=== PATIENT | female | born 1980 | race Caucasian/White ===

== ENCOUNTER 2017-11-11 14:09 | Emergency (ER) | payer MEDICAID, SELFPAY ==
[2017-11-11 14:12] VITALS: BP 126/75; PULSE 87; RESP 16; TEMP 36.7; O2SAT 96; BMI 34.2
--- NOTE | 2017-11-11 14:33 | CT_ITS ---
STUDY: CT ABDOMEN AND PELVIS WITHOUT CONTRAST REASON FOR EXAM: Female, 37 years old. Right lower quadrant pain. RADIATION DOSAGE (If Supplied By Facility): CTDIvol = ( 10.49 ) mGy, DLP = ( 550.11 ) mGycm TECHNIQUE: Transaxial images were obtained from the dome of the diaphragm to the symphysis pubis without oral contrast, and without intravenous contrast. Sagittal and coronal images were reconstructed. Individualized dose optimization techniques were used for this CT. COMPARISON: Comparison is made with prior study of July 31, 2017. FINDINGS: Minimal degree of dependent bibasilar atelectasis. The visualized portions of the heart are within normal limits. 1 again, multiple hepatic cysts are seen. The largest is along the posterolateral aspect of the right lobe of the liver. This measures 7.9 cm x 5.5 cm. There are surgical clips in the gallbladder fossa consistent with a prior cholecystectomy. Normal spleen. Normal pancreas. Normal bilateral adrenal glands. Stable right nonobstructive intrarenal calculi in the upper pole as well as the lower pole. The largest measures 3 mm. Normal left kidney. Normal visualized stomach. Normal small intestine. Normal colon. There is non-visualization of the appendix. Normal abdominal aorta. Normal inferior vena cava. Normal retroperitoneum. Normal urinary bladder. There is absence of the uterus consistent with a prior hysterectomy. Normal abdominal wall. Normal osseous structures. CT/Abdomen/Pelvis without Cont IMPRESSION: Stable hepatic cysts. Nonobstructive calculi in the right lobe of liver. Status post hysterectomy. Electronically Signed: Genaro Hines MD at 15:26 EST Tel [phone], Service support ,
[2017-11-11] MEDS: Ondansetron 4 MG/2 ML Vial IV (14:51)
[2017-11-11] MEDS: HYDROmorphone 1 MG/ML Syringe IV (14:51)
[2017-11-11] MEDS: 0.9% Normal Saline 1,000 ML 125 ML IV (14:51)
[2017-11-11 15:03] LABS: Mucous, Urine 0 SEEN /hpf (<or=2+); Red Blood Cells-Urine 0 SEEN /hpf (0-5)
[2017-11-11 15:08] LABS: Color, Urine Yellow (Yellow); Glucose, Dipstick Normal (Normal); Ketone-Dipstick 5 mg/dl (Negative); Leukocyte Esterase-Dipstick 100 /ul (Negative); Nitrite-Dipstick Negative (Negative); Occult Blood-Urine 25 /ul (Negative); Protein-Dipstick 30 mg/dl (Negative); Specific Gravity, Urine 1.025 (1.002-1.030); Urine Bilirubin Dipstick Negative (Negative); Urine Clarity Sl. Cloudy (Clear); Urine Urobilinogen 1 mg/dl (Normal)
[2017-11-11 15:14] LABS: Absolute Lymphocyte Count 2.47 X10^3/ul (0.83-4.51); Absolute Neutrophil Count 4.6 X10^3/uL (2.0-7.7); Basophil# 0.03 X10^3/uL; Basophil% 0.4 % (0-1); Eosinophil# 0.17 X10^3/uL; Eosinophils% 2.1 % (0-5); Hematocrit 41.4 % (37-47); Hemoglobin 13.3 g/dl (12.0-15.0); Lymphocyte # 2.47 X10^3/ul (4.0); Mean Corp Hgb Conc 32.1 g/gl (32-36); Mean Corpuscular Hgb 29.5 pg (27.0-32.0); Mean Corpuscular Volume 91.8 fL (81-99); Mean Platelet Vol. 10.5 fl (6.2-12.0); Monocyte# 0.71 X10^3/uL; Monocyte% 8.9 % (0-10); Neutrophil # 4.57 X10^3/uL (2.7-7.7); Neutrophil % 57.3 % (47-70); Platelet Count 248 K/mm3 (150-450); RBC Distribution Width CV 12.7 % (11.6-14.6); RBC Distribution Width SD 42.6 fl (35.1-43.9); Red Blood Count 4.51 M/mm3 (4.2-5.4)
[2017-11-11 15:15] LABS: Bacteria 4+ /hpf (None Seen); Squamous Epithelial Cells - UA > 100 SEEN /hpf (5-10); White Blood Cells 5-10 SEEN /hpf (0-5)
[2017-11-11 15:16] LABS: Calcium Oxalate Crystals Ur 1+ /hpf (<or=2+)
[2017-11-11 15:18] LABS: POSITIVE COUNT NO; POSITIVE DIFFERENTIAL NO; POSITIVE MORPHOLOGY NO
[2017-11-11 15:34] LABS: Anion Gap 8 (5-15); BUN 17 mg/dL (7-18); BUN/Creat Ratio 16.2 RATIO (10-20); Calcium,Total 9.1 mg/dL (8.5-10.1); Chloride 106 mmol/L (98-107); Creatinine, Serum 1.05 mg/dL (0.55-1.02); EST Glomerular Filtration Rate 62 mL/min (>60); Est Glom Filt Rate - Afr Amer 75 mL/min (>60); Estimated Creatinine Clearance 54.82 ml/min; Glucose 83 mg/dL (74-106); Potassium 3.6 mmol/L (3.5-5.1); Sodium Level 141 mmol/L (136-145)
--- NOTE | 2017-11-11 16:14 | ED.VISSUMM ---
- ER Visit Summary Date of Service: 11/11/17 Chief Complaint: [Abdominal pain] History of Present Illness: The patient is a 37 F [once with abdominal pain ?2 days. Patient states that the pain is in her right side and abdomen. Patient has had similar pain in the past with kidney stones. Patient has had nausea and has vomited twice. Patient denies any diarrhea. She has not had any fever. Patient does describe some dysuria. No fever.] Patient has had multiple kidney stones in the past and used to see Dr. Lorenz locally. Patient would like to follow-up with a local urologist as recently she was referred to somebody and with [place]. Physical Examination: [HEENT-PERRLA, EOMI. Cranial nerves II through XII grossly intact. TMs clear. Mucous membranes moist. No adenopathy. Cardiovascular-regular rate and rhythm without murmur or ectopy Lungs-clear to auscultation, chest wall stable without crepitus or subcu emphysema Abdomen-normoactive bowel sounds, soft. Mild tenderness to the right lower quadrant with some guarding. There is no rebound, rigidity, or perineal signs. Patient has some mild CVA tenderness on the right. Extremities-intact ?4, normal range of motion, normal pulses, atraumatic] Test Results: [Patient had a CBC with differential that was normal. Chemistries were normal. Urinalysis was a dirty specimen as she had more than 100 epis +4 bacteria. Only 5-10 WBCs and [address] flank showed liver cysts which are chronic and some small nonobstructive renal stones without evidence of ureteral stones. This was not visualized. There were no inflammatory changes around the cecum however.] Emergency Department Course and Treatment: [Patient had an IV line established. Patient was medicated initially with Dilaudid and Zofran.] Treatment Plan: [Discharged to home in stable condition. With a prescription for small amount of [place] for pain. I did do an oars report on the patient which shows that she last had a narcotic prescription in March of last year.] Disposition: Discharged to home in stable condition [] Impression: [Flank pain/abdominal pain-etiology uncertain] This note was generated with [employer] software. It may contain incorrect words, spelling, and punctuation that were not noted in review of the chart prior to signing ED Disposition - Plan for ED Patient: Chief Complaint: Abd Pain Referrals: Marcelino Albert MD [Primary Care Provider] -
--- NOTE | 2017-11-11 16:23 | ED.DEP ---
ED Disposition - Plan for ED Patient: Chief Complaint: Abd Pain Instructions: ED Flank Pain Uncertain Cause Prescriptions: Hydrocodone Bitart/Apap 5-325 [[place] 5/325] 1 - 2 tab PO Q4H PRN PRN 3 Days #12 tab PRN Reason: Pain Referrals: Marcelino Albert MD [Primary Care Provider] - 3-5 Days Claudio Wright MD [STAFF PHYSICIAN] - 3-5 Days
--- NOTE | 2017-11-11 16:26 | DCINST.ED_ITS ---
ED Disposition - Plan for ED Patient: Chief Complaint: Abd Pain Instructions: ED Flank Pain Uncertain Cause Prescriptions: Hydrocodone Bitart/Apap 5-325 [[place] 5/325] 1 - 2 tab PO Q4H PRN PRN 3 Days #12 tab PRN Reason: Pain Referrals: Marcelino Albert MD [Primary Care Provider] - 3-5 Days Claudio Wright MD [STAFF PHYSICIAN] - 3-5 Days
[2017-11-11 16:32] VITALS: BP 129/87; PULSE 73; RESP 18; O2SAT 97
--- NOTE | 2017-11-11 16:33 | ED.RN ---
THIS NURSE REVIEWED D/C INSTRUCTIONS WITH PT. PT VERBALIZED UNDERSTANDING OF INSTRUCTIONS. IV D/C. IV CATHETER INTACT. PT TOLERATED WELL. PT DENIES FURTHER NEEDS OR QUESTIONS AT THIS TIME.
== END 2017-11-11 16:34 | disposition home or self-care (01) ==
PROVIDERS: Emergency Provider Emergency Medicine; Family Provider Family Medicine; PCP Family Medicine
DX: R10.9 Unspecified abdominal pain (principal); R11.2 Nausea with vomiting, unspecified; R30.0 Dysuria; Z72.0 Tobacco use; K76.89 Other specified diseases of liver; N20.0 Calculus of kidney; Z87.442 Personal history of urinary calculi
CPT/HCPCS: 74176; 80048; 81001; 85025; 96361; 96374; 96375; 99285; J7030; J2405

== ENCOUNTER 2018-03-15 17:57 | Emergency (ER) | payer MEDICAID, SELFPAY ==
[2018-03-15 18:04] VITALS: BP 105/63; PULSE 78; RESP 17; TEMP 36.8; O2SAT 98; BMI 32.8
--- NOTE | 2018-03-15 18:26 | CT_ITS ---
STUDY: CT ABDOMEN AND PELVIS WITHOUT CONTRAST REASON FOR EXAM: Female, 37 years old. BURNING WITH URINATION.LT FLANK PAIN HX:KIDNEY STONES,CHOLECYSTECTOMY,HYSTERECTOMY RADIATION DOSAGE (If Supplied By Facility): CTDIvol = ( 9.26 ) mGy, DLP = ( 458.06 ) mGycm TECHNIQUE: Transaxial images were obtained from the dome of the diaphragm to the symphysis pubis without oral contrast, and without intravenous contrast. Sagittal and coronal images were reconstructed. Individualized dose optimization techniques were used for this CT. COMPARISON: 11.11.17. FINDINGS: The visualized lung bases are unremarkable. The visualized portions of the heart are within normal limits. Stable hepatic hypodensities. There are surgical clips in the gallbladder fossa consistent with a prior cholecystectomy. Normal spleen. Normal pancreas. Normal bilateral adrenal glands. Multiple right renal calculi. The largest measures 3.9 mm in the superior right kidney. Mild hydronephrosis caused by 1.4 mm distal left ureteral stone. There are multiple 1 mm nonobstructive left renal calyceal stones. Normal visualized stomach. Normal small intestine. Stool throughout the colon. There is non-visualization of the appendix. Normal abdominal aorta. Normal inferior vena cava. Normal retroperitoneum. Normal urinary bladder. There is absence of the uterus consistent with a prior hysterectomy. There is a small umbilical hernia containing fat. There is endplate spondylosis of the vertebral body. IMPRESSION: There is mild hydronephrosis caused by 1.4 mm distal left ureteral stone. There is a small umbilical hernia containing fat. Nonobstructive bilateral renal stones. Constipation Stable hepatic cysts. Electronically Signed: Leo Hernandez MD at 19:56 EDT , Service support , CT/Abdomen/Pelvis without Cont
--- NOTE | 2018-03-15 18:28 | ED.DCSUM_ITS ---
- ER Visit Summary Date of Service: 03/15/18 Chief Complaint: Left flank pain History of Present Illness: The patient is a 37 F presenting with left flank pain. Patient states it started earlier today. She has a history of kidney stones and states this feels similar. Pain is in the left flank. She states it occasionally radiates to the left lower quadrant. She tried Tylenol at home with no relief. History of hysterectomy and cholecystectomy. She is a smoker. She denies fever. She has nausea with no vomiting. Denies other complaints. Physical Examination: Vitals are stable. Patient is afebrile. Alert no acute distress. HEENT exam is unremarkable. Neck is supple. Lungs are clear and equal bilaterally. Heart is regular rate and rhythm. Abdomen is soft nontender nondistended. No rebound or guarding Back: Left CVA tenderness Extremities are unremarkable. Skin is warm and dry. No focal neurologic deficit. Remainder of exam is unremarkable. Emergency Department Course and Treatment: Patient is given morphine, Zofran, IV fluids. CBC, chemistries unremarkable. Urinalysis shows 10-25 white blood cells, 10-[address] flank shows 1.4 mm distal left ureteral stone. Patient's pain is controlled in the emergency department. She is advised to follow-up with Dr. Wright. She is given a prescription for [place] and Bactrim. Advised to return to ED if worsening complaints. Disposition: Discharge home Impression: Urolithiasis This note was generated with [employer] dictation software. It may contain incorrect words, spelling, and punctuation that were not noted in review of the chart prior to signing ED Disposition - Plan for ED Patient: Chief Complaint: Flank Pain Instructions: ED Stone Renal W Colic Prescriptions: Hydrocodone Bitart/Apap 5-325 [[place] 5MG-325MG] 1 tablet PO Q6H PRN PRN 3 Days # 10 tablet PRN Reason: Pain Smz/Tmp Ds [Bactrim Ds] 1 tablet PO BID #14 tablet Referrals: Marcelino Albert MD [Primary Care Provider] - Claudio Wright MD [STAFF PHYSICIAN] -
[2018-03-15] MEDS: 0.9% Normal Saline 1,000 ML 250 ML IV (19:20)
[2018-03-15] MEDS: Ondansetron 4 MG/2 ML Vial IV (19:20)
[2018-03-15 19:36] LABS: Absolute Lymphocyte Count 2.66 X10^3/ul (0.83-4.51); Absolute Neutrophil Count 5.3 X10^3/uL (2.0-7.7); Basophil# 0.02 X10^3/uL; Basophil% 0.2 % (0-1); Eosinophil# 0.19 X10^3/uL; Eosinophils% 2.1 % (0-5); Hematocrit 38.5 % (37-47); Hemoglobin 12.6 g/dl (12.0-15.0); Lymphocyte # 2.66 X10^3/ul (4.0); Mean Corp Hgb Conc 32.7 g/gl (32-36); Mean Corpuscular Hgb 30.1 pg (27.0-32.0); Mean Corpuscular Volume 91.9 fL (81-99); Mean Platelet Vol. 10.4 fl (6.2-12.0); Monocyte# 0.66 X10^3/uL; Monocyte% 7.4 % (0-10); Neutrophil # 5.31 X10^3/uL (2.7-7.7); Neutrophil % 60.1 % (47-70); Platelet Count 202 K/mm3 (150-450); RBC Distribution Width CV 12.6 % (11.6-14.6); RBC Distribution Width SD 42.5 fl (35.1-43.9); Red Blood Count 4.19 M/mm3 (4.2-5.4); White Blood Count 8.9 K/mm3 (4.4-11.0)
[2018-03-15 19:42] LABS: POSITIVE COUNT NO; POSITIVE DIFFERENTIAL NO; POSITIVE MORPHOLOGY NO
[2018-03-15 19:47] LABS: Color, Urine Yellow (Yellow); Glucose, Dipstick Normal (Normal); Ketone-Dipstick Negative (Negative); Leukocyte Esterase-Dipstick 500 /ul (Negative); Nitrite-Dipstick Negative (Negative); Occult Blood-Urine 10 /ul (Negative); Protein-Dipstick 30 mg/dl (Negative); Specific Gravity, Urine 1.025 (1.002-1.030); Urine Bilirubin Dipstick Negative (Negative); Urine Clarity Sl. Cloudy (Clear); Urine Urobilinogen Normal (Normal)
[2018-03-15 19:52] LABS: Anion Gap 6 (5-15); BUN 7 mg/dL (7-18); BUN/Creat Ratio 8.1 RATIO (10-20); Calcium,Total 8.7 mg/dL (8.5-10.1); Chloride 106 mmol/L (98-107); Creatinine, Serum 0.86 mg/dL (0.55-1.02); EST Glomerular Filtration Rate 78 mL/min (>60); Est Glom Filt Rate - Afr Amer 95 mL/min (>60); Estimated Creatinine Clearance 66.93 ml/min; Glucose 89 mg/dL (74-106); Potassium 3.5 mmol/L (3.5-5.1); Sodium Level 140 mmol/L (136-145)
[2018-03-15 19:56] LABS: White Blood Cells 10-25 SEEN /hpf (0-5)
[2018-03-15 19:57] LABS: Red Blood Cells-Urine 0-5 SEEN /hpf (0-5); Squamous Epithelial Cells - UA 10-25 SEEN /hpf (5-10)
[2018-03-15] MEDS: Morphine 4 MG/ML Syringe IV (19:57)
[2018-03-15 19:58] LABS: Amorphous Sediment 2+; Bacteria 0 SEEN /hpf (None Seen); Mucous, Urine 3+ /hpf (<or=2+)
--- NOTE | 2018-03-15 20:43 | DCINST.ED_ITS ---
ED Disposition - Plan for ED Patient: Chief Complaint: Flank Pain Instructions: ED Stone Renal W Colic Prescriptions: Hydrocodone Bitart/Apap 5-325 [[place] 5MG-325MG] 1 tablet PO Q6H PRN PRN 3 Days # 10 tablet PRN Reason: Pain Smz/Tmp Ds [Bactrim Ds] 1 tablet PO BID #14 tablet Referrals: Marcelino Albert MD [Primary Care Provider] - Claudio Wright MD [STAFF PHYSICIAN] -
[2018-03-15 20:56] VITALS: BP 122/81; PULSE 66; RESP 18; O2SAT 98
== END 2018-03-15 20:57 | disposition home or self-care (01) ==
LOC: ED 18:40
PROVIDERS: Emergency Provider Emergency Medicine; Family Provider Family Medicine; PCP Family Medicine
DX: N20.1 Calculus of ureter (principal); Z90.49 Acquired absence of other specified parts of digestive tract; Z87.442 Personal history of urinary calculi; Z90.710 Acquired absence of both cervix and uterus; Z72.0 Tobacco use
CPT/HCPCS: 74176; 80048; 81001; 85025; 99285; J7030; J2405

== ENCOUNTER 2018-06-18 18:13 | Emergency (ER) | payer MEDICAID, SELFPAY ==
[2018-06-18 18:14] VITALS: BP 92/65; PULSE 86; RESP 18; TEMP 36.8; O2SAT 97; BMI 31.1
--- NOTE | 2018-06-18 18:54 | CT_ITS ---
STUDY: CT ABDOMEN AND PELVIS WITHOUT CONTRAST REASON FOR EXAM: Female, 37 years old. Low back pain RADIATION DOSAGE (If Supplied By Facility): CTDIvol = ( 8.44 ) mGy, DLP = ( 407.04 ) mGycm TECHNIQUE: Transaxial images were obtained from the dome of the diaphragm to the symphysis pubis without oral contrast, and without intravenous contrast. Sagittal and coronal images were reconstructed. Individualized dose optimization techniques were used for this CT. COMPARISON: March 15, 2018 FINDINGS: The visualized lung bases are unremarkable. The visualized portions of the heart are within normal limits. Mild elongation of the right lobe of the liver consistent with normal variant. There are multiple cysts of varying sizes the largest of which is in the right lobe measuring approximately 7.9 x 6.15 cm bile ducts are not dilated. Gallbladder has been removed surgically.. Normal spleen. Normal pancreas. Normal bilateral adrenal glands. There are multiple approximately 5 tiny nonobstructing calculi in the right kidney without evidence for hydronephrosis or ureteral calculus. There is also a tiny nonobstructing left renal calculus. Normal visualized stomach. Normal small intestine. Normal colon. Appendix not visualized possibly postsurgical Normal abdominal aorta. Normal inferior vena cava. Normal retroperitoneum. Incompletely distended thick-walled bladder likely of no significance. Uterus has been removed surgically. Small fat-containing umbilical hernia. Lumbar spine demonstrates mild spondylosis CT/Abdomen/Pelvis without Cont IMPRESSION: Nonobstructing bilateral renal calculi without evidence for hydronephrosis or definitive evidence for ureteral stone Multiple hepatic cysts. Postop changes status post cholecystectomy and hysterectomy and probable appendectomy Electronically Signed: Marcelino Ahmadi MD at 19:40 EDT , Service support ,
[2018-06-18] MEDS: Morphine 4 MG/ML Syringe IV (19:10)
[2018-06-18] MEDS: Ondansetron 4 MG/2 ML Vial IV (19:10)
[2018-06-18 19:25] LABS: Absolute Lymphocyte Count 3.18 X10^3/ul (0.83-4.51); Absolute Neutrophil Count 3.8 X10^3/uL (2.0-7.7); Basophil# 0.04 X10^3/uL; Basophil% 0.5 % (0-1); Eosinophil# 0.27 X10^3/uL; Eosinophils% 3.5 % (0-5); Hematocrit 41.5 % (37-47); Hemoglobin 13.8 g/dl (12.0-15.0); Lymphocyte # 3.18 X10^3/ul (4.0); Lymphocyte % 40.7 % (19-41); Mean Corp Hgb Conc 33.3 g/gl (32-36); Mean Corpuscular Hgb 30.5 pg (27.0-32.0); Mean Corpuscular Volume 91.8 fL (81-99); Mean Platelet Vol. 10.9 fl (6.2-12.0); Monocyte# 0.53 X10^3/uL; Monocyte% 6.8 % (0-10); Neutrophil # 3.79 X10^3/uL (2.7-7.7); Neutrophil % 48.4 % (47-70); POSITIVE COUNT NO; POSITIVE DIFFERENTIAL NO; POSITIVE MORPHOLOGY NO; Platelet Count 221 K/mm3 (150-450); RBC Distribution Width SD 40.4 fl (35.1-43.9); Red Blood Count 4.52 M/mm3 (4.2-5.4); White Blood Count 7.8 K/mm3 (4.4-11.0)
[2018-06-18 19:39] LABS: BUN 11 mg/dL (7-18); Estimated Creatinine Clearance 47.97 ml/min; Glucose 86 mg/dL (74-106)
[2018-06-18 19:40] LABS: Anion Gap 7 (5-15); BUN/Creat Ratio 9.2 RATIO (10-20); Calcium,Total 8.9 mg/dL (8.5-10.1); Chloride 102 mmol/L (98-107); EST Glomerular Filtration Rate 53 mL/min (>60); Est Glom Filt Rate - Afr Amer 64 mL/min (>60); Potassium 3.6 mmol/L (3.5-5.1); Sodium Level 138 mmol/L (136-145)
--- NOTE | 2018-06-18 20:08 | NURSING ---
THIS NURSE ACCIDENTLY DOCUMENTED MORPHINE EFFECTIVENESS ON THE ZOFRAN EFFECTIVENESS. ZOFRAN WAS EFFECTIVE. NO VOMITING NOTED.
[2018-06-18 20:09] LABS: Bacteria 0 SEEN /hpf (None Seen); Red Blood Cells-Urine 0 SEEN /hpf (0-5)
[2018-06-18 20:18] LABS: Color, Urine Yellow (Yellow); Glucose, Dipstick Normal (Normal); Ketone-Dipstick 5 mg/dl (Negative); Leukocyte Esterase-Dipstick 500 /ul (Negative); Nitrite-Dipstick Negative (Negative); Occult Blood-Urine 25 /ul (Negative); Protein-Dipstick 30 mg/dl (Negative); Urine Bilirubin Dipstick Negative (Negative); Urine Clarity Sl. Cloudy (Clear); Urine Urobilinogen 1 mg/dl (Normal)
[2018-06-18 20:28] LABS: White Blood Cells 0-5 SEEN /hpf (0-5)
[2018-06-18 20:29] LABS: Hyaline Cast 0-5 SEEN /lpf (0-5); Mucous, Urine 4+ /hpf (<or=2+); Squamous Epithelial Cells - UA 10-25 SEEN /hpf (5-10)
[2018-06-18 20:30] LABS: Amorphous Sediment 2+; Calcium Oxalate Crystals Ur RARE /hpf (<or=2+)
--- NOTE | 2018-06-18 20:39 | ED.VISSUMM ---
- ER Visit Summary Date of Service: 06/18/18 Chief Complaint: Flank pain History of Present Illness: The patient is a 37 F who states that she has right-sided flank pain and dysuria. She also notes urinary frequency. This is day 2 of symptoms. She has a history of kidney stones. No fevers. She does note nausea. Physical Examination: Afebrile vital signs stable Gen: Well-nourished well-developed Head: Normocephalic atraumatic Eyes: Perrl EOMI ENT: TMs clear no rhinorrhea moist mucous membranes Neck: Supple no lymphadenopathy no JVD nontender CVS: Regular rate rhythm no murmurs normal S1-S2 Respiratory: No distress clear to auscultation bilaterally chest nontender Abdomen: Soft nontender nondistended normal bowel sounds no masses Back: Mild right CVA tenderness Extremity: Nontender no edema Skin: Normal color no rash Neuro: alert orientated ?3 CN II-XII intact normal strength sensation reflexes gait cerebellar Psych: Normal affect normal mood Test Results: CBC BMP normal. CT abdomen pelvis shows no obvious ureterolithiasis. Urinalysis contaminated with skin cells at 10-25 epithelial cells. 0-5 white cells 0 red blood cells and 0 bacteria. Emergency Department Course and Treatment: Patient was received morphine for pain and Zofran for nausea. I will write her to have Pyridium. Follow-up with her primary care physician if not improved return if worsening or concerns Impression: 1. Dysuria 2. Flank pain-right This note was generated with [employer] dictation software. It may contain incorrect words, spelling, and punctuation that were not noted in review of the chart prior to signing ED Disposition - Plan for ED Patient: Disposition: Home or Assisted Living Chief Complaint: Back Instructions: ED Flank Pain Uncertain Cause, Dysuria Prescriptions: Phenazopyridine HCl [Pyridium] 200 mg PO TID #10 tab Referrals: Marcelino Albert MD [Primary Care Provider] - 3-5 Days if not improving
--- NOTE | 2018-06-18 20:42 | ED.DCSUM_ITS ---
- ER Visit Summary Date of Service: 06/18/18 Chief Complaint: Flank pain History of Present Illness: The patient is a 37 F who states that she has right- sided flank pain and dysuria. She also notes urinary frequency. This is day 2 of symptoms. She has a history of kidney stones. No fevers. She does note nausea. Physical Examination: Afebrile vital signs stable Gen: Well-nourished well-developed Head: Normocephalic atraumatic Eyes: Perrl EOMI ENT: TMs clear no rhinorrhea moist mucous membranes Neck: Supple no lymphadenopathy no JVD nontender CVS: Regular rate rhythm no murmurs normal S1-S2 Respiratory: No distress clear to auscultation bilaterally chest nontender Abdomen: Soft nontender nondistended normal bowel sounds no masses Back: Mild right CVA tenderness Extremity: Nontender no edema Skin: Normal color no rash Neuro: alert orientated ?3 CN II-XII intact normal strength sensation reflexes gait cerebellar Psych: Normal affect normal mood Test Results: CBC BMP normal. CT abdomen pelvis shows no obvious ureterolithiasis. Urinalysis contaminated with skin cells at 10-25 epithelial cells. 0-5 white cells 0 red blood cells and 0 bacteria. Emergency Department Course and Treatment: Patient was received morphine for pain and Zofran for nausea. I will write her to have Pyridium. Follow-up with her primary care physician if not improved return if worsening or concerns Impression: 1. Dysuria 2. Flank pain-right This note was generated with [employer] dictation software. It may contain incorrect words, spelling, and punctuation that were not noted in review of the chart prior to signing ED Disposition - Plan for ED Patient: Disposition: Home or Assisted Living Chief Complaint: Back Instructions: ED Flank Pain Uncertain Cause, Dysuria Prescriptions: Phenazopyridine HCl [Pyridium] 200 mg PO TID #10 tab Referrals: Marcelino Albert MD [Primary Care Provider] - 3-5 Days if not improving
[2018-06-18] MEDS: Phenazopyridine 95 MG Tablet 190 MG PO (20:47)
[2018-06-18 20:48] VITALS: BP 103/88; PULSE 56; O2SAT 95
== END 2018-06-18 20:51 | disposition home or self-care (01) ==
PROVIDERS: Emergency Provider Emergency Medicine; Family Provider Family Medicine; PCP Family Medicine
DX: R30.0 Dysuria (principal); R10.9 Unspecified abdominal pain; Z87.442 Personal history of urinary calculi
CPT/HCPCS: 74176; 80048; 81001; 85025; 99284; A4216; J2405

== ENCOUNTER 2018-06-26 14:00 | Emergency (ER) | payer MEDICAID, SELFPAY ==
[2018-06-26 14:37] VITALS: BP 136/85; PULSE 51; RESP 18; TEMP 36.7; O2SAT 96; BMI 31.1
[2018-06-26 14:40] VITALS: BP 136/85; PULSE 51; RESP 18; O2SAT 97
--- NOTE | 2018-06-26 14:49 | CT_ITS ---
STUDY: CT ABDOMEN AND PELVIS WITHOUT CONTRAST REASON FOR EXAM: Female, 37 years old. Right flank pain RADIATION DOSAGE (If Supplied By Facility): CTDIvol = ( 7.09 ) mGy, DLP = ( 355.94 ) mGycm TECHNIQUE: Transaxial images were obtained from the dome of the diaphragm to the symphysis pubis without oral contrast, and without intravenous contrast. Sagittal and coronal images were reconstructed. Individualized dose optimization techniques were used for this CT. COMPARISON: 06/18/2018. FINDINGS: The visualized lung bases are unremarkable. The visualized portions of the heart are within normal limits. There again is a large cyst in the posterior segment of the right lobe of the liver unchanged since the prior examination measuring about 8.5 x 5.5 cm smaller cysts are also seen in the left lobe of the liver and anterior segment of the right lobe again unchanged. There are surgical clips in the gallbladder fossa consistent with a prior cholecystectomy. Normal spleen. Normal pancreas. Normal bilateral adrenal glands. There is moderate right hydronephrosis. There is a 5 mm stone in the proximal left ureter retracted from the right renal pelvis the previous exam. There are additional smaller nonobstructing stones in the right kidney. There is a 4 mm nonobstructing stone in the left kidney unchanged.. There is no evidence of left hydronephrosis. There is focal bulging of the lateral aspect of the left kidney unchanged since previous exam. Normal visualized stomach. There are nonspecific fluid-filled small bowel loops. There is no evidence of bowel obstruction. There is fecal retention. There is non-visualization of the appendix. Normal abdominal aorta. Normal inferior vena cava. Normal retroperitoneum. The bladder is not distended. Normal abdominal wall. There are mild degenerative changes in the lower thoracic and upper lumbar spine. CT/Abdomen/Pelvis without Cont IMPRESSION: 1. Moderate right hydronephrosis secondary to 5 mm stone in the proximal right ureter as described above. 2. Bilateral nonobstructing renal stones. 3. Multiple liver cysts unchanged since the prior exam. 4. Nonvisualization the appendix. Electronically Signed: Brandon Ross MD at 15:50 EDT Tel , Service support ,
[2018-06-26] MEDS: Ketorolac 30 MG/ML Syringe 15 MG IV (15:09)
[2018-06-26] MEDS: Ondansetron 4 MG/2 ML Vial IV (15:09)
[2018-06-26] MEDS: 0.9% Normal Saline 1,000 ML 250 ML IV (15:09)
[2018-06-26 15:27] LABS: Absolute Neutrophil Count 9.1 X10^3/uL (2.0-7.7); Basophil# 0.02 X10^3/uL; Basophil% 0.2 % (0-1); Eosinophil# 0.08 X10^3/uL; Eosinophils% 0.6 % (0-5); Hematocrit 42.2 % (37-47); Hemoglobin 14.4 g/dl (12.0-15.0); Lymphocyte % 20.1 % (19-41); Mean Corp Hgb Conc 34.1 g/gl (32-36); Mean Corpuscular Hgb 30.7 pg (27.0-32.0); Mean Platelet Vol. 10.6 fl (6.2-12.0); Monocyte# 0.75 X10^3/uL; Neutrophil # 9.09 X10^3/uL (2.7-7.7); Neutrophil % 72.9 % (47-70); Platelet Count 240 K/mm3 (150-450); RBC Distribution Width CV 12.1 % (11.6-14.6); RBC Distribution Width SD 39.1 fl (35.1-43.9); Red Blood Count 4.69 M/mm3 (4.2-5.4); White Blood Count 12.5 K/mm3 (4.4-11.0)
[2018-06-26 15:41] LABS: POSITIVE COUNT NO; POSITIVE DIFFERENTIAL NO; POSITIVE MORPHOLOGY NO
[2018-06-26 15:42] LABS: Color, Urine Yellow (Yellow); Glucose, Dipstick Normal (Normal); Ketone-Dipstick 15 mg/dl (Negative); Leukocyte Esterase-Dipstick 100 /ul (Negative); Nitrite-Dipstick Positive (Negative); Occult Blood-Urine 250 /ul (Negative); Protein-Dipstick 100 mg/dl (Negative); Specific Gravity, Urine 1.025 (1.002-1.030); Urine Clarity Cloudy (Clear); Urine Urobilinogen 4 mg/dl (Normal)
[2018-06-26 15:45] LABS: Urine Bilirubin Dipstick 1 mg/dL (Negative)
[2018-06-26 15:47] LABS: Anion Gap 7 (5-15); BUN 14 mg/dL (7-18); BUN/Creat Ratio 10.8 RATIO (10-20); Calcium,Total 9.3 mg/dL (8.5-10.1); Chloride 103 mmol/L (98-107); EST Glomerular Filtration Rate 49 mL/min (>60); Est Glom Filt Rate - Afr Amer 59 mL/min (>60); Estimated Creatinine Clearance 44.28 ml/min; Glucose 99 mg/dL (74-106); Potassium 3.6 mmol/L (3.5-5.1); Sodium Level 136 mmol/L (136-145)
[2018-06-26 16:03] VITALS: BP 125/78; PULSE 55; RESP 14; O2SAT 98
[2018-06-26 16:23] LABS: Mucous, Urine 2+ /hpf (<or=2+); Red Blood Cells-Urine 50-100 SEEN /hpf (0-5)
[2018-06-26 16:24] LABS: Bacteria 2+ /hpf (None Seen); Calcium Oxalate Crystals Ur RARE /hpf (<or=2+); White Blood Cells 0-5 SEEN /hpf (0-5)
[2018-06-26 16:26] LABS: Squamous Epithelial Cells - UA 10-25 SEEN /hpf (5-10)
--- NOTE | 2018-06-26 16:40 | ED.VISSUMM ---
- ER Visit Summary Date of Service: 06/26/18 Chief Complaint: Right flank pain History of Present Illness: The patient is a 37 F who presents for 1 week of right-sided flank pain. Pain acutely worsened today. Patient is having a stabbing and throbbing pain in the right flank. She has had associated nausea and vomiting. She also has had dysuria, frequency and low back pain. She was seen in the emergency department for the same complaint 1 week ago and had a negative CT scan. She was prescribed Pyridium but continued to have complaints. She saw her family doctor yesterday and was told that she likely has a kidney stone. She was told to drink plenty of water. Patient presents today due to continued pain. He denies any history of kidney stones. She has a history of a hysterectomy. No fever or other complaints at this time. Physical Examination: Vital signs: afebrile, hemodynamically stable, no hypoxia on room air General: well nourished, well developed, in no distress Skin: warm, dry, no rash, no pallor HEENT: normocephalic and atraumatic; PERRL, EOMI, moist mucous membranes Cardiovascular: regular rate and rhythm without murmurs, no peripheral edema, 2+ pulses all distal extremities Respiratory: No increased work of breathing, lungs are clear to auscultation bilaterally, no rales, rhonchi or wheezing Abdominal: Abdomen is soft, tender in the right lower quadrant, positive right CVA tenderness ,With normoactive bowel sounds, no guarding or rebound, no masses MSK: Moves all extremities, no deformities, normal strength Neuro: Awake and alert, oriented ?4. No facial droop, sensation and motor function intact and symmetric Test Results: Abnormal Lab Results 06/26/18 06/26/18 06/26/18 15:05 15:05 15:05 WBC 12.5 H RBC 4.69 Hgb 14.4 Hct 42.2 MCV 90.0 MCH 30.7 MCHC 34.1 RDW 12.1 RDW Differential 39.1 Plt Count 240 MPV 10.6 Immature Gran % (Auto) 0.200 Neut % (Auto) 72.9 H Lymph % (Auto) 20.1 [place] % (Auto) 6.0 Eos % (Auto) 0.6 Baso % (Auto) 0.2 Absolute Neuts (auto) 9.1 H Absolute Lymphs (auto) 2.50 Total Counted Not Reportable Sodium 136 Potassium 3.6 Chloride 103 Carbon Dioxide 26.0 Anion Gap 7 BUN 14 Creatinine 1.30 H Estim Creat Clear Calc 44.28 Est GFR (MDRD) Af Amer 59 L Est GFR (MDRD) Non-Af 49 L BUN/Creatinine Ratio 10.8 Glucose 99 Calcium 9.3 Urine Color Yellow Urine Clarity Cloudy Urine pH 5.0 Ur Specific [place] 1.025 Urine Protein 100 H Urine Glucose (UA) Normal Urine Ketones 15 H Urine Occult Blood 250 H Urine Nitrite Positive H Urine Bilirubin 1 H Urine Urobilinogen 4 H Ur Leukocyte Esterase 100 H Urine RBC 50-100 SEEN Urine WBC 0-5 SEEN Ur Squamous Epith Cells 10-25 SEEN Calcium Oxalate Crystal RARE Urine Bacteria 2+ Urine Mucus 2+ Clinical Impression(s) from Imaging Studies Abdomen/Pelvis CT 06/26/18 14:49 IMPRESSION: 1. Moderate right hydronephrosis secondary to 5 mm stone in the proximal right ureter as described above. 2. Bilateral nonobstructing renal stones. 3. Multiple liver cysts unchanged since the prior exam. 4. Nonvisualization the appendix. Electronically Signed: Brandon Ross MD at 15:50 EDT Tel , Service support , Medications Given Hydrocodone Bitart/Acetaminophen ([place] 5mg-325mg) 0 tablet PO .TAKE HOME MED KERI Sodium Chloride () 1,000 mls @ 250 mls/hr IV .Q4H KERI Last Admin: 06/26/18 15:09 Dose: 250 mls/hr Discontinued Medications Hydrocodone Bitart/Acetaminophen ([place] 5mg-325mg) 1 tablet PO X1 ONE Stop: 06/26/18 16:39 Ketorolac Tromethamine (Toradol) 15 mg IV X1 ONE Stop: 06/26/18 14:50 Last Admin: 06/26/18 15:09 Dose: 15 mg Ondansetron HCl (Zofran) 4 mg IV X1 ONE Stop: 06/26/18 14:50 Last Admin: 06/26/18 15:09 Dose: 4 mg Emergency Department Course and Treatment: Patient is benign, only with some mild tenderness to palpation of the right lower quadrant, and does not seem consistent with acute appendicitis. Patient was given Toradol and Zofran for her pain. Urine showed hematuria, contamination with epithelial cells and no pyuria. Culture is pending. Patient had mild leukocytosis of 12.5. Creatinine is 1.3, and was 1.[address] flank showed a 5 mm proximal right ureteral stone that was not in the ureter 1 week ago when she was seen for the same complaint. There is also mild hydronephrosis. Given patient's acute increase in her right flank pain, now with a 5 mm stone noted in the ureter, she will be treated for ureteral colic. She has no signs of urinary infection and thus antibiotics not started. She was given a prescription for naproxen and hydrocodone for pain. Will follow up with urology this week. Patient discharged home. Treatment Plan: [] Disposition: [] Impression: Right ureteral colic, 5 mm proximal ureteral stone This note was generated with [employer] dictation software. It may contain incorrect words, spelling, and punctuation that were not noted in review of the chart prior to signing ED Disposition - Plan for ED Patient: Chief Complaint: Flank Pain Prescriptions: Hydrocodone Bitart/Apap 5-325 [[place] 5MG-325MG] 1 tab PO Q6H PRN PRN 3 Days #12 tab PRN Reason: Pain Ondansetron [Zofran Odt] 4 mg PO Q8H PRN PRN #10 tab PRN Reason: Nausea Naproxen [Naprosyn] 500 mg PO BID PRN #20 tab Referrals: Marcelino Albert MD [Primary Care Provider] -
--- NOTE | 2018-06-26 16:44 | ED.DCSUM_ITS ---
- ER Visit Summary Date of Service: 06/26/18 Chief Complaint: Right flank pain History of Present Illness: The patient is a 37 F who presents for 1 week of right-sided flank pain. Pain acutely worsened today. Patient is having a stabbing and throbbing pain in the right flank. She has had associated nausea and vomiting. She also has had dysuria, frequency and low back pain. She was seen in the emergency department for the same complaint 1 week ago and had a negative CT scan. She was prescribed Pyridium but continued to have complaints. She saw her family doctor yesterday and was told that she likely has a kidney stone. She was told to drink plenty of water. Patient presents today due to continued pain. He denies any history of kidney stones. She has a history of a hysterectomy. No fever or other complaints at this time. Physical Examination: Vital signs: afebrile, hemodynamically stable, no hypoxia on room air General: well nourished, well developed, in no distress Skin: warm, dry, no rash, no pallor HEENT: normocephalic and atraumatic; PERRL, EOMI, moist mucous membranes Cardiovascular: regular rate and rhythm without murmurs, no peripheral edema, 2+ pulses all distal extremities Respiratory: No increased work of breathing, lungs are clear to auscultation bilaterally, no rales, rhonchi or wheezing Abdominal: Abdomen is soft, tender in the right lower quadrant, positive right CVA tenderness ,With normoactive bowel sounds, no guarding or rebound, no masses MSK: Moves all extremities, no deformities, normal strength Neuro: Awake and alert, oriented ?4. No facial droop, sensation and motor function intact and symmetric Test Results: Abnormal Lab Results 06/26/18 06/26/18 06/26/18 15:05 15:05 15:05 WBC 12.5 H RBC 4.69 Hgb 14.4 Hct 42.2 MCV 90.0 MCH 30.7 MCHC 34.1 RDW 12.1 RDW Differential 39.1 Plt Count 240 MPV 10.6 Immature Gran % (Auto) 0.200 Neut % (Auto) 72.9 H Lymph % (Auto) 20.1 [place] % (Auto) 6.0 Eos % (Auto) 0.6 Baso % (Auto) 0.2 Absolute Neuts (auto) 9.1 H Absolute Lymphs (auto) 2.50 Total Counted Not Reportable Sodium 136 Potassium 3.6 Chloride 103 Carbon Dioxide 26.0 Anion Gap 7 BUN 14 Creatinine 1.30 H Estim Creat Clear Calc 44.28 Est GFR (MDRD) Af Amer 59 L Est GFR (MDRD) Non-Af 49 L BUN/Creatinine Ratio 10.8 Glucose 99 Calcium 9.3 Urine Color Yellow Urine Clarity Cloudy Urine pH 5.0 Ur Specific [place] 1.025 Urine Protein 100 H Urine Glucose (UA) Normal Urine Ketones 15 H Urine Occult Blood 250 H Urine Nitrite Positive H Urine Bilirubin 1 H Urine Urobilinogen 4 H Ur Leukocyte Esterase 100 H Urine RBC 50-100 SEEN Urine WBC 0-5 SEEN Ur Squamous Epith Cells 10-25 SEEN Calcium Oxalate Crystal RARE Urine Bacteria 2+ Urine Mucus 2+ Clinical Impression(s) from Imaging Studies Abdomen/Pelvis CT 06/26/18 14:49 IMPRESSION: 1. Moderate right hydronephrosis secondary to 5 mm stone in the proximal right ureter as described above. 2. Bilateral nonobstructing renal stones. 3. Multiple liver cysts unchanged since the prior exam. 4. Nonvisualization the appendix. Electronically Signed: Brandon Ross MD at 15:50 EDT Tel , Service support , Medications Given Hydrocodone Bitart/Acetaminophen ([place] 5mg-325mg) 0 tablet PO .TAKE HOME MED KERI Sodium Chloride () 1,000 mls @ 250 mls/hr IV .Q4H KERI Last Admin: 06/26/18 15:09 Dose: 250 mls/hr Discontinued Medications Hydrocodone Bitart/Acetaminophen ([place] 5mg-325mg) 1 tablet PO X1 ONE Stop: 06/26/18 16:39 Ketorolac Tromethamine (Toradol) 15 mg IV X1 ONE Stop: 06/26/18 14:50 Last Admin: 06/26/18 15:09 Dose: 15 mg Ondansetron HCl (Zofran) 4 mg IV X1 ONE Stop: 06/26/18 14:50 Last Admin: 06/26/18 15:09 Dose: 4 mg Emergency Department Course and Treatment: Patient is benign, only with some mild tenderness to palpation of the right lower quadrant, and does not seem consistent with acute appendicitis. Patient was given Toradol and Zofran for her pain. Urine showed hematuria, contamination with epithelial cells and no pyuria. Culture is pending. Patient had mild leukocytosis of 12.5. Creatinine is 1.3, and was 1.[address] flank showed a 5 mm proximal right ureteral stone that was not in the ureter 1 week ago when she was seen for the same c omplaint. There is also mild hydronephrosis. Given patient's acute increase in her right flank pain, now with a 5 mm stone noted in the ureter, she will be treated for ureteral colic. She has no signs of urinary infection and thus antibiotics not started. She was given a prescription for naproxen and hydrocodone for pain. Will follow up with urology this week. Patient discharged home. Treatment Plan: [] Disposition: [] Impression: Right ureteral colic, 5 mm proximal ureteral stone This note was generated with [employer] dictation software. It may contain incorrect words, spelling, and punctuation that were not noted in review of the chart prior to signing ED Disposition - Plan for ED Patient: Chief Complaint: Flank Pain Prescriptions: Hydrocodone Bitart/Apap 5-325 [[place] 5MG-325MG] 1 tab PO Q6H PRN PRN 3 Days #12 tab PRN Reason: Pain Ondansetron [Zofran Odt] 4 mg PO Q8H PRN PRN #10 tab PRN Reason: Nausea Naproxen [Naprosyn] 500 mg PO BID PRN #20 tab Referrals: Marcelino Albert MD [Primary Care Provider] -
--- NOTE | 2018-06-26 16:44 | ED.DEP ---
ED Disposition - Plan for ED Patient: Disposition: Home or Assisted Living Chief Complaint: Flank Pain Instructions: ED Stone Renal W Colic Prescriptions: Hydrocodone Bitart/Apap 5-325 [[place] 5MG-325MG] 1 tab PO Q6H PRN PRN 3 Days #12 tab PRN Reason: Pain Ondansetron [Zofran Odt] 4 mg PO Q8H PRN PRN #10 tab PRN Reason: Nausea Naproxen [Naprosyn] 500 mg PO BID PRN #20 tab Referrals: Claudio Wright MD [STAFF PHYSICIAN] - 5-7 Days Marcelino Albert MD [Primary Care Provider] - 1 Week if not improving Additional Instructions: Take the pain medication as prescribed as needed for pain. Follow-up with urology this week for another evaluation. Return to the emergency department if you develop a fever, uncontrolled pain, or have any other concerns or changes in your condition. If you have any worsening of your condition or any new concerning symptoms, please return immediately to the emergency department for another evaluation.
[2018-06-26] MEDS: HYDROcodone Bitartrate/Apap 5/325 Tablet PO (16:48)
[2018-06-26 16:53] VITALS: BP 148/80; PULSE 56; RESP 14; O2SAT 98
--- NOTE | 2018-06-26 16:57 | ED.RN ---
[facility] 4 HOME MED GIVEN PER MD ORDER
== END 2018-06-26 16:58 | disposition home or self-care (01) ==
PROVIDERS: Emergency Provider Emergency Medicine; Family Provider Family Medicine; PCP Family Medicine
DX: N20.1 Calculus of ureter (principal)
CPT/HCPCS: 74176; 80048; 81001; 85025; 99285; J7030; J2405

== ENCOUNTER 2018-09-10 16:06 | Emergency (ER) | payer MEDICAID, SELFPAY ==
[2018-09-10 16:07] VITALS: BP 143/85; PULSE 58; RESP 16; TEMP 36.8; O2SAT 100; BMI 31.1
[2018-09-10 17:05] LABS: Color, Urine Yellow (Yellow); Glucose, Dipstick Normal (Normal); Ketone-Dipstick 15 mg/dl (Negative); Leukocyte Esterase-Dipstick 100 /ul (Negative); Nitrite-Dipstick Negative (Negative); Occult Blood-Urine 250 /ul (Negative); Protein-Dipstick 30 mg/dl (Negative); Urine Bilirubin Dipstick Negative (Negative); Urine Clarity Sl. Cloudy (Clear); Urine Urobilinogen 1 mg/dl (Normal)
[2018-09-10] MEDS: Naproxen 250 MG Tablet 500 MG PO (17:12)
[2018-09-10] MEDS: Ondansetron 4 MG/2 ML Vial IV ×2 (17:12→18:04)
[2018-09-10] MEDS: Morphine 4 MG/ML Syringe IV ×2 (17:12→18:04)
[2018-09-10] MEDS: 0.9% Normal Saline 1,000 ML 1000 ML IV (17:12)
[2018-09-10 17:14] VITALS: BP 142/87; PULSE 87; RESP 14; O2SAT 99
[2018-09-10 17:18] LABS: Anion Gap 10 (5-15); BUN 11 mg/dL (7-18); BUN/Creat Ratio 11.1 RATIO (10-20); Calcium,Total 9.2 mg/dL (8.5-10.1); Chloride 110 mmol/L (98-107); Creatinine, Serum 0.99 mg/dL (0.55-1.02); EST Glomerular Filtration Rate 67 mL/min (>60); Est Glom Filt Rate - Afr Amer 81 mL/min (>60); Estimated Creatinine Clearance 57.57 ml/min; Glucose 106 mg/dL (74-106); Potassium 3.4 mmol/L (3.5-5.1); Sodium Level 141 mmol/L (136-145)
[2018-09-10 17:22] LABS: Absolute Lymphocyte Count 2.81 X10^3/ul (0.83-4.51); Absolute Neutrophil Count 9.2 X10^3/uL (2.0-7.7); Basophil# 0.03 X10^3/uL; Basophil% 0.2 % (0-1); Eosinophil# 0.11 X10^3/uL; Eosinophils% 0.8 % (0-5); Hematocrit 41.5 % (37-47); Lymphocyte # 2.81 X10^3/ul (4.0); Lymphocyte % 21.7 % (19-41); Mean Corp Hgb Conc 33.7 g/gl (32-36); Mean Corpuscular Hgb 30.6 pg (27.0-32.0); Mean Corpuscular Volume 90.8 fL (81-99); Mean Platelet Vol. 10.8 fl (6.2-12.0); Monocyte# 0.83 X10^3/uL; Monocyte% 6.4 % (0-10); Neutrophil # 9.17 X10^3/uL (2.7-7.7); Neutrophil % 70.7 % (47-70); Platelet Count 290 K/mm3 (150-450); RBC Distribution Width CV 12.5 % (11.6-14.6); RBC Distribution Width SD 41.8 fl (35.1-43.9); Red Blood Count 4.57 M/mm3 (4.2-5.4)
[2018-09-10 17:28] LABS: Bacteria RARE /hpf (None Seen); Mucous, Urine 1+ /hpf (<or=2+); Red Blood Cells-Urine 50-100 SEEN /hpf (0-5); Squamous Epithelial Cells - UA 5-10 SEEN /hpf (5-10); White Blood Cells 25-50 SEEN /hpf (0-5)
[2018-09-10 17:29] LABS: Amorphous Sediment 1+ URATE
[2018-09-10 17:45] LABS: POSITIVE COUNT NO; POSITIVE DIFFERENTIAL NO; POSITIVE MORPHOLOGY NO
--- NOTE | 2018-09-10 17:52 | CT_ITS ---
STUDY: CT ABDOMEN AND PELVIS WITHOUT CONTRAST REASON FOR EXAM: Female, 38 years old. Right flank pain, nausea RADIATION DOSAGE (If Supplied By Facility): CTDIvol = ( 8.78 ) mGy, DLP = ( 440.72 ) mGycm TECHNIQUE: Transaxial images were obtained from the dome of the diaphragm to the symphysis pubis without oral contrast, and without intravenous contrast. Sagittal and coronal images were reconstructed. Individualized dose optimization techniques were used for this CT. COMPARISON: June 26, 2018 FINDINGS: The visualized lung bases are unremarkable. The visualized portions of the heart are within normal limits. Multiple cysts up to 8.5 cm are noted in the liver. Status post cholecystectomy. No significant dilatation of the extrahepatic biliary system. Normal spleen. Normal pancreas. Normal bilateral adrenal glands. There are 3 nonobstructive stones up to 3 mm in the right kidney. Right hydroureter. There are two 2 mm stone at the distal right ureter approximately 2 cm proximal to the right UVJ. There is an obstructive stone at the right UVJ measuring 4 mm. Nonobstructive 2 mm stone in the left kidney. Normal visualized stomach. Normal small intestine. Normal colon. The appendix is not visualized. Normal abdominal aorta. Normal inferior vena cava. Normal retroperitoneum. Normal urinary bladder. Right adnexal cystic 2.8 cm nodular lesion is noted. Normal abdominal wall. Normal osseous structures. CT/Abdomen/Pelvis without Cont IMPRESSION: Bilateral renal calculi. Right hydronephrosis and right hydroureter with multiple distal right ureteral stones. Right adnexal cystic lesion is noted since the previous study. Electronically Signed: Brian Lynn DO at 20:33 EST Tel [phone], Service support ,
[2018-09-10 20:42] VITALS: BP 110/58; PULSE 60; RESP 16; TEMP 36.7; O2SAT 100
--- NOTE | 2018-09-10 21:05 | ED.DCSUM_ITS ---
- ER Visit Summary Date of Service: 09/10/18 Chief Complaint: Right flank pain History of Present Illness: The patient is a 38 F who woke today with right flank pain and nausea. She was seen in June for a 5 mm proximal right ureter stone. She believes she passed that stone and never followed up with urology. CT at that time also showed additional small stones in the right kidney. She denies fever or chills. She has had prior hysterectomy. Physical Examination: Vital signs are unremarkable. Patient sitting upright in bed no acute distress. Heart is regular rate and rhythm. Lung sounds are clear. Abdomen is soft nontender. Back examination was mild CVA tenderness on the right. Test Results: CBC was a white count of 13.0 with normal differential. Chemistry studies significant for potassium 3.4. Urinalysis does show 25-50 white blood cells. 5100 RBCs are noted with 5-10 epithelial cells. Rare bacteria is noted with no nitrites. Emergency Department Course and Treatment: Patient was initially given morphine, Zofran, fluids, and naproxen. She has an allergy to Toradol. On repeat exam she noted no change in her pain. She was given another dose of morphine and Zofran. CT flank was ordered at that time. She has bilateral renal calculi. There is right hydronephrosis and right hydroureter with multiple distal right ureteral stones. She has 3 stones total, 2 mm, 2 mm, 4 mm. On repeat examination after second dose of pain medication patient states that she feels significantly improved and is ready to go home. I did discuss with her that she is currently passing 3 stones, but they are all small enough that she should be able to pass them. She is given pain and nausea medication for home along with Flomax. She is referred to urology for follow-up as needed. Treatment Plan: [] Disposition: Discharge Impression: Multiple right ureteral stones This note was generated with [employer] dictation software. It may contain incorrect words, spelling, and punctuation that were not noted in review of the chart prior to signing ED Disposition - Plan for ED Patient: Disposition: Home or Assisted Living Chief Complaint: Flank Pain Instructions: ED Stone Renal W Colic Prescriptions: Hydrocodone Bitart/Apap 5-325 [[place] 5MG-325MG] 1 tablet PO Q6H PRN PRN 3 Days #20 tablet PRN Reason: Pain Ondansetron [Zofran Odt] 4 mg PO Q8H PRN PRN #10 tablet PRN Reason: Nausea Naproxen [Naprosyn] 500 mg PO BID PRN PRN #20 tablet PRN Reason: Pain Tamsulosin HCl [Flomax] 0.4 mg PO DAILY #7 capsule Referrals: Claudio Wright MD [STAFF PHYSICIAN] - As Needed
[2018-09-10] MEDS: HYDROcodone Bitartrate/Apap 5/325 Tablet PO (21:17)
[2018-09-10] MEDS: Ondansetron ODT 4 MG Tablet PO (21:17)
[2018-09-10 21:19] VITALS: RESP 18
== END 2018-09-10 21:20 | disposition home or self-care (01) ==
PROVIDERS: Emergency Provider Emergency Medicine; Family Provider Family Medicine; PCP Family Medicine
DX: N13.2 Hydronephrosis with renal and ureteral calculous obstruction (principal); Z72.0 Tobacco use; Z87.442 Personal history of urinary calculi; Z90.710 Acquired absence of both cervix and uterus
CPT/HCPCS: 74176; 80048; 81001; 85025; 96361; 96374; 96375; 96376; 99283; A4216; J2405

== ENCOUNTER 2019-02-19 19:18 | Emergency (ER) | payer SELFPAY ==
[2019-02-19 19:20] VITALS: BP 147/80; PULSE 82; RESP 16; TEMP 37; O2SAT 97; BMI 34.8
--- NOTE | 2019-02-19 19:28 | CT_ITS ---
STUDY: CT ABDOMEN AND PELVIS WITHOUT CONTRAST REASON FOR EXAM: Female, 38 years old. Right flank pain nausea and vomiting, history of kidney stones RADIATION DOSAGE (If Supplied By Facility): CTDIvol = ( 11.94 ) mGy, DLP = ( 578.68 ) mGycm TECHNIQUE: Transaxial images were obtained from the dome of the diaphragm to the symphysis pubis without oral contrast, and without intravenous contrast. Sagittal and coronal images were reconstructed. Individualized dose optimization techniques were used for this CT. COMPARISON: Prior study of 09/10/2018 FINDINGS: The visualized lung bases are unremarkable. The visualized portions of the heart are within normal limits. There are multiple hepatic cysts measuring up to 9.0 x 6.5 cm. There are surgical clips in the gallbladder fossa consistent with a prior cholecystectomy. Normal spleen. Normal pancreas. Normal bilateral adrenal glands. There is a nonobstructing 3 mm calculus of the right kidney. Normal left kidney. Normal visualized stomach. Normal small intestine. Normal colon. There is non-visualization of the appendix. Normal abdominal aorta. Normal inferior vena cava. Normal retroperitoneum. Normal urinary bladder. There is absence of the uterus consistent with a prior hysterectomy. There is a small umbilical hernia containing fat. Normal osseous structures. CT/Abdomen/Pelvis without Cont IMPRESSION: 1. Multiple hepatic cysts measuring up to 9.0 x 6.5 cm. These appear similar to the previous study. 2. Status post cholecystectomy and hysterectomy. 3. Nonobstructing 3 mm calculus of the right kidney. There is no hydronephrosis, hydroureter, or ureterolithiasis. 4. Small fat-containing umbilical hernia. Electronically Signed: Flex Fox MD at 20:27 EDT , Service support ,
--- NOTE | 2019-02-19 19:37 | ED.VISSUMM ---
- ER Visit Summary Date of Service: 02/19/19 Chief Complaint: Flank pain History of Present Illness: The patient is a 38 F who states that this morning around 5 AM she began to have pain in the right flank radiating around towards the front of her abdomen. She states she has had this pain numerous times before with kidney stones. She does not have a urologist and has never had to have any surgery for her kidney stones. She last had to come to the emergency department in August of last year. She notes nausea and vomiting. Physical Examination: Afebrile vital signs are stable Gen: Well-nourished well-developed patient appears uncomfortable. Head: Normocephalic atraumatic Eyes: Perrl EOMI ENT: TMs clear no rhinorrhea moist mucous membranes Neck: Supple no lymphadenopathy no JVD nontender CVS: Regular rate rhythm no murmurs normal S1-S2 Respiratory: No distress clear to auscultation bilaterally chest nontender Abdomen: Soft nontender nondistended normal bowel sounds no masses Back: Mild right CVA tenderness Extremity: Nontender no edema Skin: Normal color no rash Neuro: alert orientated ?3 CN II-XII intact normal strength sensation Psych: Normal affect normal mood Test Results: CT of the pelvis did not demonstrate any acute pathology. CBC chemistries and urine negative. Emergency Department Course and Treatment: Patient received IV fluids, morphine and Zofran. She required a re-dosing of morphine. At this point I do not have a clear etiology for the patient's pain. It is possible that we are not seeing the stone when it is actually there. I will write her for pain medicine and nausea medicine. Follow-up with primary care return if worsening or concerns. Impression: 1. Right flank pain This note was generated with [employer] dictation software. It may contain incorrect words, spelling, and punctuation that were not noted in review of the chart prior to signing ED Disposition - Plan for ED Patient: Disposition: Home or Assisted Living Instructions: ED Flank Pain Uncertain Cause Prescriptions: Hydrocodone Bitart/Apap 5-325 [[place] 5MG-325MG] 1 tab PO Q6H PRN PRN 3 Days #12 tab PRN Reason: Pain Ondansetron [Zofran Odt] 4 mg PO Q6H PRN PRN #14 tab PRN Reason: Nausea Referrals: Marcelino Albert MD [Primary Care Provider] - 3-5 Days if not improving
--- NOTE | 2019-02-19 19:40 | ED.DCSUM_ITS ---
- ER Visit Summary Date of Service: 02/19/19 Chief Complaint: Flank pain History of Present Illness: The patient is a 38 F who states that this morning around 5 AM she began to have pain in the right flank radiating around towards the front of her abdomen. She states she has had this pain numerous times be fore with kidney stones. She does not have a urologist and has never had to have any surgery for her kidney stones. She last had to come to the emergency department in August of last year. She notes nausea and vomiting. Physical Examination: Afebrile vital signs are stable Gen: Well-nourished well-developed patient appears uncomfortable. Head: Normocephalic atraumatic Eyes: Perrl EOMI ENT: TMs clear no rhinorrhea moist mucous membranes Neck: Supple no lymphadenopathy no JVD nontender CVS: Regular rate rhythm no murmurs normal S1-S2 Respiratory: No distress clear to auscultation bilaterally chest nontender Abdomen: Soft nontender nondistended normal bowel sounds no masses Back: Mild right CVA tenderness Extremity: Nontender no edema Skin: Normal color no rash Neuro: alert orientated ?3 CN II-XII intact normal strength sensation Psych: Normal affect normal mood Test Results: CT of the pelvis did not demonstrate any acute pathology. CBC c hemistries and urine negative. Emergency Department Course and Treatment: Patient received IV fluids, morphine and Zofran. She required a re-dosing of morphine. At this point I do not have a clear etiology for the patient's pain. It is possible that we are not seeing the stone when it is actually there. I will write her for pain medicine and nausea medicine. Follow-up with primary care return if worsening or concerns. Impression: 1. Right flank pain This note was generated with [employer] dictation software. It may contain incorrect words, spelling, and punctuation that were not noted in review of the chart prior to signing ED Disposition - Plan for ED Patient: Disposition: Home or Assisted Living Instructions: ED Flank Pain Uncertain Cause Prescriptions: Hydrocodone Bitart/Apap 5-325 [[place] 5MG-325MG] 1 tab PO Q6H PRN PRN 3 Days #12 tab PRN Reason: Pain Ondansetron [Zofran Odt] 4 mg PO Q6H PRN PRN #14 tab PRN Reason: Nausea Referrals: Marcelino Albert MD [Primary Care Provider] - 3-5 Days if not improving
[2019-02-19] MEDS: Ondansetron 4 MG/2 ML Vial IV (19:46)
[2019-02-19] MEDS: Morphine 4 MG/ML Syringe IV (19:46)
[2019-02-19] MEDS: 0.9% Normal Saline 1,000 ML 250 ML IV (19:46)
[2019-02-19 19:55] LABS: Mucous, Urine 0 SEEN /hpf (<or=2+); Red Blood Cells-Urine 0 SEEN /hpf (0-5)
[2019-02-19 20:04] LABS: Absolute Lymphocyte Count 3.35 X10^3/ul (0.83-4.51); Basophil# 0.03 X10^3/uL; Basophil% 0.3 % (0-1); Eosinophil# 0.23 X10^3/uL; Eosinophils% 2.5 % (0-5); Hematocrit 37.1 % (37-47); Hemoglobin 12.2 g/dl (12.0-15.0); Lymphocyte # 3.35 X10^3/ul (4.0); Lymphocyte % 36.3 % (19-41); Mean Corp Hgb Conc 32.9 g/gl (32-36); Mean Corpuscular Hgb 30.5 pg (27.0-32.0); Mean Corpuscular Volume 92.8 fL (81-99); Mean Platelet Vol. 11.1 fl (6.2-12.0); Monocyte# 0.58 X10^3/uL; Monocyte% 6.3 % (0-10); Neutrophil # 5.01 X10^3/uL (2.7-7.7); Neutrophil % 54.2 % (47-70); Platelet Count 227 K/mm3 (150-450); RBC Distribution Width CV 12.2 % (11.6-14.6); RBC Distribution Width SD 41.8 fl (35.1-43.9); White Blood Count 9.2 K/mm3 (4.4-11.0)
[2019-02-19 20:09] LABS: POSITIVE COUNT NO; POSITIVE DIFFERENTIAL NO; POSITIVE MORPHOLOGY NO
[2019-02-19 20:13] LABS: Color, Urine Straw (Yellow); Glucose, Dipstick Normal (Normal); Ketone-Dipstick Negative (Negative); Leukocyte Esterase-Dipstick Negative /ul (Negative); Nitrite-Dipstick Negative (Negative); Occult Blood-Urine 10 /ul (Negative); Protein-Dipstick Negative (Negative); Urine Bilirubin Dipstick Negative (Negative); Urine Clarity Clear (Clear); Urine Urobilinogen Normal (Normal)
[2019-02-19 20:20] LABS: Anion Gap 7 (5-15); BUN 10 mg/dL (7-18); BUN/Creat Ratio 10.6 RATIO (10-20); Calcium,Total 8.9 mg/dL (8.5-10.1); Chloride 108 mmol/L (98-107); Creatinine, Serum 0.94 mg/dL (0.55-1.02); EST Glomerular Filtration Rate 70 mL/min (>60); Est Glom Filt Rate - Afr Amer 85 mL/min (>60); Estimated Creatinine Clearance 60.63 ml/min; Glucose 89 mg/dL (74-106); Potassium 3.6 mmol/L (3.5-5.1); Sodium Level 142 mmol/L (136-145)
[2019-02-19 20:44] LABS: Bacteria 2+ /hpf (None Seen); Squamous Epithelial Cells - UA 5-10 SEEN /hpf (5-10); White Blood Cells 0-5 SEEN /hpf (0-5)
[2019-02-19 21:10] LABS: AST(SGOT) 13 U/L (15-37); Alanine Aminotransfer ALT/SGPT 22 U/L (13-56); Albumin, Serum 3.7 g/dL (3.2-5.0); Alkaline Phosphatase 109 U/L (45-117); Bilirubin, Direct 0.06 mg/dL (0.00-0.30); Globulin 3.8 g/dL (2.2-4.2); Lipase 202 U/L (73-393); Protein, Total 7.5 g/dL (6.4-8.2)
[2019-02-19] MEDS: Morphine 2 MG/ML Syringe IV (21:38)
[2019-02-19 21:42] VITALS: BP 118/74; PULSE 82; RESP 16; O2SAT 98
[2019-02-19] MEDS: HYDROcodone Bitartrate/Apap 5/325 Tablet PO (22:03)
[2019-02-19 22:05] VITALS: BP 118/74; PULSE 82; RESP 16; O2SAT 98
== END 2019-02-19 22:09 | disposition home or self-care (01) ==
PROVIDERS: Emergency Provider Emergency Medicine; Family Provider Family Medicine; PCP Family Medicine
DX: R10.9 Unspecified abdominal pain (principal); R11.2 Nausea with vomiting, unspecified; Z72.0 Tobacco use; Z87.442 Personal history of urinary calculi; Z90.49 Acquired absence of other specified parts of digestive tract
CPT/HCPCS: 74176; 80048; 80076; 81001; 83690; 85025; 96361; 96374; 96375; 96376; 99285; J7030; J2405

== ENCOUNTER 2019-03-21 13:05 | Emergency (ER) | payer MEDICAID, SELFPAY ==
[2019-03-21 13:05] VITALS: BP 128/83; PULSE 74; RESP 16; TEMP 36.8; O2SAT 98; BMI 31.1
--- NOTE | 2019-03-21 13:14 | ED.VIS.GEN ---
History of Present Illness Chief Complaint: Flank Pain Informant: Patient Onset: Hours Context: Sudden Onset Timing: Continuous, Waxes and wanes Quality: Pain Location: Right flank radiating anteriorly Current Severity: Moderate Maximum Severity: Severe Worsened by: Nothing Relieved by: Nothing Associated Symptoms: Dysuria, frequency Narrative: Patient is a 38-year-old woman status post hysterectomy who presents with right flank pain that radiates anteriorly. She reports dysuria and frequency. Denies hematuria. She states she had a CAT scan several months ago. Old records were reviewed and she had a CAT scan February 19 which revealed a 3 mm nonobstructing renal calculus. August 31, 2018 she had an obstructing right ureteral stone with hydroureter and hydronephrosis. She denies fever, chills or night sweats. Does report nausea. Denies vomiting or diarrhea. She denies respiratory symptoms. There is no history of trauma. Prior similar symptoms: Yes Recent Illness/Hospitalization: Yes - Past Medical History (1) History of renal calculi Status: Acute (2) Ureteral stone with hydronephrosis Status: Acute Past Medical History - Allergies and Home Meds Allergies/Adverse Reactions: Allergies ketorolac tromethamine [From Toradol] Allergy (Verified 09/10/18 16:07) Rash Penicillins Allergy (Verified 09/10/18 16:07) Hives promethazine HCl [From Phenergan] Allergy (Verified 09/10/18 16:07) Hives aspirin Adverse Reaction (Verified 09/10/18 16:07) Upset Stomach CT DYE Allergy (Uncoded 09/10/18 16:07) Anaphylaxis IV contrast Allergy (Uncoded 09/10/18 16:07) Anaphylaxis Primary Care Physician: Marcelino Albert MD [Primary Care Provider] - Prior records reviewed: Yes - Read narrative Surgical History: cholecystectomy, hysterectomy Lives: With Family Smoking Status: Current every day smoker Drugs: None Review of Systems General: Denies: Chills, Fever, Sweats Eyes: Denies: Visual changes - bilaterally, Blurred Vision - bilaterally, Diplopia ENT: Denies: Rhinorrhea, Sore throat Cardiovascular: Denies: Chest pain, Palpitations Respiratory: Denies: Dyspnea, Cough, Dyspnea on exertion Gastrointestinal: Reports: Abdominal pain, Nausea. Denies: Vomiting, Diarrhea, Constipation, Melena, Hematochezia, -, - Genitourinary: Reports: Dysuria, Frequency. Denies: Hematuria Musculoskeletal: Reports: Back pain. Denies: Myalgias, Arthralgias, Neck pain, Swelling, Extremity Pain, -, - Skin: Denies: Rash, Wounds Neurological: Denies: Headache, Weakness, Numbness Hematologic: Denies: Easy bruising, Easy bleeding Allergy: Denies: Uticaria Physical Exam Vital Signs/Narrative: Vital Signs Temp Pulse Resp BP Pulse Ox 03/21/19 13:05 98.2 F 74 16 128/83 H 98 Inital Vital Signs reviewed: Yes General: Well nourished, Well developed, No Acute Distress Head: Normocephalic, Atraumatic Eyes: Perrl, EOMI ENT: Moist mucous membranes, No rhinorrhea Neck: Supple, Nontender Cardiovascular: Regular rate, Regular rhythm, No murmurs Respiratory: No distress, CTA bilaterally, Chest nontender Abdomen: Soft, Nontender, Nondistended, Normal bowel sounds Back: Nontender, Normal Inspection, CVA tenderness - On the right Extremities: Nontender, No edema Skin: Normal color, No rash, Trauma - Self induced secondary to picking and scratching Neurological: Alert, Oriented x3, Cranial nerves II-XII grossly intact, Normal Strength, Normal Sensation Psychological: Normal affect, Normal Mood Diagnostic/Tx/Re-eval Impressions Abdomen/Pelvis CT 03/21/19 14:00 IMPRESSION: No significant interval change. Electronically Signed: Tila Amador, at 15:36 EDT Tel , Service support , 03/21/19 14:00 Abdomen/Pelvis without Cont [CT] Stat Laboratory Results 03/21/19 03/21/19 03/21/19 13:10 13:25 13:25 WBC 6.6 RBC 4.14 L Hgb 12.4 Hct 38.2 MCV 92.3 MCH 30.0 MCHC 32.5 RDW 12.4 RDW Differential 40.5 Plt Count 205 MPV 10.8 Immature Gran % (Auto) 1.200 H Neut % (Auto) 54.2 Lymph % (Auto) 34.3 [place] % (Auto) 6.5 Eos % (Auto) 3.5 Baso % (Auto) 0.3 Absolute Neuts (auto) 3.6 Absolute Lymphs (auto) 2.28 Total Counted Not Reportable Sodium 137 Potassium 3.9 Chloride 108 H Carbon Dioxide 25.0 Anion Gap 4 L BUN 16 Creatinine 0.84 Estim Creat Clear Calc 67.85 Est GFR (MDRD) Af Amer 97 Est GFR (MDRD) Non-Af 80 BUN/Creatinine Ratio 19.1 Glucose 87 Calcium 8.8 Urine Color Yellow Urine Clarity Cloudy Urine pH 6.0 Ur Specific [place] 1.025 Urine Protein 15 H Urine Glucose (UA) Normal Urine Ketones Negative Urine Occult Blood 25 H Urine Nitrite Negative Urine Bilirubin Negative Urine Urobilinogen Normal Ur Leukocyte Esterase 25 H Urine RBC 0-5 SEEN Urine WBC 0-5 SEEN Ur Squamous Epith Cells 5-10 SEEN Urine Bacteria RARE Urine Mucus 1+ - Medical Decision Making With history of renal and ureteral calculus and CVA tenderness need to rule out urinary tract infection/pyelonephritis versus ureterolithiasis with obstruction versus infected obstructed stone. IV was established. She was medicated with IV morphine and IV Zofran since she lists allergy to Toradol and aspirin. ED Disposition - Plan for ED Patient: Disposition: Home or Assisted Living Diagnosis: Acute right flank pain, Renal calculus, right Instructions: FLANK PAIN, Uncertain Cause Referrals: Marcelino Albert MD [Primary Care Provider] - 3-5 Days if not improving
[2019-03-21 13:23] LABS: Color, Urine Yellow (Yellow); Glucose, Dipstick Normal (Normal); Ketone-Dipstick Negative (Negative); Leukocyte Esterase-Dipstick 25 /ul (Negative); Nitrite-Dipstick Negative (Negative); Occult Blood-Urine 25 /ul (Negative); Protein-Dipstick 15 mg/dl (Negative); Specific Gravity, Urine 1.025 (1.002-1.030); Urine Bilirubin Dipstick Negative (Negative); Urine Clarity Cloudy (Clear); Urine Urobilinogen Normal (Normal)
[2019-03-21 13:34] LABS: Absolute Lymphocyte Count 2.28 X10^3/ul (0.83-4.51); Absolute Neutrophil Count 3.6 X10^3/uL (2.0-7.7); Basophil# 0.02 X10^3/uL; Basophil% 0.3 % (0-1); Eosinophil# 0.23 X10^3/uL; Eosinophils% 3.5 % (0-5); Hematocrit 38.2 % (37-47); Hemoglobin 12.4 g/dl (12.0-15.0); Lymphocyte # 2.28 X10^3/ul (4.0); Lymphocyte % 34.3 % (19-41); Mean Corp Hgb Conc 32.5 g/gl (32-36); Mean Corpuscular Volume 92.3 fL (81-99); Mean Platelet Vol. 10.8 fl (6.2-12.0); Monocyte# 0.43 X10^3/uL; Monocyte% 6.5 % (0-10); Neutrophil % 54.2 % (47-70); Platelet Count 205 K/mm3 (150-450); RBC Distribution Width CV 12.4 % (11.6-14.6); RBC Distribution Width SD 40.5 fl (35.1-43.9); Red Blood Count 4.14 M/mm3 (4.2-5.4); White Blood Count 6.6 K/mm3 (4.4-11.0)
[2019-03-21 13:35] LABS: Bacteria RARE /hpf (None Seen); Mucous, Urine 1+ /hpf (<or=2+); Red Blood Cells-Urine 0-5 SEEN /hpf (0-5); Squamous Epithelial Cells - UA 5-10 SEEN /hpf (5-10); White Blood Cells 0-5 SEEN /hpf (0-5)
[2019-03-21 13:35] LABS: POSITIVE COUNT NO; POSITIVE DIFFERENTIAL NO; POSITIVE MORPHOLOGY NO
[2019-03-21] MEDS: Ondansetron 4 MG/2 ML Vial IV (13:37)
[2019-03-21] MEDS: 0.9% Normal Saline 1,000 ML 250 ML IV (13:37)
[2019-03-21] MEDS: Morphine 4 MG/ML Syringe IV (13:37)
[2019-03-21 13:47] LABS: Anion Gap 4 (5-15); BUN 16 mg/dL (7-18); BUN/Creat Ratio 19.1 RATIO (10-20); Calcium,Total 8.8 mg/dL (8.5-10.1); Chloride 108 mmol/L (98-107); Creatinine, Serum 0.84 mg/dL (0.55-1.02); EST Glomerular Filtration Rate 80 mL/min (>60); Est Glom Filt Rate - Afr Amer 97 mL/min (>60); Estimated Creatinine Clearance 67.85 ml/min; Glucose 87 mg/dL (74-106); Potassium 3.9 mmol/L (3.5-5.1); Sodium Level 137 mmol/L (136-145)
--- NOTE | 2019-03-21 14:00 | CT_ITS ---
STUDY: CT ABDOMEN AND PELVIS WITHOUT CONTRAST REASON FOR EXAM: Female, 38 years old. Right flank pain RADIATION DOSAGE (If Supplied By Facility): CTDIvol = ( 13.23 ) mGy, DLP = ( 649.15 ) mGycm TECHNIQUE: Transaxial images were obtained from the dome of the diaphragm to the symphysis pubis without oral contrast, and without intravenous contrast. Sagittal and coronal images were reconstructed. Individualized dose optimization techniques were used for this CT. COMPARISON: CT abdomen and pelvis 02/19/2019. FINDINGS: Lack of intravenous contrast limits evaluation of abdominal and pelvic organs. The visualized lung bases are unremarkable. The visualized portions of the heart are within normal limits. There are multiple hepatic cysts. There are surgical clips in the gallbladder fossa consistent with a prior cholecystectomy. Normal spleen. Normal pancreas. Normal bilateral adrenal glands. There is a nonobstructing, punctate bilateral renal lower pole stones, unchanged. Again seen is a 2 mm distal right ureteral stone, unchanged Normal left kidney. Normal visualized stomach. Normal small intestine. Normal colon. The appendix is visualized and appears normal. Normal abdominal aorta. Normal inferior vena cava. Normal retroperitoneum. Normal urinary bladder. Normal abdominal wall. Normal osseous structures. CT/Abdomen/Pelvis without Cont IMPRESSION: No significant interval change. Electronically Signed: Tila Amador, at 15:36 EDT Tel , Service support ,
[2019-03-21 15:38] VITALS: BP 119/76; PULSE 83; RESP 14; O2SAT 97
[2019-03-21 16:29] VITALS: BP 109/69; PULSE 71; RESP 16; O2SAT 98
== END 2019-03-21 16:30 | disposition home or self-care (01) ==
PROVIDERS: Emergency Provider Emergency Medicine; Family Provider Family Medicine; PCP Family Medicine
DX: R10.9 Unspecified abdominal pain (principal); N20.0 Calculus of kidney; F17.200 Nicotine dependence, unspecified, uncomplicated; Z88.0 Allergy status to penicillin; Z87.442 Personal history of urinary calculi
CPT/HCPCS: 74176; 80048; 81001; 85025; 99283; J2405

== ENCOUNTER 2019-03-29 17:59 | Emergency (ER) | payer MEDICAID, SELFPAY ==
[2019-03-29 18:00] VITALS: BP 115/75; PULSE 77; RESP 16; TEMP 36.7; O2SAT 98; BMI 34.8
[2019-03-29 18:20] VITALS: BP 115/75; PULSE 77; RESP 18; TEMP 36.7; O2SAT 98
[2019-03-29 19:21] LABS: Mucous, Urine 0 SEEN /hpf (<or=2+)
[2019-03-29 19:47] LABS: Color, Urine Yellow (Yellow); Glucose, Dipstick Normal (Normal); Ketone-Dipstick Negative (Negative); Leukocyte Esterase-Dipstick 25 /ul (Negative); Nitrite-Dipstick Negative (Negative); Occult Blood-Urine 50 /ul (Negative); Protein-Dipstick Negative (Negative); Specific Gravity, Urine 1.025 (1.002-1.030); Urine Bilirubin Dipstick Negative (Negative); Urine Clarity Cloudy (Clear); Urine Urobilinogen 1 mg/dl (Normal)
[2019-03-29] MEDS: Morphine 4 MG/ML Syringe IV (19:50)
[2019-03-29] MEDS: 0.9% Normal Saline 1,000 ML 150 ML IV (19:50)
[2019-03-29] MEDS: Ondansetron 4 MG/2 ML Vial IV (19:50)
[2019-03-29 19:53] LABS: Squamous Epithelial Cells - UA 10-25 SEEN /hpf (5-10)
[2019-03-29 19:54] LABS: Bacteria 4+ /hpf (None Seen); Red Blood Cells-Urine 0-5 SEEN /hpf (0-5); White Blood Cells 0-5 SEEN /hpf (0-5)
[2019-03-29 19:56] VITALS: BP 121/79; PULSE 60; RESP 16; O2SAT 100
[2019-03-29 20:12] LABS: Absolute Lymphocyte Count 2.81 X10^3/uL (0.83-4.51); Absolute Neutrophil Count 6.6 X10^3/uL (2.0-7.7); Basophil# 0.05 X10^3/uL; Basophil% 0.5 % (0-1); Eosinophil# 0.22 X10^3/uL; Eosinophils% 2.2 % (0-5); Hematocrit 37.3 % (37-47); Hemoglobin 11.8 g/dL (12.0-15.0); Lymphocyte # 2.81 X10^3/ul (4.0); Lymphocyte % 27.6 % (19-41); Mean Corp Hgb Conc 31.6 g/dL (32-36); Mean Corpuscular Hgb 30.2 pg (27.0-32.0); Mean Corpuscular Volume 95.4 fL (81-99); Mean Platelet Vol. 10.8 fl (6.2-12.0); Monocyte# 0.49 X10^3/uL; Monocyte% 4.8 % (0-10); NRBC Flagged by Analyzer 0 % (0-5); Neutrophil # 6.56 X10^3/uL (2.7-7.7); Neutrophil % 64.3 % (47-70); Platelet Count 230 K/mm3 (150-450); RBC Distribution Width CV 12.3 % (11.6-14.6); RBC Distribution Width SD 42.5 fl (35.1-43.9); Red Blood Count 3.91 M/mm3 (4.2-5.4); White Blood Count 10.2 K/mm3 (4.4-11.0)
[2019-03-29 20:16] LABS: Anion Gap 4 (5-15); BUN 15 mg/dL (7-18); BUN/Creat Ratio 16.2 RATIO (10-20); Calcium,Total 8.6 mg/dL (8.5-10.1); Chloride 110 mmol/L (98-107); Creatinine, Serum 0.93 mg/dL (0.55-1.02); EST Glomerular Filtration Rate 72 mL/min (>60); Est Glom Filt Rate - Afr Amer 87 mL/min (>60); Estimated Creatinine Clearance 61.28 ml/min; Glucose 90 mg/dL (74-106); Potassium 3.7 mmol/L (3.5-5.1); Sodium Level 141 mmol/L (136-145)
--- NOTE | 2019-03-29 21:00 | CT_ITS ---
STUDY: CT ABDOMEN AND PELVIS WITHOUT CONTRAST REASON FOR EXAM: Female, 38 years old. Pain RADIATION DOSAGE (If Supplied By Facility): DLP = ( 558.09 ) mGycm TECHNIQUE: Transaxial images were obtained from the dome of the diaphragm to the symphysis pubis without oral contrast, and without intravenous contrast. Sagittal and coronal images were reconstructed. Individualized dose optimization techniques were used for this CT. COMPARISON: CT abdomen pelvis March 21, 2019 FINDINGS: Evaluation of the abdominal viscera is limited in the absence of intravenous contrast. The visualized lung bases are clear. The visualized portions of the heart and pericardium are within normal limits. The gallbladder is been removed. Multiple hepatic cysts are present measuring up to 8.2 cm. No suspicious hepatic lesions are present. The spleen is normal in size. The pancreas demonstrates an unremarkable unenhanced appearance. The adrenal glands are within normal limits. There are no obstructing renal stones. There is a right renal lower pole nonobstructing 3 mm stone. There is no hydronephrosis. Normal visualized stomach. There is no bowel obstruction or inflammation. Post hysterectomy changes are present. The aorta is normal in caliber. There is no abdominal or pelvic free air, free fluid, fluid collection or lymphadenopathy. There are no destructive osseous lesions. CT/Abdomen/Pelvis without Cont IMPRESSION: No acute abdominal or pelvic pathology demonstrated on this noncontrast CT. Right renal lower pole nonobstructing 3 mm stone. Hepatic cysts. Electronically Signed: Marcelino Fernando, at 21:46 EDT Tel , Service support ,
--- NOTE | 2019-03-29 22:08 | ED.VIS.GEN ---
History of Present Illness Chief Complaint: Flank Pain Detail of Chief Complaint: Right flank pain Onset: - - 1-1/2 weeks Context: Gradual Onset Timing: Waxes and wanes Quality: Throbbing and aching Location: Right flank with some radiation to abdomen and down toward right buttock an Current Severity: Moderate Maximum Severity: Moderate Narrative: Patient presents with continued right flank pain. She was seen on March 21 with similar. She states her pain never really got better after that visit. She has had some mild dysuria but no obvious hematuria. She does report nausea. She is been taking Tylenol [id number] for pain. She does have a history of renal stones and on March [address] scan that showed a small stone in the right kidney as well as a 2 mm distal right ureteral stone that was unchanged when compared to prior study. - Past Medical History (1) High cholesterol Status: Acute (2) History of renal calculi Status: Acute Past Medical History - Allergies and Home Meds Allergies/Adverse Reactions: Allergies ketorolac tromethamine [From Toradol] Allergy (Verified 03/29/19 18:02) Rash Penicillins Allergy (Verified 03/29/19 18:02) Hives promethazine HCl [From Phenergan] Allergy (Verified 03/29/19 18:02) Hives aspirin Adverse Reaction (Verified 03/29/19 18:02) Upset Stomach CT DYE Allergy (Uncoded 03/29/19 18:02) Anaphylaxis IV contrast Allergy (Uncoded 03/29/19 18:02) Anaphylaxis Primary Care Physician: Marcelino Albert MD [Primary Care Provider] - Keep Lydia appointment Past Medical History: - - Reviewed Surgical History: cholecystectomy, hysterectomy Smoking Status: Current every day smoker Review of Systems General: Denies: Chills, Fever Cardiovascular: Denies: Chest pain, Palpitations, Heart racing Respiratory: Denies: Dyspnea, Cough Gastrointestinal: Reports: Abdominal pain, Nausea, - - Right flank pain. Denies: Vomiting Genitourinary: Reports: Dysuria. Denies: Hematuria Physical Exam Vital Signs/Narrative: Vital Signs Temp Pulse Resp BP Pulse Ox 03/29/19 19:56 60 16 121/79 H 100 03/29/19 18:20 98.1 F 77 18 115/75 98 Inital Vital Signs reviewed: Yes General: Well nourished, Well developed Eyes: Perrl ENT: Moist mucous membranes Cardiovascular: Regular rate, Regular rhythm Respiratory: No distress, CTA bilaterally Abdomen: Soft, Nontender, Normal bowel sounds Back: CVA tenderness Extremities: Nontender Skin: Normal color Neurological: Alert, Oriented x3 Diagnostic/Tx/Re-eval Impressions Abdomen/Pelvis CT 03/29/19 21:00 IMPRESSION: No acute abdominal or pelvic pathology demonstrated on this noncontrast CT. Right renal lower pole nonobstructing 3 mm stone. Hepatic cysts. Electronically Signed: Marcelino Fernando, at 21:46 EDT Tel , Service support , 03/29/19 21:00 Abdomen/Pelvis without Cont [CT] Stat Laboratory Results 03/29/19 03/29/19 03/29/19 18:25 19:55 19:55 WBC 10.2 RBC 3.91 L Hgb 11.8 L Hct 37.3 MCV 95.4 MCH 30.2 MCHC 31.6 L RDW Std Deviation 42.5 RDW Coeff of Shun 12.3 Plt Count 230 MPV 10.8 Immature Gran % (Auto) 0.600 Neut % (Auto) 64.3 Lymph % (Auto) 27.6 [place] % (Auto) 4.8 Eos % (Auto) 2.2 Baso % (Auto) 0.5 Absolute Neuts (auto) 6.6 Absolute Lymphs (auto) 2.81 Absolute Nucleated RBC 0.00 Nucleated RBC % 0 Sodium 141 Potassium 3.7 Chloride 110 H Carbon Dioxide 27.0 Anion Gap 4 L BUN 15 Creatinine 0.93 Estim Creat Clear Calc 61.28 Est GFR (MDRD) Af Amer 87 Est GFR (MDRD) Non-Af 72 BUN/Creatinine Ratio 16.2 Glucose 90 Calcium 8.6 Urine Color Yellow Urine Clarity Cloudy Urine pH 5.0 Ur Specific [place] 1.025 Urine Protein Negative Urine Glucose (UA) Normal Urine Ketones Negative Urine Occult Blood 50 H Urine Nitrite Negative Urine Bilirubin Negative Urine Urobilinogen 1 H Ur Leukocyte Esterase 25 H Urine RBC 0-5 SEEN Urine WBC 0-5 SEEN Ur Squamous Epith Cells 10-25 SEEN Urine Bacteria 4+ Urine Mucus 0 SEEN - Medical Decision Making Patient was given morphine and Zofran for pain and nausea. On repeat evaluation she reported continued pain. I initially had wanted to avoid repeat CT scan, but with continued pain repeat imaging was performed. The 2 mm stone in the distal right ureter that was previously noted has now resolved. There is no evidence of hydronephrosis or acute change in the kidneys at this time. Patient be treated with a short course of [place]. Her last prescription for narcotics was 1 month ago. Patient has a follow-up ointment scheduled with her PCP next week. ED Disposition - Plan for ED Patient: Disposition: Home or Assisted Living Diagnosis: Right flank pain Instructions: FLANK PAIN, Uncertain Cause Prescriptions: Hydrocodone Bitart/Apap 5-325 [[place] 5MG-325MG] 1 tab PO Q6H PRN PRN 3 Days #10 tab PRN Reason: Pain Prescription Printed Referrals: Marcelino Albert MD [Primary Care Provider] - Keep Lydia appointment
[2019-03-29 22:28] VITALS: BP 96/48; PULSE 65; PULSE 68; RESP 14; O2SAT 98
[2019-03-29] MEDS: HYDROcodone Bitartrate/Apap 5/325 Tablet PO (22:31)
== END 2019-03-29 22:35 | disposition home or self-care (01) ==
PROVIDERS: Emergency Provider Emergency Medicine; Family Provider Family Medicine; PCP Family Medicine
DX: R10.9 Unspecified abdominal pain (principal); R30.0 Dysuria; R11.0 Nausea; N20.0 Calculus of kidney; K76.89 Other specified diseases of liver; Z87.442 Personal history of urinary calculi; Z90.49 Acquired absence of other specified parts of digestive tract; F17.200 Nicotine dependence, unspecified, uncomplicated
CPT/HCPCS: 74176; 80048; 81001; 85025; 96361; 96374; 96375; 99285; J7030; A4216; J2405

== ENCOUNTER 2019-04-18 13:43 | Emergency (ER) | payer MEDICAID, SELFPAY ==
[2019-04-18 13:45] VITALS: BP 115/57; PULSE 82; RESP 18; TEMP 36.7; O2SAT 99; BMI 35.5
--- NOTE | 2019-04-18 15:28 | ED.VIS.GEN ---
History of Present Illness Chief Complaint: Flank Pain Detail of Chief Complaint: Flank pain Informant: Patient Onset: Yesterday Current Severity: Moderate Maximum Severity: Moderate Narrative: Patient presents with recurrent right flank pain that started yesterday. She was seen in the ER twice last month for similar. On the first CT a month ago she had a 2 mm right distal ureteral stone. It had passed on the second scan but she still had a 3 mm stone in the inferior pole of the right kidney. Patient states that her pain had been doing well until yesterday when it recurred. She states pain worsened today after urinating and she had nausea and vomiting. She has not had fever or chills. She is scheduled to see a urologist in [place] in 1 week. Patient has had prior hysterectomy and ovaries have been removed. She did take Tylenol earlier today. Past Medical History - Allergies and Home Meds Allergies/Adverse Reactions: Allergies ketorolac tromethamine [From Toradol] Allergy (Verified 03/29/19 18:02) Rash Penicillins Allergy (Verified 03/29/19 18:02) Hives promethazine HCl [From Phenergan] Allergy (Verified 03/29/19 18:02) Hives aspirin Adverse Reaction (Verified 03/29/19 18:02) Upset Stomach CT DYE Allergy (Uncoded 03/29/19 18:02) Anaphylaxis IV contrast Allergy (Uncoded 03/29/19 18:02) Anaphylaxis Primary Care Physician: Marcelino Albert MD [Primary Care Provider] - Prior records reviewed: Yes Past Medical History: - - Reviewed Surgical History: cholecystectomy, hysterectomy Smoking Status: Current every day smoker Review of Systems General: Denies: Chills, Fever Eyes: Denies: Visual changes - bilaterally ENT: Denies: Bilateral ear pain Cardiovascular: Denies: Chest pain, Palpitations Respiratory: Denies: Dyspnea, Cough Gastrointestinal: Reports: Abdominal pain - Right flank pain, Nausea, Vomiting Genitourinary: Reports: Dysuria. Denies: Hematuria Neurological: Denies: Headache Endocrine: Denies: Polyuria, Polydipsia Hematologic: Denies: Easy bruising Allergy: Denies: Uticaria Physical Exam Vital Signs/Narrative: Vital Signs Temp Pulse Resp BP Pulse Ox 04/18/19 13:45 98.1 F 82 18 115/57 L 99 Inital Vital Signs reviewed: Yes General: Well nourished, Well developed Head: Normocephalic ENT: Moist mucous membranes Neck: Supple Cardiovascular: Regular rate, Regular rhythm Respiratory: No distress, CTA bilaterally Abdomen: Soft, Normal bowel sounds, Tender - Right upper quadrant tenderness palpation.. Negative for: Guarding, Rebound tenderness Back: CVA tenderness - Right CVA tenderness Extremities: Nontender Skin: Normal color Neurological: Alert, Oriented x3 Psychological: Normal affect Diagnostic/Tx/Re-eval Laboratory Results 04/18/19 04/18/19 04/18/19 14:35 14:40 14:40 WBC 10.1 RBC 4.18 L Hgb 13.0 Hct 39.2 MCV 93.8 MCH 31.1 MCHC 33.2 RDW Std Deviation 41.9 RDW Coeff of Shun 12.2 Plt Count 227 MPV 11.3 Immature Gran % (Auto) 0.900 Neut % (Auto) 63.9 Lymph % (Auto) 25.2 [place] % (Auto) 6.7 Eos % (Auto) 2.9 Baso % (Auto) 0.4 Absolute Neuts (auto) 6.5 Absolute Lymphs (auto) 2.55 Nucleated RBC % 0 Sodium 139 Potassium 3.5 Chloride 105 Carbon Dioxide 29.0 Anion Gap 5 BUN 12 Creatinine 0.99 Estim Creat Clear Calc 57.57 Est GFR (MDRD) Af Amer 80 Est GFR (MDRD) Non-Af 66 BUN/Creatinine Ratio 12.1 Glucose 91 Calcium 9.2 Total Bilirubin 0.70 Direct Bilirubin 0.11 AST 11 L ALT 20 Alkaline Phosphatase 117 Total Protein 8.2 Albumin 4.0 Globulin 4.2 Urine Color Straw Urine Clarity Clear Urine pH 6.5 Ur Specific [place] 1.005 Urine Protein Negative Urine Glucose (UA) Normal Urine Ketones Negative Urine Occult Blood 10 H Urine Nitrite Negative Urine Bilirubin Negative Urine Urobilinogen Normal Ur Leukocyte Esterase 25 H Urine RBC 0 SEEN Urine WBC 0-5 SEEN Ur Squamous Epith Cells 0-5 SEEN Amorphous Sediment 1+ Urine Bacteria RARE Urine Mucus 0 SEEN - Medical Decision Making Patient was given morphine and Zofran for pain. She has an allergy to ibuprofen and Toradol. Test results were discussed with the patient. She had 2 CT scans a month ago I do not feel that repeat imaging is needed. She is a 3 mm stone in the inferior pole the right kidney at that time. Even if she is passing that stone at this time she should be able to pass it with analgesics. She will be given a prescription for [place] and Zofran at home. She will follow-up with her urologist as scheduled. ED Disposition - Plan for ED Patient: Disposition: Home or Assisted Living Diagnosis: Right flank pain Instructions: FLANK PAIN, Uncertain Cause Prescriptions: Hydrocodone Bitart/Apap 5-325 [[place] 5MG-325MG] 1 tablet PO Q6H PRN PRN 3 Days #10 tablet PRN Reason: Pain Ondansetron [Zofran Odt] 4 mg PO Q8H PRN PRN #10 tablet PRN Reason: Nausea Referrals: Marcelino Albert MD [Primary Care Provider] - Additional Instructions: FOllow-up with your urologist next week as scheduled.
[2019-04-18] MEDS: Ondansetron 4 MG/2 ML Vial IV (15:33)
[2019-04-18] MEDS: Morphine 4 MG/ML Syringe IV (15:33)
[2019-04-18] MEDS: 0.9% Normal Saline 1,000 ML 1000 ML IV (15:33)
[2019-04-18 15:37] LABS: Mucous, Urine 0 SEEN /hpf (<or=2+); Red Blood Cells-Urine 0 SEEN /hpf (0-5)
[2019-04-18 15:38] LABS: Absolute Lymphocyte Count 2.55 X10^3/uL (0.83-4.51); Absolute Neutrophil Count 6.5 X10^3/uL (2.0-7.7); Basophil# 0.04 X10^3/uL; Basophil% 0.4 % (0-1); Eosinophil# 0.29 X10^3/uL; Eosinophils% 2.9 % (0-5); Hematocrit 39.2 % (37-47); Lymphocyte # 2.55 X10^3/ul (4.0); Lymphocyte % 25.2 % (19-41); Mean Corp Hgb Conc 33.2 g/dL (32-36); Mean Corpuscular Hgb 31.1 pg (27.0-32.0); Mean Corpuscular Volume 93.8 fL (81-99); Mean Platelet Vol. 11.3 fl (6.2-12.0); Monocyte# 0.68 X10^3/uL; Monocyte% 6.7 % (0-10); NRBC Flagged by Analyzer 0 % (0-5); Neutrophil # 6.48 X10^3/uL (2.7-7.7); Neutrophil % 63.9 % (47-70); Platelet Count 227 K/mm3 (150-450); RBC Distribution Width CV 12.2 % (11.6-14.6); RBC Distribution Width SD 41.9 fl (35.1-43.9); Red Blood Count 4.18 M/mm3 (4.2-5.4); White Blood Count 10.1 K/mm3 (4.4-11.0)
[2019-04-18 15:39] VITALS: BP 109/58; RESP 18
[2019-04-18 15:40] LABS: Color, Urine Straw (Yellow); Glucose, Dipstick Normal (Normal); Ketone-Dipstick Negative (Negative); Leukocyte Esterase-Dipstick 25 /ul (Negative); Nitrite-Dipstick Negative (Negative); Occult Blood-Urine 10 /ul (Negative); Protein-Dipstick Negative (Negative); Specific Gravity, Urine 1.005 (1.002-1.030); Urine Bilirubin Dipstick Negative (Negative); Urine Clarity Clear (Clear); Urine Urobilinogen Normal (Normal); Urine pH 6.5 (5.0 - 8.0)
[2019-04-18 15:48] LABS: Amorphous Sediment 1+; Bacteria RARE /hpf (None Seen); Squamous Epithelial Cells - UA 0-5 SEEN /hpf (5-10); White Blood Cells 0-5 SEEN /hpf (0-5)
[2019-04-18 15:53] LABS: AST(SGOT) 11 U/L (15-37); Alanine Aminotransfer ALT/SGPT 20 U/L (13-56); Alkaline Phosphatase 117 U/L (45-117); Anion Gap 5 (5-15); BUN 12 mg/dL (7-18); BUN/Creat Ratio 12.1 RATIO (10-20); Bilirubin, Direct 0.11 mg/dL (0.00-0.30); Calcium,Total 9.2 mg/dL (8.5-10.1); Chloride 105 mmol/L (98-107); Creatinine, Serum 0.99 mg/dL (0.55-1.02); EST Glomerular Filtration Rate 66 mL/min (>60); Est Glom Filt Rate - Afr Amer 80 mL/min (>60); Estimated Creatinine Clearance 57.57 ml/min; Globulin 4.2 g/dL (2.2-4.2); Glucose 91 mg/dL (74-106); Potassium 3.5 mmol/L (3.5-5.1); Protein, Total 8.2 g/dL (6.4-8.2); Sodium Level 139 mmol/L (136-145)
[2019-04-18 16:30] VITALS: BP 121/83; RESP 18
== END 2019-04-18 16:34 | disposition home or self-care (01) ==
PROVIDERS: Emergency Provider Emergency Medicine; Family Provider Family Medicine; PCP Family Medicine
DX: R10.9 Unspecified abdominal pain (principal); F17.200 Nicotine dependence, unspecified, uncomplicated; Z88.6 Allergy status to analgesic agent; Z90.49 Acquired absence of other specified parts of digestive tract; Z90.710 Acquired absence of both cervix and uterus; Z88.0 Allergy status to penicillin; Z87.442 Personal history of urinary calculi
CPT/HCPCS: 80048; 80076; 81001; 85025; 96361; 96374; 96375; 99285; J7030; A4216; J2405

== ENCOUNTER 2019-04-28 17:24 | Emergency (ER) | payer MEDICAID, SELFPAY ==
[2019-04-28 17:25] VITALS: BP 105/64; PULSE 85; RESP 18; TEMP 36.7; O2SAT 98; BMI 35.3
--- NOTE | 2019-04-28 17:50 | US_ITS ---
STUDY: RENAL ULTRASOUND - COMPLETE REASON FOR EXAM: Female, 38 years old. Severe flank pain x2 hours TECHNIQUE: Ultrasound evaluation of the kidneys was performed with real-time and static jung-scale imaging. COMPARISON: None. FINDINGS: RIGHT KIDNEY: Normal location of the right kidney, which is normal in size. The right kidney measures 10.7 x 4.1 x 4.0 cm. There is diffuse thinning of the renal cortex. The renal cortex measures 0.8 cm. There is no right renal mass or cyst. There is a nonobstructing 0.5 cm stone. There is no right hydronephrosis. DISTAL RIGHT URETER: There is non-visualization of the distal right ureter. There is no demonstrated right ureterovesical junction calculus. There is a visualized right ureteral jet. LEFT KIDNEY: Normal location of the left kidney, which is normal in size. The left kidney measures 10.8 x 4.3 x 5.2 cm. There is a normal cortex of the left kidney. The renal cortex measures 1.8 cm. There is no left renal mass or cyst. There is a nonobstructing 0.8 cm stone. There is no left hydronephrosis. DISTAL LEFT URETER: There is non-visualization of the distal left ureter. There is no demonstrated left ureterovesical junction calculus. There is a visualized left ureteral jet. AORTA: There is no elongation or tortuosity of the abdominal aorta. I.V.C.: The IVC is patent. BLADDER: The bladder is sonographically normal US/Kidney and Bladder IMPRESSION: No hydronephrosis or suspicious solid lesion. Bilateral nonobstructing nephrolithiasis Cortical thinning in the right kidney of uncertain etiology Electronically Signed: Flavio Calles MD at 18:34 EDT , Service support ,
[2019-04-28 18:02] LABS: Absolute Lymphocyte Count 2.44 X10^3/uL (0.83-4.51); Absolute Neutrophil Count 7.3 X10^3/uL (2.0-7.7); Basophil# 0.04 X10^3/uL; Basophil% 0.4 % (0-1); Eosinophil# 0.25 X10^3/uL; Eosinophils% 2.4 % (0-5); Hematocrit 34.8 % (37-47); Hemoglobin 11.3 g/dL (12.0-15.0); Lymphocyte # 2.44 X10^3/ul (4.0); Mean Corp Hgb Conc 32.5 g/dL (32-36); Mean Corpuscular Hgb 30.5 pg (27.0-32.0); Mean Corpuscular Volume 93.8 fL (81-99); Mean Platelet Vol. 11.2 fl (6.2-12.0); Monocyte# 0.55 X10^3/uL; Monocyte% 5.2 % (0-10); NRBC Flagged by Analyzer 0 % (0-5); Neutrophil # 7.29 X10^3/uL (2.7-7.7); Neutrophil % 68.5 % (47-70); Platelet Count 206 K/mm3 (150-450); RBC Distribution Width CV 12.6 % (11.6-14.6); RBC Distribution Width SD 43.4 fl (35.1-43.9); Red Blood Count 3.71 M/mm3 (4.2-5.4); White Blood Count 10.6 K/mm3 (4.4-11.0)
[2019-04-28 18:13] LABS: ALB/GLOB Ratio 1.2 RATIO (0.9-2.4); AST(SGOT) 55 U/L (15-37); Alanine Aminotransfer ALT/SGPT 72 U/L (13-56); Albumin, Serum 3.8 g/dL (3.2-5.0); Alkaline Phosphatase 90 U/L (45-117); Anion Gap 4 (5-15); BUN 10 mg/dL (7-18); BUN/Creat Ratio 10.5 RATIO (10-20); Calcium,Total 9.3 mg/dL (8.5-10.1); Chloride 109 mmol/L (98-107); Creatinine, Serum 0.95 mg/dL (0.55-1.02); EST Glomerular Filtration Rate 69 mL/min (>60); Est Glom Filt Rate - Afr Amer 84 mL/min (>60); Estimated Creatinine Clearance 59.99 ml/min; Globulin 3.2 g/dL (2.2-4.2); Glucose 101 mg/dL (74-106); Lipase 234 U/L (73-393); Potassium 3.7 mmol/L (3.5-5.1); Sodium Level 141 mmol/L (136-145)
[2019-04-28 18:35] LABS: Bacteria 0 SEEN /hpf (None Seen); Mucous, Urine 0 SEEN /hpf (<or=2+)
[2019-04-28 18:39] LABS: Color, Urine Yellow (Yellow); Glucose, Dipstick Normal (Normal); Ketone-Dipstick Negative (Negative); Leukocyte Esterase-Dipstick 25 /ul (Negative); Nitrite-Dipstick Negative (Negative); Occult Blood-Urine 10 /ul (Negative); Protein-Dipstick Negative (Negative); Specific Gravity, Urine 1.005 (1.002-1.030); Urine Bilirubin Dipstick Negative (Negative); Urine Clarity Clear (Clear); Urine Urobilinogen Normal (Normal); Urine pH 6.5 (5.0 - 8.0)
[2019-04-28] MEDS: Acetaminophen 500 MG Tablet 1000 MG PO (18:39)
--- NOTE | 2019-04-28 18:40 | ED.RN ---
pt states she received zofran from [facility] an I'm ok.
[2019-04-28 18:50] LABS: Red Blood Cells-Urine 0-5 SEEN /hpf (0-5); Squamous Epithelial Cells - UA 0-5 SEEN /hpf (5-10); White Blood Cells 0-5 SEEN /hpf (0-5)
--- NOTE | 2019-04-28 18:54 | ED.VIS.GI ---
History of Present Illness Chief Complaint: Abd Pain Narrative: Patient presenting for evaluation secondary to abdominal pain and flank pain. Patient has a history of having kidney stones in the past. Patient reports that she had a sudden onset of left-sided flank and left-sided abdominal pain today. She reports that it is a sharp waxing and waning type pain somewhat worse with palpation associated with some nausea with no vomiting. Patient denies any diarrhea. She denies any dysuria or hematuria. Patient has had a history of frequent kidney stones in the past with multiple CT scans. Review of systems otherwise negative. Past Medical History - Allergies and Home Meds Allergies/Adverse Reactions: Allergies ketorolac tromethamine [From Toradol] Allergy (Verified 04/28/19 17:25) Rash Penicillins Allergy (Verified 04/28/19 17:25) Hives promethazine HCl [From Phenergan] Allergy (Verified 04/28/19 17:25) Hives aspirin Adverse Reaction (Verified 04/28/19 17:25) Upset Stomach CT DYE Allergy (Uncoded 04/28/19 17:25) Anaphylaxis IV contrast Allergy (Uncoded 04/28/19 17:25) Anaphylaxis Primary Care Physician: Marcelino Albert MD [Primary Care Provider] - Past Medical History: - - Kidney stones Surgical History: cholecystectomy, hysterectomy Smoking Status: Current every day smoker Alcohol: None Drugs: None Review of Systems All systems negative except as indicated General: Denies: Fever Gastrointestinal: Reports: Abdominal pain, Nausea. Denies: Vomiting Genitourinary: Denies: Dysuria, Hematuria Physical Exam Vital Signs/Narrative: Vital Signs Temp Pulse Resp BP Pulse Ox 04/28/19 17:25 98.1 F 85 18 105/64 98 Inital Vital Signs reviewed: Yes General: Well nourished, Well developed, No Acute Distress - Patient sitting comfortably in the bed Head: Normocephalic, Atraumatic Eyes: Perrl, EOMI ENT: Moist mucous membranes, No rhinorrhea Neck: Supple, Nontender Cardiovascular: Regular rate, Regular rhythm, No murmurs Respiratory: No distress, CTA bilaterally, Chest nontender Abdomen: Soft, Tender - Patient complains of left upper quadrant abdominal pain with no guarding or rebound tenderness Back: Nontender, Normal Inspection Extremities: Nontender, No edema Skin: Normal color, No rash Neurological: Alert, Oriented x3, Cranial nerves II-XII grossly intact, Normal Strength, Normal Sensation Psychological: Normal affect, Normal Mood Diagnostic/Tx/Re-eval - Medical Decision Making Patient presented secondary to abdominal pain and flank pain. I reviewed the patient's records and she has 18 visits for abdominal pain or flank pain with a total of 16 CT scans. Patient has also allergies to any much all nonnarcotic medications that would be used to treat kidney stones. Patient was offered Zofran fluids and Bentyl which she refused. She was offered Tylenol which she refused. CBC chemistry and urinalysis were negative. Ultrasound shows no evidence of hydronephrosis and does show some nonobstructing stones in the patient's kidneys bilaterally. Patient's vital signs are stable. I do not feel at this point that the patient requires further imaging or work-up. There is the possibility that the patient may have passed a kidney stone, patient was given a single dose of [place] in the emergency department for further pain control. She was recommended [id number] remedies at home. Patient was discharged with reassurance. Disposition: Home ED Disposition - Plan for ED Patient: Disposition: Home or Assisted Living Diagnosis: Flank pain Instructions: FLANK PAIN, Uncertain Cause Referrals: Marcelino Albert MD [Primary Care Provider] - As Needed
[2019-04-28 19:53] VITALS: BP 117/79; PULSE 69; PULSE 70; RESP 18; O2SAT 97; O2SAT 98
[2019-04-28] MEDS: HYDROcodone Bitartrate/Apap 5/325 Tablet PO (19:53)
== END 2019-04-28 19:56 | disposition home or self-care (01) ==
PROVIDERS: Emergency Provider Emergency Medicine; Family Provider Family Medicine; PCP Family Medicine
DX: R10.12 Left upper quadrant pain (principal); Z87.442 Personal history of urinary calculi; F17.200 Nicotine dependence, unspecified, uncomplicated; Z90.49 Acquired absence of other specified parts of digestive tract; Z90.710 Acquired absence of both cervix and uterus; Z88.0 Allergy status to penicillin; Z88.6 Allergy status to analgesic agent; Z88.8 Allergy status to other drugs, medicaments and biological substances
CPT/HCPCS: 76770; 80053; 81001; 83690; 85025; 96372; 96374; 99285; A4216; J2405

== ENCOUNTER 2019-05-26 17:26 | Emergency (ER) | payer MEDICAID, SELFPAY ==
[2019-05-26 17:27] VITALS: BP 121/67; PULSE 82; RESP 20; TEMP 36.4; O2SAT 97; BMI 35.9
--- NOTE | 2019-05-26 17:37 | ED.VIS.GEN ---
History of Present Illness Chief Complaint: Abd Pain Detail of Chief Complaint: Right upper abdominal pain Informant: Patient Onset: Today Context: Sudden Onset Timing: Continuous Quality: Pain right anterior upper abdominal pain Location: Right upper Current Severity: Moderate Maximum Severity: Severe Worsened by: Movement, twisting and palpation Relieved by: Nothing Associated Symptoms: Nausea Narrative: Patient is a 38-year-old woman who has history of nonobstructing bilateral renal calculi. She reports acute abdominal pain. She denies intolerance to greasy or fried foods. She denies vomiting or diarrhea. Denies black or maroon stool. She denies dysuria, frequency, urgency or hematuria. She was seen on April 28 and had an ultrasound which revealed nonobstructing renal calculi. There was no evidence of hydronephrosis or hydroureter. Patient's presentation is similar. Prior similar symptoms: Yes Recent Illness/Hospitalization: Yes - Past Medical History (1) High cholesterol Status: Acute (2) History of renal calculi Status: Acute (3) Right flank pain Status: Acute Past Medical History - Allergies and Home Meds Allergies/Adverse Reactions: Allergies ketorolac tromethamine [From Toradol] Allergy (Verified 05/26/19 17:31) Rash Penicillins Allergy (Verified 05/26/19 17:31) Hives promethazine HCl [From Phenergan] Allergy (Verified 05/26/19 17:31) Hives aspirin Adverse Reaction (Verified 05/26/19 17:31) Upset Stomach CT DYE Allergy (Uncoded 05/26/19 17:31) Anaphylaxis IV contrast Allergy (Uncoded 05/26/19 17:31) Anaphylaxis Primary Care Physician: Marcelino Albert MD [Primary Care Provider] - Prior records reviewed: Yes Surgical History: cholecystectomy, hysterectomy Lives: Spouse/ Significant Other Smoking Status: Current every day smoker Alcohol: Rare Drugs: None Review of Systems General: Denies: Chills, Fever, Sweats Eyes: Denies: Visual changes - bilaterally, Diplopia ENT: Denies: Rhinorrhea, Sore throat Cardiovascular: Denies: Chest pain, Palpitations Respiratory: Denies: Dyspnea, Cough, Dyspnea on exertion Gastrointestinal: Reports: Abdominal pain, Nausea. Denies: Vomiting, Diarrhea, Melena, Hematochezia Genitourinary: Denies: Dysuria, Hematuria, Frequency Musculoskeletal: Denies: Myalgias, Arthralgias, Neck pain, Back pain, Swelling, Extremity Pain Skin: Denies: Rash, Abrasions, Wounds Neurological: Denies: Headache, Weakness, Numbness Hematologic: Denies: Easy bruising, Easy bleeding Allergy: Denies: Uticaria, Swelling of the mouth Physical Exam Vital Signs/Narrative: Vital Signs Temp Pulse Resp BP Pulse Ox 05/26/19 17:27 97.6 F L 82 20 H 121/67 H 97 Inital Vital Signs reviewed: Yes General: Well nourished, Well developed, No Acute Distress Head: Normocephalic, Atraumatic Eyes: Perrl, EOMI ENT: Moist mucous membranes, No rhinorrhea Neck: Supple, Nontender Cardiovascular: Regular rate, Regular rhythm, No murmurs Respiratory: No distress, CTA bilaterally, Chest nontender Abdomen: Soft, Nondistended, Normal bowel sounds, Tender - Out of proportion to light tactile stimulus Back: Normal Inspection. Negative for: Nontender - Pain to palpation right mid and lower back to minimal tactile stimulus, CVA tenderness Extremities: Nontender, No edema Skin: Normal color, No rash Neurological: Alert, Oriented x3, Cranial nerves II-XII grossly intact, Normal Strength, Normal Sensation Psychological: Depressed. Negative for: Normal affect, Normal Mood Diagnostic/Tx/Re-eval Laboratory Results 05/26/19 17:40 Urine Color Yellow Urine Clarity Cloudy Urine pH 6.0 Ur Specific [place] 1.010 Urine Protein Negative Urine Glucose (UA) Normal Urine Ketones Negative Urine Occult Blood 10 H Urine Nitrite Negative Urine Bilirubin Negative Urine Urobilinogen Normal Ur Leukocyte Esterase Negative Urine RBC 0 SEEN Urine WBC 0-5 SEEN Ur Squamous Epith Cells 10-25 SEEN Amorphous Sediment 1+ Urine Bacteria RARE Urine Mucus 0 SEEN With no blood in urine and exam that is not consistent with obstructing patient was treated with Tylenol. She was not given opiates since there is no indication for opiates. - Medical Decision Making With history of renal calculi will obtain urine to assess for blood and infection. Patient's physical exam is not consistent with obstructing ureteral calculus. Based on her numerous allergies she was treated with the p.o. acetaminophen. ED Disposition - Plan for ED Patient: Disposition: Home or Assisted Living Diagnosis: Right-sided abdominal pain of unknown cause Instructions: ABDOMINAL PAIN, Unknown Cause, (Female) Referrals: Marcelino Albert MD [Primary Care Provider] - 1-2 Days if not improving
[2019-05-26] MEDS: Acetaminophen 325 MG Tablet 650 MG PO (17:42)
[2019-05-26 17:51] LABS: Mucous, Urine 0 SEEN /hpf (<or=2+); Red Blood Cells-Urine 0 SEEN /hpf (0-5)
[2019-05-26 17:57] LABS: Color, Urine Yellow (Yellow); Glucose, Dipstick Normal (Normal); Ketone-Dipstick Negative (Negative); Leukocyte Esterase-Dipstick Negative /ul (Negative); Nitrite-Dipstick Negative (Negative); Occult Blood-Urine 10 /ul (Negative); Protein-Dipstick Negative (Negative); Urine Bilirubin Dipstick Negative (Negative); Urine Clarity Cloudy (Clear); Urine Urobilinogen Normal (Normal)
[2019-05-26 18:04] LABS: Amorphous Sediment 1+
[2019-05-26 18:05] LABS: Bacteria RARE /hpf (None Seen); White Blood Cells 0-5 SEEN /hpf (0-5)
[2019-05-26 18:06] LABS: Squamous Epithelial Cells - UA 10-25 SEEN /hpf (5-10)
--- NOTE | 2019-05-26 18:35 | CM.ED ---
Social Work Consult: Emergency Department Care Plan Informant: Dr. Painter. Chief Complaint: Abdominal Pain. Relationship/Social History: In a dating relationship with boyfriend for the pat 3 years. Has 20 and 17 year old sons. Living Situation: Lives with boyfriend. Employment/Education: High School Diploma. Unemployed. Mental Health treatment/Hx: Diagnosed with depression, anxiety, and bi-polar. Has not had treatment for mental health for the pat 3 years. Recently decided to reestablish with mental health services and has an appointment with a psychiatrist for at [facility]. Denies any inpatient psychiatric stays. Support/Resources: Boyfriend and family. Getting established with [facility]. Transportation: Does not drive. Walks to all that I need. Specialist: None. PCP: Dr. Albert Risk to self/others: Denies any suicidal or homicidal thoughts/ideations. Assessment: Met with patient in room. Introduced self as well as child protective services social worker role. Patient agreeable to meeting with this child protective services social worker. Patient noted to frequent the emergency room for pain. This child protective services social worker broached topic of pain management for patient. Patient stating to have had pain management 2 years ago and to have only had one appointment. Patient stating to not be sure who is in-network with patient insurance. Patient stating to also need to set up an appointment with a urologist, but again to not be sure who is in-network with patient insurance. Patient stating that pain and kidney stones in the primary reason patient comes to the emergency department. This child protective services social worker providing patient with list of in-network patient management doctors as well as urologist. PLAN: Complete chart review and present EDCP to qualify committee for review. Marcela KIRKLAND, ETIENNE
--- NOTE | 2019-07-29 17:05 | CM.ED ---
Social Work ED Care Plan approved. ED Care Plan entered into this visit. Telephone call to patient. Updated patient on ED Care Plan process and reasoning, for continuity of patient care. Patient voicing understanding and has no questions at this time. Patient voice presenting in a pleasant and calm affect. Marcela KIRKLAND, ETIENNE
--- NOTE | 2019-08-03 13:58 | CM.ED ---
Social Work ED Care Plan and resources sent to patient via certified mail. Tracking# [id number] ED Care Plan faxed to patient primary care physician for continuity of care. Marcela KIRKLAND, ETIENNE
== END 2019-05-26 18:44 | disposition home or self-care (01) ==
PROVIDERS: Emergency Provider Emergency Medicine; Family Provider Family Medicine; PCP Family Medicine
DX: R10.11 Right upper quadrant pain (principal); E78.00 Pure hypercholesterolemia, unspecified; F17.200 Nicotine dependence, unspecified, uncomplicated; Z87.442 Personal history of urinary calculi; Z88.0 Allergy status to penicillin; Z88.6 Allergy status to analgesic agent; Z88.8 Allergy status to other drugs, medicaments and biological substances; Z90.49 Acquired absence of other specified parts of digestive tract; Z90.710 Acquired absence of both cervix and uterus
CPT/HCPCS: 81001; 99284

== ENCOUNTER 2019-09-02 05:29 | Emergency (ER) | payer MEDICAID, SELFPAY ==
[2019-09-02 05:30] VITALS: BP 123/71; PULSE 82; RESP 18; TEMP 36.4; O2SAT 99; BMI 37.6
--- NOTE | 2019-09-02 05:47 | CT_ITS ---
STUDY: CT ABDOMEN AND PELVIS WITHOUT CONTRAST REASON FOR EXAM: Female, 39 years old. RIGHT FLANK PAIN WITH HISTORY OF KIDNEY STONES. PRIOR TOTAL HYSTERECTOMY AND CHOLECYSTECTOMY RADIATION DOSAGE (If Supplied By Facility): CTDIvol = ( 10.65 ) mGy, DLP = ( 569.22 ) mGycm TECHNIQUE: Transaxial images were obtained from the dome of the diaphragm to the symphysis pubis without oral contrast, and without intravenous contrast. Sagittal and coronal images were reconstructed. Individualized dose optimization techniques were used for this CT. COMPARISON: None. FINDINGS: The visualized lung bases are unremarkable. The visualized portions of the heart are within normal limits. Multiple decrease attenuation lesions are seen in the liver the largest measures 9.66 cm. There are surgical clips in the gallbladder fossa consistent with a prior cholecystectomy. Normal spleen. Normal pancreas. Normal bilateral adrenal glands. Bilateral kidney stones the largest measures 3 mm is in the right kidney. Normal visualized stomach. Normal small intestine. Normal colon. The appendix is visualized and appears normal. Normal abdominal aorta. Normal inferior vena cava. Normal retroperitoneum. Normal urinary bladder. There is an adnexal cyst measures 4 cm on the right side. Normal abdominal wall. Normal osseous structures. CT/Abdomen/Pelvis without Cont IMPRESSION: Multiple decrease attenuation lesions are seen in the liver the largest measures 9.66 cm. Bilateral kidney stones the largest measures 3 mm is in the right kidney. There is an adnexal cyst measures 4 cm on the right side. Electronically Signed: Anahi Rivas, at 7:32 EST Tel , Service support ,
[2019-09-02] MEDS: Ondansetron 4 MG/2 ML Vial IV (06:23)
[2019-09-02] MEDS: 0.9% Normal Saline 1,000 ML 250 ML IV (06:23)
[2019-09-02] MEDS: HYDROmorphone 0.5 MG/0.5 ML SYRINGE IV (06:25)
[2019-09-02 06:28] LABS: Bacteria 0 SEEN /hpf (None Seen); Mucous, Urine 0 SEEN /hpf (<or=2+)
[2019-09-02 06:29] LABS: Absolute Lymphocyte Count 2.81 X10^3/uL (0.83-4.51); Absolute Neutrophil Count 5.1 X10^3/uL (2.0-7.7); Basophil# 0.04 X10^3/uL; Basophil% 0.5 % (0-1); Eosinophil# 0.22 X10^3/uL; Eosinophils% 2.5 % (0-5); Hematocrit 38.4 % (37-47); Hemoglobin 12.5 g/dL (12.0-15.0); Lymphocyte # 2.81 X10^3/ul (4.0); Lymphocyte % 32.1 % (19-41); Mean Corp Hgb Conc 32.6 g/dL (32-36); Mean Corpuscular Volume 92.3 fL (81-99); Monocyte# 0.54 X10^3/uL; Monocyte% 6.2 % (0-10); NRBC Flagged by Analyzer 0 % (0-5); Neutrophil % 58.1 % (47-70); Platelet Count 224 K/mm3 (150-450); RBC Distribution Width CV 12.4 % (11.6-14.6); RBC Distribution Width SD 41.9 fl (35.1-43.9); Red Blood Count 4.16 M/mm3 (4.2-5.4); White Blood Count 8.8 K/mm3 (4.4-11.0)
[2019-09-02 06:41] LABS: Anion Gap 3 (5-15); BUN 16 mg/dL (7-18); BUN/Creat Ratio 17.9 RATIO (10-20); Calcium,Total 8.7 mg/dL (8.5-10.1); Chloride 107 mmol/L (98-107); Creatinine, Serum 0.89 mg/dL (0.55-1.02); EST Glomerular Filtration Rate 74 mL/min (>60); Est Glom Filt Rate - Afr Amer 90 mL/min (>60); Estimated Creatinine Clearance 63.41 ml/min; Glucose 96 mg/dL (74-106); Potassium 3.6 mmol/L (3.5-5.1); Sodium Level 139 mmol/L (136-145)
[2019-09-02 06:53] LABS: Color, Urine Yellow (Yellow); Glucose, Dipstick Normal (Normal); Ketone-Dipstick Negative (Negative); Leukocyte Esterase-Dipstick 25 /ul (Negative); Nitrite-Dipstick Negative (Negative); Occult Blood-Urine 25 /ul (Negative); Protein-Dipstick Negative (Negative); Red Blood Cells-Urine 5-10 SEEN /hpf (0-5); Specific Gravity, Urine 1.025 (1.002-1.030); Squamous Epithelial Cells - UA > 100 SEEN /hpf (5-10); Urine Bilirubin Dipstick Negative (Negative); Urine Clarity Sl. Cloudy (Clear); Urine Urobilinogen 4 mg/dl (Normal); White Blood Cells 5-10 SEEN /hpf (0-5)
--- NOTE | 2019-09-02 07:44 | ED.VIS.GEN ---
History of Present Illness Chief Complaint: Flank Pain Informant: Patient Onset: Yesterday Context: Gradual Onset Timing: Waxes and wanes Current Severity: Severe Maximum Severity: Severe Narrative: Patient presents with right flank pain and a history of kidney stones. She states pain became severe around 10 PM last evening. She has had vomiting. She states her urine looks dark but she has not had dysuria. - Past Medical History (1) High cholesterol Status: Chronic (2) Right flank pain Status: Chronic (3) Ureteral stone with hydronephrosis Status: Chronic Past Medical History - Allergies and Home Meds Allergies/Adverse Reactions: Allergies ketorolac tromethamine [From Toradol] Allergy (Verified 09/02/19 05:34) Rash Penicillins Allergy (Verified 09/02/19 05:34) Hives promethazine HCl [From Phenergan] Allergy (Verified 09/02/19 05:34) Hives aspirin Adverse Reaction (Verified 09/02/19 05:34) Upset Stomach CT DYE Allergy (Uncoded 09/02/19 05:34) Anaphylaxis IV contrast Allergy (Uncoded 09/02/19 05:34) Anaphylaxis Primary Care Physician: Marcelino Albert MD [Primary Care Provider] - Surgical History: cholecystectomy, hysterectomy Smoking Status: Current every day smoker Review of Systems General: Denies: Chills, Fever Eyes: Denies: Visual changes - bilaterally ENT: Denies: Bilateral ear pain, Rhinorrhea, Sore throat Cardiovascular: Denies: Chest pain Respiratory: Denies: Dyspnea, Cough, Sputum Gastrointestinal: Reports: Abdominal pain, Nausea, Vomiting. Denies: Diarrhea Genitourinary: Denies: Dysuria Musculoskeletal: Denies: Swelling, Extremity Pain Skin: Denies: Rash Hematologic: Denies: Easy bruising Allergy: Denies: Uticaria Physical Exam Vital Signs/Narrative: Vital Signs Temp Pulse Resp BP Pulse Ox 09/02/19 05:30 97.6 F L 82 18 123/71 H 99 Inital Vital Signs reviewed: Yes General: Well nourished, Well developed ENT: Moist mucous membranes Neck: Supple Cardiovascular: Regular rate, Regular rhythm Respiratory: No distress, CTA bilaterally Abdomen: Soft, Tender - Mild right lower quadrant tenderness.. Negative for: Guarding, Rebound tenderness Extremities: Nontender Skin: Normal color, No rash Neurological: Alert, Oriented x3 Psychological: Normal affect Diagnostic/Tx/Re-eval Impressions Abdomen/Pelvis CT 09/02/19 05:47 IMPRESSION: Multiple decrease attenuation lesions are seen in the liver the largest measures 9.66 cm. Bilateral kidney stones the largest measures 3 mm is in the right kidney. There is an adnexal cyst measures 4 cm on the right side. Electronically Signed: Anahi Rivas, at 7:32 EST Tel , Service support , 09/02/19 05:47 Abdomen/Pelvis without Cont [CT] Stat Laboratory Results 09/02/19 09/02/19 09/02/19 06:20 06:20 06:20 WBC 8.8 RBC 4.16 L Hgb 12.5 Hct 38.4 MCV 92.3 MCH 30.0 MCHC 32.6 RDW Std Deviation 41.9 RDW Coeff of Shun 12.4 Plt Count 224 MPV 11.0 Immature Gran % (Auto) 0.600 Neut % (Auto) 58.1 Lymph % (Auto) 32.1 [place] % (Auto) 6.2 Eos % (Auto) 2.5 Baso % (Auto) 0.5 Absolute Neuts (auto) 5.1 Absolute Lymphs (auto) 2.81 Nucleated RBC % 0 Sodium 139 Potassium 3.6 Chloride 107 Carbon Dioxide 29.0 Anion Gap 3 L BUN 16 Creatinine 0.89 Estim Creat Clear Calc 63.41 Est GFR (MDRD) Af Amer 90 Est GFR (MDRD) Non-Af 74 BUN/Creatinine Ratio 17.9 Glucose 96 Calcium 8.7 Urine Color Yellow Urine Clarity Sl. Cloudy Urine pH 6.0 Ur Specific [place] 1.025 Urine Protein Negative Urine Glucose (UA) Normal Urine Ketones Negative Urine Occult Blood 25 H Urine Nitrite Negative Urine Bilirubin Negative Urine Urobilinogen 4 H Ur Leukocyte Esterase 25 H Urine RBC 5-10 SEEN Urine WBC 5-10 SEEN Ur Squamous Epith Cells > 100 SEEN Urine Bacteria 0 SEEN Urine Mucus 0 SEEN - Medical Decision Making Patient was initially given Dilaudid, Zofran, and IV fluids. On repeat evaluation she is resting more comfortably still has some right-sided pain. Patient has had a hysterectomy and oophorectomy. She does have evidence of an adnexal cyst on the right and this is the area where she is describing her pain. She tells me that she did have surgery last year with Dr. Palacios in [place] secondary to a large cyst on her left side. Her left ovary had been removed prior to this as well. I recommended she follow-up Dr. Palacios again. Patient will be given a prescription for [place]. ED Disposition - Plan for ED Patient: Disposition: Home or Assisted Living Diagnosis: Adnexal cyst Instructions: ABDOMINAL PAIN, Unknown Cause, (Female) Prescriptions: Hydrocodone Bitart/Apap 5-325 [[place] 5MG-325MG] 1 tablet PO Q6H PRN PRN 3 Days #10 tablet PRN Reason: Pain Transmission Status: Received by [facility]/pharmacy #[id number] Referrals: Delon Palacios MD [STAFF PHYSICIAN] - As soon as possible
[2019-09-02 07:51] VITALS: BP 98/60; PULSE 69; RESP 16; O2SAT 96
[2019-09-02] MEDS: Morphine 4 MG/ML Syringe IV (08:09)
== END 2019-09-02 08:30 | disposition home or self-care (01) ==
PROVIDERS: Emergency Provider Emergency Medicine; Family Provider Family Medicine; PCP Family Medicine
DX: D23.9 Other benign neoplasm of skin, unspecified (principal); E78.00 Pure hypercholesterolemia, unspecified; F17.200 Nicotine dependence, unspecified, uncomplicated; N20.0 Calculus of kidney; Z87.442 Personal history of urinary calculi; Z88.0 Allergy status to penicillin; Z88.6 Allergy status to analgesic agent; Z88.8 Allergy status to other drugs, medicaments and biological substances; Z90.49 Acquired absence of other specified parts of digestive tract; Z90.710 Acquired absence of both cervix and uterus
CPT/HCPCS: 74176; 80048; 81001; 85025; 96361; 96374; 96375; 99285; J7030; A4216; J2405

== ENCOUNTER 2019-09-03 06:31 | Emergency (ER) | payer MEDICAID, SELFPAY ==
[2019-09-02 05:30] VITALS: BMI 37.6
[2019-09-03 06:32] VITALS: BP 125/77; PULSE 90; RESP 18; TEMP 36.7; O2SAT 98; BMI 38.8
[2019-09-03] MEDS: HYDROmorphone 1 MG/ML Syringe IV (06:53)
[2019-09-03] MEDS: Ondansetron 4 MG/2 ML Vial IV (06:53)
[2019-09-03 07:02] LABS: Absolute Lymphocyte Count 3.18 X10^3/uL (0.83-4.51); Basophil# 0.05 X10^3/uL; Basophil% 0.6 % (0-1); Differential Indicated SCAN CRITERIA MET; Eosinophil# 0.32 X10^3/uL; Eosinophils% 3.9 % (0-5); Hematocrit 39.4 % (37-47); Hemoglobin 12.6 g/dL (12.0-15.0); Lymphocyte # 3.18 X10^3/ul (4.0); Lymphocyte % 38.9 % (19-41); Mean Corpuscular Hgb 29.6 pg (27.0-32.0); Mean Corpuscular Volume 92.7 fL (81-99); Mean Platelet Vol. 12.1 fl (6.2-12.0); Monocyte# 0.52 X10^3/uL; Monocyte% 6.4 % (0-10); NRBC Flagged by Analyzer 0 % (0-5); Neutrophil # 4.04 X10^3/uL (2.7-7.7); Neutrophil % 49.5 % (47-70); POSITIVE COUNT YES; Platelet Count 205 K/mm3 (150-450); RBC Distribution Width CV 12.4 % (11.6-14.6); Red Blood Count 4.25 M/mm3 (4.2-5.4); White Blood Count 8.2 K/mm3 (4.4-11.0)
[2019-09-03] MEDS: DiphenhydrAMINE 50 MG/ML Syringe 25 MG IV (07:12)
[2019-09-03 07:21] LABS: Anion Gap 4 (5-15); BUN 13 mg/dL (7-18); BUN/Creat Ratio 14.3 RATIO (10-20); Calcium,Total 8.9 mg/dL (8.5-10.1); Chloride 108 mmol/L (98-107); Creatinine, Serum 0.91 mg/dL (0.55-1.02); EST Glomerular Filtration Rate 73 mL/min (>60); Est Glom Filt Rate - Afr Amer 88 mL/min (>60); Estimated Creatinine Clearance 62.01 ml/min; Glucose 82 mg/dL (74-106); Potassium 3.7 mmol/L (3.5-5.1); Sodium Level 138 mmol/L (136-145)
--- NOTE | 2019-09-03 07:23 | ED.DCSUM_ITS ---
- ER Visit Summary Date of Service: 09/03/19 Chief Complaint: Pelvic pain History of Present Illness: The patient is a 39 F With right-sided pelvic pain. She was seen yesterday for the same. She was found to have a 4 cm adnexal cyst on the right side. She was treated with pain medicine and referred to follow-up with her [facility] oncologist, Dr. Palacios. She has seen [facility] oncology in the past for uterine cancer and bilateral nephrectomies for ovarian cysts. In 2017, she had lysis of adhesions by Dr. Palacios. She has no other [employer] symptoms. Denies any urinary symptoms. She has nausea and vomiting, but no other GI symptoms. No fevers. Physical Examination: Afebrile and vital signs unremarkable. Alert and oriented. Appears uncomfortable. Heart regular. Lungs clear. Right lower abdominal tenderness in the pelvic region. No guarding or rebound. Back is nontender. Skin appears normal. Test Results: CBC and BMP repeated and were unremarkable. I reviewed her CT abdomen from yesterday. It showed a 4 cm right adnexal cyst as well as kidney stones that are in her bilateral kidneys, with the largest one on the right measuring 3 mm. Nonobstructing. She also has hypoattenuation lesions in her liver. I am concerned that the pain is from her adnexal mass. Patient would like to be treated at this hospital. I spoke with Dr. Sosa who is on- call for [employer]. Because the patient is established with [facility] oncology, has a history of cancer, and is established with Dr. vaca, she was recommending follow-up with him. Patient failed outpatient therapy. She is not tolerating [place] at home. I believe she will need inpatient care, so I called [facility] for transfer. At the time of this dictation, I am awaiting an accepting physician. The oncoming physician will assist with disposition. Emergency Department Course and Treatment: As above Treatment Plan: As above Disposition: Transfer Impression: Right adnexal mass This note was generated with [employer] dictation software. It may contain incorrect words, spelling, and punctuation that were not noted in review of the chart prior to signing ED Disposition - Plan for ED Patient: Referrals: Marcelino Albert MD [Primary Care Provider] -
[2019-09-03 07:41] VITALS: BP 122/72; PULSE 67; RESP 16; O2SAT 100
[2019-09-03 07:41] LABS: Differential Comment SCANNED
--- NOTE | 2019-09-03 08:12 | ED.RN ---
[facility] TO TRANSPORT PATIENT, REPORT AND CARE TO THEM, PATIENT STATUS UNCHANGED.
[2019-09-03] MEDS: HYDROmorphone 0.5 MG/0.5 ML SYRINGE IV (08:19)
== END 2019-09-03 08:20 | disposition short-term general hospital (02) ==
PROVIDERS: Emergency Provider Emergency Medicine; Family Provider Family Medicine; PCP Family Medicine
DX: R19.09 Other intra-abdominal and pelvic swelling, mass and lump (principal); N20.0 Calculus of kidney; K76.89 Other specified diseases of liver; Z85.42 Personal history of malignant neoplasm of other parts of uterus; Z90.710 Acquired absence of both cervix and uterus; Z90.722 Acquired absence of ovaries, bilateral
CPT/HCPCS: 80048; 85025; 96374; 96375; 96376; 99285; A4216; J2405

== ENCOUNTER 2019-09-11 05:27 | Emergency (ER) | payer MEDICAID, SELFPAY ==
[2019-09-11 05:28] VITALS: BP 129/58; PULSE 90; RESP 16; TEMP 36.4; O2SAT 98; BMI 38.1
--- NOTE | 2019-09-11 06:06 | CT_ITS ---
STUDY: CT ABDOMEN AND PELVIS WITHOUT CONTRAST REASON FOR EXAM: Female, 39 years old. ABD PAIN, RECENT LITHOTRIPSY ON RT SIDE RADIATION DOSAGE (If Supplied By Facility): CTDIvol = ( 14.18 ) mGy, DLP = ( 722.51 ) mGycm TECHNIQUE: Transaxial images were obtained from the dome of the diaphragm to the symphysis pubis without oral contrast, and without intravenous contrast. Sagittal and coronal images were reconstructed. Individualized dose optimization techniques were used for this CT. COMPARISON: September 02, 2019, June 26, 2018 CT scan abdomen and pelvis March 29, 2019 FINDINGS: The visualized lung bases are unremarkable. The visualized portions of the heart are within normal limits. There are multiple cystic structures within the liver the largest of which is in the right hepatic lobe measuring 8.9 x 6.4 cm with Hounsfield units in the range of simple fluid stable since prior study. There are surgical clips in the gallbladder fossa consistent with a prior cholecystectomy. Normal spleen. Normal pancreas. Normal bilateral adrenal glands. There is a 3 mm stone lower pole right kidney. There is minimal right pelviectasis. There is a phlebolith medial to the distal right ureter. There is mild left pelviectasis. There is minimal distention of the left proximal ureter. There is no visualized stone along the course of the left ureter. There are phleboliths in the pelvis similar to the prior study. There are punctate stones in the left kidney.. Normal visualized stomach. Normal small intestine. There is moderate stool in the colon from the cecum to the rectum. There is non-visualization of the appendix. Normal abdominal aorta. Normal inferior vena cava. Normal retroperitoneum. Normal urinary bladder. There is absence of the uterus consistent with a prior hysterectomy. Since prior study June 26, 2018 and March 29, 2019 there has been a development of a right adnexal mass that measures 5.0 x 3.4 x 3.4 cm. This is larger than September 02, 2019 when it measured 3.8 x 2.9 x 2.9 cm. Normal abdominal wall. There are diffuse degenerative changes of the visualized lumbar spine. L4-L5 there is a broad disc bulge moderate neural foramina narrowing mild central stenosis. At L5-S1 there is a broad disc bulge with osteophytosis with mild to moderate neural foramina narrowing minimal central stenosis. CT/Abdomen/Pelvis without Cont IMPRESSION: Stable bilateral pelvic phleboliths since 2018. Minimal stable bilateral pelviectasis. Stable bilateral small renal stones. There is an enlarging right-sided adnexal mass, enlarging since September 02, 2019, new Since March 29, 2019. It now measures 5.0 x 3.5 x 2.4 cm. It is become atypical by size. Further evaluation is warranted with ultrasound and/or MRI of the pelvis. Status post hysterectomy. Constipation. Status post cholecystectomy Stable bilateral hepatic cyst the largest of which measures 8.9 x 6.4 cm. Electronically Signed: Kristen Chowdary MD at 8:36 EST Tel , Service support ,
--- NOTE | 2019-09-11 06:08 | ED.DCSUM_ITS ---
History of Present Illness Chief Complaint: Abd Pain Narrative: Patient is a 39-year-old female who presents with abdominal pain. She has had extensive emergency department visits and multiple CTs for abdominal pain. Most recently she had a scan which was concerning for an adnexal mass/cyst. However she reports total hysterectomy for history of uterine cancer. She was transferred to [facility]. She had a ureteroscopy. She states her symptoms were attributed to a kidney stone although imaging here showed no obstructing calculi. She was discharged with 5 Percocet which she ran out of a couple of days ago. She complains of ongoing pain nausea and vomiting which she was having when she was transferred. Past Medical History - Allergies and Home Meds Allergies/Adverse Reactions: Allergies ketorolac tromethamine [From Toradol] Allergy (Verified 09/11/19 05:35) Rash Penicillins Allergy (Verified 09/11/19 05:35) Hives promethazine HCl [From Phenergan] Allergy (Verified 09/11/19 05:35) Hives aspirin Adverse Reaction (Verified 09/11/19 05:35) Upset Stomach CT DYE Allergy (Uncoded 09/11/19 05:35) Anaphylaxis IV contrast Allergy (Uncoded 09/11/19 05:35) Anaphylaxis Primary Care Physician: Marcelino Albert MD [Primary Care Provider] - Past Medical History: - - History of uterine cancer, total hysterectomy, nephrolithiasis Surgical History: cholecystectomy, hysterectomy Smoking Status: Current every day smoker Review of Systems All systems negative except as indicated General: Denies: Fever Cardiovascular: Denies: Chest pain Respiratory: Denies: Dyspnea Gastrointestinal: Reports: Abdominal pain, Nausea, Vomiting. Denies: Diarrhea Skin: Denies: Rash Neurological: Denies: Headache Allergy: Denies: Uticaria Physical Exam Vital Signs/Narrative: Vital Signs Temp Pulse Resp BP Pulse Ox 09/11/19 05:28 97.5 F L 90 16 129/58 H 98 Inital Vital Signs reviewed: Yes General: Well nourished, Well developed, No Acute Distress Head: Normocephalic, Atraumatic Eyes: EOMI ENT: Moist mucous membranes Neck: Supple Cardiovascular: Regular rate, Regular rhythm Respiratory: No distress, CTA bilaterally Abdomen: Soft, Nontender, Nondistended Extremities: Nontender Skin: Normal color Neurological: Alert Psychological: Normal affect Diagnostic/Tx/Re-eval 09/11/19 06:06 Abdomen/Pelvis without Cont [CT] Stat Laboratory Results 09/11/19 09/11/19 09/11/19 06:19 06:19 06:30 WBC 10.1 RBC 4.34 Hgb 13.1 Hct 39.7 MCV 91.5 MCH 30.2 MCHC 33.0 RDW Std Deviation 42.5 RDW Coeff of Shun 12.8 Plt Count 247 MPV 10.3 Immature Gran % (Auto) 1.500 H Neut % (Auto) 64.6 Lymph % (Auto) 24.4 [place] % (Auto) 5.8 Eos % (Auto) 3.2 Baso % (Auto) 0.5 Absolute Neuts (auto) 6.5 Absolute Lymphs (auto) 2.46 Nucleated RBC % 0 Sodium 137 Potassium 3.7 Chloride 105 Carbon Dioxide 27.0 Anion Gap 5 BUN 11 Creatinine 0.83 Estim Creat Clear Calc 67.99 Est GFR (MDRD) Af Amer 99 Est GFR (MDRD) Non-Af 81 BUN/Creatinine Ratio 13.3 Glucose 104 Calcium 8.7 Urine Color Yellow Urine Clarity Sl. Cloudy Urine pH 6.0 Ur Specific [place] 1.015 Urine Protein Negative Urine Glucose (UA) Normal Urine Ketones Negative Urine Occult Blood 10 H Urine Nitrite Negative Urine Bilirubin Negative Urine Urobilinogen Normal Ur Leukocyte Esterase Negative Urine RBC 0 SEEN Urine WBC 0 SEEN Ur Squamous Epith Cells 10-25 SEEN Urine Bacteria RARE Urine Mucus 1+ - Medical Decision Making CBC, BMP, urinalysis unremarkable. Patient has a history of recurrent similar symptoms with multiple prior evaluations. However given that she does report recent surgery which on records appears to have been a ureteroscopy a repeat CT was obtained. This is pending at the time of this dictation. However given that the patient is resting comfortably with normal vitals a benign abdominal examination as long as CT imaging does not show acute findings I believe she can be discharged. ED Disposition - Plan for ED Patient: Disposition: Home or Assisted Living Diagnosis: Abdominal pain Instructions: ABDOMINAL PAIN, Unknown Cause, (Female) Referrals: Marcelino Albert MD [Primary Care Provider] -
[2019-09-11] MEDS: Ondansetron 4 MG/2 ML Vial IV (06:24)
[2019-09-11 06:25] LABS: Absolute Lymphocyte Count 2.46 X10^3/uL (0.83-4.51); Absolute Neutrophil Count 6.5 X10^3/uL (2.0-7.7); Basophil# 0.05 X10^3/uL; Basophil% 0.5 % (0-1); Eosinophil# 0.32 X10^3/uL; Eosinophils% 3.2 % (0-5); Hematocrit 39.7 % (37-47); Hemoglobin 13.1 g/dL (12.0-15.0); Lymphocyte # 2.46 X10^3/ul (4.0); Lymphocyte % 24.4 % (19-41); Mean Corpuscular Hgb 30.2 pg (27.0-32.0); Mean Corpuscular Volume 91.5 fL (81-99); Mean Platelet Vol. 10.3 fl (6.2-12.0); Monocyte# 0.58 X10^3/uL; Monocyte% 5.8 % (0-10); NRBC Flagged by Analyzer 0 % (0-5); Neutrophil # 6.52 X10^3/uL (2.7-7.7); Neutrophil % 64.6 % (47-70); Platelet Count 247 K/mm3 (150-450); RBC Distribution Width CV 12.8 % (11.6-14.6); RBC Distribution Width SD 42.5 fl (35.1-43.9); Red Blood Count 4.34 M/mm3 (4.2-5.4); White Blood Count 10.1 K/mm3 (4.4-11.0)
[2019-09-11] MEDS: oxyCODONE 5 MG Tablet PO (06:25)
[2019-09-11 06:31] LABS: Red Blood Cells-Urine 0 SEEN /hpf (0-5); White Blood Cells 0 SEEN /hpf (0-5)
[2019-09-11 06:32] LABS: Color, Urine Yellow (Yellow); Glucose, Dipstick Normal (Normal); Ketone-Dipstick Negative (Negative); Leukocyte Esterase-Dipstick Negative /ul (Negative); Nitrite-Dipstick Negative (Negative); Occult Blood-Urine 10 /ul (Negative); Protein-Dipstick Negative (Negative); Specific Gravity, Urine 1.015 (1.002-1.030); Urine Bilirubin Dipstick Negative (Negative); Urine Clarity Sl. Cloudy (Clear); Urine Urobilinogen Normal (Normal)
[2019-09-11 06:36] LABS: Anion Gap 5 (5-15); BUN 11 mg/dL (7-18); BUN/Creat Ratio 13.3 RATIO (10-20); Calcium,Total 8.7 mg/dL (8.5-10.1); Chloride 105 mmol/L (98-107); Creatinine, Serum 0.83 mg/dL (0.55-1.02); EST Glomerular Filtration Rate 81 mL/min (>60); Est Glom Filt Rate - Afr Amer 99 mL/min (>60); Estimated Creatinine Clearance 67.99 ml/min; Glucose 104 mg/dL (74-106); Potassium 3.7 mmol/L (3.5-5.1); Sodium Level 137 mmol/L (136-145)
[2019-09-11 06:41] LABS: Bacteria RARE /hpf (None Seen); Mucous, Urine 1+ /hpf (<or=2+); Squamous Epithelial Cells - UA 10-25 SEEN /hpf (5-10)
[2019-09-11 08:17] VITALS: RESP 18
[2019-09-11] MEDS: oxyCODONE 5 MG Tablet 10 MG PO (10:06)
== END 2019-09-11 10:45 | disposition short-term general hospital (02) ==
PROVIDERS: Emergency Medicine; Emergency Provider Emergency Medicine; Family Provider Family Medicine; PCP Family Medicine
DX: R10.9 Unspecified abdominal pain (principal); R11.2 Nausea with vomiting, unspecified; Z85.42 Personal history of malignant neoplasm of other parts of uterus; Z87.442 Personal history of urinary calculi; Z90.710 Acquired absence of both cervix and uterus; F17.200 Nicotine dependence, unspecified, uncomplicated
CPT/HCPCS: 74176; 80048; 81001; 85025; 96374; 99285; A4216; J2405

== ENCOUNTER 2019-10-23 17:22 | Emergency (ER) | payer MEDICAID, SELFPAY ==
[2019-10-23 17:23] VITALS: BP 115/80; PULSE 88; RESP 16; TEMP 36.9; O2SAT 99; BMI 38.2
--- NOTE | 2019-10-23 17:34 | ED.DCSUM_ITS ---
History of Present Illness Chief Complaint: Abd Pain Informant: Patient Onset: Days Context: Gradual Onset Timing: Continuous Quality: Pain left lower quadrant and flank with dysuria and hematuria Location: Previously documented Current Severity: Mild Maximum Severity: Moderate Worsened by: Movement Relieved by: Nothing Associated Symptoms: No vomiting, diarrhea or fever and chills Narrative: Patient is a 39-year-old woman who presents with left-sided abdominal pain and flank pain associated with dysuria and hematuria. She is seen September 11 and had a CAT scan revealed an ovarian mass. Because of her prior history of uterine cancer she was referred to oncologic [facility] [employer]. She was transferred [facility]. She is had her right ovary/mass removed. She has been in contact with her urologist. Urologist recommended she come to the emergency room to be evaluated for kidney stone. Prior records indicates she has a kidney stone on the right side not left side. She denies fever, chills or night sweats. Denies weight gain or weight loss. She denies cardiac respiratory symptoms. She denies nausea, vomiting or diarrhea. There is no history of trauma. She has not noted a rash. Prior similar symptoms: Yes Recent Illness/Hospitalization: Yes - Past Medical History (1) Right tubo-ovarian mass Status: Acute (2) History of uterine cancer Status: Acute (3) History of renal calculi Status: Acute (4) High cholesterol Status: Chronic (5) Right flank pain Status: Chronic (6) Ureteral stone with hydronephrosis Status: Chronic Past Medical History - Allergies and Home Meds Allergies/Adverse Reactions: Allergies ketorolac tromethamine [From Toradol] Allergy (Verified 10/23/19 17:27) Rash metronidazole [From Flagyl] Allergy (Verified 10/23/19 17:28) Hives Penicillins Allergy (Verified 10/23/19 17:27) Hives promethazine HCl [From Phenergan] Allergy (Verified 10/23/19 17:27) Hives aspirin Adverse Reaction (Verified 10/23/19 17:27) Upset Stomach CT DYE Allergy (Uncoded 10/23/19 17:27) Anaphylaxis IV contrast Allergy (Uncoded 10/23/19 17:27) Anaphylaxis Primary Care Physician: Marcelino Albert MD [Primary Care Provider] - Prior records reviewed: Yes Surgical History: cholecystectomy, hysterectomy, - - Oophorectomy Lives: - - Patient is single Smoking Status: Current every day smoker Alcohol: None Drugs: None Review of Systems General: Denies: Chills, Fever, Malaise, Subjective, Sweats, Weight loss, - Cardiovascular: Denies: Chest pain, Palpitations Respiratory: Denies: Dyspnea, Cough, Dyspnea on exertion Gastrointestinal: Reports: Abdominal pain. Denies: Nausea, Vomiting, Diarrhea, Constipation, Melena, Hematochezia, -, - Genitourinary: Reports: Dysuria, Frequency. Denies: Hematuria, -, - Musculoskeletal: Reports: Back pain. Denies: Myalgias, Arthralgias, Neck pain, Swelling, Extremity Pain, -, - Skin: Denies: Rash, Wounds Neurological: Denies: Headache, Weakness, Numbness Hematologic: Denies: Easy bruising, Easy bleeding Allergy: Denies: Uticaria, Swelling of the mouth Physical Exam Vital Signs/Narrative: Vital Signs Temp Pulse Resp BP Pulse Ox 10/23/19 17:23 98.5 F 88 16 115/80 99 Inital Vital Signs reviewed: Yes General: Well nourished, Well developed, Obese, No Acute Distress Head: Normocephalic, Atraumatic. Negative for: Trauma, Tenderness Eyes: Perrl, EOMI. Negative for: Pale conjunctiva, Scleral icterus ENT: Moist mucous membranes, No rhinorrhea Neck: Supple, Nontender, No lymphadenopathy, No JVD Cardiovascular: Regular rate, Regular rhythm, No murmurs, Normal S1, Normal S2 Respiratory: No distress, CTA bilaterally, Chest nontender Abdomen: Soft, Nondistended, Normal bowel sounds, No masses, Tender - Left lower quadrant suprapubic region. Negative for: Guarding, Rebound tenderness, Hyperactive bowel sounds, Hypoactive bowel sounds, Hepatomegaly, Splenomegaly, Mass, Ventral hernia, Inguinal hernia, Umbilical hernia Rectal: Deferred Back: Nontender, Normal Inspection. Negative for: CVA tenderness Extremities: Nontender, No edema Skin: Normal color, No rash Neurological: Alert, Oriented x3, Cranial nerves II-XII grossly intact, Normal Strength, Normal Sensation Psychological: Depressed Diagnostic/Tx/Re-eval Laboratory Results 10/23/19 10/23/19 10/23/19 17:26 17:26 17:40 WBC 9.1 RBC 4.15 L Hgb 12.5 Hct 38.6 MCV 93.0 MCH 30.1 MCHC 32.4 RDW Std Deviation 43.8 RDW Coeff of Shun 13.0 Plt Count 280 MPV 10.3 Immature Gran % (Auto) 1.100 H Neut % (Auto) 51.3 Lymph % (Auto) 37.1 [place] % (Auto) 4.1 Eos % (Auto) 5.4 H Baso % (Auto) 1.0 Absolute Neuts (auto) 4.7 Absolute Lymphs (auto) 3.38 Nucleated RBC % 0 Sodium 141 Potassium 3.4 L Chloride 109 H Carbon Dioxide 28.0 Anion Gap 4 L BUN 23 H Creatinine 1.11 H Estim Creat Clear Calc 50.84 Est GFR (MDRD) Af Amer 70 Est GFR (MDRD) Non-Af 58 L BUN/Creatinine Ratio 20.7 H Glucose 85 Calcium 9.4 Urine Color Yellow Urine Clarity Sl. Cloudy Urine pH 5.0 Ur Specific [place] 1.030 Urine Protein 15 H Urine Glucose (UA) Normal Urine Ketones 5 H Urine Occult Blood 25 H Urine Nitrite Negative Urine Bilirubin Negative Urine Urobilinogen Normal Ur Leukocyte Esterase 25 H Urine RBC 0-5 SEEN Urine WBC 0-5 SEEN Ur Squamous Epith Cells 5-10 SEEN Urine Bacteria 0 SEEN Urine Mucus 0 SEEN His work-up is unremarkable. There is no evidence of urinary tract infection. With recent CAT scan revealing no stones on the left side she was informed this is not the cause of her left-sided pain. Internal exam is unremarkable/inconsistent and her work-up is unremarkable she was discharged home. - Medical Decision Making Prior records were reviewed. With history of kidney stone on the right and now complaining of left-sided pain with dysuria and frequency suspect patient has urinary tract infection. Since there is no CVA tenderness doubt pyelonephritis. Since she is status post surgery will obtain baseline blood work and UA. Since she has a care plan Toradol was ordered. She lists allergy. Presently she was given no medicine for pain. Was reassessed at 1805. She was informed of results. She was informed the cause of her pain is unknown. She had no questions; therefore, she was discharged home ED Disposition - Plan for ED Patient: Disposition: Home or Assisted Living Diagnosis: Left lower quadrant abdominal pain Instructions: ABDOMINAL PAIN, Unknown Cause, (Female) Referrals: Marcelino Albert MD [Primary Care Provider] - 3-5 Days if not improving
[2019-10-23 17:46] LABS: Absolute Lymphocyte Count 3.38 X10^3/uL (0.83-4.51); Absolute Neutrophil Count 4.7 X10^3/uL (2.0-7.7); Basophil# 0.09 X10^3/uL; Eosinophil# 0.49 X10^3/uL; Eosinophils% 5.4 % (0-5); Hematocrit 38.6 % (37-47); Hemoglobin 12.5 g/dL (12.0-15.0); Lymphocyte # 3.38 X10^3/ul (4.0); Lymphocyte % 37.1 % (19-41); Mean Corp Hgb Conc 32.4 g/dL (32-36); Mean Corpuscular Hgb 30.1 pg (27.0-32.0); Mean Platelet Vol. 10.3 fl (6.2-12.0); Monocyte# 0.37 X10^3/uL; Monocyte% 4.1 % (0-10); NRBC Flagged by Analyzer 0 % (0-5); Neutrophil # 4.67 X10^3/uL (2.7-7.7); Neutrophil % 51.3 % (47-70); Platelet Count 280 K/mm3 (150-450); RBC Distribution Width SD 43.8 fl (35.1-43.9); Red Blood Count 4.15 M/mm3 (4.2-5.4); White Blood Count 9.1 K/mm3 (4.4-11.0)
[2019-10-23 17:47] LABS: Bacteria 0 SEEN /hpf (None Seen); Mucous, Urine 0 SEEN /hpf (<or=2+)
[2019-10-23 17:49] LABS: Color, Urine Yellow (Yellow); Glucose, Dipstick Normal (Normal); Ketone-Dipstick 5 mg/dl (Negative); Leukocyte Esterase-Dipstick 25 /ul (Negative); Nitrite-Dipstick Negative (Negative); Occult Blood-Urine 25 /ul (Negative); Protein-Dipstick 15 mg/dl (Negative); Urine Bilirubin Dipstick Negative (Negative); Urine Clarity Sl. Cloudy (Clear); Urine Urobilinogen Normal (Normal)
[2019-10-23 17:50] LABS: Anion Gap 4 (5-15); BUN 23 mg/dL (7-18); BUN/Creat Ratio 20.7 RATIO (10-20); Calcium,Total 9.4 mg/dL (8.5-10.1); Chloride 109 mmol/L (98-107); Creatinine, Serum 1.11 mg/dL (0.55-1.02); EST Glomerular Filtration Rate 58 mL/min (>60); Est Glom Filt Rate - Afr Amer 70 mL/min (>60); Estimated Creatinine Clearance 50.84 ml/min; Glucose 85 mg/dL (74-106); Potassium 3.4 mmol/L (3.5-5.1); Sodium Level 141 mmol/L (136-145)
[2019-10-23 17:57] LABS: Red Blood Cells-Urine 0-5 SEEN /hpf (0-5); Squamous Epithelial Cells - UA 5-10 SEEN /hpf (5-10); White Blood Cells 0-5 SEEN /hpf (0-5)
[2019-10-23 18:10] VITALS: RESP 16
== END 2019-10-23 18:10 | disposition home or self-care (01) ==
PROVIDERS: Emergency Provider Emergency Medicine; PCP Family Medicine
DX: R10.32 Left lower quadrant pain (principal); E78.00 Pure hypercholesterolemia, unspecified; Z87.442 Personal history of urinary calculi; Z85.42 Personal history of malignant neoplasm of other parts of uterus; F17.200 Nicotine dependence, unspecified, uncomplicated; Z88.0 Allergy status to penicillin; Z88.1 Allergy status to other antibiotic agents; Z88.6 Allergy status to analgesic agent; Z88.8 Allergy status to other drugs, medicaments and biological substances; Z90.49 Acquired absence of other specified parts of digestive tract; Z90.710 Acquired absence of both cervix and uterus
CPT/HCPCS: 80048; 81001; 85025; 99283; A4216

== ENCOUNTER 2019-11-09 13:04 | Emergency (ER) | payer MEDICAID, SELFPAY ==
[2019-11-09 13:05] VITALS: BP 134/79; PULSE 94; RESP 15; TEMP 36.8; O2SAT 98; BMI 36.7
[2019-11-09 13:38] LABS: Red Blood Cells-Urine 0 SEEN /hpf (0-5)
[2019-11-09 13:44] LABS: Color, Urine Yellow (Yellow); Glucose, Dipstick Normal (Normal); Ketone-Dipstick Negative (Negative); Leukocyte Esterase-Dipstick 100 /ul (Negative); Nitrite-Dipstick Negative (Negative); Occult Blood-Urine 10 /ul (Negative); Protein-Dipstick 15 mg/dl (Negative); Urine Bilirubin Dipstick Negative (Negative); Urine Clarity Sl. Cloudy (Clear); Urine Urobilinogen Normal (Normal)
[2019-11-09 13:54] LABS: Bacteria 1+ /hpf (None Seen); Mucous, Urine 2+ /hpf (<or=2+); Squamous Epithelial Cells - UA 5-10 SEEN /hpf (5-10); White Blood Cells 0-5 SEEN /hpf (0-5)
--- NOTE | 2019-11-09 15:32 | ED.DCSUM_ITS ---
- ER Visit Summary Date of Service: 11/09/19 Chief Complaint: Left lower quadrant and left flank pain History of Present Illness: The patient is a 39 F who has left flank and left lower quadrant pain. Started yesterday. She complains of sharp pains in these areas. She has a history of kidney stones and is concerned about this. She felt nauseous. She denies fevers but she has had some dysuria. She has surgery in September on her ovaries by Dr. Palacios at [facility]. She tried ibuprofen at home without any relief. She was seen here on October 23 with similar symptoms and had a negative work-up at that time. The patient does have a care plan due to many ER visits for similar symptoms. Physical Examination: Vital signs reviewed. HEENT exam unremarkable. Heart is regular rate and rhythm without murmurs. Lungs are clear to auscultation. Abdomen is soft with tenderness when you touch her adipose tissue on the left- hand side of her abdomen. No CVA tenderness. Extremities reveal no edema. Skin exam normal. Neurologic exam normal. Test Results: Urinalysis reveals no evidence of significant infection or blood. Emergency Department Course and Treatment: Patient given Tylenol for pain. She has a care plan but states no narcotics. She states that she is allergic to Toradol. She has no significant blood in her urine so I do not feel this is a kidney stone. She does have some mild white cells I will give her 3 days of antibiotics. She will continue Tylenol and ibuprofen at home. She had lab work about 2 weeks ago which was unremarkable. She has been seen here many times for this type of pain so I do not feel a CAT scan is needed at this time. Treatment Plan: [] Disposition: Discharge Impression: Left side abdominal pain This note was generated with [employer] dictation software. It may contain incorrect words, spelling, and punctuation that were not noted in review of the chart prior to signing ED Disposition - Plan for ED Patient: Disposition: Home or Assisted Living Instructions: FLANK PAIN, Uncertain Cause Prescriptions: Ciprofloxacin [Cipro] 500 mg PO BID #6 tab Transmission Status: Pending to [facility]/pharmacy #[id number] Referrals: Marcelino Albert MD [Primary Care Provider] -
--- NOTE | 2019-11-09 15:40 | CM.ED ---
SOCIAL WORK REASON FOR REFERRAL: ED CARE PLAN-ACTIVE COLLABORATION WITH DR. GUZMÁN. UPDATED ON ACTIVE ED CARE PLAN AND REVIEWED. INFORMED DR. GUZMÁN THE RESOURCES AND COPY OF ED CARE PLAN WERE MAILED TO PATIENT VIA CERTIFIED MAIL AND RETURNED. THIS WORKER TO PROVIDE PATIENT WITH COPY OF ED CARE PLAN AND RESOURCES. MET WITH PATIENT IN ROOM. INTRODUCED ROLE AND REASON FOR REFERRAL. DISCUSSED ED CARE PLAN. INFORMED PATIENT A COPY OF ED CARE PLAN WAS SENT TO PATIENT VIA CERTIFIED MAIL AND WAS RETURNED. PATIENT VERIFIED ADDRESS IS CORRECT. PATIENT PROVIDED WITH COPY OF ED CARE PLAN AND RESOURCES THAT WERE MAILED TO PATIENT. EDUCATED PATIENT ON REASONS FOR ED CARE PLAN. DISCUSSED MENTAL HEALTH. PATIENT STATES NO LONGER FOLLOWS WITH THE COUNSELING CENTER D/T ISSUES WITH SEROQUEL. PATIENT DENIES ANY NEEDS FOR COUNSELING AT THIS TIME. PATIENT VERBALIZED UNDERSTANDING OF ED CARE PLAN. THIS WORKER TO REMAIN AVAILABLE FOR NEEDS. Shana APPIAH, CANVAS REPAIRER, REHABILITATION TECHNICIAN.
[2019-11-09] MEDS: Acetaminophen 500 MG Tablet 1000 MG PO (15:47)
[2019-11-09 15:49] VITALS: BP 107/53; PULSE 81; RESP 18; O2SAT 99
[2019-11-09 16:09] VITALS: BP 105/50; PULSE 82; RESP 16; O2SAT 98
== END 2019-11-09 16:10 | disposition home or self-care (01) ==
PROVIDERS: Emergency Provider Emergency Medicine; PCP Family Medicine
DX: R10.32 Left lower quadrant pain (principal); Z87.442 Personal history of urinary calculi; R30.0 Dysuria; R11.0 Nausea
CPT/HCPCS: 81001; 99284; A4216

== ENCOUNTER → 2019-11-18 13:13 | Outpatient (CLI) | payer MEDICAID, SELFPAY ==
[2019-11-09 13:05] VITALS: BMI 36.7
[2019-11-18 13:33] LABS: Absolute Lymphocyte Count 2.89 X10^3/uL (0.83-4.51); Absolute Neutrophil Count 4.4 X10^3/uL (2.0-7.7); Basophil# 0.05 X10^3/uL; Basophil% 0.6 % (0-1); Eosinophil# 0.38 X10^3/uL; Eosinophils% 4.5 % (0-5); Hematocrit 35.9 % (37-47); Hemoglobin 11.6 g/dL (12.0-15.0); Lymphocyte # 2.89 X10^3/ul (4.0); Lymphocyte % 34.6 % (19-41); Mean Corp Hgb Conc 32.3 g/dL (32-36); Mean Corpuscular Hgb 30.1 pg (27.0-32.0); Mean Platelet Vol. 10.1 fl (6.2-12.0); Monocyte# 0.51 X10^3/uL; Monocyte% 6.1 % (0-10); NRBC Flagged by Analyzer 0 % (0-5); Neutrophil # 4.44 X10^3/uL (2.7-7.7); Neutrophil % 53.1 % (47-70); Platelet Count 247 K/mm3 (150-450); RBC Distribution Width CV 12.9 % (11.6-14.6); RBC Distribution Width SD 43.4 fl (35.1-43.9); Red Blood Count 3.86 M/mm3 (4.2-5.4); White Blood Count 8.4 K/mm3 (4.4-11.0)
[2019-11-18 13:59] LABS: ALB/GLOB Ratio 0.9 RATIO (0.9-2.4); AST(SGOT) 13 U/L (15-37); Alanine Aminotransfer ALT/SGPT 21 U/L (13-56); Albumin, Serum 3.7 g/dL (3.2-5.0); Alkaline Phosphatase 117 U/L (45-117); Anion Gap 4 (5-15); BUN 13 mg/dL (7-18); BUN/Creat Ratio 13.2 RATIO (10-20); Calcium,Total 8.9 mg/dL (8.5-10.1); Chloride 110 mmol/L (98-107); Creatinine, Serum 0.99 mg/dL (0.55-1.02); EST Glomerular Filtration Rate 66 mL/min (>60); Est Glom Filt Rate - Afr Amer 80 mL/min (>60); Globulin 4.1 g/dL (2.2-4.2); Glucose 88 mg/dL (74-106); Protein, Total 7.8 g/dL (6.4-8.2); Sodium Level 140 mmol/L (136-145); Thyroid Stim Hormone (TSH) 1.84 uIU/mL (0.358-3.74)
== END ==
PROVIDERS: PCP Family Medicine; Referring Provider Physician Assistant; Visit Provider Physician Assistant
DX: R06.02 Shortness of breath (principal); R07.9 Chest pain, unspecified; I45.10 Unspecified right bundle-branch block; R53.83 Other fatigue
CPT/HCPCS: 36415; 80053; 84443; 84484; 85025; 85379

== ENCOUNTER 2019-11-18 14:35 | Emergency (ER) | payer MEDICAID, SELFPAY ==
[2019-11-18 14:35] VITALS: O2SAT 98
[2019-11-18 14:38] VITALS: BP 146/76; PULSE 93; RESP 18; TEMP 36; O2SAT 99; BMI 35.6
--- NOTE | 2019-11-18 15:08 | CT_ITS ---
STUDY: CTA CHEST REASON FOR EXAM: Female, 39 years old. DYSPNEA. Prior cholecystectomy and hysterectomy. Pt pre-medicated for iodine allergy, did fine with injection RADIATION DOSAGE (If Supplied By Facility): CTDIvol = ( 11.40 ) mGy, DLP = ( 497.76 ) mGycm TECHNIQUE: The examination was performed with the intravenous administration of Isovue 300 100ml. Post-processing of the angiographic images was performed, with multiplanar reformation and 3D reconstruction. Individualized dose optimization techniques were used for this CT. COMPARISON: Abdomen and pelvic CT exam of February 19, 2019 FINDINGS: Normal enhancement of the main pulmonary artery and right and left pulmonary arteries. Normal enhancement of the bilateral peripheral pulmonary arteries. There is no demonstrated pulmonary embolism. Normal thoracic aorta and visualized great vessels. There is no demonstrated aortic dissection. Normal heart and pericardium. Normal mediastinum. Normal hilar regions. Normal visualized trachea and bronchi. Mild posterior bibasilar atelectasis. Minimal groundglass change posterior medial right lower lobe. 5 x 3 x 2 mm noncalcified nodule of the anterior right upper lobe. 4 x 4 by 2 mm noncalcified left upper lobe nodule. Normal pleura. There are no pleural effusions. Normal chest wall structures. Normal osseous structures. Multiple simple cysts of the liver. The largest cyst is in the posterior right upper lobe and measures 7.2 x 9.3 x 6.6 cm. Status post cholecystectomy. CT/CTA Chest W/WO Contrast IMPRESSION: Negative for pulmonary embolus. Normal thoracic aorta. Normal heart size without pericardial effusion or coronary calcifications. Normal mediastinum. Mild symmetric posterior atelectasis. Minimal groundglass change posterior medial right lower lobe. Early pneumonic infiltrate versus broader area of generalized atelectasis. Negative for pleural effusion. 5 x 3 x 2 mm noncalcified nodule of the anterior right upper lobe and a 4 x 4 by 2 mm noncalcified nodule of the left upper lobe. 4 nodules of this size consider 12 month follow-up in a low risk patient. 6-12 month follow-up and 8-24 month follow-up in a high risk patient. Numerous simple hepatic cysts not substantially changed from prior examination of February 19, 2019. No additional follow-up recommended. Status post cholecystectomy. Electronically Signed: Shannan Newman MD at 17:39 EST , Service support ,
--- NOTE | 2019-11-18 15:11 | ED.VISSUMM ---
- ER Visit Summary Date of Service: 11/18/19 Chief Complaint: [Dyspnea] History of Present Illness: The patient is a 39 F [presents the emergency department complaint shortness of breath she said for about 5 days. Patient complains of fatigue and lightheadedness. She complains of chest discomfort/pressure. Patient had surgery 6 weeks ago to have some cyst removed off of her ovaries. Patient was seen by PCP today and had blood work as well as a chest x-ray. Patient was called and told she needed to come to the emergency department for concern of blood clots. She apparently had an elevated d-dimer. Patient denies any fever or cough. She denies runny nose. No family history of heart disease. No history of blood clots. No recent travel. Patient also has history of kidney stones. She is had prior surgeries including cholecystectomy, hysterectomy, bilateral oophorectomy.] Physical Examination: [HEENT-PERRLA, EOMI. Cranial nerves II through XII grossly intact. TMs clear. Mucous membranes moist. No adenopathy. Cardiovascular-regular rate and rhythm without murmur or ectopy Lungs-clear to auscultation, chest wall stable without crepitus or subcu emphysema Abdomen-normoactive bowel sounds, soft, nontender, no rebound or rigidity, no peritoneal signs. Extremities-intact ?4, normal range of motion, normal pulses, atraumatic] Test Results: [Blood work performed earlier today showed a white blood cell count of 8.4, hemoglobin 11.6, hematocrit 36, platelet 247. Chemistries were unremarkable. Troponin was less than 0.015. D-dimer was 1.10. TSH was 1.84.] CTA of the chest obtained showed no evidence of PE or dissection. Patient had some groundglass opacities noted in the right middle lobe which could not rule out early infiltrate versus atelectasis. Emergency Department Course and Treatment: She was treated with Levaquin 750 mg p.o. [prior to CT patient received Solu-Medrol and Benadryl.] Treatment Plan: [Patient will be treated with Levaquin for 5 days. Patient advised to follow-up with primary care physician 3 to 5 days.] Disposition: [Discharged home in stable condition] Impression: [Pneumonia Dyspnea] This note was generated with [employer] software. It may contain incorrect words, spelling, and punctuation that were not noted in review of the chart prior to signing ED Disposition - Plan for ED Patient: Referrals: Marcelino Albert MD [Primary Care Provider] -
[2019-11-18] MEDS: DiphenhydrAMINE 50 MG/ML Syringe 25 MG IV (16:01)
[2019-11-18] MEDS: MethylPREDNISolone 125 MG/2 ML Vial IV (16:02)
[2019-11-18] MEDS: Ondansetron 4 MG/2 ML Vial IV (16:08)
[2019-11-18] MEDS: Morphine 4 MG/ML Syringe IV (16:08)
--- NOTE | 2019-11-18 17:58 | DCINST.ED_ITS ---
ED Disposition - Plan for ED Patient: Instructions: PNEUMONIA (Adult) Prescriptions: Levofloxacin [Levaquin] 750 mg PO DAILY #4 tab Transmission Status: Pending to [facility]/pharmacy #[id number] Referrals: Marcelino Albert MD [Primary Care Provider] - 3-5 Days
--- NOTE | 2019-11-18 17:58 | ED.DEP ---
ED Disposition - Plan for ED Patient: Instructions: PNEUMONIA (Adult) Prescriptions: Levofloxacin [Levaquin] 750 mg PO DAILY #4 tab Transmission Status: Pending to [facility]/pharmacy #[id number] Referrals: Marcelino Albert MD [Primary Care Provider] - 3-5 Days
[2019-11-18 18:17] VITALS: BP 120/72; PULSE 77; RESP 18; O2SAT 95
[2019-11-18] MEDS: levoFLOXacin 750 MG Tablet PO (18:17)
== END 2019-11-18 18:19 | disposition home or self-care (01) ==
LOC: ED 15:38
PROVIDERS: Emergency Provider Emergency Medicine; PCP Family Medicine
DX: J18.9 Pneumonia, unspecified organism (principal); R79.89 Other specified abnormal findings of blood chemistry; Z87.442 Personal history of urinary calculi; Z90.49 Acquired absence of other specified parts of digestive tract; Z90.710 Acquired absence of both cervix and uterus
CPT/HCPCS: 36415; 71275; 80053; 84443; 84484; 85025; 85379; 96374; 96375; 99283; Q9967; A4216; J2405

== ENCOUNTER 2019-11-19 13:17 | Emergency (ER) | payer MEDICAID, SELFPAY ==
[2019-11-18 14:38] VITALS: BMI 35.6
[2019-11-19 13:17] VITALS: BP 122/66; BP 132/74; PULSE 88; RESP 16; RESP 19; TEMP 37; O2SAT 100; BMI 37.2
--- NOTE | 2019-11-19 13:35 | EKG12_ITS ---
Test Reason : CP Blood Pressure : / mmHG Vent. Rate : 091 BPM Atrial Rate : 091 BPM P-R Int : 156 ms QRS Dur : 092 ms QT Int : 358 ms P-R-T Axes : 060 -25 012 degrees QTc Int : 440 ms Normal sinus rhythm Incomplete right bundle branch block Nonspecific T wave abnormality Abnormal ECG Confirmed by GAB ALVARADO, GALEN ([id number]), publishing editor PATRICIA SHARMA ([id number] on 11/21/2019 3:14:05 PM Referred By: DAT Confirmed By:GALEN DE GUZMAN MD
[2019-11-19] MEDS: Acetaminophen 500 MG Tablet 1000 MG PO (13:44)
[2019-11-19] MEDS: 0.9% Normal Saline 1,000 ML 1000 ML IV (13:45)
--- NOTE | 2019-11-19 13:45 | RAD_ITS ---
STUDY: X-RAY CHEST REASON FOR EXAM: Female, 39 years old patient with chest pain recently passed out. Patient has shortness of breath. TECHNIQUE: Single AP portable view of the chest. COMPARISON: July 31, 2017. FINDINGS: Cardiac monitoring leads are present. The lungs are clear and expanded. There is no demonstrated pleural abnormality. There is borderline cardiomegaly. Normal mediastinum and [place]. There is prominence of the pulmonary hilar arteries without peripheral pulmonary vascular congestion. Normal visualized aortic arch and descending thoracic aorta. Normal visualized thoracic spine. Normal visualized ribs, clavicles, and shoulders. There is no demonstrated abnormality of the visualized soft tissue structures of the upper abdomen. RAD/Chest 1 View (Portable) IMPRESSION: Borderline cardiomegaly without evidence of acute cardiopulmonary disease. Electronically Signed: Brittany Duenas MD at 14:59 EST , Service support ,
[2019-11-19 14:02] LABS: Basophil# 0.04 X10^3/uL; Basophil% 0.2 % (0-1); Hematocrit 35.2 % (37-47); Hemoglobin 11.2 g/dL (12.0-15.0); Lymphocyte % 8.5 % (19-41); Mean Corp Hgb Conc 31.8 g/dL (32-36); Mean Corpuscular Hgb 29.4 pg (27.0-32.0); Mean Corpuscular Volume 92.4 fL (81-99); Mean Platelet Vol. 10.7 fl (6.2-12.0); NRBC Flagged by Analyzer 0 % (0-5); Neutrophil # 17.01 X10^3/uL (2.7-7.7); Neutrophil % 84.5 % (47-70); Platelet Count 284 K/mm3 (150-450); RBC Distribution Width CV 13.1 % (11.6-14.6); Red Blood Count 3.81 M/mm3 (4.2-5.4); White Blood Count 20.1 K/mm3 (4.4-11.0)
[2019-11-19] MEDS: Ondansetron 4 MG/2 ML Vial IV (14:13)
[2019-11-19 14:19] LABS: Anion Gap 5 (5-15); BUN 21 mg/dL (7-18); BUN/Creat Ratio 18.6 RATIO (10-20); Calcium,Total 9.5 mg/dL (8.5-10.1); Chloride 111 mmol/L (98-107); Creatinine, Serum 1.13 mg/dL (0.55-1.02); EST Glomerular Filtration Rate 57 mL/min (>60); Est Glom Filt Rate - Afr Amer 69 mL/min (>60); Estimated Creatinine Clearance 49.94 ml/min; Glucose 125 mg/dL (74-106); Potassium 3.7 mmol/L (3.5-5.1); Sodium Level 140 mmol/L (136-145)
--- NOTE | 2019-11-19 15:21 | ED.VISSUMM ---
- ER Visit Summary Date of Service: 11/19/19 Chief Complaint: Chest pain History of Present Illness: The patient is a [address] Albert. She was seen in the emergency department yesterday and had a CT of the chest that showed pneumonia. She was discharged on Levaquin. She reports that she has had constant chest pain since that time. It is 10 out of 10 in severity. She describes it as sharp. Nothing makes this worse including exertion or deep breaths. She was given nitro by EMS on the way to the emerge department without relief. She reports that nothing makes this better either. She reports has been nauseated and short of breath. She had chills, but denies fever. She complains of a headache a 7 out of 10 severity. She has a history of similar headaches. Physical Examination: Vitals: Stable. Afebrile. General: Well-nourished and well-developed. Head: Normocephalic atraumatic. Neck: Supple, no lymphadenopathy. No JVD. Nontender. Cardiovascular: Regular rate and rhythm. No murmurs. Respiratory: No respiratory distress. Clear to auscultation bilaterally. Abdominal: Soft, nontender, nondistended, normal bowel sounds. No guarding, rebound, or peritoneal signs. Back: Nontender. Extremities: Nontender, no edema. Skin: Normal color, no rash. Neurologic: Alert and oriented ?3. Cranial nerves II through XII are intact. Normal strength and sensation. Psych: Normal affect. Test Results: EKG is sinus at 91 with an incomplete right bundle branch block and nonspecific ST changes. Troponin is negative despite greater than 12 hours of constant pain. Chem-7 shows a chloride of 111, BUN 21, creatinine 1.13, glucose 125. CBC shows a white count of 20.1, H&H 11.2 35.2, 7 neutrophils 85, lymphocytes of 9. Chest x-ray shows borderline cardiomegaly. Emergency Department Course and Treatment: Patient was given dose of Zofran IV she was given Tylenol p.o. She is already taken a dose of Levaquin today. Her white count has increased from yesterday. She was given a dose of Solu-Medrol IV yesterday. However, I do not think that this is the cause of her increased white count. Treatment Plan: Other than the increase in the patient's white count everything else is unremarkable. Her pneumonia severity index score is 30. She is not hypoxic or tachycardic. I think that she is a reasonable candidate continue the Levaquin at home. She is instructed to push fluids. Use Tylenol and/or ibuprofen for pain. Follow-up with her primary care physician in 3 to 5 days for another exam. Return to the emergency department for any worsening symptoms. Disposition: To home in improved and stable condition. Impression: 1. Atypical chest pain. 2. Leukocytosis. 3. Pneumonia. 4. ED care plan. This note was generated with [employer] software. It may contain incorrect words, spelling, and punctuation that were not noted in review of the chart prior to signing ED Disposition - Plan for ED Patient: Disposition: Home or Assisted Living Instructions: PNEUMONIA (Adult) Prescriptions: Albuterol Inhaler [Ventolin Hfa] 2 puff INHALATION Q4H PRN PRN #1 inhaler PRN Reason: Wheezing Prescription Printed Ondansetron [Zofran Odt] 4 mg PO Q8H PRN PRN #10 tab PRN Reason: Nausea Prescription Printed Referrals: Marcelino Albert MD [Primary Care Provider] - 3-5 Days if not improving
[2019-11-19 15:30] VITALS: BP 127/76; PULSE 90; RESP 16; O2SAT 98
== END 2019-11-19 15:31 | disposition home or self-care (01) ==
LOC: ED 13:30
PROVIDERS: Emergency Provider Emergency Medicine; PCP Family Medicine
DX: R07.89 Other chest pain (principal); D72.829 Elevated white blood cell count, unspecified; J18.9 Pneumonia, unspecified organism; I45.10 Unspecified right bundle-branch block; R51 Headache; F17.210 Nicotine dependence, cigarettes, uncomplicated; Z87.442 Personal history of urinary calculi
CPT/HCPCS: 71045; 80048; 84484; 85025; 93005; 96361; 96374; 99285; J7030; J2405

== ENCOUNTER → 2019-11-24 10:53 | Outpatient (CLI) | payer MEDICAID, SELFPAY ==
[2019-11-19 13:17] VITALS: BMI 37.2
[2019-11-24 11:55] LABS: D-Dimer Quantitative (DVT/PE) 1.14 FEU/ug/m (0.27-0.49)
== END ==
PROVIDERS: PCP Family Medicine; Referring Provider Physician Assistant; Visit Provider Physician Assistant
DX: R53.83 Other fatigue (principal); R06.02 Shortness of breath; R07.9 Chest pain, unspecified
CPT/HCPCS: 84484; 85379

== ENCOUNTER 2019-12-09 14:37 | Emergency (ER) | payer MEDICAID, SELFPAY ==
[2019-12-09 14:39] VITALS: BP 115/75; PULSE 81; RESP 18; TEMP 36.8; O2SAT 100; BMI 40.8
--- NOTE | 2019-12-09 14:51 | VDLE_ITS ---
Reason For Study: Pain Procedure LEFT Exam performed portable in ED. GSV is normal. A preliminary report was called and/or faxed CFV is compressible, spontaneous, phasic, to ED RN. competent, and demonstrates normal augmentation. FV is compressible, spontaneous, phasic, competent and demonstrates normal augmentation. POP V is compressible, spontaneous, phasic, competent and demonstrates normal augmentation. T/P Trunk is compressible. PTV is compressible. LT PerV is compressible. Interpretation Summary There is no evidence of left lower extremity deep vein thrombosis. Left great saphenous vein appears patent and compressible segmentally. Ordering Physician: Kirit Colby Referring Physician: Marcelino Albert Performed By: Rupal Gayle RVT
--- NOTE | 2019-12-09 14:52 | ED.DCSUM_ITS ---
History of Present Illness Chief Complaint: Lower Extremity Injury Narrative: This patient is a 39-year-old female who presents with left leg pain. She noted some mild swelling of her left leg last night. She called her primary care physician's office who advised her to go to the emergency department for evaluation. She initially did not present. However today her significant other commented that her leg appeared red. She has also developed some pain in the calf. She also was recently treated for pneumonia although she notes the symptoms are actually improving. She occasionally feels like I need to take a deep breath. However this is improved with her inhaler and she is not currently dyspneic. She does not have chest pain. She otherwise denies any fevers vomiting diarrhea. She has no history of DVT or pulmonary embolism. No recent travel or immobilization although she was hospitalized for 2 days in September for a surgical procedure. She states she had to have cysts removed at [facility]. She also complains of some numbness of her leg along the anterior leg from knee to ankle. Past Medical History - Allergies and Home Meds Allergies/Adverse Reactions: Allergies ketorolac tromethamine [From Toradol] Allergy (Verified 12/09/19 14:44) Rash metronidazole [From Flagyl] Allergy (Verified 12/09/19 14:44) Hives Penicillins Allergy (Verified 12/09/19 14:44) Hives promethazine HCl [From Phenergan] Allergy (Verified 12/09/19 14:44) Hives aspirin Adverse Reaction (Verified 12/09/19 14:44) Upset Stomach CT DYE Allergy (Uncoded 12/09/19 14:44) Anaphylaxis IV contrast Allergy (Uncoded 12/09/19 14:44) Anaphylaxis Primary Care Physician: Marcelino Albert MD [Primary Care Provider] - Past Medical History: - - Migraines, anxiety Surgical History: cholecystectomy, hysterectomy, - - Oophorectomy Smoking Status: Current every day smoker Review of Systems All systems negative except as indicated General: Denies: Fever Eyes: Denies: Visual changes - bilaterally ENT: Denies: Bilateral ear pain Cardiovascular: Denies: Chest pain Respiratory: Denies: Dyspnea Gastrointestinal: Denies: Nausea, Vomiting, Diarrhea Musculoskeletal: Reports: - - Left calf pain, left leg edema, left leg paresthesias Skin: Denies: Rash Neurological: Denies: Headache Physical Exam Vital Signs/Narrative: Vital Signs Temp Pulse Resp BP Pulse Ox 12/09/19 14:39 98.2 F 81 18 115/75 100 Inital Vital Signs reviewed: Yes General: Well nourished Head: Normocephalic Eyes: EOMI ENT: Moist mucous membranes Neck: Supple Cardiovascular: Regular rate, Regular rhythm Respiratory: No distress, Wheezing - Scattered end expiratory wheezing, - - No distress able to speak in full sentences does not appear dyspneic Abdomen: Soft, Nontender Extremities: - - Normal examination of the extremities, I am unable to appreciate any edema, no pitting edema. She does not have reproducible calf tenderness, she has easily palpable and symmetric dorsalis pedis pulses with brisk capillary refill and her sensation is intact to light touch Skin: Normal color Neurological: Alert Psychological: Normal affect Diagnostic/Tx/Re-eval - Medical Decision Making Venous duplex is negative. Patient was advised on supportive care and discharged home. ED Disposition - Plan for ED Patient: Disposition: Home or Assisted Living Diagnosis: Leg pain, left Instructions: ED ACHING MUSCLES Referrals: Marcelino Albert MD [Primary Care Provider] -
== END 2019-12-09 15:15 | disposition home or self-care (01) ==
PROVIDERS: Emergency Provider Emergency Medicine; PCP Family Medicine
DX: M79.605 Pain in left leg (principal); R20.0 Anesthesia of skin; F41.9 Anxiety disorder, unspecified; F17.200 Nicotine dependence, unspecified, uncomplicated; Z88.0 Allergy status to penicillin; Z88.1 Allergy status to other antibiotic agents; Z88.6 Allergy status to analgesic agent; Z88.8 Allergy status to other drugs, medicaments and biological substances; Z90.49 Acquired absence of other specified parts of digestive tract; Z90.710 Acquired absence of both cervix and uterus; Z87.01 Personal history of pneumonia (recurrent)
CPT/HCPCS: 93971; 99284

== ENCOUNTER 2020-01-04 22:45 | Emergency (ER) | payer MEDICAID, SELFPAY ==
[2019-12-14 09:20] VITALS: BMI 37.0
[2020-01-04 22:46] VITALS: BP 136/84; PULSE 97; RESP 18; TEMP 36.7; O2SAT 97; BMI 37.6
--- NOTE | 2020-01-04 23:14 | ED.VISSUMM ---
- ER Visit Summary Date of Service: 01/04/20 Chief Complaint: [Fall with injury to back and right shoulder] History of Present Illness: The patient is a 39 F [presents to the emergency department with a fall that occurred in the shower today around 5 PM. Patient states that she slipped and fell in her small shower kind of against the back of the shower wall and then down to the ground. She struck her right shoulder and lower back. Patient has history of chronic back pain issues. Patient was to see pain management today but her arranged for a ride through [employer] was unable to be completed as there was no vehicle in the area. Patient had to reschedule her appointment. During the fall she denies loss of consciousness. She is had no significant neck pain. She just feels achy in her right shoulder and her low back. She denies any numbness or tingling in extremities. She denies any pain radiating down the legs. She denies loss of bowel or bladder.] Physical Examination: [HEENT-PERRLA, EOMI. Cranial nerves II through XII grossly intact. TMs clear. Mucous membranes moist. No adenopathy. No C-spine tenderness on palpation. She has mild tenderness over the right cervical paraspinal musculature. Cardiovascular-regular rate and rhythm without murmur or ectopy Lungs-clear to auscultation, chest wall stable without crepitus or subcu emphysema Abdomen-normoactive bowel sounds, soft, nontender, no rebound or rigidity, no peritoneal signs. Back exam-patient has no tenderness over the thoracic or lumbar spine. She got some tenderness over the lumbar paraspinal musculature. She has negative straight leg raises. Deep tendon reflexes are plus 2 out of 4 bilaterally at the patella and Achilles. Patient has normal 5 extension. Extremities-intact ?4, normal range of motion, normal pulses, atraumatic. Patient has some tenderness over the right trapezius with no bony tenderness over the glenohumeral joint. There is no deformity. She has normal range of motion of the glenohumeral joint.] Test Results: [Indicated] Emergency Department Course and Treatment: [] Treatment Plan: [We will be given a prescription for 10 [place] and a prescription for Flexeril. Patient advised to follow-up with her primary care physician and reschedule her pain management appointment.] Disposition: [Discharged home in stable condition] Impression: [Chemical fall Contusion back Contusion right shoulder] This note was generated with [employer] dictation software. It may contain incorrect words, spelling, and punctuation that were not noted in review of the chart prior to signing ED Disposition - Plan for ED Patient: Referrals: Isabel Arias PA [Primary Care Provider] -
--- NOTE | 2020-01-04 23:16 | ED.DEP ---
ED Disposition - Plan for ED Patient: Instructions: ED Mechanical Fall, ED Contusion Back Prescriptions: cycloBENZAPRine HCl [Flexeril] 10 mg PO TID PRN #20 tab PRN Reason: Muscle Spasm Prescription Printed Hydrocodone Bitart/Apap 5-325 [[place] 5MG-325MG] 1 tab PO Q4H PRN PRN 2 Days #10 tab PRN Reason: Pain Prescription Printed Referrals: Isabel Arias PA [Primary Care Provider] - 3-5 Days
[2020-01-04 23:33] VITALS: RESP 16
== END 2020-01-04 23:36 | disposition home or self-care (01) ==
LOC: ED 23:24
PROVIDERS: Emergency Provider Emergency Medicine; PCP Physician Assistant
DX: S20.222A Contusion of left back wall of thorax, initial encounter (principal); S20.221A Contusion of right back wall of thorax, initial encounter; S40.011A Contusion of right shoulder, initial encounter; G89.29 Other chronic pain; W18.2XXA Fall in (into) shower or empty bathtub, initial encounter; Y93.9 Activity, unspecified; Y92.9 Unspecified place or not applicable; G43.909 Migraine, unspecified, not intractable, without status migrainosus; Z87.442 Personal history of urinary calculi; Z79.899 Other long term (current) drug therapy; Z87.891 Personal history of nicotine dependence
CPT/HCPCS: 99282

== ENCOUNTER 2020-01-13 22:16 | Emergency (ER) | payer MEDICAID, SELFPAY ==
[2020-01-13 22:17] VITALS: BP 144/103; PULSE 106; RESP 15; TEMP 36.6; O2SAT 97; BMI 37.5
--- NOTE | 2020-01-13 22:44 | ED.VISSUMM ---
- ER Visit Summary Date of Service: 01/13/20 Chief Complaint: Tooth pain History of Present Illness: The patient is a 39 F who has right lower dental pain. She has had this for approximately 3 weeks. She went to an urgent care a week ago and got a course of clindamycin which she has completed. She went to her dentist 3 days ago and according to her they tried to numb her up 5 times but they were unsuccessful. They referred her to an oral surgeon which she cannot get into because of her insurance. She continues to have pain in this tooth. She has tried Tylenol without any relief. She is allergic to all NSAIDs because of a previous ulcer. She does have a care plan here which restricts her narcotic usage. He has not had any fevers. It is worse when she tries to eat on that right-hand side. No facial swelling. Physical Examination: Vital signs reviewed. Mouth exam reveals no gingival abscess. She does have widespread dental decay with multiple teeth that are missing. What appears to be tooth #30 on the right lower side is severely decayed with parts of the tooth missing. It is tender to palpation. No abscesses around this area that I can see. No Benjamin's angina. She is handling secretions normally. No cervical lymphadenopathy. Test Results: None performed Emergency Department Course and Treatment: The patient is allergic to all NSAIDs, and I do not feel it would be prudent to give her narcotics. She has been trying Tylenol without relief. She has also been doing oral medications such as Orajel. I offered her to try a dental block but she states that they tried this at the dentist and it did not help so she did not want it. Other than this I have nothing else to offer her. She is already had a course of clindamycin. I do not feel adding any other antibiotics would be beneficial. I am going to refer her back to her dentist and see if she can get into an oral surgeon. Treatment Plan: [] Disposition: Discharge Impression: Odontalgia This note was generated with [employer] dictation software. It may contain incorrect words, spelling, and punctuation that were not noted in review of the chart prior to signing ED Disposition - Plan for ED Patient: Disposition: Home or Assisted Living Instructions: ED Tooth Pain Referrals: Isabel Arias PA [Primary Care Provider] -
[2020-01-13 22:55] VITALS: BP 121/83; PULSE 96; RESP 16; O2SAT 97
== END 2020-01-13 22:55 | disposition home or self-care (01) ==
LOC: ED 01-14 00:15
PROVIDERS: Emergency Provider Emergency Medicine; PCP Physician Assistant
DX: K08.89 Other specified disorders of teeth and supporting structures (principal); Z87.442 Personal history of urinary calculi; Z72.0 Tobacco use
CPT/HCPCS: 99282

== ENCOUNTER 2020-01-14 15:16 | Emergency (ER) | payer MEDICAID, SELFPAY ==
[2020-01-13 22:17] VITALS: BMI 37.5
[2020-01-14 15:17] VITALS: BP 129/80; PULSE 90; RESP 18; TEMP 36.4; O2SAT 99; BMI 38.8
--- NOTE | 2020-01-14 15:44 | EKG12_ITS ---
Test Reason : CP Blood Pressure : / mmHG Vent. Rate : 081 BPM Atrial Rate : 081 BPM P-R Int : 168 ms QRS Dur : 094 ms QT Int : 410 ms P-R-T Axes : 064 -69 010 degrees QTc Int : 476 ms Normal sinus rhythm Left axis deviation Abnormal ECG Confirmed by GAB ALVARADO, GALEN ([id number]), editor sound PATRICIA SHARMA ([id number]) on 01/17/2020 10:53:23 AM Referred By: BENJAMIN Confirmed By:GALEN DE GUZMAN MD
--- NOTE | 2020-01-14 15:47 | ED.VIS.CHEST ---
History of Present Illness Chief Complaint: Chest Pain Informant: Parent Onset: Yesterday Activity at onset: Unknown Timing: Continuous Quality: Heaviness Location: Substernal Current Severity: Severe Maximum Severity: Severe Worsened By: Movement of Arm, Movement of Torso, Palpation. Not Worsened By: Breathing Relieved By: Nothing. Not Relieved By: NTG Associated Symptoms: Dyspnea, Lightheadedness - w/ syncope. Negative for: Nausea, Vomiting, Diaphoresis, Cough, Fever, Palpitations Narrative: Patient presents with chest discomfort that is been constant for the past 2 days. She denies any coughing, fevers, other upper respiratory infection symptoms, but states the last time she had this was in November and she was diagnosed with possible pneumonia based on the results of a CT that was obtained here. She had followed up with cardiology, they did not think her discomfort was cardiac in nature, they were considering an echocardiogram as an outpatient but held off for now, so she has not had that. She states they had the police over because of a different issue, she was clutching her chest because of the discomfort, and felt lightheaded, subsequently passing out. 911 was called. Paramedics brought her here and she is now keenly alert. She was given a nitroglycerin, she says she has a headache now because of that but her chest discomfort is really no better. It is nonpleuritic. Prior Similar Symptoms: Yes, - - in November. Had CTA neg for PE, Dx'd w/ poss pneumonia. Similar discomfort now. CVD Risk Factors: Smoking PE Risk Factors: Negative for: Recent Travel/Surgery, Recenet Immobilization, Prior DVT or PE, Cancer, OCP + Smoking + >/=35 - Past Medical History (1) Anxiety Status: Chronic (2) Bipolar disorder Status: Chronic (3) History of uterine cancer Status: Chronic (4) Hyperlipidemia Status: Chronic (5) PUD (peptic ulcer disease) Status: Chronic Comment: according to pt Past Medical History - Allergies and Home Meds Allergies/Adverse Reactions: Allergies ketorolac tromethamine [From Toradol] Allergy (Verified 01/13/20 22:21) Rash metronidazole [From Flagyl] Allergy (Verified 01/13/20 22:21) Hives Penicillins Allergy (Verified 01/13/20 22:21) Hives promethazine HCl [From Phenergan] Allergy (Verified 01/13/20 22:21) Hives aspirin Adverse Reaction (Verified 01/13/20 22:21) Upset Stomach CT DYE Allergy (Uncoded 01/04/20 22:46) Anaphylaxis IV contrast Allergy (Uncoded 01/04/20 22:46) Anaphylaxis Primary Care Physician: Isabel Arias PA [Primary Care Provider] - Surgical History: cholecystectomy, hysterectomy, - - Oophorectomy Smoking Status: Current every day smoker Review of Systems General: Denies: Chills, Fever, Sweats Eyes: Denies: Visual changes - bilaterally, Diplopia ENT: Denies: Bilateral ear pain, Rhinorrhea, Sore throat Cardiovascular: Reports: Chest pain. Denies: Palpitations, Heart racing Respiratory: Reports: Dyspnea. Denies: Cough, Dyspnea on exertion Gastrointestinal: Reports: Nausea. Denies: Abdominal pain, Vomiting, Diarrhea, Melena, Hematochezia Genitourinary: Denies: Dysuria, Hematuria, Frequency Musculoskeletal: Denies: Myalgias, Neck pain, Back pain, Swelling, Extremity Pain Skin: Denies: Rash, Wounds Neurological: Reports: Headache. Denies: Weakness, Numbness Physical Exam Vital Signs/Narrative: Vital Signs Temp Pulse Resp BP Pulse Ox 01/14/20 15:17 97.5 F L 90 18 129/80 H 99 Inital Vital Signs reviewed: Yes General: Well nourished, Well developed, No Acute Distress Head: Normocephalic, Atraumatic Eyes: Perrl, EOMI ENT: Moist mucous membranes, No rhinorrhea Neck: Supple, Nontender, No lymphadenopathy, No JVD Cardiovascular: Regular rate, Regular rhythm, No murmurs, Normal S1, Normal S2 Respiratory: No distress, CTA bilaterally, Chest tenderness - Diffusely tender, patient states this reproduces her pain Abdomen: Soft, Nontender, Nondistended, Normal bowel sounds Back: Nontender, Normal Inspection. Negative for: CVA tenderness Extremities: Nontender, No edema. Negative for: Calf Tenderness Skin: Normal color, No rash, No Trauma Neurological: Alert, Oriented x3, Cranial nerves II-XII grossly intact, Normal Strength, Normal Sensation Psychological: Normal affect, Normal Mood Diagnostic/Tx/Re-eval Impressions Chest X-Ray 01/14/20 15:57 IMPRESSION: No acute thoracic pathology. Electronically Signed: Raghu Gonzales, at 16:24 EDT Tel , Service support , 01/14/20 15:57 Chest PA and Lateral [RAD] Stat Laboratory Results 01/14/20 01/14/20 15:25 15:25 WBC 8.0 RBC 3.68 L Hgb 10.9 L Hct 35.4 L MCV 96.2 MCH 29.6 MCHC 30.8 L RDW Std Deviation 45.5 H RDW Coeff of Shun 13.2 Plt Count 249 MPV 10.5 Immature Gran % (Auto) 0.900 Neut % (Auto) 54.8 Lymph % (Auto) 33.0 [place] % (Auto) 6.0 Eos % (Auto) 4.8 Baso % (Auto) 0.5 Absolute Neuts (auto) 4.4 Absolute Lymphs (auto) 2.63 Nucleated RBC % 0 Sodium 139 Potassium 3.6 Chloride 108 H Carbon Dioxide 26.0 Anion Gap 5 BUN 17 Creatinine 1.01 Estim Creat Clear Calc 55.87 Est GFR (MDRD) Af Amer 78 Est GFR (MDRD) Non-Af 64 BUN/Creatinine Ratio 16.8 Glucose 101 Calcium 8.6 Troponin I < 0.015 - Rhythm Strip Rhythm Strip: Sinus Rhythm Rate: 81 Ectopy: None - EKG Initial EKG Interpretation: Sinus Rhythm, No Acute Injury Pattern, - - RSR' Prior: Unchanged Treatment: GI Cocktail Repeat Eval: improved TOBI Risk: No Positive TOBI Elements Score: 0 - Medical Decision Making Patient is feeling somewhat better after the GI cocktail. She still has a headache from the nitroglycerin, so we discussed Tylenol for that and she was amenable. She appears much better. Her work-up as above is unremarkable. I did not think we needed to evaluate her for pulmonary embolus again, since she had this discomfort last time and had a CTA of the chest that was negative for pulmonary embolus. Furthermore, she is resting currently with a heart rate of 85, pulse ox 100%, respirations 18, and has a zero PERC score. I think she can follow-up safely. I think she has a low risk syncope. Vasovagal etiologies are certainly in the differential. Prescribed a PPI for the possibility of esophageal etiologies which I am not able to rule in or out, as I discussed with her. She understands and will follow-up with her doctor. We discussed reasons to return. At discharge, she is not dyspneic. ED Disposition - Plan for ED Patient: Disposition: Home or Assisted Living Diagnosis: Chest pain, unspecified, Syncope Instructions: ED Chest Pain NonCardiac Prescriptions: Pantoprazole Sodium [Protonix] 40 mg PO DAILY #14 tab Transmission Status: Pending to [facility]/pharmacy #[id number] Referrals: Isabel Arias PA [Primary Care Provider] - 1-2 Days if not improving
[2020-01-14 15:53] LABS: Absolute Lymphocyte Count 2.63 X10^3/uL (0.83-4.51); Absolute Neutrophil Count 4.4 X10^3/uL (2.0-7.7); Basophil# 0.04 X10^3/uL; Basophil% 0.5 % (0-1); Eosinophil# 0.38 X10^3/uL; Eosinophils% 4.8 % (0-5); Hematocrit 35.4 % (37-47); Hemoglobin 10.9 g/dL (12.0-15.0); Lymphocyte # 2.63 X10^3/ul (4.0); Mean Corp Hgb Conc 30.8 g/dL (32-36); Mean Corpuscular Hgb 29.6 pg (27.0-32.0); Mean Corpuscular Volume 96.2 fL (81-99); Mean Platelet Vol. 10.5 fl (6.2-12.0); Monocyte# 0.48 X10^3/uL; NRBC Flagged by Analyzer 0 % (0-5); Neutrophil # 4.36 X10^3/uL (2.7-7.7); Neutrophil % 54.8 % (47-70); Platelet Count 249 K/mm3 (150-450); RBC Distribution Width CV 13.2 % (11.6-14.6); RBC Distribution Width SD 45.5 fl (35.1-43.9); Red Blood Count 3.68 M/mm3 (4.2-5.4)
[2020-01-14] MEDS: Mag Hydrox/Al Hydrox/Simeth 30 ML UDC PO (15:56)
--- NOTE | 2020-01-14 15:57 | RAD_ITS ---
STUDY: X-RAY CHEST REASON FOR EXAM: Female, 39 years old. Chest pain TECHNIQUE: Frontal and lateral views of the chest COMPARISON: 11/19/2019 FINDINGS: The lungs are clear. There are no pleural effusions. There is no pneumothorax. The heart is stable in size. The visualized osseous structures are within normal limits. RAD/Chest PA and Lateral IMPRESSION: No acute thoracic pathology. Electronically Signed: Raghu Gonzales, at 16:24 EDT Tel , Service support ,
[2020-01-14 16:07] LABS: Anion Gap 5 (5-15); BUN 17 mg/dL (7-18); BUN/Creat Ratio 16.8 RATIO (10-20); Calcium,Total 8.6 mg/dL (8.5-10.1); Chloride 108 mmol/L (98-107); Creatinine, Serum 1.01 mg/dL (0.55-1.02); EST Glomerular Filtration Rate 64 mL/min (>60); Est Glom Filt Rate - Afr Amer 78 mL/min (>60); Estimated Creatinine Clearance 55.87 ml/min; Glucose 101 mg/dL (74-106); Potassium 3.6 mmol/L (3.5-5.1); Sodium Level 139 mmol/L (136-145)
[2020-01-14 16:17] VITALS: BP 108/35; PULSE 83; RESP 16; O2SAT 98
[2020-01-14 17:00] VITALS: BP 95/82; PULSE 83; RESP 16; O2SAT 100
== END 2020-01-14 17:05 | disposition home or self-care (01) ==
PROVIDERS: Emergency Provider Emergency Medicine; PCP Physician Assistant
DX: R07.9 Chest pain, unspecified (principal); R55 Syncope and collapse; R51 Headache; E78.5 Hyperlipidemia, unspecified; F31.9 Bipolar disorder, unspecified; F41.9 Anxiety disorder, unspecified; Z85.42 Personal history of malignant neoplasm of other parts of uterus; Z87.11 Personal history of peptic ulcer disease; Z88.0 Allergy status to penicillin; Z88.1 Allergy status to other antibiotic agents; Z88.6 Allergy status to analgesic agent; Z88.8 Allergy status to other drugs, medicaments and biological substances; Z90.49 Acquired absence of other specified parts of digestive tract; Z90.710 Acquired absence of both cervix and uterus
CPT/HCPCS: 71046; 80048; 84484; 85025; 93005; 99285; J7030; A4216

== ENCOUNTER 2020-01-14 23:54 | Emergency (ER) | payer MEDICAID, SELFPAY ==
[2020-01-14 15:17] VITALS: BMI 38.8
[2020-01-14 23:55] VITALS: BP 147/83; PULSE 91; RESP 11; TEMP 36.7; O2SAT 97; BMI 38.7
--- NOTE | 2020-01-15 01:02 | EKG12_ITS ---
Test Reason : CP Blood Pressure : / mmHG Vent. Rate : 094 BPM Atrial Rate : 094 BPM P-R Int : 156 ms QRS Dur : 092 ms QT Int : 380 ms P-R-T Axes : 036 -44 008 degrees QTc Int : 475 ms Normal sinus rhythm Left axis deviation Abnormal ECG Confirmed by GAB ALVARADO, GALEN ([id number]), digital editor PATRICIA SHARMA ([id number]) on 01/17/2020 11:14:03 AM Referred By: JACQUELYN Confirmed By:GALEN DE GUZMAN MD
[2020-01-15] MEDS: Mag Hydrox/Al Hydrox/Simeth 30 ML UDC PO (01:34)
--- NOTE | 2020-01-15 02:29 | ED.VISSUMM ---
- ER Visit Summary Date of Service: 01/15/20 Chief Complaint: Chest pain History of Present Illness: The patient is a 39 F who presents with chest pain that began again tonight. Patient was seen here earlier tonight for the same complaint. Patient states her pain is over her upper chest. Patient describes it as sharp. Patient states it is worse with deep breathing. Patient states nothing seems to help. Patient admits to some lightheadedness. Patient denies any nausea or vomiting. Patient denies any diaphoresis. Patient denies any cough or fever. Patient was given a prescription for Prevacid. Physical Examination: Vital signs are stable. Patient is afebrile. Patient is in no acute distress. Oral mucosa is pink and moist. Neck is supple. Trachea is midline. There is no JVD noted. Heart was regular rate and rhythm. Lungs are clear and equal bilaterally. Abdomen is soft. Bowel sounds are normal. There is no tenderness. There is no rebound or guarding noted. Skin is warm dry. Cranial nerves II through XII are intact. There are no focal motor or sensory deficits noted. Extremities are intact. There is no calf tenderness or edema. Test Results: EKG showed a normal sinus rhythm with a rate of 94. There are no acute ST or T wave changes. This was unchanged from previous EKG earlier today. Patient had normal labs and normal chest x-ray earlier today. A repeat troponin was obtained and was normal. Emergency Department Course and Treatment: Patient was given a GI cocktail here. Patient was sleeping on reevaluation. Patient was instructed to continue her Prevacid as previously prescribed. Patient was instructed to follow-up with her primary care physician for further evaluation. Patient understood and was agreeable with the plan. All questions were answered. Disposition: Discharge home Impression: Chest pain This note was generated with [employer] dictation software. It may contain incorrect words, spelling, and punctuation that were not noted in review of the chart prior to signing ED Disposition - Plan for ED Patient: Disposition: Home or Assisted Living Diagnosis: Chest pain Instructions: ED Chest Pain Atypical Unkn Cause Referrals: Isabel Arias PA [Primary Care Provider] - 3-5 Days
[2020-01-15 02:43] VITALS: BP 123/63; PULSE 85; RESP 15; O2SAT 96
== END 2020-01-15 02:48 | disposition home or self-care (01) ==
PROVIDERS: Emergency Provider Emergency Medicine; PCP Physician Assistant
DX: R07.9 Chest pain, unspecified (principal); R42 Dizziness and giddiness; R51 Headache; R06.00 Dyspnea, unspecified; Z90.49 Acquired absence of other specified parts of digestive tract; Z87.442 Personal history of urinary calculi
CPT/HCPCS: 71046; 80048; 84484; 85025; 93005; 99285; J7030; A4216

== ENCOUNTER 2020-01-15 18:03 | Emergency (ER) | payer MEDICAID, SELFPAY ==
[2020-01-14 23:55] VITALS: BMI 38.7
[2020-01-15 18:04] VITALS: BP 116/71; PULSE 104; RESP 13; TEMP 36.6; O2SAT 97; BMI 31.7
--- NOTE | 2020-01-15 18:29 | EKG12_ITS ---
Test Reason : CP Blood Pressure : / mmHG Vent. Rate : 103 BPM Atrial Rate : 103 BPM P-R Int : 158 ms QRS Dur : 086 ms QT Int : 356 ms P-R-T Axes : 056 -60 016 degrees QTc Int : 466 ms Sinus tachycardia Pulmonary disease pattern Left anterior fascicular block Abnormal ECG Confirmed by GAB ALVARADO, GALEN ([id number]), online editor PATRICIA SHARMA ([id number]) on 01/17/2020 11:18:33 AM Referred By: ZURDO/RONALDO Confirmed By:GALEN DE GUZMAN MD
--- NOTE | 2020-01-15 18:35 | RAD_ITS ---
STUDY: X-RAY CHEST REASON FOR EXAM: Female, 39 years old. CP and syncope x3 days TECHNIQUE: Single AP portable upright view of the chest. COMPARISON: PA and lateral chest x-ray January 14, 2020. FINDINGS: The lungs are clear, but incompletely expanded. There is no demonstrated pleural abnormality. Stable, upper normal size heart. Normal mediastinum and [place]. Normal visualized pulmonary arteries. Normal visualized aortic arch and descending thoracic aorta. Normal visualized thoracic spine. Normal visualized ribs, clavicles, and shoulders. Surgical clips of prior cholecystectomy again seen in the right upper quadrant. RAD/Chest 1 View (Portable) IMPRESSION: Suboptimal inspiratory effort. No acute cardiopulmonary disease. Electronically Signed: Flavio Carolina MD at 18:50 EDT , Service support ,
[2020-01-15] MEDS: 0.9% Normal Saline 1,000 ML 1000 ML IV (18:42)
[2020-01-15] MEDS: Acetaminophen 500 MG Tablet 1000 MG PO (18:44)
--- NOTE | 2020-01-15 18:58 | ED.DCSUM_ITS ---
- ER Visit Summary Date of Service: 01/15/20 Chief Complaint: Chest pain History of Present Illness: The patient is a [address] Albert. She reports that she has had substernal chest pain is been constant for the past 3 days. She describes it as a tightness. Is 10 on 10 at worst 9-10 currently. I s worsened by nothing and relieved by nothing. It is unchanged with exertion, deep breaths, or movement. She reports that she has been a little bit short of breath. Patient denies any fever, chills, or cough. Patient reports that she started Zoloft 1 month ago and Seroquel 3 weeks ago. She denies any suicidal ideation. Physical Examination: Vitals: Stable. Afebrile. General: Well-nourished and well-developed. Head: Normocephalic atraumatic. Neck: Supple, no lymphadenopathy. No JVD. Nontender. Cardiovascular: Tachycardic regular rhythm. No murmurs. Respiratory: No respiratory distress. Clear to auscultation bilaterally. Moderate tenderness palpation over the costochondral margin bilaterally that does reproduce her pain. Abdominal: Soft, nontender, nondistended, normal bowel sounds. No guarding, rebound, or peritoneal signs. Back: Nontender. Extremities: Nontender, no edema. Skin: Normal color, no rash. Neurologic: Alert and oriented ?3. Cranial nerves II through XII are intact. Normal strength and sensation. Psych: Normal affect. Test Results: EKG is sinus tach at [address] changes. Is unchanged from yesterday. Troponin is negative. Chest x-ray shows poor inspiration and no acute disease. Emergency Department Course and Treatment: Patient had 2 visits yesterday with a normal troponin. Her CBC and Chem-7 were not repeated. She was treated with Tylenol p.o. Patient has had 3 days of constant pain with an unchanged EKG and unchanged troponin. I do not feel that this is an acute coronary syndrome. Her pain is reproduced with palpation of her chest wall. She had a CTA of her chest 2 months ago that was unremarkable. I do not think that exposing her the radiation of another CT of the chest is in her best interest. Treatment Plan: Patient will be discharged with symptomatic care. Push fluids. Use Tylenol and/or ibuprofen for pain. Follow-up with her primary care physician within the next 3 to 5 days for another exam. Disposition: To home in improved and stable condition. Impression: 1. Chest wall pain. 2. ED care plan. This note was generated with [employer] dictation software. It may contain incorrect words, spelling, and punctuation that were not noted in review of the chart prior to signing ED Disposition - Plan for ED Patient: Instructions: ED Chest Pain NonCardiac Referrals: Isabel Arias PA [Primary Care Provider] - 3-5 Days
[2020-01-15 19:10] VITALS: BP 123/84; PULSE 104; RESP 16; O2SAT 98
== END 2020-01-15 19:25 | disposition home or self-care (01) ==
PROVIDERS: Emergency Provider Emergency Medicine; PCP Physician Assistant
DX: R07.89 Other chest pain (principal); R06.02 Shortness of breath; R51 Headache; R06.00 Dyspnea, unspecified; Z87.442 Personal history of urinary calculi; Z90.49 Acquired absence of other specified parts of digestive tract
CPT/HCPCS: 71045; 84484; 93005; 96360; 99285; J7030

== ENCOUNTER 2020-02-01 14:40 | Inpatient (IN) | payer MEDICAID, SELFPAY ==
[2020-01-25 15:39] VITALS: BMI 31.7
[2020-02-01 14:41] VITALS: BP 147/85; PULSE 111; RESP 18; TEMP 36.8; O2SAT 97; O2SAT 98; BMI 36.5
--- NOTE | 2020-02-01 15:13 | CT_ITS ---
STUDY: CT ABDOMEN AND PELVIS WITH CONTRAST REASON FOR EXAM: Female, 39 years old. DIFFUSE AB PAIN X 1 DAY. PRIOR MICHELINE/BSO AND CHOLECYSTECTOMY RADIATION DOSAGE (If Supplied By Facility): CTDIvol = ( 14.99 ) mGy, DLP = ( 1060.32 ) mGycm TECHNIQUE: Transaxial images were obtained from the dome of the diaphragm to the symphysis pubis without oral contrast. Oral, IV Gastrografin 100mL Isovue-300 was administered. Sagittal and coronal images were reconstructed. Individualized dose optimization techniques were used for this CT. COMPARISON: 09/11/2019. FINDINGS: The visualized lung bases are unremarkable. The visualized portions of the heart are within normal limits. Stable cystic liver lesions largest posterior right lobe measuring up to 9.7 cm. There are surgical clips in the gallbladder fossa consistent with a prior cholecystectomy. Normal spleen. Normal pancreas. Normal bilateral adrenal glands. 2 mm nonobstructing right lower pole calyceal stone, otherwise unremarkable right kidney. Normal left kidney. Normal visualized stomach. Normal small intestine. Normal colon. The appendix is visualized and appears normal. Normal abdominal aorta. Normal inferior vena cava. A cystic structure is identified in the right lower pelvis measuring 2 cm. Normal urinary bladder. Uterus not visualized. Normal abdominal wall. Normal osseous structures. CT/Abdomen/Pelvis WITH Contrast IMPRESSION: 2 mm nonobstructing right lower pole renal stone. A cystic structure in the right lower pelvis measuring up to 2 cm is identified may represent residual ovarian tissue as clinically indicated. Multiple stable cystic liver lesions. Cholecystectomy. Electronically Signed: Willem Zuñiga, at 17:51 EDT Tel , Service support ,
--- NOTE | 2020-02-01 15:14 | ED.DCSUM_ITS ---
- ER Visit Summary Date of Service: 02/01/20 Chief Complaint: Abdominal pain History of Present Illness: The patient is a 39 F who presents with abdominal pain that began yesterday. Patient states it has been constant. Patient describes the pain as cramping and sharp. Patient states the pain is over the epigastric area and radiates to her right upper quadrant. Patient states her pain is worse when she ambulates. Patient admits to nausea but denies any vomiting. Patient denies any hematemesis or coffee-ground emesis. Patient denies any diarrhea, melena, or hematochezia. Patient denies any dysuria or hematuria. Physical Examination: Vital signs are stable except for mild tachycardia of 111. Patient is afebrile. Patient is in no acute distress. Neck is supple. Trachea is midline. There is no JVD. Heart was regular rate and rhythm. Lungs are clear and equal bilaterally. Abdomen is soft. Bowel sounds are normal. There is epigastric and right upper quadrant tenderness. There is no rebound or guarding noted. Cranial nerves II through XII are intact. There are no focal motor or sensory deficits. Test Results: CBC shows a mild leukocytosis of 13.7. Comprehensive metabolic profile was essentially within normal limits. Lipase was obtained and was elevated at 840. Urinalysis does not show any evidence of urinary tract infection. CT scan of the abdomen pelvis was obtained. There is no acute intra-abdominal abnormality. There are multiple cystic liver lesions that are stable. These were interpreted by the radiologist and reviewed by myself. Emergency Department Course and Treatment: Patient was given IV fluids and Zofran here. Patient was still having pain. Patient was given a dose of morphine here since she has pancreatitis and has a verifiable indication for opiate pain medication. Patient was advised that she should be admitted to the hospital for bowel rest and IV fluids. Patient is agreeable with this. Case was discussed with the hospitalist. He will admit the patient to his service. Patient understood and was agreeable with the plan. All questions were answered. Disposition: Admit to hospital Impression: 1. Acute pancreatitis This note was generated with [employer] software. It may contain incorrect words, spelling, and punctuation that were not noted in review of the chart prior to signing ED Disposition - Plan for ED Patient: Disposition: Acute Care Hospital [facility] Diagnosis: Acute pancreatitis Referrals: Isabel Arias PA [Primary Care Provider] -
[2020-02-01] MEDS: 0.9% Normal Saline 1,000 ML 1000 ML IV (15:23)
[2020-02-01] MEDS: Ondansetron 4 MG/2 ML Vial IV ×2 (15:26→23:21)
--- NOTE | 2020-02-01 15:31 | ED.RN ---
pt given gown and asked to change. pt refused. no bra on. yvette stover, rn [id number]
[2020-02-01 15:32] LABS: Absolute Lymphocyte Count 2.52 X10^3/uL (0.83-4.51); Basophil# 0.05 X10^3/uL; Basophil% 0.4 % (0-1); Eosinophil# 0.18 X10^3/uL; Eosinophils% 1.3 % (0-5); Hematocrit 39.6 % (37-47); Hemoglobin 12.5 g/dL (12.0-15.0); Lymphocyte # 2.52 X10^3/ul (4.0); Lymphocyte % 18.4 % (19-41); Mean Corp Hgb Conc 31.6 g/dL (32-36); Mean Corpuscular Hgb 29.5 pg (27.0-32.0); Mean Corpuscular Volume 93.4 fL (81-99); Mean Platelet Vol. 10.8 fl (6.2-12.0); Monocyte# 0.75 X10^3/uL; Monocyte% 5.5 % (0-10); NRBC Flagged by Analyzer 0 % (0-5); Neutrophil # 9.99 X10^3/uL (2.7-7.7); Neutrophil % 72.9 % (47-70); Platelet Count 266 K/mm3 (150-450); RBC Distribution Width CV 13.9 % (11.6-14.6); RBC Distribution Width SD 46.6 fl (35.1-43.9); Red Blood Count 4.24 M/mm3 (4.2-5.4); White Blood Count 13.7 K/mm3 (4.4-11.0)
[2020-02-01 15:42] LABS: Lipase 840 U/L (73-393)
[2020-02-01 16:09] LABS: Mucous, Urine 0 SEEN /hpf (<or=2+)
--- NOTE | 2020-02-01 16:09 | ED.RN ---
JANETTE BANUELOS GAVE IV BENADRYL AND IV SOLUMEDROL GIVEN AT 1602. UNABLE TO SIGN OFF IN NOV D/T LOCKED BY PREVIOUS VIN WARD ATTEMPTING TO SIGN OFF.
[2020-02-01 16:19] LABS: Color, Urine Yellow (Yellow); Glucose, Dipstick Normal (Normal); Ketone-Dipstick 5 mg/dl (Negative); Leukocyte Esterase-Dipstick Negative /ul (Negative); Nitrite-Dipstick Negative (Negative); Occult Blood-Urine 25 /ul (Negative); Protein-Dipstick 15 mg/dl (Negative); Specific Gravity, Urine 1.025 (1.002-1.030); Urine Bilirubin Dipstick Negative (Negative); Urine Clarity Cloudy (Clear); Urine Urobilinogen Normal (Normal)
[2020-02-01 16:28] LABS: Bacteria RARE /hpf (None Seen); Red Blood Cells-Urine 0-5 SEEN /hpf (0-5); Squamous Epithelial Cells - UA 10-25 SEEN /hpf (5-10); White Blood Cells 0 SEEN /hpf (0-5)
[2020-02-01 16:47] LABS: AST(SGOT) 9 U/L (15-37); Alanine Aminotransfer ALT/SGPT 17 U/L (13-56); Alkaline Phosphatase 98 U/L (45-117); Anion Gap 8 (5-15); BUN 28 mg/dL (7-18); BUN/Creat Ratio 28.8 RATIO (10-20); Calcium,Total 8.8 mg/dL (8.5-10.1); Chloride 110 mmol/L (98-107); Creatinine, Serum 0.97 mg/dL (0.55-1.02); EST Glomerular Filtration Rate 67 mL/min (>60); Est Glom Filt Rate - Afr Amer 81 mL/min (>60); Estimated Creatinine Clearance 58.18 ml/min; Glucose 91 mg/dL (74-106); Potassium 3.7 mmol/L (3.5-5.1); Sodium Level 139 mmol/L (136-145)
[2020-02-01 17:27] VITALS: BP 123/75; PULSE 75; RESP 15; O2SAT 98
[2020-02-01] MEDS: MethylPREDNISolone 125 MG/2 ML Vial IV (18:14)
[2020-02-01] MEDS: DiphenhydrAMINE 50 MG/ML Syringe 25 MG IV (18:14)
--- NOTE | 2020-02-01 18:18 | NURSING ---
MED SURG ACUTE PANCREATITIS [facility]
[2020-02-01] MEDS: Morphine 4 MG/ML Syringe IV ×2 (18:19→21:22)
[2020-02-01 18:22] VITALS: BP 133/85; PULSE 101; RESP 16; TEMP 37.1; O2SAT 98
--- NOTE | 2020-02-01 18:32 | PCM.HP.STD ---
<Tenzin Campbell - Last Filed: 02/01/20 18:32> Problem List (1) Acute pancreatitis Status: Acute (2) Anxiety Status: Chronic (3) Bipolar disorder Status: Chronic (4) PUD (peptic ulcer disease) Status: Chronic Comment: according to pt (5) Hyperlipidemia Status: Chronic (6) Lung nodule Status: Chronic (7) History of uterine cancer Status: Chronic History of Present Illness Date of Admission: 02/01/20 Chief Complaint: abdominal pain The patient is a 39 year old F with pmhx of cervical and uterine cancer in remission, liver cysts, ovarian cysts, kidney stones, obesity, bipolar disorder, and syncope unclear etiology being worked up by Dr. Cueto who presented to the ER with abdominal pain. She initially started feeling nauseous with intermittent abd pain on Thursday. It went away temporarily then came back much worse yesterday. She describes a midepigastric burning pain radiating into the back. She is also nauseous but has not vomited. She states she has been unable to eat or drink. She came to the ER and had an elevated lipase. She denies a hx of pancreatitis. She is s/p cholecysctectomy. She states she rarely drinks but did have 1 wine cooler last thursday. She is on seroquel which has pancreatitis listed as a possible side effect. [] Past Medical History Past Medical History (Chronic Problems): Chronic Problems (Last Reviewed 12/14/19 @ 10:[address] Jay Cueto MD) Anxiety (Chronic) Bipolar disorder (Chronic) PUD (peptic ulcer disease) (Chronic) according to pt Syncope (Chronic) Chest pain (Chronic) Dyspnea (Chronic) Incomplete right bundle branch block (Chronic) Hyperlipidemia (Chronic) Lung nodule (Chronic) History of uterine cancer (Chronic 2006) Medical History: Medical History (Last Reviewed 12/14/19 @ 10:[address] Jay Cueto MD) Incomplete right bundle branch block (Chronic) I45.10 Hyperlipidemia (Chronic) E78.5 Lung nodule (Chronic) R91.1 History of uterine cancer (Chronic) Onset Date: 2006 Z85.42 Chronic pain G89.29 History of renal calculi Z87.442 Migraine G43.909 Obesity E66.9 Ovarian cyst N83.209 Right tubo-ovarian mass N83.8 Ureteral stone with hydronephrosis N13.2 Allergies ketorolac tromethamine [From Toradol] Allergy (Verified 02/01/20 14:40) Rash metronidazole [From Flagyl] Allergy (Verified 02/01/20 14:40) Hives Penicillins Allergy (Verified 02/01/20 14:40) Hives promethazine HCl [From Phenergan] Allergy (Verified 02/01/20 14:40) Hives aspirin Adverse Reaction (Verified 02/01/20 14:40) Upset Stomach CT DYE Allergy (Uncoded 01/15/20 00:34) Anaphylaxis IV contrast Allergy (Uncoded 01/15/20 00:34) Anaphylaxis Home Medications: Ambulatory Orders Medication Instructions Recorded Albuterol Inhaler [Ventolin Hfa] 2 puff INHALATION Q4H PRN PRN #1 11/19/19 inhaler prazosin 1 mg capsule 1 mg PO QHS 12/14/19 sertraline 50 mg tablet 75 mg PO DAILY 12/14/19 quetiapine 100 mg tablet 100 mg PO QHS 01/16/20 Acetaminophen [Tylenol Extra 1,000 mg PO Q4H PRN PRN 02/01/20 Strength] Clindamycin HCl 300 mg PO 4X/DAY 02/01/20 Nicotine [Nicoderm Cq (PBKC)] 14 mg TRANSDERM. DAILY 02/01/20 Surgical History: Surgical History (Last Reviewed 12/14/19 @ 10:[address] 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[employer] History: cervical cancer, ovarian cancer, ovarian cysts Lives: Spouse/ Significant Other Smoking Status: Current some day smoker Tobacco Use: Non-smoker Alcohol: Occasional Drugs: None - *Family History Maternal Family History: Family History (Last Reviewed 02/01/20 @ 18:39 by CHAZ Henry) Aunt Breast cancer Grandfather CAD (coronary artery disease) Father Heart disease, Onset Age: 73 Mother Heart disease, Onset Age: 62 Other Diabetes Review of Systems Constitutional: Denies: Chills, Fever, Weight Change HEENT: Denies: Head Aches, Sinus Congestion, Sinus Drainage Cardiovascular: Denies: Chest Pain, Palpitations Respiratory: Denies: Cough, Shortness of breath at rest, Sputum production Gastrointestinal: Reports: Abdominal Pain, Nausea, -. Denies: Constipation, Diarrhea, Vomiting Genitourinary: Denies: Dysuria Musculoskeletal: Denies: Joint Pain, Joint Tenderness Skin: Denies: Rash, Wounds Neurological: Denies: Numbness, Tingling, Focal weakness Psychiatric: Reports: Anxiety. Denies: Depression, Homicidal Ideations, Suicidal Ideations Hematologic/ Lymphatic: Denies: Easy Bruising, Easy Bleeding VTE Information - Inpt Only VTE Present on Admission: No VTE Mechan Device Prophylaxis: None VTE Pharm Prophylaxis ordered?: Yes Patient Problems: Active and Suspected Problems (Last Reviewed 12/14/19 @ 10:[address] Jay Cueto MD) Acute pancreatitis (Acute) - Physical Exam Vitals/I&O's: Vital Signs Temp Pulse Resp BP Pulse Ox 98.8 F 101 H 16 133/85 H 98 02/01/20 18:22 02/01/20 18:22 02/01/20 18:22 02/01/20 18:22 02/01/20 18:22 Oxygen Delivery Method Room Air Weight: 193 lb 1.999 oz Body Mass Index (BMI) 36.5 Intake and Output for Last 24 Hours 01/30/20 01/31/20 02/01/20 23:59 23:59 23:59 Intake Total 1000 / 1000 Balance 1000 / 1000 General: Alert, Oriented x3, Cooperative HEENT: Atraumatic, PERRLA, EOMI, Normocephalic Neck: Supple, No JVD, Negative Carotid Bruits Lungs: Clear to auscultation, Normal air movement Cardiovascular: Regular rate, No murmurs Abdomen: Bowel Sounds Present, Soft, Non Tender, Obese Extremities: No edema, Capillary Refill Less than 3 Seconds Skin: No rashes, No breakdown Musculoskeletal: No Tenderness to Palpation of Joints or Extremities Neurological: Cranial nerves II-XII grossly intact Psych/Mental Status: Normal Affect, Appropriate, Alert and oriented to time, place, person, mood and affect Laboratory Results 02/01/20 15:20: WBC 13.7 H, RBC 4.24, Hgb 12.5, Hct 39.6, MCV 93.4, MCH 29.5, MCHC 31.6 L, RDW Std Deviation 46.6 H, RDW Coeff of Shun 13.9, Plt Count 266, MPV 10.8, Immature Gran % (Auto) 1.500 H, Neut % (Auto) 72.9 H, Lymph % (Auto) 18.4 L, [place] % (Auto) 5.5, Eos % (Auto) 1.3, Baso % (Auto) 0.4, Absolute Neuts (auto) 10.0 H, Absolute Lymphs (auto) 2.52, Nucleated RBC % 0 02/01/20 15:20: Lipase 840 H 02/01/20 15:20: Sodium 139, Potassium 3.7, Chloride 110 H, Carbon Dioxide 21.0, Anion Gap 8, BUN 28 H, Creatinine 0.97, Estim Creat Clear Calc 58.18, Est GFR (MDRD) Af Amer 81, Est GFR (MDRD) Non-Af 67, BUN/Creatinine Ratio 28.8 H, Glucose 91, Calcium 8.8, Total Bilirubin 0.30, AST 9 L, ALT 17, Alkaline Phosphatase 98, Total Protein 8.0, Albumin 4.0, Globulin 4.0, Albumin/Globulin Ratio 1.0 02/01/20 16:00: Urine Color Yellow, Urine Clarity Cloudy, Urine pH 5.0, Ur Specific [place] 1.025, Urine Protein 15 H, Urine Glucose (UA) Normal, Urine Ketones 5 H, Urine Occult Blood 25 H, Urine Nitrite Negative, Urine Bilirubin Negative, Urine Urobilinogen Normal, Ur Leukocyte Esterase Negative, Urine RBC 0-5 SEEN, Urine WBC 0 SEEN, Ur Squamous Epith Cells 10-25 SEEN, Urine Bacteria RARE, Urine Mucus 0 SEEN Assessment/Plan All Active Problems (Last Reviewed 12/14/19 @ 10:[address] Jay Cueto MD) Acute pancreatitis (Acute) Right flank pain (Resolved) 1. Acute pancreatitis - lipase elevated, classic midepigastric pain with radiation to the back. Elevated WBCs. Pt will be placed on clear liquid diet and supportive care. Repeat Lipase in AM. She denies significant alcohol intake. She is on seroquel which can cause pancreatitis. She has no gallbladder. Check AM FLP for triglyceride level. -CT with nonobstructing renal stone, multiple cystic liver lesions, possible ovarian cyst 2. Bipolar disorder - hopefully pt will improve with supportive care, if she needs to come off seroquel she will need to be transitioned to an alternate medication as appropriate. She will need follow up with psychiatry. Continue zoloft. She uses prazosin for nightmares. 3. Nicotine abuse - recently completed nicotine patch taper no longer smoking 4. 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 Hx syncope - she is being worked up by Dr. Cueto for this as an outpatient. DVT ppx: early ambulation This patient was seen by Tenzin Campbell PA-C under the supervision of Dr. Reich. <Paramjit Reich - Last Filed: 02/01/20 18:53> History of Present Illness The patient is a 39 year old F [] Past Medical History Medical History: Medical History (Last Reviewed 12/14/19 @ 10:[address] Jay Cueto MD) Incomplete right bundle branch block (Chronic) I45.10 Hyperlipidemia (Chronic) E78.5 Lung nodule (Chronic) R91.1 History of uterine cancer (Chronic) Onset Date: 2006 Z85.42 Chronic pain G89.29 History of renal calculi Z87.442 Migraine G43.909 Obesity E66.9 Ovarian cyst N83.209 Right tubo-ovarian mass N83.8 Ureteral stone with hydronephrosis N13.2 Allergies ketorolac tromethamine [From Toradol] Allergy (Verified 02/01/20 14:40) Rash metronidazole [From Flagyl] Allergy (Verified 02/01/20 14:40) Hives Penicillins Allergy (Verified 02/01/20 14:40) Hives promethazine HCl [From Phenergan] Allergy (Verified 02/01/20 14:40) Hives aspirin Adverse Reaction (Verified 02/01/20 14:40) Upset Stomach CT DYE Allergy (Uncoded 01/15/20 00:34) Anaphylaxis IV contrast Allergy (Uncoded 01/15/20 00:34) Anaphylaxis Surgical History: Surgical History (Last Reviewed 12/14/19 @ 10:[address] Jay Cueto MD) H/O ovarian cystectomy Onset Date: 09/2019 Z98.890, Z87.42 History of bilateral oophorectomy Z90.722 2013, 2015 History of hysterectomy Z90.710 History of tubal ligation Z98.51 - *Family History Maternal Family History: Family History (Last Reviewed 02/01/20 @ 18:39 by CHAZ Henry) Aunt Breast cancer Grandfather CAD (coronary artery disease) Father Heart disease, Onset Age: 73 Mother Heart disease, Onset Age: 62 Other Diabetes - Physical Exam Vitals/I&O's: Vital Signs Temp Pulse Resp BP Pulse Ox 98.8 F 101 H 16 133/85 H 98 02/01/20 18:22 02/01/20 18:22 02/01/20 18:22 02/01/20 18:22 02/01/20 18:22 Oxygen Delivery Method Room Air Weight: 87.6 kg Body Mass Index (BMI) 36.5 Intake and Output for Last 24 Hours 01/30/20 01/31/20 02/01/20 23:59 23:59 23:59 Intake Total 1000 / 1000 Balance 1000 / 1000 Laboratory Results 02/01/20 15:20: WBC 13.7 H, RBC 4.24, Hgb 12.5, Hct 39.6, MCV 93.4, MCH 29.5, MCHC 31.6 L, RDW Std Deviation 46.6 H, RDW Coeff of Shun 13.9, Plt Count 266, MPV 10.8, Immature Gran % (Auto) 1.500 H, Neut % (Auto) 72.9 H, Lymph % (Auto) 18.4 L, [place] % (Auto) 5.5, Eos % (Auto) 1.3, Baso % (Auto) 0.4, Absolute Neuts (auto) 10.0 H, Absolute Lymphs (auto) 2.52, Nucleated RBC % 0 02/01/20 15:20: Lipase 840 H 02/01/20 15:20: Sodium 139, Potassium 3.7, Chloride 110 H, Carbon Dioxide 21.0, Anion Gap 8, BUN 28 H, Creatinine 0.97, Estim Creat Clear Calc 58.18, Est GFR (MDRD) Af Amer 81, Est GFR (MDRD) Non-Af 67, BUN/Creatinine Ratio 28.8 H, Glucose 91, Calcium 8.8, Total Bilirubin 0.30, AST 9 L, ALT 17, Alkaline Phosphatase 98, Total Protein 8.0, Albumin 4.0, Globulin 4.0, Albumin/Globulin Ratio 1.0 02/01/20 16:00: Urine Color Yellow, Urine Clarity Cloudy, Urine pH 5.0, Ur Specific [place] 1.025, Urine Protein 15 H, Urine Glucose (UA) Normal, Urine Ketones 5 H, Urine Occult Blood 25 H, Urine Nitrite Negative, Urine Bilirubin Negative, Urine Urobilinogen Normal, Ur Leukocyte Esterase Negative, Urine RBC 0-5 SEEN, Urine WBC 0 SEEN, Ur Squamous Epith Cells 10-25 SEEN, Urine Bacteria RARE, Urine Mucus 0 SEEN Assessment/Plan This patient was seen in conjunction with Tenzin Campbell PA-C . I have independently interviewed and examined the patient and reviewed pertinent historical, laboratory, and other data. Please refer to Tenzin Campbell PA-C note for details of this patient's presentation, findings, and recommendations. I have reviewed Tenzin Campbell PA-C note and concur with documented findings. In brief, patient is a 1-year-old lady with history of bipolar disorder obesity with BMI of 36.5 who presented with abdominal pain patient was found to have elevated lipase level consistent with pancreatitis. Patient CT of the abdomen also demonstrated nonobstructing renal stones and multiple cystic liver lesions and possible ovarian cyst. Admitted to regular nursing floor for further management Physical Examination: GENERAL: cooperative HEENT: Atraumatic; EYES; Anicteric, Normal Conjunctiva NECK; supple, normal thyroid, RESPIRATORY: Diminished to auscultation CARDIOVASCULAR: Regular S1 S2, GI: soft, normoactive bowel sounds, : No Renal angle tenderness; EXTREMITIES: No edema, no clubbing, MUSCULOSKELETAL: no muscle waisting NEURO: Awake; no lateralizing signs. SKIN: No Rash PSYCH; Flat affect Assessment: 1. Acute pancreatitis 2. Multiple stable cystic liver lesions 3. Nonobstructing right lower pole renal stone 4. Obesity with BMI of 36.5 5. Seroquel 6. Insomnia 7. Tobacco dependence 8. DVT prophylaxis?low risk Recommendations: 1. I have discussed the results of my overview and impressions with the patient 2. Options for management were reviewed Clinical Impression(s) from Imaging Studies Abdomen/Pelvis CT 02/01/20 15:13 IMPRESSION: 2 mm nonobstructing right lower pole renal stone. A cystic structure in the right lower pelvis measuring up to 2 cm is identified may represent residual ovarian tissue as clinically indicated. Multiple stable cystic liver lesions. Cholecystectomy. Electronically Signed: Willem Zuñiga, at 17:51 EDT Tel , Service support , OBSV E&M: [id number] Initial observation care L3
[2020-02-01 19:00] VITALS: BMI 36.0
[2020-02-01 19:09] VITALS: BMI 36.0
[2020-02-01] MEDS: Acetaminophen 325 MG Tablet 650 MG PO (19:52)
[2020-02-01] MEDS: oxyCODONE 5 MG Tablet PO (19:52)
[2020-02-01] MEDS: 0.9% Saline Lock 10 ML Syringe IV ×3 (19:52→23:21)
[2020-02-01] MEDS: Doxazosin 1 MG Tablet PO (21:24)
[2020-02-01] MEDS: QUEtiapine 100 MG Tablet PO (21:24)
[2020-02-01 21:30] VITALS: RESP 18; O2SAT 98
[2020-02-01 21:34] VITALS: O2SAT 98
[2020-02-01 21:43] VITALS: BP 112/63; PULSE 103; RESP 16; TEMP 36.4; O2SAT 99
[2020-02-02] VITALS (7 sets, daily range): BP systolic 110–150; BP diastolic 67–78; PULSE 78–91; RESP 16–22; TEMP 36.5–36.7; O2SAT 97–100
[2020-02-02] MEDS: 0.9% Saline Lock 10 ML Syringe IV ×6 (00:37→17:56)
[2020-02-02] MEDS: Morphine 4 MG/ML Syringe IV ×2 (00:38→06:05)
[2020-02-02] MEDS: oxyCODONE 5 MG Tablet PO (03:40)
[2020-02-02] MEDS: Acetaminophen 325 MG Tablet 650 MG PO (03:40)
[2020-02-02] MEDS: Ondansetron 4 MG/2 ML Vial IV ×3 (06:01→21:08)
[2020-02-02] MEDS: Mag Hydrox/Al Hydrox/Simeth 30 ML UDC PO ×2 (07:01→10:55)
[2020-02-02 07:05] LABS: Absolute Lymphocyte Count 1.53 X10^3/uL (0.83-4.51); Absolute Neutrophil Count 11.9 X10^3/uL (2.0-7.7); Basophil# 0.03 X10^3/uL; Basophil% 0.2 % (0-1); Eosinophil# 0.01 X10^3/uL; Eosinophils% 0.1 % (0-5); Hematocrit 36.8 % (37-47); Hemoglobin 11.5 g/dL (12.0-15.0); Lymphocyte # 1.53 X10^3/ul (4.0); Lymphocyte % 10.6 % (19-41); Mean Corp Hgb Conc 31.3 g/dL (32-36); Mean Corpuscular Hgb 29.6 pg (27.0-32.0); Mean Corpuscular Volume 94.6 fL (81-99); Mean Platelet Vol. 10.3 fl (6.2-12.0); Monocyte# 0.69 X10^3/uL; Monocyte% 4.8 % (0-10); NRBC Flagged by Analyzer 0 % (0-5); Neutrophil # 11.91 X10^3/uL (2.7-7.7); Neutrophil % 82.8 % (47-70); Platelet Count 240 K/mm3 (150-450); RBC Distribution Width CV 13.9 % (11.6-14.6); RBC Distribution Width SD 47.6 fl (35.1-43.9); Red Blood Count 3.89 M/mm3 (4.2-5.4); White Blood Count 14.4 K/mm3 (4.4-11.0)
[2020-02-02 07:36] LABS: AST(SGOT) 9 U/L (15-37); Alanine Aminotransfer ALT/SGPT 15 U/L (13-56); Albumin, Serum 3.7 g/dL (3.2-5.0); Alkaline Phosphatase 94 U/L (45-117); Anion Gap 5 (5-15); BUN 12 mg/dL (7-18); Bilirubin, Direct 0.08 mg/dL (0.00-0.30); Calcium,Total 8.3 mg/dL (8.5-10.1); Chloride 113 mmol/L (98-107); Creatinine, Serum 0.86 mg/dL (0.55-1.02); EST Glomerular Filtration Rate 78 mL/min (>60); Est Glom Filt Rate - Afr Amer 94 mL/min (>60); Estimated Creatinine Clearance 65.62 ml/min; Globulin 3.7 g/dL (2.2-4.2); Glucose 122 mg/dL (74-106); Lipase 2353 U/L (73-393); Potassium 3.4 mmol/L (3.5-5.1); Protein, Total 7.4 g/dL (6.4-8.2); Sodium Level 140 mmol/L (136-145)
--- NOTE | 2020-02-02 08:14 | PCM.PN.HOSP ---
Patient Problems: Active and Suspected Problems (Last Reviewed 12/14/19 @ 10:[address] Jay Cueto MD) Acute pancreatitis (Acute) Reason for Visit: Follow-up acute pancreatitis Subjective: Patient is a 39-year-old lady who presented with abdominal pain her evaluation was consistent with acute pancreatitis. Admitted to regular nursing floor for conservative management. Patient pain level actually did worsen following her admission. She also had significant elevation in her lipase levels compared to her admitting levels. Objective: GENERAL: Crying HEENT: Atraumatic; EYES; Anicteric, Normal Conjunctiva NECK; supple, normal thyroid, RESPIRATORY: Diminished to auscultation CARDIOVASCULAR: Regular S1 S2, GI: soft, normoactive bowel sounds, : No Renal angle tenderness; EXTREMITIES: No edema, no clubbing, MUSCULOSKELETAL: no muscle waisting NEURO: Awake; no lateralizing signs. SKIN: No Rash PSYCH; Flat affect Vitals/I&O's: Vital Signs Temp Pulse Resp BP Pulse Ox 97.7 F L 81 16 110/67 99 02/02/20 03:38 02/02/20 03:38 02/02/20 03:38 02/02/20 03:38 02/02/20 03:38 Oxygen Delivery Method Room Air Weight: 86.5 kg Body Mass Index (BMI) 36.0 Intake and Output for Last 24 Hours 01/31/20 02/01/20 02/02/20 23:59 23:59 23:59 Intake Total 1660 / 1660 1300 / 1300 Balance 1660 / 1660 1300 / 1300 Laboratory Results 02/01/20 15:20: WBC 13.7 H, RBC 4.24, Hgb 12.5, Hct 39.6, MCV 93.4, MCH 29.5, MCHC 31.6 L, RDW Std Deviation 46.6 H, RDW Coeff of Shun 13.9, Plt Count 266, MPV 10.8, Immature Gran % (Auto) 1.500 H, Neut % (Auto) 72.9 H, Lymph % (Auto) 18.4 L, [place] % (Auto) 5.5, Eos % (Auto) 1.3, Baso % (Auto) 0.4, Absolute Neuts (auto) 10.0 H, Absolute Lymphs (auto) 2.52, Nucleated RBC % 0 02/01/20 15:20: Lipase 840 H 02/01/20 15:20: Sodium 139, Potassium 3.7, Chloride 110 H, Carbon Dioxide 21.0, Anion Gap 8, BUN 28 H, Creatinine 0.97, Estim Creat Clear Calc 58.18, Est GFR (MDRD) Af Amer 81, Est GFR (MDRD) Non-Af 67, BUN/Creatinine Ratio 28.8 H, Glucose 91, Calcium 8.8, Total Bilirubin 0.30, AST 9 L, ALT 17, Alkaline Phosphatase 98, Total Protein 8.0, Albumin 4.0, Globulin 4.0, Albumin/Globulin Ratio 1.0 02/01/20 16:00: Urine Color Yellow, Urine Clarity Cloudy, Urine pH 5.0, Ur Specific [place] 1.025, Urine Protein 15 H, Urine Glucose (UA) Normal, Urine Ketones 5 H, Urine Occult Blood 25 H, Urine Nitrite Negative, Urine Bilirubin Negative, Urine Urobilinogen Normal, Ur Leukocyte Esterase Negative, Urine RBC 0-5 SEEN, Urine WBC 0 SEEN, Ur Squamous Epith Cells 10-25 SEEN, Urine Bacteria RARE, Urine Mucus 0 SEEN 02/02/20 06:44: Sodium 140, Potassium 3.4 L, Chloride 113 H, Carbon Dioxide 22.0, Anion Gap 5, BUN 12, Creatinine 0.86, Estim Creat Clear Calc 65.62, Est GFR (MDRD) Af Amer 94, Est GFR (MDRD) Non-Af 78, BUN/Creatinine Ratio 14.0, Glucose 122 H, Calcium 8.3 L, Magnesium 2.0, Total Bilirubin 0.40, Direct Bilirubin 0.08, AST 9 L, ALT 15, Alkaline Phosphatase 94, Total Protein 7.4, Albumin 3.7, Globulin 3.7, Lipase 2353 H 02/02/20 06:44: WBC 14.4 H, RBC 3.89 L, Hgb 11.5 L, Hct 36.8 L, MCV 94.6, MCH 29.6, MCHC 31.3 L, RDW Std Deviation 47.6 H, RDW Coeff of Shun 13.9, Plt Count 240, MPV 10.3, Immature Gran % (Auto) 1.500 H, Neut % (Auto) 82.8 H, Lymph % (Auto) 10.6 L, [place] % (Auto) 4.8, Eos % (Auto) 0.1, Baso % (Auto) 0.2, Absolute Neuts (auto) 11.9 H, Absolute Lymphs (auto) 1.53, Nucleated RBC % 0 Current Medications Acetaminophen (Tylenol) 650 mg PO Q6H PRN PRN PRN Reason: Pain Score 1-10/Temp > 100.7 F Last Admin: 02/02/20 03:40 Dose: 650 mg Documented by: Al Hydroxide/Mg Hydroxide (Mylanta Ii) 30 ml PO Q6H PRN PRN PRN Reason: Gastric Burning Last Admin: 02/02/20 07:01 Dose: 30 ml Documented by: Albuterol Sulfate (Ventolin Aerosols) 2.5 mg INHALATION Q4H PRN PRN PRN Reason: Wheezing Doxazosin Mesylate (Cardura) 1 mg PO QHS KERI Last Admin: 02/01/20 21:24 Dose: 1 mg Documented by: Hydromorphone HCl (Dilaudid Inj) 1 mg IV Q3H PRN PRN PRN Reason: Pain Score 6-10/10 Potassium Chloride/Dextrose/Sod Cl () 1,000 mls @ 150 mls/hr IV .Q6H40M [facility] Stop: 02/02/20 21:52 Last Admin: 02/02/20 03:12 Dose: 150 mls/hr Documented by: Pantoprazole Sodium 40 mg/ (Sodium Chloride) 110 mls @ 330 mls/hr IV Q24 [facility] Magnesium Hydroxide (Milk Of Magnesia) 30 ml PO DAILY PRN PRN PRN Reason: Constipation Melatonin (Melatonin) 3 mg PO QHS PRN PRN PRN Reason: INSOMNIA Nicotine (Nicoderm Cq (Pbkc)) 14 mg TRANSDERM. DAILY [facility] Ondansetron HCl (Zofran) 4 mg IV Q6H PRN PRN PRN Reason: NAUSEA/VOMITING Last Admin: 02/02/20 06:01 Dose: 4 mg Documented by: Oxycodone HCl (Oxyir) 5 mg PO Q4H PRN PRN PRN Reason: Pain Score 4-5/10 Last Admin: 02/02/20 03:40 Dose: 5 mg Documented by: Sertraline HCl (Zoloft) 100 mg PO DAILY [facility] Sodium Chloride () 10 - 40 ml IV UD PRN PRN Reason: SALINE FLUSH Last Admin: 02/02/20 06:01 Dose: 10 ml Documented by: Medical Necessity - Tobacco Use Smoking Status: Current some day smoker Tobacco Use: Non-smoker Assessment/Plan All Active Problems (Last Reviewed 12/14/19 @ 10:[address] Jay Cueto MD) Acute pancreatitis (Acute) Right flank pain (Resolved) In brief, patient is a 39-year-old lady with history of bipolar disorder obesity with BMI of 36.5 who presented with abdominal pain patient was found to have elevated lipase level consistent with pancreatitis. Patient CT of the abdomen also demonstrated nonobstructing renal stones and multiple cystic liver lesions and possible ovarian cyst. Admitted to regular nursing floor for further management 1. Acute pancreatitis -Denies alcohol use and she has her gallbladder taken out. Do suspect her medication Seroquel which has subsequently been held. Patient managed conservatively with bowel rest IV fluid as well as pain medication 2. Multiple stable cystic liver lesions ?Patient informed of results plan is for patient to follow-up with PCP for repeat imaging studies in 3 to 6 months for stability 3. Nonobstructing right lower pole renal stone ?Currently asymptomatic 4. 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 A suspicion is that Seroquel may be contributing to patient pancreatitis 6 Tobacco dependence - counseled on cessation, offered nicotine patch for tobacco cravings 7. DVT prophylaxis?low risk Clinical Impression(s) from Imaging Studies Abdomen/Pelvis CT 02/01/20 15:13 IMPRESSION: 2 mm nonobstructing right lower pole renal stone. A cystic structure in the right lower pelvis measuring up to 2 cm is identified may represent residual ovarian tissue as clinically indicated. Multiple stable cystic liver lesions. Cholecystectomy. Electronically Signed: Willem Zuñiga, at 17:51 EDT Tel , Service support , OBSV E&M: [id number] Subsequent observation care L3
[2020-02-02] MEDS: HYDROmorphone 1 MG/ML Syringe IV ×5 (08:39→21:08)
[2020-02-02] MEDS: Doxazosin 1 MG Tablet PO (21:08)
[2020-02-02] MEDS: MELATONIN 3 MG TABLET PO (21:08)
[2020-02-02] MEDS: Albuterol 2.5 MG/3 ML VIAL.NEB. INHALATION (23:29)
[2020-02-03] MEDS: HYDROmorphone 1 MG/ML Syringe IV ×6 (00:24→19:46)
[2020-02-03] MEDS: 0.9% Saline Lock 10 ML Syringe IV ×6 (00:40→12:22)
[2020-02-03 03:23] VITALS: BP 144/66; PULSE 97; RESP 18; TEMP 36.8; O2SAT 98
[2020-02-03] MEDS: Ondansetron 4 MG/2 ML Vial IV (03:25)
[2020-02-03] MEDS: Magnesium Hydroxide 30 ML UDC PO (05:32)
--- NOTE | 2020-02-03 07:27 | PCM.PN.HOSP ---
Patient Problems: Active and Suspected Problems (Last Reviewed 12/14/19 @ 10:[address] Jay Cueto MD) Acute pancreatitis (Acute) Reason for Visit: Follow-up acute pancreatitis Subjective: Patient seen still complains of significant abdominal discomfort. She did experience significant nausea and vomiting during the night after receiving GI cocktail. Did discuss with patient about initiation of oral diet and order was placed for clear liquid with plans to advance as tolerated Objective: GENERAL: cooperative HEENT: Atraumatic; EYES; Anicteric, Normal Conjunctiva NECK; supple, normal thyroid, RESPIRATORY: Diminished to auscultation CARDIOVASCULAR: Regular S1 S2, GI: soft, normoactive bowel sounds, : No Renal angle tenderness; EXTREMITIES: No edema, no clubbing, MUSCULOSKELETAL: no muscle waisting NEURO: Awake; no lateralizing signs. SKIN: No Rash PSYCH; Flat affect Vitals/I&O's: Vital Signs Temp Pulse Resp BP Pulse Ox 98.2 F 97 18 144/66 H 98 02/03/20 03:23 02/03/20 03:23 02/03/20 03:23 02/03/20 03:23 02/03/20 03:23 Oxygen Delivery Method Room Air Weight: 86.5 kg Body Mass Index (BMI) 36.0 Intake and Output for Last 24 Hours 02/01/20 02/02/20 02/03/20 23:59 23:59 23:59 Intake Total 1660 / 1660 3510 / 3560 1250 / 1250 Output Total 100 / 150 50 / 50 Balance 1660 / 1660 3410 / 3410 1200 / 1200 Laboratory Results 02/02/20 06:44: Sodium 140, Potassium 3.4 L, Chloride 113 H, Carbon Dioxide 22.0, Anion Gap 5, BUN 12, Creatinine 0.86, Estim Creat Clear Calc 65.62, Est GFR (MDRD) Af Amer 94, Est GFR (MDRD) Non-Af 78, BUN/Creatinine Ratio 14.0, Glucose 122 H, Calcium 8.3 L, Magnesium 2.0, Total Bilirubin 0.40, Direct Bilirubin 0.08, AST 9 L, ALT 15, Alkaline Phosphatase 94, Total Protein 7.4, Albumin 3.7, Globulin 3.7, Lipase 2353 H Current Medications Acetaminophen (Tylenol) 650 mg PO Q6H PRN PRN PRN Reason: Pain Score 1-10/Temp > 100.7 F Last Admin: 02/02/20 03:40 Dose: 650 mg Documented by: Al Hydroxide/Mg Hydroxide (Mylanta Ii) 30 ml PO Q6H PRN PRN PRN Reason: Gastric Burning Last Admin: 02/02/20 07:01 Dose: 30 ml Documented by: Albuterol Sulfate (Ventolin Aerosols) 2.5 mg INHALATION Q4H PRN PRN PRN Reason: Wheezing Last Admin: 02/02/20 23:29 Dose: 2.5 mg Documented by: Doxazosin Mesylate (Cardura) 1 mg PO QHS [facility] Last Admin: 02/02/20 21:08 Dose: 1 mg Documented by: Hydromorphone HCl (Dilaudid Inj) 1 mg IV Q3H PRN PRN PRN Reason: Pain Score 6-10/10 Last Admin: 02/03/20 06:28 Dose: 1 mg Documented by: Pantoprazole Sodium 40 mg/ (Sodium Chloride) 110 mls @ 330 mls/hr IV Q24 [facility] Last Infusion: 02/02/20 09:26 Dose: Infused Documented by: Potassium Chloride () 10 meq in 100 mls @ 100 mls/hr IV BOLUS Q1H [facility] Stop: 02/03/20 11:29 Magnesium Hydroxide (Milk Of Magnesia) 30 ml PO DAILY PRN PRN PRN Reason: Constipation Last Admin: 02/03/20 05:32 Dose: 30 ml Documented by: Melatonin (Melatonin) 3 mg PO QHS PRN PRN PRN Reason: INSOMNIA Last Admin: 02/02/20 21:08 Dose: 3 mg Documented by: Nicotine (Nicoderm Cq (Pbkc)) 14 mg TRANSDERM. DAILY [facility] Last Admin: 02/02/20 08:56 Dose: Not Given Documented by: Ondansetron HCl (Zofran) 4 mg IV Q6H PRN PRN PRN Reason: NAUSEA/VOMITING Last Admin: 02/03/20 03:25 Dose: 4 mg Documented by: Oxycodone HCl (Oxyir) 5 mg PO Q4H PRN PRN PRN Reason: Pain Score 4-5/10 Last Admin: 02/02/20 03:40 Dose: 5 mg Documented by: Sertraline HCl (Zoloft) 100 mg PO DAILY [facility] Last Admin: 02/02/20 08:55 Dose: Not Given Documented by: Sodium Chloride () 10 - 40 ml IV UD PRN PRN Reason: SALINE FLUSH Last Admin: 02/03/20 06:28 Dose: 10 ml Documented by: Medical Necessity - Tobacco Use Smoking Status: Current some day smoker Tobacco Use: Non-smoker Assessment/Plan All Active Problems (Last Reviewed 12/14/19 @ 10:[address] Jay Cueto MD) Acute pancreatitis (Acute) Right flank pain (Resolved) In brief, patient is a 39-year-old lady with history of bipolar disorder obesity with BMI of 36.5 who presented with abdominal pain patient was found to have elevated lipase level consistent with pancreatitis. Patient CT of the abdomen also demonstrated nonobstructing renal stones and multiple cystic liver lesions and possible ovarian cyst. Admitted to regular nursing floor for further management 1. Acute pancreatitis -Denies alcohol use and she has her gallbladder taken out. Do suspect her medication Seroquel which has subsequently been held. Patient managed conservatively with bowel rest IV fluid as well as pain medication ?02/02/2020 patient seen still complains of significant abdominal discomfort. She did experience significant nausea and vomiting during the night after receiving GI cocktail. Did discuss with patient about initiation of oral diet and order was placed for clear liquid with plans to advance as tolerated 2. Multiple stable cystic liver lesions ?Patient informed of results plan is for patient to follow-up with PCP for repeat imaging studies in 3 to 6 months for stability 3. Nonobstructing right lower pole renal stone ?Currently asymptomatic 4. 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 A suspicion is that Seroquel may be contributing to patient pancreatitis 6 Tobacco dependence - counseled on cessation, offered nicotine patch for tobacco cravings 7. DVT prophylaxis?low risk Inpatient E&M: 27608 Subs Hosp L2
[2020-02-03 07:54] VITALS: O2SAT 98
[2020-02-03 08:10] LABS: Anion Gap 7 (5-15); BUN 6 mg/dL (7-18); BUN/Creat Ratio 7.8 RATIO (10-20); Calcium,Total 8.4 mg/dL (8.5-10.1); Chloride 109 mmol/L (98-107); Creatinine, Serum 0.77 mg/dL (0.55-1.02); EST Glomerular Filtration Rate 88 mL/min (>60); Est Glom Filt Rate - Afr Amer 106 mL/min (>60); Estimated Creatinine Clearance 73.29 ml/min; Glucose 89 mg/dL (74-106); Potassium 3.2 mmol/L (3.5-5.1); Sodium Level 139 mmol/L (136-145)
[2020-02-03] MEDS: Sertraline 100 MG Tablet PO (09:26)
[2020-02-03] MEDS: Potassium Chloride 10mEq/100mL 10 MEQ/100 ML IV.SOLN. 100 MEQ IV BOLUS ×4 (09:32→13:24)
[2020-02-03 09:37] VITALS: BP 129/71; PULSE 100; RESP 18; TEMP 36.8; O2SAT 98
[2020-02-03 14:51] VITALS: BP 123/63; PULSE 99; RESP 18; TEMP 36.8; O2SAT 98
[2020-02-03] MEDS: oxyCODONE 5 MG Tablet PO ×2 (17:05→21:16)
[2020-02-03] MEDS: Magnesium Citrate 300 ML PO (17:35)
[2020-02-03 18:18] LABS: Lipase 4682 U/L (73-393)
[2020-02-03] MEDS: Doxazosin 1 MG Tablet PO (21:16)
[2020-02-03 21:19] VITALS: BP 129/71; PULSE 106; RESP 18; TEMP 36.8; O2SAT 98
[2020-02-03] MEDS: DiphenhydrAMINE 25 MG Capsule PO (21:25)
[2020-02-04] MEDS: HYDROmorphone 1 MG/ML Syringe IV (00:50)
[2020-02-04 02:05] VITALS: BP 125/64; PULSE 120; RESP 16; TEMP 36.8; O2SAT 100
[2020-02-04] MEDS: oxyCODONE 5 MG Tablet PO ×5 (02:45→21:04)
[2020-02-04 06:44] LABS: Hematocrit 35.4 % (37-47); Hemoglobin 11.2 g/dL (12.0-15.0); Mean Corp Hgb Conc 31.6 g/dL (32-36); Mean Corpuscular Hgb 29.5 pg (27.0-32.0); Mean Corpuscular Volume 93.2 fL (81-99); Mean Platelet Vol. 10.6 fl (6.2-12.0); Platelet Count 208 K/mm3 (150-450); RBC Distribution Width CV 14.5 % (11.6-14.6); RBC Distribution Width SD 49.6 fl (35.1-43.9); White Blood Count 14.6 K/mm3 (4.4-11.0)
[2020-02-04 07:12] LABS: ALB/GLOB Ratio 0.8 RATIO (0.9-2.4); AST(SGOT) 11 U/L (15-37); Alanine Aminotransfer ALT/SGPT 13 U/L (13-56); Albumin, Serum 3.1 g/dL (3.2-5.0); Alkaline Phosphatase 81 U/L (45-117); Anion Gap 7 (5-15); BUN 10 mg/dL (7-18); BUN/Creat Ratio 14.4 RATIO (10-20); Calcium,Total 8.5 mg/dL (8.5-10.1); Chloride 103 mmol/L (98-107); Creatinine, Serum 0.69 mg/dL (0.55-1.02); EST Glomerular Filtration Rate 99 mL/min (>60); Est Glom Filt Rate - Afr Amer 120 mL/min (>60); Estimated Creatinine Clearance 81.78 ml/min; Globulin 3.8 g/dL (2.2-4.2); Glucose 78 mg/dL (74-106); Lipase 1636 U/L (73-393); Potassium 3.3 mmol/L (3.5-5.1); Protein, Total 6.9 g/dL (6.4-8.2); Sodium Level 134 mmol/L (136-145)
[2020-02-04 08:08] VITALS: O2SAT 97
[2020-02-04 08:10] VITALS: BP 106/69; PULSE 103; RESP 18; TEMP 37.1; O2SAT 99
--- NOTE | 2020-02-04 08:43 | PN_ITS ---
Patient Problems: Active and Suspected Problems (Last Reviewed 12/14/19 @ 10:[address] Jay Cueto MD) Acute pancreatitis (Acute) Subjective: Patient with no acute events overnight per self and per nursing report. She notes that she is tolerated some Jell-O and some clear liquids but still having epigastric pain although improved from initial ED presentation. She is very reticent to transition and eat more. She denies any recurrent significant nausea or emesis events. Discussed labs including improving lipase. Patient a menable to planned continue oral intake and if able to tolerate and advance without issue would plan discharge to home although suspect likely in a.m. 02/05/2020. Patient denies fevers, chills, chest pain or dyspnea. Objective: Physical Examination: General: awake, alert, oriented x 3 and cooperative, seated upright in medical surgical bed in no apparent distress fatigued appearing. Skin: normal color, turgor, no icterus, cyanosis. HEENT: AT/NC, EOMI, PERRLA, dry MM. Lungs: CTA bilaterally, moderate effort, mild decrease BL bases, no rales, ronchi or wheezing. Heart: Regular rate and rhythm; no gallop, rub audible. Abdomen: soft, obese, mild epigastric tenderness to palpation but no rebound or guarding, ND, mildly hypoactive BS. Extremities: no cyanosis, clubbing, or edema. Neurological: patient awake, alert, oriented x 3; cognitive function intact; pupils equally reactive to light and accomodation; cranial nerves II-XII grossly normal, moving all 4 extremities, no focal deficits, strength moderately globally Sue secondary to acute presentation. Psychiatric: affect appears fatigued, no acute evidence of depressive or anxiety feelings. Vitals/I&O's: Vital Signs Temp Pulse Resp BP Pulse Ox 98.8 F 103 H 18 106/69 99 02/04/20 08:10 02/04/20 08:10 02/04/20 08:10 02/04/20 08:10 02/04/20 08:10 Oxygen Delivery Method Room Air Weight: 190 lb 11.198 oz Body Mass Index (BMI) 36.0 Intake and Output for Last 24 Hours 02/02/20 02/03/20 02/04/20 23:59 23:59 23:59 Intake Total 3510 / 3560 3300 / 3300 400 / 400 Output Total 100 / 150 50 / 50 50 / 50 Balance 3410 / 3410 3250 / 3250 350 / 350 Laboratory Results 02/03/20 17:38: Lipase 4682 H 02/04/20 06:26: WBC 14.6 H, RBC 3.80 L, Hgb 11.2 L, Hct 35.4 L, MCV 93.2, MCH 29.5, MCHC 31.6 L, RDW Std Deviation 49.6 H, RDW Coeff of Shun 14.5, Plt Count 208, MPV 10.6 02/04/20 06:26: Sodium 134 L, Potassium 3.3 L, Chloride 103, Carbon Dioxide 24.0, Anion Gap 7, BUN 10, Creatinine 0.69, Estim Creat Clear Calc 81.78, Est GFR (MDRD) Af Amer 120, Est GFR (MDRD) Non-Af 99, BUN/Creatinine Ratio 14.4, Glucose 78, Calcium 8.5, Total Bilirubin 0.90, AST 11 L, ALT 13, Alkaline Phosphatase 81, Total Protein 6.9, Albumin 3.1 L, Globulin 3.8, Albumin/Globulin Ratio 0.8 L, Lipase 1636 H Current Medications Acetaminophen (Tylenol) 650 mg PO Q6H PRN PRN PRN Reason: Pain Score 1-10/Temp > 100.7 F Last Admin: 02/02/20 03:40 Dose: 650 mg Documented by: Al Hydroxide/Mg Hydroxide (Mylanta Ii) 30 ml PO Q6H PRN PRN PRN Reason: Gastric Burning Last Admin: 02/02/20 07:01 Dose: 30 ml Documented by: Albuterol Sulfate (Ventolin Aerosols) 2.5 mg INHALATION Q4H PRN PRN PRN Reason: Wheezing Last Admin: 02/02/20 23:29 Dose: 2.5 mg Documented by: Diphenhydramine HCl (Benadryl) 25 mg PO QHS PRN PRN PRN Reason: INSOMNIA Last Admin: 02/03/20 21:25 Dose: 25 mg Documented by: Doxazosin Mesylate (Cardura) 1 mg PO QHS [facility] Last Admin: 02/03/20 21:16 Dose: 1 mg Documented by: Pantoprazole Sodium 40 mg/ (Sodium Chloride) 110 mls @ 330 mls/hr IV Q24 [facility] Last Admin: 02/04/20 08:11 Dose: 330 mls/hr Documented by: Magnesium Hydroxide (Milk Of Magnesia) 30 ml PO DAILY PRN PRN PRN Reason: Constipation Last Admin: 02/03/20 05:32 Dose: 30 ml Documented by: Melatonin (Melatonin) 3 mg PO QHS PRN PRN PRN Reason: INSOMNIA Last Admin: 02/02/20 21:08 Dose: 3 mg Documented by: Nicotine (Nicoderm Cq (Pbkc)) 14 mg TRANSDERM. DAILY [facility] Last Admin: 02/04/20 08:26 Dose: Not Given Documented by: Non-Formulary Medication (Clindamycin Hcl) 300 mg PO 4X/DAY [facility] Ondansetron HCl (Zofran) 4 mg IV Q6H PRN PRN PRN Reason: NAUSEA/VOMITING Last Admin: 02/03/20 03:25 Dose: 4 mg Documented by: Oxycodone HCl (Oxyir) 5 - 10 mg PO Q4H PRN PRN PRN Reason: Pain Score 4-10/10 Potassium Chloride (K-Dur) 20 meq PO BIDCM [facility] Last Admin: 02/04/20 08:11 Dose: 20 meq Documented by: Potassium Chloride (K-Dur) 20 meq PO X1 ONE Stop: 02/04/20 08:43 Sodium Chloride () 10 - 40 ml IV UD PRN PRN Reason: SALINE FLUSH Last Admin: 02/03/20 12:22 Dose: 10 ml Documented by: STROKE Vital Signs/Narrative: Vital Signs Temp Pulse Resp BP Pulse Ox 02/04/20 08:10 98.8 F 103 H 18 106/69 99 02/04/20 08:08 97 Medical Necessity - Tobacco Use Smoking Status: Current some day smoker Tobacco Use: Non-smoker Assessment/Plan All Active Problems (Last Reviewed 12/14/19 @ 10:[address] Jay Cueto MD) Acute pancreatitis (Acute) Right flank pain (Resolved) The patient is a 39 y/o F w/ PMHx: Obesity, Chronic Pain Syndrome, Migraines, Known Lung Nodules, Hx Uterine CA, Hx Nephrolithiasis, Tobacco use, Anxiety and Depression with Suspected Bipolar disorder recently started on seroquel and sertraline, Recent Dental evaluation with Infection on clindamycin with planned upcoming removal in 4-6 weeks per patient report who presents to the [facility] ED on 02/01/20 with intermittent epigastric pain as well as nausea without emesis. 1. Acute pancreatitis w/ abdominal pain, N/V: Admission CBC w/ WBC 13.7 with left shift, CMP w/ no market findings, Lipase initially 840 however following admission continue to rise. Patient admitted to medical surgical floor, and maintained on IV fluids, initially n.p.o. status with transition to clears on 02/03/2020, lipase trended with repeat trending 840 -> 2353--> 4682-->02/04/20 1636 with continued normal liver functions, CT abdomen and pelvis with 2 mm nonobstructing right lower pole renal stone, cystic structure right lower pelvis measuring up to 2 cm suspected to be residual ovarian tissue, multiple stable cystic liver lesions, status post cholecystectomy, denies alcohol intake being heavy, recently initiated Seroquel and possibly sertraline as etiology for pancreatitis therefore will hold and continue treatment as noted. If patient clinically improves and diet can be advanced will plan discharge to home. 2. Hypokalemia: 02/04/2020 K+ 3.3, magnesium level normal, supplementation given, repeat level in AM. 3. Chronic normocytic anemia: Admission hemoglobin 12.5, repeat 02/04/2020 11.2, baseline appears 11-12, stable, trend. 4. Anxiety and depression, suspected bipolar disorder: Given patient acute presentation as noted #1, acute pancreatitis, Seroquel had been held however wi ll also hold patient sertraline as this can be associated with pancreatitis as well. These agents were recently started and patient denied any history of severe liliana or severe depression or suicidal ideation therefore feel she is low risk for discontinuation with planned outpatient follow-up with her psychiatrist. 5. Dental infection, recently diagnosed: We will continue patient clindamycin and encourage continued follow-up with dental residency program with planned resection of this tooth per her report. 6. Tobacco Abuse: Encouraged cessation, inpatient consultation per RT, NR if desired. 7. History of uterine cancer: Status post hysterectomy, noted possible residual ovarian tissue, encourage continued outpatient follow-up. 8. Chronic pain syndrome: Not on chronic regimen outpatient, encourage continued outpatient follow-up, complicates presentation. 9. GERD: We will maintain on PPI but transition to oral regimen. 10. Chronic insomnia, possibly chronic nightmares: We will continue patient home prazosin regimen. 11. Obesity: Weight loss and lifestyle changes encouraged. 12. DVT prophylaxis: Low risk, encourage ambulation. Inpatient E&M: 40905 Subs Hosp L2
[2020-02-04] MEDS: 0.9% Saline Lock 10 ML Syringe IV ×2 (11:12→20:26)
[2020-02-04] MEDS: Clindamycin HCl 150 MG Capsule 300 MG PO ×4 (11:12→21:03)
--- NOTE | 2020-02-04 13:06 | CASEMGMT ---
VIN XAVIER assessment: Face to Face with patient for initial transition planning/care coordination assessment. VIN XAVIER introduced self and role at [facility], pt voices understanding and consents to assessment at this time. Pt is sitting up in chair in no distress on room air at this time. Pt is A/Ox4 at this time and answers all questions appropriately at this time. Care providers, pharmacy, and demographics verified at this time. Presentation: Abd pain all over Admitting dx: Acute pancreatitis PCP: [facility] Specialists: Pt states no current specialists. Preferred [facility]acy: [facility] Insurance: [employer] Prescription Benefit: [employer] Living Will/HPOA: Pt states does not have LW/HPOA and declines info at this time. LNOK: Kenisha Ochoa, mother Living Arrangements: Pt states lives with boyfriend in apartment and states no concerns at home at this time. Pt states is independent with ADL's. Transportation: Pt states states no transportation concerns at this time. DME/HHC: Pt states no current DME and denies need for any at this time. Pt states no hx of HHC or SNF in the past. Pt states no concerns with going home at time of discharge. Pt states is unemployed. Pt states is quitting smoking cigarettes and does not drink ETOH. Pt states no further questions/concerns/needs at this time. CM to follow for any further discharge planning/needs. Advised pt to ask for CM if any further questions/concerns/needs arise, voices understanding. Pt Goal: Home Plan[place]
[2020-02-04 14:03] VITALS: BP 114/69; PULSE 104; RESP 18; TEMP 37; O2SAT 98
[2020-02-04 20:15] VITALS: BP 122/69; PULSE 88; RESP 18; TEMP 36.4; O2SAT 100
[2020-02-04] MEDS: Ondansetron 4 MG/2 ML Vial IV (20:26)
[2020-02-04] MEDS: DiphenhydrAMINE 25 MG Capsule PO (21:03)
[2020-02-04] MEDS: MELATONIN 3 MG TABLET PO (21:04)
[2020-02-04] MEDS: Doxazosin 1 MG Tablet PO (21:05)
[2020-02-04] MEDS: Pantoprazole Sodium 20 MG Tablet PO (21:08)
[2020-02-05] MEDS: oxyCODONE 5 MG Tablet PO ×2 (02:21→06:44)
[2020-02-05 02:22] VITALS: BP 121/61; PULSE 92; RESP 18; TEMP 36.6; O2SAT 100
[2020-02-05 06:06] LABS: Hematocrit 33.9 % (37-47); Hemoglobin 10.8 g/dL (12.0-15.0); Mean Corp Hgb Conc 31.9 g/dL (32-36); Mean Corpuscular Hgb 29.7 pg (27.0-32.0); Mean Corpuscular Volume 93.1 fL (81-99); Mean Platelet Vol. 10.5 fl (6.2-12.0); Platelet Count 222 K/mm3 (150-450); RBC Distribution Width CV 14.2 % (11.6-14.6); RBC Distribution Width SD 48.2 fl (35.1-43.9); Red Blood Count 3.64 M/mm3 (4.2-5.4); White Blood Count 12.2 K/mm3 (4.4-11.0)
[2020-02-05 06:29] LABS: ALB/GLOB Ratio 0.6 RATIO (0.9-2.4); AST(SGOT) 7 U/L (15-37); Alanine Aminotransfer ALT/SGPT 13 U/L (13-56); Albumin, Serum 2.8 g/dL (3.2-5.0); Alkaline Phosphatase 81 U/L (45-117); Anion Gap 7 (5-15); BUN 12 mg/dL (7-18); BUN/Creat Ratio 16.7 RATIO (10-20); Calcium,Total 8.5 mg/dL (8.5-10.1); Chloride 101 mmol/L (98-107); Creatinine, Serum 0.72 mg/dL (0.55-1.02); EST Glomerular Filtration Rate 95 mL/min (>60); Est Glom Filt Rate - Afr Amer 115 mL/min (>60); Estimated Creatinine Clearance 78.38 ml/min; Globulin 4.5 g/dL (2.2-4.2); Glucose 78 mg/dL (74-106); Lipase 584 U/L (73-393); Potassium 3.6 mmol/L (3.5-5.1); Protein, Total 7.3 g/dL (6.4-8.2); Sodium Level 132 mmol/L (136-145)
[2020-02-05] MEDS: Ondansetron 4 MG/2 ML Vial IV (06:45)
[2020-02-05] MEDS: 0.9% Saline Lock 10 ML Syringe IV (06:45)
--- NOTE | 2020-02-05 08:29 | DCINST_ITS ---
- Discharge Diagnoses Current Active Problems: Current Active and Chronic Problems (Last Reviewed 12/14/19 @ 10:[address] Jay Cueto MD) 1. Acute pancreatitis w/ abdominal pain, N/V possible secondary to recently added seroquel and sertraline 2. Hypokalemia 3. Chronic normocytic anemia 4. Anxiety and depression, ? bipolar disorder 5. Dental infection, recently diagnosed 6. Tobacco Abuse 7. History of uterine cancer 8. Chronic pain syndrome 9. GERD 10. Chronic insomnia 11. Obesity You will use the following diet at home:: Other - Please continue maximum full liquid diet or small regularly timed snacks if tolerate better for the next 2-3 days and slowly transition to low fat/low cholesterol diet. Your food should be the consistency of: Regular Your liquids should be the consistency of: Regular/Thin Discharge Activity: May not drive while taking narcotic pain medications., - - Advance activity as you improvement. Regular movement and out of bed with all meals is recommended even upon discharge. May resume sexual activity in: No Restrictions Weight Bearing Status: Weight bearing as tolerated Call your doctor if you observe: Fever of 101 or Higher, Inability to urinate, Inability to have a bowel movement, Shortness of breath, Dizziness, Fainting spells, Chest pain, Uncontrolled pain Instructions: Understanding Pancreatitis, Acute Pancreatitis Allergies/Adverse Reactions: Allergies ketorolac tromethamine [From Toradol] Allergy (Verified 02/01/20 14:40) Rash metronidazole [From Flagyl] Allergy (Verified 02/01/20 14:40) Hives Penicillins Allergy (Verified 02/01/20 14:40) Hives promethazine HCl [From Phenergan] Allergy (Verified 02/01/20 14:40) Hives aspirin Adverse Reaction (Verified 02/01/20 14:40) Upset Stomach CT DYE Allergy (Uncoded 01/15/20 00:34) Anaphylaxis IV contrast Allergy (Uncoded 01/15/20 00:34) Anaphylaxis Medications to take at Discharge Albuterol Inhaler [Ventolin Hfa] 2 puff INHALATION Q4H PRN PRN #1 inhaler 11/19/19 prazosin 1 mg capsule 1 mg PO QHS 12/14/19 Acetaminophen [Tylenol Extra Strength] 500 mg PO Q6H PRN PRN 02/01/20 Clindamycin HCl 300 mg PO 4X/DAY 02/01/20 Nicotine [Nicoderm] 14 mg TRANSDERM. DAILY 02/01/20 Ondansetron HCl [Zofran] 4 mg PO Q8H PRN PRN #20 tab 02/05/20 Oxycodone [Oxyir] 10 mg PO Q4H PRN PRN 5 Days #60 tablet 02/05/20 Pantoprazole Sodium [Protonix] 20 mg PO BID #60 tab 02/05/20 The following prescriptions were given: Oxycodone [Oxyir] 10 mg PO Q4H PRN PRN 5 Days #60 tablet PRN Reason: severe pain Transmission Status: Received by [facility] [facility] Pantoprazole Sodium [Protonix] 20 mg PO BID #60 tab [facility]: [facility] [facility] Ondansetron HCl [Zofran] 4 mg PO Q8H PRN PRN #20 tab PRN Reason: nausea, emesis Transmission Status: Pending to [facility] [facility] Primary Care Physician: Isabel Arias PA [Primary Care Provider] - Please follow up with your Primary Care Physician in: Follow-up within 3-5 days to review admission. Test Results: Test results from this visit will be discussed in further detail at your follow- up appointment, if applicable. Please Follow Up With: Psychiatry When: Please update your psychiatrist of recent medication discontinuations. Please Follow Up With: Dentist,Your When: Please continue your planned upcoming re-evaluation with dentist. Proposed Discharge Date: 02/05/20
--- NOTE | 2020-02-05 08:33 | DS.PCM_ITS ---
Discharge Date and Diagnosis - Problem List Patient Problems: Active and Suspected Problems (Last Reviewed 12/14/19 @ 10:[address] Jay Cueto MD) Acute pancreatitis (Acute) Date of Admission: 02/01/20 Date of Discharge: 02/05/20 - Primary Discharge Diagnosis Acute Problems: Active Problems (Last Reviewed 12/14/19 @ 10:[address] Jay Cueto MD) 1. Acute pancreatitis w/ abdominal pain, N/V possible secondary to recently added seroquel and sertraline 2. Hypokalemia 3. Chronic normocytic anemia 4. Anxiety and depression, ? bipolar disorder 5. Dental infection, recently diagnosed 6. Tobacco Abuse 7. History of uterine cancer 8. Chronic pain syndrome 9. GERD 10. Chronic insomnia 11. Obesity - Secondary Discharge Diagnosis Chronic Problems: Chronic Problems (Last Reviewed 12/14/19 @ 10:[address] Jay Cueto MD) Anxiety (Chronic) Bipolar disorder (Chronic) PUD (peptic ulcer disease) (Chronic) according to pt Syncope (Chronic) Chest pain (Chronic) Dyspnea (Chronic) Incomplete right bundle branch block (Chronic) Hyperlipidemia (Chronic) Lung nodule (Chronic) History of uterine cancer (Chronic 2006) Hospital Course and Treatment Operations: None Procedures: EKG Summary of Care Provided: The patient is a 39 y/o F w/ PMHx: Obesity, Chronic Pain Syndrome, Migraines, Kn own Lung Nodules, Hx Uterine CA, Hx Nephrolithiasis, Tobacco use, Anxiety and Depression with Suspected Bipolar disorder recently started on seroquel and sertraline, Recent Dental evaluation with Infection on clindamycin with planned upcoming removal in 4-6 weeks per patient report who presented to the [facility] ED on 02/01/20 with intermittent epigastric pain as well as nausea without emesis. Admission CBC w/ WBC 13.7 with left shift, CMP w/ no market findings, Lipase initially 840 however following admission continue to rise. Patient admitted to medical surgical floor, and maintained on IV fluids, initially n.p.o. status with transition to clears on 02/03/2020, lipase trended with repeat trending 840 -> 2353--> 4682-->02/04/20 1636-->02/05/20 lipase 584 with continued normal liver functions, CT abdomen and pelvis with 2 mm nonobstructing right lower pole renal stone, cystic structure right lower pelvis measuring up to 2 cm suspected to be residual ovarian tissue, multiple stable cystic liver lesions, status post cholecystectomy, denies alcohol intake being heavy, recently initiated Seroquel and possibly sertraline as etiology for pancreatitis therefore held with recommended early follow-up with psychiatric. She denied any severe depression or manic phases prior nor any suicidal ideations. Patient as noted with ercent acute dental infection, thus continued patient clindamycin and encourage continued follow-up with dental residency program with planned resection of this tooth per her report. Patient clinically improved, tolerated clears and fulls eventually with improved pain thus discharged to home with primary care follow- up as well as requested continued evaluation early with psychiatry and dental as previously arranged. DAY OF DISCHARGE PROGRESS NOTE: Subjective: Patient without acute event overnight per self and nursing report. Patient tolerating transition to full liquids and notes that abdominal discomfort has improved even since the day prior. Patient denies fever, chills, emesis, chest pain or dyspnea. Patient agreeable to discharge to home given improvement. Patient will be discharged with follow-up with primary care physician within 3-5 days in addition to early follow-up with psychiatry given discontinuation of patient's sertraline and Seroquel as concerned that may be associate with pancreatitis and continued follow-up with dentistry. Objective: T 98, heart rate 92, BP 121/61, respiratory rate 18, on a percent room air. Physical Examination: General: awake, alert, oriented x 3 and cooperative, seated upright in medical surgical bed in no apparent distress, less fatigued appearing, more comfortable. Skin: normal color, turgor, no icterus, cyanosis. HEENT: AT/NC, EOMI, PERRLA, proved MMM. Lungs: CTA bilaterally, moderate effort, mild decrease BL bases, no rales, ronchi or wheezing. Heart: Regular rate and rhythm; no gallop, rub audible. Abdomen: soft, obese, markedly improved epigastric discomfort, no rebound or g uarding, nondistended, normalized bowel sounds. Extremities: no cyanosis, clubbing, or edema. Neurological: patient awake, alert, oriented x 3; cognitive function intact; pupils equally reactive to light and accomodation; cranial nerves II-XII grossly normal, moving all 4 extremities, no focal deficits, strength proved, mildly globally decreased. Psychiatric: affect appears less fatigued or comfortable than day prior, no acute evidence of depressive or anxiety feelings. Assessment and Plan: Please see hospital summary above. Patient Problems: Active and Suspected Problems (Last Reviewed 12/14/19 @ 10:[address] Jay Cueto MD) Acute pancreatitis (Acute) - Physical Exam Vitals/I&O's: Vital Signs Temp Pulse Resp BP Pulse Ox 98 F 92 18 121/61 H 100 02/05/20 02:22 02/05/20 02:22 02/05/20 02:22 02/05/20 02:22 02/05/20 02:22 Oxygen Delivery Method Room Air Weight: 190 lb 11.198 oz Body Mass Index (BMI) 36.0 Intake and Output for Last 24 Hours 02/03/20 02/04/20 02/05/20 23:59 23:59 23:59 Intake Total 3300 / 3300 760 / 960 400 / 400 Output Total 50 / 50 50 / 50 Balance 3250 / 3250 710 / 910 400 / 400 Laboratory Results 02/05/20 05:50: WBC 12.2 H, RBC 3.64 L, Hgb 10.8 L, Hct 33.9 L, MCV 93.1, MCH 29.7, MCHC 31.9 L, RDW Std Deviation 48.2 H, RDW Coeff of Shun 14.2, Plt Count 222, MPV 10.5 02/05/20 05:50: Sodium 132 L, Potassium 3.6, Chloride 101, Carbon Dioxide 24.0, Anion Gap 7, BUN 12, Creatinine 0.72, Estim Creat Clear Calc 78.38, Est GFR (MDRD) Af Amer 115, Est GFR (MDRD) Non-Af 95, BUN/Creatinine Ratio 16.7, Glucose 78, Calcium 8.5, Total Bilirubin 0.60, AST 7 L, ALT 13, Alkaline Phosphatase 81, Total Protein 7.3, Albumin 2.8 L, Globulin 4.5 H, Albumin/Globulin Ratio 0.6 L, Lipase 584 H Current Medications Acetaminophen (Tylenol) 650 mg PO Q6H PRN PRN PRN Reason: Pain Score 1-10/Temp > 100.7 F Last Admin: 02/02/20 03:40 Dose: 650 mg Documented by: Al Hydroxide/Mg Hydroxide (Mylanta Ii) 30 ml PO Q6H PRN PRN PRN Reason: Gastric Burning Last Admin: 02/02/20 07:01 Dose: 30 ml Documented by: Albuterol Sulfate (Ventolin Aerosols) 2.5 mg INHALATION Q4H PRN PRN PRN Reason: Wheezing Last Admin: 02/02/20 23:29 Dose: 2.5 mg Documented by: Clindamycin HCl (Cleocin) 300 mg PO 4X/DAY [facility] Last Admin: 02/04/20 21:03 Dose: 300 mg Documented by: Diphenhydramine HCl (Benadryl) 25 mg PO QHS PRN PRN PRN Reason: INSOMNIA Last Admin: 02/04/20 21:03 Dose: 25 mg Documented by: Doxazosin Mesylate (Cardura) 1 mg PO QHS [facility] Last Admin: 02/04/20 21:05 Dose: 1 mg Documented by: Magnesium Hydroxide (Milk Of Magnesia) 30 ml PO DAILY PRN PRN PRN Reason: Constipation Last Admin: 02/03/20 05:32 Dose: 30 ml Documented by: Melatonin (Melatonin) 3 mg PO QHS PRN PRN PRN Reason: INSOMNIA Last Admin: 02/04/20 21:04 Dose: 3 mg Documented by: Nicotine (Nicoderm Cq (Pbkc)) 14 mg TRANSDERM. DAILY [facility] Last Admin: 02/04/20 08:26 Dose: Not Given Documented by: Ondansetron HCl (Zofran) 4 mg IV Q6H PRN PRN PRN Reason: NAUSEA/VOMITING Last Admin: 02/05/20 06:45 Dose: 4 mg Documented by: Oxycodone HCl (Oxyir) 5 - 10 mg PO Q4H PRN PRN PRN Reason: Pain Score 4-10/10 Last Admin: 02/05/20 06:44 Dose: 10 mg Documented by: Pantoprazole Sodium (Protonix) 20 mg PO BID [facility] Last Admin: 02/04/20 21:08 Dose: 20 mg Documented by: Potassium [facility] ([facility]Dur) [facility] Last Admin: 02/04/20 16:52 Dose: 20 meq Documented by: Sodium Chloride () 10 - 40 ml IV UD PRN PRN Reason: SALINE FLUSH Last Admin: 02/05/20 06:45 Dose: 10 ml Documented by: Discharge Activity: May not drive while taking narcotic pain medications., - - Advance activity as you improvement. Regular movement and out of bed with all meals is recommended even upon discharge. May resume sexual activity in: No Restrictions Weight Bearing Status: Weight bearing as tolerated Call your doctor if you observe: Fever of 101 or Higher, Inability to urinate, Inability to have a bowel movement, Shortness of breath, Dizziness, Fainting spells, Chest pain, Uncontrolled pain Home Medications: Medications to take at Discharge Albuterol Inhaler [Ventolin Hfa] 2 puff INHALATION Q4H PRN PRN #1 inhaler 11/19/19 prazosin 1 mg capsule 1 mg PO QHS 12/14/19 Acetaminophen [Tylenol Extra Strength] 500 mg PO Q6H PRN PRN 02/01/20 Clindamycin HCl 300 mg PO 4X/DAY 02/01/20 Nicotine [Nicoderm] 14 mg TRANSDERM. DAILY 02/01/20 Ondansetron HCl [Zofran] 4 mg PO Q8H PRN PRN #20 tab 02/05/20 Oxycodone [Oxyir] 10 mg PO Q4H PRN PRN 5 Days #60 tablet 02/05/20 Pantoprazole Sodium [Protonix] 20 mg PO BID #60 tab 02/05/20 Following Prescrptions Were Given to Patient: Oxycodone [Oxyir] 10 mg PO Q4H PRN PRN 5 Days #60 tablet PRN Reason: severe pain Transmission Status: Received by [facility] [facility] Pantoprazole Sodium [Protonix] 20 mg PO BID #60 tab Transmission Status: Pending to [place] [address] [facility] Ondansetron HCl [Zofran] 4 mg PO Q8H PRN PRN #20 tab PRN Reason: nausea, emesis Transmission Status: Pending to [facility] Primary Care Physician: Isabel Arias PA [Primary Care Provider] - Please follow up with your Primary Care Physician in: Follow-up within 3-5 days to review admission. Please Follow Up With: Psychiatry When: Please update your psychiatrist of recent medication discontinuations. Please Follow Up With: Dentist,Your When: Please continue your planned upcoming re-evaluation with dentist. Patient Instructions: Understanding Pancreatitis, Acute Pancreatitis Disposition: Home Minutes spent on discharge:: 35 Patient Condition:: Fair Medical Necessity - Tobacco Use Smoking Status: Current some day smoker Tobacco Use: Non-smoker Meaningful Use Info Meaningful Use Diagnoses (Choose all that apply): None applicable Inpatient E&M: 94239 Disch Hosp
[2020-02-05 09:00] VITALS: BP 109/74; PULSE 99; RESP 18; TEMP 36.7; O2SAT 96
[2020-02-05] MEDS: Clindamycin HCl 150 MG Capsule 300 MG PO (09:06)
[2020-02-05] MEDS: Pantoprazole Sodium 20 MG Tablet PO (09:09)
--- NOTE | 2020-02-07 12:14 | CASEMGMT ---
VIN CM DC PHONE CALL DC DATE: 02.05.2020 DC DISPOSITION: Home DC DIAGNOSIS: Pancreatitis LACE/STRATA: 24/11 F/U APPTS MADE PRIOR TO DC: NO PRESCRIPTIONS ACQUIRED BY PT: yes Intro role of CM to patient via phone. PT short with answers, call limited. Pt has medications, no questions. Pt states she is feeling better. Antony RAMESHN RN ACM
--- OUTSIDE RECORDS SUMMARY | 2020-06-26 14:48 | XMS RPT_ITS | CCD ---
:1980 External Reference #:[id number] Author Organization [facility] Care Team Providers Name Role Phone Hanna Mejia Primary Care Provider Hanna Mejia Unavailable JEAN, E Admitting Unavailable JEANShiva RICE Attending Unavailable MD ROOSEVELT Referring Unavailable Shiva LORD Primary Care Unavailable CHAZ ARIAS Consulting Unavailable PROVIDER Consulting Unavailable MD JENNIFER Admitting Unavailable MD JENNIFER Attending Unavailable MD JENNIFER Primary Care Unavailable CHAZ ARIAS Consulting Unavailable CHAZ ARIAS Referring Unavailable PROVIDER Consulting Unavailable MD JENNIFER Admitting Unavailable MD JENNIFER Attending Unavailable MD JENNIFER Primary Care Unavailable CHAZ ARIAS Consulting Unavailable CHAZ ARIAS Referring Unavailable PROVIDER Consulting Unavailable Christopher BAH Admitting Unavailable Christopher BAH Attending Unavailable Christopher BAH Primary Care Unavailable CHAZ ARIAS Consulting Unavailable CHAZ ARIAS Referring Unavailable PROVIDER Consulting Unavailable Allergies Reported Allergen Reaction(s) Severity Date of Location Onset Aspirin Moderate [facility] Rep[facility] (Qualifier Value) Cephalexin Itching 10-20-2019 - [facility] ([id number]) Chlorhexidine Rash 10-29-2016 - [facility] ([id number]) CONTRAST MEDIA, Moderate Mello Pomeren e IODINE RELATED ([facility]) Repository (Qualifier Value) Ibuprofen GI Upset Low 06-18-2016 - [facility] ([id number]) Ibuprofen Moderate [facility]) Repository (Qualifier Value) Iodine Shortness of Breath Low 05-17-2008 - [facility] ([id number]) Ketorolac Moderate [facility]) Repository (Qualifier Value) Ketorolac Rash 05-25-2020 - [facility] ([id number]) metroNIDAZOLE Moderate [facility] ([facility]) Repository (Qualifier Value) Penicillins [facility][id number][facility] Penicillins Moderate [facility] ([facility]) Repository (Qualifier Value) predniSONE Other: See Comments Low 06-18-2016 - [facility] ([id number]) Promethazine Moderate [facility] ([facility]) Repository (Qualifier Value) Salicylic Acid Other: See Comments Low 01-27-2011 - [facility] ([id number]) traMADol Rash 05-25-2020 - [facility] (30790) Medications Medication Name Sig Date Prescriber Location Albuterol albuterol HFA (VENTOLIN [facility] Provider [facility] ([id number]) HFA) 90 mcg/actuation inhaler Inhale 2 Puffs as instructed every 4 hours as needed. 0 Active Comment: Inhale 2 Puffs as instructed every 4 hours as needed. Bifidobacterium Bifidobacterium 04-26-2020 - Johnny [facility] (ALIGN) 4 mg 07-25-2020 [facility] ([id number]) cap Take 1 capsule by mouth once daily. 30 capsule 2 04/26/2020 07/25/2020 Active Comment: Take 1 capsule by mouth once daily. Clindamycin clindamycin (CLEOCIN) 06-15-2020 - Jonh (Res) [facility] 300 mg capsule 06-26-2020 [facility] ([id number]) Indications: Incisional infection Take 1 capsule by mouth four times daily for 5 days. 20 capsule 0 06/21/2020 06/26/2020 Active Comment: Take 1 capsule by mouth four times daily for 5 days. diazePAM diazePAM (VALIUM) 5 mg 06-05-2020 [facility] tablet Indications: 06-07-2020 Mala [facility] ([id number]) Pancreatic cyst Take 1 tablet by mouth once daily for 2 days. 2 tablet 0 06/05/2020 06/07/2020 Active Comment: Take 1 tablet by mouth once daily for 2 days. Dicyclomine dicyclomine (BENTYL) 04-26-2020 - Johnny Mccall [facility] 10 mg capsule Take 1 05-24-2020 [facility] ([id number]) capsule by mouth before meals and at bedtime. Use as directed 90 capsule 1 04/26/2020 05/24/2020 Discontinued Comment: Take 1 capsule by mouth befo re meals and at bedtime. Use as directed diphenhydrAMINE diphenhydrAMINE (BENADRYL) 03-29-2019 [facility] Provide r [facility] 25 mg capsule Take 50 mg ([id number]) by mouth every 6 hours as needed. 0 03/29/2019 Active Comment: Take 50 mg by mouth every 6 hours as needed. Docusate docusate sodium 06-21-2020 Jonh (Res) [facility] (COLACE) 100 mg capsule Bertke (441 95) Take 1 capsule by mouth twice daily. 60 capsule 0 06/21/2020 Active Comment: Take 1 capsule by mouth twic e daily. Estradiol estradiol (ESTRACE) 2 mg 03-23-2020 [facility] Provider [facility] ([id number]) tablet Take 2 mg by mouth once daily. 0 03/23/2020 Active Comment: Take 2 mg by mouth once kehinde y. HYDROmorphone HYDROmorphone 06-12-2020 - Mala Almendarez [facility] nghia (HYDROMORPHONE) 2 mg 06-19-2020 ([id number]) tablet Indications: Post-op pain Take 1 tablet by mouth every 3 hours as needed for Pain for up to 7 days. 40 tablet 0 06/12/2020 06/19/2020 Active Comment: Take 1 tablet by mouth every 3 hours as needed for Pain for up to 7 days. Hyoscyamine hyoscyamine (LEVSIN) 05-24-2020 Johnny Mccall [facility] 0.125 mg tablet Take 1 [facility] (4419 5) tablet by mouth every 6 hours as needed. 60 tablet 1 05/24/2020 Active Comment: Take 1 tablet by mouth every 6 hours as needed. iv contrast (will iv contrast (will be 06-05-2020 - Mala Almendarez [facility] be provided with provided with 06-06-2020 Mala Almendarez ([id number]) radiology test) radiology test) MRI ABDOMEN Inject, intravenously, once for 1 dose. No IV access, insert saline lock prior to the beginning of sedation, infusion, injection of imaging exam. Discontinue saline lock post exam. If Pt. has a central line or IVAD, may access for administration according to line specific nursing protocol. Once exam is complete flush line and de-access according to line specific nursing protocol in the MR contrast administration guidelines link. 1 Each 0 06/05/2020 06/06/2020 Active Comment: MRI ABDOMEN Inject, intraven ously, once for 1 dose. No IV access, insert saline lock prior to the beg inning of sedation, infusion, injection of imaging exam. Discontinue sa line lock post exam. If Pt. has a central line or IVAD, may access for admi nistration according to line specific nursing protocol. Once exam is compl ete flush line and de-access according to line specific nursing protocol in the MR contrast administration guidelines link. metroNIDAZOLE metroNIDAZOLE (FLAGYL) 04-26-2020 - Johnny Mccall [facility] 500 mg tablet Take 1 05-03-2020 [facility] (53124) tablet by mouth three times daily for 7 days. 21 tablet 0 04/26/2020 05/03/2020 Active Comment: Take 1 tablet by mouth three times daily for 7 days. Naloxone naloxone 4 mg/actuation 06-21-2020 Jonh (Res) [facility] nasal spray (NARCAN) Use Chad ([id number]) 1 spray in one nostril as needed for overdose. May repeat every 2 to 3 min in alternating nostrils until medical assistance is available 2 Each 0 06/21/2020 Active Comment: Use 1 spray in one nostril a s needed for overdose. May repeat every 2 to 3 min in alternating nostrils until medical assistance is available oxyCODONE oxyCODONE IR 06-21-2020 - Maria Luisa Trejo [facility] (ROXICODONE) 5 mg 06-26-2020 (21506) immediate release tablet Indications: Benign liver cyst Take 1 tablet by mouth every 8 hours as needed for up to 5 days. 15 tablet 0 06/21/2020 06/26/2020 Active oxyCODONE IR 05-29-2020 - Sorin (Res) [facility] (ROXICODONE) 5 mg 06-03-2020 Al[facility] (63351) immediate release tablet Indications: Intractable nausea and vomiting Take 1 tablet by mouth every 6 hours as needed for Pain for up to 5 days. 20 tablet 0 05/29/2020 06/03/2020 Active Comment: Take 1 tablet by mouth every 6 hours as needed for Pain for up to 5 days. Take 1 tablet by mouth every 8 hours as needed for up to 5 days. pantoprazole pantoprazole 03-05-2020 - Marcelino [facility] (PROTONIX) 40 mg 04-30-2020 [facility] (47642) tablet Take 1 tablet by mouth daily before breakfast. Take on empty stomach, 1/2 hr before meal. 30 tablet 3 04/30/2020 Active Comment: Take 1 tablet by mouth daily before breakfast. Take on empty stomach, 1/2 hr before meal. POLYETHYLENE GLYCOL polyethylene glycol 06-21-2020 - Joes (Res ) Kimberly 3350 3350 (MIRALAX) 17 07-22-2020 [facility] (44 195) gram/dose powder Dissolve 1 packet in 4-8 ounces of liquid and drink by mouth once daily as directed. 476 g 0 06/21/2020 07/22/2020 Active Comment: Dissolve 1 packet in 4-8 oun simi of liquid and drink by mouth once daily as directed. POLYETHYLENE GLYCOL peg 3350-Electrolytes 04-26-2020 - Johnny Mccall Kimberly 3350 / Potassium (GOLYTELY) 04-26-2020 [facility] (441 95) Chloride / Sodium [phone] Johnny Mccall Bicarbonate / gram suspension [facility] Sodium Chloride / Indications: sodium sulfate Generalized abdominal pain , Loose stools , Dyspepsia , Gastroesophageal reflux disease, esophagitis presence not specified , Other dysphagia Take 4,000 mL by mouth one time only for 1 dose. Refer to printed prep instructions from your doctor. 1 Bottle 0 04/26/2020 04/26/2020 Active Comment: Take 4,000 mL by mouth one t pretty only for 1 dose. Refer to printed prep instructions from your docto r. Prazosin prazosin (MINIPRESS) 1 mg cap Take 1 [facility] Provider [facility] ([id number]) mg by mouth daily at bedtime. 0 Active Comment: Take 1 mg by mouth daily at bedtime. pregabalin pregabalin (LYRICA) 06-25-2020 - Mala oliver [facility] 300 mg capsule 07-09-2020 Mala Almendarez ([id number]) Indications: Post-op pain Take 1 capsule by mouth twice daily for 14 days. 28 capsule 0 06/25/2020 07/09/2020 Active Comment: Take 1 capsule by mouth twic e daily for 14 days. Promethazine promethazine (PHENERGAN) 05-24-2020 Johnny [facility] 25 mg tablet Take 1 [facility] (52474) tablet by mouth every 8 hours as needed (for nausea). 10 tablet 0 05/24/2020 Active Comment: Take 1 tablet by mouth every 8 hours as needed (for nausea). QUEtiapine QUEtiapine (SEROQUEL) 02-23-2020 Marcelion Mejia [facility] 100 mg tablet Take 1 (47595) tablet by mouth once daily. 0 02/23/2020 Active Comment: Take 1 tablet by mouth once daily. Sertraline sertraline (ZOLOFT) 100 02-23-2020 Marcelino Ferreira [place] [facility] mg tablet Take 1 tablet (441 95) by mouth once daily. 0 02/23/2020 Active Comment: Take 1 tablet by mouth once daily. Sucralfate sucralfate (CARAFATE) 1 05-24-2020 Johnny Mccall Naya hu [facility] gram tablet Take 1 (52715) tablet by mouth four times daily. 30 tablet 0 05/24/2020 Active Comment: Take 1 tablet by mouth four times daily. Problems Active Problems Category Problem Name Status Date Location Abdominal pain Lower abdominal pain, Active 10-31-2019 - [facility]88128[facility] Anxiety disorders Generalized anxiety Active 03-31-2016 - [facility] disorder (27808) Esophageal disorders Gastroesophageal reflux Active [facility] disease (04373) Headache; including Migraine without aura Active 05-17-2008 - [facility] migraine [facility] (46838) Mood disorders Reactive depression Active 03-31-2016 - [facility] (situational) (15580) Nausea and vomiting Nausea and vomiting Active 05-25-2020 - [facility] (61094) Other disorders of Indigestion Active [facility] stomach and duodenum (03853) Other gastrointestinal Diarrhea Active [facility] disorders (09044) Other gastrointestinal Loose stool Active [facility] disorders (70225) Other gastrointestinal Abdominal bloating Active [facility] disorders (04758) Other gastrointestinal Dysphagia Active [facility] disorders (19388) Other gastrointestinal Personal history of Active [facility] disorders other diseases of the (95547 ) digestive system Other infections; Local infection of wound Active [facility] including parasitic (23932) Other liver diseases Liver cyst Active 05-24-2010 - [facility] (94401) Other nervous system Postoperative pain Active 06-19-2020 - [facility] disorders (32673) Other nervous system Chronic pain syndrome Active 06-06-2020 - [facility] disorders (95765) Other non-traumatic joint Shoulder pain Active [facility] disorders (22206) Other upper respiratory Allergic rhinitis Active 05-17-2008 - [facility] disease (13576) Pancreatic disorders (not Idiopathic acute Active [facility] diabetes) pancreatitis (20451) Paralysis Weakness of right leg Active 02-23-2017 - [facility] (68712) Substance-related Smoker Active 05-17-2008 - Mello Pomer willem disorders [facility] (88914) Unclassified Patient encounter status Active 05-17-2008 - [facility] (91614) Past or Other Problems Category Problem Name Status Date Location Allergic reactions Allergy status to Completed 10-31-2019 - Mello Pomerene narcotic agent status [facility] (45259) Blindness and vision Blurring of visual Completed 02-23-2017 - [facility] defects image (28073) Calculus of urinary Kidney stone Completed 05-17-2008 - [facility] tract (64641) Diabetes mellitus Impaired fasting Completed 05-17-2008 - [facility] without complication glycaemia (57581) Miscellaneous mental Adjustment insomnia Completed 03-31-2016 - [facility] health disorders (38005) Other connective tissue Muscle weakness of Completed 02-23-2017 - [facility] disease upper limb (89678) Other connective tissue Trochanteric bursitis Completed 06-18-20 - [facility] disease (56949) Other diseases of Hydroureter Completed 02-05-2017 - [facility] kidney and ureters (42627) Other diseases of Hydronephrosis Completed 02-05-2017 - [facility] kidney and ureters (62176) Other lower respiratory Multiple nodules of Completed 01-22-2020 - [facility] disease lung (89420) Other nervous system Numbness of lower limb Completed 02-23-2017 - [facility] disorders (42033) Other nervous system Numbness of upper limb Completed 02-23-2017 - [facility] disorders (18382) Other nervous system Numbness of face Completed 02-23-2017 - [facility] disorders (35770) Other non-traumatic Hip pain Completed 06-18-2016 - [facility] joint disorders (31155) Other screening for MRI of lumbar spine Completed 02-23-2017 - [facility] suspected conditions abnormal (35018) (not mental disorders or infectious disease) Ovarian cyst Cyst of ovary Completed 07-15-2012 - [facility] (04507) Residual codes; Acquired absence of Completed 10-31-2019 - [facility] unclassified both cervix and uterus [facility] (17832) Residual codes; Acquired absence of Completed 10-31-2019 - [facility] unclassified other specified parts [facility] of digestive tract (41418) Residual codes; FH: Diabetes mellitus Completed 05-17-2008 - [facility] unclassified (55500) Spondylosis; Low back pain Completed 06-18-2016 - [facility] intervertebral disc (69134) disorders; other back problems Results Result Name Value Range Unit Interpretation Flag Date Location obsolete on 2020-06 OBSOLETE Refill ([facility]) Normal 06-25-2020 [facility] SALLY MCGREGOR ([id number]) 1980 F Medical Date Time Provider Department Center 06/25/20 MALA ALMENDAREZ [facility] ([id number]) During your visit today, we recorded the following informati on about you: Allergies As of Date: 06/25/2020 Noted Allergy Reaction PENICILLINS 12/07/2009 2 - Rash CEPHALEXIN 10/20/2019 9 - Itching CHLORHEXIDINE 10/29/2016 2 - Rash Comments: Skin rash TORADOL (KETOROLAC) 05/25/2020 2 - Rash TRAMADOL 05/25/2020 2 - Rash ASA (SALICYLATES) 01/27/2011 14 - Other: See Comments Comments: ulcers CONTRAST DYE (IODINE) 05/17/2008 12 - Shortness of Breath IBUPROFEN 06/18/2016 8 - GI Upset PREDNISONE 06/18/2016 14 - Other: See Comments Comments: makes agitated and mean Date Reviewed: 06/19/2020 Reviewed by: Silvia (Rn) VIN Gomez - Fully Assessed Reason for Visit: Refill Request [94] Primary Visit Diagnosis:Post-op pain [G89.18] Order(s):pregabalin (LYRICA) 300 mg caps uleTake 1 capsule by mouth twice daily for 14 days.Disp: 28 capsuleRfl: 0 Prescriptions as of 06/25/2020 Sig: PREGABALIN 300 MG CAPSULE Take 1 capsule by mouth twice* DOCUSATE SODIUM 100 MG CAPSULE Take 1 capsule by mouth twice * POLYETHYLENE GLYCOL 3350 17 G* Dissolve 1 packet in 4-8 ounc * OXYCODONE 5 MG TABLET Take 1 tablet by mouth every * CLINDAMYCIN HCL 300 MG CAPSULE Take 1 capsule by mouth four * NALOXONE 4 MG/ACTUATION NASAL* Use 1 spray in one nostril as * PRAZOSIN 1 MG CAPSULE Take 1 mg by mouth daily at b* HYOSCYAMINE SULFATE 0.125 MG * Take 1 tablet by mouth every * SUCRALFATE 1 GRAM TABLET Take 1 tablet by mouth four t* PROMETHAZINE 25 MG TABLET Take 1 tablet by mouth every * Patient taking differently: Take 25 mg by mouth every 6 h* PANTOPRAZOLE 40 MG TABLET,DEL* Take 1 tablet by mouth daily * DIPHENHYDRAMINE 25 MG CAPSULE Take 50 mg by mouth every 6 h* SERTRALINE 100 MG TABLET Take 1 tablet by mouth once d* QUETIAPINE 100 MG TABLET Take 1 tablet by mouth once d* Problem List As Of Date 06/25/2020 Noted Resolved Routine gynecological examination [Z01.419] 05/17/2008 Class: Chronic More... More... Family history of diabetes mellitus [Z83.3] 05/17/2008 More... Calculus of kidney [N20.0] 05/17/2008 More... Allergic rhinitis, cause unspecified [J30.9] 05/17/2008 More... Migraine without aura [G43.009] 05/17/2008 More... Smoker [F17.200] 05/17/2008 More... Impaired fasting glucose [R73.01] 05/17/2008 More... Benign liver cyst [K76.89] 05/24/2010 Class: Chronic More... Ovarian cyst [N83.209] 07/15/2012 Generalized anxiety disorder [F41.1] 03/31/2016 Reactive depression [F32.9] 03/31/2016 More... Adjustment insomnia [F51.02] 03/31/2016 Encounter for screening for cardiovascular diso*03/31/2016 Bilateral low back pain without sciatica [M54.5]06/18/2016 More... Pain in left hip [M25.552] 06/18/2016 Greater trochanteric bursitis [M70.60] 06/18/2016 Hydronephrosis of left kidney [N13.30] 02/05/2017 Hydroureter on left [N13.4] 02/05/2017 Right facial numbness [R20.0] 02/23/2017 Right upper extremity numbness [R20.0] 02/23/2017 Numbness of right lower extremity [R20.0] 02/23/2017 Weakness of right upper extremity [R29.898] 02/23/2017 Weakness of right lower extremity [R29.898] 02/23/2017 Vision blurred [H53.8] 02/23/2017 Lumbar spine pain [M54.5] 02/23/2017 Cervical spine pain [M54.2] 02/23/2017 Abnormal MRI, lumbar spine [R93.7] 02/23/2017 Hydroureter, left [N13.4] 03/30/2017 Lung nodules [R91.8] 01/22/2020 More... Intractable nausea and vomiting [R11.2] 05/25/2020 Chronic pain syndrome [G89.4] 06/06/2020 Liver cyst [K76.89] 06/08/2020 Post-op pain [G89.18] 06/19/2020 Prescriptions ordered this encounter Disp Refills Start End PREGABALIN 300 MG CAPSULE 28 c* 0 06/25/2020 07/09/2020 Route: ORAL Sig: Take 1 capsule by mouth twice daily for 14 days. Encounter Status:Closed by MALA ALMENDAREZ MD on 06/25/20 progress on 2020-06 PROGRESS HNO ID: [id number] Normal 06-21-2020 Milka Dumont Author: Maria Luisa K [facility] Service: Pain Management ([id number]) Author Type: Physician Type: Progress Notes Filed: 06/21/2020 9:48 AM Note Text: Name: SALLY MCGREGOR Age: [age] year old PAIN MANAGEMENT: Abdominal pain s/p lap resection of hepatic cyst 06/11 Chronic back pain; lumbar DDD with sciatica, cervical DDD Pain Description: Patient complains of pain in her right upp er abdomen. Overall feels much better Interval HPI: Tolerating diet. Pain subsiding. A/P CT unrema rkable for acute findings 24H Comfort Meds: Neurontin 300mg po q8h x 1 Dilaudid 1mg IV q4h prn x 2 Oxycodone 10 mg x 6 06/08: MRI Panc/James: multiple simple hepatic cysts, MRCP: nor mal 06/11: Laparoscopic partial R hepatic lobectomy Subjective HPI: 39-year-old female with history of chronic back pain in cluding lumbar and cervical degenerative disc disease, migraine headache, p rior tobacco abuse, anxiety with depression, night terrors, hx multiple m ultiple hepatic cysts (MRCP normal) underwent 06/11 lap partial R hep atic lobectomy. Patient was discharged home 06/13 with 2 opiate Rx s oxycodone 5 mg #15 and Dilaudid 2 mg #40 (was instructed by Surgery to d ispose of the Oxycodone Rx). She had increased abdominal pain despite this regimen and was seen in the ED 06/18 and given Percocet #12. Patient stat es she has none of the Percocet or oxycodone left and has about half of the Dilaudid 2 mg tabs. She complained of increased abdominal pain with a ny movement. Patient was readmitted 06/19 with worsening abdominal pain. L abs unremarkable including CMP; WBC mildly elevated 11.8 patient had liquid BM yesterday and again this morning. Patient lives with her boyfriend. She quit tobacco about 5 m onths ago. She had a past history of pancreatitis but states it was not alcohol related; she stopped alcohol in January. She denies marijuana or other illicit meds use. OARRS Review: 26 prescriptions from 15 prescribers; mostly for small quant ity opiates. Most recent: 06/18 Percocet 5/325 #12 06/12 Dilaudid 2 mg #40 06/12 oxycodone 5 mg #15 06/05 Valium 5 mg #2 Current Facility-Administered Medications Medication Dose Route Frequency Provider Last Rate Last Dose - oxyCODONE IR 5 mg tab(s) (ROXICODONE) 5 mg ORAL q 4 H PRN Maria Luisa Joyner [place] 5 mg at 06/21/20 0936 - iv contrast (radiology procedure) INTRAVENOUS DIRECTED PRN Kaushal (Res) DO Grupo - gabapentin 300 mg cap(s) (NEURONTIN) 300 mg ORAL q 12 H Mo casey Joyner [place] 300 mg at 06/21/20 0811 - sucralfate 1 g tab(s) (CARAFATE) 1 g ORAL QID Nancy (Re s) Mis 1 g at 06/21/20 08 - QUEtiapine 100 mg tab(s) (SEROquel) 100 mg ORAL DAILY Hardy schaeffer (Kiran) Mis 100 mg at 06/20/20 2020 - sertraline 100 mg tab(s) (ZOLOFT) 100 mg ORAL DAILY Robel Rubin) Mis 100 mg at 06/21/20 0811 - pantoprazole DR 40 mg tab(s) (PROTONIX) 40 mg ORAL BEFORE BREAKFAST DAILY Nancy (Dena Abebe 40 mg at 06/21/20 0642 - enoxaparin 40 mg injection (LOVENOX) 40 mg SUBCUTANEOUS DA FEDERICO Nancy (Dena Abebe - sodium chloride 0.9 % (flush) 3-5 mL (BD POSIFLUSH) 3-5 mL INTRAVENOUS q 12 H Nancy (Dena Abebe 3 mL at 06/21/20 0811 - ondansetron 4 mg tab(s) (ZOFRAN) 4 mg ORAL q 6 H PRN Nova cardoso (Dena Abebe Or - ondansetron (PF) 4 mg injection (ZOFRAN) 4 mg INTRAVENOUS q 6 H PRN Nancy (Kiran) Mis - docusate sodium 100 mg cap(s) (COLACE) 100 mg ORAL BID PRN Nancy (Dena Abebe - melatonin 3 mg tab(s) 3 mg ORAL DAILY (8 PM) Nancy Abebe (Res ) 3 mg at 06/20/20 2019 - dextrose 5% in LR infusion (D5-LR) 100 mL/hr INTRAVENOUS C ONTINUOUS Nancy Abebe Stopped at 06/20/20 1900 - [] clindamycin (CLEOCIN) 300 mg capsule, Take 1 cap inge by mouth four times daily for 5 days., Disp: 20 capsule, Rfl: 0 - [] HYDROmorphone (HYDROMORPHONE) 2 mg tablet, Take 1 tablet by mouth every 3 hours as needed for Pain for up to 7 days., Di sp: 40 tablet, Rfl: 0 - prazosin (MINIPRESS) 1 mg cap, Take 1 mg by mouth daily at bedtime., Disp: , Rfl: - hyoscyamine (LEVSIN) 0.125 mg tablet, Take 1 tablet by nick th every 6 hours as needed., Disp: 60 tablet, Rfl: 1 - sucralfate (CARAFATE) 1 gram tablet, Take 1 tablet by mout h four times daily., Disp: 30 tablet, Rfl: 0 - promethazine (PHENERGAN) 25 mg tablet, Take 1 tablet by mo uth every 8 hours as needed (for nausea). (Patient taking differently: T maninder 25 mg by mouth every 6 hours as needed (for nausea). ), Disp: 10 tablet, Rfl: 0 - pantoprazole DR (PROTONIX) 40 mg tablet, Take 1 tablet by mouth daily before breakfast. Take on empty stomach, 1/2 hr before meal. , Disp: 30 tablet, Rfl: 3 - diphenhydrAMINE (BENADRYL) 25 mg capsule, Take 50 mg by mo uth every 6 hours as needed., Disp: , Rfl: - sertraline (ZOLOFT) 100 mg tablet, Take 1 tablet by mouth once daily., Disp: , Rfl: - QUEtiapine (SEROQUEL) 100 mg tablet, Take 1 tablet by mout h once daily., Disp: , Rfl: Social History Tobacco Use - Smoking status: Former Smoker Packs/day: 0.50 Years: 3.00 Pack years: 1.50 Types: Cigarettes Quit date: 01/12/2017 Years since quittin.4 - Smokeless tobacco: Never Used - Tobacco comment: Approx. 3 cigarettes daily-1 pack every w [place] Substance Use Topics - Alcohol use: Yes Comment: Occasional - Drug use: Never FAMILY HISTORY Problem Relation Age of Onset - Diabetes Maternal Grandmother - Diabetes Maternal Grandfather - Lipids Maternal Grandfather - Stroke Maternal Grandfather - Coronary Artery Disease Maternal Grandfather - Cataract Maternal Grandfather - Pancreatic Cancer Maternal Grandfather - Diabetes Paternal Grandmother - Diabetes Paternal Grandfather - Coronary Artery Disease Paternal Grandfather - Thyroid Mother unsure of details - Arthritis Mother fibromyalgia - Blood Disease Mother blood clots, unsure of details (aorta?) - Breast Cancer Maternal Aunt - Lipids Maternal Uncle - Coronary Artery Disease Maternal Uncle - other (ovarian ca) Other maternal cousin - Colon Cancer No Family History PAST SURGICAL HISTORY Procedure Laterality Date - CHOLECYSTECTOMY HX - COLONOSCOPY 05/08/2020 poor prep, stool in entire colon, int hemorrhoids, diverticu losis - DANDC, DIAG AND/OR THERAPEUTIC - 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, mild esophagitis, 2 cm hiatal hernia - LIGATE FALLOPIAN TUBE - PAST SURGICAL HISTORY OF uterine ablation - PAST SURGICAL HISTORY OF cyst removal - REMOVAL OF OVARY(S) 2009 Oophorectomy right, still has left - REMOVAL OF OVARY(S) 01/2015 left removed - TOTAL ABDOM HYSTERECTOMY 08/31/06 Hysterectomy, MICHELINE ROS: All of the following reviewed and negative except as no arnie below: see HPI GENERAL: no fever, chills, sweats, weight loss, fatigue, gen eralized weakness HEENT: no headache, vision changes, eye discomfort, hearing change, ear discomfort, sinus pain, nasal discharge or congestion, oral lesions, soreness, dental problem NECK: no adenopathy, discomfort, change in ROM CHEST: no shortness of breath, dyspnea on exertion, wheezing , cough, sputum production or chest pain HEART: no chest pain, palpitations, syncope ABDOMEN: no nausea, vomiting, constipation, diarrhea, abdomi nal pain : no dysuria, urgency, frequency, history of stones, incon tinence NEURO: no confusion or alteration in consciousness, slurred speech, seizure, focal weakness EXTREMITIES: no new pain, edema, change in ROM HEME: no new adenopathy, bruises, petechiae PSYCH: no depression, anxiety, agitation PAIN PSYCHIATRIC EXAM: GENERAL: alert, oriented to person, place, time JUDGMENT AND INSIGHT: intact APPEARANCE: neatly groomed DEMEANOR: coooperative, not hostile, mistrustful, preoccupie d, or demanding ACTIVITY: normal, not hyperactive or hypoactive, no tremors, tics EYE CONTACT: normal SPEECH: normal, rate, volume, articulation, coherence, spont aneity MOOD: normal, without overt sadness, grief, anxiety, appropr iate to situation IDEATION: deferred MEMORY: intact PHYSICAL EXAMINATION: GENERAL: well nourished and developed; no acute distress; al ert and oriented x 3; intact judgement and insight HEENT: no evidence of trauma; cranial nerves intact; eyes cl ear EOMI; no hearing deficits apparent; nasal passages unremarkable; thro at and mucous membranes clear NECK: supple without lymphadenopathy; no JVD; no thyromegaly CHEST: clear bilaterally to auscultation; normal chest movem ent; no rales or rhonchi HEART: regular rate and rhythm, normal S1 and S2, no murmurs , clicks, rubs, or gallops ABDOMEN: soft; nondistended; bowel sounds present; no hepato megaly; no splenomegaly; mild RUQ tenderness EXTREMITIES: no evidence of clubbing; no cyanosis; no deform ity; no joint effusion; no edema NEURO: cranial nerves intact; no focal deficits; no confusio n; no tremor; sensorium normal SKIN: no rash; no skin breakdown; no decubitus lesions HEME: no bruising; no adenopathy PSYCH: no evidence of depression; no anxiety; no agitation; no apparent hallucinations BP 100/67 Pulse 75 Temp 36.3 ?C (97.3 ?F) (Oral) Resp 16 Ht 154.9 cm (5' 1) Wt 87.7 kg (193 lb 5.5 oz) LMP 08/10/20 06 SpO2 98% BMI 36.53 kg/m? BMI 36.53 kg/(m2) ABNORMAL/NEW FINDINGS: NONE RADIOLOGY/DIAGNOSTICS: LABORATORY: CBC: No results for input(s): WBC, RBC, HB, HCT, PLT, MCV, MCH, M PV, RDW in the last 24 hours. CMP: No results for input(s): NA, K, CHLOR, CO2, BUN, CREAT, GLUC , TPROT, CA, MG, ALBUMIN, TBILI, ALKPHOS, ALT, AST, ANION in the last 24 hours. Heme: No results for input(s): RETICP, ABSRETIC, LD, BORIS, FE , TIBC, TRANSFERSAT in the last 24 hours. ASSESSMENT ACTIVE PROBLEM LIST Routine gynecological examination Family history of diabetes mellitus Calculus of Kidney Allergic rhinitis, cause unspecified Migraine Without Aura Smoker Impaired Fasting Glucose Benign Liver Cyst Ovarian Cyst Generalized Anxiety Disorder Reactive Depression Adjustment Insomnia Encounter for Screening for Cardiovascular Disorders Bilateral Low Back Pain Without Sciatica Pain in Left Hip Greater Trochanteric Bursitis Hydronephrosis of Left Kidney Hydroureter On Left Right Facial Numbness Right Upper Extremity Numbness Numbness of Right Lower Extremity Weakness of Right Upper Extremity Weakness of Right Lower Extremity Vision Blurred Lumbar Spine Pain Cervical Spine Pain Abnormal Mri, Lumbar Spine Hydroureter, Left Lung Nodules Intractable Nausea and Vomiting Chronic Pain Syndrome Liver Cyst Post-Op Pain PLAN: S/p 06/11 Laparoscopic partial R hepatic lobectomy. Patient w ith history of multiple hepatic cysts. Readmitted with intractable abdom inal pain A/P CT unremarkable for acute findings Overall, patient clinically improving Of note, patient received 2 opiate prescriptions at discharg e 06/13 including oxycodone 5 mg #15 and Dilaudid 2 mg #40. She also received 06/18 Percocet No. 12 from ED. States she has about half of t he Dilaudid 2 mg tabs left Patient with history of chronic multifactorial pain particul marquis multilevel degenerative disc disease and migraine headache. She was referred to [place] pain management but was unable to go to appointments due to transportation issues. Because of multiple missed mini ointments, and she was told that she was not able to reschedule Gabapentin 300 mg twice daily; patient states this had been prescribed for her back. Last prescription Jan, 2020 Decrease Oxycodone 5 mg every 4 hours PRN moderate to severe pain Anticipate only short course opiates for acute postop pain. Small quantity oxycodone prescription sent to [facility] [place] Maria Luisa Trejo MD plan of care on PLAN OF CARE HNO ID: [id number] Normal 06-21-20 [facility] Author: Rhonda Holman (Pharmacist) Center ([id number]) Service: Pharmacy Author Type: Pharmacist Type: Plan of Care Filed: 06/21/2020 11:55 AM Note Text: DISCHARGE MEDICATION REVIEW BY PHARMACY Patient Name: Sally Mcgregor Account #: Data Unavailable Admission Date: 06/19/2020 Date of Contact: June 21, 2020 Time of Contact: 11:55 AM Medication list was reviewed by a Pharmacist for drug intera ctions or drug related problems:Yes Below is a summary of pharmacist recommendations discussed w ith LIP: No Recommendations at this time from Discharge Medication Genna Chan, PHARMACIST June 21, 2020 11:55 AM Pager: [phone] 06/21/2020 11:55 AM Medication List START taking these medications docusate sodium 100 mg capsule Commonly known as: COLACE Take 1 capsule by mouth twice daily. naloxone 4 mg/actuation nasal spray Use 1 spray in one nostril as needed for overdose. May repea t every 2 to 3 min in alternating nostrils until medical assistance is avai lable oxyCODONE IR 5 mg immediate release tablet Commonly known as: ROXICODONE Take 1 tablet by mouth every 8 hours as needed for up to 5 d ays. polyethylene glycol 3350 17 gram/dose powder Commonly known as: MIRALAX Dissolve 1 packet in 4-8 ounces of liquid and drink by mouth once daily as directed. CHANGE how you take these medications promethazine 25 mg tablet Commonly known as: PHENERGAN Take 1 tablet by mouth every 8 hours as needed (for nausea). What changed: when to take this CONTINUE taking these medications clindamycin 300 mg capsule Commonly known as: CLEOCIN Take 1 capsule by mouth four times daily for 5 days. diphenhydrAMINE 25 mg capsule Commonly known as: BENADRYL hyoscyamine 0.125 mg tablet Commonly known as: LEVSIN Take 1 tablet by mouth every 6 hours as needed. pantoprazole DR 40 mg tablet Commonly known as: PROTONIX Take 1 tablet by mouth daily before breakfast. Take on empty stomach, 1/2 hr before meal. prazosin 1 mg Cap Commonly known as: MINIPRESS QUEtiapine 100 mg tablet Commonly known as: SEROquel sertraline 100 mg tablet Commonly known as: ZOLOFT sucralfate 1 gram tablet Commonly known as: CARAFATE Take 1 tablet by mouth four times daily. STOP taking these medications HYDROmorphone 2 mg tablet Commonly known as: HYDROmorphone Where to Get Your Medications These medications were sent to [facility] [address] [place], [place] [id number] Hours: Thursday-Thursday, 8am-6:30pm ? clindamycin 300 mg capsule ? docusate sodium 100 mg capsule ? naloxone 4 mg/actuation nasal spray ? oxyCODONE IR 5 mg immediate release tablet ? polyethylene glycol 3350 17 gram/dose powder nursing prog on NURSING HNO ID: [id number] Normal 06-21-2020 [facility] Author: Silvia Naranjo) VIN Gomez General Service: ? Medical Author Type: Registered Nurse Center Type: Nursing Progress Note ([id number]) Filed: 06/20/2020 11:32 PM Note Text: Nursing Progress Note Patient Name: Sally Mcgregor Patient Location: [id number] Pt has been eating better and was told by the doctor that wh en her intake improved the fluids could be discontinued. Pt does not want fluids to continue so RN stopped fluids on pt's request. Doctor note i ndicated what the pt said. This note was completed by: Silvia Gomez RN progress on 2020-06 PROGRESS HNO ID: [id number] Normal 06-20-2020 [facility] Author: Jonh Urrutia DO General Service: General Surgery Medical Author Type: Resident Center Type: Progress Notes ([id number]) Filed: 06/20/2020 8:38 AM Note Text: Attestation signed by Mala Almendarez at 06/20/2020 2:18 PM I saw and evaluated the patient. Discussed with the reside nt and agree with resident's findings and plan as documented in the resident's note. [facility]ive General Surgery Progress Note SERVICE DATE: 06/20/2020 [facility] General Surgery Service Pager: For questions or concerns Mon-Fri 6a-5p please page [phone]. After 5pm and on Weekends and Holidays, please page [phone]. SUBJECTIVE: Doing better this morning. Says pain is is 7/10 and better c ontrolled as she inched herself up in bed. This is a tolerable pain level for her. Denies any vomiting but some nausea. Says she did not really eat much yesterday but ordered a good breakfast. Has been ambulating in the hallway. Tolerating diet DIET REGULAR OBJECTIVE: Vitals: Temp (24hrs), Av.4 ?C (97.5 ?F), Min:36.2 ?C (97.2 ?F), Max:36.6 ?C (97.9 ?F) BP 108/70 Pulse 78 Temp 36.2 ?C (97.2 ?F) (Oral) Resp 16 Ht 154.9 cm (5' 1) Wt 86 kg (189 lb 9.5 oz) LMP 08/10/2006 SpO2 95% BMI 35.82 kg/m? O2 Therapy: Room Air IANDO: MEDICATIONS Current Facility-Administered Medications Medication Dose Route Frequency - iv contrast (radiology procedure) INTRAVENOUS DIRECTED PRN And - enteric contrast (radiology procedure) ORAL DIRECTED MT N - oxyCODONE IR 5-10 mg tab(s) (ROXICODONE) 5-10 mg ORAL q 4 H PRN - sucralfate 1 g tab(s) (CARAFATE) 1 g ORAL QID - QUEtiapine 100 mg tab(s) (SEROquel) 100 mg ORAL DAILY - sertraline 100 mg tab(s) (ZOLOFT) 100 mg ORAL DAILY - pantoprazole DR 40 mg tab(s) (PROTONIX) 40 mg ORAL BEFORE BREAKFAST DAILY - enoxaparin 40 mg injection (LOVENOX) 40 mg SUBCUTANEOUS DA FEDERICO - sodium chloride 0.9 % (flush) 3-5 mL (BD POSIFLUSH) 3-5 mL INTRAVENOUS q 12 H - ondansetron 4 mg tab(s) (ZOFRAN) 4 mg ORAL q 6 H PRN Or - ondansetron (PF) 4 mg injection (ZOFRAN) 4 mg INTRAVENOUS q 6 H PRN - docusate sodium 100 mg cap(s) (COLACE) 100 mg ORAL BID PRN - HYDROmorphone HCl 1 mg injection (DILAUDID) 1 mg INTRAVENO US q 4 H PRN - melatonin 3 mg tab(s) 3 mg ORAL DAILY (8 PM) - dextrose 5% in LR infusion (D5-LR) 100 mL/hr INTRAVENOUS C ONTINUOUS - gabapentin 300 mg cap(s) (NEURONTIN) 300 mg ORAL q 8 H - hydrocortisone sodium succinate (PF) 200 mg injection (Leslie u-CORTEF) 200 mg INTRAVENOUS q 6 H Labs: Recent Labs 06/19/20 2105 NA 137 K 3.8 CHLOR 102 CO2 22 BUN 14 CREAT 0.88 GLUC 100* ANION 13 CA 9.1 AST 19 ALT 16 ALKPHOS 110 TBILI 0.2 WBC 11.80* HB 12.1 HCT 37.8 PLT 324 Exam: GENERAL: No distress, Alert NEURO: AANDOx3, CN II-XII grossly intact HEENT: normocephalic, atraumatic LUNGS: Unlabored breathing CARDIAC: Regular rate and rhythm as above ABDOMEN: Soft, non-distended, moderate TTP on the right abdo men. Incisions healing well EXTREMITIES: [place], No deformities, No edema SKIN: Skin color, texture, turgor normal, No rashes or lesio ns ASSESSMENT AND PLAN: Active Hospital Problems Diagnosis Date Noted - Post-op pain 06/19/2020 Assessment: 39 year old female s/p resection of liver cyst on 06/11 retur ns with uncontrolled pain Hospital Course: Plan: - Regular diet as tolerated - mIVF, will d/c once she is more regularly tolerating a t - Pain and nausea control -Pain management consulted. Appreciate assistance - Encourage OOB and ambulation - CT abd/pel pending -Contrast allergy and receiving steroid prep currently -Follow up on imaging - Continue home seroquel for history of hallucinations Follow up needs: TBD Will discuss with Dr. Almendarez SIGNATURE: Jonh Urrutia DO PATIENT NAME: Sally james DATE: June 20, 2020 TIME: 8:34 AM Pager: see below [facility] General Surgery Service Pager: For questions or concerns Mon-Fri 6a-5p please page [phone]. After 5pm and on Weekends and Holidays, please page [phone] if in ICU or [phone] if on RNF. plan of care on PLAN OF CARE HNO ID: [id number] Normal 06-20-20 20 [facility] Author: Nancy Abebe [place] ([id number]) Service: General Surgery Author Type: Resident Type: Plan of Care Filed: 06/20/2020 2:51 AM Note Text: Called to bedside by nursing d/t the pt reporting visual rajendra lucinations and seeing figures come out of the aguirre and a man standing behind the nurse (there was no one else in the room at the time). Instr ucted the nurse to get a new set of VS while I headed to the pt's room . BP 107/54 Pulse 73 Temp 36.4 ?C (97.5 ?F) (Oral) Resp 16 Ht 154.9 cm (5' 1) Wt 86 kg (189 lb 9.5 oz) LMP 08/10/2006 SpO2 97% BMI 35.82 kg/m? Pt states that she has a h/o visual hallucinations and these have subsided since being started on Seroquel in November. Pt reports that sh shiva does not remember having hallucinations this evening; however, the man llucinations that were described by nursing report are similar to the rajendra lucinations the pt reports having had in the past. Appears sleepy. CTAB, RRR. Abd exam less tender than initial exam this evening. Will continue to monitor. Nancy Abebe, General Surgery Resident, PGY-1 June 20, 2020 2:44 AM history physical on 2020-06-20 HISTORY HNO ID: [id number] Normal 06-20-2020 [facility] Author: Nancy Abebe [facility] Service: General Surgery Medical Author Type: Resident Center Type: HAND ([id number]) Filed: 06/19/2020 11:38 PM Note Text: Attestation signed by Mala Almendarez at 06/20/2020 2:18 PM Attending Note I personally saw and examined the patient. I reviewed the resident's note. I agree with the resident's assessment and plan with the [facility] revisions and/or additions: CT scan reviewed. Will admit for pain control and bowel laura men Signature: Mala Almendarez MD Date: 06/20/2020 Time: 2:18 PM HISTORY AND PHYSICAL EXAMINATION SERVICE DATE: 06/19/2020 SERVICE TIME: 11:22 PM Subjective CHIEF COMPLAINT: intractible post-op pain HPI: 39 year old female POD #8 from hepatic cystectomy with Dr. Almendarez presents with c/o abd pain. Pt was sent home on POD#2 on PO Dilauded. She states that on POD#5 she began having worsening pain and her Dilauded was not relieving her pain. POD#6 she went to the ED and states they performed a CT and gave her Percocet. She continued to have pain and c alled Dr. Almendarez's office, as the pain continued to get worse. She was se nt to [place] ED, where she was given IV Dilauded and transferred here to [facility] [place]. Pt reports that she is urinating, passing flatus and BMs. No N/ V. No fevers or chills. Last PO was at 1300h. Pt has a h/o multiple abd surgeries. Reformed smoker x5 anai hs. FUNCTIONAL STATUS: Independent PAST MEDICAL HISTORY Diagnosis Date - Allergic rhinitis, cause unspecified 05/17/2008 Spring and summer - Benign liver cyst 05/24/2010 CT scan at [facility] 11/2009 and 04/2010 showe 4 mm increase in size . No pain. No elevated LFTs on 03/11/2010. - Calculus of kidney 05/17/[address] Nicolas: Hospitalized age 20, and again later -- no procedures so far [facility]) - Cancer (HCC) - Diverticulosis - Dysmenorrhea - Hemorrhoids - History of blood transfusion - Impaired fasting glucose 05/17/2008 Sugar 104 fasting, 04/21 - MIGRAINE 05/17/2008 Has used imitrex with good response; Keeps Vicodin on hand w hen needed; - Ovarian cyst 07/15/2012 - Pancreatitis - Smoker 05/17/2008 Started age 26, 1/2 a PPD PAST SURGICAL HISTORY Procedure Laterality Date - CHOLECYSTECTOMY HX - COLONOSCOPY 05/08/2020 poor prep, stool in entire colon, int hemorrhoids, diverticu losis - DANDC, DIAG AND/OR THERAPEUTIC - 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, mild esophagitis, 2 cm hiatal hernia - LIGATE FALLOPIAN TUBE - PAST SURGICAL HISTORY OF uterine ablation - PAST SURGICAL HISTORY OF cyst removal - REMOVAL OF OVARY(S) 2009 Oophorectomy right, still has left - REMOVAL OF OVARY(S) 01/2015 left removed - TOTAL ABDOM HYSTERECTOMY 08/31/06 Hysterectomy, [facility] FAMILY HISTORY Problem Relation Age of Onset - Diabetes Maternal Grandmother - Diabetes Maternal Grandfather - Lipids Maternal Grandfather - Stroke Maternal Grandfather - Coronary Artery Disease Maternal Grandfather - Cataract Maternal Grandfather - Pancreatic Cancer Maternal Grandfather - Diabetes Paternal Grandmother - Diabetes Paternal Grandfather - Coronary Artery Disease Paternal Grandfather - Thyroid Mother unsure of details - Arthritis Mother fibromyalgia - Blood Disease Mother blood clots, unsure of details (aorta?) - Breast Cancer Maternal Aunt - Lipids Maternal Uncle - Coronary Artery Disease Maternal Uncle - other (ovarian ca) Other maternal cousin - Colon Cancer No Family History Social History Tobacco Use - Smoking status: Former Smoker Packs/day: 0.50 Years: 3.00 Pack years: 1.50 Types: Cigarettes Quit date: 01/12/2017 Years since quittin.4 - Smokeless tobacco: Never Used - Tobacco comment: Approx. 3 cigarettes daily-1 pack every w [place] Substance Use Topics - Alcohol use: Yes Comment: Occasional - Drug use: Never - clindamycin (CLEOCIN) 300 mg capsule, Take 1 capsule by mo ut four times daily for 5 days., Disp: 20 capsule, Rfl: 0 - HYDROmorphone (HYDROMORPHONE) 2 mg tablet, Take 1 tablet b y mouth every 3 hours as needed for Pain for up to 7 days., Disp: 40 table t, Rfl: 0 - prazosin (MINIPRESS) 1 mg cap, Take 1 mg by mouth daily at bedtime., Disp: , Rfl: - hyoscyamine (LEVSIN) 0.125 mg tablet, Take 1 tablet by nick th every 6 hours as needed., Disp: 60 tablet, Rfl: 1 - sucralfate (CARAFATE) 1 gram tablet, Take 1 tablet by mout h four times daily., Disp: 30 tablet, Rfl: 0 - promethazine (PHENERGAN) 25 mg tablet, Take 1 tablet by mo uth every 8 hours as needed (for nausea). (Patient taking differently: T maninder 25 mg by mouth every 6 hours as needed (for nausea). ), Disp: 10 tablet, Rfl: 0 - pantoprazole DR (PROTONIX) 40 mg tablet, Take 1 tablet by mouth daily before breakfast. Take on empty stomach, 1/2 hr before meal. , Disp: 30 tablet, Rfl: 3 - diphenhydrAMINE (BENADRYL) 25 mg capsule, Take 50 mg by mo uth every 6 hours as needed., Disp: , Rfl: - sertraline (ZOLOFT) 100 mg tablet, Take 1 tablet by mouth once daily., Disp: , Rfl: - QUEtiapine (SEROQUEL) 100 mg tablet, Take 1 tablet by mout h once daily., Disp: , Rfl: ALLERGIES Allergen Reactions - Penicillins Rash - Cephalexin Itching - Chlorhexidine Rash Skin rash - Toradol [Ketorolac] Rash - Tramadol Rash - Asa [Salicylates] Other: See Comments ulcers - Contrast Dye [Iodin* Shortness of Breath - Ibuprofen GI Upset - Prednisone Other: See Comments makes agitated and mean COMPLETE REVIEW OF SYSTEMS: PAIN ASSESSMENT: CURRENTLY HAVING PAIN; see HPI GENERAL: Negative for significant weight loss, fever, Positi ve for malaise HEENT: Negative for frequent or significant headaches, No ch anges in hearing or vision, no nose bleeds or other nasal problems NECK: Negative for lumps, goiter, pain and significant neck swelling RESPIRATORY: Negative for cough, hemoptysis, wheezing, COPD, dyspnea or shortness of breath CARDIOVASCULAR: Negative for chest pain, leg swelling, hyper tension, CHF or palpitations GI: No nausea, vomiting, or diarrhea and See HPI : No history of dysuria, frequency or incontinence MUSCULOSKELETAL: Negative for joint pain or swelling, back p ain or muscle pain SKIN: Negative for lesions, rash, and itching NEURO: No history of headaches, syncope, paralysis, seizures or tremors Objective PHYSICAL EXAM: Physical Exam Performed: GENERAL: Alert, Moderate Distress, Cooperative SKIN: Skin color, texture, turgor normal. No rashes or lesio ns. HEAD/SINUSES: No significant findings EYES: EOMI, Negatives no scleral icterus NECK: Supple LUNGS: Negative findings: normal respiratory rate and rhythm , chest symmetric with normal A/P diameter, no chest deformities not ed and diaphragmatic excursion normal CARDIAC: 2+ radial and DP pulses ABDOMEN: Positive findings: tenderness: marked, voluntary gu arding and , location: RUQ and R flank EXTREMITIES: Extremities normal, no deformities, edema, club konstantin or skin discoloration. Good capillary refill., No ulcers NEURO: Negative findings: speech normal, mental status intac t BP 133/73 Pulse 68 Temp (Src) 97.9 (Oral) Resp 18 Ht 5' 1 (1.55m) Wt 189 lb 9.5 oz (86.0kg) SpO2 100% LMP 08/10/2006 B NV 35.84 kg/(m2). O2 Therapy: Room Air DATA: Labs: Recent Labs 06/19/20 2105 NA 137 K 3.8 CHLOR 102 CO2 22 BUN 14 CREAT 0.88 GLUC 100* ANION 13 CA 9.1 AST 19 ALT 16 ALKPHOS 110 TBILI 0.2 WBC 11.80* HB 12.1 HCT 37.8 PLT 324 Diagnostic tests reviewed for today's visit: Most recent labs and imaging results. Assessment/Plan Assessment and Plan: 39 year old female POD #8 s/p resection of liver cyst. Pt's pain is not controlled at home with PO Dilauded - Diet as tolerated - IVF - Pain/nausea control - CT abd with IV contrast - Pre-medicate with 13 hour medrol prep d/t contrast allergy - DVT ppx: SCDs, LVX - Will consult Pain Management - Discussed with attending, Dr. Almendarez SIGNATURE: Nancy Abebe DO PATIENT NAME: Sally james DATE: June 19, 2020 TIME: 11:22 PM Pager: Elective General Surgery Service Pager: For questions or concerns Mon-Thu 6a-5p please page [phone]. After 5pm and on Weekends and Holidays, please page [phone] if in ICU or [id number] abd/pel w ivcon on 2020-06-20 CT ABD/PEL W Final Report Normal 06-20-2020 [facility] IVCON DATE OF EXAM: Jun 20 2020 11:59AM [facility] 0530 - CT ABD/PEL W IVCON / ([id number]) PROCEDURE REASON: Abd pain, unspecified Physician Interpretation EXAMINATION: CT ABDOMEN AND PELVIS WITH IV CONTRAST CLINICAL HISTORY: Abdominal pain, POD9 status post resection of 8 liver cyst TECHNIQUE: CT of the abdomen and pelvis was performed using standard technique, scanning from just above the dome of the diaphrag m to the symphysis pubis. MQ: CTAP_3 Contrast: IV: 150 ml of Visipaque 320 CT Radiation dose: Integrated Dose-length product (DLP) for this visit = [address] Dose Reduction Employed: Automated exposure control(AEC) and iterative recon COMPARISON: MRI of the abdomen 06/08/2020 and prior RESULT: Liver: Postsurgical changes in the right hepatic dome furthe r resection of a cyst with a residual 8.3 x 4.4 cm cystic cavity and tra ce gas. No enhancement to suggest abscess formation. Other hepatic cyst s bilaterally measure up to 3.1 cm in the left hepatic lobe. N o suspicious hepatic lesion. Biliary: No bile duct dilation. Cholecystectomy. Spleen: No mass. No splenomegaly. A 0.8 cm accessory spleen is present. Pancreas: No mass or d uct dilation. Adrenals: No mass. Kidneys: Symmetric nephrograms, no hydronephrosis. A 0.2 cm nonobstructing calculus is present in the inferior right michael al pole and punctate calcification in the left interpolar region. GI tract: No dilation or wall thickening. Lymph nodes: No abdominal or pelvic lymphadenopathy. Mesentery/Peritoneum: No ascites or mass. Retroperitoneum: No mass. Vasculature: The celiac axis and SMA are patent. The portal vein and branches, splenic vein, SMV, and hepatic veins are patent. Pelvis: No mass, ascites or fluid collection. Hysterectomy. Bones/Soft Tissues: Ventral laparotomy scar without evidence of acute complication. No acute osseous abnormalities. Thoracolumbar spondylosis. Lower thorax: No consolidation or pleural effusion. Visualiz ed portions of the heart are unremarkable. Pelt Shearer (topogram) images: No additional findings. IMPRESSION: 1. Postsurgical changes in the posterior right hepatic dome with residual 8.3 cm cystic cavity with trace likely postsurgical gas, but no peripheral enhancement to suggest acute inflammation. 2. Other hepatic cyst are unchanged. 3. No acute intra-abdominal or pelvic findings. Parts Department Manager: HERMINIO Transcribe Date/Time: Jun 20 2020 12:16P Dictated by : NILAM OVIEDO MD This examination was interpreted and the report reviewed and electronically signed by: NILAM OVIEDO MD on Jun 20 2020 12:28PM EST consult on CONSULT HNO ID: [id number] Normal 06-20-2020 [facility] Author: [facility] Service: Pain Management ([id number]) Author Type: Physician Type: Consults Filed: 06/20/2020 9:30 AM Note Text: Name: SALLY MCGREGOR Age: [age] year old PAIN MANAGEMENT: Abdominal pain s/p lap resection of hepatic cyst 06/11 Chronic back pain; lumbar DDD with sciatica, cervical DDD Pain Description: Patient complains of pain in her right upp er abdomen. Pain score down to 7 with medication. Some relief with heati ng pad Interval HPI: 24H Comfort Meds: Neurontin 300mg po q8h x 1 Dilaudid 1mg IV q4h prn x 2 Toradol 30mg IV q6h x 0 06/08: MRI Panc/James: multiple simple hepatic cysts, MRCP: nor mal 06/11: Laparoscopic partial R hepatic lobectomy Subjective HPI: 39-year-old female with history of chronic back pain in cluding lumbar and cervical degenerative disc disease, migraine headache, p rior tobacco abuse, anxiety with depression, night terrors, hx multiple m ultiple hepatic cysts (MRCP normal) underwent 06/11 lap partial R hep atic lobectomy. Patient was discharged home 06/13 with 2 opiate Rx s oxycodone 5 mg #15 and Dilaudid 2 mg #40 (was instructed by Surgery to d ispose of the Oxycodone Rx). She had increased abdominal pain despite this regimen and was seen in the ED 06/18 and given Percocet #12. Patient stat es she has none of the Percocet or oxycodone left and has about half of the Dilaudid 2 mg tabs. She complained of increased abdominal pain with a ny movement. Patient was readmitted 06/19 with worsening abdominal pain. L abs unremarkable including CMP; WBC mildly elevated 11.8 patient had liquid BM yesterday and again this morning. Patient lives with her boyfriend. She quit tobacco about 5 m onths ago. She had a past history of pancreatitis but states it was not alcohol related; she stopped alcohol in January. She denies marijuana or other illicit meds use. OARRS Review: 26 prescriptions from 15 prescribers; mostly for small quant ity opiates. Most recent: 06/18 Percocet 5/325 #12 06/12 Dilaudid 2 mg #40 06/12 oxycodone 5 mg #15 06/05 Valium 5 mg #2 Current Facility-Administered Medications Medication Dose Route Frequency Provider Last Rate Last Dose - iv contrast (radiology procedure) INTRAVENOUS DIRECTED PRN Kaushal (Res) DO Grupo And - enteric contrast (radiology procedure) ORAL DIRECTED MT N Kaushal (Res) DO Grupo - oxyCODONE IR 5-10 mg tab(s) (ROXICODONE) 5-10 mg ORAL q 4 H PRN Maria Luisa Trejo - sucralfate 1 g tab(s) (CARAFATE) 1 g ORAL QID Nancy PickardRe sJooa Abebe 1 g at 06/19/202105 - QUEtiapine 100 mg tab(s) (SEROquel) 100 mg ORAL DAILY Hardy Abebe 100 mg at 06/19/200 - sertraline 100 mg tab(s) (ZOLOFT) 100 mg ORAL DAILY Robel ribeiro (Kiran) Mis - pantoprazole DR 40 mg tab(s) (PROTONIX) 40 mg ORAL BEFORE BREAKFAST DAILY Nancy Abebe 40 mg at 06/20/20 0638 - enoxaparin 40 mg injection (LOVENOX) 40 mg SUBCUTANEOUS DA FEDERICO Cruz (Kiran) Mis - sodium chloride 0.9 % (flush) 3-5 mL (BD POSIFLUSH) 3-5 mL INTRAVENOUS q 12 H Nancy Abebe 5 mL at 06/19/20 2100 - ondansetron 4 mg tab(s) (ZOFRAN) 4 mg ORAL q 6 H PRN Nova cardoso (Res) Mis Or - ondansetron (PF) 4 mg injection (ZOFRAN) 4 mg INTRAVENOUS q 6 H PRN Nancy (Kiran) Mis - docusate sodium 100 mg cap(s) (COLACE) 100 mg ORAL BID PRN Nancy (Kiran) Mis - HYDROmorphone HCl 1 mg injection (DILAUDID) 1 mg INTRAVENO US q 4 H PRN Maria Luisa K Scantling 1 mg at 06/20/20 0525 - melatonin 3 mg tab(s) 3 mg ORAL DAILY (8 PM) Nancy (Kiran ) Mis 3 mg at 06/19/206 - dextrose 5% in LR infusion (D5-LR) 100 mL/hr INTRAVENOUS C ONTINUOUS Nancy (Dena Abebe 100 mL/hr at 06/20/20 0642 100 mL/hr a t 06/20/20 0642 - gabapentin 300 mg cap(s) (NEURONTIN) 300 mg ORAL q 8 H Ki helle (Kiran) Mis 300 mg at 06/20/20 0526 - hydrocortisone sodium succinate (PF) 200 mg injection (Leslie u-CORTEF) 200 mg INTRAVENOUS q 6 H Nancy (Kiran) Mis 200 mg at 0 0526 - clindamycin (CLEOCIN) 300 mg capsule, Take 1 capsule by mo ut four times daily for 5 days., Disp: 20 capsule, Rfl: 0 - [] HYDROmorphone (HYDROMORPHONE) 2 mg tablet, Take 1 tablet by mouth every 3 hours as needed for Pain for up to 7 days., Di sp: 40 tablet, Rfl: 0 - prazosin (MINIPRESS) 1 mg cap, Take 1 mg by mouth daily at bedtime., Disp: , Rfl: - hyoscyamine (LEVSIN) 0.125 mg tablet, Take 1 tablet by nick every 6 hours as needed., Disp: 60 tablet, Rfl: 1 - sucralfate (CARAFATE) 1 gram tablet, Take 1 tablet by [facility] four times daily., Disp: 30 tablet, Rfl: 0 - promethazine (PHENERGAN) 25 mg tablet, Take 1 tablet by mo ut every 8 hours as needed (for nausea). (Patient taking differently: T maninder 25 mg by mouth every 6 hours as needed (for nausea). ), Disp: 10 tablet, Rfl: 0 - pantoprazole DR (PROTONIX) 40 mg tablet, Take 1 tablet by mouth daily before breakfast. Take on empty stomach, 1/2 hr before meal. , Disp: 30 tablet, Rfl: 3 - diphenhydrAMINE (BENADRYL) 25 mg capsule, Take 50 mg by mo uth every 6 hours as needed., Disp: , Rfl: - sertraline (ZOLOFT) 100 mg tablet, Take 1 tablet by mouth once daily., Disp: , Rfl: - QUEtiapine (SEROQUEL) 100 mg tablet, Take 1 tablet by mout h once daily., Disp: , Rfl: Social History Tobacco Use - Smoking status: Former Smoker Packs/day: 0.50 Years: 3.00 Pack years: 1.50 Types: Cigarettes Quit date: 01/12/2017 Years since quittin.4 - Smokeless tobacco: Never Used - Tobacco comment: Approx. 3 cigarettes daily-1 pack every w [place] Substance Use Topics - Alcohol use: Yes Comment: Occasional - Drug use: Never FAMILY HISTORY Problem Relation Age of Onset - Diabetes Maternal Grandmother - Diabetes Maternal Grandfather - Lipids Maternal Grandfather - Stroke Maternal Grandfather - Coronary Artery Disease Maternal Grandfather - Cataract Maternal Grandfather - Pancreatic Cancer Maternal Grandfather - Diabetes Paternal Grandmother - Diabetes Paternal Grandfather - Coronary Artery Disease Paternal Grandfather - Thyroid Mother unsure of details - Arthritis Mother fibromyalgia - Blood Disease Mother blood clots, unsure of details (aorta?) - Breast Cancer Maternal Aunt - Lipids Maternal Uncle - Coronary Artery Disease Maternal Uncle - other (ovarian ca) Other maternal cousin - Colon Cancer No Family History PAST SURGICAL HISTORY Procedure Laterality Date - CHOLECYSTECTOMY HX - COLONOSCOPY 05/08/2020 poor prep, stool in entire colon, int hemorrhoids, diverticu losis - DANDC, DIAG AND/OR THERAPEUTIC - 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, mild esophagitis, 2 cm hiatal hernia - LIGATE FALLOPIAN TUBE - PAST SURGICAL HISTORY OF uterine ablation - PAST SURGICAL HISTORY OF cyst removal - REMOVAL OF OVARY(S) 2009 Oophorectomy right, still has left - REMOVAL OF OVARY(S) 01/2015 left removed - TOTAL ABDOM HYSTERECTOMY 08/31/06 Hysterectomy, MICHELINE ROS: All of the following reviewed and negative except as no arnie below: see HPI GENERAL: no fever, chills, sweats, weight loss, fatigue, gen eralized weakness HEENT: no headache, vision changes, eye discomfort, hearing change, ear discomfort, sinus pain, nasal discharge or congestion, oral lesions, soreness, dental problem NECK: no adenopathy, discomfort, change in ROM CHEST: no shortness of breath, dyspnea on exertion, wheezing , cough, sputum production or chest pain HEART: no chest pain, palpitations, syncope ABDOMEN: no nausea, vomiting, constipation, diarrhea, abdomi nal pain : no dysuria, urgency, frequency, history of stones, incon tinence NEURO: no confusion or alteration in consciousness, slurred speech, seizure, focal weakness EXTREMITIES: no new pain, edema, change in ROM HEME: no new adenopathy, bruises, petechiae PSYCH: no depression, anxiety, agitation PAIN PSYCHIATRIC EXAM: GENERAL: alert, oriented to person, place, time JUDGMENT AND INSIGHT: intact APPEARANCE: neatly groomed DEMEANOR: coooperative, not hostile, mistrustful, preoccupie d, or demanding ACTIVITY: normal, not hyperactive or hypoactive, no tremors, tics EYE CONTACT: normal SPEECH: normal, rate, volume, articulation, coherence, spont aneity MOOD: normal, without overt sadness, grief, anxiety, appropr iate to situation IDEATION: deferred MEMORY: intact PHYSICAL EXAMINATION: GENERAL: well nourished and developed; no acute distress; al ert and oriented x 3; intact judgement and insight HEENT: no evidence of trauma; cranial nerves intact; eyes cl ear EOMI; no hearing deficits apparent; nasal passages unremarkable; thro at and mucous membranes clear NECK: supple without lymphadenopathy; no JVD; no thyromegaly CHEST: clear bilaterally to auscultation; normal chest movem ent; no rales or rhonchi HEART: regular rate and rhythm, normal S1 and S2, no murmurs , clicks, rubs, or gallops ABDOMEN: soft; nondistended; bowel sounds present; no hepato megaly; no splenomegaly; mild RUQ tenderness EXTREMITIES: no evidence of clubbing; no cyanosis; no deform ity; no joint effusion; no edema NEURO: cranial nerves intact; no focal deficits; no confusio n; no tremor; sensorium normal SKIN: no rash; no skin breakdown; no decubitus lesions HEME: no bruising; no adenopathy PSYCH: no evidence of depression; no anxiety; no agitation; no apparent hallucinations BP 108/70 Pulse 78 Temp 36.2 ?C (97.2 ?F) (Oral) Resp 16 Ht 154.9 cm (5' 1) Wt 86 kg (189 lb 9.5 oz) LMP 08/10/2006 SpO2 95% BMI 35.82 kg/m? BMI 35.82 kg/(m2) ABNORMAL/NEW FINDINGS: NONE RADIOLOGY/DIAGNOSTICS: LABORATORY: CBC: Recent Labs 06/19/202104 WBC 11.80* RBC 4.23 HB 12.1 HCT 37.8 PLT 324 MCV 89.4 MCH 28.6 MPV 10.4 CMP: Recent Labs 06/19/202104 NA 137 K 3.8 CHLOR 102 CO2 22 BUN 14 CREAT 0.88 GLUC 100* TPROT 7.7 CA 9.1 TBILI 0.2 ALKPHOS 110 ALT 16 AST 19 ANION 13 Heme: No results for input(s): RETICP, ABSRETIC, LD, BORIS, FE , TIBC, TRANSFERSAT in the last 24 hours. ASSESSMENT ACTIVE PROBLEM LIST Routine gynecological examination Family history of diabetes mellitus Calculus of Kidney Allergic rhinitis, cause unspecified Migraine Without Aura Smoker Impaired Fasting Glucose Benign Liver Cyst Ovarian Cyst Generalized Anxiety Disorder Reactive Depression Adjustment Insomnia Encounter for Screening for Cardiovascular Disorders Bilateral Low Back Pain Without Sciatica Pain in Left Hip Greater Trochanteric Bursitis Hydronephrosis of Left Kidney Hydroureter On Left Right Facial Numbness Right Upper Extremity Numbness Numbness of Right Lower Extremity Weakness of Right Upper Extremity Weakness of Right Lower Extremity Vision Blurred Lumbar Spine Pain Cervical Spine Pain Abnormal Mri, Lumbar Spine Hydroureter, Left Lung Nodules Intractable Nausea and Vomiting Chronic Pain Syndrome Liver Cyst Post-Op Pain PLAN: S/p 06/11 Laparoscopic partial R hepatic lobectomy. Patient w ith history of multiple hepatic cysts. Readmitted with intractable abdom inal pain A/P CT pending. Mild leukocytosis Of note, patient received 2 opiate prescriptions at discharg e 06/13 including oxycodone 5 mg #15 and Dilaudid 2 mg #40. She also received 10/5 Percocet No. 12 from ED. States she has about half of t he Dilaudid 2 mg tabs left Patient with history of chronic multifactorial pain particul marquis multilevel degenerative disc disease and migraine headache. She was referred to [place] [facility] but was unable to go to appointments due to transportation issues. Because of multiple missed mini ointments, and she was told that she was not able to reschedule Discontinue Toradol; patient with history of GERD on PPI Change gabapentin 300 mg twice daily; patient states this man d been prescribed for her back. Last prescription Jan, 2020 Discontinue Dilaudid IV after next dose Oxycodone 5-10 mg every 4 hours PRN moderate to severe pain Anticipate only short course opiates for acute postop pain Unclear if patient will require prescription at discharge. S he states she has 20 Dilaudid 2 mg tabs left from 06/13 prescription Thank you for this consult Maria Luisa Trejo MD allied health on 03-07-07 ALLIED [facility] HNO ID: [id number] Normal 020 [facility] Author: Holly PickardRt) [facility] Service: Radiology ( [id number]) Author Type: Radiographic Technologist Type: Allied Health Filed: 06/20/2020 12:04 PM Note Text: Radiology Service Progress Note DATE OF SERVICE: June 20, 2020 TIME: 11:59 AM PATIENT IDENTITY VERIFICATION COMPLETED USING TWO (2) STANDA RD IDENTIFIERS: Name and Date of confirmed by patient marina bally and Name and Date of confirmed by identification band. FALL SCREENING: Has the patient had 2 falls in the last year or 1 fall with injury or currently using an Ambulatory Assistive Devic e (Walker, Cane, Wheelchair, Crutches, etc.)? Inpatient: Screened on fl oor PATIENT GENDER DATA: Female. status: : No status: N/A PATIENT RELEVANT IMPLANT DATA REVIEWED: Not Applicable ALLERGIES: Reviewed and unchanged CONTRAST ALLERGY: YES HX OF ANAPHYLAXIS PER PT TO IODINATED CONTRAST. PT RECEIVED STEROID PREP PRIOR TO SCAN, NO REACTIONS TODAY. EXAM: CT -CONTRAST INDUCED NEPHROPATHY RISK FACTORS: Not applicabl e CREATININE: Creatinine Date Value Ref Range Status 06/19/2020 0.88 0.58 - 0.96 mg/dL Final 06/13/2020 0.87 0.58 - 0.96 mg/dL Final 06/12/2020 0.87 0.58 - 0.96 mg/dL Final 06/10/2020 0.90 0.58 - 0.96 mg/dL Final eGFR-All Other Races Date Value Ref Range Status 06/19/2020 >60 Final Comment: eGFR (Estimated GFR) Units of measure: mL/min/1.73 meters sq uared eGFR is derived from the reexpressed MDRD Study equation usi ng the following parameters: serum creatinine, age, gender and race . The creatinine assay has been calibrated to be traceable to IDMS . An eGFR <60 mL/min/1.73m2 for >3 months is consistent with chronic kidne y disease. Refer to KDOQI guidelines for clinical interpretation. In pa tients with unstable renal function, e.g. those with acute kidney injury , the eGFR may not accurately reflect actual GFR. 02/15/2020 >60 . Final Comment: eGFR (Estimated GFR) Units of measure: mL/min/1.73 meters sq uared eGFR is derived from the reexpressed MDRD Study equation usi ng the following parameters: serum creatinine, age, gender and race. The crea tinine assay has been calibrated to be traceable to IDMS. An eGFR <60 mL/min/1.73m2 for >3 months is consistent with c hronic kidney disease. Refer to KDOQI guidelines for clinical interpretati on. In patients with unstable renal function, e.g. those with ac mi'kmaq kidney injury, the eGFR may not accurately reflect actual GFR. eGFR- Date Value Ref Range Status 06/19/2020 >60 Final 02/15/2020 >60 Final P.O.C.T. RESULTS: N/A June 20, 2020 TREATMENT: N/A and No Hydration needed. PERIPHERAL IV DATA: Inpatient - refer to [facility] documentation RADIOLOGY DEPARTMENT: CT; Exam(s) Completed: Abdomen/Pelvis SIGNATURE: RT Jada PATIENT NAME: Slaly caldwell DATE: June 20, 2020 TIME: 11:59 AM comp metab 1999 pnl serpl on 2020-06-19 Albumin [Mass/Vol] 4.3 3.9-4.9 g/dL Normal 06-19-2020 [facility] ([id number]) Comment: Order Comment: Specimen Type : BLOOD SPECIMEN Performed By: #### [id number] # ###[facility] LABORATORYCLIA [id number] [place] [address] ALP [Catalytic activity/Vol] 110 34-123 U/L Normal 1 0-06-2020 [facility] (00 000) Comment: Order Comment: Specimen Type : BLOOD SPECIMEN Performed By: #### [id number] # ###[facility]ORATORYCLIA [id number] [facility] [place] [address] ALT With P-5'-P [Catalytic 16 7-38 U/L Normal [facility] activity/Vol] [place] ([id number]) Comment: Order Comment: Specimen Type : BLOOD SPECIMEN Performed By: #### 22285-8 # ###[facility]ORATORYCLIA [id number] [place] [address] Anion gap [Moles/Vol] 13 9-18 mmol/L Normal 06-19-20 20 [facility] ([id number]) Comment: Order Comment: Specimen Type : BLOOD SPECIMEN Performed By: #### 05744-5 # ###[facility]ORATORYCLIA [id number] [facility] [place] [address] AST With P-5'-P [Catalytic 19 13-35 U/L Normal [facility] activity/Vol] [place] ([id number]) Comment: Order Comment: Specimen Type : BLOOD SPECIMEN Performed By: #### 51932-2 # ###[facility]ATORYCLIA [id number] [facility] [place] [address] Bilirubin [Mass/Vol] 0.2 0.2-1.3 mg/dL Normal 0 [facility] (12184) Comment: Order Comment: Specimen Type : BLOOD SPECIMEN Performed By: #### 46309-9 # ###[facility]ORATORYCLIA [id number] [place] [place] [address] Calcium [Mass/Vol] 9.1 8.5-10.2 mg/dL Normal 06-19-2020 [facility] (68205) Comment: Order Comment: Specimen Type : BLOOD SPECIMEN Performed By: #### 26822-9 # ###[facility]ORATORYCLIA [id number] [place] [address] Chloride [Moles/Vol] 102 97-105 mmol/L Normal 0 [facility] (94476) Comment: Order Comment: Specimen Type : BLOOD SPECIMEN Performed By: #### 64266-6 # ###[facility] LABORATORYCLIA [id number] [place] [address] CO2 [Moles/Vol] 22 22-30 mmol/L Normal 06-19-2020 [facility] (54074) Comment: Order Comment: Specimen Type : BLOOD SPECIMEN Performed By: #### 56825-8 # ###[facility] LABORATORYCLIA [id number] [place] [address] Creatinine [Mass/Vol] 0.88 0.58-0.96 mg/dL Normal 06-19-20 20 [facility] (00 000) Comment: Order Comment: Specimen Type : BLOOD SPECIMEN Performed By: #### 71204-9 # ###[facility] LABORATORYCLIA [id number] [place] [address] GFR/1.73 sq M.predicted >60 mL/min/{1.73_m2} Normal 06-19-2020 [facility] MDRD (S/P/Bld) [[facility] rate/Area] ([id number]) Comment: Order Comment: Specimen Type : BLOOD SPECIMEN Result Comment: >60 eGFR (Estimated GFR) Units o f measure: mL/min/1.73 meters squared eGFR is derived from the ree xpressed MDRD Study equation using the following parameters: serum creatinine, age, gender and race. The creatinine assay has been calibrated to be traceable to IDME. An eGFR <60 mL/min/1.73m2 for >3 mo nths is consistent with chronic kidney disease. Refer to KDOQI guidelines for clinical interpretation. In patients with unstable renal function, e.g. those with acute k idney injury, the eGFR may n ot accurately reflect actual GFR. Performed By: #### 42674-7 # ###[facility] LABORATORYCLIA [id number] [place] [address] Glucose [Mass/Vol] 100 74-99 mg/dL High 06-19-2020 [facility] ([id number]) Comment: Order Comment: Specimen Type : BLOOD SPECIMEN Result Comment: The [place] [employer] (ADA) provides guidance for cutoff values for fasting glucose and random glucose. The ADA defines fasting as no caloric intake for at least 8 hours. Fas ting plasma glucose results between 100 to 125 mg/dL indicate increased risk for diabetes (prediabetes). Fasting plasma glucose resul ts greater than or equal to 126 mg/dL meet the criteria for diagnosis of diabetes. In the absence of unequivocal hyperglycemia, results should be confirmed by repeat testing. In a patient with classic s ymptoms of hyperglycemia or hyperglycemic crisis, random plasma glucose results greater than or equal to 200 mg/dL meet the criteria for diagnosis of diabetes. Reference: Standards of [facility] Care in Diabetes 2016, [place] [employer]. Diabetes Care. 2016.39(Suppl 1). Performed By: #### 10886-8 # ###[facility] LABORATORYCLIA [id number] [facility] [place] [address] Potassium [Moles/Vol] 3.8 3.7-5.1 mmol/L Normal 06-19-20 20 [facility] (00 000) Comment: Order Comment: Specimen Type : BLOOD SPECIMEN Performed By: #### 73641-6 # ###[facility] LABORATORYCLIA [id number] [facility] [place] [address] Protein [Mass/Vol] 7.7 6.3-8.0 g/dL Normal 06-19-2020 [facility] ([id number]) Comment: Order Comment: Specimen Type : BLOOD SPECIMEN Performed By: #### 91037-6 # ###[facility] LABORATORYCLIA [id number] [place] [place] [address] Sodium [Moles/Vol] 137 136-144 mmol/L Normal 06-19-2020 [facility] (76276) Comment: Order Comment: Specimen Type : BLOOD SPECIMEN Performed By: #### 27854-7 # ###[facility] LABORATORYCLIA [id number] [facility] [place] [address] Urea nitrogen [Mass/Vol] 14 7-21 mg/dL Normal 06-19 [facility] (70279) Comment: Order Comment: Specimen Type : BLOOD SPECIMEN Performed By: #### 27190-8 # ###[facility] LABORATORYCLIA [id number] [place] [place] [address] cbc w auto diff bld on 2020-06-19 Basophils (Bld) [#/Vol] 0.08 <0.11 k/uL Normal 2019 [facility] (00 000) Comment: Order Comment: Specimen Type : BLOOD SPECIMEN Performed By: #### 34130-4 # ###[facility]ORATORYCLIA [id number] [facility] [place] [address] Basophils/100 WBC (Bld) 0.7 % Normal 2019 [facility] (60406) Comment: Order Comment: Specimen Type : BLOOD SPECIMEN Performed By: #### 19657-4 # ###[facility]ORATORYCLIA [id number] [place] [address] Differential cell count method Auto Normal 06-19-2020 [facility] (00 000) Comment: Order Comment: Specimen Type : BLOOD SPECIMEN Performed By: #### 39113-5 # ###[facility]ORATORYCLIA [id number] [place] [place] [address] Eosinophils (Bld) [#/Vol] 0.71 <0.46 k/uL High [facility] (00 000) Comment: Order Comment: Specimen Type : BLOOD SPECIMEN Performed By: #### 62580-6 # ###[facility]ORATORYCLIA [id number] [place] [address] Eosinophils/100 WBC (Bld) 6.0 % Normal [facility] (02247) Comment: Order Comment: Specimen Type : BLOOD SPECIMEN Performed By: #### 97032-2 # ###[facility]ORATORYCLIA [id number] [place] [address] Erythrocyte distribution 13.3 11.5-15.0 % Normal 06-19 [facility] (RBC) [Ratio] Center ([address]) Comment: Order Comment: Specimen Type : BLOOD SPECIMEN Performed By: #### 19794-9 # ###[facility]ORATORYCLIA [id number] [place] [address] Hematocrit (Bld) [Volume 37.8 36.0-46.0 % Normal 06-19 [facility]] Center (00 000) Comment: Order Comment: Specimen Type : BLOOD SPECIMEN Performed By: #### 87272-8 # ###[facility] LABORATORYCLIA [id number] [facility] [place] [address] Hemoglobin (Bld) 12.1 11.5-15.5 g/dL Normal 06-19-2020 [facility] [Mass/Vol] [place] (0 0000) Comment: Order Comment: Specimen Type : BLOOD SPECIMEN Performed By: #### 37160-8 # ###[facility]ORYCLIA [id number] [place] [address] IMMATURE GRAN % 1.5 % Normal 06-19-2020 [facility] (578[address]) Comment: Order Comment: Specimen Type : BLOOD SPECIMEN Performed By: #### 33957-2 # ###[facility] LABORATORYCLIA [id number] [place] [address] IMMATURE GRAN ABS 0.18 <0.10 k/uL High 06-19-2020 [facility] ([address]456) Comment: Order Comment: Specimen Type : BLOOD SPECIMEN Result Comment: Differential confirmed by visual scan of peripheral blood smear slide Performed By: #### 10965-7 # ###[facility] LABORATORYCLIA [id number] [place] [address] Lymphocytes (Bld) [#/Vol] 4.79 1.00-4.00 k/uL High [facility] (00 000) Comment: Order Comment: Specimen Type : BLOOD SPECIMEN Performed By: #### 32890-3 # ###[facility]ORATORYCLIA [id number] [place] [address] Lymphocytes/100 WBC (Bld) 40.6 % Normal [facility] (33203) Comment: Order Comment: Specimen Type : BLOOD SPECIMEN Performed By: #### 15514-7 # ###[facility]ORATORYCLIA [id number] [place] [address] MCH (RBC) [Entitic mass] 28.6 26.0-34.0 pg Normal 06-19 [facility] () Comment: Order Comment: Specimen Type : BLOOD SPECIMEN Performed By: #### 10165-7 # ###[facility]ORATORYCLIA [id number] [facility] [place] [address] MCHC (RBC) [Mass/Vol] 32.0 30.5-36.0 g/dL Normal 06-19-20 [facility] () Comment: Order Comment: Specimen Type : BLOOD SPECIMEN Performed By: #### 44961-9 # ###[facility]ATORYCLIA [id number] [place] [address] MCV (RBC) [Entitic vol] 89.4 80.0-100.0 fL Normal 06-19 [facility] () Comment: Order Comment: Specimen Type : BLOOD SPECIMEN Performed By: #### 16581-4 # ###[facility]ATORYCLIA [id number] [facility] [place] [address] Monocytes (Bld) [#/Vol] 0.53 <0.87 k/uL Normal 2019 [facility] () Comment: Order Comment: Specimen Type : BLOOD SPECIMEN Performed By: #### 13404-3 # ###[facility]ATORYCLIA [id number] [facility] [place] [address] Monocytes/100 WBC (Bld) 4.5 % Normal 2019 [facility] (18396) Comment: Order Comment: Specimen Type : BLOOD SPECIMEN Performed By: #### 74865-1 # ###[facility]ORYCLIA [id number] [facility] [place] [address] Neutrophils (Bld) [#/Vol] 5.51 1.45-7.50 k/uL Normal [facility] () Comment: Order Comment: Specimen Type : BLOOD SPECIMEN Performed By: #### 35009-7 # ###[facility]ORYCLIA [id number] [facility] [place] [address] Neutrophils/100 WBC (Bld) 46.7 % Normal [facility] (02264) Comment: Order Comment: Specimen Type : BLOOD SPECIMEN Performed By: #### 17317-3 # ###[facility]ATORYCLIA [id number] [facility] [place] [address] Nucleated RBC (Bld) <0.01 <0.01 10*3/uL Normal 06-19-2020 [facility] [#/Vol] [place] (00 000) Comment: Order Comment: Specimen Type : BLOOD SPECIMEN Performed By: #### 70034-7 # ###[facility]ATORYCLIA [id number] [facility] [place] [address] Nucleated RBC/100 WBC 0.0 0.0 /100 WBC Normal 06-19-20 [facility] (Bld) [Ratio] [place] ([address]) Comment: Order Comment: Specimen Type : BLOOD SPECIMEN Performed By: #### 19297-8 # ###[facility]ATORYCLIA [id number] [facility] [place] [address] Platelet mean volume (Bld) 10.4 9.0-12.7 fL Normal [facility] [Entitic vol] [place] ([address]) Comment: Order Comment: Specimen Type : BLOOD SPECIMEN Performed By: #### 35050-5 # ###[facility]ORYCLIA [id number] [facility] [place] [address] Platelets (Bld) [#/Vol] 324 150-400 k/uL Normal 2019 [facility] (00 000) Comment: Order Comment: Specimen Type : BLOOD SPECIMEN Performed By: #### 40297-3 # ###[facility]ATORYCLIA [id number] [place] [address] RBC (Bld) [#/Vol] 4.23 3.90-5.20 m/uL Normal 06-19-2020 [facility] (14005) Comment: Order Comment: Specimen Type : BLOOD SPECIMEN Performed By: #### 75857-3 # ###[facility]ORATORYCLIA [id number] [facility] [place] [address] RED CELL MORPH Normal Normal 06-19-2020 [facility] (16496) Comment: Order Comment: Specimen Type : BLOOD SPECIMEN Performed By: #### 10384-0 # ###[facility] LABORATORYCLIA [id number] [facility] [address] WBC (Bld) [#/Vol] 11.80 3.70-11.00 k/uL High 06-19-2020 [facility] (23341) Comment: Order Comment: Specimen Type : BLOOD SPECIMEN Performed By: #### 13984-6 # ###[facility] LABORATORYCLIA [id number] [facility] [address] cnpn on 2020-06-15 CNPN Telephone (AGGENS6) Normal 06-15-2020 [facility] SALLY MCGREGOR ([id number]) 1980 F Medical Date Time Provider Department Center 06/15/20 TATY EPREA (FACTORY LABORER, INSTRUCTIONAL RESOURCE TEACHER) AGGENS6 (13532) During your visit today, we recorded the following informati on about you: Taty Perea APRN.INSTRUCTIONAL RESOURCE TEACHER 06/15/2020 11:28 AM Signed Patient called the office wi th concerns for infection at her incision site. She states it is red, painful, swollen, and warm. Sh e is having a small amount of drainage that she describes as pus-like. She denies fevers or chills. She was offered an appointment to be seen today, however she lives 1 hour away and does not have transportation. She refuses to go to [facility] ER to be seen because they treat her poorly. I will send an RX to her pharmacy for an antibiotic. She is to notify the office if her symptoms worsen or do not improve. Taty Perea APRN, INSTRUCTIONAL RESOURCE TEACHER Allergies As of Date: 06/15/2020 Noted Allergy Reaction PENICILLINS 12/07/2009 2 - Rash CEPHALEXIN 10/20/2019 9 - Itching CHLORHEXIDINE 10/29/2016 2 - Rash Comments: Skin rash TORADOL (KETOROLAC) 05/25/2020 2 - Rash TRAMADOL 05/25/2020 2 - Rash ASA (SALICYLATES) 01/27/2011 14 - Other: See Comments Comments: ulcers CONTRAST DYE (IODINE) 05/17/2008 12 - Shortness of Breath IBUPROFEN 06/18/2016 8 - GI Upset PREDNISONE 06/18/2016 14 - Other: See Comments Comments: makes agitated and mean Date Reviewed: 06/15/2020 Reviewed by: Taty Mays Cnp) Eliazar - Fully Assessed Reason for Visit: Multiple Concerns [253] Primary Visit Diagnosis:Incisional infection [T81.49XA] Order(s):clindamycin (CLEOCIN) 300 mg capsuleTake 1 capsule by mouth four times daily for 5 days.Disp: 20 capsuleRfl: 0 Prescriptions as of 06/15/2020 Sig: CLINDAMYCIN HCL 300 MG CAPSULE Take 1 capsule by mouth four * HYDROMORPHONE 2 MG TABLET Take 1 tablet by mouth every * PRAZOSIN 1 MG CAPSULE Take 1 mg by mouth daily at b* HYOSCYAMINE SULFATE 0.125 MG * Take 1 tablet by mouth every * SUCRALFATE 1 GRAM TABLET Take 1 tablet by mouth four t* PROMETHAZINE 25 MG TABLET Take 1 tablet by mouth every * Patient taking differently: Take 25 mg by mouth every 6 h* PANTOPRAZOLE 40 MG TABLET,DEL* Take 1 tablet by mouth daily * DIPHENHYDRAMINE 25 MG CAPSULE Take 50 mg by mouth every 6 h* ESTRADIOL 2 MG TABLET Take 2 mg by mouth once daily. SERTRALINE 100 MG TABLET Take 1 tablet by mouth once d* QUETIAPINE 100 MG TABLET Take 1 tablet by mouth once d* Problem List As Of Date 06/15/2020 Noted Resolved Routine gynecological examination [Z01.419] 05/17/2008 Class: Chronic More... More... Family history of diabetes mellitus [Z83.3] 05/17/2008 More... Calculus of kidney [N20.0] 05/17/2008 More... Allergic rhinitis, cause unspecified [J30.9] 05/17/2008 More... Migraine without aura [G43.009] 05/17/2008 More... Smoker [F17.200] 05/17/2008 More... Impaired fasting glucose [R73.01] 05/17/2008 More... Benign liver cyst [K76.89] 05/24/2010 Class: Chronic More... Ovarian cyst [N83.209] 07/15/2012 Generalized anxiety disorder [F41.1] 03/31/2016 Reactive depression [F32.9] 03/31/2016 More... Adjustment insomnia [F51.02] 03/31/2016 Encounter for screening for cardiovascular diso*03/31/2016 Bilateral low back pain without sciatica [M54.5]06/18/2016 More... Pain in left hip [M25.552] 06/18/2016 Greater trochanteric bursitis [M70.60] 06/18/2016 Hydronephrosis of left kidney [N13.30] 02/05/2017 Hydroureter on left [N13.4] 02/05/2017 Right facial numbness [R20.0] 02/23/2017 Right upper extremity numbness [R20.0] 02/23/2017 Numbness of right lower extremity [R20.0] 02/23/2017 Weakness of right upper extremity [R29.898] 02/23/2017 Weakness of right lower extremity [R29.898] 02/23/2017 Vision blurred [H53.8] 02/23/2017 Lumbar spine pain [M54.5] 02/23/2017 Cervical spine pain [M54.2] 02/23/2017 Abnormal MRI, lumbar spine [R93.7] 02/23/2017 Hydroureter, left [N13.4] 03/30/2017 Lung nodules [R91.8] 01/22/2020 More... Intractable nausea and vomiting [R11.2] 05/25/2020 Chronic pain syndrome [G89.4] 06/06/2020 Liver cyst [K76.89] 06/08/2020 Prescriptions ordered this encounter Disp Refills Start End CLINDAMYCIN HCL 300 MG CAPSULE 20 c* 0 06/15/2020 06/20/2020 Route: ORAL Sig: Take 1 capsule by mouth four times daily for 5 days. Encounter Status:Closed by TATY PEREA CNP on 06/15/20 progress on 2020-05 PROGRESS HNO ID: [id number] Normal 06-13-2020 [facility] Author: Kimmie Jennings General Service: General Surgery Medical Author Type: Resident Center Type: Progress Notes ([id number]) Filed: 06/13/2020 6:55 AM Note Text: Attestation signed by Mala Almendarez at 06/18/2020 1:28 PM I saw and evaluated the patient. Discussed with the reside nt and agree with resident's findings and plan as documented in the resident's note. Elective General Surgery Progress Note SERVICE DATE: 06/13/2020 [facility] Service Pager: For questions or concerns Mon-Fri 6a-5p please page [phone]. After 5pm and on Weekends and Holidays, please page [phone]. SUBJECTIVE: Patient stayed overnight due to uncontrolled pain. This morn ing she still has significant pain that prevents her from taking a deep br eath and from ambulating on her own without assistance. No NV. Had 2 bowel movements overnight. Tolerating diet DIET REGULAR Nausea No Emesis No Flatus Yes Bowel movement Yes Pain Controlled No Ambulating States that she cannot ambulate d/t pain OBJECTIVE: Vitals: Temp (24hrs), Av.8 ?C (98.3 ?F), Min:36.4 ?C (97.5 ?F), Max:37.7 ?C (99.9 ?F) BP 99/62 Pulse 88 Temp 36.8 ?C (98.2 ?F) (Oral) Resp 1 8 Ht 154.9 cm (5' 1) Wt 89 kg (196 lb 3.4 oz) LMP 08/10/2006 SpO2 92% BMI 37.07 kg/m? O2 Therapy: Room Air IANDO: Date 06/12/20 07 - 06/13/20 0659 06/13/20 07 - 06/14/20 0659 Shift 1189-7301 4960-8811 4142-1142 24 Hour Total 0506-1500 9688-4623 6924-6031 24 Hour Total INTAKE PO 240 200 350 790 PO 240 200 350 790 Shift Total 240 200 350 790 OUTPUT Urine Urine Not Saved. 4 x 3 x 2 x 9 x # of BMs Number of BMs 1 x 2 x 3 x Shift Total Weight (kg) 89 89 89 89 89 89 89 89 MEDICATIONS Current Facility-Administered Medications Medication Dose Route Frequency - HYDROmorphone 2 mg tab(s) (DILAUDID) 2 mg ORAL q 3 H PRN - ibuprofen 600 mg tab(s) (MOTRIN) 600 mg ORAL TID PRN - acetaminophen 975 mg tab(s) (TYLENOL) 975 mg ORAL q 6 H - diphenhydrAMINE 25 mg (BENADRYL) 25 mg ORAL q 4 H PRN - melatonin 6 mg tab(s) 6 mg ORAL AT BEDTIME - pantoprazole DR 40 mg tab(s) (PROTONIX) 40 mg ORAL BEFORE BREAKFAST DAILY - sertraline 100 mg tab(s) (ZOLOFT) 100 mg ORAL DAILY - sucralfate 1 g tab(s) (CARAFATE) 1 g ORAL QID - enoxaparin 40 mg injection (LOVENOX) 40 mg SUBCUTANEOUS DA FEDERICO - sodium chloride 0.9 % (flush) 3-5 mL (BD POSIFLUSH) 3-5 mL INTRAVENOUS q 12 H - ondansetron 4 mg tab(s) (ZOFRAN) 4 mg ORAL q 6 H PRN Or - ondansetron (PF) 4 mg injection (ZOFRAN) 4 mg INTRAVENOUS q 6 H PRN - promethazine 25 mg tab(s) (PHENERGAN) 25 mg ORAL q 8 H PRN - HYDROmorphone 0.5-1 mg injection (DILAUDID) 0.5-1 mg INTRA VENOUS q 3 H PRN - QUEtiapine 100 mg tab(s) (SEROquel) 100 mg ORAL AT BEDTIME Labs: Recent Labs 06/13/20 0250 06/12/20 0315 NA 138 138 K 3.8 3.4* CHLOR 101 104 CO2 27 26 BUN 7 6* CREAT 0.87 0.87 GLUC 94 83 ANION 10 8* CA 9.1 8.0* MG 2.1 1.5* P 3.9 3.4 ALB 4.1 -- AST 69* -- ALT 73* -- ALKPHOS 98 -- TBILI 0.6 -- WBC 7.45 7.04 HB 12.1 10.5* HCT 37.9 32.9* PLT 236 182 Exam: GENERAL: mild/moderate distress d/t pain, Alert NEURO: Alert and answers questions appropriately HEENT: normocephalic, atraumatic LUNGS: Unlabored breathing but seems to have worse pain with inspiration CARDIAC: Regular rate and rhythm as above ABDOMEN: Soft, diffuse TTP - more so in RUQ, no peritoneal s igns, non-distended, Incision sites clean, dry, and intact with st lila strips and without signs of erythema, edema, fluctuance, warmth, or ind uration EXTREMITIES: CALLAHAN, No deformities, No edema SKIN: Skin color, texture, turgor normal, No rashes or lesio ns ASSESSMENT AND PLAN: Active Hospital Problems Diagnosis Date Noted - Liver cyst 06/08/2020 Assessment: 39 year old female with a history of pancreatitis and hepati c cysts presents admitted for RUQ pain and found to have multiple si mple hepatic cysts on MRI. ? Hospital Course: 06/08: MRI Panc/James: multiple simple hepatic cysts, MRCP: nor mal 06/11: Laparoscopic partial R hepatic lobectomy Plan: - Regular diet as tolerated - Pain control - Nausea is controlled at this time but will continue to mon itor - DVT ppx: SCDs, LVX - home anxiety and GERD meds - home seroquel - QTc on this admission is 462 - home benadryl for itchiness - Encourage OOB/ambulation - likely home today if pain controlled Follow up needs: TBD with attending, Dr. Almendarez SIGNATURE: Kimmie Jennings DO PATIENT NAME: Sally Mcgregor DATE: June 13, 2020 TIME: 6:54 AM Pager: see below Elective General Surgery Service Pager: For questions or concerns Mon-Thu 6a-5p please page [phone]. After 5pm and on Weekends and Holidays, please page [phone] if in ICU or [phone] if on RNF. PROGRESS HNO ID: [id number] Normal 06-13-2020 [facility] Author: Mer (Rn) VIN Bejarano General Service: Nursing Med ical Author Type: Registered Nurse Center Type: Progress Notes () Filed: 06/13/2020 12:39 AM Note Text: Patient IV got infiltrated. Patient requested IV only on her rt AC with one try. Refused other spots with better veins. Failed first attempt and patient does not want to have another IV. Surgery resident notified. plan of care on PLAN HNO ID: [id number] Normal 06-13-2020 [facility] Author: Aureliano Dietz DO General CARE Service: General Surgery Medical Author Type: Resident Center Type: Plan of Care ( ) Filed: 06/13/2020 4:57 PM Note Text: Attestation signed by Mala Almendarez at 06/18/2020 3:01 PM I saw and evaluated the patient. Discussed with the reside nt and agree with resident's findings and plan as documented in the resident's note. Patient was called regarding the 2 prescriptions of pain med icines upon discharge. She had previously been prescribed Dilaudid p.o. for her pain control postoperatively, however upon discharge it was recog nized that she received an additional prescription for 15 tabs of oxycodone . A discussion was had between myself and the patient regarding the risks of taking both medications at the same time and it was requeste d that she only take the Dilaudid given to her, as this was her origina l pain medication. I instructed her to not take any of the oxycodon es and dispose of them as needed due to the risk of overdose if she took both at the same time. Patient was in agreement with this plan. Aureliano Dietz, DO 06/13/2020 4:57 PM phosphorous blood o n 2020-06-13 Phosphate [Mass/Vol] 3.9 2.7-4.8 mg/dL Normal 0 [facility] (90976) Comment: Performed By: #### URIN2 ### # [facility] [address] [place] [address] mdrd gfr on 2020-05 GFR/1.73 sq M >60 >60mL/min/1.73m2 mL/min/{1.73_m2} Normal [facility] non-blacks MDRD (000 00) (S/P/Bld) [Vol rate/Area] Comment: Result Comment: If the patie nt is , multiply the result by 1.210. Performed By: #### GFR #### [address] [address] magnesium blood on 2020-06-13 Magnesium [Mass/Vol] 2.1 1.7-2.3 mg/dL Normal 0 [facility] ([address]70) Comment: Performed By: #### URIN2 ### # [address] [address] hemogram on 2020-05 Erythrocyte distribution 13.4 11.7-14.4 % Normal 06-13 [facility] width (RBC) [Ratio] System (20094) Comment: Performed By: #### URIN2 ### # [facility] [address] [place], [place] [address] Hematocrit (Bld) [Volume 37.9 34.1-44.9 % Normal 06-13 [facility] fraction] System (00 000) Comment: Performed By: #### URIN2 ### # [address] [address] Hemoglobin (Bld) 12.1 11.2-15.7 g/dL Normal 06-13-2020 [facility] [Mass/Vol] System (0 0000) Comment: Performed By: #### URIN2 ### # [facility] [address] [place], [place] [address] MCH (RBC) [Entitic mass] 28.9 25.6-32.2 pg Normal 06-13 [facility] (00 000) Comment: Performed By: #### URIN2 ### # [facility] [address] [place], [place] [address] MCHC (RBC) [Mass/Vol] 31.9 31.6-34.8 % Normal 06-13-20 20 [facility] ([address]225) Comment: Performed By: #### URIN2 ### # [facility] [address] [place], [place] [address] MCV (RBC) [Entitic vol] 90.7 79.4-94.8 fl Normal 2019 [facility] (00 000) Comment: Performed By: #### URIN2 ### # [facility] [address] [place], [place] [address] Platelet mean volume (Bld) 10.9 9.4-12.3 fl Normal [facility] [Entitic vol] System (75599) Comment: Performed By: #### URIN2 ### # [facility] [address] [place], [place] [address] Platelets (Bld) [#/Vol] 236 182-369 thou/cmm Normal 2019 [facility] (00 000) Comment: Performed By: #### URIN2 ### # [facility] [address] [place], [place] [address] RBC (Bld) [#/Vol] 4.18 3.93-5.22 mil/cmm Normal 06-13-2020 [facility] (00 000) Comment: Performed By: #### URIN2 ### # [facility] [address] [place], [place] [address] RDW SD 44.2 36.4-46.3 fl Normal 06-13-2020 [facility] ([address]707) Comment: Performed By: #### URIN2 ### # [facility] [address] [place], [place] [address] WBC (Bld) [#/Vol] 7.45 3.98-10.04 thou/cmm Normal 06-13-2020 [facility] (00 000) Comment: Performed By: #### URIN2 ### # [facility] [address] [place] [address] comprehensive metabolic panel on 2020-06-13 Albumin [Mass/Vol] 4.1 3.9-4.9 g/dL Normal 06-13-2020 [facility] (42006) Comment: Performed By: #### URIN2 ### # [facility] [address] [place] [address] ALP [Catalytic activity/Vol] 98 34-123 U/L Normal 0 06-13-2020 [facility] (00 000) Comment: Performed By: #### URIN2 ### # [facility] [address] [place] [address] ALT [Catalytic activity/Vol] 73 7-38 U/L High 0 06-13-2020 [facility] ([address]) Comment: Performed By: #### URIN2 ### # [facility] [address] [place] [address] Anion gap [Moles/Vol] 10 9-18 mmol/L Normal 06-13-20 20 [facility] ([address]19) Comment: Performed By: #### URIN2 ### # [facility] [address] [place] [address] AST [Catalytic activity/Vol] 69 13-35 U/L High 0 06-13-2020 [facility] ([address]) Comment: Performed By: #### URIN2 ### # [facility] [address] [place] [id number] Bilirubin [Mass/Vol] 0.6 0.2-1.3 mg/dL Normal 0 [facility] (93781) Comment: Performed By: #### URIN2 ### # [facility] [address] [place] [id number] Calcium [Mass/Vol] 9.1 8.5-10.2 mg/dL Normal 06-13-2020 [facility] ([address]21) Comment: Performed By: #### URIN2 ### # [facility] [address] [place], [place] [address] Chloride [Moles/Vol] 101 97-105 mmol/L Normal 0 [facility] ([address]19) Comment: Performed By: #### URIN2 ### # [facility] [address] [place], [place] [address] CO2 Blood 27 22-30 mmol/L Normal 06-13-2020 [facility] ([address]) Comment: Performed By: #### URIN2 ### # [facility] [address] [place], [place] [address] Creatinine [Mass/Vol] 0.87 0.58-0.96 mg/dL Normal 06-13-20 [facility] (00 000) Comment: Performed By: #### URIN2 ### # [facility] [address] [place], [place] [address] Glucose [Mass/Vol] 94 74-99 mg/dL Normal 06-13-2020 [facility] ([address]375) Comment: Result Comment: The [place] [employer] (ADA) provides guidance for cutoff values for fastin g glucose and random glucose. The ADA defines fasting as n o caloric intake for at least 8 hours.Fasting plasma glucose results between 100 to 125 mg/dL indicate increased risk for diabetes (prediabetes). Fasting plasma glucose resul ts greater than or equal to 126 mg/dL meet the criteria for diagnosis of diabetes. In the absence of unequivocal hyper glycemia, results should be confirmed by repeat testing. In a patient with classic symptoms of hyperglycemia or hyperglycemic crisis, random plasma glucose results great er than or equal to 200 mg/dL meet the criteria for diagno sis of diabetes. Reference: Standards of Medical Care in Diabetes 2016; [place] [employer]. Diabetes Care. 2016;39(Suppl 1). Performed By: #### URIN2 ### # [facility] [address] [place], [place] [address] Potassium [Moles/Vol] 3.8 3.7-5.1 mmol/L Normal 06-13-20 [facility] (00 000) Comment: Performed By: #### URIN2 ### # [facility] [address] [place], [place] [address] Protein [Mass/Vol] 7.3 6.3-8.0 g/dL Normal 06-13-2020 [facility] ([address]125) Comment: Performed By: #### URIN2 ### # [facility] [address] [place], [place] [address] Sodium [Moles/Vol] 138 136-144 mmol/L Normal 06-13-2020 [facility] ([address]48) Comment: Performed By: #### URIN2 ### # [facility] [address] [place], [place] [address] Urea nitrogen [Mass/Vol] 7 7-21 mg/dL Normal 06-13 [facility] ([address]508) Comment: Performed By: #### URIN2 ### # [facility] [address] [place], [place] [address] case managem on CASE MANAGEM HNO ID: [id number] Normal 06-13-20 [facility] Author: Britni PickardRn) VIN [facility] Service: Care Management ([id number]) Author Type: Registered Nurse Type: Care Mgt Progress Note Filed: 06/13/2020 11:06 AM Note Text: CARE MANAGEMENT DISCHARGE NOTE SERVICE DATE: 06/13/2020 SERVICE TIME: 11:00 AM LOS: 5 days Admission Date: 06/08/2020 DISCHARGE ARRANGEMENT (list agency and phone number) Discharge Arrangement: Home CAREGIVER ASSESSMENT: Caregiver is ready, willing and able to meet the patient's n eeds as recommended by the inter-professional team:: Yes Does the patient have an acute stroke diagnosis, or has the patient had a stroke during this admission?: No Patient's transition needs and plan for meeting these needs: Follow up care HANDOFF COMMUNICATION: Handoff to: Other Caregiver Other Caregiver Name/Phone: Floor RN TRANSPORTATION ARRANGEMENTS: Transportation Arrangements: [employer] (through [employer]) [place] [facility]: [phone] Trip #: [id number] Needs Prior to Discharge: Ready for Discharge Chart reviewed. Discharge held yesterday due to uncontrolled pain. Spoke with patient. Plan is for discharge today. Awaiting di awarfausto orders. Discharge disposition= Home with follow up care. SIGNATURE: Britni Grimaldo RN PATIENT NAME: Sally james DATE: June 13, 2020 TIME: 11:00 AM PAGER/CONTACT #: [phone] progress on 2020-05 PROGRESS HNO ID: [id number] Normal 06-12-2020 [place] Author: Nancy Abebe [facility] Service: General Surgery Medical Author Type: Resident Center Type: Progress Notes ([id number]) Filed: 06/12/2020 7:57 AM Note Text: Attestation signed by Mala Almendarez at 06/12/2020 9:28 PM Attending Note I personally saw and examined the patient. I reviewed the resident's note. I agree with the resident's assessment and plan with the maureen strong revisions and/or additions: Still with severe pain. Will hold DC today and poss dc [facility] Signature: Mala Almendarez MD Date: 06/12/2020 Time: 9:28 PM Elective General Surgery Progress Note SERVICE DATE: 06/12/2020 [facility] General Surgery Service Pager: For questions or concerns Mon-Fri 6a-5p please page [phone]. After 5pm and on Weekends and Holidays, please page [phone]. SUBJECTIVE: C/o significant pain that prevents her from taking a deep br eath. No NV. States that she had a BM last night. Tolerating diet DIET REGULAR Nausea No Emesis No Flatus Yes Bowel movement Yes Pain Controlled No Ambulating States that she cannot ambulate d/t pain OBJECTIVE: Vitals: Temp (24hrs), Av.5 ?C (97.7 ?F), Min:36.3 ?C (97.3 ?F), Max:36.9 ?C (98.4 ?F) BP 110/80 Pulse 91 Temp 36.9 ?C (98.4 ?F) (Oral) Resp 20 Ht 154.9 cm (5' 1) Wt 89.6 kg (197 lb 9.6 oz) LMP 08/10/20 06 SpO2 99% BMI 37.34 kg/m? O2 Therapy: Room Air IANDO: Date 06/11/20699 - 06/12/2065806/12/20699 - 06/13/20 0659 Shift 1330-3782 6657-4456 8026-7138 24 Hour Total 1297-9818 5570-3678 3012-8752 24 Hour Total INTAKE PO 100 100 PO 100 100 IV 1900 1900 OR Crystalloid intake (mL) 1000 1000 Volume (mL) (lactated ringers infusion) 900 900 Shift Total 3402 148 0652 OUTPUT Urine 257 282 1355 Void (ml) 600 600 OR Urine Output 500 500 Urine Not Saved. 1 x 3 x 4 x Blood 50 50 Estimated Blood loss 50 50 Shift Total 751 044 0641 Weight (kg) 89.6 89.6 89.6 89.6 89.6 89.6 89.6 89.6 MEDICATIONS Current Facility-Administered Medications Medication Dose Route Frequency - acetaminophen 975 mg tab(s) (TYLENOL) 975 mg ORAL q 6 H - diphenhydrAMINE 25 mg (BENADRYL) 25 mg ORAL q 4 H PRN - melatonin 6 mg tab(s) 6 mg ORAL AT BEDTIME - pantoprazole DR 40 mg tab(s) (PROTONIX) 40 mg ORAL BEFORE BREAKFAST DAILY - sertraline 100 mg tab(s) (ZOLOFT) 100 mg ORAL DAILY - sucralfate 1 g tab(s) (CARAFATE) 1 g ORAL QID - enoxaparin 40 mg injection (LOVENOX) 40 mg SUBCUTANEOUS DA FEDERICO - sodium chloride 0.9 % (flush) 3-5 mL (BD POSIFLUSH) 3-5 mL INTRAVENOUS q 12 H - ondansetron 4 mg tab(s) (ZOFRAN) 4 mg ORAL q 6 H PRN Or - ondansetron (PF) 4 mg injection (ZOFRAN) 4 mg INTRAVENOUS q 6 H PRN - oxyCODONE IR 5-10 mg tab(s) (ROXICODONE) 5-10 mg ORAL q 4 H PRN - promethazine 25 mg tab(s) (PHENERGAN) 25 mg ORAL q 8 H PRN - HYDROmorphone 0.5-1 mg injection (DILAUDID) 0.5-1 mg INTRA VENOUS q 3 H PRN - NaCl 0.9% iv infusion 125 mL/hr INTRAVENOUS CONTINUOUS - QUEtiapine 100 mg tab(s) (SEROquel) 100 mg ORAL AT BEDTIME Labs: Recent Labs 06/12/20 0315 06/10/20 2335 NA -- 139 K -- 3.7 CHLOR -- 102 CO2 -- 27 BUN -- 8 CREAT -- 0.90 GLUC -- 105* ANION -- 10 CA -- 9.2 MG -- 1.8 P -- 4.2 WBC 7.04 6.54 HB 10.5* 11.4 HCT 32.9* 35.0 PLT 182 229 Exam: GENERAL: mild/moderate distress d/t pain, Alert NEURO: Alert and answers questions appropriately HEENT: normocephalic, atraumatic LUNGS: Unlabored breathing but seems to have worse pain with inspiration CARDIAC: Regular rate and rhythm as above ABDOMEN: Soft, diffuse TTP - more so in RUQ, no peritoneal s igns, non-distended, Incision sites clean, dry, and intact without signs of erythema, edema, fluctuance, warmth, or induration EXTREMITIES: CALLAHAN, No deformities, No edema SKIN: Skin color, texture, turgor normal, No rashes or lesio ns ASSESSMENT AND PLAN: Active Hospital Problems Diagnosis Date Noted - Liver cyst 06/08/2020 Assessment: 39 year old female with a history of pancreatitis and hepati c cysts presents admitted for RUQ pain and found to have multiple si mple hepatic cysts on MRI. ? Hospital Course: 06/08: MRI Panc/James: multiple simple hepatic cysts, MRCP: nor mal 06/11: Laparoscopic partial R hepatic lobectomy Plan: - Regular diet as tolerated - Pain control - Nausea is controlled at this time but will continue to mon itor - DVT ppx: SCDs, LVX - home anxiety and GERD meds - home seroquel - QTc on this admission is 462 - home benadryl for itchiness - Encourage OOB/ambulation Follow up needs: TBD with attending, Dr. Almendarez SIGNATURE: Nancy Abebe DO PATIENT NAME: Sally james DATE: June 12, 2020 TIME: 6:11 AM Pager: see below Elective General Surgery Service Pager: For questions or concerns Mon-Fri 6a-5p please page [phone]. After 5pm and on Weekends and Holidays, please page [phone] if in ICU or [phone] if on RNF. plan of care on PLAN OF CARE HNO ID: [id number] Normal 06-12-20 [facility] Author: Page Burgess (Travel Ticketing Reviewer) [place] ([id number]) Service: Pharmacy Author Type: Pharmacist Type: Plan of Care Filed: 06/12/2020 10:36 AM Note Text: DISCHARGE MEDICATION REVIEW BY PHARMACY Patient Name: Sally Mcgregor Account #: Data Unavailable Admission Date: 06/08/2020 Date of Contact: June 12, 2020 Time of Contact: 10:36 A M Medication list was reviewed by a Pharmacist for drug intera ctions or drug related problems:Yes Below is a summary of pharmacist recommendations discussed w ith LIP: No Recommendations at this time from Discharge Medication Li st. Page Burgess, Travel Ticketing Reviewer June 12, 2020 10:36 AM Medication List START taking these medications oxyCODONE IR 5 mg immediate release tablet Commonly known as: ROXICODONE Take 1 tablet by mouth every 8 hours as needed for up to 5 d ays. CHANGE how you take these medications promethazine 25 mg tablet Commonly known as: PHENERGAN Take 1 tablet by mouth every 8 hours as needed (for nausea). What changed: when to take this CONTINUE taking these medications diphenhydrAMINE 25 mg capsule Commonly known as: BENADRYL estradiol 2 mg tablet Commonly known as: ESTRACE hyoscyamine 0.125 mg tablet Commonly known as: LEVSIN Take 1 tablet by mouth every 6 hours as needed. pantoprazole DR 40 mg tablet Commonly known as: PROTONIX Take 1 tablet by mouth daily before breakfast. Take on empty stomach, 1/2 hr before meal. prazosin 1 mg Cap Commonly known as: MINIPRESS QUEtiapine 100 mg tablet Commonly known as: SEROquel sertraline 100 mg tablet Commonly known as: ZOLOFT sucralfate 1 gram tablet Commonly known as: CARAFATE Take 1 tablet by mouth four times daily. Where to Get Your Medications These medications were sent to [facility] [address] [place] [address] Hours: Thursday-Thursday, 8am-6:30pm ? oxyCODONE IR 5 mg immediate release tablet phosphorous blood o n 2020-06-12 Phosphate [Mass/Vol] 3.4 2.7-4.8 mg/dL Normal 0 [facility] (29003) Comment: Performed By: #### [id number] ### # [place] [address] magnesium blood on 2020-06-12 Magnesium [Mass/Vol] 1.5 1.7-2.3 mg/dL Low 0 [facility] (35037) Comment: Performed By: #### CBCD1 ### # [place] [address] hemogram on 2020-05 Erythrocyte distribution 13.2 11.7-14.4 % Normal 06-12 [facility] width (RBC) [Ratio] System (13412) Comment: Performed By: #### CBCD1 ### # [place] [address] Hematocrit (Bld) [Volume 32.9 34.1-44.9 % Low 06-12 [facility] fraction] System (00 000) Comment: Performed By: #### CBCD1 ### # [place] [address] Hemoglobin (Bld) [Mass/Vol] 10.5 11.2-15.7 g/dL Low [facility] (00 000) Comment: Performed By: #### CBCD1 ### # [place] [address] MCH (RBC) [Entitic mass] 29.2 25.6-32.2 pg Normal 06-12 [facility] (00 000) Comment: Performed By: #### CBCD1 ### # [address], [place] [address] MCHC (RBC) [Mass/Vol] 31.9 31.6-34.8 % Normal 06-12-20 20 [facility] (79257) Comment: Performed By: #### [id number] ### # [facility] [address] [place], [place] [address] MCV (RBC) [Entitic vol] 91.4 79.4-94.8 fl Normal 2019 [facility] (00 000) Comment: Performed By: #### CBCD1 ### # [facility] [address] [place] [id number] Platelet mean volume (Bld) 11.5 9.4-12.3 fl Normal [facility] [Entitic vol] System (34814) Comment: Performed By: #### CBCD1 ### # [facility] [address] [place], [place] [address] Platelets (Bld) [#/Vol] 182 182-369 thou/cmm Normal 2019 [facility] (00 000) Comment: Performed By: #### CBCD1 ### # [facility] [address] [place], [place] [address] RBC (Bld) [#/Vol] 3.60 3.93-5.22 mil/cmm Low 06-12-2020 [facility] (63762) Comment: Performed By: #### CBCD1 ### # [facility] [address] [place], [place] [address] RDW SD 44.5 36.4-46.3 fl Normal 06-12-2020 [facility] (10963) Comment: Performed By: #### CBCD1 ### # [facility] [address] [place], [place] [address] WBC (Bld) [#/Vol] 7.04 3.98-10.04 thou/cmm Normal 06-12-2020 [facility] (00 000) Comment: Performed By: #### CBCD1 ### # [facility] [address] [place], [place] [address] case managem on 202 CASE MANAGEM HNO ID: [id number] Normal 06-12-20 [facility] Author: Britni (Rn) [facility] Service: Care Management ([id number]) Author Type: Registered Nurse Type: Care Mgt Progress Note Filed: 06/12/2020 9:25 AM Note Text: CARE MANAGEMENT PROGRESS NOTE SERVICE DATE: 06/12/2020 SERVICE TIME: 9:18 AM LOS: 4 days Admission Date: 06/08/2020 DISCHARGE ARRANGEMENT (list agency and phone number) Discharge Arrangement: Home CAREGIVER ASSESSMENT: Caregiver is ready, willing and able to meet the patient's n eeds as recommended by the inter-professional team:: Yes Does the patient have an acute stroke diagnosis, or has the patient had a stroke during this admission?: No Patient's transition needs and plan for meeting these needs: Follow up care HANDOFF COMMUNICATION: Handoff to: Other Caregiver Other Caregiver Name/Phone: Floor RN to give patient dischar ge instructions TRANSPORTATION ARRANGEMENTS: Transportation Arrangements: Car Needs Prior to Discharge: Ready for Discharge Discharge today. Discharge orders complete. Plan is home wit h self care and follow up. SIGNATURE: Britni Grimaldo RN PATIENT NAME: Sally Szymanski ee DATE: June 12, 2020 TIME: 9:18 AM PAGER/CONTACT #: [phone] basic metabolic panel on 2020-06-12 Anion gap [Moles/Vol] 8 9-18 mmol/L Low 06-12-20 20 [facility] (53057) Comment: Performed By: #### [id number] ### # [facility] [address] [place], [place] [address] Calcium [Mass/Vol] 8.0 8.5-10.2 mg/dL Low 06-12-2020 [facility] (49880) Comment: Performed By: #### [id number] ### # [facility] [address] [place], [place] [address] Chloride [Moles/Vol] 104 97-105 mmol/L Normal 0 [facility] (90873) Comment: Performed By: #### CBCD1 ### # [facility] [address] [place], [place] [address] CO2 Blood 26 22-30 mmol/L Normal 06-12-2020 [facility] (95325) Comment: Performed By: #### CBCD1 ### # [facility] [address] [place], [place] [address] Creatinine [Mass/Vol] 0.87 0.58-0.96 mg/dL Normal 06-12-20 [facility] (00 000) Comment: Performed By: #### CBCD1 ### # [facility] [address] [place], [place] [address] Glucose [Mass/Vol] 83 74-99 mg/dL Normal 06-12-2020 [facility] (97655) Comment: Result Comment: The [place] [employer] (ADA) provides guidance for cutoff values for fastin g glucose and random glucose. The ADA defines fasting as n o caloric intake for at least 8 hours.Fasting plasma glucose results between 100 to 125 mg/dL indicate increased risk for diabetes (prediabetes). Fasting plasma glucose resul ts greater than or equal to 126 mg/dL meet the criteria for diagnosis of diabetes. In the absence of unequivocal hyper glycemia, results should be confirmed by repeat testing. In a patient with classic symptoms of hyperglycemia or hyperglycemic crisis, random plasma glucose results great er than or equal to 200 mg/dL meet the criteria for diagno sis of diabetes. Reference: Standards of Medical Care in Diabetes 2016; [place] [employer]. Diabetes Care. 2016;39(Suppl 1). Performed By: #### CBCD1 ### # [facility] [address] [place], [place] [address] Potassium [Moles/Vol] 3.4 3.7-5.1 mmol/L Low 06-12-20 20 [facility] (64124) Comment: Performed By: #### CBCD1 ### # [facility] [address] [place], [place] [address] Sodium [Moles/Vol] 138 136-144 mmol/L Normal 06-12-2020 [facility] (59389) Comment: Performed By: #### CBCD1 ### # [facility] [address] [place], [place] [address] Urea nitrogen [Mass/Vol] 6 7-21 mg/dL Low 06-12 [facility] (21259) Comment: Performed By: #### CBCD1 ### # [facility] [address] [place], [place] [address] type and screen on 2020-06-11 ABO group Nom (Bld) O Normal 06-11-2020 [facility] (64128) Comment: Performed By: #### CBCD1 ### # [place] [address] Comment See Below Normal 06-11-2020 [facility] (35260) Comment: Result Comment: Screen &/or Xmatch expires in 3 days at 12 midnight. Redraw patient at that time. Performed By: #### CBCD1 ### # [place] [address] RH Type Positive Normal 06-11-2020 [facility] (00165) Comment: Performed By: #### CBCD1 ### # [place] [address] surgical tissue exam on 2020-06-11 Surgical Tissue Exam Test performed at [facility] Normal 06-11-2020 [facility] [address] [place] [address] ([id number]) NAME: SALLY MCGREGOR REQUESTING: MALA ALMENDAREZ MD FINAL DIAGNOSIS: LIVER, PARTIAL RIGHT LOBECTOMY - MODERATE STEATOSIS WITH MIX ED MACRO AND MICROVESICULAR CYTOPLASMIC FAT. SIMPLE HEPATIC CYST. OPERATIVE PROCEDURE: Laparoscopic partial right hepatic lobectomy CLINICAL INFORMATION: Symptomatic liver cyst GROSS DESCRIPTION: Partial right hepatic lobectomy Received in formalin labeled right partial hepatic lobectomy is a disrupted segment of membranous tissue measuring 5.6 x 4.0 x 0.5 cm. The membranous tissue ranges from < 0.1 to 0.2 cm in thickne ss. Portions of possible liver parenchyma are present. The membr anous tissue ranges from musa to pink-red. Papillations are not see n on the specimen. Migrant Leader sections are submitted in formalin in 4 cassettes. LETICIA/chadd VILLASEÑOR M.D., PATHOLOGIST (Electronic signature on file) Signed out: 06/13/2020 16:48 PRINTED: 06/13/2020 Page 1 of 1 Comment: Performed By: #### URIN2 ### # [place] [address] progress on 2020-05 PROGRESS HNO ID: [id number] Normal 06-11-2020 [place] Author: Kimmie Topetem General Service: General Surgery Medical Author Type: Resident Center Type: Progress Notes ([id number]) Filed: 06/11/2020 7:03 AM Note Text: Attestation signed by Mala Almendarez at 06/11/2020 11:58 AM Attending Note I personally saw and examined the patient. I reviewed the resident's note. I agree with the resident's assessment and plan with the maureen strong revisions and/or additions: Plan for OR for lap partial hepatic lobectomy for symptomati c liver cyst Signature: Mala Almendarez MD Date: 06/11/2020 Time: 11:58 AM Elective General Surgery Progress Note SERVICE DATE: 06/11/2020 Elective General Surgery Service Pager: For questions or concerns Mon-Fri 6a-5p please page [phone]. After 5pm and on Weekends and Holidays, please page [phone]. SUBJECTIVE: NAEON. Afebrile. Patient resting in bed this morning. Pain w ell controlled but again states that only dilaudid is working well for pain . Nausea controlled with medication. Patient is upset that her surger y is scheduled late because her mouth is very dry and bothersome this morni ng. Tolerating diet DIET NPO Nausea Yes Emesis No Flatus Yes Bowel movement Yes Pain Controlled Yes Ambulating Yes OBJECTIVE: Vitals: Temp (24hrs), Av.3 ?C (97.4 ?F), Min:36.2 ?C (97.2 ?F), Max:36.5 ?C (97.7 ?F) BP 129/100 Pulse 87 Temp 36.2 ?C (97.2 ?F) (Oral) Resp 18 Ht 154.9 cm (5' 1) Wt 89.6 kg (197 lb 9.6 oz) LMP 08/10/20 06 SpO2 95% BMI 37.34 kg/m? O2 Therapy: Room Air IANDO: Date 06/10/20699 - 06/11/20 0606/11/20699 - 06/12/20 0659 Shift 3309-9446 2815-5709 9935-2560 24 Hour Total 0753-9259 3354-7004 4107-1195 24 Hour Total INTAKE PO 600 600 PO 600 600 Shift Total 600 600 OUTPUT Urine Urine Not Saved. 2 x 2 x 4 x Shift Total Weight (kg) 88 88 89.6 89.6 89.6 89.6 89.6 89.6 MEDICATIONS Current Facility-Administered Medications Medication Dose Route Frequency - acetaminophen 975 mg tab(s) (TYLENOL) 975 mg ORAL q 6 H - diphenhydrAMINE 25 mg (BENADRYL) 25 mg ORAL q 4 H PRN - melatonin 6 mg tab(s) 6 mg ORAL AT BEDTIME - pantoprazole DR 40 mg tab(s) (PROTONIX) 40 mg ORAL BEFORE BREAKFAST DAILY - sertraline 100 mg tab(s) (ZOLOFT) 100 mg ORAL DAILY - sucralfate 1 g tab(s) (CARAFATE) 1 g ORAL QID - enoxaparin 40 mg injection (LOVENOX) 40 mg SUBCUTANEOUS DA FEDERICO - sodium chloride 0.9 % (flush) 3-5 mL (BD POSIFLUSH) 3-5 mL INTRAVENOUS q 12 H - ondansetron 4 mg tab(s) (ZOFRAN) 4 mg ORAL q 6 H PRN Or - ondansetron (PF) 4 mg injection (ZOFRAN) 4 mg INTRAVENOUS q 6 H PRN - oxyCODONE IR 5-10 mg tab(s) (ROXICODONE) 5-10 mg ORAL q 4 H PRN - promethazine 25 mg tab(s) (PHENERGAN) 25 mg ORAL q 8 H PRN - HYDROmorphone 0.5-1 mg injection (DILAUDID) 0.5-1 mg INTRA VENOUS q 3 H PRN - NaCl 0.9% iv infusion 125 mL/hr INTRAVENOUS CONTINUOUS - QUEtiapine 100 mg tab(s) (SEROquel) 100 mg ORAL AT BEDTIME Labs: Recent Labs 06/10/20 2335 06/09/20 0448 NA 139 141 K 3.7 3.8 CHLOR 102 106* CO2 27 24 BUN 8 9 CREAT 0.90 0.82 GLUC 105* 84 ANION 10 11 CA 9.2 8.8 MG 1.8 -- P 4.2 -- WBC 6.54 6.47 HB 11.4 10.6* HCT 35.0 33.7* PLT 229 199 Exam: GENERAL: No distress, Alert NEURO: AANDOx3, CN II-XII grossly intact HEENT: normocephalic, atraumatic LUNGS: Unlabored breathing room air CARDIAC: Regular rate and rhythm as above ABDOMEN: Soft, TTP RUQ, non-distended EXTREMITIES: CALLAHAN, No deformities, No edema SKIN: Skin color, texture, turgor normal, No rashes. Mild ex coriation on left medial calf ASSESSMENT AND PLAN: Active Hospital Problems Diagnosis Date Noted - Liver cyst 06/08/2020 Assessment: 39 year old female with a history of pancreatitis and hepati c cysts presents admitted for RUQ pain and found to have multiple si mple hepatic cysts on MRI. Hospital Course: 06/08: MRI Panc/James: multiple simple hepatic cysts, MRCP: nor mal Plan: - OR today with Dr. Almendarez for laparoscopic hepatic cyst remova l - NPO until after surgery - pain control: PRN tylenol, oxycodone, and dilaudid - nausea control: PRN zofran - DVT ppx: SCDs, lvx - home anxiety and GERD meds - home seroquel - QTc on this admission is 462 - home benadryl for itchiness - encourage ambulation Follow up needs: OR on Thursday SIGNATURE: Kimmie Jennings DO PATIENT NAME: Sally Mcgregor 8DATE: June 11, 2020 TIME: 7:02 AM Pager: see below Elective General Surgery Service Pager: For questions or concerns Thu-Thu 6a-5p please page [phone]. After 5pm and on Weekends and Holidays, please page [phone] if in ICU or [phone] if on RNF. operative no on 202 OPERATIVE NO HNO ID: [id number] Normal 06-11-20 [facility] Author: Mala Eddy [facility] Service: General Surgery ([id number]) Author Type: Physician Type: Operative Report Filed: 06/11/2020 1:39 PM Note Text: [facility] - Operative Report SALLY MCGREGOR : 1980 AGE: 39. SEX: F PATIENT TYPE: I HOSP SVC: GENS LOCATION: [facility] ATTENDING PHYSICIAN: MALA ALMENDAREZ CSN NUMBER: [id number] DATE OF SURGERY/PROCEDURE: 06/11/2020 INCISION/PROCEDURE START TIME: 10:51 AM INCISION CLOSE/PROCEDURE END TIME: 11:47 AM PREOPERATIVE DIAGNOSIS: Symptomatic liver cyst. POSTOPERATIVE DIAGNOSIS: Symptomatic liver cyst. SURGEON: Mala Almendarez MD HAND MOLDER AND CASTER: None. SURGERY/PROCEDURE: Laparoscopic partial right hepatic lobect sabra. ANESTHESIA: General INDICATION: This is a 39-year-old female with enlarging symp tomatic liver cyst in the right lobe of her liver. She was counseled on need for laparoscopic partial right hepatic lobectomy. Risks and bene fits of the procedure including, but not exclusive to bleeding, infectio n, possibility of postop recurrence and bile leak were discusse d with her and she elected to undergo with the procedure. DESCRIPTION OF PROCEDURE: Informed consent was obtained. The patient was brought to the operating room and placed on operative table in supine position. After the induction of general anesthetic, the pre operative check was completed, the abdomen was prepped and draped in s terile fashion. The patient was placed in left lateral decubitus po sition. A right 5 mm incision was made along the right subcostal borde r and using a 5 mm Optiview trocar, direct entry was obtained into the abd ominal cavity. We then performed a diagnostic laparoscopy. We then placed 12 mm trocar site and another 5 mm trocar site in the right upper quadrant. We then took down the right triangular ligament to mobilize the right lobe of the liver. We then visualized the back side of the liver. We were able to identify the cyst emanating from segment 7 of the li marina. Ultrasound showed no evidence of any concerning features. We then punctured the capsule with an aspiration needle and suctione d approximately 300 mL of fluid. The liver parenchyma over top of this was then taken with the Caiman surgical device and was removed a nd sent to Pathology for inspection. The inside of the cyst cavity was inspected, fou nd no evidence of any nodularity. We then cauterized the inside of the cyst cavity with the Aquamantys device. After ensuring that there was no evidence of bile leakage or bleeding, we turned our attentio n to closure. We closed the fascia at the 12 mm trocar site under direct v isualization with the Endo Close device. Ports were removed and the abdom en was desufflated. We closed skin with running 4-0 Monocryl stitch . At the end of the case, all sponge and needle counts were correct. The patient was awakened, transferred to PACU in stable condition. I was present and scrubbed the entire procedure. SPECIMEN: Partial right hepatic lobectomy. DRAINS: 0. WOUND CLASS: 2, clean, contaminated. Mala Almendarez MD NSA:[id number] /[id number] nursing prog on NURSING PROG HNO ID: [id number] Normal 06-11-20 20 [facility] Author: Garo PickardRnJoao Jackson RN [facility] Service: ? ([id number]) Author Type: Registered Nurse Type: Nursing Progress Note Filed: 06/11/2020 6:25 PM Note Text: Nursing Progress Note Patient Name: Sally Mcgregor Patient Location: [place] [id number]- Patient refusing IV fluids, states we can restart them when she goes to bed. Informed surgery team. This note was completed by: Garo Jackson RN hemogram on 2020-05 Erythrocyte distribution 13.0 11.7-14.4 % Normal 06-11 [facility] width (RBC) [Ratio] System (35241) Comment: Performed By: #### CBCD1 ### # [facility] [address] [place] [id number] Hematocrit (Bld) [Volume 35.0 34.1-44.9 % Normal 06-11 [facility] fraction] System (00 000) Comment: Performed By: #### CBCD1 ### # [facility] [address] [place], [place] [address] Hemoglobin (Bld) 11.4 11.2-15.7 g/dL Normal 06-11-2020 [facility] [Mass/Vol] System (0 0000) Comment: Performed By: #### CBCD1 ### # [facility] [address] [place], [place] [address] MCH (RBC) [Entitic mass] 29.2 25.6-32.2 pg Normal 06-11 [facility] (00 000) Comment: Performed By: #### [email or web address] ### # [facility] [address] [place], [place] [address] MCHC (RBC) [Mass/Vol] 32.6 31.6-34.8 % Normal 06-11-20 20 [facility] ([id number]) Comment: Performed By: #### CBCD1 ### # [facility] [address] [place], [place] [address] MCV (RBC) [Entitic vol] 89.5 79.4-94.8 fl Normal 2019 [facility] (00 000) Comment: Performed By: #### CBCD1 ### # [facility] [address] [place], [place] [address] Platelet mean volume (Bld) 11.1 9.4-12.3 fl Normal [facility] [Entitic vol] System ([id number]) Comment: Performed By: #### CBCD1 ### # [facility] [address] [place], [place] [address] Platelets (Bld) [#/Vol] 229 182-369 thou/cmm Normal 2019 [facility] (00 000) Comment: Performed By: #### CBCD1 ### # [facility] [address] [place], [place] [address] RBC (Bld) [#/Vol] 3.91 3.93-5.22 mil/cmm Low 06-11-2020 [employer] [facility] [email or web address] [facility] ([id number]) Comment: Performed By: #### CBCD1 ### # [facility] [address] [place], [place] [address] RDW SD 42.5 36.4-46.3 fl Normal 06-11-2020 [facility] ([id number]) Comment: Performed By: #### CBCD1 ### # [facility] [address] [place], [place] [address] WBC (Bld) [#/Vol] 6.54 3.98-10.04 thou/cmm Normal 06-11-2020 [facility] (00 000) Comment: Performed By: #### [email or web address] ### # [facility] [address] [place], [place] [address] case managem on CASE MANAGEM HNO ID: [id number] Normal 06-11-20 [facility] Author: Britni PickardRn) VIN Grimaldo [facility] Service: Care Management ([id number]) Author Type: Registered Nurse Type: Care Mgt Progress Note Filed: 06/11/2020 9:12 AM Note Text: CARE MANAGEMENT PROGRESS NOTE SERVICE DATE: 06/11/2020 SERVICE TIME: 9:10 AM LOS: 3 days Needs Prior to Discharge: To Be Determined;Pharmacy Bedside Delivery Chart reviewed. Patient independent at home with her signifi cant other prior to admission. Patient hopeful to return home once medi naima stable. Patient states her family and significant other are willing to assist as needed and will provide transportation. OR today for laparos copic hepatic cyst removal. Will continue to follow clinical course for DC planning needs. SIGNATURE: Britni Grimaldo RN PATIENT NAME: Sally Szymanski DATE: June 11, 2020 TIME: 9:10 AM PAGER/CONTACT #: [phone] anes preop on 06-11 ANES PREOP HNO ID: [id number] Normal 06-11-2020 [facility] Service: Anesthesiology ([id number]) Author Type: Physician Type: Anesthesia PreOp Filed: 06/11/2020 9:51 AM Note Text: ANESTHESIOLOGY DAY OF SURGERY NOTE SERVICE DATE: 06/11/2020 SERVICE TIME: 9:49 AM : 1980 Procedure(s) (LRB): LAPAROSCOPIC RESECTION LIVER, possible open, possible blood products (N/A) Surgeon(s): Mala Almendarez Estimated body mass index is 37.34 kg/m? as calculated from the following: Height as of this encounter: 154.9 cm (5' 1). Weight as of this encounter: 89.6 kg (197 lb 9.6 oz). Most recent hematocrit and potassium results: Hematocrit 35.0 06/10/2020 Potassium 3.7 06/10/2020 ANES DOS/PREOP NOTE: Vitals: 06/10/20 2244 06/11/20 0404 06/11/20 0705 06/11/20 0934 BP: 116/54 129/100 104/81 134/84 Pulse: 83 87 82 Resp: 18 18 18 16 Temp: 36.3 ?C (97.3 ?F) 36.2 ?C (97.2 ?F) 36.4 ?C (97.5 ?F) 36.3 ?C (97.3 ?F) TempSrc: Oral Oral Oral Temporal SpO2: 94% 95% 97% 98% Weight: 89.6 kg (197 lb 9.6 oz) Height: ACTIVE PROBLEM LIST Routine gynecological examination Family history of diabetes mellitus Calculus of Kidney Allergic rhinitis, cause unspecified Migraine Without Aura Smoker Impaired Fasting Glucose Benign Liver Cyst Ovarian Cyst Generalized Anxiety Disorder Reactive Depression Adjustment Insomnia Encounter for Screening for Cardiovascular Disorders Bilateral Low Back Pain Without Sciatica Pain in Left Hip Greater Trochanteric Bursitis Hydronephrosis of Left Kidney Hydroureter On Left Right Facial Numbness Right Upper Extremity Numbness Numbness of Right Lower Extremity Weakness of Right Upper Extremity Weakness of Right Lower Extremity Vision Blurred Lumbar Spine Pain Cervical Spine Pain Abnormal Mri, Lumbar Spine Hydroureter, Left Lung Nodules Intractable Nausea and Vomiting Chronic Pain Syndrome Liver Cyst PAST MEDICAL HISTORY Diagnosis Date - Allergic rhinitis, cause unspecified 05/17/2008 Spring and summer - Benign liver cyst 05/24/2010 CT scan at [facility] 11/2009 and 04/2010 showe 4 mm increase in size . No pain. No elevated LFTs on 03/11/2010. - Calculus of kidney 05/17/[address] Nicolas: Hospitalized age 20, and again later -- no procedures so far ([facility], most, 1995 [facility]) - Cancer (HCC) - Diverticulosis - Dysmenorrhea - Hemorrhoids - History of blood transfusion - Impaired fasting glucose 05/17/2008 Sugar 104 fasting, 04/21 - MIGRAINE 05/17/2008 Has used imitrex with good response; Keeps Vicodin on hand w hen needed; - Ovarian cyst 07/15/2012 - Pancreatitis - Smoker 05/17/2008 Started age 26, 1/2 a PPD PAST SURGICAL HISTORY Procedure Laterality Date - CHOLECYSTECTOMY HX - COLONOSCOPY 05/08/2020 poor prep, stool in entire colon, int hemorrhoids, diverticu losis - DANDC, DIAG AND/OR THERAPEUTIC - 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, mild esophagitis, 2 cm hiatal hernia - LIGATE FALLOPIAN TUBE - PAST SURGICAL HISTORY OF uterine ablation - PAST SURGICAL HISTORY OF cyst removal - REMOVAL OF OVARY(S) 2009 Oophorectomy right, still has left - REMOVAL OF OVARY(S) 01/2015 left removed - TOTAL ABDOM HYSTERECTOMY 08/31/06 Hysterectomy, MICHELINE FAMILY HISTORY Problem Relation Age of Onset - Diabetes Maternal Grandmother - Diabetes Maternal Grandfather - Lipids Maternal Grandfather - Stroke Maternal Grandfather - Coronary Artery Disease Maternal Grandfather - Cataract Maternal Grandfather - Pancreatic Cancer Maternal Grandfather - Diabetes Paternal Grandmother - Diabetes Paternal Grandfather - Coronary Artery Disease Paternal Grandfather - Thyroid Mother unsure of details - Arthritis Mother fibromyalgia - Blood Disease Mother blood clots, unsure of details (aorta?) - Breast Cancer Maternal Aunt - Lipids Maternal Uncle - Coronary Artery Disease Maternal Uncle - other (ovarian ca) Other maternal cousin - Colon Cancer No Family History Social History: Social History Tobacco Use - Smoking status: Former Smoker Packs/day: 0.50 Years: 3.00 Pack years: 1.50 Types: Cigarettes Quit date: 01/12/2017 Years since quittin.4 - Smokeless tobacco: Never Used - Tobacco comment: Approx. 3 cigarettes daily-1 pack every w [place] Substance Use Topics - Alcohol use: Yes Comment: Occasional - Drug use: Never No current facility-administered medications on file prior t o encounter. Current Outpatient Medications on File Prior to Encounter Medication Sig - prazosin (MINIPRESS) 1 mg cap Take 1 mg by mouth daily at bedtime. - hyoscyamine (LEVSIN) 0.125 mg tablet Take 1 tablet by mout h every 6 hours as needed. - sucralfate (CARAFATE) 1 gram tablet Take 1 tablet by mouth four times daily. - promethazine (PHENERGAN) 25 mg tablet Take 1 tablet by nick th every 8 hours as needed (for nausea). (Patient taking differently: T maninder 25 mg by mouth every 6 hours as needed (for nausea). ) - pantoprazole DR (PROTONIX) 40 mg tablet Take 1 tablet by m outh daily before breakfast. Take on empty stomach, 1/2 hr before meal. - diphenhydrAMINE (BENADRYL) 25 mg capsule Take 50 mg by nick th every 6 hours as needed. - sertraline (ZOLOFT) 100 mg tablet Take 1 tablet by mouth o nce daily. - QUEtiapine (SEROQUEL) 100 mg tablet Take 1 tablet by mouth once daily. - estradiol (ESTRACE) 2 mg tablet Take 2 mg by mouth once [place]. Current Facility-Administered Medications Medication Dose Route Frequency Provider Last Rate Last Dose - [MAR Hold due to Transfer] acetaminophen 975 mg tab(s) (TY LENOL) 975 mg ORAL q 6 H Kimmie (Res) Dick 975 mg at 06/10/20 2344 - [MAR Hold due to Transfer] diphenhydrAMINE 25 mg (BENADRYL ) 25 mg ORAL q 4 H PRN Kimmie (Res) Dick 25 mg at 06/11/20 0752 - [MAR Hold due to Transfer] melatonin 6 mg tab(s) 6 mg ORAL AT BEDTIME Zacharia (Res) Mirhaidari 6 mg at 06/09/20 2115 - [MAR Hold due to Transfer] pantoprazole DR 40 mg tab(s) (P ROTONIX) 40 mg ORAL BEFORE BREAKFAST DAILY Chris (Res) Demshar 40 mg a t 06/11/20 0540 - [MAR Hold due to Transfer] sertraline 100 mg tab(s) (ZOLOF T) 100 mg ORAL DAILY Chris (Res) Demshar 100 mg at 06/11/20 0752 - [MAR Hold due to Transfer] sucralfate 1 g tab(s) (CARAFATE ) 1 g ORAL QID Chris (Res) Demshar 1 g at 06/10/20 1957 - [MAR Hold due to Transfer] enoxaparin 40 mg injection (DONTRELL ENOX) 40 mg SUBCUTANEOUS DAILY Chris (Res) Demshar - [MAR Hold due to Transfer] sodium chloride 0.9 % (flush) 3 -5 mL (BD POSIFLUSH) 3-5 mL INTRAVENOUS q 12 H Chris (Res) Demshar 3 mL at 06/11/20 0752 - [MAR Hold due to Transfer] ondansetron 4 mg tab(s) (ZOFRAN ) 4 mg ORAL q 6 H PRN Chris (Res) Demshar Or - [MAR Hold due to Transfer] ondansetron (PF) 4 mg injection (ZOFRAN) 4 mg INTRAVENOUS q 6 H PRN Chris (Res) Demshar - [MAR Hold due to Transfer] oxyCODONE IR 5-10 mg tab(s) (RO XICODONE) 5-10 mg ORAL q 4 H PRN Chris (Res) Demshar 5 mg at 0 0404 - [MAR Hold due to Transfer] promethazine 25 mg tab(s) (PHEN ERGAN) 25 mg ORAL q 8 H PRN Chris (Res) Demshar 25 mg at 06/09/20 0443 - [MAR Hold due to Transfer] HYDROmorphone 0.5-1 mg injectio n (DILAUDID) 0.5-1 mg INTRAVENOUS q 3 H PRN Nigel (Res) Hockley 1 mg at 06/11/20 0536 - [MAR Hold due to Transfer] NaCl 0.9% iv infusion 125 mL/hr INTRAVENOUS CONTINUOUS Nigel (Res) [place] 125 mL/hr at 06/10/20 2248 1 25 mL/hr at 06/10/20 2248 - [MAR Hold due to Transfer] QUEtiapine 100 mg tab(s) (SEROq uel) 100 mg ORAL AT BEDTIME Kimmie (Res) Dick 100 mg at 06/10/201956 Allergies: ALLERGIES Allergen Reactions - Penicillins Rash - Cephalexin Itching - Chlorhexidine Rash Skin rash - Toradol [Ketorolac] Rash - Tramadol Rash - Asa [Salicylates] Other: See Comments ulcers - Contrast Dye [Iodin* Shortness of Breath - Ibuprofen GI Upset - Prednisone Other: See Comments makes agitated and mean DOS EXAM: Adequate NPO status: Yes Anesthetic risks, benefits, alternatives, personnel and cons ent discussed: Yes Patient agrees to proceed: Yes Previous Anesthesia: No history of adverse event. Airway Assessment: MP 3; Neck ROM: Full ROM without neurolog ic symptoms; Airway Evaluation: Thick neck Symptoms of Sleep Apnea: BMI > 35 and Neck circumference > 1 5.75 inches Dentition: Teeth intact. Denies loose teeth or frontal caps Additional Physical Exam: Lungs: Patient health status unchanged since recent history and physical. See history and physical for exam findings. Cardiac: Patient health status unchanged since recent histor y and physical. See history and physical for exam findings. Additional Pertinent Findings: N/A Blood Products: Not anticipated for this procedure. Anesthetic Plan: General, Standard ASA Monitors Pain Management Plan: Parenteral or Oral and Possible TAP bl ocks (will discuss with surgeon) ASA Class: 3 Other Medical Problems: hx pancreatitis, hx hepatic cysts, c hronic abdominal pain admitted with abdominal pain with nausea. Oth er hx includes obesity, controlled GERD, s/p hysterectomy Chronic Beta Lizandro medication administered within 24 hours : N/A I have interviewed and examined the patient. I have reviewed the medical record and/or the pre-anesthesia evaluation, pertinent labs, and test results. Significant changes in the patient's condition since the His tory and Physical, not otherwise documented in primary service progre ss notes: No This contains updated information obtained within 48 hours o f Surgery/Procedure. SIGNATURE: Ruben Thompson MD PATIENT NAME: Sally joseph DATE: June 11, 2020 TIME: 9:49 AM CSN: [id number] anes post on 06-11 ANES POST HNO ID: [id number] Normal 06-11-2020 [facility] Author: Edwin Sesay [place] ([id number]) Service: Anesthesiology Author Type: Physician Type: Anesthesia PostOp Filed: 06/11/2020 3:36 PM Note Text: POST ANESTHESIA EVALUATION NOTE SERVICE DATE: 06/11/2020 SERVICE TIME: 3:36 PM : 1980 Vitals: 06/11/20 1200 06/11/20 1300 06/11/20 1425 06/11/20 1502 Temp: 36.5 ?C (97.7 ?F) 36.5 ?C (97.7 ?F) 36.4 ?C (97.5 ?F) 36.4 ?C (97.5 ?F) 06/11/20 1400 06/11/20 1425 06/11/20 1430 06/11/20 1502 BP: 121/69 115/79 109/74 86/70 06/11/20 1400 06/11/20 1425 06/11/20 1430 06/11/20 1502 Pulse: 89 91 85 102 06/11/20 1400 06/11/20 1425 06/11/20 1430 06/11/20 1502 Resp: 17 19 10 17 06/11/20 1425 06/11/20 1430 06/11/20 1502 06/11/20 1524 SpO2: 95% 98% 92% 95% Validated Vital Signs: Yes POST ANES STATUS: No apparent anesthetic complications. The patient is appropriately hydrated with stable respiratory and cardiovas cular status. Patient has safe and adequate airway control. The patient man s appropriate pain relief and no significant post operative nausea or vomi ting. The patient has achieved baseline mental status. Intra-Operative Events: No Significant Anesthesia Events Further assessment by Anesthesia Service: None Other Remarks: SIGNATURE: Edwin Sesay MD PATIENT NAME: Sally caldwell DATE: June 11, 2020 TIME: 3:36 PM PAGER/CONTACT #: progress on 2020-05 PROGRESS HNO ID: [id number] Normal 06-10-2020 [facility] Author: Mer PickardRnJoao Bejarano RN [place] ([id number]) Service: Nursing Author Type: Registered Nurse Type: Progress Notes Filed: 06/10/2020 7:50 AM Note Text: ICU nurse was called to help with the blood draw. However, t he patient refused blood draw on the site with good veins per ultrasclary d. She is insisting on the site without veins. Patient agitated and in sisted that she does not want to get stuck anymore. Surgery resident Kimmie was notified. PROGRESS HNO ID: [id number] Normal 06-10-2020 [facility] Author: Kimmie Jennings [place] ([id number]) Service: General Surgery Author Type: Resident Type: Progress Notes Filed: 06/10/2020 7:29 AM Note Text: Attestation signed by Johnnie Reynoos at 06/10/2020 2:40 P M I saw and evaluated the patient. Discussed with the reside nt and agree with resident's findings and plan as documented in the resident's note. For surgery tomorrow. Still complaining of pain. [facility] General Surgery Progress Note SERVICE DATE: 06/10/2020 [facility] Service Pager: For questions or concerns Mon-Fri 6a-5p please page [phone]. After 5pm and on Weekends and Holidays, please page [phone]. SUBJECTIVE: NAEON. Afebrile. Patient resting in bed this morning. Pain w ell controlled but states that only dilaudid is working well for pain. Naus ea controlled with medication. Continues to have pruritis which is somewha t normal for her, but thinks it may be worse from the hospital detergent/ blankets. No discreet rashes. Benadryl is controlling pruritis. Passing f latus and having loose bowel movements. Tolerating po intake. Tolerating diet DIET REGULAR DIET NPO Nausea Yes Emesis No Flatus Yes Bowel movement Yes Pain Controlled Yes Ambulating Yes OBJECTIVE: Vitals: Temp (24hrs), Av.3 ?C (97.4 ?F), Min:36.2 ?C (97.2 ?F), Max:36.5 ?C (97.7 ?F) BP 114/52 Pulse 74 Temp 36.5 ?C (97.7 ?F) (Oral) Resp 18 Ht 154.9 cm (5' 1) Wt 88 kg (194 lb) LMP 08/10/2006 SpO2 98% BMI 36.66 kg/m? O2 Therapy: Room Air IANDO: Date 06/09/20 0700 - 06/10/20 0659 06/10/20 0700 - 06/11/20 0659 Shift 6492-2875 3506-0837 1036-1501 24 Hour Total 2292-5129 5030-0225 3365-0151 24 Hour Total INTAKE PO 965 971 6629 PO 456 613 6515 Shift Total 318 563 1373 OUTPUT Urine Urine Not Saved. 2 x 1 x 3 x 6 x Shift Total Weight (kg) 87.2 87.2 88 88 88 88 88 88 MEDICATIONS Current Facility-Administered Medications Medication Dose Route Frequency - acetaminophen 975 mg tab(s) (TYLENOL) 975 mg ORAL q 6 H - melatonin 6 mg tab(s) 6 mg ORAL AT BEDTIME - pantoprazole DR 40 mg tab(s) (PROTONIX) 40 mg ORAL BEFORE BREAKFAST DAILY - sertraline 100 mg tab(s) (ZOLOFT) 100 mg ORAL DAILY - sucralfate 1 g tab(s) (CARAFATE) 1 g ORAL QID - enoxaparin 40 mg injection (LOVENOX) 40 mg SUBCUTANEOUS DA [place] - sodium chloride 0.9 % (flush) 3-5 mL (BD POSIFLUSH) 3-5 mL INTRAVENOUS q 12 H - ondansetron 4 mg tab(s) (ZOFRAN) 4 mg ORAL q 6 H PRN Or - ondansetron (PF) 4 mg injection (ZOFRAN) 4 mg INTRAVENOUS q 6 H PRN - oxyCODONE IR 5-10 mg tab(s) (ROXICODONE) 5-10 mg ORAL q 4 H PRN - promethazine 25 mg tab(s) (PHENERGAN) 25 mg ORAL q 8 H PRN - HYDROmorphone 0.5-1 mg injection (DILAUDID) 0.5-1 mg INTRA VENOUS q 3 H PRN - diphenhydrAMINE 25 mg (BENADRYL) 25 mg ORAL q 6 H PRN - QUEtiapine 100 mg tab(s) (SEROquel) 100 mg ORAL AT BEDTIME Labs: Recent Labs 06/09/20 0448 06/08/20 0630 NA 141 140 K 3.8 3.7 CHLOR 106* 104 CO2 24 25 BUN 9 13 CREAT 0.82 0.80 GLUC 84 91 ANION 11 11 CA 8.8 9.6 MG -- 2.0 P -- 3.3 ALB -- 4.7 AST -- see below ALT -- 17 ALKPHOS -- 94 TBILI -- 0.3 WBC 6.47 7.30 HB 10.6* 11.8 HCT 33.7* 38.1 PLT 199 230 INR -- 1.07 Exam: GENERAL: No distress, Alert NEURO: AANDOx3, CN II-XII grossly intact HEENT: normocephalic, atraumatic LUNGS: Unlabored breathing room air CARDIAC: Regular rate and rhythm as above ABDOMEN: Soft, TTP RUQ, non-distended EXTREMITIES: CALLAHAN, No deformities, No edema SKIN: Skin color, texture, turgor normal, No rashes. Mild ex coriation on left medial calf ASSESSMENT AND PLAN: Active Hospital Problems Diagnosis Date Noted - Liver cyst 06/08/2020 Assessment: 39 year old female with a history of pancreatitis and hepati c cysts presents admitted for RUQ pain and found to have multiple si mple hepatic cysts on MRI. Hospital Course: 06/08: MRI Panc/James: multiple simple hepatic cysts, MRCP: nor mal Plan: - OR on Thursday with Dr. Almendarez for laparoscopic hepatic cyst re moval - Regular diet until Thursday @ [place] - pain control: PRN tylenol, oxycodone, and dilaudid - nausea control: PRN zofran - DVT ppx: SCDs, lvx - home anxiety and GERD meds - home seroquel - QTc on this admission is 462 - home benadryl for itchiness - encourage ambulation Follow up needs: OR on Thursday SIGNATURE: Kimmie Jennings DO PATIENT NAME: Sally Mcgregor DATE: June 10, 2020 TIME: 7:29 AM Pager: see below Elective General Surgery Service Pager: For questions or concerns Thu-Thu 6a-5p please page [phone]. After 5pm and on Weekends and Holidays, please page [phone] if in ICU or [phone] if on RNF. PROGRESS HNO ID: [id number] Normal 06-10-2020 [facility] Author: Mer PickardRnJoao Bejarano RN [place] ([id number]) Service: Nursing Author Type: Registered Nurse Type: Progress Notes Filed: 06/10/2020 1:28 AM Note Text: Patient refused Oxycodone and only wanted to take Dilaudid. She stated that oxy is not helping her. At 11pm, she agreed to take oxy codone and tylenol as Dilaudid is not yet due. She was informed that ox y is the first line prior Dilaudid, and Dilaudid is only for breakthrough p ain. Patient got upset and stated that she wanted Dilaudid every 3 hours. phosphorous blood o n 2020-06-10 Phosphate [Mass/Vol] 4.2 2.7-4.8 mg/dL Normal 0 [facility] ([id number]) Comment: Performed By: #### CBCD1 ### # [address] [address] magnesium blood on 2020-06-10 Magnesium [Mass/Vol] 1.8 1.7-2.3 mg/dL Normal 0 [facility] ([id number]) Comment: Performed By: #### CBCD1 ### # [address] [address] coronavirus 2019 on 2020-06-10 COVID 19 Result SECURITY CHECKER Negative CORNEG Normal 06-10-2020 [facility] ([id number]) Comment: Result Comment: Negative for COVID19 (SARS CoV2) by PCR. This test was developed and its performance characteristics determined by [facility]'s [facility] [place]. This test has bee n authorized by FDA under an Emergency Use Authorization (EUA). This test has been validated in accordance with the FDA's Guidance Document Policy for Diagnostics Test ing in Laboratories Certified to Perform High Complexity Testing under CLI A prior to Emergency use Authorization for Coronavirus Disease 2019 dur ing the Public Health Emergency issued on November 12, 2019. Performing Laboratory: [facility] [address] [place] [address] Performed By: #### CBCD1 ### # [address] [address] basic metabolic panel on 2020-06-10 Anion gap [Moles/Vol] 10 9-18 mmol/L Normal 06-10-20 20 [facility] (05996) Comment: Performed By: #### CBCD1 ### # [address] [address] Calcium [Mass/Vol] 9.2 8.5-10.2 mg/dL Normal 06-10-2020 [facility] (65523) Comment: Performed By: #### CBCD1 ### # [facility] [address] [place], [place] [address] Chloride [Moles/Vol] 102 97-105 mmol/L Normal 0 [facility] ([id number]) Comment: Performed By: #### CBCD1 ### # [facility] [address] [place], [place] [address] CO2 Blood 27 22-30 mmol/L Normal 06-10-2020 [facility] ([id number]) Comment: Performed By: #### CBCD1 ### # [facility] [address] [place], [place] [address] Creatinine [Mass/Vol] 0.90 0.58-0.96 mg/dL Normal 06-10-20 20 [facility] (00 000) Comment: Performed By: #### CBCD1 ### # [facility] [address] [place], [place] [address] Glucose [Mass/Vol] 105 74-99 mg/dL High 06-10-2020 [facility] ([id number]) Comment: Result Comment: The [place] [employer] (ADA) provides guidance for cutoff values for fastin g glucose and random glucose. The ADA defines fasting as n o caloric intake for at least 8 hours.Fasting plasma glucose results between 100 to 125 mg/dL indicate increased risk for diabetes (prediabetes). Fasting plasma glucose resul ts greater than or equal to 126 mg/dL meet the criteria for diagnosis of diabetes. In the absence of unequivocal hyper glycemia, results should be confirmed by repeat testing. In a patient with classic symptoms of hyperglycemia or hyperglycemic crisis, random plasma glucose results great er than or equal to 200 mg/dL meet the criteria for diagno sis of diabetes. Reference: Standards of Medical Care in Diabetes 2016; [place] [employer]. Diabetes Care. 2016;39(Suppl 1). Performed By: #### CBCD1 ### # [facility] [address] [place], [place] [address] Potassium [Moles/Vol] 3.7 3.7-5.1 mmol/L Normal 06-10-20 [facility] (00 000) Comment: Performed By: #### CBCD1 ### # [facility] [address] [place], [place] [address] Sodium [Moles/Vol] 139 136-144 mmol/L Normal 06-10-2020 [facility] ([id number]) Comment: Performed By: #### CBCD1 ### # [facility] [address] [place], [place] [address] Urea nitrogen [Mass/Vol] 8 7-21 mg/dL Normal 06-10 [facility] ([id number]) Comment: Performed By: #### CBCD1 ### # [facility] [address] [place] [id number] allied health on 03-06-27 ALLIED HNO ID: [id number] Normal 06-10-2020 [facility] Author: Chaplain Suarez (Chaplain) General Service: Spiritual Care Medical Author Type: Room Service Clerk Center Type: [facility] ([id number]) Filed: 06/10/2020 7:39 PM Note Text: SPIRITUALCARE Spiritual Care Visit- Brief Note Name: Sally Mcgregor Date: June 10, 2020 Notes: Pre-surgery Patient Nothing needed tonight. Room Service Clerk Signature: Chaplain Erick To contact the Spiritual Care Department: Please call [phone] or Page the On-Call Room Service Clerk at [phone] Thank you for the opportunity to be of service. This is an electronically created document. IF PRINTED, PLEASE DO NOT REMOVE FROM THE CHART OR MODIFY MT INTED COPY. progress on 2020-05 PROGRESS HNO ID: [id number] Normal 06-09-2020 [facility] Author: Kimmie Jennings General Service: General Surgery Medical Author Type: Resident Center Type: Progress Notes ([id number]) Filed: 06/09/2020 7:14 AM Note Text: Attestation signed by Johnnie Reynoso at 06/09/2020 1:29 P M I saw and evaluated the patient. Discussed with the reside nt and agree with resident's findings and plan as documented in the resident's note. Patient is primarily just complaining of pain. Abdomen is soft with minimal tenderness. Tolerating diet. For surgery on Thursday. Elective General Surgery Progress Note SERVICE DATE: 06/09/2020 [facility] General Surgery Service Pager: For questions or concerns Thu-Thu 6a-5p please page [phone]. After 5pm and on Weekends and Holidays, please page [phone]. SUBJECTIVE: NAEON. Afebrile. Patient resting in bed this morning. Pain w ell controlled. Nausea controlled with medication. Passing flatu s and having loose bowel movements. Tolerating po intake. Tolerating diet DIET REGULAR DIET NPO Nausea Yes Emesis No Flatus Yes Bowel movement Yes Pain Controlled Yes Ambulating Yes OBJECTIVE: Vitals: Temp (24hrs), Av.4 ?C (97.6 ?F), Min:36.2 ?C (97.2 ?F), Max:36.9 ?C (98.4 ?F) BP 93/59 Pulse 77 Temp 36.3 ?C (97.3 ?F) (Oral) Resp 1 8 Ht 154.9 cm (5' 1) Wt 87.2 kg (192 lb 4.8 oz) LMP 08/10/20 06 SpO2 97% BMI 36.33 kg/m? O2 Therapy: Room Air IANDO: Date 06/08/20 07 - 06/09/20 0606/09/20699 - 06/10/20 0659 Shift 6172-2194 2610-2915 1648-4045 24 Hour Total 8457-4075 4040-4552 0210-5716 24 Hour Total INTAKE Shift Total OUTPUT Urine Urine Not Saved. 1 x 1 x 2 x # of BMs Number of BMs 1 x 1 x 2 x Shift Total Weight (kg) 87.2 87.2 87.2 87.2 87.2 87.2 87.2 87.2 MEDICATIONS Current Facility-Administered Medications Medication Dose Route Frequency - pantoprazole DR 40 mg tab(s) (PROTONIX) 40 mg ORAL BEFORE BREAKFAST DAILY - sertraline 100 mg tab(s) (ZOLOFT) 100 mg ORAL DAILY - sucralfate 1 g tab(s) (CARAFATE) 1 g ORAL QID - enoxaparin 40 mg injection (LOVENOX) 40 mg SUBCUTANEOUS DA FEDERICO - sodium chloride 0.9 % (flush) 3-5 mL (BD POSIFLUSH) 3-5 mL INTRAVENOUS q 12 H - ondansetron 4 mg tab(s) (ZOFRAN) 4 mg ORAL q 6 H PRN Or - ondansetron (PF) 4 mg injection (ZOFRAN) 4 mg INTRAVENOUS q 6 H PRN - acetaminophen 975 mg tab(s) (TYLENOL) 975 mg ORAL q 6 H MT N - oxyCODONE IR 5-10 mg tab(s) (ROXICODONE) 5-10 mg ORAL q 4 H PRN - promethazine 25 mg tab(s) (PHENERGAN) 25 mg ORAL q 8 H PRN - HYDROmorphone 0.5-1 mg injection (DILAUDID) 0.5-1 mg INTRA VENOUS q 3 H PRN - diphenhydrAMINE 25 mg (BENADRYL) 25 mg ORAL q 6 H PRN - iv contrast (radiology procedure) INTRAVENOUS DIRECTED PRN - QUEtiapine 100 mg tab(s) (SEROquel) 100 mg ORAL AT BEDTIME Labs: Recent Labs 06/09/20 0448 06/08/20 0630 NA 141 140 K 3.8 3.7 CHLOR 106* 104 CO2 24 25 BUN 9 13 CREAT 0.82 0.80 GLUC 84 91 ANION 11 11 CA 8.8 9.6 MG -- 2.0 P -- 3.3 ALB -- 4.7 AST -- see below ALT -- 17 ALKPHOS -- 94 TBILI -- 0.3 WBC 6.47 7.30 HB 10.6* 11.8 HCT 33.7* 38.1 PLT 199 230 INR -- 1.07 Exam: GENERAL: No distress, Alert NEURO: AANDOx3, CN II-XII grossly intact HEENT: normocephalic, atraumatic LUNGS: Unlabored breathing room air CARDIAC: Regular rate and rhythm as above ABDOMEN: Soft, TTP RUQ, non-distended EXTREMITIES: CALLAHAN, No deformities, No edema SKIN: Skin color, texture, turgor normal, No rashes or lesio ns ASSESSMENT AND PLAN: Active Hospital Problems Diagnosis Date Noted - Liver cyst 06/08/2020 Assessment: 39 year old female with a history of pancreatitis and hepati c cysts presents admitted for RUQ pain and found to have multiple si mple hepatic cysts on MRI. Hospital Course: 06/08: MRI Panc/James: multiple simple hepatic cysts, MRCP: nor mal Plan: - OR on Thursday with Dr. Almendarez for laparoscopic hepatic cyst re moval - Regular diet until Thursday @ [place] - pain control: PRN tylenol, oxycodone, and dilaudid - nausea control: PRN zofran - DVT ppx: SCDs, lvx - home anxiety and GERD meds - home benadryl for itchiness - encourage ambulation Follow up needs: OR on Thursday SIGNATURE: Kimmie Jennings DO PATIENT NAME: Sally Mcgregor DATE: June 09, 2020 TIME: 7:00 AM Pager: see below Elective General Surgery Service Pager: For questions or concerns Thu-Thu 6a-5p please page [phone]. After 5pm and on Weekends and Holidays, please page [phone] if in ICU or [phone] if on RNF. hemogram on 2020-05 Erythrocyte distribution 13.2 11.7-14.4 % Normal 06-09 [facility] width (RBC) [Ratio] System ([id number]) Comment: Performed By: #### GFR #### [address] [address] Hematocrit (Bld) [Volume 33.7 34.1-44.9 % Low 06-[address] [facility]] System (00 000) Comment: Performed By: #### GFR #### [facility] [address] [place], [place] [address] Hemoglobin (Bld) [Mass/Vol] 10.6 11.2-15.7 g/dL Low [facility] (00 000) Comment: Performed By: #### GFR #### [place] [address] MCH (RBC) [Entitic mass] 28.8 25.6-32.2 pg Normal 06-09 [facility] (00 000) Comment: Performed By: #### GFR #### [place] [address] MCHC (RBC) [Mass/Vol] 31.5 31.6-34.8 % Low 06-09-20 20 [facility] (69475) Comment: Performed By: #### GFR #### [place] [address] MCV (RBC) [Entitic vol] 91.6 79.4-94.8 fl Normal 2019 [facility] (00 000) Comment: Performed By: #### GFR #### [place] [address] Platelet mean volume (Bld) 11.6 9.4-12.3 fl Normal [facility] [Entitic vol] System (62775) Comment: Performed By: #### GFR #### [place] [id number] Platelets (Bld) [#/Vol] 199 182-369 thou/cmm Normal 2019 [facility] (00 000) Comment: Performed By: #### GFR #### [place] [address] RBC (Bld) [#/Vol] 3.68 3.93-5.22 mil/cmm Low 06-09-2020 [facility] ([address]35) Comment: Performed By: #### GFR #### [place] [address] RDW SD 43.9 36.4-46.3 fl Normal 06-09-2020 [facility] (24150) Comment: Performed By: #### GFR #### [facility] [address] [place], [place] [address] WBC (Bld) [#/Vol] 6.47 3.98-10.04 thou/cmm Normal 06-09-2020 [facility] (00 000) Comment: Performed By: #### GFR #### [facility] [address] [place], [place] [address] basic metabolic panel on 2020-06-09 Anion gap [Moles/Vol] 11 9-18 mmol/L Normal 06-09-20 20 [facility] (84367) Comment: Performed By: #### GFR #### [facility] [address] [place], [place] [address] Calcium [Mass/Vol] 8.8 8.5-10.2 mg/dL Normal 06-09-2020 [facility] (94115) Comment: Performed By: #### GFR #### [facility] [address] [place], [place] [address] Chloride [Moles/Vol] 106 97-105 mmol/L High 0 [facility] (82921) Comment: Performed By: #### GFR #### [facility] [address] [place], [place] [address] CO2 Blood 24 22-30 mmol/L Normal 06-09-2020 [facility] (66808) Comment: Performed By: #### GFR #### [facility] [address] [place], [place] [address] Creatinine [Mass/Vol] 0.82 0.58-0.96 mg/dL Normal 06-09-20 20 [facility] (00 000) Comment: Performed By: #### GFR #### [facility] [address] [place], [place] [address] Glucose [Mass/Vol] 84 74-99 mg/dL Normal 06-09-2020 [facility] (48319) Comment: Result Comment: The [place] [employer] (ADA) provides guidance for cutoff values for fastin g glucose and random glucose. The ADA defines fasting as n o caloric intake for at least 8 hours.Fasting plasma glucose results between 100 to 125 mg/dL indicate increased risk for diabetes (prediabetes). Fasting plasma glucose resul ts greater than or equal to 126 mg/dL meet the criteria for diagnosis of diabetes. In the absence of unequivocal hyper glycemia, results should be confirmed by repeat testing. In a patient with classic symptoms of hyperglycemia or hyperglycemic crisis, random plasma glucose results great er than or equal to 200 mg/dL meet the criteria for diagno sis of diabetes. Reference: Standards of Medical Care in Diabetes 2016; [place] [employer]. Diabetes Care. 2016;39(Suppl 1). Performed By: #### GFR #### [facility] [address] [place], [place] [address] Potassium [Moles/Vol] 3.8 3.7-5.1 mmol/L Normal 06-09-20 [facility] (00 000) Comment: Performed By: #### GFR #### [address] [address] Sodium [Moles/Vol] 141 136-144 mmol/L Normal 06-09-2020 [facility] (41568) Comment: Performed By: #### GFR #### [address] [address] Urea nitrogen [Mass/Vol] 9 7-21 mg/dL Normal 06-09 [facility] (80365) Comment: Performed By: #### GFR #### [address] [address] protime on INR Coag (PPP) [Relative 1.07 0.90-1.30 {INR} Normal 06-08 [facility] time] System (00 000) Comment: Result Comment: Vitamin K An tagonist (VKA) Therapeutic Range: INR 2 to 3 (Target INR of 2.5) Note: For patients treated w ith VKA drugs, such as warfarin, the [place] [employer] 2012 Guideline recommends a therapeutic INR range of 2 to 3 (target INR of 2.5). This recommendation includes high -risk patients with antiphospholipid syndrome with previous arter ial or venous thromboembolism, current-generation mechanica l or bioprosthetic aortic heart valve replacement. Note: Patients with circuit breaker mechanic al aortic valve replacement and additional risk factors for thromboembolic events (atrial fibrillation, previous throm boembolism, LV dysfunction, hypercoagulable conditions) or an older generation mechanical AVR (i.e., ball in-Cage) or any mechanical MVR should have a INR therapeutic range of 2 .5 to 3.5 target INR of 3). Magdalene GH, et al. Chest 2012 ; 141:7S-47S Calderon FERNÁNDEZ et al. [facility] 20 17; 70: 252-289 Performed By: #### GFR #### [facility] [address] [place], [place] [address] PT Coag (PPP) [Time] 11.1 9.7-13.0 sec Normal 0 [facility] (40364) Comment: Performed By: #### GFR #### [address] [address] phosphorous blood o n 2020-06-08 Phosphate [Mass/Vol] 3.3 2.7-4.8 mg/dL Normal 0 [facility] (41582) Comment: Performed By: #### GFR #### [address] [address] nursing prog on NURSING PROG HNO ID: [id number] Normal 06-08-20 20 [facility] Author: Garo Jackson RN [facility] Service: ? ([id number]) Author Type: Registered Nurse Type: Nursing Progress Note Filed: 06/08/2020 10:56 AM Note Text: Nursing Progress Note Patient Name: Sally Mcgregor Patient Location: [id number] Spoke with Doctor Dick regarding IV contrast allergy and th e need for steroid prep. This note was completed by: Garo Jackson RN mri panc/james wo/w ivcon on 2020-06-08 MRI PANC/JAMES WO/W Final Report Normal 0 [facility] IVCON DATE OF EXAM: Jun 08 2020 6:[address] [place] [address] 0730 - MRI PANC/JAMES WO/W IVCON / ([id number]) PROCEDURE REASON: Liver lesion, >1cm, US indeterminate, norm al liver, no known malignancy Physician Interpretation MRI OF ABDOMEN WITH AND WITHOUT CONTRAST AND MRCP HISTORY: Liver lesion, >1cm, US indeterminate, normal liver, no known malignancy TECHNIQUE: Routine multiplanar, multi-sequence imaging witho ut and with IV contrast performed on a Siemens Magnetom Symphony 1.5 [place] MR system. IV contrast: 18 cc of Dotarem was administered intravenously .. COMPARISON: CT abdomen and pelvis dated 05/25/2020. RESULT: MRCP: The gallbladder is surgically absent. No biliary ducta l dilatation is identified. No filling defects are identified to suggest choledocholithiasis. The common duct appears normal. No panc reatic ductal dilatation is identified. Lower chest: Trace bilateral pleural effusions are noted. Liver: Multiple hepatic cysts are noted. The largest cyst is present in the posterior dome of the liver measuring 9.1 x 6.6 x 8.0 cm (approximately 237 cc) segment 7. The cyst abuts the intrahe patic portion of the IVC and appears to displace right hepatic vei n. No septations or nodularity is identified. No areas of abnormal enhancement are identified. Multiple smaller hepatic cysts are noted els ewhere. Evaluation of hepatic steatosis is limited due to patient mo tion. There is equivocal decreased signal intensity on the opposed phase imaging which may suggest mild fatty infiltration; however, the sequ ence is limited by patient motion. Spleen: Normal. Pancreas: Normal. Kidneys/urinary: Normal. Adrenals: Normal. GI tract: Negative. Lymph nodes: Negative. Vasculature: Within normal limits.. IMPRESSION: 1. Multiple simple hepatic cysts. Largest is present in the dome of the right lobe of liver posteriorly measuring 9.1 x 6.6 x 8.0 cm . 2. Normal MRCP. Parts Department Manager: PSCB Transcribe Date/Time: Jun 08 2020 7:48P Dictated by : ALICE ALCARAZ MD This examination was interpreted and the report reviewed and electronically signed by: ALICE ALCARAZ MD on Jun 08 2020 8:42PM EST mri 3d post processing on 2020-06-08 MRI 3D POST Final Report Normal 06-08-2020 Gabriela barboza General PROCESSING DATE OF EXAM: Jun 08 2020 6:31[facility] 0280 - MRI 3D POST PROCESSING / ([id number]) PROCEDURE REASON: Abd pain, chronic, intermittent Physician Interpretation MRI OF ABDOMEN WITH AND WITHOUT CONTRAST AND MRCP HISTORY: Liver lesion, >1cm, US indeterminate, normal liver, no known malignancy TECHNIQUE: Routine multiplanar, multi-sequence imaging witho ut and with IV contrast performed on a Siemens Magnetom Symphony 1.5 [place] MR system. IV contrast: 18 cc of Dotarem was administered intravenously .. COMPARISON: CT abdomen and pelvis dated 05/25/2020. RESULT: MRCP: The gallbladder is surgically absent. No biliary ducta l dilatation is identified. No filling defects are identified to suggest choledocholithiasis. The common duct appears normal. No panc reatic ductal dilatation is identified. Lower chest: Trace bilateral pleural effusions are noted. Liver: Multiple hepatic cysts are noted. The largest cyst is present in the posterior dome of the liver measuring 9.1 x 6.6 x 8.0 cm (approximately 237 cc) segment 7. The cyst abuts the intrahe patic portion of the IVC and appears to displace right hepatic vei n. No septations or nodularity is identified. No areas of abnormal enhancement are identified. Multiple smaller hepatic cysts are noted els ewhere. Evaluation of hepatic steatosis is limited due to patient mo tion. There is equivocal decreased signal intensity on the opposed phase imaging which may suggest mild fatty infiltration; however, the sequ ence is limited by patient motion. Spleen: Normal. Pancreas: Normal. Kidneys/urinary: Normal. Adrenals: Normal. GI tract: Negative. Lymph nodes: Negative. Vasculature: Within normal limits.. IMPRESSION: 1. Multiple simple hepatic cysts. Largest is present in the dome of the right lobe of liver posteriorly measuring 9.1 x 6.6 x 8.0 cm . 2. Normal MRCP. Parts Department Manager: PSCAudrey Transcribe Date/Time: Jun 08 2020 7:48P Dictated by : ALICE ALCARAZ MD This examination was interpreted and the report reviewed and electronically signed by: ALICE ALCARAZ MD on Jun 08 2020 8:42PM EST magnesium blood on 2020-06-08 Magnesium [Mass/Vol] 2.0 1.7-2.3 mg/dL Normal 0 [facility] ([id number]) Comment: Performed By: #### LIP #### [place] [id number] lipase blood on Lipase Blood 31 16-61 U/L Normal 06-08-2020 [facility] ([id number]) Comment: Performed By: #### GFR #### [facility] [address] [place], [place] [address] history physical on 2020-06-08 HISTORY HNO ID: [id number] Normal 06-08-2020 [facility] Author: Chris Kurtz [facility] Service: General Surgery Medical Author Type: Resident Center Type: [facility] ([id number]) Filed: 06/08/2020 7:24 AM Note Text: Attestation signed by Mala Almendarez at 06/08/2020 7:09 PM Attending Note I personally saw and examined the patient. I reviewed the resident's note. I agree with the resident's assessment and plan with the [facility] wing revisions and/or additions: Admit for symptomatic hepatic cyst. Plan for cyst fenestrati on on Thursday. Signature: Mala Almendarez MD Date: 06/08/2020 Time: 7:09 PM HISTORY AND PHYSICAL EXAMINATION SERVICE DATE: 06/08/2020 SERVICE TIME: 7:12 AM Subjective CHIEF COMPLAINT: Abdominal Pain HPI: 39 year old female presents as a direct admission to [facility] with abdominal pain and a known history of hepatic cysts with rec urrent pancreatitis. Her [facility] showing increasing size of her known hepatic cysts o bserved by Dr. Winn. Since her discharge on 05/29/20 she has been struggli ng on and off with pain. This past Thursday (06/04/20) her pain worsened and has been constant, associated with some nausea and vomiting with her last episode of emesis yesterday evening. She denied any fevers/chills, h as been unable to maintain an appetite, and was admitted for abdomin al pain and further workup of her symptoms. FUNCTIONAL STATUS: Independent PAST MEDICAL HISTORY Diagnosis Date - Allergic rhinitis, cause unspecified 05/17/2008spring and summer - Benign liver cyst 05/24/2010 CT scan at [facility] 11/2009 and 04/2010 showe 4 mm increase in size . No pain. No elevated LFTs on 03/11/2010. - Calculus of kidney 05/17/[address] Nicolas: Hospitalized age 20, and again later -- no procedures so far ([facility], most, 1995 [facility]) - Cancer (HCC) - Diverticulosis - Dysmenorrhea - Hemorrhoids - History of blood transfusion - Impaired fasting glucose 05/17/2008 Sugar 104 fasting, 04/21 - MIGRAINE 05/17/2008 Has used imitrex with good response; Keeps Vicodin on hand w hen needed; - Ovarian cyst 07/15/2012 - Pancreatitis - Smoker 05/17/2008 Started age 26, 1/2 a PPD PAST SURGICAL HISTORY Procedure Laterality Date - CHOLECYSTECTOMY HX - COLONOSCOPY 05/08/2020 poor prep, stool in entire colon, int hemorrhoids, diverticu losis - DANDC, DIAG AND/OR THERAPEUTIC - 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 FAMILY HISTORY Problem Relation Age of Onset - Diabetes Maternal Grandmother - Diabetes Maternal Grandfather - Lipids Maternal Grandfather - Stroke Maternal Grandfather - Coronary Artery Disease Maternal Grandfather - Cataract Maternal Grandfather - Pancreatic Cancer Maternal Grandfather - Diabetes Paternal Grandmother - Diabetes Paternal Grandfather - Coronary Artery Disease Paternal Grandfather - Thyroid Mother unsure of details - Arthritis Mother fibromyalgia - Blood Disease Mother blood clots, unsure of details (aorta?) - Breast Cancer Maternal Aunt - Lipids Maternal Uncle - Coronary Artery Disease Maternal Uncle - other (ovarian ca) Other maternal cousin - Colon Cancer No Family History Social History Tobacco Use - Smoking status: Former Smoker Packs/day: 0.50 Years: 3.00 Pack years: 1.50 Types: Cigarettes Quit date: 01/12/2017 Years since quittin.4 - Smokeless tobacco: Never Used - Tobacco comment: Approx. 3 cigarettes daily-1 pack every w [place] Substance Use Topics - Alcohol use: Yes Comment: Occasional - Drug use: Never - prazosin (MINIPRESS) 1 mg cap, Take 1 mg by mouth daily at bedtime., Disp: , Rfl: - hyoscyamine (LEVSIN) 0.125 mg tablet, Take 1 tablet by nick th every 6 hours as needed., Disp: 60 tablet, Rfl: 1 - sucralfate (CARAFATE) 1 gram tablet, Take 1 tablet by mout h four times daily., Disp: 30 tablet, Rfl: 0 - promethazine (PHENERGAN) 25 mg tablet, Take 1 tablet by mo uth every 8 hours as needed (for nausea). (Patient taking differently: T maninder 25 mg by mouth every 6 hours as needed (for nausea). ), Disp: 10 tablet, Rfl: 0 - pantoprazole DR (PROTONIX) 40 mg tablet, Take 1 tablet by mouth daily before breakfast. Take on empty stomach, 1/2 hr before meal. , Disp: 30 tablet, Rfl: 3 - diphenhydrAMINE (BENADRYL) 25 mg capsule, Take 50 mg by mo uth every 6 hours as needed., Disp: , Rfl: - sertraline (ZOLOFT) 100 mg tablet, Take 1 tablet by mouth once daily., Disp: , Rfl: - QUEtiapine (SEROQUEL) 100 mg tablet, Take 1 tablet by mout h once daily., Disp: , Rfl: - estradiol (ESTRACE) 2 mg tablet, Take 2 mg by mouth once d aily., Disp: , Rfl: ALLERGIES Allergen Reactions - Penicillins Rash - Cephalexin Itching - Chlorhexidine Rash Skin rash - Toradol [Ketorolac] Rash - Tramadol Rash - Asa [Salicylates] Other: See Comments ulcers - Contrast Dye [Iodin* Shortness of Breath - Ibuprofen GI Upset - Prednisone Other: See Comments makes agitated and mean COMPLETE REVIEW OF SYSTEMS: PAIN ASSESSMENT: CURRENTLY HAVING PAIN; see HPI GENERAL: No weight loss, malaise or fevers HEENT: Negative for frequent or significant headaches, No ch anges in hearing or vision, no nose bleeds or other nasal problems RESPIRATORY: Negative for cough, hemoptysis, wheezing, COPD, dyspnea or shortness of breath CARDIOVASCULAR: Negative for chest pain, leg swelling, hyper tension, CHF or palpitations GI: See HPI MUSCULOSKELETAL: Negative for joint pain or swelling, back p ain or muscle pain SKIN: Negative for lesions, rash, and itching PSYCH: Negative for sleep disturbance, mood disorder and rec ent psychosocial stressors HEMATOLOGY/LYMPHOLOGY: Negative for prolonged bleeding, brui sing easily or swollen nodes ENDOCRINE: Negative for cold or heat intolerance, polyuria, polydipsia and goiter NEURO: No history of headaches, syncope, paralysis, seizures or tremors Objective PHYSICAL EXAM: Physical Exam Performed: GENERAL: Alert, no distress, cooperative SKIN: Skin color, texture, turgor normal. No rashes or lesio ns. HEAD/SINUSES: No significant findings OROPHARYNX: Lips, mucosa, and tongue normal. Teeth and gums normal. Oropharynx normal. LUNGS: Lungs clear to auscultation, Good diaphragmatic excur matias CARDIAC: Normal S1 and S2; no rubs, murmurs, or gallops ABDOMEN: mildly distended, soft, RUQ TTP, old midline surgic al scar and laparoscopic scars visible. EXTREMITIES: Extremities normal, no deformities, edema, club konstantin or skin discoloration. Good capillary refill., No ulcers NEURO: Gait normal. Reflexes normal and symmetric. Sensation grossly intact, Cranial nerves II-XII intact PULSES: 2+ radial, 2+ carotid BP 109/71 Pulse 73 Temp (Src) 97.3 (Oral) Resp 18 Ht 5' 1 (1.55m) Wt 192 lb 4.8 oz (87.2kg) SpO2 96% LMP 08/10/2006 BM I 36.35 kg/(m2). O2 Therapy: Room Air DATA: Labs: No results for input(s): NA, K, CHLOR, CO2, BUN, CREAT, GLUC , ANION, CA, MG, P, ALB, AST, ALT, ALKPHOS, TBILI, DBILI, PHOSINTL, WBC, HB, HCT, PLT, LACT, INR, PH, PCO2, PO2, BE, HCO3 in the last 72 hours. Invalid input(s): [facility] Diagnostic tests reviewed for today's visit: Most recent labs and imaging results. Assessment/Plan Assessment and Plan: 39 year old female with a history of pancreatitis and hepati c cysts presents as a direct admisison with RUQ pain. Plan: - NPO/IVF - pain control - zofran prn nausea - MRCP - patient discussed severe anxiety with MRIs in the past - will give ativan prior to MRCP - will possibly add on for laparoscopic cyst fenestration to vs. Thursday - DVT ppx: LVX, SCDs - OOB, ambulate. SIGNATURE: Chris Kurtz DO PATIENT NAME: Sally james DATE: June 08, 2020 TIME: 7:12 AM Pager: see below Elective General Surgery Service Pager: For questions or concerns Thu-Thu 6a-5p please page [phone]. After 5pm and on Weekends and Holidays, please page [phone] if in ICU or [phone] if on RNF. hepatic function panel on 2020-06-08 Albumin [Mass/Vol] 4.7 3.9-4.9 g/dL Normal 06-08-2020 [facility] ([id number]) Comment: Performed By: #### GFR #### [address] [address] ALP [Catalytic activity/Vol] 94 34-123 U/L Normal 0 06-08-2020 [facility] (00 000) Comment: Performed By: #### GFR #### [address] [address] ALT [Catalytic activity/Vol] 17 7-38 U/L Normal 0 06-08-2020 [facility] (00 000) Comment: Performed By: #### GFR #### [address] [address] AST [Catalytic activity/Vol] see below 13-35 Normal 0 06-08-2020 [facility] (00 000) Comment: Result Comment: Unable to as say. Specimen Hemolyzed Performed By: #### GFR #### [address] [address] Bilirubin [Mass/Vol] 0.3 0.2-1.3 mg/dL Normal 0 [facility] ([address]16) Comment: Performed By: #### GFR #### [facility] [address] [place], [place] [address] Bilirubin [Mass/Vol] see below 0.0-0.2 Normal 0 [email or web address] (00 000) Comment: Result Comment: Unable to as say. Specimen Hemolyzed Performed By: #### GFR #### [facility] [address] [place], [place] [address] Protein [Mass/Vol] 7.8 6.3-8.0 g/dL Normal 06-08-2020 [facility] (22245) Comment: Performed By: #### GFR #### [facility] [address] [place], [place] [address] hemogram on 2020-05 Erythrocyte distribution 13.3 11.7-14.4 % Normal 06-08 [facility] width (RBC) [Ratio] System (13146) Comment: Performed By: #### LIP #### [facility] [address] [place], [place] [address] Hematocrit (Bld) [Volume 38.1 34.1-44.9 % Normal 06-08 [facility] fraction] System (00 000) Comment: Performed By: #### LIP #### [address] [address] Hemoglobin (Bld) 11.8 11.2-15.7 g/dL Normal 06-08-2020 [facility] [Mass/Vol] System (0 0000) Comment: Performed By: #### LIP #### [facility] [address] [place], [place] [address] MCH (RBC) [Entitic mass] 28.4 25.6-32.2 pg Normal 06-08 [facility] System (00 000) Comment: Performed By: #### LIP #### [address] [address] MCHC (RBC) [Mass/Vol] 31.0 31.6-34.8 % Low 06-08-20 20 [facility] ([id number]) Comment: Performed By: #### LIP #### [facility] [address] [place], [place] [address] MCV (RBC) [Entitic vol] 91.8 79.4-94.8 fl Normal 2019 [facility] (00 000) Comment: Performed By: #### LIP #### [facility] [address] [place] [id number] Platelet mean volume (Bld) 11.6 9.4-12.3 fl Normal [facility] [Entitic vol] System ([address]16) Comment: Performed By: #### LIP #### [facility] [address] [place] [id number] Platelets (Bld) [#/Vol] 230 182-369 thou/cmm Normal 2019 [facility] (00 000) Comment: Performed By: #### LIP #### [facility] [address] [place] [id number] RBC (Bld) [#/Vol] 4.15 3.93-5.22 mil/cmm Normal 06-08-2020 [facility] (00 000) Comment: Performed By: #### LIP #### [facility] [address] [place] [id number] RDW SD 44.9 36.4-46.3 fl Normal 06-08-2020 [facility] ([address]) Comment: Performed By: #### LIP #### [facility] [address] [place], [place] [address] WBC (Bld) [#/Vol] 7.30 3.98-10.04 thou/cmm Normal 06-08-2020 [facility] (00 000) Comment: Performed By: #### LIP #### [facility] [address] [place] [id number] case mgt init asses on 2020-06-08 CASE MGT INIT HNO ID: [id number] Normal 020 [facility] Author: Britni (Rn) [facility] Service: Care Management ([id number]) Author Type: Registered Nurse Type: Care Mgt Initial Assessment Filed: 06/08/2020 11:00 AM Note Text: CARE MANAGEMENT: ASSESSMENT AND DISCHARGE PLAN SERVICE DATE: June 08, 2020 SERVICE TIME: 10:50 AM PRIMARY CARE PHYSICIAN: Marcelino Mejia MD (Confirmed with patient) ADMISSION STATUS: Inpatient Needs Prior to Discharge: Pharmacy Bedside Delivery MEDICAL: [facility] MEDICAID Patient/Migrant Leader Stated Goals: To return home to life as it was Health Insurance: [facility] Issues Impacting Discharge Plan: Uncontrolled Uncontrolled: History of pancreatitis and hepatic cysts pres ents as a direct admisison with uncontrolled RUQ pain Last Discharge Date: 05/29/20 Is this Within the Past 30 days? Last discharge within 30 days: Yes Is this a planned readmission?: No Unplanned Reason: Pain Management Followed Up with Appointment Prior to Admission: Appointment completed Advance Directive: Current Advance Directive: None Web Solutions Architect Attempted to Assist with AD Completion: Yes Action: Patient Unwilling Health LiteracyHow often do you need to have someone help yo u when you read instructions, pamphlets, or other written material from your doctor or pharmacy? : 1 - Never How confident are you filling out medical forms by yourself? : 1 - Extremely If Patient scores > 3 on either question, the following inte rventions were put into place:: Patient did not score > 3 on either questio n. Baseline Mental Status Prior to this Illness what was the patient's Baseline Mental Status?: Alert AND Oriented Prior to this illness, has anyone described the patient havi ng any of the following behaviors?: Not Applicable Relationship of the informant to the patient:: Self Functional Status: Independent Does Patient Currently Receive Any Community Services or [facility] Care?: None Equipment Prior to Admission: None SOCIAL: Living Arrangements: Home Lives With: Other: See Comment(Significant other) Financial Resources: UnemployedPrimary Contact: Extended Dimple rgency Contact Information Primary Emergency Contact: BEBETO NEVILLE Mobile Relation: Mother Secondary Emergency Contact: Christopher Duenas Mobile Relation: Significant other Supportive Patient Contact:: Yes Contact Resources: Family;Significant Other Social Needs Food insecurity Worry: Never true Inability: Never true Resources Needed: No Social Needs Financial resource strain: Not hard at all Social Needs Transportation needs Medical: No Non-medical: No Caregiver AssessmentCaregiver is ready, willing and able to meet the patient's needs as recommended by the inter-professional tea m:: Yes Does the patient have an acute stroke diagnosis, or has the patient had a stroke during this admission?: No Patient's transition needs and plan for meeting these needs: Follow up care Patient's perception of need for this admission: Uncontrolle d pain Medication Adherance I am convinced of the importance of my prescription medicati on: 0 - Agree Completely I worry that my prescription medication will do more harm th an good to me : 0 - Disagree Completely I feel financially burdened by my [id number] expenses for my prescription medication:: 0 - Disagree Completely Risk Score: 0 Patient is categorized as: Low risk < 2 Are you interested in bedside delivery of your medications? Yes Is Patient Psychosocially Complex?: No ASSESSMENT AND PLAN: Medical Needs: Medical Needs: Two or more chronic diseases Psychosocial Needs: Psychosocial Needs: None FREEDOM OF CHOICE EXPLAINED: [place] of Choice Given: No Reason Not Given: No placements necessary POTENTIAL TRANSITION PLANS Home Chart reviewed. Spoke with patient at the bedside. Explained care management role. Patient from home with her significant other prior to admiss ion Functional Status: Independent/ Unemployed/ Drives Equipment Prior to Admission: None PCP: Marcelino Mejia MD Patient hopeful to return home once medically stable and daniele n controlled. Patient states her family and significant other are willing to assist as needed and will provide transportation. Will follow clinical course for DC planning needs. SIGNATURE: Britni Grimaldo RN PATIENT NAME: Sally james DATE: June 08, 2020 TIME: 10:50 AM PAGER/CONTACT #: [phone] basic metabolic panel on 2020-06-08 Anion gap [Moles/Vol] 11 9-18 mmol/L Normal 06-08-20 [facility] ([id number]) Comment: Performed By: #### LIP #### [address] [address] Calcium [Mass/Vol] 9.6 8.5-10.2 mg/dL Normal 06-08-2020 [facility] ([id number]) Comment: Performed By: #### LIP #### [address] [address] Chloride [Moles/Vol] 104 97-105 mmol/L Normal 0 [facility] (49327) Comment: Performed By: #### LIP #### [facility] [address] [place], [place] [address] CO2 Blood 25 22-30 mmol/L Normal 06-08-2020 [facility] ([address]) Comment: Performed By: #### LIP #### [facility] [address] [place], [place] [address] Creatinine [Mass/Vol] 0.80 0.58-0.96 mg/dL Normal 06-08-20 [facility] (00 000) Comment: Performed By: #### LIP #### [facility] [address] [place], [place] [address] Glucose [Mass/Vol] 91 74-99 mg/dL Normal 06-08-2020 [facility] (19060) Comment: Result Comment: The [place] Diabetes Association (ADA) provides guidance for cutoff values for fastin g glucose and random glucose. The ADA defines fasting as n o caloric intake for at least 8 hours.Fasting plasma glucose results between 100 to 125 mg/dL indicate increased risk for diabetes (prediabetes). Fasting plasma glucose resul ts greater than or equal to 126 mg/dL meet the criteria for diagnosis of diabetes. In the absence of unequivocal hyper glycemia, results should be confirmed by repeat testing. In a patient with classic symptoms of hyperglycemia or hyperglycemic crisis, random plasma glucose results great er than or equal to 200 mg/dL meet the criteria for diagno sis of diabetes. Reference: Standards of Medical Care in Diabetes 2016; [place] [employer] Association. Diabetes Care. 2016;39(Suppl 1). Performed By: #### LIP #### [facility] [address] [place], [place] [address] Potassium [Moles/Vol] 3.7 3.7-5.1 mmol/L Normal 06-08-20 20 [facility] (00 000) Comment: Performed By: #### LIP #### [facility] [address] [place], [place] [address] Sodium [Moles/Vol] 140 136-144 mmol/L Normal 06-08-2020 [facility] ([address]600) Comment: Performed By: #### LIP #### [facility] [address] [place], [place] [address] Urea nitrogen [Mass/Vol] 13 7-21 mg/dL Normal 06-08 [facility] (280[address]) Comment: Performed By: #### LIP #### [facility] [address] [place] [id number] allied health on 03-06-25 [facility] HNO ID: [id number] Normal 020 [facility] Author: [facility] ([id number]) Service: Radiology Author Type: Radiographic Technologist Type: Allied Health Filed: 06/08/2020 7:02 PM Note Text: Spoke to Garo (RN), in regards to her itching and scratching after the MRI was completed. Garo informed me that she had been itching an d scratching all day. Garo came down and gave the patient medication for the itching and took her back to the room. Kelley Noriega [facility] HNO ID: [id number] Normal 020 [facility] Author: eDepa Mcintosh) [facility] ([id number] Service: Radiology Author Type: Radiographic Technologist Type: Allied Health Filed: 06/08/2020 5:56 PM Note Text: Radiology Service Progress Note DATE OF SERVICE: June 08, 2020 TIME: 5:53 PM PATIENT IDENTITY VERIFICATION COMPLETED USING TWO (2) [address] RD IDENTIFIERS: Name and Date of confirmed by patient marina bally and Name and Date of confirmed by identification band. FALL SCREENING: Has the patient had 2 falls in the last year or 1 fall with injury or currently using an Ambulatory Assistive Devic e (Walker, Cane, Wheelchair, Crutches, etc.)? No PATIENT GENDER DATA: Female. status: : No status: NO. PATIENT RELEVANT IMPLANT DATA REVIEWED: Yes ALLERGIES: allergic to iodinated contrast pre EPIC note CONTRAST ALLERGY: not allergic to gadolinium MRI contrast pe r EPIC EXAM: MRI - CONTRAST TYPE: GROUP II PERIPHERAL IV DATA: Inpatient - refer to LDA documentation RADIOLOGY DEPARTMENT: MR; Exam(s) Completed: Body: Pancreas/ Biliary SIGNATURE: RT Masoud PATIENT NAME: Sally Mcgregor DATE: June 08, 2020 TIME: 5:53 PM [facility] HNO ID: [id number] Normal 020 [facility] Author: [facility] ([id number]) Service: Radiology Author Type: Radiographic Technologist Type: Allied Health Filed: 06/08/2020 4:21 PM Note Text: Called RN to get MRI order changed to w/wo per radiology pro tocol. Patient is not listed as allergy to gadolinium and creat is WNL. Mira l schedule STAT MRI as soon as order is changed activated ptt on 03-06-25 aPTT Coag (Bld) [Time] 30.5 23.0-32.4 sec Normal 020 [facility] (00 000) Comment: Result Comment: Unfractionat ed Heparin Therapeutic Ranges: Standard Heparin Nomogram: 53 to 78 seconds (anti-Xa le ramon of 0.3 to 0.7 U/mL) Low Dose/ACS Nomogram: 49 to 67 seconds (anti-Xa le ramon of 0.2 to 0.5 U/mL) Stroke Treatment Nomogram: 49 to 67 seconds (anti-Xa le ramon of 0.2 to 0.5 U/mL) Note: The APTT therapeutic r aggie has been determined for the current lot of laboratory AP TT reagent in use throughout the [facility]. Performed By: #### GFR #### [facility] [address] [place] [address] hosp on 2020-06-07 HOSP Patient:Sally Mcgregor Normal 05-16 [facility] MRN: General Height:5' 1(1.549 m) Medical Weight:197 lb 9.6 oz (89.631 kg) Center Outpatient Medications as of 06/11/20: ([id number]) prazosin (MINIPRESS) 1 mg cap hyoscyamine (LEVSIN) 0.125 mg tablet sucralfate (CARAFATE) 1 gram tablet promethazine (PHENERGAN) [address] (PROTONIX) 40 mg tablet diphenhydrAMINE (BENADRYL) 25 mg capsule estradiol (ESTRACE) 2 mg tablet sertraline (ZOLOFT) 100 mg tablet QUEtiapine (SEROQUEL) 100 mg tablet Admission/Clinic Administered Medications as of 06/11/20: acetaminophen 975 mg tab(s) (TYLENOL) diphenhydrAMINE 25 mg (BENADRYL) melatonin 6 mg tab(s) pantoprazole DR 40 mg tab(s) (PROTONIX) sertraline 100 mg tab(s) (ZOLOFT) sucralfate 1 g tab(s) (CARAFATE) enoxaparin 40 mg injection (LOVENOX) sodium chloride 0.9 % (flush) 3-5 mL (BD POSIFLUSH) ondansetron 4 mg tab(s) (ZOFRAN) ondansetron (PF) 4 mg injection (ZOFRAN) oxyCODONE IR 5-10 mg tab(s) (ROXICODONE) promethazine 25 mg tab(s) (PHENERGAN) HYDROmorphone 0.5-1 mg injection (DILAUDID) NaCl 0.9% iv infusion QUEtiapine 100 mg tab(s) (SEROquel) Problem List: Routine gynecological examination [Z01.419] Family history of diabetes mellitus [Z83.3] Calculus of kidney [N20.0] Allergic rhinitis, cause unspecified [J30.9] Migraine without aura [G43.009] Smoker [F17.200] Impaired fasting glucose [R73.01] Benign liver cyst [K76.89] Ovarian cyst [N83.209] Generalized anxiety disorder [F41.1] Reactive depression [F32.9] Adjustment insomnia [F51.02] Encounter for screening for cardiovascular disorders [Z13.6] Bilateral low back pain without sciatica [M54.5] Pain in left hip [M25.552] Greater trochanteric bursitis [M70.60] Hydronephrosis of left kidney [N13.30] Hydroureter on left [N13.4] Right facial numbness [R20.0] Right upper extremity numbness [R20.0] Numbness of right lower extremity [R20.0] Weakness of right upper extremity [R29.898] Weakness of right lower extremity [R29.898] Vision blurred [H53.8] Lumbar spine pain [M54.5] Cervical spine pain [M54.2] Abnormal MRI, lumbar spine [R93.7] Hydroureter, left [N13.4] Lung nodules [R91.8] Intractable nausea and vomiting [R11.2] Chronic pain syndrome [G89.4] Liver cyst [K76.89] Allergies: Penicillins Cephalexin Chlorhexidine Toradol [Ketorolac] Tramadol Asa [Salicylates] Contrast Dye [Iodine] Ibuprofen Prednisone Date Verified: 06/11/20 Lab Values Lab Value Units Date High Low POTA* 3.7 mmol/L 06/10/2020 5.1 3.7 DORITA* 35.0 % 06/10/2020 44.9 34.1 Progress Notes (): Chris Kurtz DO 06/08/2020 7:24 AM Attested Attestation signed by Mala Almendarez at 06/08/2020 7:09 PM Attending Note I personally saw and examined the patient. I reviewed the resident's note. I agree with the resident's assessment and [facility] revisions and/or additions: Admit for symptomatic hepatic cyst. Plan for cyst fenestrati on on Thursday. Signature: Mala Almendarez MD Date: 06/08/2020 Time: 7:09 PM HISTORY AND PHYSICAL EXAMINATION SERVICE DATE: 06/08/2020 SERVICE TIME: 7:12 AM Subjective CHIEF COMPLAINT: Abdominal Pain HPI: 39 year old female presents as a direct adm ission to [facility] with abdominal pain and a known history of hepatic cysts with recurrent pancreatitis. Her last admission was for pancreatit is, in which she had imaging showing increasing size of her known hepatic cysts observed by Dr. Winn. Since her discharge on 05/29/20 she has been struggling on and off with pain. This p ast Thursday (06/04/20) her pain worsened and has been constant, associated with some nausea and vomiting with her last episode of em esis yesterday evening. She denied any fevers/chills, has been unable to maintain an appetite , and was admitted for abdominal pain and further workup of her symptoms. FUNCTIONAL STATUS: Independent PAST MEDICAL HISTORY Diagnosis Date - Allergic rhinitis, cause unspecified 05/17/2008 Spring and summer - Benign liver cyst 05/24/2010 CT scan at [facility] 11/2009 and 04/2010 showe 4 mm increase in size . No pain. No elevated LFTs on 03/11/2010. - Calculus of kidney 05/17/[address] Nicolas: Hospitalized age 20, a nd again later -- no procedures so far ([facility], [facility], 1995 [facility]) - Cancer (HCC) - Diverticulosis - Dysmenorrhea - Hemorrhoids - History of blood transfusion - Impaired fasting glucose 05/17/2008 Sugar 104 fasting, 04/21 - MIGRAINE 05/17/2008 Has used imitrex with good response; Keeps Vicodin on hand w hen needed; - Ovarian cyst 07/15/2012 - Pancreatitis - Smoker 05/17/2008 Started age 26, 1/2 a PPD PAST SURGICAL HISTORY Procedure Laterality Date - CHOLECYSTECTOMY HX - COLONOSCOPY 05/08/2020 poor prep, stool in entire colon, int hemorrhoids, diverticu losis - DANDC, DIAG AND/OR THERAPEUTIC - 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 FAMILY HISTORY Problem Relation Age of Onset - Diabetes Maternal Grandmother - Diabetes Maternal Grandfather - Lipids Maternal Grandfather - Stroke Maternal Grandfather - Coronary Artery Disease Maternal Grandfather - Cataract Maternal Grandfather - Pancreatic Cancer Maternal Grandfather - Diabetes Paternal Grandmother - Diabetes Paternal Grandfather - Coronary Artery Disease Paternal Grandfather - Thyroid Mother unsure of details - Arthritis Mother fibromyalgia - Blood Disease Mother blood clots, unsure of details (aorta?) - Breast Cancer Maternal Aunt - Lipids Maternal Uncle - Coronary Artery Disease Maternal Uncle - other (ovarian ca) Other maternal cousin - Colon Cancer No Family History Social History Tobacco Use - Smoking status: Former Smoker Packs/day: 0.50 Years: 3.00 Pack years: 1.50 Types: Cigarettes Quit date: 01/12/2017 Years since quittin.4 - Smokeless tobacco: Never Used - Tobacco comment: Approx. 3 cigarettes daily-1 pack every w [place] Substance Use Topics - Alcohol use: Yes Comment: Occasional - Drug use: Never - prazosin (MINIPRESS) 1 mg cap, Take 1 mg by mouth daily at bedtime., Disp: , Rfl: - hyoscyamine (LEVSIN) 0.125 mg tablet, Take 1 tablet by mouth every 6 hours as needed., Disp: 60 tablet, Rfl: 1 - sucralfate (CARAFATE) 1 gram tablet, Take 1 tablet by mout h four times daily., Disp: 30 tablet, Rfl: 0 - promethazine (PHENERGAN) 25 mg tablet, Take 1 tablet by mouth every 8 hours as needed (for nausea). (Pat ient taking differently: Take 25 mg by mouth every 6 hours as needed (for nausea). ), Disp: 10 tablet, Rfl: 0 - pantoprazole DR (PROTONIX) 40 mg table t, Take 1 tablet by mouth daily before breakfast. Take on empty stomach, 1/2 hr before meal., Disp: 30 tablet, Rfl: 3 - diphenhydrAMINE (BENADRYL) 25 mg capsule, Take 50 mg by mouth every 6 hours as needed., Disp: , Rfl: - sertraline (ZOLOFT) 100 mg tablet, Davida e 1 tablet by mouth once daily., Disp: , Rfl: - QUEtiapine (SEROQUEL) 100 mg tablet, Take 1 tablet by mout h once daily., Disp: , Rfl: - estradiol (ESTRACE) 2 mg t ablet, Take 2 mg by mouth once daily., Disp: , Rfl: ALLERGIES Allergen Reactions - Penicillins Rash - Cephalexin Itching - Chlorhexidine Rash Skin rash - Toradol [Ketorolac] Rash - Tramadol Rash - Asa [Salicylates] Other: See Comments ulcers - Contrast Dye [Iodin* Shortness of Breath - Ibuprofen GI Upset - Prednisone Other: See Comments makes agitated and mean COMPLETE REVIEW OF SYSTEMS: PAIN ASSESSMENT: CURRENTLY HAVING PAIN; see HPI GENERAL: No weight loss, malaise or fevers HEENT: Negative for frequent or significant headaches, No changes in hearing or vision, no nose bleeds or other nasal problems RESPIRATORY: Negative for cough, hemoptysis, wheezing, COPD, dyspnea or shortness of breath CARDIOVASCULAR: Negative for chest pain, leg swelling, hyp ertension, CHF or palpitations GI: See HPI MUSCULOSKELETAL: Negative for joint pain or swelling, back pain or muscle pain SKIN: Negative for lesions, rash, and itching PSYCH: Negative for sleep disturbance, mood disorder a nd recent psychosocial stressors HEMATOLOGY/LYMPHOLOGY: Negative for prolonged bleeding, brui sing easily or swollen nodes ENDOCRINE: Negative for cold or heat intolerance, polyuria, polydipsia and goiter NEURO: No history of headaches, syncope, paralysis, seizures or tremors Objective PHYSICAL EXAM: Physical Exam Performed: GENERAL: Alert, no distress, cooperative SKIN: Skin color, texture, turgor normal. No rashes or lesio ns. HEAD/SINUSES: No significant findings OROPHARYNX: Lips, mucosa, and tongue nor mal. Teeth and gums normal. Oropharynx normal. LUNGS: Lungs clear to auscultation, Good diaphragmatic excur matias CARDIAC: Normal S1 and S2; no rubs, murmurs, or gallops ABDOMEN: mildly distended, soft, RUQ TTP, old midline surgic al scar and laparoscopic scars visible. EXTREMITIES: Extremities normal, no deformities, edema, club konstantin or skin discoloration. Good capillary refill., No ulcers NEURO: Gait normal. Reflexes normal and symmetric. Sen sation grossly intact, Cranial nerves II-XII intact PULSES: 2+ radial, 2+ carotid BP 109/71 Pulse 73 Temp (Src) 97.3 (Oral) Resp 18 Ht 5' 1 (1.55m) Wt 192 lb 4.8 oz (87.2kg) SpO2 96% LMP 08/10/2006 BMI 36. 35 kg/(m2). O2 Therapy: Room Air DATA: Labs: No results for input(s): NA, K, CHLOR, CO2, BUN, CREAT, GLUC, ANION, CA, MG, P, ALB, AST, ALT, ALKPHOS, TBILI, DBILI, PHOSINTL, WBC, HB, HCT, PLT, LACT, INR, PH, PCO2, PO2, BE, HCO3 in the last 72 hours. Invalid input(s): LISDBC Diagnostic tests reviewed for today's visit: Most recent labs and imaging results. Assessment/Plan Assessment and Plan: 39 year old female with a hi story of pancreatitis and hepatic cysts presents as a direct admisison with RUQ pain. Plan: - NPO/IVF - pain control - zofran prn nausea - MRCP - patient discussed severe anxiety with MRIs in the past - will give ativan prior to MRCP - will possibly add on for laparoscopic cyst fenestration to vs. Thursday - DVT ppx: LVX, SCDs - OOB, ambulate. SIGNATURE: Chris Kurtz DO PATIENT NAME: Sally james DATE: June 08, 2020 TIME: 7:12 AM Pager: see below Elective General Surgery Service Pager: For questions or concerns Thu-Thu 6a-5p please page [phone]. After 5pm and on Weekends an d Holidays, please page [phone] if in ICU or [phone] if on RNF. 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 Last discharge within 30 days: Yes Is this a planned readmission?: No Unplanned Reason: Pain Management Followed Up with Appointment Prior to Admission: Appointment completed Advance Directive: Current Advance Directive: None Web Solutions Architect Attempted to Assist with AD Completion: Yes Action: Patient Unwilling Health LiteracyHow often do you need to have someone help you when you read instructions, pamphlets, or other written material from your doctor or pharmacy? : 1 - Never How confident are you filling out medical forms by yoursel f?: 1 - Extremely If Patient scores > 3 on either question , the following interventions were put into place:: Patient did not score > 3 on either question. Baseline Mental Status Prior to this Illness what w as the patient's Baseline Mental Status?: Alert AND Oriented Prior to this illness, has anyone described the patient belia calvillo any of the following behaviors?: Not Applicable Relationship of the informant to the patient:: Self Functional Status: Independent Does Patient Currently Receive Any Community Services or [facility] Care?: None Equipment Prior to Admission: None SOCIAL: Living Arrangements: Home Lives With: Other: See Comment(Significant other) Financial Resources: UnemployedPrimary Contact: Extended Dimple rgency Contact Information Primary Emergency Contact: BEBETO NEVILLE Mobile Relation: Mother Secondary Emergency Contact: Henrique Christopher Mobile Relation: Significant other Supportive Patient Contact:: Yes Contact Resources: Family;Significant Other Social Needs Food insecurity Worry: Never true Inability: Never true Resources Needed: No Social Needs Financial resource strain: Not hard at all Social Needs Transportation needs Medical: No Non-medical: No Caregiver AssessmentCaregiver is ready, willing and able to meet the patient's needs as recommended by the inter-professional team:: Yes Does the patient have an acu te stroke diagnosis, or has the patient had a stroke during this admission?: No Patient's transition needs and plan for meeting these need s: Follow up care Patient's perception of need for this admission: Uncontrolle d pain Medication Adherance I am convinced of the importance of my prescription medicati on: 0 - Agree Completely I worry that my prescription medication will do more harm than good to me : 0 - Disagree Completely I feel financially burdened by my xmk-wi-oxroeo expens es for my prescription medication:: 0 - Disagree Completely Risk Score: 0 Patient is categorized as: Low risk < 2 Are you interested in bedside delivery of your medications? Yes Is Patient Psychosocially Complex?: No ASSESSMENT AND PLAN: Medical Needs: Medical Needs: Two or more chronic diseases Psychosocial Needs: Psychosocial Needs: None FREEDOM OF CHOICE EXPLAINED: [place] of Choice Given: No Reason Not Given: No placements necessary POTENTIAL TRANSITION PLANS Home Chart reviewed. Spoke with patient at the bedside. Exp lained care management role. Patient from home with her significant other prior to admiss ion Functional Status: Independent/ Unemployed/ Drives Equipment Prior to Admission: None PCP: Marcelino Mejia MD Patient hopeful to return home once medically stable and daniele n controlled. Patient states her family an d significant other are willing to assist as needed and will provide transportation. Will follow clinical course for DC planning needs. SIGNATURE: Britni Grimaldo RN PATIENT NAME: Sally james DATE: June 08, 2020 TIME: 10:50 AM PAGER/CONTACT #: [phone] Jasmine Chavez, RN 06/08/2020 10:56 AM Signed Nursing Progress Note Patient Name: Sally Mcgregor Patient Location: [place] [address] [address] Spoke with Doctor Jennings regarding IV con trast allergy and the need for steroid prep. This note was completed by: VIN Chavez RT, Tech 06/08/2020 4:21 PM Signed Called RN to get MRI order changed to w/wo per r adiology protocol. Patient is not listed as allergy to krissy olinium and creat is WNL. Will schedule STAT MRI as soon as order is changed RT Masoud, [employer] 06/08/2020 5:56 PM Signed Radiology Service Progress Note DATE OF SERVICE: June 08, 2020 TIME: 5:53 PM PATIENT IDENTITY VERIFICATION COMPLETED USING TWO (2) HIRA DARD IDENTIFIERS: Name and Date of confi rmed by patient verbally and Name and Date of confirmed by identification band. FALL SCREENING: Has the patient had 2 falls in the last ye ar or 1 fall with injury or currently using an Ambulatory Assistive Device (Wa lker, Cane, Wheelchair, Crutches, etc.)? No PATIENT GENDER DATA: Female. status: : No status: NO. PATIENT RELEVANT IMPLANT DATA REVIEWED: Yes ALLERGIES: allergic to iodinated contrast pre EPIC note CONTRAST ALLERGY: not allergic to gadolinium MRI contrast pe r EPIC EXAM: MRI - CONTRAST TYPE: GROUP II PERIPHERAL IV DATA: Inpatient - refer to LDA documentation RADIOLOGY DEPARTMENT: MR; Exam(s) Completed: Body: Pancreas/ Biliary SIGNATURE: RT Masoud PATIENT NAME: Sally Mcgregor DATE: June 08, 2020 TIME: 5:53 PM RT Masoud, Tech 06/08/2020 7:02 PM Signed Spoke to Garo NARANJO), in regards to her it rachel and scratching after the MRI was completed. Garo informed me that she had been it rachel and scratching all day. Garo came down and gave the patient medication for the itching and took her back to the room. Kelley Jennings, 06/09/2020 7:14 AM Attested Attestation signed by Johnnie Reynoso at 06/09/2020 1:29 P M I saw and evaluated the patient. Discussed with the reside nt and agree with resident's findings and plan as documented in the resident's note. Patient is primarily just complaining of pain. Abdomen is soft with minimal tenderness. Tolerating diet. For surgery on Thursday. Elective General Surgery Progress Note SERVICE DATE: 06/09/2020 Elective General Surgery Service Pager: For questions or concerns Thu-Thu 6a-5p please page [phone]. After 5pm and on Weekends and Holidays, please page [phone]. SUBJECTIVE: NAEON. Afebrile. Patient resting in bed this morning. Pain well controlled. Nausea controlled with medication. Passing flatus and having loose bowel movements. Tolerating po intake. Tolerating diet DIET REGULAR DIET NPO Nausea Yes Emesis No Flatus Yes Bowel movement Yes Pain Controlled Yes Ambulating Yes OBJECTIVE: Vitals: Temp (24hrs), Av.4 ?C (97.6 ?F), Min:36.2 ?C (97.2 ?F), Max:36.9 ?C (98.4 ?F) BP 93/59 Pulse 77 Temp 36.3 ?C (97.3 ?F) (Oral) Resp 18 Ht 154.9 cm (5' 1) Wt 87.2 kg (192 lb 4.8 oz) LMP 08/10/2006 SpO2 97% BMI 36.33 kg/m? O2 Therapy: Room Air IANDO: Date 06/08/20699 - 06/09/2065806/09/20699 - 06/10/20 0659 Shift 0559-2061 2935-4834 23 00-0659 24 Hour Total 7498-4127 6158-7159 4184-4878 24 Hour Total INTAKE Shift Total OUTPUT Urine Urine Not Saved. 1 x 1 x 2 x # of BMs Number of BMs 1 x 1 x 2 x Shift Total Weight (kg) 87.2 87.2 87.2 87.2 87.2 87.2 87.2 87.2 MEDICATIONS Current Facility-Administered Medications Medication Dose Route Frequency - pantoprazole DR 40 mg tab(s) (PROTONIX) 40 mg ORAL BEFOR E BREAKFAST DAILY - sertraline 100 mg tab(s) (ZOLOFT) 100 mg ORAL DAILY - sucralfate 1 g tab(s) (CARAFATE) 1 g ORAL QID - enoxaparin 40 mg injection (LOVENOX) 40 mg SUBCUTANEOUS DA FEDERICO - sodium chloride 0.9 % (flu sh) 3-5 mL (BD POSIFLUSH) 3-5 mL INTRAVENOUS q 12 H - ondansetron 4 mg tab(s) (ZOFRAN) 4 mg ORAL q 6 H PRN Or - ondansetron (PF) 4 mg injection (ZOFRAN) 4 mg INTRAVENOUS q 6 H PRN - acetaminophen 975 mg tab(s) (TYLENOL) 975 mg ORAL q 6 H MT N - oxyCODONE IR 5-10 mg tab(s) (ROXICODONE) 5-10 mg ORAL q 4 H PRN - promethazine 25 mg tab(s) (PHENERGAN) 25 mg ORAL q 8 H PRN - HYDROmorphone 0.5-1 mg injection (DILAUDID) 0.5-1 mg INTRAVENOUS q 3 H PRN - diphenhydrAMINE 25 mg (BENADRYL) 25 mg ORAL q 6 H PRN - iv contrast (radiology procedure) INTRAVENOUS DIRECTED PRN - QUEtiapine 100 mg tab(s) (SEROquel) 100 mg ORAL AT BEDTIME Labs: Recent Labs 06/09/208 06/08/20 0630 NA 141 140 K 3.8 3.7 CHLOR 106* 104 CO2 24 25 BUN 9 13 CREAT 0.82 0.80 GLUC 84 91 ANION 11 11 CA 8.8 9.6 MG -- 2.0 P -- 3.3 ALB -- 4.7 AST -- see below ALT -- 17 ALKPHOS -- 94 TBILI -- 0.3 WBC 6.47 7.30 HB 10.6* 11.8 HCT 33.7* 38.1 PLT 199 230 INR -- 1.07 Exam: GENERAL: No distress, Alert NEURO: AANDOx3, CN II-XII grossly intact HEENT: normocephalic, atraumatic LUNGS: Unlabored breathing room air CARDIAC: Regular rate and rhythm as above ABDOMEN: Soft, TTP RUQ, non-distended EXTREMITIES: CALLAHAN, No deformities, No edema SKIN: Skin color, texture, turgor normal, No rashes or lesio ns ASSESSMENT AND PLAN: Active Hospital Problems Diagnosis Date Noted - Liver cyst 06/08/2020 Assessment: 39 year old female with a history of pancreatitis and hepatic cysts presents admitted for RUQ pain and found to have multiple simple hepatic cysts on MRI. Hospital Course: 06/08: MRI Panc/James: multiple simple hepatic cysts, MRCP: nor mal Plan: - OR on Thursday with Dr. Almendarez for laparoscopic hepatic cyst re moval - Regular diet until Thursday @ [place] - pain control: PRN tylenol, oxycodone, and dilaudid - nausea control: PRN zofran - DVT ppx: SCDs, lvx - home anxiety and GERD meds - home benadryl for itchiness - encourage ambulation Follow up needs: OR on Thursday SIGNATURE: Kimmie Jennings DO PATIENT NAME: Sally Mcgregor DATE: June 09, 2020 TIME: 7:00 AM Pager: see below [facility] General Surgery Service Pager: For questions or concerns Thu-Thu 6a-5p please page [phone]. After 5pm and on Weekends an d Holidays, please page [phone] if in ICU or [phone] if on RNF. Mer Bejarano, RN, RN 06/10/2020 1:28 AM Signed Patient refused Oxycodone an d only wanted to take Dilaudid. She stated that oxy is not helping her. At 11pm, she agreed to take oxycodone an d tylenol as Dilaudid is not yet due. She was informed that oxy is the fi rst line prior Dilaudid, and Dilaudid is only for breakthrough pain. Melyssa ent got upset and stated that she wanted Dilaudid every 3 hours. Kimmie Jennings, DO 06/10/2020 7:29 AM Attested Attestation signed by Johnnie Reynoso at 06/10/2020 2:40 P M I saw and evaluated the patient. Discussed with the reside nt and agree with resident's findings and plan as documented in the resident's note. For surgery tomorrow. Still complaining of pain. [facility] General Surgery Progress Note SERVICE DATE: 06/10/2020 Elective General Surgery Service Pager: For questions or concerns Mon-Fri 6a-5p please page [phone]. After 5pm and on Weekends and Holidays, please page [phone]. SUBJECTIVE: NAEON. Afebrile. Patient resting in bed this morning. Pain well controlled but states that only dilaudid is working well for pain. Nausea c ontrolled with medication. Continues to have pruritis which is somewh at normal for her, but thinks it may be worse from the hospital detergent/blankets. No discreet rashes. Benadryl is controlling pruritis. Passing flatus and having loose bowel movements. Tolerating po intake. Tolerating diet DIET REGULAR DIET NPO Nausea Yes Emesis No Flatus Yes Bowel movement Yes Pain Controlled Yes Ambulating Yes OBJECTIVE: Vitals: Temp (24hrs), Av.3 ?C (97.4 ?F), Min:36.2 ?C (97.2 ?F), Max:36.5 ?C (97.7 ?F) BP 114/52 Pulse 74 Temp 36.5 ?C (97.7 ?F) (Oral) Resp 18 Ht 154.9 cm (5' 1) Wt 88 kg (194 lb) LMP 08/10/2006 SpO2 98% BM I 36.66 kg/m? O2 Therapy: Room Air IANDO: Date 06/09/20 07 - 06/10/20 0606/10/20699 - 06/11/20 0659 Shift 2934-9077 2696-7420 23 00-0659 24 Hour Total 8132-3153 5238-1868 3043-1191 24 Hour Total INTAKE PO 932 906 4641 PO 042 139 1184 Shift Total 282 994 7938 OUTPUT Urine Urine Not Saved. 2 x 1 x 3 x 6 x Shift Total Weight (kg) 87.2 87.2 88 88 88 88 88 88 MEDICATIONS Current Facility-Administered Medications Medication Dose Route Frequency - acetaminophen 975 mg tab(s) (TYLENOL) 975 mg ORAL q 6 H - melatonin 6 mg tab(s) 6 mg ORAL AT BEDTIME - pantoprazole DR 40 mg tab(s) (PROTONIX) 40 mg ORAL BEFOR E BREAKFAST DAILY - sertraline 100 mg tab(s) (ZOLOFT) 100 mg ORAL DAILY - sucralfate 1 g tab(s) (CARAFATE) 1 g ORAL QID - enoxaparin 40 mg injection (LOVENOX) 40 mg SUBCUTANEOUS DA FEDERICO - sodium chloride 0.9 % (flu sh) 3-5 mL (BD POSIFLUSH) 3-5 mL INTRAVENOUS q 12 H - ondansetron 4 mg tab(s) (ZOFRAN) 4 mg ORAL q 6 H PRN Or - ondansetron (PF) 4 mg injection (ZOFRAN) 4 mg INTRAVENOUS q 6 H PRN - oxyCODONE IR 5-10 mg tab(s) (ROXICODONE) 5-10 mg ORAL q 4 H PRN - promethazine 25 mg tab(s) (PHENERGAN) 25 mg ORAL q 8 H PRN - HYDROmorphone 0.5-1 mg injection (DILAUDID) 0.5-1 mg INTRAVENOUS q 3 H PRN - diphenhydrAMINE 25 mg (BENADRYL) 25 mg ORAL q 6 H PRN - QUEtiapine 100 mg tab(s) (SEROquel) 100 mg ORAL AT BEDTIME Labs: Recent Labs 06/09/20 0448 06/08/20 0630 NA 141 140 K 3.8 3.7 CHLOR 106* 104 CO2 24 25 BUN 9 13 CREAT 0.82 0.80 GLUC 84 91 ANION 11 11 CA 8.8 9.6 MG -- 2.0 P -- 3.3 ALB -- 4.7 AST -- see below ALT -- 17 ALKPHOS -- 94 TBILI -- 0.3 WBC 6.47 7.30 HB 10.6* 11.8 HCT 33.7* 38.1 PLT 199 230 INR -- 1.07 Exam: GENERAL: No distress, Alert NEURO: AANDOx3, CN II-XII grossly intact HEENT: normocephalic, atraumatic LUNGS: Unlabored breathing room air CARDIAC: Regular rate and rhythm as above ABDOMEN: Soft, TTP RUQ, non-distended EXTREMITIES: CALLAHAN, No deformities, No edema SKIN: Skin color, texture, turgor normal, No jasmyne hes. Mild excoriation on left medial calf ASSESSMENT AND PLAN: Active Hospital Problems Diagnosis Date Noted - Liver cyst 06/08/2020 Assessment: 39 year old female with a history of pancreatitis and hepatic cysts presents admitted for RUQ pain and found to have multiple simple hepatic cysts on MRI. Hospital Course: 06/08: MRI Panc/James: multiple simple hepatic cysts, MRCP: nor mal Plan: - OR on Thursday with Dr. Almendarez for laparoscopic hepatic cyst re moval - Regular diet until Thursday @ [place] - pain control: PRN tylenol, oxycodone, and dilaudid - nausea control: PRN zofran - DVT ppx: SCDs, lvx - home anxiety and GERD meds - home seroquel - QTc on this admission is 462 - home benadryl for itchiness - encourage ambulation Follow up needs: OR on Thursday SIGNATURE: Kimmie Jennings DO PATIENT NAME: Sally Mcgregor DATE: June 10, 2020 TIME: 7:29 AM Pager: see below [facility] General Surgery Service Pager: For questions or concerns Thu-Thu 6a- please page [phone]. After 5pm and on Weekends an d Holidays, please page [phone] if in ICU or [phone] if on RNF. Mer Bejarano, RN, RN 06/10/2020 7:50 AM Signed ICU nurse was called to help with the bl ood draw. However, the patient refused blood draw on the site with good veins p er ultrasound. She is insisting on the site without veins. Patient agitated and insisted that she does not want to get stuck anymore. Surgery resident Kimmie was notified. Chaplain Suarez Chaplain 06/10/2020 7:39 PM Signed SPIRITUALCARE Spiritual Care Visit- Brief Note Name: Sally Mcgregor Date: June 10, 2020 Notes: Pre-surgery Patient Nothing needed tonight. Room Service Clerk Signature: Chaplain Erick To contact the Spiritual Care Department: Please call [phone] or Page the On-Call Room Service Clerk at pag er [phone] Thank you for the opportunity to be of service. This is an electronically created document. IF PRINTED, PLEASE DO NOT REMOVE FROM THE CHART OR MODIFY MT INTED COPY. Kimmie Jennings DO 06/11/2020 7:03 AM Cosign Needed Elect[facility] General Surgery Progress Note SERVICE DATE: 06/11/2020 Elective General Surgery Service Pager: For questions or concerns Thu-Thu 6a- please page [phone]. After 5pm and on Weekends and Holidays, please page [phone]. SUBJECTIVE: NAEON. Afebrile. Patient resting in bed this morning. Pain well controlled but again states that only dilau did is working well for pain. Nausea controlled with medication. Patient is upset that her surgery is scheduled late because her mouth is very dry and bothersome this morning. Tolerating diet DIET NPO Nausea Yes Emesis No Flatus Yes Bowel movement Yes Pain Controlled Yes Ambulating Yes OBJECTIVE: Vitals: Temp (24hrs), Av.3 ?C (97.4 ?F), Min:36.2 ?C (97.2 ?F), Max:36.5 ?C (97.7 ?F) BP 129/100 Pulse 87 Temp 36.2 ?C (97.2 ?F) (Oral) Resp 18 Ht 154.9 cm (5' 1) Wt 89.6 kg (197 lb 9.6 oz) LMP 08/10/2006 S pO2 95% BMI 37.34 kg/m? O2 Therapy: Room Air IANDO: Date 06/10/20699 - 06/11/2065806/11/20699 - 06/12/20 0659 Shift 2072-8173 7191-5030 23 00-0659 24 Hour Total 6467-3279 6296-5222 5992-0999 24 Hour Total INTAKE PO 600 600 PO 600 600 Shift Total 600 600 OUTPUT Urine Urine Not Saved. 2 x 2 x 4 x Shift Total Weight (kg) 88 88 89.6 89.6 89.6 89.6 89.6 89.6 MEDICATIONS Current Facility-Administered Medications Medication Dose Route Frequency - acetaminophen 975 mg tab(s) (TYLENOL) 975 mg ORAL q 6 H - diphenhydrAMINE 25 mg (BENADRYL) 25 mg ORAL q 4 H PRN - melatonin 6 mg tab(s) 6 mg ORAL AT BEDTIME - pantoprazole DR 40 mg tab(s) (PROTONIX) 40 mg ORAL BEFOR E BREAKFAST DAILY - sertraline 100 mg tab(s) (ZOLOFT) 100 mg ORAL DAILY - sucralfate 1 g tab(s) (CARAFATE) 1 g ORAL QID - enoxaparin 40 mg injection (LOVENOX) 40 mg SUBCUTANEOUS DA FEDERICO - sodium chloride 0.9 % (flu sh) 3-5 mL (BD POSIFLUSH) 3-5 mL INTRAVENOUS q 12 H - ondansetron 4 mg tab(s) (ZOFRAN) 4 mg ORAL q 6 H PRN Or - ondansetron (PF) 4 mg injection (ZOFRAN) 4 mg INTRAVENOUS q 6 H PRN - oxyCODONE IR 5-10 mg tab(s) (ROXICODONE) 5-10 mg ORAL q 4 H PRN - promethazine 25 mg tab(s) (PHENERGAN) 25 mg ORAL q 8 H PRN - HYDROmorphone 0.5-1 mg injection (DILAUDID) 0.5-1 mg INTRAVENOUS q 3 H PRN - NaCl 0.9% iv infusion 125 mL/hr INTRAVENOUS CONTINUOUS - QUEtiapine 100 mg tab(s) (SEROquel) 100 mg ORAL AT BEDTIME Labs: Recent Labs 06/10/20 2335 06/09/20 0448 NA 139 141 K 3.7 3.8 CHLOR 102 106* CO2 27 24 BUN 8 9 CREAT 0.90 0.82 GLUC 105* 84 ANION 10 11 CA 9.2 8.8 MG 1.8 -- P 4.2 -- WBC 6.54 6.47 HB 11.4 10.6* HCT 35.0 33.7* PLT 229 199 Exam: GENERAL: No distress, Alert NEURO: AANDOx3, CN II-XII grossly intact HEENT: normocephalic, atraumatic LUNGS: Unlabored breathing room air CARDIAC: Regular rate and rhythm as above ABDOMEN: Soft, TTP RUQ, non-distended EXTREMITIES: CALLAHAN, No deformities, No edema SKIN: Skin color, texture, turgor normal, No jasmyne hes. Mild excoriation on left medial calf ASSESSMENT AND PLAN: Active Hospital Problems Diagnosis Date Noted - Liver cyst 06/08/2020 Assessment: 39 year old female with a history of pancreatitis and hepatic cysts presents admitted for RUQ pain and found to have multiple simple hepatic cysts on MRI. Hospital Course: 06/08: MRI Panc/James: multiple simple hepatic cysts, MRCP: nor mal Plan: - OR today with Dr. Almendarez for laparoscopic hepatic cyst remova l - NPO until after surgery - pain control: PRN tylenol, oxycodone, and dilaudid - nausea control: PRN zofran - DVT ppx: SCDs, lvx - home anxiety and GERD meds - home seroquel - QTc on this admission is 462 - home benadryl for itchiness - encourage ambulation Follow up needs: OR on Thursday SIGNATURE: Kimmie Jennings DO PATIENT NAME: Sally Mcgregor 8DATE: June 11, 2020 TIME: 7:02 AM Pager: see below Elective General Surgery Service Pager: For questions or concerns Thu-Thu 6a-5p please page [phone]. After 5pm and on Weekends an d Holidays, please page [phone] if in ICU or [phone] if on RNF. Britni Grimaldo RN, RN 06/11/2020 9:12 AM Signed CARE MANAGEMENT PROGRESS NOTE SERVICE DATE: 06/11/2020 SERVICE TIME: 9:10 AM LOS: 3 days Needs Prior to Discharge: To Be Determined;Pharmacy Bedside Delivery Chart reviewed. Patient inde pendent at home with her significant other prior to admission. Patient hopeful t o return home once medically stable. Patient states her family and significant other are willing to assist as ne eded and will provide transportation. OR today for laparoscopic hepa tic cyst removal. Will continue to follow clinical course for DC planning needs. SIGNATURE: Britni Grmialdo RN PATIENT NAME: Sally james DATE: June 11, 2020 TIME: 9:10 AM PAGER/CONTACT #: [phone] Ruben Thompson MD 06/11/2020 9:51 AM Signed ANESTHESIOLOGY DAY OF SURGERY NOTE SERVICE DATE: 06/11/2020 SERVICE TIME: 9:49 AM : 1980 Procedure(s) (LRB): LAPAROSCOPIC RESECTION LIVER, possible open, possible blood products (N/A) Surgeon(s): Mala Almendarez Estimated body mass index is 37.34 kg/m? as calculated from the following: Height as of this encounter: 154.9 cm (5' 1). Weight as of this encounter: 89.6 kg (197 lb 9.6 oz). Most recent hematocrit and potassium results: Hematocrit 35.0 06/10/2020 Potassium 3.7 06/10/2020 ANES DOS/PREOP NOTE: Vitals: 06/10/20 2244 06/11/20 0404 06/11/20 0705 06/11/20 0934 BP: 116/54 129/100 104/81 134/84 Pulse: 83 87 82 Resp: 18 18 18 16 Temp: 36.3 ?C (97.3 ?F) 36.2 ?C (97.2 ?F) 36.4 ? C (97.5 ?F) 36.3 ?C (97.3 ?F) TempSrc: Oral Oral Oral Temporal SpO2: 94% 95% 97% 98% Weight: 89.6 kg (197 lb 9.6 oz) Height: ACTIVE PROBLEM LIST Routine gynecological examination Family history of diabetes mellitus Calculus of Kidney Allergic rhinitis, cause unspecified Migraine Without Aura Smoker Impaired Fasting Glucose Benign Liver Cyst Ovarian Cyst Generalized Anxiety Disorder Reactive Depression Adjustment Insomnia Encounter for Screening for Cardiovascular Disorders Bilateral Low Back Pain Without Sciatica Pain in Left Hip Greater Trochanteric Bursitis Hydronephrosis of Left Kidney Hydroureter On Left Right Facial Numbness Right Upper Extremity Numbness Numbness of Right Lower Extremity Weakness of Right Upper Extremity Weakness of Right Lower Extremity Vision Blurred Lumbar Spine Pain Cervical Spine Pain Abnormal Mri, Lumbar Spine Hydroureter, Left Lung Nodules Intractable Nausea and Vomiting Chronic Pain Syndrome Liver Cyst PAST MEDICAL HISTORY Diagnosis Date - Allergic rhinitis, cause unspecified 05/17/2008 Spring and summer - Benign liver cyst 05/24/2010 CT scan at [facility] 11/2009 and 04/2010 showe 4 mm increase in size . No pain. No elevated LFTs on 03/11/2010. - Calculus of kidney 05/17/[address] Nicolas: Hospitalized age 20, a nd again later -- no procedures so far [facility]) - Cancer (HCC) - Diverticulosis - Dysmenorrhea - Hemorrhoids - History of blood transfusion - Impaired fasting glucose 05/17/2008 Sugar 104 fasting, 04/21 - MIGRAINE 05/17/2008 Has used imitrex with good response; Keeps Vicodin on hand w hen needed; - Ovarian cyst 07/15/2012 - Pancreatitis - Smoker 05/17/2008 Started age 26, 1/2 a PPD PAST SURGICAL HISTORY Procedure Laterality Date - CHOLECYSTECTOMY HX - COLONOSCOPY 05/08/2020 poor prep, stool in entire colon, int hemorrhoids, diverticu losis - DANDC, DIAG AND/OR THERAPEUTIC - 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 FAMILY HISTORY Problem Relation Age of Onset - Diabetes Maternal Grandmother - Diabetes Maternal Grandfather - Lipids Maternal Grandfather - Stroke Maternal Grandfather - Coronary Artery Disease Maternal Grandfather - Cataract Maternal Grandfather - Pancreatic Cancer Maternal Grandfather - Diabetes Paternal Grandmother - Diabetes Paternal Grandfather - Coronary Artery Disease Paternal Grandfather - Thyroid Mother unsure of details - Arthritis Mother fibromyalgia - Blood Disease Mother blood clots, unsure of details (aorta?) - Breast Cancer Maternal Aunt - Lipids Maternal Uncle - Coronary Artery Disease Maternal Uncle - other (ovarian ca) Other maternal cousin - Colon Cancer No Family History Social History: Social History Tobacco Use - Smoking status: Former Smoker Packs/day: 0.50 Years: 3.00 Pack years: 1.50 Types: Cigarettes Quit date: 01/12/2017 Years since quittin.4 - Smokeless tobacco: Never Used - Tobacco comment: Approx. 3 cigarettes daily-1 pack every w [place] Substance Use Topics - Alcohol use: Yes Comment: Occasional - Drug use: Never No current facility-administered medications on file prior t o encounter. Current Outpatient Medications on File Prior to Encounter Medication Sig - prazosin (MINIPRESS) 1 mg cap Take 1 mg by mouth daily at bedtime. - hyoscyamine (LEVSIN) 0.125 mg tablet T maninder 1 tablet by mouth every 6 hours as needed. - sucralfate (CARAFATE) 1 gram tablet Ta ke 1 tablet by mouth four times daily. - promethazine (PHENERGAN) 2 5 mg tablet Take 1 tablet by mouth every 8 hours as needed (for nausea). (Patient taking differently : Take 25 mg by mouth every 6 hours as needed (for nausea). ) - pantoprazole DR (PROTONIX) 40 mg tablet Take 1 tablet by mouth daily before breakfast. Take on empty stomach, 1/2 hr before meal. - diphenhydrAMINE (BENADRYL) 25 mg capsule Take 50 mg by mouth every 6 hours as needed. - sertraline (ZOLOFT) 100 mg tablet Take 1 tablet by mouth o nce daily. - QUEtiapine (SEROQUEL) 100 mg tablet Take 1 tablet by mouth once daily. - estradiol (ESTRACE) 2 mg tablet Take 2 mg by mouth once da federico. Current Facility-Administered Medications Medication Dose Route Frequency Provider Last Rate Last Dose - [MAR Hold due to Transfer] acetaminoph en 975 mg tab(s) (TYLENOL) 975 mg ORAL q 6 H Kimmie (Res) Dick 975 mg at 06/10/20 2344 - [MAR Hold due to Transfer] diphenhydrA MINE 25 mg (BENADRYL) 25 mg ORAL q 4 H PRN Kimmie (Res) Dick 25 mg at 06/11/20 075 - [MAR Hold due to Transfer] melatonin 6 mg tab(s) 6 mg ORAL AT BEDTIME Zacharia (Res) Mirhaidari 6 mg at 06/09/202114 - [MAR Hold due to Transfer] pantoprazole DR 40 mg tab(s) (PROTONIX) 40 mg ORAL BEFORE BREAKFAST DAILY Chris (Res) Demshar 40 mg at 0540 - [MAR Hold due to Transfer] sertraline 100 mg tab(s) (ZOLOF T) 100 mg ORAL DAILY Chris (Res) Demshar 100 mg at 06/11/20751 - [MAR Hold due to Transfer] sucralfate 1 g tab(s) (CARAFATE ) 1 g ORAL QID Chris (Res) Demshar 1 g at 06/10/201956 - [MAR Hold due to Transfer] enoxaparin 40 mg injection (DONTRELL ENOX) 40 mg SUBCUTANEOUS DAILY Chris (Res) Demshar - [MAR Hold due to Transfer] sodium chloride 0.9 % (flush) 3-5 mL (BD POSIFLUSH) 3-5 mL INTRAVENOUS q 12 H Chris (Res) Demshar 3 mL at 05/16 - [MAR Hold due to Transfer] ondansetron 4 mg ta b(s) (ZOFRAN) 4 mg ORAL q 6 H PRN Chrsi (Res) Demshar Or - [MAR Hold due to Transfer] ondansetron (PF) 4 mg injection (ZOFRAN) 4 mg INTRAVENOUS q 6 H PRN Chris (Res) Demshar - [MAR Hold due to Transfer] oxyCODONE IR 5-10 m g tab(s) (ROXICODONE) 5-10 mg ORAL q 4 H PRN Chris (Res) Demshar 5 mg at 06/11/20 0404 - [MAR Hold due to Transfer] promethazine 25 mg tab(s) (PHENERGAN) 25 mg ORAL q 8 H PRN Chris (Res) Demshar 25 mg at 06/09/20 0443 - [MAR Hold due to Transfer] HYDROmorpho ne 0.5-1 mg injection (DILAUDID) 0.5-1 mg INTRAVENOUS q 3 H PRN Nigel (Res) Hockley 1 mg at 0536 - [MAR Hold due to Transfer] NaCl 0.9% iv infusion 125 mL/hr INTRAVENOUS CONTINUOUS Nigel (Res) Cr isp 125 mL/hr at 06/10/202247 125 mL/hr at 06/10/202247 - [MAR Hold due to Transfer] QUEtiapine 100 mg tab(s) (SEROquel) 100 mg ORAL AT BEDTIME Kimmie (Res) Dick 100 mg at 06/10/201956 Allergies: ALLERGIES Allergen Reactions - Penicillins Rash - Cephalexin Itching - Chlorhexidine Rash Skin rash - Toradol [Ketorolac] Rash - Tramadol Rash - Asa [Salicylates] Other: See Comments ulcers - Contrast Dye [Iodin* Shortness of Breath - Ibuprofen GI Upset - Prednisone Other: See Comments makes agitated and mean DOS EXAM: Adequate NPO status: Yes Anesthetic risks, benefits, alternatives , personnel and consent discussed: Yes Patient agrees to proceed: Yes Previous Anesthesia: No history of adverse event. Airway Assessment: MP 3; Nec k ROM: Full ROM without neurologic symptoms; Airway Evaluation: Thick neck Symptoms of Sleep Apnea: BMI > 35 and Neck circumference > 1 5.75 inches Dentition: Teeth intact. Denies loose teeth or frontal caps Additional Physical Exam: Lungs: Patient health status unchanged since rec ent history and physical. See history and physical for exam findings. Cardiac: Patient health stat us unchanged since recent history and physical. See history and physical for exam findings. Additional Pertinent Findings: N/A Blood Products: Not anticipated for this procedure. Anesthetic Plan: General, Standard ASA Monitors Pain Management Plan: Parenteral or Oral and Possible TAP blocks (will discuss with surgeon) ASA Class: 3 Other Medical Problems: hx pancreatitis, hx hepatic cy sts, chronic abdominal pain admitted with abdominal pain with nausea. Other hx incl udes obesity, controlled GERD, s/p hysterectomy Chronic Beta Lizandro medication administered within 24 hours : N/A I have interviewed and exami tracy the patient. I have reviewed the medical record and/or the pre-anesthesia evaluation, pertinent labs, and te st results. Significant changes in the patient's con dition since the History and Physical, not otherwise documented in primary service progress notes: No This contains updated inform ation obtained within 48 hours of Surgery/Procedure. SIGNATURE: Ruben Thompson MD PATIENT NAME: Sally joseph DATE: June 11, 2020 TIME: 9:49 AM CSN: [id number] Progress Notes ([facility]): Johnny Winn MD 06/06/2020 10:30 AM Signed Called Sally. Discussed th e findings of EGD and biopsies in detail. Discussed that biopsies from stomach showed changes of eosinophi lic gastritis that can present as nausea, vomiting, abdominal p ain, diarrhea. Her symptoms are little better after she has been trying gluten free diet. I a dvised to avoid dairy, soy, eggs, sea food and nuts (SFED). Will see her back in inic in 3-4 months/PRN. Will refer her to allergy/immunology. She is also following up with Dr Almendarez for her complex liver c ysts. All questions answered. MD [facility] 06/06/2020 10:53 AM Signed Patient is calling back with additional questions after speaking with Dr. Winn today. Please call patient. cnpn on 2020-06-06 CNPN Telephone (GSTNOR) Normal 06-06-2020 [place] SAMSALLY ([id number]) 1980 [facility] Date Time Provider Department ([id number]) 06/06/20 JOHNNY WINN GSTNOR During your visit today, we recorded the following informati on about you: Johnny Winn MD 06/06/2020 10:30 AM Signed Called Sally. Discussed th e findings of EGD and biopsies in detail. Discussed that biopsies from stomach showed changes of eosinophi lic gastritis that can present as nausea, vomiting, abdominal p ain, diarrhea. Her symptoms are little better after she has been trying gluten free diet. I a dvised to avoid dairy, soy, eggs, sea food and nuts (SFED). Will see her back in inic in 3-4 months/PRN. Will refer her to allergy/immunology. She is also following up with Dr Almendarez for her complex liver c ysts. All questions answered. MD [facility]ah Cunningham [facility] 06/06/2020 10:53 AM Signed Patient is calling back with additional questions after poli santamaria with Dr. Winn today. Please call patient. Allergies As of Date: 06/06/2020 Noted Allergy Reaction PENICILLINS 12/07/2009 2 - Rash CEPHALEXIN 10/20/2019 9 - Itching CHLORHEXIDINE 10/29/2016 2 - Rash Comments: Skin rash TORADOL (KETOROLAC) 05/25/2020 2 - Rash TRAMADOL 05/25/2020 2 - Rash ASA (SALICYLATES) 01/27/2011 14 - Other: See Comments Comments: ulcers CONTRAST DYE (IODINE) 05/17/2008 12 - Shortness of Breath IBUPROFEN 06/18/2016 8 - GI Upset PREDNISONE 06/18/2016 14 - Other: See Comments Comments: makes agitated and mean Date Reviewed: 05/28/2020 Reviewed by: Esperanza (Rn) VIN Cerda - Fully Assessed Reason for Visit: Follow Up Tests Results [770] 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] Order(s):CONSULT TO ALLERGY/IMMUNOLOGY [ 9001] Order #: [id number]: 1 FUTURE Prescriptions as of 06/06/2020 Sig: IV CONTRAST (RADIOLOGY PROCED* MRI ABDOMEN Inject, intraveno * DIAZEPAM 5 MG TABLET Take 1 tablet by mouth once d* PRAZOSIN 1 MG CAPSULE Take 1 mg by mouth daily at b* HYOSCYAMINE SULFATE 0.125 MG * Take 1 tablet by mouth every * SUCRALFATE 1 GRAM TABLET Take 1 tablet by mouth four t* PROMETHAZINE 25 MG TABLET Take 1 tablet by mouth every * Patient taking differently: Take 25 mg by mouth every 6 h* PANTOPRAZOLE 40 MG TABLET,DEL* Take 1 tablet by mouth daily * DIPHENHYDRAMINE 25 MG CAPSULE Take 50 mg by mouth every 6 h* ESTRADIOL 2 MG TABLET Take 2 mg by mouth once daily. SERTRALINE 100 MG TABLET Take 1 tablet by mouth once d* QUETIAPINE 100 MG TABLET Take 1 tablet by mouth once d* Problem List As Of Date 06/06/2020 Noted Resolved Routine gynecological examination [Z01.419] 05/17/2008 Class: Chronic More... More... Family history of diabetes mellitus [Z83.3] 05/17/2008 More... Calculus of kidney [N20.0] 05/17/2008 More... Allergic rhinitis, cause unspecified [J30.9] 05/17/2008 More... Migraine without aura [G43.009] 05/17/2008 More... Smoker [F17.200] 05/17/2008 More... Impaired fasting glucose [R73.01] 05/17/2008 More... Benign liver cyst [K76.89] 05/24/2010 Class: Chronic More... Ovarian cyst [N83.209] 07/15/2012 Generalized anxiety disorder [F41.1] 03/31/2016 Reactive depression [F32.9] 03/31/2016 More... Adjustment insomnia [F51.02] 03/31/2016 Encounter for screening for cardiovascular diso*03/31/2016 Bilateral low back pain without sciatica [M54.5]06/18/2016 More... Pain in left hip [M25.552] 06/18/2016 Greater trochanteric bursitis [M70.60] 06/18/2016 Hydronephrosis of left kidney [N13.30] 02/05/2017 Hydroureter on left [N13.4] 02/05/2017 Right facial numbness [R20.0] 02/23/2017 Right upper extremity numbness [R20.0] 02/23/2017 Numbness of right lower extremity [R20.0] 02/23/2017 Weakness of right upper extremity [R29.898] 02/23/2017 Weakness of right lower extremity [R29.898] 02/23/2017 Vision blurred [H53.8] 02/23/2017 Lumbar spine pain [M54.5] 02/23/2017 Cervical spine pain [M54.2] 02/23/2017 Abnormal MRI, lumbar spine [R93.7] 02/23/2017 Hydroureter, left [N13.4] 03/30/2017 Lung nodules [R91.8] 01/22/2020 More... Intractable nausea and vomiting [R11.2] 05/25/2020 Encounter Status:Closed by JOHNNY WINN MD on 06/06/20 progress on 2020-05 PROGRESS HNO ID: [id number] Normal 06-05-2020 [facility] Author: Mala sosa ([id number]) Service: ? Author Type: Physician Type: Progress Notes Filed: 06/05/2020 4:20 PM Note Text: AMBULATORY TELEPHONE VISIT Sally Mcgregor has consented to this telephone encounter. Persons Present: patient Chief Complaint/Reason: new patient HPI: 39-year-old female with a long history of a liver cyst. She states she had some certain drainage procedure in 2005 but does not remember what happened. She has continuous pain in the right upper quadran t. She was also recently hospitalized for pancreatitis. She had a evan cystectomy in the past. She denies any jaundice. She denies any fevers or chills. She is a non-smoker. She is a nondrinker. She has no family hist ory of pancreatitis. She has had several cysts on her ovaries and h as had an oophorectomy in the past. She denies any trauma to the area. She denies any jaundice. Data Reviewed: Most recent imaging Assessment: (K86.2) Pancreatic cyst (primary encounter diagnosis) I reviewed her recent imaging. This shows a large 10 cm cyst in the posterior lobe of her right liver. Her pancreas appears norm al on her CT scan. Had a long discussion with her and told her I would li ke to get an MRI to better characterize her pancreatitis to ensure she do es not have pancreas divisum. For her liver cyst she would be an excelle nt candidate for a laparoscopic liver cyst fenestration. If there is an i ssue with diabetes and she may benefit from a laparoscopic transduoden al sphincteroplasty. I will order the MRI and follow-up with he r after this. Plan: MRI of pancreas Total Time Spent: 11 minutes Mala Almendarez MD progress on 2020-05 PROGRESS HNO ID: [id number] Normal 06-01-2020 [facility] Author: Branden PickardNetwork Navigator) Amalia Mata ([id number]) Service: ? Author Type: Shipping Manager Type: Progress Notes Filed: 06/01/2020 12:42 PM Note Text: Patient has follow up with next Thursday for Pancreatitis. progress on 2020-05 PROGRESS HNO ID: [id number] Normal 05-31-2020 [facility] Author: Marcelino Mejia [place] ([id number]) Service: ? 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 She has been seeing them for recurring pancreatit is and stomach issues. I have nothing further I can add to her care at this time. PROGRESS HNO ID: [id number] Normal 05-31-2020 [facility] Author: Branden (Network Navigator) Amalia [place] ([id number]) Service: ? Author Type: Shipping Manager Type: Progress Notes Filed: 05/31/2020 8:49 AM Note Text: TRANSITIONAL CARE MANAGEMENT (TCM) COMMUNITY MONITORING PROG BRITTANI Provider Action/FYI: Called and spoke with patient. States she is still a little nauseated at this time. She is trying to get back into eating and still having a demian d time with stomach issues. She tried to eat a piece of toast this morning and states sh e just could not finish it. We did try to schedule hospital follow up appointment with CHAZ Johns and other providers. Could not find anything available until mid June. Advised her I will have Dr Mejia's ask his scheduling depar tment to reach out to her to assist with appointment. Thank you SUMMARY: Pt discharged from [facility] on May 29, 2020 Admitted for: Intractable nausea and vomitting Contact made with patient: Yes Hi my name is ANDRE Graham and I am calling from the [facility] on behalf of your PCP, Marcelino Mejia MD I understand you were recently in the hospital so I am calling to check in with you to ensure you are feeling well now that you're home . May I ask you a few questions related to your hospital stay and well-b eing? Yes Contact with patient post discharge, spoke to patient. Patient identified by name and . Do you feel your health is BETTER, WORSE, or the SAME since leaving the hospital? Same ACTION TAKEN: Patient indicated symptoms are better or same, no action req uired. Continue outreach. MEDICATIONS: Many patients have questions or concerns about their medicat ions once they are home. Do you have any questions about taking your medica tions or which medication you should be on? No Do you need any medication refills at this time, including a ny of the medications you might take only when needed? No ACTION TAKEN: No action required For RNs or Pharmacy completing outreach ONLY, was a medicati on review completed? No SOCIAL: We would like to make sure you have what you need so that yo ur basics needs are met - including your personal safety, food, housin g and medications. Would you like to speak with a social work human resources team member to help give you support for any of these needs? No It can be normal to feel anxious or down during a time like this. Would you like to talk to a mental health professional about how y ou have been feeling? No ACTION TAKEN: No action taken DISCHARGE INTRUCTIONS: Your discharge instructions / After Visit Summary (AVS) are important in guiding you through the recovery process. Do you have any qu estions related to your discharge instructions? No Do you have all the necessary equipment and supplies at home ? Yes ACTION TAKEN: No action required I would like to help you schedule a hospital follow-up virtu al or telephone visit with your PCP. This is a great way for you t o connect with your provider to ensure you have safely transitioned home. I f you are agreeable, I will send your request to a pediatric oncology nurse who will contact and assist you with that appointment. This will give you an oppo rtunity to ask any questions or address any concerns you may have with your PCP. Inform the patient that if they have any questions or concer ns prior to that appointment, to call their PCP's office right away. ACTION TAKEN: Dr Mejia's office will reach out to patient to assist with scheduling HOSTED SERVICES ANALYST: Patient Mira status is: Active account Thank you for taking the time to talk with me today. We want to work with you to ensure that we are keeping you healthy and out of the hospital. Our team would like to stay connected with you to make sure you are feeling well. Your doctor would like us to remind you of the recommendatio ns regarding the coronavirus (Covid19) outbreak: ? Avoid public places as much as possible. ? Avoid close contact (within 6 feet) with others you don?t live with, especially if they are sick. ? Stay home if you are sick. ? Wash your hands regularly for at least 20 seconds with soa p and water. ? Wear a cloth mask in public places to help reduce communit y spread. ? Do not go to your Doctor?s office unless instructed to do so. For any non-emergency symptoms, call your Doctor?s office to get ins tructions on how to manage (we might recommend a telephone or virtual vis it). For emergency symptoms, proceed to Emergency Department as usual but inform them of cough and fever symptoms MEME if present (or call on the way if possible). cnpn on 2020-05-31 CNPN Telephone (GSTNOR) Normal 05-31-2020 [place] [facility] SALLY MCGREGOR ([id number]) 1980 [facility] Date Time Provider Department ([id number]) 05/31/20 JOHNNY WINN [facility]NOR During your visit today, we recorded the following informati on about you: Pierce Sunil Cates 05/31/2020 2:37 PM Signed Patient call, said she was doing ok yesterday, today having epigastric abdominal pain, nausea and vomiting. Has appt [facility] Dr. Almendarez next week. Advised ER consult due to worsening of symptoms. Pierce Barber MA Allergies As of Date: 05/31/2020 Noted Allergy Reaction PENICILLINS 12/07/2009 2 - Rash CEPHALEXIN 10/20/2019 9 - Itching CHLORHEXIDINE 10/29/2016 2 - Rash Comments: Skin rash TORADOL (KETOROLAC) 05/25/2020 2 - Rash TRAMADOL 05/25/2020 2 - Rash ASA (SALICYLATES) 01/27/2011 14 - Other: See Comments Comments: ulcers CONTRAST DYE (IODINE) 05/17/2008 12 - Shortness of Breath IBUPROFEN 06/18/2016 8 - GI Upset PREDNISONE 06/18/2016 14 - Other: See Comments Comments: makes agitated and mean Date Reviewed: 05/28/2020 Reviewed by: Esperanza Naranjo) VIN Cerda - Fully Assessed Reason for Visit: Patient Update [1234] Prescriptions as of 05/31/2020 Sig: PRAZOSIN 1 MG CAPSULE Take 1 mg by mouth daily at b* OXYCODONE 5 MG TABLET Take 1 tablet by mouth every * HYOSCYAMINE SULFATE 0.125 MG * Take 1 tablet by mouth every * SUCRALFATE 1 GRAM TABLET Take 1 tablet by mouth four t* PROMETHAZINE 25 MG TABLET Take 1 tablet by mouth every * Patient taking differently: Take 25 mg by mouth every 6 h* PANTOPRAZOLE 40 MG TABLET,DEL* Take 1 tablet by mouth daily * DIPHENHYDRAMINE 25 MG CAPSULE Take 50 mg by mouth every 6 h* ESTRADIOL 2 MG TABLET Take 2 mg by mouth once daily. SERTRALINE 100 MG TABLET Take 1 tablet by mouth once d* QUETIAPINE 100 MG TABLET Take 1 tablet by mouth once d* Problem List As Of Date 05/31/2020 Noted Resolved Routine gynecological examination [Z01.419] 05/17/2008 Class: Chronic More... More... Family history of diabetes mellitus [Z83.3] 05/17/2008 More... Calculus of kidney [N20.0] 05/17/2008 More... Allergic rhinitis, cause unspecified [J30.9] 05/17/2008 More... Migraine without aura [G43.009] 05/17/2008 More... Smoker [F17.200] 05/17/2008 More... Impaired fasting glucose [R73.01] 05/17/2008 More... Benign liver cyst [K76.89] 05/24/2010 Class: Chronic More... Ovarian cyst [N83.209] 07/15/2012 Generalized anxiety disorder [F41.1] 03/31/2016 Reactive depression [F32.9] 03/31/2016 More... Adjustment insomnia [F51.02] 03/31/2016 Encounter for screening for cardiovascular diso*03/31/2016 Bilateral low back pain without sciatica [M54.5]06/18/2016 More... Pain in left hip [M25.552] 06/18/2016 Greater trochanteric bursitis [M70.60] 06/18/2016 Hydronephrosis of left kidney [N13.30] 02/05/2017 Hydroureter on left [N13.4] 02/05/2017 Right facial numbness [R20.0] 02/23/2017 Right upper extremity numbness [R20.0] 02/23/2017 Numbness of right lower extremity [R20.0] 02/23/2017 Weakness of right upper extremity [R29.898] 02/23/2017 Weakness of right lower extremity [R29.898] 02/23/2017 Vision blurred [H53.8] 02/23/2017 Lumbar spine pain [M54.5] 02/23/2017 Cervical spine pain [M54.2] 02/23/2017 Abnormal MRI, lumbar spine [R93.7] 02/23/2017 Hydroureter, left [N13.4] 03/30/2017 Lung nodules [R91.8] 01/22/2020 More... Intractable nausea and vomiting [R11.2] 05/25/2020 Encounter Status:Closed by PIERCE BARBER MA on 05/31/20 progress on 2020-05 PROGRESS HNO ID: [id number] Normal 05-30-2020 [facility] Author: Allie (Network Navigator) Skyler Mata ([id number]) Service: ? Author Type: Shipping Manager Type: Progress Notes Filed: 05/31/2020 8:49 AM Note Text: TRANSITIONAL CARE MANAGEMENT (TCM) COMMUNITY MONITORING PROG BRITTANI Provider Action/FYI: Message left for patient. Attempting to schedule TCM appoint ment SUMMARY: Pt discharged from [facility] on 05/29. Admitted for: intractable nausea and vomiting Contact made with patient: No - scheduled next outreach for next business day in the Track Pt Outreach section Outreach ended cnptoutreach on CNPTOUTREACH Patient Outreach (FAMPWS) Normal 0 05-30-2020 [place] S[facility] Martinez ([id number]) 1980 [place] Date Time Provider Department ([id number]) 05/30/20 ALLIE CHOWDHURY (NETWORK NAVIGATOR)RAMA During your visit today, we recorded the following informati on about you: ANDRE Sorensen 05/31/2020 8:49 AM Signed TRANSITIONAL CARE MANAGEMENT (TCM) COMMUNITY MONITORING PROG BRITTANI Provider Action/FYI: Message left for patient. Attempting to schedule TCM appoint ment SUMMARY: Pt discharged from [facility] on 05/29. Admitted for: intractable nausea and vomiting Contact made with patient: No - scheduled next o [facility] for next day in the Track Pt Outreach section Outreach ended ANDRE Graham 05/31/2020 8:49 AM Sue d TRANSITIONAL CARE MANAGEMENT (TCM) COMMUNITY MONITORING PROG BRITTANI Provider Action/FYI: Called and spoke with patient. States she is still a little nauseated at this time. She is trying to get back in to eating and still having a hard time with stomach issues. She tried to eat a piece of toast this morning and sta los she just could not finish it. We did try to schedule hospital follow up appointment with CHAZ Byrne and other providers. Could not find anything available until mid June. Advised her I will have Dr Mejia's ask his scheduling department to reach out to her to assist with appointment. Thank you SUMMARY: Pt discharged from [facility] on May 29, 2020 Admitted for: Intractable nausea and vomitting Contact made with patient: Yes Hi my name is ANDRE Graham and I am calling from the [facility] on behalf of your PCP, Marcelino Mejia MD I understand you were recently in the hospital so I am calling to check in with you to ensure you are feeling well now that you're home. May I ask you a f ew questions related to your hospital stay and well-being? Yes Contact with patient post discharge, spoke to patient. Patient identified by name and . Do you feel your health is BETTER, WORSE, or the SAME since leaving the hospital? Same ACTION TAKEN: Patient indicated symptoms are better or same, no action r equired. Continue outreach. MEDICATIONS: Many patients have questions or concerns about their medications once they are home. Do you have any questions about taking your medication s or which medication you should be on? No Do you need any medication refills at this time, including a ny of the medications you might take only when needed? No ACTION TAKEN: No action required For RNs or Pharmacy completing outreach ONLY, was a medicati on review completed? No SOCIAL: We would like to make sure y ou have what you need so that your basics needs are met - including your personal safety, fo od, housing and medications. Would you like to speak with a social work human resources team member to help give you support for any of these needs? No It can be normal to feel anxious or down during a time lik e this. Would you like to talk to a mental health professional abo ut how you have been feeling? No ACTION TAKEN: No action taken DISCHARGE INTRUCTIONS: Your discharge instructions / After Visit Summary (AVS) are important in guiding you through the recovery process . Do you have any questions related to your discharge instructions? No Do you have all the necessary equipment and supplies at home ? Yes ACTION TAKEN: No action required I would like to help you schedule a hospital follow-up vir tual or telephone visit with your PCP. This is a great way for you to connect with your provider to ensure you have safely transitioned h ome. If you are agreeable, I will send your request to a pediatric oncology nurse who will contact and assist you with that appointment. This will give you an oppor tunity to ask any questions or address any concerns you may have with your PCP. Inform the patient that if they have any questions or concerns prior to that appointment, to call their PCP's office right away. ACTION TAKEN: Dr Mejia's office will reach out to patient to assist with scheduling HOSTED SERVICES ANALYST: Patient Mira status is: Active account Thank you for taking the time to talk with me to day. We want to work with you to ensure that we are keeping you healthy and out of the h ospital. Our team would like to stay connected with you to make sure you are f eeling well. Your doctor would like us to remind you of the recomme ndations regarding the coronavirus (Covid19) outbreak: ? Avoid public places as much as possible. ? Avoid close contact (within 6 feet) with others you don?t live with, especially if they are sick. ? Stay home if you are sick. ? Wash your hands regularly for at least 20 seconds with soa p and water. ? Wear a cloth mask in public places to help reduce communit y spread. ? Do not go to your Doctor?s office unless instructed to do so. For any non-emergency symptoms, call your Doctor?s office to get instructions on how to manage (we might recommend a telephone or virtual visit). Fo r emergency symptoms, proceed to Emergen cy Department as usual but inform them of cough and fever symptoms MEME if present (or call on the way if possrahat le). 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 She has been seeing them for recurring verdugo creatitis and stomach issues. I have nothing further I can add to her care at this time. Branden Garza, NETWORK NAVIGATOR 06/01/2020 12:42 PM Sign ed Patient has follow up with next Thursday for Pancreatitis. Allergies As of Date: 05/30/2020 Noted Allergy Reaction PENICILLINS 12/07/2009 2 - Rash CEPHALEXIN 10/20/2019 9 - Itching CHLORHEXIDINE 10/29/2016 2 - Rash Comments: Skin rash TORADOL (KETOROLAC) 05/25/2020 2 - Rash TRAMADOL 05/25/2020 2 - Rash ASA (SALICYLATES) 01/27/2011 14 - Other: See Comments Comments: ulcers CONTRAST DYE (IODINE) 05/17/2008 12 - Shortness of Breath IBUPROFEN 06/18/2016 8 - GI Upset PREDNISONE 06/18/2016 14 - Other: See Comments Comments: makes agitated and mean Date Reviewed: 05/28/2020 Reviewed by: Esperanza Naranjo) VIN Cerda - Fully Assessed Reason for Visit: Transition Of Care [2154] Cmt: milka, perlita 05/29. initi al outreach Prescriptions as of 05/30/2020 Sig: PRAZOSIN 1 MG CAPSULE Take 1 mg by mouth daily at b* OXYCODONE 5 MG TABLET Take 1 tablet by mouth every * HYOSCYAMINE SULFATE 0.125 MG * Take 1 tablet by mouth every * SUCRALFATE 1 GRAM TABLET Take 1 tablet by mouth four t* PROMETHAZINE 25 MG TABLET Take 1 tablet by mouth every * Patient taking differently: Take 25 mg by mouth every 6 h* PANTOPRAZOLE 40 MG TABLET,DEL* Take 1 tablet by mouth daily * DIPHENHYDRAMINE 25 MG CAPSULE Take 50 mg by mouth every 6 h* ESTRADIOL 2 MG TABLET Take 2 mg by mouth once daily. SERTRALINE 100 MG TABLET Take 1 tablet by mouth once d* QUETIAPINE 100 MG TABLET Take 1 tablet by mouth once d* Problem List As Of Date 05/30/2020 Noted Resolved Routine gynecological examination [Z01.419] 05/17/2008 Class: Chronic More... More... Family history of diabetes mellitus [Z83.3] 05/17/2008 More... Calculus of kidney [N20.0] 05/17/2008 More... Allergic rhinitis, cause unspecified [J30.9] 05/17/2008 More... Migraine without aura [G43.009] 05/17/2008 More... Smoker [F17.200] 05/17/2008 More... Impaired fasting glucose [R73.01] 05/17/2008 More... Benign liver cyst [K76.89] 05/24/2010 Class: Chronic More... Ovarian cyst [N83.209] 07/15/2012 Generalized anxiety disorder [F41.1] 03/31/2016 Reactive depression [F32.9] 03/31/2016 More... Adjustment insomnia [F51.02] 03/31/2016 Encounter for screening for cardiovascular diso*03/31/2016 Bilateral low back pain without sciatica [M54.5]06/18/2016 More... Pain in left hip [M25.552] 06/18/2016 Greater trochanteric bursitis [M70.60] 06/18/2016 Hydronephrosis of left kidney [N13.30] 02/05/2017 Hydroureter on left [N13.4] 02/05/2017 Right facial numbness [R20.0] 02/23/2017 Right upper extremity numbness [R20.0] 02/23/2017 Numbness of right lower extremity [R20.0] 02/23/2017 Weakness of right upper extremity [R29.898] 02/23/2017 Weakness of right lower extremity [R29.898] 02/23/2017 Vision blurred [H53.8] 02/23/2017 Lumbar spine pain [M54.5] 02/23/2017 Cervical spine pain [M54.2] 02/23/2017 Abnormal MRI, lumbar spine [R93.7] 02/23/2017 Hydroureter, left [N13.4] 03/30/2017 Lung nodules [R91.8] 01/22/2020 More... Intractable nausea and vomiting [R11.2] 05/25/2020 Encounter Status:Closed by AMALIA POWELL NAVIGATORALBAN on 05/31/20 progress on 2020-05 PROGRESS HNO ID: [id number] Normal 05-29-2020 Milka Author: Vickie Srivastava [facility] Service: Hospital Medicine Medical Author Type: Resident Center Type: Progress Notes ([id number]) Filed: 05/29/2020 2:51 PM Note Text: Attestation signed by Marcelino Flores at 05/29/2020 4:5 9 PM House Medicine Service Attending Attestation I personally saw and examined the patient. I reviewed the resident?s note. I agree with the resident?s assessment and plan unless otherwi se noted. Marcelino Flores MD HOUSE MEDICINE SERVICE PROGRESS NOTE SERVICE DATE: May 29, 2020 SERVICE TIME: 1:53 PM NIGHT AND WEEKEND COVERAGE: From 6 AM to 5 PM: You may reach the House Medicine internal medicine physician currently assigned to this patient by jack mahoney their pager number on the treatment team (they will be assigned as the i ntern or resident). It is the last four digits in the phone number be ginning with ([phone]). We encourage the use of [employer] Secure Chat. SUBJECTIVE HPI: 39 year old F PMHx idiopathic pancreatitis, hepatic cys ts presenting to the ED with intractable nausea and vomiting as well as RU Q abdominal pain for the past 3 days. States that she called her GI doct or Dr. Winn and he told her to come into the ED. She has a scope [facility] ed for 05/[address] Winn. Was given pain medications and 1L NS bolus in the ED. Hemodynamically stable in the ED. CT abdomen/pelvis showing known hepatic cysts, however no signs of pancreatitis. Lipase and WBC coun t normal. When evaluated by me, still endorsing RUQ abdominal pain and naus ea, but no vomiting since presentation to the ED. ? Interval Events: Pt complains of RUQ abdominal pain that is controlled by current pain medications. She denies any fever, diarrhea, na usea or vomiting. She was eating and drinking well. The nurse got in touch with GI and said that they f/u outpatient. OBJECTIVE Medications: IV Infusions: - NaCl 0.9%, Last Rate: 100 mL/hr (05/28/20 0919) Scheduled: - sucralfate, 1 g, QID - QUEtiapine, 100 mg, DAILY - estradiol, 2 mg, DAILY - pantoprazole DR, 40 mg, BEFORE BREAKFAST DAILY - sertraline, 100 mg, DAILY - enoxaparin, 40 mg, DAILY PRN: - oxyCODONE IR, 5-10 mg, q 6 H PRN - diphenhydrAMINE, 50 mg, q 6 H PRN - albuterol, 2.5 mg, q 4 H PRN - promethazine, 25 mg, q 6 H PRN - acetaminophen, 650 mg, q 4 H PRN Vital Signs: BP 112/68 Pulse 63 Temp (Src) 97.2 (Oral) Resp 14 Ht 5' 1 (1.55m) Wt 200 lb 6.4 oz (90.9kg) SpO2 100% LMP 08/10/2006 BMI 37.88 kg/(m2). O2 Therapy: Room Air Physical Exam Performed: GENERAL: well appearing, alert and in no acute distress HEART: regular rate and rhythm, no murmer, gallop or rub, no rmal, S1, S2, no lifts, heaves, or thrills, PMI not displaced LUNGS: clear to percussion and auscultation and no rales ABDOMEN: Soft, RUQ tender, bowel sounds normal, no palpable organomegaly, no bruits. EXTREMITY: Normal exam of the extremities. No clubbing, cyan osis, or edema. Lines, Drains, and Airways None Assessment/Plan Problem List Intractable nausea and vomiting Intractable nausea and vomiting Associated with RUQ abdominal pain S/p cholecystectomy 1998 Hx of pancreatitis, however no evidence on labs or imaging CT abdomen/pelvis showing known hepatic cysts but otherwise fairly unremarkable Continue supportive care and symptomatic relief Pain is still present. Pain Mx on board. Anti-emetics q4 prn Pt on regular diet EGD USG did not show any acute concerning findings, Pt can f /u with outpatient GI Medication and Non-Pharmacologic VTE Prophylaxis/Anticoagula nts Anticoagulant AND Antiplatelet Medications (From admission, onward) Start Dose Route Frequency Ordered Stop 05/25/201999 enoxaparin 40 mg injection (LOVENOX) (Medical Risk Categories) 40 mg SUBCUTANEOUS DAILY 05/25/201935 -- 05/25/201944 pneumatic compression stockings (ks,oh) VTE Prophylaxis: VTE prophylaxis appropriate GI Prophylaxis: Indicated due to chronic acid suppression th erapy as an outpatient Telemetry: no Disposition: Home Code Status: Not on file Plan of care discussed with: Provider, RN, Patient SIGNATURE: Vickie Srivastava MD PATIENT NAME: Sally shannon DATE: May 29, 2020 TIME: 1:53 PM plan of care on PLAN OF CARE HNO ID: [id number] Normal 05-29-20 [facility] Author: Felix Foster (Pharmacist) Center ([id number]) Service: Pharmacy Author Type: Pharmacist Type: Plan of Care Filed: 05/29/2020 2:49 PM Note Text: MEDICATION RECONCILIATION Patient Name:Marlen Mcgreogr : 1980 Reconciliation: Yes All LENDING ACTIVITIES SUPERVISOR medications addressed by LIP Additional comments: aggree with student note Allergies: ALLERGIES Allergen Reactions - Penicillins Rash - Cephalexin Itching - Chlorhexidine Rash Skin rash - Toradol [Ketorolac] Rash - Tramadol Rash - Asa [Salicylates] Other: See Comments ulcers - Contrast Dye [Iodin* Shortness of Breath - Ibuprofen GI Upset - Prednisone Other: See Comments makes agitated and mean Preferred Pharmacy: [facility] Current LENDING ACTIVITIES SUPERVISOR Medications: Prior to Admission medications as of 05/29/20 0928 Medication Sig Last Dose Taking prazosin (MINIPRESS) 1 mg cap Take 1 mg by mouth daily at [facility]. Yes hyoscyamine (LEVSIN) 0.125 mg tablet Take 1 tablet by mouth every 6 hours as needed. Yes sucralfate (CARAFATE) 1 gram tablet Take 1 tablet by mouth f our times daily. Yes promethazine (PHENERGAN) 25 mg tablet Take 1 tablet by mouth every 8 hours as needed (for nausea). Patient taking differently: Take 25 mg by mouth every 6 hour s as needed (for nausea). Yes diphenhydrAMINE (BENADRYL) 25 mg capsule Take 50 mg by mouth every 6 hours as needed. Yes estradiol (ESTRACE) 2 mg tablet Take 2 mg by mouth once kehinde y. Yes sertraline (ZOLOFT) 100 mg tablet Take 1 tablet by mouth onc e daily. Yes QUEtiapine (SEROQUEL) 100 mg tablet Take 1 tablet by mouth o nce daily. Yes oxyCODONE IR (ROXICODONE) 5 mg immediate release tablet Take 1 tablet by mouth every 6 hours as needed for Pain for up to [address] (PROTONIX) 40 mg tablet Take 1 tablet by nick th daily before breakfast. Take on empty stomach, 1/2 hr before meal. BRIDGET CORADO May 29, 2020 2:47 PM PLAN OF CARE HNO ID: [id number] [place] 05-29-20 [facility] Author: Felix Foster (Pharmacist) [place] ([id number]) Service: Pharmacy Author Type: Pharmacist Type: Plan of Care Filed: 05/29/2020 2:54 PM Note Text: DISCHARGE MEDICATION REVIEW BY PHARMACY Patient Name: Sally Mcgregor Account #: Data Unavailable Admission Date: 05/25/2020 Date of Contact: May 29, 2020 Time of Contact: 2:50 PM Medication list was reviewed by a Pharmacist for drug intera ctions or drug related problems:Yes Below is a summary of pharmacist recommendations discussed w ith LIP: Discharge medication reconciliation BRIDGET CORADO May 29, 2020 2:50 PM Pager: [phone] 05/29/2020 2:50 PM Medication List START taking these medications oxyCODONE IR 5 mg immediate release tablet Commonly known as: ROXICODONE Take 1 tablet by mouth every 6 hours as needed for Pain for up to 5 days. CHANGE how you take these medications promethazine 25 mg tablet Commonly known as: PHENERGAN Take 1 tablet by mouth every 8 hours as needed (for nausea). What changed: when to take this CONTINUE taking these medications diphenhydrAMINE 25 mg capsule Commonly known as: BENADRYL estradiol 2 mg tablet Commonly known as: ESTRACE hyoscyamine 0.125 mg tablet Commonly known as: LEVSIN Take 1 tablet by mouth every 6 hours as needed. pantoprazole DR 40 mg tablet Commonly known as: PROTONIX Take 1 tablet by mouth daily before breakfast. Take on empty stomach, 1/2 hr before meal. prazosin 1 mg Cap Commonly known as: MINIPRESS QUEtiapine 100 mg tablet Commonly known as: SEROquel sertraline 100 mg tablet Commonly known as: ZOLOFT sucralfate 1 gram tablet Commonly known as: CARAFATE Take 1 tablet by mouth four times daily. Where to Get Your Medications [id number] [place] [address] - [address] [phone] [address] [address] [id number] ? oxyCODONE IR 5 mg immediate release tablet PLAN OF CARE HNO ID: [id number] [place] 05-29-20 [facility] Author: Felix Foster (Pharmacist) Center ([id number]) Service: Pharmacy Author Type: Pharmacist Type: Plan of Care Filed: 05/29/2020 2:47 PM Note Text: MEDICATION HISTORY Patient Name:Marlen Mcgregor : 1980 Source of history:Patient: Reliability of source: Appears re liable, clearly identified: Medication name, Medication frequency an d Timing of last dose and Pharmacy records: [facility] #[id number] in [place], [place] [phone] Medication Nonadherence Identified: No barriers noted The above information represents the best possible medicatio n history: Yes Additional comments: Confirmed with patient and pharmacist hanna t [facility] Pharmacy - Recent changes to medications outpatient from Dr. Winn, patient did not start Sucralfate and Promethazine prior to admission and only took 1 dose of Hyoscyamine prior to admission Opsmu-xo-Mjgzylokb Medication List Adjustments: Medication Regimen Changes: Promethazine 25 mg by mouth every 6 hours PRN - changed from every 8 hours ? Medications Added: Prazosin 1 mg by mouth once daily at bedtime ? Medications Removed: Albuterol HFA 90 mcg/act #2 puffs into lungs every 4 hours P RN Align 4 mg by mouth once daily Short-Term Medications: Dicyclomine 10 mg by mouth 4 times daily - discontinued by Dr. Winn on 05/24/20 and changed to hyosc yamine Further Clarification Required: Sucralfate 1 gm by mouth 4 times daily Promethazine 25 mg by mouth every 6 hours PRN - patient not yet started medications prior to admission Hyoscyamine 0.125 mg by mouth every 6 hours PRN - patient only took 1 dose evening of 05/24/20 prior to admis matias ? ? Patient is a 30 day readmission: No ? 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 Yes hyoscyamine (LEVSIN) 0.125 mg tablet Take 1 tablet by mouth every 6 hours as needed. Yes sucralfate (CARAFATE) 1 gram tablet Take 1 tablet by mouth f our times daily. Yes promethazine (PHENERGAN) 25 mg tablet Take 1 tablet by mouth every 8 hours as needed (for nausea). Patient taking differently: Take 25 mg by mouth every 6 hour s as needed for Nausea/Vomiting (for nausea). Yes diphenhydrAMINE (BENADRYL) 25 mg capsule Take 50 mg by mouth every 6 hours as needed. Yes estradiol (ESTRACE) 2 mg tablet Take 2 mg by mouth once kehinde y. Yes sertraline (ZOLOFT) 100 mg tablet Take 1 tablet by mouth onc e daily. Yes QUEtiapine (SEROQUEL) 100 mg tablet Take 1 tablet by mouth o nce daily. Yes pantoprazole DR (PROTONIX) 40 mg tablet Take 1 tablet by nick th daily before breakfast. Take on empty stomach, 1/2 hr before meal. Maggi Hernandez (Courtesy [employer]) May 29, 2020 9:14 AM mdrd gfr on 2020-05 GFR/1.73 sq M >60 >60mL/min/1.73m2 mL/min/{1.73_m2} Normal [facility] among [facility] th System non-blacks MDRD (000 00) (S/P/Bld) [Vol rate/Area] Comment: Result Comment: If the patie nt is , multiply the result by 1.210. Performed By: #### GFR #### [address] [address] hemogram on 2020-05 Erythrocyte distribution 13.2 11.7-14.4 % Normal 05-29 [facility] width (RBC) [Ratio] System (35462) Comment: Performed By: #### LIP #### [address] [address] Hematocrit (Bld) [Volume 36.1 34.1-44.9 % Normal 05-29 [employer] fraction] System (00 000) Comment: Performed By: #### LIP #### [address] [address] Hemoglobin (Bld) 11.5 11.2-15.7 g/dL Normal 05-29-2020 [facility] [email or web address] [Mass/Vol] System (0 0000) Comment: Performed By: #### LIP #### [address] [address] MCH (RBC) [Entitic mass] 29.0 25.6-32.2 pg Normal 05-29 [employer] System (00 000) Comment: Performed By: #### LIP #### [address] [address] MCHC (RBC) [Mass/Vol] 31.9 31.6-34.8 % Normal 05-29-20 20 [facility] ([address]) Comment: Performed By: #### LIP #### [facility] [address] [place], [place] [address] MCV (RBC) [Entitic vol] 90.9 79.4-94.8 fl Normal 2019 [facility] (00 000) Comment: Performed By: #### LIP #### [facility] [address] [place], [place] [address] Platelet mean volume (Bld) 10.9 9.4-12.3 fl Normal [facility] [Entitic vol] System (77[address]) Comment: Performed By: #### LIP #### [facility] [address] [place], [place] [address] Platelets (Bld) [#/Vol] 223 182-369 thou/cmm Normal 2019 [facility] (00 000) Comment: Performed By: #### LIP #### [facility] [address] [place], [place] [address] RBC (Bld) [#/Vol] 3.97 3.93-5.22 mil/cmm Normal 05-29-2020 [facility] (00 000) Comment: Performed By: #### LIP #### [facility] [address] [place], [place] [address] RDW SD 43.5 36.4-46.3 fl Normal 05-29-2020 [facility] ([address]) Comment: Performed By: #### LIP #### [facility] [address] [place], [place] [address] WBC (Bld) [#/Vol] 5.88 3.98-10.04 thou/cmm Normal 05-29-2020 [facility] (00 000) Comment: Performed By: #### LIP #### [facility] [address] [place], [place] [address] consult on CONSULT HNO ID: [id number] Normal 05-29-2020 [facility] Author: Maria Luisa Joyner [facility] Service: Pain Management ([id number]) Author Type: Physician Type: Consults Filed: 05/29/2020 11:10 AM Note Text: SALLY MCGREGOR 39 year old PAIN CONSULTATION: Abdominal pain, history of idiopathic verdugo creatitis. 24 HOUR COMFORT MEDICATIONS: Tylenol x0 Benadryl 50 mg x 2 Phenergan 25 mg x 2 Oxycodone 10 mg x 3 Quetiapine 100 mg daily [place] prescription history Shows occasional use of opiates, m ost recently oxycodone 5 mg, #12 filled on 02/18/2020, most recent triazola m 0.25 mg, #2 filled on 03/23/2020. No real concerns other than frequent sm all doses of opiates. Opiate naive on admission. Interval HPI: Stable overnight, patient complains pain score 7/8. Able to tolerate a salad and potato salad last evening. 05/28 EGD/EUS Lobular pancreas with no other mass/cysts noted . Mild gastritis s/p biopsies. Subjective HPI: 39-year-old female admitted on 05/25/2020 with complaint s of nausea, emesis, abdominal pain, with a prior history of idiopathic p ancreatitis and known to have hepatic cysts. CT of the abdomen/pelvis ob tained this admission showed stable hepatic cysts, and no evidence of ac mi'kmaq pancreatitis with normal lipase, and CBC. At this time, not experiencing any fever, chills, sweats, he matemesis, hematochezia, additional GI, , constitutional, pulmonary, or other symptoms. Current Facility-Administered Medications Medication Dose Route Frequency Provider Last Rate Last Dose - oxyCODONE IR 5-10 mg tab(s) (ROXICODONE) 5-10 mg ORAL q 6 H PRN Maria Luisa K Scantling 10 mg at 05/29/20 1020 - sucralfate 1 g tab(s) (CARAFATE) 1 g ORAL QID Johnny Mccall Winn 1 g at 05/29/20 0916 - diphenhydrAMINE 50 mg (BENADRYL) 50 mg ORAL q 6 H PRN [place] ir Mccall Winn 50 mg at 05/29/20 0421 - QUEtiapine 100 mg tab(s) (SEROquel) 100 mg ORAL DAILY [place] ir Mccall Winn 100 mg at 05/28/204 - albuterol 2.5 mg /3 mL (0.083 %) 2.5 mg (PROVENTIL) 2.5 mg INHALATION q 4 H PRN Johnny Winn - estradiol 2 mg tab(s) (ESTRACE) 2 mg ORAL DAILY Johnny Winn 2 mg at 05/27/20 0855 - pantoprazole DR 40 mg tab(s) (PROTONIX) 40 mg ORAL BEFORE BREAKFAST DAILY Johnny Personhu 40 mg at 05/29/20 0916 - sertraline 100 mg tab(s) (ZOLOFT) 100 mg ORAL DAILY Johnny Personhu 100 mg at 05/29/20 0916 - enoxaparin 40 mg injection (LOVENOX) 40 mg SUBCUTANEOUS DA FEDERICO Johnny Winn - NaCl 0.9% iv infusion 100 mL/hr INTRAVENOUS CONTINUOUS Milo Winn 100 mL/hr at 05/28/20 0919 100 mL/hr at 05/28/20 09 - promethazine 25 mg tab(s) (PHENERGAN) 25 mg ORAL q 6 H PRN Johnny Personhu 25 mg at 05/28/20 1636 - acetaminophen 650 mg tab(s) (TYLENOL) 650 mg ORAL q 4 H MT N Johnny Winn - prazosin (MINIPRESS) 1 mg cap, Take 1 mg by mouth daily at bedtime., Disp: , Rfl: - hyoscyamine (LEVSIN) 0.125 mg tablet, Take 1 tablet by nick th every 6 hours as needed., Disp: 60 tablet, Rfl: 1 - sucralfate (CARAFATE) 1 gram tablet, Take 1 tablet by mout h four times daily., Disp: 30 tablet, Rfl: 0 - promethazine (PHENERGAN) 25 mg tablet, Take 1 tablet by mo uth every 8 hours as needed (for nausea). (Patient taking differently: T maninder 25 mg by mouth every 6 hours as needed (for nausea). ), Disp: 10 tablet, Rfl: 0 - diphenhydrAMINE (BENADRYL) 25 mg capsule, Take 50 mg by mo uth every 6 hours as needed., Disp: , Rfl: - estradiol (ESTRACE) 2 mg tablet, Take 2 mg by mouth once d aily., Disp: , Rfl: - sertraline (ZOLOFT) 100 mg tablet, Take 1 tablet by mouth once daily., Disp: , Rfl: - QUEtiapine (SEROQUEL) 100 mg tablet, Take 1 tablet by mout h once daily., Disp: , Rfl: - pantoprazole DR (PROTONIX) 40 mg tablet, Take 1 tablet by mouth daily before breakfast. Take on empty stomach, 1/2 hr before meal. , Disp: 30 tablet, Rfl: 3 Social History Tobacco Use - Smoking status: Former Smoker Packs/day: 0.50 Years: 3.00 Pack years: 1.50 Types: Cigarettes Quit date: 01/12/2017 Years since quittin.3 - Smokeless tobacco: Never Used - Tobacco comment: Approx. 3 cigarettes daily-1 pack every w [place] Substance Use Topics - Alcohol use: Yes Comment: Occasional - Drug use: Never FAMILY HISTORY Problem Relation Age of Onset - Diabetes Maternal Grandmother - Diabetes Maternal Grandfather - Lipids Maternal Grandfather - Stroke Maternal Grandfather - Coronary Artery Disease Maternal Grandfather - Cataract Maternal Grandfather - Pancreatic Cancer Maternal Grandfather - Diabetes Paternal Grandmother - Diabetes Paternal Grandfather - Coronary Artery Disease Paternal Grandfather - Thyroid Mother unsure of details - Arthritis Mother fibromyalgia - Blood Disease Mother blood clots, unsure of details (aorta?) - Breast Cancer Maternal Aunt - Lipids Maternal Uncle - Coronary Artery Disease Maternal Uncle - other (ovarian ca) Other maternal cousin - Colon Cancer No Family History PAST SURGICAL HISTORY Procedure Laterality Date - CHOLECYSTECTOMY HX - COLONOSCOPY 05/08/2020 poor prep, stool in entire colon, int hemorrhoids, diverticu losis - DANDC, DIAG AND/OR THERAPEUTIC - EGD 05/08/2020 gastritis, duodenitis, mild esophagitis, 2 cm hiatal hernia - LIGATE FALLOPIAN TUBE - PAST SURGICAL HISTORY OF uterine ablation - PAST SURGICAL HISTORY OF cyst removal - REMOVAL OF OVARY(S) 2009 Oophorectomy right, still has left - REMOVAL OF OVARY(S) 01/2015 left removed - TOTAL ABDOM HYSTERECTOMY 08/31/06 Hysterectomy, MICHELINE ROS: All of the following reviewed and negative except as no arnie below: GENERAL: no fever, chills, sweats, weight loss, fatigue, gen eralized weakness HEENT: no headache, vision changes, eye discomfort, hearing change, ear discomfort, sinus pain, nasal discharge or congestion, oral lesions, soreness, dental problem NECK: no adenopathy, discomfort, change in ROM CHEST: no shortness of breath, dyspnea on exertion, wheezing , cough, sputum production or chest pain HEART: no chest pain, palpitations, syncope ABDOMEN: no nausea, vomiting, constipation, diarrhea, abdomi nal pain : no dysuria, urgency, frequency, history of stones, incon tinence NEURO: no confusion or alteration in consciousness, slurred speech, seizure, focal weakness EXTREMITIES: no new pain, edema, change in ROM HEME: no new adenopathy, bruises, petechiae PSYCH: no depression, anxiety, agitation PHYSICAL EXAMINATION: see below for new or abnormal findings BP 112/68 Pulse 63 Temp 36.2 ?C (97.2 ?F) (Oral) Resp 14 Ht 154.9 cm (5' 1) Wt 90.9 kg (200 lb 6.4 oz) LMP 08/10/20 06 SpO2 100% BMI 37.87 kg/m? BMI 37.87 kg/(m2) *NOTE: I washed my hands prior to examination GENERAL: well nourished and developed; no acute distress; al ert and oriented x 3; intact judgement and insight HEENT: no evidence of trauma; cranial nerves intact; eyes cl ear EOMI; no hearing deficits apparent; nasal passages unremarkable; thro at and mucous membranes clear NECK: supple without lymphadenopathy; no JVD; no thyromegaly CHEST: clear bilaterally to auscultation; normal chest movem ent; no rales or rhonchi HEART: regular rate and rhythm, normal S1 and S2, no murmurs , clicks, rubs, or gallops ABDOMEN: soft; Mildly distended; bowel sounds present; no he patomegaly; no splenomegaly; diffuse mild tenderness EXTREMITIES: no evidence of clubbing; no cyanosis; no deform ity; no joint effusion; no edema NEURO: cranial nerves intact; no focal deficits; no confusio n; no tremor; sensorium normal SKIN: no rash; no skin breakdown; no decubitus lesions HEME: no bruising; no adenopathy PSYCH: no evidence of depression; no anxiety; no agitation; no apparent hallucinations PAIN PSYCHIATRIC EXAM: GENERAL: alert, oriented to person, place, time JUDGMENT AND INSIGHT: intact APPEARANCE: neatly groomed DEMEANOR: coooperative, not hostile, mistrustful, preoccupie d, or demanding ACTIVITY: normal, not hyperactive or hypoactive, no tremors, tics EYE CONTACT: normal SPEECH: normal, rate, volume, articulation, coherence, spont aneity MOOD: normal, without overt sadness, grief, anxiety, appropr iate to situation IDEATION: normal and without suicidal or homicidal ideation MEMORY: intact ABNORMAL/NEW FINDINGS: NONE RADIOLOGY/DIAGNOSTICS: LABORATORY: CBC: Recent Labs 05/29/20428 WBC 5.88 RBC 3.97 HB 11.5 HCT 36.1 PLT 223 MCV 90.9 MCH 29.0 MPV 10.9 RDW 13.2 CMP: Recent Labs 05/29/20428 NA 138 K 3.4* CHLOR 104 CO2 23 BUN 6* CREAT 0.78 GLUC 88 CA 8.8 ANION 11 Heme: No results for input(s): RETICP, ABSRETIC, LD, BORIS, FE , TIBC, TRANSFERSAT in the last 24 hours. ASSESSMENT ACTIVE PROBLEM LIST Routine gynecological examination Family history of diabetes mellitus Calculus of Kidney Allergic rhinitis, cause unspecified Migraine Without Aura Smoker Impaired Fasting Glucose Benign Liver Cyst Ovarian Cyst Generalized Anxiety Disorder Reactive Depression Adjustment Insomnia Encounter for Screening for Cardiovascular Disorders Bilateral Low Back Pain Without Sciatica Pain in Left Hip Greater Trochanteric Bursitis Hydronephrosis of Left Kidney Hydroureter On Left Right Facial Numbness Right Upper Extremity Numbness Numbness of Right Lower Extremity Weakness of Right Upper Extremity Weakness of Right Lower Extremity Vision Blurred Lumbar Spine Pain Cervical Spine Pain Abnormal Mri, Lumbar Spine Hydroureter, Left Lung Nodules Intractable Nausea and Vomiting PLAN: Prior to admission, intermittent use of opiates, and conside red opiate naive on admission. Currently undergoing evaluation for abdominal pain, nausea a nd emesis, with prior diagnosis of idiopathic pancreatitis. EGD/EUS 05/28 lobular pancreas with no other mass/cysts noted . Mild gastritis. Biopsies pending patient remains on PPI Change Oxycodone 5-10 mg Every 6 hours as needed Recommending conservative use of opiates, at most, limited s upply of opiates at discharge. Disposition pending Maria Luisa Trejo MD basic metabolic panel on 2020-05-29 Anion gap [Moles/Vol] 11 9-18 mmol/L Normal 05-29-20 [facility] ([id number]) Comment: Performed By: #### LIP #### [facility] [address] [place], [place] [address] Calcium [Mass/Vol] 8.8 8.5-10.2 mg/dL Normal 05-29-2020 [facility] (20303) Comment: Performed By: #### LIP #### [facility] [address] [place], [place] [address] Chloride [Moles/Vol] 104 97-105 mmol/L Normal 0 [facility] ([id number]) Comment: Performed By: #### LIP #### [facility] [address] [place], [place] [address] CO2 Blood 23 22-30 mmol/L Normal 05-29-2020 [facility] ([id number]) Comment: Performed By: #### LIP #### [facility] [address] [place], [place] [address] Creatinine [Mass/Vol] 0.78 0.58-0.96 mg/dL Normal 05-29-20 [facility] (00 000) Comment: Performed By: #### LIP #### [facility] [address] [place], [place] [address] Glucose [Mass/Vol] 88 74-99 mg/dL Normal 05-29-2020 [facility] (53152) Comment: Result Comment: The [place] [employer] (ADA) provides guidance for cutoff values for fastin g glucose and random glucose. The ADA defines fasting as n o caloric intake for at least 8 hours.Fasting plasma glucose results between 100 to 125 mg/dL indicate increased risk for diabetes (prediabetes). Fasting plasma glucose resul ts greater than or equal to 126 mg/dL meet the criteria for diagnosis of diabetes. In the absence of unequivocal hyper glycemia, results should be confirmed by repeat testing. In a patient with classic symptoms of hyperglycemia or hyperglycemic crisis, random plasma glucose results great er than or equal to 200 mg/dL meet the criteria for diagno sis of diabetes. Reference: Standards of Medical Care in Diabetes 2016; [place] [employer]. Diabetes Care. 2016;39(Suppl 1). Performed By: #### LIP #### [facility] [address] [place], [place] [address] Potassium [Moles/Vol] 3.4 3.7-5.1 mmol/L Low 05-29-20 [facility] ([id number]) Comment: Performed By: #### LIP #### [facility] [address] [place] [address] Sodium [Moles/Vol] 138 136-144 mmol/L Normal 05-29-2020 [facility] ([id number]) Comment: Performed By: #### LIP #### [facility] [address] [place] [address] Urea nitrogen [Mass/Vol] 6 7-21 mg/dL Low 05-29 [facility] (40219) Comment: Performed By: #### LIP #### [facility] [address] [place] [address] surgical tissue exam on 2020-05-28 Surgical Tissue Test performed at [facility] Normal 05-28-2020 [facility] [address] [place] [address] ([id number]) NAME: SALLY MCGREGOR REQUESTING: JOHNNY WINN MD COPY TO: MARCELINO FLORES FINAL DIAGNOSIS: STOMACH, BIOPSY - GASTRIC 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 THERE IS NO EVIDENCE OF DYSPLASIA. IMMUNOHISTOC HEMICAL STAIN FOR HELICOBACTER PYLORI FAILED TO STAIN DEFINITE H. PY ZHOU-LIKE MICROORGANISMS. SEE COMMENT. COMMENT: Immunohistochemical stains for CD3 and CD20 demonst rated lamina propria T cells with a rare, small B cell aggregate, favor reactive. Eosinophils are present within the lamina propria as well as forming eosinophilic microabscesses. 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 Clinical correlation for other stigm sumanth of allergic disease may be useful. OPERATIVE PROCEDURE: EGD CLINICAL INFORMATION: Hepatic cyst, gastritis GROSS DESCRIPTION: Gastric bx Received in formalin labeled gastric biopsy is an irregular musa soft segment of tissue measuring 0.6 x 0.2 x 0.1 cm. The specimen is totally submitted in formalin in 1 cassette. LETICIA/bam TAYLOR M.D. PATHOLOGIST (Electronic signature on file) Signed out: 05/30/2020 16:28 PRINTED: 05/30/2020 Page 1 of 1 Comment: Performed By: #### LIP #### [facility] [address] [place] [address] pt ed on 2020-05-28 PT ED HNO ID: [id number] Normal 05-28-2020 [facility] Author: Flakita Ragland RN Center ([id number]) Service: Nursing Author Type: Registered Nurse Type: Patient Education Filed: 05/28/2020 1:23 PM Note Text: POST OP LEARNING RESPONSE INSTRUCTION PROVIDED TO: Patient METHOD OF INSTRUCTION: Verbal instruction PATIENT / FAMILY RESPONSE: Verbalizes understanding of: POST -PROCEDURE INSTRUCTIONS-Correct actions to take to reduce post procedur e complications FOLLOW-UP PLAN: Patient instructed to call with any further issues SUPPLEMENTAL MATERIAL: None REFERRAL (RECOMMENDATION): None Electronically Signed By: Flakita Ragland RN PT ED HNO ID: [id number] [place] 05-28-2020 [facility] Author: Flakita Ragland RN [place] ([id number]) Service: Nursing Author Type: Registered Nurse Type: Patient Education Filed: 05/28/2020 10:50 AM Note Text: PRE OP LEARNING ASSESSMENT PROCEDURE/SURGERY: GI PROCEDURES: EGD READINESS TO LEARN COGNITIVE ABILITY: Alert and oriented MOTIVATION TO LEARN: Interested FAMILY SUPPORT: Unable to assess - Family not present PATIENT LEARNS BEST BY: Verbal Instruction FACTORS AFFECTING LEARNING: None PHYSICAL LIMITATIONS AFFECTING LEARNING: None Electronically Signed By: Flakita Ragland RN progress on 2020-05 PROGRESS HNO ID: [id number] [place] 05-28-2020 [facility] Author: Vickie Beck [facility] Service: Hospital Medicine Medical Author Type: Resident Center Type: Progress Notes ([id number]) Filed: 05/28/2020 1:52 PM Note Text: Attestation signed by Marcelino Flores at 05/28/2020 5:0 8 PM (Updated) House Medicine Service Attending Attestation I personally saw and examined the patient. I reviewed the resident?s note. I agree with the resident?s assessment and plan unless otherwi se noted. 39 yo female with hx of allergic rhinitis, migraine headache , ureteronephrolithiasis, left hydronephrosis, anx iety, depression, and tobacco use admitted with abdominal pain, nausea, and NBNB emesis in the setting of known idiopathic pancreatitis and hepatic cyst. EGD showed mild gastritis, lobular pancreas, que stionable pancreatic divisum. Patient says she was told she will require MRI pancreas. Daniele n largely unchanged since admission, although improved with oral opioids. Will clarify need for further imaging with primary ga stroenterologist; has telehealth visit with hepatobiliary surgeon to discuss he patic lesion on 06/05. Opiates per pain management. Discharge planning. Marcelino Flores MD HOUSE MEDICINE SERVICE PROGRESS NOTE SERVICE DATE: May 28, 2020 SERVICE TIME: 1:53 PM NIGHT AND WEEKEND COVERAGE: From 6 AM to 5 PM: You may reach the House Medicine internal medicine physician currently assigned to this patient by findin g their pager number on the treatment team (they will be assigned as the i ntern or resident). It is the last four digits in the phone number be ginning with ([phone]). We encourage the use of [employer] Secure Chat. SUBJECTIVE HPI: 39 year old F PMHx idiopathic pancreatitis, hepatic cys ts presenting to the ED with intractable nausea and vomiting as well as RU Q abdominal pain for the past 3 days. States that she called her GI doct or Dr. Winn and he told her to come into the ED. She has a [facility] ed for 05/[address] Winn. Was given pain medications and 1L NS bolus in the ED. Hemodynamically stable in the ED. CT abdomen/pelvis showing known hepatic cysts, however no signs of pancreatitis. Lipase and WBC coun t normal. When evaluated by me, still endorsing RUQ abdominal pain and naus ea, but no vomiting since presentation to the ED. ? Interval Events: Pt complains of RUQ abdominal pain.Overnigh t she said she is having watery diarrhea. She denies any fever, nausea or v omiting. She said that her pain is better since yesterday on the current pain regimen where dose was increased. She was NPO overnight for endoscop ic USG. OBJECTIVE Medications: IV Infusions: - NaCl 0.9%, Last Rate: 100 mL/hr (05/27/20 1747) Scheduled: - sucralfate, 1 g, QID - QUEtiapine, 100 mg, DAILY - estradiol, 2 mg, DAILY - pantoprazole DR, 40 mg, BEFORE BREAKFAST DAILY - sertraline, 100 mg, DAILY - enoxaparin, 40 mg, DAILY PRN: - oxyCODONE IR, 10 mg, q 6 H PRN - diphenhydrAMINE, 50 mg, q 6 H PRN - albuterol, 2.5 mg, q 4 H PRN - promethazine, 25 mg, q 6 H PRN - acetaminophen, 650 mg, q 4 H PRN Vital Signs: BP 111/67 Pulse 72 Temp (Src) 97.9 (Oral) Resp 18 Ht 5' 1 (1.55m) Wt 200 lb 6.4 oz (90.9kg) SpO2 100% LMP 08/10/2006 BMI 37.88 kg/(m2). O2 Therapy: Room Air Physical Exam Performed: GENERAL: well appearing, alert and in no acute distress HEART: regular rate and rhythm, no murmer, gallop or rub, no rmal, S1, S2, no lifts, heaves, or thrills, PMI not displaced LUNGS: clear to percussion and auscultation and no rales ABDOMEN: Soft, RUQ tender, bowel sounds normal, no palpable organomegaly, no bruits. EXTREMITY: Normal exam of the extremities. No clubbing, cyan osis, or edema. Lines, Drains, and Airways Line Peripheral 05/25/20 0636 Left Antecubital 20 Gauge 2 days Assessment/Plan Problem List Intractable nausea and vomiting Intractable nausea and vomiting Associated with RUQ abdominal pain S/p cholecystectomy 1998 Hx of pancreatitis, however no evidence on labs or imaging CT abdomen/pelvis showing known hepatic cysts but otherwise fairly unremarkable NS @ 100 until po intake improves Continue supportive care and symptomatic relief Pain is still present. Pain medication dose adjusted. Pain M x on board. Pt NPO overnight , can resume diet once okay by GI Pt is scheduled for EGD with EUS +/- FNA scheduled for today Anti-emetics q4 prn Medication and Non-Pharmacologic VTE Prophylaxis/Anticoagula nts Anticoagulant AND Antiplatelet Medications (From admission, onward) Start Dose Route Frequency Ordered Stop 05/25/201999 enoxaparin 40 mg injection (LOVENOX) (Medical Risk Categories) 40 mg SUBCUTANEOUS DAILY 05/25/20 193 -- 05/25/201944 pneumatic compression stockings (fl,oh) VTE Prophylaxis: VTE prophylaxis appropriate GI Prophylaxis: Indicated due to chronic acid suppression th erapy as an outpatient Telemetry: no Disposition: Home Code Status: Not on file Plan of care discussed with: Provider, RN, Patient SIGNATURE: Vickie Srivastava MD PATIENT NAME: Sally shannon DATE: May 28, 2020 TIME: 1:53 PM operative no on OPERATIVE NO HNO ID: [id number] Normal 05-28-20 [facility] Author: [facility] Service: Gastroenterology ([id number]) Author Type: Physician Type: Operative Report Filed: 05/28/2020 1:07 PM Note Text: OPERATIVE/PROCEDURE REPORT LOG ID: [id number] Surgery/Procedure Date: 05/28/2020 Incision/Procedure Start Time: 12:32 PM Incision Close/Procedure End Time: 1:00 PM Surgeon(s)/Proceduralist(s) and Taximeter Repairer(s): Surgeon(s) and Role: * [facility] - Primary No Additional Staff Procedure(s): Endoscopic Ultrasound (EUS) Esophagogastroduodenoscopy (EGD) and biopsy Anesthesia: Monitored Anesthesia Care Brief History: Ms Mcgregor with chronic persistent abdominal pain associated with nausea, vomiting/ loose stools, one episode of pancreatitis of unclear etiology, cholecystectomy 1998 here for EGD/EUS for evaluation of pancreas. Procedure Details: The patient was placed in the left lateral decubitus positio n. A bite block was placed and medications administered as above. The Olympus gastroscope was used to intubate the oropharynx and esophagu s with ease. We proceeded down to the second part of the duodenum. Duodenum: coating of the mucosa with thick bile that was was hed aggressively to get good views. Mucosa of the bulb and desce nding portion appeared normal. Stomach: Adherent coating of the mucosa of the pyloric chann el, antrum, incisura, and body with whitish green material that was wash ed aggresivly to get good views. Scattered erythema in the stomach, diminu tive erosion and specks of heme consistent with mild to moderate gastriti s. Biopsies taken. Retroflexion showed normal cardia and fundus. Esophagus: Diaphragmatic hiatus at 38, gastroesophageal junc tion at 38, Z line at 38. Mucosa of the esophagus appeared normal. The scope was then withdrawn and the patient tolerated the p rocedure well. With the patient in the same position, the Olympus linear ec hoendoscope was then used to intubate the oropharynx and esophagus with ease. We proceeded down to the posterior aspect of the gastric body. The aorta and celiac artery takeoff were visualized. The splenic vasculatu re appeared normal. We then advanced the scope to the duodenal bulb. The CBD had normal caliber with no evidence of intraductal stones. A nor mal stack sign was seen with normal portal vein, pancreatic duct and CBD. T he scope was advanced to the second part of the duodenum. The ampullary v iew appeared normal. The uncinate process of the pancreas along with the SMA, aorta and SMV were normal. Pancreas: The pancreatic parenchyma was scanned carefully an d appeared diffusely lobular. There is no evidence of cystic structures , masses or chronic pancreatitis. Pancreatic duct was non dilated measur ed at 0.8 mm in the head and 0.7 mm in the body/tail. Dorsal and ventral PD appeared to take separate course and not uniting raising concern for verdugo creatic divisum. Common bile duct/Gall bladder: Common bile duct measured at 4.1 mm. Gall bladder surgically absent. Celiac take off: appeared normal. Left adrenal gland: Normal. Lymphadenopathy: No abnormal lymphadenopathy noted. One reac tive appearing hyperechoic lymph node, irregular in size, measuring 4mm X 8 mm in the portocaval region. The scope was then withdrawn and the patient tolerated the p rocedure well. Pre-Op/Pre-Procedure Diagnosis: Abdominal pain. One episode of idiopathic pancreatitis. Post-Op/Post-Procedure Diagnosis: Lobular pancreas with no other mass/cysts noted. Mild gastritis s/p biopsies. Specimens: see above EBL: None Complications: None Recommendations: Follow up pathology/cytology Continue PPI. nursing prog on NURSING HNO ID: [id number] Normal 05-28-2020 [employer] Author: Rupal (Rn) VIN Benitez General Service: Nursing Med ical Author Type: Registered Nurse Center Type: Nursing Progress Note () Filed: 05/28/2020 5:25 AM Note Text: Nursing Progress Note Patient Name: Sally Mcgregor Patient Location: / Attempted to draw AM labs. Was unsuccessful x 2 attempts. This note was completed by: Rupal Benitez RN hemogram on 2020-05 Erythrocyte distribution 13.2 11.7-14.4 % Normal 05-28 [facility] [facility] width (RBC) [Ratio] System (78026) Comment: Performed By: #### LIP #### [facility] [address] [place], [place] [address] Hematocrit (Bld) [Volume 32.2 34.1-44.9 % Low 05-28 [employer] [facility]] System (00 000) Comment: Performed By: #### LIP #### [facility] [address] [place], [place] [address] Hemoglobin (Bld) [Mass/Vol] 10.1 11.2-15.7 g/dL Low [facility] (00 000) Comment: Performed By: #### LIP #### [facility] [address] [place], [place] [address] MCH (RBC) [Entitic mass] 28.5 25.6-32.2 pg Normal 05-28 [facility] (00 000) Comment: Performed By: #### LIP #### [facility] [address] [place], [place] [address] MCHC (RBC) [Mass/Vol] 31.4 31.6-34.8 % Low 05-28-20 20 [employer] (68664) Comment: Performed By: #### LIP #### [facility] [address] [place], [place] [address] MCV (RBC) [Entitic vol] 90.7 79.4-94.8 fl Normal 2019 [facility] (00 000) Comment: Performed By: #### LIP #### [facility] [address] [place] [address] Platelet mean volume (Bld) 10.7 9.4-12.3 fl Normal [facility] [Entitic vol] System (21017) Comment: Performed By: #### LIP #### [facility] [address] [place] [id number] Platelets (Bld) [#/Vol] 186 182-369 thou/cmm Normal 2019 [facility] (00 000) Comment: Performed By: #### LIP #### [facility] [address] [place] [address] RBC (Bld) [#/Vol] 3.55 3.93-5.22 mil/cmm Low 05-28-2020 [facility] ([address]78) Comment: Performed By: #### LIP #### [facility] [address] [place] [address] RDW SD 43.3 36.4-46.3 fl Normal 05-28-2020 [facility] ([address]185) Comment: Performed By: #### LIP #### [facility] [address] [place] [id number] WBC (Bld) [#/Vol] 6.36 3.98-10.04 thou/cmm Normal 05-28-2020 [facility] (00 000) Comment: Performed By: #### LIP #### [facility] [address] [place] [address] consult on CONSULT HNO ID: [id number] Normal 05-28-2020 [facility] Author: Ramone Albarado [facility] Service: Pain Management ([id number]) Author Type: Physician Type: Consults Filed: 05/28/2020 9:09 AM Note Text: SALLY MCGREGOR 39 year old PAIN CONSULTATION: Abdominal pain, history of idiopathic verdugo creatitis. 24 HOUR COMFORT MEDICATIONS: Oxycodone 10 mg x 3 Quetiapine 100 mg daily [place] prescription history Shows occasional use of opiates, m ost recently oxycodone 5 mg, #12 filled on 02/18/2020, most recent triazola m 0.25 mg, #2 filled on 03/23/2020. No real concerns other than frequent sm all doses of opiates. Opiate naive on admission. Subjective HPI: 39-year-old female admitted on 05/25/2020 with complaint s of nausea, emesis, abdominal pain, with a prior history of idiopathic p ancreatitis and known to have hepatic cysts. CT of the abdomen/pelvis ob tained this admission showed stable hepatic cysts, and no evidence of ac mi'kmaq pancreatitis with normal lipase, and CBC. At this time, not experiencing any fever, chills, sweats, he matemesis, hematochezia, additional GI, , constitutional, pulmonary, or other symptoms. Current Facility-Administered Medications Medication Dose Route Frequency Provider Last Rate Last Dose - oxyCODONE IR 10 mg tab(s) (ROXICODONE) 10 mg ORAL q 6 H MT N Maggi (Res) MD Mark 10 mg at 05/27/202235 - sucralfate 1 g tab(s) (CARAFATE) 1 g ORAL QID Maggi (Res) MD Mark 1 g at 05/27/202005 - diphenhydrAMINE 50 mg (BENADRYL) 50 mg ORAL q 6 H PRN Christy (Res) MD Mark 50 mg at 05/27/202235 - QUEtiapine 100 mg tab(s) (SEROquel) 100 mg ORAL DAILY Christy rouse (Kiran) MD Mark 100 mg at 05/27/202006 - albuterol 2.5 mg /3 mL (0.083 %) 2.5 mg (PROVENTIL) 2.5 mg INHALATION q 4 H PRN Maggi (Kiran) MD Mark - estradiol 2 mg tab(s) (ESTRACE) 2 mg ORAL DAILY Maggi (Re s) MD Mark 2 mg at 05/27/20 08 - pantoprazole DR 40 mg tab(s) (PROTONIX) 40 mg ORAL BEFORE BREAKFAST DAILY Maggi (Res) MD Mark 40 mg at 05/27/20 0853 - sertraline 100 mg tab(s) (ZOLOFT) 100 mg ORAL DAILY Maggi (Res) MD Mark 100 mg at 05/27/20 0853 - enoxaparin 40 mg injection (LOVENOX) 40 mg SUBCUTANEOUS DA FEDERICO Maggi (Res) MD Mark - NaCl 0.9% iv infusion 100 mL/hr INTRAVENOUS CONTINUOUS Omer ssa (Res) MD Mark 100 mL/hr at 05/27/20 1747 100 mL/hr at 0 1747 - promethazine 25 mg tab(s) (PHENERGAN) 25 mg ORAL q 6 H PRN Maggi (Res) MD Mark 25 mg at 05/26/20 0411 - acetaminophen 650 mg tab(s) (TYLENOL) 650 mg ORAL q 4 H MT N Eduar (Res) Metry - hyoscyamine (LEVSIN) 0.125 mg tablet, Take 1 tablet by nick every 6 hours as needed., Disp: 60 tablet, Rfl: 1 - sucralfate (CARAFATE) 1 gram tablet, Take 1 tablet by mout h four times daily., Disp: 30 tablet, Rfl: 0 - promethazine (PHENERGAN) 25 mg tablet, Take 1 tablet by mo uth every 8 hours as needed (for nausea)., Disp: 10 tablet, Rfl: 0 - diphenhydrAMINE (BENADRYL) 25 mg capsule, Take 50 mg by mo uth every 6 hours as needed., Disp: , Rfl: - estradiol (ESTRACE) 2 mg tablet, Take 2 mg by mouth once d aily., Disp: , Rfl: - Bifidobacterium Infantis (ALIGN) 4 mg cap, Take 1 capsule by mouth once daily., Disp: 30 capsule, Rfl: 2 - sertraline (ZOLOFT) 100 mg tablet, Take 1 tablet by mouth once daily., Disp: , Rfl: - QUEtiapine (SEROQUEL) 100 mg tablet, Take 1 tablet by mout h once daily., Disp: , Rfl: - albuterol HFA (VENTOLIN HFA) 90 mcg/actuation inhaler, Inh mae 2 Puffs as instructed every 4 hours as needed., Disp: , Rfl: - pantoprazole DR (PROTONIX) 40 mg tablet, Take 1 tablet by mouth daily before breakfast. Take on empty stomach, 1/2 hr before meal. , Disp: 30 tablet, Rfl: 3 Social History Tobacco Use - Smoking status: Former Smoker Packs/day: 0.50 Years: 3.00 Pack years: 1.50 Types: Cigarettes Quit date: 01/12/2017 Years since quittin.3 - Smokeless tobacco: Never Used - Tobacco comment: Approx. 3 cigarettes daily-1 pack every w [place] Substance Use Topics - Alcohol use: Yes Comment: Occasional - Drug use: Never FAMILY HISTORY Problem Relation Age of Onset - Diabetes Maternal Grandmother - Diabetes Maternal Grandfather - Lipids Maternal Grandfather - Stroke Maternal Grandfather - Coronary Artery Disease Maternal Grandfather - Cataract Maternal Grandfather - Pancreatic Cancer Maternal Grandfather - Diabetes Paternal Grandmother - Diabetes Paternal Grandfather - Coronary Artery Disease Paternal Grandfather - Thyroid Mother unsure of details - Arthritis Mother fibromyalgia - Blood Disease Mother blood clots, unsure of details (aorta?) - Breast Cancer Maternal Aunt - Lipids Maternal Uncle - Coronary Artery Disease Maternal Uncle - other (ovarian ca) Other maternal cousin PAST SURGICAL HISTORY Procedure Laterality Date - CHOLECYSTECTOMY HX - COLONOSCOPY 05/08/2020 poor prep, stool in entire colon, int hemorrhoids, diverticu losis - DANDC, DIAG AND/OR THERAPEUTIC - EGD 05/08/2020 gastritis, duodenitis, mild esophagitis, 2 cm hiatal hernia - LIGATE FALLOPIAN TUBE - PAST SURGICAL HISTORY OF uterine ablation - PAST SURGICAL HISTORY OF cyst removal - REMOVAL OF OVARY(S) 2009 Oophorectomy right, still has left - REMOVAL OF OVARY(S) 01/2015 left removed - TOTAL ABDOM HYSTERECTOMY 08/31/06 Hysterectomy, MICHELINE ROS: All of the following reviewed and negative except as no arnie below: GENERAL: no fever, chills, sweats, weight loss, fatigue, gen eralized weakness HEENT: no headache, vision changes, eye discomfort, hearing change, ear discomfort, sinus pain, nasal discharge or congestion, oral lesions, soreness, dental problem NECK: no adenopathy, discomfort, change in ROM CHEST: no shortness of breath, dyspnea on exertion, wheezing , cough, sputum production or chest pain HEART: no chest pain, palpitations, syncope ABDOMEN: no nausea, vomiting, constipation, diarrhea, abdomi nal pain : no dysuria, urgency, frequency, history of stones, incon tinence NEURO: no confusion or alteration in consciousness, slurred speech, seizure, focal weakness EXTREMITIES: no new pain, edema, change in ROM HEME: no new adenopathy, bruises, petechiae PSYCH: no depression, anxiety, agitation PHYSICAL EXAMINATION: see below for new or abnormal findings BP 107/79 Pulse 66 Temp 36.4 ?C (97.5 ?F) (Oral) Resp 18 Ht 154.9 cm (5' 1) Wt 90.9 kg (200 lb 6.4 oz) LMP 08/10/20 06 SpO2 97% BMI 37.87 kg/m? BMI 37.87 kg/(m2) *NOTE: I washed my hands prior to examination GENERAL: well nourished and developed; no acute distress; al ert and oriented x 3; intact judgement and insight HEENT: no evidence of trauma; cranial nerves intact; eyes cl ear EOMI; no hearing deficits apparent; nasal passages unremarkable; thro at and mucous membranes clear NECK: supple without lymphadenopathy; no JVD; no thyromegaly CHEST: clear bilaterally to auscultation; normal chest movem ent; no rales or rhonchi HEART: regular rate and rhythm, normal S1 and S2, no murmurs , clicks, rubs, or gallops ABDOMEN: soft; Mildly distended; bowel sounds present; no he patomegaly; no splenomegaly; diffuse mild tenderness EXTREMITIES: no evidence of clubbing; no cyanosis; no deform ity; no joint effusion; no edema NEURO: cranial nerves intact; no focal deficits; no confusio n; no tremor; sensorium normal SKIN: no rash; no skin breakdown; no decubitus lesions HEME: no bruising; no adenopathy PSYCH: no evidence of depression; no anxiety; no agitation; no apparent hallucinations PAIN PSYCHIATRIC EXAM: GENERAL: alert, oriented to person, place, time JUDGMENT AND INSIGHT: intact APPEARANCE: neatly groomed DEMEANOR: coooperative, not hostile, mistrustful, preoccupie d, or demanding ACTIVITY: normal, not hyperactive or hypoactive, no tremors, tics EYE CONTACT: normal SPEECH: normal, rate, volume, articulation, coherence, spont aneity MOOD: normal, without overt sadness, grief, anxiety, appropr iate to situation IDEATION: normal and without suicidal or homicidal ideation MEMORY: intact ABNORMAL/NEW FINDINGS: NONE RADIOLOGY/DIAGNOSTICS: LABORATORY: CBC: Recent Labs 05/27/208 WBC 6.15 RBC 3.88* HB 11.3 HCT 35.9 PLT 197 MCV 92.5 MCH 29.1 MPV 10.6 RDW 13.3 CMP: Recent Labs 05/27/208 NA 140 K 3.5* CHLOR 106* CO2 24 BUN 7 CREAT 0.87 GLUC 82 CA 8.6 ANION 10 Heme: No results for input(s): RETICP, ABSRETIC, LD, BORIS, FE , TIBC, TRANSFERSAT in the last 24 hours. ASSESSMENT ACTIVE PROBLEM LIST Routine gynecological examination Family history of diabetes mellitus Calculus of Kidney Allergic rhinitis, cause unspecified Migraine Without Aura Smoker Impaired Fasting Glucose Benign Liver Cyst Ovarian Cyst Generalized Anxiety Disorder Reactive Depression Adjustment Insomnia Encounter for Screening for Cardiovascular Disorders Bilateral Low Back Pain Without Sciatica Pain in Left Hip Greater Trochanteric Bursitis Hydronephrosis of Left Kidney Hydroureter On Left Right Facial Numbness Right Upper Extremity Numbness Numbness of Right Lower Extremity Weakness of Right Upper Extremity Weakness of Right Lower Extremity Vision Blurred Lumbar Spine Pain Cervical Spine Pain Abnormal Mri, Lumbar Spine Hydroureter, Left Lung Nodules Intractable Nausea and Vomiting PLAN: Prior to admission, intermittent use of opiates, and conside red opiate naive on admission. Currently undergoing evaluation for abdominal pain, nausea a nd emesis, with prior diagnosis of idiopathic pancreatitis. Oxycodone 10 mg Every 6 hours as needed. She is satisfied w this. Recommending conservative use of opiates, at most, limited s upply of opiates at discharge. Ramone Gregorio MD basic metabolic panel on 2020-05-28 Anion gap [Moles/Vol] 8 9-18 mmol/L Low 05-28-20 [facility] ([id number]) Comment: Performed By: #### LIP #### [facility] [address] [place] [address] Calcium [Mass/Vol] 7.2 8.5-10.2 mg/dL Low 05-28-2020 [facility] ([id number]) Comment: Performed By: #### LIP #### [facility] [address] [place], [place] [address] Chloride [Moles/Vol] 111 97-105 mmol/L High 0 [facility] ([id number]) Comment: Performed By: #### LIP #### [facility] [address] [place], [place] [address] CO2 Blood 22 22-30 mmol/L Normal 05-28-2020 [facility] ([id number]) Comment: Performed By: #### LIP #### [facility] [address] [place], [place] [address] Creatinine [Mass/Vol] 0.69 0.58-0.96 mg/dL Normal 05-28-20 [facility] (00 000) Comment: Performed By: #### LIP #### [facility] [address] [place], [place] [address] Glucose [Mass/Vol] 73 74-99 mg/dL Low 05-28-2020 [facility] ([id number]) Comment: Result Comment: The [place] [employer] (ADA) provides guidance for cutoff values for fastin g glucose and random glucose. The ADA defines fasting as n o caloric intake for at least 8 hours.Fasting plasma glucose results between 100 to 125 mg/dL indicate increased risk for diabetes (prediabetes). Fasting plasma glucose resul ts greater than or equal to 126 mg/dL meet the criteria for diagnosis of diabetes. In the absence of unequivocal hyper glycemia, results should be confirmed by repeat testing. In a patient with classic symptoms of hyperglycemia or hyperglycemic crisis, random plasma glucose results great er than or equal to 200 mg/dL meet the criteria for diagno sis of diabetes. Reference: Standards of Medical Care in Diabetes 2016; [place] [employer]. Diabetes Care. 2016;39(Suppl 1). Performed By: #### LIP #### [facility] [address] [place], [place] [address] Potassium [Moles/Vol] 2.9 3.7-5.1 mmol/L Low 05-28-20 [facility] ([id number]) Comment: Performed By: #### LIP #### [facility] [address] [place], [place] [address] Sodium [Moles/Vol] 141 136-144 mmol/L Normal 05-28-2020 [facility] ([id number]) Comment: Performed By: #### LIP #### [facility] [address] [place], [place] [address] Urea nitrogen [Mass/Vol] 5 7-21 mg/dL Low 05-28 [facility] ([id number]) Comment: Performed By: #### LIP #### [facility] [address] [place], [place] [address] anes preop on 05-28 ANES PREOP HNO ID: [id number] Normal 05-28-2020 [facility] Author: Delon Florence [facility] Service: Anesthesiology ([id number]) Author Type: Physician Type: Anesthesia PreOp Filed: 05/28/2020 12:16 PM Note Text: ANESTHESIOLOGY DAY OF SURGERY NOTE SERVICE DATE: 05/28/2020 SERVICE TIME: 12:15 PM : 1980 Procedure(s) (LRB): ENDOSCOPY UPPER GI W/ ULTRASOUND-GUIDED INTRAMURAL OR TRANSM URAL FINE NEEDLE ASPIRATION/BIOPSY(S), AND ULTRASOUND EXAM ESOPHAGUS ( Left) Surgeon(s): Johnny Winn Estimated body mass index is 37.87 kg/m? as calculated from the following: Height as of this encounter: 154.9 cm (5' 1). Weight as of this encounter: 90.9 kg (200 lb 6.4 oz). Most recent hematocrit and potassium results: Hematocrit 32.2 05/28/2020 Potassium 2.9 05/28/2020 ANES DOS/PREOP NOTE: Vitals: 05/27/20 2005 05/28/20 0514 05/28/20 0727 05/28/20 1057 BP: 107/79 111/67 116/89 114/68 Pulse: 66 72 66 Resp: 18 18 16 16 Temp: 36.4 ?C (97.5 ?F) 36.6 ?C (97.9 ?F) 36.9 ?C (98.4 ?F) TempSrc: Oral Oral Oral SpO2: 97% 100% 100% 100% Weight: Height: ACTIVE PROBLEM LIST Routine gynecological examination Family history of diabetes mellitus Calculus of Kidney Allergic rhinitis, cause unspecified Migraine Without Aura Smoker Impaired Fasting Glucose Benign Liver Cyst Ovarian Cyst Generalized Anxiety Disorder Reactive Depression Adjustment Insomnia Encounter for Screening for Cardiovascular Disorders Bilateral Low Back Pain Without Sciatica Pain in Left Hip Greater Trochanteric Bursitis Hydronephrosis of Left Kidney Hydroureter On Left Right Facial Numbness Right Upper Extremity Numbness Numbness of Right Lower Extremity Weakness of Right Upper Extremity Weakness of Right Lower Extremity Vision Blurred Lumbar Spine Pain Cervical Spine Pain Abnormal Mri, Lumbar Spine Hydroureter, Left Lung Nodules Intractable Nausea and Vomiting PAST MEDICAL HISTORY Diagnosis Date - Allergic rhinitis, cause unspecified 05/17/2008spring and summer - Benign liver cyst 05/24/2010 CT scan at [facility] 11/2009 and 04/2010 showe 4 mm increase in size . No pain. No elevated LFTs on 03/11/2010. - Calculus of kidney 05/17/[address] Nicolas: Hospitalized age 20, and again later -- no procedures so far ([facility], most, 1995 [facility]) - Cancer (HCC) - Diverticulosis - Dysmenorrhea - Hemorrhoids - History of blood transfusion - Impaired fasting glucose 05/17/2008 Sugar 104 fasting, 04/21 - MIGRAINE 05/17/2008 Has used imitrex with good response; Keeps Vicodin on hand w hen needed; - Ovarian cyst 07/15/2012 - Pancreatitis - Smoker 05/17/2008 Started age 26, 1/2 a PPD PAST SURGICAL HISTORY Procedure Laterality Date - CHOLECYSTECTOMY HX - COLONOSCOPY 05/08/2020 poor prep, stool in entire colon, int hemorrhoids, diverticu losis - DANDC, DIAG AND/OR THERAPEUTIC - EGD 05/08/2020 gastritis, duodenitis, mild esophagitis, 2 cm hiatal hernia - LIGATE FALLOPIAN TUBE - PAST SURGICAL HISTORY OF uterine ablation - PAST SURGICAL HISTORY OF cyst removal - REMOVAL OF OVARY(S) 2009 Oophorectomy right, still has left - REMOVAL OF OVARY(S) 01/2015 left removed - TOTAL ABDOM HYSTERECTOMY 08/31/06 Hysterectomy, [facility] FAMILY HISTORY Problem Relation Age of Onset - Diabetes Maternal Grandmother - Diabetes Maternal Grandfather - Lipids Maternal Grandfather - Stroke Maternal Grandfather - Coronary Artery Disease Maternal Grandfather - Cataract Maternal Grandfather - Pancreatic Cancer Maternal Grandfather - Diabetes Paternal Grandmother - Diabetes Paternal Grandfather - Coronary Artery Disease Paternal Grandfather - Thyroid Mother unsure of details - Arthritis Mother fibromyalgia - Blood Disease Mother blood clots, unsure of details (aorta?) - Breast Cancer Maternal Aunt - Lipids Maternal Uncle - Coronary Artery Disease Maternal Uncle - other (ovarian ca) Other maternal cousin - Colon Cancer No Family History Social History: Social History Tobacco Use - Smoking status: Former Smoker Packs/day: 0.50 Years: 3.00 Pack years: 1.50 Types: Cigarettes Quit date: 01/12/2017 Years since quittin.3 - Smokeless tobacco: Never Used - Tobacco comment: Approx. 3 cigarettes daily-1 pack every w [place] Substance Use Topics - Alcohol use: Yes Comment: Occasional - Drug use: Never No current facility-administered medications on file prior t o encounter. Current Outpatient Medications on File Prior to Encounter Medication Sig - hyoscyamine (LEVSIN) 0.125 mg tablet Take 1 tablet by mout h every 6 hours as needed. - sucralfate (CARAFATE) 1 gram tablet Take 1 tablet by mouth four times daily. - promethazine (PHENERGAN) 25 mg tablet Take 1 tablet by nick th every 8 hours as needed (for nausea). - diphenhydrAMINE (BENADRYL) 25 mg capsule Take 50 mg by nick th every 6 hours as needed. - estradiol (ESTRACE) 2 mg tablet Take 2 mg by mouth once [place]. - Bifidobacterium Infantis (ALIGN) 4 mg cap Take 1 capsule b y mouth once daily. - sertraline (ZOLOFT) 100 mg tablet Take 1 tablet by mouth o nce daily. - QUEtiapine (SEROQUEL) 100 mg tablet Take 1 tablet by mouth once daily. - albuterol HFA (VENTOLIN HFA) 90 mcg/actuation inhaler Inha le 2 Puffs as instructed every 4 hours as needed. - pantoprazole DR (PROTONIX) 40 mg tablet Take 1 tablet by m outh daily before breakfast. Take on empty stomach, 1/2 hr before meal. Current Facility-Administered Medications Medication Dose Route Frequency Provider Last Rate Last Dose - [MAR Hold due to Transfer] oxyCODONE IR 10 mg tab(s) (GISELE CODONE) 10 mg ORAL q 6 H PRN Maggi (Res) MD Mark 10 mg at 05/28/20 0 519 - [MAR Hold due to Transfer] sucralfate 1 g tab(s) (CARAFATE ) 1 g ORAL QID Maggi (Res) MD Mark 1 g at 05/28/20918 - [MAR Hold due to Transfer] diphenhydrAMINE 50 mg (BENADRYL ) 50 mg ORAL q 6 H PRN Maggi Jolley) MD Mark 50 mg at 05/28/20 0519 - [MAR Hold due to Transfer] QUEtiapine 100 mg tab(s) (SEROq uel) 100 mg ORAL DAILY Maggi Jolley) MD Mark 100 mg at 05/27/202006 - [MAR Hold due to Transfer] albuterol 2.5 mg /3 mL (0.083 % ) 2.5 mg (PROVENTIL) 2.5 mg INHALATION q 4 H PRN Maggi vizcaino MD - [MAR Hold due to Transfer] estradiol 2 mg tab(s) (ESTRACE) 2 mg ORAL DAILY Maggi Flores MD 2 mg at 05/27/20 0855 - [MAR Hold due to Transfer] pantoprazole DR 40 mg tab(s) (P ROTONIX) 40 mg ORAL BEFORE BREAKFAST DAILY Maggi Jolley) MD Mark 40 mg at 05/27/20 0853 - [MAR Hold due to Transfer] sertraline 100 mg tab(s) (ZOLOF T) 100 mg ORAL DAILY Maggi Jolley) MD Mark 100 mg at 05/28/20918 - [MAR Hold due to Transfer] enoxaparin 40 mg injection (DONTRELL ENOX) 40 mg SUBCUTANEOUS DAILY Maggi Flores MD - [MAR Hold due to Transfer] NaCl 0.9% iv infusion 100 mL/hr INTRAVENOUS CONTINUOUS Maggi Jolley) MD Mark 100 mL/hr at 05/28/20 0 919 100 mL/hr at 05/28/20918 - [MAR Hold due to Transfer] promethazine 25 mg tab(s) (PHEN ERGAN) 25 mg ORAL q 6 H PRN Maggi Jolley) MD Mark 25 mg at 05/28/20 0 919 - [MAR Hold due to Transfer] acetaminophen 650 mg tab(s) (TY LENOL) 650 mg ORAL q 4 H PRN Eduar (Kiran) Johanna Allergies: ALLERGIES Allergen Reactions - Penicillins Rash - Cephalexin Itching - Chlorhexidine Rash Skin rash - Toradol [Ketorolac] Rash - Tramadol Rash - Asa [Salicylates] Other: See Comments ulcers - Contrast Dye [Iodin* Shortness of Breath - Ibuprofen GI Upset - Prednisone Other: See Comments makes agitated and mean DOS EXAM: Adequate NPO status: Yes Anesthetic risks, benefits, alternatives, personnel and cons ent discussed: Yes Patient agrees to proceed: Yes Previous Anesthesia: No history of adverse event. Airway Assessment: MP 2; Neck ROM: Full ROM without neurolog ic symptoms; Airway Evaluation: Short Neck and Thick neck Symptoms of Sleep Apnea: BMI > 35 Dentition: Poor dentition Additional Physical Exam: Lungs: Patient health status unchanged since recent history and physical. See history and physical for exam findings. Cardiac: Patient health status unchanged since recent histor y and physical. See history and physical for exam findings. Additional Pertinent Findings: N/A Blood Products: Not anticipated for this procedure. Anesthetic Plan: MAC with Sedation and Standard ASA Monitors Pain Management Plan: Parenteral or Oral ASA Class: 2 Other Medical Problems: None Chronic Beta Lizandro medication administered within 24 hours : N/A I have interviewed and examined the patient. I have reviewed the medical record and/or the pre-anesthesia evaluation, pertinent labs, and test results. Significant changes in the patient's condition since the His tory and Physical, not otherwise documented in primary service progre ss notes: No This contains updated information obtained within 48 hours o f Surgery/Procedure. SIGNATURE: Delon Duenas DO PATIENT NAME: Sally calwdell DATE: May 28, 2020 TIME: 12:15 PM CSN: [id number] anes post on 0 -14 ANES POST HNO ID: [id number] Normal 05-28-2020 [facility] Author: Delon Duenas [place] ([id number]) Service: Anesthesiology Author Type: Physician Type: Anesthesia PostOp Filed: 05/28/2020 1:54 PM Note Text: POST ANESTHESIA EVALUATION NOTE SERVICE DATE: 05/28/2020 SERVICE TIME: 1:54 PM : 1980 Vitals: 05/27/20 1635 05/27/20 2005 05/28/20 0514 05/28/20 0727 Temp: 36.5 ?C (97.7 ?F) 36.4 ?C (97.5 ?F) 36.6 ?C (97.9 ?F) 36.9 ?C (98.4 ?F) 05/28/2072605/28/20105605/28/20 1312 05/28/20 1327 BP: 116/89 114/68 95/83 115/79 05/27/20200405/28/2051305/28/2072605/28/20 1312 Pulse: 66 72 66 75 05/28/2051305/28/2072605/28/20105605/28/20 1327 Resp: 18 16 16 16 05/28/2051305/28/2072605/28/20105605/28/20 1327 SpO2: 100% 100% 100% 99% Validated Vital Signs: Yes POST ANES STATUS: No apparent anesthetic complications. The patient is appropriately hydrated with stable respiratory and cardiovas cular status. Patient has safe and adequate airway control. The patient man s appropriate pain relief and no significant post operative nausea or vomi ting. The patient has achieved baseline mental status. Intra-Operative Events: No Significant Anesthesia Events Further assessment by Anesthesia Service: None Other Remarks: SIGNATURE: Delon Duenas DO PATIENT NAME: Sally caldwell DATE: May 28, 2020 TIME: 1:54 PM PAGER/CONTACT #: [phone] progress on 2020-05 PROGRESS HNO ID: [id number] [place] 05-27-2020 [facility] Author: Vickie Srivastava General Service: Hospital Medicine Medical Author Type: Resident Center Type: Progress Notes ([id number]) Filed: 05/27/2020 4:19 PM Note Text: Attestation signed by Rob Valladares at 05/27/2020 4:51 PM Attending Note I evaluated the patient and personally participated in the guzman components. I agree with the resident's findings and plan as documen arnie and have discussed the case and management of the patient's care wi th the resident. Plan of care discussed with: Patient. Signature: Rob Valladares MD Date: May 27, 2020 Time: 4:50 PM HOUSE MEDICINE SERVICE PROGRESS NOTE SERVICE DATE: May 27, 2020 SERVICE TIME: 1:53 PM NIGHT AND WEEKEND COVERAGE: From 6 AM to 5 PM: You may reach the House Medicine internal medicine physician currently assigned to this patient by findin g their pager number on the treatment team (they will be assigned as the i ntern or resident). It is the last four digits in the phone number be ginning with ([phone]). We encourage the use of [employer] Secure Chat. SUBJECTIVE HPI: 39 year old F PMHx idiopathic pancreatitis, hepatic cys ts presenting to the ED with intractable nausea and vomiting as well as RU Q abdominal pain for the past 3 days. States that she called her GI doct or Dr. Winn and he told her to come into the ED. She has a scope [facility] ed for 05/[address] Winn. Was given pain medications and 1L NS bolus in the ED. Hemodynamically stable in the ED. CT abdomen/pelvis showing known hepatic cysts, however no signs of pancreatitis. Lipase and WBC coun t normal. When evaluated by me, still endorsing RUQ abdominal pain and naus ea, but no vomiting since presentation to the ED. ? Interval Events: Pt complains of RUQ abdominal pain. She den ies any fever, nausea or vomiting, or diarrhea. She said that her pain is u ncontrolled by the current regimen. Pt can tolerate current liquid diet for now. Her last BM was three days ago. She feels like her abdomen is distend ed and has discomfort. OBJECTIVE Medications: IV Infusions: - NaCl 0.9%, Last Rate: 100 mL/hr (05/26/201922) Scheduled: - sucralfate, 1 g, QID - QUEtiapine, 100 mg, DAILY - estradiol, 2 mg, DAILY - pantoprazole DR, 40 mg, BEFORE BREAKFAST DAILY - sertraline, 100 mg, DAILY - enoxaparin, 40 mg, DAILY PRN: - oxyCODONE IR, 10 mg, q 6 H PRN - diphenhydrAMINE, 50 mg, q 6 H PRN - albuterol, 2.5 mg, q 4 H PRN - promethazine, 25 mg, q 6 H PRN - acetaminophen, 650 mg, q 4 H PRN Vital Signs: BP 119/74 Pulse 63 Temp (Src) 97.3 (Oral) Resp 19 Ht 5' 1 (1.55m) Wt 200 lb 6.4 oz (90.9kg) SpO2 99% LMP 1 10/10/2005 BMI 37.88 kg/(m2). O2 Therapy: Room Air Physical Exam Performed: GENERAL: well appearing, alert and in no acute distress HEART: regular rate and rhythm, no murmer, gallop or rub, no rmal, S1, S2, no lifts, heaves, or thrills, PMI not displaced LUNGS: clear to percussion and auscultation and no rales ABDOMEN: Soft, RUQ tender, bowel sounds normal, no palpable organomegaly, no bruits. EXTREMITY: Normal exam of the extremities. No clubbing, cyan osis, or edema. Lines, Drains, and Airways Line Peripheral 05/25/20 0636 Left Antecubital 20 Gauge 2 days Assessment/Plan Problem List Intractable nausea and vomiting Intractable nausea and vomiting Associated with RUQ abdominal pain Hx of pancreatitis, however no evidence on labs or imaging CT abdomen/pelvis showing known hepatic cysts but otherwise fairly unremarkable NS @ 100 until po intake improves Can advance diet if patient feels comfortable Continue supportive care and symptomatic relief Pain is still present. Pain medication dose adjusted. Pt is scheduled for ercp on Thursday Anti-emetics q4 prn Medication and Non-Pharmacologic VTE Prophylaxis/Anticoagula nts Anticoagulant AND Antiplatelet Medications (From admission, onward) Start Dose Route Frequency Ordered Stop 05/25/201999 enoxaparin 40 mg injection (LOVENOX) (Medical Risk Categories) 40 mg SUBCUTANEOUS DAILY 05/25/201935 -- 05/25/201944 pneumatic compression stockings (ks,ia) VTE Prophylaxis: VTE prophylaxis appropriate GI Prophylaxis: Indicated due to chronic acid suppression th erapy as an outpatient Telemetry: no Disposition: Home Code Status: Not on file Plan of care discussed with: Provider, RN, Patient SIGNATURE: Vickie Srivastava MD PATIENT NAME: Sally shannon DATE: May 27, 2020 TIME: 1:53 PM plan of care on PLAN OF CARE HNO ID: [id number] Normal 05-27-20 [facility] Author: Joe Romero) [facility] Service: Gastroenterology ([id number]) Author Type: Physician Taximeter Repairer Type: Plan of Care Filed: 05/27/2020 1:17 PM Note Text: GI CONSULT PROGRESS NOTE SERVICE DATE: 05/27/2020 SERVICE TIME: 1:15 PM CONSULTING SERVICE: Gastroenterology PLAN: - Orders placed for EGD/EUS - based on case-load; procedure may be on Thursday as was lyndon nguyen scheduled - NPO at midnight if not discharged - Continue pain and nausea control - Replace electrolytes - PT/INR with morning labs MEDICATIONS: Current Facility-Administered Medications Medication Dose Route Frequency - sucralfate 1 g tab(s) (CARAFATE) 1 g ORAL QID - diphenhydrAMINE 50 mg (BENADRYL) 50 mg ORAL q 6 H PRN - QUEtiapine 100 mg tab(s) (SEROquel) 100 mg ORAL DAILY - albuterol 2.5 mg /3 mL (0.083 %) 2.5 mg (PROVENTIL) 2.5 mg INHALATION q 4 H PRN - estradiol 2 mg tab(s) (ESTRACE) 2 mg ORAL DAILY - pantoprazole DR 40 mg tab(s) (PROTONIX) 40 mg ORAL BEFORE BREAKFAST DAILY - sertraline 100 mg tab(s) (ZOLOFT) 100 mg ORAL DAILY - enoxaparin 40 mg injection (LOVENOX) 40 mg SUBCUTANEOUS DA FEDERICO - NaCl 0.9% iv infusion 100 mL/hr INTRAVENOUS CONTINUOUS - promethazine 25 mg tab(s) (PHENERGAN) 25 mg ORAL q 6 H PRN - acetaminophen 650 mg tab(s) (TYLENOL) 650 mg ORAL q 4 H MT N - oxyCODONE IR 10 mg tab(s) (ROXICODONE) 10 mg ORAL q 6 H MT N Objective PHYSICAL EXAM: VITALS:BP 119/74 Pulse 63 Temp 36.3 ?C (97.3 ?F) (Oral) Resp 19 Ht 154.9 cm (5' 1) Wt 90.9 kg (200 lb 6.4 oz) LMP SpO2 99% BMI 37.87 kg/m? DATA: Diagnostic tests reviewed for today's visit: Most recent labs and imaging results. SIGNATURE: Joe Maldonado PA-C PATIENT NAME: Sally Mcgregor DATE: May 27, 2020 TIME: 1:15 PM PAGER/CONTACT #: [employer] Coordinator Pager hemogram on 2020-05 Erythrocyte distribution 13.3 11.7-14.4 % Normal 05-27 [facility] width (RBC) [Ratio] System ([id number]) Comment: Performed By: #### LIP #### [facility] [address] [place], [place] [address] Hematocrit (Bld) [Volume 35.9 34.1-44.9 % Normal 05-27 [facility] fraction] System (00 000) Comment: Performed By: #### LIP #### [facility] [address] [place], [place] [address] Hemoglobin (Bld) 11.3 11.2-15.7 g/dL Normal 05-27-2020 [employer] [facility] [Mass/Vol] System (0 0000) Comment: Performed By: #### LIP #### [facility] [address] [place], [place] [address] MCH (RBC) [Entitic mass] 29.1 25.6-32.2 pg Normal 05-27 [employer] (00 000) Comment: Performed By: #### LIP #### [facility] [address] [place], [place] [address] MCHC (RBC) [Mass/Vol] 31.5 31.6-34.8 % Low 05-27-20 20 [employer] (45111) Comment: Performed By: #### LIP #### [address] [address] MCV (RBC) [Entitic vol] 92.5 79.4-94.8 fl Normal 2019 [facility] (00 000) Comment: Performed By: #### LIP #### [facility] [address] [place], [place] [address] Platelet mean volume (Bld) 10.6 9.4-12.3 fl Normal [facility] [Entitic vol] System ([address]054) Comment: Performed By: #### LIP #### [facility] [address] [place], [place] [address] Platelets (Bld) [#/Vol] 197 182-369 thou/cmm Normal 2019 [facility] (00 000) Comment: Performed By: #### LIP #### [facility] [address] [place] [id number] RBC (Bld) [#/Vol] 3.88 3.93-5.22 mil/cmm Low 05-27-2020 [facility] ([address]75) Comment: Performed By: #### LIP #### [facility] [address] [place] [address] RDW SD 44.6 36.4-46.3 fl Normal 05-27-2020 [facility] (11976) Comment: Performed By: #### LIP #### [facility] [address] [place], [place] [address] WBC (Bld) [#/Vol] 6.15 3.98-10.04 thou/cmm Normal 05-27-2020 [facility] (00 000) Comment: Performed By: #### LIP #### [facility] [address] [place] [id number] basic metabolic panel on 2020-05-27 Anion gap [Moles/Vol] 10 9-18 mmol/L Normal 05-27-20 [facility] (39903) Comment: Performed By: #### LIP #### [facility] [address] [place] [id number] Calcium [Mass/Vol] 8.6 8.5-10.2 mg/dL Normal 05-27-2020 [facility] (82957) Comment: Performed By: #### LIP #### [facility] [address] [place] [id number] Chloride [Moles/Vol] 106 97-105 mmol/L High 0 [facility] (08405) Comment: Performed By: #### LIP #### [facility] [address] [place], [place] [address] CO2 Blood 24 22-30 mmol/L Normal 05-27-2020 [facility] (80225) Comment: Performed By: #### LIP #### [facility] [address] [place], [place] [address] Creatinine [Mass/Vol] 0.87 0.58-0.96 mg/dL Normal 05-27-20 [facility] (00 000) Comment: Performed By: #### LIP #### [facility] [address] [place], [place] [address] Glucose [Mass/Vol] 82 74-99 mg/dL Normal 05-27-2020 [facility] (27684) Comment: Result Comment: The [place] Diabetes Association (ADA) provides guidance for cutoff values for fastin g glucose and random glucose. The ADA defines fasting as n o caloric intake for at least 8 hours.Fasting plasma glucose results between 100 to 125 mg/dL indicate increased risk for diabetes (prediabetes). Fasting plasma glucose resul ts greater than or equal to 126 mg/dL meet the criteria for diagnosis of diabetes. In the absence of unequivocal hyper glycemia, results should be confirmed by repeat testing. In a patient with classic symptoms of hyperglycemia or hyperglycemic crisis, random plasma glucose results great er than or equal to 200 mg/dL meet the criteria for diagno sis of diabetes. Reference: Standards of Medical Care in Diabetes 2016; [place] [employer]. Diabetes Care. 2016;39(Suppl 1). Performed By: #### LIP #### [facility] [address] [place], [place] [address] Potassium [Moles/Vol] 3.5 3.7-5.1 mmol/L Low 05-27-20 20 [facility] (11839) Comment: Performed By: #### LIP #### [facility] [address] [place], [place] [address] Sodium [Moles/Vol] 140 136-144 mmol/L Normal 05-27-2020 [facility] (38026) Comment: Performed By: #### LIP #### [facility] [address] [place], [place] [address] Urea nitrogen [Mass/Vol] 7 7-21 mg/dL Normal 05-27 [facility] (30931) Comment: Performed By: #### LIP #### [facility] [address] [place], [place] [address] progress on 2020-05 PROGRESS HNO ID: [id number] Normal 05-26-2020 [employer] Author: Vickie Srivastava [facility] Service: Hospital Medicine Medical Author Type: Resident Center Type: Progress Notes ([id number]) Filed: 05/26/2020 2:11 PM Note Text: Attestation signed by Oh Arreaga at 05/26/2020 2:23 PM Attending Note I personally saw and examined the patient on 05/26/20. I rev iewed the resident's note. I agree with the resident's assessment and plan unless otherwise noted. Signature: Oh Arreaga DO Date: 05/26/2020 Time: 2:23 PM Pager: [phone] HOUSE MEDICINE SERVICE PROGRESS NOTE SERVICE DATE: May 26, 2020 SERVICE TIME: 1:53 PM NIGHT AND WEEKEND COVERAGE: From 6 AM to 5 PM: You may reach the House Medicine internal medicine physician currently assigned to this patient by findin g their pager number on the treatment team (they will be assigned as the i ntern or resident). It is the last four digits in the phone number be ginning with ([phone]). We encourage the use of [employer] Secure Chat. SUBJECTIVE HPI: 39 year old F PMHx idiopathic pancreatitis, hepatic cys ts presenting to the ED with intractable nausea and vomiting as well as RU Q abdominal pain for the past 3 days. States that she called her GI doct or Dr. Winn and he told her to come into the ED. She has a scope [facility] ed for 05/[address] Winn. Was given pain medications and 1L NS bolus in the ED. Hemodynamically stable in the ED. CT abdomen/pelvis showing known hepatic cysts, however no signs of pancreatitis. Lipase and WBC coun t normal. When evaluated by me, still endorsing RUQ abdominal pain and naus ea, but no vomiting since presentation to the ED. ? Interval Events: Pt is sitting in a chair. She denies any na usea or vomiting, or diarrhea. She does have some abdominal pain hermilo t is controlled on the pain medications. OBJECTIVE Medications: IV Infusions: - NaCl 0.9%, Last Rate: 100 mL/hr (05/26/20 0411) Scheduled: - sucralfate, 1 g, QID - QUEtiapine, 100 mg, DAILY - estradiol, 2 mg, DAILY - pantoprazole DR, 40 mg, BEFORE BREAKFAST DAILY - sertraline, 100 mg, DAILY - enoxaparin, 40 mg, DAILY PRN: - diphenhydrAMINE, 50 mg, q 6 H PRN - albuterol, 2.5 mg, q 4 H PRN - promethazine, 25 mg, q 6 H PRN - oxyCODONE IR, 5 mg, q 6 H PRN - acetaminophen, 650 mg, q 4 H PRN Vital Signs: BP 96/57 Pulse 61 Temp (Src) 97.3 (Oral) Resp 16 Ht 5' 1 (1.55m) Wt 200 lb 6.4 oz (90.9kg) SpO2 97% LMP 1 10/10/2005 BMI 37.88 kg/(m2). O2 Therapy: Room Air Physical Exam Performed: GENERAL: well appearing, alert and in no acute distress HEART: regular rate and rhythm, no murmer, gallop or rub, no rmal, S1, S2, no lifts, heaves, or thrills, PMI not displaced LUNGS: clear to percussion and auscultation and no rales ABDOMEN: Soft,non-tender, bowel sounds normal, no palpable o rganomegaly, no bruits. EXTREMITY: Normal exam of the extremities. No clubbing, cyan osis, or edema. Lines, Drains, and Airways Line Peripheral 05/25/20 0636 Left Antecubital 20 Gauge 1 day Assessment/Plan Problem List Intractable nausea and vomiting Intractable nausea and vomiting Associated with RUQ abdominal pain Hx of pancreatitis, however no evidence on labs or imaging CT abdomen/pelvis showing known hepatic cysts but otherwise fairly unremarkable NS @ 100 until po intake improves Continue supportive care and symptomatic relief Pain is controlled on current pain regimen Pt is scheduled for ercp on Thursday as outpatient a/c GI Anti-emetics q4 prn Medication and Non-Pharmacologic VTE Prophylaxis/Anticoagula nts Anticoagulant AND Antiplatelet Medications (From admission, onward) Start Dose Route Frequency Ordered Stop 05/25/201999 enoxaparin 40 mg injection (LOVENOX) (Medical Risk Categories) 40 mg SUBCUTANEOUS DAILY 05/25/20 193 -- 05/25/201944 pneumatic compression stockings (ks,ia) VTE Prophylaxis: VTE prophylaxis appropriate GI Prophylaxis: Indicated due to chronic acid suppression th erapy as an outpatient Telemetry: no Disposition: Home Code Status: Not on file Plan of care discussed with: Provider, RN, Patient SIGNATURE: Vickie Srivastava MD PATIENT NAME: Sally shannon DATE: May 26, 2020 TIME: 1:53 PM hemogram on 2020-05 Erythrocyte distribution 13.3 11.7-14.4 % Normal 05-26 [facility] width (RBC) [Ratio] System (91644) Comment: Performed By: #### CBC1 #### [address] [address] Hematocrit (Bld) [Volume 33.7 34.1-44.9 % Low 05-26 [facility] fraction] System (00 000) Comment: Performed By: #### CBC1 #### [address] [address] Hemoglobin (Bld) [Mass/Vol] 10.8 11.2-15.7 g/dL Low [facility] System (00 000) Comment: Performed By: #### CBC1 #### [facility] [address] [place], [place] [address] MCH (RBC) [Entitic mass] 29.3 25.6-32.2 pg Normal 05-26 [facility] (00 000) Comment: Performed By: #### CBC1 #### [facility] [address] [place], [place] [address] MCHC (RBC) [Mass/Vol] 32.0 31.6-34.8 % Normal 05-26-20 20 [facility] (65618) Comment: Performed By: #### CBC1 #### [facility] [address] [place], [place] [address] MCV (RBC) [Entitic vol] 91.3 79.4-94.8 fl Normal 2019 [facility] (00 000) Comment: Performed By: #### CBC1 #### [facility] [address] [place], [place] [address] Platelet mean volume (Bld) 10.8 9.4-12.3 fl Normal [facility] [Entitic vol] System (94523) Comment: Performed By: #### CBC1 #### [facility] [address] [place], [place] [address] Platelets (Bld) [#/Vol] 226 182-369 thou/cmm Normal 2019 [facility] (00 000) Comment: Performed By: #### CBC1 #### [facility] [address] [place], [place] [address] RBC (Bld) [#/Vol] 3.69 3.93-5.22 mil/cmm Low 05-26-2020 [facility] (66369) Comment: Performed By: #### CBC1 #### [facility] [address] [place], [place] [address] RDW SD 44.3 36.4-46.3 fl Normal 05-26-2020 [facility] (52882) Comment: Performed By: #### CBC1 #### [facility] [address] [place], [place] [address] WBC (Bld) [#/Vol] 9.78 3.98-10.04 thou/cmm Normal 05-26-2020 [facility] (00 000) Comment: Performed By: #### CBC1 #### [facility] [address] [place], [place] [address] coronavirus 2019 on 2020-05-26 COVID 19 Result SECURITY CHECKER Negative CORNESonya Normal 05-26-2020 [facility] (53642) Comment: Result Comment: Negative for COVID19 (SARS CoV2) by PCR. This test was developed and its performance characteristics determined by [facility] [place]. This test has bee n authorized by FDA under an Emergency Use Authorization (EUA). This test has been validated in accordance with the FDA's Guidance Document Policy for Diagnostics Test ing in Laboratories Certified to Perform High Complexity Testing under CLI A prior to Emergency use Authorization for Coronavirus Disease 2019 dur ing the Public Health Emergency issued on November 12, 2019. Performing Laboratory: [facility] [address] [place] [address] Performed By: #### CD19X ### # [address] [address] consult on CONSULT HNO ID: [id number] Normal 05-26-2020 [facility] Author: Joe Romero) [facility] Service: Gastroenterology ([id number]) Author Type: Physician Taximeter Repairer Type: Consults Filed: 05/26/2020 11:22 AM Note Text: INITIAL CONSULT GASTROENTEROLOGY SERVICE DATE: 05/26/2020 SERVICE TIME: 11:10 AM Opinion/advice regarding: Nausea, Vomiting, Abdominal Pain Subjective HPI: 39 year old woman who presents with nausea, vomiting, a nd abdominal pain. PMHx is significant for Idiopathic Pancreatitis and Hepatic Cysts who presented to the ED with nausea, vomiting, abdominal pain fo r 3-days. Sees Dr. Winn and has EGD with EUS +/- FNA scheduled for y 05/29. She states she was instructed to go to the ED after calling his office. CT abdomen/pelvis was obtained and revelaed known hepatic cysts without signs of acute pancreatitis. Lipase and WBC count were normal. Denies any hematemesis, hematochezia, change in bowel habits , night sweats, weight loss or yellowing of the skin or eyes. PAST MEDICAL HISTORY Diagnosis Date - Allergic rhinitis, cause unspecified 05/17/2008 Spring and summer - Benign liver cyst 05/24/2010 CT scan at [facility] 11/2009 and 04/2010 showe 4 mm increase in size . No pain. No elevated LFTs on 03/11/2010. - Calculus of kidney 05/17/[address] Nicolas: Hospitalized age 20, and again later -- no procedures so far [facility]) - Cancer (HCC) - Diverticulosis - Dysmenorrhea - Hemorrhoids - History of blood transfusion - Impaired fasting glucose 05/17/2008 Sugar 104 fasting, 04/21 - MIGRAINE 05/17/2008 Has used imitrex with good response; Keeps Vicodin on hand w hen needed; - Ovarian cyst 07/15/2012 - Pancreatitis - Smoker 05/17/2008 Started age 26, 1/2 a PPD PAST SURGICAL HISTORY Procedure Laterality Date - CHOLECYSTECTOMY HX - COLONOSCOPY 05/08/2020 poor prep, stool in entire colon, int hemorrhoids, diverticu losis - DANDC, DIAG AND/OR THERAPEUTIC - EGD 05/08/2020 gastritis, duodenitis, mild esophagitis, 2 cm hiatal hernia - LIGATE FALLOPIAN TUBE - PAST SURGICAL HISTORY OF uterine ablation - PAST SURGICAL HISTORY OF cyst removal - REMOVAL OF OVARY(S) 2009 Oophorectomy right, still has left - REMOVAL OF OVARY(S) 01/2015 left removed - TOTAL ABDOM HYSTERECTOMY 08/31/06 Hysterectomy, [facility] FAMILY HISTORY Problem Relation Age of Onset - Diabetes Maternal Grandmother - Diabetes Maternal Grandfather - Lipids Maternal Grandfather - Stroke Maternal Grandfather - Coronary Artery Disease Maternal Grandfather - Cataract Maternal Grandfather - Pancreatic Cancer Maternal Grandfather - Diabetes Paternal Grandmother - Diabetes Paternal Grandfather - Coronary Artery Disease Paternal Grandfather - Thyroid Mother unsure of details - Arthritis Mother fibromyalgia - Blood Disease Mother blood clots, unsure of details (aorta?) - Breast Cancer Maternal Aunt - Lipids Maternal Uncle - Coronary Artery Disease Maternal Uncle - other (ovarian ca) Other maternal cousin Social History Tobacco Use - Smoking status: Former Smoker Packs/day: 0.50 Years: 3.00 Pack years: 1.50 Types: Cigarettes Quit date: 01/12/2017 Years since quittin.3 - Smokeless tobacco: Never Used - Tobacco comment: Approx. 3 cigarettes daily-1 pack every w [place] Substance Use Topics - Alcohol use: Yes Comment: Occasional - Drug use: Never MEDICATIONS: Prior to Admission Medications: hyoscyamine (LEVSIN) 0.125 mg tablet Take 1 tablet by mouth every 6 hours as needed. sucralfate (CARAFATE) 1 gram tablet Take 1 tablet by mouth f our times daily. promethazine (PHENERGAN) 25 mg tablet Take 1 tablet by mouth every 8 hours as needed (for nausea). diphenhydrAMINE (BENADRYL) 25 mg capsule Take 50 mg by mouth every 6 hours as needed. estradiol (ESTRACE) 2 mg tablet Take 2 mg by mouth once kehinde y. Bifidobacterium Infantis (ALIGN) 4 mg cap Take 1 capsule by mouth once daily. sertraline (ZOLOFT) 100 mg tablet Take 1 tablet by mouth onc e daily. QUEtiapine (SEROQUEL) 100 mg tablet Take 1 tablet by mouth o nce daily. albuterol HFA (VENTOLIN HFA) 90 mcg/actuation inhaler Inhale 2 Puffs as instructed every 4 hours as needed. pantoprazole DR (PROTONIX) 40 mg tablet Take 1 tablet by nick th daily before breakfast. Take on empty stomach, 1/2 hr before meal. Current Facility-Administered Medications Medication Dose Route Frequency - sucralfate 1 g tab(s) (CARAFATE) 1 g ORAL QID - diphenhydrAMINE 50 mg (BENADRYL) 50 mg ORAL q 6 H PRN - QUEtiapine 100 mg tab(s) (SEROquel) 100 mg ORAL DAILY - albuterol 2.5 mg /3 mL (0.083 %) 2.5 mg (PROVENTIL) 2.5 mg INHALATION q 4 H PRN - estradiol 2 mg tab(s) (ESTRACE) 2 mg ORAL DAILY - pantoprazole DR 40 mg tab(s) (PROTONIX) 40 mg ORAL BEFORE BREAKFAST DAILY - sertraline 100 mg tab(s) (ZOLOFT) 100 mg ORAL DAILY - enoxaparin 40 mg injection (LOVENOX) 40 mg SUBCUTANEOUS DA FEDERICO - NaCl 0.9% iv infusion 100 mL/hr INTRAVENOUS CONTINUOUS - promethazine 25 mg tab(s) (PHENERGAN) 25 mg ORAL q 6 H PRN - oxyCODONE IR 5 mg tab(s) (ROXICODONE) 5 mg ORAL q 6 H PRN - acetaminophen 650 mg tab(s) (TYLENOL) 650 mg ORAL q 4 H MT N ALLERGIES Allergen Reactions - Penicillins Rash - Cephalexin Itching - Chlorhexidine Rash Skin rash - Toradol [Ketorolac] Rash - Tramadol Rash - Asa [Salicylates] Other: See Comments ulcers - Contrast Dye [Iodin* Shortness of Breath - Ibuprofen GI Upset - Prednisone Other: See Comments makes agitated and mean GI SPECIFIC REVIEW OF SYSTEMS: See HPI OTHER ROS: Negative Except For HPI Objective PHYSICAL EXAM: BP 96/57 Pulse 61 Temp 36.3 ?C (97.3 ?F) (Oral) Resp 1 6 Ht 154.9 cm (5' 1) Wt 90.9 kg (200 lb 6.4 oz) LMP 08/10/20 06 SpO2 97% BMI 37.87 kg/m? GENERAL- AAO x 3, mild distress after entering room HEENT: Moist mucus membranes, no scleral icterus, EOM grossl y intact LUNGS: Clear to auscultation anterior bilateral CARDIAC: S1, S2, no murmur gallop or rub appreciated ABDOMEN: Soft, mildly-tender without guarding or rigidity in epigastric region and RUQ, normoactive bowel sounds EXTREMITIES: No pedal edema bilateral Skin: No obvious lesions or deformities appreciated, skin no n-jaundiced DATA: Diagnostic Tests Reviewed for Today's Visit: Most recent labs and imaging results. Impression/Recommendations 1. Nausea and Vomiting - IV FLuids until PO intake improves - Clear liquids --> advance as tolerated - Antiemetics q4-6hrs PRN for nausea 2. Abdominal Pain in setting of known idiopathic pancreatiti s and hepatic cyst - Consider PO pain control once tolerating diet - Can consider breakthrough pain control with morphine or fe ntanyl - Consider pain management consult if unable to control pain - Will discuss with staff on scheduling initial procedure as an inpatient. Will update this decision Thursday. Thank you for consulting us in the care of this patient. GI will continue to follow. SIGNATURE: Joe Maldonado PA-C PATIENT NAME: Sally Mcgregor DATE: May 26, 2020 TIME: 11:10 AM PAGER/CONTACT #: [phone] After 3PM please use on-call paging system basic metabolic panel on 2020-05-26 Anion gap [Moles/Vol] 9 9-18 mmol/L Normal 05-26-20 20 [facility] (35783) Comment: Performed By: #### BMP #### [facility] [address] [place], [place] [address] Calcium [Mass/Vol] 9.0 8.5-10.2 mg/dL Normal 05-26-2020 [facility] (41514) Comment: Performed By: #### BMP #### [facility] [address] [place], [place] [address] Chloride [Moles/Vol] 104 97-105 mmol/L Normal 0 [facility] (03374) Comment: Performed By: #### BMP #### [facility] [address] [place], [place] [address] CO2 Blood 25 22-30 mmol/L Normal 05-26-2020 [facility] (87591) Comment: Performed By: #### BMP #### [facility] [address] [place], [place] [address] Creatinine [Mass/Vol] 0.86 0.58-0.96 mg/dL Normal 05-26-20 20 [facility] (00 000) Comment: Performed By: #### BMP #### [facility] [address] [place], [place] [address] Glucose [Mass/Vol] 87 74-99 mg/dL Normal 05-26-2020 [facility] (01798) Comment: Result Comment: The [place] [employer] (ADA) provides guidance for cutoff values for fastin g glucose and random glucose. The ADA defines fasting as n o caloric intake for at least 8 hours.Fasting plasma glucose results between 100 to 125 mg/dL indicate increased risk for diabetes (prediabetes). Fasting plasma glucose resul ts greater than or equal to 126 mg/dL meet the criteria for diagnosis of diabetes. In the absence of unequivocal hyper glycemia, results should be confirmed by repeat testing. In a patient with classic symptoms of hyperglycemia or hyperglycemic crisis, random plasma glucose results great er than or equal to 200 mg/dL meet the criteria for diagno sis of diabetes. Reference: Standards of Medical Care in Diabetes 2016; [place] [employer]. Diabetes Care. 2016;39(Suppl 1). Performed By: #### BMP #### [facility] [address] [place], [place] [address] Potassium [Moles/Vol] 3.5 3.7-5.1 mmol/L Low 05-26-20 20 [facility] (04487) Comment: Performed By: #### BMP #### [facility] [address] [place], [place] [address] Sodium [Moles/Vol] 138 136-144 mmol/L Normal 05-26-2020 [facility] (62326) Comment: Performed By: #### BMP #### [address] [address] Urea nitrogen [Mass/Vol] 9 7-21 mg/dL Normal 05-26 [facility] (50182) Comment: Performed By: #### BMP #### [address] [address] urine drug screen o n 2020-05-25 Urine Alcohol <11 0-11 Normal 05-25-2020 [facility] (61765) Comment: Performed By: #### [id number] ### # [address] [address] Urine Amphetamine NEGATIVE NEGATIVE Normal 05-25-2020 [facility] (04811) Comment: Performed By: #### [id number] ### # [address] [address] Urine Barbiturates NEGATIVE NEGATIVE Normal 05-25-2020 [facility] (70476) Comment: Performed By: #### [id number] ### # [address] [address] Urine Benzodiazepine NEGATIVE NEGATIVE Normal 0 [facility] (00 000) Comment: Performed By: #### [id number] ### # [address] [address] Urine Cocaine Metab NEGATIVE NEGATIVE Normal 05-25-2020 [facility] (21477) Comment: Performed By: #### [id number] ### # [address] [address] Urine Opiates see below NEGATIVE Abnormal 05-25-2020 [facility] (86291) Comment: Result Comment: PRESUMPTIVE POSITIVE Performed By: #### UDRG3 ### # [facility] [address] [place], [place] [address] Urine Oxycodone NEGATIVE NEGATIVE Normal 05-25-2020 [facility] (72390) Comment: Performed By: #### UDRG3 ### # [facility] [address] [place], [place] [address] Urine PCP NEGATIVE NEGATIVE Normal 05-25-2020 [facility] (64981) Comment: Result Comment: Test Cutoff Unit Amphetamines 1000 ng/mL Barbiturates 200 ng/mL Benzodiazepines 200 ng/mL Cannabinoids 50 ng/mL Cocaine 300 ng/mL Opiates 300 ng/mL Oxycodone 100 ng/mL Phencyclidine 25 ng/mL Reference Range: Negative at cutoff threshold Immunoassay screen only. Family Living Educator ss reactivity with other substances can occur with im munoassay screening. Detection of any drug(s) in this urine to xicology panel is presumptive only. These tests are for me dical purposes only and should not be used for compliance m onitoring, legal, or forensic use. In clinical settings, confir matory testing is at the practitioner?s discretion.1 If clinically indicated, confirmation by high specifi city, quantitative methodology may be requested on the same specimen through the laboratory at ([phone]) if contact ed within 48 hours of initial 1. Substance Abuse and [facility] (2012). Clini sam Drug Testing in Primary Care Technical Assistance Publica tion Series 32. Department of Health and Human Services, [place], p.10. Performed By: #### [email or web address] ### # [facility] [address] [place], [place] [address] Urine THC NEGATIVE NEGATIVE Normal 05-25-2020 [facility] (34373) Comment: Performed By: #### [id number] ### # [facility] [address] [place], [place] [address] urinalysis routine on 2020-05-25 RBC LM.HPF (Urine sed) 0.0-3 0.0-5.0 Normal 020 [facility] [#/Area] System (00 000) Comment: Performed By: #### URIN2 ### # [facility] [address] [place], [place] [address] Bacteria LM.HPF (Urine sed) NONE None Normal [facility] [#/Area] (10414) Comment: Performed By: #### URIN2 ### # [facility] [address] [place], [place] [address] Ep Cells Urine 21.5 0.0-5.0 /hpf High 05-25-2020 [facility][1] System (58854) Comment: Performed By: #### URIN2 ### # [facility] [address] [place], [place] [address] Hyaline Cast 0.0 0.0-1.0 /lpf Normal 05-25-2020 [facility] ([id number]) Comment: Performed By: #### URIN2 ### # [facility] [address] [place], [place] [address] WBC LM.HPF (Urine sed) 2.9 0.0-5.0 /hpf Normal 020 [facility] [#/Area] System (00 000) Comment: Performed By: #### URIN2 ### # [facility] [address] [place], [place] [address] Appearance (U) CLOUDY Normal 05-25-2020 [facility][1] System ([address]) Comment: Performed By: #### URIN2 ### # [facility] [address] [place], [place] [address] Bilirubin (U) NEGATIVE Negative mg/dL Normal 05-25-2020 [facility] [Mass/Vol] System (0 0000) Comment: Performed By: #### URIN2 ### # [facility] [address] [place], [place] [address] Color (U) YELLOW Normal 05-25-2020 [facility] ([id number]) Comment: Performed By: #### URIN2 ### # [facility] [address] [place], [place] [address] Glucose Ql (U) NEGATIVE Negative Normal 05-25-2020 [facility][1] System ([address]) Comment: Performed By: #### URIN2 ### # [facility] [address] [place], [place] [address] Hemoglobin,Urine NEGATIVE Negative Normal 05-25-2020 [facility] ([address]) Comment: Performed By: #### URIN2 ### # [facility] [address] [place], [place] [address] Ketone Urine NEGATIVE Negative Normal 05-25-2020 [facility] ([address]241) Comment: Performed By: #### URIN2 ### # [facility] [address] [place], [place] [address] Leukocytes Esterase NEGATIVE Negative Normal 05-25-2020 [facility] ([address]) Comment: Performed By: #### URIN2 ### # [facility] [address] [place], [place] [address] Nitrites Urine NEGATIVE Negative Normal 05-25-2020 [facility] ([address]803) Comment: Performed By: #### URIN2 ### # [address] [address] pH (U) 5.5 5.0-8.0 [pH] Normal 05-25-2020 [facility] ([address]) Comment: Performed By: #### URIN2 ### # [facility] [address] [place], [place] [address] Protein (U) [Mass/Vol] NEGATIVE Negative mg/dL Normal 020 [facility] (00 000) Comment: Performed By: #### URIN2 ### # [facility] [address] [place], [place] [address] Specific [place], Ur 1.024 1.005-1.030 Normal 020 [facility] (00 000) Comment: Performed By: #### URIN2 ### # [facility] [address] [place], [place] [address] Urobilinogen,Ur 0.2 0.2-1.0 EU/dL Normal 05-25-2020 [facility] ([address]228) Comment: Performed By: #### URIN2 ### # [facility] [address] [place], [place] [address] nursing prog on 202 NURSING PROG HNO ID: [id number] Normal 05-25-20 [facility] Author: Eleanor (Rn) VIN [facility] [place] ([id number]) Service: ? Author Type: Registered Nurse Type: Nursing Progress Note Filed: 05/26/2020 12:03 AM Note Text: Reviewed pt allergy list with pt on admission, pt agreed and stated she had no further allergies. Pt proceeded to ask what pain medi cation was ordered for her, after being told Toradol was ordered she st ates I can't have Toradol or tramadol I am allergic to them pt says they cause a rash. This RN updated her allergy list and added Tramadol and celio dol. Pt stated dilaudid and fentanyl work best for her. House med notified one time 4mg morphine ordered. Pt states it took her pain from 10 to an 8 . 2345: pt requesting something more for pain at this time. Re ceived oxycodone order Q6 PRN. lipase blood on Lipase Blood 25 16-61 U/L Normal 05-25-2020 [facility] ([address]) Comment: Performed By: #### LIP #### [place] [address] hosp on 2020-05-25 HOSP Patient:Sally Mcgregor Normal 05-15 [place] MRN: General Height:5' 1(1.549 m) Medical Weight:200 lb 6.4 oz (90.901 kg) Center Outpatient Medications as of 05/28/20: ([id number]) hyoscyamine (LEVSIN) 0.125 mg tablet sucralfate (CARAFATE) 1 gram tablet promethazine (PHENERGAN) [address] (PROTONIX) 40 mg tablet diphenhydrAMINE (BENADRYL) 25 mg capsule estradiol (ESTRACE) 2 mg tablet Bifidobacterium Infantis (ALIGN) 4 mg cap sertraline (ZOLOFT) 100 mg tablet QUEtiapine (SEROQUEL) 100 mg tablet albuterol HFA (VENTOLIN HFA) 90 mcg/actuation inhaler Admission/Clinic Administered Medications as of 05/28/20: oxyCODONE IR 10 mg tab(s) (ROXICODONE) sucralfate 1 g tab(s) (CARAFATE) diphenhydrAMINE 50 mg (BENADRYL) QUEtiapine 100 mg tab(s) (SEROquel) albuterol 2.5 mg /3 mL (0.083 %) 2.5 mg (PROVENTIL) estradiol 2 mg tab(s) (ESTRACE) pantoprazole DR 40 mg tab(s) (PROTONIX) sertraline 100 mg tab(s) (ZOLOFT) enoxaparin 40 mg injection (LOVENOX) NaCl 0.9% iv infusion promethazine 25 mg tab(s) (PHENERGAN) acetaminophen 650 mg tab(s) (TYLENOL) Problem List: Routine gynecological examination [Z01.419] Family history of diabetes mellitus [Z83.3] Calculus of kidney [N20.0] Allergic rhinitis, cause unspecified [J30.9] Migraine without aura [G43.009] Smoker [F17.200] Impaired fasting glucose [R73.01] Benign liver cyst [K76.89] Ovarian cyst [N83.209] Generalized anxiety disorder [F41.1] Reactive depression [F32.9] Adjustment insomnia [F51.02] Encounter for screening for cardiovascular disorders [Z13.6] Bilateral low back pain without sciatica [M54.5] Pain in left hip [M25.552] Greater trochanteric bursitis [M70.60] Hydronephrosis of left kidney [N13.30] Hydroureter on left [N13.4] Right facial numbness [R20.0] Right upper extremity numbness [R20.0] Numbness of right lower extremity [R20.0] Weakness of right upper extremity [R29.898] Weakness of right lower extremity [R29.898] Vision blurred [H53.8] Lumbar spine pain [M54.5] Cervical spine pain [M54.2] Abnormal MRI, lumbar spine [R93.7] Hydroureter, left [N13.4] Lung nodules [R91.8] Intractable nausea and vomiting [R11.2] Allergies: Penicillins Cephalexin Chlorhexidine Toradol [Ketorolac] Tramadol Asa [Salicylates] Contrast Dye [Iodine] Ibuprofen Prednisone Date Verified: 05/28/20 Lab Values Lab Value Units Date High Low POTA* 2.9 mmol/L 05/28/2020 5.1 3.7 DORITA* 32.2 % 05/28/2020 44.9 34.1 Progress Notes ([facility]): Pierce Barber Ma 05/25/2020 4:24 PM Signed Tried to return patient call, voicemail full. Pierce Sunil CATES Progress Notes (): Katharine Gonzalez, RN, RN 05/25/2020 7:[address] Miranda notified pt needs SAFE-T form completed. Johnnie Long MD, MD 05/26/2020 12:13 AM Signed ED Provider Note Patient Name: Sally Mcgregor SERVICE DATE: 05/25/20 History Patient presents with: Abdominal Pain: Patient sent to ED by Dr. Chinchilla. Patient has known cyst on liver that is 9cm, recently had pancreatitis and is due for a ul trasound pancreas scope on Thursday. Patient havng sharp RUQ pain radiating d own side, patient having n/v/d since Thursday. States small amount of hematemes is last night, taking Tylenol for pain. Sameer cheney denies fevers/chills, urinary changes. Seen in February for pancreatitis. This is a 39-year-old female with history of pancreatitis presenting to the emergency room for abdominal pain. Patient has b een having epigastric and RUQ abdominal pain with radiatio n to her back since Thursday night. Patient was seen at [facility] ED on Thursday night where she was given fluids, told her labs looked fine and was discharged home. Sameer cheney follows with Dr. Winn for GI as she has a 9 cm cyst in her liver and history of pancreatitis . Patient is scheduled for endoscopy and ultrasound on . She states that Dr. Winn told her to come to [facility] ED for specific type of imaging but she cannot recall what kind. She states that she man s been having continued abdominal pain with nausea and hematemesis. Patient also reports diar sneha with blood in her stools but states that this is normal for her she has hemorr hoids. Patient denies any chest pain or shortness of breath. Patient denies any urinary symptoms. Patient has had a cholecystectomy and total hysterectomy in the past. ? Suicide Assessment Fiv e-step Evaluation and Triage? (SAFE-T) for Mental Health Professionals ? 1? IDENTIFY RISK FACTORS ? Note those that can be modified to reduce risk ? ? ? 2? IDENTIFY PROTECTIVE FACTORS ? Note those that can be enhanced ? ? ? 3? CONDUCT SUICIDE INQUIRY ? Suicidal thoughts, plans, behavior and inte nt ? ? ? 4? DETERMINE RISK LEVEL / INTERVENTION ??? Determine risk. Choose a ppropriate intervention to address and reduce risk ? ? 5? DOCUMENT ? Assessment of risk,rationale, intervention a nd follow up ? Suicide assessments should be conducted at first contact, with any subsequent suicidal behavior, increased ideation, or pertinent clinical Change; for inpatients, prior to increasing privileges and a t discharge. ? 1.??? RISK FACTORS v Suicidal behavior: history of prior suicide attempts, aborted suicide attempts or self-injurious behavior v Current/past psychiatric disorders: especially mood disord ers, psychotic disorders, alcohol/substance abuse, ADHD, TBI, PTSD, Cluster B personality disorders, conduct disorders (antisoci al behavior, aggression, impulsivity). Co-morbidity and recent onset of illness increase risk v Guzman Symptoms: anhedonia, impulsivity, hopelessness, anxiety/panic, insomnia, command hallucinations v Family history: of suicide, attempts, or [place] 1 psychiatri c disorders requiring hospitalization v Precipitants/Stressors/Interpersonal: triggering events le ading to humiliation, shame or despair (e.g; loss of relationship, fi nancial or Health status-real or antici pated). Ongoing medical illness (zohreh. [employer]TAIN disorders, pain). Intoxication. Family turmoil/chaos. History of Physical or sexual abuse. Social isolation. v Change in treatment: discharge from psychiatric hospital, provider or treatment change v Access to firearms 2.??? PROTECTIVE FACTORS pro tective factors, even if present, may not counteract significant acute risk v Internal: ability to cope with stress, jain beliefs, frustration tolerance v External: responsibility to children or beloved pets , positive therapeutic relationships, social supports 3.??? SUICIDE INQUIRY Specific questioning about thoug hts, plans, behaviors, intent v Ideation: frequency, intensity, durati on- - in last 48 hours, past month and worst ever v Plan: timing, location, lethality, availability, preparato ry acts v Behaviors: past attempts, aborted atte mpts, rehearsals (tying noose, loading gun), vs. non -suicidal self injurious actions v Intent: extent to which th e patient (1) expects to carry out the plan and (2) believes the plan/act to be lethal vs. self-injurious; Explore ambivalence: reasons to vs. reasons to live *For Youths: ask parent/guar desiree about evidence of suicidal thoughts, plans, or behaviors, and changes in mood, behaviors or disposition * Homicide Inquiry: when indicated, zohreh. in character disordered or paranoid males dealing with loss or humiliation. Inquire in four ar eas listed above. ? 4.? RISK LEVEL/INTERVENTION ? v Assessment of risk level is based on c linical judgment, after completing steps 1-3 ? v Reassess as patient or envir onmental circumstances change ? RISK LEVEL RISK/PROTECTIVE FACTOR SUICIDALITY POSSIBLE INTER VENTIONS ? ? High Psychiatric disorders with severe s ymptoms, or acute precipitating event; protective factors not relev ant Potentially lethal suicide attempt or persistent ideation with strong intent or suicide r ehearsal Admission generally indicated unless a significant change reduces risk. Suicide precaution s ? ? Moderate Multiple risk factors, few protective f actors Suicidal ideation with plan, but no intent or behavior Admission may be neces golden depending on risk factors. Develop crisis plan. Give emergency/crisis numbers ? ? Low Modifiable risk factors, strong protective factors Thoughts of , no plan, intent or behavior Outpatient referral, symptom reduct ion. Give emergency/crisis numbers ? 5.? DOCUMENT Risk le ramon and rationale; treatment plan to address/reduce current risk (e.g; setting, medication, psychotherapy, E.C.T , contact with significant others, consulta tions); firearm instructions, if relevant; follow up plan. For youths, treatment plan should include roles for parent / guardian. ? ? SUICIDE RISK LEVEL: low RATIONALE FOR RISK LEVEL (see above): Ideation: no; Plan: no ; Intent: no; Suicidal or Self-harm Behavi ors:no; Access to Firearms: no; Other Risk Factors: no; Protective Factors: yes PLAN TO ADDRESS RISK LEVEL: Environment/Sit (order sits for high/moderate risk): no sitter needed; ? If hospitalized on an Inpatient Behavioral Health Unit, Suic kostas risk level should be considered: low PAST MEDICAL HISTORY Diagnosis Date - Allergic rhinitis, cause unspecified 05/17/2008spring and summer - Benign liver cyst 05/24/2010 CT scan at [facility] 11/2009 and 04/2010 showe 4 mm increase in size . No pain. No elevated LFTs on 03/11/2010. - Calculus of kidney 05/17/[address] Nicolas: Hospitalized age 20, a nd again later -- no procedures so far ([facility], [facility], 1995 [facility]) - Cancer (HCC) - Diverticulosis - Dysmenorrhea - Hemorrhoids - History of blood transfusion - Impaired fasting glucose 05/17/2008 Sugar 104 fasting, 04/21 - MIGRAINE 05/17/2008 Has used imitrex with good response; Keeps Vicodin on hand w hen needed; - Ovarian cyst 07/15/2012 - Pancreatitis - Smoker 05/17/2008 Started age 26, 1/2 a PPD PAST SURGICAL HISTORY Procedure Laterality Date - CHOLECYSTECTOMY HX - COLONOSCOPY 05/08/2020 poor prep, stool in entire colon, int hemorrhoids, diverticu losis - DANDC, DIAG AND/OR THERAPEUTIC - EGD 05/08/2020 gastritis, duodenitis, mild esophagitis, 2 cm hiatal hernia - LIGATE FALLOPIAN TUBE - PAST SURGICAL HISTORY OF uterine ablation - PAST SURGICAL HISTORY OF cyst removal - REMOVAL OF OVARY(S) 2009 Oophorectomy right, still has left - REMOVAL OF OVARY(S) 01/2015 left removed - TOTAL ABDOM HYSTERECTOMY 08/31/06 Hysterectomy, [facility] FAMILY HISTORY Problem Relation Age of Onset - Diabetes Maternal Grandmother - Diabetes Maternal Grandfather - Lipids Maternal Grandfather - Stroke Maternal Grandfather - Coronary Artery Disease Maternal Grandfather - Cataract Maternal Grandfather - Pancreatic Cancer Maternal Grandfather - Diabetes Paternal Grandmother - Diabetes Paternal Grandfather - Coronary Artery Disease Paternal Grandfather - Thyroid Mother unsure of details - Arthritis Mother fibromyalgia - Blood Disease Mother blood clots, unsure of details (aorta?) - Breast Cancer Maternal Aunt - Lipids Maternal Uncle - Coronary Artery Disease Maternal Uncle - other (ovarian ca) Other maternal cousin Social History Tobacco Use - Smoking status: Former Smoker Packs/day: 0.50 Years: 3.00 Pack years: 1.50 Types: Cigarettes Quit date: 01/12/2017 Years since quittin.3 - Smokeless tobacco: Never Used - Tobacco comment: Approx. 3 cigarettes daily-1 pack every w [place] Substance and Sexual Activity - Alcohol use: Yes Comment: Occasional - Drug use: Never - Sexual activity: Yes Partners: Male control/protection: Surgical Comment: [employer] Allergen Reactions - Penicillins Rash - Cephalexin Itching - Chlorhexidine Rash Skin rash - Asa [Salicylates] Other: See Comments ulcers - Contrast Dye [Iodin* Shortness of Breath - Ibuprofen GI Upset - Prednisone Other: See Comments makes agitated and mean Review of Systems Constitutional: Negative for chills, fatigue and fever. HENT: Negative for facial swelling, rhinorrhea, sore throat and trouble swallowing. Eyes: Negative for photophobia and visual disturbance. Respiratory: Negative for cough, chest tightness, shortness of breath and wheezing. Cardiovascular: Negative for chest pain, palpitations and le g swelling. Gastrointestinal: Positive for abdominal distent ion, abdominal pain, blood in stool, diarrhea, nausea and vomiting. Negative for constipat ion. Genitourinary: Negative for difficulty urinating, dysuria an d hematuria. Musculoskeletal: Negative for back pain and myalgias. Skin: Negative for color change and rash. Neurological: Negative for dizziness, we akness, light-headedness, numbness and headaches. Psychiatric/Behavioral: Negative for confusion and hallucina tions. All other systems reviewed and are negative. Physical Exam BP 123/96 Pulse 75 Temp (Src) 97.9 (Oral) Resp 18 Ht 5' 1 (1.55m) Wt 198 lb (89.8kg) SpO2 98% LMP 08/10/2006 BMI 37.43 kg/( m2). O2 Therapy: Room Air Physical Exam Vitals signs and nursing note reviewed. Constitutional: General: She is in acute distress. Appearance: Normal appearance. She is not ill-appearing. HENT: Head: Normocephalic and atraumatic. Mouth/Throat: Mouth: Mucous membranes are moist. Pharynx: No oropharyngeal exudate or posterior oropharyngeal erythema. Eyes: Extraocular Movements: Extraocular movements intact. Conjunctiva/sclera: Conjunctivae normal. Pupils: Pupils are equal, round, and reactive to light. Cardiovascular: Rate and Rhythm: Normal rate and regular rhythm. Pulses: Normal pulses. Heart sounds: Normal heart sounds. No murmur. No friction ru b. No gallop. Pulmonary: Effort: Pulmonary effort is normal. No respiratory distress. Breath sounds: Normal breath sounds. No wheezing. Chest: Chest wall: No tenderness. Abdominal: General: Abdomen is flat. Bowel sounds are normal. There is no distension. Palpations: Abdomen is soft. Tenderness: There is abdominal tenderness in the right upper quadrant and epigastric area. There is ri ght CVA tenderness. There is no guarding or rebound. Musculoskeletal: Normal range of motion. General: No deformity. Skin: General: Skin is warm and dry. Findings: No bruising or rash. Neurological: General: No focal deficit present. Mental Status: She is alert and oriented to person, place, a nd time. Motor: No weakness. Psychiatric: Mood and Affect: Mood normal. Behavior: Behavior normal. Diagnostic Testing ED Labs Ordered and Reviewed COMPREHENSIVE METABOLIC PANEL (AK,AV,EU,FV,HL,JAS,MM,SP) LIPASE BLOOD (AK,AV,EU,FV,HL,AJS,MM,SP) CBC + AUTO DIFF (AK,AV,EU,FV,HL,JAS,MM,SP) URINALYSIS WITH MICROSCOPIC (AK,AV,EU,FV,HL,JAS,MM,SP) Procedures ED Course / Clinical Impression Clinical Impressions as of May 26 13 Intractable nausea and vomiting Right upper quadrant abdominal pain MDM / Disposition / Plan 39 year old female presents with RUQ + epigastri c pain for 3 days. On initial assessment patient was found non-toxic, no acute distress, afebrile and vitals hemodynamically stable. Differential inc ludes but not limited to kidney stone, ruptured liver cyst, pancrea titis, appendicitis. Patient given fluids, morphine for pain and Zofran for nausea. CMP showed no significant ab normalities. Lipase was within normal limits. CBC showed no evidence fo r leukocytosis or acute anemia. UA showed no evidence for infection. Patient w as having continued pain was given fentanyl 50 mcg. I attempted to c ontact Dr. Winn however did not get a respon se. Patient signed out to Dr. Pierre pending imaging and dispo. ED Signout Note May 25, 2020 8:[address] Duran Pierre The patient initially presented to the ED for: Abdominal daniele n Pending items are: Consult: Dr. Winn Labs:none Imaging:CT abdomen vs other imaging request per Dr. Winn Dispo and Plan: Patient will need to be admitted for intractable pain, nausea, vomiting, diarrhea. If Dr. Winn responds with imaging requ est, then do imaging. If Dr. Winn does not respond, do CT abdomen with IV contrast. Signed out in stable condition at 8:00 AM May. Please see Dr. Pierre note for further events and disposition. Yahir Miranda MD SIGNATURE: MD Yahir Doll (Res) MD Ruben Resident 05/25/20 0804 Attending Note I evaluated the patient and personally participated in the guzman components. I agree with the resident's fi ndings and plan as documented and have discussed the case and management of the patient's care with the resident. Signature: Johnnie Long MD Date: 05/26/2020 Time: 12:13 AM Johnnie Long MD 05/26/20 0013 Previous Version Katharine Gonzalez RN, RN 05/25/2020 10:42 AM Signed Pt complains of itching after Dilaudid. No hives or SOB note d. Dr. Pierre notified and no orders received. Pt given ice. Katharine Gonzalez RN, RN 05/25/2020 11:55 AM Signed Pt complains of heat flash Temperature adjusted. Resp unla bored. Katharine Gonzalez RN, RN 05/25/2020 3:08 PM Signed Pt to CT by cart. Katharine Gonzalez RN, RN 05/25/2020 4:00 PM Signed Covid swab obtained and sent. Johnnie Long MD, 05/26/2020 12:14 AM Signed ED Resident Continuation of Care Note May 25, 2020 4:09 PM Sally Mcgregor was endorsed to me by Dr. Miranda Briefly, the patient initially presented to the ED for Abdom inal pain Signout note reviewed. Labs returned and were unremarkable. Sameer cheney has CT iodine contrast allergy so we had to give steroids and Benadryl prior to the CT. Patient was given 2 doses of Dilaudid while here for pain control. Patient went to CT without issue, CT demonstrated no acute abnormality just c hronic findings including hepatic cyst and fatty liver. Patient mira l be admitted to the medical service for management of her nausea and vomiting and pain control. MD Duran Lucas (Res) MD Ignacio Resident 05/25/20 1610 Johnnie Long MD 05/26/20 0014 Previous Version Maggi Flores MD, MD 05/25/2020 5:42 PM Attested Attestation signed by Rob Valladares at 05/25/2020 6:27 PM Attending Note I discussed with resident. The patient was not examined by the attending. I reviewed the resident's note. I agree with the herman apodaca's assessment and plan unless otherwise noted. Signature: Rob Valladares MD Date: 05/25/2020. Time: 6:27 PM HOUSE MEDICINE SERVICE HISTORY AND PHYSICAL SERVICE DATE: May 25, 2020 SERVICE TIME: 4:00 PM NIGHT AND WEEKEND COVERAGE: From 6 AM to 5 PM: You may reach the House Medicine internal medicine physician currently assigned to this patien t by finding their pager number on the treatment team (they will be assigned as the internal medicine physician or resident). It is the last four digits in the phone num alyson beginning with ([phone]). We encourage the use of [employer] Secure Chat. PCP: Marcelino Mejia MD Admitting Attending: No admitting provider for patient sundar sandy. SUBJECTIVE Chief Complaint: Intractable nausea and vomiting HPI: Sally Mcgregor is a 39 year old F PMHx idi opathic pancreatitis, hepatic cysts presenting to the ED with intracta ble nausea and vomiting as well as RUQ abdominal pain for the past 3 days. States that she ca lled her GI doctor Dr. Winn and he told her to come into the ED. She has a scope scheduled for 05/[address] Winn. Was given pain medications and 1L NS bolus in the ED. Hemodynamically stable in e ED. CT abdomen/pelvis showing known hepatic cysts, however no signs of pancreat itis. Lipase and WBC count normal. When evaluated by me, still endorsing RUQ abdominal pain and nausea, but no vo miting since presentation to the ED. Review of Systems: GENERAL: No weight loss, malaise or fevers RESPIRATORY: Negative for cough, hemoptysis, wheezing, COPD, dyspnea or shortness of breath CARDIOVASCULAR: Negative for chest pain, leg swelling, hyp ertension, CHF or palpitations GI: Positive for nausea, vomiting, RUQ abdominal pain : No history of dysuria, frequency or incontinence MUSCULOSKELETAL: Negative for joint pain or swelling, back pain or muscle pain SKIN: Negative for lesions, rash, and itching PAST MEDICAL HISTORY Diagnosis Date - Allergic rhinitis, cause unspecified 05/17/2008 Spring and summer - Benign liver cyst 05/24/2010 CT scan at [facility] 11/2009 and 04/2010 showe 4 mm increase in size . No pain. No elevated LFTs on 03/11/2010. - Calculus of kidney 05/17/[address] Nicolas: Hospitalized age 20, a nd again later -- no procedures so far [facility]) - Cancer (HCC) - Diverticulosis - Dysmenorrhea - Hemorrhoids - History of blood transfusion - Impaired fasting glucose 05/17/2008 Sugar 104 fasting, 04/21 - MIGRAINE 05/17/2008 Has used imitrex with good response; Keeps Vicodin on hand w hen needed; - Ovarian cyst 07/15/2012 - Pancreatitis - Smoker 05/17/2008 Started age 26, 1/2 a PPD PAST SURGICAL HISTORY Procedure Laterality Date - CHOLECYSTECTOMY HX - COLONOSCOPY 05/08/2020 poor prep, stool in entire colon, int hemorrhoids, diverticu losis - [facility], DIAG AND/OR THERAPEUTIC - EGD 05/08/2020 gastritis, duodenitis, mild esophagitis, 2 cm hiatal hernia - LIGATE FALLOPIAN TUBE - PAST SURGICAL HISTORY OF uterine ablation - PAST SURGICAL HISTORY OF cyst removal - REMOVAL OF OVARY(S) 2009 Oophorectomy right, still has left - REMOVAL OF OVARY(S) 01/2015 left removed - TOTAL ABDOM HYSTERECTOMY 08/31/06 Hysterectomy, [facility] FAMILY HISTORY Problem Relation Age of Onset - Diabetes Maternal Grandmother - Diabetes Maternal Grandfather - Lipids Maternal Grandfather - Stroke Maternal Grandfather - Coronary Artery Disease Maternal Grandfather - Cataract Maternal Grandfather - Pancreatic Cancer Maternal Grandfather - Diabetes Paternal Grandmother - Diabetes Paternal Grandfather - Coronary Artery Disease Paternal Grandfather - Thyroid Mother unsure of details - Arthritis Mother fibromyalgia - Blood Disease Mother blood clots, unsure of details (aorta?) - Breast Cancer Maternal Aunt - Lipids Maternal Uncle - Coronary Artery Disease Maternal Uncle - other (ovarian ca) Other maternal cousin Social History Tobacco Use - Smoking status: Former Smoker Packs/day: 0.50 Years: 3.00 Pack years: 1.50 Types: Cigarettes Quit date: 01/12/2017 Years since quittin.3 - Smokeless tobacco: Never Used - Tobacco comment: Approx. 3 cigarettes daily-1 pack every w [place] Substance Use Topics - Alcohol use: Yes Comment: Occasional - Drug use: Never Medications: (Not in a hospital admission) ALLERGIES Allergen Reactions - Penicillins Rash - Cephalexin Itching - Chlorhexidine Rash Skin rash - Asa [Salicylates] Other: See Comments ulcers - Contrast Dye [Iodin* Shortness of Breath - Ibuprofen GI Upset - Prednisone Other: See Comments makes agitated and mean OBJECTIVE: Vital Signs: BP 110/62 Pul se 72 Temp (Src) 97.9 (Oral) Resp 15 Ht 5' 1 (1.55m) Wt 198 lb (89.8kg) SpO2 96% LMP BMI 37.43 kg/(m2). O2 Therapy: Room Air Physical Exam Performed: GENERAL: Obese, Alert, Mild Distress, Cooperative LUNGS: Lungs clear to auscultation, Good diaphragmatic excur matias CARDIAC: Normal S1 and S2; no rubs, murmurs, or gallops ABDOMEN: Soft, BS normal, no masses or organomegaly, tender to palpation in the RUQ EXTREMITIES: Extremities normal, no deformities, edema, club konstantin or skin discoloration. Good capillary refill., No ulcers PULSES: 2+ radial, 2+ carotid The remainder of the physical exam is noncontributory. Lines, Drains, and Airways Line Peripheral 05/25/20 0636 Left Antecubital 20 Gauge less than 1 day Reviewed lines and needs to be continued: REASONS: Intraveno us fluids Data: Recent Labs 05/25/20 0658 WBC 8.43 RBC 4.29 HB 12.1 HCT 39.7 PLT 254 MCV 92.5 MCH 28.2 MPV 11.0 RDW 13.7 Recent Labs 05/25/20 0658 GLUC 95 NA 139 K 3.6* CHLOR 104 CO2 24 CREAT 0.95 BUN 11 ANION 11 CA 9.7 TPROT 8.0 ALB 4.8 TBILI 0.4 ALKPHOS 98 AST 14 ALT 12 Recent Labs 05/25/20 0658 GLUC 95 Patient discussed with Rob Valladares Assessment/Plan Problem List Intractable nausea and vomiting Intractable nausea and vomiting Associated with RUQ abdominal pain Hx of pancreatitis, however no evidence on labs or imaging CT abdomen/pelvis showing kn own hepatic cysts but otherwise fairly unremarkable NS @ 100 Continue supportive care and symptomatic relief Will consult Dr. Winn of GI for possible inpatient endosco py Medication and Non-Pharmacologic VTE Prophylaxis/Anticoagula nts VTE Prophylaxis: VTE prophylaxis appropriate GI Prophylaxis: Not indicated Telemetry: Not indicated Disposition: Home Code Status: Not on file Plan of care discussed with: Provider, RN, Patient SIGNATURE: Maggi Folres MD PATIENT NAME: Sally james DATE: May 25, 2020 TIME: 5:28 PM Katharine Gonzalez, RN, RN 05/25/2020 5:[address] Mukherjee notified pt asking for something for pain. Katharine Gonzalez, RN, RN 05/25/2020 6:31 PM Signed RN unavailable for report at 1830 Eleanor Parrish, RN, RN 05/26/2020 12:03 AM Signed Reviewed pt allergy list with pt on admi ssion, pt agreed and stated she had no further allergies. Pt procee ded to ask what pain medication was ordered for her, after being told Toradol was ordered she states I can't hav e Toradol or tramadol I am allergic to them pt says they cause a rash. This RN updated her allergy list and added Tramadol and toradol. Pt stated dilaudid and fentanyl work best for her. House med notified on e time 4mg morphine ordered. Pt states it took her pain from 10 to an 8. 2345: pt requesting something more for pain at this ti me. Received oxycodone order Q6 PRN. Joe Maldonado PA-C 05/26/2020 11:22 AM Signed INITIAL CONSULT GASTROENTEROLOGY SERVICE DATE: 05/26/2020 SERVICE TIME: 11:10 AM Opinion/advice regarding: Nausea, Vomiting, Abdominal Pain Subjective HPI: 39 year old woman who presents with nausea, vomiting, and abdominal pain. PMHx is significant for Idio pathic Pancreatitis and Hepatic Cysts who presented to the ED with nausea, vomit ing, abdominal pain for 3-days. Sees Dr. Winn and has EGD with EUS +/- FNA scheduled for Tuesday 05/29. She sta los she was instructed to go to the ED after calling his office. CT abdo men/pelvis was obtained and revelaed known hepatic cyst s without signs of acute pancreatitis. Lipase and WBC count were normal. Denies any hematemesis, hematochezia, change in bowel habi ts, night sweats, weight loss or yellowing of the skin or eyes. PAST MEDICAL HISTORY Diagnosis Date - Allergic rhinitis, cause unspecified 05/17/2008 Spring and summer - Benign liver cyst 05/24/2010 CT scan at [facility] 11/2009 and 04/2010 showe 4 mm increase in size . No pain. No elevated LFTs on 03/11/2010. - Calculus of kidney 05/17/[address] Nicolas: Hospitalized age 20, a nd again later -- no procedures so far ([facility], most, 1995 [facility]) - Cancer (HCC) - Diverticulosis - Dysmenorrhea - Hemorrhoids - History of blood transfusion - Impaired fasting glucose 05/17/2008 Sugar 104 fasting, 04/21 - MIGRAINE 05/17/2008 Has used imitrex with good response; Keeps Vicodin on hand w hen needed; - Ovarian cyst 07/15/2012 - Pancreatitis - Smoker 05/17/2008 Started age 26, 1/2 a PPD PAST SURGICAL HISTORY Procedure Laterality Date - CHOLECYSTECTOMY HX - COLONOSCOPY 05/08/2020 poor prep, stool in entire colon, int hemorrhoids, diverticu losis - DANDC, DIAG AND/OR THERAPEUTIC - EGD 05/08/2020 gastritis, duodenitis, mild esophagitis, 2 cm hiatal hernia - LIGATE FALLOPIAN TUBE - PAST SURGICAL HISTORY OF uterine ablation - PAST SURGICAL HISTORY OF cyst removal - REMOVAL OF OVARY(S) 2009 Oophorectomy right, still has left - REMOVAL OF OVARY(S) 01/2015 left removed - TOTAL ABDOM HYSTERECTOMY 08/31/06 Hysterectomy, [facility] FAMILY HISTORY Problem Relation Age of Onset - Diabetes Maternal Grandmother - Diabetes Maternal Grandfather - Lipids Maternal Grandfather - Stroke Maternal Grandfather - Coronary Artery Disease Maternal Grandfather - Cataract Maternal Grandfather - Pancreatic Cancer Maternal Grandfather - Diabetes Paternal Grandmother - Diabetes Paternal Grandfather - Coronary Artery Disease Paternal Grandfather - Thyroid Mother unsure of details - Arthritis Mother fibromyalgia - Blood Disease Mother blood clots, unsure of details (aorta?) - Breast Cancer Maternal Aunt - Lipids Maternal Uncle - Coronary Artery Disease Maternal Uncle - other (ovarian ca) Other maternal cousin Social History Tobacco Use - Smoking status: Former Smoker Packs/day: 0.50 Years: 3.00 Pack years: 1.50 Types: Cigarettes Quit date: 01/12/2017 Years since quittin.3 - Smokeless tobacco: Never Used - Tobacco comment: Approx. 3 cigarettes daily-1 pack every w [place] Substance Use Topics - Alcohol use: Yes Comment: Occasional - Drug use: Never MEDICATIONS: Prior to Admission Medications: hyoscyamine (LEVSIN) 0.125 mg tablet Take 1 tablet by mouth every 6 hours as needed. sucralfate (CARAFATE) 1 gram tablet Take 1 tablet by out four times daily. promethazine (PHENERGAN) 25 mg tablet Take 1 tab let by mouth every 8 hours as needed (for nausea). diphenhydrAMINE (BENADRYL) 25 mg capsule Take 50 mg by mouth every 6 hours as needed. estradiol (ESTRACE) 2 mg tablet Take 2 mg by mouth once kehinde y. Bifidobacterium Infantis (ALIGN) 4 mg cap Take 1 capsule by mouth once daily. sertraline (ZOLOFT) 100 mg tablet Take 1 tablet by mouth onc e daily. QUEtiapine (SEROQUEL) 100 mg tablet Take 1 tablet by mouth o nce daily. albuterol HFA (VENTOLIN HFA) 90 mcg/actuation inhaler Inhale 2 Puffs as instructed every 4 hours as needed. pantoprazole DR (PROTONIX) 40 mg tablet Take 1 tablet by m outh daily before breakfast. Take on empty stomach, 1/2 hr before meal. Current Facility-Administered Medications Medication Dose Route Frequency - sucralfate 1 g tab(s) (CARAFATE) 1 g ORAL QID - diphenhydrAMINE 50 mg (BENADRYL) 50 mg ORAL q 6 H PRN - QUEtiapine 100 mg tab(s) (SEROquel) 100 mg ORAL DAILY - albuterol 2.5 mg /3 mL (0.083 %) 2.5 mg (PROVE NTIL) 2.5 mg INHALATION q 4 H PRN - estradiol 2 mg tab(s) (ESTRACE) 2 mg ORAL DAILY - pantoprazole DR 40 mg tab(s) (PROTONIX) 40 mg ORAL BEFOR E BREAKFAST DAILY - sertraline 100 mg tab(s) (ZOLOFT) 100 mg ORAL DAILY - enoxaparin 40 mg injection (LOVENOX) 40 mg SUBCUTANEOUS DA FEDERICO - NaCl 0.9% iv infusion 100 mL/hr INTRAVENOUS CONTINUOUS - promethazine 25 mg tab(s) (PHENERGAN) 25 mg ORAL q 6 H PRN - oxyCODONE IR 5 mg tab(s) (ROXICODONE) 5 mg ORAL q 6 H PRN - acetaminophen 650 mg tab(s) (TYLENOL) 650 mg ORAL q 4 H MT N ALLERGIES Allergen Reactions - Penicillins Rash - Cephalexin Itching - Chlorhexidine Rash Skin rash - Toradol [Ketorolac] Rash - Tramadol Rash - Asa [Salicylates] Other: See Comments ulcers - Contrast Dye [Iodin* Shortness of Breath - Ibuprofen GI Upset - Prednisone Other: See Comments makes agitated and mean GI SPECIFIC REVIEW OF SYSTEMS: See HPI OTHER ROS: Negative Except For HPI Objective PHYSICAL EXAM: BP 96/57 Pulse 61 Temp 36.3 ?C (97.3 ?F) (Oral) Resp 16 Ht 154.9 cm (5' 1) Wt 90.9 kg (200 lb 6.4 oz) LMP 08/10/2006 SpO2 97% BMI 37.87 kg/m? GENERAL- AAO x 3, mild distress after entering room HEENT: Moist mucus membranes, no scleral icterus, EOM grossl y intact LUNGS: Clear to auscultation anterior bilateral CARDIAC: S1, S2, no murmur gallop or rub appreciated ABDOMEN: Soft, mildly-tender without gua rding or rigidity in epigastric region and RUQ, normoactive bowel sounds EXTREMITIES: No pedal edema bilateral Skin: No obvious lesions or deformities appreciated, skin no n-jaundiced DATA: Diagnostic Tests Reviewed for Today's Visit: Most recent labs and imaging results. Impression/Recommendations 1. Nausea and Vomiting - IV FLuids until PO intake improves - Clear liquids --> advance as tolerated - Antiemetics q4-6hrs PRN for nausea 2. Abdominal Pain in setting of known id iopathic pancreatitis and hepatic cyst - Consider PO pain control once tolerating diet - Can consider breakthrough pain control with morphine or fe ntanyl - Consider pain management consult if unable to control pain - Will discuss with staff on scheduling initial procedure as an inpatient. Will update this decision Thursday. Thank you for consulting us in the care of this patien t. GI will continue to follow. SIGNATURE: Joe Maldonado PA-C PATIENT NAME: Sally Mcgregor DATE: May 26, 2020 TIME: 11:10 AM PAGER/CONTACT #: [phone] After 3PM please use on-call paging system Vickie Srivastava MD 05/26/2020 2:11 PM Attested Attestation signed by Oh Arreaga at 05/26/2020 2:23 PM Attending Note I personally saw and examined the patient on 05/26/20. I rev iewed the resident's note. I agree with the resident's assessment and plan unless otherwise noted. Signature: Oh Arreaga, DO Date: 05/26/2020 Time: 2:23 PM Pager: [phone] HOUSE MEDICINE SERVICE PROGRESS NOTE SERVICE DATE: May 26, 2020 SERVICE TIME: 1:53 PM NIGHT AND WEEKEND COVERAGE: From 6 AM to 5 PM: You may reach the House Medicine internal medicine physician currently assigned to this patien t by finding their pager number on the treatment team (they will be assigned as the internal medicine physician or resident). It is the last four digits in the phone num alyson beginning with ([phone]). We encourage the use of [employer] Secure Chat. SUBJECTIVE HPI: 39 year old F PMHx idiopathic pancreatitis, hepat ic cysts presenting to the ED with intractable nausea and vomiting as w ell as RUQ abdominal pain for the past 3 days. States that she called her GI doctor Dr. Winn and he told her to come into the ED. She has a scope scheduled for 05/[address] Winn. Was given pain medications and 1 L NS bolus in the ED. Hemodynamically stable in the ED. CT abdomen/pelvis showing known hepatic cysts, however n o signs of pancreatitis. Lipase and WBC count normal. When evaluated by me, still endorsing RUQ abdominal pain and nausea, but no vomiting since p resentation to the ED. ? Interval Events: Pt is sitti ng in a chair. She denies any nausea or vomiting, or diarrhea. She does have some abdominal pain that is controll ed on the pain medications. OBJECTIVE Medications: IV Infusions: - NaCl 0.9%, Last Rate: 100 mL/hr (05/26/20 041) Scheduled: - sucralfate, 1 g, QID - QUEtiapine, 100 mg, DAILY - estradiol, 2 mg, DAILY - pantoprazole DR, 40 mg, BEFORE BREAKFAST DAILY - sertraline, 100 mg, DAILY - enoxaparin, 40 mg, DAILY PRN: - diphenhydrAMINE, 50 mg, q 6 H PRN - albuterol, 2.5 mg, q 4 H PRN - promethazine, 25 mg, q 6 H PRN - oxyCODONE IR, 5 mg, q 6 H PRN - acetaminophen, 650 mg, q 4 H PRN Vital Signs: BP 96/57 Pulse 61 Temp (Src) 97.3 (Oral) Resp 16 Ht 5' 1 (1.55m) Wt 200 lb 6.4 oz (90.9kg) SpO2 97% LMP 08/10 BMI 37.88 kg/(m2). O2 Therapy: Room Air Physical Exam Performed: GENERAL: well appearing, alert and in no acute distress HEART: regular rate and rhythm, no murmer, gallop or r ub, normal, S1, S2, no lifts, heaves, or thrills, PMI not displaced LUNGS: clear to percussion and auscultation and no rales ABDOMEN: Soft,non-tender, bowel sounds normal, no palpable organomegaly, no bruits. EXTREMITY: Normal exam of the extremities. No clubbing, cy anosis, or edema. Lines, Drains, and Airways Line Peripheral 05/25/20 0636 Left Antecubital 20 Gauge 1 day Assessment/Plan Problem List Intractable nausea and vomiting Intractable nausea and vomiting Associated with RUQ abdominal pain Hx of pancreatitis, however no evidence on labs or imaging CT abdomen/pelvis showing kn own hepatic cysts but otherwise fairly unremarkable NS @ 100 until po intake improves Continue supportive care and symptomatic relief Pain is controlled on current pain regimen Pt is scheduled for ercp on Thursday as outpatient a/c GI Anti-emetics q4 prn Medication and Non-Pharmacologic VTE Prophylaxis/Anticoagula nts Anticoagulant AND Antiplatelet Medications (From admission, onward) Start Dose Route Frequency Ordered Stop 05/25/201999 enoxaparin 40 mg injection (LOVENOX) (Me dical Risk Categories) 40 mg SUBCUTANEOUS DAILY 05/25/20 193 -- 05/25/201944 pneumatic compression stockings (ks,oh) VTE Prophylaxis: VTE prophylaxis appropriate GI Prophylaxis: Indicated due to chronic acid suppression th erapy as an outpatient Telemetry: no Disposition: Home Code Status: Not on file Plan of care discussed with: Provider, RN, Patient SIGNATURE: Vickie Srivastava MD PATIENT NAME: Sally shannon DATE: May 26, 2020 TIME: 1:53 PM Joe Maldonado PA-C 05/27/2020 1:17 PM Signed GI CONSULT PROGRESS NOTE SERVICE DATE: 05/27/2020 SERVICE TIME: 1:15 PM CONSULTING SERVICE: Gastroenterology PLAN: - Orders placed for EGD/EUS - based on case-load; procedure may be on Thursday as w as initially scheduled - NPO at midnight if not discharged - Continue pain and nausea control - Replace electrolytes - PT/INR with morning labs MEDICATIONS: Current Facility-Administered Medications Medication Dose Route Frequency - sucralfate 1 g tab(s) (CARAFATE) 1 g ORAL QID - diphenhydrAMINE 50 mg (BENADRYL) 50 mg ORAL q 6 H PRN - QUEtiapine 100 mg tab(s) (SEROquel) 100 mg ORAL DAILY - albuterol 2.5 mg /3 mL (0.083 %) 2.5 mg (PROVE NTIL) 2.5 mg INHALATION q 4 H PRN - estradiol 2 mg tab(s) (ESTRACE) 2 mg ORAL DAILY - pantoprazole DR 40 mg tab(s) (PROTONIX) 40 mg ORAL BEFOR E BREAKFAST DAILY - sertraline 100 mg tab(s) (ZOLOFT) 100 mg ORAL DAILY - enoxaparin 40 mg injection (LOVENOX) 40 mg SUBCUTANEOUS DA [place] - NaCl 0.9% iv infusion 100 mL/hr INTRAVENOUS CONTINUOUS - promethazine 25 mg tab(s) (PHENERGAN) 25 mg ORAL q 6 H PRN - acetaminophen 650 mg tab(s) (TYLENOL) 650 mg ORAL q 4 H MT N - oxyCODONE IR 10 mg tab(s) (ROXICODONE) 10 mg ORAL q 6 H MT N Objective PHYSICAL EXAM: VITALS:BP 119/74 Pulse 63 Temp 36.3 ?C (97.3 ?F) (Oral) Resp 19 Ht 154.9 cm (5' 1) Wt 90.9 kg (200 lb 6.4 oz) LMP 2005 SpO2 99% BMI 37.87 kg/m? DATA: Diagnostic tests reviewed for today's visit: Most recent labs and imaging results. SIGNATURE: Joe Maldonado PA-C PATIENT NAME: Sally Mcgregor DATE: May 27, 2020 TIME: 1:15 PM PAGER/CONTACT #: [employer] Pager Vickie Srivastava MD 05/27/2020 4:19 PM Attested Attestation signed by Rob Valladares at 05/27/2020 4:51 PM Attending Note I evaluated the patient and personally participated in the guzman components. I agree with the resident's findings and plan as kevin gaitan and have discussed the case and management of the patient's care wi th the resident. Plan of care discussed with: Patient. Signature: Rob Valladares MD Date: May 27, 2020 Time: 4:50 PM HOUSE MEDICINE SERVICE PROGRESS NOTE SERVICE DATE: May 27, 2020 SERVICE TIME: 1:53 PM NIGHT AND WEEKEND COVERAGE: From 6 AM to 5 PM: You may reach the House Medicine internal medicine physician currently assigned to this patien t by finding their pager number on the treatment team (they will be assigned as the internal medicine physician or resident). It is the last four digits in the phone num alyson beginning with ([phone]). We encourage the use of [employer] Secure Chat. SUBJECTIVE HPI: 39 year old F PMHx idiopathic pancreatitis, hepat ic cysts presenting to the ED with intractable nausea and vomiting as w ell as RUQ abdominal pain for the past 3 days. States that she called her GI doctor Dr. Winn and he told her to come into the ED. She has a scope scheduled for 05/[address] Winn. Was given pain medications and 1 L NS bolus in the ED. Hemodynamically stable in the ED. CT abdomen/pelvis showing known hepatic cysts, however n o signs of pancreatitis. Lipase and WBC count normal. When evaluated by me, still endorsing RUQ abdominal pain and nausea, but no vomiting since p resentation to the ED. ? Interval Events: Pt complains of RUQ abdominal pain. She den ies any fever, nausea or vomiting, or diarrhea. She krzysztof d that her pain is uncontrolled by the current regimen. Pt can tolerate current liquid diet for now. Her last BM was three days ago. She feels like her abdomen is distended an d has discomfort. OBJECTIVE Medications: IV Infusions: - NaCl 0.9%, Last Rate: 100 mL/hr (05/26/201922) Scheduled: - sucralfate, 1 g, QID - QUEtiapine, 100 mg, DAILY - estradiol, 2 mg, DAILY - pantoprazole DR, 40 mg, BEFORE BREAKFAST DAILY - sertraline, 100 mg, DAILY - enoxaparin, 40 mg, DAILY PRN: - oxyCODONE IR, 10 mg, q 6 H PRN - diphenhydrAMINE, 50 mg, q 6 H PRN - albuterol, 2.5 mg, q 4 H PRN - promethazine, 25 mg, q 6 H PRN - acetaminophen, 650 mg, q 4 H PRN Vital Signs: BP 119/74 Pul se 63 Temp (Src) 97.3 (Oral) Resp 19 Ht 5' 1 (1.55m) Wt 200 lb 6.4 oz (90.9kg) SpO2 99% LMP 08/10 BMI 37.88 kg/(m2). O2 Therapy: Room Air Physical Exam Performed: GENERAL: well appearing, alert and in no acute distress HEART: regular rate and rhythm, no murmer, gallop or r ub, normal, S1, S2, no lifts, heaves, or thrills, PMI not displaced LUNGS: clear to percussion and auscultation and no rales ABDOMEN: Soft, RUQ tender, bowel sounds normal, no pal pable organomegaly, no bruits. EXTREMITY: Normal exam of the extremities. No clubbing, cy anosis, or edema. Lines, Drains, and Airways Line Peripheral 05/25/20 0636 Left Antecubital 20 Gauge 2 days Assessment/Plan Problem List Intractable nausea and vomiting Intractable nausea and vomiting Associated with RUQ abdominal pain Hx of pancreatitis, however no evidence on labs or imaging CT abdomen/pelvis showing kn own hepatic cysts but otherwise fairly unremarkable NS @ 100 until po intake improves Can advance diet if patient feels comfortable Continue supportive care and symptomatic relief Pain is still present. Pain medication dose adjusted. Pt is scheduled for ercp on Thursday Anti-emetics q4 prn Medication and Non-Pharmacologic VTE Prophylaxis/Anticoagula nts Anticoagulant AND Antiplatelet Medications (From admission, onward) Start Dose Route Frequency Ordered Stop 05/25/201999 enoxaparin 40 mg injection (LOVENOX) (Me dical Risk Categories) 40 mg SUBCUTANEOUS DAILY 05/25/201935 -- 05/25/201944 pneumatic compression stockings (fl,oh) VTE Prophylaxis: VTE prophylaxis appropriate GI Prophylaxis: Indicated due to chronic acid suppression th erapy as an outpatient Telemetry: no Disposition: Home Code Status: Not on file Plan of care discussed with: Provider, RN, Patient SIGNATURE: Vickie Srivastava MD PATIENT NAME: Sally shannon DATE: May 27, 2020 TIME: 1:53 PM Rupal Benitez RN, RN 05/28/2020 5:25 AM Signed Nursing Progress Note Patient Name: Sally Mcgregor Patient Location: [id number] Attempted to draw AM labs. Was unsuccessful x 2 attempts. This note was completed by: VIN Conley MD 05/28/2020 8:57 AM Incomplete HOUSE MEDICINE SERVICE PROGRESS NOTE SERVICE DATE: May 28, 2020 SERVICE TIME: 1:53 PM NIGHT AND WEEKEND COVERAGE: From 6 AM to 5 PM: You may reach the House Medicine internal medicine physician currently assigned to this patien t by finding their pager number on the treatment team (they will be assigned as the internal medicine physician or resident). It is the last four digits in the phone num alyson beginning with ([phone]). We encourage the use of [employer] Secure Chat. SUBJECTIVE HPI: 39 year old F PMHx idiopathic pancreatitis, hepat ic cysts presenting to the ED with intractable nausea and vomiting as w ell as RUQ abdominal pain for the past 3 days. States that she called her GI doctor Dr. Winn and he told her to come into the ED. She has a scope scheduled for 05/[address] Winn. Was given pain medications and 1 L NS bolus in the ED. Hemodynamically stable in the ED. CT abdomen/pelvis showing known hepatic cysts, however n o signs of pancreatitis. Lipase and WBC count normal. When evaluated by me, still endorsing RUQ abdominal pain and nausea, but no vomiting since p resentation to the ED. ? Interval Events: Pt complains of RUQ abdominal pain. She den ies any fever, nausea or vomiting, or diarrhea. She krzysztof d that her pain is uncontrolled by the current regimen. Pt can tolerate current liquid diet for now. Her last BM was three days ago. She feels like her abdomen is distended an d has discomfort. OBJECTIVE Medications: IV Infusions: - NaCl 0.9%, Last Rate: 100 mL/hr (05/27/201746) Scheduled: - sucralfate, 1 g, QID - QUEtiapine, 100 mg, DAILY - estradiol, 2 mg, DAILY - pantoprazole DR, 40 mg, BEFORE BREAKFAST DAILY - sertraline, 100 mg, DAILY - enoxaparin, 40 mg, DAILY PRN: - oxyCODONE IR, 10 mg, q 6 H PRN - diphenhydrAMINE, 50 mg, q 6 H PRN - albuterol, 2.5 mg, q 4 H PRN - promethazine, 25 mg, q 6 H PRN - acetaminophen, 650 mg, q 4 H PRN Vital Signs: BP 111/67 Pul se 72 Temp (Src) 97.9 (Oral) Resp 18 Ht 5' 1 (1.55m) Wt 200 lb 6.4 oz (90.9kg) SpO2 100% LMP 08/10/2006 BMI 37.88 kg/(m2). O2 Therapy: Room Air Physical Exam Performed: GENERAL: well appearing, alert and in no acute distress HEART: regular rate and rhythm, no murmer, gallop or r ub, normal, S1, S2, no lifts, heaves, or thrills, PMI not displaced LUNGS: clear to percussion and auscultation and no rales ABDOMEN: Soft, RUQ tender, bowel sounds normal, no pal pable organomegaly, no bruits. EXTREMITY: Normal exam of the extremities. No clubbing, cy anosis, or edema. Lines, Drains, and Airways Line Peripheral 05/25/20 0636 Left Antecubital 20 Gauge 2 days Assessment/Plan Problem List {TIP Is your problem list updated ? Click here to update Launch Problem List Activity Then right click to refresh to see the updated problem list (No need to delete will not show in completed note) :[id number] } Intractable nausea and vomiting Intractable nausea and vomiting Associated with RUQ abdominal pain Hx of pancreatitis, however no evidence on labs or imaging CT abdomen/pelvis showing kn own hepatic cysts but otherwise fairly unremarkable NS @ 100 until po intake improves Can advance diet if patient feels comfortable Continue supportive care and symptomatic relief Pain is still present. Pain medication dose adjusted. Pt is scheduled for EGD with EUS +/- FNA scheduled for today Anti-emetics q4 prn {TIP Manually update assessment and plan for n ew or resolved problems above Launch Problem List (No need to delete will not show in completed note) :[id number] } Medication and Non-Pharmacologic VTE Prophylaxis/Anticoagula nts Anticoagulant AND Antiplatelet Medications (From admission, onward) Start Dose Route Frequency Ordered Stop 05/25/201999 enoxaparin 40 mg injection (LOVENOX) (Me dical Risk Categories) 40 mg SUBCUTANEOUS DAILY 05/25/201935 -- 05/25/201944 pneumatic compression stockings (ks,oh) VTE Prophylaxis: VTE prophylaxis appropriate GI Prophylaxis: Indicated due to chronic acid suppression th erapy as an outpatient Telemetry: no Disposition: Home Code Status: Not on file Plan of care discussed with: Provider, RN, Patient SIGNATURE: Vickie Srivastava MD PATIENT NAME: Sally shannon DATE: May 28, 2020 TIME: 1:53 PM Ramone Gregorio MD 05/28/2020 9:09 AM Signed SALLY Bro SAM 39 year old PAIN CONSULTATION: Abdominal pain, history of idiopathic verdugo creatitis. 24 HOUR COMFORT MEDICATIONS: Oxycodone 10 mg x 3 Quetiapine 100 mg daily [place] prescription history Shows occasional use of opiates, m ost recently oxycodone 5 mg, #12 filled o n 02/18/2020, most recent triazolam 0.25 mg, #2 filled on 03/23/2020. No real concerns other than frequent small dos es of opiates. Opiate naive on admission. Subjective HPI: 39-year-old female admitted on 05/25/2020 with complaint s of nausea, emesis, abdominal pain, with a prior history of idiopathic pancreatitis and known to have hepatic cysts. CT of the abdomen/p nohelia obtained this admission showed stable hepatic cysts, and no evid ence of acute pancreatitis with normal lipase, and CBC. At this time, not experiencing any fever, chills, sweats, he matemesis, hematochezia, additional GI, , constit utional, pulmonary, or other symptoms. Current Facility-Administered Medications Medication Dose Route Frequency Provider Last Rate Last Dose - oxyCODONE IR 10 mg tab(s) (ROXICODONE) 10 mg ORAL q 6 H MT N Maggi (Kiran) MD Mark 10 mg at 05/27/202235 - sucralfate 1 g tab(s) (CARAFATE) 1 g ORAL QID Maggi (Kiran) MD Mark 1 g at 05/27/202005 - diphenhydrAMINE 50 mg (BENADRYL) 50 mg ORAL q 6 H PRN Maggi (Kiran) MD Mark 50 mg at 05/27/202235 - QUEtiapine 100 mg tab(s) (SEROquel) 10 0 mg ORAL DAILY Maggi (Kiran) MD Mark 100 mg at 05/27/202006 - albuterol 2.5 mg /3 mL (0.083 %) 2.5 mg (PROVE NTIL) 2.5 mg INHALATION q 4 H PRN Maggi (Kiran) MD Mark - estradiol 2 mg tab(s) (ESTRACE) 2 mg ORAL KEHINDE Y Maggi Jolley) MD Mark 2 mg at 05/27/20854 - pantoprazole DR 40 mg tab(s) (PROTONIX) 40 mg ORAL BEFOR E BREAKFAST DAILY Maggi (Kiran) MD Mark 40 mg at 05/27/2053 - sertraline 100 mg tab(s) ( ZOLOFT) 100 mg ORAL DAILY Maggi (Kiran) MD Mark 100 mg at 09/13/20 0853 - enoxaparin 40 mg injection (LOVENOX) 40 mg SUBCUTANE OUS DAILY Maggi (Kiran) MD Mark - NaCl 0.9% iv infusion 100 mL/hr INTRAVENOUS CONTINUOUS Maggi (Kiran) MD Mark 100 mL/hr at 05/27/20 1747 100 mL/hr at 05/27/20 174 - promethazine 25 mg tab(s) (PHENERGAN) 25 mg ORAL q 6 H PRN Maggi (Kiran) MD Mark 25 mg at 05/26/20 0411 - acetaminophen 650 mg tab(s) (TYLENOL) 650 mg ORAL q 4 H PRN Eduar (Res) Metry - hyoscyamine (LEVSIN) 0.125 mg tablet, Take 1 tablet by mouth every 6 hours as needed., Disp: 60 tablet, Rfl: 1 - sucralfate (CARAFATE) 1 gram tablet, Take 1 tablet by mout h four times daily., Disp: 30 tablet, Rfl: 0 - promethazine (PHENERGAN) 25 mg tablet, Take 1 tablet by mouth every 8 hours as needed (for nausea)., Disp: 10 tablet, Rfl: 0 - diphenhydrAMINE (BENADRYL) 25 mg capsule, Take 50 mg by mouth every 6 hours as needed., Disp: , Rfl: - estradiol (ESTRACE) 2 mg t ablet, Take 2 mg by mouth once daily., Disp: , Rfl: - Bifidobacterium Infantis (ALIGN) 4 mg cap, Take 1 capsule by mouth once daily., Disp: 30 capsule, Rfl: 2 - sertraline (ZOLOFT) 100 mg tablet, Davida e 1 tablet by mouth once daily., Disp: , Rfl: - QUEtiapine (SEROQUEL) 100 mg tablet, Take 1 tablet by mout h once daily., Disp: , Rfl: - albuterol HFA (VENTOLIN HFA) 90 mcg/actuation inhaler, Inh mae 2 Puffs as instructed every 4 hours as needed., Disp: , Rfl: - pantoprazole DR (PROTONIX) 40 mg table t, Take 1 tablet by mouth daily before breakfast. Take on empty stomach, 1/2 hr before meal., Disp: 30 tablet, Rfl: 3 Social History Tobacco Use - Smoking status: Former Smoker Packs/day: 0.50 Years: 3.00 Pack years: 1.50 Types: Cigarettes Quit date: 01/12/2017 Years since quittin.3 - Smokeless tobacco: Never Used - Tobacco comment: Approx. 3 cigarettes daily-1 pack every w [place] Substance Use Topics - Alcohol use: Yes Comment: Occasional - Drug use: Never FAMILY HISTORY Problem Relation Age of Onset - Diabetes Maternal Grandmother - Diabetes Maternal Grandfather - Lipids Maternal Grandfather - Stroke Maternal Grandfather - Coronary Artery Disease Maternal Grandfather - Cataract Maternal Grandfather - Pancreatic Cancer Maternal Grandfather - Diabetes Paternal Grandmother - Diabetes Paternal Grandfather - Coronary Artery Disease Paternal Grandfather - Thyroid Mother unsure of details - Arthritis Mother fibromyalgia - Blood Disease Mother blood clots, unsure of details (aorta?) - Breast Cancer Maternal Aunt - Lipids Maternal Uncle - Coronary Artery Disease Maternal Uncle - other (ovarian ca) Other maternal cousin PAST SURGICAL HISTORY Procedure Laterality Date - CHOLECYSTECTOMY HX - COLONOSCOPY 05/08/2020 poor prep, stool in entire colon, int hemorrhoids, diverticu losis - DANDC, DIAG AND/OR THERAPEUTIC - EGD 05/08/2020 gastritis, duodenitis, mild esophagitis, 2 cm hiatal hernia - LIGATE FALLOPIAN TUBE - PAST SURGICAL HISTORY OF uterine ablation - PAST SURGICAL HISTORY OF cyst removal - REMOVAL OF OVARY(S) 2009 Oophorectomy right, still has left - REMOVAL OF OVARY(S) 01/2015 left removed - TOTAL ABDOM HYSTERECTOMY 08/31/06 Hysterectomy, MICHELINE ROS: All of the following reviewed and negative except as no arnie below: GENERAL: no fever, chills, sweats, weight loss, fatigue, generalized weakness HEENT: no headache, vision changes, eye discomfort, hearing change, ear discomfort, sinus pain, nasal discharge or congestion, oral lesions, soreness, dental problem NECK: no adenopathy, discomfort, change in ROM CHEST: no shortness of breath, dyspnea on exertion, wheezi ng, cough, sputum production or chest pain HEART: no chest pain, palpitations, syncope ABDOMEN: no nausea, vomiting, constipation, diarrhea, abdomi nal pain : no dysuria, urgency, frequency, history of stones, incon tinence NEURO: no confusion or alteration in consciousness, sl urred speech, seizure, focal weakness EXTREMITIES: no new pain, edema, change in ROM HEME: no new adenopathy, bruises, petechiae PSYCH: no depression, anxiety, agitation PHYSICAL EXAMINATION: see below for new or abnormal findings BP 107/79 Pulse 66 Temp 36.4 ?C (97.5 ?F) (Oral) Resp 18 Ht 154.9 cm (5' 1) Wt 90.9 kg (200 lb 6.4 oz) LMP 08/10/2006 SpO2 97% BMI 37.87 kg/m? BMI 37.87 kg/(m2) *NOTE: I washed my hands prior to examination GENERAL: well nourished and developed; n o acute distress; alert and oriented x 3; intact judgement and insight HEENT: no evidence of trauma; cranial nerves intact; eyes cl ear EOMI; no hearing deficits apparent; nasal passages unremarkable; thro at and mucous membranes clear NECK: supple without lymphadenopathy; no JVD; no thyromegaly CHEST: clear bilaterally to auscultation; normal chest movement; no rales or rhonchi HEART: regular rate and rhythm, normal S 1 and S2, no murmurs, clicks, rubs, or gallops ABDOMEN: soft; Mildly distended; bowel sounds present; no he patomegaly; no splenomegaly; diffuse mild tenderness EXTREMITIES: no evidence of clubbing; no cyanosis; no deform ity; no joint effusion; no edema NEURO: cranial nerves intact; no focal deficits; no confusio n; no tremor; sensorium normal SKIN: no rash; no skin breakdown; no decubitus lesions HEME: no bruising; no adenopathy PSYCH: no evidence of depression; no anxiety; no agitation; no apparent hallucinations PAIN PSYCHIATRIC EXAM: GENERAL: alert, oriented to person, place, time JUDGMENT AND INSIGHT: intact APPEARANCE: neatly groomed DEMEANOR: coooperative, not hostile, mistrustful, preoccup ied, or demanding ACTIVITY: normal, not hyperactive or hypoactive, no tremors, tics EYE CONTACT: normal SPEECH: normal, rate, volume, articulation, coherence, spont aneity MOOD: normal, without overt sadness, grief, anxi ety, appropriate to situation IDEATION: normal and without suicidal or homicidal ideation MEMORY: intact ABNORMAL/NEW FINDINGS: NONE RADIOLOGY/DIAGNOSTICS: LABORATORY: CBC: Recent Labs 05/27/20 0458 WBC 6.15 RBC 3.88* HB 11.3 HCT 35.9 PLT 197 MCV 92.5 MCH 29.1 MPV 10.6 RDW 13.3 CMP: Recent Labs 05/27/20 0458 NA 140 K 3.5* CHLOR 106* CO2 24 BUN 7 CREAT 0.87 GLUC 82 CA 8.6 ANION 10 Heme: No results for input(s ): RETICP, ABSRETIC, LD, BORIS, FE, TIBC, TRANSFERSAT in the last 24 hours. ASSESSMENT ACTIVE PROBLEM LIST Routine gynecological examination Family history of diabetes mellitus Calculus of Kidney Allergic rhinitis, cause unspecified Migraine Without Aura Smoker Impaired Fasting Glucose Benign Liver Cyst Ovarian Cyst Generalized Anxiety Disorder Reactive Depression Adjustment Insomnia Encounter for Screening for Cardiovascular Disorders Bilateral Low Back Pain Without Sciatica Pain in Left Hip Greater Trochanteric Bursitis Hydronephrosis of Left Kidney Hydroureter On Left Right Facial Numbness Right Upper Extremity Numbness Numbness of Right Lower Extremity Weakness of Right Upper Extremity Weakness of Right Lower Extremity Vision Blurred Lumbar Spine Pain Cervical Spine Pain Abnormal Mri, Lumbar Spine Hydroureter, Left Lung Nodules Intractable Nausea and Vomiting PLAN: Prior to admission, intermit tent use of opiates, and considered opiate naive on admission. Currently undergoing evaluation for abdominal pain, nausea and emesis, with prior diagnosis of idiopathic pancreatitis. Oxycodone 10 mg Every 6 hours as needed. She is satisfied w this. Recommending conservative us e of opiates, at most, limited supply of opiates at discharge. MD Flakita Daniels RN, RN 05/28/2020 10:50 AM Signed PRE OP LEARNING ASSESSMENT PROCEDURE/SURGERY: GI PROCEDURES: EGD READINESS TO LEARN COGNITIVE ABILITY: Alert and oriented MOTIVATION TO LEARN: Interested FAMILY SUPPORT: Unable to assess - Family not present PATIENT LEARNS BEST BY: Verbal Instruction FACTORS AFFECTING LEARNING: None PHYSICAL LIMITATIONS AFFECTING LEARNING: None Electronically Signed By: VIN Kim DO 05/28/2020 12:16 PM Signed ANESTHESIOLOGY DAY OF SURGERY NOTE SERVICE DATE: 05/28/2020 SERVICE TIME: 12:15 PM : 1980 Procedure(s) (LRB): ENDOSCOPY UPPER GI W/ ULTRASOUND-GUIDED INTRAMURAL OR TRANSMURAL FINE NEEDLE ASPIRATION/BIOPSY(S), AND ULTRASOUND EXAM ESOPHAGUS (Left) Surgeon(s): Johnny Winn Estimated body mass index is 37.87 kg/m? as calculated from the following: Height as of this encounter: 154.9 cm (5' 1). Weight as of this encounter: 90.9 kg (200 lb 6.4 oz). Most recent hematocrit and potassium results: Hematocrit 32.2 05/28/2020 Potassium 2.9 05/28/2020 ANES DOS/PREOP NOTE: Vitals: 05/27/20 2005 05/28/20 0514 05/28/20 0727 05/28/20 1057 BP: 107/79 111/67 116/89 114/68 Pulse: 66 72 66 Resp: 18 18 16 16 Temp: 36.4 ?C (97.5 ?F) 36.6 ?C (97.9 ?F) 36.9 ?C (98.4 ?F) TempSrc: Oral Oral Oral SpO2: 97% 100% 100% 100% Weight: Height: ACTIVE PROBLEM LIST Routine gynecological examination Family history of diabetes mellitus Calculus of Kidney Allergic rhinitis, cause unspecified Migraine Without Aura Smoker Impaired Fasting Glucose Benign Liver Cyst Ovarian Cyst Generalized Anxiety Disorder Reactive Depression Adjustment Insomnia Encounter for Screening for Cardiovascular Disorders Bilateral Low Back Pain Without Sciatica Pain in Left Hip Greater Trochanteric Bursitis Hydronephrosis of Left Kidney Hydroureter On Left Right Facial Numbness Right Upper Extremity Numbness Numbness of Right Lower Extremity Weakness of Right Upper Extremity Weakness of Right Lower Extremity Vision Blurred Lumbar Spine Pain Cervical Spine Pain Abnormal Mri, Lumbar Spine Hydroureter, Left Lung Nodules Intractable Nausea and Vomiting PAST MEDICAL HISTORY Diagnosis Date - Allergic rhinitis, cause unspecified 05/17/2008 Spring and summer - Benign liver cyst 05/24/2010 CT scan at [facility] 11/2009 and 04/2010 showe 4 mm increase in size . No pain. No elevated LFTs on 03/11/2010. - Calculus of kidney 05/17/[address] Nicolas: Hospitalized age 20, a nd again later -- no procedures so far [facility] - Cancer (HCC) - Diverticulosis - Dysmenorrhea - Hemorrhoids - History of blood transfusion - Impaired fasting glucose 05/17/2008 Sugar 104 fasting, 04/21 - MIGRAINE 05/17/2008 Has used imitrex with good response; Keeps Vicodin on hand w hen needed; - Ovarian cyst 07/15/2012 - Pancreatitis - Smoker 05/17/2008 Started age 26, 1/2 a PPD PAST SURGICAL HISTORY Procedure Laterality Date - CHOLECYSTECTOMY HX - COLONOSCOPY 05/08/2020 poor prep, stool in entire colon, int hemorrhoids, diverticu losis - DANDC, DIAG AND/OR THERAPEUTIC - EGD 05/08/2020 gastritis, duodenitis, mild esophagitis, 2 cm hiatal hernia - LIGATE FALLOPIAN TUBE - PAST SURGICAL HISTORY OF uterine ablation - PAST SURGICAL HISTORY OF cyst removal - REMOVAL OF OVARY(S) 2009 Oophorectomy right, still has left - REMOVAL OF OVARY(S) 01/2015 left removed - TOTAL ABDOM HYSTERECTOMY 08/31/06 Hysterectomy, MICHELINE FAMILY HISTORY Problem Relation Age of Onset - Diabetes Maternal Grandmother - Diabetes Maternal Grandfather - Lipids Maternal Grandfather - Stroke Maternal Grandfather - Coronary Artery Disease Maternal Grandfather - Cataract Maternal Grandfather - Pancreatic Cancer Maternal Grandfather - Diabetes Paternal Grandmother - Diabetes Paternal Grandfather - Coronary Artery Disease Paternal Grandfather - Thyroid Mother unsure of details - Arthritis Mother fibromyalgia - Blood Disease Mother blood clots, unsure of details (aorta?) - Breast Cancer Maternal Aunt - Lipids Maternal Uncle - Coronary Artery Disease Maternal Uncle - other (ovarian ca) Other maternal cousin - Colon Cancer No Family History Social History: Social History Tobacco Use - Smoking status: Former Smoker Packs/day: 0.50 Years: 3.00 Pack years: 1.50 Types: Cigarettes Quit date: 01/12/2017 Years since quittin.3 - Smokeless tobacco: Never Used - Tobacco comment: Approx. 3 cigarettes daily-1 pack every w [place] Substance Use Topics - Alcohol use: Yes Comment: Occasional - Drug use: Never No current facility-administered medications on file prior t o encounter. Current Outpatient Medications on File Prior to Encounter Medication Sig - hyoscyamine (LEVSIN) 0.125 mg tablet T maninder 1 tablet by mouth every 6 hours as needed. - sucralfate (CARAFATE) 1 gram tablet Ta ke 1 tablet by mouth four times daily. - promethazine (PHENERGAN) 2 5 mg tablet Take 1 tablet by mouth every 8 hours as needed (for nausea). - diphenhydrAMINE (BENADRYL) 25 mg capsule Take 50 mg by mouth every 6 hours as needed. - estradiol (ESTRACE) 2 mg tablet Take 2 mg by mouth once [place]. - Bifidobacterium Infantis ( ALIGN) 4 mg cap Take 1 capsule by mouth once daily. - sertraline (ZOLOFT) 100 mg tablet Take 1 tablet by mouth o nce daily. - QUEtiapine (SEROQUEL) 100 mg tablet Take 1 tablet by mouth once daily. - albuterol HFA (VENTOLIN HFA) 90 mcg/actuation inhaler Inha le 2 Puffs as instructed every 4 hours as needed. - pantoprazole DR (PROTONIX) 40 mg tablet Take 1 tablet by mouth daily before breakfast. Take on empty stomach, 1/2 hr before meal. Current Facility-Administered Medications Medication Dose Route Frequency Provider Last Rate Last Dose - [MAR Hold due to Transfer] oxyCODONE I R 10 mg tab(s) (ROXICODONE) 10 mg ORAL q 6 H PRN Maggi (Kiran) MD Mark 10 mg at 05/28/20518 - [MAR Hold due to Transfer] sucralfate 1 g tab(s) (CARAFATE ) 1 g ORAL QID Maggi Jolley) MD Mark 1 g at 05/28/20918 - [MAR Hold due to Transfer] diphenhydrA MINE 50 mg (BENADRYL) 50 mg ORAL q 6 H PRN Maggi (Kiran) MD Mark 50 mg at 05/28/20518 - [MAR Hold due to Transfer] QUEtiapine 100 mg tab(s) (SEROquel) 100 mg ORAL DAILY Maggi (Kiran) MD Mark 100 mg at 05/27/202006 - [MAR Hold due to Transfer] albuterol 2.5 mg /3 mL (0.083 %) 2.5 mg (PROVENTIL) 2.5 mg INHALATION q 4 H PRN Maggi (Kiran) MD Mark - [MAR Hold due to Transfer] estradiol 2 mg tab(s) (ES TRACE) 2 mg ORAL DAILY Maggijoyce Jolley) MD Mark 2 mg at 05/27/20 0855 - [MAR Hold due to Transfer] pantoprazole DR 40 mg tab(s) (PROTONIX) 40 mg ORAL BEFORE BREAKFAST DAILY Maggi Jolley) MD Mark 40 mg at 0853 - [MAR Hold due to Transfer] sertraline 100 mg tab(s) (ZOLOF T) 100 mg ORAL DAILY Maggi (Kiran) MD Mark 100 mg at 05/28/20918 - [NOV Hold due to Transfer] enoxaparin 40 mg injection (DONTRELL ENOX) 40 mg SUBCUTANEOUS DAILY Maggi (Kiran) MD Mark - [NOV Hold due to Transfer] NaCl 0.9% iv infusion 100 mL/hr INTRAVENOUS CONTINUOUS Maggi (Kiran) MD Mark 100 mL/hr at 05/15 100 mL/hr at 05/28/20918 - [NOV Hold due to Transfer] promethazine 25 mg tab(s) (PHENERGAN) 25 mg ORAL q 6 H PRN Maggi (Kiran) MD Mark 25 mg at 05/28/20918 - [NOV Hold due to Transfer] acetaminoph en 650 mg tab(s) (TYLENOL) 650 mg ORAL q 4 H PRN Eudar (Res) Metry Allergies: ALLERGIES Allergen Reactions - Penicillins Rash - Cephalexin Itching - Chlorhexidine Rash Skin rash - Toradol [Ketorolac] Rash - Tramadol Rash - Asa [Salicylates] Other: See Comments ulcers - Contrast Dye [Iodin* Shortness of Breath - Ibuprofen GI Upset - Prednisone Other: See Comments makes agitated and mean DOS EXAM: Adequate NPO status: Yes Anesthetic risks, benefits, alternatives , personnel and consent discussed: Yes Patient agrees to proceed: Yes Previous Anesthesia: No history of adverse event. Airway Assessment: MP 2; Nec k ROM: Full ROM without neurologic symptoms; Airway Evaluation: Short Neck and Thick neck Symptoms of Sleep Apnea: BMI > 35 Dentition: Poor dentition Additional Physical Exam: Lungs: Patient health status unchanged since rec ent history and physical. See history and physical for exam findings. Cardiac: Patient health stat us unchanged since recent history and physical. See history and physical for exam findings. Additional Pertinent Findings: N/A Blood Products: Not anticipated for this procedure. Anesthetic Plan: MAC with Sedation and Standard ASA Monitors Pain Management Plan: Parenteral or Oral ASA Class: 2 Other Medical Problems: None Chronic Beta Lizandro medication administered within 24 hours : N/A I have interviewed and exami tracy the patient. I have reviewed the medical record and/or the pre-anesthesia evaluation, pertinent labs, and te st results. Significant changes in the patient's con dition since the History and Physical, not otherwise documented in primary service progress notes: No This contains updated inform ation obtained within 48 hours of Surgery/Procedure. SIGNATURE: Delon Duenas DO PATIENT NAME: Sally caldwell DATE: May 28, 2020 TIME: 12:15 PM CSN: [id number] history physical on 2020-05-25 HISTORY HNO ID: [id number] Normal 05-25-2020 [place] PHYSICAL Author: Maggi Flores MD General Service: Hospital Medicine Medical Author Type: Resident Center Type: [facility] ([id number]) Filed: 05/25/2020 5:42 PM Note Text: Attestation signed by Rob Valladares at 05/25/2020 6:27 PM Attending Note I discussed with resident. The patient was not examined by the attending. I reviewed the resident's note. I agree with the herman apodaca's assessment and plan unless otherwise noted. Signature: Rob Valladares MD Date: 05/25/2020. Time: 6:27 PM HOUSE MEDICINE SERVICE HISTORY AND PHYSICAL SERVICE DATE: May 25, 2020 SERVICE TIME: 4:00 PM NIGHT AND WEEKEND COVERAGE: From 6 AM to 5 PM: You may reach the House Medicine internal medicine physician currently assigned to this patient by findin g their pager number on the treatment team (they will be assigned as the i ntern or resident). It is the last four digits in the phone number be ginning with ([phone]). We encourage the use of Epic Secure Chat. PCP: Marcelino Mejia MD Admitting Attending: No admitting provider for patient sundar sandy. SUBJECTIVE Chief Complaint: Intractable nausea and vomiting HPI: Sally Mcgregor is a 39 year old F PMHx idiopathic panc reatitis, hepatic cysts presenting to the ED with intractable nausea a nd vomiting as well as RUQ abdominal pain for the past 3 days. States that she called her GI doctor Dr. Winn and he told her to come into the ED. Noe shannon has a scope scheduled for 05/[address] Winn. Was given pain medicatio ns and 1L NS bolus in the ED. Hemodynamically stable in the ED. CT abdome n/pelvis showing known hepatic cysts, however no signs of pancreatiti s. Lipase and WBC count normal. When evaluated by me, still endorsing RUQ abdominal pain and nausea, but no vomiting since presentation to the ED. Review of Systems: GENERAL: No weight loss, malaise or fevers RESPIRATORY: Negative for cough, hemoptysis, wheezing, COPD, dyspnea or shortness of breath CARDIOVASCULAR: Negative for chest pain, leg swelling, hyper tension, CHF or palpitations GI: Positive for nausea, vomiting, RUQ abdominal pain : No history of dysuria, frequency or incontinence MUSCULOSKELETAL: Negative for joint pain or swelling, back p ain or muscle pain SKIN: Negative for lesions, rash, and itching PAST MEDICAL HISTORY Diagnosis Date - Allergic rhinitis, cause unspecified 05/17/2008 Spring and summer - Benign liver cyst 05/24/2010 CT scan at [facility] 11/2009 and 04/2010 showe 4 mm increase in size . No pain. No elevated LFTs on 03/11/2010. - Calculus of kidney 05/17/[address] Nicolas: Hospitalized age 20, and again later -- no procedures so far ([facility], [facility], 1995 [facility]) - Cancer (HCC) - Diverticulosis - Dysmenorrhea - Hemorrhoids - History of blood transfusion - Impaired fasting glucose 05/17/2008 Sugar 104 fasting, 04/21 - MIGRAINE 05/17/2008 Has used imitrex with good response; Keeps Vicodin on hand w hen needed; - Ovarian cyst 07/15/2012 - Pancreatitis - Smoker 05/17/2008 Started age 26, 1/2 a PPD PAST SURGICAL HISTORY Procedure Laterality Date - CHOLECYSTECTOMY HX - COLONOSCOPY 05/08/2020 poor prep, stool in entire colon, int hemorrhoids, diverticu losis - DANDC, DIAG AND/OR THERAPEUTIC - EGD 05/08/2020 gastritis, duodenitis, mild esophagitis, 2 cm hiatal hernia - LIGATE FALLOPIAN TUBE - PAST SURGICAL HISTORY OF uterine ablation - PAST SURGICAL HISTORY OF cyst removal - REMOVAL OF OVARY(S) 2009 Oophorectomy right, still has left - REMOVAL OF OVARY(S) 01/2015 left removed - TOTAL ABDOM HYSTERECTOMY 08/31/06 Hysterectomy, MICHELINE FAMILY HISTORY Problem Relation Age of Onset - Diabetes Maternal Grandmother - Diabetes Maternal Grandfather - Lipids Maternal Grandfather - Stroke Maternal Grandfather - Coronary Artery Disease Maternal Grandfather - Cataract Maternal Grandfather - Pancreatic Cancer Maternal Grandfather - Diabetes Paternal Grandmother - Diabetes Paternal Grandfather - Coronary Artery Disease Paternal Grandfather - Thyroid Mother unsure of details - Arthritis Mother fibromyalgia - Blood Disease Mother blood clots, unsure of details (aorta?) - Breast Cancer Maternal Aunt - Lipids Maternal Uncle - Coronary Artery Disease Maternal Uncle - other (ovarian ca) Other maternal cousin Social History Tobacco Use - Smoking status: Former Smoker Packs/day: 0.50 Years: 3.00 Pack years: 1.50 Types: Cigarettes Quit date: 01/12/2017 Years since quittin.3 - Smokeless tobacco: Never Used - Tobacco comment: Approx. 3 cigarettes daily-1 pack every w [place] Substance Use Topics - Alcohol use: Yes Comment: Occasional - Drug use: Never Medications: (Not in a hospital admission) ALLERGIES Allergen Reactions - Penicillins Rash - Cephalexin Itching - Chlorhexidine Rash Skin rash - Asa [Salicylates] Other: See Comments ulcers - Contrast Dye [Iodin* Shortness of Breath - Ibuprofen GI Upset - Prednisone Other: See Comments makes agitated and mean OBJECTIVE: Vital Signs: BP 110/62 Pulse 72 Temp (Src) 97.9 (Oral) Resp 15 Ht 5' 1 (1.55m) Wt 198 lb (89.8kg) SpO2 96% LMP 08/10/20 06 BMI 37.43 kg/(m2). O2 Therapy: Room Air Physical Exam Performed: GENERAL: Obese, Alert, Mild Distress, Cooperative LUNGS: Lungs clear to auscultation, Good diaphragmatic excur matias CARDIAC: Normal S1 and S2; no rubs, murmurs, or gallops ABDOMEN: Soft, BS normal, no masses or organomegaly, tender to palpation in the RUQ EXTREMITIES: Extremities normal, no deformities, edema, club konstantin or skin discoloration. Good capillary refill., No ulcers PULSES: 2+ radial, 2+ carotid The remainder of the physical exam is noncontributory. Lines, Drains, and Airways Line Peripheral 05/25/20 0636 Left Antecubital 20 Gauge less than 1 day Reviewed lines and needs to be continued: REASONS: Intraveno us fluids Data: Recent Labs 05/25/20 0658 WBC 8.43 RBC 4.29 HB 12.1 HCT 39.7 PLT 254 MCV 92.5 MCH 28.2 MPV 11.0 RDW 13.7 Recent Labs 05/25/20 0658 GLUC 95 NA 139 K 3.6* CHLOR 104 CO2 24 CREAT 0.95 BUN 11 ANION 11 CA 9.7 TPROT 8.0 ALB 4.8 TBILI 0.4 ALKPHOS 98 AST 14 ALT 12 Recent Labs 05/25/20 0658 GLUC 95 Patient discussed with Rob Valladares Assessment/Plan Problem List Intractable nausea and vomiting Intractable nausea and vomiting Associated with RUQ abdominal pain Hx of pancreatitis, however no evidence on labs or imaging CT abdomen/pelvis showing known hepatic cysts but otherwise fairly unremarkable NS @ 100 Continue supportive care and symptomatic relief Will consult Dr. Winn of GI for possible inpatient endosco py Medication and Non-Pharmacologic VTE Prophylaxis/Anticoagula nts VTE Prophylaxis: VTE prophylaxis appropriate GI Prophylaxis: Not indicated Telemetry: Not indicated Disposition: Home Code Status: Not on file Plan of care discussed with: Provider, RN, Patient SIGNATURE: Maggi Flores MD PATIENT NAME: Sally james DATE: May 25, 2020 TIME: 5:28 PM hemogram/diff on 03-06-11 Abs Immature Grans 0.09 0.00-0.05 thou/cmm High 05-25-2020 [facility] (00 000) Comment: Performed By: #### [id number] ### # [place] [address] Abs Neut (ANC) 3.14 1.56-6.13 thou/cmm Normal 05-25-2020 [facility] ([id number]) Comment: Performed By: #### [id number] ### # [facility] [address] [place], [place] [address] Abs. Baso 0.06 0.01-0.08 thou/cmm Normal 05-25-2020 [facility] ([id number]) Comment: Result Comment: Smear scanne d; tech agrees with automated differential Performed By: #### [id number] ### # [facility] [address] [place], [place] [address] Abs. Curry 0.50 0.27-0.70 thou/cmm Normal 05-25-2020 [facility] ([id number]) Comment: Performed By: #### [id number] ### # [facility] [address] [place], [place] [address] Basophils/100 WBC (Bld) 0.7 % Normal 2019 [facility] ([id number]) Comment: Performed By: #### [id number] ### # [facility] [address] [place], [place] [address] Eosinophils (Bld) 0.30 0.00-0.31 thou/cmm Normal 05-25-2020 [facility] [#/Vol] [facility] (82085) Comment: Performed By: #### CBCD1 ### # [facility] [address] [place], [place] [address] Eosinophils/100 WBC (Bld) 3.6 % Normal 05-15 [facility] (14999) Comment: Performed By: #### [id number] ### # [facility] [address] [place], [place] [address] Immature Grans 1.10 % Normal 05-25-2020 [facility] ([id number]) Comment: Performed By: #### [id number] ### # [facility] [address] [place], [place] [address] Lymphocytes (Bld) [#/Vol] 4.34 1.18-3.74 thou/cmm High 05-15 [facility] (00 000) Comment: Performed By: #### [id number] ### # [facility] [address] [place], [place] [address] Lymphocytes/100 WBC (Bld) 51.5 % Normal 05-15 [facility] ([id number]) Comment: Performed By: #### [id number] ### # [facility] [address] [place], [place] [address] Monocytes/100 WBC (Bld) 5.9 % Normal 2019 [facility] ([id number]) Comment: Performed By: #### [id number] ### # [facility] [address] [place], [place] [address] Seg Neutrophil 37.2 % Normal 05-25-2020 [facility] ([id number]) Comment: Performed By: #### [id number] ### # [facility] [address] [place], [place] [address] Erythrocyte distribution 13.7 11.7-14.4 % Normal 05-25 [facility] width (RBC) [Ratio] System (38221) Comment: Performed By: #### CBCD1 ### # [facility] [address] [place], [place] [address] Hematocrit (Bld) [Volume 39.7 34.1-44.9 % Normal 05-25 [facility] fraction] System (00 000) Comment: Performed By: #### CBCD1 ### # [facility] [address] [place], [place] [address] Hemoglobin (Bld) 12.1 11.2-15.7 g/dL Normal 05-25-2020 [facility] [Mass/Vol] System (0 0000) Comment: Performed By: #### CBCD1 ### # [facility] [address] [place], [place] [address] MCH (RBC) [Entitic mass] 28.2 25.6-32.2 pg Normal 05-25 [facility] (00 000) Comment: Performed By: #### CBCD1 ### # [facility] [address] [place], [place] [address] MCHC (RBC) [Mass/Vol] 30.5 31.6-34.8 % Low 05-25-20 20 [facility] (61204) Comment: Performed By: #### CBCD1 ### # [address] [address] MCV (RBC) [Entitic vol] 92.5 79.4-94.8 fl Normal 2019 [facility] (00 000) Comment: Performed By: #### CBCD1 ### # [facility] [address] [place], [place] [address] Platelet mean volume (Bld) 11.0 9.4-12.3 fl Normal [facility] [Entitic vol] System ([id number]) Comment: Performed By: #### CBCD1 ### # [facility] [address] [place], [place] [address] Platelets (Bld) [#/Vol] 254 182-369 thou/cmm Normal 2019 [facility] (00 000) Comment: Performed By: #### [id number] ### # [facility] [address] [place], [place] [address] RBC (Bld) [#/Vol] 4.29 3.93-5.22 mil/cmm Normal 05-25-2020 [facility] (00 000) Comment: Performed By: #### CBCD1 ### # [facility] [address] [place], [place] [address] RDW SD 46.5 36.4-46.3 fl High 05-25-2020 [facility] ([id number]) Comment: Performed By: #### [id number] ### # [facility] [address] [place], [place] [address] WBC (Bld) [#/Vol] 8.43 3.98-10.04 thou/cmm Normal 05-25-2020 [facility] (00 000) Comment: Performed By: #### [id number] ### # [facility] [address] [place], [place] [address] ed prov note on ED PROV NOTE HNO ID: [id number] Normal 05-25-20 [facility] Author: Johnnie Long MD Center ([id number]) Service: Emergency Medicine Author Type: Physician Type: ED Provider Notes Filed: 05/26/2020 12:14 AM Note Text: ED Resident Continuation of Care Note May 25, 2020 4:09 PM Sally Mcgregor was endorsed to me by Dr. Miranda Briefly, the patient initially presented to the ED for Abdom inal pain Signout note reviewed. Labs returned and were unremarkable. Patient has CT iodine c ontrast allergy so we had to give steroids and Benadryl prior to the CT. Patient was given 2 doses of Dilaudid while here for pain control. Skyler maciel went to CT without issue, CT demonstrated no acute abnormality ju st chronic findings including hepatic cyst and fatty liver. Patient mira l be admitted to the medical service for management of her nausea and vomi ting and pain control. MD Duran Lucas (Res) MD Ignacio Resident 05/25/20 1610 Johnnie Long MD 05/26/20 0014 ED PROV NOTE HNO ID: [id number] Normal 05-25-20 [facility] Author: Johnnie Long MD [place] ([id number]) Service: Emergency Medicine Author Type: Physician Type: ED Provider Notes Filed: 05/26/2020 12:13 AM Note Text: ED Provider Note Patient Name: Sally Mcgregor SERVICE DATE: 05/25/20 History Patient presents with: Abdominal Pain: Patient sent to ED by Dr. Chinchilla. Patient has known cyst on liver that is 9cm, recently had pancreatitis and is due for a ultrasound pancreas scope on Thursday. Patient havng sharp RUQ pain radi ating down side, patient having n/v/d since Thursday. States small amoun t of hematemesis last night, taking Tylenol for pain. Patient den ies fevers/chills, urinary changes. Seen in February for pancreatiti s. This is a 39-year-old female with history of pancreatitis pr esenting to the emergency room for abdominal pain. Patient has been havi ng epigastric and RUQ abdominal pain with radiation to her back since night. Patient was seen at [facility] on Thursday night where sh shiva was given fluids, told her labs looked fine and was discharged home. Skyler maciel follows with Dr. Winn for GI as she has a 9 cm cyst in her liver and history of pancreatitis. Patient is scheduled for endoscopy and ultrasound on Thursday. She states that Dr. Winn told her t o come to [facility] ED for specific type of imaging but she cannot recall what kind. She states that she has been having continued abdomina l pain with nausea and hematemesis. Patient also reports diarrhea with b lood in her stools but states that this is normal for her she has hemorr hoids. Patient denies any chest pain or shortness of breath. Patien t denies any urinary symptoms. Patient has had a cholecystectomy and tota l hysterectomy in the past. ? Suicide Assessment Five-step Evaluation an d Triage? (SAFE-T) for Mental Health Professionals ? 1? IDENTIFY RISK FACTORS ? Note those that can be modified to reduce risk ? ? ? 2? IDENTIFY PROTECTIVE FACTORS ? Note those that can be enhanced ? ? ? 3? CONDUCT SUICIDE INQUIRY ? Suicidal thoughts, plans, behavior and inte nt ? ? ? 4? DETERMINE RISK LEVEL / INTERVENTION ??? Determine risk. Choose appropriate intervention to addre ss and reduce risk ? ? ? 5? DOCUMENT ? Assessment of risk,rationale, intervention a nd follow up ? Suicide assessments should be conducted at first contact, wi th any subsequent suicidal behavior, increased ideation, or pertine nt clinical Change; for inpatients, prior to increasing privileges and a t discharge. ? 1.??? RISK FACTORS v Suicidal behavior: history of prior suicide attempts, abor arnie suicide attempts or self-injurious behavior v Current/past psychiatric disorders: especially mood disord ers, psychotic disorders, alcohol/substance abuse, ADHD, TBI, PTSD, Cluster B personality disorders, conduct disorders (antisoci al behavior, aggression, impulsivity). Co-morbidity and recent onset of illness increase risk v Guzman Symptoms: anhedonia, impulsivity, hopelessness, anxiet y/panic, insomnia, command hallucinations v Family history: of suicide, attempts, or [place] 1 psychiatri c disorders requiring hospitalization v Precipitants/Stressors/Interpersonal: triggering events le ading to humiliation, shame or despair (e.g; loss of relationship, fi nancial or Health status-real or anticipated). Ongoing medical illness (zohreh. [employer] CAPTAIN disorders, pain). Intoxication. Family turmoil/chaos. Histor y of Physical or sexual abuse. Social isolation. v Change in treatment: discharge from psychiatric hospital, provider or treatment change v Access to firearms 2.??? PROTECTIVE FACTORS protective factors, even if present , may not counteract significant acute risk v Internal: ability to cope with stress, jain beliefs, frustration tolerance v External: responsibility to children or beloved pets, posi tive therapeutic relationships, social supports 3.??? SUICIDE INQUIRY Specific questioning about thoughts, p lans, behaviors, intent v Ideation: frequency, intensity, duration- - in last 48 chavez rs, past month and worst ever v Plan: timing, location, lethality, availability, preparato ry acts v Behaviors: past attempts, aborted attempts, rehearsals (ty ing noose, loading gun), vs. non -suicidal self injurious actions v Intent: extent to which the patient (1) expects to carry o ut the plan and (2) believes the plan/act to be lethal vs. self-injuriou s; Explore ambivalence: reasons to vs. reasons to live *For Youths: ask parent/guardian about evidence of suicidal thoughts, plans, or behaviors, and changes in mood, behaviors or dispo sition * Homicide Inquiry: when indicated, zohreh. in character disord ered or paranoid males dealing with loss or humiliation. Inquire in four areas listed above. ? 4.? RISK LEVEL/INTERVENTION ? v Assessment of risk level is based on cli nical judgment, after completing steps 1-3 ? v Reassess as patient or environmental cir cumstances change ? RISK LEVEL RISK/PROTECTIVE FACTOR SUICIDALITY POSSIBLE INTER VENTIONS ? ? High Psychiatric disorders with severe symptoms, or acute pr ecipitating event; protective factors not relevant Potentially lethal churchill icide attempt or persistent ideation with strong intent or suicide rehears al Admission generally indicated unless a significant change reduces risk . Suicide precautions ? ? Moderate Multiple risk factors, few protective factors Suici milo ideation with plan, but no intent or behavior Admission may be necess bryant depending on risk factors. Develop crisis plan. Give emergency/crisis numbers ? ? Low Modifiable risk factors, strong protective factors Thoug hts of , no plan, intent or behavior Outpatient referral, symptom red uction. Give emergency/crisis numbers ? 5.? DOCUMENT Risk level and rationale; treatment blanca n to address/reduce current risk (e.g; setting, medication, psych otherapy, E.C.T, contact with significant others, consultations); fire arm instructions, if relevant; follow up plan. For youths, treat ment plan should include roles for parent / guardian. ? ? SUICIDE RISK LEVEL: low RATIONALE FOR RISK LEVEL (see above): Ideation: no; Plan: no ; Intent: no; Suicidal or Self-harm Behaviors:no; Access to Firearms: no; Other Risk Factors: no; Protective Factors: yes PLAN TO ADDRESS RISK LEVEL: Environment/Sit (order sits for high/moderate risk): no sitter needed; ? If hospitalized on an Inpatient Behavioral Health Unit, Suic kostas risk level should be considered: low PAST MEDICAL HISTORY Diagnosis Date - Allergic rhinitis, cause unspecified 05/17/2008 Spring and summer - Benign liver cyst 05/24/2010 CT scan at [facility] 11/2009 and 04/2010 showe 4 mm increase in size . No pain. No elevated LFTs on 03/11/2010. - Calculus of kidney 05/17/[address] Nicolas: Hospitalized age 20, and again later -- no procedures so far [facility]) - Cancer (HCC) - Diverticulosis - Dysmenorrhea - Hemorrhoids - History of blood transfusion - Impaired fasting glucose 05/17/2008 Sugar 104 fasting, 04/21 - MIGRAINE 05/17/2008 Has used imitrex with good response; Keeps Vicodin on hand w hen needed; - Ovarian cyst 07/15/2012 - Pancreatitis - Smoker 05/17/2008 Started age 26, 1/2 a PPD PAST SURGICAL HISTORY Procedure Laterality Date - CHOLECYSTECTOMY HX - COLONOSCOPY 05/08/2020 poor prep, stool in entire colon, int hemorrhoids, diverticu losis - DANDC, DIAG AND/OR THERAPEUTIC - EGD 05/08/2020 gastritis, duodenitis, mild esophagitis, 2 cm hiatal hernia - LIGATE FALLOPIAN TUBE - PAST SURGICAL HISTORY OF uterine ablation - PAST SURGICAL HISTORY OF cyst removal - REMOVAL OF OVARY(S) 2009 Oophorectomy right, still has left - REMOVAL OF OVARY(S) 01/2015 left removed - TOTAL ABDOM HYSTERECTOMY 08/31/06 Hysterectomy, [facility] FAMILY HISTORY Problem Relation Age of Onset - Diabetes Maternal Grandmother - Diabetes Maternal Grandfather - Lipids Maternal Grandfather - Stroke Maternal Grandfather - Coronary Artery Disease Maternal Grandfather - Cataract Maternal Grandfather - Pancreatic Cancer Maternal Grandfather - Diabetes Paternal Grandmother - Diabetes Paternal Grandfather - Coronary Artery Disease Paternal Grandfather - Thyroid Mother unsure of details - Arthritis Mother fibromyalgia - Blood Disease Mother blood clots, unsure of details (aorta?) - Breast Cancer Maternal Aunt - Lipids Maternal Uncle - Coronary Artery Disease Maternal Uncle - other (ovarian ca) Other maternal cousin Social History Tobacco Use - Smoking status: Former Smoker Packs/day: 0.50 Years: 3.00 Pack years: 1.50 Types: Cigarettes Quit date: 01/12/2017 Years since quittin.3 - Smokeless tobacco: Never Used - Tobacco comment: Approx. 3 cigarettes daily-1 pack every w [place] Substance and Sexual Activity - Alcohol use: Yes Comment: Occasional - Drug use: Never - Sexual activity: Yes Partners: Male control/protection: Surgical Comment: [facility] ALLERGIES Allergen Reactions - Penicillins Rash - Cephalexin Itching - Chlorhexidine Rash Skin rash - Asa [Salicylates] Other: See Comments ulcers - Contrast Dye [Iodin* Shortness of Breath - Ibuprofen GI Upset - Prednisone Other: See Comments makes agitated and mean Review of Systems Constitutional: Negative for chills, fatigue and fever. HENT: Negative for facial swelling, rhinorrhea, sore throat and trouble swallowing. Eyes: Negative for photophobia and visual disturbance. Respiratory: Negative for cough, chest tightness, shortness of breath and wheezing. Cardiovascular: Negative for chest pain, palpitations and le g swelling. Gastrointestinal: Positive for abdominal distention, abdomin al pain, blood in stool, diarrhea, nausea and vomiting. Negative for consti pation. Genitourinary: Negative for difficulty urinating, dysuria an d hematuria. Musculoskeletal: Negative for back pain and myalgias. Skin: Negative for color change and rash. Neurological: Negative for dizziness, weakness, light-headed ness, numbness and headaches. Psychiatric/Behavioral: Negative for confusion and hallucina tions. All other systems reviewed and are negative. Physical Exam BP 123/96 Pulse 75 Temp (Src) 97.9 (Oral) Resp 18 Ht 5' 1 (1.55m) Wt 198 lb (89.8kg) SpO2 98% LMP 08/10/2006 BMI 37.43 kg/(m2). O2 Therapy: Room Air Physical Exam Vitals signs and nursing note reviewed. Constitutional: General: She is in acute distress. Appearance: Normal appearance. She is not ill-appearing. HENT: Head: Normocephalic and atraumatic. Mouth/Throat: Mouth: Mucous membranes are moist. Pharynx: No oropharyngeal exudate or posterior oropharyngeal erythema. Eyes: Extraocular Movements: Extraocular movements intact. Conjunctiva/sclera: Conjunctivae normal. Pupils: Pupils are equal, round, and reactive to light. Cardiovascular: Rate and Rhythm: Normal rate and regular rhythm. Pulses: Normal pulses. Heart sounds: Normal heart sounds. No murmur. No friction ru b. No gallop. Pulmonary: Effort: Pulmonary effort is normal. No respiratory distress. Breath sounds: Normal breath sounds. No wheezing. Chest: Chest wall: No tenderness. Abdominal: General: Abdomen is flat. Bowel sounds are normal. There is no distension. Palpations: Abdomen is soft. Tenderness: There is abdominal tenderness in the right upper quadrant and epigastric area. There is right CVA tenderness. There is no guarding or rebound. Musculoskeletal: Normal range of motion. General: No deformity. Skin: General: Skin is warm and dry. Findings: No bruising or rash. Neurological: General: No focal deficit present. Mental Status: She is alert and oriented to person, place, a nd time. Motor: No weakness. Psychiatric: Mood and Affect: Mood normal. Behavior: Behavior normal. Diagnostic Testing ED Labs Ordered and Reviewed COMPREHENSIVE METABOLIC PANEL (AK,AV,EU,FV,HL,JAS,MM,SP) LIPASE BLOOD (AK,AV,EU,FV,HL,JAS,MM,SP) CBC + AUTO DIFF (AK,AV,EU,FV,HL,JAS,MM,SP) URINALYSIS WITH MICROSCOPIC (AK,AV,EU,FV,HL,JAS,MM,SP) Procedures ED Course / Clinical Impression Clinical Impressions as of May 26 13 Intractable nausea and vomiting Right upper quadrant abdominal pain MDM / Disposition / Plan 39 year old female presents with RUQ + epigastric pain for 3 days. On initial assessment patient was found non-toxic, no acute dis tress, afebrile and vitals hemodynamically stable. Differential inc ludes but not limited to kidney stone, ruptured liver cyst, pancreatitis, appendicitis. Patient given fluids, morphine for pain and Zofran for nause a. CMP showed no significant abnormalities. Lipase was within normal limit s. CBC showed no evidence for leukocytosis or acute anemia. UA show ed no evidence for infection. Patient was having continued pain wa s given fentanyl 50 mcg. I attempted to contact Dr. Winn however d id not get a response. Patient signed out to Dr. Pierre pending imaging an d dispo. ED Signout Note May 25, 2020 8:[address] Duran Pierre The patient initially presented to the ED for: Abdominal daniele n Pending items are: Consult: Dr. Winn Labs:none Imaging:CT abdomen vs other imaging request per Dr. Winn Dispo and Plan: Patient will need to be admitted for intract able pain, nausea, vomiting, diarrhea. If Dr. Winn responds with imag ing request, then do imaging. If Dr. Winn does not respond, do CT abdom en with IV contrast. Signed out in stable condition at 8:00 AM May 25, [address] Pierre note for further events and disposition. Yahir Miranda MD SIGNATURE: MD Yahir Doll (Res) MD Ruben Resident 05/25/20 0804 Attending Note I evaluated the patient and personally participated in the k ey components. I agree with the resident's findings and plan as documented and have discussed the case and management of the patient's care with the resident. Signature: Johnnie Long MD Date: 05/26/2020 Time: 12:13 AM Johnnie Long MD 05/26/20 0013 ed note on ED NOTE HNO ID: [id number] Normal 05-25-2020 [facility] Author: Katharine Gonzalez RN [place] ([id number]) Service: Emergency Medicine Author Type: Registered Nurse Type: ED Notes Filed: 05/25/2020 6:31 PM Note Text: RN unavailable for report at 1830 ED NOTE HNO ID: [id number] Normal 05-25-2020 [facility] Author: Katharine Gonzalez RN [place] ([id number]) Service: Emergency Medicine Author Type: Registered Nurse Type: ED Notes Filed: 05/25/2020 5:58 PM Note Text: Dr. Mukherjee notified pt asking for something for pain. ED NOTE HNO ID: [id number] Normal 05-25-2020 [facility] Author: Katharine Gonzalez RN [place] ([id number]) Service: Emergency Medicine Author Type: Registered Nurse Type: ED Notes Filed: 05/25/2020 4:00 PM Note Text: Covid swab obtained and sent. ED NOTE HNO ID: [id number] Normal 05-25-2020 [facility] Author: Katharine Gonzalez RN [place] ([id number]) Service: Emergency Medicine Author Type: Registered Nurse Type: ED Notes Filed: 05/25/2020 3:08 PM Note Text: Pt to CT by cart. ED NOTE HNO ID: [id number] Normal 05-25-2020 [facility] Author: Katharine Gonzalez RN [place] ([id number]) Service: Emergency Medicine Author Type: Registered Nurse Type: ED Notes Filed: 05/25/2020 11:55 AM Note Text: Pt complains of heat flash Temperature adjusted. Resp unla bored. ED NOTE HNO ID: [id number] Normal 05-25-2020 [facility] Author: Katharine Gonzalez RN [place] ([id number]) Service: Emergency Medicine Author Type: Registered Nurse Type: ED Notes Filed: 05/25/2020 10:42 AM Note Text: Pt complains of itching after Dilaudid. No hives or SOB note dAzul Pierre notified and no orders received. Pt given ice. ED NOTE HNO ID: [id number] Normal 05-25-2020 [facility] Author: Katharine Gonzalez RN [place] ([id number]) Service: Emergency Medicine Author Type: Registered Nurse Type: ED Notes Filed: 05/25/2020 7:15 AM Note Text: Dr. Miranda notified pt needs SAFE-T form completed. ct abd/pel w ivcon on 2020-05-25 CT ABD/PEL W Final Report Normal 05-25-2020 [facility] DATE OF EXAM: May 25 2020 3:15PM [facility] 0530 - CT ABD/PEL W IVCON / ([id number]) PROCEDURE REASON: Nausea, vomiting Physician Interpretation EXAMINATION: CT ABDOMEN AND PELVIS WITH IV CONTRAST CLINICAL HISTORY: Right upper quadrant pain TECHNIQUE: CT of the abdomen and pelvis was performed using standard technique, scanning from just above the dome of the diaphrag m to the symphysis pubis. MQ: CTAP_3 Contrast: IV: 150 ml of Omnipaque 300 : ml of CT Radiation dose: Integrated Dose-length product (DLP) for this visit = [address] Dose Reduction Employed: Automated exposure control(AEC) and iterative recon COMPARISON: None. RESULT: Liver: There are findings suggestive of the fatty infiltrati on of the liver. Multiple hepatic cysts are noted. The largest is note d in the dome of the right lobe of liver measuring 9.5 x 6.4 cm. Biliary: The gallbladder is surgically absent. No biliary du ctal dilatation is identified. Spleen: No mass. No splenomegaly. Pancreas: No mass or duct dilation. Adrenals: No mass. Kidneys: No hydronephrosis is identified. There is a nonobst ructive 2 mm stone in the lower pole the right kidney. Two punctate nonob structive stones are present in the mid to lower pole left kidney. GI tract: No dilation or wall thickening. The appendix is no t identified. Lymph nodes: No abdominal or pelvic lymphadenopathy. Mesentery/Peritoneum: No ascites or mass. Retroperitoneum: No mass. Vasculature: The celiac axis and SMA are patent. The portal vein and branches, splenic vein, SMV, and hepatic veins are patent. Pelvis: No mass, ascites or fluid collection. The uterus is surgically absent. Bones/Soft Tissues: Mild degenerative changes are noted in t he thoracic and lumbar spine. Lower thorax: Mild linear densities are noted in the lower l obe suggestive of small areas of atelectasis. Pelt Shearer (topogram) images: IMPRESSION: 1. No acute intra-abdominal/pelvic abnormalities are identif ied. 2. Bilateral nephrolithiasis. No hydronephrosis is identifie d. 3. Multiple hepatic cysts measuring up to 9.5 cm. 4. Findings consistent with fatty infiltration of liver. Parts Department Manager: PSCAudrey Transcribe Date/Time: May 25 2020 3:16P Dictated by : ALICE ALCARAZ MD This examination was interpreted and the report reviewed and electronically signed by: ALICE ALCARAZ MD on May 25 2020 3:27PM EST comprehensive metabolic panel on 2020-05-25 Albumin [Mass/Vol] 4.8 3.9-4.9 g/dL Normal 05-25-2020 [facility] ([id number]) Comment: Performed By: #### CMP #### [facility] [address] [place], [place] [address] ALP [Catalytic activity/Vol] 98 34-123 U/L Normal 0 05-25-2020 [facility] (00 000) Comment: Performed By: #### CMP #### [facility] [address] [place], [place] [address] ALT [Catalytic activity/Vol] 12 7-38 U/L Normal 0 05-25-2020 [facility] (00 000) Comment: Performed By: #### CMP #### [facility] [address] [place], [place] [address] Anion gap [Moles/Vol] 11 9-18 mmol/L Normal 05-25-20 [facility] ([id number]) Comment: Performed By: #### CMP #### [facility] [address] [place], [place] [address] AST [Catalytic activity/Vol] 14 13-35 U/L Normal 0 05-25-2020 [facility] (00 000) Comment: Performed By: #### CMP #### [facility] [address] [place], [place] [address] Bilirubin [Mass/Vol] 0.4 0.2-1.3 mg/dL Normal 0 [facility] ([address]) Comment: Performed By: #### CMP #### [facility] [address] [place], [place] [address] Calcium [Mass/Vol] 9.7 8.5-10.2 mg/dL Normal 05-25-2020 [facility] (07857) Comment: Performed By: #### CMP #### [facility] [address] [place], [place] [address] Chloride [Moles/Vol] 104 97-105 mmol/L Normal 0 [facility] (88971) Comment: Performed By: #### CMP #### [facility] [address] [place], [place] [address] CO2 Blood 24 22-30 mmol/L Normal 05-25-2020 [facility] ([id number]) Comment: Performed By: #### CMP #### [facility] [address] [place], [place] [address] Creatinine [Mass/Vol] 0.95 0.58-0.96 mg/dL Normal 05-25-20 [facility] (00 000) Comment: Performed By: #### CMP #### [facility] [address] [place], [place] [address] Glucose [Mass/Vol] 95 74-99 mg/dL Normal 05-25-2020 [facility] ([address]) Comment: Result Comment: The [place] [employer] (ADA) provides guidance for cutoff values for fastin g glucose and random glucose. The ADA defines fasting as n o caloric intake for at least 8 hours.Fasting plasma glucose results between 100 to 125 mg/dL indicate increased risk for diabetes (prediabetes). Fasting plasma glucose resul ts greater than or equal to 126 mg/dL meet the criteria for diagnosis of diabetes. In the absence of unequivocal hyper glycemia, results should be confirmed by repeat testing. In a patient with classic symptoms of hyperglycemia or hyperglycemic crisis, random plasma glucose results great er than or equal to 200 mg/dL meet the criteria for diagno sis of diabetes. Reference: Standards of Medical Care in Diabetes 2016; [place] [employer]. Diabetes Care. 2016;39(Suppl 1). Performed By: #### CMP #### [facility] [address] [place], [place] [address] Potassium [Moles/Vol] 3.6 3.7-5.1 mmol/L Low 05-25-20 [facility] ([id number]) Comment: Performed By: #### CMP #### [facility] [address] [place], [place] [address] Protein [Mass/Vol] 8.0 6.3-8.0 g/dL Normal 05-25-2020 [facility] (02963) Comment: Performed By: #### CMP #### [facility] [address] [place], [place] [address] Sodium [Moles/Vol] 139 136-144 mmol/L Normal 05-25-2020 [facility] (73674) Comment: Performed By: #### CMP #### [facility] [address] [place], [place] [address] Urea nitrogen [Mass/Vol] 11 7-21 mg/dL Normal 05-25 [facility] (64256) Comment: Performed By: #### CMP #### [facility] [address] [place], [place] [address] cnpn on 2020-05-25 CNPN Telephone (GSTNOR) Normal 05-25-2020 [facility] SALLY MCGREGOR ([id number]) 1980 [facility] Time Provider Department ([id number]) 05/25/20 JOHNNY WINN GSTNOR During your visit today, we recorded the following informati on about you: Pierce Barber Ma 05/25/2020 4:24 PM Signed Tried to return patient call, voicemail full. Pierce Barber MA Allergies As of Date: 05/25/2020 Noted Allergy Reaction PENICILLINS 12/07/2009 2 - Rash CEPHALEXIN 10/20/2019 9 - Itching CHLORHEXIDINE 10/29/2016 2 - Rash Comments: Skin rash ASA (SALICYLATES) 01/27/2011 14 - Other: See Comments Comments: ulcers CONTRAST DYE (IODINE) 05/17/2008 12 - Shortness of Breath IBUPROFEN 06/18/2016 8 - GI Upset PREDNISONE 06/18/2016 14 - Other: See Comments Comments: makes agitated and mean Date Reviewed: 05/25/2020 Reviewed by: Aundrea PickardRn) VIN Ruiz - Fully Assessed Reason for Visit: Returning Patient's Call [[id number]] Prescriptions as of 05/25/2020 Sig: HYOSCYAMINE SULFATE 0.125 MG * Take 1 tablet by mouth every * SUCRALFATE 1 GRAM TABLET Take 1 tablet by mouth four t* PROMETHAZINE 25 MG TABLET Take 1 tablet by mouth every * PANTOPRAZOLE 40 MG TABLET,DEL* Take 1 tablet by mouth daily * DIPHENHYDRAMINE 25 MG CAPSULE Take 50 mg by mouth every 6 h* ESTRADIOL 2 MG TABLET Take 2 mg by mouth once daily. ALIGN 4 MG CAPSULE Take 1 capsule by mouth once * SERTRALINE 100 MG TABLET Take 1 tablet by mouth once d* QUETIAPINE 100 MG TABLET Take 1 tablet by mouth once d* ALBUTEROL SULFATE HFA 90 MCG/* Inhale 2 Puffs as instructed * Problem List As Of Date 05/25/2020 Noted Resolved Routine gynecological examination [Z01.419] 05/17/2008 Class: Chronic More... More... Family history of diabetes mellitus [Z83.3] 05/17/2008 More... Calculus of kidney [N20.0] 05/17/2008 More... Allergic rhinitis, cause unspecified [J30.9] 05/17/2008 More... Migraine without aura [G43.009] 05/17/2008 More... Smoker [F17.200] 05/17/2008 More... Impaired fasting glucose [R73.01] 05/17/2008 More... Benign liver cyst [K76.89] 05/24/2010 Class: Chronic More... Ovarian cyst [N83.209] 07/15/2012 Generalized anxiety disorder [F41.1] 03/31/2016 Reactive depression [F32.9] 03/31/2016 More... Adjustment insomnia [F51.02] 03/31/2016 Encounter for screening for cardiovascular diso*03/31/2016 Bilateral low back pain without sciatica [M54.5]06/18/2016 More... Pain in left hip [M25.552] 06/18/2016 Greater trochanteric bursitis [M70.60] 06/18/2016 Hydronephrosis of left kidney [N13.30] 02/05/2017 Hydroureter on left [N13.4] 02/05/2017 Right facial numbness [R20.0] 02/23/2017 Right upper extremity numbness [R20.0] 02/23/2017 Numbness of right lower extremity [R20.0] 02/23/2017 Weakness of right upper extremity [R29.898] 02/23/2017 Weakness of right lower extremity [R29.898] 02/23/2017 Vision blurred [H53.8] 02/23/2017 Lumbar spine pain [M54.5] 02/23/2017 Cervical spine pain [M54.2] 02/23/2017 Abnormal MRI, lumbar spine [R93.7] 02/23/2017 Hydroureter, left [N13.4] 03/30/2017 Lung nodules [R91.8] 01/22/2020 More... Encounter Status:Closed by PIERCE BARBER MA on 05/25/20 progress on 2020-05 PROGRESS HNO ID: [id number] Normal 05-24-2020 [facility] Author: Johnny Winn [place] ([id number]) Service: ? Author Type: Physician Type: Progress Notes Filed: 05/24/2020 3:43 PM Note Text: virtual VISIT FOLLOW UP. Changed to telephone due to poor co nnection. I had a virtual with Ms. Mcgregor today for follow up of abdo bhavin pain, diarrhea, nausea, vomiting. This is a virtual visit. It required patient-provider intera ction for the medical decision making as documented below. A virtual telemedicine Visit was substituted [facility] a [facility] -required in-person visit because of the recent COVID 19 pandemic whic h has caused disruption in normal operations spanning access to care, med ical treatment, medications etc. This phone or virtual visit was conducted to prevent exposure of the patient to the virus and to optimize the patient's safety. and comes with inherent limitations of a phone encou nter. A verbal permission was taken from the patient about continuing with the virtual visit and ordering of necessary work up. UPDATED HISTORY: I had a phone consult With Ms Mcgregor yesterday for right si ded/upper abdominal pain, diarrhea, nausea, vomiting. I advised her to go to the ED. Patient went to [place] ED and mentions 'nothing was done. T hey gave me IV fluids, did some blood work and told me my pancreas levels a re normal and sent me home'. She continues to relate severe cramping abdominal pain assoc iated with nausea, diarrhea, vomiting. No fever/chills. History of present Illness Last seen in GI clinic 04/26/2020 Reports nausea, vomiting and significant bloating. Abdominal cramps + Gets worse after a BM. She is getting 3 BMs/day. Has noted occasional blood in stool of long duration - attri butes to hemorrhoids. Passage of foul smelling gas. Excessive burping. Heartburn + Takes Protonix 40mg po daily at 9am that was helping with GE RD but since few week after her above mentioned symptoms started protonix not helping much. Also mentions difficulty in swallowing. Had choking episodes. Of note she presented to the ED in [place] in January 2020 for a bdominal pain of [address] abdomen was essentially unremarkable i ncluding pancreas. Was found to have lipase of 193 on 02/15/2020. Amylase normal. Hepatic function panel. ? Has h/o cholecystectomy in 1998. PAST MEDICAL HISTORY Diagnosis Date - Allergic rhinitis, cause unspecified 05/17/2008 Spring and summer - Benign liver cyst 05/24/2010 CT scan at [facility] 11/2009 and 04/2010 showe 4 mm increase in size . No pain. No elevated LFTs on 03/11/2010. - Calculus of kidney 05/17/[address] Nicolas: Hospitalized age 20, and again later -- no procedures so far ([facility], most, 1995 [facility]) - Cancer (HCC) - Diverticulosis - Dysmenorrhea - Hemorrhoids - History of blood transfusion - Impaired fasting glucose 05/17/2008 Sugar 104 fasting, 04/21 - MIGRAINE 05/17/2008 Has used imitrex with good response; Keeps Vicodin on hand w hen needed; - Ovarian cyst 07/15/2012 - Pancreatitis - Smoker 05/17/2008 Started age 26, 1/2 a PPD PAST SURGICAL HISTORY Procedure Laterality Date - CHOLECYSTECTOMY HX - COLONOSCOPY 05/08/2020 poor prep, stool in entire colon, int hemorrhoids, diverticu losis - DANDC, DIAG AND/OR THERAPEUTIC - EGD 05/08/2020 gastritis, duodenitis, mild esophagitis, 2 cm hiatal hernia - LIGATE FALLOPIAN TUBE - PAST SURGICAL HISTORY OF uterine ablation - PAST SURGICAL HISTORY OF cyst removal - REMOVAL OF OVARY(S) 2009 Oophorectomy right, still has left - REMOVAL OF OVARY(S) 01/2015 left removed - TOTAL ABDOM HYSTERECTOMY 08/31/06 Hysterectomy, [facility] FAMILY HISTORY Problem Relation Age of Onset - Diabetes Maternal Grandmother - Diabetes Maternal Grandfather - Lipids Maternal Grandfather - Stroke Maternal Grandfather - Coronary Artery Disease Maternal Grandfather - Cataract Maternal Grandfather - Pancreatic Cancer Maternal Grandfather - Diabetes Paternal Grandmother - Diabetes Paternal Grandfather - Coronary Artery Disease Paternal Grandfather - Thyroid Mother unsure of details - Arthritis Mother fibromyalgia - Blood Disease Mother blood clots, unsure of details (aorta?) - Breast Cancer Maternal Aunt - Lipids Maternal Uncle - Coronary Artery Disease Maternal Uncle - other (ovarian ca) Other maternal cousin Social History Tobacco Use - Smoking status: Former Smoker Packs/day: 0.50 Years: 3.00 Pack years: 1.50 Types: Cigarettes Quit date: 01/12/2017 Years since quittin.3 - Smokeless tobacco: Never Used - Tobacco comment: Approx. 3 cigarettes daily-1 pack every w [place] Substance Use Topics - Alcohol use: Yes Comment: Occasional - Drug use: Never Current Outpatient Medications Medication Sig Dispense Refill - pantoprazole DR (PROTONIX) 40 mg tablet Take 1 tablet by m outh daily before breakfast. Take on empty stomach, 1/2 hr before meal. 30 tablet 3 - diphenhydrAMINE (BENADRYL) 25 mg capsule Take 50 mg by nick th every 6 hours as needed. - estradiol (ESTRACE) 2 mg tablet Take 2 mg by mouth once da federico. - dicyclomine (BENTYL) 10 mg capsule Take 1 capsule by mouth before meals and at bedtime. Use as directed 90 capsule 1 - Bifidobacterium Infantis (ALIGN) 4 mg cap Take 1 capsule b y mouth once daily. 30 capsule 2 - sertraline (ZOLOFT) 100 mg tablet Take 1 tablet by mouth o nce daily. - QUEtiapine (SEROQUEL) 100 mg tablet Take 1 tablet by mouth once daily. - albuterol HFA (VENTOLIN HFA) 90 mcg/actuation inhaler Inha le 2 Puffs as instructed every 4 hours as needed. No current facility-administered medications for this visit. ALLERGIES Allergen Reactions - Penicillins Rash - Cephalexin Itching - Chlorhexidine Rash Skin rash - Asa [Salicylates] Other: See Comments ulcers - Contrast Dye [Iodin* Shortness of Breath - Ibuprofen GI Upset - Prednisone Other: See Comments makes agitated and mean REVIEW OF SYSTEMS: 12 point system reviewed and negative other than HPI/interva l history/review of systems. PHYSICAL FINDINGS OF NOTE: Deferred physical exam as visit was completed over the phone /MyChart. REVIEWED ITEMS 1. EGD 05/08/2020 Z-line regular, 34 cm from the incisors. ?- Esophagogastric landmarks identif ied. ?- 2 cm hiatal hernia. ?- Gastritis. Biopsied. ?- Duodenitis. Biopsied. 2. Colonoscopy Preparation of the colon was poor. ?- Diverticulosis in the sigmoid col on and in the ?descending colon. Biopsied. ?- Non-bleeding internal hemorrhoids . ?- Stool in the entire examined colo n 3. Liver cysts including a complex cyst, enlarged compared t o prior study. IMPRESSION 1. Ms Mcgregor with h/o gastroduodenitis on EGD, sigmoid dive rticulosis on colonoscopy but otherwise poor prep, an episode of pancreati tis being evaluated for abdominal pain, diarrhea, nauesa, vomiting. Wa s advised to go to the ED yesterday - she went to [place] ED and was told that pancreas levels were normal - sent home with Zofran. Continues to hav e significant severe symptoms. R/o IBS flare up vs other. US has shown com plex large liver cyst but present for several years and unlikely to be causing any symptoms although patient was sent to r/o any complication f rom it. RECOMMENDATION: Will give trial of Levsin and Carafate. Advised to stop Bentyl Advised to continue Protonix. Promethazine 25mg Q8h PRN for nausea. Advised to go to the [facility] ED if no improvement in s ymptoms. During this patient visit I have spent approximately 15 luna los in counseling regarding interpretation, education and coordinat ion of care. Johnny Winn MD 3:22 PM progress on 2020-05 PROGRESS HNO ID: [id number] Normal 05-23-2020 [facility] Author: Johnny Winn [place] ([id number]) Service: Gastroenterology Author Type: Physician Type: Progress Notes Filed: 05/24/2020 8:09 AM Note Text: Returned patient?s call. She reported worsening RUQ pain ass ociated with nausea vomiting diarrhea and bloating. Denied any fever/chil ls, cough. Advised her to go to the ED to r/o pancreatitis, complicatio n in the large liver cysts. She voiced understanding. Johnny [facility] MD [facility] 2020-[facility]-18 CNPN Telephone (FAMPWS) Normal 05-18-2020 [facility] SALLY MCGREGOR ([id number]) 1980 [facility] Date Time Provider Department ([id number]) 05/18/20 [facility] During your visit today, we recorded the following informati on about you: Yvette Huffman RN 05/18/2020 8:21 AM Signed Pt called, verified by name and birthdate. Pt states she has chronic rt shoulder pain that has been acute for apx 1 week. Pt was at urgent care yesterday for this. Pt would like ortho referral . Order pended. Pt also wants to know what she can take for the pain. Pt state s she has been taking tylenol with no relief and states sh e can not take motrin per GI physician. Pt wants to know what will help with pain. Please advise Yvette Mejia MD 05/18/2020 8:49 AM Signed Advise patient at this point she's going to have to continue with the tylenol either extra strength 500 mg two every 6 hrs or tyleno l arthritis 650 mg two every 8 hrs. She should also be icing the should er 2-3 times a day for 20 min Branden Sanders Ma 05/18/2020 9:06 AM Signed Tried calling patient no answer and vm full Branden Huffman RN 05/18/2020 9:12 AM Signed Pt called, verified by name and birthdate. Patient notified of provider's instructions. Patient verbalizes understanding. Pt transferr ed to [facility] to schedule ortho apt Yvette Huffman RN Allergies As of Date: 05/18/2020 Noted Allergy Reaction PENICILLINS 12/07/2009 2 - Rash CEPHALEXIN 10/20/2019 9 - Itching CHLORHEXIDINE 10/29/2016 2 - Rash Comments: Skin rash ASA (SALICYLATES) 01/27/2011 14 - Other: See Comments Comments: ulcers CONTRAST DYE (IODINE) 05/17/2008 12 - Shortness of Breath IBUPROFEN 06/18/2016 8 - GI Upset PREDNISONE 06/18/2016 14 - Other: See Comments Comments: makes agitated and mean Date Reviewed: 05/17/2020 Reviewed by: Kenia Mary) Bartolo - Fully Assessed Reason for Visit: Referral Request [124] Primary Visit Diagnosis:Acute shoulder pain, uns pecified laterality [M25.519] Order(s):CONSULT TO ORTHOPAEDICS [9055] Order #: [id number] ty: 1 FUTURE Prescriptions as of 05/18/2020 Sig: PANTOPRAZOLE 40 MG TABLET,DEL* Take 1 tablet by mouth daily * DIPHENHYDRAMINE 25 MG CAPSULE Take 50 mg by mouth every 6 h* ESTRADIOL 2 MG TABLET Take 2 mg by mouth once daily. DICYCLOMINE 10 MG CAPSULE Take 1 capsule by mouth befor* ALIGN 4 MG CAPSULE Take 1 capsule by mouth once * SERTRALINE 100 MG TABLET Take 1 tablet by mouth once d* QUETIAPINE 100 MG TABLET Take 1 tablet by mouth once d* ALBUTEROL SULFATE HFA 90 MCG/* Inhale 2 Puffs as instructed * Problem List As Of Date 05/18/2020 Noted Resolved Routine gynecological examination [Z01.419] 05/17/2008 Class: Chronic More... More... Family history of diabetes mellitus [Z83.3] 05/17/2008 More... Calculus of kidney [N20.0] 05/17/2008 More... Allergic rhinitis, cause unspecified [J30.9] 05/17/2008 More... Migraine without aura [G43.009] 05/17/2008 More... Smoker [F17.200] 05/17/2008 More... Impaired fasting glucose [R73.01] 05/17/2008 More... Benign liver cyst [K76.89] 05/24/2010 Class: Chronic More... Ovarian cyst [N83.209] 07/15/2012 Generalized anxiety disorder [F41.1] 03/31/2016 Reactive depression [F32.9] 03/31/2016 More... Adjustment insomnia [F51.02] 03/31/2016 Encounter for screening for cardiovascular diso*03/31/2016 Bilateral low back pain without sciatica [M54.5]06/18/2016 More... Pain in left hip [M25.552] 06/18/2016 Greater trochanteric bursitis [M70.60] 06/18/2016 Hydronephrosis of left kidney [N13.30] 02/05/2017 Hydroureter on left [N13.4] 02/05/2017 Right facial numbness [R20.0] 02/23/2017 Right upper extremity numbness [R20.0] 02/23/2017 Numbness of right lower extremity [R20.0] 02/23/2017 Weakness of right upper extremity [R29.898] 02/23/2017 Weakness of right lower extremity [R29.898] 02/23/2017 Vision blurred [H53.8] 02/23/2017 Lumbar spine pain [M54.5] 02/23/2017 Cervical spine pain [M54.2] 02/23/2017 Abnormal MRI, lumbar spine [R93.7] 02/23/2017 Hydroureter, left [N13.4] 03/30/2017 Lung nodules [R91.8] 01/22/2020 More... Encounter Status:Closed by YVETTE HUFFMAN RN on 05/18/20 xr shldr >/=3v ap/zenobia ap/othr rt on 2020-05-17 XR SHLDR >/=3V * * *Final Report* * * Normal [facility] AP/ZENOBIA AP/OTHR DATE OF EXAM: May 17 2020 12:16PM [facility] ([id number]) RT WOX [id number] - XR SHLDR >/=3V AP/ZENOBIA AP/OTHR RT / [id number] PROCEDURE REASON: Acute pain of right shoulder * * * * Physician Interpretation * * * * EXAM TITLE: XR SHLDR >/=3V AP/ZENOBIA AP/OTHR RT EXAM DATE/TIME: 05/17/2020 12:16 PM COMPARISON: Shoulder x-ray on 04/22/2019 CLINICAL INDICATION/HISTORY: Fall. TECHNIQUE: AP, true AP and Y views of the right shoulder are presented. FINDINGS: No acute fractures or subluxations are noted. The joint spaces are well preserved. The mineralization of the bones is normal. There is no significant soft tissue swelling. IMPRESSION: No acute radiographic abnormalities identified i n the right shoulder. Parts Department Manager: HERMINIO Transcribe Date/Time: May 17 2020 12:18P Dictated by : KORI BLANKENSHIP MD This examination was interpreted and the report reviewed and electronically signed by: KORI BLANKENSHIP MD on May 17 2020 12:20PM EST [id number] progress on 2020-05 PROGRESS HNO ID: [id number] Normal 05-17-2020 [facility] Author: Kylee PickardRtVianey Lea Mata ([id number]) Service: ? Author Type: Radiographic Technologist Type: Progress Notes Filed: 05/17/2020 12:17 PM Note Text: Radiology Service Progress Note PATIENT NAME: Sally Mcgregor DATE OF SERVICE: May 17, 2020 TIME: 12:08 PM PATIENT IDENTITY VERIFICATION COMPLETED USING TWO (2) IDENTI FIERS: Name and Date of confirmed by patient verbally. FALL SCREENING: Has the patient had 2 falls in the last year or 1 fall with injury or currently using an Ambulatory Assistive Devic e (Walker, Cane, Wheelchair, Crutches, etc.)? No PATIENT GENDER DATA: Female. status: : No status: NO. PATIENT RELEVANT IMPLANT DATA REVIEWED: Yes RADIOLOGY DEPARTMENT: General X-ray: Exam(s) Completed: Uppe r Extremity X-Ray(s): Shoulder, AP / TRUE AP / AXILLARY right : PERIPHERAL IV DATA: Not applicable SIGNED BY: Kylee Davenport RT May 17, 2020 12:08 PM PROGRESS HNO ID: [id number] Normal 05-17-2020 [facility] Author: Kenia Mary) Bartolo Mata ([id number]) Service: ? Author Type: Nurse Practitioner Type: Progress Notes Filed: 05/17/2020 12:45 PM Note Text: Visit Date: May 17, 2020 Patient Name: Ms.Nichole Jeana Mcgregor Date of : 1980 MRN/E #: [id number] Chief Complaint Patient presents with: right shoulder pain: fell in shoulder yesterday History of present illness Sally Mcgregor is a 39 year old female. Reports she fell in the shower yesterday and landed on her r ight shoulder. Has tried acetaminophen and ice for pain with little relief. She states she cannot take NSAIDs due to her reflux and heat makes the pain worse. She reports having a hx of shoulder issues. The history is provided by the patient. No language interpre ter was used. PAIN EVALUATION 05/17/2020 1153 Pain Level: 10 Pain Location: Shoulder-Right Description: Burning;Sharp Duration Amount of Time: 1 Duration Units: Days Frequency: Continuous Intervention: Medication ALLERGIES Allergen Reactions - Penicillins Rash - Cephalexin Itching - Chlorhexidine Rash Skin rash - Asa [Salicylates] Other: See Comments ulcers - Contrast Dye [Iodin* Shortness of Breath - Ibuprofen GI Upset - Prednisone Other: See Comments makes agitated and mean PAST MEDICAL HISTORY Diagnosis Date - Allergic rhinitis, cause unspecified 05/17/2008 Spring and summer - Benign liver cyst 05/24/2010 CT scan at [facility] 11/2009 and 04/2010 showe 4 mm increase in size . No pain. No elevated LFTs on 03/11/2010. - Calculus of kidney 05/17/[address] Nicolas: Hospitalized age 20, and again later -- no procedures so far ([facility], most, 1995 [facility]) - Dysmenorrhea - History of blood transfusion - Impaired fasting glucose 05/17/2008 Sugar 104 fasting, 04/21 - MIGRAINE 05/17/2008 Has used imitrex with good response; Keeps Vicodin on hand w hen needed; - Ovarian cyst 07/15/2012 - Pancreatitis - Smoker 05/17/2008 Started age 26, 1/2 a PPD PAST SURGICAL HISTORY Procedure Laterality Date - CHOLECYSTECTOMY HX - COLONOSCOPY 05/08/2020 poor prep, stool in entire colon, int hemorrhoids, diverticu losis - DANDC, DIAG AND/OR THERAPEUTIC - EGD 05/08/2020 gastritis, duodenitis, mild esophagitis, 2 cm hiatal hernia - LIGATE FALLOPIAN TUBE - PAST SURGICAL HISTORY OF uterine ablation - PAST SURGICAL HISTORY OF cyst removal - REMOVAL OF OVARY(S) 2009 Oophorectomy right, still has left - REMOVAL OF OVARY(S) 01/2015 left removed - TOTAL ABDOM HYSTERECTOMY 08/31/06 Hysterectomy, [facility] Social History Tobacco Use - Smoking status: Former Smoker Packs/day: 0.50 Years: 3.00 Pack years: 1.50 Types: Cigarettes Quit date: 01/12/2017 Years since quittin.3 - Smokeless tobacco: Never Used - Tobacco comment: Approx. 3 cigarettes daily-1 pack every w [place] Substance Use Topics - Alcohol use: Yes Comment: Occasional - Drug use: Never FAMILY HISTORY Problem Relation Age of Onset - Diabetes Maternal Grandmother - Diabetes Maternal Grandfather - Lipids Maternal Grandfather - Stroke Maternal Grandfather - Coronary Artery Disease Maternal Grandfather - Cataract Maternal Grandfather - Pancreatic Cancer Maternal Grandfather - Diabetes Paternal Grandmother - Diabetes Paternal Grandfather - Coronary Artery Disease Paternal Grandfather - Thyroid Mother unsure of details - Arthritis Mother fibromyalgia - Blood Disease Mother blood clots, unsure of details (aorta?) - Breast Cancer Maternal Aunt - Lipids Maternal Uncle - Coronary Artery Disease Maternal Uncle - other (ovarian ca) Other maternal cousin Review of Systems Constitutional: Negative for chills and fever. Musculoskeletal: Positive for falls and joint pain (right sh oulder). Negative for neck pain. Skin: Negative for rash. Neurological: Negative for dizziness, tingling, weakness and headaches. Physical Exam Constitutional: She is well-developed, well-nourished, and i n no distress. Pulmonary/Chest: Effort normal. Musculoskeletal: Right shoulder: She exhibits decreased range of motion, tend erness, bony tenderness, pain and decreased strength. She exhibits n o swelling and no spasm. Left shoulder: Normal. Skin: Skin is warm and dry. Vitals reviewed. BP 124/82 Pulse 86 Temp (Src) 97.8 (Tympanic) Resp 16 Wt 198 lb 3.2 oz (89.9kg) LMP 08/10/2006 A/P (M25.511) Acute pain of right shoulder (primary encounter di yuniorosis) - XR SHOULDER GENERAL 3V OR MORE AP/TRUE AP/OTHER RT FINDINGS: KORI BLANKENSHIP MD No acute fractures or subluxations are noted. The joint spaces are well preserved. The mineralization of the bones is normal. There is no significant soft tissue swelling. IMPRESSION: No acute radiographic abnormalities identified i n the right Shoulder. -given stretches/exercises -Rest, Ice, Compression, Elevation discussed -discussed use of acetaminophen -follow up with primary care if symptoms persist/worsen in 1 0-14 days Kenia Mcfarland APRN.CNP Discussed above plan with patient. Pt agreeable with above skyler ga on 2020-05-17 CNOV Office Visit (UCWSTR) Normal 05-17-[address] [place] [address] [facility] SALLY MCGREGOR ([id number]) 1980 [facility] Time Provider Department ([id number]) 05/17/20 11:45 AM KENIA MCFARLAND (JAKI) [facility] During your visit today, we recorded the following informati on about you: Temperature Pulse Respiration Blood pressure 97.8 degrees 86/minute 16/minute 124/82 Weight 89.9 kg Kenia Mcfarland APRN.CNP 05/17/2020 12:45 PM Signed Visit Date: May 17, 2020 Patient Name: Ms.Nichole Jeana Mcgregor Date of : 1980 MRN/E #: [id number] Chief Complaint Patient presents with: right shoulder pain: fell in shoulder yesterday History of present illness Sally Mcgregor is a 39 year old female. Reports she fell in the shower yesterday and landed on her right shoulder. Has tried acetaminophen and ice for pain wit h little relief. She states she cannot take NSAIDs due to her reflu x and heat makes the pain worse. She reports having a hx of shoulder issues. The history is provided by the patient. No language interpre ter was used. PAIN EVALUATION 05/17/2020 1153 Pain Level: 10 Pain Location: Shoulder-Right Description: Burning;Sharp Duration Amount of Time: 1 Duration Units: Days Frequency: Continuous Intervention: Medication ALLERGIES Allergen Reactions - Penicillins Rash - Cephalexin Itching - Chlorhexidine Rash Skin rash - [place]a [Salicylates] Other: See Comments ulcers - Contrast Dye [Iodin* Shortness of Breath - Ibuprofen GI Upset - Prednisone Other: See Comments makes agitated and mean PAST MEDICAL HISTORY Diagnosis Date - Allergic rhinitis, cause unspecified 05/17/2008spring and summer - Benign liver cyst 05/24/2010 CT scan at [facility] 11/2009 and 04/2010 showe 4 mm increase in size . No pain. No elevated LFTs on 03/11/2010. - Calculus of kidney 05/17/[address] Nicolas: Hospitalized age 20, a nd again later -- no procedures so far ([facility], most, 1995 [facility]) - Dysmenorrhea - History of blood transfusion - Impaired fasting glucose 05/17/2008 Sugar 104 fasting, 04/21 - MIGRAINE 05/17/2008 Has used imitrex with good response; Keeps Vicodin on hand w hen needed; - Ovarian cyst 07/15/2012 - Pancreatitis - Smoker 05/17/2008 Started age 26, 1/2 a PPD PAST SURGICAL HISTORY Procedure Laterality Date - CHOLECYSTECTOMY HX - COLONOSCOPY 05/08/2020 poor prep, stool in entire colon, int hemorrhoids, diverticu losis - DANDC, DIAG AND/OR THERAPEUTIC - EGD 05/08/2020 gastritis, duodenitis, mild esophagitis, 2 cm hiatal hernia - LIGATE FALLOPIAN TUBE - PAST SURGICAL HISTORY OF uterine ablation - PAST SURGICAL HISTORY OF cyst removal - REMOVAL OF OVARY(S) 2009 Oophorectomy right, still has left - REMOVAL OF OVARY(S) 01/2015 left removed - TOTAL ABDOM HYSTERECTOMY 08/31/06 Hysterectomy, [facility] Social History Tobacco Use - Smoking status: Former Smoker Packs/day: 0.50 Years: 3.00 Pack years: 1.50 Types: Cigarettes Quit date: 01/12/2017 Years since quittin.3 - Smokeless tobacco: Never Used - Tobacco comment: Approx. 3 cigarettes daily-1 pack every w [place] Substance Use Topics - Alcohol use: Yes Comment: Occasional - Drug use: Never FAMILY HISTORY Problem Relation Age of Onset - Diabetes Maternal Grandmother - Diabetes Maternal Grandfather - Lipids Maternal Grandfather - Stroke Maternal Grandfather - Coronary Artery Disease Maternal Grandfather - Cataract Maternal Grandfather - Pancreatic Cancer Maternal Grandfather - Diabetes Paternal Grandmother - Diabetes Paternal Grandfather - Coronary Artery Disease Paternal Grandfather - Thyroid Mother unsure of details - Arthritis Mother fibromyalgia - Blood Disease Mother blood clots, unsure of details (aorta?) - Breast Cancer Maternal Aunt - Lipids Maternal Uncle - Coronary Artery Disease Maternal Uncle - other (ovarian ca) Other maternal cousin Review of Systems Constitutional: Negative for chills and fever. Musculoskeletal: Positive for falls and joint pa in (right shoulder). Negative for neck pain. Skin: Negative for rash. Neurological: Negative for dizziness, tingling, weakness and headaches. Physical Exam Constitutional: She is well-developed, well-nourished, and i n no distress. Pulmonary/Chest: Effort normal. Musculoskeletal: Right shoulder: She exhibits decreased range of motion, tend erness, bony tenderness, pain and decreas ed strength. She exhibits no swelling and no spasm. Left shoulder: Normal. Skin: Skin is warm and dry. Vitals reviewed. BP 124/82 Pulse 86 Temp (Src) 97.8 ( Tympanic) Resp 16 Wt 198 lb 3.2 oz (89.9kg) LMP 08/10/2006 A/P (M25.511) Acute pain of right shoulder (primary encounter di agnosis) - XR SHOULDER GENERAL 3V OR MORE AP/TRUE AP/OTHER RT FINDINGS: KORI BLANKENSHIP MD No acute fractures or subluxations are noted. The joint spaces are well preserved. The mineralization of the bones is normal. There is no significant soft tissue swelling. IMPRESSION: No acute radiographic abnormalities identified i n the right Shoulder. -given stretches/exercises -Rest, Ice, Compression, Elevation discussed -discussed use of acetaminophen -follow up with primary care if symptoms persist/worsen in 1 0-14 days Kenia Mcfarland APRN.JAKI Discussed above plan with patient. Pt agreeable with above p maria esther. Kenia Mcfarland APRN.CNP 05/17/2020 12:35 PM Signed A/P (M25.511) Acute pain of right shoulder (primary encounter di agnosis) - XR SHOULDER GENERAL 3V OR MORE AP/TRUE AP/OTHER RT FINDINGS: KORI BLANKENSHIP MD No acute fractures or subluxations are noted. The joint spaces are well preserved. The mineralization of the bones is normal. There is no significant soft tissue swelling. IMPRESSION: No acute radiographic abnormalities identified i n the right Shoulder. -given stretches/exercises -Rest, Ice, Compression, Elevation discussed -discussed use of acetaminophen -follow up with primary care if symptoms persist/worsen in 1 0-14 days Referring Provider: SELF [200] Allergies As of Date: 05/17/2020 Noted Allergy Reaction PENICILLINS 12/07/2009 2 - Rash CEPHALEXIN 10/20/2019 9 - Itching CHLORHEXIDINE 10/29/2016 2 - Rash Comments: Skin rash ASA (SALICYLATES) 01/27/2011 14 - Other: See Comments Comments: ulcers CONTRAST DYE (IODINE) 05/17/2008 12 - Shortness of Breath IBUPROFEN 06/18/2016 8 - GI Upset PREDNISONE 06/18/2016 14 - Other: See Comments Comments: makes agitated and mean Date Reviewed: 05/17/2020 Reviewed by: Kenia PickardSales Representative [employer]ing [employer]) Workman - Fully Assessed Reason for Visit: right shoulder pain [Other] Cmt: fell in shoulder yesterday Primary Visit Diagnosis:Acute pain of right shoulder [M25.51 1] Order(s):XR SHOULDER GENERAL 3V OR MORE AP/TRUE AP/OTHER RT [1108635] Order #: [id number]. #:[id number] Prescriptions as of 05/17/2020 Sig: PANTOPRAZOLE 40 MG TABLET,DEL* Take 1 tablet by mouth daily * DIPHENHYDRAMINE 25 MG CAPSULE Take 50 mg by mouth every 6 h* ESTRADIOL 2 MG TABLET Take 2 mg by mouth once daily. DICYCLOMINE 10 MG CAPSULE Take 1 capsule by mouth befor* ALIGN 4 MG CAPSULE Take 1 capsule by mouth once * SERTRALINE 100 MG TABLET Take 1 tablet by mouth once d* QUETIAPINE 100 MG TABLET Take 1 tablet by mouth once d* ALBUTEROL SULFATE HFA 90 MCG/* Inhale 2 Puffs as instructed * Problem List As Of Date 05/17/2020 Noted Resolved Routine gynecological examination [Z01.419] 05/17/2008 Class: Chronic More... More... Family history of diabetes mellitus [Z83.3] 05/17/2008 More... Calculus of kidney [N20.0] 05/17/2008 More... Allergic rhinitis, cause unspecified [J30.9] 05/17/2008 More... Migraine without aura [G43.009] 05/17/2008 More... Smoker [F17.200] 05/17/2008 More... Impaired fasting glucose [R73.01] 05/17/2008 More... Benign liver cyst [K76.89] 05/24/2010 Class: Chronic More... Ovarian cyst [N83.209] 07/15/2012 Generalized anxiety disorder [F41.1] 03/31/2016 Reactive depression [F32.9] 03/31/2016 More... Adjustment insomnia [F51.02] 03/31/2016 Encounter for screening for cardiovascular diso*03/31/2016 Bilateral low back pain without sciatica [M54.5]06/18/2016 More... Pain in left hip [M25.552] 06/18/2016 Greater trochanteric bursitis [M70.60] 06/18/2016 Hydronephrosis of left kidney [N13.30] 02/05/2017 Hydroureter on left [N13.4] 02/05/2017 Right facial numbness [R20.0] 02/23/2017 Right upper extremity numbness [R20.0] 02/23/2017 Numbness of right lower extremity [R20.0] 02/23/2017 Weakness of right upper extremity [R29.898] 02/23/2017 Weakness of right lower extremity [R29.898] 02/23/2017 Vision blurred [H53.8] 02/23/2017 Lumbar spine pain [M54.5] 02/23/2017 Cervical spine pain [M54.2] 02/23/2017 Abnormal MRI, lumbar spine [R93.7] 02/23/2017 Hydroureter, left [N13.4] 03/30/2017 Lung nodules [R91.8] 01/22/2020 More... Other instructions from your clinician: A/P (M25.511) Acute pain of right shoulder (primary encounter di agnosis) - XR SHOULDER GENERAL 3V OR MORE AP/TRUE AP/OTHER RT FINDINGS: KORI BLANKENSHIP MD No acute fractures or subluxations are noted. The joint spaces are well preserved. The mineralization of the bones is normal. There is no significant soft tissue swelling. IMPRESSION: No acute radiographic abnormalities identified i n the right Shoulder. -given stretches/exercises -Rest, Ice, Compression, Elevation discussed -discussed use of acetaminophen -follow up with primary care if symptoms persist/worsen in 1 0-14 days Encounter Status:Closed by KENIA MCFARLAND on 05/17/20 No panel information on 2020-05-17 [facility] ([id number]) cnpn on 2020-05-11 CNPN Telephone (GSTNOR) Normal 05-11-2020 [place] [facility] SALLY MCGREGOR ([id number]) 1980 F [place] Date Time Provider Department ([id number]) 05/11/20 JOHNNY WINN GSTNOR During your visit today, we recorded the following informati on about you: Eleanor Anderson Pss 05/11/2020 3:44 PM Signed She is scheduled for egd/eus for You had aslo mentioned seeing a surgeon for liver cysts I need the consult in epic Thank you Shahla Allergies As of Date: 05/11/2020 Noted Allergy Reaction PENICILLINS 12/07/2009 2 - Rash CEPHALEXIN 10/20/2019 9 - Itching CHLORHEXIDINE 10/29/2016 2 - Rash Comments: Skin rash ASA (SALICYLATES) 01/27/2011 14 - Other: See Comments Comments: ulcers CONTRAST DYE (IODINE) 05/17/2008 12 - Shortness of Breath IBUPROFEN 06/18/2016 8 - GI Upset PREDNISONE 06/18/2016 14 - Other: See Comments Comments: makes agitated and mean Date Reviewed: 05/08/2020 Reviewed by: Penny Benedict RN - Fully Assessed Reason for Visit: surgical referral [Other] Prescriptions as of 05/11/2020 Sig: PANTOPRAZOLE 40 MG TABLET,DEL* Take 1 tablet by mouth daily * DIPHENHYDRAMINE 25 MG CAPSULE Take 50 mg by mouth every 6 h* ESTRADIOL 2 MG TABLET Take 2 mg by mouth once daily. X DICYCLOMINE 10 MG CAPSULE Take 1 capsule by mouth befor* X ALIGN 4 MG CAPSULE Take 1 capsule by mouth once * SERTRALINE 100 MG TABLET Take 1 tablet by mouth once d* QUETIAPINE 100 MG TABLET Take 1 tablet by mouth once d* X ALBUTEROL SULFATE HFA 90 MCG/* Inhale 2 Puffs as instructe d * Problem List As Of Date 05/11/2020 Noted Resolved Routine gynecological examination [Z01.419] 05/17/2008 Class: Chronic More... More... Family history of diabetes mellitus [Z83.3] 05/17/2008 More... Calculus of kidney [N20.0] 05/17/2008 More... Allergic rhinitis, cause unspecified [J30.9] 05/17/2008 More... Migraine without aura [G43.009] 05/17/2008 More... Smoker [F17.200] 05/17/2008 More... Impaired fasting glucose [R73.01] 05/17/2008 More... Benign liver cyst [K76.89] 05/24/2010 Class: Chronic More... Ovarian cyst [N83.209] 07/15/2012 Generalized anxiety disorder [F41.1] 03/31/2016 Reactive depression [F32.9] 03/31/2016 More... Adjustment insomnia [F51.02] 03/31/2016 Encounter for screening for cardiovascular diso*03/31/2016 Bilateral low back pain without sciatica [M54.5]06/18/2016 More... Pain in left hip [M25.552] 06/18/2016 Greater trochanteric bursitis [M70.60] 06/18/2016 Hydronephrosis of left kidney [N13.30] 02/05/2017 Hydroureter on left [N13.4] 02/05/2017 Right facial numbness [R20.0] 02/23/2017 Right upper extremity numbness [R20.0] 02/23/2017 Numbness of right lower extremity [R20.0] 02/23/2017 Weakness of right upper extremity [R29.898] 02/23/2017 Weakness of right lower extremity [R29.898] 02/23/2017 Vision blurred [H53.8] 02/23/2017 Lumbar spine pain [M54.5] 02/23/2017 Cervical spine pain [M54.2] 02/23/2017 Abnormal MRI, lumbar spine [R93.7] 02/23/2017 Hydroureter, left [N13.4] 03/30/2017 Lung nodules [R91.8] 01/22/2020 More... Encounter Status:Closed by ELEANOR COHEN on 05/29/20 cnco on 2020-05-11 CNCO Letter Text Normal 05-11-2020 [facility] ([id number]) progress on 2020-04 PROGRESS HNO ID: [id number] Normal 05-10-2020 [facility] Author: Johnny Winn [place] ([id number]) Service: ? Author Type: Physician Type: Progress Notes Filed: 05/10/2020 2:50 PM Note Text: Called patient. Discussed findings of EGD/colonoscopy. Discussed findings of US showing large bilobar liver cysts b ut large one which is complex in the right lobe for which I'm referring h er to Dr Mala Almendarez. Patient reported having the liver cysts for a long time and had attempted drainage several years ago but it was unsuccessful. I mentio tracy that complex cysts needs to be evaluated further. 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 Johnny Winn MD surgical pathology on 2020-05-08 SURGICAL Specimen originated from [facility] Normal 05-08-2020 [place] PATHOLOGY Specimen #: [id number] Clinic Submitting Physician: JOHNNY WINN MD [place] ([id number]) FINAL DIAGNOSIS 1. Random colon, biopsy (A) - Colonic mucosa with no diagn ostic alteration. 2. Duodenum, biopsy (B) - Fragments of duodenal mucosa with no diagnostic alternation. - Separate fragment of gastric antral-type mucosa (see comme nt). 3. Stomach, biopsy (C) - Gastric antral and oxyntic mucosa w ith reactive gastropathy. - Separate fragment of small intestinal-type mucosa (see com ment). - No morphologic evidence of Helicobacter pylori microorgani sms. 4. Distal esophagus, biopsy (D) - Squamous mucosa with mild reflux esophagitis. - No glandular mucosa present. 5. Proximal esophagus, biopsy (E) - Squamous mucosa with no diagnostic alteration. NOE/george/05/09/2020 COMMENT 2. The separate fragment of gastric antral-type mucosa in th e duodenal biopsy could represent gastric heterotopia or tissue carryov er from stomach. Correlation with endoscopic finding is necessary. 3. A separate fragment of small intestinal-type mucosa is pr esent in the gastric biopsy. Correlate with endoscopic findings is necess bryant to determine if this represents a true intestinal metaplasia of the gastric mucosa or a carryover from the duodenum. There is no evide nce of dysplasia. Porsche Whitlock M.D. (Electronic Signature) SPECIMEN SUBMITTED A: RANDOM COLON BIOPSIES B: DUODENUM, BIOPSY C: GASTRIC, BIOPSY D: DISTAL ESOPHAGUS, BIOPSY E: PROXIMAL ESOPHAGUS, BIOPSY CLINICAL DATA ABDOMINAL PAIN, LOOSE STOOLS B: GERD, DYSPHAGIA GROSS DESCRIPTION A. Received in formalin are multiple pieces of musa, soft t issue aggregating to 0.9 x 0.2 x 0.2 cm. Totally submitted in one cassette. Gross examination performed at [facility], [address] [place] [address] [place] 05/08/2020 11:06:23 PM B. Received in formalin are multiple pieces of musa, soft t issue aggregating to 0.7 x 0.2 x 0.1 cm. Totally submitted in one cassette. C. Received in formalin are multiple pieces of musa, soft t issue aggregating to 0.4 x 0.2 x 0.2 cm. Totally submitted in one cassette. D. Received in formalin are two pieces of musa, soft tissue a ggregating to 0.3 x 0.2 x 0.1 cm. Totally submitted in one cassette. E. Received in formalin are two pieces of musa-white, soft ti ssue aggregating to 0.5 x 0.2 x 0.1 cm. Totally submitted in one cassette. Gross examination performed at [facility], [address] [place] [address] JT 05/08/2020 11:23:05 PM Date of Report: 05/11/2020 Date of Procedure: 05/08/2020 Date of Receipt: 05/08/2020 Submitted by: JOHNNY WINN MD Location: [facility] Diagnostic interpretation performed at [facility], [address] [place] [address]. CLIA Number: [id number] pt ed on 2020-05-08 PT ED HNO ID: [id number] Normal 05-08-2020 [facility] Author: Penny Benedict RN [place] ([id number]) Service: ? Author Type: Registered Nurse Type: Patient Education Filed: 05/08/2020 1:37 PM Note Text: LEARNING RESPONSE METHOD OF INSTRUCTION: Individual instruction PATIENT / FAMILY RESPONSE: Verbalizes understanding of: inst ructions FOLLOW-UP PLAN: Await EGD pathology,repeat colonoscopy in 5 years. SUPPLEMENTAL MATERIAL: Procedure Discharge Instructions,High fiber and diverticulosis ,GERD and hiatal hernia as well as protonix h andouts given REFERRAL (RECOMMENDATION): None Electronically Signed By: Penny Benedict RN history physical on 2020-05-08 HISTORY HNO ID: [id number] Normal 05-08-2020 [place] PHYSICAL Author: Johnny Winn [facility] Service: Gastroenterology [place] Author Type: Physician ([id number]) Type: HANDP Filed: 05/08/2020 12:46 PM Note Text: HISTORY AND PHYSICAL Sally Mcgregor, 39 year old female here for EGD/colonosco py Current history and physical on file: Yes Is a new History and Physical required for today's visit? No Indication for procedure: Abdominal pain, Dysphagia, GERD, N ausea AND Vomiting and Rectal Bleeding PROCEDURE(S) SCHEDULED FOR: Colonoscopy with or without biopsies and with or without rem oval of polyps or lesions, dilation (any means), treatment of bleedi ng (any means), based on clinical findings. and EGD (Esophagogastroduodenoscopy) with or without biopsies, remov al of polyps or lesions, dilation ( any means), treatment of bleeding ( a ny means), Barrx treatment of Marquez's Esophagus, image tube placement or cryo therapy treatment based on clinical findings. BASELINE BEHAVIOR: Calm BASELINE ORIENTATION: A AND O x3 All medications and allergies reviewed: Yes Skin Assessment: Warm dry mucus membranes pink Airway/Respiratory Assessment: Airway: visualization of the uvula- Yes Mouth: opening greater than 2 fingerbreadths- Yes Neck: full range of motion- Yes Breath sounds clear/equal- Yes Cardiac Assessment: Regular rate and rhythm without murmur Abdominal Assessment: Abdomen soft, non-tender, no masses or organomegaly. Sedation Plan: Moderate Additional Comments: None Johnny Winn MD anes pre-op on 2019 ANES PRE-OP HNO ID: [id number] Normal 0 [facility] Author: Tania Mata ([id number]) Service: ? Author Type: Nurse Knocker Off Type: Anesthesia Preprocedure Evaluation Filed: 05/08/2020 12:36 PM Note Text: ANESTHESIOLOGY DAY OF SURGERY NOTE : 1980 * No procedures listed * * No surgeons listed * Estimated body mass index is 37.98 kg/m? as calculated from the following: Height as of 04/26/20: 154.9 cm (5' 1). Weight as of 04/26/20: 91.2 kg (201 lb). Most recent hematocrit and potassium results: Hematocrit 40.4 02/15/2020 Potassium 3.7 02/15/2020 Relevant Problems CARDIO (+) Migraine without aura -RENAL (+) Benign liver cyst (+) Calculus of kidney (+) Hydronephrosis of left kidney I - PHYSICAL EVALUATION AIRWAY Patient intubated: No. Tracheostomy tube not present Mallampati: II. TM distance: >3 FB. Neck ROM: full ROM without neurological symptoms. Mouth opening: adequate. Short neck: no. Thick neck: no DENTAL Dentures, upper: complete. Additional exam findings: no II - ANESTHESIA PLAN ASA Score: 2 Anesthetic Plan: MAC The patient is a current smoker. NPO Status: adequate Monitoring plan: standard ASA. Postoperative analgesic plan: parenteral or oral opioids and multimodal analgesia. Anesthetic Risks, Benefits, Alternatives, Personnel Discusse d. Consent obtained from: patient. Patient / Surrogate agrees to blood products: blood products not planned Significant changes in the patient condition since the Histo ry and Physical, not otherwise documented in primary service progre ss note: no. Potential Anesthesia issues that may suggest increased risk of complications or contraindication to planned procedure: none . No vitals data found for the desired time range. Outpatient Medications as of 05/08/2020 Medication Sig - pantoprazole DR (PROTONIX) 40 mg tablet Take 1 tablet by m outh daily before breakfast. Take on empty stomach, 1/2 hr before meal. - diphenhydrAMINE (BENADRYL) 25 mg capsule Take 50 mg by nick th every 6 hours as needed. - estradiol (ESTRACE) 2 mg tablet Take 2 mg by mouth once da federico. - dicyclomine (BENTYL) 10 mg capsule Take 1 capsule by mouth before meals and at bedtime. Use as directed - Bifidobacterium Infantis (ALIGN) 4 mg cap Take 1 capsule b y mouth once daily. - sertraline (ZOLOFT) 100 mg tablet Take 1 tablet by mouth o nce daily. - QUEtiapine (SEROQUEL) 100 mg tablet Take 1 tablet by mouth once daily. - albuterol HFA (VENTOLIN HFA) 90 mcg/actuation inhaler Inha le 2 Puffs as instructed every 4 hours as needed. Facility-Administered Medications as of 05/08/2020 Medication Dose Route Frequency - lactated ringers infusion 30 mL/hr INTRAVENOUS CONTINUOUS I have interviewed and examined the patient. I have reviewed the medical record and/or the pre-anesthesia evaluation, pertinent labs, and test results. This contains updated information obtained within 48 hours o f Surgery/Procedure. SIGNATURE: Tania Castañeda APRN.CRNA PATIENT NAME: Sally Mcgregor DATE: May 08, 2020 TIME: 12:26 PM CSN: [id number] anes postproc eval on 2020-05-08 ANES POSTPROC EVAL HNO ID: [id number] Normal [facility] Author: Tania Mata ([id number]) Service: ? Author Type: Nurse Knocker Off Type: Anesthesia Postprocedure Evaluation Filed: 05/08/2020 1:36 PM Note Text: POST ANESTHESIA EVALUATION NOTE : 1980 Procedure Summary Date: 05/08/20 Room / Location: Ambulatory Surgery Anesthesia Start: 1250 Anesthesia Stop: 1336 Procedures: EGD COLONOSCOPY - DIAGNOSTIC Diagnosis: Generalized abdominal pain Loose stools Dyspepsia Gastroesophageal reflux disease, esophagitis presence not sp ecified Other dysphagia History of acute pancreatitis Bloating Nausea and vomiting, intractability of vomiting not specifie d, unspecified vomiting type Scheduled Providers: Johnny Winn Responsible Provide r: Tania Richard) Garry Anesthesia Type: MAC ASA Status: 2 Anesthesia Type: MAC Last vitals Vitals Value Taken Time BP 93/52 05/08/20 1323 Temp 36.6 ?C (97.9 ?F) 05/08/20 1323 Pulse 94 05/08/20 1317 Resp 18 05/08/20 1323 SpO2 93 % 05/08/20 1323 Post Anesthesia Patient Status Patient Evaluation: PACU. PACU/ICU Patient Condition: stable. Anticipated Disposition: phase 2 then home. Neurological Status: aware and responsive. Pulmonary Status: breathing comfortably on room air Airway Control: returned to baseline unsupported. Cardiovascular Status: stable. Pain Management: clinically adequate - multimodal analgesia pain management approach Postoperative Hydration: acceptable. Intraoperative Events: no significant anesthesia events Post Operative Nausea/Vomiting Status: no significant post o perative nausea or vomiting Anesthetic Observations: no significant anesthetic observations Recommendation: continue current plan of care. SIGNATURE: Tania Castañeda APRN.CRNA PATIENT NAME: Sally Mcgregor DATE: May 08, 2020 TIME: 1:36 PM CSN: [id number] No panel information on 2020-05-08 Supervisor [facility] Gastrointestinal Endoscopy ([id number]) Patient Name: Sally Mcgregor Procedure Date: 05/08/2020 1:02 PM Date of : 1980 Admit Type: Outpatient Age: 39 Room: Procedure Room 1 Gender: Female Note Status: Finalized Attending MD: Johnny Winn MD Sedation Initiated: N/A - MAC Procedure: Colonoscopy Indications: Generalized abdominal pain, Chronic diarrhea Providers: Johnny Winn MD Patient Profile: This is a 39 year old female. Refer to note in patient chart for documentation of h istory and physical. Last Colonoscopy: none. Th e patient's first colonoscopy is today. Referring Physician: Medicines: Propofol per Anesthesia Complications: No immediate complications. Requesting Provider: Procedure: Pre-Anesthesia Assessment: - Prior to the procedure, a History and Physical was performed, and patient medicatio ns and allergies were reviewed. The patient 's tolerance of previous anesthesia was also revi ewed. The risks and benefits of the procedure and the sedation options and risks were disc ussed with the patient. All questions were answ ered, and informed consent was obtained. Prior Anticoagulants: The patient has take n no previous anticoagulant or antiplatelet agents . ASA Grade Assessment: II - A patient with mild systemic disease. After reviewing the risks a nd benefits, the patient was deemed in satisfacto ry condition to undergo the procedure. After I obtained informed consent, t he scope was passed under direct vision. Througho ut the procedure, the patient's blood press ure, pulse, and oxygen saturations were monitore d continuously. The Colonoscope was in troduced through the anus and advanced to the cecum, identified by appendiceal orifice an d ileocecal valve. I was present and participate d during the entire procedure, including non-guzman portions, and during the administration and monito ring of Moderate Sedation. The colonoscopy w as performed without difficulty. The patient tole rated the procedure well. The quality of the b owel preparation was poor. The ileocecal valve, appendiceal orifice, and rectum were photographed. Findings: The perianal and digital rectal examinations were normal . A few small-mouthed diverticula were found in the sigmoi d colon and descending colon. Biopsies for histology were taken with a cold forceps from the entire colon for evaluation of microsco pic colitis. Non-bleeding internal hemorrhoids were found during retr oflexion. The hemorrhoids were mild. A moderate amount of semi-solid stool was found in the e ntire colon, interfering with visualization. Lavage of the area was p erformed using a large amount, resulting in clearance with fair v isualization. Impression: - Preparation of the colon was poor . - Diverticulosis in the sigmoid colo n and in the descending colon. Biopsied. - Non-bleeding internal hemorrhoids. - Stool in the entire examined colon . Recommendation: - Patient has a contact [facility] for [facility]. The signs and symptoms of potential delayed complications were discussed with the patient. Return to normal activities tomorrow. Written discharge instructions were provided to the patient. - Resume previous diet. - Continue present medications. - Await pathology results. - Repeat colonoscopy in 5 years philippe use the bowel preparation was suboptimal. - Return to GI office in 3 months. - The patient has taken no previous anticoagulant or antiplatelet agents. Attending Participation: I personally performed the entire p rocedure. Scope In: 1:04:40 PM Scope Out: 1:16:51 PM MD Johnny Ackerman MD 05/08/2020 1:26:16 PM This report has been signed electronically by Johnny Winn MD Number of Addenda: 0 Note Initiated On: 05/08/2020 1:02 PM Estimated Blood Loss: Estimated blood loss: none. Supervisor [facility] Gastrointestinal Endoscopy ([id number]) Patient Name: Sally Mcgregor Procedure Date: 05/08/2020 12:47 PM Date of : 1980 Admit Type: Outpatient Age: 39 Room: Procedure Room 1 Gender: Female Note Status: Finalized Attending MD: Johnny Winn MD Sedation Initiated: N/A - MAC Procedure: Upper GI endoscopy Indications: Generalized abdominal pain, Dysphag ia, Heartburn, Suspected gastro-esophageal reflux d isease Providers: Johnny Winn MD Patient Profile: This is a 39 year old female. Refer to note in patient chart for documentation of h istory and physical. Referring Physician: Medicines: Propofol per Anesthesia Complications: No immediate complications. Requesting Provider: Procedure: Pre-Anesthesia Assessment: - Prior to the procedure, a History and Physical was performed, and patient medicatio ns and allergies were reviewed. The patient 's tolerance of previous anesthesia was also revi ewed. The risks and benefits of the procedure and the sedation options and risks were disc ussed with the patient. All questions were answ ered, and informed consent was obtained. Prior Anticoagulants: The patient has take n no previous anticoagulant or antiplatelet agents . ASA Grade Assessment: II - A patient with mild systemic disease. After reviewing the risks a nd benefits, the patient was deemed in satisfacto ry condition to undergo the procedure. After obtaining informed consent, th e endoscope was passed under direct vision. Thro ughout the procedure, the patient's blood press ure, pulse, and oxygen saturations were monitore d continuously. The Endoscope was intr oduced through the mouth, and advanced to t he second part of duodenum. I was present and participated during the entire procedure, includi ng non-guzman portions, and during the administrat ion and monitoring of Moderate Sedation. The upper GI endoscopy was accomplished without d ifficulty. The patient tolerated the procedure well. Findings: The Z-line was regular and was found 34 cm from the inci sors. Esophagogastric landmarks were identified: the Z-line wa s found at 34 cm, the gastroesophageal junction was found at 34 cm and the site of hiatal narrowing was found at 36 cm from the incisors. A 2 cm hiatal hernia was present. Scattered severe inflammation characterized by congestio n (edema), erosions, erythema, friability, granularity and aphthous ulcerations was found in the prepyloric region of the stomach. Biops ies were taken with a cold forceps for histology. Patchy mild inflammation characterized by congestion (ed rosa), erosions and aphthous ulcerations was found in the duode nal bulb. Biopsies were taken with a cold forceps for histology. Impression: - Z-line regular, 34 cm from the in cisors. - Esophagogastric landmarks identifi ed. - 2 cm hiatal hernia. - Gastritis. Biopsied. - Duodenitis. Biopsied. Recommendation: - Await pathology results. - The patient has taken no previous anticoagulant or antiplatelet agents. - Patient has a contact number avail able for emergencies. The signs and symptoms of potential delayed complications were discussed with the patient. Return to normal activities tomorrow. Written discharge instructions were provided to the patient. - Resume previous diet. - Continue present medications. - Discontinue aspirin and NSAIDs dalia ly. - Use Protonix (pantoprazole) 40 mg PO BID for 6 weeks. Attending Participation: I personally performed the entire p rocedure. Scope In: 12:54:42 PM Scope Out: 1:01:02 PM MD Johnny Ackerman MD 05/08/2020 1:22:44 PM This report has been signed electronically by Johnny Winn MD Number of Addenda: 0 Note Initiated On: 05/08/2020 12:47 PM Estimated Blood Loss: Estimated blood loss: none. cnpn on 2020-05-07 CNPN Telephone (GSTNOR) Normal 05-07-2020 [facility] SALLY MCGREGOR ([id number]) 1980 F [facility] Time Provider Department ([id number]) 05/07/20 JOHNNY WINN GSTNOR During your visit today, we recorded the following informati on about you: Pierce Barber Ma 05/07/2020 11:59 AM Signed ----- Message from Johnny Winn sent at 05/01/2020 2:5 7 PM EDT ----- Normal IgG Will need EUS for unexplained pancreatitis. MD Pierce Cunningham Ma 05/07/2020 12:01 PM Signed FYI- I tried on multiple occasions to call her, her vo icemail has been full. She actually called here today, has colon and EGD schedule d tomorrow. I let her know you may or may not do the EGD since you had wanted to do and EUS, please also note she just had regular US done. Also, lab did not draw the celiac panel. Pierce Barber RESIDENTIAL SALES CONSULTANT Allergies As of Date: 05/07/2020 Noted Allergy Reaction PENICILLINS 12/07/2009 2 - Rash CEPHALEXIN 10/20/2019 9 - Itching CHLORHEXIDINE 10/29/2016 2 - Rash Comments: Skin rash ASA (SALICYLATES) 01/27/2011 14 - Other: See Comments Comments: ulcers CONTRAST DYE (IODINE) 05/17/2008 12 - Shortness of Breath IBUPROFEN 06/18/2016 8 - GI Upset PREDNISONE 06/18/2016 14 - Other: See Comments Comments: makes agitated and mean Date Reviewed: 04/26/2020 Reviewed by: Johnny Winn - Fully Assessed Reason for Visit: Patient Update [1234] Prescriptions as of 05/07/2020 Sig: PANTOPRAZOLE 40 MG TABLET,DEL* Take 1 tablet by mouth daily * DIPHENHYDRAMINE 25 MG CAPSULE Take 50 mg by mouth every 6 h* ESTRADIOL 2 MG TABLET Take 2 mg by mouth once daily. DICYCLOMINE 10 MG CAPSULE Take 1 capsule by mouth befor* ALIGN 4 MG CAPSULE Take 1 capsule by mouth once * SERTRALINE 100 MG TABLET Take 1 tablet by mouth once d* QUETIAPINE 100 MG TABLET Take 1 tablet by mouth once d* ALBUTEROL SULFATE HFA 90 MCG/* Inhale 2 Puffs as instructed * Problem List As Of Date 05/07/2020 Noted Resolved Routine gynecological examination [Z01.419] 05/17/2008 Class: Chronic More... More... Family history of diabetes mellitus [Z83.3] 05/17/2008 More... Calculus of kidney [N20.0] 05/17/2008 More... Allergic rhinitis, cause unspecified [J30.9] 05/17/2008 More... Migraine without aura [G43.009] 05/17/2008 More... Smoker [F17.200] 05/17/2008 More... Impaired fasting glucose [R73.01] 05/17/2008 More... Benign liver cyst [K76.89] 05/24/2010 Class: Chronic More... Ovarian cyst [N83.209] 07/15/2012 Generalized anxiety disorder [F41.1] 03/31/2016 Reactive depression [F32.9] 03/31/2016 More... Adjustment insomnia [F51.02] 03/31/2016 Encounter for screening for cardiovascular diso*03/31/2016 Bilateral low back pain without sciatica [M54.5]06/18/2016 More... Pain in left hip [M25.552] 06/18/2016 Greater trochanteric bursitis [M70.60] 06/18/2016 Hydronephrosis of left kidney [N13.30] 02/05/2017 Hydroureter on left [N13.4] 02/05/2017 Right facial numbness [R20.0] 02/23/2017 Right upper extremity numbness [R20.0] 02/23/2017 Numbness of right lower extremity [R20.0] 02/23/2017 Weakness of right upper extremity [R29.898] 02/23/2017 Weakness of right lower extremity [R29.898] 02/23/2017 Vision blurred [H53.8] 02/23/2017 Lumbar spine pain [M54.5] 02/23/2017 Cervical spine pain [M54.2] 02/23/2017 Abnormal MRI, lumbar spine [R93.7] 02/23/2017 Hydroureter, left [N13.4] 03/30/2017 Lung nodules [R91.8] 01/22/2020 More... Encounter Status:Closed by PIERCE BARBER MA on 05/09/20 cnpn on 2020-05-01 CNPN Telephone (GSTNOR) Normal 05-01-2020 [facility] SALLY MCGREGOR ([id number]) 1980 F [facility] Date Time Provider Department ([id number]) 05/01/20 JOHNNY WINN GSTNOR During your visit today, we recorded the following informati on about you: Pierce Barber Ma 05/01/2020 3:46 PM Signed ----- Message from Johnny Winn sent at 05/01/2020 2:5 7 PM EDT ----- Normal IgG Will need EUS for unexplained pancreatitis. MD Pierce Cunningham Ma 05/01/2020 3:47 PM Signed Tried to call patient voicemail is full. Also noted celiac p elier was not drawn, left message with [facility] to contact patient for redraw Pierce Barber CMA Allergies As of Date: 05/01/2020 Noted Allergy Reaction PENICILLINS 12/07/2009 2 - Rash CEPHALEXIN 10/20/2019 9 - Itching CHLORHEXIDINE 10/29/2016 2 - Rash Comments: Skin rash ASA (SALICYLATES) 01/27/2011 14 - Other: See Comments Comments: ulcers CONTRAST DYE (IODINE) 05/17/2008 12 - Shortness of Breath IBUPROFEN 06/18/2016 8 - GI Upset PREDNISONE 06/18/2016 14 - Other: See Comments Comments: makes agitated and mean Date Reviewed: 04/26/2020 Reviewed by: Johnny Winn - Fully Assessed Reason for Visit: Results [95] Prescriptions as of 05/01/2020 Sig: PANTOPRAZOLE 40 MG TABLET,DEL* Take 1 tablet by mouth daily * DIPHENHYDRAMINE 25 MG CAPSULE Take 50 mg by mouth every 6 h* ESTRADIOL 2 MG TABLET Take 2 mg by mouth once daily. METRONIDAZOLE 500 MG TABLET Take 1 tablet by mouth three * DICYCLOMINE 10 MG CAPSULE Take 1 capsule by mouth befor* ALIGN 4 MG CAPSULE Take 1 capsule by mouth once * SERTRALINE 100 MG TABLET Take 1 tablet by mouth once d* QUETIAPINE 100 MG TABLET Take 1 tablet by mouth once d* ALBUTEROL SULFATE HFA 90 MCG/* Inhale 2 Puffs as instructed * Problem List As Of Date 05/01/2020 Noted Resolved Routine gynecological examination [Z01.419] 05/17/2008 Class: Chronic More... More... Family history of diabetes mellitus [Z83.3] 05/17/2008 More... Calculus of kidney [N20.0] 05/17/2008 More... Allergic rhinitis, cause unspecified [J30.9] 05/17/2008 More... Migraine without aura [G43.009] 05/17/2008 More... Smoker [F17.200] 05/17/2008 More... Impaired fasting glucose [R73.01] 05/17/2008 More... Benign liver cyst [K76.89] 05/24/2010 Class: Chronic More... Ovarian cyst [N83.209] 07/15/2012 Generalized anxiety disorder [F41.1] 03/31/2016 Reactive depression [F32.9] 03/31/2016 More... Adjustment insomnia [F51.02] 03/31/2016 Encounter for screening for cardiovascular diso*03/31/2016 Bilateral low back pain without sciatica [M54.5]06/18/2016 More... Pain in left hip [M25.552] 06/18/2016 Greater trochanteric bursitis [M70.60] 06/18/2016 Hydronephrosis of left kidney [N13.30] 02/05/2017 Hydroureter on left [N13.4] 02/05/2017 Right facial numbness [R20.0] 02/23/2017 Right upper extremity numbness [R20.0] 02/23/2017 Numbness of right lower extremity [R20.0] 02/23/2017 Weakness of right upper extremity [R29.898] 02/23/2017 Weakness of right lower extremity [R29.898] 02/23/2017 Vision blurred [H53.8] 02/23/2017 Lumbar spine pain [M54.5] 02/23/2017 Cervical spine pain [M54.2] 02/23/2017 Abnormal MRI, lumbar spine [R93.7] 02/23/2017 Hydroureter, left [N13.4] 03/30/2017 Lung nodules [R91.8] 01/22/2020 More... Encounter Status:Closed by PIERCE BARBER MA on 05/01/20 us abd spleen -nb o n 2020-04-30 US ABD SPLEEN * * *Final Report* * * Normal [facility] - DATE OF EXAM: Apr 30 2020 4:13PM [facility] ([id number]) [facility] 1232 - US ABD SPLEEN -NB / PROCEDURE REASON: multiple diagnoses * * * * Physician Interpretation * * * * EXAM TITLE: US ABD RIGHT UPPER QUADRANT, US ABD SPLEEN -NB HISTORY: Abdominal pain, nausea and vomiting. TECHNIQUE: Sonography of the right upper quadrant and spleen was performed. Images were obtained and stored in a permanent ar chive. MQ: URUQ_1 COMPARISON: CT abdomen on 10/13/2012 RESULT: Pancreas: Normal sonographic appearance in the visualized po rtions. Portions obscured: tail Liver: Echotexture: Normal, homogeneous. Echogenicity: Normal Surface contour: Smooth Lesions: Multiple cysts identified with the largest ones randa suring 2.9 x 2.6 x 2.6 cm (left lobe) and 9.9 x 5.9 x 9.2 cm (right lobe, complex cyst). Biliary: No intrahepatic biliary duct dilation. CBD: 3 mm in diameter. Gallbladder: Surgically absent -Other: Negative sonographic England's sign. Kidneys: Within normal limits, both measuring 11.7 cm in shaye gth. Spleen: Normal sonographic appearance of the spleen, measuri ng 11.4 cm in length. IMPRESSION: Liver cysts including a complex cyst, enlarged compared to p rior study. Parts Department Manager: HERMINIO Transcribe Date/Time: Apr 30 2020 4:19P Dictated by : KORI BLANKENSHIP MD This examination was interpreted and the report reviewed and electronically signed by: KORI BLANKENSHIP MD on Apr 30 2020 4:27PM EST [id number] us abd right upper quadrant on 2020-04-30 US ABD RIGHT * * *Final Report* * * Normal 04-14 [facility] UPPER QUADRANT DATE OF EXAM: Apr 30 2020 4:13PM [facility] ([id number]) [facility] 1032 - US ABD RIGHT UPPER QUADRANT / 25 PROCEDURE REASON: multiple diagnoses * * * * Physician Interpretation * * * * EXAM TITLE: US ABD RIGHT UPPER QUADRANT, US ABD SPLEEN -NB HISTORY: Abdominal pain, nausea and vomiting. TECHNIQUE: Sonography of the right upper quadrant and spleen was performed. Images were obtained and stored in a permanent ar chive. MQ: URUQ_1 COMPARISON: CT abdomen on 10/13/2012 RESULT: Pancreas: Normal sonographic appearance in the visualized po rtions. Portions obscured: tail Liver: Echotexture: Normal, homogeneous. Echogenicity: Normal Surface contour: Smooth Lesions: Multiple cysts identified with the largest ones randa suring 2.9 x 2.6 x 2.6 cm (left lobe) and 9.9 x 5.9 x 9.2 cm (right lobe, complex cyst). Biliary: No intrahepatic biliary duct dilation. CBD: 3 mm in diameter. Gallbladder: Surgically absent -Other: Negative sonographic England's sign. Kidneys: Within normal limits, both measuring 11.7 cm in shaye gth. Spleen: Normal sonographic appearance of the spleen, measuri ng 11.4 cm in length. IMPRESSION: Liver cysts including a complex cyst, enlarged compared to p rior study. Parts Department Manager: [facility] Transcribe Date/Time: Apr 30 2020 4:19P Dictated by : KORI BLANKENSHIP MD This examination was interpreted and the report reviewed and electronically signed by: KORI BLANKENSHIP MD on Apr 30 2020 4:27PM EST [id number] progress on 2020-04 PROGRESS HNO ID: [id number] Normal 04-30-2020 [facility] Author: Vianey Ramos (Tech) [facility] ([id number]) Service: ? Author Type: Radiographic Technologist Type: Progress Notes Filed: 04/30/2020 4:14 PM Note Text: Radiology Service Progress Note PATIENT NAME: Sally Mcgregor DATE OF SERVICE: April 30, 2020 TIME: 4:13 PM PATIENT IDENTITY VERIFICATION COMPLETED USING TWO (2) IDENTI FIERS: Name and Date of confirmed by patient verbally. FALL SCREENING: Has the patient had 2 falls in the last year or 1 fall with injury or currently using an Ambulatory Assistive Devic e (Walker, Cane, Wheelchair, Crutches, etc.)? No PATIENT GENDER DATA: Female. status: : No status: NO. PATIENT RELEVANT IMPLANT DATA REVIEWED: Not Applicable RADIOLOGY DEPARTMENT: Ultrasound PERIPHERAL IV DATA: Not applicable SIGNED BY: Vianey Ramos April 30, 2020 4:13 PM obsolete on 2020-04 OBSOLETE Refill (FAMPWS) Normal 04-30-[address] [facility] SALLY MCGREGOR ([id number]) 1980 [facility] Time Provider Department ([id number]) 04/30/20 MARCELINO MEJIA FAMPWS During your visit today, we recorded the following informati on about you: Valente Bruce Ma 04/30/2020 11:50 AM Signed Patient has been identified by name and date of : Yes Pending Prescriptions Disp Refills PANTOPRAZOLE 40 MG TABLET,DELAYED RELEASE 30 tablet 1 Sig: Take 1 tablet by mouth daily before breakfast. Take on empty stomach, 1/2 hr before meal. LIGIA: No RX INSTRUCTIONS: Patient aware RX will be sent to pharmacy. No need to notify patient. Valente Bruce Ma Last ov: 03/2020 Last refill: 02/2020 No appointment scheduled Marcelino Mejia MD 04/30/2020 1:26 PM Signed The following approved medic ation requests have been transmitted electronically. Signed Prescriptions Disp Refills pantoprazole DR (PROTONIX) 40 mg tablet 30 tablet 3 Sig: Take 1 tablet by mouth daily before breakfast. Take on empty stomach, 1/2 hr before meal. LIGIA: No Authorizing Provider: MARCELINO MEJIA MD Allergies As of Date: 04/30/2020 Noted Allergy Reaction PENICILLINS 12/07/2009 2 - Rash CEPHALEXIN 10/20/2019 9 - Itching CHLORHEXIDINE 10/29/2016 2 - Rash Comments: Skin rash ASA (SALICYLATES) 01/27/2011 14 - Other: See Comments Comments: ulcers CONTRAST DYE (IODINE) 05/17/2008 12 - Shortness of Breath IBUPROFEN 06/18/2016 8 - GI Upset PREDNISONE 06/18/2016 14 - Other: See Comments Comments: makes agitated and mean Date Reviewed: 04/26/2020 Reviewed by: Johnny Winn - Fully Assessed Reason for Visit: Refill Request [94] Order(s):pantoprazole DR (PROTONIX) 40 mg tabletTake 1 tablet by mouth daily before breakfast. Take on empty stomach, 1/2 hr before meal. Disp: 30 tabletRfl: 3 Prescriptions as of 04/30/2020 Sig: PANTOPRAZOLE 40 MG TABLET,DEL* Take 1 tablet by mouth daily * DIPHENHYDRAMINE 25 MG CAPSULE Take 50 mg by mouth every 6 h* ESTRADIOL 2 MG TABLET Take 2 mg by mouth once daily. METRONIDAZOLE 500 MG TABLET Take 1 tablet by mouth three * DICYCLOMINE 10 MG CAPSULE Take 1 capsule by mouth befor* ALIGN 4 MG CAPSULE Take 1 capsule by mouth once * SERTRALINE 100 MG TABLET Take 1 tablet by mouth once d* QUETIAPINE 100 MG TABLET Take 1 tablet by mouth once d* ALBUTEROL SULFATE HFA 90 MCG/* Inhale 2 Puffs as instructed * Problem List As Of Date 04/30/2020 Noted Resolved Routine gynecological examination [Z01.419] 05/17/2008 Class: Chronic More... More... Family history of diabetes mellitus [Z83.3] 05/17/2008 More... Calculus of kidney [N20.0] 05/17/2008 More... Allergic rhinitis, cause unspecified [J30.9] 05/17/2008 More... Migraine without aura [G43.009] 05/17/2008 More... Smoker [F17.200] 05/17/2008 More... Impaired fasting glucose [R73.01] 05/17/2008 More... Benign liver cyst [K76.89] 05/24/2010 Class: Chronic More... Ovarian cyst [N83.209] 07/15/2012 Generalized anxiety disorder [F41.1] 03/31/2016 Reactive depression [F32.9] 03/31/2016 More... Adjustment insomnia [F51.02] 03/31/2016 Encounter for screening for cardiovascular diso*03/31/2016 Bilateral low back pain without sciatica [M54.5]06/18/2016 More... Pain in left hip [M25.552] 06/18/2016 Greater trochanteric bursitis [M70.60] 06/18/2016 Hydronephrosis of left kidney [N13.30] 02/05/2017 Hydroureter on left [N13.4] 02/05/2017 Right facial numbness [R20.0] 02/23/2017 Right upper extremity numbness [R20.0] 02/23/2017 Numbness of right lower extremity [R20.0] 02/23/2017 Weakness of right upper extremity [R29.898] 02/23/2017 Weakness of right lower extremity [R29.898] 02/23/2017 Vision blurred [H53.8] 02/23/2017 Lumbar spine pain [M54.5] 02/23/2017 Cervical spine pain [M54.2] 02/23/2017 Abnormal MRI, lumbar spine [R93.7] 02/23/2017 Hydroureter, left [N13.4] 03/30/2017 Lung nodules [R91.8] 01/22/2020 More... Prescriptions ordered this encounter Disp Refills Start End PANTOPRAZOLE 40 MG TABLET,DELAYED RE* 30 t* 3 04/30/2020 Route: ORAL Sig: Take 1 tablet by mouth daily before breakfast. Take on empty stomach, 1/2 hr before meal. Medications Discontinued During This Encounter Prescriptions - pantoprazole DR (PROTONIX) 40 mg tablet (Discontinued) Take 1 tablet by mouth daily before breakfast. Take on empty stomach, 1/2 hr before meal. Encounter Status:Closed by MARCELINO MEJIA on 04/30/20 igg subclasses+total on 2020-04-30 IgG [Mass/Vol] [phone] mg/dL Normal 04-30-2020 [facility] ([id number]) Comment: Performed By: #### IGGSUB ## ##[address] [id number] [phone] IgG Subclass 1 757.6 382.4-928.6 mg/dL Normal 04-30-2020 [facility] ([id number]) Comment: Performed By: #### IGGSUB ## ##[address] [id number] [phone] IgG Subclass 2 398.2 241.8-700.3 mg/dL Normal 04-30-2020 [facility] ([id number]) Comment: Performed By: #### IGGSUB ## ##[address] [id number] [phone] IgG Subclass 3 42.7 21.8-176.1 mg/dL Normal 04-30-2020 [facility] ([id number]) Comment: Performed By: #### IGGSUB ## ##[address] [id number] [phone] IgG Subclass 4 39.7 3.9-86.4 mg/dL Normal 04-30-2020 [facility] ([id number]) Comment: Performed By: #### IGGSUB ## ##[facility] [place] [address] [phone] cnpn on 2020-04-30 CNPN Telephone (GSTNOR) Normal 04-30-2020 [facility] SALLY MCGREGOR ([id number]) 1980 [facility] Date Time Provider Department ([id number]) 04/30/20 JOHNNY WINN GSTNOHerman During your visit today, we recorded the following informati on about you: Pierce Barber Ma 04/30/2020 12:16 PM Signed Tried to return call, voicemaill full Piercehanna Barber MA Allergies As of Date: 04/30/2020 Noted Allergy Reaction PENICILLINS 12/07/2009 2 - Rash CEPHALEXIN 10/20/2019 9 - Itching CHLORHEXIDINE 10/29/2016 2 - Rash Comments: Skin rash ASA (SALICYLATES) 01/27/2011 14 - Other: See Comments Comments: ulcers CONTRAST DYE (IODINE) 05/17/2008 12 - Shortness of Breath IBUPROFEN 06/18/2016 8 - GI Upset PREDNISONE 06/18/2016 14 - Other: See Comments Comments: makes agitated and mean Date Reviewed: 04/26/2020 Reviewed by: Johnny Winn - Fully Assessed Reason for Visit: Returning Patient's Call [[phone]] Prescriptions as of 04/30/2020 Sig: DIPHENHYDRAMINE 25 MG CAPSULE Take 50 mg by mouth every 6 h* ESTRADIOL 2 MG TABLET Take 2 mg by mouth once daily. METRONIDAZOLE 500 MG TABLET Take 1 tablet by mouth three * DICYCLOMINE 10 MG CAPSULE Take 1 capsule by mouth befor* ALIGN 4 MG CAPSULE Take 1 capsule by mouth once * PANTOPRAZOLE 40 MG TABLET,DEL* Take 1 tablet by mouth daily * SERTRALINE 100 MG TABLET Take 1 tablet by mouth once d* QUETIAPINE 100 MG TABLET Take 1 tablet by mouth once d* ALBUTEROL SULFATE HFA 90 MCG/* Inhale 2 Puffs as instructed * Problem List As Of Date 04/30/2020 Noted Resolved Routine gynecological examination [Z01.419] 05/17/2008 Class: Chronic More... More... Family history of diabetes mellitus [Z83.3] 05/17/2008 More... Calculus of kidney [N20.0] 05/17/2008 More... Allergic rhinitis, cause unspecified [J30.9] 05/17/2008 More... Migraine without aura [G43.009] 05/17/2008 More... Smoker [F17.200] 05/17/2008 More... Impaired fasting glucose [R73.01] 05/17/2008 More... Benign liver cyst [K76.89] 05/24/2010 Class: Chronic More... Ovarian cyst [N83.209] 07/15/2012 Generalized anxiety disorder [F41.1] 03/31/2016 Reactive depression [F32.9] 03/31/2016 More... Adjustment insomnia [F51.02] 03/31/2016 Encounter for screening for cardiovascular diso*03/31/2016 Bilateral low back pain without sciatica [M54.5]06/18/2016 More... Pain in left hip [M25.552] 06/18/2016 Greater trochanteric bursitis [M70.60] 06/18/2016 Hydronephrosis of left kidney [N13.30] 02/05/2017 Hydroureter on left [N13.4] 02/05/2017 Right facial numbness [R20.0] 02/23/2017 Right upper extremity numbness [R20.0] 02/23/2017 Numbness of right lower extremity [R20.0] 02/23/2017 Weakness of right upper extremity [R29.898] 02/23/2017 Weakness of right lower extremity [R29.898] 02/23/2017 Vision blurred [H53.8] 02/23/2017 Lumbar spine pain [M54.5] 02/23/2017 Cervical spine pain [M54.2] 02/23/2017 Abnormal MRI, lumbar spine [R93.7] 02/23/2017 Hydroureter, left [N13.4] 03/30/2017 Lung nodules [R91.8] 01/22/2020 More... Encounter Status:Closed by PIERCE BARBER MA on 04/30/20 No panel information on 2020-04-30 [facility] ([id number]) [facility]pn [facility]) [facility]-27-2020 [facility] TOSHIASALLY TORRES ([id number]) 1980 [facility] Date Time Provider Department ([id number]) 04/27/20 MARCELINO MEJIA During your visit today, we recorded the following informati on about you: Christopher Carcamo RN 04/27/2020 9:04 AM Signed Patient asking if pcp would send Rx for phenergan to [facility]. Reports she's had nausea for weeks. Saw GI yesterday, and has scheduled an EGD and colonoscopy. Reports the GI specialist telma aguirres her there is something wrong with her digestive system. Marcelino Mejia MD 04/27/2020 5:45 PM Signed Advise patient to request the nausea medication from the gastro physician she seen. Branden Sanders Ma 04/27/2020 5:50 PM Signed Spoke to patient and she at ER who gave her nausea medicine Branden Sanders Ma Allergies As of Date: 04/27/2020 Noted Allergy Reaction PENICILLINS 12/07/2009 2 - Rash CEPHALEXIN 10/20/2019 9 - Itching CHLORHEXIDINE 10/29/2016 2 - Rash Comments: Skin rash ASA (SALICYLATES) 01/27/2011 14 - Other: See Comments Comments: ulcers CONTRAST DYE (IODINE) 05/17/2008 12 - Shortness of Breath IBUPROFEN 06/18/2016 8 - GI Upset PREDNISONE 06/18/2016 14 - Other: See Comments Comments: makes agitated and mean Date Reviewed: 04/26/2020 Reviewed by: Johnny Winn - Fully Assessed Reason for Visit: Medication request [Other] Prescriptions as of 04/27/2020 Sig: DIPHENHYDRAMINE 25 MG CAPSULE Take 50 mg by mouth every 6 h* ESTRADIOL 2 MG TABLET Take 2 mg by mouth once daily. METRONIDAZOLE 500 MG TABLET Take 1 tablet by mouth three * DICYCLOMINE 10 MG CAPSULE Take 1 capsule by mouth befor* ALIGN 4 MG CAPSULE Take 1 capsule by mouth once * PANTOPRAZOLE 40 MG TABLET,DEL* Take 1 tablet by mouth daily * SERTRALINE 100 MG TABLET Take 1 tablet by mouth once d* QUETIAPINE 100 MG TABLET Take 1 tablet by mouth once d* ALBUTEROL SULFATE HFA 90 MCG/* Inhale 2 Puffs as instructed * Problem List As Of Date 04/27/2020 Noted Resolved Routine gynecological examination [Z01.419] 05/17/2008 Class: Chronic More... More... Family history of diabetes mellitus [Z83.3] 05/17/2008 More... Calculus of kidney [N20.0] 05/17/2008 More... Allergic rhinitis, cause unspecified [J30.9] 05/17/2008 More... Migraine without aura [G43.009] 05/17/2008 More... Smoker [F17.200] 05/17/2008 More... Impaired fasting glucose [R73.01] 05/17/2008 More... Benign liver cyst [K76.89] 05/24/2010 Class: Chronic More... Ovarian cyst [N83.209] 07/15/2012 Generalized anxiety disorder [F41.1] 03/31/2016 Reactive depression [F32.9] 03/31/2016 More... Adjustment insomnia [F51.02] 03/31/2016 Encounter for screening for cardiovascular diso*03/31/2016 Bilateral low back pain without sciatica [M54.5]06/18/2016 More... Pain in left hip [M25.552] 06/18/2016 Greater trochanteric bursitis [M70.60] 06/18/2016 Hydronephrosis of left kidney [N13.30] 02/05/2017 Hydroureter on left [N13.4] 02/05/2017 Right facial numbness [R20.0] 02/23/2017 Right upper extremity numbness [R20.0] 02/23/2017 Numbness of right lower extremity [R20.0] 02/23/2017 Weakness of right upper extremity [R29.898] 02/23/2017 Weakness of right lower extremity [R29.898] 02/23/2017 Vision blurred [H53.8] 02/23/2017 Lumbar spine pain [M54.5] 02/23/2017 Cervical spine pain [M54.2] 02/23/2017 Abnormal MRI, lumbar spine [R93.7] 02/23/2017 Hydroureter, left [N13.4] 03/30/2017 Lung nodules [R91.8] 01/22/2020 More... Encounter Status:Closed by BRANDEN SANDERS MA on 04/27/20 progress on 2020-04 PROGRESS HNO ID: [id number] Normal 04-26-2020 [facility] Author: Johnny Winn [facility] ([id number]) Service: ? Author Type: Physician Type: Progress Notes Filed: 04/26/2020 3:29 PM Note Text: Sally Mcgregor is a 39 year old female who presents for P ancreatitis, Abdominal Pain, and Nausea AND Vomiting. HPI: Ms Mcgregor is referred her for evaluation of an episode of p ancreatitis although she mentions multitude of GI complaints today. Reports nausea, vomiting and significant bloating. Abdominal cramps + Gets worse after a BM. She is getting 3 BMs/day. Has noted occasional blood in stool of long duration - attri butes to hemorrhoids. Passage of foul smelling gas. Excessive burping. Heartburn + Takes Protonix 40mg po daily at 9am that was helping with GE RD but since few week after her above mentioned symptoms started protonix not helping much. Also mentions difficulty in swallowing. Had choking episodes. No prior EGD/colonoscopy. Of note she presented to the ED in [place] in January 2020 for a bdominal pain of [address] abdomen was essentially unremarkable i ncluding pancreas. Was found to have lipase of 193 on 02/15/2020. Amylase normal. Hepatic function panel. Has h/o cholecystectomy in 1998. Denies NSAIDs. Smoking - quit 3 months ago. 1 pack/day X 15 years. Etoh - denies. Drugs - denies. Record Review: [facility] records reviewed PAST MEDICAL HISTORY Diagnosis Date - Allergic rhinitis, cause unspecified 05/17/2008 Spring and summer - Benign liver cyst 05/24/2010 CT scan at [facility] 11/2009 and 04/2010 showe 4 mm increase in size . No pain. No elevated LFTs on 03/11/2010. - Calculus of kidney 05/17/[address] Nicolas: Hospitalized age 20, and again later -- no procedures so far ([facility], most, 1995 [facility]) - Dysmenorrhea - History of blood transfusion - Impaired fasting glucose 05/17/2008 Sugar 104 fasting, 04/21 - MIGRAINE 05/17/2008 Has used imitrex with good response; Keeps Vicodin on hand w hen needed; - Ovarian cyst 07/15/2012 - Pancreatitis - Smoker 05/17/2008 Started age 26, 1/2 a PPD PAST SURGICAL HISTORY Procedure Laterality Date - CHOLECYSTECTOMY HX - DANDC, DIAG AND/OR THERAPEUTIC - LIGATE FALLOPIAN TUBE - PAST SURGICAL HISTORY OF uterine ablation - PAST SURGICAL HISTORY OF cyst removal - REMOVAL OF OVARY(S) 2009 Oophorectomy right, still has left - REMOVAL OF OVARY(S) 01/2015 left removed - TOTAL ABDOM HYSTERECTOMY 08/31/06 Hysterectomy, [facility] Allergies: ALLERGIES Allergen Reactions - Penicillins Rash - Cephalexin Itching - Chlorhexidine Rash Skin rash - Asa [Salicylates] Other: See Comments ulcers - Contrast Dye [Iodin* Shortness of Breath - Flagyl [Metronidazo* Shortness of Breath - Ibuprofen GI Upset - Prednisone Other: See Comments makes agitated and mean Medications: diphenhydrAMINE (BENADRYL) 25 mg capsule Take 50 mg by mouth every 6 hours as needed. estradiol (ESTRACE) 2 mg tablet Take 2 mg by mouth once kehinde y. pantoprazole DR (PROTONIX) 40 mg tablet Take 1 tablet by nick th daily before breakfast. Take on empty stomach, 1/2 hr before meal. sertraline (ZOLOFT) 100 mg tablet Take 1 tablet by mouth onc e daily. QUEtiapine (SEROQUEL) 100 mg tablet Take 1 tablet by mouth o nce daily. albuterol HFA (VENTOLIN HFA) 90 mcg/actuation inhaler Inhale 2 Puffs as instructed every 4 hours as needed. topiramate (TOPAMAX) 50 mg tablet Take 1 tablet by mouth twi ce daily. triamcinolone (KENALOG IN ORABASE) 0.1 % paste Apply to affe cted areas 2-3 times a day. promethazine (PHENERGAN) 25 mg tablet Take 1 tablet by mouth every 6 hours as needed. Benzonatate 200 mg capsule Take 1 capsule by mouth three edel es daily as needed. FAMILY HISTORY Problem Relation Age of Onset - Diabetes Maternal Grandmother - Diabetes Maternal Grandfather - Lipids Maternal Grandfather - Stroke Maternal Grandfather - Coronary Artery Disease Maternal Grandfather - Cataract Maternal Grandfather - Pancreatic Cancer Maternal Grandfather - Diabetes Paternal Grandmother - Diabetes Paternal Grandfather - Coronary Artery Disease Paternal Grandfather - Thyroid Mother unsure of details - Arthritis Mother fibromyalgia - Blood Disease Mother blood clots, unsure of details (aorta?) - Breast Cancer Maternal Aunt - Lipids Maternal Uncle - Coronary Artery Disease Maternal Uncle - other (ovarian ca) Other maternal cousin Employer And Job Title: None on file Years Of Education Completed: 12 years Marital Status: with 2 children Social History Tobacco Use - Smoking status: Former Smoker Packs/day: 0.50 Years: 3.00 Pack years: 1.50 Types: Cigarettes Quit date: 01/12/2017 Years since quittin.2 - Smokeless tobacco: Never Used - Tobacco comment: Approx. 3 cigarettes daily-1 pack every w [place] Substance Use Topics - Alcohol use: Yes Comment: Occasional - Drug use: Never Review of Systems: Review of Systems Constitutional: Positive for appetite change. HENT: Positive for trouble swallowing. Respiratory: Positive for shortness of breath. Gastrointestinal: Positive for abdominal distention, abdomin al pain, blood in stool, diarrhea, nausea and vomiting. Heartburn and gas. All other systems reviewed and are negative. Where do you currently reside? [place]ependently Are you taking any blood thinners? No Physical Examination: Physical Exam Constitutional: She is oriented to person, place, and time a nd well-developed, well-nourished, and in no distress. HENT: Head: Normocephalic. Eyes: Pupils are equal, round, and reactive to light. No scl eral icterus. Neck: Neck supple. No JVD present. No tracheal deviation pre sent. No thyromegaly present. Cardiovascular: Normal rate and regular rhythm. Pulmonary/Chest: Effort normal and breath sounds normal. Abdominal: Soft. Bowel sounds are normal. She exhibits no di stension (soft). There is no abdominal tenderness. There is no reboun d and no guarding. Musculoskeletal: General: No edema. Lymphadenopathy: She has no cervical adenopathy. Neurological: She is alert and oriented to person, place, an d time. Skin: No rash noted. No erythema. Psychiatric: Affect normal. Assessment/Plan: MS Mcgregor is here for evaluation of multiple GI complaints. Pancreatitis - h/o abdominal pain. Lipase elevated as above (upper limit of normal 60). CT abdomen unremarkable. Mildly elevated TGs but unlikely to be the reason. Has h/o cholecystectomy > 10 years ago. No rmal LFTs. Other risk factor - smoking. Denies alcohol. Assess CBD, marge ck Igg levels. If negative/normal will consider EUS. GERD/dysphagia - long standing. Was on good control with Pro tonix in the past but worsened since few weeks. Dysphagia - r/o peptic st ricture, Schatzkis' ring, hiatal hernia, EoE vs other. Nausea/vomiting - r/o gastritis, PUD. SIBO vs other Abdominal pain/loose stools/bloating/passage of foul smellin g flatus and intermittent blood in stool. R/o IBS, celiac disease, SIBO. Blood in stool attributes to hemorrhoids - r/o proctitis, polyps. - schedule EGD +/- dilation, +/- bx for EoE, bx for H pylori - schedule colonoscopy with random biopsies. - check celiac serology - empiric treatment for SIBO with Flagyl 500mg po TID X 7 da ys - advised not to drink any alcohol due to reaction while on flagyl - start Bentyl 10mg po TID - start Align 4mg po daily. - continue Protonix at current doses. - schedule US RUQ to assess bile duct system. - if recurrent pancreatitis will need EUS - check IGG levels and subclass. - Antireflux measures discussed in detail - raising head end of the bed to 4 to 6 inches. - avoiding meals with in 3 hours of bedtime. - weight loss. - Avoid wearing tight fitting garments around waist. - discussed the role of specific food in causing/worsening G ERD like chocolates, alcohol, tomatoes, bananas, onions, coffee, etc is controversial and if certain food worsens GERD, avoid or leslie it intake. RTC 3 months/PRN. Gabby ga on 2020-04-26 CNOV Office Visit (GSTNOR) Normal 04-26- 20 [facility] SALLY MCGREGOR ([id number]) 1980 [facility] Date Time Provider Department ([id number]) 04/26/20 3:00 PM JOHNNY WINN During your visit today, we recorded the following informati on about you: Pulse Blood pressure Weight Height 84/minute 140/90 91.2 kg 1.549 m Johnny Winn MD 04/26/2020 3:29 PM Signed Sally Jeana Mcgregor is a 39 year old female who presents for P ancreatitis, Abdominal Pain, and Nausea AND Vomiting. HPI: Ms Mcgregor is referred her for evaluation of an episode of p ancreatitis although she mentions multitude of GI complaints today. Reports nausea, vomiting and significant bloating. Abdominal cramps + Gets worse after a BM. She is getting 3 BMs/day. Has noted occasional blood in stool of long duration - attri butes to hemorrhoids. Passage of foul smelling gas. Excessive burping. Heartburn + Takes Protonix 40mg po daily at 9am that was helping w ith GERD but since few week after her above mentioned symptoms started protonix not helping much. Also mentions difficulty in swallowing. Had choking episodes. No prior EGD/colonoscopy. Of note she presented to the ED in [place] in January 2020 for abdominal pain of [address] abdomen was essentially unremarkable includ ing pancreas. Was found to have lipase of 193 on 02/15/2020. Amylase normal. Hepatic function panel. Has h/o cholecystectomy in 1998. Denies NSAIDs. Smoking - quit 3 months ago. 1 pack/day X 15 years. Etoh - denies. Drugs - denies. Record Review: [facility] records reviewed PAST MEDICAL HISTORY Diagnosis Date - Allergic rhinitis, cause unspecified 05/17/2008 Spring and summer - Benign liver cyst 05/24/2010 CT scan at [facility] 11/2009 and 04/2010 showe 4 mm increase in size . No pain. No elevated LFTs on 03/11/2010. - Calculus of kidney 05/17/[address] Nicolas: Hospitalized age 20, a nd again later -- no procedures so far ([facility], most, 1995 [facility]) - Dysmenorrhea - History of blood transfusion - Impaired fasting glucose 05/17/2008 Sugar 104 fasting, 04/21 - MIGRAINE 05/17/2008 Has used imitrex with good response; Keeps Vicodin on hand w hen needed; - Ovarian cyst 07/15/2012 - Pancreatitis - Smoker 05/17/2008 Started age 26, 1/2 a PPD PAST SURGICAL HISTORY Procedure Laterality Date - CHOLECYSTECTOMY HX - DANDC, DIAG AND/OR THERAPEUTIC - LIGATE FALLOPIAN TUBE - PAST SURGICAL HISTORY OF uterine ablation - PAST SURGICAL HISTORY OF cyst removal - REMOVAL OF OVARY(S) 2009 Oophorectomy right, still has left - REMOVAL OF OVARY(S) 01/2015 left removed - TOTAL ABDOM HYSTERECTOMY 08/31/06 Hysterectomy, [facility] Allergies: ALLERGIES Allergen Reactions - Penicillins Rash - Cephalexin Itching - Chlorhexidine Rash Skin rash - Asa [Salicylates] Other: See Comments ulcers - Contrast Dye [Iodin* Shortness of Breath - Flagyl [Metronidazo* Shortness of Breath - Ibuprofen GI Upset - Prednisone Other: See Comments makes agitated and mean Medications: diphenhydrAMINE (BENADRYL) 25 mg capsule Take 50 mg by mouth every 6 hours as needed. estradiol (ESTRACE) 2 mg tablet Take 2 mg by mouth once kehinde y. pantoprazole DR (PROTONIX) 40 mg tablet Take 1 tablet by m outh daily before breakfast. Take on empty stomach, 1/2 hr before meal. sertraline (ZOLOFT) 100 mg tablet Take 1 tablet by mouth onc e daily. QUEtiapine (SEROQUEL) 100 mg tablet Take 1 tablet by mouth o nce daily. albuterol HFA (VENTOLIN HFA) 90 mcg/actuation inhaler Inhale 2 Puffs as instructed every 4 hours as needed. topiramate (TOPAMAX) 50 mg tablet Take 1 tablet by mouth twi ce daily. triamcinolone (KENALOG IN ORABASE) 0.1 % paste Apply to affe cted areas 2-3 times a day. promethazine (PHENERGAN) 25 mg tablet Take 1 tab let by mouth every 6 hours as needed. Benzonatate 200 mg capsule T maninder 1 capsule by mouth three times daily as needed. FAMILY HISTORY Problem Relation Age of Onset - Diabetes Maternal Grandmother - Diabetes Maternal Grandfather - Lipids Maternal Grandfather - Stroke Maternal Grandfather - Coronary Artery Disease Maternal Grandfather - Cataract Maternal Grandfather - Pancreatic Cancer Maternal Grandfather - Diabetes Paternal Grandmother - Diabetes Paternal Grandfather - Coronary Artery Disease Paternal Grandfather - Thyroid Mother unsure of details - Arthritis Mother fibromyalgia - Blood Disease Mother blood clots, unsure of details (aorta?) - Breast Cancer Maternal Aunt - Lipids Maternal Uncle - Coronary Artery Disease Maternal Uncle - other (ovarian ca) Other maternal cousin Employer And Job Title: None on file Years Of Education Completed: 12 years Marital Status: with 2 children Social History Tobacco Use - Smoking status: Former Smoker Packs/day: 0.50 Years: 3.00 Pack years: 1.50 Types: Cigarettes Quit date: 01/12/2017 Years since quittin.2 - Smokeless tobacco: Never Used - Tobacco comment: Approx. 3 cigarettes daily-1 pack every w [place] Substance Use Topics - Alcohol use: Yes Comment: Occasional - Drug use: Never Review of Systems: Review of Systems Constitutional: Positive for appetite change. HENT: Positive for trouble swallowing. Respiratory: Positive for shortness of breath. Gastrointestinal: Positive for abdominal distent ion, abdominal pain, blood in stool, diarrhea, nausea and vomiting. Heartburn and gas. All other systems reviewed and are negative. Where do you currently reside? Independently Are you taking any blood thinners? No Physical Examination: Physical Exam Constitutional: She is oriented to perso n, place, and time and well-developed, well-nourished, and in no distress. HENT: Head: Normocephalic. Eyes: Pupils are equal, round, and reactive to light. No scl eral icterus. Neck: Neck supple. No JVD present. No tracheal deviation pre sent. No thyromegaly present. Cardiovascular: Normal rate and regular rhythm. Pulmonary/Chest: Effort normal and breath sounds normal. Abdominal: Soft. Bowel sounds are normal. She exhibits no distension (soft). There is no abdominal tenderness. There is no rebound and no guarding. Musculoskeletal: General: No edema. Lymphadenopathy: She has no cervical adenopathy. Neurological: She is alert and oriented to person, place, an d time. Skin: No rash noted. No erythema. Psychiatric: Affect normal. Assessment/Plan: MS Mcgregor is here for evaluation of multiple GI complaints. Pancreatitis - h/o abdominal pain. Lipase elevated as abov e (upper limit of normal 60). CT abdomen unrem arkable. Mildly elevated TGs but unlikely to be the reason. Has h/o cholecystectomy > 10 yea rs ago. Normal LFTs. Other risk factor - smoking. Denies alcohol. Assess CBD, check Igg levels. I f negative/normal will consider EUS. GERD/dysphagia - long standing. Was on good cont rol with Protonix in the past but worsened since few weeks. Dysphagia - r/o peptic strictu re, Schatzkis' ring, hiatal hernia, EoE vs other. Nausea/vomiting - r/o gastritis, PUD. SIBO vs other Abdominal pain/loose stools/bloating/passage of foul smellin g flatus and intermittent blood in stool. R/o IBS, celiac disease, SIBO. Blood in stool attributes to hemorrhoids - r/o proctitis, polyps. - schedule EGD +/- dilation, +/- bx for EoE, bx for H pylori - schedule colonoscopy with random biopsies. - check celiac serology - empiric treatment for SIBO with Flagyl 500mg po TID X 7 days - advised not to drink any alcohol due to reaction while on flagyl - start Bentyl 10mg po TID - start Align 4mg po daily. - continue Protonix at current doses. - schedule US RUQ to assess bile duct system. - if recurrent pancreatitis will need EUS - check IGG levels and subclass. - Antireflux measures discussed in detail - raising head end of the bed to 4 to 6 inches. - avoiding meals with in 3 hours of bedtime. - weight loss. - Avoid wearing tight fitting garments around waist. - discussed the role of specific food in causing/worsening G ERD like chocolates, alcohol, tomatoes, bananas, onions, coffee , etc is controversial and if certain food worsens GERD, avoid or limit intake. RTC 3 months/PRN. Gabby Winn MD 04/26/2020 3:23 PM Addendum Bowel Preparation Instructions for: Golytely, Nulytely, Tril yte or Colyte (polyethylene glycol 3350 and electrolytes) IF YOU DO NOT FOLLOW THESE DIRECTIONS, YOUR COLONOSCOPY WILL BE CANCELLED. Guzman Instructions: ? Your bowel must be empty so that your doctor can clearly view your colon. Follow all of the instructions in this handout EXACTLY as they are written. ? Do NOT eat any solid food the ENTIRE d ay before your colonoscopy. Drink only clear liquids. ? Buy your bowel preparation at least 5 days before your col onoscopy. TRANSPORTATION on the Day of Your Exam A responsible person MUST be present with you at Check In pr ior to your colonoscopy and REMAIN in the endoscopy area until you are discharged. You are NOT ALLOWED to drive, take a taxi or bus , or leave the Endoscopy Center ALONE. If you do not have a responsible flatbed company driver (family member or friend) with you to take you home, your exam cannot be done with sedation and will be cancelled. Please bring a list of all of your curre nt medications, including any Over-the Counter medications with you. Medications If you take insulin, diabetic medications or blood thi nners such as Coumadin (warfarin), Plavix (clopidogrel), Ticlid (ticlop idine hydrochloride), Agrylin (anagrelide), Xarelto (Rivaroxaban), Pra caden (Dabigatran), Eliquis (Apixaban), and Effient (Prasugrel). You MUST call the docto rs who orders those medicines for instructions on altering the dosage before your colonosc opy. All other medications should be taken the day of the exam with a sip of water including ASPIRIN. Five (5) Days Before Your Colonoscopy ? Do NOT take medicines that stop diarrhea - such as I modium, Kaopectate, or Pepto Bismol. ? Do NOT take fiber supplements - such as Metamucil, Citruce l, or Perdiem. ? Do NOT take products that contain iron - such as mul ti-vitamins (the label lists what is in the products). ? Do NOT take Vitamin E. Buy the prescription bowel preparation solution at your [facility] pharmacy or drugstore pharmacy. 08/2019 Bowel Preparation Instructions for: Golytely, Nulytely, Tril yte or Colyte (polyethylene glycol 3350 and electrolytes) Three (3) Days Before Your Colonoscopy ? Do NOT eat high-fiber food s - such as popcorn, beans, seeds (flax, sunflower, quinoa), multigrain bread, nuts, salad/vegetables, or fresh and dried fruit. One (1) Day Before Your Colonoscopy ? Only drink clear liquids the ENTIRE DAY before your colonoscopy. Do NOT eat any solid foods. Drink at least 8 ounces of clear liquids ev paolo hour after waking up. The clear liquids you can drink include: Clear Liquid (NO RED LIQUIDS) DO NOT DRINK Gatorade, Pedialyte or Powerade Clear broth or bouillon Coffee or tea (no milk or non-dairy creamer) Carbonated and non-carbonated soft drinks Tucker-Aid or other fruit flavored drinks Strained fruit juices (no pulp) Jell-O, popsicles, hard candy Water Alcohol Milk or non-dairy creamers Noodles or vegetables in soup Juice with pulp Liquid you cannot see through The bowel preparation solution will be consumed in two parts . Mix the solution the evening before your colonoscopy and r efrigerate before drinking. You may add the flavor pack th at came with the bowel preparation. Do NOT add ice, sugar or any other flavorings to the solution. Part 1 ? At 6:00 PM - Evening before your colonoscopy ? Drink an 8-oz glass of bowel preparation every 10 mi nutes for a total of 8 glasses. ? You may continue to drink clear liquids until midnight. Part 2 ? On the day of your colonoscopy you may drink clear l iquids up to (three) 3 hours before your procedure. ? 4 hours before your colonoscopy ? Drink an 8-oz glass of bowel preparation every 10 mi nutes for a total of 8 glasses. ? Fifteen (15) minutes later, drink an 8-oz glass of clear liquids every 15 minutes for a total of 2 glasses. ? You may continue to drink clear liquids up to (three) 3 hours before your exam. 2 08/2019 Antireflux measures discussed in detail - raising head end of the bed to 4 to 6 inches. - avoiding meals with in 3 hours of bedtime. - weight loss. - Avoid wearing tight fitting garments around waist. - discussed the role of specific food in causing/worsening G ERD like chocolates, alcohol, tomatoes, bananas, onions, coffee , etc is controversial and if certain food worsens GERD, avoid or limit intake. Referring Provider: MARCELINO MEJIA [[id number]] Allergies As of Date: 04/26/2020 Noted Allergy Reaction PENICILLINS 12/07/2009 2 - Rash CEPHALEXIN 10/20/2019 9 - Itching CHLORHEXIDINE 10/29/2016 2 - Rash Comments: Skin rash ASA (SALICYLATES) 01/27/2011 14 - Other: See Comments Comments: ulcers CONTRAST DYE (IODINE) 05/17/2008 12 - Shortness of Breath IBUPROFEN 06/18/2016 8 - GI Upset PREDNISONE 06/18/2016 14 - Other: See Comments Comments: makes agitated and mean Date Reviewed: 04/26/2020 Reviewed by: Johnny Winn - Fully Assessed Reason for Visit: Pancreatitis [581] Cmt: CT AND Labs Abdominal Pain [1] Nausea AND Vomiting [237] Reason For Visit History Recorded Primary Visit Diagnosis:Generalized abdominal pain [R10.84] Other Visit Diagnoses:Loose stools [R19.5] Dyspepsia [R10.13] Gastroesophageal reflux disease, esophagitis presence not specified [K21.9] Other dysphagia [R13.19] History of acute pancreatitis [Z87.19] Bloating [R14.0] Nausea and vomiting, intractability of vomiting not specified, unspecified vomiting type [R11.2] Order(s):peg 3350-Electrolytes (GOLYTELY) 236-22.74-6.74 -5. 86 gram suspensionTake 4,000 mL by mouth one time only for 1 dose. R efer to printed prep instructions from your doctor.Disp: 1 BottleRfl : 0 INSERT IV ([place]) [7624054] Order #: [id number]: 1 FUTURE IV DISCONTINUE [2680789] Order #: [id number]: 1 FUTURE INSERT IV ([place]) [0606553] Order #: [id number]: 1 EGD [1375679] Order #: [id number] FUTURE COLONOSCOPY - DIAGNOSTIC [7108586] Order #: [id number] FUTUR E CELIAC DISEASE PANEL [4993635] Order #: [id number] FUTURE IGG SUBCLASSES BLD [SQIGGSUB] Order #: [id number] FUTURE US ABD RT UPPER QUADRANT [2652612] Order #: [id number] FUTUR E metroNIDAZOLE (FLAGYL) 500 mg tabletTake 1 tablet by mouth t hree times daily for 7 days.Disp: 21 tabletRfl: 0 dicyclomine (BENTYL) 10 mg capsuleTake 1 capsule by mouth be fore meals and at bedtime. Use as directedDisp: 90 capsuleRfl: 1 Bifidobacterium Infantis (ALIGN) 4 mg capTake 1 capsule by m out once daily.Disp: 30 capsuleRfl: 2 PRE-PROCEDURE AND PRE-OPERATIVE COVID [SQPOCOVD] Order #: [id number] FUTURE Prescriptions as of 04/26/2020 Sig: DIPHENHYDRAMINE 25 MG CAPSULE Take 50 mg by mouth every 6 h* ESTRADIOL 2 MG TABLET Take 2 mg by mouth once daily. PANTOPRAZOLE 40 MG TABLET,DEL* Take 1 tablet by mouth daily * SERTRALINE 100 MG TABLET Take 1 tablet by mouth once d* QUETIAPINE 100 MG TABLET Take 1 tablet by mouth once d* ALBUTEROL SULFATE HFA 90 MCG/* Inhale 2 Puffs as instructed * PEG 3350-ELECTROLYTES 236 GRA* Take 4,000 mL by mouth one ti * METRONIDAZOLE 500 MG TABLET Take 1 tablet by mouth three * DICYCLOMINE 10 MG CAPSULE Take 1 capsule by mouth befor* ALIGN 4 MG CAPSULE Take 1 capsule by mouth once * Problem List As Of Date 04/26/2020 Noted Resolved Routine gynecological examination [Z01.419] 05/17/2008 Class: Chronic More... More... Family history of diabetes mellitus [Z83.3] 05/17/2008 More... Calculus of kidney [N20.0] 05/17/2008 More... Allergic rhinitis, cause unspecified [J30.9] 05/17/2008 More... Migraine without aura [G43.009] 05/17/2008 More... Smoker [F17.200] 05/17/2008 More... Impaired fasting glucose [R73.01] 05/17/2008 More... Benign liver cyst [K76.89] 05/24/2010 Class: Chronic More... Ovarian cyst [N83.209] 07/15/2012 Generalized anxiety disorder [F41.1] 03/31/2016 Reactive depression [F32.9] 03/31/2016 More... Adjustment insomnia [F51.02] 03/31/2016 Encounter for screening for cardiovascular diso*03/31/2016 Bilateral low back pain without sciatica [M54.5]06/18/2016 More... Pain in left hip [M25.552] 06/18/2016 Greater trochanteric bursitis [M70.60] 06/18/2016 Hydronephrosis of left kidney [N13.30] 02/05/2017 Hydroureter on left [N13.4] 02/05/2017 Right facial numbness [R20.0] 02/23/2017 Right upper extremity numbness [R20.0] 02/23/2017 Numbness of right lower extremity [R20.0] 02/23/2017 Weakness of right upper extremity [R29.898] 02/23/2017 Weakness of right lower extremity [R29.898] 02/23/2017 Vision blurred [H53.8] 02/23/2017 Lumbar spine pain [M54.5] 02/23/2017 Cervical spine pain [M54.2] 02/23/2017 Abnormal MRI, lumbar spine [R93.7] 02/23/2017 Hydroureter, left [N13.4] 03/30/2017 Lung nodules [R91.8] 01/22/2020 More... Other instructions from your clinician: Bowel Preparation Instructions for: Golytely, Nulytely, Tril yte or Colyte (polyethylene glycol 3350 and electrolytes) IF YOU DO NOT FOLLOW THESE DIRECTIONS, YOUR COLONOSCOPY WILL BE CANCELLED. Guzman Instructions: ? Your bowel must be empty so that your doctor can clearly v iew your colon. Follow all of the instructions in this handout EXACTL Y as they are written. ? Do NOT eat any solid food the ENTIRE day before your colon oscopy. Drink only clear liquids. ? Buy your bowel preparation at least 5 days before your col onoscopy. TRANSPORTATION on the Day of Your Exam A responsible person MUST be present with you at Check In pr ior to your colonoscopy and REMAIN in the endoscopy area until you are d ischarged. You are NOT ALLOWED to drive, take a taxi or bus, or leave [facility] ALONE. If you do not have a responsible flatbed company driver (famil y member or friend) with you to take you home, your exam cannot be done with sedation and will be cancelled. Please bring a list of all of your current medications, incl uding any Over-the Counter medications with you. Medications If you take insulin, diabetic medications or blood thinners such as Coumadin (warfarin), Plavix (clopidogrel), Ticlid (ticlopidi ne hydrochloride), Agrylin (anagrelide), Xarelto (Rivaroxaban), Pradaxa (Dabigatran), Eliquis (Apixaban), and Effient (Prasugrel). Y ou MUST call the doctors who orders those medicines for instructions on a ltering the dosage before your colonoscopy. All other medications should be taken the day of the exam wi th a sip of water including ASPIRIN. Five (5) Days Before Your Colonoscopy ? Do NOT take medicines that stop diarrhea - such as Imodium , Kaopectate, or Pepto Bismol. ? Do NOT take fiber supplements - such as Metamucil, Citruce l, or Perdiem. ? Do NOT take products that contain iron - such as multi-vit amins (the label lists what is in the products). ? Do NOT take Vitamin E. Buy the prescription bowel preparation solution at your [facility] pharmacy or drugstore pharmacy. 08/2019 Bowel Preparation Instructions for: Golytely, Nulytely, Tril yte or Colyte (polyethylene glycol 3350 and electrolytes) Three (3) Days Before Your Colonoscopy ? Do NOT eat high-fiber foods - such as popcorn, beans, seed s (flax, sunflower, quinoa), multigrain bread, nuts, salad/vegetables , or fresh and dried fruit. One (1) Day Before Your Colonoscopy ? Only drink clear liquids the ENTIRE DAY before your colono scopy. Do NOT eat any solid foods. Drink at least 8 ounces of clear liquid s every hour after waking up. The clear liquids you can drink include: Clear Liquid (NO RED LIQUIDS) DO NOT DRINK Gatorade, Pedialyte or Powerade Clear broth or bouillon Coffee or tea (no milk or non-dairy creamer) Carbonated and non-carbonated soft drinks Tucker-Aid or other fruit flavored drinks Strained fruit juices (no pulp) Jell-O, popsicles, hard candy Water Alcohol Milk or non-dairy creamers Noodles or vegetables in soup Juice with pulp Liquid you cannot see through The bowel preparation solution will be consumed in two parts . Mix the solution the evening before your colonoscopy and ref rigerate before drinking. You may add the flavor pack that came with the bowel preparation. Do NOT add ice, sugar or any other flavorings t o the solution. Part 1 ? At 6:00 PM - Evening before your colonoscopy ? Drink an 8-oz glass of bowel preparation every 10 minutes for a total of 8 glasses. ? You may continue to drink clear liquids until midnight. Part 2 ? On the day of your colonoscopy you may drink clear liquids up to (three) 3 hours before your procedure. ? 4 hours before your colonoscopy ? Drink an 8-oz glass of bowel preparation every 10 minutes for a total of 8 glasses. ? Fifteen (15) minutes later, drink an 8-oz glass of clear l iquids every 15 minutes for a total of 2 glasses. ? You may continue to drink clear liquids up to (three) 3 ho urs before your exam. 2 08/2019 Antireflux measures discussed in detail - raising head end of the bed to 4 to 6 inches. - avoiding meals with in 3 hours of bedtime. - weight loss. - Avoid wearing tight fitting garments around waist. - discussed the role of specific food in causing/worsening G ERD like chocolates, alcohol, tomatoes, bananas, onions, coffee, etc is controversial and if certain food worsens GERD, avoid or leslie it intake. Prescriptions ordered this encounter Disp Refills Start End PEG 3350-ELECTROLYTES 236 GRAM-22.74* 1 Eric* 0 04/26/2020 Route: ORAL Sig: Take 4,000 mL by mouth one time only for 1 dose. Refe r to printed prep instructions from your doctor. METRONIDAZOLE 500 MG TABLET 21 t* 0 04/26/2020 05/03/2020 Route: ORAL Sig: Take 1 tablet by mouth three times daily for 7 days. DICYCLOMINE 10 MG CAPSULE 90 c* 1 04/26/2020 Route: ORAL Sig: Take 1 capsule by mouth before meals and at bedtime. Us e as directed ALIGN 4 MG CAPSULE 30 c* 2 04/26/2020 07/25/2020 Route: ORAL Sig: Take 1 capsule by mouth once daily. Medications Discontinued During This Encounter Prescriptions - Benzonatate 200 mg capsule (Discontinued) Reported on 04/26/2020 - promethazine (PHENERGAN) 25 mg tablet (Discontinued) Reported on 04/26/2020 - topiramate (TOPAMAX) 50 mg tablet (Discontinued) Reported on 04/26/2020 - triamcinolone (KENALOG IN ORABASE) 0.1 % paste (Discontinu ed) Reported on 04/26/2020 Disposition: Return in about 3 months (around 07/27/2020), o r if symptoms worsen or fail to improve. Follow-up and Disposition History Recorded Encounter Status:Closed by JOHNNY WINN MD on 04/26/20 cnco on 2020-04-26 CNCO Letter Text Normal 04-26-2020 [facility] ([id number]) cnpn on 2020-04-19 CNPN Telephone (FAMPWS) Normal 04-19-2020 [facility] SALLY MCGREGOR ([id number]) 1980 [facility] Date Time Provider Department ([id number]) [facility]/19[facility] During your visit today, we recorded the following informati on about you: Christopher Carcamo RN 04/19/2020 10:49 AM Signed Faxed GI referral and demographics to [facility], per patient request. . Allergies As of Date: 04/19/2020 Noted Allergy Reaction PENICILLINS 12/07/2009 2 - Rash ASA (SALICYLATES) 01/27/2011 14 - Other: See Comments Comments: ulcers CONTRAST DYE (IODINE) 05/17/2008 12 - Shortness of Breath FLAGYL (METRONIDAZOLE HCL) 03/11/2010 12 - Shortness of [place] th IBUPROFEN 06/18/2016 8 - GI Upset PREDNISONE 06/18/2016 14 - Other: See Comments Comments: makes agitated and mean Date Reviewed: 02/23/2020 Reviewed by: Marcelino Mejia - Fully Assessed Reason for Visit: Faxed to [facility] [Other] Prescriptions as of 04/19/2020 Sig: TOPIRAMATE 50 MG TABLET Take 1 tablet by mouth twice * PANTOPRAZOLE 40 MG TABLET,DEL* Take 1 tablet by mouth daily * SERTRALINE 100 MG TABLET Take 1 tablet by mouth once d* QUETIAPINE 100 MG TABLET Take 1 tablet by mouth once d* TRIAMCINOLONE ACETONIDE 0.1 %* Apply to affected areas 2-3 t * PROMETHAZINE 25 MG TABLET Take 1 tablet by mouth every * BENZONATATE 200 MG CAPSULE Take 1 capsule by mouth three* ALBUTEROL SULFATE HFA 90 MCG/* Inhale 2 Puffs as instructed * Problem List As Of Date 04/19/2020 Noted Resolved Routine gynecological examination [Z01.419] 05/17/2008 Class: Chronic More... More... Family history of diabetes mellitus [Z83.3] 05/17/2008 More... Calculus of kidney [N20.0] 05/17/2008 More... Allergic rhinitis, cause unspecified [J30.9] 05/17/2008 More... Migraine without aura [G43.009] 05/17/2008 More... Smoker [F17.200] 05/17/2008 More... Impaired fasting glucose [R73.01] 05/17/2008 More... Benign liver cyst [K76.89] 05/24/2010 Class: Chronic More... Ovarian cyst [N83.209] 07/15/2012 Generalized anxiety disorder [F41.1] 03/31/2016 Reactive depression [F32.9] 03/31/2016 More... Adjustment insomnia [F51.02] 03/31/2016 Encounter for screening for cardiovascular diso*03/31/2016 Bilateral low back pain without sciatica [M54.5]06/18/2016 More... Pain in left hip [M25.552] 06/18/2016 Greater trochanteric bursitis [M70.60] 06/18/2016 Hydronephrosis of left kidney [N13.30] 02/05/2017 Hydroureter on left [N13.4] 02/05/2017 Right facial numbness [R20.0] 02/23/2017 Right upper extremity numbness [R20.0] 02/23/2017 Numbness of right lower extremity [R20.0] 02/23/2017 Weakness of right upper extremity [R29.898] 02/23/2017 Weakness of right lower extremity [R29.898] 02/23/2017 Vision blurred [H53.8] 02/23/2017 Lumbar spine pain [M54.5] 02/23/2017 Cervical spine pain [M54.2] 02/23/2017 Abnormal MRI, lumbar spine [R93.7] 02/23/2017 Hydroureter, left [N13.4] 03/30/2017 Lung nodules [R91.8] 01/22/2020 More... Encounter Status:Closed by Christopher CARCAMO RN on 04/19/20 cnpn on 2020-04-18 CNPN Telephone (FAMPWS) Normal 04-18-2020 [facility] SALLY MCGREGOR ([id number]) 1980 [facility] Date Time Provider Department ([id number]) 04/18/20 [facility] During your visit today, we recorded the following informati on about you: Yvette Huffman RN 04/18/2020 2:01 PM Signed Pt called, verified by name and birthdate. Pt wants to know if she can see a GI doctor. Reviewed pt's chart and she has a GI con sult with GI group in [place]. Pt verbalized understanding, states she will call to make ap t Yvette Huffman RN Allergies As of Date: 04/18/2020 Noted Allergy Reaction PENICILLINS 12/07/2009 2 - Rash ASA (SALICYLATES) 01/27/2011 14 - Other: See Comments Comments: ulcers CONTRAST DYE (IODINE) 05/17/2008 12 - Shortness of Breath FLAGYL (METRONIDAZOLE HCL) 03/11/2010 12 - Shortness of [place] th IBUPROFEN 06/18/2016 8 - GI Upset PREDNISONE 06/18/2016 14 - Other: See Comments Comments: makes agitated and mean Date Reviewed: 02/23/2020 Reviewed by: Marcelino Mejia - Fully Assessed Reason for Visit: Patient Question [6767] Prescriptions as of 04/18/2020 Sig: TOPIRAMATE 50 MG TABLET Take 1 tablet by mouth twice * PANTOPRAZOLE 40 MG TABLET,DEL* Take 1 tablet by mouth daily * SERTRALINE 100 MG TABLET Take 1 tablet by mouth once d* QUETIAPINE 100 MG TABLET Take 1 tablet by mouth once d* TRIAMCINOLONE ACETONIDE 0.1 %* Apply to affected areas 2-3 t * PROMETHAZINE 25 MG TABLET Take 1 tablet by mouth every * BENZONATATE 200 MG CAPSULE Take 1 capsule by mouth three* ALBUTEROL SULFATE HFA 90 MCG/* Inhale 2 Puffs as instructed * Problem List As Of Date 04/18/2020 Noted Resolved Routine gynecological examination [Z01.419] 05/17/2008 Class: Chronic More... More... Family history of diabetes mellitus [Z83.3] 05/17/2008 More... Calculus of kidney [N20.0] 05/17/2008 More... Allergic rhinitis, cause unspecified [J30.9] 05/17/2008 More... Migraine without aura [G43.009] 05/17/2008 More... Smoker [F17.200] 05/17/2008 More... Impaired fasting glucose [R73.01] 05/17/2008 More... Benign liver cyst [K76.89] 05/24/2010 Class: Chronic More... Ovarian cyst [N83.209] 07/15/2012 Generalized anxiety disorder [F41.1] 03/31/2016 Reactive depression [F32.9] 03/31/2016 More... Adjustment insomnia [F51.02] 03/31/2016 Encounter for screening for cardiovascular diso*03/31/2016 Bilateral low back pain without sciatica [M54.5]06/18/2016 More... Pain in left hip [M25.552] 06/18/2016 Greater trochanteric bursitis [M70.60] 06/18/2016 Hydronephrosis of left kidney [N13.30] 02/05/2017 Hydroureter on left [N13.4] 02/05/2017 Right facial numbness [R20.0] 02/23/2017 Right upper extremity numbness [R20.0] 02/23/2017 Numbness of right lower extremity [R20.0] 02/23/2017 Weakness of right upper extremity [R29.898] 02/23/2017 Weakness of right lower extremity [R29.898] 02/23/2017 Vision blurred [H53.8] 02/23/2017 Lumbar spine pain [M54.5] 02/23/2017 Cervical spine pain [M54.2] 02/23/2017 Abnormal MRI, lumbar spine [R93.7] 02/23/2017 Hydroureter, left [N13.4] 03/30/2017 Lung nodules [R91.8] 01/22/2020 More... Encounter Status:Closed by YVETTE HUFFMAN RN on 04/18/20 cnpn on 2020-04-16 CNPN Telephone (FAMSkylerWS) Normal 04-16-2020 [facility] SALLY MCGREGOR ([id number]) 1980 [facility] Date Time Provider Department ([id number]) 04/16/20 [facility] During your visit today, we recorded the following informati on about you: Edwina Tatum EXERCISE PHYSIOLOGIST CERTIFIED 04/16/2020 11:38 AM Signed Pt calls to report she went to [facility] ER 04/12. Pt reports she went because she was having bloating and stomach pain which she thought was pancreatitis. Pt reports they ran labs and told her it wasn't pancreatitis. Telma alejandra gave her a bentyl and zofran and sent her home. Pt reports she is still really bloated. Pt reports she eats and feels nauseous and has vomited a couple of times. Pt reports she is taking protonix every morning as prescribed but that is not he lping. Pt reports she has had diarrhea off and on and is not constipated. Pt reports unable to do a virtual visit because of no data on phone. [facility] appts not available this week for any provider. Please review and advise. Edwina Tatum LPN 04/17/2020 10:28 AM Signed Pt calls back to check on status of message. Pt report s she is still bloated and stomach feels hard. Pt reports every time she eats she t hrows up. Edwina Huffman RN 04/17/2020 3:23 PM Signed Pt called, verified by name and birthdate. Pt wants to know if PCP responded to below message. Informed pt PCP has been with pt's today and not seen her message. Pt verbalized understanding. Please advise Yvette Sanders Ma 04/17/2020 3:30 PM Signed If review past phone calls all for same issue pcp has referred since February to gastro. Patient always has excuse/call back to heri tony. Spoke to patient and advised needs to make appointment to be seen she asked if number was available and I transferred her to schedule Branden Sanders Ma Allergies As of Date: 04/16/2020 Noted Allergy Reaction PENICILLINS 12/07/2009 2 - Rash ASA (SALICYLATES) 01/27/2011 14 - Other: See Comments Comments: ulcers CONTRAST DYE (IODINE) 05/17/2008 12 - Shortness of Breath FLAGYL (METRONIDAZOLE HCL) 03/11/2010 12 - Shortness of [place] th IBUPROFEN 06/18/2016 8 - GI Upset PREDNISONE 06/18/2016 14 - Other: See Comments Comments: makes agitated and mean Date Reviewed: 02/23/2020 Reviewed by: Marcelino Mejia - Fully Assessed Reason for Visit: Appointment [186] Prescriptions as of 04/16/2020 Sig: TOPIRAMATE 50 MG TABLET Take 1 tablet by mouth twice * PANTOPRAZOLE 40 MG TABLET,DEL* Take 1 tablet by mouth daily * SERTRALINE 100 MG TABLET Take 1 tablet by mouth once d* QUETIAPINE 100 MG TABLET Take 1 tablet by mouth once d* TRIAMCINOLONE ACETONIDE 0.1 %* Apply to affected areas 2-3 t * PROMETHAZINE 25 MG TABLET Take 1 tablet by mouth every * BENZONATATE 200 MG CAPSULE Take 1 capsule by mouth three* ALBUTEROL SULFATE HFA 90 MCG/* Inhale 2 Puffs as instructed * Problem List As Of Date 04/16/2020 Noted Resolved Routine gynecological examination [Z01.419] 05/17/2008 Class: Chronic More... More... Family history of diabetes mellitus [Z83.3] 05/17/2008 More... Calculus of kidney [N20.0] 05/17/2008 More... Allergic rhinitis, cause unspecified [J30.9] 05/17/2008 More... Migraine without aura [G43.009] 05/17/2008 More... Smoker [F17.200] 05/17/2008 More... Impaired fasting glucose [R73.01] 05/17/2008 More... Benign liver cyst [K76.89] 05/24/2010 Class: Chronic More... Ovarian cyst [N83.209] 07/15/2012 Generalized anxiety disorder [F41.1] 03/31/2016 Reactive depression [F32.9] 03/31/2016 More... Adjustment insomnia [F51.02] 03/31/2016 Encounter for screening for cardiovascular diso*03/31/2016 Bilateral low back pain without sciatica [M54.5]06/18/2016 More... Pain in left hip [M25.552] 06/18/2016 Greater trochanteric bursitis [M70.60] 06/18/2016 Hydronephrosis of left kidney [N13.30] 02/05/2017 Hydroureter on left [N13.4] 02/05/2017 Right facial numbness [R20.0] 02/23/2017 Right upper extremity numbness [R20.0] 02/23/2017 Numbness of right lower extremity [R20.0] 02/23/2017 Weakness of right upper extremity [R29.898] 02/23/2017 Weakness of right lower extremity [R29.898] 02/23/2017 Vision blurred [H53.8] 02/23/2017 Lumbar spine pain [M54.5] 02/23/2017 Cervical spine pain [M54.2] 02/23/2017 Abnormal MRI, lumbar spine [R93.7] 02/23/2017 Hydroureter, left [N13.4] 03/30/2017 Lung nodules [R91.8] 01/22/2020 More... Encounter Status:Closed by BRANDEN SANDERS MA on 04/17/20 cnpn on 2020-03-29 CNPN Telephone (FAMPWS) Normal 03-29-2020 [facility] SALLY MCGREGOR ([id number]) 1980 [facility] Date Time Provider Department ([id number]) 03/29/20 [facility] During your visit today, we recorded the following informati on about you: Melanie Debby HERNANDEZ 03/29/2020 10:06 AM Signed Patient calling crying constantly, so congested from a ll the crying, can not get appt with [facility] will not take her insurance. [facility] will not take any new patients due t o COVID issue. Patient said she just can not take it any longer , last night had emesis twice for no reason. Patient friend called onofremounika patient refused to go to ER, had tele visit with ER. Patient taking ES Tylenol 3 tablets ever y 4 hours not helping, can not take ibuprofen or ASA. Please advise ISABEL ARIAS PA-C 03/29/2020 11:15 AM Signed 1. Can we confirm that [place] [facility] at [facility] doesn't take her insurance. If they don't take her insurance then we ca n see if can get her in with Dr. Church since he is back in [facility] now. 2. Find out how long she has been taking that mu ch tylenol. Because If she is truly taking 3 tylenol every 4 hours she is sign ificantly overdosing tylenol. At that amount she is taking over double the recommended max dosing and putting herself at risk for serious complications like liver failure and may be why she feels sick. She should go to ER so that labs can be checked. Absolute max dose of acetaminophen per day in 4g (2 every 6 hours). We prefer patients around 3grams/day (2 every 8 hours). She could also be causing he rself rebound headaches which comes from overuse of medications like tylenol. Lorenzo Vu 03/29/2020 12:15 PM Signed Patient returned call; crying. Message from ashtyn ider given. Patient says they don't do anything for her in ER and she won't go; states she has not taken Tylenol since Thursday and it's out of her system. Attempt to explain to patient the need for ER and that we will not be able to get he r into neuro same day, especially since she does not have transportation. Asked sameer cheney what she wants us to do and she said to ask for prescription for [facility] le relaxer or ibuprofen (she said, in below message she can't take ibuprof en). TC to [facility] and had to leave message for them to return call regarding if they accept patient's insurance. Instructed the m to give patient's name when they return the call so we can document. Lorenzo Vu 03/29/2020 12:49 PM Signed Giulia / [facility] returned call stating the y do not take [place]; provider is not credentialed with them yet. She put her on wait list for when provider gets credentialed. Scheduled appointment with Dr Church for 05/07/20. Patient not ified (patient sounded calmer and not crying). Patient wanted to know if any medications were prescribed. Lexy Tapia RN 03/29/2020 3:28 PM Signed Patient calls back - see both notes below . Melyssa ent asking for muscle relaxer for her migraines. Pharmacy is [facility]. Please review and advise. VIN Solis MD 03/29/2020 4:14 PM Signed Let patient know I sent in script for baclofen 10 mg t alec moreau for 5 days. This will be the only script I will send in. unfortunately we have been trying to get her to move forward with work up and referrals for her headaches and other issues since january and has not complied. Will need to wait till she gets into the specialist as advised for any further changes. The following approved medic ation requests have been transmitted electronically. Signed Prescriptions Disp Refills baclofen (LIORESAL) 10 mg tablet 10 tablet 0 Sig: Take 1 tablet by mouth twice daily for 5 days. Authorizing Provider: MARCELINO MEJIA MD Kathryn Rowland Ma 03/29/2020 4:57 PM Signed Pt notified. She is drinking more water and taking Benadryl 50 mg every 6 hours which does seem to help relieve some of the pressure. Jessica Murphy Ma Allergies As of Date: 03/29/2020 Noted Allergy Reaction PENICILLINS 12/07/2009 2 - Rash ASA (SALICYLATES) 01/27/2011 14 - Other: See Comments Comments: ulcers CONTRAST DYE (IODINE) 05/17/2008 12 - Shortness of Breath FLAGYL (METRONIDAZOLE HCL) 03/11/2010 12 - Shortness of [place] th IBUPROFEN 06/18/2016 8 - GI Upset PREDNISONE 06/18/2016 14 - Other: See Comments Comments: makes agitated and mean Date Reviewed: 02/23/2020 Reviewed by: Marcelino Mejia - Fully Assessed Reason for Visit: having issues can not get neurology appt [Other] Order(s):baclofen (LIORESAL) 10 mg tabletTake 1 tablet by mouth twice daily for 5 days.Disp: 10 tabletRfl: 0 Prescriptions as of 03/29/2020 Sig: BACLOFEN 10 MG TABLET Take 1 tablet by mouth twice * TOPIRAMATE 50 MG TABLET Take 1 tablet by mouth twice * PANTOPRAZOLE 40 MG TABLET,DEL* Take 1 tablet by mouth daily * SERTRALINE 100 MG TABLET Take 1 tablet by mouth once d* QUETIAPINE 100 MG TABLET Take 1 tablet by mouth once d* TRIAMCINOLONE ACETONIDE 0.1 %* Apply to affected areas 2-3 t * PROMETHAZINE 25 MG TABLET Take 1 tablet by mouth every * BENZONATATE 200 MG CAPSULE Take 1 capsule by mouth three* ALBUTEROL SULFATE HFA 90 MCG/* Inhale 2 Puffs as instructed * Problem List As Of Date 03/29/2020 Noted Resolved Routine gynecological examination [Z01.419] 05/17/2008 Class: Chronic More... More... Family history of diabetes mellitus [Z83.3] 05/17/2008 More... Calculus of kidney [N20.0] 05/17/2008 More... Allergic rhinitis, cause unspecified [J30.9] 05/17/2008 More... Migraine without aura [G43.009] 05/17/2008 More... Smoker [F17.200] 05/17/2008 More... Impaired fasting glucose [R73.01] 05/17/2008 More... Benign liver cyst [K76.89] 05/24/2010 Class: Chronic More... Ovarian cyst [N83.209] 07/15/2012 Generalized anxiety disorder [F41.1] 03/31/2016 Reactive depression [F32.9] 03/31/2016 More... Adjustment insomnia [F51.02] 03/31/2016 Encounter for screening for cardiovascular diso*03/31/2016 Bilateral low back pain without sciatica [M54.5]06/18/2016 More... Pain in left hip [M25.552] 06/18/2016 Greater trochanteric bursitis [M70.60] 06/18/2016 Hydronephrosis of left kidney [N13.30] 02/05/2017 Hydroureter on left [N13.4] 02/05/2017 Right facial numbness [R20.0] 02/23/2017 Right upper extremity numbness [R20.0] 02/23/2017 Numbness of right lower extremity [R20.0] 02/23/2017 Weakness of right upper extremity [R29.898] 02/23/2017 Weakness of right lower extremity [R29.898] 02/23/2017 Vision blurred [H53.8] 02/23/2017 Lumbar spine pain [M54.5] 02/23/2017 Cervical spine pain [M54.2] 02/23/2017 Abnormal MRI, lumbar spine [R93.7] 02/23/2017 Hydroureter, left [N13.4] 03/30/2017 Lung nodules [R91.8] 01/22/2020 More... Prescriptions ordered this encounter Disp Refills Start End BACLOFEN 10 MG TABLET 10 t* 0 03/29/2020 04/03/2020 Route: ORAL Sig: Take 1 tablet by mouth twice daily for 5 days. Encounter Status:Closed by JESSICA MURPHY MA on 03/29/20 cnpn on 2020-03-28 CNPN Telephone (FAMWS) Normal 03-28-2020 [place] [facility] SALLY MCGREGOR ([id number]) 1980 [facility] Date Time Provider Department ([id number]) 03/28/20 MARCELINO MEJIA During your visit today, we recorded the following informati on about you: Christopher Carcamo RN 03/28/2020 6:01 PM Signed Patient reports she was hold ing pots / pans in left hand, bent down to put them under the stove, arm/hand went numb, and the pots/pans went everywhere. No other symptoms. Called Dr. Mejia right away. Nu mbness / tingling in left arm is now gone, but hand is still tingly. S he will monitor and call back tomorrow with any concerns. If condition worsens will go to ER, but s eems to be improving as we speak. Also wanted Dr. Mejia to know she is still trying to get ap pt with neurologist- she left a message for that office to call her. Marcelino Mejia MD 03/28/2020 6:54 PM Signed Noted. Allergies As of Date: 03/28/2020 Noted Allergy Reaction PENICILLINS 12/07/2009 2 - Rash ASA (SALICYLATES) 01/27/2011 14 - Other: See Comments Comments: ulcers CONTRAST DYE (IODINE) 05/17/2008 12 - Shortness of Breath FLAGYL (METRONIDAZOLE HCL) 03/11/2010 12 - Shortness of [place] th IBUPROFEN 06/18/2016 8 - GI Upset PREDNISONE 06/18/2016 14 - Other: See Comments Comments: makes agitated and mean Date Reviewed: 02/23/2020 Reviewed by: Marcelino Mejia - Fully Assessed Reason for Visit: Left arm numbness [Other] Prescriptions as of 03/28/2020 Sig: TOPIRAMATE 50 MG TABLET Take 1 tablet by mouth twice * PANTOPRAZOLE 40 MG TABLET,DEL* Take 1 tablet by mouth daily * SERTRALINE 100 MG TABLET Take 1 tablet by mouth once d* QUETIAPINE 100 MG TABLET Take 1 tablet by mouth once d* TRIAMCINOLONE ACETONIDE 0.1 %* Apply to affected areas 2-3 t * PROMETHAZINE 25 MG TABLET Take 1 tablet by mouth every * BENZONATATE 200 MG CAPSULE Take 1 capsule by mouth three* ALBUTEROL SULFATE HFA 90 MCG/* Inhale 2 Puffs as instructed * Problem List As Of Date 03/28/2020 Noted Resolved Routine gynecological examination [Z01.419] 05/17/2008 Class: Chronic More... More... Family history of diabetes mellitus [Z83.3] 05/17/2008 More... Calculus of kidney [N20.0] 05/17/2008 More... Allergic rhinitis, cause unspecified [J30.9] 05/17/2008 More... Migraine without aura [G43.009] 05/17/2008 More... Smoker [F17.200] 05/17/2008 More... Impaired fasting glucose [R73.01] 05/17/2008 More... Benign liver cyst [K76.89] 05/24/2010 Class: Chronic More... Ovarian cyst [N83.209] 07/15/2012 Generalized anxiety disorder [F41.1] 03/31/2016 Reactive depression [F32.9] 03/31/2016 More... Adjustment insomnia [F51.02] 03/31/2016 Encounter for screening for cardiovascular diso*03/31/2016 Bilateral low back pain without sciatica [M54.5]06/18/2016 More... Pain in left hip [M25.552] 06/18/2016 Greater trochanteric bursitis [M70.60] 06/18/2016 Hydronephrosis of left kidney [N13.30] 02/05/2017 Hydroureter on left [N13.4] 02/05/2017 Right facial numbness [R20.0] 02/23/2017 Right upper extremity numbness [R20.0] 02/23/2017 Numbness of right lower extremity [R20.0] 02/23/2017 Weakness of right upper extremity [R29.898] 02/23/2017 Weakness of right lower extremity [R29.898] 02/23/2017 Vision blurred [H53.8] 02/23/2017 Lumbar spine pain [M54.5] 02/23/2017 Cervical spine pain [M54.2] 02/23/2017 Abnormal MRI, lumbar spine [R93.7] 02/23/2017 Hydroureter, left [N13.4] 03/30/2017 Lung nodules [R91.8] 01/22/2020 More... Encounter Status:Closed by MARCELINO MEJIA on 03/28/20 obsolete on 2020-03 OBSOLETE Refill (FAMPWS) Normal 03-27-2020 Isaías [facility] SALLY MCGREGOR ([id number]) 1980 [facility] Date Time Provider Department ([id number]) 03/27/20 MARCELINO MEJIA FAMPWS During your visit today, we recorded the following informati on about you: Valente Bruce Ma 03/27/2020 8:32 AM Signed Patient has been identified by name and date of : Yes Pending Prescriptions Disp Refills TOPIRAMATE 25 MG TABLET 120 tablet 1 Sig: Take 1 po qhs x 1 week then increase to 1 po BID x 1 we ek. Then 1 qam and 2 qpm x1 week, then take 2 po BID. LIGIA: No RX INSTRUCTIONS: Patient aware RX will be sent to pharmacy. No need to notify patient. Valente rBuce Ma Last ov: 03/2020 Last refill: 01/2020 No appointment scheduled ISABEL ARIAS PA-C 03/27/2020 10:14 AM Signed The following approved medic ation requests have been transmitted electronically. Signed Prescriptions Disp Refills topiramate (TOPAMAX) 50 mg tablet 60 tablet 1 Sig: Take 1 tablet by mouth twice daily. LIGIA: No Authorizing Provider: ISABEL ARIAS (MAYA) ISABEL ARIAS PA-C Allergies As of Date: 03/27/2020 Noted Allergy Reaction PENICILLINS 12/07/2009 2 - Rash ASA (SALICYLATES) 01/27/2011 14 - Other: See Comments Comments: ulcers CONTRAST DYE (IODINE) 05/17/2008 12 - Shortness of Breath FLAGYL (METRONIDAZOLE HCL) 03/11/2010 12 - Shortness of [place] th IBUPROFEN 06/18/2016 8 - GI Upset PREDNISONE 06/18/2016 14 - Other: See Comments Comments: makes agitated and mean Date Reviewed: 02/23/2020 Reviewed by: Marcelino Mejia - Fully Assessed Reason for Visit: Refill Request [94] Order(s):topiramate (TOPAMAX) 50 mg tabletTake 1 tablet by m outh twice daily.Disp: 60 tabletRfl: 1 Prescriptions as of 03/27/2020 Sig: TOPIRAMATE 50 MG TABLET Take 1 tablet by mouth twice * PANTOPRAZOLE 40 MG TABLET,DEL* Take 1 tablet by mouth daily * SERTRALINE 100 MG TABLET Take 1 tablet by mouth once d* QUETIAPINE 100 MG TABLET Take 1 tablet by mouth once d* TRIAMCINOLONE ACETONIDE 0.1 %* Apply to affected areas 2-3 t * PROMETHAZINE 25 MG TABLET Take 1 tablet by mouth every * BENZONATATE 200 MG CAPSULE Take 1 capsule by mouth three* ALBUTEROL SULFATE HFA 90 MCG/* Inhale 2 Puffs as instructed * Problem List As Of Date 03/27/2020 Noted Resolved Routine gynecological examination [Z01.419] 05/17/2008 Class: Chronic More... More... Family history of diabetes mellitus [Z83.3] 05/17/2008 More... Calculus of kidney [N20.0] 05/17/2008 More... Allergic rhinitis, cause unspecified [J30.9] 05/17/2008 More... Migraine without aura [G43.009] 05/17/2008 More... Smoker [F17.200] 05/17/2008 More... Impaired fasting glucose [R73.01] 05/17/2008 More... Benign liver cyst [K76.89] 05/24/2010 Class: Chronic More... Ovarian cyst [N83.209] 07/15/2012 Generalized anxiety disorder [F41.1] 03/31/2016 Reactive depression [F32.9] 03/31/2016 More... Adjustment insomnia [F51.02] 03/31/2016 Encounter for screening for cardiovascular diso*03/31/2016 Bilateral low back pain without sciatica [M54.5]06/18/2016 More... Pain in left hip [M25.552] 06/18/2016 Greater trochanteric bursitis [M70.60] 06/18/2016 Hydronephrosis of left kidney [N13.30] 02/05/2017 Hydroureter on left [N13.4] 02/05/2017 Right facial numbness [R20.0] 02/23/2017 Right upper extremity numbness [R20.0] 02/23/2017 Numbness of right lower extremity [R20.0] 02/23/2017 Weakness of right upper extremity [R29.898] 02/23/2017 Weakness of right lower extremity [R29.898] 02/23/2017 Vision blurred [H53.8] 02/23/2017 Lumbar spine pain [M54.5] 02/23/2017 Cervical spine pain [M54.2] 02/23/2017 Abnormal MRI, lumbar spine [R93.7] 02/23/2017 Hydroureter, left [N13.4] 03/30/2017 Lung nodules [R91.8] 01/22/2020 More... Prescriptions ordered this encounter Disp Refills Start End TOPIRAMATE 50 MG TABLET 60 t* 1 03/27/2020 Route: ORAL Sig: Take 1 tablet by mouth twice daily. Medications Discontinued During This Encounter topiramate (TOPAMAX) 25 mg tablet 120 * 1 01/24/2020 0 Sig: Take 1 po qhs x 1 week then increase to 1 po BID x 1 week. Then 1 qam and 2 qpm x1 week, then take 2 po BID. Disc: Reason for discontinue is not on file. Encounter Status:Closed by ISABEL WARE on 03/27/20 jakin on 2020-03-27 CNPN Telephone (FAMPWS) Normal 03-27-2020 [facility] SALLY MCGREGOR ([id number]) 1980 [place] Date Time Provider Department ([id number]) 03/27/20 MARCELINO MEJIA During your visit today, we recorded the following informati on about you: Yvette Huffman RN 03/27/2020 10:59 AM Signed Pt called, verified by name and birthdate. Pt states s he went to [facility] ER last night for a migraine and had a CT scan. Pt wants PCP to review ER records. Pt wants referral to neurology. Order pended. When signed pleas e fax to [facility] at [facility] per pt request Yvette Murphy Ma 03/27/2020 12:20 PM Signed ER reports on PCP's desk to review. Jessica Zhou, RN, RN 03/27/2020 1:37 PM Signed Pt calls, asking what the diagnosis was on the ER note. Pt states she was told air bubble, tumor States Imitrex is not working. Has already taken 2 today. Wa iting on [facility] to call her back Pt asking if PCP can order something for the migraine. Pt does NOT want pain meds. Pt asking for Gabapentin or something like that Also asking if she should still get MRI or wait until she sees neuro. She is only allowed 2 rides per month. She has already used 1 Marcelino Mejia MD 03/27/2020 1:52 PM Signed referral placed and can be faxed to [facility]. Let patient know th e CT did not show a bubble or tumor. I t showed that the sella may be empty but neuro felt this can not be determined on a CT. Let patient know she is to be taking the imitrex one t wice a day for 5 days. So that would be about 12 hrs apart and should not of already taken two today. I will not be prescribing anything else for her migraine. In regards to her MRI I think she should get it but we have tried to have her get it over the past 2 months. The main issue is we can't g o further in her care when she can't get places for exam's/studies or see the specialist she has been referred to. See needs to contact her care provider to get the help see nee ds as instructed on 03/22/2020, otherwise our hands are tied. Jessica Murphy Ma 03/27/2020 2:29 PM Signed Pt notified and voiced understanding. Referral and Dem o faxed to [facility]. Jessica Murphy Ma Allergies As of Date: 03/27/2020 Noted Allergy Reaction PENICILLINS 12/07/2009 2 - Rash ASA (SALICYLATES) 01/27/2011 14 - Other: See Comments Comments: ulcers CONTRAST DYE (IODINE) 05/17/2008 12 - Shortness of Breath FLAGYL (METRONIDAZOLE HCL) 03/11/2010 12 - Shortness of [place] th IBUPROFEN 06/18/2016 8 - GI Upset PREDNISONE 06/18/2016 14 - Other: See Comments Comments: makes agitated and mean Date Reviewed: 02/23/2020 Reviewed by: Marcelino Mejia - Fully Assessed Reason for Visit: Patient Update [1234] Primary Visit Diagnosis:Migraine without aura an d without status migrainosus, not intractable [G43.009] Order(s):CONSULT TO NEUROLOGY [9019] Order #: [id number]: 1 FUTURE Prescriptions as of 03/27/2020 Sig: TOPIRAMATE 50 MG TABLET Take 1 tablet by mouth twice * PANTOPRAZOLE 40 MG TABLET,DEL* Take 1 tablet by mouth daily * SERTRALINE 100 MG TABLET Take 1 tablet by mouth once d* QUETIAPINE 100 MG TABLET Take 1 tablet by mouth once d* TRIAMCINOLONE ACETONIDE 0.1 %* Apply to affected areas 2-3 t * PROMETHAZINE 25 MG TABLET Take 1 tablet by mouth every * BENZONATATE 200 MG CAPSULE Take 1 capsule by mouth three* ALBUTEROL SULFATE HFA 90 MCG/* Inhale 2 Puffs as instructed * Problem List As Of Date 03/27/2020 Noted Resolved Routine gynecological examination [Z01.419] 05/17/2008 Class: Chronic More... More... Family history of diabetes mellitus [Z83.3] 05/17/2008 More... Calculus of kidney [N20.0] 05/17/2008 More... Allergic rhinitis, cause unspecified [J30.9] 05/17/2008 More... Migraine without aura [G43.009] 05/17/2008 More... Smoker [F17.200] 05/17/2008 More... Impaired fasting glucose [R73.01] 05/17/2008 More... Benign liver cyst [K76.89] 05/24/2010 Class: Chronic More... Ovarian cyst [N83.209] 07/15/2012 Generalized anxiety disorder [F41.1] 03/31/2016 Reactive depression [F32.9] 03/31/2016 More... Adjustment insomnia [F51.02] 03/31/2016 Encounter for screening for cardiovascular diso*03/31/2016 Bilateral low back pain without sciatica [M54.5]06/18/2016 More... Pain in left hip [M25.552] 06/18/2016 Greater trochanteric bursitis [M70.60] 06/18/2016 Hydronephrosis of left kidney [N13.30] 02/05/2017 Hydroureter on left [N13.4] 02/05/2017 Right facial numbness [R20.0] 02/23/2017 Right upper extremity numbness [R20.0] 02/23/2017 Numbness of right lower extremity [R20.0] 02/23/2017 Weakness of right upper extremity [R29.898] 02/23/2017 Weakness of right lower extremity [R29.898] 02/23/2017 Vision blurred [H53.8] 02/23/2017 Lumbar spine pain [M54.5] 02/23/2017 Cervical spine pain [M54.2] 02/23/2017 Abnormal MRI, lumbar spine [R93.7] 02/23/2017 Hydroureter, left [N13.4] 03/30/2017 Lung nodules [R91.8] 01/22/2020 More... Encounter Status:Closed by JESSICA MURPHY MA on 03/27/20 progress on 2020-03 PROGRESS HNO ID: [id number] Normal 03-22-2020 [facility] Author: Isabel (Maya) Hugo Mata ([id number]) Service: ? Author Type: Physician Taximeter Repairer Type: Progress Notes Filed: 03/22/2020 9:50 AM Note Text: DISTANCE [facility] VISIT This Team Access Model visit is a phone encounter. It requir ed patient-provider interaction for the medical decision making as documented below. No video was used for evaluation of this patient. Patient consents to visit. Patient location: [place] Sally Mcgregor is a 39 year old female seen for headaches a nd pain. Patient states she has had to cancel with pain management 5 different times so now they won't reschedule her. She continues to have migraines/headaches. Only taking topam ax once a day. Couldn't do MRI or US due to rides. States she couldn't go to [place] for her cardiac testing but continues to have pre syncopal episodes. Has not been able to go see card iologist either. She is specifically asking about going on disability as well . HISTORY REVIEWED (electronic chart updated): - medical history - medications - allergies REVIEW OF SYSTEMS: As noted in HPI PHYSICAL EXAMINATION: LMP 08/10/2006 Any vital signs collected today were done so using patient's home equipment, otherwise no vital signs due to distant health vi sit. Deferred physical exam as visit was completed over the phone . However patient sounds well without signs of shortness of breath or distress. ASSESSMENT: (G43.009) Migraine without aura and without status migrainos us, not intractable (primary encounter diagnosis) (M54.2) Cervical spine pain (M54.5) Bilateral low back pain without sciatica, unspecifie d chronicity PLAN: ASSESSMENT/PLAN: 1. Migraine without aura and without status migrainosus, not intractable - ICD9: 346.10, ICD10: G43.009 (primary diagnosis) Patient to increase the topamax as instructed. She needs to get scheduled with pain and neurologist. She wi ll have to check with insurance to see if any other local pain speciali st takes her insurance. 2. Cervical spine pain - ICD9: 723.1, ICD10: M54.2 As above 3. Bilateral low back pain without sciatica, unspecified chr onicity - ICD9: 724.2, ICD10: M54.5 As above ISABEL ARIAS PA-C Explained to patient that, she needs to follow up with our r ecommendations and with specialists. SW contacted and will provider her noris HENDRIX recommendations for ride assistance. ISABEL ARIAS PA-C Total appointment time on phone with patient = 11-20 minutes cnpn on 2020-03-22 CNPN Telephone ([facility] [facility] Normal 03-22-2020 [facility] TOSHIASALLY TORRES ([id number]) 1980 [facility] Date Time Provider Department ([id number]) 03/22/20 ISABEL ARIAS) RAMA During your visit today, we recorded the following informati on about you: ISABEL ARIAS PA-C 03/22/2020 9:43 AM Signed Please let patient know that this is info I have received from in regards to rides: The last I knew, most of them were back up and running. I do know that [facility] [employer] has been continuing with their ride assistance and are taking people to their appts. I would sa y they need to check now with insurance to see if able to set up ride. The patient could also see if they can request a care provider through their Medicaid Managed Care p maria esther. I have patients that have Medicaid plan and their care managers a re able to assist them setting up services. Having a care provider through insu eve is great because they can assist with barriers to healthcare. Jessica Murphy Ma 03/22/2020 11:02 AM Signed Pt notified. She states that she is only allowed 2 rides per month. She states that she is going to be using her 2 ride next week for the dentist. She states that she does not drive, states her licen se was suspended due to child support issues, her boyfrien d sleeps all day and his van is broke down, she has not family or friends that can take her to her appts, can't afford taxi. She states she has had to miss several appts and cancelled appts with pain management 6 x due to no rides. She states she has a care ma singh through medicaid [place] but she only calls her about once a year. She states she will have to make the MRI and CT appt n ext month when she has rides again. I advised her that she contact [place] and request more help from her care provider. Allergies As of Date: 03/22/2020 Noted Allergy Reaction PENICILLINS 12/07/2009 2 - Rash ASA (SALICYLATES) 01/27/2011 14 - Other: See Comments Comments: ulcers CONTRAST DYE (IODINE) 05/17/2008 12 - Shortness of Breath FLAGYL (METRONIDAZOLE HCL) 03/11/2010 12 - Shortness of María th IBUPROFEN 06/18/2016 8 - GI Upset PREDNISONE 06/18/2016 14 - Other: See Comments Comments: makes agitated and mean Date Reviewed: 02/23/2020 Reviewed by: Marcelino Mejia - Fully Assessed Reason for Visit: Follow up info [Other] Cmt: Ride concerns Prescriptions as of 03/22/2020 Sig: PANTOPRAZOLE 40 MG TABLET,DEL* Take 1 tablet by mouth daily * SERTRALINE 100 MG TABLET Take 1 tablet by mouth once d* QUETIAPINE 100 MG TABLET Take 1 tablet by mouth once d* TRIAMCINOLONE ACETONIDE 0.1 %* Apply to affected areas 2-3 t * PROMETHAZINE 25 MG TABLET Take 1 tablet by mouth every * TOPIRAMATE 25 MG TABLET Take 1 po qhs x 1 week then i* BENZONATATE 200 MG CAPSULE Take 1 capsule by mouth three* ALBUTEROL SULFATE HFA 90 MCG/* Inhale 2 Puffs as instructed * Problem List As Of Date 03/22/2020 Noted Resolved Routine gynecological examination [Z01.419] 05/17/2008 Class: Chronic More... More... Family history of diabetes mellitus [Z83.3] 05/17/2008 More... Calculus of kidney [N20.0] 05/17/2008 More... Allergic rhinitis, cause unspecified [J30.9] 05/17/2008 More... Migraine without aura [G43.009] 05/17/2008 More... Smoker [F17.200] 05/17/2008 More... Impaired fasting glucose [R73.01] 05/17/2008 More... Benign liver cyst [K76.89] 05/24/2010 Class: Chronic More... Ovarian cyst [N83.209] 07/15/2012 Generalized anxiety disorder [F41.1] 03/31/2016 Reactive depression [F32.9] 03/31/2016 More... Adjustment insomnia [F51.02] 03/31/2016 Encounter for screening for cardiovascular diso*03/31/2016 Bilateral low back pain without sciatica [M54.5]06/18/2016 More... Pain in left hip [M25.552] 06/18/2016 Greater trochanteric bursitis [M70.60] 06/18/2016 Hydronephrosis of left kidney [N13.30] 02/05/2017 Hydroureter on left [N13.4] 02/05/2017 Right facial numbness [R20.0] 02/23/2017 Right upper extremity numbness [R20.0] 02/23/2017 Numbness of right lower extremity [R20.0] 02/23/2017 Weakness of right upper extremity [R29.898] 02/23/2017 Weakness of right lower extremity [R29.898] 02/23/2017 Vision blurred [H53.8] 02/23/2017 Lumbar spine pain [M54.5] 02/23/2017 Cervical spine pain [M54.2] 02/23/2017 Abnormal MRI, lumbar spine [R93.7] 02/23/2017 Hydroureter, left [N13.4] 03/30/2017 Lung nodules [R91.8] 01/22/2020 More... Encounter Status:Closed by ISABEL WARE [facility] 03/22/[facility] Normal 03-08-2020 [place]ly SALLY Martinez ([id number]) 1980 [facility] Date Time Provider Department ([id number]) 03/08/20 [facility] During your visit today, we recorded the following informati on about you: Janneth Melody HERNANDEZ 03/08/2020 2:58 PM Signed Patient states she has loss of appetite and weight loss. S krishan she lost 10 lb. in 5 days. Stomach feels bloated. Pt is able to eat and drink okay, no vomiting , 2 episodes of diarrhea. No fever. Wanting to know what to do or wait until after March 19 test results. Appointments scheduled for March 19 - US and MRI. Marcelino Mejia MD 03/08/2020 4:18 PM Signed Advise patient she needs to make her mini t to see gastroenterology as discussed recently. Branden Sanders Ma 03/08/2020 4:42 PM Signed Tried calling patient back no answer and vm was full Branden Bernardo LPN 03/08/2020 5:02 PM Signed Pt returns call. Advised her of provider's message. Placed p t on hold to transfer with warm transfer to scheduling and while waiting for pediatric oncology nurse which was awhile, pt dropped call. Attempted t o contact pt back but no answer and vm was full. Pt was aware of instructions to schedule with Leora ro. iJgar Bernardo LPN Allergies As of Date: 03/08/2020 Noted Allergy Reaction PENICILLINS 12/07/2009 2 - Rash ASA (SALICYLATES) 01/27/2011 14 - Other: See Comments Comments: ulcers CONTRAST DYE (IODINE) 05/17/2008 12 - Shortness of Breath FLAGYL (METRONIDAZOLE HCL) 03/11/2010 12 - Shortness of [place] th IBUPROFEN 06/18/2016 8 - GI Upset PREDNISONE 06/18/2016 14 - Other: See Comments Comments: makes agitated and mean Date Reviewed: 02/23/2020 Reviewed by: Marcelino Mejia - Fully Assessed Reason for Visit: loss of appetite [Other] Prescriptions as of 03/08/2020 Sig: PANTOPRAZOLE 40 MG TABLET,DEL* Take 1 tablet by mouth daily * SERTRALINE 100 MG TABLET Take 1 tablet by mouth once d* QUETIAPINE 100 MG TABLET Take 1 tablet by mouth once d* TRIAMCINOLONE ACETONIDE 0.1 %* Apply to affected areas 2-3 t * PROMETHAZINE 25 MG TABLET Take 1 tablet by mouth every * TOPIRAMATE 25 MG TABLET Take 1 po qhs x 1 week then i* BENZONATATE 200 MG CAPSULE Take 1 capsule by mouth three* ALBUTEROL SULFATE HFA 90 MCG/* Inhale 2 Puffs as instructed * Problem List As Of Date 03/08/2020 Noted Resolved Routine gynecological examination [Z01.419] 05/17/2008 Class: Chronic More... More... Family history of diabetes mellitus [Z83.3] 05/17/2008 More... Calculus of kidney [N20.0] 05/17/2008 More... Allergic rhinitis, cause unspecified [J30.9] 05/17/2008 More... Migraine without aura [G43.009] 05/17/2008 More... Smoker [F17.200] 05/17/2008 More... Impaired fasting glucose [R73.01] 05/17/2008 More... Benign liver cyst [K76.89] 05/24/2010 Class: Chronic More... Ovarian cyst [N83.209] 07/15/2012 Generalized anxiety disorder [F41.1] 03/31/2016 Reactive depression [F32.9] 03/31/2016 More... Adjustment insomnia [F51.02] 03/31/2016 Encounter for screening for cardiovascular diso*03/31/2016 Bilateral low back pain without sciatica [M54.5]06/18/2016 More... Pain in left hip [M25.552] 06/18/2016 Greater trochanteric bursitis [M70.60] 06/18/2016 Hydronephrosis of left kidney [N13.30] 02/05/2017 Hydroureter on left [N13.4] 02/05/2017 Right facial numbness [R20.0] 02/23/2017 Right upper extremity numbness [R20.0] 02/23/2017 Numbness of right lower extremity [R20.0] 02/23/2017 Weakness of right upper extremity [R29.898] 02/23/2017 Weakness of right lower extremity [R29.898] 02/23/2017 Vision blurred [H53.8] 02/23/2017 Lumbar spine pain [M54.5] 02/23/2017 Cervical spine pain [M54.2] 02/23/2017 Abnormal MRI, lumbar spine [R93.7] 02/23/2017 Hydroureter, left [N13.4] 03/30/2017 Lung nodules [R91.8] 01/22/2020 More... Encounter Status:Closed by BRANDEN SANDERS MA on 03/09/20 [place]na on 2020-03-05 [facility]NPN Telephone ([facility]) Normal 03-05-2020 [facility] BENJIShivaSALLY ([id number]) 1980 F [place] Date Time Provider Department ([id number]) 03/05/20 [facility] During your visit today, we recorded the following informati on about you: Sallie Benitez EXERCISE PHYSIOLOGIST CERTIFIED 03/05/2020 1:58 PM Signed Patient is scheduling an MRI for next mo nth but asking for a dose of Ativan to take prior to MRI d/t being claustrophobic. She is also asking for a new script for protonix. This was prescribed while at recent hospital stay. ISABEL ARIAS PA-C 03/05/2020 3:15 PM Signed I already sent in the script for the ativan for her MR I. She picked it up at the pharmacy on 01/23. What did she do wi th that pil? no refills will be given. Prescription for protonix sent. MAYA Bowser Ma 03/05/2020 3:28 PM Signed Contacted patient and she phone cut out. Could not hear chaz knight; instructed patient that if she could hear me to call the office. Sarai Guardado LPN 03/05/2020 3:51 PM Signed Patient returned call and went over notes from Isabel WARE, patient said she took it already had bad day, when she was trying to get all tests scheduled before. Now she ke eps having ride issues. Patient said she can not do the MRI with out the medication. ISABEL ARIAS PA-C 03/05/2020 4:13 PM Signed No refill will be given at this time. I will onl y give it to be picked up the day before or morning of the MRI. She can contact us t he day before the MRI. Taking the medication already went against our verbal agre ement and this is never acceptable especially when it's a controlled substance .. MAYA Bowser MA, BROCK 03/06/2020 9:48 AM Signed Patient informed of results, verbalized understanding. March 19 MRI And vas labs. BROCK Fritz PA-C 03/06/2020 10:21 AM Signed Noted. Isabel Arias PA-C Allergies As of Date: 03/05/2020 Noted Allergy Reaction PENICILLINS 12/07/2009 2 - Rash ASA (SALICYLATES) 01/27/2011 14 - Other: See Comments Comments: ulcers CONTRAST DYE (IODINE) 05/17/2008 12 - Shortness of Breath FLAGYL (METRONIDAZOLE HCL) 03/11/2010 12 - Shortness of María th IBUPROFEN 06/18/2016 8 - GI Upset PREDNISONE 06/18/2016 14 - Other: See Comments Comments: makes agitated and mean Date Reviewed: 02/23/2020 Reviewed by: Marcelino Mejia - Fully Assessed Reason for Visit: Medication Request [138] Order(s):pantoprazole DR (PROTONIX) 40 mg tabletTake 1 tablet by mouth daily before breakfast. Take on empty stomach, 1/2 hr before meal. Disp: 30 tabletRfl: 1 Prescriptions as of 03/05/2020 Sig: PANTOPRAZOLE 40 MG TABLET,DEL* Take 1 tablet by mouth daily * SERTRALINE 100 MG TABLET Take 1 tablet by mouth once d* QUETIAPINE 100 MG TABLET Take 1 tablet by mouth once d* TRIAMCINOLONE ACETONIDE 0.1 %* Apply to affected areas 2-3 t * PROMETHAZINE 25 MG TABLET Take 1 tablet by mouth every * TOPIRAMATE 25 MG TABLET Take 1 po qhs x 1 week then i* BENZONATATE 200 MG CAPSULE Take 1 capsule by mouth three* ALBUTEROL SULFATE HFA 90 MCG/* Inhale 2 Puffs as instructed * Problem List As Of Date 03/05/2020 Noted Resolved Routine gynecological examination [Z01.419] 05/17/2008 Class: Chronic More... More... Family history of diabetes mellitus [Z83.3] 05/17/2008 More... Calculus of kidney [N20.0] 05/17/2008 More... Allergic rhinitis, cause unspecified [J30.9] 05/17/2008 More... Migraine without aura [G43.009] 05/17/2008 More... Smoker [F17.200] 05/17/2008 More... Impaired fasting glucose [R73.01] 05/17/2008 More... Benign liver cyst [K76.89] 05/24/2010 Class: Chronic More... Ovarian cyst [N83.209] 07/15/2012 Generalized anxiety disorder [F41.1] 03/31/2016 Reactive depression [F32.9] 03/31/2016 More... Adjustment insomnia [F51.02] 03/31/2016 Encounter for screening for cardiovascular diso*03/31/2016 Bilateral low back pain without sciatica [M54.5]06/18/2016 More... Pain in left hip [M25.552] 06/18/2016 Greater trochanteric bursitis [M70.60] 06/18/2016 Hydronephrosis of left kidney [N13.30] 02/05/2017 Hydroureter on left [N13.4] 02/05/2017 Right facial numbness [R20.0] 02/23/2017 Right upper extremity numbness [R20.0] 02/23/2017 Numbness of right lower extremity [R20.0] 02/23/2017 Weakness of right upper extremity [R29.898] 02/23/2017 Weakness of right lower extremity [R29.898] 02/23/2017 Vision blurred [H53.8] 02/23/2017 Lumbar spine pain [M54.5] 02/23/2017 Cervical spine pain [M54.2] 02/23/2017 Abnormal MRI, lumbar spine [R93.7] 02/23/2017 Hydroureter, left [N13.4] 03/30/2017 Lung nodules [R91.8] 01/22/2020 More... Prescriptions ordered this encounter Disp Refills Start End PANTOPRAZOLE 40 MG TABLET,DELAYED RE* 30 t* 1 03/05/2020 Route: ORAL Sig: Take 1 tablet by mouth daily before breakfast. Take on empty stomach, 1/2 hr before meal. Encounter Status:Closed by ISABEL WARE on 03/06/20 CNPN Telephone ([facility]) Normal 03-05-2020 [facility] SALLY MCGREGOR ([id number]) 1980 F [place] Date Time Provider Department ([id number]) 03/05/20 MARCELINO MEJIA During your visit today, we recorded the following informati on about you: Melanie Debby EXERCISE PHYSIOLOGIST CERTIFIED 03/05/2020 2:16 PM Signed Patient calling would like pediatric oncology nurse to call her back to set up MRI brain, [place] Cardiac Perf stress test, Ultrasound Carotid arteries [facility]. Patient has issues with her phone continues to c ut off before she can get all done. patient wants to schedule all for one day, which I told very doubtful to do, because of ride issues. Please assist with scheduling. Marry Hurley Pss 03/06/2020 2:41 PM Signed Contacted patient to schedule the rest o f her appointments. She stated she has Dr. Cueto for her civil preparedness officer.did not want to go to [place] for [place] Pharm Stress. vic stated [facility]. Verified that we have [facility] and MRI schedul ed here on 03/19. -Marry Xavi Pss Allergies As of Date: 03/05/2020 Noted Allergy Reaction PENICILLINS 12/07/2009 2 - Rash ASA (SALICYLATES) 01/27/2011 14 - Other: See Comments Comments: ulcers CONTRAST DYE (IODINE) 05/17/2008 12 - Shortness of Breath FLAGYL (METRONIDAZOLE HCL) 03/11/2010 12 - Shortness of [place] th IBUPROFEN 06/18/2016 8 - GI Upset PREDNISONE 06/18/2016 14 - Other: See Comments Comments: makes agitated and mean Date Reviewed: 02/23/2020 Reviewed by: Marcelino A Roosevelt - Fully Assessed Reason for Visit: please assist with scheduleing appts [Other] Prescriptions as of 03/05/2020 Sig: PANTOPRAZOLE 40 MG TABLET,DEL* Take 1 tablet by mouth daily * SERTRALINE 100 MG TABLET Take 1 tablet by mouth once d* QUETIAPINE 100 MG TABLET Take 1 tablet by mouth once d* TRIAMCINOLONE ACETONIDE 0.1 %* Apply to affected areas 2-3 t * PROMETHAZINE 25 MG TABLET Take 1 tablet by mouth every * TOPIRAMATE 25 MG TABLET Take 1 po qhs x 1 week then i* BENZONATATE 200 MG CAPSULE Take 1 capsule by mouth three* ALBUTEROL SULFATE HFA 90 MCG/* Inhale 2 Puffs as instructed * Problem List As Of Date 03/05/2020 Noted Resolved Routine gynecological examination [Z01.419] 05/17/2008 Class: Chronic More... More... Family history of diabetes mellitus [Z83.3] 05/17/2008 More... Calculus of kidney [N20.0] 05/17/2008 More... Allergic rhinitis, cause unspecified [J30.9] 05/17/2008 More... Migraine without aura [G43.009] 05/17/2008 More... Smoker [F17.200] 05/17/2008 More... Impaired fasting glucose [R73.01] 05/17/2008 More... Benign liver cyst [K76.89] 05/24/2010 Class: Chronic More... Ovarian cyst [N83.209] 07/15/2012 Generalized anxiety disorder [F41.1] 03/31/2016 Reactive depression [F32.9] 03/31/2016 More... Adjustment insomnia [F51.02] 03/31/2016 Encounter for screening for cardiovascular diso*03/31/2016 Bilateral low back pain without sciatica [M54.5]06/18/2016 More... Pain in left hip [M25.552] 06/18/2016 Greater trochanteric bursitis [M70.60] 06/18/2016 Hydronephrosis of left kidney [N13.30] 02/05/2017 Hydroureter on left [N13.4] 02/05/2017 Right facial numbness [R20.0] 02/23/2017 Right upper extremity numbness [R20.0] 02/23/2017 Numbness of right lower extremity [R20.0] 02/23/2017 Weakness of right upper extremity [R29.898] 02/23/2017 Weakness of right lower extremity [R29.898] 02/23/2017 Vision blurred [H53.8] 02/23/2017 Lumbar spine pain [M54.5] 02/23/2017 Cervical spine pain [M54.2] 02/23/2017 Abnormal MRI, lumbar spine [R93.7] 02/23/2017 Hydroureter, left [N13.4] 03/30/2017 Lung nodules [R91.8] 01/22/2020 More... Encounter Status:Closed by MARRY VARGAS on 03/06/20 cnpn on 2020-02-28 CNPN Telephone ([facility]) Normal 02-28-2020 Kimberly SALLY Martinez ([id number]) 1980 F [place] Date Time Provider Department ([id number]) 02/28/20 [facility] During your visit today, we recorded the following informati on about you: Janneth Zhou, RN, RN 02/28/2020 10:41 AM Signed Pt calls for ER F/U appt. States she was at [facility] ER on 02/24 after reportidly passing out. States she went inside to put her swimsuit on and does not remember anything after that. States her friend told her that she fell over. Pt states she was told at ER that she has anemia and low BP. Pt states she is unable to come in for appt due to lack of transportation and insurance will not help her. Pt states she also has no way of doing a virtual visit. Scheduled phone call with PCP on 03/02. Marcelino Mejia MD 02/28/2020 10:48 AM Signed I need the ER report, labs and any radiology studies, EKG do ne. Also find out if patient uses a cell omero ne and if so then advise her she has a way to do a virtual visit on her cell. There is no charge fo r the mini. Branden Sanders Ma 02/28/2020 10:54 AM Signed Faxed rec request Branden Sanders Ma 02/28/2020 12:28 PM Signed Reports received and on pcp desk Branden Mejia MD 02/28/2020 1:55 PM Signed Let patient know I reviewed her ER report and her Hg was 1 1.8 and normal is 12-16 so not very anemic or low enough to cause one to pass out. I placed an order for a CBC in our lab for her to do she also has orders for carotid dopplers to check her blood flow though the carotids, stress test and a MRI of her Brain she needs to complete which wo uld also help in this w/u. She need to complete these. No office f/u required till studies complete d. Branden Sanders Ma 02/28/2020 2:14 PM Signed Spoke to patient who will get studies set up but right now d oes not have transportation. Patient aware nothing pcp can do at this edel e she needs to complete future studies. Branden Sanders Ma Allergies As of Date: 02/28/2020 Noted Allergy Reaction PENICILLINS 12/07/2009 2 - Rash ASA (SALICYLATES) 01/27/2011 14 - Other: See Comments Comments: ulcers CONTRAST DYE (IODINE) 05/17/2008 12 - Shortness of Breath FLAGYL (METRONIDAZOLE HCL) 03/11/2010 12 - Shortness of [place] th IBUPROFEN 06/18/2016 8 - GI Upset PREDNISONE 06/18/2016 14 - Other: See Comments Comments: makes agitated and mean Date Reviewed: 02/23/2020 Reviewed by: Marcelino Mejia - Fully Assessed Reason for Visit: ER F/U [41] Prescriptions as of 02/28/2020 Sig: SERTRALINE 100 MG TABLET Take 1 tablet by mouth once d* QUETIAPINE 100 MG TABLET Take 1 tablet by mouth once d* TRIAMCINOLONE ACETONIDE 0.1 %* Apply to affected areas 2-3 t * NYSTATIN 100,000 UNIT/ML ORAL* Take 5 mL by mouth four times * PROMETHAZINE 25 MG TABLET Take 1 tablet by mouth every * TOPIRAMATE 25 MG TABLET Take 1 po qhs x 1 week then i* BENZONATATE 200 MG CAPSULE Take 1 capsule by mouth three* ALBUTEROL SULFATE HFA 90 MCG/* Inhale 2 Puffs as instructed * Problem List As Of Date 02/28/2020 Noted Resolved Routine gynecological examination [Z01.419] 05/17/2008 Class: Chronic More... More... Family history of diabetes mellitus [Z83.3] 05/17/2008 More... Calculus of kidney [N20.0] 05/17/2008 More... Allergic rhinitis, cause unspecified [J30.9] 05/17/2008 More... Migraine without aura [G43.009] 05/17/2008 More... Smoker [F17.200] 05/17/2008 More... Impaired fasting glucose [R73.01] 05/17/2008 More... Benign liver cyst [K76.89] 05/24/2010 Class: Chronic More... Ovarian cyst [N83.209] 07/15/2012 Generalized anxiety disorder [F41.1] 03/31/2016 Reactive depression [F32.9] 03/31/2016 More... Adjustment insomnia [F51.02] 03/31/2016 Encounter for screening for cardiovascular diso*03/31/2016 Bilateral low back pain without sciatica [M54.5]06/18/2016 More... Pain in left hip [M25.552] 06/18/2016 Greater trochanteric bursitis [M70.60] 06/18/2016 Hydronephrosis of left kidney [N13.30] 02/05/2017 Hydroureter on left [N13.4] 02/05/2017 Right facial numbness [R20.0] 02/23/2017 Right upper extremity numbness [R20.0] 02/23/2017 Numbness of right lower extremity [R20.0] 02/23/2017 Weakness of right upper extremity [R29.898] 02/23/2017 Weakness of right lower extremity [R29.898] 02/23/2017 Vision blurred [H53.8] 02/23/2017 Lumbar spine pain [M54.5] 02/23/2017 Cervical spine pain [M54.2] 02/23/2017 Abnormal MRI, lumbar spine [R93.7] 02/23/2017 Hydroureter, left [N13.4] 03/30/2017 Lung nodules [R91.8] 01/22/2020 More... Encounter Status:Closed by BRANDEN SANDERS MA on 02/28/20 xr chest 1 view on 2020-02-25 XR CHEST 1 VIEW ORIGINAL Normal 02-25-2020 [facility] XR CHEST 1 VIEW [place] ([place]) ([id number]) CLINICAL STATEMENT: Chest pain COMPARISON: 04/06/2006 FINDINGS: Study is mildly co mpromised due to technique and body habitus. The cardiomediastinal contours are normal. There is shallow depth of inspiration. There is no consolidation, vascular congestion, pleural effusion, or pneumo thorax. There are no acute abnormalities to osseous structures. IMPRESSION: No acute radiographic findings. I have personally reviewed t he images of this examination and agree with the resident's findings and interpretation. Interpreted By: Ruben Navarrete MD Preliminary Report By: Alice Salas DO Electronically Signed By: Ruben Navarrete MD Dictated Date: 02/25/2020 4:26:22 PM Prelim Date: 02/25/2020 4:27:23 PM Sign Date: 02/25/2020 4:40:28 PM Ordering Provider:Chris corbett on 2020-02-25 Troponin I.cardiac <0.020 0.000-0.040 ng/mL Normal 0 [email or web address] [Mass/Vol] [facility] ([place]) ([id number]) Comment: Result Comment: Troponin I r eference range: 0.00-0.040 ng/mL Negative an d non-diagnostic. >0.040 ng/mL Consistent with cardiac damage, increased clinical risk and possibility of myocardial in farction. Serial measurements, a rise & fall in test results, clinical histo ry, appropriate symptoms and/or ECG changes may help assess possibility of NV. *Other non-acute coronary sy ndrome conditions such as CHF, myoc arditis, pulmonary emboli, sepsis and cardiac surgery could result in myoc ardial damage and increased troponi n levels. Performed By: #### CBC, ADIF F, ANEU, BMP, GFR #### [address] [id number] mg on 2020-02-25 Magnesium [Mass/Vol] 2.0 1.8-2.4 mg/dL Normal 0 [facility] ([place]) (0000 0) Comment: Performed By: #### CBC, ADIF F, ANEU, BMP, GFR #### [address] [address] lip on 2020-02-25 Lipase Level [phone] U/L High 02-25-2020 [facility] ([place]) ([id number]) Comment: Performed By: #### CBC, ADIF F, ANEU, BMP, GFR #### [address] [address] cmp on 2020-02-25 Albumin [Mass/Vol] 4.1 3.5-5.0 G/dL Normal 02-25-2020 [facility] ([place]) ([id number]) Comment: Performed By: #### CBC, ADIF F, ANEU, BMP, GFR #### [address] [address] Albumin/Globulin [Mass 1.2 1.1-2.5 ratio Normal [address] [place] [address]] [facility] ([place]) ([id number]) Comment: Performed By: #### CBC, ADIF F, ANEU, BMP, GFR #### [address] [address] ALP [Catalytic activity/Vol] 98 40-135 U/L Normal 0 02-25-2020 [facility] ([place]) (0000 0) Comment: Performed By: #### CBC, ADIF F, ANEU, BMP, GFR #### [address] [address] ALT [Catalytic activity/Vol] 30 10-35 U/L Normal 0 02-25-2020 [facility] ([place]) (0000 0) Comment: Performed By: #### CBC, ADIF F, ANEU, BMP, GFR #### [address] [address] AST [Catalytic activity/Vol] 15 10-40 U/L Normal 0 02-25-2020 [facility] ([place]) (0000 0) Comment: Performed By: #### CBC, ADIF F, ANEU, BMP, GFR #### [address] [address] Bili Total 0.4 0.2-1.0 mg/dL Normal 02-25-2020 [facility] [place] (23783) Comment: Result Comment: Use of this assay is not recommended for patients undergoing treatment with eltrombopag d ue to the potential for falsely elevated results. Performed By: #### CBC, ADIF F, ANEU, BMP, GFR #### [address] [address] Calcium [Mass/Vol] 8.9 8.4-10.2 mg/dL Normal 02-25-2020 [facility] [place] (0000 0) Comment: Performed By: #### CBC, ADIF F, ANEU, BMP, GFR #### [address] [address] Chloride [Moles/Vol] 104 98-107 mmol/L Normal 0 [facility] [place] (0000 0) Comment: Performed By: #### CBC, ADIF F, ANEU, BMP, GFR #### [address] [address] CO2 [Moles/Vol] 28 22-29 mmol/L Normal 02-25-2020 [facility] ([place]) (31142) Comment: Performed By: #### CBC, ADIF F, ANEU, BMP, GFR #### [address] [address] Creatinine [Mass/Vol] 1.01 0.55-1.02 mg/dL Normal 02-25-20 20 [facility] [place] (59025) Comment: Performed By: #### CBC, ADIF F, ANEU, BMP, GFR #### [address] [address] Electrolyte Balance 9.0 mEq/L Normal 02-25-2020 [facility] [place] (49927) Comment: Performed By: #### CBC, ADIF F, ANEU, BMP, GFR #### [address] [address] Globulin (S) [Mass/Vol] 3.4 G/dL Normal 2019 [facility] [place] (59791) Comment: Performed By: #### CBC, ADIF F, ANEU, BMP, GFR #### [address] [address] Glucose [Mass/Vol] 112 70-105 mg/dL High 02-25-2020 [facility] [place] (72571) Comment: Performed By: #### CBC, ADIF F, ANEU, BMP, GFR #### [address] [address] Potassium [Moles/Vol] 3.7 3.5-5.1 mmol/L Normal 02-25-20 [facility] [place] (0000 0) Comment: Performed By: #### CBC, ADIF F, ANEU, BMP, GFR #### [address] [address] Protein [Mass/Vol] 7.5 6.4-8.2 G/dL Normal 02-25-2020 [facility] [place] (42657) Comment: Performed By: #### CBC, ADIF F, ANEU, BMP, GFR #### [address] [address] Sodium [Moles/Vol] 141 136-145 mmol/L Normal 02-25-2020 [facility] [place] (0000 0) Comment: Performed By: #### CBC, ADIF F, ANEU, BMP, GFR #### [address] [address] Urea nitrogen [Mass/Vol] 21 7-18 mg/dL High 02-24 [facility] ([place]) (46496) Comment: Performed By: #### CBC, ADIF F, ANEU, BMP, GFR #### [address] [address] Urea nitrogen/Creatinine [Mass 21 7-27 ratio Normal 02-25-2020 [facility]] [facility] ([place]) (24574) Comment: Performed By: #### CBC, ADIF F, ANEU, BMP, GFR #### [address] [address] cbc on 2020-02-25 Erythrocyte distribution 14.9 11.5-14.5 % High 02-24 [facility] width (RBC) [Ratio] ([place]) (22929) Comment: Performed By: #### CBC, ADIF F, ANEU, BMP, GFR #### [place] [address] Hematocrit (Bld) [Volume 35.9 37.0-47.0 % Low 02-24 [facility] fraction] ([place]) (0000 0) Comment: Performed By: #### CBC, ADIF F, ANEU, BMP, GFR #### [place] [address] Hemoglobin (Bld) 11.8 12.0-16.0 G/dL Low 02-25-2020 [facility] [Mass/Vol] ([place]) (000 00) Comment: Performed By: #### CBC, ADIF F, ANEU, BMP, GFR #### [place] [id number] MCH (RBC) [Entitic mass] 29.5 27.0-31.2 pg Normal 02-24 [facility] ([place]) (0000 0) Comment: Performed By: #### CBC, ADIF F, ANEU, BMP, GFR #### [place] [id number] MCHC (RBC) [Mass/Vol] 32.9 33.0-37.0 G/dL Low 02-25-20 20 [facility] ([place] (0000 0) Comment: Performed By: #### CBC, ADIF F, ANEU, BMP, GFR #### [place] [id number] MCV (RBC) [Entitic vol] 89.9 80.0-94.0 fL Normal 2019 [facility] ([place]) (0000 0) Comment: Performed By: #### CBC, ADIF F, ANEU, BMP, GFR #### [place] [address] Platelet mean volume 9.2 7.4-10.4 fL Normal 0 [facility] (d) [Entitic vol] ([place]) (99026) Comment: Performed By: #### CBC, ADIF F, ANEU, BMP, GFR #### [place] [address] Platelets (Bld) [#/Vol] 265 130-400 10 3/mcL Normal 2019 [facility] ([place]) (54060) Comment: Performed By: #### CBC, ADIF F, ANEU, BMP, GFR #### [place] [address] RBC (Bld) [#/Vol] 4.00 4.20-5.40 10 6/mcL Low 02-25-2020 [facility] ([place]) (0000 0) Comment: Performed By: #### CBC, ADIF F, ANEU, BMP, GFR #### [place] [address] WBC (Bld) [#/Vol] 9.90 4.60-10.80 10 3/mcL Normal 02-25-2020 [facility] ([place]) (74792) Comment: Performed By: #### CBC, ADIF F, ANEU, BMP, GFR #### [place] [address] .neuabs on Neutrophils (Bld) 6.00 2.85-6.16 10 3/mcL Normal 02-25-2020 [facility] [#/Vol] [facility] ([place]) (63333) Comment: Performed By: #### CBC, ADIF F, ANEU, BMP, GFR #### [address] [address] .gfr on 2020-02-25 GFR Non- 61 ml/min/1.73sqm Normal 02-25-2020 [facility] ([place]) (58750) Comment: Result Comment: GFR Population mean for Afri can [place], Non- Americans Ages 20-29 = 116 mL/min/1.73 sq.m. Ages 30-39 = 107 mL/min/1.73 sq.m. Ages 40-49 = 99 mL/min/1.73 sq.m. Ages 50-59 = 93 mL/min/1.73 sq.m. Ages 60-69 = 85 mL/min/1.73 sq.m. Ages 70+ = 75 mL/min/1.73 sq .m. Chronic Kidney Disease: Less than 60 mL/min/1.73 square meters End Stage Renal Disease: Les s than 15 mL/min/1.73 square meters Performed By: #### CBC, ADIF F, ANEU, BMP, GFR #### [address] [address] GFR 74 ml/min/1.73sqm Normal 02-12 [facility] ([place]) (0000 0) Comment: Result Comment: GFR Population mean for Afri can [place], Non- Americans Ages 20-29 = 116 mL/min/1.73 sq.m. Ages 30-39 = 107 mL/min/1.73 sq.m. Ages 40-49 = 99 mL/min/1.73 sq.m. Ages 50-59 = 93 mL/min/1.73 sq.m. Ages 60-69 = 85 mL/min/1.73 sq.m. Ages 70+ = 75 mL/min/1.73 sq .m. Chronic Kidney Disease: Less than 60 mL/min/1.73 square meters End Stage Renal Disease: Les s than 15 mL/min/1.73 square meters Performed By: #### CBC, ADIF F, ANEU, BMP, GFR #### [address] [address] .auto diff on 02-24 Ammonia (P) [Mass/Vol] 0.60 0.15-1.00 10 3/mcL Normal 020 [facility] ([place]) (74038) Comment: Performed By: #### CBC, ADIF F, ANEU, BMP, GFR #### [address] [address] Basophils (Bld) 0.00 0.00-0.19 10 3/mcL Normal 02-25-2020 [facility] [#/Vol] [facility] ([place]) (67448) Comment: Performed By: #### CBC, ADIF F, ANEU, BMP, GFR #### [address] [address] Basophils/100 WBC (Bld) 0.2 0.0-2.5 % Normal 2019 [facility] ([place]) (0000 0) Comment: Performed By: #### CBC, ADIF F, ANEU, BMP, GFR #### [address] [address] Eosinophils (Bld) 0.30 0.00-0.40 10 3/mcL Normal 02-25-2020 [facility] [#/Vol] [facility] ([place]) (54332) Comment: Performed By: #### CBC, ADIF F, ANEU, BMP, GFR #### [address] [address] Eosinophils/100 WBC (Bld) 3.5 0.0-7.0 % Normal 02-12 [facility] ([place]) (0000 0) Comment: Performed By: #### CBC, ADIF F, ANEU, BMP, GFR #### [address] [address] Lymphocytes (Bld) 2.90 0.77-3.85 10 3/mcL Normal 02-25-2020 [facility] [#/Vol] [facility] ([place]) (70955) Comment: Performed By: #### CBC, ADIF F, ANEU, BMP, GFR #### [address] [address] Lymphocytes/100 WBC (Bld) 28.9 10.0-50.0 % Normal 02-12 [facility] ([place]) (93131) Comment: Performed By: #### CBC, ADIF F, ANEU, BMP, GFR #### [address] [address] Monocytes/100 WBC (Bld) 6.3 1.7-13.0 % Normal 2019 [facility] ([place]) (0000 0) Comment: Performed By: #### CBC, ADIF F, ANEU, BMP, GFR #### [facility] [address] [place] [address] Neutrophils/100 WBC (Bld) 61.1 37.0-80.0 % Normal 02-12 [facility] ([place]) (57474) Comment: Performed By: #### CBC, ADIF F, ANEU, BMP, GFR #### [facility] [address] [place] [address] progress on 2020-02 PROGRESS HNO ID: [id number] Normal 02-23-2020 [facility] Author: Marcelino Mejia Kimberly ([id number]) Service: ? Author Type: Physician Type: Progress Notes Filed: 02/23/2020 12:21 PM Note Text: This Team Access Model visit is a phone encounter. It requir ed patient-provider interaction for the medical decision making as documented below. The patient is identified by name and birthday. Patient loca tion: [place] The patient is aware that I am not fully able to assess symp toms and do a full physical exam including vital signs in the office at th is time.The patient consented to this type of encounter since it was per formed by phone / virtually due to the COVID-19 epidemic as an effort to protect patients and minimize exposure. Chief Complaint Patient presents with: Mouth/Lip Problem: x 1 month HPI Sally Mcgregor is a 39 year old female who presents here to day for mouth pain. Patient has a ulcer on the right side of the tongue caused f rom a jagged molar on the right lower side posteriorly. Patient thinks ul cer maybe slightly larger and is very tender. Says she can not get in with a dentis for a month. Also has no consistent way of transportation.. Past medical history, appointments, medications, allergies r eviewed. No changes. ROS: Pertinent positives/ negatives: no fevers or chills. increas ed tongue pain. PHYSICAL EXAMINATION LMP 08/10/2006 General: Alert and oriented, no distress, pleasant and coope rative. Lungs: Speaking in complete, clear sentences with no distres s or wheezing. Sounds relaxed. Speech is normal. Data reviewed A/P ASSESSMENT/PLAN: 1. Tongue ulcer - ICD9: 529.0, ICD10: K14.0 - Secondary to poor dentition with a jagged tooth on that si de of the mouth - Patient advised she can get a mouth guard to wear to reduc e continued irritation to the right side of her tongue - Advised need to get the tooth pulled. Marcelino Mejia MD Phone time: 5 min cnpn on 2020-02-20 [facility] Telephone (FAMPWS) Normal 02-20-2020 [facility] SALLY MCGREGOR ([id number]) 1980 [facility] Date Time Provider Department ([id number]) 02/20/20 MARCELINO MEJIA During your visit today, we recorded the following informati on about you: Lexy Tapia RN 02/20/2020 8:40 AM Signed fyi- Patient calls to report to PCP that she was back in [facility] ER over weekend due to pain from Pancreatitis. Her level was 800, so they s ent me home. States she received Oxycodone and report s that it is not doing much to relieve her pain and wanted PCP aware that she was in ER again. Patient did not have phone number of [facility] to schedule f ollow up. This nurse gave number to patient and she will call t o schedule appointment today. Lexy Mejia MD 02/20/2020 9:07 AM Signed Noted. Allergies As of Date: 02/20/2020 Noted Allergy Reaction PENICILLINS 12/07/2009 2 - Rash ASA (SALICYLATES) 01/27/2011 14 - Other: See Comments Comments: ulcers CONTRAST DYE (IODINE) 05/17/2008 12 - Shortness of Breath FLAGYL (METRONIDAZOLE HCL) 03/11/2010 12 - Shortness of [place] th IBUPROFEN 06/18/2016 8 - GI Upset PREDNISONE 06/18/2016 14 - Other: See Comments Comments: makes agitated and mean Date Reviewed: 02/15/2020 Reviewed by: Marcelino Mejia - Fully Assessed Reason for Visit: condition update [Other] Prescriptions as of 02/20/2020 Sig: TRIAMCINOLONE ACETONIDE 0.1 %* Apply to affected areas 2-3 t * NYSTATIN 100,000 UNIT/ML ORAL* Take 5 mL by mouth four times * PROMETHAZINE 25 MG TABLET Take 1 tablet by mouth every * TOPIRAMATE 25 MG TABLET Take 1 po qhs x 1 week then i* CLINDAMYCIN HCL 300 MG CAPSULE Take 1 capsule by mouth four * Patient not taking: Reported on 02/14/2020 SERTRALINE 50 MG TABLET TAKE ONE HALF (1/2) TABLET BY* QUETIAPINE ORAL QUEtiapine Seroquel XR Active* BENZONATATE 200 MG CAPSULE Take 1 capsule by mouth three* ALBUTEROL SULFATE HFA 90 MCG/* Inhale 2 Puffs as instructed * Problem List As Of Date 02/20/2020 Noted Resolved Routine gynecological examination [Z01.419] 05/17/2008 Class: Chronic More... More... Family history of diabetes mellitus [Z83.3] 05/17/2008 More... Calculus of kidney [N20.0] 05/17/2008 More... Allergic rhinitis, cause unspecified [J30.9] 05/17/2008 More... Migraine without aura [G43.009] 05/17/2008 More... Smoker [F17.200] 05/17/2008 More... Impaired fasting glucose [R73.01] 05/17/2008 More... Benign liver cyst [K76.89] 05/24/2010 Class: Chronic More... Ovarian cyst [N83.209] 07/15/2012 Generalized anxiety disorder [F41.1] 03/31/2016 Reactive depression [F32.9] 03/31/2016 More... Adjustment insomnia [F51.02] 03/31/2016 Encounter for screening for cardiovascular diso*03/31/2016 Bilateral low back pain without sciatica [M54.5]06/18/2016 More... Pain in left hip [M25.552] 06/18/2016 Greater trochanteric bursitis [M70.60] 06/18/2016 Hydronephrosis of left kidney [N13.30] 02/05/2017 Hydroureter on left [N13.4] 02/05/2017 Right facial numbness [R20.0] 02/23/2017 Right upper extremity numbness [R20.0] 02/23/2017 Numbness of right lower extremity [R20.0] 02/23/2017 Weakness of right upper extremity [R29.898] 02/23/2017 Weakness of right lower extremity [R29.898] 02/23/2017 Vision blurred [H53.8] 02/23/2017 Lumbar spine pain [M54.5] 02/23/2017 Cervical spine pain [M54.2] 02/23/2017 Abnormal MRI, lumbar spine [R93.7] 02/23/2017 Hydroureter, left [N13.4] 03/30/2017 Lung nodules [R91.8] 01/22/2020 More... Encounter Status:Closed by MARCELINO [facility]IA on 02[facility]20/[facility] Normal 02-20-2020 [facility] SALLY MCGREGOR ([id number]) 1980 [facility] Date Time Provider Department ([id number]) 02/20/20 MARCELINO MEJIA [facility] During your visit today, we recorded the following informati on about you: Christopher Carcamo RN 02/20/2020 9:48 AM Signed Patient phoned crying and distraught, stating [facility], can not get her in until March. States she cannot take this pain anymore, her insurance will not cover anyone in [facility] When she was in the hospital morphine and percocet didn't touch her pain, and dilaudid only helped for a few se conds. The way patient was crying and talking non-stop, this nurse thought her pain level was at a max, and advised her to return to ER, and maybe pancreas levels are higher than they were on Sat. Patient stated she is not having the pancreatitis pain right now, she is upset because [facility] I cannot see her until March. Asking if there is anything pcp can do to get her in sooner? Ple ase phone patient with reply. Marcelino Mejia MD 02/20/2020 10:15 AM Signed Let patient know the only op tions ar for her to go to [facility] ER to see if will be admitted and get Gastro eval there where they have it or I can put in a general referral for the system but that could be anywhere in the system including main campus. Edwina Rc HERNANDEZ 02/20/2020 10:43 AM Signed Pt calls back and is very upset because she said she has no one to take her to [place]. She said when she goes to [facility] the y just drug her up and give her fluids and then sends her home. They'll do lab work an they never d o any other testing. Pt is crying on phone stating there's got to be a reason for this pain and no one will find out what it is. Pt states, I can 't keep doing this. Pt reports they sent her home with #5 ta bs percocet and they don't really help with the pain. Pt reports she can't get into specialist unti l March. Pt reports she can't take the pain until . Pt is asking if there is something stronger to help with her pain. Edwina Oliver LPN 02/20/2020 11:48 AM Signed Patient calling very upset. Crying. She cannot get transport ation to [facility]. Insurance does not cover [facility] and do es not want to go back to [place] because they will just send h er home with meds and dope me up for 3-4 days. Johnathon STOELO cannot get her an appointment until March . Will route to clerical gastro for schedu ling within [facility] possibly [facility]. Marcelino Mejia MD 02/20/2020 12:34 PM Signed noted Augustina Vera RN FACTORY LABORER.JAKI 02/20/2020 12:40 PM Signed I'd suggest that she go to [facility] today. it w ould not be good patient care to have her seen by me at this point. Augustina Vera RN A PRN.JAKI Zhou RN, RN 02/20/2020 12:43 PM Signed Pt calls back, upset and crying stating her pain is so bad she doesn't know what else to do. States gastro here does not take her insurance and she has no way of getting to [facility]. Pt states she does not th ink they take her insurance either. Spoke with PCP who suggested [facility]. Relayed message to pt, pt started yelling stating she has no transp ortation. States if she calls ambulance they will only take her within [facility]. Sta los her boyfriend can't take her anywhere. States if she goes back to ER they are just going to send her home. Pt ended phone call. Janneth Zhou, RN, RN 02/20/2020 1:03 PM Signed Pt calls back again. States PCP has to do something. She s tates she goes to the ER they give her morphine and send h er home. States she keeps getting sent away. States she was sent away of Thursday and she was sent away for her levels not being high enough. States if she keeps go ing back then they are going to redline her and she will not be able to go back at all. Pt states she can't afford to be admitted because they are only going to keep her for a few days, give her morphine which doesn't work and then send her home. Pt upset that hospital does not do any testing on her. St ates she is in so much pain she can't eat and she can't afford a hospital bill. A dvised pt to take care of herself and her pain, do not focus on a potential hospital bill. By the end of the call, pt agreeable to go back to ER. Asking if PCP would write a letter to child support stating she is unable to work at this time due to illness. Asking letter to be faxed to [phone]. Marcelino Mejia MD 02/20/2020 2:38 PM Signed Let patient know ER report from 02/18/2020 was reviewed and th e ER Physician wanted to keep but she preferred to go home and see if she c ould manage it there. Lorenzo Vu 02/20/2020 4:06 PM Signed Patient returned call, stating she went to [facility] ER today an d they discharged her because her level is less than 800. Reques ting something for pain, that Percocet helped some in past. No transportation to go anywhe re but [place] (?long term care social worker to help with transportat ion). Does not have access for virtual visit so has to wait till can get in to GI. . Gave patient message from pcp and patient says s he did not prefer to go home, that doctor discharged her saying she did not need to stay. Marcelino Mejia MD 02/20/2020 4:44 PM Signed Let patient know I will not be prescribing any narcotics wit h concern for multiple pain scripts from [facility] and the fact that she just got a script from Dr. Maddi Lucero for 60 Oxycodone who is also a primary care doctor. In regards to her letter for [employer]sten what I can write ss that your were seen in the office by me on 02/15/2020 fo r f/u of hospital stay for pancreatitis and that she has had several return ER vi sits for pain the last one being on 02/21/2020 and at this time stud ies indicate the inflammation is resolving but should not return to work till next Thursday02/27/2020. Sallie Benitez LPN 02/20/2020 4:47 PM Signed Attempted to reach patient but no answer and mailbox is full . Edwina Tatum LPN 02/20/2020 5:02 PM Signed Pt reports it is child support not JFS. Pt reports she cannot work while she is in this much pain and can't see the specialist darryl bro March. Advised pt per Dr's note that he can write that same letter for Child Support but that is what is going to be written. Edwina Mejia MD 02/20/2020 5:21 PM Signed Letter ready to be faxed to [phone]. Branden Sanders Ma 02/21/2020 8:24 AM Signed Faxed letter Branden Sanders Ma Allergies As of Date: 02/20/2020 Noted Allergy Reaction PENICILLINS 12/07/2009 2 - Rash ASA (SALICYLATES) 01/27/2011 14 - Other: See Comments Comments: ulcers CONTRAST DYE (IODINE) 05/17/2008 12 - Shortness of Breath FLAGYL (METRONIDAZOLE HCL) 03/11/2010 12 - Shortness of [place] th IBUPROFEN 06/18/2016 8 - GI Upset PREDNISONE 06/18/2016 14 - Other: See Comments Comments: makes agitated and mean Date Reviewed: 02/15/2020 Reviewed by: Marcelino Mejia - Fully Assessed Reason for Visit: Pancreatitis [581] Prescriptions as of 02/20/2020 Sig: TRIAMCINOLONE ACETONIDE 0.1 %* Apply to affected areas 2-3 t * NYSTATIN 100,000 UNIT/ML ORAL* Take 5 mL by mouth four times * PROMETHAZINE 25 MG TABLET Take 1 tablet by mouth every * TOPIRAMATE 25 MG TABLET Take 1 po qhs x 1 week then i* CLINDAMYCIN HCL 300 MG CAPSULE Take 1 capsule by mouth four * Patient not taking: Reported on 02/14/2020 SERTRALINE 50 MG TABLET TAKE ONE HALF (2) TABLET BY* QUETIAPINE ORAL QUEtiapine Seroquel XR Active* BENZONATATE 200 MG CAPSULE Take 1 capsule by mouth three* ALBUTEROL SULFATE HFA 90 MCG/* Inhale 2 Puffs as instructed * Problem List As Of Date 02/20/2020 Noted Resolved Routine gynecological examination [Z01.419] 05/17/2008 Class: Chronic More... More... Family history of diabetes mellitus [Z83.3] 05/17/2008 More... Calculus of kidney [N20.0] 05/17/2008 More... Allergic rhinitis, cause unspecified [J30.9] 05/17/2008 More... Migraine without aura [G43.009] 05/17/2008 More... Smoker [F17.200] 05/17/2008 More... Impaired fasting glucose [R73.01] 05/17/2008 More... Benign liver cyst [K76.89] 05/24/2010 Class: Chronic More... Ovarian cyst [N83.209] 07/15/2012 Generalized anxiety disorder [F41.1] 03/31/2016 Reactive depression [F32.9] 03/31/2016 More... Adjustment insomnia [F51.02] 03/31/2016 Encounter for screening for cardiovascular diso*03/31/2016 Bilateral low back pain without sciatica [M54.5]06/18/2016 More... Pain in left hip [M25.552] 06/18/2016 Greater trochanteric bursitis [M70.60] 06/18/2016 Hydronephrosis of left kidney [N13.30] 02/05/2017 Hydroureter on left [N13.4] 02/05/2017 Right facial numbness [R20.0] 02/23/2017 Right upper extremity numbness [R20.0] 02/23/2017 Numbness of right lower extremity [R20.0] 02/23/2017 Weakness of right upper extremity [R29.898] 02/23/2017 Weakness of right lower extremity [R29.898] 02/23/2017 Vision blurred [H53.8] 02/23/2017 Lumbar spine pain [M54.5] 02/23/2017 Cervical spine pain [M54.2] 02/23/2017 Abnormal MRI, lumbar spine [R93.7] 02/23/2017 Hydroureter, left [N13.4] 03/30/2017 Lung nodules [R91.8] 01/22/2020 More... Letter Text Encounter Status:Closed by BRANDEN SANDERS MA on 02/21/20 [facility] Normal 02-20-2020 Kimberly SALLY Matrinez ([id number]) 1980 [facility] Date Time Provider Department ([id number]) 02/20/20 [facility] During your visit today, we recorded the following informati on about you: Melanie Debby HERNANDEZ 02/20/2020 2:25 PM Signed Patient calling wants note sent to PCP, she is currently i n [facility] ER. Patient said she has been sitting there for about 20 minutes now. Marcelino Mejia MD 02/20/2020 2:35 PM Signed Noted. Allergies As of Date: 02/20/2020 Noted Allergy Reaction PENICILLINS 12/07/2009 2 - Rash ASA (SALICYLATES) 01/27/2011 14 - Other: See Comments Comments: ulcers CONTRAST DYE (IODINE) 05/17/2008 12 - Shortness of Breath FLAGYL (METRONIDAZOLE HCL) 03/11/2010 12 - Shortness of [place] th IBUPROFEN 06/18/2016 8 - GI Upset PREDNISONE 06/18/2016 14 - Other: See Comments Comments: makes agitated and mean Date Reviewed: 02/15/2020 Reviewed by: Marcelino Mejia - Fully Assessed Reason for Visit: Patient Update [1234] Prescriptions as of 02/20/2020 Sig: TRIAMCINOLONE ACETONIDE 0.1 %* Apply to affected areas 2-3 t * NYSTATIN 100,000 UNIT/ML ORAL* Take 5 mL by mouth four times * PROMETHAZINE 25 MG TABLET Take 1 tablet by mouth every * TOPIRAMATE 25 MG TABLET Take 1 po qhs x 1 week then i* CLINDAMYCIN HCL 300 MG CAPSULE Take 1 capsule by mouth four * Patient not taking: Reported on 02/14/2020 SERTRALINE 50 MG TABLET TAKE ONE HALF (1/2) TABLET BY* QUETIAPINE ORAL QUEtiapine Seroquel XR Active* BENZONATATE 200 MG CAPSULE Take 1 capsule by mouth three* ALBUTEROL SULFATE HFA 90 MCG/* Inhale 2 Puffs as instructed * Problem List As Of Date 02/20/2020 Noted Resolved Routine gynecological examination [Z01.419] 05/17/2008 Class: Chronic More... More... Family history of diabetes mellitus [Z83.3] 05/17/2008 More... Calculus of kidney [N20.0] 05/17/2008 More... Allergic rhinitis, cause unspecified [J30.9] 05/17/2008 More... Migraine without aura [G43.009] 05/17/2008 More... Smoker [F17.200] 05/17/2008 More... Impaired fasting glucose [R73.01] 05/17/2008 More... Benign liver cyst [K76.89] 05/24/2010 Class: Chronic More... Ovarian cyst [N83.209] 07/15/2012 Generalized anxiety disorder [F41.1] 03/31/2016 Reactive depression [F32.9] 03/31/2016 More... Adjustment insomnia [F51.02] 03/31/2016 Encounter for screening for cardiovascular diso*03/31/2016 Bilateral low back pain without sciatica [M54.5]06/18/2016 More... Pain in left hip [M25.552] 06/18/2016 Greater trochanteric bursitis [M70.60] 06/18/2016 Hydronephrosis of left kidney [N13.30] 02/05/2017 Hydroureter on left [N13.4] 02/05/2017 Right facial numbness [R20.0] 02/23/2017 Right upper extremity numbness [R20.0] 02/23/2017 Numbness of right lower extremity [R20.0] 02/23/2017 Weakness of right upper extremity [R29.898] 02/23/2017 Weakness of right lower extremity [R29.898] 02/23/2017 Vision blurred [H53.8] 02/23/2017 Lumbar spine pain [M54.5] 02/23/2017 Cervical spine pain [M54.2] 02/23/2017 Abnormal MRI, lumbar spine [R93.7] 02/23/2017 Hydroureter, left [N13.4] 03/30/2017 Lung nodules [R91.8] 01/22/2020 More... Encounter Status:Closed by MARCELINO MEJIA on [facility] 2020[facility]-16 [facility] Telephone (UCWSTR) Normal 02-16-2020 Kimberly SALLY Martinez ([id number]) 1980 F Kimber[place] Date Time Provider Department ([id number]) 02/16/20 JESSICA JESUS) [facility] During your visit today, we recorded the following informati on about you: Jessica Jesus PA-C 02/16/2020 12:39 PM Signed Please call pat and let know her fungal swab of her ul cer came back positive for fungus/thrush. Continue the nystatin mouthwash and with dental appointment. Katharine Seay Ma 02/16/2020 1:56 PM Signed Patient given results and verbalized understanding of instru ctions given. Katharine Seay Ma Allergies As of Date: 02/16/2020 Noted Allergy Reaction PENICILLINS 12/07/2009 2 - Rash ASA (SALICYLATES) 01/27/2011 14 - Other: See Comments Comments: ulcers CONTRAST DYE (IODINE) 05/17/2008 12 - Shortness of Breath FLAGYL (METRONIDAZOLE HCL) 03/11/2010 12 - Shortness of [place] th IBUPROFEN 06/18/2016 8 - GI Upset PREDNISONE 06/18/2016 14 - Other: See Comments Comments: makes agitated and mean Date Reviewed: 02/15/2020 Reviewed by: Marcelino Mejia - Fully Assessed Reason for Visit: Results [95] Prescriptions as of 02/16/2020 Sig: TRIAMCINOLONE ACETONIDE 0.1 %* Apply to affected areas 2-3 t * NYSTATIN 100,000 UNIT/ML ORAL* Take 5 mL by mouth four times * PROMETHAZINE 25 MG TABLET Take 1 tablet by mouth every * TOPIRAMATE 25 MG TABLET Take 1 po qhs x 1 week then i* CLINDAMYCIN HCL 300 MG CAPSULE Take 1 capsule by mouth four * Patient not taking: Reported on 02/14/2020 SERTRALINE 50 MG TABLET TAKE ONE HALF (1/2) TABLET BY* QUETIAPINE ORAL QUEtiapine Seroquel XR Active* BENZONATATE 200 MG CAPSULE Take 1 capsule by mouth three* ALBUTEROL SULFATE HFA 90 MCG/* Inhale 2 Puffs as instructed * Problem List As Of Date 02/16/2020 Noted Resolved Routine gynecological examination [Z01.419] 05/17/2008 Class: Chronic More... More... Family history of diabetes mellitus [Z83.3] 05/17/2008 More... Calculus of kidney [N20.0] 05/17/2008 More... Allergic rhinitis, cause unspecified [J30.9] 05/17/2008 More... Migraine without aura [G43.009] 05/17/2008 More... Smoker [F17.200] 05/17/2008 More... Impaired fasting glucose [R73.01] 05/17/2008 More... Benign liver cyst [K76.89] 05/24/2010 Class: Chronic More... Ovarian cyst [N83.209] 07/15/2012 Generalized anxiety disorder [F41.1] 03/31/2016 Reactive depression [F32.9] 03/31/2016 More... Adjustment insomnia [F51.02] 03/31/2016 Encounter for screening for cardiovascular diso*03/31/2016 Bilateral low back pain without sciatica [M54.5]06/18/2016 More... Pain in left hip [M25.552] 06/18/2016 Greater trochanteric bursitis [M70.60] 06/18/2016 Hydronephrosis of left kidney [N13.30] 02/05/2017 Hydroureter on left [N13.4] 02/05/2017 Right facial numbness [R20.0] 02/23/2017 Right upper extremity numbness [R20.0] 02/23/2017 Numbness of right lower extremity [R20.0] 02/23/2017 Weakness of right upper extremity [R29.898] 02/23/2017 Weakness of right lower extremity [R29.898] 02/23/2017 Vision blurred [H53.8] 02/23/2017 Lumbar spine pain [M54.5] 02/23/2017 Cervical spine pain [M54.2] 02/23/2017 Abnormal MRI, lumbar spine [R93.7] 02/23/2017 Hydroureter, left [N13.4] 03/30/2017 Lung nodules [R91.8] 01/22/2020 More... Encounter Status:Closed by JESSICA JESUS PA-C on 02/16/20 [facility] Telephone (FAMPWS) Normal 02-16-2020 Adolfo SALLY Martinez ([id number]) 1980 F [place] Date Time Provider Department ([id number]) 02/16/20 ISABEL ARIAS) [facility] During your visit today, we recorded the following informati on about you: ISABEL ARIAS PA-C 02/16/2020 3:40 PM Signed Lipase levels are down compared to hospital. Res t of labs good. Continue with recommendations from Dr. Mejia. Valente Bruce Ma 02/16/2020 3:43 PM Signed Spoke with patient and she voiced understanding. Valente zamora Ma Allergies As of Date: 02/16/2020 Noted Allergy Reaction PENICILLINS 12/07/2009 2 - Rash ASA (SALICYLATES) 01/27/2011 14 - Other: See Comments Comments: ulcers CONTRAST DYE (IODINE) 05/17/2008 12 - Shortness of Breath FLAGYL (METRONIDAZOLE HCL) 03/11/2010 12 - Shortness of [place] th IBUPROFEN 06/18/2016 8 - GI Upset PREDNISONE 06/18/2016 14 - Other: See Comments Comments: makes agitated and mean Date Reviewed: 02/15/2020 Reviewed by: Marcelino Mejia - Fully Assessed Reason for Visit: Results [95] Prescriptions as of 02/16/2020 Sig: TRIAMCINOLONE ACETONIDE 0.1 %* Apply to affected areas 2-3 t * NYSTATIN 100,000 UNIT/ML ORAL* Take 5 mL by mouth four times * PROMETHAZINE 25 MG TABLET Take 1 tablet by mouth every * TOPIRAMATE 25 MG TABLET Take 1 po qhs x 1 week then i* CLINDAMYCIN HCL 300 MG CAPSULE Take 1 capsule by mouth four * Patient not taking: Reported on 02/14/2020 SERTRALINE 50 MG TABLET TAKE ONE HALF (1/2) TABLET BY* QUETIAPINE ORAL QUEtiapine Seroquel XR Active* BENZONATATE 200 MG CAPSULE Take 1 capsule by mouth three* ALBUTEROL SULFATE HFA 90 MCG/* Inhale 2 Puffs as instructed * Problem List As Of Date 02/16/2020 Noted Resolved Routine gynecological examination [Z01.419] 05/17/2008 Class: Chronic More... More... Family history of diabetes mellitus [Z83.3] 05/17/2008 More... Calculus of kidney [N20.0] 05/17/2008 More... Allergic rhinitis, cause unspecified [J30.9] 05/17/2008 More... Migraine without aura [G43.009] 05/17/2008 More... Smoker [F17.200] 05/17/2008 More... Impaired fasting glucose [R73.01] 05/17/2008 More... Benign liver cyst [K76.89] 05/24/2010 Class: Chronic More... Ovarian cyst [N83.209] 07/15/2012 Generalized anxiety disorder [F41.1] 03/31/2016 Reactive depression [F32.9] 03/31/2016 More... Adjustment insomnia [F51.02] 03/31/2016 Encounter for screening for cardiovascular diso*03/31/2016 Bilateral low back pain without sciatica [M54.5]06/18/2016 More... Pain in left hip [M25.552] 06/18/2016 Greater trochanteric bursitis [M70.60] 06/18/2016 Hydronephrosis of left kidney [N13.30] 02/05/2017 Hydroureter on left [N13.4] 02/05/2017 Right facial numbness [R20.0] 02/23/2017 Right upper extremity numbness [R20.0] 02/23/2017 Numbness of right lower extremity [R20.0] 02/23/2017 Weakness of right upper extremity [R29.898] 02/23/2017 Weakness of right lower extremity [R29.898] 02/23/2017 Vision blurred [H53.8] 02/23/2017 Lumbar spine pain [M54.5] 02/23/2017 Cervical spine pain [M54.2] 02/23/2017 Abnormal MRI, lumbar spine [R93.7] 02/23/2017 Hydroureter, left [N13.4] 03/30/2017 Lung nodules [R91.8] 01/22/2020 More... Encounter Status:Closed by VALENTE BRUCE MA on 02/16/20 progress on 2020-02 PROGRESS HNO ID: [id number] Normal 02-15-2020 [facility] Author: Marcelino Mejia Mata ([id number]) Service: ? Author Type: Physician Type: Progress Notes Filed: 02/15/2020 6:23 PM Note Text: Transitional Care Management Progress Note The patients TCM visit was performed within the 7 days of juve skinner TCM Eligibility Documentation The following information was gathered during the initial [facility] Outreach Encounter. Date of Outreach: 02/07/2020 Outreach Attempt 1: Contact Made Date of Discharge 02/05/2020 Some recent data might be hidden If no data exists please enter it manually. If data exists p gemaase delete date of discharge and date of initial contact seen below. Patient's Date of discharge: 02/12/20 Date of initial coordinator contact after discharge: was see n in office 2 business days Discharge diagnosis: pancreatitis Medication review completed Yes Branden Sanders Ma Provider Documentation: In follow-up of hospitalization, Sally Mcgregor is a 39 yea r old female with the chief complaint of pancreatitis. I have reviewed the patient?s last hospital course including diagnostic testing performed during this hospitalization, their dischar ge medications, and my assessment and plan with the patient and any family members present at today?s visit. Patient was sen in [facility] ER on 02/01/2020 with C/O epigastric p ain that radiated towards her back with some nausea. W/u was positive for acute pancreatitis with initial Lipase of 840 and maxed at 4682 on 02/03/2020. Patient is not a heavy drinker and CT of abdomen was unremar kable. Patient was discharged on 02/05/2020 and at that time her lip ase was 584. Patient was doing ok with some persistent discomfort until when the pain increased again but not to the same intensity. She also noted some nausea with vomiting. In ER Trigs were only 165 and Lip ase was increased to 1075. Other labs including CBC and CMP were unr emarkable. Patient still having mild discomfort. On 02/09/2020 patient r ated pain at a 9/10 and today says it's a 8/10 though walking in without any signs of distress and sitting comfortably in the office chair without signs of distress (would visibly rate her pain based on facial findin gs at a level of 4-5). Patient take a phenergan yesterday and did help the nausea. Man not needed any of the percocet since she has been home. No fevers or ch ills. She did vomit once the evening of 02/14/2020. No chest pain or benigno rtness of breath since being home. Patient was seen in the [facility] care yesterday for mouth sor es and a swab was taken to eval for fungus. She was started on nystatin sw destiney and swallow. PE: BP 118/88 Pulse 65 Temp 37.2 ?C (98.9 ?F) (Tympanic) R zohreh 13 Wt 83.5 kg (184 lb) LMP 08/10/2006 BMI 34.77 kg/m? PHYSICAL EXAMINATION: General appearance: Well appearing, alert, in no acute distr ess, well-hydrated, well nourished. Skin: Skin color, texture, turgor normal, no suspicious rash es or lesions, has signs of chronic picking on her arms. Eyes: Anicteric sclera. Pupils are equally round. Extraocula r movements are intact. Oropharynx: Lips, mucosa normal. Has a large ulcer on the ri ght side of her tongue and next to this is a bad tooth with a jagged edg e. Teeth: None on top and poor dentition on the bottom. gums so thrush on left upper gum. oropharynx normal Neck: Supple, no adenopathy; thyroid symmetric, normal size, no bruits Lungs: Lungs clear to auscultation. No wheezing, rhonchi, ra les. Heart: RRR without murmur, gallop, or rubs. No ectopy Abdomen: Normal abdominal exam, Abdomen soft, non-tender. Eric wel sounds normal. No masses, organomegaly. She showed no signs of disc omfort during abdominal exam with light or deep palpation. Extremities: No deformities, edema, A/P ASSESSMENT/PLAN: 1. Acute pancreatitis without infection or necrosis, unspeci fied pancreatitis type - ICD9: 577.0, ICD10: K85.90 (primary diag nosis) - CONSULT TO GASTROENTEROLOGY: [facility] in [place] - Cont prn phenergan. 2. Tongue ulcer - ICD9: 529.0, ICD10: K14.0 - This is secondary to poor dentition and need for the right posterior lower molar needed to be removed with a jagged edge. - Script for kenalog with orabase. 3. Poor dentition - ICD9: 525.9, ICD10: K08.9 - Needs to f/u with dentistry 4. Thrush - ICD9: 112.0, ICD10: B37.0 - Patient to complete the nystatin swish and swallow. F/u prn Signed Prescriptions Disp Refills triamcinolone (KENALOG IN ORABASE) 0.1 % paste 15 g 1 Sig: Apply to affected areas 2-3 times a day. F/u as needed. Marcelino Mejia MD lipase on 3 Lipase [Catalytic 193 16-61 U/L High 02-15-2020 [facility] activity/Vol] [place] and ([id number]) Comment: Performed By: #### HBA1C, TS H, LIPNF #### [facility] [address] [place], [place] [address] comp metabolic panel on 2020-02-15 Albumin [Mass/Vol] 4.6 3.9-4.9 g/dL Normal 02-15-2020 [facility] ([id number]) Comment: Performed By: #### HBA1C, TS H, LIPNF #### [place] [address] [place], [place] [address] ALP [Catalytic activity/Vol] 90 34-123 U/L Normal 0 02-15-2020 [facility] ([id number]) Comment: Performed By: #### HBA1C, TS H, LIPNF #### [facility] [address] [place], [place] [address] ALT [Catalytic activity/Vol] 6 7-38 U/L Low 0 02-15-2020 [facility] ([id number]) Comment: Performed By: #### HBA1C, TS H, LIPNF #### [facility] [address] [place], [place] [address] Anion gap [Moles/Vol] 13 9-18 mmol/L Normal 02-15-20 [facility] ([id number]) Comment: Performed By: #### HBA1C, TS H, LIPNF #### [facility] [address] [place], [place] [address] AST [Catalytic activity/Vol] 20 13-35 U/L Normal 0 02-15-2020 [facility] ([id number]) Comment: Performed By: #### HBA1C, TS H, LIPNF #### [facility] [address] [place], [place] [address] Bilirubin [Mass/Vol] 0.2 0.2-1.3 mg/dL Normal 0 [facility] ([id number]) Comment: Performed By: #### HBA1C, TS H, LIPNF #### [facility] [address] [place] [id number] Calcium [Mass/Vol] 10.2 8.5-10.2 mg/dL Normal 02-15-2020 [facility] ([id number]) Comment: Performed By: #### HBA1C, TS H, LIPNF #### [place] [address] Chloride [Moles/Vol] 100 97-105 mmol/L Normal 0 [facility] ([id number]) Comment: Performed By: #### HBA1C, TS H, LIPNF #### [facility] [place] [id number] CO2 [Moles/Vol] 26 22-30 mmol/L Normal 02-15-2020 [facility] ([id number]) Comment: Performed By: #### HBA1C, TS H, LIPNF #### [facility] [place] [id number] Creatinine [Mass/Vol] 0.92 0.58-0.96 mg/dL Normal 02-15-20 20 [facility] ([id number]) Comment: Performed By: #### HBA1C, TS H, LIPNF #### [facility] [place] [id number] eGFR- Amer. >60 Normal 02-15-2020 [facility] ([id number]) Comment: Performed By: #### HBA1C, TS H, LIPNF #### [facility] [address] [place], [place] [address] GFR/1.73 sq M predicted >60 mL/min/{1.73_m2} Normal 02-15-2020 [facility] among non-blacks MDRD Kimberly ([id number]) (S/P/Bld) [Vol rate/Area] Comment: Result Comment: eGFR (Estima arnie GFR) Units of measure: mL/min/1.73 meters squared eGFR is derived from the ree xpressed MDRD Study equation using the following parameters: serum creatinine, age, gender and race. The creatinine assay has been calibrated to be traceable to IDMS. An eGFR <60 mL/min/1.73m2 fo r >3 months is consistent with chronic kidney disease. Refer to KDOQI guidelines for clinical interpretation. In patients with unstable re nal function, e.g. those with acute kidney injury, the eGFR may not accurately reflect actual GFR. Performed By: #### HBA1C TS H, LIPNF #### [facility] [address] [place], [place] [address] Glucose [Mass/Vol] 89 74-99 mg/dL Normal 02-15-2020 [facility] ([id number]) Comment: Result Comment: The [place] [employer] (ADA) provides guidance for cutoff values for fasting glucose and random glucose. The ADA defines fasting as no caloric intake for at least 8 hours. Fas ting plasma glucose results between 100 to 125 mg/dL indicate increased risk for diabetes (prediabetes). Fasting plasma glucose resul ts greater than or equal to 126 mg/dL meet the criteria for diagnosis of diabetes. In the absence of unequivocal hyperglycemia, results should be confirmed by repeat testing. In a patient with classic s ymptoms of hyperglycemia or hyperglycemic crisis, random plasma glucose results greater than or equal to 200 mg/dL meet the criteria for diagnosis of diabetes. Reference: Standards of [facility] Care in Diabetes 2016, [place] [employer]. Diabetes Care. 2016.39(Suppl 1). Performed By: #### HBA1C, TS H, LIPNF #### [facility] [address] [place], [place] [address] Potassium [Moles/Vol] 3.7 3.7-5.1 mmol/L Normal 02-15-20 20 [facility] ([id number]) Comment: Performed By: #### HBA1C, TS H, LIPNF #### [facility] [address] [place], [place] [address] Protein [Mass/Vol] 7.8 6.3-8.0 g/dL Normal 02-15-2020 [facility] ([id number]) Comment: Performed By: #### HBA1C, TS H, LIPNF #### [facility] [address] [place], [place] [id number] Sodium [Moles/Vol] 139 136-144 mmol/L Normal 02-15-2020 [facility] ([id number]) Comment: Performed By: #### HBA1C, TS H, LIPNF #### [facility] [address] [place], [place] [address] Urea nitrogen [Mass/Vol] 9 7-21 mg/dL Normal 02-14 [facility] ([id number]) Comment: Performed By: #### HBA1C, TS H, LIPNF #### [facility] [address] [place], [place] [address] cnov on 2020-02-15 CNOV Office Visit (FAMPWS) Normal 02-15-[address] [place] [address] [facility] SALLY MCGREGOR ([id number]) 1980 [facility] [place] [facility] Date Time Provider Department ([id number]) 02/15/20 2:20 PM MARCELINO MEJIA FAMPWS During your visit today, we recorded the following informati on about you: Temperature Pulse Respiration Blood pressure 98.9 degrees 65/minute 13/minute 118/88 Weight 83.5 kg Marcelino Mejia MD 02/15/2020 6:23 PM Signed Transitional Care Management Progress Note The patients TCM visit was performed within the 7 days of juve hussein. TCM Eligibility Documentation The following information was gathered during the initial [facility] Outreach Encounter. Date of Outreach: 02/07/2020 Outreach Attempt 1: Contact Made Date of Discharge 02/05/2020 Some recent data might be hidden If no data exists please enter it manually. If d sumanth exists please delete date of discharge and date of initial contact seen below. Patient's Date of discharge: 02/12/20 Date of initial coordinator contact after discharge: was see n in office 2 business days Discharge diagnosis: pancreatitis Medication review completed Yes Branden Sanders Ma Provider Documentation: In follow-up of hospitalization, Sally Mcgregor is a 39 year old female with the chief complaint of pancreatitis. I have reviewed the patient? s last hospital course including diagnostic testing performed during this hospitalization, their discharge medic ations, and my assessment and plan with the patient and any family members present at today?s visit. Patient was sen in [facility] ER on 02/01/2020 with C/O epigastric pain that radiated towards her back with some nausea. W/u was positive for acut e pancreatitis with initial Lipase of 840 and maxed at 4682 on 02/03/2020. Patient is not a heavy drinker and CT of abdomen was unremarkable. Patient was discharged on 02/05/2020 and at that time her lipase was 584. P atient was doing ok with some persistent discomfort until 02/09/2020 wh en the pain increased again but not to the same intensity. She also noted some nausea with vomiting . In ER Trigs were only 165 and Lipase was increased to 1075. Other labs including CBC and CMP were unremarkable. Patient still having mild discomfort. On 02/09/2020 patient r ated pain at a 9/10 and today says it's a 8 /10 though walking in without any signs of distress and sitting comfortably in the office chair without si gns of distress (would visibly rate her pain based on facial findings at a level of 4-5). Patient take a phenergan yesterday and did help the nausea. Man not needed any of the percocet since she has been home. No fevers or chil ls. She did vomit once the evening of 02/14/2020. No chest p ain or shortness of breath since being home. Patient was seen in the [facility] care yesterday f or mouth sores and a swab was taken to eval for fungus. She was started on nystatin swish and swallow. PE: BP 118/88 Pulse 65 Temp 37.2 ?C (98.9 ?F) (Tympanic) R zohreh 13 Wt 83.5 kg (184 lb) LMP 08/10/2006 BMI 34.77 kg/m? PHYSICAL EXAMINATION: General appearance: Well mini earing, alert, in no acute distress, well-hydrated, well nourished. Skin: Skin color, texture, turgor normal , no suspicious rashes or lesions, has signs of chronic picking on her arms. Eyes: Anicteric sclera. Pupils are equally round. Extraocu lar movements are intact. Oropharynx: Lips, mucosa normal. Has a large ulcer on the right side of her tongue and next to this is a bad tooth with a ja gged edge. Teeth: None on top and poor dentition on the bottom. gums so thrush on left upp er gum. oropharynx normal Neck: Supple, no adenopathy; thyroid symmetric, normal size, no bruits Lungs: Lungs clear to auscultation. No wheezing, rhonchi, ra les. Heart: RRR without murmur, gallop, or rubs. No ectopy Abdomen: Normal abdominal exam, Abdomen soft, non-tender. Bowel sounds normal. No masses, organomegaly. She showed no signs of discomfort during abdominal exam with light or deep palpation. Extremities: No deformities, edema, A/P ASSESSMENT/PLAN: 1. Acute pancreatitis without infection or necro sis, unspecified pancreatitis type - ICD9: 577.0, ICD10: K85.90 (primary diagnosis) - CONSULT TO GASTROENTEROLOGY: [facility] in [place] - Cont prn phenergan. 2. Tongue ulcer - ICD9: 529.0, ICD10: K14.0 - This is secondary to poor dentition and need for the right posterior lower molar needed to be removed with a jagged edge. - Script for kenalog with orabase. 3. Poor dentition - ICD9: 525.9, ICD10: K08.9 - Needs to f/u with dentistry 4. Thrush - ICD9: 112.0, ICD10: B37.0 - Patient to complete the nystatin swish and swallow. F/u prn Signed Prescriptions Disp Refills triamcinolone (KENALOG IN ORABASE) 0.1 % paste 15 g 1 Sig: Apply to affected areas 2-3 times a day. F/u as needed. Marcelino Mejia MD Allergies As of Date: 02/15/2020 Noted Allergy Reaction PENICILLINS 12/07/2009 2 - Rash ASA (SALICYLATES) 01/27/2011 14 - Other: See Comments Comments: ulcers CONTRAST DYE (IODINE) 05/17/2008 12 - Shortness of Breath FLAGYL (METRONIDAZOLE HCL) 03/11/2010 12 - Shortness of [place] th IBUPROFEN 06/18/2016 8 - GI Upset PREDNISONE 06/18/2016 14 - Other: See Comments Comments: makes agitated and mean Date Reviewed: 02/15/2020 Reviewed by: Marcelino Mejia - Fully Assessed Reason for Visit: Transition Of Care [4074] Cmt: [facility] pancreatitis Reason For Visit History Recorded Primary Visit Diagnosis:Acute pancreatitis without infection or necrosis, unspecified pancreatitis type [K85.90] Other Visit Diagnoses:Tongue ulcer [K14.0] Poor dentition [K08.9] Thrush [B37.0] Order(s):CONSULT TO GASTROENTEROLOGY [9056] Order #: 1 [id number]: 1 FUTURE triamcinolone (KENALOG IN ORABASE) 0.1 % pasteApply to affec arnie areas 2-3 times a day.Disp: 15 gRfl: 1 Prescriptions as of 02/15/2020 Sig: NYSTATIN 100,000 UNIT/ML ORAL* Take 5 mL by mouth four times * PROMETHAZINE 25 MG TABLET Take 1 tablet by mouth every * SERTRALINE 50 MG TABLET TAKE ONE HALF (1/2) TABLET BY* QUETIAPINE ORAL QUEtiapine Seroquel XR Active* TRIAMCINOLONE ACETONIDE 0.1 %* Apply to affected areas 2-3 t * TOPIRAMATE 25 MG TABLET Take 1 po qhs x 1 week then i* CLINDAMYCIN HCL 300 MG CAPSULE Take 1 capsule by mouth four * Patient not taking: Reported on 02/14/2020 BENZONATATE 200 MG CAPSULE Take 1 capsule by mouth three* ALBUTEROL SULFATE HFA 90 MCG/* Inhale 2 Puffs as instructed * Problem List As Of Date 02/15/2020 Noted Resolved Routine gynecological examination [Z01.419] 05/17/2008 Class: Chronic More... More... Family history of diabetes mellitus [Z83.3] 05/17/2008 More... Calculus of kidney [N20.0] 05/17/2008 More... Allergic rhinitis, cause unspecified [J30.9] 05/17/2008 More... Migraine without aura [G43.009] 05/17/2008 More... Smoker [F17.200] 05/17/2008 More... Impaired fasting glucose [R73.01] 05/17/2008 More... Benign liver cyst [K76.89] 05/24/2010 Class: Chronic More... Ovarian cyst [N83.209] 07/15/2012 Generalized anxiety disorder [F41.1] 03/31/2016 Reactive depression [F32.9] 03/31/2016 More... Adjustment insomnia [F51.02] 03/31/2016 Encounter for screening for cardiovascular diso*03/31/2016 Bilateral low back pain without sciatica [M54.5]06/18/2016 More... Pain in left hip [M25.552] 06/18/2016 Greater trochanteric bursitis [M70.60] 06/18/2016 Hydronephrosis of left kidney [N13.30] 02/05/2017 Hydroureter on left [N13.4] 02/05/2017 Right facial numbness [R20.0] 02/23/2017 Right upper extremity numbness [R20.0] 02/23/2017 Numbness of right lower extremity [R20.0] 02/23/2017 Weakness of right upper extremity [R29.898] 02/23/2017 Weakness of right lower extremity [R29.898] 02/23/2017 Vision blurred [H53.8] 02/23/2017 Lumbar spine pain [M54.5] 02/23/2017 Cervical spine pain [M54.2] 02/23/2017 Abnormal MRI, lumbar spine [R93.7] 02/23/2017 Hydroureter, left [N13.4] 03/30/2017 Lung nodules [R91.8] 01/22/2020 More... Prescriptions ordered this encounter Disp Refills Start End TRIAMCINOLONE ACETONIDE 0.1 % DENTAL* 15 g 1 02/15/2020 Sig: Apply to affected areas 2-3 times a day. Medications Discontinued During This Encounter cyclobenzaprine (FLEXERIL) 10 mg tab* 30 t* 0 07/21/20192019 Route: ORAL Sig: Take 1 tablet by mouth three times daily as needed for Muscle Spasm. Patient not taking: Reported on 11/18/2019 Disc: Course of therapy completed gabapentin (NEURONTIN) 300 mg capsule 30 c* 2 11/24/20192019 Route: ORAL Sig: Take 1 capsule by mouth daily at bedtime for 90 days. Disc: Course of therapy completed nicotine (NICODERM) 14 mg/24 hr 30 P* 0 01/24/2020 02/15/2020 Route: TRANSDERMAL Sig: Apply 1 Patch as directed every 24 hours. No smoking wi th patch. Disc: Course of therapy completed LORazepam (ATIVAN) 1 mg tablet 1 ta* 0 01/24/2020 02/15/2020 Sig: Take 1 tablet 30-60min prior to MRI Disc: Discontinued by Patient ondansetron orally disintegrating (Z* 20 t* 0 12/15/2019 020 Route: ORAL Sig: Take 1 tablet by mouth every 6 hours as needed for Naus ea/Vomiting. Disc: Course of therapy completed Disposition: Return if symptoms worsen or fail to improve. Follow-up and Disposition History Recorded Encounter Status:Closed by MARCELINO MEJIA on 02/15/20 cbc and differential on 2020-02-15 Abs Baso 0.07 <0.11 k/uL Normal 02-15-2020 [facility] ([id number]) Comment: Performed By: #### HBA1C, TS H, LIPNF #### [facility] [address] [place], [place] [address] Abs Curry 0.53 <0.87 k/uL Normal 02-15-2020 [facility] ([id number]) Comment: Performed By: #### HBA1C, TS H, LIPNF #### [facility] [address] [place], [place] [address] Abs Neut 6.05 1.45-7.50 k/uL Normal 02-15-2020 [facility] ([id number]) Comment: Performed By: #### HBA1C, TS H, LIPNF #### [facility] [address] [place], [place] [address] Absolute nRBC <0.01 <0.01 Normal 02-15-2020 [facility] ([id number]) Comment: Performed By: #### HBA1C, TS H, LIPNF #### [facility] [place] [address] Basophils/100 WBC (Bld) 0.7 % Normal 2019 [facility] ([id number]) Comment: Performed By: #### HBA1C, TS H, LIPNF #### [facility] [address] [place] [address] DTYPE Auto Diff Normal 02-15-2020 [facility] ([id number]) Comment: Performed By: #### HBA1C, TS H, LIPNF #### [place] [address] Eosinophils (Bld) [#/Vol] 0.38 <0.46 k/uL Normal [facility] ([id number]) Comment: Performed By: #### HBA1C, TS H, LIPNF #### [facility] [place] [address] Eosinophils/100 WBC (Bld) 3.9 % Normal [facility] (96502) Comment: Performed By: #### HBA1C, TS H, LIPNF #### [facility] [place] [address] Erythrocyte distribution 14.7 11.5-15.0 % Normal 02-14 [facility] width (RBC) [Ratio] [facility] ([id number]) Comment: Performed By: #### HBA1C, TS H, LIPNF #### [facility] [address] [place], [place] [address] Hematocrit (Bld) [Volume 40.4 36.0-46.0 % Normal 02-14 [facility] ([id number]) Comment: Performed By: #### HBA1C, TS H, LIPNF #### [address] [address] Hemoglobin (Bld) 12.0 11.5-15.5 g/dL Normal 02-15-2020 [facility] [Mass/Vol] [place] ([id number]) Comment: Performed By: #### HBA1C, TS H, LIPNF #### [place] [address] Lymphocytes (Bld) [#/Vol] 2.77 1.00-4.00 k/uL Normal [facility] ([id number]) Comment: Performed By: #### HBA1C, TS H, LIPNF #### [address] [address] Lymphocytes/100 WBC (Bld) 28.3 % Normal [facility] (87289) Comment: Performed By: #### HBA1C, TS H, LIPNF #### [address] [address] MCH (RBC) [Entitic mass] 28.6 26.0-34.0 pG Normal 02-14 [facility] ([id number]) Comment: Performed By: #### HBA1C, TS H, LIPNF #### [address] [address] MCHC (RBC) [Mass/Vol] 29.7 30.5-36.0 g/dL Low 02-15-20 [facility] ([id number]) Comment: Performed By: #### HBA1C, TS H, LIPNF #### [address], [place] [address] MCV (RBC) [Entitic vol] 96.4 80.0-100.0 fL Normal 02-14 [facility] ([id number]) Comment: Performed By: #### HBA1C, TS H, LIPNF #### [facility] [address] [place], [place] [address] Monocytes/100 WBC (Bld) 5.4 % Normal 2019 [facility] ([id number]) Comment: Performed By: #### HBA1C, TS H, LIPNF #### [facility] [address] [place], [place] [address] Neutrophils/100 WBC (Bld) 61.7 % Normal [facility] (36271) Comment: Performed By: #### HBA1C, TS H, LIPNF #### [facility] [address] [place], [place] [address] NRBCs 0.0 0 /100 WBC Normal 02-15-2020 [facility] ([id number]) Comment: Performed By: #### HBA1C, TS H, LIPNF #### [facility] [address] [place], [place] [address] Platelet mean volume 10.6 9.0-12.7 fL Normal 0 [facility] (Bld) [Entitic vol] [place] ([id number]) Comment: Performed By: #### HBA1C, TS H, LIPNF #### [facility] [address] [place], [place] [address] Platelets (Bld) [#/Vol] 435 150-400 k/uL High 2019 [facility] ([id number]) Comment: Performed By: #### HBA1C, TS H, LIPNF #### [facility] [address] [place], [place] [address] RBC (Bld) [#/Vol] 4.19 3.90-5.20 m/uL Normal 02-15-2020 [facility] ([id number]) Comment: Performed By: #### HBA1C, TS H, LIPNF #### [facility] [address] [place], [place] [address] WBC (Bld) [#/Vol] 9.80 3.70-11.00 k/uL Normal 02-15-2020 [facility] ([id number]) Comment: Performed By: #### HBA1C, TS H, LIPNF #### [facility] [address] [place], [place] [address] amylase on Amylase [Catalytic 52 30-104 U/L Normal 02-15-2020 [facility] activity/Vol] [place] and ([id number]) Comment: Performed By: #### HBA1C, TS H, LIPNF #### [facility] [address] [place], [place] [id number] progress on 2020-02 PROGRESS HNO ID: [id number] Normal 02-14-2020 [facility] Author: Jessica Coppola) [facility] [place] ([id number]) Service: ? Author Type: Physician Taximeter Repairer Type: Progress Notes Filed: 02/14/2020 1:14 PM Note Text: This note was created using Artklikkriter. Subjective Sally Mcgregor is a 39 year old female. HPI Patient presents with a sore on her tongue over the past thu. She was on clindamycin for an extended period of time and had multip le bouts of pancreatitis recently. She states the mouth sore started giovanna ting more today so she came in for evaluation. She is supposed to be s een tomorrow by her PCP for hospital follow-up and to look at the mouth s ores. No fever or chills. She has a former smoker. Review of Systems HENT: Tongue sore All other systems reviewed and are negative. PAST MEDICAL HISTORY Diagnosis Date - Allergic rhinitis, cause unspecified 05/17/2008 Spring and summer - Benign liver cyst 05/24/2010 CT scan at [facility] 11/2009 and 04/2010 showe 4 mm increase in size . No pain. No elevated LFTs on 03/11/2010. - Calculus of kidney 05/17/[address] Nicolas: Hospitalized age 20, and again later -- no procedures so far ([facility], [facility], 1995 [facility]) - Dysmenorrhea - Impaired fasting glucose 05/17/2008 Sugar 104 fasting, 04/21 - MIGRAINE 05/17/2008 Has used imitrex with good response; Keeps Vicodin on hand w hen needed; - Ovarian cyst 07/15/2012 - Smoker 05/17/2008 Started age 26, 1/2 a PPD Current Outpatient Medications Medication Sig Dispense Refill - promethazine (PHENERGAN) 25 mg tablet Take 1 tablet by nick th every 6 hours as needed. 30 tablet 1 - topiramate (TOPAMAX) 25 mg tablet Take 1 po qhs x 1 week t hen increase to 1 po BID x 1 week. Then 1 qam and 2 qpm x1 week, then davida e 2 po BID. 120 tablet 1 - LORazepam (ATIVAN) 1 mg tablet Take 1 tablet 30-60min prio r to MRI 1 tablet 0 - sertraline (ZOLOFT) 50 mg tablet TAKE ONE HALF (1/2) TABLE T BY MOUTH EVERY MORNING FOR 6 DAYS, THEN TAKE ONE TABLET EVERY MORNING - quetiapine fumarate (QUETIAPINE ORAL) QUEtiapine Seroquel XR Active 150 MG DAILY September 02, 2019 5:34am 09-02-2019 [facility] ([id number]) - ondansetron orally disintegrating (ZOFRAN ODT) 4 mg disint egrating tablet Take 1 tablet by mouth every 6 hours as needed for Na usea/Vomiting. 20 tablet 0 - Benzonatate 200 mg capsule Take 1 capsule by mouth three t imes daily as needed. 20 capsule 0 - albuterol HFA (VENTOLIN HFA) 90 mcg/actuation inhaler Inha le 2 Puffs as instructed every 4 hours as needed. - gabapentin (NEURONTIN) 300 mg capsule Take 1 capsule by mo uth daily at bedtime for 90 days. 30 capsule 2 - nystatin (MYCOSTATIN) 100,000 unit/mL suspension Take 5 mL by mouth four times daily for 14 days. 1tsp swish in mouth for several min utes, then spit out 4 times daily until gone. 280 mL 0 - nicotine (NICODERM) 14 mg/24 hr Apply 1 Patch as directed every 24 hours. No smoking with patch. 30 Patch 0 - clindamycin (CLEOCIN) 300 mg capsule Take 1 capsule by nick th four times daily. (Patient not taking: Reported on 02/14/2020 ) 40 capsule 0 - cyclobenzaprine (FLEXERIL) 10 mg tablet Take 1 tablet by m outh three times daily as needed for Muscle Spasm. (Patient not taking: Reported on 11/18/2019 ) 30 tablet 0 No current facility-administered medications for this visit. PAST SURGICAL HISTORY Procedure Laterality Date - DANDC, DIAG AND/OR THERAPEUTIC - LIGATE FALLOPIAN TUBE - PAST SURGICAL HISTORY OF uterine ablation - PAST SURGICAL HISTORY OF cyst removal - REMOVAL GALLBLADDER - REMOVAL OF OVARY(S) 2009 Oophorectomy right, still has left - REMOVAL OF OVARY(S) 01/2015 left removed - TOTAL ABDOM HYSTERECTOMY 08/31/06 Hysterectomy, [facility] FAMILY HISTORY Problem Relation Age of Onset - Diabetes Maternal Grandmother - Diabetes Maternal Grandfather - Lipids Maternal Grandfather - Stroke Maternal Grandfather - Coronary Artery Disease Maternal Grandfather - Cataract Maternal Grandfather - Diabetes Paternal Grandmother - Diabetes Paternal Grandfather - Coronary Artery Disease Paternal Grandfather - Thyroid Mother unsure of details - Arthritis Mother fibromyalgia - Blood Disease Mother blood clots, unsure of details (aorta?) - Breast Cancer Maternal Aunt - Lipids Maternal Uncle - Coronary Artery Disease Maternal Uncle - other (ovarian ca) Other maternal cousin Social History Tobacco Use - Smoking status: Former Smoker Packs/day: 0.50 Years: 3.00 Pack years: 1.50 Types: Cigarettes Last attempt to quit: 01/12/2017 Years since quittin.0 - Smokeless tobacco: Never Used - Tobacco comment: Approx. 3 cigarettes daily-1 pack every w [place] Substance Use Topics - Alcohol use: Yes Comment: Occasional - Drug use: No Objective BP 124/82 Pulse 86 Temp 37.3 ?C (99.1 ?F) (Tympanic) R zohreh 18 Wt 83.7 kg (184 lb 9.6 oz) LMP 08/10/2006 BMI 34.88 kg/m ? Physical Exam Vitals signs reviewed. Constitutional: Appearance: Normal appearance. HENT: Head: Normocephalic and atraumatic. Mouth/Throat: Comments: Patient has an ulcer on the right lateral tongue w ith some white exudate. Some mild surrounding redness. She also has s ome erythema of the mucosa adjacent to the gumline of the right upper ismael th with a small ulceration here. Neurological: Mental Status: She is alert. Assessment and Plan ASSESSMENT/PLAN: 1. Tongue ulcer - ICD9: 529.0, ICD10: K14.0 - FUNGAL SCREEN I will start her on a nystatin as this developed after she w as on an extended period of antibiotics and could possibly be fungal. I did send a fungal screen. We will call those results. If not improving with that she may need to see ENT or oral surgery. Jessica Jesus PA-C fungus screen on 03-03-02 Fungus Screen Sp. Request/Comment: - Swab Critical ly 02-14-2020 [facility] abnormal [place] Culture Result - Few Neris glabrata --> ABNORMAL ALERT ([id number]) Comment: Performed By: #### HBA1C, TS H, LIPNF #### [facility] [address] [place] [address] cnov on 2020-02-14 [facility] Office Visit ([facility]) Normal 02-14-20 [place] [facility] SALLY MCGREGOR ([id number]) 1980 [facility] Date Time Provider Department ([id number]) 02/14/20 12:45 PM JESSICA JESUS (CHAZ) [facility] During your visit today, we recorded the following informati on about you: Temperature Pulse Respiration Blood pressure 99.1 degrees 86/minute 18/minute 124/82 Weight 83.7 kg Jessica Jesus PA-C 02/14/2020 1:14 PM Signed This note was created using NoteWriter. Subjective Sally Mcgregor is a 39 year old female. HPI Patient presents with a sore on her tongue over the past thu. She was on clindamycin for an extended period of time and had multiple bouts of pancreatitis recently. She states the mo uth sore started hurting more today so she came in for evaluation. She is suppo sed to be seen tomorrow by her PCP for hospital follow-up and to look at the mouth sores. No fever or chills. She has a former smoker. Review of Systems HENT: Tongue sore All other systems reviewed and are negative. PAST MEDICAL HISTORY Diagnosis Date - Allergic rhinitis, cause unspecified 05/17/2008spring and summer - Benign liver cyst 05/24/2010 CT scan at [facility] 11/2009 and 04/2010 showe 4 mm increase in size . No pain. No elevated LFTs on 03/11/2010. - Calculus of kidney 05/17/[address] Nicolas: Hospitalized age 20, a nd again later -- no procedures so far [facility] - Dysmenorrhea - Impaired fasting glucose 05/17/2008 Sugar 104 fasting, 04/21 - MIGRAINE 05/17/2008 Has used imitrex with good response; Keeps Vicodin on hand w hen needed; - Ovarian cyst 07/15/2012 - Smoker 05/17/2008 Started age 26, 1/2 a PPD Current Outpatient Medications Medication Sig Dispense Refill - promethazine (PHENERGAN) 2 5 mg tablet Take 1 tablet by mouth every 6 hours as needed. 30 tablet 1 - topiramate (TOPAMAX) 25 mg tablet Take 1 po qh s x 1 week then increase to 1 po BID x 1 week. Then 1 qam and 2 qpm x1 week, then take 2 po BID. 120 tablet 1 - LORazepam (ATIVAN) 1 mg ta blet Take 1 tablet 30-60min prior to MRI 1 tablet 0 - sertraline (ZOLOFT) 50 mg tablet TAKE ONE HALF (1/2) TABLET BY MOUTH EVERY MORNING FOR 6 DAYS, THEN TAKE ONE TABLET EVERY MORNING - quetiapine fumarate (QUETIAPINE ORAL) QUEtiapine Ser oquel XR Active 150 MG DAILY September 02, 2019 5:34am 12-20-2 019 [facility] ([id number]) - ondansetron orally disintegrating (ZOFRAN ODT) 4 mg disi ntegrating tablet Take 1 tablet by mouth every 6 hours as needed for Nausea/Vomiting. 20 tablet 0 - Benzonatate 200 mg capsule Take 1 capsule by mouth three t imes daily as needed. 20 capsule 0 - albuterol HFA (VENTOLIN HFA) 90 mcg/actuation inhaler Inha le 2 Puffs as instructed every 4 hours as needed. - gabapentin (NEURONTIN) 300 mg capsule Take 1 capsule by mo uth daily at bedtime for 90 days. 30 capsule 2 - nystatin (MYCOSTATIN) 100,000 unit/mL suspension Take 5 mL by mouth four times daily for 14 days. 1ts p swish in mouth for several minutes, then spit out 4 times daily until gone. 280 mL 0 - nicotine (NICODERM) 14 mg/24 hr Apply 1 Patch as directed every 24 hours. No smoking with patch. 30 Patch 0 - clindamycin (CLEOCIN) 300 mg capsule Take 1 capsule by nick th four times daily. (Patient not taking: Reported on 02/14/2020 ) 40 capsule 0 - cyclobenzaprine (FLEXERIL) 10 mg tablet Take 1 table t by mouth three times daily as needed for Muscle Spasm. (Patient not taking: Rep orted on 11/18/2019 ) 30 tablet 0 No current facility-administered medications for this visit. PAST SURGICAL HISTORY Procedure Laterality Date - DANDC, DIAG AND/OR THERAPEUTIC - LIGATE FALLOPIAN TUBE - PAST SURGICAL HISTORY OF uterine ablation - PAST SURGICAL HISTORY OF cyst removal - REMOVAL GALLBLADDER - REMOVAL OF OVARY(S) 2009 Oophorectomy right, still has left - REMOVAL OF OVARY(S) 01/2015 left removed - TOTAL ABDOM HYSTERECTOMY 08/31/06 Hysterectomy, [facility] FAMILY HISTORY Problem Relation Age of Onset - Diabetes Maternal Grandmother - Diabetes Maternal Grandfather - Lipids Maternal Grandfather - Stroke Maternal Grandfather - Coronary Artery Disease Maternal Grandfather - Cataract Maternal Grandfather - Diabetes Paternal Grandmother - Diabetes Paternal Grandfather - Coronary Artery Disease Paternal Grandfather - Thyroid Mother unsure of details - Arthritis Mother fibromyalgia - Blood Disease Mother blood clots, unsure of details (aorta?) - Breast Cancer Maternal Aunt - Lipids Maternal Uncle - Coronary Artery Disease Maternal Uncle - other (ovarian ca) Other maternal cousin Social History Tobacco Use - Smoking status: Former Smoker Packs/day: 0.50 Years: 3.00 Pack years: 1.50 Types: Cigarettes Last attempt to quit: 01/12/2017 Years since quittin.0 - Smokeless tobacco: Never Used - Tobacco comment: Approx. 3 cigarettes daily-1 pack every w [place] Substance Use Topics - Alcohol use: Yes Comment: Occasional - Drug use: No Objective BP 124/82 Pulse 86 Temp 37.3 ?C (99.1 ?F) (Tympanic) R zohreh 18 Wt 83.7 kg (184 lb 9.6 oz) LMP 08/10/2006 BMI 34.88 kg/m? Physical Exam Vitals signs reviewed. Constitutional: Appearance: Normal appearance. HENT: Head: Normocephalic and atraumatic. Mouth/Throat: Comments: Patient has an ulcer on the right lateral tongue w ith some white exudate. Some mild surrounding redness. She also has some er ythema of the mucosa adjacent to the gumli ne of the right upper teeth with a small ulceration here. Neurological: Mental Status: She is alert. Assessment and Plan ASSESSMENT/PLAN: 1. Tongue ulcer - ICD9: 529.0, ICD10: K14.0 - FUNGAL SCREEN I will start her on a nystatin as this developed after she was on an extended period of antibiotics and could possibly be fungal. I did se nd a fungal screen. We will call those results. If not improving with that she may need to see ENT or oral surgery. Jessica Jesus PA-C Referring Provider: SELF [[id number]] Allergies As of Date: 02/14/2020 Noted Allergy Reaction ASA (SALICYLATES) 01/27/2011 14 - Other: See Comments Comments: ulcers CONTRAST DYE (IODINE) 05/17/2008 12 - Shortness of Breath FLAGYL (METRONIDAZOLE HCL) 03/11/2010 12 - Shortness of [place] th IBUPROFEN 06/18/2016 8 - GI Upset PENICILLINS 12/07/2009 2 - Rash PREDNISONE 06/18/2016 14 - Other: See Comments Comments: makes agitated and mean Date Reviewed: 02/14/2020 Reviewed by: Flora Esparza LPN - Fully Assessed Reason for Visit: tongue infection [Other] Cmt: off and on x 1 month Primary Visit Diagnosis:Tongue ulcer [K14.0] Order(s):nystatin (MYCOSTATIN) 100,000 unit/mL suspensionT maninder 5 mL by mouth four times daily for 14 days. 1tsp swish in mouth for severa l minutes, then spit out 4 times daily until gone.Disp: 280 mLRfl: 0 FUNGAL SCREEN [SQFUNGSC] Order #: [id number] Prescriptions as of 02/14/2020 Sig: PROMETHAZINE 25 MG TABLET Take 1 tablet by mouth every * TOPIRAMATE 25 MG TABLET Take 1 po qhs x 1 week then i* LORAZEPAM 1 MG TABLET Take 1 tablet 30-60min prior * SERTRALINE 50 MG TABLET TAKE ONE HALF (1/2) TABLET BY* QUETIAPINE ORAL QUEtiapine Seroquel XR Active* ONDANSETRON 4 MG DISINTEGRATI* Take 1 tablet by mouth every * BENZONATATE 200 MG CAPSULE Take 1 capsule by mouth three* ALBUTEROL SULFATE HFA 90 MCG/* Inhale 2 Puffs as instructed * GABAPENTIN 300 MG CAPSULE Take 1 capsule by mouth daily* NYSTATIN 100,000 UNIT/ML ORAL* Take 5 mL by mouth four times * NICOTINE 14 MG/24 HR DAILY TR* Apply 1 Patch as directed neela * CLINDAMYCIN HCL 300 MG CAPSULE Take 1 capsule by mouth four * Patient not taking: Reported on 02/14/2020 CYCLOBENZAPRINE 10 MG TABLET Take 1 tablet by mouth three * Patient not taking: Reported on 11/18/2019 Problem List As Of Date 02/14/2020 Noted Resolved Routine gynecological examination [Z01.419] 05/17/2008 Class: Chronic More... More... Family history of diabetes mellitus [Z83.3] 05/17/2008 More... Calculus of kidney [N20.0] 05/17/2008 More... Allergic rhinitis, cause unspecified [J30.9] 05/17/2008 More... Migraine without aura [G43.009] 05/17/2008 More... Smoker [F17.200] 05/17/2008 More... Impaired fasting glucose [R73.01] 05/17/2008 More... Benign liver cyst [K76.89] 05/24/2010 Class: Chronic More... Ovarian cyst [N83.209] 07/15/2012 Generalized anxiety disorder [F41.1] 03/31/2016 Reactive depression [F32.9] 03/31/2016 More... Adjustment insomnia [F51.02] 03/31/2016 Encounter for screening for cardiovascular diso*03/31/2016 Bilateral low back pain without sciatica [M54.5]06/18/2016 More... Pain in left hip [M25.552] 06/18/2016 Greater trochanteric bursitis [M70.60] 06/18/2016 Hydronephrosis of left kidney [N13.30] 02/05/2017 Hydroureter on left [N13.4] 02/05/2017 Right facial numbness [R20.0] 02/23/2017 Right upper extremity numbness [R20.0] 02/23/2017 Numbness of right lower extremity [R20.0] 02/23/2017 Weakness of right upper extremity [R29.898] 02/23/2017 Weakness of right lower extremity [R29.898] 02/23/2017 Vision blurred [H53.8] 02/23/2017 Lumbar spine pain [M54.5] 02/23/2017 Cervical spine pain [M54.2] 02/23/2017 Abnormal MRI, lumbar spine [R93.7] 02/23/2017 Hydroureter, left [N13.4] 03/30/2017 Lung nodules [R91.8] 01/22/2020 More... Prescriptions ordered this encounter Disp Refills Start End NYSTATIN 100,000 UNIT/ML ORAL SUSPEN* 280 * 0 02/14/2020 Route: ORAL Sig: Take 5 mL by mouth four times daily for 14 days. 1tsp swish in mouth for several minutes, then spit out 4 times daily until gone. Encounter Status:Closed by JESSICA JESUS PA-C on 02/14/20 cnpn [facility] Normal 02-13-2020 [place] SALLY Martinez ([id number]) 1980 [address] [address] Date Time Provider Department ([id number]) 02/13/20 MARCELINO MEJIAPWS During your visit today, we recorded the following informati on about you: Christopher Carcamo RN 02/13/2020 10:27 AM Signed Patient reports she was discharged from [facility] yesterday, after a 4 day stay, for pancreatitis. Scheduled f/u visit with PA, for tomorro w. Patient asking note be sent to provider also. Reports she still has a sore on he r tongue, [facility] doctor was not concerned about it. She is using warm s alt water gargles, and hydrogen peroxide rinses. States she can't go to dentist, an d asking if PA wants to prescribe an AB for it? Please advise patient. ISABEL ARIAS PA-C 02/13/2020 10:[address] Mejia, would you be willing to do a n in person hospital follow up/tcm for this patient later this week? She cannot do video calls, so i'm unable to assess her mouth sores and she also has mentioned to me a sore on her arm that had her concerned last week? MAYA Bowser PA-C 02/13/2020 10:42 AM Signed Please attempt to set patient up for an in person TCM visi t with Dr. Mejia later this week. That way he can review hospital documentation and take a look at the sores she is concerned about. If she mentions an issue with ride, please let h er know that she needs to ask her insurance or family/friend. I really need to have her seen in person given her concerns. MAYA Bowser MA, BROCK 02/13/2020 11:41 AM Signed Pt scheduled. Roxanne Patel MA Allergies As of Date: 02/13/2020 Noted Allergy Reaction ASA (SALICYLATES) 01/27/2011 14 - Other: See Comments Comments: ulcers CONTRAST DYE (IODINE) 05/17/2008 12 - Shortness of Breath FLAGYL (METRONIDAZOLE HCL) 03/11/2010 12 - Shortness of [place] th IBUPROFEN 06/18/2016 8 - GI Upset PENICILLINS 12/07/2009 2 - Rash PREDNISONE 06/18/2016 14 - Other: See Comments Comments: makes agitated and mean Date Reviewed: 01/02/2020 Reviewed by: Ashley Lehman Ma - Fully Assessed Reason for Visit: [facility] visit [Other] Prescriptions as of 02/13/2020 Sig: PROMETHAZINE 25 MG TABLET Take 1 tablet by mouth every * TOPIRAMATE 25 MG TABLET Take 1 po qhs x 1 week then i* LORAZEPAM 1 MG TABLET Take 1 tablet 30-60min prior * NICOTINE 14 MG/24 HR DAILY TR* Apply 1 Patch as directed neela * CLINDAMYCIN HCL 300 MG CAPSULE Take 1 capsule by mouth four * SERTRALINE 50 MG TABLET TAKE ONE HALF (1/2) TABLET BY* QUETIAPINE ORAL QUEtiapine Seroquel XR Active* ONDANSETRON 4 MG DISINTEGRATI* Take 1 tablet by mouth every * BENZONATATE 200 MG CAPSULE Take 1 capsule by mouth three* ALBUTEROL SULFATE HFA 90 MCG/* Inhale 2 Puffs as instructed * GABAPENTIN 300 MG CAPSULE Take 1 capsule by mouth daily* CYCLOBENZAPRINE 10 MG TABLET Take 1 tablet by mouth three * Patient not taking: Reported on 11/18/2019 Problem List As Of Date 02/13/2020 Noted Resolved Routine gynecological examination [Z01.419] 05/17/2008 Class: Chronic More... More... Family history of diabetes mellitus [Z83.3] 05/17/2008 More... Calculus of kidney [N20.0] 05/17/2008 More... Allergic rhinitis, cause unspecified [J30.9] 05/17/2008 More... Migraine without aura [G43.009] 05/17/2008 More... Smoker [F17.200] 05/17/2008 More... Impaired fasting glucose [R73.01] 05/17/2008 More... Benign liver cyst [K76.89] 05/24/2010 Class: Chronic More... Ovarian cyst [N83.209] 07/15/2012 Generalized anxiety disorder [F41.1] 03/31/2016 Reactive depression [F32.9] 03/31/2016 More... Adjustment insomnia [F51.02] 03/31/2016 Encounter for screening for cardiovascular diso*03/31/2016 Bilateral low back pain without sciatica [M54.5]06/18/2016 More... Pain in left hip [M25.552] 06/18/2016 Greater trochanteric bursitis [M70.60] 06/18/2016 Hydronephrosis of left kidney [N13.30] 02/05/2017 Hydroureter on left [N13.4] 02/05/2017 Right facial numbness [R20.0] 02/23/2017 Right upper extremity numbness [R20.0] 02/23/2017 Numbness of right lower extremity [R20.0] 02/23/2017 Weakness of right upper extremity [R29.898] 02/23/2017 Weakness of right lower extremity [R29.898] 02/23/2017 Vision blurred [H53.8] 02/23/2017 Lumbar spine pain [M54.5] 02/23/2017 Cervical spine pain [M54.2] 02/23/2017 Abnormal MRI, lumbar spine [R93.7] 02/23/2017 Hydroureter, left [N13.4] 03/30/2017 Lung nodules [R91.8] 01/22/2020 More... Encounter Status:Closed by ROXANNE PATEL on 02/13/[facility] Normal 02-09-2020 [facility] SALLY MCGREGOR ([id number]) 1980 [facility] Date Time Provider Department ([id number]) 02/09/20 [facility] During your visit today, we recorded the following informati on about you: Mildred Tolbert RN 02/09/2020 1:14 PM Signed Patient calling to say she i s having abdominal pain 10 and has been nauseated w/vomiting since discharge from hospital . She states she can't even keep water down. She is taking Zofran and it's not helping. She does no t feel dehydrated. She states she plans to go to ER if these sympto ms continue. Mildred ARIAS PA-C 02/09/2020 2:04 PM Signed When she talked with me yesterday she said she was tolerat ing small diet of jello and even mac n cheese on Thursday. So when did thi s nausea worsen? I can send in phenegran for her to try instead. She was also sup posed to get labs rechecked, when did she plan on coming to lab. MAYA Bowser MA, MA 02/09/2020 2:07 PM Signed Unable to reach patient . No answer and Vm is full. BROCK Fritz, RN, RN 02/09/2020 2:43 PM Signed Pt calls back, stating she is currently at [facility] ER. States she had labs done and has been examined by the ER provider . Pt states she felt worse starting at 10 pm last night and has been vomiting ever since. ISABEL ARIAS PA-C 02/09/2020 2:53 PM Signed Noted. Isabel Arias PA-C Allergies As of Date: 02/09/2020 Noted Allergy Reaction ASA (SALICYLATES) 01/27/2011 14 - Other: See Comments Comments: ulcers CONTRAST DYE (IODINE) 05/17/2008 12 - Shortness of Breath FLAGYL (METRONIDAZOLE HCL) 03/11/2010 12 - Shortness of [place] th IBUPROFEN 06/18/2016 8 - GI Upset PENICILLINS 12/07/2009 2 - Rash PREDNISONE 06/18/2016 14 - Other: See Comments Comments: makes agitated and mean Date Reviewed: 01/02/2020 Reviewed by: Ashley Lehman Ma - Fully Assessed Reason for Visit: Nausea AND Vomiting [237] Order(s):promethazine (PHENERGAN) 25 mg tabletTake 1 t ablet by mouth every 6 hours as needed.Disp: 30 tabletRfl: 1 Prescriptions as of 02/09/2020 Sig: PROMETHAZINE 25 MG TABLET Take 1 tablet by mouth every * TOPIRAMATE 25 MG TABLET Take 1 po qhs x 1 week then i* LORAZEPAM 1 MG TABLET Take 1 tablet 30-60min prior * NICOTINE 14 MG/24 HR DAILY TR* Apply 1 Patch as directed neela * CLINDAMYCIN HCL 300 MG CAPSULE Take 1 capsule by mouth four * SERTRALINE 50 MG TABLET TAKE ONE HALF (1/2) TABLET BY* QUETIAPINE ORAL QUEtiapine Seroquel XR Active* ONDANSETRON 4 MG DISINTEGRATI* Take 1 tablet by mouth every * BENZONATATE 200 MG CAPSULE Take 1 capsule by mouth three* ALBUTEROL SULFATE HFA 90 MCG/* Inhale 2 Puffs as instructed * GABAPENTIN 300 MG CAPSULE Take 1 capsule by mouth daily* CYCLOBENZAPRINE 10 MG TABLET Take 1 tablet by mouth three * Patient not taking: Reported on 11/18/2019 Problem List As Of Date 02/09/2020 Noted Resolved Routine gynecological examination [Z01.419] 05/17/2008 Class: Chronic More... More... Family history of diabetes mellitus [Z83.3] 05/17/2008 More... Calculus of kidney [N20.0] 05/17/2008 More... Allergic rhinitis, cause unspecified [J30.9] 05/17/2008 More... Migraine without aura [G43.009] 05/17/2008 More... Smoker [F17.200] 05/17/2008 More... Impaired fasting glucose [R73.01] 05/17/2008 More... Benign liver cyst [K76.89] 05/24/2010 Class: Chronic More... Ovarian cyst [N83.209] 07/15/2012 Generalized anxiety disorder [F41.1] 03/31/2016 Reactive depression [F32.9] 03/31/2016 More... Adjustment insomnia [F51.02] 03/31/2016 Encounter for screening for cardiovascular diso*03/31/2016 Bilateral low back pain without sciatica [M54.5]06/18/2016 More... Pain in left hip [M25.552] 06/18/2016 Greater trochanteric bursitis [M70.60] 06/18/2016 Hydronephrosis of left kidney [N13.30] 02/05/2017 Hydroureter on left [N13.4] 02/05/2017 Right facial numbness [R20.0] 02/23/2017 Right upper extremity numbness [R20.0] 02/23/2017 Numbness of right lower extremity [R20.0] 02/23/2017 Weakness of right upper extremity [R29.898] 02/23/2017 Weakness of right lower extremity [R29.898] 02/23/2017 Vision blurred [H53.8] 02/23/2017 Lumbar spine pain [M54.5] 02/23/2017 Cervical spine pain [M54.2] 02/23/2017 Abnormal MRI, lumbar spine [R93.7] 02/23/2017 Hydroureter, left [N13.4] 03/30/2017 Lung nodules [R91.8] 01/22/2020 More... Prescriptions ordered this encounter Disp Refills Start End PROMETHAZINE 25 MG TABLET 30 t* 1 02/09/2020 Route: ORAL Sig: Take 1 tablet by mouth every 6 hours as needed. Encounter Status:Closed by ISABEL WARE on 02/09/20 progress on 2020-01 PROGRESS HNO ID: [id number] Normal 02-08-2020 [facility] Author: Isabel Romero) Hugo Mata ([id number]) Service: ? Author Type: Physician Taximeter Repairer Type: Progress Notes Filed: 02/08/2020 10:57 AM Note Text: [facility] VISIT This Team Access Model visit is a phone encounter. It requir ed patient-provider interaction for the medical decision making as documented below. No video was used for evaluation of this patient. Patient consents to visit. Patient location: Abraham Mcgregor is a 39 year old female seen for Hospital f/ u. Patient was dx with acute pancreatitis over the weekend. D/c on 02/04. Symptoms started last Thursday. Was in ER that even and CT with labs showed pancreatitis. Patient denies excessive alcohol use so concern was possibly the seroquel as the cause. See hospital course below: BRIEF HOSPITAL COURSE: The patient is a 39 y/o F w/ PMHx: Obesity, Chronic Pain Syn drome, Migraines, Known Lung Nodules, Hx Uterine CA, Hx Nephrolithi asis, Tobacco use, Anxiety and Depression with Suspected Bipolar disorder recently started on seroquel and sertraline, Recent Dental evaluation with Infection on clindamycin with planned upcoming removal in 4- 6 weeks per patient report who presented to the [facility] ED on 02/01/20 with i ntermittent epigastric pain as well as nausea without emesis. Admission CBC w/ WBC 13.7 with left shift, CMP w/ no market findings, Lipase initially 840 however following admission continue to rise. Patient admitted to medical surgical floor, and maintained o n IV fluids, initially n.p.o. status with transition to clears on 02/03/20 20, lipase trended with repeat trending 840 -> 2353--> 4682-->02/04/20 1 636-->02/05/20 lipase 584 with continued normal liver functions, CT abdomen and pelvis with 2 mm nonobstructing right lower pole renal stone, cysti c structure right lower pelvis measuring up to 2 cm suspected to be resi dual ovarian tissue, multiple stable cystic liver lesions, status post ch olecystectomy, denies alcohol intake being heavy, recently initiated Seroqu el and possibly sertraline as etiology for pancreatitis therefore h eld with recommended early follow-up with psychiatric. She denied any severe depression or manic phases prior nor any suicidal ideations. Patient as noted with ercent acute dental infection, thus continued pat ient clindamycin and encourage continued follow-up with dental re sidency program with planned resection of this tooth per her report. Patient clinically improved, tolerated clears and fulls eventually w ith improved pain thus discharged to home with primary care follow-up as well as requested continued evaluation early with psychiatry and pam luz as previously arranged. ? States she still doesn't feel well. Still having some nausea but able to tolerate small amount o f food. Able to have jello and mac'n'cheese. They have her off of the seroquel and she has talked with [facility] office for what to do next. She has been taking oxycodone every 4 hours but has not need any yet today. Does mention a sore on her forearm. States getting worse. Red and hardened. 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 States she noticed it first in hospital. She is unable to send picture or have video conference. Is w illing to come to . HISTORY REVIEWED (electronic chart updated): - medical history - medications - allergies REVIEW OF SYSTEMS: As noted in HPI PHYSICAL EXAMINATION: [facility]/10/[facility] No vitals taken. Deferred physical exam as visit was completed over the phone . However patient sounds well without signs of shortness of breath or distress. ASSESSMENT: (K85.90) Acute pancreatitis, unspecified complication status , unspecified pancreatitis type (primary encounter diagnosis) PLAN: ASSESSMENT/PLAN: 1. Acute pancreatitis, unspecified complication status, unsp ecified pancreatitis type - ICD9: 577.0, ICD10: K85.90 Improving. Will recheck labs. Patient to come into to have arm and mouth evaluated to benito etermderek if developing cellulitis since I cannot evaluate via telephone. ISABEL ARIAS PA-C Total appointment time on phone with patient = 30+ minutes progress on 2020-01 PROGRESS HNO ID: [id number] Normal 02-07-2020 [facility] Author: Yvette Huffman RN Kimberly ([id number]) Service: ? Author Type: ? Type: Progress Notes Filed: 02/07/2020 11:10 AM Note Text: TRANSITION CARE MANAGEMENT (TCM) INITIAL CONTACT Provider Action/FYI: Apt scheduled for 02-08-2020 Initial contact with patient post discharge, spoke to pt. Patient identified by name and . TRANSITION CARE MANAGEMENT: Date of Outreach: 02/07/2020 Outreach Attempt 1: Contact Made Date of Discharge 02/05/2020 Some recent data might be hidden SUMMARY: -Pt discharged from [facility] on 02-05-2020. -Follow up appointment on 02-08-2020. -Medication review done yes. -Admitted for: Acute pancreatitis CONCERNS: Pt worried about pain control, is using oxycodone as ordered NEW MEDICATIONS: Oxycodone [Oxyir] 10 mg PO Q4H PRN PRN 5 Days #60 tablet PRN Reason: severe pain Transmission Status: Received by [facility] Pantoprazole Sodium [Protonix] 20 mg PO BID #60 tab Transmission Status: Pending to BENTLEY MATA RD Ondansetron HCl [Zofran] 4 mg PO Q8H PRN PRN #20 tab MEDS HELD/DISCONTINUED: Seroquel stopped, pt relates she is following up with lois bourgeois about this BRIEF HOSPITAL COURSE: The patient is a 39 y/o F w/ PMHx: Obesity, Chronic Pain Syn drome, Migraines, Known Lung Nodules, Hx Uterine CA, Hx Nephrolithi asis, Tobacco use, Anxiety and Depression with Suspected Bipolar disorder recently started on seroquel and sertraline, Recent Dental evaluation with Infection on clindamycin with planned upcoming removal in 4- 6 weeks per patient report who presented to the [facility] ED on 02/01/20 with i ntermittent epigastric pain as well as nausea without emesis. Admission CBC w/ WBC 13.7 with left shift, CMP w/ no market findings, Lipase initially 840 however following admission continue to rise. Patient admitted to medical surgical floor, and maintained o n IV fluids, initially n.p.o. status with transition to clears on 02/03/20, lipase trended with repeat trending 840 -> 2353--> 4682-->02/04/20 1 636-->02/05/20 lipase 584 with continued normal liver functions, CT abdomen and pelvis with 2 mm nonobstructing right lower pole renal stone, cysti c structure right lower pelvis measuring up to 2 cm suspected to be resi dual ovarian tissue, multiple stable cystic liver lesions, status post ch olecystectomy, denies alcohol intake being heavy, recently initiated Seroqu el and possibly sertraline as etiology for pancreatitis therefore h eld with recommended early follow-up with psychiatric. She denied any severe depression or manic phases prior nor any suicidal ideations. Patient as noted with ercent acute dental infection, thus continued pat ient clindamycin and encourage continued follow-up with dental re sidency program with planned resection of this tooth per her report. Patient clinically improved, tolerated clears and fulls eventually w ith improved pain thus discharged to home with primary care follow-up as well as requested continued evaluation early with psychiatry and den natty as previously arranged. DAY OF DISCHARGE PROGRESS NOTE: Subjective: Patient without acute event overnight per self a nd nursing report. Patient tolerating transition to full liquids and no los that abdominal discomfort has improved even since the day prior. Patient denies fever, chills, emesis, chest pain or dyspnea. Patient agreeable to discharge to home given improvement. Patient will be dischar ged with follow-up with primary care physician within 3-5 days in add ition to early follow-up with psychiatry given discontinuation of patient's sertraline and Seroquel as concerned that may be associate with pancrea titis and continued follow-up with dentistry. cnptoutreach on CNPTOUTREACH Patient Outreach (FAMPWS) Normal 0 02-07-2020 Kimberly Debra SALLY MCGREGOR ([id number]) 1980 [facility] Time Provider Department ([id number]) 02/07/20 MARCELINO MEJIA During your visit today, we recorded the following informati on about you: Yvette Huffman RN 02/07/2020 11:10 AM Signed TRANSITION CARE MANAGEMENT (TCM) INITIAL CONTACT Provider Action/FYI: Apt scheduled for 02-08-2020 Initial contact with patient post discharge, spoke to pt. Patient identified by name and . TRANSITION CARE MANAGEMENT: Date of Outreach: 02/07/2020 Outreach Attempt 1: Contact Made Date of Discharge 02/05/2020 Some recent data might be hidden SUMMARY: -Pt discharged from [facility] on 02-05-2020. -Follow up appointment on 02-08-2020. -Medication review done yes. -Admitted for: Acute pancreatitis CONCERNS: Pt worried about pain control, is using oxycodone as ordered NEW MEDICATIONS: Oxycodone [Oxyir] 10 mg PO Q4H PRN PRN 5 Days #60 tablet PRN Reason: severe pain Transmission Status: Received by [facility] Pantoprazole Sodium [Protonix] 20 mg PO BID #60 tab Transmission Status: Pending to [facility] WRIGHT [facility] Ondansetron HCl [Zofran] 4 mg PO Q8H PRN PRN #20 tab MEDS HELD/DISCONTINUED: Seroquel stopped, pt relates she is following up with lois bourgeois about this BRIEF HOSPITAL COURSE: The patient is a 39 y/o F w/ PMHx: Obesity, 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 Admission CBC w/ WBC 13.7 with left shift, CMP w/ no m arket findings, Lipase initially 840 however following admission continue to rise. Patient admitted to medical surgical floor, a nd maintained on IV fluids, initially n.p.o. status with transition to clears on 02/03/2020, lipase trended with repeat trending 840 -> 2353--> 4682-->02/04/20 16 36-->02/05/20 lipase 584 with continued normal liver functions, CT abdomen and pelvis with 2 mm nonobstructing ri ght lower pole renal stone, cystic structur e right lower pelvis measuring up to 2 cm suspected to be residual ovarian tissue, multiple stable cystic live r lesions, status post cholecystectomy, denies alcohol intake being heavy, r ecently initiated Seroquel and possibly sertraline as etiology for pancr eatitis therefore held with recommended early follow-up with psychiatric. She denie d any severe depression or manic phases prior nor any suicida l ideations. Patient as noted with ercent acute dental infection, thus continued patient c lindamycin and encourage continued follow-up with dental residency program with planned resection of this tooth per her report. Patient clinically improved, tolerated clears and fulls eventually with improved pain thus discha rged to home with primary care follow-up as well as requested continued eval uation early with psychiatry and dental as previously arranged. DAY OF DISCHARGE PROGRESS NOTE: Subjective: Patient without acute event overnight per self and nursing report. Patient tolerating transition to full liquids and notes that abdominal discomfort has improved even since the day prior. Patient de nies fever, chills, emesis, chest pain or dyspnea. Patient a greeable to discharge to home given improvement. Patient will be disch arged with follow-up with primary care physician within 3-5 days in addition to early follow-up with psychiatry given discontinuation of patient's sertraline and Sero quel as concerned that may be associate with pancreatitis and continued follow-up with pam ochoa. Allergies As of Date: 02/07/2020 Noted Allergy Reaction ASA (SALICYLATES) 01/27/2011 14 - Other: See Comments Comments: ulcers CONTRAST DYE (IODINE) 05/17/2008 12 - Shortness of Breath FLAGYL (METRONIDAZOLE HCL) 03/11/2010 12 - Shortness of [place] th IBUPROFEN 06/18/2016 8 - GI Upset PENICILLINS 12/07/2009 2 - Rash PREDNISONE 06/18/2016 14 - Other: See Comments Comments: makes agitated and mean Date Reviewed: 01/02/2020 Reviewed by: Ashley Lehman Ma - Fully Assessed Reason for Visit: Transition Of Care [4074] Prescriptions as of 02/07/2020 Sig: TOPIRAMATE 25 MG TABLET Take 1 po qhs x 1 week then i* LORAZEPAM 1 MG TABLET Take 1 tablet 30-60min prior * NICOTINE 14 MG/24 HR DAILY TR* Apply 1 Patch as directed neela * CLINDAMYCIN HCL 300 MG CAPSULE Take 1 capsule by mouth four * SERTRALINE 50 MG TABLET TAKE ONE HALF (1/2) TABLET BY* QUETIAPINE ORAL QUEtiapine Seroquel XR Active* ONDANSETRON 4 MG DISINTEGRATI* Take 1 tablet by mouth every * BENZONATATE 200 MG CAPSULE Take 1 capsule by mouth three* ALBUTEROL SULFATE HFA 90 MCG/* Inhale 2 Puffs as instructed * GABAPENTIN 300 MG CAPSULE Take 1 capsule by mouth daily* CYCLOBENZAPRINE 10 MG TABLET Take 1 tablet by mouth three * Patient not taking: Reported on 11/18/2019 Problem List As Of Date 02/07/2020 Noted Resolved Routine gynecological examination [Z01.419] 05/17/2008 Class: Chronic More... More... Family history of diabetes mellitus [Z83.3] 05/17/2008 More... Calculus of kidney [N20.0] 05/17/2008 More... Allergic rhinitis, cause unspecified [J30.9] 05/17/2008 More... Migraine without aura [G43.009] 05/17/2008 More... Smoker [F17.200] 05/17/2008 More... Impaired fasting glucose [R73.01] 05/17/2008 More... Benign liver cyst [K76.89] 05/24/2010 Class: Chronic More... Ovarian cyst [N83.209] 07/15/2012 Generalized anxiety disorder [F41.1] 03/31/2016 Reactive depression [F32.9] 03/31/2016 More... Adjustment insomnia [F51.02] 03/31/2016 Encounter for screening for cardiovascular diso*03/31/2016 Bilateral low back pain without sciatica [M54.5]06/18/2016 More... Pain in left hip [M25.552] 06/18/2016 Greater trochanteric bursitis [M70.60] 06/18/2016 Hydronephrosis of left kidney [N13.30] 02/05/2017 Hydroureter on left [N13.4] 02/05/2017 Right facial numbness [R20.0] 02/23/2017 Right upper extremity numbness [R20.0] 02/23/2017 Numbness of right lower extremity [R20.0] 02/23/2017 Weakness of right upper extremity [R29.898] 02/23/2017 Weakness of right lower extremity [R29.898] 02/23/2017 Vision blurred [H53.8] 02/23/2017 Lumbar spine pain [M54.5] 02/23/2017 Cervical spine pain [M54.2] 02/23/2017 Abnormal MRI, lumbar spine [R93.7] 02/23/2017 Hydroureter, left [N13.4] 03/30/2017 Lung nodules [R91.8] 01/22/2020 More... Encounter Status:Closed by ISABEL WARE on 02/07/20 emergency report on 2020-01-28 EMERGENCY REPORT [facility] Normal 01-27 [facility] EMERGENCY ROOM REPORT ([id number]) NAME ACCOUNT SEX AGE ADMIT DISCHARGE PT MED. RECORD# NUMBER DATE DATE TYPE SAM, [id number] F 39 01/20/20 01/21/20 Dixon ZHENG [id number] ROOM: ER DATE OF : 1980 DICTATING PHYSICIAN: Ana Alcantar HISTORY OF PRESENT ILLNESS: This patient is a 39-year- old female with a past medical history significant for kidney stones, anxiety and depression, who presents to the Emergency Department for evaluation for dizziness that has been present for the last greater than one week. The patient states the dizziness was accompanied by a syncopal episode with a sync opal episode approximately one week ago. At that point, the patient states that she went to an outside hospital where she was evaluated and discharged home. The patient states this afternoon her dizziness got worse, and she had another syncopal episode in which she fell and hit the back of her head. The patient also endorses shortness of breath and intermittent marge st pain accompanied by headaches with vision changes. She, brown gray, denies palpitations, diaphoresis, nausea, vomiting, diarrhea, urinary symptoms, or focal august rologic deficits. PAST MEDICAL HISTORY: As noted in the HPI. PAST SURGICAL HISTORY: Significant for a cholecystectomy, oo phorectomies bilaterally, kidney surgeries, and a hysterectomy. ALLERGIES: The patient is allergic to penicillin , aspirin, ibuprofen, Flagyl, Phenergan, contrast iodine dye, and Toradol. REVIEW OF SYSTEMS: Ten systems reviewed and nega tive except as noted above in the HPI. PHYSICAL EXAMINATION: Physic al examination reveals a txp-xyp-angcbaqic female in no acute distress, resting c omfortably in bed. The patient is afebrile with a temperature of 36.5. Pulse is in the 80s with a respiratory rate in the teens. The patient's blood pressure is in the 120s/80s with no orthostasis appreciated. The patient's oxygen saturation is in the high 90 s on room air. The patient is alert and oriented x3 with no confusion and with concentra tion intact. Pupils are equal, round, and reactive to light bilaterally with no fixed ga ze. Cranial nerves II through XII are intact. Mucous membranes are moist. Orophar ynx with no edema or erythema. Patient with no cervical lymphadenopathy and no C-spi ne tenderness. Lungs are clear to auscultation bilaterally with no wheezes or crackles appreciated. Heart rate and rhythm are regular with no murmurs. Abdomen is soft, no ntender and nondistended. Patient with strong pulses bilaterally on the DPs. No e bernice appreciated in the lower extremities. The patient's neurologic examination is ne gative for any weakness or sensory deficits. Patient with Page 1 of 2 SALLY MCGREGOR Emergency Room Report SALLY MCGREGOR : 1980 intact gait. HEENT examinati on with horizontal nystagmus appreciated with no vertical nystagmus and no skewing. EMERGENCY DEPARTMENT COURSE AND TREATMENT: This is a 39-year -old female presenting with intra ctable dizziness with syncopal episodes. The patient's presentation is concerning f or an intracranial process versus a cardiac process and is unlikely due to an orthostatic process g iven the patient has no orthostasis on examination. The patient's b loodwork was significant for a negative troponin and an EKG with ST changes in V2 and V3 which have been present on previous EKGs. No leukocytosis with a white co unt of 7.6, stable hemoglobin at 11.7 and a d-dimer of 256, which is elevated, as high n ormal is 230. No electrolyte abnormalities and no renal function impairment. The pat ient's urinalysis was positive for a urinary tract infection with 4+ bacteria, for which the patient was started on ceftriaxone. I discussed with the patient the plan for transfe r to an outside hospital for further evaluation for the positive d-dimer as well as dizziness . I educated the patient that we would not be able to do a V/Q scan here and given that she has never received contrast dye at the hospital I would be hesitant to give he r contrast dye for fear of an anaphylactic reaction. The patient verbalized understan ding of the information given and agreed to the plan for [facility]. Discussed the patient with Dr. Coleman at [facility], who accepted the patient for admission. The patient was transferred to [facility] in stable condition. Dictated By: Ana Alcantar MD 01/21/20 01:30 JOB #: [id number] Transcribed By: thanh 01/21/20 10:04 Electronically signed by: Jennifer Perez MD 01/28/20 00:29 Page 2 of 2 SALLY MCGREGOR Emergency Room Report myco on 2020-01-26 Mycoplasma IgG POS Normal 01-26-2020 Count includes the [facility] ([place]) ([id number]) Comment: Result Comment: INTERPRETATI ON OF MYCOPLASMA BY EIA (Effective 09/19/04): Negative No detectable antib odies to M. pneumoniae. Indicates absence of current or previous infection. Positive Reactive for antibo dies to M. pneumoniae. Indicates a past or recent i nfection. Equivocal Equivocal for anti bodies to M. pneumoniae. Repeat testing by an alterna te method suggested. Performed By: #### CBC, ADIF F, ANEU, BMP, GFR #### [place] [address] progress on 2020-01 PROGRESS HNO ID: [id number] Normal 01-25-2020 [facility] Author: Roxanne Patel MA ([id number]) Service: ? Author Type: Shipping Manager Type: Progress Notes Filed: 01/25/2020 7:39 AM Note Text: Te made to get setup. Roxanne Patel MA cnpn on 2020-01-25 CNPN Telephone (FAMPWS) Normal 01-25-2020 [facility] SALLY MCGREGOR ([id number]) 1980 [facility] Date Time Provider Department ([id number]) 01/25/20 ISABEL ARIAS) [facility] During your visit today, we recorded the following informati on about you: Roxanne Patel MA, MA 01/25/2020 7:39 AM Signed Please help patient get setup for MRI. BROCK Fritz Pss 01/25/2020 11:05 AM Signed Attempted to reach patient and she does not have a voice m ail set up Trying to schedule an MRI of the Brain Milly [facility] 01/25/2020 3:35 PM Signed Spoke with patient and she is having a heart monitor put o n tomorrow for 30 days and does not want to get an MRI at this time. She said she will call back to schedule when they take off heart monitor Allergies As of Date: 01/25/2020 Noted Allergy Reaction ASA (SALICYLATES) 01/27/2011 14 - Other: See Comments Comments: ulcers CONTRAST DYE (IODINE) 05/17/2008 12 - Shortness of Breath FLAGYL (METRONIDAZOLE HCL) 03/11/2010 12 - Shortness of [place] th IBUPROFEN 06/18/2016 8 - GI Upset PENICILLINS 12/07/2009 2 - Rash PREDNISONE 06/18/2016 14 - Other: See Comments Comments: makes agitated and mean Date Reviewed: 01/02/2020 Reviewed by: Ashley Lehman Ma - Fully Assessed Reason for Visit: MRI Appointment [[id number]] Prescriptions as of 01/25/2020 Sig: TOPIRAMATE 25 MG TABLET Take 1 po qhs x 1 week then i* LORAZEPAM 1 MG TABLET Take 1 tablet 30-60min prior * NICOTINE 14 MG/24 HR DAILY TR* Apply 1 Patch as directed neela * CLINDAMYCIN HCL 300 MG CAPSULE Take 1 capsule by mouth four * SERTRALINE 50 MG TABLET TAKE ONE HALF (1/2) TABLET BY* QUETIAPINE ORAL QUEtiapine Seroquel XR Active* ONDANSETRON 4 MG DISINTEGRATI* Take 1 tablet by mouth every * BENZONATATE 200 MG CAPSULE Take 1 capsule by mouth three* ALBUTEROL SULFATE HFA 90 MCG/* Inhale 2 Puffs as instructed * GABAPENTIN 300 MG CAPSULE Take 1 capsule by mouth daily* CYCLOBENZAPRINE 10 MG TABLET Take 1 tablet by mouth three * Patient not taking: Reported on 11/18/2019 Problem List As Of Date 01/25/2020 Noted Resolved Routine gynecological examination [Z01.419] 05/17/2008 Class: Chronic More... More... Family history of diabetes mellitus [Z83.3] 05/17/2008 More... Calculus of kidney [N20.0] 05/17/2008 More... Allergic rhinitis, cause unspecified [J30.9] 05/17/2008 More... Migraine without aura [G43.009] 05/17/2008 More... Smoker [F17.200] 05/17/2008 More... Impaired fasting glucose [R73.01] 05/17/2008 More... Benign liver cyst [K76.89] 05/24/2010 Class: Chronic More... Ovarian cyst [N83.209] 07/15/2012 Generalized anxiety disorder [F41.1] 03/31/2016 Reactive depression [F32.9] 03/31/2016 More... Adjustment insomnia [F51.02] 03/31/2016 Encounter for screening for cardiovascular diso*03/31/2016 Bilateral low back pain without sciatica [M54.5]06/18/2016 More... Pain in left hip [M25.552] 06/18/2016 Greater trochanteric bursitis [M70.60] 06/18/2016 Hydronephrosis of left kidney [N13.30] 02/05/2017 Hydroureter on left [N13.4] 02/05/2017 Right facial numbness [R20.0] 02/23/2017 Right upper extremity numbness [R20.0] 02/23/2017 Numbness of right lower extremity [R20.0] 02/23/2017 Weakness of right upper extremity [R29.898] 02/23/2017 Weakness of right lower extremity [R29.898] 02/23/2017 Vision blurred [H53.8] 02/23/2017 Lumbar spine pain [M54.5] 02/23/2017 Cervical spine pain [M54.2] 02/23/2017 Abnormal MRI, lumbar spine [R93.7] 02/23/2017 Hydroureter, left [N13.4] 03/30/2017 Lung nodules [R91.8] 01/22/2020 More... Encounter Status:Closed by ROXANNE PATEL on 01/26/20 progress on 2020-01 PROGRESS HNO ID: [id number] Normal 01-24-2020 [facility] Author: Isabel (Pa-Kimmie) Hugo Mata ([id number]) Service: ? Author Type: Physician Taximeter Repairer Type: Progress Notes Filed: 01/24/2020 4:03 PM Note Text: DISTANCE HEALTH VISIT This Team Access Model visit is a phone encounter. It requir ed patient-provider interaction for the medical decision making as documented below. No video was used for evaluation of this patient. Patient consents to visit. Patient's location: [place] Chief Complaint No chief complaint on file. HPI Sally Mcgregor is a 39 year old female who presents here to day via phone for ER/hospital Follow Up.. Patient was scheduled for hospital f/u however records are n ot available to review at time of appointment. Patient has had multiple telephone visits, visits, ER visits and phone calls recently with multiple complaints. Previous notes/plan of care: Chest pain and shortness of breath started in november and CT a t ER showed small pneumonia. She was treated with 3 rounds of antibiotic s. Repeat imaging and CXR have been negative. Last week patient was se en in ER 3 times over 1 weekend with all testing negative. Stress test and carotid US were ordered however patient has cancelled or not scheduled those tests. Patient states continuing to have h/a. Through previous eval , suspect tension related and patient was to see pain specialist in [facility]. She has missed or cancelled appointments due to no ride.most recent appointment was scheduled 01/20/2020 (states no transportation). Last year (jul 2019) she was also set up with neuro for continuing h/a, but did n ot get that appointment scheduled. About 3 weeks ago, states she fell in shower and went to ER. We ordered xrays which were normal. Continues to have back pain Recently she has also report tooth pain from fractured tooth . We have asked patient to contact dentist but she states she has not been able to get any local ones to be willing to see her. We have treated 2x for possible tooth infection. Scheduled with dentist February 12. S till on clindamycin. CURRENT Concerns Patient went to ER due to chest pain and shortness of breath over the weekend. She was transferred to [place] in [place]. Reports n ot available but patient states ECHO and labs were normal. . States she received a phone call from an winters And was told negative for Covid. But is being treated for lung infection ?. She was told her WBC elevated and elevated D-dimer. Said she was negative for blood clots. Mentioned needing to get repeat imagining in future. Was also told she had UTI, so is on another antibiotic ?? Bu t she is unsure of what she is taking/will be taking once she picks u p from pharmacy. She did receive phone call from civil preparedness officer last week and w ill be set up for heart monitor. She was suppose to have stress testing done at [facility] today and Carotid US done yesterday, but per patient she cancelled both because s he was in hospital States she plans to talk to Dr. Cueto before resche duling for stress testing. Continues to have headaches. States she cannot get rides to specialists. Amitriptyline helped some but her psychiatrist does not want her on this medication while she is on seroquel. She feels like her h/a have continued to worsen. Has hx of m igraines and was checked for MS in 2017. At that time MRI was negative. B ut given continued worsening Headaches and symptoms patient is gettin g more concerned and having decreasing QOL. States she is not sleep ing due to the pain.. Past medical history, appointments, medications, allergies herman singh. Previous Medical History PAST MEDICAL HISTORY Diagnosis Date - Allergic rhinitis, cause unspecified 05/17/2008 Spring and summer - Benign liver cyst 05/24/2010 CT scan at [facility] 11/2009 and 04/2010 showe 4 mm increase in size . No pain. No elevated LFTs on 03/11/2010. - Calculus of kidney 05/17/[address] Nicolas: Hospitalized age 20, and again later -- no procedures so far [facility]) - Dysmenorrhea - Impaired fasting glucose 05/17/2008 Sugar 104 fasting, 04/21 - MIGRAINE 05/17/2008 Has used imitrex with good response; Keeps Vicodin on hand w hen needed; - Ovarian cyst 07/15/2012 - Smoker 05/17/2008 Started age 26, 1/2 a PPD Previous Surgical History PAST SURGICAL HISTORY Procedure Laterality Date - DANDC, DIAG AND/OR THERAPEUTIC - LIGATE FALLOPIAN TUBE - PAST SURGICAL HISTORY OF uterine ablation - PAST SURGICAL HISTORY OF cyst removal - REMOVAL GALLBLADDER - REMOVAL OF OVARY(S) 2009 Oophorectomy right, still has left - REMOVAL OF OVARY(S) 01/2015 left removed - TOTAL ABDOM HYSTERECTOMY 08/31/06 Hysterectomy, [facility] Family History FAMILY HISTORY Problem Relation Age of Onset - Diabetes Maternal Grandmother - Diabetes Maternal Grandfather - Lipids Maternal Grandfather - Stroke Maternal Grandfather - Coronary Artery Disease Maternal Grandfather - Cataract Maternal Grandfather - Diabetes Paternal Grandmother - Diabetes Paternal Grandfather - Coronary Artery Disease Paternal Grandfather - Thyroid Mother unsure of details - Arthritis Mother fibromyalgia - Blood Disease Mother blood clots, unsure of details (aorta?) - Breast Cancer Maternal Aunt - Lipids Maternal Uncle - Coronary Artery Disease Maternal Uncle - other (ovarian ca) Other maternal cousin Patient Allergies ALLERGIES Allergen Reactions - Asa [Salicylates] Other: See Comments ulcers - Contrast Dye [Iodin* Shortness of Breath - Flagyl [Metronidazo* Shortness of Breath - Ibuprofen GI Upset - Penicillins Rash - Prednisone Other: See Comments makes agitated and mean Current Medications Current Outpatient Medications on File Prior to Visit Medication Sig - clindamycin (CLEOCIN) 300 mg capsule Take 1 capsule by four times daily. - sertraline (ZOLOFT) 50 mg tablet TAKE ONE HALF (/2) TABLE T BY MOUTH EVERY MORNING FOR 6 DAYS, THEN TAKE ONE TABLET EVERY MORNING - quetiapine fumarate (QUETIAPINE ORAL) QUEtiapine Seroquel XR Active 150 MG DAILY September 02, 2019 5:34am 09-02-2019 [facility] ([id number]) - ondansetron orally disintegrating (ZOFRAN ODT) 4 mg disint egrating tablet Take 1 tablet by mouth every 6 hours as needed for Na usea/Vomiting. - Benzonatate 200 mg capsule Take 1 capsule by mouth three t imes daily as needed. - albuterol HFA (VENTOLIN HFA) 90 mcg/actuation inhaler Inha le 2 Puffs as instructed every 4 hours as needed. - gabapentin (NEURONTIN) 300 mg capsule Take 1 capsule by mo coh daily at bedtime for 90 days. - cyclobenzaprine (FLEXERIL) 10 mg tablet Take 1 tablet by m outh three times daily as needed for Muscle Spasm. (Patient not taking: Reported on 11/18/2019 ) No current facility-administered medications on file prior t o visit. Social History Social History Tobacco Use - Smoking status: Former Smoker Packs/day: 0.50 Years: 3.00 Pack years: 1.50 Types: Cigarettes Last attempt to quit: 01/12/2017 Years since quittin.0 - Smokeless tobacco: Never Used - Tobacco comment: Approx. 3 cigarettes daily-1 pack every w [place] Substance Use Topics - Alcohol use: Yes Comment: Occasional - Drug use: No Review of Symptoms REVIEW OF SYSTEMS see HPI EXAM: LMP 08/10/2006 Deferred physical exam as visit was completed over the phone . However patient sounds well without signs of shortness of breath or distress. Talking in complete sentences. Health Maintenance List HIV SCREENING due on 1997 MAMMOGRAM due on 2019 DTAP,TDAP,TD(2 - Td) due on 05/28/2025 ONE PNEUMOVAX PRIOR TO AGE 65 Completed INFLUENZA Completed PAP TESTING Completed HPV TESTING Completed Data reviewed ASSESSMENT/PLAN: 1. Mixed headache - ICD9: 784.0, ICD10: R51 (primary diagnos is) Unclear. But with worsening symptoms, will get MRI. Trial topamax. Ativan x1 for MRI. 2. Other chest pain - ICD9: 786.59, ICD10: R07.89 Continue with civil preparedness officer. Will attempt to get records to see what she was given and di agnosed with. Patient states she was told she may need repeat imaging but not sure why. 3. Chronic mixed headache syndrome - ICD9: 339.89, ICD10: G4 4.89 As #1 - MRI BRAIN WO IVCON 4. Situational anxiety - ICD9: 300.09, ICD10: F41.8 For MRI. - LORAZEPAM 1 MG TABLET Patient asked for child support letter, but I explained that I would not be writing a letter. ISABEL ARIAS PA-C Total appointment time on phone with patient = 40 minutes covid on 2020-01-24 COVID 19 Result SECURITY CHECKER See Below [facility] Normal 01-24-2020 [facility] ([place]) (0000 0) Comment: Result Comment: Negative Negative for COVID19 (SARS C oV2) by PCR. This test was developed and its performance characteristics determined by [facility]'s [facility] [place]. This test has bee n authorized by FDA under an Emergency Use Authorization (EUA). This test has been validated in accordance with the FDA's Guidance Document Policy for Diagnostics Test ing in Laboratories Certified to Perform High Complexity Testing under CLI A prior to Emergency use Authorization for Coronavirus Disease 2019 dur ing the Public Health Emergency issued on November 12, 2019. Performed By: [facility] [employer] [place] [address] Textile Scrap Salvager: Raphael liriano III, M.D. CLIA#: [id number] Phone#: Performed By: #### CBC, ADIF F, ANEU, BMP, GFR #### [place] [address] COVID 19 Source SECURITY CHECKER See Below Normal 01-24-2020 [facility] ([place]) ([id number]) Comment: Result Comment: Nasopharynge al Swab Performed By: [facility] [employer] [place] [address] Textile Scrap Salvager: Raphael liriano III, M.D. CLIA#: [id number] Phone#: Performed By: #### CBC, ADIF F, ANEU, BMP, GFR #### [address] [address] myco on 2020-01-23 Mycoplasma IgM Negative Normal 01-23-2020 Count includes the [facility] ([place]) ([id number]) Comment: Result Comment: INTERPRETATI ON OF MYCOPLASMA BY EIA (Effective 09/19/04): Negative No detectable antib odies to M. pneumoniae. Indicates absence of current or previous infection. Positive Reactive for antibo dies to M. pneumoniae. Indicates a past or recent i nfection. Equivocal Equivocal for anti bodies to M. pneumoniae. Repeat testing by an alterna te method suggested. Performed By: #### CBC, ADIF F, ANEU, BMP, GFR #### [address] [address] crp on 2020-01-23 CRP [Mass/Vol] 0.57 <=0.80 mg/dL Normal 01-23-2020 Count includes the [facility] ([place]) ([id number]) Comment: Performed By: #### CBC, ADIF F, ANEU, BMP, GFR #### [address] [address] cnpn on 2020-01-23 CNPN Telephone (FAMPWS) Normal 01-23-2020 [facility] SALLY MCGREGOR ([id number]) 1980 [facility] Date Time Provider Department ([id number]) 01/23/20 ISABEL ARIAS (MAYA) FAMPWS During your visit today, we recorded the following informati on about you: Lexy Tapia RN 01/23/2020 8:55 AM Signed fyi-Patient calls to report that she went to [facility] with chest pain. Transferred to [facility] and Echo was normal. She will have stress test tomorrow. Awaiting COVID-19 test results . Wanted PCP office aware. Reminded to schedule hospital follow up within two weeks of discharge. Lexy ARIAS PA-C 01/23/2020 9:10 AM Signed Noted. Please request ER records. Roxanne Patel MA, MA 01/23/2020 9:32 AM Signed Sent records to Mello Bauman. BROCK Fritz PA-C 01/24/2020 9:02 AM Signed Patient is scheduled this afternoon for ER Follow up. Basically until I have the ER report and stress test results, theres not much I can do. As we discussed, She is supposed t o be following up with cardiology- has seen [facility] as well. Please reschedule her for later this w [place] so we have time to get the records scanned into chart so I can review while wor [place] remotely. Also in regards to headaches, I have discussed w ith patient that she needs to discuss with neuro or pain specialist an d last time I gave recommendations she stated she wanted to wait and talk with pain specialis t on 01/20/2020? Did she not go to that appointment? Roxanne Patel MA, MA 01/24/2020 9:17 AM Signed Contacted patient states she was in hospital and Tested negative for COVID 19 States she has tried to reschedule her PM appt 3 times but due to insurance there is not [employer] drivers in [place] so waiting o n [facility] and has no way to get there to get transport ation set up offered appt for until we get reocrds will check to see i f they were sent she also canceled her stress test Due to being in the hospital and being transferr ed she states. BROCK Fritz PA-C 01/24/2020 9:28 AM Signed wll discuss with patient this afternoon. Allergies As of Date: 01/23/2020 Noted Allergy Reaction ASA (SALICYLATES) 01/27/2011 14 - Other: See Comments Comments: ulcers CONTRAST DYE (IODINE) 05/17/2008 12 - Shortness of Breath FLAGYL (METRONIDAZOLE HCL) 03/11/2010 12 - Shortness of [place] th IBUPROFEN 06/18/2016 8 - GI Upset PENICILLINS 12/07/2009 2 - Rash PREDNISONE 06/18/2016 14 - Other: See Comments Comments: makes agitated and mean Date Reviewed: 01/02/2020 Reviewed by: Ashley Lehman Ma - Fully Assessed Reason for Visit: hospitalization [Other] Prescriptions as of 01/23/2020 Sig: CLINDAMYCIN HCL 300 MG CAPSULE Take 1 capsule by mouth four * SERTRALINE 50 MG TABLET TAKE ONE HALF (1/2) TABLET BY* QUETIAPINE ORAL QUEtiapine Seroquel XR Active* ONDANSETRON 4 MG DISINTEGRATI* Take 1 tablet by mouth every * BENZONATATE 200 MG CAPSULE Take 1 capsule by mouth three* ALBUTEROL SULFATE HFA 90 MCG/* Inhale 2 Puffs as instructed * GABAPENTIN 300 MG CAPSULE Take 1 capsule by mouth daily* CYCLOBENZAPRINE 10 MG TABLET Take 1 tablet by mouth three * Patient not taking: Reported on 11/18/2019 Problem List As Of Date 01/23/2020 Noted Resolved Routine gynecological examination [Z01.419] 05/17/2008 Class: Chronic More... More... Family history of diabetes mellitus [Z83.3] 05/17/2008 More... Calculus of kidney [N20.0] 05/17/2008 More... Allergic rhinitis, cause unspecified [J30.9] 05/17/2008 More... Migraine without aura [G43.009] 05/17/2008 More... Smoker [F17.200] 05/17/2008 More... Impaired fasting glucose [R73.01] 05/17/2008 More... Benign liver cyst [K76.89] 05/24/2010 Class: Chronic More... Ovarian cyst [N83.209] 07/15/2012 Generalized anxiety disorder [F41.1] 03/31/2016 Reactive depression [F32.9] 03/31/2016 More... Adjustment insomnia [F51.02] 03/31/2016 Encounter for screening for cardiovascular diso*03/31/2016 Bilateral low back pain without sciatica [M54.5]06/18/2016 More... Pain in left hip [M25.552] 06/18/2016 Greater trochanteric bursitis [M70.60] 06/18/2016 Hydronephrosis of left kidney [N13.30] 02/05/2017 Hydroureter on left [N13.4] 02/05/2017 Right facial numbness [R20.0] 02/23/2017 Right upper extremity numbness [R20.0] 02/23/2017 Numbness of right lower extremity [R20.0] 02/23/2017 Weakness of right upper extremity [R29.898] 02/23/2017 Weakness of right lower extremity [R29.898] 02/23/2017 Vision blurred [H53.8] 02/23/2017 Lumbar spine pain [M54.5] 02/23/2017 Cervical spine pain [M54.2] 02/23/2017 Abnormal MRI, lumbar spine [R93.7] 02/23/2017 Hydroureter, left [N13.4] 03/30/2017 Lung nodules [R91.8] 01/22/2020 More... Encounter Status:Closed by ISABEL WARE on 01/24/20 cbc on 2020-01-23 Erythrocyte distribution 14.1 11.5-15.5 % Normal 01-22 [facility] (RBC) [Ratio] [facility] ([place]) ([address]) Comment: Performed By: #### CBC, ADIF F, ANEU, BMP, GFR #### [address] [address] Hematocrit (Bld) [Volume 35.6 34.0-46.0 % Normal 01-22 [facility] fraction] ([place]) (0000 0) Comment: Performed By: #### CBC, ADIF F, ANEU, BMP, GFR #### [address] [address] Hemoglobin (Bld) 11.9 12.0-16.0 G/dL Low 01-23-2020 [facility] [Mass/Vol] ([place]) (000 00) Comment: Performed By: #### CBC, ADIF F, ANEU, BMP, GFR #### [address] [address] MCH (RBC) [Entitic mass] 30.0 27.0-33.0 pg Normal 01-22 [facility] ([place]) (0000 0) Comment: Performed By: #### CBC, ADIF F, ANEU, BMP, GFR #### [address] [address] MCHC (RBC) [Mass/Vol] 33.4 32.0-36.0 G/dL Normal 01-23-20 20 [facility] ([place]) (0000 0) Comment: Performed By: #### CBC, ADIF F, ANEU, BMP, GFR #### [address] [address] MCV (RBC) [Entitic vol] 89.8 80.0-99.0 fL Normal 2019 [facility] ([place]) (0000 0) Comment: Performed By: #### CBC, ADIF F, ANEU, BMP, GFR #### [place] [id number] Platelet mean volume 8.5 6.6-10.5 fL Normal 0 [facility] (Bld) [Entitic vol] ([place]) (39729) Comment: Performed By: #### CBC, ADIF F, ANEU, BMP, GFR #### [address] [address] Platelets (Bld) [#/Vol] 235 150-450 10 3/mcL Normal 2019 [facility] ([place]) (48353) Comment: Performed By: #### CBC, ADIF F, ANEU, BMP, GFR #### [address] [address] RBC (Bld) [#/Vol] 3.97 4.10-5.30 10 6/mcL Low 01-23-2020 [facility] ([place]) (0000 0) Comment: Performed By: #### CBC, ADIF F, ANEU, BMP, GFR #### [address] [address] WBC (Bld) [#/Vol] 10.20 4.50-10.80 10 3/mcL Normal 01-23-2020 [facility] ([place]) (85163) Comment: Performed By: #### CBC, ADIF F, ANEU, BMP, GFR #### [address] [address] bmp on 2020-01-23 Creatinine [Mass/Vol] 0.94 0.50-1.20 mg/dL Normal 01-23-20 20 [facility] ([place]) (34933) Comment: Performed By: #### CBC, ADIF F, ANEU, BMP, GFR #### [address] [address] Urea nitrogen/Creatinine 20.2 10.0-22.0 ratio Normal 01-22 [facility] [Mass ratio] [facility] ([place]) (48882) Comment: Performed By: #### CBC, ADIF F, ANEU, BMP, GFR #### [address] [address] Calcium [Mass/Vol] 9.4 8.4-10.1 mg/dL Normal 01-23-2020 [facility] ([place]) (0000 0) Comment: Performed By: #### CBC, ADIF F, ANEU, BMP, GFR #### [address] [address] Chloride [Moles/Vol] 106 98-110 mEq/L Normal 0 [facility] ([place]) (0000 0) Comment: Performed By: #### CBC, ADIF F, ANEU, BMP, GFR #### [address] [address] CO2 [Moles/Vol] 28 22-32 mEq/L Normal 01-23-2020 [facility] ([place]) (15788) Comment: Performed By: #### CBC, ADIF F, ANEU, BMP, GFR #### [address] [address] Electrolyte Balance 6.0 4.0-15.0 mEq/L Normal 01-23-2020 [facility] ([place]) (0000 0) Comment: Performed By: #### CBC, ADIF F, ANEU, BMP, GFR #### [address] [address] Glucose [Mass/Vol] 91 70-110 mg/dL Normal 01-23-2020 [facility] ([place]) (43356) Comment: Performed By: #### CBC, ADIF F, ANEU, BMP, GFR #### [address] [address] Potassium [Moles/Vol] 4.2 3.5-5.0 mEq/L Normal 01-23-20 20 [facility] ([place]) (0000 0) Comment: Performed By: #### CBC, ADIF F, ANEU, BMP, GFR #### [address] [address] Sodium [Moles/Vol] 140 136-145 mEq/L Normal 01-23-2020 [facility] ([place]) (55820) Comment: Performed By: #### CBC, ADIF F, ANEU, BMP, GFR #### [address] [address] Urea nitrogen [Mass/Vol] 19.0 8.0-22.0 mg/dL Normal 01-22 [facility] ([place]) (64248) Comment: Performed By: #### CBC, ADIF F, ANEU, BMP, GFR #### [address] [address] .morph on 2020-01-13 1 Platelets (Bld) [#/Vol] Normal Normal 2019 [facility] ([place]) (00292) Comment: Result Comment: Few large pl atelets seen. Performed By: #### CBC, ADIF F, ANEU, BMP, GFR #### [address] [address] RBC morphology finding Nom Normal Normal [facility] (d) ([place]) (0000 0) Comment: Performed By: #### CBC, ADIF F, ANEU, BMP, GFR #### [address] [address] .manual diff on -01-22 Basophil %, Manual 0.0 0.0-2.5 % Normal 01-23-2020 [facility] ([place]) (26051) Comment: Performed By: #### CBC, ADIF F, ANEU, BMP, GFR #### [address] [address] Basophil, Abs Manual 0.00 0.00-0.27 10 3/mcL Normal 0 [facility] ([place]) (18096) Comment: Performed By: #### CBC, ADIF F, ANEU, BMP, GFR #### [address] [address] Cells Counted 100 Normal 01-23-2020 [facility] ([place]) (37214) Comment: Performed By: #### CBC, ADIF F, ANEU, BMP, GFR #### [address] [address] Eosinophil %, Manual 0.0 0.0-6.0 % Normal 0 [facility] ([place]) (60530) Comment: Performed By: #### CBC, ADIF F, ANEU, BMP, GFR #### [address] [address] Eosinophil, Abs Manual 0.00 0.00-0.65 10 3/mcL Normal 020 [facility] ([place]) (58091) Comment: Performed By: #### CBC, ADIF F, ANEU, BMP, GFR #### [place] [address] Lymphocyte %, Manual 16.0 20.0-40.0 % Low 0 [facility] ([place]) (88378) Comment: Performed By: #### CBC, ADIF F, ANEU, BMP, GFR #### [address] [address] Lymphocyte, Abs Manual 1.63 0.90-4.32 10 3/mcL Normal 020 [facility] ([place]) (61163) Comment: Performed By: #### CBC, ADIF F, ANEU, BMP, GFR #### [place] [id number] Monocyte %, Manual 5.0 2.0-13.0 % Normal 01-23-2020 [facility] ([place]) (63859) Comment: Performed By: #### CBC, ADIF F, ANEU, BMP, GFR #### [place] [id number] Monocyte, Abs Manual 0.51 0.09-1.40 10 3/mcL Normal 0 [facility] ([place]) (17625) Comment: Performed By: #### CBC, ADIF F, ANEU, BMP, GFR #### [address] [address] Neutrophil %, Manual 79.0 50.0-75.0 % High 0 [facility] ([place]) (01042) Comment: Performed By: #### CBC, ADIF F, ANEU, BMP, GFR #### [place] [address] Neutrophil, Abs Manual 8.06 2.25-8.10 10 3/[facility] Normal 020 [facility] ([place]) (70958) Comment: Performed By: #### CBC, ADIF F, ANEU, BMP, GFR #### [address] [address] .gfr on 2020-01-23 GFR >60 Normal 0 [facility] ([place]) (35854) Comment: Result Comment: GFR Population mean for Afri can [place], Non- Americans Ages 20-29 = 116 mL/min/1.73 sq.m. Ages 30-39 = 107 mL/min/1.73 sq.m. Ages 40-49 = 99 mL/min/1.73 sq.m. Ages 50-59 = 93 mL/min/1.73 sq.m. Ages 60-69 = 85 mL/min/1.73 sq.m. Ages 70+ = 75 mL/min/1.73 sq .m. Chronic Kidney Disease: Less than 60 mL/min/1.73 square meters End Stage Renal Disease: Les s than 15 mL/min/1.73 square meters Performed By: #### CBC, ADIF F, ANEU, BMP, GFR #### [place] [address] GFR Non- >60 Normal 01-22 -2019 [facility] ([place]) (11523) Comment: Result Comment: GFR Population mean for Afri can [place], Non- Americans Ages 20-29 = 116 mL/min/1.73 sq.m. Ages 30-39 = 107 mL/min/1.73 sq.m. Ages 40-49 = 99 mL/min/1.73 sq.m. Ages 50-59 = 93 mL/min/1.73 sq.m. Ages 60-69 = 85 mL/min/1.73 sq.m. Ages 70+ = 75 mL/min/1.73 sq .m. Chronic Kidney Disease: Less than 60 mL/min/1.73 square meters End Stage Renal Disease: Les s than 15 mL/min/1.73 square meters Performed By: #### CBC, ADIF F, ANEU, BMP, GFR #### [address] [address] spag on 2020-01-22 SPAG . Normal 01-22-2020 [facility] - Microbiology [facility] ([facility] ([id number]) PROCEDURE: Streptococcus Pneumoniae Urine Antig [^1 *1] SOURCE: Urine BODY SITE: COLLECTED DATE/TIME: 01/22/20 11:35 EDT RECEIVED DATE/TIME: 01/22/2020 12:14 EDT START DATE/TIME: 01/22/2020 12:14 EDT FREE TEXT SOURCE: FINAL REPORTS Final Report [] Verified Date/Time/Personnel: 01/22/2020 12:53 EDT Presumptive negative for pneumococcal pneumonia, suggesting no current or recent pneumococcal infection. Infection due to Strep pneumoniae cannot be ruled out since the antigen present in the sample may be below the detection limit of the test. Interpretive Data ^1: Streptococcus Pneumoniae Urine Antig This test has not been evalu ated on patients taking antibiotics for greater than 24 hours or on patients who have rece ntly completed an antibiotic regimen. The accuracy of this test has not been proven in young children. Performing Locations *1: This test was performed at: [facility], [address] [place] [address], [id number] , [place] Comment: Performed By: #### CBC, ADIF F, ANEU, BMP, GFR #### [address] [address] respid on 2020-01-13 0 Adenovirus Not Detected Not Detected Normal 01-22-2020 [facility] ([place]) (0000 0) Comment: Performed By: #### CBC, ADIF F, ANEU, BMP, GFR #### [address] [address] Bordetella Not Detected Not Detected Normal 01-22-2020 [facility] Parapertussis Found[facility] ([place]) (63164) Comment: Performed By: #### CBC, ADIF F, ANEU, BMP, GFR #### [address] [address] Bordetella Pertussis Not Detected Not Detected Normal [facility] ([place]) (59495) Comment: Performed By: #### CBC, ADIF F, ANEU, BMP, GFR #### [address] [address] Chlamydophila Not Detected Not Detected Normal 01-22-2020 [facility] pneumoniae Foundatio n ([place]) (71829) Comment: Performed By: #### CBC, ADIF F, ANEU, BMP, GFR #### [address] [address] Coronavirus 229E Not Detected Not Detected Normal [facility] (Not COVID-19) Found ation ([place]) (39593) Comment: Performed By: #### CBC, ADIF F, ANEU, BMP, GFR #### [address] [address] Coronavirus HKU1 Not Detected Not Detected Normal 020 [facility]Not COVID-19[facility] (13385) Comment: Performed By: #### CBC, ADIF F, ANEU, BMP, GFR #### [address] [address] Coronavirus NL63 Not Detected Not Detected Normal 020 [facility] (Not COVID-19) Found ation ([place]) (53490) Comment: Performed By: #### CBC, ADIF F, ANEU, BMP, GFR #### [address] [address] Coronavirus OC43 Not Detected Not Detected Normal 020 [facility] (Not COVID-19) Found ation ([place]) (34846) Comment: Performed By: #### CBC, ADIF F, ANEU, BMP, GFR #### [place] [address] Human Metapneumovirus Not Detected Not Detected Normal [facility] ([place]) (72089) Comment: Performed By: #### CBC, ADIF F, ANEU, BMP, GFR #### [place] [address] Influenza A Not Detected Not Detected Normal 01-22-2020 [facility] ([place]) (0000 0) Comment: Performed By: #### CBC, ADIF F, ANEU, BMP, GFR #### [place] [address] Influenza B Not Detected Not Detected Normal 01-22-2020 [facility] ([place]) (0000 0) Comment: Performed By: #### CBC, ADIF F, ANEU, BMP, GFR #### [place] [address] Mycoplasma Not Detected Not Detected Normal 01-22-2020 [facility] pneumoniae Foundatio n ([place]) (02511) Comment: Performed By: #### CBC, ADIF F, ANEU, BMP, GFR #### [place] [address] Parainfluenza 1 Not Detected Not Detected Normal 01-22-20 20 [facility] ([place]) (29836) Comment: Performed By: #### CBC, ADIF F, ANEU, BMP, GFR #### [place] [address] Parainfluenza 2 Not Detected Not Detected Normal 01-22-20 20 [facility] ([place]) (83355) Comment: Performed By: #### CBC, ADIF F, ANEU, BMP, GFR #### [place] [address] Parainfluenza 3 Not Detected Not Detected Normal 01-22-20 [facility] ([place]) (56619) Comment: Performed By: #### CBC, ADIF F, ANEU, BMP, GFR #### [place] [address] Parainfluenza 4 Not Detected Not Detected Normal 01-22-20 [facility] ([place]) (02526) Comment: Performed By: #### CBC, ADIF F, ANEU, BMP, GFR #### [address] [address] Respiratory Not Detected Not Detected Normal 01-22-2020 [facility] Syncytial Virus Foun dation ([place]) (76227) Comment: Performed By: #### CBC, ADIF F, ANEU, BMP, GFR #### [address] [address] Rhinovirus/Enterovirus Not Detected Not Detected Normal 0 01-22-2020 [facility] ([place]) (83344) Comment: Performed By: #### CBC, ADIF F, ANEU, BMP, GFR #### [address] [address] sonali on 2020-01-22 SONALI . Normal 01-22-2020 [facility] MICRO - Microbiology [facility] ([place]) (24588) PROCEDURE: Legionella Urine Ag [*1] SOURCE: Urine BODY SITE: COLLECTED DATE/TIME: 01/22/20 11:35 EDT RECEIVED DATE/TIME: 01/22/2020 12:14 EDT START DATE/TIME: 01/22/2020 12:14 EDT FREE TEXT SOURCE: FINAL REPORTS Final Report [] Verified Date/Time/Personnel: 01/22/2020 12:53 EDT Presumptive negative for L. pneumophila serogroup 1 antigen in urine, suggesting no recent or current infection. Legionnaire's disease cannot be ruled out since other serogroups and species may also cause disease. Performing Locations *1: This test was performed at: [facility], [address] [place] [address], [address]- , [place] Comment: Performed By: #### CBC, ADIF F, ANEU, BMP, GFR #### [address] [address] ldh on 2020-01-22 LDH 194 120-246 U/L Normal 01-22-2020 [facility]) (48026) Comment: Performed By: #### CBC, ADIF F, ANEU, BMP, GFR #### [facility] [address] [place] [address] fib on 2020-01-22 Fibrinogen 414 250-550 mg/dL Normal 01-22-2020 [facility] ([place]) (66084) Comment: Performed By: #### CBC, ADIF F, ANEU, BMP, GFR #### [facility] [address] [place] [address] ferr on 2020-01-22 Ferritin [Mass/Vol] 40 8-252 ng/mL Normal 01-22-2020 [facility] ([place]) (01918) Comment: Performed By: #### CBC, ADIF F, ANEU, BMP, GFR #### [facility] [address] [place] [address] dimer on 2020-01-22 Fibrin D-dimer FEU [place] <200 0-230 ug/mL Normal 01-22-20 20 [facility] (d) [Mass/Vol] ([place] ) (89624) Comment: Result Comment: Results repo rted in D-DU ng/ml. Negative for D-dimer. DVT/PE is highly unlikely. Note: False negative results may be seen in patients on anticoagulant therapy. The result of the D-Dimer te st should be evaluated in the context of all the clinical and laboratory data available. In those instances where the laboratory result does not agree with the clinical eval uation, additional tests should be performed accordingly. Performed By: #### CBC, ADIF F, ANEU, BMP, GFR #### [facility] [address] [place] [address] [address] [address] angiography chest w/contrast on 2020-01-22 CT ANGIOGRAPHY ORIGINAL Normal 01-22-2020 [facility] CHEST W/CONTRAST CT PULMONARY ANGIOGRAM WITH IV CONTRAST: with post-processing, volume rendering and 3-D acquisitions. This exam was performed according to our departmental dose optimization program, and includes the [facility] ([place]) llowing measures where appli cable: automated exposure control, adjustment of the mAs and/or kVp according to patient size and/or exam, and an iterative reconstruction algorithm. Patient received 13 hour (57538) contrast allergy preparation. CLINICAL STATEMENT: elevated d dimer. Syncope, patient reports pneumonia 2 months ago. History of ovarian cancer. COMPARISON:None. FINDINGS: There is adequate contrast o pacification of the pulmonary arteries. No evidence of pulmonary emboli. Great vessels are normal in caliber. No evidence of thoracic aorta aneurysm or dissection. Heart is n ormal in size. Pericardium i s normal. Mild coronary artery calcifications. No lymphadenopathy. Central airways are patent. There are a few small patches of groundglass density in the RIGHT upper lobe towards the apex. There is a 5 mm RIGHT upper lobe solid pulmonary nodule (image 135 of 210, as w ell as a 4 mm LEFT upper lob e nodule (image 157 of 210). No pleural effusion or pneumothorax. Minimal atelectasis or scarring dependently at the lung bases. No acute osseous abnormality. Degenerative urrutia es are seen within the spine. Limited images of the upper abdomen multiple simple hepatic cysts, measuring up to 9 x 6 cm. IMPRESSION: 1. No pulmonary emboli. 2. Small focus of groundglas s densities in the RIGHT upper lobe may represent an infectious/inflammatory process. Short-term repeat CT thorax in 3 months is recommended to document improvement/resolution. 3. Two solid pulmonary nodul es, one in the RIGHT upper lobe, and one in the LEFT upper lobe measuring up to 5 mm. No priors available for comparison. Recommend continued surveillance given patient's history of ovarian cancer. I have personally reviewed t he images of this examination and agree with the resident's findings and interpretation. Interpreted By: Evelyn Hernandez MD Preliminary Report By: Pal Chavez MD Electronically Signed By: Evelyn Hernandez MD Dictated Date: 01/21/2020 10:09:31 PM Prelim Date: 01/21/2020 10:16:19 PM Sign Date: 01/22/2020 2:05:32 AM Ordering Provider:Juanjose Coleman (Hospitalist) cbc on 2020-01-22 Erythrocyte distribution 13.7 11.5-15.5 % Normal 01-21 [facility] width (RBC) [Ratio] [facility] ([place]) (59103) Comment: Performed By: #### CBC, ADIF F, ANEU, BMP, GFR #### [facility] [address] [place] [address] Hematocrit (Bld) [Volume 36.0 34.0-46.0 % Normal 01-21 [facility] fraction] ([place]) (0000 0) Comment: Performed By: #### CBC, ADIF F, ANEU, BMP, GFR #### [place] [address] Hemoglobin (Bld) 11.9 12.0-16.0 G/dL Low 01-22-2020 [facility] [Mass/Vol] ([place]) (000 00) Comment: Performed By: #### CBC, ADIF F, ANEU, BMP, GFR #### [place] [address] MCH (RBC) [Entitic mass] 29.6 27.0-33.0 pg Normal 01-21 [facility] ([place]) (0000 0) Comment: Performed By: #### CBC, ADIF F, ANEU, BMP, GFR #### [place] [address] MCHC (RBC) [Mass/Vol] 33.0 32.0-36.0 G/dL Normal 01-22-20 20 [facility] ([place]) (0000 0) Comment: Performed By: #### CBC, ADIF F, ANEU, BMP, GFR #### [place] [address] MCV (RBC) [Entitic vol] 89.8 80.0-99.0 fL Normal 2019 [facility] ([place]) (0000 0) Comment: Performed By: #### CBC, ADIF F, ANEU, BMP, GFR #### [place] [address] Platelet mean volume 8.6 6.6-10.5 fL Normal 0 [facility] (Bld) [Entitic vol] ([place]) (28551) Comment: Performed By: #### CBC, ADIF F, ANEU, BMP, GFR #### [place] [id number] Platelets (Bld) [#/Vol] 269 150-450 10 3/mcL Normal 2019 [facility] ([place]) (42318) Comment: Performed By: #### CBC, ADIF F, ANEU, BMP, GFR #### [address] [address] RBC (Bld) [#/Vol] 4.01 4.10-5.30 10 6/mcL Low 01-22-2020 [facility] ([place]) (0000 0) Comment: Performed By: #### CBC, ADIF F, ANEU, BMP, GFR #### [address] [address] WBC (Bld) [#/Vol] 12.20 4.50-10.80 10 3/mcL High 01-22-2020 [facility] ([place]) (0000 0) Comment: Performed By: #### CBC, ADIF F, ANEU, BMP, GFR #### [address] [address] bmp on 2020-01-22 Calcium [Mass/Vol] 9.5 8.4-10.1 mg/dL Normal 01-22-2020 [facility] ([place]) (0000 0) Comment: Performed By: #### CBC, ADIF F, ANEU, BMP, GFR #### [place] [id number] Chloride [Moles/Vol] 106 98-110 mEq/L Normal 0 [facility] ([place]) (0000 0) Comment: Performed By: #### CBC, ADIF F, ANEU, BMP, GFR #### [address] [address] CO2 [Moles/Vol] 24 22-32 mEq/L Normal 01-22-2020 [facility] ([place]) (54136) Comment: Performed By: #### CBC, ADIF F, ANEU, BMP, GFR #### [address] [address] Creatinine [Mass/Vol] 0.76 0.50-1.20 mg/dL Normal 01-22-20 20 [facility] ([place]) (64893) Comment: Performed By: #### CBC, ADIF F, ANEU, BMP, GFR #### [address] [address] Electrolyte Balance 6.0 4.0-15.0 mEq/L Normal 01-22-2020 [facility] ([place]) (0000 0) Comment: Performed By: #### CBC, ADIF F, ANEU, BMP, GFR #### [address] [address] Glucose [Mass/Vol] 149 70-110 mg/dL High 01-22-2020 [facility] ([place]) (70437) Comment: Performed By: #### CBC, ADIF F, ANEU, BMP, GFR #### [address] [address] Potassium [Moles/Vol] 4.1 3.5-5.0 mEq/L Normal 01-22-20 [facility] ([place]) (0000 0) Comment: Performed By: #### CBC, ADIF F, ANEU, BMP, GFR #### [address] [address] Sodium [Moles/Vol] 136 136-145 mEq/L Normal 01-22-2020 [facility] ([place]) (99755) Comment: Performed By: #### CBC, ADIF F, ANEU, BMP, GFR #### [address] [address] Urea nitrogen [Mass/Vol] 12.0 8.0-22.0 mg/dL Normal 01-21 [facility] ([place]) (24349) Comment: Performed By: #### CBC, ADIF F, ANEU, BMP, GFR #### [address] [address] Urea nitrogen/Creatinine 15.8 10.0-22.0 ratio Normal 01-21 [facility] [Mass ratio] Foundat ion ([place]) (97068) Comment: Performed By: #### CBC, ADIF F, ANEU, BMP, GFR #### [address] [address] .neuabs on Neutrophils (Bld) 10.70 2.25-8.10 10 3/mcL High 01-22-2020 [facility] [#/Vol] [facility] ([place]) (29766) Comment: Performed By: #### CBC, ADIF F, ANEU, BMP, GFR #### [address] [address] .gfr on 2020-01-22 GFR Non- >60 Normal 01-21 [facility] ([place]) (05582) Comment: Result Comment: GFR Population mean for Afri can [place], Non- Americans Ages 20-29 = 116 mL/min/1.73 sq.m. Ages 30-39 = 107 mL/min/1.73 sq.m. Ages 40-49 = 99 mL/min/1.73 sq.m. Ages 50-59 = 93 mL/min/1.73 sq.m. Ages 60-69 = 85 mL/min/1.73 sq.m. Ages 70+ = 75 mL/min/1.73 sq .m. Chronic Kidney Disease: Less than 60 mL/min/1.73 square meters End Stage Renal Disease: Les s than 15 mL/min/1.73 square meters Performed By: #### CBC, ADIF F, ANEU, BMP, GFR #### [place] [id number] GFR >60 Normal 0 [facility] ([place]) (32966) Comment: Result Comment: GFR Population mean for Afri can [place], Non- Americans Ages 20-29 = 116 mL/min/1.73 sq.m. Ages 30-39 = 107 mL/min/1.73 sq.m. Ages 40-49 = 99 mL/min/1.73 sq.m. Ages 50-59 = 93 mL/min/1.73 sq.m. Ages 60-69 = 85 mL/min/1.73 sq.m. Ages 70+ = 75 mL/min/1.73 sq .m. Chronic Kidney Disease: Less than 60 mL/min/1.73 square meters End Stage Renal Disease: Les s than 15 mL/min/1.73 square meters Performed By: #### CBC, ADIF F, ANEU, BMP, GFR #### [address] [address] .auto diff on 01-21 Ammonia (P) [Mass/Vol] 0.30 0.09-1.40 10 3/mcL Normal 01-21-2 020 [facility] ([place]) (60844) Comment: Performed By: #### CBC, ADIF F, ANEU, BMP, GFR #### [address] [address] Basophils (Bld) 0.00 0.00-0.27 10 3/mcL Normal 01-22-2020 [facility] [#/Vol] [facility] ([place]) (04064) Comment: Performed By: #### CBC, ADIF F, ANEU, BMP, GFR #### [address] [address] Basophils/100 WBC (Bld) 0.3 0.0-2.5 % Normal 2019 [facility] ([place]) (0000 0) Comment: Performed By: #### CBC, ADIF F, ANEU, BMP, GFR #### [address] [address] Eosinophils (Bld) 0.00 0.00-0.65 10 3/mcL Normal 01-22-2020 [facility] [#/Vol] [facility] ([place]) (00383) Comment: Performed By: #### CBC, ADIF F, ANEU, BMP, GFR #### [address] [address] Eosinophils/100 WBC (Bld) 0.1 0.0-6.0 % Normal 01-12 0 [facility] ([place]) (0000 0) Comment: Performed By: #### CBC, ADIF F, ANEU, BMP, GFR #### [address] [address] Lymphocytes (Bld) 1.10 0.90-4.32 10 3/mcL Normal 01-22-2020 [facility] [#/Vol] [facility] ([place]) (49617) Comment: Performed By: #### CBC, ADIF F, ANEU, BMP, GFR #### [address] [address] Lymphocytes/100 WBC (Bld) 9.3 20.0-40.0 % Low - 0-2019 [facility] ([place]) (0000 0) Comment: Performed By: #### CBC, ADIF F, ANEU, BMP, GFR #### [address] [address] Monocytes/100 WBC (Bld) 2.2 2.0-13.0 % Normal 2019 [facility] ([place]) (0000 0) Comment: Performed By: #### CBC, ADIF F, ANEU, BMP, GFR #### [address] [address] Neutrophils/100 WBC (Bld) 88.1 50.0-75.0 % High 01-12 [facility] ([place]) (0000 0) Comment: Performed By: #### CBC, ADIF F, ANEU, BMP, GFR #### [address] [address] urinalysis with microscopy on 2020-01-21 Amorphous NONE Normal 01-21-2020 [facility] (29782) Comment: Performed By: #### [id number] ## ## [facility],[address] [place] [address] Bacteria LM.HPF (Urine sed) 3+ Normal [facility] [#/Area] [facility] ( 93783) Comment: Performed By: #### [id number] ## ## [facility],[address] [place] [address] Bilirubin [Mass/Vol] NEG NORMAL: NEGATIVE mg/dL Normal [facility] (62703) Comment: Performed By: #### [id number] ## ## [facility],[address] [place] [address] Blood 10 NORMAL: NEGATIVE Abnormal 01-21-2020 [facility] (81212) Comment: Performed By: #### [id number] ## ## [facility],[address] [place] [address] Casts LM.LPF (Urine sed) NONE Normal 01-20 [facility] [#/Area] [facility] ( 11089) Comment: Performed By: #### [id number] ## ## [facility],[address] [place] [address] Clarity (U) sl.cloudy NORMAL: CLEAR Normal 01-21-2020 [facility] ( 36304) Comment: Performed By: #### [id number] ## ## [facility],[address] [place] [address] Color (U) p.yel NORMAL: YELLOW Normal 01-21-2020 [facility] (11337) Comment: Performed By: #### [id number] ## ## [facility],[address] [place] [address] Crystals LM Nom (Urine sed) NONE Normal [facility] ( 69444) Comment: Performed By: #### [id number] ## ## [facility],[address] [place] [address] Epi Cells MANY Normal 01-21-2020 [facility] (48772) Comment: Performed By: #### [id number] ## ## [facility],[address] [place] [address] Glucose [Mass/Vol] NORM NORMAL: NORMAL Normal 2019 [facility] ( 36470) Comment: Performed By: #### [id number] ## ## [facility],[address] [place] [address] Ketone NEG NORMAL: NEGATIVE Normal 01-21-2020 [facility] (02350) Comment: Performed By: #### [id number] ## ## [facility],[address] [place] [address] Mucous NONE Normal 01-21-2020 [facility] (30689) Comment: Performed By: #### [id number] ## ## [facility],[address] [place] [address] 96716 Nitrite Ql (U) NEG NORMAL: NEGATIVE Normal 01-21-20 [facility] ( 20660) Comment: Performed By: #### [id number] ## ## [facility],[address] [place] [address] 95817 pH (Bld) 5 NORMAL: 5.0-8.0 Normal 01-21-2020 [facility] (87741) Comment: Performed By: #### [id number] ## ## [facility],[address] [place] [address] 72376 Protein (U) NEG NORMAL: NEGATIVE mg/dL Normal 01-21-2020 [facility] [Mass/Vol] [facility] (43419) Comment: Performed By: #### [id number] ## ## [facility],[address] [place] [address] 69843 Rbc 0-5 0-3 / hpf Normal 01-21-2020 [facility] (59889) Comment: Performed By: #### [id number] ## ## [facility],[address] [place] [address] 54686 Sp [place] 1.020 NORMAL: 1.010-1.030 Normal 0 [facility] ( 56631) Comment: Performed By: #### [id number] ## ## [facility],[address] [place] [address] 92541 Specimen type Nom (Spec) UNSPECIFIED Normal [facility] ( 63229) Comment: Performed By: #### [id number] ## ## [facility],[address] [place] [address] 56327 URINALYSIS WITH MICROSCOPY Normal [facility] (24417) Comment: Result Comment: URINALYSIS Performed By: #### [id number] ## ## [facility],[address] [place] [address] 58071 Urobilinog NORM NORMAL: NORMAL Normal 01-21-2020 [facility] (04088) Comment: Performed By: #### [id number] ## ## [facility],[address] [place] [address] 62959 Wbc 1-5 0-5 / hpf Normal 01-21-2020 [facility] (29269) Comment: Performed By: #### [id number] ## ## [facility],[address] [place] [address] 53187 WBC (Bld) [#/Vol] NEG NORMAL: NEGATIVE 10*3/uL Normal 01-20 [facility] (39300) Comment: Result Comment: URINE MICROS COPIC Performed By: #### [id number] ## ## [facility],[address] [place] [address] 51369 Yeast LM Ql (Urine sed) NONE Normal 2019 [facility] (93796) Comment: Performed By: #### [id number] ## ## [facility],[address] [place] [address] 24642 troponin on 2020-01 Troponin I.cardiac <0.01 0.00 - 0.05 ng/mL Normal 0 [facility] [Mass/Vol] [facility] (49060) Comment: Result Comment: Elevated tro ponin (above the 99th percentile) usually indicates myocardial ischemia. Results must be in terpreted within the clinical setting. 1.Non-ischemic pathology can also cause elevated troponin levels (e.g., acute pulmonary embol ism, myocarditis, pericarditis, heart failure, intracranial injury, rhabdom yolisis, sepsis, shock and renal insufficiency). 2.Approximately 1% of health y adults have elevated troponin levels. 3.Analytical false positive results rarely occur(due to multiple interferences such as heterophile antibodi es). Performed By: #### [id number] ## ## [facility],[address] [place] [address] 71751 tropi on 2020-01-21 Troponin I.cardiac <0.015 0.000-0.040 ng/mL Normal 0 [facility] [Mass/Vol] [facility] [place] (10252) Comment: Result Comment: Troponin I r eference ranges (05/22/14): 0.00-0.040 ng/mL Negative an d non-diagnostic. >0.040 ng/mL Consistent with cardiac damage, increased clinical risk and possibility of myocardial in farction. Serial measurements, a rise & fall in test results, clinical histo ry, appropriate symptoms and/or ECG changes may help assess possibility of NV. *Other non-acute coronary sy ndrome conditions such as CHF, myoc arditis, pulmonary emboli, sepsis and cardiac surgery could result in myoc ardial damage and increased troponi n levels. Performed By: #### TROPI ### # [place] [address] serum qual on 2020-01-21 EXTERNAL QC DONE? YES Normal 01-21-2020 [facility] (07233) Comment: Performed By: #### [id number] ## ## [facility],[address] [place] [address] INTERNAL QC PASS Normal 01-21-2020 [facility] (32421) Comment: Performed By: #### [id number] ## ## [facility],[address] [place], [place] [id number] SER NEGATIVE NEGATIVE Normal 01-21-2020 [facility] (77808) Comment: Performed By: #### [id number] ## ## [facility],[address] [place] [address] 45636 d-dimer, quantitative on 2020-01-21 D-DIMER QUANT 256 0 - 230 ng/ml High 01-21-2020 [facility] (32039) Comment: Performed By: #### [id number] ## ## [facility],[address] [place] [address] 50743 D-DIMER, QUANTITATIVE Normal 01-21-20 20 [facility] (41264) Comment: Result Comment: QUANT D-DIME R Performed By: #### [id number] ## ## [facility],[address] [place], [place] [id number] ct brain w/o contrast on 2020-01-21 CT BRAIN W/O [facility] Normal 0 [facility] [address] [place] [address] (39524) Patient: SALLY MCGREGOR Phone#: : 1980 Age: 39 Gender: F Pt. Type: ER Account: [id number] Location: 052 Ordering: DR. ANA ALCANTAR Exam Date: 01/20/202023:41 Family Phys: ISABEL ARIAS Charge Code: [id number] Physician: [place] Order #: [id number] DLP Dose#: 57.50 PROCEDURE: CT BRAIN WITHOUT CONTRAST COMPARISON: [facility], CT, BRAIN W/O CON, 01/29/2017, 22:39. INDICATIONS: Dizziness. TECHNIQUE: CT images were obtained without contrast material . All CT scans at this facilit y use dose modulation, iterative reconstruction, and/or weight based dosing when appropriate to reduce radiation dos e to as low as reasonably achievable. IV CONTRAST: No IV contrast used,0ml TOTAL DOSE: 57.50 CTDIvol(mGy) FINDINGS: CEREBRUM: No edema, hemorrhage, mass, or inappropriate atrop hy. CEREBELLUM: No edema, hemorrhage, mass, or inappropriate atr ophy. BRAINSTEM: No edema, hemorrhage, mass, or inappropriate atro phy. CSF SPACES: Ventricles, cist erns, and sulci are appropriate for age. No hydrocephalus, subarachnoid hemorrhage, or mass. SKULL: No mass or other significant visible lesion. SINUSES: Limited views demonstrate no si gnificant mucosal thickening or fluid. ORBITS: Limited views are unremarkable. OTHER: Negative. CONCLUSION: 1. No appreciable acute intracranial abnormality or interval change. Dictated by: Kelsey Mae MD on 01/21/2020 at 18:04 Continued Report - Page 2 of 2 Patient: SALLY MCGREGOR Phone#: : 1980 Age: 39 Gender: F Pt. Type: ER Account: [id number] Location: 052 Ordering: DR. ANA ALCANTAR Exam Date: 01/20/2020/23:41 Family Phys: ISABEL ARIAS Charge Code: [id number] Physician: [place] Order #: [id number] DLP Dose#: 57.50 Approved by: Kelsey Mae MD on 01/21/2020 at 18:04 cmp with egfr on 31-01-09 Age - Reported 39 years Normal 01-21-2020 [facility] (85984) Comment: Performed By: #### [id number] ## ## [facility],[address] [place] [address] 28001 Albumin [Mass/Vol] 4.3 3.4 - 4.8 g/dL Normal 01-21-2020 [facility] ( 66167) Comment: Performed By: #### [id number] ## ## [facility],[address] [place] [address] 33537 Albumin/Globulin [Mass 1.5 0.9 - 1.6 {ratio} Normal 020 [facility]] [facility] (47258) Comment: Performed By: #### [id number] ## ## [facility],[address] [place] [address] 75601 ALK PHOS 71 38 - 126 U/L Normal 01-21-2020 [facility] (99976) Comment: Performed By: #### [id number] ## ## [facility],[address] [place] [address] 57216 ALT/SGPT 11 8 - 35 U/L Normal 01-21-2020 [facility] (93511) Comment: Performed By: #### [id number] ## ## [facility],[address] [place] [address] 95923 Anion gap [Moles/Vol] 12 10 - 20 mmol/L Normal 01-21-20 [facility] ( 69095) Comment: Performed By: #### [id number] ## ## [facility],[address] [place] [address] 46351 AST/SGOT 12 13 - 39 U/L Low 01-21-2020 [facility] (39479) Comment: Performed By: #### [id number] ## ## [facility],[address] [place] [address] 59378 B/C RATIO 19 0 - 30 ratio Normal 01-21-2020 [facility] (05669) Comment: Performed By: #### [id number] ## ## [facility],1 [facility] [address]12 Bilirubin [Mass/Vol] 0.3 0.0 - 1.5 mg/dl Normal 0 [facility] ( 68556) Comment: Performed By: #### [id number] ## ## [facility],[address] [place] [address] 79599 Calcium [Mass/Vol] 9.2 8.6 - 10.2 mg/dl Normal 01-21-2020 [facility] ( 52209) Comment: Performed By: #### [id number] ## ## [facility],[address] [place] [address] 05255 Chloride [Moles/Vol] 102 98 - 107 mmol/L Normal 0 [facility] ( 70203) Comment: Performed By: #### [id number] ## ## [facility],[address] [place] [address] 60336 CO2 [Moles/Vol] 25.6 21.0 - 31.0 mmol/L Normal 01-21-2020 [facility] ( 76904) Comment: Performed By: #### [id number] ## ## [facility],[address] [place] [address] 87446 Creatinine [Mass/Vol] 1.1 0.6 - 1.2 mg/dl Normal 01-21-20 20 [facility] ( 84067) Comment: Performed By: #### [id number] ## ## [facility],[address] [place] [address] 15929 GFR/1.73 sq M >60 60 - 999 mL/min/{1.73_m2} Normal 0 [facility] non-blacks MDRD (000 00) (S/P/Bld) [Vol rate/Area] Comment: Result Comment: ACCORDING TO THE NATIONAL KIDNEY DISEASE EDUCATION PROGRAM(NKDE), A NORMAL eGFR IS A VALUE GREATER THAN OR E QUAL TO 60 ML/MIN/1.73 SQ METERS. CHRONIC KIDNEY DISEASE: <60m L/MIN/1.73 SQ METERS KIDNEY FAILURE: <15mL/MIN/1. 73 SQ METERS THIS TEST SHOULD ONLY BE USE D FOR PATIENTS 18 YEARS OF AGE AND OLDER. Performed By: #### [id number] ## ## [facility],[address] [place] [address] 34539 GFR/1.73 sq M predicted among Normal 01-21-2020 [facility] non-blacks MDRD (S/P/Bld) [Vol Hospital (53806) rate/Area] Comment: Result Comment: COMPREHENSIV E METABOLIC PANEL Performed By: #### [id number] ## ## [facility],[address] [place] [address] 53754 GFR/1.73 sq M predicted 55 60 - 999 ML/MINUTE Low 2019 [facility] among non-blacks MDRD Hospital (16243) (S/P/Bld) [Vol rate/Area] Comment: Performed By: #### [id number] ## ## [facility],[address] [place] [address] 77109 Globulin (S) [Mass/Vol] 2.9 1.5 - 3.8 G/DL Normal 2019 [facility] ( 89339) Comment: Performed By: #### [id number] ## ## [facility],[address] [place] [address] 57488 Glucose [Mass/Vol] 100 74 - 106 mg/dl Normal 01-21-2020 [facility] ( 61518) Comment: Performed By: #### [id number] ## ## [facility],[address] [place] [address] 31874 Potassium [Moles/Vol] 3.6 3.5 - 5.1 mmol/L Normal 01-21-20 20 [facility] ( 00464) Comment: Performed By: #### [id number] ## ## [facility],[address] [place] [address] 34012 Protein [Mass/Vol] 7.2 6.4 - 8.3 g/dl Normal 01-21-2020 [facility] ( 57516) Comment: Performed By: #### [id number] ## ## [facility],[address] [place] [address] 23172 Sodium [Moles/Vol] 136 136 - 145 mmol/l Normal 01-21-2020 [facility] ( 64492) Comment: Performed By: #### [id number] ## ## [facility],[address] [place] [address] 82991 Urea nitrogen [Mass/Vol] 21 6 - 20 mg/dl High 01-20 [facility] ( 51948) Comment: Performed By: #### [id number] ## ## [facility],[address] [place] [address] 69517 chest 2 views on 31-01-09 CHEST 2 VIEWS [facility] Normal 01-21-20 [facility] [address] [place] [address] 26469 (76283) Patient: SALLY MCGREGOR Phone#: : 1980 Age: 39 Gender: F Pt. Type: ER Account: [id number] Location: 052 Ordering: DR. ANA ALCANTAR Exam Date: 01/20/2020/23:45 Family Phys: ISABEL ARIAS Charge Code: [id number] Physician: [place] Order #: [id number] DLP Dose#: PROCEDURE: X-RAY CHEST 2 VIEWS COMPARISON: [facility], , CHEST 2 VIEWS, 11/25/2019, 0:08. INDICATIONS: Shortness of breath. FINDINGS: LUNGS: Normal. No significant pulmonary parenchymal abnormal ities. VASCULATURE: Normal. Unremarkable pulmonary vasculature. CARDIAC: Cardiomegaly. MEDIASTINUM: Normal. No visible mass or adenopathy. PLEURA: Normal. No effusion or pleural thickening. BONES: Normal. No fracture or visible bony lesion. OTHER: Surgical clips are present in the upper abdomen CONCLUSION: No acute disease. No significant change has occu rred. Dictated by: Kelsey Mae MD on 01/21/2020 at 16:26 Approved by: Kelsey Mae MD on 01/21/2020 at 16:26 cbc on 2020-01-21 Erythrocyte distribution 13.6 11.5-15.5 % Normal 01-20 [facility] width (RBC) [Ratio] [facility] ([place]) (97940) Comment: Performed By: #### CBC, ADIF F, ANEU, BMP, GFR #### [address] [address] Hematocrit (Bld) [Volume 35.6 34.0-46.0 % Normal 01-20 [facility]] ([place]) (0000 0) Comment: Performed By: #### CBC, ADIF F, ANEU, BMP, GFR #### [address] [address] Hemoglobin (Bld) 11.4 12.0-16.0 G/dL Low 01-21-2020 [facility] [Mass/Vol] ([place]) (000 00) Comment: Performed By: #### CBC, ADIF F, ANEU, BMP, GFR #### [address] [address] MCH (RBC) [Entitic mass] 29.5 27.0-33.0 pg Normal 01-20 [facility] ([place]) (0000 0) Comment: Performed By: #### CBC, ADIF F, ANEU, BMP, GFR #### [address] [address] MCHC (RBC) [Mass/Vol] 32.2 32.0-36.0 G/dL Normal 01-21-20 [facility] ([place]) (0000 0) Comment: Performed By: #### CBC, ADIF F, ANEU, BMP, GFR #### [address] [address] MCV (RBC) [Entitic vol] 91.7 80.0-99.0 fL Normal 2019 [facility] ([place]) (0000 0) Comment: Performed By: #### CBC, ADIF F, ANEU, BMP, GFR #### [place] [address] Platelet mean volume 8.6 6.6-10.5 fL Normal 0 [facility] (Bld) [Entitic vol] ([place]) (02755) Comment: Performed By: #### CBC, ADIF F, ANEU, BMP, GFR #### [place] [address] Platelets (Bld) [#/Vol] 250 150-450 10 3/mcL Normal 2019 [facility] ([place]) (77085) Comment: Performed By: #### CBC, ADIF F, ANEU, BMP, GFR #### [place] [address] RBC (Bld) [#/Vol] 3.88 4.10-5.30 10 6/mcL Low 01-21-2020 [facility] ([place]) (0000 0) Comment: Performed By: #### CBC, ADIF F, ANEU, BMP, GFR #### [place] [address] WBC (Bld) [#/Vol] 6.20 4.50-10.80 10 3/mcL Normal 01-21-2020 [facility] ([place]) (13021) Comment: Performed By: #### CBC, ADIF F, ANEU, BMP, GFR #### [place] [address] cbc + diff on 01-20 Basophils (Bld) 0.10 0.00 - 0.10 x10EE3/UL Normal 01-21-2020 [facility] [#/Vol] [facility] (18085) Comment: Performed By: #### [id number] ## ## [facility],[address] [place] [address] 35638 Basophils/100 WBC (Bld) 1.1 0.0 - 2.0 % Normal 2019 [facility] ( 62991) Comment: Performed By: #### [id number] ## ## [facility],[address] [place] [address] 33222 CBC + DIFF Normal 01-21-2020 [facility] (88075) Comment: Result Comment: CBC-COMPLETE BLOOD COUNT Performed By: #### [id number] ## ## [facility],[address] [place], [place] [id number] Eosinophils (Bld) 0.40 0.00 - 0.50 x10EE3/UL Normal 01-21-2020 [facility] [#/Vol] [facility] (80131) Comment: Performed By: #### [id number] ## ## [place] [id number] Eosinophils/100 WBC (Bld) 5.5 0.0 - 7.0 % Normal [facility] ( 77964) Comment: Performed By: #### [id number] ## ## [address] [address] Erythrocyte distribution 13.5 12.0 - 15.6 % Normal [facility] width (RBC) [Ratio] [facility] (86940) Comment: Performed By: #### [id number] ## ## [address] [address] Hematocrit (Bld) [Volume 33.8 34.0 - 46.0 % Low [facility] fraction] [facility] ( 29635) Comment: Performed By: #### [id number] ## ## [address] [address] Hemoglobin (Bld) 11.7 12.0 - 16.0 g/dl Low 01-21-2020 [facility] [Mass/Vol] [facility] (34986) Comment: Performed By: #### [id number] ## ## [address],[place] [address] Lymphocytes (Bld) 2.30 0.80 - 2.80 x10EE3/UL Normal 01-21-2020 [facility] [#/Vol] [facility] (86374) Comment: Performed By: #### [id number] ## ## [place] [id number] Lymphocytes/100 WBC (Bld) 30.4 20.0 - 45.0 % Normal [facility] ( 58733) Comment: Performed By: #### [id number] ## ## [address] [address] MANUAL DIFF N/A Normal 01-21-2020 [facility] (77981) Comment: Performed By: #### [id number] ## ## [address] [address] MCH (RBC) [Entitic mass] 31 27 - 33 pg Normal 01-20 [facility] ( 66688) Comment: Performed By: #### [id number] ## ## [address] [address] MCHC (RBC) [Mass/Vol] 35 32 - 36 X10 3 Normal 01-21-20 20 [facility] ( 16848) Comment: Performed By: #### [id number] ## ## [address] [address] MCV (RBC) [Entitic vol] 88 80 - 99 fl Normal 2019 [facility] ( 60929) Comment: Performed By: #### [id number] ## ## [address] [address] Monocytes (Bld) 0.50 0.20 - 1.00 x10EE3/UL Normal [facility]-21-[facility] [#[facility] (42987) Comment: Performed By: #### [id number] ## ## [facility],[address] [place] [address] 26172 MONOS % 6.5 0.0 - 10.0 % Normal 01-21-2020 [facility] (91895) Comment: Performed By: #### [id number] ## ## [facility],[address] [place] [address] 16207 Morphology Adrian (Bld) [Interp] N/A Normal 01-21-2020 [facility] ( 00778) Comment: Performed By: #### [id number] ## ## [facility],[address] [place] [address] 63532 Neutrophils (Bld) 4.30 1.50 - 7.10 x10EE3/UL Normal 01-21-2020 [facility] [#/Vol] [facility] (09096) Comment: Performed By: #### [id number] ## ## [facility],[address] [place] [address] 84535 Neutrophils/100 WBC (Bld) 56.5 46.0 - 76.0 % Normal [facility] ( 36513) Comment: Performed By: #### [id number] ## ## [facility],[address] [place] [address] 48484 Platelet mean volume 8.3 6.6 - 10.5 fl Normal 01-21-20 20 [facility] (Bld) [Entitic vol] [facility] (34107) Comment: Result Comment: AUTOMATED DI FFERENTIAL Performed By: #### [id number] ## ## [facility],[address] [place] [address] 88776 Platelets (Bld) 298 150 - 450 x10EE3/UL Normal 01-21-2020 [facility] [#/Vol] [facility] (48507) Comment: Performed By: #### [id number] ## ## [facility],[address] [place] [address] 72372 RBC (Bld) [#/Vol] 3.82 4.10 - 5.30 x 10EE6/UL Low 0 [facility] ( 44878) Comment: Performed By: #### [id number] ## ## [facility],[address] [place] [address] 65955 WBC (Bld) [#/Vol] 7.6 4.5 - 10.8 x 10EE3/UL Normal 01-21-2020 [facility] ( 09296) Comment: Performed By: #### [id number] ## ## [facility],[address] [place] [address] 19758 bmp on 2020-01-21 Creatinine [Mass/Vol] 0.96 0.50-1.20 mg/dL Normal 01-21-20 20 [facility] ([place] (72447) Comment: Performed By: #### CBC, ADIF F, ANEU, BMP, GFR #### [address] [address] Urea nitrogen/Creatinine 18.8 10.0-22.0 ratio Normal 01-20 [facility] [Mass ratio] [facility] ([place] (14430) Comment: Performed By: #### CBC, ADIF F, ANEU, BMP, GFR #### [address] [address] Calcium [Mass/Vol] 8.7 8.4-10.1 mg/dL Normal 01-21-2020 [facility] ([place] (0000 0) Comment: Performed By: #### CBC, ADIF F, ANEU, BMP, GFR #### [address] [address] Chloride [Moles/Vol] 108 98-110 mEq/L Normal 0 [facility] ([place]) (0000 0) Comment: Performed By: #### CBC, ADIF F, ANEU, BMP, GFR #### [address] [address] CO2 [Moles/Vol] 26 22-32 mEq/L Normal 01-21-2020 [facility] ([place]) (13110) Comment: Performed By: #### CBC, ADIF F, ANEU, BMP, GFR #### [place] [address] Electrolyte Balance 4.0 4.0-15.0 mEq/L Normal 01-21-2020 [facility] ([place] (0000 0) Comment: Performed By: #### CBC, ADIF F, ANEU, BMP, GFR #### [place] [id number] Glucose [Mass/Vol] 85 70-110 mg/dL Normal 01-21-2020 [facility] ([place] (57415) Comment: Performed By: #### CBC, ADIF F, ANEU, BMP, GFR #### [place] [address] Potassium [Moles/Vol] 4.1 3.5-5.0 mEq/L Normal 01-21-20 [facility]) (0000 0) Comment: Performed By: #### CBC, ADIF F, ANEU, BMP, GFR #### [place] [address] Sodium [Moles/Vol] 138 136-145 mEq/L Normal 01-21-2020 [facility] ([place] (84163) Comment: Performed By: #### CBC, ADIF F, ANEU, BMP, GFR #### [place] [address] Urea nitrogen [Mass/Vol] 18.0 8.0-22.0 mg/dL Normal 01-20 [facility] ([place] (24482) Comment: Performed By: #### CBC, ADIF F, ANEU, BMP, GFR #### [address] [address] .neuabs on Neutrophils (Bld) 3.50 2.25-8.10 10 3/mcL Normal 01-21-2020 [facility] [#/Vol] [facility] ([place]) (56953) Comment: Performed By: #### CBC, ADIF F, ANEU, BMP, GFR #### [address] [address] .gfr on 2020-01-21 GFR Non- >60 Normal 01-20 [facility] ([place]) (45847) Comment: Result Comment: GFR Population mean for Afri can [place], Non- Americans Ages 20-29 = 116 mL/min/1.73 sq.m. Ages 30-39 = 107 mL/min/1.73 sq.m. Ages 40-49 = 99 mL/min/1.73 sq.m. Ages 50-59 = 93 mL/min/1.73 sq.m. Ages 60-69 = 85 mL/min/1.73 sq.m. Ages 70+ = 75 mL/min/1.73 sq .m. Chronic Kidney Disease: Less than 60 mL/min/1.73 square meters End Stage Renal Disease: Les s than 15 mL/min/1.73 square meters Performed By: #### CBC, ADIF F, ANEU, BMP, GFR #### [address] [address] GFR >60 Normal 0 [facility] ([place]) (13468) Comment: Result Comment: GFR Population mean for Afri can [place], Non- Americans Ages 20-29 = 116 mL/min/1.73 sq.m. Ages 30-39 = 107 mL/min/1.73 sq.m. Ages 40-49 = 99 mL/min/1.73 sq.m. Ages 50-59 = 93 mL/min/1.73 sq.m. Ages 60-69 = 85 mL/min/1.73 sq.m. Ages 70+ = 75 mL/min/1.73 sq .m. Chronic Kidney Disease: Less than 60 mL/min/1.73 square meters End Stage Renal Disease: Les s than 15 mL/min/1.73 square meters Performed By: #### CBC, ADIF F, ANEU, BMP, GFR #### [address] [address] .auto diff on 01-20 Ammonia (P) [Mass/Vol] 0.40 0.09-1.40 10 3/mcL Normal 020 [facility] ([place]) (33617) Comment: Performed By: #### CBC, ADIF F, ANEU, BMP, GFR #### [address] [address] Basophils (Bld) 0.00 0.00-0.27 10 3/mcL Normal 01-21-2020 [facility] [#/Vol] [facility] ([place]) (91473) Comment: Performed By: #### CBC, ADIF F, ANEU, BMP, GFR #### [address] [address] Basophils/100 WBC (Bld) 0.5 0.0-2.5 % Normal 2019 [facility] ([place]) (0000 0) Comment: Performed By: #### CBC, ADIF F, ANEU, BMP, GFR #### [address] [address] Eosinophils (Bld) 0.30 0.00-0.65 10 3/mcL Normal 01-21-2020 [facility] [#/Vol] [facility] ([place]) (29112) Comment: Performed By: #### CBC, ADIF F, ANEU, BMP, GFR #### [address] [address] Eosinophils/100 WBC (Bld) 5.4 0.0-6.0 % Normal [facility] ([place]) (0000 0) Comment: Performed By: #### CBC, ADIF F, ANEU, BMP, GFR #### [address] [address] Lymphocytes (Bld) 2.00 0.90-4.32 10 3/mcL Normal 01-21-2020 [facility] [#/Vol] [facility] ([place]) (60718) Comment: Performed By: #### CBC, ADIF F, ANEU, BMP, GFR #### [address] [address] Lymphocytes/100 WBC (Bld) 32.4 20.0-40.0 % Normal 05-0 [facility] ([place]) (24746) Comment: Performed By: #### CBC, ADIF F, ANEU, BMP, GFR #### [address] [address] Monocytes/100 WBC (Bld) 6.1 2.0-13.0 % Normal 2019 [facility] ([place]) (0000 0) Comment: Performed By: #### CBC, ADIF F, ANEU, BMP, GFR #### [facility] [address] [place] [id number] Neutrophils/100 WBC (Bld) 55.6 50.0-75.0 % Normal 050 [facility] ([place]) (08312) Comment: Performed By: #### CBC, ADIF F, ANEU, BMP, GFR #### [facility] [address] [place] [address] cnpn on 2020-01-20 [facility] Normal 01-20-2020 [facility] SALLY MCGREGOR ([id number]) 1980 F [place] Date Time Provider Department ([id number]) 01/20/20 MARCELINO MEJIA [facility] During your visit today, we recorded the following informati on about you: Christopher Carcamo RN 01/20/2020 11:54 AM Signed Patient asking if Chaz Stroud, would sent AB Rx to [facility], for her bad tooth? Her dentist in [place] is not open. Has an appt with a dentist in [place] on . Has a wound on tongue from a sharp area on bad tooth. Attempted to file the sharp area, but was unable. The bad tooth has pus and blood coming out. Having pain unrelieved with tylenol. Askin g provider to advise patient. ISABEL ARIAS PA-C 01/20/2020 12:38 PM Signed The following approved medic ation requests have been transmitted electronically. Signed Prescriptions Disp Refills clindamycin (CLEOCIN) 300 mg capsule 40 capsule 0 Sig: Take 1 capsule by mouth four times daily. Authorizing Provider: ISABEL ARIAS (MAYA) MAYA BOWSER LPN 01/20/2020 1:05 PM Signed Patient calling to check status of request. Aware rx to kan yvette. Asked for directions to [facility] for her ultrasound appt, gave to patient. Allergies As of Date: 01/20/2020 Noted Allergy Reaction ASA (SALICYLATES) 01/27/2011 14 - Other: See Comments Comments: ulcers CONTRAST DYE (IODINE) 05/17/2008 12 - Shortness of Breath FLAGYL (METRONIDAZOLE HCL) 03/11/2010 12 - Shortness of [place] th IBUPROFEN 06/18/2016 8 - GI Upset PENICILLINS 12/07/2009 2 - Rash PREDNISONE 06/18/2016 14 - Other: See Comments Comments: makes agitated and mean Date Reviewed: 01/02/2020 Reviewed by: Ashley Lehman Ma - Fully Assessed Reason for Visit: Tooth pain [Other] Order(s):clindamycin (CLEOCIN) 300 mg capsuleTake 1 capsule by mouth four times daily.Disp: 40 capsuleRfl: 0 Prescriptions as of 01/20/2020 Sig: CLINDAMYCIN HCL 300 MG CAPSULE Take 1 capsule by mouth four * SERTRALINE 50 MG TABLET TAKE ONE HALF (1/2) TABLET BY* QUETIAPINE ORAL QUEtiapine Seroquel XR Active* ONDANSETRON 4 MG DISINTEGRATI* Take 1 tablet by mouth every * BENZONATATE 200 MG CAPSULE Take 1 capsule by mouth three* ALBUTEROL SULFATE HFA 90 MCG/* Inhale 2 Puffs as instructed * GABAPENTIN 300 MG CAPSULE Take 1 capsule by mouth daily* CYCLOBENZAPRINE 10 MG TABLET Take 1 tablet by mouth three * Patient not taking: Reported on 11/18/2019 Problem List As Of Date 01/20/2020 Noted Resolved Routine gynecological examination [Z01.419] 05/17/2008 Class: Chronic More... More... Family history of diabetes mellitus [Z83.3] 05/17/2008 More... Calculus of kidney [N20.0] 05/17/2008 More... Allergic rhinitis, cause unspecified [J30.9] 05/17/2008 More... Migraine without aura [G43.009] 05/17/2008 More... Smoker [F17.200] 05/17/2008 More... Impaired fasting glucose [R73.01] 05/17/2008 More... Benign liver cyst [K76.89] 05/24/2010 Class: Chronic More... Ovarian cyst [N83.209] 07/15/2012 Generalized anxiety disorder [F41.1] 03/31/2016 Reactive depression [F32.9] 03/31/2016 More... Adjustment insomnia [F51.02] 03/31/2016 Encounter for screening for cardiovascular diso*03/31/2016 Bilateral low back pain without sciatica [M54.5]06/18/2016 More... Pain in left hip [M25.552] 06/18/2016 Greater trochanteric bursitis [M70.60] 06/18/2016 Hydronephrosis of left kidney [N13.30] 02/05/2017 Hydroureter on left [N13.4] 02/05/2017 Right facial numbness [R20.0] 02/23/2017 Right upper extremity numbness [R20.0] 02/23/2017 Numbness of right lower extremity [R20.0] 02/23/2017 Weakness of right upper extremity [R29.898] 02/23/2017 Weakness of right lower extremity [R29.898] 02/23/2017 Vision blurred [H53.8] 02/23/2017 Lumbar spine pain [M54.5] 02/23/2017 Cervical spine pain [M54.2] 02/23/2017 Abnormal MRI, lumbar spine [R93.7] 02/23/2017 Hydroureter, left [N13.4] 03/30/2017 Prescriptions ordered this encounter Disp Refills Start End CLINDAMYCIN HCL 300 MG CAPSULE 40 c* 0 01/20/2020 Route: ORAL Sig: Take 1 capsule by mouth four times daily. Encounter Status:Closed by MELANIE GUARDADO LPN on 01/20/20 progress on 2020-01 PROGRESS HNO ID: [id number] Normal 01-16-2020 [facility] Author: Isabel Mata ([id number]) Service: ? Author Type: Physician Taximeter Repairer Type: Progress Notes Filed: 01/16/2020 1:43 PM Note Text: DISTANCE HEALTH VISIT This Team Access Model visit is a phone encounter. It requir ed patient-provider interaction for the medical decision making as documented below. No video was used for evaluation of this patient. Patient consents to visit. Patient location: Abraham Mcgregor is a 39 year old female seen for ER follow u p. Patient states that on Thursday she started to have heart bu rn on . Then on Thursday she felt like the Chest pain wors ened and she passed out. She states that she was told she was unresponsiv e for 30minutes and taken to ER by squad. ER documentation does not mention the syncopal episode or th at patient was unresponsive. ER work up was negative. Patient reports that later that day, she developed chest daniele n again and passed out again. Went to ER and workup still negative, but again no mention of syncopal episode in review of the documentation t hat was available at time of visit. Patient states she continues to have lightheadededness, shor tness of breath/ LARSON. Chest pain on occasion. With review of PE from Hospital, patient at reproducible daniele n with palpation of sternum. She c/o of daily. Attempted to call [facility] who had 1 visit with er a few weeks ago. Had to leave a message and has not heard from them yet. Patient is a smoker Patient states both her parents have heart disease. No known hx of early cardiac disease. HISTORY REVIEWED (electronic chart updated): - medical history - medications - allergies REVIEW OF SYSTEMS: All other ROS: negative As noted in HPI PHYSICAL EXAMINATION: LMP 08/10/2006 Deferred physical exam as visit was completed over the phone . However patient sounds well without signs of shortness of breath or distress. Data reviewed ER REPORTS: 01/15/2020 Test Results: EKG showed a normal sinus rhythm with a rate o f 94. There are no acute ST or T wave changes. This was unchanged from p revious EKG earlier today. Patient had normal labs and normal chest x-ra y earlier today. A repeat troponin was obtained and was normal. ? Emergency Department Course and Treatment: Patient was given a GI cocktail here. Patient was sleeping on reevaluation. Patient was inst ructed to continue her Prevacid as previously prescribed. Patient was instructed to follow-up with her primary care physician for further evalua tion. Patient understood and was agreeable with the plan. All questions we re answered 01/15/2020 Test Results: EKG is sinus tach at [address] c hanges. Is unchanged from yesterday. Troponin is negative. Chest x-ray shows poor inspiration and no acute disease. ? Emergency Department Course and Treatment: Patient had 2 vis its yesterday with a normal troponin. Her CBC and Chem-7 were not repeated . She was treated with Tylenol p.o. ? Patient has had 3 days of constant pain with an unchanged EK G and unchanged troponin. I do not feel that this is an acute cb nary syndrome. Her pain is reproduced with palpation of her chest wall. She had a CTA of her chest 2 months ago that was unremarkable. I do not think that exposing her the radiation of another CT of the chest i s in her best interest. ASSESSMENT: (R07.89) Other chest pain (primary encounter diagnosis) (R06.02) Shortness of breath (R55) Syncope and collapse PLAN: ASSESSMENT/PLAN: 1. Other chest pain - ICD9: 786.59, ICD10: R07.89 (primary d iagnosis) Unclear etiology. Based on ER evaluation, low suspicion for cardiac nature how ever with patients continued chest pain, shortness of breath, LARSON and lightheadedness, warrants further cardiac testing. Recommend that she discuss with her civil preparedness officer. In mean time will order stress testing and carotid US. Will attempt to find more ER documentation and work up. - US CAROTID [facility] - NM CARDIAC PERF STRESS/PHARM 2. Shortness of breath - ICD9: 786.05, ICD10: R06.02 As above - [facility] - NM CARDIAC PERF STRESS/PHARM 3. Syncope and collapse - ICD9: 780.2, ICD10: R55 As above - [facility] - NM CARDIAC PERF STRESS/PHARM ISABEL ARIAS PA-C Total appointment time on phone with patient = 21-30 minutes morena on 2020-01-16 MORENA Telephone ([facility]) Normal 01-16-2020 [facility] SALLY MCGREGOR ([id number]) 1980 [facility] Time Provider Department ([id number]) 01/16/20 ISABEL ARIAS) RAMA During your visit today, we recorded the following informati on about you: Sallie Benitez DAVID 01/16/2020 10:54 AM Signed - ER Visit Summary Date of Service: 01/15/20 Chief Complaint: Chest pain History of Present Illness: The patient is a 39 F who sees Benito Mejia. She reports that she has had substernal ches t pain is been constant for the past 3 days. She describes it as a tightness. Is 10 on 10 at wors t 9-10 currently. Is worsened by nothing and relieved by n othing. It is unchanged with exertion, deep breaths, or movement. She reports that she has been a little bit short of breath. Patient denies any fever, chills, or cough. Patient reports that she started Zoloft 1 month ago and Seroquel 3 weeks ago. She denies any suicidal ideation. Physical Examination: Vitals: Stable. Afebrile. General: Well-nourished and well-developed. Head: Normocephalic atraumatic. Neck: Supple, no lymphadenopathy. No JVD. Nontender. Cardiovascular: Tachycardic regular rhythm. No murmurs. Respiratory: No respiratory distress. Clear to auscultation bilaterally. Moderate tenderness palpation over the costochondral m argin bilaterally that does reproduce her pain. Abdominal: Soft, nontender, nondistended, normal bowel catherine nds. No guarding, rebound, or peritoneal signs. Back: Nontender. Extremities: Nontender, no edema. Skin: Normal color, no rash. Neurologic: Alert and oriented ?3. Cranial nerves II t hrough XII are intact. Normal strength and sensation. Psych: Normal affect. Test Results: EKG is sinus tach at [address] c hanges. Is unchanged from yesterday. Troponin is negative. Chest x-ray shows poor inspiration and no acute disease. Emergency Department Course and Treatmen t: Patient had 2 visits yesterday with a normal troponin. Her CBC and Chem-7 were not r epeated. She was treated with Tylenol p.o. Patient has had 3 days of constant pain with an unchanged EKG and unchanged troponin. I do not feel that this is an acute coronary syndrome. Her pain is reproduced with palpation of her chest wall. She had a CTA o f her chest 2 months ago that was unremarkable. I do not think that exposi ng her the radiation of another CT of the chest is in her best interest . Treatment Plan: Patient will be discharg ed with symptomatic care. Push fluids. Use Tylenol and/or ibuprofen for pain. Follow-up with her [facility] care physician within the next 3 to 5 days for another exam. Disposition: To home in improved and stable condition. Impression: 1. Chest wall pain. 2. ED care plan. Date of Service: 01/15/20 Chief Complaint: Chest pain History of Present Illness: The patient is a 39 F who presents with chest pain that began again tonight. Patient was seen here daniel arrington for the same complaint. Patient states her pain is over her u pper chest. Patient describes it as sharp. Patient states it is worse with deep breathin g. Patient states nothing seems to help. Patient admits to some li ghtheadedness. Patient denies any nausea or vomiting. Patient denies any diaphoresis. Melyssa ent denies any cough or fever. Patient was given a prescription for Prevaci d. Physical Examination: Vital signs are stable. Chaz knight is afebrile. Patient is in no acute distress. Oral mucosa is pink and moist. N morenita is supple. Trachea is midline. There is no JVD noted. Heart was regular rate and rhythm. Lungs are clear and equal bilaterally. Abdomen is soft. Bowel soun ds are normal. There is no tenderness. There is no rebound or guarding no arnie. Skin is warm dry. Cranial nerves II through XII are intact. There are no focal motor or sensory deficits noted. Extremities are intact. There is n o calf tenderness or edema. Test Results: EKG showed a normal sinus rhythm with a rate of 94. There are no acute ST or T wave changes. This was unchanged from previous EKG earlier today. Patient had normal labs and normal chest x-ray earlier today. A repeat troponin was obtained and was normal. Emergency Department Course and Treatment: Patient was given a GI cocktail here. Patient was sleeping on reevaluation. Patient was inst ructed to continue her Prevacid as previously prescribed. Patient was instructed to follow-up with her primary care physician for further evalua tion. Patient understood and was agreeable with the plan. All questions we re answered. Disposition: Discharge home Impression: Chest pain This note was generated with [employer] dictation software. It m ay contain incorrect words, spelling, a nd punctuation that were not noted in review of the chart prior to signing ED Disposition - Plan for ED Patient: Disposition: Home or Assisted Living Diagnosis: Chest pain Instructions: ED Chest Pain Atypical Unkn Cause Referrals: Isabel Arias PA [Primary Care Provider] - 3-5 Days ISABEL ARIAS PA-C 01/16/2020 10:56 AM Signed Reviewed. Isabel Arias PA-C Allergies As of Date: 01/16/2020 Noted Allergy Reaction ASA (SALICYLATES) 01/27/2011 14 - Other: See Comments Comments: ulcers CONTRAST DYE (IODINE) 05/17/2008 12 - Shortness of Breath FLAGYL (METRONIDAZOLE HCL) 03/11/2010 12 - Shortness of [place] th IBUPROFEN 06/18/2016 8 - GI Upset PENICILLINS 12/07/2009 2 - Rash PREDNISONE 06/18/2016 14 - Other: See Comments Comments: makes agitated and mean Date Reviewed: 01/02/2020 Reviewed by: Ashley Lehman Ma - Fully Assessed Reason for Visit: ER F/U [41] Prescriptions as of 01/16/2020 Sig: SERTRALINE 50 MG TABLET TAKE ONE HALF (1/2) TABLET BY* QUETIAPINE ORAL QUEtiapine Seroquel XR Active* ONDANSETRON 4 MG DISINTEGRATI* Take 1 tablet by mouth every * BENZONATATE 200 MG CAPSULE Take 1 capsule by mouth three* ALBUTEROL SULFATE HFA 90 MCG/* Inhale 2 Puffs as instructed * GABAPENTIN 300 MG CAPSULE Take 1 capsule by mouth daily* CYCLOBENZAPRINE 10 MG TABLET Take 1 tablet by mouth three * Patient not taking: Reported on 11/18/2019 Problem List As Of Date 01/16/2020 Noted Resolved Routine gynecological examination [Z01.419] 05/17/2008 Class: Chronic More... More... Family history of diabetes mellitus [Z83.3] 05/17/2008 More... Calculus of kidney [N20.0] 05/17/2008 More... Allergic rhinitis, cause unspecified [J30.9] 05/17/2008 More... Migraine without aura [G43.009] 05/17/2008 More... Smoker [F17.200] 05/17/2008 More... Impaired fasting glucose [R73.01] 05/17/2008 More... Benign liver cyst [K76.89] 05/24/2010 Class: Chronic More... Ovarian cyst [N83.209] 07/15/2012 Generalized anxiety disorder [F41.1] 03/31/2016 Reactive depression [F32.9] 03/31/2016 More... Adjustment insomnia [F51.02] 03/31/2016 Encounter for screening for cardiovascular diso*03/31/2016 Bilateral low back pain without sciatica [M54.5]06/18/2016 More... Pain in left hip [M25.552] 06/18/2016 Greater trochanteric bursitis [M70.60] 06/18/2016 Hydronephrosis of left kidney [N13.30] 02/05/2017 Hydroureter on left [N13.4] 02/05/2017 Right facial numbness [R20.0] 02/23/2017 Right upper extremity numbness [R20.0] 02/23/2017 Numbness of right lower extremity [R20.0] 02/23/2017 Weakness of right upper extremity [R29.898] 02/23/2017 Weakness of right lower extremity [R29.898] 02/23/2017 Vision blurred [H53.8] 02/23/2017 Lumbar spine pain [M54.5] 02/23/2017 Cervical spine pain [M54.2] 02/23/2017 Abnormal MRI, lumbar spine [R93.7] 02/23/2017 Hydroureter, left [N13.4] 03/30/2017 Encounter Status:Closed by ISABEL WARE on 01/16/20 [facility] Normal 01-16-2020 [facility] SALLY MCGREGOR ([id number]) 1980 [facility] Time Provider Department ([id number]) 01/16/20 ISABEL ARIAS) RAMA During your visit today, we recorded the following informati on about you: Salile Benitez LPN 01/16/2020 1:47 PM Addendum Sallie Benitez LPN 01/16/2020 1:47 PM Addendum Allergies As of Date: 01/16/2020 Noted Allergy Reaction ASA (SALICYLATES) 01/27/2011 14 - Other: See Comments Comments: ulcers CONTRAST DYE (IODINE) 05/17/2008 12 - Shortness of Breath FLAGYL (METRONIDAZOLE HCL) 03/11/2010 12 - Shortness of [place] th IBUPROFEN 06/18/2016 8 - GI Upset PENICILLINS 12/07/2009 2 - Rash PREDNISONE 06/18/2016 14 - Other: See Comments Comments: makes agitated and mean Date Reviewed: 01/02/2020 Reviewed by: Ashley Lehman Ma - Fully Assessed Reason for Visit: er records [Other] Prescriptions as of 01/16/2020 Sig: SERTRALINE 50 MG TABLET TAKE ONE HALF (1/2) TABLET BY* QUETIAPINE ORAL QUEtiapine Seroquel XR Active* ONDANSETRON 4 MG DISINTEGRATI* Take 1 tablet by mouth every * BENZONATATE 200 MG CAPSULE Take 1 capsule by mouth three* ALBUTEROL SULFATE HFA 90 MCG/* Inhale 2 Puffs as instructed * GABAPENTIN 300 MG CAPSULE Take 1 capsule by mouth daily* CYCLOBENZAPRINE 10 MG TABLET Take 1 tablet by mouth three * Patient not taking: Reported on 11/18/2019 Problem List As Of Date 01/16/2020 Noted Resolved Routine gynecological examination [Z01.419] 05/17/2008 Class: Chronic More... More... Family history of diabetes mellitus [Z83.3] 05/17/2008 More... Calculus of kidney [N20.0] 05/17/2008 More... Allergic rhinitis, cause unspecified [J30.9] 05/17/2008 More... Migraine without aura [G43.009] 05/17/2008 More... Smoker [F17.200] 05/17/2008 More... Impaired fasting glucose [R73.01] 05/17/2008 More... Benign liver cyst [K76.89] 05/24/2010 Class: Chronic More... Ovarian cyst [N83.209] 07/15/2012 Generalized anxiety disorder [F41.1] 03/31/2016 Reactive depression [F32.9] 03/31/2016 More... Adjustment insomnia [F51.02] 03/31/2016 Encounter for screening for cardiovascular diso*03/31/2016 Bilateral low back pain without sciatica [M54.5]06/18/2016 More... Pain in left hip [M25.552] 06/18/2016 Greater trochanteric bursitis [M70.60] 06/18/2016 Hydronephrosis of left kidney [N13.30] 02/05/2017 Hydroureter on left [N13.4] 02/05/2017 Right facial numbness [R20.0] 02/23/2017 Right upper extremity numbness [R20.0] 02/23/2017 Numbness of right lower extremity [R20.0] 02/23/2017 Weakness of right upper extremity [R29.898] 02/23/2017 Weakness of right lower extremity [R29.898] 02/23/2017 Vision blurred [H53.8] 02/23/2017 Lumbar spine pain [M54.5] 02/23/2017 Cervical spine pain [M54.2] 02/23/2017 Abnormal MRI, lumbar spine [R93.7] 02/23/2017 Hydroureter, left [N13.4] 03/30/2017 Encounter Status:Closed by ISABEL WARE on 01/16/20 jakin on 2020-01-11 CNPN Telephone (FAMPWS) Normal 01-11-2020 [facility] SALLY MCGREGOR ([id number]) 1980 F [place] Date Time Provider Department ([id number]) 01/11/20 MARCELINO MEJIA During your visit today, we recorded the following informati on about you: Yvette Huffman RN 01/11/2020 1:30 PM Signed Pt called, verified by name and birthdat e. Pt states she saw dentist yesterday for dental infection. Dentist states pt will need to see a n oral surgeon to have tooth pulled. Pt states she does not have a n oral surgeon that will take her insurance. She is taking baby aspirin but they are tearing up my stomach. Pt wants to know what she can take while working with her insurance to find oral surgeon. Please advise Yvette Mejia MD 01/11/2020 1:35 PM Signed Advise patient she can take tylenol OTC. Branden Sanders Ma 01/11/2020 2:39 PM Signed Spoke to patient who advised that what she has been doing. She said she can not get in with oral surgeon due to insurance. Patient advised in so much pain. Advised we do not treat with narcotics and can contact den tis office an let them know whats going on they can decide if anti biotic is needed or pain meds but we will not be giving that. Branden Sanders Ma Allergies As of Date: 01/11/2020 Noted Allergy Reaction ASA (SALICYLATES) 01/27/2011 14 - Other: See Comments Comments: ulcers CONTRAST DYE (IODINE) 05/17/2008 12 - Shortness of Breath FLAGYL (METRONIDAZOLE HCL) 03/11/2010 12 - Shortness of [place] th IBUPROFEN 06/18/2016 8 - GI Upset PENICILLINS 12/07/2009 2 - Rash PREDNISONE 06/18/2016 14 - Other: See Comments Comments: makes agitated and mean Date Reviewed: 01/02/2020 Reviewed by: Ashley Lehman Ma - Fully Assessed Reason for Visit: Patient Question [[id number]] Reason For Visit History Recorded Prescriptions as of 01/11/2020 Sig: SERTRALINE 50 MG TABLET TAKE ONE HALF (1/2) TABLET BY* QUETIAPINE ORAL QUEtiapine Seroquel XR Active* CLINDAMYCIN HCL 300 MG CAPSULE Take 1 capsule by mouth three * ONDANSETRON 4 MG DISINTEGRATI* Take 1 tablet by mouth every * BENZONATATE 200 MG CAPSULE Take 1 capsule by mouth three* ALBUTEROL SULFATE HFA 90 MCG/* Inhale 2 Puffs as instructed * GABAPENTIN 300 MG CAPSULE Take 1 capsule by mouth daily* CYCLOBENZAPRINE 10 MG TABLET Take 1 tablet by mouth three * Patient not taking: Reported on 11/18/2019 Problem List As Of Date 01/11/2020 Noted Resolved Routine gynecological examination [Z01.419] 05/17/2008 Class: Chronic More... More... Family history of diabetes mellitus [Z83.3] 05/17/2008 More... Calculus of kidney [N20.0] 05/17/2008 More... Allergic rhinitis, cause unspecified [J30.9] 05/17/2008 More... Migraine without aura [G43.009] 05/17/2008 More... Smoker [F17.200] 05/17/2008 More... Impaired fasting glucose [R73.01] 05/17/2008 More... Benign liver cyst [K76.89] 05/24/2010 Class: Chronic More... Ovarian cyst [N83.209] 07/15/2012 Generalized anxiety disorder [F41.1] 03/31/2016 Reactive depression [F32.9] 03/31/2016 More... Adjustment insomnia [F51.02] 03/31/2016 Encounter for screening for cardiovascular diso*03/31/2016 Bilateral low back pain without sciatica [M54.5]06/18/2016 More... Pain in left hip [M25.552] 06/18/2016 Greater trochanteric bursitis [M70.60] 06/18/2016 Hydronephrosis of left kidney [N13.30] 02/05/2017 Hydroureter on left [N13.4] 02/05/2017 Right facial numbness [R20.0] 02/23/2017 Right upper extremity numbness [R20.0] 02/23/2017 Numbness of right lower extremity [R20.0] 02/23/2017 Weakness of right upper extremity [R29.898] 02/23/2017 Weakness of right lower extremity [R29.898] 02/23/2017 Vision blurred [H53.8] 02/23/2017 Lumbar spine pain [M54.5] 02/23/2017 Cervical spine pain [M54.2] 02/23/2017 Abnormal MRI, lumbar spine [R93.7] 02/23/2017 Hydroureter, left [N13.4] 03/30/2017 Encounter Status:Closed by BRANDEN SANDERS MA on 01/11/20 cnpn on 2020-01-09 CNPN Telephone (FAMPWS) Normal 01-09-2020 [facility] SALLY MCGREGOR ([id number]) 1980 [facility] Date Time Provider Department ([id number]) 01/09/20 ISABEL ARIAS) [facility] During your visit today, we recorded the following informati on about you: Lorenzo Vu 01/09/2020 10:37 AM Signed Patient says her psychiatrist Dr Shakila Gibbs (?sp) advised p atient call regarding potential interaction between Seroquel and amitriptyline prescribed for headache. Says psychiatrist does not want her taking amitriptyline. Please advise and call. Patient also states she has appt with Dr Saldana on 01/20/20. ISABEL ARIAS PA-C 01/09/2020 11:05 AM Signed I am okay with that. I will remove from med list. I ultimate ly believe her headaches are related to her neck/muscle tension and t herefor other migraine medications likely won't be as beneficial. amitritpyli ne is the best studied for this type of headache but the concerns when taken with s eroquel is worsening BELLHOP CAPTAIN depression. See if she is willing to try this combination of vitam ins until she sees Dr. Saldana. Magnesium 250MG twice a day Vit B2 200mg twice a day. Fish oil 1000mg twice a day And a liter of water daily. This combination is something dr. mejia and I recommend to a lot of our headache/migraine sufferers and has had good results from brock sinha. MAYA Bowser Ma 01/09/2020 11:49 AM Signed I spoke with patient and gave her instru ctions. Patient indicated at this time she will just try OTC relief until she see Dr. Pierre. Rhys ARIAS PA-C 01/09/2020 12:28 PM Signed Noted. Isabel Arias PA-C Allergies As of Date: 01/09/2020 Noted Allergy Reaction ASA (SALICYLATES) 01/27/2011 14 - Other: See Comments Comments: ulcers CONTRAST DYE (IODINE) 05/17/2008 12 - Shortness of Breath FLAGYL (METRONIDAZOLE HCL) 03/11/2010 12 - Shortness of [place] th IBUPROFEN 06/18/2016 8 - GI Upset PENICILLINS 12/07/2009 2 - Rash PREDNISONE 06/18/2016 14 - Other: See Comments Comments: makes agitated and mean Date Reviewed: 01/02/2020 Reviewed by: Ashley Lehman Ma - Fully Assessed Reason for Visit: Medication Problem [65] Prescriptions as of 01/09/2020 Sig: SERTRALINE 50 MG TABLET TAKE ONE HALF (1/2) TABLET BY* QUETIAPINE ORAL QUEtiapine Seroquel XR Active* CLINDAMYCIN HCL 300 MG CAPSULE Take 1 capsule by mouth three * ONDANSETRON 4 MG DISINTEGRATI* Take 1 tablet by mouth every * BENZONATATE 200 MG CAPSULE Take 1 capsule by mouth three* ALBUTEROL SULFATE HFA 90 MCG/* Inhale 2 Puffs as instructed * GABAPENTIN 300 MG CAPSULE Take 1 capsule by mouth daily* CYCLOBENZAPRINE 10 MG TABLET Take 1 tablet by mouth three * Patient not taking: Reported on 11/18/2019 Problem List As Of Date 01/09/2020 Noted Resolved Routine gynecological examination [Z01.419] 05/17/2008 Class: Chronic More... More... Family history of diabetes mellitus [Z83.3] 05/17/2008 More... Calculus of kidney [N20.0] 05/17/2008 More... Allergic rhinitis, cause unspecified [J30.9] 05/17/2008 More... Migraine without aura [G43.009] 05/17/2008 More... Smoker [F17.200] 05/17/2008 More... Impaired fasting glucose [R73.01] 05/17/2008 More... Benign liver cyst [K76.89] 05/24/2010 Class: Chronic More... Ovarian cyst [N83.209] 07/15/2012 Generalized anxiety disorder [F41.1] 03/31/2016 Reactive depression [F32.9] 03/31/2016 More... Adjustment insomnia [F51.02] 03/31/2016 Encounter for screening for cardiovascular diso*03/31/2016 Bilateral low back pain without sciatica [M54.5]06/18/2016 More... Pain in left hip [M25.552] 06/18/2016 Greater trochanteric bursitis [M70.60] 06/18/2016 Hydronephrosis of left kidney [N13.30] 02/05/2017 Hydroureter on left [N13.4] 02/05/2017 Right facial numbness [R20.0] 02/23/2017 Right upper extremity numbness [R20.0] 02/23/2017 Numbness of right lower extremity [R20.0] 02/23/2017 Weakness of right upper extremity [R29.898] 02/23/2017 Weakness of right lower extremity [R29.898] 02/23/2017 Vision blurred [H53.8] 02/23/2017 Lumbar spine pain [M54.5] 02/23/2017 Cervical spine pain [M54.2] 02/23/2017 Abnormal MRI, lumbar spine [R93.7] 02/23/2017 Hydroureter, left [N13.4] 03/30/2017 Medications Discontinued During This Encounter amitriptyline (ELAVIL) 25 mg tablet 30 t* 1 01/05/2020 020 Route: ORAL Sig: Take 1 tablet by mouth daily at bedtime. Disc: Reason for discontinue is not on file. Encounter Status:Closed by ISABEL WARE on 01/09/20 CNPN Telephone ([facility]) Normal 01-09-2020 [facility] SALLY MCGREGOR ([id number]) 1980 [facility] Date Time Provider Department ([id number]) 01/09/20 MARCELINO MEJIA During your visit today, we recorded the following informati on about you: Vitor Russell DAVID 01/09/2020 1:19 PM Signed Pt returned call to office, first she started ta lking about her dental issues and the pain she is has from this. She talks about not wanting to go back to the ER, not being able to get in to the dentist and the antibiotic that she is on that needs to be switched. She states she isn't asking fo r anything for pain, yet is talking about t he pain from the dental infection. The conversation is actually all over the blanca ce so I could not really follow what it was she was trying to get at. She asked a few more t imes about switching her antibiotic. I asked if she was having any side effects with the antibiotic and she said no. Advised that since she wasn't having any side effects and that clindamycin was commonly used for dental infections it would be unlike ly that provider would change the medication. She then mentions her headaches and I advised pt of previous phone note in which it states she was notifie d about using otc pain relief until she was seen by Dr. Saldana . I told pt I was not really following what it was she was wanting and she said just to forget it she's not really sure why she called because she's not really thinking [facility]. Marcelino Mejia MD 01/09/2020 1:31 PM Signed Advise patient to complete the antibiotic. The infecti on maybe resolving but if she has poor dentition and a nerve is exposed this will cause pain and the only treatment in OTC pain relievers. Or al gel and seeing a dentist to fix the issue. Valente Bruce Ma 01/09/2020 2:05 PM Signed Patient is very upset and tearful saying she cannot take the pain; she not requesting pain medication but just additional antibiotic to help more. I suggested that if pain is that bad she s hould go to the ER. She went last week and they gave her (20) norco and (20) flexeril. Monica t says she cannot take [place] because she is on ok Seroquel and Zoloft. She has tried OTC pain relief; oral gel and nothing is helping. She said the tooth that i s broke off is so sharp that it is cutting the inside of her mouth; she cannot hardly eat or drink. I asked patient if she was able to see a dentist and she said no dentist in [facility] can see her because of her insurance . She tried [place] because they accepted her insurance but they a re not seeing patient; told her if was that bad to go to the ER. She said I canno t even get a ride from anyone; family; boyfriend. ISABEL ARIAS PA-C 01/09/2020 2:22 PM Signed Please let patient know that clindamycin works really well f or dental infections. Therefore, If she feels that the inf ection has gotten worse, then she needs to physically be evaluated to make sure no additional involvement. A video or phone appointment would not suffice in this c ase as we cannot fully assess the mouth or gums this way. She needs to go to ER t o be evaluated if significantly worsening.. Also she needs to call dentist a nd make sure they aware of concern for dental infection. Most offices that I a m aware of are doing office calls for more emergent issues. Valente Bruce Ma 01/09/2020 2:26 PM Signed Isabel on previous phone call. I had already explaine d to patient that this was the best medication and told her several times; Also lora d patient that dentist are seeing emergency patient's she indic ated that she cannot find out anyone who will take her insurance; I al so explained twice that if she is this bad and her she getting worse to go to the ER. She krzysztof d she has already been and they will not do anything for her. I can see if patient wants to come in to be evaluated. ISABEL ARIAS PA-C 01/09/2020 2:43 PM [address]. As dr. mejia also mentioned, if the pain is fro m the broken tooth with nerve exposure, then additional antibiotic will not he lp and is putting her at risk for other complications, especially since she's been o n multiple antibiotics over the past month. If can be seen by ER or UC, then at [facility] they can see/check for signs of worsening infection. Othe rwise she needs to attempt to contact dentist again. Thanks. Christopher Carcamo RN 01/09/2020 4:53 PM Signed Patient phoned and given provider's mess age below. Patient repeated everything she said in previous messages below. When asked what are h er symptoms, does she have swelling on face, are gums swollen, patient ended c all. Valente Dileep Cates 01/09/2020 5:07 PM Signed I called patient and she was crying and upset. I gave her many options; told patient to contact oral surgeon; er to call her dentis t that does accept her insurance but she said they are closed until 01/30/2020. I told her dentist offices are reopening. She just keep repeating that she has called every dentist office in [place] and now [place] and no one takes her insurance. She said she called her insurance and they told her the only one was the one in [place]. I told her if her infection is that bad she needs to go back to ER for further evaluation. Patient then just keep saying I have no way of getting there; no family can take her; she has no money to pay to get there. Patient ended call. I did call Dr. Evans's office oral surgeon [phone] and they are open from 8-3 after day to see patient's and [facility]. They were currently closed but wanting to find out if they accept her insurance. ISABEL ARIAS PA-C 01/10/2020 7:18 AM Signed Noted. Allergies As of Date: 01/09/2020 Noted Allergy Reaction ASA (SALICYLATES) 01/27/2011 14 - Other: See Comments Comments: ulcers CONTRAST DYE (IODINE) 05/17/2008 12 - Shortness of Breath FLAGYL (METRONIDAZOLE HCL) 03/11/2010 12 - Shortness of [place] th IBUPROFEN 06/18/2016 8 - GI Upset PENICILLINS 12/07/2009 2 - Rash PREDNISONE 06/18/2016 14 - Other: See Comments Comments: makes agitated and mean Date Reviewed: 01/02/2020 Reviewed by: Ashley Lehman Ma - Fully Assessed Reason for Visit: FYI-No Action Needed [265] Prescriptions as of 01/09/2020 Sig: SERTRALINE 50 MG TABLET TAKE ONE HALF (1/2) TABLET BY* QUETIAPINE ORAL QUEtiapine Seroquel XR Active* CLINDAMYCIN HCL 300 MG CAPSULE Take 1 capsule by mouth three * ONDANSETRON 4 MG DISINTEGRATI* Take 1 tablet by mouth every * BENZONATATE 200 MG CAPSULE Take 1 capsule by mouth three* ALBUTEROL SULFATE HFA 90 MCG/* Inhale 2 Puffs as instructed * GABAPENTIN 300 MG CAPSULE Take 1 capsule by mouth daily* CYCLOBENZAPRINE 10 MG TABLET Take 1 tablet by mouth three * Patient not taking: Reported on 11/18/2019 Problem List As Of Date 01/09/2020 Noted Resolved Routine gynecological examination [Z01.419] 05/17/2008 Class: Chronic More... More... Family history of diabetes mellitus [Z83.3] 05/17/2008 More... Calculus of kidney [N20.0] 05/17/2008 More... Allergic rhinitis, cause unspecified [J30.9] 05/17/2008 More... Migraine without aura [G43.009] 05/17/2008 More... Smoker [F17.200] 05/17/2008 More... Impaired fasting glucose [R73.01] 05/17/2008 More... Benign liver cyst [K76.89] 05/24/2010 Class: Chronic More... Ovarian cyst [N83.209] 07/15/2012 Generalized anxiety disorder [F41.1] 03/31/2016 Reactive depression [F32.9] 03/31/2016 More... Adjustment insomnia [F51.02] 03/31/2016 Encounter for screening for cardiovascular diso*03/31/2016 Bilateral low back pain without sciatica [M54.5]06/18/2016 More... Pain in left hip [M25.552] 06/18/2016 Greater trochanteric bursitis [M70.60] 06/18/2016 Hydronephrosis of left kidney [N13.30] 02/05/2017 Hydroureter on left [N13.4] 02/05/2017 Right facial numbness [R20.0] 02/23/2017 Right upper extremity numbness [R20.0] 02/23/2017 Numbness of right lower extremity [R20.0] 02/23/2017 Weakness of right upper extremity [R29.898] 02/23/2017 Weakness of right lower extremity [R29.898] 02/23/2017 Vision blurred [H53.8] 02/23/2017 Lumbar spine pain [M54.5] 02/23/2017 Cervical spine pain [M54.2] 02/23/2017 Abnormal MRI, lumbar spine [R93.7] 02/23/2017 Hydroureter, left [N13.4] 03/30/2017 Encounter Status:Closed by ISABEL WARE on 01/10/20 xr thoracic 2v ap/lat on 2020-01-06 XR THORACIC 2V * * *Final Report* * * Normal [facility] AP/LAT DATE OF EXAM: Jan 06 2020 12:58PM Kimberly ([id number]) WOX [id number] - XR THORACIC 2V AP/LAT / PROCEDURE REASON: Fall, initial encounter * * * * Physician Interpretation * * * * EXAM TITLE: XR THORACIC 2V AP/LAT DATE: 01/06/2020 COMPARISON: None. CLINICAL INDICATION/HISTORY: Back pain status post fall in [facility]. TECHNIQUE: AP and lateral views of the thoracic spine are pr esented. FINDINGS: No fractures or subluxations are noted. The disc spaces are well preserved. There is no paraspinal mass or delon destructive process. IMPRESSION: Negative thoracic spine. Parts Department Manager: PSCB Transcribe Date/Time: Jan 06 2020 1:02P Dictated by : NIDA VILLALOBOS MD This examination was interpreted and the report reviewed and electronically signed by: NIDA VILLALOBOS MD on Jan 06 2020 1:07PM EST [id number] xr cervical 3v ap/lat/odon on 2020-01-06 XR CERVICAL 3V * * *Final Report* * * Normal [facility] AP/LAT/ODON DATE OF EXAM: Jan 06 2020 12:58PM Kimberly WOX [id number] - XR CERVICAL 3V AP/LAT/ODON / 3 ([id number]) PROCEDURE REASON: Fall, initial encounter * * * * Physician Interpretation * * * * EXAM TITLE: XR CERVICAL 3V AP/LAT/ODON DATE: 01/06/2020 COMPARISON: None. CLINICAL INDICATION/HISTORY: Neck pain. The patient fell in shower. TECHNIQUE: AP, lateral and odontoid views of the cervical sp ine are presented. FINDINGS: No fractures or subluxations are noted. The disc spaces are well preserved. There is no significant osteophyte formation. The prevertebral soft tissues are normal. IMPRESSION: Negative cervical spine. Parts Department Manager: PSCB Transcribe Date/Time: Jan 06 2020 1:00P Dictated by : NIDA VILLALOBOS MD This examination was interpreted and the report reviewed and electronically signed by: NIDA VILLALOBOS MD on Jan 06 2020 1:04PM EST [id number] progress on 2019-12 PROGRESS HNO ID: [id number] Normal 01-06-2020 [facility] Author: Vianey Sanchez (Tech) Kimberly ([id number]) Service: ? Author Type: Radiographic Technologist Type: Progress Notes Filed: 01/06/2020 12:58 PM Note Text: Radiology Service Progress Note PATIENT NAME: Sally Mcgregor DATE OF SERVICE: January 06, 2020 TIME: 12:43 PM PATIENT IDENTITY VERIFICATION COMPLETED USING TWO (2) IDENTI FIERS: Name and Date of confirmed by patient verbally. FALL SCREENING: Has the patient had 2 falls in the last year or 1 fall with injury or currently using an Ambulatory Assistive Devic e (Walker, Cane, Wheelchair, Crutches, etc.)? Yes, Patient High Risk fo r Falls What interventions were put in place to prevent falls during this visit? Increased Observations by Caregivers PATIENT GENDER DATA: Female. status: : No status: NO. PATIENT RELEVANT IMPLANT DATA REVIEWED: Not Applicable RADIOLOGY DEPARTMENT: General X-ray: Exam(s) Completed: Spin e X-Ray(s): Cervical AP / LAT / odontoid and Thoracic PERIPHERAL IV DATA: Not applicable SIGNED BY: Vianey Sanchez January 06, 2020 12:43 PM cnpn on 2020-01-06 [facility] Normal 01-06-2020 [facility] SALLY MCGREGOR ([id number]) 1980 [facility] Date Time Provider Department ([id number]) 01/06/20 MARCELINO MEJIA During your visit today, we recorded the following informati on about you: Deepa Salvador, EXERCISE PHYSIOLOGIST CERTIFIED, EXERCISE PHYSIOLOGIST CERTIFIED 01/06/2020 11:41 AM Signed Pt calls states fell a day ago and went to [facility] they gave h er 10 vicodin, 20 flexeril . But no x-ray or t esting was completed. Pt states fell in shower back of neck hurts and whole back down arms and shoulders . Sta los can not sleep hurts to sit , walk sit Stand. Asking if some xrays or somet rogelio could be ordered. Please advise. ISABEL ARIAS PA-C 01/06/2020 12:03 PM Signed Xray of neck and upper back ordered. MAYA Bowser Ma 01/06/2020 12:09 PM Signed Patient notified Branden Sadners Ma Allergies As of Date: 01/06/2020 Noted Allergy Reaction ASA (SALICYLATES) 01/27/2011 14 - Other: See Comments Comments: ulcers CONTRAST DYE (IODINE) 05/17/2008 12 - Shortness of Breath FLAGYL (METRONIDAZOLE HCL) 03/11/2010 12 - Shortness of [place] th IBUPROFEN 06/18/2016 8 - GI Upset PENICILLINS 12/07/2009 2 - Rash PREDNISONE 06/18/2016 14 - Other: See Comments Comments: makes agitated and mean Date Reviewed: 01/02/2020 Reviewed by: Ashley Lehman Ma - Fully Assessed Reason for Visit: Pain [78] Primary Visit Diagnosis:Fall, initial encounter [W19.XXXA] Order(s):XR THORACIC LIMITED 2V AP/LAT [[id number]] Order #: [id number] FUTURE XR CERV INJURY 3V AP/LAT/ODON [[id number]] Order #: [id number] FUTURE Prescriptions as of 01/06/2020 Sig: SERTRALINE 50 MG TABLET TAKE ONE HALF (1/2) TABLET BY* QUETIAPINE ORAL QUEtiapine Seroquel XR Active* AMITRIPTYLINE 25 MG TABLET Take 1 tablet by mouth daily * CLINDAMYCIN HCL 300 MG CAPSULE Take 1 capsule by mouth three * ONDANSETRON 4 MG DISINTEGRATI* Take 1 tablet by mouth every * BENZONATATE 200 MG CAPSULE Take 1 capsule by mouth three* ALBUTEROL SULFATE HFA 90 MCG/* Inhale 2 Puffs as instructed * GABAPENTIN 300 MG CAPSULE Take 1 capsule by mouth daily* CYCLOBENZAPRINE 10 MG TABLET Take 1 tablet by mouth three * Patient not taking: Reported on 11/18/2019 Problem List As Of Date 01/06/2020 Noted Resolved Routine gynecological examination [Z01.419] 05/17/2008 Class: Chronic More... More... Family history of diabetes mellitus [Z83.3] 05/17/2008 More... Calculus of kidney [N20.0] 05/17/2008 More... Allergic rhinitis, cause unspecified [J30.9] 05/17/2008 More... Migraine without aura [G43.009] 05/17/2008 More... Smoker [F17.200] 05/17/2008 More... Impaired fasting glucose [R73.01] 05/17/2008 More... Benign liver cyst [K76.89] 05/24/2010 Class: Chronic More... Ovarian cyst [N83.209] 07/15/2012 Generalized anxiety disorder [F41.1] 03/31/2016 Reactive depression [F32.9] 03/31/2016 More... Adjustment insomnia [F51.02] 03/31/2016 Encounter for screening for cardiovascular diso*03/31/2016 Bilateral low back pain without sciatica [M54.5]06/18/2016 More... Pain in left hip [M25.552] 06/18/2016 Greater trochanteric bursitis [M70.60] 06/18/2016 Hydronephrosis of left kidney [N13.30] 02/05/2017 Hydroureter on left [N13.4] 02/05/2017 Right facial numbness [R20.0] 02/23/2017 Right upper extremity numbness [R20.0] 02/23/2017 Numbness of right lower extremity [R20.0] 02/23/2017 Weakness of right upper extremity [R29.898] 02/23/2017 Weakness of right lower extremity [R29.898] 02/23/2017 Vision blurred [H53.8] 02/23/2017 Lumbar spine pain [M54.5] 02/23/2017 Cervical spine pain [M54.2] 02/23/2017 Abnormal MRI, lumbar spine [R93.7] 02/23/2017 Hydroureter, left [N13.4] 03/30/2017 Encounter Status:Closed by BRANDEN SANDERS MA on [facility]06/[facility] Normal 01-06-2020 [facility] SALLY MCGREGOR ([id number]) 1980 [facility] Date Time Provider Department ([id number]) 01/06/20 MARCELINO MEJIA [facility] During your visit today, we recorded the following informati on about you: Vitor Russell LPN 01/06/2020 2:13 PM Signed Pt calls requesting results of xrays completed today. She states pain is not getting any better, asking if something else can be ca lled into pharmacy for her. Please advise and notify pt. Vitor ARIAS PA-C 01/06/2020 2:17 PM Signed See result notes. No other medications. It's going to take longer than 1-2 days to start feeling better. Continue meds ER gave and can try ice and very light stretching. Roxanne Patel MA, MA 01/06/2020 2:25 PM Signed Patient informed of results, verbalized understanding. Roxanne Patel MA Allergies As of Date: 01/06/2020 Noted Allergy Reaction ASA (SALICYLATES) 01/27/2011 14 - Other: See Comments Comments: ulcers CONTRAST DYE (IODINE) 05/17/2008 12 - Shortness of Breath FLAGYL (METRONIDAZOLE HCL) 03/11/2010 12 - Shortness of [place] th IBUPROFEN 06/18/2016 8 - GI Upset PENICILLINS 12/07/2009 2 - Rash PREDNISONE 06/18/2016 14 - Other: See Comments Comments: makes agitated and mean Date Reviewed: 01/02/2020 Reviewed by: Ashley Lehman Ma - Fully Assessed Reason for Visit: Results [95] Back Pain [12] Prescriptions as of 01/06/2020 Sig: SERTRALINE 50 MG TABLET TAKE ONE HALF (1/2) TABLET BY* QUETIAPINE ORAL QUEtiapine Seroquel XR Active* AMITRIPTYLINE 25 MG TABLET Take 1 tablet by mouth daily * CLINDAMYCIN HCL 300 MG CAPSULE Take 1 capsule by mouth three * ONDANSETRON 4 MG DISINTEGRATI* Take 1 tablet by mouth every * BENZONATATE 200 MG CAPSULE Take 1 capsule by mouth three* ALBUTEROL SULFATE HFA 90 MCG/* Inhale 2 Puffs as instructed * GABAPENTIN 300 MG CAPSULE Take 1 capsule by mouth daily* CYCLOBENZAPRINE 10 MG TABLET Take 1 tablet by mouth three * Patient not taking: Reported on 11/18/2019 Problem List As Of Date 01/06/2020 Noted Resolved Routine gynecological examination [Z01.419] 05/17/2008 Class: Chronic More... More... Family history of diabetes mellitus [Z83.3] 05/17/2008 More... Calculus of kidney [N20.0] 05/17/2008 More... Allergic rhinitis, cause unspecified [J30.9] 05/17/2008 More... Migraine without aura [G43.009] 05/17/2008 More... Smoker [F17.200] 05/17/2008 More... Impaired fasting glucose [R73.01] 05/17/2008 More... Benign liver cyst [K76.89] 05/24/2010 Class: Chronic More... Ovarian cyst [N83.209] 07/15/2012 Generalized anxiety disorder [F41.1] 03/31/2016 Reactive depression [F32.9] 03/31/2016 More... Adjustment insomnia [F51.02] 03/31/2016 Encounter for screening for cardiovascular diso*03/31/2016 Bilateral low back pain without sciatica [M54.5]06/18/2016 More... Pain in left hip [M25.552] 06/18/2016 Greater trochanteric bursitis [M70.60] 06/18/2016 Hydronephrosis of left kidney [N13.30] 02/05/2017 Hydroureter on left [N13.4] 02/05/2017 Right facial numbness [R20.0] 02/23/2017 Right upper extremity numbness [R20.0] 02/23/2017 Numbness of right lower extremity [R20.0] 02/23/2017 Weakness of right upper extremity [R29.898] 02/23/2017 Weakness of right lower extremity [R29.898] 02/23/2017 Vision blurred [H53.8] 02/23/2017 Lumbar spine pain [M54.5] 02/23/2017 Cervical spine pain [M54.2] 02/23/2017 Abnormal MRI, lumbar spine [R93.7] 02/23/2017 Hydroureter, left [N13.4] 03/30/2017 Encounter Status:Closed by ROXANNE PATEL on 01/06/20 progress on 2019-12 PROGRESS HNO ID: [id number] Normal 01-05-2020 [facility] Author: Isabel Romero) Hugo Mata ([id number]) Service: ? Author Type: Physician Taximeter Repairer Type: Progress Notes Filed: 01/05/2020 8:07 AM Note Text: DISTANCE HEALTH VISIT This Team Access Model visit is a phone encounter. It requir ed patient-provider interaction for the medical decision making as documented below. No video was used for evaluation of this patient. Patient consents to visit. Patient location: Abraham Mcgregor is a 39 year old female seen for migraines. Patient reports worsening migraines over the past couple wee ks. States throbbing and burning pain. Located on top of head ba ck of head and base of skull. States feels like a band. Has been using tylenol without relief. Cannot take NSAIDs due to hx of ulcers. Patient reports that the headaches are almost daily. Was scheduled with Dr. Saldana but had to cancel due to no r kostas. [facility] has appointment rescheduled on january 19. States she fell yesterday and went to ER last night. Was giv en prescription for norco and flexeril. Which she will be start ing today. HISTORY REVIEWED (electronic chart updated): - medical history - medications - allergies REVIEW OF SYSTEMS: As noted in HPI PHYSICAL EXAMINATION: LMP 08/10/2006 Deferred physical exam as visit was completed over the phone . However patient sounds well without signs of shortness of breath or distress. ASSESSMENT: (R51) Mixed headache (primary encounter diagnosis) PLAN: ASSESSMENT/PLAN: 1. Mixed headache - ICD9: 784.0, ICD10: R51 Appears tension type h/a at this time. DIscussed options. Will restart amitriptyline and recommend she keep f/u with Dr. Pina since it seems that h/a are linked to neck p ain. Could consider Physical Therapy but transportation is an iss ue. ISABEL ARIAS PA-C There are no Patient Instructions on file for this visit. ISABEL ARIAS PA-C Total appointment time on phone with patient = 11-20 minutes progress on 2019-12 PROGRESS HNO ID: [id number] Normal 01-02-2020 [facility] Author: Marie Mary) [facility] ([id number]) Service: ? Author Type: Nurse Practitioner Type: Progress Notes Filed: 01/02/2020 5:12 PM Note Text: Subjective HPI HPI Sally Mcgregor is a 39 year old female who presents tod for CC of broken tooth, now pain. This started 4 days ago. Has tried o tc medication. Symptoms are worsened by chewing. Risk factors h x of poor dental health. .Patient presents with: Toothache: x 4 days PAST MEDICAL HISTORY Diagnosis Date - Allergic rhinitis, cause unspecified 05/17/2008 Spring and summer - Benign liver cyst 05/24/2010 CT scan at [facility] 11/2009 and 04/2010 showe 4 mm increase in size . No pain. No elevated LFTs on 03/11/2010. - Calculus of kidney 05/17/[address] Nicolas: Hospitalized age 20, and again later -- no procedures so far [facility]) - Dysmenorrhea - Impaired fasting glucose 05/17/2008 Sugar 104 fasting, 04/21 - MIGRAINE 05/17/2008 Has used imitrex with good response; Keeps Vicodin on hand w hen needed; - Ovarian cyst 07/15/2012 - Smoker 05/17/2008 Started age 26, 1/2 a PPD PAST SURGICAL HISTORY Procedure Laterality Date - DANDC, DIAG AND/OR THERAPEUTIC - LIGATE FALLOPIAN TUBE - PAST SURGICAL HISTORY OF uterine ablation - PAST SURGICAL HISTORY OF cyst removal - REMOVAL GALLBLADDER - REMOVAL OF OVARY(S) 2009 Oophorectomy right, still has left - REMOVAL OF OVARY(S) 01/2015 left removed - TOTAL ABDOM HYSTERECTOMY 08/31/06 Hysterectomy, MICHELINE ALLERGIES Asa [Salicylates]; Contrast Dye [Iodine]; Flagyl [ Metronidazole Hcl]; Ibuprofen; Penicillins; Prednisone MEDICATIONS ondansetron orally disintegrating (ZOFRAN ODT) 4 mg disinteg rating tablet Take 1 tablet by mouth every 6 hours as needed for Nausea/Vo miting. Benzonatate 200 mg capsule Take 1 capsule by mouth three edel es daily as needed. ibuprofen (MOTRIN) 200 mg tablet Take 200 mg by mouth every 6 hours as needed. albuterol HFA (VENTOLIN HFA) 90 mcg/actuation inhaler Inhale 2 Puffs as instructed every 4 hours as needed. gabapentin (NEURONTIN) 300 mg capsule Take 1 capsule by mout h daily at bedtime for 90 days. clindamycin (CLEOCIN) 300 mg capsule Take 1 capsule by mouth three times daily for 10 days. cyclobenzaprine (FLEXERIL) 10 mg tablet Take 1 tablet by nick three times daily as needed for Muscle Spasm. FAMILY HISTORY Problem Relation Age of Onset - Diabetes Maternal Grandmother - Diabetes Maternal Grandfather - Lipids Maternal Grandfather - Stroke Maternal Grandfather - Coronary Artery Disease Maternal Grandfather - Cataract Maternal Grandfather - Diabetes Paternal Grandmother - Diabetes Paternal Grandfather - Coronary Artery Disease Paternal Grandfather - Thyroid Mother unsure of details - Arthritis Mother fibromyalgia - Blood Disease Mother blood clots, unsure of details (aorta?) - Breast Cancer Maternal Aunt - Lipids Maternal Uncle - Coronary Artery Disease Maternal Uncle - other (ovarian ca) Other maternal cousin Social History Tobacco Use - Smoking status: Former Smoker Packs/day: 0.50 Years: 3.00 Pack years: 1.50 Types: Cigarettes Last attempt to quit: 01/12/2017 Years since quittin.9 - Smokeless tobacco: Never Used - Tobacco comment: Approx. 3 cigarettes daily-1 pack every w [place] Substance Use Topics - Alcohol use: Yes Comment: Occasional - Drug use: No Review of Systems Constitutional: Negative for fever. HENT: Positive for ear pain. Negative for congestion and sor e throat. Skin: Negative for itching and rash. Objective Blood pressure 138/88, pulse 110, temperature 36.9 ?C (98.4 ?F), temperature source Left Tympanic, resp. rate 16, weight 89.4 kg (197 lb), last menstrual period 08/10/2006, SpO2 96 %. Physical Exam Constitutional: She is oriented to person, place, and time a nd well-developed, well-nourished, and in no distress. Non-toxi c appearance. She does not have a sickly appearance. No distress. HENT: Head: Normocephalic and atraumatic. Right Ear: Hearing, tympanic membrane, external ear and ear canal normal. Left Ear: Hearing, tympanic membrane, external ear and ear c anal normal. Nose: Nose normal. Mouth/Throat: Uvula is midline, oropharynx is clear and mois t and mucous membranes are normal. Eyes: Pupils are equal, round, and reactive to light. Conjun ctivae and lids are normal. Right eye exhibits no discharge. Left eye e xhibits no discharge. No scleral icterus. Neck: Trachea normal and normal range of motion. Neck supple . Cardiovascular: Normal rate, regular rhythm and normal heart sounds. Pulmonary/Chest: Effort normal and breath sounds normal. Lymphadenopathy: She has no cervical adenopathy. Neurological: She is alert and oriented to person, place, an d time. Skin: No rash noted. She is not diaphoretic. ASSESSMENT/PLAN: 1. Dental infection - ICD9: 522.4, ICD10: K04.7 Take medication as ordered See dentist meme Follow up if signs of infection worsen - CLINDAMYCIN HCL 300 MG CAPSULE Agrees to plan Marie Santamaria APRN.JAKI ga on 2020-01-02 CNOV Office Visit ([facility]) Normal 01-02-20 [facility] SALLY Martinez ([id number]) 1980 F [place] Date Time Provider Department ([id number]) 01/02/20 2:45 PM MARIE SANTAMARIA (JAKI) [facility] During your visit today, we recorded the following informati on about you: Temperature Pulse Respiration Blood pressure 98.4 degrees 110/minute 16/minute 138/88 Weight 89.4 kg Marie Santamaria APRN.CNP 01/02/2020 5:12 PM Signed Subjective HPI HPI Sally Mcgregor is a 39 year old female who presents today for CC of broken tooth, now pain. This started 4 days ago. Has tried ot c medication. Symptoms are worsened by chewing. Risk factors hx of poor dental heal th. .Patient presents with: Toothache: x 4 days PAST MEDICAL HISTORY Diagnosis Date - Allergic rhinitis, cause unspecified 05/17/2008 Spring and summer - Benign liver cyst 05/24/2010 CT scan at [facility] 11/2009 and 04/2010 showe 4 mm increase in size . No pain. No elevated LFTs on 03/11/2010. - Calculus of kidney 05/17/[address] Nicolas: Hospitalized age 20, a nd again later -- no procedures so far ([facility], [facility], 1995 [facility]) - Dysmenorrhea - Impaired fasting glucose 05/17/2008 Sugar 104 fasting, 04/21 - MIGRAINE 05/17/2008 Has used imitrex with good response; Keeps Vicodin on hand w hen needed; - Ovarian cyst 07/15/2012 - Smoker 05/17/2008 Started age 26, 1/2 a PPD PAST SURGICAL HISTORY Procedure Laterality Date - DANDC, DIAG AND/OR THERAPEUTIC - LIGATE FALLOPIAN TUBE - PAST SURGICAL HISTORY OF uterine ablation - PAST SURGICAL HISTORY OF cyst removal - REMOVAL GALLBLADDER - REMOVAL OF OVARY(S) 2009 Oophorectomy right, still has left - REMOVAL OF OVARY(S) 01/2015 left removed - TOTAL ABDOM HYSTERECTOMY 08/31/06 Hysterectomy, MICHELINE ALLERGIES Asa [Salicylates]; Contrast Dye [Iodine]; Flagyl [Metronidazole Hcl]; Ibuprofen; Penicillins; Prednisone MEDICATIONS ondansetron orally disintegrating (ZOFRA N ODT) 4 mg disintegrating tablet Take 1 tablet by mouth every 6 hours as needed for Nausea/Vomitin g. Benzonatate 200 mg capsule T maninder 1 capsule by mouth three times daily as needed. ibuprofen (MOTRIN) 200 mg tablet Take 20 0 mg by mouth every 6 hours as needed. albuterol HFA (VENTOLIN HFA) 90 mcg/actuation inhaler Inhale 2 Puffs as instructed every 4 hours as needed. gabapentin (NEURONTIN) 300 mg capsule Ta ke 1 capsule by mouth daily at bedtime for 90 days. clindamycin (CLEOCIN) 300 mg capsule Davida e 1 capsule by mouth three times daily for 10 days. cyclobenzaprine (FLEXERIL) 10 mg tablet Take 1 tablet by nick th three times daily as needed for Muscle Spasm. FAMILY HISTORY Problem Relation Age of Onset - Diabetes Maternal Grandmother - Diabetes Maternal Grandfather - Lipids Maternal Grandfather - Stroke Maternal Grandfather - Coronary Artery Disease Maternal Grandfather - Cataract Maternal Grandfather - Diabetes Paternal Grandmother - Diabetes Paternal Grandfather - Coronary Artery Disease Paternal Grandfather - Thyroid Mother unsure of details - Arthritis Mother fibromyalgia - Blood Disease Mother blood clots, unsure of details (aorta?) - Breast Cancer Maternal Aunt - Lipids Maternal Uncle - Coronary Artery Disease Maternal Uncle - other (ovarian ca) Other maternal cousin Social History Tobacco Use - Smoking status: Former Smoker Packs/day: 0.50 Years: 3.00 Pack years: 1.50 Types: Cigarettes Last attempt to quit: 01/12/2017 Years since quittin.9 - Smokeless tobacco: Never Used - Tobacco comment: Approx. 3 cigarettes daily-1 pack every w [place] Substance Use Topics - Alcohol use: Yes Comment: Occasional - Drug use: No Review of Systems Constitutional: Negative for fever. HENT: Positive for ear pain. Negative for congestion and sor e throat. Skin: Negative for itching and rash. Objective Blood pressure 138/88, pulse 110, temperature 36.9 ?C (98.4 ?F), temperature source Left Tympanic, resp. rate 16, weight 89.4 kg (1 97 lb), last menstrual period 08/10/2006, SpO2 96 %. Physical Exam Constitutional: She is oriented to perso n, place, and time and well-developed, well-nourished, and in no distress. Non-toxic ap pearance. She does not have a sickly appearance. No distress. HENT: Head: Normocephalic and atraumatic. Right Ear: Hearing, tympanic membrane, external ear and ear canal normal. Left Ear: Hearing, tympanic membrane, external ear and ear c anal normal. Nose: Nose normal. Mouth/Throat: Uvula is midline, oropharynx is clear and mois t and mucous membranes are normal. Eyes: Pupils are equal, roun d, and reactive to light. Conjunctivae and lids are normal. Right eye exhibits no discharge. Left eye exhibits no discharge. No scleral icterus. Neck: Trachea normal and normal range of motion. Neck supple . Cardiovascular: Normal rate, regular rhythm and normal heart sounds. Pulmonary/Chest: Effort normal and breath sounds normal. Lymphadenopathy: She has no cervical adenopathy. Neurological: She is alert and oriented to person, place, an d time. Skin: No rash noted. She is not diaphoretic. ASSESSMENT/PLAN: 1. Dental infection - ICD9: 522.4, ICD10: K04.7 Take medication as ordered See dentist meme Follow up if signs of infection worsen - CLINDAMYCIN HCL 300 MG CAPSULE Agrees to plan Mraie Santamaria APRN.INSTRUCTIONAL RESOURCE TEACHER Referring Provider: SELF [[id number]] Allergies As of Date: 01/02/2020 Noted Allergy Reaction ASA (SALICYLATES) 01/27/2011 14 - Other: See Comments Comments: ulcers CONTRAST DYE (IODINE) 05/17/2008 12 - Shortness of Breath FLAGYL (METRONIDAZOLE HCL) 03/11/2010 12 - Shortness of [place] th IBUPROFEN 06/18/2016 8 - GI Upset PENICILLINS 12/07/2009 2 - Rash PREDNISONE 06/18/2016 14 - Other: See Comments Comments: makes agitated and mean Date Reviewed: 01/02/2020 Reviewed by: Ashley Lehman Ma - Fully Assessed Reason for Visit: Toothache [1289] Cmt: x 4 days Primary Visit Diagnosis:Dental infection [K04.7] Order(s):clindamycin (CLEOCIN) 300 mg capsuleTake 1 capsule by mouth three times daily for 10 days.Disp: 30 capsuleRfl: 0 Prescriptions as of 01/02/2020 Sig: ONDANSETRON 4 MG DISINTEGRATI* Take 1 tablet by mouth every * BENZONATATE 200 MG CAPSULE Take 1 capsule by mouth three* IBUPROFEN 200 MG TABLET Take 200 mg by mouth every 6 * ALBUTEROL SULFATE HFA 90 MCG/* Inhale 2 Puffs as instructed * GABAPENTIN 300 MG CAPSULE Take 1 capsule by mouth daily* CLINDAMYCIN HCL 300 MG CAPSULE Take 1 capsule by mouth three * CYCLOBENZAPRINE 10 MG TABLET Take 1 tablet by mouth three * Patient not taking: Reported on 11/18/2019 Problem List As Of Date 01/02/2020 Noted Resolved Routine gynecological examination [Z01.419] 05/17/2008 Class: Chronic More... More... Family history of diabetes mellitus [Z83.3] 05/17/2008 More... Calculus of kidney [N20.0] 05/17/2008 More... Allergic rhinitis, cause unspecified [J30.9] 05/17/2008 More... Migraine without aura [G43.009] 05/17/2008 More... Smoker [F17.200] 05/17/2008 More... Impaired fasting glucose [R73.01] 05/17/2008 More... Benign liver cyst [K76.89] 05/24/2010 Class: Chronic More... Ovarian cyst [N83.209] 07/15/2012 Generalized anxiety disorder [F41.1] 03/31/2016 Reactive depression [F32.9] 03/31/2016 More... Adjustment insomnia [F51.02] 03/31/2016 Encounter for screening for cardiovascular diso*03/31/2016 Bilateral low back pain without sciatica [M54.5]06/18/2016 More... Pain in left hip [M25.552] 06/18/2016 Greater trochanteric bursitis [M70.60] 06/18/2016 Hydronephrosis of left kidney [N13.30] 02/05/2017 Hydroureter on left [N13.4] 02/05/2017 Right facial numbness [R20.0] 02/23/2017 Right upper extremity numbness [R20.0] 02/23/2017 Numbness of right lower extremity [R20.0] 02/23/2017 Weakness of right upper extremity [R29.898] 02/23/2017 Weakness of right lower extremity [R29.898] 02/23/2017 Vision blurred [H53.8] 02/23/2017 Lumbar spine pain [M54.5] 02/23/2017 Cervical spine pain [M54.2] 02/23/2017 Abnormal MRI, lumbar spine [R93.7] 02/23/2017 Hydroureter, left [N13.4] 03/30/2017 Prescriptions ordered this encounter Disp Refills Start End CLINDAMYCIN HCL 300 MG CAPSULE 30 c* 0 01/02/2020 01/12/2020 Route: ORAL Sig: Take 1 capsule by mouth three times daily for 10 days. Encounter Status:Closed by MARIE SANTAMARIA CNP on 01/02/20 [facility]) Normal 12-23-2019 [facility] SALLY MCGREGOR ([id number]) 1980 [facility] Date Time Provider Department ([id number]) 12/23/19 [facility] During your visit today, we recorded the following informati on about you: Lorenzo Vu 12/23/2019 12:54 PM Signed Patient calls stating she is on day 3 of prednis one (4 tabs/day) and cough no better. +chest tightness with cough; coughing up some yellow/green mucous; +sorethroat No fever SOB is a little worse; inhaler not helpi ng. Used neighbors' nebulizer but made worse; Took Dayquil this am but not helping cough. Please advise and call [phone]. WENDI ARIAS PA-C 12/23/2019 1:02 PM Signed Recommend continued symptomatic care. Xr ay was normal so no pneumonia or signs of bronchitis. Cough can be post infectious which takes time to resolve. Finish the prednisone and use OTC cough medication. If signif icantly worsening over weekend, go to ER. MAYA Bowser Ma 12/23/2019 1:18 PM Signed Patient notified of results, verbalizes understanding of ins tructions. Branden Sanders Ma Allergies As of Date: 12/23/2019 Noted Allergy Reaction ASA (SALICYLATES) 01/27/2011 14 - Other: See Comments Comments: ulcers CONTRAST DYE (IODINE) 05/17/2008 12 - Shortness of Breath FLAGYL (METRONIDAZOLE HCL) 03/11/2010 12 - Shortness of [place] th IBUPROFEN 06/18/2016 8 - GI Upset PENICILLINS 12/07/2009 2 - Rash PREDNISONE 06/18/2016 14 - Other: See Comments Comments: makes agitated and mean Date Reviewed: 12/21/2019 Reviewed by: Isabel Romero) Hugo - Fully Assessed Reason for Visit: Cough [28] Prescriptions as of 12/23/2019 Sig: PREDNISONE 10 MG TABLET Take 4 tabs daily for 3 days,* ONDANSETRON 4 MG DISINTEGRATI* Take 1 tablet by mouth every * BENZONATATE 200 MG CAPSULE Take 1 capsule by mouth three* DOXYCYCLINE MONOHYDRATE 100 M* Take 1 capsule by mouth twice * IBUPROFEN 200 MG TABLET Take 200 mg by mouth every 6 * ALBUTEROL SULFATE HFA 90 MCG/* Inhale 2 Puffs as instructed * GABAPENTIN 300 MG CAPSULE Take 1 capsule by mouth daily* CYCLOBENZAPRINE 10 MG TABLET Take 1 tablet by mouth three * Patient not taking: Reported on 11/18/2019 Problem List As Of Date 12/23/2019 Noted Resolved Routine gynecological examination [Z01.419] 05/17/2008 Class: Chronic More... More... Family history of diabetes mellitus [Z83.3] 05/17/2008 More... Calculus of kidney [N20.0] 05/17/2008 More... Allergic rhinitis, cause unspecified [J30.9] 05/17/2008 More... Migraine without aura [G43.009] 05/17/2008 More... Smoker [F17.200] 05/17/2008 More... Impaired fasting glucose [R73.01] 05/17/2008 More... Benign liver cyst [K76.89] 05/24/2010 Class: Chronic More... Ovarian cyst [N83.209] 07/15/2012 Generalized anxiety disorder [F41.1] 03/31/2016 Reactive depression [F32.9] 03/31/2016 More... Adjustment insomnia [F51.02] 03/31/2016 Encounter for screening for cardiovascular diso*03/31/2016 Bilateral low back pain without sciatica [M54.5]06/18/2016 More... Pain in left hip [M25.552] 06/18/2016 Greater trochanteric bursitis [M70.60] 06/18/2016 Hydronephrosis of left kidney [N13.30] 02/05/2017 Hydroureter on left [N13.4] 02/05/2017 Right facial numbness [R20.0] 02/23/2017 Right upper extremity numbness [R20.0] 02/23/2017 Numbness of right lower extremity [R20.0] 02/23/2017 Weakness of right upper extremity [R29.898] 02/23/2017 Weakness of right lower extremity [R29.898] 02/23/2017 Vision blurred [H53.8] 02/23/2017 Lumbar spine pain [M54.5] 02/23/2017 Cervical spine pain [M54.2] 02/23/2017 Abnormal MRI, lumbar spine [R93.7] 02/23/2017 Hydroureter, left [N13.4] 03/30/2017 Encounter Status:Closed by BRANDEN SANDERS MA on 12/23/19 xr chest 2v frontal/lat on 2019-12-22 XR CHEST 2V * * *Final Report* * * Normal 12-21 [facility] FRONTAL/LAT DATE OF EXAM: Dec 22 2019 9:28AM [facility] WOX 5291 - XR CHEST 2V FRONTAL/LAT / ([id number]) PROCEDURE REASON: multiple diagnoses * * * * Physician Interpretation * * * * EXAMINATION: CHEST RADIOGRAPH (2 VIEW FRONTAL and LATERAL) CLINICAL HISTORY: Cough Bacterial pneumonia MQ: XC2_6 EXAM DATE/TIME: 12/22/2019 9:28 AM COMPARISON: 11/18/2019 RESULT: Lines, tubes, and devices: None. Lungs and pleura: Lung volumes are somewhat low but appear g rossly clear. No confluent infiltrate, pneumothorax, pleural effusi on. Similar mild elevation of the right hemidiaphragm. Cardiomediastinal silhouette: Normal cardiomediastinal silho uette. Bones and soft tissues: No acute bony abnormality. Right upp er quadrant surgical clips noted. IMPRESSION: No acute radiographic abnormality. Parts Department Manager: PSCB Transcribe Date/Time: Dec 22 2019 9:29A Dictated by : NIDA VILLALOBOS MD This examination was interpreted and the report reviewed and electronically signed by: NIDA VILLALOBOS MD on Dec 22 2019 9:51AM EST [id number] progress on 2019-12 PROGRESS HNO ID: [id number] Normal 12-22-2019 [facility] Author: Madeline Joyner (Rt) Vianey Luo Mata ([id number]) Service: ? Author Type: Radiographic Technologist Type: Progress Notes Filed: 12/22/2019 9:28 AM Note Text: Radiology Service Progress Note PATIENT NAME: Sally Mcgregor DATE OF SERVICE: December 22, 2019 TIME: 9:18 AM PATIENT IDENTITY VERIFICATION COMPLETED USING TWO (2) IDENTI FIERS: Name and Date of confirmed by patient verbally. PATIENT GENDER DATA: Female. status: : No status: NO. PATIENT RELEVANT IMPLANT DATA REVIEWED: Not Applicable RADIOLOGY DEPARTMENT: General X-ray: Exam(s) Completed: Ches t X-Ray PERIPHERAL IV DATA: Not applicable SIGNED BY: RT Abel December 22, 2019 9:18 AM cnpn on 2019-12-22 [facility]) Normal 12-22-2019 [facility] SALLY MCGREGOR ([id number]) 1980 [facility] Date Time Provider Department ([id number]) 12/22/19 ISABEL ARIAS) RAMA During your visit today, we recorded the following informati on about you: ISABEL ARIAS PA-C 12/22/2019 9:56 AM Signed Let patient know that xray is negative. Recommend cont inuing as we discussed yesterday. Isabel Arias PA-C Ashley Mcfarland Network Operations Specialist 12/22/2019 10:42 AM Signed Patient notified and verbalized understanding Ashley Mcfarland Network Operations Specialist Allergies As of Date: 12/22/2019 Noted Allergy Reaction ASA (SALICYLATES) 01/27/2011 14 - Other: See Comments Comments: ulcers CONTRAST DYE (IODINE) 05/17/2008 12 - Shortness of Breath FLAGYL (METRONIDAZOLE HCL) 03/11/2010 12 - Shortness of [place] th IBUPROFEN 06/18/2016 8 - GI Upset PENICILLINS 12/07/2009 2 - Rash PREDNISONE 06/18/2016 14 - Other: See Comments Comments: makes agitated and mean Date Reviewed: 12/21/2019 Reviewed by: Isabel Arias - Fully Assessed Reason for Visit: Results [95] Prescriptions as of 12/22/2019 Sig: PREDNISONE 10 MG TABLET Take 4 tabs daily for 3 days,* ONDANSETRON 4 MG DISINTEGRATI* Take 1 tablet by mouth every * BENZONATATE 200 MG CAPSULE Take 1 capsule by mouth three* DOXYCYCLINE MONOHYDRATE 100 M* Take 1 capsule by mouth twice * IBUPROFEN 200 MG TABLET Take 200 mg by mouth every 6 * ALBUTEROL SULFATE HFA 90 MCG/* Inhale 2 Puffs as instructed * GABAPENTIN 300 MG CAPSULE Take 1 capsule by mouth daily* CYCLOBENZAPRINE 10 MG TABLET Take 1 tablet by mouth three * Patient not taking: Reported on 11/18/2019 Problem List As Of Date 12/22/2019 Noted Resolved Routine gynecological examination [Z01.419] 05/17/2008 Class: Chronic More... More... Family history of diabetes mellitus [Z83.3] 05/17/2008 More... Calculus of kidney [N20.0] 05/17/2008 More... Allergic rhinitis, cause unspecified [J30.9] 05/17/2008 More... Migraine without aura [G43.009] 05/17/2008 More... Smoker [F17.200] 05/17/2008 More... Impaired fasting glucose [R73.01] 05/17/2008 More... Benign liver cyst [K76.89] 05/24/2010 Class: Chronic More... Ovarian cyst [N83.209] 07/15/2012 Generalized anxiety disorder [F41.1] 03/31/2016 Reactive depression [F32.9] 03/31/2016 More... Adjustment insomnia [F51.02] 03/31/2016 Encounter for screening for cardiovascular diso*03/31/2016 Bilateral low back pain without sciatica [M54.5]06/18/2016 More... Pain in left hip [M25.552] 06/18/2016 Greater trochanteric bursitis [M70.60] 06/18/2016 Hydronephrosis of left kidney [N13.30] 02/05/2017 Hydroureter on left [N13.4] 02/05/2017 Right facial numbness [R20.0] 02/23/2017 Right upper extremity numbness [R20.0] 02/23/2017 Numbness of right lower extremity [R20.0] 02/23/2017 Weakness of right upper extremity [R29.898] 02/23/2017 Weakness of right lower extremity [R29.898] 02/23/2017 Vision blurred [H53.8] 02/23/2017 Lumbar spine pain [M54.5] 02/23/2017 Cervical spine pain [M54.2] 02/23/2017 Abnormal MRI, lumbar spine [R93.7] 02/23/2017 Hydroureter, left [N13.4] 03/30/2017 Encounter Status:Closed by ASHLEY MCFARLAND CMA on 12/22/19 progress on 2019-12 PROGRESS HNO ID: [id number] Normal 12-21-2019 [facility] Author: Isabel Romero) Hugo Mata ([id number]) Service: ? Author Type: Physician Taximeter Repairer Type: Progress Notes Filed: 12/21/2019 12:48 PM Note Text: DISTANCE HEALTH VISIT This Team Access Model visit is a phone encounter. It requir ed patient-provider interaction for the medical decision making as documented below. No video was used for evaluation of this patient. Patient consents to visit. Patient location: [place] Sally Mcgregor is a 39 year old female seen for continued c ough. Patient was dx with pneumonia about [address] t ER. She had improved but symptoms returned and I placed her on d oxy about 1 week ago. Patient states she still having cough. No fever. Denies other symptoms. Has mild shortness of breath and using inhaler prn. HISTORY REVIEWED (electronic chart updated): - medical history - medications - allergies REVIEW OF SYSTEMS: As noted in HPI PHYSICAL EXAMINATION: [facility] 08/10/2006 Deferred physical exam as visit was completed over the phone . However patient sounds well without signs of shortness of breath or distress. ASSESSMENT: (R05) Cough (primary encounter diagnosis) (J15.9) Bacterial pneumonia PLAN: ASSESSMENT/PLAN: 1. Cough - ICD9: 786.2, ICD10: R05 (primary diagnosis) May be post infectious cough. Recommend continued symptomatic care, social distancing and good cough etiquette. Will get CXR. - PREDNISONE 10 MG TABLET - XR CHEST 2V FRONTAL/LAT 2. Bacterial pneumonia - ICD9: 482.9, ICD10: J15.9 As above. Will check CXR for resolution. - XR CHEST 2V FRONTAL/LAT ISABEL ARIAS PA-C Total appointment time on phone with patient = 5-10 minutes jakin on 2019-12-15 CNPN Telephone (FAMPWS) Normal 12-15-2019 [facility] SALLY MCGREGOR ([id number]) 1980 [facility] Date Time Provider Department ([id number]) 12/15/19 ISABEL ARIAS (MAYA) RAMA During your visit today, we recorded the following informati on about you: Melanie Guardado LPN 12/15/2019 11:15 AM Signed Patient calling every time takes the [place] zonatate she gets nauseated, asking if could have zofran or phenergan rx? Patient said the pe rles help she does not cough, she tries eating first and still makes her nauseated. Patient uses [facility] for her pharmacy. Please advise ISABEL ARIAS PA-C 12/15/2019 12:16 PM Signed zofran sent to pharm Milka Chao MA 12/15/2019 2:12 PM Signed Pt notified. Cough doing better with medication. Milka Chao MA Allergies As of Date: 12/15/2019 Noted Allergy Reaction ASA (SALICYLATES) 01/27/2011 14 - Other: See Comments Comments: ulcers CONTRAST DYE (IODINE) 05/17/2008 12 - Shortness of Breath FLAGYL (METRONIDAZOLE HCL) 03/11/2010 12 - Shortness of María th IBUPROFEN 06/18/2016 8 - GI Upset PENICILLINS 12/07/2009 2 - Rash PREDNISONE 06/18/2016 14 - Other: See Comments Comments: makes agitated and mean Date Reviewed: 11/24/2019 Reviewed by: Jay) Hugo - Fully Assessed Reason for Visit: benzonatate makes her nauseated [Other] Order(s):ondansetron orally disintegrating (ZOFRAN ODT) 4 mg disintegrating tabletTake 1 tablet by mouth every 6 hours as needed for Nausea/Vomiting.Disp: 20 tabletRfl: 0 Prescriptions as of 12/15/2019 Sig: ONDANSETRON 4 MG DISINTEGRATI* Take 1 tablet by mouth every * BENZONATATE 200 MG CAPSULE Take 1 capsule by mouth three* DOXYCYCLINE MONOHYDRATE 100 M* Take 1 capsule by mouth twice * CODEINE 10 MG-GUAIFENESIN 100* Take 5-10 mL by mouth four ti * IBUPROFEN 200 MG TABLET Take 200 mg by mouth every 6 * ALBUTEROL SULFATE HFA 90 MCG/* Inhale 2 Puffs as instructed * GABAPENTIN 300 MG CAPSULE Take 1 capsule by mouth daily* CYCLOBENZAPRINE 10 MG TABLET Take 1 tablet by mouth three * Patient not taking: Reported on 11/18/2019 Problem List As Of Date 12/15/2019 Noted Resolved Routine gynecological examination [Z01.419] 05/17/2008 Class: Chronic More... More... Family history of diabetes mellitus [Z83.3] 05/17/2008 More... Calculus of kidney [N20.0] 05/17/2008 More... Allergic rhinitis, cause unspecified [J30.9] 05/17/2008 More... Migraine without aura [G43.009] 05/17/2008 More... Smoker [F17.200] 05/17/2008 More... Impaired fasting glucose [R73.01] 05/17/2008 More... Benign liver cyst [K76.89] 05/24/2010 Class: Chronic More... Ovarian cyst [N83.209] 07/15/2012 Generalized anxiety disorder [F41.1] 03/31/2016 Reactive depression [F32.9] 03/31/2016 More... Adjustment insomnia [F51.02] 03/31/2016 Encounter for screening for cardiovascular diso*03/31/2016 Bilateral low back pain without sciatica [M54.5]06/18/2016 More... Pain in left hip [M25.552] 06/18/2016 Greater trochanteric bursitis [M70.60] 06/18/2016 Hydronephrosis of left kidney [N13.30] 02/05/2017 Hydroureter on left [N13.4] 02/05/2017 Right facial numbness [R20.0] 02/23/2017 Right upper extremity numbness [R20.0] 02/23/2017 Numbness of right lower extremity [R20.0] 02/23/2017 Weakness of right upper extremity [R29.898] 02/23/2017 Weakness of right lower extremity [R29.898] 02/23/2017 Vision blurred [H53.8] 02/23/2017 Lumbar spine pain [M54.5] 02/23/2017 Cervical spine pain [M54.2] 02/23/2017 Abnormal MRI, lumbar spine [R93.7] 02/23/2017 Hydroureter, left [N13.4] 03/30/2017 Prescriptions ordered this encounter Disp Refills Start End ONDANSETRON 4 MG DISINTEGRATING TABL* 20 t* 0 12/15/2019 Route: ORAL Sig: Take 1 tablet by mouth every 6 hours as needed for Naus ea/Vomiting. Encounter Status:Closed by MILKA CHAO MA on 12/15/19 cnpn on 2019-12-14 CNPN Telephone (INTMWS) Normal 12-14-2019 [facility] SALLY MCGREGOR ([id number]) 1980 [place] Date Time Provider Department ([id number]) 12/14/19 ISABEL ARIAS) INTMWS During your visit today, we recorded the following informati on about you: Gale Fuentes LPN 12/14/2019 10:15 AM Signed Patient took 1 dose of Robitussin AC, di d help suppress cough but developed an itchy/rash. Asking if something else can be called in to pha acy. Patient uses [facility]. Please notify Patient. Gale ARIAS PA-C 12/14/2019 10:32 AM Signed I will send in alysha altaorre es and otherwise she can take OTC cough medication. MAYA Bowser Ma 12/14/2019 11:33 AM Signed Left detailed message on confidential vm Branden Sanders Ma Allergies As of Date: 12/14/2019 Noted Allergy Reaction ASA (SALICYLATES) 01/27/2011 14 - Other: See Comments Comments: ulcers CONTRAST DYE (IODINE) 05/17/2008 12 - Shortness of Breath FLAGYL (METRONIDAZOLE HCL) 03/11/2010 12 - Shortness of María th IBUPROFEN 06/18/2016 8 - GI Upset PENICILLINS 12/07/2009 2 - Rash PREDNISONE 06/18/2016 14 - Other: See Comments Comments: makes agitated and mean Date Reviewed: 11/24/2019 Reviewed by: Randi Arias - Fully Assessed Reason for Visit: Itchy Rash [Other] Reason For Visit History Recorded Order(s):Benzonatate 200 mg capsuleTake 1 capsule by m outh three times daily as needed.Disp: 20 capsuleRfl: 0 Prescriptions as of 12/14/2019 Sig: BENZONATATE 200 MG CAPSULE Take 1 capsule by mouth three* DOXYCYCLINE MONOHYDRATE 100 M* Take 1 capsule by mouth twice * CODEINE 10 MG-GUAIFENESIN 100* Take 5-10 mL by mouth four ti * IBUPROFEN 200 MG TABLET Take 200 mg by mouth every 6 * ALBUTEROL SULFATE HFA 90 MCG/* Inhale 2 Puffs as instructed * GABAPENTIN 300 MG CAPSULE Take 1 capsule by mouth daily* CYCLOBENZAPRINE 10 MG TABLET Take 1 tablet by mouth three * Patient not taking: Reported on 11/18/2019 Problem List As Of Date 12/14/2019 Noted Resolved Routine gynecological examination [Z01.419] 05/17/2008 Class: Chronic More... More... Family history of diabetes mellitus [Z83.3] 05/17/2008 More... Calculus of kidney [N20.0] 05/17/2008 More... Allergic rhinitis, cause unspecified [J30.9] 05/17/2008 More... Migraine without aura [G43.009] 05/17/2008 More... Smoker [F17.200] 05/17/2008 More... Impaired fasting glucose [R73.01] 05/17/2008 More... Benign liver cyst [K76.89] 05/24/2010 Class: Chronic More... Ovarian cyst [N83.209] 07/15/2012 Generalized anxiety disorder [F41.1] 03/31/2016 Reactive depression [F32.9] 03/31/2016 More... Adjustment insomnia [F51.02] 03/31/2016 Encounter for screening for cardiovascular diso*03/31/2016 Bilateral low back pain without sciatica [M54.5]06/18/2016 More... Pain in left hip [M25.552] 06/18/2016 Greater trochanteric bursitis [M70.60] 06/18/2016 Hydronephrosis of left kidney [N13.30] 02/05/2017 Hydroureter on left [N13.4] 02/05/2017 Right facial numbness [R20.0] 02/23/2017 Right upper extremity numbness [R20.0] 02/23/2017 Numbness of right lower extremity [R20.0] 02/23/2017 Weakness of right upper extremity [R29.898] 02/23/2017 Weakness of right lower extremity [R29.898] 02/23/2017 Vision blurred [H53.8] 02/23/2017 Lumbar spine pain [M54.5] 02/23/2017 Cervical spine pain [M54.2] 02/23/2017 Abnormal MRI, lumbar spine [R93.7] 02/23/2017 Hydroureter, left [N13.4] 03/30/2017 Prescriptions ordered this encounter Disp Refills Start End BENZONATATE 200 MG CAPSULE 20 c* 0 12/14/2019 Route: ORAL Sig: Take 1 capsule by mouth three times daily as needed. Encounter Status:Closed by BRANDEN SANDERS MA on 12/14/19 CNPN Telephone (FAMPWS) Normal 12-14-2019 [facility] SALLY MCGREGOR ([id number]) 1980 [facility] Date Time Provider Department ([id number]) 12/14/19 ISABEL ARIAS) RAMA During your visit today, we recorded the following informati on about you: Yvette Huffman RN 12/14/2019 11:35 AM Signed Pt called, verified by name and birthdate. Pt ve rbally aggressive and yelling that she does not want Benzonatate caps ules they don't work for my cough. Pt states she made this clear in her visit she did not want thi s medicine. Attempted to explain to pt she does not have to take the m edicine, it is as needed. Pt did not want to listen. Please advise Yvette ARIAS PA-C 12/14/2019 12:22 PM Signed Please let patient know she is to get OTC cough medication. What I have prescribed are the only prescriptive cough medic ations I use. The rest can be picked OTC. I wont be prescribing anything else. Also let her know that I sent in the higher dose of the [place] onatate as sometimes this works better for patient. Branden Sanders Ma 12/14/2019 12:26 PM Signed Spoke to patient and she verbalized unde rstanding and state that medication PA sent is already helping Branden Sanders Ma Allergies As of Date: 12/14/2019 Noted Allergy Reaction ASA (SALICYLATES) 01/27/2011 14 - Other: See Comments Comments: ulcers CONTRAST DYE (IODINE) 05/17/2008 12 - Shortness of Breath FLAGYL (METRONIDAZOLE HCL) 03/11/2010 12 - Shortness of María th IBUPROFEN 06/18/2016 8 - GI Upset PENICILLINS 12/07/2009 2 - Rash PREDNISONE 06/18/2016 14 - Other: See Comments Comments: makes agitated and mean Date Reviewed: 11/24/2019 Reviewed by: Randi Arias - Fully Assessed Reason for Visit: Patient Update [1234] Prescriptions as of 12/14/2019 Sig: BENZONATATE 200 MG CAPSULE Take 1 capsule by mouth three* DOXYCYCLINE MONOHYDRATE 100 M* Take 1 capsule by mouth twice * CODEINE 10 MG-GUAIFENESIN 100* Take 5-10 mL by mouth four ti * IBUPROFEN 200 MG TABLET Take 200 mg by mouth every 6 * ALBUTEROL SULFATE HFA 90 MCG/* Inhale 2 Puffs as instructed * GABAPENTIN 300 MG CAPSULE Take 1 capsule by mouth daily* CYCLOBENZAPRINE 10 MG TABLET Take 1 tablet by mouth three * Patient not taking: Reported on 11/18/2019 Problem List As Of Date 12/14/2019 Noted Resolved Routine gynecological examination [Z01.419] 05/17/2008 Class: Chronic More... More... Family history of diabetes mellitus [Z83.3] 05/17/2008 More... Calculus of kidney [N20.0] 05/17/2008 More... Allergic rhinitis, cause unspecified [J30.9] 05/17/2008 More... Migraine without aura [G43.009] 05/17/2008 More... Smoker [F17.200] 05/17/2008 More... Impaired fasting glucose [R73.01] 05/17/2008 More... Benign liver cyst [K76.89] 05/24/2010 Class: Chronic More... Ovarian cyst [N83.209] 07/15/2012 Generalized anxiety disorder [F41.1] 03/31/2016 Reactive depression [F32.9] 03/31/2016 More... Adjustment insomnia [F51.02] 03/31/2016 Encounter for screening for cardiovascular diso*03/31/2016 Bilateral low back pain without sciatica [M54.5]06/18/2016 More... Pain in left hip [M25.552] 06/18/2016 Greater trochanteric bursitis [M70.60] 06/18/2016 Hydronephrosis of left kidney [N13.30] 02/05/2017 Hydroureter on left [N13.4] 02/05/2017 Right facial numbness [R20.0] 02/23/2017 Right upper extremity numbness [R20.0] 02/23/2017 Numbness of right lower extremity [R20.0] 02/23/2017 Weakness of right upper extremity [R29.898] 02/23/2017 Weakness of right lower extremity [R29.898] 02/23/2017 Vision blurred [H53.8] 02/23/2017 Lumbar spine pain [M54.5] 02/23/2017 Cervical spine pain [M54.2] 02/23/2017 Abnormal MRI, lumbar spine [R93.7] 02/23/2017 Hydroureter, left [N13.4] 03/30/2017 Encounter Status:Closed by BRANDEN SANDERS MA on 12/14/19 progress on 2019-11 PROGRESS HNO ID: [id number] Normal 12-13-2019 [facility] Author: Isabel Romero) Hugo Mata ([id number]) Service: ? Author Type: Physician Taximeter Repairer Type: Progress Notes Filed: 12/13/2019 10:36 AM Note Text: This Team Access Model visit is a phone encounter. It requir ed patient-provider interaction for the medical decision making as documented below. 12/13/2019 No chief complaint on file. SUBJECTIVE: This is a 39 year old that is here today via tel ephone for cough. Patient agrees to TE. Patient was seen in beginning of november and ended up in ER wh ere a CT showed early pneumonia. She finished course of antibiotic and was feeling better. Yesterday she developed cough again and has not been able to get an relief. She states mild shortness of breath and using her inhaler. She denies any fevers. She does also report allergy like symptoms during this time of year however she denies current sinus symptoms. PAST MEDICAL HISTORY Diagnosis Date - Allergic rhinitis, cause unspecified 05/17/2008 Spring and summer - Benign liver cyst 05/24/2010 CT scan at [facility] 11/2009 and 04/2010 showe 4 mm increase in size . No pain. No elevated LFTs on 03/11/2010. - Calculus of kidney 05/17/[address] Nicolas: Hospitalized age 20, and again later -- no procedures so far ([facility], most, 1995 [facility]) - Dysmenorrhea - Impaired fasting glucose 05/17/2008 Sugar 104 fasting, 04/21 - MIGRAINE 05/17/2008 Has used imitrex with good response; Keeps Vicodin on hand w hen needed; - Ovarian cyst 07/15/2012 - Smoker 05/17/2008 Started age 26, 1/2 a PPD ALLERGIES Asa [Salicylates]; Contrast Dye [Iodine]; Flagyl [ Metronidazole Hcl]; Ibuprofen; Penicillins; Prednisone MEDICATIONS Current Outpatient Medications Medication Sig - ibuprofen (MOTRIN) 200 mg tablet Take 200 mg by mouth ever y 6 hours as needed. - albuterol HFA (VENTOLIN HFA) 90 mcg/actuation inhaler Inha le 2 Puffs as instructed every 4 hours as needed. - gabapentin (NEURONTIN) 300 mg capsule Take 1 capsule by mo uth daily at bedtime for 90 days. - amitriptyline (ELAVIL) 50 mg tablet Take 1 tablet by mouth daily at bedtime. - cyclobenzaprine (FLEXERIL) 10 mg tablet Take 1 tablet by m outh three times daily as needed for Muscle Spasm. (Patient not taking: Reported on 11/18/2019 ) No current facility-administered medications for this visit. SOCIAL HISTORY Social History Tobacco Use - Smoking status: Former Smoker Packs/day: 0.50 Years: 3.00 Pack years: 1.50 Types: Cigarettes Last attempt to quit: 01/12/2017 Years since quittin.9 - Smokeless tobacco: Never Used - Tobacco comment: Approx. 3 cigarettes daily-1 pack every w [place] Substance Use Topics - Alcohol use: Yes Comment: Occasional - Drug use: No REVIEW OF SYSTEMS All other reviewed and negative other than HPI. OBJECTIVE: LMP 08/10/2006 LUNG Patient is speaking in complete sentences without obvio us respiratory distress or audible wheezing. +coughing ASSESSMENT/PLAN: 1. Cough - ICD9: 786.2, ICD10: R05 (primary diagnosis) Will treat for possible pneumonia given recent hx of pneumon ia. Cannot rule out COVID-19 however patient symptoms do not war rant testing. Recommend home isolation and to monitor symptoms and let us know if worsening. - CODEINE 10 MG-GUAIFENESIN 100 MG/5 ML ORAL LIQUID 2. Bronchitis - ICD9: 490, ICD10: J40 As above. - CODEINE 10 MG-GUAIFENESIN 100 MG/5 ML ORAL LIQUID ISABEL ARIAS PA-C Time with patient was 11 min This patient encounter involved the screening or treatment o f novel coronavirus infection (COVID-19). emergency report on 2019-11-26 EMERGENCY REPORT [facility] Normal 11-25 [facility] EMERGENCY ROOM REPORT ([id number]) NAME ACCOUNT SEX AGE ADMIT DISCHARGE PT MED. RECORD# NUMBER DATE DATE TYPE SAM, [id number] F 39 11/24/19 11/25/19 3 SALLY [id number] ROOM: ER DATE OF : 1980 DICTATING PHYSICIAN: Ana Alcantar HISTORY OF PRESENT ILLNESS: This patient is a 39-year- old female with a past medical history significant for kidney stones and anxiety who presents to the emergency department for evaluation fo r abdominal pain to the left lower quadrant. Patient states she has had pain all day tod ay which worsened in the evening, now accompanied by nausea hence coming to the d epartment. The patient, however, denies fever, chills, chest pain, palpitations, di aphoresis, shortness of breath, vomiting, diarrhea or urinary symptoms. Patient also denies any vaginal discharge or vagin al bleeding. PAST MEDICAL HISTORY: Significant for hy sterectomy, multiple kidney surgeries, cholecystectomy, and oophorectomies. ALLERGIES: Patient is allerg ic to penicillin, aspirin, ibuprofen, fragile, Phenergan, contrast media, iodine products, and Toradol. REVIEW OF SYSTEMS: Ten systems reviewed and negative except for above mentioned. PHYSICAL EXAMINATION: Physical exam reveals a 39-year- old female in no acute distress but holding onto he r left lower quadrant. Vital signs with mild tachycardia with heart rate in the 110s which improved with IV fluids. Patient with no scleral icterus, no conjunctival injection, with moist mucous membranes, with no oropharyngeal edema or erythema. Patient with no ce rvical lymphadenopathy. Lungs clear to auscultation bilaterally with no wheezes or crackles appreciated. Heart rate and rhythm regular with no murmurs. Abdomen soft, no ntender and nondistended with positive bowel sounds. EMERGENCY DEPARTMENT COURSE AND TREATMENT: This is a 39-year -old female with history of multi ple abdominal surgeries presenting with abdominal pain. Recently evaluated in the em ergency department on the 31 of October for similar symptoms. Patient's presenta tion is concerning for diverticulitis versus constipation versus kidney stones versus pyelonephritis. Patient's workup was significant for mild leukocytosis with a white co unt of 11.4 without a left shift. No electrolyte abnormalities. No renal function impairment . No transaminitis. Negative lipase. Patient's urinalysis was contaminated with mild blood and leukocyte esterases. We obtained a CT abdomen and pelvis which showed surgical changes with no diverticulitis and no obstructing renal stones noted. I discussed all lab and imag ing results with the patient. I also educated the patient Page 1 of 2 SALLY MCGREGOR Emergency Room Report SALLY MCGREGOR : 1980 that there was an incidental finding of severe constipation. I offered the patient MiraLAX, milk of magnesia an d magnesium citrate in the emergency department which she declined and stated that she had them at home and would rather take them at home. I encouraged the patie nt to follow up with her primary care physician for constipation for review of her constipation regimen at [facility]. She verbalized understanding of the informa tion given and agreed to plan. She was discharged in stable condition. Dictated By: nAa Alcantar MD 11/25/19 05:37 JOB #: [id number] Transcribed By: dotty 11/25/19 22:11 Electronically signed by: Jennifer Perez MD 11/25/19 22:39 Page 2 of 2 SALLY MCGREGOR Emergency Room Report urinalysis with microscopy on 2019-11-25 Amorphous NONE Normal 11-25-2019 [facility] ([id number]) Comment: Performed By: #### [id number] ## ## [facility],[address] [place] [address] 94812 Bacteria LM.HPF (Urine sed) 4+ Normal [facility] [#/Area] [facility] ( 74757) Comment: Performed By: #### [id number] ## ## [facility],[address] [place] [address] 92107 Bilirubin [Mass/Vol] NEG NORMAL: NEGATIVE mg/dL Normal [facility] (74193) Comment: Performed By: #### [id number] ## ## [facility],[address] [place] [address] 45022 Blood 10 NORMAL: NEGATIVE Abnormal 11-25-2019 [facility] ([id number]) Comment: Performed By: #### [id number] ## ## [facility],[address] [place], [place] [id number] Casts LM.LPF (Urine sed) NONE Normal 11-24 [facility] [#/Area] [facility] ( 30249) Comment: Performed By: #### [id number] ## ## [facility],[address] [place] [address] 20577 Clarity (U) sl.cloudy NORMAL: CLEAR Normal 11-25-2019 [facility] ( 82566) Comment: Performed By: #### [id number] ## ## [facility],[address] [place] [address] 05117 Color (U) p.yel NORMAL: YELLOW Normal 11-25-2019 [facility] (70724) Comment: Performed By: #### [id number] ## ## [facility],[address] [place] [address] 84824 Crystals LM Nom (Urine sed) NONE Normal [facility] ( 46413) Comment: Performed By: #### [id number] ## ## [facility],[address] [place] [address]282 Epi Cells MANY Normal 11-25-2019 [facility] (58402) Comment: Performed By: #### [id number] ## ## [facility],[address] [facility] [address] Glucose [Mass/Vol] NORM NORMAL: NORMAL Normal 2019 [facility] ( 60348) Comment: Performed By: #### [id number] ## ## [facility],[address] [place] [address] 66234 Ketone NEG NORMAL: NEGATIVE Normal 11-25-2019 [facility] (28886) Comment: Performed By: #### [id number] ## ## [facility],[address] [place] [address] 67662 Mucous NONE Normal 11-25-2019 [facility] (66624) Comment: Performed By: #### [id number] ## ## [facility],[address] [place] [address] 16749 Nitrite Ql (U) NEG NORMAL: NEGATIVE Normal 11-25-19 20 [facility] ( 64831) Comment: Performed By: #### [id number] ## ## [facility],[address] [place] [address] 37160 pH (Bld) 5 NORMAL: 5.0-8.0 Normal 11-25-2019 [facility] (89476) Comment: Performed By: #### [id number] ## ## [facility],[address] [place] [address] 02793 Protein (U) NEG NORMAL: NEGATIVE mg/dL Normal 11-25-2019 [facility] [Mass/Vol] [facility] (84514) Comment: Performed By: #### [id number] ## ## [facility],[address] [place] [address] Rbc 0-5 0-3 / hpf Normal 11-25-2019 [facility] (08668) Comment: Performed By: #### [id number] ## ## [facility],[address] [place], [place] [id number] Sp [place] 1.010 NORMAL: 1.010-1.030 Normal 0 [facility] ( 26483) Comment: Performed By: #### [id number] ## ## [facility],[address] [place] [address] Specimen type Nom (Spec) UNSPECIFIED Normal [facility] ( 56815) Comment: Performed By: #### [id number] ## ## [facility],[address] [place], [place] [id number] URINALYSIS WITH MICROSCOPY Normal [facility] (85387) Comment: Result Comment: URINALYSIS Performed By: #### [id number] ## ## [facility],[address] [place] [address] Urobilinog NORM NORMAL: NORMAL Normal 11-25-2019 [facility] (18256) Comment: Performed By: #### [id number] ## ## [facility],[address] [place], [place] [id number] Wbc 1-5 0-5 / hpf Normal 11-25-2019 [facility] (30928) Comment: Performed By: #### [id number] ## ## [facility],[address] [place], [place] [id number] WBC (Bld) [#/Vol] 25 NORMAL: NEGATIVE Abnormal 11-24 [facility] ( 45072) Comment: Result Comment: URINE MICROS COPIC Performed By: #### [id number] ## ## [facility],[address] [place] [address] 64981 Yeast LM Ql (Urine sed) NONE Normal 2019 [facility] (62524) Comment: Performed By: #### [id number] ## ## [facility],[address] [place] [address] 21671 lipase on 2019-11-13 3 Lipase [Catalytic 34.0 18.0 - 51.0 U/L Normal 11-25-2019 [facility] activity/Vol] [facility] (86332) Comment: Performed By: #### [id number] ## ## [facility],[address] [facility] [address] lactate on Lactate [Moles/Vol] 0.9 0.5 - 2.0 mmol/L Normal 11-25-2019 [facility] ( 41282) Comment: Performed By: #### [id number] ## ## [facility],[address] [place] [address] abdomen/pelvis wo on 2019-11-25 CT ABDOMEN/PELVIS [facility] Normal 0 11-25-2019 [facility] [address] [place], [place] [id number] ([id number]) Patient: SALLY MCGREGOR Phone#: : [phone] Age: 39 Gender: F Pt. Type: ER Account: [id number] Location: [facility] Ordering: DR. ANA ALCANTAR Exam Date: 11/25/2019/0:04 Family Phys: ISABEL ARIAS Charge Code: [id number] Physician: [place] Order #: [id number] DLP Dose#: PROCEDURE: CT ABDOMEN/PELVIS WITHOUT CONTRAST COMPARISON: [facility], CT, ABDOMEN/PELVIS W/O CON, 03/22/2019, 16:41. INDICATIONS: Abdominal Pain TECHNIQUE: CT images were created without intravenous contra st. All CT scans at this [facility] y use dose modulation, iterative reconstruction, and/or weight based dosing when appropriate to reduce radiation dos e to as low as reasonably achievable. IV CONTRAST: No IV contrast used,0ml TOTAL DOSE: 10.70 CTDIvol(mGy) FINDINGS: The solid organs and soft ti ssues is limited in the absence of intravenous contrast. LIVER: There are stable flui d attenuation lesions in both lobes, the largest is in the posterior right lobe measuring 6.0 x 9.6 cm. BILIARY: Surgical clips are in the gallbladder fossa. PANCREAS: Normal. No lesion, fluid collection, d uctal dilatation, or atrophy. SPLEEN: Normal. No enlargement or focal lesion. KIDNEYS: There are small james ateral nonobstructing stones. In the right lower pole with a stone measures 0.3 cm. On the left a stone measures 0.2 cm. No obstructing stone. No hydronephrosis. ADRENALS: Normal. No mass or enlargement. AORTA/VASCULAR: No aortic aneurysm. RETROPERITONEUM: Evaluation for adenopathy is limited in the absence of intravenous contrast. BOWEL/MESENTERY: No bowel ob struction or dilatation. There is moderate to large degree of stool throughout the colon, consistent with co nstipation. High dense material in the colon is present, correlate with medicat ion ingestion history or oral contrast ingestion. The appendix is not visualized. Continued Report - Page 2 of 2 Patient: SALLY MCGREGOR Phone#: : 1980 Age: 39 Gender: F Pt. Type: ER Account: [id number] Location: 052 Ordering: DR. ANA ALCANTAR Exam Date: 11/25/2019/0:04 Family Phys: ISABEL ARIAS Charge Code: [id number] Physician: [place] Order #: [id number] DLP Dose#: ABDOMINAL WALL: There is a f at containing umbilical hernia. There is evidence of prior infraumbilical midline abdominal incision. URINARY BLADDER: The urinary bladder is partially distended. Questionable thickening of the bladder wall, may be due to underdistention, cannot exclude cystitis. PELVIC NODES: Normal. No adenopathy. PELVIC ORGANS: The uterus is absent. No adnexal mass. BONES: There are degenerative changes of the LUNG BASES: Normal. No visible pulmonary or pleural disease. OTHER: Negative. CONCLUSION: 1. No obstructing nephrolithiasis or hydronephrosis. 2. Small bilateral nonobstructing nephrolithiasis. 3. Constipation. 4. Questionable thickening o f the bladder wall, may be due to under distention, cannot exclude cystitis. Correlate with UA Dictated by: Kelsey Mae MD on 11/25/2019 at 10:46 Approved by: Kelsey Mae MD on 11/25/2019 at 10:46 cnpn on 2019-11-25 CNPN Telephone (FAMPWS) Normal 11-25-2019 [facility] TOSHIASALLY TORRES ([id number]) 1980 F Kimberly Date Time Provider Department ([id number]) 11/25/19 [facility]AY [facility]AS[facility] During your visit today, we recorded the following informati on about you: ISABEL ARIAS PA-C 11/25/2019 7:50 AM Signed Let patient know that her WB C is back to normal. Continue as discussed for now. MAYA Bowser Ma 11/25/2019 9:58 AM Signed Attempted to reach patient but VM has not been set up. Try again at a later time. Judit Bruce Ma 11/29/2019 9:26 AM Signed Patient notified and voiced understanding. Patient did indicate that she was feeling a little better. Valente Bruce Ma Allergies As of Date: 11/25/2019 Noted Allergy Reaction ASA (SALICYLATES) 01/27/2011 14 - Other: See Comments Comments: ulcers CONTRAST DYE (IODINE) 05/17/2008 12 - Shortness of Breath FLAGYL (METRONIDAZOLE HCL) 03/11/2010 12 - Shortness of María th IBUPROFEN 06/18/2016 8 - GI Upset PENICILLINS 12/07/2009 2 - Rash PREDNISONE 06/18/2016 14 - Other: See Comments Comments: makes agitated and mean Date Reviewed: 11/24/2019 Reviewed by: Randi Arias - Fully Assessed Reason for Visit: Results [95] Prescriptions as of 11/25/2019 Sig: IBUPROFEN 200 MG TABLET Take 200 mg by mouth every 6 * ALBUTEROL SULFATE HFA 90 MCG/* Inhale 2 Puffs as instructed * LEVOFLOXACIN 500 MG TABLET Take 1 tablet by mouth once d* GABAPENTIN 300 MG CAPSULE Take 1 capsule by mouth daily* AMITRIPTYLINE 50 MG TABLET Take 1 tablet by mouth daily * CYCLOBENZAPRINE 10 MG TABLET Take 1 tablet by mouth three * Patient not taking: Reported on 11/18/2019 Problem List As Of Date 11/25/2019 Noted Resolved Routine gynecological examination [Z01.419] 05/17/2008 Class: Chronic More... More... Family history of diabetes mellitus [Z83.3] 05/17/2008 More... Calculus of kidney [N20.0] 05/17/2008 More... Allergic rhinitis, cause unspecified [J30.9] 05/17/2008 More... Migraine without aura [G43.009] 05/17/2008 More... Smoker [F17.200] 05/17/2008 More... Impaired fasting glucose [R73.01] 05/17/2008 More... Benign liver cyst [K76.89] 05/24/2010 Class: Chronic More... Ovarian cyst [N83.209] 07/15/2012 Generalized anxiety disorder [F41.1] 03/31/2016 Reactive depression [F32.9] 03/31/2016 More... Adjustment insomnia [F51.02] 03/31/2016 Encounter for screening for cardiovascular diso*03/31/2016 Bilateral low back pain without sciatica [M54.5]06/18/2016 More... Pain in left hip [M25.552] 06/18/2016 Greater trochanteric bursitis [M70.60] 06/18/2016 Hydronephrosis of left kidney [N13.30] 02/05/2017 Hydroureter on left [N13.4] 02/05/2017 Right facial numbness [R20.0] 02/23/2017 Right upper extremity numbness [R20.0] 02/23/2017 Numbness of right lower extremity [R20.0] 02/23/2017 Weakness of right upper extremity [R29.898] 02/23/2017 Weakness of right lower extremity [R29.898] 02/23/2017 Vision blurred [H53.8] 02/23/2017 Lumbar spine pain [M54.5] 02/23/2017 Cervical spine pain [M54.2] 02/23/2017 Abnormal MRI, lumbar spine [R93.7] 02/23/2017 Hydroureter, left [N13.4] 03/30/2017 Encounter Status:Closed by VALENTE BRUCE MA on 11/29/19 cmp with egfr on 01-12-12 Age - Reported 39 years Normal 11-25-2019 [facility] (05357) Comment: Performed By: #### [id number] ## ## [facility],[address] [place] [address] 94343 Albumin [Mass/Vol] 4.5 3.4 - 4.8 g/dL Normal 11-25-2019 [facility] ( 71267) Comment: Performed By: #### [id number] ## ## [facility],[address] [place] [address] 90707 Albumin/Globulin [Mass 1.3 0.9 - 1.6 {ratio} Normal [address] [place] [address] (78521) Comment: Performed By: #### [id number] ## ## [facility],[address] [place] [address] 27898 ALK PHOS 93 38 - 126 U/L Normal 11-25-2019 [facility] (23451) Comment: Performed By: #### [id number] ## ## [facility],[address] [place] [address] 56493 ALT/SGPT 10 8 - 35 U/L Normal 11-25-2019 [facility] (45675) Comment: Performed By: #### [id number] ## ## [facility],[address] [place] [address] 78547 Anion gap [Moles/Vol] 13 10 - 20 mmol/L Normal 11-25-19 [facility] ( 76561) Comment: Performed By: #### [id number] ## ## [facility],[address] [place] [address] 26883 AST/SGOT 9 13 - 39 U/L Low 11-25-2019 [facility] (21126) Comment: Performed By: #### [id number] ## ## [facility],1 [facility] [address] B/C RATIO 17 0 - 30 ratio Normal 11-25-2019 [facility] (39623) Comment: Performed By: #### [id number] ## ## [facility],[address] [facility] 38559 Bilirubin [Mass/Vol] 0.4 0.0 - 1.5 mg/dl Normal 0 [facility] ( 28122) Comment: Performed By: #### [id number] ## ## [facility],[address] [place] [address] 05767 Calcium [Mass/Vol] 9.9 8.6 - 10.2 mg/dl Normal 11-25-2019 [facility] ( 39440) Comment: Performed By: #### [id number] ## ## [facility],[address] [facility] [address] Chloride [Moles/Vol] 103 98 - 107 mmol/L Normal 0 [facility] ( 47127) Comment: Performed By: #### [id number] ## ## [facility],1 [place] [address] CO2 [Moles/Vol] 24.9 21.0 - 31.0 mmol/L Normal 11-25-2019 [facility] ( 72375) Comment: Performed By: #### [id number] ## ## [facility],[address] [place] [address] 82185 Creatinine [Mass/Vol] 1.0 0.6 - 1.2 mg/dl Normal 11-25-19 20 [facility] ( 16706) Comment: Performed By: #### [id number] ## ## [facility],[address] [place] [address] 22440 GFR/1.73 sq M >60 60 - 999 mL/min/{1.73_m2} Normal 0 [facility] predicted among [facility] non-blacks MDRD (000 00) (S/P/Bld) [Vol rate/Area] Comment: Performed By: #### [id number] ## ## [facility],[address] [place] [address] 12994 Result Comment: ACCORDING TO THE NATIONAL KIDNEY DISEASE EDUCATION PROGRAM(NKDE), A NORMAL eGFR IS A VALUE GREATER THAN OR E QUAL TO 60 ML/MIN/1.73 SQ METERS. CHRONIC KIDNEY DISEASE: <60m L/MIN/1.73 SQ METERS KIDNEY FAILURE: <15mL/MIN/1. 73 SQ METERS THIS TEST SHOULD ONLY BE USE D FOR PATIENTS 18 YEARS OF AGE AND OLDER. GFR/1.73 sq M predicted among Normal 11-25-2019 [facility] non-blacks MDRD (S/P/Bld) [Vol Hospital (65934) rate/Area] Comment: Result Comment: COMPREHENSIV E METABOLIC PANEL Performed By: #### [id number] ## ## [facility],[address] [place] [address] 86681 Globulin (S) [Mass/Vol] 3.5 1.5 - 3.8 G/DL Normal 2019 [facility] ( 14183) Comment: Performed By: #### [id number] ## ## [facility],[address] [place] [address] 56427 Glucose [Mass/Vol] 123 74 - 106 mg/dl High 11-25-2019 [facility] (49623) Comment: Performed By: #### [id number] ## ## [facility],[address] [place] [address] 14904 Potassium [Moles/Vol] 3.6 3.5 - 5.1 mmol/L Normal 11-25-19 20 [facility] ( 13821) Comment: Performed By: #### [id number] ## ## [facility],[address] [place] [address] 11423 Protein [Mass/Vol] 8.0 6.4 - 8.3 g/dl Normal 11-25-2019 [facility] ( 21314) Comment: Performed By: #### [id number] ## ## [facility],[address] [place] [address] 83292 Sodium [Moles/Vol] 137 136 - 145 mmol/l Normal 11-25-2019 [facility] ( 66111) Comment: Performed By: #### [id number] ## ## [facility],[address] [place] [address] 31049 Urea nitrogen [Mass/Vol] 17 6 - 20 mg/dl Normal 11-24 [facility] ( 33571) Comment: Performed By: #### [id number] ## ## [facility],[address] [place] [address] 60870 chest 2 views on 01-12-12 CHEST 2 VIEWS [facility] Normal 11-25-19 [facility] [address] [place], [place] [id number] ([address]76) Patient: SLALY MCGREGOR Phone#: : 1980 Age: 39 Gender: F Pt. Type: ER Account: [id number] Location: [facility] Ordering: DR. ANA ALCANTAR Exam Date: 11/25/2019/0:08 Family Phys: ISABEL ARIAS Charge Code: [id number] Physician: [place] Order #: [id number] DLP Dose#: PROCEDURE: X-RAY CHEST 2 VIEWS COMPARISON: [facility], XR, CHEST PA/LAT, 05/12/2017, 16:14. INDICATIONS: Cough FINDINGS: LUNGS: Normal. No significant pulmonary parenchymal abnormal ities. VASCULATURE: Normal. Unremarkable pulmonary vasculature. CARDIAC: Normal. No cardiac silhouette abnormality or cardio megaly. MEDIASTINUM: Normal. No visible mass or adenopathy. PLEURA: Normal. No effusion or pleural thickening. BONES: Normal. No fracture or visible bony lesion. OTHER: Surgical clips are seen in the right upper quadrant. CONCLUSION: No acute disease. No significant change has occu rred. Dictated by: Kelsey Mae MD on 11/25/2019 at 9:02 Approved by: Kelsey Mae MD on 11/25/2019 at 9:02 cbc + diff on 11-24 CELL COUNT 100 Normal 11-25-2019 [facility] (53538) Comment: Performed By: #### [id number] ## ## [facility],[address] [place] [address] 45077 EO 1.0 0.0 - 4.0 % Normal 11-25-2019 [facility] (86948) Comment: Performed By: #### [id number] ## ## [facility],[address] [place] [address] 62304 SEGS 59 50 - 70 % Normal 11-25-2019 [facility] (33066) Comment: Performed By: #### [id number] ## ## [facility],[address] [place] [address] 53085 CBC + DIFF Normal 11-25-2019 [facility] (70782) Comment: Result Comment: CBC-COMPLETE BLOOD COUNT Performed By: #### [id number] ## ## [facility],[address] [place] [address] 83054 Erythrocyte distribution 13.4 12.0 - 15.6 % Normal [facility] (RBC) [Ratio] [facility] (70450) Comment: Performed By: #### [id number] ## ## [facility],[address] [place] [address] 39882 Hematocrit (Bld) [Volume 32.5 34.0 - 46.0 % Low [facility]] [facility] ( 34996) Comment: Performed By: #### [id number] ## ## [facility],[address] [place] [address] 74983 Hemoglobin (Bld) 11.4 12.0 - 16.0 g/dl Low 11-25-2019 [facility] [Mass/Vol] Hospital (68973) Comment: Performed By: #### [id number] ## ## [facility],[address] [place] [address] 15339 Lymphocytes/100 WBC (Bld) 40 20 - 40 % Normal 11-12 [facility] ( 90078) Comment: Performed By: #### [id number] ## ## [facility],[address] [place] [address] 02270 MANUAL DIFF SEE BELOW Normal 11-25-2019 [facility] (25377) Comment: Performed By: #### [id number] ## ## [facility],[address] [place] [address] 83294 MCH (RBC) [Entitic mass] 31 27 - 33 pg Normal 11-24 [facility] ( 95454) Comment: Performed By: #### [id number] ## ## [facility],[address] [place] [address] 79404 MCHC (RBC) [Mass/Vol] 35 32 - 36 X10 3 Normal 11-25-19 20 [facility] ( 14292) Comment: Performed By: #### [id number] ## ## [facility],[address] [place] [address] 45713 MCV (RBC) [Entitic vol] 88 80 - 99 fl Normal 2019 [facility] ( 80681) Comment: Performed By: #### [id number] ## ## [facility],[address] [place] [address] 21485 Morphology Adrian (Bld) REVIEWED Normal 0 [facility] [Interp] [facility] ( 69224) Comment: Performed By: #### [id number] ## ## [facility],[address] [place] [address] 16633 Platelet mean volume 9.1 6.6 - 10.5 fl Normal 11-25-19 20 [facility] (Bld) [Entitic vol] [facility] (11273) Comment: Result Comment: AUTOMATED DI FFERENTIAL Performed By: #### [id number] ## ## [facility],[address] [place] [address] 54281 Platelets (Bld) 268 150 - 450 x10EE3/UL Normal 11-25-2019 [facility] [#/Vol] [facility] (77867) Comment: Performed By: #### [id number] ## ## [facility],[address] [place] [address] 10120 RBC (Bld) [#/Vol] 3.69 4.10 - 5.30 x 10EE6/UL Low 0 [facility] ( 02536) Comment: Performed By: #### [id number] ## ## [facility],[address] [place] [address] 65255 WBC (Bld) [#/Vol] 11.4 4.5 - 10.8 x 10EE3/UL High 11-25-2019 [facility] ( 56988) Comment: Performed By: #### [id number] ## ## [facility],[address] [place] [address] 55940 tsh on 2019-11-24 TSH Qn 3.920 0.270-4.200 uU/mL Normal 11-24-2019 [facility] (52910) Comment: Result Comment: If the patie nt is , TSH reference range varies by gestational period: First Trimester (weeks 9-12) : 0.180-2.990 mcIU/mL Second Trimester: 0.110-3.98 0 mcIU/mL Third Trimester: 0.480-4.710 mcIU/mL Leander Bro et al. A Practica l Approach for the Verifications and Determination of Site- and Trimester-Specific Reference Intervals for Thyroid Function tests in . Thyroid, 2019:29:3:412-420. Cesario barragan E, et al. 2017 Guide lines of the [place] [employer] for the Diagnosis and Management of Thyroid Disease during and the . Thyroid, 2017:27:3:315-389. Performed By: #### TSH, CBCD IF, CMP ####[facility] [id number] [place], [place] [phone] troponin t on 11-23 Troponin T.cardiac Test sent to 0.000-0.029 Normal 2019 [facility] [Mass/Vol] [facility] (13779) [facility]. Comment: Result Comment: Account Cred ited HIDE progress on 2019-11 PROGRESS HNO ID: [id number] Normal 11-24-2019 [facility] Author: Jay) Hugo Kimberly ([id number]) Service: ? Author Type: Physician Taximeter Repairer Type: Progress Notes Filed: 11/24/2019 9:33 AM Note Text: 11/24/2019 Patient presents with: ED Follow-up: Patient is here for follow up on pneumonia SUBJECTIVE: This is a 39 year old that is here today for ER Follow Up.. Patient was seen last week for shortness of breath and chest pain. D-dimer positive. Sent to ER for eval and CT showed early pneumonia. Treated with 5 days of levaquin. Patient symptoms worsened son on 11/18 patient went back to ER for eval. They rechecked EKG and labs. EKG still showing incomplete RBBB and nonspecific T wave cali nges. Cardio consult was placed by myself last week but she has no t been scheduled yet. Patient c/o of hallucinations and anxiety. States she used t o be treated for this but lost her insurance and was forced to see a [facility] psychiatrist who isn't helping her. Only spoke with her twice. States she is in a lot of pain and trouble sleeping. States gabapentin used to work for her but when she lost her insurance. PAST MEDICAL HISTORY Diagnosis Date - Allergic rhinitis, cause unspecified 05/17/2008 Spring and summer - Benign liver cyst 05/24/2010 CT scan at [facility] 11/2009 and 04/2010 showe 4 mm increase in size . No pain. No elevated LFTs on 03/11/2010. - Calculus of kidney 05/17/[address] Nicolas: Hospitalized age 20, and again later -- no procedures so far [facility] - Dysmenorrhea - Impaired fasting glucose 05/17/2008 Sugar 104 fasting, 04/21 - MIGRAINE 05/17/2008 Has used imitrex with good response; Keeps Vicodin on hand w hen needed; - Ovarian cyst 07/15/2012 - Smoker 05/17/2008 Started age 26, 1/2 a PPD ALLERGIES Asa [Salicylates]; Contrast Dye [Iodine]; Flagyl [ Metronidazole Hcl]; Ibuprofen; Penicillins; Prednisone MEDICATIONS Current Outpatient Medications Medication Sig - ibuprofen (MOTRIN) 200 mg tablet Take 200 mg by mouth ever y 6 hours as needed. - albuterol HFA (VENTOLIN HFA) 90 mcg/actuation inhaler Inha le 2 Puffs as instructed every 4 hours as needed. - amitriptyline (ELAVIL) 50 mg tablet Take 1 tablet by mouth daily at bedtime. - cyclobenzaprine (FLEXERIL) 10 mg tablet Take 1 tablet by m outh three times daily as needed for Muscle Spasm. (Patient not taking: Reported on 11/18/2019 ) No current facility-administered medications for this visit. SOCIAL HISTORY Social History Tobacco Use - Smoking status: Former Smoker Packs/day: 0.50 Years: 3.00 Pack years: 1.50 Types: Cigarettes Last attempt to quit: 01/12/2017 Years since quittin.8 - Smokeless tobacco: Never Used - Tobacco comment: Approx. 3 cigarettes daily-1 pack every w [place] Substance Use Topics - Alcohol use: Yes Comment: Occasional - Drug use: No REVIEW OF SYSTEMS All other reviewed and negative other than HPI. OBJECTIVE: BP 122/88 (BP Site: Right Arm, BP Position: Sitting, BP Cuff Size: Large Adult) Pulse 94 Temp 36.7 ?C (98 ?F) (Tympanic) Resp 1 8 Wt 88.9 kg (196 lb) LMP 08/10/2006 BMI 37.03 kg/m? APPEARANCE Well appearing, alert, in no acute distress, well -hydrated, well nourished. NECK Supple, no adenopathy; thyroid symmetric, normal size, no bruits HEART RRR with normal S1 and S2, no murmurs, no gallops, no JVD appreciated LUNG clear to auscultation EXTREMITIES Extremities normal, No deformities, No skin disc oloration, No edema and Normal pulses bilaterally. PSYCH: Appearance: well dressed well groomed, cooperative and pleas ant Behavior: poor eye contact Speech: fluent and coherent Mood: anxious and depressed Affect: constricted Perceptions: hallucinations- auditory Thought process: perseverative Thought Content: preoccupations with medications Intelligence level: normal Insight: poor Judgment: poor ASSESSMENT/PLAN: 1. Bacterial pneumonia - ICD9: 482.9, ICD10: J15.9 (primary diagnosis) Will extend levaquin for another 5 days. Check CBC - CBC + DIFF 2. Generalized anxiety disorder - ICD9: 300.02, ICD10: F41.1 Encouraged patient to get back in with psych for treatment. Discussed that her insomnia will only be worse if she has un treated anxiety or other psychiatric illnesses - CONSULT TO [facility] ADULT 3. SOB (shortness of breath) - ICD9: 786.05, ICD10: R06.02 As #1 4. Chest pain, unspecified type - ICD9: 786.50, ICD10: R07.9 Atypical chest pain, Patient to get in with cardio 5. Incomplete RBBB - ICD9: 426.4, ICD10: I45.10 As #4 6. Chronic pain syndrome - ICD9: 338.4, ICD10: G89.4 Will start gabapentin. Patient to follow up in 4 months. Sooner prn. Time with patient face to face was 25 min with 50% of visit spent in counseling. ISABEL ARIAS PA-C d dimer on D dimer Test sent to [place] <500 Normal 0 [facility]. (49234) Comment: Result Comment: Account Cred ited HIDE comp metabolic panel on 2019-11-24 Albumin [Mass/Vol] 4.4 3.9-4.9 g/dL Normal 11-24-2019 [facility] (24147) Comment: Performed By: #### TSH, CBCD IF, CMP ####[facility] [id number] [place] [address] [phone] ALP [Catalytic activity/Vol] 105 34-123 U/L Normal 0 11-24-2019 [facility] (40424) Comment: Performed By: #### TSH, CBCD IF, CMP ####[facility] [id number] [place] [address] [phone] ALT [Catalytic activity/Vol] 6 7-38 U/L Low 0 11-24-2019 [facility] (30769) Comment: Performed By: #### TSH, CBCD IF, CMP ####[facility] [place] [address] [phone] Anion gap [Moles/Vol] 12 9-18 mmol/L Normal 11-24-19 20 [facility] (64669) Comment: Performed By: #### TSH, CBCD IF, CMP ####[place] [address] [address] [place] [address] [phone] AST [Catalytic activity/Vol] 14 13-35 U/L Normal 0 11-24-2019 [facility] (55800) Comment: Performed By: #### TSH, CBCD IF, CMP ####[place] [address] [phone] Bilirubin [Mass/Vol] 0.4 0.2-1.3 mg/dL Normal 0 [facility] (54996) Comment: Performed By: #### TSH, CBCD IF, CMP ####[place] [address] [address] [place] [address] [phone] Calcium [Mass/Vol] 9.9 8.5-10.2 mg/dL Normal 11-24-2019 [facility] (79238) Comment: Performed By: #### TSH, CBCD IF, CMP ####[facility] [place] [address] [phone] Chloride [Moles/Vol] 101 97-105 mmol/L Normal 0 [facility] (04806) Comment: Performed By: #### TSH, CBCD IF, CMP ####[place] [id number] [place] [address] [phone] CO2 [Moles/Vol] 23 22-30 mmol/L Normal 11-24-2019 [facility] (32314) Comment: Performed By: #### TSH, CBCD IF, CMP ####[facility] [address] [place] [address] [phone] Creatinine [Mass/Vol] 0.93 0.58-0.96 mg/dL Normal 11-24-19 [facility] ([id number]) Comment: Performed By: #### TSH, CBCD IF, CMP ####[facility] [address] [address] [phone] eGFR- Amer. >60 Normal 11-24-2019 [facility] ([id number]) Comment: Performed By: #### TSH, CBCD IF, CMP ####[facility] [address] [phone] GFR/1.73 sq M predicted >60 mL/min/{1.73_m2} Normal 11-24-2019 [facility] among non-blacks [facility] ([id number]) (S/P/Bld) [Vol rate/Area] Comment: Result Comment: eGFR (Estima arnie GFR) Units of measure: mL/min/1.73 meters squared eGFR is derived from the ree xpressed MDRD Study equation using the following parameters: serum creatinine, age, gender and race. The creatinine assay has been calibrated to be traceable to IDMS. An eGFR <60 mL/min/1.73m2 fo r >3 months is consistent with chronic kidney disease. Refer to KDOQI guidelines for clinical interpretation. In patients with unstable re nal function, e.g. those with acute kidney injury, the eGFR may not accurately reflect actual GFR. Performed By: #### TSH, CBCD IF, CMP ####[facility] [address] [place] [address] [phone] Glucose [Mass/Vol] 98 74-99 mg/dL Normal 11-24-2019 [facility] (08074) Comment: Result Comment: The [place] [employer] (ADA) provides guidance for cutoff values for fasting glucose and random glucose. The ADA defines fasting as no caloric intake for at least 8 hours. Fas ting plasma glucose results between 100 to 125 mg/dL indicate increased risk for diabetes (prediabetes). Fasting plasma glucose resul ts greater than or equal to 126 mg/dL meet the criteria for diagnosis of diabetes. In the absence of unequivocal hyperglycemia, results should be confirmed by repeat testing. In a patient with classic s ymptoms of hyperglycemia or hyperglycemic crisis, random plasma glucose results greater than or equal to 200 mg/dL meet the criteria for diagnosis of diabetes. Reference: Standards of [facility] Care in Diabetes 2016, [place] [employer]. Diabetes Care. 2016.39(Suppl 1). Performed By: #### TSH, CBCD IF, CMP ####[facility] [address] [phone] Potassium [Moles/Vol] 4.1 3.7-5.1 mmol/L Normal 11-24-19 [facility] (40286) Comment: Performed By: #### TSH, CBCD IF, CMP ####[place] [address] [phone] Protein [Mass/Vol] 7.6 6.3-8.0 g/dL Normal 11-24-2019 [facility] (76348) Comment: Performed By: #### TSH, CBCD IF, CMP ####[place] [address] [place] [address] [phone] Sodium [Moles/Vol] 136 136-144 mmol/L Normal 11-24-2019 [facility] ([id number]) Comment: Performed By: #### TSH, CBCD IF, CMP ####[place] [address] [phone] Urea nitrogen [Mass/Vol] 21 7-21 mg/dL Normal 11-23 [facility] (36546) Comment: Performed By: #### TSH, CBCD IF, CMP ####[place] [address] [phone] cnpn on 2019-11-24 CNPN Telephone (FAMPWS) Normal 11-24-2019 [facility] SALLY MCGREGOR ([id number]) 1980 [facility] Time Provider Department ([id number]) 11/24/19 MARCELINO MEJIA During your visit today, we recorded the following informati on about you: Yvette Huffman RN 11/24/2019 3:23 PM Signed Pt called, verified by name and birthdate. Pt wants to know if provider will fax letter that was written today to for her child support to be addressed. Please advise Yvette Bruce Ma 11/24/2019 3:33 PM Signed Faxed letter. Spoke with patient and she indicated that she pays support but is currently unemployed and needs to show that she is under doctor care. I did explain to patient that she is onl y under doctor for the the [facility] states in the letter. Valente Bruce Ma' Allergies As of Date: 11/24/2019 Noted Allergy Reaction ASA (SALICYLATES) 01/27/2011 14 - Other: See Comments Comments: ulcers CONTRAST DYE (IODINE) 05/17/2008 12 - Shortness of Breath FLAGYL (METRONIDAZOLE HCL) 03/11/2010 12 - Shortness of [place] th IBUPROFEN 06/18/2016 8 - GI Upset PENICILLINS 12/07/2009 2 - Rash PREDNISONE 06/18/2016 14 - Other: See Comments Comments: makes agitated and mean Date Reviewed: 11/24/2019 Reviewed by: Randi Arias - Fully Assessed Reason for Visit: Letter [264] Prescriptions as of 11/24/2019 Sig: IBUPROFEN 200 MG TABLET Take 200 mg by mouth every 6 * ALBUTEROL SULFATE HFA 90 MCG/* Inhale 2 Puffs as instructed * LEVOFLOXACIN 500 MG TABLET Take 1 tablet by mouth once d* GABAPENTIN 300 MG CAPSULE Take 1 capsule by mouth daily* AMITRIPTYLINE 50 MG TABLET Take 1 tablet by mouth daily * CYCLOBENZAPRINE 10 MG TABLET Take 1 tablet by mouth three * Patient not taking: Reported on 11/18/2019 Problem List As Of Date 11/24/2019 Noted Resolved Routine gynecological examination [Z01.419] 05/17/2008 Class: Chronic More... More... Family history of diabetes mellitus [Z83.3] 05/17/2008 More... Calculus of kidney [N20.0] 05/17/2008 More... Allergic rhinitis, cause unspecified [J30.9] 05/17/2008 More... Migraine without aura [G43.009] 05/17/2008 More... Smoker [F17.200] 05/17/2008 More... Impaired fasting glucose [R73.01] 05/17/2008 More... Benign liver cyst [K76.89] 05/24/2010 Class: Chronic More... Ovarian cyst [N83.209] 07/15/2012 Generalized anxiety disorder [F41.1] 03/31/2016 Reactive depression [F32.9] 03/31/2016 More... Adjustment insomnia [F51.02] 03/31/2016 Encounter for screening for cardiovascular diso*03/31/2016 Bilateral low back pain without sciatica [M54.5]06/18/2016 More... Pain in left hip [M25.552] 06/18/2016 Greater trochanteric bursitis [M70.60] 06/18/2016 Hydronephrosis of left kidney [N13.30] 02/05/2017 Hydroureter on left [N13.4] 02/05/2017 Right facial numbness [R20.0] 02/23/2017 Right upper extremity numbness [R20.0] 02/23/2017 Numbness of right lower extremity [R20.0] 02/23/2017 Weakness of right upper extremity [R29.898] 02/23/2017 Weakness of right lower extremity [R29.898] 02/23/2017 Vision blurred [H53.8] 02/23/2017 Lumbar spine pain [M54.5] 02/23/2017 Cervical spine pain [M54.2] 02/23/2017 Abnormal MRI, lumbar spine [R93.7] 02/23/2017 Hydroureter, left [N13.4] 03/30/2017 Encounter Status:Closed by VALENTE BRUCE MA on 11/24/19 CNPN Telephone (FAMPWS) Normal 11-24-2019 [facility] SALLY MCGREGOR ([id number]) 1980 [facility] Date Time Provider Department ([id number]) 11/24/19 [facility] ARIAS[facility] During your visit today, we recorded the following informati on about you: Lorenzo Vu 11/24/2019 12:40 PM Signed 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 If so please fax to [employer] fax [phone]. ISABEL ARIAS PA-C 11/24/2019 1:00 PM Signed Letter ready. MAYA Bowser Ma 11/24/2019 3:11 PM Signed Faxed letter. refaxed Dr. Les ambroes. Valente Bruce Ma Allergies As of Date: 11/24/2019 Noted Allergy Reaction ASA (SALICYLATES) 01/27/2011 14 - Other: See Comments Comments: ulcers CONTRAST DYE (IODINE) 05/17/2008 12 - Shortness of Breath FLAGYL (METRONIDAZOLE HCL) 03/11/2010 12 - Shortness of [place] th IBUPROFEN 06/18/2016 8 - GI Upset PENICILLINS 12/07/2009 2 - Rash PREDNISONE 06/18/2016 14 - Other: See Comments Comments: makes agitated and mean Date Reviewed: 11/24/2019 Reviewed by: Randi Arias - Fully Assessed Reason for Visit: work excuse [Other] Prescriptions as of 11/24/2019 Sig: IBUPROFEN 200 MG TABLET Take 200 mg by mouth every 6 * ALBUTEROL SULFATE HFA 90 MCG/* Inhale 2 Puffs as instructed * LEVOFLOXACIN 500 MG TABLET Take 1 tablet by mouth once d* GABAPENTIN 300 MG CAPSULE Take 1 capsule by mouth daily* AMITRIPTYLINE 50 MG TABLET Take 1 tablet by mouth daily * CYCLOBENZAPRINE 10 MG TABLET Take 1 tablet by mouth three * Patient not taking: Reported on 11/18/2019 Problem List As Of Date 11/24/2019 Noted Resolved Routine gynecological examination [Z01.419] 05/17/2008 Class: Chronic More... More... Family history of diabetes mellitus [Z83.3] 05/17/2008 More... Calculus of kidney [N20.0] 05/17/2008 More... Allergic rhinitis, cause unspecified [J30.9] 05/17/2008 More... Migraine without aura [G43.009] 05/17/2008 More... Smoker [F17.200] 05/17/2008 More... Impaired fasting glucose [R73.01] 05/17/2008 More... Benign liver cyst [K76.89] 05/24/2010 Class: Chronic More... Ovarian cyst [N83.209] 07/15/2012 Generalized anxiety disorder [F41.1] 03/31/2016 Reactive depression [F32.9] 03/31/2016 More... Adjustment insomnia [F51.02] 03/31/2016 Encounter for screening for cardiovascular diso*03/31/2016 Bilateral low back pain without sciatica [M54.5]06/18/2016 More... Pain in left hip [M25.552] 06/18/2016 Greater trochanteric bursitis [M70.60] 06/18/2016 Hydronephrosis of left kidney [N13.30] 02/05/2017 Hydroureter on left [N13.4] 02/05/2017 Right facial numbness [R20.0] 02/23/2017 Right upper extremity numbness [R20.0] 02/23/2017 Numbness of right lower extremity [R20.0] 02/23/2017 Weakness of right upper extremity [R29.898] 02/23/2017 Weakness of right lower extremity [R29.898] 02/23/2017 Vision blurred [H53.8] 02/23/2017 Lumbar spine pain [M54.5] 02/23/2017 Cervical spine pain [M54.2] 02/23/2017 Abnormal MRI, lumbar spine [R93.7] 02/23/2017 Hydroureter, left [N13.4] 03/30/2017 Letter Text Encounter Status:Closed by VALENTE BRUCE MA on 11/24/19 CNPN Telephone (FAMPWS) Normal 11-24-2019 [facility] ASLLY MCGREGOR ([id number]) 1980 [facility] Date Time Provider Department ([id number]) 11/24/19 MARCELINO MEJIA [facility] During your visit today, we recorded the following informati on about you: Yvette Huffman RN 11/24/2019 12:00 PM Signed Aidee from [facility] lab called, verified pt by name and date of . Aidee has critical high d-dimer of 1.14. result verified by read back. Please advise Yvette ARIAS PA-C 11/24/2019 12:13 PM Signed Noted. Patient has already been evaluated for clot by ER. D- dimshiva likely elevated due to current infection. Please ask lab to cancel the CMP and TSH. Only lab I need right now is the CBC. MAYA Bowser Ma 11/24/2019 4:00 PM Signed Lab notified. Valente Bruce Ma Allergies As of Date: 11/24/2019 Noted Allergy Reaction ASA (SALICYLATES) 01/27/2011 14 - Other: See Comments Comments: ulcers CONTRAST DYE (IODINE) 05/17/2008 12 - Shortness of Breath FLAGYL (METRONIDAZOLE HCL) 03/11/2010 12 - Shortness of [place] th IBUPROFEN 06/18/2016 8 - GI Upset PENICILLINS 12/07/2009 2 - Rash PREDNISONE 06/18/2016 14 - Other: See Comments Comments: makes agitated and mean Date Reviewed: 11/24/2019 Reviewed by: Randi Arias - Fully Assessed Reason for Visit: Critical Results [1705] Prescriptions as of 11/24/2019 Sig: IBUPROFEN 200 MG TABLET Take 200 mg by mouth every 6 * ALBUTEROL SULFATE HFA 90 MCG/* Inhale 2 Puffs as instructed * LEVOFLOXACIN 500 MG TABLET Take 1 tablet by mouth once d* GABAPENTIN 300 MG CAPSULE Take 1 capsule by mouth daily* AMITRIPTYLINE 50 MG TABLET Take 1 tablet by mouth daily * CYCLOBENZAPRINE 10 MG TABLET Take 1 tablet by mouth three * Patient not taking: Reported on 11/18/2019 Problem List As Of Date 11/24/2019 Noted Resolved Routine gynecological examination [Z01.419] 05/17/2008 Class: Chronic More... More... Family history of diabetes mellitus [Z83.3] 05/17/2008 More... Calculus of kidney [N20.0] 05/17/2008 More... Allergic rhinitis, cause unspecified [J30.9] 05/17/2008 More... Migraine without aura [G43.009] 05/17/2008 More... Smoker [F17.200] 05/17/2008 More... Impaired fasting glucose [R73.01] 05/17/2008 More... Benign liver cyst [K76.89] 05/24/2010 Class: Chronic More... Ovarian cyst [N83.209] 07/15/2012 Generalized anxiety disorder [F41.1] 03/31/2016 Reactive depression [F32.9] 03/31/2016 More... Adjustment insomnia [F51.02] 03/31/2016 Encounter for screening for cardiovascular diso*03/31/2016 Bilateral low back pain without sciatica [M54.5]06/18/2016 More... Pain in left hip [M25.552] 06/18/2016 Greater trochanteric bursitis [M70.60] 06/18/2016 Hydronephrosis of left kidney [N13.30] 02/05/2017 Hydroureter on left [N13.4] 02/05/2017 Right facial numbness [R20.0] 02/23/2017 Right upper extremity numbness [R20.0] 02/23/2017 Numbness of right lower extremity [R20.0] 02/23/2017 Weakness of right upper extremity [R29.898] 02/23/2017 Weakness of right lower extremity [R29.898] 02/23/2017 Vision blurred [H53.8] 02/23/2017 Lumbar spine pain [M54.5] 02/23/2017 Cervical spine pain [M54.2] 02/23/2017 Abnormal MRI, lumbar spine [R93.7] 02/23/2017 Hydroureter, left [N13.4] 03/30/2017 Encounter Status:Closed by VALENTE BRUCE MA on 11/24/19 cnov on 2019-11-24 CNOV Office Visit (FAMPWS) Normal 11-24-19 [facility] SALLY MCGREGOR ([id number]) 1980 [facility] Date Time Provider Department ([id number]) 11/24/19 9:20 AM JAY ARIAS) FAMPWS During your visit today, we recorded the following informati on about you: Temperature Pulse Respiration Blood pressure 98 degrees 94/minute 18/minute 122/88 Weight 88.9 kg ISABEL ARIAS PA-C 11/24/2019 9:33 AM Signed 11/24/2019 Patient presents with: ED Follow-up: Patient is here for follow up on pneumonia SUBJECTIVE: This is a 39 year old that is here today for ER Follow Up.. Patient was seen last week for shortness of breath and chest pain. D-dimer positive. Sent to ER for eval and CT showed early pneumoni a. Treated with 5 days of levaquin. Patient symptoms worsened son on 11/18 patient went back to ER for eval. They rechecked EKG and labs. EKG still showing incomplete RBBB and nonspecific T wave cali nges. Cardio consult was placed by myself last week but she has not been scheduled yet. Patient c/o of hallucinations and anxiety. States she used to be treated for this but lost her insurance and was forc ed to see a different psychiatrist who isn't helping her. Only spoke with her twice. States she is in a lot of pain and troub le sleeping. States gabapentin used to work for her but when she lost her insurance. PAST MEDICAL HISTORY Diagnosis Date - Allergic rhinitis, cause unspecified 05/17/2008 Spring and summer - Benign liver cyst 05/24/2010 CT scan at [facility] 11/2009 and 04/2010 showe 4 mm increase in size . No pain. No elevated LFTs on 03/11/2010. - Calculus of kidney 05/17/[address] Nicolas: Hospitalized age 20, a nd again later -- no procedures so far ([facility], [facility], 1995 [facility]) - Dysmenorrhea - Impaired fasting glucose 05/17/2008 Sugar 104 fasting, 04/21 - MIGRAINE 05/17/2008 Has used imitrex with good response; Keeps Vicodin on hand w hen needed; - Ovarian cyst 07/15/2012 - Smoker 05/17/2008 Started age 26, 1/2 a PPD ALLERGIES Asa [Salicylates]; Contrast Dye [Iodine]; Flagyl [Metronidazole Hcl]; Ibuprofen; Penicillins; Prednisone MEDICATIONS Current Outpatient Medications Medication Sig - ibuprofen (MOTRIN) 200 mg tablet Take 200 mg by mouth ever y 6 hours as needed. - albuterol HFA (VENTOLIN HFA) 90 mcg/actuation inhaler Inha le 2 Puffs as instructed every 4 hours as needed. - amitriptyline (ELAVIL) 50 mg tablet Ta ke 1 tablet by mouth daily at bedtime. - cyclobenzaprine (FLEXERIL) 10 mg tablet Take 1 table t by mouth three times daily as needed for Muscle Spasm. (Patient not taking: Rep orted on 11/18/2019 ) No current facility-administered medications for this visit. SOCIAL HISTORY Social History Tobacco Use - Smoking status: Former Smoker Packs/day: 0.50 Years: 3.00 Pack years: 1.50 Types: Cigarettes Last attempt to quit: 01/12/2017 Years since quittin.8 - Smokeless tobacco: Never Used - Tobacco comment: Approx. 3 cigarettes daily-1 pack every w [place] Substance Use Topics - Alcohol use: Yes Comment: Occasional - Drug use: No REVIEW OF SYSTEMS All other reviewed and negative other than HPI. OBJECTIVE: BP 122/88 (BP Site: Right Ar m, BP Position: Sitting, BP Cuff Size: Large Adult) Pulse 94 Temp 36.7 ?C (98 ?F) (Tympanic) Resp 18 Wt 88.9 kg (196 lb) LMP 08/10/2006 BMI 37.03 kg/m? APPEARANCE Well appearing, alert, in no acute distress, we ll-hydrated, well nourished. NECK Supple, no adenopathy; thyroid symmetric, normal size, no bruits HEART RRR with normal S1 and S2, no murmurs, no gallops, n o JVD appreciated LUNG clear to auscultation EXTREMITIES Extremities norm al, No deformities, No skin discoloration, No edema and Normal pulses bilaterally. PSYCH: Appearance: well dressed well groomed, cooperative and pleas ant Behavior: poor eye contact Speech: fluent and coherent Mood: anxious and depressed Affect: constricted Perceptions: hallucinations- auditory Thought process: perseverative Thought Content: preoccupations with medications Intelligence level: normal Insight: poor Judgment: poor ASSESSMENT/PLAN: 1. Bacterial pneumonia - ICD9: 482.9, ICD10: J15.9 (primary diagnosis) Will extend levaquin for another 5 days. Check CBC - CBC + DIFF 2. Generalized anxiety disorder - ICD9: 300.02, ICD10: F41.1 Encouraged patient to get back in with psych for treatment. Discussed that her insomnia will only be worse if she has untreated anxiety or other psychiatric illnesses - CONSULT TO [facility] ADULT 3. SOB (shortness of breath) - ICD9: 786.05, ICD10: R06.02 As #1 4. Chest pain, unspecified type - ICD9: 786.50, ICD10: R07.9 Atypical chest pain, Patient to get in with cardio 5. Incomplete RBBB - ICD9: 426.4, ICD10: I45.10 As #4 6. Chronic pain syndrome - ICD9: 338.4, ICD10: G89.4 Will start gabapentin. Patient to follow up in 4 months. Sooner prn. Time with patient face to face was 25 min with 50% of visit spent in counseling. ISABEL ARIAS PA-C Referring Provider: SELF [200] Allergies As of Date: 11/24/2019 Noted Allergy Reaction ASA (SALICYLATES) 01/27/2011 14 - Other: See Comments Comments: ulcers CONTRAST DYE (IODINE) 05/17/2008 12 - Shortness of Breath FLAGYL (METRONIDAZOLE HCL) 03/11/2010 12 - Shortness of [place] th IBUPROFEN 06/18/2016 8 - GI Upset PENICILLINS 12/07/2009 2 - Rash PREDNISONE 06/18/2016 14 - Other: See Comments Comments: makes agitated and mean Date Reviewed: 11/24/2019 Reviewed by: Randi Arias - Fully Assessed Reason for Visit: ED Follow-up [821] Cmt: Patient is here for follow up on pne umonia Primary Visit Diagnosis:Bacterial pneumonia [J15.9] Other Visit Diagnoses:Generalized anxiety disorder [F41.1] SOB (shortness of breath) [R06.02] Chest pain, unspecified type [R07.9] Incomplete RBBB [I45.10] Chronic pain syndrome [G89.4] Order(s):CONSULT TO [facility] JOSE LT [[id number]] Order #: [id number]: 1 levoFLOXacin (LEVAQUIN) 500 mg tabletTake 1 tablet by mouth once daily for 5 days.Disp: 5 tabletRfl: 0 gabapentin (NEURONTIN) 300 mg capsuleTake 1 capsule by mouth daily at bedtime for 90 days.Disp: 30 capsuleRfl: 2 Prescriptions as of 11/24/2019 Sig: IBUPROFEN 200 MG TABLET Take 200 mg by mouth every 6 * ALBUTEROL SULFATE HFA 90 MCG/* Inhale 2 Puffs as instructed * AMITRIPTYLINE 50 MG TABLET Take 1 tablet by mouth daily * LEVOFLOXACIN 500 MG TABLET Take 1 tablet by mouth once d* GABAPENTIN 300 MG CAPSULE Take 1 capsule by mouth daily* CYCLOBENZAPRINE 10 MG TABLET Take 1 tablet by mouth three * Patient not taking: Reported on 11/18/2019 Problem List As Of Date 11/24/2019 Noted Resolved Routine gynecological examination [Z01.419] 05/17/2008 Class: Chronic More... More... Family history of diabetes mellitus [Z83.3] 05/17/2008 More... Calculus of kidney [N20.0] 05/17/2008 More... Allergic rhinitis, cause unspecified [J30.9] 05/17/2008 More... Migraine without aura [G43.009] 05/17/2008 More... Smoker [F17.200] 05/17/2008 More... Impaired fasting glucose [R73.01] 05/17/2008 More... Benign liver cyst [K76.89] 05/24/2010 Class: Chronic More... Ovarian cyst [N83.209] 07/15/2012 Generalized anxiety disorder [F41.1] 03/31/2016 Reactive depression [F32.9] 03/31/2016 More... Adjustment insomnia [F51.02] 03/31/2016 Encounter for screening for cardiovascular diso*03/31/2016 Bilateral low back pain without sciatica [M54.5]06/18/2016 More... Pain in left hip [M25.552] 06/18/2016 Greater trochanteric bursitis [M70.60] 06/18/2016 Hydronephrosis of left kidney [N13.30] 02/05/2017 Hydroureter on left [N13.4] 02/05/2017 Right facial numbness [R20.0] 02/23/2017 Right upper extremity numbness [R20.0] 02/23/2017 Numbness of right lower extremity [R20.0] 02/23/2017 Weakness of right upper extremity [R29.898] 02/23/2017 Weakness of right lower extremity [R29.898] 02/23/2017 Vision blurred [H53.8] 02/23/2017 Lumbar spine pain [M54.5] 02/23/2017 Cervical spine pain [M54.2] 02/23/2017 Abnormal MRI, lumbar spine [R93.7] 02/23/2017 Hydroureter, left [N13.4] 03/30/2017 Prescriptions ordered this encounter Disp Refills Start End LEVOFLOXACIN 500 MG TABLET 5 ta* 0 11/24/2019 11/29/2019 Route: ORAL Sig: Take 1 tablet by mouth once daily for 5 days. GABAPENTIN 300 MG CAPSULE 30 c* 2 11/24/2019 02/22/2020 Route: ORAL Sig: Take 1 capsule by mouth daily at bedtime for 90 days. Follow-up and Disposition History Recorded Encounter Status:Closed by ISABEL WARE on 11/24/19 cbc and differential on 2019-11-24 Abs Baso 0.06 <0.11 k/uL Normal 11-24-2019 [facility] ([id number]) Comment: Performed By: #### TSH, CBCD IF, CMP ####[place] [address] [place] [address] [phone] Abs Curry 0.43 <0.87 k/uL Normal 11-24-2019 [facility] ([id number]) Comment: Performed By: #### TSH, CBCD IF, CMP ####[place] [address] [address] [address] [phone] Abs Neut 5.59 1.45-7.50 k/uL Normal 11-24-2019 [facility] ([id number]) Comment: Performed By: #### TSH, CBCD IF, CMP ####[place] [address] [address] [address] [phone] Absolute nRBC <0.01 <0.01 Normal 11-24-2019 [facility] (11115) Comment: Performed By: #### TSH, CBCD IF, CMP ####[place] [address] [address] [address] [phone] Basophils/100 WBC (Bld) 0.7 % Normal 2019 [facility] (31041) Comment: Performed By: #### TSH, CBCD IF, CMP ####[place] [address] [address] [address] [phone] DTYPE Auto Diff Normal 11-24-2019 [facility] ([id number]) Comment: Performed By: #### TSH, CBCD IF, CMP ####[place] [address] [place] [address] [phone] Eosinophils (Bld) [#/Vol] 0.34 <0.46 k/uL Normal 11-12 [facility] (45495) Comment: Performed By: #### TSH, CBCD IF, CMP ####[place] [address] [place] [address] [phone] Eosinophils/100 WBC (Bld) 3.7 % Normal 11-12 [facility] (93013) Comment: Performed By: #### TSH, CBCD IF, CMP ####[facility] [place] [address] Erythrocyte distribution 13.1 11.5-15.0 % Normal 11-23 [facility] width (RBC) [Ratio] Kimberly ([id number]) Comment: Performed By: #### TSH, CBCD IF, CMP ####[facility] [address] [address] [phone] Hematocrit (Bld) [Volume 38.1 36.0-46.0 % Normal 11-23 [facility] fraction] Kimberly ([id number]) Comment: Performed By: #### TSH, CBCD IF, CMP ####[facility] [address] [phone] Hemoglobin (Bld) 11.7 11.5-15.5 g/dL Normal 11-24-2019 [facility] [Mass/Vol] Kimberly ([id number]) Comment: Performed By: #### TSH, CBCD IF, CMP ####[facility] [place] [address] [phone] Lymphocytes (Bld) [#/Vol] 2.69 1.00-4.00 k/uL Normal 11-12 [facility] (89243) Comment: Performed By: #### TSH, CBCD IF, CMP ####[facility] [address] [address] [phone] Lymphocytes/100 WBC (Bld) 29.5 % Normal 11-12 [facility] (24161) Comment: Performed By: #### TSH, CBCD IF, CMP ####[facility] [address] [place] [address] [phone] MCH (RBC) [Entitic mass] 29.3 26.0-34.0 pG Normal 11-23 [facility] ([id number]) Comment: Performed By: #### TSH, CBCD IF, CMP ####[facility] [address] [phone] MCHC (RBC) [Mass/Vol] 30.7 30.5-36.0 g/dL Normal 11-24-19 [facility] ([id number]) Comment: Performed By: #### TSH, CBCD IF, CMP ####[place] [id number] [place] [address] [phone] MCV (RBC) [Entitic vol] 95.3 80.0-100.0 fL Normal 11-23 [facility] ([address]463) Comment: Performed By: #### TSH, CBCD IF, CMP ####[place] [address] [address] [place] [address] [phone] Monocytes/100 WBC (Bld) 4.7 % Normal 2019 [facility] (74330) Comment: Performed By: #### TSH, CBCD IF, CMP ####[place] [address] [address] [phone] Neutrophils/100 WBC (Bld) 61.4 % Normal 11-12 [facility] (74108) Comment: Result Comment: Differential confirmed by visual scan of peripheral blood smear slide. Performed By: #### TSH, CBCD IF, CMP ####[place] [address] [address] [place] [address] [phone] NRBCs 0.0 0 /100 WBC Normal 11-24-2019 [facility] ([id number]) Comment: Performed By: #### TSH, CBCD IF, CMP ####[place] [address] [place] [address] [phone] Platelet mean volume 11.4 9.0-12.7 fL Normal 0 [facility] (Bld) [Entitic vol] Kimberly ([address]859) Comment: Performed By: #### TSH, CBCD IF, CMP ####[facility] [place] [address] [phone] Platelets (Bld) [#/Vol] 248 150-400 k/uL Normal 2019 [facility] (51722) Comment: Performed By: #### TSH, CBCD IF, CMP ####[facility] [place] [address] [phone] RBC (Bld) [#/Vol] 4.00 3.90-5.20 m/uL Normal 11-24-2019 C [facility] (57896) Comment: Performed By: #### TSH, CBCD IF, CMP ####[place] [address] [place] [address] [phone] WBC (Bld) [#/Vol] 9.11 3.70-11.00 k/uL Normal 11-24-2019 [facility] (77795) Comment: Performed By: #### TSH, CBCD IF, CMP ####[place] [address] [place] [address] [phone] cnpn on 2019-11-21 [facility] Normal 11-21-2019 [place] [facility] SALLY MCGREGOR ([id number]) 1980 [facility] Date Time Provider Department ([id number]) 11/21/19 MARCELINO MEJIA [facility] During your visit today, we recorded the following informati on about you: Janneth Zhou, RN, RN 11/21/2019 3:22 PM Signed Pt calls, stating Dr Fitzpatrick is not covered by her insurance. Advised pt to contact insurance company for a covered pain management prov ider. Pt verbalizes understanding. ISABEL ARIAS PA-C 11/21/2019 4:[address] Saldana. MAYA Bowser Ma 11/23/2019 11:15 AM Signed Faxed information to Dr. Pierre Allergies As of Date: 11/21/2019 Noted Allergy Reaction ASA (SALICYLATES) 01/27/2011 14 - Other: See Comments Comments: ulcers CONTRAST DYE (IODINE) 05/17/2008 12 - Shortness of Breath FLAGYL (METRONIDAZOLE HCL) 03/11/2010 12 - Shortness of María th IBUPROFEN 06/18/2016 8 - GI Upset PENICILLINS 12/07/2009 2 - Rash PREDNISONE 06/18/2016 14 - Other: See Comments Comments: makes agitated and mean Date Reviewed: 11/18/2019 Reviewed by: Valente Bruce Ma - Fully Assessed Reason for Visit: Results [95] Prescriptions as of 11/21/2019 Sig: AMITRIPTYLINE 50 MG TABLET Take 1 tablet by mouth daily * CYCLOBENZAPRINE 10 MG TABLET Take 1 tablet by mouth three * Patient not taking: Reported on 11/18/2019 Problem List As Of Date 11/21/2019 Noted Resolved Routine gynecological examination [Z01.419] 05/17/2008 Class: Chronic More... More... Family history of diabetes mellitus [Z83.3] 05/17/2008 More... Calculus of kidney [N20.0] 05/17/2008 More... Allergic rhinitis, cause unspecified [J30.9] 05/17/2008 More... Migraine without aura [G43.009] 05/17/2008 More... Smoker [F17.200] 05/17/2008 More... Impaired fasting glucose [R73.01] 05/17/2008 More... Benign liver cyst [K76.89] 05/24/2010 Class: Chronic More... Ovarian cyst [N83.209] 07/15/2012 Generalized anxiety disorder [F41.1] 03/31/2016 Reactive depression [F32.9] 03/31/2016 More... Adjustment insomnia [F51.02] 03/31/2016 Encounter for screening for cardiovascular diso*03/31/2016 Bilateral low back pain without sciatica [M54.5]06/18/2016 More... Pain in left hip [M25.552] 06/18/2016 Greater trochanteric bursitis [M70.60] 06/18/2016 Hydronephrosis of left kidney [N13.30] 02/05/2017 Hydroureter on left [N13.4] 02/05/2017 Right facial numbness [R20.0] 02/23/2017 Right upper extremity numbness [R20.0] 02/23/2017 Numbness of right lower extremity [R20.0] 02/23/2017 Weakness of right upper extremity [R29.898] 02/23/2017 Weakness of right lower extremity [R29.898] 02/23/2017 Vision blurred [H53.8] 02/23/2017 Lumbar spine pain [M54.5] 02/23/2017 Cervical spine pain [M54.2] 02/23/2017 Abnormal MRI, lumbar spine [R93.7] 02/23/2017 Hydroureter, left [N13.4] 03/30/2017 Encounter Status:Closed by VALENTE BRUCE MA on 11/23/[facility] Telephone (FAMPWS) Normal 11-19-2019 [place] [facility] SALLY MCGREGOR ([id number]) 1980 [facility] Date Time Provider Department ([id number]) 11/19/19 JC FELIX [facility] During your visit today, we recorded the following informati on about you: Ashwini Kruger DAVID 11/19/2019 10:47 AM Signed Patient calling, states she was seen in the office yesterday and sent to the ER for possible PE. CT scan showed no PE bu t did show kelly pneumonia. Patient was sent home with En and Enoc. Patient is stating that she was not able to sleep last night because of SOB and chest tightness. Asking if there is anything else that would be recommended for her today. Feels that if she went back to the ER they would not do anything for her. Please ad vise. Janneth Zhou, RN, RN 11/19/2019 11:48 AM Signed Pt calls checking on status of message. Jc Felix DO 11/19/2019 12:22 PM Signed Patient needs to be evaluated again in EMERGENCY DEPARTMENT Jc Felix DO Nenita Duncanester HERNANDEZ 11/21/2019 11:15 AM Signed Pt seen in [facility] ER on 11/19/19. Janneth Zhou, RN, RN 11/21/2019 2:18 PM Signed Pt calls, stating she went to ER and was told she has pneumonia. State no PE was detected. Pt states she still is having trouble breathin g. States she can't catch her breath. Pt states using inhaler but not ge tting relief. Advised pt to go back to ER. Pt verbalizes understanding. Allergies As of Date: 11/19/2019 Noted Allergy Reaction ASA (SALICYLATES) 01/27/2011 14 - Other: See Comments Comments: ulcers CONTRAST DYE (IODINE) 05/17/2008 12 - Shortness of Breath FLAGYL (METRONIDAZOLE HCL) 03/11/2010 12 - Shortness of [place] th IBUPROFEN 06/18/2016 8 - GI Upset PENICILLINS 12/07/2009 2 - Rash PREDNISONE 06/18/2016 14 - Other: See Comments Comments: makes agitated and mean Date Reviewed: 11/18/2019 Reviewed by: Valente Bruce Ma - Fully Assessed Reason for Visit: Question [5435] Patient Update [[id number]] Reason For Visit History Recorded Prescriptions as of 11/19/2019 Sig: AMITRIPTYLINE 50 MG TABLET Take 1 tablet by mouth daily * CYCLOBENZAPRINE 10 MG TABLET Take 1 tablet by mouth three * Patient not taking: Reported on 11/18/2019 Problem List As Of Date 11/19/2019 Noted Resolved Routine gynecological examination [Z01.419] 05/17/2008 Class: Chronic More... More... Family history of diabetes mellitus [Z83.3] 05/17/2008 More... Calculus of kidney [N20.0] 05/17/2008 More... Allergic rhinitis, cause unspecified [J30.9] 05/17/2008 More... Migraine without aura [G43.009] 05/17/2008 More... Smoker [F17.200] 05/17/2008 More... Impaired fasting glucose [R73.01] 05/17/2008 More... Benign liver cyst [K76.89] 05/24/2010 Class: Chronic More... Ovarian cyst [N83.209] 07/15/2012 Generalized anxiety disorder [F41.1] 03/31/2016 Reactive depression [F32.9] 03/31/2016 More... Adjustment insomnia [F51.02] 03/31/2016 Encounter for screening for cardiovascular diso*03/31/2016 Bilateral low back pain without sciatica [M54.5]06/18/2016 More... Pain in left hip [M25.552] 06/18/2016 Greater trochanteric bursitis [M70.60] 06/18/2016 Hydronephrosis of left kidney [N13.30] 02/05/2017 Hydroureter on left [N13.4] 02/05/2017 Right facial numbness [R20.0] 02/23/2017 Right upper extremity numbness [R20.0] 02/23/2017 Numbness of right lower extremity [R20.0] 02/23/2017 Weakness of right upper extremity [R29.898] 02/23/2017 Weakness of right lower extremity [R29.898] 02/23/2017 Vision blurred [H53.8] 02/23/2017 Lumbar spine pain [M54.5] 02/23/2017 Cervical spine pain [M54.2] 02/23/2017 Abnormal MRI, lumbar spine [R93.7] 02/23/2017 Hydroureter, left [N13.4] 03/30/2017 Encounter Status:Closed by NENITA RAI LPN on 11/21/19 xr chest 2v frontal/lat on 2019-11-18 XR CHEST 2V * * *Final Report* * * Normal 11-17 [facility] FRONTAL/LAT DATE OF EXAM: Nov 18 2019 12:48PM Kimberly WOX 5291 - XR CHEST 2V FRONTAL/LAT / ([id number]) PROCEDURE REASON: multiple diagnoses * * * * Physician Interpretation * * * * EXAMINATION: CHEST RADIOGRAPH (2 VIEW FRONTAL and LATERAL) CLINICAL HISTORY: SOB (shortness of breath) Chest pain, unsp ecified type MQ: [id number] EXAM DATE/TIME: 11/18/2019 12:48 PM COMPARISON: No relevant prior studies available. RESULT: Lines, tubes, and devices: None. Lungs and pleura: Small lung volume due to inadequate inspir ation. No consolidation. No lung mass. No pleural effusion. No pneumot horax. Cardiomediastinal silhouette: Probably normal cardiomediasti nal silhouette. Bones and soft tissues: Unremarkable. IMPRESSION: No acute radiographic abnormality. Parts Department Manager: PSCB Transcribe Date/Time: Nov 18 2019 1:01P Dictated by : KORI BLANKENSHIP MD This examination was interpreted and the report reviewed and electronically signed by: KORI BLANKENSHIP MD on Nov 18 2019 1:02PM EST [id number] progress on 2019-11 PROGRESS HNO ID: [id number] Normal 11-18-2019 [facility] Author: Kylee PickardRtVianey Lea [place] ([id number]) Service: ? Author Type: Radiographic Technologist Type: Progress Notes Filed: 11/18/2019 12:49 PM Note Text: Radiology Service Progress Note PATIENT NAME: Sally Mcgregor DATE OF SERVICE: November 18, 2019 TIME: 12:40 PM PATIENT IDENTITY VERIFICATION COMPLETED USING TWO (2) IDENTI FIERS: Name and Date of confirmed by patient verbally. PATIENT GENDER DATA: Female. status: : No status: NO. PATIENT RELEVANT IMPLANT DATA REVIEWED: Not Applicable RADIOLOGY DEPARTMENT: General X-ray: Exam(s) Completed: Ches t X-Ray PERIPHERAL IV DATA: Not applicable SIGNED BY: RT Olivier November 18, 2019 12:40 PM PROGRESS HNO ID: [id number] Normal 11-18-2019 [facility] Author: Randi Arias [place] ([id number]) Service: ? Author Type: Physician Taximeter Repairer Type: Progress Notes Filed: 11/18/2019 3:32 PM Note Text: Chief Complaint Patient presents with: Fatigue: Patient is here for fatigue; dizziness; nasuea; wea kness; headaches; 2 weeks HPI Sally Mcgregor is a 39 year old female who presents here to day for Above Complaints.. patient scheduled for physical but she does not want to do t his today. Patient states for the past 2 weeks she has not felt well. States she ovarian cyst removed in sep. And just feels like since then she is struggling. States that she is feeling shortness of breath with exertion . Some chest pain/tightness as well. States very fatigued. Having constant headaches and back pain States very weak. Couldn't get off the couch yesterday. Never saw a neurologist for her headaches. C/o of pain in back and legs. Headaches. Etc. States she was given gabapentin while in hospital which help ed or symptoms. I cannot find this in her records. She has been to ER multiple times recently. Has not told the m of the chest symptoms. States on Thursday she is seeing urology for kidney stones. Past medical history, appointments, medications, allergies r eviewed. Previous Medical History PAST MEDICAL HISTORY Diagnosis Date - Allergic rhinitis, cause unspecified 05/17/2008spring and summer - Benign liver cyst 05/24/2010 CT scan at [facility] 11/2009 and 04/2010 showe 4 mm increase in size . No pain. No elevated LFTs on 03/11/2010. - Calculus of kidney 05/17/[address] Nicolas: Hospitalized age 20, and again later -- [facility] so far [facility] - Dysmenorrhea - Impaired fasting glucose 05/17/2008 Sugar 104 fasting, 04/21 - MIGRAINE 05/17/2008 Has used imitrex with good response; Keeps Vicodin on hand w hen needed; - Ovarian cyst 07/15/2012 - Smoker 05/17/2008 Started age 26, 1/2 a PPD Previous Surgical History PAST SURGICAL HISTORY Procedure Laterality Date - DANDC, DIAG AND/OR THERAPEUTIC - LIGATE FALLOPIAN TUBE - PAST SURGICAL HISTORY OF uterine ablation - PAST SURGICAL HISTORY OF cyst removal - REMOVAL GALLBLADDER - REMOVAL OF OVARY(S) 2009 Oophorectomy right, still has left - REMOVAL OF OVARY(S) 01/2015 left removed - TOTAL ABDOM HYSTERECTOMY 08/31/06 Hysterectomy, [facility] Family History FAMILY HISTORY Problem Relation Age of Onset - Diabetes Maternal Grandmother - Diabetes Maternal Grandfather - Lipids Maternal Grandfather - Stroke Maternal Grandfather - Coronary Artery Disease Maternal Grandfather - Cataract Maternal Grandfather - Diabetes Paternal Grandmother - Diabetes Paternal Grandfather - Coronary Artery Disease Paternal Grandfather - Thyroid Mother unsure of details - Arthritis Mother fibromyalgia - Blood Disease Mother blood clots, unsure of details (aorta?) - Breast Cancer Maternal Aunt - Lipids Maternal Uncle - Coronary Artery Disease Maternal Uncle - other (ovarian ca) Other maternal cousin Patient Allergies ALLERGIES Allergen Reactions - Asa [Salicylates] Other: See Comments ulcers - Contrast Dye [Iodin* Shortness of Breath - Flagyl [Metronidazo* Shortness of Breath - Ibuprofen GI Upset - Penicillins Rash - Prednisone Other: See Comments makes agitated and mean Current Medications Current Outpatient Medications on File Prior to Visit Medication Sig - amitriptyline (ELAVIL) 50 mg tablet Take 1 tablet by mouth daily at bedtime. - cyclobenzaprine (FLEXERIL) 10 mg tablet Take 1 tablet by m outh three times daily as needed for Muscle Spasm. (Patient not taking: Reported on 11/18/2019 ) No current facility-administered medications on file prior t o visit. Social History Social History Tobacco Use - Smoking status: Former Smoker Packs/day: 0.50 Years: 3.00 Pack years: 1.50 Types: Cigarettes Last attempt to quit: 01/12/2017 Years since quittin.8 - Smokeless tobacco: Never Used - Tobacco comment: Approx. 3 cigarettes daily-1 pack every w [place] Substance Use Topics - Alcohol use: Yes Comment: Occasional - Drug use: No Review of Symptoms REVIEW OF SYSTEMS SEE HPI. EXAM: BP 116/88 (BP Site: Right Arm, BP Position: Sitting, BP Cuff Size: Large Adult) Pulse 76 Temp 37 ?C (98.6 ?F) (Tympanic) Resp 1 8 Wt 89.8 kg (198 lb) LMP 08/10/2006 BMI 37.41 kg/m? General Appearance: Well appearing, alert, in no acute distr ess, well-hydrated, well nourished.. Neck: Supple, no adenopathy; thyroid symmetric, normal size, no bruits. Lungs: lungs clear to auscultation. No wheezing, rhonchi, ra les. Heart: RRR without murmur, gallop, or rubs. No ectopy. Abdomen: Normal abdominal exam, Abdomen soft, non-tender. Eric wel sounds normal. No masses, organomegaly. Extremities: No deformities, edema, skin discoloration, club konstantin or cyanosis. Good capillary refill. . Peripheral Pulses: Normal. Health Maintenance List HIV SCREENING due on 1997 MAMMOGRAM due on 2019 DTAP,TDAP,TD(2 - Td) due on 05/28/2025 ONE PNEUMOVAX PRIOR TO AGE 65 Completed INFLUENZA Completed PAP TESTING Completed HPV TESTING Completed Data reviewed EKG today shows Left axis deviation and incomplete RBBB No comparisons available. ASSESSMENT/PLAN: 1. SOB (shortness of breath) - ICD9: 786.05, ICD10: R06.02 ( primary diagnosis) Unclear etiology. With recent surgery concerned for blood cl ot. EKG shows Incomplete RBBB and left axis deviation. So stat D -dimer and troponin ordered. If positive, will instruct patient to ER for work up. Will also set patient up with cardiology for further evaluat ion - CBC + DIFF - COMP METABOLIC PANEL - D-DIMER - TSH BLD - CONSULT TO CARDIOLOGY - XR CHEST 2V FRONTAL/LAT 2. Chest pain, unspecified type - ICD9: 786.50, ICD10: R07.9 As above - CBC + DIFF - COMP METABOLIC PANEL - D-DIMER - TSH BLD - CONSULT TO CARDIOLOGY - XR CHEST 2V FRONTAL/LAT 3. Incomplete RBBB - ICD9: 426.4, ICD10: I45.10 As #1 - CONSULT TO CARDIOLOGY 4. Fatigue, unspecified type - ICD9: 780.79, ICD10: R53.83 Unclear etiology. - CBC + DIFF - COMP METABOLIC PANEL - D-DIMER - TSH BLD 5. Chronic pain syndrome - ICD9: 338.4, ICD10: G89.4 Patient brought up pain multiple times during visit however, focus was on cardiac symptoms. Patient asked for gabapentin. Discussed that I prefer patien t to see pain specialist for management given chronic symptoms of multiple complexity and locations - headache, back, legs, etc. - CONSULT TO PAIN MGT ISABEL ARIAS PA-C ekg1 on 2019-11-18 EKG1 NAME : SALLY MCGREGOR Normal 11-17-2 020 [facility] PID : [id number] Sina boyd ([id number]) : 1980 Gender : Female Race : Unknown ORD : Procedure Date : Nov 18 2019 12:25:51 Edit Date : Nov 23 2019 16:58:50 Diagnosis:NORMAL SINUS RHYTHM LEFT AXIS DEVIATION INCOMPLETE RIGHT BUNDLE BRANCH BLOCK ABNORMAL ECG Confirmed by RUBEN GALVIN D.O. ([id number]) on 11/23/2019 4:5 8:48 PM Ventricular Rate : 78 BPM Atrial Rate : 78 BPM P-R Interval : 164 ms QRS Duration : 92 ms Q-T Interval : 398 ms QTC Calculation(Bazett) : 453 ms P [place] : 51 degrees R [place] : -43 degrees T [place] : 6 degrees Test Reason : Location : 185 : [facility] Overread By : RUBEN GALVIN D.O. Edited By : RUBEN GALVIN D.O. Referred By : JAY ARIAS) Acquired by : morena MURRIETA [facility]11-[facility]) Normal 11-18-2019 [place] [facility] SALLY MCGREGOR ([id number]) 1980 [facility] Time Provider Department ([id number]) 11/18/19 JAY ARIAS) [facility] During your visit today, we recorded the following informati on about you: Lorenzohanna Vu 11/18/2019 2:14 PM Addendum [facility] calls with results of d-dimer 1.10 ( normal range is 0.27 - 0.49). BROCK notified. ISABEL ARIAS PA-C 11/18/2019 2:28 PM Signed Please let patient know that I need her to go to Er to get e valuated for possible blood clot in lung. MAYA Bowser Ma 11/18/2019 2:31 PM Signed Patient notified and voiced understanding. Valente Bruce Ma Allergies As of Date: 11/18/2019 Noted Allergy Reaction ASA (SALICYLATES) 01/27/2011 14 - Other: See Comments Comments: ulcers CONTRAST DYE (IODINE) 05/17/2008 12 - Shortness of Breath FLAGYL (METRONIDAZOLE HCL) 03/11/2010 12 - Shortness of María th IBUPROFEN 06/18/2016 8 - GI Upset PENICILLINS 12/07/2009 2 - Rash PREDNISONE 06/18/2016 14 - Other: See Comments Comments: makes agitated and mean Date Reviewed: 11/18/2019 Reviewed by: Valente Bruce Ma - Fully Assessed Reason for Visit: elevated D-dimer [Other] Prescriptions as of 11/18/2019 Sig: AMITRIPTYLINE 50 MG TABLET Take 1 tablet by mouth daily * CYCLOBENZAPRINE 10 MG TABLET Take 1 tablet by mouth three * Patient not taking: Reported on 11/18/2019 Problem List As Of Date 11/18/2019 Noted Resolved Routine gynecological examination [Z01.419] 05/17/2008 Class: Chronic More... More... Family history of diabetes mellitus [Z83.3] 05/17/2008 More... Calculus of kidney [N20.0] 05/17/2008 More... Allergic rhinitis, cause unspecified [J30.9] 05/17/2008 More... Migraine without aura [G43.009] 05/17/2008 More... Smoker [F17.200] 05/17/2008 More... Impaired fasting glucose [R73.01] 05/17/2008 More... Benign liver cyst [K76.89] 05/24/2010 Class: Chronic More... Ovarian cyst [N83.209] 07/15/2012 Generalized anxiety disorder [F41.1] 03/31/2016 Reactive depression [F32.9] 03/31/2016 More... Adjustment insomnia [F51.02] 03/31/2016 Encounter for screening for cardiovascular diso*03/31/2016 Bilateral low back pain without sciatica [M54.5]06/18/2016 More... Pain in left hip [M25.552] 06/18/2016 Greater trochanteric bursitis [M70.60] 06/18/2016 Hydronephrosis of left kidney [N13.30] 02/05/2017 Hydroureter on left [N13.4] 02/05/2017 Right facial numbness [R20.0] 02/23/2017 Right upper extremity numbness [R20.0] 02/23/2017 Numbness of right lower extremity [R20.0] 02/23/2017 Weakness of right upper extremity [R29.898] 02/23/2017 Weakness of right lower extremity [R29.898] 02/23/2017 Vision blurred [H53.8] 02/23/2017 Lumbar spine pain [M54.5] 02/23/2017 Cervical spine pain [M54.2] 02/23/2017 Abnormal MRI, lumbar spine [R93.7] 02/23/2017 Hydroureter, left [N13.4] 03/30/2017 Encounter Status:Closed by VALENTE BRUCE MA on 11/18/19 cnov on 2019-11-18 CNOV Office Visit (FAMPWS) [place] 11-18-[address] [place] [address] Debra SALLY MCGREGOR ([id number]) 1980 [facility] Time Provider Department ([id number]) 11/18/19 12:20 PM JAY ARIAS) [facility] During your visit today, we recorded the following informati on about you: Temperature Pulse Respiration Blood pressure 98.6 degrees 76/minute 18/minute 116/88 Weight 89.8 kg ISABEL ARIAS PA-C 11/18/2019 3:32 PM Signed Chief Complaint Patient presents with: Fatigue: Patient is here for fatigue; dizziness; nasuea; weakness; headaches; 2 weeks HPI Sally Mcgregor is a 39 year old female who presents here to day for Above Complaints.. patient scheduled for physical but she does not want to do t his today. Patient states for the past 2 weeks she has not felt well. States she ovarian cyst removed in sep. And just feels like since then she is struggling. States that she is feeling shortness of breath with exertion . Some chest pain/tightness as well. States very fatigued. Having constant headaches and back pain States very weak. Couldn't get off the couch yesterday. Never saw a neurologist for her headaches. C/o of pain in back and legs. Headaches. Etc. States she was given gabapentin while in hospita which helped or symptoms. I cannot find this in her records. She has been to ER multiple times recently. Has not told the m of the chest symptoms. States on Thursday she is seeing urology for kidney stones. Past medical history, appointments, medications, allergies herman singh. Previous Medical History PAST MEDICAL HISTORY Diagnosis Date - Allergic rhinitis, cause unspecified 05/17/2008spring and summer - Benign liver cyst 05/24/2010 CT scan at [facility] 11/2009 and 04/2010 showe 4 mm increase in size . No pain. No elevated LFTs on 03/11/2010. - Calculus of kidney 05/17/[address] Nicolas: Hospitalized age 20, a nd again later -- no procedures so far ([facility], [facility], 1995 [facility]) - Dysmenorrhea - Impaired fasting glucose 05/17/2008 Sugar 104 fasting, 04/21 - MIGRAINE 05/17/2008 Has used imitrex with good response; Keeps Vicodin on hand w hen needed; - Ovarian cyst 07/15/2012 - Smoker 05/17/2008 Started age 26, 1/2 a PPD Previous Surgical History PAST SURGICAL HISTORY Procedure Laterality Date - DANDC, DIAG AND/OR THERAPEUTIC - LIGATE FALLOPIAN TUBE - PAST SURGICAL HISTORY OF uterine ablation - PAST SURGICAL HISTORY OF cyst removal - REMOVAL GALLBLADDER - REMOVAL OF OVARY(S) 2009 Oophorectomy right, still has left - REMOVAL OF OVARY(S) 01/2015 left removed - TOTAL ABDOM HYSTERECTOMY 08/31/06 Hysterectomy, [facility] Family History FAMILY HISTORY Problem Relation Age of Onset - Diabetes Maternal Grandmother - Diabetes Maternal Grandfather - Lipids Maternal Grandfather - Stroke Maternal Grandfather - Coronary Artery Disease Maternal Grandfather - Cataract Maternal Grandfather - Diabetes Paternal Grandmother - Diabetes Paternal Grandfather - Coronary Artery Disease Paternal Grandfather - Thyroid Mother unsure of details - Arthritis Mother fibromyalgia - Blood Disease Mother blood clots, unsure of details (aorta?) - Breast Cancer Maternal Aunt - Lipids Maternal Uncle - Coronary Artery Disease Maternal Uncle - other (ovarian ca) Other maternal cousin Patient Allergies ALLERGIES Allergen Reactions - Asa [Salicylates] Other: See Comments ulcers - Contrast Dye [Iodin* Shortness of Breath - Flagyl [Metronidazo* Shortness of Breath - Ibuprofen GI Upset - Penicillins Rash - Prednisone Other: See Comments makes agitated and mean Current Medications Current Outpatient Medications on File Prior to Visit Medication Sig - amitriptyline (ELAVIL) 50 mg tablet Ta ke 1 tablet by mouth daily at bedtime. - cyclobenzaprine (FLEXERIL) 10 mg tablet Take 1 table t by mouth three times daily as needed for Muscle Spasm. (Patient not taking: Rep orted on 11/18/2019 ) No current facility-administered medications on file prior t o visit. Social History Social History Tobacco Use - Smoking status: Former Smoker Packs/day: 0.50 Years: 3.00 Pack years: 1.50 Types: Cigarettes Last attempt to quit: 01/12/2017 Years since quittin.8 - Smokeless tobacco: Never Used - Tobacco comment: Approx. 3 cigarettes daily-1 pack every w [place] Substance Use Topics - Alcohol use: Yes Comment: Occasional - Drug use: No Review of Symptoms REVIEW OF SYSTEMS SEE HPI. EXAM: BP 116/88 (BP Site: Right Ar m, BP Position: Sitting, BP Cuff Size: Large Adult) Pulse 76 Temp 37 ?C (98.6 ?F) (Tympanic) Resp 18 Wt 89.8 kg (198 lb) LMP 08/10/2006 BMI 37.41 kg/m? General Appearance: Well mini earing, alert, in no acute distress, well-hydrated, well nourished.. Neck: Supple, no adenopathy; thyroid symmetric, normal size, no bruits. Lungs: lungs clear to auscultation. No wheezing, rhonchi, ra les. Heart: RRR without murmur, gallop, or rubs. No ectopy. Abdomen: Normal abdominal exam, Abdomen soft, non-tender. Bowel sounds normal. No masses, organomegaly. Extremities: No deformities, edema, skin discolo ration, clubbing or cyanosis. Good capillary refill. . Peripheral Pulses: Normal. Health Maintenance List HIV SCREENING due on 1997 MAMMOGRAM due on 2019 DTAP,TDAP,TD(2 - Td) due on 05/28/2025 ONE PNEUMOVAX PRIOR TO AGE 65 Completed INFLUENZA Completed PAP TESTING Completed HPV TESTING Completed Data reviewed EKG today shows Left axis deviation and incomplete RBBB No comparisons available. ASSESSMENT/PLAN: 1. SOB (shortness of breath) - ICD9: 786 .05, ICD10: R06.02 (primary diagnosis) Unclear etiology. With recent surgery concerned for blood cl ot. EKG shows Incomplete RBBB an d left axis deviation. So stat D-dimer and troponin ordered. If positive, will instruct patient to ER for work up. Will also set patient up with cardiology for further evaluat ion - CBC + DIFF - COMP METABOLIC PANEL - D-DIMER - TSH BLD - CONSULT TO CARDIOLOGY - XR CHEST 2V FRONTAL/LAT 2. Chest pain, unspecified type - ICD9: 786.50, ICD10: R07.9 As above - CBC + DIFF - COMP METABOLIC PANEL - D-DIMER - TSH BLD - CONSULT TO CARDIOLOGY - XR CHEST 2V FRONTAL/LAT 3. Incomplete RBBB - ICD9: 426.4, ICD10: I45.10 As #1 - CONSULT TO CARDIOLOGY 4. Fatigue, unspecified type - ICD9: 780.79, ICD10: R53.83 Unclear etiology. - CBC + DIFF - COMP METABOLIC PANEL - D-DIMER - TSH BLD 5. Chronic pain syndrome - ICD9: 338.4, ICD10: G89.4 Patient brought up pain multiple times during visit however, focus was on cardiac symptoms. Patient asked for gabapentin. Discussed that I prefer patien t to see pain specialist for management given chronic symptoms of multip le complexity and locations - headache, back, legs, etc. - CONSULT TO PAIN MGT ISABEL ARIAS PA-C Referring Provider: SELF [[id number]] Allergies As of Date: 11/18/2019 Noted Allergy Reaction ASA (SALICYLATES) 01/27/2011 14 - Other: See Comments Comments: ulcers CONTRAST DYE (IODINE) 05/17/2008 12 - Shortness of Breath FLAGYL (METRONIDAZOLE HCL) 03/11/2010 12 - Shortness of María th IBUPROFEN 06/18/2016 8 - GI Upset PENICILLINS 12/07/2009 2 - Rash PREDNISONE 06/18/2016 14 - Other: See Comments Comments: makes agitated and mean Date Reviewed: 11/18/2019 Reviewed by: Valente Bruce Ma - Fully Assessed Reason for Visit: Fatigue [46] Cmt: Patient is here for fatigue; dizziness; nasuea; weakness; headaches; 2 weeks Primary Visit Diagnosis:SOB (shortness of breath) [R06.02] Other Visit Diagnoses:Chest pain, unspecified type [R07.9] Incomplete RBBB [I45.10] Fatigue, unspecified type [R53.83] Chronic pain syndrome [G89.4] Order(s):CONSULT TO PAIN MGT [19991220] Order #: [id number] : 1 FUTURE CBC + DIFF [SQCBCDIF] Order #: [id number] FUTURE COMP METABOLIC PANEL [SQCMP] Order #: [id number] FUTURE D-DIMER [SQDDMER] Order #: [id number] FUTURE TSH BLD [SQTSH] Order #: [id number] FUTURE CONSULT TO CARDIOLOGY [900] Order #: [id number]: 1 FUTUR E XR CHEST 2V FRONTAL/LAT [[id number]] Order #: [id number] FUTURE TROPONIN T [SQTNT] Order #: [id number] FUTURE Prescriptions as of 11/18/2019 Sig: AMITRIPTYLINE 50 MG TABLET Take 1 tablet by mouth daily * CYCLOBENZAPRINE 10 MG TABLET Take 1 tablet by mouth three * Patient not taking: Reported on 11/18/2019 Problem List As Of Date 11/18/2019 Noted Resolved Routine gynecological examination [Z01.419] 05/17/2008 Class: Chronic More... More... Family history of diabetes mellitus [Z83.3] 05/17/2008 More... Calculus of kidney [N20.0] 05/17/2008 More... Allergic rhinitis, cause unspecified [J30.9] 05/17/2008 More... Migraine without aura [G43.009] 05/17/2008 More... Smoker [F17.200] 05/17/2008 More... Impaired fasting glucose [R73.01] 05/17/2008 More... Benign liver cyst [K76.89] 05/24/2010 Class: Chronic More... Ovarian cyst [N83.209] 07/15/2012 Generalized anxiety disorder [F41.1] 03/31/2016 Reactive depression [F32.9] 03/31/2016 More... Adjustment insomnia [F51.02] 03/31/2016 Encounter for screening for cardiovascular diso*03/31/2016 Bilateral low back pain without sciatica [M54.5]06/18/2016 More... Pain in left hip [M25.552] 06/18/2016 Greater trochanteric bursitis [M70.60] 06/18/2016 Hydronephrosis of left kidney [N13.30] 02/05/2017 Hydroureter on left [N13.4] 02/05/2017 Right facial numbness [R20.0] 02/23/2017 Right upper extremity numbness [R20.0] 02/23/2017 Numbness of right lower extremity [R20.0] 02/23/2017 Weakness of right upper extremity [R29.898] 02/23/2017 Weakness of right lower extremity [R29.898] 02/23/2017 Vision blurred [H53.8] 02/23/2017 Lumbar spine pain [M54.5] 02/23/2017 Cervical spine pain [M54.2] 02/23/2017 Abnormal MRI, lumbar spine [R93.7] 02/23/2017 Hydroureter, left [N13.4] 03/30/2017 Encounter Status:Closed by ISABEL WARE on 11/18/19 emergency report on 2019-11-03 EMERGENCY REPORT [facility] Normal 11-03 [facility] EMERGENCY ROOM REPORT ([id number]) NAME ACCOUNT SEX AGE ADMIT DISCHARGE PT MED. RECORD# NUMBER DATE DATE TYPE SAM [id number] F 39 10/31/19 10/31/19 3 SALLY [id number] ROOM: ER DATE OF : 1980 DICTATING PHYSICIAN: Nikhil Lord HISTORY OF PRESENT ILLNESS: The patient came in. The patietn was having abdominal pain. She has had surgery on her abdominal area. She had an infection at the surgical site. She has a n appointment tomorrow with the nurse for Dr. Palacios. She had 2 ovarian cysts removed on October 06 and she was having pain. She said it is a 9 out of 10. She came in by EMS, and presents to the emergency department. It is a constant burning pain. It is cramping. It is better when she lies down. PAST SURGICAL HISTORY: She has had a hysterectomy, kidney st one surgery, cholecystectomy. SOCIAL HISTORY: She does smoke. She denies alcohol use. REVIEW OF SYSTEMS: Ten systems reviewed and negative except as mentioned above. PHYSICAL EXAMINATION: She is afebrile. Blood pressure 121/76 , pulse 94, respirations 18, and pulse o x 97% on room air. Head is normocephalic and atraumatic. Eyes: Pupils are equal, roun d, and reactive to light. Extraocular muscles intact. Nares are patent. Throat has adequ ate oral moisture. Uvula is midline. Neck is supple without petechiae or rash. Heart wit hout murmur. S1 equals S2. No S3 or S4 appreciated. Lungs are clear to auscultat ion bilaterally. No rales, rhonchi, or retractions. Abdomen is soft, nontender, and nondist ended. Skin is warm and dry. She does have a scar. I see no obvious swelling, ecchymosis, or bruising. DIAGNOSTIC DATA: Her chemistries were unremarkable. Li pase was normal. White count was normal at 8000, H&H 12 and 35, and platelet count of 280,000. EMERGENCY DEPARTMENT COURSE AND TREATMENT: I am not really s ure what is causing her pain at this time. She do es not have an acute surgical abdomen. DIAGNOSIS: Abdominal pain, cause not clear. PLAN/DISPOSITION: She has an appointment with her nurse tomorrow at 10 o'clock. I did try contacting Dr. Kyle hernandez through the [facility]. We will dispense her 2 Percocet to go home. I did r eview her OARRS, and she will be discharged in stable condition. Page 1 of 2 SALLY MCGREGOR Emergency Room Report SALLY MCGREGOR : 1980 Dictated By: Nikhil Lord DO 10/31/19 18:03 JOB #: [id number] Transcribed By: am 11/01/19 14:42 Electronically signed by: JC Lord D.O. 11/03/19 07:04 Page 2 of 2 [facility] MCGREG[facility] Emergency Room Report urinalysis on 10-31 Calcium Ox 1+ NORMAL: NONE Normal 10-31-2019 [facility] ([id number]) Comment: Performed By: #### [id number] ## ## [facility],[address] [facility] [address] Amorphous TRACE Normal 10-31-2019 [facility] (44938) Comment: Performed By: #### [id number] ## ## [facility],[address] [facility],[place] [address] Bacteria LM.HPF (Urine sed) TRACE Normal [facility] [#/Area] [facility] ( 80609) Comment: Performed By: #### [id number] ## ## [facility],[address] [facility] [address] Bilirubin [Mass/Vol] NEG NORMAL: NEGATIVE mg/dL Normal [facility] (32745) Comment: Performed By: #### [id number] ## ## [facility],[address] [facility] [address] Blood 25 NORMAL: NEGATIVE Abnormal 10-31-2019 [facility] (47800) Comment: Performed By: #### [id number] ## ## [facility],[address] [facility] [address] Casts LM.LPF (Urine sed) NONE Normal 10-31 [facility] [/Area] [facility] ( 46539) Comment: Performed By: #### [id number] ## ## [facility],[address] [facility] [address] Clarity (U) clear NORMAL: CLEAR Normal 10-31-2019 [facility] (57357) Comment: Performed By: #### [id number] ## ## [facility],[address] [facility] [address] Color (U) yellow NORMAL: YELLOW Normal 10-31-2019 [facility] (98498) Comment: Performed By: #### [id number] ## ## [facility],[address] [facility] [address] Crystals LM Nom (Urine sed) SEE BELOW Normal [facility] ( 51890) Comment: Performed By: #### [id number] ## ## [facility],[address] [place] [address] Epi Cells MANY Normal 10-31-2019 [facility] (26903) Comment: Performed By: #### [id number] ## ## [facility],[address] [place] [address]45[address] Glucose [Mass/Vol] NORM NORMAL: NORMAL Normal 2019 [facility] ( 67976) Comment: Performed By: #### [id number] ## ## [facility],[address] [place] [address]9951 Ketone NEG NORMAL: NEGATIVE Normal 10-31-2019 [facility] (39168) Comment: Performed By: #### [id number] ## ## [facility],[address] [place] [address] 464[address] Microscopic SEE BELOW Normal 10-31-2019 [facility] (33577) Comment: Result Comment: MICROSCOPIC Performed By: #### [id number] ## ## [facility],[address] [place] [address] Mucous NONE Normal 10-31-2019 [facility] (47714) Comment: Performed By: #### [id number] ## ## [facility],[address] [place] [address]186 Nitrite Ql (U) NEG NORMAL: NEGATIVE Normal 10-31-19 20 [facility] ( 80870) Comment: Performed By: #### [id number] ## ## [facility],[address] [place] [address]284 pH (Bld) 5 NORMAL: 5.0-8.0 Normal 10-31-2019 [facility] (49557) Comment: Performed By: #### [id number] ## ## [facility],[address] [place] [address]6971 Protein (U) NEG NORMAL: NEGATIVE mg/dL Normal 10-31-2019 [facility] [Mass/Vol] [facility] (93607) Comment: Performed By: #### [id number] ## ## [facility],[address] [place] [address]346 Rbc 0-5 0-3/hpf Normal 10-31-2019 [facility] (86889) Comment: Performed By: #### [id number] ## ## [facility],[address] [place], [place] [id number] Sp [place] 1.030 NORMAL: 1.010-1.030 Normal 0 [facility] ( 91615) Comment: Performed By: #### [id number] ## ## [facility],[address] [place], [place] [id number] Specimen type Nom (Spec) UNSPECIFIED Normal [facility] ( 27745) Comment: Performed By: #### [id number] ## ## [facility],[address] [place], [place] [id number] Urobilinog NORM NORMAL: NORMAL Normal 10-31-2019 [facility] (83480) Comment: Performed By: #### [id number] ## ## [facility],[address] [place] [address] Wbc 1-5 0-5/hpf Normal 10-31-2019 [facility] (38729) Comment: Performed By: #### [id number] ## ## [facility],[address] [place] [address] WBC (Bld) [#/Vol] 25 NORMAL: NEGATIVE Abnormal 10-31 [facility] ( 98697) Comment: Performed By: #### [id number] ## ## [facility],[address] [place] [address]76 Yeast LM Ql (Urine sed) NONE Normal 2019 [facility] (88740) Comment: Performed By: #### [id number] ## ## [facility],[address] [facility] [address] lipase on 2019-10-15 7 Lipase [Catalytic 40.0 18.0 - 51.0 U/L Normal 10-31-2019 [facility] activity/Vol] [facility] (16128) Comment: Performed By: #### [id number] ## ## [facility],[address] [facility] [address] cmp with egfr on 03-11-16 Age - Reported 39 years Normal 10-31-2019 [facility] (19627) Comment: Performed By: #### [id number] ## ## [facility],[address] [place] [address] Albumin [Mass/Vol] 4.4 3.4 - 4.8 g/dL Normal 10-31-2019 [facility] ( 10729) Comment: Performed By: #### [id number] ## ## [facility],[address] [place] [address] Albumin/Globulin [Mass 1.3 0.9 - 1.6 {ratio} Normal 020 [facility]] [facility] (88347) Comment: Performed By: #### [id number] ## ## [facility],1 [facility] [address] ALK PHOS 79 38 - 126 U/L Normal 10-31-2019 [facility] (41528) Comment: Performed By: #### [id number] ## ## [facility],1 [facility] [address] ALT/SGPT 12 8 - 35 U/L Normal 10-31-2019 [facility] (67752) Comment: Performed By: #### [id number] ## ## [facility],1 [facility] [address] Anion gap [Moles/Vol] 12 10 - 20 mmol/L Normal 10-31-19 [facility] ( 07627) Comment: Performed By: #### [id number] ## ## [facility],[address] [facility] [address] AST/SGOT 13 13 - 39 U/L Normal 10-31-2019 [facility] (73879) Comment: Performed By: #### [id number] ## ## [facility],[address] [facility],[place] [address] B/C RATIO 18 0 - 30 ratio Normal 10-31-2019 [facility] (78629) Comment: Performed By: #### [id number] ## ## [facility],[address] [facility] [address] Bilirubin [Mass/Vol] 0.4 0.0 - 1.5 mg/dl Normal 0 [facility] ( 38640) Comment: Performed By: #### [id number] ## ## [facility],[address] [place] [address] Calcium [Mass/Vol] 9.6 8.6 - 10.2 mg/dl Normal 10-31-2019 [facility] ( 06144) Comment: Performed By: #### [id number] ## ## [facility],[address] [place] [address] Chloride [Moles/Vol] 103 98 - 107 mmol/L Normal 0 [facility] ( 23993) Comment: Performed By: #### [id number] ## ## [facility],[address] [place] [address] CO2 [Moles/Vol] 25.8 21.0 - 31.0 mmol/L Normal 10-31-2019 [facility] ( 53000) Comment: Performed By: #### [id number] ## ## [facility],[address] [place] [address] Creatinine [Mass/Vol] 1.0 0.6 - 1.2 mg/dl Normal 10-31-19 20 [facility] ( 36698) Comment: Performed By: #### [id number] ## ## [facility],[address] [place] [address] GFR/1.73 sq M predicted among Normal 10-31-2019 [facility] non-blacks MDRD (S/P/Bld) [Vol Hospital (86108) rate/Area] Comment: Result Comment: COMPREHENSIV E METABOLIC PANEL Performed By: #### [id number] ## ## [facility],[address] [place] [address]2773 GFR/1.73 sq M >60 60 - 999 mL/min/{1.73_m2} Normal 0 [facility] predicted among [facility] non-blacks MDRD (000 00) (S/P/Bld) [Vol rate/Area] Comment: Result Comment: ACCORDING TO THE NATIONAL KIDNEY DISEASE EDUCATION PROGRAM(NKDE), A NORMAL eGFR IS A VALUE GREATER THAN OR E QUAL TO 60 ML/MIN/1.73 SQ METERS. CHRONIC KIDNEY DISEASE: <60m L/MIN/1.73 SQ METERS KIDNEY FAILURE: <15mL/MIN/1. 73 SQ METERS THIS TEST SHOULD ONLY BE USE D FOR PATIENTS 18 YEARS OF AGE AND OLDER. Performed By: #### [id number] ## ## [facility],[address] [place] [address] Globulin (S) [Mass/Vol] 3.3 1.5 - 3.8 G/DL Normal 2019 [facility] ( 75885) Comment: Performed By: #### [id number] ## ## [facility],[address] [place] [address]4081 Glucose [Mass/Vol] 96 74 - 106 mg/dl Normal 10-31-2019 [facility] ( 10281) Comment: Performed By: #### [id number] ## ## [facility],[address] [place] [address]197 Potassium [Moles/Vol] 3.9 3.5 - 5.1 mmol/L Normal 10-31-19 [facility] ( 86911) Comment: Performed By: #### [id number] ## ## [facility],[address] [place] [address] 74765 Protein [Mass/Vol] 7.7 6.4 - 8.3 g/dl Normal 10-31-2019 [facility] ( 40692) Comment: Performed By: #### [id number] ## ## [facility],[address] [place] [address] 14277 Sodium [Moles/Vol] 137 136 - 145 mmol/l Normal 10-31-2019 [facility] ( 12310) Comment: Performed By: #### [id number] ## ## [facility],[address] [place] [address] 19720 Urea nitrogen [Mass/Vol] 18 6 - 20 mg/dl Normal 10-31 [facility] ( 72038) Comment: Performed By: #### [id number] ## ## [facility],[address] [place] [address] 16021 cbc + diff on 10-31 Basophils (Bld) 0.20 0.00 - 0.10 x10EE3/UL High 10-31-2019 [facility] [#/Vol] [facility] (94198) Comment: Performed By: #### [id number] ## ## [facility],[address] [place] [address] 07890 Basophils/100 WBC (Bld) 2.0 0.0 - 2.0 % Normal 2019 [facility] ( 40126) Comment: Performed By: #### [id number] ## ## [facility],[address] [place] [address] 16272 CBC + DIFF Normal 10-31-2019 [facility] (60462) Comment: Result Comment: CBC-COMPLETE BLOOD COUNT Performed By: #### [id number] ## ## [facility],[address] [place] [address] 97622 Eosinophils (Bld) 0.40 0.00 - 0.50 x10EE3/UL Normal 10-31-2019 [facility] [#/Vol] [facility] (72512) Comment: Performed By: #### [id number] ## ## [facility],[address] [place] [address] 38996 Eosinophils/100 WBC (Bld) 4.8 0.0 - 7.0 % Normal 10-15 [facility] ( 66918) Comment: Performed By: #### [id number] ## ## [facility],[address] [place] [address]22 Erythrocyte distribution 13.7 12.0 - 15.6 % Normal [facility] (RBC) [Ratio] [facility] (78181) Comment: Performed By: #### [id number] ## ## [facility],[address] [place] [address] 17531 Hematocrit (Bld) [Volume 35.8 34.0 - 46.0 % Normal [facility] ( 27694) Comment: Performed By: #### [id number] ## ## [facility],[address] [place] [address] 48275 Hemoglobin (Bld) 12.3 12.0 - 16.0 g/dl Normal 10-31-2019 [facility] [Mass/Vol] [facility] (37901) Comment: Performed By: #### [id number] ## ## [facility],[address] [place] [address] 33844 Lymphocytes (Bld) 2.70 0.80 - 2.80 x10EE3/UL Normal 10-31-2019 [facility] [#/Vol] [facility] (68536) Comment: Performed By: #### [id number] ## ## [facility],[address] [place] [address] 05715 Lymphocytes/100 WBC (Bld) 30.3 20.0 - 45.0 % Normal [facility] ( 92844) Comment: Performed By: #### [id number] ## ## [facility],[address] [place] [address] 25420 MANUAL DIFF N/A Normal 10-31-2019 [facility] (35949) Comment: Performed By: #### [id number] ## ## [facility],[address] [place] [address] 15883 MCH (RBC) [Entitic mass] 30 27 - 33 pg Normal 10-31 [facility] ( 02980) Comment: Performed By: #### [id number] ## ## [facility],[address] [place] [address] 23109 MCHC (RBC) [Mass/Vol] 34 32 - 36 X10 3 Normal 10-31-19 20 [facility] ( 94411) Comment: Performed By: #### [id number] ## ## [facility],[address] [place] [address] 48401 MCV (RBC) [Entitic vol] 88 80 - 99 fl Normal 2019 [facility] ( 80222) Comment: Performed By: #### [id number] ## ## [facility],[address] [place] [address] 03772 Monocytes (Bld) 0.50 0.20 - 1.00 x10EE3/UL Normal 10-31-2019 [facility] [#/Vol] [facility] (09033) Comment: Performed By: #### [id number] ## ## [facility],[address] [place] [address] 42776 MONOS % 5.4 0.0 - 10.0 % Normal 10-31-2019 [facility] (66757) Comment: Performed By: #### [id number] ## ## [facility],[address] [place] [address] 90436 Morphology Adrian (Bld) [Interp] N/A Normal 10-31-2019 [facility] ( 80400) Comment: Performed By: #### [id number] ## ## [facility],[address] [place] [address] 21896 Neutrophils (Bld) 5.10 1.50 - 7.10 x10EE3/UL Normal 10-31-2019 [facility] [#/Vol] [facility] (21961) Comment: Performed By: #### [id number] ## ## [facility],[address] [place] [address]10 Neutrophils/100 WBC (Bld) 57.5 46.0 - 76.0 % Normal [facility] ( 18688) Comment: Performed By: #### [id number] ## ## [facility],[address] [place] [address] 64716 Platelet mean volume 8.9 6.6 - 10.5 fl Normal 10-31-19 20 [facility] (d) [Entitic vol] [facility] (20482) Comment: Result Comment: AUTOMATED DI FFERENTIAL Performed By: #### [id number] ## ## [facility],[address] [place] [address] 49025 Platelets (Bld) 280 150 - 450 x10EE3/UL Normal 10-31-2019 [facility] [#/Vol] [facility] (95626) Comment: Performed By: #### [id number] ## ## [facility],[address] [place] [address] 43466 RBC (Bld) [#/Vol] 4.06 4.10 - 5.30 x 10EE6/UL Low 0 [facility] ( 32192) Comment: Performed By: #### [id number] ## ## [facility],[address] [place] [address] 66033 WBC (Bld) [#/Vol] 8.8 4.5 - 10.8 x 10EE3/UL Normal 10-31-2019 [facility] ( 61258) Comment: Performed By: #### [id number] ## ## [facility] [address] hemogram on 2019-09 Erythrocyte distribution 13.6 11.5-14.5 % Normal 10-08 [facility] width (RBC) [Ratio] (89863) Comment: Performed By: #### BMP3M, MG 3, HEMOG #### [facility] [address] [place], [place] Hematocrit (Bld) [Volume 33.3 35.0-47.0 % Low 10-08 [facility] fraction] (21209) Comment: Performed By: #### BMP3M, MG 3, HEMOG #### [facility] [address] [place], [place] Hemoglobin (Bld) [Mass/Vol] 11.3 11.7-16.0 g/dL Low [facility] (37886) Comment: Performed By: #### BMP3M, MG 3, HEMOG #### [facility] [address] [place], [place] MCH (RBC) [Entitic mass] 30.4 26.0-34.0 pg Normal 10-08 [facility] (61688) Comment: Performed By: #### BMP3M, MG 3, HEMOG #### [facility] [address] [place], [place] MCHC (RBC) [Mass/Vol] 33.9 32.0-36.0 % Normal 10-08-19 [facility] (84125) Comment: Performed By: #### BMP3M, MG 3, HEMOG #### [facility] [address] [place], [place] MCV (RBC) [Entitic vol] 89.9 79.0-98.0 fL Normal 2019 [facility] (12873) Comment: Performed By: #### BMP3M, MG 3, HEMOG #### [place] [address] [place], [place] Platelet mean volume (Bld) 9.5 7.4-10.4 fL Normal [facility] [Entitic vol] (48663 ) Comment: Performed By: #### BMP3M, MG 3, HEMOG #### [facility] [address] [place], [place] Platelets (Bld) [#/Vol] 240 140-440 10*3/uL Normal 2019 [facility] (56964) Comment: Performed By: #### BMP3M, MG 3, HEMOG #### [facility] [address] [place], [place] RBC (Bld) [#/Vol] 3.70 3.80-5.20 10*6/uL Low 10-08-2019 [facility] (61586) Comment: Performed By: #### BMP3M, MG 3, HEMOG #### [place] [address] [place], [place] WBC (Bld) [#/Vol] 18.5 3.6-10.7 10*3/uL High 10-08-2019 [facility] (55539) Comment: Performed By: #### BMP3M, MG 3, HEMOG #### [facility] [address] [place], [place] ts gel on 2019-09-15 4 TS GEL ABO Group: Normal 10-07-2019 [facility] (76631) O Rh, Gel: POS Antibody Screen Gel: NEG Comment: Performed By: #### BMP3M, MG 3, HEMOG #### [facility] [address] [place], [place] surgical pathology on 2019-10-07 Surgical [id number] Normal 10-07-2019 [facility] Pathology [facility] DEPARTMENT OF [facility] System PATHOLOGY AND (55039 ) LABORATORY MEDICINE [address] [place] [address] FINAL SURGICAL PATHOLOGY REPORT NAME: SALLY MCGREGOR : 1980 39 Y Donato CRISTOBAL NO.: [id number] LOCATION: I [id number] PROCEDURE 10/07/2019 DATE: SURGEON: DELON PALACIOS MD RECEIVED 10/07/2019 DATE: ATTENDING: DELON PALACIOS MD REPORT DATE: 10/21/2019 COPIES TO: DIAGNOSIS: PELVIC CYST WALL, EXCISION - PORTION OF OVARIAN TISSUE WITH HYLANIZED CYST WALL AND ADHERENT FIBROADIPOSE TISSUE WITH HEMORRHAGE A ND ORGANIZING FAT NECROSIS. SMT/SMT Signature> S RUBEN DAVENPORT M.D. CLINICAL INFORMATION: Pelvic mass, ovarian remnant SPECIMEN: PELVIC MASS, RESECTION GROSS DESCRIPTION: Right pelvic cyst wall Received in formalin are multiple segments of fibrofatty sof t tissue aggregating to 4 x 4 cm. On transection, the specimen is eduar ssly unremarkable. The specimen is entirely submitted in four vishal settes. (bits ns, 4) JCK/KMS1 Disclaimer: The following statement applies to all immunohistochemistry, in situ hybridization, molecular studi es, and immunofluorescence testing. The use of one or more reagents in the above tests is regula arnie as an analyte specific reagent (ASR). These tests were developed a nd their performance characteristics determined by the clinical labor atories of [facility]. They have not been cleared by the [facility] od and Drug Administration (FDA). The FDA has determined that such clear ance or approval is not necessary. All the above immunostains were performed on paraffin embedd ed tissue. Appropriate positive and negative controls (where applicable ) were run in parallel with the patient's specimen; these controls show ed expected staining pattern, with acceptable intensity of staining. Immunohistochemical assays have not been validated on decalc ified tissues. Results should be interpreted with caution given [facility] raised possibility of false negativity on decalcified specimens. Professional Performing Location: [address] [address]. DEPARTMENT OF PATHOLOGY AND LABORATORY MEDICINE [place], [place] [address] op note on Op Note PATIENT: SALLY MCGREGOR - [facility] ([id number]) ADMISSION DATE: 10/07/2019 SURGERY DATE: 10/07/2019 DATE OF : 1980 AGE: 39 ADMITTING PHYSICIAN: Delon Palacios MD ATTENDING PHYSICIAN: Delon Palacios MD DICTATING PHYSICIAN: Delon Palacios MD OPERATIVE RECORD Procedure: REMOVAL OF INTRA-ABDOMINAL TUMOR, LESS THAN 5 CM. Preoperative Diagnosis: Right lower quadrant mass status pos t MICHELINE-BSO. Postoperative Diagnosis: Right lower quadrant mass status po st MICHELINE-BSO. Anesthesia: General. Description of Procedure: A 39-year-old lady with severe pel shyanne pain, had a 5.9 cm multiseptated mass in the pelvis. The patient i s status post right and left removal of the tubes and ovaries. She wa s having extreme pain and requested removal of this mass. The patient was identified and brought to the operating room. After administ ration of general anesthesia, Yi catheter was placed. Exam under an esthesia did show resolution of the mass from a prior exam done in [facility] office. She underwent abdominal prep and drape after Yi catheter was placed. Time-out was performed. Antibiotics were given. The compression stockings on and running. Using a knife, a lower midline incision was made, sharply dividing down through the skin, subcutaneous tissue, and the fascia. The fascia was opened u sing Bovie cautery. The peritoneal cavity was opened using Metzen lay scissors. Omental adhesions to the intra-abdominal wall were sharply lysed and the Henrique wound retractor was then placed. The Eric okwalter retractor was also used to help move the bowel up out of the pelvis. The small bowel came out very nicely. Exam of the pelvis rev ealed no gross ovarian tubal or ovarian tissue noted. The right pelvi c sidewall was examined and there was an approximately 3 to 4 cm cystic lesion in between the rectum and the pelvic sidewall. This corresponded to the mass that had been seen on imaging studi es. The pelvic sidewall was opened, allowing the ureter to be identi fied. The mass was then dissected off the right pelvic sidewall and of f the ureter using both sharp dissection as well as small burst of electrocautery. The ureter was identified throughout its cou rse in the pelvis and the surgery and no evidence of any damage was performed. The cystic lesion was removed in its entirety usi ng Bovie cautery and sharp dissection. Hemostasis was noted. The area was copiously irrigated. No other remaining tissue or masses wer e seen in the pelvis. All sponges, needles, and instruments was correc t to the surgeon x2. The fascia was then closed using a running #1 PD S in a loop mass closure system, followed by subcutaneous 0-Vicryl interrupted sutures in subcutaneous tissue followed by runni ng 3-0 Monocryl. EBL was about 100 cc. She was taken to the recover y room in stable condition with a minimal EBL. [employer] Job ID: [id number] Delon Palacios MD DOD:10/07/2019 10:46 A /semaj DOT:10/07/2019 12:51 P Job Number: [id number] Document Number: [id number] cc: Delon Palacios MD [employer] [facility] [address] Lui Harris MD [address] [place] [address], [address] [facility] [address] follicle stim hormone on 2019-09-15 Follicle Stim Hormone 6.5 m[IU]/mL Normal 09-15-19 [facility] [email or web address] [facility] (59886) Comment: Result Comment: Females: Follicular Phase ...... 2.3- 12.6 Mid-cycle Peak ........ 5.2- 17.5 Luteal Phase .......... 1.7- 12.9 Post-menopausal ....... 12.7 -132.2 Males: 0.7-10.8 Performed By: #### FSH3 #### [facility] [address] [place] [address] us pelvis ta/tv on 2019-09-11 US Pelvis TA/TV Patient Name: SALLY MCGREGOR 09-11-2019 [facility] ([id number] ) Ultrasound Exam Date/Time 09/11/2019 14:17:16 EST Exam US Pelvis TA/TV Ordering Physician MARLA ARNDT REBECCA E. Accession Number [id number] CPT4 Codes 84972 (US Pelvis TA/TV), 63146 (US Transvaginal) Reason For Exam right ovarian mass seen on CT, s/p hysterectomy Report EXAMINATION: Transabdominal and transvaginal pelvic ultrasound. COMPARISON: CT scan of 09/11/2019 from [facility]. REASON FOR STUDY: Right ovarian mass; prior hysterectomy and bilateral oophore ctomy. TECHNIQUE: Real-time orozco scale and supplemental color doppler imaging was performed both abdominally and transvaginally. FINDINGS: A multiseptated cystic mass measuring 5.9 cm x 3.2 cm x 3.4 cm is observed in the right adnexum. The uterus and bilateral ovar ies are not identified consistent with prior hysterectomy and bilate ral nephrectomies. No free pelvic fluid is evident. 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 Report Dictated on Final Dictated: 09/11/2019 2:18 pm Dictating Physician: MD BREWER B NELSON Signed Date and Time: 09/11/2019 2:29 pm Signed by: MD BREWER B NELSON Transcribed Date and Time: 09/11/2019 2:18 hemogram w/ autodiff on 2019-09-05 Abs Baso Cnt 0.0 0.0-0.2 10*3/uL Normal 09-05-2019 [facility] (45772) Comment: Performed By: #### HEMDF, BM P3 #### [facility] [address] [place] [address] Abs Neutrophile Cnt 3.9 1.8-7.0 10*3/uL Normal 09-05-2019 [facility] (74840) Comment: Performed By: #### HEMDF, BM P3 #### [facility] [address] [place] [address] Basophils/100 WBC (Bld) 0.3 0.0-2.0 % Normal 2018 [facility] (40302) Comment: Performed By: #### HEMDF, BM P3 #### [place] [address] [place] [address] Eosinophils (Bld) [#/Vol] 0.2 0.0-0.5 10*3/uL Normal 08-15 [facility] (66404) Comment: Performed By: #### HEMDF, BM P3 #### [facility] [place] [address] Eosinophils/100 WBC (Bld) 3.3 1.0-6.0 % Normal 08-15 [facility] (00441) Comment: Performed By: #### HEMDF, BM P3 #### [place] [address] [place] [address] Erythrocyte distribution 12.9 11.5-14.5 % Normal 09-05 [facility] width (RBC) [Ratio] (96537) Comment: Performed By: #### HEMDF, BM P3 #### [place] [address] [place] [address] Granulocytes/100 WBC (Bld) 55.5 40.0-80.0 % Normal [facility] (24687) Comment: Performed By: #### HEMDF, BM P3 #### [place] [address] [place] [address] Hematocrit (Bld) [Volume 34.8 35.0-47.0 % Low 09-05 [facility] fraction] (83480) Comment: Performed By: #### HEMDF, BM P3 #### [facility] [address] [place] [address] Hemoglobin (Bld) [Mass/Vol] 11.5 11.7-16.0 g/dL Low [facility] (46844) Comment: Performed By: #### HEMDF, BM P3 #### [place] [address] [place], [place] Lymphocytes (Bld) [#/Vol] 2.5 1.0-4.3 10*3/uL Normal 08-15 [facility] (97974) Comment: Performed By: #### HEMDF, BM P3 #### [place] [address] [place], [place] Lymphocytes/100 WBC (Bld) 35.4 20.0-40.0 % Normal 08-15 [facility] (77758) Comment: Performed By: #### HEMDF, BM P3 #### [place] [address] [place], [place] MCH (RBC) [Entitic mass] 29.9 26.0-34.0 pg Normal 09-05 [facility] (44056) Comment: Performed By: #### HEMDF, BM P3 #### [place] [address] [place], [place] MCHC (RBC) [Mass/Vol] 33.0 32.0-36.0 % Normal 09-05-20 19 [facility] (87488) Comment: Performed By: #### HEMDF, BM P3 #### [place] [address] [place], [place] MCV (RBC) [Entitic vol] 90.7 79.0-98.0 fL Normal 2018 [facility] (17819) Comment: Performed By: #### HEMDF, BM P3 #### [place] [address] [place], [place] Monocytes (Bld) [#/Vol] 0.4 0.0-0.8 10*3/uL Normal 2018 [facility] (48432) Comment: Performed By: #### HEMDF, BM P3 #### [facility] [employer] [facility] [address] [place] [address] Monocytes/100 WBC (Bld) 5.5 2.0-10.0 % Normal 2018 [facility] (33382) Comment: Performed By: #### HEMDF, BM P3 #### [facility] [employer] [place] [address] [place], [place] Platelet mean volume (Bld) 9.8 7.4-10.4 fL Normal [facility] [Entitic vol] (99807 ) Comment: Performed By: #### HEMDF, BM P3 #### [place] [address] [place], [place] Platelets (Bld) [#/Vol] 204 140-440 10*3/uL Normal 2018 [facility] (61015) Comment: Performed By: #### HEMDF, BM P3 #### [place] [address] [place], [place] RBC (Bld) [#/Vol] 3.83 3.80-5.20 10*6/uL Normal 09-05-2019 [facility] (03504) Comment: Performed By: #### HEMDF, BM P3 #### [place] [address] [place], [place] WBC (Bld) [#/Vol] 7.0 3.6-10.7 10*3/uL Normal 09-05-2019 [facility] (29477) Comment: Performed By: #### HEMDF, BM P3 #### [place] [address] [place], [place] cr urography retrograde w/ + w/o kub on 2019-09-05 CR Urography Patient Name: SALLY MCGREGOR Normal 09-05-2019 [facility] Retrograde w/ + w/o System (78459) KUB Diagnostic Radiology Exam Date/Time 09/05/2019 08:12:21 EST Exam CR Urography Retrograde w/ + w/o KUB Ordering Physician MAUREEN STONE Accession Number [id number] CPT4 Codes 03754 () Reason For Exam Renal stone fluro c arm c and p Report A total of 1 minute and 11 seconds of fluoro time was used in the Operating Suite for this procedure. No other report will be generated. Final Signed Date and Time: 09/26/2019 2:02 pm Signed by: DINKEY DRIVER, SYSTEM Transcribed Date and Time: 09/26/2019 1:19 Transcribed By:KRISTAN basic metabolic panel on 2019-09-05 Calcium [Mass/Vol] 8.7 8.4-10.4 mg/dL Normal 09-05-2019 [facility] (54484) Comment: Performed By: #### HEMDF, BM P3 #### [facility] [address] [place] [address] Anion gap [Moles/Vol] 7 Normal 09-05-20 [facility] (21617) Comment: Performed By: #### HEMDF, BM P3 #### [facility] [employer] [facility] [address] [place] [address] CO2 [Moles/Vol] 24 22-30 mmol/L Normal 09-05-2019 [facility] (25955) Comment: Performed By: #### HEMDF, BM P3 #### [facility] [address] [place] [address] Creatinine [Mass/Vol] 0.79 0.52-1.25 mg/dL Normal 09-05-20 [facility] (18857) Comment: Performed By: #### HEMDF, BM P3 #### [facility] [employer] [facility] [address] [place] [address] GFR/1.73 sq M > 60.0 >60 mL/min/{1.73_m2} Normal 9 [facility] predicted among Syst em (24123) blacks MDRD (S/P/Bld) [Vol rate/Area] Comment: Performed By: #### HEMDF, BM P3 #### [facility] [employer] [facility] [address] [place] [address] GFR/1.73 sq M > 60.0 >60 mL/min/{1.73_m2} Normal 9 [facility] [email or web address] predicted among Syst em (40666) non-blacks MDRD (S/P/Bld) [Vol rate/Area] Comment: Result Comment: Source- MDRD equation with creatinine calibration to IDMS(NKDEP) eGFR not recommended for dylon g dose adjustment Performed By: #### HEMDF, BM P3 #### [employer] [place] [address] [place], [place] Glucose [Mass/Vol] 85 70-100 mg/dL Normal 09-05-2019 [facility] (86155) Comment: Performed By: #### HEMDF, BM P3 #### [employer] [place] [address] [place], [place] Urea nitrogen [Mass/Vol] 5 7-20 mg/dL Low 09-05 [facility] (07432) Comment: Performed By: #### HEMDF, BM P3 #### [employer] [place] [address] [place], [place] Chloride [Moles/Vol] 108 98-107 mmol/L High 9 [facility] [employer] [facility] (33792) Comment: Performed By: #### HEMDF, BM P3 #### [email or web address] [place] [address] [place], [place] Potassium [Moles/Vol] 4.0 3.5-5.1 mmol/L Normal 09-05-20 19 [facility] [email or web address] [facility] (81950) Comment: Performed By: #### HEMDF, BM P3 #### [employer] [place] [address] [place], [place] Sodium [Moles/Vol] 140 135-145 mmol/L Normal 09-05-2019 [facility] (43922) Comment: Performed By: #### HEMDF, BM P3 #### [employer] [place] [address] [place], [place] magnesium on 2018-09-22 Magnesium [Mass/Vol] 1.9 1.6-2.3 mg/dL Normal 9 [facility] [email or web address] [facility] (78414) Comment: Performed By: #### BMP3M, MG 3, HEMOG #### [facility] [address] [place], [place] hemogram on 2019-08 Erythrocyte distribution 13.2 11.5-14.5 % Normal 09-04 [facility] width (RBC) [Ratio] (89901) Comment: Performed By: #### BMP3M, MG 3, HEMOG #### [facility] [address] [place], [place] Hematocrit (Bld) [Volume 36.7 35.0-47.0 % Normal 09-04 [facility] fraction] (54705) Comment: Performed By: #### BMP3M, MG 3, HEMOG #### [facility] [address] [place], [place] Hemoglobin (Bld) 12.3 11.7-16.0 g/dL Normal 09-04-2019 [facility] [Mass/Vol] (18853) Comment: Performed By: #### BMP3M, MG 3, HEMOG #### [facility] [address] [place], [place] MCH (RBC) [Entitic mass] 30.6 26.0-34.0 pg Normal 09-04 [facility] (57703) Comment: Performed By: #### BMP3M, MG 3, HEMOG #### [place] [address] [place], [place] MCHC (RBC) [Mass/Vol] 33.5 32.0-36.0 % Normal 09-04-20 19 [facility] (83343) Comment: Performed By: #### BMP3M, MG 3, HEMOG #### [facility] [address] [place], [place] MCV (RBC) [Entitic vol] 91.3 79.0-98.0 fL Normal 2018 [facility] (50650) Comment: Performed By: #### BMP3M, MG 3, HEMOG #### [facility] [address] [place], [place] Platelet mean volume (Bld) 10.4 7.4-10.4 fL Normal [facility] [Entitic vol] (24294 ) Comment: Performed By: #### BMP3M, MG 3, HEMOG #### [facility] [address] [place], [place] Platelets (Bld) [#/Vol] 211 140-440 10*3/uL Normal 2018 [facility] (74301) Comment: Performed By: #### BMP3M, MG 3, HEMOG #### [facility] [address] [place], [place] RBC (Bld) [#/Vol] 4.02 3.80-5.20 10*6/uL Normal 09-04-2019 [facility] (54159) Comment: Performed By: #### BMP3M, MG 3, HEMOG #### [place] [address] [place], [place] WBC (Bld) [#/Vol] 7.1 3.6-10.7 10*3/uL Normal 09-04-2019 [facility] (43182) Comment: Performed By: #### BMP3M, MG 3, HEMOG #### [place] [address] [place], [place] culture urine on 01-09-22 CULTURE URINE CULTURE URINE --> Status: F Normal 09-04-2019 [facility] No growth (<1,000 CFU/ml). (40149) Comment: Order Comment: Specimen Sour ce Comment:Urine, clean catch Performed By: #### C/UR #### [place] [address] [place], [place] basic metabolic panel on 2019-09-04 Potassium [Moles/Vol] 3.5 3.5-5.1 mmol/L Normal 09-04-20 [facility] (11596) Comment: Performed By: #### BMP3M, MG 3, HEMOG #### [facility] [address] [place], [place] Anion gap [Moles/Vol] 9 Normal 09-04-20 [facility] (85171) Comment: Performed By: #### BMP3M, MG 3, HEMOG #### [facility] [address] [place], [place] Calcium [Mass/Vol] 8.8 8.4-10.4 mg/dL Normal 09-04-2019 [facility] (05269) Comment: Performed By: #### BMP3M, MG 3, HEMOG #### [place] [address] [place], [place] CO2 [Moles/Vol] 26 22-30 mmol/L Normal 09-04-2019 [facility] (67130) Comment: Performed By: #### BMP3M, MG 3, HEMOG #### [place] [address] [place], [place] Glucose [Mass/Vol] 76 70-100 mg/dL Normal 09-04-2019 [facility] (91230) Comment: Performed By: #### BMP3M, MG 3, HEMOG #### [place] [address] [place] Urea nitrogen [Mass/Vol] 10 7-20 mg/dL Normal 09-04 [facility] (26296) Comment: Performed By: #### BMP3M, MG 3, HEMOG #### [place] [address] [place] Creatinine [Mass/Vol] 0.81 0.52-1.25 mg/dL Normal 09-04-20 19 [facility] (01251) Comment: Performed By: #### BMP3M, MG 3, HEMOG #### [place] [address] [place], [place] GFR/1.73 sq M > 60.0 >60 mL/min/{1.73_m2} Normal 9 [facility] predicted among Syst em (30270) blacks MDRD (S/P/Bld) [Vol rate/Area] Comment: Performed By: #### BMP3M, MG 3, HEMOG #### [place] [address] [place] GFR/1.73 sq M > 60.0 >60 mL/min/{1.73_m2} Normal 9 [facility] predicted among Syst em (23510) non-blacks MDRD (S/P/Bld) [Vol rate/Area] Comment: Result Comment: Source- MDRD equation with creatinine calibration to IDMS(NKDEP) eGFR not recommended for dylon g dose adjustment Performed By: #### BMP3M, MG 3, HEMOG #### [facility] [address] [place], [place] Sodium [Moles/Vol] 138 135-145 mmol/L Normal 09-04-2019 [facility] (00201) Comment: Performed By: #### BMP3M, MG 3, HEMOG #### [facility] [address] [place], [place] Chloride [Moles/Vol] 103 98-107 mmol/L Normal 9 [facility] (27183) Comment: Performed By: #### BMP3M, MG 3, HEMOG #### [facility] [employer] [facility] [address] [place], [place] cr abdomen ap on 01-09-21 CR Abdomen AP Patient Name: SALLY MCGREGOR 09-03-2019 [facility] ([id number] ) Diagnostic Radiology Exam Date/Time 09/03/2019 17:35:36 EST Exam CR Abdomen AP Ordering Physician MD RACH,CONCHIS J Accession Number [id number] CPT4 Codes 02151 () Reason For Exam nephrolithiasis Report ABDOMEN, Single View: INDICATION: Nephrolithiasis COMPARISON: None. Supine images of the abdomen were obtained at 1733 hours. A moderate amount of feces is noted throughout the colon. There are no obvious findings to suggest pneumoperitoneum. No abnormal calcificat ions are identified. There is no appreciable mass effect. Review of t he osseous structures demonstrate no gross abnormality. IMPRESSION: Unremarkable abdomen. Report Dictated on Final Dictated: 09/03/2019 8:46 pm Dictating Physician: DO WANG ALFRED Signed Date and Time: 09/03/2019 8:47 pm Signed by: DO WANG ALFRED Transcribed Date and Time: 09/03/2019 8:46 cnco on 2019-08-03 CNCO Letter Text Normal 08-03-2019 [facility] ([id number]) xr sacrum/coccyx 3v ap/lat on 2019-07-21 XR SACRUM/COCCYX 3V * * *Final Report* * * Normal 07-21-2019 Kimberly AP/LAT DATE OF EXAM: Jul 21 2019 11:38AM [facility] WOX 5246 - XR SACRUM/COCCYX 3V AP/LAT / 4 Kimberly PROCEDURE REASON: multiple diagnoses ([id number]) * * * * Physician Interpretation * * * * EXAM: LUMBAR SPINE, 3 VIEWS; SACRUM AND COCCYX, 3 VIEWS CLINICAL: 38-year-old female with lumbar pain status post fa ll TECHNIQUE: AP, lateral coned down lateral ; AP pelvis, inlet view and lateral view the sacrum and coccyx COMPARISON: 06/18/2016 lumbar spine. RESULTS: Counting reference: Anatomic Variant: None. L4-5 is considered the level of the iliac crest and assume there are 5 lumbar-t ype vertebrae. Mild curve of lumbar spine convex right centered at L2. Moderate disc space narrowing at L4/L5. Osteophytes anterior ly at L1-L4. Facet joints are maintained. Surgical clips in right upper q uadrant. AP pelvis, sacrum and coccyx: Hip joint space are maintained . Sacroiliac joints are normal in appearance. Sacrum and coccyx are intac t. No fracture. IMPRESSION: DEGENERATIVE DISC DISEASE AT L4/L5 UNCHANGED. NO ACUTE BONY ABNORMALITY IN THE PELVIS SEGMENT COCCYX. Parts Department Manager: [facility] Transcribe Date/Time: Jul 21 2019 4:01P Dictated by : ESTEE CUMMINGS MD This examination was interpreted and the report reviewed and electronically signed by: ESTEE CUMMINGS MD on Jul 21 2019 4:06PM EST [id number] xr lumbar 3v ap/lat/l5-s1 on 2019-07-21 XR LUMBAR 3V * * *Final Report* * * Normal Mata AP/LAT/L5-S1 DATE OF EXAM: Jul 21 2019 11:38AM [facility] WOX 5228 - XR LUMBAR 3V AP/LAT/L5-S1 / Kimberly PROCEDURE REASON: multiple diagnoses ([id number]) * * * * Physician Interpretation * * * * EXAM: LUMBAR SPINE, 3 VIEWS; SACRUM AND COCCYX, 3 VIEWS CLINICAL: 38-year-old female with lumbar pain status post fa ll TECHNIQUE: AP, lateral coned down lateral ; AP pelvis, inlet view and lateral view the sacrum and coccyx COMPARISON: 06/18/2016 lumbar spine. RESULTS: Counting reference: Anatomic Variant: None. L4-5 is considered the level of the iliac crest and assume there are 5 lumbar-t ype vertebrae. Mild curve of lumbar spine convex right centered at L2. Moderate disc space narrowing at L4/L5. Osteophytes anterior ly at L1-L4. Facet joints are maintained. Surgical clips in right upper q uadrant. AP pelvis, sacrum and coccyx: Hip joint space are maintained . Sacroiliac joints are normal in appearance. Sacrum and coccyx are intac t. No fracture. IMPRESSION: DEGENERATIVE DISC DISEASE AT L4/L5 UNCHANGED. NO ACUTE BONY ABNORMALITY IN THE PELVIS SEGMENT COCCYX. Parts Department [facility] Transcribe Date/Time: Jul 21 2019 4:01P Dictated by : ESTEE CUMMINSG MD This examination was interpreted and the report reviewed and electronically signed by: ESTEE CUMMINGS MD on Jul 21 2019 4:06PM EST [id number] tsh on 2019-07-21 TSH Qn 1.510 0.270-4.200 uU/mL Normal 07-21-2019 [facility] ([id number]) Comment: Result Comment: If the patie nt is , TSH reference range varies by gestational period: First Trimester (weeks 9-12) : 0.180-2.990 mcIU/mL Second Trimester: 0.110-3.98 0 mcIU/mL Third Trimester: 0.480-4.710 mcIU/mL Leander Bro, et al. A Practica l Approach for the Verifications and Determination of Site- and Trimester-Specific Reference Intervals for Thyroid Function tests in . Thyroid, 2019:29:3:412-420. Cesario Shannon, et al. 2017 Guide lines of the [place] [employer] for the Diagnosis and Management of Thyroid Disease during and the . Thyroid, 2017:27:3:315-389. Performed By: #### HBA1C, TS Julieth, MORIAH #### [facility] [address] [place] [id number] progress on 2019-07 PROGRESS HNO ID: [id number] Normal 07-21-2019 [facility] Author: Elena Stauffer Kimberly ([id number]) Service: ? Author Type: ? Type: Progress Notes Filed: 07/21/2019 11:38 AM Note Text: Radiology Service Progress Note PATIENT NAME: Sally Mcgregor DATE OF SERVICE: July 21, 2019 TIME: 11:23 AM PATIENT IDENTITY VERIFICATION COMPLETED USING TWO (2) METHOD S: Name and Date of confirmed by patient verbally. PATIENT GENDER DATA: Female. status: : No status: NO. PATIENT RELEVANT IMPLANT DATA REVIEWED: Not Applicable RADIOLOGY DEPARTMENT: General X-ray: Exam(s) Completed: Spin e X-Ray(s): Lumbar AP / LAT / L5-S1 and Sacrum/Coccyx PERIPHERAL IV DATA: Not applicable SIGNED BY: Elena Stauffer July 21, 2019 11:23 AM PROGRESS HNO ID: [id number] Normal 07-21-2019 [facility] Author: Randi Arias Kimberly ([id number]) Service: ? Author Type: Physician Taximeter Repairer Type: Progress Notes Filed: 07/21/2019 11:26 AM Note Text: Chief Complaint Patient presents with: Recheck: Patient is here for follow up on headaches Fall: Patient fell in shower 2 weeks; still having lower radha k pain HPI Sally Mcgregor is a 38 year old female who presents here to day for Above Complaints.. Patient continues to have nearly daily headaches. Not much i mprovement. No significant side effects from amitriptyline with exception o f drowsiness. Headaches are entire head. Starts in forehead and radiates b ack. Has had some blurry vision at times but denies spots in visi on. Has appointment with an eye dr next week. Hasn't been wearing he r glasses. Takes claritin for allergies. Cant take NSAIDs but has also been taking tylenol. Fell in shower a few weeks ago. Back hit against shower wall . Still painful. Has gone to chiropractor. Last 4 Encounter Wt Readings: Date: Wt: 07/21/2019 83.5 kg (194 lb) 06/10/2019 85.7 kg (189 lb) 04/22/2019 83.9 kg (185 lb) 02/23/2018 78.9 kg (174 lb) Past medical history, appointments, medications, allergies herman singh. Previous Medical History PAST MEDICAL HISTORY Diagnosis Date - Allergic rhinitis, cause unspecified 05/17/2008 Spring and summer - Benign liver cyst 05/24/2010 CT scan at [facility] 11/2009 and 04/2010 showe 4 mm increase in size . No pain. No elevated LFTs on 03/11/2010. - Calculus of kidney 05/17/[address] Nicolas: Hospitalized age 20, and again later -- no procedures so far [facility] - Dysmenorrhea - Impaired fasting glucose 05/17/2008 Sugar 104 fasting, 04/21 - MIGRAINE 05/17/2008 Has used imitrex with good response; Keeps Vicodin on hand w hen needed; - Ovarian cyst 07/15/2012 - Smoker 05/17/2008 Started age 26, 1/2 a PPD Previous Surgical History PAST SURGICAL HISTORY Procedure Laterality Date - DANDC, DIAG AND/OR THERAPEUTIC - LIGATE FALLOPIAN TUBE - PAST SURGICAL HISTORY OF uterine ablation - PAST SURGICAL HISTORY OF cyst removal - REMOVAL GALLBLADDER - REMOVAL OF OVARY(S) 2009 Oophorectomy right, still has left - REMOVAL OF OVARY(S) 01/2015 left removed - TOTAL ABDOM HYSTERECTOMY 08/31/06 Hysterectomy, [facility] Family History FAMILY HISTORY Problem Relation Age of Onset - Diabetes Maternal Grandmother - Diabetes Maternal Grandfather - Lipids Maternal Grandfather - Stroke Maternal Grandfather - Coronary Artery Disease Maternal Grandfather - Cataract Maternal Grandfather - Diabetes Paternal Grandmother - Diabetes Paternal Grandfather - Coronary Artery Disease Paternal Grandfather - Thyroid Mother unsure of details - Arthritis Mother fibromyalgia - Blood Disease Mother blood clots, unsure of details (aorta?) - Breast Cancer Maternal Aunt - Lipids Maternal Uncle - Coronary Artery Disease Maternal Uncle - other (ovarian ca) Other maternal cousin Patient Allergies ALLERGIES Allergen Reactions - Asa [Salicylates] Other: See Comments ulcers - Contrast Dye [Iodin* Shortness of Breath - Flagyl [Metronidazo* Shortness of Breath - Ibuprofen GI Upset - Penicillins Rash - Prednisone Other: See Comments makes agitated and mean Current Medications Current Outpatient Medications on File Prior to Visit: amitriptyline (ELAVIL) 25 mg tablet Take 1 tablet by mouth d aily at bedtime. No current facility-administered medications on file prior t o visit. Social History Social History Socioeconomic History Marital status: Spouse name: Not on file Number of children: 2 Years of education: 12 Highest education level: Not on file Occupational History Not on file Social Needs Financial resource strain: Not on file Food insecurity: Worry: Not on file Inability: Not on file Transportation needs: Medical: Not on file Non-medical: Not on file Tobacco Use Smoking status: Former Smoker Packs/day: 0.50 Years: 3.00 Pack years: 1.5 Types: Cigarettes Quit date: 01/12/2017 Years since quittin.5 Smokeless tobacco: Never Used Tobacco comment: Approx. 3 cigarettes daily-1 pack every wee k Substance and Sexual Activity Alcohol use: Yes Comment: Occasional Drug use: No Sexual activity: Yes Partners: Male control/protection: Surgical Comment: [facility] Lifestyle Physical activity: Days per week: Not on file Minutes per session: Not on file Stress: Not on file Relationships Social connections: Talks on phone: Not on file Gets together: Not on file Attends jain service: Not on file Active member of club or organization: Not on file Attends meetings of clubs or organizations: Not on file Relationship status: Not on file Intimate partner violence: Fear of current or ex partner: Not on file Emotionally abused: Not on file Physically abused: Not on file Forced sexual activity: Not on file Other Topics Concerns: Service: Not Asked Blood Transfusions: Not Asked Caffeine Concern: No daily caffeine Occupational Exposure: Not Asked Hobby Hazards: Not Asked Sleep Concern: Not Asked Stress Concern: Not Asked Weight Concern: Not Asked Special Diet: No Back Care: Not Asked Exercise: Yes try to Bike Helmet: Not Asked Seat Belt: Not Asked Self-Exams: Not Asked Social History Narrative Not on file Review of Symptoms REVIEW OF SYSTEMS see hpi. all other noncontributory EXAM: BP 110/64 (BP Site: Right Arm, BP Position: Sitting, BP Cuff Size: Large Adult) Pulse 80 Resp 16 Wt 83.5 kg (184 lb) LMP 07/16 BMI 34.77 kg/m? General Appearance: Well appearing, alert, in no acute distr ess, well-hydrated, well nourished.. Head: Normocephalic, no masses, lesions, or abnormalities, t enderness to palp throughout and in occipital region. Eyes: Anicteric sclera. Pupils are equally round and reactiv e to light. Extraocular movements are intact. . Musculoskeletal: SLR pos for pain only. Mild tenderness to p alp of low back and spine. FROM with pain. Neck with mild tenderness to palp. NVI. Health Maintenance List DTAP,TDAP,TD(2 - Td) due on 05/28/2025 ONE PNEUMOVAX PRIOR TO AGE 65 Completed INFLUENZA Completed PAP TESTING Completed HPV TESTING Completed Data reviewed ASSESSMENT/PLAN: 1. Migraine without aura and without status migrainosus, not intractable - ICD9: 346.10, ICD10: G43.009 (primary diagnosis) Will increase elavil to 50mg. Unclear etiology as not classical migraine symptoms. Agree w ith opto consult given blurred vision at time. - CONSULT TO NEUROLOGY 2. Fall, initial encounter - ICD9: E888.9, ICD10: W19.XXXA Check xrays. Cant use flexeril prn. - XR LUMBAR GENERAL 3V AP/LAT/L5-S1 - XR SACRUM/COCCYX 3V AP/LAT 3. Lumbar back pain - ICD9: 724.2, ICD10: M54.5 As above - XR LUMBAR GENERAL 3V AP/LAT/L5-S1 - XR SACRUM/COCCYX 3V AP/LAT 4. Screening for diabetes mellitus - ICD9: V77.1, ICD10: Z13 .1 - HGB A1C 5. Weight gain - ICD9: 783.1, ICD10: R63.5 Will check - TSH BLD 6. Encounter for lipid screening for cardiovascular disease - ICD9: V77.91, V81.2, ICD10: Z13.220, Z13.6 - LIPID PANEL, NONFASTING ISABEL ARIAS PA-C lipid panel, nonfast on 2019-07-21 Cholesterol [Mass/Vol] 206 <200 mg/dL High 019 [facility] ([id number]) Comment: Result Comment: <200 mg/dL, Desirable 200-239 mg/dL, Borderline hi gh >239 mg/dL, High Performed By: #### HBA1C, TS H, LIPNF #### [facility] [address] [place], [place] [address] Cholesterol in 2.39 <2.54 mg/dL Normal 07-21-2019 [facility] LDL/Cholesterol in HDL [Mass Kimberly ([id number]) ratio] Comment: Result Comment: Reference: 1. National Cholesterol Educ ation Program ATP III Guideline At-A-Glance Quick Desk Reference: National Heart, Lung, and Blood [place]. National Institutes of Health. 2001: NIH Publication No. 01-3305. 2. An International Atherosc lerosis Society position paper: global recommendations for the management of dyslipidemia: executive summary, Atherosclerosis. 2014: 232(2):410-413. Performed By: #### HBA1C, TS H, LIPNF #### [facility] [address] [place], [place] [address] Cholesterol.total/Cholesterol in 4.04 <5.10 mg/dL Normal 07-21-2019 Kimberly HDL [Mass ratio] Cli nghia Kimberly ([id number]) Comment: Performed By: #### HBA1C, TS H, LIPNF #### [facility] [address] [place], [place] [address] HDL Cholesterol, NF 51 >39 mg/dL Normal 07-21-2019 [facility] ([id number]) Comment: Result Comment: 40-59 mg/dL, Acceptable >59 mg/dL, High: Negative ri sk factor for coronary heart disease <40 mg/dL, Low: Positive ris k factor for coronary heart disease Performed By: #### HBA1C, TS H, LIPNF #### [facility] [address] [place], [place] [address] LDL Cholesterol, NF 122 <100 mg/dL High 07-21-2019 [facility] ([id number]) Comment: Result Comment: <100 mg/dL, Optimal 100-129 mg/dL, Near optimal/ above optimal 130-159 mg/dL, Borderline hi gh 160-189 mg/dL, High >189 mg/dL, Very high Secondary prevention optimal LDL Cholesterol levels are recommended to be < 70 mg/dL Performed By: #### HBA1C, TS H, LIPNF #### [facility] [address] [place] [address] Non HDL Chol, NF 155 <130 mg/dL High 07-21-[address] [facility] ([id number]) Comment: Result Comment: <130 mg/dL, Optimal 130-159 mg/dL, Near optimal/ above optimal 160-189 mg/dL, Borderline hi gh 190-219 mg/dL, High >219 mg/dL, Very high Secondary prevention optimal non HDL Cholesterol levels are recommended to be < 100 mg/dL Performed By: #### HBA1C, TS H, LIPNF #### [facility] [address] [place] [address] Triglycerides, NF 163 <150 mg/dL High 07-21-2019 C [facility] ([id number]) Comment: Result Comment: <150 mg/dL, Normal 150-199 mg/dL, Borderline hi gh 200-499 mg/dL, High >499 mg/dL, Very high Performed By: #### HBA1C, TS H, LIPNF #### [facility] [address] [place] [address] VLDL Cholesterol, NF 33 <30 mg/dL High 9 [facility] ([id number]) Comment: Performed By: #### HBA1C, TS H, LIPNF #### [facility] [address] [place] [address] hemoglobin a1c on HbA1c (Bld) [Mass fraction] 5.3 4.3-5.6 % Normal [facility] ([id number]) Comment: Result Comment: [place] [employer] guidelines indicate that patients with HgbA1c in the range 5.7-6.4% are at increased risk for development of diabetes, and intervention by lifestyle modification may be beneficial. HgbA1c greater o r equal to 6.5% is considered diagnostic of diabetes. Performed By: #### HBA1C, TS H, LIPNF #### [facility] [address] [place] [address] HbA1c (Bld) [Mass fraction] 105 mg/dL Normal [facility] ([id number]) Comment: Result Comment: eAG: (Jaimiea arnie average glucose) is a calculated value from HgbA1c and is advertising sales representative of the average blood glucose level in the last 2-3 month period. Performed By: #### HBA1C, TS H, LIPNF #### [facility] [address] [place], [place] [id number] cnov on 2019-07-21 CNOV Office Visit (FAMPWS) Normal 07-21-20 Kimberly [facility] SALLY MCGREGOR ([id number]) 1980 [facility] Date Time Provider Department ([id number]) 07/21/19 10:40 AM JAY ARIAS) FAMPWS During your visit today, we recorded the following informati on about you: Pulse Respiration Blood pressure Weight 80/minute 16/minute 110/64 88 kg ISABEL ARIAS PA-C 07/21/2019 11:26 AM Signed Chief Complaint Patient presents with: Recheck: Patient is here for follow up on headaches Fall: Patient fell in shower 2 weeks; still having lower radha k pain HPI Sally Mcgregor is a 38 year old female who presents here to day for Above Complaints.. Patient continues to have nearly daily headaches. Not much i mprovement. No significant side effects from amitriptyline with exception o f drowsiness. Headaches are entire head. Starts in forehead and radiates b ack. Has had some blurry vision a t times but denies spots in vision. Has appointment with an eye dr next week. Hasn't been wearing her glasses. Takes claritin for allergies. Cant take NSAIDs but has also been taking tylenol. Fell in shower a few weeks ago. Back hit against showe r wall. Still painful. Has gone to chiropractor. Last 4 Encounter Wt Readings: Date: Wt: 07/21/2019 83.5 kg (194 lb) 06/10/2019 85.7 kg (189 lb) 04/22/2019 83.9 kg (185 lb) 02/23/2018 78.9 kg (174 lb) Past medical history, appointments, medications, allergies r francisco. Previous Medical History PAST MEDICAL HISTORY Diagnosis Date - Allergic rhinitis, cause unspecified 05/17/2008spring and summer - Benign liver cyst 05/24/2010 CT scan at [facility] 11/2009 and 04/2010 showe 4 mm increase in size . No pain. No elevated LFTs on 03/11/2010. - Calculus of kidney 05/17/[address] Nicolas: Hospitalized age 20, a nd again later -- no procedures so far ([facility], [facility], 1995 [facility]) - Dysmenorrhea - Impaired fasting glucose 05/17/2008 Sugar 104 fasting, 04/21 - MIGRAINE 05/17/2008 Has used imitrex with good response; Keeps Vicodin on hand w hen needed; - Ovarian cyst 07/15/2012 - Smoker 05/17/2008 Started age 26, 1/2 a PPD Previous Surgical History PAST SURGICAL HISTORY Procedure Laterality Date - DANDC, DIAG AND/OR THERAPEUTIC - LIGATE FALLOPIAN TUBE - PAST SURGICAL HISTORY OF uterine ablation - PAST SURGICAL HISTORY OF cyst removal - REMOVAL GALLBLADDER - REMOVAL OF OVARY(S) 2009 Oophorectomy right, still has left - REMOVAL OF OVARY(S) 01/2015 left removed - TOTAL ABDOM HYSTERECTOMY 08/31/06 Hysterectomy, [facility] Family History FAMILY HISTORY Problem Relation Age of Onset - Diabetes Maternal Grandmother - Diabetes Maternal Grandfather - Lipids Maternal Grandfather - Stroke Maternal Grandfather - Coronary Artery Disease Maternal Grandfather - Cataract Maternal Grandfather - Diabetes Paternal Grandmother - Diabetes Paternal Grandfather - Coronary Artery Disease Paternal Grandfather - Thyroid Mother unsure of details - Arthritis Mother fibromyalgia - Blood Disease Mother blood clots, unsure of details (aorta?) - Breast Cancer Maternal Aunt - Lipids Maternal Uncle - Coronary Artery Disease Maternal Uncle - other (ovarian ca) Other maternal cousin Patient Allergies ALLERGIES Allergen Reactions - Asa [Salicylates] Other: See Comments ulcers - Contrast Dye [Iodin* Shortness of Breath - Flagyl [Metronidazo* Shortness of Breath - Ibuprofen GI Upset - Penicillins Rash - Prednisone Other: See Comments makes agitated and mean Current Medications Current Outpatient Medications on File Prior to Visit: amitriptyline (ELAVIL) 25 mg tablet Take 1 tablet by m outh daily at bedtime. No current facility-administered medications on file prior t o visit. Social History Social History Socioeconomic History Marital status: Spouse name: Not on file Number of children: 2 Years of education: 12 Highest education level: Not on file Occupational History Not on file Social Needs Financial resource strain: Not on file Food insecurity: Worry: Not on file Inability: Not on file Transportation needs: Medical: Not on file Non-medical: Not on file Tobacco Use Smoking status: Former Smoker Packs/day: 0.50 Years: 3.00 Pack years: 1.5 Types: Cigarettes Quit date: 01/12/2017 Years since quittin.5 Smokeless tobacco: Never Used Tobacco comment: Approx. 3 cigarettes daily-1 pack every wee k Substance and Sexual Activity Alcohol use: Yes Comment: Occasional Drug use: No Sexual activity: Yes Partners: Male control/protection: Surgical Comment: [facility] Lifestyle Physical activity: Days per week: Not on file Minutes per session: Not on file Stress: Not on file Relationships Social connections: Talks on phone: Not on file Gets together: Not on file Attends jain service: Not on file Active member of club or organization: Not on file Attends meetings of clubs or organizations: Not on file Relationship status: Not on file Intimate partner violence: Fear of current or ex partner: Not on file Emotionally abused: Not on file Physically abused: Not on file Forced sexual activity: Not on file Other Topics Concerns: Service: Not Asked Blood Transfusions: Not Asked Caffeine Concern: No daily caffeine Occupational Exposure: Not Asked Hobby Hazards: Not Asked Sleep Concern: Not Asked Stress Concern: Not Asked Weight Concern: Not Asked Special Diet: No Back Care: Not Asked Exercise: Yes try to Bike Helmet: Not Asked Seat Belt: Not Asked Self-Exams: Not Asked Social History Narrative Not on file Review of Symptoms REVIEW OF SYSTEMS see hpi. all other noncontributory EXAM: BP 110/64 (BP Site: Right Ar m, BP Position: Sitting, BP Cuff Size: Large Adult) Pulse 80 Resp 16 Wt 83.5 kg (184 lb) LMP 08/10/2006 BMI 34.77 kg/m? General Appearance: Well mini earing, alert, in no acute distress, well-hydrated, well nourished.. Head: Normocephalic, no masses, lesions, or abno rmalities, tenderness to palp throughout and in occipital region. Eyes: Anicteric sclera. Pupils are equally round and reactiv e to light. Extraocular movements are intact. . Musculoskeletal: SLR pos for pain only. Mild tenderness to palp of low back and spine. FROM with pain. Neck with mild tenderness to palp. NV I. Health Maintenance List DTAP,TDAP,TD(2 - Td) due on 05/28/2025 ONE PNEUMOVAX PRIOR TO AGE 65 Completed INFLUENZA Completed PAP TESTING Completed HPV TESTING Completed Data reviewed ASSESSMENT/PLAN: 1. Migraine without aura and without status migrainosus, not intractable - ICD9: 346.10, ICD10: G43.009 (primary diagnosis) Will increase elavil to 50mg. Unclear etiology as not classical migraine symptoms. A gree with opto consult given blurred vision at time. - CONSULT TO NEUROLOGY 2. Fall, initial encounter - ICD9: E888.9, ICD10: W19.XXXA Check xrays. Cant use flexeril prn. - XR LUMBAR GENERAL 3V AP/LAT/L5-S1 - XR SACRUM/COCCYX 3V AP/LAT 3. Lumbar back pain - ICD9: 724.2, ICD10: M54.5 As above - XR LUMBAR GENERAL 3V AP/LAT/L5-S1 - XR SACRUM/COCCYX 3V AP/LAT 4. Screening for diabetes mellitus - ICD9: V77.1, ICD10: Z13 .1 - HGB A1C 5. Weight gain - ICD9: 783.1, ICD10: R63.5 Will check - TSH BLD 6. Encounter for lipid screening for cardiovascular diseas e - ICD9: V77.91, V81.2, ICD10: Z13.220, Z13.6 - LIPID PANEL, NONFASTING ISABEL ARIAS PA-C Referring Provider: SELF [[id number]] Allergies As of Date: 07/21/2019 Noted Allergy Reaction ASA (SALICYLATES) 01/27/2011 14 - Other: See Comments Comments: ulcers CONTRAST DYE (IODINE) 05/17/2008 12 - Shortness of Breath FLAGYL (METRONIDAZOLE HCL) 03/11/2010 12 - Shortness of María th IBUPROFEN 06/18/2016 8 - GI Upset PENICILLINS 12/07/2009 2 - Rash PREDNISONE 06/18/2016 14 - Other: See Comments Comments: makes agitated and mean Date Reviewed: 07/21/2019 Reviewed by: Valente Bruce Ma - Fully Assessed Reason for Visit: Recheck [92] Cmt: Patient is here for follow up on headaches Fall [218] Cmt: Patient fell in shower 2 weeks; still having lower back pain Primary Visit Diagnosis:Migraine without aura an d without status migrainosus, not intractable [G43.009] Other Visit Diagnoses:Fall, initial encounter [W19.XXXA] Lumbar back pain [M54.5] Screening for diabetes mellitus [Z13.1] Weight gain [R63.5] Encounter for lipid screening for cardiovascular disease [Z13.220, Z13.6] Order(s):CONSULT TO NEUROLOGY [9019] Order #: [id number]: 1 FUTURE amitriptyline (ELAVIL) 50 mg tabletTake 1 tablet by mouth da federico at bedtime.Disp: 30 tabletRfl: 5 XR LUMBAR GENERAL 3V AP/LAT/L5-S1 [[id number]] Order #: [id number] FUTURE XR SACRUM/COCCYX 3V AP/LAT [[id number]] Order #: [id number] FUT URE TSH BLD [SQTSH] Order #: [id number] FUTURE HGB A1C [IXDZU1X] Order #: [id number] FUTURE LIPID PANEL, NONFASTING [SQLIPNF] Order #: [id number] FUTURE cyclobenzaprine (FLEXERIL) 10 mg tabletTake 1 tablet by mout h three times daily as needed for Muscle Spasm.Disp: 30 tabletRfl: 0 Prescriptions as of 07/21/2019 Sig: AMITRIPTYLINE 50 MG TABLET Take 1 tablet by mouth daily * CYCLOBENZAPRINE 10 MG TABLET Take 1 tablet by mouth three * Problem List As Of Date 07/21/2019 Noted Resolved Routine gynecological examination [Z01.419] INVALID FOR* Class: Chronic More... More... Family history of diabetes mellitus [Z83.3] INVALID FOR* More... Calculus of kidney [N20.0] INVALID FOR* More... Allergic rhinitis, cause unspecified [J30.9] INVALID FOR* More... Migraine without aura [G43.009] INVALID FOR* More... Smoker [F17.200] INVALID FOR* More... Impaired fasting glucose [R73.01] INVALID FOR* More... Benign liver cyst [K76.89] INVALID FOR* Class: Chronic More... Ovarian cyst [N83.209] INVALID FOR* Generalized anxiety disorder [F41.1] INVALID FOR* Reactive depression [F32.9] INVALID FOR* More... Adjustment insomnia [F51.02] INVALID FOR* Encounter for screening for cardiovascular diso*INVALID FOR* Bilateral low back pain without sciatica [M54.5]INVALID FOR* More... Pain in left hip [M25.552] INVALID FOR* Greater trochanteric bursitis [M70.60] INVALID FOR* Hydronephrosis of left kidney [N13.30] INVALID FOR* Hydroureter on left [N13.4] INVALID FOR* Right facial numbness [R20.0] INVALID FOR* Right upper extremity numbness [R20.0] INVALID FOR* Numbness of right lower extremity [R20.0] INVALID FOR* Weakness of right upper extremity [R29.898] INVALID FOR* Weakness of right lower extremity [R29.898] INVALID FOR* Vision blurred [H53.8] INVALID FOR* Lumbar spine pain [M54.5] INVALID FOR* Cervical spine pain [M54.2] INVALID FOR* Abnormal MRI, lumbar spine [R93.7] INVALID FOR* Hydroureter, left [N13.4] INVALID FOR* Prescriptions ordered this encounter Disp Refills Start End AMITRIPTYLINE 50 MG TABLET 30 t* 5 07/21/2019 Route: ORAL Sig: Take 1 tablet by mouth daily at bedtime. CYCLOBENZAPRINE 10 MG TABLET 30 t* 0 07/21/2019 Route: ORAL Sig: Take 1 tablet by mouth three times daily as needed for Muscle Spasm. Medications Discontinued During This Encounter amitriptyline (ELAVIL) 25 mg tablet 30 t* 2 06/10/2019 019 Route: ORAL Sig: Take 1 tablet by mouth daily at bedtime. Disc: Adjust Sig - Block E-Cancel Disposition: Return in about 4 weeks (around 08/18/2019). Follow-up and Disposition History Recorded Encounter Status:Closed by ISABEL WARE on 07/21/19 Vital Signs Vital Sign Description Value / Unit Date Location The following section is limited to 5 en tries per type and includes entries from the following time range: 20200508 - 3. Body Temperature 97.81 [degF] 05-17-2020 [facility] ([id number]) Body Temperature 97.9 [degF] 05-08-2020 [facility] ([id number]) Body weight 89.9 kg 05-17-2020 [facility] ([id number]) Body weight 93.89 kg 05-08-2020 [facility] ([id number]) BP Diastolic 82 mm[Hg] 05-17-2020 [facility] ([id number]) BP Diastolic 76 mm[Hg] 05-08-2020 [facility] ([id number]) BP Systolic 124 mm[Hg] 05-17-2020 [facility] ([id number]) BP Systolic 121 mm[Hg] 05-08-2020 [facility] ([id number]) Height 154.9 cm 05-08-2020 [facility] ([id number]) Pulse (Heart Rate) 86 /min [id number]ulse (Heart Rate) 91 /min 05-08-2020 [facility] nghia ([id number]) Pulse Oximetry 97 % 05-08-2020 [facility] ([id number]) Respiratory Rate 16 /min [id number] Respiratory Rate 18 /min 05-08-[facility] ([id number]) Encounters Date Type Reason Provider Location 06-25-2020 - Chart abstracting Postoperative pain Noaman Tanesha [facility] 06-25-2020 [facility] Comment: Refill Request 05-23-2020 - E-mail encounter Isabel Romero) [facility] 05-23-2020 from carer Hugo 03-24-2020 - Emergency Migraine, CORBY [place] 03-24-2020 department unspecified, not [facility] patient visit intractableCORBY ([id number]) without status [facility] migrainosus CORBY M OLVIN ARIAS UNKNOWN PROVIDER 01-21-2020 - Emergency ANA Johnston [facility]21[facility]VARADO ([id number]) JENNIFER ARIAS UNKNOWN PROVIDER 11-25-2019 - Emergency ANA Johnston 11-25-2019 department [facility] al patient visit ANA ALVARADO ([id number]) JENNIFER ARIAS UNKNOWN PROVIDER 10-31-2019 - Emergency Lower abdominal [facility]IL [facility]31-[facility] NIKHIL Shannon ([id number]) JEAN ARIAS UNKNOWN PROVIDER 04-26-2020 - Letter encounter Johnny Mccall [facility] 04-26-2020 [facility] 05-14-2020 - Orders Only Liver cyst [facility]cc[facility]: [facility] (Primary Dx) 05-11-2020 - Orders Only Idiopathic acute Johnny Mccall [facility] [place] 05-11-2020 pancreatitis [facility] Comment: Idiopathic acute pancreatiti s, unspecified complication status (Primary Dx) surgical referral 05-10-2020 - Orders Only Idiopathic acute Johnny Mccall [facility] [place] 05-10-2020 pancreatitis [facility] Comment: Idiopathic acute pancreatiti s, unspecified complication status (Primary Dx) 06-05-2020 - Patient encounter Cyst of pancreas Mala [facility] 06-05-2020 procedure [facility] Comment: Pancreatic cyst (Primary Dx) 05-30-2020 - Patient [facility] Provider Adolfo lyle 05-30-2020 encounter procedure 05-24-2020 - Patient Abdominal Johnny Mccall Gastroenterolog y 05-24-2020 encounter bloating [facility] procedure Comment: Bloating (Primary Dx); Nausea and vomiting, intract ability of vomiting not specified, unspecified vomiting type; Diarrhea, unspecified type 05-23-2020 Patient encounter Postoperative pain Isabel Romero) [facility] procedure Arias [place] Comment: RE: Appointment Request 05-17-2020 - Patient encounter Shoulder pain Xr [facility] [place] Radiol[facility] 05-17-2020 procedure Kenia (Jaki) Bartolo Bernard (Jaki) Bartolo Comment: Radiology XR Acute pain of right shoulder (Primary Dx) 04-30-2020 - Patient encounter Generalized abdominal Us [facility] adiology 04-30-2020 procedure pain Mob 1 Comment: Radiology US 05-30-2020 Results Only [facility] Provider [facility] Department 05-08-2020 - Subsequent Generalized Johnny Mccall Ambulatory 05-08-2020 hospital visit by abdominal pain [facility] Surgery physician Comment: Generalized abdominal pain [ R10.84] 06-05-2020 - Telemedicine Mala Almendarez [facility] 06-05-2020 consultation with patient 05-24-2020 - Telemedicine Johnny Mccall [facility] 05-24-2020 consultation with Hannah patient 06-15-2020 - Telephone encounter Local infection Taty (Clean Room Technician [facility] 06-15-2020 of wound [employer]) [facility] SURGERY DEPARTMENT Comment: Multiple Concerns 05-31-2020 - Telephone encounter Johnny Mccall Gastro[facility] [place] 05-31-2020 [facility] Comment: Patient Update 05-18-2020 - Telephone Shoulder pain Marcelino Mejia [facility] 05-18-2020 encounter [place] Comment: Referral Request 05-07-2020 - Telephone encounter Johnny Mccall [facility] [place] 05-07-2020 [facility] Comment: Patient Update 05-01-2020 - Telephone encounter Johnny Mccall [facility] [place] 05-01-2020 [facility] Comment: Results 04-30-2020 - Telephone encounter Johnny Mccall [facility] [place] 04-30-2020 [facility] Comment: Returning Patient's Call 04-27-2020 - 04-27-2020 Telephone encounter Marcelino Mejia [facility] [place] Comment: Medication request Procedures Procedure Name Date Provider Location Antibody screen 06-11-2020 [facility] ([id number]) Comment: Performed By: #### CBCD1 ### # [place] [id number] CARDIAC 05-30-2020 [facility] Provider [facility] ([id number]) Radex shoulder complete minimum 2 05-17-2020 - Kenia (Jaki) [facility] views 05-17-2020 [facility] ([id number]) SURGICAL PATHOLOGY 05-08-2020 [facility] Mccall [facility] ([id number]) Colonoscopy flx dx w/collj spec 05-08-2020 [facility] Provider [facility] when pfrmd ([id number]) Esophagogastroduodenoscopy 05-08-2020 [facility] Provider [facility] transoral diagnostic ([id number]) Us abdominal real time w/image 04-30-2020 - Johnny Mccall [facility] limited 04-30-2020 [facility] ([id number]) Urinalysis 10-31-2019 [facility] l ([id number]) Comment: Result Comment: URINALYSIS Performed By: #### [id number] ## ## [facility],[address] [place] [address] Plan of Treatment Plan Description Date Location DTAP,TDAP,TD (2 - Td) DTAP,TDAP,TD (2 - Td) 05-28-2025 - [facility] 05-28-2025 ([id number]) INFLUENZA (#1) INFLUENZA (#1) 2020 - [facility] 05-15-2020 ([id number]) MAMMOGRAM MAMMOGRAM 2019 - [facility] 2019 ([id number]) COLONOSCOPY COLONOSCOPY 1997 - [facility] 1997 ([id number]) HEPATITIS C SCREENING HEPATITIS C SCREENING 1997 - [facility] 1997 ([id number]) HIV SCREENING HIV SCREENING 1997 - [facility] 1997 ([id number]) COLONOSCOPY - COLONOSCOPY - DIAGNOSTIC 05-08-2020 [facility] DIAGNOSTIC Endoscopy Routine ([id number]) Generalized abdominal pain Loose stools Dyspepsia Gastroesophageal reflux disease, esophagitis presence not specified Other dysphagia History of acute pancreatitis Bloating Nausea and vomiting, intractability of vomiting not specified, unspecified vomiting type 1 Occurrences starting 05/08/2020 until 05/08/2020 Comment: 1 Occurrences starting 05/08 until 05/08/2020 EGD EUS EGD EUS Endoscopy Routine Idiopathic 05-10-2021 [facility] ([id number]) acute pancreatitis, unspecified complication status 1 Occurrences starting 05/10/2020 until 05/10/2021 Comment: 1 Occurrences starting 05/10 until 05/10/2021 EGD EGD Endoscopy Routine Generalized abdominal 04-15 [facility] ([id number]) pain Loose stools Dyspepsia Gastroesophageal reflux disease, esophagitis presence not specified Other dysphagia History of acute pancreatitis Bloating Nausea and vomiting, intractability of vomiting not specified, unspecified vomiting type 1 Occurrences starting 05/08/2020 until 05/08/2020 Comment: 1 Occurrences starting 05/08 until 05/08/2020 MRI ABDOMEN WO/W IVCON MRI ABDOMEN WO/W IVCON 07-05-2021 Cl [facility] ([id number]) Radiology Routine Pancreatic cyst 1 Occurrences starting 06/05/2020 until 07/05/2021 Comment: 1 Occurrences starting 06/05 until 07/05/2021 PRE-PROCEDURE & PRE-PROCEDURE & 05-10-2021 [facility] PRE-OPERATIVE COVID PRE-OPERATIVE COVID ([id number]) Microbiology Routine Idiopathic acute pancreatitis, unspecified complication status 1 Occurrences starting 05/10/2020 until 05/10/2021 Comment: 1 Occurrences starting 05/10 until 05/10/2021 SURGICAL PATHOLOGY SURGICAL PATHOLOGY Lab Routine [facility] ([id number]) 05/08/2020 1:17 PM EDT no information [facility] ([id number]) Immunizations Vaccine Notes Status Date Location Influenza Seasonal influenza, seasonal, (completed) 05-11-2020 - [facility] Inj Age 3+ injectable 05-11-2020 ([id number]) Influenza Seasonal influenza, seasonal, (completed) 05-31-2019 - [facility] Inj Age 3+ injectable 05-31-2019 ([id number]) Pneumovax pneumococcal (completed) 05-19-2017 - [facility] c polysaccharide vaccine, 05-19-2017 (441 95) 23 valent Tdap (Age 7+) tetanus toxoid, reduced (completed) 05-28-2015 - [facility] diphtheria toxoid, and 05-28-2015 (4419 5) acellular pertussis vaccine, adsorbed Payers Payer Name Policy Number Location [facility] [id number] [facility] OUTPATIENT ([id number]) [place] [employer] [id number] [facility] (32 793) [phone] [id number] [facility] ([id number]) [id number] [facility] (32403) [id number] [facility] ([id number]) [id number] [facility] (64016) The following information is from the original human readable contentNo Payer Records FoundNo Payer Records FoundNo Payer Records FoundNo Payer Records FoundNo Payer Records FoundNo Payer Records FoundNo Payer Records FoundNo Payer Records FoundNo Payer Records Found Social History Type Social History Date Location Description History of tobacco use Current smoker 01-12-2017 [facility] ([id number]) Alcohol Comment Occasional 11-26-2010 - [facility] 11-26-2010 ([id number]) History of tobacco use Cigarette Smoker 01-12-2017 [facility] (61462) Cigarettes smoked 05-17-2020 - [facility] current (pack per day) 06-08-2020 (79840) - Reported Tobacco use and Never used 05-17-2020 - [facility] exposure 06-08-2020 (61806) Alcohol intake Current drinker of 05-17-2020 - [facility] alcohol (finding) 06-08-2020 (26998) Tobacco Comment Approx. 3 cigarettes 03-10-2011 - [facility] daily-1 pack every week 03-10-2011 (52699) Tobacco smoking status Former smoker 05-17-2020 - [facility] NHIS 06-08-2020 (82951) Sex Assigned At Not on file [facility] (92996) Exposure to SARS-CoV-2 Not sure [facility] (event) (70115) History SDOH Financial 5 06-08-2020 - [facility] 06-08-2020 (26727) History SDOH Food Worry 1 06-08-2020 - [facility] 06-08-2020 ([id number]) History SDOH Transport 2 06-08-2020 - [facility] Med 06-08-2020 (45595) Exposure to SARS-CoV-2 Yes [facility] (event) ([id number]) The following information is from the original human readable contentNo Social History Records FoundNo Social History Records FoundNo Social History Records FoundNo Social History Records FoundNo Social History Records FoundNo Social History Records FoundNo Social History Records FoundNo Social History Records FoundNo Social History Records FoundNo Social History Records FoundNo Social History Records Found History of Present Illness Kylee Davenport Tech (Rt) - 05/17/2020 12:08 PM EDT Radiology Service Progress Note PATIENT NAME: Sally Mcgregor DATE OF SERVICE: May 17, 2020 TIME: 12:08 PM PATIENT IDENTITY VERIFICATION COMPLETED USING TWO (2) IDENTIFIERS: Name and Date of confirmed by patient verbally. FALL SCREENING: Has the patient had 2 falls in the last year or 1 fall with injury or currently using an Ambulatory Assistive Device (Walker, Cane, Wheelchair, Crutches, etc.)? No PATIENT GENDER DATA: Female. status: : No status: NO. PATIENT RELEVANT IMPLANT DATA REVIEWED: Yes RADIOLOGY DEPARTMENT: General X-ray: Exam(s) Completed: Upper Extremity X- Ray(s): Shoulder, AP / TRUE AP / AXILLARY right : PERIPHERAL IV DATA: Not applicable SIGNED BY: RT Olivier May 17, 2020 12:08 PM documented in this encounterKathy Trevino Tech (Tech) - 04/30/2020 4:13 PM EDT Radiology Service Progress Note PATIENT NAME: Sally Mcgregor DATE OF SERVICE: April 30, 2020 TIME: 4:13 PM PATIENT IDENTITY VERIFICATION COMPLETED USING TWO (2) IDENTIFIERS: Name and Date of confirmed by patient verbally. FALL SCREENING: Has the patient had 2 falls in the last year or 1 fall with injury or currently using an Ambulatory Assistive Device (Walker, Cane, Wheelchair, Crutches, etc.)? No PATIENT GENDER DATA: Female. status: : No status: NO. PATIENT RELEVANT IMPLANT DATA REVIEWED: Not Applicable RADIOLOGY DEPARTMENT: Ultrasound PERIPHERAL IV DATA: Not applicable SIGNED BY: Vianey Ramos April 30, 2020 4:13 PM documented in this encounterSJohnny mendoza - 05/10/2020 2:48 PM EDTCalled patient. Discussed findings of EGD/colonoscopy. Discussed findings of US showing large bilobar liver cysts but large one which is complex in the right lobe for which I'm referring her to Dr Mala Almendarez. Patient reported having the liver cysts for a long time and had attempted drainage several years agobut it was unsuccessful. I mentioned that complex cysts needs to be evaluated further. 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 Johnny Winn MD documented in this encounterKenia Mcfarland (Sales Representative [employer]) - 05/17/2020 11:57 AM EDT Visit Date: May 17, 2020 Patient Name: Ms.Nichole Jeana Mcgregor Date of : 1980 MRN/E #: [id number] Chief Complaint Patient presents with: right shoulder pain: fell in shoulder yesterday History of present illness Sally Mcgregor is a 39 year old female. Reports she fell in the shower yesterday and landed on her right shoulder. Has tried acetaminophen and ice for pain with little relief. She states she cannot take NSAIDs due to her reflux and heat makes the pain worse. She reports having a hx of shoulder issues. The history is provided by the patient. No medical concierge was used. PAIN EVALUATION 05/17/2020 1153 Pain Level: 10 Pain Location: Shoulder-Right Description: Burning;Sharp Duration Amount of Time: 1 Duration Units: Days Frequency: Continuous Intervention: Medication ALLERGIES Allergen Reactions ? Penicillins Rash ? Cephalexin Itching ? Chlorhexidine Rash Skin rash ? Asa [Salicylates] Other: See Comments ulcers ? Contrast Dye [Iodin* Shortness of Breath ? Ibuprofen GI Upset ? Prednisone Other: See Comments makes agitated and mean PAST MEDICAL HISTORY Diagnosis Date ? Allergic rhinitis, cause unspecified 05/17/2008 Spring and summer ? Benign liver cyst 05/24/2010 CT scan at [facility] 11/2009 and 04/2010 showe 4 mm increase in size. No pain. No elevated LFTs on 03/11/2010. ? Calculus of kidney 05/17/[address] Nicolas: Hospitalized age 20, and again later -- no procedures so far ([facility], 1995 [facility]) ? Dysmenorrhea ? History of blood transfusion ? Impaired fasting glucose 05/17/2008 Sugar 104 fasting, 04/21 ? MIGRAINE 05/17/2008 Has used imitrex with good response; Keeps Vicodin on hand when needed; ? Ovarian cyst 07/15/2012 ? Pancreatitis ? Smoker 05/17/2008 Started age 26, 1/2 a PPD PAST SURGICAL HISTORY Procedure Laterality Date ? CHOLECYSTECTOMY HX ? COLONOSCOPY 05/08/2020 poor prep, stool in entire colon, int hemorrhoids, diverticulosis ? D&C, DIAG AND/OR THERAPEUTIC ? EGD 05/08/2020 gastritis, duodenitis, mild esophagitis, 2 cm hiatal hernia ? LIGATE FALLOPIAN TUBE ? PAST SURGICAL HISTORY OF uterine ablation ? PAST SURGICAL HISTORY OF cyst removal ? REMOVAL OF OVARY(S) 2009 Oophorectomy right, still has left ? REMOVAL OF OVARY(S) 01/2015 left removed ? TOTAL ABDOM HYSTERECTOMY 08/31/06 Hysterectomy, MICHELINE Social History Tobacco Use ? Smoking status: Former Smoker Packs/day: 0.50 Years: 3.00 Pack years: 1.50 Types: Cigarettes Quit date: 01/12/2017 Years since quittin.3 ? Smokeless tobacco: Never Used ? Tobacco comment: Approx. 3 cigarettes daily-1 pack every week Substance Use Topics ? Alcohol use: Yes Comment: Occasional ? Drug use: Never FAMILY HISTORY Problem Relation Age of Onset ? Diabetes Maternal Grandmother ? Diabetes Maternal Grandfather ? Lipids Maternal Grandfather ? Stroke Maternal Grandfather ? Coronary Artery Disease Maternal Grandfather ? Cataract Maternal Grandfather ? Pancreatic Cancer Maternal Grandfather ? Diabetes Paternal Grandmother ? Diabetes Paternal Grandfather ? Coronary Artery Disease Paternal Grandfather ? Thyroid Mother unsure of details ? Arthritis Mother fibromyalgia ? Blood Disease Mother blood clots, unsure of details (aorta?) ? Breast Cancer Maternal Aunt ? Lipids Maternal Uncle ? Coronary Artery Disease Maternal Uncle ? other (ovarian ca) Other maternal cousin Review of Systems Constitutional: Negative for chills and fever. Musculoskeletal: Positive for falls and joint pain (right shoulder). Negative for neck pain. Skin: Negative for rash. Neurological: Negative for dizziness, tingling, weakness and headaches. Physical Exam Constitutional: She is well-developed, well-nourished, and in no distress. Pulmonary/Chest: Effort normal. Musculoskeletal: Right shoulder: She exhibits decreased range of motion, tenderness, bony tenderness, pain and decreased strength. She exhibits no swelling and no spasm. Left shoulder: Normal. Skin: Skin is warm and dry. Vitals reviewed. BP 124/82 Pulse 86 Temp (Src) 97.8 (Tympanic) Resp 16 Wt 198 lb 3.2 oz (89.9kg) LMP 08/10/2006 A/P (M25.511) Acute pain of right shoulder (primary encounter diagnosis) - XR SHOULDER GENERAL 3V OR MORE AP/TRUE AP/OTHER RT FINDINGS: KORI BLANKENSHIP MD No acute fractures or subluxations are noted. The joint spaces are well preserved. The mineralization of the bones is normal. There is no significant soft tissue swelling. IMPRESSION: No acute radiographic abnormalities identified in the right Shoulder. -given stretches/exercises -Rest, Ice, Compression, Elevation discussed -discussed use of acetaminophen -follow up with primary care if symptoms persist/worsen in 10-14 days Kenia Mcfarland APRN.JAKI Discussed above plan with patient. Pt agreeable with above plan. documented in this Johnny Delgadillo - 05/24/2020 3:15 PM EDT virtual VISIT FOLLOW UP. Changed to telephone due to poor connection. I had a virtual with Ms. Mcgregor today for follow up of abdominal pain, diarrhea, nausea, vomiting. This is a virtual visit. It required patient-provider interaction for the medical decision making asdocumented below. A virtual telemedicine Visit was substituted for a protocol-required in- person visit because of the recent COVID 19 pandemic which has caused disruption in normal operations spanning access to care,medical treatment, medications etc. This phone or virtual visit was conducted to prevent exposure ofthe patient to the virus and to optimize the patient's safety. and comes with inherent limitations of a phone encounter. A verbal permission was taken from the patient about continuing with the virtualvisit and ordering of necessary work up. UPDATED HISTORY: I had a phone consult With Ms Mcgregor yesterday for right sided/upper abdominal pain, diarrhea, nausea, vomiting. I advised her to go to the ED. Patient went to [place] ED and mentions 'nothing was done. They gave me IV fluids, did some blood work and told me my pancreas levels are normal and sent me home'. She continues to relate severe cramping abdominal pain associated with nausea, diarrhea, vomiting. No fever/chills. History of present Illness Last seen in GI clinic 04/26/2020 Reports nausea, vomiting and significant bloating. Abdominal cramps + Gets worse after a BM. She is getting 3 BMs/day. Has noted occasional blood in stool of long duration - attributes to hemorrhoids. Passage of foul smelling gas. Excessive burping. Heartburn + Takes Protonix 40mg po daily at 9am that was helping with GERD but since few week after her above mentioned symptoms started protonix not helping much. Also mentions difficulty in swallowing. Had choking episodes. Of note she presented to the ED in [place] in January 2020 for abdominal pain of [address] abdomen was essentially unremarkable including pancreas. Was found to have lipase of 193 on 02/15/2020. Amylase normal. Hepatic function panel. ? Has h/o cholecystectomy in 1998. PAST MEDICAL HISTORY Diagnosis Date ? Allergic rhinitis, cause unspecified 05/17/2008 Spring and summer ? Benign liver cyst 05/24/2010 CT scan at [facility] 11/2009 and 04/2010 showe 4 mm increase in size. No pain. No elevated LFTs on 03/11/2010. ? Calculus of kidney 05/17/[address] Nicolas: Hospitalized age 20, and again later -- no procedures so far [facility] ? Cancer (HCC) ? Diverticulosis ? Dysmenorrhea ? Hemorrhoids ? History of blood transfusion ? Impaired fasting glucose 05/17/2008 Sugar 104 fasting, 04/21 ? MIGRAINE 05/17/2008 Has used imitrex with good response; Keeps Vicodin on hand when needed; ? Ovarian cyst 07/15/2012 ? Pancreatitis ? Smoker 05/17/2008 Started age 26, 1/2 a PPD PAST SURGICAL HISTORY Procedure Laterality Date ? CHOLECYSTECTOMY HX ? COLONOSCOPY 05/08/2020 poor prep, stool in entire colon, int hemorrhoids, diverticulosis ? D&C, DIAG AND/OR THERAPEUTIC ? EGD 05/08/2020 gastritis, duodenitis, mild esophagitis, 2 cm hiatal hernia ? LIGATE FALLOPIAN TUBE ? PAST SURGICAL HISTORY OF uterine ablation ? PAST SURGICAL HISTORY OF cyst removal ? REMOVAL OF OVARY(S) 2009 Oophorectomy right, still has left ? REMOVAL OF OVARY(S) 01/2015 left removed ? TOTAL ABDOM HYSTERECTOMY 08/31/06 Hysterectomy, [facility] FAMILY HISTORY Problem Relation Age of Onset ? Diabetes Maternal Grandmother ? Diabetes Maternal Grandfather ? Lipids Maternal Grandfather ? Stroke Maternal Grandfather ? Coronary Artery Disease Maternal Grandfather ? Cataract Maternal Grandfather ? Pancreatic Cancer Maternal Grandfather ? Diabetes Paternal Grandmother ? Diabetes Paternal Grandfather ? Coronary Artery Disease Paternal Grandfather ? Thyroid Mother unsure of details ? Arthritis Mother fibromyalgia ? Blood Disease Mother blood clots, unsure of details (aorta?) ? Breast Cancer Maternal Aunt ? Lipids Maternal Uncle ? Coronary Artery Disease Maternal Uncle ? other (ovarian ca) Other maternal cousin Social History Tobacco Use ? Smoking status: Former Smoker Packs/day: 0.50 Years: 3.00 Pack years: 1.50 Types: Cigarettes Quit date: 01/12/2017 Years since quittin.3 ? Smokeless tobacco: Never Used ? Tobacco comment: Approx. 3 cigarettes daily-1 pack every week Substance Use Topics ? Alcohol use: Yes Comment: Occasional ? Drug use: Never Current Outpatient Medications Medication Sig Dispense Refill ? pantoprazole DR (PROTONIX) 40 mg tablet Take 1 tablet by mouth daily before breakfast. Take on empty stomach, 1/2 hr before meal. 30 tablet 3 ? diphenhydrAMINE (BENADRYL) 25 mg capsule Take 50 mg by mouth every 6 hours as needed. ? estradiol (ESTRACE) 2 mg tablet Take 2 mg by mouth once daily. ? dicyclomine (BENTYL) 10 mg capsule Take 1 capsule by mouth before meals and at bedtime. Use as directed 90 capsule 1 ? Bifidobacterium Infantis (ALIGN) 4 mg cap Take 1 capsule by mouth once daily. 30 capsule 2 ? sertraline (ZOLOFT) 100 mg tablet Take 1 tablet by mouth once daily. ? QUEtiapine (SEROQUEL) 100 mg tablet Take 1 tablet by mouth once daily. ? albuterol HFA (VENTOLIN HFA) 90 mcg/actuation inhaler Inhale 2 Puffs as instructed every 4 hours as needed. No current facility-administered medications for this visit. ALLERGIES Allergen Reactions ? Penicillins Rash ? Cephalexin Itching ? Chlorhexidine Rash Skin rash ? Asa [Salicylates] Other: See Comments ulcers ? Contrast Dye [Iodin* Shortness of Breath ? Ibuprofen GI Upset ? Prednisone Other: See Comments makes agitated and mean REVIEW OF SYSTEMS: 12 point system reviewed and negative other than HPI/interval history/review of systems. PHYSICAL FINDINGS OF NOTE: Deferred physical exam as visit was completed over the phone/MyChart. REVIEWED ITEMS 1. EGD 05/08/2020 Z-line regular, 34 cm from the incisors. ?- Esophagogastric landmarks identified. ?- 2 cm hiatal hernia. ?- Gastritis. Biopsied. ?- Duodenitis. Biopsied. 2. Colonoscopy Preparation of the colon was poor. ?- Diverticulosis in the sigmoid colon and in the ?descending colon. Biopsied. ?- Non-bleeding internal hemorrhoids. ?- Stool in the entire examined colon 3. Liver cysts including a complex cyst, enlarged compared to prior study. IMPRESSION 1. Ms Mcgregor with h/o gastroduodenitis on EGD, sigmoid diverticulosis on colonoscopy but otherwise poor prep, an episode of pancreatitis being evaluated for abdominal pain, diarrhea, nauesa, vomiting.Was advised to go to the ED yesterday - she went to [place] ED and was told that pancreas levels were normal - sent home with Enoc. Continues to have significant severe symptoms. R/o IBS flare up vs other. US has shown complex large liver cyst but present for several years and unlikely to be causingany symptoms although patient was sent to r/o any complication from it. RECOMMENDATION: Will give trial of Levsin and Carafate. Advised to stop Bentyl Advised to continue Protonix. Promethazine 25mg Q8h PRN for nausea. Advised to go to the [facility] ED if no improvement in symptoms. During this patient visit I have spent approximately 15 minutes in counseling regarding interpretation, education and coordination of care. Johnny Winn MD 3:22 PM documented in this encounterMala Almendarez - 06/05/2020 3:50 PM EDTAMBULATORY TELEPHONE VISIT Sally Mcgregor has consented to this telephone encounter. Persons Present: patient Chief Complaint/Reason: new patient HPI: 39-year-old female with a long history of a liver cyst. She states she had some certain drainage procedure in 2006 but does not remember what happened. She has continuous pain in the right upper quadrant. She was also recently hospitalized for pancreatitis. She had a cholecystectomy in the past. She denies any jaundice. She denies any fevers or chills. She is a non-smoker. She is a nondrinker. She has no family history of pancreatitis. She has had several cysts on her ovaries and has had an oophorectomy in the past. She denies any trauma to the area. She denies any jaundice. Data Reviewed: Most recent imaging Assessment: (K86.2) Pancreatic cyst (primary encounter diagnosis) I reviewed her recent imaging. This shows a large 10 cm cyst in the posterior lobe of her right liver. Her pancreas appears normal on her CT scan. Had a long discussion with her and told her I would like to get an MRI to better characterize her pancreatitis to ensure she does not have pancreas divisum. For her liver cyst she would be an excellent candidate for a laparoscopic liver cyst fenestration. If there is an issue with diabetes and she may benefit from a laparoscopic transduodenal sphincteroplasty. I will order the MRI and follow-up with her after this. Plan: MRI of pancreas Total Time Spent: 11 minutes Mala lAmendarez MD documented in this encounter Advance Directives No Advanced Directives Records Found Documents on File Type Date Recorded Patient Migrant Leader Explanati on Advance Directive(s) 05/08/2020 12:13 PM Documents on File Type Date Recorded Patient Migrant Leader Explanati on Advance Directive(s) 05/08/2020 12:13 PM Documents on File Type Date Recorded Patient Migrant Leader Explanati on Advance Directive(s) 05/08/2020 12:13 PM Advance Directive(s) 05/25/2020 7:47 AM Documents on File Type Date Recorded Patient Migrant Leader Explanati on Advance Directive(s) 05/08/2020 12:13 PM Advance Directive(s) 05/25/2020 7:47 AM Documents on File Type Date Recorded Patient Migrant Leader Explanati on Advance Directive(s) 05/08/2020 12:13 PM Advance Directive(s) 05/25/2020 7:47 AM Advance Directive(s) 06/08/2020 9:30 AM Documents on File Type Date Recorded Patient Migrant Leader Explanati on Advance Directive(s) 05/08/2020 12:13 PM Advance Directive(s) 05/25/2020 7:47 AM Advance Directive(s) 06/08/2020 9:30 AM Documents on File Type Date Recorded Patient Migrant Leader Explanati on Advance Directive(s) 05/08/2020 12:13 PM Advance Directive(s) 05/25/2020 7:47 AM Advance Directive(s) 06/08/2020 9:30 AM Advance Directive(s) 06/19/2020 3:44 PM Summary Purpose Family History No Family History Records FoundNo Family History Records FoundNo Family History Records FoundNo Family History Records FoundNo Family History Records FoundNo Family History Records Found Assessments Diagnosis Generalized abdominal pain Abdominal pain, generalized Loose stools Abnormal feces Dyspepsia Dyspepsia and other specified disorders of function of stomach Gastroesophageal reflux disease, esophag itis presence not specified Other dysphagia History of acute pancreatitis Personal history of other diseases of di gestive system Bloating Flatulence, eructation, and gas pain Nausea and vomiting, intractability of v omiting not specified, unspecified vomiting type Diagnosis Generalized abdominal pain Abdominal pain, generalized Loose stools Abnormal feces Dyspepsia Dyspepsia and other specified disorders of function of stomach Gastroesophageal reflux disease, esophag itis presence not specified Other dysphagia History of acute pancreatitis Personal history of other diseases of di gestive system Bloating Flatulence, eructation, and gas pain Nausea and vomiting, intractability of v omiting not specified, unspecified vomiting type Diagnosis Idiopathic acute pancreatitis, unspecifi ed complication status - Primary Diagnosis Liver cyst - Primary Other specified disorders of liver Idiopathic acute pancreatitis, unspecifi ed complication status Diagnosis Acute pain of right shoulder - Primary Idiopathic acute pancreatitis, unspecifi ed complication status Diagnosis Acute shoulder pain, unspecified lateral ity - Primary Idiopathic acute pancreatitis, unspecifi ed complication status Diagnosis Bloating - Primary Flatulence, eructation, and gas pain Nausea and vomiting, intractability of v omiting not specified, unspecified vomiting type Diarrhea, unspecified type Idiopathic acute pancreatitis, unspecifi ed complication status Diagnosis Pancreatic cyst - Primary Cyst and pseudocyst of pancreas Diagnosis Post-op pain - Primary Other acute postoperative pain Diagnosis Incisional infection - Primary Other postoperative infection Diagnosis Post-op pain - Primary Other acute postoperative pain Reason for Referral Status Reason Specialty Diagnoses / Referred By Referred To Procedures Contact Contact Authorized PCP Requested General Surgery Diagnoses Liver cyst Johnny Winn Mala Almendarez Referral Procedures CONSULT TO GENERAL SURGERY NEW PATIENT VISIT LEVEL [address] [facility] [address] [facility] [place], [place] [id number] Phone: Fax: Status Reason Specialty Diagnoses / Referred By Referred To Procedures Contact Contact Authorized PCP Requested Orthopedics Diagnoses Acute shoulder pain, unspecified laterality Marcelino Mejia Referral Procedures CONSULT TO ORTHOPAEDICS NEW PATIENT VISIT LEVEL [address] [place] [address] Status Reason Specialty Diagnoses / Referred By Referred To Procedures Contact Contact Pending Review Auto-Generated MR IMAGING Diagnoses Pancreatic cyst Mala Almendarez Mr Imaging Referral Procedures MRI ABDOMEN WO/W IVCON MRI,ABDOMEN,W&WO CONTRS [address] [address] Status Reason Specialty Diagnoses / Procedures Referred By C ryan Referred To Contact Closed Diagnoses Post-op pain Mala Almendarez [address] [address] Phone: Instructions Patient InstructionsKenia Mcfarland) - 05/17/2020 12:23 PM EDTA/P (M25.511) Acute pain of right shoulder (primary encounter diagnosis) - XR SHOULDER GENERAL 3V OR MORE AP/TRUE AP/OTHER RT FINDINGS: KORI BLANKENSHIP MD No acute fractures or subluxations are noted. The joint spaces are well preserved. The mineralization of the bones is normal. There is no significant soft tissue swelling. IMPRESSION: No acute radiographic abnormalities identified in the right Shoulder. -given stretches/exercises -Rest, Ice, Compression, Elevation discussed -discussed use of acetaminophen -follow up with primary care if symptoms persist/worsen in 10-14 days documented in this encounterPatient Mala Rodriguez - 06/05/2020 4:10 PM EDTOffice will call with date and time for MRI documented in this encounter Health Concerns Infection Onset Date Last Indicated Resolved Time COVID-19 Rule-Out 06/08/2020 06/08/2020 06/10/2020 1:3 8 AM EDT Additional Source Comments FOR RECORDS PERTAINING TO PATIENTS WHO ARE OR HAVE BEEN ENROLLED IN A CHEMICAL DEPENDENCY/SUBSTANCE ABUSE PROGRAM, SOME INFORMATION MAY BE OMITTED. This clinical summary was aggregated from multiple sources. Caution should be exercised in using it in the provision of clinical care. This summary normalizes information from multiple sources, and as a consequence, information in this document may materially changethe coding, format and clinical context of patient data. In addition, data may be omittedin some cases. CLINICAL DECISIONS SHOULD BE BASED ON THE PRIMARY CLINICAL RECORDS. [facility] provides no warranty or guarantee of the accuracy or completeness of information in this document. UNRECOGNIZED CONTENT PROVIDED BELOW FOR UNRECOGNIZED SECTION Source Comments In the event this information is protected by the Federal Confidentiality of Alcohol and Drug Abuse Patient Records regulations: The Federal rules restrict any use of the information to criminally investigate or prosecute any alcohol or drug abuse patient.[facility] CampusIn the event this information is protected by the Federal Confidentiality of Alcohol and Drug Abuse Patient Records regulations: The Federal rules restrict any use of the information to criminally investigate or prosecute any alcohol or drug abuse patient.[facility] CampusIn the event this information is protected by the Federal Confidentiality of Alcohol and Drug Abuse Patient Records regulations: The Federal rules restrict any use of the information to criminally investigate or prosecute any alcohol or drug abuse patient.[facility] CampusIn the event this information is protected by the Federal Confidentiality of Alcohol and Drug Abuse Patient Records regulations: The Federal rules restrict any use of the information to criminally investigate or prosecute any alcohol or drug abuse patient.[facility] CampusIn the event this information is protected by the Federal Confidentiality of Alcohol and Drug Abuse Patient Records regulations: The Federal rules restrict any use of the information to criminally investigate or prosecute any alcohol or drug abuse patient.[facility] CampusIn the event this information is protected by the Federal Confidentiality of Alcohol and Drug Abuse Patient Records regulations: The Federal rules restrict any use of the information to criminally investigate or prosecute any alcohol or drug abuse patient.[facility] CampusIn the event this information is protected by the Federal Confidentiality of Alcohol and Drug Abuse Patient Records regulations: The Federal rules restrict any use of the information to criminally investigate or prosecute any alcohol or drug abuse patient.[facility] CampusIn the event this information is protected by the Federal Confidentiality of Alcohol and Drug Abuse Patient Records regulations: The Federal rules restrict any use of the information to criminally investigate or prosecute any alcohol or drug abuse patient.[facility] CampusIn the event this information is protected by the Federal Confidentiality of Alcohol and Drug Abuse Patient Records regulations: The Federal rules restrict any use of the information to criminally investigate or prosecute any alcohol or drug abuse patient.[facility] CampusIn the event this information is protected by the Federal Confidentiality of Alcohol and Drug Abuse Patient Records regulations: The Federal rules restrict any use of the information to criminally investigate or prosecute any alcohol or drug abuse patient.[facility] ClinicIn the event this information is protected by the Federal Confidentiality of Alcohol and Drug Abuse Patient Records regulations: The Federal rules restrict any use of the information to criminally investigate or prosecute any alcohol or drug abuse patient.[facility] CampusIn the event this information is protected by the Federal Confidentiality of Alcohol and Drug Abuse Patient Records regulations: The Federal rules restrict any use of the information to criminally investigate or prosecute any alcohol or drug abuse patient.[facility] CampusIn the event this information is protected by the Federal Confidentiality of Alcohol and Drug Abuse Patient Records regulations: The Federal rules restrict any use of the information to criminally investigate or prosecute any alcohol or drug abuse patient.[facility] CampusIn the event this information is protected by the Federal Confidentiality of Alcohol and Drug Abuse Patient Records regulations: The Federal rules restrict any use of the information to criminally investigate or prosecute any alcohol or drug abuse patient.[facility] CampusIn the event this information is protected by the Federal Confidentiality of Alcohol and Drug Abuse Patient Records regulations: The Federal rules restrict any use of the information to criminally investigate or prosecute any alcohol or drug abuse patient.[facility] CampusIn the event this information is protected by the Federal Confidentiality of Alcohol and Drug Abuse Patient Records regulations: The Federal rules restrict any use of the information to criminally investigate or prosecute any alcohol or drug abuse patient.[facility] CampusIn the event this information is protected by the Federal Confidentiality of Alcohol and Drug Abuse Patient Records regulations: The Federal rules restrict any use of the information to criminally investigate or prosecute any alcohol or drug abuse patient.[facility] CampusIn the event this information is protected by the Federal Confidentiality of Alcohol and Drug Abuse Patient Records regulations: The Federal rules restrict any use of the information to criminally investigate or prosecute any alcohol or drug abuse patient.[facility] CampusIn the event this information is protected by the Federal Confidentiality of Alcohol and Drug Abuse Patient Records regulations: The Federal rules restrict any use of the information to criminally investigate or prosecute any alcohol or drug abuse patient.[facility] CampusIn the event this information is protected by the Federal Confidentiality of Alcohol and Drug Abuse Patient Records regulations: The Federal rules restrict any use of the information to criminally investigate or prosecute any alcohol or drug abuse patient.[facility] CampusIn the event this information is protected by the Federal Confidentiality of Alcohol and Drug Abuse Patient Records regulations: The Federal rules restrict any use of the information to criminally investigate or prosecute any alcohol or drug abuse patient.[facility] CampusIn the event this information is protected by the Federal Confidentiality of Alcohol and Drug Abuse Patient Records regulations: The Federal rules restrict any use of the information to criminally investigate or prosecute any alcohol or drug abuse patient.[facility] CampusIn the event this information is protected by the Federal Confidentiality of Alcohol and Drug Abuse Patient Records regulations: The Federal rules restrict any use of the information to criminally investigate or prosecute any alcohol or drug abuse patient.[facility] UNRECOGNIZED CONTENT PROVIDED BELOW FOR UNRECOGNIZED SECTION Reason for Visit Reason Comments Radiology XR Reason Onset Date Comments Medication request 04/27/2020 Reason Onset Date Comments Returning Patient's Call 04/30/2020 Reason Comments Radiology US Reason Onset Date Comments Results 05/01/2020 Status Reason Specialty Diagnoses / Referred By Referred To Procedures Contact Contact Closed Gastroenterology / Diagnoses generalized abdominal pain, loose stools, dyspepsia,gerd,dysphagia 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 SPEC EGD W/O OR W/BRUSH/WASH COLONOSCOPY W/EGD Cal Mccall [address] [place], [place] [address] Phone: [place], [place] [phone] Fax: Reason Onset Date Comments Patient Update 05/07/2020 Reason Comments right shoulder pain fell in shoulder yesterday Reason Onset Date Comments Referral Request 05/18/2020 Reason Comments Nausea & Vomiting Reason Onset Date Comments surgical referral 05/11/2020 Reason Onset Date Comments Patient Update 05/31/2020 Reason Comments New Patient Reason Onset Date Comments Multiple Concerns 06/15/2020 Reason Onset Date Comments Refill Request 06/25/2020 UNRECOGNIZED CONTENT PROVIDED BELOW FOR UNRECOGNIZED SECTION INFORMATION SOURCE DATE CREATED AUTHOR AUTHOR'S ORGANIZATIO N 10/21/2019 [facility] DATE CREATED AUTHOR AUTHOR'S ORGANIZATIO N 04/06/[address] [facility] DATE CREATED AUTHOR AUTHOR'S ORGANIZATIO N 02/26/2020 [facility] ([place]) DATE CREATED AUTHOR AUTHOR'S ORGANIZATIO N 06/11/2020 [facility] DATE CREATED AUTHOR AUTHOR'S ORGANIZATIO N 06/21/2020 [facility] DATE CREATED AUTHOR AUTHOR'S ORGANIZATIO N 06/26/2020 [facility] UNRECOGNIZED CONTENT PROVIDED BELOW FOR UNRECOGNIZED SECTION Miscellaneous Notes Telephone Encounter - Branden Sanders Ma - 04/27/2020 5:49 PM EDTSpoke to patient and she at ER who gave her nausea medicine Branden Sanders Ma Telephone Encounter - Marcelino Mejia - 04/27/2020 5:44 PM EDTAdvise patient to request the nausea medication from the gastro physician she seen. elephone Encounter - Christopher Carcamo RN - 04/27/2020 9:03 AM EDTPatient asking if pcp would send Rx for phenergan to [facility]. Reports she's had nausea for weeks. Saw GI yesterday, and has scheduled an EGD and colonoscopy. Reports the GI specialist tells her there is something wrong with her digestive system. documented in this encounterTelephone Encounter - Pierce Barber Ma - 04/30/2020 12:15 PM EDT Tried to return call, voicemaill full Pierce aBrber MA documented in this encounterTelephone Encounter - Pierce Barber Ma - 05/01/2020 3:46 PM EDTTried to call patient voicemail is full. Also noted celiac panel was not drawn, left message with [place] lab to contact patient for redraw Pierce Barber CMA elephone Encounter - Barber Pierce Cates - 05/01/2020 3:46 PM EDT----- Message from Johnny Winn sent at 05/01/2020 2:57 PM EDT ----- Normal IgG Will need EUS for unexplained pancreatitis. Johnny Winn MD documented in this encounterPatient Education - Penny Benedict RN - 05/08/2020 1:30 PM EDT LEARNING RESPONSE METHOD OF INSTRUCTION: Individual instruction PATIENT / FAMILY RESPONSE: Verbalizes understanding of: instructions FOLLOW-UP PLAN: Await EGD pathology,repeat colonoscopy in 5 years. SUPPLEMENTAL MATERIAL: Procedure Discharge Instructions,High fiber and diverticulosis ,GERD and hiatal hernia as well as protonix handouts given REFERRAL (RECOMMENDATION): None documented in this encounterTelephone Encounter - Pierce Barber Ma - 05/07/2020 11:59 AM EDT FYI- I tried on multiple occasions to call her, her voicemail has been full. She actually called here today, has colon and EGD scheduled tomorrow. I let her know you may or may not do the EGD since youhad wanted to do and EUS, please also note she just had regular US done. Also, lab did not draw the celiac panel. Pierce Barber CMA elephone Encounter - Barber Pierce Cates - 05/07/2020 11:59 AM EDT----- Message from Johnny Winn sent at 05/01/2020 2:57 PM EDT ----- Normal IgG Will need EUS for unexplained pancreatitis. Johnny Winn MD documented in this encounterTelephone Encounter - Yvette Huffman RN - 05/18/2020 9:09 AM EDTPt called, verified by name and birthdate. Patient notified of provider's instructions. Patient verbalizes understanding. Pt transferred to [facility] to schedule ortho apt Yvette Huffman RN elephone Encounter - Branden Sanders Ma - 05/18/2020 9:05 AM EDTTried calling patient no answer and vm full Branden Sanders Ma Telephone Encounter - Marcelino Mejia - 05/18/2020 8:48 AM EDTAdvise patient at this point she's going to have to continue with the tylenol either extra strength 500 mg two every 6 hrs or tylenol arthritis 650 mg two every 8 hrs. She should also be icing the shoulder 2-3 times a day for 20 min elephone Encounter - Yvette Huffman RN - 05/18/2020 8:18 AM EDTPt called, verified by name and birthdate. Pt states she has chronic rt shoulder pain that has been acute for apx 1 week. Pt was at urgent care yesterday for this. Pt would like ortho referral. Order pe nded. Pt also wants to know what she can take for the pain. Pt states she has been taking tylenol with no relief and states she can not take motrin per GI physician. Pt wants to know what will help with pain. Please advise Yvette Huffman RN documented in this encounterTelephone Encounter - Eleanor Cohen - 05/11/2020 3:43 PM EDTShe is scheduled for egd/eus for You had aslo mentioned seeing a surgeon for liver cysts I need the consult in epic Thank you Shahla documented in this encounterTelephone Encounter - Pierce Barber Ma - 05/31/2020 2:36 PM EDTPatient call, said she was doing ok yesterday, today having epigastric abdominal pain, nausea and vomiting. Has appt with Dr. Almendarez next week. Advised ER consult due to worsening of symptoms. Pierce Barber MA documented in this encounterTelephone Encounter - Taty Perea (Stephanie Pollack) - 06/15/2020 11:19 AM EDTPatient called the office with concerns for infection at her incision site. She states it is red, painful, swollen, and warm. She is having a small amount of drainage that she describes as pus-like. She denies fevers or chills. She was offered an appointment to be seen today, however she lives 1 hour away and does not have transportation. She refuses to go to her local ER to be seen because they treat her poorly. I will send an RX to her pharmacy for an antibiotic. She is to notify the office if her symptoms worsen or do not improve. Taty Perea APRN, [employer] documented in this encounter UNRECOGNIZED CONTENT PROVIDED BELOW FOR UNRECOGNIZED SECTION H&P Notes Johnny Winn - 05/08/2020 1:30 PM EDTHISTORY AND PHYSICAL Sally Mcgregor, 39 year old female here for EGD/colonoscopy Current history and physical on file: Yes Is a new History and Physical required for today's visit? No Indication for procedure: Abdominal pain, Dysphagia, GERD, Nausea & Vomiting and Rectal Bleeding PROCEDURE(S) SCHEDULED FOR: Colonoscopy with or without biopsies and with or without removal of polyps or lesions, dilation (any means), treatment of bleeding (any means), based on clinical findings. and EGD (Esophagogastroduodenoscopy) with or without biopsies, removal of polyps or lesions, dilation ( any means), treatment of b leeding ( any means), Barrx treatment of Marquez's Esophagus, image tube placement or cryo therapy treatment based on clinical findings. BASELINE BEHAVIOR: Calm BASELINE ORIENTATION: A & O x3 All medications and allergies reviewed: Yes Skin Assessment: Warm dry mucus membranes pink Airway/Respiratory Assessment: Airway: visualization of the uvula- Yes Mouth: opening greater than 2 fingerbreadths- Yes Neck: full range of motion- Yes Breath sounds clear/equal- Yes Cardiac Assessment: Regular rate and rhythm without murmur Abdominal Assessment: Abdomen soft, non-tender, no masses or organomegaly. Sedation Plan: Moderate Additional Comments: None Johnny Winn MD documented in this encounter
--- OUTSIDE RECORDS SUMMARY | 2020-06-26 14:55 | XMS RPT_ITS | CCD ---
:1980 External Reference #:[id number] Author Organization [facility] Care Team Providers Name Role Phone [...] Cephalexin Itching 10-20-2019 - [facility] ([id number]) Chlorhexidine Rash 10-29-2016 - [facility] (97436) CONTRAST MEDIA, Moderate Mello Pomeren e IODINE RELATED ([facility]) Repository (Qualifier Value) Ibuprofen GI Upset Low 06-18-2016 - [facility] (41240) Ibuprofen Moderate [facility] ([facility]) Repository (Qualifier Value) Iodine Shortness of Breath Low 05-17-2008 - [facility] (94030) Ketorolac Moderate [facility] ([facility]) Repository (Qualifier Value) Ketorolac Rash 05-25-2020 - [facility] (99010) metroNIDAZOLE Moderate [facility] ([facility]) Repository (Qualifier Value) Penicillins Rash Mod[facility]60434[facility] Penicillins Moderate [facility] ([facility]) Repository (Qualifier Value) predniSONE Other: See Comments Low 06-18-2016 - [facility] (62372) Promethazine Moderate Mello Pome[facility] ([facility]) Repository (Qualifier Value) Salicylic Acid Other: See Comments Low 01-27-2011 - [facility] (31805) traMADol Rash 05-25-2020 - [facility] (39331) Medications Medication Name Sig Date Prescriber Location Albuterol albuterol HFA (VENTOLIN [facility] Provider [facility] (66524) HFA) 90 mcg/actuation inhaler Inhale 2 Puffs as instructed every 4 hours as needed. 0 Active Comment: Inhale 2 Puffs as instructed every 4 hours as needed. Bifidobacterium Bifidobacterium 04-26-2020 - Johnny [facility] Infantis Infantis (ALIGN) 4 mg 07-25-2020 [facility] (12351) cap Take 1 capsule by mouth once daily. 30 capsule 2 04/26/2020 07/25/2020 Active Comment: Take 1 capsule by mouth once daily. Clindamycin clindamycin (CLEOCIN) 06-15-2020 - Jonh (Res) [facility] 300 mg capsule 06-26-2020 [facility] (73329) Indications: Incisional infection Take 1 capsule by mouth four times daily for 5 days. 20 capsule 0 06/21/2020 06/26/2020 Active Comment: Take 1 capsule by mouth four times daily for 5 days. diazePAM diazePAM (VALIUM) 5 mg 06-05-2020 - [facility] tablet Indications: 06-07-2020 Mala [facility] (60551) Pancreatic cyst Take 1 tablet by mouth once daily for 2 days. 2 tablet 0 06/05/2020 06/07/2020 Active Comment: Take 1 tablet by mouth once daily for 2 days. Dicyclomine dicyclomine (BENTYL) 04-26-2020 - Johnny Mccall [facility] 10 mg capsule Take 1 05-24-2020 [facility] (21219) capsule by mouth before meals and at bedtime. Use as directed 90 capsule 1 04/26/2020 05/24/2020 Discontinued Comment: Take 1 capsule by mouth befo re meals and at bedtime. Use as directed diphenhydrAMINE diphenhydrAMINE (BENADRYL) 03-29-2019 [facility] Provide r [facility] 25 mg capsule Take 50 mg (44 195) by mouth every 6 hours as needed. 0 03/29/2019 Active Comment: Take 50 mg by mouth every 6 hours as needed. Docusate docusate sodium 06-21-2020 Jonh (Res) [facility] (COLACE) 100 mg capsule Bertke (441 95) Take 1 capsule by mouth twice daily. 60 capsule 0 06/21/2020 Active Comment: Take 1 capsule by mouth twic e daily. Estradiol estradiol (ESTRACE) 2 mg 03-23-2020 [facility] Provider [facility] (72427) tablet Take 2 mg by mouth once daily. 0 03/23/2020 Active Comment: Take 2 mg by mouth once kehinde y. HYDROmorphone HYDROmorphone 06-12-2020 - Mala Almendarez [facility] nghia (HYDROMORPHONE) 2 mg 06-19-2020 (54439) tablet Indications: Post-op pain Take 1 tablet by mouth every 3 hours as needed for Pain for up to 7 days. 40 tablet 0 06/12/2020 06/19/2020 Active Comment: Take 1 tablet by mouth every 3 hours as needed for Pain for up to 7 days. Hyoscyamine hyoscyamine (LEVSIN) 05-24-2020 Johnny Mccall [facility] 0.125 mg tablet Take 1 [facility] (4419 5) tablet by mouth every 6 hours as needed. 60 tablet 1 05/24/2020 Active Comment: Take 1 tablet by mouth every 6 hours as needed. iv contrast (will iv contrast (will be 06-05-2020 - Mala Almendarez [facility] be provided with provided with 06-06-2020 Mala Almendarez (75162) radiology test) radiology test) MRI ABDOMEN Inject, [...] metroNIDAZOLE metroNIDAZOLE (FLAGYL) 04-26-2020 - Johnny Mccall [facility] 500 mg tablet Take 1 05-03-2020 [facility] (88804) tablet by mouth three times daily for 7 days. 21 tablet 0 04/26/2020 05/03/2020 Active Comment: Take 1 tablet by mouth three times daily for 7 days. Naloxone naloxone 4 mg/actuation 06-21-2020 Jonh (Res) [facility] nasal spray (NARCAN) Use Chad (80 195) 1 spray in one nostril as [...] oxyCODONE IR 06-21-2020 - Maria Luisa Trejo [facility] (ROXICODONE) 5 mg 06-26-2020 (11512) immediate release tablet Indications: Benign liver cyst Take 1 tablet by mouth every 8 hours as needed for up to 5 days. 15 tablet 0 06/21/2020 06/26/2020 Active oxyCODONE IR 05-29-2020 - Sorin (Res) [facility] (ROXICODONE) 5 mg 06-03-2020 Alhalalmeh (79464) immediate release tablet Indications: Intractable nausea and [...] inic (PROTONIX) 40 mg 04-30-2020 [facility] (89315) tablet Take 1 tablet by mouth daily before breakfast. Take on empty stomach, 1/2 hr before meal. 30 tablet 3 04/30/2020 Active Comment: Take 1 tablet by mouth daily before breakfast. Take on empty stomach, 1/2 hr before meal. POLYETHYLENE GLYCOL polyethylene glycol 06-21-2020 - Payne (Res ) [place] 3350 3350 (MIRALAX) 17 07-22-2020 [facility] (44 195) gram/dose powder Dissolve 1 packet in 4-8 ounces of liquid and drink by mouth once daily as directed. 476 g 0 06/21/2020 07/22/2020 Active Comment: Dissolve 1 packet in 4-8 oun simi of liquid and drink by mouth once daily as directed. POLYETHYLENE GLYCOL peg 3350-Electrolytes 04-26-2020 - Johnny Mccall [place] 3350 / Potassium (GOLYTELY) 04-26-2020 [facility] (441 95) Chloride / Sodium 236-22.74-6.74 -5.86 Jhonny Mccall Bicarbonate / gram suspension [facility] [...] 1 mg cap Take 1 [facility]cf Provider [facility] (91143) mg by mouth daily at bedtime. 0 Active Comment: Take 1 mg by mouth daily at bedtime. pregabalin pregabalin (LYRICA) 06-25-2020 - Mala oliver [facility] 300 mg capsule 07-09-2020 Mala Almendarez (72553) Indications: Post-op pain Take 1 capsule by mouth twice daily for 14 days. 28 capsule 0 06/25/2020 07/09/2020 Active Comment: Take 1 capsule by mouth twic e daily for 14 days. Promethazine promethazine (PHENERGAN) 05-24-[address] [facility] 25 mg tablet Take 1 [facility] (17712) tablet by mouth every 8 hours as needed (for nausea). 10 tablet 0 05/24/2020 Active Comment: Take 1 tablet by mouth every 8 hours as needed (for nausea). QUEtiapine QUEtiapine (SEROQUEL) 02-23-2020 Marcelino Mejia [facility] 100 mg tablet Take 1 (12349) tablet by mouth once daily. 0 02/23/2020 Active Comment: Take 1 tablet by mouth once daily. Sertraline sertraline (ZOLOFT) 100 02-23-2020 Marcelino Ferreira [facility] mg tablet Take 1 tablet (441 95) by mouth once daily. 0 02/23/2020 Active Comment: Take 1 tablet by mouth once daily. Sucralfate sucralfate (CARAFATE) 1 05-24-2020 Johnny Mccall N[facility] gram tablet Take 1 (14242) tablet by mouth four times daily. 30 tablet 0 05/24/2020 Active Comment: Take 1 tablet by mouth four times daily. Problems Active Problems Category Problem Name Status Date Location Abdominal pain Lower abdominal pain, Active 10-31-2019 - [facility]85452[facility] Anxiety disorders Generalized anxiety Active 03-31-2016 - [facility] disorder (25685) Esophageal disorders Gastroesophageal reflux Active [facility] disease (38746) Headache; including Migraine without aura Active 05-17-2008 - [facility] migraine [facility] (93015) Mood disorders Reactive depression Active 03-31-2016 - [facility] (situational) (87271) Nausea and vomiting Nausea and vomiting Active 05-25-2020 - C [facility] (78532) Other disorders of Indigestion Active [facility] stomach and duodenum (98277) Other gastrointestinal Diarrhea Active [facility] disorders (50342) Other gastrointestinal Loose stool Active [facility] disorders (82454) Other gastrointestinal Abdominal bloating Active [facility] disorders (13761) Other gastrointestinal Dysphagia Active [facility] disorders (27118) Other gastrointestinal Personal history of Active [facility] disorders other diseases of the (43196 ) digestive system Other infections; Local infection of wound Active [facility] including parasitic (37090) Other liver diseases Liver cyst Active 05-24-2010 - [facility] (23526) Other nervous system Postoperative pain Active 06-19-2020 - C [facility] disorders (53382) Other nervous system Chronic pain syndrome Active 06-06-2020 - [facility] disorders (22609) Other non-traumatic joint Shoulder pain Active C [facility] disorders (44103) Other upper respiratory Allergic rhinitis Active 05-17-2008 - [facility] disease (82025) Pancreatic disorders (not Idiopathic acute Active [facility] diabetes) pancreatitis (15228) Paralysis Weakness of right leg Active 02-23-2017 - [facility] (25996) Substance-related Smoker Active 05-17-2008 - Mello Pomer willem disorders [facility] (83670) Unclassified Patient encounter status Active 05-17-2008 - [facility] (45913) Past or Other Problems Category Problem Name Status Date Location Allergic reactions Allergy status to Completed 10-31-2019 - Mello Pomerene narcotic agent status [facility] (32404) Blindness and vision Blurring of visual Completed 02-23-2017 - [facility] defects image (99659) Calculus of urinary Kidney stone Completed 05-17-2008 - [facility] tract (88044) Diabetes mellitus Impaired fasting Completed 05-17-2008 - [facility] without complication glycaemia (51165) Miscellaneous mental Adjustment insomnia Completed 03-31-2016 - [facility] health disorders (75959) Other connective tissue Muscle weakness of Completed 02-23-2017 - [facility] disease upper limb (71138) Other connective tissue Trochanteric bursitis Completed 06-18-20 - [facility] disease (86025) Other diseases of Hydroureter Completed 02-05-2017 - [facility] kidney and ureters (34368) Other diseases of Hydronephrosis Completed 02-05-2017 - [facility] kidney and ureters (06049) Other lower respiratory Multiple nodules of Completed 01-22-2020 - [facility] disease lung (57406) Other nervous system Numbness of lower limb Completed 02-23-2017 - [facility] disorders (80141) Other nervous system Numbness of upper limb Completed 02-23-2017 - [facility] disorders (51475) Other nervous system Numbness of face Completed 02-23-2017 - [facility] disorders (85708) Other non-traumatic Hip pain Completed 06-18-2016 - [facility] joint disorders (64860) Other screening for MRI of lumbar spine Completed 02-23-2017 - C [facility] suspected conditions abnormal (92271) (not mental disorders or infectious disease) Ovarian cyst Cyst of ovary Completed 07-15-2012 - [facility] (86685) Residual codes; Acquired absence of Completed 10-31-2019 - [facility] unclassified both cervix and uterus [facility] (88927) Residual codes; Acquired absence of Completed 10-31-2019 - [facility] unclassified other specified parts [facility] of digestive tract (39563) Residual codes; FH: Diabetes mellitus Completed 05-17-2008 - [facility] unclassified (16321) Spondylosis; Low back pain Completed 06-18-2016 - [facility] intervertebral disc (43568) disorders; other back problems Results Result Name Value Range Unit Interpretation Flag Date Location obsolete on 2020-06 OBSOLETE Refill ([facility]) Normal 06-25-2020 [facility] SALLY MCGREGOR ([id number]) 1980 F Medical Date Time Provider Department Center 06/25/20 MALA ALMENDAREZ [facility] (14784) During your visit today, we recorded the [...] 06/25/20 progress on 2020-06 PROGRESS HNO ID: [id number] Normal 06-21-2020 Milka Dumont Author: Maria Luisa K [facility] Service: Pain Management (57338) Author Type: Physician Type: Progress Notes Filed: [...] Approx. 3 cigarettes daily-1 pack every w rosebud Substance Use Topics - Alcohol use: Yes [...] and migraine headache. She was referred to [facility] pain management but was unable to go [...] pain. Small quantity oxycodone prescription sent to [facility] Maria Luisa Trejo MD plan of care on PLAN OF CARE HNO ID: [id number] Normal 06-21-20 [facility] Author: Rhonda Holman (Pharmacist) Center (42103) Service: Pharmacy Author Type: Pharmacist Type: Plan [...] PHARMACIST June 21, 2020 11:55 AM Pager: [phone] 06/21/2020 11:55 AM Medication List START taking [...] Your Medications These medications were sent to [facility] [address] [place], [place] [id number] Hours: Thursday-Thursday, 8am-6:30pm ? clindamycin 300 mg capsule ? docusate sodium 100 mg capsule ? naloxone 4 mg/actuation nasal spray ? oxyCODONE IR 5 mg immediate release tablet ? polyethylene glycol 3350 17 gram/dose powder nursing prog on NURSING HNO ID: [id number] Normal 06-21-2020 [place] [facility] Author: Silvia Naranjo) VIN Gomez General Service: ? Medical Author Type: Registered Nurse Center Type: Nursing Progress Note ([id number]) Filed: 06/20/2020 11:32 PM Note Text: Nursing Progress Note Patient Name: Sally Mcgregor Patient Location: [id number] Pt has been eating better and was told by the doctor that wh en her intake improved the fluids could be discontinued. Pt does not want fluids to continue so RN stopped fluids on pt's request. Doctor note i ndicated what the pt said. This note was completed by: Silvia Gomez RN progress on 2020-06 PROGRESS HNO ID: [id number] Normal 06-20-2020 [place] Author: Jonh Urrutia DO General Service: General Surgery Medical Author Type: Resident Center Type: Progress Notes ([id number]) Filed: 06/20/2020 8:38 AM Note Text: Attestation signed by Mala Almendarez at 06/20/2020 2:18 PM I saw and evaluated the patient. Discussed with the reside nt and agree with resident's findings and plan as documented in the resident's note. [facility] Progress Note SERVICE DATE: 06/20/2020 [facility] Service Pager: For questions or concerns Mon-Fri 6a-5p please page [phone]. After 5pm and on Weekends and Holidays, please page [phone]. SUBJECTIVE: Doing better this morning. Says pain [...] - enteric contrast (radiology procedure) ORAL DIRECTED WI N - oxyCODONE IR 5-10 mg tab(s) [...] questions or concerns Mon-Fri 6a-5p please page [phone]. After 5pm and on Weekends and Holidays, please page [phone] if in ICU or [phone] if on RNF. plan of care on PLAN OF CARE HNO ID: [id number] Normal 06-20-20 20 [facility] Medical Author: Nancy Abebe [place] ([id number]) Service: General Surgery Author Type: Resident Type: [...] history physical on 2020-06-20 HISTORY HNO ID: [id number] Normal 06-20-2020 [place] PHYSICAL Author: Nancy Abebe [facility] Service: General Surgery Medical Author Type: Resident Center Type: HAND ([id number]) Filed: 06/19/2020 11:38 PM Note Text: Attestation signed by Mala Almendarez at 06/20/2020 2:18 PM Attending Note I personally saw and examined the patient. I reviewed the resident's note. I agree with the resident's assessment and plan with the [facility] revisions and/or additions: CT scan reviewed. [...] get worse. She was se nt to [facility] ED, where she was given IV Dilauded and transferred here to [facility]. Pt reports that she is urinating, passing flatus and BMs. No N/ V. No fevers or chills. Last PO was at 1300h. Pt has a h/o multiple abd surgeries. Reformed smoker x5 anai hs. FUNCTIONAL STATUS: Independent PAST MEDICAL HISTORY Diagnosis Date - Allergic rhinitis, cause unspecified 05/17/2008 Spring and summer - Benign liver cyst 05/24/2010 CT scan at [facility] 11/2009 and 04/2010 showe 4 mm increase in size . No pain. No elevated LFTs on 03/11/2010. - Calculus of kidney 05/17/[address] Nicolas: Hospitalized age 20, and again later -- no procedures so far ([facility] [place] [facility], 1995 [facility]) - Cancer (HCC) - Diverticulosis - Dysmenorrhea [...] Approx. 3 cigarettes daily-1 pack every w rosebud Substance Use Topics - Alcohol use: Yes [...] oz (86.0kg) SpO2 100% LMP 08/10/2006 B [place] 35.84 kg/(m2). O2 Therapy: Room Air DATA: [...] DATE OF EXAM: Jun 20 2020 11:59AM [facility] 0530 - CT ABD/PEL W IVCON / (11823) PROCEDURE REASON: Abd pain, unspecified Physician Interpretation [...] ed portions of the heart are unremarkable. Yard Coupler (topogram) images: No additional findings. IMPRESSION: 1. Postsurgical changes in the posterior right hepatic dome with residual 8.3 cm cystic cavity with trace likely postsurgical gas, but no peripheral enhancement to suggest acute inflammation. 2. Other hepatic cyst are unchanged. 3. No acute intra-abdominal or pelvic findings. Concrete Finisher: HERMINIO Transcribe Date/Time: Jun 20 2020 12:16P Dictated by : NILAM OVIEDO MD This examination was interpreted and the report reviewed and electronically signed by: NILAM OVIEDO MD on Jun 20 2020 12:28PM EST consult on CONSULT HNO ID: [id number] Normal 06-20-2020 [place] [facility] Author: [facility] Anya [facility] Service: Pain Management ([id number]) Author Type: Physician Type: Consults Filed: 06/20/2020 [...] - enteric contrast (radiology procedure) ORAL DIRECTED WI N Kaushal (Res) DO Grupo - oxyCODONE IR 5-10 mg tab(s) (ROXICODONE) 5-10 mg ORAL q 4 H PRN Maria Luisa Trejo - sucralfate 1 g tab(s) (CARAFATE) 1 g ORAL QID Nancy PickardRe sJoao Abebe 1 g at 06/19/202105 - QUEtiapine 100 mg tab(s) (SEROquel) 100 mg ORAL DAILY Hardy Abebe 100 mg at 06/19/200 - sertraline 100 mg tab(s) (ZOLOFT) 100 mg ORAL DAILY Roble ribeiro (Kiran) Mis - pantoprazole DR 40 [...] 1 gram tablet, Take 1 tablet by [facility] four times daily., Disp: 30 tablet, Rfl: [...] Approx. 3 cigarettes daily-1 pack every w rosebud Substance Use Topics - Alcohol use: Yes [...] and migraine headache. She was referred to [facility] management but was unable to go [...] health on 03-07-07 [facility] HNO ID: [id number] Normal 020 [place] [facility] Author: Holly PickardRt) Audi [facility] Service: Radiology ( 93369) Author Type: Polishing Machine Operator Type: Allied Health Filed: 06/20/2020 12:04 PM [...] unstable renal function, e.g. those with ac [place] kidney injury, the eGFR may not accurately reflect actual GFR. eGFR- Date Value Ref Range Status 06/19/2020 >60 Final 02/15/2020 >60 Final P.O.C.T. RESULTS: N/A June 20, 2020 TREATMENT: N/A and No Hydration needed. PERIPHERAL IV DATA: Inpatient - refer to [facility] documentation RADIOLOGY DEPARTMENT: CT; Exam(s) Completed: Abdomen/Pelvis SIGNATURE: RT Jada PATIENT NAME: Sally caldwell DATE: June 20, 2020 TIME: 11:59 AM comp metab 1999 pnl serpl on 2020-06-19 Albumin [Mass/Vol] 4.3 3.9-4.9 g/dL Normal 06-19-2020 [facility] (88204) Comment: Order Comment: Specimen Type : BLOOD SPECIMEN Performed By: #### 70322-8 # ###[facility] LABORATORYCLIA [id number] [place] [address] ALP [Catalytic activity/Vol] 110 34-123 U/L Normal 1 0-06-2020 [facility] (00 000) Comment: Order Comment: Specimen Type : BLOOD SPECIMEN Performed By: #### 66626-1 # ###[facility]ORYCLIA [id number] [facility] [place] [address] ALT With P-5'-P [Catalytic 16 7-38 U/L Normal [facility] Medical activity/Vol] [place] (07417) Comment: Order Comment: Specimen Type : BLOOD SPECIMEN Performed By: #### 26014-9 # ###[facility]ORATORYCLIA [id number] [facility] [place] [address] Anion gap [Moles/Vol] 13 9-18 mmol/L Normal 06-19-20 20 [facility] (91398) Comment: Order Comment: Specimen Type : BLOOD SPECIMEN Performed By: #### 83010-2 # ###[facility]ORATORYCLIA [id number] [facility] [place] [place] [address] AST With P-5'-P [Catalytic 19 13-35 U/L Normal [facility] activity/Vol] [place] (05195) Comment: Order Comment: Specimen Type : BLOOD SPECIMEN Performed By: #### 63537-3 # ###[facility]ORYCLIA [id number] [facility] [place] [address] Bilirubin [Mass/Vol] 0.2 0.2-1.3 mg/dL Normal 0 [facility] (10584) Comment: Order Comment: Specimen Type : BLOOD SPECIMEN Performed By: #### 08209-4 # ###[facility]ATORYCLIA [id number] [facility] [place] [place] [address] Calcium [Mass/Vol] 9.1 8.5-10.2 mg/dL Normal 06-19-2020 [facility] (37968) Comment: Order Comment: Specimen Type : BLOOD SPECIMEN Performed By: #### 37918-8 # ###[facility]ORATORYCLIA [id number] [facility] [place] [address] Chloride [Moles/Vol] 102 97-105 mmol/L Normal 0 [facility] (43062) Comment: Order Comment: Specimen Type : BLOOD SPECIMEN Performed By: #### 59271-4 # ###[facility] LABORATORYCLIA [id number] [place] [address] CO2 [Moles/Vol] 22 22-30 mmol/L Normal 06-19-2020 [facility] (96777) Comment: Order Comment: Specimen Type : BLOOD SPECIMEN Performed By: #### 72480-7 # ###[facility] LABORATORYCLIA [id number] [place] [address] Creatinine [Mass/Vol] 0.88 0.58-0.96 mg/dL Normal 06-19-20 20 [facility] (00 000) Comment: Order Comment: Specimen Type : BLOOD SPECIMEN Performed By: #### 27659-7 # ###[facility] LABORATORYCLIA [id number] [place] [address] GFR/1.73 sq M.predicted >60 mL/min/{1.73_m2} Normal 06-19-2020 [facility] MDRD (S/P/Bld) [[facility] rate/Area] (81316) Comment: Order Comment: Specimen Type : BLOOD SPECIMEN Result Comment: >60 eGFR (Estimated GFR) Units o f measure: mL/min/1.73 meters squared eGFR is derived from the ree xpressed MDRD Study equation using the following parameters: serum creatinine, age, gender and race. The creatinine assay has been calibrated to be traceable to IDAL. An eGFR <60 mL/min/1.73m2 for >3 mo nths is consistent with chronic kidney disease. Refer to KDOQI guidelines for clinical interpretation. In patients with unstable renal function, e.g. those with acute k idney injury, the eGFR may n ot accurately reflect actual GFR. Performed By: #### 90055-0 # ###[facility] LABORATORYCLIA [id number] [place] [address] Glucose [Mass/Vol] 100 74-99 mg/dL High 06-19-2020 [facility] (04361) Comment: Order Comment: Specimen Type : BLOOD SPECIMEN Result Comment: The [place] [employer] Association (ADA) provides guidance for cutoff [...] for diagnosis of diabetes. Reference: Standards of [facility] Care in Diabetes 2016, [place] [employer]. Diabetes Care. 2016.39(Suppl 1). Performed By: #### 87447-7 # ###[employer] [facility] LABORATORYCLIA [id number] [facility] [place] [address] Potassium [Moles/Vol] 3.8 3.7-5.1 mmol/L Normal 06-19-20 20 [facility] (00 000) Comment: Order Comment: Specimen Type : BLOOD SPECIMEN Performed By: #### 15842-8 # ###[facility] LABORATORYCLIA [id number] [facility] [place] [address] Protein [Mass/Vol] 7.7 6.3-8.0 g/dL Normal 06-19-2020 [facility] (99090) Comment: Order Comment: Specimen Type : BLOOD SPECIMEN Performed By: #### 24127-3 # ###[place] [facility] LABORATORYCLIA [id number] [facility] [place] [address] Sodium [Moles/Vol] 137 136-144 mmol/L Normal 06-19-2020 [facility] (38142) Comment: Order Comment: Specimen Type : BLOOD SPECIMEN Performed By: #### 67080-8 # ###[employer] [facility] LABORATORYCLIA [id number] [facility] [place] [address] Urea nitrogen [Mass/Vol] 14 7-21 mg/dL Normal 06-19 [facility] (19827) Comment: Order Comment: Specimen Type : BLOOD SPECIMEN Performed By: #### 54220-9 # ###[facility]ORATORYCLIA [id number] [facility] [place] [address] cbc w auto diff bld on 2020-06-19 Basophils (Bld) [#/Vol] 0.08 <0.11 k/uL Normal 2019 [facility] (00 000) Comment: Order Comment: Specimen Type : BLOOD SPECIMEN Performed By: #### 76713-3 # ###[facility]ORATORYCLIA [id number] [facility] [place] [address] Basophils/100 WBC (Bld) 0.7 % Normal 2019 [facility] (76321) Comment: Order Comment: Specimen Type : BLOOD SPECIMEN Performed By: #### 19359-4 # ###[facility]ORATORYCLIA [id number] [place] [address] Differential cell count method Auto Normal 06-19-2020 [facility] (Bld) Center (00 000) Comment: Order Comment: Specimen Type : BLOOD SPECIMEN Performed By: #### 12104-3 # ###[facility]ORATORYCLIA [id number] [place] [address] Eosinophils (Bld) [#/Vol] 0.71 <0.46 k/uL High [facility] (00 000) Comment: Order Comment: Specimen Type : BLOOD SPECIMEN Performed By: #### 30931-7 # ###[facility] LABORATORYCLIA [id number] [place] [address] Eosinophils/100 WBC (Bld) 6.0 % Normal [facility] (38771) Comment: Order Comment: Specimen Type : BLOOD SPECIMEN Performed By: #### 01519-2 # ###[facility]ORATORYCLIA [id number] [place] [address] Erythrocyte distribution 13.3 11.5-15.0 % Normal 06-19 [facility] (RBC) [Ratio] Center (69759) Comment: Order Comment: Specimen Type : BLOOD SPECIMEN Performed By: #### 59139-8 # ###[facility]ORATORYCLIA [id number] [place] [address] Hematocrit (Bld) [Volume 37.8 36.0-46.0 % Normal 06-19 [facility]] Center (00 000) Comment: Order Comment: Specimen Type : BLOOD SPECIMEN Performed By: #### 89358-7 # ###[facility] LABORATORYCLIA [id number] [facility] [place] [address] Hemoglobin (Bld) 12.1 11.5-15.5 g/dL Normal 06-19-2020 [facility] [Mass/Vol] [place] (0 0000) Comment: Order Comment: Specimen Type : BLOOD SPECIMEN Performed By: #### 36300-9 # ###[facility]ORATORYCLIA [id number] [place] [address] IMMATURE GRAN % 1.5 % Normal 06-19-2020 [facility] (25131) Comment: Order Comment: Specimen Type : BLOOD SPECIMEN Performed By: #### 76133-3 # ###[facility] LABORATORYCLIA [id number] [place] [address] IMMATURE GRAN ABS 0.18 <0.10 k/uL High 06-19-2020 [facility] (87227) Comment: Order Comment: Specimen Type : BLOOD SPECIMEN Result Comment: Differential confirmed by visual scan of peripheral blood smear slide Performed By: #### 61030-4 # ###[facility] LABORATORYCLIA [id number] [place] [address] Lymphocytes (Bld) [#/Vol] 4.79 1.00-4.00 k/uL High [facility] (00 000) Comment: Order Comment: Specimen Type : BLOOD SPECIMEN Performed By: #### 12488-5 # ###[facility] LABORATORYCLIA [id number] [place] [address] Lymphocytes/100 WBC (Bld) 40.6 % Normal [facility] (21960) Comment: Order Comment: Specimen Type : BLOOD SPECIMEN Performed By: #### 89102-6 # ###[facility] LABORATORYCLIA [id number] [place] [address] MCH (RBC) [Entitic mass] 28.6 26.0-34.0 pg Normal 06-19 [facility] () Comment: Order Comment: Specimen Type : BLOOD SPECIMEN Performed By: #### 55643-7 # ###[facility] LABORATORYCLIA [id number] [facility] [place] [address] MCHC (RBC) [Mass/Vol] 32.0 30.5-36.0 g/dL Normal 06-19-20 [facility] () Comment: Order Comment: Specimen Type : BLOOD SPECIMEN Performed By: #### 28736-6 # ###[facility] LABORATORYCLIA [id number] [facility] [place] [address] MCV (RBC) [Entitic vol] 89.4 80.0-100.0 fL Normal 06-19 [facility] () Comment: Order Comment: Specimen Type : BLOOD SPECIMEN Performed By: #### 57103-4 # ###[facility] LABORATORYCLIA [id number] [facility] [place] [address] Monocytes (Bld) [#/Vol] 0.53 <0.87 k/uL Normal 2019 [facility] () Comment: Order Comment: Specimen Type : BLOOD SPECIMEN Performed By: #### 36616-8 # ###[facility] LABORATORYCLIA [id number] [facility] [place] [place] [address] Monocytes/100 WBC (Bld) 4.5 % Normal 2019 [facility] (72754) Comment: Order Comment: Specimen Type : BLOOD SPECIMEN Performed By: #### 04594-7 # ###[facility] LABORATORYCLIA [id number] [facility] [place] [address] Neutrophils (Bld) [#/Vol] 5.51 1.45-7.50 k/uL Normal [facility] () Comment: Order Comment: Specimen Type : BLOOD SPECIMEN Performed By: #### 94739-0 # ###[facility] LABORATORYCLIA [id number] [facility] [place] [address] Neutrophils/100 WBC (Bld) 46.7 % Normal [facility] (37805) Comment: Order Comment: Specimen Type : BLOOD SPECIMEN Performed By: #### 70971-8 # ###[facility] LABORATORYCLIA [id number] [facility] [place] [place] [address] Nucleated RBC (Bld) <0.01 <0.01 10*3/uL Normal 06-19-2020 [facility] [#/Vol] [place] (00 000) Comment: Order Comment: Specimen Type : BLOOD SPECIMEN Performed By: #### 76734-9 # ###[facility]ORATORYCLIA [id number] [facility] [place] [address] Nucleated RBC/100 WBC 0.0 0.0 /100 WBC Normal 06-19-20 [facility] (Bld) [Ratio] [place] ([address]) Comment: Order Comment: Specimen Type : BLOOD SPECIMEN Performed By: #### 84218-3 # ###[facility] LABORATORYCLIA [id number] [facility] [place] [address] Platelet mean volume (Bld) 10.4 9.0-12.7 fL Normal [facility] [Entitic vol] [place] (09834) Comment: Order Comment: Specimen Type : BLOOD SPECIMEN Performed By: #### 02034-1 # ###[facility] LABORATORYCLIA [id number] [facility] [place] [place] [address] Platelets (Bld) [#/Vol] 324 150-400 k/uL Normal 2019 [facility] (00 000) Comment: Order Comment: Specimen Type : BLOOD SPECIMEN Performed By: #### 34112-5 # ###[facility] LABORATORYCLIA [id number] [facility] [place] [address] RBC (Bld) [#/Vol] 4.23 3.90-5.20 m/uL Normal 06-19-2020 [facility] (32828) Comment: Order Comment: Specimen Type : BLOOD SPECIMEN Performed By: #### 64624-9 # ###[facility] LABORATORYCLIA [id number] [facility] [place] [address] RED CELL MORPH Normal Normal 06-19-2020 [facility] (58769) Comment: Order Comment: Specimen Type : BLOOD SPECIMEN Performed By: #### 25782-0 # ###[facility] LABORATORYCLIA [id number] [facility] [address] WBC (Bld) [#/Vol] 11.80 3.70-11.00 k/uL High 06-19-2020 [facility] (27168) Comment: Order Comment: Specimen Type : BLOOD SPECIMEN Performed By: #### 23486-0 # ###[facility] LABORATORYCLIA [id number] [facility] [address] cnpn on 2020-06-15 CNPN Telephone (AGGENS6) Normal 06-15-2020 [facility] SALLY MCGREGOR ([id number]) 1980 F Medical Date Time Provider Department Center 06/15/20 TATY PEREA (REC THERAPIST, GAS STOVE SERVICER HELPER) AGGENS6 (74059) During your visit today, we recorded the following informati on about you: Taty Perea APRN.GAS STOVE SERVICER HELPER 06/15/2020 11:28 AM Signed Patient called the [...] have transportation. She refuses to go to [facility] ER to be seen because they treat her poorly. I will send an RX to her pharmacy for an antibiotic. She is to notify the office if her symptoms worsen or do not improve. Taty Perea APRN, GAS STOVE SERVICER HELPER Allergies As of Date: 06/15/2020 Noted Allergy [...] 06/15/20 progress on 2020-05 PROGRESS HNO ID: [id number] Normal 06-13-2020 [facility] Author: Kimmie Jennings General Service: General Surgery Medical Author Type: Resident Center Type: Progress Notes (94090) Filed: 06/13/2020 6:55 AM Note Text: Attestation signed by Mala Almendarez at 06/18/2020 1:28 PM I saw and evaluated the patient. Discussed with the reside nt and agree with resident's findings and plan as documented in the resident's note. [facility] Progress Note SERVICE DATE: 06/13/2020 [facility] Service Pager: For questions or concerns Mon-Fri 6a-5p please page [phone]. After 5pm and on Weekends and Holidays, please page [phone]. SUBJECTIVE: Patient stayed overnight due to uncontrolled [...] 0659 06/13/20 07 - 06/14/20 0659 Shift 4308-7636 8103-0366 3929-9919 24 Hour Total 9411-3699 1165-7982 3206-7687 24 Hour Total INTAKE PO 240 200 [...] questions or concerns Mon-Thu 6a-5p please page [phone]. After 5pm and on Weekends and Holidays, please page [phone] if in ICU or [phone] if on RNF. PROGRESS HNO ID: [id number] Normal 06-13-2020 [facility] Author: Mer (Rn) VIN Bejarano General Service: [...] plan of care on PLAN HNO ID: [id number] Normal 06-13-2020 [facility] Author: Aureliano Dietz DO General CARE [...] Phosphate [Mass/Vol] 3.9 2.7-4.8 mg/dL Normal 0 [facility] (85160) Comment: Performed By: #### URIN2 ### # [facility] [address] [place] [address] mdrd gfr on 2020-05 GFR/1.73 sq M >60 >60mL/min/1.73m2 mL/min/{1.73_m2} Normal [facility] non-blacks MDRD (000 00) (S/P/Bld) [Vol rate/Area] Comment: Result Comment: If the patie nt is , multiply the result by 1.210. Performed By: #### GFR #### [address] [address] magnesium blood on 2020-06-13 Magnesium [Mass/Vol] 2.1 1.7-2.3 mg/dL Normal 0 [facility] (99468) Comment: Performed By: #### URIN2 ### # [address] [address] hemogram on 2020-05 Erythrocyte distribution 13.4 11.7-14.4 % Normal 06-13 [facility] width (RBC) [Ratio] System (66596) Comment: Performed By: #### URIN2 ### # [facility] [address] [place], [place] [address] Hematocrit (Bld) [Volume 37.9 34.1-44.9 % Normal 06-13 [facility] fraction] System (00 000) Comment: Performed By: #### URIN2 ### # [address] [address] Hemoglobin (Bld) 12.1 11.2-15.7 g/dL Normal 06-13-2020 [facility] [Mass/Vol] System (0 0000) Comment: Performed By: #### URIN2 ### # [facility] [address] [place], [place] [address] MCH (RBC) [Entitic mass] 28.9 25.6-32.2 pg Normal 06-13 [facility] (00 000) Comment: Performed By: #### URIN2 ### # [facility] [address] [place], [place] [address] MCHC (RBC) [Mass/Vol] 31.9 31.6-34.8 % Normal 06-13-20 20 [facility] (19238) Comment: Performed By: #### URIN2 ### # [facility] [address] [place], [place] [address] MCV (RBC) [Entitic vol] 90.7 79.4-94.8 fl Normal 2019 [facility] (00 000) Comment: Performed By: #### URIN2 ### # [facility] [address] [place], [place] [address] Platelet mean volume (Bld) 10.9 9.4-12.[address] [facility] [Entitic vol] System (35812) Comment: Performed By: #### URIN2 ### # [facility] [address] [place], [place] [address] Platelets (Bld) [#/Vol] 236 182-369 thou/cmm Normal 2019 [facility] (00 000) Comment: Performed By: #### URIN2 ### # [facility] [address] [place], [place] [address] RBC (Bld) [#/Vol] 4.18 3.93-5.22 mil/cmm Normal 06-13-2020 [email or web address] [facility] (00 000) Comment: Performed By: #### URIN2 ### # [facility] [address] [place], [place] [address] RDW SD 44.2 36.4-46.3 fl Normal 06-13-2020 [facility] (58578) Comment: Performed By: #### URIN2 ### # [facility] [address] [place], [place] [address] WBC (Bld) [#/Vol] 7.45 3.98-10.04 thou/cmm Normal 06-13-2020 [facility] (00 000) Comment: Performed By: #### URIN2 ### # [facility] [address] [place] [address] comprehensive metabolic panel on 2020-06-13 Albumin [Mass/Vol] 4.1 3.9-4.9 g/dL Normal 06-13-2020 [facility] (74041) Comment: Performed By: #### URIN2 ### # [facility] [address] [place] [address] ALP [Catalytic activity/Vol] 98 34-123 U/L Normal 0 06-13-2020 [facility] (00 000) Comment: Performed By: #### URIN2 ### # [facility] [address] [place] [address] ALT [Catalytic activity/Vol] 73 7-38 U/L High 0 06-13-2020 [facility] (92298) Comment: Performed By: #### URIN2 ### # [facility] [address] [place] [address] Anion gap [Moles/Vol] 10 9-18 mmol/L Normal 06-13-20 20 [facility] (98318) Comment: Performed By: #### URIN2 ### # [facility] [address] [place] [address] AST [Catalytic activity/Vol] 69 13-35 U/L High 0 06-13-2020 [facility] (06377) Comment: Performed By: #### URIN2 ### # [facility] [address] [place] [id number] Bilirubin [Mass/Vol] 0.6 0.2-1.3 mg/dL Normal 0 [facility] (92051) Comment: Performed By: #### URIN2 ### # [facility] [address] [place] [id number] Calcium [Mass/Vol] 9.1 8.5-10.2 mg/dL Normal 06-13-2020 [facility] (38653) Comment: Performed By: #### URIN2 ### # [facility] [address] [place], [place] [address] Chloride [Moles/Vol] 101 97-105 mmol/L Normal 0 [facility] (97391) Comment: Performed By: #### URIN2 ### # [facility] [address] [place], [place] [address] CO2 Blood 27 22-30 mmol/L Normal 06-13-2020 [facility] (17911) Comment: Performed By: #### URIN2 ### # [facility] [address] [place], [place] [address] Creatinine [Mass/Vol] 0.87 0.58-0.96 mg/dL Normal 06-13-20 [facility] (00 000) Comment: Performed By: #### URIN2 ### # [facility] [address] [place], [place] [address] Glucose [Mass/Vol] 94 74-99 mg/dL Normal 06-13-2020 [facility] (96703) Comment: Result Comment: The [place] Diabetes Association (ADA) provides guidance for cutoff [...] Standards of Medical Care in Diabetes 2016; [place] [employer] Association. Diabetes Care. 2016;39(Suppl 1). Performed By: #### URIN2 ### # [facility] [address] [place], [place] [address] Potassium [Moles/Vol] 3.8 3.7-5.1 mmol/L Normal 06-13-20 [facility] (00 000) Comment: Performed By: #### URIN2 ### # [facility] [address] [place], [place] [address] Protein [Mass/Vol] 7.3 6.3-8.0 g/dL Normal 06-13-2020 [facility] (41997) Comment: Performed By: #### URIN2 ### # [facility] [address] [place], [place] [address] Sodium [Moles/Vol] 138 136-144 mmol/L Normal 06-13-2020 [facility] (52454) Comment: Performed By: #### URIN2 ### # [facility] [address] [place], [place] [address] Urea nitrogen [Mass/Vol] 7 7-21 mg/dL Normal 06-13 [facility] (73874) Comment: Performed By: #### URIN2 ### # [facility] [address] [place], [place] [address] case managem on CASE MANAGEM HNO ID: [id number] Normal 06-13-20 [facility] Author: Britni PickardRn) VIN Grimaldo [facility] Service: Care Management (54789) Author Type: Registered Nurse Type: Care Mgt [...] Name/Phone: Floor RN TRANSPORTATION ARRANGEMENTS: Transportation Arrangements: [employer] (through [employer]) [employer]: [phone] Trip #: [id number] Needs Prior to Discharge: Ready for Discharge Chart reviewed. Discharge held yesterday due to uncontrolled pain. Spoke with patient. Plan is for discharge today. Awaiting di awarfausto orders. Discharge disposition= Home with follow up care. SIGNATURE: Britni Grimaldo RN PATIENT NAME: Sally james DATE: June 13, 2020 TIME: 11:00 AM PAGER/CONTACT #: [phone] progress on 2020-05 PROGRESS HNO ID: [id number] Normal 06-12-2020 [place] Author: Nancy [facility] Service: General Surgery Medical Author Type: Resident Center Type: Progress Notes (07660) Filed: 06/12/2020 7:57 AM Note Text: Attestation signed by Mala Almendarez at 06/12/2020 9:28 PM Attending Note I personally saw and examined the patient. I reviewed the resident's note. I agree with the resident's assessment and plan with the maureen strong revisions and/or additions: Still with severe pain. Will hold DC today and poss dc [facility] Signature: Mala Almendarez MD Date: 06/12/2020 Time: 9:28 PM [facility] Progress Note SERVICE DATE: 06/12/2020 [facility] Service Pager: For questions or concerns Mon-Fri 6a-5p please page [phone]. After 5pm and on Weekends and Holidays, please page [phone]. SUBJECTIVE: C/o significant pain that prevents her [...] 06/11/20699 - 06/12/2065806/12/20699 - 06/13/20 0659 Shift [phone] 4132-6579 2521-0497 24 Hour Total 0103-9303 6126-1347 6255-0965 24 Hour Total INTAKE PO 100 100 PO 100 100 IV 1900 1900 OR Crystalloid intake (mL) 1000 1000 Volume (mL) (lactated ringers infusion) 900 900 Shift Total 6191 665 5849 OUTPUT Urine 589 141 4598 Void (ml) 600 600 OR Urine Output 500 500 Urine Not Saved. 1 x 3 x 4 x Blood 50 50 Estimated Blood loss 50 50 Shift Total 886 785 2162 Weight (kg) 89.6 89.6 89.6 89.6 89.6 [...] care on PLAN OF CARE HNO ID: [id number] Normal 06-12-20 [facility] Author: Page Burgess (Operations Dispatcher) [place] ([address]) Service: Pharmacy Author Type: Pharmacist Type: Plan [...] from Discharge Medication Li st. Page Burgess, Operations Dispatcher June 12, 2020 10:36 AM Medication List [...] Your Medications These medications were sent to [facility] [address] [place] [address] Hours: Thursday-Thursday, 8am-6:30pm ? oxyCODONE IR 5 mg immediate release tablet phosphorous blood o n 2020-06-12 Phosphate [Mass/Vol] 3.4 2.7-4.8 mg/dL Normal 0 [facility] ([address]) Comment: Performed By: #### CBCD1 ### # [place] [address] magnesium blood on 2020-06-12 Magnesium [Mass/Vol] 1.5 1.7-2.3 mg/dL Low 0 [employer] [facility] (87335) Comment: Performed By: #### CBCD1 ### # [place] [address] hemogram on 2020-05 Erythrocyte distribution 13.2 11.7-14.4 % Normal 06-12 [facility] width (RBC) [Ratio] System (21984) Comment: Performed By: #### CBCD1 ### # [place] [address] Hematocrit (Bld) [Volume 32.9 34.1-44.9 % Low 06-12 [employer] fraction] System (00 000) Comment: Performed By: #### CBCD1 ### # [place] [address] Hemoglobin (Bld) [Mass/Vol] 10.5 11.2-15.7 g/dL Low [facility] (00 000) Comment: Performed By: #### CBCD1 ### # [place] [address] MCH (RBC) [Entitic mass] 29.2 25.6-32.2 pg Normal 06-12 [facility] (00 000) Comment: Performed By: #### CBCD1 ### # [address], [place] [address] MCHC (RBC) [Mass/Vol] 31.9 31.6-34.8 % Normal 06-12-20 20 [facility] (53893) Comment: Performed By: #### CBCD1 ### # [facility] [address] [place], [place] [address] MCV (RBC) [Entitic vol] 91.4 79.4-94.8 fl Normal 2019 [facility] (00 000) Comment: Performed By: #### CBCD1 ### # [facility] [address] [place] [id number] Platelet mean volume (Bld) 11.5 9.4-12.[address] [facility] [Entitic vol] System (78682) Comment: Performed By: #### CBCD1 ### # [facility] [address] [place], [place] [address] Platelets (Bld) [#/Vol] 182 182-369 thou/cmm Normal 2019 [facility] (00 000) Comment: Performed By: #### CBCD1 ### # [facility] [address] [place], [place] [address] RBC (Bld) [#/Vol] 3.60 3.93-5.22 mil/cmm Low 06-12-2020 [facility] (76499) Comment: Performed By: #### CBCD1 ### # [facility] [address] [place], [place] [address] RDW SD 44.5 36.4-46.3 fl Normal 06-12-2020 [facility] (58538) Comment: Performed By: #### CBCD1 ### # [facility] [address] [place], [place] [address] WBC (Bld) [#/Vol] 7.04 3.98-10.04 thou/cmm Normal 06-12-2020 [facility] (00 000) Comment: Performed By: #### CBCD1 ### # [facility] [address] [place], [place] [address] case managem on 202 CASE MANAGEM HNO ID: [id number] Normal 06-12-20 [facility] Author: Britni (Rn) [facility] Service: Care Management (68538) Author Type: Registered Nurse Type: Care Mgt [...] 12, 2020 TIME: 9:18 AM PAGER/CONTACT #: [phone] basic metabolic panel on 2020-06-12 Anion gap [Moles/Vol] 8 9-18 mmol/L Low 06-12-20 20 [facility] (21782) Comment: Performed By: #### CBCD1 ### # [facility] [address] [place], [place] [address] Calcium [Mass/Vol] 8.0 8.5-10.2 mg/dL Low 06-12-2020 [facility] (94535) Comment: Performed By: #### CBCD1 ### # [facility] [address] [place], [place] [address] Chloride [Moles/Vol] 104 97-105 mmol/L Normal 0 [facility] (27978) Comment: Performed By: #### CBCD1 ### # [facility] [address] [place], [place] [address] CO2 Blood 26 22-30 mmol/L Normal 06-12-2020 [facility] (43436) Comment: Performed By: #### CBCD1 ### # [facility] [address] [place], [place] [address] Creatinine [Mass/Vol] 0.87 0.58-0.96 mg/dL Normal 06-12-20 [facility] (00 000) Comment: Performed By: #### CBCD1 ### # [facility] [address] [place], [place] [address] Glucose [Mass/Vol] 83 74-99 mg/dL Normal 06-12-2020 [facility] (03009) Comment: Result Comment: The [place] Diabetes Association (ADA) provides guidance for cutoff [...] Standards of Medical Care in Diabetes 2016; [place] [employer]. Diabetes Care. 2016;39(Suppl 1). Performed By: #### CBCD1 ### # [facility] [address] [place], [place] [address] Potassium [Moles/Vol] 3.4 3.7-5.1 mmol/L Low 06-12-20 20 [facility] (74612) Comment: Performed By: #### CBCD1 ### # [facility] [address] [place], [place] [address] Sodium [Moles/Vol] 138 136-144 mmol/L Normal 06-12-2020 [facility] (79675) Comment: Performed By: #### CBCD1 ### # [facility] [address] [place], [place] [address] Urea nitrogen [Mass/Vol] 6 7-21 mg/dL Low 06-12 [facility] (54680) Comment: Performed By: #### CBCD1 ### # [facility] [address] [place], [place] [address] type and screen on 2020-06-11 ABO group Nom (Bld) O Normal 06-11-2020 [facility] (25096) Comment: Performed By: #### CBCD1 ### # [place] [address] Comment See Below Normal 06-11-2020 [facility] ([address]) Comment: Result Comment: Screen &/or Xmatch expires in 3 days at 12 midnight. Redraw patient at that time. Performed By: #### CBCD1 ### # [place] [address] RH Type Positive Normal 06-11-2020 [facility] ([address]76) Comment: Performed By: #### CBCD1 ### # [place] [address] surgical tissue exam on 2020-06-11 Surgical Tissue Exam Test performed at [facility] Normal 06-11-2020 [facility] [address] [place] [address] ([address]) NAME: SALLY MCGREGOR REQUESTING: MALA ALMENDAREZ MD [...] are not see n on the specimen. Molder Feeder sections are submitted in formalin in 4 cassettes. LETICIA/chadd VILLASEÑOR M.D., PATHOLOGIST (Electronic signature on file) Signed out: 06/13/2020 16:48 PRINTED: 06/13/2020 Page 1 of 1 Comment: Performed By: #### URIN2 ### # [place] [address] progress on 2020-05 PROGRESS HNO ID: [id number] Normal 06-11-2020 [place] Author: Kimmie Topetem General Service: General Surgery Medical Author Type: Resident Center Type: Progress Notes (03409) Filed: 06/11/2020 7:03 AM Note Text: Attestation [...] questions or concerns Mon-Fri 6a-5p please page [phone]. After 5pm and on Weekends and Holidays, please page [phone]. SUBJECTIVE: NAEON. Afebrile. Patient resting in bed [...] - 06/11/20 0606/11/20699 - 06/12/20 0659 Shift 8341-8809 4111-0375 9411-2557 24 Hour Total 0368-2908 2330-4291 2239-0124 24 Hour Total INTAKE PO 600 600 [...] questions or concerns Thu-Thu 6a-5p please page [phone]. After 5pm and on Weekends and Holidays, please page [phone] if in ICU or [phone] if on RNF. operative no on 202 OPERATIVE NO HNO ID: [id number] Normal 06-11-20 [facility] Author: Mala Eddy [facility] Service: General Surgery ([id number]) Author Type: Physician Type: Operative Report Filed: 06/11/2020 1:39 PM Note Text: [facility] - Operative Report SALLY MCGREGOR : 1980 AGE: 39. SEX: F PATIENT TYPE: I HOSP SVC: GENS LOCATION: [facility] ATTENDING PHYSICIAN: MALA ALMENDAREZ CSN NUMBER: [id number] DATE OF SURGERY/PROCEDURE: 06/11/2020 INCISION/PROCEDURE START TIME: 10:51 AM INCISION CLOSE/PROCEDURE END TIME: 11:47 AM PREOPERATIVE DIAGNOSIS: Symptomatic liver cyst. POSTOPERATIVE DIAGNOSIS: Symptomatic liver cyst. SURGEON: Mala Almendarez MD GENERATING PLANT SUPERINTENDENT: None. SURGERY/PROCEDURE: Laparoscopic partial right hepatic lobect [...] CLASS: 2, clean, contaminated. Mala Almendarez MD NSA:[id number] /[id number] nursing prog on NURSING PROG HNO ID: [id number] Normal 06-11-20 20 [facility] Author: Garo PickardRnJoao Jackson RN [facility] Service: ? ([id number]) Author Type: Registered Nurse Type: Nursing Progress Note Filed: 06/11/2020 6:25 PM Note Text: Nursing Progress Note Patient Name: Sally Mcgregor Patient Location: [place] [id number]- Patient refusing IV fluids, states we can restart them when she goes to bed. Informed surgery team. This note was completed by: Garo Jackson RN hemogram on 2020-05 Erythrocyte distribution 13.0 11.7-14.4 % Normal 06-11 [facility] width (RBC) [Ratio] System (32819) Comment: Performed By: #### CBCD1 ### # [facility] [address] [place] [id number] Hematocrit (Bld) [Volume 35.0 34.1-44.9 % Normal 06-11 [facility] fraction] System (00 000) Comment: Performed By: #### CBCD1 ### # [facility] [address] [place], [place] [address] Hemoglobin (Bld) 11.4 11.2-15.7 g/dL Normal 06-11-2020 [facility] [Mass/Vol] System (0 0000) Comment: Performed By: #### CBCD1 ### # [facility] [address] [place], [place] [address] MCH (RBC) [Entitic mass] 29.2 25.6-32.2 pg Normal 06-11 [facility] (00 000) Comment: Performed By: #### CBCD1 ### # [facility] [address] [place], [place] [address] MCHC (RBC) [Mass/Vol] 32.6 31.6-34.8 % Normal 06-11-20 20 [facility] (21859) Comment: Performed By: #### CBCD1 ### # [facility] [address] [place], [place] [address] MCV (RBC) [Entitic vol] 89.5 79.4-94.8 fl Normal 2019 [facility] (00 000) Comment: Performed By: #### CBCD1 ### # [facility] [address] [place], [place] [address] Platelet mean volume (Bld) 11.1 9.4-12.[address] [facility] [Entitic vol] System (08685) Comment: Performed By: #### CBCD1 ### # [facility] [address] [place], [place] [address] Platelets (Bld) [#/Vol] 229 182-369 thou/cmm Normal 2019 [facility] (00 000) Comment: Performed By: #### CBCD1 ### # [facility] [address] [place], [place] [address] RBC (Bld) [#/Vol] 3.91 3.93-5.22 mil/cmm Low 06-11-2020 [email or web address] [email or web address] (42960) Comment: Performed By: #### CBCD1 ### # [facility] [address] [place], [place] [address] RDW SD 42.5 36.4-46.3 fl Normal 06-11-2020 [facility] (54979) Comment: Performed By: #### CBCD1 ### # [facility] [address] [place], [place] [address] WBC (Bld) [#/Vol] 6.54 3.98-10.04 thou/cmm Normal 06-11-2020 [facility] (00 000) Comment: Performed By: #### CBCD1 ### # [facility] [address] [place], [place] [address] case managem on CASE MANAGEM HNO ID: [id number] Normal 06-11-20 [facility] Author: Britni PickardRn) VIN Grimaldo [facility] Service: Care Management ([id number]) Author Type: Registered Nurse Type: Care Mgt [...] 11, 2020 TIME: 9:10 AM PAGER/CONTACT #: [phone] anes preop on 06-11 ANES PREOP HNO ID: [id number] Normal 06-11-2020 [facility]: [facility] Service: Anesthesiology ([id number]) Author Type: Physician Type: Anesthesia PreOp Filed: [...] Benign liver cyst 05/24/2010 CT scan at [facility] 11/2009 and 04/2010 showe 4 mm increase in size . No pain. No elevated LFTs on 03/11/2010. - Calculus of kidney 05/17/[address] Nicolas: Hospitalized age 20, and again later -- no procedures so far ([facility], [facility], 1995 [facility]) - Cancer (HCC) - Diverticulosis - Dysmenorrhea [...] Approx. 3 cigarettes daily-1 pack every w rosebud Substance Use Topics - Alcohol use: Yes [...] INTRAVENOUS q 3 H PRN Nigel (Res) Brule 1 mg at 06/11/20 0536 - [MAR Hold due to Transfer] NaCl 0.9% iv infusion 125 mL/hr INTRAVENOUS CONTINUOUS Nigel (Res) Brule 125 mL/hr at 06/10/20 2248 1 25 [...] June 11, 2020 TIME: 9:49 AM CSN: [id number] anes post on 06-11 ANES POST HNO ID: [id number] Normal 06-11-2020 [facility] Author: Edwin Sesay [place] ([id number]) Service: Anesthesiology Author Type: Physician Type: Anesthesia [...] #: progress on 2020-05 PROGRESS HNO ID: [id number] Normal 06-10-2020 [facility] Author: Mer PickardRnJoao Bejarano RN [place] ([id number]) Service: Nursing Author Type: Registered Nurse Type: [...] resident Kimmie was notified. PROGRESS HNO ID: [id number] Normal 06-10-2020 [facility] Author: Kimmie Jennings [place] ([id number]) Service: General Surgery Author Type: Resident Type: Progress Notes Filed: 06/10/2020 7:29 AM Note Text: Attestation signed by Johnnie Reynoso at 06/10/2020 2:40 P M I saw and evaluated the patient. Discussed with the reside nt and agree with resident's findings and plan as documented in the resident's note. For surgery tomorrow. Still complaining of pain. Elective General Surgery Progress Note SERVICE DATE: 06/10/2020 Elective General Surgery Service Pager: For questions or concerns Mon-Fri 6a-5p please page [phone]. After 5pm and on Weekends and Holidays, please page [phone]. SUBJECTIVE: NAEON. Afebrile. Patient resting in bed [...] 0659 06/10/20 0700 - 06/11/20 0659 Shift 9365-8536 3738-0129 0990-2967 24 Hour Total 9493-7588 9088-2725 9514-7564 24 Hour Total INTAKE PO 113 450 2304 PO 547 312 4491 Shift Total 756 674 5525 OUTPUT Urine Urine Not Saved. 2 x [...] questions or concerns Thu-Thu 6a-5p please page [phone]. After 5pm and on Weekends and Holidays, please page [phone] if in ICU or [phone] if on RNF. PROGRESS HNO ID: [id number] Normal 06-10-2020 [facility] Medical Author: Mer PickardRnJoao Bejarano RN [place] ([id number]) Service: Nursing Author Type: Registered Nurse Type: [...] Phosphate [Mass/Vol] 4.2 2.7-4.8 mg/dL Normal 0 [facility] (08880) Comment: Performed By: #### CBCD1 ### # [address] [address] magnesium blood on 2020-06-10 Magnesium [Mass/Vol] 1.8 1.7-2.3 mg/dL Normal 0 [facility] (27031) Comment: Performed By: #### CBCD1 ### # [address] [address] coronavirus 2019 on 2020-06-10 COVID 19 Result CERTIFIED NURSE OPERATING ROOM Negative CORNEG Normal 06-10-2020 [facility] (50779) Comment: Result Comment: Negative for COVID19 (SARS CoV2) by PCR. This test was developed and its performance characteristics determined by [facility] [place]. This test has bee n authorized by [...] issued on November 12, 2019. Performing Laboratory: [facility] [address] [place] [address] Performed By: #### CBCD1 ### # [address] [address] basic metabolic panel on 2020-06-10 Anion gap [Moles/Vol] 10 9-18 mmol/L Normal 06-10-20 20 [facility] (82646) Comment: Performed By: #### CBCD1 ### # [address] [address] Calcium [Mass/Vol] 9.2 8.5-10.2 mg/dL Normal 06-10-2020 [facility] (34222) Comment: Performed By: #### CBCD1 ### # [facility] [address] [place], [place] [address] Chloride [Moles/Vol] 102 97-105 mmol/L Normal 0 [facility] (81365) Comment: Performed By: #### CBCD1 ### # [facility] [address] [place], [place] [address] CO2 Blood 27 22-30 mmol/L Normal 06-10-2020 [facility] (53982) Comment: Performed By: #### CBCD1 ### # [facility] [address] [place], [place] [address] Creatinine [Mass/Vol] 0.90 0.58-0.96 mg/dL Normal 06-10-20 20 [facility] (00 000) Comment: Performed By: #### CBCD1 ### # [facility] [address] [place], [place] [address] Glucose [Mass/Vol] 105 74-99 mg/dL High 06-10-2020 [facility] (42825) Comment: Result Comment: The [place] Diabetes Association (ADA) provides guidance for cutoff [...] Standards of Medical Care in Diabetes 2016; [place] Diabetes Association. Diabetes Care. 2016;39(Suppl 1). Performed By: #### CBCD1 ### # [facility] [address] [place], [place] [address] Potassium [Moles/Vol] 3.7 3.7-5.1 mmol/L Normal 06-10-20 [facility] (00 000) Comment: Performed By: #### CBCD1 ### # [facility] [address] [place], [place] [address] Sodium [Moles/Vol] 139 136-144 mmol/L Normal 06-10-2020 [facility] (07826) Comment: Performed By: #### CBCD1 ### # [facility] [address] [place], [place] [address] Urea nitrogen [Mass/Vol] 8 7-21 mg/dL Normal 06-10 [facility] (38693) Comment: Performed By: #### CBCD1 ### # [facility] [address] [place] [id number] allied health on 03-06-27 ALLIED HNO ID: [id number] Normal 06-10-2020 [facility] Author: Chaplain Suarez (Chaplain) General Service: Spiritual Care Medical Author Type: [facility] Type: [facility] ([id number]) Filed: 06/10/2020 7:39 PM Note Text: SPIRITUALCARE Spiritual Care Visit- Brief Note Name: Sally Mcgregor Date: June 10, 2020 Notes: Pre-surgery Patient Nothing needed tonight. [facility] Signature: Chaplain Erick To contact the Spiritual Care Department: Please call [phone] or [place] the On-Call [place] [phone] Thank you for the opportunity to be of service. This is an electronically created document. IF PRINTED, PLEASE DO NOT REMOVE FROM THE CHART OR MODIFY WI INTED COPY. progress on 2020-05 PROGRESS HNO ID: [id number] Normal 06-09-2020 [place] Author: Kimmie Jennings General Service: General Surgery Medical Author Type: Resident Center Type: Progress Notes ([id number]) Filed: 06/09/2020 7:14 AM Note Text: Attestation [...] questions or concerns Thu-Thu 6a-5p please page [phone]. After 5pm and on Weekends and Holidays, please page [phone]. SUBJECTIVE: NAEON. Afebrile. Patient resting in bed [...] - 06/09/20 0606/09/20699 - 06/10/20 0659 Shift 4062-3304 1460-6443 5460-2013 24 Hour Total 3582-2717 1532-6355 2203-5485 24 Hour Total INTAKE Shift Total OUTPUT [...] (TYLENOL) 975 mg ORAL q 6 H WI N - oxyCODONE IR 5-10 mg tab(s) [...] in ICU or 2179 if on RNF. hemogram on 2020-05 Erythrocyte distribution 13.2 11.7-14.4 % Normal 06-09 [facility] width (RBC) [Ratio] System (33017) Comment: Performed By: #### GFR #### [address] [address] Hematocrit (Bld) [Volume 33.7 34.1-44.9 % Low 06-09 [facility]] System (00 000) Comment: Performed By: #### GFR #### [facility] [address] [place], [place] [address] Hemoglobin (Bld) [Mass/Vol] 10.6 11.2-15.7 g/dL Low [facility] (00 000) Comment: Performed By: #### GFR #### [place] [address] MCH (RBC) [Entitic mass] 28.8 25.6-32.2 pg Normal 06-09 [facility] (00 000) Comment: Performed By: #### GFR #### [place] [address] MCHC (RBC) [Mass/Vol] 31.5 31.6-34.8 % Low 06-09-20 20 [facility] (24853) Comment: Performed By: #### GFR #### [place] [address] MCV (RBC) [Entitic vol] 91.6 79.4-94.8 fl Normal 2019 [facility] (00 000) Comment: Performed By: #### GFR #### [place] [address] Platelet mean volume (Bld) 11.6 9.4-12.[address] [facility] [Entitic vol] System (89065) Comment: Performed By: #### GFR #### [place] [id number] Platelets (Bld) [#/Vol] 199 182-369 thou/cmm Normal 2019 [facility] (00 000) Comment: Performed By: #### GFR #### [place] [address] RBC (Bld) [#/Vol] 3.68 3.93-5.22 mil/cmm Low 06-09-2020 [facility] (73415) Comment: Performed By: #### GFR #### [place] [address] RDW SD 43.9 36.4-46.3 fl Normal 06-09-2020 [facility] (35541) Comment: Performed By: #### GFR #### [facility] [address] [place], [place] [address] WBC (Bld) [#/Vol] 6.47 3.98-10.04 thou/cmm Normal 06-09-2020 [facility] (00 000) Comment: Performed By: #### GFR #### [facility] [address] [place], [place] [address] basic metabolic panel on 2020-06-09 Anion gap [Moles/Vol] 11 9-18 mmol/L Normal 06-09-20 20 [facility] (07628) Comment: Performed By: #### GFR #### [facility] [address] [place], [place] [address] Calcium [Mass/Vol] 8.8 8.5-10.2 mg/dL Normal 06-09-2020 [facility] (94412) Comment: Performed By: #### GFR #### [facility] [address] [place], [place] [address] Chloride [Moles/Vol] 106 97-105 mmol/L High 0 [facility] (85629) Comment: Performed By: #### GFR #### [facility] [address] [place], [place] [address] CO2 Blood 24 22-30 mmol/L Normal 06-09-2020 [facility] (75096) Comment: Performed By: #### GFR #### [facility] [address] [place], [place] [address] Creatinine [Mass/Vol] 0.82 0.58-0.96 mg/dL Normal 06-09-20 20 [facility] (00 000) Comment: Performed By: #### GFR #### [facility] [address] [place], [place] [address] Glucose [Mass/Vol] 84 74-99 mg/dL Normal 06-09-2020 [facility] (31198) Comment: Result Comment: The [place] Diabetes Association (ADA) provides guidance for cutoff [...] Standards of Medical Care in Diabetes 2016; [place] Diabetes Association. Diabetes Care. 2016;39(Suppl 1). Performed By: #### GFR #### [facility] [address] [place], [place] [address] Potassium [Moles/Vol] 3.8 3.7-5.1 mmol/L Normal 06-09-20 [facility] (00 000) Comment: Performed By: #### GFR #### [address] [address] Sodium [Moles/Vol] 141 136-144 mmol/L Normal 06-09-2020 [facility] (20718) Comment: Performed By: #### GFR #### [address] [address] Urea nitrogen [Mass/Vol] 9 7-21 mg/dL Normal 06-09 [facility] (27539) Comment: Performed By: #### GFR #### [address] [address] protime on INR Coag (PPP) [Relative 1.07 0.90-1.30 {INR} Normal 06-08 [facility] time] System (00 000) Comment: Result Comment: Vitamin K An tagonist (VKA) Therapeutic Range: INR 2 to 3 (Target INR of 2.5) Note: For patients treated w ith VKA drugs, such as warfarin, the [place] [employer] 2012 Guideline recommends a therapeutic INR range of 2 to 3 (target INR of 2.5). This recommendation includes high -risk patients with antiphospholipid syndrome with previous arter ial or venous thromboembolism, current-generation mechanica l or bioprosthetic aortic heart valve replacement. Note: Patients with heavy equipment engine mechanic al aortic valve replacement and additional [...] 70: 252-289 Performed By: #### GFR #### [facility] [address] [place], [place] [address] PT Coag (PPP) [Time] 11.1 9.7-13.0 sec Normal 0 [facility] (78012) Comment: Performed By: #### GFR #### [address] [address] phosphorous blood o n 2020-06-08 Phosphate [Mass/Vol] 3.3 2.7-4.8 mg/dL Normal 0 [facility] (99192) Comment: Performed By: #### GFR #### [address] [address] nursing prog on NURSING PROG HNO ID: [id number] Normal 06-08-20 20 [facility] Author: Garo Jackson RN [facility] Service: ? ([id number]) Author Type: Registered Nurse Type: Nursing Progress Note Filed: 06/08/2020 10:56 AM Note Text: Nursing Progress Note Patient Name: Sally Mcgregor Patient Location: [address]/[id number] Spoke with Doctor Dick regarding IV contrast allergy and th e need for steroid prep. This note was completed by: Garo Jackson RN mri panc/james wo/w ivcon on 2020-06-08 MRI PANC/JAMES WO/W Final Report Normal 0 [facility] IVCON DATE OF EXAM: Jun 08 2020 6:[address] [place] [address]30 - MRI PANC/JAMES WO/W IVCON / ([id number]) PROCEDURE REASON: Liver lesion, >1cm, US indeterminate, [...] x 8.0 cm . 2. Normal MRCP. Concrete Finisher: PSCB Transcribe Date/Time: Jun 08 2020 7:48P Dictated by : ALICE ALCARAZ MD This examination was interpreted and the report reviewed and electronically signed by: ALICE ALCARAZ MD on Jun 08 2020 8:42PM EST mri 3d post processing on 2020-06-08 MRI 3D POST Final Report Normal 06-08-2020 Gabriela barboza General PROCESSING DATE OF EXAM: Jun 08 2020 [facility] POST PROCESSING / ([id number]) PROCEDURE REASON: Abd pain, chronic, intermittent Physician [...] x 8.0 cm . 2. Normal MRCP. Concrete Finisher: PSCAudrey Transcribe Date/Time: Jun 08 2020 7:48P Dictated by : ALICE ALCARAZ MD This examination was interpreted and the report reviewed and electronically signed by: ALICE ALCARAZ MD on Jun 08 2020 8:42PM EST magnesium blood on 2020-06-08 Magnesium [Mass/Vol] 2.0 1.7-2.3 mg/dL Normal 0 [facility] (78097) Comment: Performed By: #### LIP #### [place] [id number] lipase blood on Lipase Blood 31 16-61 U/L Normal 06-08-2020 [facility] (72186) Comment: Performed By: #### GFR #### [facility] [address] [place], [place] [address] history physical on 2020-06-08 HISTORY HNO ID: [id number] Normal 06-08-2020 [place] PHYSICAL Author: Chris [facility] Service: General Surgery Medical Author Type: Resident Center Type: [facility] ([id number]) Filed: 06/08/2020 7:24 AM Note Text: Attestation signed by Mala Almendarez at 06/08/2020 7:09 PM Attending Note I personally saw and examined the patient. I reviewed the resident's note. I agree with the resident's assessment and plan with the [facility] revisions and/or additions: Admit for symptomatic hepatic cyst. Plan for cyst fenestrati on on Thursday. Signature: Mala Almendarez MD Date: 06/08/2020 Time: 7:09 PM HISTORY AND PHYSICAL EXAMINATION SERVICE DATE: 06/08/2020 SERVICE TIME: 7:12 AM Subjective CHIEF COMPLAINT: Abdominal Pain HPI: 39 year old female presents as a direct admission to [facility] with abdominal pain and a known history of hepatic cysts with rec urrent pancreatitis. Her last admission was for pancreatitis, in [facility] she had imaging showing increasing size of [...] Benign liver cyst 05/24/2010 CT scan at [facility] 11/2009 and 04/2010 showe 4 mm increase in size . No pain. No elevated LFTs on 03/11/2010. - Calculus of kidney 05/17/[address] Nicolas: Hospitalized age 20, and again later -- no procedures so far ([facility], most, [facility]) - Cancer (HCC) - Diverticulosis - Dysmenorrhea [...] removed - TOTAL ABDOM HYSTERECTOMY 08/31/06 Hysterectomy, [facility] FAMILY HISTORY Problem Relation Age of Onset [...] Approx. 3 cigarettes daily-1 pack every w rosebud Substance Use Topics - Alcohol use: Yes [...] in the last 72 hours. Invalid input(s): [facility] Diagnostic tests reviewed for today's visit: Most [...] please page [phone] if in ICU or 2173 if on RNF. hepatic function panel on 2020-06-08 Albumin [Mass/Vol] 4.7 3.9-4.9 g/dL Normal 06-08-2020 [facility] (91842) Comment: Performed By: #### GFR #### [address] [address] ALP [Catalytic activity/Vol] 94 34-123 U/L Normal 0 06-08-2020 [facility] (00 000) Comment: Performed By: #### GFR #### [address] [address] ALT [Catalytic activity/Vol] 17 7-38 U/L Normal 0 06-08-2020 [facility] (00 000) Comment: Performed By: #### GFR #### [address] [address] AST [Catalytic activity/Vol] see below 13-35 Normal 0 06-08-2020 [facility] (00 000) Comment: Result Comment: Unable to as say. Specimen Hemolyzed Performed By: #### GFR #### [address] [address] Bilirubin [Mass/Vol] 0.3 0.2-1.3 mg/dL Normal 0 [facility] (86607) Comment: Performed By: #### GFR #### [facility] [address] [place], [place] [address] Bilirubin [Mass/Vol] see below 0.0-0.2 Normal 0 [email or web address] (00 000) Comment: Result Comment: Unable to as say. Specimen Hemolyzed Performed By: #### GFR #### [facility] [address] [place], [place] [address] Protein [Mass/Vol] 7.8 6.3-8.0 g/dL Normal 06-08-2020 [facility] (94705) Comment: Performed By: #### GFR #### [facility] [address] [place], [place] [address] hemogram on 2020-05 Erythrocyte distribution 13.3 11.7-14.4 % Normal 06-08 [facility] width (RBC) [Ratio] System (84013) Comment: Performed By: #### LIP #### [facility] [address] [place], [place] [address] Hematocrit (Bld) [Volume 38.1 34.1-44.9 % Normal 06-08 [place] [facility] fraction] System (00 000) Comment: Performed By: #### LIP #### [address] [address] Hemoglobin (Bld) 11.8 11.2-15.7 g/dL Normal 06-08-2020 [facility] [Mass/Vol] System (0 0000) Comment: Performed By: #### LIP #### [facility] [address] [place], [place] [address] MCH (RBC) [Entitic mass] 28.4 25.6-32.2 pg Normal 06-08 [facility] (00 000) Comment: Performed By: #### LIP #### [address] [address] MCHC (RBC) [Mass/Vol] 31.0 31.6-34.8 % Low 06-08-20 20 [facility] (22820) Comment: Performed By: #### LIP #### [facility] [address] [place], [place] [address] MCV (RBC) [Entitic vol] 91.8 79.4-94.8 fl Normal 2019 [facility] (00 000) Comment: Performed By: #### LIP #### [facility] [address] [place] [id number] Platelet mean volume (Bld) 11.6 9.4-12.[address] [facility] [Entitic vol] System (01775) Comment: Performed By: #### LIP #### [facility] [address] [place] [id number] Platelets (Bld) [#/Vol] 230 182-369 thou/cmm Normal 2019 [facility] (00 000) Comment: Performed By: #### LIP #### [facility] [address] [place] [id number] RBC (Bld) [#/Vol] 4.15 3.93-5.22 mil/cmm Normal 06-08-2020 [facility] (00 000) Comment: Performed By: #### LIP #### [facility] [address] [place] [id number] RDW SD 44.9 36.4-46.3 fl Normal 06-08-2020 [facility] (82968) Comment: Performed By: #### LIP #### [facility] [address] [place], [place] [address] WBC (Bld) [#/Vol] 7.30 3.98-10.04 thou/cmm Normal 06-08-2020 [facility] (00 000) Comment: Performed By: #### LIP #### [facility] [address] [place] [id number] case mgt init asses on 2020-06-08 CASE MGT INIT HNO ID: [id number] Normal 020 [facility] Author: Britni (Rn) [facility] Service: Care Management ([id number]) Author Type: Registered Nurse Type: Care Mgt Initial Assessment Filed: 06/08/2020 11:00 AM Note Text: CARE MANAGEMENT: ASSESSMENT AND DISCHARGE PLAN SERVICE DATE: June 08, 2020 SERVICE TIME: 10:50 AM PRIMARY CARE PHYSICIAN: Marcelino Mejia MD (Confirmed with patient) ADMISSION STATUS: Inpatient Needs Prior to Discharge: Pharmacy Bedside Delivery MEDICAL: [facility] MEDICAID Patient/Molder Feeder Stated Goals: To return home to life as it was Health Insurance: [facility] Issues Impacting Discharge Plan: Uncontrolled Uncontrolled: [...] completed Advance Directive: Current Advance Directive: None Steel Tier Attempted to Assist with AD Completion: Yes [...] Patient Currently Receive Any Community Services or [facility] Care?: None Equipment Prior to Admission: None [...] Completely I feel financially burdened by my [id number] expenses for my prescription medication:: 0 - Disagree Completely Risk Score: 0 Patient is categorized as: Low risk < 2 Are you interested in bedside delivery of your medications? Yes Is Patient Psychosocially Complex?: No ASSESSMENT AND PLAN: Medical Needs: Medical Needs: Two or more chronic diseases Psychosocial Needs: Psychosocial Needs: None FREEDOM OF CHOICE EXPLAINED: Robinson of Choice Given: No Reason Not Given: [...] 08, 2020 TIME: 10:50 AM PAGER/CONTACT #: [phone] basic metabolic panel on 2020-06-08 Anion gap [Moles/Vol] 11 9-18 mmol/L Normal 06-08-20 [facility] (24165) Comment: Performed By: #### LIP #### [address] [address] Calcium [Mass/Vol] 9.6 8.5-10.2 mg/dL Normal 06-08-2020 [facility] (15145) Comment: Performed By: #### LIP #### [address] [address] Chloride [Moles/Vol] 104 97-105 mmol/L Normal 0 [facility] (62264) Comment: Performed By: #### LIP #### [facility] [address] [place], [place] [address] CO2 Blood 25 22-30 mmol/L Normal 06-08-2020 [facility] (67489) Comment: Performed By: #### LIP #### [facility] [address] [place], [place] [address] Creatinine [Mass/Vol] 0.80 0.58-0.96 mg/dL Normal 06-08-20 [facility] (00 000) Comment: Performed By: #### LIP #### [facility] [address] [place], [place] [address] Glucose [Mass/Vol] 91 74-99 mg/dL Normal 06-08-2020 [facility] (64730) Comment: Result Comment: The [place] Diabetes Association (ADA) provides guidance for cutoff [...] Standards of Medical Care in Diabetes 2016; [place] Diabetes Association. Diabetes Care. 2016;39(Suppl 1). Performed By: #### LIP #### [facility] [address] [place], [place] [address] Potassium [Moles/Vol] 3.7 3.7-5.1 mmol/L Normal 06-08-20 20 [facility] (00 000) Comment: Performed By: #### LIP #### [facility] [address] [place], [place] [address] Sodium [Moles/Vol] 140 136-144 mmol/L Normal 06-08-2020 [facility] (54894) Comment: Performed By: #### LIP #### [facility] [address] [place], [place] [address] Urea nitrogen [Mass/Vol] 13 7-21 mg/dL Normal 06-08 [facility] (56587) Comment: Performed By: #### LIP #### [facility] [address] [place] [id number] allied health on 03-06-25 ALLIED HEALTH HNO ID: [id number] Normal 020 [facility] Author: Deepa (Rt) [facility] ([id number]) Service: Radiology Author Type: Polishing Machine Operator Type: Allied Health Filed: 06/08/2020 7:02 PM Note Text: Spoke to Garo (RN), in regards to her itching and scratching after the MRI was completed. Garo informed me that she had been itching an d scratching all day. Garo came down and gave the patient medication for the itching and took her back to the room. Kelley Noriega [facility]ALTH HNO ID: [id number] Normal 020 [facility] Author: Deepa Mcintosh) [facility] ([id number]) Service: Radiology Author Type: Polishing Machine Operator Type: Allied Health Filed: 06/08/2020 5:56 PM [...] TIME: 5:53 PM ALLIED HEALTH HNO ID: [id number] Normal 020 [facility] Author: Deepa (Rt) [facility] ([id number]) Service: Radiology Author Type: Polishing Machine Operator Type: Allied Health Filed: 06/08/2020 4:21 PM Note Text: Called RN to get MRI order changed to w/wo per radiology pro tocol. Patient is not listed as allergy to gadolinium and creat is WNL. Mira l schedule STAT MRI as soon as order is changed activated ptt on 03-06-25 aPTT Coag (Bld) [Time] 30.5 23.0-32.4 sec Normal 020 [facility] (00 000) Comment: Result Comment: Unfractionat ed [...] AP TT reagent in use throughout the [facility]. Performed By: #### GFR #### [facility] [address] [place] [address] hosp on 2020-06-07 HOSP Patient:Sally Mcgregor Normal 05-16 [place] MRN: General Height:5' 1(1.549 m) Medical Weight:197 lb 9.6 oz (89.631 kg) Center Outpatient Medications as of 06/11/20: (83604) prazosin (MINIPRESS) 1 mg cap hyoscyamine (LEVSIN) [...] the resident's assessment and [facility] revisions and/or additions: Admit for symptomatic hepatic cyst. Plan for cyst fenestrati on on Thursday. Signature: Mala Almendarez MD Date: 06/08/2020 Time: 7:09 PM HISTORY AND PHYSICAL EXAMINATION SERVICE DATE: 06/08/2020 SERVICE TIME: 7:12 AM Subjective CHIEF COMPLAINT: Abdominal Pain HPI: 39 year old female presents as a direct adm ission to [facility] with abdominal pain and a known [...] Benign liver cyst 05/24/2010 CT scan at [facility] 11/2009 and 04/2010 showe 4 mm increase in size . No pain. No elevated LFTs on 03/11/2010. - Calculus of kidney 05/17/[address] Nicolas: Hospitalized age 20, a nd again later -- no procedures so far ([facility], most, 1995 [facility]) - Cancer (HCC) - Diverticulosis - Dysmenorrhea [...] removed - TOTAL ABDOM HYSTERECTOMY 08/31/06 Hysterectomy, [facility] FAMILY HISTORY Problem Relation Age of Onset [...] Approx. 3 cigarettes daily-1 pack every w rosebud Substance Use Topics - Alcohol use: Yes [...] questions or concerns Thu-Thu 6a-5p please page [phone]. After 5pm and on Weekends an d Holidays, please page [phone] if in ICU or [phone] if on RNF. Britni Grimaldo, RN, RN 06/08/2020 11:00 AM Signed CARE MANAGEMENT: ASSESSMENT AND DISCHARGE PLAN SERVICE DATE: June 08, 2020 SERVICE TIME: 10:50 AM PRIMARY CARE PHYSICIAN: Marcelino Mejia MD (Confirmed with patient) ADMISSION STATUS: Inpatient Needs Prior to Discharge: Pharmacy Bedside Delivery MEDICAL: [facility] MEDICAID Patient/Molder Feeder Stated Goals: To return home to life as it was Health Insurance: [facility] Issues Impacting Discharge Plan: Uncontrolled Uncontrolled: [...] completed Advance Directive: Current Advance Directive: None Steel Tier Attempted to Assist with AD Completion: Yes [...] Patient Currently Receive Any Community Services or [facility] e Care?: None Equipment Prior to Admission: [...] Completely I feel financially burdened by my zcb-av-rzskvj expens es for my prescription medication:: 0 - Disagree Completely Risk Score: 0 Patient is categorized as: Low risk < 2 Are you interested in bedside delivery of your medications? Yes Is Patient Psychosocially Complex?: No ASSESSMENT AND PLAN: Medical Needs: Medical Needs: Two or more chronic diseases Psychosocial Needs: Psychosocial Needs: None FREEDOM OF CHOICE EXPLAINED: Robinson of Choice Given: No Reason Not Given: [...] 08, 2020 TIME: 10:50 AM PAGER/CONTACT #: [phone] Jasmine Chavez, RN 06/08/2020 10:56 AM Signed Nursing Progress Note Patient Name: Sally Mcgregor Patient Location: [place] [address] [address] Spoke with Doctor Jennings regarding IV con [...] soon as order is changed RT Masoud, [employer] 06/08/2020 5:56 PM Signed Radiology Service Progress [...] questions or concerns Thu-Thu 6a-5p please page [phone]. After 5pm and on Weekends and Holidays, please page [phone]. SUBJECTIVE: NAEON. Afebrile. Patient resting in bed [...] 06/08/20699 - 06/09/2065806/09/20699 - 06/10/20 0659 Shift 4579-7512 3717-0472 23 00-0659 24 Hour Total 5040-8046 2527-7335 9068-2009 24 Hour Total INTAKE Shift Total OUTPUT [...] (TYLENOL) 975 mg ORAL q 6 H WI N - oxyCODONE IR 5-10 mg tab(s) [...] questions or concerns Thu-Thu 6a-5p please page [phone]. After 5pm and on Weekends an d Holidays, please page [phone] if in ICU or [phone] if on RNF. Mer Bejarano, RN, RN [...] questions or concerns Mon-Fri 6a-5p please page [phone]. After 5pm and on Weekends and Holidays, please page [phone]. SUBJECTIVE: NAEON. Afebrile. Patient resting in bed [...] - 06/10/20 0606/10/20699 - 06/11/20 0659 Shift 8109-7389 6373-7826 23 00-0659 24 Hour Total 3475-2664 9087-8927 6121-2706 24 Hour Total INTAKE PO 352 921 0787 PO 120 996 3173 Shift Total 560 674 5160 OUTPUT Urine Urine Not Saved. 2 x [...] above ABDOMEN: Soft, TTP RUQ, non-distended EXTREMITIES: CALLHAAN, No deformities, No edema SKIN: Skin color, [...] questions or concerns Thu-Thu 6a- please page [phone]. After 5pm and on Weekends an d [...] 2020 Notes: Pre-surgery Patient Nothing needed tonight. Scratch Brusher Signature: Chaplain Erick To contact the Spiritual Care Department: Please call [phone] or Page the On-Call Scratch Brusher at pag er [phone] Thank you for the opportunity to be of service. This is an electronically created document. IF PRINTED, PLEASE DO NOT REMOVE FROM THE CHART OR MODIFY WI INTED COPY. Kimmie Jennings DO 06/11/2020 7:03 AM Cosign Needed Elect[facility] General Surgery Progress Note SERVICE DATE: 06/11/2020 [facility] Service Pager: For questions or concerns Thu-Thu 6a- please page [phone]. After 5pm and on Weekends and Holidays, please page [phone]. SUBJECTIVE: NAEON. Afebrile. Patient resting in bed [...] 06/10/20699 - 06/11/2065806/11/20699 - 06/12/20 0659 Shift 0288-3919 6018-4085 23 00-0659 24 Hour Total 2645-0911 8126-1139 0627-8150 24 Hour Total INTAKE PO 600 600 [...] questions or concerns Thu-Thu 6a-5p please page [phone]. After 5pm and on Weekends an d Holidays, please page [phone] if in ICU or [phone] if on RNF. Britni Grimaldo RN, RN [...] 11, 2020 TIME: 9:10 AM PAGER/CONTACT #: [phone] Ruben Thompson MD 06/11/2020 9:51 AM Signed [...] Benign liver cyst 05/24/2010 CT scan at [facility] 11/2009 and 04/2010 showe 4 mm increase in size . No pain. No elevated LFTs on 03/11/2010. - Calculus of kidney 05/17/[address] Nicolas: Hospitalized age 20, a nd again later -- no procedures so far ([facility], [facility], [facility]) - Cancer (HCC) - Diverticulosis - Dysmenorrhea [...] removed - TOTAL ABDOM HYSTERECTOMY 08/31/06 Hysterectomy, [facility] FAMILY HISTORY Problem Relation Age of Onset [...] Approx. 3 cigarettes daily-1 pack every w rosebud Substance Use Topics - Alcohol use: Yes [...] INTRAVENOUS q 3 H PRN Nigel (Res) Brule 1 mg at 0536 - [MAR Hold [...] June 11, 2020 TIME: 9:49 AM CSN: [id number] Progress Notes ([facility]): Johnny Winn MD 06/06/2020 10:30 AM Signed [...] ysts. All questions answered. MD [facility]bek[facility] Cunningham [facility] 06/06/2020 10:53 AM Signed Patient is calling back with additional questions after speaking with Dr. Winn today. Please call patient. cnpn on 2020-06-06 CNPN Telephone (GSTNOR) Normal 06-06-2020 [place] [facility] SAMSALLY ([id number]) 1980 [facility] Date Time Provider Department ([id number]) 06/06/20 JOHNNY WINN GSTNOR During your visit [...] ysts. All questions answered. MD Rebekah Cunningham [facility] 06/06/2020 10:53 AM Signed Patient is [...] Order(s):CONSULT TO ALLERGY/IMMUNOLOGY [ 9001] Order #: [id number]: 1 FUTURE Prescriptions as of 06/06/2020 Sig: [...] 06/06/20 progress on 2020-05 PROGRESS HNO ID: [id number] Normal 06-05-2020 [facility] Author: Mala sosa ([id number]) Service: ? Author Type: Physician Type: Progress [...] MD progress on 2020-05 PROGRESS HNO ID: [id number] Normal 06-01-2020 [facility] Author: Branden PickardNetwork Navigator) Amalia Mata ([id number]) Service: ? Author Type: Architectural Technician Type: Progress Notes Filed: 06/01/2020 12:42 PM Note Text: Patient has follow up with next Thursday for Pancreatitis. progress on 2020-05 PROGRESS HNO ID: [id number] Normal 05-31-2020 [facility] Author: Marcelino Mejia [place] ([id number]) Service: ? 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 She has been seeing them for recurring pancreatit is and stomach issues. I have nothing further I can add to her care at this time. PROGRESS HNO ID: [id number] Normal 05-31-2020 [facility] Author: Branden (Network Navigator) Amalia [place] ([id number]) Service: ? Author Type: Architectural Technician Type: Progress Notes Filed: 05/31/2020 8:49 AM [...] appointment. Thank you SUMMARY: Pt discharged from [facility] on May 29, 2020 Admitted for: Intractable nausea and vomitting Contact made with patient: Yes Hi my name is ANDRE Graham and I am calling from the [facility] on behalf of your PCP, Marcelino Mejia [...] like to speak with a social work submarine advisory team watch officer to help give you support for any [...] I will send your request to a dental scheduler who will contact and assist you with [...] out to patient to assist with scheduling FARMER DIVERSIFIED CROPS: Patient Mira status is: Active account Thank [...] on 2020-05-31 CNPN Telephone (GSTNOR) Normal 05-31-2020 [place] [facility] SALLY MCGREGOR ([id number]) 1980 [facility] Date Time Provider Department ([id number]) 05/31/20 JOHNNY WINN GSTNOR During your visit today, we recorded the following informati on about you: Pierce Sunil Cates 05/31/2020 2:37 PM Signed Patient call, said she was doing ok yesterday, today having epigastric abdominal pain, nausea and vomiting. Has appt [facility] Dr. Almendarez next week. Advised ER consult [...] 05/31/20 progress on 2020-05 PROGRESS HNO ID: [id number] Normal 05-30-2020 [facility] Author: Allie (Network Navigator) Skyler Mata ([id number]) Service: ? Author Type: Architectural Technician Type: Progress Notes Filed: 05/31/2020 8:49 AM Note Text: TRANSITIONAL CARE MANAGEMENT (TCM) COMMUNITY MONITORING PROG BRITTANI Provider Action/FYI: Message left for patient. Attempting to schedule TCM appoint ment SUMMARY: [facility]. Admitted for: intractable nausea and vomiting Contact made with patient: No - scheduled next outreach for next business day in the Track Pt Outreach section Outreach ended cnptoutreach on CNPTOUTREACH Patient Outreach (FAMPWS) Normal 0 05-30-2020 [place] SALLY Martinez ([id number]) 1980 [place] Date Time Provider Department ([id number]) 05/30/20 ALLIE CHOWDHURY (NETWORK NAVIGATOR)RAMA During your visit today, we recorded the following informati on about you: ADNRE Sorensen 05/31/2020 8:49 AM Signed TRANSITIONAL CARE MANAGEMENT (TCM) COMMUNITY MONITORING PROG BRITTANI Provider Action/FYI: Message left for patient. Attempting to schedule TCM appoint ment SUMMARY: Pt discharged [facility]. Admitted for: intractable nausea and vomiting Contact made with patient: No - scheduled next o [facility] for next day in the Track Pt [...] appointment. Thank you SUMMARY: Pt discharged from [facility] on May 29, 2020 Admitted for: Intractable nausea and vomitting Contact made with patient: Yes Hi my name is ANDRE Graham and I am calling from the [facility] on behalf of your PCP, Marcelino Mejia [...] like to speak with a social work submarine advisory team watch officer to help give you support for any [...] I will send your request to a dental scheduler who will contact and assist you with [...] out to patient to assist with scheduling FARMER DIVERSIFIED CROPS: Patient Mira status is: Active account Thank [...] 05/31/2020 10:49 AM Signed 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 initi al outreach [...] 05/31/20 progress on 2020-05 PROGRESS HNO ID: [id number] Normal 05-29-2020 [place] Author: Vickie Srivastava [facility] Service: Hospital Medicine Medical Author Type: Resident Center Type: Progress Notes ([id number]) Filed: 05/29/2020 2:51 PM Note Text: Attestation [...] PM: You may reach the House Medicine corporate legal intern currently assigned to this patient by jack mahoney their pager number on the treatment team (they will be assigned as the i ntern or resident). It is the last four digits in the phone number be ginning with ([phone]). We encourage the use of [employer] Secure Chat. SUBJECTIVE HPI: 39 year old F PMHx idiopathic pancreatitis, hepatic cys ts presenting to the ED with intractable nausea and vomiting as well as RU Q abdominal pain for the past 3 days. States that she called her GI doct or Dr. Winn and he told her to come into the ED. She has a scope [facility] ed for 05/[address] Winn. Was [...] DAILY 05/25/201935 -- 05/25/201944 pneumatic compression stockings (ma,oh) VTE Prophylaxis: VTE prophylaxis appropriate GI Prophylaxis: Indicated due to chronic acid suppression th erapy as an outpatient Telemetry: no Disposition: Home Code Status: Not on file Plan of care discussed with: Provider, RN, Patient SIGNATURE: Vickie Srivastava MD PATIENT NAME: Sally shannon DATE: May 29, 2020 TIME: 1:53 PM plan of care on PLAN OF CARE HNO ID: [id number] Normal 05-29-20 [facility] Author: Felix Foster (Pharmacist) Center ([id number]) Service: Pharmacy Author Type: Pharmacist Type: Plan of Care Filed: 05/29/2020 2:49 PM Note Text: MEDICATION RECONCILIATION Patient Name:Marlen Mcgregor : 1980 Reconciliation: Yes All EXTRUSION LINE OPERATOR medications addressed by LIP Additional comments: aggree with student note Allergies: ALLERGIES Allergen Reactions - Penicillins Rash - Cephalexin Itching - Chlorhexidine Rash Skin rash - Toradol [Ketorolac] Rash - Tramadol Rash - Asa [Salicylates] Other: See Comments ulcers - Contrast Dye [Iodin* Shortness of Breath - Ibuprofen GI Upset - Prednisone Other: See Comments makes agitated and mean Preferred Pharmacy: [facility] Current EXTRUSION LINE OPERATOR Medications: Prior to Admission medications as of 05/29/20 0928 Medication Sig Last Dose Taking prazosin (MINIPRESS) 1 mg cap Take 1 mg by mouth daily at [facility]. Yes hyoscyamine (LEVSIN) 0.125 mg [...] 2:47 PM PLAN OF CARE HNO ID: [id number] [place] 05-29-20 [facility] Author: Felix Foster (Pharmacist) [place] ([id number]) Service: Pharmacy Author Type: Pharmacist Type: Plan [...] CORADO May 29, 2020 2:50 PM Pager: [phone] 05/29/2020 2:50 PM Medication List START taking [...] Your Medications These medications were sent to [facility]/pharmacy [facility][id number] [place] [address] - [address] [facility] [phone] [address] [address] [facility] [address] ? oxyCODONE IR 5 mg immediate release tablet PLAN OF CARE HNO ID: [id number] [place] 05-29-20 [facility] Author: Felix Foster (Pharmacist) Center ([id number]) Service: Pharmacy Author Type: Pharmacist Type: Plan of Care Filed: 05/29/2020 2:47 PM Note Text: MEDICATION HISTORY Patient Name:Marlen Mcgregor : 1980 Source of history:Patient: Reliability of source: Appears re liable, clearly identified: Medication name, Medication frequency an d Timing of last dose and Pharmacy records: [id number] in [place], [place] [phone] Medication Nonadherence Identified: No barriers noted The above information represents the best possible medicatio n history: Yes Additional comments: Confirmed with patient and pharmacist hanna t [facility] - Recent changes to medications outpatient from Dr. Winn, patient did not start Sucralfate and Promethazine prior to admission and only took 1 dose of Hyoscyamine prior to admission Lyozu-qc-Ptiluzuay Medication List Adjustments: Medication Regimen Changes: Promethazine [...] Comments makes agitated and mean Preferred Pharmacy: [facility] #[id number] phone [phone] Current EXTRUSION LINE OPERATOR Medications: Prior to Admission medications as of 05/29/20 0925 Medication Sig Last Dose Taking prazosin (MINIPRESS) 1 mg cap Take 1 mg by mouth daily at [facility]. Yes hyoscyamine (LEVSIN) 0.125 mg tablet [...] stomach, 1/2 hr before meal. Maggi Hernandez (Flag Football Coach) May 29, 2020 9:14 AM mdrd gfr on 2020-05 GFR/1.73 sq M >60 >60mL/min/1.73m2 mL/min/{1.73_m2} Normal [place] [facility] among [facility] th System non-blacks MDRD (000 00) (S/P/Bld) [Vol rate/Area] Comment: Result Comment: If the patie nt is , multiply the result by 1.210. Performed By: #### GFR #### [address] [address] hemogram on 2020-05 Erythrocyte distribution 13.2 11.7-14.4 % Normal 05-29 [facility] width (RBC) [Ratio] System (17075) Comment: Performed By: #### LIP #### [address] [address] Hematocrit (Bld) [Volume 36.1 34.1-44.9 % Normal 05-29 [employer] fraction] System (00 000) Comment: Performed By: #### LIP #### [address] [address] Hemoglobin (Bld) 11.5 11.2-15.7 g/dL Normal 05-29-2020 [facility] [employer] [Mass/Vol] System (0 0000) Comment: Performed By: #### LIP #### [address] [address] MCH (RBC) [Entitic mass] 29.0 25.6-32.2 pg Normal 05-29 [facility] (00 000) Comment: Performed By: #### LIP #### [address] [address] MCHC (RBC) [Mass/Vol] 31.9 31.6-34.8 % Normal 05-29-20 20 [facility] (49498) Comment: Performed By: #### LIP #### [facility] [address] [place], [place] [address] MCV (RBC) [Entitic vol] 90.9 79.4-94.8 fl Normal 2019 [facility] (00 000) Comment: Performed By: #### LIP #### [facility] [address] [place], [place] [address] Platelet mean volume (Bld) 10.9 9.4-12.[address] [facility] [Entitic vol] System (98441) Comment: Performed By: #### LIP #### [facility] [address] [place], [place] [address] Platelets (Bld) [#/Vol] 223 182-369 thou/cmm Normal 2019 [facility] (00 000) Comment: Performed By: #### LIP #### [facility] [address] [place], [place] [address] RBC (Bld) [#/Vol] 3.97 3.93-5.22 mil/cmm Normal 05-29-2020 [facility] (00 000) Comment: Performed By: #### LIP #### [facility] [address] [place], [place] [address] RDW SD 43.5 36.4-46.3 fl Normal 05-29-2020 [facility] (47262) Comment: Performed By: #### LIP #### [facility] [address] [place], [place] [address] WBC (Bld) [#/Vol] 5.88 3.98-10.04 thou/cmm Normal 05-29-2020 [facility] (00 000) Comment: Performed By: #### LIP #### [facility] [address] [place], [place] [address] consult on CONSULT HNO ID: [id number] Normal 05-29-2020 [facility] Author: Maria Luisa Joyner [facility] Service: Pain Management ([id number]) Author Type: Physician Type: Consults Filed: 05/29/2020 11:10 AM Note Text: SALLY MCGREGOR 39 year old PAIN CONSULTATION: Abdominal pain, history of idiopathic verdugo creatitis. 24 HOUR COMFORT MEDICATIONS: Tylenol x0 Benadryl 50 mg x 2 Phenergan 25 mg x 2 Oxycodone 10 mg x 3 Quetiapine 100 mg daily [place] prescription history Shows occasional use of opiates, [...] hepatic cysts, and no evidence of ac [place] pancreatitis with normal lipase, and CBC. At [...] (TYLENOL) 650 mg ORAL q [address] [place] [address] Johnny Winn - prazosin (MINIPRESS) 1 [...] Approx. 3 cigarettes daily-1 pack every w rosebud Substance Use Topics - Alcohol use: Yes [...] gap [Moles/Vol] 11 9-18 mmol/L Normal 05-29-20 [facility] (56020) Comment: Performed By: #### LIP #### [facility] [address] [place], [place] [address] Calcium [Mass/Vol] 8.8 8.5-10.2 mg/dL Normal 05-29-2020 [facility] (39901) Comment: Performed By: #### LIP #### [facility] [address] [place], [place] [address] Chloride [Moles/Vol] 104 97-105 mmol/L Normal 0 [facility] (97265) Comment: Performed By: #### LIP #### [facility] [address] [place], [place] [address] CO2 Blood 23 22-30 mmol/L Normal 05-29-2020 [facility] (70381) Comment: Performed By: #### LIP #### [facility] [address] [place], [place] [address] Creatinine [Mass/Vol] 0.78 0.58-0.96 mg/dL Normal 05-29-20 [facility] (00 000) Comment: Performed By: #### LIP #### [facility] [address] [place], [place] [address] Glucose [Mass/Vol] 88 74-99 mg/dL Normal 05-29-2020 [facility] (83166) Comment: Result Comment: The [place] Diabetes Association (ADA) provides guidance for cutoff [...] Standards of Medical Care in Diabetes 2016; [place] [employer]. Diabetes Care. 2016;39(Suppl 1). Performed By: #### LIP #### [facility] [address] [place], [place] [address] Potassium [Moles/Vol] 3.4 3.7-5.1 mmol/L Low 05-29-20 [facility] (83292) Comment: Performed By: #### LIP #### [facility] [address] [place] [address] Sodium [Moles/Vol] 138 136-144 mmol/L Normal 05-29-2020 [facility] (95252) Comment: Performed By: #### LIP #### [facility] [address] [place] [address] Urea nitrogen [Mass/Vol] 6 7-21 mg/dL Low 05-29 [facility] (33020) Comment: Performed By: #### LIP #### [facility] [address] [place] [address] surgical tissue exam on 2020-05-28 Surgical Tissue Test performed at [facility] Normal 05-28-2020 [place] [facility] [address] [place] [address] ([id number]) NAME: SALLY MCGREGOR REQUESTING: JOHNNY WINN MD [...] 1 Comment: Performed By: #### LIP #### [facility] [address] [place] [address] pt ed on 2020-05-28 PT ED HNO ID: [id number] Normal 05-28-2020 [facility] Author: [facility] ([id number]) Service: Nursing Author Type: Registered Nurse Type: [...] Flakita Ragland RN PT ED HNO ID: [id number] [place] 05-28-2020 [facility] Author: Flakita Ragland RN [place] ([id number]) Service: Nursing Author Type: Registered Nurse Type: [...] RN progress on 2020-05 PROGRESS HNO ID: [id number] [place] 05-28-2020 [place] Author: Vickie Beck [facility] Service: Hospital Medicine Medical Author Type: Resident Center Type: Progress Notes ([id number]) Filed: 05/28/2020 1:52 PM Note Text: Attestation [...] PM: You may reach the House Medicine corporate legal intern currently assigned to this patient by findin g their pager number on the treatment team (they will be assigned as the i ntern or resident). It is the last four digits in the phone number be ginning with ([phone]). We encourage the use of [employer] Secure Chat. SUBJECTIVE HPI: 39 year old F PMHx idiopathic pancreatitis, hepatic cys ts presenting to the ED with intractable nausea and vomiting as well as RU Q abdominal pain for the past 3 days. States that she called her GI doct or Dr. Winn and he told her to come into the ED. [facility] Winn. [...] operative no on OPERATIVE NO HNO ID: [id number] Normal 05-28-20 [place] [facility] Author: [facility] Service: Gastroenterology ([id number]) Author Type: Physician Type: Operative Report Filed: 05/28/2020 1:07 PM Note Text: OPERATIVE/PROCEDURE REPORT LOG ID: [id number] Surgery/Procedure Date: 05/28/2020 Incision/Procedure Start Time: 12:32 PM Incision Close/Procedure End Time: 1:00 PM Surgeon(s)/Proceduralist(s) and Admissions Director(s): Surgeon(s) and Role: * [facility] - Primary No Additional Staff Procedure(s): [...] PPI. nursing prog on NURSING HNO ID: [id number] Normal 05-28-2020 [employer] Author: Rupal (Rn) VIN [facility] General Service: [...] Erythrocyte distribution 13.2 11.7-14.4 % Normal 05-28 [facility] width (RBC) [Ratio] System (39872) Comment: Performed By: #### LIP #### [facility] [address] [place], [place] [address] Hematocrit (Bld) [Volume 32.2 34.1-44.9 % Low 05-28 [facility]] System (00 000) Comment: Performed By: #### LIP #### [facility] [address] [place], [place] [address] Hemoglobin (Bld) [Mass/Vol] 10.1 11.2-15.7 g/dL Low [employer] [facility] (00 000) Comment: Performed By: #### LIP #### [facility] [address] [place], [place] [address] MCH (RBC) [Entitic mass] 28.5 25.6-32.2 pg Normal 05-28 [place] [facility] (00 000) Comment: Performed By: #### LIP #### [facility] [address] [place], [place] [address] MCHC (RBC) [Mass/Vol] 31.4 31.6-34.8 % Low 05-28-20 20 [employer] System (43591) Comment: Performed By: #### LIP #### [facility] [address] [place], [place] [address] MCV (RBC) [Entitic vol] 90.7 79.4-94.8 fl Normal 2019 [facility] (00 000) Comment: Performed By: #### LIP #### [facility] [address] [place] [address] Platelet mean volume (Bld) 10.7 9.4-12.[address] [facility] [Entitic vol] System (41466) Comment: Performed By: #### LIP #### [facility] [address] [place] [id number] Platelets (Bld) [#/Vol] 186 182-369 thou/cmm Normal 2019 [facility] (00 000) Comment: Performed By: #### LIP #### [facility] [address] [place] [address] RBC (Bld) [#/Vol] 3.55 3.93-5.22 mil/cmm Low 05-28-2020 [facility] (57319) Comment: Performed By: #### LIP #### [facility] [address] [place] [address] RDW SD 43.3 36.4-46.3 fl Normal 05-28-2020 [facility] (39933) Comment: Performed By: #### LIP #### [facility] [address] [place] [id number] WBC (Bld) [#/Vol] 6.36 3.98-10.04 thou/cmm Normal 05-28-2020 [facility] (00 000) Comment: Performed By: #### LIP #### [facility] [address] [place] [address] consult on CONSULT HNO ID: [id number] Normal 05-28-2020 [facility] Author: Ramone Albarado [facility] Service: Pain Management ([id number]) Author Type: Physician Type: Consults Filed: 05/28/2020 9:09 AM Note Text: SALLY MCGREGOR 39 year old PAIN CONSULTATION: Abdominal pain, history of idiopathic [place]du[place] creatitis. 24 HOUR COMFORT MEDICATIONS: Oxycodone 10 mg x 3 Quetiapine 100 mg daily [place] prescription history Shows occasional use of opiates, [...] hepatic cysts, and no evidence of ac [place] pancreatitis with normal lipase, and CBC. At this time, not experiencing any fever, chills, sweats, he matemesis, hematochezia, additional GI, , constitutional, pulmonary, or other symptoms. Current Facility-Administered Medications Medication Dose Route Frequency Provider Last Rate Last Dose - oxyCODONE IR 10 mg tab(s) (ROXICODONE) 10 mg ORAL q 6 H WI N Maggi (Res) MD Mark 10 mg [...] (TYLENOL) 650 mg ORAL q 4 H WI N Eduar (Res) Metry - hyoscyamine (LEVSIN) [...] Approx. 3 cigarettes daily-1 pack every w rosebud Substance Use Topics - Alcohol use: Yes [...] gap [Moles/Vol] 8 9-18 mmol/L Low 05-28-20 [facility] (89792) Comment: Performed By: #### LIP #### [facility] [address] [place] [address] Calcium [Mass/Vol] 7.2 8.5-10.2 mg/dL Low 05-28-2020 [facility] (24754) Comment: Performed By: #### LIP #### [facility] [address] [place], [place] [address] Chloride [Moles/Vol] 111 97-105 mmol/L High 0 [facility] (26282) Comment: Performed By: #### LIP #### [facility] [address] [place], [place] [address] CO2 Blood 22 22-30 mmol/L Normal 05-28-2020 [facility] (66463) Comment: Performed By: #### LIP #### [facility] [address] [place], [place] [address] Creatinine [Mass/Vol] 0.69 0.58-0.96 mg/dL Normal 05-28-20 [facility] (00 000) Comment: Performed By: #### LIP #### [facility] [address] [place], [place] [address] Glucose [Mass/Vol] 73 74-99 mg/dL Low 05-28-2020 [facility] (82106) Comment: Result Comment: The [place] Diabetes Association (ADA) provides guidance for cutoff [...] Standards of Medical Care in Diabetes 2016; [place] Diabetes Association. Diabetes Care. 2016;39(Suppl 1). Performed By: #### LIP #### [facility] [address] [place], [place] [address] Potassium [Moles/Vol] 2.9 3.7-5.1 mmol/L Low 05-28-20 [facility] (07690) Comment: Performed By: #### LIP #### [facility] [address] [place], [place] [address] Sodium [Moles/Vol] 141 136-144 mmol/L Normal 05-28-2020 [facility] (37810) Comment: Performed By: #### LIP #### [facility] [address] [place], [place] [address] Urea nitrogen [Mass/Vol] 5 7-21 mg/dL Low 05-28 [facility] (28391) Comment: Performed By: #### LIP #### [facility] [address] [place], [place] [address] anes preop on 05-28 ANES PREOP HNO ID: [id number] Normal 05-28-2020 [facility] Author: Delon Florence [facility] Service: Anesthesiology ([id number]) Author Type: Physician Type: Anesthesia PreOp Filed: [...] Benign liver cyst 05/24/2010 CT scan at [facility] 11/2009 and 04/2010 showe 4 mm increase in size . No pain. No elevated LFTs on 03/11/2010. - Calculus of kidney 05/17/[address] Nicolas: Hospitalized age 20, and again later -- no procedures so far ([facility], [facility], 1995 [facility]) - Cancer (HCC) - Diverticulosis - Dysmenorrhea [...] removed - TOTAL ABDOM HYSTERECTOMY 08/31/06 Hysterectomy, [facility] FAMILY HISTORY Problem Relation Age of Onset [...] Approx. 3 cigarettes daily-1 pack every w rosebud Substance Use Topics - Alcohol use: Yes [...] 1 g ORAL QID Maggi (Res) MD aMrk 1 g at 05/28/20918 - [MAR Hold [...] May 28, 2020 TIME: 12:15 PM CSN: [id number] anes post on 0 -14 ANES POST HNO ID: [id number] Normal 05-28-2020 [facility] Author: Delon Duenas [place] ([id number]) Service: Anesthesiology Author Type: Physician Type: Anesthesia [...] 1001 progress on 2020-05 PROGRESS HNO ID: [id number] [place] 05-27-2020 [place] Author: Vickie Srivastava General Service: Hospital Medicine Medical Author Type: Resident Center Type: Progress Notes ([id number]) Filed: 05/27/2020 4:19 PM Note Text: Attestation [...] PM: You may reach the House Medicine corporate legal intern currently assigned to this patient by findin g their pager number on the treatment team (they will be assigned as the i ntern or resident). It is the last four digits in the phone number be ginning with ([phone]). We encourage the use of [employer] Secure Chat. SUBJECTIVE HPI: 39 year old F PMHx idiopathic pancreatitis, hepatic cys ts presenting to the ED with intractable nausea and vomiting as well as RU Q abdominal pain for the past 3 days. States that she called her GI doct or Dr. Winn and he told her to come into the ED. She has a scope [facility] ed for 05/[address] Winn. Was [...] DAILY 05/25/201935 -- 05/25/201944 pneumatic compression stockings (ma,la) VTE Prophylaxis: VTE prophylaxis appropriate GI Prophylaxis: Indicated due to chronic acid suppression th erapy as an outpatient Telemetry: no Disposition: Home Code Status: Not on file Plan of care discussed with: Provider, RN, Patient SIGNATURE: Vickie Srivastava MD PATIENT NAME: Sally shannon DATE: May 27, 2020 TIME: 1:53 PM plan of care on PLAN OF CARE HNO ID: [id number] Normal 05-27-20 [facility] Author: Joe Romero) [facility] Service: Gastroenterology ([id number]) Author Type: Physician Admissions Director Type: Plan of Care Filed: 05/27/2020 1:17 [...] (TYLENOL) 650 mg ORAL q 4 H WI N - oxyCODONE IR 10 mg tab(s) (ROXICODONE) 10 mg ORAL q 6 H WI N Objective PHYSICAL EXAM: VITALS:BP 119/74 Pulse [...] 27, 2020 TIME: 1:15 PM PAGER/CONTACT #: Lead Applications Developer Pager hemogram on 2020-05 Erythrocyte distribution 13.3 11.7-14.4 % Normal 05-27 [employer] width (RBC) [Ratio] System (73854) Comment: Performed By: #### LIP #### [facility] [address] [place], [place] [address] Hematocrit (Bld) [Volume 35.9 34.1-44.9 % Normal 05-27 [employer] fraction] System (00 000) Comment: Performed By: #### LIP #### [facility] [address] [place], [place] [address] Hemoglobin (Bld) 11.3 11.2-15.7 g/dL Normal 05-27-2020 [facility] [Mass/Vol] System (0 0000) Comment: Performed By: #### LIP #### [facility] [address] [place], [place] [address] MCH (RBC) [Entitic mass] 29.1 25.6-32.2 pg Normal 05-27 [facility] (00 000) Comment: Performed By: #### LIP #### [facility] [address] [place], [place] [address] MCHC (RBC) [Mass/Vol] 31.5 31.6-34.8 % Low 05-27-20 20 [facility] (18129) Comment: Performed By: #### LIP #### [address] [address] MCV (RBC) [Entitic vol] 92.5 79.4-94.8 fl Normal 2019 [facility] (00 000) Comment: Performed By: #### LIP #### [facility] [address] [place], [place] [address] Platelet mean volume (Bld) 10.6 9.4-12.[address] [facility] [Entitic vol] System (66090) Comment: Performed By: #### LIP #### [facility] [address] [place], [place] [address] Platelets (Bld) [#/Vol] 197 182-369 thou/cmm Normal 2019 [facility] (00 000) Comment: Performed By: #### LIP #### [facility] [address] [place] [id number] RBC (Bld) [#/Vol] 3.88 3.93-5.22 mil/cmm Low 05-27-2020 [facility] (67622) Comment: Performed By: #### LIP #### [facility] [address] [place] [address] RDW SD 44.6 36.4-46.3 fl Normal 05-27-2020 [facility] (75606) Comment: Performed By: #### LIP #### [facility] [address] [place], [place] [address] WBC (Bld) [#/Vol] 6.15 3.98-10.04 thou/cmm Normal 05-27-2020 [facility] (00 000) Comment: Performed By: #### LIP #### [facility] [address] [place] [id number] basic metabolic panel on 2020-05-27 Anion gap [Moles/Vol] 10 9-18 mmol/L Normal 05-27-20 [facility] (85056) Comment: Performed By: #### LIP #### [facility] [address] [place] [id number] Calcium [Mass/Vol] 8.6 8.5-10.2 mg/dL Normal 05-27-2020 [facility] (04315) Comment: Performed By: #### LIP #### [facility] [address] [place] [id number] Chloride [Moles/Vol] 106 97-105 mmol/L High 0 [facility] (80573) Comment: Performed By: #### LIP #### [facility] [address] [place], [place] [address] CO2 Blood 24 22-30 mmol/L Normal 05-27-2020 [facility] (90388) Comment: Performed By: #### LIP #### [facility] [address] [place], [place] [address] Creatinine [Mass/Vol] 0.87 0.58-0.96 mg/dL Normal 05-27-20 [facility] (00 000) Comment: Performed By: #### LIP #### [facility] [address] [place], [place] [address] Glucose [Mass/Vol] 82 74-99 mg/dL Normal 05-27-2020 [facility] (63894) Comment: Result Comment: The [place] Diabetes Association (ADA) provides guidance for cutoff [...] Standards of Medical Care in Diabetes 2016; [place] Diabetes Association. Diabetes Care. 2016;39(Suppl 1). Performed By: #### LIP #### [facility] [address] [place], [place] [address] Potassium [Moles/Vol] 3.5 3.7-5.1 mmol/L Low 05-27-20 20 [facility] (78658) Comment: Performed By: #### LIP #### [facility] [address] [place], [place] [address] Sodium [Moles/Vol] 140 136-144 mmol/L Normal 05-27-2020 [facility] (92867) Comment: Performed By: #### LIP #### [facility] [address] [place], [place] [address] Urea nitrogen [Mass/Vol] 7 7-21 mg/dL Normal 05-27 [facility] (93233) Comment: Performed By: #### LIP #### [facility] [address] [place], [place] [address] progress on 2020-05 PROGRESS HNO ID: [id number] Normal 05-26-2020 [place] Author: Vickie Srivastava [facility] Service: Hospital Medicine Medical Author Type: Resident Center Type: Progress Notes ([id number]) Filed: 05/26/2020 2:11 PM Note Text: Attestation signed by Oh Arreaga at 05/26/2020 2:23 PM Attending Note I personally saw and examined the patient on 05/26/20. I rev iewed the resident's note. I agree with the resident's assessment and plan unless otherwise noted. Signature: Oh Arreaga DO Date: 05/26/2020 Time: 2:23 PM Pager: [phone] HOUSE MEDICINE SERVICE PROGRESS NOTE SERVICE DATE: May 26, 2020 SERVICE TIME: 1:53 PM NIGHT AND WEEKEND COVERAGE: From 6 AM to 5 PM: You may reach the House Medicine corporate legal intern currently assigned to this patient by findin g their pager number on the treatment team (they will be assigned as the i ntern or resident). It is the last four digits in the phone number be ginning with ([phone]). We encourage the use of [employer] Secure Chat. SUBJECTIVE HPI: 39 year old F PMHx idiopathic pancreatitis, hepatic cys ts presenting to the ED with intractable nausea and vomiting as well as RU Q abdominal pain for the past 3 days. States that she called her GI doct or Dr. Winn and he told her to come into the ED. She has a scope [facility] ed for 05/[address] Winn. Was [...] 05/25/20 193 -- 05/25/201944 pneumatic compression stockings (ma,la) VTE Prophylaxis: VTE prophylaxis appropriate GI Prophylaxis: Indicated due to chronic acid suppression th erapy as an outpatient Telemetry: no Disposition: Home Code Status: Not on file Plan of care discussed with: Provider, RN, Patient SIGNATURE: Vickie Srivastava MD PATIENT NAME: Sally shannon DATE: May 26, 2020 TIME: 1:53 PM hemogram on 2020-05 Erythrocyte distribution 13.3 11.7-14.4 % Normal 05-26 [place] [facility] width (RBC) [Ratio] System (97249) Comment: Performed By: #### CBC1 #### [address] [address] Hematocrit (Bld) [Volume 33.7 34.1-44.9 % Low 05-26 [place] [facility] fraction] System (00 000) Comment: Performed By: #### CBC1 #### [address] [address] Hemoglobin (Bld) [Mass/Vol] 10.8 11.2-15.7 g/dL Low [facility] (00 000) Comment: Performed By: #### CBC1 #### [facility] [address] [place], [place] [address] MCH (RBC) [Entitic mass] 29.3 25.6-32.2 pg Normal 05-26 [facility] (00 000) Comment: Performed By: #### CBC1 #### [facility] [address] [place], [place] [address] MCHC (RBC) [Mass/Vol] 32.0 31.6-34.8 % Normal 05-26-20 20 [facility] (65937) Comment: Performed By: #### CBC1 #### [facility] [address] [place], [place] [address] MCV (RBC) [Entitic vol] 91.3 79.4-94.8 fl Normal 2019 [facility] (00 000) Comment: Performed By: #### CBC1 #### [facility] [address] [place], [place] [address] Platelet mean volume (Bld) 10.8 9.4-12.[address] [facility] [Entitic vol] System (82004) Comment: Performed By: #### CBC1 #### [facility] [address] [place], [place] [address] Platelets (Bld) [#/Vol] 226 182-369 thou/cmm Normal 2019 [facility] (00 000) Comment: Performed By: #### CBC1 #### [facility] [address] [place], [place] [address] RBC (Bld) [#/Vol] 3.69 3.93-5.22 mil/cmm Low 05-26-2020 [facility] (11792) Comment: Performed By: #### CBC1 #### [facility] [address] [place], [place] [address] RDW SD 44.3 36.4-46.3 fl Normal 05-26-2020 [facility] (20501) Comment: Performed By: #### CBC1 #### [facility] [address] [place], [place] [address] WBC (Bld) [#/Vol] 9.78 3.98-10.04 thou/cmm Normal 05-26-2020 [facility] (00 000) Comment: Performed By: #### CBC1 #### [facility] [address] [place], [place] [address] coronavirus 2019 on 2020-05-26 COVID 19 Result CERTIFIED NURSE OPERATING ROOM Negative CORNESonya Normal 05-26-2020 [facility] (90526) Comment: Result Comment: Negative for COVID19 (SARS CoV2) by PCR. This test was developed and its performance characteristics determined by [facility] [place]. This test has bee n authorized by [...] issued on November 12, 2019. Performing Laboratory: [facility] [address] [place] [address] Performed By: #### CD19X ### # [address] [address] consult on CONSULT HNO ID: [id number] Normal 05-26-2020 [facility] Author: Joe Romero) [facility] Service: Gastroenterology ([id number]) Author Type: Physician Admissions Director Type: Consults Filed: 05/26/2020 11:22 AM Note [...] Benign liver cyst 05/24/2010 CT scan at [facility] 11/2009 and 04/2010 showe 4 mm increase in size . No pain. No elevated LFTs on 03/11/2010. - Calculus of kidney 05/17/[address] Nicolas: Hospitalized age 20, and again later -- no procedures so far ([facility] [place], 1995 [facility]) - Cancer (HCC) - Diverticulosis - Dysmenorrhea [...] removed - TOTAL ABDOM HYSTERECTOMY 08/31/06 Hysterectomy, [facility] FAMILY HISTORY Problem Relation Age of Onset [...] Approx. 3 cigarettes daily-1 pack every w rosebud Substance Use Topics - Alcohol use: Yes [...] (TYLENOL) 650 mg ORAL q 4 H WI N ALLERGIES Allergen Reactions - Penicillins Rash [...] 26, 2020 TIME: 11:10 AM PAGER/CONTACT #: [phone] After 3PM please use on-call paging system basic metabolic panel on 2020-05-26 Anion gap [Moles/Vol] 9 9-18 mmol/L Normal 05-26-20 20 [facility] (84193) Comment: Performed By: #### BMP #### [facility] [address] [place], [place] [address] Calcium [Mass/Vol] 9.0 8.5-10.2 mg/dL Normal 05-26-2020 [facility] (29979) Comment: Performed By: #### BMP #### [facility] [address] [place], [place] [address] Chloride [Moles/Vol] 104 97-105 mmol/L Normal 0 [facility] (88500) Comment: Performed By: #### BMP #### [facility] [address] [place], [place] [address] CO2 Blood 25 22-30 mmol/L Normal 05-26-2020 [facility] (34437) Comment: Performed By: #### BMP #### [facility] [address] [place], [place] [address] Creatinine [Mass/Vol] 0.86 0.58-0.96 mg/dL Normal 05-26-20 20 [facility] (00 000) Comment: Performed By: #### BMP #### [facility] [address] [place], [place] [address] Glucose [Mass/Vol] 87 74-99 mg/dL Normal 05-26-2020 [facility] (02391) Comment: Result Comment: The [place] Diabetes Association (ADA) provides guidance for cutoff [...] Standards of Medical Care in Diabetes 2016; [place] Diabetes Association. Diabetes Care. 2016;39(Suppl 1). Performed By: #### BMP #### [facility] [address] [place], [place] [address] Potassium [Moles/Vol] 3.5 3.7-5.1 mmol/L Low 05-26-20 20 [facility] (36546) Comment: Performed By: #### BMP #### [facility] [address] [place], [place] [address] Sodium [Moles/Vol] 138 136-144 mmol/L Normal 05-26-2020 [facility] (75783) Comment: Performed By: #### BMP #### [address] [address] Urea nitrogen [Mass/Vol] 9 7-21 mg/dL Normal 05-26 [facility] (17489) Comment: Performed By: #### BMP #### [address] [address] urine drug screen o n 2020-05-25 Urine Alcohol <11 0-11 Normal 05-25-2020 [facility] (49258) Comment: Performed By: #### UDRG3 ### # [address] [address] Urine Amphetamine NEGATIVE NEGATIVE Normal 05-25-2020 [facility] (10009) Comment: Performed By: #### UDRG3 ### # [address] [address] Urine Barbiturates NEGATIVE NEGATIVE Normal 05-25-2020 [facility] (27908) Comment: Performed By: #### UDRG3 ### # [address] [address] Urine Benzodiazepine NEGATIVE NEGATIVE Normal 0 [facility] (00 000) Comment: Performed By: #### UDRG3 ### # [address] [address] Urine Cocaine Metab NEGATIVE NEGATIVE Normal 05-25-2020 [facility] (80213) Comment: Performed By: #### UDRG3 ### # [address] [address] Urine Opiates see below NEGATIVE Abnormal 05-25-2020 [facility] (06272) Comment: Result Comment: PRESUMPTIVE POSITIVE Performed By: #### UDRG3 ### # [facility] [address] [place], [place] [address] Urine Oxycodone NEGATIVE NEGATIVE Normal 05-25-2020 [facility] (22123) Comment: Performed By: #### UDRG3 ### # [facility] [address] [place], [place] [address] Urine PCP NEGATIVE NEGATIVE Normal 05-25-2020 [facility] (52857) Comment: Result Comment: Test Cutoff Unit Amphetamines 1000 ng/mL Barbiturates 200 ng/mL Benzodiazepines 200 ng/mL Cannabinoids 50 ng/mL Cocaine 300 ng/mL Opiates 300 ng/mL Oxycodone 100 ng/mL Phencyclidine 25 ng/mL Reference Range: Negative at cutoff threshold Immunoassay screen only. Aerial Photographer ss reactivity with other substances can occur [...] the same specimen through the laboratory at ([phone]) if contact ed within 48 hours of initial 1. Substance Abuse and [facility] (2012). Clini sam Drug Testing in Primary Care Technical Assistance Publica tion Series 32. Department of Health and Human Services, [place], p.10. Performed By: #### UDRG3 ### # [facility] [address] [place], [place] [address] Urine THC NEGATIVE NEGATIVE Normal 05-25-2020 [facility] (76910) Comment: Performed By: #### UDRG3 ### # [facility] [address] [place], [place] [address] urinalysis routine on 2020-05-25 RBC LM.HPF (Urine sed) 0.0-3 0.0-5.[address] [facility] [#/Area] System (00 000) Comment: Performed By: #### URIN2 ### # [facility] [address] [place], [place] [address] Bacteria LM.HPF (Urine sed) NONE None Normal [facility] [#/Area] (96020) Comment: Performed By: #### URIN2 ### # [facility] [address] [place], [place] [address] Ep Cells Urine 21.5 0.0-5.0 /hpf High 05-25-2020 [facility] (14334) Comment: Performed By: #### URIN2 ### # [facility] [address] [place], [place] [address] Hyaline Cast 0.0 0.0-1.0 /lpf Normal 05-25-2020 [facility] (85048) Comment: Performed By: #### URIN2 ### # [facility] [address] [place], [place] [address] WBC LM.HPF (Urine sed) 2.9 0.0-5.0 /hpf Normal 020 [facility] [#/Area] System (00 000) Comment: Performed By: #### URIN2 ### # [facility] [address] [place], [place] [address] Appearance (U) CLOUDY Normal 05-25-2020 [facility] (22273) Comment: Performed By: #### URIN2 ### # [facility] [address] [place], [place] [address] Bilirubin (U) NEGATIVE Negative mg/dL Normal 05-25-2020 [facility] [Mass/Vol] System (0 0000) Comment: Performed By: #### URIN2 ### # [facility] [address] [place], [place] [address] Color (U) YELLOW Normal 05-25-2020 [facility] (65848) Comment: Performed By: #### URIN2 ### # [facility] [address] [place], [place] [address] Glucose Ql (U) NEGATIVE Negative Normal 05-25-2020 [facility] (54543) Comment: Performed By: #### URIN2 ### # [facility] [address] [place], [place] [address] Hemoglobin,Urine NEGATIVE Negative Normal 05-25-2020 [facility] ([id number]) Comment: Performed By: #### URIN2 ### # [facility] [address] [place], [place] [address] Ketone Urine NEGATIVE Negative Normal 05-25-2020 [facility] (45819) Comment: Performed By: #### URIN2 ### # [facility] [address] [place], [place] [address] Leukocytes Esterase NEGATIVE Negative Normal 05-25-2020 [facility] (36263) Comment: Performed By: #### URIN2 ### # [facility] [address] [place], [place] [address] Nitrites Urine NEGATIVE Negative Normal 05-25-2020 [facility] (63383) Comment: Performed By: #### URIN2 ### # [address] [address] pH (U) 5.5 5.0-8.0 [pH] Normal 05-25-2020 [facility] (50370) Comment: Performed By: #### URIN2 ### # [facility] [address] [place], [place] [address] Protein (U) [Mass/Vol] NEGATIVE Negative mg/dL Normal 020 [facility] (00 000) Comment: Performed By: #### URIN2 ### # [facility] [address] [place], [place] [address] Specific [place], Ur 1.024 1.005-1.030 Normal 020 [facility] (00 000) Comment: Performed By: #### URIN2 ### # [facility] [address] [place], [place] [address] Urobilinogen,Ur 0.2 0.2-1.0 EU/dL Normal 05-25-2020 [facility] (36693) Comment: Performed By: #### URIN2 ### # [facility] [address] [place], [place] [address] nursing prog on 202 NURSING PROG HNO ID: [id number] Normal 05-25-20 [facility] Author: Eleanor (Rn) VIN Parrish [place] ([id number]) Service: ? Author Type: Registered Nurse Type: [...] Lipase Blood 25 16-61 U/L Normal 05-25-2020 [facility] (83522) Comment: Performed By: #### LIP #### [place] [address] hosp on 2020-05-25 HOSP Patient:Sally Mcgregor Normal 05-15 [place] MRN: General Height:5' 1(1.549 m) Medical Weight:200 lb 6.4 oz (90.901 kg) Center Outpatient Medications as of 05/28/20: ([id number]) hyoscyamine (LEVSIN) 0.125 mg tablet sucralfate (CARAFATE) [...] 32.2 % 05/28/2020 44.9 34.1 Progress Notes ([facility]): Pierce Barber Ma 05/25/2020 4:24 PM Signed [...] since Thursday night. Patient was seen at [place] ED on Thursday night where she was given fluids, told her labs looked fine and was discharged home. Sameer cheney follows with Dr. Winn for GI as she has a 9 cm cyst in her liver and history of pancreatitis . Patient is scheduled for endoscopy and ultrasound on . She states that Dr. Winn told her to come to [facility] ED for specific type of imaging but [...] v Family history: of suicide, attempts, or [place] 1 psychiatri c disorders requiring hospitalization v Precipitants/Stressors/Interpersonal: triggering events le ading to humiliation, shame or despair (e.g; loss of relationship, fi nancial or Health status-real or antici pated). Ongoing medical illness (zohreh. LINOTYPER disorders, pain). Intoxication. Family turmoil/chaos. History of Physical or sexual abuse. Social isolation. v Change in treatment: discharge from psychiatric hospital, provider or treatment change v Access to firearms 2.??? PROTECTIVE FACTORS pro tective factors, even if present, may not counteract significant acute risk v Internal: ability to cope with stress, church beliefs, frustration tolerance v External: responsibility to [...] Benign liver cyst 05/24/2010 CT scan at [facility] 11/2009 and 04/2010 showe 4 mm increase in size . No pain. No elevated LFTs on 03/11/2010. - Calculus of kidney 05/17/[address] Nicolas: Hospitalized age 20, a nd again later -- no procedures so far ([facility], [facility], 1995 [facility]) - Cancer (HCC) - Diverticulosis - Dysmenorrhea [...] removed - TOTAL ABDOM HYSTERECTOMY 08/31/06 Hysterectomy, [facility] FAMILY HISTORY Problem Relation Age of Onset [...] Approx. 3 cigarettes daily-1 pack every w rosebud Substance and Sexual Activity - Alcohol use: [...] assessment and plan unless otherwise noted. Signature: Rbo Valladares MD Date: 05/25/2020. Time: 6:27 PM HOUSE MEDICINE SERVICE HISTORY AND PHYSICAL SERVICE DATE: May 25, 2020 SERVICE TIME: 4:00 PM NIGHT AND WEEKEND COVERAGE: From 6 AM to 5 PM: You may reach the House Medicine corporate legal intern currently assigned to this patien t by finding their pager number on the treatment team (they will be assigned as the corporate legal intern or resident). It is the last four digits in the phone num alyson beginning with ([phone]). We encourage the use of [employer] Secure Chat. PCP: Marcelino Mejia MD Admitting [...] Benign liver cyst 05/24/2010 CT scan at [facility] 11/2009 and 04/2010 showe 4 mm increase in size . No pain. No elevated LFTs on 03/11/2010. - Calculus of kidney 05/17/[address] Nicolas: Hospitalized age 20, a nd again later -- no procedures so far ([facility] [place] [facility], [place] [facility]) - Cancer (HCC) - Diverticulosis - Dysmenorrhea [...] Approx. 3 cigarettes daily-1 pack every w rosebud Substance Use Topics - Alcohol use: Yes [...] Benign liver cyst 05/24/2010 CT scan at [facility] 11/2009 and 04/2010 showe 4 mm increase in size . No pain. No elevated LFTs on 03/11/2010. - Calculus of kidney 05/17/[address] Nicolas: Hospitalized age 20, a nd again later -- no procedures so far ([facility], most, 1995 [facility]) - Cancer (HCC) - Diverticulosis - Dysmenorrhea [...] Approx. 3 cigarettes daily-1 pack every w rosebud Substance Use Topics - Alcohol use: Yes [...] (TYLENOL) 650 mg ORAL q 4 H WI N ALLERGIES Allergen Reactions - Penicillins Rash [...] 26, 2020 TIME: 11:10 AM PAGER/CONTACT #: [phone] After 3PM please use on-call paging system Vickie Srivastava MD 05/26/2020 2:11 PM Attested Attestation signed by Oh Arreaga at 05/26/2020 2:23 PM Attending Note I personally saw and examined the patient on 05/26/20. I rev iewed the resident's note. I agree with the resident's assessment and plan unless otherwise noted. Signature: Oh Arreaga, DO Date: 05/26/2020 Time: 2:23 PM Pager: [phone] HOUSE MEDICINE SERVICE PROGRESS NOTE SERVICE DATE: May 26, 2020 SERVICE TIME: 1:53 PM NIGHT AND WEEKEND COVERAGE: From 6 AM to 5 PM: You may reach the House Medicine corporate legal intern currently assigned to this patien t by finding their pager number on the treatment team (they will be assigned as the corporate legal intern or resident). It is the last four digits in the phone num alyson beginning with ([phone]). We encourage the use of [employer] Secure Chat. SUBJECTIVE HPI: 39 year old [...] 05/25/20 193 -- 05/25/201944 pneumatic compression stockings (ma,oh) VTE Prophylaxis: VTE prophylaxis appropriate GI Prophylaxis: [...] (TYLENOL) 650 mg ORAL q 4 H WI N - oxyCODONE IR 10 mg tab(s) (ROXICODONE) 10 mg ORAL q 6 H WI N Objective PHYSICAL EXAM: VITALS:BP 119/74 Pulse [...] 27, 2020 TIME: 1:15 PM PAGER/CONTACT #: Lead Applications Developer Pager Vickie Srivastava MD 05/27/2020 4:19 PM [...] PM: You may reach the House Medicine corporate legal intern currently assigned to this patien t by finding their pager number on the treatment team (they will be assigned as the corporate legal intern or resident). It is the last four digits in the phone num alyson beginning with ([phone]). We encourage the use of [employer] Secure Chat. SUBJECTIVE HPI: 39 year old [...] Note Patient Name: Sally Mcgregor Patient Location: [id number] Attempted to draw AM labs. Was unsuccessful x 2 attempts. This note was completed by: VIN Conley MD 05/28/2020 8:57 AM Incomplete HOUSE MEDICINE SERVICE PROGRESS NOTE SERVICE DATE: May 28, 2020 SERVICE TIME: 1:53 PM NIGHT AND WEEKEND COVERAGE: From 6 AM to 5 PM: You may reach the House Medicine corporate legal intern currently assigned to this patien t by finding their pager number on the treatment team (they will be assigned as the corporate legal intern or resident). It is the last four digits in the phone num alyson beginning with ([phone]). We encourage the use of [employer] Secure Chat. SUBJECTIVE HPI: 39 year old [...] delete will not show in completed note) :[id number] } Intractable nausea and vomiting Intractable nausea [...] delete will not show in completed note) :[id number] } Medication and Non-Pharmacologic VTE Prophylaxis/Anticoagula nts Anticoagulant AND Antiplatelet Medications (From admission, onward) Start Dose Route Frequency Ordered Stop 05/25/201999 enoxaparin 40 mg injection (LOVENOX) (Me dical Risk Categories) 40 mg SUBCUTANEOUS DAILY 05/25/201935 -- 05/25/201944 pneumatic compression stockings (ma,oh) VTE Prophylaxis: VTE prophylaxis appropriate GI Prophylaxis: [...] mg x 3 Quetiapine 100 mg daily [place] prescription history Shows occasional use of opiates, [...] (ROXICODONE) 10 mg ORAL q 6 H WI N Maggi (Kiran) MD Mark 10 mg [...] Approx. 3 cigarettes daily-1 pack every w rosebud Substance Use Topics - Alcohol use: Yes [...] Benign liver cyst 05/24/2010 CT scan at [facility] 11/2009 and 04/2010 showe 4 mm increase in size . No pain. No elevated LFTs on 03/11/2010. - Calculus of kidney 05/17/[address] Nicolas: Hospitalized age 20, a nd again later -- no procedures so far ([facility] [place] [facility], [place] [facility]) - Cancer (HCC) - Diverticulosis - Dysmenorrhea [...] Approx. 3 cigarettes daily-1 pack every w rosebud Substance Use Topics - Alcohol use: Yes [...] q 4 H PRN Eduar (Res) Metry Allergies: ALLERGIES Allergen Reactions - [...] May 28, 2020 TIME: 12:15 PM CSN: [id number] history physical on 2020-05-25 HISTORY HNO ID: [id number] Normal 05-25-2020 [place] PHYSICAL Author: Maggi Flores MD General Service: Hospital Medicine Medical Author Type: Resident Center Type: [facility] ([id number]) Filed: 05/25/2020 5:42 PM Note Text: Attestation [...] PM: You may reach the House Medicine corporate legal intern currently assigned to this patient by findin g their pager number on the treatment team (they will be assigned as the i ntern or resident). It is the last four digits in the phone number be ginning with ([phone]). We encourage the use of Epic Secure [...] Benign liver cyst 05/24/2010 CT scan at [facility] 11/2009 and 04/2010 showe 4 mm increase in size . No pain. No elevated LFTs on 03/11/2010. - Calculus of kidney 05/17/[address] Nicolas: Hospitalized age 20, and again later -- no procedures so far ([facility], [facility], [facility]) - Cancer (HCC) - Diverticulosis - Dysmenorrhea [...] Approx. 3 cigarettes daily-1 pack every w rosebud Substance Use Topics - Alcohol use: Yes [...] Immature Grans 0.09 0.00-0.05 thou/cmm High 05-25-2020 [facility] (00 000) Comment: Performed By: #### CBCD1 ### # [place] [address] Abs Neut (ANC) 3.14 1.56-6.13 thou/cmm Normal 05-25-2020 [facility] (13367) Comment: Performed By: #### CBCD1 ### # [facility] [address] [place], [place] [address] Abs. Baso 0.06 0.01-0.08 thou/cmm Normal 05-25-2020 [facility] (27839) Comment: Result Comment: Smear scanne d; tech agrees with automated differential Performed By: #### CBCD1 ### # [facility] [address] [place], [place] [address] Abs. Bay 0.50 0.27-0.70 thou/cmm Normal 05-25-2020 [facility] (20386) Comment: Performed By: #### CBCD1 ### # [facility] [address] [place], [place] [address] Basophils/100 WBC (Bld) 0.7 % Normal 2019 [facility] (48972) Comment: Performed By: #### CBCD1 ### # [facility] [address] [place], [place] [address] Eosinophils (Bld) 0.30 0.00-0.31 thou/cmm Normal 05-25-2020 [facility] [#/Vol] [facility] (03170) Comment: Performed By: #### CBCD1 ### # [facility] [address] [place], [place] [address] Eosinophils/100 WBC (Bld) 3.6 % Normal 05-15 [facility] (08959) Comment: Performed By: #### CBCD1 ### # [facility] [address] [place], [place] [address] Immature Grans 1.10 % Normal 05-25-2020 [facility] (20742) Comment: Performed By: #### CBCD1 ### # [facility] [address] [place], [place] [address] Lymphocytes (Bld) [#/Vol] 4.34 1.18-3.74 thou/cmm High 05-15 [facility] (00 000) Comment: Performed By: #### CBCD1 ### # [facility] [address] [place], [place] [address] Lymphocytes/100 WBC (Bld) 51.5 % Normal 05-15 [facility] (59311) Comment: Performed By: #### CBCD1 ### # [facility] [address] [place], [place] [address] Monocytes/100 WBC (Bld) 5.9 % Normal 2019 [facility] (06360) Comment: Performed By: #### CBCD1 ### # [facility] [address] [place], [place] [address] Seg Neutrophil 37.2 % Normal 05-25-2020 [facility] (30410) Comment: Performed By: #### CBCD1 ### # [facility] [address] [place], [place] [address] Erythrocyte distribution 13.7 11.7-14.4 % Normal 05-25 [facility] width (RBC) [Ratio] System (30160) Comment: Performed By: #### CBCD1 ### # [facility] [address] [place], [place] [address] Hematocrit (Bld) [Volume 39.7 34.1-44.9 % Normal 05-25 [facility] fraction] System (00 000) Comment: Performed By: #### CBCD1 ### # [facility] [address] [place], [place] [address] Hemoglobin (Bld) 12.1 11.2-15.7 g/dL Normal 05-25-2020 [facility] [Mass/Vol] System (0 0000) Comment: Performed By: #### CBCD1 ### # [facility] [address] [place], [place] [address] MCH (RBC) [Entitic mass] 28.2 25.6-32.2 pg Normal 05-25 [facility] (00 000) Comment: Performed By: #### CBCD1 ### # [facility] [address] [place], [place] [address] MCHC (RBC) [Mass/Vol] 30.5 31.6-34.8 % Low 05-25-20 20 [facility] (86431) Comment: Performed By: #### CBCD1 ### # [address] [address] MCV (RBC) [Entitic vol] 92.5 79.4-94.8 fl Normal 2019 [facility] (00 000) Comment: Performed By: #### CBCD1 ### # [facility] [address] [place], [place] [address] Platelet mean volume (Bld) 11.0 9.4-12.[address] [facility] [Entitic vol] System (19715) Comment: Performed By: #### CBCD1 ### # [facility] [address] [place], [place] [address] Platelets (Bld) [#/Vol] 254 182-369 thou/cmm Normal 2019 [facility] (00 000) Comment: Performed By: #### CBCD1 ### # [facility] [address] [place], [place] [address] RBC (Bld) [#/Vol] 4.29 3.93-5.22 mil/cmm Normal 05-25-2020 [facility] (00 000) Comment: Performed By: #### CBCD1 ### # [facility] [address] [place], [place] [address] RDW SD 46.5 36.4-46.3 fl High 05-25-2020 [facility] (24830) Comment: Performed By: #### CBCD1 ### # [facility] [address] [place], [place] [address] WBC (Bld) [#/Vol] 8.43 3.98-10.04 thou/cmm Normal 05-25-2020 [facility] (00 000) Comment: Performed By: #### CBCD1 ### # [facility] [address] [place], [place] [address] ed prov note on ED PROV NOTE HNO ID: [id number] Normal 05-25-20 [facility] Author: Johnnie Long MD Center ([id number]) Service: Emergency Medicine Author Type: Physician Type: [...] 05/26/20 0014 ED PROV NOTE HNO ID: [id number] Normal 05-25-20 [facility] Author: Johnnie Long MD [place] ([id number]) Service: Emergency Medicine Author Type: Physician Type: [...] back since night. Patient was seen at [place] ED on Thursday night where sh shiva was given fluids, told her labs looked fine and was discharged home. Skyler maciel follows with Dr. Winn for GI as she has a 9 cm cyst in her liver and history of pancreatitis. Patient is scheduled for endoscopy and ultrasound on Thursday. She states that Dr. Winn told her t o come to [facility] ED for specific type of imaging but [...] v Family history: of suicide, attempts, or [place] 1 psychiatri c disorders requiring hospitalization v Precipitants/Stressors/Interpersonal: triggering events le ading to humiliation, shame or despair (e.g; loss of relationship, fi nancial or Health status-real or anticipated). Ongoing medical illness (zohreh. LINOTYPER disorders, pain). Intoxication. Family turmoil/chaos. Histor y of Physical or sexual abuse. Social isolation. v Change in treatment: discharge from psychiatric hospital, provider or treatment change v Access to firearms 2.??? PROTECTIVE FACTORS protective factors, even if present , may not counteract significant acute risk v Internal: ability to cope with stress, church beliefs, frustration tolerance v External: responsibility to [...] Benign liver cyst 05/24/2010 CT scan at [facility] 11/2009 and 04/2010 showe 4 mm increase in size . No pain. No elevated LFTs on 03/11/2010. - Calculus of kidney 05/17/[address] Nicolas: Hospitalized age 20, and again later -- no procedures so far ([facility] [place] [facility], [place] [facility]) - Cancer (HCC) - Diverticulosis - Dysmenorrhea [...] Approx. 3 cigarettes daily-1 pack every w rosebud Substance and Sexual Activity - Alcohol use: [...] ed note on ED NOTE HNO ID: [id number] Normal 05-25-2020 [facility] Author: Katharine Gonzalez RN [place] ([id number]) Service: Emergency Medicine Author Type: Registered Nurse Type: ED Notes Filed: 05/25/2020 6:31 PM Note Text: RN unavailable for report at 1830 ED NOTE HNO ID: [id number] Normal 05-25-2020 [facility] Author: Katharine Gonzalez RN [place] ([id number]) Service: Emergency Medicine Author Type: Registered Nurse Type: ED Notes Filed: 05/25/2020 5:58 PM Note Text: Dr. Mukherjee notified pt asking for something for pain. ED NOTE HNO ID: [id number] Normal 05-25-2020 [facility] Author: Katharine Gonzalez RN [place] ([id number]) Service: Emergency Medicine Author Type: Registered Nurse Type: ED Notes Filed: 05/25/2020 4:00 PM Note Text: Covid swab obtained and sent. ED NOTE HNO ID: [id number] Normal 05-25-2020 [facility] Author: Katharine Gonzalez RN [place] ([id number]) Service: Emergency Medicine Author Type: Registered Nurse Type: ED Notes Filed: 05/25/2020 3:08 PM Note Text: Pt to CT by cart. ED NOTE HNO ID: [id number] Normal 05-25-2020 [facility] Author: Katharine Gonzalez RN [place] ([id number]) Service: Emergency Medicine Author Type: Registered Nurse Type: ED Notes Filed: 05/25/2020 11:55 AM Note Text: Pt complains of heat flash Temperature adjusted. Resp unla bored. ED NOTE HNO ID: [id number] Normal 05-25-2020 [facility] Author: Katharine Gonzalez RN [place] ([id number]) Service: Emergency Medicine Author Type: Registered Nurse Type: ED Notes Filed: 05/25/2020 10:42 AM Note Text: Pt complains of itching after Dilaudid. No hives or SOB note dAzul Pierre notified and no orders received. Pt given ice. ED NOTE HNO ID: [id number] Normal 05-25-2020 [facility] Author: Katharine Gonzalez RN [place] ([id number]) Service: Emergency Medicine Author Type: Registered Nurse Type: ED Notes Filed: 05/25/2020 7:15 AM Note Text: Dr. Miranda notified pt needs SAFE-T form completed. ct abd/pel w ivcon on 2020-05-25 CT ABD/PEL W Final Report Normal 05-25-2020 [facility] on [facility] IVCON DATE OF EXAM: May 25 2020 3:15PM [facility] 0530 - CT ABD/PEL W IVCON / ([id number]) PROCEDURE REASON: Nausea, vomiting Physician Interpretation EXAMINATION: [...] obe suggestive of small areas of atelectasis. Yard Coupler (topogram) images: IMPRESSION: 1. No acute intra-abdominal/pelvic abnormalities are identif ied. 2. Bilateral nephrolithiasis. No hydronephrosis is identifie d. 3. Multiple hepatic cysts measuring up to 9.5 cm. 4. Findings consistent with fatty infiltration of liver. Concrete Finisher: PSCAudrey Transcribe Date/Time: May 25 2020 3:16P Dictated by : ALICE ALCARAZ MD This examination was interpreted and the report reviewed and electronically signed by: ALICE ALCARAZ MD on May 25 2020 3:27PM EST comprehensive metabolic panel on 2020-05-25 Albumin [Mass/Vol] 4.8 3.9-4.9 g/dL Normal 05-25-2020 [facility] (07965) Comment: Performed By: #### CMP #### [facility] [address] [place], [place] [address] ALP [Catalytic activity/Vol] 98 34-123 U/L Normal 0 05-25-2020 [facility] (00 000) Comment: Performed By: #### CMP #### [facility] [address] [place], [place] [address] ALT [Catalytic activity/Vol] 12 7-38 U/L Normal 0 05-25-2020 [facility] (00 000) Comment: Performed By: #### CMP #### [facility] [address] [place], [place] [address] Anion gap [Moles/Vol] 11 9-18 mmol/L Normal 05-25-20 [facility] (83559) Comment: Performed By: #### CMP #### [facility] [address] [place], [place] [address] AST [Catalytic activity/Vol] 14 13-35 U/L Normal 0 05-25-2020 [facility] (00 000) Comment: Performed By: #### CMP #### [facility] [address] [place], [place] [address] Bilirubin [Mass/Vol] 0.4 0.2-1.3 mg/dL Normal 0 [facility] (90047) Comment: Performed By: #### CMP #### [facility] [address] [place], [place] [address] Calcium [Mass/Vol] 9.7 8.5-10.2 mg/dL Normal 05-25-2020 [facility] (57463) Comment: Performed By: #### CMP #### [facility] [address] [place], [place] [address] Chloride [Moles/Vol] 104 97-105 mmol/L Normal 0 [facility] (48325) Comment: Performed By: #### CMP #### [facility] [address] [place], [place] [address] CO2 Blood 24 22-30 mmol/L Normal 05-25-2020 [facility] (57518) Comment: Performed By: #### CMP #### [facility] [address] [place], [place] [address] Creatinine [Mass/Vol] 0.95 0.58-0.96 mg/dL Normal 05-25-20 [facility] (00 000) Comment: Performed By: #### CMP #### [facility] [address] [place], [place] [address] Glucose [Mass/Vol] 95 74-99 mg/dL Normal 05-25-2020 [facility] (33715) Comment: Result Comment: The [place] Diabetes Association (ADA) provides guidance for cutoff [...] Standards of Medical Care in Diabetes 2016; [place] [employer] Association. Diabetes Care. 2016;39(Suppl 1). Performed By: #### CMP #### [facility] [address] [place], [place] [address] Potassium [Moles/Vol] 3.6 3.7-5.1 mmol/L Low 05-25-20 [facility] (53248) Comment: Performed By: #### CMP #### [facility] [address] [place], [place] [address] Protein [Mass/Vol] 8.0 6.3-8.0 g/dL Normal 05-25-2020 [facility] (64549) Comment: Performed By: #### CMP #### [facility] [address] [place], [place] [address] Sodium [Moles/Vol] 139 136-144 mmol/L Normal 05-25-2020 [facility] (45071) Comment: Performed By: #### CMP #### [facility] [address] [place], [place] [address] Urea nitrogen [Mass/Vol] 11 7-21 mg/dL Normal 05-25 [facility] (42856) Comment: Performed By: #### CMP #### [facility] [address] [place], [place] [address] cnpn on 2020-05-25 CNPN Telephone (GSTNOR) Normal 05-25-2020 [facility] SALLY MCGREGOR ([id number]) 1980 [facility] Time Provider Department ([id number]) 05/25/20 JOHNNY WINN GSTNOR During your visit [...] 05/25/20 progress on 2020-05 PROGRESS HNO ID: [id number] Normal 05-24-2020 [facility] Author: Johnny Winn [place] ([id number]) Service: ? Author Type: Physician Type: Progress [...] virtual [facility]med[facility] because of the [...] go to the ED. Patient went to [place] ED and mentions 'nothing was done. T [...] Benign liver cyst 05/24/2010 CT scan at [facility] 11/2009 and 04/2010 showe 4 mm increase in size . No pain. No elevated LFTs on 03/11/2010. - Calculus of kidney 05/17/[address] Nicolas: Hospitalized age 20, and again later -- no procedures so far ([facility], most, [facility]) - Cancer (HCC) - Diverticulosis - Dysmenorrhea [...] Approx. 3 cigarettes daily-1 pack every w rosebud Substance Use Topics - Alcohol use: Yes [...] the ED yesterday - she went to [place] ED and was told that pancreas levels [...] for nausea. Advised to go to the [facility] ED if no improvement in s ymptoms. During this patient visit I have spent approximately 15 luna los in counseling regarding interpretation, education and coordinat ion of care. Johnny Winn MD 3:22 PM progress on 2020-05 PROGRESS HNO ID: [id number] Normal 05-23-2020 [facility] Author: Johnny Winn [place] ([id number]) Service: Gastroenterology Author Type: Physician Type: Progress Notes Filed: 05/24/2020 8:09 AM Note Text: Returned patient?s call. She reported worsening RUQ pain ass ociated with nausea vomiting diarrhea and bloating. Denied any fever/chil ls, cough. Advised her to go to the ED to r/o pancreatitis, complicatio n in the large liver cysts. She voiced understanding. Johnny Winn MD [facility] on 2020-05-18 CNPN Telephone (FAMPWS) Normal 05-18-2020 [place] [facility] SALLY MCGREGOR ([id number]) 1980 [facility] Date Time Provider Department ([id number]) 05/18/20 [facility] During your visit today, we recorded [...] uns pecified laterality [M25.519] Order(s):CONSULT TO ORTHOPAEDICS [[id number]] Order #: [id number] ty: 1 FUTURE Prescriptions as of 05/18/2020 [...] * * *Final Report* * * Normal [facility] AP/ZENOBIA AP/OTHR DATE OF EXAM: May 17 2020 12:16PM [place] ([id number]) RT WOX 5253 - XR SHLDR >/=3V AP/ZENOBIA AP/OTHR RT / [id number] PROCEDURE REASON: Acute pain of right shoulder [...] abnormalities identified i n the right shoulder. Concrete Finisher: HERMINIO Transcribe Date/Time: May 17 2020 12:18P Dictated by : KORI BLANKENSHIP MD This examination was interpreted and the report reviewed and electronically signed by: KORI BLANKENSHIP MD on May 17 2020 12:20PM EST [id number] progress on 2020-05 PROGRESS HNO ID: [id number] Normal 05-17-2020 [facility] Author: Kylee PickardRtVianey Lea Mata ([id number]) Service: ? Author Type: Polishing Machine Operator Type: Progress Notes Filed: 05/17/2020 12:17 PM [...] IV DATA: Not applicable SIGNED BY: Kylee Davneport RT May 17, 2020 12:08 PM PROGRESS HNO ID: [id number] Normal 05-17-2020 [facility] Author: Kenia Mary) Bartolo Mata ([id number]) Service: ? Author Type: Nurse Practitioner Type: Progress Notes Filed: 05/17/2020 12:45 PM Note Text: Visit Date: May 17, 2020 Patient Name: Ms.Nichole Jeana Mcgregor Date of : 1980 MRN/E #: [id number] Chief Complaint Patient presents with: right shoulder [...] Benign liver cyst 05/24/2010 CT scan at [facility] 11/2009 and 04/2010 showe 4 mm increase in size . No pain. No elevated LFTs on 03/11/2010. - Calculus of kidney 05/17/[address] Nicolas: Hospitalized age 20, and again later -- no procedures so far ([facility], most, 1995 [facility]) - Dysmenorrhea - History of blood transfusion [...] Approx. 3 cigarettes daily-1 pack every w rosebud Substance Use Topics - Alcohol use: Yes [...] 2020-05-17 CNOV Office Visit (UCWSTR) Normal 05-17-[address] [place] [address] [facility] SALLY MCGREGOR ([id number]) 1980 [facility] Time Provider Department ([id number]) 05/17/20 11:45 AM [facility] During your visit today, we recorded the following informati on about you: Temperature Pulse Respiration Blood pressure 97.8 degrees 86/minute 16/minute 124/82 Weight 89.9 kg Kenia Mcfarland APRN.CNP 05/17/2020 12:45 PM Signed Visit Date: May 17, 2020 Patient Name: Ms.Nichole Jeana Mcgregor Date of : 1980 MRN/E #: [id number] Chief Complaint Patient presents with: right shoulder [...] Benign liver cyst 05/24/2010 CT scan at [facility] 11/2009 and 04/2010 showe 4 mm increase in size . No pain. No elevated LFTs on 03/11/2010. - Calculus of kidney 05/17/[address] Nicolas: Hospitalized age 20, a nd again later -- no procedures so far ([facility], most, 1995 [facility]) - Dysmenorrhea - History of blood transfusion [...] removed - TOTAL ABDOM HYSTERECTOMY 08/31/06 Hysterectomy, [facility] Social History Tobacco Use - Smoking status: Former Smoker Packs/day: 0.50 Years: 3.00 Pack years: 1.50 Types: Cigarettes Quit date: 01/12/2017 Years since quittin.3 - Smokeless tobacco: Never Used - Tobacco comment: Approx. 3 cigarettes daily-1 pack every w rosebud Substance Use Topics - Alcohol use: Yes [...] mean Date Reviewed: 05/17/2020 Reviewed by: Kenia PickardCan Filler) Workman - Fully Assessed Reason for Visit: right shoulder pain [Other] Cmt: fell in shoulder yesterday Primary Visit Diagnosis:Acute pain of right shoulder [M25.51 1] Order(s):XR SHOULDER GENERAL 3V OR MORE AP/TRUE AP/OTHER RT [[id number]] Order #: [id number]. #:[id number] Prescriptions as of 05/17/2020 Sig: PANTOPRAZOLE 40 [...] on 05/17/20 No panel information on 2020-05-17 [facility] ([id number]) cnpn on 2020-05-11 CNPN Telephone (GSTNOR) Normal 05-11-2020 [place] [facility] SALLY MCGREGOR ([id number]) 1980 [place] Date Time Provider Department ([id number]) 05/11/20 JOHNNY WINN GSTNOR During your visit [...] on 2020-05-11 CNCO Letter Text Normal 05-11-2020 [facility] ([id number]) progress on 2020-04 PROGRESS HNO ID: [id number] Normal 05-10-2020 [facility] Author: Johnny Winn [place] ([id number]) Service: ? Author Type: Physician Type: Progress [...] pathology on 2020-05-08 SURGICAL Specimen originated from [facility] Normal 05-08-2020 [place] PATHOLOGY Specimen #: [id number] Clinic Submitting Physician: JOHNNY WINN MD [place] ([id number]) FINAL DIAGNOSIS 1. Random colon, biopsy (A) [...] in one cassette. Gross examination performed at [facility], [address] [place] [address] [place] 05/08/2020 11:06:23 PM B. Received in [...] in one cassette. Gross examination performed at [facility], [address] [place] [address] JT 05/08/2020 11:23:05 PM Date of Report: 05/11/2020 Date of Procedure: 05/08/2020 Date of Receipt: 05/08/2020 Submitted by: JOHNNY WINN MD Location: [facility] Diagnostic interpretation performed at [facility], [address] [place] [address]. CLIA Number: [id number] pt ed on 2020-05-08 PT ED HNO ID: [id number] Normal 05-08-2020 [facility] Author: Penny Benedict RN [place] ([id number]) Service: ? Author Type: Registered Nurse Type: [...] history physical on 2020-05-08 HISTORY HNO ID: [id number] Normal 05-08-2020 [place] PHYSICAL Author: Johnny Winn [facility] Service: Gastroenterology [place] Author Type: Physician ([id number]) Type: HANDP Filed: 05/08/2020 12:46 PM Note [...] pre-op on 2019 ANES PRE-OP HNO ID: [id number] Normal 0 [facility] Author: Tania Mata ([id number]) Service: ? Author Type: Nurse Emergency Room Doctor Type: Anesthesia Preprocedure Evaluation Filed: 05/08/2020 12:36 [...] May 08, 2020 TIME: 12:26 PM CSN: [id number] anes postproc eval on 2020-05-08 ANES POSTPROC EVAL HNO ID: [id number] Normal [facility] Author: Tania Mata ([id number]) Service: ? Author Type: Nurse Emergency Room Doctor Type: Anesthesia Postprocedure Evaluation Filed: 05/08/2020 1:36 [...] May 08, 2020 TIME: 1:36 PM CSN: [id number] No panel information on 2020-05-08 Office Administrator [facility] ([id number]) Patient Name: Sally Mcgregor Procedure Date: 05/08/2020 [...] Recommendation: - Patient has a contact number [facility]. The signs and symptoms of [...] Estimated Blood Loss: Estimated blood loss: none. Office Administrator [facility] ([id number]) Patient Name: Sally Mcgregor Procedure Date: 05/08/2020 [...] on 2020-05-07 CNPN Telephone (GSTNOR) Normal 05-07-2020 [place] [facility] SALLY MCGREGOR ([id number]) 1980 [facility] Time Provider Department (39643) 05/07/20 JOHNNY WINN GSTNOR During your visit [...] not draw the celiac panel. Pierce Barber LABEL FOLDER Allergies As of Date: 05/07/2020 Noted Allergy [...] on 2020-05-01 CNPN Telephone (GSTNOR) Normal 05-01-2020 [place] [facility] SALLY MCGREGOR ([id number]) 1980 [place] Date Time Provider Department (83876) 05/01/20 JOHNNY WINN GSTNOR During your visit [...] elier was not drawn, left message with [facility] lab to contact patient for redraw Pierce [...] * * *Final Report* * * Normal [facility] - DATE OF EXAM: Apr 30 2020 4:13PM [place] ([id number]) [facility] 1232 - US ABD SPLEEN -NB / [...] cyst, enlarged compared to p rior study. Concrete Finisher: HERMINIO Transcribe Date/Time: Apr 30 2020 4:19P Dictated by : KORI BLANKENSHIP MD This examination was interpreted and the report reviewed and electronically signed by: KORI BLANKENSHIP MD on Apr 30 2020 4:27PM EST [id number] us abd right upper quadrant on 2020-04-30 US ABD RIGHT * * *Final Report* * * Normal 04-14 [facility] UPPER QUADRANT DATE OF EXAM: Apr 30 2020 4:13PM [place] ([id number]) [facility] 1032 - US ABD RIGHT UPPER [...] cyst, enlarged compared to p rior study. Concrete Finisher: [facility] Transcribe Date/Time: Apr 30 2020 4:19P Dictated by : KORI BLANKENSHIP MD This examination was interpreted and the report reviewed and electronically signed by: KORI BLANKENSHIP MD on Apr 30 2020 4:27PM EST [id number] progress on 2020-04 PROGRESS HNO ID: [id number] Normal 04-30-2020 [facility] Author: Vianey Ramos (Tech) [place] ([id number]) Service: ? Author Type: Polishing Machine Operator Type: Progress Notes Filed: 04/30/2020 4:14 PM [...] on 2020-04 OBSOLETE Refill (FAMPWS) Normal 04-30-2020 [facility] SALLY MCGREGOR ([id number]) 1980 [facility] Time Provider Department ([id number]) 04/30/20 MARCELINO MEJIA FAMPWS During your visit [...] 04/30/20 igg subclasses+total on 2020-04-30 IgG [Mass/Vol] [phone] mg/dL Normal 04-30-2020 [facility] (87158) Comment: Performed By: #### IGGSUB ## ##[address] [id number] [phone] IgG Subclass 1 757.6 382.4-928.6 mg/dL Normal 04-30-2020 [facility] (71650) Comment: Performed By: #### IGGSUB ## ##[address] [id number]- [phone] IgG Subclass 2 398.2 241.8-700.3 mg/dL Normal 04-30-2020 [facility] (33466) Comment: Performed By: #### IGGSUB ## ##[address] [id number]- [phone] IgG Subclass 3 42.7 21.8-176.1 mg/dL Normal 04-30-2020 [facility] ([id number]) Comment: Performed By: #### IGGSUB ## ##[address] [id number]- [phone] IgG Subclass 4 39.7 3.9-86.4 mg/dL Normal 04-30-2020 [facility] (56328) Comment: Performed By: #### IGGSUB ## ##[facility] [place] [address] [phone] cnpn on 2020-04-30 CNPN Telephone (GSTNOR) Normal 04-30-2020 [place] [facility] SALLY MCGREGOR ([id number]) 1980 [facility] Date Time Provider Department (58166) 04/30/20 JOHNNY WINN GSTNOHerman During your visit [...] on 04/30/20 No panel information on 2020-04-30 [facility] ([id number]) cnpn on 2020-04-27 [facility]) Normal 04-27-2020 [place] [facility] TOSHIASALLY TORRES ([id number]) 1980 [facility] Date Time Provider Department (48789) 04/27/20 MARCELINO MEJIA During your visit today, we recorded the following informati on about you: Christopher Carcamo RN 04/27/2020 9:04 AM Signed Patient asking if pcp would send Rx for phenergan to [facility]. Reports she's had nausea for weeks. [...] 04/27/20 progress on 2020-04 PROGRESS HNO ID: [id number] Normal 04-26-2020 [facility] Author: Johnny Winn [place] ([id number]) Service: ? Author Type: Physician Type: Progress [...] note she presented to the ED in [place] in January 2020 for a bdominal pain of [address] abdomen was essentially unremarkable i ncluding pancreas. Was found to have lipase of 193 on 02/15/2020. Amylase normal. Hepatic function panel. Has h/o cholecystectomy in 1998. Denies NSAIDs. Smoking - quit 3 months ago. 1 pack/day X 15 years. Etoh - denies. Drugs - denies. Record Review: [facility] records reviewed PAST MEDICAL HISTORY Diagnosis Date - Allergic rhinitis, cause unspecified 05/17/2008 Spring and summer - Benign liver cyst 05/24/2010 CT scan at [facility] 11/2009 and 04/2010 showe 4 mm increase in size . No pain. No elevated LFTs on 03/11/2010. - Calculus of kidney 05/17/[address] Nicolas: Hospitalized age 20, and again later -- no procedures so far ([facility], most, 1995 [facility]) - Dysmenorrhea - History of blood transfusion [...] removed - TOTAL ABDOM HYSTERECTOMY 08/31/06 Hysterectomy, [facility] Allergies: ALLERGIES Allergen Reactions - Penicillins Rash [...] Approx. 3 cigarettes daily-1 pack every w rosebud Substance Use Topics - Alcohol use: Yes [...] CNOV Office Visit (GSTNOR) Normal 04-26- 20 [place] [facility] SALLY MCGREGOR ([id number]) 1980 [place] Date Time Provider Department ([id number]) 04/26/20 3:00 PM JOHNNY WINN During your [...] Benign liver cyst 05/24/2010 CT scan at [facility] 11/2009 and 04/2010 showe 4 mm increase in size . No pain. No elevated LFTs on 03/11/2010. - Calculus of kidney 05/17/[address] Nicolas: Hospitalized age 20, a nd again later -- no procedures so far ([facility], most, 1995 [facility]) - Dysmenorrhea - History of blood transfusion [...] removed - TOTAL ABDOM HYSTERECTOMY 08/31/06 Hysterectomy, [facility] Allergies: ALLERGIES Allergen Reactions - Penicillins Rash [...] Approx. 3 cigarettes daily-1 pack every w rosebud Substance Use Topics - Alcohol use: Yes [...] If you do not have a responsible goat driver (family member or friend) with you [...] the prescription bowel preparation solution at your [facility] pharmacy or drugstore pharmacy. 08/2019 Bowel [...] or limit intake. Referring Provider: MARCELINO MEJIA [[id number]] Allergies As of Date: 04/26/2020 Noted Allergy [...] doctor.Disp: 1 BottleRfl : 0 INSERT IV ([place]) [3117223] Order #: [id number]: 1 FUTURE IV DISCONTINUE [9084219] Order #: [id number]: 1 FUTURE INSERT IV ([place]) [5535661] Order #: [id number]: 1 EGD [3580435] Order #: [id number] FUTURE COLONOSCOPY - DIAGNOSTIC [8080702] Order #: [id number] FUTUR E CELIAC DISEASE PANEL [3897142] Order #: [id number] FUTURE IGG SUBCLASSES BLD [SQIGGSUB] Order #: [id number] FUTURE US ABD RT UPPER QUADRANT [0662843] Order #: [id number] FUTUR E metroNIDAZOLE (FLAGYL) 500 mg tabletTake [...] AND PRE-OPERATIVE COVID [SQPOCOVD] Order #: [id number] FUTURE Prescriptions as of 04/26/2020 Sig: DIPHENHYDRAMINE [...] take a taxi or bus, or leave [facility] ALONE. If you do not have a responsible goat driver (famil y member or friend) with [...] the prescription bowel preparation solution at your [facility] pharmacy or drugstore pharmacy. 08/2019 Bowel [...] on 2020-04-26 CNCO Letter Text Normal 04-26-2020 [facility] ([id number]) cnpn on 2020-04-19 CNPN Telephone (FAMPWS) Normal 04-19-2020 [place] [facility] SALLY MCGREGOR ([id number]) 1980 [facility] Date Time Provider Department ([id number]) 04/19/20 [facility] During your visit today, we recorded the following informati on about you: Christopher Carcamo RN 04/19/2020 10:49 AM Signed Faxed GI referral and demographics to [facility], per patient request. . Allergies As [...] Fully Assessed Reason for Visit: Faxed to [facility] [Other] Prescriptions as of 04/19/2020 Sig: [...] on 2020-04-18 CNPN Telephone (FAMPWS) Normal 04-18-2020 [place] [facility] SALLY MCGREGOR ([id number]) 1980 [facility] Date Time Provider Department ([id number]) 04/18/20 [facility] During your visit today, we recorded the following informati on about you: Yvette Huffman RN 04/18/2020 2:01 PM Signed Pt called, verified by name and birthdate. Pt wants to know if she can see a GI doctor. Reviewed pt's chart and she has a GI con sult with GI group in [place]. Pt verbalized understanding, states she will call to make ap t Yvette Huffman RN Allergies As of Date: 04/18/2020 Noted Allergy Reaction PENICILLINS 12/07/2009 2 - Rash ASA (SALICYLATES) 01/27/2011 14 - Other: See Comments Comments: ulcers CONTRAST DYE (IODINE) 05/17/2008 12 - Shortness of Breath FLAGYL (METRONIDAZOLE HCL) 03/11/2010 12 - Shortness of [place] th IBUPROFEN 06/18/2016 8 - GI Upset PREDNISONE 06/18/2016 14 - Other: See Comments Comments: makes agitated and mean Date Reviewed: 02/23/2020 Reviewed by: Marcelino Mejia - Fully Assessed Reason for Visit: Patient Question [3607] Prescriptions as of 04/18/2020 Sig: TOPIRAMATE 50 [...] on 2020-04-16 CNPN Telephone (FAMSkylerWS) Normal 04-16-2020 [place] [facility] SALLY MCGREGOR ([id number]) 1980 [facility] Date Time Provider Department ([id number]) 04/16/20 [facility] During your visit today, we recorded the following informati on about you: Edwina Tatum SIDEROGRAPHIST 04/16/2020 11:38 AM Signed Pt calls to report she went to [facility] ER 04/12. Pt reports she went because [...] (METRONIDAZOLE HCL) 03/11/2010 12 - Shortness of [place] th IBUPROFEN 06/18/2016 8 - GI Upset [...] on 2020-03-29 CNPN Telephone (FAMPWS) Normal 03-29-2020 [place] [facility] SALLY MCGREGOR ([id number]) 1980 [facility] Date Time Provider Department ([id number]) 03/29/20 [facility] During your visit today, we recorded the following informati on about you: Melanie Debby HERNANDEZ 03/29/2020 10:06 AM Signed Patient calling crying constantly, so congested from a ll the crying, can not get appt with [facility] will not take her insurance. [facility] will not take any new patients [...] AM Signed 1. Can we confirm that [facility] neuro at [facility] doesn't take her insurance. If they don't take her insurance then we ca n see if can get her in with Dr. Church since he is back in [facility] now. 2. Find out how long she [...] she said to ask for prescription for [facility] relaxer or ibuprofen (she said, in below message she can't take ibuprof en). TC to [facility] and had to leave message for them to return call regarding if they accept patient's insurance. Instructed the m to give patient's name when they return the call so we can document. Lorenzo Vu 03/29/2020 12:49 PM Signed Giulia / [facility] returned call stating the y do not take [facility]; provider is not credentialed with them yet. [...] muscle relaxer for her migraines. Pharmacy is [facility]. Please review and advise. VIN Solis [...] (METRONIDAZOLE HCL) 03/11/2010 12 - Shortness of [place] th IBUPROFEN 06/18/2016 8 - GI Upset [...] 2020-03-28 CNPN Telephone (FAMWS) Normal 03-28-2020 [place] [facility] SALLY MCGREGOR ([id number]) 1980 [facility] Date Time Provider Department ([id number]) 03/28/20 MARCELINO MEJIA During your visit today, [...] OBSOLETE Refill (FAMPWS) Normal 03-27-2020 Isaías veland [facility] SALLY MCGREGOR ([id number]) 1980 [facility] Date Time Provider Department (10881) 03/27/20 MARCELINO MEJIA FAMPWS During your visit [...] Bruce Ma Last ov: 03/2020 Last refill: 01/2020 [...] on 2020-03-27 CNPN Telephone (FAMPWS) Normal 03-27-2020 [place] [facility] SALLY MCGREGOR ([id number]) 1980 [place] Date Time Provider Department (40957) 03/27/20 MARCELINO MEJIA During your visit today, we recorded the following informati on about you: Yvette Huffman RN 03/27/2020 10:59 AM Signed Pt called, verified by name and birthdate. Pt states s he went to [facility] ER last night for a migraine and had a CT scan. Pt wants PCP to review ER records. Pt wants referral to neurology. Order pended. When signed pleas e fax to [facility] at [facility] per pt request Yvette Murphy Ma 03/27/2020 12:20 PM Signed ER reports on PCP's desk to review. Jessica Zhou, RN, RN 03/27/2020 1:37 PM Signed Pt calls, asking what the diagnosis was on the ER note. Pt states she was told air bubble, tumor States Imitrex is not working. Has already taken 2 today. Wa iting on [facility] to call her back Pt asking [...] referral placed and can be faxed to [facility]. Let patient know th e CT did [...] referred to. See needs to contact her youth care professional to get the help see nee ds as instructed on 03/22/2020, otherwise our hands are tied. Jessica Murphy Ma 03/27/2020 2:29 PM Signed Pt notified and voiced understanding. Referral and Dem o faxed to [facility]. Jessica Murphy Ma Allergies As of [...] [G43.009] Order(s):CONSULT TO NEUROLOGY [9019] Order #: [id number]: 1 FUTURE Prescriptions as of 03/27/2020 Sig: [...] 03/27/20 progress on 2020-03 PROGRESS HNO ID: [id number] Normal 03-22-2020 [facility] Author: Isabel (Maya) Hugo [place]ata ([id number]) Service: ? Author Type: Physician Admissions Director Type: Progress Notes Filed: 03/22/2020 9:50 AM Note Text: DISTANCE HEALTH VISIT This Team Access Model visit is a phone encounter. It requir ed patient-provider interaction for the medical decision making as documented below. No video was used for evaluation of this patient. Patient consents to visit. Patient location: [place] Sally Mcgregor is a 39 year old female seen for headaches a nd pain. Patient states she has had to cancel with pain management 5 different times so now they won't reschedule her. She continues to have migraines/headaches. Only taking topam ax once a day. Couldn't do MRI or US due to rides. States she couldn't go to [place] for her cardiac testing but continues to [...] 11-20 minutes cnpn on 2020-03-22 CNPN Telephone ([facility]) Normal 03-22-2020 [place] [facility] OTSHIASALLY TORRES ([id number]) 1980 [facility] Date Time Provider Department (30457) 03/22/20 ISABEL ARIAS) RAMA During your visit today, we recorded the following informati on about you: ISABEL ARIAS PA-C 03/22/2020 9:43 AM Signed Please let patient know that this is info I have received from in regards to rides: The last I knew, most of them were back up and running. I do know that [facility] [employer] has been continuing with their ride assistance and are taking people to their appts. I would sa y they need to check now with insurance to see if able to set up ride. The patient could also see if they can request a youth care professional through their Medicaid Managed Care p maria esther. I have patients that have Medicaid plan and their care managers a re able to assist them setting up services. Having a youth care professional through insu eve is great because they [...] again. I advised her that she contact [facility] and request more help from her youth care professional. Allergies As of Date: 03/22/2020 Noted Allergy [...] Encounter Status:Closed by ISABEL WARE on [facility]/22/20 [facility] Normal 03-08-2020 [place] SLALY Martinez ([id number]) 1980 [facility] Date Time Provider Department (52081) 03/08/20 [facility]IA [facility] During your visit today, we recorded [...] transfer to scheduling and while waiting for dental scheduler which was awhile, pt dropped call. Attempted t o contact pt back but no answer and vm was full. Pt was aware of instructions to schedule with Leora ro. Jigar Bernardo LPN Allergies As of Date: 03/08/2020 Noted Allergy Reaction PENICILLINS 12/07/2009 2 - Rash ASA (SALICYLATES) 01/27/2011 14 - Other: See Comments Comments: ulcers CONTRAST DYE (IODINE) 05/17/2008 12 - Shortness of Breath FLAGYL (METRONIDAZOLE HCL) 03/11/2010 12 - Shortness of [place] th IBUPROFEN 06/18/2016 8 - GI Upset [...] on 2020-03-05 CNPN Telephone (FAMWS) Normal 03-05-2020 [place] [facility] BENJIShivaSALLY ([id number]) 1980 [place] Date Time Provider Department (27653) 03/05/20 [facility] During your visit today, we recorded the following informati on about you: Sallie Benitez SIDEROGRAPHIST 03/05/2020 1:58 PM Signed Patient is scheduling [...] on 03/06/20 CNPN Telephone (FAMPWS) Normal 03-05-2020 [place] [facility] SALLY MCGREGOR ([id number]) 1980 [place] Date Time Provider Department (09915) 03/05/20 MARCELINO MEJIA During your visit today, we recorded the following informati on about you: Melanie Debby SIDEROGRAPHIST 03/05/2020 2:16 PM Signed Patient calling would like dental scheduler to call her back to set up [...] stated 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 vic stated she is to see Dr. Joseph here in [facility] r for Pain Management. Verified that we have [facility] and MRI schedul ed here on 03/19. -Marry Xavi Pss Allergies As of Date: 03/05/2020 Noted Allergy Reaction PENICILLINS 12/07/2009 2 - Rash ASA (SALICYLATES) 01/27/2011 14 - Other: See Comments Comments: ulcers CONTRAST DYE (IODINE) 05/17/2008 12 - Shortness of Breath FLAGYL (METRONIDAZOLE HCL) 03/11/2010 12 - Shortness of [place] th IBUPROFEN 06/18/2016 8 - GI Upset [...] on 2020-02-28 CNPN Telephone (FAMPWS) Normal 02-28-2020 [place] SALLY Martinez ([id number]) 1980 [place] Date Time Provider Department ([id number]) 02/28/20 [facility] During your visit today, we recorded the following informati on about you: Janneth Zhou, RN, RN 02/28/2020 10:41 AM Signed Pt calls for ER F/U appt. States she was at [facility] ER on 02/24 after reportidly passing [...] XR CHEST 1 VIEW ORIGINAL Normal 02-25-2020 [facility] XR CHEST 1 VIEW Foun dation ([place]) ([id number]) CLINICAL STATEMENT: Chest pain COMPARISON: 04/06/2006 FINDINGS: [...] Troponin I.cardiac <0.020 0.000-0.040 ng/mL Normal 0 [place] [email or web address] [Mass/Vol] [place] ([place]) (13471) Comment: Result Comment: Troponin I r eference range: 0.00-0.040 ng/mL Negative an d non-diagnostic. >0.040 ng/mL Consistent with cardiac damage, increased clinical risk and possibility of myocardial in farction. Serial measurements, a rise & fall in test results, clinical histo ry, appropriate symptoms and/or ECG changes may help assess possibility of [place]. *Other non-acute coronary sy ndrome conditions such as CHF, myoc arditis, pulmonary emboli, sepsis and cardiac surgery could result in myoc ardial damage and increased troponi n levels. Performed By: #### CBC, ADIF F, ANEU, BMP, GFR #### [address] [address] mg on 2020-02-25 Magnesium [Mass/Vol] 2.0 1.8-2.4 mg/dL Normal 0 [facility] ([place]) (0000 0) Comment: Performed By: #### CBC, ADIF F, ANEU, BMP, GFR #### [address] [address] lip on 2020-02-25 Lipase Level 562 73-393 U/L High 02-25-2020 [facility] ([place]) (45431) Comment: Performed By: #### CBC, ADIF F, ANEU, BMP, GFR #### [address] [address] cmp on 2020-02-25 Albumin [Mass/Vol] 4.1 3.5-5.0 G/dL Normal 02-25-2020 [facility] ([place]) (40230) Comment: Performed By: #### CBC, ADIF F, ANEU, BMP, GFR #### [address] [address] Albumin/Globulin [Mass 1.2 1.1-2.5 ratio Normal [address] [place] [address]] [facility] ([place]) (61738) Comment: Performed By: #### CBC, ADIF F, ANEU, BMP, GFR #### [address] [address] ALP [Catalytic activity/Vol] 98 40-135 U/L Normal 0 02-25-2020 [facility] ([place]) (0000 0) Comment: Performed By: #### CBC, ADIF F, ANEU, BMP, GFR #### [address] [address] ALT [Catalytic activity/Vol] 30 10-35 U/L Normal 0 02-25-2020 [facility] ([place]) (0000 0) Comment: Performed By: #### CBC, ADIF F, ANEU, BMP, GFR #### [address] [address] AST [Catalytic activity/Vol] 15 10-40 U/L Normal 0 02-25-2020 [facility] ([place]) (0000 0) Comment: Performed By: #### CBC, ADIF F, ANEU, BMP, GFR #### [address] [address] Bili Total 0.4 0.2-1.0 mg/dL Normal 02-25-2020 [facility] ([place]) (79103) Comment: Result Comment: Use of this assay is not recommended for patients undergoing treatment with eltrombopag d ue to the potential for falsely elevated results. Performed By: #### CBC, ADIF F, ANEU, BMP, GFR #### [address] [address] Calcium [Mass/Vol] 8.9 8.4-10.2 mg/dL Normal 02-25-2020 [facility] ([place]) (0000 0) Comment: Performed By: #### CBC, ADIF F, ANEU, BMP, GFR #### [address] [address] Chloride [Moles/Vol] 104 98-107 mmol/L Normal 0 [facility] ([place]) (0000 0) Comment: Performed By: #### CBC, ADIF F, ANEU, BMP, GFR #### [address] [address] CO2 [Moles/Vol] 28 22-29 mmol/L Normal 02-25-2020 [facility] ([place]) (27752) Comment: Performed By: #### CBC, ADIF F, ANEU, BMP, GFR #### [address] [address] Creatinine [Mass/Vol] 1.01 0.55-1.02 mg/dL Normal 02-25-20 20 [facility] ([place]) (79534) Comment: Performed By: #### CBC, ADIF F, ANEU, BMP, GFR #### [address] [address] Electrolyte Balance 9.0 mEq/L Normal 02-25-2020 [facility] ([place]) (57840) Comment: Performed By: #### CBC, ADIF F, ANEU, BMP, GFR #### [address] [address] Globulin (S) [Mass/Vol] 3.4 G/dL Normal 2019 [facility] ([place]) (01422) Comment: Performed By: #### CBC, ADIF F, ANEU, BMP, GFR #### [address] [address] Glucose [Mass/Vol] 112 70-105 mg/dL High 02-25-2020 [facility] ([place]) (25157) Comment: Performed By: #### CBC, ADIF F, ANEU, BMP, GFR #### [address] [address] Potassium [Moles/Vol] 3.7 3.5-5.1 mmol/L Normal 02-25-20 [facility] ([place]) (0000 0) Comment: Performed By: #### CBC, ADIF F, ANEU, BMP, GFR #### [address] [address] Protein [Mass/Vol] 7.5 6.4-8.2 G/dL Normal 02-25-2020 [facility] ([place]) (78330) Comment: Performed By: #### CBC, ADIF F, ANEU, BMP, GFR #### [address] [address] Sodium [Moles/Vol] 141 136-145 mmol/L Normal 02-25-2020 [facility] ([place]) (0000 0) Comment: Performed By: #### CBC, ADIF F, ANEU, BMP, GFR #### [address] [address] Urea nitrogen [Mass/Vol] 21 7-18 mg/dL High 02-24 [facility] ([place]) (76489) Comment: Performed By: #### CBC, ADIF F, ANEU, BMP, GFR #### [address] [address] Urea nitrogen/Creatinine [Mass 21 7-27 ratio Normal 02-25-2020 [facility]] [facility] ([place]) (74353) Comment: Performed By: #### CBC, ADIF F, ANEU, BMP, GFR #### [address] [address] cbc on 2020-02-25 Erythrocyte distribution 14.9 11.5-14.5 % High 02-24 [facility] width (RBC) [Ratio] ([place]) (02814) Comment: Performed By: #### CBC, ADIF F, ANEU, BMP, GFR #### [place] [address] Hematocrit (Bld) [Volume 35.9 37.0-47.0 % Low 02-24 [facility] fraction] ([place]) (0000 0) Comment: Performed By: #### CBC, ADIF F, ANEU, BMP, GFR #### [place] [address] Hemoglobin (Bld) 11.8 12.0-16.0 G/dL Low 02-25-2020 [facility] [Mass/Vol] ([place]) (000 00) Comment: Performed By: #### CBC, ADIF F, ANEU, BMP, GFR #### [place] [id number] MCH (RBC) [Entitic mass] 29.5 27.0-31.2 pg Normal 02-24 [facility] ([place]) (0000 0) Comment: Performed By: #### CBC, ADIF F, ANEU, BMP, GFR #### [place] [id number] MCHC (RBC) [Mass/Vol] 32.9 33.0-37.0 G/dL Low 02-25-20 20 [facility] ([place]) (0000 0) Comment: Performed By: #### CBC, ADIF F, ANEU, BMP, GFR #### [place] [id number] MCV (RBC) [Entitic vol] 89.9 80.0-94.0 fL Normal 2019 [facility] ([place]) (0000 0) Comment: Performed By: #### CBC, ADIF F, ANEU, BMP, GFR #### [place] [address] Platelet mean volume 9.2 7.4-10.4 fL Normal 0 [facility] (d) [Entitic vol] ([place]) (16508) Comment: Performed By: #### CBC, ADIF F, ANEU, BMP, GFR #### [place] [address] Platelets (Bld) [#/Vol] 265 130-400 10 3/mcL Normal 2019 [facility] ([place]) (64477) Comment: Performed By: #### CBC, ADIF F, ANEU, BMP, GFR #### [place] [address] RBC (Bld) [#/Vol] 4.00 4.20-5.40 10 6/mcL Low 02-25-2020 A [facility] ([place]) (0000 0) Comment: Performed By: #### CBC, ADIF F, ANEU, BMP, GFR #### [place] [address] WBC (Bld) [#/Vol] 9.90 4.60-10.80 10 3/mcL Normal 02-25-2020 [facility] ([place]) (44753) Comment: Performed By: #### CBC, ADIF F, ANEU, BMP, GFR #### [place] [address] .neuabs on Neutrophils (Bld) 6.00 2.85-6.16 10 3/mcL Normal 02-25-2020 A [facility] [#/Vol] [facility] ([place]) (32346) Comment: Performed By: #### CBC, ADIF F, ANEU, BMP, GFR #### [address] [address] .gfr on 2020-02-25 GFR Non- 61 ml/min/1.73sqm Normal 02-25-2020 [facility] ([place]) (15884) Comment: Result Comment: GFR Population mean for Afri can Latvian, Non- Americans Ages 20-29 = 116 mL/min/1.73 [...] CBC, ADIF F, ANEU, BMP, GFR #### [address] [address] GFR 74 ml/min/1.73sqm Normal 02-12 [facility] ([place]) (0000 0) Comment: Result Comment: GFR Population mean for Afri can Latvian, Non- Americans Ages 20-29 = 116 mL/min/1.73 [...] CBC, ADIF F, ANEU, BMP, GFR #### [address] [address] .auto diff on 02-24 Ammonia (P) [Mass/Vol] 0.60 0.15-1.00 10 3/mcL Normal 020 [facility] ([place]) (32985) Comment: Performed By: #### CBC, ADIF F, ANEU, BMP, GFR #### [address] [address] Basophils (Bld) 0.00 0.00-0.19 10 3/mcL Normal 02-25-2020 [facility] [#/Vol] [facility] ([place]) (20751) Comment: Performed By: #### CBC, ADIF F, ANEU, BMP, GFR #### [address] [address] Basophils/100 WBC (Bld) 0.2 0.0-2.5 % Normal 2019 [facility] ([place]) (0000 0) Comment: Performed By: #### CBC, ADIF F, ANEU, BMP, GFR #### [address] [address] Eosinophils (Bld) 0.30 0.00-0.40 10 3/mcL Normal 02-25-2020 [facility] [#/Vol] [facility] ([place]) (11341) Comment: Performed By: #### CBC, ADIF F, ANEU, BMP, GFR #### [address] [address] Eosinophils/100 WBC (Bld) 3.5 0.0-7.0 % Normal 02-12 [facility] ([place]) (0000 0) Comment: Performed By: #### CBC, ADIF F, ANEU, BMP, GFR #### [address] [address] Lymphocytes (Bld) 2.90 0.77-3.85 10 3/mcL Normal 02-25-2020 [facility] [#/Vol] [facility] ([place]) (30337) Comment: Performed By: #### CBC, ADIF F, ANEU, BMP, GFR #### [address] [address] Lymphocytes/100 WBC (Bld) 28.9 10.0-50.0 % Normal 02-12 [facility] ([place]) (78049) Comment: Performed By: #### CBC, ADIF F, ANEU, BMP, GFR #### [address] [address] Monocytes/100 WBC (Bld) 6.3 1.7-13.0 % Normal 2019 [facility] ([place]) (0000 0) Comment: Performed By: #### CBC, ADIF F, ANEU, BMP, GFR #### [facility] [address] [place] [address] Neutrophils/100 WBC (Bld) 61.1 37.0-80.0 % Normal 02-12 [facility] ([place]) (18495) Comment: Performed By: #### CBC, ADIF F, ANEU, BMP, GFR #### [facility] [address] [place] [address] progress on 2020-02 PROGRESS HNO ID: [id number] Normal 02-23-2020 [facility] Author: Marcelino Mejia [place] ([id number]) Service: ? Author Type: Physician Type: Progress Notes Filed: 02/23/2020 12:21 PM Note Text: This Team Access Model visit is a phone encounter. It requir ed patient-provider interaction for the medical decision making as documented below. The patient is identified by name and birthday. Patient loca tion: [place] The patient is aware that I am [...] on 2020-02-20 CNPN Telephone (FAMPWS) Normal 02-20-2020 [place] [facility] SALLY MCGREGOR ([id number]) 1980 [facility] Date Time Provider Department ([id number]) 02/20/20 MARCELINO MEJIA During your visit today, we recorded the following informati on about you: Lexy Tapia RN 02/20/2020 8:40 AM Signed fyi- Patient calls to report to PCP that she was back in [facility] ER over weekend due to pain from Pancreatitis. Her level was 800, so they s ent me home. States she received Oxycodone and report s that it is not doing much to relieve her pain and wanted PCP aware that she was in ER again. Patient did not have phone number of [facility] to schedule f ollow up. This [...] (METRONIDAZOLE HCL) 03/11/2010 12 - Shortness of [place] th IBUPROFEN 06/18/2016 8 - GI Upset [...] Encounter Status:Closed by MARCELINO MEJIA on 02/20/20 [facility]) Normal 02-20-2020 [place] [facility] SALLY MCGREGOR ([id number]) 1980 [facility] Date Time Provider Department ([id number]) 02/20/20 MARCELINO MEJIA [facility] During your visit today, we recorded the following informati on about you: Christopher Carcamo RN 02/20/2020 9:48 AM Signed Patient phoned crying and distraught, stating [facility], can not get her in until March. States she cannot take this pain anymore, her insurance will not cover anyone in [facility] When she was in the hospital [...] pain right now, she is upset because [facility] cannot see her until March. Asking if there is anything pcp can do to get her in sooner? Ple ase phone patient with reply. Marcelino Mejia MD 02/20/2020 10:15 AM Signed Let patient know the only op tions ar for her to go to [facility] ER to see if will be admitted and get Gastro eval there where they have it or I can put in a general referral for the system but that could be anywhere in the system including main campus. Edwina Rc HERNANDEZ 02/20/2020 10:43 AM Signed Pt calls back and is very upset because she said she has no one to take her to [place]. She said when she goes to [facility] the y just drug her up and [...] Crying. She cannot get transport ation to [facility]. Insurance does not cover [facility] and do es not want to go back to [facility] because they will just send h er home with meds and dope me up for 3-4 days. Johnathon SOTELO cannot get her an appointment until March . Will route to clerical gastro for schedu ling within [facility] - possibly [facility]. Marcelino Mejia MD 02/20/2020 12:34 PM Signed noted Augustina Vera RN REC [email or web address].JAKI 02/20/2020 12:40 PM Signed I'd suggest that she go to [place] ED today. it w ould not be [...] she has no way of getting to [facility]. Pt states she does not th ink they take her insurance either. Spoke with PCP who suggested [facility]. Relayed message to pt, pt started yelling stating she has no transp ortation. States if she calls ambulance they will only take her within [facility]. Sta los her boyfriend can't take her [...] illness. Asking letter to be faxed to [phone]. Marcelino Mejia MD 02/20/2020 2:38 PM Signed Let patient know ER report from 02/18/2020 was reviewed and th e ER Physician wanted to keep but she preferred to go home and see if she c ould manage it there. Lorenzo Vu 02/20/2020 4:06 PM Signed Patient returned call, stating she went to [facility] ER today an d they discharged her because her level is less than 800. Reques ting something for pain, that Percocet helped some in past. No transportation to go anywhe re but [place] (?mental health social worker to help with transportat ion). [...] doctor. In regards to her letter for [place] [employer] karsten what I [...] Signed Letter ready to be faxed to [phone]. Branden Sanders Ma 02/21/2020 8:24 AM Signed [...] Status:Closed by BRANDEN SANDERS MA on 02/21/20 [facility] (F[facility] Normal 02-20-2020 [place] SALLY Martinez ([id number]) 1980 [facility] Date Time Provider Department ([id number]) 02/20/20 [facility] During your visit today, we recorded the following informati on about you: Melanie Debby HERNANDEZ 02/20/2020 2:25 PM Signed Patient calling wants note sent to PCP, she is currently i n [facility] ER. Patient said she has been sitting [...] Encounter Status:Closed by MARCELINO MEJIA on [facility]/20/[facility]16 [facility] Telephone (UCWSTR) Normal 02-16-2020 [place] SALLY Martinez ([id number]) 1980 [place] Date Time Provider Department ([id number]) 02/16/20 JESSICA JESUS) [facility] During your visit today, we recorded the [...] [R91.8] 01/22/2020 More... Encounter Status:Closed by JESSICA JEUSS PA-C on 02/16/20 CNPN Telephone (FAMPWS) Normal 02-16-2020 [place] SALLY Martinez ([id number]) 1980 [place] Date Time Provider Department ([id number]) 02/16/20 ISABEL ARIAS) [facility] During your visit [...] (METRONIDAZOLE HCL) 03/11/2010 12 - Shortness of [place] th IBUPROFEN 06/18/2016 8 - GI Upset [...] 02/16/20 progress on 2020-02 PROGRESS HNO ID: [id number] Normal 02-15-2020 [facility] Author: Marcelino Mejia [place] ([id number]) Service: ? Author Type: Physician Type: Progress [...] at today?s visit. Patient was sen in [facility] ER on 02/01/2020 with C/O epigastric p [...] being home. Patient was seen in [facility] yesterday for mouth sor es and [...] nosis) - CONSULT TO GASTROENTEROLOGY: [facility] in [place] - Cont prn phenergan. 2. Tongue ulcer [...] 02-15-2020 [facility] activity/Vol] [place] and (14325) Comment: Performed By: #### HBA1C, TS H, LIPNF #### [facility] [address] [place], [place] [address] comp metabolic panel on 2020-02-15 Albumin [Mass/Vol] 4.6 3.9-4.9 g/dL Normal 02-15-2020 [facility] (83393) Comment: Performed By: #### HBA1C, TS H, LIPNF #### [place] [address] [place], [place] [address] ALP [Catalytic activity/Vol] 90 34-123 U/L Normal 0 02-15-2020 [facility] (54542) Comment: Performed By: #### HBA1C, TS H, LIPNF #### [facility] [address] [place], [place] [address] ALT [Catalytic activity/Vol] 6 7-38 U/L Low 0 02-15-2020 [facility] (10193) Comment: Performed By: #### HBA1C, TS H, LIPNF #### [facility] [address] [place], [place] [address] Anion gap [Moles/Vol] 13 9-18 mmol/L Normal 02-15-20 [facility] (98489) Comment: Performed By: #### HBA1C, TS H, LIPNF #### [facility] [address] [place], [place] [address] AST [Catalytic activity/Vol] 20 13-35 U/L Normal 0 02-15-2020 [facility] (06344) Comment: Performed By: #### HBA1C, TS H, LIPNF #### [facility] [address] [place], [place] [address] Bilirubin [Mass/Vol] 0.2 0.2-1.3 mg/dL Normal 0 [facility] (44508) Comment: Performed By: #### HBA1C, TS H, LIPNF #### [facility] [address] [place] [id number] Calcium [Mass/Vol] 10.2 8.5-10.2 mg/dL Normal 02-15-2020 [facility] (47439) Comment: Performed By: #### HBA1C, TS H, LIPNF #### [place] [address] Chloride [Moles/Vol] 100 97-105 mmol/L Normal 0 [facility] (75029) Comment: Performed By: #### HBA1C, TS H, LIPNF #### [facility] s [facility] [place] 5235795 CO2 [Moles/Vol] 26 22-30 mmol/L Normal 02-15-2020 [facility] (32960) Comment: Performed By: #### HBA1C, TS H, LIPNF #### [facility] s [facility] [place] [address]5795 Creatinine [Mass/Vol] 0.92 0.58-0.96 mg/dL Normal 02-15-20 20 [facility] (58769) Comment: Performed By: #### HBA1C, TS H, LIPNF #### [facility] [place] [address]5795 eGFR- Amer. >60 Normal 02-15-2020 [facility] (78366) Comment: Performed By: #### HBA1C, TS H, LIPNF #### [facility] [address] [place], [place] [address] GFR/1.73 sq M predicted >60 mL/min/{1.73_m2} Normal 02-15-2020 [facility] among non-blacks MDRD [place] (19274) (S/P/Bld) [Vol rate/Area] Comment: Result Comment: eGFR [...] By: #### HBA1C TS H, LIPNF #### [facility] [address] [place], [place] [address] Glucose [Mass/Vol] 89 74-99 mg/dL Normal 02-15-2020 [facility] (63571) Comment: Result Comment: The [place] Diabetes Association (ADA) provides guidance for cutoff [...] for diagnosis of diabetes. Reference: Standards of [facility] Care in Diabetes 2016, [place] Diabetes Association. Diabetes Care. 2016.39(Suppl 1). Performed By: #### HBA1C, TS H, LIPNF #### [facility] [address] [place], [place] [address] Potassium [Moles/Vol] 3.7 3.7-5.1 mmol/L Normal 02-15-20 20 [facility] (64341) Comment: Performed By: #### HBA1C, TS H, LIPNF #### [facility] [address] [place], [place] [address] Protein [Mass/Vol] 7.8 6.3-8.0 g/dL Normal 02-15-2020 [facility] (78066) Comment: Performed By: #### HBA1C, TS H, LIPNF #### [facility] [address] [place] [place], [place] 15[address] Sodium [Moles/Vol] 139 136-144 mmol/L Normal 02-15-2020 [facility] (07545) Comment: Performed By: #### HBA1C, TS H, LIPNF #### [facility] [address] [place] [place], [place] [address] Urea nitrogen [Mass/Vol] 9 7-21 mg/dL Normal 02-14 [facility] (14932) Comment: Performed By: #### HBA1C, TS H, LIPNF #### [facility] [address] [place], [place] [address] cnov on 2020-02-15 CNOV Office Visit (FAMPWS) Normal 02-15-[address] [place] [address] [facility] SALLY MCGREGOR ([id number]) 1980 [facility] Date Time Provider Department ([id number]) 02/15/20 2:20 PM MARCELINO MEJIA FAMPWS During [...] at today?s visit. Patient was sen in [facility] ER on 02/01/2020 with C/O epigastric pain [...] being home. Patient was seen [facility] yesterday f or mouth sores and [...] diagnosis) - CONSULT TO GASTROENTEROLOGY: [facility] in [place] - Cont prn phenergan. 2. Tongue ulcer [...] (METRONIDAZOLE HCL) 03/11/2010 12 - Shortness of [place] th IBUPROFEN 06/18/2016 8 - GI Upset PREDNISONE 06/18/2016 14 - Other: See Comments Comments: makes agitated and mean Date Reviewed: 02/15/2020 Reviewed by: Marcelino Mejia - Fully Assessed Reason for Visit: Transition Of Care [4074] Cmt: [facility] pancreatitis Reason For Visit History Recorded Primary Visit Diagnosis:Acute pancreatitis without infection or necrosis, unspecified pancreatitis type [K85.90] Other Visit Diagnoses:Tongue ulcer [K14.0] Poor dentition [K08.9] Thrush [B37.0] Order(s):CONSULT TO GASTROENTEROLOGY [9058] Order #: [id number]: 1 FUTURE triamcinolone (KENALOG IN ORABASE) 0.1 [...] Abs Baso 0.07 <0.11 k/uL Normal 02-15-2020 [facility] (62267) Comment: Performed By: #### HBA1C, TS H, LIPNF #### [facility] [address] [place], [place] [address] Abs Bay 0.53 <0.87 k/uL Normal 02-15-2020 [facility] (19174) Comment: Performed By: #### HBA1C, TS H, LIPNF #### [facility] [address] [place], [place] [address] Abs Neut 6.05 1.45-7.50 k/uL Normal 02-15-2020 [facility] (72870) Comment: Performed By: #### HBA1C, TS H, LIPNF #### [facility] [address] [place], [place] [address] Absolute nRBC <0.01 <0.01 Normal 02-15-2020 [facility] (09835) Comment: Performed By: #### HBA1C, TS H, LIPNF #### [facility] [place] [address] Basophils/100 WBC (Bld) 0.7 % Normal 2019 [facility] (59018) Comment: Performed By: #### HBA1C, TS H, LIPNF #### [facility] s [address] [place] [address] DTYPE Auto Diff Normal 02-15-2020 [facility] (35967) Comment: Performed By: #### HBA1C, TS H, LIPNF #### [place] [address] Eosinophils (Bld) [#/Vol] 0.38 <0.46 k/uL Normal [facility] (53469) Comment: Performed By: #### HBA1C, TS H, LIPNF #### [facility] [place] [address] Eosinophils/100 WBC (Bld) 3.9 % Normal [facility] (61844) Comment: Performed By: #### HBA1C, TS H, LIPNF #### [facility] [place] [address] Erythrocyte distribution 14.7 11.5-15.0 % Normal 02-14 [facility] width (RBC) [Ratio] [place] (10612) Comment: Performed By: #### HBA1C, TS H, LIPNF #### [facility] [address] [place], [place] [address] Hematocrit (Bld) [Volume 40.4 36.0-46.0 % Normal 02-14 [facility] (91955) Comment: Performed By: #### HBA1C, TS H, LIPNF #### [address] [address] Hemoglobin (Bld) 12.0 11.5-15.5 g/dL Normal 02-15-2020 [facility] [Mass/Vol] [place] ([address]1976) Comment: Performed By: #### HBA1C, TS H, LIPNF #### [place] [address] Lymphocytes (Bld) [#/Vol] 2.77 1.00-4.00 k/uL Normal [facility] (15326) Comment: Performed By: #### HBA1C, TS H, LIPNF #### [address] [address] Lymphocytes/100 WBC (Bld) 28.3 % Normal [facility] (41211) Comment: Performed By: #### HBA1C, TS H, LIPNF #### [address] [address] MCH (RBC) [Entitic mass] 28.6 26.0-34.0 pG Normal 02-14 [facility] (66310) Comment: Performed By: #### HBA1C, TS H, LIPNF #### [address] [address] MCHC (RBC) [Mass/Vol] 29.7 30.5-36.0 g/dL Low 02-15-20 [facility] (68357) Comment: Performed By: #### HBA1C, TS H, LIPNF #### [address], [place] [address] MCV (RBC) [Entitic vol] 96.4 80.0-100.0 fL Normal 02-14 [facility] (98802) Comment: Performed By: #### HBA1C, TS H, LIPNF #### [facility] [address] [place], [place] [address] Monocytes/100 WBC (Bld) 5.4 % Normal 2019 [facility] (26907) Comment: Performed By: #### HBA1C, TS H, LIPNF #### [facility] [address] [place], [place] [address] Neutrophils/100 WBC (Bld) 61.7 % Normal [facility] (58449) Comment: Performed By: #### HBA1C, TS H, LIPNF #### [facility] [address] [place], [place] [address] NRBCs 0.0 0 /100 WBC Normal 02-15-2020 [facility] (49928) Comment: Performed By: #### HBA1C, TS H, LIPNF #### [facility] [address] [place], [place] [address] Platelet mean volume 10.6 9.0-12.7 fL Normal 0 [facility] (Bld) [Entitic vol] [place] ([address]78) Comment: Performed By: #### HBA1C, TS H, LIPNF #### [facility] [address] [place], [place] [address] Platelets (Bld) [#/Vol] 435 150-400 k/uL High 2019 [facility] (51142) Comment: Performed By: #### HBA1C, TS H, LIPNF #### [facility] [address] [place], [place] [address] RBC (Bld) [#/Vol] 4.19 3.90-5.20 m/uL Normal 02-15-2020 [facility] (39149) Comment: Performed By: #### HBA1C, TS H, LIPNF #### [facility] [address] [place], [place] [address] WBC (Bld) [#/Vol] 9.80 3.70-11.00 k/uL Normal 02-15-2020 [facility] (83085) Comment: Performed By: #### HBA1C, TS H, LIPNF #### [facility] [address] [place], [place] [address] amylase on Amylase [Catalytic 52 30-104 U/L Normal 02-15-2020 [facility] activity/Vol] [place] and ([address]) Comment: Performed By: #### HBA1C, TS H, LIPNF #### [facility] [address] [place], [place] [address] progress on 2020-02 PROGRESS HNO ID: [id number] Normal 02-14-2020 [facility] Author: Jessica Coppola) [facility] [place] ([id number]) Service: ? Author Type: Physician Admissions Director Type: Progress Notes Filed: 02/14/2020 1:14 PM Note Text: This note was created using Repligenriter. Subjective Sally Mcgregor is a 39 year [...] Benign liver cyst 05/24/2010 CT scan at [facility] 11/2009 and 04/2010 showe 4 mm increase in size . No pain. No elevated LFTs on 03/11/2010. - Calculus of kidney 05/17/[address] Nicolas: Hospitalized age 20, and again later -- no procedures so far ([facility], most, 1995 [facility]) - Dysmenorrhea - Impaired fasting glucose 05/17/2008 [...] MG DAILY September 02, 2019 5:34am 09-02-2019 [facility] ([address]) - ondansetron orally disintegrating (ZOFRAN ODT) 4 [...] Approx. 3 cigarettes daily-1 pack every w rosebud Substance Use Topics - Alcohol use: Yes [...] Sp. Request/Comment: - Swab Critical ly 02-14-2020 [facility] abnormal [place] Culture Result - Few Neris glabrata --> ABNORMAL ALERT (30114) Comment: Performed By: #### HBA1C, TS H, LIPNF #### [facility] [address] [place] [address] cnov on 2020-02-14 CNOV Office Visit (UCWSTR) Normal 02-14-20 [place] [facility] SALLY MCGREGOR ([id number]) 1980 [facility] Date Time Provider Department ([id number]) 02/14/20 12:45 PM JESSICA JESSU (CHAZ) UCWSTR During your visit today, we [...] Benign liver cyst 05/24/2010 CT scan at [facility] 11/2009 and 04/2010 showe 4 mm increase in size . No pain. No elevated LFTs on 03/11/2010. - Calculus of kidney 05/17/[address] Nicolas: Hospitalized age 20, a nd again later -- no procedures so far ([facility] [place] [facility], 1995 [facility]) - Dysmenorrhea - Impaired fasting glucose 05/17/2008 [...] DAILY September 02, 2019 5:34am 12-20-2 019 [facility] ([id number]) - ondansetron orally disintegrating (ZOFRAN ODT) 4 [...] removed - TOTAL ABDOM HYSTERECTOMY 08/31/06 Hysterectomy, [facility] FAMILY HISTORY Problem Relation Age of Onset [...] Approx. 3 cigarettes daily-1 pack every w rosebud Substance Use Topics - Alcohol use: Yes [...] (METRONIDAZOLE HCL) 03/11/2010 12 - Shortness of [place] th IBUPROFEN 06/18/2016 8 - GI Upset [...] mLRfl: 0 FUNGAL SCREEN [SQFUNGSC] Order #: [id number] Prescriptions as of 02/14/2020 Sig: PROMETHAZINE 25 [...] JESUS PA-C on 02/14/20 cnpn on 2020-02-13 [facility]) Normal 02-13-2020 [place] SALLY Martinez ([id number]) 1980 Donato Mata Date Time Provider Department ([id number]) 02/13/20 MARCELINO MEJIAPWS During your visit today, we recorded the following informati on about you: Christopher Carcamo RN 02/13/2020 10:27 AM Signed Patient reports she was discharged from [facility] yesterday, after a 4 day stay, for pancreatitis. Scheduled f/u visit with PA, for tomorro w. Patient asking note be sent to provider also. Reports she still has a sore on he r tongue, [facility] doctor was not concerned about it. She [...] (METRONIDAZOLE HCL) 03/11/2010 12 - Shortness of [place] th IBUPROFEN 06/18/2016 8 - GI Upset PENICILLINS 12/07/2009 2 - Rash PREDNISONE 06/18/2016 14 - Other: See Comments Comments: makes agitated and mean Date Reviewed: 01/02/2020 Reviewed by: Ashley Lehman Ma - Fully Assessed Reason for Visit: [facility] visit [Other] Prescriptions as of 02/13/2020 Sig: [...] Encounter Status:Closed by ROXANNE PATEL on [facility] Normal 02-09-2020 [place] [facility] SALLY MCGREGOR ([id number]) 1980 [facility] Date Time Provider Department ([id number]) 02/09/20 [facility] During your visit today, we recorded [...] calls back, stating she is currently at [facility] ER. States she had labs done and [...] 02/09/20 progress on 2020-01 PROGRESS HNO ID: [id number] Normal 02-08-2020 [facility] Author: Isabel Romero) [place] ([id number]) Service: ? Author Type: Physician Admissions Director Type: Progress Notes Filed: 02/08/2020 10:57 AM [...] per patient report who presented to the [facility] ED on 02/01/20 with i ntermittent epigastric [...] seroquel and she has talked with ps [facility] office for what to do next. She has been taking oxycodone every 4 hours but has not need any yet today. Does mention a sore on her forearm. States getting worse. Red and hardened. 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 States she noticed it first in hospital. She is unable to send picture or have video conference. Is w illing to come to . HISTORY REVIEWED (electronic chart updated): - medical history - medications - allergies REVIEW OF SYSTEMS: As noted in HPI PHYSICAL EXAMINATION: [facility] 08/10/2006 No vitals taken. Deferred physical exam [...] minutes progress on 2020-01 PROGRESS HNO ID: [id number] Normal 02-07-2020 [facility] Author: Yvette Huffman RN [place] ([id number]) Service: ? Author Type: ? Type: Progress [...] might be hidden SUMMARY: -Pt discharged from [facility] on 02-05-2020. -Follow up appointment on 02-08-2020. [...] per patient report who presented to the [facility] ED on 02/01/20 with i ntermittent epigastric [...] CNPTOUTREACH Patient Outreach (FAMPWS) Normal 0 02-07-2020 [place] Debra SALLY MCGREGOR ([id number]) 1980 [facility] Time Provider Department ([id number]) 02/07/20 MARCELINO MEJIA During your visit today, [...] might be hidden SUMMARY: -Pt discharged from [facility] on 02-05-2020. -Follow up appointment on 02-08-2020. 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 Syndrome, Migraines, Known Lung Nodules, Hx Uteri ne CA, Hx Nephrolithiasis, Tobacco use, Anxiety and Depression with Suspected Bipolar disorder recently starte d on seroquel and sertraline, Recent Dental ev aluation with Infection on clindamycin with planned upcoming removal in 4-6 week s per patient report who presented to the [facility] ED on 02/01/20 with intermittent epigastric pain [...] (METRONIDAZOLE HCL) 03/11/2010 12 - Shortness of [place] th IBUPROFEN 06/18/2016 8 - GI Upset [...] 02/07/20 emergency report on 2020-01-28 EMERGENCY REPORT [facility] Normal 01-27 [facility] EMERGENCY ROOM REPORT ([id number]) NAME ACCOUNT SEX AGE ADMIT DISCHARGE PT MED. RECORD# NUMBER DATE DATE TYPE SAM, [id number] F 39 01/20/20 01/21/20 [place] ZHENG [id number] ROOM: ER DATE OF : 1980 DICTATING [...] PHYSICAL EXAMINATION: Physic al examination reveals a vci-hkm-zwupnaryj female in no acute distress, resting c [...] plan for transfer to an outside [facility] for further management. Discussed the patient with Dr. Coleman at [facility], who accepted the patient for admission. The patient was transferred to [facility] in stable condition. Dictated By: Ana Alcantar MD 01/21/20 01:30 JOB #: [id number] Transcribed By: thanh 01/21/20 10:04 Electronically signed by: Jennifer Perez MD 01/28/20 00:29 Page 2 of 2 SALLY MCGREGOR Emergency Room Report myco on 2020-01-26 Mycoplasma IgG POS Normal 01-26-2020 [facility] ([place]) ([address]71) Comment: Result Comment: INTERPRETATI ON OF MYCOPLASMA [...] CBC, ADIF F, ANEU, BMP, GFR #### [place] [address] progress on 2020-01 PROGRESS HNO ID: [id number] Normal 01-25-2020 [facility] Author: Roxanne Patel [place] ([id number]) Service: ? Author Type: Architectural Technician Type: Progress Notes Filed: 01/25/2020 7:39 AM Note Text: Te made to get setup. Roxanne Patel MA cnpn on 2020-01-25 CNPN Telephone (FAMPWS) Normal 01-25-2020 [place] [facility] SALLY MCGREGOR ([id number]) 1980 [facility] Date Time Provider Department ([id number]) 01/25/20 ISABEL ARAIS) [facility] During your visit today, we recorded the following informati on about you: Roxanne Patel MA, MA 01/25/2020 7:39 AM Signed Please help patient get setup for MRI. BROCK Fritz Pss 01/25/2020 11:05 AM Signed Attempted to reach patient and she does not have a voice m ail set up Trying to schedule an MRI of the Brain Milly Green [facility] 01/25/2020 3:35 PM Signed Spoke with patient [...] (METRONIDAZOLE HCL) 03/11/2010 12 - Shortness of [place] th IBUPROFEN 06/18/2016 8 - GI Upset [...] 01/26/20 progress on 2020-01 PROGRESS HNO ID: [id number] Normal 01-24-2020 [facility] Author: Isabel (Pa-Kimmie) [place] ([id number]) Service: ? Author Type: Physician Admissions Director Type: Progress Notes Filed: 01/24/2020 4:03 PM Note Text: DISTANCE HEALTH VISIT This Team Access Model visit is a phone encounter. It requir ed patient-provider interaction for the medical decision making as documented below. No video was used for evaluation of this patient. Patient consents to visit. Patient's location: [place] Chief Complaint No chief complaint on file. [...] patient was to see pain specialist in [facility]. She has missed or cancelled appointments due [...] over the weekend. She was transferred to [facility] [place]. Reports n ot available but patient states ECHO and labs were normal. . States she received a phone call from an [place] And was told negative for Covid. But [...] pharmacy. She did receive phone call from ict account manager last week and w ill be set up for heart monitor. She was suppose to have stress testing done at [facility] today and Carotid US done yesterday, but [...] Benign liver cyst 05/24/2010 CT scan at [facility] 11/2009 and 04/2010 showe 4 mm increase in size . No pain. No elevated LFTs on 03/11/2010. - Calculus of kidney 05/17/[address] Nicolas: Hospitalized age 20, and again later -- no procedures so far ([facility] [place] [facility], [facility]) - Dysmenorrhea - Impaired fasting glucose 05/17/2008 [...] removed - TOTAL ABDOM HYSTERECTOMY 08/31/06 Hysterectomy, [facility] Family History FAMILY HISTORY Problem Relation Age [...] MG DAILY September 02, 2019 5:34am 09-02-2019 [facility] ([id number]) - ondansetron orally disintegrating (ZOFRAN ODT) 4 [...] mg capsule Take 1 capsule by mo njh daily at bedtime for 90 days. - [...] Approx. 3 cigarettes daily-1 pack every w rosebud Substance Use Topics - Alcohol use: Yes [...] - ICD9: 786.59, ICD10: R07.89 Continue with ict account manager. Will attempt to get records to see [...] minutes covid on 2020-01-24 COVID 19 Result CERTIFIED NURSE OPERATING ROOM See Below [facility] Normal 01-24-2020 [facility] ([place]) (0000 0) Comment: Result Comment: Negative Negative for COVID19 (SARS C oV2) by PCR. This test was developed and its performance characteristics determined by [facility] [place]. This test has bee n authorized by [...] issued on November 12, 2019. Performed By: [facility] [employer] [place] [address] Hand Suture Winder: Raphael liriano III, M.D. CLIA#: [id number] Phone#: Performed By: #### CBC, ADIF F, ANEU, BMP, GFR #### [place] [address] COVID 19 Source CERTIFIED NURSE OPERATING ROOM See Below Normal 01-24-2020 [facility] ([place]) (01261) Comment: Result Comment: Nasopharynge al Swab Performed By: [facility] [employer] [place] [address] Hand Suture Winder: Raphael liriano III, M.D. CLIA#: [id number] Phone#: Performed By: #### CBC, ADIF F, ANEU, BMP, GFR #### [address] [address] myco on 2020-01-23 Mycoplasma IgM Negative Normal 01-23-2020 [facility] ([place]) (26929) Comment: Result Comment: INTERPRETATI ON OF MYCOPLASMA [...] CBC, ADIF F, ANEU, BMP, GFR #### [address] [address] crp on 2020-01-23 CRP [Mass/Vol] 0.57 <=0.80 mg/dL Normal 01-23-2020 [facility] ([place]) (84398) Comment: Performed By: #### CBC, ADIF F, ANEU, BMP, GFR #### [address] [address] cnpn on 2020-01-23 CNPN Telephone (FAMPWS) Normal 01-23-2020 [place] [facility] SALLY MCGREGOR ([id number]) 1980 [place] Date Time Provider Department ([id number]) 01/23/20 ISABEL ARIAS (MAYA) FAMPWS During your visit today, we recorded the following informati on about you: Lexy Tapia RN 01/23/2020 8:55 AM Signed fyi-Patient calls to report that she went to [facility] with chest pain. Transferred to [facility] and Echo was normal. She will [...] Please reschedule her for later this w rosebud so we have time to get the [...] insurance there is not [facility] so waiting o n community action and [...] Erythrocyte distribution 14.1 11.5-15.5 % Normal 01-22 [facility] (RBC) [Ratio] [facility] ([place]) (16148) Comment: Performed By: #### CBC, ADIF F, ANEU, BMP, GFR #### [address] [address] Hematocrit (Bld) [Volume 35.6 34.0-46.0 % Normal 01-22 [facility] fraction] ([place]) (0000 0) Comment: Performed By: #### CBC, ADIF F, ANEU, BMP, GFR #### [address] [address] Hemoglobin (Bld) 11.9 12.0-16.0 G/dL Low 01-23-2020 [facility] [Mass/Vol] ([place]) (000 00) Comment: Performed By: #### CBC, ADIF F, ANEU, BMP, GFR #### [address] [address] MCH (RBC) [Entitic mass] 30.0 27.0-33.0 pg Normal 01-22 [facility] ([place]) (0000 0) Comment: Performed By: #### CBC, ADIF F, ANEU, BMP, GFR #### [address] [address] MCHC (RBC) [Mass/Vol] 33.4 32.0-36.0 G/dL Normal 01-23-20 20 [facility] ([place]) (0000 0) Comment: Performed By: #### CBC, ADIF F, ANEU, BMP, GFR #### [address] [address] MCV (RBC) [Entitic vol] 89.8 80.0-99.0 fL Normal 2019 [facility] ([place]) (0000 0) Comment: Performed By: #### CBC, ADIF F, ANEU, BMP, GFR #### [place] [id number] Platelet mean volume 8.5 6.6-10.5 fL Normal 0 [facility] (Bld) [Entitic vol] ([place]) ([address]93) Comment: Performed By: #### CBC, ADIF F, ANEU, BMP, GFR #### [address] [address] Platelets (Bld) [#/Vol] 235 150-450 10 3/mcL Normal 2019 [facility] ([place]) (32758) Comment: Performed By: #### CBC, ADIF F, ANEU, BMP, GFR #### [address] [address] RBC (Bld) [#/Vol] 3.97 4.10-5.30 10 6/mcL Low 01-23-2020 A [facility] ([place]) (0000 0) Comment: Performed By: #### CBC, ADIF F, ANEU, BMP, GFR #### [address] [address] WBC (Bld) [#/Vol] 10.20 4.50-10.80 10 3/mcL Normal 01-23-2020 [facility] ([place]) (87387) Comment: Performed By: #### CBC, ADIF F, ANEU, BMP, GFR #### [address] [address] bmp on 2020-01-23 Creatinine [Mass/Vol] 0.94 0.50-1.20 mg/dL Normal 01-23-20 20 [facility] ([place]) (69590) Comment: Performed By: #### CBC, ADIF F, ANEU, BMP, GFR #### [address] [address] Urea nitrogen/Creatinine 20.2 10.0-22.0 ratio Normal 01-22 [facility] [Mass ratio] [facility] ([place]) (31288) Comment: Performed By: #### CBC, ADIF F, ANEU, BMP, GFR #### [address] [address] Calcium [Mass/Vol] 9.4 8.4-10.1 mg/dL Normal 01-23-2020 [facility] ([place]) (0000 0) Comment: Performed By: #### CBC, ADIF F, ANEU, BMP, GFR #### [address] [address] Chloride [Moles/Vol] 106 98-110 mEq/L Normal 0 [facility] ([place]) (0000 0) Comment: Performed By: #### CBC, ADIF F, ANEU, BMP, GFR #### [address] [address] CO2 [Moles/Vol] 28 22-32 mEq/L Normal 01-23-2020 [facility] ([place]) (14655) Comment: Performed By: #### CBC, ADIF F, ANEU, BMP, GFR #### [address] [address] Electrolyte Balance 6.0 4.0-15.0 mEq/L Normal 01-23-2020 [facility] ([place]) (0000 0) Comment: Performed By: #### CBC, ADIF F, ANEU, BMP, GFR #### [address] [address] Glucose [Mass/Vol] 91 70-110 mg/dL Normal 01-23-2020 [facility] ([place]) ([address]21) Comment: Performed By: #### CBC, ADIF F, ANEU, BMP, GFR #### [address] [address] Potassium [Moles/Vol] 4.2 3.5-5.0 mEq/L Normal 01-23-20 20 [facility] ([place]) (0000 0) Comment: Performed By: #### CBC, ADIF F, ANEU, BMP, GFR #### [address] [address] Sodium [Moles/Vol] 140 136-145 mEq/L Normal 01-23-2020 [facility] ([place]) (34507) Comment: Performed By: #### CBC, ADIF F, ANEU, BMP, GFR #### [address] [address] Urea nitrogen [Mass/Vol] 19.0 8.0-22.0 mg/dL Normal 01-22 [facility] ([place]) (74214) Comment: Performed By: #### CBC, ADIF F, ANEU, BMP, GFR #### [address] [address] .morph on 2020-01-13 1 Platelets (Bld) [#/Vol] Normal Normal 2019 [facility] ([place]) ([address]) Comment: Result Comment: Few large pl atelets seen. Performed By: #### CBC, ADIF F, ANEU, BMP, GFR #### [address] [address] RBC morphology finding Nom Normal Normal [facility] (d) ([place]) (0000 0) Comment: Performed By: #### CBC, ADIF F, ANEU, BMP, GFR #### [address] [address] .manual diff on -01-22 Basophil %, Manual 0.0 0.0-2.5 % Normal 01-23-2020 [facility] ([place]) (36999) Comment: Performed By: #### CBC, ADIF F, ANEU, BMP, GFR #### [address] [address] Basophil, Abs Manual 0.00 0.00-0.27 10 3/mcL Normal 0 [facility] ([place]) (99457) Comment: Performed By: #### CBC, ADIF F, ANEU, BMP, GFR #### [address] [address] Cells Counted 100 Normal 01-23-2020 [facility] ([place]) (12351) Comment: Performed By: #### CBC, ADIF F, ANEU, BMP, GFR #### [address] [address] Eosinophil %, Manual 0.0 0.0-6.0 % Normal 0 [facility] ([place]) (82802) Comment: Performed By: #### CBC, ADIF F, ANEU, BMP, GFR #### [address] [address] Eosinophil, Abs Manual 0.00 0.00-0.65 10 3/mcL Normal 020 [facility] ([place]) (78351) Comment: Performed By: #### CBC, ADIF F, ANEU, BMP, GFR #### [place] [address] Lymphocyte %, Manual 16.0 20.0-40.0 % Low 0 [facility] ([place]) (91804) Comment: Performed By: #### CBC, ADIF F, ANEU, BMP, GFR #### [address] [address] Lymphocyte, Abs Manual 1.63 0.90-4.32 10 3/mcL Normal 020 [facility] ([place]) (09063) Comment: Performed By: #### CBC, ADIF F, ANEU, BMP, GFR #### [place] [id number] Monocyte %, Manual 5.0 2.0-13.0 % Normal 01-23-2020 [facility] ([place]) (65615) Comment: Performed By: #### CBC, ADIF F, ANEU, BMP, GFR #### [place] [id number] Monocyte, Abs Manual 0.51 0.09-1.40 10 3/mcL Normal 0 [facility] ([place]) (77269) Comment: Performed By: #### CBC, ADIF F, ANEU, BMP, GFR #### [address] [address] Neutrophil %, Manual 79.0 50.0-75.0 % High 0 [facility] ([place]) (20875) Comment: Performed By: #### CBC, ADIF F, ANEU, BMP, GFR #### [place] [address] Neutrophil, Abs Manual 8.06 2.25-8.10 10 3/[facility] Normal 020 [facility] ([place]) (28259) Comment: Performed By: #### CBC, ADIF F, ANEU, BMP, GFR #### [address] [address] .gfr on 2020-01-23 GFR >60 Normal 0 [facility] ([place]) (26390) Comment: Result Comment: GFR Population mean for Afri can Latvian, Non- Americans Ages 20-29 = 116 mL/min/1.73 [...] CBC, ADIF F, ANEU, BMP, GFR #### [place] [address] GFR Non- >60 Normal 01-22 -2019 [facility] ([place]) (85227) Comment: Result Comment: GFR Population mean for Afri can Latvian, Non- Americans Ages 20-29 = 116 mL/min/1.73 [...] CBC, ADIF F, ANEU, BMP, GFR #### [address] [address] spag on 2020-01-22 SPAG . Normal 01-22-2020 [facility] - Microbiology [facility] ([facility] (38455) PROCEDURE: Streptococcus Pneumoniae Urine Antig [^1 *1] [...] Locations *1: This test was performed at: [facility], [address] [place] [address], [address]- , [place] Comment: Performed By: #### CBC, ADIF F, ANEU, BMP, GFR #### [address] [address] respid on 2020-01-13 0 Adenovirus Not Detected Not Detected Normal 01-22-2020 [facility] ([place]) (0000 0) Comment: Performed By: #### CBC, ADIF F, ANEU, BMP, GFR #### [address] [address] Bordetella Not Detected Not Detected Normal 01-22-2020 [facility] Par[facility]tussis [facility] ([place]) ([address]843) Comment: Performed By: #### CBC, ADIF F, ANEU, BMP, GFR #### [address] [address] Bordetella Pertussis Not Detected Not Detected Normal [facility] ([place]) (91342) Comment: Performed By: #### CBC, ADIF F, ANEU, BMP, GFR #### [address] [address] Chlamydophila Not Detected Not Detected Normal 01-22-2020 [facility] pneumoniae [facility] n ([place]) (15596) Comment: Performed By: #### CBC, ADIF F, ANEU, BMP, GFR #### 02 [address] [address] Coronavirus 229E Not Detected Not Detected Normal [facility] (Not COVID-19) Found ation ([place]) (86579) Comment: Performed By: #### CBC, ADIF F, ANEU, BMP, GFR #### [address] [address] Coronavirus HKU1 Not Detected Not Detected Normal 020 [facility] (Not COVID-19[facility] ([place] (84453) Comment: Performed By: #### CBC, ADIF F, ANEU, BMP, GFR #### [address] [address] Coronavirus NL63 Not Detected Not Detected Normal 020 [facility] (Not COVID-19) [place] (19646) Comment: Performed By: #### CBC, ADIF F, ANEU, BMP, GFR #### [address] [address] Coronavirus OC43 Not Detected Not Detected Normal 020 [facility] (Not COVID-19) [place] (37653) Comment: Performed By: #### CBC, ADIF F, ANEU, BMP, GFR #### [place] [address] Human Metapneumovirus Not Detected Not Detected Normal [facility] ([place]) (32347) Comment: Performed By: #### CBC, ADIF F, ANEU, BMP, GFR #### [place] [address] Influenza A Not Detected Not Detected Normal 01-22-2020 A [facility] ([place]) (0000 0) Comment: Performed By: #### CBC, ADIF F, ANEU, BMP, GFR #### [place] [address] Influenza B Not Detected Not Detected Normal 01-22-2020 A [facility] ([place]) (0000 0) Comment: Performed By: #### CBC, ADIF F, ANEU, BMP, GFR #### [place] [address] Mycoplasma Not Detected Not Detected Normal 01-22-2020 [facility] pneumoniae Foundatio n ([place]) (24098) Comment: Performed By: #### CBC, ADIF F, ANEU, BMP, GFR #### [place] [address] Parainfluenza 1 Not Detected Not Detected Normal 01-22-20 20 [facility] ([place]) (38904) Comment: Performed By: #### CBC, ADIF F, ANEU, BMP, GFR #### [place] [address] Parainfluenza 2 Not Detected Not Detected Normal 01-22-20 20 [facility] ([place]) (14597) Comment: Performed By: #### CBC, ADIF F, ANEU, BMP, GFR #### [place] [address] Parainfluenza 3 Not Detected Not Detected Normal 01-22-20 [facility] ([place]) (73256) Comment: Performed By: #### CBC, ADIF F, ANEU, BMP, GFR #### [place] [address] Parainfluenza 4 Not Detected Not Detected Normal 01-22-20 [facility] ([place]) (30647) Comment: Performed By: #### CBC, ADIF F, ANEU, BMP, GFR #### [address] [address] Respiratory Not Detected Not Detected Normal 01-22-2020 A [facility] Syncytial Virus Foun dation ([place]) (28421) Comment: Performed By: #### CBC, ADIF F, ANEU, BMP, GFR #### [address] [address] Rhinovirus/Enterovirus Not Detected Not Detected Normal 0 01-22-2020 [facility] ([place]) (87161) Comment: Performed By: #### CBC, ADIF F, ANEU, BMP, GFR #### [address] [address] sonali on 2020-01-22 SONALI . Normal 01-22-2020 [facility] MICRO - Microbiology [facility] ([place]) (77845) PROCEDURE: Legionella Urine Ag [*1] SOURCE: Urine [...] Locations *1: This test was performed at: [facility], [address] [place] [address], [address] , [place] Comment: Performed By: #### CBC, ADIF F, ANEU, BMP, GFR #### [address] [address] ldh on 2020-01-22 LDH 194 120-246 U/L Normal 01-22-2020 [facility]) (02743) Comment: Performed By: #### CBC, ADIF F, ANEU, BMP, GFR #### [facility] [address] [place] [address] fib on 2020-01-22 Fibrinogen 414 250-550 mg/dL Normal 01-22-2020 [facility] ([place]) (43490) Comment: Performed By: #### CBC, ADIF F, ANEU, BMP, GFR #### [facility] [address] [place] [address] ferr on 2020-01-22 Ferritin [Mass/Vol] 40 8-252 ng/mL Normal 01-22-2020 [facility] ([place]) (62811) Comment: Performed By: #### CBC, ADIF F, ANEU, BMP, GFR #### [facility] [address] [place] [address] dimer on 2020-01-22 Fibrin D-dimer FEU IA <200 0-230 ug/mL Normal 01-22-20 20 [facility] (d) [Mass/Vol] ([place] ) (04111) Comment: Result Comment: Results repo rted in [...] CBC, ADIF F, ANEU, BMP, GFR #### [facility] [address] [place] [address] [address] angiography chest w/contrast on 2020-01-22 CT ANGIOGRAPHY ORIGINAL Normal 01-22-2020 [facility] CHEST W/CONTRAST CT PULMONARY ANGIOGRAM WITH IV CONTRAST: with post-processing, volume rendering and 3-D acquisitions. This exam was performed according to our departmental dose optimization program, and includes the [facility] ([place]) llowing measures where appli cable: automated exposure control, adjustment of the mAs and/or kVp according to patient size and/or exam, and an iterative reconstruction algorithm. Patient received 13 hour (52335) contrast allergy preparation. CLINICAL STATEMENT: elevated d [...] Erythrocyte distribution 13.7 11.5-15.5 % Normal 01-21 [facility] width (RBC) [Ratio] [facility] ([place]) (79973) Comment: Performed By: #### CBC, ADIF F, ANEU, BMP, GFR #### [facility] [address] [place] [address] Hematocrit (Bld) [Volume 36.0 34.0-46.0 % Normal 01-21 [facility] fraction] ([place]) (0000 0) Comment: Performed By: #### CBC, ADIF F, ANEU, BMP, GFR #### [place] [address] Hemoglobin (Bld) 11.9 12.0-16.0 G/dL Low 01-22-2020 [facility] [Mass/Vol] ([place]) (000 00) Comment: Performed By: #### CBC, ADIF F, ANEU, BMP, GFR #### [place] [address] MCH (RBC) [Entitic mass] 29.6 27.0-33.0 pg Normal 01-21 [facility] ([place]) (0000 0) Comment: Performed By: #### CBC, ADIF F, ANEU, BMP, GFR #### [place] [address] MCHC (RBC) [Mass/Vol] 33.0 32.0-36.0 G/dL Normal 01-22-20 20 [facility] ([place]) (0000 0) Comment: Performed By: #### CBC, ADIF F, ANEU, BMP, GFR #### [place] [address] MCV (RBC) [Entitic vol] 89.8 80.0-99.0 fL Normal 2019 [facility] ([place]) (0000 0) Comment: Performed By: #### CBC, ADIF F, ANEU, BMP, GFR #### [place] [address] Platelet mean volume 8.6 6.6-10.5 fL Normal 0 [facility] (Bld) [Entitic vol] ([place]) (58196) Comment: Performed By: #### CBC, ADIF F, ANEU, BMP, GFR #### [place] [id number] Platelets (Bld) [#/Vol] 269 150-450 10 3/mcL Normal 2019 [facility] ([place]) (38764) Comment: Performed By: #### CBC, ADIF F, ANEU, BMP, GFR #### [address] [address] RBC (Bld) [#/Vol] 4.01 4.10-5.30 10 6/mcL Low 01-22-2020 [facility] ([place]) (0000 0) Comment: Performed By: #### CBC, ADIF F, ANEU, BMP, GFR #### [address] [address] WBC (Bld) [#/Vol] 12.20 4.50-10.80 10 3/mcL High 01-22-2020 [facility] ([place]) (0000 0) Comment: Performed By: #### CBC, ADIF F, ANEU, BMP, GFR #### [address] [address] bmp on 2020-01-22 Calcium [Mass/Vol] 9.5 8.4-10.1 mg/dL Normal 01-22-2020 [facility] ([place]) (0000 0) Comment: Performed By: #### CBC, ADIF F, ANEU, BMP, GFR #### [place] [id number] Chloride [Moles/Vol] 106 98-110 mEq/L Normal 0 [facility] ([place]) (0000 0) Comment: Performed By: #### CBC, ADIF F, ANEU, BMP, GFR #### [address] [address] CO2 [Moles/Vol] 24 22-32 mEq/L Normal 01-22-2020 [facility] ([place]) (75837) Comment: Performed By: #### CBC, ADIF F, ANEU, BMP, GFR #### [address] [address] Creatinine [Mass/Vol] 0.76 0.50-1.20 mg/dL Normal 01-22-20 20 [facility] ([place]) (60194) Comment: Performed By: #### CBC, ADIF F, ANEU, BMP, GFR #### [address] [address] Electrolyte Balance 6.0 4.0-15.0 mEq/L Normal 01-22-2020 [facility] ([place]) (0000 0) Comment: Performed By: #### CBC, ADIF F, ANEU, BMP, GFR #### [address] [address] Glucose [Mass/Vol] 149 70-110 mg/dL High 01-22-2020 [facility] ([place]) (27228) Comment: Performed By: #### CBC, ADIF F, ANEU, BMP, GFR #### [address] [address] Potassium [Moles/Vol] 4.1 3.5-5.0 mEq/L Normal 01-22-20 [facility] ([place]) (0000 0) Comment: Performed By: #### CBC, ADIF F, ANEU, BMP, GFR #### [address] [address] Sodium [Moles/Vol] 136 136-145 mEq/L Normal 01-22-2020 [facility] ([place]) (32824) Comment: Performed By: #### CBC, ADIF F, ANEU, BMP, GFR #### [address] [address] Urea nitrogen [Mass/Vol] 12.0 8.0-22.0 mg/dL Normal 01-21 [facility] ([place]) (09614) Comment: Performed By: #### CBC, ADIF F, ANEU, BMP, GFR #### [address] [address] Urea nitrogen/Creatinine 15.8 10.0-22.0 ratio Normal 01-21 [facility] [Mass ratio] Found[facility] ([place]) (24714) Comment: Performed By: #### CBC, ADIF F, ANEU, BMP, GFR #### [address] [address] .neuabs on Neutrophils (Bld) 10.70 2.25-8.10 10 3/mcL High 01-22-2020 [facility] [#/Vol] [facility] ([place]) (05656) Comment: Performed By: #### CBC, ADIF F, ANEU, BMP, GFR #### [address] [address] .gfr on 2020-01-22 GFR Non- >60 Normal 01-21 [facility] ([place]) (62531) Comment: Result Comment: GFR Population mean for Afri can Latvian, Non- Americans Ages 20-29 = 116 mL/min/1.73 [...] CBC, ADIF F, ANEU, BMP, GFR #### [place] [id number] GFR >60 Normal 0 [facility] ([place]) (30727) Comment: Result Comment: GFR Population mean for Afri can Latvian, Non- Americans Ages 20-29 = 116 mL/min/1.73 [...] CBC, ADIF F, ANEU, BMP, GFR #### [address] [address] .auto diff on 01-21 Ammonia (P) [Mass/Vol] 0.30 0.09-1.40 10 3/mcL Normal 01-21-2 020 [facility] ([place]) (34068) Comment: Performed By: #### CBC, ADIF F, ANEU, BMP, GFR #### [address] [address] Basophils (Bld) 0.00 0.00-0.27 10 3/mcL Normal 01-22-2020 [facility] [#/Vol] [facility] ([place]) (15202) Comment: Performed By: #### CBC, ADIF F, ANEU, BMP, GFR #### [address] [address] Basophils/100 WBC (Bld) 0.3 0.0-2.5 % Normal 2019 [facility] ([place]) (0000 0) Comment: Performed By: #### CBC, ADIF F, ANEU, BMP, GFR #### [address] [address] Eosinophils (Bld) 0.00 0.00-0.65 10 3/mcL Normal 01-22-2020 [facility] [#/Vol] [facility] ([place]) (48851) Comment: Performed By: #### CBC, ADIF F, ANEU, BMP, GFR #### [address] [address] Eosinophils/100 WBC (Bld) 0.1 0.0-6.0 % Normal 01-12 0 [facility] ([place]) (0000 0) Comment: Performed By: #### CBC, ADIF F, ANEU, BMP, GFR #### [address] [address] Lymphocytes (Bld) 1.10 0.90-4.32 10 3/mcL Normal 01-22-2020 [facility] [#/Vol] [facility] ([place]) (43550) Comment: Performed By: #### CBC, ADIF F, ANEU, BMP, GFR #### [address] [address] Lymphocytes/100 WBC (Bld) 9.3 20.0-40.0 % Low - 0-2019 [facility] ([place]) (0000 0) Comment: Performed By: #### CBC, ADIF F, ANEU, BMP, GFR #### [address] [address] Monocytes/100 WBC (Bld) 2.2 2.0-13.0 % Normal 2019 [facility] ([place]) (0000 0) Comment: Performed By: #### CBC, ADIF F, ANEU, BMP, GFR #### [address] [address] Neutrophils/100 WBC (Bld) 88.1 50.0-75.0 % High 01-12 [facility] ([place]) (0000 0) Comment: Performed By: #### CBC, ADIF F, ANEU, BMP, GFR #### [address] [address] urinalysis with microscopy on 2020-01-21 Amorphous NONE Normal 01-21-2020 [facility] (81133) Comment: Performed By: #### [id number] ## ## [facility],[address] [place] [address] Bacteria LM.HPF (Urine sed) 3+ Normal [facility] [#/Area] [facility] ( 88602) Comment: Performed By: #### [id number] ## ## [facility],[address] [place] [address] Bilirubin [Mass/Vol] NEG NORMAL: NEGATIVE mg/dL Normal [facility]ital (74941) Comment: Performed By: #### [id number] ## ## [facility],[address] [place] [address] 13598 Blood 10 NORMAL: NEGATIVE Abnormal 01-21-2020 [facility] (92854) Comment: Performed By: #### [id number] ## ## [facility],[address] [place] [address] Casts LM.LPF (Urine sed) NONE Normal 01-20 [facility] [#/Area] [facility] ( 81544) Comment: Performed By: #### [id number] ## ## [facility],[address] [place] [address] Clarity (U) sl.cloudy NORMAL: CLEAR Normal 01-21-2020 [facility] ( 11984) Comment: Performed By: #### [id number] ## ## [facility],[address] [place] [address] Color (U) p.yel NORMAL: YELLOW Normal 01-21-2020 [facility] (70925) Comment: Performed By: #### [id number] ## ## [facility],[address] [place] [address] 95083 Crystals LM Nom (Urine sed) NONE Normal [facility] ( 52562) Comment: Performed By: #### [id number] ## ## [facility],[address] [place] [address] 53281 Epi Cells MANY Normal 01-21-2020 [facility] (22183) Comment: Performed By: #### [id number] ## ## [facility],[address] [place] [address] Glucose [Mass/Vol] NORM NORMAL: NORMAL Normal 2019 [facility] ( 70397) Comment: Performed By: #### [id number] ## ## [facility],[address] [place] [address]13 Ketone NEG NORMAL: NEGATIVE Normal 01-21-2020 [facility] (88350) Comment: Performed By: #### [id number] ## ## [facility],[address] [place] [address] Mucous NONE Normal 01-21-2020 [facility] (97528) Comment: Performed By: #### [id number] ## ## [facility],[address] [place] [address] Nitrite Ql (U) NEG NORMAL: NEGATIVE Normal 01-21-20 [facility] ( 76717) Comment: Performed By: #### [id number] ## ## [facility] [place] [address]372 pH (Bld) 5 NORMAL: 5.0-8.0 Normal 01-21-2020 [facility] (17338) Comment: Performed By: #### [id number] ## ## [facility],[address] [place] [address] Protein (U) NEG NORMAL: NEGATIVE mg/dL Normal 01-21-2020 [facility] [Mass/Vol] [facility] (25843) Comment: Performed By: #### [id number] ## ## [facility],[address] [place] [address] 26359 Rbc 0-5 0-3 / hpf Normal 01-21-2020 [facility] (85328) Comment: Performed By: #### [id number] ## ## [facility],[address] [place] [address] Sp [place] 1.020 NORMAL: 1.010-1.030 Normal 0 [facility] ( 99001) Comment: Performed By: #### [id number] ## ## [facility],[address] [place] [address] Specimen type Nom (Spec) UNSPECIFIED Normal [facility] ( 09439) Comment: Performed By: #### [id number] ## ## [facility],[address] [place] [address]147 URINALYSIS WITH MICROSCOPY Normal [facility] (71492) Comment: Result Comment: URINALYSIS Performed By: #### [id number] ## ## [facility],[address] [place] [address] 13172 Urobilinog NORM NORMAL: NORMAL Normal 01-21-2020 [facility] (24905) Comment: Performed By: #### [id number] ## ## [facility],[address] [place] [address] 11750 Wbc 1-5 0-5 / hpf Normal 01-21-2020 [facility] (85031) Comment: Performed By: #### [id number] ## ## [facility],[address] [place] [address] WBC (Bld) [#/Vol] NEG NORMAL: NEGATIVE 10*3/uL Normal 01-20 [facility] (36957) Comment: Result Comment: URINE MICROS COPIC Performed By: #### [id number] ## ## [facility],[address] [place] [address]3593 Yeast LM Ql (Urine sed) NONE Normal 2019 [facility] (91472) Comment: Performed By: #### [id number] ## ## [facility],[address] [place] [address] troponin on 2020-01 Troponin I.cardiac <0.01 0.00 - 0.05 ng/mL Normal 0 [facility] [Mass/Vol] [facility] (06860) Comment: Result Comment: Elevated tro ponin (above [...] as heterophile antibodi es). Performed By: #### [id number] ## ## [facility],[address] [place] [address]94 tropi on 2020-01-21 Troponin I.cardiac <0.015 0.000-0.040 ng/mL Normal 0 [facility] [Mass/Vol] [facility] ([place] (98231) Comment: Result Comment: Troponin I r eference ranges (05/22/14): 0.00-0.040 ng/mL Negative an d non-diagnostic. >0.040 ng/mL Consistent with cardiac damage, increased clinical risk and possibility of myocardial in farction. Serial measurements, a rise & fall in test results, clinical histo ry, appropriate symptoms and/or ECG changes may help assess possibility of [place]. *Other non-acute coronary sy ndrome conditions such as CHF, myoc arditis, pulmonary emboli, sepsis and cardiac surgery could result in myoc ardial damage and increased troponi n levels. Performed By: #### TROPI ### # [place] [address] serum qual on 2020-01-21 EXTERNAL QC DONE? YES Normal 01-21-2020 [facility] (51073) Comment: Performed By: #### [id number] ## ## [facility],[address] [place] [address] INTERNAL QC PASS Normal 01-21-2020 [facility] (77605) Comment: Performed By: #### [id number] ## ## [facility],[address] [place], [place] [address] SER NEGATIVE NEGATIVE Normal 01-21-2020 [facility] (91530) Comment: Performed By: #### [id number] ## ## [facility],[address] [place] [address] d-dimer, quantitative on 2020-01-21 D-DIMER QUANT 256 0 - 230 ng/ml High 01-21-2020 [facility] (89981) Comment: Performed By: #### [id number] ## ## [facility],[address] [place] [address]386 D-DIMER, QUANTITATIVE Normal 01-21-20 20 [facility] (75558) Comment: Result Comment: QUANT D-DIME R Performed By: #### [id number] ## ## [facility],[address] [place], [place] [id number] ct brain w/o contrast on 2020-01-21 CT BRAIN W/O [facility] Normal 0 [facility] [address] [place] [address] ([address]) Patient: SALLY MCGREGOR Phone#: : 1980 Age: 39 Gender: F Pt. Type: ER Account: [id number] Location: 052 Ordering: DR. ANA ALCANTAR Exam Date: 01/20/202023:41 Family Phys: ISABEL ARIAS Charge Code: 653604 Physician: Canyon Order #: [id number] DLP Dose#: 57.50 PROCEDURE: CT BRAIN WITHOUT CONTRAST COMPARISON: [facility], CT, BRAIN W/O CON, 01/29/2017, [...] 39 Gender: F Pt. Type: ER Account: [id number] Location: 052 Ordering: DR. ANA ALCANTAR Exam Date: 01/20/2020/23:41 Family Phys: ISABEL ARIAS Charge Code: 872220 Physician: Canyon Order #: [id number] DLP Dose#: 57.50 Approved by: Kelsey Mae MD on 01/21/2020 at 18:04 cmp with egfr on 31-01-09 Age - Reported 39 years Normal 01-21-2020 [facility] (93414) Comment: Performed By: #### [id number] ## ## [facility],[address] [place] [address] Albumin [Mass/Vol] 4.3 3.4 - 4.8 g/dL Normal 01-21-2020 [facility] ( 28813) Comment: Performed By: #### [id number] ## ## [facility],[address] [place] [address] 0[address]95 Albumin/Globulin [Mass 1.5 0.9 - 1.6 {ratio} Normal 020 [facility]] [facility] (05531) Comment: Performed By: #### [id number] ## ## [facility],[address] [place] [address] 24900 ALK PHOS 71 38 - 126 U/L Normal 01-21-2020 [facility] (76236) Comment: Performed By: #### [id number] ## ## [facility],[address] [place] [address] 89597 ALT/SGPT 11 8 - 35 U/L Normal 01-21-2020 [facility] (25770) Comment: Performed By: #### [id number] ## ## [facility],[address] [place] [address] 64853 Anion gap [Moles/Vol] 12 10 - 20 mmol/L Normal 01-21-20 [facility] ( 33569) Comment: Performed By: #### [id number] ## ## [facility],[address] [place] [address] 84510 AST/SGOT 12 13 - 39 U/L Low 01-21-2020 [facility] (74086) Comment: Performed By: #### [id number] ## ## [facility],[address] [place] [address] 09231 B/C RATIO 19 0 - 30 ratio Normal 01-21-2020 [facility] (51588) Comment: Performed By: #### [id number] ## ## [facility] [address] Bilirubin [Mass/Vol] 0.3 0.0 - 1.5 mg/dl Normal 0 [facility] ( 40987) Comment: Performed By: #### [id number] ## ## [facility],[address] [place] [address] 88058 Calcium [Mass/Vol] 9.2 8.6 - 10.2 mg/dl Normal 01-21-2020 [facility] ( 87725) Comment: Performed By: #### [id number] ## ## [facility],[address] [place] [address] 11951 Chloride [Moles/Vol] 102 98 - 107 mmol/L Normal 0 [facility] ( 43602) Comment: Performed By: #### [id number] ## ## [facility],[address] [place] [address] 41536 CO2 [Moles/Vol] 25.6 21.0 - 31.0 mmol/L Normal 01-21-2020 [facility] ( 61069) Comment: Performed By: #### [id number] ## ## [facility],[address] [place] [address] 26572 Creatinine [Mass/Vol] 1.1 0.6 - 1.2 mg/dl Normal 01-21-20 20 [facility] ( 72148) Comment: Performed By: #### [id number] ## ## [facility],[address] [place] [address] 96609 GFR/1.73 sq M >60 60 - 999 mL/min/{1.73_m2} Normal 0 [facility] non-blacks MDRD (000 00) (S/P/Bld) [Vol [...] OF AGE AND OLDER. Performed By: #### [id number] ## ## [facility],[address] [place] [address] 03305 GFR/1.73 sq M predicted among Normal 01-21-2020 [facility] non-blacks MDRD (S/P/Bld) [Vol Hospital (27192) rate/Area] Comment: Result Comment: COMPREHENSIV E METABOLIC PANEL Performed By: #### [id number] ## ## [facility],[address] [place] [address] 56837 GFR/1.73 sq M predicted 55 60 - 999 ML/MINUTE Low 2019 [facility] among non-blacks MDRD Hospital (14403) (S/P/Bld) [Vol rate/Area] Comment: Performed By: #### [id number] ## ## [facility],[address] [place] [address] 72641 Globulin (S) [Mass/Vol] 2.9 1.5 - 3.8 G/DL Normal 2019 [facility] ( 47962) Comment: Performed By: #### [id number] ## ## [facility],[address] [place] [address] 66939 Glucose [Mass/Vol] 100 74 - 106 mg/dl Normal 01-21-2020 [facility] ( 84104) Comment: Performed By: #### [id number] ## ## [facility],[address] [place] [address] 81052 Potassium [Moles/Vol] 3.6 3.5 - 5.1 mmol/L Normal 01-21-20 20 [facility] ( 18181) Comment: Performed By: #### [id number] ## ## [facility],[address] [place] [address] 84808 Protein [Mass/Vol] 7.2 6.4 - 8.3 g/dl Normal 01-21-2020 [facility] ( 65642) Comment: Performed By: #### [id number] ## ## [facility] [facility],[address] [place] [address] Sodium [Moles/Vol] 136 136 - 145 mmol/l Normal 01-21-2020 [facility] ( 15472) Comment: Performed By: #### [id number] ## ## [facility],[address] [place] [address] 03758 Urea nitrogen [Mass/Vol] 21 6 - 20 mg/dl High 01-20 [facility] ( 40679) Comment: Performed By: #### [id number] ## ## [facility],[address] [place] [address] 29568 chest 2 views on 31-01-09 CHEST 2 VIEWS [facility] Normal 01-21-20 [facility] [address] [place] [address] ([id number]) Patient: SALLY MCGREGOR Phone#: : 1980 Age: 39 Gender: F Pt. Type: ER Account: [id number] Location: 052 Ordering: DR. AAN ALCANTAR Exam Date: 01/20/2020/23:45 Family Phys: ISABEL ARIAS Charge Code: [id number] Physician: Canyon Order #: [id number] [id number] Dose#: PROCEDURE: X-RAY CHEST 2 VIEWS COMPARISON: [facility], , CHEST 2 VIEWS, 11/25/2019, [...] Erythrocyte distribution 13.6 11.5-15.5 % Normal 01-20 [facility] width (RBC) [Ratio] [facility] ([place]) (17428) Comment: Performed By: #### CBC, ADIF F, ANEU, BMP, GFR #### [address] [address] Hematocrit (Bld) [Volume 35.6 34.0-46.0 % Normal 01-20 [facility] fraction] ([place]) (0000 0) Comment: Performed By: #### CBC, ADIF F, ANEU, BMP, GFR #### [address] [address] Hemoglobin (Bld) 11.4 12.0-16.0 G/dL Low 01-21-2020 [facility] [Mass/Vol] ([place]) (000 00) Comment: Performed By: #### CBC, ADIF F, ANEU, BMP, GFR #### [address] [address] MCH (RBC) [Entitic mass] 29.5 27.0-33.0 pg Normal 01-20 [facility] ([place]) (0000 0) Comment: Performed By: #### CBC, ADIF F, ANEU, BMP, GFR #### [address] [address] MCHC (RBC) [Mass/Vol] 32.2 32.0-36.0 G/dL Normal 01-21-20 [facility] ([place]) (0000 0) Comment: Performed By: #### CBC, ADIF F, ANEU, BMP, GFR #### [address] [address] MCV (RBC) [Entitic vol] 91.7 80.0-99.0 fL Normal 2019 [facility] ([place]) (0000 0) Comment: Performed By: #### CBC, ADIF F, ANEU, BMP, GFR #### [place] [address] Platelet mean volume 8.6 6.6-10.5 fL Normal 0 [facility] (Bld) [Entitic vol] ([place]) (02366) Comment: Performed By: #### CBC, ADIF F, ANEU, BMP, GFR #### [place] [address] Platelets (Bld) [#/Vol] 250 150-450 10 3/mcL Normal 2019 [facility] ([place]) (11677) Comment: Performed By: #### CBC, ADIF F, ANEU, BMP, GFR #### [place] [address] RBC (Bld) [#/Vol] 3.88 4.10-5.30 10 6/mcL Low 01-21-2020 A [facility] ([place]) (0000 0) Comment: Performed By: #### CBC, ADIF F, ANEU, BMP, GFR #### [place] [address] WBC (Bld) [#/Vol] 6.20 4.50-10.80 10 3/mcL Normal 01-21-2020 [facility] ([place]) (24895) Comment: Performed By: #### CBC, ADIF F, ANEU, BMP, GFR #### [place] [address] cbc + diff on 01-20 Basophils (Bld) 0.10 0.00 - 0.10 x10EE3/UL Normal 01-21-2020 Leland Johnston [#/Vol] [facility] (98589) Comment: Performed By: #### [id number] ## ## Mello Johnston [facility],[address] [place] [address]75 Basophils/100 WBC (Bld) 1.1 0.0 - 2.0 % Normal 2019 [facility] ( 75608) Comment: Performed By: #### [id number] ## ## [facility],[address] [place] [address]373 CBC + DIFF Normal 01-21-2020 [facility] (08077) Comment: Result Comment: CBC-COMPLETE BLOOD COUNT Performed By: #### [id number] ## ## [facility],[address] [place], [place] [id number] Eosinophils (Bld) 0.40 0.00 - 0.50 x10EE3/UL Normal 01-21-2020 [facility] [#/Vol] [facility] (72672) Comment: Performed By: #### [id number] ## ## [place] [id number] Eosinophils/100 WBC (Bld) 5.5 0.0 - 7.0 % Normal [facility] ( 64694) Comment: Performed By: #### [id number] ## ## [address] [address] Erythrocyte distribution 13.5 12.0 - 15.6 % Normal [facility] width (RBC) [Ratio] [facility] (22341) Comment: Performed By: #### [id number] ## ## [address] [address] Hematocrit (Bld) [Volume 33.8 34.0 - 46.0 % Low [facility] fraction] [facility] ( 55578) Comment: Performed By: #### [id number] ## ## [address] [address] Hemoglobin (Bld) 11.7 12.0 - 16.0 g/dl Low 01-21-2020 [facility] [Mass/Vol] [facility] (57326) Comment: Performed By: #### [id number] ## ## [address],[place] [address] Lymphocytes (Bld) 2.30 0.80 - 2.80 x10EE3/UL Normal 01-21-2020 [facility] [#/Vol] [facility] (19406) Comment: Performed By: #### [id number] ## ## [place] [id number] Lymphocytes/100 WBC (Bld) 30.4 20.0 - 45.0 % Normal [facility] ( 02376) Comment: Performed By: #### [id number] ## ## [address] [address] MANUAL DIFF N/A Normal 01-21-2020 [facility] (39342) Comment: Performed By: #### [id number] ## ## [address] [address] MCH (RBC) [Entitic mass] 31 27 - 33 pg Normal 01-20 [facility] ( 00648) Comment: Performed By: #### [id number] ## ## [address] [address] MCHC (RBC) [Mass/Vol] 35 32 - 36 X10 3 Normal 01-21-20 20 [facility] ( 25131) Comment: Performed By: #### [id number] ## ## [address] [address] MCV (RBC) [Entitic vol] 88 80 - 99 fl Normal 2019 [facility] ( 18199) Comment: Performed By: #### [id number] ## ## [address] [address] Monocytes (Bld) 0.50 0.20 - 1.00 x10EE3/UL Normal 01-21-2020 [facility] [#/Vol] [facility] (62688) Comment: Performed By: #### [id number] ## ## [facility],[address] [place] [address] MONOS % 6.5 0.0 - 10.0 % Normal 01-21-2020 [facility] (44278) Comment: Performed By: #### [id number] ## ## [facility],[address] [place] [address] 24084 Morphology Adrian (Bld) [Interp] N/A Normal 01-21-2020 [facility] ( 05151) Comment: Performed By: #### [id number] ## ## [facility],[address] [place] [address]111 Neutrophils (Bld) 4.30 1.50 - 7.10 x10EE3/UL Normal 01-21-2020 [facility] [#/Vol] [facility] (00923) Comment: Performed By: #### [id number] ## ## [facility],[address] [place] [address] Neutrophils/100 WBC (Bld) 56.5 46.0 - 76.0 % Normal [facility] ( 75594) Comment: Performed By: #### [id number] ## ## [facility],[address] [place] [address] Platelet mean volume 8.3 6.6 - 10.5 fl Normal 01-21-20 20 [facility] (Bld) [Entitic vol] [facility] (19421) Comment: Result Comment: AUTOMATED DI FFERENTIAL Performed By: #### [id number] ## ## [facility],[address] [place] [address] Platelets (Bld) 298 150 - 450 x10EE3/UL Normal 01-21-2020 [facility] [#/Vol] [facility] (75322) Comment: Performed By: #### [id number] ## ## [facility],[address] [place] [address] RBC (Bld) [#/Vol] 3.82 4.10 - 5.30 x 10EE6/UL Low 0 [facility] ( 62552) Comment: Performed By: #### [id number] ## ## [facility],[address] [place] [address] WBC (Bld) [#/Vol] 7.6 4.5 - 10.8 x 10EE3/UL Normal 01-21-2020 [facility] ( 06012) Comment: Performed By: #### [id number] ## ## [facility],[address] [place] [address] bmp on 2020-01-21 Creatinine [Mass/Vol] 0.96 0.50-1.20 mg/dL Normal 01-21-20 20 [facility] ([place]) (18838) Comment: Performed By: #### CBC, ADIF F, ANEU, BMP, GFR #### [address] [address] Urea nitrogen/Creatinine 18.8 10.0-22.0 ratio Normal 01-20 [facility] [Mass ratio] [facility] ([place]) (89228) Comment: Performed By: #### CBC, ADIF F, ANEU, BMP, GFR #### [address] [address] Calcium [Mass/Vol] 8.7 8.4-10.1 mg/dL Normal 01-21-2020 [facility] ([place]) (0000 0) Comment: Performed By: #### CBC, ADIF F, ANEU, BMP, GFR #### [address] [address] Chloride [Moles/Vol] 108 98-110 mEq/L Normal 0 [facility] ([place]) (0000 0) Comment: Performed By: #### CBC, ADIF F, ANEU, BMP, GFR #### [address] [address] CO2 [Moles/Vol] 26 22-32 mEq/L Normal 01-21-2020 [facility] ([place]) (93750) Comment: Performed By: #### CBC, ADIF F, ANEU, BMP, GFR #### [place] [address] Electrolyte Balance 4.0 4.0-15.0 mEq/L Normal 01-21-2020 [facility] ([place]) (0000 0) Comment: Performed By: #### CBC, ADIF F, ANEU, BMP, GFR #### [place] [id number] Glucose [Mass/Vol] 85 70-110 mg/dL Normal 01-21-2020 [facility] ([place]) (24547) Comment: Performed By: #### CBC, ADIF F, ANEU, BMP, GFR #### [place] [address] Potassium [Moles/Vol] 4.1 3.5-5.0 mEq/L Normal 01-21-20 [facility]) (0000 0) Comment: Performed By: #### CBC, ADIF F, ANEU, BMP, GFR #### [place] [address] Sodium [Moles/Vol] 138 136-145 mEq/L Normal 01-21-2020 [facility] ([place]) (31568) Comment: Performed By: #### CBC, ADIF F, ANEU, BMP, GFR #### [place] [address] Urea nitrogen [Mass/Vol] 18.0 8.0-22.0 mg/dL Normal 01-20 [facility] ([place]) (74684) Comment: Performed By: #### CBC, ADIF F, ANEU, BMP, GFR #### [address] [address] .neuabs on Neutrophils (Bld) 3.50 2.25-8.10 10 3/mcL Normal 01-21-2020 [facility] [#/Vol] [facility] ([place]) (09684) Comment: Performed By: #### CBC, ADIF F, ANEU, BMP, GFR #### [address] [address] .gfr on 2020-01-21 GFR Non- >60 Normal 01-20 [facility] ([place]) (29832) Comment: Result Comment: GFR Population mean for Afri can Latvian, Non- Americans Ages 20-29 = 116 mL/min/1.73 [...] CBC, ADIF F, ANEU, BMP, GFR #### [address] [address] GFR >60 Normal 0 [facility] ([place]) (94649) Comment: Result Comment: GFR Population mean for Afri can Latvian, Non- Americans Ages 20-29 = 116 mL/min/1.73 [...] CBC, ADIF F, ANEU, BMP, GFR #### [address] [address] .auto diff on 01-20 Ammonia (P) [Mass/Vol] 0.40 0.09-1.40 10 3/mcL Normal 020 [facility] ([place]) (79375) Comment: Performed By: #### CBC, ADIF F, ANEU, BMP, GFR #### [address] [address] Basophils (Bld) 0.00 0.00-0.27 10 3/mcL Normal 01-21-2020 [facility] [#/Vol] [facility] ([place]) (45545) Comment: Performed By: #### CBC, ADIF F, ANEU, BMP, GFR #### [address] [address] Basophils/100 WBC (Bld) 0.5 0.0-2.5 % Normal 2019 [facility] ([place]) (0000 0) Comment: Performed By: #### CBC, ADIF F, ANEU, BMP, GFR #### [address] [address] Eosinophils (Bld) 0.30 0.00-0.65 10 3/mcL Normal 01-21-2020 [facility] [#/Vol] [facility] ([place]) (05193) Comment: Performed By: #### CBC, ADIF F, ANEU, BMP, GFR #### [address] [address] Eosinophils/100 WBC (Bld) 5.4 0.0-6.0 % Normal [facility] ([place]) (0000 0) Comment: Performed By: #### CBC, ADIF F, ANEU, BMP, GFR #### [address] [address] Lymphocytes (Bld) 2.00 0.90-4.32 10 3/mcL Normal 01-21-2020 [facility] [#/Vol] [facility] ([place]) (03848) Comment: Performed By: #### CBC, ADIF F, ANEU, BMP, GFR #### [address] [address] Lymphocytes/100 WBC (Bld) 32.4 20.0-40.0 % Normal 05-0 [facility] ([place]) (37265) Comment: Performed By: #### CBC, ADIF F, ANEU, BMP, GFR #### [address] [address] Monocytes/100 WBC (Bld) 6.1 2.0-13.0 % Normal 2019 [facility] ([place]) (0000 0) Comment: Performed By: #### CBC, ADIF F, ANEU, BMP, GFR #### [facility] [address] [place] [address] Neutrophils/100 WBC (Bld) 55.6 50.0-75.0 % Normal 050 [facility] ([place]) (65546) Comment: Performed By: #### CBC, ADIF F, ANEU, BMP, GFR #### [facility] [address] [place] [address] cnpn on 2020-01-20 [facility] Normal 01-20-2020 [place] [facility] SALLY MCGREGOR ([id number]) 1980 [place] Date Time Provider Department ([id number]) 01/20/20 MARCELINO MEJIA [facility] During your visit today, we recorded the following informati on about you: Christopher Carcamo RN 01/20/2020 11:54 AM Signed Patient asking if Chaz Stroud, would sent AB Rx to [facility], for her bad tooth? Her dentist in [place] is not open. Has an appt with a dentist in [place] on . Has a wound on tongue [...] (METRONIDAZOLE HCL) 03/11/2010 12 - Shortness of [place] th IBUPROFEN 06/18/2016 8 - GI Upset [...] 01/20/20 progress on 2020-01 PROGRESS HNO ID: [id number] Normal 01-16-2020 [facility] Author: Isabel Mata ([id number]) Service: ? Author Type: Physician Admissions Director Type: Progress Notes Filed: 01/16/2020 1:43 PM [...] She c/o of daily. Attempted to call [facility] who had 1 visit with [...] testing. Recommend that she discuss with her ict account manager. In mean time will order stress testing [...] on 2020-01-16 MORENA Telephone ([facility]WS) Normal 01-16-2020 [place] [facility] SALLY MCGREGOR ([id number]) 1980 [facility] Time Provider Department ([id number]) 01/16/20 ISABEL ARIAS) [facility]A During your visit [...] and/or ibuprofen for pain. Follow-up with her [facility] care physician within the next 3 to [...] Chest pain This note was generated with Visualant dictation software. It m ay contain incorrect [...] (METRONIDAZOLE HCL) 03/11/2010 12 - Shortness of [place] th IBUPROFEN 06/18/2016 8 - GI Upset [...] Encounter Status:Closed by ISABEL WARE on [facility]/16/20 [facility] Normal 01-16-2020 [place] [facility] SALLY MCGREGOR ([id number]) 1980 [facility] Time Provider Department (75199) 01/16/20 ISABEL ARIAS) RAMA During your visit today, we recorded the following informati on about you: Sallie Benitez LPN 01/16/2020 1:47 PM Addendum Sallie Benitez LPN 01/16/2020 1:47 PM Addendum Allergies As of Date: 01/16/2020 Noted Allergy Reaction ASA (SALICYLATES) 01/27/2011 14 - Other: See Comments Comments: ulcers CONTRAST DYE (IODINE) 05/17/2008 12 - Shortness of Breath FLAGYL (METRONIDAZOLE HCL) 03/11/2010 12 - Shortness of [place] th IBUPROFEN 06/18/2016 8 - GI Upset [...] on 2020-01-11 CNPN Telephone (FAMPWS) Normal 01-11-2020 [place] [facility] SALLY MCGREGOR ([id number]) 1980 [place] Date Time Provider Department ([id number]) 01/11/20 MARCELINO MEJIA During your visit today, [...] (METRONIDAZOLE HCL) 03/11/2010 12 - Shortness of [place] th IBUPROFEN 06/18/2016 8 - GI Upset PENICILLINS 12/07/2009 2 - Rash PREDNISONE 06/18/2016 14 - Other: See Comments Comments: makes agitated and mean Date Reviewed: 01/02/2020 Reviewed by: Ashley Lehman Ma - Fully Assessed Reason for Visit: Patient Question [5121] Reason For Visit History Recorded Prescriptions as [...] on 2020-01-09 CNPN Telephone ([facility]WS) Normal 01-09-2020 [place] [facility] SALLY MCGREGOR ([id number]) 1980 [facility] Date Time Provider Department (51525) 01/09/20 ISABEL ARIAS) [facility] During your visit today, we recorded [...] when taken with s eroquel is worsening LINOTYPER depression. See if she is willing to [...] by ISABEL WARE on 01/09/20 CNPN Telephone ([facility]) Normal 01-09-2020 [place] [facility] SALLY MCGREGOR ([id number]) 1980 [facility] Date Time Provider Department (02127) 01/09/20 MARCELINO MEJIA During your visit today, [...] she called because she's not really thinking [facility]. Marcelino Mejia MD 01/09/2020 1:31 PM [...] flexeril. Monica t says she cannot take [place] because she is on ok Seroquel and [...] dentist and she said no dentist in [facility] can see her because of her insurance . She tried [place] because they accepted her insurance but they [...] seen by ER or UC, then at [facility] they can see/check for signs of [...] she has called every dentist office in [place] and now [place] and no one takes her insurance. She said she called her insurance and they told her the only one was the one in [place]. I told her if her infection is that bad she needs to go back to ER for further evaluation. Patient then just keep saying I have no way of getting there; no family can take her; she has no money to pay to get there. Patient ended call. I did call Dr. Evans's office oral surgeon [phone] and they are open from 8-3 after day to see patient's and [facility]. They were currently closed but wanting to find out if they accept her insurance. ISABEL ARIAS PA-C 01/10/2020 7:18 AM Signed Noted. Allergies As of Date: 01/09/2020 Noted Allergy Reaction ASA (SALICYLATES) 01/27/2011 14 - Other: See Comments Comments: ulcers CONTRAST DYE (IODINE) 05/17/2008 12 - Shortness of Breath FLAGYL (METRONIDAZOLE HCL) 03/11/2010 12 - Shortness of [place] th IBUPROFEN 06/18/2016 8 - GI Upset [...] * * *Final Report* * * Normal [facility] AP/LAT DATE OF EXAM: Jan 06 2020 12:58PM [place] ([id number]) WOX 5262 - XR THORACIC 2V AP/LAT / PROCEDURE REASON: Fall, initial encounter * * * * Physician Interpretation * * * * EXAM TITLE: XR THORACIC 2V AP/LAT DATE: 01/06/2020 COMPARISON: None. CLINICAL INDICATION/HISTORY: Back pain status post fall in [facility]. TECHNIQUE: AP and lateral views of the thoracic spine are pr esented. FINDINGS: No fractures or subluxations are noted. The disc spaces are well preserved. There is no paraspinal mass or delon destructive process. IMPRESSION: Negative thoracic spine. Concrete Finisher: PSCB Transcribe Date/Time: Jan 06 2020 1:02P Dictated by : NIDA VILLALOBOS MD This examination was interpreted and the report reviewed and electronically signed by: NIDA VILLALOBOS MD on Jan 06 2020 1:07PM EST [id number] xr cervical 3v ap/lat/odon on 2020-01-06 XR CERVICAL 3V * * *Final Report* * * Normal [facility] AP/LAT/ODON DATE OF EXAM: Jan 06 2020 12:58PM [place] WOX 5309 - XR CERVICAL 3V AP/LAT/ODON / 3 (37178) PROCEDURE REASON: Fall, initial encounter * * [...] tissues are normal. IMPRESSION: Negative cervical spine. Concrete Finisher: PSCB Transcribe Date/Time: Jan 06 2020 1:00P Dictated by : NIDA VILLALOBOS MD This examination was interpreted and the report reviewed and electronically signed by: NIDA VILLALOBOS MD on Jan 06 2020 1:04PM EST [id number] progress on 2019-12 PROGRESS HNO ID: [id number] Normal 01-06-2020 [facility] Author: Vianey Sanchez (Tech) [place] ([id number]) Service: ? Author Type: Polishing Machine Operator Type: Progress Notes Filed: 01/06/2020 12:58 PM [...] 12:43 PM cnpn on 2020-01-06 [facility] Normal 01-06-2020 [place] [facility] SALLY MCGREGOR ([id number]) 1980 [facility] Date Time Provider Department (51060) 01/06/20 MARCELINO MEJIA During your visit today, we recorded the following informati on about you: Deepa Salvador, SIDEROGRAPHIST, SIDEROGRAPHIST 01/06/2020 11:41 AM Signed Pt calls states fell a day ago and went to [facility] they gave h er 10 vicodin, 20 [...] 01/06/2020 12:09 PM Signed Patient notified Branden Sanders Ma Allergies As of Date: 01/06/2020 Noted [...] encounter [W19.XXXA] Order(s):XR THORACIC LIMITED 2V AP/LAT [3551175] Order #: [id number] FUTURE XR CERV INJURY 3V AP/LAT/ODON [[id number]] Order #: [id number] FUTURE Prescriptions as of 01/06/2020 Sig: SERTRALINE [...] Status:Closed by BRANDEN SANDERS MA on 01/06/20 [facility] Normal 01-06-2020 [place] [facility] SALLY MCGREGOR ([id number]) 1980 [facility] Date Time Provider Department (08231) 01/06/20 MARCELINO MEJIA [facility] During your visit today, we recorded [...] (METRONIDAZOLE HCL) 03/11/2010 12 - Shortness of [place] th IBUPROFEN 06/18/2016 8 - GI Upset [...] 01/06/20 progress on 2019-12 PROGRESS HNO ID: [id number] Normal 01-05-2020 [facility] Author: Isabel Romero) Hugo Mata ([id number]) Service: ? Author Type: Physician Admissions Director Type: Progress Notes Filed: 01/05/2020 8:07 AM [...] to cancel due to no r kostas. [facility] has appointment rescheduled on january 19. States [...] minutes progress on 2019-12 PROGRESS HNO ID: [id number] Normal 01-02-2020 [facility] Author: Marie Mary) [facility] ([id number]) Service: ? Author Type: Nurse Practitioner Type: [...] Benign liver cyst 05/24/2010 CT scan at [facility] 11/2009 and 04/2010 showe 4 mm increase in size . No pain. No elevated LFTs on 03/11/2010. - Calculus of kidney 05/17/[address] Nicolas: Hospitalized age 20, and again later -- no procedures so far ([facility], 1995 [facility]) - Dysmenorrhea - Impaired fasting glucose 05/17/2008 [...] Approx. 3 cigarettes daily-1 pack every w [place] Substance Use Topics - Alcohol use: Yes [...] 2020-01-02 CNOV Office Visit ([facility]) Normal 01-02-20 [place] SALLY Martinez ([id number]) 1980 F [place] Date Time Provider Department ([id number]) 01/02/20 2:45 PM MARIE SANTAMARIA (JAKI) [facility] [...] Benign liver cyst 05/24/2010 CT scan at [facility] 11/2009 and 04/2010 showe 4 mm increase in size . No pain. No elevated LFTs on 03/11/2010. - Calculus of kidney 05/17/[address] Nicolas: Hospitalized age 20, a nd again later -- no procedures so far ([facility], most, 1995 [facility]) - Dysmenorrhea - Impaired fasting glucose 05/17/2008 [...] Approx. 3 cigarettes daily-1 pack every w rosebud Substance Use Topics - Alcohol use: Yes [...] MG CAPSULE Agrees to plan Marie Santamaria APRN.G[employer]OVE SERVICER HELPER Referring Provider: SELF [[id number]] Allergies As of Date: 01/02/2020 Noted Allergy Reaction ASA (SALICYLATES) 01/27/2011 14 - Other: See Comments Comments: ulcers CONTRAST DYE (IODINE) 05/17/2008 12 - Shortness of Breath FLAGYL (METRONIDAZOLE HCL) 03/11/2010 12 - Shortness of [place] th IBUPROFEN 06/18/2016 8 - GI Upset [...] SANTAMARIA CNP on 01/02/20 cnpn on 2019-12-23 [facility]) Normal 12-23-2019 [place] [facility] SALLY MCGREGOR ([id number]) 1980 [facility] Date Time Provider Department ([id number]) 12/23/19 [facility]AS[facility] During your visit today, we recorded [...] not helping cough. Please advise and call [phone]. WENDI ARIAS PA-C 12/23/2019 1:02 PM Signed [...] * *Final Report* * * Normal 12-21 [facility] FRONTAL/LAT DATE OF EXAM: Dec 22 2019 9:28AM [place] WOX 5291 - XR CHEST 2V FRONTAL/LAT / ([id number]) PROCEDURE REASON: multiple diagnoses * * * [...] clips noted. IMPRESSION: No acute radiographic abnormality. Concrete Finisher: PSCB Transcribe Date/Time: Dec 22 2019 9:29A Dictated by : NIDA VILLALOBOS MD This examination was interpreted and the report reviewed and electronically signed by: NIDA VILLALOBOS MD on Dec 22 2019 9:51AM EST [id number] progress on 2019-12 PROGRESS HNO ID: [id number] Normal 12-22-2019 [facility] Author: Madeline Joyner (Rt) Vianey Luo Mata ([id number]) Service: ? Author Type: Polishing Machine Operator Type: Progress Notes Filed: 12/22/2019 9:28 AM [...] 22, 2019 9:18 AM cnpn on 2019-12-22 [facility]) Normal 12-22-2019 [place] [facility] SALLY MCGREGOR ([id number]) 1980 [facility] Date Time Provider Department ([id number]) 12/22/19 ISABEL ARIAS) RAMA During your visit today, we recorded the following informati on about you: ISABEL ARIAS PA-C 12/22/2019 9:56 AM Signed Let patient know that xray is negative. Recommend cont inuing as we discussed yesterday. Isabel Arias PA-C Ashley Mcfarland Woods Superintendent 12/22/2019 10:42 AM Signed Patient notified and verbalized understanding Ashley Mcfarland Woods Superintendent Allergies As of Date: 12/22/2019 Noted Allergy Reaction ASA (SALICYLATES) 01/27/2011 14 - Other: See Comments Comments: ulcers CONTRAST DYE (IODINE) 05/17/2008 12 - Shortness of Breath FLAGYL (METRONIDAZOLE HCL) 03/11/2010 12 - Shortness of [place] IBUPROFEN 06/18/2016 8 - GI Upset [...] 12/22/19 progress on 2019-12 PROGRESS HNO ID: [id number] Normal 12-21-2019 [facility] Author: Isabel Romero) Hugo Mata ([id number]) Service: ? Author Type: Physician Admissions Director Type: Progress Notes Filed: 12/21/2019 12:48 PM Note Text: DISTANCE HEALTH VISIT This Team Access Model visit is a phone encounter. It requir ed patient-provider interaction for the medical decision making as documented below. No video was used for evaluation of this patient. Patient consents to visit. Patient location: [place] Sally Mcgregor is a 39 year old [...] SYSTEMS: As noted in HPI PHYSICAL EXAMINATION: [facility] 08/10/2006 Deferred physical exam as visit was [...] on 2019-12-15 CNPN Telephone (FAMPWS) Normal 12-15-2019 [facility] SALLY MCGREGOR ([id number]) 1980 [facility] Date Time Provider Department ([id number]) 12/15/19 ISABEL ARIAS (MAYA) RAMA During your [...] and still makes her nauseated. Patient uses [facility] her [facility]. Please advise ISABEL ARIAS [...] on 2019-12-14 CNPN Telephone (INTMWS) Normal 12-14-2019 [facility] SALLY MCGREGOR ([id number]) 1980 [place] Date Time Provider Department (55164) 12/14/19 ISABEL ARIAS) INTMWS During your visit today, we recorded the following informati on about you: Gale Fuentes LPN 12/14/2019 10:15 AM Signed Patient took 1 dose of Robitussin AC, di d help suppress cough but developed an itchy/rash. Asking if something else can be called in to pha acy. Patient uses [facility]. Please notify Patient. Gale ARIAS PA-C 12/14/2019 10:32 AM Signed I will send in alysha alatorre es and otherwise she can take OTC [...] on 12/14/19 CNPN Telephone (FAMPWS) Normal 12-14-2019 [facility] SALLY MCGREGOR ([id number]) 1980 [facility] Date Time Provider Department (10053) 12/14/19 ISABEL ARIAS) RAMA During your visit [...] 12/14/19 progress on 2019-11 PROGRESS HNO ID: [id number] Normal 12-13-2019 [facility] Author: Isabel Romero) Hugo Mata ([id number]) Service: ? Author Type: Physician Admissions Director Type: Progress Notes Filed: 12/13/2019 10:36 AM [...] Benign liver cyst 05/24/2010 CT scan at [facility] 11/2009 and 04/2010 showe 4 mm increase in size . No pain. No elevated LFTs on 03/11/2010. - Calculus of kidney 05/17/[address] Nicolas: Hospitalized age 20, and again later -- no procedures so far ([facility], [facility], 1995 [facility]) - Dysmenorrhea - Impaired fasting glucose 05/17/2008 [...] Approx. 3 cigarettes daily-1 pack every w rosebud Substance Use Topics - Alcohol use: Yes [...] 10 MG-GUAIFENESIN 100 MG/5 ML ORAL LIQUID SIABEL ARIAS PA-C Time with patient was 11 min This patient encounter involved the screening or treatment o f novel coronavirus infection (COVID-19). emergency report on 2019-11-26 EMERGENCY REPORT [facility] Normal 11-25 [facility] EMERGENCY ROOM REPORT ([id number]) NAME ACCOUNT SEX AGE ADMIT DISCHARGE PT MED. RECORD# NUMBER DATE DATE TYPE SAM, [id number] F 39 11/24/19 11/25/19 3 SALLY [id number] ROOM: ER DATE OF : 1980 DICTATING [...] for review of her constipation regimen at [facility]. She verbalized understanding of the informa tion given and agreed to plan. She was discharged in stable condition. Dictated By: Ana Alcantar MD 11/25/19 05:37 JOB #: [id number] Transcribed By: dotty 11/25/19 22:11 Electronically signed by: Jennifer Perez MD 11/25/19 22:39 Page 2 of 2 SALLY MCGREGOR Emergency Room Report urinalysis with microscopy on 2019-11-25 Amorphous NONE Normal 11-25-2019 [facility] (31752) Comment: Performed By: #### [id number] ## ## [facility],[address] [place] [address] 39886 Bacteria LM.HPF (Urine sed) 4+ Normal [facility] [#/Area] [facility] ( 75322) Comment: Performed By: #### [id number] ## ## [facility],[address] [place] [address] 35130 Bilirubin [Mass/Vol] NEG NORMAL: NEGATIVE mg/dL Normal [facility] (40863) Comment: Performed By: #### [id number] ## ## [facility],[address] [place] [address] 26042 Blood 10 NORMAL: NEGATIVE Abnormal 11-25-2019 [facility] (07290) Comment: Performed By: #### [id number] ## ## [facility],[address] [place], [place] [id number] Casts LM.LPF (Urine sed) NONE Normal 11-24 [facility] [#/Area] [facility] ( 04259) Comment: Performed By: #### [id number] ## ## [facility],[address] [place] [address] 53829 Clarity (U) sl.cloudy NORMAL: CLEAR Normal 11-25-2019 [facility] ( 44367) Comment: Performed By: #### [id number] ## ## [facility],[address] [place] [address] 91726 Color (U) p.yel NORMAL: YELLOW Normal 11-25-2019 [facility] (90297) Comment: Performed By: #### [id number] ## ## [facility],[address] [place] [address] 77787 Crystals LM Nom (Urine sed) NONE Normal [facility] ( 32188) Comment: Performed By: #### [id number] ## ## [facility],[address] [place] [address] 27782 Epi Cells MANY Normal 11-25-2019 [facility] (11369) Comment: Performed By: #### [id number] ## ## [facility] [facility] [address] Glucose [Mass/Vol] NORM NORMAL: NORMAL Normal 2019 [facility] ( 34089) Comment: Performed By: #### [id number] ## ## [facility],[address] [place] [address] 06439 Ketone NEG NORMAL: NEGATIVE Normal 11-25-2019 [facility] (88103) Comment: Performed By: #### [id number] ## ## [facility],[address] [place] [address] 26920 Mucous NONE Normal 11-25-2019 [facility] (36098) Comment: Performed By: #### [id number] ## ## [facility],[address] [place] [address] 34230 Nitrite Ql (U) NEG NORMAL: NEGATIVE Normal 11-25-19 20 [facility] ( 47046) Comment: Performed By: #### [id number] ## ## [facility],[address] [place] [address] 91884 pH (Bld) 5 NORMAL: 5.0-8.0 Normal 11-25-2019 [facility] (72981) Comment: Performed By: #### [id number] ## ## [facility],[address] [place] [address] 39161 Protein (U) NEG NORMAL: NEGATIVE mg/dL Normal 11-25-2019 [facility] [Mass/Vol] [facility] (80512) Comment: Performed By: #### [id number] ## ## [facility] [place] [address] Rbc 0-5 0-3 / hpf Normal 11-25-2019 [facility] (58137) Comment: Performed By: #### [id number] ## ## [facility],[address] [place], [place] [address] Sp [place] 1.010 NORMAL: 1.010-1.030 Normal 0 [facility] ( 79504) Comment: Performed By: #### [id number] ## ## [facility],[address] [place] [address] Specimen type Nom (Spec) UNSPECIFIED Normal [facility] ( 34323) Comment: Performed By: #### [id number] ## ## [facility],[address] [place], [place] [address] URINALYSIS WITH MICROSCOPY Normal [facility] (15796) Comment: Result Comment: URINALYSIS Performed By: #### [id number] ## ## [facility],[address] [place] [address] Urobilinog NORM NORMAL: NORMAL Normal 11-25-2019 [facility] (45079) Comment: Performed By: #### [id number] ## ## [facility],[address] [place], [place] [address] Wbc 1-5 0-5 / hpf Normal 11-25-2019 [facility] (71861) Comment: Performed By: #### [id number] ## ## [facility],[address] [place], [place] [address] WBC (Bld) [#/Vol] 25 NORMAL: NEGATIVE Abnormal 11-24 [facility] ( 22255) Comment: Result Comment: URINE MICROS COPIC Performed By: #### [id number] ## ## [facility],[address] [place] [address] 82796 Yeast LM Ql (Urine sed) NONE Normal 2019 [facility] (08932) Comment: Performed By: #### [id number] ## ## [facility],[address] [place] [address] 56504 lipase on 2019-11-13 3 Lipase [Catalytic 34.0 18.0 - 51.0 U/L Normal 11-25-2019 [facility] activity/Vol] [facility] (78733) Comment: Performed By: #### [id number] ## ## [facility],[address] [facility] 86006 lactate on Lactate [Moles/Vol] 0.9 0.5 - 2.0 mmol/L Normal 11-25-2019 [facility] ( 47983) Comment: Performed By: #### [id number] ## ## [facility],[address] [place] [address] abdomen/pelvis wo on 2019-11-25 CT ABDOMEN/PELVIS [facility] Normal 0 11-25-2019 [facility] [address] [place], [place] [id number] (22941) Patient: SALLY MCGREGOR Phone#: : 1980 Age: 39 Gender: F Pt. Type: ER Account: [id number] Location: [facility] Ordering: DR. ANA ALCANTAR Exam Date: 11/25/2019/0:04 Family Phys: ISABEL ARIAS Charge Code: [id number] Physician: [facility] Order #: [id number] DLP Dose#: PROCEDURE: CT ABDOMEN/PELVIS WITHOUT CONTRAST COMPARISON: [facility], CT, ABDOMEN/PELVIS W/O CON, 03/22/2019, 16:41. INDICATIONS: Abdominal Pain TECHNIQUE: CT images were created without intravenous contra st. All CT scans at this [facility] y use dose modulation, iterative reconstruction, and/or [...] 39 Gender: F Pt. Type: ER Account: [id number] Location: 052 Ordering: DR. ANA ALCANTAR Exam Date: 11/25/2019/0:04 Family Phys: ISABEL ARIAS Charge Code: [id number] Physician: [facility] Order #: [id number] DLP Dose#: ABDOMINAL WALL: There is a [...] on 2019-11-25 CNPN Telephone (FAMPWS) Normal 11-25-2019 [facility] TOSHIASALLY TORRES ([id number]) 1980 [place] Date Time Provider Department (23371) 11/25/19 [facility]AS[facility] During your visit today, we recorded the [...] Age - Reported 39 years Normal 11-25-2019 [facility] (06602) Comment: Performed By: #### [id number] ## ## [facility],[address] [place] [address] 45783 Albumin [Mass/Vol] 4.5 3.4 - 4.8 g/dL Normal 11-25-2019 [facility] ( 57129) Comment: Performed By: #### [id number] ## ## [facility],[address] [place] [address] 91457 Albumin/Globulin [Mass 1.3 0.9 - 1.6 {ratio} Normal [address] [place] [address] (04652) Comment: Performed By: #### [id number] ## ## [facility],[address] [place] [address] 62983 ALK PHOS 93 38 - 126 U/L Normal 11-25-2019 [facility] (17137) Comment: Performed By: #### [id number] ## ## [facility],[address] [place] [address] 26290 ALT/SGPT 10 8 - 35 U/L Normal 11-25-2019 [facility] (48470) Comment: Performed By: #### 714025 ## ## [facility],[address] [place] [address] 76568 Anion gap [Moles/Vol] 13 10 - 20 mmol/L Normal 11-25-19 [facility] ( 78149) Comment: Performed By: #### [id number] ## ## [facility],[address] [place] [address] 83881 AST/SGOT 9 13 - 39 U/L Low 11-25-2019 [facility] (99759) Comment: Performed By: #### [id number] ## ## [facility] [address] B/C RATIO 17 0 - 30 ratio Normal 11-25-2019 [facility] (90508) Comment: Performed By: #### [id number] ## ## [facility] [facility] 9[address]60 Bilirubin [Mass/Vol] 0.4 0.0 - 1.5 mg/dl Normal 0 [facility] ( 51326) Comment: Performed By: #### [id number] ## ## [facility],[address] [place] [address] 68802 Calcium [Mass/Vol] 9.9 8.6 - 10.2 mg/dl Normal 11-25-2019 [facility] ( 61224) Comment: Performed By: #### [id number] ## ## [facility] [facility] 79143 Chloride [Moles/Vol] 103 98 - 107 mmol/L Normal 0 [facility] ( 13468) Comment: Performed By: #### [id number] ## ## [facility] [place] [address] CO2 [Moles/Vol] 24.9 21.0 - 31.0 mmol/L Normal 11-25-2019 [facility] ( 24397) Comment: Performed By: #### [id number] ## ## [facility],[address] [place] [address] 31811 Creatinine [Mass/Vol] 1.0 0.6 - 1.2 mg/dl Normal 11-25-19 20 [facility] ( 89837) Comment: Performed By: #### [id number] ## ## [facility],[address] [place] [address] 85680 GFR/1.73 sq M >60 60 - 999 mL/min/{1.73_m2} Normal 0 [facility] predicted among [facility] non-blacks MDRD (000 00) (S/P/Bld) [Vol rate/Area] Comment: Performed By: #### [id number] ## ## [facility],[address] [place] [address] 19628 Result Comment: ACCORDING TO THE NATIONAL KIDNEY DISEASE EDUCATION PROGRAM(NKDE), A NORMAL eGFR IS A VALUE GREATER THAN OR E QUAL TO 60 ML/MIN/1.73 SQ METERS. CHRONIC KIDNEY DISEASE: <60m L/MIN/1.73 SQ METERS KIDNEY FAILURE: <15mL/MIN/1. 73 SQ METERS THIS TEST SHOULD ONLY BE USE D FOR PATIENTS 18 YEARS OF AGE AND OLDER. GFR/1.73 sq M predicted among Normal 11-25-2019 [facility] non-blacks MDRD (S/P/Bld) [Vol Hospital (13425) rate/Area] Comment: Result Comment: COMPREHENSIV E METABOLIC PANEL Performed By: #### [id number] ## ## [facility],[address] [place] [address] 78279 Globulin (S) [Mass/Vol] 3.5 1.5 - 3.8 G/DL Normal 2019 [facility] ( 64492) Comment: Performed By: #### [id number] ## ## [facility],[address] [place] [address] 52683 Glucose [Mass/Vol] 123 74 - 106 mg/dl High 11-25-2019 [facility] (05621) Comment: Performed By: #### [id number] ## ## [facility],[address] [place] [address] 73389 Potassium [Moles/Vol] 3.6 3.5 - 5.1 mmol/L Normal 11-25-19 20 [facility] ( 16207) Comment: Performed By: #### [id number] ## ## [facility],[address] [place] [address] 94800 Protein [Mass/Vol] 8.0 6.4 - 8.3 g/dl Normal 11-25-2019 [facility] ( 12866) Comment: Performed By: #### [id number] ## ## [facility],[address] [place] [address] 44599 Sodium [Moles/Vol] 137 136 - 145 mmol/l Normal 11-25-2019 [facility] ( 07037) Comment: Performed By: #### [id number] ## ## [facility],[address] [place] [address] 19099 Urea nitrogen [Mass/Vol] 17 6 - 20 mg/dl Normal 11-24 [facility] ( 57276) Comment: Performed By: #### [id number] ## ## [facility],[address] [place] [address] 28176 chest 2 views on 01-12-12 CHEST 2 VIEWS [facility] Normal 11-25-19 [facility] [address] [place], [place] [id number] (32950) Patient: SALLY MCGREGOR Phone#: : 1980 Age: 39 Gender: F Pt. Type: ER Account: [id number] Location: [facility] Ordering: DR. ANA ALCANTAR Exam Date: 11/25/2019/0:08 Family Phys: ISABEL ARIAS Charge Code: [id number] Physician: [facility] Order #: [id number] DLP Dose#: PROCEDURE: X-RAY CHEST 2 VIEWS COMPARISON: [facility], XR, CHEST PA/LAT, 05/12/2017, 16:14. [...] on 11-24 CELL COUNT 100 Normal 11-25-2019 [facility] (39280) Comment: Performed By: #### [id number] ## ## [facility],[address] [place] [address] 28577 EO 1.0 0.0 - 4.0 % Normal 11-25-2019 [facility] (98376) Comment: Performed By: #### 635128 ## ## [facility],[address] [place] [address] 80631 SEGS 59 50 - 70 % Normal 11-25-2019 [facility] (94269) Comment: Performed By: #### 513555 ## ## [facility],[address] [place] [address] 99880 CBC + DIFF Normal 11-25-2019 [facility] (79231) Comment: Result Comment: CBC-COMPLETE BLOOD COUNT Performed By: #### [id number] ## ## [facility],[address] [place] [address] 15032 Erythrocyte distribution 13.4 12.0 - 15.6 % Normal [facility] (RBC) [Ratio] [facility] (53809) Comment: Performed By: #### 636262 ## ## [facility],[address] [place] [address] 12968 Hematocrit (Bld) [Volume 32.5 34.0 - 46.0 % [facility]] [facility] ( 10473) Comment: Performed By: #### 056066 ## ## [facility],[address] [place] [address] 82630 Hemoglobin (Bld) 11.4 12.0 - 16.0 g/dl Low 11-25-2019 [facility] [Mass/Vol] Hospital (00946) Comment: Performed By: #### [id number] ## ## [facility],[address] [place] [address] 34810 Lymphocytes/100 WBC (Bld) 40 20 - 40 % Normal 11-12 [facility] ( 87221) Comment: Performed By: #### [id number] ## ## [facility],[address] [place] [address] 99430 MANUAL DIFF SEE BELOW Normal 11-25-2019 [facility] (41541) Comment: Performed By: #### [id number] ## ## [facility],[address] [place] [address] 59319 MCH (RBC) [Entitic mass] 31 27 - 33 pg Normal 11-24 [facility] ( 55264) Comment: Performed By: #### [id number] ## ## [facility],[address] [place] [address] 85715 MCHC (RBC) [Mass/Vol] 35 32 - 36 X10 3 Normal 11-25-19 20 [facility] ( 74017) Comment: Performed By: #### [id number] ## ## [facility],[address] [place] [address] 47798 MCV (RBC) [Entitic vol] 88 80 - 99 fl Normal 2019 [facility] ( 25384) Comment: Performed By: #### 122704 ## ## [facility],[address] [place] [address] 73791 Morphology Adrian (Bld) REVIEWED Normal 0 [facility] [Interp] [facility] ( 62009) Comment: Performed By: #### 626558 ## ## [facility],[address] [place] [address] 30533 Platelet mean volume 9.1 6.6 - 10.5 fl Normal 11-25-19 20 [facility] (Bld) [Entitic vol] [facility] (82382) Comment: Result Comment: AUTOMATED DI FFERENTIAL Performed By: #### [id number] ## ## [facility],[address] [place] [address] 81039 Platelets (Bld) 268 150 - 450 x10EE3/UL Normal 11-25-2019 [facility] [#/Vol] [facility] (67399) Comment: Performed By: #### 350524 ## ## [facility],[address] [place] [address] 28528 RBC (Bld) [#/Vol] 3.69 4.10 - 5.30 x 10EE6/UL Low 0 [facility] ( 54754) Comment: Performed By: #### 349132 ## ## [facility],[address] [place] [address] 88401 WBC (Bld) [#/Vol] 11.4 4.5 - 10.8 x 10EE3/UL High 11-25-2019 [facility] ( 98499) Comment: Performed By: #### [id number] ## ## [facility],[address] [place] [address] 91701 tsh on 2019-11-24 TSH Qn 3.920 0.270-4.200 uU/mL Normal 11-24-2019 [facility] (45780) Comment: Result Comment: If the patie nt [...] et al. 2017 Guide lines of the [place] [employer] for the Diagnosis and Management of Thyroid Disease during and the . Thyroid, 2017:27:3:315-389. Performed By: #### TSH, CBCD IF, CMP ####[facility] [address] [place], [place] [address] [phone] troponin t on 11-23 Troponin T.cardiac Test sent to 0.000-0.029 Normal 2019 [facility] [Mass/Vol] [facility] (41205) [facility]. Comment: Result Comment: Account Cred ited HIDE progress on 2019-11 PROGRESS HNO ID: [id number] Normal 11-24-2019 [facility] Author: Jay) [place] ([id number]) Service: ? Author Type: Physician Admissions Director Type: Progress Notes Filed: 11/24/2019 9:33 AM [...] insurance and was forced to see a [facility] psychiatrist who isn't helping her. Only spoke with her twice. States she is in a lot of pain and trouble sleeping. States gabapentin used to work for her but when she lost her insurance. PAST MEDICAL HISTORY Diagnosis Date - Allergic rhinitis, cause unspecified 05/17/2008 Spring and summer - Benign liver cyst 05/24/2010 CT scan at [facility] 11/2009 and 04/2010 showe 4 mm increase in size . No pain. No elevated LFTs on 03/11/2010. - Calculus of kidney 05/17/[address] Nicolas: Hospitalized age 20, and again later -- no procedures so far ([facility] [place] [facility], 1995 [facility]) - Dysmenorrhea - Impaired fasting glucose 05/17/2008 [...] Approx. 3 cigarettes daily-1 pack every w rosebud Substance Use Topics - Alcohol use: Yes [...] dimer on D dimer Test sent to [facility] <500 Normal 0 [facility]. (25243) Comment: Result Comment: Account Cred ited HIDE comp metabolic panel on 2019-11-24 Albumin [Mass/Vol] 4.4 3.9-4.9 g/dL Normal 11-24-2019 [facility] (43119) Comment: Performed By: #### TSH, CBCD IF, CMP ####[facility] [address] [place] [address] [phone] ALP [Catalytic activity/Vol] 105 34-123 U/L Normal 0 11-24-2019 [facility] (14186) Comment: Performed By: #### TSH, CBCD IF, CMP ####[facility] [address] [place] [address] [phone] ALT [Catalytic activity/Vol] 6 7-38 U/L Low 0 11-24-2019 [facility] (57719) Comment: Performed By: #### TSH, CBCD IF, CMP ####[facility] [place] [address] [phone] Anion gap [Moles/Vol] 12 9-18 mmol/L Normal 11-24-19 20 [facility] (92894) Comment: Performed By: #### TSH, CBCD IF, CMP ####[place] [address] [address] [place] [address] [phone] AST [Catalytic activity/Vol] 14 13-35 U/L Normal 0 11-24-2019 [facility] (30410) Comment: Performed By: #### TSH, CBCD IF, CMP ####[place] [address] [phone] Bilirubin [Mass/Vol] 0.4 0.2-1.3 mg/dL Normal 0 [facility] (28291) Comment: Performed By: #### TSH, CBCD IF, CMP ####[place] [address] [address] [place] [address] [phone] Calcium [Mass/Vol] 9.9 8.5-10.2 mg/dL Normal 11-24-2019 [facility] (82060) Comment: Performed By: #### TSH, CBCD IF, CMP ####[facility] [place] [address] [phone] Chloride [Moles/Vol] 101 97-105 mmol/L Normal 0 [facility] (08511) Comment: Performed By: #### TSH, CBCD IF, CMP ####[place] [id number] [place] [address] [phone] CO2 [Moles/Vol] 23 22-30 mmol/L Normal 11-24-2019 [facility] (71878) Comment: Performed By: #### TSH, CBCD IF, CMP ####[facility] [address] [place] [address] [phone] Creatinine [Mass/Vol] 0.93 0.58-0.96 mg/dL Normal 11-24-19 [facility] (96509) Comment: Performed By: #### TSH, CBCD IF, CMP ####[facility] [address] [address] [phone] eGFR- Amer. >60 Normal 11-24-2019 [facility] (83476) Comment: Performed By: #### TSH, CBCD IF, CMP ####[facility] [place] [address] [phone] GFR/1.73 sq M predicted >60 mL/min/{1.73_m2} Normal 11-24-2019 [facility] among non-blacks [facility] (42508) (S/P/Bld) [Vol rate/Area] Comment: Result Comment: eGFR [...] Performed By: #### TSH, CBCD IF, CMP ####[facility] [address] [place] [address] [phone] Glucose [Mass/Vol] 98 74-99 mg/dL Normal 11-24-2019 [facility] (90414) Comment: Result Comment: The [place] Diabetes Association (ADA) provides guidance for cutoff [...] for diagnosis of diabetes. Reference: Standards of [facility] Care in Diabetes 2016, [place] [employer] Association. Diabetes Care. 2016.39(Suppl 1). Performed By: #### TSH, CBCD IF, CMP ####[facility] [place] [address] [phone] Potassium [Moles/Vol] 4.1 3.7-5.1 mmol/L Normal 11-24-19 [facility] (42638) Comment: Performed By: #### TSH, CBCD IF, CMP ####[place] [address] [phone] Protein [Mass/Vol] 7.6 6.3-8.0 g/dL Normal 11-24-2019 [facility] (89825) Comment: Performed By: #### TSH, CBCD IF, CMP ####[place] [id number] [place] [address] [phone] Sodium [Moles/Vol] 136 136-144 mmol/L Normal 11-24-2019 [facility] (64925) Comment: Performed By: #### TSH, CBCD IF, CMP ####[place] [address] [phone] Urea nitrogen [Mass/Vol] 21 7-21 mg/dL Normal 11-23 [facility] (12884) Comment: Performed By: #### TSH, CBCD IF, CMP ####[place] [address] [phone] cnpn on 2019-11-24 CNPN Telephone (FAMPWS) Normal 11-24-2019 [place] [facility] SALLY MCGREGOR ([id number]) 1980 [facility] Time Provider Department (50414) 11/24/19 MARCELINO MEJIA During your visit today, we recorded the following informati on about you: Yvette Huffman RN 11/24/2019 3:23 PM Signed Pt called, verified by name and birthdate. Pt wants to know if provider will fax letter that was written today to for her child support to be addressed. Please advise Yvtete Bruce Ma 11/24/2019 3:33 PM Signed Faxed letter. Spoke with patient and she indicated that she pays support but is currently unemployed and needs to show that she is under doctor care. I did explain to patient that she is onl y under doctor for the [facility] states in the letter. Valente Bruce Ma' Allergies As of Date: 11/24/2019 Noted Allergy Reaction ASA (SALICYLATES) 01/27/2011 14 - Other: See Comments Comments: ulcers CONTRAST DYE (IODINE) 05/17/2008 12 - Shortness of Breath FLAGYL (METRONIDAZOLE HCL) 03/11/2010 12 - Shortness of [place] th IBUPROFEN 06/18/2016 8 - GI Upset [...] on 11/24/19 CNPN Telephone (FAMPWS) Normal 11-24-2019 [place] [facility] SALLY MCGREGOR ([id number]) 1980 [facility] Date Time Provider Department (64856) 11/24/19 [facility] ARIAS) [facility] During your visit today, we recorded the following informati on about you: Lorenzo Vu 11/24/2019 12:40 PM Signed 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 If so please fax to [employer] fax [phone]. ISABEL ARIAS PA-C 11/24/2019 1:00 PM Signed Letter ready. MAYA Bowser Ma 11/24/2019 3:11 PM Signed Faxed letter. refaxed Dr. Les ambrose. Valente Bruce Ma Allergies As of Date: [...] on 11/24/19 CNPN Telephone (FAMPWS) Normal 11-24-2019 [place] [facility] SALLY MCGREGOR ([id number]) 1980 [facility] Date Time Provider Department (31337) 11/24/19 MARCELINO MEJIA [facility] During your visit today, we recorded the following informati on about you: Yvette Huffman RN 11/24/2019 12:00 PM Signed Aidee from [facility] lab called, verified pt by name and [...] (METRONIDAZOLE HCL) 03/11/2010 12 - Shortness of [place] th IBUPROFEN 06/18/2016 8 - GI Upset [...] 2019-11-24 CNOV Office Visit (FAMPWS) Normal 11-24-19 [place] [facility] SALLY MCGREGOR ([id number]) 1980 [facility] Date Time Provider Department (86381) 11/24/19 9:20 AM JAY ARIAS) FAMPWS During [...] Benign liver cyst 05/24/2010 CT scan at [facility] 11/2009 and 04/2010 showe 4 mm increase in size . No pain. No elevated LFTs on 03/11/2010. - Calculus of kidney 05/17/[address] Nicolas: Hospitalized age 20, a nd again later -- no procedures so far ([facility], [facility], 1995 [facility]) - Dysmenorrhea - Impaired fasting glucose 05/17/2008 [...] Approx. 3 cigarettes daily-1 pack every w rosebud Substance Use Topics - Alcohol use: Yes [...] [facility] [[id number]] Order #: [id number]: 1 levoFLOXacin (LEVAQUIN) 500 mg tabletTake 1 [...] Abs Baso 0.06 <0.11 k/uL Normal 11-24-2019 [facility] (13450) Comment: Performed By: #### TSH, CBCD IF, CMP ####[place] [id number] [address] [phone] Abs Bay 0.43 <0.87 k/uL Normal 11-24-2019 [facility] (08645) Comment: Performed By: #### TSH, CBCD IF, CMP ####[place] [address] [place] [address] [phone] Abs Neut 5.59 1.45-7.50 k/uL Normal 11-24-2019 [facility] (29499) Comment: Performed By: #### TSH, CBCD IF, CMP ####[place] [address] [place] [address] [phone] Absolute nRBC <0.01 <0.01 Normal 11-24-2019 [facility] (94699) Comment: Performed By: #### TSH, CBCD IF, CMP ####[place] [address] [place] [address] [phone] Basophils/100 WBC (Bld) 0.7 % Normal 2019 [facility] (62111) Comment: Performed By: #### TSH, CBCD IF, CMP ####[place] [address] [place] [address] [phone] DTYPE Auto Diff Normal 11-24-2019 [facility] (28406) Comment: Performed By: #### TSH, CBCD IF, CMP ####[place] [address] [place] [address] [phone] Eosinophils (Bld) [#/Vol] 0.34 <0.46 k/uL Normal 11-12 [facility] (61304) Comment: Performed By: #### TSH, CBCD IF, CMP ####[place] [address] [place] [address] [phone] Eosinophils/100 WBC (Bld) 3.7 % Normal 11-12 [facility] (36899) Comment: Performed By: #### TSH, CBCD IF, CMP ####[facility] [place] [address] Erythrocyte distribution 13.1 11.5-15.0 % Normal 11-23 [facility] width (RBC) [Ratio] [place] (17375) Comment: Performed By: #### TSH, CBCD IF, CMP ####[facility] [address] [place] [address] [phone] Hematocrit (Bld) [Volume 38.1 36.0-46.0 % Normal 11-23 [facility] fraction] [place] (60622) Comment: Performed By: #### TSH, CBCD IF, CMP ####[facility] [place] [address] [phone] Hemoglobin (Bld) 11.7 11.5-15.5 g/dL Normal 11-24-2019 [facility] [Mass/Vol] [place] (30346) Comment: Performed By: #### TSH, CBCD IF, CMP ####[facility] [place] [address] [phone] Lymphocytes (Bld) [#/Vol] 2.69 1.00-4.00 k/uL Normal 11-12 [facility] (83178) Comment: Performed By: #### TSH, CBCD IF, CMP ####[facility] [address] [place] [address] [phone] Lymphocytes/100 WBC (Bld) 29.5 % Normal 11-12 [facility] (13402) Comment: Performed By: #### TSH, CBCD IF, CMP ####[facility] [address] [place] [address] [phone] MCH (RBC) [Entitic mass] 29.3 26.0-34.0 pG Normal 11-23 [facility] (13899) Comment: Performed By: #### TSH, CBCD IF, CMP ####[facility] [place] [address] [phone] MCHC (RBC) [Mass/Vol] 30.7 30.5-36.0 g/dL Normal 11-24-19 [facility] (05788) Comment: Performed By: #### TSH, CBCD IF, CMP ####[place] [address] [place] [address] [phone] MCV (RBC) [Entitic vol] 95.3 80.0-100.0 fL Normal 11-23 [facility] (31343) Comment: Performed By: #### TSH, CBCD IF, CMP ####[place] [address] [place] [address] [phone] Monocytes/100 WBC (Bld) 4.7 % Normal 2019 [facility] (58043) Comment: Performed By: #### TSH, CBCD IF, CMP ####[place] [address] [address] [phone] Neutrophils/100 WBC (Bld) 61.4 % Normal 11-12 [facility] (41484) Comment: Result Comment: Differential confirmed by visual scan of peripheral blood smear slide. Performed By: #### TSH, CBCD IF, CMP ####[place] [address] [place] [address] [phone] NRBCs 0.0 0 /100 WBC Normal 11-24-2019 [facility] (93198) Comment: Performed By: #### TSH, CBCD IF, CMP ####[place] [address] [place] [address] [phone] Platelet mean volume 11.4 9.0-12.7 fL Normal 0 [facility] (Bld) [Entitic vol] [place] (46761) Comment: Performed By: #### TSH, CBCD IF, CMP ####[facility] [place] [address] [phone] Platelets (Bld) [#/Vol] 248 150-400 k/uL Normal 2019 [facility] (53676) Comment: Performed By: #### TSH, CBCD IF, CMP ####[facility] [place] [address] [phone] RBC (Bld) [#/Vol] 4.00 3.90-5.20 m/uL Normal 11-24-2019 [facility] (86535) Comment: Performed By: #### TSH, CBCD IF, CMP ####[place] [address] [place] [address] [phone] WBC (Bld) [#/Vol] 9.11 3.70-11.00 k/uL Normal 11-24-2019 [facility] (57049) Comment: Performed By: #### TSH, CBCD IF, CMP ####[place] [address] [place] [address] [phone] cnpn on 2019-11-21 [facility] Normal 11-21-2019 [place] [facility] SALLY MCGREGOR ([id number]) 1980 [facility] Date Time Provider Department (09380) 11/21/19 MARCELINO [facility]JIA [facility] During your visit today, we recorded [...] Status:Closed by VALENTE BRUCE MA on 11/23/19 [facility]19 [facility] Telephone (FAMPWS) Normal 11-19-2019 [place] [facility] SALLY MCGREGOR ([id number]) 1980 [facility] Date Time Provider Department (57704) 11/19/19 JC FELIX [facility] During your visit today, we recorded [...] 11/21/2019 11:15 AM Signed Pt seen in [facility] ER on 11/19/19. Janneth Zhou, RN, RN [...] (METRONIDAZOLE HCL) 03/11/2010 12 - Shortness of [place] th IBUPROFEN 06/18/2016 8 - GI Upset PENICILLINS 12/07/2009 2 - Rash PREDNISONE 06/18/2016 14 - Other: See Comments Comments: makes agitated and mean Date Reviewed: 11/18/2019 Reviewed by: Valente Bruce Ma - Fully Assessed Reason for Visit: Question [1007] Patient Update [4514] Reason For Visit History Recorded Prescriptions as [...] * *Final Report* * * Normal 11-17 [facility] FRONTAL/LAT DATE OF EXAM: Nov 18 2019 12:48PM [place] WOX 5291 - XR CHEST 2V FRONTAL/LAT / (27312) PROCEDURE REASON: multiple diagnoses * * * [...] tissues: Unremarkable. IMPRESSION: No acute radiographic abnormality. Concrete Finisher: PSCB Transcribe Date/Time: Nov 18 2019 1:01P Dictated by : KORI BLANKENSHIP MD This examination was interpreted and the report reviewed and electronically signed by: KORI BLANKENSHIP MD on Nov 18 2019 1:02PM EST [id number] progress on 2019-11 PROGRESS HNO ID: [id number] Normal 11-18-2019 [facility] Author: Kylee PickardRtVianey Lea [place] ([id number]) Service: ? Author Type: Polishing Machine Operator Type: Progress Notes Filed: 11/18/2019 12:49 PM [...] 18, 2019 12:40 PM PROGRESS HNO ID: [id number] Normal 11-18-2019 [facility] Author: Randi Arias [place] ([id number]) Service: ? Author Type: Physician Admissions Director Type: Progress Notes Filed: 11/18/2019 3:32 PM [...] Benign liver cyst 05/24/2010 CT scan at [facility] 11/2009 and 04/2010 showe 4 mm increase in size . No pain. No elevated LFTs on 03/11/2010. - Calculus of kidney 05/17/[address] Nicolas: Hospitalized age 20, and again later -- no procedures so far ([facility], [place] [facility]) - Dysmenorrhea - Impaired fasting glucose 05/17/2008 [...] removed - TOTAL ABDOM HYSTERECTOMY 08/31/06 Hysterectomy, [facility] Family History FAMILY HISTORY Problem Relation Age [...] Approx. 3 cigarettes daily-1 pack every w rosebud Substance Use Topics - Alcohol use: Yes [...] NAME : SALLY MCGREGOR Normal 11-17-2 020 [facility] PID : [id number] Sina boyd ([id number]) : 1980 Gender : Female Race : [...] ms QTC Calculation(Bazett) : 453 ms P [place] : 51 degrees R [place] : -43 degrees T [place] : 6 degrees Test Reason : Location : 185 : [facility] Overread By : RUBEN GALVIN D.O. Edited By : RUBEN GALVIN D.O. Referred By : JAY ARIAS) Acquired by : morena MURRIETA on 2019-11-18 [facility]) Normal 11-18-2019 [place] [facility] SALLY MCGREGOR ([id number]) 1980 [facility] Time Provider Department (90190) 11/18/19 JAY ARIAS) [facility] During your visit today, we recorded the following informati on about you: Lorenzohanna Vu 11/18/2019 2:[address] [facility] / [facility] calls with results of d-dimer 1.10 ( [...] cnov on 2019-11-18 CNOV Office Visit (FAMPWS) [place] 11-18-[address] [place] [address] Debra SALLY MCGREGOR ([id number]) 1980 [facility] Time Provider Department (49977) 11/18/19 12:20 PM JAY ARIAS) [facility] During your visit today, we recorded [...] Benign liver cyst 05/24/2010 CT scan at [facility] 11/2009 and 04/2010 showe 4 mm increase in size . No pain. No elevated LFTs on 03/11/2010. - Calculus of kidney 05/17/[address] Nicolas: Hospitalized age 20, a nd again later -- no procedures so far ([facility], most, 1995 [facility]) - Dysmenorrhea - Impaired fasting glucose 05/17/2008 [...] removed - TOTAL ABDOM HYSTERECTOMY 08/31/06 Hysterectomy, [facility] Family History FAMILY HISTORY Problem Relation Age [...] Approx. 3 cigarettes daily-1 pack every w rosebud Substance Use Topics - Alcohol use: Yes [...] Order(s):CONSULT TO PAIN MGT [19991220] Order #: [id number] : 1 FUTURE CBC + DIFF [SQCBCDIF] Order #: [id number] FUTURE COMP METABOLIC PANEL [SQCMP] Order #: [id number] FUTURE D-DIMER [SQDDMER] Order #: [id number] FUTURE TSH BLD [SQTSH] Order #: [id number] FUTURE CONSULT TO CARDIOLOGY [900] Order #: [id number]: 1 FUTUR E XR CHEST 2V FRONTAL/LAT [0513935] Order #: [id number] FUTURE TROPONIN T [SQTNT] Order #: [id number] FUTURE Prescriptions as of 11/18/2019 Sig: AMITRIPTYLINE [...] 11/18/19 emergency report on 2019-11-03 EMERGENCY REPORT [facility] Normal 11-03 [facility] ospital EMERGENCY ROOM REPORT (64090) NAME ACCOUNT SEX AGE ADMIT DISCHARGE PT MED. RECORD# NUMBER DATE DATE TYPE SAM [id number] F 39 10/31/19 10/31/19 3 SALLY [id number] ROOM: ER DATE OF : 1980 DICTATING [...] try contacting Dr. Kyle hernandez through the [employer]. We will dispense her 2 Percocet to go home. I did r eview her OARRS, and she will be discharged in stable condition. Page 1 of 2 SALLY MCGREGOR Emergency Room Report SALLY MCGREGOR : 1980 Dictated By: Nikhil Lord DO 10/31/19 18:03 JOB #: [id number] Transcribed By: am 11/01/19 14:42 Electronically signed by: JC Lord D.O. 11/03/19 07:04 Page 2 of 2 SALLY MCGREGOR Emergency Room Report urinalysis on 10-31 Calcium Ox 1+ NORMAL: NONE Normal 10-31-2019 [facility] (13884) Comment: Performed By: #### [id number] ## ## [facility] Hos[facility] nat[facility],[address] [facility] [address] Amorphous TRACE Normal 10-31-2019 [facility] (12448) Comment: Performed By: #### [id number] ## ## [facility] [facility],[place] [address] Bacteria LM.HPF (Urine sed) TRACE Normal [facility] [#/Area] [facility] ( 37241) Comment: Performed By: #### 839406 ## ## [facility] [facility] [address] Bilirubin [Mass/Vol] NEG NORMAL: NEGATIVE mg/dL Normal [facility] ospital (04595) Comment: Performed By: #### 133976 ## ## [facility] [facility] [address] Blood 25 NORMAL: NEGATIVE Abnormal 10-31-2019 [facility] (54572) Comment: Performed By: #### [id number] ## ## [facility] [facility] [address] Casts LM.LPF (Urine sed) NONE Normal 10-31 [facility] [/Area] [facility] ( 89574) Comment: Performed By: #### [id number] ## ## [facility] [facility] [address] Clarity (U) clear NORMAL: CLEAR Normal 10-31-2019 [facility] (42730) Comment: Performed By: #### [id number] ## ## [facility] [facility] [address] Color (U) yellow NORMAL: YELLOW Normal 10-31-2019 [facility] (12982) Comment: Performed By: #### 242768 ## ## [facility] [facility] [address] Crystals LM Nom (Urine sed) SEE BELOW Normal [facility] ( 83057) Comment: Performed By: #### [id number] ## ## [facility] [place] [address] Epi Cells MANY Normal 10-31-2019 [facility] (25179) Comment: Performed By: #### 706255 ## ## [facility] [place] [address] Glucose [Mass/Vol] NORM NORMAL: NORMAL Normal 2019 [facility] ( 42022) Comment: Performed By: #### 284134 ## ## [facility] [place] [address] Ketone NEG NORMAL: NEGATIVE Normal 10-31-2019 [facility] (84613) Comment: Performed By: #### [id number] ## ## [facility] [place] [address]329 Microscopic SEE BELOW Normal 10-31-2019 [facility] (66499) Comment: Result Comment: MICROSCOPIC Performed By: #### [id number] ## ## [facility] [place] [address] Mucous NONE Normal 10-31-2019 [facility] (63495) Comment: Performed By: #### [id number] ## ## [facility] [place] [address] Nitrite Ql (U) NEG NORMAL: NEGATIVE Normal 10-31-19 20 [facility] ( 54481) Comment: Performed By: #### [id number] ## ## [facility] [place] [address] 07357 pH (Bld) 5 NORMAL: 5.0-8.0 Normal 10-31-2019 [facility] (63720) Comment: Performed By: #### 812328 ## ## [facility],[address] [place] [address] 57873 Protein (U) NEG NORMAL: NEGATIVE mg/dL Normal 10-31-2019 [facility] [Mass/Vol] [facility] (22978) Comment: Performed By: #### 010116 ## ## [facility],[address] [place] [address] 25035 Rbc 0-5 0-3/hpf Normal 10-31-2019 [facility] (50058) Comment: Performed By: #### 289525 ## ## [facility],[address] [place], [place] [address] Sp [place] 1.030 NORMAL: 1.010-1.030 Normal 0 [facility] ( 68200) Comment: Performed By: #### [id number] ## ## [facility],[address] [place], [place] [address] Specimen type Nom (Spec) UNSPECIFIED Normal [facility] ( 85999) Comment: Performed By: #### [id number] ## ## [facility],[address] [place], [place] [address] Urobilinog NORM NORMAL: NORMAL Normal 10-31-2019 [facility] (61185) Comment: Performed By: #### 078114 ## ## [facility],[address] [place] [address] 13375 Wbc 1-5 0-5/hpf Normal 10-31-2019 [facility] (50186) Comment: Performed By: #### 032609 ## ## [facility],[address] [place] [address] 83808 WBC (Bld) [#/Vol] 25 NORMAL: NEGATIVE Abnormal 10-31 [facility] ( 84220) Comment: Performed By: #### 834978 ## ## [facility],[address] [place] [address] 47507 Yeast LM Ql (Urine sed) NONE Normal 2019 [facility] (01753) Comment: Performed By: #### 359001 ## ## [facility],[address] [facility] [address] lipase on 2019-10-15 7 Lipase [Catalytic 40.0 18.0 - 51.0 U/L Normal 10-31-2019 [facility] activity/Vol] [facility] (20005) Comment: Performed By: #### [id number] ## ## [facility] [facility] [address] cmp with egfr on 03-11-16 Age - Reported 39 years Normal 10-31-2019 [facility] (67308) Comment: Performed By: #### 870450 ## ## [facility],[address] [place] [address] 474[address] Albumin [Mass/Vol] 4.4 3.4 - 4.8 g/dL Normal 10-31-2019 [facility] ( 76191) Comment: Performed By: #### 862692 ## ## [facility],[address] [place] [address] 53454 Albumin/Globulin [Mass 1.3 0.9 - 1.6 {ratio} Normal 020 [facility]] [facility] (25554) Comment: Performed By: #### 083319 ## ## [facility] [address] ALK PHOS 79 38 - 126 U/L Normal 10-31-2019 [facility] (27996) Comment: Performed By: #### 492358 ## ## [facility] [address] ALT/SGPT 12 8 - 35 U/L Normal 10-31-2019 [facility] (84303) Comment: Performed By: #### 223348 ## ## [facility] [address] Anion gap [Moles/Vol] 12 10 - 20 mmol/L Normal 10-31-19 [facility] ( 63043) Comment: Performed By: #### 005374 ## ## [facility],[address] [facility] [address] AST/SGOT 13 13 - 39 U/L Normal 10-31-2019 [facility] (26931) Comment: Performed By: #### 991869 ## ## [facility] [facility] [address] B/C RATIO 18 0 - 30 ratio Normal 10-31-2019 [facility] (10296) Comment: Performed By: #### 169338 ## ## [facility] [facility] [address] Bilirubin [Mass/Vol] 0.4 0.0 - 1.5 mg/dl Normal 0 [facility] ( 96547) Comment: Performed By: #### 137794 ## ## [facility] [place] [address] Calcium [Mass/Vol] 9.6 8.6 - 10.2 mg/dl Normal 10-31-2019 [facility] ( 32366) Comment: Performed By: #### 793242 ## ## [facility] [place] [address] Chloride [Moles/Vol] 103 98 - 107 mmol/L Normal 0 [facility] ( 98229) Comment: Performed By: #### 213216 ## ## [facility] [place] [address] CO2 [Moles/Vol] 25.8 21.0 - 31.0 mmol/L Normal 10-31-2019 [facility] ( 08480) Comment: Performed By: #### 852804 ## ## [facility] [facility] [place] [address] Creatinine [Mass/Vol] 1.0 0.6 - 1.2 mg/dl Normal 10-31-19 20 [facility] ( 69440) Comment: Performed By: #### 341920 ## ## [facility],[address] [place] [address] 92471 GFR/1.73 sq M predicted among Normal 10-31-2019 [facility] non-blacks MDRD (S/P/Bld) [Vol Hospital (20809) rate/Area] Comment: Result Comment: COMPREHENSIV E METABOLIC PANEL Performed By: #### [id number] ## ## [facility],[address] [place] [address] 38425 GFR/1.73 sq M >60 60 - 999 mL/min/{1.73_m2} Normal 0 [facility] predicted among [facility] non-blacks MDRD (000 00) (S/P/Bld) [Vol [...] OF AGE AND OLDER. Performed By: #### [id number] ## ## [facility],[address] [place] [address] Globulin (S) [Mass/Vol] 3.3 1.5 - 3.8 G/DL Normal 2019 [facility] System ( 41794) Comment: Performed By: #### [id number] ## ## [facility],[address] [place] [address] 93625 Glucose [Mass/Vol] 96 74 - 106 mg/dl Normal 10-31-2019 [facility] ( 42714) Comment: Performed By: #### [id number] ## ## [facility],[address] [place] [address] 84426 Potassium [Moles/Vol] 3.9 3.5 - 5.1 mmol/L Normal 10-31-19 [facility] ( 91614) Comment: Performed By: #### [id number] ## ## [facility],[address] [place] [address] 95797 Protein [Mass/Vol] 7.7 6.4 - 8.3 g/dl Normal 10-31-2019 [facility] ( 48192) Comment: Performed By: #### [id number] ## ## [facility],[address] [place] [address] 35218 Sodium [Moles/Vol] 137 136 - 145 mmol/l Normal 10-31-2019 [facility] ( 28256) Comment: Performed By: #### [id number] ## ## [facility],[address] [place] [address] 46278 Urea nitrogen [Mass/Vol] 18 6 - 20 mg/dl Normal 10-31 [facility] ( 77400) Comment: Performed By: #### [id number] ## ## [facility],[address] [place] [address] 00645 cbc + diff on 10-31 Basophils (Bld) 0.20 0.00 - 0.10 x10EE3/UL High 10-31-2019 [facility] [#/Vol] [facility] (56839) Comment: Performed By: #### [id number] ## ## [facility],[address] [place] [address] 71323 Basophils/100 WBC (Bld) 2.0 0.0 - 2.0 % Normal 2019 [facility] ( 38314) Comment: Performed By: #### [id number] ## ## [facility],[address] [place] [address] 00710 CBC + DIFF Normal 10-31-2019 [facility] (57697) Comment: Result Comment: CBC-COMPLETE BLOOD COUNT Performed By: #### [id number] ## ## [facility],[address] [place] [address] 75998 Eosinophils (Bld) 0.40 0.00 - 0.50 x10EE3/UL Normal 10-31-2019 [facility] [#/Vol] [facility] (09025) Comment: Performed By: #### [id number] ## ## [facility],[address] [place] [address] 56467 Eosinophils/100 WBC (Bld) 4.8 0.0 - 7.0 % Normal 10-15 [facility] ( 20873) Comment: Performed By: #### [id number] ## ## [facility],[address] [place] [address] 37914 Erythrocyte distribution 13.7 12.0 - 15.6 % Normal [facility] (RBC) [Ratio] [facility] (03875) Comment: Performed By: #### [id number] ## ## [facility],[address] [place] [address] 17414 Hematocrit (Bld) [Volume 35.8 34.0 - 46.0 % Normal [facility] ( 87786) Comment: Performed By: #### [id number] ## ## [facility],[address] [place] [address] 63911 Hemoglobin (Bld) 12.3 12.0 - 16.0 g/dl Normal 10-31-2019 [facility] [Mass/Vol] [facility] (64934) Comment: Performed By: #### [id number] ## ## [facility],[address] [place] [address] 03641 Lymphocytes (Bld) 2.70 0.80 - 2.80 x10EE3/UL Normal 10-31-2019 [facility] [#/Vol] [facility] (05855) Comment: Performed By: #### [id number] ## ## [facility],[address] [place] [address] 91172 Lymphocytes/100 WBC (Bld) 30.3 20.0 - 45.0 % Normal [facility] ( 86707) Comment: Performed By: #### [id number] ## ## [facility],[address] [place] [address] 66595 MANUAL DIFF N/A Normal 10-31-2019 [facility] (90980) Comment: Performed By: #### [id number] ## ## [facility],[address] [place] [address] 01270 MCH (RBC) [Entitic mass] 30 27 - 33 pg Normal 10-31 [facility] ( 53942) Comment: Performed By: #### [id number] ## ## [facility],[address] [place] [address] 39285 MCHC (RBC) [Mass/Vol] 34 32 - 36 X10 3 Normal 10-31-19 20 [facility] ( 39356) Comment: Performed By: #### [id number] ## ## [facility],[address] [place] [address] 75401 MCV (RBC) [Entitic vol] 88 80 - 99 fl Normal 2019 [facility] ( 22793) Comment: Performed By: #### [id number] ## ## [facility],[address] [place] [address] 03631 Monocytes (Bld) 0.50 0.20 - 1.00 x10EE3/UL Normal 10-31-2019 [facility] [#/Vol] [facility] (71790) Comment: Performed By: #### [id number] ## ## [facility],[address] [place] [address] 06102 MONOS % 5.4 0.0 - 10.0 % Normal 10-31-2019 [facility] (12251) Comment: Performed By: #### [id number] ## ## [facility],[address] [place] [address] 56861 Morphology Adrian (Bld) [Interp] N/A Normal 10-31-2019 [facility] ( 61472) Comment: Performed By: #### [id number] ## ## [facility],[address] [place] [address] 03983 Neutrophils (Bld) 5.10 1.50 - 7.10 x10EE3/UL Normal 10-31-2019 [facility] [#/Vol] [facility] (59906) Comment: Performed By: #### [id number] ## ## [facility],[address] [place] [address] 10109 Neutrophils/100 WBC (Bld) 57.5 46.0 - 76.0 % Normal [facility] ( 91259) Comment: Performed By: #### [id number] ## ## [facility],[address] [place] [address] 58588 Platelet mean volume 8.9 6.6 - 10.5 fl Normal 10-31-19 20 [facility] (d) [Entitic vol] [facility] (22528) Comment: Result Comment: AUTOMATED DI FFERENTIAL Performed By: #### [id number] ## ## [facility],[address] [place] [address] 94056 Platelets (Bld) 280 150 - 450 x10EE3/UL Normal 10-31-2019 [facility] [#/Vol] [facility] (64665) Comment: Performed By: #### [id number] ## ## [facility],[address] [place] [address] 12235 RBC (Bld) [#/Vol] 4.06 4.10 - 5.30 x 10EE6/UL Low 0 [facility] ( 13829) Comment: Performed By: #### [id number] ## ## [facility],[address] [place] [address] 40021 WBC (Bld) [#/Vol] 8.8 4.5 - 10.8 x 10EE3/UL Normal 10-31-2019 [facility] ( 89336) Comment: Performed By: #### [id number] ## ## [facility] [address] hemogram on 2019-09 Erythrocyte distribution 13.6 11.5-14.5 % Normal 10-08 [facility] width (RBC) [Ratio] (08476) Comment: Performed By: #### BMP3M, MG 3, HEMOG #### [facility] [address] [place], [place] Hematocrit (Bld) [Volume 33.3 35.0-47.0 % Low 10-08 [facility] fraction] (84521) Comment: Performed By: #### BMP3M, MG 3, HEMOG #### [facility] [address] [place], [place] Hemoglobin (Bld) [Mass/Vol] 11.3 11.7-16.0 g/dL Low [facility] (47119) Comment: Performed By: #### BMP3M, MG 3, HEMOG #### [facility] [address] [place], [place] MCH (RBC) [Entitic mass] 30.4 26.0-34.0 pg Normal 10-08 [facility] (69105) Comment: Performed By: #### BMP3M, MG 3, HEMOG #### [facility] [address] [place], [place] MCHC (RBC) [Mass/Vol] 33.9 32.0-36.0 % Normal 10-08-19 [facility] (79540) Comment: Performed By: #### BMP3M, MG 3, HEMOG #### [facility] [address] [place], [place] MCV (RBC) [Entitic vol] 89.9 79.0-98.0 fL Normal 2019 [facility] (45570) Comment: Performed By: #### BMP3M, MG 3, HEMOG #### [place] [address] [place], [place] Platelet mean volume (Bld) 9.5 7.4-10.4 fL Normal [facility] [Entitic vol] (36834 ) Comment: Performed By: #### BMP3M, MG 3, HEMOG #### [facility] [address] [place], [place] Platelets (Bld) [#/Vol] 240 140-440 10*3/uL Normal 2019 [facility] (11079) Comment: Performed By: #### BMP3M, MG 3, HEMOG #### [facility] [address] [place], [place] RBC (Bld) [#/Vol] 3.70 3.80-5.20 10*6/uL Low 10-08-2019 [facility] (73988) Comment: Performed By: #### BMP3M, MG 3, HEMOG #### [place] [address] [place], [place] WBC (Bld) [#/Vol] 18.5 3.6-10.7 10*3/uL High 10-08-2019 [facility] (30819) Comment: Performed By: #### BMP3M, MG 3, HEMOG #### [facility] [address] [place], [place] ts gel on 2019-09-15 4 TS GEL ABO Group: Normal 10-07-2019 [facility] (85504) O Rh, Gel: POS Antibody Screen Gel: NEG Comment: Performed By: #### BMP3M, MG 3, HEMOG #### [facility] [address] [place], [place] surgical pathology on 2019-10-07 Surgical [id number] Normal 10-07-2019 [facility] Pathology [facility] System PATHOLOGY AND (91378 ) LABORATORY MEDICINE [address] [place] [address] FINAL SURGICAL PATHOLOGY REPORT NAME: SALLY MCGREGOR : 1980 39 Y [place] CRISTOBAL NO.: [id number] LOCATION: I 5117 01 PROCEDURE 10/07/2019 DATE: [...] determined by the clinical labor atories of [facility]. They have not been cleared by the [facility] od and Drug Administration (FDA). The [...] Results should be interpreted with caution given [facility] raised possibility of false negativity on decalcified specimens. Professional Performing Location: [address] [address]. DEPARTMENT OF PATHOLOGY AND LABORATORY MEDICINE [place], [place] [address] op note on Op Note PATIENT: SALLY MCGREGOR - [facility] ([id number]) ADMISSION DATE: 10/07/2019 SURGERY DATE: 10/07/2019 DATE [...] mass from a prior exam done in [facility] office. She underwent abdominal prep and [...] with a minimal EBL. Disk[employer] Job ID: [id number] Delon Palacios MD DOD:10/07/2019 10:46 A /semaj DOT:10/07/2019 12:51 P Job Number: [id number] Document Number: [id number] cc: Delon Palacios MD [facility] [facility] [address] Lui Harris MD [address] [place] [address], [address] [facility] [address] follicle stim hormone on 2019-09-15 Follicle Stim Hormone 6.5 m[IU]/mL Normal 09-15-19 [email or web address] (35834) Comment: Result Comment: Females: Follicular Phase ...... 2.3- 12.6 Mid-cycle Peak ........ 5.2- 17.5 Luteal Phase .......... 1.7- 12.9 Post-menopausal ....... 12.7 -132.2 Males: 0.7-10.8 Performed By: #### FSH3 #### [facility] [address] [place] [address] us pelvis ta/tv on 2019-09-11 US Pelvis TA/TV Patient Name: SALLY MCGREGOR 09-11-2019 [facility] (47275 ) Ultrasound Exam Date/Time 09/11/2019 14:17:16 EST Exam US Pelvis TA/TV Ordering Physician MARLA ARNDT REBECCA E. Accession Number [id number] CPT4 Codes 85681 (US Pelvis TA/TV), 40045 (US Transvaginal) Reason For Exam right ovarian mass seen on CT, s/p hysterectomy Report EXAMINATION: Transabdominal and transvaginal pelvic ultrasound. COMPARISON: CT scan of 09/11/2019 from [facility]. REASON FOR STUDY: Right ovarian mass; prior [...] Baso Cnt 0.0 0.0-0.2 10*3/uL Normal 09-05-2019 [facility] (55514) Comment: Performed By: #### HEMDF, BM P3 #### [facility] [address] [place] [address] Abs Neutrophile Cnt 3.9 1.8-7.0 10*3/uL Normal 09-05-2019 [facility] (13950) Comment: Performed By: #### HEMDF, BM P3 #### [facility] [address] [place] [address] Basophils/100 WBC (Bld) 0.3 0.0-2.0 % Normal 2018 [facility] (27724) Comment: Performed By: #### HEMDF, BM P3 #### [place] [address] [place] [address] Eosinophils (Bld) [#/Vol] 0.2 0.0-0.5 10*3/uL Normal 08-15 [facility] (22135) Comment: Performed By: #### HEMDF, BM P3 #### [facility] [place] [address] Eosinophils/100 WBC (Bld) 3.3 1.0-6.0 % Normal 08-15 [facility] (79713) Comment: Performed By: #### HEMDF, BM P3 #### [place] [address] [place] [address] Erythrocyte distribution 12.9 11.5-14.5 % Normal 09-05 [facility] width (RBC) [Ratio] (89784) Comment: Performed By: #### HEMDF, BM P3 #### [place] [address] [place] [address] Granulocytes/100 WBC (Bld) 55.5 40.0-80.0 % Normal [facility] (04289) Comment: Performed By: #### HEMDF, BM P3 #### [place] [address] [place] [address] Hematocrit (Bld) [Volume 34.8 35.0-47.0 % Low 09-05 [facility] fraction] (97997) Comment: Performed By: #### HEMDF, BM P3 #### [facility] [address] [place] [address] Hemoglobin (Bld) [Mass/Vol] 11.5 11.7-16.0 g/dL Low [facility] (08910) Comment: Performed By: #### HEMDF, BM P3 #### [place] [address] [place], [place] Lymphocytes (Bld) [#/Vol] 2.5 1.0-4.3 10*3/uL Normal 08-15 [facility] (07906) Comment: Performed By: #### HEMDF, BM P3 #### [place] [address] [place], [place] Lymphocytes/100 WBC (Bld) 35.4 20.0-40.0 % Normal 08-15 [facility] (74124) Comment: Performed By: #### HEMDF, BM P3 #### [place] [address] [place] MCH (RBC) [Entitic mass] 29.9 26.0-34.0 pg Normal 09-05 [facility] (63723) Comment: Performed By: #### HEMDF, BM P3 #### [place] [address] [place] MCHC (RBC) [Mass/Vol] 33.0 32.0-36.0 % Normal 09-05-20 19 [facility] (62011) Comment: Performed By: #### HEMDF, BM P3 #### [place] [address] [place] MCV (RBC) [Entitic vol] 90.7 79.0-98.0 fL Normal 2018 [facility] (41644) Comment: Performed By: #### HEMDF, BM P3 #### [place] [address] [place], [place] Monocytes (Bld) [#/Vol] 0.4 0.0-0.8 10*3/uL Normal 2018 [facility] (12487) Comment: Performed By: #### HEMDF, BM P3 #### [email or web address] [address] [place] [address] Monocytes/100 WBC (Bld) 5.5 2.0-10.0 % Normal 2018 [facility] (87656) Comment: Performed By: #### HEMDF, BM P3 #### [email or web address] [place] [address] [place], [place] Platelet mean volume (Bld) 9.8 7.4-10.4 fL Normal [facility] [Entitic vol] (50761 ) Comment: Performed By: #### HEMDF, BM P3 #### [place] [address] [place], [place] Platelets (Bld) [#/Vol] 204 140-440 10*3/uL Normal 2018 [facility] (15428) Comment: Performed By: #### HEMDF, BM P3 #### [place] [address] [place], [place] RBC (Bld) [#/Vol] 3.83 3.80-5.20 10*6/uL Normal 09-05-2019 [facility] (04248) Comment: Performed By: #### HEMDF, BM P3 #### [place] [address] [place], [place] WBC (Bld) [#/Vol] 7.0 3.6-10.7 10*3/uL Normal 09-05-2019 [facility] (76479) Comment: Performed By: #### HEMDF, BM P3 #### [place] [address] [place], [place] cr urography retrograde w/ + w/o kub on 2019-09-05 CR Urography Patient Name: SALLY MCGREGOR Normal 09-05-2019 [facility] Retrograde w/ + w/o System (77533) KUB Diagnostic Radiology Exam Date/Time 09/05/2019 08:12:21 EST Exam CR Urography Retrograde w/ + w/o KUB Ordering Physician MAUREEN STONE Accession Number [id number] CPT4 Codes 65524 () Reason For Exam Renal stone fluro c arm c and p Report A total of 1 minute and 11 seconds of fluoro time was used in the Operating Suite for this procedure. No other report will be generated. Final Signed Date and Time: 09/26/2019 2:02 pm Signed by: YARD CLEANER, SYSTEM Transcribed Date and Time: 09/26/2019 1:19 Transcribed By:KRISTAN basic metabolic panel on 2019-09-05 Calcium [Mass/Vol] 8.7 8.4-10.4 mg/dL Normal 09-05-2019 [facility] (65900) Comment: Performed By: #### HEMDF, BM P3 #### [facility] [address] [place] [address] Anion gap [Moles/Vol] 7 Normal 09-05-20 [facility] (32445) Comment: Performed By: #### HEMDF, BM P3 #### [email or web address] [address] [place] [address] CO2 [Moles/Vol] 24 22-30 mmol/L Normal 09-05-2019 [facility] (35787) Comment: Performed By: #### HEMDF, BM P3 #### [facility] [address] [place] [address] Creatinine [Mass/Vol] 0.79 0.52-1.25 mg/dL Normal 09-05-20 [facility] (80494) Comment: Performed By: #### HEMDF, BM P3 #### [email or web address] [address] [place] [address] GFR/1.73 sq M > 60.0 >60 mL/min/{1.73_m2} Normal 9 [facility] predicted among Syst em (44851) blacks MDRD (S/P/Bld) [Vol rate/Area] Comment: Performed By: #### HEMDF, BM P3 #### [email or web address] [address] [place] [address] GFR/1.73 sq M > 60.0 >60 mL/min/{1.73_m2} Normal 9 [email or web address] predicted among Syst em (64250) non-blacks MDRD (S/P/Bld) [Vol rate/Area] Comment: Result Comment: Source- MDRD equation with creatinine calibration to IDMS(NKDEP) eGFR not recommended for dylon g dose adjustment Performed By: #### HEMDF, BM P3 #### [employer] [place] [address] [place], [place] Glucose [Mass/Vol] 85 70-100 mg/dL Normal 09-05-2019 [facility] (44237) Comment: Performed By: #### HEMDF, BM P3 #### [employer] [place] [address] [place] Urea nitrogen [Mass/Vol] 5 7-20 mg/dL Low 09-05 [facility] (35703) Comment: Performed By: #### HEMDF, BM P3 #### [employer] [place] [address] [place] Chloride [Moles/Vol] 108 98-107 mmol/L High 9 [email or web address] (24372) Comment: Performed By: #### HEMDF, BM P3 #### [email or web address] [place] [address] [place], [place] Potassium [Moles/Vol] 4.0 3.5-5.1 mmol/L Normal 09-05-20 19 [email or web address] (21906) Comment: Performed By: #### HEMDF, BM P3 #### [employer] [place] [address] [place] Sodium [Moles/Vol] 140 135-145 mmol/L Normal 09-05-2019 [facility] (33744) Comment: Performed By: #### HEMDF, BM P3 #### [employer] [place] [address] [place], [place] magnesium on 2018-09-22 Magnesium [Mass/Vol] 1.9 1.6-2.3 mg/dL Normal 9 [email or web address] (27998) Comment: Performed By: #### BMP3M, MG 3, HEMOG #### [facility] [address] [place], [place] hemogram on 2019-08 Erythrocyte distribution 13.2 11.5-14.5 % Normal 09-04 [facility] width (RBC) [Ratio] (01567) Comment: Performed By: #### BMP3M, MG 3, HEMOG #### [facility] [address] [place], [place] Hematocrit (Bld) [Volume 36.7 35.0-47.0 % Normal 09-04 [facility] fraction] (94807) Comment: Performed By: #### BMP3M, MG 3, HEMOG #### [facility] [address] [place], [place] Hemoglobin (Bld) 12.3 11.7-16.0 g/dL Normal 09-04-2019 [facility] [Mass/Vol] (85598) Comment: Performed By: #### BMP3M, MG 3, HEMOG #### [facility] [address] [place] MCH (RBC) [Entitic mass] 30.6 26.0-34.0 pg Normal 09-04 [facility] (93155) Comment: Performed By: #### BMP3M, MG 3, HEMOG #### [place] [address] [place], [place] MCHC (RBC) [Mass/Vol] 33.5 32.0-36.0 % Normal 09-04-20 19 [facility] (40714) Comment: Performed By: #### BMP3M, MG 3, HEMOG #### [facility] [address] [place] MCV (RBC) [Entitic vol] 91.3 79.0-98.0 fL Normal 2018 [facility] (68650) Comment: Performed By: #### BMP3M, MG 3, HEMOG #### [facility] [address] [place], [place] Platelet mean volume (Bld) 10.4 7.4-10.4 fL Normal [facility] [Entitic vol] (06018 ) Comment: Performed By: #### BMP3M, MG 3, HEMOG #### [facility] [address] [place], [place] Platelets (Bld) [#/Vol] 211 140-440 10*3/uL Normal 2018 [facility] (74819) Comment: Performed By: #### BMP3M, MG 3, HEMOG #### [facility] [address] [place], [place] RBC (Bld) [#/Vol] 4.02 3.80-5.20 10*6/uL Normal 09-04-2019 [facility] (68444) Comment: Performed By: #### BMP3M, MG 3, HEMOG #### [place] [address] [place], [place] WBC (Bld) [#/Vol] 7.1 3.6-10.7 10*3/uL Normal 09-04-2019 [facility] (01607) Comment: Performed By: #### BMP3M, MG 3, HEMOG #### [place] [address] [place], [place] culture urine on 01-09-22 CULTURE URINE CULTURE URINE --> Status: F Normal 09-04-2019 [facility] No growth (<1,000 CFU/ml). (74582) Comment: Order Comment: Specimen Sour ce Comment:Urine, clean catch Performed By: #### C/UR #### [place] [address] [place], [place] basic metabolic panel on 2019-09-04 Potassium [Moles/Vol] 3.5 3.5-5.1 mmol/L Normal 09-04-20 [facility] (39629) Comment: Performed By: #### BMP3M, MG 3, HEMOG #### [facility] [address] [place] Anion gap [Moles/Vol] 9 Normal 09-04-20 [facility] (18465) Comment: Performed By: #### BMP3M, MG 3, HEMOG #### [facility] [address] [place] Calcium [Mass/Vol] 8.8 8.4-10.4 mg/dL Normal 09-04-2019 [facility] (87921) Comment: Performed By: #### BMP3M, MG 3, HEMOG #### [place] [address] [place], [place] CO2 [Moles/Vol] 26 22-30 mmol/L Normal 09-04-2019 [facility] (34758) Comment: Performed By: #### BMP3M, MG 3, HEMOG #### [place] [address] [place] Glucose [Mass/Vol] 76 70-100 mg/dL Normal 09-04-2019 [facility] (57604) Comment: Performed By: #### BMP3M, MG 3, HEMOG #### [place] [address] [place] Urea nitrogen [Mass/Vol] 10 7-20 mg/dL Normal 09-04 [facility] (15736) Comment: Performed By: #### BMP3M, MG 3, HEMOG #### [place] [address] [place] Creatinine [Mass/Vol] 0.81 0.52-1.25 mg/dL Normal 09-04-20 19 [facility] (88966) Comment: Performed By: #### BMP3M, MG 3, HEMOG #### [place] [address] [place] GFR/1.73 sq M > 60.0 >60 mL/min/{1.73_m2} Normal 9 [facility] predicted among Syst em (73384) blacks MDRD (S/P/Bld) [Vol rate/Area] Comment: Performed By: #### BMP3M, MG 3, HEMOG #### [place] [address] [place] GFR/1.73 sq M > 60.0 >60 mL/min/{1.73_m2} Normal 9 [facility] predicted among Syst em (46885) non-blacks MDRD (S/P/Bld) [Vol rate/Area] Comment: Result Comment: Source- MDRD equation with creatinine calibration to IDMS(NKDEP) eGFR not recommended for dylon g dose adjustment Performed By: #### BMP3M, MG 3, HEMOG #### [facility] [address] [place] Sodium [Moles/Vol] 138 135-145 mmol/L Normal 09-04-2019 [facility] (26492) Comment: Performed By: #### BMP3M, MG 3, HEMOG #### [facility] [address] [place] Chloride [Moles/Vol] 103 98-107 mmol/L Normal 9 [facility] (22410) Comment: Performed By: #### BMP3M, MG 3, HEMOG #### [facility] [email or web address] [address] [place], [place] cr abdomen ap on 01-09-21 CR Abdomen AP Patient Name: SALLY MCGREGOR 09-03-2019 [facility] ([id number] ) Diagnostic Radiology Exam Date/Time 09/03/2019 17:35:36 EST Exam CR Abdomen AP Ordering Physician MD RACH,CONCHIS J Accession Number [id number] CPT4 Codes 89132 () Reason For Exam nephrolithiasis Report ABDOMEN, [...] on 2019-08-03 [facility]CO Letter Text Normal 08-03-2019 [facility] (17695) xr sacrum/coccyx 3v ap/lat on 2019-07-21 XR SACRUM/COCCYX 3V * * *Final Report* * * Normal 07-21-2019 [place] AP/LAT DATE OF EXAM: Jul 21 2019 11:38AM [facility] WOX 5246 - XR SACRUM/COCCYX 3V AP/LAT / 4 [place] PROCEDURE REASON: multiple diagnoses (70244) * * * * Physician Interpretation * [...] BONY ABNORMALITY IN THE PELVIS SEGMENT COCCYX. Concrete Finisher: PSCB Transcribe Date/Time: Jul 21 2019 4:01P Dictated by : ESTEE CUMMINGS MD This examination was interpreted and the report reviewed and electronically signed by: ESTEE CUMMINGS MD on Jul 21 2019 4:06PM EST [id number] xr lumbar 3v ap/lat/l5-s1 on 2019-07-21 XR LUMBAR 3V * * *Final Report* * * Normal Mata AP/LAT/L5-S1 DATE OF EXAM: Jul 21 2019 11:38AM [facility] WOX 5228 - XR LUMBAR 3V AP/LAT/L5-S1 / [place] PROCEDURE REASON: multiple diagnoses (85243) * * * * Physician Interpretation * [...] BONY ABNORMALITY IN THE PELVIS SEGMENT COCCYX. Concrete Finisher: [facility] Transcribe Date/Time: Jul 21 2019 4:01P Dictated by : ESTEE CUMMINGS MD This examination was interpreted and the report reviewed and electronically signed by: ESTEE CUMMINGS MD on Jul 21 2019 4:06PM EST [id number] tsh on 2019-07-21 TSH Qn 1.510 0.270-4.200 uU/mL Normal 07-21-2019 [facility] ([id number]) Comment: Result Comment: If the patie nt [...] et al. 2017 Guide lines of the [place] Thyroid Association for the Diagnosis and Management of Thyroid Disease during and the . Thyroid, 2017:27:3:315-389. Performed By: #### HBA1C, TS Julieth, MORIAH #### [facility] [address] [place] [id number] progress on 2019-07 PROGRESS HNO ID: [id number] Normal 07-21-2019 [facility] Author: Elena Stauffer [place] ([id number]) Service: ? Author Type: ? Type: Progress [...] 21, 2019 11:23 AM PROGRESS HNO ID: [id number] Normal 07-21-2019 [facility] Author: Randi Arias [place] ([id number]) Service: ? Author Type: Physician Admissions Director Type: Progress Notes Filed: 07/21/2019 11:26 AM [...] Benign liver cyst 05/24/2010 CT scan at [facility] 11/2009 and 04/2010 showe 4 mm increase in size . No pain. No elevated LFTs on 03/11/2010. - Calculus of kidney 05/17/[address] Nicolas: Hospitalized age 20, and again later -- no procedures so far ([facility] [place] [facility], 1995 [facility]) - Dysmenorrhea - Impaired fasting glucose 05/17/2008 [...] removed - TOTAL ABDOM HYSTERECTOMY 08/31/06 Hysterectomy, [facility] Family History FAMILY HISTORY Problem Relation Age [...] activity: Yes Partners: Male control/protection: Surgical Comment: [facility] Lifestyle Physical activity: Days per week: Not on file Minutes per session: Not on file Stress: Not on file Relationships Social connections: Talks on phone: Not on file Gets together: Not on file Attends church service: Not on file Active member of [...] Cholesterol [Mass/Vol] 206 <200 mg/dL High 019 [facility] ([id number]) Comment: Result Comment: <200 mg/dL, Desirable 200-239 mg/dL, Borderline hi gh >239 mg/dL, High Performed By: #### HBA1C, TS H, LIPNF #### [facility] [address] [place], [place] [address] Cholesterol in 2.39 <2.54 mg/dL Normal 07-21-2019 [facility] LDL/Cholesterol in HDL [Mass [place] (56251) ratio] Comment: Result Comment: Reference: 1. National Cholesterol Educ ation Program ATP III Guideline At-A-Glance Quick Desk Reference: National Heart, Lung, and Blood [place]. National Institutes of Health. 2001: NIH Publication No. 01-3305. 2. An International Atherosc lerosis Society position paper: global recommendations for the management of dyslipidemia: executive summary, Atherosclerosis. 2014: 232(2):410-413. Performed By: #### HBA1C, TS H, LIPNF #### [facility] [address] [place], [place] [address] Cholesterol.total/Cholesterol in 4.04 <5.10 mg/dL Normal 07-21-2019 [place] HDL [Mass ratio] Cli nghia [place] (03738) Comment: Performed By: #### HBA1C, TS H, LIPNF #### [facility] [address] [place], [place] [address] HDL Cholesterol, NF 51 >39 mg/dL Normal 07-21-2019 [facility] (93626) Comment: Result Comment: 40-59 mg/dL, Acceptable >59 mg/dL, High: Negative ri sk factor for coronary heart disease <40 mg/dL, Low: Positive ris k factor for coronary heart disease Performed By: #### HBA1C, TS H, LIPNF #### [facility] [address] [place], [place] [address] LDL Cholesterol, NF 122 <100 mg/dL High 07-21-2019 [facility] (31052) Comment: Result Comment: <100 mg/dL, Optimal 100-129 mg/dL, Near optimal/ above optimal 130-159 mg/dL, Borderline hi gh 160-189 mg/dL, High >189 mg/dL, Very high Secondary prevention optimal LDL Cholesterol levels are recommended to be < 70 mg/dL Performed By: #### HBA1C, TS H, LIPNF #### [facility] [address] [place] [address] Non HDL Chol, NF 155 <130 mg/dL High 07-21-2019 Cl [facility] (65481) Comment: Result Comment: <130 mg/dL, Optimal 130-159 mg/dL, Near optimal/ above optimal 160-189 mg/dL, Borderline hi gh 190-219 mg/dL, High >219 mg/dL, Very high Secondary prevention optimal non HDL Cholesterol levels are recommended to be < 100 mg/dL Performed By: #### HBA1C, TS H, LIPNF #### [facility] [address] [place] [address] Triglycerides, NF 163 <150 mg/dL High 07-21-2019 C [facility] (31485) Comment: Result Comment: <150 mg/dL, Normal 150-199 mg/dL, Borderline hi gh 200-499 mg/dL, High >499 mg/dL, Very high Performed By: #### HBA1C, TS H, LIPNF #### [facility] [address] [place] [address] VLDL Cholesterol, NF 33 <30 mg/dL High 9 [facility] (99000) Comment: Performed By: #### HBA1C, TS H, LIPNF #### [facility] [address] [place] [address] hemoglobin a1c on HbA1c (Bld) [Mass fraction] 5.3 4.3-5.6 % Normal [facility] (69164) Comment: Result Comment: [place] Marya betes Association guidelines indicate that patients with HgbA1c in the range 5.7-6.4% are at increased risk for development of diabetes, and intervention by lifestyle modification may be beneficial. HgbA1c greater o r equal to 6.5% is considered diagnostic of diabetes. Performed By: #### HBA1C, TS H, LIPNF #### [facility] [address] [place] [address] HbA1c (Bld) [Mass fraction] 105 mg/dL Normal [facility] (84803) Comment: Result Comment: eAG: (Jaimiea arnie average glucose) is a calculated value from HgbA1c and is inside sales representative of the average blood glucose level in the last 2-3 month period. Performed By: #### HBA1C, TS H, LIPNF #### [facility] [address] [place], [place] [id number] cnov on 2019-07-21 CNOV Office Visit (FAMPWS) Normal 07-21-20 [place] [facility] SALLY MCGREGOR ([id number]) 1980 [facility] Date Time Provider Department ([id number]) 07/21/19 10:40 AM JAY ARIAS) FAMPWS During [...] Benign liver cyst 05/24/2010 CT scan at [facility] 11/2009 and 04/2010 showe 4 mm increase in size . No pain. No elevated LFTs on 03/11/2010. - Calculus of kidney 05/17/[address] Nicolas: Hospitalized age 20, a nd again later -- no procedures so far ([facility], [facility], 1995 [facility]) - Dysmenorrhea - Impaired fasting glucose 05/17/2008 [...] removed - TOTAL ABDOM HYSTERECTOMY 08/31/06 Hysterectomy, [facility] Family History FAMILY HISTORY Problem Relation Age [...] activity: Yes Partners: Male control/protection: Surgical Comment: [facility] Lifestyle Physical activity: Days per week: Not on file Minutes per session: Not on file Stress: Not on file Relationships Social connections: Talks on phone: Not on file Gets together: Not on file Attends church service: Not on file Active member of [...] Z13.6] Order(s):CONSULT TO NEUROLOGY [9019] Order #: [id number]: 1 FUTURE amitriptyline (ELAVIL) 50 mg tabletTake 1 tablet by mouth da federico at bedtime.Disp: 30 tabletRfl: 5 XR LUMBAR GENERAL 3V AP/LAT/L5-S1 [4222111] Order #: [id number] FUTURE XR SACRUM/COCCYX 3V AP/LAT [1868752] Order #: [id number] FUT URE TSH BLD [SQTSH] Order #: [id number] FUTURE HGB A1C [RLGAH5U] Order #: [id number] FUTURE LIPID PANEL, NONFASTING [SQLIPNF] Order #: [id number] FUTURE cyclobenzaprine (FLEXERIL) 10 mg tabletTake 1 [...] - 3. Body Temperature 97.81 [degF] 05-17-2020 [facility] (48595) Body Temperature 97.9 [degF] 05-08-2020 [facility] (31458) Body weight 89.9 kg 05-17-2020 [facility] (18934) Body weight 93.89 kg 05-08-2020 [facility] (07712) BP Diastolic 82 mm[Hg] 05-17-2020 [facility] (01359) BP Diastolic 76 mm[Hg] 05-08-2020 [facility] (38659) BP Systolic 124 mm[Hg] 05-17-2020 [facility] (05276) BP Systolic 121 mm[Hg] 05-08-2020 [facility] (57452) Height 154.9 cm 05-08-2020 [facility] (96757) Pulse (Heart Rate) 86 /min [facility]85415[facility] Pulse (Heart Rate) 91 /min 05-08-2020 [facility] nghia (49169) Pulse Oximetry 97 % 05-08-2020 [facility] (22221) Respiratory Rate 16 /min [facility]42314[facility] Respiratory Rate 18 /min 05-08-2020 [facility] (71035) Encounters Date Type Reason Provider Location 06-25-2020 - Chart abstracting Postoperative pain Noaman Tanesha [facility] 06-25-2020 [facility] Comment: Refill Request 05-23-2020 - E-mail encounter Isabel Romero) [facility] 05-23-2020 from carer Hugo 03-24-2020 - Emergency Migraine, CORBY Johnston 03-24-2020 department unspecified, not [place] patient visit intractableCORBY (46385) without status [facility] migrainosus CORBY M OLVIN ARIAS UNKNOWN PROVIDER 01-21-2020 - Emergency ANA Johnston 01-21-2020 [facility] ANA ALVARADO ([id number]) JENNIFER ARIAS UNKNOWN PROVIDER 11-25-2019 - Emergency ANA Johnston 11-25-2019 department [facility] al patient visit ANA ALVARADO ([id number]) JENNIFER ARIAS UNKNOWN PROVIDER 10-31-2019 - Emergency Lower abdominal NIKHIL [facility] e 10-31-[facility] NIKHIL Shannon ([id number]) JEAN ARIAS UNKNOWN PROVIDER 04-26-2020 - Letter encounter Johnny Mccall [facility] 04-26-2020 [facility] 05-14-2020 - Orders Only Liver cyst Johnny Mccall [facility]enterolog [facility] 05-14-2020 [facility] Comment: Liver cyst (Primary Dx) 05-11-2020 - Orders Only Idiopathic acute Johnny Mccall [facility] [place] 05-11-2020 pancreatitis Winn Comment: Idiopathic acute pancreatiti s, unspecified complication status (Primary Dx) surgical referral 05-10-2020 - Orders Only Idiopathic acute Johnny Mccall [facility] [place] 05-10-2020 pancreatitis Winn Comment: Idiopathic acute pancreatiti s, unspecified complication status (Primary Dx) 06-05-2020 - Patient encounter Cyst of pancreas Mala [facility] 06-05-2020 procedure [facility] Comment: Pancreatic cyst (Primary Dx) 05-30-2020 - Patient [facility] Provider Adolfo lyle 05-30-2020 encounter procedure 05-24-2020 - Patient Abdominal Johnny Mccall Gastroenterolog y 05-24-2020 encounter bloating [facility] procedure Comment: Bloating (Primary Dx); Nausea and vomiting, intract ability of vomiting not specified, unspecified vomiting type; Diarrhea, unspecified type 05-23-2020 Patient encounter Postoperative pain Isabel Romero) [facility] procedure Arias [place] Comment: RE: Appointment Request 05-17-2020 - Patient encounter Shoulder pain Xr [facility] [place] [facility] 05-17-2020 procedure Kenia (Jaki) Bartolo Bernard (Jaki) Bartolo Comment: Radiology XR Acute pain of right shoulder (Primary Dx) 04-30-2020 - Patient encounter Generalized abdominal Us [facility] Wstr R adiology 04-30-2020 procedure pain Mob 1 Comment: Radiology US 05-30-2020 Results Only [facility]cf Provider [facility] Department 05-08-2020 - Subsequent Generalized Johnny Mccall Ambulatory 05-08-2020 hospital visit by abdominal pain [facility] Surgery physician Comment: Generalized abdominal pain [ R10.84] 06-05-2020 - Telemedicine Mala Almendarez [facility] 06-05-2020 consultation with patient 05-24-2020 - Telemedicine Johnny Mccall [facility] 05-24-2020 consultation with Hannah patient 06-15-2020 - Telephone encounter Local infection Taty (Scoop Operator [facility] 06-15-2020 of wound Can Filler) [facility] SURGERY DEPARTMENT Comment: Multiple Concerns 05-31-2020 - Telephone encounter Johnny Mccall Gastroen terology [place] 05-31-2020 [facility] Comment: Patient Update 05-18-2020 - Telephone Shoulder pain Marcelino Mejia [facility] luke 05-18-2020 encounter [place] Comment: Referral Request 05-07-2020 - Telephone encounter Johnny Mccall Gastroen terology [place] 05-07-2020 [facility] Comment: Patient Update 05-01-2020 - Telephone encounter Johnny Mccall Gastroen terology [place] 05-01-2020 [facility] Comment: Results 04-30-2020 - Telephone encounter Johnny Mccall Gastroen terology [place] 04-30-2020 [facility] Comment: Returning Patient's Call 04-27-2020 - 04-27-2020 Telephone encounter Marcelino Mejia [facility] [place] Comment: Medication request Procedures Procedure Name Date Provider Location Antibody screen 06-11-2020 [facility] ([id number]) Comment: Performed By: #### CBCD1 ### # [place] [address] CARDIAC 05-30-2020 [facility] Provider [facility] (05476) Radex shoulder complete minimum 2 05-17-2020 - Kenia (Jaki) [facility] views 05-17-2020 [facility] (38921) SURGICAL PATHOLOGY 05-08-2020 Johnny Mccall [place] [facility] [place] (59868) Colonoscopy flx dx w/collj spec 05-08-2020 [facility] Provider [facility] when pfrmd (74713) Esophagogastroduodenoscopy 05-08-2020 Ccf Provider [facility] transoral diagnostic (48081) Us abdominal real time w/image 04-30-2020 - Johnny Mccall [facility] limited 04-30-2020 [place] (99520) Urinalysis 10-31-2019 [facility] l (89440) Comment: Result Comment: URINALYSIS Performed By: #### [id number] ## ## [facility],[address] [place] [address] Plan of Treatment Plan Description Date Location DTAP,TDAP,TD (2 - Td) DTAP,TDAP,TD (2 - Td) 05-28-2025 - [facility] 05-28-2025 (23092) INFLUENZA (#1) INFLUENZA (#1) 2020 - [facility] 05-15-2020 (78051) MAMMOGRAM MAMMOGRAM 2019 - [facility] 2019 (62542) COLONOSCOPY COLONOSCOPY 1997 - [facility] 1997 (27803) HEPATITIS C SCREENING HEPATITIS C SCREENING 1997 - [facility] 1997 (88585) HIV SCREENING HIV SCREENING 1997 - [facility] 1997 (61538) COLONOSCOPY - COLONOSCOPY - DIAGNOSTIC 05-08-2020 [facility] DIAGNOSTIC Endoscopy Routine (47762) Generalized abdominal pain Loose stools Dyspepsia Gastroesophageal reflux disease, esophagitis presence not specified Other dysphagia History of acute pancreatitis Bloating Nausea and vomiting, intractability of vomiting not specified, unspecified vomiting type 1 Occurrences starting 05/08/2020 until 05/08/2020 Comment: 1 Occurrences starting 05/08 until 05/08/2020 EGD EUS EGD EUS Endoscopy Routine Idiopathic 05-10-2021 [facility] (00714) acute pancreatitis, unspecified complication status 1 Occurrences starting 05/10/2020 until 05/10/2021 Comment: 1 Occurrences starting 05/10 until 05/10/2021 EGD EGD Endoscopy Routine Generalized abdominal 04-15 [facility] (33807) pain Loose stools Dyspepsia Gastroesophageal reflux disease, esophagitis presence not specified Other dysphagia History of acute pancreatitis Bloating Nausea and vomiting, intractability of vomiting not specified, unspecified vomiting type 1 Occurrences starting 05/08/2020 until 05/08/2020 Comment: 1 Occurrences starting 05/08 until 05/08/2020 MRI ABDOMEN WO/W IVCON MRI ABDOMEN WO/W IVCON 07-05-2021 Cl [facility] (44529) Radiology Routine Pancreatic cyst 1 Occurrences starting 06/05/2020 until 07/05/2021 Comment: 1 Occurrences starting 06/05 until 07/05/2021 PRE-PROCEDURE & PRE-PROCEDURE & 05-10-2021 [facility] PRE-OPERATIVE COVID PRE-OPERATIVE COVID (07428) Microbiology Routine Idiopathic acute pancreatitis, unspecified complication status 1 Occurrences starting 05/10/2020 until 05/10/2021 Comment: 1 Occurrences starting 05/10 until 05/10/2021 SURGICAL PATHOLOGY SURGICAL PATHOLOGY Lab Routine [facility] (92428) 05/08/2020 1:17 PM EDT no information [facility] (01836) Immunizations Vaccine Notes Status Date Location Influenza Seasonal influenza, seasonal, (completed) 05-11-2020 - C [facility] Inj Age 3+ injectable 05-11-2020 (17278) Influenza Seasonal influenza, seasonal, (completed) 05-31-2019 - C [facility] Inj Age 3+ injectable 05-31-2019 (56470) Pneumovax pneumococcal (completed) 05-19-2017 - [facility] c polysaccharide vaccine, 05-19-2017 (441 95) 23 valent Tdap (Age 7+) tetanus toxoid, reduced (completed) 05-28-2015 - [facility] diphtheria toxoid, and 05-28-2015 (4419 5) acellular pertussis vaccine, adsorbed Payers Payer Name Policy Number Location [facility] [id number] [facility] OUTPATIENT (36126) [place] [employer] [id number] [facility] ([id number] [id number]) [id number] [facility] (69926) [id number] [facility] (03704) [id number] [facility] (85459) [id number] [facility] (25395) The following information is from the original human readable contentNo Payer Records FoundNo Payer Records FoundNo Payer Records FoundNo Payer Records FoundNo Payer Records FoundNo Payer Records FoundNo Payer Records FoundNo Payer Records FoundNo Payer Records Found Social History Type Social History Date Location Description History of tobacco use Current smoker 01-12-2017 [facility] (56396) Alcohol Comment Occasional 11-26-2010 - [facility] 11-26-2010 (46414) History of tobacco use Cigarette Smoker 01-12-2017 [facility] (63443) Cigarettes smoked 05-17-2020 - [place] [facility] current (pack per day) 06-08-2020 (56257) - Reported Tobacco use and Never used 05-17-2020 - [facility] exposure 06-08-2020 (30311) Alcohol intake Current drinker of 05-17-2020 - [place] [facility] alcohol (finding) 06-08-2020 (10986) Tobacco Comment Approx. 3 cigarettes 03-10-2011 - [place] [facility] daily-1 pack every week 03-10-2011 (76686) Tobacco smoking status Former smoker 05-17-2020 - [facility] NHIS 06-08-2020 (46531) Sex Assigned At Not on file [facility] (74157) Exposure to SARS-CoV-2 Not sure [facility] (event) (38805) History SDOH Financial 5 06-08-2020 - [facility] 06-08-2020 (42303) History SDOH Food Worry 1 06-08-2020 - [facility] 06-08-2020 (12865) History SDOH Transport 2 06-08-2020 - [facility] Med 06-08-2020 (77845) Exposure to SARS-CoV-2 Yes [facility] (event) (08065) The following information is from the original [...] [place] MD documented in this encounterKenia Mcfarland (Can Filler) - 05/17/2020 11:57 AM EDT Visit Date: May 17, 2020 Patient Name: Ms.Nichole Jeana Mcgregor Date of : 1980 MRN/E #: [id number] Chief Complaint Patient presents with: right shoulder [...] history is provided by the patient. No smog technician was used. PAIN EVALUATION 05/17/2020 1153 Pain [...] Benign liver cyst 05/24/2010 CT scan at [facility] 11/2009 and 04/2010 showe 4 mm increase in size. No pain. No elevated LFTs on 03/11/2010. ? Calculus of kidney 05/17/[address] Nicolas: Hospitalized age 20, and again later -- no procedures so far ([facility], [facility]) ? Dysmenorrhea ? History of blood transfusion [...] go to the ED. Patient went to [place] ED and mentions 'nothing was done. They [...] note she presented to the ED in [place] in January 2020 for abdominal pain of [address] abdomen was essentially unremarkable including pancreas. Was found to have lipase of 193 on 02/15/2020. Amylase normal. Hepatic function panel. ? Has h/o cholecystectomy in 1998. PAST MEDICAL HISTORY Diagnosis Date ? Allergic rhinitis, cause unspecified 05/17/2008 Spring and summer ? Benign liver cyst 05/24/2010 CT scan at [facility] 11/2009 and 04/2010 showe 4 mm increase in size. No pain. No elevated LFTs on 03/11/2010. ? Calculus of kidney 05/17/[address] Nicolas: Hospitalized age 20, and again later -- no procedures so far ([facility] [facility]) ? Cancer (HCC) ? Diverticulosis ? Dysmenorrhea [...] removed ? TOTAL ABDOM HYSTERECTOMY 08/31/06 Hysterectomy, [facility] FAMILY HISTORY Problem Relation Age of Onset [...] the ED yesterday - she went to [place] ED and was told that pancreas levels [...] for nausea. Advised to go to the [facility] ED if no improvement in symptoms. 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 Explanati on Advance Directive(s) 05/08/2020 12:13 PM Advance Directive(s) 05/25/2020 7:47 AM Documents on File Type Date Recorded 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 Explanati on Advance Directive(s) 05/08/2020 12:13 PM Advance Directive(s) 05/25/2020 7:47 AM Advance Directive(s) 06/08/2020 9:30 AM Documents on File Type Date Recorded 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 Explanati on Advance Directive(s) 05/08/2020 12:13 PM Advance Directive(s) 05/25/2020 7:47 AM Advance Directive(s) 06/08/2020 9:30 AM Documents on File Type Date Recorded 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 Explanati on Advance Directive(s) 05/08/2020 12:13 PM [...] NEW PATIENT VISIT LEVEL 5 Mccall [address] [facility] [address] [place], [place] [id number] Phone: Fax: Status Reason Specialty Diagnoses / Referred By Referred To Procedures Contact Contact Authorized PCP Requested Orthopedics Diagnoses Acute shoulder pain, unspecified laterality Marcelino Mejia Referral Procedures CONSULT TO ORTHOPAEDICS NEW PATIENT VISIT LEVEL 5 [address] [place] [address] Status Reason Specialty Diagnoses / Referred By Referred To Procedures Contact Contact Pending Review Auto-Generated MR IMAGING Diagnoses Pancreatic cyst Mala Almendarez Mr Imaging Referral Procedures MRI ABDOMEN WO/W IVCON MRI,ABDOMEN,W&WO CONTRS [address] [address] Status Reason Specialty Diagnoses / Procedures Referred By C ryan Referred To Contact Closed Diagnoses Post-op pain Mala Almendarez [address] [address] Phone: Instructions Patient InstructionsKenia Mcfarland) - 05/17/2020 [...] BE BASED ON THE PRIMARY CLINICAL RECORDS. [facility] provides no warranty or guarantee of the accuracy or completeness of information in this document. UNRECOGNIZED CONTENT PROVIDED BELOW FOR UNRECOGNIZED SECTION Source Comments In the event this information is protected by the Federal Confidentiality of Alcohol and Drug Abuse Patient Records regulations: The Federal rules restrict any use of the information to criminally investigate or prosecute any alcohol or drug abuse patient.[facility] Healthcare[facility] the event this information is protected by the Federal Confidentiality of Alcohol and Drug Abuse Patient Records regulations: The Federal rules restrict any use of the information to criminally investigate or prosecute any alcohol or drug abuse patient.[facility] HealthcareIn the event this information is protected by the Federal Confidentiality of Alcohol and Drug Abuse Patient Records regulations: The Federal rules restrict any use of the information to criminally investigate or prosecute any alcohol or drug abuse patient.[facility] HealthcareIn the event this information is protected by the Federal Confidentiality of Alcohol and Drug Abuse Patient Records regulations: The Federal rules restrict any use of the information to criminally investigate or prosecute any alcohol or drug abuse patient.[facility] HealthcareIn the event this information is protected by the Federal Confidentiality of Alcohol and Drug Abuse Patient Records regulations: The Federal rules restrict any use of the information to criminally investigate or prosecute any alcohol or drug abuse patient.[facility] HealthcareIn the event this information is protected by the Federal Confidentiality of Alcohol and Drug Abuse Patient Records regulations: The Federal rules restrict any use of the information to criminally investigate or prosecute any alcohol or drug abuse patient.[facility] HealthcareIn the event this information is protected by the Federal Confidentiality of Alcohol and Drug Abuse Patient Records regulations: The Federal rules restrict any use of the information to criminally investigate or prosecute any alcohol or drug abuse patient.[facility] HealthcareIn the event this information is protected by the Federal Confidentiality of Alcohol and Drug Abuse Patient Records regulations: The Federal rules restrict any use of the information to criminally investigate or prosecute any alcohol or drug abuse patient.[facility] HealthcareIn the event this information is protected by the Federal Confidentiality of Alcohol and Drug Abuse Patient Records regulations: The Federal rules restrict any use of the information to criminally investigate or prosecute any alcohol or drug abuse patient.[facility] HealthcareIn the event this information is protected by [...] or prosecute any alcohol or drug abuse patient.[facility] HealthcareIn the event this information is protected by the Federal Confidentiality of Alcohol and Drug Abuse Patient Records regulations: The Federal rules restrict any use of the information to criminally investigate or prosecute any alcohol or drug abuse patient.[facility] HealthcareIn the event this information is protected by the Federal Confidentiality of Alcohol and Drug Abuse Patient Records regulations: The Federal rules restrict any use of the information to criminally investigate or prosecute any alcohol or drug abuse patient.[facility] HealthcareIn the event this information is protected by the Federal Confidentiality of Alcohol and Drug Abuse Patient Records regulations: The Federal rules restrict any use of the information to criminally investigate or prosecute any alcohol or drug abuse patient.[facility] HealthcareIn the event this information is protected by the Federal Confidentiality of Alcohol and Drug Abuse Patient Records regulations: The Federal rules restrict any use of the information to criminally investigate or prosecute any alcohol or drug abuse patient.[facility] HealthcareIn the event this information is protected by the Federal Confidentiality of Alcohol and Drug Abuse Patient Records regulations: The Federal rules restrict any use of the information to criminally investigate or prosecute any alcohol or drug abuse patient.[facility] HealthcareIn the event this information is protected by the Federal Confidentiality of Alcohol and Drug Abuse Patient Records regulations: The Federal rules restrict any use of the information to criminally investigate or prosecute any alcohol or drug abuse patient.[facility] HealthcareIn the event this information is protected by the Federal Confidentiality of Alcohol and Drug Abuse Patient Records regulations: The Federal rules restrict any use of the information to criminally investigate or prosecute any alcohol or drug abuse patient.[facility] HealthcareIn the event this information is protected by the Federal Confidentiality of Alcohol and Drug Abuse Patient Records regulations: The Federal rules restrict any use of the information to criminally investigate or prosecute any alcohol or drug abuse patient.[facility] HealthcareIn the event this information is protected by the Federal Confidentiality of Alcohol and Drug Abuse Patient Records regulations: The Federal rules restrict any use of the information to criminally investigate or prosecute any alcohol or drug abuse patient.[facility] HealthcareIn the event this information is protected by the Federal Confidentiality of Alcohol and Drug Abuse Patient Records regulations: The Federal rules restrict any use of the information to criminally investigate or prosecute any alcohol or drug abuse patient.[facility] HealthcareIn the event this information is protected by the Federal Confidentiality of Alcohol and Drug Abuse Patient Records regulations: The Federal rules restrict any use of the information to criminally investigate or prosecute any alcohol or drug abuse patient.[facility] HealthcareIn the event this information is protected by the Federal Confidentiality of Alcohol and Drug Abuse Patient Records regulations: The Federal rules restrict any use of the information to criminally investigate or prosecute any alcohol or drug abuse patient.[facility] UNRECOGNIZED CONTENT PROVIDED BELOW FOR UNRECOGNIZED SECTION [...] dyspepsia,gerd,dysphagia 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, 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 have a goat driver Johnny Winn [facility] ENDOSCOPY Procedures COLONOSCOP W/ OR W/O [facility] SPEC EGD W/O OR W/BRUSH/WASH COLONOSCOPY W/EGD [facility] [address] [place], [place] [address] Phone: [place], [place] [phone] Fax: Reason Onset Date Comments Patient [...] DATE CREATED AUTHOR AUTHOR'S ORGANIZATIO N 10/21/2019 [facility] DATE CREATED AUTHOR AUTHOR'S ORGANIZATIO N 04/06/2020 [facility] DATE CREATED AUTHOR AUTHOR'S ORGANIZATIO N 02/26/2020 [facility] ([place]) DATE CREATED AUTHOR AUTHOR'S ORGANIZATIO N 06/11/2020 [facility] DATE CREATED AUTHOR AUTHOR'S ORGANIZATIO N 06/21/2020 [facility] DATE CREATED AUTHOR AUTHOR'S ORGANIZATIO N 06/26/2020 [facility] UNRECOGNIZED CONTENT PROVIDED BELOW FOR UNRECOGNIZED SECTION [...] pcp would send Rx for phenergan to [facility]. Reports she's had nausea for weeks. Saw GI yesterday, and has scheduled an EGD and colonoscopy. Reports the GI specialist tells her there is something wrong with her digestive system. documented in this encounterTelephone Encounter - Pierce Barber Ma - 04/30/2020 12:15 PM EDT Tried to return call, voicemaill full Pierce Barber MA documented in this encounterTelephone Encounter - Pierce Barber Ma - 05/01/2020 3:46 PM EDTTried to call patient voicemail is full. Also noted celiac panel was not drawn, left message with [facility] to contact patient for redraw Pierce [...] or do not improve. Taty Perea APRN, [employer] HELPER documented in this encounter UNRECOGNIZED CONTENT PROVIDED [...]
--- OUTSIDE RECORDS SUMMARY | 2020-06-26 15:02 | XMS RPT_ITS | CCD ---
:1980 External Reference #:[id number] Author Organization [facility] Care Team Providers Name Role Phone [...] Cephalexin Itching 10-20-2019 - [facility] ([id number]) Chlorhexidine Rash 10-29-2016 - [facility] (92319) CONTRAST MEDIA, Moderate Mello Pomeren e IODINE RELATED ([facility]) Repository (Qualifier Value) Ibuprofen GI Upset Low 06-18-2016 - [facility] (86207) Ibuprofen Moderate [facility] ([facility]) Repository (Qualifier Value) Iodine Shortness of Breath Low 05-17-2008 - [facility] (17257) Ketorolac Moderate [facility] ([facility]) Repository (Qualifier Value) Ketorolac Rash 05-25-2020 - [facility] (88111) metroNIDAZOLE Moderate [facility] ([facility]) Repository (Qualifier Value) Penicillins [facility]476[facility] Penicillins Moderate [facility] ([facility]) Repository (Qualifier Value) predniSONE Other: See Comments Low [facility] (28215) Promethazine Moderate [facility] ([facility]) Repository (Qualifier Value) Salicylic Acid Other: See Comments Low 01-27-2011 - [facility] (85542) traMADol Rash 05-25-2020 - [facility] (66286) Medications Medication Name Sig Date Prescriber Location Albuterol albuterol HFA (VENTOLIN [facility] Provider [facility] (02714) HFA) 90 mcg/actuation inhaler Inhale 2 Puffs as instructed every 4 hours as needed. 0 Active Comment: Inhale 2 Puffs as instructed every 4 hours as needed. Bifidobacterium Bifidobacterium 04-26-2020 - Johnny [facility] Infantis Infantis (ALIGN) 4 mg 07-25-2020 [facility] (16581) cap Take 1 capsule by mouth once daily. 30 capsule 2 04/26/2020 07/25/2020 Active Comment: Take 1 capsule by mouth once daily. Clindamycin clindamycin (CLEOCIN) 06-15-2020 - Jonh (Res) [facility] 300 mg capsule 06-26-2020 [facility] (38919) Indications: Incisional infection Take 1 capsule by mouth four times daily for 5 days. 20 capsule 0 06/21/2020 06/26/2020 Active Comment: Take 1 capsule by mouth four times daily for 5 days. diazePAM diazePAM (VALIUM) 5 mg 06-05-2020 [facility] tablet Indications: 06-07-2020 Mala [facility] (29533) Pancreatic cyst Take 1 tablet by mouth once daily for 2 days. 2 tablet 0 06/05/2020 06/07/2020 Active Comment: Take 1 tablet by mouth once daily for 2 days. Dicyclomine dicyclomine (BENTYL) 04-26-2020 - Johnny Mccall [facility] 10 mg capsule Take 1 05-24-2020 [facility] (60294) capsule by mouth before meals and at bedtime. Use as directed 90 capsule 1 04/26/2020 05/24/2020 Discontinued Comment: Take 1 capsule by mouth befo re meals and at bedtime. Use as directed diphenhydrAMINE diphenhydrAMINE (BENADRYL) 03-29-2019 [facility] Provide r [facility] 25 mg capsule Take 50 mg (44 195) by mouth every 6 hours as needed. 0 03/29/2019 Active Comment: Take 50 mg by mouth every 6 hours as needed. Docusate docusate sodium 06-21-2020 Jonh (Res) [facility] (COLACE) 100 mg capsule Bertke (441 95) Take 1 capsule by mouth twice daily. 60 capsule 0 06/21/2020 Active Comment: Take 1 capsule by mouth twic e daily. Estradiol estradiol (ESTRACE) 2 mg 03-23-2020 [facility] Provider [facility] (40416) tablet Take 2 mg by mouth once daily. 0 03/23/2020 Active Comment: Take 2 mg by mouth once kehinde y. HYDROmorphone HYDROmorphone 06-12-2020 - Mala Almendarez [facility] nghia (HYDROMORPHONE) 2 mg 06-19-2020 (27078) tablet Indications: Post-op pain Take 1 tablet by mouth every 3 hours as needed for Pain for up to 7 days. 40 tablet 0 06/12/2020 06/19/2020 Active Comment: Take 1 tablet by mouth every 3 hours as needed for Pain for up to 7 days. Hyoscyamine hyoscyamine (LEVSIN) 05-24-2020 Johnny Mccall [facility] 0.125 mg tablet Take 1 [facility] (4419 5) tablet by mouth every 6 hours as needed. 60 tablet 1 05/24/2020 Active Comment: Take 1 tablet by mouth every 6 hours as needed. iv contrast (will iv contrast (will be 06-05-2020 - Mala Almendarez [facility] be provided with provided with 06-06-2020 Mala Almendarez (94094) radiology test) radiology test) MRI ABDOMEN Inject, [...] metroNIDAZOLE metroNIDAZOLE (FLAGYL) 04-26-2020 - Johnny Mccall [facility] 500 mg tablet Take 1 05-03-2020 [facility] (67418) tablet by mouth three times daily for 7 days. 21 tablet 0 04/26/2020 05/03/2020 Active Comment: Take 1 tablet by mouth three times daily for 7 days. Naloxone naloxone 4 mg/actuation 06-21-2020 Jonh (Res) [facility] nasal spray (NARCAN) Use Chad (50 195) 1 spray in one nostril as [...] oxyCODONE IR 06-21-2020 - Maria Luisa Trejo [facility] (ROXICODONE) 5 mg 06-26-2020 (51955) immediate release tablet Indications: Benign liver cyst Take 1 tablet by mouth every 8 hours as needed for up to 5 days. 15 tablet 0 06/21/2020 06/26/2020 Active oxyCODONE IR 05-29-2020 - Sorin (Res) [facility] (ROXICODONE) 5 mg 06-03-2020 Al[facility]al[facility] (33898) immediate release tablet Indications: Intractable nausea and [...] [facility] (PROTONIX) 40 mg 04-30-2020 [facility] (95356) tablet Take 1 tablet by mouth daily before breakfast. Take on empty stomach, 1/2 hr before meal. 30 tablet 3 04/30/2020 Active Comment: Take 1 tablet by mouth daily before breakfast. Take on empty stomach, 1/2 hr before meal. POLYETHYLENE GLYCOL polyethylene glycol 06-21-2020 - [place] (Res ) [place] 3350 3350 (MIRALAX) 17 07-22-2020 [facility] (44 195) gram/dose powder Dissolve 1 packet in 4-8 ounces of liquid and drink by mouth once daily as directed. 476 g 0 06/21/2020 07/22/2020 Active Comment: Dissolve 1 packet in 4-8 oun simi of liquid and drink by mouth once daily as directed. POLYETHYLENE GLYCOL peg 3350-Electrolytes 04-26-2020 - Johnny Mccall [place] 3350 / Potassium (GOLYTELY) 04-26-2020 [facility] (441 95) Chloride / Sodium [phone] -5.86 Johnny Mccall Bicarbonate / gram suspension [facility] Sodium Chloride / Indications: sodium [...] 1 mg cap Take 1 [facility] Provider [facility] (35689) mg by mouth daily at bedtime. 0 Active Comment: Take 1 mg by mouth daily at bedtime. pregabalin pregabalin (LYRICA) 06-25-2020 - Mala oliver [facility] 300 mg capsule 07-09-2020 Mala Almendarez (81226) Indications: Post-op pain Take 1 capsule by mouth twice daily for 14 days. 28 capsule 0 06/25/2020 07/09/2020 Active Comment: Take 1 capsule by mouth twic e daily for 14 days. Promethazine promethazine (PHENERGAN) 05-24-2020 Johnny [facility] 25 mg tablet Take 1 [facility] (87400) tablet by mouth every 8 hours as needed (for nausea). 10 tablet 0 05/24/2020 Active Comment: Take 1 tablet by mouth every 8 hours as needed (for nausea). QUEtiapine QUEtiapine (SEROQUEL) 02-23-2020 Marcelino Mejia [facility] 100 mg tablet Take 1 (98117) tablet by mouth once daily. 0 02/23/2020 Active Comment: Take 1 tablet by mouth once daily. Sertraline sertraline (ZOLOFT) 100 02-23-2020 Marcelino Ferreira [facility] mg tablet Take 1 tablet (441 95) by mouth once daily. 0 02/23/2020 Active Comment: Take 1 tablet by mouth once daily. Sucralfate sucralfate (CARAFATE) 1 05-24-2020 Johnny Mccall Naya [facility] gram tablet Take 1 (32825) tablet by mouth four times daily. 30 tablet 0 05/24/2020 Active Comment: Take 1 tablet by mouth four times daily. Problems Active Problems Category Problem Name Status Date Location Abdominal pain Lower abdominal pain, Active 10-31-2019 - [facility] Anxiety disorders Generalized anxiety Active 03-31-2016 - [facility] disorder (65541) Esophageal disorders Gastroesophageal reflux Active [facility] disease (15576) Headache; including Migraine without aura Active 05-17-2008 - [facility] migraine [facility] (94050) Mood disorders Reactive depression Active 03-31-2016 - [facility] (situational) (31232) Nausea and vomiting Nausea and vomiting Active 05-25-2020 - [facility] (59034) Other disorders of Indigestion Active [facility] stomach and duodenum (25760) Other gastrointestinal Diarrhea Active [facility] disorders (02076) Other gastrointestinal Loose stool Active [facility] disorders (83259) Other gastrointestinal Abdominal bloating Active [facility] disorders (84395) Other gastrointestinal Dysphagia Active [facility] disorders (04235) Other gastrointestinal Personal history of Active [facility] disorders other diseases of the (73407 ) digestive system Other infections; Local infection of wound Active [facility] including parasitic (25667) Other liver diseases Liver cyst Active 05-24-2010 - [facility] (44732) Other nervous system Postoperative pain Active 06-19-2020 - [facility] disorders (45429) Other nervous system Chronic pain syndrome Active 06-06-2020 - [facility] disorders (42433) Other non-traumatic joint Shoulder pain Active [facility] disorders (28902) Other upper respiratory Allergic rhinitis Active 05-17-2008 - [facility] disease (96561) Pancreatic disorders (not Idiopathic acute Active [facility] diabetes) pancreatitis (22570) Paralysis Weakness of right leg Active 02-23-2017 - [facility] (87978) Substance-related Smoker Active 05-17-2008 - Mello Pomer willem disorders [facility] (54736) Unclassified Patient encounter status Active 05-17-2008 - [facility] (81970) Past or Other Problems Category Problem Name Status Date Location Allergic reactions Allergy status to Completed 10-31-2019 - Mello Pomerene narcotic agent status [facility] (59830) Blindness and vision Blurring of visual Completed 02-23-2017 - [facility] defects image (90819) Calculus of urinary Kidney stone Completed 05-17-2008 - [facility] tract (19098) Diabetes mellitus Impaired fasting Completed 05-17-2008 - [facility] without complication glycaemia (98931) Miscellaneous mental Adjustment insomnia Completed 03-31-2016 - [facility] health disorders (59299) Other connective tissue Muscle weakness of Completed 02-23-2017 - [facility] disease upper limb (98536) Other connective tissue Trochanteric bursitis Completed 06-18-20 - [facility] disease (87764) Other diseases of Hydroureter Completed 02-05-2017 - [facility] kidney and ureters (29555) Other diseases of Hydronephrosis Completed 02-05-2017 - [facility] kidney and ureters (20396) Other lower respiratory Multiple nodules of Completed 01-22-2020 - [facility] disease lung (82843) Other nervous system Numbness of lower limb Completed 02-23-2017 - [facility] disorders (20583) Other nervous system Numbness of upper limb Completed 02-23-2017 - [facility] disorders (67369) Other nervous system Numbness of face Completed 02-23-2017 - [facility] disorders (28760) Other non-traumatic Hip pain Completed 06-18-2016 - [facility] joint disorders (47015) Other screening for MRI of lumbar spine Completed 02-23-2017 - [facility] suspected conditions abnormal (64107) (not mental disorders or infectious disease) Ovarian cyst Cyst of ovary Completed 07-15-2012 - [facility] (20912) Residual codes; Acquired absence of Completed 10-31-2019 - [facility] unclassified both cervix and uterus [facility] (85444) Residual codes; Acquired absence of Completed 10-31-2019 - [facility] unclassified other specified parts [facility] of digestive tract (21813) Residual codes; FH: Diabetes mellitus Completed 05-17-2008 - [facility] unclassified (67506) Spondylosis; Low back pain Completed 06-18-2016 - [facility] intervertebral disc (30588) disorders; other back problems Results Result Name Value Range Unit Interpretation Flag Date Location obsolete on 2020-06 OBSOLETE Refill ([facility]) Normal 06-25-2020 [facility] SALLY MCGREGOR ([id number]) 1980 F Medical Date Time Provider Department Center 06/25/20 MALA ALMENDAREZ [facility] ([id number]) During your visit today, we recorded the [...] 06/25/20 progress on 2020-06 PROGRESS HNO ID: [id number] Normal 06-21-2020 Milka Dumont Author: Maria Luisa [facility] Service: Pain Management (06012) Author Type: Physician Type: Progress Notes Filed: [...] Approx. 3 cigarettes daily-1 pack every w paimiut Substance Use Topics - Alcohol use: Yes [...] and migraine headache. She was referred to [place] pain management but was unable to go [...] pain. Small quantity oxycodone prescription sent to [facility] Maria Luisa Trejo MD plan of care on PLAN OF CARE HNO ID: [id number] Normal 06-21-20 [facility] Author: Rhonda Holman (Pharmacist) Center (85801) Service: Pharmacy Author Type: Pharmacist Type: Plan [...] PHARMACIST June 21, 2020 11:55 AM Pager: [phone] 06/21/2020 11:55 AM Medication List START taking [...] Your Medications These medications were sent to [facility] [address] [place], [place] [id number] Hours: Thursday-Thursday, 8am-6:30pm ? clindamycin 300 mg capsule ? docusate sodium 100 mg capsule ? naloxone 4 mg/actuation nasal spray ? oxyCODONE IR 5 mg immediate release tablet ? polyethylene glycol 3350 17 gram/dose powder nursing prog on NURSING HNO ID: [id number] Normal 06-21-2020 [place] [facility] Author: iSlvia Naranjo) VIN Gomez General Service: ? Medical Author Type: Registered Nurse Center Type: Nursing Progress Note ([id number]) Filed: 06/20/2020 11:32 PM Note Text: Nursing Progress Note Patient Name: Sally Mcgregor Patient Location: [id number] Pt has been eating better and was told by the doctor that wh en her intake improved the fluids could be discontinued. Pt does not want fluids to continue so RN stopped fluids on pt's request. Doctor note i ndicated what the pt said. This note was completed by: Silvia Gomez RN progress on 2020-06 PROGRESS HNO ID: [id number] Normal 06-20-2020 [facility] [place] Author: Jonh Urrutia DO General Service: General Surgery Medical Author Type: Resident Center Type: Progress Notes ([id number]) Filed: 06/20/2020 8:38 AM Note Text: Attestation signed by Mala Almendarez at 06/20/2020 2:18 PM I saw and evaluated the patient. Discussed with the reside nt and agree with resident's findings and plan as documented in the resident's note. [facility] General Surgery Progress Note SERVICE DATE: 06/20/2020 [facility] Service Pager: For questions or concerns Mon-Fri 6a-5p please page [phone]. After 5pm and on Weekends and Holidays, please page [phone]. SUBJECTIVE: Doing better this morning. Says pain [...] - enteric contrast (radiology procedure) ORAL DIRECTED [facility] N - oxyCODONE IR 5-10 mg tab(s) [...] questions or concerns Mon-Fri 6a-5p please page [phone]. After 5pm and on Weekends and Holidays, please page [phone] if in ICU or [phone] if on RNF. plan of care on PLAN OF CARE HNO ID: [id number] Normal 06-20-20 20 [facility] Medical Author: Nancy Abebe [employer] ([id number]) Service: General Surgery Author Type: Resident Type: [...] history physical on 2020-06-20 HISTORY HNO ID: [id number] Normal 06-20-2020 [place] PHYSICAL Author: Nancy Aebbe [facility] Service: General Surgery Medical Author Type: Resident Center Type: HAND ([id number]) Filed: 06/19/2020 11:38 PM Note Text: Attestation signed by Mala Almendarez at 06/20/2020 2:18 PM Attending Note I personally saw and examined the patient. I reviewed the resident's note. I agree with the resident's assessment and plan with the [facility] revisions and/or additions: CT scan reviewed. Will [...] get worse. She was se nt to [facility] ED, where she was given IV Dilauded and transferred here to [facility]. Pt reports that she is urinating, passing flatus and BMs. No N/ V. No fevers or chills. Last PO was at 1300h. Pt has a h/o multiple abd surgeries. Reformed smoker x5 anai hs. FUNCTIONAL STATUS: Independent PAST MEDICAL HISTORY Diagnosis Date - Allergic rhinitis, cause unspecified 05/17/2008 Spring and summer - Benign liver cyst 05/24/2010 CT scan at [facility] 11/2009 and 04/2010 showe 4 mm increase in size . No pain. No elevated LFTs on 03/11/2010. - Calculus of kidney 05/17/[address] Nicolas: Hospitalized age 20, and again later -- no procedures so far [facility]) - Cancer (HCC) - Diverticulosis - [...] Approx. 3 cigarettes daily-1 pack every w paimiut Substance Use Topics - Alcohol use: Yes [...] oz (86.0kg) SpO2 100% LMP 08/10/2006 B [facility] 35.84 kg/(m2). O2 Therapy: Room Air DATA: [...] DATE OF EXAM: Jun 20 2020 11:59AM [facility] 0530 - CT ABD/PEL W IVCON / (65311) PROCEDURE REASON: Abd pain, unspecified Physician Interpretation [...] ed portions of the heart are unremarkable. Networking Administrator (topogram) images: No additional findings. IMPRESSION: 1. Postsurgical changes in the posterior right hepatic dome with residual 8.3 cm cystic cavity with trace likely postsurgical gas, but no peripheral enhancement to suggest acute inflammation. 2. Other hepatic cyst are unchanged. 3. No acute intra-abdominal or pelvic findings. Stacker: HERMINIO Transcribe Date/Time: Jun 20 2020 12:16P Dictated by : NILAM OVIEDO MD This examination was interpreted and the report reviewed and electronically signed by: NILAM OVIEDO MD on Jun 20 2020 12:28PM EST consult on CONSULT HNO ID: [id number] Normal 06-20-2020 [facility] Author: [facility] Service: Pain Management (58664) Author Type: Physician Type: Consults Filed: 06/20/2020 [...] - enteric contrast (radiology procedure) ORAL DIRECTED [facility] N Kaushal (Res) DO Grupo - oxyCODONE [...] hydrocortisone sodium succinate (PF) 200 mg injection (Lelsie u-CORTEF) 200 mg INTRAVENOUS q 6 H [...] Approx. 3 cigarettes daily-1 pack every w paimiut Substance Use Topics - Alcohol use: Yes [...] and migraine headache. She was referred to [place] pain management but was unable to go [...] health on 03-07-07 [facility] HNO ID: [id number] Normal 020 [facility] Author: Holly PickardRt) [facility] Service: Radiology ( 90242) Author Type: Plastic Molder Type: Allied Health Filed: 06/20/2020 12:04 PM [...] unstable renal function, e.g. those with ac [place] kidney injury, the eGFR may not accurately reflect actual GFR. eGFR- Date Value Ref Range Status 06/19/2020 >60 Final 02/15/2020 >60 Final P.O.C.T. RESULTS: N/A June 20, 2020 TREATMENT: N/A and No Hydration needed. PERIPHERAL IV DATA: Inpatient - refer to [facility] documentation RADIOLOGY DEPARTMENT: CT; Exam(s) Completed: Abdomen/Pelvis SIGNATURE: RT Jada PATIENT NAME: Sally caldwell DATE: June 20, 2020 TIME: 11:59 AM comp metab 1999 pnl serpl on 2020-06-19 Albumin [Mass/Vol] 4.3 3.9-4.9 g/dL Normal 06-19-2020 [facility] (28769) Comment: Order Comment: Specimen Type : BLOOD SPECIMEN Performed By: #### 14436-5 # ###[facility] LABORATORYCLIA [id number] [place] [address] ALP [Catalytic activity/Vol] 110 34-123 U/L Normal 1 0-06-2020 [facility] (00 000) Comment: Order Comment: Specimen Type : BLOOD SPECIMEN Performed By: #### 53171-0 # ###[facility]ORYCLIA [id number] [place] [address] ALT With P-5'-P [Catalytic 16 7-38 U/L Normal [facility] Medical activity/Vol] [employer] (54732) Comment: Order Comment: Specimen Type : BLOOD SPECIMEN Performed By: #### 94679-8 # ###[facility]ORYCLIA [id number] [place] [address] Anion gap [Moles/Vol] 13 9-18 mmol/L Normal 06-19-20 20 [facility] (06926) Comment: Order Comment: Specimen Type : BLOOD SPECIMEN Performed By: #### 13034-1 # ###[facility]ATORYCLIA [id number] [place] [address] AST With P-5'-P [Catalytic 19 13-35 U/L Normal [facility] activity/Vol] [employer] (22509) Comment: Order Comment: Specimen Type : BLOOD SPECIMEN Performed By: #### 57759-7 # ###[facility]ATORYCLIA [id number] [place] [address] Bilirubin [Mass/Vol] 0.2 0.2-1.3 mg/dL Normal 0 [facility] (50888) Comment: Order Comment: Specimen Type : BLOOD SPECIMEN Performed By: #### 00497-0 # ###[facility]ORYCLIA [id number] [place] [address] Calcium [Mass/Vol] 9.1 8.5-10.2 mg/dL Normal 06-19-2020 [facility] (37586) Comment: Order Comment: Specimen Type : BLOOD SPECIMEN Performed By: #### 33369-2 # ###[facility]ATORYCLIA [id number] [place] [address] Chloride [Moles/Vol] 102 97-105 mmol/L Normal 0 [facility] (24190) Comment: Order Comment: Specimen Type : BLOOD SPECIMEN Performed By: #### 89429-5 # ###[facility] LABORATORYCLIA [id number] [place] [place] [address] CO2 [Moles/Vol] 22 22-30 mmol/L Normal 06-19-2020 [facility] (19588) Comment: Order Comment: Specimen Type : BLOOD SPECIMEN Performed By: #### 94242-6 # ###[facility] LABORATORYCLIA [id number] [place] [place] [address] Creatinine [Mass/Vol] 0.88 0.58-0.96 mg/dL Normal 06-19-20 20 [facility] (00 000) Comment: Order Comment: Specimen Type : BLOOD SPECIMEN Performed By: #### 05414-4 # ###[facility] LABORATORYCLIA [id number] [place] [place] [address] GFR/1.73 sq M.predicted >60 mL/min/{1.73_m2} Normal 06-19-2020 [facility] MDRD (S/P/Bld) [[facility] rate/Area] (50604) Comment: Order Comment: Specimen Type : BLOOD SPECIMEN Result Comment: >60 eGFR (Estimated GFR) Units o f measure: mL/min/1.73 meters squared eGFR is derived from the ree xpressed MDRD Study equation using the following parameters: serum creatinine, age, gender and race. The creatinine assay has been calibrated to be traceable to IDHI. An eGFR <60 mL/min/1.73m2 for >3 mo nths is consistent with chronic kidney disease. Refer to KDOQI guidelines for clinical interpretation. In patients with unstable renal function, e.g. those with acute k idney injury, the eGFR may n ot accurately reflect actual GFR. Performed By: #### 73935-5 # ###[facility] LABORATORYCLIA [id number] [place] [place] [address] Glucose [Mass/Vol] 100 74-99 mg/dL High 06-19-2020 [facility] (79202) Comment: Order Comment: Specimen Type : BLOOD SPECIMEN Result Comment: The [place] [employer] (ADA) provides guidance for cutoff [...] for diagnosis of diabetes. Reference: Standards of [facility] Care in Diabetes 2016, [place] [employer]. Diabetes Care. 2016.39(Suppl 1). Performed By: #### 81762-7 # ###[facility] LABORATORYCLIA [id number] [place] [address] Potassium [Moles/Vol] 3.8 3.7-5.1 mmol/L Normal 06-19-20 20 [facility] (00 000) Comment: Order Comment: Specimen Type : BLOOD SPECIMEN Performed By: #### 34470-2 # ###[facility] LABORATORYCLIA [id number] [place] [address] Protein [Mass/Vol] 7.7 6.3-8.0 g/dL Normal 06-19-2020 [facility] (66494) Comment: Order Comment: Specimen Type : BLOOD SPECIMEN Performed By: #### 36950-0 # ###[facility] LABORATORYCLIA [id number] [place] [address] Sodium [Moles/Vol] 137 136-144 mmol/L Normal 06-19-2020 [facility] (75569) Comment: Order Comment: Specimen Type : BLOOD SPECIMEN Performed By: #### 65175-8 # ###[facility] LABORATORYCLIA [id number] [place] [address] Urea nitrogen [Mass/Vol] 14 7-21 mg/dL Normal 06-19 [facility] (43103) Comment: Order Comment: Specimen Type : BLOOD SPECIMEN Performed By: #### 25768-9 # ###[facility] LABORATORYCLIA [id number] [place] [address] cbc w auto diff bld on 2020-06-19 Basophils (Bld) [#/Vol] 0.08 <0.11 k/uL Normal 2019 [facility] (00 000) Comment: Order Comment: Specimen Type : BLOOD SPECIMEN Performed By: #### 24618-6 # ###[facility] LABORATORYCLIA [id number] [place] [address] Basophils/100 WBC (Bld) 0.7 % Normal 2019 [facility] (21425) Comment: Order Comment: Specimen Type : BLOOD SPECIMEN Performed By: #### 59697-1 # ###[facility] LABORATORYCLIA [id number] [facility] [place] [address] Differential cell count method Auto Normal 06-19-2020 [facility] (Bld[facility] (00 000) Comment: Order Comment: Specimen Type : BLOOD SPECIMEN Performed By: #### 46060-4 # ###[facility] LABORATORYCLIA [id number] [facility] [place] [address] Eosinophils (Bld) [#/Vol] 0.71 <0.46 k/uL High [facility] (00 000) Comment: Order Comment: Specimen Type : BLOOD SPECIMEN Performed By: #### 81580-8 # ###[facility] LABORATORYCLIA [id number] [facility] [place] [address] Eosinophils/100 WBC (Bld) 6.0 % Normal [facility] (89699) Comment: Order Comment: Specimen Type : BLOOD SPECIMEN Performed By: #### 55109-7 # ###[facility] LABORATORYCLIA [id number] [facility] [place] [address] Erythrocyte distribution 13.3 11.5-15.0 % Normal 06-19 [facility] (RBC) [Ratio] Center (72118) Comment: Order Comment: Specimen Type : BLOOD SPECIMEN Performed By: #### 46706-7 # ###[facility] LABORATORYCLIA [id number] [facility] [place] [address] Hematocrit (Bld) [Volume 37.8 36.0-46.0 % Normal 06-19 [facility]] Center (00 000) Comment: Order Comment: Specimen Type : BLOOD SPECIMEN Performed By: #### 11771-2 # ###[facility] LABORATORYCLIA [id number] [place] [address] Hemoglobin (Bld) 12.1 11.5-15.5 g/dL Normal 06-19-2020 [facility] [Mass/Vol] [employer] (0 0000) Comment: Order Comment: Specimen Type : BLOOD SPECIMEN Performed By: #### 96545-2 # ###[facility] LABORATORYCLIA [id number] [facility] [place] [address] IMMATURE GRAN % 1.5 % Normal 06-19-2020 [facility] (54740) Comment: Order Comment: Specimen Type : BLOOD SPECIMEN Performed By: #### 69058-9 # ###[facility] LABORATORYCLIA [id number] [facility] [place] [address] IMMATURE GRAN ABS 0.18 <0.10 k/uL High 06-19-2020 [facility] (57503) Comment: Order Comment: Specimen Type : BLOOD SPECIMEN Result Comment: Differential confirmed by visual scan of peripheral blood smear slide Performed By: #### 84984-8 # ###[facility] LABORATORYCLIA [id number] [facility] [place] [address] Lymphocytes (Bld) [#/Vol] 4.79 1.00-4.00 k/uL High [facility] (00 000) Comment: Order Comment: Specimen Type : BLOOD SPECIMEN Performed By: #### 03711-3 # ###[facility] LABORATORYCLIA [id number] [facility] [place] [address] Lymphocytes/100 WBC (Bld) 40.6 % Normal [facility] (78715) Comment: Order Comment: Specimen Type : BLOOD SPECIMEN Performed By: #### 48991-8 # ###[facility] LABORATORYCLIA [id number] [facility] [place] [address] MCH (RBC) [Entitic mass] 28.6 26.0-34.0 pg Normal 06-19 [facility] () Comment: Order Comment: Specimen Type : BLOOD SPECIMEN Performed By: #### 08862-4 # ###[facility] LABORATORYCLIA [id number] [place] [address] MCHC (RBC) [Mass/Vol] 32.0 30.5-36.0 g/dL Normal 06-19-20 [facility] () Comment: Order Comment: Specimen Type : BLOOD SPECIMEN Performed By: #### 24822-9 # ###[facility]ORATORYCLIA [id number] [place] [address] MCV (RBC) [Entitic vol] 89.4 80.0-100.0 fL Normal 06-19 [facility] () Comment: Order Comment: Specimen Type : BLOOD SPECIMEN Performed By: #### 31015-6 # ###[facility] LABORATORYCLIA [id number] [place] [address] Monocytes (Bld) [#/Vol] 0.53 <0.87 k/uL Normal 2019 [facility] () Comment: Order Comment: Specimen Type : BLOOD SPECIMEN Performed By: #### 64758-1 # ###[facility] LABORATORYCLIA [id number] [place] [address] Monocytes/100 WBC (Bld) 4.5 % Normal 2019 [facility] (20997) Comment: Order Comment: Specimen Type : BLOOD SPECIMEN Performed By: #### 01481-0 # ###[facility] LABORATORYCLIA [id number] [place] [address] Neutrophils (Bld) [#/Vol] 5.51 1.45-7.50 k/uL Normal [facility] () Comment: Order Comment: Specimen Type : BLOOD SPECIMEN Performed By: #### 71334-9 # ###[facility] LABORATORYCLIA [id number] [place] [address] Neutrophils/100 WBC (Bld) 46.7 % Normal [facility] (06465) Comment: Order Comment: Specimen Type : BLOOD SPECIMEN Performed By: #### 18362-3 # ###[facility] LABORATORYCLIA [id number] [place] [address] Nucleated RBC (Bld) <0.01 <0.01 10*3/uL Normal 06-19-2020 [facility] [#/Vol] [employer] (00 000) Comment: Order Comment: Specimen Type : BLOOD SPECIMEN Performed By: #### 83915-4 # ###[facility] LABORATORYCLIA [id number] [facility] [place] [address] Nucleated RBC/100 WBC 0.0 0.0 /100 WBC Normal 06-19-20 [facility] (Bld) [Ratio] [employer] (84160) Comment: Order Comment: Specimen Type : BLOOD SPECIMEN Performed By: #### 34803-4 # ###[facility] LABORATORYCLIA [id number] [place] [address] Platelet mean volume (Bld) 10.4 9.0-12.7 fL Normal [facility] [Entitic vol] [employer] (44009) Comment: Order Comment: Specimen Type : BLOOD SPECIMEN Performed By: #### 28071-5 # ###[facility] LABORATORYCLIA [id number] [place] [address] Platelets (Bld) [#/Vol] 324 150-400 k/uL Normal 2019 [facility] (00 000) Comment: Order Comment: Specimen Type : BLOOD SPECIMEN Performed By: #### 23080-6 # ###[facility] LABORATORYCLIA [id number] [place] [address] RBC (Bld) [#/Vol] 4.23 3.90-5.20 m/uL Normal 06-19-2020 [facility] (96322) Comment: Order Comment: Specimen Type : BLOOD SPECIMEN Performed By: #### 24889-9 # ###[facility] LABORATORYCLIA [id number] [place] [address] RED CELL MORPH Normal Normal 06-19-2020 [facility] (97534) Comment: Order Comment: Specimen Type : BLOOD SPECIMEN Performed By: #### 75014-9 # ###[facility] LABORATORYCLIA [id number] [facility] [address] WBC (Bld) [#/Vol] 11.80 3.70-11.00 k/uL High 06-19-2020 [facility] (17637) Comment: Order Comment: Specimen Type : BLOOD SPECIMEN Performed By: #### 16530-4 # ###[facility] LABORATORYCLIA [id number] [facility] [address] cnpn on 2020-06-15 CNPN Telephone (AGGENS6) Normal 06-15-2020 [facility] SALLY MCGREGOR ([id number]) 1980 F Medical Date Time Provider Department Center 06/15/20 TATY PEREA (CREPE MAKER, QUICK MIXER OPERATOR) AGGENS6 (46733) During your visit today, we recorded the following informati on about you: Taty Perea APRN.QUICK MIXER OPERATOR 06/15/2020 11:28 AM Signed Patient called the [...] have transportation. She refuses to go to [facility] ER to be seen because they treat her poorly. I will send an RX to her pharmacy for an antibiotic. She is to notify the office if her symptoms worsen or do not improve. Taty Perea APRN, QUICK MIXER OPERATOR Allergies As of Date: 06/15/2020 Noted Allergy [...] 06/15/20 progress on 2020-05 PROGRESS HNO ID: [id number] Normal 06-13-2020 [facility] Author: Kimmie Jennings General Service: General Surgery Medical Author Type: Resident Center Type: Progress Notes (06580) Filed: 06/13/2020 6:55 AM Note Text: Attestation signed by Mala Almendarez at 06/18/2020 1:28 PM I saw and evaluated the patient. Discussed with the reside nt and agree with resident's findings and plan as documented in the resident's note. [facility] Progress Note SERVICE DATE: 06/13/2020 [facility] Service Pager: For questions or concerns Mon-Fri 6a-5p please page [phone]. After 5pm and on Weekends and Holidays, [...] 0659 06/13/20 07 - 06/14/20 0659 Shift 9609-2404 3758-2811 7119-9157 24 Hour Total 1832-2129 1020-3316 3373-1123 24 Hour Total INTAKE PO 240 200 [...] questions or concerns Mon-Thu 6a-5p please page [phone]. After 5pm and on Weekends and Holidays, please page [phone] if in ICU or [phone] if on RNF. PROGRESS HNO ID: [id number] Normal 06-13-2020 [facility] Author: Mer (Rn) VIN Bejarano General Service: [...] plan of care on PLAN HNO ID: [id number] Normal 06-13-2020 [facility] Author: Aureliano Dietz DO General CARE [...] Phosphate [Mass/Vol] 3.9 2.7-4.8 mg/dL Normal 0 [facility] (13629) Comment: Performed By: #### URIN2 ### # [facility] [address] [place] [address] mdrd gfr on 2020-05 GFR/1.73 sq M >60 >60mL/min/1.73m2 mL/min/{1.73_m2} Normal [facility] non-blacks MDRD (000 00) (S/P/Bld) [Vol rate/Area] Comment: Result Comment: If the patie nt is , multiply the result by 1.210. Performed By: #### GFR #### [address] [address] magnesium blood on 2020-06-13 Magnesium [Mass/Vol] 2.1 1.7-2.3 mg/dL Normal 0 [facility] (17561) Comment: Performed By: #### URIN2 ### # [address] [address] hemogram on 2020-05 Erythrocyte distribution 13.4 11.7-14.4 % Normal 06-13 [facility] width (RBC) [Ratio] System (09398) Comment: Performed By: #### URIN2 ### # [facility] [address] [place], [place] [address] Hematocrit (Bld) [Volume 37.9 34.1-44.9 % Normal 06-13 [facility] fraction] System (00 000) Comment: Performed By: #### URIN2 ### # [address] [address] Hemoglobin (Bld) 12.1 11.2-15.7 g/dL Normal 06-13-2020 [facility] [Mass/Vol] System (0 0000) Comment: Performed By: #### URIN2 ### # [facility] [address] [place], [place] [address] MCH (RBC) [Entitic mass] 28.9 25.6-32.2 pg Normal 06-13 [facility] (00 000) Comment: Performed By: #### URIN2 ### # [facility] [address] [place], [place] [address] MCHC (RBC) [Mass/Vol] 31.9 31.6-34.8 % Normal 06-13-20 20 [facility] (07189) Comment: Performed By: #### URIN2 ### # [facility] [address] [place], [place] [address] MCV (RBC) [Entitic vol] 90.7 79.4-94.8 fl Normal 2019 [facility] (00 000) Comment: Performed By: #### URIN2 ### # [facility] [address] [place], [place] [address] Platelet mean volume (Bld) 10.9 9.4-12.3 fl Normal [facility] [Entitic vol] System (47064) Comment: Performed By: #### URIN2 ### # [facility] [address] [place], [place] [address] Platelets (Bld) [#/Vol] 236 182-369 thou/cmm Normal 2019 [facility] (00 000) Comment: Performed By: #### URIN2 ### # [facility] [address] [place], [place] [address] RBC (Bld) [#/Vol] 4.18 3.93-5.22 mil/cmm Normal 06-13-2020 [facility] (00 000) Comment: Performed By: #### URIN2 ### # [facility] [address] [place], [place] [address] RDW SD 44.2 36.4-46.3 fl Normal 06-13-2020 [facility] (85084) Comment: Performed By: #### URIN2 ### # [facility] [address] [place], [place] [address] WBC (Bld) [#/Vol] 7.45 3.98-10.04 thou/cmm Normal 06-13-2020 [facility] (00 000) Comment: Performed By: #### URIN2 ### # [facility] [address] [place] [address] comprehensive metabolic panel on 2020-06-13 Albumin [Mass/Vol] 4.1 3.9-4.9 g/dL Normal 06-13-2020 [facility] (12181) Comment: Performed By: #### URIN2 ### # [facility] [address] [place] [address] ALP [Catalytic activity/Vol] 98 34-123 U/L Normal 0 06-13-2020 [facility] (00 000) Comment: Performed By: #### URIN2 ### # [facility] [address] [place] [address] ALT [Catalytic activity/Vol] 73 7-38 U/L High 0 06-13-2020 [facility] (31638) Comment: Performed By: #### URIN2 ### # [facility] [address] [place] [address] Anion gap [Moles/Vol] 10 9-18 mmol/L Normal 06-13-20 20 [facility] (45119) Comment: Performed By: #### URIN2 ### # [facility] [address] [place] [address] AST [Catalytic activity/Vol] 69 13-35 U/L High 0 06-13-2020 [facility] (86553) Comment: Performed By: #### URIN2 ### # [facility] [address] [place] [id number] Bilirubin [Mass/Vol] 0.6 0.2-1.3 mg/dL Normal 0 [facility] (00448) Comment: Performed By: #### URIN2 ### # [facility] [address] [place] [id number] Calcium [Mass/Vol] 9.1 8.5-10.2 mg/dL Normal 06-13-2020 [facility] (40237) Comment: Performed By: #### URIN2 ### # [facility] [address] [place], [place] [address] Chloride [Moles/Vol] 101 97-105 mmol/L Normal 0 [facility] (55896) Comment: Performed By: #### URIN2 ### # [facility] [address] [place], [place] [address] CO2 Blood 27 22-30 mmol/L Normal 06-13-2020 [facility] (52498) Comment: Performed By: #### URIN2 ### # [facility] [address] [place], [place] [address] Creatinine [Mass/Vol] 0.87 0.58-0.96 mg/dL Normal 06-13-20 [facility] (00 000) Comment: Performed By: #### URIN2 ### # [facility] [address] [place], [place] [address] Glucose [Mass/Vol] 94 74-99 mg/dL Normal 06-13-2020 [facility] (77420) Comment: Result Comment: The [place] Diabetes Association (ADA) provides guidance for cutoff [...] Standards of Medical Care in Diabetes 2016; [place] [employer]. Diabetes Care. 2016;39(Suppl 1). Performed By: #### URIN2 ### # [facility] [address] [place], [place] [address] Potassium [Moles/Vol] 3.8 3.7-5.1 mmol/L Normal 06-13-20 [facility] (00 000) Comment: Performed By: #### URIN2 ### # [facility] [address] [place], [place] [address] Protein [Mass/Vol] 7.3 6.3-8.0 g/dL Normal 06-13-2020 [facility] (19334) Comment: Performed By: #### URIN2 ### # [facility] [address] [place], [place] [address] Sodium [Moles/Vol] 138 136-144 mmol/L Normal 06-13-2020 [facility] (08164) Comment: Performed By: #### URIN2 ### # [facility] [address] [place], [place] [address] Urea nitrogen [Mass/Vol] 7 7-21 mg/dL Normal 06-13 [facility] (33607) Comment: Performed By: #### URIN2 ### # [facility] [address] [place], [place] [address] case managem on CASE MANAGEM HNO ID: [id number] Normal 06-13-20 [facility] Author: Britni PickardRn) VIN Grimaldo [facility] Service: Care Management (83420) Author Type: Registered Nurse Type: Care Mgt [...] Name/Phone: Floor RN TRANSPORTATION ARRANGEMENTS: Transportation Arrangements: [employer] (through [employer]) [employer]: [phone] Trip #: [id number] Needs Prior to Discharge: Ready for Discharge Chart reviewed. Discharge held yesterday due to uncontrolled pain. Spoke with patient. Plan is for discharge today. Awaiting di awarfausto orders. Discharge disposition= Home with follow up care. SIGNATURE: Britni Grimaldo RN PATIENT NAME: Sally james DATE: June 13, 2020 TIME: 11:00 AM PAGER/CONTACT #: [phone] progress on 2020-05 PROGRESS HNO ID: [id number] Normal 06-12-2020 [facility] Author: Nancy Abebe [facility] Service: General Surgery Medical Author Type: Resident Center Type: Progress Notes (44147) Filed: 06/12/2020 7:57 AM Note Text: Attestation signed by Mala Almendarez at 06/12/2020 9:28 PM Attending Note I personally saw and examined the patient. I reviewed the resident's note. I agree with the resident's assessment and plan with the maureen strong revisions and/or additions: Still with severe pain. Will hold DC today and poss dc [facility] Signature: Mala Almendarez MD Date: 06/12/2020 Time: 9:28 PM [facility] Progress Note SERVICE DATE: 06/12/2020 [facility] Service Pager: For questions or concerns Mon-Fri 6a-5p please page [phone]. After 5pm and on Weekends and Holidays, please page [phone]. SUBJECTIVE: C/o significant pain that prevents her [...] 06/11/206[address] - 06/12/2065806/12/20699 - 06/13/20 0659 Shift 0544-9577 2251-1965 6350-6086 24 Hour Total 0001-8003 4907-1803 3463-7627 24 Hour Total INTAKE PO 100 100 PO 100 100 IV 1900 1900 OR Crystalloid intake (mL) 1000 1000 Volume (mL) (lactated ringers infusion) 900 900 Shift Total 1954 792 2752 OUTPUT Urine 189 446 3702 Void (ml) 600 600 OR Urine Output 500 500 Urine Not Saved. 1 x 3 x 4 x Blood 50 50 Estimated Blood loss 50 50 Shift Total 468 274 6453 Weight (kg) 89.6 89.6 89.6 89.6 89.6 [...] care on PLAN OF CARE HNO ID: [id number] Normal 06-12-20 [facility] Author: Page Burgess (Cone Worker) [employer] ([address]) Service: Pharmacy Author Type: Pharmacist Type: Plan [...] from Discharge Medication Li st. Page Burgess, Cone Worker June 12, 2020 10:36 AM Medication List [...] Your Medications These medications were sent to [facility] [address] [place] [address] Hours: Thursday-Thursday, 8am-6:30pm ? oxyCODONE IR 5 mg immediate release tablet phosphorous blood o n 2020-06-12 Phosphate [Mass/Vol] 3.4 2.7-4.8 mg/dL Normal 0 [facility] ([address]) Comment: Performed By: #### CBCD1 ### # [place] [address] magnesium blood on 2020-06-12 Magnesium [Mass/Vol] 1.5 1.7-2.3 mg/dL Low 0 [employer] [facility] (00320) Comment: Performed By: #### CBCD1 ### # [place] [address] hemogram on 2020-05 Erythrocyte distribution 13.2 11.7-14.4 % Normal 06-12 [facility] width (RBC) [Ratio] System (27404) Comment: Performed By: #### CBCD1 ### # [place] [address] Hematocrit (Bld) [Volume 32.9 34.1-44.9 % Low 06-12 [employer] fraction] System (00 000) Comment: Performed By: #### CBCD1 ### # [place] [address] Hemoglobin (Bld) [Mass/Vol] 10.5 11.2-15.7 g/dL Low [facility] (00 000) Comment: Performed By: #### CBCD1 ### # [place] [address] MCH (RBC) [Entitic mass] 29.2 25.6-32.2 pg Normal 06-12 [facility] (00 000) Comment: Performed By: #### CBCD1 ### # [address], [place] [address] MCHC (RBC) [Mass/Vol] 31.9 31.6-34.8 % Normal 06-12-20 20 [facility] (93213) Comment: Performed By: #### CBCD1 ### # [facility] [address] [place], [place] [address] MCV (RBC) [Entitic vol] 91.4 79.4-94.8 fl Normal 2019 [facility] (00 000) Comment: Performed By: #### CBCD1 ### # [facility] [address] [place] [id number] Platelet mean volume (Bld) 11.5 9.4-12.3 fl Normal [facility] [Entitic vol] System (76069) Comment: Performed By: #### CBCD1 ### # [facility] [address] [place], [place] [address] Platelets (Bld) [#/Vol] 182 182-369 thou/cmm Normal 2019 [facility] (00 000) Comment: Performed By: #### CBCD1 ### # [facility] [address] [place], [place] [address] RBC (Bld) [#/Vol] 3.60 3.93-5.22 mil/cmm Low 06-12-2020 [facility] (79813) Comment: Performed By: #### CBCD1 ### # [facility] [address] [place], [place] [address] RDW SD 44.5 36.4-46.3 fl Normal 06-12-2020 [facility] (26808) Comment: Performed By: #### CBCD1 ### # [facility] [address] [place], [place] [address] WBC (Bld) [#/Vol] 7.04 3.98-10.04 thou/cmm Normal 06-12-2020 [facility] (00 000) Comment: Performed By: #### CBCD1 ### # [facility] [address] [place], [place] [address] case managem on 202 CASE MANAGEM HNO ID: [id number] Normal 06-12-20 [facility] Author: Britni (Rn) [facility] Service: Care Management (68293) Author Type: Registered Nurse Type: Care Mgt [...] 12, 2020 TIME: 9:18 AM PAGER/CONTACT #: [phone] basic metabolic panel on 2020-06-12 Anion gap [Moles/Vol] 8 9-18 mmol/L Low 06-12-20 20 [facility] (83379) Comment: Performed By: #### CBCD1 ### # [facility] [address] [place], [place] [address] Calcium [Mass/Vol] 8.0 8.5-10.2 mg/dL Low 06-12-2020 [facility] (55626) Comment: Performed By: #### CBCD1 ### # [facility] [address] [place], [place] [address] Chloride [Moles/Vol] 104 97-105 mmol/L Normal 0 [facility] (35503) Comment: Performed By: #### CBCD1 ### # [facility] [address] [place], [place] [address] CO2 Blood 26 22-30 mmol/L Normal 06-12-2020 [facility] (53308) Comment: Performed By: #### CBCD1 ### # [facility] [address] [place], [place] [address] Creatinine [Mass/Vol] 0.87 0.58-0.96 mg/dL Normal 06-12-20 [facility] (00 000) Comment: Performed By: #### CBCD1 ### # [facility] [address] [place], [place] [address] Glucose [Mass/Vol] 83 74-99 mg/dL Normal 06-12-2020 [facility] (22153) Comment: Result Comment: The [place] Diabetes Association (ADA) provides guidance for cutoff [...] Standards of Medical Care in Diabetes 2016; [place] [employer]. Diabetes Care. 2016;39(Suppl 1). Performed By: #### CBCD1 ### # [facility] [address] [place], [place] [address] Potassium [Moles/Vol] 3.4 3.7-5.1 mmol/L Low 06-12-20 20 [facility] (12372) Comment: Performed By: #### CBCD1 ### # [facility] [address] [place], [place] [address] Sodium [Moles/Vol] 138 136-144 mmol/L Normal 06-12-2020 [facility] (72558) Comment: Performed By: #### CBCD1 ### # [facility] [address] [place], [place] [address] Urea nitrogen [Mass/Vol] 6 7-21 mg/dL Low 06-12 [facility] (11034) Comment: Performed By: #### CBCD1 ### # [facility] [address] [place], [place] [address] type and screen on 2020-06-11 ABO group Nom (Bld) O Normal 06-11-2020 [facility] ([id number]) Comment: Performed By: #### CBCD1 ### # [place] [address] Comment See Below Normal 06-11-2020 [facility] (60551) Comment: Result Comment: Screen &/or Xmatch expires in 3 days at 12 midnight. Redraw patient at that time. Performed By: #### CBCD1 ### # [place] [address] RH Type Positive Normal 06-11-2020 [facility] ([id number]) Comment: Performed By: #### CBCD1 ### # [place] [address] surgical tissue exam on 2020-06-11 Surgical Tissue Exam Test performed at [facility] Normal 06-11-2020 [facility] [address] [place] [address] ([id number]) NAME: SALLY MCGREGOR REQUESTING: MALA ALMENDAREZ MD [...] are not see n on the specimen. Construction Engineer sections are submitted in formalin in 4 cassettes. LETICIA/chadd VILLASEÑOR M.D., PATHOLOGIST (Electronic signature on file) Signed out: 06/13/2020 16:48 PRINTED: 06/13/2020 Page 1 of 1 Comment: Performed By: #### URIN2 ### # [place] [address] progress on 2020-05 PROGRESS HNO ID: [id number] Normal 06-11-2020 [facility] Author: Kimmie Topetem General Service: General Surgery Medical Author Type: Resident Center Type: Progress Notes ([id number]) Filed: 06/11/2020 7:03 AM Note Text: Attestation [...] questions or concerns Mon-Fri 6a-5p please page [phone]. After 5pm and on Weekends and Holidays, please page [phone]. SUBJECTIVE: NAEON. Afebrile. Patient resting in bed [...] - 06/11/20 0606/11/20699 - 06/12/20 0659 Shift 3245-2483 0742-8955 0736-4731 24 Hour Total 8728-2902 0270-9278 8249-4326 24 Hour Total INTAKE PO 600 600 [...] questions or concerns Thu-Thu 6a-5p please page [phone]. After 5pm and on Weekends and Holidays, please page [phone] if in ICU or 217 if on RNF. operative no on 202 OPERATIVE NO HNO ID: [id number] Normal 06-11-20 [facility] Author: Mala Eddy [facility] Service: General Surgery ([id number]) Author Type: Physician Type: Operative Report Filed: 06/11/2020 1:39 PM Note Text: [facility] - Operative Report SALLY MCGREGOR : 1980 AGE: 39. SEX: F PATIENT TYPE: I HOSP SVC: GENS LOCATION: [facility] ATTENDING PHYSICIAN: MALA ALMENDAREZ CSN NUMBER: [id number] DATE OF SURGERY/PROCEDURE: 06/11/2020 INCISION/PROCEDURE START TIME: 10:51 AM INCISION CLOSE/PROCEDURE END TIME: 11:47 AM PREOPERATIVE DIAGNOSIS: Symptomatic liver cyst. POSTOPERATIVE DIAGNOSIS: Symptomatic liver cyst. SURGEON: Mala Almendarez MD DIAMOND SETTER APPRENTICE: None. SURGERY/PROCEDURE: Laparoscopic partial right hepatic lobect [...] CLASS: 2, clean, contaminated. Mala Almendarez MD NSA:[id number] /[id number] nursing prog on NURSING PROG HNO ID: [id number] Normal 06-11-20 20 [facility] Author: Garo PickardRnJoao Jackson RN [facility] Service: ? ([id number]) Author Type: Registered Nurse Type: Nursing Progress Note Filed: 06/11/2020 6:25 PM Note Text: Nursing Progress Note Patient Name: Sally Mcgregor Patient Location: [place] [id number]- Patient refusing IV fluids, states we can restart them when she goes to bed. Informed surgery team. This note was completed by: Garo Jackson RN hemogram on 2020-05 Erythrocyte distribution 13.0 11.7-14.4 % Normal 06-11 [facility] width (RBC) [Ratio] System (32534) Comment: Performed By: #### CBCD1 ### # [facility] [address] [place] [id number] Hematocrit (Bld) [Volume 35.0 34.1-44.9 % Normal 06-11 [facility] fraction] System (00 000) Comment: Performed By: #### CBCD1 ### # [facility] [address] [place], [place] [address] Hemoglobin (Bld) 11.4 11.2-15.7 g/dL Normal 06-11-2020 [facility] [Mass/Vol] System (0 0000) Comment: Performed By: #### CBCD1 ### # [facility] [address] [place], [place] [address] MCH (RBC) [Entitic mass] 29.2 25.6-32.2 pg Normal 06-11 [facility] (00 000) Comment: Performed By: #### CBCD1 ### # [facility] [address] [place], [place] [address] MCHC (RBC) [Mass/Vol] 32.6 31.6-34.8 % Normal 06-11-20 20 [facility] (07049) Comment: Performed By: #### CBCD1 ### # [facility] [address] [place], [place] [address] MCV (RBC) [Entitic vol] 89.5 79.4-94.8 fl Normal 2019 [facility] (00 000) Comment: Performed By: #### CBCD1 ### # [facility] [address] [place], [place] [address] Platelet mean volume (Bld) 11.1 9.4-12.3 fl Normal [facility] [Entitic vol] System (58521) Comment: Performed By: #### CBCD1 ### # [facility] [address] [place], [place] [address] Platelets (Bld) [#/Vol] 229 182-369 thou/cmm Normal 2019 [facility] (00 000) Comment: Performed By: #### CBCD1 ### # [facility] [address] [place], [place] [address] RBC (Bld) [#/Vol] 3.91 3.93-5.22 mil/cmm Low 06-11-2020 [facility] (37490) Comment: Performed By: #### CBCD1 ### # [facility] [address] [place], [place] [address] RDW SD 42.5 36.4-46.3 fl Normal 06-11-2020 [facility] (35300) Comment: Performed By: #### CBCD1 ### # [facility] [address] [place], [place] [address] WBC (Bld) [#/Vol] 6.54 3.98-10.04 thou/cmm Normal 06-11-2020 [facility] (00 000) Comment: Performed By: #### CBCD1 ### # [facility] [address] [place], [place] [address] case managem on CASE MANAGEM HNO ID: [id number] Normal 06-11-20 [facility] Author: Britni PickardRn) VIN Grimaldo [facility] Service: Care Management ([id number]) Author Type: Registered Nurse Type: Care Mgt [...] 11, 2020 TIME: 9:10 AM PAGER/CONTACT #: [phone] anes preop on 06-11 ANES PREOP HNO ID: [id number] Normal 06-11-2020 [facility]: [facility] Service: Anesthesiology ([id number]) Author Type: Physician Type: Anesthesia PreOp Filed: [...] Benign liver cyst 05/24/2010 CT scan at [facility] 11/2009 and 04/2010 showe 4 mm increase in size . No pain. No elevated LFTs on 03/11/2010. - Calculus of kidney 05/17/[address] Nicolas: Hospitalized age 20, and again later -- no procedures so far ([facility], most, 1995 [facility]) - Cancer (HCC) - Diverticulosis - [...] Approx. 3 cigarettes daily-1 pack every w paimiut Substance Use Topics - Alcohol use: Yes [...] INTRAVENOUS q 3 H PRN Nigel (Res) [place] 1 mg at 06/11/20 0536 - [MAR Hold due to Transfer] NaCl 0.9% iv infusion 125 mL/hr INTRAVENOUS CONTINUOUS Nigel (Res) [place] 125 mL/hr at 06/10/20 2248 1 25 [...] June 11, 2020 TIME: 9:49 AM CSN: [id number] anes post on 06-11 ANES POST HNO ID: [id number] Normal 06-11-2020 [facility] Author: Edwin Sesay [employer] ([id number]) Service: Anesthesiology Author Type: Physician Type: Anesthesia [...] #: progress on 2020-05 PROGRESS HNO ID: [id number] Normal 06-10-2020 [facility] Author: Mer PickardRnJoao Bejarano RN [employer] ([id number]) Service: Nursing Author Type: Registered Nurse Type: [...] resident Kimmie was notified. PROGRESS HNO ID: [id number] Normal 06-10-2020 [facility] Author: Kimmie Jennings [employer] ([id number]) Service: General Surgery Author Type: Resident Type: [...] questions or concerns Mon-Fri 6a-5p please page [phone]. After 5pm and on Weekends and Holidays, please page [phone]. SUBJECTIVE: NAEON. Afebrile. Patient resting in bed [...] 0659 06/10/20 0700 - 06/11/20 0659 Shift 0716-3220 7031-9574 5325-1898 24 Hour Total 6603-1225 2379-5789 8434-7399 24 Hour Total INTAKE PO 115 950 0409 PO 447 761 1867 Shift Total 116 107 0427 OUTPUT Urine Urine Not Saved. 2 x [...] questions or concerns Thu-Thu 6a-5p please page [phone]. After 5pm and on Weekends and Holidays, please page [phone] if in ICU or [phone] if on RNF. PROGRESS HNO ID: [id number] Normal 06-10-2020 [facility] Medical Author: Mer PickardRnJoao Bejarano RN [employer] ([id number]) Service: Nursing Author Type: Registered Nurse Type: [...] Phosphate [Mass/Vol] 4.2 2.7-4.8 mg/dL Normal 0 [facility] (12815) Comment: Performed By: #### CBCD1 ### # [address] [address] magnesium blood on 2020-06-10 Magnesium [Mass/Vol] 1.8 1.7-2.3 mg/dL Normal 0 [facility] (69818) Comment: Performed By: #### CBCD1 ### # [address] [address] coronavirus 2019 on 2020-06-10 COVID 19 Result [employer] COORDINATOR Negative CORNEG Normal 06-10-2020 [facility] (34120) Comment: Result Comment: Negative for COVID19 (SARS CoV2) by PCR. This test was developed and its performance characteristics determined by [facility]'s Johnnie Abreu Pathology and Laboratory Medicine [place]. This test has bee n authorized by [...] issued on November 12, 2019. Performing Laboratory: [facility] [address] [place] [address] Performed By: #### CBCD1 ### # [address] [address] basic metabolic panel on 2020-06-10 Anion gap [Moles/Vol] 10 9-18 mmol/L Normal 06-10-20 20 [facility] (46170) Comment: Performed By: #### CBCD1 ### # [address] [address] Calcium [Mass/Vol] 9.2 8.5-10.2 mg/dL Normal 06-10-2020 [facility] (58970) Comment: Performed By: #### CBCD1 ### # [facility] [address] [place], [place] [address] Chloride [Moles/Vol] 102 97-105 mmol/L Normal 0 [facility] (44342) Comment: Performed By: #### CBCD1 ### # [facility] [address] [place], [place] [address] CO2 Blood 27 22-30 mmol/L Normal 06-10-2020 [facility] (63831) Comment: Performed By: #### CBCD1 ### # [facility] [address] [place], [place] [address] Creatinine [Mass/Vol] 0.90 0.58-0.96 mg/dL Normal 06-10-20 20 [facility] (00 000) Comment: Performed By: #### CBCD1 ### # [facility] [address] [place], [place] [address] Glucose [Mass/Vol] 105 74-99 mg/dL High 06-10-2020 [facility] (48961) Comment: Result Comment: The [place] Diabetes Association (ADA) provides guidance for cutoff [...] Standards of Medical Care in Diabetes 2016; [place] Diabetes Association. Diabetes Care. 2016;39(Suppl 1). Performed By: #### CBCD1 ### # [facility] [address] [place], [place] [address] Potassium [Moles/Vol] 3.7 3.7-5.1 mmol/L Normal 06-10-20 [facility] (00 000) Comment: Performed By: #### CBCD1 ### # [facility] [address] [place], [place] [address] Sodium [Moles/Vol] 139 136-144 mmol/L Normal 06-10-2020 [facility] (04358) Comment: Performed By: #### CBCD1 ### # [facility] [address] [place], [place] [address] Urea nitrogen [Mass/Vol] 8 7-21 mg/dL Normal 06-10 [facility] (05505) Comment: Performed By: #### CBCD1 ### # [facility] [address] [place] [id number] allied health on 03-06-27 ALLIED HNO ID: [id number] Normal 06-10-2020 [facility] Author: Chaplain Suarez (Chaplain) General Service: Spiritual Care Medical Author Type: Clinical Project Leader Center Type: [facility] ([id number]) Filed: 06/10/2020 7:39 PM Note Text: SPIRITUALCARE Spiritual Care Visit- Brief Note Name: Sally Mcgregor Date: June 10, 2020 Notes: Pre-surgery Patient Nothing needed tonight. Clinical Project Leader Signature: Chaplain Erick To contact the Spiritual Care Department: Please call [phone] or Page the On-Call Clinical Project Leader at [phone] Thank you for the opportunity to be of service. This is an electronically created document. IF PRINTED, PLEASE DO NOT REMOVE FROM THE CHART OR MODIFY VA INTED COPY. progress on 2020-05 PROGRESS HNO ID: [id number] Normal 06-09-2020 [facility] Author: Kimmie Jennings General Service: General Surgery Medical Author Type: Resident Center Type: Progress Notes ([id number]) Filed: 06/09/2020 7:14 AM Note Text: Attestation [...] questions or concerns Thu-Thu 6a-5p please page [phone]. After 5pm and on Weekends and Holidays, please page [phone]. SUBJECTIVE: NAEON. Afebrile. Patient resting in bed [...] - 06/09/20 0606/09/20699 - 06/10/20 0659 Shift 1703-3044 0805-7221 0956-1169 24 Hour Total 4663-1630 7993-6044 6579-7635 24 Hour Total INTAKE Shift Total OUTPUT [...] (TYLENOL) 975 mg ORAL q 6 H VA N - oxyCODONE IR 5-10 mg tab(s) [...] please page [phone] if in ICU or [phone] if on RNF. hemogram on 2020-05 Erythrocyte distribution 13.2 11.7-14.4 % Normal 06-09 [facility] width (RBC) [Ratio] System (81062) Comment: Performed By: #### GFR #### [address] [address] Hematocrit (Bld) [Volume 33.7 34.1-44.9 % Low 06-09 [facility]] System (00 000) Comment: Performed By: #### GFR #### [facility] [address] [place], [place] [address] Hemoglobin (Bld) [Mass/Vol] 10.6 11.2-15.7 g/dL Low [facility] (00 000) Comment: Performed By: #### GFR #### [place] [address] MCH (RBC) [Entitic mass] 28.8 25.6-32.2 pg Normal 06-09 [facility] (00 000) Comment: Performed By: #### GFR #### [place] [address] MCHC (RBC) [Mass/Vol] 31.5 31.6-34.8 % Low 06-09-20 20 [facility] (07790) Comment: Performed By: #### GFR #### [place] [address] MCV (RBC) [Entitic vol] 91.6 79.4-94.8 fl Normal 2019 [facility] (00 000) Comment: Performed By: #### GFR #### [place] [address] Platelet mean volume (Bld) 11.6 9.4-12.3 fl Normal [facility] [Entitic vol] System (22565) Comment: Performed By: #### GFR #### [place] [id number] Platelets (Bld) [#/Vol] 199 182-369 thou/cmm Normal 2019 [facility] (00 000) Comment: Performed By: #### GFR #### [place] [address] RBC (Bld) [#/Vol] 3.68 3.93-5.22 mil/cmm Low 06-09-2020 [facility] (72823) Comment: Performed By: #### GFR #### [place] [address] RDW SD 43.9 36.4-46.3 fl Normal 06-09-2020 [facility] (31367) Comment: Performed By: #### GFR #### [facility] [address] [place], [place] [address] WBC (Bld) [#/Vol] 6.47 3.98-10.04 thou/cmm Normal 06-09-2020 [facility] (00 000) Comment: Performed By: #### GFR #### [facility] [address] [place], [place] [address] basic metabolic panel on 2020-06-09 Anion gap [Moles/Vol] 11 9-18 mmol/L Normal 06-09-20 20 [facility] (99708) Comment: Performed By: #### GFR #### [facility] [address] [place], [place] [address] Calcium [Mass/Vol] 8.8 8.5-10.2 mg/dL Normal 06-09-2020 [facility] (59437) Comment: Performed By: #### GFR #### [facility] [address] [place], [place] [address] Chloride [Moles/Vol] 106 97-105 mmol/L High 0 [facility] (23562) Comment: Performed By: #### GFR #### [facility] [address] [place], [place] [address] CO2 Blood 24 22-30 mmol/L Normal 06-09-2020 [facility] (19225) Comment: Performed By: #### GFR #### [facility] [address] [place], [place] [address] Creatinine [Mass/Vol] 0.82 0.58-0.96 mg/dL Normal 06-09-20 20 [facility] (00 000) Comment: Performed By: #### GFR #### [facility] [address] [place], [place] [address] Glucose [Mass/Vol] 84 74-99 mg/dL Normal 06-09-2020 [facility] (31276) Comment: Result Comment: The [place] Diabetes Association (ADA) provides guidance for cutoff [...] Standards of Medical Care in Diabetes 2016; [place] Diabetes Association. Diabetes Care. 2016;39(Suppl 1). Performed By: #### GFR #### [facility] [address] [place], [place] [address] Potassium [Moles/Vol] 3.8 3.7-5.1 mmol/L Normal 06-09-20 [facility] (00 000) Comment: Performed By: #### GFR #### [address] [address] Sodium [Moles/Vol] 141 136-144 mmol/L Normal 06-09-2020 [facility] (58722) Comment: Performed By: #### GFR #### [address] [address] Urea nitrogen [Mass/Vol] 9 7-21 mg/dL Normal 06-09 [facility] (21562) Comment: Performed By: #### GFR #### [address] [address] protime on INR Coag (PPP) [Relative 1.07 0.90-1.30 {INR} Normal 06-08 [facility] time] System (00 000) Comment: Result Comment: Vitamin K An tagonist (VKA) Therapeutic Range: INR 2 to 3 (Target INR of 2.5) Note: For patients treated w ith VKA drugs, such as warfarin, the [place] [employer] ys[employer] 2012 Guideline recommends a therapeutic INR range of 2 to 3 (target INR of 2.5). This recommendation includes high -risk patients with antiphospholipid syndrome with previous arter ial or venous thromboembolism, current-generation mechanica l or bioprosthetic aortic heart valve replacement. Note: Patients with aircraft engine mechanic overhaul al aortic valve replacement and additional risk factors for thromboembolic events (atrial fibrillation, previous throm boembolism, LV dysfunction, hypercoagulable conditions) or an older generation mechanical AVR (i.e., ball in-Cage) or any mechanical MVR should have a INR therapeutic range of 2 .5 to 3.5 target INR of 3). Magdalene GH, et al. Chest 2012 ; 141:7S-47S Calderon FERNÁNDEZ et al. [facility] 20 17; 70: 252-289 Performed By: #### GFR #### [facility] [address] [place], [place] [address] PT Coag (PPP) [Time] 11.1 9.7-13.0 sec Normal 0 [facility] (64692) Comment: Performed By: #### GFR #### [address] [address] phosphorous blood o n 2020-06-08 Phosphate [Mass/Vol] 3.3 2.7-4.8 mg/dL Normal 0 [facility] (70096) Comment: Performed By: #### GFR #### [address] [address] nursing prog on NURSING PROG HNO ID: [id number] Normal 06-08-20 20 [facility] Author: Garo Jackson RN [facility] Service: ? ([id number]) Author Type: Registered Nurse Type: Nursing Progress Note Filed: 06/08/2020 10:56 AM Note Text: Nursing Progress Note Patient Name: Sally Mcgregor Patient [address]: [id number] Spoke with Doctor Dick regarding IV contrast allergy and th e need for steroid prep. This note was completed by: Garo Jackson RN mri panc/james wo/w ivcon on 2020-06-08 MRI PANC/JAMES WO/W Final Report Normal 0 [facility] IVCON DATE OF EXAM: Jun 08 2020 6:[address] [place] [address]30 - MRI PANC/JAMES WO/W IVCON / ([id number]) PROCEDURE REASON: Liver lesion, >1cm, US indeterminate, [...] x 8.0 cm . 2. Normal MRCP. Stacker: PSCB Transcribe Date/Time: Jun 08 2020 7:48P Dictated by : ALICE ALCARAZ MD This examination was interpreted and the report reviewed and electronically signed by: ALICE ALCARAZ MD on Jun 08 2020 8:42PM EST mri 3d post processing on 2020-06-08 MRI 3D POST Final Report Normal 06-08-2020 Gabriela barboza General PROCESSING DATE OF EXAM: Jun 08 2020 6:[facility] 0280 - MRI 3D POST PROCESSING / ([id number]) PROCEDURE REASON: Abd pain, chronic, intermittent Physician [...] x 8.0 cm . 2. Normal MRCP. Stacker: PSCAudrey Transcribe Date/Time: Jun 08 2020 7:48P Dictated by : ALICE ALCARAZ MD This examination was interpreted and the report reviewed and electronically signed by: ALICE ALCARAZ MD on Jun 08 2020 8:42PM EST magnesium blood on 2020-06-08 Magnesium [Mass/Vol] 2.0 1.7-2.3 mg/dL Normal 0 [facility] (38739) Comment: Performed By: #### LIP #### [place] [id number] lipase blood on Lipase Blood 31 16-61 U/L Normal 06-08-2020 [facility] (73303) Comment: Performed By: #### GFR #### [facility] [address] [place], [place] [address] history physical on 2020-06-08 HISTORY HNO ID: [id number] Normal 06-08-2020 [facility] [place] PHYSICAL Author: Chris Kurtz [facility] Service: General Surgery Medical Author Type: Resident Center Type: [facility] (75059) Filed: 06/08/2020 7:24 AM Note Text: Attestation signed by Mala Almendarez at 06/08/2020 7:09 PM Attending Note I personally saw and examined the patient. I reviewed the resident's note. I agree with the resident's assessment and plan with the [facility] revisions and/or additions: Admit for symptomatic hepatic cyst. Plan for cyst fenestrati on on Thursday. Signature: Mala Almendarez MD Date: 06/08/2020 Time: 7:09 PM HISTORY AND PHYSICAL EXAMINATION SERVICE DATE: 06/08/2020 SERVICE TIME: 7:12 AM Subjective CHIEF COMPLAINT: Abdominal Pain HPI: 39 year old female presents as a direct admission to [facility] with abdominal pain and a known history of hepatic cysts with rec urrent pancreatitis. Her last admission was for pancreatitis, in [facility] she had imaging showing increasing [...] Benign liver cyst 05/24/2010 CT scan at [facility] 11/2009 and 04/2010 showe 4 mm increase in size . No pain. No elevated LFTs on 03/11/2010. - Calculus of kidney 05/17/[address] Nicolas: Hospitalized age 20, and again later -- no procedures so far ([facility], most, 1995 [facility]) - Cancer (HCC) - Diverticulosis - [...] removed - TOTAL ABDOM HYSTERECTOMY 08/31/06 Hysterectomy, [facility] Problem Relation Age of [...] Approx. 3 cigarettes daily-1 pack every w paimiut Substance Use Topics - Alcohol use: Yes [...] in the last 72 hours. Invalid input(s): [facility] Diagnostic tests reviewed for today's visit: Most [...] please page [phone] if in ICU or 2178 if on RNF. hepatic function panel on 2020-06-08 Albumin [Mass/Vol] 4.7 3.9-4.9 g/dL Normal 06-08-2020 [facility] (17547) Comment: Performed By: #### GFR #### [address] [address] ALP [Catalytic activity/Vol] 94 34-123 U/L Normal 0 06-08-2020 [facility] (00 000) Comment: Performed By: #### GFR #### [address] [address] ALT [Catalytic activity/Vol] 17 7-38 U/L Normal 0 06-08-2020 [facility] (00 000) Comment: Performed By: #### GFR #### [address] [address] AST [Catalytic activity/Vol] see below 13-35 Normal 0 06-08-2020 [facility] (00 000) Comment: Result Comment: Unable to as say. Specimen Hemolyzed Performed By: #### GFR #### [address] [address] Bilirubin [Mass/Vol] 0.3 0.2-1.3 mg/dL Normal 0 [facility] ([address]234) Comment: Performed By: #### GFR #### [facility] [address] [place], [place] [address] Bilirubin [Mass/Vol] see below 0.0-0.2 Normal 0 [facility] (00 000) Comment: Result Comment: Unable to as say. Specimen Hemolyzed Performed By: #### GFR #### [facility] [address] [place], [place] [address] Protein [Mass/Vol] 7.8 6.3-8.0 g/dL Normal 06-08-2020 [facility] (93346) Comment: Performed By: #### GFR #### [facility] [address] [place], [place] [address] hemogram on 2020-05 Erythrocyte distribution 13.3 11.7-14.4 % Normal 06-08 [facility] width (RBC) [Ratio] System (84329) Comment: Performed By: #### LIP #### [facility] [address] [place], [place] [address] Hematocrit (Bld) [Volume 38.1 34.1-44.9 % Normal 06-08 [facility] fraction] System (00 000) Comment: Performed By: #### LIP #### [address] [address] Hemoglobin (Bld) 11.8 11.2-15.7 g/dL Normal 06-08-2020 [facility] [Mass/Vol] System (0 0000) Comment: Performed By: #### LIP #### [facility] [facility] [address] [place], [place] [address] MCH (RBC) [Entitic mass] 28.4 25.6-32.2 pg Normal 06-08 [facility] (00 000) Comment: Performed By: #### LIP #### [address] [address] MCHC (RBC) [Mass/Vol] 31.0 31.6-34.8 % Low 06-08-20 20 [facility] ([address]81) Comment: Performed By: #### LIP #### [facility] [address] [place], [place] [address] MCV (RBC) [Entitic vol] 91.8 79.4-94.8 fl Normal 2019 [facility] (00 000) Comment: Performed By: #### LIP #### [facility] [address] [place] [id number] Platelet mean volume (Bld) 11.6 9.4-12.3 fl Normal [facility] [Entitic vol] System (19054) Comment: Performed By: #### LIP #### [facility] [address] [place] [id number] Platelets (Bld) [#/Vol] 230 182-369 thou/cmm Normal 2019 [facility] (00 000) Comment: Performed By: #### LIP #### [facility] [address] [place] [id number] RBC (Bld) [#/Vol] 4.15 3.93-5.22 mil/cmm Normal 06-08-2020 [facility] (00 000) Comment: Performed By: #### LIP #### [facility] [address] [place] [id number] RDW SD 44.9 36.4-46.3 fl Normal 06-08-2020 [facility] (50455) Comment: Performed By: #### LIP #### [facility] [address] [place], [place] [address] WBC (Bld) [#/Vol] 7.30 3.98-10.04 thou/cmm Normal 06-08-2020 [facility] (00 000) Comment: Performed By: #### LIP #### [facility] [address] [place] [id number] case mgt init asses on 2020-06-08 CASE MGT INIT HNO ID: [id number] Normal 020 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 Goals: To return home to life as it was Health Insurance: [facility] Issues Impacting Discharge Plan: Uncontrolled Uncontrolled: History [...] completed Advance Directive: Current Advance Directive: None Maintenance Mgr Attempted to Assist with AD Completion: Yes [...] Patient Currently Receive Any Community Services or [facility] Care?: None Equipment Prior to [...] Completely I feel financially burdened by my chb-fo-nnxtte expenses for my prescription medication:: 0 - Disagree Completely Risk Score: 0 Patient is categorized as: Low risk < 2 Are you interested in bedside delivery of your medications? Yes Is Patient Psychosocially Complex?: No ASSESSMENT AND PLAN: Medical Needs: Medical Needs: Two or more chronic diseases Psychosocial Needs: Psychosocial Needs: None FREEDOM OF CHOICE EXPLAINED: [place] of Choice Given: No Reason Not Given: [...] 08, 2020 TIME: 10:50 AM PAGER/CONTACT #: [phone] basic metabolic panel on 2020-06-08 Anion gap [Moles/Vol] 11 9-18 mmol/L Normal 06-08-20 [facility] (90380) Comment: Performed By: #### LIP #### [address] [address] Calcium [Mass/Vol] 9.6 8.5-10.2 mg/dL Normal 06-08-2020 [facility] (12269) Comment: Performed By: #### LIP #### [address] [address] Chloride [Moles/Vol] 104 97-105 mmol/L Normal 0 [facility] (22286) Comment: Performed By: #### LIP #### [facility] [address] [place], [place] [address] CO2 Blood 25 22-30 mmol/L Normal 06-08-2020 [facility] (23867) Comment: Performed By: #### LIP #### [facility] [address] [place], [place] [address] Creatinine [Mass/Vol] 0.80 0.58-0.96 mg/dL Normal 06-08-20 [facility] (00 000) Comment: Performed By: #### LIP #### [facility] [address] [place], [place] [address] Glucose [Mass/Vol] 91 74-99 mg/dL Normal 06-08-2020 [facility] (11696) Comment: Result Comment: The [place] Diabetes Association (ADA) provides guidance for cutoff [...] Standards of Medical Care in Diabetes 2016; [place] Diabetes Association. Diabetes Care. 2016;39(Suppl 1). Performed By: #### LIP #### [facility] [address] [place], [place] [address] Potassium [Moles/Vol] 3.7 3.7-5.1 mmol/L Normal 06-08-20 20 [facility] (00 000) Comment: Performed By: #### LIP #### [facility] [address] [place], [place] [address] Sodium [Moles/Vol] 140 136-144 mmol/L Normal 06-08-2020 [facility] (01183) Comment: Performed By: #### LIP #### [facility] [address] [place], [place] [address] Urea nitrogen [Mass/Vol] 13 7-21 mg/dL Normal 06-08 [facility] (75093) Comment: Performed By: #### LIP #### [facility] [address] [place] [id number] allied health on 03-06-25 ALLIED HEALTH HNO ID: [id number] Normal 020 [facility] Author: Deepa (Rt) [facility] ([id number]) Service: Radiology Author Type: Plastic Molder Type: Allied Health Filed: 06/08/2020 7:02 PM Note Text: Spoke to Garo (RN), in regards to her itching and scratching after the MRI was completed. Garo informed me that she had been itching an d scratching all day. Garo came down and gave the patient medication for the itching and took her back to the room. Kelley Noriega [facility] HNO ID: [id number] Normal 020 [facility] Author: Deepa Mcintosh) [facility] ([id number][facility] Service: Radiology Author Type: Plastic Molder Type: Allied Health Filed: 06/08/2020 5:56 PM [...] TIME: 5:53 PM ALLIED HEALTH HNO ID: [id number] Normal 020 [facility] Author: Deepa (Rt) [facility] ([id number]) Service: Radiology Author Type: Plastic Molder Type: Allied Health Filed: 06/08/2020 4:21 PM Note Text: Called RN to get MRI order changed to w/wo per radiology pro tocol. Patient is not listed as allergy to gadolinium and creat is WNL. Mira l schedule STAT MRI as soon as order is changed activated ptt on 03-06-25 aPTT Coag (Bld) [Time] 30.5 23.0-32.4 sec Normal 020 [facility] (00 000) Comment: Result Comment: Unfractionat [...] AP TT reagent in use throughout the [facility]. Performed By: #### GFR #### [facility] [address] [place] [address] hosp on 2020-06-07 HOSP Patient:Sally Mcgregor Normal 05-16 [facility] MRN: General Height:5' 1(1.549 m) Medical Weight:197 lb 9.6 oz (89.631 kg) Center Outpatient Medications as of 06/11/20: ([id number]) prazosin (MINIPRESS) 1 mg cap hyoscyamine (LEVSIN) [...] the resident's [facility] and/or additions: Admit for symptomatic hepatic cyst. Plan for cyst fenestrati on on Thursday. Signature: Mala Almendarez MD Date: 06/08/2020 Time: 7:09 PM HISTORY AND PHYSICAL EXAMINATION SERVICE DATE: 06/08/2020 SERVICE TIME: 7:12 AM Subjective CHIEF COMPLAINT: Abdominal Pain HPI: 39 year old female presents as a direct adm ission to [facility] with abdominal pain and a known [...] Benign liver cyst 05/24/2010 CT scan at [facility] 11/2009 and 04/2010 showe 4 mm increase in size . No pain. No elevated LFTs on 03/11/2010. - Calculus of kidney 05/17/[address] Nicolas: Hospitalized age 20, a nd again later -- no procedures so far ([facility], [facility], 1995 [facility]) - Cancer (HCC) - Diverticulosis - [...] removed - TOTAL ABDOM HYSTERECTOMY 08/31/06 Hysterectomy, [facility] Problem Relation Age of [...] Approx. 3 cigarettes daily-1 pack every w paimiut Substance Use Topics - Alcohol use: Yes [...] questions or concerns Thu-Thu 6a-5p please page [phone]. After 5pm and on Weekends an d Holidays, please page [phone] if in ICU or [phone] if on RNF. 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: To return home to life as it was Health Insurance: [facility] Issues Impacting Discharge Plan: Uncontrolled Uncontrolled: History [...] completed Advance Directive: Current Advance Directive: None Maintenance Mgr Attempted to Assist with AD Completion: Yes [...] Patient Currently Receive Any Community Services or [facility] e Care?: None Equipment Prior to [...] Completely I feel financially burdened by my ffa-ip-sntsvc expens es for my prescription medication:: 0 - Disagree Completely Risk Score: 0 Patient is categorized as: Low risk < 2 Are you interested in bedside delivery of your medications? Yes Is Patient Psychosocially Complex?: No ASSESSMENT AND PLAN: Medical Needs: Medical Needs: Two or more chronic diseases Psychosocial Needs: Psychosocial Needs: None FREEDOM OF CHOICE EXPLAINED: [place] of Choice Given: No Reason Not Given: [...] 08, 2020 TIME: 10:50 AM PAGER/CONTACT #: [phone] Jasmine Chavez, RN 06/08/2020 10:56 AM Signed Nursing Progress Note Patient Name: Sally Mcgregor Patient Location: [place] [address] [address] Spoke with Doctor Jennings regarding IV con [...] soon as order is changed RT Masoud, Walk-in 06/08/2020 5:56 PM Signed Radiology Service Progress [...] questions or concerns Thu-Thu 6a-5p please page [phone]. After 5pm and on Weekends and Holidays, please page [phone]. SUBJECTIVE: NAEON. Afebrile. Patient resting in bed [...] 06/08/[address] - 06/09/2065806/09/20699 - 06/10/20 0659 Shift 5735-2425 1046-4174 23 00-0659 24 Hour Total 9390-5935 3252-4897 9849-4637 24 Hour Total INTAKE Shift Total OUTPUT [...] (TYLENOL) 975 mg ORAL q 6 H [facility] N - oxyCODONE IR 5-10 mg tab(s) [...] questions or concerns Thu-Thu 6a-5p please page [phone]. After 5pm and on Weekends an d Holidays, please page [phone] if in ICU or [phone] if on RNF. Mer Bejarano, RN, RN [...] questions or concerns Mon-Fri 6a-5p please page [phone]. After 5pm and on Weekends and Holidays, please page [phone]. SUBJECTIVE: NAEON. Afebrile. Patient resting in bed [...] - 06/10/20 0606/10/20699 - 06/11/20 0659 Shift 6406-6016 2537-6473 23 00-0659 24 Hour Total 1572-4431 7702-5808 8407-4472 24 Hour Total INTAKE PO 590 416 0529 PO 308 937 3428 Shift Total 017 820 8951 OUTPUT Urine Urine Not Saved. 2 x [...] questions or concerns Thu-Thu 6a- please page [phone]. After 5pm and on Weekends an d [...] 2020 Notes: Pre-surgery Patient Nothing needed tonight. Clinical Project Leader Signature: Chaplain Erick To contact the Spiritual Care Department: Please call [phone] or Page the On-Call Clinical Project Leader at pag er [phone] Thank you for the opportunity to be of service. This is an electronically created document. IF PRINTED, PLEASE DO NOT REMOVE FROM THE CHART OR MODIFY VA INTED COPY. Kimmie Jennings DO 06/11/2020 7:03 AM Cosign Needed Elective General Surgery Progress Note SERVICE DATE: 06/11/2020 Elect[facility] General Surgery Service Pager: For questions or concerns Thu-Thu 6a- please page [phone]. After 5pm and on Weekends and Holidays, please page [phone]. SUBJECTIVE: NAEON. Afebrile. Patient resting in bed [...] 06/10/20699 - 06/11/2065806/11/20699 - 06/12/20 0659 Shift 0939-1247 0180-3061 23 00-0659 24 Hour Total 8629-5652 9130-8493 6111-4592 24 Hour Total INTAKE PO 600 600 [...] questions or concerns Thu-Thu 6a-5p please page [phone]. After 5pm and on Weekends an d [...] SIGNATURE: Britni Grimaldo RN PATIENT NAME: Sally jamse DATE: June 11, 2020 TIME: 9:10 AM PAGER/CONTACT #: [phone] Ruben Thompson MD 06/11/2020 9:51 AM Signed [...] Benign liver cyst 05/24/2010 CT scan at [facility] 11/2009 and 04/2010 showe 4 mm increase in size . No pain. No elevated LFTs on 03/11/2010. - Calculus of kidney 05/17/[address] Nicolas: Hospitalized age 20, a nd again later -- no procedures so far [facility]) - Cancer (HCC) - Diverticulosis - [...] removed - TOTAL ABDOM HYSTERECTOMY 08/31/06 Hysterectomy, [facility] Problem Relation Age of [...] Approx. 3 cigarettes daily-1 pack every w paimiut Substance Use Topics - Alcohol use: Yes [...] INTRAVENOUS q 3 H PRN Nigel (Res) [place] 1 mg at 0536 - [MAR Hold [...] June 11, 2020 TIME: 9:49 AM CSN: [id number] Progress Notes ([facility]): Johnny Winn MD 06/06/2020 10:30 AM [...] ysts. All questions answered. MD [facility]bek[facility] 06/06/2020 10:53 AM Signed Patient is calling back with additional questions after speaking with Dr. Winn today. Please call patient. cnpn on 2020-06-06 CNPN Telephone (GSTNOR) Normal 06-06-2020 [place] [facility] SAMSALLY ([id number]) 1980 [facility] Date Time Provider Department ([id number]) 06/06/20 JOHNNY WINN GSTNOR During your visit [...] ysts. All questions answered. MD [facility]bekah Cunningham [facility] Pss 06/06/2020 10:53 AM Signed Patient [...] Order(s):CONSULT TO ALLERGY/IMMUNOLOGY [ 9001] Order #: [id number]: 1 FUTURE Prescriptions as of 06/06/2020 Sig: [...] 06/06/20 progress on 2020-05 PROGRESS HNO ID: [id number] Normal 06-05-2020 [facility] Author: Mala sosa ([id number]) Service: ? Author Type: Physician Type: Progress [...] MD progress on 2020-05 PROGRESS HNO ID: [id number] Normal 06-01-2020 [facility] Author: Branden PickardNetwork Navigator) Amalia Mata ([id number]) Service: ? Author Type: Construction Economist Type: Progress Notes Filed: 06/01/2020 12:42 PM Note Text: Patient has follow up with next Thursday for Pancreatitis. progress on 2020-05 PROGRESS HNO ID: [id number] Normal 05-31-2020 [facility] Author: Marcelino Mejia [place] ([id number]) Service: ? 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 She has been seeing them for recurring pancreatit is and stomach issues. I have nothing further I can add to her care at this time. PROGRESS HNO ID: [id number] Normal 05-31-2020 [facility] Author: Branden (Network Navigator) Amalia [place] ([id number]) Service: ? Author Type: Construction Economist Type: Progress Notes Filed: 05/31/2020 8:49 AM [...] appointment. Thank you SUMMARY: Pt discharged from [facility] on May 29, 2020 Admitted for: Intractable nausea and vomitting Contact made with patient: Yes Hi my name is ANDRE Graham and I am calling from the [facility] on behalf of your PCP, Marcelino Mejia [...] like to speak with a social work child care team lead to help give you support for any [...] I will send your request to a flight crew scheduler who will contact and assist you [...] out to patient to assist with scheduling INSPECTOR WIRE ROPE: Patient Mira status is: Active account Thank [...] on 2020-05-31 CNPN Telephone (GSTNOR) Normal 05-31-2020 [place] [facility] SALLY MCGREGOR ([id number]) 1980 [facility] Date Time Provider Department ([id number]) 05/31/20 JOHNNY WINN GSTNOR During your visit today, we recorded the following informati on about you: Pierce Sunil Cates 05/31/2020 2:37 PM Signed Patient call, said she was doing ok yesterday, today having epigastric abdominal pain, nausea and vomiting. Has appt [facility] Dr. Almendarez next week. Advised ER [...] Reviewed: 05/28/2020 Reviewed by: Esperanza Naranjo) VIN eCrda - Fully Assessed Reason for Visit: Patient [...] 05/31/20 progress on 2020-05 PROGRESS HNO ID: [id number] Normal 05-30-2020 [facility] Author: Allie (Network Navigator) Skyler Mata ([id number]) Service: ? Author Type: Construction Economist Type: Progress Notes Filed: 05/31/2020 8:49 AM Note Text: TRANSITIONAL CARE MANAGEMENT (TCM) COMMUNITY MONITORING PROG BRITTANI Provider Action/FYI: Message left for patient. Attempting to schedule TCM appoint ment SUMMARY: Pt discharged from [facility] on 05[facility]. Admitted for: intractable nausea and vomiting Contact made with patient: No - scheduled next outreach for next business day in the Track Pt Outreach section Outreach ended cnptoutreach on CNPTOUTREACH Patient Outreach (FAMPWS) Normal 0 05-30-2020 [place] SALLY Martinez ([id number]) 1980 F [place] Date Time Provider Department ([id number]) 05/30/20 ALLIE CHOWDHURY (NETWORK NAVIGATOR)RAMA During your visit today, we recorded the following informati on about you: ANDRE Sorensen 05/31/2020 8:49 AM Signed TRANSITIONAL CARE MANAGEMENT (TCM) COMMUNITY MONITORING PROG BRITTANI Provider Action/FYI: Message left for patient. Attempting to schedule TCM appoint ment SUMMARY: Pt discharged from [facility] on 05/29. Admitted for: intractable nausea and vomiting Contact made with patient: No - scheduled next o [facility] for next day in the Track [...] appointment. Thank you SUMMARY: Pt discharged from [facility] on May 29, 2020 Admitted for: Intractable nausea and vomitting Contact made with patient: Yes Hi my name is ANDRE Graham and I am calling from the [facility] on behalf of your PCP, Marcelino Mejia [...] like to speak with a social work child care team lead to help give you support for any [...] I will send your request to a flight crew scheduler who will contact and assist you [...] out to patient to assist with scheduling INSPECTOR WIRE ROPE: Patient Mira status is: Active account Thank [...] 05/31/2020 10:49 AM Signed Patient has a superintendent institution and would work on getting her back [...] Assessed Reason for Visit: Transition Of Care [7224] Cmt: milka, perlita 05/29. initi al outreach [...] 05/31/20 progress on 2020-05 PROGRESS HNO ID: [id number] Normal 05-29-2020 [place] Author: Vickie Srivastava [facility] Service: Hospital Medicine Medical Author Type: Resident Center Type: Progress Notes ([id number]) Filed: 05/29/2020 2:51 PM Note Text: Attestation [...] PM: You may reach the House Medicine leadership program internship currently assigned to this patient by jack mahoney their pager number on the treatment team (they will be assigned as the i ntern or resident). It is the last four digits in the phone number be ginning with ([phone]). We encourage the use of [employer] Secure Chat. SUBJECTIVE HPI: 39 year old F PMHx idiopathic pancreatitis, hepatic cys ts presenting to the ED with intractable nausea and vomiting as well as RU Q abdominal pain for the past 3 days. States that she called her GI doct or Dr. Winn and he told her to come into the ED. She has a scope [facility] ed for 05/[address] Winn. Was [...] DAILY 05/25/201935 -- 05/25/201944 pneumatic compression stockings (md,oh) VTE Prophylaxis: VTE prophylaxis appropriate GI Prophylaxis: Indicated due to chronic acid suppression th erapy as an outpatient Telemetry: no Disposition: Home Code Status: Not on file Plan of care discussed with: Provider, RN, Patient SIGNATURE: Vickie Srivastava MD PATIENT NAME: Sally shannon DATE: May 29, 2020 TIME: 1:53 PM plan of care on PLAN OF CARE HNO ID: [id number] Normal 05-29-20 [facility] Author: Felix Foster (Pharmacist) Center ([id number]) Service: Pharmacy Author Type: Pharmacist Type: Plan of Care Filed: 05/29/2020 2:49 PM Note Text: MEDICATION RECONCILIATION Patient Name:Marlen Mcgregor : 1980 Reconciliation: Yes All CARPENTRY INSTRUCTOR medications addressed by LIP Additional comments: aggree with student note Allergies: ALLERGIES Allergen Reactions - Penicillins Rash - Cephalexin Itching - Chlorhexidine Rash Skin rash - Toradol [Ketorolac] Rash - Tramadol Rash - Asa [Salicylates] Other: See Comments ulcers - Contrast Dye [Iodin* Shortness of Breath - Ibuprofen GI Upset - Prednisone Other: See Comments makes agitated and mean Preferred Pharmacy: [facility] Current CARPENTRY INSTRUCTOR Medications: Prior to Admission medications as of 05/29/20 0928 Medication Sig Last Dose Taking prazosin (MINIPRESS) 1 mg cap Take 1 mg by mouth daily at [facility]. Yes hyoscyamine (LEVSIN) 0.125 mg [...] 2:47 PM PLAN OF CARE HNO ID: [id number] [place] 05-29-20 [facility] Author: Felix Foster (Pharmacist) [employer] ([id number]) Service: Pharmacy Author Type: Pharmacist Type: Plan [...] CORADO May 29, 2020 2:50 PM Pager: [phone] 05/29/2020 2:50 PM Medication List START taking [...] Your Medications These medications were sent to [facility]/pharmacy [id number] [place] [address] - [address] [phone] [address] [address] [facility] [address] ? oxyCODONE IR 5 mg immediate release tablet PLAN OF CARE HNO ID: [id number] [place] 05-29-20 [facility] Author: Felix Foster (Pharmacist) Center ([id number]) Service: Pharmacy Author Type: Pharmacist Type: Plan of Care Filed: 05/29/2020 2:47 PM Note Text: MEDICATION HISTORY Patient Name:Marlen Mcgregor : 1980 Source of history:Patient: Reliability of source: Appears re liable, clearly identified: Medication name, Medication frequency an d Timing of last dose and Pharmacy records: [id number] in [place], [place] [phone] Medication Nonadherence Identified: No barriers noted The above information represents the best possible medicatio n history: Yes Additional comments: Confirmed with patient and pharmacist hanna t [facility] - Recent changes to medications outpatient from Dr. Winn, patient did not start Sucralfate and Promethazine prior to admission and only took 1 dose of Hyoscyamine prior to admission Ycpcb-pa-Opvqgbehj Medication List Adjustments: Medication Regimen Changes: Promethazine [...] Comments makes agitated and mean Preferred Pharmacy: [facility] #[id number] phone [phone] Current CARPENTRY INSTRUCTOR Medications: Prior to Admission medications as of 05/29/20 0925 Medication Sig Last Dose Taking prazosin (MINIPRESS) 1 mg cap Take 1 mg by mouth daily at [facility]. Yes hyoscyamine (LEVSIN) 0.125 mg tablet [...] stomach, 1/2 hr before meal. Maggi Hernandez (Breakfast Supervisor) May 29, 2020 9:14 AM mdrd gfr on 2020-05 GFR/1.73 sq M >60 >60mL/min/1.73m2 mL/min/{1.73_m2} Normal [facility] among [facility] non-blacks MDRD (000 00) (S/P/Bld) [Vol rate/Area] Comment: Result Comment: If the patie nt is , multiply the result by 1.210. Performed By: #### GFR #### [address] [address] hemogram on 2020-05 Erythrocyte distribution 13.2 11.7-14.4 % Normal 05-29 [facility] width (RBC) [Ratio] System (39602) Comment: Performed By: #### LIP #### [address] [address] Hematocrit (Bld) [Volume 36.1 34.1-44.9 % Normal 05-29 [employer] fraction] System (00 000) Comment: Performed By: #### LIP #### [address] [address] Hemoglobin (Bld) 11.5 11.2-15.7 g/dL Normal 05-29-2020 [facility] [Mass/Vol] System (0 0000) Comment: Performed By: #### LIP #### [address] [address] MCH (RBC) [Entitic mass] 29.0 25.6-32.2 pg Normal 05-29 [facility] (00 000) Comment: Performed By: #### LIP #### [address] [address] MCHC (RBC) [Mass/Vol] 31.9 31.6-34.8 % Normal 05-29-20 20 [facility] (10540) Comment: Performed By: #### LIP #### [facility] [address] [place], [place] [address] MCV (RBC) [Entitic vol] 90.9 79.4-94.8 fl Normal 2019 [facility] (00 000) Comment: Performed By: #### LIP #### [facility] [address] [place], [place] [address] Platelet mean volume (Bld) 10.9 9.4-12.3 fl Normal [facility] [Entitic vol] System ([id number]) Comment: Performed By: #### LIP #### [facility] [address] [place], [place] [address] Platelets (Bld) [#/Vol] 223 182-369 thou/cmm Normal 2019 [facility] (00 000) Comment: Performed By: #### LIP #### [facility] [address] [place], [place] [address] RBC (Bld) [#/Vol] 3.97 3.93-5.22 mil/cmm Normal 05-29-2020 [facility] (00 000) Comment: Performed By: #### LIP #### [facility] [address] [place], [place] [address] RDW SD 43.5 36.4-46.3 fl Normal 05-29-2020 [facility] (53653) Comment: Performed By: #### LIP #### [facility] [address] [place], [place] [address] WBC (Bld) [#/Vol] 5.88 3.98-10.04 thou/cmm Normal 05-29-2020 [facility] (00 000) Comment: Performed By: #### LIP #### [facility] [address] [place], [place] [address] consult on CONSULT HNO ID: [id number] Normal 05-29-2020 [facility] Author: Maria Luisa Joyner [facility] Service: Pain Management ([id number]) Author Type: Physician Type: Consults Filed: 05/29/2020 11:10 AM Note Text: SALLY MCGREGOR 39 year old PAIN CONSULTATION: Abdominal pain, history of idiopathic verdugo creatitis. 24 HOUR COMFORT MEDICATIONS: Tylenol x0 Benadryl 50 mg x 2 Phenergan 25 mg x 2 Oxycodone 10 mg x 3 Quetiapine 100 mg daily [place] prescription history Shows occasional use of opiates, [...] hepatic cysts, and no evidence of ac [place] pancreatitis with normal lipase, and CBC. At [...] (TYLENOL) 650 mg ORAL q 4 H [facility] Johnny Winn - prazosin (MINIPRESS) 1 [...] Approx. 3 cigarettes daily-1 pack every w paimiut Substance Use Topics - Alcohol use: Yes [...] gap [Moles/Vol] 11 9-18 mmol/L Normal 05-29-20 [facility] (98019) Comment: Performed By: #### LIP #### [facility] [address] [place], [place] [address] Calcium [Mass/Vol] 8.8 8.5-10.2 mg/dL Normal 05-29-2020 [facility] (31838) Comment: Performed By: #### LIP #### [facility] [address] [place], [place] [address] Chloride [Moles/Vol] 104 97-105 mmol/L Normal 0 [facility] (08875) Comment: Performed By: #### LIP #### [facility] [address] [place], [place] [address] CO2 Blood 23 22-30 mmol/L Normal 05-29-2020 [facility] (33969) Comment: Performed By: #### LIP #### [facility] [address] [place], [place] [address] Creatinine [Mass/Vol] 0.78 0.58-0.96 mg/dL Normal 05-29-20 [facility] (00 000) Comment: Performed By: #### LIP #### [facility] [address] [place], [place] [address] Glucose [Mass/Vol] 88 74-99 mg/dL Normal 05-29-2020 [facility] (17871) Comment: Result Comment: The [place] Diabetes Association (ADA) provides guidance for cutoff [...] Standards of Medical Care in Diabetes 2016; [place] Diabetes Association. Diabetes Care. 2016;39(Suppl 1). Performed By: #### LIP #### [facility] [address] [place], [place] [address] Potassium [Moles/Vol] 3.4 3.7-5.1 mmol/L Low 05-29-20 [facility] (80132) Comment: Performed By: #### LIP #### [facility] [address] [place] [address] Sodium [Moles/Vol] 138 136-144 mmol/L Normal 05-29-2020 [facility] (81788) Comment: Performed By: #### LIP #### [facility] [address] [place] [address] Urea nitrogen [Mass/Vol] 6 7-21 mg/dL Low 05-29 [facility] (52632) Comment: Performed By: #### LIP #### [facility] [address] [place] [address] surgical tissue exam on 2020-05-28 Surgical Tissue Test performed at [facility] Normal 05-28-2020 [facility] [address] [place] [address] ([id number]) NAME: SALLY MCGREGOR REQUESTING: JOHNNY WINN MD [...] 1 Comment: Performed By: #### LIP #### [facility] [address] [place] [address] pt ed on 2020-05-28 PT ED HNO ID: [id number] Normal 05-28-2020 [facility] Author: Flakita Ragland RN Center ([id number]) Service: Nursing Author Type: Registered Nurse Type: [...] Flakita Ragland RN PT ED HNO ID: [id number] [place] 05-28-2020 [facility] Author: Flakita Ragland RN [employer] ([id number]) Service: Nursing Author Type: Registered Nurse Type: [...] RN progress on 2020-05 PROGRESS HNO ID: [id number] [place] 05-28-2020 [facility] Author: Vickie Beck [facility] Service: Hospital Medicine Medical Author Type: Resident Center Type: Progress Notes ([id number]) Filed: 05/28/2020 1:52 PM Note Text: Attestation [...] PM: You may reach the House Medicine leadership program internship currently assigned to this patient by findin g their pager number on the treatment team (they will be assigned as the i ntern or resident). It is the last four digits in the phone number be ginning with ([phone]). We encourage the use of [employer] Secure Chat. SUBJECTIVE HPI: 39 year old F PMHx idiopathic pancreatitis, hepatic cys ts presenting to the ED with intractable nausea and vomiting as well as RU Q abdominal pain for the past 3 days. States that she called her GI doct or Dr. Winn and he told her to come into the ED. [facility] has a [facility] for [facility] Winn. Was [...] operative no on OPERATIVE NO HNO ID: [id number] Normal 05-28-20 [facility] Author: [facility] Service: Gastroenterology ([id number]) Author Type: Physician Type: Operative Report Filed: 05/28/2020 1:07 PM Note Text: OPERATIVE/PROCEDURE REPORT LOG ID: [id number] Surgery/Procedure Date: 05/28/2020 Incision/Procedure Start Time: 12:32 PM Incision Close/Procedure End Time: 1:00 PM Surgeon(s)/Proceduralist(s) and Senior Architect(s): Surgeon(s) and Role: * [facility] - Primary No Additional Staff Procedure(s): [...] PPI. nursing prog on NURSING HNO ID: [id number] Normal 05-28-2020 [facility] Author: Rupal (Rn) VIN [facility] Service: [...] Erythrocyte distribution 13.2 11.7-14.4 % Normal 05-28 [facility] width (RBC) [Ratio] System (67203) Comment: Performed By: #### LIP #### [facility] [address] [place], [place] [address] Hematocrit (Bld) [Volume 32.2 34.1-44.9 % Low 05-28 [facility]] System (00 000) Comment: Performed By: #### LIP #### [facility] [address] [place], [place] [address] Hemoglobin (Bld) [Mass/Vol] 10.1 11.2-15.7 g/dL Low [employer] [facility] (00 000) Comment: Performed By: #### LIP #### [facility] [address] [place], [place] [address] MCH (RBC) [Entitic mass] 28.5 25.6-32.2 pg Normal 05-28 [facility] (00 000) Comment: Performed By: #### LIP #### [facility] [address] [place], [place] [address] MCHC (RBC) [Mass/Vol] 31.4 31.6-34.8 % Low 05-28-20 20 [employer] System (93414) Comment: Performed By: #### LIP #### [facility] [address] [place], [place] [address] MCV (RBC) [Entitic vol] 90.7 79.4-94.8 fl Normal 2019 [facility] (00 000) Comment: Performed By: #### LIP #### [facility] [address] [place] [address] Platelet mean volume (Bld) 10.7 9.4-12.3 fl Normal [facility] [Entitic vol] System (07480) Comment: Performed By: #### LIP #### [facility] [address] [place] [id number] Platelets (Bld) [#/Vol] 186 182-369 thou/cmm Normal 2019 [facility] (00 000) Comment: Performed By: #### LIP #### [facility] [address] [place] [address] RBC (Bld) [#/Vol] 3.55 3.93-5.22 mil/cmm Low 05-28-2020 [facility] (32189) Comment: Performed By: #### LIP #### [facility] [address] [place] [address] RDW SD 43.3 36.4-46.3 fl Normal 05-28-2020 [facility] (54773) Comment: Performed By: #### LIP #### [facility] [address] [place] [id number] WBC (Bld) [#/Vol] 6.36 3.98-10.04 thou/cmm Normal 05-28-2020 [facility] (00 000) Comment: Performed By: #### LIP #### [facility] [address] [place] [address] consult on CONSULT HNO ID: [id number] Normal 05-28-2020 [facility] Author: Ramone [facility] Service: Pain Management ([id number]) Author Type: Physician Type: Consults Filed: 05/28/2020 9:09 AM Note Text: SALLY MCGREGOR 39 year old PAIN CONSULTATION: Abdominal pain, history of idiopathic verdugo creatitis. 24 HOUR COMFORT MEDICATIONS: Oxycodone 10 mg x 3 Quetiapine 100 mg daily [place] prescription history Shows occasional use of opiates, [...] hepatic cysts, and no evidence of ac [place] pancreatitis with normal lipase, and CBC. At this time, not experiencing any fever, chills, sweats, he matemesis, hematochezia, additional GI, , constitutional, pulmonary, or other symptoms. Current Facility-Administered Medications Medication Dose Route Frequency Provider Last Rate Last Dose - oxyCODONE IR 10 mg tab(s) (ROXICODONE) 10 mg ORAL q 6 H [facility] Maggi (Res) MD Mark 10 mg [...] q 4 H PRN Maggi (Kiran) MD Mrak - estradiol 2 mg tab(s) (ESTRACE) 2 [...] (TYLENOL) 650 mg ORAL q 4 H [facility] Eduar (Res) Metry - hyoscyamine (LEVSIN) [...] Approx. 3 cigarettes daily-1 pack every w paimiut Substance Use Topics - Alcohol use: Yes [...] gap [Moles/Vol] 8 9-18 mmol/L Low 05-28-20 [facility] (52381) Comment: Performed By: #### LIP #### [facility] [address] [place] [address] Calcium [Mass/Vol] 7.2 8.5-10.2 mg/dL Low 05-28-2020 [facility] (23351) Comment: Performed By: #### LIP #### [facility] [address] [place], [place] [address] Chloride [Moles/Vol] 111 97-105 mmol/L High 0 [facility] (95480) Comment: Performed By: #### LIP #### [facility] [address] [place], [place] [address] CO2 Blood 22 22-30 mmol/L Normal 05-28-2020 [facility] (63378) Comment: Performed By: #### LIP #### [facility] [address] [place], [place] [address] Creatinine [Mass/Vol] 0.69 0.58-0.96 mg/dL Normal 05-28-20 [facility] (00 000) Comment: Performed By: #### LIP #### [facility] [address] [place], [place] [address] Glucose [Mass/Vol] 73 74-99 mg/dL Low 05-28-2020 [facility] (86031) Comment: Result Comment: The [place] Diabetes Association (ADA) provides guidance for cutoff [...] Standards of Medical Care in Diabetes 2016; [place] Diabetes Association. Diabetes Care. 2016;39(Suppl 1). Performed By: #### LIP #### [facility] [address] [place], [place] [address] Potassium [Moles/Vol] 2.9 3.7-5.1 mmol/L Low 05-28-20 [facility] (10510) Comment: Performed By: #### LIP #### [facility] [address] [place], [place] [address] Sodium [Moles/Vol] 141 136-144 mmol/L Normal 05-28-2020 [facility] (13110) Comment: Performed By: #### LIP #### [facility] [address] [place], [place] [address] Urea nitrogen [Mass/Vol] 5 7-21 mg/dL Low 05-28 [facility] (45229) Comment: Performed By: #### LIP #### [facility] [address] [place], [place] [address] anes preop on 05-28 ANES PREOP HNO ID: [id number] Normal 05-28-2020 [facility] Author: Delon [facility] Service: Anesthesiology ([id number]) Author Type: Physician Type: Anesthesia PreOp Filed: [...] Benign liver cyst 05/24/2010 CT scan at [facility] 11/2009 and 04/2010 showe 4 mm increase in size . No pain. No elevated LFTs on 03/11/2010. - Calculus of kidney 05/17/[address] Nicolas: Hospitalized age 20, and again later -- no procedures so far ([facility], [facility], 1995 [facility]) - Cancer (HCC) - Diverticulosis - [...] removed - TOTAL ABDOM HYSTERECTOMY 08/31/06 Hysterectomy, [facility] H[facility] Problem Relation Age of [...] Approx. 3 cigarettes daily-1 pack every w paimiut Substance Use Topics - Alcohol use: Yes [...] May 28, 2020 TIME: 12:15 PM CSN: [id number] anes post on 0 -14 ANES POST HNO ID: [id number] Normal 05-28-2020 [facility] Author: Delon Duenas [employer] ([id number]) Service: Anesthesiology Author Type: Physician Type: Anesthesia [...] 1001 progress on 2020-05 PROGRESS HNO ID: [id number] [place] 05-27-2020 [facility] Author: Vickie Srivastava [facility] Service: Hospital Medicine Medical Author Type: Resident Center Type: Progress Notes ([id number]) Filed: 05/27/2020 4:19 PM Note Text: Attestation [...] PM: You may reach the House Medicine leadership program internship currently assigned to this patient by findin g their pager number on the treatment team (they will be assigned as the i ntern or resident). It is the last four digits in the phone number be ginning with ([phone]). We encourage the use of [employer] Secure Chat. SUBJECTIVE HPI: 39 year old F PMHx idiopathic pancreatitis, hepatic cys ts presenting to the ED with intractable nausea and vomiting as well as RU Q abdominal pain for the past 3 days. States that she called her GI doct or Dr. Winn and he told her to come into the ED. She has a scope [facility] ed for 05/[address] Winn. Was [...] DAILY 05/25/201935 -- 05/25/201944 pneumatic compression stockings (md,dc) VTE Prophylaxis: VTE prophylaxis appropriate GI Prophylaxis: Indicated due to chronic acid suppression th erapy as an outpatient Telemetry: no Disposition: Home Code Status: Not on file Plan of care discussed with: Provider, RN, Patient SIGNATURE: Vickie Srivastava MD PATIENT NAME: Sally shannon DATE: May 27, 2020 TIME: 1:53 PM plan of care on PLAN OF CARE HNO ID: [id number] Normal 05-27-20 [facility] Author: Joe Romero) [facility] Service: Gastroenterology ([id number]) Author Type: Physician Senior Architect Type: Plan of Care Filed: 05/27/2020 1:17 [...] (TYLENOL) 650 mg ORAL q 4 H [facility] - oxyCODONE IR 10 mg tab(s) (ROXICODONE) 10 mg ORAL q 6 H [facility] N Objective PHYSICAL EXAM: VITALS:BP 119/74 Pulse [...] 27, 2020 TIME: 1:15 PM PAGER/CONTACT #: Junior Engineer Pager hemogram on 2020-05 Erythrocyte distribution 13.3 11.7-14.4 % Normal 05-27 [employer] width (RBC) [Ratio] System (49671) Comment: Performed By: #### LIP #### [facility] [address] [place], [place] [address] Hematocrit (Bld) [Volume 35.9 34.1-44.9 % Normal 05-27 [employer] fraction] System (00 000) Comment: Performed By: #### LIP #### [facility] [address] [place], [place] [address] Hemoglobin (Bld) 11.3 11.2-15.7 g/dL Normal 05-27-2020 [employer] [facility] [Mass/Vol] System (0 0000) Comment: Performed By: #### LIP #### [facility] [address] [place], [place] [address] MCH (RBC) [Entitic mass] 29.1 25.6-32.2 pg Normal 05-27 [facility] (00 000) Comment: Performed By: #### LIP #### [facility] [address] [place], [place] [address] MCHC (RBC) [Mass/Vol] 31.5 31.6-34.8 % Low 05-27-20 20 [facility] (19811) Comment: Performed By: #### LIP #### [address] [address] MCV (RBC) [Entitic vol] 92.5 79.4-94.8 fl Normal 2019 [facility] (00 000) Comment: Performed By: #### LIP #### [facility] [address] [place], [place] [address] Platelet mean volume (Bld) 10.6 9.4-12.3 fl Normal [facility] [Entitic vol] System (72014) Comment: Performed By: #### LIP #### [facility] [address] [place], [place] [address] Platelets (Bld) [#/Vol] 197 182-369 thou/cmm Normal 2019 [facility] (00 000) Comment: Performed By: #### LIP #### [facility] [address] [place] [id number] RBC (Bld) [#/Vol] 3.88 3.93-5.22 mil/cmm Low 05-27-2020 [facility] (50149) Comment: Performed By: #### LIP #### [facility] [address] [place] [address] RDW SD 44.6 36.4-46.3 fl Normal 05-27-2020 [facility] (31211) Comment: Performed By: #### LIP #### [facility] [address] [place], [place] [address] WBC (Bld) [#/Vol] 6.15 3.98-10.04 thou/cmm Normal 05-27-2020 [facility] (00 000) Comment: Performed By: #### LIP #### [facility] [address] [place] [id number] basic metabolic panel on 2020-05-27 Anion gap [Moles/Vol] 10 9-18 mmol/L Normal 05-27-20 [facility] (21238) Comment: Performed By: #### LIP #### [facility] [address] [place] [id number] Calcium [Mass/Vol] 8.6 8.5-10.2 mg/dL Normal 05-27-2020 [facility] (02987) Comment: Performed By: #### LIP #### [facility] [address] [place] [id number] Chloride [Moles/Vol] 106 97-105 mmol/L High 0 [facility] (68177) Comment: Performed By: #### LIP #### [facility] [address] [place], [place] [address] CO2 Blood 24 22-30 mmol/L Normal 05-27-2020 [facility] (95072) Comment: Performed By: #### LIP #### [facility] [address] [place], [place] [address] Creatinine [Mass/Vol] 0.87 0.58-0.96 mg/dL Normal 05-27-20 [facility] (00 000) Comment: Performed By: #### LIP #### [facility] [address] [place], [place] [address] Glucose [Mass/Vol] 82 74-99 mg/dL Normal 05-27-2020 [facility] (26800) Comment: Result Comment: The [place] Diabetes Association (ADA) provides guidance for cutoff [...] Standards of Medical Care in Diabetes 2016; [place] Diabetes Association. Diabetes Care. 2016;39(Suppl 1). Performed By: #### LIP #### [facility] [address] [place], [place] [address] Potassium [Moles/Vol] 3.5 3.7-5.1 mmol/L Low 05-27-20 20 [facility] (38886) Comment: Performed By: #### LIP #### [facility] [address] [place], [place] [address] Sodium [Moles/Vol] 140 136-144 mmol/L Normal 05-27-2020 [facility] (33445) Comment: Performed By: #### LIP #### [facility] [address] [place], [place] [address] Urea nitrogen [Mass/Vol] 7 7-21 mg/dL Normal 05-27 [facility] (69461) Comment: Performed By: #### LIP #### [facility] [address] [place], [place] [address] progress on 2020-05 PROGRESS HNO ID: [id number] Normal 05-26-2020 [facility] Author: Vickie Srivastava [facility] Service: Hospital Medicine Medical Author Type: Resident Center Type: Progress Notes ([id number]) Filed: 05/26/2020 2:11 PM Note Text: Attestation signed by Oh Arreaga at 05/26/2020 2:23 PM Attending Note I personally saw and examined the patient on 05/26/20. I rev iewed the resident's note. I agree with the resident's assessment and plan unless otherwise noted. Signature: Oh Arreaga DO Date: 05/26/2020 Time: 2:23 PM Pager: [phone] HOUSE MEDICINE SERVICE PROGRESS NOTE SERVICE DATE: May 26, 2020 SERVICE TIME: 1:53 PM NIGHT AND WEEKEND COVERAGE: From 6 AM to 5 PM: You may reach the House Medicine leadership program internship currently assigned to this patient by findin g their pager number on the treatment team (they will be assigned as the i ntern or resident). It is the last four digits in the phone number be ginning with ([phone]). We encourage the use of [employer] Secure Chat. SUBJECTIVE HPI: 39 year old F PMHx idiopathic pancreatitis, hepatic cys ts presenting to the ED with intractable nausea and vomiting as well as RU Q abdominal pain for the past 3 days. States that she called her GI doct or Dr. Winn and he told her to come into the ED. She has a scope [facility] ed for 05/[address] Winn. Was [...] 05/25/20 193 -- 05/25/201944 pneumatic compression stockings (md,dc) VTE Prophylaxis: VTE prophylaxis appropriate GI Prophylaxis: Indicated due to chronic acid suppression th erapy as an outpatient Telemetry: no Disposition: Home Code Status: Not on file Plan of care discussed with: Provider, RN, Patient SIGNATURE: Vickie Srivastava MD PATIENT NAME: Sally shannon DATE: May 26, 2020 TIME: 1:53 PM hemogram on 2020-05 Erythrocyte distribution 13.3 11.7-14.4 % Normal 05-26 [facility] width (RBC) [Ratio] System (07007) Comment: Performed By: #### CBC1 #### [address] [address] Hematocrit (Bld) [Volume 33.7 34.1-44.9 % Low 05-26 [facility] fraction] System (00 000) Comment: Performed By: #### CBC1 #### [address] [address] Hemoglobin (Bld) [Mass/Vol] 10.8 11.2-15.7 g/dL Low [facility] (00 000) Comment: Performed By: #### CBC1 #### [facility] [address] [place], [place] [address] MCH (RBC) [Entitic mass] 29.3 25.6-32.2 pg Normal 05-26 [facility] (00 000) Comment: Performed By: #### CBC1 #### [facility] [address] [place], [place] [address] MCHC (RBC) [Mass/Vol] 32.0 31.6-34.8 % Normal 05-26-20 20 [facility] (22137) Comment: Performed By: #### CBC1 #### [facility] [address] [place], [place] [address] MCV (RBC) [Entitic vol] 91.3 79.4-94.8 fl Normal 2019 [facility] (00 000) Comment: Performed By: #### CBC1 #### [facility] [address] [place], [place] [address] Platelet mean volume (Bld) 10.8 9.4-12.3 fl Normal [facility] [Entitic vol] System (42289) Comment: Performed By: #### CBC1 #### [facility] [address] [place], [place] [address] Platelets (Bld) [#/Vol] 226 182-369 thou/cmm Normal 2019 [facility] (00 000) Comment: Performed By: #### CBC1 #### [facility] [address] [place], [place] [address] RBC (Bld) [#/Vol] 3.69 3.93-5.22 mil/cmm Low 05-26-2020 [facility] (20715) Comment: Performed By: #### CBC1 #### [facility] [address] [place], [place] [address] RDW SD 44.3 36.4-46.3 fl Normal 05-26-2020 [facility] (87761) Comment: Performed By: #### CBC1 #### [facility] [address] [place], [place] [address] WBC (Bld) [#/Vol] 9.78 3.98-10.04 thou/cmm Normal 05-26-2020 [facility] (00 000) Comment: Performed By: #### CBC1 #### [facility] [address] [place], [place] [address] coronavirus 2019 on 2020-05-26 COVID 19 Result [employer] COORDINATOR Negative CORNESonya Normal 05-26-2020 [facility] (72331) Comment: Result Comment: Negative for COVID19 (SARS CoV2) by PCR. This test was developed and its performance characteristics determined by [facility] [place]. This test has bee n authorized by [...] issued on November 12, 2019. Performing Laboratory: [facility] [address] [place] [address] Performed By: #### CD19X ### # [address] [address] consult on CONSULT HNO ID: [id number] Normal 05-26-2020 [facility] Author: Joe Romero) [facility] Service: Gastroenterology ([id number]) Author Type: Physician Senior Architect Type: Consults Filed: 05/26/2020 11:22 AM Note [...] Benign liver cyst 05/24/2010 CT scan at [facility] 11/2009 and 04/2010 showe 4 mm increase in size . No pain. No elevated LFTs on 03/11/2010. - Calculus of kidney 05/17/[address] Nicolas: Hospitalized age 20, and again later -- no procedures so far [facility]) - Cancer (HCC) - Diverticulosis - [...] removed - TOTAL ABDOM HYSTERECTOMY 08/31/06 Hysterectomy, [facility] H[facility] Problem Relation Age of [...] Approx. 3 cigarettes daily-1 pack every w paimiut Substance Use Topics - Alcohol use: Yes [...] (TYLENOL) 650 mg ORAL q 4 H [facility] ALLERGIES Allergen Reactions - Penicillins Rash [...] 26, 2020 TIME: 11:10 AM PAGER/CONTACT #: [phone] After 3PM please use on-call paging system basic metabolic panel on 2020-05-26 Anion gap [Moles/Vol] 9 9-18 mmol/L Normal 05-26-20 20 [facility] ([id number]) Comment: Performed By: #### BMP #### [facility] [address] [place], [place] [address] Calcium [Mass/Vol] 9.0 8.5-10.2 mg/dL Normal 05-26-2020 [facility] (76556) Comment: Performed By: #### BMP #### [facility] [address] [place], [place] [address] Chloride [Moles/Vol] 104 97-105 mmol/L Normal 0 [facility] (96155) Comment: Performed By: #### BMP #### [facility] [address] [place], [place] [address] CO2 Blood 25 22-30 mmol/L Normal 05-26-2020 [facility] (63491) Comment: Performed By: #### BMP #### [facility] [address] [place], [place] [address] Creatinine [Mass/Vol] 0.86 0.58-0.96 mg/dL Normal 05-26-20 20 [facility] (00 000) Comment: Performed By: #### BMP #### [facility] [address] [place], [place] [address] Glucose [Mass/Vol] 87 74-99 mg/dL Normal 05-26-2020 [facility] (85416) Comment: Result Comment: The [place] Diabetes Association (ADA) provides guidance for cutoff [...] Standards of Medical Care in Diabetes 2016; [place] [employer] Association. Diabetes Care. 2016;39(Suppl 1). Performed By: #### BMP #### [facility] [address] [place], [place] [address] Potassium [Moles/Vol] 3.5 3.7-5.1 mmol/L Low 05-26-20 20 [facility] (63204) Comment: Performed By: #### BMP #### [facility] [address] [place], [place] [address] Sodium [Moles/Vol] 138 136-144 mmol/L Normal 05-26-2020 [facility] (02958) Comment: Performed By: #### BMP #### [address] [address] Urea nitrogen [Mass/Vol] 9 7-21 mg/dL Normal 05-26 [facility] (26847) Comment: Performed By: #### BMP #### [address] [address] urine drug screen o n 2020-05-25 Urine Alcohol <11 0-11 Normal 05-25-2020 [facility] (18659) Comment: Performed By: #### UDRG3 ### # [address] [address] Urine Amphetamine NEGATIVE NEGATIVE Normal 05-25-2020 [facility] (17496) Comment: Performed By: #### UDRG3 ### # [address] [address] Urine Barbiturates NEGATIVE NEGATIVE Normal 05-25-2020 [facility] (79783) Comment: Performed By: #### UDRG3 ### # [address] [address] Urine Benzodiazepine NEGATIVE NEGATIVE Normal 0 [facility] (00 000) Comment: Performed By: #### UDRG3 ### # [address] [address] Urine Cocaine Metab NEGATIVE NEGATIVE Normal 05-25-2020 [facility] (84505) Comment: Performed By: #### UDRG3 ### # [address] [address] Urine Opiates see below NEGATIVE Abnormal 05-25-2020 [facility] (22719) Comment: Result Comment: PRESUMPTIVE POSITIVE Performed By: #### UDRG3 ### # [facility] [address] [place], [place] [address] Urine Oxycodone NEGATIVE NEGATIVE Normal 05-25-2020 [facility] (83629) Comment: Performed By: #### UDRG3 ### # [facility] [address] [place], [place] [address] Urine PCP NEGATIVE NEGATIVE Normal 05-25-2020 [facility] (79278) Comment: Result Comment: Test Cutoff Unit Amphetamines 1000 ng/mL Barbiturates 200 ng/mL Benzodiazepines 200 ng/mL Cannabinoids 50 ng/mL Cocaine 300 ng/mL Opiates 300 ng/mL Oxycodone 100 ng/mL Phencyclidine 25 ng/mL Reference Range: Negative at cutoff threshold Immunoassay screen only. Interior Wall Assembler ss reactivity with other substances can occur [...] the same specimen through the laboratory at ([phone]) if contact ed within 48 hours of initial 1. Substance Abuse and [facility] (2012). Clini sam Drug Testing in Primary Care Technical Assistance Publica tion Series 32. Department of Health and Human Services, U SA, p.10. Performed By: #### UDRG3 ### # [facility] [address] [place], [place] [address] Urine THC NEGATIVE NEGATIVE Normal 05-25-2020 [facility] (30055) Comment: Performed By: #### UDRG3 ### # [facility] [address] [place], [place] [address] urinalysis routine on 2020-05-25 RBC LM.HPF (Urine sed) 0.0-3 0.0-5.0 Normal 020 [facility] [#/Area] System (00 000) Comment: Performed By: #### URIN2 ### # [facility] [address] [place], [place] [address] Bacteria LM.HPF (Urine sed) NONE None Normal [facility] [#/Area] (57548) Comment: Performed By: #### URIN2 ### # [facility] [address] [place], [place] [address] Ep Cells Urine 21.5 0.0-5.0 /hpf High 05-25-2020 [facility] (40673) Comment: Performed By: #### URIN2 ### # [facility] [address] [place], [place] [address] Hyaline Cast 0.0 0.0-1.0 /lpf Normal 05-25-2020 [facility] (52771) Comment: Performed By: #### URIN2 ### # [facility] [address] [place], [place] [address] WBC LM.HPF (Urine sed) 2.9 0.0-5.0 /hpf Normal 020 [facility] [#/Area] System (00 000) Comment: Performed By: #### URIN2 ### # [facility] [address] [place], [place] [address] Appearance (U) CLOUDY Normal 05-25-2020 [facility] (08490) Comment: Performed By: #### URIN2 ### # [facility] [address] [place], [place] [address] Bilirubin (U) NEGATIVE Negative mg/dL Normal 05-25-2020 [facility] [Mass/Vol] System (0 0000) Comment: Performed By: #### URIN2 ### # [facility] [address] [place], [place] [address] Color (U) YELLOW Normal 05-25-2020 [facility] (79169) Comment: Performed By: #### URIN2 ### # [facility] [address] [place], [place] [address] Glucose Ql (U) NEGATIVE Negative Normal 05-25-2020 [facility] (76095) Comment: Performed By: #### URIN2 ### # [facility] [address] [place], [place] [address] Hemoglobin,Urine NEGATIVE Negative Normal 05-25-2020 [facility] (79216) Comment: Performed By: #### URIN2 ### # [facility] [address] [place], [place] [address] Ketone Urine NEGATIVE Negative Normal 05-25-2020 [facility] (53699) Comment: Performed By: #### URIN2 ### # [facility] [address] [place], [place] [address] Leukocytes Esterase NEGATIVE Negative Normal 05-25-2020 [facility] (06385) Comment: Performed By: #### URIN2 ### # [facility] [address] [place], [place] [address] Nitrites Urine NEGATIVE Negative Normal 05-25-2020 [facility] (84197) Comment: Performed By: #### URIN2 ### # [address] [address] pH (U) 5.5 5.0-8.0 [pH] Normal 05-25-2020 [facility] (16576) Comment: Performed By: #### URIN2 ### # [facility] [address] [place], [place] [address] Protein (U) [Mass/Vol] NEGATIVE Negative mg/dL Normal 020 [facility] (00 000) Comment: Performed By: #### URIN2 ### # [facility] [address] [place], [place] [address] Specific [place], Ur 1.024 1.005-1.030 Normal 020 [facility] (00 000) Comment: Performed By: #### URIN2 ### # [facility] [address] [place], [place] [address] Urobilinogen,Ur 0.2 0.2-1.0 EU/dL Normal 05-25-2020 [facility] (89958) Comment: Performed By: #### URIN2 ### # [facility] [address] [place], [place] [address] nursing prog on 202 NURSING PROG HNO ID: [id number] Normal 05-25-20 [facility] Author: Eleanor (Rn) VIN Parrish [employer] ([id number]) Service: ? Author Type: Registered Nurse Type: [...] Lipase Blood 25 16-61 U/L Normal 05-25-2020 [facility] (86661) Comment: Performed By: #### LIP #### [place] [address] hosp on 2020-05-25 HOSP Patient:Sally Mcgregor Normal 05-15 [place] MRN: General Height:5' 1(1.549 m) Medical Weight:200 lb 6.4 oz (90.901 kg) Center Outpatient Medications as of 05/28/20: (77615) hyoscyamine (LEVSIN) 0.125 mg tablet sucralfate (CARAFATE) [...] 32.2 % 05/28/2020 44.9 34.1 Progress Notes ([facility]): Pierce Barber Ma 05/25/2020 4:24 PM Signed Tried to return patient call, voicemail full. Pierce Sunil CATES Progress Notes (): Katharine oGnzalez, RN, RN 05/25/2020 7:[address] [...] since Thursday night. Patient was seen at [facility] on Thursday night where she was [...] v Family history: of suicide, attempts, or [place] 1 psychiatri c disorders requiring hospitalization v Precipitants/Stressors/Interpersonal: triggering events le ading to humiliation, shame or despair (e.g; loss of relationship, fi nancial or Health status-real or antici pated). Ongoing medical illness (zohreh. UTILITY MANAGER disorders, pain). Intoxication. Family turmoil/chaos. History of Physical or sexual abuse. Social isolation. v Change in treatment: discharge from psychiatric hospital, provider or treatment change v Access to firearms 2.??? PROTECTIVE FACTORS pro tective factors, even if present, may not counteract significant acute risk v Internal: ability to cope with stress, caodaism beliefs, frustration tolerance v External: responsibility to [...] Benign liver cyst 05/24/2010 CT scan at [facility] 11/2009 and 04/2010 showe 4 mm increase in size . No pain. No elevated LFTs on 03/11/2010. - Calculus of kidney 05/17/[address] Nicolas: Hospitalized age 20, a nd again later -- no procedures so far ([facility], [facility], 1995 [facility]) - Cancer (HCC) - Diverticulosis - [...] removed - TOTAL ABDOM HYSTERECTOMY 08/31/06 Hysterectomy, [facility]ILY H[facility]ORY Problem Relation Age of [...] Approx. 3 cigarettes daily-1 pack every w paimiut Substance and Sexual Activity - Alcohol use: [...] PM: You may reach the House Medicine leadership program internship currently assigned to this patien t by finding their pager number on the treatment team (they will be assigned as the leadership program internship or resident). It is the last four digits in the phone num alyson beginning with ([phone]). We encourage the use of [employer] Secure Chat. PCP: Marcelino Mejia MD Admitting [...] Benign liver cyst 05/24/2010 CT scan at [facility] 11/2009 and 04/2010 showe 4 mm increase in size . No pain. No elevated LFTs on 03/11/2010. - Calculus of kidney 05/17/[address] Nicolas: Hospitalized age 20, a nd again later -- no procedures so far ([facility]) - Cancer (HCC) - Diverticulosis - [...] Approx. 3 cigarettes daily-1 pack every w paimiut Substance Use Topics - Alcohol use: Yes [...] Benign liver cyst 05/24/2010 CT scan at [facility] 11/2009 and 04/2010 showe 4 mm increase in size . No pain. No elevated LFTs on 03/11/2010. - Calculus of kidney 05/17/[address] Nicolas: Hospitalized age 20, a nd again later -- no procedures so far ([facility], [facility], [facility]) - Cancer (HCC) - Diverticulosis - [...] Approx. 3 cigarettes daily-1 pack every w paimiut Substance Use Topics - Alcohol use: Yes [...] (TYLENOL) 650 mg ORAL q 4 H [facility] ALLERGIES Allergen Reactions - Penicillins Rash [...] 26, 2020 TIME: 11:10 AM PAGER/CONTACT #: [phone] After 3PM please use on-call paging system Vickie Srivastava MD 05/26/2020 2:11 PM Attested Attestation signed by Oh Arreaga at 05/26/2020 2:23 PM Attending Note I personally saw and examined the patient on 05/26/20. I rev iewed the resident's note. I agree with the resident's assessment and plan unless otherwise noted. Signature: Oh Arreaga, DO Date: 05/26/2020 Time: 2:23 PM Pager: [phone] HOUSE MEDICINE SERVICE PROGRESS NOTE SERVICE DATE: May 26, 2020 SERVICE TIME: 1:53 PM NIGHT AND WEEKEND COVERAGE: From 6 AM to 5 PM: You may reach the House Medicine leadership program internship currently assigned to this patien t by finding their pager number on the treatment team (they will be assigned as the leadership program internship or resident). It is the last four digits in the phone num alyson beginning with ([phone]). We encourage the use of [employer] Secure Chat. SUBJECTIVE HPI: 39 year old [...] 05/25/20 193 -- 05/25/201944 pneumatic compression stockings (md,oh) VTE Prophylaxis: VTE prophylaxis appropriate GI Prophylaxis: [...] (TYLENOL) 650 mg ORAL q 4 H [facility] N - oxyCODONE IR 10 mg tab(s) (ROXICODONE) 10 mg ORAL q 6 H [facility] N Objective PHYSICAL EXAM: VITALS:BP 119/74 Pulse [...] 27, 2020 TIME: 1:15 PM PAGER/CONTACT #: Junior Engineer Pager Vickie Srivastava MD 05/27/2020 4:19 PM [...] PM: You may reach the House Medicine leadership program internship currently assigned to this patien t by finding their pager number on the treatment team (they will be assigned as the leadership program internship or resident). It is the last four digits in the phone num alyson beginning with ([phone]). We encourage the use of [employer] Secure Chat. SUBJECTIVE HPI: 39 year old [...] Note Patient Name: Sally Mcgregor Patient Location: [id number] Attempted to draw AM labs. Was unsuccessful x 2 attempts. This note was completed by: VIN Conley MD 05/28/2020 8:57 AM Incomplete HOUSE MEDICINE SERVICE PROGRESS NOTE SERVICE DATE: May 28, 2020 SERVICE TIME: 1:53 PM NIGHT AND WEEKEND COVERAGE: From 6 AM to 5 PM: You may reach the House Medicine leadership program internship currently assigned to this patien t by finding their pager number on the treatment team (they will be assigned as the leadership program internship or resident). It is the last four digits in the phone num alyson beginning with ([phone]). We encourage the use of [employer] Secure Chat. SUBJECTIVE HPI: 39 year old [...] fever, nausea or vomiting, or diarrhea. She kzrysztof d that her pain is uncontrolled by [...] delete will not show in completed note) :[id number] } Intractable nausea and vomiting Intractable nausea [...] delete will not show in completed note) :[id number] } Medication and Non-Pharmacologic VTE Prophylaxis/Anticoagula nts Anticoagulant AND Antiplatelet Medications (From admission, onward) Start Dose Route Frequency Ordered Stop 05/25/201999 enoxaparin 40 mg injection (LOVENOX) (Me dical Risk Categories) 40 mg SUBCUTANEOUS DAILY 05/25/201935 -- 05/25/201944 pneumatic compression stockings (md,oh) VTE Prophylaxis: VTE prophylaxis appropriate GI Prophylaxis: [...] mg x 3 Quetiapine 100 mg daily [place] prescription history Shows occasional use of opiates, [...] (ROXICODONE) 10 mg ORAL q 6 H [facility] Maggi (Kiran) MD Mark 10 mg [...] Approx. 3 cigarettes daily-1 pack every w paimiut Substance Use Topics - Alcohol use: Yes [...] Benign liver cyst 05/24/2010 CT scan at [facility] 11/2009 and 04/2010 showe 4 mm increase in size . No pain. No elevated LFTs on 03/11/2010. - Calculus of kidney 05/17/[address] Nicolas: Hospitalized age 20, a nd again later -- no procedures so far ([facility]) - Cancer (HCC) - Diverticulosis - [...] Approx. 3 cigarettes daily-1 pack every w paimiut Substance Use Topics - Alcohol use: Yes [...] May 28, 2020 TIME: 12:15 PM CSN: [id number] history physical on 2020-05-25 HISTORY HNO ID: [id number] Normal 05-25-2020 [place] PHYSICAL Author: Maggi Flores MD General Service: Hospital Medicine Medical Author Type: Resident Center Type: [facility] ([id number]) Filed: 05/25/2020 5:42 PM Note Text: Attestation [...] PM: You may reach the House Medicine leadership program internship currently assigned to this patient by findin g their pager number on the treatment team (they will be assigned as the i ntern or resident). It is the last four digits in the phone number be ginning with ([phone]). We encourage the use of [employer] Secure [...] Benign liver cyst 05/24/2010 CT scan at [facility] 11/2009 and 04/2010 showe 4 mm increase in size . No pain. No elevated LFTs on 03/11/2010. - Calculus of kidney 05/17/[address] Nicolas: Hospitalized age 20, and again later -- no procedures so far ([facility], [facility], [facility]) - Cancer (HCC) - Diverticulosis - [...] Approx. 3 cigarettes daily-1 pack every w paimiut Substance Use Topics - Alcohol use: Yes [...] Immature Grans 0.09 0.00-0.05 thou/cmm High 05-25-2020 [facility] (00 000) Comment: Performed By: #### CBCD1 ### # [place] [address] Abs Neut (ANC) 3.14 1.56-6.13 thou/cmm Normal 05-25-2020 [facility] (62539) Comment: Performed By: #### [email or web address] ### # [facility] [address] [place], [place] [address] Abs. Baso 0.06 0.01-0.08 thou/cmm Normal 05-25-2020 [facility] (64649) Comment: Result Comment: Smear scanne d; tech agrees with automated differential Performed By: #### CBCD1 ### # [facility] [address] [place], [place] [address] Abs. Stevens 0.50 0.27-0.70 thou/cmm Normal 05-25-2020 [facility] (57925) Comment: Performed By: #### CBCD1 ### # [facility] [address] [place], [place] [address] Basophils/100 WBC (Bld) 0.7 % Normal 2019 [facility] (47132) Comment: Performed By: #### CBCD1 ### # [facility] [address] [place], [place] [address] Eosinophils (Bld) 0.30 0.00-0.31 thou/cmm Normal 05-25-2020 [facility] [#/Vol] [facility] (61046) Comment: Performed By: #### CBCD1 ### # [facility] [address] [place], [place] [address] Eosinophils/100 WBC (Bld) 3.6 % Normal 05-15 [facility] (61234) Comment: Performed By: #### CBCD1 ### # [facility] [address] [place], [place] [address] Immature Grans 1.10 % Normal 05-25-2020 [facility] (03372) Comment: Performed By: #### CBCD1 ### # [facility] [address] [place], [place] [address] Lymphocytes (Bld) [#/Vol] 4.34 1.18-3.74 thou/cmm High 05-15 [facility] (00 000) Comment: Performed By: #### CBCD1 ### # [facility] [address] [place], [place] [address] Lymphocytes/100 WBC (Bld) 51.5 % Normal 05-15 [facility] (36317) Comment: Performed By: #### CBCD1 ### # [facility] [address] [place], [place] [address] Monocytes/100 WBC (Bld) 5.9 % Normal 2019 [facility] (27788) Comment: Performed By: #### CBCD1 ### # [facility] [address] [place], [place] [address] Seg Neutrophil 37.2 % Normal 05-25-2020 [facility] (76740) Comment: Performed By: #### CBCD1 ### # [facility] [address] [place], [place] [address] Erythrocyte distribution 13.7 11.7-14.4 % Normal 05-25 [facility] width (RBC) [Ratio] System (49491) Comment: Performed By: #### CBCD1 ### # [facility] [address] [place], [place] [address] Hematocrit (Bld) [Volume 39.7 34.1-44.9 % Normal 05-25 [facility] fraction] System (00 000) Comment: Performed By: #### CBCD1 ### # [facility] [address] [place], [place] [address] Hemoglobin (Bld) 12.1 11.2-15.7 g/dL Normal 05-25-2020 [facility] [Mass/Vol] System (0 0000) Comment: Performed By: #### CBCD1 ### # [facility] [address] [place], [place] [address] MCH (RBC) [Entitic mass] 28.2 25.6-32.2 pg Normal 05-25 [facility] (00 000) Comment: Performed By: #### CBCD1 ### # [facility] [address] [place], [place] [address] MCHC (RBC) [Mass/Vol] 30.5 31.6-34.8 % Low 05-25-20 20 [facility] (64807) Comment: Performed By: #### CBCD1 ### # [address] [address] MCV (RBC) [Entitic vol] 92.5 79.4-94.8 fl Normal 2019 [facility] (00 000) Comment: Performed By: #### CBCD1 ### # [facility] [address] [place], [place] [address] Platelet mean volume (Bld) 11.0 9.4-12.3 fl Normal [facility] [Entitic vol] System (53557) Comment: Performed By: #### CBCD1 ### # [facility] [address] [place], [place] [address] Platelets (Bld) [#/Vol] 254 182-369 thou/cmm Normal 2019 [facility] (00 000) Comment: Performed By: #### CBCD1 ### # [facility] [address] [place], [place] [address] RBC (Bld) [#/Vol] 4.29 3.93-5.22 mil/cmm Normal 05-25-2020 [facility] (00 000) Comment: Performed By: #### CBCD1 ### # [facility] [address] [place], [place] [address] RDW SD 46.5 36.4-46.3 fl High 05-25-2020 [facility] (47142) Comment: Performed By: #### CBCD1 ### # [facility] [address] [place], [place] [address] WBC (Bld) [#/Vol] 8.43 3.98-10.04 thou/cmm Normal 05-25-2020 [facility] (00 000) Comment: Performed By: #### [email or web address] ### # [facility] [address] [place], [place] [address] ed prov note on ED PROV NOTE HNO ID: [id number] Normal 05-25-20 [facility] Author: Johnnie Long MD Center ([id number]) Service: Emergency Medicine Author Type: Physician Type: [...] 05/26/20 0014 ED PROV NOTE HNO ID: [id number] Normal 05-25-20 [facility] Author: Johnnie Long MD [employer] ([id number]) Service: Emergency Medicine Author Type: Physician Type: [...] back since night. Patient was seen at [facility] on Thursday night where sh shiva was given fluids, told her labs looked fine and was discharged home. Skyler maciel follows with Dr. Winn for GI as she has a 9 cm cyst in her liver and history of pancreatitis. Patient is scheduled for endoscopy and ultrasound on Thursday. She states that Dr. Winn told her t o come to [facility] ED for specific type of [...] v Family history: of suicide, attempts, or [place] 1 psychiatri c disorders requiring hospitalization v Precipitants/Stressors/Interpersonal: triggering events le ading to humiliation, shame or despair (e.g; loss of relationship, fi nancial or Health status-real or anticipated). Ongoing medical illness (zohreh. UTILITY MANAGER disorders, pain). Intoxication. Family turmoil/chaos. Histor y of Physical or sexual abuse. Social isolation. v Change in treatment: discharge from psychiatric hospital, provider or treatment change v Access to firearms 2.??? PROTECTIVE FACTORS protective factors, even if present , may not counteract significant acute risk v Internal: ability to cope with stress, caodaism beliefs, frustration tolerance v External: responsibility to [...] Benign liver cyst 05/24/2010 CT scan at [facility] 11/2009 and 04/2010 showe 4 mm increase in size . No pain. No elevated LFTs on 03/11/2010. - Calculus of kidney 05/17/[address] Nicolas: Hospitalized age 20, and again later -- no procedures so far ([facility]) - Cancer (HCC) - Diverticulosis - [...] Approx. 3 cigarettes daily-1 pack every w paimiut Substance and Sexual Activity - Alcohol use: [...] ed note on ED NOTE HNO ID: [id number] Normal 05-25-2020 [facility] Author: Katharine Gonzalez RN [employer] ([id number]) Service: Emergency Medicine Author Type: Registered Nurse Type: ED Notes Filed: 05/25/2020 6:31 PM Note Text: RN unavailable for report at 1830 ED NOTE HNO ID: [id number] Normal 05-25-2020 [facility] Author: Katharine Gonzalez RN [employer] ([id number]) Service: Emergency Medicine Author Type: Registered Nurse Type: ED Notes Filed: 05/25/2020 5:58 PM Note Text: Dr. Mukherjee notified pt asking for something for pain. ED NOTE HNO ID: [id number] Normal 05-25-2020 [facility] Author: Katharine Gonzalez RN [employer] ([id number]) Service: Emergency Medicine Author Type: Registered Nurse Type: ED Notes Filed: 05/25/2020 4:00 PM Note Text: Covid swab obtained and sent. ED NOTE HNO ID: [id number] Normal 05-25-2020 [facility] Author: Katharine Gonzalez RN [employer] ([id number]) Service: Emergency Medicine Author Type: Registered Nurse Type: ED Notes Filed: 05/25/2020 3:08 PM Note Text: Pt to CT by cart. ED NOTE HNO ID: [id number] Normal 05-25-2020 [facility] Author: Katharine Gonzalez RN [employer] ([id number]) Service: Emergency Medicine Author Type: Registered Nurse Type: ED Notes Filed: 05/25/2020 11:55 AM Note Text: Pt complains of heat flash Temperature adjusted. Resp unla bored. ED NOTE HNO ID: [id number] Normal 05-25-2020 [facility] Author: Katharine Gonzalez RN [employer] ([id number]) Service: Emergency Medicine Author Type: Registered Nurse Type: ED Notes Filed: 05/25/2020 10:42 AM Note Text: Pt complains of itching after Dilaudid. No hives or SOB note dAzul Pierre notified and no orders received. Pt given ice. ED NOTE HNO ID: [id number] Normal 05-25-2020 [facility] Author: Katharine Gonzalez RN [employer] ([id number]) Service: Emergency Medicine Author Type: Registered Nurse Type: ED Notes Filed: 05/25/2020 7:15 AM Note Text: Dr. Miranda notified pt needs SAFE-T form completed. ct abd/pel w ivcon on 2020-05-25 CT ABD/PEL W Final Report Normal 05-25-2020 [facility] General IVCON DATE OF EXAM: May 25 2020 3:15PM [facility] 0530 - CT ABD/PEL W IVCON / ([id number]) PROCEDURE REASON: Nausea, vomiting Physician Interpretation EXAMINATION: [...] obe suggestive of small areas of atelectasis. Networking Administrator (topogram) images: IMPRESSION: 1. No acute intra-abdominal/pelvic abnormalities are identif ied. 2. Bilateral nephrolithiasis. No hydronephrosis is identifie d. 3. Multiple hepatic cysts measuring up to 9.5 cm. 4. Findings consistent with fatty infiltration of liver. Stacker: PSCAudrey Transcribe Date/Time: May 25 2020 3:16P Dictated by : ALICE ALCARAZ MD This examination was interpreted and the report reviewed and electronically signed by: ALICE ALCARAZ MD on May 25 2020 3:27PM EST comprehensive metabolic panel on 2020-05-25 Albumin [Mass/Vol] 4.8 3.9-4.9 g/dL Normal 05-25-2020 [facility] ([id number]) Comment: Performed By: #### CMP #### [facility] [address] [place], [place] [address] ALP [Catalytic activity/Vol] 98 34-123 U/L Normal 0 05-25-2020 [facility] (00 000) Comment: Performed By: #### CMP #### [facility] [address] [place], [place] [address] ALT [Catalytic activity/Vol] 12 7-38 U/L Normal 0 05-25-2020 [facility] (00 000) Comment: Performed By: #### CMP #### [facility] [address] [place], [place] [address] Anion gap [Moles/Vol] 11 9-18 mmol/L Normal 05-25-20 [facility] (15201) Comment: Performed By: #### CMP #### [facility] [address] [place], [place] [address] AST [Catalytic activity/Vol] 14 13-35 U/L Normal 0 05-25-2020 [facility] (00 000) Comment: Performed By: #### CMP #### [facility] [address] [place], [place] [address] Bilirubin [Mass/Vol] 0.4 0.2-1.3 mg/dL Normal 0 [facility] (95965) Comment: Performed By: #### CMP #### [facility] [address] [place], [place] [address] Calcium [Mass/Vol] 9.7 8.5-10.2 mg/dL Normal 05-25-2020 [facility] (45028) Comment: Performed By: #### CMP #### [facility] [address] [place], [place] [address] Chloride [Moles/Vol] 104 97-105 mmol/L Normal 0 [facility] (95254) Comment: Performed By: #### CMP #### [facility] [address] [place], [place] [address] CO2 Blood 24 22-30 mmol/L Normal 05-25-2020 [facility] (25345) Comment: Performed By: #### CMP #### [facility] [address] [place], [place] [address] Creatinine [Mass/Vol] 0.95 0.58-0.96 mg/dL Normal 05-25-20 [facility] (00 000) Comment: Performed By: #### CMP #### [facility] [address] [place], [place] [address] Glucose [Mass/Vol] 95 74-99 mg/dL Normal 05-25-2020 [facility] (12725) Comment: Result Comment: The [place] Diabetes Association (ADA) provides guidance for cutoff [...] Standards of Medical Care in Diabetes 2016; [place] [employer] Association. Diabetes Care. 2016;39(Suppl 1). Performed By: #### CMP #### [facility] [address] [place], [place] [address] Potassium [Moles/Vol] 3.6 3.7-5.1 mmol/L Low 05-25-20 [facility] (63109) Comment: Performed By: #### CMP #### [facility] [address] [place], [place] [address] Protein [Mass/Vol] 8.0 6.3-8.0 g/dL Normal 05-25-2020 [facility] (93191) Comment: Performed By: #### CMP #### [facility] [address] [place], [place] [address] Sodium [Moles/Vol] 139 136-144 mmol/L Normal 05-25-2020 [facility] (70552) Comment: Performed By: #### CMP #### [facility] [address] [place], [place] [address] Urea nitrogen [Mass/Vol] 11 7-21 mg/dL Normal 05-25 [facility] (11710) Comment: Performed By: #### CMP #### [facility] [address] [place], [place] [address] cnpn on 2020-05-25 CNPN Telephone (GSTNOR) Normal 05-25-2020 [place] [facility] SALLY MCGREGOR ([id number]) [address] [facility] Time Provider Department (77677) 05/25/20 JOHNNY WINN GSTNOR During your visit [...] 05/25/20 progress on 2020-05 PROGRESS HNO ID: [id number] Normal 05-24-2020 [facility] Author: Johnny Winn [place] ([id number]) Service: ? Author Type: Physician Type: Progress [...] virtual telemedicine Visit was substituted for a two twelve medical centero -required in-person visit because of the recent [...] go to the ED. Patient went to [place] ED and mentions 'nothing was done. T [...] Benign liver cyst 05/24/2010 CT scan at [facility] 11/2009 and 04/2010 showe 4 mm increase in size . No pain. No elevated LFTs on 03/11/2010. - Calculus of kidney 05/17/[address] Nicolas: Hospitalized age 20, and again later -- no procedures so far ([facility], most, 1995 [facility]) - Cancer (HCC) - Diverticulosis - [...] Approx. 3 cigarettes daily-1 pack every w paimiut Substance Use Topics - Alcohol use: Yes [...] the ED yesterday - she went to [place] ED and was told that pancreas levels [...] for nausea. Advised to go to the [facility] ED if no improvement in s ymptoms. During this patient visit I have spent approximately 15 luna los in counseling regarding interpretation, education and coordinat ion of care. Johnny Winn MD 3:22 PM progress on 2020-05 PROGRESS HNO ID: [id number] Normal 05-23-2020 [facility] Author: Johnny Winn [employer] ([id number]) Service: Gastroenterology Author Type: Physician Type: Progress Notes Filed: 05/24/2020 8:09 AM Note Text: Returned patient?s call. She reported worsening RUQ pain ass ociated with nausea vomiting diarrhea and bloating. Denied any fever/chil ls, cough. Advised her to go to the ED to r/o pancreatitis, complicatio n in the large liver cysts. She voiced understanding. Johnny Winn MD adams-nervine asylumn on 2020-05-18 CNPN Telephone (FAMPWS) Normal 05-18-2020 [place] [facility] SALLY MCGREGOR ([id number]) 1980 [facility] Date Time Provider Department ([id number]) 05/18/20 [facility] During your visit today, we recorded [...] uns pecified laterality [M25.519] Order(s):CONSULT TO ORTHOPAEDICS [9022] Order #: [id number] ty: 1 FUTURE Prescriptions as of 05/18/2020 [...] * * *Final Report* * * Normal [facility] AP/ZENOBIA AP/OTHR DATE OF EXAM: May 17 2020 12:16PM [place] ([id number]) RT WOX 5253 - XR SHLDR >/=3V AP/ZENOBIA AP/OTHR RT / [id number] PROCEDURE REASON: Acute pain of right shoulder [...] abnormalities identified i n the right shoulder. Stacker: HERMINIO Transcribe Date/Time: May 17 2020 12:18P Dictated by : KORI BLANKENSHIP MD This examination was interpreted and the report reviewed and electronically signed by: KORI BLANKENSHIP MD on May 17 2020 12:20PM EST [id number] progress on 2020-05 PROGRESS HNO ID: [id number] Normal 05-17-2020 [facility] Author: Kylee PickardRtVianey Lea Mata ([id number]) Service: ? Author Type: Plastic Molder Type: Progress Notes Filed: 05/17/2020 12:17 PM [...] 17, 2020 12:08 PM PROGRESS HNO ID: [id number] Normal 05-17-2020 [facility] Author: Kenia Mary) Bartolo Mata ([id number]) Service: ? Author Type: Nurse Practitioner Type: Progress Notes Filed: 05/17/2020 12:45 PM Note Text: Visit Date: May 17, 2020 Patient Name: Ms.Nichole Jeana Mcgregor Date of : 1980 MRN/E #: [id number] Chief Complaint Patient presents with: right shoulder [...] Benign liver cyst 05/24/2010 CT scan at [facility] 11/2009 and 04/2010 showe 4 mm increase in size . No pain. No elevated LFTs on 03/11/2010. - Calculus of kidney 05/17/[address] Nicolas: Hospitalized age 20, and again later -- no procedures so far ([facility], most, 1995 [facility]) - Dysmenorrhea - History of blood [...] Approx. 3 cigarettes daily-1 pack every w paimiut Substance Use Topics - Alcohol use: Yes [...] 2020-05-17 CNOV Office Visit (UCWSTR) Normal 05-17-[address] [place] [address] [facility] SALLY MCGREGOR ([id number]) [address] [facility] Time Provider Department (04879) 05/17/20 11:45 AM KENIA MCFARLAND (JAKI) [facility] During your visit today, we recorded the following informati on about you: Temperature Pulse Respiration Blood pressure 97.8 degrees 86/minute 16/minute 124/82 Weight 89.9 kg Kenia Mcfarland APRN.CNP 05/17/2020 12:45 PM Signed Visit Date: May 17, 2020 Patient Name: Ms.Nichole Jeana Mcgregor Date of : 1980 MRN/E #: [id number] Chief Complaint Patient presents with: right shoulder [...] Benign liver cyst 05/24/2010 CT scan at [facility] 11/2009 and 04/2010 showe 4 mm increase in size . No pain. No elevated LFTs on 03/11/2010. - Calculus of kidney 05/17/[address] Nicolas: Hospitalized age 20, a nd again later -- no procedures so far ([facility], most, 1995 [facility]) - Dysmenorrhea - History of blood [...] removed - TOTAL ABDOM HYSTERECTOMY 08/31/06 Hysterectomy, [facility] Social History Tobacco Use - Smoking status: Former Smoker Packs/day: 0.50 Years: 3.00 Pack years: 1.50 Types: Cigarettes Quit date: 01/12/2017 Years since quittin.3 - Smokeless tobacco: Never Used - Tobacco comment: Approx. 3 cigarettes daily-1 pack every w paimiut Substance Use Topics - Alcohol use: Yes [...] mean Date Reviewed: 05/17/2020 Reviewed by: Kenia PickardNational Guard Member) Workman - Fully Assessed Reason for Visit: right shoulder pain [Other] Cmt: fell in shoulder yesterday Primary Visit Diagnosis:Acute pain of right shoulder [M25.51 1] Order(s):XR SHOULDER GENERAL 3V OR MORE AP/TRUE AP/OTHER RT [3426069] Order #: [id number]. #:[id number] Prescriptions as of 05/17/2020 Sig: PANTOPRAZOLE 40 [...] on 05/17/20 No panel information on 2020-05-17 [facility] ([id number]) cnpn on 2020-05-11 CNPN Telephone (GSTNOR) Normal 05-11-2020 [place] [facility] SALLY MCGREGOR ([id number]) 1980 F [place] Date Time Provider Department ([id number]) 05/11/20 JOHNNY WINN GSTNOR During your visit [...] on 2020-05-11 CNCO Letter Text Normal 05-11-2020 [facility] ([id number]) progress on 2020-04 PROGRESS HNO ID: [id number] Normal 05-10-2020 [facility] Author: Johnny Winn [place] ([id number]) Service: ? Author Type: Physician Type: Progress [...] pathology on 2020-05-08 SURGICAL Specimen originated from [facility] Normal 05-08-2020 [place] PATHOLOGY Specimen #: [id number] Clinic Submitting Physician: JOHNNY WINN MD [place] ([id number]) FINAL DIAGNOSIS 1. Random colon, biopsy (A) [...] in one cassette. Gross examination performed at [facility], [address] [place] [address] [place] 05/08/2020 11:06:23 PM B. Received in [...] in one cassette. Gross examination performed at [facility], [address] [place] [address] J[place] 05/08/2020 11:23:05 PM Date of Report: 05/11/2020 Date of Procedure: 05/08/2020 Date of Receipt: 05/08/2020 Submitted by: JOHNNY WINN MD Location: [facility] Diagnostic interpretation performed at [facility], [address] [place] [address]. CLIA Number: [id number] pt ed on 2020-05-08 PT ED HNO ID: [id number] Normal 05-08-2020 [facility] Author: Penny Benedict RN [place] ([id number]) Service: ? Author Type: Registered Nurse Type: [...] history physical on 2020-05-08 HISTORY HNO ID: [id number] Normal 05-08-2020 [place] [facility] Author: Johnny Winn [facility] Service: Gastroenterology [place] Author Type: Physician ([id number]) Type: HANDP Filed: 05/08/2020 12:46 PM Note [...] pre-op on 2019 ANES PRE-OP HNO ID: [id number] Normal 0 [facility] Author: Tania Mata ([id number]) Service: ? Author Type: Nurse Special Needs Teacher Type: Anesthesia Preprocedure Evaluation Filed: 05/08/2020 12:36 [...] May 08, 2020 TIME: 12:26 PM CSN: [id number] anes postproc eval on 2020-05-08 ANES POSTPROC EVAL HNO ID: [id number] Normal [facility] Author: Tania Mata ([id number]) Service: ? Author Type: Nurse Special Needs Teacher Type: Anesthesia Postprocedure Evaluation Filed: 05/08/2020 1:36 [...] May 08, 2020 TIME: 1:36 PM CSN: [id number] No panel information on 2020-05-08 Gas Appliance Install[employer] [facility] Gastrointestinal Endoscopy ([id number]) Patient Name: Sally Mcgregor Procedure Date: 05/08/2020 [...] Recommendation: - Patient has a contact number [facility] for emergencies. The signs and symptoms [...] Estimated Blood Loss: Estimated blood loss: none. [employer] [facility] Gastrointestinal Endoscopy ([id number]) Patient Name: Sally Mcgregor Procedure Date: 05/08/2020 [...] on 2020-05-07 CNPN Telephone (GSTNOR) Normal 05-07-2020 [facility] SALLY MCGREGOR ([id number]) 1980 [facility] Time Provider Department (13554) 05/07/20 JOHNNY WINN GSTNOR During your visit [...] not draw the celiac panel. Pierce Barber MEDICAL STAFF SERVICES COORDINATOR Allergies As of Date: 05/07/2020 Noted Allergy [...] on 2020-05-01 CNPN Telephone (GSTNOR) Normal 05-01-2020 [place] [facility] SALLY MCGREGOR ([id number]) 1980 F [place] Date Time Provider Department ([id number]) 05/01/20 JOHNNY WINN GSTNOR During your visit [...] elier was not drawn, left message with [facility] lab to contact patient for redraw Pierce [...] * * *Final Report* * * Normal [facility] - DATE OF EXAM: Apr 30 2020 4:13PM [place] ([id number]) [facility] 1232 - US ABD SPLEEN -NB / [...] cyst, enlarged compared to p rior study. Stacker: HERMINIO Transcribe Date/Time: Apr 30 2020 4:19P Dictated by : KORI BLANKENSHIP MD This examination was interpreted and the report reviewed and electronically signed by: KORI BLANKENSHIP MD on Apr 30 2020 4:27PM EST [id number] us abd right upper quadrant on 2020-04-30 US ABD RIGHT * * *Final Report* * * Normal 04-14 [facility] UPPER QUADRANT DATE OF EXAM: Apr 30 2020 4:13PM [place] ([id number]) [facility] 1032 - US ABD RIGHT UPPER [...] cyst, enlarged compared to p rior study. Stacker: [facility] Transcribe Date/Time: Apr 30 2020 4:19P Dictated by : KORI BLANKENSHIP MD This examination was interpreted and the report reviewed and electronically signed by: KORI BLANKENSHIP MD on Apr 30 2020 4:27PM EST [id number] progress on 2020-04 PROGRESS HNO ID: [id number] Normal 04-30-2020 [facility] Author: Vianey Ramos (Tech) [place] ([id number]) Service: ? Author Type: Plastic Molder Type: Progress Notes Filed: 04/30/2020 4:14 PM [...] on 2020-04 OBSOLETE Refill (FAMPWS) Normal 04-30-2020 [facility] SALLY MCGREGOR ([id number]) [address] [facility] Time Provider Department (05152) 04/30/20 MARCELINO MEJIA FAMPWS During your visit [...] 04/30/20 igg subclasses+total on 2020-04-30 IgG [Mass/Vol] 4613 507-8418 mg/dL Normal 04-30-2020 [facility] (52149) Comment: Performed By: #### IGGSUB ## ##[address] [phone] [phone] IgG Subclass 1 757.6 382.4-928.6 mg/dL Normal 04-30-2020 [facility] (71612) Comment: Performed By: #### IGGSUB ## ##[address] [id number] [phone] IgG Subclass 2 398.2 241.8-700.3 mg/dL Normal 04-30-2020 [facility] (35025) Comment: Performed By: #### IGGSUB ## ##[address] [id number]- [phone] IgG Subclass 3 42.7 21.8-176.1 mg/dL Normal 04-30-2020 [facility] ([id number]) Comment: Performed By: #### IGGSUB ## ##[address] [id number]- [phone] IgG Subclass 4 39.7 3.9-86.4 mg/dL Normal 04-30-2020 [facility] (84003) Comment: Performed By: #### IGGSUB ## ##[facility] [place] [address] [phone]- [phone] cnpn on 2020-04-30 CNPN Telephone (GSTNOR) Normal 04-30-2020 [facility] SALLY MCGREGOR ([id number]) 1980 [facility] Date Time Provider Department (71974) 04/30/20 JOHNNY WINN GSTNOHerman During your visit [...] on 04/30/20 No panel information on 2020-04-30 [facility] (65458) cnpn on 2020-04-27 [facility]) Normal 04-27-2020 [place] [facility] TOSHIASALLY TORRES ([id number]) 1980 [facility] Date Time Provider Department (54147) 04/27/20 MARCELINO MEJIA During your visit today, we recorded the following informati on about you: Christopher Carcamo RN 04/27/2020 9:04 AM Signed Patient asking if pcp would send Rx for phenergan to [facility]. Reports she's had nausea for weeks. Saw [...] 04/27/20 progress on 2020-04 PROGRESS HNO ID: [id number] Normal 04-26-2020 [facility] Author: Johnny Winn [place] ([id number]) Service: ? Author Type: Physician Type: Progress [...] note she presented to the ED in [place] in January 2020 for a bdominal pain of [address] abdomen was essentially unremarkable i ncluding pancreas. Was found to have lipase of 193 on 02/15/2020. Amylase normal. Hepatic function panel. Has h/o cholecystectomy in 1998. Denies NSAIDs. Smoking - quit 3 months ago. 1 pack/day X 15 years. Etoh - denies. Drugs - denies. Record Review: [facility] records reviewed PAST MEDICAL HISTORY Diagnosis Date - Allergic rhinitis, cause unspecified 05/17/2008 Spring and summer - Benign liver cyst 05/24/2010 CT scan at [facility] 11/2009 and 04/2010 showe 4 mm increase in size . No pain. No elevated LFTs on 03/11/2010. - Calculus of kidney 05/17/[address] Nicolas: Hospitalized age 20, and again later -- no procedures so far ([facility], [facility], 1995 [facility]) - Dysmenorrhea - History of blood [...] removed - TOTAL ABDOM HYSTERECTOMY 08/31/06 Hysterectomy, [facility] Allergies: ALLERGIES Allergen Reactions - Penicillins [...] Approx. 3 cigarettes daily-1 pack every w paimiut Substance Use Topics - Alcohol use: Yes [...] CNOV Office Visit (GSTNOR) Normal 04-26- 20 [facility] SALLY MCGREGOR ([id number]) 1980 F [place] Date Time Provider Department (19861) 04/26/20 3:00 PM JOHNNY WINN During your [...] Benign liver cyst 05/24/2010 CT scan at [facility] 11/2009 and 04/2010 showe 4 mm increase in size . No pain. No elevated LFTs on 03/11/2010. - Calculus of kidney 05/17/[address] Nicolas: Hospitalized age 20, a nd again later -- no procedures so far ([facility], most, 1995 [facility]) - Dysmenorrhea - History of blood [...] removed - TOTAL ABDOM HYSTERECTOMY 08/31/06 Hysterectomy, [facility] Allergies: ALLERGIES Allergen Reactions - Penicillins [...] Approx. 3 cigarettes daily-1 pack every w paimiut Substance Use Topics - Alcohol use: Yes [...] If you do not have a responsible pharmacy delivery driver (family member or friend) with you [...] the prescription bowel preparation solution at your [facility] pharmacy or drugstore pharmacy. 08/2019 Bowel [...] or limit intake. Referring Provider: MARCELINO MEJIA [[id number]] Allergies As of Date: 04/26/2020 Noted Allergy [...] doctor.Disp: 1 BottleRfl : 0 INSERT IV (CO,OH) [3312595] Order #: [id number]: 1 FUTURE IV DISCONTINUE [0476738] Order #: [id number]: 1 FUTURE INSERT IV ([place]) [2948188] Order #: [id number]: 1 EGD [1811757] Order #: [id number] FUTURE COLONOSCOPY - DIAGNOSTIC [4223704] Order #: [id number] FUTUR E CELIAC DISEASE PANEL [0466750] Order #: [id number] FUTURE IGG SUBCLASSES BLD [SQIGGSUB] Order #: [id number] FUTURE US ABD RT UPPER QUADRANT [1464461] Order #: [id number] FUTUR E metroNIDAZOLE (FLAGYL) 500 mg tabletTake [...] AND PRE-OPERATIVE COVID [SQPOCOVD] Order #: [id number] FUTURE Prescriptions as of 04/26/2020 Sig: DIPHENHYDRAMINE [...] take a taxi or bus, or leave [facility] ALONE. If you do not have a responsible pharmacy delivery driver (famil y member or friend) with [...] the prescription bowel preparation solution at your [facility] pharmacy or drugstore pharmacy. 08/2019 Bowel [...] on 2020-04-26 CNCO Letter Text Normal 04-26-2020 [facility] ([id number]) cnpn on 2020-04-19 CNPN Telephone (FAMPWS) Normal 04-19-2020 [place] [facility] SALLY MCGREGOR ([id number]) 1980 [facility] Date Time Provider Department (86403) 04/19/20 [facility] During your visit today, we recorded the following informati on about you: Christopher Carcamo RN 04/19/2020 10:49 AM Signed Faxed GI referral and demographics to [facility], per patient request. . Allergies As [...] Fully Assessed Reason for Visit: Faxed to [facility] [Other] Prescriptions as of 04/19/2020 Sig: [...] on 2020-04-18 CNPN Telephone (FAMPWS) Normal 04-18-2020 [place] [facility] SALLY MCGREGOR ([id number]) 1980 [facility] Date Time Provider Department (02362) 04/18/20 [facility] During your visit today, we recorded the following informati on about you: Yvette Huffman RN 04/18/2020 2:01 PM Signed Pt called, verified by name and birthdate. Pt wants to know if she can see a GI doctor. Reviewed pt's chart and she has a GI con sult with GI group in [place]. Pt verbalized understanding, states she will call to make ap t Yvette Huffman RN Allergies As of Date: 04/18/2020 Noted Allergy Reaction PENICILLINS 12/07/2009 2 - Rash ASA (SALICYLATES) 01/27/2011 14 - Other: See Comments Comments: ulcers CONTRAST DYE (IODINE) 05/17/2008 12 - Shortness of Breath FLAGYL (METRONIDAZOLE HCL) 03/11/2010 12 - Shortness of [place] th IBUPROFEN 06/18/2016 8 - GI Upset PREDNISONE 06/18/2016 14 - Other: See Comments Comments: makes agitated and mean Date Reviewed: 02/23/2020 Reviewed by: Marcelino Mejia - Fully Assessed Reason for Visit: Patient Question [5667] Prescriptions as of 04/18/2020 Sig: TOPIRAMATE 50 [...] on 2020-04-16 CNPN Telephone (FAMSkylerWS) Normal 04-16-2020 [place] [facility] SALLY MCGREGOR ([id number]) 1980 [facility] Date Time Provider Department (73658) 04/16/20 [facility] During your visit today, we recorded the following informati on about you: Edwina Tatum BRINEYARD SUPERVISOR 04/16/2020 11:38 AM Signed Pt calls to report she went to [facility] ER 04/12. Pt reports she went [...] (METRONIDAZOLE HCL) 03/11/2010 12 - Shortness of [place] th IBUPROFEN 06/18/2016 8 - GI Upset [...] on 2020-03-29 CNPN Telephone (FAMPWS) Normal 03-29-2020 [place] [facility] SALLY MCGREGOR ([id number]) 1980 [facility] Date Time Provider Department ([id number]) 03/29/20 [facility] During your visit today, we recorded the following informati on about you: Melanie Debby HERNANDEZ 03/29/2020 10:06 AM Signed Patient calling crying constantly, so congested from a ll the crying, can not get appt with [facility] will not take her insurance. [facility] will not take any new patients [...] AM Signed 1. Can we confirm that [facility] at [facility] doesn't take her insurance. If they don't take her insurance then we ca n see if can get her in with Dr. Church since he is back in [facility] now. 2. Find out how long [...] she said to ask for prescription [place] [facility] [place]er or ibuprofen (she said, in below message she can't take ibuprof en). TC to [facility] and had to leave message for them to return call regarding if they accept patient's insurance. Instructed the m to give patient's name when they return the call so we can document. Lorenzo Vu 03/29/2020 12:49 PM Signed Giulia / [facility] returned call stating the y do not take [facility]; provider is not credentialed with them yet. [...] muscle relaxer for her migraines. Pharmacy is [facility]. Please review and advise. VIN Solis MD [...] (METRONIDAZOLE HCL) 03/11/2010 12 - Shortness of [place] th IBUPROFEN 06/18/2016 8 - GI Upset [...] 2020-03-28 CNPN Telephone (FAMWS) Normal 03-28-2020 M[facility] SALLY MCGREGOR ([id number]) 1980 [facility] Date Time Provider Department ([id number]) 03/28/20 MARCELINO MEJIA During your visit today, [...] OBSOLETE Refill (FAMPWS) Normal 03-27-2020 Isaías veland [facility] SALLY MCGREGOR ([id number]) 1980 [facility] Date Time Provider Department ([id number]) 03/27/20 MARCELINO MEJIA FAMPWS During your visit [...] on 2020-03-27 CNPN Telephone (FAMPWS) Normal 03-27-2020 [facility] SALLY MCGREGOR ([id number]) 1980 [place] Date Time Provider Department ([id number]) 03/27/20 MARCELINO MEJIA During your visit today, we recorded the following informati on about you: Yvette Huffman RN 03/27/2020 10:59 AM Signed Pt called, verified by name and birthdate. Pt states s he went to [facility] ER last night for a migraine and had a CT scan. Pt wants PCP to review ER records. Pt wants referral to neurology. Order pended. When signed pleas e fax to [facility] at [facility] per pt request Yvette Murphy Ma 03/27/2020 12:20 PM Signed ER reports on PCP's desk to review. Jessica Zhou, RN, RN 03/27/2020 1:37 PM Signed Pt calls, asking what the diagnosis was on the ER note. Pt states she was told air bubble, tumor States Imitrex is not working. Has already taken 2 today. Wa iting on [facility] to call her back Pt asking [...] referral placed and can be faxed to [facility]. Let patient know th e CT [...] referred to. See needs to contact her child care education coordinator to get the help see nee ds as instructed on 03/22/2020, otherwise our hands are tied. Jessica Murphy Ma 03/27/2020 2:29 PM Signed Pt notified and voiced understanding. Referral and Dem o faxed to [facility]. Jessica Murphy Ma Allergies As of Date: [...] [G43.009] Order(s):CONSULT TO NEUROLOGY [[id number]] Order #: [id number]: 1 FUTURE Prescriptions as of 03/27/2020 Sig: [...] 03/27/20 progress on 2020-03 PROGRESS HNO ID: [id number] Normal 03-22-2020 [facility] Author: Isabel (Maya) Hugo Mata ([id number]) Service: ? Author Type: Physician Senior Architect Type: Progress Notes Filed: 03/22/2020 9:50 AM Note Text: DISTANCE HEALTH VISIT This Team Access Model visit is a phone encounter. It requir ed patient-provider interaction for the medical decision making as documented below. No video was used for evaluation of this patient. Patient consents to visit. Patient location: [place] Sally Mcgregor is a 39 year old female seen for headaches a nd pain. Patient states she has had to cancel with pain management 5 different times so now they won't reschedule her. She continues to have migraines/headaches. Only taking topam ax once a day. Couldn't do MRI or US due to rides. States she couldn't go to [place] for her cardiac testing but continues to [...] 11-20 minutes cnpn on 2020-03-22 CNPN Telephone ([facility]) Normal 03-22-2020 [place] [facility] TOSHIASALLY TORRES ([id number]) 1980 [facility] Date Time Provider Department ([id number]) 03/22/20 ISABEL ARIAS) RAMA During your visit today, we recorded the following informati on about you: ISABEL ARIAS PA-C 03/22/2020 9:43 AM Signed Please let patient know that this is info I have received from in regards to rides: The last I knew, most of them were back up and running. I do know that [facility] has been continuing with their ride assistance and are taking people to their appts. I would sa y they need to check now with insurance to see if able to set up ride. The patient could also see if they can request a child care education coordinator through their Medicaid Managed Care p maria esther. I have patients that have Medicaid plan and their care managers a re able to assist them setting up services. Having a child care education coordinator through insu eve is great because they [...] again. I advised her that she contact [facility] and request more help from her child care education coordinator. Allergies As of Date: 03/22/2020 Noted Allergy [...] Encounter Status:Closed by ISABEL WARE on 03/22/20 [facility] on 2020-03-[facility] Normal 03-08-2020 [place] SALLY Martinez ([id number]) 1980 [facility] Date Time Provider Department ([id number]) 03/08/20 [facility] During your visit today, we recorded [...] transfer to scheduling and while waiting for flight crew scheduler which was awhile, pt dropped call. [...] (METRONIDAZOLE HCL) 03/11/2010 12 - Shortness of [place] th IBUPROFEN 06/18/2016 8 - GI Upset [...] on 2020-03-05 CNPN Telephone (FAMWS) Normal 03-05-2020 [place] [facility] BENJIShivaSALLY ([id number]) 1980 F [place] Date Time Provider Department ([id number]) 03/05/20 [facility] During your visit today, we recorded the following informati on about you: Sallie Benitez BRINEYARD SUPERVISOR 03/05/2020 1:58 PM Signed Patient is scheduling [...] on 03/06/20 CNPN Telephone (FAMPWS) Normal 03-05-2020 [place] [facility] SALLY MCGREGOR ([id number]) 1980 F [place] Date Time Provider Department (59350) 03/05/20 MARCELINO MEJIA During your visit today, we recorded the following informati on about you: Melanie Debby BRINEYARD SUPERVISOR 03/05/2020 2:16 PM Signed Patient calling would like flight crew scheduler to call her back to set [...] stated she 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 vic stated she is to [facility] for [facility]. Verified that we have [facility] and MRI schedul ed here on 03/19. -Marry Xavi Pss Allergies As of Date: 03/05/2020 Noted Allergy Reaction PENICILLINS 12/07/2009 2 - Rash ASA (SALICYLATES) 01/27/2011 14 - Other: See Comments Comments: ulcers CONTRAST DYE (IODINE) 05/17/2008 12 - Shortness of Breath FLAGYL (METRONIDAZOLE HCL) 03/11/2010 12 - Shortness of [place] th IBUPROFEN 06/18/2016 8 - GI Upset [...] on 2020-02-28 CNPN Telephone (FAMPWS) Normal 02-28-2020 [place] SALLY Martinez ([id number]) 1980 [address] [place] Date Time Provider Department (44668) 02/28/20 [facility] During your visit today, we recorded the following informati on about you: Janneth Zhou, RN, RN 02/28/2020 10:41 AM Signed Pt calls for ER F/U appt. States she was at [facility] ER on 02/24 after reportidly passing [...] XR CHEST 1 VIEW ORIGINAL Normal 02-25-2020 [facility] XR CHEST 1 VIEW Foun dation ([place]) (39933) CLINICAL STATEMENT: Chest pain COMPARISON: 04/06/2006 FINDINGS: [...] Troponin I.cardiac <0.020 0.000-0.040 ng/mL Normal 0 [facility] [Mass/Vol] [place] ([place]) (18631) Comment: Result Comment: Troponin I r eference range: 0.00-0.040 ng/mL Negative an d non-diagnostic. >0.040 ng/mL Consistent with cardiac damage, increased clinical risk and possibility of myocardial in farction. Serial measurements, a rise & fall in test results, clinical histo ry, appropriate symptoms and/or ECG changes may help assess possibility of GA. *Other non-acute coronary sy ndrome conditions such as CHF, myoc arditis, pulmonary emboli, sepsis and cardiac surgery could result in myoc ardial damage and increased troponi n levels. Performed By: #### CBC, ADIF F, ANEU, BMP, GFR #### [address] [address] mg on 2020-02-25 Magnesium [Mass/Vol] 2.0 1.8-2.4 mg/dL Normal 0 [facility] ([place]) (0000 0) Comment: Performed By: #### CBC, ADIF F, ANEU, BMP, GFR #### [address] [address] lip on 2020-02-25 Lipase Level 562 73-393 U/L High 02-25-2020 [facility] ([place]) (00907) Comment: Performed By: #### CBC, ADIF F, ANEU, BMP, GFR #### [address] [address] cmp on 2020-02-25 Albumin [Mass/Vol] 4.1 3.5-5.0 G/dL Normal 02-25-2020 [facility] ([place]) (62655) Comment: Performed By: #### CBC, ADIF F, ANEU, BMP, GFR #### [address] [address] Albumin/Globulin [Mass 1.2 1.1-2.5 ratio Normal [address] [place] [address]] [facility] ([place]) (11439) Comment: Performed By: #### CBC, ADIF F, ANEU, BMP, GFR #### [address] [address] ALP [Catalytic activity/Vol] 98 40-135 U/L Normal 0 02-25-2020 [facility] ([place]) (0000 0) Comment: Performed By: #### CBC, ADIF F, ANEU, BMP, GFR #### [address] [address] ALT [Catalytic activity/Vol] 30 10-35 U/L Normal 0 02-25-2020 [facility] ([place]) (0000 0) Comment: Performed By: #### CBC, ADIF F, ANEU, BMP, GFR #### [address] [address] AST [Catalytic activity/Vol] 15 10-40 U/L Normal 0 02-25-2020 [facility] ([place]) (0000 0) Comment: Performed By: #### CBC, ADIF F, ANEU, BMP, GFR #### [address] [address] Bili Total 0.4 0.2-1.0 mg/dL Normal 02-25-2020 [facility] ([place]) (45067) Comment: Result Comment: Use of this assay is not recommended for patients undergoing treatment with eltrombopag d ue to the potential for falsely elevated results. Performed By: #### CBC, ADIF F, ANEU, BMP, GFR #### [address] [address] Calcium [Mass/Vol] 8.9 8.4-10.2 mg/dL Normal 02-25-2020 [facility] ([place]) (0000 0) Comment: Performed By: #### CBC, ADIF F, ANEU, BMP, GFR #### [address] [address] Chloride [Moles/Vol] 104 98-107 mmol/L Normal 0 [facility] ([place]) (0000 0) Comment: Performed By: #### CBC, ADIF F, ANEU, BMP, GFR #### [address] [address] CO2 [Moles/Vol] 28 22-29 mmol/L Normal 02-25-2020 [facility] ([place]) (77322) Comment: Performed By: #### CBC, ADIF F, ANEU, BMP, GFR #### [address] [address] Creatinine [Mass/Vol] 1.01 0.55-1.02 mg/dL Normal 02-25-20 20 [facility] ([place]) (12033) Comment: Performed By: #### CBC, ADIF F, ANEU, BMP, GFR #### [address] [address] Electrolyte Balance 9.0 mEq/L Normal 02-25-2020 [facility] ([place]) (97649) Comment: Performed By: #### CBC, ADIF F, ANEU, BMP, GFR #### [address] [address] Globulin (S) [Mass/Vol] 3.4 G/dL Normal 2019 [facility] ([place]) (87533) Comment: Performed By: #### CBC, ADIF F, ANEU, BMP, GFR #### [address] [address] Glucose [Mass/Vol] 112 70-105 mg/dL High 02-25-2020 [facility] ([place]) (58432) Comment: Performed By: #### CBC, ADIF F, ANEU, BMP, GFR #### [address] [address] Potassium [Moles/Vol] 3.7 3.5-5.1 mmol/L Normal 02-25-20 [facility] ([place]) (0000 0) Comment: Performed By: #### CBC, ADIF F, ANEU, BMP, GFR #### [address] [address] Protein [Mass/Vol] 7.5 6.4-8.2 G/dL Normal 02-25-2020 [facility] ([place]) (04624) Comment: Performed By: #### CBC, ADIF F, ANEU, BMP, GFR #### [address] [address] Sodium [Moles/Vol] 141 136-145 mmol/L Normal 02-25-2020 [facility] ([place]) (0000 0) Comment: Performed By: #### CBC, ADIF F, ANEU, BMP, GFR #### [address] [address] Urea nitrogen [Mass/Vol] 21 7-18 mg/dL High 02-24 [facility] ([place]) (52213) Comment: Performed By: #### CBC, ADIF F, ANEU, BMP, GFR #### [address] [address] Urea nitrogen/Creatinine [Mass 21 7-27 ratio Normal 02-25-2020 [facility]] [facility] ([place]) (98894) Comment: Performed By: #### CBC, ADIF F, ANEU, BMP, GFR #### [address] [address] cbc on 2020-02-25 Erythrocyte distribution 14.9 11.5-14.5 % High 02-24 [facility] width (RBC) [Ratio] ([place]) (89719) Comment: Performed By: #### CBC, ADIF F, ANEU, BMP, GFR #### [place] [address] Hematocrit (Bld) [Volume 35.9 37.0-47.0 % Low 02-24 [facility] fraction] ([place]) (0000 0) Comment: Performed By: #### CBC, ADIF F, ANEU, BMP, GFR #### [place] [address] Hemoglobin (Bld) 11.8 12.0-16.0 G/dL Low 02-25-2020 [facility] [Mass/Vol] ([place]) (000 00) Comment: Performed By: #### CBC, ADIF F, ANEU, BMP, GFR #### [place] [id number] MCH (RBC) [Entitic mass] 29.5 27.0-31.2 pg Normal 02-24 [facility] ([place]) (0000 0) Comment: Performed By: #### CBC, ADIF F, ANEU, BMP, GFR #### [place] [id number] MCHC (RBC) [Mass/Vol] 32.9 33.0-37.0 G/dL Low 02-25-20 20 [facility] ([place]) (0000 0) Comment: Performed By: #### CBC, ADIF F, ANEU, BMP, GFR #### [place] [id number] MCV (RBC) [Entitic vol] 89.9 80.0-94.0 fL Normal 2019 [facility] ([place]) (0000 0) Comment: Performed By: #### CBC, ADIF F, ANEU, BMP, GFR #### [place] [address] Platelet mean volume 9.2 7.4-10.4 fL Normal 0 [facility] (d) [Entitic vol] ([place]) (32803) Comment: Performed By: #### CBC, ADIF F, ANEU, BMP, GFR #### [place] [address] Platelets (Bld) [#/Vol] 265 130-400 10 3/mcL Normal 2019 [facility] ([place]) (63157) Comment: Performed By: #### CBC, ADIF F, ANEU, BMP, GFR #### [place] [address] RBC (Bld) [#/Vol] 4.00 4.20-5.40 10 6/mcL Low 02-25-2020 A [facility] ([place]) (0000 0) Comment: Performed By: #### CBC, ADIF F, ANEU, BMP, GFR #### [place] [address] WBC (Bld) [#/Vol] 9.90 4.60-10.80 10 3/mcL Normal 02-25-2020 [facility] ([place]) (69304) Comment: Performed By: #### CBC, ADIF F, ANEU, BMP, GFR #### [place] [address] .neuabs on Neutrophils (Bld) 6.00 2.85-6.16 10 3/mcL Normal 02-25-2020 A [facility] [#/Vol] [facility] ([place]) (01845) Comment: Performed By: #### CBC, ADIF F, ANEU, BMP, GFR #### [address] [address] .gfr on 2020-02-25 GFR Non- 61 ml/min/1.73sqm Normal 02-25-2020 [facility] ([place]) (45576) Comment: Result Comment: GFR Population mean for Afri can Ecuadorean, Non- Americans Ages 20-29 = 116 mL/min/1.73 [...] CBC, ADIF F, ANEU, BMP, GFR #### [address] [address] GFR 74 ml/min/1.73sqm Normal 02-12 [facility] ([place]) (0000 0) Comment: Result Comment: GFR Population mean for Afri can Ecuadorean, Non- Americans Ages 20-29 = 116 mL/min/1.73 [...] CBC, ADIF F, ANEU, BMP, GFR #### [address] [address] .auto diff on 02-24 Ammonia (P) [Mass/Vol] 0.60 0.15-1.00 10 3/mcL Normal 020 [facility] ([place]) (80036) Comment: Performed By: #### CBC, ADIF F, ANEU, BMP, GFR #### [address] [address] Basophils (Bld) 0.00 0.00-0.19 10 3/mcL Normal 02-25-2020 [facility] [#/Vol] [facility] ([place]) (68933) Comment: Performed By: #### CBC, ADIF F, ANEU, BMP, GFR #### [address] [address] Basophils/100 WBC (Bld) 0.2 0.0-2.5 % Normal 2019 [facility] ([place]) (0000 0) Comment: Performed By: #### CBC, ADIF F, ANEU, BMP, GFR #### [address] [address] Eosinophils (Bld) 0.30 0.00-0.40 10 3/mcL Normal 02-25-2020 [facility] [#/Vol] [facility] ([place]) (74223) Comment: Performed By: #### CBC, ADIF F, ANEU, BMP, GFR #### [address] [address] Eosinophils/100 WBC (Bld) 3.5 0.0-7.0 % Normal 02-12 [facility] ([place]) (0000 0) Comment: Performed By: #### CBC, ADIF F, ANEU, BMP, GFR #### [address] [address] Lymphocytes (Bld) 2.90 0.77-3.85 10 3/mcL Normal 02-25-2020 [facility] [#/Vol] [facility] ([place]) (19960) Comment: Performed By: #### CBC, ADIF F, ANEU, BMP, GFR #### [address] [address] Lymphocytes/100 WBC (Bld) 28.9 10.0-50.0 % Normal 02-12 [facility] ([place]) (42752) Comment: Performed By: #### CBC, ADIF F, ANEU, BMP, GFR #### [address] [address] Monocytes/100 WBC (Bld) 6.3 1.7-13.0 % Normal 2019 [facility] ([place]) (0000 0) Comment: Performed By: #### CBC, ADIF F, ANEU, BMP, GFR #### [facility] [address] [place] [address] Neutrophils/100 WBC (Bld) 61.1 37.0-80.0 % Normal 02-12 [facility] ([place]) (02424) Comment: Performed By: #### CBC, ADIF F, ANEU, BMP, GFR #### [facility] [address] [place] [address] progress on 2020-02 PROGRESS HNO ID: [id number] Normal 02-23-2020 [facility] Author: Marcelino Mejia [place] ([id number]) Service: ? Author Type: Physician Type: Progress Notes Filed: 02/23/2020 12:21 PM Note Text: This Team Access Model visit is a phone encounter. It requir ed patient-provider interaction for the medical decision making as documented below. The patient is identified by name and birthday. Patient loca tion: [place] The patient is aware that I am [...] on 2020-02-20 CNPN Telephone (FAMPWS) Normal 02-20-2020 [place] [facility] SALLY MCGREGOR ([id number]) 1980 [facility] Date Time Provider Department ([id number]) 02/20/20 MARCELINO MEJIA During your visit today, we recorded the following informati on about you: Lexy Tapia RN 02/20/2020 8:40 AM Signed fyi- Patient calls to report to PCP that she was back in [facility] ER over weekend due to pain from Pancreatitis. Her level was 800, so they s ent me home. States she received Oxycodone and report s that it is not doing much to relieve her pain and wanted PCP aware that she was in ER again. Patient did not have phone number of [facility] to schedule f ollow up. This [...] (METRONIDAZOLE HCL) 03/11/2010 12 - Shortness of [place] th IBUPROFEN 06/18/2016 8 - GI Upset [...] Encounter Status:Closed by MARCELINO MEJIA on 02/20/20 [facility]) Normal 02-20-2020 [place] [facility] SALLY MCGREGOR ([id number]) 1980 [facility] Date Time Provider Department (15025) 02/20/20 MARCELINO MEJIA [facility] During your visit today, we recorded the following informati on about you: Christopher Carcamo RN 02/20/2020 9:48 AM Signed Patient phoned crying and distraught, stating [facility], can not get her in until March. States she cannot take this pain anymore, her insurance will not cover anyone in [facility] When she was in the hospital morphine [...] pain right now, she is upset because [facility] cannot see her until March. Asking if there is anything pcp can do to get her in sooner? Ple ase phone patient with reply. Marcelino Mejia MD 02/20/2020 10:15 AM Signed Let patient know the only op tions ar for her to go to [facility] ER to see if will be admitted and get Gastro eval there where they have it or I can put in a general referral for the system but that could be anywhere in the system including main campus. Edwina Rc HERNANDEZ 02/20/2020 10:43 AM Signed Pt calls back and is very upset because she said she has no one to take her to [place]. She said when she goes to [facility] the y just drug her up [...] Crying. She cannot get transport ation to [facility]. Insurance does not cover [facility] and do es not want to go back to [place] because they will just send h er home with meds and dope me up for 3-4 days. Johnathon SOTELO cannot get her an appointment until March . Will route to clerical gastro for schedu ling within [facility] - possibly [facility]. Marcelino Mejia MD 02/20/2020 12:34 PM Signed noted Augustina Vera RN CREPE [email or web address].JAKI 02/20/2020 12:40 PM Signed I'd suggest that she go to [place] ED today. it w ould not be [...] she has no way of getting to [facility]. Pt states she does not th ink they take her insurance either. Spoke with PCP who suggested [facility]. Relayed message to pt, pt started yelling stating she has no transp ortation. States if she calls ambulance they will only take her within [facility]. Sta los her boyfriend can't take [...] illness. Asking letter to be faxed to [phone]. Marcelino Meija MD 02/20/2020 2:38 PM Signed Let patient know ER report from 02/18/2020 was reviewed and th e ER Physician wanted to keep but she preferred to go home and see if she c ould manage it there. Lorenzo Vu 02/20/2020 4:06 PM Signed Patient returned call, stating she went to [facility] ER today an d they discharged her because her level is less than 800. Reques ting something for pain, that Percocet helped some in past. No transportation to go anywhe re but [place] (?social problems specialist to help with transportat ion). Does not [...] doctor. In regards to her letter for [place] [employer] karsten what I [...] Signed Letter ready to be faxed to [phone]. Branden Sanders Ma 02/21/2020 8:24 AM Signed [...] Status:Closed by BRANDEN SANDERS MA on 02/21/20 [facility] (F[facility]) Normal 02-20-2020 [place] SALLY Martinez ([id number]) 1980 [facility] Date Time Provider Department ([id number]) 02/20/20 [facility] During your visit today, we recorded the following informati on about you: Melanie Debby HERNANDEZ 02/20/2020 2:25 PM Signed Patient calling wants note sent to PCP, she is currently i n [facility] ER. Patient said she has been [...] Encounter Status:Closed by MARCELINO MEJIA on 02/20/20 adams-nervine asylumn on 2020-02-16 [facility] Telephone (UCW[facility]) Normal 02-16-2020 [place] SALLY Martinez ([id number]) 1980 [place] Date Time Provider Department ([id number]) 02/16/20 JESSICA JESUS) [facility] During [...] Telephone (FAMPWS) Normal 02-16-2020 [facility] SALLY Martinez ([id number]) 1980 [address] [place] Date Time Provider Department (77868) 02/16/20 ISABEL ARIAS) RAMA During your visit [...] (METRONIDAZOLE HCL) 03/11/2010 12 - Shortness of [place] th IBUPROFEN 06/18/2016 8 - GI Upset [...] 02/16/20 progress on 2020-02 PROGRESS HNO ID: [id number] Normal 02-15-2020 [facility] Author: Marcelino Mejia [place] ([id number]) Service: ? Author Type: Physician Type: Progress [...] at today?s visit. Patient was sen in [facility] ER on 02/01/2020 with C/O epigastric [...] being home. Patient was seen in [facility] care yesterday for mouth sor [...] nosis) - CONSULT TO GASTROENTEROLOGY: [facility] in [place] - Cont prn phenergan. 2. Tongue ulcer [...] 02-15-2020 [facility] activity/Vol] [place] and (92053) Comment: Performed By: #### HBA1C, TS H, LIPNF #### [facility] [address] [place], [place] [address] comp metabolic panel on 2020-02-15 Albumin [Mass/Vol] 4.6 3.9-4.9 g/dL Normal 02-15-2020 [facility] (82124) Comment: Performed By: #### HBA1C, TS H, LIPNF #### [place] [id number] [place], [place] [address] ALP [Catalytic activity/Vol] 90 34-123 U/L Normal 0 02-15-2020 [facility] (99968) Comment: Performed By: #### HBA1C, TS H, LIPNF #### [facility] [address] [place], [place] [address] ALT [Catalytic activity/Vol] 6 7-38 U/L Low 0 02-15-2020 [facility] (14574) Comment: Performed By: #### HBA1C, TS H, LIPNF #### [facility] [address], [place] [address] Anion gap [Moles/Vol] 13 9-18 mmol/L Normal 02-15-20 [facility] (38520) Comment: Performed By: #### HBA1C, TS H, LIPNF #### [facility] [address], [place] [address] AST [Catalytic activity/Vol] 20 13-35 U/L Normal 0 02-15-2020 [facility] (14713) Comment: Performed By: #### HBA1C, TS H, LIPNF #### [facility] [address], [place] [address] Bilirubin [Mass/Vol] 0.2 0.2-1.3 mg/dL Normal 0 [facility] (13288) Comment: Performed By: #### HBA1C, TS H, LIPNF #### [facility] [address] [place] [id number] Calcium [Mass/Vol] 10.2 8.5-10.2 mg/dL Normal 02-15-2020 [facility] (57772) Comment: Performed By: #### HBA1C, TS H, LIPNF #### [place] [address] Chloride [Moles/Vol] 100 97-105 mmol/L Normal 0 [facility] (81727) Comment: Performed By: #### HBA1C, TS H, LIPNF #### [facility]0 [place] 7113195 CO2 [Moles/Vol] 26 22-30 mmol/L Normal 02-15-2020 [facility] (04515) Comment: Performed By: #### HBA1C, TS H, LIPNF #### [facility] [place] [id number] Creatinine [Mass/Vol] 0.92 0.58-0.96 mg/dL Normal 02-15-20 20 [facility] (55013) Comment: Performed By: #### HBA1C, TS H, LIPNF #### [facility] [place] [id number] eGFR- Amer. >60 Normal 02-15-2020 [facility] (45383) Comment: Performed By: #### HBA1C, TS H, LIPNF #### [facility] [address], [place] [address] GFR/1.73 sq M predicted >60 mL/min/{1.73_m2} Normal 02-15-2020 [facility] among non-blacks MDRD [place] (37283) (S/P/Bld) [Vol rate/Area] Comment: Result Comment: eGFR [...] By: #### HBA1C TS H, LIPNF #### [facility] [address] [place], [place] [address] Glucose [Mass/Vol] 89 74-99 mg/dL Normal 02-15-2020 [facility] (26430) Comment: Result Comment: The [place] Diabetes Association (ADA) provides guidance for cutoff [...] for diagnosis of diabetes. Reference: Standards of [facility] Care in Diabetes 2016, [place] [employer] Association. Diabetes Care. 2016.39(Suppl 1). Performed By: #### HBA1C, TS H, LIPNF #### [facility] [address] [place], [place] [address] Potassium [Moles/Vol] 3.7 3.7-5.1 mmol/L Normal 02-15-20 20 [facility] (14559) Comment: Performed By: #### HBA1C, TS H, LIPNF #### [facility] [address], [place] [address] Protein [Mass/Vol] 7.8 6.3-8.0 g/dL Normal 02-15-2020 [facility] (46684) Comment: Performed By: #### HBA1C, TS H, LIPNF #### [facility] [address], [place] [id number] Sodium [Moles/Vol] 139 136-144 mmol/L Normal 02-15-2020 [facility] (53253) Comment: Performed By: #### HBA1C, TS H, LIPNF #### [facility] [address], [place] [address] Urea nitrogen [Mass/Vol] 9 7-21 mg/dL Normal 02-14 [facility] (17237) Comment: Performed By: #### HBA1C, TS H, LIPNF #### [facility] [address] [place], [place] [address] cnov on 2020-02-15 CNOV Office Visit (FAMPWS) Normal 02-15-[address] [place] [address] [facility] SALLY MCGREGOR ([id number]) 1980 [facility] Date Time Provider Department ([id number]) 02/15/20 2:20 PM MARCELINO MEJIA FAMPWS During [...] at today?s visit. Patient was sen in [facility] ER on 02/01/2020 with C/O epigastric [...] being home. Patient was seen in the [facility] care yesterday f or mouth [...] diagnosis) - CONSULT TO GASTROENTEROLOGY: [facility] in [place] - Cont prn phenergan. 2. Tongue ulcer [...] (METRONIDAZOLE HCL) 03/11/2010 12 - Shortness of [place] th IBUPROFEN 06/18/2016 8 - GI Upset PREDNISONE 06/18/2016 14 - Other: See Comments Comments: makes agitated and mean Date Reviewed: 02/15/2020 Reviewed by: Mareclino Mejia - Fully Assessed Reason for Visit: Transition Of Care [4074] Cmt: [facility] pancreatitis Reason For Visit History Recorded Primary Visit Diagnosis:Acute pancreatitis without infection or necrosis, unspecified pancreatitis type [K85.90] Other Visit Diagnoses:Tongue ulcer [K14.0] Poor dentition [K08.9] Thrush [B37.0] Order(s):CONSULT TO GASTROENTEROLOGY [9055] Order #: 1 [id number]: 1 FUTURE triamcinolone (KENALOG IN ORABASE) 0.1 [...] Abs Baso 0.07 <0.11 k/uL Normal 02-15-2020 [facility] (23638) Comment: Performed By: #### HBA1C, TS H, LIPNF #### [facility] [address], [place] [address] Abs Stevens 0.53 <0.87 k/uL Normal 02-15-2020 [facility] (96257) Comment: Performed By: #### HBA1C, TS H, LIPNF #### [facility] [address], [place] [address] Abs Neut 6.05 1.45-7.50 k/uL Normal 02-15-2020 [facility] (49117) Comment: Performed By: #### HBA1C, TS H, LIPNF #### [facility] [address], [place] [address] Absolute nRBC <0.01 <0.01 Normal 02-15-2020 [facility] (91398) Comment: Performed By: #### HBA1C, TS H, LIPNF #### [facility]0 [place] [address] Basophils/100 WBC (Bld) 0.7 % Normal 2019 [facility] (48613) Comment: Performed By: #### HBA1C, TS H, LIPNF #### [facility] [address] [place] [address] DTYPE Auto Diff Normal 02-15-2020 [facility] (52029) Comment: Performed By: #### HBA1C, TS H, LIPNF #### [place] [address] Eosinophils (Bld) [#/Vol] 0.38 <0.46 k/uL Normal [facility] (23765) Comment: Performed By: #### HBA1C, TS H, LIPNF #### [facility] [place] [address] Eosinophils/100 WBC (Bld) 3.9 % Normal [facility] (02630) Comment: Performed By: #### HBA1C, TS H, LIPNF #### [facility] [place] [address] Erythrocyte distribution 14.7 11.5-15.0 % Normal 02-14 [facility] width (RBC) [Ratio] [place] (10081) Comment: Performed By: #### HBA1C, TS H, LIPNF #### [facility] [address], [place] [address] Hematocrit (Bld) [Volume 40.4 36.0-46.0 % Normal 02-14 [facility] (34915) Comment: Performed By: #### HBA1C, TS H, LIPNF #### [address] [address] Hemoglobin (Bld) 12.0 11.5-15.5 g/dL Normal 02-15-2020 [facility] [Mass/Vol] [place] (04762) Comment: Performed By: #### HBA1C, TS H, LIPNF #### [place] [address] Lymphocytes (Bld) [#/Vol] 2.77 1.00-4.00 k/uL Normal [facility] (43365) Comment: Performed By: #### HBA1C, TS H, LIPNF #### [address] [address] Lymphocytes/100 WBC (Bld) 28.3 % Normal [facility] (86904) Comment: Performed By: #### HBA1C, TS H, LIPNF #### [address] [address] MCH (RBC) [Entitic mass] 28.6 26.0-34.0 pG Normal 02-14 [facility] (04564) Comment: Performed By: #### HBA1C, TS H, LIPNF #### [address] [address] MCHC (RBC) [Mass/Vol] 29.7 30.5-36.0 g/dL Low 02-15-20 [facility] (68566) Comment: Performed By: #### HBA1C, TS H, LIPNF #### [address], [place] [address] MCV (RBC) [Entitic vol] 96.4 80.0-100.0 fL Normal 02-14 [facility] (90972) Comment: Performed By: #### HBA1C, TS H, LIPNF #### [facility] [address], [place] [address] Monocytes/100 WBC (Bld) 5.4 % Normal 2019 [facility] (77202) Comment: Performed By: #### HBA1C, TS H, LIPNF #### [facility] [address], [place] [address] Neutrophils/100 WBC (Bld) 61.7 % Normal [facility] (99395) Comment: Performed By: #### HBA1C, TS H, LIPNF #### [facility] [address] [place], [place] [address] NRBCs 0.0 0 /100 WBC Normal 02-15-2020 [facility] (32923) Comment: Performed By: #### HBA1C, TS H, LIPNF #### [facility] [address] [place], [place] [address] Platelet mean volume 10.6 9.0-12.7 fL Normal 0 [facility] (Bld) [Entitic vol] [place] ([address]) Comment: Performed By: #### HBA1C, TS H, LIPNF #### [facility] [address], [place] [address] Platelets (Bld) [#/Vol] 435 150-400 k/uL High 2019 [facility] (76381) Comment: Performed By: #### HBA1C, TS H, LIPNF #### [facility] [address], [place] [address] RBC (Bld) [#/Vol] 4.19 3.90-5.20 m/uL Normal 02-15-2020 [facility] (46210) Comment: Performed By: #### HBA1C, TS H, LIPNF #### [facility] [address], [place] [address] WBC (Bld) [#/Vol] 9.80 3.70-11.00 k/uL Normal 02-15-2020 [facility] (41309) Comment: Performed By: #### HBA1C, TS H, LIPNF #### [facility] [address], [place] [address] amylase on Amylase [Catalytic 52 30-104 U/L Normal 02-15-2020 [facility] activity/Vol] [place] and (57988) Comment: Performed By: #### HBA1C, TS H, LIPNF #### [facility] [address], [place] [address] progress on 2020-02 PROGRESS HNO ID: [id number] Normal 02-14-2020 [facility] Author: Jessica Coppola) [facility] [place] ([address]) Service: ? Author Type: Physician Senior Architect Type: Progress Notes Filed: 02/14/2020 1:14 PM Note Text: This note was created using LiveDealriter. Subjective Sally Mcgregor is a 39 year [...] Benign liver cyst 05/24/2010 CT scan at [facility] 11/2009 and 04/2010 showe 4 mm increase in size . No pain. No elevated LFTs on 03/11/2010. - Calculus of kidney 05/17/[address] Nicolas: Hospitalized age 20, and again later -- no procedures so far ([facility], [facility], 1995 [facility]) - Dysmenorrhea - Impaired fasting glucose [...] MG DAILY September 02, 2019 5:34am 09-02-2019 [facility] (84343) - ondansetron orally disintegrating (ZOFRAN ODT) 4 [...] Approx. 3 cigarettes daily-1 pack every w paimiut Substance Use Topics - Alcohol use: Yes [...] Sp. Request/Comment: - Swab Critical ly 02-14-2020 [facility] abnormal [place] Culture Result - Few Neris glabrata --> ABNORMAL ALERT (79402) Comment: Performed By: #### HBA1C, TS H, LIPNF #### [facility] [address] [place] [address] cnov on 2020-02-14 CNOV Office Visit (UCWSTR) Normal 02-14-20 [place] [facility] SALLY MCGREGOR ([id number]) 1980 [facility] Date Time Provider Department ([id number]) 02/14/20 12:45 PM JESSICA JESUS (CHAZ) UCWSTR [...] Benign liver cyst 05/24/2010 CT scan at [facility] 11/2009 and 04/2010 showe 4 mm increase in size . No pain. No elevated LFTs on 03/11/2010. - Calculus of kidney 05/17/[address] Nicolas: Hospitalized age 20, a nd again later -- no procedures so far [facility]) - Dysmenorrhea - Impaired fasting glucose [...] DAILY September 02, 2019 5:34am 12-20-2 019 [facility] ([id number]) - ondansetron orally disintegrating (ZOFRAN ODT) 4 [...] removed - TOTAL ABDOM HYSTERECTOMY 08/31/06 Hysterectomy, [facility] FAMILY HISTORY Problem Relation Age of [...] Approx. 3 cigarettes daily-1 pack every w paimiut Substance Use Topics - Alcohol use: Yes [...] (METRONIDAZOLE HCL) 03/11/2010 12 - Shortness of [place] th IBUPROFEN 06/18/2016 8 - GI Upset [...] mLRfl: 0 FUNGAL SCREEN [SQFUNGSC] Order #: [id number] Prescriptions as of 02/14/2020 Sig: PROMETHAZINE 25 [...] JESUS PA-C on 02/14/20 cnpn on 2020-02-[facility]) Normal 02-13-2020 [place] SALLY Martinez ([id number]) 1980 [facility] Date Time Provider Department (92433) 02/13/20 MARCELINO MEJIAPWS During your visit today, we recorded the following informati on about you: Christopher Carcamo RN 02/13/2020 10:27 AM Signed Patient reports she was discharged from [facility] yesterday, after a 4 day stay, for pancreatitis. Scheduled f/u visit with PA, for tomorro w. Patient asking note be sent to provider also. Reports she still has a sore on he r tongue, [facility] doctor was not concerned about it. [...] (METRONIDAZOLE HCL) 03/11/2010 12 - Shortness of [place] th IBUPROFEN 06/18/2016 8 - GI Upset PENICILLINS 12/07/2009 2 - Rash PREDNISONE 06/18/2016 14 - Other: See Comments Comments: makes agitated and mean Date Reviewed: 01/02/2020 Reviewed by: Ashley Lehman Ma - Fully Assessed Reason for Visit: [facility] visit [Other] Prescriptions as of 02/13/2020 [...] Encounter Status:Closed by ROXANNE PATEL on 02/13/20 adams-nervine asylumn on 2020-02-09 [facility] Normal 02-09-2020 [place] [facility] SALLY MCGREGOR ([id number]) 1980 [facility] Date Time Provider Department ([id number]) 02/09/20 [facility] During your visit today, we recorded [...] calls back, stating she is currently at [facility] ER. States she had labs done [...] 02/09/20 progress on 2020-01 PROGRESS HNO ID: [id number] Normal 02-08-2020 [facility] Author: Isable Romero) [place] ([id number]) Service: ? Author Type: Physician Senior Architect Type: Progress Notes Filed: 02/08/2020 10:57 AM [...] per patient report who presented to the [facility] ED on 02/01/20 with i ntermittent [...] seroquel and she has talked with [facility] office for what to do next. She has been taking oxycodone every 4 hours but has not need any yet today. Does mention a sore on her forearm. States getting worse. Red and hardened. 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 States she noticed it first in hospital. She is unable to send picture or have video conference. Is w illing to come to . HISTORY REVIEWED (electronic chart updated): - medical history - medications - allergies REVIEW OF SYSTEMS: As noted in HPI PHYSICAL EXAMINATION: [facility] 08/10/2006 No vitals taken. Deferred physical [...] minutes progress on 2020-01 PROGRESS HNO ID: [id number] Normal 02-07-2020 [facility] Author: Yvette Huffman RN [place] ([id number]) Service: ? Author Type: ? Type: Progress [...] might be hidden SUMMARY: -Pt discharged from [facility] on 02-05-2020. -Follow up appointment on [...] per patient report who presented to the [facility] ED on 02/01/20 with i ntermittent [...] CNPTOUTREACH Patient Outreach (FAMPWS) Normal 0 02-07-2020 [place] Debra SALLY MCGREGOR ([id number]) 1980 [facility] Time Provider Department (14693) 02/07/20 MARCELINO MEJIA During your visit today, [...] might be hidden SUMMARY: -Pt discharged from [facility] on 02-05-2020. 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 nghia Pain Syndrome, Migraines, Known Lung Nodules, Hx Uteri ne CA, Hx Nephrolithiasis, Tobacco use, Anxiety and Depression with Suspected Bipolar disorder recently starte d on seroquel and sertraline, Recent Dental ev aluation with Infection on clindamycin with planned upcoming removal in 4-6 week s per patient report who presented to the [facility] ED on 02/01/20 with intermittent epigastric [...] (METRONIDAZOLE HCL) 03/11/2010 12 - Shortness of [place] th IBUPROFEN 06/18/2016 8 - GI Upset PENICILLINS 12/07/2009 2 - Rash PREDNISONE 06/18/2016 14 - Other: See Comments Comments: makes agitated and mean Date Reviewed: 01/02/2020 Reviewed by: Ashley Lheman Ma - Fully Assessed Reason for Visit: [...] 02/07/20 emergency report on 2020-01-28 EMERGENCY REPORT [facility] Normal 01-27 [facility] EMERGENCY ROOM REPORT ([id number]) NAME ACCOUNT SEX AGE ADMIT DISCHARGE PT MED. RECORD# NUMBER DATE DATE TYPE SAM, [id number] F 39 01/20/20 01/21/20 [place] ZHENG [id number] ROOM: ER DATE OF : 1980 DICTATING [...] PHYSICAL EXAMINATION: Physic al examination reveals a xgy-vrv-ruaqzendb female in no acute distress, resting c [...] plan for transfer to an outside [facility] for further management. Discussed the patient with Dr. Coleman at [facility], who accepted the patient for admission. The patient was transferred to [facility] in stable condition. Dictated By: Ana Alcantar MD 01/21/20 01:30 JOB #: [id number] Transcribed By: thanh 01/21/20 10:04 Electronically signed by: Jennifer Perez MD 01/28/20 00:29 Page 2 of 2 SALLY MCGREGOR Emergency Room Report myco on 2020-01-26 Mycoplasma IgG POS Normal 01-26-2020 [facility] ([place]) ([id number]) Comment: Result Comment: INTERPRETATI ON OF MYCOPLASMA [...] CBC, ADIF F, ANEU, BMP, GFR #### [place] [address] progress on 2020-01 PROGRESS HNO ID: [id number] Normal 01-25-2020 [facility] Author: Roxanne Patel MA ([id number]) Service: ? Author Type: Construction Economist Type: Progress Notes Filed: 01/25/2020 7:39 AM Note Text: Te made to get setup. Roxanne Patel MA cnpn on 2020-01-25 CNPN Telephone (FAMPWS) Normal 01-25-2020 [facility] SALLY MCGREGOR ([id number]) 1980 [facility] Date Time Provider Department ([id number]) 01/25/20 ISABEL ARIAS) [facility] During your visit today, we recorded the following informati on about you: Roxanne Patel MA, MA 01/25/2020 7:39 AM Signed Please help patient get setup for MRI. BROCK Fritz Pss 01/25/2020 11:05 AM Signed Attempted to reach patient and she does not have a voice m ail set up Trying to schedule an MRI of the Brain Milly Green [facility] 01/25/2020 3:35 PM Signed Spoke with patient [...] (METRONIDAZOLE HCL) 03/11/2010 12 - Shortness of [place] th IBUPROFEN 06/18/2016 8 - GI Upset [...] 01/26/20 progress on 2020-01 PROGRESS HNO ID: [id number] Normal 01-24-2020 [facility] Author: Isabel (Pa-Kimmie) [facility] ([id number]) Service: ? Author Type: Physician Senior Architect Type: Progress Notes Filed: 01/24/2020 4:03 PM Note Text: DISTANCE HEALTH VISIT This Team Access Model visit is a phone encounter. It requir ed patient-provider interaction for the medical decision making as documented below. No video was used for evaluation of this patient. Patient consents to visit. Patient's location: [place] Chief Complaint No chief complaint on file. [...] patient was to see pain specialist in [facility]. She has missed or cancelled appointments due [...] over the weekend. She was transferred to [facility] in [place]. Reports n ot available but patient states ECHO and labs were normal. . States she received a phone call from an gardiner And was told negative for Covid. But [...] pharmacy. She did receive phone call from conche operator last week and w ill be set up for heart monitor. She was suppose to have stress testing done at [facility] today and Carotid US done yesterday, [...] Benign liver cyst 05/24/2010 CT scan at [facility] 11/2009 and 04/2010 showe 4 mm increase in size . No pain. No elevated LFTs on 03/11/2010. - Calculus of kidney 05/17/[address] Nicolas: Hospitalized age 20, and again later -- no procedures so far ([facility]) - Dysmenorrhea - Impaired fasting glucose [...] removed - TOTAL ABDOM HYSTERECTOMY 08/31/06 Hysterectomy, [facility] Family History FAMILY HISTORY Problem Relation [...] MG DAILY September 02, 2019 5:34am 09-02-2019 [facility] ([id number]) - ondansetron orally disintegrating (ZOFRAN ODT) 4 [...] mg capsule Take 1 capsule by mo mah daily at bedtime for 90 days. - [...] Approx. 3 cigarettes daily-1 pack every w paimiut Substance Use Topics - Alcohol use: Yes [...] - ICD9: 786.59, ICD10: R07.89 Continue with conche operator. Will attempt to get records to see [...] minutes covid on 2020-01-24 COVID 19 Result REAL ESTATE SERVICES COORDINATOR See Below [facility] Normal 01-24-2020 [facility] ([place]) (0000 0) Comment: Result Comment: Negative Negative for COVID19 (SARS C oV2) by PCR. This test was developed and its performance characteristics determined by [facility]'s [facility] [place]. This test has bee n authorized by [...] issued on November 12, 2019. Performed By: [facility] [employer] [place] [address] Composite Layup Worker: Raphael liriano III, M.D. CLIA#: [id number] Phone#: Performed By: #### CBC, ADIF F, ANEU, BMP, GFR #### [place] [address] COVID 19 Source [employer] ESTATE SERVICES COORDINATOR See Below Normal 01-24-2020 [facility] ([place]) (87397) Comment: Result Comment: Nasopharynge al Swab Performed By: [facility] [place] [address] Composite Layup Worker: Raphael liriano III, M.D. CLIA#: [id number] Phone#: Performed By: #### CBC, ADIF F, ANEU, BMP, GFR #### [address] [address] myco on 2020-01-23 Mycoplasma IgM Negative Normal 01-23-2020 [facility] ([place]) (93212) Comment: Result Comment: INTERPRETATI ON OF MYCOPLASMA [...] CBC, ADIF F, ANEU, BMP, GFR #### [address] [address] crp on 2020-01-23 CRP [Mass/Vol] 0.57 <=0.80 mg/dL Normal 01-23-2020 [facility] ([place]) (50616) Comment: Performed By: #### CBC, ADIF F, ANEU, BMP, GFR #### [address] [address] cnpn on 2020-01-23 CNPN Telephone (FAMPWS) Normal 01-23-2020 [place] [facility] SALLY MCGREGOR ([id number]) 1980 F [place] Date Time Provider Department (54126) 01/23/20 ISABEL ARIAS (MAYA) FAMPWS During your visit today, we recorded the following informati on about you: Lexy Tapia RN 01/23/2020 8:55 AM Signed fyi-Patient calls to report that she went to [facility] with chest pain. Transferred to [facility] and Echo was normal. 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 in [facility] so waiting o n community action [...] Erythrocyte distribution 14.1 11.5-15.5 % Normal 01-22 [facility] (RBC) [Ratio] [facility] ([place]) ([address]370) Comment: Performed By: #### CBC, ADIF F, ANEU, BMP, GFR #### [address] [address] Hematocrit (Bld) [Volume 35.6 34.0-46.0 % Normal 01-22 [facility] fraction] ([place]) (0000 0) Comment: Performed By: #### CBC, ADIF F, ANEU, BMP, GFR #### [address] [address] Hemoglobin (Bld) 11.9 12.0-16.0 G/dL Low 01-23-2020 [facility] [Mass/Vol] ([place]) (000 00) Comment: Performed By: #### CBC, ADIF F, ANEU, BMP, GFR #### [address] [address] MCH (RBC) [Entitic mass] 30.0 27.0-33.0 pg Normal 01-22 [facility] ([place]) (0000 0) Comment: Performed By: #### CBC, ADIF F, ANEU, BMP, GFR #### [address] [address] MCHC (RBC) [Mass/Vol] 33.4 32.0-36.0 G/dL Normal 01-23-20 20 [facility] ([place]) (0000 0) Comment: Performed By: #### CBC, ADIF F, ANEU, BMP, GFR #### [address] [address] MCV (RBC) [Entitic vol] 89.8 80.0-99.0 fL Normal 2019 [facility] ([place]) (0000 0) Comment: Performed By: #### CBC, ADIF F, ANEU, BMP, GFR #### [place] [id number] Platelet mean volume 8.5 6.6-10.5 fL Normal 0 [facility] (Bld) [Entitic vol] ([place]) (74773) Comment: Performed By: #### CBC, ADIF F, ANEU, BMP, GFR #### [address] [address] Platelets (Bld) [#/Vol] 235 150-450 10 3/mcL Normal 2019 [facility] ([place]) (87569) Comment: Performed By: #### CBC, ADIF F, ANEU, BMP, GFR #### [address] [address] RBC (Bld) [#/Vol] 3.97 4.10-5.30 10 6/mcL Low 01-23-2020 A [facility] ([place]) (0000 0) Comment: Performed By: #### CBC, ADIF F, ANEU, BMP, GFR #### [address] [address] WBC (Bld) [#/Vol] 10.20 4.50-10.80 10 3/mcL Normal 01-23-2020 [facility] ([place]) (80897) Comment: Performed By: #### CBC, ADIF F, ANEU, BMP, GFR #### [address] [address] bmp on 2020-01-23 Creatinine [Mass/Vol] 0.94 0.50-1.20 mg/dL Normal 01-23-20 20 [facility] ([place]) (43063) Comment: Performed By: #### CBC, ADIF F, ANEU, BMP, GFR #### [address] [address] Urea nitrogen/Creatinine 20.2 10.0-22.0 ratio Normal 01-22 [facility] [Mass ratio] [facility] ([place]) (95344) Comment: Performed By: #### CBC, ADIF F, ANEU, BMP, GFR #### [address] [address] Calcium [Mass/Vol] 9.4 8.4-10.1 mg/dL Normal 01-23-2020 [facility] ([place]) (0000 0) Comment: Performed By: #### CBC, ADIF F, ANEU, BMP, GFR #### [address] [address] Chloride [Moles/Vol] 106 98-110 mEq/L Normal 0 [facility] ([place]) (0000 0) Comment: Performed By: #### CBC, ADIF F, ANEU, BMP, GFR #### [address] [address] CO2 [Moles/Vol] 28 22-32 mEq/L Normal 01-23-2020 [facility] ([place]) (43834) Comment: Performed By: #### CBC, ADIF F, ANEU, BMP, GFR #### [address] [address] Electrolyte Balance 6.0 4.0-15.0 mEq/L Normal 01-23-2020 [facility] ([place]) (0000 0) Comment: Performed By: #### CBC, ADIF F, ANEU, BMP, GFR #### [address] [address] Glucose [Mass/Vol] 91 70-110 mg/dL Normal 01-23-2020 [facility] ([place]) (06470) Comment: Performed By: #### CBC, ADIF F, ANEU, BMP, GFR #### [address] [address] Potassium [Moles/Vol] 4.2 3.5-5.0 mEq/L Normal 01-23-20 20 [facility] ([place]) (0000 0) Comment: Performed By: #### CBC, ADIF F, ANEU, BMP, GFR #### [address] [address] Sodium [Moles/Vol] 140 136-145 mEq/L Normal 01-23-2020 [facility] ([place]) (34430) Comment: Performed By: #### CBC, ADIF F, ANEU, BMP, GFR #### [address] [address] Urea nitrogen [Mass/Vol] 19.0 8.0-22.0 mg/dL Normal 01-22 [facility] ([place]) (26869) Comment: Performed By: #### CBC, ADIF F, ANEU, BMP, GFR #### [address] [address] .morph on 2020-01-13 1 Platelets (Bld) [#/Vol] Normal Normal 2019 [facility] ([place]) (70744) Comment: Result Comment: Few large pl atelets seen. Performed By: #### CBC, ADIF F, ANEU, BMP, GFR #### [address] [address] RBC morphology finding Nom Normal Normal [facility] (d) ([place]) (0000 0) Comment: Performed By: #### CBC, ADIF F, ANEU, BMP, GFR #### [address] [address] .manual diff on -01-22 Basophil %, Manual 0.0 0.0-2.5 % Normal 01-23-2020 [facility] ([place]) (67591) Comment: Performed By: #### CBC, ADIF F, ANEU, BMP, GFR #### [address] [address] Basophil, Abs Manual 0.00 0.00-0.27 10 3/mcL Normal 0 [facility] ([place]) (69685) Comment: Performed By: #### CBC, ADIF F, ANEU, BMP, GFR #### [address] [address] Cells Counted 100 Normal 01-23-2020 [facility] ([place]) (96868) Comment: Performed By: #### CBC, ADIF F, ANEU, BMP, GFR #### [address] [address] Eosinophil %, Manual 0.0 0.0-6.0 % Normal 0 [facility] ([place]) (03552) Comment: Performed By: #### CBC, ADIF F, ANEU, BMP, GFR #### [address] [address] Eosinophil, Abs Manual 0.00 0.00-0.65 10 3/mcL Normal 020 [facility] ([place]) (39276) Comment: Performed By: #### CBC, ADIF F, ANEU, BMP, GFR #### [place] [address] Lymphocyte %, Manual 16.0 20.0-40.0 % Low 0 [facility] ([place]) (29667) Comment: Performed By: #### CBC, ADIF F, ANEU, BMP, GFR #### [address] [address] Lymphocyte, Abs Manual 1.63 0.90-4.32 10 3/mcL Normal 020 [facility] ([place]) (96769) Comment: Performed By: #### CBC, ADIF F, ANEU, BMP, GFR #### [place] [id number] Monocyte %, Manual 5.0 2.0-13.0 % Normal 01-23-2020 [facility] ([place]) (13573) Comment: Performed By: #### CBC, ADIF F, ANEU, BMP, GFR #### [place] [id number] Monocyte, Abs Manual 0.51 0.09-1.40 10 3/mcL Normal 0 [facility] ([place]) (46738) Comment: Performed By: #### CBC, ADIF F, ANEU, BMP, GFR #### [address] [address] Neutrophil %, Manual 79.0 50.0-75.0 % High 0 [facility] ([place]) (45079) Comment: Performed By: #### CBC, ADIF F, ANEU, BMP, GFR #### [place] [address] Neutrophil, Abs Manual 8.06 2.25-8.10 10 3/[facility] Normal 020 [facility] ([place]) (46906) Comment: Performed By: #### CBC, ADIF F, ANEU, BMP, GFR #### [address] [address] .gfr on 2020-01-23 GFR >60 Normal 0 [facility] ([place]) (31790) Comment: Result Comment: GFR Population mean for Afri can Ecuadorean, Non- Americans Ages 20-29 = 116 mL/min/1.73 [...] CBC, ADIF F, ANEU, BMP, GFR #### [place] [address] GFR Non- >60 Normal 01-22 -2019 [facility] ([place]) (47614) Comment: Result Comment: GFR Population mean for Afri can Ecuadorean, Non- Americans Ages 20-29 = 116 mL/min/1.73 [...] CBC, ADIF F, ANEU, BMP, GFR #### [address] [address] spag on 2020-01-22 SPAG . Normal 01-22-2020 Critical access hospital - Microbiology [facility] ([facility] (26933) PROCEDURE: Streptococcus Pneumoniae Urine Antig [^1 *1] [...] Locations *1: This test was performed at: [facility], [address] [place] [address], [id number]- , [place] Comment: Performed By: #### CBC, ADIF F, ANEU, BMP, GFR #### [address] [address] respid on 2020-01-13 0 Adenovirus Not Detected Not Detected Normal 01-22-2020 [facility] ([place]) (0000 0) Comment: Performed By: #### CBC, ADIF F, ANEU, BMP, GFR #### [address] [address] Bordetella Not Detected Not Detected Normal 01-22-2020 [facility] Parapertussis Found[facility] ([place]) (37242) Comment: Performed By: #### CBC, ADIF F, ANEU, BMP, GFR #### [address] [address] Bordetella Pertussis Not Detected Not Detected Normal [facility] ([place]) (73841) Comment: Performed By: #### CBC, ADIF F, ANEU, BMP, GFR #### [address] [address] Chlamydophila Not Detected Not Detected Normal 01-22-2020 [facility] pneumoniae Foundatio n ([place]) (54156) Comment: Performed By: #### CBC, ADIF F, ANEU, BMP, GFR #### [address] [address] Coronavirus 229E Not Detected Not Detected Normal [facility] (Not COVID-19) Found ation ([place]) (14141) Comment: Performed By: #### CBC, ADIF F, ANEU, BMP, GFR #### [address] [address] Coronavirus HKU1 Not Detected Not Detected Normal 020 [facility]-19[facility] (97125) Comment: Performed By: #### CBC, ADIF F, ANEU, BMP, GFR #### [address] [address] Coronavirus NL63 Not Detected Not Detected Normal 020 [facility] (Not COVID-19) Found [facility]ion ([place]) (05320) Comment: Performed By: #### CBC, ADIF F, ANEU, BMP, GFR #### [address] [address] Coronavirus OC43 Not Detected Not Detected Normal 020 [facility] (Not COVID-19) Found [place]ion [place]) (26231) Comment: Performed By: #### CBC, ADIF F, ANEU, BMP, GFR #### [place] [address] Human Metapneumovirus Not Detected Not Detected Normal [facility] ([place]) (33531) Comment: Performed By: #### CBC, ADIF F, ANEU, BMP, GFR #### [place] [address] Influenza A Not Detected Not Detected Normal 01-22-2020 A [facility] ([place]) (0000 0) Comment: Performed By: #### CBC, ADIF F, ANEU, BMP, GFR #### [place] [address] Influenza B Not Detected Not Detected Normal 01-22-2020 A [facility] ([place]) (0000 0) Comment: Performed By: #### CBC, ADIF F, ANEU, BMP, GFR #### [place] [address] Mycoplasma Not Detected Not Detected Normal 01-22-2020 [facility] pneumoniae Foundatio n ([place]) (26841) Comment: Performed By: #### CBC, ADIF F, ANEU, BMP, GFR #### [place] [address] Parainfluenza 1 Not Detected Not Detected Normal 01-22-20 20 [facility] ([place]) (89917) Comment: Performed By: #### CBC, ADIF F, ANEU, BMP, GFR #### [place] [address] Parainfluenza 2 Not Detected Not Detected Normal 01-22-20 20 [facility] ([place]) (68808) Comment: Performed By: #### CBC, ADIF F, ANEU, BMP, GFR #### [place] [address] Parainfluenza 3 Not Detected Not Detected Normal 01-22-20 [facility] ([place]) (73219) Comment: Performed By: #### CBC, ADIF F, ANEU, BMP, GFR #### [place] [address] Parainfluenza 4 Not Detected Not Detected Normal 01-22-20 [facility] ([place]) (14816) Comment: Performed By: #### CBC, ADIF F, ANEU, BMP, GFR #### [address] [address] Respiratory Not Detected Not Detected Normal 01-22-2020 A [facility] Syncytial Virus Foun dation ([place]) (82835) Comment: Performed By: #### CBC, ADIF F, ANEU, BMP, GFR #### [address] [address] Rhinovirus/Enterovirus Not Detected Not Detected Normal 0 01-22-2020 [facility] ([place]) (18377) Comment: Performed By: #### CBC, ADIF F, ANEU, BMP, GFR #### [address] [address] sonali on 2020-01-22 SONALI . Normal 01-22-2020 [facility] MICRO - Microbiology [facility] ([place]) (33281) PROCEDURE: Legionella Urine Ag [*1] SOURCE: Urine [...] Locations *1: This test was performed at: [facility], [address] [place] [address], [address]- , [place] Comment: Performed By: #### CBC, ADIF F, ANEU, BMP, GFR #### [address] [address] ldh on 2020-01-22 LDH 194 120-246 U/L Normal 01-22-2020 [facility]) (10701) Comment: Performed By: #### CBC, ADIF F, ANEU, BMP, GFR #### [facility] [address] [place] [address] fib on 2020-01-22 Fibrinogen 414 250-550 mg/dL Normal 01-22-2020 [facility] ([place]) (71775) Comment: Performed By: #### CBC, ADIF F, ANEU, BMP, GFR #### [facility] [address] [place] [address] ferr on 2020-01-22 Ferritin [Mass/Vol] 40 8-252 ng/mL Normal 01-22-2020 [facility] ([place]) (92067) Comment: Performed By: #### CBC, ADIF F, ANEU, BMP, GFR #### [facility] [address] [place] [address] dimer on 2020-01-22 Fibrin D-dimer FEU IA <200 0-230 ug/mL Normal 01-22-20 20 [facility] (d) [Mass/Vol] ([place] ) (21732) Comment: Result Comment: Results repo rted in [...] CBC, ADIF F, ANEU, BMP, GFR #### [facility] [address] [place] [address] angiography chest w/contrast on 2020-01-22 CT ANGIOGRAPHY ORIGINAL Normal 01-22-2020 [facility] CHEST W/CONTRAST CT PULMONARY ANGIOGRAM WITH IV CONTRAST: with post-processing, volume rendering and 3-D acquisitions. This exam was performed according to our departmental dose optimization program, and includes the [facility] ([place]) llowing measures where appli cable: automated exposure control, adjustment of the mAs and/or kVp according to patient size and/or exam, and an iterative reconstruction algorithm. Patient received 13 hour (10620) contrast allergy preparation. CLINICAL STATEMENT: elevated d [...] Erythrocyte distribution 13.7 11.5-15.5 % Normal 01-21 [facility] width (RBC) [Ratio] [facility] ([place]) (55937) Comment: Performed By: #### CBC, ADIF F, ANEU, BMP, GFR #### [facility] [address] [place] [address] Hematocrit (Bld) [Volume 36.0 34.0-46.0 % Normal 01-21 [facility] fraction] ([place]) (0000 0) Comment: Performed By: #### CBC, ADIF F, ANEU, BMP, GFR #### [place] [address] Hemoglobin (Bld) 11.9 12.0-16.0 G/dL Low 01-22-2020 [facility] [Mass/Vol] ([place]) (000 00) Comment: Performed By: #### CBC, ADIF F, ANEU, BMP, GFR #### [place] [address] MCH (RBC) [Entitic mass] 29.6 27.0-33.0 pg Normal 01-21 [facility] ([place]) (0000 0) Comment: Performed By: #### CBC, ADIF F, ANEU, BMP, GFR #### [place] [address] MCHC (RBC) [Mass/Vol] 33.0 32.0-36.0 G/dL Normal 01-22-20 20 [facility] ([place]) (0000 0) Comment: Performed By: #### CBC, ADIF F, ANEU, BMP, GFR #### [place] [address] MCV (RBC) [Entitic vol] 89.8 80.0-99.0 fL Normal 2019 [facility] ([place]) (0000 0) Comment: Performed By: #### CBC, ADIF F, ANEU, BMP, GFR #### [place] [address] Platelet mean volume 8.6 6.6-10.5 fL Normal 0 [facility] (Bld) [Entitic vol] ([place]) (02485) Comment: Performed By: #### CBC, ADIF F, ANEU, BMP, GFR #### [place] [id number] Platelets (Bld) [#/Vol] 269 150-450 10 3/mcL Normal 2019 [facility] ([place]) (41667) Comment: Performed By: #### CBC, ADIF F, ANEU, BMP, GFR #### [address] [address] RBC (Bld) [#/Vol] 4.01 4.10-5.30 10 6/mcL Low 01-22-2020 [facility] ([place]) (0000 0) Comment: Performed By: #### CBC, ADIF F, ANEU, BMP, GFR #### [address] [address] WBC (Bld) [#/Vol] 12.20 4.50-10.80 10 3/mcL High 01-22-2020 [facility] ([place]) (0000 0) Comment: Performed By: #### CBC, ADIF F, ANEU, BMP, GFR #### [address] [address] bmp on 2020-01-22 Calcium [Mass/Vol] 9.5 8.4-10.1 mg/dL Normal 01-22-2020 [facility] ([place]) (0000 0) Comment: Performed By: #### CBC, ADIF F, ANEU, BMP, GFR #### [place] [id number] Chloride [Moles/Vol] 106 98-110 mEq/L Normal 0 [facility] ([place]) (0000 0) Comment: Performed By: #### CBC, ADIF F, ANEU, BMP, GFR #### [address] [address] CO2 [Moles/Vol] 24 22-32 mEq/L Normal 01-22-2020 [facility] ([place]) (21235) Comment: Performed By: #### CBC, ADIF F, ANEU, BMP, GFR #### [address] [address] Creatinine [Mass/Vol] 0.76 0.50-1.20 mg/dL Normal 01-22-20 20 [facility] ([place]) (32156) Comment: Performed By: #### CBC, ADIF F, ANEU, BMP, GFR #### [address] [address] Electrolyte Balance 6.0 4.0-15.0 mEq/L Normal 01-22-2020 [facility] ([place]) (0000 0) Comment: Performed By: #### CBC, ADIF F, ANEU, BMP, GFR #### [address] [address] Glucose [Mass/Vol] 149 70-110 mg/dL High 01-22-2020 [facility] ([place]) (20413) Comment: Performed By: #### CBC, ADIF F, ANEU, BMP, GFR #### [address] [address] Potassium [Moles/Vol] 4.1 3.5-5.0 mEq/L Normal 01-22-20 [facility] ([place]) (0000 0) Comment: Performed By: #### CBC, ADIF F, ANEU, BMP, GFR #### [address] [address] Sodium [Moles/Vol] 136 136-145 mEq/L Normal 01-22-2020 [facility] ([place]) (19105) Comment: Performed By: #### CBC, ADIF F, ANEU, BMP, GFR #### [address] [address] Urea nitrogen [Mass/Vol] 12.0 8.0-22.0 mg/dL Normal 01-21 [facility] ([place]) (87646) Comment: Performed By: #### CBC, ADIF F, ANEU, BMP, GFR #### [address] [address] Urea nitrogen/Creatinine 15.8 10.0-22.0 ratio Normal 01-21 [facility] [Mass ratio] Foundat ion ([place]) (63111) Comment: Performed By: #### CBC, ADIF F, ANEU, BMP, GFR #### [address] [address] .neuabs on Neutrophils (Bld) 10.70 2.25-8.10 10 3/mcL High 01-22-2020 [facility] [#/Vol] [facility] ([place]) (40628) Comment: Performed By: #### CBC, ADIF F, ANEU, BMP, GFR #### [address] [address] .gfr on 2020-01-22 GFR Non- >60 Normal 01-21 [facility] ([place]) (75714) Comment: Result Comment: GFR Population mean for Afri can Ecuadorean, Non- Americans Ages 20-29 = 116 mL/min/1.73 [...] CBC, ADIF F, ANEU, BMP, GFR #### [place] [id number] GFR >60 Normal 0 [facility] ([place]) (58403) Comment: Result Comment: GFR Population mean for Afri can Ecuadorean, Non- Americans Ages 20-29 = 116 mL/min/1.73 [...] CBC, ADIF F, ANEU, BMP, GFR #### [address] [address] .auto diff on 01-21 Ammonia (P) [Mass/Vol] 0.30 0.09-1.40 10 3/mcL Normal 01-21-2 020 [facility] ([place]) (47800) Comment: Performed By: #### CBC, ADIF F, ANEU, BMP, GFR #### [address] [address] Basophils (Bld) 0.00 0.00-0.27 10 3/mcL Normal 01-22-2020 [facility] [#/Vol] [facility] ([place]) (22272) Comment: Performed By: #### CBC, ADIF F, ANEU, BMP, GFR #### [address] [address] Basophils/100 WBC (Bld) 0.3 0.0-2.5 % Normal 2019 [facility] ([place]) (0000 0) Comment: Performed By: #### CBC, ADIF F, ANEU, BMP, GFR #### [address] [address] Eosinophils (Bld) 0.00 0.00-0.65 10 3/mcL Normal 01-22-2020 [facility] [#/Vol] [facility] ([place]) (53139) Comment: Performed By: #### CBC, ADIF F, ANEU, BMP, GFR #### [address] [address] Eosinophils/100 WBC (Bld) 0.1 0.0-6.0 % Normal 01-12 0 [facility] ([place]) (0000 0) Comment: Performed By: #### CBC, ADIF F, ANEU, BMP, GFR #### [address] [address] Lymphocytes (Bld) 1.10 0.90-4.32 10 3/mcL Normal 01-22-2020 [facility] [#/Vol] [facility] ([place]) (02832) Comment: Performed By: #### CBC, ADIF F, ANEU, BMP, GFR #### [address] [address] Lymphocytes/100 WBC (Bld) 9.3 20.0-40.0 % Low - 0-2019 [facility] ([place]) (0000 0) Comment: Performed By: #### CBC, ADIF F, ANEU, BMP, GFR #### [address] [address] Monocytes/100 WBC (Bld) 2.2 2.0-13.0 % Normal 2019 [facility] ([place]) (0000 0) Comment: Performed By: #### CBC, ADIF F, ANEU, BMP, GFR #### [address] [address] Neutrophils/100 WBC (Bld) 88.1 50.0-75.0 % High 01-12 [facility] ([place]) (0000 0) Comment: Performed By: #### CBC, ADIF F, ANEU, BMP, GFR #### [address] [address] urinalysis with microscopy on 2020-01-21 Amorphous NONE Normal 01-21-2020 [facility] (15134) Comment: Performed By: #### [id number] ## ## [facility],[address] [place] [address] Bacteria LM.HPF (Urine sed) 3+ Normal [facility] [#/Area] [facility] ( 68206) Comment: Performed By: #### [id number] ## ## [facility],[address] [place] [address] Bilirubin [Mass/Vol] NEG NORMAL: NEGATIVE mg/dL Normal [facility] ospital (59119) Comment: Performed By: #### [id number] ## ## [facility],[address] [place] [address] Blood 10 NORMAL: NEGATIVE Abnormal 01-21-2020 [facility] (84259) Comment: Performed By: #### [id number] ## ## [facility],[address] [place] [address] 14438 Casts LM.LPF (Urine sed) NONE Normal 01-20 [facility] [#/Area] [facility] ( 37221) Comment: Performed By: #### [id number] ## ## [facility],[address] [place] [address] Clarity (U) sl.cloudy NORMAL: CLEAR Normal 01-21-2020 [facility] ( 55050) Comment: Performed By: #### [id number] ## ## [facility],[address] [place] [address] Color (U) p.yel NORMAL: YELLOW Normal 01-21-2020 [facility] (12284) Comment: Performed By: #### [id number] ## ## [facility],[address] [place] [address] 80161 Crystals LM Nom (Urine sed) NONE Normal [facility] ( 54741) Comment: Performed By: #### [id number] ## ## [facility],[address] [place] [address] 38135 Epi Cells MANY Normal 01-21-2020 [facility] (51957) Comment: Performed By: #### [id number] ## ## [facility],[address] [place] [address] Glucose [Mass/Vol] NORM NORMAL: NORMAL Normal 2019 [facility] ( 85475) Comment: Performed By: #### [id number] ## ## [facility],[address] [place] [address] 38783 Ketone NEG NORMAL: NEGATIVE Normal 01-21-2020 [facility] (45624) Comment: Performed By: #### [id number] ## ## [facility],[address] [place] [address]10 Mucous NONE Normal 01-21-2020 [facility] (47156) Comment: Performed By: #### [id number] ## ## [facility],[address] [place] [address] 35039 Nitrite Ql (U) NEG NORMAL: NEGATIVE Normal 01-21-20 [facility] ( 17673) Comment: Performed By: #### [id number] ## ## [facility],[address] [place] [address]258 pH (Bld) 5 NORMAL: 5.0-8.0 Normal 01-21-2020 [facility] (10267) Comment: Performed By: #### [id number] ## ## [facility],[address] [place] [address] 26551 Protein (U) NEG NORMAL: NEGATIVE mg/dL Normal 01-21-2020 [facility] [Mass/Vol] [facility] (19495) Comment: Performed By: #### [id number] ## ## [facility],[address] [place] [address] 50949 Rbc 0-5 0-3 / hpf Normal 01-21-2020 [facility] (07862) Comment: Performed By: #### [id number] ## ## [facility],[address] [place] [address] 469[address] Sp [place] 1.020 NORMAL: 1.010-1.030 Normal 0 [facility] ( 77761) Comment: Performed By: #### [id number] ## ## [facility],[address] [place] [address] 24837 Specimen type Nom (Spec) UNSPECIFIED Normal [facility] ( 47768) Comment: Performed By: #### [id number] ## ## [facility],[address] [place] [address]39 URINALYSIS WITH MICROSCOPY Normal [facility] (29125) Comment: Result Comment: URINALYSIS Performed By: #### [id number] ## ## [facility],[address] [place] [address] 24578 Urobilinog NORM NORMAL: NORMAL Normal 01-21-2020 [facility] (35580) Comment: Performed By: #### [id number] ## ## [facility],[address] [place] [address]1754 Wbc 1-5 0-5 / hpf Normal 01-21-2020 [facility] (40776) Comment: Performed By: #### [id number] ## ## [facility],[address] [place] [address]28 WBC (Bld) [#/Vol] NEG NORMAL: NEGATIVE 10*3/uL Normal 01-20 [facility] (94292) Comment: Result Comment: URINE MICROS COPIC Performed By: #### [id number] ## ## [facility],[address] [place] [address] 27165 Yeast LM Ql (Urine sed) NONE Normal 2019 [facility] (56684) Comment: Performed By: #### [id number] ## ## [facility],[address] [place] [address]276 troponin on 2020-01 Troponin I.cardiac <0.01 0.00 - 0.05 ng/mL Normal 0 [facility] [Mass/Vol] [facility] (78596) Comment: Result Comment: Elevated tro ponin (above [...] as heterophile antibodi es). Performed By: #### [id number] ## ## [facility],[address] [place] [address] tropi on 2020-01-21 Troponin I.cardiac <0.015 0.000-0.040 ng/mL Normal 0 [facility] [Mass/Vol] [facility] [place] (65915) Comment: Result Comment: Troponin I r eference ranges (05/22/14): 0.00-0.040 ng/mL Negative an d non-diagnostic. >0.040 ng/mL Consistent with cardiac damage, increased clinical risk and possibility of myocardial in farction. Serial measurements, a rise & fall in test results, clinical histo ry, appropriate symptoms and/or ECG changes may help assess possibility of GA. *Other non-acute coronary sy ndrome conditions such as CHF, myoc arditis, pulmonary emboli, sepsis and cardiac surgery could result in myoc ardial damage and increased troponi n levels. Performed By: #### TROPI ### # [place] [address] serum qual on 2020-01-21 EXTERNAL QC DONE? YES Normal 01-21-2020 [facility] (17708) Comment: Performed By: #### [id number] ## ## [facility],[address] [place] [address] INTERNAL QC PASS Normal 01-21-2020 [facility] (02973) Comment: Performed By: #### [id number] ## ## [facility],[address] [place], [place] [id number] SER NEGATIVE NEGATIVE Normal 01-21-2020 [facility] (18056) Comment: Performed By: #### [id number] ## ## [facility],[address] [place] [address] d-dimer, quantitative on 2020-01-21 D-DIMER QUANT 256 0 - 230 ng/ml High 01-21-2020 [facility] (93257) Comment: Performed By: #### [id number] ## ## [facility],[address] [place] [address] 16957 D-DIMER, QUANTITATIVE Normal 01-21-20 20 [facility] (96223) Comment: Result Comment: QUANT D-DIME R Performed By: #### [id number] ## ## [facility],[address] [place], [place] [id number] ct brain w/o contrast on 2020-01-21 CT BRAIN W/O [facility] Normal 0 [facility] [address] [place] [address] ([address]43) Patient: SALLY MCGREGOR Phone#: : 1980 Age: 39 Gender: F Pt. Type: ER Account: [id number] Location: 052 Ordering: DR. ANA ALCANTAR Exam Date: 01/20/202023:41 Family Phys: ISABEL ARIAS Charge Code: [id number] Physician: [place] Order #: [id number] DLP Dose#: [id number] PROCEDURE: CT BRAIN WITHOUT CONTRAST COMPARISON: [facility], CT, BRAIN W/O CON, 01/29/2017, 22:39. INDICATIONS: [...] 39 Gender: F Pt. Type: ER Account: [id number] Location: 052 Ordering: DR. ANA ALCANTAR Exam Date: 01/20/2020/23:41 Family Phys: ISABEL ARIAS Charge Code: [id number] Physician: Fulton Order #: [id number] DLP Dose#: [id number] Approved by: Kelsey Mae MD on 01/21/2020 at 18:04 cmp with egfr on 31-01-09 Age - Reported 39 years Normal 01-21-2020 [facility] (40652) Comment: Performed By: #### [id number] ## ## [facility],[address] [place] [address] 58286 Albumin [Mass/Vol] 4.3 3.4 - 4.8 g/dL Normal 01-21-2020 [facility] ( 34938) Comment: Performed By: #### [id number] ## ## [facility],[address] [place] [address] 31781 Albumin/Globulin [Mass 1.5 0.9 - 1.6 {ratio} Normal 020 [facility]] [facility] (61523) Comment: Performed By: #### [id number] ## ## [facility],[address] [place] [address] 21567 ALK PHOS 71 38 - 126 U/L Normal 01-21-2020 [facility] (52665) Comment: Performed By: #### [id number] ## ## [facility],[address] [place] [address] 41345 ALT/SGPT 11 8 - 35 U/L Normal 01-21-2020 [facility] (87889) Comment: Performed By: #### [id number] ## ## [facility],[address] [place] [address] 28243 Anion gap [Moles/Vol] 12 10 - 20 mmol/L Normal 01-21-20 [facility] ( 13432) Comment: Performed By: #### [id number] ## ## [facility],[address] [place] [address] 37068 AST/SGOT 12 13 - 39 U/L Low 01-21-2020 [facility] (66402) Comment: Performed By: #### [id number] ## ## [facility],[address] [place] [address] 13104 B/C RATIO 19 0 - 30 ratio Normal 01-21-2020 [facility] (51756) Comment: Performed By: #### [id number] ## ## [facility],1 [facility] 31083 Bilirubin [Mass/Vol] 0.3 0.0 - 1.5 mg/dl Normal 0 [facility] ( 03107) Comment: Performed By: #### [id number] ## ## [facility],[address] [place] [address] 52229 Calcium [Mass/Vol] 9.2 8.6 - 10.2 mg/dl Normal 01-21-2020 [facility] ( 14441) Comment: Performed By: #### [id number] ## ## [facility],[address] [place] [address] 96414 Chloride [Moles/Vol] 102 98 - 107 mmol/L Normal 0 [facility] ( 16381) Comment: Performed By: #### [id number] ## ## [facility],[address] [place] [address] 17064 CO2 [Moles/Vol] 25.6 21.0 - 31.0 mmol/L Normal 01-21-2020 [facility] ( 25484) Comment: Performed By: #### [id number] ## ## [facility],[address] [place] [address] 78439 Creatinine [Mass/Vol] 1.1 0.6 - 1.2 mg/dl Normal 01-21-20 20 [facility] ( 30677) Comment: Performed By: #### [id number] ## ## [facility],[address] [place] [address] 56299 GFR/1.73 sq M >60 60 - 999 mL/min/{1.73_m2} Normal 0 [facility] non-blacks MDRD (000 00) (S/P/Bld) [Vol rate/Area] [...] OF AGE AND OLDER. Performed By: #### [id number] ## ## [facility],[address] [place] [address] 44795 GFR/1.73 sq M predicted among Normal 01-21-2020 [facility] non-blacks MDRD (S/P/Bld) [Vol Hospital (51228) rate/Area] Comment: Result Comment: COMPREHENSIV E METABOLIC PANEL Performed By: #### [id number] ## ## [facility],[address] [place] [address] 09615 GFR/1.73 sq M predicted 55 60 - 999 ML/MINUTE Low 2019 [facility] among non-blacks MDRD Hospital (72020) (S/P/Bld) [Vol rate/Area] Comment: Performed By: #### [id number] ## ## [facility],[address] [place] [address] 48924 Globulin (S) [Mass/Vol] 2.9 1.5 - 3.8 G/DL Normal 2019 [facility] ( 94421) Comment: Performed By: #### [id number] ## ## [facility],[address] [place] [address] 81268 Glucose [Mass/Vol] 100 74 - 106 mg/dl Normal 01-21-2020 [facility] ( 50766) Comment: Performed By: #### [id number] ## ## [facility],[address] [place] [address] 52565 Potassium [Moles/Vol] 3.6 3.5 - 5.1 mmol/L Normal 01-21-20 20 [facility] ( 52812) Comment: Performed By: #### [id number] ## ## [facility],[address] [place] [address] 27829 Protein [Mass/Vol] 7.2 6.4 - 8.3 g/dl Normal 01-21-2020 [facility] ( 83606) Comment: Performed By: #### [id number] ## ## [facility],[address] [place] [address] 75860 Sodium [Moles/Vol] 136 136 - 145 mmol/l Normal 01-21-2020 [facility] ( 10088) Comment: Performed By: #### [id number] ## ## [facility],[address] [place] [address] 22539 Urea nitrogen [Mass/Vol] 21 6 - 20 mg/dl High 01-20 [facility] ( 87472) Comment: Performed By: #### [id number] ## ## [facility],[address] [place] [address] 05988 chest 2 views on 31-01-09 CHEST 2 VIEWS [facility] Normal 01-21-20 [facility] ospital [address] [place] [address] (57253) Patient: SALLY MCGREGOR Phone#: : 1980 Age: 39 Gender: F Pt. Type: ER Account: [id number] Location: 052 Ordering: DR. ANA ALCANTAR Exam Date: 01/20/2020/23:45 Family Phys: ISABEL ARIAS Charge Code: [id number] Physician: Fulton Order #: [id number] DLP Dose#: PROCEDURE: X-RAY CHEST 2 VIEWS COMPARISON: [facility], , CHEST 2 VIEWS, 11/25/2019, 0:08. INDICATIONS: [...] Erythrocyte distribution 13.6 11.5-15.5 % Normal 01-20 [facility] width (RBC) [Ratio] [facility] ([place]) (79247) Comment: Performed By: #### CBC, ADIF F, ANEU, BMP, GFR #### [address] [address] Hematocrit (Bld) [Volume 35.6 34.0-46.0 % Normal 01-20 [facility] fraction] ([place]) (0000 0) Comment: Performed By: #### CBC, ADIF F, ANEU, BMP, GFR #### [address] [address] Hemoglobin (Bld) 11.4 12.0-16.0 G/dL Low 01-21-2020 [facility] [Mass/Vol] ([place]) (000 00) Comment: Performed By: #### CBC, ADIF F, ANEU, BMP, GFR #### [address] [address] MCH (RBC) [Entitic mass] 29.5 27.0-33.0 pg Normal 01-20 [facility] ([place]) (0000 0) Comment: Performed By: #### CBC, ADIF F, ANEU, BMP, GFR #### [address] [address] MCHC (RBC) [Mass/Vol] 32.2 32.0-36.0 G/dL Normal 01-21-20 [facility] ([place]) (0000 0) Comment: Performed By: #### CBC, ADIF F, ANEU, BMP, GFR #### [address] [address] MCV (RBC) [Entitic vol] 91.7 80.0-99.0 fL Normal 2019 [facility] ([place]) (0000 0) Comment: Performed By: #### CBC, ADIF F, ANEU, BMP, GFR #### [place] [address] Platelet mean volume 8.6 6.6-10.5 fL Normal 0 [facility] (Bld) [Entitic vol] ([place]) (70431) Comment: Performed By: #### CBC, ADIF F, ANEU, BMP, GFR #### [place] [address] Platelets (Bld) [#/Vol] 250 150-450 10 3/mcL Normal 2019 [facility] ([place]) (06473) Comment: Performed By: #### CBC, ADIF F, ANEU, BMP, GFR #### [place] [address] RBC (Bld) [#/Vol] 3.88 4.10-5.30 10 6/mcL Low 01-21-2020 A [facility] ([place]) (0000 0) Comment: Performed By: #### CBC, ADIF F, ANEU, BMP, GFR #### [place] [address] WBC (Bld) [#/Vol] 6.20 4.50-10.80 10 3/mcL Normal 01-21-2020 [facility] ([place]) (58349) Comment: Performed By: #### CBC, ADIF F, ANEU, BMP, GFR #### [place] [address] cbc + diff on 01-20 Basophils (Bld) 0.10 0.00 - 0.10 x10EE3/UL Normal 01-21-2020 [facility] [#/Vol] [facility] (41339) Comment: Performed By: #### [id number] ## ## Mello [facility],[address] [place] [address] 89947 Basophils/100 WBC (Bld) 1.1 0.0 - 2.0 % Normal 2019 [facility] ( 27754) Comment: Performed By: #### [id number] ## ## [facility],[address] [place] [address] 31789 CBC + DIFF Normal 01-21-2020 [facility] (12202) Comment: Result Comment: CBC-COMPLETE BLOOD COUNT Performed By: #### [id number] ## ## [facility],[address] [place], [place] [address] Eosinophils (Bld) 0.40 0.00 - 0.50 x10EE3/UL Normal 01-21-2020 [facility] [#/Vol] [facility] (15497) Comment: Performed By: #### [id number] ## ## [place] [id number] Eosinophils/100 WBC (Bld) 5.5 0.0 - 7.0 % Normal [facility] ( 01642) Comment: Performed By: #### [id number] ## ## [address] [address] Erythrocyte distribution 13.5 12.0 - 15.6 % Normal [facility] width (RBC) [Ratio] [facility] (78732) Comment: Performed By: #### [id number] ## ## [address] [address] Hematocrit (Bld) [Volume 33.8 34.0 - 46.0 % Low [facility] fraction] [facility] ( 76640) Comment: Performed By: #### [id number] ## ## [address] [address] Hemoglobin (Bld) 11.7 12.0 - 16.0 g/dl Low 01-21-2020 [facility] [Mass/Vol] [facility] (18576) Comment: Performed By: #### [id number] ## ## [address],[place] [address] Lymphocytes (Bld) 2.30 0.80 - 2.80 x10EE3/UL Normal 01-21-2020 [facility] [#/Vol] [facility] (35337) Comment: Performed By: #### [id number] ## ## [place] [id number] Lymphocytes/100 WBC (Bld) 30.4 20.0 - 45.0 % Normal [facility] ( 18274) Comment: Performed By: #### 911142 ## ## [address] [address] MANUAL DIFF N/A Normal 01-21-2020 [facility] (76248) Comment: Performed By: #### [id number] ## ## [address] [address] MCH (RBC) [Entitic mass] 31 27 - 33 pg Normal 01-20 [facility] ( 70272) Comment: Performed By: #### [id number] ## ## [address] [address] MCHC (RBC) [Mass/Vol] 35 32 - 36 X10 3 Normal 01-21-20 20 [facility] ( 74542) Comment: Performed By: #### [id number] ## ## [address] [address] MCV (RBC) [Entitic vol] 88 80 - 99 fl Normal 2019 [facility] ( 96402) Comment: Performed By: #### [id number] ## ## [address] [address] Monocytes (Bld) 0.50 0.20 - 1.00 x10EE3/UL Normal 01-21-2020 [facility] [#/Vol] [facility] (69241) Comment: Performed By: #### [id number] ## ## [facility],[address] [place] [address] 81386 MONOS % 6.5 0.0 - 10.0 % Normal 01-21-2020 [facility] (63766) Comment: Performed By: #### [id number] ## ## [facility],[address] [place] [address] 14517 Morphology Adrian (Bld) [Interp] N/A Normal 01-21-2020 [facility] ( 94009) Comment: Performed By: #### [id number] ## ## [facility],[address] [place] [address] 67572 Neutrophils (Bld) 4.30 1.50 - 7.10 x10EE3/UL Normal 01-21-2020 [facility] [#/Vol] [facility] (18662) Comment: Performed By: #### [id number] ## ## [facility],[address] [place] [address] 57713 Neutrophils/100 WBC (Bld) 56.5 46.0 - 76.0 % Normal [facility] ( 03835) Comment: Performed By: #### [id number] ## ## [facility],[address] [place] [address] 11504 Platelet mean volume 8.3 6.6 - 10.5 fl Normal 01-21-20 20 [facility] (Bld) [Entitic vol] [facility] (56632) Comment: Result Comment: AUTOMATED DI FFERENTIAL Performed By: #### [id number] ## ## [facility],[address] [place] [address] 84052 Platelets (Bld) 298 150 - 450 x10EE3/UL Normal 01-21-2020 [facility] [#/Vol] [facility] (69926) Comment: Performed By: #### [id number] ## ## [facility],[address] [place] [address] 80023 RBC (Bld) [#/Vol] 3.82 4.10 - 5.30 x 10EE6/UL Low 0 [facility] ( 07714) Comment: Performed By: #### [id number] ## ## [facility],[address] [place] [address] 23682 WBC (Bld) [#/Vol] 7.6 4.5 - 10.8 x 10EE3/UL Normal 01-21-2020 [facility] ( 55066) Comment: Performed By: #### [id number] ## ## [facility],[address] [place] [address] 25700 bmp on 2020-01-21 Creatinine [Mass/Vol] 0.96 0.50-1.20 mg/dL Normal 01-21-20 20 [facility] ([place]) (61730) Comment: Performed By: #### CBC, ADIF F, ANEU, BMP, GFR #### [address] [address] Urea nitrogen/Creatinine 18.8 10.0-22.0 ratio Normal 01-20 [facility] [Mass ratio] [facility] ([place]) (98477) Comment: Performed By: #### CBC, ADIF F, ANEU, BMP, GFR #### [address] [address] Calcium [Mass/Vol] 8.7 8.4-10.1 mg/dL Normal 01-21-2020 [facility] ([place]) (0000 0) Comment: Performed By: #### CBC, ADIF F, ANEU, BMP, GFR #### [address] [address] Chloride [Moles/Vol] 108 98-110 mEq/L Normal 0 [facility] ([place]) (0000 0) Comment: Performed By: #### CBC, ADIF F, ANEU, BMP, GFR #### [address] [address] CO2 [Moles/Vol] 26 22-32 mEq/L Normal 01-21-2020 [facility] ([place]) (06400) Comment: Performed By: #### CBC, ADIF F, ANEU, BMP, GFR #### [place] [address] Electrolyte Balance 4.0 4.0-15.0 mEq/L Normal 01-21-2020 [facility] ([place]) (0000 0) Comment: Performed By: #### CBC, ADIF F, ANEU, BMP, GFR #### [place] [id number] Glucose [Mass/Vol] 85 70-110 mg/dL Normal 01-21-2020 [facility] ([place]) (41953) Comment: Performed By: #### CBC, ADIF F, ANEU, BMP, GFR #### [place] [address] Potassium [Moles/Vol] 4.1 3.5-5.0 mEq/L Normal 01-21-20 [facility]) (0000 0) Comment: Performed By: #### CBC, ADIF F, ANEU, BMP, GFR #### [place] [address] Sodium [Moles/Vol] 138 136-145 mEq/L Normal 01-21-2020 [facility] ([place]) (52170) Comment: Performed By: #### CBC, ADIF F, ANEU, BMP, GFR #### [place] [address] Urea nitrogen [Mass/Vol] 18.0 8.0-22.0 mg/dL Normal 01-20 [facility] ([place]) (16325) Comment: Performed By: #### CBC, ADIF F, ANEU, BMP, GFR #### [address] [address] .neuabs on Neutrophils (Bld) 3.50 2.25-8.10 10 3/mcL Normal 01-21-2020 [facility] [#/Vol] [facility] ([place]) (27100) Comment: Performed By: #### CBC, ADIF F, ANEU, BMP, GFR #### [address] [address] .gfr on 2020-01-21 GFR Non- >60 Normal 01-20 [facility] ([place]) (17723) Comment: Result Comment: GFR Population mean for Afri can Ecuadorean, Non- Americans Ages 20-29 = 116 mL/min/1.73 [...] CBC, ADIF F, ANEU, BMP, GFR #### [address] [address] GFR >60 Normal 0 [facility] ([place]) (25437) Comment: Result Comment: GFR Population mean for Afri can Ecuadorean, Non- Americans Ages 20-29 = 116 mL/min/1.73 [...] CBC, ADIF F, ANEU, BMP, GFR #### [address] [address] .auto diff on 01-20 Ammonia (P) [Mass/Vol] 0.40 0.09-1.40 10 3/mcL Normal 020 [facility] ([place]) (74526) Comment: Performed By: #### CBC, ADIF F, ANEU, BMP, GFR #### [address] [address] Basophils (Bld) 0.00 0.00-0.27 10 3/mcL Normal 01-21-2020 [facility] [#/Vol] [facility] ([place] (72830) Comment: Performed By: #### CBC, ADIF F, ANEU, BMP, GFR #### [address] [address] Basophils/100 WBC (Bld) 0.5 0.0-2.5 % Normal 2019 [facility] ([place]) (0000 0) Comment: Performed By: #### CBC, ADIF F, ANEU, BMP, GFR #### [address] [address] Eosinophils (Bld) 0.30 0.00-0.65 10 3/mcL Normal 01-21-2020 [facility] [#/Vol] [facility] ([place]) (45015) Comment: Performed By: #### CBC, ADIF F, ANEU, BMP, GFR #### [address] [address] Eosinophils/100 WBC (Bld) 5.4 0.0-6.0 % Normal [facility] ([place]) (0000 0) Comment: Performed By: #### CBC, ADIF F, ANEU, BMP, GFR #### [address] [address] Lymphocytes (Bld) 2.00 0.90-4.32 10 3/mcL Normal 01-21-2020 [facility] [#/Vol] [facility] ([place]) (70540) Comment: Performed By: #### CBC, ADIF F, ANEU, BMP, GFR #### [address] [address] Lymphocytes/100 WBC (Bld) 32.4 20.0-40.0 % Normal 05-0 [facility] ([place]) (95983) Comment: Performed By: #### CBC, ADIF F, ANEU, BMP, GFR #### [address] [address] Monocytes/100 WBC (Bld) 6.1 2.0-13.0 % Normal 2019 [facility] ([place]) (0000 0) Comment: Performed By: #### CBC, ADIF F, ANEU, BMP, GFR #### [facility] [address] [place] [address] Neutrophils/100 WBC (Bld) 55.6 50.0-75.0 % Normal 050 [facility] ([place]) (11729) Comment: Performed By: #### CBC, ADIF F, ANEU, BMP, GFR #### [facility] [address] [place] [address] 23039 cnpn on 2020-01-20 [facility] Normal 01-20-2020 [facility] SALLY MCGREGOR ([id number]) 1980 F [place] Date Time Provider Department (03862) 01/20/20 MARCELINO MEJIA [facility] During your visit today, we recorded the following informati on about you: Christopher Carcamo RN 01/20/2020 11:54 AM Signed Patient asking if Chaz Stroud, would sent AB Rx to [facility], for her bad tooth? Her dentist in [place] is not open. Has an appt with a dentist in [place] on . Has a wound on tongue [...] (METRONIDAZOLE HCL) 03/11/2010 12 - Shortness of [place] th IBUPROFEN 06/18/2016 8 - GI Upset [...] 01/20/20 progress on 2020-01 PROGRESS HNO ID: [id number] Normal 01-16-2020 [facility] Author: Isabel Mata ([id number]) Service: ? Author Type: Physician Senior Architect Type: Progress Notes Filed: 01/16/2020 1:43 PM [...] She c/o of daily. Attempted to call [facility] who had 1 visit with [...] testing. Recommend that she discuss with her conche operator. In mean time will order stress testing [...] on 2020-01-16 MORENA Telephone (FAMPWS) Normal 01-16-2020 [facility] SALLY MCGREGOR ([id number]) [address] [facility] Time Provider Department ([id number]) 01/16/20 ISABEL ARIAS) RAMA During your visit [...] and/or ibuprofen for pain. Follow-up with her [facility] care physician within the next [...] Chest pain This note was generated with [employer] dictation software. It m ay contain incorrect [...] (METRONIDAZOLE HCL) 03/11/2010 12 - Shortness of [place] th IBUPROFEN 06/18/2016 8 - GI Upset [...] Encounter Status:Closed by ISABEL WARE [facility] Normal 01-16-2020 [facility] SALLY MCGREGOR ([id number]) [address] [facility] Time Provider Department (53235) 01/16/20 ISABEL ARIAS) RAMA During your visit [...] (METRONIDAZOLE HCL) 03/11/2010 12 - Shortness of [place] th IBUPROFEN 06/18/2016 8 - GI Upset [...] on 2020-01-11 CNPN Telephone (FAMPWS) Normal 01-11-2020 [facility] SALLY MCGREGOR ([id number]) 1980 F [place] Date Time Provider Department (70475) 01/11/20 MARCELINO MEJIA During your visit today, [...] (METRONIDAZOLE HCL) 03/11/2010 12 - Shortness of [place] th IBUPROFEN 06/18/2016 8 - GI Upset PENICILLINS 12/07/2009 2 - Rash PREDNISONE 06/18/2016 14 - Other: See Comments Comments: makes agitated and mean Date Reviewed: 01/02/2020 Reviewed by: Ashley Lehman Ma - Fully Assessed Reason for Visit: Patient Question [9478] Reason For Visit History Recorded Prescriptions as [...] on 2020-01-09 CNPN Telephone (FAMPWS) Normal 01-09-2020 [facility] SALLY MCGREGOR ([id number]) 1980 [facility] Date Time Provider Department (70495) 01/09/20 ISABEL ARIAS) [facility] During your visit today, we recorded [...] when taken with s eroquel 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 See if she is willing to [...] by ISABEL WARE on 01/09/20 CNPN Telephone ([facility]) Normal 01-09-2020 [facility] SALLY MCGREGOR ([id number]) 1980 [facility] Date Time Provider Department (29534) 01/09/20 MARCELINO MEJIA During your visit today, [...] she called because she's not really thinking [facility]. Marcelino Mejia MD 01/09/2020 1:31 PM [...] flexeril. Monica t says she cannot take Gormania because she is on ok Seroquel and [...] dentist and she said no dentist in [facility] can see her because of her insurance . She tried [place] because they accepted her insurance but they [...] seen by ER or UC, [facility]/check for signs of [...] she has called every dentist office in [place] and now [place] and no one takes her insurance. She said she called her insurance and they told her the only one was the one in [place]. I told her if her infection is that bad she needs to go back to ER for further evaluation. Patient then just keep saying I have no way of getting there; no family can take her; she has no money to pay to get there. Patient ended call. I did call Dr. Evans's office oral surgeon [phone] and they are open from 8-3 after day to see patient's and [facility]. They were currently closed but wanting to find out if they accept her insurance. ISABEL ARIAS PA-C 01/10/2020 7:18 AM Signed Noted. Allergies As of Date: 01/09/2020 Noted Allergy Reaction ASA (SALICYLATES) 01/27/2011 14 - Other: See Comments Comments: ulcers CONTRAST DYE (IODINE) 05/17/2008 12 - Shortness of Breath FLAGYL (METRONIDAZOLE HCL) 03/11/2010 12 - Shortness of [place] th IBUPROFEN 06/18/2016 8 - GI Upset [...] * * *Final Report* * * Normal [facility] AP/LAT DATE OF EXAM: Jan 06 2020 12:58PM [place] ([id number]) WOX 5262 - XR THORACIC 2V AP/LAT / PROCEDURE REASON: Fall, initial encounter * * * * Physician Interpretation * * * * EXAM TITLE: XR THORACIC 2V AP/LAT DATE: 01/06/2020 COMPARISON: None. CLINICAL INDICATION/HISTORY: Back pain status post fall in [facility]. TECHNIQUE: AP and lateral views of the thoracic spine are pr esented. FINDINGS: No fractures or subluxations are noted. The disc spaces are well preserved. There is no paraspinal mass or delon destructive process. IMPRESSION: Negative thoracic spine. Stacker: PSCB Transcribe Date/Time: Jan 06 2020 1:02P Dictated by : NIDA VILLALOBOS MD This examination was interpreted and the report reviewed and electronically signed by: NIDA VILLALOBOS MD on Jan 06 2020 1:07PM EST [id number] xr cervical 3v ap/lat/odon on 2020-01-06 XR CERVICAL 3V * * *Final Report* * * Normal [facility] AP/LAT/ODON DATE OF EXAM: Jan 06 2020 12:58PM [place] WOX 5309 - XR CERVICAL 3V AP/LAT/ODON / 3 ([id number]) PROCEDURE REASON: Fall, initial encounter * * [...] tissues are normal. IMPRESSION: Negative cervical spine. Stacker: PSCB Transcribe Date/Time: Jan 06 2020 1:00P Dictated by : NIDA VILLALOBOS MD This examination was interpreted and the report reviewed and electronically signed by: NIDA VILLALOBOS MD on Jan 06 2020 1:04PM EST [id number] progress on 2019-12 PROGRESS HNO ID: [id number] Normal 01-06-2020 [facility] Author: Vianey Sanchez (Tech) [place] ([id number]) Service: ? Author Type: Plastic Molder Type: Progress Notes Filed: 01/06/2020 12:58 PM [...] 12:43 PM cnpn on 2020-01-06 [facility] Normal 01-06-2020 [place] [facility] SALLY MCGREGOR ([id number]) 1980 [facility] Date Time Provider Department ([id number]) 01/06/20 MARCELINO MEJIA During your visit today, we recorded the following informati on about you: Deepa Salvador, BRINEYARD SUPERVISOR, BRINEYARD SUPERVISOR 01/06/2020 11:41 AM Signed Pt calls states fell a day ago and went to [facility] they gave h er 10 vicodin, [...] encounter [W19.XXXA] Order(s):XR THORACIC LIMITED 2V AP/LAT [[id number]] Order #: [id number] FUTURE XR CERV INJURY 3V AP/LAT/ODON [[id number]] Order #: [id number] FUTURE Prescriptions as of 01/06/2020 Sig: SERTRALINE [...] Status:Closed by BRANDEN SANDERS MA on [facility]/06/[facility]) Normal 01-06-2020 [place] [facility] SALLY MCGREGOR ([id number]) 1980 [facility] Date Time Provider Department ([id number]) 01/06/20 MARCELINO MEJIA [facility] During your visit today, we recorded [...] (METRONIDAZOLE HCL) 03/11/2010 12 - Shortness of [place] th IBUPROFEN 06/18/2016 8 - GI Upset [...] 01/06/20 progress on 2019-12 PROGRESS HNO ID: [id number] Normal 01-05-2020 [facility] Author: Isabel Romero) Hugo Mata ([id number]) Service: ? Author Type: Physician Senior Architect Type: Progress Notes Filed: 01/05/2020 8:07 AM [...] to cancel due to no r kostas. [facility] has appointment rescheduled on january 19. [...] and recommend she keep f/u with Dr. Pian since it seems that h/a are linked to neck p ain. Could consider Physical Therapy but transportation is an iss ue. ISABEL ARIAS PA-C There are no Patient Instructions on file for this visit. ISABEL ARIAS PA-C Total appointment time on phone with patient = 11-20 minutes progress on 2019-12 PROGRESS HNO ID: [id number] Normal 01-02-2020 [facility] Author: Marie Mary) [facility] ([id number]) Service: ? Author Type: Nurse Practitioner Type: [...] Benign liver cyst 05/24/2010 CT scan at [facility] 11/2009 and 04/2010 showe 4 mm increase in size . No pain. No elevated LFTs on 03/11/2010. - Calculus of kidney 05/17/[address] Nicolas: Hospitalized age 20, and again later -- no procedures so far [facility]) - Dysmenorrhea - Impaired fasting glucose [...] Approx. 3 cigarettes daily-1 pack every w paimiut Substance Use Topics - Alcohol use: Yes [...] 2020-01-02 CNOV Office Visit ([facility]) Normal 01-02-20 [place] SALLY Martinez ([id number]) 1980 F [place] Date Time Provider Department ([id number]) 01/02/20 2:45 PM MARIE SANTAMARIA (JAKI) [facility] [...] Benign liver cyst 05/24/2010 CT scan at [facility] 11/2009 and 04/2010 showe 4 mm increase in size . No pain. No elevated LFTs on 03/11/2010. - Calculus of kidney 05/17/[address] Nicolas: Hospitalized age 20, a nd again later -- no procedures so far ([facility], [facility], 1995 [facility]) - Dysmenorrhea - Impaired fasting glucose [...] Approx. 3 cigarettes daily-1 pack every w paimiut Substance Use Topics - Alcohol use: Yes [...] MG CAPSULE Agrees to plan Marie Santamaria APRN.QUICK MIXER OPERATOR Referring Provider: SELF [[id number]] Allergies As of Date: 01/02/2020 Noted Allergy Reaction ASA (SALICYLATES) 01/27/2011 14 - Other: See Comments Comments: ulcers CONTRAST DYE (IODINE) 05/17/2008 12 - Shortness of Breath FLAGYL (METRONIDAZOLE HCL) 03/11/2010 12 - Shortness of [place] th IBUPROFEN 06/18/2016 8 - GI Upset [...] SANTAMARIA CNP on 01/02/20 cnpn on 2019-12-23 [facility]) Normal 12-23-2019 [place] [facility] SALLY MCGREGOR ([id number]) 1980 [facility] Date Time Provider Department ([id number]) 12/23/19 [facility] ARIAS) [facility] During your visit today, we recorded [...] not helping cough. Please advise and call [phone]. WENDI ARIAS PA-C 12/23/2019 1:02 PM Signed [...] * *Final Report* * * Normal 12-21 [facility] FRONTAL/LAT DATE OF EXAM: Dec 22 2019 9:28AM [place] WOX 5291 - XR CHEST 2V FRONTAL/LAT / ([id number]) PROCEDURE REASON: multiple diagnoses * * * [...] clips noted. IMPRESSION: No acute radiographic abnormality. Stacker: PSCB Transcribe Date/Time: Dec 22 2019 9:29A Dictated by : NIDA VILLALOBOS MD This examination was interpreted and the report reviewed and electronically signed by: NIDA VILLALOBOS MD on Dec 22 2019 9:51AM EST [id number] progress on 2019-12 PROGRESS HNO ID: [id number] Normal 12-22-2019 [facility] Author: Madeline Joyner (Rt) Vianey Luo Mata ([id number]) Service: ? Author Type: Plastic Molder Type: Progress Notes Filed: 12/22/2019 9:28 AM [...] 22, 2019 9:18 AM cnpn on 2019-12-22 [facility]) Normal 12-22-2019 [place] [facility] SALLY MCGREGOR ([id number]) 1980 [facility] Date Time Provider Department ([id number]) 12/22/19 ISABEL ARIAS) RAMA During your visit today, we recorded the following informati on about you: ISABEL ARIAS PA-C 12/22/2019 9:56 AM Signed Let patient know that xray is negative. Recommend cont inuing as we discussed yesterday. Isabel Arias PA-C Ashley Mcfarland Veneer Stapler 12/22/2019 10:42 AM Signed Patient notified and verbalized understanding Ashley Mcfarland Veneer Stapler Allergies As of Date: 12/22/2019 Noted Allergy Reaction ASA (SALICYLATES) 01/27/2011 14 - Other: See Comments Comments: ulcers CONTRAST DYE (IODINE) 05/17/2008 12 - Shortness of Breath FLAGYL (METRONIDAZOLE HCL) 03/11/2010 12 - Shortness of [place] th IBUPROFEN 06/18/2016 8 - GI Upset [...] 12/22/19 progress on 2019-12 PROGRESS HNO ID: [id number] Normal 12-21-2019 [facility] Author: Isabel Romero) Hugo Mata ([id number]) Service: ? Author Type: Physician Senior Architect Type: Progress Notes Filed: 12/21/2019 12:48 PM Note Text: DISTANCE HEALTH VISIT This Team Access Model visit is a phone encounter. It requir ed patient-provider interaction for the medical decision making as documented below. No video was used for evaluation of this patient. Patient consents to visit. Patient location: [place] Sally Mcgregor is a 39 year old [...] SYSTEMS: As noted in HPI PHYSICAL EXAMINATION: [facility] 08/10/2006 Deferred physical exam as visit [...] on 2019-12-15 CNPN Telephone ([facility]) Normal 12-15-2019 [place] [facility] SALLY MCGREGOR ([id number]) 1980 [facility] Date Time Provider Department (32832) 12/15/19 ISABEL ARIAS (MAYA) RAMA During your [...] and still makes her nauseated. Patient uses [facility] for her pharmacy. Please advise ISABEL ARIAS [...] on 2019-12-14 CNPN Telephone (INTMWS) Normal 12-14-2019 [place] [facility] SALLY MCGREGOR ([id number]) 1980 F [place] Date Time Provider Department (01981) 12/14/19 ISABEL ARIAS) INTMWS During your visit today, we recorded the following informati on about you: Gale Fuentes LPN 12/14/2019 10:15 AM Signed Patient took 1 dose of Robitussin AC, di d help suppress cough but developed an itchy/rash. Asking if something else can be called in to pha acy. Patient uses [facility]. Please notify Patient. Gale ARIAS PA-C 12/14/2019 [...] on 12/14/19 CNPN Telephone (FAMPWS) Normal 12-14-2019 [place] [facility] SALLY MCGREGOR ([id number]) 1980 [facility] Date Time Provider Department (13757) 12/14/19 ISABEL ARIAS) RAMA During your visit [...] 12/14/19 progress on 2019-11 PROGRESS HNO ID: [id number] Normal 12-13-2019 [facility] Author: Isabel Romero) Hugo Mata ([id number]) Service: ? Author Type: Physician Senior Architect Type: Progress Notes Filed: 12/13/2019 10:36 AM [...] Benign liver cyst 05/24/2010 CT scan at [facility] 11/2009 and 04/2010 showe 4 mm increase in size . No pain. No elevated LFTs on 03/11/2010. - Calculus of kidney 05/17/[address] Nicolas: Hospitalized age 20, and again later -- no procedures so far ([facility], [facility], 1995 [facility]) - Dysmenorrhea - Impaired fasting glucose [...] Approx. 3 cigarettes daily-1 pack every w paimiut Substance Use Topics - Alcohol use: Yes [...] (COVID-19). emergency report on 2019-11-26 EMERGENCY REPORT [facility] Normal 11-25 [facility] ospital EMERGENCY ROOM REPORT ([id number]) NAME ACCOUNT SEX AGE ADMIT DISCHARGE PT MED. RECORD# NUMBER DATE DATE TYPE SAM, [id number] F 39 11/24/19 11/25/19 3 SALLY [id number] ROOM: ER DATE OF : 1980 DICTATING [...] for review of her constipation regimen at [facility]. She verbalized understanding of the informa tion given and agreed to plan. She was discharged in stable condition. Dictated By: Aan Alcantar MD 11/25/19 05:37 JOB #: [id number] Transcribed By: dotty 11/25/19 22:11 Electronically signed by: Jennifer Perez MD 11/25/19 22:39 Page 2 of 2 SALLY MCGREGOR Emergency Room Report urinalysis with microscopy on 2019-11-25 Amorphous NONE Normal 11-25-2019 [facility] (14009) Comment: Performed By: #### [id number] ## ## [facility],[address] [place] [address] 90835 Bacteria LM.HPF (Urine sed) 4+ Normal [facility] [#/Area] [facility] ( 83045) Comment: Performed By: #### [id number] ## ## [facility],[address] [place] [address] 59945 Bilirubin [Mass/Vol] NEG NORMAL: NEGATIVE mg/dL Normal [facility] ospital (64548) Comment: Performed By: #### [id number] ## ## [facility],[address] [place] [address] 14315 Blood 10 NORMAL: NEGATIVE Abnormal 11-25-2019 [facility] (92575) Comment: Performed By: #### [id number] ## ## [facility],[address] [place], [place] [id number] Casts LM.LPF (Urine sed) NONE Normal 11-24 [facility] [#/Area] [facility] ( 44694) Comment: Performed By: #### [id number] ## ## [facility],[address] [place] [address] 79759 Clarity (U) sl.cloudy NORMAL: CLEAR Normal 11-25-2019 [facility] ( 09368) Comment: Performed By: #### [id number] ## ## [facility],[address] [place] [address] 01797 Color (U) p.yel NORMAL: YELLOW Normal 11-25-2019 [facility] (58785) Comment: Performed By: #### [id number] ## ## [facility],[address] [place] [address] 89018 Crystals LM Nom (Urine sed) NONE Normal [facility] ( 76301) Comment: Performed By: #### [id number] ## ## [facility],[address] [place] [address] 80202 Epi Cells MANY Normal 11-25-2019 [facility] (93011) Comment: Performed By: #### [id number] ## ## [facility] [address] Glucose [Mass/Vol] NORM NORMAL: NORMAL Normal 2019 [facility] ( 10016) Comment: Performed By: #### [id number] ## ## [facility],[address] [place] [address] 63013 Ketone NEG NORMAL: NEGATIVE Normal 11-25-2019 [facility] (07570) Comment: Performed By: #### [id number] ## ## [facility],[address] [place] [address] 43930 Mucous NONE Normal 11-25-2019 [facility] (85489) Comment: Performed By: #### [id number] ## ## [facility],[address] [place] [address] 97932 Nitrite Ql (U) NEG NORMAL: NEGATIVE Normal 11-25-19 20 [facility] ( 33368) Comment: Performed By: #### [id number] ## ## [facility],[address] [place] [address] 79545 pH (Bld) 5 NORMAL: 5.0-8.0 Normal 11-25-2019 [facility] (98386) Comment: Performed By: #### [id number] ## ## [facility],[address] [place] [address] 73610 Protein (U) NEG NORMAL: NEGATIVE mg/dL Normal 11-25-2019 [facility] [Mass/Vol] [facility] (24306) Comment: Performed By: #### [id number] ## ## [facility],[address] [facility] [place] [place] [address] Rbc 0-5 0-3 / hpf Normal 11-25-2019 [facility] (86379) Comment: Performed By: #### [id number] ## ## [facility],[address] [place], [place] [id number] Sp [place] 1.010 NORMAL: 1.010-1.030 Normal 0 [facility] ( 82704) Comment: Performed By: #### [id number] ## ## [facility],[address] [place] [address] Specimen type Nom (Spec) UNSPECIFIED Normal [facility] ( 40211) Comment: Performed By: #### [id number] ## ## [facility],[address] [place], [place] [address] URINALYSIS WITH MICROSCOPY Normal [facility] (26556) Comment: Result Comment: URINALYSIS Performed By: #### [id number] ## ## [facility],[address] [place] [address] Urobilinog NORM NORMAL: NORMAL Normal 11-25-2019 [facility] (89584) Comment: Performed By: #### [id number] ## ## [facility],[address] [place], [place] [id number] Wbc 1-5 0-5 / hpf Normal 11-25-2019 [facility] (05066) Comment: Performed By: #### [id number] ## ## [facility],[address] [place], [place] [id number] WBC (Bld) [#/Vol] 25 NORMAL: NEGATIVE Abnormal 11-24 [facility] ( 12278) Comment: Result Comment: URINE MICROS COPIC Performed By: #### [id number] ## ## [facility],[address] [place] [address] 38785 Yeast LM Ql (Urine sed) NONE Normal 2019 [facility] (21773) Comment: Performed By: #### [id number] ## ## [facility],[address] [place] [address] 40547 lipase on 2019-11-13 3 Lipase [Catalytic 34.0 18.0 - 51.0 U/L Normal 11-25-2019 [facility] activity/Vol] [facility] (52872) Comment: Performed By: #### [id number] ## ## [facility],[address] [facility] [address] lactate on Lactate [Moles/Vol] 0.9 0.5 - 2.0 mmol/L Normal 11-25-2019 [facility] ( 93367) Comment: Performed By: #### [id number] ## ## [facility],[address] [place] [address] abdomen/pelvis wo on 2019-11-25 CT ABDOMEN/PELVIS [facility] Normal 0 11-25-2019 [facility] ospital [address] [place], [place] [id number] (29396) Patient: SALLY MCGREGOR Phone#: : 1980 Age: 39 Gender: F Pt. Type: ER Account: [id number] Location: [facility] Ordering: DR. ANA ALCANTAR Exam Date: 11/25/2019/0:04 Family Phys: ISABEL ARIAS Charge Code: [id number] Physician: [place] Order #: [id number] DLP Dose#: PROCEDURE: CT ABDOMEN/PELVIS WITHOUT CONTRAST COMPARISON: [facility], CT, ABDOMEN/PELVIS W/O CON, 03/22/2019, 16:41. INDICATIONS: Abdominal Pain TECHNIQUE: CT images were created without intravenous contra st. All CT scans at this [facility] y use dose modulation, iterative [...] 39 Gender: F Pt. Type: ER Account: [id number] Location: 052 Ordering: DR. ANA ALCANTAR Exam Date: 11/25/2019/0:04 Family Phys: ISABEL ARIAS Charge Code: [id number] Physician: Fulton Order #: [id number] DLP Dose#: ABDOMINAL WALL: There is a [...] on 2019-11-25 CNPN Telephone (FAMPWS) Normal 11-25-2019 [place] [facility] TOSHIASALLY TORRES ([id number]) 1980 F [place] Date Time Provider Department (97468) 11/25/19 [facility] ARIAS[facility] During your visit today, we recorded [...] Age - Reported 39 years Normal 11-25-2019 [facility] (10166) Comment: Performed By: #### [id number] ## ## [facility],[address] [place] [address] 82247 Albumin [Mass/Vol] 4.5 3.4 - 4.8 g/dL Normal 11-25-2019 [facility] ( 91496) Comment: Performed By: #### [id number] ## ## [facility],[address] [place] [address] 11086 Albumin/Globulin [Mass 1.3 0.9 - 1.6 {ratio} Normal [address] [place] [address] (85483) Comment: Performed By: #### [id number] ## ## [facility],[address] [place] [address] 22438 ALK PHOS 93 38 - 126 U/L Normal 11-25-2019 [facility] (77188) Comment: Performed By: #### [id number] ## ## [facility],[address] [place] [address] 51437 ALT/SGPT 10 8 - 35 U/L Normal 11-25-2019 [facility] (44560) Comment: Performed By: #### [id number] ## ## [facility],[address] [place] [address] 91066 Anion gap [Moles/Vol] 13 10 - 20 mmol/L Normal 11-25-19 [facility] ( 06172) Comment: Performed By: #### [id number] ## ## [facility],[address] [place] [address] 64032 AST/SGOT 9 13 - 39 U/L Low 11-25-2019 [facility] (67024) Comment: Performed By: #### [id number] ## ## [facility],1 [facility] 43337 B/C RATIO 17 0 - 30 ratio Normal 11-25-2019 [facility] (89030) Comment: Performed By: #### [id number] ## ## [facility],[address] [facility] 6[address] Bilirubin [Mass/Vol] 0.4 0.0 - 1.5 mg/dl Normal 0 [facility] ( 20240) Comment: Performed By: #### [id number] ## ## [facility],[address] [place] [address] 18554 Calcium [Mass/Vol] 9.9 8.6 - 10.2 mg/dl Normal 11-25-2019 [facility] ( 07933) Comment: Performed By: #### [id number] ## ## [facility],[address] [facility] 78410 Chloride [Moles/Vol] 103 98 - 107 mmol/L Normal 0 [facility] ( 42873) Comment: Performed By: #### [id number] ## ## [facility],[address] [facility] [place] [place] [address] CO2 [Moles/Vol] 24.9 21.0 - 31.0 mmol/L Normal 11-25-2019 [facility] ( 17812) Comment: Performed By: #### [id number] ## ## [facility],[address] [place] [address] 26584 Creatinine [Mass/Vol] 1.0 0.6 - 1.2 mg/dl Normal 11-25-19 20 [facility] ( 39956) Comment: Performed By: #### [id number] ## ## [facility],[address] [place] [address] 73685 GFR/1.73 sq M >60 60 - 999 mL/min/{1.73_m2} Normal 0 [facility] predicted among [facility] non-blacks MDRD (000 00) (S/P/Bld) [Vol rate/Area] Comment: Performed By: #### [id number] ## ## [facility],[address] [place] [address] 36528 Result Comment: ACCORDING TO THE NATIONAL KIDNEY DISEASE EDUCATION PROGRAM(NKDE), A NORMAL eGFR IS A VALUE GREATER THAN OR E QUAL TO 60 ML/MIN/1.73 SQ METERS. CHRONIC KIDNEY DISEASE: <60m L/MIN/1.73 SQ METERS KIDNEY FAILURE: <15mL/MIN/1. 73 SQ METERS THIS TEST SHOULD ONLY BE USE D FOR PATIENTS 18 YEARS OF AGE AND OLDER. GFR/1.73 sq M predicted among Normal 11-25-2019 [facility] non-blacks MDRD (S/P/Bld) [Vol Hospital (90688) rate/Area] Comment: Result Comment: COMPREHENSIV E METABOLIC PANEL Performed By: #### [id number] ## ## [facility],[address] [place] [address] 86035 Globulin (S) [Mass/Vol] 3.5 1.5 - 3.8 G/DL Normal 2019 [facility] ( 78632) Comment: Performed By: #### [id number] ## ## [facility],[address] [place] [address] 14900 Glucose [Mass/Vol] 123 74 - 106 mg/dl High 11-25-2019 [facility] (32196) Comment: Performed By: #### [id number] ## ## [facility],[address] [place] [address] 97180 Potassium [Moles/Vol] 3.6 3.5 - 5.1 mmol/L Normal 11-25-19 20 [facility] ( 43783) Comment: Performed By: #### [id number] ## ## [facility],[address] [place] [address] 40054 Protein [Mass/Vol] 8.0 6.4 - 8.3 g/dl Normal 11-25-2019 [facility] ( 96696) Comment: Performed By: #### [id number] ## ## [facility],[address] [place] [address] 47037 Sodium [Moles/Vol] 137 136 - 145 mmol/l Normal 11-25-2019 [facility] ( 27847) Comment: Performed By: #### [id number] ## ## [facility],[address] [place] [address] 50467 Urea nitrogen [Mass/Vol] 17 6 - 20 mg/dl Normal 11-24 [facility] ( 41993) Comment: Performed By: #### [id number] ## ## [facility],[address] [place] [address] 66901 chest 2 views on 01-12-12 CHEST 2 VIEWS [facility] Normal 11-25-19 [facility] ospital [address] [place], [place] [id number] (49083) Patient: SALLY MCGREGOR Phone#: : 1980 Age: 39 Gender: F Pt. Type: ER Account: [id number] Location: [facility] Ordering: DR. ANA ALCANTAR Exam Date: 11/25/2019/0:08 Family Phys: ISABEL ARIAS Charge Code: [id number] Physician: Fulton Order #: [id number] DLP Dose#: PROCEDURE: X-RAY CHEST 2 VIEWS COMPARISON: [facility], XR, CHEST PA/LAT, 05/12/2017, 16:14. INDICATIONS: Cough [...] on 11-24 CELL COUNT 100 Normal 11-25-2019 [facility] (72269) Comment: Performed By: #### 680754 ## ## [facility],[address] [place] [address] 40366 EO 1.0 0.0 - 4.0 % Normal 11-25-2019 [facility] (62194) Comment: Performed By: #### [id number] ## ## [facility],[address] [place] [address] 46188 SEGS 59 50 - 70 % Normal 11-25-2019 [facility] (86059) Comment: Performed By: #### [id number] ## ## [facility],[address] [place] [address] 75260 CBC + DIFF Normal 11-25-2019 [facility] (49398) Comment: Result Comment: CBC-COMPLETE BLOOD COUNT Performed By: #### [id number] ## ## [facility],[address] [place] [address] 45729 Erythrocyte distribution 13.4 12.0 - 15.6 % Normal [facility] (RBC) [Ratio] [facility] (19150) Comment: Performed By: #### [id number] ## ## [facility],[address] [place] [address] 60951 Hematocrit (Bld) [Volume 32.5 34.0 - 46.0 % Low [facility]] [facility] ( 67179) Comment: Performed By: #### [id number] ## ## [facility],[address] [place] [address] 99184 Hemoglobin (Bld) 11.4 12.0 - 16.0 g/dl Low 11-25-2019 [facility] [Mass/Vol] Hospital (46925) Comment: Performed By: #### [id number] ## ## [facility],[address] [place] [address] 02589 Lymphocytes/100 WBC (Bld) 40 20 - 40 % Normal 11-12 [facility] ( 41445) Comment: Performed By: #### [id number] ## ## [facility],[address] [place] [address] 77562 MANUAL DIFF SEE BELOW Normal 11-25-2019 [facility] (54962) Comment: Performed By: #### 100894 ## ## [facility],[address] [place] [address] 26379 MCH (RBC) [Entitic mass] 31 27 - 33 pg Normal 11-24 [facility] ( 03116) Comment: Performed By: #### 137602 ## ## [facility],[address] [place] [address] 40884 MCHC (RBC) [Mass/Vol] 35 32 - 36 X10 3 Normal 11-25-19 20 [facility] ( 77964) Comment: Performed By: #### [id number] ## ## [facility],[address] [place] [address] 99437 MCV (RBC) [Entitic vol] 88 80 - 99 fl Normal 2019 [facility] ( 29331) Comment: Performed By: #### [id number] ## ## [facility],[address] [place] [address] 67723 Morphology Adrian (Bld) REVIEWED Normal 0 [facility] [Interp] [facility] ( 31961) Comment: Performed By: #### [id number] ## ## [facility],[address] [place] [address] 29441 Platelet mean volume 9.1 6.6 - 10.5 fl Normal 11-25-19 20 [facility] (Bld) [Entitic vol] [facility] (55624) Comment: Result Comment: AUTOMATED DI FFERENTIAL Performed By: #### [id number] ## ## [facility],[address] [place] [address] 25029 Platelets (Bld) 268 150 - 450 x10EE3/UL Normal 11-25-2019 [facility] [#/Vol] [facility] (89724) Comment: Performed By: #### [id number] ## ## [facility],[address] [place] [address] 21639 RBC (Bld) [#/Vol] 3.69 4.10 - 5.30 x 10EE6/UL Low 0 [facility] ( 89181) Comment: Performed By: #### [id number] ## ## [facility],[address] [place] [address] 41995 WBC (Bld) [#/Vol] 11.4 4.5 - 10.8 x 10EE3/UL High 11-25-2019 [facility] ( 94373) Comment: Performed By: #### [id number] ## ## [facility],[address] [place] [address] 33136 tsh on 2019-11-24 TSH Qn 3.920 0.270-4.200 uU/mL Normal 11-24-2019 [facility] (50030) Comment: Result Comment: If the patie nt [...] et al. 2017 Guide lines of the [place] Thyroid Association for the Diagnosis and Management of Thyroid Disease during and the . Thyroid, 2017:27:3:315-389. Performed By: #### TSH, CBCD IF, CMP ####[facility] [address] [place], [place] [address] [phone] troponin t on 11-23 Troponin T.cardiac Test sent to 0.000-0.029 Normal 2019 [facility] [Mass/Vol] [facility] (04804) [facility]. Comment: Result Comment: Account Cred ited HIDE progress on 2019-11 PROGRESS HNO ID: [id number] Normal 11-24-2019 [facility] Author: Jay) Hugo [place] ([id number]) Service: ? Author Type: Physician Senior Architect Type: Progress Notes Filed: 11/24/2019 9:33 AM [...] insurance and was forced to see a [facility] psychiatrist who isn't helping her. Only spoke with her twice. States she is in a lot of pain and trouble sleeping. States gabapentin used to work for her but when she lost her insurance. PAST MEDICAL HISTORY Diagnosis Date - Allergic rhinitis, cause unspecified 05/17/2008 Spring and summer - Benign liver cyst 05/24/2010 CT scan at [facility] 11/2009 and 04/2010 showe 4 mm increase in size . No pain. No elevated LFTs on 03/11/2010. - Calculus of kidney 05/17/[address] Nicolas: Hospitalized age 20, and again later -- no procedures so far [facility]) - Dysmenorrhea - Impaired fasting glucose [...] Approx. 3 cigarettes daily-1 pack every w paimiut Substance Use Topics - Alcohol use: Yes [...] dimer on D dimer Test sent to [facility] <500 Normal 0 [facility]. (85728) Comment: Result Comment: Account Cred ited HIDE comp metabolic panel on 2019-11-24 Albumin [Mass/Vol] 4.4 3.9-4.9 g/dL Normal 11-24-2019 [facility] (39761) Comment: Performed By: #### TSH, CBCD IF, CMP ####[facility] [address] [place] [address] [phone] ALP [Catalytic activity/Vol] 105 34-123 U/L Normal 0 11-24-2019 [facility] (70235) Comment: Performed By: #### TSH, CBCD IF, CMP ####[facility] [address] [place] [address] [phone] ALT [Catalytic activity/Vol] 6 7-38 U/L Low 0 11-24-2019 [facility] (55086) Comment: Performed By: #### TSH, CBCD IF, CMP ####[facility] [place] [address] [phone] Anion gap [Moles/Vol] 12 9-18 mmol/L Normal 11-24-19 20 [facility] (85790) Comment: Performed By: #### TSH, CBCD IF, CMP ####[place] [address] [place] [address] [phone] AST [Catalytic activity/Vol] 14 13-35 U/L Normal 0 11-24-2019 [facility] (71343) Comment: Performed By: #### TSH, CBCD IF, CMP ####[place] [address] [phone] Bilirubin [Mass/Vol] 0.4 0.2-1.3 mg/dL Normal 0 [facility] (58878) Comment: Performed By: #### TSH, CBCD IF, CMP ####[place] [address] [place] [address] [phone] Calcium [Mass/Vol] 9.9 8.5-10.2 mg/dL Normal 11-24-2019 [facility] (18427) Comment: Performed By: #### TSH, CBCD IF, CMP ####[facility] [place] [address] [phone] Chloride [Moles/Vol] 101 97-105 mmol/L Normal 0 [facility] (89802) Comment: Performed By: #### TSH, CBCD IF, CMP ####[place] [id number] [place] [address] [phone] CO2 [Moles/Vol] 23 22-30 mmol/L Normal 11-24-2019 [facility] (28317) Comment: Performed By: #### TSH, CBCD IF, CMP ####[facility] [address] [place] [address] [address] [phone] Creatinine [Mass/Vol] 0.93 0.58-0.96 mg/dL Normal 11-24-19 [facility] (59567) Comment: Performed By: #### TSH, CBCD IF, CMP ####[facility] [address] [place] [address] [address] [phone] eGFR- Amer. >60 Normal 11-24-2019 [facility] (56538) Comment: Performed By: #### TSH, CBCD IF, CMP ####[facility] [place] [address] [phone] GFR/1.73 sq M predicted >60 mL/min/{1.73_m2} Normal 11-24-2019 [facility] among non-blacks [facility] (60453) (S/P/Bld) [Vol rate/Area] Comment: Result Comment: eGFR [...] Performed By: #### TSH, CBCD IF, CMP ####[facility] [address] [place] [address] [phone] Glucose [Mass/Vol] 98 74-99 mg/dL Normal 11-24-2019 [facility] (93441) Comment: Result Comment: The [place] Diabetes Association (ADA) provides guidance for cutoff [...] for diagnosis of diabetes. Reference: Standards of [facility] Care in Diabetes 2016, [place] Diabetes Association. Diabetes Care. 2016.39(Suppl 1). Performed By: #### TSH, CBCD IF, CMP ####[facility] [place] [address] [phone] Potassium [Moles/Vol] 4.1 3.7-5.1 mmol/L Normal 11-24-19 [facility] (03539) Comment: Performed By: #### TSH, CBCD IF, CMP ####[place] [address] [phone] Protein [Mass/Vol] 7.6 6.3-8.0 g/dL Normal 11-24-2019 [facility] (00013) Comment: Performed By: #### TSH, CBCD IF, CMP ####[place] [address] [place] [address] [phone] Sodium [Moles/Vol] 136 136-144 mmol/L Normal 11-24-2019 [facility] (06477) Comment: Performed By: #### TSH, CBCD IF, CMP ####[place] [address] [phone] Urea nitrogen [Mass/Vol] 21 7-21 mg/dL Normal 11-23 [facility] (25749) Comment: Performed By: #### TSH, CBCD IF, CMP ####[place] [address] [phone] cnpn on 2019-11-24 CNPN Telephone (FAMPWS) Normal 11-24-2019 [place] [facility] SALLY MCGREGOR ([id number]) [address] [facility] Time Provider Department (28958) 11/24/19 MARCELINO MEJIA During your visit today, [...] is onl y under doctor for the [facility] states in the letter. Valente Bruce Ma' Allergies As of Date: 11/24/2019 Noted Allergy Reaction ASA (SALICYLATES) 01/27/2011 14 - Other: See Comments Comments: ulcers CONTRAST DYE (IODINE) 05/17/2008 12 - Shortness of Breath FLAGYL (METRONIDAZOLE HCL) 03/11/2010 12 - Shortness of [place] th IBUPROFEN 06/18/2016 8 - GI Upset [...] on 11/24/19 CNPN Telephone (FAMPWS) Normal 11-24-2019 [place] [facility] SALLY MCGREGOR ([id number]) 1980 [facility] Date Time Provider Department (24921) 11/24/19 [facility]AY ARIAS) [facility] During your visit today, we recorded the following informati on about you: Lorenzo Vu 11/24/2019 12:40 PM Signed 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 If so please fax to [employer] fax [phone]. ISABEL ARIAS PA-C 11/24/2019 1:00 PM Signed [...] on 11/24/19 CNPN Telephone (FAMPWS) Normal 11-24-2019 [place] [facility] SALLY MCGREGOR ([id number]) 1980 [facility] Date Time Provider Department (80154) 11/24/19 AMRCELINO MEJIA [facility] During your visit today, we recorded the following informati on about you: Yvette Huffman RN 11/24/2019 12:00 PM Signed Aidee from [facility] lab called, verified pt by name [...] (METRONIDAZOLE HCL) 03/11/2010 12 - Shortness of [place] th IBUPROFEN 06/18/2016 8 - GI Upset [...] 2019-11-24 CNOV Office Visit (FAMPWS) Normal 11-24-19 [place] [facility] SALLY MCGREGOR ([id number]) 1980 [facility] Date Time Provider Department (66726) 11/24/19 9:20 AM JAY ARIAS) FAMPWS During [...] Benign liver cyst 05/24/2010 CT scan at [facility] 11/2009 and 04/2010 showe 4 mm increase in size . No pain. No elevated LFTs on 03/11/2010. - Calculus of kidney 05/17/[address] Nicolas: Hospitalized age 20, a nd again later -- no procedures so far ([facility], [place], 1995 [facility]) - Dysmenorrhea - Impaired fasting glucose [...] Approx. 3 cigarettes daily-1 pack every w paimiut Substance Use Topics - Alcohol use: Yes [...] TO [facility] [[id number]] Order #: [id number]: 1 levoFLOXacin (LEVAQUIN) 500 mg tabletTake 1 [...] Abs Baso 0.06 <0.11 k/uL Normal 11-24-2019 [facility] (37965) Comment: Performed By: #### TSH, CBCD IF, CMP ####[place] [address] [place] [address] [place] [address] [phone] Abs Stevens 0.43 <0.87 k/uL Normal 11-24-2019 [facility] (49508) Comment: Performed By: #### TSH, CBCD IF, CMP ####[place] [address] [place] [address] [place] [address] [phone] Abs Neut 5.59 1.45-7.50 k/uL Normal 11-24-2019 [facility] (84890) Comment: Performed By: #### TSH, CBCD IF, CMP ####[place] [address] [place] [address] [address] [phone] Absolute nRBC <0.01 <0.01 Normal 11-24-2019 [facility] [place] [facility] (06561) Comment: Performed By: #### TSH, CBCD IF, CMP ####[place] [address] [place] [address] [place] [address] [phone] Basophils/100 WBC (Bld) 0.7 % Normal 2019 [facility] (60706) Comment: Performed By: #### TSH, CBCD IF, CMP ####[place] [address] [place] [address] [address] [phone] DTYPE Auto Diff Normal 11-24-2019 [facility] (18817) Comment: Performed By: #### TSH, CBCD IF, CMP ####[place] [address] [place] [address] [address] [phone] Eosinophils (Bld) [#/Vol] 0.34 <0.46 k/uL Normal 11-12 [facility] (27981) Comment: Performed By: #### TSH, CBCD IF, CMP ####[place] [address] [place] [address] [address] [phone] Eosinophils/100 WBC (Bld) 3.7 % Normal 11-12 [facility] (76041) Comment: Performed By: #### TSH, CBCD IF, CMP ####[facility] [place] [address] [place] [address] Erythrocyte distribution 13.1 11.5-15.0 % Normal 11-23 [facility] width (RBC) [Ratio] [place] (13356) Comment: Performed By: #### TSH, CBCD IF, CMP ####[facility] [address] [place] [address] [place] [address] [phone] Hematocrit (Bld) [Volume 38.1 36.0-46.0 % Normal 11-23 [facility] fraction] [place] (79773) Comment: Performed By: #### TSH, CBCD IF, CMP ####[facility] [place] [address] [place] [address] [phone] Hemoglobin (Bld) 11.7 11.5-15.5 g/dL Normal 11-24-2019 [facility] [Mass/Vol] [place] (75549) Comment: Performed By: #### TSH, CBCD IF, CMP ####[facility] [place] [address] [place] [address] [phone] Lymphocytes (Bld) [#/Vol] 2.69 1.00-4.00 k/uL Normal 11-12 [facility] (52608) Comment: Performed By: #### TSH, CBCD IF, CMP ####[facility] [address] [place] [address] [address] [phone] Lymphocytes/100 WBC (Bld) 29.5 % Normal 11-12 [facility] (94237) Comment: Performed By: #### TSH, CBCD IF, CMP ####[facility] [address] [place] [address] [address] [phone] MCH (RBC) [Entitic mass] 29.3 26.0-34.0 pG Normal 11-23 [facility] (88335) Comment: Performed By: #### TSH, CBCD IF, CMP ####[facility] [place] [address] [place] [address] [phone] MCHC (RBC) [Mass/Vol] 30.7 30.5-36.0 g/dL Normal 11-24-19 [facility] (31214) Comment: Performed By: #### TSH, CBCD IF, CMP ####[place] [address] [place] [address] [address] [phone] MCV (RBC) [Entitic vol] 95.3 80.0-100.0 fL Normal 11-23 [facility] (22575) Comment: Performed By: #### TSH, CBCD IF, CMP ####[place] [address] [place] [address] [address] [phone] Monocytes/100 WBC (Bld) 4.7 % Normal 2019 [facility] (31866) Comment: Performed By: #### TSH, CBCD IF, CMP ####[place] [address] [place] [address] [place] [address] [phone] Neutrophils/100 WBC (Bld) 61.4 % Normal 11-12 [facility] (08792) Comment: Result Comment: Differential confirmed by visual scan of peripheral blood smear slide. Performed By: #### TSH, CBCD IF, CMP ####[place] [address] [place] [address] [address] [phone] NRBCs 0.0 0 /100 WBC Normal 11-24-2019 [facility] (63736) Comment: Performed By: #### TSH, CBCD IF, CMP ####[place] [address] [place] [address] [address] [phone] Platelet mean volume 11.4 9.0-12.7 fL Normal 0 [facility] (Bld) [Entitic vol] [place] (83862) Comment: Performed By: #### TSH, CBCD IF, CMP ####[facility] [place] [address] [phone] Platelets (Bld) [#/Vol] 248 150-400 k/uL Normal 2019 [facility] (85984) Comment: Performed By: #### TSH, CBCD IF, CMP ####[facility] [place] [address] [phone] RBC (Bld) [#/Vol] 4.00 3.90-5.20 m/uL Normal 11-24-2019 C [facility] (49575) Comment: Performed By: #### TSH, CBCD IF, CMP ####[place] [address] [place] [address] [phone] WBC (Bld) [#/Vol] 9.11 3.70-11.00 k/uL Normal 11-24-2019 [facility] (77441) Comment: Performed By: #### TSH, CBCD IF, CMP ####[place] [address] [place] [address] [phone] cnpn on 2019-11-21 [facility] Normal 11-21-2019 [place] [facility] SALLY MCGREGOR ([id number]) 1980 [facility] Date Time Provider Department (57669) 11/21/19 M[facility]INO [facility]JIA [facility] During your visit today, we recorded [...] Status:Closed by VALENTE BRUCE MA on 11/23/19 adams-nervine asylumn on 2019-11-19 [facility] Telephone (FAMPWS) Normal 11-19-2019 [place] [facility] SALLY MCGREGOR ([id number]) 1980 [facility] Date Time Provider Department (78949) 11/19/19 JC FELIX [facility] During your visit today, we recorded [...] 11/21/2019 11:15 AM Signed Pt seen in [facility] ER on 11/19/19. Janneth Zhou, RN, [...] (METRONIDAZOLE HCL) 03/11/2010 12 - Shortness of [place] th IBUPROFEN 06/18/2016 8 - GI Upset PENICILLINS 12/07/2009 2 - Rash PREDNISONE 06/18/2016 14 - Other: See Comments Comments: makes agitated and mean Date Reviewed: 11/18/2019 Reviewed by: Valente Bruce Ma - Fully Assessed Reason for Visit: Question [1503] Patient Update [6934] Reason For Visit History Recorded Prescriptions as [...] * *Final Report* * * Normal 11-17 [facility] FRONTAL/LAT DATE OF EXAM: Nov 18 2019 12:48PM [place] WOX 5291 - XR CHEST 2V FRONTAL/LAT / (91125) PROCEDURE REASON: multiple diagnoses * * * [...] tissues: Unremarkable. IMPRESSION: No acute radiographic abnormality. Stacker: PSCB Transcribe Date/Time: Nov 18 2019 1:01P Dictated by : KORI BLANKENSHIP MD This examination was interpreted and the report reviewed and electronically signed by: KORI BLANKENSHIP MD on Nov 18 2019 1:02PM EST [id number] progress on 2019-11 PROGRESS HNO ID: [id number] Normal 11-18-2019 [facility] Author: Kylee PickardRtVianey Lea [place] ([id number]) Service: ? Author Type: Plastic Molder Type: Progress Notes Filed: 11/18/2019 12:49 PM [...] 18, 2019 12:40 PM PROGRESS HNO ID: [id number] Normal 11-18-2019 [facility] Author: Randi Arias [place] ([id number]) Service: ? Author Type: Physician Senior Architect Type: Progress Notes Filed: 11/18/2019 3:32 PM [...] Benign liver cyst 05/24/2010 CT scan at [facility] 11/2009 and 04/2010 showe 4 mm increase in size . No pain. No elevated LFTs on 03/11/2010. - Calculus of kidney 05/17/[address] Nicolas: Hospitalized age 20, and again later -- no procedures so far ([facility]) - Dysmenorrhea - Impaired fasting glucose [...] removed - TOTAL ABDOM HYSTERECTOMY 08/31/06 Hysterectomy, [facility] Family History FAMILY HISTORY Problem Relation [...] Approx. 3 cigarettes daily-1 pack every w paimiut Substance Use Topics - Alcohol use: Yes [...] NAME : SALLY MCGREGOR Normal 11-17-2 020 [facility] PID : [id number] Sina boyd ([id number]) : 1980 Gender : Female Race : [...] ms QTC Calculation(Bazett) : 453 ms P [place] : 51 degrees R Ohl[place] : -43 degrees T [place] : 6 degrees Test Reason : Location : 185 : [facility] Overread By : RUBEN GALVIN D.O. Edited By : RUBEN GALVIN D.O. Referred By : JAY ARIAS) Acquired by : morena MURRIETA on 2019-11-18 [facility]) Normal 11-18-2019 [place] [facility] SALLY MCGREGOR ([id number]) [address] [facility] Time Provider Department (70330) 11/18/19 JAY ARIAS) [facility] During your visit today, we recorded the following informati on about you: Lorenzohanna Vu 11/18/2019 2:14 PM Addendum [facility] / [facility] calls with results of d-dimer 1.10 [...] cnov on 2019-11-18 CNOV Office Visit (FAMPWS) [place] 11-18-[address] [place] [address] Debra SALLY MCGREGOR ([id number]) [address] [facility] Time Provider Department (84664) 11/18/19 12:20 PM [facility] ARIAS) [facility] During your visit today, we recorded [...] Benign liver cyst 05/24/2010 CT scan at [facility] 11/2009 and 04/2010 showe 4 mm increase in size . No pain. No elevated LFTs on 03/11/2010. - Calculus of kidney 05/17/[address] Nicolas: Hospitalized age 20, a nd again later -- no procedures so far ([facility], [facility], 1995 [facility]) - Dysmenorrhea - Impaired fasting glucose [...] removed - TOTAL ABDOM HYSTERECTOMY 08/31/06 Hysterectomy, [facility] Family History FAMILY HISTORY Problem Relation [...] Approx. 3 cigarettes daily-1 pack every w paimiut Substance Use Topics - Alcohol use: Yes [...] Order(s):CONSULT TO PAIN MGT [19991220] Order #: [id number] : 1 FUTURE CBC + DIFF [SQCBCDIF] Order #: [id number] FUTURE COMP METABOLIC PANEL [SQCMP] Order #: [id number] FUTURE D-DIMER [SQDDMER] Order #: [id number] FUTURE TSH BLD [SQTSH] Order #: [id number] FUTURE CONSULT TO CARDIOLOGY [900] Order #: [id number]: 1 FUTUR E XR CHEST 2V FRONTAL/LAT [3153118] Order #: [id number] FUTURE TROPONIN T [SQTNT] Order #: [id number] FUTURE Prescriptions as of 11/18/2019 Sig: AMITRIPTYLINE [...] 11/18/19 emergency report on 2019-11-03 EMERGENCY REPORT [facility] Normal 11-03 [facility] ospital EMERGENCY ROOM REPORT (64041) NAME ACCOUNT SEX AGE ADMIT DISCHARGE PT MED. RECORD# NUMBER DATE DATE TYPE SAM [id number] F 39 10/31/19 10/31/19 3 SALLY [id number] ROOM: ER DATE OF : 1980 DICTATING [...] try contacting Dr. Kyle hernandez through the [employer]. We will dispense her 2 Percocet to go home. I did r eview her OARRS, and she will be discharged in stable condition. Page 1 of 2 SALLY MCGREGOR Emergency Room Report SALLY MCGREGOR : 1980 Dictated By: Nikhil Lord DO 10/31/19 18:03 JOB #: [id number] Transcribed By: am 11/01/19 14:42 Electronically signed by: JC Lord D.O. 11/03/19 07:04 Page 2 of 2 SALLY MCGREGOR Emergency Room Report urinalysis on 10-31 Calcium Ox 1+ NORMAL: NONE Normal 10-31-2019 [facility] (38751) Comment: Performed By: #### [id number] ## ## [facility] Hospi natty,[address] [facility] [address] Amorphous TRACE Normal 10-31-2019 [facility] (49004) Comment: Performed By: #### [id number] ## ## [facility] [facility],[place] [address] Bacteria LM.HPF (Urine sed) TRACE Normal [facility] [#/Area] [facility] ( 18051) Comment: Performed By: #### [id number] ## ## [facility],[address] [facility] [address] Bilirubin [Mass/Vol] NEG NORMAL: NEGATIVE mg/dL Normal [facility] ospital (25241) Comment: Performed By: #### [id number] ## ## [facility],[address] [facility] [address] Blood 25 NORMAL: NEGATIVE Abnormal 10-31-2019 [facility] (49108) Comment: Performed By: #### [id number] ## ## [facility],[address] [facility] [address] Casts LM.LPF (Urine sed) NONE Normal 10-31 [facility] [/Area] [facility] ( 49326) Comment: Performed By: #### [id number] ## ## [facility],[address] [facility] [address] Clarity (U) clear NORMAL: CLEAR Normal 10-31-2019 [facility] (34842) Comment: Performed By: #### [id number] ## ## [facility],[address] [facility] [address] Color (U) yellow NORMAL: YELLOW Normal 10-31-2019 [facility] (44374) Comment: Performed By: #### [id number] ## ## [facility] [facility] [address] Crystals LM Nom (Urine sed) SEE BELOW Normal [facility] ( 40510) Comment: Performed By: #### [id number] ## ## [facility],[address] [place] [address]687 Epi Cells MANY Normal 10-31-2019 [facility] (01266) Comment: Performed By: #### [id number] ## ## [facility],[address] [place] [address]8714 Glucose [Mass/Vol] NORM NORMAL: NORMAL Normal 2019 [facility] ( 87079) Comment: Performed By: #### [id number] ## ## [facility],[address] [place] [address]191 Ketone NEG NORMAL: NEGATIVE Normal 10-31-2019 [facility] (97405) Comment: Performed By: #### [id number] ## ## [facility],[address] [place] [address]75 Microscopic SEE BELOW Normal 10-31-2019 [facility] (20681) Comment: Result Comment: MICROSCOPIC Performed By: #### [id number] ## ## [facility],[address] [place] [address]156 Mucous NONE Normal 10-31-2019 [facility] (55738) Comment: Performed By: #### [id number] ## ## [facility] [facility],[address] [place] [address] 12619 Nitrite Ql (U) NEG NORMAL: NEGATIVE Normal 10-31-19 20 [facility] ( 93432) Comment: Performed By: #### [id number] ## ## [facility],[address] [place] [address] 24363 pH (Bld) 5 NORMAL: 5.0-8.0 Normal 10-31-2019 [facility] (79362) Comment: Performed By: #### [id number] ## ## [facility],[address] [place] [address] 25064 Protein (U) NEG NORMAL: NEGATIVE mg/dL Normal 10-31-2019 [facility] [Mass/Vol] [facility] (57497) Comment: Performed By: #### [id number] ## ## [facility],[address] [place] [address] 63081 Rbc 0-5 0-3/hpf Normal 10-31-2019 [facility] (55810) Comment: Performed By: #### [id number] ## ## [facility],[address] [place], [place] [id number] Sp [place] 1.030 NORMAL: 1.010-1.030 Normal 0 [facility] ( 53621) Comment: Performed By: #### [id number] ## ## [facility],[address] [place], [place] [id number] Specimen type Nom (Spec) UNSPECIFIED Normal [facility] ( 75662) Comment: Performed By: #### [id number] ## ## [facility],[address] [place], [place] [id number] Urobilinog NORM NORMAL: NORMAL Normal 10-31-2019 [facility] (48576) Comment: Performed By: #### [id number] ## ## [facility],[address] [place] [address] 32246 Wbc 1-5 0-5/hpf Normal 10-31-2019 [facility] (34806) Comment: Performed By: #### [id number] ## ## [facility],[address] [place] [address] 83694 WBC (Bld) [#/Vol] 25 NORMAL: NEGATIVE Abnormal 10-31 [facility] ( 48977) Comment: Performed By: #### [id number] ## ## [facility],[address] [place] [address] 19639 Yeast LM Ql (Urine sed) NONE Normal 2019 [facility] (00215) Comment: Performed By: #### [id number] ## ## [facility],981 [facility] 95668 lipase on 2019-10-15 7 Lipase [Catalytic 40.0 18.0 - 51.0 U/L Normal 10-31-2019 [facility] activity/Vol] [facility] (82295) Comment: Performed By: #### [id number] ## ## [facility],9[address] [facility] 13102 cmp with egfr on 03-11-16 Age - Reported 39 years Normal 10-31-2019 [facility] (78224) Comment: Performed By: #### [id number] ## ## [facility],[address] [place] [address] 82327 Albumin [Mass/Vol] 4.4 3.4 - 4.8 g/dL Normal 10-31-2019 [facility] ( 80719) Comment: Performed By: #### [id number] ## ## [facility],[address] [place] [address] 42771 Albumin/Globulin [Mass 1.3 0.9 - 1.6 {ratio} Normal 020 [facility]] [facility] (18361) Comment: Performed By: #### [id number] ## ## [facility],1 [facility] 55512 ALK PHOS 79 38 - 126 U/L Normal 10-31-2019 [facility] (11326) Comment: Performed By: #### [id number] ## ## [facility],1 [facility] 96689 ALT/SGPT 12 8 - 35 U/L Normal 10-31-2019 [facility] (35785) Comment: Performed By: #### [id number] ## ## [facility],1 [facility] 76049 Anion gap [Moles/Vol] 12 10 - 20 mmol/L Normal 10-31-19 [facility] ( 92531) Comment: Performed By: #### [id number] ## ## [facility],[address] [facility] 83740 AST/SGOT 13 13 - 39 U/L Normal 10-31-2019 [facility] (37977) Comment: Performed By: #### [id number] ## ## [facility],981 [facility] [address] B/C RATIO 18 0 - 30 ratio Normal 10-31-2019 [facility] (03772) Comment: Performed By: #### [id number] ## ## [facility],9[address] [facility] 27240 Bilirubin [Mass/Vol] 0.4 0.0 - 1.5 mg/dl Normal 0 [facility] ( 36796) Comment: Performed By: #### [id number] ## ## [facility],[address] [facility] [place] [place] [address] Calcium [Mass/Vol] 9.6 8.6 - 10.2 mg/dl Normal 10-31-2019 [facility] ( 07996) Comment: Performed By: #### [id number] ## ## [facility],[address] [facility] [place] [place] [address] Chloride [Moles/Vol] 103 98 - 107 mmol/L Normal 0 [facility] ( 53488) Comment: Performed By: #### [id number] ## ## [facility],[address] [facility] [place] [place] [address] CO2 [Moles/Vol] 25.8 21.0 - 31.0 mmol/L Normal 10-31-2019 [facility] ( 92544) Comment: Performed By: #### [id number] ## ## [facility],[address] [facility] [place] [address] Creatinine [Mass/Vol] 1.0 0.6 - 1.2 mg/dl Normal 10-31-19 20 [facility] ( 80043) Comment: Performed By: #### [id number] ## ## [facility],[address] [place] [address] 46521 GFR/1.73 sq M predicted among Normal 10-31-2019 [facility] non-blacks MDRD (S/P/Bld) [Vol Hospital (63369) rate/Area] Comment: Result Comment: COMPREHENSIV E METABOLIC PANEL Performed By: #### [id number] ## ## [facility],[address] [place] [address] 45547 GFR/1.73 sq M >60 60 - 999 mL/min/{1.73_m2} Normal 0 [facility] predicted among [facility] non-blacks MDRD (000 00) (S/P/Bld) [Vol [...] OF AGE AND OLDER. Performed By: #### [id number] ## ## [facility],[address] [place] [address] 15872 Globulin (S) [Mass/Vol] 3.3 1.5 - 3.8 G/DL Normal 2019 [facility] ( 60380) Comment: Performed By: #### [id number] ## ## [facility],[address] [place] [address] 40434 Glucose [Mass/Vol] 96 74 - 106 mg/dl Normal 10-31-2019 [facility] ( 32569) Comment: Performed By: #### [id number] ## ## [facility],[address] [place] [address] 83797 Potassium [Moles/Vol] 3.9 3.5 - 5.1 mmol/L Normal 10-31-19 [facility] ( 44907) Comment: Performed By: #### [id number] ## ## [facility],[address] [place] [address] 66568 Protein [Mass/Vol] 7.7 6.4 - 8.3 g/dl Normal 10-31-2019 [facility] ( 05569) Comment: Performed By: #### [id number] ## ## [facility],[address] [place] [address] 32723 Sodium [Moles/Vol] 137 136 - 145 mmol/l Normal 10-31-2019 [facility] ( 09168) Comment: Performed By: #### [id number] ## ## [facility],[address] [place] [address] 60655 Urea nitrogen [Mass/Vol] 18 6 - 20 mg/dl Normal 10-31 [facility] ( 45494) Comment: Performed By: #### [id number] ## ## [facility],[address] [place] [address] 16549 cbc + diff on 10-31 Basophils (Bld) 0.20 0.00 - 0.10 x10EE3/UL High 10-31-2019 [facility] hospital [#/Vol] [facility] (78886) Comment: Performed By: #### [id number] ## ## [facility],[address] [place] [address] 29890 Basophils/100 WBC (Bld) 2.0 0.0 - 2.0 % Normal 2019 [facility] ( 25547) Comment: Performed By: #### [id number] ## ## [facility],[address] [place] [address] 95815 CBC + DIFF Normal 10-31-2019 [facility] (36332) Comment: Result Comment: CBC-COMPLETE BLOOD COUNT Performed By: #### [id number] ## ## [facility],[address] [place] [address] 12759 Eosinophils (Bld) 0.40 0.00 - 0.50 x10EE3/UL Normal 10-31-2019 [facility] [#/Vol] [facility] (75364) Comment: Performed By: #### [id number] ## ## [facility],[address] [place] [address] 69372 Eosinophils/100 WBC (Bld) 4.8 0.0 - 7.0 % Normal 10-15 [facility] ( 66396) Comment: Performed By: #### [id number] ## ## [facility],[address] [place] [address] 06069 Erythrocyte distribution 13.7 12.0 - 15.6 % Normal [facility] (RBC) [Ratio] [facility] (42606) Comment: Performed By: #### [id number] ## ## [facility],[address] [place] [address] 25726 Hematocrit (Bld) [Volume 35.8 34.0 - 46.0 % Normal [facility] ( 29431) Comment: Performed By: #### [id number] ## ## [facility],[address] [place] [address] 59443 Hemoglobin (Bld) 12.3 12.0 - 16.0 g/dl Normal 10-31-2019 [facility] [Mass/Vol] [facility] (10107) Comment: Performed By: #### [id number] ## ## [facility],[address] [place] [address] 27593 Lymphocytes (Bld) 2.70 0.80 - 2.80 x10EE3/UL Normal 10-31-2019 [facility] [#/Vol] [facility] (44236) Comment: Performed By: #### [id number] ## ## [facility],[address] [place] [address] 98526 Lymphocytes/100 WBC (Bld) 30.3 20.0 - 45.0 % Normal [facility] ( 94497) Comment: Performed By: #### [id number] ## ## [facility],[address] [place] [address] 32270 MANUAL DIFF N/A Normal 10-31-2019 [facility] (95822) Comment: Performed By: #### [id number] ## ## [facility],[address] [place] [address] 17085 MCH (RBC) [Entitic mass] 30 27 - 33 pg Normal 10-31 [facility] ( 04365) Comment: Performed By: #### [id number] ## ## [facility],[address] [place] [address] 54123 MCHC (RBC) [Mass/Vol] 34 32 - 36 X10 3 Normal 10-31-19 20 [facility] ( 18628) Comment: Performed By: #### [id number] ## ## [facility],[address] [place] [address] 80957 MCV (RBC) [Entitic vol] 88 80 - 99 fl Normal 2019 [facility] ( 03082) Comment: Performed By: #### [id number] ## ## [facility],[address] [place] [address] 55474 Monocytes (Bld) 0.50 0.20 - 1.00 x10EE3/UL Normal 10-31-2019 Critical access hospital [#/Vol] [facility] (95307) Comment: Performed By: #### [id number] ## ## [facility],[address] [place] [address] 74624 MONOS % 5.4 0.0 - 10.0 % Normal 10-31-2019 [facility] (15737) Comment: Performed By: #### [id number] ## ## [facility],[address] [place] [address] 28327 Morphology [place] (Bld) [Interp] N/A Normal 10-31-2019 [facility] ( 84177) Comment: Performed By: #### [id number] ## ## [facility],[address] [place] [address] 63591 Neutrophils (Bld) 5.10 1.50 - 7.10 x10EE3/UL Normal 10-31-2019 [facility] [#/Vol] [facility] (29301) Comment: Performed By: #### [id number] ## ## [facility],[address] [place] [address] 98533 Neutrophils/100 WBC (Bld) 57.5 46.0 - 76.0 % Normal [facility] ( 79789) Comment: Performed By: #### [id number] ## ## [facility],[address] [place] [address] 06788 Platelet mean volume 8.9 6.6 - 10.5 fl Normal 10-31-19 20 [facility] (d) [Entitic vol] [facility] (54516) Comment: Result Comment: AUTOMATED DI FFERENTIAL Performed By: #### [id number] ## ## [facility],[address] [place] [address] 58606 Platelets (Bld) 280 150 - 450 x10EE3/UL Normal 10-31-2019 [facility] [#/Vol] [facility] (71086) Comment: Performed By: #### [id number] ## ## [facility],[address] [place] [address] 09012 RBC (Bld) [#/Vol] 4.06 4.10 - 5.30 x 10EE6/UL Low 0 [facility] ( 78583) Comment: Performed By: #### [id number] ## ## [facility],[address] [place] [address] 78449 WBC (Bld) [#/Vol] 8.8 4.5 - 10.8 x 10EE3/UL Normal 10-31-2019 [facility] ( 18492) Comment: Performed By: #### [id number] ## ## [facility] [facility] 40280 hemogram on 2019-09 Erythrocyte distribution 13.6 11.5-14.5 % Normal 10-08 [facility] width (RBC) [Ratio] (44756) Comment: Performed By: #### BMP3M, MG 3, HEMOG #### [facility] [address] [place], [place] Hematocrit (Bld) [Volume 33.3 35.0-47.0 % Low 10-08 [facility] fraction] (74408) Comment: Performed By: #### BMP3M, MG 3, HEMOG #### [facility] [address], [place] Hemoglobin (Bld) [Mass/Vol] 11.3 11.7-16.0 g/dL Low [facility] (98186) Comment: Performed By: #### BMP3M, MG 3, HEMOG #### [facility] [address], [place] MCH (RBC) [Entitic mass] 30.4 26.0-34.0 pg Normal 10-08 [facility] (58957) Comment: Performed By: #### BMP3M, MG 3, HEMOG #### [facility] [address] [place], [place] MCHC (RBC) [Mass/Vol] 33.9 32.0-36.0 % Normal 10-08-19 [facility] (72302) Comment: Performed By: #### BMP3M, MG 3, HEMOG #### [facility] [address] [place], [place] MCV (RBC) [Entitic vol] 89.9 79.0-98.0 fL Normal 2019 [facility] (99013) Comment: Performed By: #### BMP3M, MG 3, HEMOG #### [place] [address] [address] [place], [place] Platelet mean volume (Bld) 9.5 7.4-10.4 fL Normal [facility] [Entitic vol] (70003 ) Comment: Performed By: #### BMP3M, MG 3, HEMOG #### [facility] [address] [place], [place] Platelets (Bld) [#/Vol] 240 140-440 10*3/uL Normal 2019 [facility] (58599) Comment: Performed By: #### BMP3M, MG 3, HEMOG #### [facility] [address] [place], [place] RBC (Bld) [#/Vol] 3.70 3.80-5.20 10*6/uL Low 10-08-2019 [facility] (96706) Comment: Performed By: #### BMP3M, MG 3, HEMOG #### [place] [address] [address] [place], [place] WBC (Bld) [#/Vol] 18.5 3.6-10.7 10*3/uL High 10-08-2019 [facility] (79205) Comment: Performed By: #### BMP3M, MG 3, HEMOG #### [facility] [address], [place] ts gel on 2019-09-15 4 TS GEL ABO Group: Normal 10-07-2019 [facility] (25873) O Rh, Gel: POS Antibody Screen Gel: NEG Comment: Performed By: #### BMP3M, MG 3, HEMOG #### [facility] [address] [place], [place] surgical pathology on 2019-10-07 Surgical [id number] Normal 10-07-2019 [facility] Pathology [facility] DEPARTMENT OF [facility] System PATHOLOGY AND (32282 ) LABORATORY MEDICINE [address] [place] [address] FINAL SURGICAL PATHOLOGY REPORT NAME: SALLY MCGREGOR : 1980 39 Y Donato CRISTOBAL NO.: [id number] LOCATION: I 5117 01 PROCEDURE 10/07/2019 DATE: [...] by the clinical labor atories of [facility]. They have not been cleared by the [facility] [place] [place] od and Drug Administration (FDA). The FDA [...] Results should be interpreted with caution given [facility] raised possibility of false negativity on decalcified specimens. Professional Performing Location: [address] [address]. DEPARTMENT OF PATHOLOGY AND LABORATORY MEDICINE [place], [place] [address] op note on Op Note PATIENT: SALLY MCGREGOR - [facility] ([id number]) ADMISSION DATE: 10/07/2019 SURGERY DATE: 10/07/2019 DATE [...] mass from a prior exam done in [facility] office. She underwent abdominal prep and drape [...] with a minimal EBL. [employer] Job ID: [id number] Delon Palacios MD DOD:10/07/2019 10:46 A /semaj DOT:10/07/2019 12:51 P Job Number: [id number] Document Number: [id number] cc: Delon Palacios MD [employer] [facility] [address] Lui Harris MD [address] [place] [address], [address] [facility] [address] follicle stim hormone on 2019-09-15 Follicle Stim Hormone 6.5 m[IU]/mL Normal 09-15-19 [facility] (76176) Comment: Result Comment: Females: Follicular Phase ...... 2.3- 12.6 Mid-cycle Peak ........ 5.2- 17.5 Luteal Phase .......... 1.7- 12.9 Post-menopausal ....... 12.7 -132.2 Males: 0.7-10.8 Performed By: #### FSH3 #### [facility] [address] [place] [address] us pelvis ta/tv on 2019-09-11 US Pelvis TA/TV Patient Name: ASLLY MCGREGOR 09-11-2019 [facility] ([id number] ) Ultrasound Exam Date/Time 09/11/2019 14:17:16 EST Exam US Pelvis TA/TV Ordering Physician MARLA ARNDT REBECCA E. Accession Number [id number] CPT4 Codes 19130 (US Pelvis TA/TV), 33430 (US Transvaginal) Reason For Exam right ovarian mass seen on CT, s/p hysterectomy Report EXAMINATION: Transabdominal and transvaginal pelvic ultrasound. COMPARISON: CT scan of 09/11/2019 from [facility]. REASON FOR STUDY: Right ovarian mass; [...] Baso Cnt 0.0 0.0-0.2 10*3/uL Normal 09-05-2019 [facility] (87967) Comment: Performed By: #### HEMDF, BM P3 #### [facility] [address] [place] [address] Abs Neutrophile Cnt 3.9 1.8-7.0 10*3/uL Normal 09-05-2019 [facility] (83866) Comment: Performed By: #### HEMDF, BM P3 #### [facility] [address] [place] [address] Basophils/100 WBC (Bld) 0.3 0.0-2.0 % Normal 2018 [facility] (07577) Comment: Performed By: #### HEMDF, BM P3 #### [place] [address] [place] [address] Eosinophils (Bld) [#/Vol] 0.2 0.0-0.5 10*3/uL Normal 08-15 [facility] (90873) Comment: Performed By: #### HEMDF, BM P3 #### [facility] [address] Eosinophils/100 WBC (Bld) 3.3 1.0-6.0 % Normal 08-15 [facility] (16833) Comment: Performed By: #### HEMDF, BM P3 #### [place] [address] [place] [address] Erythrocyte distribution 12.9 11.5-14.5 % Normal 09-05 [facility] width (RBC) [Ratio] (94126) Comment: Performed By: #### HEMDF, BM P3 #### [place] [address] [place] [address] Granulocytes/100 WBC (Bld) 55.5 40.0-80.0 % Normal [facility] (26558) Comment: Performed By: #### HEMDF, BM P3 #### [place] [address] [place] [address] Hematocrit (Bld) [Volume 34.8 35.0-47.0 % Low 09-05 [facility] fraction] (84302) Comment: Performed By: #### HEMDF, BM P3 #### [facility] [address] [place] [address] Hemoglobin (Bld) [Mass/Vol] 11.5 11.7-16.0 g/dL Low [facility] (33710) Comment: Performed By: #### HEMDF, BM P3 #### [place] [address] [address] [place], [place] Lymphocytes (Bld) [#/Vol] 2.5 1.0-4.3 10*3/uL Normal 08-15 [facility] (64864) Comment: Performed By: #### HEMDF, BM P3 #### [place] [address] [address] [place], [place] Lymphocytes/100 WBC (Bld) 35.4 20.0-40.0 % Normal 08-15 [facility] (97372) Comment: Performed By: #### HEMDF, BM P3 #### [place] [address] [address] [place], [place] MCH (RBC) [Entitic mass] 29.9 26.0-34.0 pg Normal 09-05 [facility] (78199) Comment: Performed By: #### HEMDF, BM P3 #### [place] [address] [address] [place], [place] MCHC (RBC) [Mass/Vol] 33.0 32.0-36.0 % Normal 09-05-20 19 [facility] (04125) Comment: Performed By: #### HEMDF, BM P3 #### [place] [address] [address] [place], [place] MCV (RBC) [Entitic vol] 90.7 79.0-98.0 fL Normal 2018 [facility] (03816) Comment: Performed By: #### HEMDF, BM P3 #### [place] [address] [address] [place], [place] Monocytes (Bld) [#/Vol] 0.4 0.0-0.8 10*3/uL Normal 2018 [facility] (93742) Comment: Performed By: #### HEMDF, BM P3 #### [facility] [address] [place] [address] Monocytes/100 WBC (Bld) 5.5 2.0-10.0 % Normal 2018 [facility] (57719) Comment: Performed By: #### HEMDF, BM P3 #### [facility] [place] [address] [address] [place], [place] Platelet mean volume (Bld) 9.8 7.4-10.4 fL Normal [facility] [Entitic vol] (36422 ) Comment: Performed By: #### HEMDF, BM P3 #### [place] [address] [address] [place], [place] Platelets (Bld) [#/Vol] 204 140-440 10*3/uL Normal 2018 [facility] (29792) Comment: Performed By: #### HEMDF, BM P3 #### [place] [address] [address] [place], [place] RBC (Bld) [#/Vol] 3.83 3.80-5.20 10*6/uL Normal 09-05-2019 [facility] (50363) Comment: Performed By: #### HEMDF, BM P3 #### [place] [address] [address] [place], [place] WBC (Bld) [#/Vol] 7.0 3.6-10.7 10*3/uL Normal 09-05-2019 [facility] (36514) Comment: Performed By: #### HEMDF, BM P3 #### [place] [address] [address] [place], [place] cr urography retrograde w/ + w/o kub on 2019-09-05 CR Urography Patient Name: SALLY MCGREGOR Normal 09-05-2019 [facility] Retrograde w/ + w/o System (76329) KUB Diagnostic Radiology Exam Date/Time 09/05/2019 08:12:21 EST Exam CR Urography Retrograde w/ + w/o KUB Ordering Physician MAUREEN STONE Accession Number [id number] CPT4 Codes 95371 () Reason For Exam Renal stone fluro c arm c and p Report A total of 1 minute and 11 seconds of fluoro time was used in the Operating Suite for this procedure. No other report will be generated. Final Signed Date and Time: 09/26/2019 2:02 pm Signed by: [employer] Transcribed Date and Time: 09/26/2019 1:19 Transcribed By:KRISTAN basic metabolic panel on 2019-09-05 Calcium [Mass/Vol] 8.7 8.4-10.4 mg/dL Normal 09-05-2019 [facility] (54515) Comment: Performed By: #### HEMDF, BM P3 #### [facility] [address] [place] [address] Anion gap [Moles/Vol] 7 Normal 09-05-20 [facility] (78550) Comment: Performed By: #### HEMDF, BM P3 #### [facility] [address] [place] [address] CO2 [Moles/Vol] 24 22-30 mmol/L Normal 09-05-2019 [facility] (82800) Comment: Performed By: #### HEMDF, BM P3 #### [facility] [address] [place] [address] Creatinine [Mass/Vol] 0.79 0.52-1.25 mg/dL Normal 09-05-20 [facility] (57844) Comment: Performed By: #### HEMDF, BM P3 #### [facility] [address] [place] [address] GFR/1.73 sq M > 60.0 >60 mL/min/{1.73_m2} Normal 9 [facility] predicted among Syst em (35793) blacks MDRD (S/P/Bld) [Vol rate/Area] Comment: Performed By: #### HEMDF, BM P3 #### [facility] [address] [place] [address] GFR/1.73 sq M > 60.0 >60 mL/min/{1.73_m2} Normal 9 [facility] predicted among Syst em (61638) non-blacks MDRD (S/P/Bld) [Vol rate/Area] Comment: Result Comment: Source- MDRD equation with creatinine calibration to IDMS(NKDEP) eGFR not recommended for dylon g dose adjustment Performed By: #### HEMDF, BM P3 #### [facility] [place] [address] [address], [place] Glucose [Mass/Vol] 85 70-100 mg/dL Normal 09-05-2019 [facility] (82523) Comment: Performed By: #### HEMDF, BM P3 #### [facility] [place] [address] [address] [place], [place] Urea nitrogen [Mass/Vol] 5 7-20 mg/dL Low 09-05 [facility] (58528) Comment: Performed By: #### HEMDF, BM P3 #### [facility] [place] [address] [address] [place], [place] Chloride [Moles/Vol] 108 98-107 mmol/L High 9 [facility] (96753) Comment: Performed By: #### HEMDF, BM P3 #### [facility] [place] [address] [address] [place], [place] Potassium [Moles/Vol] 4.0 3.5-5.1 mmol/L Normal 09-05-20 19 [facility] [facility] ([id number]) Comment: Performed By: #### HEMDF, BM P3 #### [place] [address] [address], [place] Sodium [Moles/Vol] 140 135-145 mmol/L Normal 09-05-2019 [facility] (19559) Comment: Performed By: #### HEMDF, BM P3 #### [place] [address] [address], [place] magnesium on 2018-09-22 Magnesium [Mass/Vol] 1.9 1.6-2.3 mg/dL Normal 9 [facility] (59293) Comment: Performed By: #### BMP3M, MG 3, HEMOG #### [facility] [address], [place] hemogram on 2019-08 Erythrocyte distribution 13.2 11.5-14.5 % Normal 09-04 [facility] width (RBC) [Ratio] (41643) Comment: Performed By: #### BMP3M, MG 3, HEMOG #### [facility] [address], [place] Hematocrit (Bld) [Volume 36.7 35.0-47.0 % Normal 09-04 [facility] fraction] (69936) Comment: Performed By: #### BMP3M, MG 3, HEMOG #### [facility] [address], [place] Hemoglobin (Bld) 12.3 11.7-16.0 g/dL Normal 09-04-2019 [facility] [Mass/Vol] (15445) Comment: Performed By: #### BMP3M, MG 3, HEMOG #### [facility] [address], [place] MCH (RBC) [Entitic mass] 30.6 26.0-34.0 pg Normal 09-04 [facility] (02298) Comment: Performed By: #### BMP3M, MG 3, HEMOG #### [place] [address] [address] [place], [place] MCHC (RBC) [Mass/Vol] 33.5 32.0-36.0 % Normal 09-04-20 19 [facility] (87854) Comment: Performed By: #### BMP3M, MG 3, HEMOG #### [facility] [address], [place] MCV (RBC) [Entitic vol] 91.3 79.0-98.0 fL Normal 2018 [facility] (79889) Comment: Performed By: #### BMP3M, MG 3, HEMOG #### [facility] [address], [place] Platelet mean volume (Bld) 10.4 7.4-10.4 fL Normal [facility] [Entitic vol] (70803 ) Comment: Performed By: #### BMP3M, MG 3, HEMOG #### [facility] [address], [place] Platelets (Bld) [#/Vol] 211 140-440 10*3/uL Normal 2018 [facility] (61574) Comment: Performed By: #### BMP3M, MG 3, HEMOG #### [facility] [address], [place] RBC (Bld) [#/Vol] 4.02 3.80-5.20 10*6/uL Normal 09-04-2019 [facility] (71970) Comment: Performed By: #### BMP3M, MG 3, HEMOG #### [place] [address] [address], [place] WBC (Bld) [#/Vol] 7.1 3.6-10.7 10*3/uL Normal 09-04-2019 [facility] (37708) Comment: Performed By: #### BMP3M, MG 3, HEMOG #### [place] [address] [address], [place] culture urine on 01-09-22 CULTURE URINE CULTURE URINE --> Status: F Normal 09-04-2019 [facility] No growth (<1,000 CFU/ml). (94032) Comment: Order Comment: Specimen Sour ce Comment:Urine, clean catch Performed By: #### C/UR #### [place] [address] [address] [place], [place] basic metabolic panel on 2019-09-04 Potassium [Moles/Vol] 3.5 3.5-5.1 mmol/L Normal 09-04-20 [facility] (45900) Comment: Performed By: #### BMP3M, MG 3, HEMOG #### [facility] [address], [place] Anion gap [Moles/Vol] 9 Normal 09-04-20 [facility] (74058) Comment: Performed By: #### BMP3M, MG 3, HEMOG #### [facility] [address], [place] Calcium [Mass/Vol] 8.8 8.4-10.4 mg/dL Normal 09-04-2019 [facility] (90606) Comment: Performed By: #### BMP3M, MG 3, HEMOG #### [place] [address] [address] [place], [place] CO2 [Moles/Vol] 26 22-30 mmol/L Normal 09-04-2019 [facility] (81859) Comment: Performed By: #### BMP3M, MG 3, HEMOG #### [place] [address] [address] [place], [place] Glucose [Mass/Vol] 76 70-100 mg/dL Normal 09-04-2019 [facility] (35536) Comment: Performed By: #### BMP3M, MG 3, HEMOG #### [place] [address] [address] [place], [place] Urea nitrogen [Mass/Vol] 10 7-20 mg/dL Normal 09-04 [facility] (58392) Comment: Performed By: #### BMP3M, MG 3, HEMOG #### [place] [address] [address] [place], [place] Creatinine [Mass/Vol] 0.81 0.52-1.25 mg/dL Normal 09-04-20 19 [facility] (11414) Comment: Performed By: #### BMP3M, MG 3, HEMOG #### [place] [address] [address] [place], [place] GFR/1.73 sq M > 60.0 >60 mL/min/{1.73_m2} Normal 9 [facility] predicted among Syst em (80478) blacks MDRD (S/P/Bld) [Vol rate/Area] Comment: Performed By: #### BMP3M, MG 3, HEMOG #### [place] [address] [address], [place] GFR/1.73 sq M > 60.0 >60 mL/min/{1.73_m2} Normal 9 [facility] predicted among Syst em (95965) non-blacks MDRD (S/P/Bld) [Vol rate/Area] Comment: Result Comment: Source- MDRD equation with creatinine calibration to IDMS(NKDEP) eGFR not recommended for dylon g dose adjustment Performed By: #### BMP3M, MG 3, HEMOG #### [facility] [address], [place] Sodium [Moles/Vol] 138 135-145 mmol/L Normal 09-04-2019 [facility] (78448) Comment: Performed By: #### BMP3M, MG 3, HEMOG #### [facility] [address], [place] Chloride [Moles/Vol] 103 98-107 mmol/L Normal 9 [facility] (45284) Comment: Performed By: #### BMP3M, MG 3, HEMOG #### [facility] [address], [place] cr abdomen ap on 01-09-21 CR Abdomen AP Patient Name: SALLY MCGREGOR 09-03-2019 [facility] ([id number] ) Diagnostic Radiology Exam Date/Time 09/03/2019 17:35:36 EST Exam CR Abdomen AP Ordering Physician MD RACH,CONCHIS J Accession Number [id number] CPT4 Codes 85106 () Reason For Exam nephrolithiasis Report ABDOMEN, [...] on 2019-08-03 [facility] Letter Text Normal 08-03-2019 [facility] ([id number]) xr sacrum/coccyx 3v ap/lat on 2019-07-21 XR SACRUM/COCCYX 3V * * *Final Report* * * Normal 07-21-2019 [place] AP/LAT DATE OF EXAM: Jul 21 2019 11:38AM [facility] WOX 5246 - XR SACRUM/COCCYX 3V AP/LAT / 4 [place] PROCEDURE REASON: multiple diagnoses (72041) * * * * Physician Interpretation * [...] BONY ABNORMALITY IN THE PELVIS SEGMENT COCCYX. Stacker: PSCB Transcribe Date/Time: Jul 21 2019 4:01P Dictated by : ESTEE CUMMINGS MD This examination was interpreted and the report reviewed and electronically signed by: ESTEE CUMMINGS MD on Jul 21 2019 4:06PM EST [id number] xr lumbar 3v ap/lat/l5-s1 on 2019-07-21 XR LUMBAR 3V * * *Final Report* * * Normal [place] AP/LAT/L5-S1 DATE OF EXAM: Jul 21 2019 11:38AM [facility] WOX 5228 - XR LUMBAR 3V AP/LAT/L5-S1 / [place] PROCEDURE REASON: multiple diagnoses (16180) * * * * Physician Interpretation * [...] BONY ABNORMALITY IN THE PELVIS SEGMENT COCCYX. St[facility] Transcribe Date/Time: Jul 21 2019 4:01P Dictated by : ESTEE CUMMINGS MD This examination was interpreted and the report reviewed and electronically signed by: ESTEE CUMMINGS MD on Jul 21 2019 4:06PM EST [id number] tsh on 2019-07-21 TSH Qn 1.510 0.270-4.200 uU/mL Normal 07-21-2019 [facility] (37408) Comment: Result Comment: If the patie nt is , TSH reference range varies by gestational period: First Trimester (weeks 9-12) : 0.180-2.990 mcIU/mL Second Trimester: 0.110-3.98 0 mcIU/mL Third Trimester: 0.480-4.710 mcIU/mL Leander Bro, et al. A Practica l Approach for the Verifications and Determination of Site- and Trimester-Specific Reference Intervals for Thyroid Function tests in . Thyroid, 2019:29:3:412-420. Cesairo Shannon, et al. 2017 Guide lines of the [place] Thyroid Association for the Diagnosis and Management of Thyroid Disease during and the . Thyroid, 2017:27:3:315-389. Performed By: #### HBA1C, TS Julieth, MORIAH #### [facility] [address] [place] [id number] progress on 2019-07 PROGRESS HNO ID: [id number] Normal 07-21-2019 [facility] Author: Elena Stauffer [place] ([id number]) Service: ? Author Type: ? Type: Progress [...] 21, 2019 11:23 AM PROGRESS HNO ID: [id number] Normal 07-21-2019 [facility] Author: Randi Arias [place] ([id number]) Service: ? Author Type: Physician Senior Architect Type: Progress Notes Filed: 07/21/2019 11:26 AM [...] Benign liver cyst 05/24/2010 CT scan at [facility] 11/2009 and 04/2010 showe 4 mm increase in size . No pain. No elevated LFTs on 03/11/2010. - Calculus of kidney 05/17/[address] Nicolas: Hospitalized age 20, and again later -- no procedures so far [facility]) - Dysmenorrhea - Impaired fasting glucose [...] removed - TOTAL ABDOM HYSTERECTOMY 08/31/06 Hysterectomy, [facility] Family History FAMILY HISTORY Problem Relation [...] activity: Yes Partners: Male control/protection: Surgical Comment: [facility] Lifestyle Physical activity: Days per week: Not on file Minutes per session: Not on file Stress: Not on file Relationships Social connections: Talks on phone: Not on file Gets together: Not on file Attends caodaism service: Not on file Active member of [...] Cholesterol [Mass/Vol] 206 <200 mg/dL High 019 [facility] (68560) Comment: Result Comment: <200 mg/dL, Desirable 200-239 mg/dL, Borderline hi gh >239 mg/dL, High Performed By: #### HBA1C, TS H, LIPNF #### [facility] [address] [place], [place] [address] Cholesterol in 2.39 <2.54 mg/dL Normal 07-21-2019 [facility] LDL/Cholesterol in HDL [Mass [place] (98246) ratio] Comment: Result Comment: Reference: 1. National Cholesterol Educ ation Program ATP III Guideline At-A-Glance Quick Desk Reference: National Heart, Lung, and Blood [place]. National Institutes of Health. 2001: NIH Publication No. 01-3305. 2. An International Atherosc lerosis Society position paper: global recommendations for the management of dyslipidemia: executive summary, Atherosclerosis. 2014: 232(2):410-413. Performed By: #### HBA1C, TS H, LIPNF #### [facility] [address] [place], [place] [address] Cholesterol.total/Cholesterol in 4.04 <5.10 mg/dL Normal 07-21-2019 [place] HDL [Mass ratio] Cli nghia [place] (70884) Comment: Performed By: #### HBA1C, TS H, LIPNF #### [facility] [address] [place], [place] [address] HDL Cholesterol, NF 51 >39 mg/dL Normal 07-21-2019 [facility] (27326) Comment: Result Comment: 40-59 mg/dL, Acceptable >59 mg/dL, High: Negative ri sk factor for coronary heart disease <40 mg/dL, Low: Positive ris k factor for coronary heart disease Performed By: #### HBA1C, TS H, LIPNF #### [facility] [address] [place], [place] [address] LDL Cholesterol, NF 122 <100 mg/dL High 07-21-2019 [facility] (97480) Comment: Result Comment: <100 mg/dL, Optimal 100-129 mg/dL, Near optimal/ above optimal 130-159 mg/dL, Borderline hi gh 160-189 mg/dL, High >189 mg/dL, Very high Secondary prevention optimal LDL Cholesterol levels are recommended to be < 70 mg/dL Performed By: #### HBA1C, TS H, LIPNF #### [facility] [address] [place] [address] Non HDL Chol, NF 155 <130 mg/dL High 07-21-2019 [facility] (33090) Comment: Result Comment: <130 mg/dL, Optimal 130-159 mg/dL, Near optimal/ above optimal 160-189 mg/dL, Borderline hi gh 190-219 mg/dL, High >219 mg/dL, Very high Secondary prevention optimal non HDL Cholesterol levels are recommended to be < 100 mg/dL Performed By: #### HBA1C, TS H, LIPNF #### [facility] [address] [place] [address] Triglycerides, NF 163 <150 mg/dL High 07-21-2019 C [facility] (51943) Comment: Result Comment: <150 mg/dL, Normal 150-199 mg/dL, Borderline hi gh 200-499 mg/dL, High >499 mg/dL, Very high Performed By: #### HBA1C, TS H, LIPNF #### [facility] [address] [place] [address] VLDL Cholesterol, NF 33 <30 mg/dL High 9 [facility] (71981) Comment: Performed By: #### HBA1C, TS H, LIPNF #### [facility] [address] [place] [address] hemoglobin a1c on HbA1c (Bld) [Mass fraction] 5.3 4.3-5.6 % Normal [facility] (81913) Comment: Result Comment: [place] Marya betes Association guidelines indicate that patients with HgbA1c in the range 5.7-6.4% are at increased risk for development of diabetes, and intervention by lifestyle modification may be beneficial. HgbA1c greater o r equal to 6.5% is considered diagnostic of diabetes. Performed By: #### HBA1C, TS H, LIPNF #### [facility] [address] [place] [address] HbA1c (Bld) [Mass fraction] 105 mg/dL Normal [facility] (80058) Comment: Result Comment: eAG: (Jaimiea arnie average glucose) is a calculated value from HgbA1c and is pharmacy sales representative of the average blood glucose level in the last 2-3 month period. Performed By: #### HBA1C, TS H, LIPNF #### [facility] [address] [place], [place] [id number] cnov on 2019-07-21 CNOV Office Visit (FAMPWS) Normal 07-21-20 [place] [facility] SALLY MCGREGOR ([id number]) 1980 [facility] Date Time Provider Department (56059) 07/21/19 10:40 AM JAY ARIAS) FAMPWS During [...] Benign liver cyst 05/24/2010 CT scan at [facility] 11/2009 and 04/2010 showe 4 mm increase in size . No pain. No elevated LFTs on 03/11/2010. - Calculus of kidney 05/17/[address] Nicolas: Hospitalized age 20, a nd again later -- no procedures so far ([facility], [place], 1995 [facility]) - Dysmenorrhea - Impaired fasting glucose [...] removed - TOTAL ABDOM HYSTERECTOMY 08/31/06 Hysterectomy, [facility] Family History FAMILY HISTORY Problem Relation [...] activity: Yes Partners: Male control/protection: Surgical Comment: [facility] Lifestyle Physical activity: Days per week: Not on file Minutes per session: Not on file Stress: Not on file Relationships Social connections: Talks on phone: Not on file Gets together: Not on file Attends caodaism service: Not on file Active member of [...] Z13.6] Order(s):CONSULT TO NEUROLOGY [9019] Order #: [id number]: [id number] FUTURE amitriptyline (ELAVIL) 50 mg tabletTake 1 tablet by mouth da federico at bedtime.Disp: 30 tabletRfl: 5 XR LUMBAR GENERAL 3V AP/LAT/L5-S1 [3278553] Order #: [id number] FUTURE XR SACRUM/COCCYX 3V AP/LAT [1778344] Order #: [id number] FUT URE TSH BLD [SQTSH] Order #: [id number] FUTURE HGB A1C [ZUESH2O] Order #: [id number] FUTURE LIPID PANEL, NONFASTING [SQLIPNF] Order #: [id number] FUTURE cyclobenzaprine (FLEXERIL) 10 mg tabletTake 1 [...] - 3. Body Temperature 97.81 [degF] 05-17-2020 [facility] (42313) Body Temperature 97.9 [degF] 05-08-2020 [facility] (79252) Body weight 89.9 kg 05-17-2020 [facility] (88475) Body weight 93.89 kg 05-08-2020 [facility] (03319) BP Diastolic 82 mm[Hg] 05-17-2020 [facility] (04612) BP Diastolic 76 mm[Hg] 05-08-2020 [facility] (55353) BP Systolic 124 mm[Hg] 05-17-2020 [facility] (22329) BP Systolic 121 mm[Hg] 05-08-2020 [facility] (68745) Height 154.9 cm 05-08-2020 [facility] (79483) Pulse (Heart Rate) 86 /min [facility]-17-2020 [facility]99155[facility] Pulse (Heart Rate) 91 /min 05-08-2020 [facility]ia (68074) Pulse Oximetry 97 % 05-08-2020 [facility] (89894) Respiratory Rate 16 /min [facility] (83028[facility] Respiratory Rate 18 /min 05-08-2020 [facility] (70676) Encounters Date Type Reason Provider Location 06-25-2020 - Chart abstracting Postoperative pain Noaman Tanesha [facility] 06-25-2020 [facility] Comment: Refill Request 05-23-2020 - E-mail encounter Isabel Romero) [facility] 05-23-2020 from carer Hugo 03-24-2020 - Emergency Migraine, CORBY Johnston 03-24-2020 department unspecified, not [facility] patient visit intractableCORBY (95426) without status [facility] migrainosus CORBY M OLVIN ARIAS UNKNOWN PROVIDER 01-21-2020 - Emergency ANA Johnston 01-21-2020 [facility] ANA ALVARADO ([id number]) JENNIFER ARIAS UNKNOWN PROVIDER 11-25-2019 - Emergency ANA Johnston 11-25-2019 department [facility] al patient visit ANA ALVARADO ([id number]) JENNIFER ARIAS UNKNOWN PROVIDER 10-31-2019 - Emergency Lower abdominal NIKHIL Moreira e 10-31-2019 [facility] unspecified NIKHIL Shannon ([id number]) JEAN ARIAS UNKNOWN PROVIDER 04-26-2020 - Letter encounter [facility] 04-26-2020 [facility] 05-14-2020 - Orders Only Liver cyst [facility]ccall [facility] Comment: Liver cyst (Primary Dx) 05-11-2020 - Orders Only Idiopathic acute [facility]ccall [facility] [place] 05-11-2020 pancreatitis [place] Comment: Idiopathic acute pancreatiti s, unspecified complication status (Primary Dx) surgical referral 05-10-2020 - Orders Only Idiopathic acute [facility] [place] 05-10-2020 pancreatitis [place] Comment: Idiopathic acute pancreatiti s, unspecified complication status (Primary Dx) 06-05-2020 - Patient encounter Cyst of pancreas [facility] 06-05-2020 procedure [facility] Comment: Pancreatic cyst (Primary Dx) 05-30-2020 - Patient [facility] Provider Adolfo lyle 05-30-2020 encounter procedure 05-24-2020 - Patient Abdominal Johnny Mccall Gastroenterolog [facility] 05-24-2020 encounter bloating [facility] procedure Comment: Bloating (Primary Dx); Nausea and vomiting, intract ability of vomiting not specified, unspecified vomiting type; Diarrhea, unspecified type 05-23-2020 Patient encounter Postoperative pain Isabel Romero) [facility] procedure Arias [place] Comment: RE: Appointment Request 05-17-2020 - Patient encounter Shoulder pain Xr [facility] [place] [facility] 05-17-2020 procedure Kenia (Jaki) Bartolo Bernard (Jaki) Bartolo Comment: Radiology XR Acute pain of right shoulder (Primary Dx) 04-30-2020 - Patient encounter Generalized abdominal Us [facility] adiology 04-30-2020 procedure pain Mob 1 Comment: Radiology US 05-30-2020 Results Only [facility] Provider [facility] Department 05-08-2020 - Subsequent Generalized Johnny Mccall Ambulatory 05-08-2020 hospital visit by abdominal pain [facility] Surgery physician Comment: Generalized abdominal pain [ R10.84] 06-05-2020 - Telemedicine Mala Almendarez [facility] c 06-05-2020 consultation with patient 05-24-2020 - Telemedicine Johnny Mccall [facility] 05-24-2020 consultation with Hannah patient 06-15-2020 - Telephone encounter Local infection Taty (Financial Reporting Accountant [facility] 06-15-2020 of wound [employer]) [facility] SURGERY DEPARTMENT Comment: Multiple Concerns 05-31-2020 - Telephone encounter Johnny Mccall Gastroen [facility]ology [place] 05-31-2020 [facility] Comment: Patient Update 05-18-2020 - Telephone Shoulder pain Marcelino Mejia [facility] 05-18-2020 encounter [place] Comment: Referral Request 05-07-2020 - Telephone encounter Johnny Mccall Gastro[facility] [place] 05-07-2020 [facility] Comment: Patient Update 05-01-2020 - Telephone encounter Johnny Mccall [facility] [place] 05-01-2020 [facility] Comment: Results 04-30-2020 - Telephone encounter Johnny Mccall Gastroen [facility]ology [place] 04-30-2020 [facility] Comment: Returning Patient's Call 04-27-2020 - 04-27-2020 Telephone encounter Marcelino Mejia [facility] [place] Comment: Medication request Procedures Procedure Name Date Provider Location Antibody screen 06-11-2020 [facility] (63317) Comment: Performed By: #### CBCD1 ### # [place] [id number] CARDIAC 05-30-2020 [facility] Provider [facility] (27424) Radex shoulder complete minimum 2 05-17-2020 - Kenia (Jaki) [facility] views 05-17-2020 [facility] (33859) SURGICAL PATHOLOGY 05-08-2020 Johnny Mccall [place] [facility] [place] (48452) Colonoscopy flx dx w/collj spec 05-08-2020 [facility] Provider [facility] when pfrmd (59536) Esophagogastroduodenoscopy 05-08-2020 [facility] Provider [facility] transoral diagnostic (48246) Us abdominal real time w/image 04-30-2020 - Johnny Mccall [facility] limited 04-30-2020 [place] (17233) Urinalysis 10-31-2019 [facility] l (86117) Comment: Result Comment: URINALYSIS Performed By: #### [id number] ## ## [facility],[address] [place] [address] Plan of Treatment Plan Description Date Location DTAP,TDAP,TD (2 - Td) DTAP,TDAP,TD (2 - Td) 05-28-2025 - [facility] 05-28-2025 (03196) INFLUENZA (#1) INFLUENZA (#1) 2020 - [facility] 05-15-2020 (70855) MAMMOGRAM MAMMOGRAM 2019 - [facility] 2019 (24743) COLONOSCOPY COLONOSCOPY 1997 - [facility] 1997 (94936) HEPATITIS C SCREENING HEPATITIS C SCREENING 1997 - [facility] 1997 (75027) HIV SCREENING HIV SCREENING 1997 - [facility] 1997 (73620) COLONOSCOPY - COLONOSCOPY - DIAGNOSTIC 05-08-2020 [facility] DIAGNOSTIC Endoscopy Routine (07780) Generalized abdominal pain Loose stools Dyspepsia Gastroesophageal reflux disease, esophagitis presence not specified Other dysphagia History of acute pancreatitis Bloating Nausea and vomiting, intractability of vomiting not specified, unspecified vomiting type 1 Occurrences starting 05/08/2020 until 05/08/2020 Comment: 1 Occurrences starting 05/08 until 05/08/2020 EGD EUS EGD EUS Endoscopy Routine Idiopathic 05-10-2021 [facility] (82318) acute pancreatitis, unspecified complication status 1 Occurrences starting 05/10/2020 until 05/10/2021 Comment: 1 Occurrences starting 05/10 until 05/10/2021 EGD EGD Endoscopy Routine Generalized abdominal 04-15 [facility] (67526) pain Loose stools Dyspepsia Gastroesophageal reflux disease, esophagitis presence not specified Other dysphagia History of acute pancreatitis Bloating Nausea and vomiting, intractability of vomiting not specified, unspecified vomiting type 1 Occurrences starting 05/08/2020 until 05/08/2020 Comment: 1 Occurrences starting 05/08 until 05/08/2020 MRI ABDOMEN WO/W IVCON MRI ABDOMEN WO/W IVCON 07-05-2021 [facility] (59537) Radiology Routine Pancreatic cyst 1 Occurrences starting 06/05/2020 until 07/05/2021 Comment: 1 Occurrences starting 06/05 until 07/05/2021 PRE-PROCEDURE & PRE-PROCEDURE & 05-10-2021 [facility] PRE-OPERATIVE COVID PRE-OPERATIVE COVID (87203) Microbiology Routine Idiopathic acute pancreatitis, unspecified complication status 1 Occurrences starting 05/10/2020 until 05/10/2021 Comment: 1 Occurrences starting 05/10 until 05/10/2021 SURGICAL PATHOLOGY SURGICAL PATHOLOGY Lab Routine [facility] (31358) 05/08/2020 1:17 PM EDT no information [facility] (38096) Immunizations Vaccine Notes Status Date Location Influenza Seasonal influenza, seasonal, (completed) 05-11-2020 - [facility] Inj Age 3+ injectable 05-11-2020 (76434) Influenza Seasonal influenza, seasonal, (completed) 05-31-2019 - [facility] Inj Age 3+ injectable 05-31-2019 (66479) Pneumovax pneumococcal (completed) 05-19-2017 - [facility] c polysaccharide vaccine, 05-19-2017 (441 95) 23 valent Tdap (Age 7+) tetanus toxoid, reduced (completed) 05-28-2015 - [facility] diphtheria toxoid, and 05-28-2015 (4419 5) acellular pertussis vaccine, adsorbed Payers Payer Name Policy Number Location [facility] [id number] [facility] OUTPATIENT (63176) [employer] [id number] [facility] ([phone] [id number] [facility] (63311) [id number] [facility] [facility] ([id number]) [id number] [facility] ([id number]) [id number] [facility] ([id number]) The following information is from the original human readable contentNo Payer Records FoundNo Payer Records FoundNo Payer Records FoundNo Payer Records FoundNo Payer Records FoundNo Payer Records FoundNo Payer Records FoundNo Payer Records FoundNo Payer Records Found Social History Type Social History Date Location Description History of tobacco use Current smoker 01-12-2017 [facility] ([id number]) Alcohol Comment Occasional 11-26-2010 - [facility] 11-26-2010 ([id number]) History of tobacco use Cigarette Smoker 01-12-2017 [facility] ([id number]) Cigarettes smoked 05-17-2020 - [facility] current (pack per day) 06-08-2020 (52418) - Reported Tobacco use and Never used 05-17-2020 - [facility] exposure 06-08-2020 (29879) Alcohol intake Current drinker of 05-17-2020 - [facility] alcohol (finding) 06-08-2020 (29731) Tobacco Comment Approx. 3 cigarettes 03-10-2011 - [facility] daily-1 pack every week 03-10-2011 (65440) Tobacco smoking status Former smoker 05-17-2020 - [facility] NHIS 06-08-2020 (31029) Sex Assigned At Not on file [facility] (52793) Exposure to SARS-CoV-2 Not sure [facility] (event) (19535) History SDOH Financial 5 06-08-2020 - [facility] 06-08-2020 (32296) History SDOH Food Worry 1 06-08-2020 - [facility] 06-08-2020 (73957) History SDOH Transport 2 06-08-2020 - [facility] 06-08-2020 (90390) Exposure to SARS-CoV-2 Yes [facility] (event) (84601) The following information is from the original [...] Winn MD documented in this encounterKenia Mcfarland ([employer]) - 05/17/2020 11:57 AM EDT Visit Date: May 17, 2020 Patient Name: Ms.Nichole Jeana Mcgregor Date of : 1980 MRN/E #: [id number] Chief Complaint Patient presents with: right shoulder [...] history is provided by the patient. No speech language pathology assistant was used. PAIN EVALUATION 05/17/2020 1153 Pain [...] Benign liver cyst 05/24/2010 CT scan at [facility] 11/2009 and 04/2010 showe 4 mm increase in size. No pain. No elevated LFTs on 03/11/2010. ? Calculus of kidney 05/17/[address] Nicolas: Hospitalized age 20, and again later -- no procedures so far ([facility], 1995 [facility]) ? Dysmenorrhea ? History of blood [...] go to the ED. Patient went to [place] ED and mentions 'nothing was done. They [...] note she presented to the ED in [place] in January 2020 for abdominal pain of [address] abdomen was essentially unremarkable including pancreas. Was found to have lipase of 193 on 02/15/2020. Amylase normal. Hepatic function panel. ? Has h/o cholecystectomy in 1998. PAST MEDICAL HISTORY Diagnosis Date ? Allergic rhinitis, cause unspecified 05/17/2008 Spring and summer ? Benign liver cyst 05/24/2010 CT scan at [facility] 11/2009 and 04/2010 showe 4 mm increase in size. No pain. No elevated LFTs on 03/11/2010. ? Calculus of kidney 05/17/[address] Nicolas: Hospitalized age 20, and again later -- no procedures so far [facility] ? Cancer (HCC) ? Diverticulosis ? [...] removed ? TOTAL ABDOM HYSTERECTOMY 08/31/06 Hysterectomy, [facility] Problem Relation Age of [...] the ED yesterday - she went to [place] ED and was told that pancreas levels [...] for nausea. 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) 05/08/2020 12:13 PM Advance Directive(s) 05/25/2020 7:47 AM Documents on File Type Date Recorded 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) 05/08/2020 12:13 PM Advance Directive(s) 05/25/2020 7:47 AM Advance Directive(s) 06/08/2020 9:30 AM Documents on File Type Date Recorded 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) 05/08/2020 12:13 PM Advance Directive(s) 05/25/2020 7:47 AM Advance Directive(s) 06/08/2020 9:30 AM Documents on File Type Date Recorded 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) 05/08/2020 12:13 PM [...] NEW PATIENT VISIT LEVEL 5 [address] [facility] [address] [facility] [place], [place] [phone] Phone: Fax: Status Reason Specialty Diagnoses / Referred By Referred To Procedures Contact Contact Authorized PCP Requested Orthopedics Diagnoses Acute shoulder pain, unspecified laterality Marcelino Mejia Referral Procedures CONSULT TO ORTHOPAEDICS NEW PATIENT VISIT LEVEL 5 [address] [place] [address] Status Reason Specialty Diagnoses / Referred By Referred To Procedures Contact Contact Pending Review Auto-Generated MR IMAGING Diagnoses Pancreatic cyst Mala Almendarez Mr Imaging Referral Procedures MRI ABDOMEN WO/W IVCON MRI,ABDOMEN,W&WO CONTRS [address] [address] Status Reason Specialty Diagnoses / Procedures Referred By C ryan Referred To Contact Closed Diagnoses Post-op pain Mala Almendarez [address] [address] Phone: Instructions Patient InstructionsKenia Mcfarland) - 05/17/2020 [...] BE BASED ON THE PRIMARY CLINICAL RECORDS. [facility] provides no warranty or guarantee of the accuracy or completeness of information in this document. UNRECOGNIZED CONTENT PROVIDED BELOW FOR UNRECOGNIZED SECTION Source Comments In the event this information is protected by the Federal Confidentiality of Alcohol and Drug Abuse Patient Records regulations: The Federal rules restrict any use of the information to criminally investigate or prosecute any alcohol or drug abuse patient.[facility] the event this information is protected by the Federal Confidentiality of Alcohol and Drug Abuse Patient Records regulations: The Federal rules restrict any use of the information to criminally investigate or prosecute any alcohol or drug abuse patient.[facility] the event this information is protected by the Federal Confidentiality of Alcohol and Drug Abuse Patient Records regulations: The Federal rules restrict any use of the information to criminally investigate or prosecute any alcohol or drug abuse patient.[facility] the event this information is protected by the Federal Confidentiality of Alcohol and Drug Abuse Patient Records regulations: The Federal rules restrict any use of the information to criminally investigate or prosecute any alcohol or drug abuse patient.[facility] the event this information is protected by the Federal Confidentiality of Alcohol and Drug Abuse Patient Records regulations: The Federal rules restrict any use of the information to criminally investigate or prosecute any alcohol or drug abuse patient.[facility] the event this information is protected by the Federal Confidentiality of Alcohol and Drug Abuse Patient Records regulations: The Federal rules restrict any use of the information to criminally investigate or prosecute any alcohol or drug abuse patient.[facility] the event this information is protected by the Federal Confidentiality of Alcohol and Drug Abuse Patient Records regulations: The Federal rules restrict any use of the information to criminally investigate or prosecute any alcohol or drug abuse patient.[facility] the event this information is protected by the Federal Confidentiality of Alcohol and Drug Abuse Patient Records regulations: The Federal rules restrict any use of the information to criminally investigate or prosecute any alcohol or drug abuse patient.[facility] the event this information is protected by the Federal Confidentiality of Alcohol and Drug Abuse Patient Records regulations: The Federal rules restrict any use of the information to criminally investigate or prosecute any alcohol or drug abuse patient.[facility] Hospital[facility] the event this information is protected by [...] or prosecute any alcohol or drug abuse patient.[facility] the event this information is protected by the Federal Confidentiality of Alcohol and Drug Abuse Patient Records regulations: The Federal rules restrict any use of the information to criminally investigate or prosecute any alcohol or drug abuse patient.[facility] the event this information is protected by the Federal Confidentiality of Alcohol and Drug Abuse Patient Records regulations: The Federal rules restrict any use of the information to criminally investigate or prosecute any alcohol or drug abuse patient.[facility] the event this information is protected by the Federal Confidentiality of Alcohol and Drug Abuse Patient Records regulations: The Federal rules restrict any use of the information to criminally investigate or prosecute any alcohol or drug abuse patient.[facility] the event this information is protected by the Federal Confidentiality of Alcohol and Drug Abuse Patient Records regulations: The Federal rules restrict any use of the information to criminally investigate or prosecute any alcohol or drug abuse patient.[facility] the event this information is protected by the Federal Confidentiality of Alcohol and Drug Abuse Patient Records regulations: The Federal rules restrict any use of the information to criminally investigate or prosecute any alcohol or drug abuse patient.[facility] Hospital[facility] the event this information is protected by the Federal Confidentiality of Alcohol and Drug Abuse Patient Records regulations: The Federal rules restrict any use of the information to criminally investigate or prosecute any alcohol or drug abuse patient.[facility] HospitalIn the event this information is protected by the Federal Confidentiality of Alcohol and Drug Abuse Patient Records regulations: The Federal rules restrict any use of the information to criminally investigate or prosecute any alcohol or drug abuse patient.[facility] HospitalIn the event this information is protected by the Federal Confidentiality of Alcohol and Drug Abuse Patient Records regulations: The Federal rules restrict any use of the information to criminally investigate or prosecute any alcohol or drug abuse patient.[facility] HospitalIn the event this information is protected by the Federal Confidentiality of Alcohol and Drug Abuse Patient Records regulations: The Federal rules restrict any use of the information to criminally investigate or prosecute any alcohol or drug abuse patient.[facility] HospitalIn the event this information is protected by the Federal Confidentiality of Alcohol and Drug Abuse Patient Records regulations: The Federal rules restrict any use of the information to criminally investigate or prosecute any alcohol or drug abuse patient.[facility] the event this information is protected by the Federal Confidentiality of Alcohol and Drug Abuse Patient Records regulations: The Federal rules restrict any use of the information to criminally investigate or prosecute any alcohol or drug abuse patient.[facility] Hospital[facility] the event this information is protected by the Federal Confidentiality of Alcohol and Drug Abuse Patient Records regulations: The Federal rules restrict any use of the information to criminally investigate or prosecute any alcohol or drug abuse patient.[facility] UNRECOGNIZED CONTENT PROVIDED BELOW FOR UNRECOGNIZED [...] dyspepsia,gerd,dysphagia 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, 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 Johnny Winn [place] ENDOSCOPY Procedures COLONOSCOP W/ OR W/O [facility] SPEC EGD W/O OR W/BRUSH/WASH COLONOSCOPY W/EGD [address] [place], [place] [address] Phone: [place], [place] [phone] Fax: Reason Onset Date Comments Patient [...] CREATED AUTHOR AUTHOR'S ORGANIZATIO N 10/21/2019 [facility] DATE CREATED AUTHOR AUTHOR'S ORGANIZATIO N 04/06/2020 [facility] DATE CREATED AUTHOR AUTHOR'S ORGANIZATIO N 02/26/2020 [facility] ([place]) DATE CREATED AUTHOR AUTHOR'S ORGANIZATIO N 06/11/2020 [facility] DATE CREATED AUTHOR AUTHOR'S ORGANIZATIO N 06/21/2020 [facility] DATE CREATED AUTHOR AUTHOR'S ORGANIZATIO N 06/26/2020 [facility] UNRECOGNIZED CONTENT PROVIDED BELOW FOR UNRECOGNIZED SECTION [...] pcp would send Rx for phenergan to [facility]. Reports she's had nausea for weeks. [...] panel was not drawn, left message with [place] lab to contact patient for redraw Pierce [...] or do not improve. Taty Perea APRN, QUICK MIXER OPERATOR documented in this encounter UNRECOGNIZED CONTENT PROVIDED [...]
--- OUTSIDE RECORDS SUMMARY | 2020-06-26 15:07 | XMS RPT_ITS | CCD ---
:1980 External Reference #:[id number] Author Organization [facility] Care Team Providers Name Role Phone [...] Cephalexin Itching 10-20-2019 - [facility] ([id number]) Chlorhexidine Rash 10-29-2016 - [facility] (36800) CONTRAST MEDIA, Moderate Mello Pomeren e IODINE RELATED ([facility] Repository (Qualifier Value) Ibuprofen GI Upset Low 06-18-2016 - [facility] (53355) Ibuprofen Moderate [facility] ([facility]) Repository (Qualifier Value) Iodine Shortness of Breath Low 05-17-2008 - [facility] (97167) Ketorolac Moderate [facility] ([facility]) Repository (Qualifier Value) Ketorolac Rash 05-25-2020 - [facility] (13093) metroNIDAZOLE Moderate [facility] ([facility]) Repository (Qualifier Value) Penicillins [facility]89461[facility] Penicillins Moderate [facility] ([facility]) Repository (Qualifier Value) predniSONE Other: See Comments Low 06-18-2016 [facility] (03212) Promethazine Moderate [place] [facility] ([facility]) Repository (Qualifier Value) Salicylic Acid Other: See Comments Low 01-27-2011 - [facility] (82323) traMADol Rash 05-25-2020 - [facility] (56338) Medications Medication Name Sig Date Prescriber Location Albuterol albuterol HFA (VENTOLIN [facility] Provider [facility] ([id number]) HFA) 90 mcg/actuation inhaler Inhale 2 Puffs as instructed every 4 hours as needed. 0 Active Comment: Inhale 2 Puffs as instructed every 4 hours as needed. Bifidobacterium Bifidobacterium 04-26-2020 - Johnny [facility] Infantis (ALIGN) 4 mg 07-25-2020 [facility] (39977) cap Take 1 capsule by mouth once daily. 30 capsule 2 04/26/2020 07/25/2020 Active Comment: Take 1 capsule by mouth once daily. Clindamycin clindamycin (CLEOCIN) 06-15-2020 - Jonh (Res) [facility] 300 mg capsule 06-26-2020 [facility] (72869) Indications: Incisional infection Take 1 capsule by mouth four times daily for 5 days. 20 capsule 0 06/21/2020 06/26/2020 Active Comment: Take 1 capsule by mouth four times daily for 5 days. diazePAM diazePAM (VALIUM) 5 mg 06-05-2020 [facility] tablet Indications: 06-07-2020 Mala [facility] (41343) Pancreatic cyst Take 1 tablet by mouth once daily for 2 days. 2 tablet 0 06/05/2020 06/07/2020 Active Comment: Take 1 tablet by mouth once daily for 2 days. Dicyclomine dicyclomine (BENTYL) 04-26-2020 - Johnny Mccall [facility] 10 mg capsule Take 1 05-24-2020 [facility] (73538) capsule by mouth before meals and at bedtime. Use as directed 90 capsule 1 04/26/2020 05/24/2020 Discontinued Comment: Take 1 capsule by mouth befo re meals and at bedtime. Use as directed diphenhydrAMINE diphenhydrAMINE (BENADRYL) 03-29-2019 [facility] Provide r [facility] 25 mg capsule Take 50 mg (44 195) by mouth every 6 hours as needed. 0 03/29/2019 Active Comment: Take 50 mg by mouth every 6 hours as needed. Docusate docusate sodium 06-21-2020 Jonh (Res) [facility] (COLACE) 100 mg capsule Bertke (441 95) Take 1 capsule by mouth twice daily. 60 capsule 0 06/21/2020 Active Comment: Take 1 capsule by mouth twic e daily. Estradiol estradiol (ESTRACE) 2 mg 03-23-[address] [facility] (04492) tablet Take 2 mg by mouth once daily. 0 03/23/2020 Active Comment: Take 2 mg by mouth once kehinde y. HYDROmorphone HYDROmorphone 06-12-2020 - Mala Almendarez [facility] nghia (HYDROMORPHONE) 2 mg 06-19-2020 (58642) tablet Indications: Post-op pain Take 1 tablet by mouth every 3 hours as needed for Pain for up to 7 days. 40 tablet 0 06/12/2020 06/19/2020 Active Comment: Take 1 tablet by mouth every 3 hours as needed for Pain for up to 7 days. Hyoscyamine hyoscyamine (LEVSIN) 05-24-2020 Johnny Mccall [facility] 0.125 mg tablet Take 1 [facility] (4419 5) tablet by mouth every 6 hours as needed. 60 tablet 1 05/24/2020 Active Comment: Take 1 tablet by mouth every 6 hours as needed. iv contrast (will iv contrast (will be 06-05-2020 - Mala Almendarez [facility] be provided with provided with 06-06-2020 Mala Almendarez (69345) radiology test) radiology test) MRI ABDOMEN Inject, [...] metroNIDAZOLE metroNIDAZOLE (FLAGYL) 04-26-2020 - Johnny Mccall [facility] 500 mg tablet Take 1 05-03-2020 [facility] (30201) tablet by mouth three times daily for 7 days. 21 tablet 0 04/26/2020 05/03/2020 Active Comment: Take 1 tablet by mouth three times daily for 7 days. Naloxone naloxone 4 mg/actuation 06-21-2020 Jonh (Res) [facility] nasal spray (NARCAN) Use Chad (26 195) 1 spray in one nostril as [...] oxyCODONE IR 06-21-2020 - Maria Luisa Trejo [facility] (ROXICODONE) 5 mg 06-26-2020 (88892) immediate release tablet Indications: Benign liver cyst Take 1 tablet by mouth every 8 hours as needed for up to 5 days. 15 tablet 0 06/21/2020 06/26/2020 Active oxyCODONE IR 05-29-2020 - Sorin (Res) [facility] (ROXICODONE) 5 mg 06-03-2020 Alhalalmeh (66510) immediate release tablet Indications: Intractable nausea and [...] mg 04-30-2020 [facility] (27652) tablet Take 1 tablet by mouth daily before breakfast. Take on empty stomach, 1/2 hr before meal. 30 tablet 3 04/30/2020 Active Comment: Take 1 tablet by mouth daily before breakfast. Take on empty stomach, 1/2 hr before meal. POLYETHYLENE GLYCOL polyethylene glycol 06-21-2020 - [place] (Res ) [place] 3350 3350 (MIRALAX) 17 07-22-2020 [facility] (44 195) gram/dose powder Dissolve 1 packet in 4-8 ounces of liquid and drink by mouth once daily as directed. 476 g 0 06/21/2020 07/22/2020 Active Comment: Dissolve 1 packet in 4-8 oun simi of liquid and drink by mouth once daily as directed. POLYETHYLENE GLYCOL peg 3350-Electrolytes 04-26-2020 - Johnny Mccall [place] 3350 / Potassium (GOLYTELY) 04-26-2020 [facility] (441 95) Chloride / Sodium 236-22.74-6.74 -5.86 Johnny Mccall Bicarbonate / gram suspension [facility] Sodium Chloride / Indications: sodium sulfate Generalized [...] 1 mg cap Take 1 [facility] Provider [facility] (42155) mg by mouth daily at bedtime. 0 Active Comment: Take 1 mg by mouth daily at bedtime. pregabalin pregabalin (LYRICA) 06-25-2020 - Mala [facility] 300 mg capsule 07-09-2020 Mala Almendarez (14530) Indications: Post-op pain Take 1 capsule by mouth twice daily for 14 days. 28 capsule 0 06/25/2020 07/09/2020 Active Comment: Take 1 capsule by mouth twic e daily for 14 days. Promethazine promethazine (PHENERGAN) 05-24-2020 [facility] 25 mg tablet Take 1 [facility] (18659) tablet by mouth every 8 hours as needed (for nausea). 10 tablet 0 05/24/2020 Active Comment: Take 1 tablet by mouth every 8 hours as needed (for nausea). QUEtiapine QUEtiapine (SEROQUEL) 02-23-2020 Marcelino Mejia [facility] 100 mg tablet Take 1 (30407) tablet by mouth once daily. 0 02/23/2020 Active Comment: Take 1 tablet by mouth once daily. Sertraline sertraline (ZOLOFT) 100 02-23-2020 Marcelino Ferreira [facility] mg tablet Take 1 tablet (441 95) by mouth once daily. 0 02/23/2020 Active Comment: Take 1 tablet by mouth once daily. Sucralfate sucralfate (CARAFATE) 1 05-24-2020 Johnny Mccall [facility] gram tablet Take 1 (24610) tablet by mouth four times daily. 30 tablet 0 05/24/2020 Active Comment: Take 1 tablet by mouth four times daily. Problems Active Problems Category Problem Name Status Date Location Abdominal pain Lower abdominal pain, Active 10-31-2019 - [facility] (06346[facility] Anxiety disorders Generalized anxiety Active 03-31-2016 - [facility] disorder (32266) Esophageal disorders Gastroesophageal reflux Active [facility] disease (91453) Headache; including Migraine without aura Active 05-17-2008 - [facility] migraine [facility] (17638) Mood disorders Reactive depression Active 03-31-2016 - [facility] (situational) (75711) Nausea and vomiting Nausea and vomiting Active 05-25-2020 - C [facility] (81154) Other disorders of Indigestion Active [facility] stomach and duodenum (66571) Other gastrointestinal Diarrhea Active [facility] disorders (31911) Other gastrointestinal Loose stool Active [facility] disorders (12734) Other gastrointestinal Abdominal bloating Active [facility] disorders (12503) Other gastrointestinal Dysphagia Active [facility] disorders (10687) Other gastrointestinal Personal history of Active [facility] disorders other diseases of the (89335 ) digestive system Other infections; Local infection of wound Active [facility] including parasitic (34471) Other liver diseases Liver cyst Active 05-24-2010 - [facility] (27765) Other nervous system Postoperative pain Active 06-19-2020 - C [facility] disorders (07867) Other nervous system Chronic pain syndrome Active 06-06-2020 - [facility] disorders (38292) Other non-traumatic joint Shoulder pain Active C [facility] disorders (12243) Other upper respiratory Allergic rhinitis Active 05-17-2008 - [facility] disease (65600) Pancreatic disorders (not Idiopathic acute Active [facility] diabetes) pancreatitis (78208) Paralysis Weakness of right leg Active 02-23-2017 - [facility] (16827) Substance-related Smoker Active 05-17-2008 - Mello Pomer willem disorders [facility] (63581) Unclassified Patient encounter status Active 05-17-2008 - [facility] (55821) Past or Other Problems Category Problem Name Status Date Location Allergic reactions Allergy status to Completed 10-31-2019 - Mello Pomerene narcotic agent status [facility] (72432) Blindness and vision Blurring of visual Completed 02-23-2017 - [facility] defects image (69649) Calculus of urinary Kidney stone Completed 05-17-2008 - [facility] tract (77568) Diabetes mellitus Impaired fasting Completed 05-17-2008 - [facility] without complication glycaemia (06174) Miscellaneous mental Adjustment insomnia Completed 03-31-2016 - [facility] health disorders (10236) Other connective tissue Muscle weakness of Completed 02-23-2017 - [facility] disease upper limb (39290) Other connective tissue Trochanteric bursitis Completed 06-18-20 - [facility] disease (27344) Other diseases of Hydroureter Completed 02-05-2017 - [facility] kidney and ureters (25841) Other diseases of Hydronephrosis Completed 02-05-2017 - [facility] kidney and ureters (82993) Other lower respiratory Multiple nodules of Completed 01-22-2020 - [facility] disease lung (54714) Other nervous system Numbness of lower limb Completed 02-23-2017 - [facility] disorders (06681) Other nervous system Numbness of upper limb Completed 02-23-2017 - [facility] disorders (37350) Other nervous system Numbness of face Completed 02-23-2017 - [facility] disorders (54887) Other non-traumatic Hip pain Completed 06-18-2016 - [facility] joint disorders (83391) Other screening for MRI of lumbar spine Completed 02-23-2017 - C [facility] suspected conditions abnormal (36384) (not mental disorders or infectious disease) Ovarian cyst Cyst of ovary Completed 07-15-2012 - [facility] (68496) Residual codes; Acquired absence of Completed 10-31-2019 - [facility] unclassified both cervix and uterus [facility] (69680) Residual codes; Acquired absence of Completed 10-31-2019 - [facility] unclassified other specified parts [facility] of digestive tract (21742) Residual codes; FH: Diabetes mellitus Completed 05-17-2008 - [facility] unclassified (41146) Spondylosis; Low back pain Completed 06-18-2016 - [facility] intervertebral disc (23968) disorders; other back problems Results Result Name Value Range Unit Interpretation Flag Date Location obsolete on 2020-06 OBSOLETE Refill ([facility]) Normal 06-25-2020 [facility] SALLY MCGREGOR ([id number]) 1980 F Medical Date Time Provider Department Center 06/25/20 MALA ALMENDAREZ [facility] (97332) During your visit today, we recorded the [...] 06/25/20 progress on 2020-06 PROGRESS HNO ID: [id number] Normal 06-21-2020 Milka Dumont Author: Maria Luisa K [facility] Service: Pain Management (45314) Author Type: Physician Type: Progress Notes Filed: [...] Approx. 3 cigarettes daily-1 pack every w [place] Substance Use Topics - Alcohol use: Yes [...] and migraine headache. She was referred to [place] pain management but was unable to go [...] pain. Small quantity oxycodone prescription sent to [facility] Maria Luisa Trejo MD plan of care on PLAN OF CARE HNO ID: [id number] Normal 06-21-20 [facility] Author: Rhonda Holman (Pharmacist) Center (99612) Service: Pharmacy Author Type: Pharmacist Type: Plan [...] PHARMACIST June 21, 2020 11:55 AM Pager: [phone] 06/21/2020 11:55 AM Medication List START taking [...] Your Medications These medications were sent to [facility] [address] [place], [place] [id number] Hours: Thursday-Thursday, 8am-6:30pm ? clindamycin 300 mg capsule ? docusate sodium 100 mg capsule ? naloxone 4 mg/actuation nasal spray ? oxyCODONE IR 5 mg immediate release tablet ? polyethylene glycol 3350 17 gram/dose powder nursing prog on NURSING HNO ID: [id number] Normal 06-21-2020 [place] [facility] Author: Silvia Naranjo) VIN Gomez General Service: ? Medical Author Type: Registered Nurse Center Type: Nursing Progress Note ([id number]) Filed: 06/20/2020 11:32 PM Note Text: Nursing Progress Note Patient Name: Sally Mcgregor Patient Location: [id number] Pt has been eating better and was told by the doctor that wh en her intake improved the fluids could be discontinued. Pt does not want fluids to continue so RN stopped fluids on pt's request. Doctor note i ndicated what the pt said. This note was completed by: Silvia Gomez RN progress on 2020-06 PROGRESS HNO ID: [id number] Normal 06-20-2020 [place] Author: Jonh Urrutia DO General Service: General Surgery Medical Author Type: Resident Center Type: Progress Notes ([id number]) Filed: 06/20/2020 8:38 AM Note Text: Attestation signed by Mala Almendarez at 06/20/2020 2:18 PM I saw and evaluated the patient. Discussed with the reside nt and agree with resident's findings and plan as documented in the resident's note. [facility] Progress Note SERVICE DATE: 06/20/2020 [facility] Service Pager: For questions or concerns Mon-Fri 6a-5p please page [phone]. After 5pm and on Weekends and Holidays, please page [phone]. SUBJECTIVE: Doing better this morning. Says pain [...] - enteric contrast (radiology procedure) ORAL DIRECTED AK N - oxyCODONE IR 5-10 mg tab(s) [...] questions or concerns Mon-Fri 6a-5p please page [phone]. After 5pm and on Weekends and Holidays, please page [phone] if in ICU or [phone] if on RNF. plan of care on PLAN OF CARE HNO ID: [id number] Normal 06-20-20 20 [facility] Medical Author: Nancy Abebe [place] ([id number]) Service: General Surgery Author Type: Resident Type: [...] history physical on 2020-06-20 HISTORY HNO ID: [id number] Normal 06-20-2020 [place] PHYSICAL Author: Nancy Abebe [facility] Service: General Surgery Medical Author Type: Resident Center Type: HAND ([id number]) Filed: 06/19/2020 11:38 PM Note Text: Attestation signed by Mala Almendarez at 06/20/2020 2:18 PM Attending Note I personally saw and examined the patient. I reviewed the resident's note. I agree with the resident's assessment and plan with the [facility] revisions and/or additions: CT scan reviewed. [...] get worse. She was se nt to [place] ED, where she was given IV Dilauded and transferred here to [facility]. Pt reports that she is urinating, passing flatus and BMs. No N/ V. No fevers or chills. Last PO was at 1300h. Pt has a h/o multiple abd surgeries. Reformed smoker x5 anai hs. FUNCTIONAL STATUS: Independent PAST MEDICAL HISTORY Diagnosis Date - Allergic rhinitis, cause unspecified 05/17/2008 Spring and summer - Benign liver cyst 05/24/[address] [facility] 11/2009 and 04/2010 showe 4 mm increase in size . No pain. No elevated LFTs on 03/11/2010. - Calculus of kidney 05/17/[address] Nicolas: Hospitalized age 20, and again later -- no procedures so far ([facility], [facility], 1995 [facility]) - Cancer (HCC) - Diverticulosis - Dysmenorrhea [...] Approx. 3 cigarettes daily-1 pack every w [place] Substance Use Topics - Alcohol use: Yes [...] oz (86.0kg) SpO2 100% LMP 08/10/2006 B PR 35.84 kg/(m2). O2 Therapy: Room Air DATA: [...] DATE OF EXAM: Jun 20 2020 11:59AM [facility] 0530 - CT ABD/PEL W IVCON / (41469) PROCEDURE REASON: Abd pain, unspecified Physician Interpretation [...] ed portions of the heart are unremarkable. Foundation Director (topogram) images: No additional findings. IMPRESSION: 1. Postsurgical changes in the posterior right hepatic dome with residual 8.3 cm cystic cavity with trace likely postsurgical gas, but no peripheral enhancement to suggest acute inflammation. 2. Other hepatic cyst are unchanged. 3. No acute intra-abdominal or pelvic findings. 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: [employer] Transcribe Date/Time: Jun 20 2020 12:16P Dictated by : NILAM OVIEDO MD This examination was interpreted and the report reviewed and electronically signed by: NILAM OVIEDO MD on Jun 20 2020 12:28PM EST consult on CONSULT HNO ID: [id number] Normal 06-20-2020 [place] [facility] Author: [facility] Anya [facility] Service: Pain Management (28836) Author Type: Physician Type: Consults Filed: 06/20/2020 [...] - enteric contrast (radiology procedure) ORAL DIRECTED AK N Kaushal (Res) DO Grupo - oxyCODONE [...] 1 gram tablet, [facility] four times daily., Disp: 30 tablet, Rfl: [...] Approx. 3 cigarettes daily-1 pack every w [place] Substance Use Topics - Alcohol use: Yes [...] and migraine headache. She was referred to [place] pain management but was unable to go [...] health on 03-07-07 ALLIED HEALTH HNO ID: [id number] Normal 020 [place] [facility] Author: Holly PickardRt) [facility] Service: Radiology ( 73020) Author Type: Sap Bobj Developer Type: Allied Health Filed: 06/20/2020 12:04 PM [...] unstable renal function, e.g. those with ac [place] kidney injury, the eGFR may not accurately [...] Albumin [Mass/Vol] 4.3 3.9-4.9 g/dL Normal 06-19-2020 [facility] (81450) Comment: Order Comment: Specimen Type : BLOOD SPECIMEN Performed By: #### 91793-2 # ###[facility] [id number] [facility] [place] [address] ALP [Catalytic activity/Vol] 110 34-123 U/L Normal 1 0-06-2020 [facility] (00 000) Comment: Order Comment: Specimen Type : BLOOD SPECIMEN Performed By: #### 04202-4 # ###[facility]ORYCLIA [id number] [place] [address] ALT With P-5'-P [Catalytic 16 7-38 U/L Normal [facility] Medical activity/Vol] [place] (08324) Comment: Order Comment: Specimen Type : BLOOD SPECIMEN Performed By: #### 64483-5 # ###[facility]ORYCLIA [id number] [place] [address] Anion gap [Moles/Vol] 13 9-18 mmol/L Normal 06-19-[address] [facility] (24141) Comment: Order Comment: Specimen Type : BLOOD SPECIMEN Performed By: #### 99568-9 # ###[facility]ORYCLIA [id number] [place] [address] AST With P-5'-P [Catalytic 19 13-35 U/L Normal [facility] activity/Vol] [place] (36371) Comment: Order Comment: Specimen Type : BLOOD SPECIMEN Performed By: #### 78102-6 # ###[facility]ORYCLIA [id number] [place] [address] Bilirubin [Mass/Vol] 0.2 0.2-1.3 mg/dL Normal 0 [facility] (90701) Comment: Order Comment: Specimen Type : BLOOD SPECIMEN Performed By: #### 02260-5 # ###[facility]ORYCLIA [id number] [place] [address] Calcium [Mass/Vol] 9.1 8.5-10.2 mg/dL Normal 06-19-2020 [facility] (37279) Comment: Order Comment: Specimen Type : BLOOD SPECIMEN Performed By: #### 05947-5 # ###[facility]ATORYCLIA [id number] [place] [address] Chloride [Moles/Vol] 102 97-105 mmol/L Normal 0 [facility] (80613) Comment: Order Comment: Specimen Type : BLOOD SPECIMEN Performed By: #### 01323-4 # ###[facility] LABORATORYCLIA [id number] [facility] [address] CO2 [Moles/Vol] 22 22-30 mmol/L Normal 06-19-2020 [facility] (57665) Comment: Order Comment: Specimen Type : BLOOD SPECIMEN Performed By: #### 78389-1 # ###[facility]ORATORYCLIA [id number] [facility] [address] Creatinine [Mass/Vol] 0.88 0.58-0.96 mg/dL Normal 06-19-[address] [facility] (00 000) Comment: Order Comment: Specimen Type : BLOOD SPECIMEN Performed By: #### 50703-1 # ###[facility]ORATORYCLIA [id number] [facility] [address] GFR/1.73 sq M.predicted >60 mL/min/{1.73_m2} Normal 06-19-2020 [facility] MDRD (S/P/Bld) [[facility] rate/Area] (18696) Comment: Order Comment: Specimen Type : BLOOD SPECIMEN Result Comment: >60 eGFR (Estimated GFR) Units o f measure: mL/min/1.73 meters squared eGFR is derived from the ree xpressed MDRD Study equation using the following parameters: serum creatinine, age, gender and race. The creatinine assay has been calibrated to be traceable to IDVT. An eGFR <60 mL/min/1.73m2 for >3 mo nths is consistent with chronic kidney disease. Refer to KDOQI guidelines for clinical interpretation. In patients with unstable renal function, e.g. those with acute k idney injury, the eGFR may n ot accurately reflect actual GFR. Performed By: #### 28202-0 # ###[facility] LABORATORYCLIA [id number] [facility] [address] Glucose [Mass/Vol] 100 74-99 mg/dL High 06-19-2020 [facility] (77019) Comment: Order Comment: Specimen Type : BLOOD SPECIMEN Result Comment: The [place] Diabetes Association (ADA) provides guidance for cutoff [...] for diagnosis of diabetes. Reference: Standards of [facility] Care in Diabetes 2016, [place] [employer]. Diabetes Care. 2016.39(Suppl 1). Performed By: #### 14982-3 # ###[facility] LABORATORYCLIA [id number] [place] [address] Potassium [Moles/Vol] 3.8 3.7-5.1 mmol/L Normal 06-19-[address] [facility] (00 000) Comment: Order Comment: Specimen Type : BLOOD SPECIMEN Performed By: #### 20783-1 # ###[facility] LABORATORYCLIA [id number] [place] [address] Protein [Mass/Vol] 7.7 6.3-8.0 g/dL Normal 06-19-2020 [facility] (94063) Comment: Order Comment: Specimen Type : BLOOD SPECIMEN Performed By: #### 56512-7 # ###[place] [facility] LABORATORYCLIA [id number] [facility] [place] [address] Sodium [Moles/Vol] 137 136-144 mmol/L Normal 06-19-2020 [facility] (59546) Comment: Order Comment: Specimen Type : BLOOD SPECIMEN Performed By: #### 63457-8 # ###AKNgt4u.inc [facility] LABORATORYCLIA [id number] [place] [address] Urea nitrogen [Mass/Vol] 14 7-21 mg/dL Normal 06-19 [facility] (56549) Comment: Order Comment: Specimen Type : BLOOD SPECIMEN Performed By: #### 28970-6 # ###[facility]ORATORYCLIA [id number] [place] [address] cbc w auto diff bld on 2020-06-19 Basophils (Bld) [#/Vol] 0.08 <0.11 k/uL Normal 2019 [facility] (00 000) Comment: Order Comment: Specimen Type : BLOOD SPECIMEN Performed By: #### 85993-2 # ###[facility]ORATORYCLIA [id number] [place] [address] Basophils/100 WBC (Bld) 0.7 % Normal 2019 [facility] (97917) Comment: Order Comment: Specimen Type : BLOOD SPECIMEN Performed By: #### 59847-7 # ###[facility] LABORATORYCLIA [id number] [facility] [place] [address] Differential cell count method Auto Normal 06-19-2020 [facility] (Bld) Center (00 000) Comment: Order Comment: Specimen Type : BLOOD SPECIMEN Performed By: #### 89244-1 # ###[facility] LABORATORYCLIA [id number] [facility] [place] [address] Eosinophils (Bld) [#/Vol] 0.71 <0.46 k/uL High [facility] (00 000) Comment: Order Comment: Specimen Type : BLOOD SPECIMEN Performed By: #### 20652-1 # ###[facility] LABORATORYCLIA [id number] [facility] [place] [address] Eosinophils/100 WBC (Bld) 6.0 % Normal [facility] (62067) Comment: Order Comment: Specimen Type : BLOOD SPECIMEN Performed By: #### 67944-5 # ###[facility] LABORATORYCLIA [id number] [facility] [place] [address] Erythrocyte distribution 13.3 11.5-15.0 % Normal 06-19 [facility] (RBC) [Ratio] Center (58525) Comment: Order Comment: Specimen Type : BLOOD SPECIMEN Performed By: #### 11178-6 # ###[facility] LABORATORYCLIA [id number] [facility] [place] [address] Hematocrit (Bld) [Volume 37.8 36.0-46.0 % Normal 06-19 [facility]] Center (00 000) Comment: Order Comment: Specimen Type : BLOOD SPECIMEN Performed By: #### 46306-3 # ###[facility] LABORATORYCLIA [id number] [place] [place] [address] Hemoglobin (Bld) 12.1 11.5-15.5 g/dL Normal 06-19-2020 [facility] [Mass/Vol] [place] (0 0000) Comment: Order Comment: Specimen Type : BLOOD SPECIMEN Performed By: #### 85506-0 # ###[facility] LABORATORYCLIA [id number] [facility] [place] [address] IMMATURE GRAN % 1.5 % Normal 06-19-2020 [facility] (98816) Comment: Order Comment: Specimen Type : BLOOD SPECIMEN Performed By: #### 00624-1 # ###[facility] LABORATORYCLIA [id number] [facility] [place] [address] IMMATURE GRAN ABS 0.18 <0.10 k/uL High 06-19-2020 [facility] (95685) Comment: Order Comment: Specimen Type : BLOOD SPECIMEN Result Comment: Differential confirmed by visual scan of peripheral blood smear slide Performed By: #### 83688-2 # ###[facility] LABORATORYCLIA [id number] [facility] [place] [place] [address] Lymphocytes (Bld) [#/Vol] 4.79 1.00-4.00 k/uL High [facility] (00 000) Comment: Order Comment: Specimen Type : BLOOD SPECIMEN Performed By: #### 42073-4 # ###[facility] LABORATORYCLIA [id number] [facility] [place] [address] Lymphocytes/100 WBC (Bld) 40.6 % Normal [facility] (08493) Comment: Order Comment: Specimen Type : BLOOD SPECIMEN Performed By: #### 83080-1 # ###[facility] LABORATORYCLIA [id number] [facility] [place] [place] [address] MCH (RBC) [Entitic mass] 28.6 26.0-34.0 pg Normal 06-19 [facility] () Comment: Order Comment: Specimen Type : BLOOD SPECIMEN Performed By: #### 35272-4 # ###[facility]ORATORYCLIA [id number] [place] [address] MCHC (RBC) [Mass/Vol] 32.0 30.5-36.0 g/dL Normal 06-19-20 [facility] () Comment: Order Comment: Specimen Type : BLOOD SPECIMEN Performed By: #### 22588-5 # ###[facility]ATORYCLIA [id number] [place] [address] MCV (RBC) [Entitic vol] 89.4 80.0-100.0 fL Normal 06-19 [facility] () Comment: Order Comment: Specimen Type : BLOOD SPECIMEN Performed By: #### 76763-6 # ###[facility]ORATORYCLIA [id number] [place] [address] Monocytes (Bld) [#/Vol] 0.53 <0.87 k/uL Normal 2019 [facility] () Comment: Order Comment: Specimen Type : BLOOD SPECIMEN Performed By: #### 80820-8 # ###[facility]ORATORYCLIA [id number] [place] [address] Monocytes/100 WBC (Bld) 4.5 % Normal 2019 [facility] (88116) Comment: Order Comment: Specimen Type : BLOOD SPECIMEN Performed By: #### 62901-6 # ###[facility]ORATORYCLIA [id number] [place] [address] Neutrophils (Bld) [#/Vol] 5.51 1.45-7.50 k/uL Normal [facility] () Comment: Order Comment: Specimen Type : BLOOD SPECIMEN Performed By: #### 48064-7 # ###[facility]ORATORYCLIA [id number] [place] [address] Neutrophils/100 WBC (Bld) 46.7 % Normal [facility] (38417) Comment: Order Comment: Specimen Type : BLOOD SPECIMEN Performed By: #### 00027-4 # ###[facility]ORATORYCLIA [id number] [place] [address] Nucleated RBC (Bld) <0.01 <0.01 10*3/uL Normal 06-19-2020 [facility] [#/Vol] [place] (00 000) Comment: Order Comment: Specimen Type : BLOOD SPECIMEN Performed By: #### 35240-2 # ###[facility] LABORATORYCLIA [id number] [facility] [place] [address] Nucleated RBC/100 WBC 0.0 0.0 /100 WBC Normal 06-19-20 [facility] (Bld) [Ratio] [place] (12151) Comment: Order Comment: Specimen Type : BLOOD SPECIMEN Performed By: #### 23695-3 # ###[facility]ORATORYCLIA [id number] [place] [address] Platelet mean volume (Bld) 10.4 9.0-12.[address] [facility] [Entitic vol] [place] ([address]21) Comment: Order Comment: Specimen Type : BLOOD SPECIMEN Performed By: #### 42593-4 # ###[facility]ORATORYCLIA [id number] [place] [address] Platelets (Bld) [#/Vol] 324 150-400 k/uL Normal 2019 [facility] (00 000) Comment: Order Comment: Specimen Type : BLOOD SPECIMEN Performed By: #### 75854-9 # ###[facility] LABORATORYCLIA [id number] [place] [address] RBC (Bld) [#/Vol] 4.23 3.90-5.20 m/uL Normal 06-19-2020 [facility] (09696) Comment: Order Comment: Specimen Type : BLOOD SPECIMEN Performed By: #### 76149-7 # ###[facility] LABORATORYCLIA [id number] [place] [address] RED CELL MORPH Normal Normal 06-19-2020 [facility] (25684) Comment: Order Comment: Specimen Type : BLOOD SPECIMEN Performed By: #### 36087-7 # ###[facility] LABORATORYCLIA [id number] [facility] [address] WBC (Bld) [#/Vol] 11.80 3.70-11.00 k/uL High 06-19-2020 [facility] (55967) Comment: Order Comment: Specimen Type : BLOOD SPECIMEN Performed By: #### 28808-3 # ###[facility] LABORATORYCLIA [id number] [facility] [place] [address] cnpn on 2020-06-15 CNPN Telephone (AGGENS6) Normal 06-15-2020 [facility] SALLY MCGREGOR ([id number]) 1980 F Medical Date Time Provider Department Center 06/15/20 TATY PEREA (CHANNEL MARKETING COORDINATOR, STRIP CUTTING MACHINE OPERATOR) AGGENS6 ([id number]) During your visit today, we recorded the following informati on about you: Taty Perea APRN.STRIP CUTTING MACHINE OPERATOR 06/15/2020 11:28 AM Signed Patient called [...] transportation. [facility] because they treat her poorly. I will send an RX to her pharmacy for an antibiotic. She is to notify the office if her symptoms worsen or do not improve. Taty Perea APRN, STRIP CUTTING MACHINE OPERATOR Allergies As of Date: 06/15/2020 Noted [...] 06/15/20 progress on 2020-05 PROGRESS HNO ID: [id number] Normal 06-13-2020 [place] Author: Kimmie Jennings General Service: General Surgery Medical Author Type: Resident Center Type: Progress Notes (41872) Filed: 06/13/2020 6:55 AM Note Text: Attestation signed by Mala Almendarez at 06/18/2020 1:28 PM I saw and evaluated the patient. Discussed with the reside nt and agree with resident's findings and plan as documented in the resident's note. [facility] Progress Note SERVICE DATE: 06/13/2020 [facility] Service Pager: For questions or concerns Mon-Fri 6a-5p please page [phone]. After 5pm and on Weekends and Holidays, please page [phone]. SUBJECTIVE: Patient stayed overnight due to uncontrolled [...] 0659 06/13/20 07 - 06/14/20 0659 Shift 3558-4406 4724-5960 4061-8855 24 Hour Total 7048-6791 8489-4136 8027-8673 24 Hour Total INTAKE PO 240 200 [...] on MRI. ? Hospital Course: 06/08: MRI Panc/Jaems: multiple simple hepatic cysts, MRCP: nor mal [...] questions or concerns Mon-Thu 6a-5p please page [phone]. After 5pm and on Weekends and Holidays, please page [phone] if in ICU or [phone] if on RNF. PROGRESS HNO ID: [id number] Normal 06-13-2020 [place] Author: Mer (Rn) VIN Bejarano General Service: [...] plan of care on PLAN HNO ID: [id number] Normal 06-13-2020 [place] [facility] Author: Aureliano Dietz DO General CARE [...] Phosphate [Mass/Vol] 3.9 2.7-4.8 mg/dL Normal 0 [facility] (54722) Comment: Performed By: #### URIN2 ### # [facility] [address] [place] [address] mdrd gfr on 2020-05 GFR/1.73 sq M >60 >60mL/min/1.73m2 mL/min/{1.73_m2} Normal [facility] non-blacks MDRD (000 00) (S/P/Bld) [Vol rate/Area] Comment: Result Comment: If the patie nt is , multiply the result by 1.210. Performed By: #### GFR #### [address] [address] magnesium blood on 2020-06-13 Magnesium [Mass/Vol] 2.1 1.7-2.3 mg/dL Normal 0 [facility] (95422) Comment: Performed By: #### URIN2 ### # [address] [address] hemogram on 2020-05 Erythrocyte distribution 13.4 11.7-14.4 % Normal 06-13 [facility] width (RBC) [Ratio] System (20877) Comment: Performed By: #### URIN2 ### # [facility] [address] [place], [place] [address] Hematocrit (Bld) [Volume 37.9 34.1-44.9 % Normal 06-13 [facility] fraction] System (00 000) Comment: Performed By: #### URIN2 ### # [address] [address] Hemoglobin (Bld) 12.1 11.2-15.7 g/dL Normal 06-13-2020 [facility] [Mass/Vol] System (0 0000) Comment: Performed By: #### URIN2 ### # [facility] [address] [place], [place] [address] MCH (RBC) [Entitic mass] 28.9 25.6-32.2 pg Normal 06-13 [facility] (00 000) Comment: Performed By: #### URIN2 ### # [facility] [address] [place], [place] [address] MCHC (RBC) [Mass/Vol] 31.9 31.6-34.8 % Normal 06-13-20 20 [facility] (09965) Comment: Performed By: #### URIN2 ### # [facility] [address] [place], [place] [address] MCV (RBC) [Entitic vol] 90.7 79.4-94.8 fl Normal 2019 [facility] (00 000) Comment: Performed By: #### URIN2 ### # [facility] [address] [place], [place] [address] Platelet mean volume (Bld) 10.9 9.4-12.3 fl Normal [facility] [Entitic vol] System (71947) Comment: Performed By: #### URIN2 ### # [facility] [address] [place], [place] [address] Platelets (Bld) [#/Vol] 236 182-369 thou/cmm Normal 2019 [facility] (00 000) Comment: Performed By: #### URIN2 ### # [facility] [address] [place], [place] [address] RBC (Bld) [#/Vol] 4.18 3.93-5.22 mil/cmm Normal 06-13-2020 [employer] [facility] (00 000) Comment: Performed By: #### URIN2 ### # [facility] [address] [place], [place] [address] RDW SD 44.2 36.4-46.3 fl Normal 06-13-2020 [facility] (50175) Comment: Performed By: #### URIN2 ### # [facility] [address] [place], [place] [address] WBC (Bld) [#/Vol] 7.45 3.98-10.04 thou/cmm Normal 06-13-2020 [facility] (00 000) Comment: Performed By: #### URIN2 ### # [facility] [address] [place] [address] comprehensive metabolic panel on 2020-06-13 Albumin [Mass/Vol] 4.1 3.9-4.9 g/dL Normal 06-13-2020 [facility] (24085) Comment: Performed By: #### URIN2 ### # [facility] [address] [place] [address] ALP [Catalytic activity/Vol] 98 34-123 U/L Normal 0 06-13-2020 [facility] (00 000) Comment: Performed By: #### URIN2 ### # [facility] [address] [place] [address] ALT [Catalytic activity/Vol] 73 7-38 U/L High 0 06-13-2020 [facility] (69789) Comment: Performed By: #### URIN2 ### # [facility] [address] [place] [address] Anion gap [Moles/Vol] 10 9-18 mmol/L Normal 06-13-20 20 [facility] (49551) Comment: Performed By: #### URIN2 ### # [facility] [address] [place] [address] AST [Catalytic activity/Vol] 69 13-35 U/L High 0 06-13-2020 [facility] (31486) Comment: Performed By: #### URIN2 ### # [facility] [address] [place] [id number] Bilirubin [Mass/Vol] 0.6 0.2-1.3 mg/dL Normal 0 [facility] (04083) Comment: Performed By: #### URIN2 ### # [facility] [address] [place] [id number] Calcium [Mass/Vol] 9.1 8.5-10.2 mg/dL Normal 06-13-2020 [facility] (26168) Comment: Performed By: #### URIN2 ### # [facility] [address] [place], [place] [address] Chloride [Moles/Vol] 101 97-105 mmol/L Normal 0 [facility] (38386) Comment: Performed By: #### URIN2 ### # [facility] [address] [place], [place] [address] CO2 Blood 27 22-30 mmol/L Normal 06-13-2020 [facility] (43721) Comment: Performed By: #### URIN2 ### # [facility] [address] [place], [place] [address] Creatinine [Mass/Vol] 0.87 0.58-0.96 mg/dL Normal 06-13-20 [facility] (00 000) Comment: Performed By: #### URIN2 ### # [facility] [address] [place], [place] [address] Glucose [Mass/Vol] 94 74-99 mg/dL Normal 06-13-2020 [facility] (13154) Comment: Result Comment: The [place] Diabetes Association (ADA) provides guidance for cutoff [...] Standards of Medical Care in Diabetes 2016; [place] Diabetes Association. Diabetes Care. 2016;39(Suppl 1). Performed By: #### URIN2 ### # [facility] [address] [place], [place] [address] Potassium [Moles/Vol] 3.8 3.7-5.1 mmol/L Normal 06-13-20 [facility] (00 000) Comment: Performed By: #### URIN2 ### # [facility] [address] [place], [place] [address] Protein [Mass/Vol] 7.3 6.3-8.0 g/dL Normal 06-13-2020 [facility] (57314) Comment: Performed By: #### URIN2 ### # [facility] [address] [place], [place] [address] Sodium [Moles/Vol] 138 136-144 mmol/L Normal 06-13-2020 [facility] (73171) Comment: Performed By: #### URIN2 ### # [facility] [address] [place], [place] [address] Urea nitrogen [Mass/Vol] 7 7-21 mg/dL Normal 06-13 [facility] (60537) Comment: Performed By: #### URIN2 ### # [facility] [address] [place], [place] [address] case managem on CASE MANAGEM HNO ID: [id number] Normal 06-13-20 [facility] Author: Britni PickardRn) VIN Grimaldo [facility] Service: Care Management (56033) Author Type: Registered Nurse Type: Care Mgt [...] Name/Phone: Floor RN TRANSPORTATION ARRANGEMENTS: Transportation Arrangements: [employer] (through [employer]) [place] [employer]: [phone] Trip #: [id number] Needs Prior to Discharge: Ready for Discharge Chart reviewed. Discharge held yesterday due to uncontrolled pain. Spoke with patient. Plan is for discharge today. Awaiting di awarfausto orders. Discharge disposition= Home with follow up care. SIGNATURE: Britni Grimaldo RN PATIENT NAME: Sally james DATE: June 13, 2020 TIME: 11:00 AM PAGER/CONTACT #: [phone] progress on 2020-05 PROGRESS HNO ID: [id number] Normal 06-12-2020 [place] Author: Nancy Abebe [facility] Service: General Surgery Medical Author Type: Resident Center Type: Progress Notes ([id number]) Filed: 06/12/2020 7:57 AM Note Text: Attestation signed by Mala Almendarez at 06/12/2020 9:28 PM Attending Note I personally saw and examined the patient. I reviewed the resident's note. I agree with the resident's assessment and plan with the maureen strong revisions and/or additions: Still with severe pain. Will hold DC today and poss dc [facility] Signature: Mala Almendarez MD Date: 06/12/2020 Time: 9:28 PM [facility] Progress Note SERVICE DATE: 06/12/2020 [facility] Service Pager: For questions or concerns Mon-Fri 6a-5p please page [phone]. After 5pm and on Weekends and Holidays, please page [phone]. SUBJECTIVE: C/o significant pain that prevents her [...] 06/11/206[address] - 06/12/2065806/12/20699 - 06/13/20 0659 Shift 1964-4477 9037-8004 8373-6946 24 Hour Total 8575-4605 4294-9370 7742-6124 24 Hour Total INTAKE PO 100 100 PO 100 100 IV 1900 1900 OR Crystalloid intake (mL) 1000 1000 Volume (mL) (lactated ringers infusion) 900 900 Shift Total 9134 636 0329 OUTPUT Urine 845 513 4581 Void (ml) 600 600 OR Urine Output 500 500 Urine Not Saved. 1 x 3 x 4 x Blood 50 50 Estimated Blood loss 50 50 Shift Total 150 585 0115 Weight (kg) 89.6 89.6 89.6 89.6 89.6 [...] care on PLAN OF CARE HNO ID: [id number] Normal 06-12-20 [facility] Author: Page Burgess (Finding Fastener) [place] ([address]) Service: Pharmacy Author Type: Pharmacist Type: Plan [...] from Discharge Medication Li st. Page Burgess, Finding Fastener June 12, 2020 10:36 AM Medication List [...] Your Medications These medications were sent to [facility] [address] [place] [address] Hours: Thursday-Thursday, 8am-6:30pm ? oxyCODONE IR 5 mg immediate release tablet phosphorous blood o n 2020-06-12 Phosphate [Mass/Vol] 3.4 2.7-4.8 mg/dL Normal 0 [facility] ([address]) Comment: Performed By: #### CBCD1 ### # [place] [address] magnesium blood on 2020-06-12 Magnesium [Mass/Vol] 1.5 1.7-2.3 mg/dL Low 0 [employer] [facility] (99792) Comment: Performed By: #### CBCD1 ### # [place] [address] hemogram on 2020-05 Erythrocyte distribution 13.2 11.7-14.4 % Normal 06-12 [employer] [facility] width (RBC) [Ratio] System (26611) Comment: Performed By: #### CBCD1 ### # [place] [address] Hematocrit (Bld) [Volume 32.9 34.1-44.9 % Low 06-12 [employer] fraction] System (00 000) Comment: Performed By: #### CBCD1 ### # [place] [address] Hemoglobin (Bld) [Mass/Vol] 10.5 11.2-15.7 g/dL Low [facility] (00 000) Comment: Performed By: #### CBCD1 ### # [place] [address] MCH (RBC) [Entitic mass] 29.2 25.6-32.2 pg Normal 06-12 [facility] (00 000) Comment: Performed By: #### CBCD1 ### # [address], [place] [address] MCHC (RBC) [Mass/Vol] 31.9 31.6-34.8 % Normal 06-12-20 20 [facility] (58794) Comment: Performed By: #### CBCD1 ### # [facility] [address] [place], [place] [address] MCV (RBC) [Entitic vol] 91.4 79.4-94.8 fl Normal 2019 [facility] (00 000) Comment: Performed By: #### CBCD1 ### # [facility] [address] [place] [address] Platelet mean volume (Bld) 11.5 9.4-12.3 fl Normal [facility] [Entitic vol] System (59823) Comment: Performed By: #### CBCD1 ### # [facility] [address] [place], [place] [address] Platelets (Bld) [#/Vol] 182 182-369 thou/cmm Normal 2019 [facility] (00 000) Comment: Performed By: #### CBCD1 ### # [facility] [address] [place], [place] [address] RBC (Bld) [#/Vol] 3.60 3.93-5.22 mil/cmm Low 06-12-2020 [facility] (61257) Comment: Performed By: #### CBCD1 ### # [facility] [address] [place], [place] [address] RDW SD 44.5 36.4-46.3 fl Normal 06-12-2020 [facility] (85299) Comment: Performed By: #### CBCD1 ### # [facility] [address] [place], [place] [address] WBC (Bld) [#/Vol] 7.04 3.98-10.04 thou/cmm Normal 06-12-2020 [facility] (00 000) Comment: Performed By: #### CBCD1 ### # [facility] [address] [place], [place] [address] case managem on 202 CASE MANAGEM HNO ID: [id number] Normal 06-12-20 [facility] Author: Britni (Rn) V[facility] Service: Care Management ([id number]) Author Type: Registered Nurse Type: Care Mgt [...] 12, 2020 TIME: 9:18 AM PAGER/CONTACT #: [phone] basic metabolic panel on 2020-06-12 Anion gap [Moles/Vol] 8 9-18 mmol/L Low 06-12-20 20 [facility] (41725) Comment: Performed By: #### CBCD1 ### # [facility] [address] [place], [place] [address] Calcium [Mass/Vol] 8.0 8.5-10.2 mg/dL Low 06-12-2020 [facility] (67936) Comment: Performed By: #### CBCD1 ### # [facility] [address] [place], [place] [address] Chloride [Moles/Vol] 104 97-105 mmol/L Normal 0 [facility] (57413) Comment: Performed By: #### CBCD1 ### # [facility] [address] [place], [place] [address] CO2 Blood 26 22-30 mmol/L Normal 06-12-2020 [facility] (82459) Comment: Performed By: #### CBCD1 ### # [facility] [address] [place], [place] [address] Creatinine [Mass/Vol] 0.87 0.58-0.96 mg/dL Normal 06-12-20 [facility] (00 000) Comment: Performed By: #### CBCD1 ### # [facility] [address] [place], [place] [address] Glucose [Mass/Vol] 83 74-99 mg/dL Normal 06-12-2020 [facility] (26961) Comment: Result Comment: The [place] Diabetes Association (ADA) provides guidance for cutoff [...] Standards of Medical Care in Diabetes 2016; [place] Diabetes Association. Diabetes Care. 2016;39(Suppl 1). Performed By: #### CBCD1 ### # [facility] [address] [place], [place] [address] Potassium [Moles/Vol] 3.4 3.7-5.1 mmol/L Low 06-12-20 20 [facility] (15060) Comment: Performed By: #### CBCD1 ### # [facility] [address] [place], [place] [address] Sodium [Moles/Vol] 138 136-144 mmol/L Normal 06-12-2020 [facility] (40468) Comment: Performed By: #### CBCD1 ### # [facility] [address] [place], [place] [address] Urea nitrogen [Mass/Vol] 6 7-21 mg/dL Low 06-12 [facility] (42139) Comment: Performed By: #### CBCD1 ### # [facility] [address] [place], [place] [address] type and screen on 2020-06-11 ABO group Nom (Bld) O Normal 06-11-2020 [facility] (39678) Comment: Performed By: #### CBCD1 ### # [place] [address] Comment See Below Normal 06-11-2020 [facility] (09781) Comment: Result Comment: Screen &/or Xmatch expires in 3 days at 12 midnight. Redraw patient at that time. Performed By: #### CBCD1 ### # [place] [address] RH Type Positive Normal 06-11-2020 [facility] (21283) Comment: Performed By: #### CBCD1 ### # [place] [address] surgical tissue exam on 2020-06-11 Surgical Tissue Exam Test performed at [facility] Normal 06-11-2020 [facility] [address] [place] [address] ([id number]) NAME: SALLY MCGREGOR REQUESTING: MALA ALMENDAREZ MD [...] are not see n on the specimen. Cartridge Loader sections are submitted in formalin in 4 cassettes. LETICIA/chadd VILLASEÑOR M.D., PATHOLOGIST (Electronic signature on file) Signed out: 06/13/2020 16:48 PRINTED: 06/13/2020 Page 1 of 1 Comment: Performed By: #### URIN2 ### # [place] [address] progress on 2020-05 PROGRESS HNO ID: [id number] Normal 06-11-2020 [place] Author: Kimmie Topetem General Service: General Surgery Medical Author Type: Resident Center Type: Progress Notes (42040) Filed: 06/11/2020 7:03 AM Note Text: Attestation [...] questions or concerns Mon-Fri 6a-5p please page [phone]. After 5pm and on Weekends and Holidays, please page [phone]. SUBJECTIVE: NAEON. Afebrile. Patient resting in bed [...] - 06/11/20 0606/11/20699 - 06/12/20 0659 Shift 8196-6830 3234-1560 1104-4987 24 Hour Total 8565-9041 3522-7943 6189-8621 24 Hour Total INTAKE PO 600 600 [...] questions or concerns Thu-Thu 6a-5p please page [phone]. After 5pm and on Weekends and Holidays, please page [phone] if in ICU or [phone] if on RNF. operative no on 202 OPERATIVE NO HNO ID: [id number] Normal 06-11-20 [facility] Author: Mala Eddy [facility] Service: General Surgery ([id number]) Author Type: Physician Type: Operative Report Filed: 06/11/2020 1:39 PM Note Text: [facility] - Operative Report SALLY MCGREGOR : 1980 AGE: 39. SEX: F PATIENT TYPE: I HOSP SVC: GENS LOCATION: [facility] ATTENDING PHYSICIAN: MALA ALMENDAREZ CSN NUMBER: [id number] DATE OF SURGERY/PROCEDURE: 06/11/2020 INCISION/PROCEDURE START TIME: 10:51 AM INCISION CLOSE/PROCEDURE END TIME: 11:47 AM PREOPERATIVE DIAGNOSIS: Symptomatic liver cyst. POSTOPERATIVE DIAGNOSIS: Symptomatic liver cyst. SURGEON: Mala Almendarez MD FRINGE MAKER: None. SURGERY/PROCEDURE: Laparoscopic partial right hepatic lobect [...] CLASS: 2, clean, contaminated. Mala Almendarez MD NSA:[id number] /[id number] nursing prog on NURSING PROG HNO ID: [id number] Normal 06-11-20 20 [facility] Author: Garo PickardRnJoao Jackson RN [facility] Service: ? ([id number]) Author Type: Registered Nurse Type: Nursing Progress Note Filed: 06/11/2020 6:25 PM Note Text: Nursing Progress Note Patient Name: Sally Mcgregor Patient Location: [place] [id number]- Patient refusing IV fluids, states we can restart them when she goes to bed. Informed surgery team. This note was completed by: Garo Jackson RN hemogram on 2020-05 Erythrocyte distribution 13.0 11.7-14.4 % Normal 06-11 [facility] width (RBC) [Ratio] System (32339) Comment: Performed By: #### CBCD1 ### # [facility] [address] [place] [id number] Hematocrit (Bld) [Volume 35.0 34.1-44.9 % Normal 06-11 [facility] fraction] System (00 000) Comment: Performed By: #### CBCD1 ### # [facility] [address] [place], [place] [address] Hemoglobin (Bld) 11.4 11.2-15.7 g/dL Normal 06-11-2020 [facility] [Mass/Vol] System (0 0000) Comment: Performed By: #### CBCD1 ### # [facility] [address] [place], [place] [address] MCH (RBC) [Entitic mass] 29.2 25.6-32.2 pg Normal 06-11 [facility] (00 000) Comment: Performed By: #### CBCD1 ### # [facility] [address] [place], [place] [address] MCHC (RBC) [Mass/Vol] 32.6 31.6-34.8 % Normal 06-11-20 20 [facility] (68938) Comment: Performed By: #### CBCD1 ### # [facility] [address] [place], [place] [address] MCV (RBC) [Entitic vol] 89.5 79.4-94.8 fl Normal 2019 [facility] (00 000) Comment: Performed By: #### CBCD1 ### # [facility] [address] [place], [place] [address] Platelet mean volume (Bld) 11.1 9.4-12.3 fl Normal [facility] [Entitic vol] System (87531) Comment: Performed By: #### CBCD1 ### # [facility] [address] [place], [place] [address] Platelets (Bld) [#/Vol] 229 182-369 thou/cmm Normal 2019 [facility] (00 000) Comment: Performed By: #### CBCD1 ### # [facility] [address] [place], [place] [address] RBC (Bld) [#/Vol] 3.91 3.93-5.22 mil/cmm Low 06-11-[address] [address] [facility] (48540) Comment: Performed By: #### CBCD1 ### # [facility] [address] [place], [place] [address] RDW SD 42.5 36.4-46.3 fl Normal 06-11-2020 [facility] (68949) Comment: Performed By: #### CBCD1 ### # [facility] [address] [place], [place] [address] WBC (Bld) [#/Vol] 6.54 3.98-10.04 thou/cmm Normal 06-11-2020 [facility] (00 000) Comment: Performed By: #### CBCD1 ### # [facility] [address] [place], [place] [address] case managem on CASE MANAGEM HNO ID: [id number] Normal 06-11-20 [facility] Author: Britni PickardRn) VIN Grimaldo [facility] Service: Care Management ([id number]) Author Type: Registered Nurse Type: Care Mgt [...] 11, 2020 TIME: 9:10 AM PAGER/CONTACT #: [phone] anes preop on 06-11 ANES PREOP HNO ID: [id number] Normal 06-11-2020 [facility] Service: Anesthesiology ([id number]) Author Type: Physician Type: Anesthesia PreOp Filed: [...] Benign liver cyst 05/24/[address] [facility] 11/2009 and 04/2010 showe 4 mm increase in size . No pain. No elevated LFTs on 03/11/2010. - Calculus of kidney 05/17/[address] Nicolas: Hospitalized age 20, and again later -- no procedures so far ([facility], [facility], [facility]) - Cancer (HCC) - Diverticulosis - Dysmenorrhea [...] Approx. 3 cigarettes daily-1 pack every w [place] Substance Use Topics - Alcohol use: Yes [...] INTRAVENOUS q 3 H PRN Nigel (Res) [place] 1 mg at 06/11/20 0536 - [MAR Hold due to Transfer] NaCl 0.9% iv infusion 125 mL/hr INTRAVENOUS CONTINUOUS Nigel (Res) [place] 125 mL/hr at 06/10/20 2248 1 25 [...] June 11, 2020 TIME: 9:49 AM CSN: [id number] anes post on 06-11 ANES POST HNO ID: [id number] Normal 06-11-2020 [facility] Author: Edwin Sesay [place] ([id number]) Service: Anesthesiology Author Type: Physician Type: Anesthesia [...] #: progress on 2020-05 PROGRESS HNO ID: [id number] Normal 06-10-2020 [facility] Author: Mer PickardRnJoao Bejarano RN [place] ([id number]) Service: Nursing Author Type: Registered Nurse Type: [...] resident Kimmie was notified. PROGRESS HNO ID: [id number] Normal 06-10-2020 [facility] Author: Kimmie Jennings [place] ([id number]) Service: General Surgery Author Type: Resident Type: [...] questions or concerns Mon-Fri 6a-5p please page [phone]. After 5pm and on Weekends and Holidays, please page [phone]. SUBJECTIVE: NAEON. Afebrile. Patient resting in bed [...] 0659 06/10/20 0700 - 06/11/20 0659 Shift 6940-4031 2726-6260 3996-4761 24 Hour Total 4972-1034 8207-0407 2703-7071 24 Hour Total INTAKE PO 488 739 1308 PO 855 082 5401 Shift Total 013 159 1454 OUTPUT Urine Urine Not Saved. 2 x [...] questions or concerns Thu-Thu 6a-5p please page [phone]. After 5pm and on Weekends and Holidays, please page [phone] if in ICU or [phone] if on RNF. PROGRESS HNO ID: [id number] Normal 06-10-2020 [facility] Medical Author: Mer PickardRnJoao Bejarano RN [place] ([id number]) Service: Nursing Author Type: Registered Nurse Type: [...] Phosphate [Mass/Vol] 4.2 2.7-4.8 mg/dL Normal 0 [facility] (26630) Comment: Performed By: #### CBCD1 ### # [address] [address] magnesium blood on 2020-06-10 Magnesium [Mass/Vol] 1.8 1.7-2.3 mg/dL Normal 0 [facility] (32425) Comment: Performed By: #### CBCD1 ### # [address] [address] coronavirus 2019 on 2020-06-10 COVID 19 Result OYSTER CULLER Negative CORNEG Normal 06-10-2020 [facility] (85451) Comment: Result Comment: Negative for COVID19 (SARS CoV2) by PCR. This test was developed and its performance characteristics determined by [facility]'s [facility] [place]. This test has bee n authorized by [...] issued on November 12, 2019. Performing Laboratory: [facility] [address] [place] [address] Performed By: #### CBCD1 ### # [address] [address] basic metabolic panel on 2020-06-10 Anion gap [Moles/Vol] 10 9-18 mmol/L Normal 06-10-20 20 [facility] (43797) Comment: Performed By: #### CBCD1 ### # [address] [address] Calcium [Mass/Vol] 9.2 8.5-10.2 mg/dL Normal 06-10-2020 [facility] (45540) Comment: Performed By: #### CBCD1 ### # [facility] [address] [place], [place] [address] Chloride [Moles/Vol] 102 97-105 mmol/L Normal 0 [facility] (85751) Comment: Performed By: #### CBCD1 ### # [facility] [address] [place], [place] [address] CO2 Blood 27 22-30 mmol/L Normal 06-10-2020 [facility] (24979) Comment: Performed By: #### CBCD1 ### # [facility] [address] [place], [place] [address] Creatinine [Mass/Vol] 0.90 0.58-0.96 mg/dL Normal 06-10-20 20 [facility] (00 000) Comment: Performed By: #### CBCD1 ### # [facility] [address] [place], [place] [address] Glucose [Mass/Vol] 105 74-99 mg/dL High 06-10-2020 [facility] (15015) Comment: Result Comment: The [place] Diabetes Association (ADA) provides guidance for cutoff [...] Standards of Medical Care in Diabetes 2016; [place] Diabetes Association. Diabetes Care. 2016;39(Suppl 1). Performed By: #### CBCD1 ### # [facility] [address] [place], [place] [address] Potassium [Moles/Vol] 3.7 3.7-5.1 mmol/L Normal 06-10-20 [facility] (00 000) Comment: Performed By: #### CBCD1 ### # [facility] [address] [place], [place] [address] Sodium [Moles/Vol] 139 136-144 mmol/L Normal 06-10-2020 [facility] (63736) Comment: Performed By: #### CBCD1 ### # [facility] [address] [place], [place] [address] Urea nitrogen [Mass/Vol] 8 7-21 mg/dL Normal 06-10 [facility] (46659) Comment: Performed By: #### CBCD1 ### # [facility] [address] [place] [id number] allied health on 03-06-27 ALLIED HNO ID: [id number] Normal 06-10-2020 Located within [facility] Author: Chaplain Suarez (Chaplain) General Service: Spiritual Care Medical Author Type: Portfolio Administrator Center Type: [facility] ([id number]) Filed: 06/10/2020 7:39 PM Note Text: SPIRITUALCARE Spiritual Care Visit- Brief Note Name: Sally Mcgregor Date: June 10, 2020 Notes: Pre-surgery Patient Nothing needed tonight. Portfolio Administrator Signature: Chaplain Erick To contact the Spiritual Care Department: Please call [phone] or Page the On-Call Portfolio Administrator [phone] Thank you for the opportunity to be of service. This is an electronically created document. IF PRINTED, PLEASE DO NOT REMOVE FROM THE CHART OR MODIFY AK INTED COPY. progress on 2020-05 PROGRESS HNO ID: [id number] Normal 06-09-2020 [place] Author: Kimmie Jennings General Service: General Surgery Medical Author Type: Resident Center Type: Progress Notes ([id number]) Filed: 06/09/2020 7:14 AM Note Text: Attestation [...] questions or concerns Thu-Thu 6a-5p please page [phone]. After 5pm and on Weekends and Holidays, please page [phone]. SUBJECTIVE: NAEON. Afebrile. Patient resting in bed [...] - 06/09/20 0606/09/20699 - 06/10/20 0659 Shift 1079-4607 9324-9740 5018-0806 24 Hour Total 9708-1542 1028-6572 4281-2213 24 Hour Total INTAKE Shift Total OUTPUT [...] (TYLENOL) 975 mg ORAL q 6 H AK N - oxyCODONE IR 5-10 mg tab(s) [...] Erythrocyte distribution 13.2 11.7-14.4 % Normal 06-09 [facility] width (RBC) [Ratio] System (86335) Comment: Performed By: #### GFR #### [address] [address] Hematocrit (Bld) [Volume 33.7 34.1-44.9 % Low 06-09 [facility]] System (00 000) Comment: Performed By: #### GFR #### [facility] [address] [place], [place] [address] Hemoglobin (Bld) [Mass/Vol] 10.6 11.2-15.7 g/dL Low [facility] (00 000) Comment: Performed By: #### GFR #### [place] [address] MCH (RBC) [Entitic mass] 28.8 25.6-32.2 pg Normal 06-09 [facility] (00 000) Comment: Performed By: #### GFR #### [place] [address] MCHC (RBC) [Mass/Vol] 31.5 31.6-34.8 % Low 06-09-20 20 [facility] (60461) Comment: Performed By: #### GFR #### [place] [address] MCV (RBC) [Entitic vol] 91.6 79.4-94.8 fl Normal 2019 [facility] (00 000) Comment: Performed By: #### GFR #### [place] [address] Platelet mean volume (Bld) 11.6 9.4-12.3 fl Normal [facility] [Entitic vol] System (68486) Comment: Performed By: #### GFR #### [place] [id number] Platelets (Bld) [#/Vol] 199 182-369 thou/cmm Normal 2019 [facility] (00 000) Comment: Performed By: #### GFR #### [place] [address] RBC (Bld) [#/Vol] 3.68 3.93-5.22 mil/cmm Low 06-09-2020 [facility] (89352) Comment: Performed By: #### GFR #### [place] [address] RDW SD 43.9 36.4-46.3 fl Normal 06-09-2020 [facility] (36209) Comment: Performed By: #### GFR #### [facility] [address] [place], [place] [address] WBC (Bld) [#/Vol] 6.47 3.98-10.04 thou/cmm Normal 06-09-2020 [facility] (00 000) Comment: Performed By: #### GFR #### [facility] [address] [place], [place] [address] basic metabolic panel on 2020-06-09 Anion gap [Moles/Vol] 11 9-18 mmol/L Normal 06-09-20 20 [facility] (44533) Comment: Performed By: #### GFR #### [facility] [address] [place], [place] [address] Calcium [Mass/Vol] 8.8 8.5-10.2 mg/dL Normal 06-09-2020 [facility] (95106) Comment: Performed By: #### GFR #### [facility] [address] [place], [place] [address] Chloride [Moles/Vol] 106 97-105 mmol/L High 0 [facility] (45846) Comment: Performed By: #### GFR #### [facility] [address] [place], [place] [address] CO2 Blood 24 22-30 mmol/L Normal 06-09-2020 [facility] (71266) Comment: Performed By: #### GFR #### [facility] [address] [place], [place] [address] Creatinine [Mass/Vol] 0.82 0.58-0.96 mg/dL Normal 06-09-20 20 [facility] (00 000) Comment: Performed By: #### GFR #### [facility] [address] [place], [place] [address] Glucose [Mass/Vol] 84 74-99 mg/dL Normal 06-09-2020 [facility] (55064) Comment: Result Comment: The [place] Diabetes Association (ADA) provides guidance for cutoff [...] Standards of Medical Care in Diabetes 2016; [place] Diabetes Association. Diabetes Care. 2016;39(Suppl 1). Performed By: #### GFR #### [facility] [address] [place], [place] [address] Potassium [Moles/Vol] 3.8 3.7-5.1 mmol/L Normal 06-09-20 [facility] (00 000) Comment: Performed By: #### GFR #### [address] [address] Sodium [Moles/Vol] 141 136-144 mmol/L Normal 06-09-2020 [facility] (53926) Comment: Performed By: #### GFR #### [address] [address] Urea nitrogen [Mass/Vol] 9 7-21 mg/dL Normal 06-09 [facility] (93025) Comment: Performed By: #### GFR #### [address] [address] protime on INR Coag (PPP) [Relative 1.07 0.90-1.30 {INR} Normal 06-08 [facility] time] System (00 000) Comment: Result Comment: Vitamin K An tagonist (VKA) Therapeutic Range: INR 2 to 3 (Target INR of 2.5) Note: For patients treated w ith VKA drugs, such as warfarin, the [place] College [employer] Chest Ph ysicians 2012 Guideline recommends a therapeutic INR range of 2 to 3 (target INR of 2.5). This recommendation includes high -risk patients with antiphospholipid syndrome with previous arter ial or venous thromboembolism, current-generation mechanica l or bioprosthetic aortic heart valve replacement. Note: Patients with welder railcar mechanic al aortic valve replacement and additional risk factors for thromboembolic events (atrial fibrillation, previous throm boembolism, LV dysfunction, hypercoagulable conditions) or an older generation mechanical AVR (i.e., ball in-Cage) or any mechanical MVR should have a INR therapeutic range of 2 .5 to 3.5 target INR of 3). Magdalene GH, et al. Chest 2012 ; 141:7S-47S Calderon FERNÁNDEZ et al. [facility] 20 17; 70: 252-289 Performed By: #### GFR #### [facility] [address] [place], [place] [address] PT Coag (PPP) [Time] 11.1 9.7-13.0 sec Normal 0 [facility] (02985) Comment: Performed By: #### GFR #### [address] [address] phosphorous blood o n 2020-06-08 Phosphate [Mass/Vol] 3.3 2.7-4.8 mg/dL Normal 0 [facility] (35753) Comment: Performed By: #### GFR #### [address] [address] nursing prog on NURSING PROG HNO ID: [id number] Normal 06-08-20 20 [facility] Author: Garo Jackson RN [facility] Service: ? ([id number]) Author Type: Registered Nurse Type: Nursing Progress Note Filed: 06/08/2020 10:56 AM Note Text: Nursing Progress Note Patient Name: Sally Mcgregor Patient Location: [address]/[id number] Spoke with Doctor Dick regarding IV contrast allergy and th e need for steroid prep. This note was completed by: Garo Jackson RN mri panc/james wo/w ivcon on 2020-06-08 MRI PANC/JAMES WO/W Final Report Normal 0 [facility] IVCON DATE OF EXAM: Jun 08 2020 6:[address] [place] [address] 0730 - MRI PANC/JAMES WO/W IVCON / ([id number]) PROCEDURE REASON: Liver lesion, >1cm, US indeterminate, [...] x 8.0 cm . 2. Normal MRCP. 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: PSC[employer] Transcribe Date/Time: Jun 08 2020 7:48P Dictated by : ALICE ALCARAZ MD This examination was interpreted and the report reviewed and electronically signed by: ALICE ALCARAZ MD on Jun 08 2020 8:42PM EST mri 3d post processing on 2020-06-08 MRI 3D POST Final Report Normal 06-08-2020 Gabriela barboza General PROCESSING DATE [facility]AM: Jun 08 [facility] POST PROCESSING / ([id number]) PROCEDURE REASON: Abd pain, chronic, intermittent Physician [...] x 8.0 cm . 2. Normal MRCP. 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: PSCAudrey Transcribe Date/Time: Jun 08 2020 7:48P Dictated by : ALICE ALCARAZ MD This examination was interpreted and the report reviewed and electronically signed by: ALICE ALCARAZ MD on Jun 08 2020 8:42PM EST magnesium blood on 2020-06-08 Magnesium [Mass/Vol] 2.0 1.7-2.3 mg/dL Normal 0 [facility] (71583) Comment: Performed By: #### LIP #### [place] [id number] lipase blood on Lipase Blood 31 16-61 U/L Normal 06-08-2020 [facility] (93487) Comment: Performed By: #### GFR #### [facility] [address] [place], [place] [address] history physical on 2020-06-08 HISTORY HNO ID: [id number] Normal 06-08-2020 [place] PHYSICAL Author: Chris Kurtz [facility] Service: General Surgery Medical Author Type: Resident Center Type: [facility] ([id number]) Filed: 06/08/2020 7:24 AM Note Text: Attestation signed by Mala Almendarez at 06/08/2020 7:09 PM Attending Note I personally saw and examined the patient. I reviewed the resident's note. I agree with the resident's assessment and plan with the [facility] wing revisions and/or additions: Admit for symptomatic hepatic cyst. Plan for cyst fenestrati on on Thursday. Signature: Mala Almendarez MD Date: 06/08/2020 Time: 7:09 PM HISTORY AND PHYSICAL EXAMINATION SERVICE DATE: 06/08/2020 SERVICE TIME: 7:12 AM Subjective CHIEF COMPLAINT: Abdominal Pain HPI: 39 year old female presents as a direct admission to [facility] with abdominal pain and a known history of hepatic cysts with rec urrent pancreatitis. Her last admission was for pancreatitis, in [facility] she had imaging showing increasing size [...] Benign liver cyst 05/24/[address] [facility] 11/2009 and 04/2010 showe 4 mm increase in size . No pain. No elevated LFTs on 03/11/2010. - Calculus of kidney 05/17/[address] Nicolas: Hospitalized age 20, and again later -- no procedures so far ([facility], most, [facility]) - Cancer (HCC) - Diverticulosis - Dysmenorrhea [...] TOTAL ABDOM HYSTERECTOMY 08/31/06 Hysterectomy, [facility] FAMILY HISTORY Problem Relation Age of Onset [...] Approx. 3 cigarettes daily-1 pack every w [place] Substance Use Topics - Alcohol use: Yes [...] in the last 72 hours. Invalid input(s): [facility] Diagnostic tests reviewed for today's visit: Most [...] in ICU or 2172 if on RNF. hepatic function panel on 2020-06-08 Albumin [Mass/Vol] 4.7 3.9-4.9 g/dL Normal 06-08-2020 [facility] (06829) Comment: Performed By: #### GFR #### [address] [address] ALP [Catalytic activity/Vol] 94 34-123 U/L Normal 0 06-08-2020 [facility] (00 000) Comment: Performed By: #### GFR #### [address] [address] ALT [Catalytic activity/Vol] 17 7-38 U/L Normal 0 06-08-2020 [facility] (00 000) Comment: Performed By: #### GFR #### [address] [address] AST [Catalytic activity/Vol] see below 13-35 Normal 0 06-08-2020 [facility] (00 000) Comment: Result Comment: Unable to as say. Specimen Hemolyzed Performed By: #### GFR #### [address] [address] Bilirubin [Mass/Vol] 0.3 0.2-1.3 mg/dL Normal 0 [facility] ([address]12) Comment: Performed By: #### GFR #### [facility] [address] [place], [place] [address] Bilirubin [Mass/Vol] see below 0.0-0.2 Normal 0 [facility] (00 000) Comment: Result Comment: Unable to as say. Specimen Hemolyzed Performed By: #### GFR #### [facility] [address] [place], [place] [address] Protein [Mass/Vol] 7.8 6.3-8.0 g/dL Normal 06-08-2020 [facility] (48704) Comment: Performed By: #### GFR #### [facility] [address] [place], [place] [address] hemogram on 2020-05 Erythrocyte distribution 13.3 11.7-14.4 % Normal 06-08 [facility] width (RBC) [Ratio] System (97439) Comment: Performed By: #### LIP #### [facility] [address] [place], [place] [address] Hematocrit (Bld) [Volume 38.1 34.1-44.9 % Normal 06-08 [place] [facility] fraction] System (00 000) Comment: Performed By: #### LIP #### [address] [address] Hemoglobin (Bld) 11.8 11.2-15.7 g/dL Normal 06-08-2020 [facility] [Mass/Vol] System (0 0000) Comment: Performed By: #### LIP #### [facility] [address] [place], [place] [address] MCH (RBC) [Entitic mass] 28.4 25.6-32.2 pg Normal 06-08 [facility] System (00 000) Comment: Performed By: #### LIP #### [address] [address] MCHC (RBC) [Mass/Vol] 31.0 31.6-34.8 % Low 06-08-20 20 [facility] (55698) Comment: Performed By: #### LIP #### [facility] [address] [place], [place] [address] MCV (RBC) [Entitic vol] 91.8 79.4-94.8 fl Normal 2019 [facility] (00 000) Comment: Performed By: #### LIP #### [facility] [address] [place] [id number] Platelet mean volume (Bld) 11.6 9.4-12.3 fl Normal [facility] [Entitic vol] System (04573) Comment: Performed By: #### LIP #### [facility] [address] [place] [id number] Platelets (Bld) [#/Vol] 230 182-369 thou/cmm Normal 2019 [facility] (00 000) Comment: Performed By: #### LIP #### [facility] [address] [place] [id number] RBC (Bld) [#/Vol] 4.15 3.93-5.22 mil/cmm Normal 06-08-2020 [facility] (00 000) Comment: Performed By: #### LIP #### [facility] [address] [place] [id number] RDW SD 44.9 36.4-46.3 fl Normal 06-08-2020 [facility] (33550) Comment: Performed By: #### LIP #### [facility] [address] [place], [place] [address] WBC (Bld) [#/Vol] 7.30 3.98-10.04 thou/cmm Normal 06-08-2020 [facility] (00 000) Comment: Performed By: #### LIP #### [facility] [address] [place] [id number] case mgt init asses on 2020-06-08 CASE MGT INIT HNO ID: [id number] Normal [facility] Author: Britni (Rn) [facility] Service: Care Management ([id number]) Author Type: Registered Nurse Type: Care Mgt Initial Assessment Filed: 06/08/2020 11:00 AM Note Text: CARE MANAGEMENT: ASSESSMENT AND DISCHARGE PLAN SERVICE DATE: June 08, 2020 SERVICE TIME: 10:50 AM PRIMARY CARE PHYSICIAN: Marcelino Mejia MD (Confirmed with patient) ADMISSION STATUS: Inpatient Needs Prior to Discharge: Pharmacy Bedside Delivery MEDICAL: [facility] MEDICAID 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 Stated Goals: To return home to life as it was Health Insurance: [facility] Issues Impacting Discharge Plan: Uncontrolled [...] completed Advance Directive: Current Advance Directive: None Motor And Chassis Inspector Attempted to Assist with AD Completion: Yes [...] Patient Currently Receive Any Community Services or [facility] Care?: None Equipment Prior to Admission: [...] Completely I feel financially burdened by my gjr-cw-wfvuho expenses for my prescription medication:: 0 - Disagree Completely Risk Score: 0 Patient is categorized as: Low risk < 2 Are you interested in bedside delivery of your medications? Yes Is Patient Psychosocially Complex?: No ASSESSMENT AND PLAN: Medical Needs: Medical Needs: Two or more chronic diseases Psychosocial Needs: Psychosocial Needs: None FREEDOM OF CHOICE EXPLAINED: [place] of Choice Given: No Reason Not Given: [...] 08, 2020 TIME: 10:50 AM PAGER/CONTACT #: [phone] basic metabolic panel on 2020-06-08 Anion gap [Moles/Vol] 11 9-18 mmol/L Normal 06-08-20 [facility] (15589) Comment: Performed By: #### LIP #### [address] [address] Calcium [Mass/Vol] 9.6 8.5-10.2 mg/dL Normal 06-08-2020 [facility] (22738) Comment: Performed By: #### LIP #### [address] [address] Chloride [Moles/Vol] 104 97-105 mmol/L Normal 0 [facility] (90503) Comment: Performed By: #### LIP #### [facility] [address] [place], [place] [address] CO2 Blood 25 22-30 mmol/L Normal 06-08-2020 [facility] (82066) Comment: Performed By: #### LIP #### [facility] [address] [place], [place] [address] Creatinine [Mass/Vol] 0.80 0.58-0.96 mg/dL Normal 06-08-20 [facility] (00 000) Comment: Performed By: #### LIP #### [facility] [address] [place], [place] [address] Glucose [Mass/Vol] 91 74-99 mg/dL Normal 06-08-2020 [facility] (26673) Comment: Result Comment: The [place] Diabetes Association (ADA) provides guidance for cutoff [...] Standards of Medical Care in Diabetes 2016; [place] Diabetes Association. Diabetes Care. 2016;39(Suppl 1). Performed By: #### LIP #### [facility] [address] [place], [place] [address] Potassium [Moles/Vol] 3.7 3.7-5.1 mmol/L Normal 06-08-20 20 [facility] (00 000) Comment: Performed By: #### LIP #### [facility] [address] [place], [place] [address] Sodium [Moles/Vol] 140 136-144 mmol/L Normal 06-08-2020 [facility] (07423) Comment: Performed By: #### LIP #### [facility] [address] [place], [place] [address] Urea nitrogen [Mass/Vol] 13 7-21 mg/dL Normal 06-08 [facility] (63846) Comment: Performed By: #### LIP #### [facility] [address] [place] [id number] allied health on 03-06-25 ALLIED HEALTH HNO ID: [id number] Normal 020 [facility] Author: Deepa (Rt) [facility] ([id number]) Service: Radiology Author Type: Sap Bobj Developer Type: Allied Health Filed: 06/08/2020 7:02 PM Note Text: Spoke to Garo (RN), in regards to her itching and scratching after the MRI was completed. Garo informed me that she had been itching an d scratching all day. Garo came down and gave the patient medication for the itching and took her back to the room. Kelley Noriega [facility] HEALTH HNO ID: [id number] Normal 020 [facility] Author: Deepa Mcintosh) [facility] ([id number]) Service: Radiology Author Type: Sap Bobj Developer Type: Allied Health Filed: 06/08/2020 5:56 PM [...] TIME: 5:53 PM ALLIED HEALTH HNO ID: [id number] Normal 020 [facility] Author: Deepa (Rt) [facility] ([id number]) Service: Radiology Author Type: Sap Bobj Developer Type: Allied Health Filed: 06/08/2020 4:21 PM Note Text: Called RN to get MRI order changed to w/wo per radiology pro tocol. Patient is not listed as allergy to gadolinium and creat is WNL. Mira l schedule STAT MRI as soon as order is changed activated ptt on 03-06-25 aPTT Coag (Bld) [Time] 30.5 23.0-32.4 sec Normal 020 [facility] (00 000) Comment: Result Comment: Unfractionat ed [...] AP TT reagent in use throughout the [facility]. Performed By: #### GFR #### [facility] [address] [place] [address] hosp on 2020-06-07 HOSP Patient:Sally Mcgregor Normal 05-16 [place] MRN: General Height:5' 1(1.549 m) Medical Weight:197 lb 9.6 oz (89.631 kg) Center Outpatient Medications as of 06/11/20: (61647) prazosin (MINIPRESS) 1 mg cap hyoscyamine (LEVSIN) [...] the resident's assessment and [facility] revisions and/or additions: Admit for symptomatic hepatic cyst. Plan for cyst fenestrati on on Thursday. Signature: Mala Almendarez MD Date: 06/08/2020 Time: 7:09 PM HISTORY AND PHYSICAL EXAMINATION SERVICE DATE: 06/08/2020 SERVICE TIME: 7:12 AM Subjective CHIEF COMPLAINT: Abdominal Pain HPI: 39 year old female presents as a direct adm ission to [facility] with abdominal pain and a known [...] Benign liver cyst 05/24/[address] [facility] 11/2009 and 04/2010 showe 4 mm increase in size . No pain. No elevated LFTs on 03/11/2010. - Calculus of kidney 05/17/[address] Nicolas: Hospitalized age 20, a nd again later -- no procedures so far ([facility], [facility], [address] [facility]) - Cancer (HCC) - Diverticulosis - Dysmenorrhea [...] TOTAL ABDOM HYSTERECTOMY 08/31/06 Hysterectomy, [facility] FAMILY HISTORY Problem Relation Age of Onset [...] Approx. 3 cigarettes daily-1 pack every w [place] Substance Use Topics - Alcohol use: Yes [...] questions or concerns Thu-Thu 6a-5p please page [phone]. After 5pm and on Weekends an d Holidays, please page [phone] if in ICU or [phone] if on RNF. 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 Stated Goals: To return home to life as it was Health Insurance: [facility] Issues Impacting Discharge Plan: Uncontrolled [...] completed Advance Directive: Current Advance Directive: None Motor And Chassis Inspector Attempted to Assist with AD Completion: Yes [...] Patient Currently Receive Any Community Services or [facility] e Care?: None Equipment Prior to [...] Completely I feel financially burdened by my dbs-sd-ebczpu expens es for my prescription medication:: 0 - Disagree Completely Risk Score: 0 Patient is categorized as: Low risk < 2 Are you interested in bedside delivery of your medications? Yes Is Patient Psychosocially Complex?: No ASSESSMENT AND PLAN: Medical Needs: Medical Needs: Two or more chronic diseases Psychosocial Needs: Psychosocial Needs: None FREEDOM OF CHOICE EXPLAINED: [place] of Choice Given: No Reason Not Given: [...] 08, 2020 TIME: 10:50 AM PAGER/CONTACT #: [phone] Jasmine Chavez, RN 06/08/2020 10:56 AM Signed Nursing Progress Note Patient Name: Sally Mcgregor Patient Location: [place] [address] [address] Spoke with Doctor Jennings regarding IV con [...] soon as order is changed RT Masoud, [employer] 06/08/2020 5:56 PM Signed Radiology Service Progress [...] questions or concerns Thu-Thu 6a-5p please page [phone]. After 5pm and on Weekends and Holidays, please page [phone]. SUBJECTIVE: NAEON. Afebrile. Patient resting in bed [...] 06/08/206[address] - 06/09/2065806/09/20699 - 06/10/20 0659 Shift 8391-0264 1510-9667 23 00-0659 24 Hour Total 6749-9451 5633-7673 7425-7222 24 Hour Total INTAKE Shift Total OUTPUT [...] (TYLENOL) 975 mg ORAL q 6 H [place] - oxyCODONE IR 5-10 mg tab(s) [...] questions or concerns Thu-Thu 6a-5p please page [phone]. After 5pm and on Weekends an d Holidays, please page [phone] if in ICU or [phone] if on RNF. Mer Bejarano, RN, RN [...] questions or concerns Mon-Fri 6a-5p please page [phone]. After 5pm and on Weekends and Holidays, please page [phone]. SUBJECTIVE: NAEON. Afebrile. Patient resting in bed [...] - 06/10/20 0606/10/20699 - 06/11/20 0659 Shift 1185-6964 7206-5688 23 00-0659 24 Hour Total 1875-5868 2484-1985 7084-0305 24 Hour Total INTAKE PO 577 381 0744 PO 414 377 5169 Shift Total 416 320 3783 OUTPUT Urine Urine Not Saved. 2 x [...] questions or concerns Thu-Thu 6a- please page [phone]. After 5pm and on Weekends an d [...] 2020 Notes: Pre-surgery Patient Nothing needed tonight. Portfolio Administrator Signature: Chaplain Erick To contact the Spiritual Care Department: Please call [phone] or Page the On-Call Portfolio Administrator at pag er [phone] Thank you for the opportunity to be of service. This is an electronically created document. IF PRINTED, PLEASE DO NOT REMOVE FROM THE CHART OR MODIFY AK INTED COPY. Kimmie Jennings DO 06/11/2020 7:03 AM Cosign Needed Elective General Surgery Progress Note SERVICE DATE: 06/11/2020 Elective General Surgery Service Pager: For questions or concerns Thu-Thu 6a- please page [phone]. After 5pm and on Weekends and Holidays, please page [phone]. SUBJECTIVE: NAEON. Afebrile. Patient resting in bed [...] 06/10/20699 - 06/11/2065806/11/20699 - 06/12/20 0659 Shift 5679-2498 8092-9303 23 00-0659 24 Hour Total 2221-3597 5871-5270 3504-5052 24 Hour Total INTAKE PO 600 600 [...] questions or concerns Thu-Thu 6a-5p please page [phone]. After 5pm and on Weekends an d Holidays, please page [phone] if in ICU or [phone] if on RNF. Britni Grimaldo RN, RN [...] 11, 2020 TIME: 9:10 AM PAGER/CONTACT #: [phone] Ruben Thompson MD 06/11/2020 9:51 AM Signed [...] Benign liver cyst 05/24/[address] [facility] 11/2009 and 04/2010 showe 4 mm increase in size . No pain. No elevated LFTs on 03/11/2010. - Calculus of kidney 05/17/[address] Nicolas: Hospitalized age 20, a nd again later -- no procedures so far ([facility], [facility], [address] [facility]) - Cancer (HCC) - Diverticulosis - Dysmenorrhea [...] TOTAL ABDOM HYSTERECTOMY 08/31/06 Hysterectomy, [facility] FAMILY HISTORY Problem Relation Age of Onset [...] Approx. 3 cigarettes daily-1 pack every w [place] Substance Use Topics - Alcohol use: Yes [...] INTRAVENOUS q 3 H PRN Nigel (Res) [place] 1 mg at 0536 - [MAR Hold [...] June 11, 2020 TIME: 9:49 AM CSN: [id number] Progress Notes ([facility]): Johnny Winn MD 06/06/2020 10:30 AM [...] ysts. All questions answered. MD Rebekah Cunningham [facility] 06/06/2020 10:53 AM Signed Patient is calling back with additional questions after speaking with Dr. Winn today. Please call patient. cnpn on 2020-06-06 CNPN Telephone (GSTNOR) Normal 06-06-2020 [place] [facility] SAMSALLY ([id number]) 1980 [facility] Date Time Provider Department ([id number]) 06/06/20 JOHNNY WINN GSTNOR During your visit [...] ysts. All questions answered. MD Rebekah Cunningham [facility] 06/06/2020 10:53 AM Signed Patient is [...] Order(s):CONSULT TO ALLERGY/IMMUNOLOGY [ 9001] Order #: [id number]: 1 FUTURE Prescriptions as of 06/06/2020 Sig: [...] 06/06/20 progress on 2020-05 PROGRESS HNO ID: [id number] Normal 06-05-2020 [facility] Author: Mala sosa ([id number]) Service: ? Author Type: Physician Type: Progress [...] MD progress on 2020-05 PROGRESS HNO ID: [id number] Normal 06-01-2020 [facility] Author: Branden PickardNetwork Navigator) Amalia Mata ([id number]) Service: ? Author Type: Wind Tunnel Technician Type: Progress Notes Filed: 06/01/2020 12:42 PM Note Text: Patient has follow up with next Thursday for Pancreatitis. progress on 2020-05 PROGRESS HNO ID: [id number] Normal 05-31-2020 [facility] Author: Marcelino Mejia [place] ([id number]) Service: ? 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 She has been seeing them for recurring pancreatit is and stomach issues. I have nothing further I can add to her care at this time. PROGRESS HNO ID: [id number] Normal 05-31-2020 [facility] Author: Branden (Network Navigator) Amalia [place] ([id number]) Service: ? Author Type: Wind Tunnel Technician Type: Progress Notes Filed: 05/31/2020 8:49 [...] appointment. Thank you SUMMARY: Pt discharged from [facility] on May 29, 2020 Admitted for: Intractable nausea and vomitting Contact made with patient: Yes Hi my name is ANDRE Graham and I am calling from the [facility] on behalf of your PCP, Marcelino [...] like to speak with a social work steam box hand to help give you support for any [...] I will send your request to a cup setter lockstitch who will contact and assist you with [...] out to patient to assist with scheduling RN CVOR: Patient Mira status is: Active account Thank [...] on 2020-05-31 CNPN Telephone (GSTNOR) Normal 05-31-2020 [place] [facility] SALLY MCGREGOR ([id number]) 1980 [facility] Date Time Provider Department ([id number]) 05/31/20 JOHNNY WINN GSTNOR During your visit today, we recorded the following informati on about you: Pierce Sunil Cates 05/31/2020 2:37 PM Signed Patient call, said she was doing ok yesterday, today having epigastric abdominal pain, nausea and vomiting. Has appt [facility] Dr. Almendarez next week. Advised ER [...] 05/31/20 progress on 2020-05 PROGRESS HNO ID: [id number] Normal 05-30-2020 [facility] Author: Allie (Network Navigator) Skyler Mata ([id number]) Service: ? Author Type: Wind Tunnel Technician Type: Progress Notes Filed: 05/31/2020 8:49 AM Note Text: TRANSITIONAL CARE MANAGEMENT (TCM) COMMUNITY MONITORING PROG BRITTANI Provider Action/FYI: Message left for patient. Attempting to schedule TCM appoint ment SUMMARY: Pt discharged from [place] on 05/29. Admitted for: intractable nausea and vomiting Contact made with patient: No - scheduled next outreach for next business day in the Track Pt Outreach section Outreach ended cnptoutreach on CNPTOUTREACH Patient Outreach (FAMPWS) Normal 0 05-30-2020 [place] SALLY Martinez ([id number]) 1980 [place] Date Time Provider Department ([id number]) 05/30/20 ALLIE CHOWDHURY (NETWORK NAVIGATOR)RAMA During your visit today, we recorded the following informati on about you: ANDRE Sorensen 05/31/2020 8:49 AM Signed TRANSITIONAL CARE MANAGEMENT (TCM) COMMUNITY MONITORING PROG BRITTANI Provider Action/FYI: Message left for patient. Attempting to schedule TCM appoint ment SUMMARY: Pt discharged from [place] on 05/29. Admitted for: intractable nausea and vomiting Contact made with patient: No - scheduled next o [facility] for next day in the Track Pt [...] appointment. Thank you SUMMARY: Pt discharged from [facility] on May 29, 2020 Admitted for: Intractable nausea and vomitting Contact made with patient: Yes Hi my name is ANDRE Graham and I am calling from the [facility] on behalf of your PCP, Marcelino [...] like to speak with a social work steam box hand to help give you support for any [...] I will send your request to a cup setter lockstitch who will contact and assist you with [...] out to patient to assist with scheduling RN CVOR: Patient Mira status is: Active account Thank [...] 05/31/2020 10:49 AM Signed Patient has a manager leasing and would work on getting her back [...] Assessed Reason for Visit: Transition Of Care [2914] Cmt: milka, perlita 05/29. initi al outreach [...] 05/31/20 progress on 2020-05 PROGRESS HNO ID: [id number] Normal 05-29-2020 [place] Author: Vickie Srivastava [facility] Service: Hospital Medicine Medical Author Type: Resident Center Type: Progress Notes ([id number]) Filed: 05/29/2020 2:51 PM Note Text: Attestation [...] PM: You may reach the House Medicine security intern currently assigned to this patient by jack mahoney their pager number on the treatment team (they will be assigned as the i ntern or resident). It is the last four digits in the phone number be ginning with ([phone]). We encourage the use of [employer] Secure Chat. SUBJECTIVE HPI: 39 year old F PMHx idiopathic pancreatitis, hepatic cys ts presenting to the ED with intractable nausea and vomiting as well as RU Q abdominal pain for the past 3 days. States that she called her GI doct or Dr. Winn and he told her to come into the ED. She has a scope [facility] for 05/[address] Winn. Was [...] care on PLAN OF CARE HNO ID: [id number] Normal 05-29-20 [facility] Author: Felix Foster (Pharmacist) Center ([id number]) Service: Pharmacy Author Type: Pharmacist Type: Plan of Care Filed: 05/29/2020 2:49 PM Note Text: MEDICATION RECONCILIATION Patient Name:Marlen Mcgregor : 1980 Reconciliation: Yes All TALENT ACQUISITION PARTNER medications addressed by LIP Additional comments: aggree with student note Allergies: ALLERGIES Allergen Reactions - Penicillins Rash - Cephalexin Itching - Chlorhexidine Rash Skin rash - Toradol [Ketorolac] Rash - Tramadol Rash - Asa [Salicylates] Other: See Comments ulcers - Contrast Dye [Iodin* Shortness of Breath - Ibuprofen GI Upset - Prednisone Other: See Comments makes agitated and mean Preferred Pharmacy: [facility] Current TALENT ACQUISITION PARTNER Medications: Prior to Admission medications as of 05/29/20 0928 Medication Sig Last Dose Taking prazosin (MINIPRESS) 1 mg cap Take 1 mg by mouth daily at [facility]. Yes hyoscyamine (LEVSIN) 0.125 mg tablet Take [...] 2:47 PM PLAN OF CARE HNO ID: [id number] [place] 05-29-20 [facility] Author: Felix Foster (Pharmacist) [place] ([id number]) Service: Pharmacy Author Type: Pharmacist Type: Plan [...] CORADO May 29, 2020 2:50 PM Pager: [phone] 05/29/2020 2:50 PM Medication List START taking [...] Your Medications These medications were sent to [facility]/pharmacy #[id number] [place] [address] - [address] [facility] [facility] [phone] [id number] [address] [facility] [address] ? oxyCODONE IR 5 mg immediate release tablet PLAN OF CARE HNO ID: [id number] [place] 05-29-20 [facility] Author: Felix Foster (Pharmacist) Center ([id number]) Service: Pharmacy Author Type: Pharmacist Type: Plan of Care Filed: 05/29/2020 2:47 PM Note Text: MEDICATION HISTORY Patient Name:Marlen Mcgregor : 1980 Source of history:Patient: Reliability of source: Appears re liable, clearly identified: Medication name, Medication frequency an d Timing of last dose and Pharmacy records: [id number] in [place], [place] [phone] Medication Nonadherence Identified: No barriers noted The above information represents the best possible medicatio n history: Yes Additional comments: Confirmed with patient and pharmacist hanna t [facility] Pharmacy - Recent changes to medications outpatient from Dr. Winn, patient did not start Sucralfate and Promethazine prior to admission and only took 1 dose of Hyoscyamine prior to admission [place] Medication List Adjustments: Medication Regimen Changes: Promethazine [...] makes agitated and mean Preferred Pharmacy: [facility] #[id number] phone [phone] Current TALENT ACQUISITION PARTNER Medications: Prior to Admission medications as of 05/29/20 0925 Medication Sig Last Dose Taking prazosin (MINIPRESS) 1 mg cap Take 1 mg by mouth daily at [facility]. Yes hyoscyamine (LEVSIN) 0.125 mg tablet [...] stomach, 1/2 hr before meal. Maggi Hernandez (Rock Splitter) May 29, 2020 9:14 AM mdrd gfr on 2020-05 GFR/1.73 sq M >60 >60mL/min/1.73m2 mL/min/{1.73_m2} Normal [place] [facility] among [facility] non-blacks MDRD (000 00) (S/P/Bld) [Vol rate/Area] Comment: Result Comment: If the patie nt is , multiply the result by 1.210. Performed By: #### GFR #### [address] [address] hemogram on 2020-05 Erythrocyte distribution 13.2 11.7-14.4 % Normal 05-29 [facility] width (RBC) [Ratio] System (28233) Comment: Performed By: #### LIP #### [address] [address] Hematocrit (Bld) [Volume 36.1 34.1-44.9 % Normal 05-29 [employer] fraction] System (00 000) Comment: Performed By: #### LIP #### [address] [address] Hemoglobin (Bld) 11.5 11.2-15.7 g/dL Normal 05-29-2020 [facility] [place] [Mass/Vol] System (0 0000) Comment: Performed By: #### LIP #### [address] [address] MCH (RBC) [Entitic mass] 29.0 25.6-32.2 pg Normal 05-29 [facility] (00 000) Comment: Performed By: #### LIP #### [address] [address] MCHC (RBC) [Mass/Vol] 31.9 31.6-34.8 % Normal 05-29-20 20 [facility] (38355) Comment: Performed By: #### LIP #### [facility] [address] [place], [place] [address] MCV (RBC) [Entitic vol] 90.9 79.4-94.8 fl Normal 2019 [facility] (00 000) Comment: Performed By: #### LIP #### [facility] [address] [place], [place] [address] Platelet mean volume (Bld) 10.9 9.4-12.3 fl Normal [facility] [Entitic vol] System (97436) Comment: Performed By: #### LIP #### [facility] [address] [place], [place] [address] Platelets (Bld) [#/Vol] 223 182-369 thou/cmm Normal 2019 [facility] (00 000) Comment: Performed By: #### LIP #### [facility] [address] [place], [place] [address] RBC (Bld) [#/Vol] 3.97 3.93-5.22 mil/cmm Normal 05-29-2020 [facility] (00 000) Comment: Performed By: #### LIP #### [facility] [address] [place], [place] [address] RDW SD 43.5 36.4-46.3 fl Normal 05-29-2020 [facility] (28807) Comment: Performed By: #### LIP #### [facility] [address] [place], [place] [address] WBC (Bld) [#/Vol] 5.88 3.98-10.04 thou/cmm Normal 05-29-2020 [facility] (00 000) Comment: Performed By: #### LIP #### [facility] [address] [place], [place] [address] consult on CONSULT HNO ID: [id number] Normal 05-29-2020 [facility] Author: Maria Luisa Joyner [facility] Service: Pain Management ([id number]) Author Type: Physician Type: Consults Filed: 05/29/2020 11:10 AM Note Text: SALLY MCGREGOR 39 year old PAIN CONSULTATION: Abdominal pain, history of idiopathic verdugo creatitis. 24 HOUR COMFORT MEDICATIONS: Tylenol x0 Benadryl 50 mg x 2 Phenergan 25 mg x 2 Oxycodone 10 mg x 3 Quetiapine 100 mg daily [place] prescription history Shows occasional use of opiates, [...] hepatic cysts, and no evidence of ac [place] pancreatitis with normal lipase, and CBC. At [...] (TYLENOL) 650 mg ORAL q 4 H [place] Johnny Winn - prazosin (MINIPRESS) 1 [...] Approx. 3 cigarettes daily-1 pack every w [place] Substance Use Topics - Alcohol use: Yes [...] gap [Moles/Vol] 11 9-18 mmol/L Normal 05-29-20 [facility] (62503) Comment: Performed By: #### LIP #### [facility] [address] [place], [place] [address] Calcium [Mass/Vol] 8.8 8.5-10.2 mg/dL Normal 05-29-2020 [facility] (39508) Comment: Performed By: #### LIP #### [facility] [address] [place], [place] [address] Chloride [Moles/Vol] 104 97-105 mmol/L Normal 0 [facility] (98983) Comment: Performed By: #### LIP #### [facility] [address] [place], [place] [address] CO2 Blood 23 22-30 mmol/L Normal 05-29-2020 [facility] (42500) Comment: Performed By: #### LIP #### [facility] [address] [place], [place] [address] Creatinine [Mass/Vol] 0.78 0.58-0.96 mg/dL Normal 05-29-20 [facility] (00 000) Comment: Performed By: #### LIP #### [facility] [address] [place], [place] [address] Glucose [Mass/Vol] 88 74-99 mg/dL Normal 05-29-2020 [facility] (89818) Comment: Result Comment: The [place] Diabetes Association (ADA) provides guidance for cutoff [...] Standards of Medical Care in Diabetes 2016; [place] Diabetes Association. Diabetes Care. 2016;39(Suppl 1). Performed By: #### LIP #### [facility] [address] [place], [place] [address] Potassium [Moles/Vol] 3.4 3.7-5.1 mmol/L Low 05-29-20 [facility] (56246) Comment: Performed By: #### LIP #### [facility] [address] [place] [address] Sodium [Moles/Vol] 138 136-144 mmol/L Normal 05-29-2020 [facility] (30332) Comment: Performed By: #### LIP #### [facility]. [facility] [address] [address] Urea nitrogen [Mass/Vol] 6 7-21 mg/dL Low 05-29 [facility] ([id number]) Comment: Performed By: #### LIP #### [facility] [address] [address] surgical tissue exam on 2020-05-28 Surgical Tissue Test performed at [facility] Normal 05-28-2020 [facility] Ex[facility] [address] [address] ([id number]) NAME: SALLY MCGREGOR REQUESTING: JOHNNY WINN MD [...] 1 Comment: Performed By: #### LIP #### [facility] [address] [address] pt ed on 2020-05-28 PT ED HNO ID: [id number] Normal 05-28-2020 [facility] Author: Flakita Ragland RN Center ([id number]) Service: Nursing Author Type: Registered Nurse Type: [...] Flakita Ragland RN PT ED HNO ID: [id number] [place] 05-28-2020 [facility] Author: Flakita Ragland RN [place] ([id number]) Service: Nursing Author Type: Registered Nurse Type: [...] RN progress on 2020-05 PROGRESS HNO ID: [id number] [place] 05-28-2020 [place] Author: Vickie [facility] Service: Hospital Medicine Medical Author Type: Resident Center Type: Progress Notes ([id number]) Filed: 05/28/2020 1:52 PM Note Text: Attestation [...] PM: You may reach the House Medicine security intern currently assigned to this patient by findin g their pager number on the treatment team (they will be assigned as the i ntern or resident). It is the last four digits in the phone number be ginning with ([phone]). We encourage the use of [employer] Secure Chat. SUBJECTIVE HPI: 39 year old F PMHx idiopathic pancreatitis, hepatic cys ts presenting to the ED with intractable nausea and vomiting as well as RU Q abdominal pain for the past 3 days. States that she called her GI doct or Dr. Winn and he told her to come into the ED. She has a [facility] ed for 05/[address] Winn. Was [...] operative no on OPERATIVE NO HNO ID: [id number] Normal 05-28-20 [facility] Author: [facility] Service: Gastroenterology ([id number]) Author Type: Physician Type: Operative Report Filed: 05/28/2020 1:07 PM Note Text: OPERATIVE/PROCEDURE REPORT LOG ID: [id number] Surgery/Procedure Date: 05/28/2020 Incision/Procedure Start Time: 12:32 PM Incision Close/Procedure End Time: 1:00 PM Surgeon(s)/Proceduralist(s) and Certified Physician'S Assistant(s): Surgeon(s) and Role: * [facility] - Primary No Additional Staff Procedure(s): [...] PPI. nursing prog on NURSING HNO ID: [id number] Normal 05-28-2020 [employer] Author: Rupal (Rn) [facility] [facility] Service: [...] Erythrocyte distribution 13.2 11.7-14.4 % Normal 05-28 [employer] [facility] width (RBC) [Ratio] System (76499) Comment: Performed By: #### LIP #### [facility] [address] [place], [place] [address] Hematocrit (Bld) [Volume 32.2 34.1-44.9 % Low 05-28 [employer] [facility]] System (00 000) Comment: Performed By: #### LIP #### [facility] [address] [place], [place] [address] Hemoglobin (Bld) [Mass/Vol] 10.1 11.2-15.7 g/dL Low [employer] [facility] (00 000) Comment: Performed By: #### LIP #### [facility] [address] [place], [place] [address] MCH (RBC) [Entitic mass] 28.5 25.6-32.2 pg Normal 05-28 [place] [facility] (00 000) Comment: Performed By: #### LIP #### [facility] [address] [place], [place] [address] MCHC (RBC) [Mass/Vol] 31.4 31.6-34.8 % Low 05-28-20 20 [employer] System (20390) Comment: Performed By: #### LIP #### [facility] [address] [place], [place] [address] MCV (RBC) [Entitic vol] 90.7 79.4-94.8 fl Normal 2019 [facility] (00 000) Comment: Performed By: #### LIP #### [facility] [address] [address] Platelet mean volume (Bld) 10.7 9.4-12.3 fl Normal [facility] [Entitic vol] System (40647) Comment: Performed By: #### LIP #### [facility] [address] [id number] Platelets (Bld) [#/Vol] 186 182-369 thou/cmm Normal 2019 [facility] (00 000) Comment: Performed By: #### LIP #### [facility] [address] [address] RBC (Bld) [#/Vol] 3.55 3.93-5.22 mil/cmm Low 05-28-2020 [facility] (73826) Comment: Performed By: #### LIP #### [facility] [address] [address] RDW SD 43.3 36.4-46.3 fl Normal 05-28-2020 [facility] (08259) Comment: Performed By: #### LIP #### [facility] [address] [id number] WBC (Bld) [#/Vol] 6.36 3.98-10.04 thou/cmm Normal 05-28-2020 [facility] (00 000) Comment: Performed By: #### LIP #### [facility] [address] [address] consult on CONSULT HNO ID: [id number] Normal 05-28-2020 [facility] Author: Ramone Albarado [facility] Service: Pain Management ([id number]) Author Type: Physician Type: Consults Filed: 05/28/2020 9:09 AM Note Text: SALLY MCGREGOR 39 year old PAIN CONSULTATION: Abdominal pain, history of idiopathic [place]du[place] creatitis. 24 HOUR COMFORT MEDICATIONS: Oxycodone 10 mg x 3 Quetiapine 100 mg daily [place] prescription history Shows occasional use of opiates, [...] hepatic cysts, and no evidence of ac [place] pancreatitis with normal lipase, and CBC. At this time, not experiencing any fever, chills, sweats, he matemesis, hematochezia, additional GI, , constitutional, pulmonary, or other symptoms. Current Facility-Administered Medications Medication Dose Route Frequency Provider Last Rate Last Dose - oxyCODONE IR 10 mg tab(s) (ROXICODONE) 10 mg ORAL q 6 H AK N Maggi (Res) MD Mark 10 mg [...] (TYLENOL) 650 mg ORAL q 4 H AK N Eduar (Res) Metry - hyoscyamine (LEVSIN) [...] Approx. 3 cigarettes daily-1 pack every w [place] Substance Use Topics - Alcohol use: Yes [...] gap [Moles/Vol] 8 9-18 mmol/L Low 05-28-20 [facility] (04791) Comment: Performed By: #### LIP #### [facility] [address] [address] Calcium [Mass/Vol] 7.2 8.5-10.2 mg/dL Low 05-28-2020 [facility] (95835) Comment: Performed By: #### LIP #### [facility] [address] [place], [place] [address] Chloride [Moles/Vol] 111 97-105 mmol/L High 0 [facility] (67606) Comment: Performed By: #### LIP #### [facility] [address] [place], [place] [address] CO2 Blood 22 22-30 mmol/L Normal 05-28-2020 [facility] (42252) Comment: Performed By: #### LIP #### [facility] [address] [place], [place] [address] Creatinine [Mass/Vol] 0.69 0.58-0.96 mg/dL Normal 05-28-20 [facility] (00 000) Comment: Performed By: #### LIP #### [facility] [address] [place], [place] [address] Glucose [Mass/Vol] 73 74-99 mg/dL Low 05-28-2020 [facility] (85932) Comment: Result Comment: The [place] Diabetes Association (ADA) provides guidance for cutoff [...] Standards of Medical Care in Diabetes 2016; [place] Diabetes Association. Diabetes Care. 2016;39(Suppl 1). Performed By: #### LIP #### [facility] [address] [place], [place] [address] Potassium [Moles/Vol] 2.9 3.7-5.1 mmol/L Low 05-28-20 [facility] (96610) Comment: Performed By: #### LIP #### [facility] [address] [place], [place] [address] Sodium [Moles/Vol] 141 136-144 mmol/L Normal 05-28-2020 [facility] (97731) Comment: Performed By: #### LIP #### [facility] [address] [place], [place] [address] Urea nitrogen [Mass/Vol] 5 7-21 mg/dL Low 05-28 [facility] (15909) Comment: Performed By: #### LIP #### [facility] [address] [place], [place] [address] anes preop on 05-28 ANES PREOP HNO ID: [id number] Normal 05-28-2020 [facility] Author: Delon [facility] Service: Anesthesiology ([id number]) Author Type: Physician Type: Anesthesia PreOp Filed: [...] Benign liver cyst 05/24/[address] [facility] 11/2009 and 04/2010 showe 4 mm increase in size . No pain. No elevated LFTs on 03/11/2010. - Calculus of kidney 05/17/[address] Nicolas: Hospitalized age 20, and again later -- no procedures so far ([facility], [facility], [address] [facility]) - Cancer (HCC) - Diverticulosis - Dysmenorrhea [...] TOTAL ABDOM HYSTERECTOMY 08/31/06 Hysterectomy, [facility] FAMILY HISTORY Problem Relation Age of Onset [...] Approx. 3 cigarettes daily-1 pack every w [place] Substance Use Topics - Alcohol use: Yes [...] within 48 hours o f Surgery/Procedure. SIGNATURE: eDlon Duenas DO PATIENT NAME: Sally caldwell DATE: May 28, 2020 TIME: 12:15 PM CSN: [id number] anes post on 0 -14 ANES POST HNO ID: [id number] Normal 05-28-2020 [facility] Author: Delon Deunas [place] ([id number]) Service: Anesthesiology Author Type: Physician Type: Anesthesia [...] 1001 progress on 2020-05 PROGRESS HNO ID: [id number] [place] 05-27-2020 [place] Author: Vickie Srivastava General Service: Hospital Medicine Medical Author Type: Resident Center Type: Progress Notes ([id number]) Filed: 05/27/2020 4:19 PM Note Text: Attestation [...] PM: You may reach the House Medicine security intern currently assigned to this patient by findin g their pager number on the treatment team (they will be assigned as the i ntern or resident). It is the last four digits in the phone number be ginning with ([phone]). We encourage the use of [employer] Secure Chat. SUBJECTIVE HPI: 39 year old F PMHx idiopathic pancreatitis, hepatic cys ts presenting to the ED with intractable nausea and vomiting as well as RU Q abdominal pain for the past 3 days. States that she called her GI doct or Dr. Winn and he told her to come into the ED. She has a [facility] for 05/[address] Winn. Was [...] DAILY 05/25/201935 -- 05/25/201944 pneumatic compression stockings (ks,sc) VTE Prophylaxis: VTE prophylaxis appropriate GI Prophylaxis: Indicated due to chronic acid suppression th erapy as an outpatient Telemetry: no Disposition: Home Code Status: Not on file Plan of care discussed with: Provider, RN, Patient SIGNATURE: Vickie Srivastava MD PATIENT NAME: Sally shannon DATE: May 27, 2020 TIME: 1:53 PM plan of care on PLAN OF CARE HNO ID: [id number] Normal 05-27-20 [facility] Author: Joe Romero) [facility] Service: Gastroenterology ([id number]) Author Type: Physician Certified Physician'S Assistant Type: Plan of Care Filed: 05/27/2020 1:17 [...] (TYLENOL) 650 mg ORAL q 4 H AK N - oxyCODONE IR 10 mg tab(s) (ROXICODONE) 10 mg ORAL q 6 H AK N Objective PHYSICAL EXAM: VITALS:BP 119/74 Pulse [...] 27, 2020 TIME: 1:15 PM PAGER/CONTACT #: Central Supply Manager Pager hemogram on 2020-05 Erythrocyte distribution 13.3 11.7-14.4 % Normal 05-27 [employer] width (RBC) [Ratio] System (70700) Comment: Performed By: #### LIP #### [facility] [address] [place], [place] [address] Hematocrit (Bld) [Volume 35.9 34.1-44.9 % Normal 05-27 [employer] fraction] System (00 000) Comment: Performed By: #### LIP #### [facility] [address] [place], [place] [address] Hemoglobin (Bld) 11.3 11.2-15.7 g/dL Normal 05-27-2020 [employer] [facility] [Mass/Vol] System (0 0000) Comment: Performed By: #### LIP #### [facility] [address] [place], [place] [address] MCH (RBC) [Entitic mass] 29.1 25.6-32.2 pg Normal 05-27 [facility] (00 000) Comment: Performed By: #### LIP #### [facility] [address] [place], [place] [address] MCHC (RBC) [Mass/Vol] 31.5 31.6-34.8 % Low 05-27-20 20 [facility] (11399) Comment: Performed By: #### LIP #### [address] [address] MCV (RBC) [Entitic vol] 92.5 79.4-94.8 fl Normal 2019 [facility] (00 000) Comment: Performed By: #### LIP #### [facility] [address] [place], [place] [address] Platelet mean volume (Bld) 10.6 9.4-12.3 fl Normal [facility] [Entitic vol] System (47768) Comment: Performed By: #### LIP #### [facility] [address] [place], [place] [address] Platelets (Bld) [#/Vol] 197 182-369 thou/cmm Normal 2019 [facility] (00 000) Comment: Performed By: #### LIP #### [facility] [address] [place] [id number] RBC (Bld) [#/Vol] 3.88 3.93-5.22 mil/cmm Low 05-27-2020 [facility] (05547) Comment: Performed By: #### LIP #### [facility] [address] [address] RDW SD 44.6 36.4-46.3 fl Normal 05-27-2020 [facility] (82909) Comment: Performed By: #### LIP #### [facility] [address] [place], [place] [address] WBC (Bld) [#/Vol] 6.15 3.98-10.04 thou/cmm Normal 05-27-2020 [facility] (00 000) Comment: Performed By: #### LIP #### [facility] [address] [id number] basic metabolic panel on 2020-05-27 Anion gap [Moles/Vol] 10 9-18 mmol/L Normal 05-27-20 [facility] (40928) Comment: Performed By: #### LIP #### [facility] [address] [id number] Calcium [Mass/Vol] 8.6 8.5-10.2 mg/dL Normal 05-27-2020 [facility] (67167) Comment: Performed By: #### LIP #### [facility] [address] [id number] Chloride [Moles/Vol] 106 97-105 mmol/L High 0 [facility] (99511) Comment: Performed By: #### LIP #### [facility] [address] [place], [place] [address] CO2 Blood 24 22-30 mmol/L Normal 05-27-2020 [facility] (08285) Comment: Performed By: #### LIP #### [facility] [address] [place], [place] [address] Creatinine [Mass/Vol] 0.87 0.58-0.96 mg/dL Normal 05-27-20 [facility] (00 000) Comment: Performed By: #### LIP #### [facility] [address] [place], [place] [address] Glucose [Mass/Vol] 82 74-99 mg/dL Normal 05-27-2020 [facility] (23846) Comment: Result Comment: The [place] Diabetes Association (ADA) provides guidance for cutoff [...] Standards of Medical Care in Diabetes 2016; [place] Diabetes Association. Diabetes Care. 2016;39(Suppl 1). Performed By: #### LIP #### [facility] [address] [place], [place] [address] Potassium [Moles/Vol] 3.5 3.7-5.1 mmol/L Low 05-27-20 20 [facility] (05364) Comment: Performed By: #### LIP #### [facility] [address] [place], [place] [address] Sodium [Moles/Vol] 140 136-144 mmol/L Normal 05-27-2020 [facility] (00939) Comment: Performed By: #### LIP #### [facility] [address] [place], [place] [address] Urea nitrogen [Mass/Vol] 7 7-21 mg/dL Normal 05-27 [facility] (70537) Comment: Performed By: #### LIP #### [facility] [address] [place], [place] [address] progress on 2020-05 PROGRESS HNO ID: [id number] Normal 05-26-2020 [place] Author: Vickie Srivastava [facility] Service: Hospital Medicine Medical Author Type: Resident Center Type: Progress Notes ([id number]) Filed: 05/26/2020 2:11 PM Note Text: Attestation signed by Oh Arreaga at 05/26/2020 2:23 PM Attending Note I personally saw and examined the patient on 05/26/20. I rev iewed the resident's note. I agree with the resident's assessment and plan unless otherwise noted. Signature: Oh Arreaga DO Date: 05/26/2020 Time: 2:23 PM Pager: [phone] HOUSE MEDICINE SERVICE PROGRESS NOTE SERVICE DATE: May 26, 2020 SERVICE TIME: 1:53 PM NIGHT AND WEEKEND COVERAGE: From 6 AM to 5 PM: You may reach the House Medicine security intern currently assigned to this patient by findin g their pager number on the treatment team (they will be assigned as the i ntern or resident). It is the last four digits in the phone number be ginning with ([phone]). We encourage the use of [employer] Secure Chat. SUBJECTIVE HPI: 39 year old F PMHx idiopathic pancreatitis, hepatic cys ts presenting to the ED with intractable nausea and vomiting as well as RU Q abdominal pain for the past 3 days. States that she called her GI doct or Dr. Winn and he told her to come into the ED. She has a scope [facility] for 05/[address] Winn. Was [...] 05/25/20 193 -- 05/25/201944 pneumatic compression stockings (ks,sc) VTE Prophylaxis: VTE prophylaxis appropriate GI Prophylaxis: Indicated due to chronic acid suppression th erapy as an outpatient Telemetry: no Disposition: Home Code Status: Not on file Plan of care discussed with: Provider, RN, Patient SIGNATURE: Vickie Srivastava MD PATIENT NAME: Sally shannon DATE: May 26, 2020 TIME: 1:53 PM hemogram on 2020-05 Erythrocyte distribution 13.3 11.7-14.4 % Normal 05-26 [place] [facility] width (RBC) [Ratio] System (36017) Comment: Performed By: #### CBC1 #### [address] [address] Hematocrit (Bld) [Volume 33.7 34.1-44.9 % Low 05-26 [place] [facility] fraction] System (00 000) Comment: Performed By: #### CBC1 #### [address] [address] Hemoglobin (Bld) [Mass/Vol] 10.8 11.2-15.7 g/dL Low [facility] (00 000) Comment: Performed By: #### CBC1 #### [facility] [address] [place], [place] [address] MCH (RBC) [Entitic mass] 29.3 25.6-32.2 pg Normal 05-26 [facility] (00 000) Comment: Performed By: #### CBC1 #### [facility] [address] [place], [place] [address] MCHC (RBC) [Mass/Vol] 32.0 31.6-34.8 % Normal 05-26-20 20 [facility] (43529) Comment: Performed By: #### CBC1 #### [facility] [address] [place], [place] [address] MCV (RBC) [Entitic vol] 91.3 79.4-94.8 fl Normal 2019 [facility] (00 000) Comment: Performed By: #### CBC1 #### [facility] [address] [place], [place] [address] Platelet mean volume (Bld) 10.8 9.4-12.3 fl Normal [facility] [Entitic vol] System (23328) Comment: Performed By: #### CBC1 #### [facility] [address] [place], [place] [address] Platelets (Bld) [#/Vol] 226 182-369 thou/cmm Normal 2019 [facility] (00 000) Comment: Performed By: #### CBC1 #### [facility] [address] [place], [place] [address] RBC (Bld) [#/Vol] 3.69 3.93-5.22 mil/cmm Low 05-26-2020 [facility] (45762) Comment: Performed By: #### CBC1 #### [facility] [address] [place], [place] [address] RDW SD 44.3 36.4-46.3 fl Normal 05-26-2020 [facility] (87373) Comment: Performed By: #### CBC1 #### [facility] [address] [place], [place] [address] WBC (Bld) [#/Vol] 9.78 3.98-10.04 thou/cmm Normal 05-26-2020 [facility] (00 000) Comment: Performed By: #### CBC1 #### [facility] [address] [place], [place] [address] coronavirus 2019 on 2020-05-26 COVID 19 Result OYSTER CULLER Negative CORNESonya Normal 05-26-2020 [facility] (59604) Comment: Result Comment: Negative for COVID19 (SARS CoV2) by PCR. This test was developed and its performance characteristics determined by [facility] [place]. This test has bee n authorized by [...] issued on November 12, 2019. Performing Laboratory: [facility] [address] [place] [address] Performed By: #### CD19X ### # [address] [address] consult on CONSULT HNO ID: [id number] Normal 05-26-2020 [facility] Author: Joe Romero) [facility] Service: Gastroenterology (71271) Author Type: Physician Certified Physician'S Assistant Type: Consults Filed: 05/26/2020 11:22 AM Note [...] Benign liver cyst 05/24/[address] [facility] 11/2009 and 04/2010 showe 4 mm increase in size . No pain. No elevated LFTs on 03/11/2010. - Calculus of kidney 05/17/[address] Nicolas: Hospitalized age 20, and again later -- no procedures so far ([facility], [facility], [address] [facility]) - Cancer (HCC) - Diverticulosis - Dysmenorrhea [...] TOTAL ABDOM HYSTERECTOMY 08/31/06 Hysterectomy, [facility] FAMILY HISTORY Problem Relation Age of Onset [...] Approx. 3 cigarettes daily-1 pack every w [place] Substance Use Topics - Alcohol use: Yes [...] (TYLENOL) 650 mg ORAL q 4 H AK N ALLERGIES Allergen Reactions - Penicillins Rash [...] 26, 2020 TIME: 11:10 AM PAGER/CONTACT #: [phone] After 3PM please use on-call paging system basic metabolic panel on 2020-05-26 Anion gap [Moles/Vol] 9 9-18 mmol/L Normal 05-26-20 20 [facility] (72895) Comment: Performed By: #### BMP #### [facility] [address] [place], [place] [address] Calcium [Mass/Vol] 9.0 8.5-10.2 mg/dL Normal 05-26-2020 [facility] (72320) Comment: Performed By: #### BMP #### [facility] [address] [place], [place] [address] Chloride [Moles/Vol] 104 97-105 mmol/L Normal 0 [facility] (75840) Comment: Performed By: #### BMP #### [facility] [address] [place], [place] [address] CO2 Blood 25 22-30 mmol/L Normal 05-26-2020 [facility] (25571) Comment: Performed By: #### BMP #### [facility] [address] [place], [place] [address] Creatinine [Mass/Vol] 0.86 0.58-0.96 mg/dL Normal 05-26-20 20 [facility] (00 000) Comment: Performed By: #### BMP #### [facility] [address] [place], [place] [address] Glucose [Mass/Vol] 87 74-99 mg/dL Normal 05-26-2020 [facility] (52141) Comment: Result Comment: The [place] Diabetes Association (ADA) provides guidance for cutoff [...] Standards of Medical Care in Diabetes 2016; [place] Diabetes Association. Diabetes Care. 2016;39(Suppl 1). Performed By: #### BMP #### [facility] [address] [place], [place] [address] Potassium [Moles/Vol] 3.5 3.7-5.1 mmol/L Low 05-26-20 20 [facility] (76929) Comment: Performed By: #### BMP #### [facility] [address] [place], [place] [address] Sodium [Moles/Vol] 138 136-144 mmol/L Normal 05-26-2020 [facility] (21223) Comment: Performed By: #### BMP #### [address] [address] Urea nitrogen [Mass/Vol] 9 7-21 mg/dL Normal 05-26 [facility] (36442) Comment: Performed By: #### BMP #### [address] [address] urine drug screen o n 2020-05-25 Urine Alcohol <11 0-11 Normal 05-25-2020 [facility] (52284) Comment: Performed By: #### UDRG3 ### # [address] [address] Urine Amphetamine NEGATIVE NEGATIVE Normal 05-25-2020 [facility] (76853) Comment: Performed By: #### UDRG3 ### # [address] [address] Urine Barbiturates NEGATIVE NEGATIVE Normal 05-25-2020 [facility] (11419) Comment: Performed By: #### UDRG3 ### # [address] [address] Urine Benzodiazepine NEGATIVE NEGATIVE Normal 0 [facility] (00 000) Comment: Performed By: #### UDRG3 ### # [address] [address] Urine Cocaine Metab NEGATIVE NEGATIVE Normal 05-25-2020 [facility] (83966) Comment: Performed By: #### UDRG3 ### # [address] [address] Urine Opiates see below NEGATIVE Abnormal 05-25-2020 [facility] (12052) Comment: Result Comment: PRESUMPTIVE POSITIVE Performed By: #### UDRG3 ### # [facility] [address] [place], [place] [address] Urine Oxycodone NEGATIVE NEGATIVE Normal 05-25-2020 [facility] (46244) Comment: Performed By: #### UDRG3 ### # [facility] [address] [place], [place] [address] Urine PCP NEGATIVE NEGATIVE Normal 05-25-2020 [facility] (13062) Comment: Result Comment: Test Cutoff Unit Amphetamines 1000 ng/mL Barbiturates 200 ng/mL Benzodiazepines 200 ng/mL Cannabinoids 50 ng/mL Cocaine 300 ng/mL Opiates 300 ng/mL Oxycodone 100 ng/mL Phencyclidine 25 ng/mL Reference Range: Negative at cutoff threshold Immunoassay screen only. Setter Automatic Spinning Lathe ss reactivity with other substances can occur [...] the same specimen through the laboratory at ([phone]) if contact ed within 48 hours of initial 1. Substance Abuse and [facility] (2012). Clini sam Drug Testing in Primary Care Technical Assistance Publica tion Series 32. Department of Health and Human Services, [place], p.10. Performed By: #### UDRG3 ### # [facility] [address] [place], [place] [address] Urine THC NEGATIVE NEGATIVE Normal 05-25-2020 [facility] (21999) Comment: Performed By: #### UDRG3 ### # [facility] [address] [place], [place] [address] urinalysis routine on 2020-05-25 RBC LM.HPF (Urine sed) 0.0-3 0.0-5.0 Normal 020 [facility] [#/Area] System (00 000) Comment: Performed By: #### URIN2 ### # [facility] [address] [place], [place] [address] Bacteria LM.HPF (Urine sed) NONE None Normal [facility] [#/Area] (63038) Comment: Performed By: #### URIN2 ### # [facility] [address] [place], [place] [address] Ep Cells Urine 21.5 0.0-5.0 /hpf High 05-25-2020 [facility] (48382) Comment: Performed By: #### URIN2 ### # [facility] [address] [place], [place] [address] Hyaline Cast 0.0 0.0-1.0 /lpf Normal 05-25-2020 [facility] (47304) Comment: Performed By: #### URIN2 ### # [facility] [address] [place], [place] [address] WBC LM.HPF (Urine sed) 2.9 0.0-5.0 /hpf Normal 020 [facility] [#/Area] System (00 000) Comment: Performed By: #### URIN2 ### # [facility] [address] [place], [place] [address] Appearance (U) CLOUDY Normal 05-25-2020 [facility] (35521) Comment: Performed By: #### URIN2 ### # [facility] [address] [place], [place] [address] Bilirubin (U) NEGATIVE Negative mg/dL Normal 05-25-2020 [facility] [Mass/Vol] System (0 0000) Comment: Performed By: #### URIN2 ### # [facility] [address] [place], [place] [address] Color (U) YELLOW Normal 05-25-2020 [facility] (52755) Comment: Performed By: #### URIN2 ### # [facility] [address] [place], [place] [address] Glucose Ql (U) NEGATIVE Negative Normal 05-25-2020 [facility] (76734) Comment: Performed By: #### URIN2 ### # [facility] [address] [place], [place] [address] Hemoglobin,Urine NEGATIVE Negative Normal 05-25-2020 [facility] (66513) Comment: Performed By: #### URIN2 ### # [facility] [address] [place], [place] [address] Ketone Urine NEGATIVE Negative Normal 05-25-2020 [facility] (56502) Comment: Performed By: #### URIN2 ### # [facility] [address] [place], [place] [address] Leukocytes Esterase NEGATIVE Negative Normal 05-25-2020 [facility] (86607) Comment: Performed By: #### URIN2 ### # [facility] [address] [place], [place] [address] Nitrites Urine NEGATIVE Negative Normal 05-25-2020 [facility] (06219) Comment: Performed By: #### URIN2 ### # [address] [address] pH (U) 5.5 5.0-8.0 [pH] Normal 05-25-2020 [facility] (07847) Comment: Performed By: #### URIN2 ### # [facility] [address] [place], [place] [address] Protein (U) [Mass/Vol] NEGATIVE Negative mg/dL Normal 020 [facility] (00 000) Comment: Performed By: #### URIN2 ### # [facility] [address] [place], [place] [address] Specific [place], Ur 1.024 1.005-1.030 Normal 020 [facility] (00 000) Comment: Performed By: #### URIN2 ### # [facility] [address] [place], [place] [address] Urobilinogen,Ur 0.2 0.2-1.0 EU/dL Normal 05-25-2020 [facility] (07245) Comment: Performed By: #### URIN2 ### # [facility] [address] [place], [place] [address] nursing prog on 202 NURSING PROG HNO ID: [id number] Normal 05-25-20 [facility] Author: Eleanor (Rn) VIN Parrish [place] ([id number]) Service: ? Author Type: Registered Nurse Type: [...] Lipase Blood 25 16-61 U/L Normal 05-25-2020 [facility] (86344) Comment: Performed By: #### LIP #### [place] [address] hosp on 2020-05-25 HOSP Patient:Sally Mcgregor Normal 05-15 [place] MRN: General Height:5' 1(1.549 m) Medical Weight:200 lb 6.4 oz (90.901 kg) Center Outpatient Medications as of 05/28/20: (73054) hyoscyamine (LEVSIN) 0.125 mg tablet sucralfate (CARAFATE) [...] 32.2 % 05/28/2020 44.9 34.1 Progress Notes ([facility]): Pierec Barber Ma 05/25/2020 4:24 PM Signed Tried [...] since Thursday night. Patient was seen at [facility] on Thursday night where she was given fluids, told her labs looked fine and was discharged home. Sameer cheney follows with Dr. Winn for GI as she has a 9 cm cyst in her liver and history of pancreatitis . Patient is scheduled for endoscopy and ultrasound on . She states that Dr. Winn told her to come to [facility] ED for specific type of imaging [...] v Family history: of suicide, attempts, or Dewitt 1 psychiatri c disorders requiring hospitalization v Precipitants/Stressors/Interpersonal: triggering events le ading to humiliation, shame or despair (e.g; loss of relationship, fi nancial or Health status-real or antici pated). Ongoing medical illness (zohreh. 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 Intoxication. Family turmoil/chaos. History of Physical or sexual abuse. Social isolation. v Change in treatment: discharge from psychiatric hospital, provider or treatment change v Access to firearms 2.??? PROTECTIVE FACTORS pro tective factors, even if present, may not counteract significant acute risk v Internal: ability to cope with stress, sabianist beliefs, frustration tolerance v External: responsibility to [...] Benign liver cyst 05/24/[address] [facility] 11/2009 and 04/2010 showe 4 mm increase in size . No pain. No elevated LFTs on 03/11/2010. - Calculus of kidney 05/17/[address] Nicolas: Hospitalized age 20, a nd again later -- no procedures so far ([facility], [facility], [address] [facility]) - Cancer (HCC) - Diverticulosis - Dysmenorrhea [...] TOTAL ABDOM HYSTERECTOMY 08/31/06 Hysterectomy, [facility] FAMILY HISTORY Problem Relation Age of Onset [...] Approx. 3 cigarettes daily-1 pack every w [place] Substance and Sexual Activity - Alcohol use: [...] PM: You may reach the House Medicine security intern currently assigned to this patien t by finding their pager number on the treatment team (they will be assigned as the security intern or resident). It is the last four digits in the phone num alyson beginning with ([phone]). We encourage the use of [employer] Secure Chat. PCP: Marcelino Mejia MD Admitting Attending: No admitting provider for patient sundar sanyd. SUBJECTIVE Chief Complaint: Intractable nausea and vomiting [...] Benign liver cyst 05/24/[address] [facility] 11/2009 and 04/2010 showe 4 mm increase in size . No pain. No elevated LFTs on 03/11/2010. - Calculus of kidney 05/17/[address] Nicolas: Hospitalized age 20, a nd again later -- no procedures so far ([facility], [facility], [address] [facility]) - Cancer (HCC) - Diverticulosis - Dysmenorrhea [...] Approx. 3 cigarettes daily-1 pack every w [place] Substance Use Topics - Alcohol use: Yes [...] Benign liver cyst 05/24/[address] [facility] 11/2009 and 04/2010 showe 4 mm increase in size . No pain. No elevated LFTs on 03/11/2010. - Calculus of kidney 05/17/[address] Nicolas: Hospitalized age 20, a nd again later -- no procedures so far ([facility] [place], [address] [facility]) - Cancer (HCC) - Diverticulosis - Dysmenorrhea [...] Approx. 3 cigarettes daily-1 pack every w [place] Substance Use Topics - Alcohol use: Yes [...] (TYLENOL) 650 mg ORAL q 4 H AK N ALLERGIES Allergen Reactions - Penicillins Rash [...] 26, 2020 TIME: 11:10 AM PAGER/CONTACT #: [phone] After 3PM please use on-call paging system Vickie Srivastava MD 05/26/2020 2:11 PM Attested Attestation signed by Oh Arreaga at 05/26/2020 2:23 PM Attending Note I personally saw and examined the patient on 05/26/20. I rev iewed the resident's note. I agree with the resident's assessment and plan unless otherwise noted. Signature: Oh Arreaga, DO Date: 05/26/2020 Time: 2:23 PM Pager: [phone] HOUSE MEDICINE SERVICE PROGRESS NOTE SERVICE DATE: May 26, 2020 SERVICE TIME: 1:53 PM NIGHT AND WEEKEND COVERAGE: From 6 AM to 5 PM: You may reach the House Medicine security intern currently assigned to this patien t by finding their pager number on the treatment team (they will be assigned as the security intern or resident). It is the last four digits in the phone num alyson beginning with ([phone]). We encourage the use of [employer] Secure Chat. SUBJECTIVE HPI: 39 year old [...] (TYLENOL) 650 mg ORAL q 4 H AK N - oxyCODONE IR 10 mg tab(s) (ROXICODONE) 10 mg ORAL q 6 H AK N Objective PHYSICAL EXAM: VITALS:BP 119/74 Pulse [...] 27, 2020 TIME: 1:15 PM PAGER/CONTACT #: Central Supply Manager Pager Vickie Srivastava MD 05/27/2020 4:19 PM [...] PM: You may reach the House Medicine security intern currently assigned to this patien t by finding their pager number on the treatment team (they will be assigned as the security intern or resident). It is the last four digits in the phone num alyson beginning with ([phone]). We encourage the use of [employer] Secure Chat. SUBJECTIVE HPI: 39 year old [...] Note Patient Name: Sally Mcgregor Patient Location: [id number] Attempted to draw AM labs. Was unsuccessful x 2 attempts. This note was completed by: VIN Conley MD 05/28/2020 8:57 AM Incomplete HOUSE MEDICINE SERVICE PROGRESS NOTE SERVICE DATE: May 28, 2020 SERVICE TIME: 1:53 PM NIGHT AND WEEKEND COVERAGE: From 6 AM to 5 PM: You may reach the House Medicine security intern currently assigned to this patien t by finding their pager number on the treatment team (they will be assigned as the security intern or resident). It is the last four digits in the phone num alyson beginning with ([phone]). We encourage the use of [employer] Secure Chat. SUBJECTIVE HPI: 39 year old [...] delete will not show in completed note) :[id number] } Intractable nausea and vomiting Intractable nausea [...] delete will not show in completed note) :[id number] } Medication and Non-Pharmacologic VTE Prophylaxis/Anticoagula nts [...] mg x 3 Quetiapine 100 mg daily [place] prescription history Shows occasional use of opiates, [...] (ROXICODONE) 10 mg ORAL q 6 H AK N Maggi (Kiran) MD Mark 10 mg [...] Approx. 3 cigarettes daily-1 pack every w [place] Substance Use Topics - Alcohol use: Yes [...] Benign liver cyst 05/24/[address] [facility] 11/2009 and 04/2010 showe 4 mm increase in size . No pain. No elevated LFTs on 03/11/2010. - Calculus of kidney 05/17/[address] Nicolas: Hospitalized age 20, a nd again later -- no procedures so far ([facility], [facility], [address] [facility]) - Cancer (HCC) - Diverticulosis - Dysmenorrhea [...] Approx. 3 cigarettes daily-1 pack every w [place] Substance Use Topics - Alcohol use: Yes [...] May 28, 2020 TIME: 12:15 PM CSN: [id number] history physical on 2020-05-25 HISTORY HNO ID: [id number] Normal 05-25-2020 [place] PHYSICAL Author: Maggi Flores MD General Service: Hospital Medicine Medical Author Type: Resident Center Type: [facility] ([id number]) Filed: 05/25/2020 5:42 PM Note Text: Attestation [...] PM: You may reach the House Medicine security intern currently assigned to this patient by findin g their pager number on the treatment team (they will be assigned as the i ntern or resident). It is the last four digits in the phone number be ginning with ([phone]). We encourage the use of [employer] Secure Chat. PCP: Marcelino Mejia MD Admitting Attending: No admitting provider for patient sundar sandy. SUBJECTIVE Chief Complaint: Intractable nausea and vomiting HPI: Slaly Mcgregor is a 39 year old F [...] Benign liver cyst 05/24/[address] [facility] 11/2009 and 04/2010 showe 4 mm increase in size . No pain. No elevated LFTs on 03/11/2010. - Calculus of kidney 05/17/[address] Nicolas: Hospitalized age 20, and again later -- no procedures so far ([facility]) - Cancer (HCC) - Diverticulosis - Dysmenorrhea [...] Approx. 3 cigarettes daily-1 pack every w [place] Substance Use Topics - Alcohol use: Yes [...] Immature Grans 0.09 0.00-0.05 thou/cmm High 05-25-2020 [facility] (00 000) Comment: Performed By: #### CBCD1 ### # [place] [address] Abs Neut (ANC) 3.14 1.56-6.13 thou/cmm Normal 05-25-2020 [facility] (27168) Comment: Performed By: #### CBCD1 ### # [facility] [address] [place], [place] [address] Abs. Baso 0.06 0.01-0.08 thou/cmm Normal 05-25-2020 [facility] (18426) Comment: Result Comment: Smear scanne d; tech agrees with automated differential Performed By: #### CBCD1 ### # [facility] [address] [place], [place] [address] Abs. Morris 0.50 0.27-0.70 thou/cmm Normal 05-25-2020 [facility] (03760) Comment: Performed By: #### CBCD1 ### # [facility] [address] [place], [place] [address] Basophils/100 WBC (Bld) 0.7 % Normal 2019 [facility] (29653) Comment: Performed By: #### CBCD1 ### # [facility] [address] [place], [place] [address] Eosinophils (Bld) 0.30 0.00-0.31 thou/cmm Normal 05-25-2020 [facility] [#/Vol] [facility] (66761) Comment: Performed By: #### CBCD1 ### # [facility] [address] [place], [place] [address]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 limit intake. Referring Provider: MARCELINO MEJIA [[id number]] Allergies As of Date: 04/26/2020 Noted Allergy [...] doctor.Disp: 1 BottleRfl : 0 INSERT IV ([place]) [3653365] Order #: [id number]: 1 FUTURE IV DISCONTINUE [8861499] Order #: [id number]: 1 FUTURE INSERT IV ([place]) [5363703] Order #: [id number]: 1 EGD [4081790] Order #: [id number] FUTURE COLONOSCOPY - DIAGNOSTIC [2487997] Order #: [id number] FUTUR E CELIAC DISEASE PANEL [0900542] Order #: [id number] FUTURE IGG SUBCLASSES BLD [SQIGGSUB] Order #: [id number] FUTURE US ABD RT UPPER QUADRANT [2743024] Order #: [id number] FUTUR E metroNIDAZOLE (FLAGYL) 500 mg tabletTake [...] AND PRE-OPERATIVE COVID [SQPOCOVD] Order #: [id number] FUTURE Prescriptions as of 04/26/2020 Sig: DIPHENHYDRAMINE [...] take a taxi or bus, or leave [facility] ALONE. If you do not have a responsible team cdl driver (famil y member or friend) with [...] the prescription bowel preparation solution at your [facility] pharmacy or drugstore pharmacy. 08/2019 Bowel [...] on 2020-04-26 CNCO Letter Text Normal 04-26-[address] [facility] ([id number]) cnpn on 2020-04-19 CNPN Telephone (FAMPWS) Normal 04-19-2020 [place] [facility] SALLY MCGREGOR ([id number]) 1980 [facility] Date Time Provider Department ([id number]) 04/19/20 [facility] During your visit today, we recorded the following informati on about you: Christopher Carcamo RN 04/19/2020 10:49 AM Signed Faxed GI referral and demographics to [facility] GI, per patient request. . Allergies As [...] Fully Assessed Reason for Visit: Faxed to [facility] [Other] Prescriptions as of 04/19/2020 Sig: [...] on 2020-04-18 CNPN Telephone (FAMPWS) Normal 04-18-2020 [place] [facility] SALLY MCGREGOR ([id number]) 1980 [facility] Date Time Provider Department (85774) 04/18/20 [facility] During your visit today, we recorded the following informati on about you: Yvette Huffman RN 04/18/2020 2:01 PM Signed Pt called, verified by name and birthdate. Pt wants to know if she can see a GI doctor. Reviewed pt's chart and she has a GI con sult with GI group in [place]. Pt verbalized understanding, states she will call to make ap t Yvette Huffman RN Allergies As of Date: 04/18/2020 Noted Allergy Reaction PENICILLINS 12/07/2009 2 - Rash ASA (SALICYLATES) 01/27/2011 14 - Other: See Comments Comments: ulcers CONTRAST DYE (IODINE) 05/17/2008 12 - Shortness of Breath FLAGYL (METRONIDAZOLE HCL) 03/11/2010 12 - Shortness of [place] IBUPROFEN 06/18/2016 8 - GI Upset PREDNISONE 06/18/2016 14 - Other: See Comments Comments: makes agitated and mean Date Reviewed: 02/23/2020 Reviewed by: Marcelino Mejia - Fully Assessed Reason for Visit: Patient Question [7307] Prescriptions as of 04/18/2020 Sig: TOPIRAMATE 50 [...] on 2020-04-16 CNPN Telephone (FAMSkylerWS) Normal 04-16-2020 [place] [facility] SALLY MCGREGOR ([id number]) 1980 [facility] Date Time Provider Department ([id number]) 04/16/20 [facility] During your visit today, we recorded the following informati on about you: Edwina Tatum AIRFRAME AND POWERPLANT TECHNICIAN 04/16/2020 11:38 AM Signed Pt calls to report she went to [facility] ER 04/12. Pt reports she went because [...] (METRONIDAZOLE HCL) 03/11/2010 12 - Shortness of [place] IBUPROFEN 06/18/2016 8 - GI Upset [...] on 2020-03-29 CNPN Telephone (FAMPWS) Normal 03-29-2020 [place] [facility] SALLY MCGREGOR ([id number]) 1980 [facility] Date Time Provider Department ([id number]) 03/29/20 [facility] During your visit today, we recorded the following informati on about you: Melanie Debby HERNANDEZ 03/29/2020 10:06 AM Signed Patient calling crying constantly, so congested from a ll the crying, can not get appt with [facility] will not take her insurance. [facility] will not take any new patients [...] AM Signed 1. Can we confirm that [facility] neuro at [facility] doesn't take her insurance. If they don't take her insurance then we ca n see if can get her in with Dr. Church since he is back in [facility] now. 2. Find out how long [...] she said to ask for prescription for [facility] le relaxer or ibuprofen (she said, in below message she can't take ibuprof en). TC to [facility] and had to leave message for them to return call regarding if they accept patient's insurance. Instructed the m to give patient's name when they return the call so we can document. Lorenzo Vu 03/29/2020 12:49 PM Signed Giulia / [facility] returned call stating the y do not take [place]; provider is not credentialed with them yet. [...] muscle relaxer for her migraines. Pharmacy is [facility]. Please review and advise. VIN [...] (METRONIDAZOLE HCL) 03/11/2010 12 - Shortness of [place] IBUPROFEN 06/18/2016 8 - GI Upset [...] 2020-03-28 CNPN Telephone (FAMWS) Normal 03-28-2020 [place] [facility] SALLY MCGREGOR ([id number]) 1980 [facility] Date Time Provider Department (48846) 03/28/20 MARCELINO MEJIA During your visit today, [...] OBSOLETE Refill (FAMPWS) Normal 03-27-2020 Isaías veland [facility] SALLY MCGREGOR ([id number]) 1980 [facility] Date Time Provider Department (10496) 03/27/20 MARCELINO MEJIA FAMPWS During your visit [...] on 2020-03-27 CNPN Telephone (FAMPWS) Normal 03-27-2020 [facility] SALLY MCGREGOR ([id number]) 1980 [place] Date Time Provider Department (20651) 03/27/20 MARCELINO MEJIA During your visit today, we recorded the following informati on about you: Yvette Huffman RN 03/27/2020 10:59 AM Signed Pt called, verified by name and birthdate. Pt states s he went to [facility] ER last night for a migraine and had a CT scan. Pt wants PCP to review ER records. Pt wants referral to neurology. Order pended. When signed pleas e fax to [facility] at [facility] per pt request Yvette Murphy Ma 03/27/2020 12:20 PM Signed ER reports on PCP's desk to review. Jessica Zhou, RN, RN 03/27/2020 1:37 PM Signed Pt calls, asking what the diagnosis was on the ER note. Pt states she was told air bubble, tumor States Imitrex is not working. Has already taken 2 today. Wa iting on [facility] to call her back Pt asking [...] referral placed and can be faxed to [facility]. Let patient know th e CT did [...] referred to. See needs to contact her point of care technician to get the help see nee ds as instructed on 03/22/2020, otherwise our hands are tied. Jessica Murphy Ma 03/27/2020 2:29 PM Signed Pt notified and voiced understanding. Referral and Dem o faxed to [facility]. Jessica Murphy Ma Allergies As of [...] [G43.009] Order(s):CONSULT TO NEUROLOGY [9019] Order #: [id number]: 1 FUTURE Prescriptions as of 03/27/2020 Sig: [...] 03/27/20 progress on 2020-03 PROGRESS HNO ID: [id number] Normal 03-22-2020 [facility] Author: Isabel (Maya) Hugo Mata ([id number]) Service: ? Author Type: Physician Certified Physician'S Assistant Type: Progress Notes Filed: 03/22/2020 9:50 AM Note Text: DISTANCE HEALTH VISIT This Team Access Model visit is a phone encounter. It requir ed patient-provider interaction for the medical decision making as documented below. No video was used for evaluation of this patient. Patient consents to visit. Patient location: [place] Sally Mcgregor is a 39 year old female seen for headaches a nd pain. Patient states she has had to cancel with pain management 5 different times so now they won't reschedule her. She continues to have migraines/headaches. Only taking topam ax once a day. Couldn't do MRI or US due to rides. States she couldn't go to [place] for her cardiac testing but continues to [...] 11-20 minutes cnpn on 2020-03-22 CNPN Telephone ([facility]) Normal 03-22-2020 [place] [facility] TOSHIASALLY TORRES ([id number]) 1980 [facility] Date Time Provider Department ([id number]) 03/22/20 ISABEL ARIAS) RAMA During your visit today, we recorded the following informati on about you: ISABEL ARIAS PA-C 03/22/2020 9:43 AM Signed Please let patient know that this is info I have received from in regards to rides: The last I knew, most of them were back up and running. I do know that [facility] has been continuing with their ride assistance and are taking people to their appts. I would sa y they need to check now with insurance to see if able to set up ride. The patient could also see if they can request a point of care technician through their Medicaid Managed Care p maria esther. I have patients that have Medicaid plan and their care managers a re able to assist them setting up services. Having a point of care technician through insu eve is great because they [...] again. I advised her that she contact [place] and request more help from her point of care technician. Allergies As of Date: 03/22/2020 Noted Allergy [...] Encounter Status:Closed by ISABEL WARE [facility] Normal 03-08-2020 [place] SALLY Martinez ([id number]) 1980 [facility] Date Time Provider Department ([id number]) 03/08/20 [facility] During your visit today, we recorded [...] transfer to scheduling and while waiting for cup setter lockstitch which was awhile, pt dropped call. Attempted [...] (METRONIDAZOLE HCL) 03/11/2010 12 - Shortness of Meadow th IBUPROFEN 06/18/2016 8 - GI Upset [...] on 2020-03-05 CNPN Telephone (FAMWS) Normal 03-05-2020 [place] [facility] BENJIShivaSALLY ([id number]) 1980 F [place] Date Time Provider Department (16701) 03/05/20 [facility] During your visit today, we recorded the following informati on about you: Sallie Benitez AIRFRAME AND POWERPLANT TECHNICIAN 03/05/2020 1:58 PM Signed Patient is scheduling [...] on 03/06/20 CNPN Telephone (FAMPWS) Normal 03-05-2020 [place] [facility] SALLY MCGREGOR ([id number]) 1980 F [place] Date Time Provider Department (69995) 03/05/20 MARCELINO MEJIA During your visit today, we recorded the following informati on about you: Melanie Debby AIRFRAME AND POWERPLANT TECHNICIAN 03/05/2020 2:16 PM Signed Patient calling would like cup setter lockstitch to call her back to set up [...] stated 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 vic stated she [...] (METRONIDAZOLE HCL) 03/11/2010 12 - Shortness of Meadow th IBUPROFEN 06/18/2016 8 - GI Upset [...] on 2020-02-28 CNPN Telephone (FAMPWS) Normal 02-28-2020 [place] SALLY Martinez ([id number]) 1980 [place] Date Time Provider Department (58025) 02/28/20 [facility] During your visit today, we recorded the following informati on about you: Janneth Zhou, RN, RN 02/28/2020 10:41 AM Signed Pt calls for ER F/U appt. States she was at [facility] ER on 02/24 after reportidly passing out. [...] XR CHEST 1 VIEW ORIGINAL Normal 02-25-2020 [facility] XR CHEST 1 VIEW Foun dation ([place]) (94559) CLINICAL STATEMENT: Chest pain COMPARISON: 04/06/2006 FINDINGS: [...] Troponin I.cardiac <0.020 0.000-0.040 ng/mL Normal 0 [place] [Mass/Vol] [place] ([place]) (42141) Comment: Result Comment: Troponin I r eference range: 0.00-0.040 ng/mL Negative an d non-diagnostic. >0.040 ng/mL Consistent with cardiac damage, increased clinical risk and possibility of myocardial in farction. Serial measurements, a rise & fall in test results, clinical histo ry, appropriate symptoms and/or ECG changes may help assess possibility of PR. *Other non-acute coronary sy ndrome conditions such as CHF, myoc arditis, pulmonary emboli, sepsis and cardiac surgery could result in myoc ardial damage and increased troponi n levels. Performed By: #### CBC, ADIF F, ANEU, BMP, GFR #### [address] [address] mg on 2020-02-25 Magnesium [Mass/Vol] 2.0 1.8-2.4 mg/dL Normal 0 [facility] ([place]) (0000 0) Comment: Performed By: #### CBC, ADIF F, ANEU, BMP, GFR #### [address] [address] lip on 2020-02-25 Lipase Level 562 73-393 U/L High 02-25-2020 [facility] ([place]) (49090) Comment: Performed By: #### CBC, ADIF F, ANEU, BMP, GFR #### [address] [address] cmp on 2020-02-25 Albumin [Mass/Vol] 4.1 3.5-5.0 G/dL Normal 02-25-2020 [facility] ([place]) (05104) Comment: Performed By: #### CBC, ADIF F, ANEU, BMP, GFR #### [address] [address] Albumin/Globulin [Mass 1.2 1.1-2.5 ratio Normal [address] [place] [address]] [facility] ([place]) (33543) Comment: Performed By: #### CBC, ADIF F, ANEU, BMP, GFR #### [address] [address] ALP [Catalytic activity/Vol] 98 40-135 U/L Normal 0 02-25-2020 [facility] ([place]) (0000 0) Comment: Performed By: #### CBC, ADIF F, ANEU, BMP, GFR #### [address] [address] ALT [Catalytic activity/Vol] 30 10-35 U/L Normal 0 02-25-2020 [facility] ([place]) (0000 0) Comment: Performed By: #### CBC, ADIF F, ANEU, BMP, GFR #### [address] [address] AST [Catalytic activity/Vol] 15 10-40 U/L Normal 0 02-25-2020 [facility] ([place]) (0000 0) Comment: Performed By: #### CBC, ADIF F, ANEU, BMP, GFR #### [address] [address] Bili Total 0.4 0.2-1.0 mg/dL Normal 02-25-2020 [facility] ([place]) (91546) Comment: Result Comment: Use of this assay is not recommended for patients undergoing treatment with eltrombopag d ue to the potential for falsely elevated results. Performed By: #### CBC, ADIF F, ANEU, BMP, GFR #### [address] [address] Calcium [Mass/Vol] 8.9 8.4-10.2 mg/dL Normal 02-25-2020 [facility] ([place]) (0000 0) Comment: Performed By: #### CBC, ADIF F, ANEU, BMP, GFR #### [address] [address] Chloride [Moles/Vol] 104 98-107 mmol/L Normal 0 [facility] ([place]) (0000 0) Comment: Performed By: #### CBC, ADIF F, ANEU, BMP, GFR #### [address] [address] CO2 [Moles/Vol] 28 22-29 mmol/L Normal 02-25-2020 [facility] ([place]) (35937) Comment: Performed By: #### CBC, ADIF F, ANEU, BMP, GFR #### [address] [address] Creatinine [Mass/Vol] 1.01 0.55-1.02 mg/dL Normal 02-25-20 20 [facility] ([place]) (19330) Comment: Performed By: #### CBC, ADIF F, ANEU, BMP, GFR #### [address] [address] Electrolyte Balance 9.0 mEq/L Normal 02-25-2020 [facility] ([place]) (09908) Comment: Performed By: #### CBC, ADIF F, ANEU, BMP, GFR #### [address] [address] Globulin (S) [Mass/Vol] 3.4 G/dL Normal 2019 [facility] ([place]) (18176) Comment: Performed By: #### CBC, ADIF F, ANEU, BMP, GFR #### [address] [address] Glucose [Mass/Vol] 112 70-105 mg/dL High 02-25-2020 [facility] ([place]) (98382) Comment: Performed By: #### CBC, ADIF F, ANEU, BMP, GFR #### [address] [address] Potassium [Moles/Vol] 3.7 3.5-5.1 mmol/L Normal 02-25-20 [facility] ([place]) (0000 0) Comment: Performed By: #### CBC, ADIF F, ANEU, BMP, GFR #### [address] [address] Protein [Mass/Vol] 7.5 6.4-8.2 G/dL Normal 02-25-2020 [facility] ([place]) (12376) Comment: Performed By: #### CBC, ADIF F, ANEU, BMP, GFR #### [address] [address] Sodium [Moles/Vol] 141 136-145 mmol/L Normal 02-25-2020 [facility] ([place]) (0000 0) Comment: Performed By: #### CBC, ADIF F, ANEU, BMP, GFR #### [address] [address] Urea nitrogen [Mass/Vol] 21 7-18 mg/dL High 02-24 [facility] ([place]) (68848) Comment: Performed By: #### CBC, ADIF F, ANEU, BMP, GFR #### [address] [address] Urea nitrogen/Creatinine [Mass 21 7-27 ratio Normal 02-25-2020 [facility]] [facility] ([place]) (04494) Comment: Performed By: #### CBC, ADIF F, ANEU, BMP, GFR #### [address] [address] cbc on 2020-02-25 Erythrocyte distribution 14.9 11.5-14.5 % High 02-24 [facility] width (RBC) [Ratio] ([place]) (70721) Comment: Performed By: #### CBC, ADIF F, ANEU, BMP, GFR #### [place] [address] Hematocrit (Bld) [Volume 35.9 37.0-47.0 % Low 02-24 [facility] fraction] ([place]) (0000 0) Comment: Performed By: #### CBC, ADIF F, ANEU, BMP, GFR #### [place] [address] Hemoglobin (Bld) 11.8 12.0-16.0 G/dL Low 02-25-2020 [facility] [Mass/Vol] ([place]) (000 00) Comment: Performed By: #### CBC, ADIF F, ANEU, BMP, GFR #### [place] [id number] MCH (RBC) [Entitic mass] 29.5 27.0-31.2 pg Normal 02-24 [facility] ([place]) (0000 0) Comment: Performed By: #### CBC, ADIF F, ANEU, BMP, GFR #### [place] [id number] MCHC (RBC) [Mass/Vol] 32.9 33.0-37.0 G/dL Low 02-25-20 20 [facility] ([place]) (0000 0) Comment: Performed By: #### CBC, ADIF F, ANEU, BMP, GFR #### [place] [id number] MCV (RBC) [Entitic vol] 89.9 80.0-94.0 fL Normal 2019 [facility] ([place]) (0000 0) Comment: Performed By: #### CBC, ADIF F, ANEU, BMP, GFR #### [place] [address] Platelet mean volume 9.2 7.4-10.4 fL Normal 0 [facility] (d) [Entitic vol] ([place]) (28037) Comment: Performed By: #### CBC, ADIF F, ANEU, BMP, GFR #### [place] [address] Platelets (Bld) [#/Vol] 265 130-400 10 3/mcL Normal 2019 [facility] ([place]) (07048) Comment: Performed By: #### CBC, ADIF F, ANEU, BMP, GFR #### [place] [address] RBC (Bld) [#/Vol] 4.00 4.20-5.40 10 6/mcL Low 02-25-2020 [facility] ([place]) (0000 0) Comment: Performed By: #### CBC, ADIF F, ANEU, BMP, GFR #### [place] [address] WBC (Bld) [#/Vol] 9.90 4.60-10.80 10 3/mcL Normal 02-25-2020 [facility] ([place]) (02359) Comment: Performed By: #### CBC, ADIF F, ANEU, BMP, GFR #### [place] [address] .neuabs on Neutrophils (Bld) 6.00 2.85-6.16 10 3/mcL Normal 02-25-2020 A [facility] [#/Vol] [facility] ([place]) (16862) Comment: Performed By: #### CBC, ADIF F, ANEU, BMP, GFR #### [address] [address] .gfr on 2020-02-25 GFR Non- 61 ml/min/1.73sqm Normal 02-25-2020 [facility] ([place]) (22500) Comment: Result Comment: GFR Population mean for Afri can Nigerian, Non- Americans Ages 20-29 = 116 mL/min/1.73 [...] CBC, ADIF F, ANEU, BMP, GFR #### [address] [address] GFR 74 ml/min/1.73sqm Normal 02-12 [facility] ([place]) (0000 0) Comment: Result Comment: GFR Population mean for Afri can Nigerian, Non- Americans Ages 20-29 = 116 mL/min/1.73 [...] CBC, ADIF F, ANEU, BMP, GFR #### [address] [address] .auto diff on 02-24 Ammonia (P) [Mass/Vol] 0.60 0.15-1.00 10 3/mcL Normal 020 [facility] ([place]) (93977) Comment: Performed By: #### CBC, ADIF F, ANEU, BMP, GFR #### [address] [address] Basophils (Bld) 0.00 0.00-0.19 10 3/mcL Normal 02-25-2020 [facility] [#/Vol] [facility] ([place]) (30393) Comment: Performed By: #### CBC, ADIF F, ANEU, BMP, GFR #### [address] [address] Basophils/100 WBC (Bld) 0.2 0.0-2.5 % Normal 2019 [facility] ([place]) (0000 0) Comment: Performed By: #### CBC, ADIF F, ANEU, BMP, GFR #### [address] [address] Eosinophils (Bld) 0.30 0.00-0.40 10 3/mcL Normal 02-25-2020 [facility] [#/Vol] [facility] ([place]) (23531) Comment: Performed By: #### CBC, ADIF F, ANEU, BMP, GFR #### [address] [address] Eosinophils/100 WBC (Bld) 3.5 0.0-7.0 % Normal 02-12 [facility] ([place]) (0000 0) Comment: Performed By: #### CBC, ADIF F, ANEU, BMP, GFR #### [address] [address] Lymphocytes (Bld) 2.90 0.77-3.85 10 3/mcL Normal 02-25-2020 [facility] [#/Vol] [facility] ([place]) (28186) Comment: Performed By: #### CBC, ADIF F, ANEU, BMP, GFR #### [address] [address] Lymphocytes/100 WBC (Bld) 28.9 10.0-50.0 % Normal 02-12 [facility] ([place]) (47684) Comment: Performed By: #### CBC, ADIF F, ANEU, BMP, GFR #### [address] [address] Monocytes/100 WBC (Bld) 6.3 1.7-13.0 % Normal 2019 [facility] ([place]) (0000 0) Comment: Performed By: #### CBC, ADIF F, ANEU, BMP, GFR #### [facility] [address] [place] [address] Neutrophils/100 WBC (Bld) 61.1 37.0-80.0 % Normal 02-12 [facility] ([place]) (19349) Comment: Performed By: #### CBC, ADIF F, ANEU, BMP, GFR #### [facility] [address] [place] [address] progress on 2020-02 PROGRESS HNO ID: [id number] Normal 02-23-2020 [facility] Author: Marcelino Mejia [place] ([id number]) Service: ? Author Type: Physician Type: Progress [...] on 2020-02-20 CNPN Telephone (FAMPWS) Normal 02-20-2020 [place] [facility] SALLY MCGREGOR ([id number]) 1980 [facility] Date Time Provider Department (27065) 02/20/20 MARCELINO MEJIA During your visit today, we recorded the following informati on about you: Lexy Tapia RN 02/20/2020 8:40 AM Signed fyi- Patient calls to report to PCP that she was back in [facility] ER over weekend due to pain from Pancreatitis. Her level was 800, so they s ent me home. States she received Oxycodone and report s that it is not doing much to relieve her pain and wanted PCP aware that she was in ER again. Patient did not have phone number of [facility] to schedule f ollow up. This [...] (METRONIDAZOLE HCL) 03/11/2010 12 - Shortness of Meadow th IBUPROFEN 06/18/2016 8 - GI Upset [...] Encounter Status:Closed by MARCELINO MEJIA on 02/20/20 [facility] ([facility]) Normal 02-20-2020 [place] [facility] SALLY MCGREGOR ([id number]) 1980 [facility] Date Time Provider Department ([id number]) 02/20/20 MARCELINO MEJIA [facility] During your visit today, we recorded the following informati on about you: Christopher Carcamo RN 02/20/2020 9:48 AM Signed Patient phoned crying and distraught, stating [facility], can not get her in until March. States she cannot take this pain anymore, her insurance will not cover anyone in [facility] When she was in the hospital [...] pain right now, she is upset because [facility] cannot see her until March. Asking if there is anything pcp can do to get her in sooner? Ple ase phone patient with reply. Marcelino Mejia MD 02/20/2020 10:15 AM Signed Let patient know the only op tions ar for her to go to [facility] ER to see if will be [...] has no one to take her to [place]. She said when she goes to [facility] the y just drug her up and [...] Crying. She cannot get transport ation to [facility]. Insurance does not cover [facility] and do es not want to go back to [place] because they will just send h er home with meds and dope me up for 3-4 days. Johnathon SOTELO cannot get her an appointment until March . Will route to clerical gastro for schedu ling within [facility] - possibly [facility]. Marcelino Mejia MD 02/20/2020 12:34 PM Signed noted Augustina Vera RN CHANNEL MARKETING COORDINATOR.JAKI 02/20/2020 12:40 PM Signed I'd suggest that she go to [facility] today. it w ould not be [...] she has no way of getting to [facility]. Pt states she does not th ink they take her insurance either. Spoke with PCP who suggested [facility]. Relayed message to pt, pt started yelling stating she has no transp ortation. States if she calls ambulance they will only take her within [facility]. Sta los her boyfriend can't take [...] illness. Asking letter to be faxed to [phone]. Marcelino Mejia MD 02/20/2020 2:38 PM Signed Let patient know ER report from 02/18/2020 was reviewed and th e ER Physician wanted to keep but she preferred to go home and see if she c ould manage it there. Lorenzo Vu 02/20/2020 4:06 PM Signed Patient returned call, stating she went to [facility] ER today an d they discharged her because her level is less than 800. Reques ting something for pain, that Percocet helped some in past. No transportation to go anywhe re but [place] (?social service manager to help with transportat ion). Does not [...] doctor. In regards to her letter for [place] [employer] karsten what I [...] Signed Letter ready to be faxed to [phone]. Branden Sanders Ma 02/21/2020 8:24 AM Signed [...] Status:Closed by BRANDEN SANDERS MA on 02/21/20 [facility] ([facility]) Normal 02-20-2020 [place] SALLY Martinez ([id number]) 1980 [facility] Date Time Provider Department ([id number]) 02/20/20 [facility] During your visit today, we recorded the following informati on about you: Melanie Debby HERNANDEZ 02/20/2020 2:25 PM Signed Patient calling wants note sent to PCP, she is currently i n [facility] ER. Patient said she has been sitting [...] Encounter Status:Closed by MARCELINO MEJIA on 02/20/20 [facility] [facility] Telephone (UCWSTR) Normal 02-16-2020 [place] SALLY Martinez ([id number]) 1980 [place] Date Time Provider Department ([id number]) 02/16/20 JESSICA JESUS) [facility] During your visit today, we [...] Telephone (FAMPWS) Normal 02-16-2020 [place] SALLY Martinez ([id number]) 1980 [place] Date Time Provider Department ([id number]) 02/16/20 ISABEL ARIAS) [facility] During your visit [...] (METRONIDAZOLE HCL) 03/11/2010 12 - Shortness of Meadow th IBUPROFEN 06/18/2016 8 - GI Upset [...] 02/16/20 progress on 2020-02 PROGRESS HNO ID: [id number] Normal 02-15-2020 [facility] Author: Marcelino Mejia [place] ([id number]) Service: ? Author Type: Physician Type: Progress [...] at today?s visit. Patient was sen in [facility] ER on 02/01/2020 with C/O epigastric p [...] being home. Patient was seen in the [facility] care yesterday for mouth sor es [...] nosis) - CONSULT TO GASTROENTEROLOGY: [facility] [place] - Cont prn phenergan. 2. Tongue ulcer [...] 02-15-2020 [facility] activity/Vol] [place] and (66590) Comment: Performed By: #### HBA1C, TS H, LIPNF #### [facility] [address] [place], [place] [address] comp metabolic panel on 2020-02-15 Albumin [Mass/Vol] 4.6 3.9-4.9 g/dL Normal 02-15-2020 [facility] (88698) Comment: Performed By: #### HBA1C, TS H, LIPNF #### [place] [address] [place], [place] [address] ALP [Catalytic activity/Vol] 90 34-123 U/L Normal 0 02-15-2020 [facility] (87404) Comment: Performed By: #### HBA1C, TS H, LIPNF #### [facility] [address] [place], [place] [address] ALT [Catalytic activity/Vol] 6 7-38 U/L Low 0 02-15-2020 [facility] (68300) Comment: Performed By: #### HBA1C, TS H, LIPNF #### [facility] [address] [place], [place] [address] Anion gap [Moles/Vol] 13 9-18 mmol/L Normal 02-15-20 [facility] (38903) Comment: Performed By: #### HBA1C, TS H, LIPNF #### [facility] [address] [place], [place] [address] AST [Catalytic activity/Vol] 20 13-35 U/L Normal 0 02-15-2020 [facility] (19432) Comment: Performed By: #### HBA1C, TS H, LIPNF #### [facility] [address] [place], [place] [address] Bilirubin [Mass/Vol] 0.2 0.2-1.3 mg/dL Normal 0 [facility] (14723) Comment: Performed By: #### HBA1C, TS H, LIPNF #### [facility] [address] [place] [id number] Calcium [Mass/Vol] 10.2 8.5-10.2 mg/dL Normal 02-15-2020 [facility] (45200) Comment: Performed By: #### HBA1C, TS H, LIPNF #### [place] [address] Chloride [Moles/Vol] 100 97-105 mmol/L Normal 0 [facility] (72544) Comment: Performed By: #### HBA1C, TS H, LIPNF #### [facility] s [facility] [place] 7494[address] CO2 [Moles/Vol] 26 22-30 mmol/L Normal 02-15-2020 [facility] (53972) Comment: Performed By: #### HBA1C, TS H, LIPNF #### [facility] s [facility] [place] [id number] Creatinine [Mass/Vol] 0.92 0.58-0.96 mg/dL Normal 02-15-20 20 [facility] (84906) Comment: Performed By: #### HBA1C, TS H, LIPNF #### [facility] s [facility] [place] [id number] eGFR- Amer. >60 Normal 02-15-2020 [facility] (45997) Comment: Performed By: #### HBA1C, TS H, LIPNF #### [facility] [address] [place], [place] [address] GFR/1.73 sq M predicted >60 mL/min/{1.73_m2} Normal 02-15-2020 [facility] among non-blacks MDRD [place] (51905) (S/P/Bld) [Vol rate/Area] Comment: Result Comment: eGFR [...] By: #### HBA1C TS H, LIPNF #### [facility] [address] [place], [place] [address] Glucose [Mass/Vol] 89 74-99 mg/dL Normal 02-15-2020 [facility] (26549) Comment: Result Comment: The [place] Diabetes Association (ADA) provides guidance for cutoff [...] for diagnosis of diabetes. Reference: Standards of [facility] Care in Diabetes 2016, [place] Diabetes Association. Diabetes Care. 2016.39(Suppl 1). Performed By: #### HBA1C, TS H, LIPNF #### [facility] [address] [place], [place] [address] Potassium [Moles/Vol] 3.7 3.7-5.1 mmol/L Normal 02-15-20 20 [facility] (08803) Comment: Performed By: #### HBA1C, TS H, LIPNF #### [facility] [address] [place], [place] [address] Protein [Mass/Vol] 7.8 6.3-8.0 g/dL Normal 02-15-2020 [facility] (83227) Comment: Performed By: #### HBA1C, TS H, LIPNF #### [facility] [address] [place], [place] [id number] Sodium [Moles/Vol] 139 136-144 mmol/L Normal 02-15-2020 [facility] (85651) Comment: Performed By: #### HBA1C, TS H, LIPNF #### [facility] [address] [place], [place] [address] Urea nitrogen [Mass/Vol] 9 7-21 mg/dL Normal 02-14 [facility] (20553) Comment: Performed By: #### HBA1C, TS H, LIPNF #### [facility] [address] [place], [place] [address] cnov on 2020-02-15 CNOV Office Visit (FAMPWS) Normal 02-15-[address] [place] [address] [facility] SALLY MCGREGOR ([id number]) 1980 [facility] Date Time Provider Department (25355) 02/15/20 2:20 PM MARCELINO MEJIA FAMPWS During [...] at today?s visit. Patient was sen in [facility] ER on 02/01/2020 with C/O epigastric pain [...] being home. Patient was seen in the [facility] care yesterday f or mouth sores [...] diagnosis) - CONSULT TO GASTROENTEROLOGY: [facility] [place] - Cont prn phenergan. 2. Tongue ulcer [...] (METRONIDAZOLE HCL) 03/11/2010 12 - Shortness of [place]ow th IBUPROFEN 06/18/2016 8 - GI Upset PREDNISONE 06/18/2016 14 - Other: See Comments Comments: makes agitated and mean Date Reviewed: 02/15/2020 Reviewed by: Marcelino Mejia - Fully Assessed Reason for Visit: Transition Of Care [4074] Cmt: [facility] pancreatitis Reason For Visit History Recorded Primary Visit Diagnosis:Acute pancreatitis without infection or necrosis, unspecified pancreatitis type [K85.90] Other Visit Diagnoses:Tongue ulcer [K14.0] Poor dentition [K08.9] Thrush [B37.0] Order(s):CONSULT TO GASTROENTEROLOGY [9050] Order #: [id number]: 1 FUTURE triamcinolone (KENALOG IN ORABASE) 0.1 [...] Abs Baso 0.07 <0.11 k/uL Normal 02-15-2020 [facility] (19850) Comment: Performed By: #### HBA1C, TS H, LIPNF #### [facility] [address] [place], [place] [address] Abs Morris 0.53 <0.87 k/uL Normal 02-15-2020 [facility] (86469) Comment: Performed By: #### HBA1C, TS H, LIPNF #### [facility] [address] [place], [place] [address] Abs Neut 6.05 1.45-7.50 k/uL Normal 02-15-2020 [facility] (14928) Comment: Performed By: #### HBA1C, TS H, LIPNF #### [facility] [address] [place], [place] [address] Absolute nRBC <0.01 <0.01 Normal 02-15-2020 [facility] (14765) Comment: Performed By: #### HBA1C, TS H, LIPNF #### [facility] [place] [address] Basophils/100 WBC (Bld) 0.7 % Normal 2019 [facility] (50589) Comment: Performed By: #### HBA1C, TS H, LIPNF #### [facility] s [address] [place] [address] DTYPE Auto Diff Normal 02-15-2020 [facility] (26282) Comment: Performed By: #### HBA1C, TS H, LIPNF #### [place] [address] Eosinophils (Bld) [#/Vol] 0.38 <0.46 k/uL Normal [facility] (59766) Comment: Performed By: #### HBA1C, TS H, LIPNF #### [facility] [place] [address] Eosinophils/100 WBC (Bld) 3.9 % Normal [facility] (65128) Comment: Performed By: #### HBA1C, TS H, LIPNF #### [facility] [place] [address] Erythrocyte distribution 14.7 11.5-15.0 % Normal 02-14 [facility] width (RBC) [Ratio] [place] ([id number]) Comment: Performed By: #### HBA1C, TS H, LIPNF #### [facility] [address] [place], [place] [address] Hematocrit (Bld) [Volume 40.4 36.0-46.0 % Normal 02-14 [facility] (14147) Comment: Performed By: #### HBA1C, TS H, LIPNF #### [address] [address] Hemoglobin (Bld) 12.0 11.5-15.5 g/dL Normal 02-15-2020 [facility] [Mass/Vol] [place] ([address]69) Comment: Performed By: #### HBA1C, TS H, LIPNF #### [place] [address] Lymphocytes (Bld) [#/Vol] 2.77 1.00-4.00 k/uL Normal [facility] (59811) Comment: Performed By: #### HBA1C, TS H, LIPNF #### [address] [address] Lymphocytes/100 WBC (Bld) 28.3 % Normal [facility] (54757) Comment: Performed By: #### HBA1C, TS H, LIPNF #### [address] [address] MCH (RBC) [Entitic mass] 28.6 26.0-34.0 pG Normal 02-14 [facility] (91299) Comment: Performed By: #### HBA1C, TS H, LIPNF #### [address] [address] MCHC (RBC) [Mass/Vol] 29.7 30.5-36.0 g/dL Low 02-15-20 [facility] (56403) Comment: Performed By: #### HBA1C, TS H, LIPNF #### [address], [place] [address] MCV (RBC) [Entitic vol] 96.4 80.0-100.0 fL Normal 02-14 [facility] (11307) Comment: Performed By: #### HBA1C, TS H, LIPNF #### [facility] [address] [place], [place] [address] Monocytes/100 WBC (Bld) 5.4 % Normal 2019 [facility] (19303) Comment: Performed By: #### HBA1C, TS H, LIPNF #### [facility] [address] [place], [place] [address] Neutrophils/100 WBC (Bld) 61.7 % Normal [facility] (33504) Comment: Performed By: #### HBA1C, TS H, LIPNF #### [facility] [address] [place], [place] [address] NRBCs 0.0 0 /100 WBC Normal 02-15-2020 [facility] (15126) Comment: Performed By: #### HBA1C, TS H, LIPNF #### [facility] [address] [place], [place] [address] Platelet mean volume 10.6 9.0-12.7 fL Normal 0 [facility] (Bld) [Entitic vol] [place] ([address]) Comment: Performed By: #### HBA1C, TS H, LIPNF #### [facility] [address] [place], [place] [address] Platelets (Bld) [#/Vol] 435 150-400 k/uL High 2019 [facility] (63220) Comment: Performed By: #### HBA1C, TS H, LIPNF #### [facility] [address] [place], [place] [address] RBC (Bld) [#/Vol] 4.19 3.90-5.20 m/uL Normal 02-15-2020 [facility] (78134) Comment: Performed By: #### HBA1C, TS H, LIPNF #### [facility] [address] [place], [place] [address] WBC (Bld) [#/Vol] 9.80 3.70-11.00 k/uL Normal 02-15-2020 [facility] (48176) Comment: Performed By: #### HBA1C, TS H, LIPNF #### [facility] [address] [place], [place] [address] amylase on Amylase [Catalytic 52 30-104 U/L Normal 02-15-2020 [facility] activity/Vol] [place] ([address]) Comment: Performed By: #### HBA1C, TS H, LIPNF #### [facility] [address] [place], [place] [id number] progress on 2020-02 PROGRESS HNO ID: [id number] Normal 02-14-2020 [facility] Author: Jessica Coppola) [facility] [place] ([id number]) Service: ? Author Type: Physician Certified Physician'S Assistant Type: Progress Notes Filed: 02/14/2020 1:14 PM Note Text: This note was created using Sensus Experienceriter. Subjective Sally Mcgregor is a 39 year [...] Benign liver cyst 05/24/[address] [facility] 11/2009 and 04/2010 showe 4 mm increase in size . No pain. No elevated LFTs on 03/11/2010. - Calculus of kidney 05/17/[address] Nicolas: Hospitalized age 20, and again later -- no procedures so far ([facility], [facility], [address] [facility]) - Dysmenorrhea - Impaired fasting glucose 05/17/2008 [...] MG DAILY September 02, 2019 5:34am 09-02-2019 [facility] ([id number]) - ondansetron orally disintegrating (ZOFRAN ODT) 4 [...] Approx. 3 cigarettes daily-1 pack every w [place] Substance Use Topics - Alcohol use: Yes [...] Sp. Request/Comment: - Swab Critical ly 02-14-2020 [facility] abnormal [place] Culture Result - Few Neris glabrata --> ABNORMAL ALERT (47985) Comment: Performed By: #### HBA1C, TS H, LIPNF #### [facility] [address] [place] [address] cnov on 2020-02-14 [facility] Office Visit (UCWSTR) Normal 02-14-20 [place] [facility] SALLY MCGREGOR ([id number]) 1980 [facility] Date Time Provider Department ([id number]) 02/14/20 12:45 PM JESSICA JESUS (CHAZ) UCWSTR [...] Benign liver cyst 05/24/[address] [facility] 11/2009 and 04/2010 showe 4 mm increase in size . No pain. No elevated LFTs on 03/11/2010. - Calculus of kidney 05/17/[address] Nicolas: Hospitalized age 20, a nd again later -- no procedures so far ([facility], [facility], [address] [facility]) - Dysmenorrhea - Impaired fasting glucose 05/17/2008 [...] DAILY September 02, 2019 5:34am 12-20-2 019 [facility] ([id number]) - ondansetron orally disintegrating (ZOFRAN ODT) 4 [...] TOTAL ABDOM HYSTERECTOMY 08/31/06 Hysterectomy, [facility] FAMILY HISTORY Problem Relation Age of Onset [...] Approx. 3 cigarettes daily-1 pack every w [place] Substance Use Topics - Alcohol use: Yes [...] (METRONIDAZOLE HCL) 03/11/2010 12 - Shortness of [place]ow th IBUPROFEN 06/18/2016 8 - GI Upset [...] mLRfl: 0 FUNGAL SCREEN [SQFUNGSC] Order #: [id number] Prescriptions as of 02/14/2020 Sig: PROMETHAZINE 25 [...] JESUS PA-C on 02/14/20 cnpn on 2020-02-13 [facility]) Normal 02-13-2020 [place] SALLY Martinez ([id number]) 1980 Don[facility] M[facility] Date Time Provider Department ([id number]) 02/13/20 MARCELINO MEJIAPWS During your visit today, we recorded the following informati on about you: Christopher Carcamo RN 02/13/2020 10:27 AM Signed Patient reports she was discharged from [facility] yesterday, after a 4 day stay, for pancreatitis. Scheduled f/u visit with PA, for tomorro w. Patient asking note be sent to provider also. Reports she still has a sore on he r tongue, [facility] doctor was not concerned about it. She [...] (METRONIDAZOLE HCL) 03/11/2010 12 - Shortness of [place] th IBUPROFEN 06/18/2016 8 - GI Upset PENICILLINS 12/07/2009 2 - Rash PREDNISONE 06/18/2016 14 - Other: See Comments Comments: makes agitated and mean Date Reviewed: 01/02/2020 Reviewed by: Ashley Lehman Ma - Fully Assessed Reason for Visit: [facility] visit [Other] Prescriptions as of 02/13/2020 Sig: [...] Encounter Status:Closed by ROXANNE PATEL on [facility] Normal 02-09-2020 [place] [facility] SALLY MCGREGOR ([id number]) 1980 [facility] Date Time Provider Department ([id number]) 02/09/20 [facility] During your visit today, we recorded [...] calls back, stating she is currently at [facility] ER. States she had labs done and [...] 02/09/20 progress on 2020-01 PROGRESS HNO ID: [id number] Normal 02-08-2020 [facility] Author: Isabel Romero) [place] ([id number]) Service: ? Author Type: Physician Certified Physician'S Assistant Type: Progress Notes Filed: 02/08/2020 10:57 AM Note Text: DISTANCE HEALTH VISIT This Team Access Model visit is a phone encounter. It requir ed patient-provider interaction for the medical decision making as documented below. No video was used for evaluation of this patient. Patient consents to visit. Patient location: [place] c[place]gregor is a 39 year old female seen [...] per patient report who presented to the [facility] ED on 02/01/20 with i ntermittent epigastric [...] seroquel and she has talked with ps [facility] office for what to do next. She has been taking oxycodone every 4 hours but has not need any yet today. Does mention a sore on her forearm. States getting worse. Red and hardened. 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 States she noticed it first in hospital. She is unable to send picture or have video conference. Is w illing to come to . HISTORY REVIEWED (electronic chart updated): - medical history - medications - allergies REVIEW OF SYSTEMS: As noted in HPI PHYSICAL EXAMINATION: [facility] 08/10/2006 No vitals taken. Deferred physical exam [...] minutes progress on 2020-01 PROGRESS HNO ID: [id number] Normal 02-07-2020 [facility] Author: Yvette Huffman RN [place] ([id number]) Service: ? Author Type: ? Type: Progress [...] might be hidden SUMMARY: -Pt discharged from [facility] on 02-05-2020. -Follow up appointment on 02-08-2020. [...] per patient report who presented to the [facility] ED on 02/01/20 with i ntermittent epigastric [...] CNPTOUTREACH Patient Outreach (FAMPWS) Normal 0 02-07-2020 [place] Debra SALLY MCGREGOR ([id number]) 1980 F [place] [facility] Time Provider Department ([id number]) 02/07/20 MARCELINO MEJIA During your visit today, [...] might be hidden SUMMARY: -Pt discharged from [facility] on 02-05-2020. -Follow up appointment on 02-08-2020. 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 ED on 02/01/20 with intermittent epigastric pain [...] (METRONIDAZOLE HCL) 03/11/2010 12 - Shortness of [place] IBUPROFEN 06/18/2016 8 - GI Upset [...] 02/07/20 emergency report on 2020-01-28 EMERGENCY REPORT [facility] Normal 01-27 [facility] EMERGENCY ROOM REPORT ([id number]) NAME ACCOUNT SEX AGE ADMIT DISCHARGE PT MED. RECORD# NUMBER DATE DATE TYPE SAM, [id number] F 39 01/20/20 01/21/20 [place] ZHENG [id number] ROOM: ER DATE OF : 1980 DICTATING [...] PHYSICAL EXAMINATION: Physic al examination reveals a yag-gji-llkknjamh female in no acute distress, resting c [...] plan for transfer to an outside [facility] for further management. Discussed the patient with Dr. Coleman at [facility], who accepted the patient for admission. The patient was transferred to [facility] in stable condition. Dictated By: Ana Alcantar MD 01/21/20 01:30 JOB #: [id number] Transcribed By: thanh 01/21/20 10:04 Electronically signed by: Jennifer Perez MD 01/28/20 00:29 Page 2 of 2 SALLY MCGREGOR Emergency Room Report myco on 2020-01-26 Mycoplasma IgG POS Normal 01-26-2020 [facility] ([place]) ([id number]) Comment: Result Comment: INTERPRETATI ON OF MYCOPLASMA [...] CBC, ADIF F, ANEU, BMP, GFR #### [place] [address] progress on 2020-01 PROGRESS HNO ID: [id number] Normal 01-25-2020 [facility] Author: Roxanne Patel [place] ([id number]) Service: ? Author Type: Wind Tunnel Technician Type: Progress Notes Filed: 01/25/2020 7:39 AM Note Text: Te made to get setup. Roxanne Patel MA cnpn on 2020-01-25 CNPN Telephone (FAMPWS) Normal 01-25-2020 [place] [facility] SALLY MCGREGOR ([id number]) 1980 [facility] Date Time Provider Department ([id number]) 01/25/20 ISABEL ARIAS) [facility] During your visit today, we recorded the following informati on about you: Roxanne Patel MA, MA 01/25/2020 7:39 AM Signed Please help patient get setup for MRI. BROCK Fritz Pss 01/25/2020 11:05 AM Signed Attempted to reach patient and she does not have a voice m ail set up Trying to schedule an MRI of the Brain [facility] 01/25/2020 3:35 PM Signed Spoke with patient [...] (METRONIDAZOLE HCL) 03/11/2010 12 - Shortness of [place] IBUPROFEN 06/18/2016 8 - GI Upset [...] 01/26/20 progress on 2020-01 PROGRESS HNO ID: [id number] Normal 01-24-2020 [facility] Author: Isabel (Pa-Kimmie) [place] ([id number]) Service: ? Author Type: Physician Certified Physician'S Assistant Type: Progress Notes Filed: 01/24/2020 4:03 PM Note Text: DISTANCE HEALTH VISIT This Team Access Model visit is a phone encounter. It requir ed patient-provider interaction for the medical decision making as documented below. No video was used for evaluation of this patient. Patient consents to visit. Patient's location: [place] Chief Complaint No chief complaint on file. [...] patient was to see pain specialist in [facility]. She has missed or cancelled appointments due [...] over the weekend. She was transferred to [place] in [place]. Reports n ot available but patient states ECHO and labs were normal. . States she received a phone call from an dexter And was told negative for Covid. But [...] pharmacy. She did receive phone call from jukebox operator last week and w ill be set up for heart monitor. She was suppose to have stress testing done at [facility] today and Carotid US done yesterday, but [...] Benign liver cyst 05/24/[address] [facility] 11/2009 and 04/2010 showe 4 mm increase in size . No pain. No elevated LFTs on 03/11/2010. - Calculus of kidney 05/17/[address] Nicolas: Hospitalized age 20, and again later -- no procedures so far ([facility], [facility], [address] [facility]) - Dysmenorrhea - Impaired fasting glucose 05/17/2008 [...] TOTAL ABDOM HYSTERECTOMY 08/31/06 Hysterectomy, [facility] Family History FAMILY HISTORY Problem Relation Age [...] MG DAILY September 02, 2019 5:34am 09-02-2019 [facility] ([id number]) - ondansetron orally disintegrating (ZOFRAN ODT) 4 [...] mg capsule Take 1 capsule by mo prh daily at bedtime for 90 days. - [...] Approx. 3 cigarettes daily-1 pack every w [place] Substance Use Topics - Alcohol use: Yes [...] - ICD9: 786.59, ICD10: R07.89 Continue with jukebox operator. Will attempt to get records to [...] I would not be writing a letter. ISABLE ARIAS PA-C Total appointment time on phone with patient = 40 minutes covid on 2020-01-24 COVID 19 Result OYSTER CULLER See Below [facility] Normal 01-24-2020 [facility] ([place]) (0000 0) Comment: Result Comment: Negative Negative for COVID19 (SARS C oV2) by PCR. This test was developed and its performance characteristics determined by [facility] [place]. This test has bee n authorized by [...] issued on November 12, 2019. Performed By: [facility] [place] [address] Bale Sewer: Raphael liriano III, M.D. CLIA#: [id number] Phone#: Performed By: #### CBC, ADIF F, ANEU, BMP, GFR #### [place] [address] COVID 19 Source OYSTER CULLER See Below Normal 01-24-2020 [facility] ([place]) ([address]280) Comment: Result Comment: Nasopharynge al Swab Performed By: [facility] [employer] [place] [address] Bale Sewer: Raphael liriano III, M.D. CLIA#: [id number] Phone#: Performed By: #### CBC, ADIF F, ANEU, BMP, GFR #### [address] [address] myco on 2020-01-23 Mycoplasma IgM Negative Normal 01-23-2020 [facility] ([place]) (10350) Comment: Result Comment: INTERPRETATI ON OF MYCOPLASMA [...] CBC, ADIF F, ANEU, BMP, GFR #### [address] [address] crp on 2020-01-23 CRP [Mass/Vol] 0.57 <=0.80 mg/dL Normal 01-23-2020 [facility] ([place]) ([id number]) Comment: Performed By: #### CBC, ADIF F, ANEU, BMP, GFR #### [address] [address] cnpn on 2020-01-23 CNPN Telephone (FAMPWS) Normal 01-23-2020 [place] [facility] SALLY MCGREGOR ([id number]) 1980 F [place] Date Time Provider Department ([id number]) 01/23/20 ISABEL ARIAS (MAYA) FAMPWS During your visit today, we recorded the following informati on about you: Lexy Tapia RN 01/23/2020 8:55 AM Signed fyi-Patient calls to report that she went to [facility] with chest pain. Transferred to [facility] and Echo was normal. She will have [...] Please reschedule her for later this w [place] so we have time to get the [...] insurance there is not Uber drivers in [facility] so waiting o n community action [...] Erythrocyte distribution 14.1 11.5-15.5 % Normal 01-22 [facility] (RBC) [Ratio] [facility] ([place]) (07147) Comment: Performed By: #### CBC, ADIF F, ANEU, BMP, GFR #### [address] [address] Hematocrit (Bld) [Volume 35.6 34.0-46.0 % Normal 01-22 [facility] fraction] ([place]) (0000 0) Comment: Performed By: #### CBC, ADIF F, ANEU, BMP, GFR #### [address] [address] Hemoglobin (Bld) 11.9 12.0-16.0 G/dL Low 01-23-2020 [facility] [Mass/Vol] ([place]) (000 00) Comment: Performed By: #### CBC, ADIF F, ANEU, BMP, GFR #### [address] [address] MCH (RBC) [Entitic mass] 30.0 27.0-33.0 pg Normal 01-22 [facility] ([place]) (0000 0) Comment: Performed By: #### CBC, ADIF F, ANEU, BMP, GFR #### [address] [address] MCHC (RBC) [Mass/Vol] 33.4 32.0-36.0 G/dL Normal 01-23-20 20 [facility] ([place]) (0000 0) Comment: Performed By: #### CBC, ADIF F, ANEU, BMP, GFR #### [address] [address] MCV (RBC) [Entitic vol] 89.8 80.0-99.0 fL Normal 2019 [facility] ([place]) (0000 0) Comment: Performed By: #### CBC, ADIF F, ANEU, BMP, GFR #### [place] [id number] Platelet mean volume 8.5 6.6-10.5 fL Normal 0 [facility] (Bld) [Entitic vol] ([place]) ([address]78) Comment: Performed By: #### CBC, ADIF F, ANEU, BMP, GFR #### [address] [address] Platelets (Bld) [#/Vol] 235 150-450 10 3/mcL Normal 2019 [facility] ([place]) (14368) Comment: Performed By: #### CBC, ADIF F, ANEU, BMP, GFR #### [address] [address] RBC (Bld) [#/Vol] 3.97 4.10-5.30 10 6/mcL Low 01-23-2020 [facility] ([place]) (0000 0) Comment: Performed By: #### CBC, ADIF F, ANEU, BMP, GFR #### [address] [address] WBC (Bld) [#/Vol] 10.20 4.50-10.80 10 3/mcL Normal 01-23-2020 [facility] ([place]) (48768) Comment: Performed By: #### CBC, ADIF F, ANEU, BMP, GFR #### [address] [address] bmp on 2020-01-23 Creatinine [Mass/Vol] 0.94 0.50-1.20 mg/dL Normal 01-23-20 20 [facility] ([place]) (14213) Comment: Performed By: #### CBC, ADIF F, ANEU, BMP, GFR #### [address] [address] Urea nitrogen/Creatinine 20.2 10.0-22.0 ratio Normal 01-22 [facility] [Mass ratio] [facility] ([place]) ([address]406) Comment: Performed By: #### CBC, ADIF F, ANEU, BMP, GFR #### [address] [address] Calcium [Mass/Vol] 9.4 8.4-10.1 mg/dL Normal 01-23-2020 [facility] ([place]) (0000 0) Comment: Performed By: #### CBC, ADIF F, ANEU, BMP, GFR #### [address] [address] Chloride [Moles/Vol] 106 98-110 mEq/L Normal 0 [facility] ([place]) (0000 0) Comment: Performed By: #### CBC, ADIF F, ANEU, BMP, GFR #### [address] [address] CO2 [Moles/Vol] 28 22-32 mEq/L Normal 01-23-2020 [facility] ([place]) (92048) Comment: Performed By: #### CBC, ADIF F, ANEU, BMP, GFR #### [address] [address] Electrolyte Balance 6.0 4.0-15.0 mEq/L Normal 01-23-2020 [facility] ([place]) (0000 0) Comment: Performed By: #### CBC, ADIF F, ANEU, BMP, GFR #### [address] [address] Glucose [Mass/Vol] 91 70-110 mg/dL Normal 01-23-2020 [facility] ([place]) (12528) Comment: Performed By: #### CBC, ADIF F, ANEU, BMP, GFR #### [address] [address] Potassium [Moles/Vol] 4.2 3.5-5.0 mEq/L Normal 01-23-20 20 [facility] ([place]) (0000 0) Comment: Performed By: #### CBC, ADIF F, ANEU, BMP, GFR #### [address] [address] Sodium [Moles/Vol] 140 136-145 mEq/L Normal 01-23-2020 [facility] ([place]) (78132) Comment: Performed By: #### CBC, ADIF F, ANEU, BMP, GFR #### [address] [address] Urea nitrogen [Mass/Vol] 19.0 8.0-22.0 mg/dL Normal 01-22 [facility] ([place]) (12133) Comment: Performed By: #### CBC, ADIF F, ANEU, BMP, GFR #### [address] [address] .morph on 2020-01-13 1 Platelets (Bld) [#/Vol] Normal Normal 2019 [facility] ([place]) (26616) Comment: Result Comment: Few large pl atelets seen. Performed By: #### CBC, ADIF F, ANEU, BMP, GFR #### [address] [address] RBC morphology finding Nom Normal Normal [facility] (d) ([place]) (0000 0) Comment: Performed By: #### CBC, ADIF F, ANEU, BMP, GFR #### [address] [address] .manual diff on -01-22 Basophil %, Manual 0.0 0.0-2.5 % Normal 01-23-2020 [facility] ([place]) ([address]500) Comment: Performed By: #### CBC, ADIF F, ANEU, BMP, GFR #### [address] [address] Basophil, Abs Manual 0.00 0.00-0.27 10 3/mcL Normal 0 [facility] ([place]) ([address]98) Comment: Performed By: #### CBC, ADIF F, ANEU, BMP, GFR #### [address] [address] Cells Counted 100 Normal 01-23-2020 [facility] ([place]) (90653) Comment: Performed By: #### CBC, ADIF F, ANEU, BMP, GFR #### [address] [address] Eosinophil %, Manual 0.0 0.0-6.0 % Normal 0 [facility] ([place]) (91475) Comment: Performed By: #### CBC, ADIF F, ANEU, BMP, GFR #### [address] [address] Eosinophil, Abs Manual 0.00 0.00-0.65 10 3/mcL Normal 020 [facility] ([place]) (09905) Comment: Performed By: #### CBC, ADIF F, ANEU, BMP, GFR #### [place] [address] Lymphocyte %, Manual 16.0 20.0-40.0 % Low 0 [facility] ([place]) (13351) Comment: Performed By: #### CBC, ADIF F, ANEU, BMP, GFR #### [address] [address] Lymphocyte, Abs Manual 1.63 0.90-4.32 10 3/mcL Normal 020 [facility] ([place]) (63859) Comment: Performed By: #### CBC, ADIF F, ANEU, BMP, GFR #### [place] [address] Monocyte %, Manual 5.0 2.0-13.0 % Normal 01-23-2020 [facility] ([place]) (60461) Comment: Performed By: #### CBC, ADIF F, ANEU, BMP, GFR #### [place] [id number] Monocyte, Abs Manual 0.51 0.09-1.40 10 3/mcL Normal 0 [facility] ([place]) (93339) Comment: Performed By: #### CBC, ADIF F, ANEU, BMP, GFR #### [address] [address] Neutrophil %, Manual 79.0 50.0-75.0 % High 0 [facility] ([place]) (63992) Comment: Performed By: #### CBC, ADIF F, ANEU, BMP, GFR #### [place] [address] Neutrophil, Abs Manual 8.06 2.25-8.10 10 3/[facility] Normal 020 [facility] ([place]) (35448) Comment: Performed By: #### CBC, ADIF F, ANEU, BMP, GFR #### [address] [address] .gfr on 2020-01-23 GFR >60 Normal 0 [facility] ([place]) (63038) Comment: Result Comment: GFR Population mean for Afri can Nigerian, Non- Americans Ages 20-29 = 116 mL/min/1.73 [...] CBC, ADIF F, ANEU, BMP, GFR #### [place] [address] GFR Non- >60 Normal 01-22 -2019 [facility] ([place]) (06748) Comment: Result Comment: GFR Population mean for Afri can Nigerian, Non- Americans Ages 20-29 = 116 mL/min/1.73 [...] CBC, ADIF F, ANEU, BMP, GFR #### [address] [address] spag on 2020-01-22 SPAG . Normal 01-22-2020 [facility] - Microbiology [facility] ([facility] (60925) PROCEDURE: Streptococcus Pneumoniae Urine Antig [^1 *1] [...] Locations *1: This test was performed at: [facility], [address] [place] [address], [address]- , [place] Comment: Performed By: #### CBC, ADIF F, ANEU, BMP, GFR #### [address] [address] respid on 2020-01-13 0 Adenovirus Not Detected Not Detected Normal 01-22-2020 [facility] ([place]) (0000 0) Comment: Performed By: #### CBC, ADIF F, ANEU, BMP, GFR #### [address] [address] Bordetella Not Detected Not Detected Normal 01-22-2020 [facility] ([place] ([address]14) Comment: Performed By: #### CBC, ADIF F, ANEU, BMP, GFR #### [address] [address] Bordetella Pertussis Not Detected Not Detected Normal [facility] ([place]) (27613) Comment: Performed By: #### CBC, ADIF F, ANEU, BMP, GFR #### [address] [address] Chlamydophila Not Detected Not Detected Normal 01-22-2020 [facility] pneumoniae Foundatio n ([place]) (24274) Comment: Performed By: #### CBC, ADIF F, ANEU, BMP, GFR #### [address] [address] Coronavirus 229E Not Detected Not Detected Normal [facility] (Not COVID-19) Found ation ([place]) (13497) Comment: Performed By: #### CBC, ADIF F, ANEU, BMP, GFR #### [address] [address] Coronavirus HKU1 Not Detected Not Detected Normal 020 [facility] (Not COVID-19[facility] ([address]) Comment: Performed By: #### CBC, ADIF F, ANEU, BMP, GFR #### [address] [address] Coronavirus NL63 Not Detected Not Detected Normal 020 [facility] (Not COVID-19) Found [place]ion ([place]) (46157) Comment: Performed By: #### CBC, ADIF F, ANEU, BMP, GFR #### [address] [address] Coronavirus OC43 Not Detected Not Detected Normal 020 [facility] (Not COVID-19) Found [place] ([place]) (52705) Comment: Performed By: #### CBC, ADIF F, ANEU, BMP, GFR #### [place] [address] Human Metapneumovirus Not Detected Not Detected Normal [facility] ([place]) (86562) Comment: Performed By: #### CBC, ADIF F, ANEU, BMP, GFR #### [place] [address] Influenza A Not Detected Not Detected Normal 01-22-2020 A [facility] ([place]) (0000 0) Comment: Performed By: #### CBC, ADIF F, ANEU, BMP, GFR #### [place] [address] Influenza B Not Detected Not Detected Normal 01-22-2020 A [facility] ([place]) (0000 0) Comment: Performed By: #### CBC, ADIF F, ANEU, BMP, GFR #### [place] [address] Mycoplasma Not Detected Not Detected Normal 01-22-2020 [facility] ([place]) (64153) Comment: Performed By: #### CBC, ADIF F, ANEU, BMP, GFR #### [place] [address] Parainfluenza 1 Not Detected Not Detected Normal 01-22-20 20 [facility] ([place]) (28974) Comment: Performed By: #### CBC, ADIF F, ANEU, BMP, GFR #### [place] [address] Parainfluenza 2 Not Detected Not Detected Normal 01-22-20 20 [facility] ([place]) (88971) Comment: Performed By: #### CBC, ADIF F, ANEU, BMP, GFR #### [place] [address] Parainfluenza 3 Not Detected Not Detected Normal 01-22-20 [facility] ([place]) (36145) Comment: Performed By: #### CBC, ADIF F, ANEU, BMP, GFR #### [place] [address] Parainfluenza 4 Not Detected Not Detected Normal 01-22-20 [facility] ([place]) (62553) Comment: Performed By: #### CBC, ADIF F, ANEU, BMP, GFR #### [address] [address] Respiratory Not Detected Not Detected Normal 01-22-2020 A [facility] Syncytial Virus Foun dation ([place]) (48358) Comment: Performed By: #### CBC, ADIF F, ANEU, BMP, GFR #### [address] [address] Rhinovirus/Enterovirus Not Detected Not Detected Normal 0 01-22-2020 [facility] ([place]) (38914) Comment: Performed By: #### CBC, ADIF F, ANEU, BMP, GFR #### [address] [address] sonali on 2020-01-22 SOANLI . Normal 01-22-2020 [facility] MICRO - Microbiology [facility] ([place]) (48412) PROCEDURE: Legionella Urine Ag [*1] SOURCE: Urine [...] Locations *1: This test was performed at: [facility], [address] [place] [address], [address]- , [place] Comment: Performed By: #### CBC, ADIF F, ANEU, BMP, GFR #### [address] [address] ldh on 2020-01-22 LDH 194 120-246 U/L Normal 01-22-2020 [facility]) (29893) Comment: Performed By: #### CBC, ADIF F, ANEU, BMP, GFR #### [facility] [address] [place] [address] fib on 2020-01-22 Fibrinogen 414 250-550 mg/dL Normal 01-22-2020 [facility] ([place]) (22977) Comment: Performed By: #### CBC, ADIF F, ANEU, BMP, GFR #### [facility] [address] [place] [address] ferr on 2020-01-22 Ferritin [Mass/Vol] 40 8-252 ng/mL Normal 01-22-2020 [facility] ([place]) (85960) Comment: Performed By: #### CBC, ADIF F, ANEU, BMP, GFR #### [facility] [address] [place] [address] dimer on 2020-01-22 Fibrin D-dimer FEU IA <200 0-230 ug/mL Normal 01-22-20 20 [facility] (d) [Mass/Vol] ([place] ) (98640) Comment: Result Comment: Results repo rted in [...] CBC, ADIF F, ANEU, BMP, GFR #### [facility] [address] [place] [address] [address] angiography chest w/contrast on 2020-01-22 CT ANGIOGRAPHY ORIGINAL Normal 01-22-2020 [facility] CHEST W/CONTRAST CT PULMONARY ANGIOGRAM WITH IV CONTRAST: with post-processing, volume rendering and 3-D acquisitions. This exam was performed according to our departmental dose optimization program, and includes the [facility] ([place]) llowing measures where appli cable: automated exposure control, adjustment of the mAs and/or kVp according to patient size and/or exam, and an iterative reconstruction algorithm. Patient received 13 hour (21814) contrast allergy preparation. CLINICAL STATEMENT: elevated d [...] Erythrocyte distribution 13.7 11.5-15.5 % Normal 01-21 [facility] width (RBC) [Ratio] [facility] ([place]) (47048) Comment: Performed By: #### CBC, ADIF F, ANEU, BMP, GFR #### [facility] [address] [place] [address] Hematocrit (Bld) [Volume 36.0 34.0-46.0 % Normal 01-21 [facility] fraction] ([place]) (0000 0) Comment: Performed By: #### CBC, ADIF F, ANEU, BMP, GFR #### [place] [address] Hemoglobin (Bld) 11.9 12.0-16.0 G/dL Low 01-22-2020 [facility] [Mass/Vol] ([place]) (000 00) Comment: Performed By: #### CBC, ADIF F, ANEU, BMP, GFR #### [place] [address] MCH (RBC) [Entitic mass] 29.6 27.0-33.0 pg Normal 01-21 [facility] ([place]) (0000 0) Comment: Performed By: #### CBC, ADIF F, ANEU, BMP, GFR #### [place] [address] MCHC (RBC) [Mass/Vol] 33.0 32.0-36.0 G/dL Normal 01-22-20 20 [facility] ([place]) (0000 0) Comment: Performed By: #### CBC, ADIF F, ANEU, BMP, GFR #### [place] [address] MCV (RBC) [Entitic vol] 89.8 80.0-99.0 fL Normal 2019 [facility] ([place]) (0000 0) Comment: Performed By: #### CBC, ADIF F, ANEU, BMP, GFR #### [place] [address] Platelet mean volume 8.6 6.6-10.5 fL Normal 0 [facility] (Bld) [Entitic vol] ([place]) (69913) Comment: Performed By: #### CBC, ADIF F, ANEU, BMP, GFR #### [place] [id number] Platelets (Bld) [#/Vol] 269 150-450 10 3/mcL Normal 2019 [facility] ([place]) (58184) Comment: Performed By: #### CBC, ADIF F, ANEU, BMP, GFR #### [address] [address] RBC (Bld) [#/Vol] 4.01 4.10-5.30 10 6/mcL Low 01-22-2020 [facility] ([place]) (0000 0) Comment: Performed By: #### CBC, ADIF F, ANEU, BMP, GFR #### [address] [address] WBC (Bld) [#/Vol] 12.20 4.50-10.80 10 3/mcL High 01-22-2020 [facility] ([place]) (0000 0) Comment: Performed By: #### CBC, ADIF F, ANEU, BMP, GFR #### [address] [address] bmp on 2020-01-22 Calcium [Mass/Vol] 9.5 8.4-10.1 mg/dL Normal 01-22-2020 [facility] ([place]) (0000 0) Comment: Performed By: #### CBC, ADIF F, ANEU, BMP, GFR #### [place] [id number] Chloride [Moles/Vol] 106 98-110 mEq/L Normal 0 [facility] ([place]) (0000 0) Comment: Performed By: #### CBC, ADIF F, ANEU, BMP, GFR #### [address] [address] CO2 [Moles/Vol] 24 22-32 mEq/L Normal 01-22-2020 [facility] ([place]) (86192) Comment: Performed By: #### CBC, ADIF F, ANEU, BMP, GFR #### [address] [address] Creatinine [Mass/Vol] 0.76 0.50-1.20 mg/dL Normal 01-22-20 20 [facility] ([place]) (33985) Comment: Performed By: #### CBC, ADIF F, ANEU, BMP, GFR #### [address] [address] Electrolyte Balance 6.0 4.0-15.0 mEq/L Normal 01-22-2020 [facility] ([place]) (0000 0) Comment: Performed By: #### CBC, ADIF F, ANEU, BMP, GFR #### [address] [address] Glucose [Mass/Vol] 149 70-110 mg/dL High 01-22-2020 [facility] ([place]) (21525) Comment: Performed By: #### CBC, ADIF F, ANEU, BMP, GFR #### [address] [address] Potassium [Moles/Vol] 4.1 3.5-5.0 mEq/L Normal 01-22-20 [facility] ([place]) (0000 0) Comment: Performed By: #### CBC, ADIF F, ANEU, BMP, GFR #### [address] [address] Sodium [Moles/Vol] 136 136-145 mEq/L Normal 01-22-2020 [facility] ([place]) (62120) Comment: Performed By: #### CBC, ADIF F, ANEU, BMP, GFR #### [address] [address] Urea nitrogen [Mass/Vol] 12.0 8.0-22.0 mg/dL Normal 01-21 [facility] ([place]) (35586) Comment: Performed By: #### CBC, ADIF F, ANEU, BMP, GFR #### [address] [address] Urea nitrogen/Creatinine 15.8 10.0-22.0 ratio Normal 01-21 [facility] [Mass ratio] [facility] ([place]) (75577) Comment: Performed By: #### CBC, ADIF F, ANEU, BMP, GFR #### [address] [address] .neuabs on Neutrophils (Bld) 10.70 2.25-8.10 10 3/mcL High 01-22-2020 [facility] [#/Vol] [facility] ([place]) (33278) Comment: Performed By: #### CBC, ADIF F, ANEU, BMP, GFR #### [address] [address] .gfr on 2020-01-22 GFR Non- >60 Normal 01-21 [facility] ([place]) (67240) Comment: Result Comment: GFR Population mean for Afri can Nigerian, Non- Americans Ages 20-29 = 116 mL/min/1.73 [...] CBC, ADIF F, ANEU, BMP, GFR #### [place] [id number] GFR >60 Normal 0 [facility] ([place]) (87666) Comment: Result Comment: GFR Population mean for Afri can Nigerian, Non- Americans Ages 20-29 = 116 mL/min/1.73 [...] CBC, ADIF F, ANEU, BMP, GFR #### [address] [address] .auto diff on 01-21 Ammonia (P) [Mass/Vol] 0.30 0.09-1.40 10 3/mcL Normal 01-21-2 020 [facility] ([place]) (28553) Comment: Performed By: #### CBC, ADIF F, ANEU, BMP, GFR #### [address] [address] Basophils (Bld) 0.00 0.00-0.27 10 3/mcL Normal 01-22-2020 [facility] [#/Vol] [facility] ([place]) (04319) Comment: Performed By: #### CBC, ADIF F, ANEU, BMP, GFR #### [address] [address] Basophils/100 WBC (Bld) 0.3 0.0-2.5 % Normal 2019 [facility] ([place]) (0000 0) Comment: Performed By: #### CBC, ADIF F, ANEU, BMP, GFR #### [address] [address] Eosinophils (Bld) 0.00 0.00-0.65 10 3/mcL Normal 01-22-2020 [facility] [#/Vol] [facility] ([place]) (31574) Comment: Performed By: #### CBC, ADIF F, ANEU, BMP, GFR #### [address] [address] Eosinophils/100 WBC (Bld) 0.1 0.0-6.0 % Normal 01-12 0 [facility] ([place]) (0000 0) Comment: Performed By: #### CBC, ADIF F, ANEU, BMP, GFR #### [address] [address] Lymphocytes (Bld) 1.10 0.90-4.32 10 3/mcL Normal 01-22-2020 [facility] [#/Vol] [facility] ([place]) (83144) Comment: Performed By: #### CBC, ADIF F, ANEU, BMP, GFR #### [address] [address] Lymphocytes/100 WBC (Bld) 9.3 20.0-40.0 % Low - 0-2019 [facility] ([place]) (0000 0) Comment: Performed By: #### CBC, ADIF F, ANEU, BMP, GFR #### [address] [address] Monocytes/100 WBC (Bld) 2.2 2.0-13.0 % Normal 2019 [facility] ([place]) (0000 0) Comment: Performed By: #### CBC, ADIF F, ANEU, BMP, GFR #### [address] [address] Neutrophils/100 WBC (Bld) 88.1 50.0-75.0 % High 01-12 [facility] ([place]) (0000 0) Comment: Performed By: #### CBC, ADIF F, ANEU, BMP, GFR #### [address] [address] urinalysis with microscopy on 2020-01-21 Amorphous NONE Normal 01-21-2020 [facility] (49909) Comment: Performed By: #### [id number] ## ## [facility],[address] [place] [address] Bacteria LM.HPF (Urine sed) 3+ Normal [facility] [#/Area] [facility] ( 02741) Comment: Performed By: #### [id number] ## ## [facility],[address] [place] [address] Bilirubin [Mass/Vol] NEG NORMAL: NEGATIVE mg/dL Normal [facility] ospital (10443) Comment: Performed By: #### [id number] ## ## [facility],[address] [place] [address] Blood 10 NORMAL: NEGATIVE Abnormal 01-21-2020 [facility] (69707) Comment: Performed By: #### [id number] ## ## [facility],[address] [place] [address] Casts LM.LPF (Urine sed) NONE Normal 01-20 [facility] [#/Area] [facility] ( 97069) Comment: Performed By: #### [id number] ## ## [facility],[address] [place] [address] Clarity (U) sl.cloudy NORMAL: CLEAR Normal 01-21-2020 [facility] ( 39439) Comment: Performed By: #### [id number] ## ## [facility] [place] [address] Color (U) p.yel NORMAL: YELLOW Normal 01-21-2020 [facility] (35542) Comment: Performed By: #### [id number] ## ## [facility],[address] [place] [address]006 Crystals LM Nom (Urine sed) NONE Normal [facility] ( 24085) Comment: Performed By: #### [id number] ## ## [facility],[address] [place] [address] 25669 Epi Cells MANY Normal 01-21-2020 [facility] (11211) Comment: Performed By: #### [id number] ## ## [facility],[address] [place] [address] Glucose [Mass/Vol] NORM NORMAL: NORMAL Normal 2019 [facility] ( 65753) Comment: Performed By: #### [id number] ## ## [facility],[address] [place] [address] Ketone NEG NORMAL: NEGATIVE Normal 01-21-2020 [facility] (66820) Comment: Performed By: #### [id number] ## ## [facility],[address] [place] [address] Mucous NONE Normal 01-21-2020 [facility] (58864) Comment: Performed By: #### [id number] ## ## [facility],[address] [place] [address]958 Nitrite Ql (U) NEG NORMAL: NEGATIVE Normal 01-21-20 [facility] ( 13337) Comment: Performed By: #### [id number] ## ## [facility],[address] [place] [address]80 pH (Bld) 5 NORMAL: 5.0-8.0 Normal 01-21-2020 [facility] (40560) Comment: Performed By: #### [id number] ## ## [facility],[address] [place] [address]78 Protein (U) NEG NORMAL: NEGATIVE mg/dL Normal 01-21-2020 [facility] [Mass/Vol] [facility] (49854) Comment: Performed By: #### [id number] ## ## [facility],[address] [place] [address] Rbc 0-5 0-3 / hpf Normal 01-21-2020 [facility] (25391) Comment: Performed By: #### [id number] ## ## [facility],[address] [place] [address] Sp [place] 1.020 NORMAL: 1.010-1.030 Normal 0 [facility] ( 07193) Comment: Performed By: #### [id number] ## ## [facility],[address] [place] [address] Specimen type Nom (Spec) UNSPECIFIED Normal [facility] ( 17303) Comment: Performed By: #### [id number] ## ## [facility],[address] [place] [address] URINALYSIS WITH MICROSCOPY Normal [facility] (89686) Comment: Result Comment: URINALYSIS Performed By: #### [id number] ## ## [facility],[address] [place] [address]72 Urobilinog NORM NORMAL: NORMAL Normal 01-21-2020 [facility] (13537) Comment: Performed By: #### [id number] ## ## [facility],[address] [place] [address] Wbc 1-5 0-5 / hpf Normal 01-21-2020 [facility] (78282) Comment: Performed By: #### [id number] ## ## [facility],[address] [place] [address] WBC (Bld) [#/Vol] NEG NORMAL: NEGATIVE 10*3/uL Normal 01-20 [facility] (61968) Comment: Result Comment: URINE MICROS COPIC Performed By: #### [id number] ## ## [facility],[address] [place] [address]52 Yeast LM Ql (Urine sed) NONE Normal 2019 [facility] (18313) Comment: Performed By: #### [id number] ## ## [facility],[address] [place] [address] 38795 troponin on 2020-01 Troponin I.cardiac <0.01 0.00 - 0.05 ng/mL Normal 0 [facility] [Mass/Vol] [facility] (71208) Comment: Result Comment: Elevated tro ponin (above [...] as heterophile antibodi es). Performed By: #### [id number] ## ## [facility],[address] [place] [address] tropi on 2020-01-21 Troponin I.cardiac <0.015 0.000-0.040 ng/mL Normal 0 [facility] [Mass/Vol] [facility] ([place] (34385) Comment: Result Comment: Troponin I r eference ranges (05/22/14): 0.00-0.040 ng/mL Negative an d non-diagnostic. >0.040 ng/mL Consistent with cardiac damage, increased clinical risk and possibility of myocardial in farction. Serial measurements, a rise & fall in test results, clinical histo ry, appropriate symptoms and/or ECG changes may help assess possibility of PR. *Other non-acute coronary sy ndrome conditions such as CHF, myoc arditis, pulmonary emboli, sepsis and cardiac surgery could result in myoc ardial damage and increased troponi n levels. Performed By: #### TROPI ### # [place] [address] serum qual on 2020-01-21 EXTERNAL QC DONE? YES Normal 01-21-2020 [facility] (56042) Comment: Performed By: #### [id number] ## ## [facility],[address] [place] [address] INTERNAL QC PASS Normal 01-21-2020 [facility] (20518) Comment: Performed By: #### [id number] ## ## [facility],[address] [place], [place] [id number] SER NEGATIVE NEGATIVE Normal 01-21-2020 [facility] (82922) Comment: Performed By: #### [id number] ## ## [facility],[address] [place] [address] d-dimer, quantitative on 2020-01-21 D-DIMER QUANT 256 0 - 230 ng/ml High 01-21-2020 [facility] (36931) Comment: Performed By: #### [id number] ## ## [facility],[address] [place] [address]45 D-DIMER, QUANTITATIVE Normal 01-21-20 20 [facility] (89624) Comment: Result Comment: QUANT D-DIME R Performed By: #### [id number] ## ## [facility],[address] [place], [place] [id number] ct brain w/o contrast on 2020-01-21 CT BRAIN W/O [facility] Normal 0 [facility] [address] [place] [address] (78641) Patient: SALLY MCGREGOR Phone#: : 1980 Age: 39 Gender: F Pt. Type: ER Account: [id number] Location: 052 Ordering: DR. ANA ALCANTAR Exam Date: 01/20/202023:41 Family Phys: ISABEL ARIAS Charge Code: [id number] Physician: [place] Order #: [id number] DLP Dose#: [id number] PROCEDURE: CT BRAIN WITHOUT CONTRAST COMPARISON: [facility], CT, BRAIN W/O CON, 01/29/2017, 22:39. [...] 39 Gender: F Pt. Type: ER Account: [id number] Location: 052 Ordering: DR. ANA ALCANTAR Exam Date: 01/20/2020/23:41 Family Phys: ISABEL ARIAS Charge Code: [id number] Physician: [place] Order #: [id number] DLP Dose#: 57.50 Approved by: Kelsey Mae MD on 01/21/2020 at 18:04 cmp with egfr on 31-01-09 Age - Reported 39 years Normal 01-21-2020 [facility] (26653) Comment: Performed By: #### [id number] ## ## [facility],[address] [place] [address]755 Albumin [Mass/Vol] 4.3 3.4 - 4.8 g/dL Normal 01-21-2020 [facility] ( 08917) Comment: Performed By: #### [id number] ## ## [facility],[address] [place] [address] 79697 Albumin/Globulin [Mass 1.5 0.9 - 1.6 {ratio} Normal 020 [facility]] [facility] (26804) Comment: Performed By: #### [id number] ## ## [facility],[address] [place] [address] 23363 ALK PHOS 71 38 - 126 U/L Normal 01-21-2020 [facility] (96100) Comment: Performed By: #### [id number] ## ## [facility],[address] [place] [address] 99138 ALT/SGPT 11 8 - 35 U/L Normal 01-21-2020 [facility] (16461) Comment: Performed By: #### [id number] ## ## [facility],[address] [place] [address] 04563 Anion gap [Moles/Vol] 12 10 - 20 mmol/L Normal 01-21-20 [facility] ( 85496) Comment: Performed By: #### [id number] ## ## [facility],[address] [place] [address] 84012 AST/SGOT 12 13 - 39 U/L Low 01-21-2020 [facility] (90004) Comment: Performed By: #### [id number] ## ## [facility],[address] [place] [address] 02889 B/C RATIO 19 0 - 30 ratio Normal 01-21-2020 [facility] (61491) Comment: Performed By: #### [id number] ## ## [facility],1 [facility] [address] Bilirubin [Mass/Vol] 0.3 0.0 - 1.5 mg/dl Normal 0 [facility] ( 65412) Comment: Performed By: #### [id number] ## ## [facility],[address] [place] [address] 51168 Calcium [Mass/Vol] 9.2 8.6 - 10.2 mg/dl Normal 01-21-2020 [facility] ( 76078) Comment: Performed By: #### [id number] ## ## [facility],[address] [place] [address] 67727 Chloride [Moles/Vol] 102 98 - 107 mmol/L Normal 0 [facility] ( 87700) Comment: Performed By: #### [id number] ## ## [facility],[address] [place] [address] 59736 CO2 [Moles/Vol] 25.6 21.0 - 31.0 mmol/L Normal 01-21-2020 [facility] ( 10855) Comment: Performed By: #### [id number] ## ## [facility],[address] [place] [address] 17298 Creatinine [Mass/Vol] 1.1 0.6 - 1.2 mg/dl Normal 01-21-20 20 [facility] ( 79670) Comment: Performed By: #### [id number] ## ## [facility],[address] [place] [address] 56640 GFR/1.73 sq M >60 60 - 999 mL/min/{1.73_m2} Normal 0 [facility] non-blacks MDRD (000 00) (S/P/Bld) [Vol rate/Area] [...] OF AGE AND OLDER. Performed By: #### [id number] ## ## [facility],[address] [place] [address] 76978 GFR/1.73 sq M predicted among Normal 01-21-2020 [facility] non-blacks MDRD (S/P/Bld) [Vol Hospital (88001) rate/Area] Comment: Result Comment: COMPREHENSIV E METABOLIC PANEL Performed By: #### [id number] ## ## [facility],[address] [place] [address] 88789 GFR/1.73 sq M predicted 55 60 - 999 ML/MINUTE Low 2019 [facility] among non-blacks MDRD Hospital (89618) (S/P/Bld) [Vol rate/Area] Comment: Performed By: #### [id number] ## ## [facility],[address] [place] [address] 82266 Globulin (S) [Mass/Vol] 2.9 1.5 - 3.8 G/DL Normal 2019 [facility] ( 16750) Comment: Performed By: #### [id number] ## ## [facility],[address] [place] [address] 74838 Glucose [Mass/Vol] 100 74 - 106 mg/dl Normal 01-21-2020 [facility] ( 03749) Comment: Performed By: #### [id number] ## ## [facility],[address] [place] [address] 43627 Potassium [Moles/Vol] 3.6 3.5 - 5.1 mmol/L Normal 01-21-20 20 [facility] ( 84878) Comment: Performed By: #### [id number] ## ## [facility],[address] [place] [address] 02243 Protein [Mass/Vol] 7.2 6.4 - 8.3 g/dl Normal 01-21-2020 [facility] ( 58638) Comment: Performed By: #### [id number] ## ## [facility],[address] [place] [address] 81292 Sodium [Moles/Vol] 136 136 - 145 mmol/l Normal 01-21-2020 [facility] ( 64154) Comment: Performed By: #### [id number] ## ## [facility],[address] [place] [address] 46543 Urea nitrogen [Mass/Vol] 21 6 - 20 mg/dl High 01-20 [facility] ( 69515) Comment: Performed By: #### [id number] ## ## [facility],[address] [place] [address] 72470 chest 2 views on 31-01-[address] [facility] Normal 01-21-20 [facility] [address] [place] [address] (27437) Patient: SALLY MCGREGOR Phone#: : 1980 Age: 39 Gender: F Pt. Type: ER Account: [id number] Location: 052 Ordering: DR. ANA ALCANTAR Exam Date: 01/20/2020/23:45 Family Phys: ISABEL ARIAS Charge Code: [id number] Physician: [place] Order #: [id number] DLP Dose#: PROCEDURE: X-RAY CHEST 2 VIEWS COMPARISON: [facility], , CHEST 2 VIEWS, 11/25/2019, 0:08. [...] Erythrocyte distribution 13.6 11.5-15.5 % Normal 01-20 [facility] width (RBC) [Ratio] [facility] ([place]) (11403) Comment: Performed By: #### CBC, ADIF F, ANEU, BMP, GFR #### [address] [address] Hematocrit (Bld) [Volume 35.6 34.0-46.0 % Normal 01-20 [facility] fraction] ([place]) (0000 0) Comment: Performed By: #### CBC, ADIF F, ANEU, BMP, GFR #### [address] [address] Hemoglobin (Bld) 11.4 12.0-16.0 G/dL Low 01-21-2020 [facility] [Mass/Vol] ([place]) (000 00) Comment: Performed By: #### CBC, ADIF F, ANEU, BMP, GFR #### [address] [address] MCH (RBC) [Entitic mass] 29.5 27.0-33.0 pg Normal 01-20 [facility] ([place]) (0000 0) Comment: Performed By: #### CBC, ADIF F, ANEU, BMP, GFR #### [address] [address] MCHC (RBC) [Mass/Vol] 32.2 32.0-36.0 G/dL Normal 01-21-20 [facility] ([place]) (0000 0) Comment: Performed By: #### CBC, ADIF F, ANEU, BMP, GFR #### [address] [address] MCV (RBC) [Entitic vol] 91.7 80.0-99.0 fL Normal 2019 [facility] ([place]) (0000 0) Comment: Performed By: #### CBC, ADIF F, ANEU, BMP, GFR #### [place] [address] Platelet mean volume 8.6 6.6-10.5 fL Normal 0 [facility] (Bld) [Entitic vol] ([place]) (27776) Comment: Performed By: #### CBC, ADIF F, ANEU, BMP, GFR #### [place] [address] Platelets (Bld) [#/Vol] 250 150-450 10 3/mcL Normal 2019 [facility] ([place]) (19421) Comment: Performed By: #### CBC, ADIF F, ANEU, BMP, GFR #### [place] [address] RBC (Bld) [#/Vol] 3.88 4.10-5.30 10 6/mcL Low 01-21-2020 [facility] ([place]) (0000 0) Comment: Performed By: #### CBC, ADIF F, ANEU, BMP, GFR #### [place] [address] WBC (Bld) [#/Vol] 6.20 4.50-10.80 10 3/mcL Normal 01-21-2020 [facility] ([place]) (41728) Comment: Performed By: #### CBC, ADIF F, ANEU, BMP, GFR #### [place] [address] cbc + diff on 01-20 Basophils (Bld) 0.10 0.00 - 0.10 x10EE3/UL Normal 01-21-2020 [facility] [#/Vol] [facility] (44633) Comment: Performed By: #### [id number] ## ## [facility],[address] [place] [address] Basophils/100 WBC (Bld) 1.1 0.0 - 2.0 % Normal 2019 [facility] ( 23984) Comment: Performed By: #### [id number] ## ## [facility],[address] [place] [address] CBC + DIFF Normal 01-21-2020 [facility] (51164) Comment: Result Comment: CBC-COMPLETE BLOOD COUNT Performed By: #### [id number] ## ## [facility],[address] [place], [place] [id number] Eosinophils (Bld) 0.40 0.00 - 0.50 x10EE3/UL Normal 01-21-2020 [facility] [#/Vol] [facility] (24619) Comment: Performed By: #### [id number] ## ## [place] [id number] Eosinophils/100 WBC (Bld) 5.5 0.0 - 7.0 % Normal [facility] ( 18579) Comment: Performed By: #### [id number] ## ## [address] [address] Erythrocyte distribution 13.5 12.0 - 15.6 % Normal [facility] width (RBC) [Ratio] [facility] (31326) Comment: Performed By: #### [id number] ## ## [address] [address] Hematocrit (Bld) [Volume 33.8 34.0 - 46.0 % Low [facility] fraction] [facility] ( 03984) Comment: Performed By: #### [id number] ## ## [address] [address] Hemoglobin (Bld) 11.7 12.0 - 16.0 g/dl Low 01-21-2020 [facility] [Mass/Vol] [facility] (24858) Comment: Performed By: #### [id number] ## ## [address],[place] [address] Lymphocytes (Bld) 2.30 0.80 - 2.80 x10EE3/UL Normal 01-21-2020 [facility] [#/Vol] [facility] (74639) Comment: Performed By: #### [id number] ## ## [place] [id number] Lymphocytes/100 WBC (Bld) 30.4 20.0 - 45.0 % Normal [facility] ( 27056) Comment: Performed By: #### [id number] ## ## [address] [address] MANUAL DIFF N/A Normal 01-21-2020 [facility] (28695) Comment: Performed By: #### [id number] ## ## [address] [address] MCH (RBC) [Entitic mass] 31 27 - 33 pg Normal 01-20 [facility] ( 00904) Comment: Performed By: #### [id number] ## ## [address] [address] MCHC (RBC) [Mass/Vol] 35 32 - 36 X10 3 Normal 01-21-20 20 [facility] ( 00470) Comment: Performed By: #### [id number] ## ## [address] [address] MCV (RBC) [Entitic vol] 88 80 - 99 fl Normal 2019 [facility] ( 21976) Comment: Performed By: #### [id number] ## ## [address] [address] Monocytes (Bld) 0.50 0.20 - 1.00 x10EE3/UL Normal 01-21-2020 [facility] [#/Vol] [facility] (95747) Comment: Performed By: #### [id number] ## ## [facility],[address] [place] [address] MONOS % 6.5 0.0 - 10.0 % Normal 01-21-2020 [facility] (76978) Comment: Performed By: #### [id number] ## ## [facility],[address] [place] [address] Morphology Adrian (Bld) [Interp] N/A Normal 01-21-2020 [facility] ( 30232) Comment: Performed By: #### [id number] ## ## [facility],[address] [place] [address] Neutrophils (Bld) 4.30 1.50 - 7.10 x10EE3/UL Normal 01-21-2020 [facility] [#/Vol] [facility] (82805) Comment: Performed By: #### [id number] ## ## [facility],[address] [place] [address] Neutrophils/100 WBC (Bld) 56.5 46.0 - 76.0 % Normal [facility] ( 25583) Comment: Performed By: #### [id number] ## ## [facility],[address] [place] [address] Platelet mean volume 8.3 6.6 - 10.5 fl Normal 01-21-20 20 [facility] (Bld) [Entitic vol] [facility] (56751) Comment: Result Comment: AUTOMATED DI FFERENTIAL Performed By: #### [id number] ## ## [facility],[address] [place] [address] Platelets (Bld) 298 150 - 450 x10EE3/UL Normal 01-21-2020 [facility] [#/Vol] [facility] (88038) Comment: Performed By: #### [id number] ## ## [facility],[address] [place] [address] RBC (Bld) [#/Vol] 3.82 4.10 - 5.30 x 10EE6/UL Low 0 [facility] ( 29180) Comment: Performed By: #### [id number] ## ## [facility],[address] [place] [address] WBC (Bld) [#/Vol] 7.6 4.5 - 10.8 x 10EE3/UL Normal 01-21-2020 [facility] ( 13862) Comment: Performed By: #### [id number] ## ## [facility],[address] [place] [address] bmp on 2020-01-21 Creatinine [Mass/Vol] 0.96 0.50-1.20 mg/dL Normal 01-21-20 20 [facility] ([place]) (70236) Comment: Performed By: #### CBC, ADIF F, ANEU, BMP, GFR #### [address] [address] Urea nitrogen/Creatinine 18.8 10.0-22.0 ratio Normal 01-20 [facility] [Mass ratio] [facility] ([place]) (64605) Comment: Performed By: #### CBC, ADIF F, ANEU, BMP, GFR #### [address] [address] Calcium [Mass/Vol] 8.7 8.4-10.1 mg/dL Normal 01-21-2020 [facility] ([place]) (0000 0) Comment: Performed By: #### CBC, ADIF F, ANEU, BMP, GFR #### [address] [address] Chloride [Moles/Vol] 108 98-110 mEq/L Normal 0 [facility] ([place]) (0000 0) Comment: Performed By: #### CBC, ADIF F, ANEU, BMP, GFR #### [address] [address] CO2 [Moles/Vol] 26 22-32 mEq/L Normal 01-21-2020 [facility] ([place]) (28784) Comment: Performed By: #### CBC, ADIF F, ANEU, BMP, GFR #### [place] [address] Electrolyte Balance 4.0 4.0-15.0 mEq/L Normal 01-21-2020 [facility] ([place]) (0000 0) Comment: Performed By: #### CBC, ADIF F, ANEU, BMP, GFR #### [place] [id number] Glucose [Mass/Vol] 85 70-110 mg/dL Normal 01-21-2020 [facility] ([place]) (03493) Comment: Performed By: #### CBC, ADIF F, ANEU, BMP, GFR #### [place] [address] Potassium [Moles/Vol] 4.1 3.5-5.0 mEq/L Normal 01-21-20 [facility]) (0000 0) Comment: Performed By: #### CBC, ADIF F, ANEU, BMP, GFR #### [place] [address] Sodium [Moles/Vol] 138 136-145 mEq/L Normal 01-21-2020 [facility] ([place]) (04010) Comment: Performed By: #### CBC, ADIF F, ANEU, BMP, GFR #### [place] [address] Urea nitrogen [Mass/Vol] 18.0 8.0-22.0 mg/dL Normal 01-20 [facility] ([place]) (68420) Comment: Performed By: #### CBC, ADIF F, ANEU, BMP, GFR #### [address] [address] .neuabs on Neutrophils (Bld) 3.50 2.25-8.10 10 3/mcL Normal 01-21-2020 [facility] [#/Vol] [facility] ([place]) (90589) Comment: Performed By: #### CBC, ADIF F, ANEU, BMP, GFR #### [address] [address] .gfr on 2020-01-21 GFR Non- >60 Normal 01-20 [facility] ([place]) (47691) Comment: Result Comment: GFR Population mean for Afri can Nigerian, Non- Americans Ages 20-29 = 116 mL/min/1.73 [...] CBC, ADIF F, ANEU, BMP, GFR #### [address] [address] GFR >60 Normal 0 [facility] ([place]) (81700) Comment: Result Comment: GFR Population mean for Afri can Nigerian, Non- Americans Ages 20-29 = 116 mL/min/1.73 [...] CBC, ADIF F, ANEU, BMP, GFR #### [address] [address] .auto diff on 01-20 Ammonia (P) [Mass/Vol] 0.40 0.09-1.40 10 3/mcL Normal 020 [facility] ([place]) (46446) Comment: Performed By: #### CBC, ADIF F, ANEU, BMP, GFR #### [address] [address] Basophils (Bld) 0.00 0.00-0.27 10 3/mcL Normal 01-21-2020 [facility] [#/Vol] [facility] ([place]) (12267) Comment: Performed By: #### CBC, ADIF F, ANEU, BMP, GFR #### [address] [address] Basophils/100 WBC (Bld) 0.5 0.0-2.5 % Normal 2019 [facility] ([place]) (0000 0) Comment: Performed By: #### CBC, ADIF F, ANEU, BMP, GFR #### [address] [address] Eosinophils (Bld) 0.30 0.00-0.65 10 3/mcL Normal 01-21-2020 [facility] [#/Vol] [facility] ([place]) (13216) Comment: Performed By: #### CBC, ADIF F, ANEU, BMP, GFR #### [address] [address] Eosinophils/100 WBC (Bld) 5.4 0.0-6.0 % Normal [facility] ([place]) (0000 0) Comment: Performed By: #### CBC, ADIF F, ANEU, BMP, GFR #### [address] [address] Lymphocytes (Bld) 2.00 0.90-4.32 10 3/mcL Normal 01-21-2020 [facility] [#/Vol] [facility] ([place]) (48965) Comment: Performed By: #### CBC, ADIF F, ANEU, BMP, GFR #### [address] [address] Lymphocytes/100 WBC (Bld) 32.4 20.0-40.0 % Normal 05-0 [facility] ([place]) (49543) Comment: Performed By: #### CBC, ADIF F, ANEU, BMP, GFR #### [address] [address] Monocytes/100 WBC (Bld) 6.1 2.0-13.0 % Normal 2019 [facility] ([place]) (0000 0) Comment: Performed By: #### CBC, ADIF F, ANEU, BMP, GFR #### [facility] [address] [place] [address] Neutrophils/100 WBC (Bld) 55.6 50.0-75.0 % Normal 050 [facility] ([place]) (46600) Comment: Performed By: #### CBC, ADIF F, ANEU, BMP, GFR #### [facility] [address] [place] [address] cnpn on 2020-01-20 [facility] Normal 01-20-2020 [facility] SALLY MCGREGOR ([id number]) 1980 [place] Date Time Provider Department (13760) 01/20/20 MARCELINO MEJIA [facility] During your visit today, we recorded the following informati on about you: Christopher Carcamo RN 01/20/2020 11:54 AM Signed Patient asking if Chaz Stroud, would sent AB Rx to [facility], for her bad tooth? Her dentist in [place] is not open. Has an appt with a dentist in [place] on . Has a wound on tongue [...] (METRONIDAZOLE HCL) 03/11/2010 12 - Shortness of Meadow th IBUPROFEN 06/18/2016 8 - GI Upset [...] 01/20/20 progress on 2020-01 PROGRESS HNO ID: [id number] Normal 01-16-2020 [facility] Author: Isabel Mata ([id number]) Service: ? Author Type: Physician Certified Physician'S Assistant Type: Progress Notes Filed: 01/16/2020 1:43 PM [...] She c/o of daily. Attempted to call [facility] who had 1 visit with [...] testing. Recommend that she discuss with her jukebox operator. In mean time will order stress [...] on 2020-01-16 MORENA Telephone (FAMPWS) Normal 01-16-2020 [facility] SALLY MCGREGOR ([id number]) 1980 [facility] Time Provider Department (35358) 01/16/20 ISABEL ARIAS) RAMA During your visit [...] ibuprofen for pain. Follow-up with her [facility] care physician within the next 3 [...] Chest pain This note was generated with [employer] dictation software. It m ay contain incorrect [...] (METRONIDAZOLE HCL) 03/11/2010 12 - Shortness of [place]ow th IBUPROFEN 06/18/2016 8 - GI Upset [...] Encounter Status:Closed by ISABEL WARE on 01/16/20 [facility] Normal 01-16-2020 [facility] SALLY MCGREGOR ([id number]) 1980 [facility] Time Provider Department (85086) 01/16/20 ISABEL ARIAS) RAMA During your visit [...] (METRONIDAZOLE HCL) 03/11/2010 12 - Shortness of [place]ow th IBUPROFEN 06/18/2016 8 - GI Upset [...] on 2020-01-11 CNPN Telephone (FAMPWS) Normal 01-11-2020 [facility] SALLY MCGREGOR ([id number]) 1980 [place] Date Time Provider Department (97234) 01/11/20 MARCELINO MEJIA During your visit today, [...] (METRONIDAZOLE HCL) 03/11/2010 12 - Shortness of Meadow th IBUPROFEN 06/18/2016 8 - GI Upset PENICILLINS 12/07/2009 2 - Rash PREDNISONE 06/18/2016 14 - Other: See Comments Comments: makes agitated and mean Date Reviewed: 01/02/2020 Reviewed by: Ashley Lehman Ma - Fully Assessed Reason for Visit: Patient Question [6239] Reason For Visit History Recorded Prescriptions as [...] on 2020-01-09 CNPN Telephone (FAMPWS) Normal 01-09-2020 [facility] SALLY MCGREGOR ([id number]) 1980 [facility] Date Time Provider Department (51526) 01/09/20 ISABEL ARIAS) [facility] During your visit today, we [...] when taken with s eroquel 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 See if she is willing to [...] by ISABEL WARE on 01/09/20 CNPN Telephone ([facility]) Normal 01-09-2020 [facility] SALLY MCGREGOR ([id number]) 1980 [facility] Date Time Provider Department ([id number]) 01/09/20 MARCELINO MEJIA During your visit today, [...] she called because she's not really thinking [facility]. Marcelino Mejia MD 01/09/2020 1:31 PM [...] flexeril. Monica t says she cannot take [place] because she is on ok Seroquel and [...] dentist and she said no dentist in [facility] can see her because of her insurance . She tried [place] because they accepted her insurance but they [...] seen by ER or UC, then at [facility] they can see/check for signs of [...] she has called every dentist office in [place] and now [place] and no one takes her insurance. She said she called her insurance and they told her the only one was the one in [place]. I told her if her infection is that bad she needs to go back to ER for further evaluation. Patient then just keep saying I have no way of getting there; no family can take her; she has no money to pay to get there. Patient ended call. I did call Dr. Evans's office oral surgeon [phone] and they are open from 8-3 after day to see patient's and [facility]. They were currently closed but wanting to find out if they accept her insurance. ISABEL ARIAS PA-C 01/10/2020 7:18 AM Signed Noted. Allergies As of Date: 01/09/2020 Noted Allergy Reaction ASA (SALICYLATES) 01/27/2011 14 - Other: See Comments Comments: ulcers CONTRAST DYE (IODINE) 05/17/2008 12 - Shortness of Breath FLAGYL (METRONIDAZOLE HCL) 03/11/2010 12 - Shortness of Meadow th IBUPROFEN 06/18/2016 8 - GI Upset [...] * * *Final Report* * * Normal [facility] AP/LAT DATE OF EXAM: Jan 06 2020 12:58PM [place] ([id number]) WOX 5262 - XR THORACIC 2V AP/LAT / PROCEDURE REASON: Fall, initial encounter * * * * Physician Interpretation * * * * EXAM TITLE: XR THORACIC 2V AP/LAT DATE: 01/06/2020 COMPARISON: None. CLINICAL INDICATION/HISTORY: Back pain status post fall in [facility]. TECHNIQUE: AP and lateral views of the thoracic spine are pr esented. FINDINGS: No fractures or subluxations are noted. The disc spaces are well preserved. There is no paraspinal mass or delon destructive process. IMPRESSION: Negative thoracic spine. 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: [employer] Transcribe Date/Time: Jan 06 2020 1:02P Dictated by : NIDA VILLALOBOS MD This examination was interpreted and the report reviewed and electronically signed by: NIDA VILLALOBOS MD on Jan 06 2020 1:07PM EST [id number] xr cervical 3v ap/lat/odon on 2020-01-06 XR CERVICAL 3V * * *Final Report* * * Normal [facility] AP/LAT/ODON DATE OF EXAM: Jan 06 2020 12:58PM [place] WOX 5309 - XR CERVICAL 3V AP/LAT/ODON / 3 (71798) PROCEDURE REASON: Fall, initial encounter * * [...] tissues are normal. IMPRESSION: Negative cervical spine. 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 Author Type: Sap Bobj Developer Type: Progress Notes Filed: 01/06/2020 12:58 PM [...] 12:43 PM cnpn on 2020-01-06 [facility] Normal 01-06-2020 [place] [facility] SALLY MCGREGOR ([id number]) 1980 [facility] Date Time Provider Department (12135) 01/06/20 MARCELINO MEJIA During your visit today, we recorded the following informati on about you: Deepa Salvador, AIRFRAME AND POWERPLANT TECHNICIAN, AIRFRAME AND POWERPLANT TECHNICIAN 01/06/2020 11:41 AM Signed Pt calls states fell a day ago and went to [facility] they gave h er 10 vicodin, 20 [...] encounter [W19.XXXA] Order(s):XR THORACIC LIMITED 2V AP/LAT [1352768] Order #: [id number] FUTURE XR CERV INJURY 3V AP/LAT/ODON [9323027] Order #: [id number] FUTURE Prescriptions as of 01/06/2020 Sig: SERTRALINE [...] Status:Closed by BRANDEN SANDERS MA on 01/06/20 [facility] Normal 01-06-2020 [place] [facility] SALLY MCGREGOR ([id number]) 1980 [facility] Date Time Provider Department ([id number]) 01/06/20 MARCELINO MEJIA [facility] During your visit today, we [...] (METRONIDAZOLE HCL) 03/11/2010 12 - Shortness of [place] th IBUPROFEN 06/18/2016 8 - GI Upset [...] 01/06/20 progress on 2019-12 PROGRESS HNO ID: [id number] Normal 01-05-2020 [facility] Author: Isabel Romero) Hugo Mata ([id number]) Service: ? Author Type: Physician Certified Physician'S Assistant Type: Progress Notes Filed: 01/05/2020 8:07 AM [...] to cancel due to no r kostas. [facility] has appointment rescheduled on january 19. States [...] minutes progress on 2019-12 PROGRESS HNO ID: [id number] Normal 01-02-2020 [facility] Author: Marie Mary) [facility] ([id number]) Service: ? Author Type: Nurse Practitioner Type: [...] Benign liver cyst 05/24/[address] [facility] 11/2009 and 04/2010 showe 4 mm increase in size . No pain. No elevated LFTs on 03/11/2010. - Calculus of kidney 05/17/[address] Nicolas: Hospitalized age 20, and again later -- no procedures so far ([facility], [facility], [address] [facility]) - Dysmenorrhea - Impaired fasting glucose 05/17/2008 [...] Approx. 3 cigarettes daily-1 pack every w [place] Substance Use Topics - Alcohol use: Yes [...] 2020-01-02 CNOV Office Visit ([facility]) Normal 01-02-20 [place] SALLY Martinez ([id number]) 1980 F [place] Date Time Provider Department (04757) 01/02/20 2:45 PM MARIE SANTAMARIA (JAKI) [facility] [...] Benign liver cyst 05/24/[address] [facility] 11/2009 and 04/2010 showe 4 mm increase in size . No pain. No elevated LFTs on 03/11/2010. - Calculus of kidney 05/17/[address] Nicolas: Hospitalized age 20, a nd again later -- no procedures so far ([facility], [facility], [address] [facility]) - Dysmenorrhea - Impaired fasting glucose 05/17/2008 [...] Approx. 3 cigarettes daily-1 pack every w [place] Substance Use Topics - Alcohol use: Yes [...] MG CAPSULE Agrees to plan Marie Santamaria APRN.STRIP CUTTING MACHINE OPERATOR Referring Provider: SELF [200] Allergies As of Date: 01/02/2020 Noted Allergy Reaction ASA (SALICYLATES) 01/27/2011 14 - Other: See Comments Comments: ulcers CONTRAST DYE (IODINE) 05/17/2008 12 - Shortness of Breath FLAGYL (METRONIDAZOLE HCL) 03/11/2010 12 - Shortness of [place]ow th IBUPROFEN 06/18/2016 8 - GI Upset [...] SANTAMARIA CNP on 01/02/20 cnpn on 2019-12-23 [facility]) Normal 12-23-2019 [place] [facility] SALLY MCGREGOR ([id number]) 1980 [facility] Date Time Provider Department (70983) 12/23/19 [facility] ARIAS) [facility] During your visit today, we recorded [...] not helping cough. Please advise and call [phone]. WENDI ARIAS PA-C 12/23/2019 1:02 PM Signed [...] * *Final Report* * * Normal 12-21 [facility] FRONTAL/LAT DATE OF EXAM: Dec 22 2019 9:28AM [place] WOX 5291 - XR CHEST 2V FRONTAL/LAT / (06003) PROCEDURE REASON: multiple diagnoses * * * [...] clips noted. IMPRESSION: No acute radiographic abnormality. 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 Author Type: Sap Bobj Developer Type: Progress Notes Filed: 12/22/2019 9:28 AM [...] 22, 2019 9:18 AM cnpn on 2019-12-22 [facility] ([facility]) Normal 12-22-2019 [place] [facility] SALLY MCGREGOR ([id number]) 1980 [facility] Date Time Provider Department (09143) 12/22/19 ISABEL ARIAS) RAMA During your visit today, we recorded the following informati on about you: ISABEL ARIAS PA-C 12/22/2019 9:56 AM Signed Let patient know that xray is negative. Recommend cont inuing as we discussed yesterday. Isabel Arias PA-C Ashley Mcfarland Patient Safety Officer 12/22/2019 10:42 AM Signed Patient notified and verbalized understanding Ashley Mcfarland Patient Safety Officer Allergies As of Date: 12/22/2019 Noted Allergy Reaction ASA (SALICYLATES) 01/27/2011 14 - Other: See Comments Comments: ulcers CONTRAST DYE (IODINE) 05/17/2008 12 - Shortness of Breath FLAGYL (METRONIDAZOLE HCL) 03/11/2010 12 - Shortness of [place]ow th IBUPROFEN 06/18/2016 8 - GI Upset [...] 12/22/19 progress on 2019-12 PROGRESS HNO ID: [id number] Normal 12-21-2019 [facility] Author: Isabel Romero) Hugo Mtaa ([id number]) Service: ? Author Type: Physician Certified Physician'S Assistant Type: Progress Notes Filed: 12/21/2019 12:48 PM Note Text: DISTANCE HEALTH VISIT This Team Access Model visit is a phone encounter. It requir ed patient-provider interaction for the medical decision making as documented below. No video was used for evaluation of this patient. Patient consents to visit. Patient location: [place] Sally Mcgregor is a 39 year old [...] SYSTEMS: As noted in HPI PHYSICAL EXAMINATION: [facility] 08/10/2006 Deferred physical exam as visit was [...] on 2019-12-15 CNPN Telephone (FAMPWS) Normal 12-15-2019 [place] [facility] SALLY MCGREGOR ([id number]) 1980 [facility] Date Time Provider Department (34254) 12/15/19 ISABEL ARIAS (MAYA) RAMA During your [...] and still makes her nauseated. Patient uses [facility] for her pharmacy. Please advise ISABEL ARIAS [...] on 2019-12-14 CNPN Telephone (INT[facility]) Normal 12-14-2019 [place] [facility] SALLY MCGREGOR ([id number]) 1980 [place] Date Time Provider Department (03800) 12/14/19 ISABEL ARIAS) [facility] During your visit today, we recorded the following informati on about you: Gale Fuentes LPN 12/14/2019 10:15 AM Signed Patient took 1 dose of Robitussin AC, di d help suppress cough but developed an itchy/rash. Asking if something else can be called in to pha acy. Patient uses [facility]. Please notify Patient. Gale ARIAS PA-C 12/14/2019 [...] on 12/14/19 CNPN Telephone (F[facility]WS) Normal 12-14-2019 [place] [facility] SALLY MCGREGOR ([id number]) 1980 [facility] Date Time Provider Department (12053) 12/14/19 ISABEL ARIAS) RAMA During your visit [...] 12/14/19 progress on 2019-11 PROGRESS HNO ID: [id number] Normal 12-13-2019 [facility] Author: Isabel Romero) Hugo Mata ([id number]) Service: ? Author Type: Physician Certified Physician'S Assistant Type: Progress Notes Filed: 12/13/2019 10:36 AM [...] Benign liver cyst 05/24/[address] [facility] 11/2009 and 04/2010 showe 4 mm increase in size . No pain. No elevated LFTs on 03/11/2010. - Calculus of kidney 05/17/[address] Nicolas: Hospitalized age 20, and again later -- no procedures so far ([facility], [facility], [address] [facility]) - Dysmenorrhea - Impaired fasting glucose 05/17/2008 [...] Approx. 3 cigarettes daily-1 pack every w [place] Substance Use Topics - Alcohol use: Yes [...] (COVID-19). emergency report on 2019-11-26 EMERGENCY RE[address] [facility] Normal 11-25 [facility]spital EMERGENCY ROOM REPORT ([id number]) NAME ACCOUNT SEX AGE ADMIT DISCHARGE PT MED. RECORD# NUMBER DATE DATE TYPE SAM, [id number] F 39 11/24/19 11/25/19 3 SALLY [id number] ROOM: ER DATE OF : 1980 DICTATING [...] for [facility] of [facility] const[facility]. She verbalized understanding of the informa tion given and agreed to plan. She was discharged in stable condition. Dictated By: Ana Alcantar MD 11/25/19 05:37 JOB #: [id number] Transcribed By: dotty 11/25/19 22:11 Electronically signed by: Jennifer Perez MD 11/25/19 22:39 Page 2 of 2 SALLY MCGREGOR Emergency Room Report urinalysis with microscopy on 2019-11-25 Amorphous NONE Normal 11-25-2019 [facility] (99772) Comment: Performed By: #### [id number] ## ## [facility],[address] [place] [address] 60115 Bacteria LM.HPF (Urine sed) 4+ Normal [facility] [#/Area] [facility] ( 41611) Comment: Performed By: #### [id number] ## ## [facility],[address] [place] [address] 04004 Bilirubin [Mass/Vol] NEG NORMAL: NEGATIVE mg/dL Normal [facility] (19807) Comment: Performed By: #### [id number] ## ## [facility],[address] [place] [address] 44098 Blood 10 NORMAL: NEGATIVE Abnormal 11-25-2019 [facility] (84104) Comment: Performed By: #### [id number] ## ## [facility],[address] [place], [place] [id number] Casts LM.LPF (Urine sed) NONE Normal 11-24 [facility] [#/Area] [facility] ( 91309) Comment: Performed By: #### [id number] ## ## [facility],[address] [place] [address] 23393 Clarity (U) sl.cloudy NORMAL: CLEAR Normal 11-25-2019 [facility] ( 50098) Comment: Performed By: #### [id number] ## ## [facility],[address] [place] [address] 72036 Color (U) p.yel NORMAL: YELLOW Normal 11-25-2019 [facility] (03651) Comment: Performed By: #### [id number] ## ## [facility],[address] [place] [address] 75514 Crystals LM Nom (Urine sed) NONE Normal [facility] ( 05976) Comment: Performed By: #### [id number] ## ## [facility],[address] [place] [address] 56322 Epi Cells MANY Normal 11-25-2019 [facility] (04526) Comment: Performed By: #### [id number] ## ## [facility] [facility] 28340 Glucose [Mass/Vol] NORM NORMAL: NORMAL Normal 2019 [facility] ( 31771) Comment: Performed By: #### [id number] ## ## [facility],[address] [place] [address] 05928 Ketone NEG NORMAL: NEGATIVE Normal 11-25-2019 [facility] (42189) Comment: Performed By: #### [id number] ## ## [facility],[address] [place] [address] 51334 Mucous NONE Normal 11-25-2019 [facility] (37419) Comment: Performed By: #### [id number] ## ## [facility],[address] [place] [address] 53391 Nitrite Ql (U) NEG NORMAL: NEGATIVE Normal 11-25-19 20 [facility] ( 11725) Comment: Performed By: #### [id number] ## ## [facility],[address] [place] [address] 96358 pH (Bld) 5 NORMAL: 5.0-8.0 Normal 11-25-2019 [facility] (48712) Comment: Performed By: #### [id number] ## ## [facility],[address] [place] [address] 16872 Protein (U) NEG NORMAL: NEGATIVE mg/dL Normal 11-25-2019 [facility] [Mass/Vol] [facility] (13987) Comment: Performed By: #### [id number] ## ## [facility],[address] [facility] [place] [address] Rbc 0-5 0-3 / hpf Normal 11-25-2019 [facility] (08662) Comment: Performed By: #### [id number] ## ## [facility],[address] [place], [place] [id number] Sp [place] 1.010 NORMAL: 1.010-1.030 Normal 0 [facility] ( 81273) Comment: Performed By: #### [id number] ## ## [facility],[address] [place] [address] Specimen type Nom (Spec) UNSPECIFIED Normal [facility] ( 72935) Comment: Performed By: #### [id number] ## ## [facility],[address] [place], [place] [address] URINALYSIS WITH MICROSCOPY Normal [facility] (48528) Comment: Result Comment: URINALYSIS Performed By: #### [id number] ## ## [facility],[address] [place] [address] Urobilinog NORM NORMAL: NORMAL Normal 11-25-2019 [facility] (09486) Comment: Performed By: #### [id number] ## ## [facility],[address] [place], [place] [id number] Wbc 1-5 0-5 / hpf Normal 11-25-2019 [facility] (02896) Comment: Performed By: #### [id number] ## ## [facility],[address] [place], [place] [id number] WBC (Bld) [#/Vol] 25 NORMAL: NEGATIVE Abnormal 11-24 [facility] ( 28185) Comment: Result Comment: URINE MICROS COPIC Performed By: #### [id number] ## ## [facility],[address] [place] [address] 43083 Yeast LM Ql (Urine sed) NONE Normal 2019 [facility] (10216) Comment: Performed By: #### [id number] ## ## [facility],[address] [place] [address] 97907 lipase on 2019-11-13 3 Lipase [Catalytic 34.0 18.0 - 51.0 U/L Normal 11-25-2019 [facility] activity/Vol] [facility] (48774) Comment: Performed By: #### [id number] ## ## [facility],[address] [facility] 36453 lactate on Lactate [Moles/Vol] 0.9 0.5 - 2.0 mmol/L Normal 11-25-2019 [facility] ( 63960) Comment: Performed By: #### [id number] ## ## [facility],[address] [place] [address] abdomen/pelvis wo on 2019-11-25 CT ABDOMEN/PELVIS [facility] Normal 0 11-25-2019 [facility] [address] [place], [place] [id number] ([id number]) Patient: SALLY MCGREGOR Phone#: : 1980 Age: 39 Gender: F Pt. Type: ER Account: [id number] Location: [facility] Ordering: DR. ANA ALCANTAR Exam Date: 11/25/2019/0:04 Family Phys: ISABEL ARIAS Charge Code: [id number] Physician: [place] Order #: [id number] DLP Dose#: PROCEDURE: CT ABDOMEN/PELVIS WITHOUT CONTRAST COMPARISON: [facility], CT, ABDOMEN/PELVIS W/O CON, 03/22/2019, 16:41. INDICATIONS: Abdominal Pain TECHNIQUE: CT images were created without intravenous contra st. All CT scans at this [facility] y use dose modulation, iterative [...] 39 Gender: F Pt. Type: ER Account: [id number] Location: 052 Ordering: DR. ANA ALCANTAR Exam Date: 11/25/2019/0:04 Family Phys: ISABEL ARIAS Charge Code: [id number] Physician: [place] Order #: [id number] DLP Dose#: ABDOMINAL WALL: There is a [...] on 2019-11-25 CNPN Telephone (FAMPWS) Normal 11-25-2019 [facility] TOSHIASALLY TORRES ([id number]) 1980 F [place] Date Time Provider Department (56808) 11/25/19 [facility]AY ARIAS[facility] During your visit today, we recorded [...] Reported 39 years Normal 11-25-2019 [facility] (18487) Comment: Performed By: #### [id number] ## ## [facility],[address] [place] [address] 36165 Albumin [Mass/Vol] 4.5 3.4 - 4.8 g/dL Normal 11-25-2019 [facility] ( 22887) Comment: Performed By: #### [id number] ## ## [facility],[address] [place] [address] 77711 Albumin/Globulin [Mass 1.3 0.9 - 1.6 {ratio} Normal [address] [place] [address] (03732) Comment: Performed By: #### [id number] ## ## [facility],[address] [place] [address] 54099 ALK PHOS 93 38 - 126 U/L Normal 11-25-2019 [facility] (80469) Comment: Performed By: #### [id number] ## ## [facility],[address] [place] [address] 39503 ALT/SGPT 10 8 - 35 U/L Normal 11-25-2019 [facility] (14386) Comment: Performed By: #### [id number] ## ## [facility],[address] [place] [address] 63573 Anion gap [Moles/Vol] 13 10 - 20 mmol/L Normal 11-25-19 [facility] ( 02596) Comment: Performed By: #### [id number] ## ## [facility],[address] [place] [address] 21506 AST/SGOT 9 13 - 39 U/L Low 11-25-2019 [facility] (73301) Comment: Performed By: #### [id number] ## ## [facility],[address] [facility] 74161 B/C RATIO 17 0 - 30 ratio Normal 11-25-2019 [facility] (69520) Comment: Performed By: #### [id number] ## ## [facility],[address] [facility] 85207 Bilirubin [Mass/Vol] 0.4 0.0 - 1.5 mg/dl Normal 0 [facility] ( 93419) Comment: Performed By: #### [id number] ## ## [facility],[address] [place] [address] 61790 Calcium [Mass/Vol] 9.9 8.6 - 10.2 mg/dl Normal 11-25-2019 [facility] ( 15017) Comment: Performed By: #### [id number] ## ## [facility],[address] [facility] 77060 Chloride [Moles/Vol] 103 98 - 107 mmol/L Normal 0 [facility] ( 44690) Comment: Performed By: #### [id number] ## ## [facility],[address] [facility] [place] [address] CO2 [Moles/Vol] 24.9 21.0 - 31.0 mmol/L Normal 11-25-2019 [facility] ( 44190) Comment: Performed By: #### [id number] ## ## [facility],[address] [place] [address] 89797 Creatinine [Mass/Vol] 1.0 0.6 - 1.2 mg/dl Normal 11-25-19 20 [facility] ( 45323) Comment: Performed By: #### 828150 ## ## [facility],[address] [place] [address] 21581 GFR/1.73 sq M >60 60 - 999 mL/min/{1.73_m2} Normal 0 [facility] predicted among [facility] non-blacks MDRD (000 00) (S/P/Bld) [Vol rate/Area] Comment: Performed By: #### [id number] ## ## [facility],[address] [place] [address] 08616 Result Comment: ACCORDING TO THE NATIONAL KIDNEY DISEASE EDUCATION PROGRAM(NKDE), A NORMAL eGFR IS A VALUE GREATER THAN OR E QUAL TO 60 ML/MIN/1.73 SQ METERS. CHRONIC KIDNEY DISEASE: <60m L/MIN/1.73 SQ METERS KIDNEY FAILURE: <15mL/MIN/1. 73 SQ METERS THIS TEST SHOULD ONLY BE USE D FOR PATIENTS 18 YEARS OF AGE AND OLDER. GFR/1.73 sq M predicted among Normal 11-25-2019 [facility] non-blacks MDRD (S/P/Bld) [Vol Hospital (06097) rate/Area] Comment: Result Comment: COMPREHENSIV E METABOLIC PANEL Performed By: #### [id number] ## ## [facility],[address] [place] [address] 08827 Globulin (S) [Mass/Vol] 3.5 1.5 - 3.8 G/DL Normal 2019 [facility] ( 23839) Comment: Performed By: #### [id number] ## ## [facility],[address] [place] [address] 97481 Glucose [Mass/Vol] 123 74 - 106 mg/dl High 11-25-2019 [facility] (24287) Comment: Performed By: #### 981401 ## ## [facility],[address] [place] [address] 20658 Potassium [Moles/Vol] 3.6 3.5 - 5.1 mmol/L Normal 11-25-19 20 [facility] ( 08774) Comment: Performed By: #### [id number] ## ## [facility],[address] [place] [address] 21644 Protein [Mass/Vol] 8.0 6.4 - 8.3 g/dl Normal 11-25-2019 [facility] ( 13195) Comment: Performed By: #### 616492 ## ## [facility],[address] [place] [address] 25644 Sodium [Moles/Vol] 137 136 - 145 mmol/l Normal 11-25-2019 [facility] ( 89264) Comment: Performed By: #### 660034 ## ## [facility],[address] [place] [address] 59820 Urea nitrogen [Mass/Vol] 17 6 - 20 mg/dl Normal 11-24 [facility] ( 46533) Comment: Performed By: #### [id number] ## ## [facility],[address] [place] [address] 01826 chest 2 views on 01-12-[address] [facility] Normal 11-25-19 [facility] [address] [place], [place] [id number] (02442) Patient: SALLY MCGREGOR Phone#: : 1980 Age: 39 Gender: F Pt. Type: ER Account: [id number] Location: [facility] Ordering: DR. ANA ALCANTAR Exam Date: 11/25/2019/0:08 Family Phys: ISABEL ARIAS Charge Code: [id number] Physician: [place] Order #: [id number] DLP Dose#: PROCEDURE: X-RAY CHEST 2 VIEWS COMPARISON: [facility], XR, CHEST PA/LAT, 05/12/2017, 16:14. INDICATIONS: [...] on 11-24 CELL COUNT 100 Normal 11-25-2019 [facility] (88956) Comment: Performed By: #### [id number] ## ## [facility],[address] [place] [address] 00651 EO 1.0 0.0 - 4.0 % Normal 11-25-2019 [facility] (31548) Comment: Performed By: #### 294082 ## ## [facility],[address] [place] [address] 03884 SEGS 59 50 - 70 % Normal 11-25-2019 [facility] (35786) Comment: Performed By: #### [id number] ## ## [facility],[address] [place] [address] 62653 CBC + DIFF Normal 11-25-2019 [facility] (75931) Comment: Result Comment: CBC-COMPLETE BLOOD COUNT Performed By: #### [id number] ## ## [facility],[address] [place] [address] 80875 Erythrocyte distribution 13.4 12.0 - 15.6 % Normal [facility] (RBC) [Ratio] [facility] (72353) Comment: Performed By: #### 476696 ## ## [facility],[address] [place] [address] 58328 Hematocrit (Bld) [Volume 32.5 34.0 - 46.0 % Low [facility]] [facility] ( 68661) Comment: Performed By: #### [id number] ## ## [facility],[address] [place] [address] 36201 Hemoglobin (Bld) 11.4 12.0 - 16.0 g/dl Low 11-25-2019 [facility] [Mass/Vol] Hospital (32757) Comment: Performed By: #### [id number] ## ## [facility],[address] [place] [address] 16223 Lymphocytes/100 WBC (Bld) 40 20 - 40 % Normal 11-12 [facility] ( 82361) Comment: Performed By: #### [id number] ## ## [facility],[address] [place] [address] 90165 MANUAL DIFF SEE BELOW Normal 11-25-2019 [facility] (18148) Comment: Performed By: #### [id number] ## ## [facility],[address] [place] [address] 43241 MCH (RBC) [Entitic mass] 31 27 - 33 pg Normal 11-24 [facility] ( 88939) Comment: Performed By: #### 781405 ## ## [facility],[address] [place] [address] 74554 MCHC (RBC) [Mass/Vol] 35 32 - 36 X10 3 Normal 11-25-19 20 [facility] ( 16896) Comment: Performed By: #### [id number] ## ## [facility],[address] [place] [address] 55532 MCV (RBC) [Entitic vol] 88 80 - 99 fl Normal 2019 [facility] ( 61178) Comment: Performed By: #### 765458 ## ## [facility],[address] [place] [address] 04565 Morphology Adrian (Bld) REVIEWED Normal 0 [facility] [Interp] [facility] ( 34801) Comment: Performed By: #### [id number] ## ## [facility],[address] [place] [address] 94934 Platelet mean volume 9.1 6.6 - 10.5 fl Normal 11-25-19 20 [facility] (Bld) [Entitic vol] [facility] (57337) Comment: Result Comment: AUTOMATED DI FFERENTIAL Performed By: #### [id number] ## ## [facility],[address] [place] [address] 38334 Platelets (Bld) 268 150 - 450 x10EE3/UL Normal 11-25-2019 [facility] [#/Vol] [facility] (28567) Comment: Performed By: #### [id number] ## ## [facility],[address] [place] [address] 96632 RBC (Bld) [#/Vol] 3.69 4.10 - 5.30 x 10EE6/UL Low 0 [facility] ( 62959) Comment: Performed By: #### [id number] ## ## [facility],[address] [place] [address] 02769 WBC (Bld) [#/Vol] 11.4 4.5 - 10.8 x 10EE3/UL High 11-25-2019 [facility] ( 01054) Comment: Performed By: #### [id number] ## ## [facility],[address] [place] [address] 33911 tsh on 2019-11-24 TSH Qn 3.920 0.270-4.200 uU/mL Normal 11-24-[address] [facility] (09954) Comment: Result Comment: If the patie nt [...] et al. 2017 Guide lines of the [place] Thyroid Association for the Diagnosis and Management of Thyroid Disease during and the . Thyroid, 2017:27:3:315-389. Performed By: #### TSH, CBCD IF, CMP ####[facility] [address] [place], [place] [phone] troponin t on 11-23 Troponin T.cardiac Test sent to 0.000-0.029 Normal 2019 [facility] [Mass/Vol] [facility] (36781) [facility]. Comment: Result Comment: Account Cred ited HIDE progress on 2019-11 PROGRESS HNO ID: [id number] Normal 11-24-2019 [facility] Author: Jay) Hugo [place] ([id number]) Service: ? Author Type: Physician Certified Physician'S Assistant Type: Progress Notes Filed: 11/24/2019 9:33 AM [...] insurance and was forced to [facility] who isn't helping her. Only spoke with her twice. States she is in a lot of pain and trouble sleeping. States gabapentin used to work for her but when she lost her insurance. PAST MEDICAL HISTORY Diagnosis Date - Allergic rhinitis, cause unspecified 05/17/2008 Spring and summer - Benign liver cyst 05/24/[address] [facility] 11/2009 and 04/2010 showe 4 mm increase in size . No pain. No elevated LFTs on 03/11/2010. - Calculus of kidney 05/17/[address] Nicolas: Hospitalized age 20, and again later -- no procedures so far ([facility], [facility], [address] [facility]) - Dysmenorrhea - Impaired fasting glucose 05/17/2008 [...] Approx. 3 cigarettes daily-1 pack every w [place] Substance Use Topics - Alcohol use: Yes [...] dimer on D dimer Test sent to [place] <500 Normal 0 [facility]. (58298) Comment: Result Comment: Account Cred ited HIDE comp metabolic panel on 2019-11-24 Albumin [Mass/Vol] 4.4 3.9-4.9 g/dL Normal 11-24-2019 [facility] (39089) Comment: Performed By: #### TSH, CBCD IF, CMP ####[facility] [address] [place] [address] [phone] ALP [Catalytic activity/Vol] 105 34-123 U/L Normal 0 11-24-2019 [facility] (74884) Comment: Performed By: #### TSH, CBCD IF, CMP ####[facility] [address] [place] [address] [phone] ALT [Catalytic activity/Vol] 6 7-38 U/L Low 0 11-24-2019 [facility] (76056) Comment: Performed By: #### TSH, CBCD IF, CMP ####[facility] [place] [address] [phone] Anion gap [Moles/Vol] 12 9-18 mmol/L Normal 11-24-19 20 [facility] (63904) Comment: Performed By: #### TSH, CBCD IF, CMP ####[place] [address] [place] [address] [phone] AST [Catalytic activity/Vol] 14 13-35 U/L Normal 0 11-24-2019 [facility] (44644) Comment: Performed By: #### TSH, CBCD IF, CMP ####[place] [address] [phone] Bilirubin [Mass/Vol] 0.4 0.2-1.3 mg/dL Normal 0 [facility] (35141) Comment: Performed By: #### TSH, CBCD IF, CMP ####[place] [address] [place] [address] [phone] Calcium [Mass/Vol] 9.9 8.5-10.2 mg/dL Normal 11-24-2019 [facility] (94321) Comment: Performed By: #### TSH, CBCD IF, CMP ####[facility] [place] [address] [phone] Chloride [Moles/Vol] 101 97-105 mmol/L Normal 0 [facility] (08361) Comment: Performed By: #### TSH, CBCD IF, CMP ####[place] [id number] [place] [address] [phone] CO2 [Moles/Vol] 23 22-30 mmol/L Normal 11-24-2019 [facility] (18132) Comment: Performed By: #### TSH, CBCD IF, CMP ####[facility] [address] [place] [address] [phone] Creatinine [Mass/Vol] 0.93 0.58-0.96 mg/dL Normal 11-24-19 [facility] (46298) Comment: Performed By: #### TSH, CBCD IF, CMP ####[facility] [address] [place] [address] [address] [phone] eGFR- Amer. >60 Normal 11-24-2019 [facility] (03045) Comment: Performed By: #### TSH, CBCD IF, CMP ####[facility] [place] [address] [phone] GFR/1.73 sq M predicted >60 mL/min/{1.73_m2} Normal 11-24-2019 [facility] among non-blacks [facility] (63901) (S/P/Bld) [Vol rate/Area] Comment: Result Comment: eGFR [...] Performed By: #### TSH, CBCD IF, CMP ####[facility] [address] [place] [address] [phone] Glucose [Mass/Vol] 98 74-99 mg/dL Normal 11-24-2019 [facility] (51230) Comment: Result Comment: The [place] Diabetes Association (ADA) provides guidance for cutoff [...] for diagnosis of diabetes. Reference: Standards of [facility] Care in Diabetes 2016, [place] Diabetes Association. Diabetes Care. 2016.39(Suppl 1). Performed By: #### TSH, CBCD IF, CMP ####[facility] [place] [address] [phone] Potassium [Moles/Vol] 4.1 3.7-5.1 mmol/L Normal 11-24-19 [facility] (83093) Comment: Performed By: #### TSH, CBCD IF, CMP ####[place] [address] [phone] Protein [Mass/Vol] 7.6 6.3-8.0 g/dL Normal 11-24-2019 [facility] (02086) Comment: Performed By: #### TSH, CBCD IF, CMP ####[place] [address] [place] [address] [phone] Sodium [Moles/Vol] 136 136-144 mmol/L Normal 11-24-2019 [facility] (36442) Comment: Performed By: #### TSH, CBCD IF, CMP ####[place] [address] [phone] Urea nitrogen [Mass/Vol] 21 7-21 mg/dL Normal 11-23 [facility] (66102) Comment: Performed By: #### TSH, CBCD IF, CMP ####[place] [address] [phone] cnpn on 2019-11-24 CNPN Telephone (FAMPWS) Normal 11-24-2019 [facility] SALLY MCGREGOR ([id number]) 1980 [facility] Time Provider Department (81945) 11/24/19 MARCELINO MEJIA During your visit today, [...] is onl y under doctor for the [facility] states in the letter. Valente Bruce Ma' Allergies As of Date: 11/24/2019 Noted Allergy Reaction ASA (SALICYLATES) 01/27/2011 14 - Other: See Comments Comments: ulcers CONTRAST DYE (IODINE) 05/17/2008 12 - Shortness of Breath FLAGYL (METRONIDAZOLE HCL) 03/11/2010 12 - Shortness of [place] IBUPROFEN 06/18/2016 8 - GI Upset [...] on 11/24/19 CNPN Telephone (FAMPWS) Normal 11-24-2019 [facility] SALLY MCGREGOR ([id number]) 1980 [facility] Date Time Provider Department (16726) 11/24/19 JAY ARIAS) [facility] During your visit today, we recorded the following informati on about you: Lorenzo Vu 11/24/2019 12:40 PM Signed 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 If so please fax to [employer] fax [phone]. ISABEL ARIAS PA-C 11/24/2019 1:00 PM Signed [...] on 11/24/19 CNPN Telephone (FAMPWS) Normal 11-24-2019 [place] [facility] SALLY MCGREGOR ([id number]) 1980 [facility] Date Time Provider Department (67081) 11/24/19 MARCELINO MEJIA [facility] During your visit today, we recorded the following informati on about you: Yvette Huffman RN 11/24/2019 12:00 PM Signed Aidee from [facility] lab called, verified pt by name and [...] (METRONIDAZOLE HCL) 03/11/2010 12 - Shortness of Meadow th IBUPROFEN 06/18/2016 8 - GI Upset [...] 2019-11-24 CNOV Office Visit (FAMPWS) Normal 11-24-19 [facility] SALLY MCGREGOR ([id number]) 1980 [facility] Date Time Provider Department (12991) 11/24/19 9:20 AM JAY ARIAS) FAMPWS During [...] Benign liver cyst 05/24/[address] [facility] 11/2009 and 04/2010 showe 4 mm increase in size . No pain. No elevated LFTs on 03/11/2010. - Calculus of kidney 05/17/[address] Nicolas: Hospitalized age 20, a nd again later -- no procedures so far ([facility], [facility], [address] [facility]) - Dysmenorrhea - Impaired fasting glucose 05/17/2008 [...] Approx. 3 cigarettes daily-1 pack every w [place] Substance Use Topics - Alcohol use: Yes [...] [facility] [[id number]] Order #: [id number]: 1 levoFLOXacin (LEVAQUIN) 500 mg tabletTake 1 [...] Abs Baso 0.06 <0.11 k/uL Normal 11-24-2019 [facility] (97358) Comment: Performed By: #### TSH, CBCD IF, CMP ####[place] [id number] [place] [address] [address] [phone] Abs Morris 0.43 <0.87 k/uL Normal 11-24-2019 [facility] (18711) Comment: Performed By: #### TSH, CBCD IF, CMP ####[place] [address] [address] [place] [address] [phone] Abs Neut 5.59 1.45-7.50 k/uL Normal 11-24-2019 [facility] (82282) Comment: Performed By: #### TSH, CBCD IF, CMP ####[place] [address] [address] [place] [address] [phone] Absolute nRBC <0.01 <0.01 Normal 11-24-2019 [facility] (13514) Comment: Performed By: #### TSH, CBCD IF, CMP ####[place] [address] [address] [place] [address] [phone] Basophils/100 WBC (Bld) 0.7 % Normal 2019 [facility] (30398) Comment: Performed By: #### TSH, CBCD IF, CMP ####[place] [address] [address] [place] [address] [phone] DTYPE Auto Diff Normal 11-24-2019 [facility] (33535) Comment: Performed By: #### TSH, CBCD IF, CMP ####[place] [id number] [address] [phone] Eosinophils (Bld) [#/Vol] 0.34 <0.46 k/uL Normal 11-12 [facility] (11205) Comment: Performed By: #### TSH, CBCD IF, CMP ####[place] [id number] [address] [phone] Eosinophils/100 WBC (Bld) 3.7 % Normal 11-12 [facility] (31259) Comment: Performed By: #### TSH, CBCD IF, CMP ####[facility] [address] Erythrocyte distribution 13.1 11.5-15.0 % Normal 11-23 [facility] width (RBC) [Ratio] [place] (33693) Comment: Performed By: #### TSH, CBCD IF, CMP ####[facility] [address] [place] [address] [phone] Hematocrit (Bld) [Volume 38.1 36.0-46.0 % Normal 11-23 [facility] fraction] [place] (03686) Comment: Performed By: #### TSH, CBCD IF, CMP ####[facility] [place] [address] [phone] Hemoglobin (Bld) 11.7 11.5-15.5 g/dL Normal 11-24-2019 [facility] [Mass/Vol] [place] (32215) Comment: Performed By: #### TSH, CBCD IF, CMP ####[facility] [place] [address] [phone] Lymphocytes (Bld) [#/Vol] 2.69 1.00-4.00 k/uL Normal 11-12 [facility] (47663) Comment: Performed By: #### TSH, CBCD IF, CMP ####[facility] [address] [place] [address] [phone] Lymphocytes/100 WBC (Bld) 29.5 % Normal 11-12 [facility] (11902) Comment: Performed By: #### TSH, CBCD IF, CMP ####[facility] [address] [place] [address] [phone] MCH (RBC) [Entitic mass] 29.3 26.0-34.0 pG Normal 11-23 [facility] (08981) Comment: Performed By: #### TSH, CBCD IF, CMP ####[facility] [place] [address] [phone] MCHC (RBC) [Mass/Vol] 30.7 30.5-36.0 g/dL Normal 11-24-19 [facility] (15150) Comment: Performed By: #### TSH, CBCD IF, CMP ####[place] [id number] [address] [phone] MCV (RBC) [Entitic vol] 95.3 80.0-100.0 fL Normal 11-23 [facility] (78714) Comment: Performed By: #### TSH, CBCD IF, CMP ####[place] [address] [address] [place] [address] [phone] Monocytes/100 WBC (Bld) 4.7 % Normal 2019 [facility] (85715) Comment: Performed By: #### TSH, CBCD IF, CMP ####[place] [address] [address] [place] [address] [phone] Neutrophils/100 WBC (Bld) 61.4 % Normal 11-12 [facility] (23989) Comment: Result Comment: Differential confirmed by visual scan of peripheral blood smear slide. Performed By: #### TSH, CBCD IF, CMP ####[place] [address] [address] [place] [address] [phone] NRBCs 0.0 0 /100 WBC Normal 11-24-2019 [facility] (80399) Comment: Performed By: #### TSH, CBCD IF, CMP ####[place] [address] [address] [phone] Platelet mean volume 11.4 9.0-12.7 fL Normal 0 [facility] (Bld) [Entitic vol] [place] (72045) Comment: Performed By: #### TSH, CBCD IF, CMP ####[facility] [place] [address] [phone] Platelets (Bld) [#/Vol] 248 150-400 k/uL Normal 2019 [facility] (87016) Comment: Performed By: #### TSH, CBCD IF, CMP ####[facility] [place] [address] [phone] RBC (Bld) [#/Vol] 4.00 3.90-5.20 m/uL Normal 11-24-2019 [facility] (80272) Comment: Performed By: #### TSH, CBCD IF, CMP ####[place] [id number] [place] [address] [phone] WBC (Bld) [#/Vol] 9.11 3.70-11.00 k/uL Normal 11-24-2019 [facility] (08874) Comment: Performed By: #### TSH, CBCD IF, CMP ####[place] [address] [place] [address] [phone] cnpn on 2019-11-21 [facility] Normal 11-21-2019 [facility] SALLY MCGREGOR ([id number]) 1980 [facility] Date Time Provider Department (40271) 11/21/19 [facility] During your visit today, we recorded [...] Status:Closed by VALENTE BRUCE MA on 11/23/[facility] [facility] Telephone (FAMPWS) Normal 11-19-2019 [facility] SALLY MCGREGOR ([id number]) 1980 [facility] Date Time Provider Department (26378) 11/19/19 [facility]C FELIX [facility] During your visit today, we recorded [...] 11/21/2019 11:15 AM Signed Pt seen in [facility] ER on 11/19/19. Janneth Zhou, RN, RN [...] (METRONIDAZOLE HCL) 03/11/2010 12 - Shortness of [place]ow th IBUPROFEN 06/18/2016 8 - GI Upset PENICILLINS 12/07/2009 2 - Rash PREDNISONE 06/18/2016 14 - Other: See Comments Comments: makes agitated and mean Date Reviewed: 11/18/2019 Reviewed by: Valente Bruce Ma - Fully Assessed Reason for Visit: Question [2306] Patient Update [5384] Reason For Visit History Recorded Prescriptions as [...] * *Final Report* * * Normal 11-17 [facility] FRONTAL/LAT DATE OF EXAM: Nov 18 2019 12:48PM [place] WOX 5291 - XR CHEST 2V FRONTAL/LAT / (53264) PROCEDURE REASON: multiple diagnoses * * * [...] tissues: Unremarkable. IMPRESSION: No acute radiographic abnormality. 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 Author Type: Sap Bobj Developer Type: Progress Notes Filed: 11/18/2019 12:49 PM [...] 18, 2019 12:40 PM PROGRESS HNO ID: [id number] Normal 11-18-2019 [facility] Author: Randi Arias [place] ([id number]) Service: ? Author Type: Physician Certified Physician'S Assistant Type: Progress Notes Filed: 11/18/2019 3:32 PM [...] Benign liver cyst 05/24/[address] [facility] 11/2009 and 04/2010 showe 4 mm increase in size . No pain. No elevated LFTs on 03/11/2010. - Calculus of kidney 05/17/[address] Nicolas: Hospitalized age 20, and again later -- no procedures so far ([facility], [facility], [address] [facility]) - Dysmenorrhea - Impaired fasting glucose 05/17/2008 [...] TOTAL ABDOM HYSTERECTOMY 08/31/06 Hysterectomy, [facility] Family History FAMILY HISTORY Problem Relation Age [...] Approx. 3 cigarettes daily-1 pack every w [place] Substance Use Topics - Alcohol use: Yes [...] NAME : SALLY MCGREGOR Normal 11-17-2 020 [facility] PID : [id number] Sina boyd ([id number]) : 1980 Gender : Female Race : [...] ms QTC Calculation(Bazett) : 453 ms P Dewitt : 51 degrees R Dewitt : -43 degrees T Dewitt : 6 degrees Test Reason : Location : 185 : [facility] Overread By : RUBEN GALVIN D.O. Edited By : RUBEN GALVIN D.O. Referred By : JAY ARIAS) Acquired by : morena MURRIETA on 2019-11-18 [facility]) Normal 11-18-2019 [place] [facility] SALLY MCGREGOR ([id number]) 1980 [facility] Time Provider Department (51499) 11/18/19 JAY ARIAS) [facility] During your visit today, we recorded the following informati on about you: Lorenzohanna Vu 11/18/2019 2:[address] [facility] / [facility] calls with results of d-dimer 1.10 ( [...] cnov on 2019-11-18 CNOV Office Visit (FAMPWS) [place] 11-18-[address] [place] [address] Debra SALLY MCGREGOR ([id number]) 1980 [facility] Time Provider Department (32018) 11/18/19 12:20 PM JAY ARIAS) [facility] During your visit today, we recorded [...] Benign liver cyst 05/24/[address] [facility] 11/2009 and 04/2010 showe 4 mm increase in size . No pain. No elevated LFTs on 03/11/2010. - Calculus of kidney 05/17/[address] Nicolas: Hospitalized age 20, a nd again later -- no procedures so far ([facility], [facility], [address] [facility]) - Dysmenorrhea - Impaired fasting glucose 05/17/2008 [...] TOTAL ABDOM HYSTERECTOMY 08/31/06 Hysterectomy, [facility] Family History FAMILY HISTORY Problem Relation Age [...] Approx. 3 cigarettes daily-1 pack every w [place] Substance Use Topics - Alcohol use: Yes [...] Order(s):CONSULT TO PAIN MGT [19991220] Order #: [id number] : 1 FUTURE CBC + DIFF [SQCBCDIF] Order #: [id number] FUTURE COMP METABOLIC PANEL [SQCMP] Order #: [id number] FUTURE D-DIMER [SQDDMER] Order #: [id number] FUTURE TSH BLD [SQTSH] Order #: [id number] FUTURE CONSULT TO CARDIOLOGY [900] Order #: [id number]: 1 FUTUR E XR CHEST 2V FRONTAL/LAT [3924619] Order #: [id number] FUTURE TROPONIN T [SQTNT] Order #: [id number] FUTURE Prescriptions as of 11/18/2019 Sig: AMITRIPTYLINE [...] 11/18/19 emergency report on 2019-11-03 EMERGENCY REPORT [facility] Normal 11-03 [facility]spital EMERGENCY ROOM REPORT (87908) NAME ACCOUNT SEX AGE ADMIT DISCHARGE PT MED. RECORD# NUMBER DATE DATE TYPE SAM [id number] F 39 10/31/19 10/31/19 3 SALLY [id number] ROOM: ER DATE OF : 1980 DICTATING [...] try contacting Dr. Kyle hernandez through the [facility]. We will dispense her 2 Percocet to go home. I did r eview her OARRS, and she will be discharged in stable condition. Page 1 of 2 SALLY MCGREGOR Emergency Room Report SALLY MCGREGOR : 1980 Dictated By: Nikhil Lord DO 10/31/19 18:03 JOB #: [id number] Transcribed By: am 11/01/19 14:42 Electronically signed by: JC Lord D.O. 11/03/19 07:04 Page 2 of 2 SALLY MCGREGOR Emergency Room Report urinalysis on 10-31 Calcium Ox 1+ NORMAL: NONE Normal 10-31-2019 [facility] (54598) Comment: Performed By: #### [id number] ## ## [facility],[address] [facility] [address] Amorphous TRACE Normal 10-31-2019 [facility] (01139) Comment: Performed By: #### [id number] ## ## [facility] [facility],[place] [address] Bacteria LM.HPF (Urine sed) TRACE Normal [facility] [#/Area] [facility] ( 49288) Comment: Performed By: #### [id number] ## ## [facility] [facility] [address] Bilirubin [Mass/Vol] NEG NORMAL: NEGATIVE mg/dL Normal [facility]ital (30712) Comment: Performed By: #### [id number] ## ## [facility] [facility] [address] Blood 25 NORMAL: NEGATIVE Abnormal 10-31-2019 [facility] (11476) Comment: Performed By: #### 928011 ## ## [facility] [facility] [address] Casts LM.LPF (Urine sed) NONE Normal 10-31 [facility] [/Area] [facility] ( 57466) Comment: Performed By: #### [id number] ## ## [facility] [facility] [address] Clarity (U) clear NORMAL: CLEAR Normal 10-31-2019 [facility] (98705) Comment: Performed By: #### [id number] ## ## [facility] [facility] [address] Color (U) yellow NORMAL: YELLOW Normal 10-31-2019 [facility] (73623) Comment: Performed By: #### [id number] ## ## [facility] [facility] [address] Crystals LM Nom (Urine sed) SEE BELOW Normal [facility] ( 29545) Comment: Performed By: #### [id number] ## ## [facility],[address] [place] [address]7086 Epi Cells MANY Normal 10-31-2019 [facility] (97875) Comment: Performed By: #### [id number] ## ## [facility],[address] [place] [address] 87246 Glucose [Mass/Vol] NORM NORMAL: NORMAL Normal 2019 [facility] ( 65587) Comment: Performed By: #### [id number] ## ## [facility],[address] [place] [address] 41966 Ketone NEG NORMAL: NEGATIVE Normal 10-31-2019 [facility] (29279) Comment: Performed By: #### [id number] ## ## [facility],[address] [place] [address] 04127 Microscopic SEE BELOW Normal 10-31-2019 [facility] (82518) Comment: Result Comment: MICROSCOPIC Performed By: #### [id number] ## ## [facility] [place] [address] 01133 Mucous NONE Normal 10-31-2019 [facility] (47901) Comment: Performed By: #### [id number] ## ## [facility] [place] [address] 98124 Nitrite Ql (U) NEG NORMAL: NEGATIVE Normal 10-31-19 20 [facility] ( 15542) Comment: Performed By: #### [id number] ## ## [facility],[address] [place] [address] 60965 pH (Bld) 5 NORMAL: 5.0-8.0 Normal 10-31-2019 [facility] (17592) Comment: Performed By: #### [id number] ## ## [facility],[address] [place] [address] 62896 Protein (U) NEG NORMAL: NEGATIVE mg/dL Normal 10-31-2019 [facility] [Mass/Vol] [facility] (99570) Comment: Performed By: #### [id number] ## ## [facility],[address] [place] [address] 89024 Rbc 0-5 0-3/hpf Normal 10-31-2019 [facility] (97157) Comment: Performed By: #### 648739 ## ## [facility],[address] [place], [place] [id number] Sp [place] 1.030 NORMAL: 1.010-1.030 Normal 0 [facility] ( 80973) Comment: Performed By: #### [id number] ## ## [facility],[address] [place], [place] [id number] Specimen type Nom (Spec) UNSPECIFIED Normal [facility] ( 78154) Comment: Performed By: #### [id number] ## ## [facility],[address] [place], [place] [id number] Urobilinog NORM NORMAL: NORMAL Normal 10-31-2019 [facility] (81153) Comment: Performed By: #### 543649 ## ## [facility],[address] [place] [address] 30280 Wbc 1-5 0-5/hpf Normal 10-31-2019 [facility] (80368) Comment: Performed By: #### 066953 ## ## [facility],[address] [place] [address] 40457 WBC (Bld) [#/Vol] 25 NORMAL: NEGATIVE Abnormal 10-31 [facility] ( 05406) Comment: Performed By: #### 488068 ## ## [facility],[address] [place] [address] 72291 Yeast LM Ql (Urine sed) NONE Normal 2019 [facility] (76655) Comment: Performed By: #### [id number] ## ## [facility],[address] [facility] [address] lipase on 2019-10-15 7 Lipase [Catalytic 40.0 18.0 - 51.0 U/L Normal 10-31-2019 [facility] activity/Vol] [facility] (55443) Comment: Performed By: #### [id number] ## ## [facility] [facility] 95857 cmp with egfr on 03-11-16 Age - Reported 39 years Normal 10-31-2019 [facility] (37191) Comment: Performed By: #### [id number] ## ## [facility],[address] [place] [address] 57029 Albumin [Mass/Vol] 4.4 3.4 - 4.8 g/dL Normal 10-31-2019 [facility] ( 53027) Comment: Performed By: #### [id number] ## ## [facility],[address] [place] [address] 17472 Albumin/Globulin [Mass 1.3 0.9 - 1.6 {ratio} Normal 020 [facility]] [facility] (02321) Comment: Performed By: #### [id number] ## ## [facility] [address] ALK PHOS 79 38 - 126 U/L Normal 10-31-2019 [facility] (40289) Comment: Performed By: #### 902907 ## ## [facility] [address]87 ALT/SGPT 12 8 - 35 U/L Normal 10-31-2019 [facility] (65904) Comment: Performed By: #### 618825 ## ## [facility] [address] Anion gap [Moles/Vol] 12 10 - 20 mmol/L Normal 10-31-19 [facility] ( 77275) Comment: Performed By: #### 518259 ## ## [facility],[address] [facility] [address] AST/SGOT 13 13 - 39 U/L Normal 10-31-2019 [facility] (36423) Comment: Performed By: #### 881476 ## ## [facility],[address] [facility],[place] [address] B/C RATIO 18 0 - 30 ratio Normal 10-31-2019 [facility] (82720) Comment: Performed By: #### [id number] ## ## [facility] [facility] [address] Bilirubin [Mass/Vol] 0.4 0.0 - 1.5 mg/dl Normal 0 [facility] ( 86778) Comment: Performed By: #### 769139 ## ## [facility] [facility] [place] [address] Calcium [Mass/Vol] 9.6 8.6 - 10.2 mg/dl Normal 10-31-2019 [facility] ( 23279) Comment: Performed By: #### 229800 ## ## [facility] [facility] [place] [address] Chloride [Moles/Vol] 103 98 - 107 mmol/L Normal 0 [facility] ( 16235) Comment: Performed By: #### [id number] ## ## [facility] [facility] [place] [address] CO2 [Moles/Vol] 25.8 21.0 - 31.0 mmol/L Normal 10-31-2019 [facility] ( 60798) Comment: Performed By: #### 612112 ## ## [facility] [facility] [address] Creatinine [Mass/Vol] 1.0 0.6 - 1.2 mg/dl Normal 10-31-19 20 [facility] ( 87777) Comment: Performed By: #### 579911 ## ## [facility],[address] [place] [address] 00600 GFR/1.73 sq M predicted among Normal 10-31-2019 [facility] non-blacks MDRD (S/P/Bld) [Vol Hospital (58660) rate/Area] Comment: Result Comment: COMPREHENSIV E METABOLIC PANEL Performed By: #### 509859 ## ## [facility],[address] [place] [address] 28111 GFR/1.73 sq M >60 60 - 999 mL/min/{1.73_m2} Normal 0 [facility] predicted among [facility] non-blacks MDRD (000 00) (S/P/Bld) [Vol [...] OF AGE AND OLDER. Performed By: #### [id number] ## ## [facility],[address] [place] [address] 69325 Globulin (S) [Mass/Vol] 3.3 1.5 - 3.8 G/DL Normal 2019 [facility] ( 71378) Comment: Performed By: #### 786493 ## ## [facility],[address] [place] [address] 94876 Glucose [Mass/Vol] 96 74 - 106 mg/dl Normal 10-31-2019 [facility] ( 96593) Comment: Performed By: #### 731145 ## ## [facility],[address] [place] [address] 61570 Potassium [Moles/Vol] 3.9 3.5 - 5.1 mmol/L Normal 10-31-19 [facility] ( 16699) Comment: Performed By: #### 658800 ## ## [facility],[address] [place] [address] 31994 Protein [Mass/Vol] 7.7 6.4 - 8.3 g/dl Normal 10-31-2019 [facility] ( 63697) Comment: Performed By: #### 951521 ## ## [facility],[address] [place] [address] 11097 Sodium [Moles/Vol] 137 136 - 145 mmol/l Normal 10-31-2019 [facility] ( 77671) Comment: Performed By: #### 912020 ## ## [facility],[address] [place] [address] 75953 Urea nitrogen [Mass/Vol] 18 6 - 20 mg/dl Normal 10-31 [facility] ( 50748) Comment: Performed By: #### 613407 ## ## [facility],[address] [place] [address] 15960 cbc + diff on 10-31 Basophils (Bld) 0.20 0.00 - 0.10 x10EE3/UL High 10-31-2019 [facility] [#/Vol] [facility]ital (58691) Comment: Performed By: #### 285133 ## ## [facility],[address] [place] [address] 61754 Basophils/100 WBC (Bld) 2.0 0.0 - 2.0 % Normal 2019 [facility] ( 69772) Comment: Performed By: #### [id number] ## ## [facility],[address] [place] [address] 10245 CBC + DIFF Normal 10-31-2019 [facility] (40938) Comment: Result Comment: CBC-COMPLETE BLOOD COUNT Performed By: #### [id number] ## ## [facility],[address] [place] [address] 22204 Eosinophils (Bld) 0.40 0.00 - 0.50 x10EE3/UL Normal 10-31-2019 [facility] [#/Vol] [facility] (77837) Comment: Performed By: #### 322405 ## ## [facility],[address] [place] [address] 09361 Eosinophils/100 WBC (Bld) 4.8 0.0 - 7.0 % Normal 10-15 [facility] ( 29193) Comment: Performed By: #### [id number] ## ## [facility],[address] [place] [address] 89872 Erythrocyte distribution 13.7 12.0 - 15.6 % Normal [facility] (RBC) [Ratio] [facility] (31909) Comment: Performed By: #### [id number] ## ## [facility],[address] [place] [address] 23206 Hematocrit (Bld) [Volume 35.8 34.0 - 46.0 % Normal [facility] ( 25566) Comment: Performed By: #### [id number] ## ## [facility],[address] [place] [address] 99787 Hemoglobin (Bld) 12.3 12.0 - 16.0 g/dl Normal 10-31-2019 [facility] [Mass/Vol] [facility] (63711) Comment: Performed By: #### [id number] ## ## [facility],[address] [place] [address] 53130 Lymphocytes (Bld) 2.70 0.80 - 2.80 x10EE3/UL Normal 10-31-2019 [facility] [#/Vol] [facility] (09478) Comment: Performed By: #### [id number] ## ## [facility],[address] [place] [address] 56115 Lymphocytes/100 WBC (Bld) 30.3 20.0 - 45.0 % Normal [facility] ( 59671) Comment: Performed By: #### [id number] ## ## [facility],[address] [place] [address] 23310 MANUAL DIFF N/A Normal 10-31-2019 [facility] (20970) Comment: Performed By: #### [id number] ## ## [facility],[address] [place] [address] 46677 MCH (RBC) [Entitic mass] 30 27 - 33 pg Normal 10-31 [facility] ( 89005) Comment: Performed By: #### [id number] ## ## [facility],[address] [place] [address] 27220 MCHC (RBC) [Mass/Vol] 34 32 - 36 X10 3 Normal 10-31-19 20 [facility] ( 18410) Comment: Performed By: #### [id number] ## ## [facility],[address] [place] [address] 59825 MCV (RBC) [Entitic vol] 88 80 - 99 fl Normal 2019 [facility] ( 12115) Comment: Performed By: #### [id number] ## ## [facility],[address] [place] [address] 59679 Monocytes (Bld) 0.50 0.20 - 1.00 x10EE3/UL Normal 10-31-2019 [facility] [#/Vol] [facility] (39068) Comment: Performed By: #### [id number] ## ## [facility],[address] [place] [address] 13604 MONOS % 5.4 0.0 - 10.0 % Normal 10-31-2019 [facility] (38365) Comment: Performed By: #### [id number] ## ## [facility],[address] [place] [address] 61925 Morphology Ardian (Bld) [Interp] N/A Normal 10-31-2019 [facility] ( 48181) Comment: Performed By: #### [id number] ## ## [facility],[address] [place] [address] 87024 Neutrophils (Bld) 5.10 1.50 - 7.10 x10EE3/UL Normal 10-31-2019 [facility] [#/Vol] [facility] (69906) Comment: Performed By: #### [id number] ## ## [facility],[address] [place] [address] 66127 Neutrophils/100 WBC (Bld) 57.5 46.0 - 76.0 % Normal [facility] ( 20271) Comment: Performed By: #### [id number] ## ## [facility],[address] [place] [address] 26942 Platelet mean volume 8.9 6.6 - 10.5 fl Normal 10-31-19 20 [facility] (d) [Entitic vol] [facility] (65006) Comment: Result Comment: AUTOMATED DI FFERENTIAL Performed By: #### [id number] ## ## [facility],[address] [place] [address] 00936 Platelets (Bld) 280 150 - 450 x10EE3/UL Normal 10-31-2019 [facility] [#/Vol] [facility] (52959) Comment: Performed By: #### [id number] ## ## [facility],[address] [place] [address] 73490 RBC (Bld) [#/Vol] 4.06 4.10 - 5.30 x 10EE6/UL Low 0 [facility] ( 05146) Comment: Performed By: #### [id number] ## ## [facility],[address] [place] [address] 53963 WBC (Bld) [#/Vol] 8.8 4.5 - 10.8 x 10EE3/UL Normal 10-31-2019 [facility] ( 29228) Comment: Performed By: #### [id number] ## ## [facility] [address] hemogram on 2019-09 Erythrocyte distribution 13.6 11.5-14.5 % Normal 10-08 [facility] width (RBC) [Ratio] (93883) Comment: Performed By: #### BMP3M, MG 3, HEMOG #### [facility] [address], [place] Hematocrit (Bld) [Volume 33.3 35.0-47.0 % Low 10-08 [facility] fraction] (60818) Comment: Performed By: #### BMP3M, MG 3, HEMOG #### [facility] [address], [place] Hemoglobin (Bld) [Mass/Vol] 11.3 11.7-16.0 g/dL Low [facility] (21700) Comment: Performed By: #### BMP3M, MG 3, HEMOG #### [facility] [address], [place] MCH (RBC) [Entitic mass] 30.4 26.0-34.0 pg Normal 10-08 [facility] (01540) Comment: Performed By: #### BMP3M, MG 3, HEMOG #### [facility] [address], [place] MCHC (RBC) [Mass/Vol] 33.9 32.0-36.0 % Normal 10-08-19 [facility] (37460) Comment: Performed By: #### BMP3M, MG 3, HEMOG #### [facility] [address], [place] MCV (RBC) [Entitic vol] 89.9 79.0-98.0 fL Normal 2019 [facility] (08436) Comment: Performed By: #### BMP3M, MG 3, HEMOG #### [place] [address], [place] Platelet mean volume (Bld) 9.5 7.4-10.4 fL Normal [facility] [Entitic vol] (36590 ) Comment: Performed By: #### BMP3M, MG 3, HEMOG #### [facility] [address], [place] Platelets (Bld) [#/Vol] 240 140-440 10*3/uL Normal 2019 [facility] (91108) Comment: Performed By: #### BMP3M, MG 3, HEMOG #### [facility] [address], [place] RBC (Bld) [#/Vol] 3.70 3.80-5.20 10*6/uL Low 10-08-2019 [facility] (63311) Comment: Performed By: #### BMP3M, MG 3, HEMOG #### [place] [address], [place] WBC (Bld) [#/Vol] 18.5 3.6-10.7 10*3/uL High 10-08-2019 [facility] (73928) Comment: Performed By: #### BMP3M, MG 3, HEMOG #### [facility] [address], [place] ts gel on 2019-09-15 4 TS GEL ABO Group: Normal 10-07-2019 [facility] (92571) O Rh, Gel: POS Antibody Screen Gel: NEG Comment: Performed By: #### BMP3M, MG 3, HEMOG #### [facility] [address], [place] surgical pathology on 2019-10-07 Surgical [id number] Normal 10-07-2019 [facility] Pathology [facility] DEPARTMENT OF [facility] System PATHOLOGY AND (03048 ) LABORATORY MEDICINE [address] [place] [address] FINAL SURGICAL PATHOLOGY REPORT NAME: SALLY MCGREGOR : 1980 39 Y [place] CRISTOBAL NO.: [id number] LOCATION: I 5117 01 PROCEDURE 10/07/2019 DATE: [...] determined by the clinical labor atories of [facility]. They have not been cleared by the [facility] od and Drug Administration (FDA). The FDA [...] Results should be interpreted with caution given [facility] raised possibility of false negativity on decalcified specimens. Professional Performing Location: [address] [address]. DEPARTMENT OF PATHOLOGY AND LABORATORY MEDICINE [place], [place] [address] op note on Op Note PATIENT: SALLY MCGREGOR - [facility] ([id number]) ADMISSION DATE: 10/07/2019 SURGERY DATE: 10/07/2019 DATE [...] mass from a prior exam done in [facility] office. She underwent abdominal prep and [...] with a minimal EBL. Diskriter Job ID: [id number] Delon Palacios MD DOD:10/07/2019 10:46 A /semaj DOT:10/07/2019 12:51 P Job Number: [id number] Document Number: [id number] cc: Delon Palacios MD [employer] [facility] [address] Lui Harris MD [address] [place] [address], [address] [facility] [address] follicle stim hormone on 2019-09-15 Follicle Stim Hormone 6.5 m[IU]/mL Normal 09-15-19 [facility] (30256) Comment: Result Comment: Females: Follicular Phase ...... 2.3- 12.6 Mid-cycle Peak ........ 5.2- 17.5 Luteal Phase .......... 1.7- 12.9 Post-menopausal ....... 12.7 -132.2 Males: 0.7-10.8 Performed By: #### FSH3 #### [facility] [address] [place] [address] us pelvis ta/tv on 2019-09-11 US Pelvis TA/TV Patient Name: SALLY MCGREGOR 09-11-2019 [facility] (73486 ) Ultrasound Exam Date/Time 09/11/2019 14:17:16 EST Exam US Pelvis TA/TV Ordering Physician MARLA ARNDT REBECCA E. Accession Number [id number] CPT4 Codes 43416 (US Pelvis TA/TV), 89439 (US Transvaginal) Reason For Exam right ovarian mass seen on CT, s/p hysterectomy Report EXAMINATION: Transabdominal and transvaginal pelvic ultrasound. COMPARISON: CT scan of 09/11/2019 from [facility]. REASON FOR STUDY: Right ovarian mass; [...] 0.0 0.0-0.2 10*3/uL Normal 09-05-[address] [facility] (17260) Comment: Performed By: #### HEMDF, BM P3 #### [facility] [address] [place] [address] Abs Neutrophile Cnt 3.9 1.8-7.0 10*3/uL Normal 09-05-[address] [facility] (77712) Comment: Performed By: #### HEMDF, BM P3 #### [facility] [address] [place] [address] Basophils/100 WBC (Bld) 0.3 0.0-2.0 % Normal [address] [facility] (42512) Comment: Performed By: #### HEMDF, BM P3 #### [place] [address] [place] [address] Eosinophils (Bld) [#/Vol] 0.2 0.0-0.5 10*3/uL Normal 08-[address] [facility] (14369) Comment: Performed By: #### HEMDF, BM P3 #### [facility] [place] [address] Eosinophils/100 WBC (Bld) 3.3 1.0-6.0 % Normal 08-[address] [facility] (72463) Comment: Performed By: #### HEMDF, BM P3 #### [place] [address] [place] [address] Erythrocyte distribution 12.9 11.5-14.5 % Normal 09-[address] [facility] width (RBC) [Ratio] (56331) Comment: Performed By: #### HEMDF, BM P3 #### [place] [address] [place] [address] Granulocytes/100 WBC (Bld) 55.5 40.0-80.0 % Normal [facility] (11796) Comment: Performed By: #### HEMDF, BM P3 #### [place] [address] [place] [address] Hematocrit (Bld) [Volume 34.8 35.0-47.0 % Low 09-05 [facility] fraction] (21919) Comment: Performed By: #### HEMDF, BM P3 #### [facility] [address] [place] [address] Hemoglobin (Bld) [Mass/Vol] 11.5 11.7-16.0 g/dL Low [facility] (52800) Comment: Performed By: #### HEMDF, BM P3 #### [place] [address], [place] Lymphocytes (Bld) [#/Vol] 2.5 1.0-4.3 10*3/uL Normal 08-15 [facility] (79704) Comment: Performed By: #### HEMDF, BM P3 #### [place] [address], [place] Lymphocytes/100 WBC (Bld) 35.4 20.0-40.0 % Normal 08-15 [facility] (71930) Comment: Performed By: #### HEMDF, BM P3 #### [place] [address] [address], [place] MCH (RBC) [Entitic mass] 29.9 26.0-34.0 pg Normal 09-05 [facility] (85317) Comment: Performed By: #### HEMDF, BM P3 #### [place] [address], [place] MCHC (RBC) [Mass/Vol] 33.0 32.0-36.0 % Normal 09-05-20 19 [facility] (44815) Comment: Performed By: #### HEMDF, BM P3 #### [place] [address], [place] MCV (RBC) [Entitic vol] 90.7 79.0-98.0 fL Normal 2018 [facility] (29669) Comment: Performed By: #### HEMDF, BM P3 #### [place] [address], [place] Monocytes (Bld) [#/Vol] 0.4 0.0-0.8 10*3/uL Normal 2018 [facility] (27396) Comment: Performed By: #### HEMDF, BM P3 #### [facility] [address] [place] [address] Monocytes/100 WBC (Bld) 5.5 2.0-10.0 % Normal 2018 [facility] (39496) Comment: Performed By: #### HEMDF, BM P3 #### [facility] [place] [address], [place] Platelet mean volume (Bld) 9.8 7.4-10.4 fL Normal [facility] [Entitic vol] (31316 ) Comment: Performed By: #### HEMDF, BM P3 #### [place] [address], [place] Platelets (Bld) [#/Vol] 204 140-440 10*3/uL Normal 2018 [facility] (39772) Comment: Performed By: #### HEMDF, BM P3 #### [place] [address], [place] RBC (Bld) [#/Vol] 3.83 3.80-5.20 10*6/uL Normal 09-05-2019 [facility] (79496) Comment: Performed By: #### HEMDF, BM P3 #### [place] [address], [place] WBC (Bld) [#/Vol] 7.0 3.6-10.7 10*3/uL Normal 09-05-2019 [facility] (01328) Comment: Performed By: #### HEMDF, BM P3 #### [place] [address], [place] cr urography retrograde w/ + w/o kub on 2019-09-05 CR Urography Patient Name: SALLY MCGREGOR Normal 09-05-[address] [facility] Retrograde w/ + w/o System (42235) KUB Diagnostic Radiology Exam Date/Time 09/05/2019 08:12:21 EST Exam CR Urography Retrograde w/ + w/o KUB Ordering Physician MAUREEN STONE Accession Number [id number] CPT4 Codes 30525 () Reason For Exam Renal stone fluro c arm c and p Report A total of 1 minute and 11 seconds of fluoro time was used in the Operating Suite for this procedure. No other report will be generated. Final Signed Date and Time: 09/26/2019 2:02 pm Signed by: CLINICAL ALLERGIST, SYSTEM Transcribed Date and Time: 09/26/2019 1:19 Transcribed By:KRSITAN basic metabolic panel on 2019-09-05 Calcium [Mass/Vol] 8.7 8.4-10.4 mg/dL Normal 09-05-2019 [facility] (69329) Comment: Performed By: #### HEMDF, BM P3 #### [facility] [address] [place] [address] Anion gap [Moles/Vol] 7 Normal 09-05-20 [facility] (07929) Comment: Performed By: #### HEMDF, BM P3 #### [facility] [address] [place] [address] CO2 [Moles/Vol] 24 22-30 mmol/L Normal 09-05-2019 [facility] (24086) Comment: Performed By: #### HEMDF, BM P3 #### [facility] [address] [place] [address] Creatinine [Mass/Vol] 0.79 0.52-1.25 mg/dL Normal 09-05-20 [facility] (26920) Comment: Performed By: #### HEMDF, BM P3 #### [facility] [address] [place] [address] GFR/1.73 sq M > 60.0 >60 mL/min/{1.73_m2} Normal [address] [facility] predicted among Syst em (05307) blacks MDRD (S/P/Bld) [Vol rate/Area] Comment: Performed By: #### HEMDF, BM P3 #### [facility] [address] [place] [address] GFR/1.73 sq M > 60.0 >60 mL/min/{1.73_m2} Normal 9 [facility] predicted among Syst em (44291) non-blacks MDRD (S/P/Bld) [Vol rate/Area] Comment: Result Comment: Source- MDRD equation with creatinine calibration to IDMS(NKDEP) eGFR not recommended for dylon g dose adjustment Performed By: #### HEMDF, BM P3 #### [facility] [place] [address], [place] Glucose [Mass/Vol] 85 70-100 mg/dL Normal 09-05-2019 [facility] (22119) Comment: Performed By: #### HEMDF, BM P3 #### [facility] [place] [address], [place] Urea nitrogen [Mass/Vol] 5 7-20 mg/dL Low 09-05 [facility] (84671) Comment: Performed By: #### HEMDF, BM P3 #### [facility] [place] [address], [place] Chloride [Moles/Vol] 108 98-107 mmol/L High 9 [facility] (75761) Comment: Performed By: #### HEMDF, BM P3 #### [facility] [place] [address] [address], [place] Potassium [Moles/Vol] 4.0 3.5-5.1 mmol/L Normal 09-05-20 19 [facility] (52159) Comment: Performed By: #### HEMDF, BM P3 #### [facility] [place] [address] [address], [place] Sodium [Moles/Vol] 140 135-145 mmol/L Normal 09-05-2019 [facility] (96358) Comment: Performed By: #### HEMDF, BM P3 #### [facility] [place] [address], [place] magnesium on 2018-09-22 Magnesium [Mass/Vol] 1.9 1.6-2.3 mg/dL Normal 9 [facility] (39230) Comment: Performed By: #### BMP3M, MG 3, HEMOG #### [facility] [address], [place] hemogram on 2019-08 Erythrocyte distribution 13.2 11.5-14.5 % Normal 09-04 [facility] width (RBC) [Ratio] (49996) Comment: Performed By: #### BMP3M, MG 3, HEMOG #### [facility] [address], [place] Hematocrit (Bld) [Volume 36.7 35.0-47.0 % Normal 09-04 [facility] fraction] (18274) Comment: Performed By: #### BMP3M, MG 3, HEMOG #### [facility] [address], [place] Hemoglobin (Bld) 12.3 11.7-16.0 g/dL Normal 09-04-2019 [facility] [Mass/Vol] (46533) Comment: Performed By: #### BMP3M, MG 3, HEMOG #### [facility] [address], [place] MCH (RBC) [Entitic mass] 30.6 26.0-34.0 pg Normal 09-04 [facility] (21796) Comment: Performed By: #### BMP3M, MG 3, HEMOG #### [place] [address] [address], [place] MCHC (RBC) [Mass/Vol] 33.5 32.0-36.0 % Normal 09-04-20 19 [facility] (50143) Comment: Performed By: #### BMP3M, MG 3, HEMOG #### [facility] [address], [place] MCV (RBC) [Entitic vol] 91.3 79.0-98.0 fL Normal 2018 [facility] (71240) Comment: Performed By: #### BMP3M, MG 3, HEMOG #### [facility] [address], [place] Platelet mean volume (Bld) 10.4 7.4-10.4 fL Normal [facility] [Entitic vol] (54285 ) Comment: Performed By: #### BMP3M, MG 3, HEMOG #### [facility] [address], [place] Platelets (Bld) [#/Vol] 211 140-440 10*3/uL Normal 2018 [facility] (39732) Comment: Performed By: #### BMP3M, MG 3, HEMOG #### [facility] [address], [place] RBC (Bld) [#/Vol] 4.02 3.80-5.20 10*6/uL Normal 09-04-2019 [facility] (39512) Comment: Performed By: #### BMP3M, MG 3, HEMOG #### [place] [address], [place] WBC (Bld) [#/Vol] 7.1 3.6-10.7 10*3/uL Normal 09-04-2019 [facility] (82703) Comment: Performed By: #### BMP3M, MG 3, HEMOG #### [place] [address], [place] culture urine on 01-09-22 CULTURE URINE CULTURE URINE --> Status: F Normal 09-04-2019 [facility] No growth (<1,000 CFU/ml). (43235) Comment: Order Comment: Specimen Sour ce Comment:Urine, clean catch Performed By: #### C/UR #### [place] [address], [place] basic metabolic panel on 2019-09-04 Potassium [Moles/Vol] 3.5 3.5-5.1 mmol/L Normal 09-04-20 [facility] (41957) Comment: Performed By: #### BMP3M, MG 3, HEMOG #### [facility] [address], [place] Anion gap [Moles/Vol] 9 Normal 09-04-20 [facility] (77331) Comment: Performed By: #### BMP3M, MG 3, HEMOG #### [facility] [address], [place] Calcium [Mass/Vol] 8.8 8.4-10.4 mg/dL Normal 09-04-2019 [facility] (64260) Comment: Performed By: #### BMP3M, MG 3, HEMOG #### [place] [address] [address], [place] CO2 [Moles/Vol] 26 22-30 mmol/L Normal 09-04-2019 [facility] (20264) Comment: Performed By: #### BMP3M, MG 3, HEMOG #### [place] [address], [place] Glucose [Mass/Vol] 76 70-100 mg/dL Normal 09-04-2019 [facility] (54616) Comment: Performed By: #### BMP3M, MG 3, HEMOG #### [place] [address], [place] Urea nitrogen [Mass/Vol] 10 7-20 mg/dL Normal 09-04 [facility] (84815) Comment: Performed By: #### BMP3M, MG 3, HEMOG #### [place] [address], [place] Creatinine [Mass/Vol] 0.81 0.52-1.25 mg/dL Normal 09-04-20 19 [facility] (29100) Comment: Performed By: #### BMP3M, MG 3, HEMOG #### [place] [address], [place] GFR/1.73 sq M > 60.0 >60 mL/min/{1.73_m2} Normal [address] [facility] predicted among Syst em (26887) blacks MDRD (S/P/Bld) [Vol rate/Area] Comment: Performed By: #### BMP3M, MG 3, HEMOG #### [place] [address], [place] GFR/1.73 sq M > 60.0 >60 mL/min/{1.73_m2} Normal [address] [facility] predicted among Syst em (76606) non-blacks MDRD (S/P/Bld) [Vol rate/Area] Comment: Result Comment: Source- MDRD equation with creatinine calibration to IDMS(NKDEP) eGFR not recommended for dylon g dose adjustment Performed By: #### BMP3M, MG 3, HEMOG #### [facility] [address], [place] Sodium [Moles/Vol] 138 135-145 mmol/L Normal 09-04-2019 [facility] (55379) Comment: Performed By: #### BMP3M, MG 3, HEMOG #### [facility] [address], [place] Chloride [Moles/Vol] 103 98-107 mmol/L Normal 9 [facility] (59394) Comment: Performed By: #### BMP3M, MG 3, HEMOG #### [facility] [address], [place] cr abdomen ap on 01-09-21 CR Abdomen AP Patient Name: SALLY MCGREGOR 09-03-2019 [facility] (70591 ) Diagnostic Radiology Exam Date/Time 09/03/2019 17:35:36 EST Exam CR Abdomen AP Ordering Physician MD RACH,CONCHIS J Accession Number [id number] CPT4 Codes 68365 () Reason For Exam nephrolithiasis Report ABDOMEN, [...] on 2019-08-03 CNCO Letter Text Normal 08-03-[address] [facility] (61105) xr sacrum/coccyx 3v ap/lat on 2019-07-21 XR SACRUM/COCCYX 3V * * *Final Report* * * Normal 07-21-2019 [place] AP/LAT DATE OF EXAM: Jul 21 2019 11:38AM [facility] WOX 5246 - XR SACRUM/COCCYX 3V AP/LAT / 4 [place] PROCEDURE REASON: multiple diagnoses (42124) * * * * Physician Interpretation * [...] BONY ABNORMALITY IN THE PELVIS SEGMENT COCCYX. 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 Transcribe Date/Time: Jul 21 2019 4:01P Dictated by : ESTEE CUMMINGS MD This examination was interpreted and the report reviewed and electronically signed by: ESTEE CUMMINGS MD on Jul 21 2019 4:06PM EST [id number] tsh on 2019-07-21 TSH Qn 1.510 0.270-4.200 uU/mL Normal 07-21-[address] [facility] (32175) Comment: Result Comment: If the patie nt [...] et al. 2017 Guide lines of the [place] [employer] for the Diagnosis and Management of Thyroid Disease during and the . Thyroid, 2017:27:3:315-389. Performed By: #### HBA1C, TS Julieth, MORIAH #### [facility] [address] [place] [id number] progress on 2019-07 PROGRESS HNO ID: [id number] Normal 07-21-2019 [facility] Author: Elena Stauffer [place] ([id number]) Service: ? Author Type: ? Type: Progress [...] IV DATA: Not applicable SIGNED BY: Elena tSauffer July 21, 2019 11:23 AM PROGRESS HNO ID: [id number] Normal 07-21-2019 [facility] Author: Randi Arias [place] ([id number]) Service: ? Author Type: Physician Certified Physician'S Assistant Type: Progress Notes Filed: 07/21/2019 11:26 AM [...] Benign liver cyst 05/24/[address] [facility] 11/2009 and 04/2010 showe 4 mm increase in size . No pain. No elevated LFTs on 03/11/2010. - Calculus of kidney 05/17/[address] Nicolas: Hospitalized age 20, and again later -- no procedures so far ([facility], [facility], 1995 [facility]) - Dysmenorrhea - Impaired fasting glucose 05/17/2008 [...] TOTAL ABDOM HYSTERECTOMY 08/31/06 Hysterectomy, [facility] Family History FAMILY HISTORY Problem Relation Age [...] Partners: Male control/protection: Surgical Comment: [facility] Lifestyle Physical activity: Days per week: Not on file Minutes per session: Not on file Stress: Not on file Relationships Social connections: Talks on phone: Not on file Gets together: Not on file Attends sabianist service: Not on file Active member of [...] Cholesterol [Mass/Vol] 206 <200 mg/dL High 019 [facility] (80132) Comment: Result Comment: <200 mg/dL, Desirable 200-239 mg/dL, Borderline hi gh >239 mg/dL, High Performed By: #### HBA1C, TS H, LIPNF #### [facility] [address] [place], [place] [address] Cholesterol in 2.39 <2.54 mg/dL Normal 07-21-2019 [facility] LDL/Cholesterol in HDL [[place] ([address]40) ratio] Comment: Result Comment: Reference: 1. National Cholesterol Educ ation Program ATP III Guideline At-A-Glance Quick Desk Reference: National Heart, Lung, and Blood [place]. National Institutes of Health. 2001: NIH Publication No. 01-3305. 2. An International Atherosc lerosis Society position paper: global recommendations for the management of dyslipidemia: executive summary, Atherosclerosis. 2014: 232(2):410-413. Performed By: #### HBA1C, TS H, LIPNF #### [facility] [address] [place], [place] [address] Cholesterol.total/Cholesterol in 4.04 <5.10 mg/dL Normal 07-21-2019 [place] HDL [Mass ratio] [facility] [place] ([address]) Comment: Performed By: #### HBA1C, TS H, LIPNF #### [facility] [address] [place], [place] [address] HDL Cholesterol, NF 51 >39 mg/dL Normal 07-21-2019 [facility] (30429) Comment: Result Comment: 40-59 mg/dL, Acceptable >59 mg/dL, High: Negative ri sk factor for coronary heart disease <40 mg/dL, Low: Positive ris k factor for coronary heart disease Performed By: #### HBA1C, TS H, LIPNF #### [facility] [address] [place], [place] [address] LDL Cholesterol, NF 122 <100 mg/dL High 07-21-2019 [facility] ([id number]) Comment: Result Comment: <100 mg/dL, Optimal 100-129 mg/dL, Near optimal/ above optimal 130-159 mg/dL, Borderline hi gh 160-189 mg/dL, High >189 mg/dL, Very high Secondary prevention optimal LDL Cholesterol levels are recommended to be < 70 mg/dL Performed By: #### HBA1C, TS H, LIPNF #### [facility] [address] [place] [address] Non HDL Chol, NF 155 <130 mg/dL High 07-21-2019 [facility] (88984) Comment: Result Comment: <130 mg/dL, Optimal 130-159 mg/dL, Near optimal/ above optimal 160-189 mg/dL, Borderline hi gh 190-219 mg/dL, High >219 mg/dL, Very high Secondary prevention optimal non HDL Cholesterol levels are recommended to be < 100 mg/dL Performed By: #### HBA1C, TS H, LIPNF #### [facility] [address] [place] [address] Triglycerides, NF 163 <150 mg/dL High 07-21-2019 C [facility] (08868) Comment: Result Comment: <150 mg/dL, Normal 150-199 mg/dL, Borderline hi gh 200-499 mg/dL, High >499 mg/dL, Very high Performed By: #### HBA1C, TS H, LIPNF #### [facility] [address] [place] [address] VLDL Cholesterol, NF 33 <30 mg/dL High 9 [facility] (48339) Comment: Performed By: #### HBA1C, TS H, LIPNF #### [facility] [address] [place] [address] hemoglobin a1c on HbA1c (Bld) [Mass fraction] 5.3 4.3-5.6 % Normal [facility] (31058) Comment: Result Comment: [place] Marya betes Association guidelines indicate that patients with HgbA1c in the range 5.7-6.4% are at increased risk for development of diabetes, and intervention by lifestyle modification may be beneficial. HgbA1c greater o r equal to 6.5% is considered diagnostic of diabetes. Performed By: #### HBA1C, TS H, LIPNF #### [facility] [address] [place] [address] HbA1c (Bld) [Mass fraction] 105 mg/dL Normal [facility] (55873) Comment: Result Comment: eAG: (Jaimiea arnie average glucose) is a calculated value from HgbA1c and is access representative of the average blood glucose level in the last 2-3 month period. Performed By: #### HBA1C, TS H, LIPNF #### [facility] [address] [place], [place] [id number] cnov on 2019-07-21 CNOV Office Visit (FAMPWS) Normal 07-21-20 [place] [facility] SALLY MCGREGOR ([id number]) 1980 [facility] Date Time Provider Department ([id number]) 07/21/19 10:40 AM JAY ARIAS) FAMPWS During [...] Benign liver cyst 05/24/[address] [facility] 11/2009 and 04/2010 showe 4 mm increase in size . No pain. No elevated LFTs on 03/11/2010. - Calculus of kidney 05/17/[address] Nicolas: Hospitalized age 20, a nd again later -- no procedures so far ([facility], [facility], [address] [facility]) - Dysmenorrhea - Impaired fasting glucose 05/17/2008 [...] TOTAL ABDOM HYSTERECTOMY 08/31/06 Hysterectomy, [facility] Family History FAMILY HISTORY Problem Relation Age [...] Partners: Male control/protection: Surgical Comment: [facility] Lifestyle Physical activity: Days per week: Not on file Minutes per session: Not on file Stress: Not on file Relationships Social connections: Talks on phone: Not on file Gets together: Not on file Attends sabianist service: Not on file Active member of [...] Z13.6] Order(s):CONSULT TO NEUROLOGY [9019] Order #: [id number]: 1 FUTURE amitriptyline (ELAVIL) 50 mg tabletTake 1 tablet by mouth da federico at bedtime.Disp: 30 tabletRfl: 5 XR LUMBAR GENERAL 3V AP/LAT/L5-S1 [[id number]] Order #: [id number] FUTURE XR SACRUM/COCCYX 3V AP/LAT [[id number]] Order #: [id number] FUT URE TSH BLD [SQTSH] Order #: [id number] FUTURE HGB A1C [SSSEQ7R] Order #: [id number] FUTURE LIPID PANEL, NONFASTING [SQLIPNF] Order #: [id number] FUTURE cyclobenzaprine (FLEXERIL) 10 mg tabletTake 1 [...] - 3. Body Temperature 97.81 [degF] 05-17-2020 [facility] (93214) Body Temperature 97.9 [degF] 05-08-2020 [facility] (80220) Body weight 89.9 kg 05-17-2020 [facility] (57183) Body weight 93.89 kg 05-08-2020 [facility] (58058) BP Diastolic 82 mm[Hg] 05-17-2020 [facility] (65545) BP Diastolic 76 mm[Hg] 05-08-2020 [facility] (89153) BP Systolic 124 mm[Hg] 05-17-2020 [facility] (86442) BP Systolic 121 mm[Hg] 05-08-2020 [facility] (25697) Height 154.9 cm 05-08-2020 [facility] (13836) Pulse (Heart Rate) 86 /min [facility]27[facility] Pulse (Heart Rate) 91 /min 05-08-2020 [facility] nghia (48039) Pulse Oximetry 97 % 05-08-2020 [facility] (83144) Respiratory Rate 16 /min [facility] Respiratory Rate 18 /min [facility]-08-[facility] (95727[facility] Encounters Date Type Reason Provider Location 06-25-2020 - Chart abstracting Postoperative pain Noaman Tanesha [facility] 06-25-2020 [facility] Comment: Refill Request 05-23-2020 - E-mail encounter Isabel Romero) [facility] 05-23-2020 from carer Hugo 03-24-2020 - Emergency Migraine, CORBY Johnston 03-24-2020 department unspecified, not [facility] patient visit intractableCORBY ([id number]) without status [facility] migrainosus CORBY M OLVIN ARIAS UNKNOWN PROVIDER 01-21-2020 - Emergency ANA Johnston 01-21-2020 [facility] ANA ALVARADO ([id number]) JENNIFER ARIAS UNKNOWN PROVIDER 11-25-2019 - Emergency ANA Johnston 11-25-2019 department [facility] al patient visit ANA ALVARADO ([id number]) JENNIFER ARIAS UNKNOWN PROVIDER 10-31-2019 - Emergency Lower abdominal NIKHIL Moreira e 10-31-2019 [facility] unspecified NIKHIL Shannon ([id number]) JEAN ARIAS UNKNOWN PROVIDER 04-26-2020 - Letter encounter Johnny Mccall [facility] 04-26-2020 [facility] 05-14-2020 - Orders Only Liver cyst Johnny Mccall [facility]-14-[facility] Comment: Liver cyst (Primary Dx) 05-11-2020 - Orders Only Idiopathic acute Johnny Mccall [facility]astroenter [facility] [place] 05-11-2020 pancreatitis Winn Comment: Idiopathic acute pancreatiti s, unspecified complication status (Primary Dx) surgical referral 05-10-2020 - Orders Only Idiopathic acute Johnny Mccall [facility] [place] 05-10-2020 pancreatitis Winn Comment: Idiopathic acute pancreatiti s, unspecified complication status (Primary Dx) 06-05-2020 - Patient encounter Cyst of pancreas Mala [facility] 06-05-2020 procedure [facility] Comment: Pancreatic cyst (Primary Dx) 05-30-2020 - Patient [facility] Provider Adolfo lyle 05-30-2020 encounter procedure 05-24-2020 - Patient Abdominal Johnny Mccall Gastroenterolog y 05-24-2020 encounter bloating [facility] procedure Comment: Bloating (Primary Dx); Nausea and vomiting, intract ability of vomiting not specified, unspecified vomiting type; Diarrhea, unspecified type 05-23-2020 Patient encounter Postoperative pain Isabel Romero) [facility] procedure Arias [place] Comment: RE: Appointment Request 05-17-2020 - Patient encounter Shoulder pain Xr [facility] [place] [facility] 05-17-2020 procedure Kenia (Jaki) Bartolo Bernard (Jaki) Bartolo Comment: Radiology XR Acute pain of right shoulder (Primary Dx) 04-30-2020 - Patient encounter Generalized abdominal Us [facility] R adiology 04-30-2020 procedure pain Mob 1 Comment: Radiology US 05-30-2020 Results Only [facility] Provider [facility] Department 05-08-2020 - Subsequent Generalized Johnny Mccall Ambulatory 05-08-2020 hospital visit by abdominal pain [facility] Surgery physician Comment: Generalized abdominal pain [ R10.84] 06-05-2020 - Telemedicine Mala Almendarez [facility] c 06-05-2020 consultation with patient 05-24-2020 - Telemedicine Johnny Mccall [facility] 05-24-2020 consultation with Hannah patient 06-15-2020 - Telephone encounter Local infection Taty (Healthcare Sales Representative [facility] 06-15-2020 of wound Hands Assembler) [facility] SURGERY DEPARTMENT Comment: Multiple Concerns 05-31-2020 - Telephone encounter Johnny Mccall Gastroen terology [place] 05-31-2020 [facility] Comment: Patient Update 05-18-2020 - Telephone Shoulder pain Marcelino Mejia [facility] luke 05-18-2020 encounter [place] Comment: Referral Request 05-07-2020 - Telephone encounter Johnny Mccall Gastroen terology [place] 05-07-2020 [facility] Comment: Patient Update 05-01-2020 - Telephone encounter Johnny Mccall Gastroen terology [place] 05-01-2020 [facility] Comment: Results 04-30-2020 - Telephone encounter Johnny Mccall Gastroen terology [place] 04-30-2020 [facility] Comment: Returning Patient's Call 04-27-2020 - 04-27-2020 Telephone encounter Marcelino Mejia [facility] [place] Comment: Medication request Procedures Procedure Name Date Provider Location Antibody screen 06-11-2020 [facility] ([id number]) Comment: Performed By: #### CBCD1 ### # [place] [address] CARDIAC 05-30-2020 [facility] Provider [facility] (01072) Radex shoulder complete minimum 2 05-17-2020 - Kenia (Jaki) [facility] views 05-17-2020 Workman (48457) SURGICAL PATHOLOGY 05-08-2020 Johnny Mccall [place] [facility] [place] (48907) Colonoscopy flx dx w/collj spec 05-08-2020 [facility] Provider [facility] when pfrmd (38133) Esophagogastroduodenoscopy 05-08-2020 [facility] Provider [facility] transoral diagnostic (40631) Us abdominal real time w/image 04-30-2020 - Johnny Mccall [facility] limited 04-30-2020 [place] (30820) Urinalysis 10-31-2019 [facility] (58489) Comment: Result Comment: URINALYSIS Performed By: #### [id number] ## ## [facility],[address] [place] [address] Plan of Treatment Plan Description Date Location DTAP,TDAP,TD (2 - Td) DTAP,TDAP,TD (2 - Td) 05-28-2025 - [facility] 05-28-2025 (01286) INFLUENZA (#1) INFLUENZA (#1) 2020 - [facility] 05-15-2020 (38533) MAMMOGRAM MAMMOGRAM 2019 - [facility] 2019 (52427) COLONOSCOPY COLONOSCOPY 1997 - [facility] 1997 (44411) HEPATITIS C SCREENING HEPATITIS C SCREENING 1997 - [facility] 1997 (18016) HIV SCREENING HIV SCREENING 1997 - [facility] 1997 (62797) COLONOSCOPY - COLONOSCOPY - DIAGNOSTIC 05-08-2020 [facility] DIAGNOSTIC Endoscopy Routine (71626) Generalized abdominal pain Loose stools Dyspepsia Gastroesophageal reflux disease, esophagitis presence not specified Other dysphagia History of acute pancreatitis Bloating Nausea and vomiting, intractability of vomiting not specified, unspecified vomiting type 1 Occurrences starting 05/08/2020 until 05/08/2020 Comment: 1 Occurrences starting 05/08 until 05/08/2020 EGD EUS EGD EUS Endoscopy Routine Idiopathic 05-10-2021 [facility] (47436) acute pancreatitis, unspecified complication status 1 Occurrences starting 05/10/2020 until 05/10/2021 Comment: 1 Occurrences starting 05/10 until 05/10/2021 EGD EGD Endoscopy Routine Generalized abdominal 04-15 [facility] (86953) pain Loose stools Dyspepsia Gastroesophageal reflux disease, esophagitis presence not specified Other dysphagia History of acute pancreatitis Bloating Nausea and vomiting, intractability of vomiting not specified, unspecified vomiting type 1 Occurrences starting 05/08/2020 until 05/08/2020 Comment: 1 Occurrences starting 05/08 until 05/08/2020 MRI ABDOMEN WO/W IVCON MRI ABDOMEN WO/W IVCON 07-05-2021 Cl [facility] (66348) Radiology Routine Pancreatic cyst 1 Occurrences starting 06/05/2020 until 07/05/2021 Comment: 1 Occurrences starting 06/05 until 07/05/2021 PRE-PROCEDURE & PRE-PROCEDURE & 05-10-2021 [facility] PRE-OPERATIVE COVID PRE-OPERATIVE COVID (75429) Microbiology Routine Idiopathic acute pancreatitis, unspecified complication status 1 Occurrences starting 05/10/2020 until 05/10/2021 Comment: 1 Occurrences starting 05/10 until 05/10/2021 SURGICAL PATHOLOGY SURGICAL PATHOLOGY Lab Routine [facility] (93071) 05/08/2020 1:17 PM EDT no information [facility] (82844) Immunizations Vaccine Notes Status Date Location Influenza Seasonal influenza, seasonal, (completed) 05-11-2020 - C [facility] Inj Age 3+ injectable 05-11-2020 (27604) Influenza Seasonal influenza, seasonal, (completed) 05-31-2019 - C [facility] Inj Age 3+ injectable 05-31-2019 (90175) Pneumovax pneumococcal (completed) 05-19-2017 - [facility] c polysaccharide vaccine, 05-19-2017 (441 95) 23 valent Tdap (Age 7+) tetanus toxoid, reduced (completed) 05-28-2015 - [facility] diphtheria toxoid, and 05-28-2015 (4419 5) acellular pertussis vaccine, adsorbed Payers Payer Name Policy Number Location [facility] [id number] [facility] OUTPATIENT (53003) [place] [employer] [id number] [facility] ([id number]) [phone]) [id number] [facility] (06159) [id number] [facility] (70312) [id number] [facility] (31756) [id number] [facility] (87697) The following information is from the original human readable contentNo Payer Records FoundNo Payer Records FoundNo Payer Records FoundNo Payer Records FoundNo Payer Records FoundNo Payer Records FoundNo Payer Records FoundNo Payer Records FoundNo Payer Records Found Social History Type Social History Date Location Description History of tobacco use Current smoker 01-12-2017 [facility] (89832) Alcohol Comment Occasional 11-26-2010 - [facility] 11-26-2010 (66596) History of tobacco use Cigarette Smoker 01-12-2017 [facility] (22052) Cigarettes smoked 05-17-2020 - [facility] current (pack per day) 06-08-2020 (16759) - Reported Tobacco use and Never used 05-17-2020 - [facility] exposure 06-08-2020 (96784) Alcohol intake Current drinker of 05-17-2020 - [place] [facility] alcohol (finding) 06-08-2020 (26023) Tobacco Comment Approx. 3 cigarettes 03-10-2011 - [place] [facility] daily-1 pack every week 03-10-2011 (55882) Tobacco smoking status Former smoker 05-17-2020 - [facility] NHIS 06-08-2020 (48333) Sex Assigned At Not on file [facility] (29657) Exposure to SARS-CoV-2 Not sure [facility] (event) (83468) History SDOH Financial 5 06-08-2020 - [facility] 06-08-2020 (19725) History SDOH Food Worry 1 06-08-2020 - [facility] 06-08-2020 (95769) History SDOH Transport 2 06-08-2020 - [facility] Med 06-08-2020 (98235) Exposure to SARS-CoV-2 Yes [facility] (event) (38931) The following information is from the original [...] [facility] MD documented in this encounterKenia Mcfarland (Hands Assembler) - 05/17/2020 11:57 AM EDT Visit Date: May 17, 2020 Patient Name: Ms.Nichole Jeana Mcgregor Date of : 1980 MRN/E #: [id number] Chief Complaint Patient presents with: right shoulder [...] is provided by the patient. No language instructor was used. PAIN EVALUATION 05/17/2020 1153 Pain [...] Benign liver cyst 05/24/[address] [facility] 11/2009 and 04/2010 showe 4 mm increase in size. No pain. No elevated LFTs on 03/11/2010. ? Calculus of kidney 05/17/[address] Nicolas: Hospitalized age 20, and again later -- no procedures so far ([facility], [address] [facility]) ? Dysmenorrhea ? History of blood transfusion [...] go to the ED. Patient went to [place] ED and mentions 'nothing was done. They [...] note she presented to the ED in [place] in January 2020 for abdominal pain of [address] abdomen was essentially unremarkable including pancreas. Was found to have lipase of 193 on 02/15/2020. Amylase normal. Hepatic function panel. ? Has h/o cholecystectomy in 1998. PAST MEDICAL HISTORY Diagnosis Date ? Allergic rhinitis, cause unspecified 05/17/2008 Spring and summer ? Benign liver cyst 05/24/[address] [facility] 11/2009 and 04/2010 showe 4 mm increase in size. No pain. No elevated LFTs on 03/11/2010. ? Calculus of kidney 05/17/[address] Nicolas: Hospitalized age 20, and again later -- no procedures so far ([facility]) ? Cancer (HCC) ? Diverticulosis ? Dysmenorrhea [...] TOTAL ABDOM HYSTERECTOMY 08/31/06 Hysterectomy, [facility] FAMILY HISTORY Problem Relation Age of Onset [...] the ED yesterday - she went to [place] ED and was told that pancreas levels [...] for nausea. Advised to go to the [facility] ED if no improvement in symptoms. 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 [address] [place], [place] [phone] Phone: Fax: Status Reason Specialty Diagnoses / Referred By Referred To Procedures Contact Contact Authorized PCP Requested Orthopedics Diagnoses Acute shoulder pain, unspecified laterality Marcelino Mejia Referral Procedures CONSULT TO ORTHOPAEDICS NEW PATIENT VISIT LEVEL 5 [address] [place] [address] Status Reason Specialty Diagnoses / Referred By Referred To Procedures Contact Contact Pending Review Auto-Generated MR IMAGING Diagnoses Pancreatic cyst Mala Almendarez Mr Imaging Referral Procedures MRI ABDOMEN WO/W IVCON MRI,ABDOMEN,W&WO CONTRS [address] [address] Status Reason Specialty Diagnoses / Procedures Referred By C ryan Referred To Contact Closed Diagnoses Post-op pain Mala Almendarez [address] [address] Phone: Instructions Patient InstructionsKenia Mcfarland) - 05/17/2020 [...] BE BASED ON THE PRIMARY CLINICAL RECORDS. [facility] provides no warranty or guarantee of the accuracy or completeness of information in this document. UNRECOGNIZED CONTENT PROVIDED BELOW FOR UNRECOGNIZED SECTION Source Comments In the event this information is protected by the Federal Confidentiality of Alcohol and Drug Abuse Patient Records regulations: The Federal rules restrict any use of the information to criminally investigate or prosecute any alcohol or drug abuse patient.[facility] the event this information is protected by the Federal Confidentiality of Alcohol and Drug Abuse Patient Records regulations: The Federal rules restrict any use of the information to criminally investigate or prosecute any alcohol or drug abuse patient.[facility] HospitalIn the event this information is protected by the Federal Confidentiality of Alcohol and Drug Abuse Patient Records regulations: The Federal rules restrict any use of the information to criminally investigate or prosecute any alcohol or drug abuse patient.[facility] HospitalIn the event this information is protected by the Federal Confidentiality of Alcohol and Drug Abuse Patient Records regulations: The Federal rules restrict any use of the information to criminally investigate or prosecute any alcohol or drug abuse patient.[facility] HospitalIn the event this information is protected by the Federal Confidentiality of Alcohol and Drug Abuse Patient Records regulations: The Federal rules restrict any use of the information to criminally investigate or prosecute any alcohol or drug abuse patient.[facility] HospitalIn the event this information is protected by the Federal Confidentiality of Alcohol and Drug Abuse Patient Records regulations: The Federal rules restrict any use of the information to criminally investigate or prosecute any alcohol or drug abuse patient.[facility] HospitalIn the event this information is protected by the Federal Confidentiality of Alcohol and Drug Abuse Patient Records regulations: The Federal rules restrict any use of the information to criminally investigate or prosecute any alcohol or drug abuse patient.[facility] HospitalIn the event this information is protected by the Federal Confidentiality of Alcohol and Drug Abuse Patient Records regulations: The Federal rules restrict any use of the information to criminally investigate or prosecute any alcohol or drug abuse patient.[facility] HospitalIn the event this information is protected by the Federal Confidentiality of Alcohol and Drug Abuse Patient Records regulations: The Federal rules restrict any use of the information to criminally investigate or prosecute any alcohol or drug abuse patient.[facility] HospitalIn the event this information is protected [...] or prosecute any alcohol or drug abuse patient.[facility] HospitalIn the event this information is protected by the Federal Confidentiality of Alcohol and Drug Abuse Patient Records regulations: The Federal rules restrict any use of the information to criminally investigate or prosecute any alcohol or drug abuse patient.[facility] HospitalIn the event this information is protected by the Federal Confidentiality of Alcohol and Drug Abuse Patient Records regulations: The Federal rules restrict any use of the information to criminally investigate or prosecute any alcohol or drug abuse patient.[facility] HospitalIn the event this information is protected by the Federal Confidentiality of Alcohol and Drug Abuse Patient Records regulations: The Federal rules restrict any use of the information to criminally investigate or prosecute any alcohol or drug abuse patient.[facility] HospitalIn the event this information is protected by the Federal Confidentiality of Alcohol and Drug Abuse Patient Records regulations: The Federal rules restrict any use of the information to criminally investigate or prosecute any alcohol or drug abuse patient.[facility] HospitalIn the event this information is protected by the Federal Confidentiality of Alcohol and Drug Abuse Patient Records regulations: The Federal rules restrict any use of the information to criminally investigate or prosecute any alcohol or drug abuse patient.[facility] HospitalIn the event this information is protected by the Federal Confidentiality of Alcohol and Drug Abuse Patient Records regulations: The Federal rules restrict any use of the information to criminally investigate or prosecute any alcohol or drug abuse patient.[facility] HospitalIn the event this information is protected by the Federal Confidentiality of Alcohol and Drug Abuse Patient Records regulations: The Federal rules restrict any use of the information to criminally investigate or prosecute any alcohol or drug abuse patient.[facility] HospitalIn the event this information is protected by the Federal Confidentiality of Alcohol and Drug Abuse Patient Records regulations: The Federal rules restrict any use of the information to criminally investigate or prosecute any alcohol or drug abuse patient.[facility] HospitalIn the event this information is protected by the Federal Confidentiality of Alcohol and Drug Abuse Patient Records regulations: The Federal rules restrict any use of the information to criminally investigate or prosecute any alcohol or drug abuse patient.[facility] HospitalIn the event this information is protected by the Federal Confidentiality of Alcohol and Drug Abuse Patient Records regulations: The Federal rules restrict any use of the information to criminally investigate or prosecute any alcohol or drug abuse patient.[facility] HospitalIn the event this information is protected by the Federal Confidentiality of Alcohol and Drug Abuse Patient Records regulations: The Federal rules restrict any use of the information to criminally investigate or prosecute any alcohol or drug abuse patient.[facility] HospitalIn the event this information is protected by the Federal Confidentiality of Alcohol and Drug Abuse Patient Records regulations: The Federal rules restrict any use of the information to criminally investigate or prosecute any alcohol or drug abuse patient.[facility] UNRECOGNIZED CONTENT PROVIDED BELOW FOR UNRECOGNIZED [...] dyspepsia,gerd,dysphagia 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, 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 Johnny Winn [facility] ENDOSCOPY Procedures COLONOSCOP W/ OR W/O [facility] SPEC EGD W/O OR W/BRUSH/WASH COLONOSCOPY W/EGD [facility] [address] [place], [place] [address] Phone: [place], [place] [phone] Fax: Reason Onset Date Comments Patient [...] DATE CREATED AUTHOR AUTHOR'S ORGANIZATIO N 10/21/2019 [facility] DATE CREATED AUTHOR AUTHOR'S ORGANIZATIO N 04/06/2020 [facility] DATE CREATED AUTHOR AUTHOR'S ORGANIZATIO N 02/26/2020 [facility] ([place]) DATE CREATED AUTHOR AUTHOR'S ORGANIZATIO N 06/11/2020 [facility] DATE CREATED AUTHOR AUTHOR'S ORGANIZATIO N 06/21/2020 [facility] DATE CREATED AUTHOR AUTHOR'S ORGANIZATIO N 06/26/2020 [facility] UNRECOGNIZED CONTENT PROVIDED BELOW FOR [...] would send Rx for phenergan to [facility]. Reports she's had nausea for weeks. [...] panel was not drawn, left message with [place] lab to contact patient for redraw [place] [...] or do not improve. Taty Perea APRN, STRIP CUTTING MACHINE OPERATOR documented in this encounter UNRECOGNIZED CONTENT PROVIDED BELOW FOR UNRECOGNIZED SECTION H&P Notes Johnny iWnn - 05/08/2020 1:30 PM EDTHISTORY AND PHYSICAL [...]
== END 2020-02-05 09:47 | disposition home or self-care (01) | DRG 282 ==
LOC: ED 18:24 → MS3 19:28
PROVIDERS: Admitting Provider Internal Medicine; Emergency Provider Emergency Medicine; PCP Physician Assistant; Visit Provider Family Medicine
DX: K85.90 Acute pancreatitis without necrosis or infection, unspecified (principal); K76.9 Liver disease, unspecified; E78.5 Hyperlipidemia, unspecified; F41.9 Anxiety disorder, unspecified; F31.9 Bipolar disorder, unspecified; R91.1 Solitary pulmonary nodule; K27.9 Peptic ulcer, site unspecified, unspecified as acute or chronic, without hemorrhage or perforation; E87.6 Hypokalemia; N20.0 Calculus of kidney; D64.9 Anemia, unspecified; I45.10 Unspecified right bundle-branch block; F17.200 Nicotine dependence, unspecified, uncomplicated; E66.9 Obesity, unspecified; F51.5 Nightmare disorder; Z85.42 Personal history of malignant neoplasm of other parts of uterus; Z68.36 Body mass index [BMI] 36.0-36.9, adult; Z80.3 Family history of malignant neoplasm of breast; Z82.49 Family history of ischemic heart disease and other diseases of the circulatory system; Z83.3 Family history of diabetes mellitus; Z85.41 Personal history of malignant neoplasm of cervix uteri; Z85.43 Personal history of malignant neoplasm of ovary; Z87.11 Personal history of peptic ulcer disease; Z90.49 Acquired absence of other specified parts of digestive tract; Z90.710 Acquired absence of both cervix and uterus; Z98.51 Tubal ligation status; K04.7 Periapical abscess without sinus; K21.9 Gastro-esophageal reflux disease without esophagitis; G89.4 Chronic pain syndrome; F51.04 Psychophysiologic insomnia
CPT/HCPCS: 36415; 74177; 80048; 80053; 80076; 81001; 83690; 83735; 85025; 85027; 94640; 99251; 99284; 99406; J7030; Q9967; A4216; G0463; J2405

== ENCOUNTER 2020-02-09 14:07 | Inpatient (IN) | payer MEDICAID, SELFPAY ==
[2020-02-09 14:09] VITALS: BP 145/91; PULSE 85; RESP 14; TEMP 36.8; O2SAT 98; BMI 40.9
--- NOTE | 2020-02-09 14:32 | ED.VISSUMM ---
- ER Visit Summary Date of Service: 02/09/20 Chief Complaint: [Abdominal pain] History of Present Illness: The patient is a 39 F [does the emergency department complaint of abdominal pain and vomiting started last evening. Patient was discharged from the hospital 4 days ago after being treated for pancreatitis. Patient states she was having hard time sleeping because they took her off her Seroquel because it was believed that maybe that was contributing to her pancreatitis. Patient was finally able to sleep again last night she believes because she had thrown up so much. She states that she is thrown up about 10 times. She states she cannot keep any liquids down. She denies any fever. She denies diarrhea. She denies urinary symptoms. Patient denies alcohol use. She is had a cholecystectomy. She has a history of anxiety and bipolar disorder. Patient also has had prior hysterectomy and both ovaries removed. She has history of uterine cancer.] Physical Examination: [HEENT-PERRLA, EOMI. Cranial nerves II through XII grossly intact. TMs clear. Mucous membranes moist. No adenopathy. Cardiovascular-regular rate and rhythm without murmur or ectopy Lungs-clear to auscultation, chest wall stable without crepitus or subcu emphysema Abdomen-normoactive bowel sounds, soft. Patient has tenderness palpation diffusely over the epigastric region with some guarding. There is no rebound, rigidity, or peritoneal signs. Extremities-intact ?4, normal range of motion, normal pulses, atraumatic] Test Results: [CBC with differential obtained showed a white of 8.7, hemoglobin 11.7, hematocrit 37, platelets 468. Chemistries unremarkable. LFTs were normal. Lipase was elevated 1075.] Emergency Department Course and Treatment: [IV line was established. Patient was ordered normal saline. Patient was treated with Dilaudid 1 mg IV as well as Zofran 4 mg IV.] Treatment Plan: [Admit for IV fluids and pain control as antiemetics.] Disposition: [Admit] Impression: [Abdominal pain Pancreatitis] This note was generated with [employer] dictation software. It may contain incorrect words, spelling, and punctuation that were not noted in review of the chart prior to signing ED Disposition - Plan for ED Patient: Referrals: Isabel Arias PA [Primary Care Provider] -
[2020-02-09] MEDS: 0.9% Normal Saline 1,000 ML 1000 ML IV (14:44)
[2020-02-09] MEDS: Ondansetron 4 MG/2 ML Vial IV (14:44)
[2020-02-09 14:54] LABS: Absolute Lymphocyte Count 2.27 X10^3/uL (0.83-4.51); Absolute Neutrophil Count 5.5 X10^3/uL (2.0-7.7); Basophil# 0.04 X10^3/uL; Basophil% 0.5 % (0-1); Eosinophil# 0.34 X10^3/uL; Eosinophils% 3.9 % (0-5); Hematocrit 37.1 % (37-47); Hemoglobin 11.7 g/dL (12.0-15.0); Lymphocyte # 2.27 X10^3/ul (4.0); Mean Corp Hgb Conc 31.5 g/dL (32-36); Mean Corpuscular Hgb 29.3 pg (27.0-32.0); Mean Corpuscular Volume 92.8 fL (81-99); Mean Platelet Vol. 10.2 fl (6.2-12.0); Monocyte# 0.48 X10^3/uL; Monocyte% 5.5 % (0-10); NRBC Flagged by Analyzer 0 % (0-5); Neutrophil # 5.54 X10^3/uL (2.7-7.7); Neutrophil % 63.5 % (47-70); Platelet Count 468 K/mm3 (150-450); RBC Distribution Width CV 14.2 % (11.6-14.6); RBC Distribution Width SD 47.9 fl (35.1-43.9); White Blood Count 8.7 K/mm3 (4.4-11.0)
--- NOTE | 2020-02-09 15:24 | CM.ED ---
Social Work Consult: ED Care Plan - Active Informant: Self Referral Met with patient in room. Introduced self as well as social service director role. Patient is agreeable to speaking with this social service director. This social service director inquiring about patient current mental health and if patient has been able to establish mental health services. Patient stating to not be in counseling services and to be following with Isabel Arias N.P through Dr. Albert for medication. Patient stating to currently be on Zoloft. Patient stating no desire to pursue further mental health services. Patient stating no concerns with returning to the community or assess to resources. Patient stating main concern is patient Nausea and vomiting. Patient denies any substance abuse/use. Active listening and support provided. Marcela KIRKLAND, ETIENNE
[2020-02-09 15:33] LABS: ALB/GLOB Ratio 0.8 RATIO (0.9-2.4); AST(SGOT) 10 U/L (15-37); Alanine Aminotransfer ALT/SGPT 17 U/L (13-56); Albumin, Serum 3.6 g/dL (3.2-5.0); Alkaline Phosphatase 98 U/L (45-117); Anion Gap 8 (5-15); BUN 10 mg/dL (7-18); BUN/Creat Ratio 10.4 RATIO (10-20); Calcium,Total 9.2 mg/dL (8.5-10.1); Chloride 105 mmol/L (98-107); Creatinine, Serum 0.97 mg/dL (0.55-1.02); EST Glomerular Filtration Rate 68 mL/min (>60); Est Glom Filt Rate - Afr Amer 82 mL/min (>60); Estimated Creatinine Clearance 58.18 ml/min; Globulin 4.6 g/dL (2.2-4.2); Glucose 132 mg/dL (74-106); Lipase 1075 U/L (73-393); Potassium 3.4 mmol/L (3.5-5.1); Protein, Total 8.2 g/dL (6.4-8.2); Sodium Level 138 mmol/L (136-145)
--- NOTE | 2020-02-09 15:49 | NURSING ---
DR CHOUDHURY FOR DR RENNER
[2020-02-09] MEDS: HYDROmorphone 1 MG/ML Syringe IV (15:58)
--- NOTE | 2020-02-09 16:00 | NURSING ---
MED SURG ABD PAIN, PANCREATITIS KEI
[2020-02-09 16:05] VITALS: BP 114/64; PULSE 90; RESP 17; TEMP 36.6; O2SAT 98
[2020-02-09 16:32] VITALS: BP 104/61; PULSE 77; RESP 16; TEMP 36.6; O2SAT 100; BMI 35.9
[2020-02-09 16:38] LABS: Triglycerides 165 mg/dL
[2020-02-09] MEDS: 0.9% Normal Saline 1,000 ML 150 ML IV ×2 (16:53→22:03)
--- NOTE | 2020-02-09 17:32 | PCM.HP.STD ---
History of Present Illness Date of Admission: 02/09/20 Chief Complaint: Abdominal pain The patient is a 39 year old F with a PMH as below who presents with abdominal pain. She says that she was discharged on Thursday after having a bout of pancreatitis and was feeling pretty well. She was tolerating a bland diet and today she just did not feel very well, and had some nausea so she just had some chicken broth she did develop some abdominal pain but not as bad as her initial admission for pancreatitis. She says it the pain does radiate to her back. In the ER she had a lipase of little over a thousand which is lower than what it was on her initial admission when it peaked 4600. She is status post cholecystectomy in the 90s, and she denies any drinking. Triglycerides were checked in the ER and 168, during her last admission it was felt that possibly Seroquel or Zoloft causing her for pancreatitis and therefore her Seroquel was discontinued. Past Medical History Past Medical History (Chronic Problems): Chronic Problems (Last Reviewed 12/14/19 @ 10:[address] Jay Cueto MD) Anxiety (Chronic) Bipolar disorder (Chronic) PUD (peptic ulcer disease) (Chronic) according to pt Syncope (Chronic) Chest pain (Chronic) Dyspnea (Chronic) Incomplete right bundle branch block (Chronic) Hyperlipidemia (Chronic) Lung nodule (Chronic) History of uterine cancer (Chronic 2006) Medical History: Medical History (Last Reviewed 12/14/19 @ 10:[address] Jay Cueto MD) Incomplete right bundle branch block (Chronic) I45.10 Hyperlipidemia (Chronic) E78.5 Lung nodule (Chronic) R91.1 History of uterine cancer (Chronic) Onset Date: 2006 Z85.42 Chronic pain G89.29 History of renal calculi Z87.442 Migraine G43.909 Obesity E66.9 Ovarian cyst N83.209 Right tubo-ovarian mass N83.8 Ureteral stone with hydronephrosis N13.2 Allergies ketorolac tromethamine [From Toradol] Allergy (Verified 02/09/20 14:08) Rash metronidazole [From Flagyl] Allergy (Verified 02/09/20 14:08) Hives Penicillins Allergy (Verified 02/09/20 14:08) Hives promethazine HCl [From Phenergan] Allergy (Verified 02/09/20 14:08) Hives aspirin Adverse Reaction (Verified 02/09/20 14:08) Upset Stomach CT DYE Allergy (Uncoded 02/09/20 14:08) Anaphylaxis IV contrast Allergy (Uncoded 02/09/20 14:08) Anaphylaxis Home Medications: Ambulatory Orders Medication Instructions Recorded prazosin 1 mg capsule 1 mg PO QHS 12/14/19 Ondansetron HCl [Zofran] 4 mg PO Q8H PRN PRN #20 tab 02/05/20 Oxycodone [Oxyir] 10 mg PO Q4H PRN PRN 5 Days #60 tab 02/05/20 Pantoprazole Sodium [Protonix] 20 mg PO BID #60 tab 02/05/20 Sertraline HCl [Zoloft] 50 mg PO DAILY 02/09/20 Surgical History: Surgical History (Last Reviewed 12/14/19 @ 10:[address] Jay Cueto MD) H/O ovarian cystectomy Onset Date: 09/2019 Z98.890, Z87.42 History of bilateral oophorectomy Z90.722 2013, 2016 History of hysterectomy Z90.710 History of tubal ligation Z98.51 Surgical History: cholecystectomy, hysterectomy, - - Oophorectomy [employer] History: cervical cancer, ovarian cancer, ovarian cysts Smoking Status: Never smoker Alcohol: None Drugs: None - *Family History Maternal Family History: Family History (Last Reviewed 02/01/20 @ 18:39 by CHAZ Henry) Aunt Breast cancer Grandfather CAD (coronary artery disease) Father Heart disease, Onset Age: 73 Mother Heart disease, Onset Age: 62 Other Diabetes Review of Systems Constitutional: Denies: Chills, Fever, Weight Change HEENT: Denies: Head Aches, Sinus Congestion, Sinus Drainage Cardiovascular: Denies: Chest Pain, Palpitations Respiratory: Denies: Cough, Shortness of breath at rest, Sputum production Gastrointestinal: Reports: Abdominal Pain, Nausea, Vomiting Genitourinary: Denies: Dysuria Musculoskeletal: Denies: Joint Pain, Joint Tenderness Skin: Denies: Rash, Wounds Neurological: Denies: Numbness, Tingling, Focal weakness Psychiatric: Denies: Anxiety, Depression Hematologic/ Lymphatic: Denies: Easy Bruising, Easy Bleeding VTE Information - Inpt Only VTE Present on Admission: No - Physical Exam Vitals/I&O's: Vital Signs Temp Pulse Resp BP Pulse Ox 97.9 F 77 16 104/61 100 02/09/20 16:32 02/09/20 16:32 02/09/20 16:32 02/09/20 16:32 02/09/20 16:32 Oxygen Delivery Method Room Air Weight: 189 lb 13.088 oz Body Mass Index (BMI) 35.9 Intake and Output for Last 24 Hours 02/07/20 02/08/20 02/09/20 23:59 23:59 23:59 Intake Total 1000 / 999 Balance 1000 / 999 General: Alert, Oriented x3, Cooperative, No apparent distress HEENT: Atraumatic, PERRLA, EOMI, Normocephalic Oral: Dry Mucosa Neck: Supple, No JVD Lungs: Clear to auscultation, Normal air movement, No rhonchi, No wheeze, No rales Cardiovascular: Regular rate, Regular Rhythm, Normal S1, Normal S2, No murmurs Abdomen: Soft, Non-Distended, No Hepato-splenomegaly, Obese, Tender - Epigastric Extremities: No edema, Capillary Refill Less than 3 Seconds Skin: No rashes, No breakdown Neurological: Neuro grossly intact, Sensory exam intact to light touch and pain Psych/Mental Status: Normal Affect, Appropriate Laboratory Results 02/09/20 14:25: WBC 8.7, RBC 4.00 L, Hgb 11.7 L, Hct 37.1, MCV 92.8, MCH 29.3, MCHC 31.5 L, RDW Std Deviation 47.9 H, RDW Coeff of Shun 14.2, Plt Count 468 H, MPV 10.2, Immature Gran % (Auto) 0.600, Neut % (Auto) 63.5, Lymph % (Auto) 26.0, [place] % (Auto) 5.5, Eos % (Auto) 3.9, Baso % (Auto) 0.5, Absolute Neuts (auto) 5.5, Absolute Lymphs (auto) 2.27, Nucleated RBC % 0 02/09/20 14:25: Sodium 138, Potassium 3.4 L, Chloride 105, Carbon Dioxide 25.0, Anion Gap 8, BUN 10, Creatinine 0.97, Estim Creat Clear Calc 58.18, Est GFR (MDRD) Af Amer 82, Est GFR (MDRD) Non-Af 68, BUN/Creatinine Ratio 10.4, Glucose 132 H, Calcium 9.2, Total Bilirubin 0.30, AST 10 L, ALT 17, Alkaline Phosphatase 98, Total Protein 8.2, Albumin 3.6, Globulin 4.6 H, Albumin/Globulin Ratio 0.8 L, Lipase 1075 H 02/09/20 14:25: Triglycerides 165 Current Medications Acetaminophen (Tylenol) 650 mg PO Q6H PRN PRN PRN Reason: Pain Score 1-10/Temp > 100.7 F Enoxaparin Sodium (Lovenox) 40 mg SC DAILY [facility] Sodium Chloride () 1,000 mls @ 150 mls/hr IV .[id number] KERI Last Admin: 02/09/20 16:53 Dose: 150 mls/hr Documented by: Sodium Chloride () 250 mls @ 15 mls/hr IV .[id number] PRN PRN Reason: Saline Flush Sodium Chloride () 250 mls @ 15 mls/hr IV .[id number] PRN PRN Reason: Additional IVPB Infusion Melatonin (Melatonin) 3 mg PO QHS PRN PRN PRN Reason: INSOMNIA Morphine Sulfate () 4 mg IV Q3H PRN PRN PRN Reason: Pain Score 6-10/10 Ondansetron HCl (Zofran) 4 mg IV Q8H PRN PRN PRN Reason: NAUSEA/VOMITING Sodium Chloride () 10 - 40 ml IV UD PRN PRN Reason: SALINE FLUSH Assessment/Plan All Active Problems (Last Reviewed 12/14/19 @ 10:[address] Jay Cueto MD) Acute pancreatitis (Acute) Right flank pain (Resolved) 1. Acute pancreatitis -Lipase level over thousand, liver function tests were normal -Continue with IV fluids, n.p.o. -Normal triglycerides, she denies being alcoholic, history of cholecystectomy 1989, pancreatitis could potentially be due to the medications -We will continue to monitor and potentially restart her diet in the morning 2. Anxiety/depression/chronic pain symptoms/chronic insomnia -She was recently taken off of Seroquel because of her pancreatitis -We will continue with Zoloft for now -She denies any chronic narcotic use for her pain syndrome though this will make treating her pain for pancreatitis more complicated -Continue with prazosin for her insomnia 3. History of uterine cancer -Outpatient follow-up, she is status post hysterectomy 4. GERD -Stable -Continue with PPI DVT: Lovenox Inpatient E&M: 45018 Init Hosp L2
[2020-02-09] MEDS: Morphine 4 MG/ML Syringe IV ×2 (19:04→22:04)
[2020-02-09] MEDS: Acetaminophen 325 MG Tablet 650 MG PO (21:21)
[2020-02-09] MEDS: Pantoprazole Sodium 20 MG Tablet PO (21:21)
[2020-02-09] MEDS: MELATONIN 3 MG TABLET PO (21:21)
[2020-02-09] MEDS: Doxazosin 1 MG Tablet PO (21:21)
[2020-02-09 21:27] VITALS: BP 106/56; PULSE 78; RESP 18; TEMP 37.1; O2SAT 94
[2020-02-10] MEDS: Morphine 4 MG/ML Syringe IV ×3 (03:07→09:10)
[2020-02-10 03:14] VITALS: BP 113/65; PULSE 79; RESP 18; TEMP 36.9; O2SAT 96
[2020-02-10] MEDS: 0.9% Normal Saline 1,000 ML 150 ML IV (05:01)
[2020-02-10 05:55] LABS: Absolute Lymphocyte Count 2.44 X10^3/uL (0.83-4.51); Absolute Neutrophil Count 3.1 X10^3/uL (2.0-7.7); Basophil# 0.04 X10^3/uL; Basophil% 0.6 % (0-1); Eosinophil# 0.35 X10^3/uL; Eosinophils% 5.4 % (0-5); Hematocrit 32.7 % (37-47); Hemoglobin 10.2 g/dL (12.0-15.0); Lymphocyte # 2.44 X10^3/ul (4.0); Lymphocyte % 37.9 % (19-41); Mean Corp Hgb Conc 31.2 g/dL (32-36); Mean Corpuscular Hgb 29.9 pg (27.0-32.0); Mean Corpuscular Volume 95.9 fL (81-99); Mean Platelet Vol. 9.9 fl (6.2-12.0); Monocyte# 0.46 X10^3/uL; Monocyte% 7.2 % (0-10); NRBC Flagged by Analyzer 0 % (0-5); Neutrophil % 48.3 % (47-70); Platelet Count 309 K/mm3 (150-450); RBC Distribution Width CV 14.3 % (11.6-14.6); RBC Distribution Width SD 50.7 fl (35.1-43.9); Red Blood Count 3.41 M/mm3 (4.2-5.4); White Blood Count 6.4 K/mm3 (4.4-11.0)
[2020-02-10 06:13] LABS: Anion Gap 4 (5-15); BUN 7 mg/dL (7-18); BUN/Creat Ratio 8.9 RATIO (10-20); Calcium,Total 8.2 mg/dL (8.5-10.1); Chloride 109 mmol/L (98-107); Creatinine, Serum 0.78 mg/dL (0.55-1.02); EST Glomerular Filtration Rate 86 mL/min (>60); Est Glom Filt Rate - Afr Amer 105 mL/min (>60); Estimated Creatinine Clearance 72.35 ml/min; Glucose 96 mg/dL (74-106); Potassium 3.3 mmol/L (3.5-5.1); Sodium Level 140 mmol/L (136-145)
[2020-02-10 08:45] VITALS: BP 103/60; PULSE 75; RESP 14; TEMP 36.4; O2SAT 95
[2020-02-10] MEDS: Potassium Chloride 10mEq/100mL 10 MEQ/100 ML IV.SOLN. 100 MEQ IV BOLUS ×3 (08:49→12:22)
[2020-02-10] MEDS: Pantoprazole Sodium 20 MG Tablet PO ×2 (08:53→21:38)
[2020-02-10] MEDS: Sertraline 50 MG Tablet PO (08:53)
--- NOTE | 2020-02-10 09:09 | CASEMGMT ---
VIN XAVIER Re-admission note: Previous Admission: Admitted 02/04/20 w/abdominal pain/Acute Pancreatitis. N/V thought to be possibly secondary to recent addition of Seroquel and Sertraline. Pt able to tolerate transition to full liquid and improvement of abdominal pain. Discharged Home 02/05/20. Seroquel and Sertraline discontinued and recommended pt early follow-up w/psychiatry and to f/u w/PCP and dentist (d/t recent dental infection). Re-admission: Re-admitted 02/09/20 w/Pancreatitis. Presentation: N/V, unable to keep liquids down, abdominal pain. VIN XAVIER to room to talk w/pt. She states she did have a follow up phone appt w/Isabel WARE on Thursday, but does not think she has any further appt's scheduled with her or w/Dr Albert. She also states that the appt w/her psychiatrist had to be rescheduled, but I don't remember when. She denies having any questions or concerns re: medications and states was taking them as prescribed since discharge. She denies any needs @ d/c. Pt made aware to ask for CM if she has any concerns/needs re: discharge home. Pt voices understanding. Brendan ROSA RN, CM
--- NOTE | 2020-02-10 10:21 | PCM.PN.HOSP ---
Subjective: Feeling better, pain is improved. No issues overnight. Morphine helps but she is getting it every 3 hours. Vitals/I&O's: Vital Signs Temp Pulse Resp BP Pulse Ox 97.6 F L 75 14 103/60 95 02/10/20 08:45 02/10/20 08:45 02/10/20 08:45 02/10/20 08:45 02/10/20 08:45 Oxygen Delivery Method Room Air Weight: 189 lb 13.088 oz Body Mass Index (BMI) 35.9 Intake and Output for Last 24 Hours 02/08/20 02/09/20 02/10/20 23:59 23:59 23:59 Intake Total 1775 / 1775 1693.50 / 1693.50 Balance 1775 / 1775 1693.50 / 1693.50 General: Alert, Oriented x3, Cooperative, No apparent distress HEENT: Atraumatic, PERRLA, EOMI, Normocephalic Oral: Dry Mucosa Neck: Supple, No JVD Lungs: Clear to auscultation, Normal air movement, No rhonchi, No wheeze, No rales Cardiovascular: Regular rate, Regular Rhythm, Normal S1, Normal S2, No murmurs Abdomen: Soft, Non-Distended, No Hepato-splenomegaly, Obese, Tender - Epigastric Extremities: No edema, Capillary Refill Less than 3 Seconds Skin: No rashes, No breakdown Neurological: Neuro grossly intact, Sensory exam intact to light touch and pain Psych/Mental Status: Normal Affect, Appropriate Laboratory Results 02/09/20 14:25: WBC 8.7, RBC 4.00 L, Hgb 11.7 L, Hct 37.1, MCV 92.8, MCH 29.3, MCHC 31.5 L, RDW Std Deviation 47.9 H, RDW Coeff of Shun 14.2, Plt Count 468 H, MPV 10.2, Immature Gran % (Auto) 0.600, Neut % (Auto) 63.5, Lymph % (Auto) 26.0, Haralson % (Auto) 5.5, Eos % (Auto) 3.9, Baso % (Auto) 0.5, Absolute Neuts (auto) 5.5, Absolute Lymphs (auto) 2.27, Nucleated RBC % 0 02/09/20 14:25: Sodium 138, Potassium 3.4 L, Chloride 105, Carbon Dioxide 25.0, Anion Gap 8, BUN 10, Creatinine 0.97, Estim Creat Clear Calc 58.18, Est GFR (MDRD) Af Amer 82, Est GFR (MDRD) Non-Af 68, BUN/Creatinine Ratio 10.4, Glucose 132 H, Calcium 9.2, Total Bilirubin 0.30, AST 10 L, ALT 17, Alkaline Phosphatase 98, Total Protein 8.2, Albumin 3.6, Globulin 4.6 H, Albumin/Globulin Ratio 0.8 L, Lipase 1075 H 02/09/20 14:25: Triglycerides 165 02/10/20 05:08: WBC 6.4, RBC 3.41 L, Hgb 10.2 L, Hct 32.7 L, MCV 95.9, MCH 29.9, MCHC 31.2 L, RDW Std Deviation 50.7 H, RDW Coeff of Shun 14.3, Plt Count 309, MPV 9.9, Immature Gran % (Auto) 0.600, Neut % (Auto) 48.3, Lymph % (Auto) 37.9, Haralson % (Auto) 7.2, Eos % (Auto) 5.4 H, Baso % (Auto) 0.6, Absolute Neuts (auto) 3.1, Absolute Lymphs (auto) 2.44, Nucleated RBC % 0 02/10/20 05:08: Sodium 140, Potassium 3.3 L, Chloride 109 H, Carbon Dioxide 27.0, Anion Gap 4 L, BUN 7, Creatinine 0.78, Estim Creat Clear Calc 72.35, Est GFR (MDRD) Af Amer 105, Est GFR (MDRD) Non-Af 86, BUN/Creatinine Ratio 8.9 L, Glucose 96, Calcium 8.2 L Current Medications Acetaminophen (Tylenol) 650 mg PO Q6H PRN PRN PRN Reason: Pain Score 1-10/Temp > 100.7 F Last Admin: 02/09/20 21:21 Dose: 650 mg Documented by: Doxazosin Mesylate (Cardura) 1 mg PO QHS [facility] Last Admin: 02/09/20 21:21 Dose: 1 mg Documented by: Enoxaparin Sodium (Lovenox) 40 mg SC DAILY [facility] Last Admin: 02/10/20 08:53 Dose: Not Given Documented by: Sodium Chloride () 1,000 mls @ 100 mls/hr IV .Q10H KERI Last Infusion: 02/10/20 08:56 Dose: 100 mls/hr Documented by: Sodium Chloride () 250 mls @ 15 mls/hr IV .[id number] PRN PRN Reason: Saline Flush Last Infusion: 02/10/20 10:12 Dose: 0 mls/hr Documented by: Sodium Chloride () 250 mls @ 15 mls/hr IV .[id number] PRN PRN Reason: Additional IVPB Infusion Potassium Chloride () 10 meq in 100 mls @ 100 mls/hr IV BOLUS Q1H [facility] Stop: 02/10/20 11:59 Last Admin: 02/10/20 10:12 Dose: 100 mls/hr Documented by: Melatonin (Melatonin) 3 mg PO QHS PRN PRN PRN Reason: INSOMNIA Last Admin: 02/09/20 21:21 Dose: 3 mg Documented by: Morphine Sulfate () 2 mg IV Q3H PRN PRN PRN Reason: Pain Score 6-10/10 Ondansetron HCl (Zofran) 4 mg IV Q8H PRN PRN PRN Reason: NAUSEA/VOMITING Pantoprazole Sodium (Protonix) 20 mg PO BID [facility] Last Admin: 02/10/20 08:53 Dose: 20 mg Documented by: Sertraline HCl (Zoloft) 50 mg PO DAILY [facility] Last Admin: 02/10/20 08:53 Dose: 50 mg Documented by: Sodium Chloride () 10 - 40 ml IV UD PRN PRN Reason: SALINE FLUSH STROKE Vital Signs/Narrative: Vital Signs Temp Pulse Resp BP Pulse Ox 02/10/20 08:45 97.6 F L 75 14 103/60 95 Medical Necessity - Tobacco Use Smoking Status: Never smoker Assessment/Plan All Active Problems (Last Reviewed 12/14/19 @ 10:[address] Jay Cueto MD) Acute pancreatitis (Acute) Right flank pain (Resolved) 1. Acute pancreatitis -Lipase level over thousand, liver function tests were normal -Continue with IV fluids, n.p.o. -Normal triglycerides, she denies being alcoholic, history of cholecystectomy 1989, pancreatitis could potentially be due to the medications -We will continue to monitor and potentially restart her diet in the morning 2. Anxiety/depression/chronic pain symptoms/chronic insomnia -She was recently taken off of Seroquel because of her pancreatitis -We will continue with Zoloft for now -She denies any chronic narcotic use for her pain syndrome though this will make treating her pain for pancreatitis more complicated -Continue with prazosin for her insomnia 3. History of uterine cancer -Outpatient follow-up, she is status post hysterectomy 4. GERD -Stable -Continue with PPI DVT: Lovenox Inpatient E&M: 76582 Subs Hosp L2
[2020-02-10] MEDS: DiphenhydrAMINE 50 MG/ML Syringe 25 MG IV (10:42)
--- NOTE | 2020-02-10 12:23 | CASEMGMT ---
SW checked in w/pt in regard to mental health resources. Pt declined any additional resources needed at this time. Pt confirmed has a psychiatry appt but is unsure when it is, will call to find out when the appointment will be, denied the need for SW to call for her. No further needs at this time. MELLISSA Chavez
[2020-02-10] MEDS: 0.9% Saline Lock 10 ML Syringe IV ×3 (13:19→23:23)
[2020-02-10] MEDS: Morphine 2 MG/ML Syringe IV ×4 (13:19→23:23)
[2020-02-10] MEDS: 0.9% Normal Saline 1,000 ML 100 ML IV ×2 (13:20→23:23)
[2020-02-10] MEDS: Potassium Chloride 10mEq/100mL 10 MEQ/100 ML IV.SOLN. 80 MEQ IV BOLUS (13:23)
[2020-02-10 15:45] VITALS: BP 116/64; PULSE 74; RESP 16; TEMP 36.6; O2SAT 100
[2020-02-10 19:55] VITALS: BP 110/71; PULSE 74; RESP 18; TEMP 36.9; O2SAT 100
[2020-02-10] MEDS: MELATONIN 3 MG TABLET PO (21:38)
[2020-02-10] MEDS: Acetaminophen 325 MG Tablet 650 MG PO (21:38)
[2020-02-10] MEDS: Doxazosin 1 MG Tablet PO (21:38)
[2020-02-11] MEDS: Morphine 2 MG/ML Syringe IV ×2 (02:36→05:41)
[2020-02-11] MEDS: 0.9% Saline Lock 10 ML Syringe IV ×6 (02:36→18:18)
[2020-02-11 02:37] VITALS: BP 113/73; PULSE 76; RESP 16; TEMP 36.6; O2SAT 98
[2020-02-11] MEDS: Ondansetron 4 MG/2 ML Vial IV ×2 (05:47→13:49)
[2020-02-11 07:42] LABS: Anion Gap 8 (5-15); BUN 5 mg/dL (7-18); Calcium,Total 8.4 mg/dL (8.5-10.1); Chloride 107 mmol/L (98-107); Creatinine, Serum 0.71 mg/dL (0.55-1.02); EST Glomerular Filtration Rate 97 mL/min (>60); Est Glom Filt Rate - Afr Amer 117 mL/min (>60); Estimated Creatinine Clearance 79.48 ml/min; Glucose 88 mg/dL (74-106); Magnesium 2.1 mg/dL (1.6-2.6); Potassium 3.9 mmol/L (3.5-5.1); Sodium Level 139 mmol/L (136-145)
[2020-02-11 08:35] VITALS: BP 104/64; PULSE 74; RESP 16; TEMP 36.6; O2SAT 99
[2020-02-11] MEDS: Morphine 2 MG/ML Syringe 1 MG IV ×4 (08:58→21:18)
[2020-02-11] MEDS: 0.9% Normal Saline 1,000 ML 100 ML IV ×2 (08:59→18:19)
[2020-02-11] MEDS: Sertraline 50 MG Tablet PO (09:00)
[2020-02-11] MEDS: Pantoprazole Sodium 20 MG Tablet PO ×2 (09:00→21:17)
--- NOTE | 2020-02-11 09:08 | NURSING ---
Addendum entered by Shahrzad Edge 02/11/20 09:09: multiple scabbed areas to bilateral arms Original Note: pt calling out the exact minute morphine can be given. non verbal pain scale is not matching verbal
--- NOTE | 2020-02-11 09:38 | PN_ITS ---
Subjective: Pain is improving somewhat, she would like to try a little bit of a diet today Vitals/I&O's: Vital Signs Temp Pulse Resp BP Pulse Ox 97.9 F 74 16 104/64 99 02/11/20 08:35 02/11/20 08:35 02/11/20 08:35 02/11/20 08:35 02/11/20 08:35 Oxygen Delivery Method Room Air Weight: 189 lb 13.088 oz Body Mass Index (BMI) 35.9 Intake and Output for Last 24 Hours 02/09/20 02/10/20 02/11/20 23:59 23:59 23:59 Intake Total 1775 / 1775 3601.25 / 3601.25 986.67 / 986.67 Output Total 1300 / 1300 Balance 1775 / 1775 3601.25 / 3601.25 -313.33 / -313.33 General: Alert, Oriented x3, Cooperative, No apparent distress HEENT: Atraumatic, PERRLA, EOMI, Normocephalic Oral: Dry Mucosa Neck: Supple, No JVD Lungs: Clear to auscultation, Normal air movement, No rhonchi, No wheeze, No rales Cardiovascular: Regular rate, Regular Rhythm, Normal S1, Normal S2, No murmurs Abdomen: Soft, Non-Distended, No Hepato-splenomegaly, Obese, Tender - Epigastric mild Extremities: No edema, Capillary Refill Less than 3 Seconds Skin: No rashes, No breakdown Neurological: Neuro grossly intact, Sensory exam intact to light touch and pain Psych/Mental Status: Normal Affect, Appropriate Laboratory Results 02/11/20 06:25: Sodium 139, Potassium 3.9, Chloride 107, Carbon Dioxide 24.0, Anion Gap 8, BUN 5 L, Creatinine 0.71, Estim Creat Clear Calc 79.48, Est GFR (MDRD) Af Amer 117, Est GFR (MDRD) Non-Af 97, BUN/Creatinine Ratio 7.0 L, Glucose 88, Calcium 8.4 L, Magnesium 2.1 Current Medications Acetaminophen (Tylenol) 650 mg PO Q6H PRN PRN PRN Reason: Pain Score 1-10/Temp > 100.7 F Last Admin: 02/10/20 21:38 Dose: 650 mg Documented by: Doxazosin Mesylate (Cardura) 1 mg PO QHS [facility] Last Admin: 02/10/20 21:38 Dose: 1 mg Documented by: Enoxaparin Sodium (Lovenox) 40 mg SC DAILY [facility] Last Admin: 02/11/20 08:59 Dose: Not Given Documented by: Sodium Chloride () 1,000 mls @ 100 mls/hr IV .Q10H KERI Last Admin: 02/11/20 08:59 Dose: 100 mls/hr Documented by: Sodium Chloride () 250 mls @ 15 mls/hr IV .[id number] PRN PRN Reason: Saline Flush Last Infusion: 02/10/20 16:19 Dose: 0 mls/hr Documented by: Sodium Chloride () 250 mls @ 15 mls/hr IV .[id number] PRN PRN Reason: Additional IVPB Infusion Melatonin (Melatonin) 3 mg PO QHS PRN PRN PRN Reason: INSOMNIA Last Admin: 02/10/20 21:38 Dose: 3 mg Documented by: Morphine Sulfate () 1 mg IV Q3H PRN PRN Reason: pain 6-1010 Last Admin: 02/11/20 08:58 Dose: 1 mg Documented by: Ondansetron HCl (Zofran) 4 mg IV Q8H PRN PRN PRN Reason: NAUSEA/VOMITING Last Admin: 02/11/20 05:47 Dose: 4 mg Documented by: Pantoprazole Sodium (Protonix) 20 mg PO BID [facility] Last Admin: 02/11/20 09:00 Dose: 20 mg Documented by: Sertraline HCl (Zoloft) 50 mg PO DAILY [facility] Last Admin: 02/11/20 09:00 Dose: 50 mg Documented by: Sodium Chloride () 10 - 40 ml IV UD PRN PRN Reason: SALINE FLUSH Last Admin: 02/11/20 08:58 Dose: 10 ml Documented by: STROKE Vital Signs/Narrative: Vital Signs Temp Pulse Resp BP Pulse Ox 02/11/20 08:35 97.9 F 74 16 104/64 99 Medical Necessity - Tobacco Use Smoking Status: Never smoker Assessment/Plan All Active Problems (Last Reviewed 12/14/19 @ 10:[address] Jay Cueto MD) Acute pancreatitis (Acute) Right flank pain (Resolved) 1. Acute pancreatitis -Lipase level over thousand, liver function tests were normal -Continue with IV fluids, will start her on a full liquid diet and plan to advance to regular diet tomorrow if she continues to improve -Normal triglycerides, she denies being alcoholic, history of cholecystectomy 1989, pancreatitis could potentially be due to the medications, given the possibility of bipolar disorder I did ask her that she call her psychiatrist on Thursday and be started on a different antidepressant as the Zoloft could be causing this too. -We will continue to monitor and potentially restart her diet in the morning 2. Anxiety/depression/chronic pain symptoms/chronic insomnia -She was recently taken off of Seroquel because of her pancreatitis -We will continue with Zoloft for now -She denies any chronic narcotic use for her pain syndrome though this will make treating her pain for pancreatitis more complicated -Continue with prazosin for her insomnia 3. History of uterine cancer -Outpatient follow-up, she is status post hysterectomy 4. GERD -Stable -Continue with PPI DVT: Lovenox Inpatient E&M: 68897 Subs Hosp L2
[2020-02-11 13:54] VITALS: BP 111/58; PULSE 76; RESP 16; TEMP 36.8; O2SAT 98
[2020-02-11 21:08] VITALS: BP 111/70; PULSE 74; RESP 16; TEMP 37.1; O2SAT 98
[2020-02-11] MEDS: MELATONIN 3 MG TABLET PO (21:17)
[2020-02-11] MEDS: Doxazosin 1 MG Tablet PO (21:17)
[2020-02-11 21:30] VITALS: PULSE 74; RESP 16; O2SAT 98
[2020-02-12 03:02] VITALS: BP 107/64; PULSE 75; RESP 16; TEMP 36.6; O2SAT 94
[2020-02-12] MEDS: Morphine 2 MG/ML Syringe 1 MG IV ×3 (03:06→13:40)
[2020-02-12] MEDS: 0.9% Normal Saline 1,000 ML 100 ML IV (04:26)
[2020-02-12 09:00] VITALS: BP 121/76; PULSE 81; RESP 16; TEMP 36.6; O2SAT 97
[2020-02-12] MEDS: Sertraline 50 MG Tablet PO (09:12)
[2020-02-12] MEDS: Pantoprazole Sodium 20 MG Tablet PO (09:12)
[2020-02-12] MEDS: Ondansetron 4 MG/2 ML Vial IV (09:59)
--- NOTE | 2020-02-12 11:27 | DCINST_ITS ---
You will use the following diet at home:: Other - Low fat diet Your food should be the consistency of: Regular Your liquids should be the consistency of: Regular/Thin Discharge Activity: Return to Normal Activity Call your doctor if you observe: Fever of 101 or Higher, Shortness of breath, Dizziness, Fainting spells, Swelling in the ankles, Chest pain, Increased palpitations (irregular heartbeat) Allergies/Adverse Reactions: Allergies ketorolac tromethamine [From Toradol] Allergy (Verified 02/09/20 14:08) Rash metronidazole [From Flagyl] Allergy (Verified 02/09/20 14:08) Hives Penicillins Allergy (Verified 02/09/20 14:08) Hives promethazine HCl [From Phenergan] Allergy (Verified 02/09/20 14:08) Hives aspirin Adverse Reaction (Verified 02/09/20 14:08) Upset Stomach CT DYE Allergy (Uncoded 02/09/20 14:08) Anaphylaxis IV contrast Allergy (Uncoded 02/09/20 14:08) Anaphylaxis Medications to take at Discharge prazosin 1 mg capsule 1 mg PO QHS 12/14/19 Ondansetron HCl [Zofran] 4 mg PO Q8H PRN PRN #20 tab 02/05/20 Oxycodone [Oxyir] 10 mg PO Q4H PRN PRN 5 Days #60 tab 02/05/20 Pantoprazole Sodium [Protonix] 20 mg PO BID #60 tab 02/05/20 Sertraline HCl [Zoloft] 50 mg PO DAILY 02/09/20 Primary Care Physician: Isabel Arias PA [Primary Care Provider] - Please follow up with your Primary Care Physician in: 3-5 days Test Results: Test results from this visit will be discussed in further detail at your follow- up appointment, if applicable. Please Follow Up With: Gastroenterology
--- NOTE | 2020-02-12 12:56 | PCM.DC.SUM ---
Discharge Date and Diagnosis Date of Admission: 02/09/20 Date of Discharge: 02/12/20 - Secondary Discharge Diagnosis Chronic Problems: Chronic Problems (Last Reviewed 12/14/19 @ 10:[address] Jay Cueto MD) Anxiety (Chronic) Bipolar disorder (Chronic) PUD (peptic ulcer disease) (Chronic) according to pt Syncope (Chronic) Chest pain (Chronic) Dyspnea (Chronic) Incomplete right bundle branch block (Chronic) Hyperlipidemia (Chronic) Lung nodule (Chronic) History of uterine cancer (Chronic 2006) Hospital Course and Treatment Imaging Results: None Consults: None Operations: None Procedures: None Summary of Care Provided: Per HPI: The patient is a 39 year old F with a PMH as below who presents with abdominal pain. She says that she was discharged on Thursday after having a bout of pancreatitis and was feeling pretty well. She was tolerating a bland diet and today she just did not feel very well, and had some nausea so she just had some chicken broth she did develop some abdominal pain but not as bad as her initial admission for pancreatitis. She says it the pain does radiate to her back. In the ER she had a lipase of little over a thousand which is lower than what it was on her initial admission when it peaked 4600. She is status post cholecystectomy in the 90s, and she denies any drinking. Triglycerides were checked in the ER and 168, during her last admission it was felt that possibly Seroquel or Zoloft causing her for pancreatitis and therefore her Seroquel was discontinued. Hospital Course: 1. Acute recurrent [id number] female with a history of uterine cancer, and chronic pain presents with abdominal pain that was radiating to her back. She was recently admitted and discharged for pancreatitis at that time her Seroquel was discontinued. She says that she had been doing well and then presents back with more abdominal pain. She improved very quickly and was started on a full liquid diet yesterday which she tolerated, though she did have some intermittent nausea. She was advanced to a regular diet as well on the day of discharge and did okay. Her pain improved significantly and she was weaned down on her morphine very quickly. She states that she does not need any more narcotics at home since she had the previous prescription from the previous admission. She also has Zofran at home as well. I did discuss with her that prior to taking her off her Zoloft given her history of anxiety and depression and possible bipolar diagnosis, that she needs to speak with her psychiatrist and be started on a new medication before being off of all of her per old medications. Triglycerides were checked and were normal, and she does not have a gallbladder therefore this could be medication induced or could be autoimmune and for that reason she needs to follow-up with a compounding and finishing supervisor as an outpatient. She should follow-up with her PCP in 3 to 5 days. Plan for discharge were discussed with her and she expressed understanding of the risks and benefits of going home today. 2. Her other medical diagnoses were evaluated and her home medications were continued where appropriate - Physical Exam Vitals/I&O's: Vital Signs Temp Pulse Resp BP Pulse Ox 97.8 F 81 16 121/76 H 97 02/12/20 09:00 02/12/20 09:00 02/12/20 09:00 02/12/20 09:00 02/12/20 09:00 Oxygen Delivery Method Room Air Weight: 189 lb 13.088 oz Body Mass Index (BMI) 35.9 Intake and Output for Last 24 Hours 02/10/20 02/11/20 02/12/20 23:59 23:59 23:59 Intake Total 3601.25 / 3601.25 2520.00 / 2570.00 1250 / 1250 Output Total 1300 / 1300 Balance 3601.25 / 3601.25 1220.00 / 1270.00 1250 / 1250 General: Alert, Oriented x3, Cooperative, No apparent distress HEENT: Atraumatic, PERRLA, EOMI, Normocephalic Oral: Dry Mucosa Neck: Supple, No JVD Lungs: Clear to auscultation, Normal air movement, No rhonchi, No wheeze, No rales Cardiovascular: Regular rate, Regular Rhythm, Normal S1, Normal S2, No murmurs Abdomen: Soft, Non-Distended, No Hepato-splenomegaly, Obese, Tender - Epigastric mild Extremities: No edema, Capillary Refill Less than 3 Seconds Skin: No rashes, No breakdown Neurological: Neuro grossly intact, Sensory exam intact to light touch and pain Psych/Mental Status: Normal Affect, Appropriate Current Medications Acetaminophen (Tylenol) 650 mg PO Q6H PRN PRN PRN Reason: Pain Score 1-10/Temp > 100.7 F Last Admin: 02/10/20 21:38 Dose: 650 mg Documented by: Doxazosin Mesylate (Cardura) 1 mg PO QHS [facility] Last Admin: 02/11/20 21:17 Dose: 1 mg Documented by: Enoxaparin Sodium (Lovenox) 40 mg SC DAILY [facility] Last Admin: 02/12/20 09:13 Dose: Not Given Documented by: Sodium Chloride () 1,000 mls @ 100 mls/hr IV .Q10H [facility] Last Admin: 02/12/20 04:26 Dose: 100 mls/hr Documented by: Sodium Chloride () 250 mls @ 15 mls/hr IV .[id number] PRN PRN Reason: Saline Flush Last Infusion: 02/10/20 16:19 Dose: 0 mls/hr Documented by: Sodium Chloride () 250 mls @ 15 mls/hr IV .[id number] PRN PRN Reason: Additional IVPB Infusion Melatonin (Melatonin) 3 mg PO QHS PRN PRN PRN Reason: INSOMNIA Last Admin: 02/11/20 21:17 Dose: 3 mg Documented by: Morphine Sulfate () 1 mg IV Q3H PRN PRN Reason: pain 6-10/10 Last Admin: 02/12/20 09:12 Dose: 1 mg Documented by: Ondansetron HCl (Zofran) 4 mg IV Q8H PRN PRN PRN Reason: NAUSEA/VOMITING Last Admin: 02/12/20 09:59 Dose: 4 mg Documented by: Pantoprazole Sodium (Protonix) 20 mg PO BID [facility] Last Admin: 02/12/20 09:12 Dose: 20 mg Documented by: Sertraline HCl (Zoloft) 50 mg PO DAILY [facility] Last Admin: 02/12/20 09:12 Dose: 50 mg Documented by: Sodium Chloride () 10 - 40 ml IV UD PRN PRN Reason: SALINE FLUSH Last Admin: 02/11/20 18:18 Dose: 10 ml Documented by: Discharge Activity: Return to Normal Activity Call your doctor if you observe: Fever of 101 or Higher, Shortness of breath, Dizziness, Fainting spells, Swelling in the ankles, Chest pain, Increased palpitations (irregular heartbeat) Home Medications: Medications to take at Discharge prazosin 1 mg capsule 1 mg PO QHS 12/14/19 Ondansetron HCl [Zofran] 4 mg PO Q8H PRN PRN #20 tab 02/05/20 Oxycodone [Oxyir] 10 mg PO Q4H PRN PRN 5 Days #60 tab 02/05/20 Pantoprazole Sodium [Protonix] 20 mg PO BID #60 tab 02/05/20 Sertraline HCl [Zoloft] 50 mg PO DAILY 02/09/20 Primary Care Physician: Isabel Arias PA [Primary Care Provider] - Please follow up with your Primary Care Physician in: 3-5 days Please Follow Up With: Gastroenterology Disposition: Home Minutes spent on discharge:: 35 Patient Condition:: Stable Medical Necessity - Tobacco Use Smoking Status: Never smoker Meaningful Use Info Meaningful Use Diagnoses (Choose all that apply): None applicable Inpatient E&M: 22664 Disch Hosp
[2020-02-12 13:55] VITALS: BP 120/75; PULSE 81; RESP 16; TEMP 36.9; O2SAT 98
--- NOTE | 2020-02-13 12:05 | CASEMGMT ---
VIN DC PHONE CALL DC DATE: 02.12.2020 DC DISPOSITION: Home DC DIAGNOSIS: Pancreatitis. Abd pain, LACE/STRATA: 15/ F/U APPTS MADE PRIOR TO DC: No Attempted call to pt's phone. Message machine had name identifier, but stated messages were full. Antony ROSA RN ACM
--- OUTSIDE RECORDS SUMMARY | 2020-06-26 18:47 | XMS RPT_ITS | CCD ---
:1980 External Reference #:[id number] Author Organization [facility] Care Team Providers Name Role Phone Hanna Mejia Primary Care Provider Hanna Mejia Unavailable JEAN, E Admitting Unavailable JEANShiva RICE Attending Unavailable MD ROOSEVELT Referring Unavailable Shiva LORD Primary Care Unavailable CHAZ ARIAS Consulting Unavailable PROVIDER Consulting Unavailable MD JENNIFER Admitting Unavailable MD JENNIFER Attending Unavailable MD JENNIFER Primary Care Unavailable CHAZ RAIAS Consulting Unavailable CHAZ ARIAS Referring Unavailable PROVIDER [...] Cephalexin Itching 10-20-2019 - [facility] ([id number]) Chlorhexidine Rash 10-29-2016 - [facility] (83916) CONTRAST MEDIA, Moderate Mello Pomeren e IODINE RELATED ([facility]) Repository (Qualifier Value) Ibuprofen GI Upset Low 06-18-2016 - [facility] (18329) Ibuprofen Moderate [facility] ([facility]) Repository (Qualifier Value) Iodine Shortness of Breath Low 05-17-2008 - [facility] (32422) Ketorolac Moderate [facility] ([facility]) Repository (Qualifier Value) Ketorolac Rash 05-25-2020 - [facility] (30009) metroNIDAZOLE Moderate [facility] ([facility]) Repository (Qualifier Value) Penicillins Rash Mod[facility]413[facility] Penicillins Moderate [facility] ([facility]) Repository (Qualifier Value) predniSONE Other: See Comments Low [facility] (39091) Promethazine Moderate [facility] ([facility]) Repository (Qualifier Value) Salicylic Acid Other: See Comments Low 01-27-2011 - [facility] (78334) traMADol Rash 05-25-2020 - [facility] (49184) Medications Medication Name Sig Date Prescriber Location Albuterol albuterol HFA (VENTOLIN [facility] Provider [facility] (32460) HFA) 90 mcg/actuation inhaler Inhale 2 Puffs as instructed every 4 hours as needed. 0 Active Comment: Inhale 2 Puffs as instructed every 4 hours as needed. Bifidobacterium Bifidobacterium 04-26-2020 - Johnny [facility] Inf[facility] Infantis (ALIGN) 4 mg 07-25-2020 [facility] (75887) cap Take 1 capsule by mouth once daily. 30 capsule 2 04/26/2020 07/25/2020 Active Comment: Take 1 capsule by mouth once daily. Clindamycin clindamycin (CLEOCIN) 06-15-2020 - Jonh (Res) [facility] 300 mg capsule 06-26-2020 Chad (87767) Indications: Incisional infection Take 1 capsule by mouth four times daily for 5 days. 20 capsule 0 06/21/2020 06/26/2020 Active Comment: Take 1 capsule by mouth four times daily for 5 days. diazePAM diazePAM (VALIUM) 5 mg 06-05-2020 - [facility] tablet Indications: 06-07-2020 Mala [facility] (18126) Pancreatic cyst Take 1 tablet by mouth once daily for 2 days. 2 tablet 0 06/05/2020 06/07/2020 Active Comment: Take 1 tablet by mouth once daily for 2 days. Dicyclomine dicyclomine (BENTYL) 04-26-2020 - Johnny Mccall [facility] 10 mg capsule Take 1 05-24-2020 [facility] (95252) capsule by mouth before meals and at bedtime. Use as directed 90 capsule 1 04/26/2020 05/24/2020 Discontinued Comment: Take 1 capsule by mouth befo re meals and at bedtime. Use as directed diphenhydrAMINE diphenhydrAMINE (BENADRYL) 03-29-2019 [facility] Provide r [facility] 25 mg capsule Take 50 mg (44 195) by mouth every 6 hours as needed. 0 03/29/2019 Active Comment: Take 50 mg by mouth every 6 hours as needed. Docusate docusate sodium 06-21-2020 Jonh (Res) [facility] (COLACE) 100 mg capsule Bertke (441 95) Take 1 capsule by mouth twice daily. 60 capsule 0 06/21/2020 Active Comment: Take 1 capsule by mouth twic e daily. Estradiol estradiol (ESTRACE) 2 mg 03-23-2020 [facility] Provider [facility] (58602) tablet Take 2 mg by mouth once daily. 0 03/23/2020 Active Comment: Take 2 mg by mouth once kehinde y. HYDROmorphone HYDROmorphone 06-12-2020 - Mala Almendarez [facility] nghia (HYDROMORPHONE) 2 mg 06-19-2020 (78439) tablet Indications: Post-op pain Take 1 tablet by mouth every 3 hours as needed for Pain for up to 7 days. 40 tablet 0 06/12/2020 06/19/2020 Active Comment: Take 1 tablet by mouth every 3 hours as needed for Pain for up to 7 days. Hyoscyamine hyoscyamine (LEVSIN) 05-24-2020 Johnny Mccall [facility] 0.125 mg tablet Take 1 [facility] (4419 5) tablet by mouth every 6 hours as needed. 60 tablet 1 05/24/2020 Active Comment: Take 1 tablet by mouth every 6 hours as needed. iv contrast (will iv contrast (will be 06-05-2020 - Mala Almendarez [facility] be provided with provided with 06-06-2020 Mala Almendarez (31532) radiology test) radiology test) MRI ABDOMEN Inject, [...] metroNIDAZOLE metroNIDAZOLE (FLAGYL) 04-26-2020 - Johnny Mccall [facility] 500 mg tablet Take 1 05-03-2020 [facility] (84278) tablet by mouth three times daily for 7 days. 21 tablet 0 04/26/2020 05/03/2020 Active Comment: Take 1 tablet by mouth three times daily for 7 days. Naloxone naloxone 4 mg/actuation 06-21-2020 Jonh (Res) [facility] nasal spray (NARCAN) Use Chad (36 195) 1 spray in one nostril as [...] oxyCODONE IR 06-21-2020 - Maria Luisa Trejo [facility] (ROXICODONE) 5 mg 06-26-2020 (71709) immediate release tablet Indications: Benign liver cyst Take 1 tablet by mouth every 8 hours as needed for up to 5 days. 15 tablet 0 06/21/2020 06/26/2020 Active oxyCODONE IR 05-29-2020 - Sorin (Res) [facility] (ROXICODONE) 5 mg 06-03-2020 Alhalalmeh (57888) immediate release tablet Indications: Intractable nausea and [...] inic (PROTONIX) 40 mg 04-30-2020 [facility] (10157) tablet Take 1 tablet by mouth daily before breakfast. Take on empty stomach, 1/2 hr before meal. 30 tablet 3 04/30/2020 Active Comment: Take 1 tablet by mouth daily before breakfast. Take on empty stomach, 1/2 hr before meal. POLYETHYLENE GLYCOL polyethylene glycol 06-21-2020 - [place] (Res ) [facility] 3350 (MIRALAX) 17 07-22-2020 [facility] (44 195) gram/dose powder Dissolve 1 packet in 4-8 ounces of liquid and drink by mouth once daily as directed. 476 g 0 06/21/2020 07/22/2020 Active Comment: Dissolve 1 packet in 4-8 oun simi of liquid and drink by mouth once daily as directed. POLYETHYLENE GLYCOL peg 3350-Electrolytes 04-26-2020 - Johnny Mccall [facility] / Potassium (GOLYTELY) 04-26-2020 [facility] (441 95) Chloride / Sodium [id number] -5.86 Johnny Mccall Bicarbonate / gram suspension [facility] Sodium Chloride / Indications: sodium sulfate Generalized [...] 1 mg cap Take 1 [facility]cf Provider [facility] (22366) mg by mouth daily at bedtime. 0 Active Comment: Take 1 mg by mouth daily at bedtime. pregabalin pregabalin (LYRICA) 06-25-2020 - Mala oliver [facility] 300 mg capsule 07-09-2020 Mala Almendarez (84128) Indications: Post-op pain Take 1 capsule by mouth twice daily for 14 days. 28 capsule 0 06/25/2020 07/09/2020 Active Comment: Take 1 capsule by mouth twic e daily for 14 days. Promethazine promethazine (PHENERGAN) 05-24-2020 Johnny [facility] 25 mg tablet Take 1 [facility] (70661) tablet by mouth every 8 hours as needed (for nausea). 10 tablet 0 05/24/2020 Active Comment: Take 1 tablet by mouth every 8 hours as needed (for nausea). QUEtiapine QUEtiapine (SEROQUEL) 02-23-2020 Marcelino Mejia [facility] 100 mg tablet Take 1 (15156) tablet by mouth once daily. 0 02/23/2020 Active Comment: Take 1 tablet by mouth once daily. Sertraline sertraline (ZOLOFT) 100 02-23-2020 Marcelino Ferreira [facility] mg tablet Take 1 tablet (441 95) by mouth once daily. 0 02/23/2020 Active Comment: Take 1 tablet by mouth once daily. Sucralfate sucralfate (CARAFATE) 1 05-24-2020 Johnny Mccall Naya hu [facility] gram tablet Take 1 (58986) tablet by mouth four times daily. 30 tablet 0 05/24/2020 Active Comment: Take 1 tablet by mouth four times daily. Problems Active Problems Category Problem Name Status Date Location Abdominal pain Lower abdominal pain, Active 10-31-2019 - [facility] (88469[facility] Anxiety disorders Generalized anxiety Active 03-31-2016 - [facility] disorder (16850) Esophageal disorders Gastroesophageal reflux Active [facility] disease (65440) Headache; including Migraine without aura Active 05-17-2008 - [facility] migraine [facility] (84348) Mood disorders Reactive depression Active 03-31-2016 - [facility] (situational) (68444) Nausea and vomiting Nausea and vomiting Active 05-25-2020 - [facility] (23252) Other disorders of Indigestion Active [facility] stomach and duodenum (62203) Other gastrointestinal Diarrhea Active [facility] disorders (33572) Other gastrointestinal Loose stool Active [facility] disorders (00148) Other gastrointestinal Abdominal bloating Active [facility] disorders (80453) Other gastrointestinal Dysphagia Active [facility] disorders (83792) Other gastrointestinal Personal history of Active [facility] disorders other diseases of the (29953 ) digestive system Other infections; Local infection of wound Active [facility] including parasitic (97822) Other liver diseases Liver cyst Active 05-24-2010 - [facility] (77499) Other nervous system Postoperative pain Active 06-19-2020 - [facility] disorders (51309) Other nervous system Chronic pain syndrome Active 06-06-2020 - [facility] disorders (45718) Other non-traumatic joint Shoulder pain Active [facility] disorders (51685) Other upper respiratory Allergic rhinitis Active 05-17-2008 - [facility] disease (86223) Pancreatic disorders (not Idiopathic acute Active [facility] diabetes) pancreatitis (66316) Paralysis Weakness of right leg Active 02-23-2017 - [facility] (80427) Substance-related Smoker Active 05-17-2008 - Mello Pomer willem disorders [facility] (75888) Unclassified Patient encounter status Active 05-17-2008 - [facility] (43544) Past or Other Problems Category Problem Name Status Date Location Allergic reactions Allergy status to Completed 10-31-2019 - Mello Pomerene narcotic agent status [facility] (09280) Blindness and vision Blurring of visual Completed 02-23-2017 - [facility] defects image (14552) Calculus of urinary Kidney stone Completed 05-17-2008 - [facility] tract (17148) Diabetes mellitus Impaired fasting Completed 05-17-2008 - [facility] without complication glycaemia (74314) Miscellaneous mental Adjustment insomnia Completed 03-31-2016 - [facility] health disorders (06375) Other connective tissue Muscle weakness of Completed 02-23-2017 - [facility] disease upper limb (36789) Other connective tissue Trochanteric bursitis Completed 06-18-20 - [facility] disease (51350) Other diseases of Hydroureter Completed 02-05-2017 - [facility] kidney and ureters (97084) Other diseases of Hydronephrosis Completed 02-05-2017 - [facility] kidney and ureters (96607) Other lower respiratory Multiple nodules of Completed 01-22-2020 - [facility] disease lung (01254) Other nervous system Numbness of lower limb Completed 02-23-2017 - [facility] disorders (08161) Other nervous system Numbness of upper limb Completed 02-23-2017 - [facility] disorders (65056) Other nervous system Numbness of face Completed 02-23-2017 - [facility] disorders (20166) Other non-traumatic Hip pain Completed 06-18-2016 - [facility] joint disorders (77200) Other screening for MRI of lumbar spine Completed 02-23-2017 - C [facility] suspected conditions abnormal (37166) (not mental disorders or infectious disease) Ovarian cyst Cyst of ovary Completed 07-15-2012 - [facility] (68907) Residual codes; Acquired absence of Completed 10-31-2019 - [facility] unclassified both cervix and uterus [facility] (19012) Residual codes; Acquired absence of Completed 10-31-2019 - [facility] unclassified other specified parts [facility] of digestive tract (85359) Residual codes; FH: Diabetes mellitus Completed 05-17-2008 - [facility] unclassified (46428) Spondylosis; Low back pain Completed 06-18-2016 - [facility] intervertebral disc (41056) disorders; other back problems Results Result Name Value Range Unit Interpretation Flag Date Location obsolete on 2020-06 OBSOLETE Refill ([facility]) Normal 06-25-2020 [facility] SALLY MCGREGOR ([id number]) 1980 F Medical Date Time Provider Department Center 06/25/20 MALA ALMENDAREZ [facility] (31782) During your visit today, we recorded the [...] 06/25/20 progress on 2020-06 PROGRESS HNO ID: [id number] Normal 06-21-2020 Milka Dumont Author: Maria Luisa K [facility] Service: Pain Management (73638) Author Type: Physician Type: Progress Notes Filed: [...] Approx. 3 cigarettes daily-1 pack every w kaw Substance Use Topics - Alcohol use: Yes [...] and migraine headache. She was referred to [facility] pain management but was unable to go [...] pain. Small quantity oxycodone prescription sent to [facility] Maria Luisa Trejo MD plan of care on PLAN OF CARE HNO ID: [id number] Normal 06-21-20 [facility] Author: Rhonda Holman (Pharmacist) Center (41053) Service: Pharmacy Author Type: Pharmacist Type: Plan [...] PHARMACIST June 21, 2020 11:55 AM Pager: [phone] 06/21/2020 11:55 AM Medication List START taking [...] Your Medications These medications were sent to [facility] [address] [place], [place] [id number] Hours: Thursday-Thursday, 8am-6:30pm ? clindamycin 300 mg capsule ? docusate sodium 100 mg capsule ? naloxone 4 mg/actuation nasal spray ? oxyCODONE IR 5 mg immediate release tablet ? polyethylene glycol 3350 17 gram/dose powder nursing prog on NURSING HNO ID: [id number] Normal 06-21-2020 [facility]OG Author: Silvia Naranjo) VIN Gomez General Service: ? Medical Author Type: Registered Nurse Center Type: Nursing Progress Note ([id number]) Filed: 06/20/2020 11:32 PM Note Text: Nursing Progress Note Patient Name: Sally Mcgregor Patient Location: [id number] Pt has been eating better and was told by the doctor that wh en her intake improved the fluids could be discontinued. Pt does not want fluids to continue so RN stopped fluids on pt's request. Doctor note i ndicated what the pt said. This note was completed by: Silvia Gomez RN progress on 2020-06 PROGRESS HNO ID: [id number] Normal 06-20-2020 [facility] Author: Jonh Urrutia DO General Service: General Surgery Medical Author Type: Resident Center Type: Progress Notes ([id number]) Filed: 06/20/2020 8:38 AM Note Text: Attestation signed by Mala Almendarez at 06/20/2020 2:18 PM I saw and evaluated the patient. Discussed with the reside nt and agree with resident's findings and plan as documented in the resident's note. [facility] Progress Note SERVICE DATE: 06/20/2020 [facility] Service Pager: For questions or concerns Mon-Fri 6a-5p please page [phone]. After 5pm and on Weekends and Holidays, please page [phone]. SUBJECTIVE: Doing better this morning. Says pain [...] - enteric contrast (radiology procedure) ORAL DIRECTED MA N - oxyCODONE IR 5-10 mg tab(s) [...] questions or concerns Mon-Fri 6a-5p please page [phone]. After 5pm and on Weekends and Holidays, please page [phone] if in ICU or [phone] if on RNF. plan of care on PLAN OF CARE HNO ID: [id number] Normal 06-20-20 20 [facility] Medical Author: Nancy Abebe [place] ([id number]) Service: General Surgery Author Type: Resident Type: [...] history physical on 2020-06-20 HISTORY HNO ID: [id number] Normal 06-20-2020 [facility] PHYSICAL Author: Nancy Abebe [facility] Service: General Surgery Medical Author Type: Resident Center Type: HAND ([id number]) Filed: 06/19/2020 11:38 PM Note Text: Attestation signed by Mala Almendarez at 06/20/2020 2:18 PM Attending Note I personally saw and examined the patient. I reviewed the resident's note. I agree with the resident's assessment and plan with the [facility] revisions and/or additions: CT scan reviewed. [...] get worse. She was se nt to [facility] ED, where she was given IV Dilauded and transferred here to [facility]. Pt reports that she is urinating, passing flatus and BMs. No N/ V. No fevers or chills. Last PO was at 1300h. Pt has a h/o multiple abd surgeries. Reformed smoker x5 anai hs. FUNCTIONAL STATUS: Independent PAST MEDICAL HISTORY Diagnosis Date - Allergic rhinitis, cause unspecified 05/17/2008 Spring and summer - Benign liver cyst 05/24/2010 CT scan at [facility] 11/2009 and 04/2010 showe 4 mm increase in size . No pain. No elevated LFTs on 03/11/2010. - Calculus of kidney 05/17/[address] Nicolas: Hospitalized age 20, and again later -- no procedures so far ([facility], [facility], 1995 [facility]) - Cancer (HCC) - Diverticulosis - Dysmenorrhea [...] Approx. 3 cigarettes daily-1 pack every w kaw Substance Use Topics - Alcohol use: Yes [...] oz (86.0kg) SpO2 100% LMP 08/10/2006 [place] 35.84 kg/(m2). O2 Therapy: Room Air DATA: [...] DATE OF EXAM: Jun 20 2020 11:59AM [facility] 0530 - CT ABD/PEL W IVCON / (05132) PROCEDURE REASON: Abd pain, unspecified Physician Interpretation [...] ed portions of the heart are unremarkable. Trimmer Helper (topogram) images: No additional findings. IMPRESSION: 1. Postsurgical changes in the posterior right hepatic dome with residual 8.3 cm cystic cavity with trace likely postsurgical gas, but no peripheral enhancement to suggest acute inflammation. 2. Other hepatic cyst are unchanged. 3. No acute intra-abdominal or pelvic findings. Smash Piecer: HERMINIO Transcribe Date/Time: Jun 20 2020 12:16P Dictated by : NILAM OVIEDO MD This examination was interpreted and the report reviewed and electronically signed by: NILAM OVIEDO MD on Jun 20 2020 12:28PM EST consult on CONSULT HNO ID: [id number] Normal 06-20-2020 [facility] Author: [facility] Anya [facility] Service: Pain Management (81081) Author Type: Physician Type: Consults Filed: 06/20/2020 [...] - enteric contrast (radiology procedure) ORAL DIRECTED MA N Kaushal (Res) DO Grupo - oxyCODONE [...] 1 gram tablet, Take 1 tablet by [facility] four times daily., Disp: 30 tablet, [...] Approx. 3 cigarettes daily-1 pack every w kaw Substance Use Topics - Alcohol use: Yes [...] and migraine headache. She was referred to [facility] pain management but was unable to go [...] health on 03-07-07 [facility] HNO ID: [id number] Normal 020 [facility] Author: Holly PickardRt) [facility] Service: Radiology ( 60401) Author Type: Ict Customer Support Officer Type: Allied Health Filed: 06/20/2020 12:04 PM [...] unstable renal function, e.g. those with ac [place] kidney injury, the eGFR may not accurately reflect actual GFR. eGFR- Date Value Ref Range Status 06/19/2020 >60 Final 02/15/2020 >60 Final P.O.C.T. RESULTS: N/A June 20, 2020 TREATMENT: N/A and No Hydration needed. PERIPHERAL IV DATA: Inpatient - refer to [facility] documentation RADIOLOGY DEPARTMENT: CT; Exam(s) Completed: Abdomen/Pelvis SIGNATURE: RT Jada PATIENT NAME: Sally caldwell DATE: June 20, 2020 TIME: 11:59 AM comp metab 1999 pnl serpl on 2020-06-19 Albumin [Mass/Vol] 4.3 3.9-4.9 g/dL Normal 06-19-2020 [facility] (96253) Comment: Order Comment: Specimen Type : BLOOD SPECIMEN Performed By: #### [id number] # ###[facility]ORYCLIA [id number] [facility] [place] [address] ALP [Catalytic activity/Vol] 110 34-123 U/L Normal 1 0-06-2020 [facility] (00 000) Comment: Order Comment: Specimen Type : BLOOD SPECIMEN Performed By: #### 81491-3 # ###[facility]ORATORYCLIA [id number] [facility] [address] ALT With P-5'-P [Catalytic 16 7-38 U/L Normal [facility] Medical activity/Vol] [place] ([address]93) Comment: Order Comment: Specimen Type : BLOOD SPECIMEN Performed By: #### [id number] # ###[facility]ATORYCLIA [id number] [facility] [address] Anion gap [Moles/Vol] 13 9-18 mmol/L Normal 06-19-20 20 [facility] (95757) Comment: Order Comment: Specimen Type : BLOOD SPECIMEN Performed By: #### 23839-8 # ###[facility]ATORYCLIA [id number] [facility] [address] AST With P-5'-P [Catalytic 19 13-35 U/L Normal [facility] activity/Vol] [place] (25503) Comment: Order Comment: Specimen Type : BLOOD SPECIMEN Performed By: #### 36974-0 # ###[facility]ATORYCLIA [id number] [facility] [address] Bilirubin [Mass/Vol] 0.2 0.2-1.3 mg/dL Normal 0 [facility] (19028) Comment: Order Comment: Specimen Type : BLOOD SPECIMEN Performed By: #### 00790-0 # ###[facility]ORYCLIA [id number] [facility] [address] Calcium [Mass/Vol] 9.1 8.5-10.2 mg/dL Normal 06-19-2020 [facility] (05966) Comment: Order Comment: Specimen Type : BLOOD SPECIMEN Performed By: #### 78590-7 # ###[facility]ATORYCLIA [id number] [facility] [place] [address] Chloride [Moles/Vol] 102 97-105 mmol/L Normal 0 [facility] (80590) Comment: Order Comment: Specimen Type : BLOOD SPECIMEN Performed By: #### 78381-5 # ###[facility] LABORATORYCLIA [id number] [facility] [place] [address] CO2 [Moles/Vol] 22 22-30 mmol/L Normal 06-19-2020 [facility] (89093) Comment: Order Comment: Specimen Type : BLOOD SPECIMEN Performed By: #### 14817-1 # ###[facility] LABORATORYCLIA [id number] [facility] [place] [place] [address] Creatinine [Mass/Vol] 0.88 0.58-0.96 mg/dL Normal 06-19-20 20 [facility] (00 000) Comment: Order Comment: Specimen Type : BLOOD SPECIMEN Performed By: #### 98790-9 # ###[facility] LABORATORYCLIA [id number] [facility] [address] GFR/1.73 sq M.predicted >60 mL/min/{1.73_m2} Normal 06-19-2020 [facility] MDRD (S/P/Bld) [[facility] rate/Area] (34141) Comment: Order Comment: Specimen Type : BLOOD SPECIMEN Result Comment: >60 eGFR (Estimated GFR) Units o f measure: mL/min/1.73 meters squared eGFR is derived from the ree xpressed MDRD Study equation using the following parameters: serum creatinine, age, gender and race. The creatinine assay has been calibrated to be traceable to IDAR. An eGFR <60 mL/min/1.73m2 for >3 mo nths is consistent with chronic kidney disease. Refer to KDOQI guidelines for clinical interpretation. In patients with unstable renal function, e.g. those with acute k idney injury, the eGFR may n ot accurately reflect actual GFR. Performed By: #### 25195-9 # ###[facility] LABORATORYCLIA [id number] [facility] [place] [address] Glucose [Mass/Vol] 100 74-99 mg/dL High 06-19-2020 [facility] (21965) Comment: Order Comment: Specimen Type : BLOOD SPECIMEN Result Comment: The [place] Diabetes Association (ADA) provides guidance for cutoff [...] for diagnosis of diabetes. Reference: Standards of [facility] Care in Diabetes 2016, [place] [employer]. Diabetes Care. 2016.39(Suppl 1). Performed By: #### 94793-0 # ###[employer] [facility] LABORATORYCLIA [id number] [facility] [address] Potassium [Moles/Vol] 3.8 3.7-5.1 mmol/L Normal 06-19-20 20 [facility] (00 000) Comment: Order Comment: Specimen Type : BLOOD SPECIMEN Performed By: #### 94094-9 # ###[facility] LABORATORYCLIA [id number] [facility] [place] [address] Protein [Mass/Vol] 7.7 6.3-8.0 g/dL Normal 06-19-2020 [facility] (58681) Comment: Order Comment: Specimen Type : BLOOD SPECIMEN Performed By: #### 95343-3 # ###[facility] [facility] LABORATORYCLIA [id number] [facility] [address] Sodium [Moles/Vol] 137 136-144 mmol/L Normal 06-19-2020 [facility] (41251) Comment: Order Comment: Specimen Type : BLOOD SPECIMEN Performed By: #### 53999-9 # ###[employer] [facility] LABORATORYCLIA [id number] [facility] [place] [address] Urea nitrogen [Mass/Vol] 14 7-21 mg/dL Normal 06-19 [facility] (77687) Comment: Order Comment: Specimen Type : BLOOD SPECIMEN Performed By: #### 48376-5 # ###[facility] LABORATORYCLIA [id number] [facility] [place] [address] cbc w auto diff bld on 2020-06-19 Basophils (Bld) [#/Vol] 0.08 <0.11 k/uL Normal 2019 [facility] (00 000) Comment: Order Comment: Specimen Type : BLOOD SPECIMEN Performed By: #### 16415-9 # ###[facility] LABORATORYCLIA [id number] [facility] [place] [address] Basophils/100 WBC (Bld) 0.7 % Normal 2019 [facility] (75392) Comment: Order Comment: Specimen Type : BLOOD SPECIMEN Performed By: #### 71529-4 # ###[facility] LABORATORYCLIA [id number] [facility] [place] [place] [address] Differential cell count method Auto Normal 06-19-2020 [facility] (Bld[facility] (00 000) Comment: Order Comment: Specimen Type : BLOOD SPECIMEN Performed By: #### 56983-3 # ###[facility] LABORATORYCLIA [id number] [facility] [place] [place] [address] Eosinophils (Bld) [#/Vol] 0.71 <0.46 k/uL High [facility] (00 000) Comment: Order Comment: Specimen Type : BLOOD SPECIMEN Performed By: #### 54527-4 # ###[facility] LABORATORYCLIA [id number] [facility] [place] [address] Eosinophils/100 WBC (Bld) 6.0 % Normal [facility] (20393) Comment: Order Comment: Specimen Type : BLOOD SPECIMEN Performed By: #### 69209-5 # ###[facility] LABORATORYCLIA [id number] [facility] [place] [address] Erythrocyte distribution 13.3 11.5-15.0 % Normal 06-19 [facility] (RBC) [Ratio] Center ([address]331) Comment: Order Comment: Specimen Type : BLOOD SPECIMEN Performed By: #### 58193-1 # ###[facility] LABORATORYCLIA [id number] [facility] [place] [place] [address] Hematocrit (Bld) [Volume 37.8 36.0-46.0 % Normal 06-19 [facility]] Center (00 000) Comment: Order Comment: Specimen Type : BLOOD SPECIMEN Performed By: #### 11711-0 # ###[facility] LABORATORYCLIA [id number] [facility] [place] [address] Hemoglobin (Bld) 12.1 11.5-15.5 g/dL Normal 06-19-2020 [facility] [Mass/Vol] [place] (0 0000) Comment: Order Comment: Specimen Type : BLOOD SPECIMEN Performed By: #### 87426-9 # ###[facility] LABORATORYCLIA [id number] [facility] [place] [address] IMMATURE GRAN % 1.5 % Normal 06-19-2020 [facility] (78225) Comment: Order Comment: Specimen Type : BLOOD SPECIMEN Performed By: #### 09190-3 # ###[facility] LABORATORYCLIA [id number] [facility] [place] [address] IMMATURE GRAN ABS 0.18 <0.10 k/uL High 06-19-2020 [facility] (34153) Comment: Order Comment: Specimen Type : BLOOD SPECIMEN Result Comment: Differential confirmed by visual scan of peripheral blood smear slide Performed By: #### 77851-1 # ###[facility] LABORATORYCLIA [id number] [facility] [place] [address] Lymphocytes (Bld) [#/Vol] 4.79 1.00-4.00 k/uL High [facility] (00 000) Comment: Order Comment: Specimen Type : BLOOD SPECIMEN Performed By: #### 94407-1 # ###[facility] LABORATORYCLIA [id number] [facility] [place] [place] [address] Lymphocytes/100 WBC (Bld) 40.6 % Normal [facility] (05594) Comment: Order Comment: Specimen Type : BLOOD SPECIMEN Performed By: #### 63371-0 # ###[facility] LABORATORYCLIA [id number] [facility] [place] [address] MCH (RBC) [Entitic mass] 28.6 26.0-34.0 pg Normal 06-19 [facility] () Comment: Order Comment: Specimen Type : BLOOD SPECIMEN Performed By: #### 78148-4 # ###[facility] LABORATORYCLIA [id number] [facility] [place] [address] MCHC (RBC) [Mass/Vol] 32.0 30.5-36.0 g/dL Normal 06-19-20 [facility] () Comment: Order Comment: Specimen Type : BLOOD SPECIMEN Performed By: #### 39541-9 # ###[facility] LABORATORYCLIA [id number] [facility] [place] [address] MCV (RBC) [Entitic vol] 89.4 80.0-100.0 fL Normal 06-19 [facility] () Comment: Order Comment: Specimen Type : BLOOD SPECIMEN Performed By: #### 45765-0 # ###[facility] LABORATORYCLIA [id number] [facility] [place] [address] Monocytes (Bld) [#/Vol] 0.53 <0.87 k/uL Normal 2019 [facility] () Comment: Order Comment: Specimen Type : BLOOD SPECIMEN Performed By: #### 77622-3 # ###[facility] LABORATORYCLIA [id number] [facility] [place] [address] Monocytes/100 WBC (Bld) 4.5 % Normal 2019 [facility] (56392) Comment: Order Comment: Specimen Type : BLOOD SPECIMEN Performed By: #### 27314-9 # ###[facility] LABORATORYCLIA [id number] [facility] [place] [address] Neutrophils (Bld) [#/Vol] 5.51 1.45-7.50 k/uL Normal [facility] () Comment: Order Comment: Specimen Type : BLOOD SPECIMEN Performed By: #### 47087-8 # ###[facility] LABORATORYCLIA [id number] [facility] [place] [address] Neutrophils/100 WBC (Bld) 46.7 % Normal [facility] (78407) Comment: Order Comment: Specimen Type : BLOOD SPECIMEN Performed By: #### 98148-1 # ###[facility] LABORATORYCLIA [id number] [facility] [place] [address] Nucleated RBC (Bld) <0.01 <0.01 10*3/uL Normal 06-19-2020 [facility] [#/Vol] [place] (00 000) Comment: Order Comment: Specimen Type : BLOOD SPECIMEN Performed By: #### 27225-2 # ###[facility] LABORATORYCLIA [id number] [facility] [place] [address] Nucleated RBC/100 WBC 0.0 0.0 /100 WBC Normal 06-19-20 [facility] (Bld) [Ratio] [place] ([address]) Comment: Order Comment: Specimen Type : BLOOD SPECIMEN Performed By: #### 62354-4 # ###[facility] LABORATORYCLIA [id number] [facility] [place] [address] Platelet mean volume (Bld) 10.4 9.0-12.7 fL Normal [facility] [Entitic vol] [place] ([address]) Comment: Order Comment: Specimen Type : BLOOD SPECIMEN Performed By: #### 99288-4 # ###[facility] LABORATORYCLIA [id number] [facility] [place] [address] Platelets (Bld) [#/Vol] 324 150-400 k/uL Normal 2019 [facility] (00 000) Comment: Order Comment: Specimen Type : BLOOD SPECIMEN Performed By: #### 46074-5 # ###[facility] LABORATORYCLIA [id number] [facility] [place] [address] RBC (Bld) [#/Vol] 4.23 3.90-5.20 m/uL Normal 06-19-2020 [facility] (34950) Comment: Order Comment: Specimen Type : BLOOD SPECIMEN Performed By: #### 36706-8 # ###[facility] LABORATORYCLIA [id number] [facility] [place] [address] RED CELL MORPH Normal Normal 06-19-2020 [facility] (15635) Comment: Order Comment: Specimen Type : BLOOD SPECIMEN Performed By: #### 31900-3 # ###[facility] LABORATORYCLIA [id number] [facility] [address] WBC (Bld) [#/Vol] 11.80 3.70-11.00 k/uL High 06-19-2020 [facility] (20958) Comment: Order Comment: Specimen Type : BLOOD SPECIMEN Performed By: #### 17247-7 # ###[facility] LABORATORYCLIA [id number] [facility] [address] cnpn on 2020-06-15 CNPN Telephone (AGGENS6) Normal 06-15-2020 [facility] SALLY MCGREGOR ([id number]) 1980 F Medical Date Time Provider Department Center 06/15/20 TATY PEREA (HELPER [employer]LECT[employer], MEDICAL ADVISOR) AGGENS6 (91469) During your visit today, we recorded the following informati on about you: Taty Perea APRN.MEDICAL ADVISOR 06/15/2020 11:28 AM Signed Patient called the [...] have transportation. She refuses to go to [facility] ER to be seen because they treat her poorly. I will send an RX to her pharmacy for an antibiotic. She is to notify the office if her symptoms worsen or do not improve. Taty Perea APRN, MEDICAL ADVISOR Allergies As of Date: 06/15/2020 Noted Allergy [...] 06/15/20 progress on 2020-05 PROGRESS HNO ID: [id number] Normal 06-13-2020 [facility] Author: Kimmie Jennings General Service: General Surgery Medical Author Type: Resident Center Type: Progress Notes ([id number]) Filed: 06/13/2020 6:55 AM Note Text: Attestation signed by Mala Almendarez at 06/18/2020 1:28 PM I saw and evaluated the patient. Discussed with the reside nt and agree with resident's findings and plan as documented in the resident's note. [facility] Progress Note SERVICE DATE: 06/13/2020 [facility] Service Pager: For questions or concerns Mon-Fri 6a-5p please page [phone]. After 5pm and on Weekends and Holidays, please page [phone]. SUBJECTIVE: Patient stayed overnight due to uncontrolled [...] 0659 06/13/20 07 - 06/14/20 0659 Shift 8341-0651 2620-1917 2968-0983 24 Hour Total 1021-6035 0267-7546 1153-4813 24 Hour Total INTAKE PO 240 200 [...] questions or concerns Mon-Thu 6a-5p please page [phone]. After 5pm and on Weekends and Holidays, please page [phone] if in ICU or [phone] if on RNF. PROGRESS HNO ID: [id number] Normal 06-13-2020 [facility] Author: Mer (Rn) VIN Bejarano General Service: [...] plan of care on PLAN HNO ID: [id number] Normal 06-13-2020 [facility] OF Author: Aureliano Dietz DO General CARE [...] Phosphate [Mass/Vol] 3.9 2.7-4.8 mg/dL Normal 0 [facility] (32673) Comment: Performed By: #### URIN2 ### # [facility] [address] [place] [address] mdrd gfr on 2020-05 GFR/1.73 sq M >60 >60mL/min/1.73m2 mL/min/{1.73_m2} Normal [facility] non-blacks MDRD (000 00) (S/P/Bld) [Vol rate/Area] Comment: Result Comment: If the patie nt is , multiply the result by 1.210. Performed By: #### GFR #### [address] [address] magnesium blood on 2020-06-13 Magnesium [Mass/Vol] 2.1 1.7-2.3 mg/dL Normal 0 [facility] (09044) Comment: Performed By: #### URIN2 ### # [address] [address] hemogram on 2020-05 Erythrocyte distribution 13.4 11.7-14.4 % Normal 06-13 [facility] width (RBC) [Ratio] System (97540) Comment: Performed By: #### URIN2 ### # [facility] [address] [place], [place] [address] Hematocrit (Bld) [Volume 37.9 34.1-44.9 % Normal 06-13 [facility] fraction] System (00 000) Comment: Performed By: #### URIN2 ### # [address] [address] Hemoglobin (Bld) 12.1 11.2-15.7 g/dL Normal 06-13-2020 [facility] [Mass/Vol] System (0 0000) Comment: Performed By: #### URIN2 ### # [facility] [address] [place], [place] [address] MCH (RBC) [Entitic mass] 28.9 25.6-32.2 pg Normal 06-13 [facility] (00 000) Comment: Performed By: #### URIN2 ### # [facility] [address] [place], [place] [address] MCHC (RBC) [Mass/Vol] 31.9 31.6-34.8 % Normal 06-13-20 20 [facility] (93526) Comment: Performed By: #### URIN2 ### # [facility] [address] [place], [place] [address] MCV (RBC) [Entitic vol] 90.7 79.4-94.8 fl Normal 2019 [facility] (00 000) Comment: Performed By: #### URIN2 ### # [facility] [address] [place], [place] [address] Platelet mean volume (Bld) 10.9 9.4-12.3 fl Normal [facility] [Entitic vol] System (02183) Comment: Performed By: #### URIN2 ### # [facility] [address] [place], [place] [address] Platelets (Bld) [#/Vol] 236 182-369 thou/cmm Normal 2019 [facility] (00 000) Comment: Performed By: #### URIN2 ### # [facility] [address] [place], [place] [address] RBC (Bld) [#/Vol] 4.18 3.93-5.22 mil/cmm Normal 06-13-2020 [facility] (00 000) Comment: Performed By: #### URIN2 ### # [facility] [address] [place], [place] [address] RDW SD 44.2 36.4-46.3 fl Normal 06-13-2020 [facility] (00039) Comment: Performed By: #### URIN2 ### # [facility] [address] [place], [place] [address] WBC (Bld) [#/Vol] 7.45 3.98-10.04 thou/cmm Normal 06-13-2020 [facility] (00 000) Comment: Performed By: #### URIN2 ### # [facility] [address] [place] [address] comprehensive metabolic panel on 2020-06-13 Albumin [Mass/Vol] 4.1 3.9-4.9 g/dL Normal 06-13-2020 [facility] (32292) Comment: Performed By: #### URIN2 ### # [facility] [address] [place] [address] ALP [Catalytic activity/Vol] 98 34-123 U/L Normal 0 06-13-2020 [facility] (00 000) Comment: Performed By: #### URIN2 ### # [facility] [address] [place] [address] ALT [Catalytic activity/Vol] 73 7-38 U/L High 0 06-13-2020 [facility] (99838) Comment: Performed By: #### URIN2 ### # [facility] [address] [place] [address] Anion gap [Moles/Vol] 10 9-18 mmol/L Normal 06-13-20 20 [facility] (86901) Comment: Performed By: #### URIN2 ### # [facility] [address] [place] [address] AST [Catalytic activity/Vol] 69 13-35 U/L High 0 06-13-2020 [facility] (18973) Comment: Performed By: #### URIN2 ### # [facility] [address] [place] [id number] Bilirubin [Mass/Vol] 0.6 0.2-1.3 mg/dL Normal 0 [facility] (02244) Comment: Performed By: #### URIN2 ### # [facility] [address] [place] [id number] Calcium [Mass/Vol] 9.1 8.5-10.2 mg/dL Normal 06-13-2020 [facility] (68245) Comment: Performed By: #### URIN2 ### # [facility] [address] [place], [place] [address] Chloride [Moles/Vol] 101 97-105 mmol/L Normal 0 [facility] (32737) Comment: Performed By: #### URIN2 ### # [facility] [address] [place], [place] [address] CO2 Blood 27 22-30 mmol/L Normal 06-13-2020 [facility] (72094) Comment: Performed By: #### URIN2 ### # [facility] [address] [place], [place] [address] Creatinine [Mass/Vol] 0.87 0.58-0.96 mg/dL Normal 06-13-20 [facility] (00 000) Comment: Performed By: #### URIN2 ### # [facility] [address] [place], [place] [address] Glucose [Mass/Vol] 94 74-99 mg/dL Normal 06-13-2020 [facility] (14421) Comment: Result Comment: The [place] Diabetes Association (ADA) provides guidance for cutoff [...] Standards of Medical Care in Diabetes 2016; [place] [employer]. Diabetes Care. 2016;39(Suppl 1). Performed By: #### URIN2 ### # [facility] [address] [place], [place] [address] Potassium [Moles/Vol] 3.8 3.7-5.1 mmol/L Normal 06-13-20 [facility] (00 000) Comment: Performed By: #### URIN2 ### # [facility] [address] [place], [place] [address] Protein [Mass/Vol] 7.3 6.3-8.0 g/dL Normal 06-13-2020 [facility] (13219) Comment: Performed By: #### URIN2 ### # [facility] [address] [place], [place] [address] Sodium [Moles/Vol] 138 136-144 mmol/L Normal 06-13-2020 [facility] (10715) Comment: Performed By: #### URIN2 ### # [facility] [address] [place], [place] [address] Urea nitrogen [Mass/Vol] 7 7-21 mg/dL Normal 06-13 [facility] (87211) Comment: Performed By: #### URIN2 ### # [facility] [address] [place], [place] [address] case managem on CASE MANAGEM HNO ID: [id number] Normal 06-13-20 [facility] Author: Britni PickardRn) [place] [facility] Service: Care Management (61963) Author Type: Registered Nurse Type: Care Mgt [...] Name/Phone: Floor RN TRANSPORTATION ARRANGEMENTS: Transportation Arrangements: [employer] (through [employer]) [place] [employer]: [phone] Trip #: [id number] Needs Prior to Discharge: Ready for Discharge Chart reviewed. Discharge held yesterday due to uncontrolled pain. Spoke with patient. Plan is for discharge today. Awaiting di awarfausto orders. Discharge disposition= Home with follow up care. SIGNATURE: Britni Grimaldo RN PATIENT NAME: Sally james DATE: June 13, 2020 TIME: 11:00 AM PAGER/CONTACT #: [phone] progress on 2020-05 PROGRESS HNO ID: [id number] Normal 06-12-2020 [facility] Author: Nancy Abebe [facility] Service: General Surgery Medical Author Type: Resident Center Type: Progress Notes (66713) Filed: 06/12/2020 7:57 AM Note Text: Attestation signed by Mala Almendarez at 06/12/2020 9:28 PM Attending Note I personally saw and examined the patient. I reviewed the resident's note. I agree with the resident's assessment and plan with the maureen strong revisions and/or additions: Still with severe pain. Will hold DC today and poss dc [facility] Signature: Mlaa Almendarez MD Date: 06/12/2020 Time: 9:28 PM [facility] Progress Note SERVICE DATE: 06/12/2020 [facility] Service Pager: For questions or concerns Mon-Fri 6a-5p please page [phone]. After 5pm and on Weekends and Holidays, please page [phone]. SUBJECTIVE: C/o significant pain that prevents her [...] 06/11/20699 - 06/12/2065806/12/20699 - 06/13/20 0659 Shift 7806-4593 6984-4730 0739-9284 24 Hour Total 5846-8171 9474-6677 6704-8691 24 Hour Total INTAKE PO 100 100 PO 100 100 IV 1900 1900 OR Crystalloid intake (mL) 1000 1000 Volume (mL) (lactated ringers infusion) 900 900 Shift Total 0964 647 5528 OUTPUT Urine 105 318 2812 Void (ml) 600 600 OR Urine Output 500 500 Urine Not Saved. 1 x 3 x 4 x Blood 50 50 Estimated Blood loss 50 50 Shift Total 830 117 9552 Weight (kg) 89.6 89.6 89.6 89.6 89.6 [...] care on PLAN OF CARE HNO ID: [id number] Normal 06-12-20 [facility] Author: Page Burgess (Press Set Up Person) [place] ([address]) Service: Pharmacy Author Type: Pharmacist Type: Plan [...] from Discharge Medication Li st. Page Burgess, Press Set Up Person June 12, 2020 10:36 AM Medication List [...] Your Medications These medications were sent to [facility] [address] [place] [address] Hours: Thursday-Thursday, 8am-6:30pm ? oxyCODONE IR 5 mg immediate release tablet phosphorous blood o n 2020-06-12 Phosphate [Mass/Vol] 3.4 2.7-4.8 mg/dL Normal 0 [facility] ([address]254) Comment: Performed By: #### CBCD1 ### # [place] [address] magnesium blood on 2020-06-12 Magnesium [Mass/Vol] 1.5 1.7-2.3 mg/dL Low 0 [facility] (77556) Comment: Performed By: #### CBCD1 ### # [place] [address] hemogram on 2020-05 Erythrocyte distribution 13.2 11.7-14.4 % Normal 06-[facility] (RBC[facility] [Ratio] System (20922) Comment: Performed By: #### CBCD1 ### # [place] [address] Hematocrit (Bld) [Volume 32.9 34.1-44.9 % Low 06-12 [facility] fraction] System (00 000) Comment: Performed By: #### CBCD1 ### # [place] [address] Hemoglobin (Bld) [Mass/Vol] 10.5 11.2-15.7 g/dL Low [facility] (00 000) Comment: Performed By: #### CBCD1 ### # [place] [address] MCH (RBC) [Entitic mass] 29.2 25.6-32.2 pg Normal 06-12 [facility] (00 000) Comment: Performed By: #### CBCD1 ### # [address], [place] [address] MCHC (RBC) [Mass/Vol] 31.9 31.6-34.8 % Normal 06-12-20 20 [facility] (00486) Comment: Performed By: #### CBCD1 ### # [facility] [address] [place], [place] [address] MCV (RBC) [Entitic vol] 91.4 79.4-94.8 fl Normal 2019 [facility] (00 000) Comment: Performed By: #### CBCD1 ### # [facility] [address] [place] [id number] Platelet mean volume (Bld) 11.5 9.4-12.3 fl Normal [facility] [Entitic vol] System (04200) Comment: Performed By: #### CBCD1 ### # [facility] [address] [place], [place] [address] Platelets (Bld) [#/Vol] 182 182-369 thou/cmm Normal 2019 [facility] (00 000) Comment: Performed By: #### CBCD1 ### # [facility] [address] [place], [place] [address] RBC (Bld) [#/Vol] 3.60 3.93-5.22 mil/cmm Low 06-12-2020 [facility] (90682) Comment: Performed By: #### CBCD1 ### # [facility] [address] [place], [place] [address] RDW SD 44.5 36.4-46.3 fl Normal 06-12-2020 [facility] (33585) Comment: Performed By: #### CBCD1 ### # [facility] [address] [place], [place] [address] WBC (Bld) [#/Vol] 7.04 3.98-10.04 thou/cmm Normal 06-12-2020 [facility] (00 000) Comment: Performed By: #### CBCD1 ### # [facility] [address] [place], [place] [address] case managem on 202 CASE MANAGEM HNO ID: [id number] Normal 06-12-20 [facility] Author: Britni (Rn) [facility] Service: Care Management (86521) Author Type: Registered Nurse Type: Care Mgt [...] 12, 2020 TIME: 9:18 AM PAGER/CONTACT #: [phone] basic metabolic panel on 2020-06-12 Anion gap [Moles/Vol] 8 9-18 mmol/L Low 06-12-20 20 [facility] (39092) Comment: Performed By: #### CBCD1 ### # [facility] [address] [place], [place] [address] Calcium [Mass/Vol] 8.0 8.5-10.2 mg/dL Low 06-12-2020 [facility] (54805) Comment: Performed By: #### CBCD1 ### # [facility] [address] [place], [place] [address] Chloride [Moles/Vol] 104 97-105 mmol/L Normal 0 [facility] (21582) Comment: Performed By: #### CBCD1 ### # [facility] [address] [place], [place] [address] CO2 Blood 26 22-30 mmol/L Normal 06-12-2020 [facility] (91598) Comment: Performed By: #### CBCD1 ### # [facility] [address] [place], [place] [address] Creatinine [Mass/Vol] 0.87 0.58-0.96 mg/dL Normal 06-12-20 [facility] (00 000) Comment: Performed By: #### CBCD1 ### # [facility] [address] [place], [place] [address] Glucose [Mass/Vol] 83 74-99 mg/dL Normal 06-12-2020 [facility] ([id number]) Comment: Result Comment: The [place] Diabetes Association (ADA) provides guidance for cutoff [...] Standards of Medical Care in Diabetes 2016; [employer] [employer]. Diabetes Care. 2016;39(Suppl 1). Performed By: #### CBCD1 ### # [facility] 1 [place], [place] [address] Potassium [Moles/Vol] 3.4 3.7-5.1 mmol/L Low 06-12-20 20 [facility] (43845) Comment: Performed By: #### CBCD1 ### # [facility] 1 [place], [place] [address] Sodium [Moles/Vol] 138 136-144 mmol/L Normal 06-12-2020 [facility] (40335) Comment: Performed By: #### CBCD1 ### # [facility] 1 [place], [place] [address] Urea nitrogen [Mass/Vol] 6 7-21 mg/dL Low 06-12 [facility] (91680) Comment: Performed By: #### CBCD1 ### # [facility] 1 [place], [place] [address] type and screen on 2020-06-11 ABO group Nom (Bld) O Normal 06-11-2020 [facility] (92363) Comment: Performed By: #### CBCD1 ### # [place] [address] Comment See Below Normal 06-11-2020 [facility] (31827) Comment: Result Comment: Screen &/or Xmatch expires in 3 days at 12 midnight. Redraw patient at that time. Performed By: #### CBCD1 ### # [place] [address] RH Type Positive Normal 06-11-2020 [facility] (84548) Comment: Performed By: #### CBCD1 ### # [place] [address] surgical tissue exam on 2020-06-11 Surgical Tissue Exam Test performed at [facility] Normal 06-11-2020 [facility] [address] [place] [address] ([id number]) NAME: SALLY MCGREGOR REQUESTING: MALA ALMENDAREZ MD [...] are not see n on the specimen. Relay Assembler sections are submitted in formalin in 4 cassettes. LETICIA/chadd VILLASEÑOR M.D., PATHOLOGIST (Electronic signature on file) Signed out: 06/13/2020 16:48 PRINTED: 06/13/2020 Page 1 of 1 Comment: Performed By: #### URIN2 ### # [place] [address] progress on 2020-05 PROGRESS HNO ID: [id number] Normal 06-11-2020 [place] Author: Kimmie Topetem General Service: General Surgery Medical Author Type: Resident Center Type: Progress Notes ([id number]) Filed: 06/11/2020 7:03 AM Note Text: Attestation [...] questions or concerns Mon-Fri 6a-5p please page [phone]. After 5pm and on Weekends and Holidays, please page [phone]. SUBJECTIVE: NAEON. Afebrile. Patient resting in bed [...] - 06/11/20 0606/11/20699 - 06/12/20 0659 Shift 1458-1911 9063-2549 8625-4041 24 Hour Total 7008-4052 8591-9613 0638-9106 24 Hour Total INTAKE PO 600 600 [...] questions or concerns Thu-Thu 6a-5p please page [phone]. After 5pm and on Weekends and Holidays, please page [phone] if in ICU or [phone] if on RNF. operative no on 202 OPERATIVE NO HNO ID: [id number] Normal 06-11-20 [facility] Author: Mala Eddy [facility] Service: General Surgery ([id number]) Author Type: Physician Type: Operative Report Filed: 06/11/2020 1:39 PM Note Text: [facility] - Operative Report SALLY MCGREGOR : 1980 AGE: 39. SEX: F PATIENT TYPE: I HOSP SVC: GENS LOCATION: [facility] ATTENDING PHYSICIAN: MALA ALMENDAREZ CSN NUMBER: [id number] DATE OF SURGERY/PROCEDURE: 06/11/2020 INCISION/PROCEDURE START TIME: 10:51 AM INCISION CLOSE/PROCEDURE END TIME: 11:47 AM PREOPERATIVE DIAGNOSIS: Symptomatic liver cyst. POSTOPERATIVE DIAGNOSIS: Symptomatic liver cyst. SURGEON: Mala Almendarez MD INJECTION PRESS OPERATOR: None. SURGERY/PROCEDURE: Laparoscopic partial right hepatic lobect [...] CLASS: 2, clean, contaminated. Mala Almendarez MD NSA:[id number] /[id number] nursing prog on NURSING PROG HNO ID: [id number] Normal 06-11-20 20 [facility] Author: Garo PickardRnJoao Jackson RN [facility] Service: ? ([id number]) Author Type: Registered Nurse Type: Nursing Progress Note Filed: 06/11/2020 6:25 PM Note Text: Nursing Progress Note Patient Name: Sally Mcgregor Patient Location: [place] [id number]- Patient refusing IV fluids, states we can restart them when she goes to bed. Informed surgery team. This note was completed by: Garo Jackson RN hemogram on 2020-05 Erythrocyte distribution 13.0 11.7-14.4 % Normal 06-11 [facility] width (RBC) [Ratio] System (75800) Comment: Performed By: #### CBCD1 ### # [facility] 1 [place] [id number] Hematocrit (Bld) [Volume 35.0 34.1-44.9 % Normal 06-11 [facility] fraction] System (00 000) Comment: Performed By: #### CBCD1 ### # [facility] 1 [place], [place] [address] Hemoglobin (Bld) 11.4 11.2-15.7 g/dL Normal 06-11-2020 [facility] [Mass/Vol] System (0 0000) Comment: Performed By: #### CBCD1 ### # [facility] 1 [place], [place] [address] MCH (RBC) [Entitic mass] 29.2 25.6-32.2 pg Normal 06-11 [facility] (00 000) Comment: Performed By: #### CBCD1 ### # [facility] 1 [place], [place] [address] MCHC (RBC) [Mass/Vol] 32.6 31.6-34.8 % Normal 06-11-20 20 [facility] (52667) Comment: Performed By: #### CBCD1 ### # [facility] 1 [place], [place] [address] MCV (RBC) [Entitic vol] 89.5 79.4-94.8 fl Normal 2019 [facility] (00 000) Comment: Performed By: #### CBCD1 ### # [facility] 1 [place], [place] [address] Platelet mean volume (Bld) 11.1 9.4-12.3 fl Normal [facility] [Entitic vol] System (19312) Comment: Performed By: #### CBCD1 ### # [facility] 1 [place], [place] [address] Platelets (Bld) [#/Vol] 229 182-369 thou/cmm Normal 2019 [facility] (00 000) Comment: Performed By: #### CBCD1 ### # [facility] 1 [place], [place] [address] RBC (Bld) [#/Vol] 3.91 3.93-5.22 mil/cmm Low 06-11-[address] [facility] (53026) Comment: Performed By: #### CBCD1 ### # [facility] 1 [place], [place] [address] RDW SD 42.5 36.4-46.3 fl Normal 06-11-2020 [facility] (58785) Comment: Performed By: #### CBCD1 ### # [facility] 1 [place], [place] [address] WBC (Bld) [#/Vol] 6.54 3.98-10.04 thou/cmm Normal 06-11-2020 [facility] (00 000) Comment: Performed By: #### CBCD1 ### # [facility] 1 [place], [place] [address] case managem on CASE MANAGEM HNO ID: [id number] Normal 06-11-20 [facility] Author: Britni PickardRn) VIN Grimaldo [facility] Service: Care Management ([id number]) Author Type: Registered Nurse Type: Care Mgt [...] 11, 2020 TIME: 9:10 AM PAGER/CONTACT #: [phone] anes preop on 06-11 ANES PREOP HNO ID: [id number] Normal 06-11-2020 [facility] Author: Ruben [facility] Service: Anesthesiology ([id number]) Author Type: Physician Type: Anesthesia PreOp Filed: [...] Benign liver cyst 05/24/2010 CT scan at [facility] 11/2009 and 04/2010 showe 4 mm increase in size . No pain. No elevated LFTs on 03/11/2010. - Calculus of kidney 05/17/[address] Nicolas: Hospitalized age 20, and again later -- no procedures so far ([facility], most, 1995 [facility]) - Cancer (HCC) - Diverticulosis - Dysmenorrhea [...] Approx. 3 cigarettes daily-1 pack every w kaw Substance Use Topics - Alcohol use: Yes [...] INTRAVENOUS q 3 H PRN Nigel (Res) Sampson 1 mg at 06/11/20 0536 - [MAR Hold due to Transfer] NaCl 0.9% iv infusion 125 mL/hr INTRAVENOUS CONTINUOUS Nigel (Res) Sampson 125 mL/hr at 06/10/20 2248 1 25 [...] June 11, 2020 TIME: 9:49 AM CSN: [id number] anes post on 06-11 ANES POST HNO ID: [id number] Normal 06-11-2020 [facility] Author: Edwin Sesay [place] ([id number]) Service: Anesthesiology Author Type: Physician Type: Anesthesia [...] #: progress on 2020-05 PROGRESS HNO ID: [id number] Normal 06-10-2020 [facility] Author: Mer PickardRnJoao Bejarano RN [place] ([id number]) Service: Nursing Author Type: Registered Nurse Type: [...] resident Kimmie was notified. PROGRESS HNO ID: [id number] Normal 06-10-2020 [facility] Author: Kimmie Jennings [place] ([id number]) Service: General Surgery Author Type: Resident Type: [...] questions or concerns Mon-Fri 6a-5p please page [phone]. After 5pm and on Weekends and Holidays, please page [phone]. SUBJECTIVE: NAEON. Afebrile. Patient resting in bed [...] 0659 06/10/20 0700 - 06/11/20 0659 Shift 7887-2598 1614-6793 5634-0789 24 Hour Total 8540-9874 4533-4560 5661-5774 24 Hour Total INTAKE PO 994 914 9104 PO 028 018 9725 Shift Total 615 338 2302 OUTPUT Urine Urine Not Saved. 2 x [...] questions or concerns Thu-Thu 6a-5p please page [phone]. After 5pm and on Weekends and Holidays, please page [phone] if in ICU or [phone] if on RNF. PROGRESS HNO ID: [id number] Normal 06-10-2020 [facility] Medical Author: Mer PickardRnJoao Bejarano RN [place] ([id number]) Service: Nursing Author Type: Registered Nurse Type: [...] Phosphate [Mass/Vol] 4.2 2.7-4.8 mg/dL Normal 0 [facility] (93618) Comment: Performed By: #### CBCD1 ### # [address] [address] magnesium blood on 2020-06-10 Magnesium [Mass/Vol] 1.8 1.7-2.3 mg/dL Normal 0 [facility] (92114) Comment: Performed By: #### CBCD1 ### # [address] [address] coronavirus 2019 on 2020-06-10 COVID 19 Result REMOTE ADVISOR Negative CORNEG Normal 06-10-2020 [facility] (65039) Comment: Result Comment: Negative for COVID19 (SARS CoV2) by PCR. This test was developed and its performance characteristics determined by [facility] [place]. This test has bee n authorized by [...] issued on November 12, 2019. Performing Laboratory: [facility] [address] [place] [address] Performed By: #### CBCD1 ### # [address] [address] basic metabolic panel on 2020-06-10 Anion gap [Moles/Vol] 10 9-18 mmol/L Normal 06-10-20 20 [facility] (15280) Comment: Performed By: #### CBCD1 ### # [address] [address] Calcium [Mass/Vol] 9.2 8.5-10.2 mg/dL Normal 06-10-2020 [facility] (50735) Comment: Performed By: #### CBCD1 ### # [facility] 1 [place], [place] [address] Chloride [Moles/Vol] 102 97-105 mmol/L Normal 0 [facility] (98019) Comment: Performed By: #### CBCD1 ### # [facility] 1 [place], [place] [address] CO2 Blood 27 22-30 mmol/L Normal 06-10-2020 [facility] (33878) Comment: Performed By: #### CBCD1 ### # [facility] 1 [place], [place] [address] Creatinine [Mass/Vol] 0.90 0.58-0.96 mg/dL Normal 06-10-20 20 [facility] (00 000) Comment: Performed By: #### CBCD1 ### # [facility] 1 [place], [place] [address] Glucose [Mass/Vol] 105 74-99 mg/dL High 06-10-2020 [facility] (90459) Comment: Result Comment: The [place] Diabetes Association (ADA) provides guidance for cutoff [...] Standards of Medical Care in Diabetes 2016; [place] [employer]. Diabetes Care. 2016;39(Suppl 1). Performed By: #### CBCD1 ### # [facility] 1 [place], [place] [address] Potassium [Moles/Vol] 3.7 3.7-5.1 mmol/L Normal 06-10-20 [facility] (00 000) Comment: Performed By: #### CBCD1 ### # [facility] 1 [place], [place] [address] Sodium [Moles/Vol] 139 136-144 mmol/L Normal 06-10-2020 [facility] (78440) Comment: Performed By: #### CBCD1 ### # [facility] 1 [place], [place] [address] Urea nitrogen [Mass/Vol] 8 7-21 mg/dL Normal 06-10 [facility] (27082) Comment: Performed By: #### CBCD1 ### # [facility] 1 [place] [id number] allied health on 03-06-27 ALLIED HNO ID: [id number] Normal 06-10-2020 [facility] Author: Chaplain Suarez (Chaplain) General Service: Spiritual Care Medical Author Type: Appeals Analyst Center Type: [facility] ([id number]) Filed: 06/10/2020 7:39 PM Note Text: SPIRITUALCARE Spiritual Care Visit- Brief Note Name: Sally Mcgregor Date: June 10, 2020 Notes: Pre-surgery Patient Nothing needed tonight. Appeals Analyst Signature: Chaplain Erick To contact the Spiritual Care Department: Please call [phone] or Page the On-Call Appeals Analyst at [phone] Thank you for the opportunity to be of service. This is an electronically created document. IF PRINTED, PLEASE DO NOT REMOVE FROM THE CHART OR MODIFY MA INTED COPY. progress on 2020-05 PROGRESS HNO ID: [id number] Normal 06-09-2020 [place] Author: Kimmie Jennings General Service: General Surgery Medical Author Type: Resident Center Type: Progress Notes ([id number]) Filed: 06/09/2020 7:14 AM Note Text: Attestation [...] questions or concerns Thu-Thu 6a-5p please page [phone]. After 5pm and on Weekends and Holidays, please page [phone]. SUBJECTIVE: NAEON. Afebrile. Patient resting in bed [...] - 06/09/20 0606/09/20699 - 06/10/20 0659 Shift 0841-0865 3536-4870 1878-9033 24 Hour Total 0887-2510 4846-1816 0282-8112 24 Hour Total INTAKE Shift Total OUTPUT [...] (TYLENOL) 975 mg ORAL q 6 H MA N - oxyCODONE IR 5-10 mg tab(s) [...] in ICU or 2175 if on RNF. hemogram on 2020-05 Erythrocyte distribution 13.2 11.7-14.4 % Normal 06-09 [facility] width (RBC) [Ratio] System (69455) Comment: Performed By: #### GFR #### [address] [address] Hematocrit (Bld) [Volume 33.7 34.1-44.9 % Low 06-09 [facility]] System (00 000) Comment: Performed By: #### GFR #### [facility] 1 [place], [place] [address] Hemoglobin (Bld) [Mass/Vol] 10.6 11.2-15.7 g/dL Low [facility] (00 000) Comment: Performed By: #### GFR #### [place] [address] MCH (RBC) [Entitic mass] 28.8 25.6-32.2 pg Normal 06-09 [facility] (00 000) Comment: Performed By: #### GFR #### [place] [address] MCHC (RBC) [Mass/Vol] 31.5 31.6-34.8 % Low 06-09-20 20 [facility] (57430) Comment: Performed By: #### GFR #### [place] [address] MCV (RBC) [Entitic vol] 91.6 79.4-94.8 fl Normal 2019 [facility] (00 000) Comment: Performed By: #### GFR #### [place] [address] Platelet mean volume (Bld) 11.6 9.4-12.3 fl Normal [facility] [Entitic vol] System (60696) Comment: Performed By: #### GFR #### [place] [id number] Platelets (Bld) [#/Vol] 199 182-369 thou/cmm Normal 2019 [facility] (00 000) Comment: Performed By: #### GFR #### [place] [address] RBC (Bld) [#/Vol] 3.68 3.93-5.22 mil/cmm Low 06-09-2020 [facility] (25544) Comment: Performed By: #### GFR #### [place] [address] RDW SD 43.9 36.4-46.3 fl Normal 06-09-2020 [facility] (51724) Comment: Performed By: #### GFR #### [facility] 1 [place], [place] [address] WBC (Bld) [#/Vol] 6.47 3.98-10.04 thou/cmm Normal 06-09-2020 [facility] (00 000) Comment: Performed By: #### GFR #### [facility] 1 [place], [place] [address] basic metabolic panel on 2020-06-09 Anion gap [Moles/Vol] 11 9-18 mmol/L Normal 06-09-20 20 [facility] (16052) Comment: Performed By: #### GFR #### [facility] 1 [place], [place] [address] Calcium [Mass/Vol] 8.8 8.5-10.2 mg/dL Normal 06-09-2020 [facility] (40608) Comment: Performed By: #### GFR #### [facility] 1 [place], [place] [address] Chloride [Moles/Vol] 106 97-105 mmol/L High 0 [facility] (42224) Comment: Performed By: #### GFR #### [facility] 1 [place], [place] [address] CO2 Blood 24 22-30 mmol/L Normal 06-09-2020 [facility] (82278) Comment: Performed By: #### GFR #### [facility] 1 [place], [place] [address] Creatinine [Mass/Vol] 0.82 0.58-0.96 mg/dL Normal 06-09-20 20 [facility] (00 000) Comment: Performed By: #### GFR #### [facility] 1 [place], [place] [address] Glucose [Mass/Vol] 84 74-99 mg/dL Normal 06-09-2020 [facility] (09129) Comment: Result Comment: The [place] Diabetes Association (ADA) provides guidance for cutoff [...] Standards of Medical Care in Diabetes 2016; [place] [employer]. Diabetes Care. 2016;39(Suppl 1). Performed By: #### GFR #### [facility] 1 [place], [place] [address] Potassium [Moles/Vol] 3.8 3.7-5.1 mmol/L Normal 06-09-20 [facility] (00 000) Comment: Performed By: #### GFR #### [address] [address] Sodium [Moles/Vol] 141 136-144 mmol/L Normal 06-09-2020 [facility] (65022) Comment: Performed By: #### GFR #### [address] [address] Urea nitrogen [Mass/Vol] 9 7-21 mg/dL Normal 06-09 [facility] (16630) Comment: Performed By: #### GFR #### [address] [address] protime on INR Coag (PPP) [Relative 1.07 0.90-1.30 {INR} Normal 06-08 [facility] time] System (00 000) Comment: Result Comment: Vitamin K An tagonist (VKA) Therapeutic Range: INR 2 to 3 (Target INR of 2.5) Note: For patients treated w ith VKA drugs, such as warfarin, the [place] [employer] 2012 Guideline recommends a therapeutic INR range of 2 to 3 (target INR of 2.5). This recommendation includes high -risk patients with antiphospholipid syndrome with previous arter ial or venous thromboembolism, current-generation mechanica l or bioprosthetic aortic heart valve replacement. Note: Patients with mechanical drafter al aortic valve replacement and additional risk factors for thromboembolic events (atrial fibrillation, previous throm boembolism, LV dysfunction, hypercoagulable conditions) or an older generation mechanical AVR (i.e., ball in-Cage) or any mechanical MVR should have a INR therapeutic range of 2 .5 to 3.5 target INR of 3). Magdalene GH, et al. Chest 2012 ; 141:7S-47S Calderon FERNÁNDEZ et al. [facility] 20 17; 70: 252-289 Performed By: #### GFR #### [facility] 1 [place], [place] [address] PT Coag (PPP) [Time] 11.1 9.7-13.0 sec Normal 0 [facility] (54226) Comment: Performed By: #### GFR #### [address] [address] phosphorous blood o n 2020-06-08 Phosphate [Mass/Vol] 3.3 2.7-4.8 mg/dL Normal 0 [facility] (19301) Comment: Performed By: #### GFR #### [address] [address] nursing prog on NURSING PROG HNO ID: [id number] Normal 06-08-20 20 [facility] Author: Garo Jackson RN [facility] Service: ? ([id number]) Author Type: Registered Nurse Type: Nursing Progress Note Filed: 06/08/2020 10:56 AM Note Text: Nursing Progress Note Patient Name: Sally Mcgregor Patient Location: [address]/[id number] Spoke with Doctor Dick regarding IV contrast allergy and th e need for steroid prep. This note was completed by: Garo Jackson RN mri panc/james wo/w ivcon on 2020-06-08 MRI PANC/JAMES WO/W Final Report Normal 0 [facility] IVCON DATE OF EXAM: Jun 08 2020 6:[address] [place] [address]30 - MRI PANC/JAMES WO/W IVCON / ([id number]) PROCEDURE REASON: Liver lesion, >1cm, US indeterminate, [...] x 8.0 cm . 2. Normal MRCP. Smash Piecer: PSCB Transcribe Date/Time: Jun 08 2020 7:48P Dictated by : ALICE ALCARAZ MD This examination was interpreted and the report reviewed and electronically signed by: ALICE ALCARAZ MD on Jun 08 2020 8:42PM EST mri 3d post processing on 2020-06-08 MRI 3D POST Final Report Normal 06-08-2020 Gabriela barboza General PROCESSING DATE OF EXAM: Jun 08 2020 [facility]D POST PROCESSING / ([id number]) PROCEDURE REASON: Abd pain, chronic, intermittent Physician [...] x 8.0 cm . 2. Normal MRCP. Smash Piecer: PSCAudrey Transcribe Date/Time: Jun 08 2020 7:48P Dictated by : ALICE ALCARAZ MD This examination was interpreted and the report reviewed and electronically signed by: ALICE ALCARAZ MD on Jun 08 2020 8:42PM EST magnesium blood on 2020-06-08 Magnesium [Mass/Vol] 2.0 1.7-2.3 mg/dL Normal 0 [facility] (37522) Comment: Performed By: #### LIP #### [place] [id number] lipase blood on Lipase Blood 31 16-61 U/L Normal 06-08-2020 [facility] (14626) Comment: Performed By: #### GFR #### [facility] 1 [place], [place] [address] history physical on 2020-06-08 HISTORY HNO ID: [id number] Normal 06-08-2020 [place] PHYSICAL Author: Chris Kurtz [facility] Service: General Surgery Medical Author Type: Resident Center Type: [facility] ([id number]) Filed: 06/08/2020 7:24 AM Note Text: Attestation signed by Mala Almendarez at 06/08/2020 7:09 PM Attending Note I personally saw and examined the patient. I reviewed the resident's note. I agree with the resident's assessment and plan with the [facility] wing revisions and/or additions: Admit for symptomatic hepatic cyst. Plan for cyst fenestrati on on Thursday. Signature: Mala Almendarez MD Date: 06/08/2020 Time: 7:09 PM HISTORY AND PHYSICAL EXAMINATION SERVICE DATE: 06/08/2020 SERVICE TIME: 7:12 AM Subjective CHIEF COMPLAINT: Abdominal Pain HPI: 39 year old female [facility] with [facility] pain and a known history of hepatic cysts with rec urrent pancreatitis. Her last admission was for pancreatitis, in [facility] she had imaging showing increasing size of [...] Benign liver cyst 05/24/2010 CT scan at [facility] 11/2009 and 04/2010 showe 4 mm increase in size . No pain. No elevated LFTs on 03/11/2010. - Calculus of kidney 05/17/[address] Nicolas: Hospitalized age 20, and again later -- no procedures so far ([facility], most, [facility]) - Cancer (HCC) - Diverticulosis - Dysmenorrhea [...] removed - TOTAL ABDOM HYSTERECTOMY 08/31/06 Hysterectomy, [facility] H[facility] Problem Relation Age of [...] Approx. 3 cigarettes daily-1 pack every w kaw Substance Use Topics - Alcohol use: Yes [...] in the last 72 hours. Invalid input(s): [facility] Diagnostic tests reviewed for today's visit: [...] Albumin [Mass/Vol] 4.7 3.9-4.9 g/dL Normal 06-08-2020 [facility] (95232) Comment: Performed By: #### GFR #### [address] [address] ALP [Catalytic activity/Vol] 94 34-123 U/L Normal 0 06-08-2020 [facility] (00 000) Comment: Performed By: #### GFR #### [address] [address] ALT [Catalytic activity/Vol] 17 7-38 U/L Normal 0 06-08-2020 [facility] (00 000) Comment: Performed By: #### GFR #### [address] [address] AST [Catalytic activity/Vol] see below 13-35 Normal 0 06-08-2020 [facility] (00 000) Comment: Result Comment: Unable to as say. Specimen Hemolyzed Performed By: #### GFR #### [address] [address] Bilirubin [Mass/Vol] 0.3 0.2-1.3 mg/dL Normal 0 [facility] (74118) Comment: Performed By: #### GFR #### [facility] 1 [place], [place] [address] Bilirubin [Mass/Vol] see below 0.0-0.2 Normal 0 [facility] (00 000) Comment: Result Comment: Unable to as say. Specimen Hemolyzed Performed By: #### GFR #### [facility] 1 [place], [place] [address] Protein [Mass/Vol] 7.8 6.3-8.0 g/dL Normal 06-08-2020 [facility] [facility] ([address]377) Comment: Performed By: #### GFR #### [facility] 1 [place], [place] [address] hemogram on 2020-05 Erythrocyte distribution 13.3 11.7-14.4 % Normal 06-08 [facility] width (RBC) [Ratio] System (84435) Comment: Performed By: #### LIP #### [facility] 1 [place], [place] [address] Hematocrit (Bld) [Volume 38.1 34.1-44.9 % Normal 06-08 [facility] fraction] System (00 000) Comment: Performed By: #### LIP #### [address] [address] Hemoglobin (Bld) 11.8 11.2-15.7 g/dL Normal 06-08-2020 [facility] [Mass/Vol] System (0 0000) Comment: Performed By: #### LIP #### [facility] 1 [place], [place] [address] MCH (RBC) [Entitic mass] 28.4 25.6-32.2 pg Normal 06-08 [facility] (00 000) Comment: Performed By: #### LIP #### [address] [address] MCHC (RBC) [Mass/Vol] 31.0 31.6-34.8 % Low 06-08-20 20 [facility] ([address]609) Comment: Performed By: #### LIP #### [facility] 1 [place], [place] [address] MCV (RBC) [Entitic vol] 91.8 79.4-94.8 fl Normal 2019 [facility] (00 000) Comment: Performed By: #### LIP #### [facility] 1 [place] [id number] Platelet mean volume (Bld) 11.6 9.4-12.3 fl Normal [facility] [Entitic vol] System (92934) Comment: Performed By: #### LIP #### [facility] 1 [place] [id number] Platelets (Bld) [#/Vol] 230 182-369 thou/cmm Normal 2019 [facility] (00 000) Comment: Performed By: #### LIP #### [facility] 1 [place] [id number] RBC (Bld) [#/Vol] 4.15 3.93-5.22 mil/cmm Normal 06-08-2020 [facility] (00 000) Comment: Performed By: #### LIP #### [facility] 1 [place] [id number] RDW SD 44.9 36.4-46.3 fl Normal 06-08-2020 [facility] ([address]150) Comment: Performed By: #### LIP #### [facility] 1 [place], [place] [address] WBC (Bld) [#/Vol] 7.30 3.98-10.04 thou/cmm Normal 06-08-2020 [facility] (00 000) Comment: Performed By: #### LIP #### [facility] 1 [place] [id number] case mgt init asses on 2020-06-08 CASE MGT INIT HNO ID: [id number] Normal 020 [facility] Author: Britni (Rn) [facility] Service: Care Management ([id number]) Author Type: Registered Nurse Type: Care Mgt Initial Assessment Filed: 06/08/2020 11:00 AM Note Text: CARE MANAGEMENT: ASSESSMENT AND DISCHARGE PLAN SERVICE DATE: June 08, 2020 SERVICE TIME: 10:50 AM PRIMARY CARE PHYSICIAN: Marcelino Mejia MD (Confirmed with patient) ADMISSION STATUS: Inpatient Needs Prior to Discharge: Pharmacy Bedside Delivery MEDICAL: [facility] MEDICAID 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 Stated Goals: To return home to life as it was Health Insurance: [facility] Issues Impacting Discharge Plan: Uncontrolled Uncontrolled: History [...] completed Advance Directive: Current Advance Directive: None Billiard Parlor Manager Attempted to Assist with AD Completion: Yes [...] Patient Currently Receive Any Community Services or [facility] Care?: None Equipment Prior to Admission: None [...] Completely I feel financially burdened by my dxn-jq-ksummz expenses for my prescription medication:: 0 - Disagree Completely Risk Score: 0 Patient is categorized as: Low risk < 2 Are you interested in bedside delivery of your medications? Yes Is Patient Psychosocially Complex?: No ASSESSMENT AND PLAN: Medical Needs: Medical Needs: Two or more chronic diseases Psychosocial Needs: Psychosocial Needs: None FREEDOM OF CHOICE EXPLAINED: [place] of Choice Given: No Reason Not Given: [...] 08, 2020 TIME: 10:50 AM PAGER/CONTACT #: [phone] basic metabolic panel on 2020-06-08 Anion gap [Moles/Vol] 11 9-18 mmol/L Normal 06-08-20 [facility] (07425) Comment: Performed By: #### LIP #### [address] [address] Calcium [Mass/Vol] 9.6 8.5-10.2 mg/dL Normal 06-08-2020 [facility] (15001) Comment: Performed By: #### LIP #### [address] [address] Chloride [Moles/Vol] 104 97-105 mmol/L Normal 0 [facility] (90190) Comment: Performed By: #### LIP #### [facility] 1 [place], [place] [address] CO2 Blood 25 22-30 mmol/L Normal 06-08-2020 [facility] (05286) Comment: Performed By: #### LIP #### [facility] 1 [place], [place] [address] Creatinine [Mass/Vol] 0.80 0.58-0.96 mg/dL Normal 06-08-20 [facility] (00 000) Comment: Performed By: #### LIP #### [facility] 1 [place], [place] [address] Glucose [Mass/Vol] 91 74-99 mg/dL Normal 06-08-2020 [facility] (65839) Comment: Result Comment: The [place] Diabetes Association (ADA) provides guidance for cutoff [...] Standards of Medical Care in Diabetes 2016; [place] Diabetes Association. Diabetes Care. 2016;39(Suppl 1). Performed By: #### LIP #### [facility] 1 [place], [place] [address] Potassium [Moles/Vol] 3.7 3.7-5.1 mmol/L Normal 06-08-20 20 [facility] (00 000) Comment: Performed By: #### LIP #### [facility] [address] [place], [place] [address] Sodium [Moles/Vol] 140 136-144 mmol/L Normal 06-08-2020 [facility] (77677) Comment: Performed By: #### LIP #### [facility] 1 [place], [place] [address] Urea nitrogen [Mass/Vol] 13 7-21 mg/dL Normal 06-08 [facility] (97212) Comment: Performed By: #### LIP #### [facility] 1 [place] [id number] allied health on 03-06-25 ALL[facility] HNO ID: [id number] Normal 020 [facility] Author: Deepa (Rt) [facility] ([id number]) Service: Radiology Author Type: Ict Customer Support Officer Type: Allied Health Filed: 06/08/2020 7:02 PM Note Text: Spoke to Garo (RN), in regards to her itching and scratching after the MRI was completed. Garo informed me that she had been itching an d scratching all day. Garo came down and gave the patient medication for the itching and took her back to the room. Kelley Noriega [facility] HNO ID: [id number] Normal 020 [facility] Author: Deepa Mcintosh) [facility] ([id number]) Service: Radiology Author Type: Ict Customer Support Officer Type: Allied Health Filed: 06/08/2020 5:56 PM [...] TIME: 5:53 PM ALLIED HEALTH HNO ID: [id number] Normal 020 [facility] Author: Deepa (Rt) [facility] ([id number]) Service: Radiology Author Type: Ict Customer Support Officer Type: Allied Health Filed: 06/08/2020 4:21 PM Note Text: Called RN to get MRI order changed to w/wo per radiology pro tocol. Patient is not listed as allergy to gadolinium and creat is WNL. Mira l schedule STAT MRI as soon as order is changed activated ptt on 03-06-25 aPTT Coag (Bld) [Time] 30.5 23.0-32.4 sec Normal 020 [facility] (00 000) Comment: Result Comment: [...] AP TT reagent in use throughout the [facility]. Performed By: #### GFR #### [facility] 1 [place] [address] hosp on 2020-06-07 HOSP Patient:Sally Mcgregor Normal 05-16 [facility] MRN: General Height:5' 1(1.549 m) Medical Weight:197 lb 9.6 oz (89.631 kg) Center Outpatient Medications as of 06/11/20: (11531) prazosin (MINIPRESS) 1 mg cap hyoscyamine (LEVSIN) [...] the resident's assessment and plan with the [facility] revisions and/or additions: Admit for symptomatic hepatic cyst. Plan for cyst fenestrati on on Thursday. Signature: Mala Almendarez MD Date: 06/08/2020 Time: 7:09 PM HISTORY AND PHYSICAL EXAMINATION SERVICE DATE: 06/08/2020 SERVICE TIME: 7:12 AM Subjective CHIEF COMPLAINT: Abdominal Pain HPI: 39 year old female presents as a direct adm ission to [facility] with abdominal pain and a known history [...] Benign liver cyst 05/24/2010 CT scan at [facility] 11/2009 and 04/2010 showe 4 mm increase in size . No pain. No elevated LFTs on 03/11/2010. - Calculus of kidney 05/17/[address] Nicolas: Hospitalized age 20, a nd again later -- no procedures so far ([facility], [facility], 1995 [facility]) - Cancer (HCC) - Diverticulosis - Dysmenorrhea [...] removed - TOTAL ABDOM HYSTERECTOMY 08/31/06 Hysterectomy, [facility] FAMILY H[facility]ORY Problem Relation Age of [...] Approx. 3 cigarettes daily-1 pack every w kaw Substance Use Topics - Alcohol use: Yes [...] questions or concerns Thu-Thu 6a-5p please page [phone]. After 5pm and on Weekends an d Holidays, please page [phone] if in ICU or [phone] if on RNF. 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 e Care?: None Equipment Prior to [...] Completely I feel financially burdened by my lan-tp-kucdzt expens es for my prescription medication:: 0 - Disagree Completely Risk Score: 0 Patient is categorized as: Low risk < 2 Are you interested in bedside delivery of your medications? Yes Is Patient Psychosocially Complex?: No ASSESSMENT AND PLAN: Medical Needs: Medical Needs: Two or more chronic diseases Psychosocial Needs: Psychosocial Needs: None FREEDOM OF CHOICE EXPLAINED: [place] of Choice Given: No Reason Not Given: [...] needs. SIGNATURE: Britni Grimaldo RN PATIENT NAME: Slaly james DATE: June 08, 2020 TIME: 10:50 AM PAGER/CONTACT #: [phone] Jasmine Chavez, RN 06/08/2020 10:56 AM Signed Nursing Progress Note Patient Name: Sally Mcgregor Patient Location: [place] [address] [address] Spoke with Doctor Jennings regarding IV con [...] soon as order is changed RT Masoud, Aisle50 06/08/2020 5:56 PM Signed Radiology Service Progress [...] questions or concerns Thu-Thu 6a-5p please page [phone]. After 5pm and on Weekends and Holidays, please page [phone]. SUBJECTIVE: NAEON. Afebrile. Patient resting in bed [...] 06/08/20699 - 06/09/2065806/09/20699 - 06/10/20 0659 Shift 4009-4290 0442-3645 23 00-0659 24 Hour Total 4405-7349 9488-9298 2640-5281 24 Hour Total INTAKE Shift Total OUTPUT [...] (TYLENOL) 975 mg ORAL q 6 H MA N - oxyCODONE IR 5-10 mg tab(s) [...] questions or concerns Thu-Thu 6a-5p please page [phone]. After 5pm and on Weekends an d Holidays, please page [phone] if in ICU or [phone] if on RNF. Mer Bejarano, RN, RN [...] questions or concerns Mon-Fri 6a-5p please page [phone]. After 5pm and on Weekends and Holidays, please page [phone]. SUBJECTIVE: NAEON. Afebrile. Patient resting in bed [...] - 06/10/20 0606/10/20699 - 06/11/20 0659 Shift 4313-5405 9760-7413 23 00-0659 24 Hour Total 8930-0334 7827-3705 9843-1205 24 Hour Total INTAKE PO 377 177 2729 PO 813 694 1324 Shift Total 122 577 4469 OUTPUT Urine Urine Not Saved. 2 x [...] questions or concerns Thu-Thu 6a- please page [phone]. After 5pm and on Weekends an d [...] Spiritual Care Visit- Brief Note Name: Sally Mcgergor Date: June 10, 2020 Notes: Pre-surgery Patient Nothing needed tonight. Appeals Analyst Signature: Chaplain Erick To contact the Spiritual Care Department: Please call [phone] or Page the On-Call Appeals Analyst at pag er [phone] Thank you for the opportunity to be of service. This is an electronically created document. IF PRINTED, PLEASE DO NOT REMOVE FROM THE CHART OR MODIFY MA INTED COPY. Kimmie Jennings DO 06/11/2020 7:03 AM Cosign Needed Elective General Surgery Progress Note SERVICE DATE: 06/11/2020 [facility] General Surgery Service Pager: For questions or concerns Thu-Thu 6a- please page [phone]. After 5pm and on Weekends and Holidays, [...] 06/10/20699 - 06/11/2065806/11/20699 - 06/12/20 0659 Shift 4262-8287 2588-9545 23 00-0659 24 Hour Total 0748-1665 8246-7803 5131-4706 24 Hour Total INTAKE PO 600 600 [...] questions or concerns Thu-Thu 6a-5p please page [phone]. After 5pm and on Weekends an d Holidays, please page [phone] if in ICU or [phone] if on RNF. Britni Grimaldo RN, RN [...] 11, 2020 TIME: 9:10 AM PAGER/CONTACT #: [phone] Ruben Thompson MD 06/11/2020 9:51 AM Signed [...] Benign liver cyst 05/24/2010 CT scan at [facility] 11/2009 and 04/2010 showe 4 mm increase in size . No pain. No elevated LFTs on 03/11/2010. - Calculus of kidney 05/17/[address] Nicolas: Hospitalized age 20, a nd again later -- no procedures so far ([facility], [facility], [facility]) - Cancer (HCC) - Diverticulosis - Dysmenorrhea [...] removed - TOTAL ABDOM HYSTERECTOMY 08/31/06 Hysterectomy, [facility] FAMILY HISTORY Problem Relation Age of [...] Approx. 3 cigarettes daily-1 pack every w kaw Substance Use Topics - Alcohol use: Yes [...] INTRAVENOUS q 3 H PRN Nigel (Res) Sampson 1 mg at 0536 - [MAR Hold [...] June 11, 2020 TIME: 9:49 AM CSN: [id number] Progress Notes ([facility]): Johnny Winn MD 06/06/2020 10:30 AM Signed Called Salyl. Discussed th e findings of EGD and [...] ysts. All questions answered. MD [facility]bek[facility] 06/06/2020 10:53 AM Signed Patient is calling back with additional questions after speaking with Dr. Winn today. Please call patient. cnpn on 2020-06-06 CNPN Telephone (GSTNOR) Normal 06-06-2020 [facility] SAMSALLY ([id number]) 1980 [facility] Date Time Provider Department ([id number]) 06/06/20 JOHNNY WINN GSTNOR During your visit [...] ysts. All questions answered. MD Rebekah Cunningham [facility] 06/06/2020 10:53 AM Signed Patient [...] Order(s):CONSULT TO ALLERGY/IMMUNOLOGY [ 9001] Order #: [id number]: 1 FUTURE Prescriptions as of 06/06/2020 Sig: [...] 06/06/20 progress on 2020-05 PROGRESS HNO ID: [id number] Normal 06-05-2020 [facility] Author: Mala sosa ([id number]) Service: ? Author Type: Physician Type: Progress [...] MD progress on 2020-05 PROGRESS HNO ID: [id number] Normal 06-01-2020 [facility] Author: Branden PickardNetwork Navigator) Amalia Mata ([id number]) Service: ? Author Type: Project Developer Type: Progress Notes Filed: 06/01/2020 12:42 PM Note Text: Patient has follow up with next Thursday for Pancreatitis. progress on 2020-05 PROGRESS HNO ID: [id number] Normal 05-31-2020 [facility] Author: Marcelino Mejia [facility] ([id number]) Service: ? Author Type: Physician Type: Progress Notes Filed: 05/31/2020 10:49 AM Note Text: Patient has a sr. manager and would work on getting h er back in with them. She has been seeing them for recurring pancreatit is and stomach issues. I have nothing further I can add to her care at this time. PROGRESS HNO ID: [id number] Normal 05-31-2020 [facility] Author: Branden (Network Navigator) Amalia [facility] ([id number]) Service: ? Author Type: Project Developer Type: Progress Notes Filed: 05/31/2020 8:49 AM [...] appointment. Thank you SUMMARY: Pt discharged from [facility] on May 29, 2020 Admitted for: Intractable nausea and vomitting Contact made with patient: Yes Hi my name is ANDRE Graham and I am calling from the [facility] on behalf of your PCP, Marcelino Mejia [...] to speak with a social work steam and gas turbine assembler to help give you support for any [...] I will send your request to a outsole scheduler who will contact and assist you [...] out to patient to assist with scheduling CERTIFIED SHORTHAND REPORTER: Patient Mira status is: Active account Thank [...] on 2020-05-31 CNPN Telephone (GSTNOR) Normal 05-31-2020 [facility] SALLY MCGREGOR ([id number]) 1980 [facility] Date Time Provider Department ([id number]) 05/31/20 JOHNNY WINN GSTNOR During your visit today, we recorded the following informati on about you: Pierce Sunil Cates 05/31/2020 2:37 PM Signed Patient call, said she was doing ok yesterday, today having epigastric abdominal pain, nausea and vomiting. Has appt [facility] Dr. Almendarez next week. Advised ER [...] 05/31/20 progress on 2020-05 PROGRESS HNO ID: [id number] Normal 05-30-2020 [facility] Author: Allie (Network Navigator) Skyler Mata ([id number]) Service: ? Author Type: Project Developer Type: Progress Notes Filed: 05/31/2020 8:49 AM Note Text: TRANSITIONAL CARE MANAGEMENT (TCM) COMMUNITY MONITORING PROG BRITTANI Provider Action/FYI: Message left for patient. Attempting to schedule TCM appoint ment SUMMARY: Pt discharged from [facility] on 05/29. Admitted for: intractable nausea and vomiting Contact made with patient: No - scheduled next outreach for next business day in the Track Pt Outreach section Outreach ended cnptoutreach on CNPTOUTREACH Patient Outreach (FAMPWS) Normal 0 05-30-2020 [facility] SALLY Martinez ([id number]) 1980 [facility] Date Time Provider Department ([id number]) 05/30/20 ALLIE CHOWDHURY (NETWORK NAVIGATOR)RAMA During your visit today, we recorded the following informati on about you: ANDRE Sorensen 05/31/2020 8:49 AM Signed TRANSITIONAL CARE MANAGEMENT (TCM) COMMUNITY MONITORING PROG BRITTANI Provider Action/FYI: Message left for patient. Attempting to schedule TCM appoint ment SUMMARY: Pt discharged from [facility] on 05/29. Admitted for: intractable nausea and vomiting Contact made with patient: No - scheduled next o [facility] for next day in the Track [...] appointment. Thank you SUMMARY: Pt discharged from [facility] on May 29, 2020 Admitted for: Intractable nausea and vomitting Contact made with patient: Yes Hi my name is ANDRE Graham and I am calling from the [facility] on behalf of your PCP, Marcelino Mejia [...] to speak with a social work steam and gas turbine assembler to help give you support for any [...] I will send your request to a outsole scheduler who will contact and assist you [...] out to patient to assist with scheduling CERTIFIED SHORTHAND REPORTER: Patient Mira status is: Active account Thank [...] 05/31/2020 10:49 AM Signed Patient has a sr. manager and would work on getting her back [...] Assessed Reason for Visit: Transition Of Care [0784] Cmt: milka, perlita 05/29. initi al outreach [...] 05/31/20 progress on 2020-05 PROGRESS HNO ID: [id number] Normal 05-29-2020 [facility] Author: Vickie Srivastava [facility] Service: Hospital Medicine Medical Author Type: Resident Center Type: Progress Notes ([id number]) Filed: 05/29/2020 2:51 PM Note Text: Attestation [...] PM: You may reach the House Medicine industrial design intern currently assigned to this patient by jack mahoney their pager number on the treatment team (they will be assigned as the i ntern or resident). It is the last four digits in the phone number be ginning with ([phone]). We encourage the use of [employer] Secure Chat. SUBJECTIVE HPI: 39 year old F PMHx idiopathic pancreatitis, hepatic cys ts presenting to the ED with intractable nausea and vomiting as well as RU Q abdominal pain for the past 3 days. States that she called her GI doct or Dr. Winn and he told her to come into the ED. She has a scope [facility] ed for 05/[address] Winn. [...] DAILY 05/25/201935 -- 05/25/201944 pneumatic compression stockings (mo,oh) VTE Prophylaxis: VTE prophylaxis appropriate GI Prophylaxis: Indicated due to chronic acid suppression th erapy as an outpatient Telemetry: no Disposition: Home Code Status: Not on file Plan of care discussed with: Provider, RN, Patient SIGNATURE: Vickie Srivastava MD PATIENT NAME: Sally shannon DATE: May 29, 2020 TIME: 1:53 PM plan of care on PLAN OF CARE HNO ID: [id number] Normal 05-29-20 [facility] Author: Felix Foster (Pharmacist) Center ([id number]) Service: Pharmacy Author Type: Pharmacist Type: Plan of Care Filed: 05/29/2020 2:49 PM Note Text: MEDICATION RECONCILIATION Patient Name:Marlen Mcgregor : 1980 Reconciliation: Yes All PILLOWCASE CLEANER medications addressed by LIP Additional comments: aggree with student note Allergies: ALLERGIES Allergen Reactions - Penicillins Rash - Cephalexin Itching - Chlorhexidine Rash Skin rash - Toradol [Ketorolac] Rash - Tramadol Rash - Asa [Salicylates] Other: See Comments ulcers - Contrast Dye [Iodin* Shortness of Breath - Ibuprofen GI Upset - Prednisone Other: See Comments makes agitated and mean Preferred Pharmacy: [facility] Current PILLOWCASE CLEANER Medications: Prior to Admission medications as of 05/29/20 0928 Medication Sig Last Dose Taking prazosin (MINIPRESS) 1 mg cap Take 1 mg by mouth daily at [facility]. Yes hyoscyamine (LEVSIN) 0.125 mg [...] 2:47 PM PLAN OF CARE HNO ID: [id number] [facility] 05-29-20 [facility] Author: Felix Foster (Pharmacist) [place] ([id number]) Service: Pharmacy Author Type: Pharmacist Type: Plan [...] CORADO May 29, 2020 2:50 PM Pager: [phone] 05/29/2020 2:50 PM Medication List START taking [...] Your Medications These medications [facility] [id number] [place] [address] - [address] [phone] [address] [address] [address] ? oxyCODONE IR 5 mg immediate release tablet PLAN OF CARE HNO ID: [id number] [facility] 05-29-20 [facility] Author: Felix Foster (Pharmacist) Center ([id number]) Service: Pharmacy Author Type: Pharmacist Type: Plan of Care Filed: 05/29/2020 2:47 PM Note Text: MEDICATION HISTORY Patient Name:Marlen Mcgregor : 1980 Source of history:Patient: Reliability of source: Appears re liable, clearly identified: Medication name, Medication frequency an d Timing of last dose and Pharmacy records: [facility] Pharmacy #[id number] in [place], [place] [phone] Medication Nonadherence Identified: No barriers noted The above information represents the best possible medicatio n history: Yes Additional comments: Confirmed with patient and pharmacist hanna t [facility] Pharmacy - Recent changes to medications outpatient from Dr. Winn, patient did not start Sucralfate and Promethazine prior to admission and only took 1 dose of Hyoscyamine prior to admission Yfuhz-ld-Ssgzmluux Medication List Adjustments: Medication Regimen Changes: Promethazine [...] Comments makes agitated and mean Preferred Pharmacy: [facility] Pharmacy #[id number] phone [phone] Current PILLOWCASE CLEANER Medications: Prior to Admission medications as of 05/29/20 0925 Medication Sig Last Dose Taking prazosin (MINIPRESS) 1 mg cap Take 1 mg by mouth daily at [facility]. Yes hyoscyamine (LEVSIN) 0.125 mg [...] stomach, 1/2 hr before meal. Maggi Hernandez (Environmental Monitoring Technician) May 29, 2020 9:14 AM mdrd gfr on 2020-05 GFR/1.73 sq M >60 >60mL/min/1.73m2 mL/min/{1.73_m2} Normal [facility] System non-blacks MDRD (000 00) (S/P/Bld) [Vol rate/Area] Comment: Result Comment: If the patie nt is , multiply the result by 1.210. Performed By: #### GFR #### [address] [address] hemogram on 2020-05 Erythrocyte distribution 13.2 11.7-14.4 % Normal 05-29 [facility] width (RBC) [Ratio] System (19918) Comment: Performed By: #### LIP #### [address] [address] Hematocrit (Bld) [Volume 36.1 34.1-44.9 % Normal 05-29 [facility] fraction] System (00 000) Comment: Performed By: #### LIP #### [address] [address] Hemoglobin (Bld) 11.5 11.2-15.7 g/dL Normal 05-29-2020 [facility] PasswordBox [Mass/Vol] System (0 0000) Comment: Performed By: #### LIP #### [address] [address] MCH (RBC) [Entitic mass] 29.0 25.6-32.2 pg Normal 05-29 [facility] (00 000) Comment: Performed By: #### LIP #### [address] [address] MCHC (RBC) [Mass/Vol] 31.9 31.6-34.8 % Normal 05-29-20 20 [facility] (01348) Comment: Performed By: #### LIP #### [facility] [address] [place], [place] [address] MCV (RBC) [Entitic vol] 90.9 79.4-94.8 fl Normal 2019 [facility] (00 000) Comment: Performed By: #### LIP #### [facility] 1 [place], [place] [address] Platelet mean volume (Bld) 10.9 9.4-12.3 fl Normal [facility] [Entitic vol] System (04221) Comment: Performed By: #### LIP #### [facility] 1 [place], [place] [address] Platelets (Bld) [#/Vol] 223 182-369 thou/cmm Normal 2019 [facility] (00 000) Comment: Performed By: #### LIP #### [facility] 1 [place], [place] [address] RBC (Bld) [#/Vol] 3.97 3.93-5.22 mil/cmm Normal 05-29-2020 [facility] (00 000) Comment: Performed By: #### LIP #### [facility] [address] [place], [place] [address] RDW SD 43.5 36.4-46.3 fl Normal 05-29-2020 [facility] (71458) Comment: Performed By: #### LIP #### [facility] [address] [place], [place] [address] WBC (Bld) [#/Vol] 5.88 3.98-10.04 thou/cmm Normal 05-29-2020 [facility] (00 000) Comment: Performed By: #### LIP #### [facility] [address] [place], [place] [address] consult on CONSULT HNO ID: [id number] Normal 05-29-2020 [facility] Author: Maria Luisa Joyner [facility] Service: Pain Management ([id number]) Author Type: Physician Type: Consults Filed: 05/29/2020 11:10 AM Note Text: SALLY MCGREGOR 39 year old PAIN CONSULTATION: Abdominal pain, history of idiopathic verdugo creatitis. 24 HOUR COMFORT MEDICATIONS: Tylenol x0 Benadryl 50 mg x 2 Phenergan 25 mg x 2 Oxycodone 10 mg x 3 Quetiapine 100 mg daily [place] prescription history Shows occasional use of opiates, [...] hepatic cysts, and no evidence of ac [place] pancreatitis with normal lipase, and CBC. At [...] (TYLENOL) 650 mg ORAL q 4 H MA N Johnny Winn - prazosin (MINIPRESS) 1 [...] Approx. 3 cigarettes daily-1 pack every w kaw Substance Use Topics - Alcohol use: Yes [...] gap [Moles/Vol] 11 9-18 mmol/L Normal 05-29-20 [facility] (28784) Comment: Performed By: #### LIP #### [facility] [address] [place], [place] [address] Calcium [Mass/Vol] 8.8 8.5-10.2 mg/dL Normal 05-29-2020 [facility] (22114) Comment: Performed By: #### LIP #### [facility] [address] [place], [place] [address] Chloride [Moles/Vol] 104 97-105 mmol/L Normal 0 [facility] (60125) Comment: Performed By: #### LIP #### [facility] [address] [place], [place] [address] CO2 Blood 23 22-30 mmol/L Normal 05-29-2020 [facility] (93969) Comment: Performed By: #### LIP #### [facility] [address] [place], [place] [address] Creatinine [Mass/Vol] 0.78 0.58-0.96 mg/dL Normal 05-29-20 [facility] (00 000) Comment: Performed By: #### LIP #### [facility] [address] [place], [place] [address] Glucose [Mass/Vol] 88 74-99 mg/dL Normal 05-29-2020 [facility] (02865) Comment: Result Comment: The [place] Diabetes Association (ADA) provides guidance for cutoff [...] Standards of Medical Care in Diabetes 2016; [place] Diabetes Association. Diabetes Care. 2016;39(Suppl 1). Performed By: #### LIP #### [facility] [address] [place], [place] [address] Potassium [Moles/Vol] 3.4 3.7-5.1 mmol/L Low 05-29-20 [facility] (89119) Comment: Performed By: #### LIP #### [facility] [address] [place] [address] Sodium [Moles/Vol] 138 136-144 mmol/L Normal 05-29-2020 [facility] (14746) Comment: Performed By: #### LIP #### [facility] [address] [place] [address] Urea nitrogen [Mass/Vol] 6 7-21 mg/dL Low 05-29 [facility] (25601) Comment: Performed By: #### LIP #### [facility] [address] [place] [address] surgical tissue exam on 2020-05-28 Surgical Tissue Test performed at [facility] Normal 05-28-2020 [facility] [address] [place] [address] ([id number]) NAME: SALLY MCGREGOR REQUESTING: JOHNNY WINN MD [...] 1 Comment: Performed By: #### LIP #### [facility] [address] [place] [address] pt ed on 2020-05-28 PT ED HNO ID: [id number] Normal 05-28-2020 [facility] Author: Flakita Ragland RN [facility] ([id number]) Service: Nursing Author Type: Registered Nurse Type: [...] Flakita Ragland RN PT ED HNO ID: [id number] [facility] 05-28-2020 [facility] Author: Flakita Ragland RN [place] ([id number]) Service: Nursing Author Type: Registered Nurse Type: [...] RN progress on 2020-05 PROGRESS HNO ID: [id number] [facility] 05-28-2020 [facility] Author: Vickie Beck [facility] Service: Hospital Medicine Medical Author Type: Resident Center Type: Progress Notes ([id number]) Filed: 05/28/2020 1:52 PM Note Text: Attestation [...] PM: You may reach the House Medicine industrial design intern currently assigned to this patient by findin g their pager number on the treatment team (they will be assigned as the i ntern or resident). It is the last four digits in the phone number be ginning with ([phone]). We encourage the use of [employer] Secure Chat. SUBJECTIVE HPI: 39 year old F PMHx idiopathic pancreatitis, hepatic cys ts presenting to the ED with intractable nausea and vomiting as well as RU Q abdominal pain for the past 3 days. States that she called her GI doct or Dr. Winn and he told her to come into the ED. She has a [facility] ed for 05/[address] Winn. [...] operative no on OPERATIVE NO HNO ID: [id number] Normal 05-28-20 [facility] Author: [facility] Service: Gastroenterology ([id number]) Author Type: Physician Type: Operative Report Filed: 05/28/2020 1:07 PM Note Text: OPERATIVE/PROCEDURE REPORT LOG ID: [id number] Surgery/Procedure Date: 05/28/2020 Incision/Procedure Start Time: 12:32 PM Incision Close/Procedure End Time: 1:00 PM Surgeon(s)/Proceduralist(s) and Ceiling Cleaner(s): Surgeon(s) and Role: * [facility] - Primary No Additional Staff Procedure(s): [...] PPI. nursing prog on NURSING HNO ID: [id number] Normal 05-28-2020 [employer] Author: Rupal (Rn) VIN [employer] General Service: [...] Erythrocyte distribution 13.2 11.7-14.4 % Normal 05-28 [facility] width (RBC) [Ratio] System (99792) Comment: Performed By: #### LIP #### [facility] [address] [place], [place] [address] Hematocrit (Bld) [Volume 32.2 34.1-44.9 % Low 05-28 [facility] System (00 000) Comment: Performed By: #### LIP #### [facility] [address] [place], [place] [address] Hemoglobin (Bld) [Mass/Vol] 10.1 11.2-15.7 g/dL Low [employer] [facility] (00 000) Comment: Performed By: #### LIP #### [facility] [address] [place], [place] [address] MCH (RBC) [Entitic mass] 28.5 25.6-32.2 pg Normal 05-28 [facility] (00 000) Comment: Performed By: #### LIP #### [facility] [address] [place], [place] [address] MCHC (RBC) [Mass/Vol] 31.4 31.6-34.8 % Low 05-28-20 20 [employer] [facility] (08875) Comment: Performed By: #### LIP #### [facility] [address] [place], [place] [address] MCV (RBC) [Entitic vol] 90.7 79.4-94.8 fl Normal 2019 [facility] (00 000) Comment: Performed By: #### LIP #### [facility] [address] [place] [address] Platelet mean volume (Bld) 10.7 9.4-12.3 fl Normal [facility] [Entitic vol] System (49587) Comment: Performed By: #### LIP #### [facility] 1 [place] [id number] Platelets (Bld) [#/Vol] 186 182-369 thou/cmm Normal 2019 [facility] (00 000) Comment: Performed By: #### LIP #### [facility] [address] [place] [address] RBC (Bld) [#/Vol] 3.55 3.93-5.22 mil/cmm Low 05-28-2020 [facility] (38731) Comment: Performed By: #### LIP #### [facility] [address] [place] [address] RDW SD 43.3 36.4-46.3 fl Normal 05-28-2020 [facility] (98245) Comment: Performed By: #### LIP #### [facility] [address] [place] [id number] WBC (Bld) [#/Vol] 6.36 3.98-10.04 thou/cmm Normal 05-28-2020 [facility] (00 000) Comment: Performed By: #### LIP #### [facility] [address] [place] [address] consult on CONSULT HNO ID: [id number] Normal 05-28-2020 [facility] Author: Ramone Albarado [facility] Service: Pain Management ([id number]) Author Type: Physician Type: Consults Filed: 05/28/2020 9:09 AM Note Text: SALLY MCGREGOR 39 year old PAIN CONSULTATION: Abdominal pain, history of idiopathic verdugo creatitis. 24 HOUR COMFORT MEDICATIONS: Oxycodone 10 mg x 3 Quetiapine 100 mg daily [place] prescription history Shows occasional use of opiates, [...] hepatic cysts, and no evidence of ac [place] pancreatitis with normal lipase, and CBC. At this time, not experiencing any fever, chills, sweats, he matemesis, hematochezia, additional GI, , constitutional, pulmonary, or other symptoms. Current Facility-Administered Medications Medication Dose Route Frequency Provider Last Rate Last Dose - oxyCODONE IR 10 mg tab(s) (ROXICODONE) 10 mg ORAL q 6 H MA N Maggi (Res) MD Mark 10 mg [...] (TYLENOL) 650 mg ORAL q 4 H MA N Eduar (Res) Metry - hyoscyamine (LEVSIN) [...] Approx. 3 cigarettes daily-1 pack every w kaw Substance Use Topics - Alcohol use: Yes [...] gap [Moles/Vol] 8 9-18 mmol/L Low 05-28-20 [facility] (13679) Comment: Performed By: #### LIP #### [facility] [address] [place] [address] Calcium [Mass/Vol] 7.2 8.5-10.2 mg/dL Low 05-28-2020 [facility] (72061) Comment: Performed By: #### LIP #### [facility] 1 [place], [place] [address] Chloride [Moles/Vol] 111 97-105 mmol/L High 0 [facility] (23127) Comment: Performed By: #### LIP #### [facility] [address] [place], [place] [address] CO2 Blood 22 22-30 mmol/L Normal 05-28-2020 [facility] (25238) Comment: Performed By: #### LIP #### [facility] [address] [place], [place] [address] Creatinine [Mass/Vol] 0.69 0.58-0.96 mg/dL Normal 05-28-20 [facility] (00 000) Comment: Performed By: #### LIP #### [facility] [address] [place], [place] [address] Glucose [Mass/Vol] 73 74-99 mg/dL Low 05-28-2020 [facility] (51222) Comment: Result Comment: The [place] Diabetes Association (ADA) provides guidance for cutoff [...] Standards of Medical Care in Diabetes 2016; [place] Diabetes Association. Diabetes Care. 2016;39(Suppl 1). Performed By: #### LIP #### [facility] 1 [place], [place] [address] Potassium [Moles/Vol] 2.9 3.7-5.1 mmol/L Low 05-28-20 [facility] (15286) Comment: Performed By: #### LIP #### [facility] [address] [place], [place] [address] Sodium [Moles/Vol] 141 136-144 mmol/L Normal 05-28-2020 [facility] (87544) Comment: Performed By: #### LIP #### [facility] [address] [place], [place] [address] Urea nitrogen [Mass/Vol] 5 7-21 mg/dL Low 05-28 [facility] (74548) Comment: Performed By: #### LIP #### [facility] [address] [place], [place] [address] anes preop on 05-28 ANES PREOP HNO ID: [id number] Normal 05-28-2020 [facility] Author: Delon Florence [facility] Service: Anesthesiology ([id number]) Author Type: Physician Type: Anesthesia PreOp Filed: [...] Benign liver cyst 05/24/2010 CT scan at [facility] 11/2009 and 04/2010 showe 4 mm increase in size . No pain. No elevated LFTs on 03/11/2010. - Calculus of kidney 05/17/[address] Nicolas: Hospitalized age 20, and again later -- no procedures so far ([facility], [facility], 1995 [facility]) - Cancer (HCC) - Diverticulosis - Dysmenorrhea [...] removed - TOTAL ABDOM HYSTERECTOMY 08/31/06 Hysterectomy, [facility] FAMILY H[facility]ORY Problem Relation Age of [...] Approx. 3 cigarettes daily-1 pack every w kaw Substance Use Topics - Alcohol use: Yes [...] 2 Other Medical Problems: None Chronic Beta Lziandro medication administered within 24 hours : N/A [...] May 28, 2020 TIME: 12:15 PM CSN: [id number] anes post on 0 -14 ANES POST HNO ID: [id number] Normal 05-28-2020 [facility] Author: Delon Duenas [place] ([id number]) Service: Anesthesiology Author Type: Physician Type: Anesthesia [...] 1001 progress on 2020-05 PROGRESS HNO ID: [id number] [facility] 05-27-2020 [facility] Author: Vickie Srivastava General Service: Hospital Medicine Medical Author Type: Resident Center Type: Progress Notes ([id number]) Filed: 05/27/2020 4:19 PM Note Text: Attestation signed by oRb Valladares at 05/27/2020 4:51 PM Attending Note [...] PM: You may reach the House Medicine industrial design intern currently assigned to this patient by findin g their pager number on the treatment team (they will be assigned as the i ntern or resident). It is the last four digits in the phone number be ginning with ([phone]). We encourage the use of [employer] Secure Chat. SUBJECTIVE HPI: 39 year old F PMHx idiopathic pancreatitis, hepatic cys ts presenting to the ED with intractable nausea and vomiting as well as RU Q abdominal pain for the past 3 days. States that she called her GI doct or Dr. Winn and he told her to come into the ED. She has a scope [facility] ed for 05/[address] Winn. [...] DAILY 05/25/201935 -- 05/25/201944 pneumatic compression stockings (mo,wy) VTE Prophylaxis: VTE prophylaxis appropriate GI Prophylaxis: Indicated due to chronic acid suppression th erapy as an outpatient Telemetry: no Disposition: Home Code Status: Not on file Plan of care discussed with: Provider, RN, Patient SIGNATURE: Vickie Srivastava MD PATIENT NAME: Sally shannon DATE: May 27, 2020 TIME: 1:53 PM plan of care on PLAN OF CARE HNO ID: [id number] Normal 05-27-20 [facility] Author: Joe Romero) [facility] Service: Gastroenterology ([id number]) Author Type: Physician Ceiling Cleaner Type: Plan of Care Filed: 05/27/2020 1:17 [...] (TYLENOL) 650 mg ORAL q 4 H MA N - oxyCODONE IR 10 mg tab(s) (ROXICODONE) 10 mg ORAL q 6 H MA N Objective PHYSICAL EXAM: VITALS:BP 119/74 Pulse [...] 27, 2020 TIME: 1:15 PM PAGER/CONTACT #: Hand Buffing Wheel Former Pager hemogram on 2020-05 Erythrocyte distribution 13.3 11.7-14.4 % Normal 05-27 [employer] width (RBC) [Ratio] System (96516) Comment: Performed By: #### LIP #### [facility] 1 [place], [place] [address] Hematocrit (Bld) [Volume 35.9 34.1-44.9 % Normal 05-27 [employer] fraction] System (00 000) Comment: Performed By: #### LIP #### [facility] [address] [place], [place] [address] Hemoglobin (Bld) 11.3 11.2-15.7 g/dL Normal 05-27-2020 [employer] [facility] [Mass/Vol] System (0 0000) Comment: Performed By: #### LIP #### [facility] [address] [place], [place] [address] MCH (RBC) [Entitic mass] 29.1 25.6-32.2 pg Normal 05-27 [facility] (00 000) Comment: Performed By: #### LIP #### [facility] [address] [place], [place] [address] MCHC (RBC) [Mass/Vol] 31.5 31.6-34.8 % Low 05-27-20 20 [facility] (17620) Comment: Performed By: #### LIP #### [address] [address] MCV (RBC) [Entitic vol] 92.5 79.4-94.8 fl Normal 2019 [facility] (00 000) Comment: Performed By: #### LIP #### [facility] 1 [place], [place] [address] Platelet mean volume (Bld) 10.6 9.4-12.3 fl Normal [facility] [Entitic vol] System (33954) Comment: Performed By: #### LIP #### [facility] 1 [place], [place] [address] Platelets (Bld) [#/Vol] 197 182-369 thou/cmm Normal 2019 [facility] (00 000) Comment: Performed By: #### LIP #### [facility] 1 [place] [id number] RBC (Bld) [#/Vol] 3.88 3.93-5.22 mil/cmm Low 05-27-2020 [facility] (67318) Comment: Performed By: #### LIP #### [facility] [address] [place] [address] RDW SD 44.6 36.4-46.3 fl Normal 05-27-2020 [facility] (30317) Comment: Performed By: #### LIP #### [facility] 1 [place], [place] [address] WBC (Bld) [#/Vol] 6.15 3.98-10.04 thou/cmm Normal 05-27-2020 [facility] (00 000) Comment: Performed By: #### LIP #### [facility] 1 [place] [id number] basic metabolic panel on 2020-05-27 Anion gap [Moles/Vol] 10 9-18 mmol/L Normal 05-27-20 [facility] (44633) Comment: Performed By: #### LIP #### [facility] [address] [place] [id number] Calcium [Mass/Vol] 8.6 8.5-10.2 mg/dL Normal 05-27-2020 [facility] (32710) Comment: Performed By: #### LIP #### [facility] [address] [place] [id number] Chloride [Moles/Vol] 106 97-105 mmol/L High 0 [facility] (07825) Comment: Performed By: #### LIP #### [facility] [address] [place], [place] [address] CO2 Blood 24 22-30 mmol/L Normal 05-27-2020 [facility] (77655) Comment: Performed By: #### LIP #### [facility] [address] [place], [place] [address] Creatinine [Mass/Vol] 0.87 0.58-0.96 mg/dL Normal 05-27-20 [facility] (00 000) Comment: Performed By: #### LIP #### [facility] [address] [place], [place] [address] Glucose [Mass/Vol] 82 74-99 mg/dL Normal 05-27-2020 [facility] (40429) Comment: Result Comment: The [place] Diabetes Association (ADA) provides guidance for cutoff [...] Standards of Medical Care in Diabetes 2016; [place] Diabetes Association. Diabetes Care. 2016;39(Suppl 1). Performed By: #### LIP #### [facility] [address] [place], [place] [address] Potassium [Moles/Vol] 3.5 3.7-5.1 mmol/L Low 05-27-20 20 [facility] (92439) Comment: Performed By: #### LIP #### [facility] [address] [place], [place] [address] Sodium [Moles/Vol] 140 136-144 mmol/L Normal 05-27-2020 [facility] (72375) Comment: Performed By: #### LIP #### [facility] [address] [place], [place] [address] Urea nitrogen [Mass/Vol] 7 7-21 mg/dL Normal 05-27 [facility] (11196) Comment: Performed By: #### LIP #### [facility] [address] [place], [place] [address] progress on 2020-05 PROGRESS HNO ID: [id number] Normal 05-26-2020 [facility] Author: Vickie Srivastava [facility] Service: Hospital Medicine Medical Author Type: Resident Center Type: Progress Notes ([id number]) Filed: 05/26/2020 2:11 PM Note Text: Attestation signed by Oh Arreaga at 05/26/2020 2:23 PM Attending Note I personally saw and examined the patient on 05/26/20. I rev iewed the resident's note. I agree with the resident's assessment and plan unless otherwise noted. Signature: Oh Arreaga DO Date: 05/26/2020 Time: 2:23 PM Pager: [phone] HOUSE MEDICINE SERVICE PROGRESS NOTE SERVICE DATE: May 26, 2020 SERVICE TIME: 1:53 PM NIGHT AND WEEKEND COVERAGE: From 6 AM to 5 PM: You may reach the House Medicine industrial design intern currently assigned to this patient by findin g their pager number on the treatment team (they will be assigned as the i ntern or resident). It is the last four digits in the phone number be ginning with ([phone]). We encourage the use of [employer] Secure Chat. SUBJECTIVE HPI: 39 year old F PMHx idiopathic pancreatitis, hepatic cys ts presenting to the ED with intractable nausea and vomiting as well as RU Q abdominal pain for the past 3 days. States that she called her GI doct or Dr. Winn and he told her to come into the ED. She has a scope [facility] ed for 05/[address] Winn. [...] 05/25/20 193 -- 05/25/[address]44 pneumatic compression stockings (mo,wy) VTE Prophylaxis: VTE prophylaxis appropriate GI Prophylaxis: Indicated due to chronic acid suppression th erapy as an outpatient Telemetry: no Disposition: Home Code Status: Not on file Plan of care discussed with: Provider, RN, Patient SIGNATURE: Vickie Srivastava MD PATIENT NAME: Sally shannon DATE: May 26, 2020 TIME: 1:53 PM hemogram on 2020-05 Erythrocyte distribution 13.3 11.7-14.4 % Normal 05-26 [facility] width (RBC) [Ratio] System (07769) Comment: Performed By: #### CBC1 #### [address] [address] Hematocrit (Bld) [Volume 33.7 34.1-44.9 % Low 05-26 [facility] fraction] System (00 000) Comment: Performed By: #### CBC1 #### [address] [address] Hemoglobin (Bld) [Mass/Vol] 10.8 11.2-15.7 g/dL Low [facility] (00 000) Comment: Performed By: #### CBC1 #### [facility] [address] [place], [place] [address] MCH (RBC) [Entitic mass] 29.3 25.6-32.2 pg Normal 05-26 [facility] (00 000) Comment: Performed By: #### CBC1 #### [facility] [address] [place], [place] [address] MCHC (RBC) [Mass/Vol] 32.0 31.6-34.8 % Normal 05-26-20 20 [facility] (42942) Comment: Performed By: #### CBC1 #### [facility] [address] [place], [place] [address] MCV (RBC) [Entitic vol] 91.3 79.4-94.8 fl Normal 2019 [facility] (00 000) Comment: Performed By: #### CBC1 #### [facility] [address] [place], [place] [address] Platelet mean volume (Bld) 10.8 9.4-12.3 fl Normal [facility] [Entitic vol] System (02248) Comment: Performed By: #### CBC1 #### [facility] [address] [place], [place] [address] Platelets (Bld) [#/Vol] 226 182-369 thou/cmm Normal 2019 [facility] (00 000) Comment: Performed By: #### CBC1 #### [facility] [address] [place], [place] [address] RBC (Bld) [#/Vol] 3.69 3.93-5.22 mil/cmm Low 05-26-2020 [facility] (94085) Comment: Performed By: #### CBC1 #### [facility] [address] [place], [place] [address] RDW SD 44.3 36.4-46.3 fl Normal 05-26-2020 [facility] (43711) Comment: Performed By: #### CBC1 #### [facility] [address] [place], [place] [address] WBC (Bld) [#/Vol] 9.78 3.98-10.04 thou/cmm Normal 05-26-2020 [facility] (00 000) Comment: Performed By: #### CBC1 #### [facility] [address] [place], [place] [address] coronavirus 2019 on 2020-05-26 COVID 19 Result REMOTE ADVISOR Negative CORNESonya Normal 05-26-2020 [facility] (92157) Comment: Result Comment: Negative for COVID19 (SARS CoV2) by PCR. This test was developed and its performance characteristics determined by [facility] [place]. This test has bee n authorized by [...] issued on November 12, 2019. Performing Laboratory: [facility] [address] [place] [address] Performed By: #### CD19X ### # [address] [address] consult on CONSULT HNO ID: [id number] Normal 05-26-2020 [facility] Author: Joe Romero) [facility] Service: Gastroenterology (79789) Author Type: Physician Ceiling Cleaner Type: Consults Filed: 05/26/2020 11:22 AM Note [...] Benign liver cyst 05/24/2010 CT scan at [facility] 11/2009 and 04/2010 showe 4 mm increase in size . No pain. No elevated LFTs on 03/11/2010. - Calculus of kidney 05/17/[address] Nicolas: Hospitalized age 20, and again later -- no procedures so far ([facility], [facility], [facility]) - Cancer (HCC) - Diverticulosis - Dysmenorrhea [...] removed - TOTAL ABDOM HYSTERECTOMY 08/31/06 Hysterectomy, [facility] FAMILY HISTORY Problem Relation Age of [...] Approx. 3 cigarettes daily-1 pack every w kaw Substance Use Topics - Alcohol use: Yes [...] (TYLENOL) 650 mg ORAL q 4 H MA N ALLERGIES Allergen Reactions - Penicillins Rash [...] 26, 2020 TIME: 11:10 AM PAGER/CONTACT #: [phone] After 3PM please use on-call paging system basic metabolic panel on 2020-05-26 Anion gap [Moles/Vol] 9 9-18 mmol/L Normal 05-26-20 20 [facility] (53037) Comment: Performed By: #### BMP #### [facility] [address] [place], [place] [address] Calcium [Mass/Vol] 9.0 8.5-10.2 mg/dL Normal 05-26-2020 [facility] (76184) Comment: Performed By: #### BMP #### [facility] [address] [place], [place] [address] Chloride [Moles/Vol] 104 97-105 mmol/L Normal 0 [facility] (33535) Comment: Performed By: #### BMP #### [facility] [address] [place], [place] [address] CO2 Blood 25 22-30 mmol/L Normal 05-26-2020 [facility] (83623) Comment: Performed By: #### BMP #### [facility] [address] [place], [place] [address] Creatinine [Mass/Vol] 0.86 0.58-0.96 mg/dL Normal 05-26-20 20 [facility] (00 000) Comment: Performed By: #### BMP #### [facility] [address] [place], [place] [address] Glucose [Mass/Vol] 87 74-99 mg/dL Normal 05-26-2020 [facility] (59620) Comment: Result Comment: The [place] Diabetes Association (ADA) provides guidance for cutoff [...] Standards of Medical Care in Diabetes 2016; [place] [employer]. Diabetes Care. 2016;39(Suppl 1). Performed By: #### BMP #### [facility] [address] [place], [place] [address] Potassium [Moles/Vol] 3.5 3.7-5.1 mmol/L Low 05-26-20 20 [facility] (30245) Comment: Performed By: #### BMP #### [facility] [address] [place], [place] [address] Sodium [Moles/Vol] 138 136-144 mmol/L Normal 05-26-2020 [facility] (14186) Comment: Performed By: #### BMP #### [address] [address] Urea nitrogen [Mass/Vol] 9 7-21 mg/dL Normal 05-26 [facility] (60238) Comment: Performed By: #### BMP #### [address] [address] urine drug screen o n 2020-05-25 Urine Alcohol <11 0-11 Normal 05-25-2020 [facility] (05052) Comment: Performed By: #### UDRG3 ### # [address] [address] Urine Amphetamine NEGATIVE NEGATIVE Normal 05-25-2020 [facility] (30090) Comment: Performed By: #### UDRG3 ### # [address] [address] Urine Barbiturates NEGATIVE NEGATIVE Normal 05-25-2020 [facility] (49689) Comment: Performed By: #### UDRG3 ### # [address] [address] Urine Benzodiazepine NEGATIVE NEGATIVE Normal 0 [facility] (00 000) Comment: Performed By: #### UDRG3 ### # [address] [address] Urine Cocaine Metab NEGATIVE NEGATIVE Normal 05-25-2020 [facility] (13918) Comment: Performed By: #### UDRG3 ### # [address] [address] Urine Opiates see below NEGATIVE Abnormal 05-25-2020 [facility] (34281) Comment: Result Comment: PRESUMPTIVE POSITIVE Performed By: #### UDRG3 ### # [facility] [address] [place], [place] [address] Urine Oxycodone NEGATIVE NEGATIVE Normal 05-25-2020 [facility] (84063) Comment: Performed By: #### UDRG3 ### # [facility] [address] [place], [place] [address] Urine PCP NEGATIVE NEGATIVE Normal 05-25-2020 [facility] (06170) Comment: Result Comment: Test Cutoff Unit Amphetamines 1000 ng/mL Barbiturates 200 ng/mL Benzodiazepines 200 ng/mL Cannabinoids 50 ng/mL Cocaine 300 ng/mL Opiates 300 ng/mL Oxycodone 100 ng/mL Phencyclidine 25 ng/mL Reference Range: Negative at cutoff threshold Immunoassay screen only. Check Pilot ss reactivity with other substances can occur [...] the same specimen through the laboratory at ([phone]) if contact ed within 48 hours of initial 1. Substance Abuse and [facility] Administration (2012). Clini sam Drug Testing in Primary Care Technical Assistance Publica tion Series 32. Department of Health and Human Services, U SA, p.10. Performed By: #### UDRG3 ### # [facility] [address] [place], [place] [address] Urine THC NEGATIVE NEGATIVE Normal 05-25-2020 [facility] (06198) Comment: Performed By: #### UDRG3 ### # [facility] [address] [place], [place] [address] urinalysis routine on 2020-05-25 RBC LM.HPF (Urine sed) 0.0-3 0.0-5.0 Normal 020 [facility] [#/Area] System (00 000) Comment: Performed By: #### URIN2 ### # [facility] [address] [place], [place] [address] Bacteria LM.HPF (Urine sed) NONE None Normal [facility] [#/Area] (75634) Comment: Performed By: #### URIN2 ### # [facility] [address] [place], [place] [address] Ep Cells Urine 21.5 0.0-5.0 /hpf High 05-25-2020 [facility] (41765) Comment: Performed By: #### URIN2 ### # [facility] [address] [place], [place] [address] Hyaline Cast 0.0 0.0-1.0 /lpf Normal 05-25-2020 [facility] (68654) Comment: Performed By: #### URIN2 ### # [facility] [address] [place], [place] [address] WBC LM.HPF (Urine sed) 2.9 0.0-5.0 /hpf Normal 020 [facility] [#/Area] System (00 000) Comment: Performed By: #### URIN2 ### # [facility] [address] [place], [place] [address] Appearance (U) CLOUDY Normal 05-25-2020 [facility] (27862) Comment: Performed By: #### URIN2 ### # [facility] [address] [place], [place] [address] Bilirubin (U) NEGATIVE Negative mg/dL Normal 05-25-2020 [facility] [Mass/Vol] System (0 0000) Comment: Performed By: #### URIN2 ### # [facility] [address] [place], [place] [address] Color (U) YELLOW Normal 05-25-2020 [facility] (40644) Comment: Performed By: #### URIN2 ### # [facility] [address] [place], [place] [address] Glucose Ql (U) NEGATIVE Negative Normal 05-25-2020 [facility] (76628) Comment: Performed By: #### URIN2 ### # [facility] [address] [place], [place] [address] Hemoglobin,Urine NEGATIVE Negative Normal 05-25-2020 [facility] (95802) Comment: Performed By: #### URIN2 ### # [facility] [address] [place], [place] [address] Ketone Urine NEGATIVE Negative Normal 05-25-2020 [facility] (29853) Comment: Performed By: #### URIN2 ### # [facility] [address] [place], [place] [address] Leukocytes Esterase NEGATIVE Negative Normal 05-25-2020 [facility] (47966) Comment: Performed By: #### URIN2 ### # [facility] [address] [place], [place] [address] Nitrites Urine NEGATIVE Negative Normal 05-25-2020 [facility] (51617) Comment: Performed By: #### URIN2 ### # [address] [address] pH (U) 5.5 5.0-8.0 [pH] Normal 05-25-2020 [facility] (89031) Comment: Performed By: #### URIN2 ### # [facility] [address] [place], [place] [address] Protein (U) [Mass/Vol] NEGATIVE Negative mg/dL Normal 020 [facility] (00 000) Comment: Performed By: #### URIN2 ### # [facility] [address] [place], [place] [address] Specific [place], Ur 1.024 1.005-1.030 Normal 020 [facility] (00 000) Comment: Performed By: #### URIN2 ### # [facility] [address] [place], [place] [address] Urobilinogen,Ur 0.2 0.2-1.0 EU/dL Normal 05-25-2020 [facility] (56936) Comment: Performed By: #### URIN2 ### # [facility] [address] [place], [place] [address] nursing prog on 202 NURSING PROG HNO ID: [id number] Normal 05-25-20 [facility] Author: Eleanor (Rn) VIN Parrish [place] ([id number]) Service: ? Author Type: Registered Nurse Type: [...] Lipase Blood 25 16-61 U/L Normal 05-25-2020 [facility] (03412) Comment: Performed By: #### LIP #### [place] [address] hosp on 2020-05-25 HOSP Patient:Sally Mcgregor Normal 05-15 [facility] MRN: General Height:5' 1(1.549 m) Medical Weight:200 lb 6.4 oz (90.901 kg) Center Outpatient Medications as of 05/28/20: (21893) hyoscyamine (LEVSIN) 0.125 mg tablet sucralfate (CARAFATE) [...] 32.2 % 05/28/2020 44.9 34.1 Progress Notes ([facility]): Pierce Barber Ma 05/25/2020 4:24 PM Signed [...] since Thursday night. Patient was seen at [facility] on Thursday night where she was given fluids, told her labs looked fine and was discharged home. Sameer cheney follows with Dr. Winn for GI as she has a 9 cm cyst in her liver and history of pancreatitis . Patient is scheduled for endoscopy and ultrasound on . She states that Dr. Winn told her to come to [facility] ED for specific type of imaging but [...] v Family history: of suicide, attempts, or [place] 1 psychiatri c disorders requiring hospitalization v Precipitants/Stressors/Interpersonal: triggering events le ading to humiliation, shame or despair (e.g; loss of relationship, fi nancial or Health status-real or antici pated). Ongoing medical illness (zohreh. 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 Intoxication. Family turmoil/chaos. History of Physical or sexual abuse. Social isolation. v Change in treatment: discharge from psychiatric hospital, provider or treatment change v Access to firearms 2.??? PROTECTIVE FACTORS pro tective factors, even if present, may not counteract significant acute risk v Internal: ability to cope with stress, synagogue beliefs, frustration tolerance v External: responsibility to [...] on an Inpatient Behavioral Health Unit, Suic ksotas risk level should be considered: low PAST MEDICAL HISTORY Diagnosis Date - Allergic rhinitis, cause unspecified 05/17/2008spring and summer - Benign liver cyst 05/24/2010 CT scan at [facility] 11/2009 and 04/2010 showe 4 mm increase in size . No pain. No elevated LFTs on 03/11/2010. - Calculus of kidney 05/17/[address] Nicolas: Hospitalized age 20, a nd again later -- no procedures so far ([facility], [facility], [facility]) - Cancer (HCC) - Diverticulosis - Dysmenorrhea [...] removed - TOTAL ABDOM HYSTERECTOMY 08/31/06 Hysterectomy, [facility] FAMILY HISTORY Problem Relation Age of [...] Approx. 3 cigarettes daily-1 pack every w kaw Substance and Sexual Activity - Alcohol use: [...] PM: You may reach the House Medicine industrial design intern currently assigned to this patien t by finding their pager number on the treatment team (they will be assigned as the industrial design intern or resident). It is the last four digits in the phone num alyson beginning with ([phone]). We encourage the use of [employer] Secure Chat. PCP: Marcelino Mejia MD Admitting [...] Benign liver cyst 05/24/2010 CT scan at [facility] 11/2009 and 04/2010 showe 4 mm increase in size . No pain. No elevated LFTs on 03/11/2010. - Calculus of kidney 05/17/[address] Nicolas: Hospitalized age 20, a nd again later -- no procedures so far ([facility], [address] [facility]) - Cancer (HCC) - Diverticulosis - Dysmenorrhea [...] Approx. 3 cigarettes daily-1 pack every w kaw Substance Use Topics - Alcohol use: Yes [...] Benign liver cyst 05/24/2010 CT scan at [facility] 11/2009 and 04/2010 showe 4 mm increase in size . No pain. No elevated LFTs on 03/11/2010. - Calculus of kidney 05/17/[address] Nicolas: Hospitalized age 20, a nd again later -- no procedures so far ([facility], [facility], [facility]) - Cancer (HCC) - Diverticulosis - Dysmenorrhea [...] Approx. 3 cigarettes daily-1 pack every w kaw Substance Use Topics - Alcohol use: Yes [...] (TYLENOL) 650 mg ORAL q 4 H MA N ALLERGIES Allergen Reactions - Penicillins Rash [...] 26, 2020 TIME: 11:10 AM PAGER/CONTACT #: [phone] After 3PM please use on-call paging system Vickie Srivastava MD 05/26/2020 2:11 PM Attested Attestation signed by Oh Arreaga at 05/26/2020 2:23 PM Attending Note I personally saw and examined the patient on 05/26/20. I rev iewed the resident's note. I agree with the resident's assessment and plan unless otherwise noted. Signature: Oh Arreaga, DO Date: 05/26/2020 Time: 2:23 PM Pager: [phone] HOUSE MEDICINE SERVICE PROGRESS NOTE SERVICE DATE: May 26, 2020 SERVICE TIME: 1:53 PM NIGHT AND WEEKEND COVERAGE: From 6 AM to 5 PM: You may reach the House Medicine industrial design intern currently assigned to this patien t by finding their pager number on the treatment team (they will be assigned as the industrial design intern or resident). It is the last four digits in the phone num alyson beginning with ([phone]). We encourage the use of [employer] Secure Chat. SUBJECTIVE HPI: 39 year old [...] 05/25/20 193 -- 05/25/201944 pneumatic compression stockings (mo,oh) VTE Prophylaxis: VTE prophylaxis appropriate GI Prophylaxis: Indicated due to chronic acid suppression th erapy as an outpatient Telemetry: no Disposition: Home Code Status: Not on file Plan of care discussed with: Provider, RN, Patient SIGNATURE: Vickie Srivasatva MD PATIENT NAME: Sally shannon DATE: May [...] (TYLENOL) 650 mg ORAL q 4 H MA N - oxyCODONE IR 10 mg tab(s) (ROXICODONE) 10 mg ORAL q 6 H MA N Objective PHYSICAL EXAM: VITALS:BP 119/74 Pulse [...] 27, 2020 TIME: 1:15 PM PAGER/CONTACT #: Hand Buffing Wheel Former Pager Vickie Srivastava MD 05/27/2020 4:19 PM [...] PM: You may reach the House Medicine industrial design intern currently assigned to this patien t by finding their pager number on the treatment team (they will be assigned as the industrial design intern or resident). It is the last four digits in the phone num alyson beginning with ([phone]). We encourage the use of [employer] Secure Chat. SUBJECTIVE HPI: 39 year old [...] Note Patient Name: Sally Mcgregor Patient Location: [id number] Attempted to draw AM labs. Was unsuccessful x 2 attempts. This note was completed by: VIN Conley MD 05/28/2020 8:57 AM Incomplete HOUSE MEDICINE SERVICE PROGRESS NOTE SERVICE DATE: May 28, 2020 SERVICE TIME: 1:53 PM NIGHT AND WEEKEND COVERAGE: From 6 AM to 5 PM: You may reach the House Medicine industrial design intern currently assigned to this patien t by finding their pager number on the treatment team (they will be assigned as the industrial design intern or resident). It is the last four digits in the phone num alyson beginning with ([phone]). We encourage the use of [employer] Secure Chat. SUBJECTIVE HPI: 39 year old [...] delete will not show in completed note) :[id number] } Intractable nausea and vomiting Intractable nausea [...] delete will not show in completed note) :[id number] } Medication and Non-Pharmacologic VTE Prophylaxis/Anticoagula nts Anticoagulant AND Antiplatelet Medications (From admission, onward) Start Dose Route Frequency Ordered Stop 05/25/201999 enoxaparin 40 mg injection (LOVENOX) (Me dical Risk Categories) 40 mg SUBCUTANEOUS DAILY 05/25/201935 -- 05/25/201944 pneumatic compression stockings (mo,oh) VTE Prophylaxis: VTE prophylaxis appropriate GI Prophylaxis: [...] mg x 3 Quetiapine 100 mg daily [place] prescription history Shows occasional use of opiates, [...] (ROXICODONE) 10 mg ORAL q 6 H MA N Maggi (Kiran) MD Mark 10 mg [...] Approx. 3 cigarettes daily-1 pack every w kaw Substance Use Topics - Alcohol use: Yes [...] Benign liver cyst 05/24/2010 CT scan at [facility] 11/2009 and 04/2010 showe 4 mm increase in size . No pain. No elevated LFTs on 03/11/2010. - Calculus of kidney 05/17/[address] Nicolas: Hospitalized age 20, a nd again later -- no procedures so far ([facility], [facility]) - Cancer (HCC) - Diverticulosis - Dysmenorrhea [...] Approx. 3 cigarettes daily-1 pack every w kaw Substance Use Topics - Alcohol use: Yes [...] May 28, 2020 TIME: 12:15 PM CSN: [id number] history physical on 2020-05-25 HISTORY HNO ID: [id number] Normal 05-25-2020 [facility] PHYSICAL Author: Maggi Flores MD General Service: Hospital Medicine Medical Author Type: Resident Center Type: [facility] ([id number]) Filed: 05/25/2020 5:42 PM Note Text: Attestation [...] PM: You may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 increase in size . No pain. No elevated LFTs on 03/11/2010. - Calculus of kidney 05/17/[address] Nicolas: Hospitalized age 20, and again later -- no procedures so far ([facility], [facility], [facility]) - Dysmenorrhea - History of blood transfusion [...] removed - TOTAL ABDOM HYSTERECTOMY 08/31/06 Hysterectomy, [facility] Allergies: ALLERGIES Allergen Reactions - Penicillins [...] Approx. 3 cigarettes daily-1 pack every w kaw Substance Use Topics - Alcohol use: Yes [...] CNOV Office Visit (GSTNOR) Normal 04-26- 20 [facility] SALLY MCGREGOR ([id number]) 1980 [facility] Date Time Provider Department ([id number]) 04/26/20 3:00 PM JOHNNY WINN During your [...] Benign liver cyst 05/24/2010 CT scan at [facility] 11/2009 and 04/2010 showe 4 mm increase in size . No pain. No elevated LFTs on 03/11/2010. - Calculus of kidney 05/17/[address] Nicolas: Hospitalized age 20, a nd again later -- no procedures so far ([facility], most, [facility]) - Dysmenorrhea - History of blood transfusion [...] removed - TOTAL ABDOM HYSTERECTOMY 08/31/06 Hysterectomy, [facility] Allergies: ALLERGIES Allergen Reactions - Penicillins [...] Approx. 3 cigarettes daily-1 pack every w kaw Substance Use Topics - Alcohol use: Yes [...] If you do not have a responsible oil transport driver (family member or friend) with you [...] the prescription bowel preparation solution at your [facility] pharmacy or drugstore pharmacy. 08/2019 Bowel [...] or limit intake. Referring Provider: MARCELINO MEJIA [[id number]] Allergies As of Date: 04/26/2020 Noted Allergy [...] doctor.Disp: 1 BottleRfl : 0 INSERT IV ([place]) [9516456] Order #: [id number]: 1 FUTURE IV DISCONTINUE [2179504] Order #: [id number]: 1 FUTURE INSERT IV ([place]) [2841221] Order #: [id number]: 1 EGD [9742118] Order #: [id number] FUTURE COLONOSCOPY - DIAGNOSTIC [2255017] Order #: [id number] FUTUR E CELIAC DISEASE PANEL [2294827] Order #: [id number] FUTURE IGG SUBCLASSES BLD [SQIGGSUB] Order #: [id number] FUTURE US ABD RT UPPER QUADRANT [1302991] Order #: [id number] FUTUR E metroNIDAZOLE (FLAGYL) 500 mg tabletTake [...] AND PRE-OPERATIVE COVID [SQPOCOVD] Order #: [id number] FUTURE Prescriptions as of 04/26/2020 Sig: DIPHENHYDRAMINE [...] take a taxi or bus, or leave [facility] ALONE. If you do not have a responsible oil transport driver (famil y member or friend) with [...] the prescription bowel preparation solution at your [facility] pharmacy or drugstore pharmacy. 08/2019 Bowel [...] on 2020-04-26 CNCO Letter Text Normal 04-26-2020 [facility] (04199) cnpn on 2020-04-19 CNPN Telephone (FAMPWS) Normal 04-19-2020 [facility] SALLY MCGREGOR ([id number]) 1980 [facility] Date Time Provider Department ([id number]) 04/19/20 [facility] During your visit today, we recorded the following informati on about you: Christopher Carcamo RN 04/19/2020 10:49 AM Signed Faxed GI referral and demographics to [facility], per patient request. . Allergies As [...] Fully Assessed Reason for Visit: Faxed to [facility] [Other] Prescriptions as of 04/19/2020 Sig: [...] on 2020-04-18 CNPN Telephone (FAMPWS) Normal 04-18-2020 [facility] SALLY MCGREGOR ([id number]) 1980 [facility] Date Time Provider Department (77969) 04/18/20 [facility] During your visit today, we recorded the following informati on about you: Yvette Huffman RN 04/18/2020 2:01 PM Signed Pt called, verified by name and birthdate. Pt wants to know if she can see a GI doctor. Reviewed pt's chart and she has a GI con sult with GI group in [place]. Pt verbalized understanding, states she will call to make ap t Yvette Huffman RN Allergies As of Date: 04/18/2020 Noted Allergy Reaction PENICILLINS 12/07/2009 2 - Rash ASA (SALICYLATES) 01/27/2011 14 - Other: See Comments Comments: ulcers CONTRAST DYE (IODINE) 05/17/2008 12 - Shortness of Breath FLAGYL (METRONIDAZOLE HCL) 03/11/2010 12 - Shortness of [place] th IBUPROFEN 06/18/2016 8 - GI Upset PREDNISONE 06/18/2016 14 - Other: See Comments Comments: makes agitated and mean Date Reviewed: 02/23/2020 Reviewed by: Marcelino Mejia - Fully Assessed Reason for Visit: Patient Question [5927] Prescriptions as of 04/18/2020 Sig: TOPIRAMATE 50 [...] on 2020-04-16 CNPN Telephone (FAMSkylerWS) Normal 04-16-2020 [facility] SALLY MCGREGOR ([id number]) 1980 [facility] Date Time Provider Department ([id number]) 04/16/20 [facility] During your visit today, we recorded the following informati on about you: Edwina Tatum SUBSTANCE ABUSE CLINICIAN 04/16/2020 11:38 AM Signed Pt calls to report she went to [facility] ER 04/12. Pt reports she went because [...] (METRONIDAZOLE HCL) 03/11/2010 12 - [place]ness of [place] th IBUPROFEN 06/18/2016 8 - GI Upset [...] on 2020-03-29 CNPN Telephone (FAMPWS) Normal 03-29-2020 [facility] SALLY MCGREGOR ([id number]) 1980 [facility] Date Time Provider Department ([id number]) 03/29/20 [facility] During your visit today, we recorded the following informati on about you: Melanie Debby HERNANDEZ 03/29/2020 10:06 AM Signed Patient calling crying constantly, so congested from a ll the crying, can not get appt with [facility] will not take her insurance. [facility] [...] AM Signed 1. Can we confirm that [place] [facility] at [facility] doesn't take her insurance. If they don't [...] said to ask for prescription for [facility] relaxer or ibuprofen (she said, in below message she can't take ibuprof en). TC to [facility] and had to leave message for them to return call regarding if they accept patient's insurance. Instructed the m to give patient's name when they return the call so we can document. Lorenzo Vu 03/29/2020 12:49 PM Signed Giulia / [facility] returned call stating the y do not take [place]; provider is not credentialed with them yet. [...] muscle relaxer for her migraines. Pharmacy is [facility]. Please review and advise. [...] (METRONIDAZOLE HCL) 03/11/2010 12 - [place]ness of [place] th IBUPROFEN 06/18/2016 8 - GI Upset [...] 2020-03-28 CNPN Telephone (FAMWS) Normal 03-28-2020 [facility] SALLY MCGREGOR ([id number]) 1980 [facility] Date Time Provider Department ([id number]) 03/28/20 MARCELINO MEJIA During your visit today, [...] OBSOLETE Refill (FAMPWS) Normal 03-27-2020 Isaías veland [facility] SALLY MCGREGOR ([id number]) 1980 [facility] Date Time Provider Department ([id number]) 03/27/20 MARCELINO MEJIA FAMPWS During your visit [...] on 2020-03-27 CNPN Telephone (FAMPWS) Normal 03-27-2020 [facility] SALLY MCGREGOR ([id number]) 1980 [facility] Date Time Provider Department ([id number]) 03/27/20 MARCELINO MEJIA During your visit today, we recorded the following informati on about you: Yvette Huffman RN 03/27/2020 10:59 AM Signed Pt called, verified by name and birthdate. Pt states s he went to [facility] ER last night for a migraine and had a CT scan. Pt wants PCP to review ER records. Pt wants referral to neurology. Order pended. When signed pleas e fax to [facility] at [facility] per pt request Yvette Murphy Ma 03/27/2020 12:20 PM Signed ER reports on PCP's desk to review. Jessica Zhou, RN, RN 03/27/2020 1:37 PM Signed Pt calls, asking what the diagnosis was on the ER note. Pt states she was told air bubble, tumor States Imitrex is not working. Has already taken 2 today. Wa iting on [facility] to call her back Pt asking [...] referral placed and can be faxed to [facility]. Let patient know th e CT did [...] referred to. See needs to contact her grounds caretaker to get the help see nee ds as instructed on 03/22/2020, otherwise our hands are tied. Jessica Murphy Ma 03/27/2020 2:29 PM Signed Pt notified and voiced understanding. Referral and Dem o faxed to [facility]. Jessica Murphy Ma Allergies As of [...] [G43.009] Order(s):CONSULT TO NEUROLOGY [[id number]] Order #: [id number]: 1 FUTURE Prescriptions as of 03/27/2020 Sig: [...] 03/27/20 progress on 2020-03 PROGRESS HNO ID: [id number] Normal 03-22-2020 [facility] Author: Isabel (Maya) Hugo Mata ([id number]) Service: ? Author Type: Physician Ceiling Cleaner Type: Progress Notes Filed: 03/22/2020 9:50 AM Note Text: DISTANCE HEALTH VISIT This Team Access Model visit is a phone encounter. It requir ed patient-provider interaction for the medical decision making as documented below. No video was used for evaluation of this patient. Patient consents to visit. Patient location: [place] Sally Mcgregor is a 39 year old female seen for headaches a nd pain. Patient states she has had to cancel with pain management 5 different times so now they won't reschedule her. She continues to have migraines/headaches. Only taking topam ax once a day. Couldn't do MRI or US due to rides. [place] cardiac [place] but continues to [...] 11-20 minutes cnpn on 2020-03-22 CNPN Telephone ([facility]) Normal 03-22-2020 [facility] TOSHIASALLY TORRES ([id number]) 1980 [facility] Date Time Provider Department ([id number]) 03/22/20 ISABEL ARIAS) RAMA During your visit today, we recorded the following informati on about you: ISABEL ARIAS PA-C 03/22/2020 9:43 AM Signed Please let patient know that this is info I have received from in regards to rides: The last I knew, most of them were back up and running. I do know that [facility] has been continuing with their ride assistance and are taking people to their appts. I would sa y they need to check now with insurance to see if able to set up ride. The patient could also see if they can request a grounds caretaker through their Medicaid Managed Care p maria esther. I have patients that have Medicaid plan and their care managers a re able to assist them setting up services. Having a grounds caretaker through insu eve is great because they [...] again. I advised her that she contact [place] and request more help from her grounds caretaker. Allergies As of Date: 03/22/2020 Noted Allergy [...] Encounter Status:Closed by ISABEL WARE on 03/22/20 [facility] Normal 03-08-2020 [facility] SALLY Martinez ([id number]) 1980 [facility] Date Time Provider Department ([id number]) 03/08/20 [facility] During your visit today, we recorded [...] transfer to scheduling and while waiting for outsole scheduler which was awhile, pt dropped call. [...] (METRONIDAZOLE HCL) 03/11/2010 12 - [place]ness of [place] th IBUPROFEN 06/18/2016 8 - GI Upset [...] on 2020-03-05 CNPN Telephone (FAMWS) Normal 03-05-2020 [facility] BENJIShivaSALLY ([id number]) 1980 [facility] Date Time Provider Department ([id number]) 03/05/20 [facility] During your visit today, we recorded the following informati on about you: Sallie Benitez SUBSTANCE ABUSE CLINICIAN 03/05/2020 1:58 PM Signed Patient is scheduling [...] on 03/06/20 CNPN Telephone (FAMPWS) Normal 03-05-2020 [facility] SALLY MCGREGOR ([id number]) 1980 [facility] Date Time Provider Department ([id number]) 03/05/20 MARCELINO MEJIA During your visit today, we recorded the following informati on about you: Melanie Debby SUBSTANCE ABUSE CLINICIAN 03/05/2020 2:16 PM Signed Patient calling would like outsole scheduler to call her back to set [...] stated she has Dr. Cueto for her vault manager.did not want to go to [place] for [place] [facility] Stress. vic stated she is to see [facility] for [facility] Management. Verified that we have [facility] and MRI schedul ed here on 03/19. -Marry Xavi Pss Allergies As of Date: 03/05/2020 Noted Allergy Reaction PENICILLINS 12/07/2009 2 - Rash ASA (SALICYLATES) 01/27/2011 14 - Other: See Comments Comments: ulcers CONTRAST DYE (IODINE) 05/17/2008 12 - Shortness of Breath FLAGYL (METRONIDAZOLE HCL) 03/11/2010 12 - [place]ness of [place] th IBUPROFEN 06/18/2016 8 - GI Upset PREDNISONE 06/18/2016 14 - Other: See Comments Comments: makes agitated and mean Date Reviewed: 02/23/2020 Reviewed by: Marceilno A Roosevelt - Fully Assessed Reason for [...] on 2020-02-28 CNPN Telephone (FAMPWS) Normal 02-28-2020 [facility] SALLY Martinez ([id number]) 1980 [facility] Date Time Provider Department ([id number]) 02/28/20 [facility] During your visit today, we recorded the following informati on about you: Janneth Zhou, RN, RN 02/28/2020 10:41 AM Signed Pt calls for ER F/U appt. States she was at [facility] ER on 02/24 after reportidly passing out. [...] XR CHEST 1 VIEW ORIGINAL Normal 02-25-2020 [facility] XR CHEST 1 VIEW Foun dation ([place]) ([id number]) CLINICAL STATEMENT: Chest pain COMPARISON: 04/06/2006 FINDINGS: [...] Troponin I.cardiac <0.020 0.000-0.040 ng/mL Normal 0 [place] [facility] [Mass/Vol] [place] ([place] (95465) Comment: Result Comment: Troponin I r eference range: 0.00-0.040 ng/mL Negative an d non-diagnostic. >0.040 ng/mL Consistent with cardiac damage, increased clinical risk and possibility of myocardial in farction. Serial measurements, a rise & fall in test results, clinical histo ry, appropriate symptoms and/or ECG changes may help assess possibility of [place]. *Other non-acute coronary sy ndrome conditions such as CHF, myoc arditis, pulmonary emboli, sepsis and cardiac surgery could result in myoc ardial damage and increased troponi n levels. Performed By: #### CBC, ADIF F, ANEU, BMP, GFR #### [address] [address] mg on 2020-02-25 Magnesium [Mass/Vol] 2.0 1.8-2.4 mg/dL Normal 0 Pending Sale To [facility] ([place]) (0000 0) Comment: Performed By: #### CBC, ADIF F, ANEU, BMP, GFR #### [address] [address] lip on 2020-02-25 Lipase Level 562 73-393 U/L High 02-25-2020 [facility] ([place]) (90875) Comment: Performed By: #### CBC, ADIF F, ANEU, BMP, GFR #### [address] [address] cmp on 2020-02-25 Albumin [Mass/Vol] 4.1 3.5-5.0 G/dL Normal 02-25-2020 Pending [facility] To [facility] ([place]) (25040) Comment: Performed By: #### CBC, ADIF F, ANEU, BMP, GFR #### [address] [address] Albumin/Globulin [Mass 1.2 1.1-2.5 ratio Normal [address] [place] [address]] [facility] ([place]) (05762) Comment: Performed By: #### CBC, ADIF F, ANEU, BMP, GFR #### [address] [address] ALP [Catalytic activity/Vol] 98 40-135 U/L Normal 0 02-25-2020 Pending [facility] To [facility] ([place]) (0000 0) Comment: Performed By: #### CBC, ADIF F, ANEU, BMP, GFR #### [address] [address] ALT [Catalytic activity/Vol] 30 10-35 U/L Normal 0 02-25-2020 Pending [facility] To [facility] ([place]) (0000 0) Comment: Performed By: #### CBC, ADIF F, ANEU, BMP, GFR #### [address] [address] AST [Catalytic activity/Vol] 15 10-40 U/L Normal 0 02-25-2020 Pending [facility] To [facility] ([place] (0000 0) Comment: Performed By: #### CBC, ADIF F, ANEU, BMP, GFR #### [address] [address] Bili Total 0.4 0.2-1.0 mg/dL Normal 02-25-2020 Pending [facility] To [facility] ([place]) (89022) Comment: Result Comment: Use of this assay is not recommended for patients undergoing treatment with eltrombopag d ue to the potential for falsely elevated results. Performed By: #### CBC, ADIF F, ANEU, BMP, GFR #### [address] [address] Calcium [Mass/Vol] 8.9 8.4-10.2 mg/dL Normal 02-25-2020 Pending [facility] To [facility] ([place] (0000 0) Comment: Performed By: #### CBC, ADIF F, ANEU, BMP, GFR #### [address] [address] Chloride [Moles/Vol] 104 98-107 mmol/L Normal 0 Pending [facility] To [facility] ([place] (0000 0) Comment: Performed By: #### CBC, ADIF F, ANEU, BMP, GFR #### [address] [address] CO2 [Moles/Vol] 28 22-29 mmol/L Normal 02-25-2020 [facility] ([place]) (54852) Comment: Performed By: #### CBC, ADIF F, ANEU, BMP, GFR #### [address] [address] Creatinine [Mass/Vol] 1.01 0.55-1.02 mg/dL Normal 02-25-20 20 Pending [facility] To [facility] ([place] (00409) Comment: Performed By: #### CBC, ADIF F, ANEU, BMP, GFR #### [address] [address] Electrolyte Balance 9.0 mEq/L Normal 02-25-2020 Pending [facility] To [facility] ([place] (48816) Comment: Performed By: #### CBC, ADIF F, ANEU, BMP, GFR #### [address] [address] Globulin (S) [Mass/Vol] 3.4 G/dL Normal 2019 Pending [facility] To [facility] ([place] (57609) Comment: Performed By: #### CBC, ADIF F, ANEU, BMP, GFR #### [address] [address] Glucose [Mass/Vol] 112 70-105 mg/dL High 02-25-2020 Pending [facility] To [facility] ([place] (63159) Comment: Performed By: #### CBC, ADIF F, ANEU, BMP, GFR #### [address] [address] Potassium [Moles/Vol] 3.7 3.5-5.1 mmol/L Normal 02-25-20 Pending [facility] To [facility] ([place]) (0000 0) Comment: Performed By: #### CBC, ADIF F, ANEU, BMP, GFR #### [address] [address] Protein [Mass/Vol] 7.5 6.4-8.2 G/dL Normal 02-25-2020 Pending [facility] To [facility] ([place]) (94478) Comment: Performed By: #### CBC, ADIF F, ANEU, BMP, GFR #### [address] [address] Sodium [Moles/Vol] 141 136-145 mmol/L Normal 02-25-2020 Pending [facility] To [facility] ([place]) (0000 0) Comment: Performed By: #### CBC, ADIF F, ANEU, BMP, GFR #### [address] [address] Urea nitrogen [Mass/Vol] 21 7-18 mg/dL High 02-24 Pending [facility] To [facility] ([place]) (04818) Comment: Performed By: #### CBC, ADIF F, ANEU, BMP, GFR #### [address] [address] Urea nitrogen/Creatinine [Mass 21 7-27 ratio Normal 02-25-2020 [facility]] [facility] ([place]) (97882) Comment: Performed By: #### CBC, ADIF F, ANEU, BMP, GFR #### [address] [address] cbc on 2020-02-25 Erythrocyte distribution 14.9 11.5-14.5 % High 02-24 Pending Sale To [facility] width (RBC) [Ratio] ([place]) (16903) Comment: Performed By: #### CBC, ADIF F, ANEU, BMP, GFR #### [place] [address] Hematocrit (Bld) [Volume 35.9 37.0-47.0 % Low 02-24 Pending [facility] fraction] ([place]) (0000 0) Comment: Performed By: #### CBC, ADIF F, ANEU, BMP, GFR #### [place] [address] Hemoglobin (Bld) 11.8 12.0-16.0 G/dL Low 02-25-2020 [facility] [Mass/Vol] ([place]) (000 00) Comment: Performed By: #### CBC, ADIF F, ANEU, BMP, GFR #### [place] [id number] MCH (RBC) [Entitic mass] 29.5 27.0-31.2 pg Normal 02-24 Pending [facility] To [facility] ([place]) (0000 0) Comment: Performed By: #### CBC, ADIF F, ANEU, BMP, GFR #### [place] [id number] MCHC (RBC) [Mass/Vol] 32.9 33.0-37.0 G/dL Low 02-25-20 20 Pending [facility] To [facility] ([place]) (0000 0) Comment: Performed By: #### CBC, ADIF F, ANEU, BMP, GFR #### [place] [id number] MCV (RBC) [Entitic vol] 89.9 80.0-94.0 fL Normal 2019 Pending [facility] To [facility] ([place]) (0000 0) Comment: Performed By: #### CBC, ADIF F, ANEU, BMP, GFR #### [place] [address] Platelet mean volume 9.2 7.4-10.4 fL Normal 0 Pending Sale To [facility] (d) [Entitic vol] ([place]) (38962) Comment: Performed By: #### CBC, ADIF F, ANEU, BMP, GFR #### [place] [address] Platelets (Bld) [#/Vol] 265 130-400 10 3/mcL Normal 2019 Pending [facility] To [facility] ([place]) (12345) Comment: Performed By: #### CBC, ADIF F, ANEU, BMP, GFR #### [place] [address] RBC (Bld) [#/Vol] 4.00 4.20-5.40 10 6/mcL Low 02-25-2020 [facility] ([place]) (0000 0) Comment: Performed By: #### CBC, ADIF F, ANEU, BMP, GFR #### [place] [address] WBC (Bld) [#/Vol] 9.90 4.60-10.80 10 3/mcL Normal 02-25-2020 Pending [facility] ([place]) (47349) Comment: Performed By: #### CBC, ADIF F, ANEU, BMP, GFR #### [place] [address] .neuabs on Neutrophils (Bld) 6.00 2.85-6.16 10 3/mcL Normal 02-25-2020 [facility] [#/Vol] [facility] ([place]) (29804) Comment: Performed By: #### CBC, ADIF F, ANEU, BMP, GFR #### [address] [address] .gfr on 2020-02-25 GFR Non- 61 ml/min/1.73sqm Normal 02-25-2020 Pending [facility] To [facility] ([place]) (82843) Comment: Result Comment: GFR Population mean for Afri can Beninese, Non- Americans Ages 20-29 = 116 mL/min/1.73 [...] ADIF F, ANEU, BMP, GFR #### [address] [address] GFR 74 ml/min/1.73sqm Normal 02-12 Pending Sale To [facility] ([place]) (0000 0) Comment: Result Comment: GFR Population mean for Afri can Beninese, Non- Americans Ages 20-29 = 116 mL/min/1.73 [...] ADIF F, ANEU, BMP, GFR #### [address] [address] .auto diff on 02-24 Ammonia (P) [Mass/Vol] 0.60 0.15-1.00 10 3/mcL Normal 020 Pending [facility] To [facility] ([place]) (14823) Comment: Performed By: #### CBC, ADIF F, ANEU, BMP, GFR #### [address] [address] Basophils (Bld) 0.00 0.00-0.19 10 3/mcL Normal 02-25-2020 [facility] [#/Vol] [facility] ([place]) (91920) Comment: Performed By: #### CBC, ADIF F, ANEU, BMP, GFR #### [address] [address] Basophils/100 WBC (Bld) 0.2 0.0-2.5 % Normal 2019 Pending [facility] ([place]) (0000 0) Comment: Performed By: #### CBC, ADIF F, ANEU, BMP, GFR #### [address] [address] Eosinophils (Bld) 0.30 0.00-0.40 10 3/mcL Normal 02-25-2020 [facility] [#/Vol] [facility] ([place]) (70755) Comment: Performed By: #### CBC, ADIF F, ANEU, BMP, GFR #### [address] [address] Eosinophils/100 WBC (Bld) 3.5 0.0-7.0 % Normal 02-12 Pending [facility] ([place]) (0000 0) Comment: Performed By: #### CBC, ADIF F, ANEU, BMP, GFR #### [address] [address] Lymphocytes (Bld) 2.90 0.77-3.85 10 3/mcL Normal 02-25-2020 [facility] [#/Vol] [facility] ([place]) (74356) Comment: Performed By: #### CBC, ADIF F, ANEU, BMP, GFR #### [address] [address] Lymphocytes/100 WBC (Bld) 28.9 10.0-50.0 % Normal 02-12 Pending [facility] ([place]) (72123) Comment: Performed By: #### CBC, ADIF F, ANEU, BMP, GFR #### [address] [address] Monocytes/100 WBC (Bld) 6.3 1.7-13.0 % Normal 2019 Pending [facility] To [facility] ([place]) (0000 0) Comment: Performed By: #### CBC, ADIF F, ANEU, BMP, GFR #### [facility] [address] [place] [address] Neutrophils/100 WBC (Bld) 61.1 37.0-80.0 % Normal 02-12 Pending [facility] To [facility] ([place]) (05508) Comment: Performed By: #### CBC, ADIF F, ANEU, BMP, GFR #### [facility] [address] [place] [address] progress on 2020-02 PROGRESS HNO ID: [id number] Normal 02-23-2020 [facility] Author: Marcelino Mejia [facility] ([id number]) Service: ? Author Type: Physician Type: Progress Notes Filed: 02/23/2020 12:21 PM Note Text: This Team Access Model visit is a phone encounter. It requir ed patient-provider interaction for the medical decision making as documented below. The patient is identified by name and birthday. Patient loca tion: [place] The patient is aware that I am [...] on 2020-02-20 CNPN Telephone (FAMPWS) Normal 02-20-2020 [facility] SALLY MCGREGOR ([id number]) 1980 [facility] Date Time Provider Department ([id number]) 02/20/20 MARCELINO MEJIA During your visit today, we recorded the following informati on about you: Lexy Tapia RN 02/20/2020 8:40 AM Signed fyi- Patient calls to report to PCP that she was back in [facility] ER over weekend due to pain from Pancreatitis. Her level was 800, so they s ent me home. States she received Oxycodone and report s that it is not doing much to relieve her pain and wanted PCP aware that she was in ER again. Patient did not have phone number of [facility] to schedule f ollow up. This [...] (METRONIDAZOLE HCL) 03/11/2010 12 - Shortness of [place] th IBUPROFEN 06/18/2016 8 - GI Upset [...] Encounter Status:Closed by MARCELINO MEJIA on 02/20/20 [facility]) Normal 02-20-2020 [facility] SALLY MCGREGOR ([id number]) 1980 [facility] Date Time Provider Department ([id number]) 02/20/20 MARCELINO MEJIA [facility] During your visit today, we recorded the following informati on about you: Christopher Carcamo RN 02/20/2020 9:48 AM Signed Patient phoned crying and distraught, stating [facility], can not get her in until March. States she cannot take this pain anymore, her insurance will not cover anyone in [facility] When she was in the hospital [...] pain right now, she is upset because [facility] I cannot see her until March. Asking if there is anything pcp can do to get her in sooner? Ple ase phone patient with reply. Marcelino Mejia MD 02/20/2020 10:15 AM Signed Let patient know the only op tions ar for her to go to [facility] ER to see if will be [...] has no one to take her to [place]. She said when she goes to [facility] the y just drug her up and [...] Crying. She cannot get transport ation to [facility]. Insurance does not cover [facility] and do es not want to go back to [place] because they will just send h er home with meds and dope me up for 3-4 days. Johnathon SOTELO cannot get her an appointment until March . Will route to clerical gastro for schedu ling within [facility] - possibly [facility]. Marcelino Mejia MD 02/20/2020 12:34 PM Signed noted Augustina Vera RN HELPER [employer]JAKI 02/20/2020 12:40 PM Signed I'd suggest that she go to [place] ED today. it w ould not be [...] she has no way of getting to [facility]. Pt states she does not th ink they take her insurance either. Spoke with PCP who suggested [facility]. Relayed message to pt, pt started yelling stating she has no transp ortation. States if she calls ambulance they will only take her within [facility]. Sta los her boyfriend can't take her [...] illness. Asking letter to be faxed to [phone]. Marcelino Mejia MD 02/20/2020 2:38 PM Signed Let patient know ER report from 02/18/2020 was reviewed and th e ER Physician wanted to keep but she preferred to go home and see if she c ould manage it there. Lorenzo Vu 02/20/2020 4:06 PM Signed Patient returned call, stating she went to [facility] ER today an d they discharged her because her level is less than 800. Reques ting something for pain, that Percocet helped some in past. No transportation to go anywhe re but [place] (?social media community manager to help with transportat ion). Does [...] doctor. In regards to her letter for [place] [employer] karsten what I [...] Signed Letter ready to be faxed to [phone]. Branden Sanders Ma 02/21/2020 8:24 AM Signed [...] Status:Closed by BRANDEN SANDERS MA on 02/21/20 [facility] (FAMWS) Normal 02-20-2020 [facility] SALLY Martinez ([id number]) 1980 [facility] Date Time Provider Department ([id number]) 02/20/20 [facility] During your visit today, we recorded the following informati on about you: Melanie Debby HERNANDEZ 02/20/2020 2:25 PM Signed Patient calling wants note sent to PCP, she is currently i n [facility] ER. Patient said she has been sitting [...] Encounter Status:Closed by MARCELINO MEJIA on 02/20/20 [facility] 2020-02-16 [facility] Telephone (UCWSTR) Normal 02-16-2020 [facility] SALLY Martinez ([id number]) 1980 [facility] Date Time Provider Department ([id number]) 02/16/20 JESSICA JESUS) [facility] During [...] Telephone (FAMPWS) Normal 02-16-2020 [facility] SALLY Martinez ([id number]) 1980 [facility] Date Time Provider Department ([id number]) 02/16/20 ISABEL ARIAS) RAMA During your visit [...] (METRONIDAZOLE HCL) 03/11/2010 12 - [place] of [place] th IBUPROFEN 06/18/2016 8 - GI Upset [...] 02/16/20 progress on 2020-02 PROGRESS HNO ID: [id number] Normal 02-15-2020 [facility] Author: Marcelino Mejia Mata ([id number]) Service: ? Author Type: Physician Type: Progress [...] at today?s visit. Patient was sen in [facility] ER on 02/01/2020 with C/O epigastric p [...] home. Patient was seen in the [facility] care yesterday for mouth sor es [...] nosis) - CONSULT TO GASTROENTEROLOGY: [facility] in [place] - Cont prn phenergan. 2. Tongue ulcer [...] 02-15-2020 [facility] activity/Vol] [place] and ([id number]) Comment: Performed By: #### HBA1C, TS H, LIPNF #### [facility] [address] [place], [place] [address] comp metabolic panel on 2020-02-15 Albumin [Mass/Vol] 4.6 3.9-4.9 g/dL Normal 02-15-2020 [facility] (71629) Comment: Performed By: #### HBA1C, TS H, LIPNF #### [place] [address] [place], [place] [address] ALP [Catalytic activity/Vol] 90 34-123 U/L Normal 0 02-15-2020 [facility] (16324) Comment: Performed By: #### HBA1C, TS H, LIPNF #### [facility] [address] [place], [place] [address] ALT [Catalytic activity/Vol] 6 7-38 U/L Low 0 02-15-2020 [facility] (18199) Comment: Performed By: #### HBA1C, TS H, LIPNF #### [facility] [address] [place], [place] [address] Anion gap [Moles/Vol] 13 9-18 mmol/L Normal 02-15-20 [facility] (18436) Comment: Performed By: #### HBA1C, TS H, LIPNF #### [facility] [address] [place], [place] [address] AST [Catalytic activity/Vol] 20 13-35 U/L Normal 0 02-15-2020 [facility] (69788) Comment: Performed By: #### HBA1C, TS H, LIPNF #### [facility] [address] [place], [place] [address] Bilirubin [Mass/Vol] 0.2 0.2-1.3 mg/dL Normal 0 [facility] (92581) Comment: Performed By: #### HBA1C, TS H, LIPNF #### [facility] [address] [place] [id number] Calcium [Mass/Vol] 10.2 8.5-10.2 mg/dL Normal 02-15-2020 [facility] (47545) Comment: Performed By: #### HBA1C, TS H, LIPNF #### [place] [address] Chloride [Moles/Vol] 100 97-105 mmol/L Normal 0 [facility] (14474) Comment: Performed By: #### HBA1C, TS H, LIPNF #### [facility] [place] [id number] CO2 [Moles/Vol] 26 22-30 mmol/L Normal 02-15-2020 [facility] (29376) Comment: Performed By: #### HBA1C, TS H, LIPNF #### [facility] [place] [id number] Creatinine [Mass/Vol] 0.92 0.58-0.96 mg/dL Normal 02-15-20 20 [facility] (37174) Comment: Performed By: #### HBA1C, TS H, LIPNF #### [facility] [place] [id number] eGFR- Amer. >60 Normal 02-15-2020 [facility] (90512) Comment: Performed By: #### HBA1C, TS H, LIPNF #### [facility] [address] [place], [place] [address] GFR/1.73 sq M predicted >60 mL/min/{1.73_m2} Normal 02-15-2020 [facility] among non-blacks MDRD [facility] (30368) (S/P/Bld) [Vol rate/Area] Comment: Result Comment: eGFR [...] By: #### HBA1C TS H, LIPNF #### [facility] [address] [place], [place] [address] Glucose [Mass/Vol] 89 74-99 mg/dL Normal 02-15-2020 [facility] (12133) Comment: Result Comment: The [place] Diabetes Association (ADA) provides guidance for cutoff [...] for diagnosis of diabetes. Reference: Standards of [facility] Care in Diabetes 2016, [place] [employer] Association. Diabetes Care. 2016.39(Suppl 1). Performed By: #### HBA1C, TS H, LIPNF #### [facility] [address] [place], [place] [address] Potassium [Moles/Vol] 3.7 3.7-5.1 mmol/L Normal 02-15-20 20 [facility] (30814) Comment: Performed By: #### HBA1C, TS H, LIPNF #### [facility] [address] [place], [place] [address] Protein [Mass/Vol] 7.8 6.3-8.0 g/dL Normal 02-15-2020 [facility] (86646) Comment: Performed By: #### HBA1C, TS H, LIPNF #### [facility] [address] [place], [place] [id number] Sodium [Moles/Vol] 139 136-144 mmol/L Normal 02-15-2020 [facility] (88663) Comment: Performed By: #### HBA1C, TS H, LIPNF #### [facility] [address] [place], [place] [address] Urea nitrogen [Mass/Vol] 9 7-21 mg/dL Normal 02-14 [facility] (09109) Comment: Performed By: #### HBA1C, TS H, LIPNF #### [facility] [address] [place], [place] [address] cnov on 2020-02-15 CNOV Office Visit (FAMPWS) Normal 02-15-[address] [place] [address] [facility] SALLY MCGREGOR ([id number]) 1980 [facility] Date Time Provider Department ([id number]) 02/15/20 2:20 PM MARCELINO MEJIA FAMPWS During [...] at today?s visit. Patient was sen in [facility] ER on 02/01/2020 with C/O epigastric pain [...] home. Patient was seen in the [facility] care yesterday f or mouth sores [...] diagnosis) - CONSULT TO GASTROENTEROLOGY: [facility] in [place] - Cont prn phenergan. 2. Tongue ulcer [...] (METRONIDAZOLE HCL) 03/11/2010 12 - Shortness of [place] th IBUPROFEN 06/18/2016 8 - GI Upset PREDNISONE 06/18/2016 14 - Other: See Comments Comments: makes agitated and mean Date Reviewed: 02/15/2020 Reviewed by: Marcelino Mejia - Fully Assessed Reason for Visit: Transition Of Care [4074] Cmt: [facility] pancreatitis Reason For Visit History Recorded Primary Visit Diagnosis:Acute pancreatitis without infection or necrosis, unspecified pancreatitis type [K85.90] Other Visit Diagnoses:Tongue ulcer [K14.0] Poor dentition [K08.9] Thrush [B37.0] Order(s):CONSULT TO GASTROENTEROLOGY [9060] Order #: 1 [id number]: 1 FUTURE triamcinolone (KENALOG IN ORABASE) 0.1 [...] Abs Baso 0.07 <0.11 k/uL Normal 02-15-2020 [facility] (12055) Comment: Performed By: #### HBA1C, TS H, LIPNF #### [facility] [address] [place], [place] [address] Abs Berrien 0.53 <0.87 k/uL Normal 02-15-2020 [facility] (70749) Comment: Performed By: #### HBA1C, TS H, LIPNF #### [facility] [address] [place], [place] [address] Abs Neut 6.05 1.45-7.50 k/uL Normal 02-15-2020 [facility] (21831) Comment: Performed By: #### HBA1C, TS H, LIPNF #### [facility] [address] [place], [place] [address] Absolute nRBC <0.01 <0.01 Normal 02-15-2020 [facility] (59934) Comment: Performed By: #### HBA1C, TS H, LIPNF #### [facility] [place] [address] Basophils/100 WBC (Bld) 0.7 % Normal 2019 [facility] (33686) Comment: Performed By: #### HBA1C, TS H, LIPNF #### [facility] [address] [place] [address] DTYPE Auto Diff Normal 02-15-2020 [facility] (94210) Comment: Performed By: #### HBA1C, TS H, LIPNF #### [place] [address] Eosinophils (Bld) [#/Vol] 0.38 <0.46 k/uL Normal [facility] (56110) Comment: Performed By: #### HBA1C, TS H, LIPNF #### [facility] [place] [address] Eosinophils/100 WBC (Bld) 3.9 % Normal [facility] (24297) Comment: Performed By: #### HBA1C, TS H, LIPNF #### [facility] [place] [address] Erythrocyte distribution 14.7 11.5-15.0 % Normal 02-14 [facility] width (RBC) [Ratio] [facility] (13485) Comment: Performed By: #### HBA1C, TS H, LIPNF #### [facility] [address] [place], [place] [address] Hematocrit (Bld) [Volume 40.4 36.0-46.0 % Normal 02-14 [facility] (44923) Comment: Performed By: #### HBA1C, TS H, LIPNF #### [address] [address] Hemoglobin (Bld) 12.0 11.5-15.5 g/dL Normal 02-15-2020 [facility] [Mass/Vol] [facility] (33510) Comment: Performed By: #### HBA1C, TS H, LIPNF #### [place] [address] Lymphocytes (Bld) [#/Vol] 2.77 1.00-4.00 k/uL Normal [facility] (24382) Comment: Performed By: #### HBA1C, TS H, LIPNF #### [address] [address] Lymphocytes/100 WBC (Bld) 28.3 % Normal [facility] (14917) Comment: Performed By: #### HBA1C, TS H, LIPNF #### [address] [address] MCH (RBC) [Entitic mass] 28.6 26.0-34.0 pG Normal 02-14 [facility] (74381) Comment: Performed By: #### HBA1C, TS H, LIPNF #### [address] [address] MCHC (RBC) [Mass/Vol] 29.7 30.5-36.0 g/dL Low 02-15-20 [facility] (49180) Comment: Performed By: #### HBA1C, TS H, LIPNF #### [address], [place] [address] MCV (RBC) [Entitic vol] 96.4 80.0-100.0 fL Normal 02-14 [facility] (71926) Comment: Performed By: #### HBA1C, TS H, LIPNF #### [facility] [address] [place], [place] [address] Monocytes/100 WBC (Bld) 5.4 % Normal 2019 [facility] (34098) Comment: Performed By: #### HBA1C, TS H, LIPNF #### [facility] [address] [place], [place] [address] Neutrophils/100 WBC (Bld) 61.7 % Normal [facility] (69942) Comment: Performed By: #### HBA1C, TS H, LIPNF #### [facility] [address] [place], [place] [address] NRBCs 0.0 0 /100 WBC Normal 02-15-2020 [facility] (59234) Comment: Performed By: #### HBA1C, TS H, LIPNF #### [facility] [address] [place], [place] [address] Platelet mean volume 10.6 9.0-12.7 fL Normal 0 [facility] (Bld) [Entitic vol] [facility] (95313) Comment: Performed By: #### HBA1C, TS H, LIPNF #### [facility] [address] [place], [place] [address] Platelets (Bld) [#/Vol] 435 150-400 k/uL High 2019 [facility] (51137) Comment: Performed By: #### HBA1C, TS H, LIPNF #### [facility] [address] [place], [place] [address] RBC (Bld) [#/Vol] 4.19 3.90-5.20 m/uL Normal 02-15-2020 [facility] (36718) Comment: Performed By: #### HBA1C, TS H, LIPNF #### [facility] [address] [place], [place] [address] WBC (Bld) [#/Vol] 9.80 3.70-11.00 k/uL Normal 02-15-2020 [facility] (67817) Comment: Performed By: #### HBA1C, TS H, LIPNF #### [facility] [address] [place], [place] [address] amylase on Amylase [Catalytic 52 30-104 U/L Normal 02-15-2020 [facility] activity/Vol] [place] and (45140) Comment: Performed By: #### HBA1C, TS H, LIPNF #### [facility] [address] [place], [place] [address] progress on 2020-02 PROGRESS HNO ID: [id number] Normal 02-14-2020 [facility] Author: Jessica Coppola) [facility] ([id number]) Service: ? Author Type: Physician Ceiling Cleaner Type: Progress Notes Filed: 02/14/2020 1:14 PM Note Text: This note was created using [employer]. Subjective Sally Mcgregor is a 39 year [...] Benign liver cyst 05/24/2010 CT scan at [facility] 11/2009 and 04/2010 showe 4 mm increase in size . No pain. No elevated LFTs on 03/11/2010. - Calculus of kidney 05/17/[address] Nicolas: Hospitalized age 20, and again later -- no procedures so far ([facility], [facility], 1995 [facility]) - Dysmenorrhea - Impaired fasting glucose 05/17/2008 [...] MG DAILY September 02, 2019 5:34am 09-02-2019 [facility] ([id number]) - ondansetron orally disintegrating (ZOFRAN ODT) 4 [...] Approx. 3 cigarettes daily-1 pack every w kaw Substance Use Topics - Alcohol use: Yes [...] Sp. Request/Comment: - Swab Critical ly 02-14-2020 [facility] abnormal [facility] Culture Result - Few Neris glabrata --> ABNORMAL ALERT (72514) Comment: Performed By: #### HBA1C, TS H, LIPNF #### [facility] [address] [place] [address] cnov on 2020-02-14 CNOV Office Visit (UCWSTR) Normal 02-14-20 [facility] SALLY MCGREGOR ([id number]) 1980 [facility] Date Time Provider Department ([id number]) 02/14/20 12:45 PM JESSICA JESUS (CHAZ) UCWSTR [...] Benign liver cyst 05/24/2010 CT scan at [facility] 11/2009 and 04/2010 showe 4 mm increase in size . No pain. No elevated LFTs on 03/11/2010. - Calculus of kidney 05/17/[address] Nicolas: Hospitalized age 20, a nd again later -- no procedures so far ([facility], [facility], 1995 [facility]) - Dysmenorrhea - Impaired fasting glucose 05/17/2008 [...] DAILY September 02, 2019 5:34am 12-20-2 019 [facility] ([id number]) - ondansetron orally disintegrating (ZOFRAN ODT) 4 [...] removed - TOTAL ABDOM HYSTERECTOMY 08/31/06 Hysterectomy, [facility] FAMILY HISTORY Problem Relation Age of [...] Approx. 3 cigarettes daily-1 pack every w kaw Substance Use Topics - Alcohol use: Yes [...] (METRONIDAZOLE HCL) 03/11/2010 12 - Shortness of [place] th IBUPROFEN 06/18/2016 8 - GI Upset [...] mLRfl: 0 FUNGAL SCREEN [SQFUNGSC] Order #: [id number] Prescriptions as of 02/14/2020 Sig: PROMETHAZINE 25 [...] JESUS PA-C on 02/14/20 cnpn on 2020-02-13 [facility]) Normal 02-13-2020 [facility] SALLY Martinez ([id number]) 1980 Donato Mata Date Time Provider Department ([id number]) 02/13/20 MARCELINO MEJIAPWS During your visit today, we recorded the following informati on about you: Christopher Carcamo RN 02/13/2020 10:27 AM Signed Patient reports she was discharged from [facility] yesterday, after a 4 day stay, for pancreatitis. Scheduled f/u visit with PA, for tomorro w. Patient asking note be sent to provider also. Reports she still has a sore on he r tongue, [facility] doctor was not concerned about it. She [...] (METRONIDAZOLE HCL) 03/11/2010 12 - Shortness of [place] th IBUPROFEN 06/18/2016 8 - GI Upset PENICILLINS 12/07/2009 2 - Rash PREDNISONE 06/18/2016 14 - Other: See Comments Comments: makes agitated and mean Date Reviewed: 01/02/2020 Reviewed by: Ashley Lehman Ma - Fully Assessed Reason for Visit: [facility] visit [Other] Prescriptions as of 02/13/2020 Sig: [...] Encounter Status:Closed by ROXANNE PATEL on 02/13/[facility] Normal 02-09-2020 [facility] SALLY MCGREGOR ([id number]) 1980 [facility] Date Time Provider Department ([id number]) 02/09/20 [facility] During your visit today, we recorded [...] calls back, stating she is currently at [facility] ER. States she had labs done and [...] 02/09/20 progress on 2020-01 PROGRESS HNO ID: [id number] Normal 02-08-2020 [facility] Author: Isabel Romero) Hugo Mata ([id number]) Service: ? Author Type: Physician Ceiling Cleaner Type: Progress Notes Filed: 02/08/2020 10:57 AM [...] per patient report who presented to the [facility] ED on 02/01/20 with i ntermittent epigastric [...] seroquel and she has talked with ps [facility] office for what to do next. She has been taking oxycodone every 4 hours but has not need any yet today. Does mention a sore on her forearm. States getting worse. Red and hardened. 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 States she noticed it first in hospital. She is unable to send picture or have video conference. Is w illing to come to . HISTORY REVIEWED (electronic chart updated): - medical history - medications - allergies REVIEW OF SYSTEMS: As noted in HPI PHYSICAL EXAMINATION: [facility] 08/10/2006 No vitals taken. Deferred physical [...] minutes progress on 2020-01 PROGRESS HNO ID: [id number] Normal 02-07-2020 [facility] Author: Yvette Huffman RN [facility] ([id number]) Service: ? Author Type: ? Type: Progress [...] might be hidden SUMMARY: -Pt discharged from [facility] on 02-05-2020. -Follow up appointment on 02-08-2020. -Medication review done yes. -Admitted for: Acute pancreatitis CONCERNS: Pt worried about pain control, is using oxycodone as ordered NEW MEDICATIONS: Oxycodone [Oxyir] 10 mg PO Q4H PRN PRN 5 Days #60 tablet PRN Reason: severe pain Transmission Status: Received by BENTLEY CARVALHOVELAND LNACE Pantoprazole Sodium [Protonix] 20 mg PO BID [...] per patient report who presented to the [facility] ED on 02/01/20 with i ntermittent epigastric [...] CNPTOUTREACH Patient Outreach (FAMPWS) Normal 0 02-07-2020 [facility] Debra SALLY MCGREOGR ([id number]) 1980 [facility] Time Provider Department ([id number]) 02/07/20 MARCELINO MEJIA During your visit today, [...] might be hidden SUMMARY: -Pt discharged from [facility] on 02-05-2020. -Follow up appointment on 02-08-2020. [...] a 39 y/o F w/ PMHx: Obesity, Wool Presser nghia Pain Syndrome, Migraines, Known Lung Nodules, Hx Uteri ne CA, Hx Nephrolithiasis, Tobacco use, Anxiety and Depression with Suspected Bipolar disorder recently starte d on seroquel and sertraline, Recent Dental ev aluation with Infection on clindamycin with planned upcoming removal in 4-6 week s per patient report who presented to the [facility] ED on 02/01/20 with intermittent epigastric pain [...] (METRONIDAZOLE HCL) 03/11/2010 12 - Shortness of [place] th IBUPROFEN 06/18/2016 8 - GI Upset [...] 02/07/20 emergency report on 2020-01-28 EMERGENCY REPORT [facility] Normal 01-27 [facility]ital EMERGENCY ROOM REPORT ([id number]) NAME ACCOUNT SEX AGE ADMIT DISCHARGE PT MED. RECORD# NUMBER DATE DATE TYPE SAM, [id number] F 39 01/20/20 01/21/20 [place] ZHENG [id number] ROOM: ER DATE OF : 1980 DICTATING [...] PHYSICAL EXAMINATION: Physic al examination reveals a rij-lup-hlqprnwsb female in no acute distress, resting c [...] plan for transfer to an outside hospi [facility] for further management. Discussed the patient with Dr. Coleman at [facility], who accepted the patient for admission. The patient was transferred to [facility] in stable condition. Dictated By: Ana Alcantar MD 01/21/20 01:30 JOB #: [id number] Transcribed By: thanh 01/21/20 10:04 Electronically signed by: Jennifer Perez MD 01/28/20 00:29 Page 2 of 2 SALLY MCGREGOR Emergency Room Report myco on 2020-01-26 Mycoplasma IgG POS Normal 01-26-2020 [facility] ([place]) ([id number]) Comment: Result Comment: INTERPRETATI ON OF MYCOPLASMA [...] CBC, ADIF F, ANEU, BMP, GFR #### [place] [address] progress on 2020-01 PROGRESS HNO ID: [id number] Normal 01-25-2020 [facility] Author: Roxanne Patel MA ([id number]) Service: ? Author Type: Project Developer Type: Progress Notes Filed: 01/25/2020 7:39 AM Note Text: Te made to get setup. Roxanne Patel MA cnpn on 2020-01-25 CNPN Telephone (FAMPWS) Normal 01-25-2020 [facility] SALLY MCGREGOR ([id number]) 1980 [facility] Date Time Provider Department ([id number]) 01/25/20 ISABEL ARIAS) [facility] During your visit today, we [...] (METRONIDAZOLE HCL) 03/11/2010 12 - Shortness of [place] th IBUPROFEN 06/18/2016 8 - GI Upset [...] 01/26/20 progress on 2020-01 PROGRESS HNO ID: [id number] Normal 01-24-2020 [facility] Author: Isabel (Pa-Kimmie) Hugo Mata ([id number]) Service: ? Author Type: Physician Ceiling Cleaner Type: Progress Notes Filed: 01/24/2020 4:03 PM Note Text: DISTANCE HEALTH VISIT This Team Access Model visit is a phone encounter. It requir ed patient-provider interaction for the medical decision making as documented below. No video was used for evaluation of this patient. Patient consents to visit. Patient's location: [place] Chief Complaint No chief complaint on file. [...] patient was to see pain specialist in [facility]. She has missed or cancelled appointments [...] over the weekend. She was transferred to [place]. Reports n ot available but patient states ECHO and labs were normal. . States she received a phone call from an mahnomen And was told negative for Covid. But [...] pharmacy. She did receive phone call from vault manager last week and w ill be set up for heart monitor. She was suppose to have stress testing done at [facility] today and Carotid US done yesterday, but [...] Benign liver cyst 05/24/2010 CT scan at [facility] 11/2009 and 04/2010 showe 4 mm increase in size . No pain. No elevated LFTs on 03/11/2010. - Calculus of kidney 05/17/[address] Nicolas: Hospitalized age 20, and again later -- no procedures so far ([facility], [facility], 1995 [facility]) - Dysmenorrhea - Impaired fasting glucose 05/17/2008 [...] removed - TOTAL ABDOM HYSTERECTOMY 08/31/06 Hysterectomy, [facility] Family History FAMILY HISTORY Problem Relation [...] MG DAILY September 02, 2019 5:34am 09-02-2019 [facility] ([id number]) - ondansetron orally disintegrating (ZOFRAN ODT) 4 [...] mg capsule Take 1 capsule by mo vah daily at bedtime for 90 days. - [...] Approx. 3 cigarettes daily-1 pack every w kaw Substance Use Topics - Alcohol use: Yes [...] - ICD9: 786.59, ICD10: R07.89 Continue with vault manager. Will attempt to get records to [...] minutes covid on 2020-01-24 COVID 19 Result REMOTE ADVISOR See Below [facility] Normal 01-24-2020 [facility]ending [facility] To [facility] ([place]) (0000 0) Comment: Result Comment: Negative Negative for COVID19 (SARS C oV2) by PCR. This test was developed and its performance characteristics determined by [facility] [place]. This test has bee n authorized by [...] issued on November 12, 2019. Performed By: [facility] [employer] [place] [address] Winding Inspector And Tester: Raphael liriano III, M.D. CLIA#: [id number] Phone#: Performed By: #### CBC, ADIF F, ANEU, BMP, GFR #### [place] [address] COVID 19 Source REMOTE ADVISOR See Below Normal 01-24-2020 [facility] ([place] (51786) Comment: Result Comment: Nasopharynge al Swab Performed By: [facility] [employer] [address] [place] [address] Winding Inspector And Tester: Raphael liriano III, M.D. CLIA#: [id number] Phone#: Performed By: #### CBC, ADIF F, ANEU, BMP, GFR #### [address] [address] myco on 2020-01-23 Mycoplasma IgM Negative Normal 01-23-2020 [facility] ([place]) ([id number]) Comment: Result Comment: INTERPRETATI ON OF MYCOPLASMA [...] ADIF F, ANEU, BMP, GFR #### [address] [address] crp on 2020-01-23 CRP [Mass/Vol] 0.57 <=0.80 mg/dL Normal 01-23-2020 [facility] ([place]) (19773) Comment: Performed By: #### CBC, ADIF F, ANEU, BMP, GFR #### [address] [address] cnpn on 2020-01-23 CNPN Telephone (FAMPWS) Normal 01-23-2020 [facility] SALLY MCGREGOR ([id number]) 1980 F [facility] Date Time Provider Department ([id number]) 01/23/20 ISABEL ARIAS (MAYA) FAMPWS During your visit today, we recorded the following informati on about you: Lexy Tapia RN 01/23/2020 8:55 AM Signed fyi-Patient calls to report that she went to [facility] with chest pain. Transferred to [facility] and Echo was normal. She will have [...] Please reschedule her for later this w kaw so we have time to get the [...] insurance there is not Uber drivers in [facility] so waiting o n community action [...] 14.1 11.5-15.5 % Normal 01-22 [facility] (RBC) [Ratio] [facility] ([place]) (23331) Comment: Performed By: #### CBC, ADIF F, ANEU, BMP, GFR #### [address] [address] Hematocrit (Bld) [Volume 35.6 34.0-46.0 % Normal 01-22 [facility] fraction] ([place]) (0000 0) Comment: Performed By: #### CBC, ADIF F, ANEU, BMP, GFR #### [address] [address] Hemoglobin (Bld) 11.9 12.0-16.0 G/dL Low 01-23-2020 [facility] [Mass/Vol] ([place]) (000 00) Comment: Performed By: #### CBC, ADIF F, ANEU, BMP, GFR #### [address] [address] MCH (RBC) [Entitic mass] 30.0 27.0-33.0 pg Normal 01-22 [facility] ([place]) (0000 0) Comment: Performed By: #### CBC, ADIF F, ANEU, BMP, GFR #### [address] [address] MCHC (RBC) [Mass/Vol] 33.4 32.0-36.0 G/dL Normal 01-23-20 20 [facility] ([place]) (0000 0) Comment: Performed By: #### CBC, ADIF F, ANEU, BMP, GFR #### [address] [address] MCV (RBC) [Entitic vol] 89.8 80.0-99.0 fL Normal 2019 [facility] ([place]) (0000 0) Comment: Performed By: #### CBC, ADIF F, ANEU, BMP, GFR #### [place] [id number] Platelet mean volume 8.5 6.6-10.5 fL Normal 0 Pending Sale To [facility] (Bld) [Entitic vol] ([place]) (13748) Comment: Performed By: #### CBC, ADIF F, ANEU, BMP, GFR #### [address] [address] Platelets (Bld) [#/Vol] 235 150-450 10 3/mcL Normal 2019 Pending Sale To [facility] ([place]) (44999) Comment: Performed By: #### CBC, ADIF F, ANEU, BMP, GFR #### [address] [address] RBC (Bld) [#/Vol] 3.97 4.10-5.30 10 6/mcL Low 01-23-2020 [facility] ([place]) (0000 0) Comment: Performed By: #### CBC, ADIF F, ANEU, BMP, GFR #### [address] [address] WBC (Bld) [#/Vol] 10.20 4.50-10.80 10 3/mcL Normal 01-23-2020 Pending Sale To [facility] ([place]) (25324) Comment: Performed By: #### CBC, ADIF F, ANEU, BMP, GFR #### [address] [address] bmp on 2020-01-23 Creatinine [Mass/Vol] 0.94 0.50-1.20 mg/dL Normal 01-23-20 20 Pending Sale To [facility] ([place] (49813) Comment: Performed By: #### CBC, ADIF F, ANEU, BMP, GFR #### [address] [address] Urea nitrogen/Creatinine 20.2 10.0-22.0 ratio Normal 01-22 [facility] [Mass ratio] [facility] ([place]) (86198) Comment: Performed By: #### CBC, ADIF F, ANEU, BMP, GFR #### [address] [address] Calcium [Mass/Vol] 9.4 8.4-10.1 mg/dL Normal 01-23-2020 Pending Sale To [facility] ([place] (0000 0) Comment: Performed By: #### CBC, ADIF F, ANEU, BMP, GFR #### [address] [address] Chloride [Moles/Vol] 106 98-110 mEq/L Normal 0 Pending Sale To [facility] ([place]) (0000 0) Comment: Performed By: #### CBC, ADIF F, ANEU, BMP, GFR #### [address] [address] CO2 [Moles/Vol] 28 22-32 mEq/L Normal 01-23-2020 [facility]ly [facility] ([place]) (72537) Comment: Performed By: #### CBC, ADIF F, ANEU, BMP, GFR #### [address] [address] Electrolyte Balance 6.0 4.0-15.0 mEq/L Normal 01-23-2020 Pending Sale To [facility] ([place] (0000 0) Comment: Performed By: #### CBC, ADIF F, ANEU, BMP, GFR #### [address] [address] Glucose [Mass/Vol] 91 70-110 mg/dL Normal 01-23-2020 Pending Sale To [facility] ([place] (44126) Comment: Performed By: #### CBC, ADIF F, ANEU, BMP, GFR #### [address] [address] Potassium [Moles/Vol] 4.2 3.5-5.0 mEq/L Normal 01-23-20 20 Pending Sale To [facility] ([place] (0000 0) Comment: Performed By: #### CBC, ADIF F, ANEU, BMP, GFR #### [address] [address] Sodium [Moles/Vol] 140 136-145 mEq/L Normal 01-23-2020 Pending Sale To [facility] ([place] (51701) Comment: Performed By: #### CBC, ADIF F, ANEU, BMP, GFR #### [address] [address] Urea nitrogen [Mass/Vol] 19.0 8.0-22.0 mg/dL Normal 01-22 Pending Sale To [facility] ([place] (70480) Comment: Performed By: #### CBC, ADIF F, ANEU, BMP, GFR #### [address] [address] .morph on 2020-01-13 1 Platelets (Bld) [#/Vol] Normal Normal 2019 Pending Sale To [facility] ([place]) (45073) Comment: Result Comment: Few large pl atelets seen. Performed By: #### CBC, ADIF F, ANEU, BMP, GFR #### [address] [address] RBC morphology finding Nom Normal Normal Pending Sale To [facility] (d) ([place]) (0000 0) Comment: Performed By: #### CBC, ADIF F, ANEU, BMP, GFR #### [address] [address] .manual diff on -01-22 Basophil %, Manual 0.0 0.0-2.5 % Normal 01-23-2020 Pending Sale To [facility] ([place]) (07788) Comment: Performed By: #### CBC, ADIF F, ANEU, BMP, GFR #### [address] [address] Basophil, Abs Manual 0.00 0.00-0.27 10 3/mcL Normal 0 Pending Sale To [facility] ([place] (34354) Comment: Performed By: #### CBC, ADIF F, ANEU, BMP, GFR #### [address] [address] Cells Counted 100 Normal 01-23-2020 [facility] ([place]) (00084) Comment: Performed By: #### CBC, ADIF F, ANEU, BMP, GFR #### [address] [address] Eosinophil %, Manual 0.0 0.0-6.0 % Normal 0 Pending Sale To [facility] ([place] (20748) Comment: Performed By: #### CBC, ADIF F, ANEU, BMP, GFR #### [address] [address] Eosinophil, Abs Manual 0.00 0.00-0.65 10 3/mcL Normal 020 Pending Sale To [facility] ([place] (29754) Comment: Performed By: #### CBC, ADIF F, ANEU, BMP, GFR #### [place] [address] Lymphocyte %, Manual 16.0 20.0-40.0 % Low 0 Pending Sale To [facility] ([place] (24869) Comment: Performed By: #### CBC, ADIF F, ANEU, BMP, GFR #### [address] [address] Lymphocyte, Abs Manual 1.63 0.90-4.32 10 3/mcL Normal 020 Pending Sale To [facility] ([place] (63093) Comment: Performed By: #### CBC, ADIF F, ANEU, BMP, GFR #### [place] [id number] Monocyte %, Manual 5.0 2.0-13.0 % Normal 01-23-2020 Pending Sale To [facility] ([place] (21385) Comment: Performed By: #### CBC, ADIF F, ANEU, BMP, GFR #### [place] [id number] Monocyte, Abs Manual 0.51 0.09-1.40 10 3/mcL Normal 0 Pending Sale To [facility] ([place] (97656) Comment: Performed By: #### CBC, ADIF F, ANEU, BMP, GFR #### [address] [address] Neutrophil %, Manual 79.0 50.0-75.0 % High 0 Pending Sale To [facility] ([place] (26325) Comment: Performed By: #### CBC, ADIF F, ANEU, BMP, GFR #### [place] [address] Neutrophil, Abs Manual 8.06 2.25-8.10 10 3/[facility] Normal 020 Pending Sale To [facility] ([place] (40122) Comment: Performed By: #### CBC, ADIF F, ANEU, BMP, GFR #### [address] [address] .gfr on 2020-01-23 GFR >60 Normal 0 Pending Sale To [facility] ([place]) (63253) Comment: Result Comment: GFR Population mean for Afri can Beninese, Non- Americans Ages 20-29 = 116 mL/min/1.73 [...] CBC, ADIF F, ANEU, BMP, GFR #### [place] [address] GFR Non- >60 Normal 01-22 -2019 Pending Sale To [facility] ([place]) (47990) Comment: Result Comment: GFR Population mean for Afri can Beninese, Non- Americans Ages 20-29 = 116 mL/min/1.73 [...] ADIF F, ANEU, BMP, GFR #### [address] [address] spag on 2020-01-22 SPAG . Normal 01-22-2020 [facility] - Microbiology [facility] ([facility] (21010) PROCEDURE: Streptococcus Pneumoniae Urine Antig [^1 *1] [...] Locations *1: This test was performed at: [facility], [address] [place] [address], [address]- , [place] Comment: Performed By: #### CBC, ADIF F, ANEU, BMP, GFR #### [address] [address] respid on 2020-01-13 0 Adenovirus Not Detected Not Detected Normal 01-22-2020 [facility] ([place]) (0000 0) Comment: Performed By: #### CBC, ADIF F, ANEU, BMP, GFR #### [address] [address] Bordetella Not Detected Not Detected Normal 01-22-2020 [facility] Parapertussis Founda tion ([place]) (07544) Comment: Performed By: #### CBC, ADIF F, ANEU, BMP, GFR #### [address] [address] Bordetella Pertussis Not Detected Not Detected Normal Pending Sale To [facility] ([place]) (75864) Comment: Performed By: #### CBC, ADIF F, ANEU, BMP, GFR #### [address] [address] Chlamydophila Not Detected Not Detected Normal 01-22-2020 [facility] pneumoniae Foundatio n ([place]) (57691) Comment: Performed By: #### CBC, ADIF F, ANEU, BMP, GFR #### [address] [address] Coronavirus 229E Not Detected Not Detected Normal [facility] (Not COVID-19) Found ation ([place]) (72890) Comment: Performed By: #### CBC, ADIF F, ANEU, BMP, GFR #### [address] [address] Coronavirus HKU1 Not Detected Not Detected Normal 020 [facility] COVID-19[facility] (43231) Comment: Performed By: #### CBC, ADIF F, ANEU, BMP, GFR #### [address] [address] Coronavirus NL63 Not Detected Not Detected Normal 020 [facility] (Not COVID-19) Found ation ([place]) (06812) Comment: Performed By: #### CBC, ADIF F, ANEU, BMP, GFR #### [address] [address] Coronavirus OC43 Not Detected Not Detected Normal 020 [facility] (Not COVID-19) Found ation ([place]) (25600) Comment: Performed By: #### CBC, ADIF F, ANEU, BMP, GFR #### [place] [address] Human Metapneumovirus Not Detected Not Detected Normal Pending Sale To [facility] ([place] (33534) Comment: Performed By: #### CBC, ADIF F, ANEU, BMP, GFR #### [place] [address] Influenza A Not Detected Not Detected Normal 01-22-2020 A [facility] ([place] (0000 0) Comment: Performed By: #### CBC, ADIF F, ANEU, BMP, GFR #### [place] [address] Influenza B Not Detected Not Detected Normal 01-22-2020 A [facility] ([place] (0000 0) Comment: Performed By: #### CBC, ADIF F, ANEU, BMP, GFR #### [place] [address] Mycoplasma Not Detected Not Detected Normal 01-22-2020 [facility] pneumoniae Foundatio n ([place]) (28827) Comment: Performed By: #### CBC, ADIF F, ANEU, BMP, GFR #### [place] [address] Parainfluenza 1 Not Detected Not Detected Normal 01-22-20 20 Pending Sale To [facility] ([place] (01632) Comment: Performed By: #### CBC, ADIF F, ANEU, BMP, GFR #### [place] [address] Parainfluenza 2 Not Detected Not Detected Normal 01-22-20 20 Pending Sale To [facility] ([place] (14847) Comment: Performed By: #### CBC, ADIF F, ANEU, BMP, GFR #### [place] [address] Parainfluenza 3 Not Detected Not Detected Normal 01-22-20 Pending Sale To [facility] ([place] (60886) Comment: Performed By: #### CBC, ADIF F, ANEU, BMP, GFR #### [place] [address] Parainfluenza 4 Not Detected Not Detected Normal 01-22-20 Pending Sale To [facility] ([place] (39448) Comment: Performed By: #### CBC, ADIF F, ANEU, BMP, GFR #### [address] [address] Respiratory Not Detected Not Detected Normal 01-22-2020 [facility] Syncytial Virus Foun dation ([place]) (65643) Comment: Performed By: #### CBC, ADIF F, ANEU, BMP, GFR #### [address] [address] Rhinovirus/Enterovirus Not Detected Not Detected Normal 0 01-22-2020 Pending Sale To [facility] ([place] (85662) Comment: Performed By: #### CBC, ADIF F, ANEU, BMP, GFR #### [address] [address] sonali on 2020-01-22 SONALI . Normal 01-22-2020 [facility] MICRO - Microbiology [facility] ([place]) (07089) PROCEDURE: Legionella Urine Ag [*1] SOURCE: Urine [...] Locations *1: This test was performed at: [facility], [address] [place] [address], [address]- , [place] Comment: Performed By: #### CBC, ADIF F, ANEU, BMP, GFR #### [address] [address] ldh on 2020-01-22 LDH 194 120-246 U/L Normal 01-22-2020 [facility]) (26346) Comment: Performed By: #### CBC, ADIF F, ANEU, BMP, GFR #### [facility] [address] [place] [address] fib on 2020-01-22 Fibrinogen 414 250-550 mg/dL Normal 01-22-2020 Pending Sale To [facility] ([place]) (79247) Comment: Performed By: #### CBC, ADIF F, ANEU, BMP, GFR #### [facility] [address] [place] [address] ferr on 2020-01-22 Ferritin [Mass/Vol] 40 8-252 ng/mL Normal 01-22-2020 Pending Sale To [facility] ([place]) (73303) Comment: Performed By: #### CBC, ADIF F, ANEU, BMP, GFR #### [facility] [address] [place] [address] dimer on 2020-01-22 Fibrin D-dimer FEU IA <200 0-230 ug/mL Normal 01-22-20 20 Pending Sale To [facility] (d) [Mass/Vol] ([place] ) (32978) Comment: Result Comment: Results repo rted in [...] CBC, ADIF F, ANEU, BMP, GFR #### [facility] [address] [place] [address] angiography chest w/contrast on 2020-01-22 CT ANGIOGRAPHY ORIGINAL Normal 01-22-2020 [facility] CHEST W/CONTRAST CT PULMONARY ANGIOGRAM WITH IV CONTRAST: with post-processing, volume rendering and 3-D acquisitions. This exam was performed according to our departmental dose optimization program, and includes the [facility] ([place]) llowing measures where appli cable: automated exposure control, adjustment of the mAs and/or kVp according to patient size and/or exam, and an iterative reconstruction algorithm. Patient received 13 hour (77294) contrast allergy preparation. CLINICAL STATEMENT: elevated d [...] Erythrocyte distribution 13.7 11.5-15.5 % Normal 01-21 [facility] width (RBC) [Ratio] Foundation ([place]) (68638) Comment: Performed By: #### CBC, ADIF F, ANEU, BMP, GFR #### [facility] [address] [place] [address] Hematocrit (Bld) [Volume 36.0 34.0-46.0 % Normal 01-21 Pending Sale To [facility] fraction] ([place]) (0000 0) Comment: Performed By: #### CBC, ADIF F, ANEU, BMP, GFR #### [place] [address] Hemoglobin (Bld) 11.9 12.0-16.0 G/dL Low 01-22-2020 [facility] [Mass/Vol] ([place]) (000 00) Comment: Performed By: #### CBC, ADIF F, ANEU, BMP, GFR #### [place] [address] MCH (RBC) [Entitic mass] 29.6 27.0-33.0 pg Normal 01-21 Pending Sale To [facility] ([place]) (0000 0) Comment: Performed By: #### CBC, ADIF F, ANEU, BMP, GFR #### [place] [address] MCHC (RBC) [Mass/Vol] 33.0 32.0-36.0 G/dL Normal 01-22-20 20 Pending Sale To [facility] ([place]) (0000 0) Comment: Performed By: #### CBC, ADIF F, ANEU, BMP, GFR #### [place] [address] MCV (RBC) [Entitic vol] 89.8 80.0-99.0 fL Normal 2019 Pending Sale To [facility] ([place]) (0000 0) Comment: Performed By: #### CBC, ADIF F, ANEU, BMP, GFR #### [place] [address] Platelet mean volume 8.6 6.6-10.5 fL Normal 0 Pending Sale To [facility] ([place]ld) [Entitic vol] ([place]) (36297) Comment: Performed By: #### CBC, ADIF F, ANEU, BMP, GFR #### [place] [id number] Platelets (Bld) [#/Vol] 269 150-450 10 3/mcL Normal 2019 Pending Sale To [facility] ([place]) (31281) Comment: Performed By: #### CBC, ADIF F, ANEU, BMP, GFR #### [address] [address] RBC (Bld) [#/Vol] 4.01 4.10-5.30 10 6/mcL Low 01-22-2020 [facility] ([place]) (0000 0) Comment: Performed By: #### CBC, ADIF F, ANEU, BMP, GFR #### [address] [address] WBC (Bld) [#/Vol] 12.20 4.50-10.80 10 3/mcL High 01-22-2020 Pending Sale To [facility] ([place] (0000 0) Comment: Performed By: #### CBC, ADIF F, ANEU, BMP, GFR #### [address] [address] bmp on 2020-01-22 Calcium [Mass/Vol] 9.5 8.4-10.1 mg/dL Normal 01-22-2020 Pending Sale To [facility] ([place] (0000 0) Comment: Performed By: #### CBC, ADIF F, ANEU, BMP, GFR #### [place] [id number] Chloride [Moles/Vol] 106 98-110 mEq/L Normal 0 Pending Sale To [facility] ([place] (0000 0) Comment: Performed By: #### CBC, ADIF F, ANEU, BMP, GFR #### [address] [address] CO2 [Moles/Vol] 24 22-32 mEq/L Normal 01-22-2020 [facility] ([place] (37214) Comment: Performed By: #### CBC, ADIF F, ANEU, BMP, GFR #### [address] [address] Creatinine [Mass/Vol] 0.76 0.50-1.20 mg/dL Normal 01-22-20 20 Pending Sale To [facility] ([place] (60336) Comment: Performed By: #### CBC, ADIF F, ANEU, BMP, GFR #### [address] [address] Electrolyte Balance 6.0 4.0-15.0 mEq/L Normal 01-22-2020 Pending Sale To [facility] ([place] (0000 0) Comment: Performed By: #### CBC, ADIF F, ANEU, BMP, GFR #### [address] [address] Glucose [Mass/Vol] 149 70-110 mg/dL High 01-22-2020 Pending Sale To [facility] ([place] (36425) Comment: Performed By: #### CBC, ADIF F, ANEU, BMP, GFR #### [address] [address] Potassium [Moles/Vol] 4.1 3.5-5.0 mEq/L Normal 01-22-20 Pending Sale To [facility] ([place] (0000 0) Comment: Performed By: #### CBC, ADIF F, ANEU, BMP, GFR #### [address] [address] Sodium [Moles/Vol] 136 136-145 mEq/L Normal 01-22-2020 Pending Sale To [facility] ([place] (96655) Comment: Performed By: #### CBC, ADIF F, ANEU, BMP, GFR #### [address] [address] Urea nitrogen [Mass/Vol] 12.0 8.0-22.0 mg/dL Normal 01-21 Pending Sale To [facility] ([place] (96354) Comment: Performed By: #### CBC, ADIF F, ANEU, BMP, GFR #### [address] [address] Urea nitrogen/Creatinine 15.8 10.0-22.0 ratio Normal 01-21 [facility] [Mass ratio] Foundat ion ([place]) (91397) Comment: Performed By: #### CBC, ADIF F, ANEU, BMP, GFR #### [address] [address] .neuabs on Neutrophils (Bld) 10.70 2.25-8.10 10 3/mcL High 01-22-2020 [facility] [#/Vol] [facility] ([place]) (54711) Comment: Performed By: #### CBC, ADIF F, ANEU, BMP, GFR #### [address] [address] .gfr on 2020-01-22 GFR Non- >60 Normal 01-21 Pending Sale To [facility] ([place] (24304) Comment: Result Comment: GFR Population mean for Afri can Beninese, Non- Americans Ages 20-29 = 116 mL/min/1.73 [...] CBC, ADIF F, ANEU, BMP, GFR #### [place] [id number] GFR >60 Normal 0 Pending Sale To [facility] ([place]) (64908) Comment: Result Comment: GFR Population mean for Afri can Beninese, Non- Americans Ages 20-29 = 116 mL/min/1.73 [...] ADIF F, ANEU, BMP, GFR #### [address] [address] .auto diff on 01-21 Ammonia (P) [Mass/Vol] 0.30 0.09-1.40 10 3/mcL Normal 01-21-2 020 Pending Sale To [facility] ([place]) (25133) Comment: Performed By: #### CBC, ADIF F, ANEU, BMP, GFR #### [address] [address] Basophils (Bld) 0.00 0.00-0.27 10 3/mcL Normal 01-22-2020 [facility] [#/Vol] [facility] ([place]) (76829) Comment: Performed By: #### CBC, ADIF F, ANEU, BMP, GFR #### [address] [address] Basophils/100 WBC (Bld) 0.3 0.0-2.5 % Normal 2019 Pending Sale To [facility] ([place] (0000 0) Comment: Performed By: #### CBC, ADIF F, ANEU, BMP, GFR #### [address] [address] Eosinophils (Bld) 0.00 0.00-0.65 10 3/mcL Normal 01-22-2020 [facility] [#/Vol] [facility] ([place]) (67880) Comment: Performed By: #### CBC, ADIF F, ANEU, BMP, GFR #### [address] [address] Eosinophils/100 WBC (Bld) 0.1 0.0-6.0 % Normal 01-12 0 Pending Sale To [facility] ([place] (0000 0) Comment: Performed By: #### CBC, ADIF F, ANEU, BMP, GFR #### [address] [address] Lymphocytes (Bld) 1.10 0.90-4.32 10 3/mcL Normal 01-22-2020 [facility] [#/Vol] [facility] ([place]) (91828) Comment: Performed By: #### CBC, ADIF F, ANEU, BMP, GFR #### [address] [address] Lymphocytes/100 WBC (Bld) 9.3 20.0-40.0 % Low - 0-2019 Pending Sale To [facility] ([place]) (0000 0) Comment: Performed By: #### CBC, ADIF F, ANEU, BMP, GFR #### [address] [address] Monocytes/100 WBC (Bld) 2.2 2.0-13.0 % Normal 2019 Pending Sale To [facility] ([place]) (0000 0) Comment: Performed By: #### CBC, ADIF F, ANEU, BMP, GFR #### [address] [address] Neutrophils/100 WBC (Bld) 88.1 50.0-75.0 % High 01-12 Pending Sale To [facility] ([place]) (0000 0) Comment: Performed By: #### CBC, ADIF F, ANEU, BMP, GFR #### [address] [address] urinalysis with microscopy on 2020-01-21 Amorphous NONE Normal 01-21-2020 [facility] (88575) Comment: Performed By: #### [id number] ## ## [facility],[address] [place] [address] Bacteria LM.HPF (Urine sed) 3+ Normal [facility] [#/Area] [facility] ( 09634) Comment: Performed By: #### [id number] ## ## [facility],[address] [place] [address] Bilirubin [Mass/Vol] NEG NORMAL: NEGATIVE mg/dL Normal [facility] ospital (14043) Comment: Performed By: #### [id number] ## ## [facility],[address] [place] [address]97 Blood 10 NORMAL: NEGATIVE Abnormal 01-21-2020 [facility] (55558) Comment: Performed By: #### [id number] ## ## [facility],[address] [place] [address] Casts LM.LPF (Urine sed) NONE Normal 01-20 [facility] [#/Area] [facility] ( 58651) Comment: Performed By: #### [id number] ## ## [facility],[address] [place] [address] Clarity (U) sl.cloudy NORMAL: CLEAR Normal 01-21-2020 [facility] ( 32888) Comment: Performed By: #### [id number] ## ## [facility],[address] [place] [address] Color (U) p.yel NORMAL: YELLOW Normal 01-21-2020 [facility] (28104) Comment: Performed By: #### [id number] ## ## [facility],[address] [place] [address] 24090 Crystals LM Nom (Urine sed) NONE Normal [facility] ( 69847) Comment: Performed By: #### [id number] ## ## [facility],[address] [place] [address]118 Epi Cells MANY Normal 01-21-2020 [facility] (25949) Comment: Performed By: #### [id number] ## ## [facility],[address] [place] [address] 70711 Glucose [Mass/Vol] NORM NORMAL: NORMAL Normal 2019 [facility] ( 05496) Comment: Performed By: #### [id number] ## ## [facility],[address] [place] [address]74 Ketone NEG NORMAL: NEGATIVE Normal 01-21-2020 [facility] (98798) Comment: Performed By: #### [id number] ## ## [facility],[address] [place] [address] Mucous NONE Normal 01-21-2020 [facility] (59890) Comment: Performed By: #### [id number] ## ## [facility],[address] [place] [address]363 Nitrite Ql (U) NEG NORMAL: NEGATIVE Normal 01-21-20 [facility] ( 03495) Comment: Performed By: #### [id number] ## ## [facility],[address] [place] [address]887 pH (Bld) 5 NORMAL: 5.0-8.0 Normal 01-21-2020 [facility] (65937) Comment: Performed By: #### [id number] ## ## [facility],[address] [place] [address] 25869 Protein (U) NEG NORMAL: NEGATIVE mg/dL Normal 01-21-2020 [facility] [Mass/Vol] [facility] (85685) Comment: Performed By: #### [id number] ## ## [facility],[address] [place] [address] Rbc 0-5 0-3 / hpf Normal 01-21-2020 [facility] (70903) Comment: Performed By: #### [id number] ## ## [facility],[address] [place] [address] 94808 Sp Mer[place]old 1.020 NORMAL: 1.010-1.030 Normal 0 [facility] ( 17666) Comment: Performed By: #### [id number] ## ## [facility],[address] [place] [address]106 Specimen type Nom (Spec) UNSPECIFIED Normal [facility] ( 28370) Comment: Performed By: #### [id number] ## ## [facility],[address] [place] [address] URINALYSIS WITH MICROSCOPY Normal [facility] (61691) Comment: Result Comment: URINALYSIS Performed By: #### [id number] ## ## [facility],[address] [place] [address] 42581 Urobilinog NORM NORMAL: NORMAL Normal 01-21-2020 [facility] (16001) Comment: Performed By: #### [id number] ## ## [facility],[address] [place] [address] 13514 Wbc 1-5 0-5 / hpf Normal 01-21-2020 [facility] (37109) Comment: Performed By: #### [id number] ## ## [facility],[address] [place] [address]83 WBC (Bld) [#/Vol] NEG NORMAL: NEGATIVE 10*3/uL Normal 01-20 [facility]spital (48339) Comment: Result Comment: URINE MICROS COPIC Performed By: #### [id number] ## ## [facility],[address] [place] [address]11 Yeast LM Ql (Urine sed) NONE Normal 2019 [facility] (67446) Comment: Performed By: #### [id number] ## ## [facility],[address] [place] [address]270 troponin on 2020-01 Troponin I.cardiac <0.01 0.00 - 0.05 ng/mL Normal 0 [facility] [Mass/Vol] [facility] (24543) Comment: Result Comment: Elevated tro ponin (above [...] as heterophile antibodi es). Performed By: #### [id number] ## ## [facility],[address] [place] [address] tropi on 2020-01-21 Troponin I.cardiac <0.015 0.000-0.040 ng/mL Normal 0 [facility] [Mass/Vol] [facility] [facility] ([place] (88515) Comment: Result Comment: Troponin I r eference ranges (05/22/14): 0.00-0.040 ng/mL Negative an d non-diagnostic. >0.040 ng/mL Consistent with cardiac damage, increased clinical risk and possibility of myocardial in farction. Serial measurements, a rise & fall in test results, clinical histo ry, appropriate symptoms and/or ECG changes may help assess possibility of [place]. *Other non-acute coronary sy ndrome conditions such as CHF, myoc arditis, pulmonary emboli, sepsis and cardiac surgery could result in myoc ardial damage and increased troponi n levels. Performed By: #### TROPI ### # [place] [address] serum qual on 2020-01-21 EXTERNAL QC DONE? YES Normal 01-21-2020 [facility] (40656) Comment: Performed By: #### [id number] ## ## [facility],[address] [place] [address] INTERNAL QC PASS Normal 01-21-2020 [facility] (59720) Comment: Performed By: #### [id number] ## ## [facility],[address] [place], [place] [id number] SER NEGATIVE NEGATIVE Normal 01-21-2020 [facility] (88337) Comment: Performed By: #### [id number] ## ## [facility],[address] [place] [address] 04034 d-dimer, quantitative on 2020-01-21 D-DIMER QUANT 256 0 - 230 ng/ml High 01-21-2020 [facility] (68606) Comment: Performed By: #### [id number] ## ## [facility],[address] [place] [address] 95718 D-DIMER, QUANTITATIVE Normal 01-21-20 20 [facility] (18208) Comment: Result Comment: QUANT D-DIME R Performed By: #### [id number] ## ## [facility],[address] [place], [place] [id number] ct brain w/o contrast on 2020-01-21 CT BRAIN W/O [facility] Normal 0 [facility] [address] [place] [address] (63760) Patient: SALLY MCGREGOR Phone#: : 1980 Age: 39 Gender: F Pt. Type: ER Account: [id number] Location: 052 Ordering: DR. ANA ALCANTAR Exam Date: 01/20/202023:41 Family Phys: ISABEL ARIAS Charge Code: 404686 Physician: [place] Order #: [id number] DLP Dose#: [id number] PROCEDURE: CT BRAIN WITHOUT CONTRAST COMPARISON: [facility], CT, BRAIN W/O CON, 01/29/2017, 22:39. [...] 39 Gender: F Pt. Type: ER Account: [id number] Location: 052 Ordering: DR. ANA ALCANTAR Exam Date: 01/20/2020/23:41 Family Phys: ISABEL ARIAS Charge Code: 648332 Physician: [place] Order #: [id number] DLP Dose#: 57.50 Approved by: Kelsey Mea MD on 01/21/2020 at 18:04 cmp with egfr on 31-01-09 Age - Reported 39 years Normal 01-21-2020 [facility] (74846) Comment: Performed By: #### [id number] ## ## [facility],[address] [place] [address] 17707 Albumin [Mass/Vol] 4.3 3.4 - 4.8 g/dL Normal 01-21-2020 [facility] ( 07421) Comment: Performed By: #### [id number] ## ## [facility],[address] [place] [address] 78652 Albumin/Globulin [Mass 1.5 0.9 - 1.6 {ratio} Normal 020 [facility]] [facility] (16156) Comment: Performed By: #### [id number] ## ## [facility],[address] [place] [address] 14797 ALK PHOS 71 38 - 126 U/L Normal 01-21-2020 [facility] (92630) Comment: Performed By: #### [id number] ## ## [facility],[address] [place] [address] 85009 ALT/SGPT 11 8 - 35 U/L Normal 01-21-2020 [facility] (04276) Comment: Performed By: #### [id number] ## ## [facility],[address] [place] [address] 64611 Anion gap [Moles/Vol] 12 10 - 20 mmol/L Normal 01-21-20 [facility] ( 98756) Comment: Performed By: #### [id number] ## ## [facility],[address] [place] [address] 03688 AST/SGOT 12 13 - 39 U/L Low 01-21-2020 [facility] (51000) Comment: Performed By: #### [id number] ## ## [facility],[address] [place] [address] 37783 B/C RATIO 19 0 - 30 ratio Normal 01-21-2020 [facility] (61500) Comment: Performed By: #### [id number] ## ## [facility],1 [facility] [address] Bilirubin [Mass/Vol] 0.3 0.0 - 1.5 mg/dl Normal 0 [facility] ( 70143) Comment: Performed By: #### [id number] ## ## [facility],[address] [place] [address] 93352 Calcium [Mass/Vol] 9.2 8.6 - 10.2 mg/dl Normal 01-21-2020 [facility] ( 94843) Comment: Performed By: #### [id number] ## ## [facility],[address] [place] [address] 35799 Chloride [Moles/Vol] 102 98 - 107 mmol/L Normal 0 [facility] ( 07160) Comment: Performed By: #### [id number] ## ## [facility],[address] [place] [address] 50455 CO2 [Moles/Vol] 25.6 21.0 - 31.0 mmol/L Normal 01-21-2020 [facility] ( 65498) Comment: Performed By: #### [id number] ## ## [facility],[address] [place] [address] 97711 Creatinine [Mass/Vol] 1.1 0.6 - 1.2 mg/dl Normal 01-21-20 20 [facility] ( 69285) Comment: Performed By: #### [id number] ## ## [facility],[address] [place] [address] 30140 GFR/1.73 sq M >60 60 - 999 mL/min/{1.73_m2} Normal 0 [facility] non-blacks MDRD (000 00) (S/P/Bld) [Vol [...] OF AGE AND OLDER. Performed By: #### [id number] ## ## [facility],[address] [place] [address] 67828 GFR/1.73 sq M predicted among Normal 01-21-2020 [facility] non-blacks MDRD (S/P/Bld) [Vol Hospital (83723) rate/Area] Comment: Result Comment: COMPREHENSIV E METABOLIC PANEL Performed By: #### [id number] ## ## [facility],[address] [place] [address] 97957 GFR/1.73 sq M predicted 55 60 - 999 ML/MINUTE Low 2019 [facility] among non-blacks MDRD Hospital (76093) (S/P/Bld) [Vol rate/Area] Comment: Performed By: #### [id number] ## ## [facility],[address] [place] [address] 49700 Globulin (S) [Mass/Vol] 2.9 1.5 - 3.8 G/DL Normal 2019 [facility] ( 18038) Comment: Performed By: #### [id number] ## ## [facility],[address] [place] [address] 61594 Glucose [Mass/Vol] 100 74 - 106 mg/dl Normal 01-21-2020 [facility] ( 78804) Comment: Performed By: #### [id number] ## ## [facility],[address] [place] [address] 78246 Potassium [Moles/Vol] 3.6 3.5 - 5.1 mmol/L Normal 01-21-20 20 [facility] ( 51683) Comment: Performed By: #### [id number] ## ## [facility],[address] [place] [address] 81452 Protein [Mass/Vol] 7.2 6.4 - 8.3 g/dl Normal 01-21-2020 [facility] ( 19321) Comment: Performed By: #### [id number] ## ## [facility],[address] [place] [address] 01803 Sodium [Moles/Vol] 136 136 - 145 mmol/l Normal 01-21-2020 [facility] ( 71977) Comment: Performed By: #### [id number] ## ## [facility],[address] [place] [address] 17824 Urea nitrogen [Mass/Vol] 21 6 - 20 mg/dl High 01-20 [facility] ( 42064) Comment: Performed By: #### [id number] ## ## [facility],[address] [place] [address] 77882 chest 2 views on 31-01-09 CHEST 2 VIEWS [facility] Normal 01-21-20 [facility] ospital [address] [place] [address] (36032) Patient: SALLY MCGREGOR Phone#: : 1980 Age: 39 Gender: F Pt. Type: ER Account: [id number] Location: 052 Ordering: DR. ANA ALCANTAR Exam Date: 01/20/2020/23:45 Family Phys: ISABEL ARIAS Charge Code: [id number] Physician: [place] Order #: [id number] DLP Dose#: PROCEDURE: X-RAY CHEST 2 VIEWS COMPARISON: [facility], , CHEST 2 VIEWS, 11/25/2019, 0:08. [...] Erythrocyte distribution 13.6 11.5-15.5 % Normal 01-20 [facility] width (RBC) [Ratio] [facility] ([place]) (83844) Comment: Performed By: #### CBC, ADIF F, ANEU, BMP, GFR #### [address] [address] Hematocrit (Bld) [Volume 35.6 34.0-46.0 % Normal 01-20 Pending [facility] fraction] ([place]) (0000 0) Comment: Performed By: #### CBC, ADIF F, ANEU, BMP, GFR #### [address] [address] Hemoglobin (Bld) 11.4 12.0-16.0 G/dL Low 01-21-2020 [facility] [Mass/Vol] ([place]) (000 00) Comment: Performed By: #### CBC, ADIF F, ANEU, BMP, GFR #### [address] [address] MCH (RBC) [Entitic mass] 29.5 27.0-33.0 pg Normal 01-20 [facility] ([place]) (0000 0) Comment: Performed By: #### CBC, ADIF F, ANEU, BMP, GFR #### [address] [address] MCHC (RBC) [Mass/Vol] 32.2 32.0-36.0 G/dL Normal 01-21-20 [facility] ([place]) (0000 0) Comment: Performed By: #### CBC, ADIF F, ANEU, BMP, GFR #### [address] [address] MCV (RBC) [Entitic vol] 91.7 80.0-99.0 fL Normal 2019 [facility] ([place]) (0000 0) Comment: Performed By: #### CBC, ADIF F, ANEU, BMP, GFR #### [place] [address] Platelet mean volume 8.6 6.6-10.5 fL Normal 0 [facility] (Bld) [Entitic vol] ([place]) (99228) Comment: Performed By: #### CBC, ADIF F, ANEU, BMP, GFR #### [place] [address] Platelets (Bld) [#/Vol] 250 150-450 10 3/mcL Normal 2019 [facility] ([place]) (79554) Comment: Performed By: #### CBC, ADIF F, ANEU, BMP, GFR #### [place] [address] RBC (Bld) [#/Vol] 3.88 4.10-5.30 10 6/mcL Low 01-21-2020 [facility] ([place]) (0000 0) Comment: Performed By: #### CBC, ADIF F, ANEU, BMP, GFR #### [place] [address] WBC (Bld) [#/Vol] 6.20 4.50-10.80 10 3/mcL Normal 01-21-2020 [facility] ([place]) (05545) Comment: Performed By: #### CBC, ADIF F, ANEU, BMP, GFR #### [place] [address] cbc + diff on 01-20 Basophils (Bld) 0.10 0.00 - 0.10 x10EE3/UL Normal 01-21-2020 [facility] [#/Vol] [facility] (46419) Comment: Performed By: #### [id number] ## ## Mello Johnston [facility],[address] [place] [address] 19836 Basophils/100 WBC (Bld) 1.1 0.0 - 2.0 % Normal 2019 [facility] ( 65572) Comment: Performed By: #### [id number] ## ## [facility],[address] [place] [address] 02329 CBC + DIFF Normal 01-21-2020 [facility] (69215) Comment: Result Comment: CBC-COMPLETE BLOOD COUNT Performed By: #### [id number] ## ## [facility],[address] [place], [place] [id number] Eosinophils (Bld) 0.40 0.00 - 0.50 x10EE3/UL Normal 01-21-2020 [facility] [#/Vol] [facility] (75905) Comment: Performed By: #### [id number] ## ## [place] [id number] Eosinophils/100 WBC (Bld) 5.5 0.0 - 7.0 % Normal [facility] ( 77346) Comment: Performed By: #### [id number] ## ## [address] [address] Erythrocyte distribution 13.5 12.0 - 15.6 % Normal [facility] width (RBC) [Ratio] [facility] (65486) Comment: Performed By: #### [id number] ## ## [address] [address] Hematocrit (Bld) [Volume 33.8 34.0 - 46.0 % Low [facility] fraction] [facility] ( 74443) Comment: Performed By: #### [id number] ## ## [address] [address] Hemoglobin (Bld) 11.7 12.0 - 16.0 g/dl Low 01-21-2020 [facility] [Mass/Vol] [facility] (76685) Comment: Performed By: #### [id number] ## ## [address],[place] [address] Lymphocytes (Bld) 2.30 0.80 - 2.80 x10EE3/UL Normal 01-21-2020 [facility] [#/Vol] [facility] (22508) Comment: Performed By: #### [id number] ## ## [place] [id number] Lymphocytes/100 WBC (Bld) 30.4 20.0 - 45.0 % Normal [facility] ( 35358) Comment: Performed By: #### [id number] ## ## [address] [address] MANUAL DIFF N/A Normal 01-21-2020 [facility] (37677) Comment: Performed By: #### [id number] ## ## [address] [address] MCH (RBC) [Entitic mass] 31 27 - 33 pg Normal 01-20 [facility] ( 34422) Comment: Performed By: #### [id number] ## ## [address] [address] MCHC (RBC) [Mass/Vol] 35 32 - 36 X10 3 Normal 01-21-20 20 [facility] ( 71680) Comment: Performed By: #### [id number] ## ## [address] [address] MCV (RBC) [Entitic vol] 88 80 - 99 fl Normal 2019 [facility] ( 82868) Comment: Performed By: #### [id number] ## ## [address] [address] Monocytes (Bld) 0.50 0.20 - 1.00 x10EE3/UL Normal 01-21-2020 [facility] [#/Vol] [facility] (81775) Comment: Performed By: #### [id number] ## ## [facility],[address] [place] [address] MONOS % 6.5 0.0 - 10.0 % Normal 01-21-2020 [facility] (89151) Comment: Performed By: #### [id number] ## ## [facility],[address] [place] [address] 83786 Morphology Adrian (Bld) [Interp] N/A Normal 01-21-2020 [facility] ( 61636) Comment: Performed By: #### [id number] ## ## [facility],[address] [place] [address] 61961 Neutrophils (Bld) 4.30 1.50 - 7.10 x10EE3/UL Normal 01-21-2020 [facility] [#/Vol] [facility] (67463) Comment: Performed By: #### [id number] ## ## [facility],[address] [place] [address]163 Neutrophils/100 WBC (Bld) 56.5 46.0 - 76.0 % Normal [facility] ( 80142) Comment: Performed By: #### [id number] ## ## [facility],[address] [place] [address] 02342 Platelet mean volume 8.3 6.6 - 10.5 fl Normal 01-21-20 20 [facility] (Bld) [Entitic vol] [facility] (26620) Comment: Result Comment: AUTOMATED DI FFERENTIAL Performed By: #### [id number] ## ## [facility],[address] [place] [address] 91186 Platelets (Bld) 298 150 - 450 x10EE3/UL Normal 01-21-2020 [facility] [#/Vol] [facility] (29016) Comment: Performed By: #### [id number] ## ## [facility],[address] [place] [address] RBC (Bld) [#/Vol] 3.82 4.10 - 5.30 x 10EE6/UL Low 0 [facility] ( 94730) Comment: Performed By: #### [id number] ## ## [facility],[address] [place] [address] 81905 WBC (Bld) [#/Vol] 7.6 4.5 - 10.8 x 10EE3/UL Normal 01-21-2020 [facility] ( 57084) Comment: Performed By: #### [id number] ## ## [facility],[address] [place] [address]996 bmp on 2020-01-21 Creatinine [Mass/Vol] 0.96 0.50-1.20 mg/dL Normal 01-21-20 20 [facility] ([place]) (81864) Comment: Performed By: #### CBC, ADIF F, ANEU, BMP, GFR #### [address] [address] Urea nitrogen/Creatinine 18.8 10.0-22.0 ratio Normal 01-20 [facility] [Mass ratio] [facility] ([place]) (54252) Comment: Performed By: #### CBC, ADIF F, ANEU, BMP, GFR #### [address] [address] Calcium [Mass/Vol] 8.7 8.4-10.1 mg/dL Normal 01-21-2020 [facility] ([place]) (0000 0) Comment: Performed By: #### CBC, ADIF F, ANEU, BMP, GFR #### [address] [address] Chloride [Moles/Vol] 108 98-110 mEq/L Normal 0 [facility] ([place]) (0000 0) Comment: Performed By: #### CBC, ADIF F, ANEU, BMP, GFR #### [address] [address] CO2 [Moles/Vol] 26 22-32 mEq/L Normal 01-21-2020 [facility] ([place]) (63643) Comment: Performed By: #### CBC, ADIF F, ANEU, BMP, GFR #### [place] [address] Electrolyte Balance 4.0 4.0-15.0 mEq/L Normal 01-21-2020 [facility] ([place]) (0000 0) Comment: Performed By: #### CBC, ADIF F, ANEU, BMP, GFR #### [place] [id number] Glucose [Mass/Vol] 85 70-110 mg/dL Normal 01-21-2020 [facility] ([place]) (33722) Comment: Performed By: #### CBC, ADIF F, ANEU, BMP, GFR #### [place] [address] Potassium [Moles/Vol] 4.1 3.5-5.0 mEq/L Normal 01-21-20 [facility]) (0000 0) Comment: Performed By: #### CBC, ADIF F, ANEU, BMP, GFR #### [place] [address] Sodium [Moles/Vol] 138 136-145 mEq/L Normal 01-21-2020 [facility] ([place]) (18183) Comment: Performed By: #### CBC, ADIF F, ANEU, BMP, GFR #### [place] [address] Urea nitrogen [Mass/Vol] 18.0 8.0-22.0 mg/dL Normal 01-20 [facility] ([place]) (88828) Comment: Performed By: #### CBC, ADIF F, ANEU, BMP, GFR #### [address] [address] .neuabs on Neutrophils (Bld) 3.50 2.25-8.10 10 3/mcL Normal 01-21-2020 [facility] [#/Vol] [facility] ([place]) (56407) Comment: Performed By: #### CBC, ADIF F, ANEU, BMP, GFR #### [address] [address] .gfr on 2020-01-21 GFR Non- >60 Normal 01-20 [facility] ([place]) (90828) Comment: Result Comment: GFR Population mean for Afri can Beninese, Non- Americans Ages 20-29 = 116 mL/min/1.73 [...] ADIF F, ANEU, BMP, GFR #### [address] [address] GFR >60 Normal 0 [facility] ([place]) (15566) Comment: Result Comment: GFR Population mean for Afri can Beninese, Non- Americans Ages 20-29 = 116 mL/min/1.73 [...] ADIF F, ANEU, BMP, GFR #### [address] [address] .auto diff on 01-20 Ammonia (P) [Mass/Vol] 0.40 0.09-1.40 10 3/mcL Normal 020 [facility] ([place]) (35136) Comment: Performed By: #### CBC, ADIF F, ANEU, BMP, GFR #### [address] [address] Basophils (Bld) 0.00 0.00-0.27 10 3/mcL Normal 01-21-2020 [facility] [#/Vol] [facility] ([place]) (92560) Comment: Performed By: #### CBC, ADIF F, ANEU, BMP, GFR #### [address] [address] Basophils/100 WBC (Bld) 0.5 0.0-2.5 % Normal 2019 [facility] ([place]) (0000 0) Comment: Performed By: #### CBC, ADIF F, ANEU, BMP, GFR #### [address] [address] Eosinophils (Bld) 0.30 0.00-0.65 10 3/mcL Normal 01-21-2020 [facility] [#/Vol] [facility] ([place]) (47299) Comment: Performed By: #### CBC, ADIF F, ANEU, BMP, GFR #### [address] [address] Eosinophils/100 WBC (Bld) 5.4 0.0-6.0 % Normal [facility] ([place]) (0000 0) Comment: Performed By: #### CBC, ADIF F, ANEU, BMP, GFR #### [address] [address] Lymphocytes (Bld) 2.00 0.90-4.32 10 3/mcL Normal 01-21-2020 [facility] [#/Vol] [facility] ([place]) (12996) Comment: Performed By: #### CBC, ADIF F, ANEU, BMP, GFR #### [address] [address] Lymphocytes/100 WBC (Bld) 32.4 20.0-40.0 % Normal 05-0 [facility] ([place]) (85812) Comment: Performed By: #### CBC, ADIF F, ANEU, BMP, GFR #### [address] [address] Monocytes/100 WBC (Bld) 6.1 2.0-13.0 % Normal 2019 [facility] ([place]) (0000 0) Comment: Performed By: #### CBC, ADIF F, ANEU, BMP, GFR #### [facility] [address] [place] [address] Neutrophils/100 WBC (Bld) 55.6 50.0-75.0 % Normal 050 [facility] ([place]) (00667) Comment: Performed By: #### CBC, ADIF F, ANEU, BMP, GFR #### [facility] [address] [place] [address] cnpn on 2020-01-20 [facility] Normal 01-20-2020 [facility] SALLY MCGREGOR ([id number]) 1980 F [facility] Date Time Provider Department ([id number]) 01/20/20 MARCELINO MEJIA [facility] During your visit today, we recorded the following informati on about you: Christopher Carcamo RN 01/20/2020 11:54 AM Signed Patient asking if Chaz Stroud, would sent AB Rx to [facility], for her bad tooth? Her dentist in [place] is not open. Has an appt with a dentist in [place] on . Has a wound on tongue [...] (METRONIDAZOLE HCL) 03/11/2010 12 - [place]ness of [place] th IBUPROFEN 06/18/2016 8 - GI Upset [...] 01/20/20 progress on 2020-01 PROGRESS HNO ID: [id number] Normal 01-16-2020 [facility] Author: Isabel Mata ([id number]) Service: ? Author Type: Physician Ceiling Cleaner Type: Progress Notes Filed: 01/16/2020 1:43 PM [...] She c/o of daily. Attempted to call [facility] who had 1 visit with [...] testing. 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 In mean time will order stress [...] on 2020-01-16 MORENA Telephone (FAMPWS) Normal 01-16-2020 [facility] SALLY MCGREGOR ([id number]) 1980 [facility] Time Provider Department (80228) 01/16/20 ISABEL ARIAS) RAMA During your visit [...] and/or ibuprofen for pain. Follow-up with her [facility] care physician within the next 3 [...] Chest pain This note was generated with Cerora dictation software. It m ay contain incorrect [...] (METRONIDAZOLE HCL) 03/11/2010 12 - [place]ness of [place] th IBUPROFEN 06/18/2016 8 - GI Upset [...] Encounter Status:Closed by ISABEL WARE on [facility]/16/20 [facility] Normal 01-16-2020 [facility] SALLY MCGREGOR ([id number]) 1980 [facility] Time Provider Department (80073) 01/16/20 ISABEL ARIAS) RAMA During your visit [...] (METRONIDAZOLE HCL) 03/11/2010 12 - [place] of [place] th IBUPROFEN 06/18/2016 8 - GI Upset [...] on 2020-01-11 CNPN Telephone (FAMPWS) Normal 01-11-2020 [facility] SALLY MCGREGOR ([id number]) 1980 F [facility] Date Time Provider Department (51902) 01/11/20 MARCELINO MEJIA During your visit today, [...] (METRONIDAZOLE HCL) 03/11/2010 12 - [place]ness of [place] th IBUPROFEN 06/18/2016 8 - GI Upset PENICILLINS 12/07/2009 2 - Rash PREDNISONE 06/18/2016 14 - Other: See Comments Comments: makes agitated and mean Date Reviewed: 01/02/2020 Reviewed by: Ashley Lehman Ma - Fully Assessed Reason for Visit: Patient Question [0729] Reason For Visit History Recorded Prescriptions as [...] on 2020-01-09 CNPN Telephone (FAMPWS) Normal 01-09-2020 [facility] SALLY MCGREGOR ([id number]) 1980 [facility] Date Time Provider Department (48439) 01/09/20 ISABEL ARIAS) [facility] During your visit today, we [...] when taken with s eroquel 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 See if she is willing [...] by ISABEL WARE on 01/09/20 CNPN Telephone ([facility]) Normal 01-09-2020 [facility] SALLY MCGREGOR ([id number]) 1980 [facility] Date Time Provider Department (81403) 01/09/20 MARCELINO MEJIA During your visit today, [...] she called because she's not really thinking [facility]. Marcelino Mejia MD 01/09/2020 1:31 PM Signed [...] flexeril. Monica t says she cannot take [place] because she is on ok Seroquel and [...] dentist and she said no dentist in [facility] can see her because of her insurance . She tried [place] because they accepted her insurance but they [...] seen by ER or UC, then at [facility] they can see/check for signs of [...] she has called every dentist office in [place] and now [place] and no one takes her insurance. She said she called her insurance and they told her the only one was the one in [place]. I told her if her infection is that bad she needs to go back to ER for further evaluation. Patient then just keep saying I have no way of getting there; no family can take her; she has no money to pay to get there. Patient ended call. I did call Dr. Evans's office oral surgeon [phone] and they are open from 8-3 after day to see patient's and [facility]. They were currently closed but wanting to find out if they accept her insurance. ISABEL ARIAS PA-C 01/10/2020 7:18 AM Signed Noted. Allergies As of Date: 01/09/2020 Noted Allergy Reaction ASA (SALICYLATES) 01/27/2011 14 - Other: See Comments Comments: ulcers CONTRAST DYE (IODINE) 05/17/2008 12 - Shortness of Breath FLAGYL (METRONIDAZOLE HCL) 03/11/2010 12 - Shortness of [place] th IBUPROFEN 06/18/2016 8 - GI Upset [...] * * *Final Report* * * Normal [facility] AP/LAT DATE OF EXAM: Jan 06 2020 12:58PM [facility] ([id number]) WOX [id number] - XR THORACIC 2V AP/LAT / PROCEDURE REASON: Fall, initial encounter * * * * Physician Interpretation * * * * EXAM TITLE: XR THORACIC 2V AP/LAT DATE: 01/06/2020 COMPARISON: None. CLINICAL INDICATION/HISTORY: Back pain status post fall in [facility]. TECHNIQUE: AP and lateral views of the thoracic spine are pr esented. FINDINGS: No fractures or subluxations are noted. The disc spaces are well preserved. There is no paraspinal mass or delon destructive process. IMPRESSION: Negative thoracic spine. Smash Piecer: PSCB Transcribe Date/Time: Jan 06 2020 1:02P Dictated by : NIDA VILLALOBOS MD This examination was interpreted and the report reviewed and electronically signed by: NIDA VILLALOBOS MD on Jan 06 2020 1:07PM EST [id number] xr cervical 3v ap/lat/odon on 2020-01-06 XR CERVICAL 3V * * *Final Report* * * Normal [facility] AP/LAT/ODON DATE OF EXAM: Jan 06 2020 12:58PM [facility] WOX 5309 - XR CERVICAL 3V AP/LAT/ODON / 3 ([id number]) PROCEDURE REASON: Fall, initial encounter * * [...] tissues are normal. IMPRESSION: Negative cervical spine. Smash Piecer: PSCB Transcribe Date/Time: Jan 06 2020 1:00P Dictated by : NIDA VILLALOBOS MD This examination was interpreted and the report reviewed and electronically signed by: NIDA VILLALOBOS MD on Jan 06 2020 1:04PM EST [id number] progress on 2019-12 PROGRESS HNO ID: [id number] Normal 01-06-2020 [facility] Author: Vianey Sanchez (Tech) [facility] ([id number]) Service: ? Author Type: Ict Customer Support Officer Type: Progress Notes Filed: 01/06/2020 12:58 PM [...] 12:43 PM cnpn on 2020-01-06 [facility] Normal 01-06-2020 [facility] SALLY MCGREGOR ([id number]) 1980 [facility] Date Time Provider Department (56169) 01/06/20 MARCELINO MEJIA During your visit today, we recorded the following informati on about you: Deepa Salvador, SUBSTANCE ABUSE CLINICIAN, SUBSTANCE ABUSE CLINICIAN 01/06/2020 11:41 AM Signed Pt calls states fell a day ago and went to [facility] they gave h er 10 vicodin, 20 [...] encounter [W19.XXXA] Order(s):XR THORACIC LIMITED 2V AP/LAT [[id number]] Order #: [id number] FUTURE XR CERV INJURY 3V AP/LAT/ODON [[id number]] Order #: [id number] FUTURE Prescriptions as of 01/06/2020 Sig: SERTRALINE [...] Status:Closed by BRANDEN SANDERS MA on 01/06/20 [facility]) Normal 01-06-2020 [facility] SALLY MCGREGOR ([id number]) 1980 [facility] Date Time Provider Department (75029) 01/06/20 MARCELINO MEJIA [facility] During your visit today, we [...] (METRONIDAZOLE HCL) 03/11/2010 12 - Shortness of [place] th IBUPROFEN 06/18/2016 8 - GI Upset [...] 01/06/20 progress on 2019-12 PROGRESS HNO ID: [id number] Normal 01-05-2020 [facility] Author: Isabel Romero) Hugo Mata ([id number]) Service: ? Author Type: Physician Ceiling Cleaner Type: Progress Notes Filed: 01/05/2020 8:07 AM [...] to cancel due to no r kostas. [facility] has appointment rescheduled on january [...] minutes progress on 2019-12 PROGRESS HNO ID: [id number] Normal 01-02-2020 [facility] Author: Marie Mary) [facility] ([id number]) Service: ? Author Type: Nurse Practitioner Type: [...] Benign liver cyst 05/24/2010 CT scan at [facility] 11/2009 and 04/2010 showe 4 mm increase in size . No pain. No elevated LFTs on 03/11/2010. - Calculus of kidney 05/17/[address] Nicolas: Hospitalized age 20, and again later -- no procedures so far ([facility], [facility], 1995 [facility]) - Dysmenorrhea - Impaired fasting glucose 05/17/2008 [...] Approx. 3 cigarettes daily-1 pack every w kaw Substance Use Topics - Alcohol use: Yes [...] 2020-01-02 CNOV Office Visit ([facility]) Normal 01-02-20 [facility] SALLY Martinez ([id number]) 1980 [facility] Date Time Provider Department (99851) 01/02/20 2:45 PM MARIE SANTAMARIA (JAKI) [facility] [...] Benign liver cyst 05/24/2010 CT scan at [facility] 11/2009 and 04/2010 showe 4 mm increase in size . No pain. No elevated LFTs on 03/11/2010. - Calculus of kidney 05/17/[address] Nicolas: Hospitalized age 20, a nd again later -- no procedures so far ([facility], [facility], [facility]) - Dysmenorrhea - Impaired fasting glucose 05/17/2008 [...] Approx. 3 cigarettes daily-1 pack every w kaw Substance Use Topics - Alcohol use: Yes [...] MG CAPSULE Agrees to plan Marie Santamaria APRN.MEDICAL ADVISOR Referring Provider: SELF [[id number]] Allergies As of Date: 01/02/2020 Noted Allergy Reaction ASA (SALICYLATES) 01/27/2011 14 - Other: See Comments Comments: ulcers CONTRAST DYE (IODINE) 05/17/2008 12 - Shortness of Breath FLAGYL (METRONIDAZOLE HCL) 03/11/2010 12 - Shortness of [place] th IBUPROFEN 06/18/2016 8 - GI Upset [...] SANTAMARIA CNP on 01/02/20 cnpn on 2019-12-23 [facility]) Normal 12-23-2019 [facility] SALLY MCGREGOR ([id number]) 1980 [facility] Date Time Provider Department (11827) 12/23/19 [facility] ARIAS) [facility] During your visit today, we recorded [...] not helping cough. Please advise and call [phone]. WENDI ARIAS PA-C 12/23/2019 1:02 PM Signed [...] * *Final Report* * * Normal 12-21 [facility] FRONTAL/LAT DATE OF EXAM: Dec 22 2019 9:28AM [facility] WOX 5291 - XR CHEST 2V FRONTAL/LAT / (56558) PROCEDURE REASON: multiple diagnoses * * * [...] clips noted. IMPRESSION: No acute radiographic abnormality. Smash Piecer: PSCB Transcribe Date/Time: Dec 22 2019 9:29A Dictated by : NIDA VILLALOBOS MD This examination was interpreted and the report reviewed and electronically signed by: NIDA VILLALOBOS MD on Dec 22 2019 9:51AM EST [id number] progress on 2019-12 PROGRESS HNO ID: [id number] Normal 12-22-2019 [facility] Author: Madeline Joyner (Rt) Vianey Luo Mata ([id number]) Service: ? Author Type: Ict Customer Support Officer Type: Progress Notes Filed: 12/22/2019 9:28 AM [...] 22, 2019 9:18 AM cnpn on 2019-12-22 [facility]) Normal 12-22-2019 [facility] SALLY MCGREGOR ([id number]) 1980 [facility] Date Time Provider Department (82336) 12/22/19 ISABEL RAIAS) RAMA During your visit today, we recorded the following informati on about you: ISABEL ARIAS PA-C 12/22/2019 9:56 AM Signed Let patient know that xray is negative. Recommend cont inuing as we discussed yesterday. Isabel Arias PA-C Ashley Mcfarland [employer] 12/22/2019 10:42 AM Signed Patient notified and verbalized understanding Ashley Mcfarland [employer] Allergies As of Date: 12/22/2019 Noted Allergy Reaction ASA (SALICYLATES) 01/27/2011 14 - Other: See Comments Comments: ulcers CONTRAST DYE (IODINE) 05/17/2008 12 - Shortness of Breath FLAGYL (METRONIDAZOLE HCL) 03/11/2010 12 - Shortness of [place] th IBUPROFEN 06/18/2016 8 - GI Upset [...] 12/22/19 progress on 2019-12 PROGRESS HNO ID: [id number] Normal 12-21-2019 [facility] Author: Isabel Romero) Hugo Mata ([id number]) Service: ? Author Type: Physician Ceiling Cleaner Type: Progress Notes Filed: 12/21/2019 12:48 PM Note Text: DISTANCE HEALTH VISIT This Team Access Model visit is a phone encounter. It requir ed patient-provider interaction for the medical decision making as documented below. No video was used for evaluation of this patient. Patient consents to visit. Patient location: [place] Sally Mcgregor is a 39 year old [...] As noted in HPI PHYSICAL EXAMINATION: [facility] 08/10/2006 Deferred physical exam as visit [...] on 2019-12-15 CNPN Telephone (FAMPWS) Normal 12-15-2019 [facility] SALLY MCGREGOR ([id number]) 1980 [facility] Date Time Provider Department (54456) 12/15/19 ISABEL ARIAS (MAYA) RAMA During your [...] and still makes her nauseated. Patient uses [facility] for her pharmacy. Please advise ISABEL ARIAS [...] on 2019-12-14 CNPN Telephone (INTMWS) Normal 12-14-2019 [facility] SALLY MCGREGOR ([id number]) 1980 F [facility] Date Time Provider Department (02843) 12/14/19 ISABEL ARIAS) INTMWS During your visit today, we recorded the following informati on about you: Gale Fuentes LPN 12/14/2019 10:15 AM Signed Patient took 1 dose of Robitussin AC, di d help suppress cough but developed an itchy/rash. Asking if something else can be called in to pha acy. Patient uses [facility]. Please notify Patient. Gale ARIAS PA-C 12/14/2019 [...] on 12/14/19 CNPN Telephone (FAMPWS) Normal 12-14-2019 [facility] SALLY MCGREGOR ([id number]) 1980 [facility] Date Time Provider Department (03757) 12/14/19 ISABEL ARIAS) RAMA During your visit [...] 12/14/19 progress on 2019-11 PROGRESS HNO ID: [id number] Normal 12-13-2019 [facility] Author: Isabel Romero) Hugo Mata ([id number]) Service: ? Author Type: Physician Ceiling Cleaner Type: Progress Notes Filed: 12/13/2019 10:36 AM [...] Benign liver cyst 05/24/2010 CT scan at [facility] 11/2009 and 04/2010 showe 4 mm increase in size . No pain. No elevated LFTs on 03/11/2010. - Calculus of kidney 05/17/[address] Nicolas: Hospitalized age 20, and again later -- no procedures so far ([facility], [facility], [facility]) - Dysmenorrhea - Impaired fasting glucose 05/17/2008 [...] Approx. 3 cigarettes daily-1 pack every w kaw Substance Use Topics - Alcohol use: Yes [...] (COVID-19). emergency report on 2019-11-26 EMERGENCY REPORT [facility] Normal 11-25 [facility] ospital EMERGENCY ROOM REPORT ([id number]) NAME ACCOUNT SEX AGE ADMIT DISCHARGE PT MED. RECORD# NUMBER DATE DATE TYPE SAM, [id number] F 39 11/24/19 11/25/19 3 SALLY [id number] ROOM: ER DATE OF : 1980 DICTATING [...] for review of her constipation regimen at [facility]. She verbalized understanding of the informa tion given and agreed to plan. She was discharged in stable condition. Dictated By: Ana Alcantar MD 11/25/19 05:37 JOB #: [id number] Transcribed By: dotty 11/25/19 22:11 Electronically signed by: Jennifer Perez MD 11/25/19 22:39 Page 2 of 2 SALLY MCGREGOR Emergency Room Report urinalysis with microscopy on 2019-11-25 Amorphous NONE Normal 11-25-2019 [facility] (10414) Comment: Performed By: #### [id number] ## ## [facility],[address] [place] [address] 93587 Bacteria LM.HPF (Urine sed) 4+ Normal [facility] [#/Area] [facility] ( 62798) Comment: Performed By: #### [id number] ## ## [facility],[address] [place] [address] 21645 Bilirubin [Mass/Vol] NEG NORMAL: NEGATIVE mg/dL Normal [facility] ospital (91597) Comment: Performed By: #### [id number] ## ## [facility],[address] [place] [address] 34092 Blood 10 NORMAL: NEGATIVE Abnormal 11-25-2019 [facility] (68099) Comment: Performed By: #### [id number] ## ## [facility],[address] [place], [place] [id number] Casts LM.LPF (Urine sed) NONE Normal 11-24 [facility] [#/Area] [facility] ( 16800) Comment: Performed By: #### [id number] ## ## [facility],[address] [place] [address] 38659 Clarity (U) sl.cloudy NORMAL: CLEAR Normal 11-25-2019 [facility] ( 68486) Comment: Performed By: #### [id number] ## ## [facility],[address] [place] [address] 45253 Color (U) p.yel NORMAL: YELLOW Normal 11-25-2019 [facility] (64893) Comment: Performed By: #### [id number] ## ## [facility],[address] [place] [address] 03450 Crystals LM Nom (Urine sed) NONE Normal [facility] ( 26262) Comment: Performed By: #### [id number] ## ## [facility],[address] [place] [address] 04692 Epi Cells MANY Normal 11-25-2019 [facility] (29082) Comment: Performed By: #### [id number] ## ## [facility] [facility] [address] Glucose [Mass/Vol] NORM NORMAL: NORMAL Normal 2019 [facility] ( 99838) Comment: Performed By: #### [id number] ## ## [facility],[address] [place] [address] 76636 Ketone NEG NORMAL: NEGATIVE Normal 11-25-2019 [facility] (05593) Comment: Performed By: #### [id number] ## ## [facility],[address] [place] [address] 06628 Mucous NONE Normal 11-25-2019 [facility] (83558) Comment: Performed By: #### [id number] ## ## [facility],[address] [place] [address] 18908 Nitrite Ql (U) NEG NORMAL: NEGATIVE Normal 11-25-19 20 [facility] ( 42367) Comment: Performed By: #### [id number] ## ## [facility],[address] [place] [address] 83073 pH (Bld) 5 NORMAL: 5.0-8.0 Normal 11-25-2019 [facility] (33791) Comment: Performed By: #### [id number] ## ## [facility],[address] [place] [address] 42502 Protein (U) NEG NORMAL: NEGATIVE mg/dL Normal 11-25-2019 [facility] [Mass/Vol] [facility] (75010) Comment: Performed By: #### [id number] ## ## [facility],[address]81 [place] [address] Rbc 0-5 0-3 / hpf Normal 11-25-2019 [facility] (47669) Comment: Performed By: #### [id number] ## ## [facility],[address] [place], [place] [id number] Sp [place] 1.010 NORMAL: 1.010-1.030 Normal 0 [facility] ( 21331) Comment: Performed By: #### [id number] ## ## [facility],[address] [place] [address] Specimen type Nom (Spec) UNSPECIFIED Normal [facility] ( 07714) Comment: Performed By: #### [id number] ## ## [facility],[address] [place], [place] [address] URINALYSIS WITH MICROSCOPY Normal [facility] (67885) Comment: Result Comment: URINALYSIS Performed By: #### [id number] ## ## [facility],[address] [place] [address] Urobilinog NORM NORMAL: NORMAL Normal 11-25-2019 [facility] (76472) Comment: Performed By: #### [id number] ## ## [facility],[address] [place], [place] [id number] Wbc 1-5 0-5 / hpf Normal 11-25-2019 [facility] (91144) Comment: Performed By: #### [id number] ## ## [facility],[address] [place], [place] [id number] WBC (Bld) [#/Vol] 25 NORMAL: NEGATIVE Abnormal 11-24 [facility] ( 50340) Comment: Result Comment: URINE MICROS COPIC Performed By: #### [id number] ## ## [facility],[address] [place] [address] 37071 Yeast LM Ql (Urine sed) NONE Normal 2019 [facility] (68870) Comment: Performed By: #### [id number] ## ## [facility],[address] [place] [address] 86647 lipase on 2019-11-13 3 Lipase [Catalytic 34.0 18.0 - 51.0 U/L Normal 11-25-2019 [facility] activity/Vol] [facility] (55310) Comment: Performed By: #### [id number] ## ## [facility],[address] [facility] [address] lactate on Lactate [Moles/Vol] 0.9 0.5 - 2.0 mmol/L Normal 11-25-2019 [facility] ( 05924) Comment: Performed By: #### [id number] ## ## [facility],[address] [place] [address] abdomen/pelvis wo on 2019-11-25 CT ABDOMEN/PELVIS [facility] Normal 0 11-25-2019 [facility] ospital [address] [place], [place] [id number] (14438) Patient: SALLY MCGREGOR Phone#: : 1980 Age: 39 Gender: F Pt. Type: ER Account: [id number] Location: [facility] Ordering: DR. ANA ALCANTAR Exam Date: 11/25/2019/0:04 Family Phys: ISABEL ARIAS Charge Code: [id number] Physician: [place] Order #: [id number] DLP Dose#: PROCEDURE: CT ABDOMEN/PELVIS WITHOUT CONTRAST COMPARISON: [facility], CT, ABDOMEN/PELVIS W/O CON, 03/22/2019, 16:41. INDICATIONS: Abdominal Pain TECHNIQUE: CT images were created without intravenous contra st. All CT scans at this [facility] y use dose modulation, iterative reconstruction, and/or [...] 39 Gender: F Pt. Type: ER Account: [id number] Location: 052 Ordering: DR. ANA ACLANTAR Exam Date: 11/25/2019/0:04 Family Phys: ISABEL ARIAS Charge Code: [id number] Physician: [place] Order #: [id number] DLP Dose#: ABDOMINAL WALL: There is a [...] on 2019-11-25 CNPN Telephone (FAMPWS) Normal 11-25-2019 [facility] TOSHIASALLY TORRES ([id number]) 1980 F [facility] Date Time Provider Department (06400) 11/25/19 [facility] During your visit today, we recorded [...] Age - Reported 39 years Normal 11-25-2019 [facility] (36759) Comment: Performed By: #### [id number] ## ## [facility],[address] [place] [address] 72422 Albumin [Mass/Vol] 4.5 3.4 - 4.8 g/dL Normal 11-25-2019 [facility] ( 22340) Comment: Performed By: #### [id number] ## ## [facility],[address] [place] [address] 42644 Albumin/Globulin [Mass 1.3 0.9 - 1.6 {ratio} Normal [address] [place] [address] (84562) Comment: Performed By: #### [id number] ## ## [facility],[address] [place] [address] 12209 ALK PHOS 93 38 - 126 U/L Normal 11-25-2019 [facility] (86132) Comment: Performed By: #### [id number] ## ## [facility],[address] [place] [address] 20613 ALT/SGPT 10 8 - 35 U/L Normal 11-25-2019 [facility] (85227) Comment: Performed By: #### [id number] ## ## [facility],[address] [place] [address] 21678 Anion gap [Moles/Vol] 13 10 - 20 mmol/L Normal 11-25-19 [facility] ( 52012) Comment: Performed By: #### 666299 ## ## [facility],[address] [place] [address] 02676 AST/SGOT 9 13 - 39 U/L Low 11-25-2019 [facility] (85168) Comment: Performed By: #### [id number] ## ## [facility],1 [facility] [address] B/C RATIO 17 0 - 30 ratio Normal 11-25-2019 [facility] (03790) Comment: Performed By: #### 137182 ## ## [facility],[address]81 [facility] [address] Bilirubin [Mass/Vol] 0.4 0.0 - 1.5 mg/dl Normal 0 [facility] ( 33784) Comment: Performed By: #### 701754 ## ## [facility],[address] [place] [address] 87306 Calcium [Mass/Vol] 9.9 8.6 - 10.2 mg/dl Normal 11-25-2019 [facility] ( 59178) Comment: Performed By: #### [id number] ## ## [facility],[address] [facility] [address] Chloride [Moles/Vol] 103 98 - 107 mmol/L Normal 0 [facility] ( 17248) Comment: Performed By: #### 120026 ## ## [facility],1 [place] [address] CO2 [Moles/Vol] 24.9 21.0 - 31.0 mmol/L Normal 11-25-2019 [facility] ( 09326) Comment: Performed By: #### [id number] ## ## [facility],[address] [place] [address] 05349 Creatinine [Mass/Vol] 1.0 0.6 - 1.2 mg/dl Normal 11-25-19 20 [facility] ( 96902) Comment: Performed By: #### [id number] ## ## [facility],[address] [place] [address] 27380 GFR/1.73 sq M >60 60 - 999 mL/min/{1.73_m2} Normal 0 [facility] predicted among [facility] non-blacks MDRD (000 00) (S/P/Bld) [Vol rate/Area] Comment: Performed By: #### [id number] ## ## [facility],[address] [place] [address] 94920 Result Comment: ACCORDING TO THE NATIONAL KIDNEY DISEASE EDUCATION PROGRAM(NKDE), A NORMAL eGFR IS A VALUE GREATER THAN OR E QUAL TO 60 ML/MIN/1.73 SQ METERS. CHRONIC KIDNEY DISEASE: <60m L/MIN/1.73 SQ METERS KIDNEY FAILURE: <15mL/MIN/1. 73 SQ METERS THIS TEST SHOULD ONLY BE USE D FOR PATIENTS 18 YEARS OF AGE AND OLDER. GFR/1.73 sq M predicted among Normal 11-25-2019 [facility] non-blacks MDRD (S/P/Bld) [Vol Hospital (33413) rate/Area] Comment: Result Comment: COMPREHENSIV E METABOLIC PANEL Performed By: #### [id number] ## ## [facility],[address] [place] [address] 54106 Globulin (S) [Mass/Vol] 3.5 1.5 - 3.8 G/DL Normal 2019 [facility] ( 06117) Comment: Performed By: #### [id number] ## ## [facility],[address] [place] [address] 61255 Glucose [Mass/Vol] 123 74 - 106 mg/dl High 11-25-2019 [facility] (58959) Comment: Performed By: #### 657691 ## ## [facility],[address] [place] [address] 61451 Potassium [Moles/Vol] 3.6 3.5 - 5.1 mmol/L Normal 11-25-19 20 [facility] ( 12914) Comment: Performed By: #### 701160 ## ## [facility],[address] [place] [address] 16836 Protein [Mass/Vol] 8.0 6.4 - 8.3 g/dl Normal 11-25-2019 [facility] ( 77982) Comment: Performed By: #### 586034 ## ## [facility],[address] [place] [address] 18431 Sodium [Moles/Vol] 137 136 - 145 mmol/l Normal 11-25-2019 [facility] ( 21673) Comment: Performed By: #### [id number] ## ## [facility],[address] [place] [address] 09851 Urea nitrogen [Mass/Vol] 17 6 - 20 mg/dl Normal 11-24 [facility] ( 45052) Comment: Performed By: #### [id number] ## ## [facility],[address] [place] [address] 12281 chest 2 views on 01-12-12 CHEST 2 VIEWS [facility] Normal 11-25-19 [facility] ospital [address] [place], [place] [id number] (78034) Patient: SALLY MCGREGOR Phone#: : 1980 Age: 39 Gender: F Pt. Type: ER Account: [id number] Location: [facility] Ordering: DR. ANA ALCANTAR Exam Date: 11/25/2019/0:08 Family Phys: ISABEL ARIAS Charge Code: [id number] Physician: [place] Order #: [id number] DLP Dose#: PROCEDURE: X-RAY CHEST 2 VIEWS COMPARISON: [facility], XR, CHEST PA/LAT, 05/12/2017, 16:14. INDICATIONS: [...] on 11-24 CELL COUNT 100 Normal 11-25-2019 [facility] (41898) Comment: Performed By: #### [id number] ## ## [facility],[address] [place] [address] 13906 EO 1.0 0.0 - 4.0 % Normal 11-25-2019 [facility] (48985) Comment: Performed By: #### [id number] ## ## [facility],[address] [place] [address] 64723 SEGS 59 50 - 70 % Normal 11-25-2019 [facility] (72658) Comment: Performed By: #### [id number] ## ## [facility],[address] [place] [address] 79453 CBC + DIFF Normal 11-25-2019 [facility] (70297) Comment: Result Comment: CBC-COMPLETE BLOOD COUNT Performed By: #### [id number] ## ## [facility],[address] [place] [address] 79954 Erythrocyte distribution 13.4 12.0 - 15.6 % Normal [facility] (RBC) [Ratio] [facility] (54466) Comment: Performed By: #### [id number] ## ## [facility],[address] [place] [address] 83572 Hematocrit (Bld) [Volume 32.5 34.0 - 46.0 % Low [facility]] [facility] ( 10847) Comment: Performed By: #### 265523 ## ## [facility],[address] [place] [address] 49572 Hemoglobin (Bld) 11.4 12.0 - 16.0 g/dl Low 11-25-2019 [facility] [Mass/Vol] Hospital (87404) Comment: Performed By: #### [id number] ## ## [facility],[address] [place] [address] 17702 Lymphocytes/100 WBC (Bld) 40 20 - 40 % Normal 11-12 [facility] ( 82795) Comment: Performed By: #### 457063 ## ## [facility],[address] [place] [address] 19277 MANUAL DIFF SEE BELOW Normal 11-25-2019 [facility] (41348) Comment: Performed By: #### [id number] ## ## [facility],[address] [place] [address] 85581 MCH (RBC) [Entitic mass] 31 27 - 33 pg Normal 11-24 [facility] ( 28912) Comment: Performed By: #### 558573 ## ## [facility],[address] [place] [address] 28564 MCHC (RBC) [Mass/Vol] 35 32 - 36 X10 3 Normal 11-25-19 20 [facility] ( 35924) Comment: Performed By: #### 821056 ## ## [facility],[address] [place] [address] 16364 MCV (RBC) [Entitic vol] 88 80 - 99 fl Normal 2019 [facility] ( 91652) Comment: Performed By: #### [id number] ## ## [facility],[address] [place] [address] 05149 Morphology Adrian (Bld) REVIEWED Normal 0 [facility] [Interp] [facility] ( 11674) Comment: Performed By: #### [id number] ## ## [facility],[address] [place] [address] 97452 Platelet mean volume 9.1 6.6 - 10.5 fl Normal 11-25-19 20 [facility] (Bld) [Entitic vol] [facility] (44053) Comment: Result Comment: AUTOMATED DI FFERENTIAL Performed By: #### [id number] ## ## [facility],[address] [place] [address] 06646 Platelets (Bld) 268 150 - 450 x10EE3/UL Normal 11-25-2019 [facility] [#/Vol] [facility] (86054) Comment: Performed By: #### 114095 ## ## [facility],[address] [place] [address] 75587 RBC (Bld) [#/Vol] 3.69 4.10 - 5.30 x 10EE6/UL Low 0 [facility] ( 06461) Comment: Performed By: #### 594346 ## ## [facility],[address] [place] [address] 90180 WBC (Bld) [#/Vol] 11.4 4.5 - 10.8 x 10EE3/UL High 11-25-2019 [facility] ( 28828) Comment: Performed By: #### [id number] ## ## [facility],[address] [place] [address] tsh on 2019-11-24 TSH Qn 3.920 0.270-4.200 uU/mL Normal 11-24-2019 [facility] (07100) Comment: Result Comment: If the patie nt [...] et al. 2017 Guide lines of the [place] Thyroid Association for the Diagnosis and Management of Thyroid Disease during and the . Thyroid, 2017:27:3:315-389. Performed By: #### TSH, CBCD IF, CMP ####[facility] [address] [place], [place] [address] [phone] troponin t on 11-23 Troponin T.cardiac Test sent to 0.000-0.029 Normal 2019 [facility] [Mass/Vol] [facility] (10184) [facility]. Comment: Result Comment: Account Cred ited HIDE progress on 2019-11 PROGRESS HNO ID: [id number] Normal 11-24-2019 [facility] Author: Jay) Hugo [facility] ([id number]) Service: ? Author Type: Physician Ceiling Cleaner Type: Progress Notes Filed: 11/24/2019 9:33 AM [...] insurance and was forced to see a [facility] psychiatrist who isn't helping her. Only spoke with her twice. States she is in a lot of pain and trouble sleeping. States gabapentin used to work for her but when she lost her insurance. PAST MEDICAL HISTORY Diagnosis Date - Allergic rhinitis, cause unspecified 05/17/2008 Spring and summer - Benign liver cyst 05/24/2010 CT scan at [facility] 11/2009 and 04/2010 showe 4 mm increase in size . No pain. No elevated LFTs on 03/11/2010. - Calculus of kidney 05/17/[address] Nicolas: Hospitalized age 20, and again later -- no procedures so far ([facility], [facility], [facility]) - Dysmenorrhea - Impaired fasting glucose 05/17/2008 [...] Approx. 3 cigarettes daily-1 pack every w kaw Substance Use Topics - Alcohol use: Yes [...] dimer on D dimer Test sent to [place] <500 Normal 0 [facility]. (10383) Comment: Result Comment: Account Cred ited HIDE comp metabolic panel on 2019-11-24 Albumin [Mass/Vol] 4.4 3.9-4.9 g/dL Normal 11-24-2019 [facility] (94442) Comment: Performed By: #### TSH, CBCD IF, CMP ####[facility] [address] [place] [address] [phone] ALP [Catalytic activity/Vol] 105 34-123 U/L Normal 0 11-24-2019 [facility] (06754) Comment: Performed By: #### TSH, CBCD IF, CMP ####[facility] [address] [place] [address] [phone] ALT [Catalytic activity/Vol] 6 7-38 U/L Low 0 11-24-2019 [facility] (12799) Comment: Performed By: #### TSH, CBCD IF, CMP ####[facility] [place] [address] [phone] Anion gap [Moles/Vol] 12 9-18 mmol/L Normal 11-24-19 20 [facility] (47571) Comment: Performed By: #### TSH, CBCD IF, CMP ####[place] [address] [place] [address] [phone] AST [Catalytic activity/Vol] 14 13-35 U/L Normal 0 11-24-2019 [facility] (59081) Comment: Performed By: #### TSH, CBCD IF, CMP ####[place] [address] [phone] Bilirubin [Mass/Vol] 0.4 0.2-1.3 mg/dL Normal 0 [facility] (52240) Comment: Performed By: #### TSH, CBCD IF, CMP ####[place] [address] [place] [address] [phone] Calcium [Mass/Vol] 9.9 8.5-10.2 mg/dL Normal 11-24-2019 [facility] (66771) Comment: Performed By: #### TSH, CBCD IF, CMP ####[facility] [place] [address] [phone] Chloride [Moles/Vol] 101 97-105 mmol/L Normal 0 [facility] (01771) Comment: Performed By: #### TSH, CBCD IF, CMP ####[place] [address] [place] [address] [phone] CO2 [Moles/Vol] 23 22-30 mmol/L Normal 11-24-2019 [facility] (38722) Comment: Performed By: #### TSH, CBCD IF, CMP ####[facility] [address] [place] [address] [phone] Creatinine [Mass/Vol] 0.93 0.58-0.96 mg/dL Normal 11-24-19 [facility] (72190) Comment: Performed By: #### TSH, CBCD IF, CMP ####[facility] [address] [address] [phone] eGFR- Amer. >60 Normal 11-24-2019 [facility] (43176) Comment: Performed By: #### TSH, CBCD IF, CMP ####[facility] [place] [address] [phone] GFR/1.73 sq M predicted >60 mL/min/{1.73_m2} Normal 11-24-2019 [facility] among non-blacks [facility] (07611) (S/P/Bld) [Vol rate/Area] Comment: Result Comment: eGFR [...] Performed By: #### TSH, CBCD IF, CMP ####[facility] [address] [place] [address] [phone] Glucose [Mass/Vol] 98 74-99 mg/dL Normal 11-24-2019 [facility] (23486) Comment: Result Comment: The [place] Diabetes Association (ADA) provides guidance for cutoff [...] for diagnosis of diabetes. Reference: Standards of [facility] Care in Diabetes 2016, [place] Diabetes Association. Diabetes Care. 2016.39(Suppl 1). Performed By: #### TSH, CBCD IF, CMP ####[facility] [place] [address] [phone] Potassium [Moles/Vol] 4.1 3.7-5.1 mmol/L Normal 11-24-19 [facility] (79142) Comment: Performed By: #### TSH, CBCD IF, CMP ####[place] [address] [phone] Protein [Mass/Vol] 7.6 6.3-8.0 g/dL Normal 11-24-2019 [facility] (64728) Comment: Performed By: #### TSH, CBCD IF, CMP ####[place] [address] [place] [address] [phone] Sodium [Moles/Vol] 136 136-144 mmol/L Normal 11-24-2019 [facility] (66490) Comment: Performed By: #### TSH, CBCD IF, CMP ####[place] [address] [phone] Urea nitrogen [Mass/Vol] 21 7-21 mg/dL Normal 11-23 [facility] (75599) Comment: Performed By: #### TSH, CBCD IF, CMP ####[place] [address] [phone] cnpn on 2019-11-24 CNPN Telephone (FAMPWS) Normal 11-24-2019 [facility] SALLY MCGREGOR ([id number]) 1980 [facility] Time Provider Department (66513) 11/24/19 MARCELINO MEJIA During your visit today, [...] is onl y under doctor for the [facility] states in the letter. Valente Bruce Ma' Allergies As of Date: 11/24/2019 Noted Allergy Reaction ASA (SALICYLATES) 01/27/2011 14 - Other: See Comments Comments: ulcers CONTRAST DYE (IODINE) 05/17/2008 12 - Shortness of Breath FLAGYL (METRONIDAZOLE HCL) 03/11/2010 12 - Shortness of [place] th IBUPROFEN 06/18/2016 8 - GI Upset [...] on 11/24/19 CNPN Telephone (FAMPWS) Normal 11-24-2019 [facility] SALLY MCGREGOR ([id number]) 1980 [facility] Date Time Provider Department (84613) 11/24/19 [facility]AS[facility] During your visit today, we recorded the following informati on about you: Lorenzo Vu 11/24/2019 12:40 PM Signed 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 If so please fax to [employer] [facility] [employer] fax [phone]. ISABEL ARIAS PA-C 11/24/2019 1:00 PM Signed [...] on 11/24/19 CNPN Telephone (FAMPWS) Normal 11-24-2019 [facility] SALLY MCGREGOR ([id number]) 1980 [facility] Date Time Provider Department (06938) 11/24/19 MARCELINO MEJIA [facility] During your visit today, we recorded the following informati on about you: Yvette Huffman RN 11/24/2019 12:00 PM Signed Aidee from [facility] lab called, verified pt by name and [...] (METRONIDAZOLE HCL) 03/11/2010 12 - Shortness of [place] th IBUPROFEN 06/18/2016 8 - GI Upset [...] 2019-11-24 CNOV Office Visit (FAMPWS) Normal 11-24-19 [facility] SALLY MCGREGOR ([id number]) 1980 [facility] Date Time Provider Department (65810) 11/24/19 9:20 AM JAY ARIAS) FAMPWS During [...] Benign liver cyst 05/24/2010 CT scan at [facility] 11/2009 and 04/2010 showe 4 mm increase in size . No pain. No elevated LFTs on 03/11/2010. - Calculus of kidney 05/17/[address] Nicolas: Hospitalized age 20, a nd again later -- no procedures so far ([facility], [facility], [facility]) - Dysmenorrhea - Impaired fasting glucose 05/17/2008 [...] Approx. 3 cigarettes daily-1 pack every w kaw Substance Use Topics - Alcohol use: Yes [...] [facility] [[id number]] Order #: [id number]: 1 levoFLOXacin (LEVAQUIN) 500 mg tabletTake 1 [...] Abs Baso 0.06 <0.11 k/uL Normal 11-24-2019 [facility] (94698) Comment: Performed By: #### TSH, CBCD IF, CMP ####[place] [address] [address] [phone] Abs Berrien 0.43 <0.87 k/uL Normal 11-24-2019 [facility] (39213) Comment: Performed By: #### TSH, CBCD IF, CMP ####[place] [address] [place] [address] [phone] Abs Neut 5.59 1.45-7.50 k/uL Normal 11-24-2019 [facility] (10268) Comment: Performed By: #### TSH, CBCD IF, CMP ####[place] [address] [place] [address] [phone] Absolute nRBC <0.01 <0.01 Normal 11-24-2019 [facility] (14550) Comment: Performed By: #### TSH, CBCD IF, CMP ####[place] [address] [place] [address] [phone] Basophils/100 WBC (Bld) 0.7 % Normal 2019 [facility] (28699) Comment: Performed By: #### TSH, CBCD IF, CMP ####[place] [address] [place] [address] [phone] DTYPE Auto Diff Normal 11-24-2019 [facility] (28235) Comment: Performed By: #### TSH, CBCD IF, CMP ####[place] [address] [place] [address] [phone] Eosinophils (Bld) [#/Vol] 0.34 <0.46 k/uL Normal 11-12 [facility] (60940) Comment: Performed By: #### TSH, CBCD IF, CMP ####[place] [address] [place] [address] [phone] Eosinophils/100 WBC (Bld) 3.7 % Normal 11-12 [facility] (35478) Comment: Performed By: #### TSH, CBCD IF, CMP ####[facility] [address] Erythrocyte distribution 13.1 11.5-15.0 % Normal 11-23 [facility] width (RBC) [Ratio] [facility] (00306) Comment: Performed By: #### TSH, CBCD IF, CMP ####[facility] [address] [place] [address] [phone] Hematocrit (Bld) [Volume 38.1 36.0-46.0 % Normal 11-23 [facility] fraction] [facility] (57314) Comment: Performed By: #### TSH, CBCD IF, CMP ####[facility] [place] [address] [phone] Hemoglobin (Bld) 11.7 11.5-15.5 g/dL Normal 11-24-2019 [facility] [Mass/Vol] [facility] (17552) Comment: Performed By: #### TSH, CBCD IF, CMP ####[facility] [place] [address] [phone] Lymphocytes (Bld) [#/Vol] 2.69 1.00-4.00 k/uL Normal 11-12 [facility] (82257) Comment: Performed By: #### TSH, CBCD IF, CMP ####[facility] [address] [place] [address] [phone] Lymphocytes/100 WBC (Bld) 29.5 % Normal 11-12 [facility] (79569) Comment: Performed By: #### TSH, CBCD IF, CMP ####[facility] [address] [place] [address] [phone] MCH (RBC) [Entitic mass] 29.3 26.0-34.0 pG Normal 11-23 [facility] (50643) Comment: Performed By: #### TSH, CBCD IF, CMP ####[facility] [place] [address] [phone] MCHC (RBC) [Mass/Vol] 30.7 30.5-36.0 g/dL Normal 11-24-19 [facility] (22949) Comment: Performed By: #### TSH, CBCD IF, CMP ####[place] [address] [place] [address] [phone] MCV (RBC) [Entitic vol] 95.3 80.0-100.0 fL Normal 11-23 [facility] (36583) Comment: Performed By: #### TSH, CBCD IF, CMP ####[place] [address] [place] [address] [phone] Monocytes/100 WBC (Bld) 4.7 % Normal 2019 [facility] (83944) Comment: Performed By: #### TSH, CBCD IF, CMP ####[place] [address] [place] [address] [phone] Neutrophils/100 WBC (Bld) 61.4 % Normal 11-12 [facility] (07924) Comment: Result Comment: Differential confirmed by visual scan of peripheral blood smear slide. Performed By: #### TSH, CBCD IF, CMP ####[place] [address] [place] [address] [phone] NRBCs 0.0 0 /100 WBC Normal 11-24-2019 [facility] (36920) Comment: Performed By: #### TSH, CBCD IF, CMP ####[place] [address] [place] [address] [phone] Platelet mean volume 11.4 9.0-12.7 fL Normal 0 [facility] (Bld) [Entitic vol] [facility] (22787) Comment: Performed By: #### TSH, CBCD IF, CMP ####[facility] [place] [address] [phone] Platelets (Bld) [#/Vol] 248 150-400 k/uL Normal 2019 [facility] (40232) Comment: Performed By: #### TSH, CBCD IF, CMP ####[facility] [place] [address] [phone] RBC (Bld) [#/Vol] 4.00 3.90-5.20 m/uL Normal 11-24-2019 [facility] (20808) Comment: Performed By: #### TSH, CBCD IF, CMP ####[place] [address] [place] [address] [phone] WBC (Bld) [#/Vol] 9.11 3.70-11.00 k/uL Normal 11-24-2019 [facility] (14509) Comment: Performed By: #### TSH, CBCD IF, CMP ####[place] [address] [place] [address] [phone] cnpn on 2019-11-21 [facility] Normal 11-21-2019 [facility] SALLY MCGREGOR ([id number]) 1980 [facility] Date Time Provider Department (27153) 11/21/19 M[facility]INO [facility]JIA [facility] During your visit today, we recorded [...] Status:Closed by VALENTE BRUCE MA on 11/23/19 [facility] Telephone (FAMPWS) Normal 11-19-2019 [facility] SALLY MCGREGOR ([id number]) 1980 [facility] Date Time Provider Department (36605) 11/19/19 JC FELIX [facility] During your visit today, we recorded [...] 11/21/2019 11:15 AM Signed Pt seen in [facility] ER on 11/19/19. Janneth Zhou, RN, RN [...] (METRONIDAZOLE HCL) 03/11/2010 12 - Shortness of [place] th IBUPROFEN 06/18/2016 8 - GI Upset PENICILLINS 12/07/2009 2 - Rash PREDNISONE 06/18/2016 14 - Other: See Comments Comments: makes agitated and mean Date Reviewed: 11/18/2019 Reviewed by: Valente Bruce Ma - Fully Assessed Reason for Visit: Question [2017] Patient Update [4694] Reason For Visit History Recorded Prescriptions as [...] * *Final Report* * * Normal 11-17 [facility] FRONTAL/LAT DATE OF EXAM: Nov 18 2019 12:48PM [facility] WOX 5291 - XR CHEST 2V FRONTAL/LAT / (21768) PROCEDURE REASON: multiple diagnoses * * * [...] tissues: Unremarkable. IMPRESSION: No acute radiographic abnormality. Smash Piecer: PSCB Transcribe Date/Time: Nov 18 2019 1:01P Dictated by : KORI BLANKENSHIP MD This examination was interpreted and the report reviewed and electronically signed by: KORI BLANKENSHIP MD on Nov 18 2019 1:02PM EST [id number] progress on 2019-11 PROGRESS HNO ID: [id number] Normal 11-18-2019 [facility] Author: Kylee PickardRtVianey Lea [facility] ([id number]) Service: ? Author Type: Ict Customer Support Officer Type: Progress Notes Filed: 11/18/2019 12:49 PM [...] 18, 2019 12:40 PM PROGRESS HNO ID: [id number] Normal 11-18-2019 [facility] Author: Randi Arias [facility] ([id number]) Service: ? Author Type: Physician Ceiling Cleaner Type: Progress Notes Filed: 11/18/2019 3:32 PM [...] Benign liver cyst 05/24/2010 CT scan at [facility] 11/2009 and 04/2010 showe 4 mm increase in size . No pain. No elevated LFTs on 03/11/2010. - Calculus of kidney 05/17/[address] Nicolas: Hospitalized age 20, and again later -- no procedures so far ([facility], [facility], [facility]) - Dysmenorrhea - Impaired fasting glucose 05/17/2008 [...] removed - TOTAL ABDOM HYSTERECTOMY 08/31/06 Hysterectomy, [facility] Family History FAMILY HISTORY Problem Relation [...] Approx. 3 cigarettes daily-1 pack every w kaw Substance Use Topics - Alcohol use: Yes [...] NAME : SALLY MCGREGOR Normal 11-17-2 020 [facility] PID : [id number] Sina boyd ([id number]) : 1980 Gender : Female Race : [...] ms QTC Calculation(Bazett) : 453 ms P [place] : 51 degrees R [place] : -43 degrees T [place] : 6 degrees Test Reason : Location : 185 : [facility] Overread By : RUBEN GALVIN D.O. Edited By : RUBEN GALVIN D.O. Referred By : JAY ARIAS) Acquired by : morena MURRIETA on 2019-11-18 [facility] ([facility]) Normal 11-18-2019 [facility] SALLY MCGREGOR ([id number]) 1980 [facility] Time Provider Department (79143) 11/18/19 JAY ARIAS) [facility] During your visit today, we recorded the following informati on about you: Lorenzohanna Vu 11/18/2019 2:14 PM Addendum [facility] / [facility] calls with results of d-dimer 1.10 ( [...] cnov on 2019-11-18 CNOV Office Visit (FAMPWS) [facility] 11-18-[address] [place] [address] Debra SALLY MCGREGOR ([id number]) 1980 [facility] Time Provider Department (25636) 11/18/19 12:20 PM JAY ARIAS) [facility] During your visit today, we recorded [...] Benign liver cyst 05/24/2010 CT scan at [facility] 11/2009 and 04/2010 showe 4 mm increase in size . No pain. No elevated LFTs on 03/11/2010. - Calculus of kidney 05/17/[address] Nicolas: Hospitalized age 20, a nd again later -- no procedures so far ([facility], [facility], [facility]) - Dysmenorrhea - Impaired fasting glucose 05/17/2008 [...] removed - TOTAL ABDOM HYSTERECTOMY 08/31/06 Hysterectomy, [facility] Family History FAMILY HISTORY Problem Relation [...] Approx. 3 cigarettes daily-1 pack every w kaw Substance Use Topics - Alcohol use: Yes [...] Order(s):CONSULT TO PAIN MGT [19991220] Order #: [id number] : 1 FUTURE CBC + DIFF [SQCBCDIF] Order #: [id number] FUTURE COMP METABOLIC PANEL [SQCMP] Order #: [id number] FUTURE D-DIMER [SQDDMER] Order #: [id number] FUTURE TSH BLD [SQTSH] Order #: [id number] FUTURE CONSULT TO CARDIOLOGY [900] Order #: [id number]: 1 FUTUR E XR CHEST 2V FRONTAL/LAT [7784941] Order #: [id number] FUTURE TROPONIN T [SQTNT] Order #: [id number] FUTURE Prescriptions as of 11/18/2019 Sig: AMITRIPTYLINE [...] 11/18/19 emergency report on 2019-11-03 EMERGENCY REPORT [facility] Normal 11-03 [facility] ospital EMERGENCY ROOM REPORT (00436) NAME ACCOUNT SEX AGE ADMIT DISCHARGE PT MED. RECORD# NUMBER DATE DATE TYPE SAM [id number] F 39 10/31/19 10/31/19 3 SALLY [id number] ROOM: ER DATE OF : 1980 DICTATING [...] try contacting Dr. Kyle hernandez through the [employer]. We will dispense her 2 Percocet to go home. I did r eview her OARRS, and she will be discharged in stable condition. Page 1 of 2 SALLY MCGREGOR Emergency Room Report SALLY MCGREGOR : 1980 Dictated By: Nikhil Lord DO 10/31/19 18:03 JOB #: [id number] Transcribed By: am 11/01/19 14:42 Electronically signed by: JC Lord D.O. 11/03/19 07:04 Page 2 of 2 SALLY MCGREGOR Emergency Room Report urinalysis on 10-31 Calcium Ox 1+ NORMAL: NONE Normal 10-31-2019 [facility] (88066) Comment: Performed By: #### [id number] ## ## [facility] Hospi natty,[address] [facility],[place] [facility] [address] Amorphous TRACE Normal 10-31-2019 [facility] (76912) Comment: Performed By: #### [id number] ## ## [facility] [facility],[place] [address] Bacteria LM.HPF (Urine sed) TRACE Normal [facility] [#/Area] [facility] ( 60194) Comment: Performed By: #### [id number] ## ## [facility],[address] [facility] [address] Bilirubin [Mass/Vol] NEG NORMAL: NEGATIVE mg/dL Normal [facility] ospital (84112) Comment: Performed By: #### [id number] ## ## [facility],[address] [facility] [address] Blood 25 NORMAL: NEGATIVE Abnormal 10-31-2019 [facility] (16819) Comment: Performed By: #### [id number] ## ## [facility],[address] [facility] [address] Casts LM.LPF (Urine sed) NONE Normal 10-31 [facility] [/Area] [facility] ( 10446) Comment: Performed By: #### [id number] ## ## [facility],[address] [facility] [address] Clarity (U) clear NORMAL: CLEAR Normal 10-31-2019 [facility] (08889) Comment: Performed By: #### [id number] ## ## [facility],[address] [facility] [address] Color (U) yellow NORMAL: YELLOW Normal 10-31-2019 [facility] (25484) Comment: Performed By: #### [id number] ## ## [facility],[address] [facility] [address] Crystals LM Nom (Urine sed) SEE BELOW Normal [facility] ( 84426) Comment: Performed By: #### [id number] ## ## [facility],[address] [place] [address] Epi Cells MANY Normal 10-31-2019 [facility] (63729) Comment: Performed By: #### [id number] ## ## [facility],[address] [place] [address] 00008 Glucose [Mass/Vol] NORM NORMAL: NORMAL Normal 2019 [facility] ( 76707) Comment: Performed By: #### [id number] ## ## [facility],[address] [place] [address] 18392 Ketone NEG NORMAL: NEGATIVE Normal 10-31-2019 [facility] (46036) Comment: Performed By: #### [id number] ## ## [facility],[address] [place] [address] 08185 Microscopic SEE BELOW Normal 10-31-2019 [facility] (16224) Comment: Result Comment: MICROSCOPIC Performed By: #### [id number] ## ## [facility],[address] [place] [address] Mucous NONE Normal 10-31-2019 [facility] (38705) Comment: Performed By: #### [id number] ## ## [facility],[address] [place] [address] 13834 Nitrite Ql (U) NEG NORMAL: NEGATIVE Normal 10-31-19 20 [facility] ( 74483) Comment: Performed By: #### [id number] ## ## [facility],[address] [place] [address] 89847 pH (Bld) 5 NORMAL: 5.0-8.0 Normal 10-31-2019 [facility] (48226) Comment: Performed By: #### [id number] ## ## [facility],[address] [place] [address]677 Protein (U) NEG NORMAL: NEGATIVE mg/dL Normal 10-31-2019 [facility] [Mass/Vol] [facility] (32696) Comment: Performed By: #### [id number] ## ## [facility],[address] [place] [address]58[address] Rbc 0-5 0-3/hpf Normal 10-31-2019 [facility] (72353) Comment: Performed By: #### [id number] ## ## [facility],[address] [place], [place] [id number] Sp Mer[place]old 1.030 NORMAL: 1.010-1.030 Normal 0 [facility] ( 34283) Comment: Performed By: #### [id number] ## ## [facility],[address] [place], [place] [id number] Specimen type Nom (Spec) UNSPECIFIED Normal [facility] ( 83153) Comment: Performed By: #### [id number] ## ## [facility],[address] [place], [place] [id number] Urobilinog NORM NORMAL: NORMAL Normal 10-31-2019 [facility] (71555) Comment: Performed By: #### [id number] ## ## [facility],[address] [place] [address] 35700 Wbc 1-5 0-5/hpf Normal 10-31-2019 [facility] (85976) Comment: Performed By: #### [id number] ## ## [facility],[address] [place] [address] 19063 WBC (Bld) [#/Vol] 25 NORMAL: NEGATIVE Abnormal 10-31 [facility] ( 33006) Comment: Performed By: #### [id number] ## ## [facility],[address] [place] [address] 15879 Yeast LM Ql (Urine sed) NONE Normal 2019 [facility] (74780) Comment: Performed By: #### [id number] ## ## [facility],[address] [facility] 41648 lipase on 2019-10-15 7 Lipase [Catalytic 40.0 18.0 - 51.0 U/L Normal 10-31-2019 [facility] activity/Vol] [facility] (80496) Comment: Performed By: #### [id number] ## ## [facility] [facility] 30977 cmp with egfr on 03-11-16 Age - Reported 39 years Normal 10-31-2019 [facility] (80363) Comment: Performed By: #### [id number] ## ## [facility],[address] [place] [address] 65261 Albumin [Mass/Vol] 4.4 3.4 - 4.8 g/dL Normal 10-31-2019 [facility] ( 16185) Comment: Performed By: #### [id number] ## ## [facility],[address] [place] [address] 51590 Albumin/Globulin [Mass 1.3 0.9 - 1.6 {ratio} Normal 020 [facility]] [facility] (78041) Comment: Performed By: #### [id number] ## ## [facility],1 [facility] [address] ALK PHOS 79 38 - 126 U/L Normal 10-31-2019 [facility] (93289) Comment: Performed By: #### [id number] ## ## [facility],1 [facility] 79960 ALT/SGPT 12 8 - 35 U/L Normal 10-31-2019 [facility] (80075) Comment: Performed By: #### [id number] ## ## [facility] nat[facility],1 [facility] 37645 Anion gap [Moles/Vol] 12 10 - 20 mmol/L Normal 10-31-19 [facility] ( 48685) Comment: Performed By: #### [id number] ## ## [facility],981 [facility] 18030 AST/SGOT 13 13 - 39 U/L Normal 10-31-2019 [facility] (44427) Comment: Performed By: #### [id number] ## ## [facility] nat[facility],981 [facility] [address] B/C RATIO 18 0 - 30 ratio Normal 10-31-2019 [facility] (81742) Comment: Performed By: #### [id number] ## ## [facility],981 [facility] 07824 Bilirubin [Mass/Vol] 0.4 0.0 - 1.5 mg/dl Normal 0 [facility] ( 54537) Comment: Performed By: #### [id number] ## ## [facility] nat[facility],981 [place] [address] Calcium [Mass/Vol] 9.6 8.6 - 10.2 mg/dl Normal 10-31-2019 [facility] ( 42925) Comment: Performed By: #### [id number] ## ## [facility] nat[facility],981 [place] [address] Chloride [Moles/Vol] 103 98 - 107 mmol/L Normal 0 [facility] ( 56461) Comment: Performed By: #### [id number] ## ## [facility] nat[facility],981 [place] [address] CO2 [Moles/Vol] 25.8 21.0 - 31.0 mmol/L Normal 10-31-2019 [facility] ( 11659) Comment: Performed By: #### [id number] ## ## [facility],981 [facility] [place] [address] Creatinine [Mass/Vol] 1.0 0.6 - 1.2 mg/dl Normal 10-31-19 20 [facility] ( 89911) Comment: Performed By: #### [id number] ## ## [facility],[address] [place] [address] 53124 GFR/1.73 sq M predicted among Normal 10-31-2019 [facility] non-blacks MDRD (S/P/Bld) [Vol Hospital (77253) rate/Area] Comment: Result Comment: COMPREHENSIV E METABOLIC PANEL Performed By: #### [id number] ## ## [facility],[address] [place] [address] 02773 GFR/1.73 sq M >60 60 - 999 mL/min/{1.73_m2} Normal 0 [facility] predicted among [facility] non-blacks MDRD (000 00) (S/P/Bld) [Vol [...] OF AGE AND OLDER. Performed By: #### [id number] ## ## [facility],[address] [place] [address] 07412 Globulin (S) [Mass/Vol] 3.3 1.5 - 3.8 G/DL Normal 2019 [facility] ( 99514) Comment: Performed By: #### [id number] ## ## [facility],[address] [place] [address] 15711 Glucose [Mass/Vol] 96 74 - 106 mg/dl Normal 10-31-2019 [facility] ( 32969) Comment: Performed By: #### [id number] ## ## [facility],[address] [place] [address] 69780 Potassium [Moles/Vol] 3.9 3.5 - 5.1 mmol/L Normal 10-31-19 [facility] ( 74860) Comment: Performed By: #### [id number] ## ## [facility],[address] [place] [address] 54852 Protein [Mass/Vol] 7.7 6.4 - 8.3 g/dl Normal 10-31-2019 [facility] ( 73568) Comment: Performed By: #### [id number] ## ## [facility],[address] [place] [address] 24092 Sodium [Moles/Vol] 137 136 - 145 mmol/l Normal 10-31-2019 [facility] ( 90917) Comment: Performed By: #### [id number] ## ## [facility],[address] [place] [address] 94273 Urea nitrogen [Mass/Vol] 18 6 - 20 mg/dl Normal 10-31 [facility] ( 07471) Comment: Performed By: #### [id number] ## ## [facility],[address] [place] [address] 14914 cbc + diff on 10-31 Basophils (Bld) 0.20 0.00 - 0.10 x10EE3/UL High 10-31-2019 [facility] [#/Vol] [facility] (84148) Comment: Performed By: #### [id number] ## ## [facility],[address] [place] [address] 05807 Basophils/100 WBC (Bld) 2.0 0.0 - 2.0 % Normal 2019 [facility] ( 44382) Comment: Performed By: #### [id number] ## ## [facility],[address] [place] [address] 65621 CBC + DIFF Normal 10-31-2019 [facility] (98933) Comment: Result Comment: CBC-COMPLETE BLOOD COUNT Performed By: #### [id number] ## ## [facility],[address] [place] [address] 54251 Eosinophils (Bld) 0.40 0.00 - 0.50 x10EE3/UL Normal 10-31-2019 [facility] [#/Vol] [facility] (14089) Comment: Performed By: #### [id number] ## ## [facility],[address] [place] [address] 82387 Eosinophils/100 WBC (Bld) 4.8 0.0 - 7.0 % Normal 10-15 [facility] ( 13070) Comment: Performed By: #### [id number] ## ## [facility],[address] [place] [address] 73060 Erythrocyte distribution 13.7 12.0 - 15.6 % Normal [facility] (RBC) [Ratio] [facility] (12913) Comment: Performed By: #### [id number] ## ## [facility],[address] [place] [address] 24603 Hematocrit (Bld) [Volume 35.8 34.0 - 46.0 % Normal [facility] ( 51219) Comment: Performed By: #### [id number] ## ## [facility],[address] [place] [address] 70716 Hemoglobin (Bld) 12.3 12.0 - 16.0 g/dl Normal 10-31-2019 [facility] [Mass/Vol] [facility] (05809) Comment: Performed By: #### [id number] ## ## [facility],[address] [place] [address] 99514 Lymphocytes (Bld) 2.70 0.80 - 2.80 x10EE3/UL Normal 10-31-2019 [facility] [#/Vol] [facility] (75847) Comment: Performed By: #### [id number] ## ## [facility],[address] [place] [address] 87643 Lymphocytes/100 WBC (Bld) 30.3 20.0 - 45.0 % Normal [facility] ( 68382) Comment: Performed By: #### [id number] ## ## [facility],[address] [place] [address] 29100 MANUAL DIFF N/A Normal 10-31-2019 [facility] (67891) Comment: Performed By: #### [id number] ## ## [facility],[address] [place] [address] 68857 MCH (RBC) [Entitic mass] 30 27 - 33 pg Normal 10-31 [facility] ( 32394) Comment: Performed By: #### [id number] ## ## [facility],[address] [place] [address] 07296 MCHC (RBC) [Mass/Vol] 34 32 - 36 X10 3 Normal 10-31-19 20 [facility] ( 13086) Comment: Performed By: #### [id number] ## ## [facility],[address] [place] [address] 32364 MCV (RBC) [Entitic vol] 88 80 - 99 fl Normal 2019 [facility] ( 67206) Comment: Performed By: #### [id number] ## ## [facility],[address] [place] [address] 34693 Monocytes (Bld) 0.50 0.20 - 1.00 x10EE3/UL Normal 10-31-2019 [facility] hospital [#/Vol] [facility] (45787) Comment: Performed By: #### [id number] ## ## [facility],[address] [place] [address] 17231 MONOS % 5.4 0.0 - 10.0 % Normal 10-31-2019 [facility] (21999) Comment: Performed By: #### [id number] ## ## [facility],[address] [place] [address] 29542 Morphology Adrian (Bld) [Interp] N/A Normal 10-31-2019 [facility] ( 05461) Comment: Performed By: #### [id number] ## ## [facility],[address] [place] [address] 39590 Neutrophils (Bld) 5.10 1.50 - 7.10 x10EE3/UL Normal 10-31-2019 [facility] [#/Vol] [facility] (13088) Comment: Performed By: #### [id number] ## ## [facility],[address] [place] [address] 50995 Neutrophils/100 WBC (Bld) 57.5 46.0 - 76.0 % Normal [facility] ( 71951) Comment: Performed By: #### [id number] ## ## [facility],[address] [place] [address] 86513 Platelet mean volume 8.9 6.6 - 10.5 fl Normal 10-31-19 20 [facility] (d) [Entitic vol] [facility] (30846) Comment: Result Comment: AUTOMATED DI FFERENTIAL Performed By: #### [id number] ## ## [facility],[address] [place] [address] 14902 Platelets (Bld) 280 150 - 450 x10EE3/UL Normal 10-31-2019 [facility] [#/Vol] [facility] (25129) Comment: Performed By: #### [id number] ## ## [facility],[address] [place] [address] 68117 RBC (Bld) [#/Vol] 4.06 4.10 - 5.30 x 10EE6/UL Low 0 [facility] ( 76793) Comment: Performed By: #### [id number] ## ## [facility],[address] [place] [address] 98384 WBC (Bld) [#/Vol] 8.8 4.5 - 10.8 x 10EE3/UL Normal 10-31-2019 [facility] ( 51121) Comment: Performed By: #### [id number] ## ## [facility] 22053 hemogram on 2019-09 Erythrocyte distribution 13.6 11.5-14.5 % Normal 10-08 [facility] width (RBC) [Ratio] (26700) Comment: Performed By: #### BMP3M, MG 3, HEMOG #### [facility] [address], [place] Hematocrit (Bld) [Volume 33.3 35.0-47.0 % Low 10-08 [facility] fraction] (49508) Comment: Performed By: #### BMP3M, MG 3, HEMOG #### [facility] [address], [place] Hemoglobin (Bld) [Mass/Vol] 11.3 11.7-16.0 g/dL Low [facility] (99933) Comment: Performed By: #### BMP3M, MG 3, HEMOG #### [facility] [address], [place] MCH (RBC) [Entitic mass] 30.4 26.0-34.0 pg Normal 10-08 [facility] (12517) Comment: Performed By: #### BMP3M, MG 3, HEMOG #### [facility] [address], [place] MCHC (RBC) [Mass/Vol] 33.9 32.0-36.0 % Normal 10-08-19 [facility] (93515) Comment: Performed By: #### BMP3M, MG 3, HEMOG #### [facility] [address], [place] MCV (RBC) [Entitic vol] 89.9 79.0-98.0 fL Normal 2019 [facility] (42798) Comment: Performed By: #### BMP3M, MG 3, HEMOG #### [place] [address] [place], [place] Platelet mean volume (Bld) 9.5 7.4-10.4 fL Normal [facility] [Entitic vol] (07910 ) Comment: Performed By: #### BMP3M, MG 3, HEMOG #### [facility] [address], [place] Platelets (Bld) [#/Vol] 240 140-440 10*3/uL Normal 2019 [facility] (83965) Comment: Performed By: #### BMP3M, MG 3, HEMOG #### [facility] [address], [place] RBC (Bld) [#/Vol] 3.70 3.80-5.20 10*6/uL Low 10-08-2019 S [facility] (85238) Comment: Performed By: #### BMP3M, MG 3, HEMOG #### [place] [address] [place], [place] WBC (Bld) [#/Vol] 18.5 3.6-10.7 10*3/uL High 10-08-2019 S [facility] (51850) Comment: Performed By: #### BMP3M, MG 3, HEMOG #### [facility] [address], [place] ts gel on 2019-09-15 4 TS GEL ABO Group: Normal 10-07-2019 [facility] (48648) O Rh, Gel: POS Antibody Screen Gel: NEG Comment: Performed By: #### BMP3M, MG 3, HEMOG #### [facility] [address], [place] surgical pathology on 2019-10-07 Surgical [id number] Normal 10-07-2019 [facility] System PATHOLOGY AND (40787 ) LABORATORY MEDICINE [address] [place] [address] FINAL SURGICAL PATHOLOGY REPORT NAME: SALLY MCGREGOR : 1980 39 Y Don[place] CRISTOBAL NO.: [id number] LOCATION: I 5117 01 PROCEDURE 10/07/2019 DATE: [...] determined by the clinical labor atories of [facility]. They have not been cleared by the [facility] od and Drug Administration (FDA). The FDA [...] Results should be interpreted with caution given [facility] raised possibility of false negativity on decalcified specimens. Professional Performing Location: [address] [address]. DEPARTMENT OF PATHOLOGY AND LABORATORY MEDICINE [place], [place] [address] op note on Op Note PATIENT: SALLY MCGREGOR - [facility] ([id number]) ADMISSION DATE: 10/07/2019 SURGERY DATE: 10/07/2019 DATE [...] mass from a prior exam done in [facility] office. She underwent abdominal prep and [...] with a minimal EBL. Diskriter Job ID: [id number] Delon Palacios MD DOD:10/07/2019 10:46 A /semaj DOT:10/07/2019 12:51 P Job Number: [id number] Document Number: [id number] cc: Delon Palacios MD [employer] [facility] [address] Lui Harris MD [address] [place] [address], [address] [facility] [address] follicle stim hormone on 2019-09-15 Follicle Stim Hormone 6.5 m[IU]/mL Normal 09-15-19 [facility] (59803) Comment: Result Comment: Females: Follicular Phase ...... 2.3- 12.6 Mid-cycle Peak ........ 5.2- 17.5 Luteal Phase .......... 1.7- 12.9 Post-menopausal ....... 12.7 -132.2 Males: 0.7-10.8 Performed By: #### FSH3 #### [facility] [address] [place] [address] us pelvis ta/tv on 2019-09-11 US Pelvis TA/TV Patient Name: SALLY MCGREGOR 09-11-2019 [facility] ([id number] ) Ultrasound Exam Date/Time 09/11/2019 14:17:16 EST Exam US Pelvis TA/TV Ordering Physician MARLA ARNDT REBECCA E. Accession Number [id number] CPT4 Codes 01560 (US Pelvis TA/TV), 37081 (US Transvaginal) Reason For Exam right ovarian mass seen on CT, s/p hysterectomy Report EXAMINATION: Transabdominal and transvaginal pelvic ultrasound. COMPARISON: CT scan of 09/11/2019 from [facility]. REASON FOR STUDY: Right ovarian mass; prior [...] Baso Cnt 0.0 0.0-0.2 10*3/uL Normal 09-05-2019 [facility] (41550) Comment: Performed By: #### HEMDF, BM P3 #### [facility] [address] [place] [address] Abs Neutrophile Cnt 3.9 1.8-7.0 10*3/uL Normal 09-05-2019 [facility] (74495) Comment: Performed By: #### HEMDF, BM P3 #### [facility] [address] [place] [address] Basophils/100 WBC (Bld) 0.3 0.0-2.0 % Normal 2018 [facility] (10149) Comment: Performed By: #### HEMDF, BM P3 #### [place] [address] [place] [address] Eosinophils (Bld) [#/Vol] 0.2 0.0-0.5 10*3/uL Normal 08-15 [facility] (54299) Comment: Performed By: #### HEMDF, BM P3 #### [facility] [place] [address] Eosinophils/100 WBC (Bld) 3.3 1.0-6.0 % Normal 08-15 [facility] (50582) Comment: Performed By: #### HEMDF, BM P3 #### [place] [address] [place] [address] Erythrocyte distribution 12.9 11.5-14.5 % Normal 09-05 [facility] width (RBC) [Ratio] (58359) Comment: Performed By: #### HEMDF, BM P3 #### [place] [address] [place] [address] Granulocytes/100 WBC (Bld) 55.5 40.0-80.0 % Normal [facility] (26901) Comment: Performed By: #### HEMDF, BM P3 #### [place] [address] [place] [address] Hematocrit (Bld) [Volume 34.8 35.0-47.0 % Low 09-05 [facility] fraction] (68855) Comment: Performed By: #### HEMDF, BM P3 #### [facility] [address] [place] [address] Hemoglobin (Bld) [Mass/Vol] 11.5 11.7-16.0 g/dL Low [facility] (91201) Comment: Performed By: #### HEMDF, BM P3 #### [place] [address] [place], [place] Lymphocytes (Bld) [#/Vol] 2.5 1.0-4.3 10*3/uL Normal 08-15 [facility] (91001) Comment: Performed By: #### HEMDF, BM P3 #### [place] [address] [place], [place] Lymphocytes/100 WBC (Bld) 35.4 20.0-40.0 % Normal 08-15 [facility] (71249) Comment: Performed By: #### HEMDF, BM P3 #### [place] [address] [place], [place] MCH (RBC) [Entitic mass] 29.9 26.0-34.0 pg Normal 09-05 [facility] (83414) Comment: Performed By: #### HEMDF, BM P3 #### [place] [address] [place], [place] MCHC (RBC) [Mass/Vol] 33.0 32.0-36.0 % Normal 09-05-20 19 [facility] (28418) Comment: Performed By: #### HEMDF, BM P3 #### [place] [address] [place], [place] MCV (RBC) [Entitic vol] 90.7 79.0-98.0 fL Normal 2018 [facility] (81868) Comment: Performed By: #### HEMDF, BM P3 #### [place] [address] [place], [place] Monocytes (Bld) [#/Vol] 0.4 0.0-0.8 10*3/uL Normal 2018 [facility] (28912) Comment: Performed By: #### HEMDF, BM P3 #### [facility] [address] [place] [address] Monocytes/100 WBC (Bld) 5.5 2.0-10.0 % Normal 2018 [facility] (95254) Comment: Performed By: #### HEMDF, BM P3 #### [facility] [place] [address] [address], [place] Platelet mean volume (Bld) 9.8 7.4-10.4 fL Normal [facility] [Entitic vol] (63950 ) Comment: Performed By: #### HEMDF, BM P3 #### [place] [address] [place], [place] Platelets (Bld) [#/Vol] 204 140-440 10*3/uL Normal 2018 [facility] (91638) Comment: Performed By: #### HEMDF, BM P3 #### [place] [address] [place], [place] RBC (Bld) [#/Vol] 3.83 3.80-5.20 10*6/uL Normal 09-05-2019 S [facility] (95320) Comment: Performed By: #### HEMDF, BM P3 #### [place] [address] [place], [place] WBC (Bld) [#/Vol] 7.0 3.6-10.7 10*3/uL Normal 09-05-2019 S [facility] (00842) Comment: Performed By: #### HEMDF, BM P3 #### [place] [address] [place], [place] cr urography retrograde w/ + w/o kub on 2019-09-05 CR Urography Patient Name: SALLY MCGREGOR Normal 09-05-2019 [facility] Retrograde w/ + w/o System (71200) KUB Diagnostic Radiology Exam Date/Time 09/05/2019 08:12:21 EST Exam CR Urography Retrograde w/ + w/o KUB Ordering Physician MAUREEN STONE Accession Number [id number] CPT4 Codes 92809 () Reason For Exam Renal stone fluro c arm c and p Report A total of 1 minute and 11 seconds of fluoro time was used in the Operating Suite for this procedure. No other report will be generated. Final Signed Date and Time: 09/26/2019 2:02 pm Signed by: DIE BARBER, SYSTEM Transcribed Date and Time: 09/26/2019 1:19 Transcribed By:KRISTAN basic metabolic panel on 2019-09-05 Calcium [Mass/Vol] 8.7 8.4-10.4 mg/dL Normal 09-05-2019 [facility] (22862) Comment: Performed By: #### HEMDF, BM P3 #### [facility] [address] [place] [address] Anion gap [Moles/Vol] 7 Normal 09-05-20 [facility] (23566) Comment: Performed By: #### HEMDF, BM P3 #### [facility] [address] [place] [address] CO2 [Moles/Vol] 24 22-30 mmol/L Normal 09-05-2019 [facility] (84070) Comment: Performed By: #### HEMDF, BM P3 #### [facility] [address] [place] [address] Creatinine [Mass/Vol] 0.79 0.52-1.25 mg/dL Normal 09-05-20 [facility] (00101) Comment: Performed By: #### HEMDF, BM P3 #### [facility] [address] [place] [address] GFR/1.73 sq M > 60.0 >60 mL/min/{1.73_m2} Normal 9 [facility] predicted among Syst em (79764) blacks MDRD (S/P/Bld) [Vol rate/Area] Comment: Performed By: #### HEMDF, BM P3 #### [facility] [address] [place] [address] GFR/1.73 sq M > 60.0 >60 mL/min/{1.73_m2} Normal 9 [facility] predicted among Syst em (41606) non-blacks MDRD (S/P/Bld) [Vol rate/Area] Comment: Result Comment: Source- MDRD equation with creatinine calibration to IDMS(NKDEP) eGFR not recommended for dylon g dose adjustment Performed By: #### HEMDF, BM P3 #### [place] [address], [place] Glucose [Mass/Vol] 85 70-100 mg/dL Normal 09-05-2019 [facility] (58170) Comment: Performed By: #### HEMDF, BM P3 #### [place] [address], [place] Urea nitrogen [Mass/Vol] 5 7-20 mg/dL Low 09-05 [facility] (20571) Comment: Performed By: #### HEMDF, BM P3 #### [place] [address] [place], [place] Chloride [Moles/Vol] 108 98-107 mmol/L High 9 [facility] (88195) Comment: Performed By: #### HEMDF, BM P3 #### [employer] [facility] [place] [address] [address], [place] Potassium [Moles/Vol] 4.0 3.5-5.1 mmol/L Normal 09-05-20 19 [facility] (72467) Comment: Performed By: #### HEMDF, BM P3 #### [place] [address] [address] [place], [place] Sodium [Moles/Vol] 140 135-145 mmol/L Normal 09-05-2019 [facility] (64615) Comment: Performed By: #### HEMDF, BM P3 #### [place] [address], [place] magnesium on 2018-09-22 Magnesium [Mass/Vol] 1.9 1.6-2.3 mg/dL Normal 9 [facility] (85573) Comment: Performed By: #### BMP3M, MG 3, HEMOG #### [facility] [address], [place] hemogram on 2019-08 Erythrocyte distribution 13.2 11.5-14.5 % Normal 09-04 [facility] width (RBC) [Ratio] (98343) Comment: Performed By: #### BMP3M, MG 3, HEMOG #### [facility] [address], [place] Hematocrit (Bld) [Volume 36.7 35.0-47.0 % Normal 09-04 [facility] fraction] (67048) Comment: Performed By: #### BMP3M, MG 3, HEMOG #### [facility] [address], [place] Hemoglobin (Bld) 12.3 11.7-16.0 g/dL Normal 09-04-2019 [facility] [Mass/Vol] (82765) Comment: Performed By: #### BMP3M, MG 3, HEMOG #### [facility] [address], [place] MCH (RBC) [Entitic mass] 30.6 26.0-34.0 pg Normal 09-04 [facility] (35446) Comment: Performed By: #### BMP3M, MG 3, HEMOG #### [place] [address] [place], [place] MCHC (RBC) [Mass/Vol] 33.5 32.0-36.0 % Normal 09-04-20 19 [facility] (50414) Comment: Performed By: #### BMP3M, MG 3, HEMOG #### [facility] [address], [place] MCV (RBC) [Entitic vol] 91.3 79.0-98.0 fL Normal 2018 [facility] (89708) Comment: Performed By: #### BMP3M, MG 3, HEMOG #### [facility] [address], [place] Platelet mean volume (Bld) 10.4 7.4-10.4 fL Normal [facility] [Entitic vol] (88371 ) Comment: Performed By: #### BMP3M, MG 3, HEMOG #### [facility] [address], [place] Platelets (Bld) [#/Vol] 211 140-440 10*3/uL Normal 2018 [facility] (98712) Comment: Performed By: #### BMP3M, MG 3, HEMOG #### [facility] [address], [place] RBC (Bld) [#/Vol] 4.02 3.80-5.20 10*6/uL Normal 09-04-2019 [facility] (32788) Comment: Performed By: #### BMP3M, MG 3, HEMOG #### [place] [address] [place], [place] WBC (Bld) [#/Vol] 7.1 3.6-10.7 10*3/uL Normal 09-04-2019 [facility] (95833) Comment: Performed By: #### BMP3M, MG 3, HEMOG #### [place] [address], [place] culture urine on 01-09-22 CULTURE URINE CULTURE URINE --> Status: F Normal 09-04-2019 [facility] No growth (<1,000 CFU/ml). (33100) Comment: Order Comment: Specimen Sour ce Comment:Urine, clean catch Performed By: #### C/UR #### [place] [address], [place] basic metabolic panel on 2019-09-04 Potassium [Moles/Vol] 3.5 3.5-5.1 mmol/L Normal 09-04-20 [facility] (55147) Comment: Performed By: #### BMP3M, MG 3, HEMOG #### [facility] [address], [place] Anion gap [Moles/Vol] 9 Normal 09-04-20 [facility] (14510) Comment: Performed By: #### BMP3M, MG 3, HEMOG #### [facility] [address], [place] Calcium [Mass/Vol] 8.8 8.4-10.4 mg/dL Normal 09-04-2019 [facility] (46225) Comment: Performed By: #### BMP3M, MG 3, HEMOG #### [place] [address], [place] CO2 [Moles/Vol] 26 22-30 mmol/L Normal 09-04-2019 [facility] (34903) Comment: Performed By: #### BMP3M, MG 3, HEMOG #### [place] [address], [place] Glucose [Mass/Vol] 76 70-100 mg/dL Normal 09-04-2019 [facility] (97003) Comment: Performed By: #### BMP3M, MG 3, HEMOG #### [place] [address], [place] Urea nitrogen [Mass/Vol] 10 7-20 mg/dL Normal 09-04 [facility] (69891) Comment: Performed By: #### BMP3M, MG 3, HEMOG #### [place] [address], [place] Creatinine [Mass/Vol] 0.81 0.52-1.25 mg/dL Normal 09-04-20 19 [facility] (93214) Comment: Performed By: #### BMP3M, MG 3, HEMOG #### [place] [address], [place] GFR/1.73 sq M > 60.0 >60 mL/min/{1.73_m2} Normal 9 [facility] predicted among Syst em (15990) blacks MDRD (S/P/Bld) [Vol rate/Area] Comment: Performed By: #### BMP3M, MG 3, HEMOG #### [place] [address], [place] GFR/1.73 sq M > 60.0 >60 mL/min/{1.73_m2} Normal 9 [facility] predicted among Syst em (78923) non-blacks MDRD (S/P/Bld) [Vol rate/Area] Comment: Result Comment: Source- MDRD equation with creatinine calibration to IDMS(NKDEP) eGFR not recommended for dylon g dose adjustment Performed By: #### BMP3M, MG 3, HEMOG #### [facility] [address], [place] Sodium [Moles/Vol] 138 135-145 mmol/L Normal 09-04-2019 [facility] (90134) Comment: Performed By: #### BMP3M, MG 3, HEMOG #### [facility] [address], [place] Chloride [Moles/Vol] 103 98-107 mmol/L Normal 9 [facility] (48180) Comment: Performed By: #### BMP3M, MG 3, HEMOG #### [facility] [address], [place] cr abdomen ap on 01-09-21 CR Abdomen AP Patient Name: SALLY MCGREGOR 09-03-2019 [facility] ([id number] ) Diagnostic Radiology Exam Date/Time 09/03/2019 17:35:36 EST Exam CR Abdomen AP Ordering Physician MD RACH,CONCHIS J Accession Number [id number] CPT4 Codes 81254 () Reason For Exam nephrolithiasis Report ABDOMEN, [...] on 2019-08-03 [facility]CO Letter Text Normal 08-03-2019 [facility] (85077) xr sacrum/coccyx 3v ap/lat on 2019-07-21 XR SACRUM/COCCYX 3V * * *Final Report* * * Normal 07-21-2019 [facility] AP/LAT DATE OF EXAM: Jul 21 2019 11:38AM [facility] WOX 5246 - XR SACRUM/COCCYX 3V AP/LAT / 4 [facility] PROCEDURE REASON: multiple diagnoses (63420) * * * * Physician Interpretation * [...] BONY ABNORMALITY IN THE PELVIS SEGMENT COCCYX. Smash Piecer: PSCB Transcribe Date/Time: Jul 21 2019 4:01P Dictated by : ESTEE CUMMINGS MD This examination was interpreted and the report reviewed and electronically signed by: ESTEE CUMMINGS MD on Jul 21 2019 4:06PM EST [id number] xr lumbar 3v ap/lat/l5-s1 on 2019-07-21 XR LUMBAR 3V * * *Final Report* * * Normal [facility] AP/LAT/L5-S1 DATE OF EXAM: Jul 21 2019 11:38AM [facility] WOX 5228 - XR LUMBAR 3V AP/LAT/L5-S1 / [facility] PROCEDURE REASON: multiple diagnoses (41316) * * * * Physician Interpretation * [...] BONY ABNORMALITY IN THE PELVIS SEGMENT COCCYX. [facility] Transcribe Date/Time: Jul 21 2019 4:01P Dictated by : ESTEE CUMMINGS MD This examination was interpreted and the report reviewed and electronically signed by: ESTEE CUMMINGS MD on Jul 21 2019 4:06PM EST [id number] tsh on 2019-07-21 TSH Qn 1.510 0.270-4.200 uU/mL Normal 07-21-2019 [facility] (99287) Comment: Result Comment: If the patie nt [...] et al. 2017 Guide lines of the [place] Thyroid Association for the Diagnosis and Management of Thyroid Disease during and the . Thyroid, 2017:27:3:315-389. Performed By: #### HBA1C, TS Julieth, MORIAH #### [facility] [address] [place] [id number] progress on 2019-07 PROGRESS HNO ID: [id number] Normal 07-21-2019 [facility] Author: Elena Stauffer [facility] ([id number]) Service: ? Author Type: ? Type: Progress [...] 21, 2019 11:23 AM PROGRESS HNO ID: [id number] Normal 07-21-2019 [facility] Author: Randi Arias [facility] ([id number]) Service: ? Author Type: Physician Ceiling Cleaner Type: Progress Notes Filed: 07/21/2019 11:26 AM [...] Benign liver cyst 05/24/2010 CT scan at [facility] 11/2009 and 04/2010 showe 4 mm increase in size . No pain. No elevated LFTs on 03/11/2010. - Calculus of kidney 05/17/[address] Nicolas: Hospitalized age 20, and again later -- no procedures so far ([facility], [facility], [facility]) - Dysmenorrhea - Impaired fasting glucose 05/17/2008 [...] removed - TOTAL ABDOM HYSTERECTOMY 08/31/06 Hysterectomy, [facility] Family History FAMILY HISTORY Problem Relation [...] activity: Yes Partners: Male control/protection: Surgical Comment: [facility] Lifestyle Physical activity: Days per week: Not on file Minutes per session: Not on file Stress: Not on file Relationships Social connections: Talks on phone: Not on file Gets together: Not on file Attends synagogue service: Not on file Active member of [...] Cholesterol [Mass/Vol] 206 <200 mg/dL High 019 [facility] (55205) Comment: Result Comment: <200 mg/dL, Desirable 200-239 mg/dL, Borderline hi gh >239 mg/dL, High Performed By: #### HBA1C, TS H, LIPNF #### [facility] [address] [place], [place] [address] Cholesterol in 2.39 <2.54 mg/dL Normal 07-21-[address] [facility] LDL/Cholesterol in HDL [Mass [facility] (20457) ratio] Comment: Result Comment: Reference: 1. National Cholesterol Educ ation Program ATP III Guideline At-A-Glance Quick Desk Reference: National Heart, Lung, and Blood [place]. National Institutes of Health. 2001: NIH Publication No. 01-3305. 2. An International Atherosc lerosis Society position paper: global recommendations for the management of dyslipidemia: executive summary, Atherosclerosis. 2014: 232(2):410-413. Performed By: #### HBA1C, TS H, LIPNF #### [facility] [address] [place], [place] [address] Cholesterol.total/Cholesterol in 4.04 <5.10 mg/dL Normal 07-21-2019 [facility] HDL [Mass ratio] Cli nghia [facility] (82497) Comment: Performed By: #### HBA1C, TS H, LIPNF #### [facility] [address] [place], [place] [address] HDL Cholesterol, NF 51 >39 mg/dL Normal 07-21-2019 [facility] (67361) Comment: Result Comment: 40-59 mg/dL, Acceptable >59 mg/dL, High: Negative ri sk factor for coronary heart disease <40 mg/dL, Low: Positive ris k factor for coronary heart disease Performed By: #### HBA1C, TS H, LIPNF #### [facility] [address] [place], [place] [address] LDL Cholesterol, NF 122 <100 mg/dL High 07-21-2019 [facility] (13148) Comment: Result Comment: <100 mg/dL, Optimal 100-129 mg/dL, Near optimal/ above optimal 130-159 mg/dL, Borderline hi gh 160-189 mg/dL, High >189 mg/dL, Very high Secondary prevention optimal LDL Cholesterol levels are recommended to be < 70 mg/dL Performed By: #### HBA1C, TS H, LIPNF #### [facility] [address] [place] [address] Non HDL Chol, NF 155 <130 mg/dL High 07-21-2019 [facility] (94954) Comment: Result Comment: <130 mg/dL, Optimal 130-159 mg/dL, Near optimal/ above optimal 160-189 mg/dL, Borderline hi gh 190-219 mg/dL, High >219 mg/dL, Very high Secondary prevention optimal non HDL Cholesterol levels are recommended to be < 100 mg/dL Performed By: #### HBA1C, TS H, LIPNF #### [facility] [address] [place] [address] Triglycerides, NF 163 <150 mg/dL High 07-21-2019 C [facility] (12737) Comment: Result Comment: <150 mg/dL, Normal 150-199 mg/dL, Borderline hi gh 200-499 mg/dL, High >499 mg/dL, Very high Performed By: #### HBA1C, TS H, LIPNF #### [facility] [address] [place] [address] VLDL Cholesterol, NF 33 <30 mg/dL High 9 [facility] (88675) Comment: Performed By: #### HBA1C, TS H, LIPNF #### [facility] [address] [place] [address] hemoglobin a1c on HbA1c (Bld) [Mass fraction] 5.3 4.3-5.6 % Normal [facility] (74357) Comment: Result Comment: [place] Marya betes Association guidelines indicate that patients with HgbA1c in the range 5.7-6.4% are at increased risk for development of diabetes, and intervention by lifestyle modification may be beneficial. HgbA1c greater o r equal to 6.5% is considered diagnostic of diabetes. Performed By: #### HBA1C, TS H, LIPNF #### [facility] [address] [place] [address] HbA1c (Bld) [Mass fraction] 105 mg/dL Normal [facility] (71815) Comment: Result Comment: eAG: (Jaimiea arnie average glucose) is a calculated value from HgbA1c and is volunteer patient representative of the average blood glucose level in the last 2-3 month period. Performed By: #### HBA1C, TS H, LIPNF #### [facility] [address] [place], [place] [address] cnov on 2019-07-21 CNOV Office Visit (FAMPWS) Normal 07-21-20 [facility] SALLY MCGREGOR ([id number]) 1980 [facility] Date Time Provider Department ([id number]) 07/21/19 10:40 AM JAY ARIAS) FAMPWS During [...] Benign liver cyst 05/24/2010 CT scan at [facility] 11/2009 and 04/2010 showe 4 mm increase in size . No pain. No elevated LFTs on 03/11/2010. - Calculus of kidney 05/17/[address] Nicolas: Hospitalized age 20, a nd again later -- no procedures so far ([facility], [facility], [facility]) - Dysmenorrhea - Impaired fasting glucose 05/17/2008 [...] removed - TOTAL ABDOM HYSTERECTOMY 08/31/06 Hysterectomy, [facility] Family History FAMILY HISTORY Problem Relation [...] activity: Yes Partners: Male control/protection: Surgical Comment: [facility] Lifestyle Physical activity: Days per week: Not on file Minutes per session: Not on file Stress: Not on file Relationships Social connections: Talks on phone: Not on file Gets together: Not on file Attends synagogue service: Not on file Active member of [...] Z13.6] Order(s):CONSULT TO NEUROLOGY [9019] Order #: [id number]: 1 FUTURE amitriptyline (ELAVIL) 50 mg tabletTake 1 tablet by mouth da federico at bedtime.Disp: 30 tabletRfl: 5 XR LUMBAR GENERAL 3V AP/LAT/L5-S1 [[id number]] Order #: [id number] FUTURE XR SACRUM/COCCYX 3V AP/LAT [[id number]] Order #: [id number] FUT URE TSH BLD [SQTSH] Order #: [id number] FUTURE HGB A1C [XPFUH4F] Order #: [id number] FUTURE LIPID PANEL, NONFASTING [SQLIPNF] Order #: [id number] FUTURE cyclobenzaprine (FLEXERIL) 10 mg tabletTake 1 [...] - 3. Body Temperature 97.81 [degF] 05-17-2020 [facility] (28598) Body Temperature 97.9 [degF] 05-08-2020 [facility] (91564) Body weight 89.9 kg 05-17-2020 [facility] (83858) Body weight 93.89 kg 05-08-2020 [facility] (27788) BP Diastolic 82 mm[Hg] 05-17-2020 [facility] (57672) BP Diastolic 76 mm[Hg] 05-08-2020 [facility] (96065) BP Systolic 124 mm[Hg] 05-17-2020 [facility] (97464) BP Systolic 121 mm[Hg] 05-08-2020 [facility] (19619) Height 154.9 cm 05-08-2020 [facility] (65664) Pulse (Heart Rate) 86 /min [facility]69096[facility] Pulse (Heart Rate) 91 /min 05-08-2020 [facility] (88598) Pulse Oximetry 97 % 05-08-2020 [facility] (06559) Respiratory Rate 16 /min 05-17-2020 [facility]40383[facility] Respiratory Rate 18 /min 05-08-2020 [facility] (15452[facility] Encounters Date Type Reason Provider Location 06-25-2020 - Chart abstracting Postoperative pain Noaman Tanesha [facility] 06-25-2020 [facility] Comment: Refill Request 05-23-2020 - E-mail encounter Isabel Romero) [facility] 05-23-2020 from carer Hugo 03-24-2020 - Emergency Migraine, CORBY Johnston 03-24-2020 department unspecified, not [facility] patient visit intractableCORBY (44453) without status [facility] migrainosus CORBY M OLVIN ARIAS UNKNOWN PROVIDER 01-21-2020 - Emergency ANA Johnston 01-21-2020 [facility] ANA ALVARADO ([id number]) JENNIFER ARIAS UNKNOWN PROVIDER 11-25-2019 - Emergency ANA Johnston 11-25-2019 department [facility] al patient visit ANA ALVARADO ([id number]) JENNIFER ARIAS UNKNOWN PROVIDER 10-31-2019 - Emergency Lower abdominal NIKHIL Moreira e 10-31-[facility] NIKHIL Shannon ([id number]) JEAN ARIAS UNKNOWN PROVIDER 04-26-2020 - Letter encounter [facility] 04-26-2020 [facility] 05-14-2020 - Orders Only Liver cyst [facility]: [facility] (Primary Dx) 05-11-2020 - Orders Only Idiopathic acute [facility]all [facility] [place] 05-11-2020 pancreatitis Winn Comment: Idiopathic acute pancreatiti s, unspecified complication status (Primary Dx) surgical referral 05-10-2020 - Orders Only Idiopathic acute [facility] [place] 05-10-2020 pancreatitis [facility] Comment: Idiopathic acute pancreatiti s, unspecified complication status (Primary Dx) 06-05-2020 - Patient encounter Cyst of pancreas Mala [facility] 06-05-2020 procedure [facility] Comment: Pancreatic cyst (Primary Dx) 05-30-2020 - Patient [facility] Provider Adolfo lyle 05-30-2020 encounter procedure 05-24-2020 - Patient Abdominal Johnny Mccall Gastroenterolog y 05-24-2020 encounter bloating [facility] procedure Comment: Bloating (Primary Dx); Nausea and vomiting, intract ability of vomiting not specified, unspecified vomiting type; Diarrhea, unspecified type 05-23-2020 Patient encounter Postoperative pain Isabel Romero) [facility] procedure Arias [place] Comment: RE: Appointment Request 05-17-2020 - Patient encounter Shoulder pain Xr [facility] [place] Radiol[facility] 05-17-2020 procedure Kenia (Jaki) Bartolo Bernard (Jaki) Bartolo Comment: Radiology XR Acute pain of right shoulder (Primary Dx) 04-30-2020 - Patient encounter Generalized abdominal Us [facility] adiology 04-30-2020 procedure pain Mob 1 Comment: Radiology US 05-30-2020 Results Only [facility] Provider [facility] [place] [facility] Department 05-08-2020 - Subsequent Generalized Johnny Mccall Ambulatory 05-08-2020 hospital visit by abdominal pain [facility] Surgery physician Comment: Generalized abdominal pain [ R10.84] 06-05-2020 - Telemedicine Mala Almendarez [facility] c 06-05-2020 consultation with patient 05-24-2020 - Telemedicine Johnny Mccall [facility] [place] [facility] 05-24-2020 consultation with Hannah patient 06-15-2020 - Telephone encounter Local infection Taty (Chartered Financial Analyst [facility] 06-15-2020 of wound Vibratory Pile Driver) [facility] SURGERY DEPARTMENT Comment: Multiple Concerns 05-31-2020 - Telephone encounter Johnny Mccall Gastroen terology [place] 05-31-2020 [facility] Comment: Patient Update 05-18-2020 - Telephone Shoulder pain Marcelino Mejia [facility]uke 05-18-2020 encounter [place] Comment: Referral Request 05-07-2020 - Telephone encounter Johnny Mccall Gastroen [facility]ology [place] 05-07-2020 [facility] Comment: Patient Update 05-01-2020 - Telephone encounter Johnny Mccall Gastro[facility] [place] 05-01-2020 [facility] Comment: Results 04-30-2020 - Telephone encounter Johnny Mccall Gastroen terology [place] 04-30-2020 [facility] Comment: Returning Patient's Call 04-27-2020 - 04-27-2020 Telephone encounter Marcelino Mejia [facility] [place] Comment: Medication request Procedures Procedure Name Date Provider Location Antibody screen 06-11-2020 [facility] ([id number]) Comment: Performed By: #### CBCD1 ### # [place] [address] CARDIAC 05-30-2020 [facility] Provider [facility] (45202) Radex shoulder complete minimum 2 05-17-2020 - Kenia (Jaki) [facility] views 05-17-2020 [facility] (11068) SURGICAL PATHOLOGY 05-08-2020 Johnny Mccall [facility] (88982) Colonoscopy flx dx w/collj spec 05-08-2020 [facility] Provider [facility] when pfrmd (85945) Esophagogastroduodenoscopy 05-08-2020 [facility] Provider [facility] transoral diagnostic (10913) Us abdominal real time w/image 04-30-2020 - Johnny Mccall [facility] limited 04-30-2020 [facility] (50950) Urinalysis 10-31-2019 [facility] l (90399) Comment: Result Comment: URINALYSIS Performed By: #### [id number] ## ## [facility],[address] [place] [address] Plan of Treatment Plan Description Date Location DTAP,TDAP,TD (2 - Td) DTAP,TDAP,TD (2 - Td) 05-28-2025 - [facility] 05-28-2025 (10507) INFLUENZA (#1) INFLUENZA (#1) 2020 - [facility] 05-15-2020 (81798) MAMMOGRAM MAMMOGRAM 2019 - [facility] 2019 (95753) COLONOSCOPY COLONOSCOPY 1997 - [facility] 1997 (26952) HEPATITIS C SCREENING HEPATITIS C SCREENING 1997 - [facility] 1997 (08644) HIV SCREENING HIV SCREENING 1997 - [facility] 1997 (36275) COLONOSCOPY - COLONOSCOPY - DIAGNOSTIC 05-08-2020 [facility] DIAGNOSTIC Endoscopy Routine (63050) Generalized abdominal pain Loose stools Dyspepsia Gastroesophageal reflux disease, esophagitis presence not specified Other dysphagia History of acute pancreatitis Bloating Nausea and vomiting, intractability of vomiting not specified, unspecified vomiting type 1 Occurrences starting 05/08/2020 until 05/08/2020 Comment: 1 Occurrences starting 05/08 until 05/08/2020 EGD EUS EGD EUS Endoscopy Routine Idiopathic 05-10-2021 [facility] (31880) acute pancreatitis, unspecified complication status 1 Occurrences starting 05/10/2020 until 05/10/2021 Comment: 1 Occurrences starting 05/10 until 05/10/2021 EGD EGD Endoscopy Routine Generalized abdominal 04-15 [facility] (38022) pain Loose stools Dyspepsia Gastroesophageal reflux disease, esophagitis presence not specified Other dysphagia History of acute pancreatitis Bloating Nausea and vomiting, intractability of vomiting not specified, unspecified vomiting type 1 Occurrences starting 05/08/2020 until 05/08/2020 Comment: 1 Occurrences starting 05/08 until 05/08/2020 MRI ABDOMEN WO/W IVCON MRI ABDOMEN WO/W IVCON 07-05-2021 Cl [facility] (74060) Radiology Routine Pancreatic cyst 1 Occurrences starting 06/05/2020 until 07/05/2021 Comment: 1 Occurrences starting 06/05 until 07/05/2021 PRE-PROCEDURE & PRE-PROCEDURE & 05-10-2021 [facility] PRE-OPERATIVE COVID PRE-OPERATIVE COVID (35970) Microbiology Routine Idiopathic acute pancreatitis, unspecified complication status 1 Occurrences starting 05/10/2020 until 05/10/2021 Comment: 1 Occurrences starting 05/10 until 05/10/2021 SURGICAL PATHOLOGY SURGICAL PATHOLOGY Lab Routine [facility] (84518) 05/08/2020 1:17 PM EDT no information [facility] (57372) Immunizations Vaccine Notes Status Date Location Influenza Seasonal influenza, seasonal, (completed) 05-11-2020 - [facility] Inj Age 3+ injectable 05-11-2020 (03697) Influenza Seasonal influenza, seasonal, (completed) 05-31-2019 - C [facility] Inj Age 3+ injectable 05-31-2019 (33667) Pneumovax pneumococcal (completed) 05-19-2017 - [facility] c polysaccharide vaccine, 05-19-2017 (441 95) 23 valent Tdap (Age 7+) tetanus toxoid, reduced (completed) 05-28-2015 - [facility] diphtheria toxoid, and 05-28-2015 (4419 5) acellular pertussis vaccine, adsorbed Payers Payer Name Policy Number Location [facility] [id number] [facility] OUTPATIENT ([id number]) [employer] [employer] [id number] [facility] (40 524) [id number] [id number] [facility] ([id number]) [id number] [facility] ([id number]) [id number] [facility] ([id number]) [id number] [facility] (93195) The following information is from the original human readable contentNo Payer Records FoundNo Payer Records FoundNo Payer Records FoundNo Payer Records FoundNo Payer Records FoundNo Payer Records FoundNo Payer Records FoundNo Payer Records FoundNo Payer Records Found Social History Type Social History Date Location Description History of tobacco use Current smoker 01-12-2017 [facility] (90084) Alcohol Comment Occasional 11-26-2010 - [facility] 11-26-2010 (65186) History of tobacco use Cigarette Smoker 01-12-2017 [facility] (94512) Cigarettes smoked 05-17-2020 - [facility] current (pack per day) 06-08-2020 (20422) - Reported Tobacco use and Never used 05-17-2020 - [facility] exposure 06-08-2020 (91260) Alcohol intake Current drinker of 05-17-2020 - [facility] alcohol (finding) 06-08-2020 (03831) Tobacco Comment Approx. 3 cigarettes 03-10-2011 - [facility] daily-1 pack every week 03-10-2011 (18962) Tobacco smoking status Former smoker 05-17-2020 - [facility] NHIS 06-08-2020 (10242) Sex Assigned At Not on file [facility] (89765) Exposure to SARS-CoV-2 Not sure [facility] (event) (16769) History SDOH Financial 5 06-08-2020 - [facility] 06-08-2020 (78579) History SDOH Food Worry 1 06-08-2020 - [facility] 06-08-2020 (61455) History SDOH Transport 2 06-08-2020 - [facility] 06-08-2020 (22905) Exposure to SARS-CoV-2 Yes [facility] (event) (32589) The following information is from the original [...] [facility] MD documented in this encounterKenia Mcfarland (Vibratory Pile Driver) - 05/17/2020 11:57 AM EDT Visit Date: May 17, 2020 Patient Name: Ms.Nichole Jeana Mcgregor Date of : 1980 MRN/E #: [id number] Chief Complaint Patient presents with: right shoulder [...] history is provided by the patient. 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 PAIN EVALUATION 05/17/2020 1153 Pain [...] Benign liver cyst 05/24/2010 CT scan at [facility] 11/2009 and 04/2010 showe 4 mm increase in size. No pain. No elevated LFTs on 03/11/2010. ? Calculus of kidney 05/17/[address] Nicolas: Hospitalized age 20, and again later -- no procedures so far ([facility], [facility]) ? Dysmenorrhea ? History of blood transfusion [...] go to the ED. Patient went to [place] ED and mentions 'nothing was done. They [...] note she presented to the ED in [place] in January 2020 for abdominal pain of [address] abdomen was essentially unremarkable including pancreas. Was found to have lipase of 193 on 02/15/2020. Amylase normal. Hepatic function panel. ? Has h/o cholecystectomy in 1998. PAST MEDICAL HISTORY Diagnosis Date ? Allergic rhinitis, cause unspecified 05/17/2008 Spring and summer ? Benign liver cyst 05/24/2010 CT scan at [facility] 11/2009 and 04/2010 showe 4 mm increase in size. No pain. No elevated LFTs on 03/11/2010. ? Calculus of kidney 05/17/[address] Nicolas: Hospitalized age 20, and again later -- no procedures so far ([facility], [facility]) ? Cancer (HCC) ? Diverticulosis ? Dysmenorrhea [...] removed ? TOTAL ABDOM HYSTERECTOMY 08/31/06 Hysterectomy, [facility] H[facility] Problem Relation Age of [...] the ED yesterday - she went to [place] ED and was told that pancreas levels [...] for nausea. Advised to go to the [facility] ED if no improvement in symptoms. 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(s) 05/08/2020 12:13 PM Advance Directive(s) 05/25/2020 7:47 AM Advance Directive(s) 06/08/2020 9:30 AM Documents on File Type Date Recorded 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(s) 05/08/2020 12:13 PM Advance Directive(s) 05/25/2020 7:47 AM Advance Directive(s) 06/08/2020 9:30 AM Documents on File Type Date Recorded 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 Directive(s) 05/08/2020 12:13 PM [...] NEW PATIENT VISIT LEVEL 5 [address] [facility] [address] [facility] [place], [place] [id number] Phone: Fax: Status Reason Specialty Diagnoses / Referred By Referred To Procedures Contact Contact Authorized PCP Requested Orthopedics Diagnoses Acute shoulder pain, unspecified laterality Marcelino Mejia Referral Procedures CONSULT TO ORTHOPAEDICS NEW PATIENT VISIT LEVEL 5 [address] [place] [address] Status Reason Specialty Diagnoses / Referred By Referred To Procedures Contact Contact Pending Review Auto-Generated MR IMAGING Diagnoses Pancreatic cyst Mala Almendarez Mr Imaging Referral Procedures MRI ABDOMEN WO/W IVCON MRI,ABDOMEN,W&WO CONTRS [address] [address] Status Reason Specialty Diagnoses / Procedures Referred By C ryan Referred To Contact Closed Diagnoses Post-op pain Mala Almendarez [address] [address] Phone: Instructions Patient InstructionsKenia Mcfarland) - 05/17/2020 [...] BE BASED ON THE PRIMARY CLINICAL RECORDS. [facility] provides no warranty or guarantee of the accuracy or completeness of information in this document. UNRECOGNIZED CONTENT PROVIDED BELOW FOR UNRECOGNIZED SECTION Source Comments In the event this information is protected by the Federal Confidentiality of Alcohol and Drug Abuse Patient Records regulations: The Federal rules restrict any use of the information to criminally investigate or prosecute any alcohol or drug abuse patient.[facility] the event this information is protected by the Federal Confidentiality of Alcohol and Drug Abuse Patient Records regulations: The Federal rules restrict any use of the information to criminally investigate or prosecute any alcohol or drug abuse patient.[facility] TroyIn the event this information is protected by the Federal Confidentiality of Alcohol and Drug Abuse Patient Records regulations: The Federal rules restrict any use of the information to criminally investigate or prosecute any alcohol or drug abuse patient.[facility] TroyIn the event this information is protected by the Federal Confidentiality of Alcohol and Drug Abuse Patient Records regulations: The Federal rules restrict any use of the information to criminally investigate or prosecute any alcohol or drug abuse patient.[facility] TroyIn the event this information is protected by the Federal Confidentiality of Alcohol and Drug Abuse Patient Records regulations: The Federal rules restrict any use of the information to criminally investigate or prosecute any alcohol or drug abuse patient.[facility] TroyIn the event this information is protected by the Federal Confidentiality of Alcohol and Drug Abuse Patient Records regulations: The Federal rules restrict any use of the information to criminally investigate or prosecute any alcohol or drug abuse patient.[facility] TroyIn the event this information is protected by the Federal Confidentiality of Alcohol and Drug Abuse Patient Records regulations: The Federal rules restrict any use of the information to criminally investigate or prosecute any alcohol or drug abuse patient.[facility] TroyIn the event this information is protected by the Federal Confidentiality of Alcohol and Drug Abuse Patient Records regulations: The Federal rules restrict any use of the information to criminally investigate or prosecute any alcohol or drug abuse patient.[facility] TroyIn the event this information is protected by the Federal Confidentiality of Alcohol and Drug Abuse Patient Records regulations: The Federal rules restrict any use of the information to criminally investigate or prosecute any alcohol or drug abuse patient.[facility] TroyIn the event this information is protected by [...] or prosecute any alcohol or drug abuse patient.[facility] TroyIn the event this information is protected by the Federal Confidentiality of Alcohol and Drug Abuse Patient Records regulations: The Federal rules restrict any use of the information to criminally investigate or prosecute any alcohol or drug abuse patient.[facility] TroyIn the event this information is protected by the Federal Confidentiality of Alcohol and Drug Abuse Patient Records regulations: The Federal rules restrict any use of the information to criminally investigate or prosecute any alcohol or drug abuse patient.[facility] TroyIn the event this information is protected by the Federal Confidentiality of Alcohol and Drug Abuse Patient Records regulations: The Federal rules restrict any use of the information to criminally investigate or prosecute any alcohol or drug abuse patient.[facility] TroyIn the event this information is protected by the Federal Confidentiality of Alcohol and Drug Abuse Patient Records regulations: The Federal rules restrict any use of the information to criminally investigate or prosecute any alcohol or drug abuse patient.[facility] TroyIn the event this information is protected by the Federal Confidentiality of Alcohol and Drug Abuse Patient Records regulations: The Federal rules restrict any use of the information to criminally investigate or prosecute any alcohol or drug abuse patient.[facility] TroyIn the event this information is protected by the Federal Confidentiality of Alcohol and Drug Abuse Patient Records regulations: The Federal rules restrict any use of the information to criminally investigate or prosecute any alcohol or drug abuse patient.[facility] TroyIn the event this information is protected by the Federal Confidentiality of Alcohol and Drug Abuse Patient Records regulations: The Federal rules restrict any use of the information to criminally investigate or prosecute any alcohol or drug abuse patient.[facility] TroyIn the event this information is protected by the Federal Confidentiality of Alcohol and Drug Abuse Patient Records regulations: The Federal rules restrict any use of the information to criminally investigate or prosecute any alcohol or drug abuse patient.[facility] TroyIn the event this information is protected by the Federal Confidentiality of Alcohol and Drug Abuse Patient Records regulations: The Federal rules restrict any use of the information to criminally investigate or prosecute any alcohol or drug abuse patient.[facility] TroyIn the event this information is protected by the Federal Confidentiality of Alcohol and Drug Abuse Patient Records regulations: The Federal rules restrict any use of the information to criminally investigate or prosecute any alcohol or drug abuse patient.[facility] TroyIn the event this information is protected by the Federal Confidentiality of Alcohol and Drug Abuse Patient Records regulations: The Federal rules restrict any use of the information to criminally investigate or prosecute any alcohol or drug abuse patient.[facility] TroyIn the event this information is protected by the Federal Confidentiality of Alcohol and Drug Abuse Patient Records regulations: The Federal rules restrict any use of the information to criminally investigate or prosecute any alcohol or drug abuse patient.[facility] UNRECOGNIZED CONTENT PROVIDED BELOW FOR UNRECOGNIZED SECTION [...] dyspepsia,gerd,dysphagia 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, 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 Johnny Winn [place] ENDOSCOPY Procedures COLONOSCOP W/ OR W/O RUST SPEC EGD W/O OR W/BRUSH/WASH COLONOSCOPY W/EGD Cal Mccall [address] [place], [place] [address] Phone: [place], [place] [phone] Fax: Reason Onset Date Comments Patient [...] DATE CREATED AUTHOR AUTHOR'S ORGANIZATIO N 10/21/2019 [facility] DATE CREATED AUTHOR AUTHOR'S ORGANIZATIO N 04/06/2020 [facility] DATE CREATED AUTHOR AUTHOR'S ORGANIZATIO N 02/26/2020 [facility] ([place]) DATE CREATED AUTHOR AUTHOR'S ORGANIZATIO N 06/11/2020 [facility] DATE CREATED AUTHOR AUTHOR'S ORGANIZATIO N 06/21/2020 [facility] DATE CREATED AUTHOR AUTHOR'S ORGANIZATIO N 06/26/2020 [facility] UNRECOGNIZED CONTENT PROVIDED BELOW FOR [...] pcp would send Rx for phenergan to [facility]. Reports she's had nausea for weeks. [...] panel was not drawn, left message with [facility] [place] lab to contact patient for redraw Pierce [...] or do not improve. Taty Perea APRN, MEDICAL ADVISOR documented in this encounter UNRECOGNIZED CONTENT PROVIDED [...]
--- OUTSIDE RECORDS SUMMARY | 2020-06-26 18:53 | XMS RPT_ITS | CCD ---
:1980 External Reference #:[id number] Author Organization [facility] Care Team Providers Name Role Phone [...] Cephalexin Itching 10-20-2019 - [facility] ([id number]) Chlorhexidine Rash 10-29-2016 - [facility] (17022) CONTRAST MEDIA, Moderate Mello Pomeren e IODINE RELATED ([facility]) Repository (Qualifier Value) Ibuprofen GI Upset Low 06-18-2016 - [facility] (11167) Ibuprofen Moderate [facility] ([facility]) Repository (Qualifier Value) Iodine Shortness of Breath Low 05-17-2008 - [facility] (85139) Ketorolac Moderate [facility] ([facility]) Repository (Qualifier Value) Ketorolac Rash 05-25-2020 - [facility] (88632) metroNIDAZOLE Moderate [facility]ello [facility] ([facility] Mod[facility]) Repository (Qualifier Value) Penicillins [facility][id number] Penicillins Moderate [facility]ello [facility] ([facility]) Repository (Qualifier Value) predniSONE Other: See Comments Low [facility]-18-2016 [facility] (91895) Promethazine Moderate Mello [facility] ([facility]) Repository (Qualifier Value) Salicylic Acid Other: See Comments Low 01-27-2011 - [facility] ([id number]) traMADol Rash 05-25-2020 - [facility] (46223) Medications Medication Name Sig Date Prescriber Location Albuterol albuterol HFA (VENTOLIN [facility] Provider [facility] ([id number]) HFA) 90 mcg/actuation inhaler Inhale 2 Puffs as instructed every 4 hours as needed. 0 Active Comment: Inhale 2 Puffs as instructed every 4 hours as needed. Bifidobacterium Bifidobacterium 04-26-2020 - Johnny [facility] Infantis (ALIGN) 4 mg 07-25-2020 [facility] (94321) cap Take 1 capsule by mouth once daily. 30 capsule 2 04/26/2020 07/25/2020 Active Comment: Take 1 capsule by mouth once daily. Clindamycin clindamycin (CLEOCIN) 06-15-2020 - Jonh (Res) [facility] 300 mg capsule 06-26-2020 [facility] (17308) Indications: Incisional infection Take 1 capsule by mouth four times daily for 5 days. 20 capsule 0 06/21/2020 06/26/2020 Active Comment: Take 1 capsule by mouth four times daily for 5 days. diazePAM diazePAM (VALIUM) 5 mg 06-05-2020 - [facility] tablet Indications: 06-07-2020 Mala [facility] (92907) Pancreatic cyst Take 1 tablet by mouth once daily for 2 days. 2 tablet 0 06/05/2020 06/07/2020 Active Comment: Take 1 tablet by mouth once daily for 2 days. Dicyclomine dicyclomine (BENTYL) 04-26-2020 - Johnny Mccall [facility] 10 mg capsule Take 1 05-24-[address] [facility] (05950) capsule by mouth before meals and at bedtime. Use as directed 90 capsule 1 04/26/2020 05/24/2020 Discontinued Comment: Take 1 capsule by mouth befo re meals and at bedtime. Use as directed diphenhydrAMINE diphenhydrAMINE (BENADRYL) 03-29-2019 [facility] Provide r [facility] 25 mg capsule Take 50 mg (44 195) by mouth every 6 hours as needed. 0 03/29/2019 Active Comment: Take 50 mg by mouth every 6 hours as needed. Docusate docusate sodium 06-21-2020 Jonh (Res) [facility] (COLACE) 100 mg capsule Bertke (441 95) Take 1 capsule by mouth twice daily. 60 capsule 0 06/21/2020 Active Comment: Take 1 capsule by mouth twic e daily. Estradiol estradiol (ESTRACE) 2 mg 03-23-2020 [facility] Provider [facility] (71515) tablet Take 2 mg by mouth once daily. 0 03/23/2020 Active Comment: Take 2 mg by mouth once kehinde y. HYDROmorphone HYDROmorphone 06-12-2020 - Mala Almendarez [facility] nghia (HYDROMORPHONE) 2 mg 06-19-2020 (88263) tablet Indications: Post-op pain Take 1 tablet by mouth every 3 hours as needed for Pain for up to 7 days. 40 tablet 0 06/12/2020 06/19/2020 Active Comment: Take 1 tablet by mouth every 3 hours as needed for Pain for up to 7 days. Hyoscyamine hyoscyamine (LEVSIN) 05-24-2020 Johnny Mccall [facility] 0.125 mg tablet Take 1 [facility] (4419 5) tablet by mouth every 6 hours as needed. 60 tablet 1 05/24/2020 Active Comment: Take 1 tablet by mouth every 6 hours as needed. iv contrast (will iv contrast (will be 06-05-2020 - Mala Almendarez [facility] be provided with provided with 06-06-2020 Mala Almendarez (47002) radiology test) radiology test) MRI ABDOMEN Inject, [...] (FLAGYL) 04-26-2020 - Johnny Mccall [facility] 500 mg tablet Take 1 05-03-2020 [facility] (26125) tablet by mouth three times daily for 7 days. 21 tablet 0 04/26/2020 05/03/2020 Active Comment: Take 1 tablet by mouth three times daily for 7 days. Naloxone naloxone 4 mg/actuation 06-21-2020 Jonh (Res) [facility] nasal spray (NARCAN) Use Chad (02 195) 1 spray in one nostril as [...] oxyCODONE IR 06-21-2020 - Maria Luisa Trejo [facility] (ROXICODONE) 5 mg 06-26-2020 (89283) immediate release tablet Indications: Benign liver cyst Take 1 tablet by mouth every 8 hours as needed for up to 5 days. 15 tablet 0 06/21/2020 06/26/2020 Active oxyCODONE IR 05-29-2020 - Sorin (Res) [facility] (ROXICODONE) 5 mg 06-03-2020 Alhalalmeh (03933) immediate release tablet Indications: Intractable nausea and [...] [facility] (PROTONIX) 40 mg 04-30-2020 [facility] (39990) tablet Take 1 tablet by mouth daily before breakfast. Take on empty stomach, 1/2 hr before meal. 30 tablet 3 04/30/2020 Active Comment: Take 1 tablet by mouth daily before breakfast. Take on empty stomach, 1/2 hr before meal. POLYETHYLENE GLYCOL polyethylene glycol 06-21-2020 - [place] (Res ) [place] 3350 3350 (MIRALAX) 17 07-22-2020 [facility] (44 195) gram/dose powder Dissolve 1 packet in 4-8 ounces of liquid and drink by mouth once daily as directed. 476 g 0 06/21/2020 07/22/2020 Active Comment: Dissolve 1 packet in 4-8 oun simi of liquid and drink by mouth once daily as directed. POLYETHYLENE GLYCOL peg 3350-Electrolytes 04-26-2020 - Johnny Mccall [place] 3350 / Potassium (GOLYTELY) 04-26-2020 [facility] (441 95) Chloride / Sodium 236-22.74-6.74 -5.86 Johnny Mccall Bicarbonate / gram suspension [facility] Sodium Chloride / Indications: sodium sulfate Generalized [...] 1 mg cap Take 1 [facility] Provider [facility] (24369) mg by mouth daily at bedtime. 0 Active Comment: Take 1 mg by mouth daily at bedtime. pregabalin pregabalin (LYRICA) 06-25-2020 - Mala [facility]liver [facility] 300 mg capsule 07-09-2020 Mala Almendarez (59517) Indications: Post-op pain Take 1 capsule by mouth twice daily for 14 days. 28 capsule 0 06/25/2020 07/09/2020 Active Comment: Take 1 capsule by mouth twic e daily for 14 days. Promethazine promethazine (PHENERGAN) 05-24-2020 Johnny [facility] 25 mg tablet Take 1 [facility] (94934) tablet by mouth every 8 hours as needed (for nausea). 10 tablet 0 05/24/2020 Active Comment: Take 1 tablet by mouth every 8 hours as needed (for nausea). QUEtiapine QUEtiapine (SEROQUEL) 02-23-2020 Marcelino Mejia [facility] 100 mg tablet Take 1 (96961) tablet by mouth once daily. 0 02/23/2020 Active Comment: Take 1 tablet by mouth once daily. Sertraline sertraline (ZOLOFT) 100 02-23-2020 Marcelino Ferreira [place] [facility] mg tablet Take 1 tablet (441 95) by mouth once daily. 0 02/23/2020 Active Comment: Take 1 tablet by mouth once daily. Sucralfate sucralfate (CARAFATE) 1 05-24-2020 Johnny Mccall Naya hu [facility] gram tablet Take 1 (85008) tablet by mouth four times daily. 30 tablet 0 05/24/2020 Active Comment: Take 1 tablet by mouth four times daily. Problems Active Problems Category Problem Name Status Date Location Abdominal pain Lower abdominal pain, Active 10-31-2019 - [facility]15[facility] Anxiety disorders Generalized anxiety Active 03-31-2016 - [facility] disorder (73622) Esophageal disorders Gastroesophageal reflux Active [facility] disease (41495) Headache; including Migraine without aura Active 05-17-2008 - [facility] migraine [facility]48540[facility] Mood disorders Reactive depression Active 03-31-2016 - [facility] (situational) (83322) Nausea and vomiting Nausea and vomiting Active 05-25-2020 - [facility] (42690) Other disorders of Indigestion Active [facility] stomach and duodenum (99742) Other gastrointestinal Diarrhea Active [facility] disorders (79134) Other gastrointestinal Loose stool Active [facility] disorders (61560) Other gastrointestinal Abdominal bloating Active [facility] disorders (52314) Other gastrointestinal Dysphagia Active [facility] disorders (36975) Other gastrointestinal Personal history of Active [facility] disorders other diseases of the (52877 ) digestive system Other infections; Local infection of wound Active [facility] including parasitic (30207) Other liver diseases Liver cyst Active 05-24-2010 - [facility] (88096) Other nervous system Postoperative pain Active 06-19-2020 - [facility] disorders (20573) Other nervous system Chronic pain syndrome Active 06-06-2020 - [facility] disorders (57747) Other non-traumatic joint Shoulder pain Active [facility] disorders (40951) Other upper respiratory Allergic rhinitis Active 05-17-2008 - [facility] disease (05672) Pancreatic disorders (not Idiopathic acute Active [facility] diabetes) pancreatitis (48194) Paralysis Weakness of right leg Active 02-23-2017 - [facility] (89962) Substance-related Smoker Active 05-17-2008 - Mello Pomer willem disorders [facility] (34631) Unclassified Patient encounter status Active 05-17-2008 - [facility] (97816) Past or Other Problems Category Problem Name Status Date Location Allergic reactions Allergy status to Completed 10-31-2019 - Melol Pomerene narcotic agent status [facility] (18127) Blindness and vision Blurring of visual Completed 02-23-2017 - [facility] defects image (27877) Calculus of urinary Kidney stone Completed 05-17-2008 - [facility] tract (61928) Diabetes mellitus Impaired fasting Completed 05-17-2008 - [facility] without complication glycaemia (31694) Miscellaneous mental Adjustment insomnia Completed 03-31-2016 - [facility] health disorders (22077) Other connective tissue Muscle weakness of Completed 02-23-2017 - [facility] disease upper limb (86615) Other connective tissue Trochanteric bursitis Completed 06-18-20 - [facility] disease (20659) Other diseases of Hydroureter Completed 02-05-2017 - [facility] kidney and ureters (81017) Other diseases of Hydronephrosis Completed 02-05-2017 - [facility] kidney and ureters (20105) Other lower respiratory Multiple nodules of Completed 01-22-2020 - [facility] disease lung (66732) Other nervous system Numbness of lower limb Completed 02-23-2017 - [facility] disorders (85316) Other nervous system Numbness of upper limb Completed 02-23-2017 - [facility] disorders (65431) Other nervous system Numbness of face Completed 02-23-2017 - [facility] disorders (39218) Other non-traumatic Hip pain Completed 06-18-2016 - [facility] joint disorders (74062) Other screening for MRI of lumbar spine Completed 02-23-2017 - [facility] suspected conditions abnormal (11994) (not mental disorders or infectious disease) Ovarian cyst Cyst of ovary Completed 07-15-2012 - [facility] (81565) Residual codes; Acquired absence of Completed 10-31-2019 - [facility] unclassified both cervix and uterus [facility] (54925) Residual codes; Acquired absence of Completed 10-31-2019 - [facility] unclassified other specified parts [facility] of digestive tract (53281) Residual codes; FH: Diabetes mellitus Completed 05-17-2008 - [facility] unclassified (18836) Spondylosis; Low back pain Completed 06-18-2016 - [facility] intervertebral disc (23322) disorders; other back problems Results Result Name Value Range Unit Interpretation Flag Date Location obsolete on 2020-06 OBSOLETE Refill ([facility]) Normal 06-25-2020 [facility] SALLY MCGREGOR ([id number]) 1980 F Medical Date Time Provider Department Center 06/25/20 MALA ALMENDAREZ [facility] ([id number]) During your visit today, we recorded the [...] 06/25/20 progress on 2020-06 PROGRESS HNO ID: [id number] Normal 06-21-2020 Milka Dumont Author: Maria Luisa K [facility] Service: Pain Management (12130) Author Type: Physician Type: Progress Notes Filed: [...] Approx. 3 cigarettes daily-1 pack every w zuni Substance Use Topics - Alcohol use: Yes [...] and migraine headache. She was referred to [facility] pain management but was unable to go [...] pain. Small quantity oxycodone prescription sent to [facility] Maria Luisa Trejo MD plan of care on PLAN OF CARE HNO ID: [id number] Normal 06-21-20 [facility] Author: Rhonda Holman (Pharmacist) Center (85113) Service: Pharmacy Author Type: Pharmacist Type: Plan [...] PHARMACIST June 21, 2020 11:55 AM Pager: [phone] 06/21/2020 11:55 AM Medication List START taking [...] Your Medications These medications were sent to [facility] [address] [place], [place] [id number] Hours: Thursday-Thursday, 8am-6:30pm ? clindamycin 300 mg capsule ? docusate sodium 100 mg capsule ? naloxone 4 mg/actuation nasal spray ? oxyCODONE IR 5 mg immediate release tablet ? polyethylene glycol 3350 17 gram/dose powder nursing prog on NURSING HNO ID: [id number] Normal 06-21-2020 [place] [facility] Author: Silvia Naranjo) VIN Gomez General Service: ? Medical Author Type: Registered Nurse Center Type: Nursing Progress Note ([id number]) Filed: 06/20/2020 11:32 PM Note Text: Nursing Progress Note Patient Name: Sally Mcgregor Patient Location: [id number] Pt has been eating better and was told by the doctor that wh en her intake improved the fluids could be discontinued. Pt does not want fluids to continue so RN stopped fluids on pt's request. Doctor note i ndicated what the pt said. This note was completed by: Silvia Gomez RN progress on 2020-06 PROGRESS HNO ID: [id number] Normal 06-20-2020 [place] Author: Jonh Urrutia DO General Service: General Surgery Medical Author Type: Resident Center Type: Progress Notes ([id number]) Filed: 06/20/2020 8:38 AM Note Text: Attestation signed by Mala Almendarez at 06/20/2020 2:18 PM I saw and evaluated the patient. Discussed with the reside nt and agree with resident's findings and plan as documented in the resident's note. [facility] Progress Note SERVICE DATE: 06/20/2020 [facility] Service Pager: For questions or concerns Mon-Fri 6a-5p please page [phone]. After 5pm and on Weekends and Holidays, please page [phone]. SUBJECTIVE: Doing better this morning. Says pain [...] - enteric contrast (radiology procedure) ORAL DIRECTED NV N - oxyCODONE IR 5-10 mg tab(s) [...] questions or concerns Mon-Fri 6a-5p please page [phone]. After 5pm and on Weekends and Holidays, please page [phone] if in ICU or [phone] if on RNF. plan of care on PLAN OF CARE HNO ID: [id number] Normal 06-20-20 20 [facility] Medical Author: Nancy Abebe [place] ([id number]) Service: General Surgery Author Type: Resident Type: [...] history physical on 2020-06-20 HISTORY HNO ID: [id number] Normal 06-20-2020 [place] PHYSICAL Author: Nancy Abebe [facility] Service: General Surgery Medical Author Type: Resident Center Type: HAND ([id number]) Filed: 06/19/2020 11:38 PM Note Text: Attestation signed by Mala Almendarez at 06/20/2020 2:18 PM Attending Note I personally saw and examined the patient. I reviewed the resident's note. I agree with the resident's assessment and plan with the [facility] revisions and/or additions: CT scan reviewed. [...] get worse. She was se nt to [facility] ED, where she was given IV Dilauded and transferred here to [facility]. Pt reports that she is urinating, passing flatus and BMs. No N/ V. No fevers or chills. Last PO was at 1300h. Pt has a h/o multiple abd surgeries. Reformed smoker x5 anai hs. FUNCTIONAL STATUS: Independent PAST MEDICAL HISTORY Diagnosis Date - Allergic rhinitis, cause unspecified 05/17/2008 Spring and summer - Benign liver cyst 05/24/2010 CT scan at [facility] 11/2009 and 04/2010 showe 4 mm increase in size . No pain. No elevated LFTs on 03/11/2010. - Calculus of kidney 05/17/[address] Nicolas: Hospitalized age 20, and again later -- no procedures so far ([facility], [facility], 1995 [facility]) - Cancer (HCC) - Diverticulosis - [...] Approx. 3 cigarettes daily-1 pack every w zuni Substance Use Topics - Alcohol use: Yes [...] oz (86.0kg) SpO2 100% LMP 08/10/2006 B [place] 35.84 kg/(m2). O2 Therapy: Room Air DATA: [...] DATE OF EXAM: Jun 20 2020 11:59AM [facility] 0530 - CT ABD/PEL W IVCON / (35222) PROCEDURE REASON: Abd pain, unspecified Physician Interpretation [...] ed portions of the heart are unremarkable. Bilingual Call Center Representative (topogram) images: No additional findings. IMPRESSION: 1. Postsurgical changes in the posterior right hepatic dome with residual 8.3 cm cystic cavity with trace likely postsurgical gas, but no peripheral enhancement to suggest acute inflammation. 2. Other hepatic cyst are unchanged. 3. No acute intra-abdominal or pelvic findings. Sign Writer Letterer Or Painter: HERMINIO Transcribe Date/Time: Jun 20 2020 12:16P Dictated by : NILAM OVIEDO MD This examination was interpreted and the report reviewed and electronically signed by: NILAM OVIEDO MD on Jun 20 2020 12:28PM EST consult on CONSULT HNO ID: [id number] Normal 06-20-2020 [place] [facility] Author: [facility] Anya [facility] Service: Pain Management ([id number]) Author Type: Physician Type: Consults Filed: 06/20/2020 [...] - enteric contrast (radiology procedure) ORAL DIRECTED NV N Kaushal (Res) DO Grupo - oxyCODONE [...] 1 gram tablet, Take 1 tablet by [facility] four times daily., Disp: 30 [...] Approx. 3 cigarettes daily-1 pack every w zuni Substance Use Topics - Alcohol use: Yes [...] and migraine headache. She was referred to [facility] management but was unable to go [...] health on 03-07-07 [facility] HNO ID: [id number] Normal 020 [place] [facility] Author: Holly PickardRt) [facility] Service: Radiology ( 33849) Author Type: Seam Press Operator Type: Allied Health Filed: 06/20/2020 12:04 [...] unstable renal function, e.g. those with ac [place] kidney injury, the eGFR may not accurately reflect actual GFR. eGFR- Date Value Ref Range Status 06/19/2020 >60 Final 02/15/2020 >60 Final P.O.C.T. RESULTS: N/A June 20, 2020 TREATMENT: N/A and No Hydration needed. PERIPHERAL IV DATA: Inpatient - refer to [facility] documentation RADIOLOGY DEPARTMENT: CT; Exam(s) Completed: Abdomen/Pelvis SIGNATURE: RT Jada PATIENT NAME: Sally caldwell DATE: June 20, 2020 TIME: 11:59 AM comp metab 1999 pnl serpl on 2020-06-19 Albumin [Mass/Vol] 4.3 3.9-4.9 g/dL Normal 06-19-2020 [facility] (73716) Comment: Order Comment: Specimen Type : BLOOD SPECIMEN Performed By: #### 73058-0 # ###[facility] LABORATORYCLIA [id number] [facility] [place] [address] ALP [Catalytic activity/Vol] 110 34-123 U/L Normal 1 0-06-2020 [facility] (00 000) Comment: Order Comment: Specimen Type : BLOOD SPECIMEN Performed By: #### 29091-9 # ###[facility]CLIA [id number] [facility] [place] [place] [address] ALT With P-5'-P [Catalytic 16 7-38 U/L Normal [facility] Medical activity/Vol] [place] (30829) Comment: Order Comment: Specimen Type : BLOOD SPECIMEN Performed By: #### 30145-4 # ###[facility]ORYCLIA [id number] [facility] [place] [address] Anion gap [Moles/Vol] 13 9-18 mmol/L Normal 06-19-20 20 [facility] (18507) Comment: Order Comment: Specimen Type : BLOOD SPECIMEN Performed By: #### 82373-8 # ###[facility]ORYCLIA [id number] [facility] [place] [address] AST With P-5'-P [Catalytic 19 13-35 U/L Normal [facility] activity/Vol] [place] (50359) Comment: Order Comment: Specimen Type : BLOOD SPECIMEN Performed By: #### 72775-6 # ###[facility]ORYCLIA [id number] [facility] [place] [address] Bilirubin [Mass/Vol] 0.2 0.2-1.3 mg/dL Normal 0 [facility] (10121) Comment: Order Comment: Specimen Type : BLOOD SPECIMEN Performed By: #### 54169-9 # ###[facility]ORYCLIA [id number] [facility] [place] [address] Calcium [Mass/Vol] 9.1 8.5-10.2 mg/dL Normal 06-19-2020 [facility] (49710) Comment: Order Comment: Specimen Type : BLOOD SPECIMEN Performed By: #### 41322-3 # ###[facility]ORYCLIA [id number] [facility] [place] [address] Chloride [Moles/Vol] 102 97-105 mmol/L Normal 0 [facility] (83674) Comment: Order Comment: Specimen Type : BLOOD SPECIMEN Performed By: #### 97367-5 # ###[facility]ORATORYCLIA [id number] [facility] [place] [address] CO2 [Moles/Vol] 22 22-30 mmol/L Normal 06-19-2020 [facility] (78272) Comment: Order Comment: Specimen Type : BLOOD SPECIMEN Performed By: #### 62062-4 # ###[facility] LABORATORYCLIA [id number] [facility] [place] [address] Creatinine [Mass/Vol] 0.88 0.58-0.96 mg/dL Normal 06-19-20 20 [facility] (00 000) Comment: Order Comment: Specimen Type : BLOOD SPECIMEN Performed By: #### 88334-5 # ###[facility]ORATORYCLIA [id number] [facility] [place] [address] GFR/1.73 sq M.predicted >60 mL/min/{1.73_m2} Normal 06-19-2020 [facility] MDRD (S/P/Bld) [[facility] rate/Area] (85756) Comment: Order Comment: Specimen Type : BLOOD SPECIMEN Result Comment: >60 eGFR (Estimated GFR) Units o f measure: mL/min/1.73 meters squared eGFR is derived from the ree xpressed MDRD Study equation using the following parameters: serum creatinine, age, gender and race. The creatinine assay has been calibrated to be traceable to IDDE. An eGFR <60 mL/min/1.73m2 for >3 mo nths is consistent with chronic kidney disease. Refer to KDOQI guidelines for clinical interpretation. In patients with unstable renal function, e.g. those with acute k idney injury, the eGFR may n ot accurately reflect actual GFR. Performed By: #### 13961-9 # ###[facility] LABORATORYCLIA [id number] [facility] [place] [address] Glucose [Mass/Vol] 100 74-99 mg/dL High 06-19-2020 [facility] (43745) Comment: Order Comment: Specimen Type : BLOOD SPECIMEN Result Comment: The [place] Diabetes Association (ADA) provides guidance for cutoff [...] diabetes. Reference: Standards of [facility] Care in Diabetes 2016, [place] Diabetes Association. Diabetes Care. 2016.39(Suppl 1). Performed By: #### 03240-5 # ###[employer] [facility] LABORATORYCLIA [id number] [facility] [place] [address] Potassium [Moles/Vol] 3.8 3.7-5.1 mmol/L Normal 06-19-20 20 [facility] (00 000) Comment: Order Comment: Specimen Type : BLOOD SPECIMEN Performed By: #### 47887-3 # ###[facility] LABORATORYCLIA [id number] [facility] [place] [address] Protein [Mass/Vol] 7.7 6.3-8.0 g/dL Normal 06-19-2020 [facility] (58820) Comment: Order Comment: Specimen Type : BLOOD SPECIMEN Performed By: #### 07499-0 # ###[place] [facility] LABORATORYCLIA [id number] [facility] [place] [address] Sodium [Moles/Vol] 137 136-144 mmol/L Normal 06-19-2020 [facility] (93310) Comment: Order Comment: Specimen Type : BLOOD SPECIMEN Performed By: #### 03134-6 # ###[employer] [facility] LABORATORYCLIA [id number] [facility] [place] [address] Urea nitrogen [Mass/Vol] 14 7-21 mg/dL Normal 06-19 [facility] (38714) Comment: Order Comment: Specimen Type : BLOOD SPECIMEN Performed By: #### 39545-7 # ###[facility]ATORYCLIA [id number] [facility] [place] [address] cbc w auto diff bld on 2020-06-19 Basophils (Bld) [#/Vol] 0.08 <0.11 k/uL Normal 2019 [facility] (00 000) Comment: Order Comment: Specimen Type : BLOOD SPECIMEN Performed By: #### 62893-7 # ###[facility]ATORYCLIA [id number] [facility] [place] [address] Basophils/100 WBC (Bld) 0.7 % Normal 2019 [facility] (21640) Comment: Order Comment: Specimen Type : BLOOD SPECIMEN Performed By: #### 39725-2 # ###[facility]ORATORYCLIA [id number] [facility] [place] [address] Differential cell count method Auto Normal 06-19-2020 [facility] (Bld[facility] (00 000) Comment: Order Comment: Specimen Type : BLOOD SPECIMEN Performed By: #### 23215-6 # ###[facility]ORATORYCLIA [id number] [facility] [place] [address] Eosinophils (Bld) [#/Vol] 0.71 <0.46 k/uL High [facility] (00 000) Comment: Order Comment: Specimen Type : BLOOD SPECIMEN Performed By: #### 59746-1 # ###[facility]ORATORYCLIA [id number] [facility] [place] [place] [address] Eosinophils/100 WBC (Bld) 6.0 % Normal [facility] (61573) Comment: Order Comment: Specimen Type : BLOOD SPECIMEN Performed By: #### 45681-8 # ###[facility]ORATORYCLIA [id number] [facility] [place] [place] [address] Erythrocyte distribution 13.3 11.5-15.0 % Normal 06-19 [facility] (RBC) [Ratio] Center (75034) Comment: Order Comment: Specimen Type : BLOOD SPECIMEN Performed By: #### 98784-8 # ###[facility]ORATORYCLIA [id number] [facility] [place] [address] Hematocrit (Bld) [Volume 37.8 36.0-46.0 % Normal 06-19 [facility]] Center (00 000) Comment: Order Comment: Specimen Type : BLOOD SPECIMEN Performed By: #### 00984-2 # ###[facility] LABORATORYCLIA [id number] [facility] [place] [address] Hemoglobin (Bld) 12.1 11.5-15.5 g/dL Normal 06-19-2020 [facility] [Mass/Vol] [place] (0 0000) Comment: Order Comment: Specimen Type : BLOOD SPECIMEN Performed By: #### 02976-1 # ###[facility] LABORATORYCLIA [id number] [facility] [place] [place] [address] IMMATURE GRAN % 1.5 % Normal 06-19-2020 [facility] (56264) Comment: Order Comment: Specimen Type : BLOOD SPECIMEN Performed By: #### 52487-0 # ###[facility] LABORATORYCLIA [id number] [facility] [place] [place] [address] IMMATURE GRAN ABS 0.18 <0.10 k/uL High 06-19-2020 [facility] (34435) Comment: Order Comment: Specimen Type : BLOOD SPECIMEN Result Comment: Differential confirmed by visual scan of peripheral blood smear slide Performed By: #### 42219-3 # ###[facility] LABORATORYCLIA [id number] [facility] [place] [place] [address] Lymphocytes (Bld) [#/Vol] 4.79 1.00-4.00 k/uL High [facility] (00 000) Comment: Order Comment: Specimen Type : BLOOD SPECIMEN Performed By: #### 63020-4 # ###[facility]ORATORYCLIA [id number] [facility] [place] [address] Lymphocytes/100 WBC (Bld) 40.6 % Normal [facility] (56594) Comment: Order Comment: Specimen Type : BLOOD SPECIMEN Performed By: #### 31788-1 # ###[facility]ORATORYCLIA [id number] [facility] [place] [place] [address] MCH (RBC) [Entitic mass] 28.6 26.0-34.0 pg Normal 06-19 [facility] () Comment: Order Comment: Specimen Type : BLOOD SPECIMEN Performed By: #### 48473-1 # ###[facility]ORATORYCLIA [id number] [facility] [place] [address] MCHC (RBC) [Mass/Vol] 32.0 30.5-36.0 g/dL Normal 06-19-20 [facility] () Comment: Order Comment: Specimen Type : BLOOD SPECIMEN Performed By: #### 27527-3 # ###[facility]ORATORYCLIA [id number] [facility] [place] [address] MCV (RBC) [Entitic vol] 89.4 80.0-100.0 fL Normal 06-19 [facility] () Comment: Order Comment: Specimen Type : BLOOD SPECIMEN Performed By: #### 76798-1 # ###[facility]ORATORYCLIA [id number] [facility] [place] [address] Monocytes (Bld) [#/Vol] 0.53 <0.87 k/uL Normal 2019 [facility] () Comment: Order Comment: Specimen Type : BLOOD SPECIMEN Performed By: #### 10505-0 # ###[facility]ORATORYCLIA [id number] [facility] [place] [address] Monocytes/100 WBC (Bld) 4.5 % Normal 2019 [facility] (86629) Comment: Order Comment: Specimen Type : BLOOD SPECIMEN Performed By: #### 29974-2 # ###[facility]ORATORYCLIA [id number] [facility] [place] [place] [address] Neutrophils (Bld) [#/Vol] 5.51 1.45-7.50 k/uL Normal [facility] () Comment: Order Comment: Specimen Type : BLOOD SPECIMEN Performed By: #### 63702-0 # ###[facility]ORATORYCLIA [id number] [facility] [place] [place] [address] Neutrophils/100 WBC (Bld) 46.7 % Normal [facility] (34627) Comment: Order Comment: Specimen Type : BLOOD SPECIMEN Performed By: #### 44855-2 # ###[facility]ORATORYCLIA [id number] [facility] [place] [address] Nucleated RBC (Bld) <0.01 <0.01 10*3/uL Normal 06-19-2020 [facility] [#/Vol] [place] (00 000) Comment: Order Comment: Specimen Type : BLOOD SPECIMEN Performed By: #### 41657-5 # ###[facility]ORATORYCLIA [id number] [facility] [place] [address] Nucleated RBC/100 WBC 0.0 0.0 /100 WBC Normal 06-19-20 [facility] (Bld) [Ratio] [place] ([address]) Comment: Order Comment: Specimen Type : BLOOD SPECIMEN Performed By: #### 89363-0 # ###[facility]ORATORYCLIA [id number] [facility] [place] [address] Platelet mean volume (Bld) 10.4 9.0-12.7 fL Normal [facility] [Entitic vol] [place] ([address]) Comment: Order Comment: Specimen Type : BLOOD SPECIMEN Performed By: #### 10756-8 # ###[facility]ORATORYCLIA [id number] [facility] [place] [address] Platelets (Bld) [#/Vol] 324 150-400 k/uL Normal 2019 [facility] (00 000) Comment: Order Comment: Specimen Type : BLOOD SPECIMEN Performed By: #### 63327-9 # ###[facility]ORATORYCLIA [id number] [facility] [place] [place] [address] RBC (Bld) [#/Vol] 4.23 3.90-5.20 m/uL Normal 06-19-2020 [facility] (49991) Comment: Order Comment: Specimen Type : BLOOD SPECIMEN Performed By: #### 79360-4 # ###[facility]ORATORYCLIA [id number] [facility] [place] [place] [address] RED CELL MORPH Normal Normal 06-19-2020 [facility] (21598) Comment: Order Comment: Specimen Type : BLOOD SPECIMEN Performed By: #### 21665-4 # ###[facility] LABORATORYCLIA [id number] [facility] [address] WBC (Bld) [#/Vol] 11.80 3.70-11.00 k/uL High 06-19-2020 [facility] (29316) Comment: Order Comment: Specimen Type : BLOOD SPECIMEN Performed By: #### 16059-9 # ###[facility] LABORATORYCLIA [id number] [facility] [address] cnpn on 2020-06-15 CNPN Telephone (AGGENS6) Normal 06-15-2020 [facility] SALLY MCGREGOR (601288) 1980 F Medical Date Time Provider Department Center 06/15/20 TATY PEREA (DIRECTOR OF PHOTOGRAPHY, OVERHEAD FOREMAN) AGGENS6 (26592) During your visit today, we recorded the following informati on about you: Taty Perea APRN.OVERHEAD FOREMAN 06/15/2020 11:28 AM Signed Patient called the [...] She refuses to go to [facility] ER to be seen because they treat her poorly. I will send an RX to her pharmacy for an antibiotic. She is to notify the office if her symptoms worsen or do not improve. Taty Perea APRN, OVERHEAD FOREMAN Allergies As of Date: 06/15/2020 Noted Allergy [...] 06/15/20 progress on 2020-05 PROGRESS HNO ID: [id number] Normal 06-13-2020 [facility] Author: Kimmie Jennings General Service: General Surgery Medical Author Type: Resident Center Type: Progress Notes (30124) Filed: 06/13/2020 6:55 AM Note Text: Attestation signed by Mala Almendarez at 06/18/2020 1:28 PM I saw and evaluated the patient. Discussed with the reside nt and agree with resident's findings and plan as documented in the resident's note. [facility] Progress Note SERVICE DATE: 06/13/2020 [facility] Service Pager: For questions or concerns Mon-Fri 6a-5p please page [phone]. After 5pm and on Weekends and Holidays, please page [phone]. SUBJECTIVE: Patient stayed overnight due to uncontrolled [...] 0659 06/13/20 07 - 06/14/20 0659 Shift 2805-7871 5239-8363 7364-4951 24 Hour Total 2475-9103 9798-4734 6349-5154 24 Hour Total INTAKE PO 240 200 [...] questions or concerns Mon-Thu 6a-5p please page [phone]. After 5pm and on Weekends and Holidays, please page [phone] if in ICU or [phone] if on RNF. PROGRESS HNO ID: [id number] Normal 06-13-2020 [facility] Author: Mer (Rn) VIN Bejarano General Service: [...] plan of care on PLAN HNO ID: [id number] Normal 06-13-2020 [place] OF Author: Aureliano Dietz DO General CARE [...] Phosphate [Mass/Vol] 3.9 2.7-4.8 mg/dL Normal 0 [facility] (51053) Comment: Performed By: #### URIN2 ### # [facility] [address] [place] [address] mdrd gfr on 2020-05 GFR/1.73 sq M >60 >60mL/min/1.73m2 mL/min/{1.73_m2} Normal [facility] non-blacks MDRD (000 00) (S/P/Bld) [Vol rate/Area] Comment: Result Comment: If the patie nt is , multiply the result by 1.210. Performed By: #### GFR #### [address] [address] magnesium blood on 2020-06-13 Magnesium [Mass/Vol] 2.1 1.7-2.3 mg/dL Normal 0 [facility] (69968) Comment: Performed By: #### URIN2 ### # [address] [address] hemogram on 2020-05 Erythrocyte distribution 13.4 11.7-14.4 % Normal 06-13 [facility] width (RBC) [Ratio] System (18453) Comment: Performed By: #### URIN2 ### # [facility] [address] [place], [place] [address] Hematocrit (Bld) [Volume 37.9 34.1-44.9 % Normal 06-13 [facility] fraction] System (00 000) Comment: Performed By: #### URIN2 ### # [address] [address] Hemoglobin (Bld) 12.1 11.2-15.7 g/dL Normal 06-13-2020 [facility] [Mass/Vol] System (0 0000) Comment: Performed By: #### URIN2 ### # [facility] [address] [place], [place] [address] MCH (RBC) [Entitic mass] 28.9 25.6-32.2 pg Normal 06-13 [facility] (00 000) Comment: Performed By: #### URIN2 ### # [facility] [address] [place], [place] [address] MCHC (RBC) [Mass/Vol] 31.9 31.6-34.8 % Normal 06-13-20 20 [facility] (63933) Comment: Performed By: #### URIN2 ### # [facility] [address] [place], [place] [address] MCV (RBC) [Entitic vol] 90.7 79.4-94.8 fl Normal 2019 [facility] (00 000) Comment: Performed By: #### URIN2 ### # [facility] [address] [place], [place] [address] Platelet mean volume (Bld) 10.9 9.4-12.3 fl Normal [facility] [Entitic vol] System (81982) Comment: Performed By: #### URIN2 ### # [facility] [address] [place], [place] [address] Platelets (Bld) [#/Vol] 236 182-369 thou/cmm Normal 2019 [facility] (00 000) Comment: Performed By: #### URIN2 ### # [facility] [address] [place], [place] [address] RBC (Bld) [#/Vol] 4.18 3.93-5.22 mil/cmm Normal 06-13-2020 [employer] [facility] (00 000) Comment: Performed By: #### URIN2 ### # [facility] [address] [place], [place] [address] RDW SD 44.2 36.4-46.3 fl Normal 06-13-2020 [facility] (36378) Comment: Performed By: #### URIN2 ### # [facility] [address] [place], [place] [address] WBC (Bld) [#/Vol] 7.45 3.98-10.04 thou/cmm Normal 06-13-2020 [facility] (00 000) Comment: Performed By: #### URIN2 ### # [facility] [address] [place] [address] comprehensive metabolic panel on 2020-06-13 Albumin [Mass/Vol] 4.1 3.9-4.9 g/dL Normal 06-13-2020 [facility] (87130) Comment: Performed By: #### URIN2 ### # [facility] [address] [place] [address] ALP [Catalytic activity/Vol] 98 34-123 U/L Normal 0 06-13-2020 [facility] (00 000) Comment: Performed By: #### URIN2 ### # [facility] [address] [place] [address] ALT [Catalytic activity/Vol] 73 7-38 U/L High 0 06-13-2020 [facility] (68634) Comment: Performed By: #### URIN2 ### # [facility] [address] [place] [address] Anion gap [Moles/Vol] 10 9-18 mmol/L Normal 06-13-20 20 [facility] (46709) Comment: Performed By: #### URIN2 ### # [facility] [address] [place] [address] AST [Catalytic activity/Vol] 69 13-35 U/L High 0 06-13-2020 [facility] (19119) Comment: Performed By: #### URIN2 ### # [facility] [address] [place] [id number] Bilirubin [Mass/Vol] 0.6 0.2-1.3 mg/dL Normal 0 [facility] (72299) Comment: Performed By: #### URIN2 ### # [facility] [address] [place] [id number] Calcium [Mass/Vol] 9.1 8.5-10.2 mg/dL Normal 06-13-2020 [facility] (67922) Comment: Performed By: #### URIN2 ### # [facility] [address] [place], [place] [address] Chloride [Moles/Vol] 101 97-105 mmol/L Normal 0 [facility] (39544) Comment: Performed By: #### URIN2 ### # [facility] [address] [place], [place] [address] CO2 Blood 27 22-30 mmol/L Normal 06-13-2020 [facility] (97917) Comment: Performed By: #### URIN2 ### # [facility] [address] [place], [place] [address] Creatinine [Mass/Vol] 0.87 0.58-0.96 mg/dL Normal 06-13-20 [facility] (00 000) Comment: Performed By: #### URIN2 ### # [facility] [address] [place], [place] [address] Glucose [Mass/Vol] 94 74-99 mg/dL Normal 06-13-2020 [facility] (36312) Comment: Result Comment: The [place] Diabetes Association (ADA) provides guidance for cutoff [...] Standards of Medical Care in Diabetes 2016; [place] Diabetes Association. Diabetes Care. 2016;39(Suppl 1). Performed By: #### URIN2 ### # [facility] [address] [place], [place] [address] Potassium [Moles/Vol] 3.8 3.7-5.1 mmol/L Normal 06-13-20 [facility] (00 000) Comment: Performed By: #### URIN2 ### # [facility] [address] [place], [place] [address] Protein [Mass/Vol] 7.3 6.3-8.0 g/dL Normal 06-13-2020 [facility] ([address]563) Comment: Performed By: #### URIN2 ### # [facility] [address] [place], [place] [address] Sodium [Moles/Vol] 138 136-144 mmol/L Normal 06-13-2020 [facility] (71224) Comment: Performed By: #### URIN2 ### # [facility] [address] [place], [place] [address] Urea nitrogen [Mass/Vol] 7 7-21 mg/dL Normal 06-13 [facility] (32118) Comment: Performed By: #### URIN2 ### # [facility] [address] [place], [place] [address] case managem on CASE MANAGEM HNO ID: [id number] Normal 06-13-20 [facility] Author: Britni PickardRn) VIN Grimaldo [facility] Service: Care Management (59926) Author Type: Registered Nurse Type: Care Mgt [...] Name/Phone: Floor RN TRANSPORTATION ARRANGEMENTS: Transportation Arrangements: [employer] (through [employer]) [place] [employer]: [phone] Trip #: [id number] Needs Prior to Discharge: Ready for Discharge Chart reviewed. Discharge held yesterday due to uncontrolled pain. Spoke with patient. Plan is for discharge today. Awaiting di awarfausto orders. Discharge disposition= Home with follow up care. SIGNATURE: Britni Grimaldo RN PATIENT NAME: Sally james DATE: June 13, 2020 TIME: 11:00 AM PAGER/CONTACT #: [phone] progress on 2020-05 PROGRESS HNO ID: [id number] Normal 06-12-2020 [place] Author: Nancy Abebe [facility] Service: General Surgery Medical Author Type: Resident Center Type: Progress Notes ([id number]) Filed: 06/12/2020 7:57 AM Note Text: Attestation signed by Mala Almendarez at 06/12/2020 9:28 PM Attending Note I personally saw and examined the patient. I reviewed the resident's note. I agree with the resident's assessment and plan with the maureen strong revisions and/or additions: Still with severe pain. Will hold DC today and poss dc [facility] Signature: Mala Almendarez MD Date: 06/12/2020 Time: 9:28 PM [facility] Progress Note SERVICE DATE: 06/12/2020 [facility] Service Pager: For questions or concerns Mon-Fri 6a-5p please page [phone]. After 5pm and on Weekends and Holidays, please page [phone]. SUBJECTIVE: C/o significant pain that prevents her [...] 06/11/20699 - 06/12/2065806/12/20699 - 06/13/20 0659 Shift 1184-0337 2761-0520 6802-6796 24 Hour Total 5669-1224 8912-0357 1943-8042 24 Hour Total INTAKE PO 100 100 PO 100 100 IV 1900 1900 OR Crystalloid intake (mL) 1000 1000 Volume (mL) (lactated ringers infusion) 900 900 Shift Total 2673 836 9487 OUTPUT Urine 691 706 4389 Void (ml) 600 600 OR Urine Output 500 500 Urine Not Saved. 1 x 3 x 4 x Blood 50 50 Estimated Blood loss 50 50 Shift Total 906 777 1476 Weight (kg) 89.6 89.6 89.6 89.6 89.6 [...] care on PLAN OF CARE HNO ID: [id number] Normal 06-12-20 [facility] Author: Page Burgess (Go Cart Mechanic) [place] ([address]) Service: Pharmacy Author Type: Pharmacist Type: Plan [...] from Discharge Medication Li st. Page Burgess, Go Cart Mechanic June 12, 2020 10:36 AM Medication List [...] Your Medications These medications were sent to [facility] [place] [facility] [address] [place] [address] Hours: Thursday-Thursday, 8am-6:30pm ? oxyCODONE IR 5 mg immediate release tablet phosphorous blood o n 2020-06-12 Phosphate [Mass/Vol] 3.4 2.7-4.8 mg/dL Normal 0 [facility] (16667) Comment: Performed By: #### CBCD1 ### # [place] [address] magnesium blood on 2020-06-12 Magnesium [Mass/Vol] 1.5 1.7-2.3 mg/dL Low 0 [facility] ([address]884) Comment: Performed By: #### CBCD1 ### # [place] [address] hemogram on 2020-05 Erythrocyte distribution 13.2 11.7-14.4 % Normal 06-12 [facility] width (RBC) [Ratio] System (83610) Comment: Performed By: #### CBCD1 ### # [place] [address] Hematocrit (Bld) [Volume 32.9 34.1-44.9 % Low 06-12 [facility] fraction] System (00 000) Comment: Performed By: #### CBCD1 ### # [place] [address] Hemoglobin (Bld) [Mass/Vol] 10.5 11.2-15.7 g/dL Low [facility] (00 000) Comment: Performed By: #### CBCD1 ### # [place] [address] MCH (RBC) [Entitic mass] 29.2 25.6-32.2 pg Normal 06-12 [facility] (00 000) Comment: Performed By: #### CBCD1 ### # [address], [place] [address] MCHC (RBC) [Mass/Vol] 31.9 31.6-34.8 % Normal 06-12-20 20 [facility] ([address]442) Comment: Performed By: #### CBCD1 ### # [facility] [address] [place], [place] [address] MCV (RBC) [Entitic vol] 91.4 79.4-94.8 fl Normal 2019 [facility] (00 000) Comment: Performed By: #### CBCD1 ### # [facility] [address] [place] [id number] Platelet mean volume (Bld) 11.5 9.4-12.3 fl Normal [facility] [Entitic vol] System (79670) Comment: Performed By: #### CBCD1 ### # [facility] [address] [place], [place] [address] Platelets (Bld) [#/Vol] 182 182-369 thou/cmm Normal 2019 [facility] (00 000) Comment: Performed By: #### CBCD1 ### # [facility] [address] [place], [place] [address] RBC (Bld) [#/Vol] 3.60 3.93-5.22 mil/cmm Low 06-12-2020 [facility] (89511) Comment: Performed By: #### CBCD1 ### # [facility] [address] [place], [place] [address] RDW SD 44.5 36.4-46.3 fl Normal 06-12-2020 [facility] (72798) Comment: Performed By: #### CBCD1 ### # [facility] [address] [place], [place] [address] WBC (Bld) [#/Vol] 7.04 3.98-10.04 thou/cmm Normal 06-12-2020 [facility] (00 000) Comment: Performed By: #### CBCD1 ### # [facility] [address] [place], [place] [address] case managem on 202 CASE MANAGEM HNO ID: [id number] Normal 06-12-20 [facility] Author: Britni (Rn) VIN [facility] Service: Care Management (15851) Author Type: Registered Nurse Type: Care Mgt [...] 12, 2020 TIME: 9:18 AM PAGER/CONTACT #: [phone] basic metabolic panel on 2020-06-12 Anion gap [Moles/Vol] 8 9-18 mmol/L Low 06-12-20 20 [facility] (77553) Comment: Performed By: #### CBCD1 ### # [facility] [address] [place], [place] [address] Calcium [Mass/Vol] 8.0 8.5-10.2 mg/dL Low 06-12-2020 [facility] (13764) Comment: Performed By: #### CBCD1 ### # [facility] [address] [place], [place] [address] Chloride [Moles/Vol] 104 97-105 mmol/L Normal 0 [facility] (48907) Comment: Performed By: #### CBCD1 ### # [facility] [address] [place], [place] [address] CO2 Blood 26 22-30 mmol/L Normal 06-12-2020 [facility] (46521) Comment: Performed By: #### CBCD1 ### # [facility] [address] [place], [place] [address] Creatinine [Mass/Vol] 0.87 0.58-0.96 mg/dL Normal 06-12-20 [facility] (00 000) Comment: Performed By: #### CBCD1 ### # [facility] [address] [place], [place] [address] Glucose [Mass/Vol] 83 74-99 mg/dL Normal 06-12-2020 [facility] (67466) Comment: Result Comment: The [place] Diabetes Association (ADA) provides guidance for cutoff [...] Standards of Medical Care in Diabetes 2016; [place] [employer]. Diabetes Care. 2016;39(Suppl 1). Performed By: #### CBCD1 ### # [facility] [address] [place], [place] [address] Potassium [Moles/Vol] 3.4 3.7-5.1 mmol/L Low 06-12-20 20 [facility] (28738) Comment: Performed By: #### CBCD1 ### # [facility] [address] [place], [place] [address] Sodium [Moles/Vol] 138 136-144 mmol/L Normal 06-12-2020 [facility] (26924) Comment: Performed By: #### CBCD1 ### # [facility] [address] [place], [place] [address] Urea nitrogen [Mass/Vol] 6 7-21 mg/dL Low 06-12 [facility] (66058) Comment: Performed By: #### CBCD1 ### # [facility] [address] [place], [place] [address] type and screen on 2020-06-11 ABO group Nom (Bld) O Normal 06-11-2020 [facility] (82707) Comment: Performed By: #### CBCD1 ### # [place] [address] Comment See Below Normal 06-11-2020 [facility] (79273) Comment: Result Comment: Screen &/or Xmatch expires in 3 days at 12 midnight. Redraw patient at that time. Performed By: #### CBCD1 ### # [place] [address] RH Type Positive Normal 06-11-2020 [facility] (76185) Comment: Performed By: #### CBCD1 ### # [place] [address] surgical tissue exam on 2020-06-11 Surgical Tissue Exam Test performed at [facility] Normal 06-11-2020 [facility] [address] [place] [address] ([id number]) NAME: SALLY MCGREGOR REQUESTING: MALA ALMENDAREZ MD [...] are not see n on the specimen. Roving Frame Tender sections are submitted in formalin in 4 cassettes. LETICIA/chadd VILLASEÑOR M.D., PATHOLOGIST (Electronic signature on file) Signed out: 06/13/2020 16:48 PRINTED: 06/13/2020 Page 1 of 1 Comment: Performed By: #### URIN2 ### # [place] [address] progress on 2020-05 PROGRESS HNO ID: [id number] Normal 06-11-2020 [place] Author: Kimmie Topetem General Service: General Surgery Medical Author Type: Resident Center Type: Progress Notes ([id number]) Filed: 06/11/2020 7:03 AM Note Text: Attestation [...] questions or concerns Mon-Fri 6a-5p please page [phone]. After 5pm and on Weekends and Holidays, please page [phone]. SUBJECTIVE: NAEON. Afebrile. Patient resting in bed [...] - 06/11/20 0606/11/20699 - 06/12/20 0659 Shift 2077-8953 7273-2926 8864-5010 24 Hour Total 3382-0203 4999-9276 2607-4314 24 Hour Total INTAKE PO 600 600 [...] questions or concerns Thu-Thu 6a-5p please page [phone]. After 5pm and on Weekends and Holidays, please page [phone] if in ICU or [phone] if on RNF. operative no on 202 OPERATIVE NO HNO ID: [id number] Normal 06-11-20 [facility] Author: Mala Eddy [facility] Service: General Surgery ([id number]) Author Type: Physician Type: Operative Report Filed: 06/11/2020 1:39 PM Note Text: [facility] - Operative Report SALLY MCGREGOR : 1980 AGE: 39. SEX: F PATIENT TYPE: I HOSP SVC: GENS LOCATION: [facility] ATTENDING PHYSICIAN: MALA ALMENDAREZ CSN NUMBER: [id number] DATE OF SURGERY/PROCEDURE: 06/11/2020 INCISION/PROCEDURE START TIME: 10:51 AM INCISION CLOSE/PROCEDURE END TIME: 11:47 AM PREOPERATIVE DIAGNOSIS: Symptomatic liver cyst. POSTOPERATIVE DIAGNOSIS: Symptomatic liver cyst. SURGEON: Mala Almendarez MD BUCKET TURNER: None. SURGERY/PROCEDURE: Laparoscopic partial right hepatic lobect [...] CLASS: 2, clean, contaminated. Mala Almendarez MD NSA:[id number] /[id number] nursing prog on NURSING PROG HNO ID: [id number] Normal 06-11-20 20 [facility] Author: Garo PickardRnJoao Jackson RN [facility] Service: ? ([id number]) Author Type: Registered Nurse Type: Nursing Progress Note Filed: 06/11/2020 6:25 PM Note Text: Nursing Progress Note Patient Name: Sally Mcgregor Patient Location: [place] [id number]- Patient refusing IV fluids, states we can restart them when she goes to bed. Informed surgery team. This note was completed by: Garo Jackson RN hemogram on 2020-05 Erythrocyte distribution 13.0 11.7-14.4 % Normal 06-11 [facility] width (RBC) [Ratio] System (33852) Comment: Performed By: #### CBCD1 ### # [facility] [address] [place] [id number] Hematocrit (Bld) [Volume 35.0 34.1-44.9 % Normal 06-11 [facility] fraction] System (00 000) Comment: Performed By: #### CBCD1 ### # [facility] [address] [place], [place] [address] Hemoglobin (Bld) 11.4 11.2-15.7 g/dL Normal 06-11-2020 [facility] [Mass/Vol] System (0 0000) Comment: Performed By: #### CBCD1 ### # [facility] [address] [place], [place] [address] MCH (RBC) [Entitic mass] 29.2 25.6-32.2 pg Normal 06-11 [facility] (00 000) Comment: Performed By: #### CBCD1 ### # [facility] [address] [place], [place] [address] MCHC (RBC) [Mass/Vol] 32.6 31.6-34.8 % Normal 06-11-20 20 [facility] (47460) Comment: Performed By: #### CBCD1 ### # [facility] [address] [place], [place] [address] MCV (RBC) [Entitic vol] 89.5 79.4-94.8 fl Normal 2019 [facility] (00 000) Comment: Performed By: #### CBCD1 ### # [facility] [address] [place], [place] [address] Platelet mean volume (Bld) 11.1 9.4-12.3 fl Normal [facility] [Entitic vol] System (42630) Comment: Performed By: #### CBCD1 ### # [facility] [address] [place], [place] [address] Platelets (Bld) [#/Vol] 229 182-369 thou/cmm Normal 2019 [facility] (00 000) Comment: Performed By: #### CBCD1 ### # [facility] [address] [place], [place] [address] RBC (Bld) [#/Vol] 3.91 3.93-5.22 mil/cmm Low 06-11-2020 Front Desk HQ adi [facility] [employer] [facility] (98547) Comment: Performed By: #### CBCD1 ### # [facility] [address] [place], [place] [address] RDW SD 42.5 36.4-46.3 fl Normal 06-11-2020 [facility] (11581) Comment: Performed By: #### CBCD1 ### # [facility] [address] [place], [place] [address] WBC (Bld) [#/Vol] 6.54 3.98-10.04 thou/cmm Normal 06-11-2020 [facility] (00 000) Comment: Performed By: #### CBCD1 ### # [facility] [address] [place], [place] [address] case managem on CASE MANAGEM HNO ID: [id number] Normal 06-11-20 [facility] Author: Britni PickardRn) VIN Grimaldo [facility] Service: Care Management ([id number]) Author Type: Registered Nurse Type: Care Mgt [...] 11, 2020 TIME: 9:10 AM PAGER/CONTACT #: [phone] anes preop on 06-11 ANES PREOP HNO ID: [id number] Normal 06-11-2020 [facility] Service: Anesthesiology ([id number]) Author Type: Physician Type: Anesthesia PreOp Filed: [...] Benign liver cyst 05/24/2010 CT scan at [facility] 11/2009 and 04/2010 showe 4 mm increase in size . No pain. No elevated LFTs on 03/11/2010. - Calculus of kidney 05/17/[address] Nicolas: Hospitalized age 20, and again later -- no procedures so far ([facility], most, 1995 [facility]) - Cancer (HCC) - Diverticulosis - [...] Approx. 3 cigarettes daily-1 pack every w [facility] Substance Use Topics - Alcohol use: Yes [...] INTRAVENOUS q 3 H PRN Nigel (Res) [place] 1 mg at 06/11/20 0536 - [MAR Hold due to Transfer] NaCl 0.9% iv infusion 125 mL/hr INTRAVENOUS CONTINUOUS Nigel (Res) [place] 125 mL/hr at 06/10/20 2248 1 25 [...] June 11, 2020 TIME: 9:49 AM CSN: [id number] anes post on 06-11 ANES POST HNO ID: [id number] Normal 06-11-2020 [facility] Author: Edwin Sesay [place] ([id number]) Service: Anesthesiology Author Type: Physician Type: Anesthesia [...] #: progress on 2020-05 PROGRESS HNO ID: [id number] Normal 06-10-2020 [facility] Author: Mer PickardRnJoao Bejarano RN [place] ([id number]) Service: Nursing Author Type: Registered Nurse Type: [...] resident Kimmie was notified. PROGRESS HNO ID: [id number] Normal 06-10-2020 [facility] Author: Kimmie Jennings [place] ([id number]) Service: General Surgery Author Type: Resident Type: [...] questions or concerns Mon-Fri 6a-5p please page [phone]. After 5pm and on Weekends and Holidays, please page [phone]. SUBJECTIVE: NAEON. Afebrile. Patient resting in bed [...] 0659 06/10/20 0700 - 06/11/20 0659 Shift 4467-7727 9191-2751 8523-0371 24 Hour Total 5778-8811 8050-5257 4928-5625 24 Hour Total INTAKE PO 187 785 0234 PO 345 318 9434 Shift Total 043 134 3374 OUTPUT Urine Urine Not Saved. 2 x [...] questions or concerns Thu-Thu 6a-5p please page [phone]. After 5pm and on Weekends and Holidays, please page [phone] if in ICU or [phone] if on RNF. PROGRESS HNO ID: [id number] Normal 06-10-2020 [facility] Medical Author: Mer PickardRnJoao Bejarano RN [place] ([id number]) Service: Nursing Author Type: Registered Nurse Type: [...] Phosphate [Mass/Vol] 4.2 2.7-4.8 mg/dL Normal 0 [facility] (25248) Comment: Performed By: #### CBCD1 ### # [address] [address] magnesium blood on 2020-06-10 Magnesium [Mass/Vol] 1.8 1.7-2.3 mg/dL Normal 0 [facility] (39042) Comment: Performed By: #### CBCD1 ### # [address] [address] coronavirus 2019 on 2020-06-10 COVID 19 Result DOBBY LOOMS PEGGER Negative CORNEG Normal 06-10-2020 [facility] (93401) Comment: Result Comment: Negative for COVID19 (SARS CoV2) by PCR. This test was developed and its performance characteristics determined by [facility]'s Johnnie Abreu Pathology and Laboratory Medicine [place]. This test has bee n authorized by [...] issued on November 12, 2019. Performing Laboratory: [facility] [address] [place] [address] Performed By: #### CBCD1 ### # [address] [address] basic metabolic panel on 2020-06-10 Anion gap [Moles/Vol] 10 9-18 mmol/L Normal 06-10-20 20 [facility] (22719) Comment: Performed By: #### CBCD1 ### # [address] [address] Calcium [Mass/Vol] 9.2 8.5-10.2 mg/dL Normal 06-10-2020 [facility] (12119) Comment: Performed By: #### CBCD1 ### # [facility] [address] [place], [place] [address] Chloride [Moles/Vol] 102 97-105 mmol/L Normal 0 [facility] (70045) Comment: Performed By: #### CBCD1 ### # [facility] [address] [place], [place] [address] CO2 Blood 27 22-30 mmol/L Normal 06-10-2020 [facility] (84066) Comment: Performed By: #### CBCD1 ### # [facility] [address] [place], [place] [address] Creatinine [Mass/Vol] 0.90 0.58-0.96 mg/dL Normal 06-10-20 20 [facility] (00 000) Comment: Performed By: #### CBCD1 ### # [facility] [address] [place], [place] [address] Glucose [Mass/Vol] 105 74-99 mg/dL High 06-10-2020 [facility] (32999) Comment: Result Comment: The [place] Diabetes Association (ADA) provides guidance for cutoff [...] Standards of Medical Care in Diabetes 2016; [place] Diabetes Association. Diabetes Care. 2016;39(Suppl 1). Performed By: #### CBCD1 ### # [facility] [address] [place], [place] [address] Potassium [Moles/Vol] 3.7 3.7-5.1 mmol/L Normal 06-10-20 [facility] (00 000) Comment: Performed By: #### CBCD1 ### # [facility] [address] [place], [place] [address] Sodium [Moles/Vol] 139 136-144 mmol/L Normal 06-10-2020 [facility] (29168) Comment: Performed By: #### CBCD1 ### # [facility] [address] [place], [place] [address] Urea nitrogen [Mass/Vol] 8 7-21 mg/dL Normal 06-10 [facility] (27120) Comment: Performed By: #### CBCD1 ### # [facility] [address] [place] [id number] allied health on 03-06-27 ALLIED HNO ID: [id number] Normal 06-10-2020 [facility] Author: Chaplain Suarez (Chaplain) General Service: Spiritual Care Medical Author Type: Contracting Analyst Center Type: [facility] ([id number]) Filed: 06/10/2020 7:39 PM Note Text: SPIRITUALCARE Spiritual Care Visit- Brief Note Name: Sally Mcgregor Date: June 10, 2020 Notes: Pre-surgery Patient Nothing needed tonight. Contracting Analyst Signature: Chaplain Erick To contact the Spiritual Care Department: Please call [phone] or Page the On-Call Contracting Analyst at cwg ts [phone] Thank you for the opportunity to be of service. This is an electronically created document. IF PRINTED, PLEASE DO NOT REMOVE FROM THE CHART OR MODIFY NV INTED COPY. progress on 2020-05 PROGRESS HNO ID: [id number] Normal 06-09-2020 [place] Author: Kimmie Jennings General Service: General Surgery Medical Author Type: Resident Center Type: Progress Notes ([id number]) Filed: 06/09/2020 7:14 AM Note Text: Attestation [...] questions or concerns Thu-Thu 6a-5p please page [phone]. After 5pm and on Weekends and Holidays, please page [phone]. SUBJECTIVE: NAEON. Afebrile. Patient resting in bed [...] - 06/09/20 0606/09/20699 - 06/10/20 0659 Shift 9426-5609 4308-0080 0110-9700 24 Hour Total 1601-7803 8806-9869 0064-3780 24 Hour Total INTAKE Shift Total OUTPUT [...] (TYLENOL) 975 mg ORAL q 6 H NV N - oxyCODONE IR 5-10 mg tab(s) [...] in ICU or 2178 if on RNF. hemogram on 2020-05 Erythrocyte distribution 13.2 11.7-14.4 % Normal 06-09 [facility] width (RBC) [Ratio] System (44681) Comment: Performed By: #### GFR #### [address] [address] Hematocrit (Bld) [Volume 33.7 34.1-44.9 % Low 06-09 [facility]] System (00 000) Comment: Performed By: #### GFR #### [facility] [address] [place], [place] [address] Hemoglobin (Bld) [Mass/Vol] 10.6 11.2-15.7 g/dL Low [facility] (00 000) Comment: Performed By: #### GFR #### [place] [address] MCH (RBC) [Entitic mass] 28.8 25.6-32.2 pg Normal 06-09 [facility] (00 000) Comment: Performed By: #### GFR #### [place] [address] MCHC (RBC) [Mass/Vol] 31.5 31.6-34.8 % Low 06-09-20 20 [facility] (85282) Comment: Performed By: #### GFR #### [place] [address] MCV (RBC) [Entitic vol] 91.6 79.4-94.8 fl Normal 2019 [facility] (00 000) Comment: Performed By: #### GFR #### [place] [address] Platelet mean volume (Bld) 11.6 9.4-12.3 fl Normal [facility] [Entitic vol] System (14885) Comment: Performed By: #### GFR #### [place] [id number] Platelets (Bld) [#/Vol] 199 182-369 thou/cmm Normal 2019 [facility] (00 000) Comment: Performed By: #### GFR #### [place] [address] RBC (Bld) [#/Vol] 3.68 3.93-5.22 mil/cmm Low 06-09-2020 [facility] (99242) Comment: Performed By: #### GFR #### [place] [address] RDW SD 43.9 36.4-46.3 fl Normal 06-09-2020 [facility] (57724) Comment: Performed By: #### GFR #### [facility] [address] [place], [place] [address] WBC (Bld) [#/Vol] 6.47 3.98-10.04 thou/cmm Normal 06-09-2020 [facility] (00 000) Comment: Performed By: #### GFR #### [facility] [address] [place], [place] [address] basic metabolic panel on 2020-06-09 Anion gap [Moles/Vol] 11 9-18 mmol/L Normal 06-09-20 20 [facility] (78871) Comment: Performed By: #### GFR #### [facility] [address] [place], [place] [address] Calcium [Mass/Vol] 8.8 8.5-10.2 mg/dL Normal 06-09-2020 [facility] (71349) Comment: Performed By: #### GFR #### [facility] [address] [place], [place] [address] Chloride [Moles/Vol] 106 97-105 mmol/L High 0 [facility] (47376) Comment: Performed By: #### GFR #### [facility] [address] [place], [place] [address] CO2 Blood 24 22-30 mmol/L Normal 06-09-2020 [facility] (67456) Comment: Performed By: #### GFR #### [facility] [address] [place], [place] [address] Creatinine [Mass/Vol] 0.82 0.58-0.96 mg/dL Normal 06-09-20 20 [facility] (00 000) Comment: Performed By: #### GFR #### [facility] [address] [place], [place] [address] Glucose [Mass/Vol] 84 74-99 mg/dL Normal 06-09-2020 [facility] (78742) Comment: Result Comment: The [place] Diabetes Association (ADA) provides guidance for cutoff [...] Standards of Medical Care in Diabetes 2016; [place] Diabetes Association. Diabetes Care. 2016;39(Suppl 1). Performed By: #### GFR #### [facility] [address] [place], [place] [address] Potassium [Moles/Vol] 3.8 3.7-5.1 mmol/L Normal 06-09-20 [facility] (00 000) Comment: Performed By: #### GFR #### [address] [address] Sodium [Moles/Vol] 141 136-144 mmol/L Normal 06-09-2020 [facility] (49469) Comment: Performed By: #### GFR #### [address] [address] Urea nitrogen [Mass/Vol] 9 7-21 mg/dL Normal 06-09 [facility] (64898) Comment: Performed By: #### GFR #### [address] [address] protime on INR Coag (PPP) [Relative 1.07 0.90-1.30 {INR} Normal 06-08 [facility] time] System (00 000) Comment: Result Comment: Vitamin K An tagonist (VKA) Therapeutic Range: INR 2 to 3 (Target INR of 2.5) Note: For patients treated w ith VKA drugs, such as warfarin, the [place] [employer] ys[employer] 2012 Guideline recommends a therapeutic INR range of 2 to 3 (target INR of 2.5). This recommendation includes high -risk patients with antiphospholipid syndrome with previous arter ial or venous thromboembolism, current-generation mechanica l or bioprosthetic aortic heart valve replacement. Note: Patients with mechanics supervisor al aortic valve replacement and additional risk factors for thromboembolic events (atrial fibrillation, previous throm boembolism, LV dysfunction, hypercoagulable conditions) or an older generation mechanical AVR (i.e., ball in-Cage) or any mechanical MVR should have a INR therapeutic range of 2 .5 to 3.5 target INR of 3). Magdalene GH, et al. Chest 2012 ; 141:7S-47S Calderon FERNÁNDEZ et al. [facility] 20 17; 70: 252-289 Performed By: #### GFR #### [facility] [address] [place], [place] [address] PT Coag (PPP) [Time] 11.1 9.7-13.0 sec Normal 0 [facility] (89406) Comment: Performed By: #### GFR #### [address] [address] phosphorous blood o n 2020-06-08 Phosphate [Mass/Vol] 3.3 2.7-4.8 mg/dL Normal 0 [facility] (39354) Comment: Performed By: #### GFR #### [address] [address] nursing prog on NURSING PROG HNO ID: [id number] Normal 06-08-20 20 [facility] Author: Garo Jackson RN [facility] Center Service: ? ([id number]) Author Type: Registered Nurse Type: Nursing Progress Note Filed: 06/08/2020 10:56 AM Note Text: Nursing Progress Note Patient Name: Sally Mcgregor Patient Location: [address]/[id number] Spoke with Doctor Dick regarding IV contrast allergy and th e need for steroid prep. This note was completed by: Garo Jackson RN mri panc/james wo/w ivcon on 2020-06-08 MRI PANC/JAMES WO/W Final Report Normal 0 [facility] IVCON DATE OF EXAM: Jun 08 2020 6:[address] [place] [address] - MRI PANC/JAMES WO/W IVCON / ([id number]) PROCEDURE REASON: Liver lesion, >1cm, US indeterminate, [...] x 8.0 cm . 2. Normal MRCP. Sign Writer Letterer Or Painter: PSCB Transcribe Date/Time: Jun 08 2020 7:48P Dictated by : ALICE ALCARAZ MD This examination was interpreted and the report reviewed and electronically signed by: ALICE ALCARAZ MD on Jun 08 2020 8:42PM EST mri 3d post processing on 2020-06-08 MRI 3D POST Final Report Normal 06-08-2020 Gabriela barboza General PROCESSING DATE [facility] EXAM: Jun 08 [facility] POST PROCESSING / (74093) PROCEDURE REASON: Abd pain, chronic, intermittent Physician [...] x 8.0 cm . 2. Normal MRCP. Sign Writer Letterer Or Painter: PSCAudrey Transcribe Date/Time: Jun 08 2020 7:48P Dictated by : ALICE ALCARAZ MD This examination was interpreted and the report reviewed and electronically signed by: ALICE ALCARAZ MD on Jun 08 2020 8:42PM EST magnesium blood on 2020-06-08 Magnesium [Mass/Vol] 2.0 1.7-2.3 mg/dL Normal 0 [facility] (54025) Comment: Performed By: #### LIP #### [place] [id number] lipase blood on Lipase Blood 31 16-61 U/L Normal 06-08-2020 [facility] (76032) Comment: Performed By: #### GFR #### [facility] [address] [place], [place] [address] history physical on 2020-06-08 HISTORY HNO ID: [id number] Normal 06-08-2020 [place] PHYSICAL Author: Chris Kurtz [facility] Service: General Surgery Medical Author Type: Resident Center Type: [facility] (59093) Filed: 06/08/2020 7:24 AM Note Text: Attestation signed by Mala Almendarez at 06/08/2020 7:09 PM Attending Note I personally saw and examined the patient. I reviewed the resident's note. I agree with the resident's assessment and plan with the [facility] wing revisions and/or additions: Admit for symptomatic hepatic cyst. Plan for cyst fenestrati on on Thursday. Signature: Mala Almendarez MD Date: 06/08/2020 Time: 7:09 PM HISTORY AND PHYSICAL EXAMINATION SERVICE DATE: 06/08/2020 SERVICE TIME: 7:12 AM Subjective CHIEF COMPLAINT: Abdominal Pain HPI: 39 year old female presents as a direct admission to [facility] with abdominal pain and a known history of hepatic cysts with rec urrent pancreatitis. Her last admission was for pancreatitis, in [facility] she had imaging showing increasing size [...] Benign liver cyst 05/24/2010 CT scan at [facility] 11/2009 and 04/2010 showe 4 mm increase in size . No pain. No elevated LFTs on 03/11/2010. - Calculus of kidney 05/17/[address] Nicolas: Hospitalized age 20, and again later -- no procedures so far ([facility], most, 1995 [facility]) - Cancer (HCC) - Diverticulosis - [...] ABDOM HYSTERECTOMY 08/31/06 Hysterectomy, [facility] FAMILY HISTORY Problem Relation Age [...] Approx. 3 cigarettes daily-1 pack every w [facility] Substance Use Topics - Alcohol use: Yes [...] the last 72 hours. Invalid input(s): [facility] Diagnostic tests reviewed for today's visit: [...] Albumin [Mass/Vol] 4.7 3.9-4.9 g/dL Normal 06-08-2020 [facility] (46774) Comment: Performed By: #### GFR #### [address] [address] ALP [Catalytic activity/Vol] 94 34-123 U/L Normal 0 06-08-2020 [facility] (00 000) Comment: Performed By: #### GFR #### [address] [address] ALT [Catalytic activity/Vol] 17 7-38 U/L Normal 0 06-08-2020 [facility] (00 000) Comment: Performed By: #### GFR #### [address] [address] AST [Catalytic activity/Vol] see below 13-35 Normal 0 06-08-2020 [facility] (00 000) Comment: Result Comment: Unable to as say. Specimen Hemolyzed Performed By: #### GFR #### [address] [address] Bilirubin [Mass/Vol] 0.3 0.2-1.3 mg/dL Normal 0 [employer] [facility] (25372) Comment: Performed By: #### GFR #### [facility] [address] [place], [place] [address] Bilirubin [Mass/Vol] see below 0.0-0.2 Normal 0 [facility] [employer] [facility] (00 000) Comment: Result Comment: Unable to as say. Specimen Hemolyzed Performed By: #### GFR #### [facility] [address] [place], [place] [address] Protein [Mass/Vol] 7.8 6.3-8.0 g/dL Normal 06-08-2020 [facility] (98611) Comment: Performed By: #### GFR #### [facility] [address] [place], [place] [address] hemogram on 2020-05 Erythrocyte distribution 13.3 11.7-14.4 % Normal 06-08 [facility] width (RBC) [Ratio] System (54361) Comment: Performed By: #### LIP #### [facility] [address] [place], [place] [address] Hematocrit (Bld) [Volume 38.1 34.1-44.9 % Normal 06-08 [place] [facility] fraction] System (00 000) Comment: Performed By: #### LIP #### [address] [address] Hemoglobin (Bld) 11.8 11.2-15.7 g/dL Normal 06-08-2020 [facility] [Mass/Vol] System (0 0000) Comment: Performed By: #### LIP #### [facility] [address] [place], [place] [address] MCH (RBC) [Entitic mass] 28.4 25.6-32.2 pg Normal 06-08 [facility] (00 000) Comment: Performed By: #### LIP #### [address] [address] MCHC (RBC) [Mass/Vol] 31.0 31.6-34.8 % Low 06-08-20 20 [facility] (65919) Comment: Performed By: #### LIP #### [facility] [address] [place], [place] [address] MCV (RBC) [Entitic vol] 91.8 79.4-94.8 fl Normal 2019 [facility] (00 000) Comment: Performed By: #### LIP #### [facility] [address] [place] [id number] Platelet mean volume (Bld) 11.6 9.4-12.3 fl Normal [facility] [Entitic vol] System (44191) Comment: Performed By: #### LIP #### [facility] [address] [place] [id number] Platelets (Bld) [#/Vol] 230 182-369 thou/cmm Normal 2019 [facility] (00 000) Comment: Performed By: #### LIP #### [facility] [address] [place] [id number] RBC (Bld) [#/Vol] 4.15 3.93-5.22 mil/cmm Normal 06-08-2020 [facility] (00 000) Comment: Performed By: #### LIP #### [facility] [address] [place] [id number] RDW SD 44.9 36.4-46.3 fl Normal 06-08-2020 [facility] (73825) Comment: Performed By: #### LIP #### [facility] [address] [place], [place] [address] WBC (Bld) [#/Vol] 7.30 3.98-10.04 thou/cmm Normal 06-08-2020 [facility] (00 000) Comment: Performed By: #### LIP #### [facility] [address] [place] [id number] case mgt init asses on 2020-06-08 CASE MGT INIT HNO ID: [id number] Normal 020 [facility] Author: Britni (Rn) [facility] Service: Care Management ([id number]) Author Type: Registered Nurse Type: Care Mgt Initial Assessment Filed: 06/08/2020 11:00 AM Note Text: CARE MANAGEMENT: ASSESSMENT AND DISCHARGE PLAN SERVICE DATE: June 08, 2020 SERVICE TIME: 10:50 AM PRIMARY CARE PHYSICIAN: Marcelino Mejia MD (Confirmed with patient) ADMISSION STATUS: Inpatient Needs Prior to Discharge: Pharmacy Bedside Delivery MEDICAL: [facility] MEDICAID Patient/Roving Frame Tender Stated Goals: To return home to life as it was Health Insurance: [facility] Issues Impacting Discharge Plan: Uncontrolled Uncontrolled: [...] completed Advance Directive: Current Advance Directive: None Warehouse General Laborer Attempted to Assist with AD Completion: Yes [...] Patient Currently Receive Any Community Services or [facility] Care?: None Equipment Prior to Admission: [...] Completely I feel financially burdened by my xqx-ik-faiiyb expenses for my prescription medication:: 0 - Disagree Completely Risk Score: 0 Patient is categorized as: Low risk < 2 Are you interested in bedside delivery of your medications? Yes Is Patient Psychosocially Complex?: No ASSESSMENT AND PLAN: Medical Needs: Medical Needs: Two or more chronic diseases Psychosocial Needs: Psychosocial Needs: None FREEDOM OF CHOICE EXPLAINED: [place] of Choice Given: No Reason Not Given: [...] 08, 2020 TIME: 10:50 AM PAGER/CONTACT #: [phone] basic metabolic panel on 2020-06-08 Anion gap [Moles/Vol] 11 9-18 mmol/L Normal 06-08-20 [facility] ([id number]) Comment: Performed By: #### LIP #### [address] [address] Calcium [Mass/Vol] 9.6 8.5-10.2 mg/dL Normal 06-08-2020 [facility] (35952) Comment: Performed By: #### LIP #### [address] [address] Chloride [Moles/Vol] 104 97-105 mmol/L Normal 0 [facility] (11117) Comment: Performed By: #### LIP #### [facility] [address] [place], [place] [address] CO2 Blood 25 22-30 mmol/L Normal 06-08-2020 [facility] (32163) Comment: Performed By: #### LIP #### [facility] [address] [place], [place] [address] Creatinine [Mass/Vol] 0.80 0.58-0.96 mg/dL Normal 06-08-20 [facility] (00 000) Comment: Performed By: #### LIP #### [facility] [address] [place], [place] [address] Glucose [Mass/Vol] 91 74-99 mg/dL Normal 06-08-2020 [facility] (52477) Comment: Result Comment: The [place] Diabetes Association (ADA) provides guidance for cutoff [...] Standards of Medical Care in Diabetes 2016; [place] Diabetes Association. Diabetes Care. 2016;39(Suppl 1). Performed By: #### LIP #### [facility] [address] [place], [place] [address] Potassium [Moles/Vol] 3.7 3.7-5.1 mmol/L Normal 06-08-20 20 [facility] (00 000) Comment: Performed By: #### LIP #### [facility] [address] [place], [place] [address] Sodium [Moles/Vol] 140 136-144 mmol/L Normal 06-08-2020 [facility] (81467) Comment: Performed By: #### LIP #### [facility] [address] [place], [place] [address] Urea nitrogen [Mass/Vol] 13 7-21 mg/dL Normal 06-08 [facility] (26031) Comment: Performed By: #### LIP #### [facility] [address] [place] [id number] allied health on 03-06-25 ALLIED HEALTH HNO ID: [id number] Normal 020 [facility] Author: Deepa (Rt) [facility] ([id number]) Service: Radiology Author Type: Seam Press Operator Type: Allied Health Filed: 06/08/2020 7:02 PM Note Text: Spoke to Garo (RN), in regards to her itching and scratching after the MRI was completed. Garo informed me that she had been itching an d scratching all day. Garo came down and gave the patient medication for the itching and took her back to the room. Kelley Noriega [facility] HNO ID: [id number] Normal 020 [facility] Author: Deepa Mcintosh) [facility] ([id number]) Service: Radiology Author Type: Seam Press Operator Type: Allied Health Filed: 06/08/2020 5:56 [...] TIME: 5:53 PM ALLIED HEALTH HNO ID: [id number] Normal 020 [facility] Author: Deepa (Rt) [facility] ([id number]) Service: Radiology Author Type: Seam Press Operator Type: Allied Health Filed: 06/08/2020 4:21 PM Note Text: Called RN to get MRI order changed to w/wo per radiology pro tocol. Patient is not listed as allergy to gadolinium and creat is WNL. Miar l schedule STAT MRI as soon as order is changed activated ptt on 03-06-25 aPTT Coag (Bld) [Time] 30.5 23.0-32.4 sec Normal 020 [facility] (00 000) Comment: Result Comment: [...] AP TT reagent in use throughout the [facility]. Performed By: #### GFR #### [facility] [address] [place] [address] hosp on 2020-06-07 HOSP Patient:Sally Mcgregor Normal 05-16 [place] MRN: General Height:5' 1(1.549 m) Medical Weight:197 lb 9.6 oz (89.631 kg) Center Outpatient Medications as of 06/11/20: (54006) prazosin (MINIPRESS) 1 mg cap hyoscyamine (LEVSIN) [...] resident's [facility] and/or additions: Admit for symptomatic hepatic cyst. Plan for cyst fenestrati on on Thursday. Signature: Mala Almendarez MD Date: 06/08/2020 Time: 7:09 PM HISTORY AND PHYSICAL EXAMINATION SERVICE DATE: 06/08/2020 SERVICE TIME: 7:12 AM Subjective CHIEF COMPLAINT: Abdominal Pain HPI: 39 year old female presents as a direct adm ission to [facility] with abdominal pain and a known history [...] Benign liver cyst 05/24/2010 CT scan at [facility] 11/2009 and 04/2010 showe 4 mm increase in size . No pain. No elevated LFTs on 03/11/2010. - Calculus of kidney 05/17/[address] Nicolas: Hospitalized age 20, a nd again later -- no procedures so far ([facility], [facility], 1995 [facility]) - Cancer (HCC) - Diverticulosis - [...] ABDOM HYSTERECTOMY 08/31/06 Hysterectomy, [facility] FAMILY HISTORY Problem Relation Age [...] Approx. 3 cigarettes daily-1 pack every w zuni Substance Use Topics - Alcohol use: Yes [...] questions or concerns Thu-Thu 6a-5p please page [phone]. After 5pm and on Weekends an d Holidays, please page [phone] if in ICU or [phone] if on RNF. Britni Grimaldo, RN, RN 06/08/2020 11:00 AM Signed CARE MANAGEMENT: ASSESSMENT AND DISCHARGE PLAN SERVICE DATE: June 08, 2020 SERVICE TIME: 10:50 AM PRIMARY CARE PHYSICIAN: Marcelino Mejia MD (Confirmed with patient) ADMISSION STATUS: Inpatient Needs Prior to Discharge: Pharmacy Bedside Delivery MEDICAL: [facility] MEDICAID Patient/Roving Frame Tender Stated Goals: To return home to life as it was Health Insurance: [facility] Issues Impacting Discharge Plan: Uncontrolled Uncontrolled: [...] completed Advance Directive: Current Advance Directive: None Warehouse General Laborer Attempted to Assist with AD Completion: Yes [...] Patient Currently Receive Any Community Services or [facility] e Care?: None Equipment Prior to [...] Completely I feel financially burdened by my izs-mo-gqojjv expens es for my prescription medication:: 0 - Disagree Completely Risk Score: 0 Patient is categorized as: Low risk < 2 Are you interested in bedside delivery of your medications? Yes Is Patient Psychosocially Complex?: No ASSESSMENT AND PLAN: Medical Needs: Medical Needs: Two or more chronic diseases Psychosocial Needs: Psychosocial Needs: None FREEDOM OF CHOICE EXPLAINED: [place] of Choice Given: No Reason Not Given: [...] 08, 2020 TIME: 10:50 AM PAGER/CONTACT #: [phone] Jasmine Chavez, RN 06/08/2020 10:56 AM Signed Nursing Progress Note Patient Name: Sally Mcgregor Patient Location: [place] [address] [address] Spoke with Doctor Jennings regarding IV con [...] soon as order is changed RT Masoud, DEONTICS 06/08/2020 5:56 PM Signed Radiology Service Progress [...] questions or concerns Thu-Thu 6a-5p please page [phone]. After 5pm and on Weekends and Holidays, please page [phone]. SUBJECTIVE: NAEON. Afebrile. Patient resting in bed [...] 06/08/206[address] - 06/09/2065806/09/20699 - 06/10/20 0659 Shift 4263-0211 9377-6764 23 00-0659 24 Hour Total 7129-8400 5552-6230 9360-2992 24 Hour Total INTAKE Shift Total OUTPUT [...] (TYLENOL) 975 mg ORAL q 6 H NV N - oxyCODONE IR 5-10 mg tab(s) [...] questions or concerns Thu-Thu 6a-5p please page [phone]. After 5pm and on Weekends an d Holidays, please page [phone] if in ICU or [phone] if on RNF. Mer Bejarano, RN, RN [...] questions or concerns Mon-Fri 6a-5p please page [phone]. After 5pm and on Weekends and Holidays, please page [phone]. SUBJECTIVE: NAEON. Afebrile. Patient resting in bed [...] - 06/10/20 0606/10/20699 - 06/11/20 0659 Shift 9050-2396 0039-3141 23 00-0659 24 Hour Total 6195-2251 3832-9127 8413-2773 24 Hour Total INTAKE PO 189 739 6989 PO 682 966 0734 Shift Total 810 897 3505 OUTPUT Urine Urine Not Saved. 2 x [...] questions or concerns Thu-Thu 6a- please page [phone]. After 5pm and on Weekends an d [...] 2020 Notes: Pre-surgery Patient Nothing needed tonight. Contracting Analyst Signature: Chaplain Erick To contact the Spiritual Care Department: Please call [phone] or Page the On-Call Contracting Analyst at pag er [phone] Thank you for the opportunity to be of service. This is an electronically created document. IF PRINTED, PLEASE DO NOT REMOVE FROM THE CHART OR MODIFY NV INTED COPY. Kimmie Jennings DO 06/11/2020 7:03 AM Cosign Needed [facility] Progress Note SERVICE DATE: 06/11/2020 [facility] Service Pager: For questions or concerns Thu-Thu 6a- please page [phone]. After 5pm and on Weekends and Holidays, [...] 06/10/20699 - 06/11/2065806/11/20699 - 06/12/20 0659 Shift 8899-1679 3691-4955 23 00-0659 24 Hour Total 0224-2183 8824-4866 4655-3961 24 Hour Total INTAKE PO 600 600 [...] questions or concerns Thu-Thu 6a-5p please page [phone]. After 5pm and on Weekends an d [...] 11, 2020 TIME: 9:10 AM PAGER/CONTACT #: [phone] Ruben Thompson MD 06/11/2020 9:51 AM Signed [...] Benign liver cyst 05/24/2010 CT scan at [facility] 11/2009 and 04/2010 showe 4 mm increase in size . No pain. No elevated LFTs on 03/11/2010. - Calculus of kidney 05/17/[address] Nicolas: Hospitalized age 20, a nd again later -- no procedures so far ([facility], [facility], [facility]) - Cancer (HCC) - Diverticulosis - [...] ABDOM HYSTERECTOMY 08/31/06 Hysterectomy, [facility] FAMILY HISTORY Problem Relation Age [...] Approx. 3 cigarettes daily-1 pack every w zuni Substance Use Topics - Alcohol use: Yes [...] INTRAVENOUS q 3 H PRN Nigel (Res) [place] 1 mg at 0536 - [MAR Hold [...] June 11, 2020 TIME: 9:49 AM CSN: [id number] Progress Notes ([facility]): Johnny Winn MD 06/06/2020 10:30 AM [...] liver c ysts. All questions answered. MD [facility]ah [facility] 06/06/2020 10:53 AM Signed Patient is calling back with additional questions after speaking with Dr. Winn today. Please call patient. cnpn on 2020-06-06 CNPN Telephone (GSTNOR) Normal 06-06-2020 [facility] SAMSALLY ([id number]) 1980 [facility] Date Time Provider Department ([id number]) 06/06/20 JOHNNY WINN GSTNOR During your visit [...] ysts. All questions answered. MD Rebekah [facility] 06/06/2020 10:53 AM Signed Patient [...] Order(s):CONSULT TO ALLERGY/IMMUNOLOGY [ 9001] Order #: [id number]: 1 FUTURE Prescriptions as of 06/06/2020 Sig: [...] 06/06/20 progress on 2020-05 PROGRESS HNO ID: [id number] Normal 06-05-2020 [facility] Author: Mala sosa ([id number]) Service: ? Author Type: Physician Type: Progress [...] MD progress on 2020-05 PROGRESS HNO ID: [id number] Normal 06-01-2020 [facility] Author: Branden PickardNetwork Navigator) Amalia Mata ([id number]) Service: ? Author Type: Gas Engine Operator Generators Type: Progress Notes Filed: 06/01/2020 12:42 PM Note Text: Patient has follow up with next Thursday for Pancreatitis. progress on 2020-05 PROGRESS HNO ID: [id number] Normal 05-31-2020 [facility] Author: Marcelino Mejia [facility] ([id number]) Service: ? Author Type: Physician Type: Progress Notes Filed: 05/31/2020 10:49 AM Note Text: Patient has a gum cook and would work on getting h er back in with them. She has been seeing them for recurring pancreatit is and stomach issues. I have nothing further I can add to her care at this time. PROGRESS HNO ID: [id number] Normal 05-31-2020 [facility] Author: Branden (Network Navigator) Amalia [facility] ([id number]) Service: ? Author Type: Gas Engine Operator Generators Type: Progress Notes Filed: 05/31/2020 8:49 AM [...] appointment. Thank you SUMMARY: Pt discharged from [facility] on May 29, 2020 Admitted for: Intractable nausea and vomitting Contact made with patient: Yes Hi my name is ANDRE Graham and I am calling from the [facility] on behalf of your PCP, Marcelino Mejia [...] I will send your request to a sealer aircraft who will contact and assist you with [...] out to patient to assist with scheduling CAMPUS SUPERVISOR: Patient Mira status is: Active account Thank [...] on 2020-05-31 CNPN Telephone (GSTNOR) Normal 05-31-2020 [facility] SALLY MCGREGOR ([id number]) 1980 [facility] Date Time Provider Department ([id number]) 05/31/20 JOHNNY WINN GSTNOR During your visit today, we recorded the following informati on about you: Pierce Sunil Cates 05/31/2020 2:37 PM Signed Patient call, said she was doing ok yesterday, today having epigastric abdominal pain, nausea and vomiting. Has appt [facility] Dr. Almendarez next week. Advised ER [...] 05/31/20 progress on 2020-05 PROGRESS HNO ID: [id number] Normal 05-30-2020 [facility] Author: Allie (Network Navigator) Skyler Mata ([id number]) Service: ? Author Type: Gas Engine Operator Generators Type: Progress Notes Filed: 05/31/2020 8:49 AM Note Text: TRANSITIONAL CARE MANAGEMENT (TCM) COMMUNITY MONITORING PROG BRITTANI Provider Action/FYI: Message left for patient. Attempting to schedule TCM appoint ment SUMMARY: [facility]. Admitted for: intractable nausea and vomiting Contact made with patient: No - scheduled next outreach for next business day in the Track Pt Outreach section Outreach ended cnptoutreach on CNPTOUTREACH Patient Outreach (FAMPWS) Normal 0 05-30-2020 [facility] SALLY Martinez ([id number]) 1980 [facility] Date Time Provider Department ([id number]) 05/30/20 ALLIE CHOWDHURY (NETWORK NAVIGATOR)RAMA During your visit today, we recorded the following informati on about you: ANDRE Sorensen 05/31/2020 8:49 AM Signed TRANSITIONAL CARE MANAGEMENT (TCM) COMMUNITY MONITORING PROG BRITTANI Provider Action/FYI: Message left for patient. Attempting to schedule TCM appoint ment SUMMARY: [facility]. Admitted for: intractable nausea and vomiting Contact made with patient: No - scheduled next o [facility] for next day in the [...] appointment. Thank you SUMMARY: Pt discharged from [facility] on May 29, 2020 Admitted for: Intractable nausea and vomitting Contact made with patient: Yes Hi my name is ANDRE Graham and I am calling from the [facility] on behalf of your PCP, Marcelino Mejia [...] I will send your request to a sealer aircraft who will contact and assist you with [...] out to patient to assist with scheduling CAMPUS SUPERVISOR: Patient Mira status is: Active account Thank [...] 05/31/2020 10:49 AM Signed Patient has a gum cook and would work on getting her back [...] Assessed Reason for Visit: Transition Of Care [6354] Cmt: milka, perlita 05/29. initi al outreach [...] 05/31/20 progress on 2020-05 PROGRESS HNO ID: [id number] Normal 05-29-2020 [facility] Author: Vickie Srivastava [facility] Service: Hospital Medicine Medical Author Type: Resident Center Type: Progress Notes ([id number]) Filed: 05/29/2020 2:51 PM Note Text: Attestation [...] PM: You may reach the House Medicine international freight forwarder currently assigned to this patient by jack mahoney their pager number on the treatment team (they will be assigned as the i ntern or resident). It is the last four digits in the phone number be ginning with ([phone]). We encourage the use of Proximetry Secure Chat. SUBJECTIVE HPI: 39 year old F PMHx idiopathic pancreatitis, hepatic cys ts presenting to the ED with intractable nausea and vomiting as well as RU Q abdominal pain for the past 3 days. States that she called her GI doct or Dr. Winn and he told her to come into the ED. She has a scope [facility] ed for 05/[address] Winn. [...] DAILY 05/25/201935 -- 05/25/201944 pneumatic compression stockings (wi,oh) VTE Prophylaxis: VTE prophylaxis appropriate GI Prophylaxis: Indicated due to chronic acid suppression th erapy as an outpatient Telemetry: no Disposition: Home Code Status: Not on file Plan of care discussed with: Provider, RN, Patient SIGNATURE: Vickie Srivastava MD PATIENT NAME: Sally shannon DATE: May 29, 2020 TIME: 1:53 PM plan of care on PLAN OF CARE HNO ID: [id number] Normal 05-29-20 [facility] Author: Felix Foster (Pharmacist) Center ([id number]) Service: Pharmacy Author Type: Pharmacist Type: Plan of Care Filed: 05/29/2020 2:49 PM Note Text: MEDICATION RECONCILIATION Patient Name:Marlen Mcgregor : 1980 Reconciliation: Yes All CRAPS MANAGER medications addressed by LIP Additional comments: aggree with student note Allergies: ALLERGIES Allergen Reactions - Penicillins Rash - Cephalexin Itching - Chlorhexidine Rash Skin rash - Toradol [Ketorolac] Rash - Tramadol Rash - Asa [Salicylates] Other: See Comments ulcers - Contrast Dye [Iodin* Shortness of Breath - Ibuprofen GI Upset - Prednisone Other: See Comments makes agitated and mean Preferred Pharmacy: [facility] Current CRAPS MANAGER Medications: Prior to Admission medications as of 05/29/20 0928 Medication Sig Last Dose Taking prazosin (MINIPRESS) 1 mg cap Take 1 mg by mouth daily at be [facility]. Yes hyoscyamine (LEVSIN) 0.125 mg tablet Take [...] 2:47 PM PLAN OF CARE HNO ID: [id number] Taylor 05-29-20 [facility] Author: Felix Foster (Pharmacist) [place] ([id number]) Service: Pharmacy Author Type: Pharmacist Type: Plan [...] CORADO May 29, 2020 2:50 PM Pager: [phone] 05/29/2020 2:50 PM Medication List START taking [...] Your Medications These medications were sent to [facility]/pharmacy [id number] [place] [address] - [address] [phone] [address] [address] [facility] [address] ? oxyCODONE IR 5 mg immediate release tablet PLAN OF CARE HNO ID: [id number] Taylor 05-29-20 [facility] Author: Felix Foster (Pharmacist) Center ([id number]) Service: Pharmacy Author Type: Pharmacist Type: Plan of Care Filed: 05/29/2020 2:47 PM Note Text: MEDICATION HISTORY Patient Name:Marlen Mcgregor : 1980 Source of history:Patient: Reliability of source: Appears re liable, clearly identified: Medication name, Medication frequency an d Timing of last dose and Pharmacy records: [facility] #[id number] in [place], [place] [phone] Medication Nonadherence Identified: No barriers noted The above information represents the best possible medicatio n history: Yes Additional comments: Confirmed with patient and pharmacist hanna t [facility] Pharmacy - Recent changes to medications outpatient from Dr. Winn, patient did not start Sucralfate and Promethazine prior to admission and only took 1 dose of Hyoscyamine prior to admission Qchup-wb-Aurbvlxqv Medication List Adjustments: Medication Regimen Changes: Promethazine [...] Comments makes agitated and mean Preferred Pharmacy: [facility] #[id number] phone [phone] Current CRAPS MANAGER Medications: Prior to Admission medications as of 05/29/20 0925 Medication Sig Last Dose Taking prazosin (MINIPRESS) 1 mg cap Take 1 mg by mouth daily at [facility]. Yes hyoscyamine (LEVSIN) 0.125 mg tablet [...] stomach, 1/2 hr before meal. Maggi Hernandez (Digital Asset Coordinator) May 29, 2020 9:14 AM mdrd gfr on 2020-05 GFR/1.73 sq M >60 >60mL/min/1.73m2 mL/min/{1.73_m2} Normal [place] [facility] among [facility] th System non-blacks MDRD (000 00) (S/P/Bld) [Vol rate/Area] Comment: Result Comment: If the patie nt is , multiply the result by 1.210. Performed By: #### GFR #### [address] [address] hemogram on 2020-05 Erythrocyte distribution 13.2 11.7-14.4 % Normal 05-29 [facility] width (RBC) [Ratio] System (89997) Comment: Performed By: #### LIP #### [address] [address] Hematocrit (Bld) [Volume 36.1 34.1-44.9 % Normal 05-29 [employer] fraction] System (00 000) Comment: Performed By: #### LIP #### [address] [address] Hemoglobin (Bld) 11.5 11.2-15.7 g/dL Normal 05-29-2020 [facility] [employer] [Mass/Vol] System (0 0000) Comment: Performed By: #### LIP #### [address] [address] MCH (RBC) [Entitic mass] 29.0 25.6-32.2 pg Normal 05-29 [employer] [facility] (00 000) Comment: Performed By: #### LIP #### [address] [address] MCHC (RBC) [Mass/Vol] 31.9 31.6-34.8 % Normal 05-29-20 20 [facility] (33972) Comment: Performed By: #### LIP #### [facility] [address] [place], [place] [address] MCV (RBC) [Entitic vol] 90.9 79.4-94.8 fl Normal 2019 [facility] (00 000) Comment: Performed By: #### LIP #### [facility] [address] [place], [place] [address] Platelet mean volume (Bld) 10.9 9.4-12.3 fl Normal [facility] [Entitic vol] System (65535) Comment: Performed By: #### LIP #### [facility] [address] [place], [place] [address] Platelets (Bld) [#/Vol] 223 182-369 thou/cmm Normal 2019 [facility] (00 000) Comment: Performed By: #### LIP #### [facility] [address] [place], [place] [address] RBC (Bld) [#/Vol] 3.97 3.93-5.22 mil/cmm Normal 05-29-2020 [facility] (00 000) Comment: Performed By: #### LIP #### [facility] [address] [place], [place] [address] RDW SD 43.5 36.4-46.3 fl Normal 05-29-2020 [facility] (03938) Comment: Performed By: #### LIP #### [facility] [address] [place], [place] [address] WBC (Bld) [#/Vol] 5.88 3.98-10.04 thou/cmm Normal 05-29-2020 [facility] (00 000) Comment: Performed By: #### LIP #### [facility] [address] [place], [place] [address] consult on CONSULT HNO ID: [id number] Normal 05-29-2020 [facility] Author: Maria Luisa Joyner [facility] Service: Pain Management ([id number]) Author Type: Physician Type: Consults Filed: 05/29/2020 [...] hepatic cysts, and no evidence of ac [place] pancreatitis with normal lipase, and CBC. At [...] (TYLENOL) 650 mg ORAL q 4 H [place] N Johnny Winn - prazosin (MINIPRESS) 1 [...] Approx. 3 cigarettes daily-1 pack every w zuni Substance Use Topics - Alcohol use: Yes [...] gap [Moles/Vol] 11 9-18 mmol/L Normal 05-29-20 [facility] (57928) Comment: Performed By: #### LIP #### [facility] [address] [place], [place] [address] Calcium [Mass/Vol] 8.8 8.5-10.2 mg/dL Normal 05-29-2020 [facility] (60816) Comment: Performed By: #### LIP #### [facility] [address] [place], [place] [address] Chloride [Moles/Vol] 104 97-105 mmol/L Normal 0 [facility] (95620) Comment: Performed By: #### LIP #### [facility] [address] [place], [place] [address] CO2 Blood 23 22-30 mmol/L Normal 05-29-2020 [facility] (07583) Comment: Performed By: #### LIP #### [facility] [address] [place], [place] [address] Creatinine [Mass/Vol] 0.78 0.58-0.96 mg/dL Normal 05-29-20 [facility] (00 000) Comment: Performed By: #### LIP #### [facility] [address] [place], [place] [address] Glucose [Mass/Vol] 88 74-99 mg/dL Normal 05-29-2020 [facility] (17453) Comment: Result Comment: The [place] Diabetes Association (ADA) provides guidance for cutoff [...] Standards of Medical Care in Diabetes 2016; [place] Diabetes Association. Diabetes Care. 2016;39(Suppl 1). Performed By: #### LIP #### [facility] [address] [place], [place] [address] Potassium [Moles/Vol] 3.4 3.7-5.1 mmol/L Low 05-29-20 [facility] (88230) Comment: Performed By: #### LIP #### [facility] [address] [place] [address] Sodium [Moles/Vol] 138 136-144 mmol/L Normal 05-29-2020 [facility] (72847) Comment: Performed By: #### LIP #### [facility] [address] [place] [address] Urea nitrogen [Mass/Vol] 6 7-21 mg/dL Low 05-29 [facility] ([id number]) Comment: Performed By: #### LIP #### [facility] [address] [place] [address] surgical tissue exam on 2020-05-28 Surgical Tissue Test performed at [facility] Normal 05-28-2020 [place] [facility] [address] [place] [address] ([id number]) NAME: SALLY MCGREGOR REQUESTING: JOHNNY WINN MD [...] 1 Comment: Performed By: #### LIP #### [facility] [address] [place] [address] pt ed on 2020-05-28 PT ED HNO ID: [id number] Normal 05-28-2020 [facility] Author: Flakita Ragland RN [facility] ([id number]) Service: Nursing Author Type: Registered Nurse Type: [...] Flakita Ragland RN PT ED HNO ID: [id number] Taylor 05-28-2020 [facility] Author: Flakita Ragland RN [place] ([id number]) Service: Nursing Author Type: Registered Nurse Type: [...] RN progress on 2020-05 PROGRESS HNO ID: [id number] Taylor 05-28-2020 [place] Author: Vickie Beck [facility] Service: Hospital Medicine Medical Author Type: Resident Center Type: Progress Notes ([id number]) Filed: 05/28/2020 1:52 PM Note Text: Attestation [...] PM: You may reach the House Medicine international freight forwarder currently assigned to this patient by findin g their pager number on the treatment team (they will be assigned as the i ntern or resident). It is the last four digits in the phone number be ginning with ([phone]). We encourage the use of Proximetry Secure Chat. SUBJECTIVE HPI: 39 year old F PMHx idiopathic pancreatitis, hepatic cys ts presenting to the ED with intractable nausea and vomiting as well as RU Q abdominal pain for the past 3 days. States that she called her GI doct or Dr. Winn and he told her to come into the ED. She has a [facility] ed for 05/[address] Winn. [...] operative no on OPERATIVE NO HNO ID: [id number] Normal 05-28-20 [facility] [facility] Author: [facility] Service: Gastroenterology ([id number]) Author Type: Physician Type: Operative Report Filed: 05/28/2020 1:07 PM Note Text: OPERATIVE/PROCEDURE REPORT LOG ID: [id number] Surgery/Procedure Date: 05/28/2020 Incision/Procedure Start Time: 12:32 PM Incision Close/Procedure End Time: 1:00 PM Surgeon(s)/Proceduralist(s) and Gas Plant Worker(s): Surgeon(s) and Role: * [facility] - [...] PPI. nursing prog on NURSING HNO ID: [id number] Normal 05-28-2020 [place] Author: Rupal (Rn) VIN [facility] General Service: [...] Erythrocyte distribution 13.2 11.7-14.4 % Normal 05-28 [facility] width (RBC) [Ratio] System (32778) Comment: Performed By: #### LIP #### [facility] [address] [place], [place] [address] Hematocrit (Bld) [Volume 32.2 34.1-44.9 % Low 05-28 [facility]] System (00 000) Comment: Performed By: #### LIP #### [facility] [address] [place], [place] [address] Hemoglobin (Bld) [Mass/Vol] 10.1 11.2-15.7 g/dL Low [facility] (00 000) Comment: Performed By: #### LIP #### [facility] [address] [place], [place] [address] MCH (RBC) [Entitic mass] 28.5 25.6-32.2 pg Normal 05-28 [place] [facility] (00 000) Comment: Performed By: #### LIP #### [facility] [address] [place], [place] [address] MCHC (RBC) [Mass/Vol] 31.4 31.6-34.8 % Low 05-28-20 20 [facility] (85938) Comment: Performed By: #### LIP #### [facility] [address] [place], [place] [address] MCV (RBC) [Entitic vol] 90.7 79.4-94.8 fl Normal 2019 [facility] (00 000) Comment: Performed By: #### LIP #### [facility] [address] [place] [address] Platelet mean volume (Bld) 10.7 9.4-12.3 fl Normal [facility] [Entitic vol] System (56234) Comment: Performed By: #### LIP #### [facility] [address] [place] [id number] Platelets (Bld) [#/Vol] 186 182-369 thou/cmm Normal 2019 [facility] (00 000) Comment: Performed By: #### LIP #### [facility] [address] [place] [address] RBC (Bld) [#/Vol] 3.55 3.93-5.22 mil/cmm Low 05-28-2020 [facility] (32763) Comment: Performed By: #### LIP #### [facility] [address] [place] [address] RDW SD 43.3 36.4-46.3 fl Normal 05-28-2020 [facility] (69282) Comment: Performed By: #### LIP #### [facility] [address] [place] [id number] WBC (Bld) [#/Vol] 6.36 3.98-10.04 thou/cmm Normal 05-28-2020 [facility] (00 000) Comment: Performed By: #### LIP #### [facility] [address] [place] [address] consult on CONSULT HNO ID: [id number] Normal 05-28-2020 [facility] Author: Ramone Albarado [facility] [place] Service: Pain Management ([id number]) Author Type: Physician Type: Consults Filed: 05/28/2020 [...] hepatic cysts, and no evidence of ac [place] pancreatitis with normal lipase, and CBC. At this time, not experiencing any fever, chills, sweats, he matemesis, hematochezia, additional GI, , constitutional, pulmonary, or other symptoms. Current Facility-Administered Medications Medication Dose Route Frequency Provider Last Rate Last Dose - oxyCODONE IR 10 mg tab(s) (ROXICODONE) 10 mg ORAL q 6 H NV N Maggi (Res) MD Mark 10 mg [...] (TYLENOL) 650 mg ORAL q 4 H NV N Eduar (Res) Metry - hyoscyamine (LEVSIN) [...] Approx. 3 cigarettes daily-1 pack every w [facility] Substance Use Topics - Alcohol use: Yes [...] gap [Moles/Vol] 8 9-18 mmol/L Low 05-28-20 [facility] (92461) Comment: Performed By: #### LIP #### [facility] [address] [place] [address] Calcium [Mass/Vol] 7.2 8.5-10.2 mg/dL Low 05-28-2020 [facility] (10751) Comment: Performed By: #### LIP #### [facility] [address] [place], [place] [address] Chloride [Moles/Vol] 111 97-105 mmol/L High 0 [facility] (36492) Comment: Performed By: #### LIP #### [facility] [address] [place], [place] [address] CO2 Blood 22 22-30 mmol/L Normal 05-28-2020 [facility] (44900) Comment: Performed By: #### LIP #### [facility] [address] [place], [place] [address] Creatinine [Mass/Vol] 0.69 0.58-0.96 mg/dL Normal 05-28-20 [facility] (00 000) Comment: Performed By: #### LIP #### [facility] [address] [place], [place] [address] Glucose [Mass/Vol] 73 74-99 mg/dL Low 05-28-2020 [facility] (65072) Comment: Result Comment: The [place] Diabetes Association (ADA) provides guidance for cutoff [...] Standards of Medical Care in Diabetes 2016; [place] Diabetes Association. Diabetes Care. 2016;39(Suppl 1). Performed By: #### LIP #### [facility] [address] [place], [place] [address] Potassium [Moles/Vol] 2.9 3.7-5.1 mmol/L Low 05-28-20 [facility] (90658) Comment: Performed By: #### LIP #### [facility] [address] [place], [place] [address] Sodium [Moles/Vol] 141 136-144 mmol/L Normal 05-28-2020 [facility] (70999) Comment: Performed By: #### LIP #### [facility] [address] [place], [place] [address] Urea nitrogen [Mass/Vol] 5 7-21 mg/dL Low 05-28 [facility] (89380) Comment: Performed By: #### LIP #### [facility] [address] [place], [place] [address] anes preop on 05-28 ANES PREOP HNO ID: [id number] Normal 05-28-2020 [facility] Author: Delon Florence [facility] Service: Anesthesiology ([id number]) Author Type: Physician Type: Anesthesia PreOp Filed: [...] Benign liver cyst 05/24/2010 CT scan at [facility] 11/2009 and 04/2010 showe 4 mm increase in size . No pain. No elevated LFTs on 03/11/2010. - Calculus of kidney 05/17/[address] Nicolas: Hospitalized age 20, and again later -- no procedures so far ([facility], [facility], 1995 [facility]) - Cancer (HCC) - Diverticulosis - [...] ABDOM HYSTERECTOMY 08/31/06 Hysterectomy, [facility] FAMILY HISTORY Problem Relation Age [...] Approx. 3 cigarettes daily-1 pack every w [facility] Substance Use Topics - Alcohol use: Yes [...] May 28, 2020 TIME: 12:15 PM CSN: [id number] anes post on 0 -14 ANES POST HNO ID: [id number] Normal 05-28-2020 [facility] Author: Delon Duenas [place] ([id number]) Service: Anesthesiology Author Type: Physician Type: Anesthesia [...] 1001 progress on 2020-05 PROGRESS HNO ID: [id number] Taylor 05-27-2020 [place] Author: Vickie Srivastava General Service: Hospital Medicine Medical Author Type: Resident Center Type: Progress Notes ([id number]) Filed: 05/27/2020 4:19 PM Note Text: Attestation [...] PM: You may reach the House Medicine international freight forwarder currently assigned to this patient by findin g their pager number on the treatment team (they will be assigned as the i ntern or resident). It is the last four digits in the phone number be ginning with ([phone]). We encourage the use of Proximetry Secure Chat. SUBJECTIVE HPI: 39 year old F PMHx idiopathic pancreatitis, hepatic cys ts presenting to the ED with intractable nausea and vomiting as well as RU Q abdominal pain for the past 3 days. States that she called her GI doct or Dr. Winn and he told her to come into the ED. She has a scope [facility] ed for 05/[address] Winn. [...] DAILY 05/25/201935 -- 05/25/201944 pneumatic compression stockings (wi,nj) VTE Prophylaxis: VTE prophylaxis appropriate GI Prophylaxis: Indicated due to chronic acid suppression th erapy as an outpatient Telemetry: no Disposition: Home Code Status: Not on file Plan of care discussed with: Provider, RN, Patient SIGNATURE: Vickie Srivastava MD PATIENT NAME: Sally shannon DATE: May 27, 2020 TIME: 1:53 PM plan of care on PLAN OF CARE HNO ID: [id number] Normal 05-27-20 [facility] Author: Joe Romero) [facility] Service: Gastroenterology ([id number]) Author Type: Physician Gas Plant Worker Type: Plan of Care Filed: 05/27/2020 1:17 [...] (TYLENOL) 650 mg ORAL q 4 H NV N - oxyCODONE IR 10 mg tab(s) (ROXICODONE) 10 mg ORAL q 6 H NV N Objective PHYSICAL EXAM: VITALS:BP 119/74 Pulse [...] 27, 2020 TIME: 1:15 PM PAGER/CONTACT #: [facility] Office Supervisor Pager hemogram on 2020-05 Erythrocyte distribution 13.3 11.7-14.4 % Normal 05-27 [facility] width (RBC) [Ratio] System (10787) Comment: Performed By: #### LIP #### [facility] [address] [place], [place] [address] Hematocrit (Bld) [Volume 35.9 34.1-44.9 % Normal 05-27 [facility] fraction] System (00 000) Comment: Performed By: #### LIP #### [facility] [address] [place], [place] [address] Hemoglobin (Bld) 11.3 11.2-15.7 g/dL Normal 05-27-2020 [employer] [facility] [Mass/Vol] System (0 0000) Comment: Performed By: #### LIP #### [facility] [address] [place], [place] [address] MCH (RBC) [Entitic mass] 29.1 25.6-32.2 pg Normal 05-27 [facility] (00 000) Comment: Performed By: #### LIP #### [facility] [address] [place], [place] [address] MCHC (RBC) [Mass/Vol] 31.5 31.6-34.8 % Low 05-27-20 20 [facility] (20708) Comment: Performed By: #### LIP #### [address] [address] MCV (RBC) [Entitic vol] 92.5 79.4-94.8 fl Normal 2019 [facility] (00 000) Comment: Performed By: #### LIP #### [facility] [address] [place], [place] [address] Platelet mean volume (Bld) 10.6 9.4-12.3 fl Normal [facility] [Entitic vol] System (14176) Comment: Performed By: #### LIP #### [facility] [address] [place], [place] [address] Platelets (Bld) [#/Vol] 197 182-369 thou/cmm Normal 2019 [facility] (00 000) Comment: Performed By: #### LIP #### [facility] [address] [place] [id number] RBC (Bld) [#/Vol] 3.88 3.93-5.22 mil/cmm Low 05-27-2020 [facility] (22550) Comment: Performed By: #### LIP #### [facility] [address] [place] [address] RDW SD 44.6 36.4-46.3 fl Normal 05-27-2020 [facility] (13320) Comment: Performed By: #### LIP #### [facility] [address] [place], [place] [address] WBC (Bld) [#/Vol] 6.15 3.98-10.04 thou/cmm Normal 05-27-2020 [facility] (00 000) Comment: Performed By: #### LIP #### [facility] [address] [place] [id number] basic metabolic panel on 2020-05-27 Anion gap [Moles/Vol] 10 9-18 mmol/L Normal 05-27-20 [facility] (96906) Comment: Performed By: #### LIP #### [facility] [address] [place] [id number] Calcium [Mass/Vol] 8.6 8.5-10.2 mg/dL Normal 05-27-2020 [facility] (94000) Comment: Performed By: #### LIP #### [facility] [address] [place] [id number] Chloride [Moles/Vol] 106 97-105 mmol/L High 0 [facility] (32062) Comment: Performed By: #### LIP #### [facility] [address] [place], [place] [address] CO2 Blood 24 22-30 mmol/L Normal 05-27-2020 [facility] (87907) Comment: Performed By: #### LIP #### [facility] [address] [place], [place] [address] Creatinine [Mass/Vol] 0.87 0.58-0.96 mg/dL Normal 05-27-20 [facility] (00 000) Comment: Performed By: #### LIP #### [facility] [address] [place], [place] [address] Glucose [Mass/Vol] 82 74-99 mg/dL Normal 05-27-2020 [facility] (78853) Comment: Result Comment: The [place] Diabetes Association (ADA) provides guidance for cutoff [...] Standards of Medical Care in Diabetes 2016; [place] Diabetes Association. Diabetes Care. 2016;39(Suppl 1). Performed By: #### LIP #### [facility] [address] [place], [place] [address] Potassium [Moles/Vol] 3.5 3.7-5.1 mmol/L Low 05-27-20 20 [facility] (57363) Comment: Performed By: #### LIP #### [facility] [address] [place], [place] [address] Sodium [Moles/Vol] 140 136-144 mmol/L Normal 05-27-2020 [facility] (66672) Comment: Performed By: #### LIP #### [facility] [address] [place], [place] [address] Urea nitrogen [Mass/Vol] 7 7-21 mg/dL Normal 05-27 [facility] (08605) Comment: Performed By: #### LIP #### [facility] [address] [place], [place] [address] progress on 2020-05 PROGRESS HNO ID: [id number] Normal 05-26-2020 [place] Author: Vickie Srivastava [facility] Service: Hospital Medicine Medical Author Type: Resident Center Type: Progress Notes ([id number]) Filed: 05/26/2020 2:11 PM Note Text: Attestation signed by Oh Arreaga at 05/26/2020 2:23 PM Attending Note I personally saw and examined the patient on 05/26/20. I rev iewed the resident's note. I agree with the resident's assessment and plan unless otherwise noted. Signature: Oh Arreaga DO Date: 05/26/2020 Time: 2:23 PM Pager: [phone] HOUSE MEDICINE SERVICE PROGRESS NOTE SERVICE DATE: May 26, 2020 SERVICE TIME: 1:53 PM NIGHT AND WEEKEND COVERAGE: From 6 AM to 5 PM: You may reach the House Medicine international freight forwarder currently assigned to this patient by findin g their pager number on the treatment team (they will be assigned as the i ntern or resident). It is the last four digits in the phone number be ginning with ([phone]). We encourage the use of Proximetry Secure Chat. SUBJECTIVE HPI: 39 year old F PMHx idiopathic pancreatitis, hepatic cys ts presenting to the ED with intractable nausea and vomiting as well as RU Q abdominal pain for the past 3 days. States that she called her GI doct or Dr. Winn and he told her to come into the ED. She has a scope [facility] ed for 05/[address] Winn. [...] 05/25/20 193 -- 05/25/201944 pneumatic compression stockings (wi,nj) VTE Prophylaxis: VTE prophylaxis appropriate GI Prophylaxis: Indicated due to chronic acid suppression th erapy as an outpatient Telemetry: no Disposition: Home Code Status: Not on file Plan of care discussed with: Provider, RN, Patient SIGNATURE: Vickie Sirvastava MD PATIENT NAME: Sally shannon DATE: May 26, 2020 TIME: 1:53 PM hemogram on 2020-05 Erythrocyte distribution 13.3 11.7-14.4 % Normal 05-26 [place] [facility] width (RBC) [Ratio] System (38746) Comment: Performed By: #### CBC1 #### [address] [address] Hematocrit (Bld) [Volume 33.7 34.1-44.9 % Low 05-26 [place] [facility] fraction] System (00 000) Comment: Performed By: #### CBC1 #### [address] [address] Hemoglobin (Bld) [Mass/Vol] 10.8 11.2-15.7 g/dL Low [facility] (00 000) Comment: Performed By: #### CBC1 #### [facility] [address] [place], [place] [address] MCH (RBC) [Entitic mass] 29.3 25.6-32.2 pg Normal 05-26 [facility] (00 000) Comment: Performed By: #### CBC1 #### [facility] [address] [place], [place] [address] MCHC (RBC) [Mass/Vol] 32.0 31.6-34.8 % Normal 05-26-20 20 [facility] (54567) Comment: Performed By: #### CBC1 #### [facility] [address] [place], [place] [address] MCV (RBC) [Entitic vol] 91.3 79.4-94.8 fl Normal 2019 [facility] (00 000) Comment: Performed By: #### CBC1 #### [facility] [address] [place], [place] [address] Platelet mean volume (Bld) 10.8 9.4-12.3 fl Normal [facility] [Entitic vol] System (86627) Comment: Performed By: #### CBC1 #### [facility] [address] [place], [place] [address] Platelets (Bld) [#/Vol] 226 182-369 thou/cmm Normal 2019 [facility] (00 000) Comment: Performed By: #### CBC1 #### [facility] [address] [place], [place] [address] RBC (Bld) [#/Vol] 3.69 3.93-5.22 mil/cmm Low 05-26-2020 [facility] (65750) Comment: Performed By: #### CBC1 #### [facility] [address] [place], [place] [address] RDW SD 44.3 36.4-46.3 fl Normal 05-26-2020 [facility] (50276) Comment: Performed By: #### CBC1 #### [facility] [address] [place], [place] [address] WBC (Bld) [#/Vol] 9.78 3.98-10.04 thou/cmm Normal 05-26-2020 [facility] (00 000) Comment: Performed By: #### CBC1 #### [facility] [address] [place], [place] [address] coronavirus 2019 on 2020-05-26 COVID 19 Result DOBBY LOOMS PEGGER Negative CORNESonya Normal 05-26-2020 [facility] (87229) Comment: Result Comment: Negative for COVID19 (SARS CoV2) by PCR. This test was developed and its performance characteristics determined by [facility] [place]. This test has bee n authorized by [...] issued on November 12, 2019. Performing Laboratory: [facility] [address] [place] [address] Performed By: #### CD19X ### # [address] [address] consult on CONSULT HNO ID: [id number] Normal 05-26-2020 [facility] Author: Joe Romero) [facility] Service: Gastroenterology (50722) Author Type: Physician Gas Plant Worker Type: Consults Filed: 05/26/2020 11:22 AM Note [...] Benign liver cyst 05/24/2010 CT scan at [facility] 11/2009 and 04/2010 showe 4 mm increase in size . No pain. No elevated LFTs on 03/11/2010. - Calculus of kidney 05/17/[address] Nicolas: Hospitalized age 20, and again later -- no procedures so far ([facility], [facility], 1995 [facility]) - Cancer (HCC) - Diverticulosis - [...] ABDOM HYSTERECTOMY 08/31/06 Hysterectomy, [facility] FAMILY HISTORY Problem Relation Age [...] Approx. 3 cigarettes daily-1 pack every w [place] Substance Use Topics - Alcohol use: Yes [...] (TYLENOL) 650 mg ORAL q 4 H NV N ALLERGIES Allergen Reactions - Penicillins Rash [...] 26, 2020 TIME: 11:10 AM PAGER/CONTACT #: [phone] After 3PM please use on-call paging system basic metabolic panel on 2020-05-26 Anion gap [Moles/Vol] 9 9-18 mmol/L Normal 05-26-20 20 [facility] (25099) Comment: Performed By: #### BMP #### [facility] [address] [place], [place] [address] Calcium [Mass/Vol] 9.0 8.5-10.2 mg/dL Normal 05-26-2020 [facility] (88838) Comment: Performed By: #### BMP #### [facility] [address] [place], [place] [address] Chloride [Moles/Vol] 104 97-105 mmol/L Normal 0 [facility] (36633) Comment: Performed By: #### BMP #### [facility] [address] [place], [place] [address] CO2 Blood 25 22-30 mmol/L Normal 05-26-2020 [facility] (70083) Comment: Performed By: #### BMP #### [facility] [address] [place], [place] [address] Creatinine [Mass/Vol] 0.86 0.58-0.96 mg/dL Normal 05-26-20 20 [facility] (00 000) Comment: Performed By: #### BMP #### [facility] [address] [place], [place] [address] Glucose [Mass/Vol] 87 74-99 mg/dL Normal 05-26-2020 [facility] (05261) Comment: Result Comment: The [place] Diabetes Association (ADA) provides guidance for cutoff [...] Standards of Medical Care in Diabetes 2016; [place] Diabetes Association. Diabetes Care. 2016;39(Suppl 1). Performed By: #### BMP #### [facility] [address] [place], [place] [address] Potassium [Moles/Vol] 3.5 3.7-5.1 mmol/L Low 05-26-20 20 [facility] (83290) Comment: Performed By: #### BMP #### [facility] [address] [place], [place] [address] Sodium [Moles/Vol] 138 136-144 mmol/L Normal 05-26-2020 [facility] (74331) Comment: Performed By: #### BMP #### [address] [address] Urea nitrogen [Mass/Vol] 9 7-21 mg/dL Normal 05-26 [facility] (38089) Comment: Performed By: #### BMP #### [address] [address] urine drug screen o n 2020-05-25 Urine Alcohol <11 0-11 Normal 05-25-2020 [facility] (44941) Comment: Performed By: #### UDRG3 ### # [address] [address] Urine Amphetamine NEGATIVE NEGATIVE Normal 05-25-2020 [facility] (46998) Comment: Performed By: #### UDRG3 ### # [address] [address] Urine Barbiturates NEGATIVE NEGATIVE Normal 05-25-2020 [facility] (22321) Comment: Performed By: #### UDRG3 ### # [address] [address] Urine Benzodiazepine NEGATIVE NEGATIVE Normal 0 [facility] (00 000) Comment: Performed By: #### UDRG3 ### # [address] [address] Urine Cocaine Metab NEGATIVE NEGATIVE Normal 05-25-2020 [facility] (58224) Comment: Performed By: #### UDRG3 ### # [address] [address] Urine Opiates see below NEGATIVE Abnormal 05-25-2020 [facility] (64034) Comment: Result Comment: PRESUMPTIVE POSITIVE Performed By: #### UDRG3 ### # [facility] [address] [place], [place] [address] Urine Oxycodone NEGATIVE NEGATIVE Normal 05-25-2020 [facility] (98487) Comment: Performed By: #### UDRG3 ### # [facility] [address] [place], [place] [address] Urine PCP NEGATIVE NEGATIVE Normal 05-25-2020 [facility] (46127) Comment: Result Comment: Test Cutoff Unit Amphetamines 1000 ng/mL Barbiturates 200 ng/mL Benzodiazepines 200 ng/mL Cannabinoids 50 ng/mL Cocaine 300 ng/mL Opiates 300 ng/mL Oxycodone 100 ng/mL Phencyclidine 25 ng/mL Reference Range: Negative at cutoff threshold Immunoassay screen only. Hospitalist Medical Director ss reactivity with other substances can occur [...] the same specimen through the laboratory at ([phone]) if contact ed within 48 hours of initial 1. Substance Abuse and [facility] (2012). Clini asm Drug Testing in Primary Care Technical Assistance Publica tion Series 32. Department of Health and Human Services, [place], p.10. Performed By: #### UDRG3 ### # [facility] [address] [place], [place] [address] Urine THC NEGATIVE NEGATIVE Normal 05-25-2020 [facility] (42893) Comment: Performed By: #### UDRG3 ### # [facility] [address] [place], [place] [address] urinalysis routine on 2020-05-25 RBC LM.HPF (Urine sed) 0.0-3 0.0-5.0 Normal 020 [facility] [#/Area] System (00 000) Comment: Performed By: #### URIN2 ### # [facility] [address] [place], [place] [address] Bacteria LM.HPF (Urine sed) NONE None Normal [facility] [#/Area] (31917) Comment: Performed By: #### URIN2 ### # [facility] [address] [place], [place] [address] Ep Cells Urine 21.5 0.0-5.0 /hpf High 05-25-2020 [facility] (73221) Comment: Performed By: #### URIN2 ### # [facility] [address] [place], [place] [address] Hyaline Cast 0.0 0.0-1.0 /lpf Normal 05-25-2020 [facility] (08896) Comment: Performed By: #### URIN2 ### # [facility] [address] [place], [place] [address] WBC LM.HPF (Urine sed) 2.9 0.0-5.0 /hpf Normal 020 [facility] [#/Area] System (00 000) Comment: Performed By: #### URIN2 ### # [facility] [address] [place], [place] [address] Appearance (U) CLOUDY Normal 05-25-2020 [facility] (22085) Comment: Performed By: #### URIN2 ### # [facility] [address] [place], [place] [address] Bilirubin (U) NEGATIVE Negative mg/dL Normal 05-25-2020 [facility] [Mass/Vol] System (0 0000) Comment: Performed By: #### URIN2 ### # [facility] [address] [place], [place] [address] Color (U) YELLOW Normal 05-25-2020 [facility] (12270) Comment: Performed By: #### URIN2 ### # [facility] [address] [place], [place] [address] Glucose Ql (U) NEGATIVE Negative Normal 05-25-2020 [facility] (75003) Comment: Performed By: #### URIN2 ### # [facility] [address] [place], [place] [address] Hemoglobin,Urine NEGATIVE Negative Normal 05-25-2020 [facility] (02323) Comment: Performed By: #### URIN2 ### # [facility] [address] [place], [place] [address] Ketone Urine NEGATIVE Negative Normal 05-25-2020 [facility] (32930) Comment: Performed By: #### URIN2 ### # [facility] [address] [place], [place] [address] Leukocytes Esterase NEGATIVE Negative Normal 05-25-2020 [facility] (61836) Comment: Performed By: #### URIN2 ### # [facility] [address] [place], [place] [address] Nitrites Urine NEGATIVE Negative Normal 05-25-2020 [facility] (15319) Comment: Performed By: #### URIN2 ### # [address] [address] pH (U) 5.5 5.0-8.0 [pH] Normal 05-25-2020 [facility] (05036) Comment: Performed By: #### URIN2 ### # [facility] [address] [place], [place] [address] Protein (U) [Mass/Vol] NEGATIVE Negative mg/dL Normal 020 [facility] (00 000) Comment: Performed By: #### URIN2 ### # [facility] [address] [place], [place] [address] Specific [place], Ur 1.024 1.005-1.030 Normal 020 [facility] (00 000) Comment: Performed By: #### URIN2 ### # [facility] [address] [place], [place] [address] Urobilinogen,Ur 0.2 0.2-1.0 EU/dL Normal 05-25-2020 [facility] (97790) Comment: Performed By: #### URIN2 ### # [facility] [address] [place], [place] [address] nursing prog on 202 NURSING PROG HNO ID: [id number] Normal 05-25-20 [facility] Author: Eleanor (Rn) VIN Parrish [place] ([id number]) Service: ? Author Type: Registered Nurse Type: [...] Lipase Blood 25 16-61 U/L Normal 05-25-2020 [facility] (76032) Comment: Performed By: #### LIP #### [place] [address] hosp on 2020-05-25 HOSP Patient:Sally Mcgregor Normal 05-15 [place] MRN: General Height:5' 1(1.549 m) Medical Weight:200 lb 6.4 oz (90.901 kg) Center Outpatient Medications as of 05/28/20: (66035) hyoscyamine (LEVSIN) 0.125 mg tablet sucralfate (CARAFATE) [...] 32.2 % 05/28/2020 44.9 34.1 Progress Notes ([facility]): Pierce Barber Ma 05/25/2020 4:24 PM [...] since Thursday night. Patient was seen at [place] ED on Thursday night where she was given fluids, told her labs looked fine and was discharged home. Sameer cheney follows with Dr. Winn for GI as she has a 9 cm cyst in her liver and history of pancreatitis . Patient is scheduled for endoscopy and ultrasound on . She states that Dr. Winn told her to come to [facility] ED for specific type of imaging [...] v Family history: of suicide, attempts, or [place] 1 psychiatri c disorders requiring hospitalization v Precipitants/Stressors/Interpersonal: triggering events le ading to humiliation, shame or despair (e.g; loss of relationship, fi nancial or Health status-real or antici pated). Ongoing medical illness (zohreh. GM MOBILE disorders, pain). Intoxication. Family turmoil/chaos. History of Physical or sexual abuse. Social isolation. v Change in treatment: discharge from psychiatric hospital, provider or treatment change v Access to firearms 2.??? PROTECTIVE FACTORS pro tective factors, even if present, may not counteract significant acute risk v Internal: ability to cope with stress, amish beliefs, frustration tolerance v External: responsibility to [...] Benign liver cyst 05/24/2010 CT scan at [facility] 11/2009 and 04/2010 showe 4 mm increase in size . No pain. No elevated LFTs on 03/11/2010. - Calculus of kidney 05/17/[address] Nicolas: Hospitalized age 20, a nd again later -- no procedures so far ([facility], most, 1995 [facility]) - Cancer (HCC) - Diverticulosis - [...] ABDOM HYSTERECTOMY 08/31/06 Hysterectomy, [facility] FAMILY HISTORY Problem Relation Age [...] Approx. 3 cigarettes daily-1 pack every w zuni Substance and Sexual Activity - Alcohol use: [...] PM: You may reach the House Medicine international freight forwarder currently assigned to this patien t by finding their pager number on the treatment team (they will be assigned as the international freight forwarder or resident). It is the last four digits in the phone num alyson beginning with ([phone]). We encourage the use of Proximetry Secure Chat. PCP: Marcelino Mejia MD Admitting [...] Benign liver cyst 05/24/2010 CT scan at [facility] 11/2009 and 04/2010 showe 4 mm increase in size . No pain. No elevated LFTs on 03/11/2010. - Calculus of kidney 05/17/[address] Nicolas: Hospitalized age 20, a nd again later -- no procedures so far ([facility], [facility], 1995 [facility]) - Cancer (HCC) - Diverticulosis - [...] Approx. 3 cigarettes daily-1 pack every w zuni Substance Use Topics - Alcohol use: Yes [...] Benign liver cyst 05/24/2010 CT scan at [facility] 11/2009 and 04/2010 showe 4 mm increase in size . No pain. No elevated LFTs on 03/11/2010. - Calculus of kidney 05/17/[address] Nicolas: Hospitalized age 20, a nd again later -- no procedures so far ([facility], most, 1995 [facility]) - Cancer (HCC) - Diverticulosis - [...] Approx. 3 cigarettes daily-1 pack every w zuni Substance Use Topics - Alcohol use: Yes [...] (TYLENOL) 650 mg ORAL q 4 H NV N ALLERGIES Allergen Reactions - Penicillins Rash [...] 26, 2020 TIME: 11:10 AM PAGER/CONTACT #: [phone] After 3PM please use on-call paging system Vickie Srivastava MD 05/26/2020 2:11 PM Attested Attestation signed by Oh Arreaga at 05/26/2020 2:23 PM Attending Note I personally saw and examined the patient on 05/26/20. I rev iewed the resident's note. I agree with the resident's assessment and plan unless otherwise noted. Signature: Oh Arreaga, DO Date: 05/26/2020 Time: 2:23 PM Pager: [phone] HOUSE MEDICINE SERVICE PROGRESS NOTE SERVICE DATE: May 26, 2020 SERVICE TIME: 1:53 PM NIGHT AND WEEKEND COVERAGE: From 6 AM to 5 PM: You may reach the House Medicine international freight forwarder currently assigned to this patien t by finding their pager number on the treatment team (they will be assigned as the international freight forwarder or resident). It is the last four digits in the phone num alyson beginning with ([phone]). We encourage the use of Proximetry Secure Chat. SUBJECTIVE HPI: 39 year old [...] 05/25/20 193 -- 05/25/201944 pneumatic compression stockings (wi,oh) VTE Prophylaxis: VTE prophylaxis appropriate GI Prophylaxis: [...] (TYLENOL) 650 mg ORAL q 4 H NV N - oxyCODONE IR 10 mg tab(s) (ROXICODONE) 10 mg ORAL q 6 H NV N Objective PHYSICAL EXAM: VITALS:BP 119/74 Pulse [...] 27, 2020 TIME: 1:15 PM PAGER/CONTACT #: [facility] Office Supervisor Pager Vickie Srivastava MD 05/27/2020 4:19 PM [...] PM: You may reach the House Medicine international freight forwarder currently assigned to this patien t by finding their pager number on the treatment team (they will be assigned as the international freight forwarder or resident). It is the last four digits in the phone num alyson beginning with ([phone]). We encourage the use of Proximetry Secure Chat. SUBJECTIVE HPI: 39 year old [...] Note Patient Name: Sally Mcgregor Patient Location: [id number] Attempted to draw AM labs. Was unsuccessful x 2 attempts. This note was completed by: VIN Conley MD 05/28/2020 8:57 AM Incomplete HOUSE MEDICINE SERVICE PROGRESS NOTE SERVICE DATE: May 28, 2020 SERVICE TIME: 1:53 PM NIGHT AND WEEKEND COVERAGE: From 6 AM to 5 PM: You may reach the House Medicine international freight forwarder currently assigned to this patien t by finding their pager number on the treatment team (they will be assigned as the international freight forwarder or resident). It is the last four digits in the phone num alyson beginning with ([phone]). We encourage the use of Proximetry Secure Chat. SUBJECTIVE HPI: 39 year old [...] delete will not show in completed note) :[id number] } Intractable nausea and vomiting Intractable nausea [...] delete will not show in completed note) :[id number] } Medication and Non-Pharmacologic VTE Prophylaxis/Anticoagula nts Anticoagulant AND Antiplatelet Medications (From admission, onward) Start Dose Route Frequency Ordered Stop 05/25/201999 enoxaparin 40 mg injection (LOVENOX) (Me dical Risk Categories) 40 mg SUBCUTANEOUS DAILY 05/25/201935 -- 05/25/201944 pneumatic compression stockings (wi,oh) VTE Prophylaxis: VTE prophylaxis appropriate GI Prophylaxis: [...] (ROXICODONE) 10 mg ORAL q 6 H NV N Maggi (Kiran) MD Mark 10 mg [...] Approx. 3 cigarettes daily-1 pack every w zuni Substance Use Topics - Alcohol use: Yes [...] Benign liver cyst 05/24/2010 CT scan at [facility] 11/2009 and 04/2010 showe 4 mm increase in size . No pain. No elevated LFTs on 03/11/2010. - Calculus of kidney 05/17/[address] Nicolas: Hospitalized age 20, a nd again later -- no procedures so far ([facility], [facility], [facility]) - Cancer (HCC) - Diverticulosis - [...] Approx. 3 cigarettes daily-1 pack every w zuni Substance Use Topics - Alcohol use: Yes [...] May 28, 2020 TIME: 12:15 PM CSN: [id number] history physical on 2020-05-25 HISTORY HNO ID: [id number] Normal 05-25-2020 [place] PHYSICAL Author: Maggi Flores MD General Service: Hospital Medicine Medical Author Type: Resident Center Type: [facility] ([id number]) Filed: 05/25/2020 5:42 PM Note Text: Attestation [...] PM: You may reach the House Medicine international freight forwarder currently assigned to this patient by findin g their pager number on the treatment team (they will be assigned as the i ntern or resident). It is the last four digits in the phone number be ginning with ([phone]). We encourage the use of Epic Secure [...] Benign liver cyst 05/24/2010 CT scan at [facility] 11/2009 and 04/2010 showe 4 mm increase in size . No pain. No elevated LFTs on 03/11/2010. - Calculus of kidney 05/17/[address] Nicolas: Hospitalized age 20, and again later -- no procedures so far ([facility], [facility], [facility]) - Cancer (HCC) - Diverticulosis - [...] Approx. 3 cigarettes daily-1 pack every w zuni Substance Use Topics - Alcohol use: Yes [...] Immature Grans 0.09 0.00-0.05 thou/cmm High 05-25-2020 [facility] (00 000) Comment: Performed By: #### CBCD1 ### # [place] [address] Abs Neut (ANC) 3.14 1.56-6.13 thou/cmm Normal 05-25-2020 [facility] (55422) Comment: Performed By: #### CBCD1 ### # [facility] [address] [place], [place] [address] Abs. Baso 0.06 0.01-0.08 thou/cmm Normal 05-25-2020 [facility] (67363) Comment: Result Comment: Smear scanne d; tech agrees with automated differential Performed By: #### CBCD1 ### # [facility] [address] [place], [place] [address] Abs. [place] 0.50 0.27-0.70 thou/cmm Normal 05-25-2020 [facility] (10893) Comment: Performed By: #### CBCD1 ### # [facility] [address] [place], [place] [address] Basophils/100 WBC (Bld) 0.7 % Normal 2019 [facility] (04940) Comment: Performed By: #### CBCD1 ### # [facility] [address] [place], [place] [address] Eosinophils (Bld) 0.30 0.00-0.31 thou/cmm Normal 05-25-2020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 [3230016] Order #: [id number]: 1 FUTURE IV DISCONTINUE [1573459] Order #: [id number]: 1 FUTURE INSERT IV ([place]) [3760715] Order #: [id number]: 1 EGD [1518292] Order #: [id number] FUTURE COLONOSCOPY - DIAGNOSTIC [0085978] Order #: [id number] FUTUR E CELIAC DISEASE PANEL [7814448] Order #: [id number] FUTURE IGG SUBCLASSES BLD [SQIGGSUB] Order #: [id number] FUTURE US ABD RT UPPER QUADRANT [5679500] Order #: [id number] FUTUR E metroNIDAZOLE (FLAGYL) 500 mg tabletTake [...] AND PRE-OPERATIVE COVID [SQPOCOVD] Order #: [id number] FUTURE Prescriptions as of 04/26/2020 Sig: DIPHENHYDRAMINE [...] take a taxi or bus, or leave [facility] ALONE. If you do not have a responsible regional refrigerated cdl truck driver (famil y member or friend) with [...] the prescription bowel preparation solution at your [facility] or drugstore pharmacy. 08/2019 Bowel Preparation [...] on 2020-04-26 CNCO Letter Text Normal 04-26-2020 [facility] ([id number]) cnpn on 2020-04-19 CNPN Telephone (FAMPWS) Normal 04-19-2020 [facility] SALLY MCGREGOR ([id number]) 1980 [facility] Date Time Provider Department ([id number]) 04/19/20 [facility] During your visit today, we recorded the following informati on about you: Christopher Carcamo RN 04/19/2020 10:49 AM Signed Faxed GI referral and demographics to [facility], per patient request. . Allergies As [...] Assessed Reason for Visit: Faxed to [facility] [Other] Prescriptions as of 04/19/2020 Sig: [...] on 2020-04-18 CNPN Telephone (FAMPWS) Normal 04-18-2020 [facility] SALLY MCGREGOR ([id number]) 1980 [facility] Date Time Provider Department ([id number]) 04/18/20 [facility] During your visit today, we recorded the following informati on about you: Yvette Huffman RN 04/18/2020 2:01 PM Signed Pt called, verified by name and birthdate. Pt wants to know if she can see a GI doctor. Reviewed pt's chart and she has a GI con sult with GI group in [place]. Pt verbalized understanding, states she will call to make ap t Yvette Huffman RN Allergies As of Date: 04/18/2020 Noted Allergy Reaction PENICILLINS 12/07/2009 2 - Rash ASA (SALICYLATES) 01/27/2011 14 - Other: See Comments Comments: ulcers CONTRAST DYE (IODINE) 05/17/2008 12 - Shortness of Breath FLAGYL (METRONIDAZOLE HCL) 03/11/2010 12 - Shortness of [place] th IBUPROFEN 06/18/2016 8 - GI Upset PREDNISONE 06/18/2016 14 - Other: See Comments Comments: makes agitated and mean Date Reviewed: 02/23/2020 Reviewed by: Marcelino Mejia - Fully Assessed Reason for Visit: Patient Question [3947] Prescriptions as of 04/18/2020 Sig: TOPIRAMATE 50 [...] on 2020-04-16 CNPN Telephone (FAMSkylerWS) Normal 04-16-2020 [facility] SALLY MCGREGOR ([id number]) 1980 [facility] Date Time Provider Department ([id number]) 04/16/20 [facility] During your visit today, we recorded the following informati on about you: Edwina Tatum SPANISH INTERPRETER 04/16/2020 11:38 AM Signed Pt calls to report she went to [facility] ER 04/12. Pt reports she went [...] (METRONIDAZOLE HCL) 03/11/2010 12 - Shortness of [place] th IBUPROFEN 06/18/2016 8 - GI Upset [...] on 2020-03-29 CNPN Telephone (FAMPWS) Normal 03-29-2020 [facility] SALLY MCGREGOR ([id number]) 1980 [facility] Date Time Provider Department ([id number]) 03/29/20 [facility] During your visit today, we recorded the following informati on about you: Melanie Debby HERNANDEZ 03/29/2020 10:06 AM Signed Patient calling crying constantly, so congested from a ll the crying, can not get appt with [facility] will not take her insurance. [facility] will not take any new patients [...] AM Signed 1. Can we confirm that [place] [facility] at [facility] doesn't take her insurance. If they don't take her insurance then we ca n see if can get her in with Dr. Church since he is back in [facility] now. 2. Find out how long [...] she can't take ibuprof en). TC to [facility] and had to leave message for them to return call regarding if they accept patient's insurance. Instructed the m to give patient's name when they return the call so we can document. Lorenzo Vu 03/29/2020 12:49 PM Signed Giulia / [facility] returned call stating the y do not take [place]; provider is not credentialed with them yet. [...] muscle relaxer for her migraines. Pharmacy is [facility]. Please review and advise. [...] (METRONIDAZOLE HCL) 03/11/2010 12 - Shortness of [place] th IBUPROFEN 06/18/2016 8 - GI Upset [...] 2020-03-28 CNPN Telephone (FAMWS) Normal 03-28-2020 [facility] SALLY MCGREGOR ([id number]) 1980 [facility] Date Time Provider Department ([id number]) 03/28/20 MARCELINO MEJIA During your visit today, [...] OBSOLETE Refill (FAMPWS) Normal 03-27-2020 Isaías veland [facility] SALLY MCGREGOR ([id number]) 1980 [facility] Date Time Provider Department ([id number]) 03/27/20 MARCELINO MEJIA FAMPWS During your visit [...] on 2020-03-27 CNPN Telephone (FAMPWS) Normal 03-27-2020 [facility] SALLY MCGREGOR ([id number]) 1980 [facility] Date Time Provider Department ([id number]) 03/27/20 MARCELINO MEJIA During your visit today, we recorded the following informati on about you: Yvette Huffman RN 03/27/2020 10:59 AM Signed Pt called, verified by name and birthdate. Pt states s he went to [facility] ER last night for a migraine and had a CT scan. Pt wants PCP to review ER records. Pt wants referral to neurology. Order pended. When signed pleas e fax to [facility] at [facility] per pt request Yvette Murphy Ma 03/27/2020 12:20 PM Signed ER reports on PCP's desk to review. Jessica Zhou, RN, RN 03/27/2020 1:37 PM Signed Pt calls, asking what the diagnosis was on the ER note. Pt states she was told air bubble, tumor States Imitrex is not working. Has already taken 2 today. Wa iting on [facility] to call her back Pt asking [...] referral placed and can be faxed to [facility]. Let patient know th e CT [...] referred to. See needs to contact her direct care specialist to get the help see nee ds as instructed on 03/22/2020, otherwise our hands are tied. Jessica Murphy Ma 03/27/2020 2:29 PM Signed Pt notified and voiced understanding. Referral and Dem o faxed to [facility]. Jessica Murphy Ma Allergies As [...] [G43.009] Order(s):CONSULT TO NEUROLOGY [9019] Order #: [id number]: 1 FUTURE Prescriptions as of 03/27/2020 Sig: [...] 03/27/20 progress on 2020-03 PROGRESS HNO ID: [id number] Normal 03-22-2020 [facility] Author: Isabel (Maya) Hugo Mata ([id number]) Service: ? Author Type: Physician Gas Plant Worker Type: Progress Notes Filed: 03/22/2020 9:50 AM [...] to rides. States she couldn't go to [place] for her cardiac testing but continues to [...] 11-20 minutes cnpn on 2020-03-22 CNPN Telephone ([facility]) Normal 03-22-2020 [facility] TOSHIASALLY TORRES ([id number]) 1980 [facility] Date Time Provider Department ([id number]) 03/22/20 ISABEL ARIAS) RAMA During your visit today, we recorded the following informati on about you: ISABEL ARIAS PA-C 03/22/2020 9:43 AM Signed Please let patient know that this is info I have received from in regards to rides: The last I knew, most of them were back up and running. I do know that [facility] [employer] has been continuing with their ride assistance and are taking people to their appts. I would sa y they need to check now with insurance to see if able to set up ride. The patient could also see if they can request a direct care specialist through their Medicaid Managed Care p maria esther. I have patients that have Medicaid plan and their care managers a re able to assist them setting up services. Having a direct care specialist through insu eve is great because they [...] again. I advised her that she contact [place] and request more help from her direct care specialist. Allergies As of Date: 03/22/2020 Noted Allergy [...] Encounter Status:Closed by ISABEL WARE on 03/22/20 [facility] Normal 03-08-2020 [facility] SALLY Martinez ([id number]) 1980 [facility] Date Time Provider Department ([id number]) 03/08/20 [facility] During your visit today, we recorded [...] transfer to scheduling and while waiting for sealer aircraft which was awhile, pt dropped call. Attempted [...] (METRONIDAZOLE HCL) 03/11/2010 12 - Shortness of [place] th IBUPROFEN 06/18/2016 8 - GI Upset [...] on 2020-03-05 CNPN Telephone (FAMWS) Normal 03-05-2020 [facility] BENJIShivaSALLY ([id number]) 1980 [facility] Date Time Provider Department ([id number]) 03/05/20 [facility]JIA [facility] During your visit today, we recorded the following informati on about you: Sallie Benitez SPANISH INTERPRETER 03/05/2020 1:58 PM Signed Patient is scheduling [...] on 03/06/20 CNPN Telephone (FAMPWS) Normal 03-05-2020 [facility] SALLY MCGREGOR ([id number]) 1980 [facility] Date Time Provider Department ([id number]) 03/05/20 MARCELINO MEJIA During your visit today, we recorded the following informati on about you: Melanie Debby SPANISH INTERPRETER 03/05/2020 2:16 PM Signed Patient calling would like sealer aircraft to call her back to set up [...] 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 vic stated [facility]. Verified that we have [facility] and MRI schedul ed here on 03/19. -Marry Xavi Pss Allergies As of Date: 03/05/2020 Noted Allergy Reaction PENICILLINS 12/07/2009 2 - Rash ASA (SALICYLATES) 01/27/2011 14 - Other: See Comments Comments: ulcers CONTRAST DYE (IODINE) 05/17/2008 12 - Shortness of Breath FLAGYL (METRONIDAZOLE HCL) 03/11/2010 12 - Shortness of [place] th IBUPROFEN 06/18/2016 8 - GI Upset PREDNISONE 06/18/2016 14 - Other: See Comments Comments: makes agitated and mean Date Reviewed: 02/23/2020 Reviewed by: Marcelino A Roosevlet - Fully Assessed Reason for Visit: please [...] on 2020-02-28 CNPN Telephone (FAMPWS) Normal 02-28-2020 [facility] SALLY Martinez ([id number]) 1980 [place] [facility] Date Time Provider Department ([id number]) 02/28/20 [facility] During your visit today, we recorded the following informati on about you: Janneth Zhou, RN, RN 02/28/2020 10:41 AM Signed Pt calls for ER F/U appt. States she was at [facility] ER on 02/24 after reportidly [...] XR CHEST 1 VIEW ORIGINAL Normal 02-25-2020 [facility] XR CHEST 1 VIEW Foun dation ([place]) (68493) CLINICAL STATEMENT: Chest pain COMPARISON: 04/06/2006 FINDINGS: [...] Troponin I.cardiac <0.020 0.000-0.040 ng/mL Normal 0 [place] [employer] [Mass/Vol] [place] ([place]) (29600) Comment: Result Comment: Troponin I r eference range: 0.00-0.040 ng/mL Negative an d non-diagnostic. >0.040 ng/mL Consistent with cardiac damage, increased clinical risk and possibility of myocardial in farction. Serial measurements, a rise & fall in test results, clinical histo ry, appropriate symptoms and/or ECG changes may help assess possibility of ME. *Other non-acute coronary sy ndrome conditions such as CHF, myoc arditis, pulmonary emboli, sepsis and cardiac surgery could result in myoc ardial damage and increased troponi n levels. Performed By: #### CBC, ADIF F, ANEU, BMP, GFR #### [address] [address] mg on 2020-02-25 Magnesium [Mass/Vol] 2.0 1.8-2.4 mg/dL Normal 0 [facility] ([place]) (0000 0) Comment: Performed By: #### CBC, ADIF F, ANEU, BMP, GFR #### [address] [address] lip on 2020-02-25 Lipase Level 562 73-393 U/L High 02-25-2020 [facility] ([place]) (34005) Comment: Performed By: #### CBC, ADIF F, ANEU, BMP, GFR #### [address] [address] cmp on 2020-02-25 Albumin [Mass/Vol] 4.1 3.5-5.0 G/dL Normal 02-25-2020 [facility] ([place]) (80019) Comment: Performed By: #### CBC, ADIF F, ANEU, BMP, GFR #### [address] [address] Albumin/Globulin [Mass 1.2 1.1-2.5 ratio Normal [address] [place] [address]] [facility] ([place]) (17328) Comment: Performed By: #### CBC, ADIF F, ANEU, BMP, GFR #### [address] [address] ALP [Catalytic activity/Vol] 98 40-135 U/L Normal 0 02-25-2020 [facility] ([place]) (0000 0) Comment: Performed By: #### CBC, ADIF F, ANEU, BMP, GFR #### [address] [address] ALT [Catalytic activity/Vol] 30 10-35 U/L Normal 0 02-25-2020 [facility] ([place]) (0000 0) Comment: Performed By: #### CBC, ADIF F, ANEU, BMP, GFR #### [address] [address] AST [Catalytic activity/Vol] 15 10-40 U/L Normal 0 02-25-2020 [facility] ([place]) (0000 0) Comment: Performed By: #### CBC, ADIF F, ANEU, BMP, GFR #### [address] [address] Bili Total 0.4 0.2-1.0 mg/dL Normal 02-25-2020 [facility] ([place]) (13816) Comment: Result Comment: Use of this assay is not recommended for patients undergoing treatment with eltrombopag d ue to the potential for falsely elevated results. Performed By: #### CBC, ADIF F, ANEU, BMP, GFR #### [address] [address] Calcium [Mass/Vol] 8.9 8.4-10.2 mg/dL Normal 02-25-2020 [facility] ([place]) (0000 0) Comment: Performed By: #### CBC, ADIF F, ANEU, BMP, GFR #### [address] [address] Chloride [Moles/Vol] 104 98-107 mmol/L Normal 0 [facility] ([place]) (0000 0) Comment: Performed By: #### CBC, ADIF F, ANEU, BMP, GFR #### [address] [address] CO2 [Moles/Vol] 28 22-29 mmol/L Normal 02-25-2020 [facility] ([place]) (56289) Comment: Performed By: #### CBC, ADIF F, ANEU, BMP, GFR #### [address] [address] Creatinine [Mass/Vol] 1.01 0.55-1.02 mg/dL Normal 02-25-20 20 [facility] ([place]) (62791) Comment: Performed By: #### CBC, ADIF F, ANEU, BMP, GFR #### [address] [address] Electrolyte Balance 9.0 mEq/L Normal 02-25-2020 [facility] ([place]) (63185) Comment: Performed By: #### CBC, ADIF F, ANEU, BMP, GFR #### [address] [address] Globulin (S) [Mass/Vol] 3.4 G/dL Normal 2019 [facility] ([place]) (71511) Comment: Performed By: #### CBC, ADIF F, ANEU, BMP, GFR #### [address] [address] Glucose [Mass/Vol] 112 70-105 mg/dL High 02-25-2020 [facility] ([place]) (31771) Comment: Performed By: #### CBC, ADIF F, ANEU, BMP, GFR #### [address] [address] Potassium [Moles/Vol] 3.7 3.5-5.1 mmol/L Normal 02-25-20 [facility] ([place]) (0000 0) Comment: Performed By: #### CBC, ADIF F, ANEU, BMP, GFR #### [address] [address] Protein [Mass/Vol] 7.5 6.4-8.2 G/dL Normal 02-25-2020 [facility] ([place]) (15696) Comment: Performed By: #### CBC, ADIF F, ANEU, BMP, GFR #### [address] [address] Sodium [Moles/Vol] 141 136-145 mmol/L Normal 02-25-2020 [facility] ([place]) (0000 0) Comment: Performed By: #### CBC, ADIF F, ANEU, BMP, GFR #### [address] [address] Urea nitrogen [Mass/Vol] 21 7-18 mg/dL High 02-24 [facility] ([place]) (30036) Comment: Performed By: #### CBC, ADIF F, ANEU, BMP, GFR #### [address] [address] Urea nitrogen/Creatinine [Mass 21 7-27 ratio Normal 02-25-2020 [facility]] [facility] ([place]) (23282) Comment: Performed By: #### CBC, ADIF F, ANEU, BMP, GFR #### [address] [address] cbc on 2020-02-25 Erythrocyte distribution 14.9 11.5-14.5 % High 02-24 [facility] width (RBC) [Ratio] ([place]) (57415) Comment: Performed By: #### CBC, ADIF F, ANEU, BMP, GFR #### [place] [address] Hematocrit (Bld) [Volume 35.9 37.0-47.0 % Low 02-24 [facility] fraction] ([place]) (0000 0) Comment: Performed By: #### CBC, ADIF F, ANEU, BMP, GFR #### [place] [address] Hemoglobin (Bld) 11.8 12.0-16.0 G/dL Low 02-25-2020 [facility] [Mass/Vol] ([place]) (000 00) Comment: Performed By: #### CBC, ADIF F, ANEU, BMP, GFR #### [place] [id number] MCH (RBC) [Entitic mass] 29.5 27.0-31.2 pg Normal 02-24 [facility] ([place]) (0000 0) Comment: Performed By: #### CBC, ADIF F, ANEU, BMP, GFR #### [place] [id number] MCHC (RBC) [Mass/Vol] 32.9 33.0-37.0 G/dL Low 02-25-20 20 [facility] ([place]) (0000 0) Comment: Performed By: #### CBC, ADIF F, ANEU, BMP, GFR #### [place] [id number] MCV (RBC) [Entitic vol] 89.9 80.0-94.0 fL Normal 2019 [facility] ([place]) (0000 0) Comment: Performed By: #### CBC, ADIF F, ANEU, BMP, GFR #### [place] [address] Platelet mean volume 9.2 7.4-10.4 fL Normal 0 [facility] (d) [Entitic vol] ([place]) (92887) Comment: Performed By: #### CBC, ADIF F, ANEU, BMP, GFR #### [place] [address] Platelets (Bld) [#/Vol] 265 130-400 10 3/mcL Normal 2019 [facility] ([place]) (70277) Comment: Performed By: #### CBC, ADIF F, ANEU, BMP, GFR #### [place] [address] RBC (Bld) [#/Vol] 4.00 4.20-5.40 10 6/mcL Low 02-25-2020 A [facility] ([place]) (0000 0) Comment: Performed By: #### CBC, ADIF F, ANEU, BMP, GFR #### [place] [address] WBC (Bld) [#/Vol] 9.90 4.60-10.80 10 3/mcL Normal 02-25-2020 [facility] ([place]) (21659) Comment: Performed By: #### CBC, ADIF F, ANEU, BMP, GFR #### [place] [address] .neuabs on Neutrophils (Bld) 6.00 2.85-6.16 10 3/mcL Normal 02-25-2020 A [facility] [#/Vol] [facility] ([place]) (72221) Comment: Performed By: #### CBC, ADIF F, ANEU, BMP, GFR #### [address] [address] .gfr on 2020-02-25 GFR Non- 61 ml/min/1.73sqm Normal 02-25-2020 [facility] ([place]) (67736) Comment: Result Comment: GFR Population mean for Afri can Iraqi, Non- Americans Ages 20-29 = 116 mL/min/1.73 [...] CBC, ADIF F, ANEU, BMP, GFR #### [address] [address] GFR 74 ml/min/1.73sqm Normal 02-12 [facility] ([place]) (0000 0) Comment: Result Comment: GFR Population mean for Afri can Iraqi, Non- Americans Ages 20-29 = 116 mL/min/1.73 [...] CBC, ADIF F, ANEU, BMP, GFR #### [address] [address] .auto diff on 02-24 Ammonia (P) [Mass/Vol] 0.60 0.15-1.00 10 3/mcL Normal 020 [facility] ([place]) (23268) Comment: Performed By: #### CBC, ADIF F, ANEU, BMP, GFR #### [address] [address] Basophils (Bld) 0.00 0.00-0.19 10 3/mcL Normal 02-25-2020 [facility] [#/Vol] [facility] ([place]) (60734) Comment: Performed By: #### CBC, ADIF F, ANEU, BMP, GFR #### [address] [address] Basophils/100 WBC (Bld) 0.2 0.0-2.5 % Normal 2019 [facility] ([place]) (0000 0) Comment: Performed By: #### CBC, ADIF F, ANEU, BMP, GFR #### [address] [address] Eosinophils (Bld) 0.30 0.00-0.40 10 3/mcL Normal 02-25-2020 [facility] [#/Vol] [facility] ([place]) (35549) Comment: Performed By: #### CBC, ADIF F, ANEU, BMP, GFR #### [address] [address] Eosinophils/100 WBC (Bld) 3.5 0.0-7.0 % Normal 02-12 [facility] ([place]) (0000 0) Comment: Performed By: #### CBC, ADIF F, ANEU, BMP, GFR #### [address] [address] Lymphocytes (Bld) 2.90 0.77-3.85 10 3/mcL Normal 02-25-2020 [facility] [#/Vol] [facility] ([place]) (73923) Comment: Performed By: #### CBC, ADIF F, ANEU, BMP, GFR #### [address] [address] Lymphocytes/100 WBC (Bld) 28.9 10.0-50.0 % Normal 02-12 [facility] ([place]) (97674) Comment: Performed By: #### CBC, ADIF F, ANEU, BMP, GFR #### [address] [address] Monocytes/100 WBC (Bld) 6.3 1.7-13.0 % Normal 2019 [facility] ([place]) (0000 0) Comment: Performed By: #### CBC, ADIF F, ANEU, BMP, GFR #### [facility] [address] [place] [address] Neutrophils/100 WBC (Bld) 61.1 37.0-80.0 % Normal 02-12 [facility] ([place]) (81009) Comment: Performed By: #### CBC, ADIF F, ANEU, BMP, GFR #### [facility] [address] [place] [address] progress on 2020-02 PROGRESS HNO ID: [id number] Normal 02-23-2020 [facility] Author: Marcelino Mejia [facility] ([id number]) Service: ? Author Type: Physician Type: Progress [...] on 2020-02-20 CNPN Telephone (FAMPWS) Normal 02-20-2020 [facility] SALLY MCGREGOR ([id number]) 1980 [facility] Date Time Provider Department (82006) 02/20/20 MARCELINO MEJIA During your visit today, we recorded the following informati on about you: Lexy Tapia RN 02/20/2020 8:40 AM Signed fyi- Patient calls to report to PCP that she was back in [facility] ER over weekend due to pain from Pancreatitis. Her level was 800, so they s ent me home. States she received Oxycodone and report s that it is not doing much to relieve her pain and wanted PCP aware that she was in ER again. Patient did not have phone number of [facility] to schedule f ollow up. This [...] (METRONIDAZOLE HCL) 03/11/2010 12 - Shortness of [place] th IBUPROFEN 06/18/2016 8 - GI Upset [...] Encounter Status:Closed by MARCELINO MEJIA on 02/20/20 [facility] Tele[facility] (FAMPWS) Normal 02-20-2020 [facility] SALLY MCGREGOR ([id number]) 1980 [facility] Date Time Provider Department (66810) 02/20/20 MARCELINO MEJIA [facility] During your visit today, we recorded the following informati on about you: Christopher Carcamo RN 02/20/2020 9:48 AM Signed Patient phoned crying and distraught, stating [facility], can not get her in until March. States she cannot take this pain anymore, her insurance will not cover anyone in [facility] When she was in the hospital [...] pain right now, she is upset because [facility] cannot see her until March. Asking if there is anything pcp can do to get her in sooner? Ple ase phone patient with reply. Marcelino Mejia MD 02/20/2020 10:15 AM Signed Let patient know the only op tions ar for her to go to [facility] ER to see if will be [...] has no one to take her to [place]. She said when she goes to [facility] the y just drug her up [...] Crying. She cannot get transport ation to [facility]. Insurance does not cover [facility] and do es not want to go back to [place] because they will just send h er home with meds and dope me up for 3-4 days. Johnathon SOTELO cannot get her an appointment until March . Will route to clerical gastro for schedu ling within [facility] - possibly [facility]. Marcelino Mejia MD 02/20/2020 12:34 PM Signed noted Augustina Vera RN DIRECTOR OF [email or web address].JAKI 02/20/2020 12:40 PM Signed I'd suggest that she go to [place] ED today. it w ould not be [...] she has no way of getting to [facility]. Pt states she does not th ink they take her insurance either. Spoke with PCP who suggested [facility]. Relayed message to pt, pt started yelling stating she has no transp ortation. States if she calls ambulance they will only take her within [facility]. Sta los her boyfriend [...] illness. Asking letter to be faxed to [phone]. Marcelino Mejia MD 02/20/2020 2:38 PM Signed Let patient know ER report from 02/18/2020 was reviewed and th e ER Physician wanted to keep but she preferred to go home and see if she c ould manage it there. Lorenzo Vu 02/20/2020 4:06 PM Signed Patient returned call, stating she went to [facility] ER today an d they discharged her because her level is less than 800. Reques ting something for pain, that Percocet helped some in past. No transportation to go anywhe re but [place] (?social media strategist to help with transportat ion). Does not [...] Signed Letter ready to be faxed to [phone]. Branden Sanders Ma 02/21/2020 8:24 AM Signed [...] Status:Closed by BRANDEN SANDERS MA on 02/21/20 [facility] Tele[facility] (FAMWS) Normal 02-20-2020 [facility] SALLY Martinez ([id number]) 1980 [facility] Date Time Provider Department ([id number]) 02/20/20 [facility] During your visit today, we recorded the following informati on about you: Melanie Debby HERNANDEZ 02/20/2020 2:25 PM Signed Patient calling wants note sent to PCP, she is currently i n [facility] ER. Patient said she has been [...] Encounter Status:Closed by MARCELINO MEJIA on 02/20/[facility]16 [facility] Telephone (UCWSTR) Normal 02-16-2020 [facility] SALLY Martinez ([id number]) 1980 [place] Date Time Provider Department (81771) 02/16/20 JESSICA JESUS) [facility] During your visit today, we [...] Telephone (FAMPWS) Normal 02-16-2020 [facility] SALLY Martinez ([id number]) 1980 [place] Date Time Provider Department ([id number]) 02/16/20 ISABEL ARIAS) [facility] During your visit [...] (METRONIDAZOLE HCL) 03/11/2010 12 - Shortness of [place] th IBUPROFEN 06/18/2016 8 - GI Upset [...] 02/16/20 progress on 2020-02 PROGRESS HNO ID: [id number] Normal 02-15-2020 [facility] Author: Marcelino Mejia Mata ([id number]) Service: ? Author Type: Physician Type: Progress Notes Filed: 02/15/2020 6:23 PM Note Text: Transitional Care Management Progress Note The patients TCM visit was performed within the 7 days of juev skinner TCM Eligibility Documentation The following information [...] at today?s visit. Patient was sen in [facility] ER on 02/01/2020 with C/O epigastric [...] being home. Patient was seen in the [facility] care yesterday for mouth sor es [...] nosis) - CONSULT TO GASTROENTEROLOGY: [facility] in [place] - Cont prn phenergan. 2. Tongue ulcer [...] 02-15-2020 [facility] activity/Vol] [place] and (21234) Comment: Performed By: #### HBA1C, TS H, LIPNF #### [facility] [address] [place], [place] [address] comp metabolic panel on 2020-02-15 Albumin [Mass/Vol] 4.6 3.9-4.9 g/dL Normal 02-15-2020 [facility] (12742) Comment: Performed By: #### HBA1C, TS H, LIPNF #### [place] [address] [place], [place] [address] ALP [Catalytic activity/Vol] 90 34-123 U/L Normal 0 02-15-2020 [facility] (51184) Comment: Performed By: #### HBA1C, TS H, LIPNF #### [facility] [address] [place], [place] [address] ALT [Catalytic activity/Vol] 6 7-38 U/L Low 0 02-15-2020 [facility] (15820) Comment: Performed By: #### HBA1C, TS H, LIPNF #### [facility] [address] [place], [place] [address] Anion gap [Moles/Vol] 13 9-18 mmol/L Normal 02-15-20 [facility] (92757) Comment: Performed By: #### HBA1C, TS H, LIPNF #### [facility] [address] [place], [place] [address] AST [Catalytic activity/Vol] 20 13-35 U/L Normal 0 02-15-2020 [facility] (54904) Comment: Performed By: #### HBA1C, TS H, LIPNF #### [facility] [address] [place], [place] [address] Bilirubin [Mass/Vol] 0.2 0.2-1.3 mg/dL Normal 0 [facility] (96356) Comment: Performed By: #### HBA1C, TS H, LIPNF #### [facility] [address] [place] [id number] Calcium [Mass/Vol] 10.2 8.5-10.2 mg/dL Normal 02-15-2020 [facility] (74794) Comment: Performed By: #### HBA1C, TS H, LIPNF #### [place] [address] Chloride [Moles/Vol] 100 97-105 mmol/L Normal 0 [facility] (79012) Comment: Performed By: #### HBA1C, TS H, LIPNF #### [facility] [place] [address] CO2 [Moles/Vol] 26 22-30 mmol/L Normal 02-15-2020 [facility] (45603) Comment: Performed By: #### HBA1C, TS H, LIPNF #### [facility] [place] 4[address] Creatinine [Mass/Vol] 0.92 0.58-0.96 mg/dL Normal 02-15-20 20 [facility] (60709) Comment: Performed By: #### HBA1C, TS H, LIPNF #### [facility] [place] 4[address] eGFR- Amer. >60 Normal 02-15-2020 [facility] (47053) Comment: Performed By: #### HBA1C, TS H, LIPNF #### [facility] [address] [place], [place] [address] GFR/1.73 sq M predicted >60 mL/min/{1.73_m2} Normal 02-15-2020 [facility] among non-blacks MDRD [place] (92246) (S/P/Bld) [Vol rate/Area] Comment: Result Comment: eGFR [...] By: #### HBA1C TS H, LIPNF #### [facility] [address] [place], [place] [address] Glucose [Mass/Vol] 89 74-99 mg/dL Normal 02-15-2020 [facility] (10077) Comment: Result Comment: The [place] Diabetes Association (ADA) provides guidance for cutoff [...] diabetes. Reference: Standards of [facility] Care in Diabetes 2016, [place] Diabetes Association. Diabetes Care. 2016.39(Suppl 1). Performed By: #### HBA1C, TS H, LIPNF #### [facility] [address] [place], [place] [address] Potassium [Moles/Vol] 3.7 3.7-5.1 mmol/L Normal 02-15-20 20 [facility] (49860) Comment: Performed By: #### HBA1C, TS H, LIPNF #### [facility] [address] [place], [place] [address] Protein [Mass/Vol] 7.8 6.3-8.0 g/dL Normal 02-15-2020 [facility] (29850) Comment: Performed By: #### HBA1C, TS H, LIPNF #### [facility] [address] [place], [place] [address] Sodium [Moles/Vol] 139 136-144 mmol/L Normal 02-15-2020 [facility] (63812) Comment: Performed By: #### HBA1C, TS H, LIPNF #### [facility] [address] [place], [place] [address] Urea nitrogen [Mass/Vol] 9 7-21 mg/dL Normal 02-14 [facility] (40077) Comment: Performed By: #### HBA1C, TS H, LIPNF #### [facility] [address] [place], [place] [address] cnov on 2020-02-15 CNOV Office Visit (FAMPWS) Normal 02-15-[address] [place] [address] [facility] SALLY MCGREGOR ([id number]) 1980 [facility] Date Time Provider Department ([id number]) 02/15/20 2:20 PM MARCELINO MEJIA FAMPWS During [...] at today?s visit. Patient was sen in [facility] ER on 02/01/2020 with C/O epigastric [...] being home. Patient was [facility] care yesterday f or mouth sores [...] diagnosis) - CONSULT TO GASTROENTEROLOGY: [facility] [place] - Cont prn phenergan. 2. Tongue ulcer [...] (METRONIDAZOLE HCL) 03/11/2010 12 - Shortness of [place] th IBUPROFEN 06/18/2016 8 - GI Upset PREDNISONE 06/18/2016 14 - Other: See Comments Comments: makes agitated and mean Date Reviewed: 02/15/2020 Reviewed by: Marcelino Mejia - Fully Assessed Reason for Visit: Transition Of Care [4074] Cmt: [facility] pancreatitis Reason For Visit History Recorded Primary Visit Diagnosis:Acute pancreatitis without infection or necrosis, unspecified pancreatitis type [K85.90] Other Visit Diagnoses:Tongue ulcer [K14.0] Poor dentition [K08.9] Thrush [B37.0] Order(s):CONSULT TO GASTROENTEROLOGY [9073] Order #: 1 [id number]: 1 FUTURE triamcinolone (KENALOG IN ORABASE) 0.1 [...] Baso 0.07 <0.11 k/uL Normal 02-15-2020 [facility] (73929) Comment: Performed By: #### HBA1C, TS H, LIPNF #### [facility] [address] [place], [place] [address] Abs [place] 0.53 <0.87 k/uL Normal 02-15-2020 [facility] (33279) Comment: Performed By: #### HBA1C, TS H, LIPNF #### [facility] [address] [place], [place] [address] Abs Neut 6.05 1.45-7.50 k/uL Normal 02-15-2020 [facility] (55621) Comment: Performed By: #### HBA1C, TS H, LIPNF #### [facility] [address] [place], [place] [address] Absolute nRBC <0.01 <0.01 Normal 02-15-2020 [facility] (78422) Comment: Performed By: #### HBA1C, TS H, LIPNF #### [facility] [place] [address] Basophils/100 WBC (Bld) 0.7 % Normal 2019 [facility] (96717) Comment: Performed By: #### HBA1C, TS H, LIPNF #### [facility] [address] [place] [address] DTYPE Auto Diff Normal 02-15-2020 [facility] (13942) Comment: Performed By: #### HBA1C, TS H, LIPNF #### [place] [address] Eosinophils (Bld) [#/Vol] 0.38 <0.46 k/uL Normal [facility] (98554) Comment: Performed By: #### HBA1C, TS H, LIPNF #### [facility] Labor[facility] s [facility] [place] [address] Eosinophils/100 WBC (Bld) 3.9 % Normal [facility] (22541) Comment: Performed By: #### HBA1C, TS H, LIPNF #### [facility] [place] [address] Erythrocyte distribution 14.7 11.5-15.0 % Normal 02-14 [facility] width (RBC) [Ratio] [place] ([id number]) Comment: Performed By: #### HBA1C, TS H, LIPNF #### [facility] Labor[facility]ie s [address] [place], [place] [address] Hematocrit (Bld) [Volume 40.4 36.0-46.0 % Normal 02-14 [facility] (43022) Comment: Performed By: #### HBA1C, TS H, LIPNF #### [address] [address] Hemoglobin (Bld) 12.0 11.5-15.5 g/dL Normal 02-15-2020 [facility] [Mass/Vol] [place] (80491) Comment: Performed By: #### HBA1C, TS H, LIPNF #### [place] [address] Lymphocytes (Bld) [#/Vol] 2.77 1.00-4.00 k/uL Normal [facility] (08286) Comment: Performed By: #### HBA1C, TS H, LIPNF #### [address] [address] Lymphocytes/100 WBC (Bld) 28.3 % Normal [facility] (37356) Comment: Performed By: #### HBA1C, TS H, LIPNF #### [address] [address] MCH (RBC) [Entitic mass] 28.6 26.0-34.0 pG Normal 02-14 [facility] (25812) Comment: Performed By: #### HBA1C, TS H, LIPNF #### [address] [address] MCHC (RBC) [Mass/Vol] 29.7 30.5-36.0 g/dL Low 02-15-20 [facility] (55355) Comment: Performed By: #### HBA1C, TS H, LIPNF #### [address], [place] [address] MCV (RBC) [Entitic vol] 96.4 80.0-100.0 fL Normal 02-14 [facility] (32718) Comment: Performed By: #### HBA1C, TS H, LIPNF #### [facility] Labor[facility] s [address] [place], [place] [address] Monocytes/100 WBC (Bld) 5.4 % Normal 2019 [facility] (82570) Comment: Performed By: #### HBA1C, TS H, LIPNF #### [facility] [address] [place], [place] [address] Neutrophils/100 WBC (Bld) 61.7 % Normal [facility] (36326) Comment: Performed By: #### HBA1C, TS H, LIPNF #### [facility] [address] [place], [place] [address] NRBCs 0.0 0 /100 WBC Normal 02-15-2020 [facility] (21107) Comment: Performed By: #### HBA1C, TS H, LIPNF #### [facility] [address] [place], [place] [address] Platelet mean volume 10.6 9.0-12.7 fL Normal 0 [facility] (Bld) [Entitic vol] [place] (43769) Comment: Performed By: #### HBA1C, TS H, LIPNF #### [facility] Labor[facility] s [address] [place], [place] [address] Platelets (Bld) [#/Vol] 435 150-400 k/uL High 2019 [facility] (14657) Comment: Performed By: #### HBA1C, TS H, LIPNF #### [facility] Labor[facility] s [address] [place], [place] [address] RBC (Bld) [#/Vol] 4.19 3.90-5.20 m/uL Normal 02-15-2020 [facility] (20800) Comment: Performed By: #### HBA1C, TS H, LIPNF #### [facility] Labor[facility] s [address] [place], [place] [address] WBC (Bld) [#/Vol] 9.80 3.70-11.00 k/uL Normal 02-15-2020 [facility] (67894) Comment: Performed By: #### HBA1C, TS H, LIPNF #### [facility] Labor[facility] s [address] [place], [place] [address] amylase on Amylase [Catalytic 52 30-104 U/L Normal 02-15-2020 [facility] activity/Vol] [place] and (61833) Comment: Performed By: #### HBA1C, TS H, LIPNF #### [facility] Laboratorie s [address] [place], [place] [address] progress on 2020-02 PROGRESS HNO ID: [id number] Normal 02-14-2020 [facility] Author: Jessica Coppola) [facility] [place] ([id number]) Service: ? Author Type: Physician Gas Plant Worker Type: Progress Notes Filed: 02/14/2020 1:14 PM Note Text: This note was created using SumUpriter. Subjective Sally Mcgregor is a 39 year [...] Benign liver cyst 05/24/2010 CT scan at [facility] 11/2009 and 04/2010 showe 4 mm increase in size . No pain. No elevated LFTs on 03/11/2010. - Calculus of kidney 05/17/[address] Nicolas: Hospitalized age 20, and again later -- no procedures so far ([facility], [facility], 1995 [facility]) - Dysmenorrhea - Impaired fasting glucose [...] MG DAILY September 02, 2019 5:34am 09-02-2019 [facility] ([id number]) - ondansetron orally disintegrating (ZOFRAN ODT) 4 [...] Approx. 3 cigarettes daily-1 pack every w [place] Substance Use Topics - Alcohol use: Yes [...] Sp. Request/Comment: - Swab Critical ly 02-14-2020 [facility] abnormal [place] Culture Result - Few Neris glabrata --> ABNORMAL ALERT (47023) Comment: Performed By: #### HBA1C, TS H, LIPNF #### [facility] Labor[facility] s [address] [place] [address] cnov on 2020-02-14 CNOV Office Visit (UCWSTR) Normal 02-14-20 [place] [facility] SALLY MCGREGOR ([id number]) 1980 [facility] Date Time Provider Department ([id number]) 02/14/20 12:45 PM JESSICA JESUS (CHAZ) UCWSTR [...] Benign liver cyst 05/24/2010 CT scan at [facility] 11/2009 and 04/2010 showe 4 mm increase in size . No pain. No elevated LFTs on 03/11/2010. - Calculus of kidney 05/17/[address] Nicolas: Hospitalized age 20, a nd again later -- no procedures so far ([facility], [facility], 1995 [facility]) - Dysmenorrhea - Impaired fasting glucose [...] DAILY September 02, 2019 5:34am 12-20-2 019 [facility] (52505) - ondansetron orally disintegrating (ZOFRAN ODT) 4 [...] ABDOM HYSTERECTOMY 08/31/06 Hysterectomy, [facility] FAMILY HISTORY Problem Relation Age [...] Approx. 3 cigarettes daily-1 pack every w [place] Substance Use Topics - Alcohol use: Yes [...] (METRONIDAZOLE HCL) 03/11/2010 12 - Shortness of [place] th IBUPROFEN 06/18/2016 8 - GI Upset [...] mLRfl: 0 FUNGAL SCREEN [SQFUNGSC] Order #: [id number] Prescriptions as of 02/14/2020 Sig: PROMETHAZINE 25 [...] JESUS PA-C on 02/14/20 cnpn on 2020-02-13 [facility] (FAMWS) Normal 02-13-2020 [place] SALLY Martinze ([id number]) 1980 Donato Mata Date Time Provider Department ([id number]) 02/13/20 MARCELINO MEJIAPWS During your visit today, we recorded the following informati on about you: Christopher Carcamo RN 02/13/2020 10:27 AM Signed Patient reports she was discharged from [facility] yesterday, after a 4 day stay, for pancreatitis. Scheduled f/u visit with PA, for tomorro w. Patient asking note be sent to provider also. Reports she still has a sore on he r tongue, [facility] doctor was not concerned about it. [...] (METRONIDAZOLE HCL) 03/11/2010 12 - Shortness of [place] th IBUPROFEN 06/18/2016 8 - GI Upset PENICILLINS 12/07/2009 2 - Rash PREDNISONE 06/18/2016 14 - Other: See Comments Comments: makes agitated and mean Date Reviewed: 01/02/2020 Reviewed by: Ashley Lehman Ma - Fully Assessed Reason for Visit: [facility] visit [Other] Prescriptions as of 02/13/2020 [...] Encounter Status:Closed by ROXANNE PATEL on [facility] 2020-02-09 [facility] Normal 02-09-2020 [place] [facility] SALLY MCGREGOR ([id number]) 1980 [facility] Date Time Provider Department ([id number]) 02/09/20 [facility] During your visit today, we recorded [...] calls back, stating she is currently at [facility] ER. States she had labs done [...] 02/09/20 progress on 2020-01 PROGRESS HNO ID: [id number] Normal 02-08-2020 [facility] Author: Isabel Romero) Hugo Mata ([id number]) Service: ? Author Type: Physician Gas Plant Worker Type: Progress Notes Filed: 02/08/2020 10:57 AM [...] per patient report who presented to the [facility] ED on 02/01/20 with i ntermittent [...] seroquel and she has talked with [facility] office for what to do next. She has been taking oxycodone every 4 hours but has not need any yet today. Does mention a sore on her forearm. States getting worse. Red and hardened. 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 States she noticed it first in hospital. She is unable to send picture or have video conference. Is w illing to come to . HISTORY REVIEWED (electronic chart updated): - medical history - medications - allergies REVIEW OF SYSTEMS: As noted in HPI PHYSICAL EXAMINATION: [facility] 08/10/2006 No vitals taken. Deferred physical [...] minutes progress on 2020-01 PROGRESS HNO ID: [id number] Normal 02-07-2020 [facility] Author: Yvette Huffman RN [place] ([id number]) Service: ? Author Type: ? Type: Progress [...] might be hidden SUMMARY: -Pt discharged from [facility] on 02-05-2020. -Follow up appointment on [...] per patient report who presented to the [facility] ED on 02/01/20 with i ntermittent [...] CNPTOUTREACH Patient Outreach (FAMPWS) Normal 0 02-07-2020 [place] [facility] SALLY MCGREGOR ([id number]) 1980 [facility] Time Provider Department ([id number]) 02/07/20 MARCELINO MEJIA During your visit today, [...] might be hidden SUMMARY: -Pt discharged from [facility] on 02-05-2020. 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, Migraines, Known Lung Nodules, Hx Uteri ne CA, Hx Nephrolithiasis, Tobacco use, Anxiety and Depression with Suspected Bipolar disorder recently starte d on seroquel and sertraline, Recent Dental ev aluation with Infection on clindamycin with planned upcoming removal in 4-6 week s per patient report who presented to the [facility] ED on 02/01/20 with intermittent epigastric [...] (METRONIDAZOLE HCL) 03/11/2010 12 - Shortness of [place] th IBUPROFEN 06/18/2016 8 - GI Upset [...] 02/07/20 emergency report on 2020-01-28 EMERGENCY REPORT [facility] Normal 01-27 [facility] EMERGENCY ROOM REPORT ([id number]) NAME ACCOUNT SEX AGE ADMIT DISCHARGE PT MED. RECORD# NUMBER DATE DATE TYPE SAM, [id number] F 39 01/20/20 01/21/20 [place] ZHENG [id number] ROOM: ER DATE OF : 1980 DICTATING [...] PHYSICAL EXAMINATION: Physic al examination reveals a wev-fcc-crisvofop female in no acute distress, resting c [...] plan for [facility]. Discussed the patient with Dr. Coleman at [facility], who accepted the patient for admission. The patient was transferred to [facility] in stable condition. Dictated By: Ana Alcantar MD 01/21/20 01:30 JOB #: [id number] Transcribed By: thanh 01/21/20 10:04 Electronically signed by: Jennifer Perez MD 01/28/20 00:29 Page 2 of 2 SALLY MCGREGOR Emergency Room Report myco on 2020-01-26 Mycoplasma IgG POS Normal 01-26-2020 [facility] ([place]) ([id number]) Comment: Result Comment: INTERPRETATI ON OF MYCOPLASMA [...] CBC, ADIF F, ANEU, BMP, GFR #### [place] [address] progress on 2020-01 PROGRESS HNO ID: [id number] Normal 01-25-2020 [facility] Author: Roxanne Patel MA ([id number]) Service: ? Author Type: Gas Engine Operator Generators Type: Progress Notes Filed: 01/25/2020 7:39 AM Note Text: Te made to get setup. Roxanne Patel MA cnpn on 2020-01-25 CNPN Telephone (FAMPWS) Normal 01-25-2020 [facility] SALLY MCGREGOR ([id number]) 1980 [facility] Date Time Provider Department ([id number]) 01/25/20 ISABEL ARIAS) [facility] During your visit today, we recorded the following informati on about you: Roxanne Patel MA, MA 01/25/2020 7:39 AM Signed Please help patient get setup for MRI. BROCK Fritz Pss 01/25/2020 11:05 AM Signed Attempted to reach patient and she does not have a voice m ail set up Trying to schedule an MRI of the Brain Milly Green [facility] 01/25/2020 3:35 PM Signed Spoke with patient [...] (METRONIDAZOLE HCL) 03/11/2010 12 - Shortness of [place] th IBUPROFEN 06/18/2016 8 - GI Upset [...] 01/26/20 progress on 2020-01 PROGRESS HNO ID: [id number] Normal 01-24-2020 [facility] Author: Isabel (Pa-Kimmie) Hugo Mata ([id number]) Service: ? Author Type: Physician Gas Plant Worker Type: Progress Notes Filed: 01/24/2020 4:03 PM [...] patient was to see pain specialist in [facility]. She has missed or cancelled appointments [...] over the weekend. She was transferred to [place] in [place]. Reports n ot available but patient states ECHO and labs were normal. . States she received a phone call from an [place] And was told negative for Covid. But [...] pharmacy. She did receive phone call from vacuum cleaner repair person last week and w ill be set up for heart monitor. She was suppose to have stress testing done at [facility] today and Carotid US done yesterday, [...] Benign liver cyst 05/24/2010 CT scan at [facility] 11/2009 and 04/2010 showe 4 mm increase in size . No pain. No elevated LFTs on 03/11/2010. - Calculus of kidney 05/17/[address] Nicolas: Hospitalized age 20, and again later -- no procedures so far ([facility], [facility], [facility]) - Dysmenorrhea - Impaired fasting glucose [...] ABDOM HYSTERECTOMY 08/31/06 Hysterectomy, [facility] Family History FAMILY HISTORY Problem [...] MG DAILY September 02, 2019 5:34am 09-02-2019 [facility] ([id number]) - ondansetron orally disintegrating (ZOFRAN ODT) 4 [...] mg capsule Take 1 capsule by mo iah daily at bedtime for 90 days. - [...] Approx. 3 cigarettes daily-1 pack every w [place] Substance Use Topics - Alcohol use: Yes [...] - ICD9: 786.59, ICD10: R07.89 Continue with vacuum cleaner repair person. Will attempt to get records to see [...] minutes covid on 2020-01-24 COVID 19 Result DOBBY LOOMS PEGGER See Below [facility] Normal 01-24-2020 [facility] ([place]) (0000 0) Comment: Result Comment: Negative Negative for COVID19 (SARS C oV2) by PCR. This test was developed and its performance characteristics determined by [facility]'s Johnnie Abreu Pathology [facility] [place]. This test has bee n authorized by [...] issued on November 12, 2019. Performed By: [facility] [employer] [address] Custom Home Installer: Raphael liriano III, M.D. CLIA#: [id number] Phone#: Performed By: #### CBC, ADIF F, ANEU, BMP, GFR #### [place] [address] COVID 19 Source DOBBY LOOMS PEGGER See Below Normal 01-24-2020 [facility] ([place]) ([id number]) Comment: Result Comment: Nasopharynge al Swab Performed By: [facility] [place] [address] Custom Home Installer: Raphael liriano III, M.D. CLIA#: [id number] Phone#: Performed By: #### CBC, ADIF F, ANEU, BMP, GFR #### [address] [address] myco on 2020-01-23 Mycoplasma IgM Negative Normal 01-23-2020 [facility] ([place]) ([id number]) Comment: Result Comment: INTERPRETATI ON OF MYCOPLASMA [...] CBC, ADIF F, ANEU, BMP, GFR #### [address] [address] crp on 2020-01-23 CRP [Mass/Vol] 0.57 <=0.80 mg/dL Normal 01-23-2020 [facility] ([place]) (52432) Comment: Performed By: #### CBC, ADIF F, ANEU, BMP, GFR #### [address] [address] cnpn on 2020-01-23 CNPN Telephone (FAMPWS) Normal 01-23-2020 [facility] SALLY MCGREGOR ([id number]) 1980 [place] Date Time Provider Department ([id number]) 01/23/20 ISABEL ARIAS (MAYA) FAMPWS During your visit today, we recorded the following informati on about you: Lexy Tapia RN 01/23/2020 8:55 AM Signed fyi-Patient calls to report that she went to [facility] with chest pain. Transferred to [facility] and Echo was normal. She will [...] Please reschedule her for later this w zuni so we have time to get the [...] insurance there is not Uber drivers in [facility] so waiting o n community action [...] Erythrocyte distribution 14.1 11.5-15.5 % Normal 01-22 [facility] (RBC) [Ratio] [facility] ([place]) (63731) Comment: Performed By: #### CBC, ADIF F, ANEU, BMP, GFR #### [address] [address] Hematocrit (Bld) [Volume 35.6 34.0-46.0 % Normal 01-22 [facility] fraction] ([place]) (0000 0) Comment: Performed By: #### CBC, ADIF F, ANEU, BMP, GFR #### [address] [address] Hemoglobin (Bld) 11.9 12.0-16.0 G/dL Low 01-23-2020 [facility] [Mass/Vol] ([place]) (000 00) Comment: Performed By: #### CBC, ADIF F, ANEU, BMP, GFR #### [address] [address] MCH (RBC) [Entitic mass] 30.0 27.0-33.0 pg Normal 01-22 [facility] ([place]) (0000 0) Comment: Performed By: #### CBC, ADIF F, ANEU, BMP, GFR #### [address] [address] MCHC (RBC) [Mass/Vol] 33.4 32.0-36.0 G/dL Normal 01-23-20 20 [facility] ([place]) (0000 0) Comment: Performed By: #### CBC, ADIF F, ANEU, BMP, GFR #### [address] [address] MCV (RBC) [Entitic vol] 89.8 80.0-99.0 fL Normal 2019 [facility] ([place]) (0000 0) Comment: Performed By: #### CBC, ADIF F, ANEU, BMP, GFR #### [place] [id number] Platelet mean volume 8.5 6.6-10.5 fL Normal 0 [facility] (Bld) [Entitic vol] ([place]) (81260) Comment: Performed By: #### CBC, ADIF F, ANEU, BMP, GFR #### [address] [address] Platelets (Bld) [#/Vol] 235 150-450 10 3/mcL Normal 2019 [facility] ([place]) (68274) Comment: Performed By: #### CBC, ADIF F, ANEU, BMP, GFR #### [address] [address] RBC (Bld) [#/Vol] 3.97 4.10-5.30 10 6/mcL Low 01-23-2020 A [facility] ([place]) (0000 0) Comment: Performed By: #### CBC, ADIF F, ANEU, BMP, GFR #### [address] [address] WBC (Bld) [#/Vol] 10.20 4.50-10.80 10 3/mcL Normal 01-23-2020 [facility] ([place]) (31226) Comment: Performed By: #### CBC, ADIF F, ANEU, BMP, GFR #### [address] [address] bmp on 2020-01-23 Creatinine [Mass/Vol] 0.94 0.50-1.20 mg/dL Normal 01-23-20 20 [facility] ([place]) (16649) Comment: Performed By: #### CBC, ADIF F, ANEU, BMP, GFR #### [address] [address] Urea nitrogen/Creatinine 20.2 10.0-22.0 ratio Normal 01-22 [facility] [Mass ratio] [facility] ([place]) (85005) Comment: Performed By: #### CBC, ADIF F, ANEU, BMP, GFR #### [address] [address] Calcium [Mass/Vol] 9.4 8.4-10.1 mg/dL Normal 01-23-2020 [facility] ([place]) (0000 0) Comment: Performed By: #### CBC, ADIF F, ANEU, BMP, GFR #### [address] [address] Chloride [Moles/Vol] 106 98-110 mEq/L Normal 0 [facility] ([place]) (0000 0) Comment: Performed By: #### CBC, ADIF F, ANEU, BMP, GFR #### [address] [address] CO2 [Moles/Vol] 28 22-32 mEq/L Normal 01-23-2020 [facility] ([place]) (18101) Comment: Performed By: #### CBC, ADIF F, ANEU, BMP, GFR #### [address] [address] Electrolyte Balance 6.0 4.0-15.0 mEq/L Normal 01-23-2020 [facility] ([place]) (0000 0) Comment: Performed By: #### CBC, ADIF F, ANEU, BMP, GFR #### [address] [address] Glucose [Mass/Vol] 91 70-110 mg/dL Normal 01-23-2020 [facility] ([place]) (26422) Comment: Performed By: #### CBC, ADIF F, ANEU, BMP, GFR #### [address] [address] Potassium [Moles/Vol] 4.2 3.5-5.0 mEq/L Normal 01-23-20 20 [facility] ([place]) (0000 0) Comment: Performed By: #### CBC, ADIF F, ANEU, BMP, GFR #### [address] [address] Sodium [Moles/Vol] 140 136-145 mEq/L Normal 01-23-2020 [facility] ([place]) (83359) Comment: Performed By: #### CBC, ADIF F, ANEU, BMP, GFR #### [address] [address] Urea nitrogen [Mass/Vol] 19.0 8.0-22.0 mg/dL Normal 01-22 [facility] ([place]) (97064) Comment: Performed By: #### CBC, ADIF F, ANEU, BMP, GFR #### [address] [address] .morph on 2020-01-13 1 Platelets (Bld) [#/Vol] Normal Normal 2019 [facility] ([place]) (85242) Comment: Result Comment: Few large pl atelets seen. Performed By: #### CBC, ADIF F, ANEU, BMP, GFR #### [address] [address] RBC morphology finding Nom Normal Normal [facility] (d) ([place]) (0000 0) Comment: Performed By: #### CBC, ADIF F, ANEU, BMP, GFR #### [address] [address] .manual diff on -01-22 Basophil %, Manual 0.0 0.0-2.5 % Normal 01-23-2020 [facility] ([place]) (10439) Comment: Performed By: #### CBC, ADIF F, ANEU, BMP, GFR #### [address] [address] Basophil, Abs Manual 0.00 0.00-0.27 10 3/mcL Normal 0 [facility] ([place]) (66532) Comment: Performed By: #### CBC, ADIF F, ANEU, BMP, GFR #### [address] [address] Cells Counted 100 Normal 01-23-2020 [facility] ([place]) (32930) Comment: Performed By: #### CBC, ADIF F, ANEU, BMP, GFR #### [address] [address] Eosinophil %, Manual 0.0 0.0-6.0 % Normal 0 [facility] ([place]) (81090) Comment: Performed By: #### CBC, ADIF F, ANEU, BMP, GFR #### [address] [address] Eosinophil, Abs Manual 0.00 0.00-0.65 10 3/mcL Normal 020 [facility] ([place]) (65967) Comment: Performed By: #### CBC, ADIF F, ANEU, BMP, GFR #### [place] [address] Lymphocyte %, Manual 16.0 20.0-40.0 % Low 0 [facility] ([place]) (17152) Comment: Performed By: #### CBC, ADIF F, ANEU, BMP, GFR #### [address] [address] Lymphocyte, Abs Manual 1.63 0.90-4.32 10 3/mcL Normal 020 [facility] ([place]) (24342) Comment: Performed By: #### CBC, ADIF F, ANEU, BMP, GFR #### [place] [id number] Monocyte %, Manual 5.0 2.0-13.0 % Normal 01-23-2020 [facility] ([place]) (83613) Comment: Performed By: #### CBC, ADIF F, ANEU, BMP, GFR #### [place] [id number] Monocyte, Abs Manual 0.51 0.09-1.40 10 3/mcL Normal 0 [facility] ([place]) (81775) Comment: Performed By: #### CBC, ADIF F, ANEU, BMP, GFR #### [address] [address] Neutrophil %, Manual 79.0 50.0-75.0 % High 0 [facility] ([place]) (14441) Comment: Performed By: #### CBC, ADIF F, ANEU, BMP, GFR #### [place] [address] Neutrophil, Abs Manual 8.06 2.25-8.10 10 3/[facility] Normal 020 [facility] ([place]) (50726) Comment: Performed By: #### CBC, ADIF F, ANEU, BMP, GFR #### [address] [address] .gfr on 2020-01-23 GFR >60 Normal 0 [facility] ([place]) (44649) Comment: Result Comment: GFR Population mean for Afri can Iraqi, Non- Americans Ages 20-29 = 116 mL/min/1.73 [...] CBC, ADIF F, ANEU, BMP, GFR #### [place] [address] GFR Non- >60 Normal 01-22 -2019 [facility] ([place]) (77328) Comment: Result Comment: GFR Population mean for Afri can Iraqi, Non- Americans Ages 20-29 = 116 mL/min/1.73 [...] CBC, ADIF F, ANEU, BMP, GFR #### [address] [address] spag on 2020-01-22 SPAG . Normal 01-22-2020 [facility] - Microbiology [facility] ([facility] (49437) PROCEDURE: Streptococcus Pneumoniae Urine Antig [^1 *1] [...] Locations *1: This test was performed at: [facility], [address] [place] [address], [address]- , [place] Comment: Performed By: #### CBC, ADIF F, ANEU, BMP, GFR #### [address] [address] respid on 2020-01-13 0 Adenovirus Not Detected Not Detected Normal 01-22-2020 [facility] ([place]) (0000 0) Comment: Performed By: #### CBC, ADIF F, ANEU, BMP, GFR #### [address] [address] Bordetella Not Detected Not Detected Normal 01-22-2020 [facility] ([place]) (56203) Comment: Performed By: #### CBC, ADIF F, ANEU, BMP, GFR #### [address] [address] Bordetella Pertussis Not Detected Not Detected Normal [facility] ([place]) (02687) Comment: Performed By: #### CBC, ADIF F, ANEU, BMP, GFR #### [address] [address] Chlamydophila Not Detected Not Detected Normal 01-22-2020 [facility] pneumoniae [facility] ([place]) (24555) Comment: Performed By: #### CBC, ADIF F, ANEU, BMP, GFR #### [address] [address] Coronavirus 229E Not Detected Not Detected Normal [facility] (Not COVID-19) [facility] ([place]) (96917) Comment: Performed By: #### CBC, ADIF F, ANEU, BMP, GFR #### [address] [address] Coronavirus HKU1 Not Detected Not Detected Normal 020 [facility]-19[facility] (64307[facility] Comment: Performed By: #### CBC, ADIF F, ANEU, BMP, GFR #### [address] [address] Coronavirus NL63 Not Detected Not Detected Normal 020 [facility] (Not COVID-19) [facility] [place]) (87029) Comment: Performed By: #### CBC, ADIF F, ANEU, BMP, GFR #### [address] [address] Coronavirus OC43 Not Detected Not Detected Normal 020 [facility] (Not COVID-19) [facility] [place]) (68359) Comment: Performed By: #### CBC, ADIF F, ANEU, BMP, GFR #### [place] [address] Human Metapneumovirus Not Detected Not Detected Normal [facility] ([place]) (69857) Comment: Performed By: #### CBC, ADIF F, ANEU, BMP, GFR #### [place] [address] Influenza A Not Detected Not Detected Normal 01-22-2020 A [facility] ([place]) (0000 0) Comment: Performed By: #### CBC, ADIF F, ANEU, BMP, GFR #### [place] [address] Influenza B Not Detected Not Detected Normal 01-22-2020 A [facility] ([place] (0000 0) Comment: Performed By: #### CBC, ADIF F, ANEU, BMP, GFR #### [place] [address] Mycoplasma Not Detected Not Detected Normal 01-22-2020 [facility] pneumoniae Foundatio n [place] (21219) Comment: Performed By: #### CBC, ADIF F, ANEU, BMP, GFR #### [place] [address] Parainfluenza 1 Not Detected Not Detected Normal 01-22-20 20 [facility] ([place] (96665) Comment: Performed By: #### CBC, ADIF F, ANEU, BMP, GFR #### [place] [address] Parainfluenza 2 Not Detected Not Detected Normal 01-22-20 20 [facility] ([place] (04556) Comment: Performed By: #### CBC, ADIF F, ANEU, BMP, GFR #### [place] [address] Parainfluenza 3 Not Detected Not Detected Normal 01-22-20 [facility] ([place] (41216) Comment: Performed By: #### CBC, ADIF F, ANEU, BMP, GFR #### [place] [address] Parainfluenza 4 Not Detected Not Detected Normal 01-22-20 [facility] ([place]) (92430) Comment: Performed By: #### CBC, ADIF F, ANEU, BMP, GFR #### [address] [address] Respiratory Not Detected Not Detected Normal 01-22-2020 A [facility] ([place]) (27966) Comment: Performed By: #### CBC, ADIF F, ANEU, BMP, GFR #### [address] [address] Rhinovirus/Enterovirus Not Detected Not Detected Normal 0 01-22-2020 [facility] ([place]) (35607) Comment: Performed By: #### CBC, ADIF F, ANEU, BMP, GFR #### [address] [address] sonali on 2020-01-22 SONALI . Normal 01-22-2020 [facility] MICRO - Microbiology [facility] ([place]) (89703) PROCEDURE: Legionella Urine Ag [*1] SOURCE: Urine [...] Locations *1: This test was performed at: [facility], [address] [place] [address], [address]- , [place] Comment: Performed By: #### CBC, ADIF F, ANEU, BMP, GFR #### [address] [address] ldh on 2020-01-22 LDH 194 120-246 U/L Normal 01-22-2020 [facility]) (81668) Comment: Performed By: #### CBC, ADIF F, ANEU, BMP, GFR #### [facility] [address] [place] [address] fib on 2020-01-22 Fibrinogen 414 250-550 mg/dL Normal 01-22-2020 [facility] ([place]) (28650) Comment: Performed By: #### CBC, ADIF F, ANEU, BMP, GFR #### [facility] [address] [place] [address] ferr on 2020-01-22 Ferritin [Mass/Vol] 40 8-252 ng/mL Normal 01-22-2020 [facility] ([place]) (45957) Comment: Performed By: #### CBC, ADIF F, ANEU, BMP, GFR #### [facility] [address] [place] [address] dimer on 2020-01-22 Fibrin D-dimer FEU IA <200 0-230 ug/mL Normal 01-22-20 20 [facility] (d) [Mass/Vol] ([place] ) (05580) Comment: Result Comment: Results repo rted in [...] CBC, ADIF F, ANEU, BMP, GFR #### [facility] [address] [place] [address] angiography chest w/contrast on 2020-01-22 CT ANGIOGRAPHY ORIGINAL Normal 01-22-2020 [facility] CHEST W/CONTRAST CT PULMONARY ANGIOGRAM WITH IV CONTRAST: with post-processing, volume rendering and 3-D acquisitions. This exam was performed according to our departmental dose optimization program, and includes the [facility] ([place]) llowing measures where appli cable: automated exposure control, adjustment of the mAs and/or kVp according to patient size and/or exam, and an iterative reconstruction algorithm. Patient received 13 hour (43145) contrast allergy preparation. CLINICAL STATEMENT: elevated d [...] Erythrocyte distribution 13.7 11.5-15.5 % Normal 01-21 [facility] width (RBC) [Ratio] [facility] ([place]) (94380) Comment: Performed By: #### CBC, ADIF F, ANEU, BMP, GFR #### [facility] [address] [place] [address] Hematocrit (Bld) [Volume 36.0 34.0-46.0 % Normal 01-21 [facility] fraction] ([place]) (0000 0) Comment: Performed By: #### CBC, ADIF F, ANEU, BMP, GFR #### [place] [address] Hemoglobin (Bld) 11.9 12.0-16.0 G/dL Low 01-22-2020 [facility] [Mass/Vol] ([place]) (000 00) Comment: Performed By: #### CBC, ADIF F, ANEU, BMP, GFR #### [place] [address] MCH (RBC) [Entitic mass] 29.6 27.0-33.0 pg Normal 01-21 [facility] ([place]) (0000 0) Comment: Performed By: #### CBC, ADIF F, ANEU, BMP, GFR #### [place] [address] MCHC (RBC) [Mass/Vol] 33.0 32.0-36.0 G/dL Normal 01-22-20 20 [facility] ([place]) (0000 0) Comment: Performed By: #### CBC, ADIF F, ANEU, BMP, GFR #### [place] [address] MCV (RBC) [Entitic vol] 89.8 80.0-99.0 fL Normal 2019 [facility] ([place]) (0000 0) Comment: Performed By: #### CBC, ADIF F, ANEU, BMP, GFR #### [place] [address] Platelet mean volume 8.6 6.6-10.5 fL Normal 0 [facility] (Bld) [Entitic vol] ([place]) (57626) Comment: Performed By: #### CBC, ADIF F, ANEU, BMP, GFR #### [place] [id number] Platelets (Bld) [#/Vol] 269 150-450 10 3/mcL Normal 2019 [facility] ([place]) (66228) Comment: Performed By: #### CBC, ADIF F, ANEU, BMP, GFR #### [address] [address] RBC (Bld) [#/Vol] 4.01 4.10-5.30 10 6/mcL Low 01-22-2020 [facility] ([place]) (0000 0) Comment: Performed By: #### CBC, ADIF F, ANEU, BMP, GFR #### [address] [address] WBC (Bld) [#/Vol] 12.20 4.50-10.80 10 3/mcL High 01-22-2020 [facility] ([place]) (0000 0) Comment: Performed By: #### CBC, ADIF F, ANEU, BMP, GFR #### [address] [address] bmp on 2020-01-22 Calcium [Mass/Vol] 9.5 8.4-10.1 mg/dL Normal 01-22-2020 [facility] ([place]) (0000 0) Comment: Performed By: #### CBC, ADIF F, ANEU, BMP, GFR #### [place] [id number] Chloride [Moles/Vol] 106 98-110 mEq/L Normal 0 [facility] ([place]) (0000 0) Comment: Performed By: #### CBC, ADIF F, ANEU, BMP, GFR #### [address] [address] CO2 [Moles/Vol] 24 22-32 mEq/L Normal 01-22-2020 [facility] ([place]) (71117) Comment: Performed By: #### CBC, ADIF F, ANEU, BMP, GFR #### [address] [address] Creatinine [Mass/Vol] 0.76 0.50-1.20 mg/dL Normal 01-22-20 20 [facility] ([place]) (29273) Comment: Performed By: #### CBC, ADIF F, ANEU, BMP, GFR #### [address] [address] Electrolyte Balance 6.0 4.0-15.0 mEq/L Normal 01-22-2020 [facility] ([place]) (0000 0) Comment: Performed By: #### CBC, ADIF F, ANEU, BMP, GFR #### [address] [address] Glucose [Mass/Vol] 149 70-110 mg/dL High 01-22-2020 [facility] ([place]) (64012) Comment: Performed By: #### CBC, ADIF F, ANEU, BMP, GFR #### [address] [address] Potassium [Moles/Vol] 4.1 3.5-5.0 mEq/L Normal 01-22-20 [facility] ([place]) (0000 0) Comment: Performed By: #### CBC, ADIF F, ANEU, BMP, GFR #### [address] [address] Sodium [Moles/Vol] 136 136-145 mEq/L Normal 01-22-2020 [facility] ([place]) (12516) Comment: Performed By: #### CBC, ADIF F, ANEU, BMP, GFR #### [address] [address] Urea nitrogen [Mass/Vol] 12.0 8.0-22.0 mg/dL Normal 01-21 [facility] ([place]) (40086) Comment: Performed By: #### CBC, ADIF F, ANEU, BMP, GFR #### [address] [address] Urea nitrogen/Creatinine 15.8 10.0-22.0 ratio Normal 01-21 [facility] [Mass ratio] [facility] ([place]) (84446) Comment: Performed By: #### CBC, ADIF F, ANEU, BMP, GFR #### [address] [address] .neuabs on Neutrophils (Bld) 10.70 2.25-8.10 10 3/mcL High 01-22-2020 [facility] [#/Vol] [facility] ([place]) (71514) Comment: Performed By: #### CBC, ADIF F, ANEU, BMP, GFR #### [address] [address] .gfr on 2020-01-22 GFR Non- >60 Normal 01-21 [facility] ([place]) (93389) Comment: Result Comment: GFR Population mean for Afri can Iraqi, Non- Americans Ages 20-29 = 116 mL/min/1.73 [...] CBC, ADIF F, ANEU, BMP, GFR #### [place] [id number] GFR >60 Normal 0 [facility] ([place]) (50927) Comment: Result Comment: GFR Population mean for Afri can Iraqi, Non- Americans Ages 20-29 = 116 mL/min/1.73 [...] CBC, ADIF F, ANEU, BMP, GFR #### [address] [address] .auto diff on 01-21 Ammonia (P) [Mass/Vol] 0.30 0.09-1.40 10 3/mcL Normal 01-21-2 020 [facility] ([place]) (70098) Comment: Performed By: #### CBC, ADIF F, ANEU, BMP, GFR #### [address] [address] Basophils (Bld) 0.00 0.00-0.27 10 3/mcL Normal 01-22-2020 [facility] [#/Vol] [facility] ([place]) (37808) Comment: Performed By: #### CBC, ADIF F, ANEU, BMP, GFR #### [address] [address] Basophils/100 WBC (Bld) 0.3 0.0-2.5 % Normal 2019 [facility] ([place]) (0000 0) Comment: Performed By: #### CBC, ADIF F, ANEU, BMP, GFR #### [address] [address] Eosinophils (Bld) 0.00 0.00-0.65 10 3/mcL Normal 01-22-2020 [facility] [#/Vol] [facility] ([place]) (50756) Comment: Performed By: #### CBC, ADIF F, ANEU, BMP, GFR #### [address] [address] Eosinophils/100 WBC (Bld) 0.1 0.0-6.0 % Normal 01-12 0 [facility] ([place]) (0000 0) Comment: Performed By: #### CBC, ADIF F, ANEU, BMP, GFR #### [address] [address] Lymphocytes (Bld) 1.10 0.90-4.32 10 3/mcL Normal 01-22-2020 [facility] [#/Vol] [facility] ([place]) (57322) Comment: Performed By: #### CBC, ADIF F, ANEU, BMP, GFR #### [address] [address] Lymphocytes/100 WBC (Bld) 9.3 20.0-40.0 % Low - 0-2019 [facility] ([place]) (0000 0) Comment: Performed By: #### CBC, ADIF F, ANEU, BMP, GFR #### [address] [address] Monocytes/100 WBC (Bld) 2.2 2.0-13.0 % Normal 2019 [facility] ([place]) (0000 0) Comment: Performed By: #### CBC, ADIF F, ANEU, BMP, GFR #### [address] [address] Neutrophils/100 WBC (Bld) 88.1 50.0-75.0 % High 01-12 [facility] ([place]) (0000 0) Comment: Performed By: #### CBC, ADIF F, ANEU, BMP, GFR #### [address] [address] urinalysis with microscopy on 2020-01-21 Amorphous NONE Normal 01-21-2020 [facility] (17387) Comment: Performed By: #### [id number] ## ## [facility],[address] [place] [address] Bacteria LM.HPF (Urine sed) 3+ Normal [facility] [#/Area] [facility] ( 25158) Comment: Performed By: #### [id number] ## ## [facility],[address] [place] [address] Bilirubin [Mass/Vol] NEG NORMAL: NEGATIVE mg/dL Normal [facility] (46769) Comment: Performed By: #### [id number] ## ## [facility],[address] [place] [address] Blood 10 NORMAL: NEGATIVE Abnormal 01-21-2020 [facility] (31456) Comment: Performed By: #### [id number] ## ## [facility],[address] [place] [address] Casts LM.LPF (Urine sed) NONE Normal 01-20 [facility] [#/Area] [facility] ( 49221) Comment: Performed By: #### [id number] ## ## [facility],[address] [place] [address] Clarity (U) sl.cloudy NORMAL: CLEAR Normal 01-21-2020 [facility] ( 41832) Comment: Performed By: #### [id number] ## ## [facility] [place] [address] Color (U) p.yel NORMAL: YELLOW Normal 01-21-2020 [facility] (47130) Comment: Performed By: #### [id number] ## ## [facility],[address] [place] [address] 10673 Crystals LM Nom (Urine sed) NONE Normal [facility] ( 41705) Comment: Performed By: #### [id number] ## ## [facility],[address] [place] [address] 00844 Epi Cells MANY Normal 01-21-2020 [facility] (86143) Comment: Performed By: #### [id number] ## ## [facility],[address] [place] [address] Glucose [Mass/Vol] NORM NORMAL: NORMAL Normal 2019 [facility] ( 56572) Comment: Performed By: #### [id number] ## ## [facility],[address] [place] [address] Ketone NEG NORMAL: NEGATIVE Normal 01-21-2020 [facility] (86583) Comment: Performed By: #### [id number] ## ## [facility],[address] [place] [address] Mucous NONE Normal 01-21-2020 [facility] (59853) Comment: Performed By: #### [id number] ## ## [facility],[address] [place] [address] 11810 Nitrite Ql (U) NEG NORMAL: NEGATIVE Normal 01-21-20 [facility] ( 48685) Comment: Performed By: #### [id number] ## ## [facility] [place] [address] pH (Bld) 5 NORMAL: 5.0-8.0 Normal 01-21-2020 [facility] (14285) Comment: Performed By: #### [id number] ## ## [facility],[address] [place] [address] Protein (U) NEG NORMAL: NEGATIVE mg/dL Normal 01-21-2020 [facility] [Mass/Vol] [facility] (15449) Comment: Performed By: #### [id number] ## ## [facility],[address] [place] [address]84 Rbc 0-5 0-3 / hpf Normal 01-21-2020 [facility] (30934) Comment: Performed By: #### [id number] ## ## [facility],[address] [place] [address] Sp [place] 1.020 NORMAL: 1.010-1.030 Normal 0 [facility] ( 27323) Comment: Performed By: #### [id number] ## ## [facility],[address] [place] [address] 29698 Specimen type Nom (Spec) UNSPECIFIED Normal [facility] ( 01718) Comment: Performed By: #### [id number] ## ## [facility],[address] [place] [address] URINALYSIS WITH MICROSCOPY Normal [facility] (37918) Comment: Result Comment: URINALYSIS Performed By: #### [id number] ## ## [facility],[address] [place] [address] 21666 Urobilinog NORM NORMAL: NORMAL Normal 01-21-2020 [facility] (82391) Comment: Performed By: #### [id number] ## ## [facility],[address] [place] [address]19 Wbc 1-5 0-5 / hpf Normal 01-21-2020 [facility] (46983) Comment: Performed By: #### [id number] ## ## [facility],[address] [place] [address]1895 WBC (Bld) [#/Vol] NEG NORMAL: NEGATIVE 10*3/uL Normal 01-20 [facility] (68889) Comment: Result Comment: URINE MICROS COPIC Performed By: #### [id number] ## ## [facility],[address] [place] [address] 03776 Yeast LM Ql (Urine sed) NONE Normal 2019 [facility] (04770) Comment: Performed By: #### [id number] ## ## [facility],[address] [place] [address] 87126 troponin on 2020-01 Troponin I.cardiac <0.01 0.00 - 0.05 ng/mL Normal 0 [facility] [Mass/Vol] [facility] (17596) Comment: Result Comment: Elevated tro ponin (above [...] as heterophile antibodi es). Performed By: #### [id number] ## ## [facility],[address] [place] [address] tropi on 2020-01-21 Troponin I.cardiac <0.015 0.000-0.040 ng/mL Normal 0 [facility] [Mass/Vol] [facility] [place] (64918) Comment: Result Comment: Troponin I r eference ranges (05/22/14): 0.00-0.040 ng/mL Negative an d non-diagnostic. >0.040 ng/mL Consistent with cardiac damage, increased clinical risk and possibility of myocardial in farction. Serial measurements, a rise & fall in test results, clinical histo ry, appropriate symptoms and/or ECG changes may help assess possibility of ME. *Other non-acute coronary sy ndrome conditions such as CHF, myoc arditis, pulmonary emboli, sepsis and cardiac surgery could result in myoc ardial damage and increased troponi n levels. Performed By: #### TROPI ### # [place] [address] serum qual on 2020-01-21 EXTERNAL QC DONE? YES Normal 01-21-2020 [facility] (24282) Comment: Performed By: #### [id number] ## ## [facility],[address] [place] [address] INTERNAL QC PASS Normal 01-21-2020 [facility] (57965) Comment: Performed By: #### [id number] ## ## [facility],[address] [place], [place] [id number] SER NEGATIVE NEGATIVE Normal 01-21-2020 [facility] (28967) Comment: Performed By: #### [id number] ## ## [facility],[address] [place] [address] d-dimer, quantitative on 2020-01-21 D-DIMER QUANT 256 0 - 230 ng/ml High 01-21-2020 [facility] (28234) Comment: Performed By: #### [id number] ## ## [facility],[address] [place] [address] 12865 D-DIMER, QUANTITATIVE Normal 01-21-20 20 [facility] (23112) Comment: Result Comment: QUANT D-DIME R Performed By: #### [id number] ## ## [facility],[address] [place], [place] [id number] ct brain w/o contrast on 2020-01-21 CT BRAIN W/O [facility] Normal 0 [facility] [address] [place] [address] (08163) Patient: SALLY MCGREGOR Phone#: : 1980 Age: 39 Gender: F Pt. Type: ER Account: [id number] Location: 052 Ordering: DR. ANA ALCANTAR Exam Date: 01/20/202023:41 Family Phys: ISABEL ARIAS Charge Code: 778770 Physician: [facility] Order #: [id number] DLP Dose#: [id number] PROCEDURE: CT BRAIN WITHOUT CONTRAST COMPARISON: [facility], CT, BRAIN W/O CON, 01/29/2017, 22:39. [...] 39 Gender: F Pt. Type: ER Account: [id number] Location: 052 Ordering: DR. ANA ALCANTAR Exam Date: 01/20/2020/23:41 Family Phys: ISABEL ARIAS Charge Code: 221680 Physician: [facility] Order #: [id number] DLP Dose#: [id number] Approved by: Kelsey Mae MD on 01/21/2020 at 18:04 cmp with egfr on 31-01-09 Age - Reported 39 years Normal 01-21-2020 [facility] (50637) Comment: Performed By: #### [id number] ## ## [facility],[address] [place] [address] Albumin [Mass/Vol] 4.3 3.4 - 4.8 g/dL Normal 01-21-2020 [facility] ( 41053) Comment: Performed By: #### [id number] ## ## [facility],[address] [place] [address] 79441 Albumin/Globulin [Mass 1.5 0.9 - 1.6 {ratio} Normal 020 [facility]] [facility] (10395) Comment: Performed By: #### [id number] ## ## [facility],[address] [place] [address] 75018 ALK PHOS 71 38 - 126 U/L Normal 01-21-2020 [facility] (63940) Comment: Performed By: #### [id number] ## ## [facility],[address] [place] [address] 12734 ALT/SGPT 11 8 - 35 U/L Normal 01-21-2020 [facility] (03282) Comment: Performed By: #### [id number] ## ## [facility],[address] [place] [address] 03686 Anion gap [Moles/Vol] 12 10 - 20 mmol/L Normal 01-21-20 [facility] ( 26720) Comment: Performed By: #### [id number] ## ## [facility],[address] [place] [address] 52705 AST/SGOT 12 13 - 39 U/L Low 01-21-2020 [facility] (00116) Comment: Performed By: #### [id number] ## ## [facility],[address] [place] [address] 94073 B/C RATIO 19 0 - 30 ratio Normal 01-21-2020 [facility] (62351) Comment: Performed By: #### [id number] ## ## [facility] 50001 Bilirubin [Mass/Vol] 0.3 0.0 - 1.5 mg/dl Normal 0 [facility] ( 09451) Comment: Performed By: #### [id number] ## ## [facility],[address] [place] [address] 13282 Calcium [Mass/Vol] 9.2 8.6 - 10.2 mg/dl Normal 01-21-2020 [facility] ( 64312) Comment: Performed By: #### [id number] ## ## [facility],[address] [place] [address] 80732 Chloride [Moles/Vol] 102 98 - 107 mmol/L Normal 0 [facility] ( 55019) Comment: Performed By: #### [id number] ## ## [facility],[address] [place] [address] 32257 CO2 [Moles/Vol] 25.6 21.0 - 31.0 mmol/L Normal 01-21-2020 [facility] ( 75363) Comment: Performed By: #### [id number] ## ## [facility],[address] [place] [address] 93169 Creatinine [Mass/Vol] 1.1 0.6 - 1.2 mg/dl Normal 01-21-20 20 [facility] ( 26498) Comment: Performed By: #### [id number] ## ## [facility],[address] [place] [address] 72195 GFR/1.73 sq M >60 60 - 999 mL/min/{1.73_m2} Normal 0 [facility] non-blacks MDRD (000 00) (S/P/Bld) [...] OF AGE AND OLDER. Performed By: #### [id number] ## ## [facility],[address] [place] [address] 91529 GFR/1.73 sq M predicted among Normal 01-21-2020 [facility] non-blacks MDRD (S/P/Bld) [Vol Hospital (88852) rate/Area] Comment: Result Comment: COMPREHENSIV E METABOLIC PANEL Performed By: #### [id number] ## ## [facility],[address] [place] [address] 98677 GFR/1.73 sq M predicted 55 60 - 999 ML/MINUTE Low 2019 [facility] among non-blacks MDRD Hospital (03305) (S/P/Bld) [Vol rate/Area] Comment: Performed By: #### [id number] ## ## [facility],[address] [place] [address] 95016 Globulin (S) [Mass/Vol] 2.9 1.5 - 3.8 G/DL Normal 2019 [facility] ( 50041) Comment: Performed By: #### [id number] ## ## [facility],[address] [place] [address] 76339 Glucose [Mass/Vol] 100 74 - 106 mg/dl Normal 01-21-2020 [facility] ( 42964) Comment: Performed By: #### [id number] ## ## [facility],[address] [place] [address] 82223 Potassium [Moles/Vol] 3.6 3.5 - 5.1 mmol/L Normal 01-21-20 20 [facility] ( 26904) Comment: Performed By: #### [id number] ## ## [facility],[address] [place] [address] Protein [Mass/Vol] 7.2 6.4 - 8.3 g/dl Normal 01-21-2020 [facility] ( 15772) Comment: Performed By: #### [id number] ## ## [facility],[address] [place] [address] 06642 Sodium [Moles/Vol] 136 136 - 145 mmol/l Normal 01-21-2020 [facility] ( 12032) Comment: Performed By: #### [id number] ## ## [facility],[address] [place] [address] 66990 Urea nitrogen [Mass/Vol] 21 6 - 20 mg/dl High 01-20 [facility] ( 70103) Comment: Performed By: #### [id number] ## ## [facility],[address] [place] [address] 08376 chest 2 views on 31-01-09 CHEST 2 VIEWS [facility] Normal 01-21-20 [facility] [address] [place] [id number] ([id number]) Patient: SALLY MCGREGOR Phone#: : 1980 Age: 39 Gender: F Pt. Type: ER Account: [id number] Location: 052 Ordering: DR. ANA ALCANTAR Exam Date: 01/20/2020/23:45 Family Phys: ISABEL ARIAS Charge Code: 109485 Physician: [place] Order #: [id number] [id number] Dose#: PROCEDURE: X-RAY CHEST 2 VIEWS COMPARISON: [facility], , CHEST 2 VIEWS, 11/25/2019, 0:08. [...] Erythrocyte distribution 13.6 11.5-15.5 % Normal 01-20 [facility] width (RBC) [Ratio] [facility] ([place]) (12764) Comment: Performed By: #### CBC, ADIF F, ANEU, BMP, GFR #### [address] [address] Hematocrit (Bld) [Volume 35.6 34.0-46.0 % Normal 01-20 [facility] fraction] ([place]) (0000 0) Comment: Performed By: #### CBC, ADIF F, ANEU, BMP, GFR #### [address] [address] Hemoglobin (Bld) 11.4 12.0-16.0 G/dL Low 01-21-2020 [facility] [Mass/Vol] ([place]) (000 00) Comment: Performed By: #### CBC, ADIF F, ANEU, BMP, GFR #### [address] [address] MCH (RBC) [Entitic mass] 29.5 27.0-33.0 pg Normal 01-20 [facility] ([place]) (0000 0) Comment: Performed By: #### CBC, ADIF F, ANEU, BMP, GFR #### [address] [address] MCHC (RBC) [Mass/Vol] 32.2 32.0-36.0 G/dL Normal 01-21-20 [facility] ([place]) (0000 0) Comment: Performed By: #### CBC, ADIF F, ANEU, BMP, GFR #### [address] [address] MCV (RBC) [Entitic vol] 91.7 80.0-99.0 fL Normal 2019 [facility] ([place]) (0000 0) Comment: Performed By: #### CBC, ADIF F, ANEU, BMP, GFR #### [place] [address] Platelet mean volume 8.6 6.6-10.5 fL Normal 0 [facility] (Bld) [Entitic vol] ([place]) (95746) Comment: Performed By: #### CBC, ADIF F, ANEU, BMP, GFR #### [place] [address] Platelets (Bld) [#/Vol] 250 150-450 10 3/mcL Normal 2019 [facility] ([place]) (16962) Comment: Performed By: #### CBC, ADIF F, ANEU, BMP, GFR #### [place] [address] RBC (Bld) [#/Vol] 3.88 4.10-5.30 10 6/mcL Low 01-21-2020 A [facility] ([place]) (0000 0) Comment: Performed By: #### CBC, ADIF F, ANEU, BMP, GFR #### [place] [address] WBC (Bld) [#/Vol] 6.20 4.50-10.80 10 3/mcL Normal 01-21-2020 [facility] ([place]) (85478) Comment: Performed By: #### CBC, ADIF F, ANEU, BMP, GFR #### [place] [address] cbc + diff on 01-20 Basophils (Bld) 0.10 0.00 - 0.10 x10EE3/UL Normal 01-21-2020 Leland Johnston [#/Vol] [facility] (32004) Comment: Performed By: #### [id number] ## ## Mello Johnston [facility],[address] [place] [address] Basophils/100 WBC (Bld) 1.1 0.0 - 2.0 % Normal 2019 [facility] ( 92492) Comment: Performed By: #### [id number] ## ## [facility],[address] [place] [address] CBC + DIFF Normal 01-21-2020 [facility] (81464) Comment: Result Comment: CBC-COMPLETE BLOOD COUNT Performed By: #### [id number] ## ## [facility],[address] [place], [place] [id number] Eosinophils (Bld) 0.40 0.00 - 0.50 x10EE3/UL Normal 01-21-2020 [facility] [#/Vol] [facility] (06052) Comment: Performed By: #### [id number] ## ## [place] [id number] Eosinophils/100 WBC (Bld) 5.5 0.0 - 7.0 % Normal [facility] ( 27688) Comment: Performed By: #### [id number] ## ## [address] [address] Erythrocyte distribution 13.5 12.0 - 15.6 % Normal [facility] width (RBC) [Ratio] [facility] (14459) Comment: Performed By: #### [id number] ## ## [address] [address] Hematocrit (Bld) [Volume 33.8 34.0 - 46.0 % Low [facility] fraction] [facility] ( 64971) Comment: Performed By: #### [id number] ## ## [address] [address] Hemoglobin (Bld) 11.7 12.0 - 16.0 g/dl Low 01-21-2020 [facility] [Mass/Vol] [facility] (70707) Comment: Performed By: #### [id number] ## ## [address],[place] [address] Lymphocytes (Bld) 2.30 0.80 - 2.80 x10EE3/UL Normal 01-21-2020 [facility] [#/Vol] [facility] (73723) Comment: Performed By: #### [id number] ## ## [place] [id number] Lymphocytes/100 WBC (Bld) 30.4 20.0 - 45.0 % Normal [facility] ( 94892) Comment: Performed By: #### [id number] ## ## [address] [address] MANUAL DIFF N/A Normal 01-21-2020 [facility] (43209) Comment: Performed By: #### [id number] ## ## [address] [address] MCH (RBC) [Entitic mass] 31 27 - 33 pg Normal 01-20 [facility] ( 28577) Comment: Performed By: #### [id number] ## ## [address] [address] MCHC (RBC) [Mass/Vol] 35 32 - 36 X10 3 Normal 01-21-20 20 [facility] ( 52158) Comment: Performed By: #### [id number] ## ## [address] [address] MCV (RBC) [Entitic vol] 88 80 - 99 fl Normal 2019 [facility] ( 55290) Comment: Performed By: #### [id number] ## ## [address] [address] Monocytes (Bld) 0.50 0.20 - 1.00 x10EE3/UL Normal 01-21-2020 [facility] [#/Vol[facility] (23582) Comment: Performed By: #### [id number] ## ## [facility],[address] [place] [address] MONOS % 6.5 0.0 - 10.0 % Normal 01-21-2020 [facility] (14176) Comment: Performed By: #### [id number] ## ## [facility],[address] [place] [address] Morphology Adrian (Bld) [Interp] N/A Normal 01-21-2020 [facility] ( 59294) Comment: Performed By: #### [id number] ## ## [facility],[address] [place] [address] Neutrophils (Bld) 4.30 1.50 - 7.10 x10EE3/UL Normal 01-21-2020 [facility] [#/Vol] [facility] (02381) Comment: Performed By: #### [id number] ## ## [facility],[address] [place] [address] Neutrophils/100 WBC (Bld) 56.5 46.0 - 76.0 % Normal [facility] ( 70300) Comment: Performed By: #### [id number] ## ## [facility],[address] [place] [address] Platelet mean volume 8.3 6.6 - 10.5 fl Normal 01-21-20 20 [facility] (Bld) [Entitic vol] [facility] (39540) Comment: Result Comment: AUTOMATED DI FFERENTIAL Performed By: #### [id number] ## ## [facility],[address] [place] [address] Platelets (Bld) 298 150 - 450 x10EE3/UL Normal 01-21-2020 [facility] [#/Vol] [facility] (43256) Comment: Performed By: #### [id number] ## ## [facility],[address] [place] [address] RBC (Bld) [#/Vol] 3.82 4.10 - 5.30 x 10EE6/UL Low 0 [facility] ( 95412) Comment: Performed By: #### [id number] ## ## [facility],[address] [place] [address] WBC (Bld) [#/Vol] 7.6 4.5 - 10.8 x 10EE3/UL Normal 01-21-2020 [facility] ( 10963) Comment: Performed By: #### [id number] ## ## [facility] [place] [address] bmp on 2020-01-21 Creatinine [Mass/Vol] 0.96 0.50-1.20 mg/dL Normal 01-21-20 20 [facility] ([place]) (23166) Comment: Performed By: #### CBC, ADIF F, ANEU, BMP, GFR #### [address] [address] Urea nitrogen/Creatinine 18.8 10.0-22.0 ratio Normal 01-20 [facility] [Mass ratio] [facility] ([place]) (33090) Comment: Performed By: #### CBC, ADIF F, ANEU, BMP, GFR #### [address] [address] Calcium [Mass/Vol] 8.7 8.4-10.1 mg/dL Normal 01-21-2020 [facility] ([place]) (0000 0) Comment: Performed By: #### CBC, ADIF F, ANEU, BMP, GFR #### [address] [address] Chloride [Moles/Vol] 108 98-110 mEq/L Normal 0 [facility] ([place]) (0000 0) Comment: Performed By: #### CBC, ADIF F, ANEU, BMP, GFR #### [address] [address] CO2 [Moles/Vol] 26 22-32 mEq/L Normal 01-21-2020 [facility] ([place]) (20576) Comment: Performed By: #### CBC, ADIF F, ANEU, BMP, GFR #### [place] [address] Electrolyte Balance 4.0 4.0-15.0 mEq/L Normal 01-21-2020 [facility] ([place]) (0000 0) Comment: Performed By: #### CBC, ADIF F, ANEU, BMP, GFR #### [place] [id number] Glucose [Mass/Vol] 85 70-110 mg/dL Normal 01-21-2020 [facility] ([place]) (63255) Comment: Performed By: #### CBC, ADIF F, ANEU, BMP, GFR #### [place] [address] Potassium [Moles/Vol] 4.1 3.5-5.0 mEq/L Normal 01-21-20 [facility]) (0000 0) Comment: Performed By: #### CBC, ADIF F, ANEU, BMP, GFR #### [place] [address] Sodium [Moles/Vol] 138 136-145 mEq/L Normal 01-21-2020 [facility] ([place]) (55731) Comment: Performed By: #### CBC, ADIF F, ANEU, BMP, GFR #### [place] [address] Urea nitrogen [Mass/Vol] 18.0 8.0-22.0 mg/dL Normal 01-20 [facility] ([place]) (37736) Comment: Performed By: #### CBC, ADIF F, ANEU, BMP, GFR #### [address] [address] .neuabs on Neutrophils (Bld) 3.50 2.25-8.10 10 3/mcL Normal 01-21-2020 [facility] [#/Vol] [facility] ([place]) (99357) Comment: Performed By: #### CBC, ADIF F, ANEU, BMP, GFR #### [address] [address] .gfr on 2020-01-21 GFR Non- >60 Normal 01-20 [facility] ([place]) (12346) Comment: Result Comment: GFR Population mean for Afri can Iraqi, Non- Americans Ages 20-29 = 116 mL/min/1.73 [...] CBC, ADIF F, ANEU, BMP, GFR #### [address] [address] GFR >60 Normal 0 [facility] ([place]) (36185) Comment: Result Comment: GFR Population mean for Afri can Iraqi, Non- Americans Ages 20-29 = 116 mL/min/1.73 [...] CBC, ADIF F, ANEU, BMP, GFR #### [address] [address] .auto diff on 01-20 Ammonia (P) [Mass/Vol] 0.40 0.09-1.40 10 3/mcL Normal 020 [facility] ([place]) (01176) Comment: Performed By: #### CBC, ADIF F, ANEU, BMP, GFR #### [address] [address] Basophils (Bld) 0.00 0.00-0.27 10 3/mcL Normal 01-21-2020 [facility] [#/Vol] [facility] ([place]) (84822) Comment: Performed By: #### CBC, ADIF F, ANEU, BMP, GFR #### [address] [address] Basophils/100 WBC (Bld) 0.5 0.0-2.5 % Normal 2019 [facility] ([place]) (0000 0) Comment: Performed By: #### CBC, ADIF F, ANEU, BMP, GFR #### [address] [address] Eosinophils (Bld) 0.30 0.00-0.65 10 3/mcL Normal 01-21-2020 [facility] [#/Vol] [facility] ([place]) (64325) Comment: Performed By: #### CBC, ADIF F, ANEU, BMP, GFR #### [address] [address] Eosinophils/100 WBC (Bld) 5.4 0.0-6.0 % Normal [facility] ([place]) (0000 0) Comment: Performed By: #### CBC, ADIF F, ANEU, BMP, GFR #### [address] [address] Lymphocytes (Bld) 2.00 0.90-4.32 10 3/mcL Normal 01-21-2020 [facility] [#/Vol] [facility] ([place]) (86009) Comment: Performed By: #### CBC, ADIF F, ANEU, BMP, GFR #### [address] [address] Lymphocytes/100 WBC (Bld) 32.4 20.0-40.0 % Normal 05-0 [facility] ([place]) (30860) Comment: Performed By: #### CBC, ADIF F, ANEU, BMP, GFR #### [address] [address] Monocytes/100 WBC (Bld) 6.1 2.0-13.0 % Normal 2019 [facility] ([place]) (0000 0) Comment: Performed By: #### CBC, ADIF F, ANEU, BMP, GFR #### [facility] [address] [place] [address] Neutrophils/100 WBC (Bld) 55.6 50.0-75.0 % Normal 050 [facility] ([place]) (40952) Comment: Performed By: #### CBC, ADIF F, ANEU, BMP, GFR #### [facility] [address] [place] [address] cnpn on 2020-01-20 [facility] Normal 01-20-2020 [facility] SALLY MCGREGOR ([id number]) 1980 [facility] Date Time Provider Department ([id number]) 01/20/20 MARCELINO MEJIA [facility] During your visit today, we recorded the following informati on about you: Christopher Carcamo RN 01/20/2020 11:54 AM Signed Patient asking if Chaz Stroud, would sent AB Rx to [facility], for her bad tooth? Her dentist in [place] is not open. Has an appt with a dentist in [place] on . Has a wound on tongue [...] (METRONIDAZOLE HCL) 03/11/2010 12 - Shortness of [place] th IBUPROFEN 06/18/2016 8 - GI Upset [...] 01/20/20 progress on 2020-01 PROGRESS HNO ID: [id number] Normal 01-16-2020 [facility] Author: Isabel Mata ([id number]) Service: ? Author Type: Physician Gas Plant Worker Type: Progress Notes Filed: 01/16/2020 1:43 PM [...] She c/o of daily. Attempted to call [facility] who had 1 visit with [...] testing. 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 In mean time will order stress testing [...] on 2020-01-16 MORENA Telephone (FAMPWS) Normal 01-16-2020 [facility] SALLY MCGREGOR ([id number]) 1980 [facility] Time Provider Department (47388) 01/16/20 ISABEL ARIAS) RAMA During your visit [...] and/or ibuprofen for pain. Follow-up with her [facility] care physician within the next 3 [...] Chest pain This note was generated with Spotsetter dictation software. It m ay contain incorrect [...] (METRONIDAZOLE HCL) 03/11/2010 12 - Shortness of [place] th IBUPROFEN 06/18/2016 8 - GI Upset [...] Encounter Status:Closed by ISABEL WARE on 01/16/20 [facility] ([facility] Normal 01-16-2020 [facility] SALLY MCGREGOR ([id number]) 1980 [facility] Time Provider Department ([id number]) 01/16/20 ISABEL ARIAS) RAMA During your visit [...] (METRONIDAZOLE HCL) 03/11/2010 12 - Shortness of [place] th IBUPROFEN 06/18/2016 8 - GI Upset [...] on 2020-01-11 CNPN Telephone (FAMPWS) Normal 01-11-2020 [facility] SALLY MCGREGOR ([id number]) 1980 [place] [facility] Date Time Provider Department (77882) 01/11/20 MARCELINO MEJIA During your visit today, [...] (METRONIDAZOLE HCL) 03/11/2010 12 - Shortness of [place] th IBUPROFEN 06/18/2016 8 - GI Upset PENICILLINS 12/07/2009 2 - Rash PREDNISONE 06/18/2016 14 - Other: See Comments Comments: makes agitated and mean Date Reviewed: 01/02/2020 Reviewed by: Ashley Lehman Ma - Fully Assessed Reason for Visit: Patient Question [1211] Reason For Visit History Recorded Prescriptions as [...] on 2020-01-09 CNPN Telephone ([facility]AMPWS) Normal 01-09-2020 [facility] SALLY MCGREGOR ([id number]) 1980 [facility] Date Time Provider Department (43585) 01/09/20 ISABEL ARIAS) [facility] During your visit today, we recorded [...] when taken with s eroquel is worsening GM MOBILE depression. See if she is willing to [...] by ISABEL WARE on 01/09/20 CNPN Telephone ([facility]) Normal 01-09-2020 [facility] SALLY MCGREGOR ([id number]) 1980 [facility] Date Time Provider Department (19089) 01/09/20 MARCELINO MEJIA During your visit today, [...] she called because she's not really thinking [facility]. Marcelino Mejia MD 01/09/2020 1:31 PM [...] flexeril. Monica t says she cannot take Casco because she is on ok Seroquel and [...] because of her insurance . She tried [place] because they accepted her insurance but they [...] seen by ER or UC, then at [facility] they can see/check for signs of [...] she has called every dentist office in [place] and now [place] and no one takes her insurance. She said she called her insurance and they told her the only one was the one in [place]. I told her if her infection is that bad she needs to go back to ER for further evaluation. Patient then just keep saying I have no way of getting there; no family can take her; she has no money to pay to get there. Patient ended call. I did call Dr. Evans's office oral surgeon [phone] and they are open from 8-3 after day to see patient's and [facility]. They were currently closed but wanting to find out if they accept her insurance. ISABEL ARIAS PA-C 01/10/2020 7:18 AM Signed Noted. Allergies As of Date: 01/09/2020 Noted Allergy Reaction ASA (SALICYLATES) 01/27/2011 14 - Other: See Comments Comments: ulcers CONTRAST DYE (IODINE) 05/17/2008 12 - Shortness of Breath FLAGYL (METRONIDAZOLE HCL) 03/11/2010 12 - Shortness of [place] th IBUPROFEN 06/18/2016 8 - GI Upset [...] * * *Final Report* * * Normal [facility] AP/LAT DATE OF EXAM: Jan 06 2020 12:58PM [facility] ([id number]) WOX 5262 - XR THORACIC 2V AP/LAT / PROCEDURE REASON: Fall, initial encounter * * * * Physician Interpretation * * * * EXAM TITLE: XR THORACIC 2V AP/LAT DATE: 01/06/2020 COMPARISON: None. CLINICAL INDICATION/HISTORY: Back pain status post fall in [facility]. TECHNIQUE: AP and lateral views of the thoracic spine are pr esented. FINDINGS: No fractures or subluxations are noted. The disc spaces are well preserved. There is no paraspinal mass or delon destructive process. IMPRESSION: Negative thoracic spine. Sign Writer Letterer Or Painter: PSCB Transcribe Date/Time: Jan 06 2020 1:02P Dictated by : NIDA VILLALOBOS MD This examination was interpreted and the report reviewed and electronically signed by: NIDA VILLALOBOS MD on Jan 06 2020 1:07PM EST [id number] xr cervical 3v ap/lat/odon on 2020-01-06 XR CERVICAL 3V * * *Final Report* * * Normal [facility] AP/LAT/ODON DATE OF EXAM: Jan 06 2020 12:58PM [facility] WOX 5309 - XR CERVICAL 3V AP/LAT/ODON / 3 (34165) PROCEDURE REASON: Fall, initial encounter * * [...] tissues are normal. IMPRESSION: Negative cervical spine. Sign Writer Letterer Or Painter: PSCB Transcribe Date/Time: Jan 06 2020 1:00P Dictated by : NIDA VILLALOBOS MD This examination was interpreted and the report reviewed and electronically signed by: NIDA VILLALOBOS MD on Jan 06 2020 1:04PM EST [id number] progress on 2019-12 PROGRESS HNO ID: [id number] Normal 01-06-2020 [facility] Author: Vianey Sanchez (Tech) [facility] ([id number]) Service: ? Author Type: Seam Press Operator Type: Progress Notes Filed: 01/06/2020 12:58 [...] 12:43 PM cnpn on 2020-01-06 [facility] Normal 01-06-2020 [facility] SALLY MCGREGOR ([id number]) 1980 [facility] Date Time Provider Department ([id number]) 01/06/20 MARCELINO MEJIA During your visit today, we recorded the following informati on about you: Deepa Salvador, SPANISH INTERPRETER, SPANISH INTERPRETER 01/06/2020 11:41 AM Signed Pt calls states fell a day ago and went to [facility] they gave h er 10 vicodin, [...] encounter [W19.XXXA] Order(s):XR THORACIC LIMITED 2V AP/LAT [[id number]] Order #: [id number] FUTURE XR CERV INJURY 3V AP/LAT/ODON [[id number]] Order #: [id number] FUTURE Prescriptions as of 01/06/2020 Sig: SERTRALINE [...] Status:Closed by BRANDEN SANDERS MA on 01/06/20 [facility] Tele[facility] ([facility]) Normal 01-06-2020 [facility] SALLY MCGREGOR ([id number]) 1980 [facility] Date Time Provider Department ([id number]) 01/06/20 MARCELINO MEJIA [facility] During your visit today, we recorded [...] (METRONIDAZOLE HCL) 03/11/2010 12 - Shortness of [place] th IBUPROFEN 06/18/2016 8 - GI Upset [...] 01/06/20 progress on 2019-12 PROGRESS HNO ID: [id number] Normal 01-05-2020 [facility] Author: Isabel Romero) Hugo Mata ([id number]) Service: ? Author Type: Physician Gas Plant Worker Type: Progress Notes Filed: 01/05/2020 8:07 AM [...] to cancel due to no r kostas. [facility] has appointment rescheduled on january 19. [...] minutes progress on 2019-12 PROGRESS HNO ID: [id number] Normal 01-02-2020 [facility] Author: Marie Mary) [facility] ([id number]) Service: ? Author Type: Nurse Practitioner Type: [...] Benign liver cyst 05/24/2010 CT scan at [facility] 11/2009 and 04/2010 showe 4 mm increase in size . No pain. No elevated LFTs on 03/11/2010. - Calculus of kidney 05/17/[address] Nicolas: Hospitalized age 20, and again later -- no procedures so far ([facility], [facility], 1995 [facility]) - Dysmenorrhea - Impaired fasting glucose [...] Approx. 3 cigarettes daily-1 pack every w [facility] Substance Use Topics - Alcohol use: Yes [...] 2020-01-02 CNOV Office Visit ([facility]) Normal 01-02-20 [facility] SALLY Martinez ([id number]) 1980 [place] [facility] Date Time Provider Department ([id number]) 01/02/20 2:45 PM MARIE SANTAMARIA (JAKI) [facility] [...] Benign liver cyst 05/24/2010 CT scan at [facility] 11/2009 and 04/2010 showe 4 mm increase in size . No pain. No elevated LFTs on 03/11/2010. - Calculus of kidney 05/17/[address] Nicolas: Hospitalized age 20, a nd again later -- no procedures so far ([facility], [facility], 1995 [facility]) - Dysmenorrhea - Impaired fasting glucose [...] Approx. 3 cigarettes daily-1 pack every w [facility] Substance Use Topics - Alcohol use: Yes [...] MG CAPSULE Agrees to plan Marie Santamaria APRN.OVERHEAD FOREMAN Referring Provider: SELF [200] Allergies As of Date: 01/02/2020 Noted Allergy Reaction ASA (SALICYLATES) 01/27/2011 14 - Other: See Comments Comments: ulcers CONTRAST DYE (IODINE) 05/17/2008 12 - Shortness of Breath FLAGYL (METRONIDAZOLE HCL) 03/11/2010 12 - Shortness of [place] th IBUPROFEN 06/18/2016 8 - GI Upset [...] SANTAMARIA CNP on 01/02/20 cnpn on 2019-12-23 [facility] Telephone ([facility]) Normal 12-23-2019 [facility] SALLY MCGREGOR ([id number]) 1980 [facility] Date Time Provider Department (88207) 12/23/19 [facility] ARIAS) [facility] During your visit today, we recorded [...] not helping cough. Please advise and call [phone]. WENDI ARIAS PA-C 12/23/2019 1:02 PM Signed [...] * *Final Report* * * Normal 12-21 [facility] FRONTAL/LAT DATE OF EXAM: Dec 22 2019 9:28AM [facility] WOX 5291 - XR CHEST 2V FRONTAL/LAT / ([id number]) PROCEDURE REASON: multiple diagnoses * * * [...] clips noted. IMPRESSION: No acute radiographic abnormality. Sign Writer Letterer Or Painter: PSCB Transcribe Date/Time: Dec 22 2019 9:29A Dictated by : NIDA VILLALOBOS MD This examination was interpreted and the report reviewed and electronically signed by: NIDA VILLALOBOS MD on Dec 22 2019 9:51AM EST [id number] progress on 2019-12 PROGRESS HNO ID: [id number] Normal 12-22-2019 [facility] Author: Madeline Joyner (Rt) Vianey uLo Mata ([id number]) Service: ? Author Type: Seam Press Operator Type: Progress Notes Filed: 12/22/2019 9:28 [...] 22, 2019 9:18 AM cnpn on 2019-12-22 [facility] Telephone ([facility]AMPWS) Normal 12-22-2019 [facility] SALLY MCGREGOR ([id number]) 1980 [facility] Date Time Provider Department (75364) 12/22/19 ISABEL ARIAS) RAMA During your visit today, we recorded the following informati on about you: ISABEL ARIAS PA-C 12/22/2019 9:56 AM Signed Let patient know that xray is negative. Recommend cont inuing as we discussed yesterday. Isabel Arias PA-C Ashley Mcfarland Substation Operator 12/22/2019 10:42 AM Signed Patient notified and verbalized understanding Ashley Mcfarland Substation Operator Allergies As of Date: 12/22/2019 Noted Allergy Reaction ASA (SALICYLATES) 01/27/2011 14 - Other: See Comments Comments: ulcers CONTRAST DYE (IODINE) 05/17/2008 12 - Shortness of Breath FLAGYL (METRONIDAZOLE HCL) 03/11/2010 12 - Shortness of [place] th IBUPROFEN 06/18/2016 8 - GI Upset [...] 12/22/19 progress on 2019-12 PROGRESS HNO ID: [id number] Normal 12-21-2019 [facility] Author: Isabel Romero) Hugo Mata ([id number]) Service: ? Author Type: Physician Gas Plant Worker Type: Progress Notes Filed: 12/21/2019 12:48 PM [...] SYSTEMS: As noted in HPI PHYSICAL EXAMINATION: [facility] 08/10/2006 Deferred physical exam as visit [...] on 2019-12-15 CNPN Telephone (FAMPWS) Normal 12-15-2019 [facility] SALLY MCGREGOR ([id number]) 1980 [facility] [facility] Date Time Provider Department ([id number]) 12/15/19 ISABEL ARIAS (MAYA) RAMA During your [...] and still makes her nauseated. Patient uses [facility] for her pharmacy. Please advise ISABEL ARIAS [...] on 2019-12-14 CNPN Telephone (INTMWS) Normal 12-14-2019 [facility] SALLY MCGREGOR ([id number]) 1980 [facility] Date Time Provider Department (86287) 12/14/19 ISABEL ARIAS) INTMWS During your visit today, we recorded the following informati on about you: Gale Fuentes LPN 12/14/2019 10:15 AM Signed Patient took 1 dose of Robitussin AC, di d help suppress cough but developed an itchy/rash. Asking if something else can be called in to pha acy. Patient uses [facility]. Please notify Patient. Gale ARIAS PA-C 12/14/2019 [...] (METRONIDAZOLE HCL) 03/11/2010 12 - Shortness of Maraí th IBUPROFEN 06/18/2016 8 - GI Upset [...] on 12/14/19 CNPN Telephone (FAMPWS) Normal 12-14-2019 [facility] SALLY MCGREGOR ([id number]) 1980 [facility] Date Time Provider Department (63359) 12/14/19 ISABEL ARIAS) RAMA During your visit [...] 12/14/19 progress on 2019-11 PROGRESS HNO ID: [id number] Normal 12-13-2019 [facility] Author: Isabel Romero) Hugo Mata ([id number]) Service: ? Author Type: Physician [employer] Worker Type: Progress Notes Filed: 12/13/2019 10:36 AM [...] Benign liver cyst 05/24/2010 CT scan at [facility] 11/2009 and 04/2010 showe 4 mm increase in size . No pain. No elevated LFTs on 03/11/2010. - Calculus of kidney 05/17/[address] Nicolas: Hospitalized age 20, and again later -- no procedures so far ([facility], [facility], 1995 [facility]) - Dysmenorrhea - Impaired fasting glucose [...] Approx. 3 cigarettes daily-1 pack every w [facility] Substance Use Topics - Alcohol use: Yes [...] (COVID-19). emergency report on 2019-11-26 EMERGENCY REPORT [facility] Normal 11-25 [facility]ital EMERGENCY ROOM REPORT ([id number]) NAME ACCOUNT SEX AGE ADMIT DISCHARGE PT MED. RECORD# NUMBER DATE DATE TYPE SAM, [id number] F 39 11/24/19 11/25/19 3 SALLY [id number] ROOM: ER DATE OF : 1980 DICTATING [...] for review of her constipation regimen at [facility]. She verbalized understanding of the informa tion given and agreed to plan. She was discharged in stable condition. Dictated By: Ana Alcantar MD 11/25/19 05:37 JOB #: [id number] Transcribed By: dotty 11/25/19 22:11 Electronically signed by: Jennifer Perez MD 11/25/19 22:39 Page 2 of 2 SALLY MCGREGOR Emergency Room Report urinalysis with microscopy on 2019-11-25 Amorphous NONE Normal 11-25-2019 [facility] (84084) Comment: Performed By: #### [id number] ## ## [facility],[address] [place] [address] 01784 Bacteria LM.HPF (Urine sed) 4+ Normal [facility] [#/Area] [facility] ( 47313) Comment: Performed By: #### [id number] ## ## [facility],[address] [place] [address] 38040 Bilirubin [Mass/Vol] NEG NORMAL: NEGATIVE mg/dL Normal [facility] (20002) Comment: Performed By: #### [id number] ## ## [facility],[address] [place] [address] 61835 Blood 10 NORMAL: NEGATIVE Abnormal 11-25-2019 [facility] (02863) Comment: Performed By: #### [id number] ## ## [facility],[address] [place], [place] [address] Casts LM.LPF (Urine sed) NONE Normal 11-24 [facility] [#/Area] [facility] ( 18571) Comment: Performed By: #### [id number] ## ## [facility],[address] [place] [address] 88617 Clarity (U) sl.cloudy NORMAL: CLEAR Normal 11-25-2019 [facility] ( 41910) Comment: Performed By: #### [id number] ## ## [facility],[address] [place] [address] 02565 Color (U) p.yel NORMAL: YELLOW Normal 11-25-2019 [facility] (90838) Comment: Performed By: #### [id number] ## ## [facility],[address] [place] [address] 82212 Crystals LM Nom (Urine sed) NONE Normal [facility] ( 47788) Comment: Performed By: #### [id number] ## ## [facility],[address] [place] [address] 09233 Epi Cells MANY Normal 11-25-2019 [facility] (60775) Comment: Performed By: #### [id number] ## ## [facility] 02528 Glucose [Mass/Vol] NORM NORMAL: NORMAL Normal 2019 [facility] ( 25791) Comment: Performed By: #### [id number] ## ## [facility],[address] [place] [address] 37376 Ketone NEG NORMAL: NEGATIVE Normal 11-25-2019 [facility] (67544) Comment: Performed By: #### [id number] ## ## [facility],[address] [place] [address] 35742 Mucous NONE Normal 11-25-2019 [facility] (66877) Comment: Performed By: #### [id number] ## ## [facility],[address] [place] [address] 96340 Nitrite Ql (U) NEG NORMAL: NEGATIVE Normal 11-25-19 20 [facility] ( 00760) Comment: Performed By: #### [id number] ## ## [facility],[address] [place] [address] 91818 pH (Bld) 5 NORMAL: 5.0-8.0 Normal 11-25-2019 [facility] (86997) Comment: Performed By: #### [id number] ## ## [facility],[address] [place] [address] 77399 Protein (U) NEG NORMAL: NEGATIVE mg/dL Normal 11-25-2019 [facility] [Mass/Vol] [facility] [place] (85128) Comment: Performed By: #### [id number] ## ## [facility] [place] [address] Rbc 0-5 0-3 / hpf Normal 11-25-2019 [facility] (94382) Comment: Performed By: #### [id number] ## ## [facility],[address] [place], [place] [address] Sp [place] 1.010 NORMAL: 1.010-1.030 Normal 0 [facility] ( 37294) Comment: Performed By: #### [id number] ## ## [facility],[address] [place] [address] Specimen type Nom (Spec) UNSPECIFIED Normal [facility] ( 72172) Comment: Performed By: #### [id number] ## ## [facility],[address] [place], [place] [address] URINALYSIS WITH MICROSCOPY Normal [facility] (17273) Comment: Result Comment: URINALYSIS Performed By: #### [id number] ## ## [facility],[address] [place] [address] Urobilinog NORM NORMAL: NORMAL Normal 11-25-2019 [facility] (86944) Comment: Performed By: #### [id number] ## ## [facility],[address] [place], [place] [address] Wbc 1-5 0-5 / hpf Normal 11-25-2019 [facility] (36892) Comment: Performed By: #### [id number] ## ## [facility],[address] [place], [place] [address] WBC (Bld) [#/Vol] 25 NORMAL: NEGATIVE Abnormal 11-24 [facility] ( 40961) Comment: Result Comment: URINE MICROS COPIC Performed By: #### [id number] ## ## [facility],[address] [place] [address] 50896 Yeast LM Ql (Urine sed) NONE Normal 2019 [facility] (71550) Comment: Performed By: #### [id number] ## ## [facility],[address] [place] [address] 97307 lipase on 2019-11-13 3 Lipase [Catalytic 34.0 18.0 - 51.0 U/L Normal 11-25-2019 [facility] activity/Vol] [facility] (61469) Comment: Performed By: #### [id number] ## ## [facility],[address] [facility] [address] lactate on Lactate [Moles/Vol] 0.9 0.5 - 2.0 mmol/L Normal 11-25-2019 [facility] ( 57020) Comment: Performed By: #### [id number] ## ## [facility],[address] [place] [address] abdomen/pelvis wo on 2019-11-25 CT ABDOMEN/PELVIS [facility] Normal 0 11-25-2019 [facility] [address] [place], [place] [id number] (93873) Patient: SALLY MCGREGOR Phone#: : 1980 Age: 39 Gender: F Pt. Type: ER Account: [id number] Location: [facility] Ordering: DR. ANA ALCANTAR Exam Date: 11/25/2019/0:04 Family Phys: ISABEL ARIAS Charge Code: 189717 Physician: [facility] Order #: [id number] DLP Dose#: PROCEDURE: CT ABDOMEN/PELVIS WITHOUT CONTRAST COMPARISON: [facility], CT, ABDOMEN/PELVIS W/O CON, 03/22/2019, 16:41. INDICATIONS: Abdominal Pain TECHNIQUE: CT images were created without intravenous contra st. All CT scans at this [facility] y use dose modulation, iterative reconstruction, and/or [...] 39 Gender: F Pt. Type: ER Account: [id number] Location: 052 Ordering: DR. ANA ALCANTAR Exam Date: 11/25/2019/0:04 Family Phys: ISABEL ARIAS Charge Code: [id number] Physician: [facility] Order #: [id number] DLP Dose#: ABDOMINAL WALL: There is a [...] on 2019-11-25 CNPN Telephone (FAMPWS) Normal 11-25-2019 [facility] TOSHIASALLY TORRES ([id number]) 1980 [place] Date Time Provider Department (40787) 11/25/19 [facility] During your [...] Age - Reported 39 years Normal 11-25-2019 [facility] (69810) Comment: Performed By: #### [id number] ## ## [facility],[address] [place] [address] 02279 Albumin [Mass/Vol] 4.5 3.4 - 4.8 g/dL Normal 11-25-2019 [facility] ( 56954) Comment: Performed By: #### [id number] ## ## [facility],[address] [place] [address] 47265 Albumin/Globulin [Mass 1.3 0.9 - 1.6 {ratio} Normal [address] [place] [address] (32844) Comment: Performed By: #### [id number] ## ## [facility],[address] [place] [address] 25018 ALK PHOS 93 38 - 126 U/L Normal 11-25-2019 [facility] (74415) Comment: Performed By: #### [id number] ## ## [facility],[address] [place] [address] 76892 ALT/SGPT 10 8 - 35 U/L Normal 11-25-2019 [facility] (84109) Comment: Performed By: #### [id number] ## ## [facility],[address] [place] [address] 78655 Anion gap [Moles/Vol] 13 10 - 20 mmol/L Normal 11-25-19 [facility] ( 75848) Comment: Performed By: #### [id number] ## ## [facility],[address] [place] [address] 80892 AST/SGOT 9 13 - 39 U/L Low 11-25-2019 [facility] (22483) Comment: Performed By: #### [id number] ## ## [facility] 05070 B/C RATIO 17 0 - 30 ratio Normal 11-25-2019 [facility] (58179) Comment: Performed By: #### [id number] ## ## [facility] [facility] 78988 Bilirubin [Mass/Vol] 0.4 0.0 - 1.5 mg/dl Normal 0 [facility] ( 44426) Comment: Performed By: #### [id number] ## ## [facility],[address] [place] [address] 76659 Calcium [Mass/Vol] 9.9 8.6 - 10.2 mg/dl Normal 11-25-2019 [facility] ( 58616) Comment: Performed By: #### [id number] ## ## [facility] [facility] [address] Chloride [Moles/Vol] 103 98 - 107 mmol/L Normal 0 [facility] ( 04485) Comment: Performed By: #### [id number] ## ## [facility]1 [place] [address] CO2 [Moles/Vol] 24.9 21.0 - 31.0 mmol/L Normal 11-25-2019 [facility] ( 32581) Comment: Performed By: #### [id number] ## ## [facility],[address] [place] [address] 08945 Creatinine [Mass/Vol] 1.0 0.6 - 1.2 mg/dl Normal 11-25-19 20 [facility] ( 07118) Comment: Performed By: #### [id number] ## ## [facility],[address] [place] [address] 64597 GFR/1.73 sq M >60 60 - 999 mL/min/{1.73_m2} Normal 0 [facility] predicted among [facility] non-blacks MDRD (000 00) (S/P/Bld) [Vol rate/Area] Comment: Performed By: #### [id number] ## ## [facility],[address] [place] [address] 43838 Result Comment: ACCORDING TO THE NATIONAL KIDNEY DISEASE EDUCATION PROGRAM(NKDE), A NORMAL eGFR IS A VALUE GREATER THAN OR E QUAL TO 60 ML/MIN/1.73 SQ METERS. CHRONIC KIDNEY DISEASE: <60m L/MIN/1.73 SQ METERS KIDNEY FAILURE: <15mL/MIN/1. 73 SQ METERS THIS TEST SHOULD ONLY BE USE D FOR PATIENTS 18 YEARS OF AGE AND OLDER. GFR/1.73 sq M predicted among Normal 11-25-2019 [facility] non-blacks MDRD (S/P/Bld) [Vol Hospital (58165) rate/Area] Comment: Result Comment: COMPREHENSIV E METABOLIC PANEL Performed By: #### [id number] ## ## [facility],[address] [place] [address] 81358 Globulin (S) [Mass/Vol] 3.5 1.5 - 3.8 G/DL Normal 2019 [facility] ( 99782) Comment: Performed By: #### [id number] ## ## [facility],[address] [place] [address] 39007 Glucose [Mass/Vol] 123 74 - 106 mg/dl High 11-25-2019 [facility] (90642) Comment: Performed By: #### [id number] ## ## [facility],[address] [place] [address] 43235 Potassium [Moles/Vol] 3.6 3.5 - 5.1 mmol/L Normal 11-25-19 20 [facility] ( 08684) Comment: Performed By: #### [id number] ## ## [facility],[address] [place] [address] 48280 Protein [Mass/Vol] 8.0 6.4 - 8.3 g/dl Normal 11-25-2019 [facility] ( 56978) Comment: Performed By: #### [id number] ## ## [facility],[address] [place] [address] 80330 Sodium [Moles/Vol] 137 136 - 145 mmol/l Normal 11-25-2019 [facility] ( 81176) Comment: Performed By: #### [id number] ## ## [facility],[address] [place] [address] 26286 Urea nitrogen [Mass/Vol] 17 6 - 20 mg/dl Normal 11-24 [facility] ( 19127) Comment: Performed By: #### [id number] ## ## [facility],[address] [place] [address] 34396 chest 2 views on 01-12-12 CHEST 2 VIEWS [facility] Normal 11-25-19 [facility] [address] [place], [place] [id number] (97843) Patient: SALLY MCGREGOR Phone#: : 1980 Age: 39 Gender: F Pt. Type: ER Account: [id number] Location: [facility] Ordering: DR. ANA ALCANTAR Exam Date: 11/25/2019/0:08 Family Phys: ISABEL ARIAS Charge Code: [id number] Physician: [facility] Order #: [id number] DLP Dose#: PROCEDURE: X-RAY CHEST 2 VIEWS COMPARISON: [facility], XR, CHEST PA/LAT, 05/12/2017, 16:14. INDICATIONS: [...] on 11-24 CELL COUNT 100 Normal 11-25-2019 [facility] (91355) Comment: Performed By: #### [id number] ## ## [facility],[address] [place] [address] 87031 EO 1.0 0.0 - 4.0 % Normal 11-25-2019 [facility] (15879) Comment: Performed By: #### [id number] ## ## [facility],[address] [place] [address] 19590 SEGS 59 50 - 70 % Normal 11-25-2019 [facility] (64574) Comment: Performed By: #### [id number] ## ## [facility],[address] [place] [address] 92155 CBC + DIFF Normal 11-25-2019 [facility] (03160) Comment: Result Comment: CBC-COMPLETE BLOOD COUNT Performed By: #### [id number] ## ## [facility],[address] [place] [address] 85270 Erythrocyte distribution 13.4 12.0 - 15.6 % Normal [facility] (RBC) [Ratio] [facility] (53362) Comment: Performed By: #### [id number] ## ## [facility],[address] [place] [address] 54730 Hematocrit (Bld) [Volume 32.5 34.0 - 46.0 % Low [facility]] [facility] ( 34240) Comment: Performed By: #### [id number] ## ## [facility],[address] [place] [address] 47521 Hemoglobin (Bld) 11.4 12.0 - 16.0 g/dl Low 11-25-2019 [facility] [Mass/Vol] Hospital (88083) Comment: Performed By: #### 600162 ## ## [facility],[address] [place] [address] 97322 Lymphocytes/100 WBC (Bld) 40 20 - 40 % Normal 11-12 [facility] ( 08482) Comment: Performed By: #### [id number] ## ## [facility],[address] [place] [address] 13741 MANUAL DIFF SEE BELOW Normal 11-25-2019 [facility] (87017) Comment: Performed By: #### [id number] ## ## [facility],[address] [place] [address] 87835 MCH (RBC) [Entitic mass] 31 27 - 33 pg Normal 11-24 [facility] ( 34276) Comment: Performed By: #### [id number] ## ## [facility],[address] [place] [address] 73195 MCHC (RBC) [Mass/Vol] 35 32 - 36 X10 3 Normal 11-25-19 20 [facility] ( 28266) Comment: Performed By: #### [id number] ## ## [facility],[address] [place] [address] 06181 MCV (RBC) [Entitic vol] 88 80 - 99 fl Normal 2019 [facility] ( 49087) Comment: Performed By: #### [id number] ## ## [facility],[address] [place] [address] 60650 Morphology Adrian (Bld) REVIEWED Normal 0 [facility] [Interp] [facility] ( 83849) Comment: Performed By: #### [id number] ## ## [facility],[address] [place] [address] 67355 Platelet mean volume 9.1 6.6 - 10.5 fl Normal 11-25-19 20 [facility] (Bld) [Entitic vol] [facility] (31707) Comment: Result Comment: AUTOMATED DI FFERENTIAL Performed By: #### [id number] ## ## [facility],[address] [place] [address] 87698 Platelets (Bld) 268 150 - 450 x10EE3/UL Normal 11-25-2019 [facility] [#/Vol] [facility] (68518) Comment: Performed By: #### [id number] ## ## [facility],[address] [place] [address] 60020 RBC (Bld) [#/Vol] 3.69 4.10 - 5.30 x 10EE6/UL Low 0 [facility] ( 23151) Comment: Performed By: #### [id number] ## ## [facility],[address] [place] [address] 51218 WBC (Bld) [#/Vol] 11.4 4.5 - 10.8 x 10EE3/UL High 11-25-2019 [facility] ( 38551) Comment: Performed By: #### [id number] ## ## [facility],[address] [place] [address] 30423 tsh on 2019-11-24 TSH Qn 3.920 0.270-4.200 uU/mL Normal 11-24-2019 [facility] (86334) Comment: Result Comment: If the patie nt [...] et al. 2017 Guide lines of the [place] Thyroid Association for the Diagnosis and Management of Thyroid Disease during and the . Thyroid, 2017:27:3:315-389. Performed By: #### TSH, CBCD IF, CMP ####[facility] [address] [place], [place] [address] [phone] troponin t on 11-23 Troponin T.cardiac Test sent to 0.000-0.029 Normal 2019 [facility] [Mass/Vol] [facility] (27037) [facility]. Comment: Result Comment: Account Cred ited HIDE progress on 2019-11 PROGRESS HNO ID: [id number] Normal 11-24-2019 [facility] Author: Jay) Hugo Bramwell ([id number]) Service: ? Author Type: Physician [employer] Worker Type: Progress Notes Filed: 11/24/2019 9:33 AM [...] insurance and was forced to see a [facility] psychiatrist who isn't helping her. Only spoke with her twice. States she is in a lot of pain and trouble sleeping. States gabapentin used to work for her but when she lost her insurance. PAST MEDICAL HISTORY Diagnosis Date - Allergic rhinitis, cause unspecified 05/17/2008 Spring and summer - Benign liver cyst 05/24/2010 CT scan at [facility] 11/2009 and 04/2010 showe 4 mm increase in size . No pain. No elevated LFTs on 03/11/2010. - Calculus of kidney 05/17/[address] Nicolas: Hospitalized age 20, and again later -- no procedures so far ([facility], [facility], 1995 [facility]) - Dysmenorrhea - Impaired fasting glucose [...] Approx. 3 cigarettes daily-1 pack every w [facility] Substance Use Topics - Alcohol use: Yes [...] dimer on D dimer Test sent to [place] <500 Normal 0 [facility]. (00212) Comment: Result Comment: Account Cred ited HIDE comp metabolic panel on 2019-11-24 Albumin [Mass/Vol] 4.4 3.9-4.9 g/dL Normal 11-24-2019 [facility] (17602) Comment: Performed By: #### TSH, CBCD IF, CMP ####[facility] [address] [place] [address] [phone] ALP [Catalytic activity/Vol] 105 34-123 U/L Normal 0 11-24-2019 [facility] (53306) Comment: Performed By: #### TSH, CBCD IF, CMP ####[facility] [address] [place] [address] [phone] ALT [Catalytic activity/Vol] 6 7-38 U/L Low 0 11-24-2019 [facility] (31270) Comment: Performed By: #### TSH, CBCD IF, CMP ####[facility] [place] [address] [phone] Anion gap [Moles/Vol] 12 9-18 mmol/L Normal 11-24-19 20 [facility] (65971) Comment: Performed By: #### TSH, CBCD IF, CMP ####[place] [address] [address] [place] [address] [phone] AST [Catalytic activity/Vol] 14 13-35 U/L Normal 0 11-24-2019 [facility] (12193) Comment: Performed By: #### TSH, CBCD IF, CMP ####[place] [address] [phone] Bilirubin [Mass/Vol] 0.4 0.2-1.3 mg/dL Normal 0 [facility] (43981) Comment: Performed By: #### TSH, CBCD IF, CMP ####[place] [address] [address] [place] [address] [phone] Calcium [Mass/Vol] 9.9 8.5-10.2 mg/dL Normal 11-24-2019 [facility] (88740) Comment: Performed By: #### TSH, CBCD IF, CMP ####[facility] [place] [address] [phone] Chloride [Moles/Vol] 101 97-105 mmol/L Normal 0 [facility] (95753) Comment: Performed By: #### TSH, CBCD IF, CMP ####[place] [address] [place] [address] [phone] CO2 [Moles/Vol] 23 22-30 mmol/L Normal 11-24-2019 [facility] (15206) Comment: Performed By: #### TSH, CBCD IF, CMP ####[facility] [address] [place] [address] [phone] Creatinine [Mass/Vol] 0.93 0.58-0.96 mg/dL Normal 11-24-19 [facility] (79825) Comment: Performed By: #### TSH, CBCD IF, CMP ####[facility] [address] [place] [address] [phone] eGFR- Amer. >60 Normal 11-24-2019 [facility] (76399) Comment: Performed By: #### TSH, CBCD IF, CMP ####[facility] [place] [address] [phone] GFR/1.73 sq M predicted >60 mL/min/{1.73_m2} Normal 11-24-2019 [facility] among non-blacks [facility] (87635) (S/P/Bld) [Vol rate/Area] Comment: Result Comment: eGFR [...] Performed By: #### TSH, CBCD IF, CMP ####[facility] [address] [place] [place] [address] [phone] Glucose [Mass/Vol] 98 74-99 mg/dL Normal 11-24-2019 [facility] (71565) Comment: Result Comment: The [place] Diabetes Association (ADA) provides guidance for cutoff [...] diabetes. Reference: Standards of [facility] Care in Diabetes 2016, [place] Diabetes Association. Diabetes Care. 2016.39(Suppl 1). Performed By: #### TSH, CBCD IF, CMP ####[facility] [address] [phone] Potassium [Moles/Vol] 4.1 3.7-5.1 mmol/L Normal 11-24-19 [facility] (75635) Comment: Performed By: #### TSH, CBCD IF, CMP ####[place] [address] [phone] Protein [Mass/Vol] 7.6 6.3-8.0 g/dL Normal 11-24-2019 [facility] (56072) Comment: Performed By: #### TSH, CBCD IF, CMP ####[place] [id number] [place] [address] [phone] Sodium [Moles/Vol] 136 136-144 mmol/L Normal 11-24-2019 [facility] (73362) Comment: Performed By: #### TSH, CBCD IF, CMP ####[place] [address] [phone] Urea nitrogen [Mass/Vol] 21 7-21 mg/dL Normal 11-23 [facility] (06499) Comment: Performed By: #### TSH, CBCD IF, CMP ####[place] [address] [phone] cnpn on 2019-11-24 CNPN Telephone (FAMPWS) Normal 11-24-2019 [facility] SALLY MCGREGOR ([id number]) 1980 [facility] Time Provider Department (25357) 11/24/19 MARCELINO MEJIA During your visit today, [...] is onl y under doctor for the [facility] [place] in the letter. Valente Bruce Ma' Allergies As of Date: 11/24/2019 Noted Allergy Reaction ASA (SALICYLATES) 01/27/2011 14 - Other: See Comments Comments: ulcers CONTRAST DYE (IODINE) 05/17/2008 12 - Shortness of Breath FLAGYL (METRONIDAZOLE HCL) 03/11/2010 12 - Shortness of [place] th IBUPROFEN 06/18/2016 8 - GI Upset [...] on 11/24/19 CNPN Telephone (FAMPWS) Normal 11-24-2019 [facility] SALLY MCGREGOR ([id number]) 1980 [facility] Date Time Provider Department (41393) 11/24/19 [facility] During your visit today, we recorded the following informati on about you: Lorenzo Vu 11/24/2019 12:40 PM Signed 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 If so please fax to [employer] fax [phone]. ISABEL ARIAS PA-C 11/24/2019 1:00 PM Signed [...] on 11/24/19 CNPN Telephone (FAMPWS) Normal 11-24-2019 [facility] SALLY MCGREGOR ([id number]) 1980 [facility] Date Time Provider Department (69172) 11/24/19 MARCELINO MEJIA [facility] During your visit today, we recorded the following informati on about you: Yvette Huffman RN 11/24/2019 12:00 PM Signed Aidee from [facility] lab called, verified pt by name [...] (METRONIDAZOLE HCL) 03/11/2010 12 - Shortness of [place] th IBUPROFEN 06/18/2016 8 - GI Upset [...] 2019-11-24 CNOV Office Visit (FAMPWS) Normal 11-24-19 [facility] SALLY MCGREGOR ([id number]) 1980 [facility] Date Time Provider Department (28077) 11/24/19 9:20 AM JAY ARIAS) FAMPWS During [...] Benign liver cyst 05/24/2010 CT scan at [facility] 11/2009 and 04/2010 showe 4 mm increase in size . No pain. No elevated LFTs on 03/11/2010. - Calculus of kidney 05/17/[address] Nicolas: Hospitalized age 20, a nd again later -- no procedures so far ([facility], [facility], [facility]) - Dysmenorrhea - Impaired fasting glucose [...] Approx. 3 cigarettes daily-1 pack every w zuni Substance Use Topics - Alcohol use: Yes [...] [facility] [[id number]] Order #: [id number]: 1 levoFLOXacin (LEVAQUIN) 500 mg tabletTake 1 [...] Baso 0.06 <0.11 k/uL Normal 11-24-2019 [facility] (03636) Comment: Performed By: #### TSH, CBCD IF, CMP ####[place] [address] [place] [address] [phone] Abs [place] 0.43 <0.87 k/uL Normal 11-24-2019 [facility] (56318) Comment: Performed By: #### TSH, CBCD IF, CMP ####[place] [address] [address] [place] [address] [phone] Abs Neut 5.59 1.45-7.50 k/uL Normal 11-24-2019 [facility] (25577) Comment: Performed By: #### TSH, CBCD IF, CMP ####[place] [address] [address] [place] [address] [phone] Absolute nRBC <0.01 <0.01 Normal 11-24-2019 [facility] (34593) Comment: Performed By: #### TSH, CBCD IF, CMP ####[place] [address] [address] [place] [address] [phone] Basophils/100 WBC (Bld) 0.7 % Normal 2019 [facility] (23710) Comment: Performed By: #### TSH, CBCD IF, CMP ####[place] [address] [address] [place] [address] [phone] DTYPE Auto Diff Normal 11-24-2019 [facility] (67430) Comment: Performed By: #### TSH, CBCD IF, CMP ####[place] [address] [place] [address] [phone] Eosinophils (Bld) [#/Vol] 0.34 <0.46 k/uL Normal 11-12 [facility] (74823) Comment: Performed By: #### TSH, CBCD IF, CMP ####[place] [address] [place] [address] [phone] Eosinophils/100 WBC (Bld) 3.7 % Normal 11-12 [facility] (78522) Comment: Performed By: #### TSH, CBCD IF, CMP ####[facility] [place] [address] Erythrocyte distribution 13.1 11.5-15.0 % Normal 11-23 [facility] width (RBC) [Ratio] [facility] (83013) Comment: Performed By: #### TSH, CBCD IF, CMP ####[facility] [address] Ave[address]reg [place] [address] [phone] Hematocrit (Bld) [Volume 38.1 36.0-46.0 % Normal 11-23 [facility] fraction] [facility] (44950) Comment: Performed By: #### TSH, CBCD IF, CMP ####[facility] [place] [address] [phone] Hemoglobin (Bld) 11.7 11.5-15.5 g/dL Normal 11-24-2019 [facility] [Mass/Vol] [facility] (80378) Comment: Performed By: #### TSH, CBCD IF, CMP ####[facility] [place] [address] [phone] Lymphocytes (Bld) [#/Vol] 2.69 1.00-4.00 k/uL Normal 11-12 [facility] (10638) Comment: Performed By: #### TSH, CBCD IF, CMP ####[facility] [address] Ave[address]reg [place] [address] [phone] Lymphocytes/100 WBC (Bld) 29.5 % Normal 11-12 [facility] (37719) Comment: Performed By: #### TSH, CBCD IF, CMP ####[facility] [address] AveCGreg [place] [address] [phone] MCH (RBC) [Entitic mass] 29.3 26.0-34.0 pG Normal 11-23 [facility] (97835) Comment: Performed By: #### TSH, CBCD IF, CMP ####[facility] [place] [address] [phone] MCHC (RBC) [Mass/Vol] 30.7 30.5-36.0 g/dL Normal 11-24-19 [facility] (00756) Comment: Performed By: #### TSH, CBCD IF, CMP ####[place] [address] [place] [address] [phone] MCV (RBC) [Entitic vol] 95.3 80.0-100.0 fL Normal 11-23 [facility] (41585) Comment: Performed By: #### TSH, CBCD IF, CMP ####[place] [address] [address] [place] [address] [phone] Monocytes/100 WBC (Bld) 4.7 % Normal 2019 [facility] (59513) Comment: Performed By: #### TSH, CBCD IF, CMP ####[place] [address] [address] [place] [address] [phone] Neutrophils/100 WBC (Bld) 61.4 % Normal 11-12 [facility] (07898) Comment: Result Comment: Differential confirmed by visual scan of peripheral blood smear slide. Performed By: #### TSH, CBCD IF, CMP ####[place] [address] [address] [address] [address] [phone] NRBCs 0.0 0 /100 WBC Normal 11-24-2019 [facility] (68219) Comment: Performed By: #### TSH, CBCD IF, CMP ####[place] [address] [place] [address] [phone] Platelet mean volume 11.4 9.0-12.7 fL Normal 0 [facility] (Bld) [Entitic vol] [facility] (96493) Comment: Performed By: #### TSH, CBCD IF, CMP ####[facility] [place] [address] [phone] Platelets (Bld) [#/Vol] 248 150-400 k/uL Normal 2019 [facility] (03749) Comment: Performed By: #### TSH, CBCD IF, CMP ####[facility] [place] [address] [phone] RBC (Bld) [#/Vol] 4.00 3.90-5.20 m/uL Normal 11-24-2019 [facility] (70698) Comment: Performed By: #### TSH, CBCD IF, CMP ####[place] [address] [place] [place] [address] [phone] WBC (Bld) [#/Vol] 9.11 3.70-11.00 k/uL Normal 11-24-2019 [facility] (72554) Comment: Performed By: #### TSH, CBCD IF, CMP ####[place] [address] [place] [address] [phone] cnpn on 2019-11-21 [facility] Normal 11-21-2019 [facility] SALLY MCGREGOR ([id number]) 1980 [facility] Date Time Provider Department (90206) 11/21/19 M[facility] MEJIA [facility] During your visit today, we recorded [...] Status:Closed by VALENTE BRUCE MA on 11/23/19 [facility] Telephone (FAMPWS) Normal 11-19-2019 [facility] SALLY MCGREGOR ([id number]) 1980 [facility] Date Time Provider Department (99164) 11/19/19 JC FELIX [facility] During your visit today, we recorded [...] 11/21/2019 11:15 AM Signed Pt seen in [facility] ER on 11/19/19. Janneth Zhou, RN, [...] (METRONIDAZOLE HCL) 03/11/2010 12 - Shortness of [place] th IBUPROFEN 06/18/2016 8 - GI Upset PENICILLINS 12/07/2009 2 - Rash PREDNISONE 06/18/2016 14 - Other: See Comments Comments: makes agitated and mean Date Reviewed: 11/18/2019 Reviewed by: Valente Bruce Ma - Fully Assessed Reason for Visit: Question [5718] Patient Update [4104] Reason For Visit History Recorded Prescriptions as [...] * *Final Report* * * Normal 11-17 [facility] FRONTAL/LAT DATE OF EXAM: Nov 18 2019 12:48PM [facility] WOX 5291 - XR CHEST 2V FRONTAL/LAT / (53939) PROCEDURE REASON: multiple diagnoses * * * [...] tissues: Unremarkable. IMPRESSION: No acute radiographic abnormality. Sign Writer Letterer Or Painter: PSCB Transcribe Date/Time: Nov 18 2019 1:01P Dictated by : KORI BLANKENSHIP MD This examination was interpreted and the report reviewed and electronically signed by: KORI BLANKENSHIP MD on Nov 18 2019 1:02PM EST [id number] progress on 2019-11 PROGRESS HNO ID: [id number] Normal 11-18-2019 [facility] Author: Kylee PickardRtVianey Lea [facility] ([id number]) Service: ? 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 No pain. No elevated LFTs on 03/11/2010. - Calculus of kidney 05/17/[address] Nicolas: Hospitalized age 20, and again later -- no procedures so far ([facility], [facility], 1995 [facility]) - Dysmenorrhea - Impaired fasting glucose [...] ABDOM HYSTERECTOMY 08/31/06 Hysterectomy, [facility] Family History FAMILY HISTORY Problem [...] Approx. 3 cigarettes daily-1 pack every w zuni Substance Use Topics - Alcohol use: Yes [...] NAME : SALLY MCGREGOR Normal 11-17-2 020 [facility] PID : [id number] Sina boyd ([id number]) : 1980 Gender : Female Race : [...] ms QTC Calculation(Bazett) : 453 ms P [place] : 51 degrees R [place] : -43 degrees T [place] : 6 degrees Test Reason : Location : 185 : [facility] Overread By : RUBEN GALVIN D.O. Edited By : RUBEN GALVIN D.O. Referred By : JAY ARIAS) Acquired by : morena MURRIETA on 2019-11-18 [facility] ([facility]WS) Normal 11-18-2019 [facility] SALLY MCGREGOR ([id number]) 1980 [facility] Time Provider Department (73269) 11/18/19 JAY ARIAS) [facility] During your visit today, we recorded the following informati on about you: Lorenzohanna Vu 11/18/2019 2:14 PM Addendum [facility] / [facility] calls with results of d-dimer 1.10 [...] (METRONIDAZOLE HCL) 03/11/2010 12 - Shortness of [place] th IBUPROFEN 06/18/2016 8 - GI Upset [...] cnov on 2019-11-18 CNOV Office Visit (FAMPWS) Taylor 11-18-[address] [place] [address] Dbera SALLY MCGREGOR ([id number]) 1980 [facility] Time Provider Department (59971) 11/18/19 12:20 PM JAY ARIAS) [facility] During your visit today, we recorded [...] Benign liver cyst 05/24/2010 CT scan at [facility] 11/2009 and 04/2010 showe 4 mm increase in size . No pain. No elevated LFTs on 03/11/2010. - Calculus of kidney 05/17/[address] Nicolas: Hospitalized age 20, a nd again later -- no procedures so far ([facility], most, 1995 [facility]) - Dysmenorrhea - Impaired fasting glucose [...] ABDOM HYSTERECTOMY 08/31/06 Hysterectomy, [facility] Family History FAMILY HISTORY Problem [...] Approx. 3 cigarettes daily-1 pack every w zuni Substance Use Topics - Alcohol use: Yes [...] Order(s):CONSULT TO PAIN MGT [19991220] Order #: [id number] : 1 FUTURE CBC + DIFF [SQCBCDIF] Order #: [id number] FUTURE COMP METABOLIC PANEL [SQCMP] Order #: [id number] FUTURE D-DIMER [SQDDMER] Order #: [id number] FUTURE TSH BLD [SQTSH] Order #: [id number] FUTURE CONSULT TO CARDIOLOGY [900] Order #: [id number]: 1 FUTUR E XR CHEST 2V FRONTAL/LAT [7094520] Order #: [id number] FUTURE TROPONIN T [SQTNT] Order #: [id number] FUTURE Prescriptions as of 11/18/2019 Sig: AMITRIPTYLINE [...] 11/18/19 emergency report on 2019-11-03 EMERGENCY REPORT [facility] Normal 11-03 [facility] EMERGENCY ROOM REPORT ([id number]) NAME ACCOUNT SEX AGE ADMIT DISCHARGE PT MED. RECORD# NUMBER DATE DATE TYPE SAM [id number] F 39 10/31/19 10/31/19 3 SALLY [id number] ROOM: ER DATE OF : 1980 DICTATING [...] try contacting Dr. Kyle hernandez through the [facility]. We will dispense her 2 Percocet to go home. I did r eview her OARRS, and she will be discharged in stable condition. Page 1 of 2 SALLY MCGREGOR Emergency Room Report SALLY MCGREGOR : 1980 Dictated By: Nikhil Lord DO 10/31/19 18:03 JOB #: [id number] Transcribed By: am 11/01/19 14:42 Electronically signed by: JC Lord D.O. 11/03/19 07:04 Page 2 of 2 SALLY MCGREGOR Emergency Room Report urinalysis on 10-31 Calcium Ox 1+ NORMAL: NONE Normal 10-31-2019 [facility] (04598) Comment: Performed By: #### [id number] ## ## [facility],[address] [facility] [address] Amorphous TRACE Normal 10-31-2019 [facility] (35413) Comment: Performed By: #### [id number] ## ## [facility] [facility],[place] [address] Bacteria LM.HPF (Urine sed) TRACE Normal [facility] [#/Area] [facility] ( 44400) Comment: Performed By: #### [id number] ## ## [facility] [facility] [address] Bilirubin [Mass/Vol] NEG NORMAL: NEGATIVE mg/dL Normal [facility] (11038) Comment: Performed By: #### [id number] ## ## [facility] [facility] [address] Blood 25 NORMAL: NEGATIVE Abnormal 10-31-2019 [facility] (50908) Comment: Performed By: #### [id number] ## ## [facility] [facility] [address] Casts LM.LPF (Urine sed) NONE Normal 10-31 [facility] [/Area] [facility] ( 76812) Comment: Performed By: #### [id number] ## ## [facility] [facility] [address] Clarity (U) clear NORMAL: CLEAR Normal 10-31-2019 [facility] (12647) Comment: Performed By: #### [id number] ## ## [facility] [facility] [address] Color (U) yellow NORMAL: YELLOW Normal 10-31-2019 [facility] (30072) Comment: Performed By: #### [id number] ## ## [facility] [facility] [address] Crystals LM Nom (Urine sed) SEE BELOW Normal [facility] ( 91884) Comment: Performed By: #### [id number] ## ## [facility] [place] [address] 62952 Epi Cells MANY Normal 10-31-2019 [facility] (99237) Comment: Performed By: #### [id number] ## ## [facility] [place] [address] 95697 Glucose [Mass/Vol] NORM NORMAL: NORMAL Normal 2019 [facility] ( 25580) Comment: Performed By: #### [id number] ## ## [facility] [place] [address] 07351 Ketone NEG NORMAL: NEGATIVE Normal 10-31-2019 [facility] (95923) Comment: Performed By: #### [id number] ## ## [facility] [place] [address] 18858 Microscopic SEE BELOW Normal 10-31-2019 [facility] (31885) Comment: Result Comment: MICROSCOPIC Performed By: #### [id number] ## ## [facility] [place] [address] 80329 Mucous NONE Normal 10-31-2019 [facility] (00080) Comment: Performed By: #### [id number] ## ## [facility] [place] [address] 73238 Nitrite Ql (U) NEG NORMAL: NEGATIVE Normal 10-31-19 20 [facility] ( 58262) Comment: Performed By: #### [id number] ## ## [facility] [place] [address] 06923 pH (Bld) 5 NORMAL: 5.0-8.0 Normal 10-31-2019 [facility] (23036) Comment: Performed By: #### [id number] ## ## [facility] [place] [address] 73070 Protein (U) NEG NORMAL: NEGATIVE mg/dL Normal 10-31-2019 [facility] [Mass/Vol] [facility] (04383) Comment: Performed By: #### [id number] ## ## [facility],[address] [place] [address] 95419 Rbc 0-5 0-3/hpf Normal 10-31-2019 [facility] (55528) Comment: Performed By: #### [id number] ## ## [facility],[address] [place], [place] [address] Sp [place] 1.030 NORMAL: 1.010-1.030 Normal 0 [facility] ( 98286) Comment: Performed By: #### [id number] ## ## [facility],[address] [place], [place] [address] Specimen type Nom (Spec) UNSPECIFIED Normal [facility] ( 04975) Comment: Performed By: #### 685351 ## ## [facility],[address] [place], [place] [address] Urobilinog NORM NORMAL: NORMAL Normal 10-31-2019 [facility] (00784) Comment: Performed By: #### 625121 ## ## [facility],[address] [place] [address] 38761 Wbc 1-5 0-5/hpf Normal 10-31-2019 [facility] (51688) Comment: Performed By: #### 103034 ## ## [facility],[address] [place] [address] 91842 WBC (Bld) [#/Vol] 25 NORMAL: NEGATIVE Abnormal 10-31 [facility] ( 28933) Comment: Performed By: #### 129072 ## ## [facility],[address] [place] [address] 82499 Yeast LM Ql (Urine sed) NONE Normal 2019 [facility] (92920) Comment: Performed By: #### [id number] ## ## [facility],[address] [facility] [address] lipase on 2019-10-15 7 Lipase [Catalytic 40.0 18.0 - 51.0 U/L Normal 10-31-2019 [facility] activity/Vol] [facility] (19015) Comment: Performed By: #### 727530 ## ## [facility] [facility] [address]1967 cmp with egfr on 03-11-16 Age - Reported 39 years Normal 10-31-2019 [facility] (91150) Comment: Performed By: #### [id number] ## ## [facility],[address] [place] [address] 10542 Albumin [Mass/Vol] 4.4 3.4 - 4.8 g/dL Normal 10-31-2019 [facility] ( 22728) Comment: Performed By: #### [id number] ## ## [facility],[address] [place] [address] 72529 Albumin/Globulin [Mass 1.3 0.9 - 1.6 {ratio} Normal 020 [facility]] [facility] (33056) Comment: Performed By: #### [id number] ## ## [facility] [address] ALK PHOS 79 38 - 126 U/L Normal 10-31-2019 [facility] (81689) Comment: Performed By: #### 599015 ## ## [facility] [address]448 ALT/SGPT 12 8 - 35 U/L Normal 10-31-2019 [facility] (77932) Comment: Performed By: #### 541800 ## ## [facility] [address] Anion gap [Moles/Vol] 12 10 - 20 mmol/L Normal 10-31-19 [facility] ( 59597) Comment: Performed By: #### 047159 ## ## [facility],[address] [facility] [address] AST/SGOT 13 13 - 39 U/L Normal 10-31-2019 [facility] (07878) Comment: Performed By: #### [id number] ## ## [facility] [facility],[place] [address] B/C RATIO 18 0 - 30 ratio Normal 10-31-2019 [facility] (86825) Comment: Performed By: #### [id number] ## ## [facility] [facility] [address] Bilirubin [Mass/Vol] 0.4 0.0 - 1.5 mg/dl Normal 0 [facility] ( 86290) Comment: Performed By: #### 098051 ## ## [facility] [place] [address] Calcium [Mass/Vol] 9.6 8.6 - 10.2 mg/dl Normal 10-31-2019 [facility] ( 81917) Comment: Performed By: #### 272589 ## ## [facility] [place] [address] Chloride [Moles/Vol] 103 98 - 107 mmol/L Normal 0 [facility] ( 26001) Comment: Performed By: #### 722889 ## ## [facility] [place] [address] CO2 [Moles/Vol] 25.8 21.0 - 31.0 mmol/L Normal 10-31-2019 [facility] ( 13581) Comment: Performed By: #### 660599 ## ## [facility] [place] [address] Creatinine [Mass/Vol] 1.0 0.6 - 1.2 mg/dl Normal 10-31-19 20 [facility] ( 05974) Comment: Performed By: #### 116151 ## ## [facility],[address] [place] [address] 86298 GFR/1.73 sq M predicted among Normal 10-31-2019 [facility] non-blacks MDRD (S/P/Bld) [Vol Hospital (57853) rate/Area] Comment: Result Comment: COMPREHENSIV E METABOLIC PANEL Performed By: #### [id number] ## ## [facility],[address] [place] [address] 12413 GFR/1.73 sq M >60 60 - 999 mL/min/{1.73_m2} Normal 0 [facility] predicted among [facility] non-blacks MDRD (000 00) (S/P/Bld) [Vol rate/Area] [...] OF AGE AND OLDER. Performed By: #### [id number] ## ## [facility],[address] [place] [address]37 Globulin (S) [Mass/Vol] 3.3 1.5 - 3.8 G/DL Normal 2019 [facility] ( 89451) Comment: Performed By: #### [id number] ## ## [facility],[address] [place] [address] 07457 Glucose [Mass/Vol] 96 74 - 106 mg/dl Normal 10-31-2019 [facility] ( 07913) Comment: Performed By: #### 740662 ## ## [facility],[address] [place] [address] 43268 Potassium [Moles/Vol] 3.9 3.5 - 5.1 mmol/L Normal 10-31-19 [facility] ( 19585) Comment: Performed By: #### [id number] ## ## [facility],[address] [place] [address] 02436 Protein [Mass/Vol] 7.7 6.4 - 8.3 g/dl Normal 10-31-2019 [facility] ( 32093) Comment: Performed By: #### [id number] ## ## [facility],[address] [place] [address] 40871 Sodium [Moles/Vol] 137 136 - 145 mmol/l Normal 10-31-2019 [facility] ( 40894) Comment: Performed By: #### 899503 ## ## [facility] [facility],[address] [place] [address] 78739 Urea nitrogen [Mass/Vol] 18 6 - 20 mg/dl Normal 10-31 [facility] ( 21210) Comment: Performed By: #### [id number] ## ## [facility],[address] [place] [address] 29298 cbc + diff on 10-31 Basophils (Bld) 0.20 0.00 - 0.10 x10EE3/UL High 10-31-2019 [facility] [#/Vol] [facility] (73140) Comment: Performed By: #### [id number] ## ## [facility],[address] [place] [address] 31754 Basophils/100 WBC (Bld) 2.0 0.0 - 2.0 % Normal 2019 [facility] ( 55001) Comment: Performed By: #### [id number] ## ## [facility],[address] [place] [address] 12006 CBC + DIFF Normal 10-31-2019 [facility] (97214) Comment: Result Comment: CBC-COMPLETE BLOOD COUNT Performed By: #### [id number] ## ## [facility],[address] [place] [address] 18670 Eosinophils (Bld) 0.40 0.00 - 0.50 x10EE3/UL Normal 10-31-2019 [facility] [#/Vol] [facility] (02185) Comment: Performed By: #### [id number] ## ## [facility],[address] [place] [address] 12647 Eosinophils/100 WBC (Bld) 4.8 0.0 - 7.0 % Normal 10-15 [facility] ( 02726) Comment: Performed By: #### [id number] ## ## [facility],[address] [place] [address] 56790 Erythrocyte distribution 13.7 12.0 - 15.6 % Normal [facility] (RBC) [Ratio] [facility] (73291) Comment: Performed By: #### [id number] ## ## [facility],[address] [place] [address] 52844 Hematocrit (Bld) [Volume 35.8 34.0 - 46.0 % Normal [facility] ( 35161) Comment: Performed By: #### [id number] ## ## [facility],[address] [place] [address] 94456 Hemoglobin (Bld) 12.3 12.0 - 16.0 g/dl Normal 10-31-2019 [facility] [Mass/Vol] [facility] (97814) Comment: Performed By: #### [id number] ## ## [facility],[address] [place] [address] 73117 Lymphocytes (Bld) 2.70 0.80 - 2.80 x10EE3/UL Normal 10-31-2019 [facility] [#/Vol] [facility] (42058) Comment: Performed By: #### [id number] ## ## [facility],[address] [place] [address] 77713 Lymphocytes/100 WBC (Bld) 30.3 20.0 - 45.0 % Normal [facility] ( 75110) Comment: Performed By: #### [id number] ## ## [facility],[address] [place] [address] 64482 MANUAL DIFF N/A Normal 10-31-2019 [facility] (38429) Comment: Performed By: #### [id number] ## ## [facility],[address] [place] [address] 10987 MCH (RBC) [Entitic mass] 30 27 - 33 pg Normal 10-31 [facility] ( 79351) Comment: Performed By: #### [id number] ## ## [facility],[address] [place] [address] 68226 MCHC (RBC) [Mass/Vol] 34 32 - 36 X10 3 Normal 10-31-19 20 [facility] ( 04831) Comment: Performed By: #### [id number] ## ## [facility],[address] [place] [address] 38785 MCV (RBC) [Entitic vol] 88 80 - 99 fl Normal 2019 [facility] ( 21965) Comment: Performed By: #### [id number] ## ## [facility],[address] [place] [address] 26171 Monocytes (Bld) 0.50 0.20 - 1.00 x10EE3/UL Normal 10-31-2019 [facility] [#/Vol] [facility] (71698) Comment: Performed By: #### [id number] ## ## [facility],[address] [place] [address] 29482 MONOS % 5.4 0.0 - 10.0 % Normal 10-31-2019 [facility] (66095) Comment: Performed By: #### [id number] ## ## [facility],[address] [place] [address] 20862 Morphology Adrian (Bld) [Interp] N/A Normal 10-31-2019 [facility] ( 55420) Comment: Performed By: #### [id number] ## ## [facility],[address] [place] [address] 50509 Neutrophils (Bld) 5.10 1.50 - 7.10 x10EE3/UL Normal 10-31-2019 [facility] [#/Vol] [facility] (94351) Comment: Performed By: #### [id number] ## ## [facility],[address] [place] [address] 25996 Neutrophils/100 WBC (Bld) 57.5 46.0 - 76.0 % Normal [facility] ( 58241) Comment: Performed By: #### [id number] ## ## [facility],[address] [place] [address] 79287 Platelet mean volume 8.9 6.6 - 10.5 fl Normal 10-31-19 20 [facility] (d) [Entitic vol] [facility] (06141) Comment: Result Comment: AUTOMATED DI FFERENTIAL Performed By: #### [id number] ## ## [facility],[address] [place] [address] 73622 Platelets (Bld) 280 150 - 450 x10EE3/UL Normal 10-31-2019 [facility] [#/Vol] [facility] (46326) Comment: Performed By: #### [id number] ## ## [facility],[address] [place] [address] 72614 RBC (Bld) [#/Vol] 4.06 4.10 - 5.30 x 10EE6/UL Low 0 [facility] ( 89823) Comment: Performed By: #### [id number] ## ## [facility],[address] [place] [address] 42121 WBC (Bld) [#/Vol] 8.8 4.5 - 10.8 x 10EE3/UL Normal 10-31-2019 [facility] ( 87922) Comment: Performed By: #### [id number] ## ## [facility] [address]89[address] hemogram on 2019-09 Erythrocyte distribution 13.6 11.5-14.5 % Normal 10-08 [facility] width (RBC) [Ratio] (29319) Comment: Performed By: #### BMP3M, MG 3, HEMOG #### [facility] [address] [place], [place] Hematocrit (Bld) [Volume 33.3 35.0-47.0 % Low 10-08 [facility] fraction] (02572) Comment: Performed By: #### BMP3M, MG 3, HEMOG #### [facility] [address] [place], [place] Hemoglobin (Bld) [Mass/Vol] 11.3 11.7-16.0 g/dL Low [facility] (06255) Comment: Performed By: #### BMP3M, MG 3, HEMOG #### [facility] [address] [place], [place] MCH (RBC) [Entitic mass] 30.4 26.0-34.0 pg Normal 10-08 [facility] (36280) Comment: Performed By: #### BMP3M, MG 3, HEMOG #### [facility] [address] [place], [place] MCHC (RBC) [Mass/Vol] 33.9 32.0-36.0 % Normal 10-08-19 [facility] (90650) Comment: Performed By: #### BMP3M, MG 3, HEMOG #### [facility] [address] [place], [place] MCV (RBC) [Entitic vol] 89.9 79.0-98.0 fL Normal 2019 [facility] (64034) Comment: Performed By: #### BMP3M, MG 3, HEMOG #### [place] [address] [place], [place] Platelet mean volume (Bld) 9.5 7.4-10.4 fL Normal [facility] [Entitic vol] (04107 ) Comment: Performed By: #### BMP3M, MG 3, HEMOG #### [facility] [address] [place], [place] Platelets (Bld) [#/Vol] 240 140-440 10*3/uL Normal 2019 [facility] (20951) Comment: Performed By: #### BMP3M, MG 3, HEMOG #### [facility] [address] [place], [place] RBC (Bld) [#/Vol] 3.70 3.80-5.20 10*6/uL Low 10-08-2019 [facility] (17043) Comment: Performed By: #### BMP3M, MG 3, HEMOG #### [place] [address] [place], [place] WBC (Bld) [#/Vol] 18.5 3.6-10.7 10*3/uL High 10-08-2019 [facility] (10257) Comment: Performed By: #### BMP3M, MG 3, HEMOG #### [facility] [address] [place], [place] ts gel on 2019-09-15 4 TS GEL ABO Group: Normal 10-07-2019 [facility] (74352) O Rh, Gel: POS Antibody Screen Gel: NEG Comment: Performed By: #### BMP3M, MG 3, HEMOG #### [facility] [address] [place], [place] surgical pathology on 2019-10-07 Surgical [id number] Normal 10-07-2019 [facility] Pathology [facility] DEPARTMENT OF [facility] System PATHOLOGY AND (50906 ) LABORATORY MEDICINE [address] [place] [address] FINAL SURGICAL PATHOLOGY REPORT NAME: SALLY MCGREGOR : 1980 39 Y [place] CRISTOBAL NO.: [id number] LOCATION: I 5117 01 PROCEDURE 10/07/2019 DATE: [...] the clinical labor atories of [facility]. They have not been cleared by the [facility] od and Drug Administration (FDA). The FDA [...] Results should be interpreted with caution given [facility] raised possibility of false negativity on decalcified specimens. Professional Performing Location: [address] [address]. DEPARTMENT OF PATHOLOGY AND LABORATORY MEDICINE [place], [place] [address] op note on Op Note PATIENT: SALLY MCGREGOR - [facility] (98442) ADMISSION DATE: 10/07/2019 SURGERY DATE: 10/07/2019 DATE [...] mass from a prior exam done in [facility] office. She underwent abdominal prep and drape [...] with a minimal EBL. Diskriter Job ID: [id number] Delon Palacios MD DOD:10/07/2019 10:46 A /semaj DOT:10/07/2019 12:51 P Job Number: [id number] Document Number: [id number] cc: Delon Palacios MD [employer] [facility] [address] Lui Harris MD [address] [place] [address], [address] [facility] [address] follicle stim hormone on 2019-09-15 Follicle Stim Hormone 6.5 m[IU]/mL Normal 09-15-19 [facility] (99191) Comment: Result Comment: Females: Follicular Phase ...... 2.3- 12.6 Mid-cycle Peak ........ 5.2- 17.5 Luteal Phase .......... 1.7- 12.9 Post-menopausal ....... 12.7 -132.2 Males: 0.7-10.8 Performed By: #### FSH3 #### [facility] [address] [place] [address] us pelvis ta/tv on 2019-09-11 US Pelvis TA/TV Patient Name: SALLY MCGREGOR 09-11-2019 [facility] (39428 ) Ultrasound Exam Date/Time 09/11/2019 14:17:16 EST Exam US Pelvis TA/TV Ordering Physician MARLA ARNDT REBECCA E. Accession Number [id number] CPT4 Codes 70062 (US Pelvis TA/TV), 28970 (US Transvaginal) Reason For Exam right ovarian mass seen on CT, s/p hysterectomy Report EXAMINATION: Transabdominal and transvaginal pelvic ultrasound. COMPARISON: CT scan of 09/11/2019 from [facility]. REASON FOR STUDY: Right ovarian mass; [...] Baso Cnt 0.0 0.0-0.2 10*3/uL Normal 09-05-2019 [facility] (87438) Comment: Performed By: #### HEMDF, BM P3 #### [facility] [address] [place] [address] Abs Neutrophile Cnt 3.9 1.8-7.0 10*3/uL Normal 09-05-2019 [facility] (25725) Comment: Performed By: #### HEMDF, BM P3 #### [facility] [address] [place] [address] Basophils/100 WBC (Bld) 0.3 0.0-2.0 % Normal 2018 [facility] (99800) Comment: Performed By: #### HEMDF, BM P3 #### [place] [address] [place] [address] Eosinophils (Bld) [#/Vol] 0.2 0.0-0.5 10*3/uL Normal 08-15 [facility] (74654) Comment: Performed By: #### HEMDF, BM P3 #### [facility] [place] [address] Eosinophils/100 WBC (Bld) 3.3 1.0-6.0 % Normal 08-15 [facility] (26315) Comment: Performed By: #### HEMDF, BM P3 #### [place] [address] [place] [address] Erythrocyte distribution 12.9 11.5-14.5 % Normal 09-05 [facility] width (RBC) [Ratio] (51700) Comment: Performed By: #### HEMDF, BM P3 #### [place] [address] [place] [address] Granulocytes/100 WBC (Bld) 55.5 40.0-80.0 % Normal [facility] (53014) Comment: Performed By: #### HEMDF, BM P3 #### [place] [address] [place] [address] Hematocrit (Bld) [Volume 34.8 35.0-47.0 % Low 09-05 [facility] fraction] (73604) Comment: Performed By: #### HEMDF, BM P3 #### [facility] [address] [place] [address] Hemoglobin (Bld) [Mass/Vol] 11.5 11.7-16.0 g/dL Low [facility] (34675) Comment: Performed By: #### HEMDF, BM P3 #### [place] [address] [place] Lymphocytes (Bld) [#/Vol] 2.5 1.0-4.3 10*3/uL Normal 08-15 [facility] (75727) Comment: Performed By: #### HEMDF, BM P3 #### [place] [address] [place] Lymphocytes/100 WBC (Bld) 35.4 20.0-40.0 % Normal 08-15 [facility] (05267) Comment: Performed By: #### HEMDF, BM P3 #### [place] [address] [place] MCH (RBC) [Entitic mass] 29.9 26.0-34.0 pg Normal 09-05 [facility] (40380) Comment: Performed By: #### HEMDF, BM P3 #### [place] [address] [place] MCHC (RBC) [Mass/Vol] 33.0 32.0-36.0 % Normal 09-05-20 19 [facility] (65963) Comment: Performed By: #### HEMDF, BM P3 #### [place] [address] [place] MCV (RBC) [Entitic vol] 90.7 79.0-98.0 fL Normal 2018 [facility] (23824) Comment: Performed By: #### HEMDF, BM P3 #### [place] [address] [place] Monocytes (Bld) [#/Vol] 0.4 0.0-0.8 10*3/uL Normal 2018 [facility] (50751) Comment: Performed By: #### HEMDF, BM P3 #### [facility] [address] [place] [address] Monocytes/100 WBC (Bld) 5.5 2.0-10.0 % Normal 2018 [facility] (46095) Comment: Performed By: #### HEMDF, BM P3 #### [facility] [place] [address] [address] [place], [place] Platelet mean volume (Bld) 9.8 7.4-10.4 fL Normal [facility] [Entitic vol] (07810 ) Comment: Performed By: #### HEMDF, BM P3 #### [place] [address] [place] Platelets (Bld) [#/Vol] 204 140-440 10*3/uL Normal 2018 [facility] (41485) Comment: Performed By: #### HEMDF, BM P3 #### [place] [address] [place] RBC (Bld) [#/Vol] 3.83 3.80-5.20 10*6/uL Normal 09-05-2019 [facility] (85452) Comment: Performed By: #### HEMDF, BM P3 #### [place] [address] [place] WBC (Bld) [#/Vol] 7.0 3.6-10.7 10*3/uL Normal 09-05-2019 [facility] (07479) Comment: Performed By: #### HEMDF, BM P3 #### [place] [address] [place], [place] cr urography retrograde w/ + w/o kub on 2019-09-05 CR Urography Patient Name: SALLY MCGREGOR Normal 09-05-2019 [facility] Retrograde w/ + w/o System (99384) KUB Diagnostic Radiology Exam Date/Time 09/05/2019 08:12:21 EST Exam CR Urography Retrograde w/ + w/o KUB Ordering Physician MAUREEN STONE Accession Number [id number] CPT4 Codes 47531 () Reason For Exam Renal stone fluro c arm c and p Report A total of 1 minute and 11 seconds of fluoro time was used in the Operating Suite for this procedure. No other report will be generated. Final Signed Date and Time: 09/26/2019 2:02 pm Signed by: INSIDE TECHNICAL SALES REPRESENTATIVE, SYSTEM Transcribed Date and Time: 09/26/2019 1:19 Transcribed By:KRISTAN basic metabolic panel on 2019-09-05 Calcium [Mass/Vol] 8.7 8.4-10.4 mg/dL Normal 09-05-2019 [facility] (79273) Comment: Performed By: #### HEMDF, BM P3 #### [facility] [address] [place] [address] Anion gap [Moles/Vol] 7 Normal 09-05-20 [facility] (59184) Comment: Performed By: #### HEMDF, BM P3 #### [facility] [address] [place] [address] CO2 [Moles/Vol] 24 22-30 mmol/L Normal 09-05-2019 [facility] (64639) Comment: Performed By: #### HEMDF, BM P3 #### [facility] [address] [place] [address] Creatinine [Mass/Vol] 0.79 0.52-1.25 mg/dL Normal 09-05-20 [facility] (50021) Comment: Performed By: #### HEMDF, BM P3 #### [facility] [address] [place] [address] GFR/1.73 sq M > 60.0 >60 mL/min/{1.73_m2} Normal 9 [facility] predicted among Syst em (69012) blacks MDRD (S/P/Bld) [Vol rate/Area] Comment: Performed By: #### HEMDF, BM P3 #### [facility] [address] [place] [address] GFR/1.73 sq M > 60.0 >60 mL/min/{1.73_m2} Normal 9 [facility] predicted among Syst em (68819) non-blacks MDRD (S/P/Bld) [Vol rate/Area] Comment: Result Comment: Source- MDRD equation with creatinine calibration to IDMS(NKDEP) eGFR not recommended for dylon g dose adjustment Performed By: #### HEMDF, BM P3 #### [facility] [place] [address] [address] [place], [place] Glucose [Mass/Vol] 85 70-100 mg/dL Normal 09-05-2019 [facility] (61130) Comment: Performed By: #### HEMDF, BM P3 #### [facility] [place] [address] [address] [place], [place] Urea nitrogen [Mass/Vol] 5 7-20 mg/dL Low 09-05 [facility] (07731) Comment: Performed By: #### HEMDF, BM P3 #### [facility] [place] [address] [place] Chloride [Moles/Vol] 108 98-107 mmol/L High 9 [facility] (64915) Comment: Performed By: #### HEMDF, BM P3 #### [facility] [address] [address] [place], [place] Potassium [Moles/Vol] 4.0 3.5-5.1 mmol/L Normal 09-05-20 19 [facility] (37719) Comment: Performed By: #### HEMDF, BM P3 #### [facility] [place] [address] [address] [place] Sodium [Moles/Vol] 140 135-145 mmol/L Normal 09-05-2019 [facility] (10480) Comment: Performed By: #### HEMDF, BM P3 #### [facility] [place] [address] [address] [place], [place] magnesium on 2018-09-22 Magnesium [Mass/Vol] 1.9 1.6-2.3 mg/dL Normal 9 [facility] (51449) Comment: Performed By: #### BMP3M, MG 3, HEMOG #### [facility] [address] [place], [place] hemogram on 2019-08 Erythrocyte distribution 13.2 11.5-14.5 % Normal 09-04 [facility] width (RBC) [Ratio] (36943) Comment: Performed By: #### BMP3M, MG 3, HEMOG #### [facility] [address] [place], [place] Hematocrit (Bld) [Volume 36.7 35.0-47.0 % Normal 09-04 [facility] fraction] (75591) Comment: Performed By: #### BMP3M, MG 3, HEMOG #### [facility] [address] [place], [place] Hemoglobin (Bld) 12.3 11.7-16.0 g/dL Normal 09-04-2019 [facility] [Mass/Vol] (68077) Comment: Performed By: #### BMP3M, MG 3, HEMOG #### [facility] [address] [place], [place] MCH (RBC) [Entitic mass] 30.6 26.0-34.0 pg Normal 09-04 [facility] (26263) Comment: Performed By: #### BMP3M, MG 3, HEMOG #### [place] [address] [place] MCHC (RBC) [Mass/Vol] 33.5 32.0-36.0 % Normal 09-04-20 19 [facility] (95248) Comment: Performed By: #### BMP3M, MG 3, HEMOG #### [facility] [address] [place] MCV (RBC) [Entitic vol] 91.3 79.0-98.0 fL Normal 2018 [facility] (63473) Comment: Performed By: #### BMP3M, MG 3, HEMOG #### [facility] [address] [place], [place] Platelet mean volume (Bld) 10.4 7.4-10.4 fL Normal [facility] [Entitic vol] (47238 ) Comment: Performed By: #### BMP3M, MG 3, HEMOG #### [facility] [address] [place], [place] Platelets (Bld) [#/Vol] 211 140-440 10*3/uL Normal 2018 [facility] (79229) Comment: Performed By: #### BMP3M, MG 3, HEMOG #### [facility] [address] [place], [place] RBC (Bld) [#/Vol] 4.02 3.80-5.20 10*6/uL Normal 09-04-2019 [facility] (64237) Comment: Performed By: #### BMP3M, MG 3, HEMOG #### [place] [address] [place], [place] WBC (Bld) [#/Vol] 7.1 3.6-10.7 10*3/uL Normal 09-04-2019 [facility] (65011) Comment: Performed By: #### BMP3M, MG 3, HEMOG #### [place] [address] [place], [place] culture urine on 01-09-22 CULTURE URINE CULTURE URINE --> Status: F Normal 09-04-2019 [facility] No growth (<1,000 CFU/ml). (66775) Comment: Order Comment: Specimen Sour ce Comment:Urine, clean catch Performed By: #### C/UR #### [place] [address] [place], [place] basic metabolic panel on 2019-09-04 Potassium [Moles/Vol] 3.5 3.5-5.1 mmol/L Normal 09-04-20 [facility] (48716) Comment: Performed By: #### BMP3M, MG 3, HEMOG #### [facility] [address] [place], [place] Anion gap [Moles/Vol] 9 Normal 09-04-20 [facility] (60164) Comment: Performed By: #### BMP3M, MG 3, HEMOG #### [facility] [address] [place], [place] Calcium [Mass/Vol] 8.8 8.4-10.4 mg/dL Normal 09-04-2019 [facility] (24274) Comment: Performed By: #### BMP3M, MG 3, HEMOG #### [place] [address] [place] CO2 [Moles/Vol] 26 22-30 mmol/L Normal 09-04-2019 [facility] (17550) Comment: Performed By: #### BMP3M, MG 3, HEMOG #### [place] [address] [place] Glucose [Mass/Vol] 76 70-100 mg/dL Normal 09-04-2019 [facility] (72028) Comment: Performed By: #### BMP3M, MG 3, HEMOG #### [place] [address] [place] Urea nitrogen [Mass/Vol] 10 7-20 mg/dL Normal 09-04 [facility] (97105) Comment: Performed By: #### BMP3M, MG 3, HEMOG #### [place] [address] [place] Creatinine [Mass/Vol] 0.81 0.52-1.25 mg/dL Normal 09-04-20 19 [facility] (96145) Comment: Performed By: #### BMP3M, MG 3, HEMOG #### [place] [address] [place] GFR/1.73 sq M > 60.0 >60 mL/min/{1.73_m2} Normal 9 [facility] predicted among Syst em (83885) blacks MDRD (S/P/Bld) [Vol rate/Area] Comment: Performed By: #### BMP3M, MG 3, HEMOG #### [place] [address] [place] GFR/1.73 sq M > 60.0 >60 mL/min/{1.73_m2} Normal 9 [facility] predicted among Syst em (04194) non-blacks MDRD (S/P/Bld) [Vol rate/Area] Comment: Result Comment: Source- MDRD equation with creatinine calibration to IDMS(NKDEP) eGFR not recommended for dylon g dose adjustment Performed By: #### BMP3M, MG 3, HEMOG #### [facility] [address] [place], [place] Sodium [Moles/Vol] 138 135-145 mmol/L Normal 09-04-2019 [facility] (76010) Comment: Performed By: #### BMP3M, MG 3, HEMOG #### [facility] [address] [place] Chloride [Moles/Vol] 103 98-107 mmol/L Normal 9 [facility] (31847) Comment: Performed By: #### BMP3M, MG 3, HEMOG #### [facility] [address] [place], [place] cr abdomen ap on 01-09-21 CR Abdomen AP Patient Name: SALLY MCGREGOR 09-03-2019 [facility] (59457 ) Diagnostic Radiology Exam Date/Time 09/03/2019 17:35:36 EST Exam CR Abdomen AP Ordering Physician MD RACH,CONCHIS J Accession Number [id number] CPT4 Codes 24315 () Reason For Exam nephrolithiasis Report ABDOMEN, [...] on 2019-08-03 [facility] Letter Text Normal 08-03-2019 [facility] (24840) xr sacrum/coccyx 3v ap/lat on 2019-07-21 XR SACRUM/COCCYX 3V * * *Final Report* * * Normal 07-21-2019 [facility] AP/LAT DATE OF EXAM: Jul 21 2019 11:38AM [facility] WOX 5246 - XR SACRUM/COCCYX 3V AP/LAT / 4 [facility] PROCEDURE REASON: multiple diagnoses (90382) * * * * Physician Interpretation * [...] BONY ABNORMALITY IN THE PELVIS SEGMENT COCCYX. Sign Writer Letterer Or Painter: PSCB Transcribe Date/Time: Jul 21 2019 4:01P Dictated by : ESTEE CUMMINGS MD This examination was interpreted and the report reviewed and electronically signed by: ESTEE CUMMINGS MD on Jul 21 2019 4:06PM EST [id number] xr lumbar 3v ap/lat/l5-s1 on 2019-07-21 XR LUMBAR 3V * * *Final Report* * * Normal [place]ata AP/LAT/L5-S1 DATE OF EXAM: Jul 21 2019 11:38AM [facility] WOX [id number] - XR LUMBAR 3V AP/LAT/L5-S1 / [place] PROCEDURE REASON: multiple diagnoses ([id number]) * * * * Physician Interpretation * [...] BONY ABNORMALITY IN THE PELVIS SEGMENT COCCYX. Sign Writer Letterer [facility]ter[facility] Transcribe Date/Time: Jul 21 2019 4:01P Dictated by : ESTEE CUMMINGS MD This examination was interpreted and the report reviewed and electronically signed by: ESTEE CUMMINGS MD on Jul 21 2019 4:06PM EST [id number] tsh on 2019-07-21 TSH Qn 1.510 0.270-4.200 uU/mL Normal 07-21-2019 [facility] ([id number]) Comment: Result Comment: If the patie nt [...] et al. 2017 Guide lines of the [place] Thyroid Association for the Diagnosis and Management of Thyroid Disease during and the . Thyroid, 2017:27:3:315-389. Performed By: #### HBA1C, TS Julieth, MORIAH #### [facility] Labor[facility] s [address] [place] [id number] progress on 2019-07 PROGRESS HNO ID: [id number] Normal 07-21-2019 [facility] Author: Elena Stauffer [facility] ([id number]) Service: ? Author Type: ? Type: Progress [...] 21, 2019 11:23 AM PROGRESS HNO ID: [id number] Normal 07-21-2019 [facility] Author: Randi Arias [facility] ([id number]) Service: ? 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 No pain. No elevated LFTs on 03/11/2010. - Calculus of kidney 05/17/[address] Nicolas: Hospitalized age 20, and again later -- no procedures so far ([facility], [facility], 1995 [facility]) - Dysmenorrhea - Impaired fasting glucose [...] ABDOM HYSTERECTOMY 08/31/06 Hysterectomy, [facility] Family History FAMILY HISTORY Problem [...] Male control/protection: Surgical Comment: [facility] Lifestyle Physical activity: Days per week: Not on file Minutes per session: Not on file Stress: Not on file Relationships Social connections: Talks on phone: Not on file Gets together: Not on file Attends amish service: Not on file Active member of [...] [Mass/Vol] 206 <200 mg/dL High 019 [facility] ([id number]) Comment: Result Comment: <200 mg/dL, Desirable 200-239 mg/dL, Borderline hi gh >239 mg/dL, High Performed By: #### HBA1C, TS H, LIPNF #### [facility] Labor[facility] [address] [place], [place] [address] Cholesterol in 2.39 <2.54 mg/dL Normal 07-21-2019 [facility] LDL/Cholesterol in HDL [Mass [facility] (89721) ratio] Comment: Result Comment: Reference: 1. National Cholesterol Educ ation Program ATP III Guideline At-A-Glance Quick Desk Reference: National Heart, Lung, and Blood [place]. National Institutes of Health. 2001: NIH Publication No. 01-3305. 2. An International Atherosc lerosis Society position paper: global recommendations for the management of dyslipidemia: executive summary, Atherosclerosis. 2014: 232(2):410-413. Performed By: #### HBA1C, TS H, LIPNF #### [facility] [address] [place], [place] [address] Cholesterol.total/Cholesterol in 4.04 <5.10 mg/dL Normal 07-21-2019 [facility] HDL [Mass ratio] Cli nghia [facility] ([id number]) Comment: Performed By: #### HBA1C, TS H, LIPNF #### [facility] [address] [place], [place] [address] HDL Cholesterol, NF 51 >39 mg/dL Normal 07-21-2019 [facility] ([id number]) Comment: Result Comment: 40-59 mg/dL, Acceptable >59 mg/dL, High: Negative ri sk factor for coronary heart disease <40 mg/dL, Low: Positive ris k factor for coronary heart disease Performed By: #### HBA1C, TS H, LIPNF #### [facility] [address] [place], [place] [address] LDL Cholesterol, NF 122 <100 mg/dL High 07-21-2019 [facility] (18713) Comment: Result Comment: <100 mg/dL, Optimal 100-129 mg/dL, Near optimal/ above optimal 130-159 mg/dL, Borderline hi gh 160-189 mg/dL, High >189 mg/dL, Very high Secondary prevention optimal LDL Cholesterol levels are recommended to be < 70 mg/dL Performed By: #### HBA1C, TS H, LIPNF #### [facility] Labor[facility] s [address] [place] [address] Non HDL Chol, NF 155 <130 mg/dL High 07-21-2019 [facility] ([id number]) Comment: Result Comment: <130 mg/dL, Optimal 130-159 mg/dL, Near optimal/ above optimal 160-189 mg/dL, Borderline hi gh 190-219 mg/dL, High >219 mg/dL, Very high Secondary prevention optimal non HDL Cholesterol levels are recommended to be < 100 mg/dL Performed By: #### HBA1C, TS H, LIPNF #### [facility] [address] [place] [address] Triglycerides, NF 163 <150 mg/dL High 07-21-2019 [facility] ([id number]) Comment: Result Comment: <150 mg/dL, Normal 150-199 mg/dL, Borderline hi gh 200-499 mg/dL, High >499 mg/dL, Very high Performed By: #### HBA1C, TS H, LIPNF #### [facility] [address] [place] [address] VLDL Cholesterol, NF 33 <30 mg/dL High 9 [facility] (20588) Comment: Performed By: #### HBA1C, TS H, LIPNF #### [facility] [address] [place] [address] hemoglobin a1c on HbA1c (Bld) [Mass fraction] 5.3 4.3-5.6 % Normal [facility] (55056) Comment: Result Comment: [place] Marya betes Association guidelines indicate that patients with HgbA1c in the range 5.7-6.4% are at increased risk for development of diabetes, and intervention by lifestyle modification may be beneficial. HgbA1c greater o r equal to 6.5% is considered diagnostic of diabetes. Performed By: #### HBA1C, TS H, LIPNF #### [facility] [address] [place] [address] HbA1c (Bld) [Mass fraction] 105 mg/dL Normal [facility] (71739) Comment: Result Comment: eAG: (Jaimiea arnie average glucose) is a calculated value from HgbA1c and is senior customer service representative of the average blood glucose level in the last 2-3 month period. Performed By: #### HBA1C, TS H, LIPNF #### [facility] [address] [place], [place] [id number] cnov on 2019-07-21 CNOV Office Visit (FAMPWS) Normal 07-21-20 [facility] SALLY MCGREGOR ([id number]) 1980 [facility] Date Time Provider Department ([id number]) 07/21/19 10:40 AM JAY ARIAS) FAMPWS During [...] Benign liver cyst 05/24/2010 CT scan at [facility] 11/2009 and 04/2010 showe 4 mm increase in size . No pain. No elevated LFTs on 03/11/2010. - Calculus of kidney 05/17/[address] Nicolas: Hospitalized age 20, a nd again later -- no procedures so far ([facility], [facility], [facility]) - Dysmenorrhea - Impaired fasting glucose [...] ABDOM HYSTERECTOMY 08/31/06 Hysterectomy, [facility] Family History FAMILY HISTORY Problem [...] Male control/protection: Surgical Comment: [facility] Lifestyle Physical activity: Days per week: Not on file Minutes per session: Not on file Stress: Not on file Relationships Social connections: Talks on phone: Not on file Gets together: Not on file Attends amish service: Not on file Active member of [...] Z13.6] Order(s):CONSULT TO NEUROLOGY [9019] Order #: [id number]: 1 FUTURE amitriptyline (ELAVIL) 50 mg tabletTake 1 tablet by mouth da federico at bedtime.Disp: 30 tabletRfl: 5 XR LUMBAR GENERAL 3V AP/LAT/L5-S1 [[id number]] Order #: [id number] FUTURE XR SACRUM/COCCYX 3V AP/LAT [[id number]] Order #: [id number] FUT URE TSH BLD [SQTSH] Order #: [id number] FUTURE HGB A1C [XBPBX4W] Order #: [id number] FUTURE LIPID PANEL, NONFASTING [SQLIPNF] Order #: [id number] FUTURE cyclobenzaprine (FLEXERIL) 10 mg tabletTake 1 [...] - 3. Body Temperature 97.81 [degF] 05-17-2020 [facility] (02614) Body Temperature 97.9 [degF] 05-08-2020 [facility] (74766) Body weight 89.9 kg 05-17-2020 [facility] (55352) Body weight 93.89 kg 05-08-2020 [facility] (61135) BP Diastolic 82 mm[Hg] 05-17-2020 [facility] (48219) BP Diastolic 76 mm[Hg] 05-08-2020 [facility] (99482) BP Systolic 124 mm[Hg] 05-17-2020 [facility] (05763) BP Systolic 121 mm[Hg] 05-08-2020 [facility] (18424) Height 154.9 cm 05-08-2020 [facility] (44306) Pulse (Heart Rate) 86 /min [facility]-17-[facility]21099[facility] Pulse (Heart Rate) 91 /min 05-08-2020 [facility] nghia (66530) Pulse Oximetry 97 % 05-08-2020 [facility] (69092) Respiratory Rate 16 /min [facility]-17-2020 [facility]06220[facility] Respiratory Rate 18 /min 05-08-2020 [facility] (37219) Encounters Date Type Reason Provider Location 06-25-2020 - Chart abstracting Postoperative pain Noaman Tanesha [facility] 06-25-2020 [facility] Comment: Refill Request 05-23-2020 - E-mail encounter Isabel Romero) [facility] 05-23-2020 from carer Hugo 03-24-2020 - Emergency Migraine, CORBY Johnston 03-24-2020 department unspecified, not [facility] patient visit intractableCORBY ([id number]) without status [facility] migrainosus CORBY M OLVIN ARIAS UNKNOWN PROVIDER 01-21-2020 - Emergency ANA Johnston 01-21-2020 [facility] ANA ALVARADO ([id number]) JENNIFER ARIAS UNKNOWN PROVIDER 11-25-2019 - Emergency ANA Johnston 11-25-2019 department [facility] al patient visit ANA ALVARADO ([id number]) JENNIFER ARIAS UNKNOWN PROVIDER 10-31-2019 - Emergency Lower abdominal NIKHIL Moreira e 10-31-[facility] unspecified NIKHIL Shannon ([id number]) JEAN ARIAS UNKNOWN PROVIDER 04-26-2020 - Letter encounter Johnny [facility]cc[facility] 04-26-2020 [facility] 05-14-2020 - Orders Only Liver cyst [facility]cc[facility]: Liver [facility] (Primary Dx) 05-11-2020 - Orders Only Idiopathic acute Johnny Mccall [facility] 05-11-2020 pancreatitis Winn Comment: Idiopathic acute pancreatiti s, unspecified complication status (Primary Dx) surgical referral 05-10-2020 - Orders Only Idiopathic acute [facility]cc[facility] [place] 05-10-2020 pancreatitis Winn Comment: Idiopathic acute pancreatiti s, unspecified complication status (Primary Dx) 06-05-2020 - Patient encounter Cyst of pancreas Mala [facility] 06-05-2020 procedure [facility] Comment: Pancreatic cyst (Primary Dx) 05-30-2020 - Patient [facility] Provider Adolfo lyle 05-30-2020 encounter procedure 05-24-2020 - Patient Abdominal Johnny Mccall Gastroenterolog y 05-24-2020 encounter bloating [facility] procedure Comment: Bloating (Primary Dx); Nausea and vomiting, intract ability of vomiting not specified, unspecified vomiting type; Diarrhea, unspecified type 05-23-2020 Patient encounter Postoperative pain Isabel Romero) [facility] procedure Arias [facility] Comment: RE: Appointment Request 05-17-2020 - Patient encounter Shoulder pain Xr [facility] [place] [facility] 05-17-2020 procedure Kenia (Jaki) Bartolo Bernard (Jaki) Bartolo Comment: Radiology XR Acute pain of right shoulder (Primary Dx) 04-30-2020 - Patient encounter Generalized abdominal Us [facility] adiology 04-30-2020 procedure pain Mob 1 Comment: Radiology US 05-30-2020 Results Only [facility] Provider [facility] Department 05-08-2020 - Subsequent Generalized Johnny Mccall Ambulatory 05-08-2020 hospital visit by abdominal pain [facility] Surgery physician Comment: Generalized abdominal pain [ R10.84] 06-05-2020 - Telemedicine Mala Almendarez [facility] c 06-05-2020 consultation with patient 05-24-2020 - Telemedicine Johnny Mccall [facility] 05-24-2020 consultation with Hannah patient 06-15-2020 - Telephone encounter Local infection Taty (Criminal Legal Assistant [facility] 06-15-2020 of wound [employer] Builder) [facility] SURGERY DEPARTMENT Comment: Multiple Concerns 05-31-2020 - Telephone encounter Johnny Mccall Gastroen terology [facility] 05-31-[address] [facility] Comment: Patient Update 05-18-2020 - Telephone Shoulder pain Marcelino Mejia [facility] luke 05-18-2020 encounter [place] Comment: Referral Request 05-07-2020 - Telephone encounter Johnny Mccall Gastroen [facility] 05-07-[address] [facility] Comment: Patient Update 05-01-2020 - Telephone encounter Johnny Mccall Gastroen [facility] 05-01-[address] [facility] Comment: Results 04-30-2020 - Telephone encounter Johnny Mccall Gastroen terology [facility] 04-30-[address] [facility] Comment: Returning Patient's Call 04-27-2020 - 04-27-2020 Telephone encounter Marcelino Mejia [facility] Comment: Medication request Procedures Procedure Name Date Provider Location Antibody screen 06-11-2020 [facility] ([id number]) Comment: Performed By: #### CBCD1 ### # [place] [address] CARDIAC 05-30-2020 [facility] Provider [facility] (03320) Radex shoulder complete minimum 2 05-17-2020 - Kenia (Jaki) [facility] views 05-17-2020 Workman ([id number]) SURGICAL PATHOLOGY 05-08-2020 Johnny Mccall [facility] (26342) Colonoscopy flx dx w/collj spec 05-08-2020 [facility] Provider [facility] when pfrmd (39694) Esophagogastroduodenoscopy 05-08-2020 [facility] Provider [facility] transoral diagnostic (15139) Us abdominal real time w/image 04-30-2020 - Johnny Mccall [facility] limited 04-30-2020 [facility] (63305) Urinalysis 10-31-2019 [facility] l (73094) Comment: Result Comment: URINALYSIS Performed By: #### [id number] ## ## [facility],[address] [place] [address] Plan of Treatment Plan Description Date Location DTAP,TDAP,TD (2 - Td) DTAP,TDAP,TD (2 - Td) 05-28-2025 - [facility] 05-28-2025 ([id number]) INFLUENZA (#1) INFLUENZA (#1) 2020 - [facility] 05-15-2020 (67633) MAMMOGRAM MAMMOGRAM 2019 - [facility] 2019 (79539) COLONOSCOPY COLONOSCOPY 1997 - [facility] 1997 (60038) HEPATITIS C SCREENING HEPATITIS C SCREENING 1997 - [facility] 1997 (94972) HIV SCREENING HIV SCREENING 1997 - [facility] 1997 (33549) COLONOSCOPY - COLONOSCOPY - DIAGNOSTIC 05-08-2020 [facility] DIAGNOSTIC Endoscopy Routine (50279) Generalized abdominal pain Loose stools Dyspepsia Gastroesophageal reflux disease, esophagitis presence not specified Other dysphagia History of acute pancreatitis Bloating Nausea and vomiting, intractability of vomiting not specified, unspecified vomiting type 1 Occurrences starting 05/08/2020 until 05/08/2020 Comment: 1 Occurrences starting 05/08 until 05/08/2020 EGD EUS EGD EUS Endoscopy Routine Idiopathic 05-10-2021 [facility] (13908) acute pancreatitis, unspecified complication status 1 Occurrences starting 05/10/2020 until 05/10/2021 Comment: 1 Occurrences starting 05/10 until 05/10/2021 EGD EGD Endoscopy Routine Generalized abdominal 04-15 [facility] (70136) pain Loose stools Dyspepsia Gastroesophageal reflux disease, esophagitis presence not specified Other dysphagia History of acute pancreatitis Bloating Nausea and vomiting, intractability of vomiting not specified, unspecified vomiting type 1 Occurrences starting 05/08/2020 until 05/08/2020 Comment: 1 Occurrences starting 05/08 until 05/08/2020 MRI ABDOMEN WO/W IVCON MRI ABDOMEN WO/W IVCON 07-05-2021 [facility] (45061) Radiology Routine Pancreatic cyst 1 Occurrences starting 06/05/2020 until 07/05/2021 Comment: 1 Occurrences starting 06/05 until 07/05/2021 PRE-PROCEDURE & PRE-PROCEDURE & 05-10-2021 [facility] PRE-OPERATIVE COVID PRE-OPERATIVE COVID (74267) Microbiology Routine Idiopathic acute pancreatitis, unspecified complication status 1 Occurrences starting 05/10/2020 until 05/10/2021 Comment: 1 Occurrences starting 05/10 until 05/10/2021 SURGICAL PATHOLOGY SURGICAL PATHOLOGY Lab Routine [facility] (99177) 05/08/2020 1:17 PM EDT no information [facility] (97745) Immunizations Vaccine Notes Status Date Location Influenza Seasonal influenza, seasonal, (completed) 05-11-2020 - [facility] Age 3+ injectable 05-11-2020 (38116) Influenza Seasonal influenza, seasonal, (completed) 05-31-2019 - [facility] Age 3+ injectable 05-31-2019 (67222) Pneumovax pneumococcal (completed) 05-19-2017 - [facility] c polysaccharide vaccine, 05-19-2017 (441 95) 23 valent Tdap (Age 7+) tetanus toxoid, reduced (completed) 05-28-2015 - [facility] diphtheria toxoid, and 05-28-2015 (4419 5) acellular pertussis vaccine, adsorbed Payers Payer Name Policy Number Location [facility] [id number] [facility] OUTPATIENT ([id number]) [place] [id number] [facility] (99 525) [phone] [id number] [facility] ([phone]) [id number] [facility] (77089) [id number] [facility] ([id number]) [id number] [facility] (91519) The following information is from the original human readable contentNo Payer Records FoundNo Payer Records FoundNo Payer Records FoundNo Payer Records FoundNo Payer Records FoundNo Payer Records FoundNo Payer Records FoundNo Payer Records FoundNo Payer Records Found Social History Type Social History Date Location Description History of tobacco use Current smoker 01-12-2017 [facility] (24677) Alcohol Comment Occasional 11-26-2010 - [facility] 11-26-2010 (95331) History of tobacco use Cigarette Smoker 01-12-2017 [facility] (75712) Cigarettes smoked 05-17-2020 - [facility] current (pack per day) 06-08-2020 (43731) - Reported Tobacco use and Never used 05-17-2020 - [facility] exposure 06-08-2020 (18991) Alcohol intake Current drinker of 05-17-2020 - [facility] alcohol (finding) 06-08-2020 (94973) Tobacco Comment Approx. 3 cigarettes 03-10-2011 - [facility] daily-1 pack every week 03-10-2011 (71418) Tobacco smoking status Former smoker 05-17-2020 - [facility] NHIS 06-08-2020 (18381) Sex Assigned At Not on file [facility] (41504) Exposure to SARS-CoV-2 Not sure [facility] (event) (90523) History SDOH Financial 5 06-08-2020 - [facility] 06-08-2020 (04143) History SDOH Food Worry 1 06-08-2020 - [facility] 06-08-2020 (32755) History SDOH Transport 2 06-08-2020 - [facility] Med 06-08-2020 (68886) Exposure to SARS-CoV-2 Yes [facility] (event) (53249) The following information is from the original [...] [facility] MD documented in this encounterKenia Mcfarland ([employer]obile T[employer] Builder) - 05/17/2020 11:57 AM EDT Visit Date: May 17, 2020 Patient Name: Ms.Nichole Jeana Mcgregor Date of : 1980 MRN/E #: [id number] Chief Complaint Patient presents with: right shoulder [...] history is provided by the patient. No foreign language teacher was used. PAIN EVALUATION 05/17/2020 1153 Pain [...] Benign liver cyst 05/24/2010 CT scan at [facility] 11/2009 and 04/2010 showe 4 mm increase in size. No pain. No elevated LFTs on 03/11/2010. ? Calculus of kidney 05/17/[address] Nicolas: Hospitalized age 20, and again later -- no procedures so far ([facility], [facility]) ? Dysmenorrhea ? History of blood [...] go to the ED. Patient went to [place] ED and mentions 'nothing was done. They [...] note she presented to the ED in [place] in January 2020 for abdominal pain of [address] abdomen was essentially unremarkable including pancreas. Was found to have lipase of 193 on 02/15/2020. Amylase normal. Hepatic function panel. ? Has h/o cholecystectomy in 1998. PAST MEDICAL HISTORY Diagnosis Date ? Allergic rhinitis, cause unspecified 05/17/2008 Spring and summer ? Benign liver cyst 05/24/2010 CT scan at [facility] 11/2009 and 04/2010 showe 4 mm increase in size. No pain. No elevated LFTs on 03/11/2010. ? Calculus of kidney 05/17/[address] Nicolas: Hospitalized age 20, and again later -- no procedures so far ([facility], [facility]) ? Cancer (HCC) ? Diverticulosis ? [...] ABDOM HYSTERECTOMY 08/31/06 Hysterectomy, [facility] FAMILY HISTORY Problem Relation Age [...] the ED yesterday - she went to [place] ED and was told that pancreas levels [...] for nausea. 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(s) 05/08/2020 12:13 PM Advance Directive(s) 05/25/2020 7:47 AM Documents on File Type Date Recorded 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(s) 05/08/2020 12:13 PM Advance Directive(s) 05/25/2020 7:47 AM Advance Directive(s) 06/08/2020 9:30 AM Documents on File Type Date Recorded 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(s) 05/08/2020 12:13 PM Advance Directive(s) 05/25/2020 7:47 AM Advance Directive(s) 06/08/2020 9:30 AM Documents on File Type Date Recorded 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(s) 05/08/2020 12:13 PM [...] NEW PATIENT VISIT LEVEL 5 Mccall 1 [address] [facility] [address] [place], [place] [phone] Phone: Fax: Status Reason Specialty Diagnoses / Referred By Referred To Procedures Contact Contact Authorized PCP Requested Orthopedics Diagnoses Acute shoulder pain, unspecified laterality Marcelino Mejia Referral Procedures CONSULT TO ORTHOPAEDICS NEW PATIENT VISIT LEVEL 5 [address] [place] [address] Status Reason Specialty Diagnoses / Referred By Referred To Procedures Contact Contact Pending Review Auto-Generated MR IMAGING Diagnoses Pancreatic cyst Mala Almendarez Mr Imaging Referral Procedures MRI ABDOMEN WO/W IVCON MRI,ABDOMEN,W&WO CONTRS [address] [address] Status Reason Specialty Diagnoses / Procedures Referred By C ryan Referred To Contact Closed Diagnoses Post-op pain Mala Almendarez [address] [address] Phone: Instructions Patient InstructionsKenia Mcfarland) - 05/17/2020 [...] BE BASED ON THE PRIMARY CLINICAL RECORDS. [facility] provides no warranty or guarantee of the accuracy or completeness of information in this document. UNRECOGNIZED CONTENT PROVIDED BELOW FOR UNRECOGNIZED SECTION Source Comments In the event this information is protected by the Federal Confidentiality of Alcohol and Drug Abuse Patient Records regulations: The Federal rules restrict any use of the information to criminally investigate or prosecute any alcohol or drug abuse patient.[facility] NorthIn the event this information is protected by the Federal Confidentiality of Alcohol and Drug Abuse Patient Records regulations: The Federal rules restrict any use of the information to criminally investigate or prosecute any alcohol or drug abuse patient.[facility] NorthIn the event this information is protected by the Federal Confidentiality of Alcohol and Drug Abuse Patient Records regulations: The Federal rules restrict any use of the information to criminally investigate or prosecute any alcohol or drug abuse patient.[facility] NorthIn the event this information is protected by the Federal Confidentiality of Alcohol and Drug Abuse Patient Records regulations: The Federal rules restrict any use of the information to criminally investigate or prosecute any alcohol or drug abuse patient.[facility] NorthIn the event this information is protected by the Federal Confidentiality of Alcohol and Drug Abuse Patient Records regulations: The Federal rules restrict any use of the information to criminally investigate or prosecute any alcohol or drug abuse patient.[facility] NorthIn the event this information is protected by the Federal Confidentiality of Alcohol and Drug Abuse Patient Records regulations: The Federal rules restrict any use of the information to criminally investigate or prosecute any alcohol or drug abuse patient.[facility] NorthIn the event this information is protected by the Federal Confidentiality of Alcohol and Drug Abuse Patient Records regulations: The Federal rules restrict any use of the information to criminally investigate or prosecute any alcohol or drug abuse patient.[facility] NorthIn the event this information is protected by the Federal Confidentiality of Alcohol and Drug Abuse Patient Records regulations: The Federal rules restrict any use of the information to criminally investigate or prosecute any alcohol or drug abuse patient.[facility] NorthIn the event this information is protected by the Federal Confidentiality of Alcohol and Drug Abuse Patient Records regulations: The Federal rules restrict any use of the information to criminally investigate or prosecute any alcohol or drug abuse patient.[facility] NorthIn the event this information is protected by [...] or prosecute any alcohol or drug abuse patient.[facility] NorthIn the event this information is protected by the Federal Confidentiality of Alcohol and Drug Abuse Patient Records regulations: The Federal rules restrict any use of the information to criminally investigate or prosecute any alcohol or drug abuse patient.[facility] NorthIn the event this information is protected by the Federal Confidentiality of Alcohol and Drug Abuse Patient Records regulations: The Federal rules restrict any use of the information to criminally investigate or prosecute any alcohol or drug abuse patient.[facility] NorthIn the event this information is protected by the Federal Confidentiality of Alcohol and Drug Abuse Patient Records regulations: The Federal rules restrict any use of the information to criminally investigate or prosecute any alcohol or drug abuse patient.[facility] NorthIn the event this information is protected by the Federal Confidentiality of Alcohol and Drug Abuse Patient Records regulations: The Federal rules restrict any use of the information to criminally investigate or prosecute any alcohol or drug abuse patient.[facility] NorthIn the event this information is protected by the Federal Confidentiality of Alcohol and Drug Abuse Patient Records regulations: The Federal rules restrict any use of the information to criminally investigate or prosecute any alcohol or drug abuse patient.[facility] NorthIn the event this information is protected by the Federal Confidentiality of Alcohol and Drug Abuse Patient Records regulations: The Federal rules restrict any use of the information to criminally investigate or prosecute any alcohol or drug abuse patient.[facility] NorthIn the event this information is protected by the Federal Confidentiality of Alcohol and Drug Abuse Patient Records regulations: The Federal rules restrict any use of the information to criminally investigate or prosecute any alcohol or drug abuse patient.[facility] NorthIn the event this information is protected by the Federal Confidentiality of Alcohol and Drug Abuse Patient Records regulations: The Federal rules restrict any use of the information to criminally investigate or prosecute any alcohol or drug abuse patient.[facility] NorthIn the event this information is protected by the Federal Confidentiality of Alcohol and Drug Abuse Patient Records regulations: The Federal rules restrict any use of the information to criminally investigate or prosecute any alcohol or drug abuse patient.[facility] NorthIn the event this information is protected by the Federal Confidentiality of Alcohol and Drug Abuse Patient Records regulations: The Federal rules restrict any use of the information to criminally investigate or prosecute any alcohol or drug abuse patient.[facility] NorthIn the event this information is protected by the Federal Confidentiality of Alcohol and Drug Abuse Patient Records regulations: The Federal rules restrict any use of the information to criminally investigate or prosecute any alcohol or drug abuse patient.[facility] NorthIn the event this information is protected by the Federal Confidentiality of Alcohol and Drug Abuse Patient Records regulations: The Federal rules restrict any use of the information to criminally investigate or prosecute any alcohol or drug abuse patient.[facility] UNRECOGNIZED CONTENT PROVIDED BELOW FOR UNRECOGNIZED SECTION [...] dyspepsia,gerd,dysphagia 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, 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 [place] 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 Procedures COLONOSCOP W/ OR W/O [facility] SPEC EGD W/O OR W/BRUSH/WASH COLONOSCOPY W/EGD [facility] [address] [place], [place] [address] Phone: [place], [place] [phone] Fax: Reason Onset Date Comments Patient [...] AUTHOR AUTHOR'S ORGANIZATIO N 10/21/2019 [facility] DATE CREATED AUTHOR AUTHOR'S ORGANIZATIO N 04/06/2020 [facility] DATE CREATED AUTHOR AUTHOR'S ORGANIZATIO N 02/26/2020 [facility] ([place]) DATE CREATED AUTHOR AUTHOR'S ORGANIZATIO N 06/11/2020 [facility] DATE CREATED AUTHOR AUTHOR'S ORGANIZATIO N 06/21/2020 [facility] DATE CREATED AUTHOR AUTHOR'S ORGANIZATIO [...] pcp would send Rx for phenergan to [facility] [place]. Reports she's had nausea for weeks. Saw GI yesterday, and has scheduled an EGD and colonoscopy. Reports the GI specialist tells her there is something wrong with her digestive system. documented in this encounterTelephone Encounter - iPerce Barber Ma - 04/30/2020 12:15 PM EDT Tried to return call, voicemaill full Pierce Barber MA documented in this encounterTelephone Encounter - Pierce Barber Ma - 05/01/2020 3:46 PM EDTTried to call patient voicemail is full. Also noted celiac panel was not drawn, left message with [facility] to contact patient for redraw Pierce [...] or do not improve. Taty Perea APRN, [employer] documented in this encounter UNRECOGNIZED CONTENT PROVIDED [...]
--- OUTSIDE RECORDS SUMMARY | 2020-06-26 18:58 | XMS RPT_ITS | CCD ---
:1980 External Reference #:[id number] Author Organization [facility] Care Team Providers Name Role Phone [...] Admitting Unavailable MD JENNIFER Attending Unavailable MD JENNIFRE Primary Care Unavailable [employer] Unavailable [...] Cephalexin Itching 10-20-2019 - [facility] ([id number]) Chlorhexidine Rash 10-29-2016 - [facility] (99408) CONTRAST MEDIA, Moderate Mello Pomeren e IODINE RELATED ([facility]) Repository (Qualifier Value) Ibuprofen GI Upset Low 06-18-2016 - [facility] (15370) Ibuprofen Moderate [facility] ([facility]) Repository (Qualifier Value) Iodine Shortness of Breath Low 05-17-2008 - [facility] (18796) Ketorolac Moderate [facility] ([facility]) Repository (Qualifier Value) Ketorolac Rash 05-25-2020 - [facility] (31073) metroNIDAZOLE Moderate [facility] ([facility]) Repository (Qualifier Value) Penicillins Rash Moderate [facility]17082[facility] Penicillins Moderate [facility] ([facility]) Repository (Qualifier Value) predniSONE Other: See Comments Low 06-18-2016 [facility] (42451) Promethazine Moderate Mello P[facility]rene ([facility]) Repository (Qualifier Value) Salicylic Acid Other: See Comments Low 01-27-2011 - [facility] (32992) traMADol Rash 05-25-2020 - [facility] (58830) Medications Medication Name Sig Date Prescriber Location Albuterol albuterol HFA (VENTOLIN [facility] Provider [facility] (15246) HFA) 90 mcg/actuation inhaler Inhale 2 Puffs as instructed every 4 hours as needed. 0 Active Comment: Inhale 2 Puffs as instructed every 4 hours as needed. Bifidobacterium Bifidobacterium 04-26-2020 - Johnny [facility] Infantis Infantis (ALIGN) 4 mg 07-25-2020 [facility] (07708) cap Take 1 capsule by mouth once daily. 30 capsule 2 04/26/2020 07/25/2020 Active Comment: Take 1 capsule by mouth once daily. Clindamycin clindamycin (CLEOCIN) 06-15-2020 - Jonh (Res) [facility] 300 mg capsule 06-26-2020 Chad (78175) Indications: Incisional infection Take 1 capsule by mouth four times daily for 5 days. 20 capsule 0 06/21/2020 06/26/2020 Active Comment: Take 1 capsule by mouth four times daily for 5 days. diazePAM diazePAM (VALIUM) 5 mg 06-05-2020 [facility] tablet Indications: 06-07-2020 Mala [facility] (20179) Pancreatic cyst Take 1 tablet by mouth once daily for 2 days. 2 tablet 0 06/05/2020 06/07/2020 Active Comment: Take 1 tablet by mouth once daily for 2 days. Dicyclomine dicyclomine (BENTYL) 04-26-2020 - Johnny Mccall [facility] 10 mg capsule Take 1 05-24-2020 [facility] (23915) capsule by mouth before meals and at bedtime. Use as directed 90 capsule 1 04/26/2020 05/24/2020 Discontinued Comment: Take 1 capsule by mouth befo re meals and at bedtime. Use as directed diphenhydrAMINE diphenhydrAMINE (BENADRYL) 03-29-2019 [facility] Provide r [facility] 25 mg capsule Take 50 mg (44 195) by mouth every 6 hours as needed. 0 03/29/2019 Active Comment: Take 50 mg by mouth every 6 hours as needed. Docusate docusate sodium 06-21-2020 Jonh (Res) [facility] (COLACE) 100 mg capsule Bertke (441 95) Take 1 capsule by mouth twice daily. 60 capsule 0 06/21/2020 Active Comment: Take 1 capsule by mouth twic e daily. Estradiol estradiol (ESTRACE) 2 mg 03-23-2020 [facility] Provider [facility] (81133) tablet Take 2 mg by mouth once daily. 0 03/23/2020 Active Comment: Take 2 mg by mouth once kehinde y. HYDROmorphone HYDROmorphone 06-12-2020 - Mala Almendarez [facility] nghia (HYDROMORPHONE) 2 mg 06-19-2020 (55660) tablet Indications: Post-op pain Take 1 tablet by mouth every 3 hours as needed for Pain for up to 7 days. 40 tablet 0 06/12/2020 06/19/2020 Active Comment: Take 1 tablet by mouth every 3 hours as needed for Pain for up to 7 days. Hyoscyamine hyoscyamine (LEVSIN) 05-24-2020 Johnny Mccall [facility] 0.125 mg tablet Take 1 [facility] (4419 5) tablet by mouth every 6 hours as needed. 60 tablet 1 05/24/2020 Active Comment: Take 1 tablet by mouth every 6 hours as needed. iv contrast (will iv contrast (will be 06-05-2020 - Mala Almendarez [facility] be provided with provided with 06-06-2020 Mala Almendarez (96607) radiology test) radiology test) MRI ABDOMEN Inject, [...] metroNIDAZOLE metroNIDAZOLE (FLAGYL) 04-26-2020 - Johnny Mccall [facility] 500 mg tablet Take 1 05-03-2020 [facility] (34303) tablet by mouth three times daily for 7 days. 21 tablet 0 04/26/2020 05/03/2020 Active Comment: Take 1 tablet by mouth three times daily for 7 days. Naloxone naloxone 4 mg/actuation 06-21-2020 Jonh (Res) [facility] nasal spray (NARCAN) Use Chad (22 195) 1 spray in one nostril as [...] oxyCODONE IR 06-21-2020 - Maria Luisa Trejo [facility] (ROXICODONE) 5 mg 06-26-2020 (46845) immediate release tablet Indications: Benign liver cyst Take 1 tablet by mouth every 8 hours as needed for up to 5 days. 15 tablet 0 06/21/2020 06/26/2020 Active oxyCODONE IR 05-29-2020 - Sorin (Res) [facility] (ROXICODONE) 5 mg 06-03-2020 Alhalalmeh (47484) immediate release tablet Indications: Intractable nausea and [...] [facility] (PROTONIX) 40 mg 04-30-2020 [facility] (14330) tablet Take 1 tablet by mouth daily before breakfast. Take on empty stomach, 1/2 hr before meal. 30 tablet 3 04/30/2020 Active Comment: Take 1 tablet by mouth daily before breakfast. Take on empty stomach, 1/2 hr before meal. POLYETHYLENE GLYCOL polyethylene glycol 06-21-2020 - [place] (Res ) [place] 3350 3350 (MIRALAX) 17 07-22-2020 [facility] (44 195) gram/dose powder Dissolve 1 packet in 4-8 ounces of liquid and drink by mouth once daily as directed. 476 g 0 06/21/2020 07/22/2020 Active Comment: Dissolve 1 packet in 4-8 oun simi of liquid and drink by mouth once daily as directed. POLYETHYLENE GLYCOL peg 3350-Electrolytes 04-26-2020 - Johnny Mccall [place] 3350 / Potassium (GOLYTELY) 04-26-2020 [facility] (441 95) Chloride / Sodium [phone] [phone] Johnny Mccall Bicarbonate / gram suspension [facility] Sodium Chloride / Indications: sodium [...] 1 mg cap Take 1 [facility] Provider [facility] (28448) mg by mouth daily at bedtime. 0 Active Comment: Take 1 mg by mouth daily at bedtime. pregabalin pregabalin (LYRICA) 06-25-2020 - Mala oliver [facility] 300 mg capsule 07-09-2020 Mala Almendarez (26678) Indications: Post-op pain Take 1 capsule by mouth twice daily for 14 days. 28 capsule 0 06/25/2020 07/09/2020 Active Comment: Take 1 capsule by mouth twic e daily for 14 days. Promethazine promethazine (PHENERGAN) 05-24-2020 Johnny [facility] 25 mg tablet Take 1 [place] (91720) tablet by mouth every 8 hours as needed (for nausea). 10 tablet 0 05/24/2020 Active Comment: Take 1 tablet by mouth every 8 hours as needed (for nausea). QUEtiapine QUEtiapine (SEROQUEL) 02-23-2020 Marcelino Mejia [facility] 100 mg tablet Take 1 (48812) tablet by mouth once daily. 0 02/23/2020 Active Comment: Take 1 tablet by mouth once daily. Sertraline sertraline (ZOLOFT) 100 02-23-2020 Marcelino Ferreira [facility] mg tablet Take 1 tablet (441 95) by mouth once daily. 0 02/23/2020 Active Comment: Take 1 tablet by mouth once daily. Sucralfate sucralfate (CARAFATE) 1 05-24-2020 Johnny Mccall Naya hu [facility] gram tablet Take 1 (68389) tablet by mouth four times daily. 30 tablet 0 05/24/2020 Active Comment: Take 1 tablet by mouth four times daily. Problems Active Problems Category Problem Name Status Date Location Abdominal pain Lower abdominal pain, Active 10-31-2019 - [facility]79261[facility] Anxiety disorders Generalized anxiety Active 03-31-2016 - [facility] disorder (47597) Esophageal disorders Gastroesophageal reflux Active [facility] disease (36652) Headache; including Migraine without aura Active 05-17-2008 - [facility] migraine [facility] (27747[facility] Mood disorders Reactive depression Active 03-31-2016 - [facility] (situational) (06992) Nausea and vomiting Nausea and vomiting Active 05-25-2020 - [facility] (69526) Other disorders of Indigestion Active [facility] stomach and duodenum (70484) Other gastrointestinal Diarrhea Active [facility] disorders (23988) Other gastrointestinal Loose stool Active [facility] disorders (71426) Other gastrointestinal Abdominal bloating Active [facility] disorders (51061) Other gastrointestinal Dysphagia Active [facility] disorders (88569) Other gastrointestinal Personal history of Active [facility] disorders other diseases of the (64247 ) digestive system Other infections; Local infection of wound Active [facility] including parasitic (75302) Other liver diseases Liver cyst Active 05-24-2010 - [facility] (61803) Other nervous system Postoperative pain Active 06-19-2020 - [facility] disorders (21616) Other nervous system Chronic pain syndrome Active 06-06-2020 - [facility] disorders (28521) Other non-traumatic joint Shoulder pain Active [facility] disorders (99627) Other upper respiratory Allergic rhinitis Active 05-17-2008 - [facility] disease (61791) Pancreatic disorders (not Idiopathic acute Active [facility] diabetes) pancreatitis (75205) Paralysis Weakness of right leg Active 02-23-2017 - [facility] (49824) Substance-related Smoker Active 05-17-2008 - Mello Pomer willem disorders [facility] (83750) Unclassified Patient encounter status Active 05-17-2008 - [facility] (59038) Past or Other Problems Category Problem Name Status Date Location Allergic reactions Allergy status to Completed 10-31-2019 - Mello Pomerene narcotic agent status [facility] (80282) Blindness and vision Blurring of visual Completed 02-23-2017 - [facility] defects image (58393) Calculus of urinary Kidney stone Completed 05-17-2008 - [facility] tract (55254) Diabetes mellitus Impaired fasting Completed 05-17-2008 - [facility] without complication glycaemia (71812) Miscellaneous mental Adjustment insomnia Completed 03-31-2016 - [facility] health disorders (04856) Other connective tissue Muscle weakness of Completed 02-23-2017 - [facility] disease upper limb (53481) Other connective tissue Trochanteric bursitis Completed 06-18-20 - [facility] disease (44628) Other diseases of Hydroureter Completed 02-05-2017 - [facility] kidney and ureters (15542) Other diseases of Hydronephrosis Completed 02-05-2017 - [facility] kidney and ureters (27038) Other lower respiratory Multiple nodules of Completed 01-22-2020 - [facility] disease lung (62636) Other nervous system Numbness of lower limb Completed 02-23-2017 - [facility] disorders (01155) Other nervous system Numbness of upper limb Completed 02-23-2017 - [facility] disorders (64506) Other nervous system Numbness of face Completed 02-23-2017 - [facility] disorders (27358) Other non-traumatic Hip pain Completed 06-18-2016 - [facility] joint disorders (90376) Other screening for MRI of lumbar spine Completed 02-23-2017 - [facility] suspected conditions abnormal (15884) (not mental disorders or infectious disease) Ovarian cyst Cyst of ovary Completed 07-15-2012 - [facility] (81112) Residual codes; Acquired absence of Completed 10-31-2019 - [facility] unclassified both cervix and uterus [facility] (01610) Residual codes; Acquired absence of Completed 10-31-2019 - [facility] unclassified other specified parts [facility] of digestive tract (90644) Residual codes; FH: Diabetes mellitus Completed 05-17-2008 - [facility] unclassified (80355) Spondylosis; Low back pain Completed 06-18-2016 - [facility] intervertebral disc (39026) disorders; other back problems Results Result Name Value Range Unit Interpretation Flag Date Location obsolete on 2020-06 OBSOLETE Refill ([facility]) Normal 06-25-2020 [facility] SALLY MCGREGOR ([id number]) 1980 F Medical Date Time Provider Department Center 06/25/20 MALA ALMENDAREZ [facility] (20476) During your visit today, we recorded the [...] 06/25/20 progress on 2020-06 PROGRESS HNO ID: [id number] Normal 06-21-2020 Milka Dumont Author: Maria Luisa K [facility] Service: Pain Management (75176) Author Type: Physician Type: Progress Notes Filed: [...] Approx. 3 cigarettes daily-1 pack every w ak chin Substance Use Topics - Alcohol use: Yes [...] removed - TOTAL ABDOM HYSTERECTOMY 08/31/06 Hysterectomy, IMCHELINE ROS: All of the following reviewed and [...] and migraine headache. She was referred to [place] pain management but was unable to go [...] pain. Small quantity oxycodone prescription sent to [facility] Maria Luisa Trejo MD plan of care on PLAN OF CARE HNO ID: [id number] Normal 06-21-20 [facility] Author: Rhonda Holman (Pharmacist) Center (99469) Service: Pharmacy Author Type: Pharmacist Type: Plan [...] PHARMACIST June 21, 2020 11:55 AM Pager: [phone] 06/21/2020 11:55 AM Medication List START taking [...] Your Medications These medications were sent to [facility] [address] [place], [place] [id number] Hours: Thursday-Thursday, 8am-6:30pm ? clindamycin 300 mg capsule ? docusate sodium 100 mg capsule ? naloxone 4 mg/actuation nasal spray ? oxyCODONE IR 5 mg immediate release tablet ? polyethylene glycol 3350 17 gram/dose powder nursing prog on NURSING HNO ID: [id number] Normal 06-21-2020 [place] [facility] Author: Silvia Naranjo) VIN Gomez General Service: ? Medical Author Type: Registered Nurse Center Type: Nursing Progress Note ([id number]) Filed: 06/20/2020 11:32 PM Note Text: Nursing Progress Note Patient Name: Sally Mcgregor Patient Location: [id number] Pt has been eating better and was told by the doctor that wh en her intake improved the fluids could be discontinued. Pt does not want fluids to continue so RN stopped fluids on pt's request. Doctor note i ndicated what the pt said. This note was completed by: Silvia Gomez RN progress on 2020-06 PROGRESS HNO ID: [id number] Normal 06-20-2020 [place] Author: Jonh Urrutia DO General Service: General Surgery Medical Author Type: Resident Center Type: Progress Notes ([id number]) Filed: 06/20/2020 8:38 AM Note Text: Attestation signed by Mala Almendarez at 06/20/2020 2:18 PM I saw and evaluated the patient. Discussed with the reside nt and agree with resident's findings and plan as documented in the resident's note. [facility] General Surgery Progress Note SERVICE DATE: 06/20/2020 [facility] Service Pager: For questions or concerns Mon-Fri 6a-5p please page [phone]. After 5pm and on Weekends and Holidays, please page [phone]. SUBJECTIVE: Doing better this morning. Says pain [...] - enteric contrast (radiology procedure) ORAL DIRECTED [facility] N - oxyCODONE IR 5-10 mg tab(s) [...] questions or concerns Mon-Fri 6a-5p please page [phone]. After 5pm and on Weekends and Holidays, please page [phone] if in ICU or [phone] if on RNF. plan of care on PLAN OF CARE HNO ID: [id number] Normal 06-20-20 20 [facility] Medical Author: Nancy Abebe [facility] ([id number]) Service: General Surgery Author Type: Resident Type: [...] history physical on 2020-06-20 HISTORY HNO ID: [id number] Normal 06-20-2020 [place] PHYSICAL Author: Nancy Abebe [facility] Service: General Surgery Medical Author Type: Resident Center Type: HAND ([id number]) Filed: 06/19/2020 11:38 PM Note Text: Attestation signed by Mala Almendarez at 06/20/2020 2:18 PM Attending Note I personally saw and examined the patient. I reviewed the resident's note. I agree with the resident's assessment and plan with the [facility] revisions and/or additions: CT scan reviewed. Will [...] get worse. She was se nt to [place] ED, where she was given IV Dilauded and transferred here to [facility]. Pt reports that she is urinating, passing flatus and BMs. No N/ V. No fevers or chills. Last PO was at 1300h. Pt has a h/o multiple abd surgeries. Reformed smoker x5 anai hs. FUNCTIONAL STATUS: Independent PAST MEDICAL HISTORY Diagnosis Date - Allergic rhinitis, cause unspecified 05/17/2008 Spring and summer - Benign liver cyst 05/24/2010 CT scan at [facility] 11/2009 and 04/2010 showe 4 mm increase in size . No pain. No elevated LFTs on 03/11/2010. - Calculus of kidney 05/17/[address] Nicolas: Hospitalized age 20, and again later -- no procedures so far ([facility], [facility], 1995 [facility]) - Cancer (HCC) - Diverticulosis [...] Approx. 3 cigarettes daily-1 pack every w ak chin Substance Use Topics - Alcohol use: Yes [...] oz (86.0kg) SpO2 100% LMP 08/10/2006 B [place] 35.84 kg/(m2). O2 Therapy: Room Air DATA: [...] DATE OF EXAM: Jun 20 2020 11:59AM [facility] 0530 - CT ABD/PEL W IVCON / ([id number]) PROCEDURE REASON: Abd pain, unspecified Physician Interpretation [...] ed portions of the heart are unremarkable. Slat Basket Maker Machine (topogram) images: No additional findings. IMPRESSION: 1. Postsurgical changes in the posterior right hepatic dome with residual 8.3 cm cystic cavity with trace likely postsurgical gas, but no peripheral enhancement to suggest acute inflammation. 2. Other hepatic cyst are unchanged. 3. No acute intra-abdominal or pelvic findings. Cigar Packer And Sorter: HERMINIO Transcribe Date/Time: Jun 20 2020 12:16P Dictated by : NILAM OVIEDO MD This examination was interpreted and the report reviewed and electronically signed by: NILAM OVIEDO MD on Jun 20 2020 12:28PM EST consult on CONSULT HNO ID: [id number] Normal 06-20-2020 [place] [facility] Author: [facility] Anya [facility] Service: Pain Management ([id number]) Author Type: Physician Type: Consults Filed: 06/20/2020 [...] - enteric contrast (radiology procedure) ORAL DIRECTED [facility] N Kaushal (Res) DO Grupo - oxyCODONE [...] (ZOLOFT) 100 mg ORAL DAILY Robel ribeiro (iKran) Mis - pantoprazole DR 40 mg tab(s) [...] 1 gram tablet, Take 1 tablet by [facility] four times daily., Disp: 30 tablet, Rfl: [...] Approx. 3 cigarettes daily-1 pack every w ak chin Substance Use Topics - Alcohol use: Yes [...] and migraine headache. She was referred to [place] pain management but was unable to go [...] health on 03-07-07 ALLIED HEALTH HNO ID: [id number] Normal 020 [place] [facility] Author: Holly PickardRt) Audi [facility] Service: Radiology ( 88544) Author Type: Warehouse Shipper Type: Allied Health Filed: 06/20/2020 12:04 PM [...] unstable renal function, e.g. those with [place] kidney injury, the eGFR may not accurately reflect actual GFR. eGFR- Date Value Ref Range Status 06/19/2020 >60 Final 02/15/2020 >60 Final P.O.C.T. RESULTS: N/A June 20, 2020 TREATMENT: N/A and No Hydration needed. PERIPHERAL IV DATA: Inpatient - refer to [facility] documentation RADIOLOGY DEPARTMENT: CT; Exam(s) Completed: Abdomen/Pelvis SIGNATURE: RT Jada PATIENT NAME: Sally caldwell DATE: June 20, 2020 TIME: 11:59 AM comp metab 1999 pnl serpl on 2020-06-19 Albumin [Mass/Vol] 4.3 3.9-4.9 g/dL Normal 06-19-2020 [facility] (02818) Comment: Order Comment: Specimen Type : BLOOD SPECIMEN Performed By: #### 73044-9 # ###[facility] LABORATORYCLIA [id number] [place] [address] ALP [Catalytic activity/Vol] 110 34-123 U/L Normal 1 0-06-2020 [facility] (00 000) Comment: Order Comment: Specimen Type : BLOOD SPECIMEN Performed By: #### 08309-5 # ###[facility]ORATORYCLIA [id number] [place] [address] ALT With P-5'-P [Catalytic 16 7-38 U/L Normal [facility] Medical activity/Vol] [facility] (82936) Comment: Order Comment: Specimen Type : BLOOD SPECIMEN Performed By: #### 75296-0 # ###[facility]ATORYCLIA [id number] [place] [address] Anion gap [Moles/Vol] 13 9-18 mmol/L Normal 06-19-20 20 [facility] (91690) Comment: Order Comment: Specimen Type : BLOOD SPECIMEN Performed By: #### 36098-4 # ###[facility]ATORYCLIA [id number] [place] [address] AST With P-5'-P [Catalytic 19 13-35 U/L Normal [facility] activity/Vol] [facility] (26406) Comment: Order Comment: Specimen Type : BLOOD SPECIMEN Performed By: #### 72540-8 # ###[facility]ATORYCLIA [id number] [place] [address] Bilirubin [Mass/Vol] 0.2 0.2-1.3 mg/dL Normal 0 [facility] (92196) Comment: Order Comment: Specimen Type : BLOOD SPECIMEN Performed By: #### 81513-0 # ###[facility]ATORYCLIA [id number] [place] [address] Calcium [Mass/Vol] 9.1 8.5-10.2 mg/dL Normal 06-19-2020 [facility] (05140) Comment: Order Comment: Specimen Type : BLOOD SPECIMEN Performed By: #### 61219-0 # ###[facility]ATORYCLIA [id number] [place] [address] Chloride [Moles/Vol] 102 97-105 mmol/L Normal 0 [facility] (51871) Comment: Order Comment: Specimen Type : BLOOD SPECIMEN Performed By: #### 70435-8 # ###[facility] LABORATORYCLIA [id number] [place] [address] CO2 [Moles/Vol] 22 22-30 mmol/L Normal 06-19-2020 [facility] (90124) Comment: Order Comment: Specimen Type : BLOOD SPECIMEN Performed By: #### 85729-5 # ###[facility] LABORATORYCLIA [id number] [place] [address] Creatinine [Mass/Vol] 0.88 0.58-0.96 mg/dL Normal 06-19-20 20 [facility] (00 000) Comment: Order Comment: Specimen Type : BLOOD SPECIMEN Performed By: #### 81478-2 # ###[facility] LABORATORYCLIA [id number] [place] [address] GFR/1.73 sq M.predicted >60 mL/min/{1.73_m2} Normal 06-19-2020 [facility] MDRD (S/P/Bld) [[facility] rate/Area] (85177) Comment: Order Comment: Specimen Type : BLOOD SPECIMEN Result Comment: >60 eGFR (Estimated GFR) Units o f measure: mL/min/1.73 meters squared eGFR is derived from the ree xpressed MDRD Study equation using the following parameters: serum creatinine, age, gender and race. The creatinine assay has been calibrated to be traceable to [place]. An eGFR <60 mL/min/1.73m2 for >3 mo nths is consistent with chronic kidney disease. Refer to KDOQI guidelines for clinical interpretation. In patients with unstable renal function, e.g. those with acute k idney injury, the eGFR may n ot accurately reflect actual GFR. Performed By: #### 45339-4 # ###[facility] LABORATORYCLIA [id number] [facility] [address] Glucose [Mass/Vol] 100 74-99 mg/dL High 06-19-2020 [facility] (58955) Comment: Order Comment: Specimen Type : BLOOD SPECIMEN Result Comment: The English Diabetes Association (ADA) provides guidance for cutoff [...] for diagnosis of diabetes. Reference: Standards of [facility] Care in Diabetes 2016, English Diabetes Association. Diabetes Care. 2016.39(Suppl 1). Performed By: #### 29738-0 # ###[facility] LABORATORYCLIA [id number] [place] [place] [address] Potassium [Moles/Vol] 3.8 3.7-5.1 mmol/L Normal 06-19-20 20 [facility] (00 000) Comment: Order Comment: Specimen Type : BLOOD SPECIMEN Performed By: #### 74183-9 # ###[facility] LABORATORYCLIA [id number] [place] [place] [address] Protein [Mass/Vol] 7.7 6.3-8.0 g/dL Normal 06-19-2020 [facility] (52829) Comment: Order Comment: Specimen Type : BLOOD SPECIMEN Performed By: #### 72265-6 # ###[place] [facility] LABORATORYCLIA [id number] [place] [address] Sodium [Moles/Vol] 137 136-144 mmol/L Normal 06-19-2020 [facility] (21139) Comment: Order Comment: Specimen Type : BLOOD SPECIMEN Performed By: #### 32429-5 # ###[facility] LABORATORYCLIA [id number] [place] [address] Urea nitrogen [Mass/Vol] 14 7-21 mg/dL Normal 06-19 [facility] (25437) Comment: Order Comment: Specimen Type : BLOOD SPECIMEN Performed By: #### 04299-8 # ###[facility]ORATORYCLIA [id number] [place] [address] cbc w auto diff bld on 2020-06-19 Basophils (Bld) [#/Vol] 0.08 <0.11 k/uL Normal 2019 [facility] (00 000) Comment: Order Comment: Specimen Type : BLOOD SPECIMEN Performed By: #### 22362-0 # ###[facility]ORATORYCLIA [id number] [place] [address] Basophils/100 WBC (Bld) 0.7 % Normal 2019 [facility] (05505) Comment: Order Comment: Specimen Type : BLOOD SPECIMEN Performed By: #### 13958-2 # ###[facility]ORATORYCLIA [id number] [place] [address] Differential cell count method Auto Normal 06-19-2020 [facility] ([facility] (00 000) Comment: Order Comment: Specimen Type : BLOOD SPECIMEN Performed By: #### 44456-7 # ###[facility]ORATORYCLIA [id number] [place] [address] Eosinophils (Bld) [#/Vol] 0.71 <0.46 k/uL High [facility] (00 000) Comment: Order Comment: Specimen Type : BLOOD SPECIMEN Performed By: #### 62705-3 # ###[facility]ORATORYCLIA [id number] [place] [address] Eosinophils/100 WBC (Bld) 6.0 % Normal [facility] (50392) Comment: Order Comment: Specimen Type : BLOOD SPECIMEN Performed By: #### 22351-2 # ###[facility]ORATORYCLIA [id number] [place] [address] Erythrocyte distribution 13.3 11.5-15.0 % Normal 06-19 [facility] (RBC) [Ratio] Center (44469) Comment: Order Comment: Specimen Type : BLOOD SPECIMEN Performed By: #### 39122-7 # ###[facility]ORATORYCLIA [id number] [place] [address] Hematocrit (Bld) [Volume 37.8 36.0-46.0 % Normal 06-19 [facility]] Center (00 000) Comment: Order Comment: Specimen Type : BLOOD SPECIMEN Performed By: #### 88694-6 # ###[facility] LABORATORYCLIA [id number] [place] [address] Hemoglobin (Bld) 12.1 11.5-15.5 g/dL Normal 06-19-2020 [facility] [Mass/Vol] [place] (0 0000) Comment: Order Comment: Specimen Type : BLOOD SPECIMEN Performed By: #### 31322-1 # ###[facility]ORATORYCLIA [id number] [place] [address] IMMATURE GRAN % 1.5 % Normal 06-19-2020 [facility] (38190) Comment: Order Comment: Specimen Type : BLOOD SPECIMEN Performed By: #### 05584-8 # ###[facility] LABORATORYCLIA [id number] [place] [address] IMMATURE GRAN ABS 0.18 <0.10 k/uL High 06-19-2020 [facility] (00373) Comment: Order Comment: Specimen Type : BLOOD SPECIMEN Result Comment: Differential confirmed by visual scan of peripheral blood smear slide Performed By: #### 49813-3 # ###[facility] LABORATORYCLIA [id number] [place] [address] Lymphocytes (Bld) [#/Vol] 4.79 1.00-4.00 k/uL High [facility] (00 000) Comment: Order Comment: Specimen Type : BLOOD SPECIMEN Performed By: #### 60046-7 # ###[facility]ORATORYCLIA [id number] [place] [address] Lymphocytes/100 WBC (Bld) 40.6 % Normal [facility] (40352) Comment: Order Comment: Specimen Type : BLOOD SPECIMEN Performed By: #### 17175-8 # ###[facility]ORATORYCLIA [id number] [place] [place] [address] MCH (RBC) [Entitic mass] 28.6 26.0-34.0 pg Normal 06-19 [facility] () Comment: Order Comment: Specimen Type : BLOOD SPECIMEN Performed By: #### 19021-2 # ###[facility]ORATORYCLIA [id number] [place] [address] MCHC (RBC) [Mass/Vol] 32.0 30.5-36.0 g/dL Normal 06-19-20 [facility] () Comment: Order Comment: Specimen Type : BLOOD SPECIMEN Performed By: #### 97014-4 # ###[facility]ORATORYCLIA [id number] [place] [address] MCV (RBC) [Entitic vol] 89.4 80.0-100.0 fL Normal 06-19 [facility] () Comment: Order Comment: Specimen Type : BLOOD SPECIMEN Performed By: #### 24734-6 # ###[facility]ORATORYCLIA [id number] [place] [place] [address] Monocytes (Bld) [#/Vol] 0.53 <0.87 k/uL Normal 2019 [facility] () Comment: Order Comment: Specimen Type : BLOOD SPECIMEN Performed By: #### 44953-2 # ###[facility]ORATORYCLIA [id number] [place] [address] Monocytes/100 WBC (Bld) 4.5 % Normal 2019 [facility] (17638) Comment: Order Comment: Specimen Type : BLOOD SPECIMEN Performed By: #### 85364-3 # ###[facility]ORATORYCLIA [id number] [place] [address] Neutrophils (Bld) [#/Vol] 5.51 1.45-7.50 k/uL Normal [facility] () Comment: Order Comment: Specimen Type : BLOOD SPECIMEN Performed By: #### 69943-6 # ###[facility]ORATORYCLIA [id number] [place] [address] Neutrophils/100 WBC (Bld) 46.7 % Normal [facility] (91784) Comment: Order Comment: Specimen Type : BLOOD SPECIMEN Performed By: #### 73905-7 # ###[facility]ORATORYCLIA [id number] [place] [address] Nucleated RBC (Bld) <0.01 <0.01 10*3/uL Normal 06-19-2020 [facility] [#/Vol] [place] (00 000) Comment: Order Comment: Specimen Type : BLOOD SPECIMEN Performed By: #### 97422-8 # ###[facility] LABORATORYCLIA [id number] [facility] [place] [place] [address] Nucleated RBC/100 WBC 0.0 0.0 /100 WBC Normal 06-19-20 [facility] (Bld) [Ratio] [place] (75821) Comment: Order Comment: Specimen Type : BLOOD SPECIMEN Performed By: #### 24675-7 # ###[facility]ORATORYCLIA [id number] [place] [address] Platelet mean volume (Bld) 10.4 9.0-12.7 fL Normal [facility] [Entitic vol] [place] (71598) Comment: Order Comment: Specimen Type : BLOOD SPECIMEN Performed By: #### 90863-8 # ###[facility]ORATORYCLIA [id number] [place] [address] Platelets (Bld) [#/Vol] 324 150-400 k/uL Normal 2019 [facility] (00 000) Comment: Order Comment: Specimen Type : BLOOD SPECIMEN Performed By: #### 53137-8 # ###[facility]ORATORYCLIA [id number] [place] [address] RBC (Bld) [#/Vol] 4.23 3.90-5.20 m/uL Normal 06-19-2020 [facility] (75218) Comment: Order Comment: Specimen Type : BLOOD SPECIMEN Performed By: #### 50366-3 # ###[facility]ORATORYCLIA [id number] [place] [address] RED CELL MORPH Normal Normal 06-19-2020 [facility] (51489) Comment: Order Comment: Specimen Type : BLOOD SPECIMEN Performed By: #### 23725-6 # ###[facility] LABORATORYCLIA [id number] [facility] [address] WBC (Bld) [#/Vol] 11.80 3.70-11.00 k/uL High 06-19-2020 [facility] (68644) Comment: Order Comment: Specimen Type : BLOOD SPECIMEN Performed By: #### 68760-6 # ###[facility] LABORATORYCLIA [id number] [facility] [address] cnpn on 2020-06-15 CNPN Telephone (AGGENS6) Normal 06-15-2020 [facility] SALLY MCGREGOR (162154) 1980 F Medical Date Time Provider Department Center 06/15/20 TATY PEREA (PLAYGROUND OFFICIAL, LEAD JANITOR) AGGENS6 (88804) During your visit today, we recorded the following informati on about you: Taty Perea APRN.LEAD JANITOR 06/15/2020 11:28 AM Signed Patient called the [...] have transportation. She refuses to go to [facility] ER to be seen because they treat her poorly. I will send an RX to her pharmacy for an antibiotic. She is to notify the office if her symptoms worsen or do not improve. Taty Perea APRN, LEAD JANITOR Allergies As of Date: 06/15/2020 Noted Allergy [...] 06/15/20 progress on 2020-05 PROGRESS HNO ID: [id number] Normal 06-13-2020 [place] Author: Kimmie Jennings General Service: General Surgery Medical Author Type: Resident Center Type: Progress Notes (88142) Filed: 06/13/2020 6:55 AM Note Text: Attestation signed by Mala Almendarez at 06/18/2020 1:28 PM I saw and evaluated the patient. Discussed with the reside nt and agree with resident's findings and plan as documented in the resident's note. [facility] Progress Note SERVICE DATE: 06/13/2020 [facility] Service Pager: For questions or concerns Mon-Fri 6a-5p please page [phone]. After 5pm and on Weekends and Holidays, please page [phone]. SUBJECTIVE: Patient stayed overnight due to uncontrolled [...] 0659 06/13/20 07 - 06/14/20 0659 Shift 3468-3983 3760-7454 8597-5822 24 Hour Total 0230-7614 1772-3008 7074-3743 24 Hour Total INTAKE PO 240 200 [...] questions or concerns Mon-Thu 6a-5p please page [phone]. After 5pm and on Weekends and Holidays, please page [phone] if in ICU or [phone] if on RNF. PROGRESS HNO ID: [id number] Normal 06-13-2020 [place] Author: Mer (Rn) VIN Bejarano General Service: [...] plan of care on PLAN HNO ID: [id number] Normal 06-13-2020 [place] OF Author: Aureliano Dietz DO General CARE [...] Phosphate [Mass/Vol] 3.9 2.7-4.8 mg/dL Normal 0 [facility] (32229) Comment: Performed By: #### URIN2 ### # [facility] [address] [place] [address] mdrd gfr on 2020-05 GFR/1.73 sq M >60 >60mL/min/1.73m2 mL/min/{1.73_m2} Normal [facility] non-blacks MDRD (000 00) (S/P/Bld) [Vol rate/Area] Comment: Result Comment: If the patie nt is , multiply the result by 1.210. Performed By: #### GFR #### [address] [address] magnesium blood on 2020-06-13 Magnesium [Mass/Vol] 2.1 1.7-2.3 mg/dL Normal 0 [facility] (90145) Comment: Performed By: #### URIN2 ### # [address] [address] hemogram on 2020-05 Erythrocyte distribution 13.4 11.7-14.4 % Normal 06-13 [facility] (RBC) [Ratio] System (00307) Comment: Performed By: #### URIN2 ### # [facility] [address] [place], [place] [address] Hematocrit (Bld) [Volume 37.9 34.1-44.9 % Normal 06-13 [facility]] System (00 000) Comment: Performed By: #### URIN2 ### # [address] [address] Hemoglobin (Bld) 12.1 11.2-15.7 g/dL Normal 06-13-2020 [facility] [Mass/Vol] System (0 0000) Comment: Performed By: #### URIN2 ### # [facility] [address] [place], [place] [address] MCH (RBC) [Entitic mass] 28.9 25.6-32.2 pg Normal 06-13 [facility] (00 000) Comment: Performed By: #### URIN2 ### # [facility] [address] [place], [place] [address] MCHC (RBC) [Mass/Vol] 31.9 31.6-34.8 % Normal 06-13-20 20 [facility] (72560) Comment: Performed By: #### URIN2 ### # [facility] [address] [place], [place] [address] MCV (RBC) [Entitic vol] 90.7 79.4-94.8 fl Normal 2019 [facility] (00 000) Comment: Performed By: #### URIN2 ### # [facility] [address] [place], [place] [address] Platelet mean volume (Bld) 10.9 9.4-12.3 fl Normal [facility] [Entitic vol] System (87174) Comment: Performed By: #### URIN2 ### # [facility] [address] [place], [place] [address] Platelets (Bld) [#/Vol] 236 182-369 thou/cmm Normal 2019 [facility] (00 000) Comment: Performed By: #### URIN2 ### # [facility] [address] [place], [place] [address] RBC (Bld) [#/Vol] 4.18 3.93-5.22 mil/cmm Normal 06-13-2020 [facility] (00 000) Comment: Performed By: #### URIN2 ### # [facility] [address] [place], [place] [address] RDW SD 44.2 36.4-46.3 fl Normal 06-13-2020 [facility] (97281) Comment: Performed By: #### URIN2 ### # [facility] [address] [place], [place] [address] WBC (Bld) [#/Vol] 7.45 3.98-10.04 thou/cmm Normal 06-13-2020 [facility] (00 000) Comment: Performed By: #### URIN2 ### # [facility] [address] [place] [address] comprehensive metabolic panel on 2020-06-13 Albumin [Mass/Vol] 4.1 3.9-4.9 g/dL Normal 06-13-2020 [facility] (43807) Comment: Performed By: #### URIN2 ### # [facility] [address] [place] [address] ALP [Catalytic activity/Vol] 98 34-123 U/L Normal 0 06-13-2020 [facility] (00 000) Comment: Performed By: #### URIN2 ### # [facility] [address] [place] [address] ALT [Catalytic activity/Vol] 73 7-38 U/L High 0 06-13-2020 [facility] (37062) Comment: Performed By: #### URIN2 ### # [facility] [address] [place] [address] Anion gap [Moles/Vol] 10 9-18 mmol/L Normal 06-13-20 20 [facility] (91341) Comment: Performed By: #### URIN2 ### # [facility] [address] [place] [address] AST [Catalytic activity/Vol] 69 13-35 U/L High 0 06-13-2020 [facility] (35200) Comment: Performed By: #### URIN2 ### # [facility] [address] [place] [id number] Bilirubin [Mass/Vol] 0.6 0.2-1.3 mg/dL Normal 0 [facility] (74616) Comment: Performed By: #### URIN2 ### # [facility] [address] [place] [id number] Calcium [Mass/Vol] 9.1 8.5-10.2 mg/dL Normal 06-13-2020 [facility] (52869) Comment: Performed By: #### URIN2 ### # [facility] [address] [place], [place] [address] Chloride [Moles/Vol] 101 97-105 mmol/L Normal 0 [facility] (96699) Comment: Performed By: #### URIN2 ### # [facility] [address] [place], [place] [address] CO2 Blood 27 22-30 mmol/L Normal 06-13-2020 [facility] (83953) Comment: Performed By: #### URIN2 ### # [facility] [address] [place], [place] [address] Creatinine [Mass/Vol] 0.87 0.58-0.96 mg/dL Normal 06-13-20 [facility] (00 000) Comment: Performed By: #### URIN2 ### # [facility] [address] [place], [place] [address] Glucose [Mass/Vol] 94 74-99 mg/dL Normal 06-13-2020 [facility] (81984) Comment: Result Comment: The English Diabetes Association (ADA) provides guidance for cutoff [...] Standards of Medical Care in Diabetes 2016; English Diabetes Association. Diabetes Care. 2016;39(Suppl 1). Performed By: #### URIN2 ### # [facility] [address] [place], [place] [address] Potassium [Moles/Vol] 3.8 3.7-5.1 mmol/L Normal 06-13-20 [facility] (00 000) Comment: Performed By: #### URIN2 ### # [facility] [address] [place], [place] [address] Protein [Mass/Vol] 7.3 6.3-8.0 g/dL Normal 06-13-2020 [facility] (45119) Comment: Performed By: #### URIN2 ### # [facility] [address] [place], [place] [address] Sodium [Moles/Vol] 138 136-144 mmol/L Normal 06-13-2020 [facility] (80368) Comment: Performed By: #### URIN2 ### # [facility] [address] [place], [place] [address] Urea nitrogen [Mass/Vol] 7 7-21 mg/dL Normal 06-13 [facility] (53680) Comment: Performed By: #### URIN2 ### # [facility] [address] [place], [place] [address] case managem on CASE MANAGEM HNO ID: [id number] Normal 06-13-20 [facility] Author: Britni PickardRn) VIN Grimaldo [facility] Service: Care Management (20130) Author Type: Registered Nurse Type: Care Mgt [...] Name/Phone: Floor RN TRANSPORTATION ARRANGEMENTS: Transportation Arrangements: [employer] (through [employer]) [place] [employer]: [phone] Trip #: [id number] Needs Prior to Discharge: Ready for Discharge Chart reviewed. Discharge held yesterday due to uncontrolled pain. Spoke with patient. Plan is for discharge today. Awaiting di awarfausto orders. Discharge disposition= Home with follow up care. SIGNATURE: Britni Grimaldo RN PATIENT NAME: Sally james DATE: June 13, 2020 TIME: 11:00 AM PAGER/CONTACT #: [phone] progress on 2020-05 PROGRESS HNO ID: [id number] Normal 06-12-2020 [place] Author: Nancy Abebe [facility] Service: General Surgery Medical Author Type: Resident Center Type: Progress Notes (12506) Filed: 06/12/2020 7:57 AM Note Text: Attestation signed by Mala Almendarez at 06/12/2020 9:28 PM Attending Note I personally saw and examined the patient. I reviewed the resident's note. I agree with the resident's assessment and plan with the maureen strong revisions and/or additions: Still with severe pain. Will hold DC today and poss dc [facility] Signature: Mala Almendarez MD Date: 06/12/2020 Time: 9:28 PM Elect[facility] General Surgery Progress Note SERVICE DATE: 06/12/2020 [facility] Service Pager: For questions or concerns Mon-Fri 6a-5p please page [phone]. After 5pm and on Weekends and Holidays, please page [phone]. SUBJECTIVE: C/o significant pain that prevents her [...] 06/11/20699 - 06/12/2065806/12/20699 - 06/13/20 0659 Shift 7853-3033 7969-8121 8318-1740 24 Hour Total 0425-0894 7331-7879 2323-9673 24 Hour Total INTAKE PO 100 100 PO 100 100 IV 1900 1900 OR Crystalloid intake (mL) 1000 1000 Volume (mL) (lactated ringers infusion) 900 900 Shift Total 2631 171 9801 OUTPUT Urine 939 567 6571 Void (ml) 600 600 OR Urine Output 500 500 Urine Not Saved. 1 x 3 x 4 x Blood 50 50 Estimated Blood loss 50 50 Shift Total 699 756 9079 Weight (kg) 89.6 89.6 89.6 89.6 89.6 [...] care on PLAN OF CARE HNO ID: [id number] Normal 06-12-20 [facility] Author: Page Burgess (Youth Care Specialist) [place] ([id number]) Service: Pharmacy Author Type: Pharmacist Type: Plan [...] from Discharge Medication Li st. Page Burgess, Youth Care Specialist June 12, 2020 10:36 AM Medication List [...] Your Medications These medications were sent to [facility] [address] [place] [address] Hours: Thursday-Thursday, 8am-6:30pm ? oxyCODONE IR 5 mg immediate release tablet phosphorous blood o n 2020-06-12 Phosphate [Mass/Vol] 3.4 2.7-4.8 mg/dL Normal 0 [facility] ([address]) Comment: Performed By: #### CBCD1 ### # [place] [address] magnesium blood on 2020-06-12 Magnesium [Mass/Vol] 1.5 1.7-2.3 mg/dL Low 0 [facility] (10451) Comment: Performed By: #### CBCD1 ### # [place] [address] hemogram on 2020-05 Erythrocyte distribution 13.2 11.7-14.4 % Normal 06-12 [email or web address] [facility] width (RBC) [Ratio] System (85694) Comment: Performed By: #### CBCD1 ### # [place] [address] Hematocrit (Bld) [Volume 32.9 34.1-44.9 % Low 06-12 [facility] fraction] System (00 000) Comment: Performed By: #### CBCD1 ### # [place] [address] Hemoglobin (Bld) [Mass/Vol] 10.5 11.2-15.7 g/dL Low [facility] (00 000) Comment: Performed By: #### CBCD1 ### # [place] [address] MCH (RBC) [Entitic mass] 29.2 25.6-32.2 pg Normal 06-12 [facility] (00 000) Comment: Performed By: #### CBCD1 ### # [address], [place] [address] MCHC (RBC) [Mass/Vol] 31.9 31.6-34.8 % Normal 06-12-20 20 [facility] ([address]46) Comment: Performed By: #### CBCD1 ### # [facility] [address] [place], [place] [address] MCV (RBC) [Entitic vol] 91.4 79.4-94.8 fl Normal 2019 [facility] (00 000) Comment: Performed By: #### CBCD1 ### # [facility] [address] [place] [id number] Platelet mean volume (Bld) 11.5 9.4-12.3 fl Normal [facility] [Entitic vol] System (43946) Comment: Performed By: #### CBCD1 ### # [facility] [address] [place], [place] [address] Platelets (Bld) [#/Vol] 182 182-369 thou/cmm Normal 2019 [facility] (00 000) Comment: Performed By: #### CBCD1 ### # [facility] [address] [place], [place] [address] RBC (Bld) [#/Vol] 3.60 3.93-5.22 mil/cmm Low 06-12-2020 [facility] (33258) Comment: Performed By: #### CBCD1 ### # [facility] [address] [place], [place] [address] RDW SD 44.5 36.4-46.3 fl Normal 06-12-2020 [facility] (34012) Comment: Performed By: #### CBCD1 ### # [facility] [address] [place], [place] [address] WBC (Bld) [#/Vol] 7.04 3.98-10.04 thou/cmm Normal 06-12-2020 [facility] (00 000) Comment: Performed By: #### CBCD1 ### # [facility] [address] [place], [place] [address] case managem on 202 CASE MANAGEM HNO ID: [id number] Normal 06-12-20 [facility] Author: Britni (Rn) [facility] Service: Care Management (31858) Author Type: Registered Nurse Type: Care Mgt [...] up. SIGNATURE: Britni Grimaldo RN PATIENT NAME: Slaly Szymanski ee DATE: June 12, 2020 TIME: 9:18 AM PAGER/CONTACT #: [phone] basic metabolic panel on 2020-06-12 Anion gap [Moles/Vol] 8 9-18 mmol/L Low 06-12-20 20 [facility] (32637) Comment: Performed By: #### CBCD1 ### # [facility] [address] [place], [place] [address] Calcium [Mass/Vol] 8.0 8.5-10.2 mg/dL Low 06-12-2020 [facility] (91139) Comment: Performed By: #### CBCD1 ### # [facility] [address] [place], [place] [address] Chloride [Moles/Vol] 104 97-105 mmol/L Normal 0 [facility] (57571) Comment: Performed By: #### CBCD1 ### # [facility] [address] [place], [place] [address] CO2 Blood 26 22-30 mmol/L Normal 06-12-2020 [facility] (34529) Comment: Performed By: #### CBCD1 ### # [facility] [address] [place], [place] [address] Creatinine [Mass/Vol] 0.87 0.58-0.96 mg/dL Normal 06-12-20 [facility] (00 000) Comment: Performed By: #### CBCD1 ### # [facility] [address] [place], [place] [address] Glucose [Mass/Vol] 83 74-99 mg/dL Normal 06-12-2020 [facility] (11235) Comment: Result Comment: The English Diabetes Association (ADA) provides guidance for cutoff [...] Standards of Medical Care in Diabetes 2016; English Diabetes Association. Diabetes Care. 2016;39(Suppl 1). Performed By: #### CBCD1 ### # [facility] [address] [place], [place] [address] Potassium [Moles/Vol] 3.4 3.7-5.1 mmol/L Low 06-12-20 20 [facility] (80455) Comment: Performed By: #### CBCD1 ### # [facility] [address] [place], [place] [address] Sodium [Moles/Vol] 138 136-144 mmol/L Normal 06-12-2020 [facility] (61823) Comment: Performed By: #### CBCD1 ### # [facility] [address] [place], [place] [address] Urea nitrogen [Mass/Vol] 6 7-21 mg/dL Low 06-12 [facility] (05470) Comment: Performed By: #### CBCD1 ### # [facility] [address] [place], [place] [address] type and screen on 2020-06-11 ABO group Nom (Bld) O Normal 06-11-2020 [facility] (53629) Comment: Performed By: #### CBCD1 ### # [place] [address] Comment See Below Normal 06-11-2020 [facility] (24157) Comment: Result Comment: Screen &/or Xmatch expires in 3 days at 12 midnight. Redraw patient at that time. Performed By: #### CBCD1 ### # [place] [address] RH Type Positive Normal 06-11-2020 [facility] (34237) Comment: Performed By: #### CBCD1 ### # [place] [place] [address] surgical tissue exam on 2020-06-11 Surgical Tissue Exam Test performed at [facility] Normal 06-11-2020 [facility] [address] [place] [address] ([id number]) NAME: SALLY MCGREGOR REQUESTING: MALA ALMENDAREZ MD [...] are not see n on the specimen. Esl Professor sections are submitted in formalin in 4 cassettes. LETICIA/chadd VILLASEÑOR M.D., PATHOLOGIST (Electronic signature on file) Signed out: 06/13/2020 16:48 PRINTED: 06/13/2020 Page 1 of 1 Comment: Performed By: #### URIN2 ### # [place] [address] progress on 2020-05 PROGRESS HNO ID: [id number] Normal 06-11-2020 [place] Author: Kimmie Topetem General Service: General Surgery Medical Author Type: Resident Center Type: Progress Notes ([id number]) Filed: 06/11/2020 7:03 AM Note Text: Attestation [...] questions or concerns Mon-Fri 6a-5p please page [phone]. After 5pm and on Weekends and Holidays, please page [phone]. SUBJECTIVE: NAEON. Afebrile. Patient resting in bed [...] - 06/11/20 0606/11/20699 - 06/12/20 0659 Shift 2760-1740 0515-2651 9221-8778 24 Hour Total 1846-2192 0061-6600 4754-1336 24 Hour Total INTAKE PO 600 600 [...] questions or concerns Thu-Thu 6a-5p please page [phone]. After 5pm and on Weekends and Holidays, please page [phone] if in ICU or 2173 if on RNF. operative no on 202 OPERATIVE NO HNO ID: [id number] Normal 06-11-20 [facility] Author: Mala Eddy [facility] Service: General Surgery ([id number]) Author Type: Physician Type: Operative Report Filed: 06/11/2020 1:39 PM Note Text: [facility] - Operative Report SALLY MCGREGOR : 1980 AGE: 39. SEX: F PATIENT TYPE: I HOSP SVC: GENS [place] [facility] 2[place] ATTENDING PHYSICIAN: MALA ALMENDAREZ CSN NUMBER: [id number] DATE OF SURGERY/PROCEDURE: 06/11/2020 INCISION/PROCEDURE START TIME: 10:51 AM INCISION CLOSE/PROCEDURE END TIME: 11:47 AM PREOPERATIVE DIAGNOSIS: Symptomatic liver cyst. POSTOPERATIVE DIAGNOSIS: Symptomatic liver cyst. SURGEON: Mala Almendarez MD DRY CLEANING TEACHER: None. SURGERY/PROCEDURE: Laparoscopic partial right hepatic lobect [...] CLASS: 2, clean, contaminated. Mala Almendarez MD NSA:[id number] /[id number] nursing prog on NURSING PROG HNO ID: [id number] Normal 06-11-20 20 [facility] Author: Garo PickardRnJoao Jackson RN [facility] Service: ? ([id number]) Author Type: Registered Nurse Type: Nursing Progress Note Filed: 06/11/2020 6:25 PM Note Text: Nursing Progress Note Patient Name: Sally Mcgregor Patient Location: [place] [address]/[id number]- Patient refusing IV fluids, states we can restart them when she goes to bed. Informed surgery team. This note was completed by: Garo Jackson RN hemogram on 2020-05 Erythrocyte distribution 13.0 11.7-14.4 % Normal 06-11 [facility]RBC[facility]Ratio] System (86195) Comment: Performed By: #### CBCD1 ### # [facility] [address] [place] [id number] Hematocrit (Bld) [Volume 35.0 34.1-44.9 % Normal 06-11 [facility] fraction] System (00 000) Comment: Performed By: #### CBCD1 ### # [facility] [address] [place], [place] [address] Hemoglobin (Bld) 11.4 11.2-15.7 g/dL Normal 06-11-2020 [facility] [Mass/Vol] System (0 0000) Comment: Performed By: #### CBCD1 ### # [facility] [address] [place], [place] [address] MCH (RBC) [Entitic mass] 29.2 25.6-32.2 pg Normal 06-11 [facility] (00 000) Comment: Performed By: #### CBCD1 ### # [facility] [address] [place], [place] [address] MCHC (RBC) [Mass/Vol] 32.6 31.6-34.8 % Normal 06-11-20 20 [facility] (78075) Comment: Performed By: #### CBCD1 ### # [facility] [address] [place], [place] [address] MCV (RBC) [Entitic vol] 89.5 79.4-94.8 fl Normal 2019 [facility] (00 000) Comment: Performed By: #### CBCD1 ### # [facility] [address] [place], [place] [address] Platelet mean volume (Bld) 11.1 9.4-12.3 fl Normal [facility] [Entitic vol] System (71894) Comment: Performed By: #### CBCD1 ### # [facility] [address] [place], [place] [address] Platelets (Bld) [#/Vol] 229 182-369 thou/cmm Normal 2019 [facility] (00 000) Comment: Performed By: #### CBCD1 ### # [facility] [address] [place], [place] [address] RBC (Bld) [#/Vol] 3.91 3.93-5.22 mil/cmm Low 06-11-2020 Chibwe adi [facility] [employer] [facility] (20377) Comment: Performed By: #### CBCD1 ### # [facility] [address] [place], [place] [address] RDW SD 42.5 36.4-46.3 fl Normal 06-11-2020 [facility] (58170) Comment: Performed By: #### CBCD1 ### # [facility] [address] [place], [place] [address] WBC (Bld) [#/Vol] 6.54 3.98-10.04 thou/cmm Normal 06-11-2020 [facility] (00 000) Comment: Performed By: #### CBCD1 ### # [facility] [address] [place], [place] [address] case managem on CASE MANAGEM HNO ID: [id number] Normal 06-11-20 [facility] Author: Britni PickardRn) [place] Grimaldo [facility] Service: Care Management ([id number]) Author Type: Registered Nurse Type: Care Mgt [...] 11, 2020 TIME: 9:10 AM PAGER/CONTACT #: [phone] anes preop on 06-11 ANES PREOP HNO ID: [id number] Normal 06-11-2020 [facility] Service: Anesthesiology ([id number]) Author Type: Physician Type: Anesthesia PreOp Filed: [...] Benign liver cyst 05/24/2010 CT scan at [facility] 11/2009 and 04/2010 showe 4 mm increase in size . No pain. No elevated LFTs on 03/11/2010. - Calculus of kidney 05/17/[address] Nicolas: Hospitalized age 20, and again later -- no procedures so far ([facility], most, 1995 [facility]) - Cancer (HCC) - Diverticulosis [...] Approx. 3 cigarettes daily-1 pack every w ak chin Substance Use Topics - Alcohol use: Yes [...] INTRAVENOUS q 3 H PRN Nigel (Res) Dillon 1 mg at 06/11/20 0536 - [MAR Hold due to Transfer] NaCl 0.9% iv infusion 125 mL/hr INTRAVENOUS CONTINUOUS Nigel (Res) Dillon 125 mL/hr at 06/10/20 2248 1 25 [...] June 11, 2020 TIME: 9:49 AM CSN: [id number] anes post on 06-11 ANES POST HNO ID: [id number] Normal 06-11-2020 [facility] Author: Edwin Sesay [place] ([id number]) Service: Anesthesiology Author Type: Physician Type: Anesthesia [...] #: progress on 2020-05 PROGRESS HNO ID: [id number] Normal 06-10-2020 [facility] Author: Mer PickardRnJoao Bejarano RN [place] ([id number]) Service: Nursing Author Type: Registered Nurse Type: [...] resident Kimmie was notified. PROGRESS HNO ID: [id number] Normal 06-10-2020 [facility] Author: Kimmie Jennings [place] ([id number]) Service: General Surgery Author Type: Resident Type: [...] questions or concerns Mon-Fri 6a-5p please page [phone]. After 5pm and on Weekends and Holidays, please page [phone]. SUBJECTIVE: NAEON. Afebrile. Patient resting in bed [...] 0659 06/10/20 0700 - 06/11/20 0659 Shift 3233-2341 0794-7378 4445-4363 24 Hour Total 4445-8542 2624-2876 4465-4890 24 Hour Total INTAKE PO 370 986 4767 PO 139 173 5843 Shift Total 769 121 3839 OUTPUT Urine Urine Not Saved. 2 x [...] questions or concerns Thu-Thu 6a-5p please page [phone]. After 5pm and on Weekends and Holidays, please page [phone] if in ICU or 217 if on RNF. 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 This test was developed and its performance characteristics determined by [facility]'s Johnnie Abreu Pathology and Laboratory Medicine [employer]. This test has bee n authorized by [...] issued on November 12, 2019. Performing Laboratory: [facility] [address] [place] [address] Performed By: #### CBCD1 ### # [address] [address] basic metabolic panel on 2020-06-10 Anion gap [Moles/Vol] 10 9-18 mmol/L Normal 06-10-20 20 [facility] (25326) Comment: Performed By: #### CBCD1 ### # [address] [address] Calcium [Mass/Vol] 9.2 8.5-10.2 mg/dL Normal 06-10-2020 [facility] (52292) Comment: Performed By: #### CBCD1 ### # [facility] [address] [place], [place] [address] Chloride [Moles/Vol] 102 97-105 mmol/L Normal 0 [facility] (89930) Comment: Performed By: #### CBCD1 ### # [facility] [address] [place], [place] [address] CO2 Blood 27 22-30 mmol/L Normal 06-10-2020 [facility] (63511) Comment: Performed By: #### CBCD1 ### # [facility] [address] [place], [place] [address] Creatinine [Mass/Vol] 0.90 0.58-0.96 mg/dL Normal 06-10-20 20 [facility] (00 000) Comment: Performed By: #### CBCD1 ### # [facility] [address] [place], [place] [address] Glucose [Mass/Vol] 105 74-99 mg/dL High 06-10-2020 [facility] (25986) Comment: Result Comment: The English Diabetes Association (ADA) provides guidance for cutoff [...] Standards of Medical Care in Diabetes 2016; English Diabetes Association. Diabetes Care. 2016;39(Suppl 1). Performed By: #### CBCD1 ### # [facility] [address] [place], [place] [address] Potassium [Moles/Vol] 3.7 3.7-5.1 mmol/L Normal 06-10-20 [facility] (00 000) Comment: Performed By: #### CBCD1 ### # [facility] [address] [place], [place] [address] Sodium [Moles/Vol] 139 136-144 mmol/L Normal 06-10-2020 [facility] (88646) Comment: Performed By: #### CBCD1 ### # [facility] [address] [place], [place] [address] Urea nitrogen [Mass/Vol] 8 7-21 mg/dL Normal 06-10 [facility] (46571) Comment: Performed By: #### CBCD1 ### # [facility] [address] [place] [id number] allied health on 03-06-27 ALLIED HNO ID: [id number] Normal 06-10-2020 [facility] Author: Chaplain Suarez (Chaplain) General Service: Spiritual Care Medical Author Type: Director Of Religious Activities Center Type: [facility] ([id number]) Filed: 06/10/2020 7:39 PM Note Text: SPIRITUALCARE Spiritual Care Visit- Brief Note Name: Sally Mcgregor Date: June 10, 2020 Notes: Pre-surgery Patient Nothing needed tonight. Director Of Religious Activities Signature: Chaplain Erick To contact the Spiritual Care Department: Please call [phone] or Page the On-Call Director Of Religious [phone] Thank you for the opportunity to be of service. This is an electronically created document. IF PRINTED, PLEASE DO NOT REMOVE FROM THE CHART OR MODIFY NH INTED COPY. progress on 2020-05 PROGRESS HNO ID: [id number] Normal 06-09-2020 [place] Author: Kimmie Jennings General Service: General Surgery Medical Author Type: Resident Center Type: Progress Notes ([id number]) Filed: 06/09/2020 7:14 AM Note Text: Attestation [...] questions or concerns Thu-Thu 6a-5p please page [phone]. After 5pm and on Weekends and Holidays, please page [phone]. SUBJECTIVE: NAEON. Afebrile. Patient resting in bed [...] - 06/09/20 0606/09/20699 - 06/10/20 0659 Shift 6025-9856 8043-0010 3141-2457 24 Hour Total 9979-5541 4234-5930 4178-6809 24 Hour Total INTAKE Shift Total OUTPUT [...] (TYLENOL) 975 mg ORAL q 6 H [facility] N - oxyCODONE IR 5-10 mg tab(s) [...] in ICU or 2173 if on RNF. hemogram on 2020-05 Erythrocyte distribution 13.2 11.7-14.4 % Normal 06-09 [facility] width (RBC) [Ratio] System (03026) Comment: Performed By: #### GFR #### [address] [address] Hematocrit (Bld) [Volume 33.7 34.1-44.9 % Low 06-09 [facility]] System (00 000) Comment: Performed By: #### GFR #### [facility] [address] [place], [place] [address] Hemoglobin (Bld) [Mass/Vol] 10.6 11.2-15.7 g/dL Low [facility] (00 000) Comment: Performed By: #### GFR #### [place] [address] MCH (RBC) [Entitic mass] 28.8 25.6-32.2 pg Normal 06-09 [facility] (00 000) Comment: Performed By: #### GFR #### [place] [address] MCHC (RBC) [Mass/Vol] 31.5 31.6-34.8 % Low 06-09-20 20 [facility] (62950) Comment: Performed By: #### GFR #### [place] [address] MCV (RBC) [Entitic vol] 91.6 79.4-94.8 fl Normal 2019 [facility] (00 000) Comment: Performed By: #### GFR #### [place] [address] Platelet mean volume (Bld) 11.6 9.4-12.3 fl Normal [facility] [Entitic vol] System (54612) Comment: Performed By: #### GFR #### [place] [id number] Platelets (Bld) [#/Vol] 199 182-369 thou/cmm Normal 2019 [facility] (00 000) Comment: Performed By: #### GFR #### [place] [address] RBC (Bld) [#/Vol] 3.68 3.93-5.22 mil/cmm Low 06-09-2020 [facility] (61465) Comment: Performed By: #### GFR #### [place] [address] RDW SD 43.9 36.4-46.3 fl Normal 06-09-2020 [facility] (92621) Comment: Performed By: #### GFR #### [facility] [address] [place], [place] [address] WBC (Bld) [#/Vol] 6.47 3.98-10.04 thou/cmm Normal 06-09-2020 [facility] (00 000) Comment: Performed By: #### GFR #### [facility] [address] [place], [place] [address] basic metabolic panel on 2020-06-09 Anion gap [Moles/Vol] 11 9-18 mmol/L Normal 06-09-20 20 [facility] (51196) Comment: Performed By: #### GFR #### [facility] [address] [place], [place] [address] Calcium [Mass/Vol] 8.8 8.5-10.2 mg/dL Normal 06-09-2020 [facility] (56555) Comment: Performed By: #### GFR #### [facility] [address] [place], [place] [address] Chloride [Moles/Vol] 106 97-105 mmol/L High 0 [facility] (77524) Comment: Performed By: #### GFR #### [facility] [address] [place], [place] [address] CO2 Blood 24 22-30 mmol/L Normal 06-09-2020 [facility] (90109) Comment: Performed By: #### GFR #### [facility] [address] [place], [place] [address] Creatinine [Mass/Vol] 0.82 0.58-0.96 mg/dL Normal 06-09-20 20 [facility] (00 000) Comment: Performed By: #### GFR #### [facility] [address] [place], [place] [address] Glucose [Mass/Vol] 84 74-99 mg/dL Normal 06-09-2020 [facility] (83589) Comment: Result Comment: The English Diabetes Association (ADA) provides guidance for cutoff [...] Standards of Medical Care in Diabetes 2016; English Diabetes Association. Diabetes Care. 2016;39(Suppl 1). Performed By: #### GFR #### [facility] [address] [place], [place] [address] Potassium [Moles/Vol] 3.8 3.7-5.1 mmol/L Normal 06-09-20 [facility] (00 000) Comment: Performed By: #### GFR #### [address] [address] Sodium [Moles/Vol] 141 136-144 mmol/L Normal 06-09-2020 [facility] (35446) Comment: Performed By: #### GFR #### [address] [address] Urea nitrogen [Mass/Vol] 9 7-21 mg/dL Normal 06-09 [facility] (42957) Comment: Performed By: #### GFR #### [address] [address] protime on INR Coag (PPP) [Relative 1.07 0.90-1.30 {INR} Normal 06-08 [facility] time] System (00 000) Comment: Result Comment: Vitamin K An tagonist (VKA) Therapeutic Range: INR 2 to 3 (Target INR of 2.5) Note: For patients treated w ith VKA drugs, such as warfarin, the English College of Chest Ph ysicians 2012 Guideline recommends a therapeutic INR range of 2 to 3 (target INR of 2.5). This recommendation includes high -risk patients with antiphospholipid syndrome with previous arter ial or venous thromboembolism, current-generation mechanica l or bioprosthetic aortic heart valve replacement. Note: Patients with diesel engine mechanic al aortic valve replacement and additional risk factors for thromboembolic events (atrial fibrillation, previous throm boembolism, LV dysfunction, hypercoagulable conditions) or an older generation mechanical AVR (i.e., ball in-Cage) or any mechanical MVR should have a INR therapeutic range of 2 .5 to 3.5 target INR of 3). Magdalene GH, et al. Chest 2012 ; 141:7S-47S Calderon FERNÁNDEZ et al. [facility] 20 17; 70: 252-289 Performed By: #### GFR #### [facility] [address] [place], [place] [address] PT Coag (PPP) [Time] 11.1 9.7-13.0 sec Normal 0 [facility] (37398) Comment: Performed By: #### GFR #### [address] [address] phosphorous blood o n 2020-06-08 Phosphate [Mass/Vol] 3.3 2.7-4.8 mg/dL Normal 0 [facility] (15288) Comment: Performed By: #### GFR #### [address] [address] nursing prog on NURSING PROG HNO ID: [id number] Normal 06-08-20 20 [facility] Author: Garo Jackson RN [facility] Service: ? ([id number]) Author Type: Registered Nurse Type: Nursing Progress Note Filed: 06/08/2020 10:56 AM Note Text: Nursing Progress Note Patient Name: Sally Mcgregor Patient Location: [address]/[id number] Spoke with Doctor Dick regarding IV contrast allergy and th e need for steroid prep. This note was completed by: Garo Jackson RN mri panc/james wo/w ivcon on 2020-06-08 MRI PANC/JAMES WO/W Final Report Normal 0 [facility] IVCON DATE OF EXAM: Jun 08 2020 6:[address] [place] [address]30 - MRI PANC/JAMES WO/W IVCON / ([id number]) PROCEDURE REASON: Liver lesion, >1cm, US indeterminate, [...] x 8.0 cm . 2. Normal MRCP. Cigar Packer And Sorter: PSCB Transcribe Date/Time: Jun 08 2020 7:48P Dictated by : ALICE ALCARAZ MD This examination was interpreted and the report reviewed and electronically signed by: ALICE ALCARAZ MD on Jun 08 2020 8:42PM EST mri 3d post processing on 2020-06-08 MRI 3D POST Final Report Normal 06-08-2020 Gabriela barboza General PROCESSING DATE OF EXAM: Jun 08 [facility] PROCESSING / ([id number]) PROCEDURE REASON: Abd pain, chronic, intermittent Physician [...] x 8.0 cm . 2. Normal MRCP. Cigar Packer And Sorter: PSCAudrey Transcribe Date/Time: Jun 08 2020 7:48P Dictated by : ALICE ALCARAZ MD This examination was interpreted and the report reviewed and electronically signed by: ALICE ALCARAZ MD on Jun 08 2020 8:42PM EST magnesium blood on 2020-06-08 Magnesium [Mass/Vol] 2.0 1.7-2.3 mg/dL Normal 0 [facility] (26162) Comment: Performed By: #### LIP #### [place] [id number] lipase blood on Lipase Blood 31 16-61 U/L Normal 06-08-2020 [facility] (51690) Comment: Performed By: #### GFR #### [facility] [address] [place], [place] [address] history physical on 2020-06-08 HISTORY HNO ID: [id number] Normal 06-08-2020 [place] PHYSICAL Author: Chris Kurtz [facility] Service: General Surgery Medical Author Type: Resident Center Type: [facility] ([id number]) Filed: 06/08/2020 7:24 AM Note Text: Attestation signed by Mala Almendarez at 06/08/2020 7:09 PM Attending Note I personally saw and examined the patient. I reviewed the resident's note. I agree with the resident's assessment and plan with the [facility] revisions and/or additions: Admit for symptomatic hepatic cyst. Plan for cyst fenestrati on on Thursday. Signature: Mala Almendarez MD Date: 06/08/2020 Time: 7:09 PM HISTORY AND PHYSICAL EXAMINATION SERVICE DATE: 06/08/2020 SERVICE TIME: 7:12 AM Subjective CHIEF COMPLAINT: Abdominal Pain HPI: 39 year old female presents as a direct admission to [facility] with abdominal pain and a known history of hepatic cysts with rec urrent pancreatitis. Her last admission was for pancreatitis, in [place] [facility] she had imaging showing increasing size of [...] Benign liver cyst 05/24/2010 CT scan at [facility] 11/2009 and 04/2010 showe 4 mm increase in size . No pain. No elevated LFTs on 03/11/2010. - Calculus of kidney 05/17/[address] Nicolas: Hospitalized age 20, and again later -- no procedures so far ([facility], most, 1995 [facility]) - Cancer (HCC) - Diverticulosis [...] removed - TOTAL ABDOM HYSTERECTOMY 08/31/06 Hysterectomy, [facility] Problem Relation Age of Onset [...] Approx. 3 cigarettes daily-1 pack every w ak chin Substance Use Topics - Alcohol use: Yes [...] in the last 72 hours. Invalid input(s): [facility] Diagnostic tests reviewed for today's [...] please page [phone] if in ICU or 2176 if on RNF. hepatic function panel on 2020-06-08 Albumin [Mass/Vol] 4.7 3.9-4.9 g/dL Normal 06-08-2020 [facility] (41111) Comment: Performed By: #### GFR #### [address] [address] ALP [Catalytic activity/Vol] 94 34-123 U/L Normal 0 06-08-2020 [facility] (00 000) Comment: Performed By: #### GFR #### [address] [address] ALT [Catalytic activity/Vol] 17 7-38 U/L Normal 0 06-08-2020 [facility] (00 000) Comment: Performed By: #### GFR #### [address] [address] AST [Catalytic activity/Vol] see below 13-35 Normal 0 06-08-2020 [facility] (00 000) Comment: Result Comment: Unable to as say. Specimen Hemolyzed Performed By: #### GFR #### [address] [address] Bilirubin [Mass/Vol] 0.3 0.2-1.3 mg/dL Normal 0 [facility] (24036) Comment: Performed By: #### GFR #### [facility] [address] [place], [place] [address] Bilirubin [Mass/Vol] see below 0.0-0.2 Normal 0 [facility] [employer] [facility] (00 000) Comment: Result Comment: Unable to as say. Specimen Hemolyzed Performed By: #### GFR #### [facility] [address] [place], [place] [address] Protein [Mass/Vol] 7.8 6.3-8.0 g/dL Normal 06-08-2020 [facility] (85273) Comment: Performed By: #### GFR #### [facility] [address] [place], [place] [address] hemogram on 2020-05 Erythrocyte distribution 13.3 11.7-14.4 % Normal 06-08 [facility] width (RBC) [Ratio] System (71007) Comment: Performed By: #### LIP #### [facility] [address] [place], [place] [address] Hematocrit (Bld) [Volume 38.1 34.1-44.9 % Normal 06-08 [place] [facility] fraction] System (00 000) Comment: Performed By: #### LIP #### [address] [address] Hemoglobin (Bld) 11.8 11.2-15.7 g/dL Normal 06-08-2020 [facility] [Mass/Vol] System (0 0000) Comment: Performed By: #### LIP #### [facility] [address] [place], [place] [address] MCH (RBC) [Entitic mass] 28.4 25.6-32.2 pg Normal 06-08 [facility] (00 000) Comment: Performed By: #### LIP #### [address] [address] MCHC (RBC) [Mass/Vol] 31.0 31.6-34.8 % Low 06-08-20 20 [facility] (81423) Comment: Performed By: #### LIP #### [facility] [address] [place], [place] [address] MCV (RBC) [Entitic vol] 91.8 79.4-94.8 fl Normal 2019 [facility] (00 000) Comment: Performed By: #### LIP #### [facility] [address] [place] [id number] Platelet mean volume (Bld) 11.6 9.4-12.3 fl Normal [facility] [Entitic vol] System (52516) Comment: Performed By: #### LIP #### [facility] [address] [place] [id number] Platelets (Bld) [#/Vol] 230 182-369 thou/cmm Normal 2019 [facility] (00 000) Comment: Performed By: #### LIP #### [facility] [address] [place] [id number] RBC (Bld) [#/Vol] 4.15 3.93-5.22 mil/cmm Normal 06-08-2020 [facility] (00 000) Comment: Performed By: #### LIP #### [facility] [address] [place] [id number] RDW SD 44.9 36.4-46.3 fl Normal 06-08-2020 [facility] (24784) Comment: Performed By: #### LIP #### [facility] [address] [place], [place] [address] WBC (Bld) [#/Vol] 7.30 3.98-10.04 thou/cmm Normal 06-08-2020 [facility] (00 000) Comment: Performed By: #### LIP #### [facility] [address] [place] [id number] case mgt init asses on 2020-06-08 CASE MGT INIT HNO ID: [id number] Normal 020 [facility] Author: Britni (Rn) [facility] Service: Care Management ([id number]) Author Type: Registered Nurse Type: Care Mgt Initial Assessment Filed: 06/08/2020 11:00 AM Note Text: CARE MANAGEMENT: ASSESSMENT AND DISCHARGE PLAN SERVICE DATE: June 08, 2020 SERVICE TIME: 10:50 AM PRIMARY CARE PHYSICIAN: Macrelino Mejia MD (Confirmed with patient) ADMISSION STATUS: Inpatient Needs Prior to Discharge: Pharmacy Bedside Delivery MEDICAL: [facility] MEDICAID Patient/Esl Professor Stated Goals: To return home to life as it was Health Insurance: [facility] Issues Impacting Discharge Plan: Uncontrolled Uncontrolled: History [...] completed Advance Directive: Current Advance Directive: None Busboy Attempted to Assist with AD Completion: Yes [...] Patient Currently Receive Any Community Services or [facility] Care?: None Equipment Prior to [...] Completely I feel financially burdened by my hmv-aw-fdzkkh expenses for my prescription medication:: 0 - Disagree Completely Risk Score: 0 Patient is categorized as: Low risk < 2 Are you interested in bedside delivery of your medications? Yes Is Patient Psychosocially Complex?: No ASSESSMENT AND PLAN: Medical Needs: Medical Needs: Two or more chronic diseases Psychosocial Needs: Psychosocial Needs: None FREEDOM OF CHOICE EXPLAINED: [place] of Choice Given: No Reason Not Given: [...] 08, 2020 TIME: 10:50 AM PAGER/CONTACT #: [phone] basic metabolic panel on 2020-06-08 Anion gap [Moles/Vol] 11 9-18 mmol/L Normal 06-08-20 [facility] (92772) Comment: Performed By: #### LIP #### [address] [address] Calcium [Mass/Vol] 9.6 8.5-10.2 mg/dL Normal 06-08-2020 [facility] (04087) Comment: Performed By: #### LIP #### [address] [address] Chloride [Moles/Vol] 104 97-105 mmol/L Normal 0 [facility] (49531) Comment: Performed By: #### LIP #### [facility] [address] [place], [place] [address] CO2 Blood 25 22-30 mmol/L Normal 06-08-2020 [facility] (59365) Comment: Performed By: #### LIP #### [facility] [address] [place], [place] [address] Creatinine [Mass/Vol] 0.80 0.58-0.96 mg/dL Normal 06-08-20 [facility] (00 000) Comment: Performed By: #### LIP #### [facility] [address] [place], [place] [address] Glucose [Mass/Vol] 91 74-99 mg/dL Normal 06-08-2020 [facility] (77153) Comment: Result Comment: The English Diabetes Association (ADA) provides guidance for cutoff [...] Standards of Medical Care in Diabetes 2016; English Diabetes Association. Diabetes Care. 2016;39(Suppl 1). Performed By: #### LIP #### [facility] [address] [place], [place] [address] Potassium [Moles/Vol] 3.7 3.7-5.1 mmol/L Normal 06-08-20 20 [facility] (00 000) Comment: Performed By: #### LIP #### [facility] [address] [place], [place] [address] Sodium [Moles/Vol] 140 136-144 mmol/L Normal 06-08-2020 [facility] (47704) Comment: Performed By: #### LIP #### [facility] [address] [place], [place] [address] Urea nitrogen [Mass/Vol] 13 7-21 mg/dL Normal 06-08 [facility] (43957) Comment: Performed By: #### LIP #### [facility] [address] [place] [id number] allied health on 03-06-25 ALLIED HEALTH HNO ID: [id number] Normal 020 [facility] Author: Deepa (Rt) [facility] ([id number]) Service: Radiology Author Type: Warehouse Shipper Type: Allied Health Filed: 06/08/2020 7:02 PM Note Text: Spoke to Garo (RN), in regards to her itching and scratching after the MRI was completed. Garo informed me that she had been itching an d scratching all day. Garo came down and gave the patient medication for the itching and took her back to the room. Kelley Noriega [facility] HNO ID: [id number] Normal 020 [facility] Author: Deepa Mcintosh) [facility] ([id number] Service: Radiology Author Type: Warehouse Shipper Type: Allied Health Filed: 06/08/2020 5:56 PM [...] TIME: 5:53 PM ALLIED HEALTH HNO ID: [id number] Normal 020 [facility] Author: Deepa (Rt) [facility] ([id number]) Service: Radiology Author Type: Warehouse Shipper Type: Allied Health Filed: 06/08/2020 4:21 PM Note Text: Called RN to get MRI order changed to w/wo per radiology pro tocol. Patient is not listed as allergy to gadolinium and creat is WNL. Mira l schedule STAT MRI as soon as order is changed activated ptt on 03-06-25 aPTT Coag (Bld) [Time] 30.5 23.0-32.4 sec Normal 020 [facility] (00 000) Comment: Result Comment: Unfractionat [...] AP TT reagent in use throughout the [facility]. Performed By: #### GFR #### [facility] [address] [place] [address] hosp on 2020-06-07 HOSP Patient:Sally Mcgregor Normal 05-16 [place] MRN: General Height:5' 1(1.549 m) Medical Weight:197 lb 9.6 oz (89.631 kg) Center Outpatient Medications as of 06/11/20: ([id number]) prazosin (MINIPRESS) 1 mg cap hyoscyamine (LEVSIN) [...] the resident's assessment and [facility] revisions and/or additions: Admit for symptomatic hepatic cyst. Plan for cyst fenestrati on on Thursday. Signature: Mala Almendarez MD Date: 06/08/2020 Time: 7:09 PM HISTORY AND PHYSICAL EXAMINATION SERVICE DATE: 06/08/2020 SERVICE TIME: 7:12 AM Subjective CHIEF COMPLAINT: Abdominal Pain HPI: 39 year old female presents as a direct adm ission to [facility] with abdominal pain and a known [...] Benign liver cyst 05/24/2010 CT scan at [facility] 11/2009 and 04/2010 showe 4 mm increase in size . No pain. No elevated LFTs on 03/11/2010. - Calculus of kidney 05/17/[address] Nicolas: Hospitalized age 20, a nd again later -- no procedures so far ([facility], [facility], 1995 [facility]) - Cancer (HCC) - Diverticulosis [...] removed - TOTAL ABDOM HYSTERECTOMY 08/31/06 Hysterectomy, [facility] Problem Relation Age of Onset [...] Approx. 3 cigarettes daily-1 pack every w ak chin Substance Use Topics - Alcohol use: Yes [...] questions or concerns Thu-Thu 6a-5p please page [phone]. After 5pm and on Weekends an d Holidays, please page [phone] if in ICU or [phone] if on RNF. Britni Grimaldo, RN, RN 06/08/2020 11:00 AM Signed CARE MANAGEMENT: ASSESSMENT AND DISCHARGE PLAN SERVICE DATE: June 08, 2020 SERVICE TIME: 10:50 AM PRIMARY CARE PHYSICIAN: Marcelino Mejia MD (Confirmed with patient) ADMISSION STATUS: Inpatient Needs Prior to Discharge: Pharmacy Bedside Delivery MEDICAL: [facility] MEDICAID Patient/Esl Professor Stated Goals: To return home to life as it was Health Insurance: [facility] Issues Impacting Discharge Plan: Uncontrolled Uncontrolled: History [...] completed Advance Directive: Current Advance Directive: None Busboy Attempted to Assist with AD Completion: Yes [...] Patient Currently Receive Any Community Services or [facility] e Care?: None Equipment Prior to Admission: [...] Completely I feel financially burdened by my jtj-ry-pqvtbb expens es for my prescription medication:: 0 - Disagree Completely Risk Score: 0 Patient is categorized as: Low risk < 2 Are you interested in bedside delivery of your medications? Yes Is Patient Psychosocially Complex?: No ASSESSMENT AND PLAN: Medical Needs: Medical Needs: Two or more chronic diseases Psychosocial Needs: Psychosocial Needs: None FREEDOM OF CHOICE EXPLAINED: [place] of Choice Given: No Reason Not Given: [...] 08, 2020 TIME: 10:50 AM PAGER/CONTACT #: [phone] Jasmine Chavez, RN 06/08/2020 10:56 AM Signed Nursing Progress Note Patient Name: Sally Mcgregor Patient Location: [place] [address] [address] Spoke with Doctor Jennings regarding IV con [...] soon as order is changed RT Masoud, [email or web address] 06/08/2020 5:56 PM Signed Radiology Service Progress [...] questions or concerns Thu-Thu 6a-5p please page [phone]. After 5pm and on Weekends and Holidays, please page [phone]. SUBJECTIVE: NAEON. Afebrile. Patient resting in bed [...] 06/08/206[address] - 06/09/2065806/09/20699 - 06/10/20 0659 Shift 7782-3750 9505-1964 23 00-0659 24 Hour Total 6335-7305 5154-6557 3048-8438 24 Hour Total INTAKE Shift Total OUTPUT [...] (TYLENOL) 975 mg ORAL q 6 H NH N - oxyCODONE IR 5-10 mg tab(s) [...] questions or concerns Thu-Thu 6a-5p please page [phone]. After 5pm and on Weekends an d Holidays, please page [phone] if in ICU or [phone] if on RNF. Mer Bejarano, RN, RN [...] questions or concerns Mon-Fri 6a-5p please page [phone]. After 5pm and on Weekends and Holidays, please page [phone]. SUBJECTIVE: NAEON. Afebrile. Patient resting in bed [...] - 06/10/20 0606/10/20699 - 06/11/20 0659 Shift 3828-2112 1497-0443 23 00-0659 24 Hour Total 5863-2606 0485-2521 9739-3399 24 Hour Total INTAKE PO 146 887 6600 PO 876 658 9954 Shift Total 065 113 5333 OUTPUT Urine Urine Not Saved. 2 x [...] questions or concerns Thu-Thu 6a- please page [phone]. After 5pm and on Weekends an d Holidays, please page [phone] if in ICU or [phone] if on RNF. Mre Bejarano, RN, RN 06/10/2020 7:50 AM Signed [...] 2020 Notes: Pre-surgery Patient Nothing needed tonight. Director Of Religious Activities Signature: Chaplain Erick To contact the Spiritual Care Department: Please call [phone] or Page the On-Call Director Of Religious Activities at pag er [phone] Thank you for the opportunity to be of service. This is an electronically created document. IF PRINTED, PLEASE DO NOT REMOVE FROM THE CHART OR MODIFY NH INTED COPY. Kimmie Jennings DO 06/11/2020 7:03 AM Cosign Needed Elective General Surgery Progress Note SERVICE DATE: 06/11/2020 [facility] Service Pager: For questions or concerns Thu-Thu 6a- please page [phone]. After 5pm and on Weekends and Holidays, please page [phone]. SUBJECTIVE: NAEON. Afebrile. Patient resting in bed [...] 06/10/20699 - 06/11/2065806/11/20699 - 06/12/20 0659 Shift 0095-5040 3919-9858 23 00-0659 24 Hour Total 0934-2942 9918-0331 0054-6280 24 Hour Total INTAKE PO 600 600 [...] questions or concerns Thu-Thu 6a-5p please page [phone]. After 5pm and on Weekends an d Holidays, please page [phone] if in ICU or [phone] if on RNF. Britni Grimaldo RN, RN [...] 11, 2020 TIME: 9:10 AM PAGER/CONTACT #: [phone] Ruben Thompson MD 06/11/2020 9:51 AM Signed [...] Benign liver cyst 05/24/2010 CT scan at [facility] 11/2009 and 04/2010 showe 4 mm increase in size . No pain. No elevated LFTs on 03/11/2010. - Calculus of kidney 05/17/[address] Nicolas: Hospitalized age 20, a nd again later -- no procedures so far ([facility], [facility], 1995 [facility]) - Cancer (HCC) - Diverticulosis [...] removed - TOTAL ABDOM HYSTERECTOMY 08/31/06 Hysterectomy, [facility] Problem Relation Age of Onset [...] Approx. 3 cigarettes daily-1 pack every w ak chin Substance Use Topics - Alcohol use: Yes [...] INTRAVENOUS q 3 H PRN Nigel (Res) Dillon 1 mg at 0536 - [MAR Hold [...] June 11, 2020 TIME: 9:49 AM CSN: [id number] Progress Notes ([facility]): Johnny Winn MD 06/06/2020 10:30 [...] ysts. All questions answered. MD [facility] 06/06/2020 10:53 AM Signed Patient is calling back with additional questions after speaking with Dr. Winn today. Please call patient. cnpn on 2020-06-06 CNPN Telephone (GSTNOR) Normal 06-06-2020 [place] [facility] SAMSALLY ([id number]) 1980 [facility] Date Time Provider Department ([id number]) 06/06/20 JOHNNY WINN GSTNOR During your visit [...] ysts. All questions answered. MD [facility] 06/06/2020 10:53 AM Signed Patient [...] Order(s):CONSULT TO ALLERGY/IMMUNOLOGY [ 9001] Order #: [id number]: 1 FUTURE Prescriptions as of 06/06/2020 Sig: [...] 06/06/20 progress on 2020-05 PROGRESS HNO ID: [id number] Normal 06-05-2020 [facility] Author: Mala sosa ([id number]) Service: ? Author Type: Physician Type: Progress [...] MD progress on 2020-05 PROGRESS HNO ID: [id number] Normal 06-01-2020 [facility] Author: Branden PickardNetwork Navigator) Amalia Mata ([id number]) Service: ? Author Type: Automatic I Threading Machine Feeder Type: Progress Notes Filed: 06/01/2020 12:42 PM Note Text: Patient has follow up with next Thursday for Pancreatitis. progress on 2020-05 PROGRESS HNO ID: [id number] Normal 05-31-2020 [facility] Author: Marcelino Mejia [place] ([id number]) Service: ? Author Type: Physician Type: Progress Notes Filed: 05/31/2020 10:49 AM Note Text: Patient has a drafter (cad) electronic and would work on getting h er back in with them. She has been seeing them for recurring pancreatit is and stomach issues. I have nothing further I can add to her care at this time. PROGRESS HNO ID: [id number] Normal 05-31-2020 [facility] Author: Branden (Network Navigator) Amalia [place] ([id number]) Service: ? Author Type: Automatic I Threading Machine Feeder Type: Progress Notes Filed: 05/31/2020 8:49 AM [...] appointment. Thank you SUMMARY: Pt discharged from [facility] on May 29, 2020 Admitted for: Intractable nausea and vomitting Contact made with patient: Yes Hi my name is ANDRE Graham and I am calling from the [facility] on behalf of your PCP, Marcelino [...] to speak with a social work steam plant control room operator to help give you support for any [...] I will send your request to a showroom consultant who will contact and assist you with [...] out to patient to assist with scheduling EXERCISE EQUIPMENT SPECIALIST: Patient Mira status is: Active account Thank [...] on 2020-05-31 CNPN Telephone (GSTNOR) Normal 05-31-2020 [place] [facility] SALLY MCGREGOR ([id number]) 1980 [facility] Date Time Provider Department ([id number]) 05/31/20 JOHNNY WINN GSTNOR During your visit today, we recorded the following informati on about you: Pierce Sunil Cates 05/31/2020 2:37 PM Signed Patient call, said she was doing ok yesterday, today having epigastric abdominal pain, nausea and vomiting. Has appt [facility] Dr. Almendarez next week. Advised ER [...] 05/31/20 progress on 2020-05 PROGRESS HNO ID: [id number] Normal 05-30-2020 [facility] Author: Allie (Network Navigator) Skyler Mata ([id number]) Service: ? Author Type: Automatic I Threading Machine Feeder Type: Progress Notes Filed: 05/31/2020 8:49 AM Note Text: TRANSITIONAL CARE MANAGEMENT (TCM) COMMUNITY MONITORING PROG BRITTANI Provider Action/FYI: Message left for patient. Attempting to schedule TCM appoint ment SUMMARY: [facility]. Admitted for: intractable nausea and vomiting Contact made with patient: No - scheduled next outreach for next business day in the Track Pt Outreach section Outreach ended cnptoutreach on CNPTOUTREACH Patient Outreach (FAMPWS) Normal 0 05-30-2020 [place] SALLY Martinez ([id number]) 1980 [place] Date Time Provider Department ([id number]) 05/30/20 ALLIE CHOWDHURY (NETWORK NAVIGATOR)RAMA During your visit today, we recorded the following informati on about you: ANDRE Sorensen 05/31/2020 8:49 AM Signed TRANSITIONAL CARE MANAGEMENT (TCM) COMMUNITY MONITORING PROG BRITTANI Provider Action/FYI: Message left for patient. Attempting to schedule TCM appoint ment SUMMARY: [facility]. Admitted for: intractable nausea and vomiting Contact made with patient: No - scheduled next [facility] for next day in the Track Pt [...] appointment. Thank you SUMMARY: Pt discharged from [facility] on May 29, 2020 Admitted for: Intractable nausea and vomitting Contact made with patient: Yes Hi my name is ANDRE Graham and I am calling from the [facility] on behalf of your PCP, Marcelino [...] to speak with a social work steam plant control room operator to help give you support for any [...] I will send your request to a showroom consultant who will contact and assist you with [...] out to patient to assist with scheduling EXERCISE EQUIPMENT SPECIALIST: Patient Mira status is: Active account Thank [...] 05/31/2020 10:49 AM Signed Patient has a drafter (cad) electronic and would work on getting her back [...] Assessed Reason for Visit: Transition Of Care [8224] Cmt: milka, perlita 05/29. initi al outreach [...] 05/31/20 progress on 2020-05 PROGRESS HNO ID: [id number] Normal 05-29-2020 [place] Author: Vickie Srivastava [facility] Service: Hospital Medicine Medical Author Type: Resident Center Type: Progress Notes ([id number]) Filed: 05/29/2020 2:51 PM Note Text: Attestation [...] PM: You may reach the House Medicine chemist internship currently assigned to this patient by jack mahoney their pager number on the treatment team (they will be assigned as the i ntern or resident). It is the last four digits in the phone number be ginning with ([phone]). We encourage the use of [employer] Secure Chat. SUBJECTIVE HPI: 39 year old F PMHx idiopathic pancreatitis, hepatic cys ts presenting to the ED with intractable nausea and vomiting as well as RU Q abdominal pain for the past 3 days. States that she called her GI doct or Dr. Winn and he told her to come into the ED. She has a scope [facility] ed for 05/[address] Winn. Was [...] DAILY 05/25/201935 -- 05/25/201944 pneumatic compression stockings (ar,oh) VTE Prophylaxis: VTE prophylaxis appropriate GI Prophylaxis: Indicated due to chronic acid suppression th erapy as an outpatient Telemetry: no Disposition: Home Code Status: Not on file Plan of care discussed with: Provider, RN, Patient SIGNATURE: Vickie Srivastava MD PATIENT NAME: Sally shannon DATE: May 29, 2020 TIME: 1:53 PM plan of care on PLAN OF CARE HNO ID: [id number] Normal 05-29-20 [facility] Author: Felix Foster (Pharmacist) Center ([id number]) Service: Pharmacy Author Type: Pharmacist Type: Plan of Care Filed: 05/29/2020 2:49 PM Note Text: MEDICATION RECONCILIATION Patient Name:Marlen Mcgregor : 1980 Reconciliation: Yes All MARRIAGE THERAPIST medications addressed by LIP Additional comments: aggree with student note Allergies: ALLERGIES Allergen Reactions - Penicillins Rash - Cephalexin Itching - Chlorhexidine Rash Skin rash - Toradol [Ketorolac] Rash - Tramadol Rash - Asa [Salicylates] Other: See Comments ulcers - Contrast Dye [Iodin* Shortness of Breath - Ibuprofen GI Upset - Prednisone Other: See Comments makes agitated and mean Preferred Pharmacy: [facility] Current MARRIAGE THERAPIST Medications: Prior to Admission medications as of 05/29/20 0928 Medication Sig Last Dose Taking prazosin (MINIPRESS) 1 mg cap Take 1 mg by mouth daily at be [facility]. Yes hyoscyamine (LEVSIN) 0.125 mg tablet Take [...] 2:47 PM PLAN OF CARE HNO ID: [id number] [place] 05-29-20 [facility] Author: Felix Foster (Pharmacist) [place] ([id number]) Service: Pharmacy Author Type: Pharmacist Type: Plan [...] CORADO May 29, 2020 2:50 PM Pager: [phone] 05/29/2020 2:50 PM Medication List START taking [...] Your Medications These medications were sent to [facility]/pharmacy #[id number] [place] [address] - [address] [facility] [phone] [address] [address] [facility] [address] ? oxyCODONE IR 5 mg immediate release tablet PLAN OF CARE HNO ID: [id number] [place] 05-29-20 [facility] Author: Felix Foster (Pharmacist) Center ([id number]) Service: Pharmacy Author Type: Pharmacist Type: Plan of Care Filed: 05/29/2020 2:47 PM Note Text: MEDICATION HISTORY Patient Name:Marlen Mcgregor : 1980 Source of history:Patient: Reliability of source: Appears re liable, clearly identified: Medication name, Medication frequency an d Timing of last dose and Pharmacy records: [facility] #[id number] in [place], [place] [phone] Medication Nonadherence Identified: No barriers noted The above information represents the best possible medicatio n history: Yes Additional comments: Confirmed with patient and pharmacist hanna t [facility] Pharmacy - Recent changes to medications outpatient from Dr. Winn, patient did not start Sucralfate and Promethazine prior to admission and only took 1 dose of Hyoscyamine prior to admission Louij-ut-Xlrqwravu Medication List Adjustments: Medication Regimen Changes: Promethazine [...] Comments makes agitated and mean Preferred Pharmacy: [facility] #[id number] phone [phone] Current MARRIAGE THERAPIST Medications: Prior to Admission medications as of [...] stomach, 1/2 hr before meal. Maggi Hernandez (History Department Chair) May 29, 2020 9:14 AM mdrd gfr on 2020-05 GFR/1.73 sq M >60 >60mL/min/1.73m2 mL/min/{1.73_m2} Normal [place] [facility] among [facility] th System non-blacks MDRD (000 00) (S/P/Bld) [Vol rate/Area] Comment: Result Comment: If the patie nt is , multiply the result by 1.210. Performed By: #### GFR #### [address] [address] hemogram on 2020-05 Erythrocyte distribution 13.2 11.7-14.4 % Normal 05-29 [facility] width (RBC) [Ratio] System (66542) Comment: Performed By: #### LIP #### [address] [address] Hematocrit (Bld) [Volume 36.1 34.1-44.9 % Normal 05-29 AdverseEvents fraction] System (00 000) Comment: Performed By: #### LIP #### [address] [address] Hemoglobin (Bld) 11.5 11.2-15.7 g/dL Normal 05-29-2020 [facility] [employer] [Mass/Vol] System (0 0000) Comment: Performed By: #### LIP #### [address] [address] MCH (RBC) [Entitic mass] 29.0 25.6-32.2 pg Normal 05-29 [facility] (00 000) Comment: Performed By: #### LIP #### [address] [address] MCHC (RBC) [Mass/Vol] 31.9 31.6-34.8 % Normal 05-29-20 20 [facility] (57580) Comment: Performed By: #### LIP #### [facility] [address] [place], [place] [address] MCV (RBC) [Entitic vol] 90.9 79.4-94.8 fl Normal 2019 [facility] (00 000) Comment: Performed By: #### LIP #### [facility] [address] [place], [place] [address] Platelet mean volume (Bld) 10.9 9.4-12.3 fl Normal [facility] [Entitic vol] System (49688) Comment: Performed By: #### LIP #### [facility] [address] [place], [place] [address] Platelets (Bld) [#/Vol] 223 182-369 thou/cmm Normal 2019 [facility] (00 000) Comment: Performed By: #### LIP #### [facility] [address] [place], [place] [address] RBC (Bld) [#/Vol] 3.97 3.93-5.22 mil/cmm Normal 05-29-2020 [facility] (00 000) Comment: Performed By: #### LIP #### [facility] [address] [place], [place] [address] RDW SD 43.5 36.4-46.3 fl Normal 05-29-2020 [facility] (70359) Comment: Performed By: #### LIP #### [facility] [address] [place], [place] [address] WBC (Bld) [#/Vol] 5.88 3.98-10.04 thou/cmm Normal 05-29-2020 [facility] (00 000) Comment: Performed By: #### LIP #### [facility] [address] [place], [place] [address] consult on CONSULT HNO ID: [id number] Normal 05-29-2020 [facility] Author: Maria Luisa Joyner [facility] Service: Pain Management ([id number]) Author Type: Physician Type: Consults Filed: 05/29/2020 11:10 AM Note Text: SALLY MCGREGOR 39 year old PAIN CONSULTATION: Abdominal pain, history of idiopathic verdugo creatitis. 24 HOUR COMFORT MEDICATIONS: Tylenol x0 Benadryl 50 mg x 2 Phenergan 25 mg x 2 Oxycodone 10 mg x 3 Quetiapine 100 mg daily [place] prescription history Shows occasional use of opiates, [...] hepatic cysts, and no evidence of [place] pancreatitis with normal lipase, and CBC. At [...] (TYLENOL) 650 mg ORAL q 4 H [facility] Johnny Winn - prazosin (MINIPRESS) 1 [...] Approx. 3 cigarettes daily-1 pack every w ak chin Substance Use Topics - Alcohol use: Yes [...] gap [Moles/Vol] 11 9-18 mmol/L Normal 05-29-20 [facility] (85056) Comment: Performed By: #### LIP #### [facility] [address] [place], [place] [address] Calcium [Mass/Vol] 8.8 8.5-10.2 mg/dL Normal 05-29-2020 [facility] (75808) Comment: Performed By: #### LIP #### [facility] [address] [place], [place] [address] Chloride [Moles/Vol] 104 97-105 mmol/L Normal 0 [facility] (33578) Comment: Performed By: #### LIP #### [facility] [address] [place], [place] [address] CO2 Blood 23 22-30 mmol/L Normal 05-29-2020 [facility] (99203) Comment: Performed By: #### LIP #### [facility] [address] [place], [place] [address] Creatinine [Mass/Vol] 0.78 0.58-0.96 mg/dL Normal 05-29-20 [facility] (00 000) Comment: Performed By: #### LIP #### [facility] [address] [place], [place] [address] Glucose [Mass/Vol] 88 74-99 mg/dL Normal 05-29-2020 [facility] (06469) Comment: Result Comment: The English Diabetes Association (ADA) provides guidance for cutoff [...] Standards of Medical Care in Diabetes 2016; English Diabetes Association. Diabetes Care. 2016;39(Suppl 1). Performed By: #### LIP #### [facility] [address] [place], [place] [address] Potassium [Moles/Vol] 3.4 3.7-5.1 mmol/L Low 05-29-20 [facility] (73674) Comment: Performed By: #### LIP #### [facility] [address] [place] [address] Sodium [Moles/Vol] 138 136-144 mmol/L Normal 05-29-2020 [facility] (87703) Comment: Performed By: #### LIP #### [facility] [address] [place] [address] Urea nitrogen [Mass/Vol] 6 7-21 mg/dL Low 05-29 [facility] (90568) Comment: Performed By: #### LIP #### [facility] [address] [place] [address] surgical tissue exam on 2020-05-28 Surgical Tissue Test performed at [facility] Normal 05-28-2020 [facility] [address] [place] [address] ([id number]) NAME: SALLY MCGREGOR REQUESTING: JOHNNY WINN MD [...] #### LIP #### [facility] [address] [place] [address] pt ed on 2020-05-28 PT ED HNO ID: [id number] Normal 05-28-2020 [facility] Author: Flakita Ragland [facility] ([id number]) Service: Nursing Author Type: Registered Nurse Type: [...] Flakita Ragland RN PT ED HNO ID: [id number] [place] 05-28-2020 [facility] Author: Flakita Ragland RN [place] ([id number]) Service: Nursing Author Type: Registered Nurse Type: [...] RN progress on 2020-05 PROGRESS HNO ID: [id number] [place] 05-28-2020 [place] Author: Vickie Beck [facility] Service: Hospital Medicine Medical Author Type: Resident Center Type: Progress Notes ([id number]) Filed: 05/28/2020 1:52 PM Note Text: Attestation [...] PM: You may reach the House Medicine chemist internship currently assigned to this patient by findin g their pager number on the treatment team (they will be assigned as the i ntern or resident). It is the last four digits in the phone number be ginning with ([phone]). We encourage the use of Fooooo Secure Chat. SUBJECTIVE HPI: 39 year old F PMHx idiopathic pancreatitis, hepatic cys ts presenting to the ED with intractable nausea and vomiting as well as RU Q abdominal pain for the past 3 days. States that she called her GI doct or Dr. Winn and he told her to come into the ED. She has a [facility] ed for 05/[address] Winn. Was [...] operative no on OPERATIVE NO HNO ID: [id number] Normal 05-28-20 [facility] Author: [facility] Service: Gastroenterology ([id number]) Author Type: Physician Type: Operative Report Filed: 05/28/2020 1:07 PM Note Text: OPERATIVE/PROCEDURE REPORT LOG ID: [id number] Surgery/Procedure Date: 05/28/2020 Incision/Procedure Start Time: 12:32 PM Incision Close/Procedure End Time: 1:00 PM Surgeon(s)/Proceduralist(s) and Staff Command And Control Officer(s): Surgeon(s) and Role: * [facility] - Primary No Additional Staff Procedure(s): [...] PPI. nursing prog on NURSING HNO ID: [id number] Normal 05-28-2020 [employer] Author: Rupal (Rn) VIN [facility] General Service: [...] Erythrocyte distribution 13.2 11.7-14.4 % Normal 05-28 [email or web address] width (RBC) [Ratio] System (08591) Comment: Performed By: #### LIP #### [facility] [address] [place], [place] [address] Hematocrit (Bld) [Volume 32.2 34.1-44.9 % Low 05-28 [email or web address]] System (00 000) Comment: Performed By: #### LIP #### [facility] [address] [place], [place] [address] Hemoglobin (Bld) [Mass/Vol] 10.1 11.2-15.7 g/dL Low [facility] (00 000) Comment: Performed By: #### LIP #### [facility] [address] [place], [place] [address] MCH (RBC) [Entitic mass] 28.5 25.6-32.2 pg Normal 05-28 [place] [facility] (00 000) Comment: Performed By: #### LIP #### [facility] [address] [place], [place] [address] MCHC (RBC) [Mass/Vol] 31.4 31.6-34.8 % Low 05-28-20 20 [facility] (37644) Comment: Performed By: #### LIP #### [facility] [address] [place], [place] [address] MCV (RBC) [Entitic vol] 90.7 79.4-94.8 fl Normal 2019 [facility] (00 000) Comment: Performed By: #### LIP #### [facility] [address] [place] [address] Platelet mean volume (Bld) 10.7 9.4-12.3 fl Normal [facility] [Entitic vol] System (81090) Comment: Performed By: #### LIP #### [facility] [address] [place] [id number] Platelets (Bld) [#/Vol] 186 182-369 thou/cmm Normal 2019 [facility] (00 000) Comment: Performed By: #### LIP #### [facility] [address] [place] [address] RBC (Bld) [#/Vol] 3.55 3.93-5.22 mil/cmm Low 05-28-2020 [facility] (97648) Comment: Performed By: #### LIP #### [facility] [address] [place] [address] RDW SD 43.3 36.4-46.3 fl Normal 05-28-2020 [facility] (60062) Comment: Performed By: #### LIP #### [facility] [address] [place] [id number] WBC (Bld) [#/Vol] 6.36 3.98-10.04 thou/cmm Normal 05-28-2020 [facility] (00 000) Comment: Performed By: #### LIP #### [facility] [address] [place] [address] consult on CONSULT HNO ID: [id number] Normal 05-28-2020 [facility] Author: Ramone Albarado [facility] Service: Pain Management ([id number]) Author Type: Physician Type: Consults Filed: 05/28/2020 9:09 AM Note Text: SALLY MCGREGOR 39 year old PAIN CONSULTATION: Abdominal pain, history of idiopathic verdugo creatitis. 24 HOUR COMFORT MEDICATIONS: Oxycodone 10 mg x 3 Quetiapine 100 mg daily [place] prescription history Shows occasional use of opiates, [...] hepatic cysts, and no evidence of [place] pancreatitis with normal lipase, and CBC. At this time, not experiencing any fever, chills, sweats, he matemesis, hematochezia, additional GI, , constitutional, pulmonary, or other symptoms. Current Facility-Administered Medications Medication Dose Route Frequency Provider Last Rate Last Dose - oxyCODONE IR 10 mg tab(s) (ROXICODONE) 10 mg ORAL q 6 H [facility] N Maggi (Res) MD Mark 10 mg [...] (TYLENOL) 650 mg ORAL q 4 H NH N Eduar (Res) Metry - hyoscyamine (LEVSIN) [...] Approx. 3 cigarettes daily-1 pack every w ak chin Substance Use Topics - Alcohol use: Yes [...] gap [Moles/Vol] 8 9-18 mmol/L Low 05-28-20 [facility] (18094) Comment: Performed By: #### LIP #### [facility] [address] [place] [address] Calcium [Mass/Vol] 7.2 8.5-10.2 mg/dL Low 05-28-2020 [facility] (94034) Comment: Performed By: #### LIP #### [facility] [address] [place], [place] [address] Chloride [Moles/Vol] 111 97-105 mmol/L High 0 [facility] (67989) Comment: Performed By: #### LIP #### [facility] [address] [place], [place] [address] CO2 Blood 22 22-30 mmol/L Normal 05-28-2020 [facility] (79068) Comment: Performed By: #### LIP #### [facility] [address] [place], [place] [address] Creatinine [Mass/Vol] 0.69 0.58-0.96 mg/dL Normal 05-28-20 [facility] (00 000) Comment: Performed By: #### LIP #### [facility] [address] [place], [place] [address] Glucose [Mass/Vol] 73 74-99 mg/dL Low 05-28-2020 [facility] (38892) Comment: Result Comment: The English Diabetes Association (ADA) provides guidance for cutoff [...] Standards of Medical Care in Diabetes 2016; English Diabetes Association. Diabetes Care. 2016;39(Suppl 1). Performed By: #### LIP #### [facility] [address] [place], [place] [address] Potassium [Moles/Vol] 2.9 3.7-5.1 mmol/L Low 05-28-20 [facility] (27793) Comment: Performed By: #### LIP #### [facility] [address] [place], [place] [address] Sodium [Moles/Vol] 141 136-144 mmol/L Normal 05-28-2020 [facility] (14893) Comment: Performed By: #### LIP #### [facility] [address] [place], [place] [address] Urea nitrogen [Mass/Vol] 5 7-21 mg/dL Low 05-28 [facility] (33992) Comment: Performed By: #### LIP #### [facility] [address] [place], [place] [address] anes preop on 05-28 ANES PREOP HNO ID: [id number] Normal 05-28-2020 [facility] Author: Delon [facility] Service: Anesthesiology ([id number]) Author Type: Physician Type: Anesthesia PreOp Filed: [...] Benign liver cyst 05/24/2010 CT scan at [facility] 11/2009 and 04/2010 showe 4 mm increase in size . No pain. No elevated LFTs on 03/11/2010. - Calculus of kidney 05/17/[address] Nicolas: Hospitalized age 20, and again later -- no procedures so far ([facility], [facility], 1995 [facility]) - Cancer (HCC) - Diverticulosis [...] removed - TOTAL ABDOM HYSTERECTOMY 08/31/06 Hysterectomy, [facility] H[facility] Problem Relation Age of Onset [...] Approx. 3 cigarettes daily-1 pack every w ak chin Substance Use Topics - Alcohol use: Yes [...] May 28, 2020 TIME: 12:15 PM CSN: [id number] anes post on 0 -14 ANES POST HNO ID: [id number] Normal 05-28-2020 [facility] Author: Delon Duenas [place] ([id number]) Service: Anesthesiology Author Type: Physician Type: Anesthesia [...] 1001 progress on 2020-05 PROGRESS HNO ID: [id number] [place] 05-27-2020 [place] Author: Vickie Srivastava General Service: Hospital Medicine Medical Author Type: Resident Center Type: Progress Notes ([id number]) Filed: 05/27/2020 4:19 PM Note Text: Attestation [...] PM: You may reach the House Medicine chemist internship currently assigned to this patient by findin g their pager number on the treatment team (they will be assigned as the i ntern or resident). It is the last four digits in the phone number be ginning with ([phone]). We encourage the use of [employer] Secure Chat. SUBJECTIVE HPI: 39 year old F PMHx idiopathic pancreatitis, hepatic cys ts presenting to the ED with intractable nausea and vomiting as well as RU Q abdominal pain for the past 3 days. States that she called her GI doct or Dr. Winn and he told her to come into the ED. She has a scope [facility] ed for 05/[address] Winn. Was [...] DAILY 05/25/201935 -- 05/25/201944 pneumatic compression stockings (ar,va) VTE Prophylaxis: VTE prophylaxis appropriate GI Prophylaxis: Indicated due to chronic acid suppression th erapy as an outpatient Telemetry: no Disposition: Home Code Status: Not on file Plan of care discussed with: Provider, RN, Patient SIGNATURE: Vickie Srivastava MD PATIENT NAME: Sally shannon DATE: May 27, 2020 TIME: 1:53 PM plan of care on PLAN OF CARE HNO ID: [id number] Normal 05-27-20 [facility] Author: Joe Romero) [facility] Service: Gastroenterology ([id number]) Author Type: Physician Staff Command And Control Officer Type: Plan of Care Filed: 05/27/2020 1:17 [...] (TYLENOL) 650 mg ORAL q 4 H NH N - oxyCODONE IR 10 mg tab(s) (ROXICODONE) 10 mg ORAL q 6 H NH N Objective PHYSICAL EXAM: VITALS:BP 119/74 Pulse [...] 27, 2020 TIME: 1:15 PM PAGER/CONTACT #: [employer] Coordinator Pager hemogram on 2020-05 Erythrocyte distribution 13.3 11.7-14.4 % Normal 05-27 [facility] width (RBC) [Ratio] System (51967) Comment: Performed By: #### LIP #### [facility] [address] [place], [place] [address] Hematocrit (Bld) [Volume 35.9 34.1-44.9 % Normal 05-27 [facility] fraction] System (00 000) Comment: Performed By: #### LIP #### [facility] [address] [place], [place] [address] Hemoglobin (Bld) 11.3 11.2-15.7 g/dL Normal 05-27-2020 [employer] [facility] [Mass/Vol] System (0 0000) Comment: Performed By: #### LIP #### [facility] [address] [place], [place] [address] MCH (RBC) [Entitic mass] 29.1 25.6-32.2 pg Normal 05-27 [facility] (00 000) Comment: Performed By: #### LIP #### [facility] [address] [place], [place] [address] MCHC (RBC) [Mass/Vol] 31.5 31.6-34.8 % Low 05-27-20 20 [facility] (33298) Comment: Performed By: #### LIP #### [address] [address] MCV (RBC) [Entitic vol] 92.5 79.4-94.8 fl Normal 2019 [facility] (00 000) Comment: Performed By: #### LIP #### [facility] [address] [place], [place] [address] Platelet mean volume (Bld) 10.6 9.4-12.3 fl Normal [facility] [Entitic vol] System (88775) Comment: Performed By: #### LIP #### [facility] [address] [place], [place] [address] Platelets (Bld) [#/Vol] 197 182-369 thou/cmm Normal 2019 [facility] (00 000) Comment: Performed By: #### LIP #### [facility] [address] [place] [id number] RBC (Bld) [#/Vol] 3.88 3.93-5.22 mil/cmm Low 05-27-2020 [facility] (10676) Comment: Performed By: #### LIP #### [facility] [address] [place] [address] RDW SD 44.6 36.4-46.3 fl Normal 05-27-2020 [facility] (51214) Comment: Performed By: #### LIP #### [facility] [address] [place], [place] [address] WBC (Bld) [#/Vol] 6.15 3.98-10.04 thou/cmm Normal 05-27-2020 [facility] (00 000) Comment: Performed By: #### LIP #### [facility] [address] [place] [id number] basic metabolic panel on 2020-05-27 Anion gap [Moles/Vol] 10 9-18 mmol/L Normal 05-27-20 [facility] (75235) Comment: Performed By: #### LIP #### [facility] [address] [place] [id number] Calcium [Mass/Vol] 8.6 8.5-10.2 mg/dL Normal 05-27-2020 [facility] (75637) Comment: Performed By: #### LIP #### [facility] [address] [place] [id number] Chloride [Moles/Vol] 106 97-105 mmol/L High 0 [facility] (12788) Comment: Performed By: #### LIP #### [facility] [address] [place], [place] [address] CO2 Blood 24 22-30 mmol/L Normal 05-27-2020 [facility] (68767) Comment: Performed By: #### LIP #### [facility] [address] [place], [place] [address] Creatinine [Mass/Vol] 0.87 0.58-0.96 mg/dL Normal 05-27-20 [facility] (00 000) Comment: Performed By: #### LIP #### [facility] [address] [place], [place] [address] Glucose [Mass/Vol] 82 74-99 mg/dL Normal 05-27-2020 [facility] (30922) Comment: Result Comment: The English Diabetes Association (ADA) provides guidance for cutoff [...] Standards of Medical Care in Diabetes 2016; English Diabetes Association. Diabetes Care. 2016;39(Suppl 1). Performed By: #### LIP #### [facility] [address] [place], [place] [address] Potassium [Moles/Vol] 3.5 3.7-5.1 mmol/L Low 05-27-20 20 [facility] (17132) Comment: Performed By: #### LIP #### [facility] [address] [place], [place] [address] Sodium [Moles/Vol] 140 136-144 mmol/L Normal 05-27-2020 [facility] (93157) Comment: Performed By: #### LIP #### [facility] [address] [place], [place] [address] Urea nitrogen [Mass/Vol] 7 7-21 mg/dL Normal 05-27 [facility] (07005) Comment: Performed By: #### LIP #### [facility] [address] [place], [place] [address] progress on 2020-05 PROGRESS HNO ID: [id number] Normal 05-26-2020 [place] Author: Vickie Srivastava [facility] Service: Hospital Medicine Medical Author Type: Resident Center Type: Progress Notes ([id number]) Filed: 05/26/2020 2:11 PM Note Text: Attestation signed by Oh Arreaga at 05/26/2020 2:23 PM Attending Note I personally saw and examined the patient on 05/26/20. I rev iewed the resident's note. I agree with the resident's assessment and plan unless otherwise noted. Signature: Oh Arreaga DO Date: 05/26/2020 Time: 2:23 PM Pager: [phone] HOUSE MEDICINE SERVICE PROGRESS NOTE SERVICE DATE: May 26, 2020 SERVICE TIME: 1:53 PM NIGHT AND WEEKEND COVERAGE: From 6 AM to 5 PM: You may reach the House Medicine chemist internship currently assigned to this patient by findin g their pager number on the treatment team (they will be assigned as the i ntern or resident). It is the last four digits in the phone number be ginning with ([phone]). We encourage the use of [employer] Secure Chat. SUBJECTIVE HPI: 39 year old F PMHx idiopathic pancreatitis, hepatic cys ts presenting to the ED with intractable nausea and vomiting as well as RU Q abdominal pain for the past 3 days. States that she called her GI doct or Dr. Winn and he told her to come into the ED. She has a scope [facility] ed for 05/[address] Winn. Was [...] 05/25/20 193 -- 05/25/[address]44 pneumatic compression stockings (ar,va) VTE Prophylaxis: VTE prophylaxis appropriate GI Prophylaxis: Indicated due to chronic acid suppression th erapy as an outpatient Telemetry: no Disposition: Home Code Status: Not on file Plan of care discussed with: Provider, RN, Patient SIGNATURE: Vickie Srivastava MD PATIENT NAME: Sally shannon DATE: May 26, 2020 TIME: 1:53 PM hemogram on 2020-05 Erythrocyte distribution 13.3 11.7-14.4 % Normal 05-26 [place] [facility] width (RBC) [Ratio] System (31873) Comment: Performed By: #### CBC1 #### [address] [address] Hematocrit (Bld) [Volume 33.7 34.1-44.9 % Low 05-26 [place] [facility] fraction] System (00 000) Comment: Performed By: #### CBC1 #### [address] [address] Hemoglobin (Bld) [Mass/Vol] 10.8 11.2-15.7 g/dL Low [facility] (00 000) Comment: Performed By: #### CBC1 #### [facility] [address] [place], [place] [address] MCH (RBC) [Entitic mass] 29.3 25.6-32.2 pg Normal 05-26 [facility] (00 000) Comment: Performed By: #### CBC1 #### [facility] [address] [place], [place] [address] MCHC (RBC) [Mass/Vol] 32.0 31.6-34.8 % Normal 05-26-20 20 [facility] (92585) Comment: Performed By: #### CBC1 #### [facility] [address] [place], [place] [address] MCV (RBC) [Entitic vol] 91.3 79.4-94.8 fl Normal 2019 [facility] (00 000) Comment: Performed By: #### CBC1 #### [facility] [address] [place], [place] [address] Platelet mean volume (Bld) 10.8 9.4-12.3 fl Normal [facility] [Entitic vol] System (29824) Comment: Performed By: #### CBC1 #### [facility] [address] [place], [place] [address] Platelets (Bld) [#/Vol] 226 182-369 thou/cmm Normal 2019 [facility] (00 000) Comment: Performed By: #### CBC1 #### [facility] [address] [place], [place] [address] RBC (Bld) [#/Vol] 3.69 3.93-5.22 mil/cmm Low 05-26-2020 [facility] (84711) Comment: Performed By: #### CBC1 #### [facility] [address] [place], [place] [address] RDW SD 44.3 36.4-46.3 fl Normal 05-26-2020 [facility] (24264) Comment: Performed By: #### CBC1 #### [facility] [address] [place], [place] [address] WBC (Bld) [#/Vol] 9.78 3.98-10.04 thou/cmm Normal 05-26-2020 [facility] (00 000) Comment: Performed By: #### CBC1 #### [facility] [address] [place], [place] [address] coronavirus 2019 on 2020-05-26 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 This test was developed and its performance characteristics determined by [facility] Laboratory Medicine [employer]. This test has bee n authorized by [...] issued on November 12, 2019. Performing Laboratory: [facility] [address] [place] [address] Performed By: #### CD19X ### # [address] [address] consult on CONSULT HNO ID: [id number] Normal 05-26-2020 [facility] Author: Joe Romero) [facility] Service: Gastroenterology ([id number]) Author Type: Physician Staff Command And Control Officer Type: Consults Filed: 05/26/2020 11:22 AM Note [...] Benign liver cyst 05/24/2010 CT scan at [facility] 11/2009 and 04/2010 showe 4 mm increase in size . No pain. No elevated LFTs on 03/11/2010. - Calculus of kidney 05/17/[address] Nicolas: Hospitalized age 20, and again later -- no procedures so far ([facility], [facility], 1995 [facility]) - Cancer (HCC) - Diverticulosis [...] removed - TOTAL ABDOM HYSTERECTOMY 08/31/06 Hysterectomy, [facility] Problem Relation Age of Onset [...] Approx. 3 cigarettes daily-1 pack every w ak chin Substance Use Topics - Alcohol use: Yes [...] (TYLENOL) 650 mg ORAL q 4 H NH N ALLERGIES Allergen Reactions - Penicillins Rash [...] 26, 2020 TIME: 11:10 AM PAGER/CONTACT #: [phone] After 3PM please use on-call paging system basic metabolic panel on 2020-05-26 Anion gap [Moles/Vol] 9 9-18 mmol/L Normal 05-26-20 20 [facility] (64206) Comment: Performed By: #### BMP #### [facility] [address] [place], [place] [address] Calcium [Mass/Vol] 9.0 8.5-10.2 mg/dL Normal 05-26-2020 [facility] (48025) Comment: Performed By: #### BMP #### [facility] [address] [place], [place] [address] Chloride [Moles/Vol] 104 97-105 mmol/L Normal 0 [facility] (82629) Comment: Performed By: #### BMP #### [facility] [address] [place], [place] [address] CO2 Blood 25 22-30 mmol/L Normal 05-26-2020 [facility] (75806) Comment: Performed By: #### BMP #### [facility] [address] [place], [place] [address] Creatinine [Mass/Vol] 0.86 0.58-0.96 mg/dL Normal 05-26-20 20 [facility] (00 000) Comment: Performed By: #### BMP #### [facility] [address] [place], [place] [address] Glucose [Mass/Vol] 87 74-99 mg/dL Normal 05-26-2020 [facility] (53225) Comment: Result Comment: The English Diabetes Association (ADA) provides guidance for cutoff [...] Standards of Medical Care in Diabetes 2016; English Diabetes Association. Diabetes Care. 2016;39(Suppl 1). Performed By: #### BMP #### [facility] [address] [place], [place] [address] Potassium [Moles/Vol] 3.5 3.7-5.1 mmol/L Low 05-26-20 20 [facility] (13170) Comment: Performed By: #### BMP #### [facility] [address] [place], [place] [address] Sodium [Moles/Vol] 138 136-144 mmol/L Normal 05-26-2020 [facility] (86981) Comment: Performed By: #### BMP #### [address] [address] Urea nitrogen [Mass/Vol] 9 7-21 mg/dL Normal 05-26 [facility] (07723) Comment: Performed By: #### BMP #### [address] [address] urine drug screen o n 2020-05-25 Urine Alcohol <11 0-11 Normal 05-25-2020 [facility] (19409) Comment: Performed By: #### UDRG3 ### # [address] [address] Urine Amphetamine NEGATIVE NEGATIVE Normal 05-25-2020 [facility] (30309) Comment: Performed By: #### UDRG3 ### # [address] [address] Urine Barbiturates NEGATIVE NEGATIVE Normal 05-25-2020 [facility] (26803) Comment: Performed By: #### UDRG3 ### # [address] [address] Urine Benzodiazepine NEGATIVE NEGATIVE Normal 0 [facility] (00 000) Comment: Performed By: #### UDRG3 ### # [address] [address] Urine Cocaine Metab NEGATIVE NEGATIVE Normal 05-25-2020 [facility] (39380) Comment: Performed By: #### UDRG3 ### # [address] [address] Urine Opiates see below NEGATIVE Abnormal 05-25-2020 [facility] (74421) Comment: Result Comment: PRESUMPTIVE POSITIVE Performed By: #### UDRG3 ### # [facility] [address] [place], [place] [address] Urine Oxycodone NEGATIVE NEGATIVE Normal 05-25-2020 [facility] (59441) Comment: Performed By: #### UDRG3 ### # [facility] [address] [place], [place] [address] Urine PCP NEGATIVE NEGATIVE Normal 05-25-2020 [facility] ([id number]) Comment: Result Comment: Test Cutoff Unit Amphetamines 1000 ng/mL Barbiturates 200 ng/mL Benzodiazepines 200 ng/mL Cannabinoids 50 ng/mL Cocaine 300 ng/mL Opiates 300 ng/mL Oxycodone 100 ng/mL Phencyclidine 25 ng/mL Reference Range: Negative at cutoff threshold Immunoassay screen only. Cellar Supervisor ss reactivity with other substances can occur [...] the same specimen through the laboratory at ([phone]) if contact ed within 48 hours of initial 1. Substance Abuse and [facility] (2012). Clini sam Drug Testing in Primary Care Technical Assistance Publica tion Series 32. Department of Health and Human Services, U SA, p.10. Performed By: #### UDRG3 ### # [facility] [address] [place], [place] [address] Urine THC NEGATIVE NEGATIVE Normal 05-25-2020 [facility] (35132) Comment: Performed By: #### UDRG3 ### # [facility] [address] [place], [place] [address] urinalysis routine on 2020-05-25 RBC LM.HPF (Urine sed) 0.0-3 0.0-5.0 Normal [facility]20 [facility] (00 000) Comment: Performed By: #### URIN2 ### # [facility] [address] [place], [place] [address] Bacteria LM.HPF (Urine sed) NONE None Normal [facility]/Area] (58407) Comment: Performed By: #### URIN2 ### # [facility] [address] [place], [place] [address] Ep Cells Urine 21.5 0.0-5.0 /hpf High 05-25-2020 [facility] (97336) Comment: Performed By: #### URIN2 ### # [facility] [address] [place], [place] [address] Hyaline Cast 0.0 0.0-1.0 /lpf Normal 05-25-2020 [facility] (05356) Comment: Performed By: #### URIN2 ### # [facility] [address] [place], [place] [address] WBC LM.HPF (Urine sed) 2.9 0.0-5.0 /hpf Normal 020 [facility] (00 000) Comment: Performed By: #### URIN2 ### # [facility] [address] [place], [place] [address] Appearance (U) CLOUDY Normal 05-25-2020 [facility] (53468) Comment: Performed By: #### URIN2 ### # [facility] [address] [place], [place] [address] Bilirubin (U) NEGATIVE Negative mg/dL Normal 05-25-2020 [facility] [Mass/Vol[facility] (0 0000) Comment: Performed By: #### URIN2 ### # [facility] [address] [place], [place] [address] Color (U) YELLOW Normal 05-25-2020 [facility] (60362) Comment: Performed By: #### URIN2 ### # [facility] [address] [place], [place] [address] Glucose Ql (U) NEGATIVE Negative Normal 05-25-2020 [facility] (75680) Comment: Performed By: #### URIN2 ### # [facility] [address] [place], [place] [address] Hemoglobin,Urine NEGATIVE Negative Normal 05-25-2020 [facility] (72567) Comment: Performed By: #### URIN2 ### # [facility] [address] [place], [place] [address] Ketone Urine NEGATIVE Negative Normal 05-25-2020 [facility] (79274) Comment: Performed By: #### URIN2 ### # [facility] [address] [place], [place] [address] Leukocytes Esterase NEGATIVE Negative Normal 05-25-2020 [facility] (42322) Comment: Performed By: #### URIN2 ### # [facility] [address] [place], [place] [address] Nitrites Urine NEGATIVE Negative Normal 05-25-2020 [facility] (16580) Comment: Performed By: #### URIN2 ### # [address] [address] pH (U) 5.5 5.0-8.0 [pH] Normal 05-25-2020 [facility] (59630) Comment: Performed By: #### URIN2 ### # [facility] [address] [place], [place] [address] Protein (U) [Mass/Vol] NEGATIVE Negative mg/dL Normal 020 [facility] (00 000) Comment: Performed By: #### URIN2 ### # [facility] [address] [place], [place] [address] Specific Pony, Ur 1.024 1.005-1.030 Normal 020 [facility] (00 000) Comment: Performed By: #### URIN2 ### # [facility] [address] [place], [place] [address] Urobilinogen,Ur 0.2 0.2-1.0 EU/dL Normal 05-25-2020 [facility] (31653) Comment: Performed By: #### URIN2 ### # [facility] [address] [place], [place] [address] nursing prog on 202 NURSING PROG HNO ID: [id number] Normal 05-25-20 [facility] Author: Eleanor (Rn) VIN Parrish [facility] ([id number]) Service: ? Author Type: Registered Nurse Type: [...] Lipase Blood 25 16-61 U/L Normal 05-25-2020 [facility] (19591) Comment: Performed By: #### LIP #### [place] [address] hosp on 2020-05-25 HOSP Patient:Sally Mcgregor Normal 05-15 [place] MRN: General Height:5' 1(1.549 m) Medical Weight:200 lb 6.4 oz (90.901 kg) Center Outpatient Medications as of 05/28/20: ([id number]) hyoscyamine (LEVSIN) 0.125 mg tablet sucralfate (CARAFATE) [...] 32.2 % 05/28/2020 44.9 34.1 Progress Notes ([facility]): Pierce Barber Ma 05/25/2020 4:24 [...] since Thursday night. Patient was seen at [place] ED on Thursday night where she was given fluids, told her labs looked fine and was discharged home. Sameer cheney follows with Dr. Winn for GI as she has a 9 cm cyst in her liver and history of pancreatitis . Patient is scheduled for endoscopy and ultrasound on . She states that Dr. Winn told her to come to [facility] ED for specific type of imaging but [...] v Family history: of suicide, attempts, or [place] 1 psychiatri c disorders requiring hospitalization v Precipitants/Stressors/Interpersonal: triggering events le ading to humiliation, shame or despair (e.g; loss of relationship, fi nancial or Health status-real or antici pated). 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 Intoxication. Family turmoil/chaos. History of Physical or sexual abuse. Social isolation. v Change in treatment: discharge from psychiatric hospital, provider or treatment change v Access to firearms 2.??? PROTECTIVE FACTORS pro tective factors, even if present, may not counteract significant acute risk v Internal: ability to cope with stress, adventist beliefs, frustration tolerance v External: responsibility to [...] Benign liver cyst 05/24/2010 CT scan at [facility] 11/2009 and 04/2010 showe 4 mm increase in size . No pain. No elevated LFTs on 03/11/2010. - Calculus of kidney 05/17/[address] Nicolas: Hospitalized age 20, a nd again later -- no procedures so far ([facility], [facility], 1995 [facility]) - Cancer (HCC) - Diverticulosis [...] removed - TOTAL ABDOM HYSTERECTOMY 08/31/06 Hysterectomy, [facility] H[facility] Problem Relation Age of Onset [...] Approx. 3 cigarettes daily-1 pack every w ak chin Substance and Sexual Activity - Alcohol use: [...] PM: You may reach the House Medicine chemist internship currently assigned to this patien t by finding their pager number on the treatment team (they will be assigned as the chemist internship or resident). It is the last four digits in the phone num alyson beginning with ([phone]). We encourage the use of [employer] Secure Chat. PCP: Marcelino Mejia MD Admitting [...] a scope scheduled for 05/[address] Wnin. Was given pain medications and 1L NS [...] Benign liver cyst 05/24/2010 CT scan at [facility] 11/2009 and 04/2010 showe 4 mm increase in size . No pain. No elevated LFTs on 03/11/2010. - Calculus of kidney 05/17/[address] Nicolas: Hospitalized age 20, a nd again later -- no procedures so far ([facility], [facility], 1995 [facility]) - Cancer (HCC) - Diverticulosis [...] Approx. 3 cigarettes daily-1 pack every w ak chin Substance Use Topics - Alcohol use: Yes [...] Benign liver cyst 05/24/2010 CT scan at [facility] 11/2009 and 04/2010 showe 4 mm increase in size . No pain. No elevated LFTs on 03/11/2010. - Calculus of kidney 05/17/[address] Nicolas: Hospitalized age 20, a nd again later -- no procedures so far ([facility], [facility], [facility]) - Cancer (HCC) - Diverticulosis [...] Approx. 3 cigarettes daily-1 pack every w ak chin Substance Use Topics - Alcohol use: Yes [...] (TYLENOL) 650 mg ORAL q 4 H NH N ALLERGIES Allergen Reactions - Penicillins Rash [...] 26, 2020 TIME: 11:10 AM PAGER/CONTACT #: [phone] After 3PM please use on-call paging system Vickie Srivastava MD 05/26/2020 2:11 PM Attested Attestation signed by Oh Arreaga at 05/26/2020 2:23 PM Attending Note I personally saw and examined the patient on 05/26/20. I rev iewed the resident's note. I agree with the resident's assessment and plan unless otherwise noted. Signature: Oh Arreaga, DO Date: 05/26/2020 Time: 2:23 PM Pager: [phone] HOUSE MEDICINE SERVICE PROGRESS NOTE SERVICE DATE: May 26, 2020 SERVICE TIME: 1:53 PM NIGHT AND WEEKEND COVERAGE: From 6 AM to 5 PM: You may reach the House Medicine chemist internship currently assigned to this patien t by finding their pager number on the treatment team (they will be assigned as the chemist internship or resident). It is the last four digits in the phone num alyson beginning with ([phone]). We encourage the use of Fooooo Secure Chat. SUBJECTIVE HPI: 39 year old [...] 05/25/20 193 -- 05/25/201944 pneumatic compression stockings (ar,oh) VTE Prophylaxis: VTE prophylaxis appropriate GI Prophylaxis: Indicated due to chronic acid suppression th erapy as an outpatient Telemetry: no Disposition: Home Code Status: Not on file Plan of care discussed with: Provider, RN, Patient SIGNATURE: Vicike Srivastava MD PATIENT NAME: Sally shannon DATE: [...] (TYLENOL) 650 mg ORAL q 4 H NH N - oxyCODONE IR 10 mg tab(s) (ROXICODONE) 10 mg ORAL q 6 H NH N Objective PHYSICAL EXAM: VITALS:BP 119/74 Pulse [...] 27, 2020 TIME: 1:15 PM PAGER/CONTACT #: Parks Recreation Coordinator Pager Vickie Srivastava MD 05/27/2020 4:19 [...] PM: You may reach the House Medicine chemist internship currently assigned to this patien t by finding their pager number on the treatment team (they will be assigned as the chemist internship or resident). It is the last four digits in the phone num alyson beginning with ([phone]). We encourage the use of [employer]ooo Secure Chat. SUBJECTIVE HPI: 39 year old [...] discussed with: Provider, RN, Patient SIGNATURE: Vickie Sriavstava MD PATIENT NAME: Sally shannon DATE: May 27, 2020 TIME: 1:53 PM Rupal Benitez RN, RN 05/28/2020 5:25 AM Signed Nursing Progress Note Patient Name: Sally Mcgregor Patient Location: [id number] Attempted to draw AM labs. Was unsuccessful x 2 attempts. This note was completed by: VIN Conley MD 05/28/2020 8:57 AM Incomplete HOUSE MEDICINE SERVICE PROGRESS NOTE SERVICE DATE: May 28, 2020 SERVICE TIME: 1:53 PM NIGHT AND WEEKEND COVERAGE: From 6 AM to 5 PM: You may reach the House Medicine chemist internship currently assigned to this patien t by finding their pager number on the treatment team (they will be assigned as the chemist internship or resident). It is the last four digits in the phone num alyson beginning with ([phone]). We encourage the use of [employer]ooo Secure Chat. SUBJECTIVE HPI: 39 year old [...] delete will not show in completed note) :[id number] } Intractable nausea and vomiting Intractable nausea [...] delete will not show in completed note) :[id number] } Medication and Non-Pharmacologic VTE Prophylaxis/Anticoagula nts Anticoagulant AND Antiplatelet Medications (From admission, onward) Start Dose Route Frequency Ordered Stop 05/25/201999 enoxaparin 40 mg injection (LOVENOX) (Me dical Risk Categories) 40 mg SUBCUTANEOUS DAILY 05/25/201935 -- 05/25/201944 pneumatic compression stockings (ar,oh) VTE Prophylaxis: VTE prophylaxis appropriate GI Prophylaxis: [...] mg x 3 Quetiapine 100 mg daily [place] prescription history Shows occasional use of opiates, [...] (ROXICODONE) 10 mg ORAL q 6 H NH N Maggi (Kiran) MD Mark 10 mg [...] Approx. 3 cigarettes daily-1 pack every w ak chin Substance Use Topics - Alcohol use: Yes [...] Benign liver cyst 05/24/2010 CT scan at [facility] 11/2009 and 04/2010 showe 4 mm increase in size . No pain. No elevated LFTs on 03/11/2010. - Calculus of kidney 05/17/[address] Nicolas: Hospitalized age 20, a nd again later -- no procedures so far ([facility], [facility], [facility]) - Cancer (HCC) - Diverticulosis [...] Approx. 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 It is the last four digits in the phone number be ginning with ([phone]). We encourage the use of Epic Secure [...] Benign liver cyst 05/24/2010 CT scan at [facility] 11/2009 and 04/2010 showe 4 mm increase in size . No pain. No elevated LFTs on 03/11/2010. - Calculus of kidney 05/17/[address] Nicolas: Hospitalized age 20, and again later -- no procedures so far ([facility], [facility], [facility]) - Cancer (HCC) - Diverticulosis [...] Approx. 3 cigarettes daily-1 pack every w ak chin Substance Use Topics - Alcohol use: Yes [...] care and symptomatic relief Will consult Dr. Wnin of GI for possible inpatient endosco py [...] Immature Grans 0.09 0.00-0.05 thou/cmm High 05-25-2020 [facility] (00 000) Comment: Performed By: #### CBCD1 ### # [place] [address] Abs Neut (ANC) 3.14 1.56-6.13 thou/cmm Normal 05-25-2020 [facility] (10146) Comment: Performed By: #### CBCD1 ### # [facility] [address] [place], [place] [address] Abs. Baso 0.06 0.01-0.08 thou/cmm Normal 05-25-2020 [facility] (24095) Comment: Result Comment: Smear scanne d; tech agrees with automated differential Performed By: #### CBCD1 ### # [facility] [address] [place], [place] [address] Abs. [place] 0.50 0.27-0.70 thou/cmm Normal 05-25-2020 [facility] (74340) Comment: Performed By: #### CBCD1 ### # [facility] [address] [place], [place] [address] Basophils/100 WBC (Bld) 0.7 % Normal 2019 [facility] (74890) Comment: Performed By: #### CBCD1 ### # [facility] [address] [place], [place] [address] Eosinophils (Bld) 0.30 0.00-0.31 thou/cmm Normal 05-25-2020 [facility] [#/Vol] [facility] (61726) Comment: Performed By: #### CBCD1 ### # [facility] [address] [place], [place] [address] Eosinophils/100 WBC (Bld) 3.6 % Normal 05-15 [facility] (90028) Comment: Performed By: #### CBCD1 ### # [facility] [address] [place], [place] [address] Immature Grans 1.10 % Normal 05-25-2020 [facility] (95113) Comment: Performed By: #### CBCD1 ### # [facility] [address] [place], [place] [address] Lymphocytes (Bld) [#/Vol] 4.34 1.18-3.74 thou/cmm High 05-15 [facility] (00 000) Comment: Performed By: #### CBCD1 ### # [facility] [address] [place], [place] [address] Lymphocytes/100 WBC (Bld) 51.5 % Normal 05-15 [facility] (97882) Comment: Performed By: #### CBCD1 ### # [facility] [address] [place], [place] [address] Monocytes/100 WBC (Bld) 5.9 % Normal 2019 [facility] (67210) Comment: Performed By: #### CBCD1 ### # [facility] [address] [place], [place] [address] Seg Neutrophil 37.2 % Normal 05-25-2020 [facility] (87667) Comment: Performed By: #### CBCD1 ### # [facility] [address] [place], [place] [address] Erythrocyte distribution 13.7 11.7-14.4 % Normal 05-25 [facility] width (RBC) [Ratio] System (55038) Comment: Performed By: #### CBCD1 ### # [facility] [address] [place], [place] [address] Hematocrit (Bld) [Volume 39.7 34.1-44.9 % Normal 05-25 [facility] fraction] System (00 000) Comment: Performed By: #### CBCD1 ### # [facility] [address] [place], [place] [address] Hemoglobin (Bld) 12.1 11.2-15.7 g/dL Normal 05-25-2020 [facility] [Mass/Vol] System (0 0000) Comment: Performed By: #### CBCD1 ### # [facility] [address] [place], [place] [address] MCH (RBC) [Entitic mass] 28.2 25.6-32.2 pg Normal 05-25 [facility] (00 000) Comment: Performed By: #### CBCD1 ### # [facility] [address] [place], [place] [address] MCHC (RBC) [Mass/Vol] 30.5 31.6-34.8 % Low 05-25-20 20 [facility] (93009) Comment: Performed By: #### CBCD1 ### # [address] [address] MCV (RBC) [Entitic vol] 92.5 79.4-94.8 fl Normal 2019 [facility] (00 000) Comment: Performed By: #### CBCD1 ### # [facility] [address] [place], [place] [address] Platelet mean volume (Bld) 11.0 9.4-12.3 fl Normal [facility] [Entitic vol] [facility] (56568) Comment: Performed By: #### CBCD1 ### # [facility] [address] [place], [place] [address] Platelets (Bld) [#/Vol] 254 182-369 thou/cmm Normal 2019 [facility] (00 000) Comment: Performed By: #### CBCD1 ### # [facility] [address] [place], [place] [address] RBC (Bld) [#/Vol] 4.29 3.93-5.22 mil/cmm Normal 05-25-2020 [facility] (00 000) Comment: Performed By: #### CBCD1 ### # [facility] [address] [place], [place] [address] RDW SD 46.5 36.4-46.3 fl High 05-25-2020 [facility] (06429) Comment: Performed By: #### CBCD1 ### # [facility] [address] [place], [place] [address] WBC (Bld) [#/Vol] 8.43 3.98-10.04 thou/cmm Normal 05-25-2020 [facility] (00 000) Comment: Performed By: #### CBCD1 ### # [facility] [address] [place], [place] [address] ed prov note on ED PROV NOTE HNO ID: [id number] Normal 05-25-20 [facility] Author: Johnnie Long MD Center ([id number]) Service: Emergency Medicine Author Type: Physician Type: [...] 05/26/20 0014 ED PROV NOTE HNO ID: [id number] Normal 05-25-20 [facility] Author: Johnnie Long MD [facility] ([id number]) Service: Emergency Medicine Author Type: Physician Type: [...] back since night. Patient was seen at [place] ED on Thursday night where sh shiva was given fluids, told her labs looked fine and was discharged home. Skyler maciel follows with Dr. Winn for GI as she has a 9 cm cyst in her liver and history of pancreatitis. Patient is scheduled for endoscopy and ultrasound on Thursday. She states that Dr. Winn told her t o come to [facility] ED for specific type of [...] v Family history: of suicide, attempts, or [place] 1 psychiatri c disorders requiring hospitalization v Precipitants/Stressors/Interpersonal: triggering events le ading to humiliation, shame or despair (e.g; loss of relationship, fi nancial or Health status-real or anticipated). 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 Intoxication. Family turmoil/chaos. Histor y of Physical or sexual abuse. Social isolation. v Change in treatment: discharge from psychiatric hospital, provider or treatment change v Access to firearms 2.??? PROTECTIVE FACTORS protective factors, even if present , may not counteract significant acute risk v Internal: ability to cope with stress, adventist beliefs, frustration tolerance v External: responsibility to [...] Benign liver cyst 05/24/2010 CT scan at [facility] 11/2009 and 04/2010 showe 4 mm increase in size . No pain. No elevated LFTs on 03/11/2010. - Calculus of kidney 05/17/[address] Nicolas: Hospitalized age 20, and again later -- no procedures so far ([facility], [facility], [facility]) - Cancer (HCC) - Diverticulosis [...] Approx. 3 cigarettes daily-1 pack every w ak chin Substance and Sexual Activity - Alcohol use: [...] ed note on ED NOTE HNO ID: [id number] Normal 05-25-2020 [facility] Author: Katharine Gonzalez RN [facility] ([id number]) Service: Emergency Medicine Author Type: Registered Nurse Type: ED Notes Filed: 05/25/2020 6:31 PM Note Text: RN unavailable for report at 1830 ED NOTE HNO ID: [id number] Normal 05-25-2020 [facility] Author: Katharine Gonzalez RN [facility] ([id number]) Service: Emergency Medicine Author Type: Registered Nurse Type: ED Notes Filed: 05/25/2020 5:58 PM Note Text: Dr. Mukherjee notified pt asking for something for pain. ED NOTE HNO ID: [id number] Normal 05-25-2020 [facility] Author: Katharine Gonzalez RN [facility] ([id number]) Service: Emergency Medicine Author Type: Registered Nurse Type: ED Notes Filed: 05/25/2020 4:00 PM Note Text: Covid swab obtained and sent. ED NOTE HNO ID: [id number] Normal 05-25-2020 [facility] Author: Katharine Gonzalez RN [facility] ([id number]) Service: Emergency Medicine Author Type: Registered Nurse Type: ED Notes Filed: 05/25/2020 3:08 PM Note Text: Pt to CT by cart. ED NOTE HNO ID: [id number] Normal 05-25-2020 [facility] Author: Katharine Gonzalez RN [facility] ([id number]) Service: Emergency Medicine Author Type: Registered Nurse Type: ED Notes Filed: 05/25/2020 11:55 AM Note Text: Pt complains of heat flash Temperature adjusted. Resp unla bored. ED NOTE HNO ID: [id number] Normal 05-25-2020 [facility] Author: Katharine Gonzalez RN [facility] ([id number]) Service: Emergency Medicine Author Type: Registered Nurse Type: ED Notes Filed: 05/25/2020 10:42 AM Note Text: Pt complains of itching after Dilaudid. No hives or SOB note dAzul Pierre notified and no orders received. Pt given ice. ED NOTE HNO ID: [id number] Normal 05-25-2020 [facility] Author: Katharine Gonzalez RN [facility] ([id number]) Service: Emergency Medicine Author Type: Registered Nurse Type: ED Notes Filed: 05/25/2020 7:15 AM Note Text: Dr. Miranda notified pt needs SAFE-T form completed. ct abd/pel w ivcon on 2020-05-25 CT ABD/PEL W Final Report Normal 05-25-2020 [facility] IVCON DATE OF EXAM: May 25 2020 3:15PM [facility] 0530 - CT ABD/PEL W IVCON / ([id number]) PROCEDURE REASON: Nausea, vomiting Physician Interpretation EXAMINATION: [...] obe suggestive of small areas of atelectasis. Slat Basket Maker Machine (topogram) images: IMPRESSION: 1. No acute intra-abdominal/pelvic abnormalities are identif ied. 2. Bilateral nephrolithiasis. No hydronephrosis is identifie d. 3. Multiple hepatic cysts measuring up to 9.5 cm. 4. Findings consistent with fatty infiltration of liver. Cigar Packer And Sorter: PSCAudrey Transcribe Date/Time: May 25 2020 3:16P Dictated by : ALICE ALCARAZ MD This examination was interpreted and the report reviewed and electronically signed by: ALICE ALCARAZ MD on May 25 2020 3:27PM EST comprehensive metabolic panel on 2020-05-25 Albumin [Mass/Vol] 4.8 3.9-4.9 g/dL Normal 05-25-2020 [facility] (49433) Comment: Performed By: #### CMP #### [facility] [address] [place], [place] [address] ALP [Catalytic activity/Vol] 98 34-123 U/L Normal 0 05-25-2020 [facility] (00 000) Comment: Performed By: #### CMP #### [facility] [address] [place], [place] [address] ALT [Catalytic activity/Vol] 12 7-38 U/L Normal 0 05-25-2020 [facility] (00 000) Comment: Performed By: #### CMP #### [facility] [address] [place], [place] [address] Anion gap [Moles/Vol] 11 9-18 mmol/L Normal 05-25-20 [facility] (06008) Comment: Performed By: #### CMP #### [facility] [address] [place], [place] [address] AST [Catalytic activity/Vol] 14 13-35 U/L Normal 0 05-25-2020 [facility] (00 000) Comment: Performed By: #### CMP #### [facility] [address] [place], [place] [address] Bilirubin [Mass/Vol] 0.4 0.2-1.3 mg/dL Normal 0 [facility] (35566) Comment: Performed By: #### CMP #### [facility] [address] [place], [place] [address] Calcium [Mass/Vol] 9.7 8.5-10.2 mg/dL Normal 05-25-2020 [facility] (40335) Comment: Performed By: #### CMP #### [facility] [address] [place], [place] [address] Chloride [Moles/Vol] 104 97-105 mmol/L Normal 0 [facility] (44363) Comment: Performed By: #### CMP #### [facility] [address] [place], [place] [address] CO2 Blood 24 22-30 mmol/L Normal 05-25-2020 [facility] (67300) Comment: Performed By: #### CMP #### [facility] [address] [place], [place] [address] Creatinine [Mass/Vol] 0.95 0.58-0.96 mg/dL Normal 05-25-20 [facility] (00 000) Comment: Performed By: #### CMP #### [facility] [address] [place], [place] [address] Glucose [Mass/Vol] 95 74-99 mg/dL Normal 05-25-2020 [facility] (08602) Comment: Result Comment: The English Diabetes Association (ADA) provides guidance for cutoff [...] Standards of Medical Care in Diabetes 2016; English Diabetes Association. Diabetes Care. 2016;39(Suppl 1). Performed By: #### CMP #### [facility] [address] [place], [place] [address] Potassium [Moles/Vol] 3.6 3.7-5.1 mmol/L Low 05-25-20 [facility] (96785) Comment: Performed By: #### CMP #### [facility] [address] [place], [place] [address] Protein [Mass/Vol] 8.0 6.3-8.0 g/dL Normal 05-25-2020 [facility] (98223) Comment: Performed By: #### CMP #### [facility] [address] [place], [place] [address] Sodium [Moles/Vol] 139 136-144 mmol/L Normal 05-25-2020 [facility] (70658) Comment: Performed By: #### CMP #### [facility] [address] [place], [place] [address] Urea nitrogen [Mass/Vol] 11 7-21 mg/dL Normal 05-25 [facility] (19588) Comment: Performed By: #### CMP #### [facility] [address] [place], [place] [address] cnpn on 2020-05-25 CNPN Telephone (GSTNOR) Normal 05-25-2020 [place] [facility] SALLY MCGREGOR ([id number]) 1980 [facility] Time Provider Department ([id number]) 05/25/20 JOHNNY WINN GSTNOR During your visit [...] 05/25/20 progress on 2020-05 PROGRESS HNO ID: [id number] Normal 05-24-2020 [facility] Author: Johnny Winn [place] ([id number]) Service: ? Author Type: Physician Type: Progress [...] virtual telemedicine Visit [facility]-person visit because of [...] go to the ED. Patient went to [place] ED and mentions 'nothing was done. T [...] Benign liver cyst 05/24/2010 CT scan at [facility] 11/2009 and 04/2010 showe 4 mm increase in size . No pain. No elevated LFTs on 03/11/2010. - Calculus of kidney 05/17/[address] Nicolas: Hospitalized age 20, and again later -- no procedures so far ([facility], most, 1995 [facility]) - Cancer (HCC) - Diverticulosis [...] Approx. 3 cigarettes daily-1 pack every w ak chin Substance Use Topics - Alcohol use: Yes [...] the ED yesterday - she went to [place] ED and was told that pancreas levels [...] for nausea. Advised to go to the [facility] ED if no improvement in s ymptoms. During this patient visit I have spent approximately 15 luna los in counseling regarding interpretation, education and coordinat ion of care. Johnny Winn MD 3:22 PM progress on 2020-05 PROGRESS HNO ID: [id number] Normal 05-23-2020 [facility] Author: Johnny Winn [place] ([id number]) Service: Gastroenterology Author Type: Physician Type: Progress Notes Filed: 05/24/2020 8:09 AM Note Text: Returned patient?s call. She reported worsening RUQ pain ass ociated with nausea vomiting diarrhea and bloating. Denied any fever/chil ls, cough. Advised her to go to the ED to r/o pancreatitis, complicatio n in the large liver cysts. She voiced understanding. Johnny Winn MD [facility] on 2020-05-18 CNPN Telephone (FAMPWS) Normal 05-18-2020 [place] [facility] SALLY MCGREGOR ([id number]) 1980 [facility] Date Time Provider Department ([id number]) 05/18/[address] [facility] During your visit today, we recorded [...] [M25.519] Order(s):CONSULT TO ORTHOPAEDICS [9033] Order #: [id number] ty: 1 FUTURE Prescriptions as of 05/18/2020 [...] * * *Final Report* * * Normal [facility] AP/ZENOBIA AP/OTHR DATE OF EXAM: May 17 2020 12:16PM [place] ([id number]) RT WOX 5253 - XR SHLDR >/=3V AP/ZENOBIA AP/OTHR RT / [id number] PROCEDURE REASON: Acute pain of right shoulder [...] abnormalities identified i n the right shoulder. Cigar Packer And Sorter: HERMINIO Transcribe Date/Time: May 17 2020 12:18P Dictated by : KORI BLANKENSHIP MD This examination was interpreted and the report reviewed and electronically signed by: KORI BLANKENSHIP MD on May 17 2020 12:20PM EST [id number] progress on 2020-05 PROGRESS HNO ID: [id number] Normal 05-17-2020 [facility] Author: Kylee PickardRtVianey Lea [place]ata ([id number]) Service: ? Author Type: Warehouse Shipper Type: Progress Notes Filed: 05/17/2020 12:17 PM [...] 17, 2020 12:08 PM PROGRESS HNO ID: [id number] Normal 05-17-2020 [facility] Author: Kenia Mary) Bartolo Mata ([id number]) Service: ? Author Type: Nurse Practitioner Type: Progress Notes Filed: 05/17/2020 12:45 PM Note Text: Visit Date: May 17, 2020 Patient Name: Ms.Nichole Jeana Mcgregor Date of : 1980 MRN/E #: [id number] Chief Complaint Patient presents with: right shoulder [...] Benign liver cyst 05/24/2010 CT scan at [facility] 11/2009 and 04/2010 showe 4 mm increase in size . No pain. No elevated LFTs on 03/11/2010. - Calculus of kidney 05/17/[address] Nicolas: Hospitalized age 20, and again later -- no procedures so far ([facility], most, 1995 [facility]) - Dysmenorrhea - History of [...] Approx. 3 cigarettes daily-1 pack every w ak chin Substance Use Topics - Alcohol use: Yes [...] 2020-05-17 CNOV Office Visit (UCWSTR) Normal 05-17-[address] [place] [address] [facility] SALLY MCGREGOR ([id number]) 1980 [facility] Time Provider Department ([id number]) 05/17/20 11:45 AM KENIA MCFARLAND (JAKI) [facility] During your visit today, we recorded the following informati on about you: Temperature Pulse Respiration Blood pressure 97.8 degrees 86/minute 16/minute 124/82 Weight 89.9 kg Kenia Mcfarland APRN.CNP 05/17/2020 12:45 PM Signed Visit Date: May 17, 2020 Patient Name: Ms.Nichole Jeana Mcgregor Date of : 1980 MRN/E #: [id number] Chief Complaint Patient presents with: right shoulder [...] Benign liver cyst 05/24/2010 CT scan at [facility] 11/2009 and 04/2010 showe 4 mm increase in size . No pain. No elevated LFTs on 03/11/2010. - Calculus of kidney 05/17/[address] Nicolas: Hospitalized age 20, a nd again later -- no procedures so far ([facility], most, 1995 [facility]) - Dysmenorrhea - History of [...] removed - TOTAL ABDOM HYSTERECTOMY 08/31/06 Hysterectomy, [facility] Social History Tobacco Use - Smoking status: Former Smoker Packs/day: 0.50 Years: 3.00 Pack years: 1.50 Types: Cigarettes Quit date: 01/12/2017 Years since quittin.3 - Smokeless tobacco: Never Used - Tobacco comment: Approx. 3 cigarettes daily-1 pack every w ak chin Substance Use Topics - Alcohol use: Yes [...] mean Date Reviewed: 05/17/2020 Reviewed by: Kenia PickardConcrete Craftsman) Workman - Fully Assessed Reason for Visit: right shoulder pain [Other] Cmt: fell in shoulder yesterday Primary Visit Diagnosis:Acute pain of right shoulder [M25.51 1] Order(s):XR SHOULDER GENERAL 3V OR MORE AP/TRUE AP/OTHER RT [[id number]] Order #: [id number]. #:[id number] Prescriptions as of 05/17/2020 Sig: PANTOPRAZOLE 40 [...] on 05/17/20 No panel information on 2020-05-17 [facility] ([id number]) cnpn on 2020-05-11 CNPN Telephone (GSTNOR) Normal 05-11-2020 [place] [facility] SALLY MCGREGOR ([id number]) 1980 F [place] Date Time Provider Department ([id number]) 05/11/20 JOHNNY WINN GSTNOR During your visit today, we recorded the following informati on about you: Eleanor Andreson Pss 05/11/2020 3:44 PM Signed She is [...] on 2020-05-11 CNCO Letter Text Normal 05-11-2020 [facility] ([id number]) progress on 2020-04 PROGRESS HNO ID: [id number] Normal 05-10-2020 [facility] Author: Johnny Winn [place] ([id number]) Service: ? Author Type: Physician Type: Progress [...] pathology on 2020-05-08 SURGICAL Specimen originated from [facility] Normal 05-08-2020 [place] PATH[facility]Y Specimen #: [id number] Clinic Submitting Physician: JOHNNY WINN MD [place] ([id number]) FINAL DIAGNOSIS 1. Random colon, biopsy (A) [...] in one cassette. Gross examination performed at [facility], [address] [place] [address] [place] 05/08/2020 11:06:23 PM B. Received in [...] in one cassette. Gross examination performed at [facility], [address] [place] [address] JT 05/08/2020 11:23:05 PM Date of Report: 05/11/2020 Date of Procedure: 05/08/2020 Date of Receipt: 05/08/2020 Submitted by: JOHNNY WINN MD Location: [facility] Diagnostic interpretation performed at [facility], [address] [place] [address]. CLIA Number: [id number] pt ed on 2020-05-08 PT ED HNO ID: [id number] Normal 05-08-2020 [facility] Author: Penny Benedict RN [place] ([id number]) Service: ? Author Type: Registered Nurse Type: [...] history physical on 2020-05-08 HISTORY HNO ID: [id number] Normal 05-08-2020 [place] PHYSICAL Author: Johnny Winn [facility] Service: Gastroenterology [place] Author Type: Physician ([id number]) Type: HANDP Filed: 05/08/2020 12:46 PM Note [...] pre-op on 2019 ANES PRE-OP HNO ID: [id number] Normal 0 [facility] Author: Tania Mata ([id number]) Service: ? Author Type: Nurse Career Advisor Type: Anesthesia Preprocedure Evaluation Filed: 05/08/2020 12:36 [...] May 08, 2020 TIME: 12:26 PM CSN: [id number] anes postproc eval on 2020-05-08 ANES POSTPROC EVAL HNO ID: [id number] Normal [facility] Author: Tania Mata ([id number]) Service: ? Author Type: Nurse Career Advisor Type: Anesthesia Postprocedure Evaluation Filed: 05/08/2020 1:36 [...] May 08, 2020 TIME: 1:36 PM CSN: [id number] No panel information on 2020-05-08 Adjunct Nursing Faculty [place] [facility] Gastrointestinal Endoscopy ([id number]) Patient Name: Sally Mcgregor Procedure Date: 05/08/2020 [...] Recommendation: - Patient has a contact number [facility] for emergencies. The signs and [...] Estimated Blood Loss: Estimated blood loss: none. Adjunct Nursing Faculty [place] [facility] ([id number]) Patient Name: Slaly Mcgregor Procedure Date: 05/08/2020 12:47 PM Date [...] on 2020-05-07 CNPN Telephone (GSTNOR) Normal 05-07-2020 [place] [facility] SALLY MCGREGOR ([id number]) 1980 F [facility] Time Provider Department (94282) 05/07/20 JOHNNY WINN GSTNOR During your visit [...] not draw the celiac panel. Pierce Barber SUPERVISOR SEWING ROOM Allergies As of Date: 05/07/2020 Noted Allergy [...] on 2020-05-01 CNPN Telephone (GSTNOR) Normal 05-01-2020 [place] [facility] SALLY MCGREGOR ([id number]) 1980 F [place] Date Time Provider Department (86279) 05/01/20 JOHNNY WINN GSTNOR During your visit [...] elier was not drawn, left message with [facility] to contact patient for redraw Pierce [...] * * *Final Report* * * Normal [facility] - DATE OF EXAM: Apr 30 2020 4:13PM [place] ([id number]) [facility] 1232 - US ABD SPLEEN [...] cyst, enlarged compared to p rior study. Cigar Packer And Sorter: HERMINIO Transcribe Date/Time: Apr 30 2020 4:19P Dictated by : KORI BLANKENSHIP MD This examination was interpreted and the report reviewed and electronically signed by: KORI BLANKENSHIP MD on Apr 30 2020 4:27PM EST [id number] us abd right upper quadrant on 2020-04-30 US ABD RIGHT * * *Final Report* * * Normal 04-14 [facility] UPPER QUADRANT DATE OF EXAM: Apr 30 2020 4:13PM [place] ([id number]) [facility] 1032 - US ABD RIGHT UPPER [...] cyst, enlarged compared to p rior study. Cigar Packer And Sorter: [facility] Transcribe Date/Time: Apr 30 2020 4:19P Dictated by : KORI BLANKENSHIP MD This examination was interpreted and the report reviewed and electronically signed by: KORI BLANKENSHIP MD on Apr 30 2020 4:27PM EST [id number] progress on 2020-04 PROGRESS HNO ID: [id number] Normal 04-30-2020 [facility] Author: Vianey Ramos (Tech) [place] ([id number]) Service: ? Author Type: Warehouse Shipper Type: Progress Notes Filed: 04/30/2020 4:14 PM [...] on 2020-04 OBSOLETE Refill (FAMPWS) Normal 04-30-2020 [facility] SALLY MCGREGOR ([id number]) 1980 [facility] Time Provider Department (45577) 04/30/20 MARCELINO MEJIA FAMPWS During your visit [...] 04/30/20 igg subclasses+total on 2020-04-30 IgG [Mass/Vol] 0281 479-4032 mg/dL Normal 04-30-2020 [facility] (85274) Comment: Performed By: #### IGGSUB ## ##[address] [id number] [phone] IgG Subclass 1 757.6 382.4-928.6 mg/dL Normal 04-30-2020 [facility] (19740) Comment: Performed By: #### IGGSUB ## ##[address] [id number] [phone] IgG Subclass 2 398.2 241.8-700.3 mg/dL Normal 04-30-2020 [facility] (27478) Comment: Performed By: #### IGGSUB ## ##[address] [id number] [phone] IgG Subclass 3 42.7 21.8-176.1 mg/dL Normal 04-30-2020 [facility] (48037) Comment: Performed By: #### IGGSUB ## ##[address] [id number] [phone] IgG Subclass 4 39.7 3.9-86.4 mg/dL Normal 04-30-2020 [facility] (10975) Comment: Performed By: #### IGGSUB ## ##[facility] [place] [address] [phone] cnpn on 2020-04-30 CNPN Telephone (GSTNOR) Normal 04-30-2020 [place] [facility] SALLY MCGREGOR ([id number]) 1980 [facility] Date Time Provider Department (58250) 04/30/20 JOHNNY WINN GSTNOHerman During your visit [...] on 04/30/20 No panel information on 2020-04-30 [facility] ([id number]) cnpn on 2020-04-[facility]) Normal 04-27-2020 [place] [facility] TOSHIASALLY TORRES ([id number]) 1980 [facility] Date Time Provider Department (70703) 04/27/20 MARCELINO MEJIA During your visit today, we recorded the following informati on about you: Christopher Carcamo RN 04/27/2020 9:04 AM Signed Patient asking if pcp would send Rx for phenergan to [facility]. Reports she's had nausea for weeks. [...] 04/27/20 progress on 2020-04 PROGRESS HNO ID: [id number] Normal 04-26-2020 [facility] Author: Johnny Winn [place] ([id number]) Service: ? Author Type: Physician Type: Progress [...] note she presented to the ED in [place] in January 2020 for a bdominal pain of [address] abdomen was essentially unremarkable i ncluding pancreas. Was found to have lipase of 193 on 02/15/2020. Amylase normal. Hepatic function panel. Has h/o cholecystectomy in 1998. Denies NSAIDs. Smoking - quit 3 months ago. 1 pack/day X 15 years. Etoh - denies. Drugs - denies. Record Review: [facility] records reviewed PAST MEDICAL HISTORY Diagnosis Date - Allergic rhinitis, cause unspecified 05/17/2008 Spring and summer - Benign liver cyst 05/24/2010 CT scan at [facility] 11/2009 and 04/2010 showe 4 mm increase in size . No pain. No elevated LFTs on 03/11/2010. - Calculus of kidney 05/17/[address] Nicolas: Hospitalized age 20, and again later -- no procedures so far ([facility], most, 1995 [facility]) - Dysmenorrhea - History of [...] removed - TOTAL ABDOM HYSTERECTOMY 08/31/06 Hysterectomy, [facility] Allergies: ALLERGIES Allergen Reactions - Penicillins Rash [...] Approx. 3 cigarettes daily-1 pack every w ak chin Substance Use Topics - Alcohol use: Yes [...] CNOV Office Visit (GSTNOR) Normal 04-26- 20 [place] [facility] SALLY MCGREGOR ([id number]) 1980 F [place] Date Time Provider Department ([id number]) 04/26/20 3:00 PM JOHNNY WINN During your [...] Benign liver cyst 05/24/2010 CT scan at [facility] 11/2009 and 04/2010 showe 4 mm increase in size . No pain. No elevated LFTs on 03/11/2010. - Calculus of kidney 05/17/[address] Nicolas: Hospitalized age 20, a nd again later -- no procedures so far ([facility], most, 1995 [facility]) - Dysmenorrhea - History of [...] removed - TOTAL ABDOM HYSTERECTOMY 08/31/06 Hysterectomy, [facility] Allergies: ALLERGIES Allergen Reactions - Penicillins Rash [...] Approx. 3 cigarettes daily-1 pack every w ak chin Substance Use Topics - Alcohol use: Yes [...] If you do not have a responsible national van truck driver (family member or friend) with [...] the prescription bowel preparation solution at your [facility] pharmacy or drugstore pharmacy. 08/2019 Bowel Preparation [...] or limit intake. Referring Provider: MARCELINO MEJIA [[id number]] Allergies As of Date: 04/26/2020 Noted Allergy [...] doctor.Disp: 1 BottleRfl : 0 INSERT IV (ND,[place]) [[id number]] Order #: [id number]: 1 FUTURE IV DISCONTINUE [2964592] Order #: [id number]: 1 FUTURE INSERT IV ([place]) [5998856] Order #: [id number]: 1 EGD [8658846] Order #: [id number] FUTURE COLONOSCOPY - DIAGNOSTIC [1667817] Order #: [id number] FUTUR E CELIAC DISEASE PANEL [7582082] Order #: [id number] FUTURE IGG SUBCLASSES BLD [SQIGGSUB] Order #: [id number] FUTURE US ABD RT UPPER QUADRANT [7758629] Order #: [id number] FUTUR E metroNIDAZOLE (FLAGYL) 500 mg tabletTake [...] AND PRE-OPERATIVE COVID [SQPOCOVD] Order #: [id number] FUTURE Prescriptions as of 04/26/2020 Sig: DIPHENHYDRAMINE [...] take a taxi or bus, or leave [facility] ALONE. If you do not have a responsible national van truck driver (famil y member or friend) [...] the prescription bowel preparation solution at your [facility] pharmacy or drugstore pharmacy. 08/2019 Bowel Preparation [...] on 2020-04-26 CNCO Letter Text Normal 04-26-2020 [facility] ([id number]) cnpn on 2020-04-19 CNPN Telephone (FAMPWS) Normal 04-19-2020 [place] [facility] SALLY MCGREGOR ([id number]) 1980 [facility] Date Time Provider Department (77032) 04/19/[address] [facility] During your visit today, we recorded the following informati on about you: Christopher Carcamo RN 04/19/2020 10:49 AM Signed Faxed GI referral and demographics to [facility] GI, per patient request. . Allergies [...] Fully Assessed Reason for Visit: Faxed to [facility] GI [Other] Prescriptions as of 04/19/2020 [...] on 2020-04-18 CNPN Telephone (FAMPWS) Normal 04-18-2020 [place] [facility] SALLY MCGREGOR ([id number]) 1980 [facility] Date Time Provider Department ([id number]) 04/18/[address] [facility] During your visit today, we recorded the following informati on about you: Yvette Huffman RN 04/18/2020 2:01 PM Signed Pt called, verified by name and birthdate. Pt wants to know if she can see a GI doctor. Reviewed pt's chart and she has a GI con sult with GI group in [place]. Pt verbalized understanding, states she will call to make ap t Yvette Huffman RN Allergies As of Date: 04/18/2020 Noted Allergy Reaction PENICILLINS 12/07/2009 2 - Rash ASA (SALICYLATES) 01/27/2011 14 - Other: See Comments Comments: ulcers CONTRAST DYE (IODINE) 05/17/2008 12 - Shortness of Breath FLAGYL (METRONIDAZOLE HCL) 03/11/2010 12 - Shortness of [place] IBUPROFEN 06/18/2016 8 - GI Upset PREDNISONE 06/18/2016 14 - Other: See Comments Comments: makes agitated and mean Date Reviewed: 02/23/2020 Reviewed by: Marcelino Mejia - Fully Assessed Reason for Visit: Patient Question [4337] Prescriptions as of 04/18/2020 Sig: TOPIRAMATE 50 [...] on 2020-04-16 CNPN Telephone (FAMSkylerWS) Normal 04-16-2020 [place] [facility] SALLY MCGREGOR ([id number]) 1980 [facility] Date Time Provider Department (52263) 04/16/20 [facility] During your visit today, we recorded the following informati on about you: Edwina Tatum HOURLY ASSOCIATE 04/16/2020 11:38 AM Signed Pt calls to report she went to [facility] ER 04/12. Pt reports she [...] (METRONIDAZOLE HCL) 03/11/2010 12 - Shortness of [place] IBUPROFEN 06/18/2016 8 - GI Upset [...] on 2020-03-29 CNPN Telephone (FAMPWS) Normal 03-29-2020 [place] [facility] SALLY MCGREGOR ([id number]) 1980 [facility] Date Time Provider Department (09711) 03/29/[address] [facility] During your visit today, we recorded the following informati on about you: Melanie Debby HERNANDEZ 03/29/2020 10:06 AM Signed Patient calling crying constantly, so congested from a ll the crying, can not get appt with [facility] will not take her insurance. [facility] will not take any new [...] AM Signed 1. Can we confirm that [facility] neuro at [facility] doesn't take her insurance. If they don't take her insurance then we ca n see if can get her in with Dr. Church since he is back in [facility] now. 2. Find out how long [...] said to ask for prescription for [facility] relaxer or ibuprofen (she said, in below message she can't take ibuprof en). TC to [facility] and had to leave message for them to return call regarding if they accept patient's insurance. Instructed the m to give patient's name when they return the call so we can document. Lorenzo Vu 03/29/2020 12:49 PM Signed Giulia / [facility] returned call stating the y do not take [place]; provider is not credentialed with them yet. [...] muscle relaxer for her migraines. Pharmacy is [facility]. Please review and advise. VIN Solis [...] (METRONIDAZOLE HCL) 03/11/2010 12 - Shortness of [place] IBUPROFEN 06/18/2016 8 - GI Upset [...] 2020-03-28 CNPN Telephone (FAMWS) Normal 03-28-2020 [place] [facility] SALLY MCGREGOR ([id number]) 1980 [facility] Date Time Provider Department (98270) 03/28/20 MARCELINO MEJIA During your visit today, [...] OBSOLETE Refill (FAMPWS) Normal 03-27-2020 Isaías veland [facility] SALLY MCGREGOR ([id number]) 1980 [facility] Date Time Provider Department ([id number]) 03/27/20 MARCELINO MEJIA FAMPWS During your visit [...] to pharmacy. No need to notify patient. Valenet Bruce Ma Last ov: 03/2020 Last refill: [...] on 2020-03-27 CNPN Telephone (FAMPWS) Normal 03-27-2020 [place] [facility] SALLY MCGREGOR ([id number]) 1980 F [place] Date Time Provider Department (68806) 03/27/20 MARCELINO MEJIA During your visit today, we recorded the following informati on about you: Yvette Huffman RN 03/27/2020 10:59 AM Signed Pt called, verified by name and birthdate. Pt states s he went to [facility] ER last night for a migraine and had a CT scan. Pt wants PCP to review ER records. Pt wants referral to neurology. Order pended. When signed pleas e fax to [place] [facility] at [facility] per pt request Yvette Murphy Ma 03/27/2020 12:20 PM Signed ER reports on PCP's desk to review. Jessica Zhou, RN, RN 03/27/2020 1:37 PM Signed Pt calls, asking what the diagnosis was on the ER note. Pt states she was told air bubble, tumor States Imitrex is not working. Has already taken 2 today. Wa iting on [place] [facility] to call her back Pt asking [...] referral placed and can be [facility] [facility]. Let patient know th e [...] referred to. See needs to contact her prompt care rn to get the help see nee ds as instructed on 03/22/2020, otherwise our hands are tied. Jessica Murphy Ma 03/27/2020 2:29 PM Signed Pt notified and voiced understanding. Referral and Dem o faxed to [facility]. Jessica Murphy Ma Allergies As of Date: [...] [G43.009] Order(s):CONSULT TO NEUROLOGY [[id number]] Order #: [id number]: 1 FUTURE Prescriptions as of 03/27/2020 Sig: [...] 03/27/20 progress on 2020-03 PROGRESS HNO ID: [id number] Normal 03-22-2020 [facility] Author: Isabel (Maya) Hugo Mata ([id number]) Service: ? Author Type: Physician Staff Command And Control Officer Type: Progress Notes Filed: 03/22/2020 9:50 AM Note Text: DISTANCE HEALTH VISIT This Team Access Model visit is a phone encounter. It requir ed patient-provider interaction for the medical decision making as documented below. No video was used for evaluation of this patient. Patient consents to visit. Patient location: [place] Sally Mcgregor is a 39 year old female seen for headaches a nd pain. Patient states she has had to cancel with pain management 5 different times so now they won't reschedule her. She continues to have migraines/headaches. Only taking topam ax once a day. Couldn't do MRI or US due to rides. States she couldn't go to [place] for her cardiac testing but continues to [...] 11-20 minutes cnpn on 2020-03-22 CNPN Telephone ([facility]) Normal 03-22-2020 [place] [facility] TOSHIASALLY TORRES ([id number]) 1980 [facility] Date Time Provider Department ([id number]) 03/22/20 ISABEL ARIAS) RAMA During your visit today, we recorded the following informati on about you: ISABEL ARIAS PA-C 03/22/2020 9:43 AM Signed Please let patient know that this is info I have received from in regards to rides: The last I knew, most of them were back up and running. I do know that [facility] has been continuing with their ride assistance and are taking people to their appts. I would sa y they need to check now with insurance to see if able to set up ride. The patient could also see if they can request a prompt care rn through their Medicaid Managed Care p maria esther. I have patients that have Medicaid plan and their care managers a re able to assist them setting up services. Having a prompt care rn through insu eve is great because they [...] again. I advised her that she contact [place] and request more help from her prompt care rn. Allergies As of Date: 03/22/2020 Noted Allergy [...] Encounter Status:Closed by ISABEL WARE on 03/22/20 [facility] Normal 03-08-2020 [place] SALLY Martinez ([id number]) 1980 [facility] Date Time Provider Department ([id number]) 03/08/[address] [facility] During your visit today, we recorded [...] t to see gastroenterology as discussed recently. rBanden Sanders Ma 03/08/2020 4:42 PM Signed Tried calling patient back no answer and vm was full Branden Bernardo LPN 03/08/2020 5:02 PM Signed Pt returns call. Advised her of provider's message. Placed p t on hold to transfer with warm transfer to scheduling and while waiting for showroom consultant which was awhile, pt dropped call. Attempted [...] (METRONIDAZOLE HCL) 03/11/2010 12 - Shortness of [place] th IBUPROFEN 06/18/2016 8 - GI Upset [...] on 2020-03-05 CNPN Telephone ([facility]) Normal 03-05-2020 [place] [facility] BENJIShivaSALLY ([id number]) 1980 F [place] Date Time Provider Department ([id number]) 03/05/[address] [facility] During your visit today, we recorded the following informati on about you: Sallie Benitez HOURLY ASSOCIATE 03/05/2020 1:58 PM Signed Patient is scheduling [...] on 03/06/20 CNPN Telephone (FAMPWS) Normal 03-05-2020 [place] [facility] SALLY MCGREGOR ([id number]) 1980 F [place] Date Time Provider Department ([id number]) 03/05/20 MARCELINO MEJIA During your visit today, we recorded the following informati on about you: Melanie Debby HOURLY ASSOCIATE 03/05/2020 2:16 PM Signed Patient calling would like showroom consultant to call her back to set up [...] 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 vic stated she is to see Dr. Joseph here in [facility] for Pain Management. Verified that we have [facility] and MRI schedul ed here on 03/19. -Marry Xavi Pss Allergies As of Date: 03/05/2020 Noted Allergy Reaction PENICILLINS 12/07/2009 2 - Rash ASA (SALICYLATES) 01/27/2011 14 - Other: See Comments Comments: ulcers CONTRAST DYE (IODINE) 05/17/2008 12 - Shortness of Breath FLAGYL (METRONIDAZOLE HCL) 03/11/2010 12 - Shortness of [place] th IBUPROFEN 06/18/2016 8 - GI Upset [...] on 2020-02-28 CNPN Telephone (FAMPWS) Normal 02-28-2020 [place] SALLY Martinez ([id number]) 1980 F [place] Date Time Provider Department ([id number]) 02/28/[address] [facility] During your visit today, we recorded the following informati on about you: Janneth Zhou, RN, RN 02/28/2020 10:41 AM Signed Pt calls for ER F/U appt. States she was at [facility] ER on 02/24 after reportidly passing out. [...] XR CHEST 1 VIEW ORIGINAL Normal 02-25-2020 [facility] XR CHEST 1 VIEW Foun dation ([place]) (15975) CLINICAL STATEMENT: Chest pain COMPARISON: 04/06/2006 FINDINGS: [...] Troponin I.cardiac <0.020 0.000-0.040 ng/mL Normal 0 [place] [employer] [Mass/Vol] [place] n ([place]) (01802) Comment: Result Comment: Troponin I r eference range: 0.00-0.040 ng/mL Negative an d non-diagnostic. >0.040 ng/mL Consistent with cardiac damage, increased clinical risk and possibility of myocardial in farction. Serial measurements, a rise & fall in test results, clinical histo ry, appropriate symptoms and/or ECG changes may help assess possibility of IN. *Other non-acute coronary sy ndrome conditions such as CHF, myoc arditis, pulmonary emboli, sepsis and cardiac surgery could result in myoc ardial damage and increased troponi n levels. Performed By: #### CBC, ADIF F, ANEU, BMP, GFR #### [address] [address] mg on 2020-02-25 Magnesium [Mass/Vol] 2.0 1.8-2.4 mg/dL Normal 0 [facility] ([place]) (0000 0) Comment: Performed By: #### CBC, ADIF F, ANEU, BMP, GFR #### [address] [address] lip on 2020-02-25 Lipase Level 562 73-393 U/L High 02-25-2020 [facility] ([place]) (28020) Comment: Performed By: #### CBC, ADIF F, ANEU, BMP, GFR #### [address] [address] cmp on 2020-02-25 Albumin [Mass/Vol] 4.1 3.5-5.0 G/dL Normal 02-25-2020 [facility] ([place]) (26709) Comment: Performed By: #### CBC, ADIF F, ANEU, BMP, GFR #### [address] [address] Albumin/Globulin [Mass 1.2 1.1-2.5 ratio Normal [address] [place] [address]] [facility] ([place]) (28255) Comment: Performed By: #### CBC, ADIF F, ANEU, BMP, GFR #### [address] [address] ALP [Catalytic activity/Vol] 98 40-135 U/L Normal 0 02-25-2020 [facility] ([place]) (0000 0) Comment: Performed By: #### CBC, ADIF F, ANEU, BMP, GFR #### [address] [address] ALT [Catalytic activity/Vol] 30 10-35 U/L Normal 0 02-25-2020 [facility] ([place]) (0000 0) Comment: Performed By: #### CBC, ADIF F, ANEU, BMP, GFR #### [address] [address] AST [Catalytic activity/Vol] 15 10-40 U/L Normal 0 02-25-2020 [facility] ([place]) (0000 0) Comment: Performed By: #### CBC, ADIF F, ANEU, BMP, GFR #### [address] [address] Bili Total 0.4 0.2-1.0 mg/dL Normal 02-25-2020 [facility] ([place]) (67285) Comment: Result Comment: Use of this assay is not recommended for patients undergoing treatment with eltrombopag d ue to the potential for falsely elevated results. Performed By: #### CBC, ADIF F, ANEU, BMP, GFR #### [address] [address] Calcium [Mass/Vol] 8.9 8.4-10.2 mg/dL Normal 02-25-2020 [facility] ([place]) (0000 0) Comment: Performed By: #### CBC, ADIF F, ANEU, BMP, GFR #### [address] [address] Chloride [Moles/Vol] 104 98-107 mmol/L Normal 0 [facility] ([place]) (0000 0) Comment: Performed By: #### CBC, ADIF F, ANEU, BMP, GFR #### [address] [address] CO2 [Moles/Vol] 28 22-29 mmol/L Normal 02-25-2020 [facility] ([place]) (20160) Comment: Performed By: #### CBC, ADIF F, ANEU, BMP, GFR #### [address] [address] Creatinine [Mass/Vol] 1.01 0.55-1.02 mg/dL Normal 02-25-20 20 [facility] ([place]) (70703) Comment: Performed By: #### CBC, ADIF F, ANEU, BMP, GFR #### [address] [address] Electrolyte Balance 9.0 mEq/L Normal 02-25-2020 [facility] ([place]) (55926) Comment: Performed By: #### CBC, ADIF F, ANEU, BMP, GFR #### [address] [address] Globulin (S) [Mass/Vol] 3.4 G/dL Normal 2019 [facility] ([place]) (38499) Comment: Performed By: #### CBC, ADIF F, ANEU, BMP, GFR #### [address] [address] Glucose [Mass/Vol] 112 70-105 mg/dL High 02-25-2020 [facility] ([place]) (15575) Comment: Performed By: #### CBC, ADIF F, ANEU, BMP, GFR #### [address] [address] Potassium [Moles/Vol] 3.7 3.5-5.1 mmol/L Normal 02-25-20 [facility] ([place]) (0000 0) Comment: Performed By: #### CBC, ADIF F, ANEU, BMP, GFR #### [address] [address] Protein [Mass/Vol] 7.5 6.4-8.2 G/dL Normal 02-25-2020 [facility] ([place]) (56970) Comment: Performed By: #### CBC, ADIF F, ANEU, BMP, GFR #### [address] [address] Sodium [Moles/Vol] 141 136-145 mmol/L Normal 02-25-2020 [facility] ([place]) (0000 0) Comment: Performed By: #### CBC, ADIF F, ANEU, BMP, GFR #### [address] [address] Urea nitrogen [Mass/Vol] 21 7-18 mg/dL High 02-24 [facility] ([place]) (21985) Comment: Performed By: #### CBC, ADIF F, ANEU, BMP, GFR #### [address] [address] Urea nitrogen/Creatinine [Mass 21 7-27 ratio Normal 02-25-2020 [facility]] [facility] ([place]) (50224) Comment: Performed By: #### CBC, ADIF F, ANEU, BMP, GFR #### [address] [address] cbc on 2020-02-25 Erythrocyte distribution 14.9 11.5-14.5 % High 02-24 [facility] width (RBC) [Ratio] ([place]) (81442) Comment: Performed By: #### CBC, ADIF F, ANEU, BMP, GFR #### [place] [address] Hematocrit (Bld) [Volume 35.9 37.0-47.0 % Low 02-24 [facility] fraction] ([place]) (0000 0) Comment: Performed By: #### CBC, ADIF F, ANEU, BMP, GFR #### [place] [address] Hemoglobin (Bld) 11.8 12.0-16.0 G/dL Low 02-25-2020 [facility] [Mass/Vol] ([place]) (000 00) Comment: Performed By: #### CBC, ADIF F, ANEU, BMP, GFR #### [place] [id number] MCH (RBC) [Entitic mass] 29.5 27.0-31.2 pg Normal 02-24 [facility] ([place]) (0000 0) Comment: Performed By: #### CBC, ADIF F, ANEU, BMP, GFR #### [place] [id number] MCHC (RBC) [Mass/Vol] 32.9 33.0-37.0 G/dL Low 02-25-20 20 [facility] ([place]) (0000 0) Comment: Performed By: #### CBC, ADIF F, ANEU, BMP, GFR #### [place] [id number] MCV (RBC) [Entitic vol] 89.9 80.0-94.0 fL Normal 2019 [facility] ([place]) (0000 0) Comment: Performed By: #### CBC, ADIF F, ANEU, BMP, GFR #### [place] [address] Platelet mean volume 9.2 7.4-10.4 fL Normal 0 [facility] (d) [Entitic vol] ([place]) (48202) Comment: Performed By: #### CBC, ADIF F, ANEU, BMP, GFR #### [place] [address] Platelets (Bld) [#/Vol] 265 130-400 10 3/mcL Normal 2019 [facility] ([place]) (21343) Comment: Performed By: #### CBC, ADIF F, ANEU, BMP, GFR #### [place] [address] RBC (Bld) [#/Vol] 4.00 4.20-5.40 10 6/mcL Low 02-25-2020 [facility] ([place]) (0000 0) Comment: Performed By: #### CBC, ADIF F, ANEU, BMP, GFR #### [place] [address] WBC (Bld) [#/Vol] 9.90 4.60-10.80 10 3/mcL Normal 02-25-2020 [facility] ([place]) (20022) Comment: Performed By: #### CBC, ADIF F, ANEU, BMP, GFR #### [place] [address] .neuabs on Neutrophils (Bld) 6.00 2.85-6.16 10 3/mcL Normal 02-25-2020 [facility] [#/Vol] [facility] ([place]) (55733) Comment: Performed By: #### CBC, ADIF F, ANEU, BMP, GFR #### [address] [address] .gfr on 2020-02-25 GFR Non- 61 ml/min/1.73sqm Normal 02-25-2020 [facility] ([place]) (60894) Comment: Result Comment: GFR Population mean for Afri can English, Non- Americans Ages 20-29 = 116 mL/min/1.73 [...] CBC, ADIF F, ANEU, BMP, GFR #### [address] [address] GFR 74 ml/min/1.73sqm Normal 02-12 [facility] ([place]) (0000 0) Comment: Result Comment: GFR Population mean for Afri can English, Non- Americans Ages 20-29 = 116 mL/min/1.73 [...] CBC, ADIF F, ANEU, BMP, GFR #### [address] [address] .auto diff on 02-24 Ammonia (P) [Mass/Vol] 0.60 0.15-1.00 10 3/mcL Normal 020 [facility] ([place]) (30963) Comment: Performed By: #### CBC, ADIF F, ANEU, BMP, GFR #### [address] [address] Basophils (Bld) 0.00 0.00-0.19 10 3/mcL Normal 02-25-2020 [facility] [#/Vol] [facility] ([place]) (26055) Comment: Performed By: #### CBC, ADIF F, ANEU, BMP, GFR #### [address] [address] Basophils/100 WBC (Bld) 0.2 0.0-2.5 % Normal 2019 [facility] ([place]) (0000 0) Comment: Performed By: #### CBC, ADIF F, ANEU, BMP, GFR #### [address] [address] Eosinophils (Bld) 0.30 0.00-0.40 10 3/mcL Normal 02-25-2020 [facility] [#/Vol] [facility] ([place]) (67111) Comment: Performed By: #### CBC, ADIF F, ANEU, BMP, GFR #### [address] [address] Eosinophils/100 WBC (Bld) 3.5 0.0-7.0 % Normal 02-12 [facility] ([place]) (0000 0) Comment: Performed By: #### CBC, ADIF F, ANEU, BMP, GFR #### [address] [address] Lymphocytes (Bld) 2.90 0.77-3.85 10 3/mcL Normal 02-25-2020 [facility] [#/Vol] [facility] ([place]) (86602) Comment: Performed By: #### CBC, ADIF F, ANEU, BMP, GFR #### [address] [address] Lymphocytes/100 WBC (Bld) 28.9 10.0-50.0 % Normal 02-12 [facility] ([place]) (00830) Comment: Performed By: #### CBC, ADIF F, ANEU, BMP, GFR #### [address] [address] Monocytes/100 WBC (Bld) 6.3 1.7-13.0 % Normal 2019 [facility] ([place]) (0000 0) Comment: Performed By: #### CBC, ADIF F, ANEU, BMP, GFR #### [facility] [address] [place] [address] Neutrophils/100 WBC (Bld) 61.1 37.0-80.0 % Normal 02-12 [facility] ([place]) (22767) Comment: Performed By: #### CBC, ADIF F, ANEU, BMP, GFR #### [facility] [address] [place] [address] progress on 2020-02 PROGRESS HNO ID: [id number] Normal 02-23-2020 [facility] Author: Marcelino Mejia [place] ([id number]) Service: ? Author Type: Physician Type: Progress Notes Filed: 02/23/2020 12:21 PM Note Text: This Team Access Model visit is a phone encounter. It requir ed patient-provider interaction for the medical decision making as documented below. The patient is identified by name and birthday. Patient loca tion: [place] The patient is aware that I am [...] on 2020-02-20 CNPN Telephone (FAMPWS) Normal 02-20-2020 [place] [facility] SALLY MCGREGOR ([id number]) 1980 [facility] Date Time Provider Department ([id number]) 02/20/20 MARCELINO MEJIA During your visit today, we recorded the following informati on about you: Lexy Tapia RN 02/20/2020 8:40 AM Signed fyi- Patient calls to report to PCP that she was back in [facility] ER over weekend due to pain from Pancreatitis. Her level was 800, so they s ent me home. States she received Oxycodone and report s that it is not doing much to relieve her pain and wanted PCP aware that she was in ER again. Patient did not have phone number of [facility] to schedule f ollow up. This [...] (METRONIDAZOLE HCL) 03/11/2010 12 - Shortness of [place] th IBUPROFEN 06/18/2016 8 - GI Upset [...] Encounter Status:Closed by MARCELINO MEJIA on 02/20/20 [facility]) Normal 02-20-2020 [place] [facility] SALLY MCGREGOR ([id number]) 1980 [facility] Date Time Provider Department ([id number]) 02/20/20 MARCELINO MEJIA [facility] During your visit today, we recorded the following informati on about you: Christopher Carcamo RN 02/20/2020 9:48 AM Signed Patient phoned crying and distraught, stating [facility], can not get her in until March. States she cannot take this pain anymore, her insurance will not cover anyone in [facility] When she was in the hospital [...] pain right now, she is upset because [facility] cannot see her until March. Asking if there is anything pcp can do to get her in sooner? Ple ase phone patient with reply. Marcelino Mejia MD 02/20/2020 10:15 AM Signed Let patient know the only op tions ar for her to go to [facility] ER to see if will be admitted and get Gastro eval there where they have it or I can put in a general referral for the system but that could be anywhere in the system including main campus. Edwina Rc HERNANDEZ 02/20/2020 10:43 AM Signed Pt calls back and is very upset because she said she has no one to take her to [place]. She said when she goes to [facility] the y just drug her [...] Crying. She cannot get transport ation to [facility]. Insurance does not cover [facility] and do es not want to go back to [place] because they will just send h er home with meds and dope me up for 3-4 days. Johnathon SOTELO cannot get her an appointment until March . Will route to clerical gastro for schedu ling within [facility]. Marcelino Mejia MD 02/20/2020 12:34 PM Signed noted Augustina Vera RN PLAYGROUND OFFICIAL.JAKI 02/20/2020 12:40 PM Signed I'd suggest that she go to [place] ED today. it w ould not be [...] she has no way of getting to [facility]. Pt states she does not th ink they take her insurance either. Spoke with PCP who suggested [facility]. Relayed message to pt, pt started yelling stating she has no transp ortation. States if she calls ambulance they will only take her within [facility]. Sta los her boyfriend can't [...] illness. Asking letter to be faxed to [phone]. Marcelino Mejia MD 02/20/2020 2:38 PM Signed Let patient know ER report from 02/18/2020 was reviewed and th e ER Physician wanted to keep but she preferred to go home and see if she c ould manage it there. Lorenzo Vu 02/20/2020 4:06 PM Signed Patient returned call, stating she went to [facility] ER today an d they discharged her because her level is less than 800. Reques ting something for pain, that Percocet helped some in past. No transportation to go anywhe re but [place] (?public health social worker to help with transportat [...] doctor. In regards to her letter for [place] [employer] karsten what I [...] Signed Letter ready to be faxed to [phone]. Branden Sanders Ma 02/21/2020 8:24 AM Signed [...] Status:Closed by BRANDEN SANDERS MA on 02/21/20 [facility] Normal 02-20-2020 [place] SALLY Martinez ([id number]) 1980 [facility] Date Time Provider Department ([id number]) 02/20/[address] [facility] During your visit today, we recorded the following informati on about you: Melanie Debby HERNANDEZ 02/20/2020 2:25 PM Signed Patient calling wants note sent to PCP, she is currently i n [facility] ER. Patient said she has [...] Encounter Status:Closed by MARCELINO MEJIA on 02/20/20 [facility] on 2020-02-16 [facility] Telephone (UCWSTR) Normal 02-16-2020 [place] SALLY Martinez ([id number]) 1980 [place] Date Time Provider Department ([id number]) 02/16/20 JESSICA JESUS) [facility] During your visit today, we [...] Telephone (FAMPWS) Normal 02-16-2020 [place] SALLY Martinez ([id number]) 1980 [place] Date Time Provider Department ([id number]) 02/16/20 ISABEL ARIAS) RAMA During your visit [...] (METRONIDAZOLE HCL) 03/11/2010 12 - Shortness of [place] th IBUPROFEN 06/18/2016 8 - GI Upset [...] 02/16/20 progress on 2020-02 PROGRESS HNO ID: [id number] Normal 02-15-2020 [facility] Author: Marcelino Mejia [place] ([id number]) Service: ? Author Type: Physician Type: Progress [...] diagnosis: pancreatitis Medication review completed Yes Branden Sadners Ma Provider Documentation: In follow-up of hospitalization, Sally Mcgregor is a 39 yea r old female with the chief complaint of pancreatitis. I have reviewed the patient?s last hospital course including diagnostic testing performed during this hospitalization, their dischar ge medications, and my assessment and plan with the patient and any family members present at today?s visit. Patient was sen in [facility] ER on 02/01/2020 with C/O [...] being home. Patient was seen in the [facility] care yesterday for mouth sor es [...] nosis) - CONSULT TO GASTROENTEROLOGY: [facility] in [place] - Cont prn phenergan. 2. Tongue ulcer [...] 02-15-2020 [facility] activity/Vol] [place] and (28470) Comment: Performed By: #### HBA1C, TS H, LIPNF #### [facility] [address] [place], [place] [address] comp metabolic panel on 2020-02-15 Albumin [Mass/Vol] 4.6 3.9-4.9 g/dL Normal 02-15-2020 [facility] (93980) Comment: Performed By: #### HBA1C, TS H, LIPNF #### [place] [address] [place], [place] [address] ALP [Catalytic activity/Vol] 90 34-123 U/L Normal 0 02-15-2020 [facility] (16255) Comment: Performed By: #### HBA1C, TS H, LIPNF #### [facility] [address] [place], [place] [address] ALT [Catalytic activity/Vol] 6 7-38 U/L Low 0 02-15-2020 [facility] (27708) Comment: Performed By: #### HBA1C, TS H, LIPNF #### [facility] [address] [place], [place] [address] Anion gap [Moles/Vol] 13 9-18 mmol/L Normal 02-15-20 [facility] (03079) Comment: Performed By: #### HBA1C, TS H, LIPNF #### [facility] [address] [place], [place] [address] AST [Catalytic activity/Vol] 20 13-35 U/L Normal 0 02-15-2020 [facility] (30101) Comment: Performed By: #### HBA1C, TS H, LIPNF #### [facility] [address] [place], [place] [address] Bilirubin [Mass/Vol] 0.2 0.2-1.3 mg/dL Normal 0 [facility] (83752) Comment: Performed By: #### HBA1C, TS H, LIPNF #### [facility] [address] [place] [id number] Calcium [Mass/Vol] 10.2 8.5-10.2 mg/dL Normal 02-15-2020 [facility] (16065) Comment: Performed By: #### HBA1C, TS H, LIPNF #### [place] [address] Chloride [Moles/Vol] 100 97-105 mmol/L Normal 0 [facility] (05830) Comment: Performed By: #### HBA1C, TS H, LIPNF #### [facility] [place] [id number] CO2 [Moles/Vol] 26 22-30 mmol/L Normal 02-15-2020 [facility] (72540) Comment: Performed By: #### HBA1C, TS H, LIPNF #### [facility] [place] [id number] Creatinine [Mass/Vol] 0.92 0.58-0.96 mg/dL Normal 02-15-20 20 [facility] [facility] ([address] Comment: Performed By: #### HBA1C, TS H, LIPNF #### [facility] [place] [id number] eGFR- Amer. >60 Normal 02-15-2020 [facility] (39984) Comment: Performed By: #### HBA1C, TS H, LIPNF #### [facility] [address] [place], [place] [address] GFR/1.73 sq M predicted >60 mL/min/{1.73_m2} Normal 02-15-2020 [facility] among non-blacks MDRD [place] ([address]) (S/P/Bld) [Vol rate/Area] Comment: Result Comment: eGFR [...] By: #### HBA1C TS H, LIPNF #### [facility] [address], [place] [address] Glucose [Mass/Vol] 89 74-99 mg/dL Normal 02-15-2020 [facility] (35070) Comment: Result Comment: The English Diabetes Association (ADA) provides guidance for cutoff [...] for diagnosis of diabetes. Reference: Standards of [facility] Care in Diabetes 2016, English Diabetes Association. Diabetes Care. 2016.39(Suppl 1). Performed By: #### HBA1C, TS H, LIPNF #### [facility] [address], [place] [address] Potassium [Moles/Vol] 3.7 3.7-5.1 mmol/L Normal 02-15-20 20 [facility] (30479) Comment: Performed By: #### HBA1C, TS H, LIPNF #### [facility] [address] [place], [place] [address] Protein [Mass/Vol] 7.8 6.3-8.0 g/dL Normal 02-15-2020 [facility] (82666) Comment: Performed By: #### HBA1C, TS H, LIPNF #### [facility] [address] [place], [place] [id number] Sodium [Moles/Vol] 139 136-144 mmol/L Normal 02-15-2020 [facility] (01718) Comment: Performed By: #### HBA1C, TS H, LIPNF #### [facility] [address] [place], [place] [address] Urea nitrogen [Mass/Vol] 9 7-21 mg/dL Normal 02-14 [facility] (06795) Comment: Performed By: #### HBA1C, TS H, LIPNF #### [facility] [address], [place] [address] cnov on 2020-02-15 CNOV Office Visit (FAMPWS) Normal 02-15-[address] [place] [address] [facility] SALLY MCGREGOR ([id number]) 1980 [facility] Date Time Provider Department ([id number]) 02/15/20 2:20 PM MARCELINO MEJIA FAMPWS During [...] at today?s visit. Patient was sen in [facility] ER on 02/01/2020 with C/O [...] being home. Patient was seen in the [facility] care yesterday f or mouth sores [...] diagnosis) - CONSULT TO GASTROENTEROLOGY: [facility] in [place] - Cont prn phenergan. 2. Tongue ulcer [...] (METRONIDAZOLE HCL) 03/11/2010 12 - Shortness of [place] th IBUPROFEN 06/18/2016 8 - GI Upset PREDNISONE 06/18/2016 14 - Other: See Comments Comments: makes agitated and mean Date Reviewed: 02/15/2020 Reviewed by: Marcelino Mejia - Fully Assessed Reason for Visit: Transition Of Care [4074] Cmt: [facility] pancreatitis Reason For Visit History Recorded Primary Visit Diagnosis:Acute pancreatitis without infection or necrosis, unspecified pancreatitis type [K85.90] Other Visit Diagnoses:Tongue ulcer [K14.0] Poor dentition [K08.9] Thrush [B37.0] Order(s):CONSULT TO GASTROENTEROLOGY [9032] Order #: 1 [id number]: 1 FUTURE triamcinolone (KENALOG IN ORABASE) 0.1 [...] Abs Baso 0.07 <0.11 k/uL Normal 02-15-2020 [facility] (51442) Comment: Performed By: #### HBA1C, TS H, LIPNF #### [facility] [address] [place], [place] [address] Abs [place] 0.53 <0.87 k/uL Normal 02-15-2020 [facility] (25056) Comment: Performed By: #### HBA1C, TS H, LIPNF #### [facility] [address] [place], [place] [address] Abs Neut 6.05 1.45-7.50 k/uL Normal 02-15-2020 [facility] (84332) Comment: Performed By: #### HBA1C, TS H, LIPNF #### [facility] [address] [place], [place] [address] Absolute nRBC <0.01 <0.01 Normal 02-15-2020 [facility] (66744) Comment: Performed By: #### HBA1C, TS H, LIPNF #### [facility] [place] [address] Basophils/100 WBC (Bld) 0.7 % Normal 2019 [facility] (19713) Comment: Performed By: #### HBA1C, TS H, LIPNF #### [facility] [address] [place] [address] DTYPE Auto Diff Normal 02-15-2020 [facility] (77670) Comment: Performed By: #### HBA1C, TS H, LIPNF #### [place] [address] Eosinophils (Bld) [#/Vol] 0.38 <0.46 k/uL Normal [facility] (68099) Comment: Performed By: #### HBA1C, TS H, LIPNF #### [facility] [place] [address] Eosinophils/100 WBC (Bld) 3.9 % Normal [facility] (81155) Comment: Performed By: #### HBA1C, TS H, LIPNF #### [facility] [place] [address] Erythrocyte distribution 14.7 11.5-15.0 % Normal 02-14 [facility] width (RBC) [Ratio] [place] ([address]207) Comment: Performed By: #### HBA1C, TS H, LIPNF #### [facility] [address] [place], [place] [address] Hematocrit (Bld) [Volume 40.4 36.0-46.0 % Normal 02-14 [facility] (61847) Comment: Performed By: #### HBA1C, TS H, LIPNF #### [address] [address] Hemoglobin (Bld) 12.0 11.5-15.5 g/dL Normal 02-15-2020 [facility] [Mass/Vol] [place] ([address]) Comment: Performed By: #### HBA1C, TS H, LIPNF #### [place] [address] Lymphocytes (Bld) [#/Vol] 2.77 1.00-4.00 k/uL Normal [facility] (09684) Comment: Performed By: #### HBA1C, TS H, LIPNF #### [address] [address] Lymphocytes/100 WBC (Bld) 28.3 % Normal [facility] (43377) Comment: Performed By: #### HBA1C, TS H, LIPNF #### [address] [address] MCH (RBC) [Entitic mass] 28.6 26.0-34.0 pG Normal 02-14 [facility] (40502) Comment: Performed By: #### HBA1C, TS H, LIPNF #### [address] [address] MCHC (RBC) [Mass/Vol] 29.7 30.5-36.0 g/dL Low 02-15-20 [facility] (99247) Comment: Performed By: #### HBA1C, TS H, LIPNF #### [address], [place] [address] MCV (RBC) [Entitic vol] 96.4 80.0-100.0 fL Normal 02-14 [facility] (47607) Comment: Performed By: #### HBA1C, TS H, LIPNF #### [facility] [address] [place], [place] [address] Monocytes/100 WBC (Bld) 5.4 % Normal 2019 [facility] (75127) Comment: Performed By: #### HBA1C, TS H, LIPNF #### [facility] [address] [place], [place] [address] Neutrophils/100 WBC (Bld) 61.7 % Normal [facility] (45671) Comment: Performed By: #### HBA1C, TS H, LIPNF #### [facility] [address], [place] [address] NRBCs 0.0 0 /100 WBC Normal 02-15-2020 [facility] (27075) Comment: Performed By: #### HBA1C, TS H, LIPNF #### [facility] [address], [place] [address] Platelet mean volume 10.6 9.0-12.7 fL Normal 0 [facility] (Bld) [Entitic vol] [place] ([address]70) Comment: Performed By: #### HBA1C, TS H, LIPNF #### [facility] [address] [place], [place] [address] Platelets (Bld) [#/Vol] 435 150-400 k/uL High 2019 [facility] (61827) Comment: Performed By: #### HBA1C, TS H, LIPNF #### [facility] [address] [place], [place] [address] RBC (Bld) [#/Vol] 4.19 3.90-5.20 m/uL Normal 02-15-2020 [facility] (45474) Comment: Performed By: #### HBA1C, TS H, LIPNF #### [facility] [address] [place], [place] [address] WBC (Bld) [#/Vol] 9.80 3.70-11.00 k/uL Normal 02-15-2020 [facility] (44981) Comment: Performed By: #### HBA1C, TS H, LIPNF #### [facility] [address] [place], [place] [address] amylase on Amylase [Catalytic 52 30-104 U/L Normal 02-15-2020 [facility] activity/Vol] [place] (93667) Comment: Performed By: #### HBA1C, TS H, LIPNF #### [facility] [address] [place], [place] [id number] progress on 2020-02 PROGRESS HNO ID: [id number] Normal 02-14-2020 [facility] Author: Jessica Coppola) [facility] [place] ([address]) Service: ? Author Type: Physician Staff Command And Control Officer Type: Progress Notes Filed: 02/14/2020 1:14 PM Note Text: This note was created using Ob Hospitalist Groupriter. Subjective Sally Mcgregor is a 39 year [...] Benign liver cyst 05/24/2010 CT scan at [facility] 11/2009 and 04/2010 showe 4 mm increase in size . No pain. No elevated LFTs on 03/11/2010. - Calculus of kidney 05/17/[address] Nicolas: Hospitalized age 20, and again later -- no procedures so far ([facility], [facility], 1995 [facility]) - Dysmenorrhea - Impaired fasting [...] MG DAILY September 02, 2019 5:34am 09-02-2019 [facility] (29717) - ondansetron orally disintegrating (ZOFRAN ODT) 4 [...] Approx. 3 cigarettes daily-1 pack every w ak chin Substance Use Topics - Alcohol use: Yes [...] Sp. Request/Comment: - Swab Critical ly 02-14-2020 [facility] abnormal [place] Culture Result - Few Neris glabrata --> ABNORMAL ALERT (95144) Comment: Performed By: #### HBA1C, TS H, LIPNF #### [facility] [address] [place] [address] cnov on 2020-02-14 CNOV Office Visit (UCWSTR) Normal 02-14-20 [place] [facility] SALLY CMGREGOR ([id number]) 1980 [facility] Date Time Provider Department ([id number]) 02/14/20 12:45 PM JESSICA JESUS (CHAZ) UCWSTR [...] Benign liver cyst 05/24/2010 CT scan at [facility] 11/2009 and 04/2010 showe 4 mm increase in size . No pain. No elevated LFTs on 03/11/2010. - Calculus of kidney 05/17/[address] Nicolas: Hospitalized age 20, a nd again later -- no procedures so far ([facility], [facility], 1995 [facility]) - Dysmenorrhea - Impaired fasting [...] DAILY September 02, 2019 5:34am 12-20-2 019 [facility] (51292) - ondansetron orally disintegrating (ZOFRAN ODT) 4 [...] removed - TOTAL ABDOM HYSTERECTOMY 08/31/06 Hysterectomy, [facility] FAMILY HISTORY Problem Relation Age of Onset [...] Approx. 3 cigarettes daily-1 pack every w ak chin Substance Use Topics - Alcohol use: Yes [...] (METRONIDAZOLE HCL) 03/11/2010 12 - Shortness of [place] th IBUPROFEN 06/18/2016 8 - GI Upset [...] mLRfl: 0 FUNGAL SCREEN [SQFUNGSC] Order #: [id number] Prescriptions as of 02/14/2020 Sig: PROMETHAZINE 25 [...] JESUS PA-C on 02/14/20 cnpn on 2020-02-[facility]) Normal 02-13-2020 [place] SALLY Martinez ([id number]) 1980 Donato Mata Date Time Provider Department ([id number]) 02/13/20 MARCELINO MEJIAPWS During your visit today, we recorded the following informati on about you: Christopher Carcamo RN 02/13/2020 10:27 AM Signed Patient reports she was discharged from [facility] yesterday, after a 4 day stay, for pancreatitis. Scheduled f/u visit with PA, for tomorro w. Patient asking note be sent to provider also. Reports she still has a sore on he r tongue, [facility] doctor was not concerned about [...] (METRONIDAZOLE HCL) 03/11/2010 12 - Shortness of [place] th IBUPROFEN 06/18/2016 8 - GI Upset PENICILLINS 12/07/2009 2 - Rash PREDNISONE 06/18/2016 14 - Other: See Comments Comments: makes agitated and mean Date Reviewed: 01/02/2020 Reviewed by: Ashley Lehman Ma - Fully Assessed Reason for Visit: [facility] visit [Other] Prescriptions as of [...] Encounter Status:Closed by ROXANNE PATEL on 02/13/20 [facility] 2020-02-[facility] Normal 02-09-2020 [place] [facility] SALLY MCGREGOR ([id number]) 1980 [facility] Date Time Provider Department ([id number]) 02/09/[address] [facility] During your visit today, we recorded [...] calls back, stating she is currently at [facility] ER. States she had labs [...] 02/09/20 progress on 2020-01 PROGRESS HNO ID: [id number] Normal 02-08-2020 [facility] Author: Isabel Romero) Hugo Mata ([id number]) Service: ? Author Type: Physician Staff Command And Control Officer Type: Progress Notes Filed: 02/08/2020 10:57 AM [...] per patient report who presented to the [facility] ED on 02/01/20 with i [...] seroquel and she has talked with [facility] office for what to do next. She has been taking oxycodone every 4 hours but has not need any yet today. Does mention a sore on her forearm. States getting worse. Red and hardened. 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 States she noticed it first in hospital. She is unable to send picture or have video conference. Is w illing to come to . HISTORY REVIEWED (electronic chart updated): - medical history - medications - allergies REVIEW OF SYSTEMS: As noted in HPI PHYSICAL EXAMINATION: [facility] 08/10/2006 No vitals taken. Deferred [...] minutes progress on 2020-01 PROGRESS HNO ID: [id number] Normal 02-07-2020 [facility] Author: Yvette Huffman RN [place] ([id number]) Service: ? Author Type: ? Type: Progress [...] might be hidden SUMMARY: -Pt discharged from [facility] on 02-05-2020. -Follow up appointment [...] per patient report who presented to the [facility] ED on 02/01/20 with i [...] CNPTOUTREACH Patient Outreach (FAMPWS) Normal 0 02-07-2020 [place] Debra SALLY MCGREGOR ([id number]) 1980 F [facility] Time Provider Department ([id number]) 02/07/20 MARCELINO MEJIA During your visit today, [...] might be hidden SUMMARY: -Pt discharged from [facility] on 02-05-2020. 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 Syndrome, Migraines, Known Lung Nodules, Hx Uteri ne CA, Hx Nephrolithiasis, Tobacco use, Anxiety and Depression with Suspected Bipolar disorder recently starte d on seroquel and sertraline, Recent Dental ev aluation with Infection on clindamycin with planned upcoming removal in 4-6 week s per patient report who presented to the [facility] ED on 02/01/20 with intermittent [...] (METRONIDAZOLE HCL) 03/11/2010 12 - Shortness of [place] th IBUPROFEN 06/18/2016 8 - GI Upset PENICILLINS 12/07/2009 2 - Rash PREDNISONE 06/18/2016 14 - Other: See Comments Comments: makes agitated and mean Date Reviewed: 01/02/2020 Reviewed by: Aslhey Lehman Ma - Fully Assessed Reason for [...] 02/07/20 emergency report on 2020-01-28 EMERGENCY REPORT [facility] Normal 01-27 [facility] EMERGENCY ROOM REPORT ([id number]) NAME ACCOUNT SEX AGE ADMIT DISCHARGE PT MED. RECORD# NUMBER DATE DATE TYPE SAM, [id number] F 39 01/20/20 01/21/20 [place] ZHENG [id number] ROOM: ER DATE OF : 1980 DICTATING [...] PHYSICAL EXAMINATION: Physic al examination reveals a ljt-rys-qetkjglke female in no acute distress, resting c [...] plan for transfer to an outside [facility] for further management. Discussed the patient with Dr. Coleman at [facility], who accepted the patient for admission. The patient was transferred to [facility] in stable condition. Dictated By: Ana Alcantar MD 01/21/20 01:30 JOB #: [id number] Transcribed By: thanh 01/21/20 10:04 Electronically signed by: Jennifer Perez MD 01/28/20 00:29 Page 2 of 2 SALLY MCGREGOR Emergency Room Report myco on 2020-01-26 Mycoplasma IgG POS Normal 01-26-2020 [facility] ([place]) (41353) Comment: Result Comment: INTERPRETATI ON OF MYCOPLASMA [...] CBC, ADIF F, ANEU, BMP, GFR #### [place] [address] progress on 2020-01 PROGRESS HNO ID: [id number] Normal 01-25-2020 [facility] Author: Roxanne Patel [place] ([id number]) Service: ? Author Type: Automatic I Threading Machine Feeder Type: Progress Notes Filed: 01/25/2020 7:39 AM Note Text: Te made to get setup. Roxanne Patel MA cnpn on 2020-01-25 CNPN Telephone (FAMPWS) Normal 01-25-2020 [place] [facility] SALLY MCGREGOR ([id number]) 1980 [facility] Date Time Provider Department (06334) 01/25/20 ISABEL ARIAS) [facility] During your visit today, we recorded the following informati on about you: Roxanne Patel MA, MA 01/25/2020 7:39 AM Signed Please help patient get setup for MRI. BROCK Fritz Pss 01/25/2020 11:05 AM Signed Attempted to reach patient and she does not have a voice m ail set up Trying to schedule an MRI of the Brain Milly Green [facility] 01/25/2020 3:35 PM Signed Spoke [...] (METRONIDAZOLE HCL) 03/11/2010 12 - Shortness of [place] th IBUPROFEN 06/18/2016 8 - GI Upset [...] 01/26/20 progress on 2020-01 PROGRESS HNO ID: [id number] Normal 01-24-2020 [facility] Author: Isabel (Pa-Kimmie) Hugo Mata ([id number]) Service: ? Author Type: Physician Staff Command And Control Officer Type: Progress Notes Filed: 01/24/2020 4:03 PM Note Text: DISTANCE HEALTH VISIT This Team Access Model visit is a phone encounter. It requir ed patient-provider interaction for the medical decision making as documented below. No video was used for evaluation of this patient. Patient consents to visit. Patient's location: [place] Chief Complaint No chief complaint on file. [...] patient was to see pain specialist in [facility]. She has missed or cancelled appointments [...] over the weekend. She was transferred to [place] in [place]. Reports n ot available but patient states ECHO and labs were normal. . States she received a phone call from an [place] And was told negative for Covid. But [...] pharmacy. She did receive phone call from drum drier operator last week and w ill be set up for heart monitor. She was suppose to have stress testing done at [facility] today and Carotid US done [...] Benign liver cyst 05/24/2010 CT scan at [facility] 11/2009 and 04/2010 showe 4 mm increase in size . No pain. No elevated LFTs on 03/11/2010. - Calculus of kidney 05/17/[address] Nicolas: Hospitalized age 20, and again later -- no procedures so far ([facility], [facility], 1995 [facility]) - Dysmenorrhea - Impaired fasting [...] removed - TOTAL ABDOM HYSTERECTOMY 08/31/06 Hysterectomy, [facility] Family History FAMILY HISTORY Problem Relation Age [...] MG DAILY September 02, 2019 5:34am 09-02-2019 [facility] ([id number]) - ondansetron orally disintegrating (ZOFRAN ODT) 4 [...] mg capsule Take 1 capsule by mo sch daily at bedtime for 90 days. - [...] Approx. 3 cigarettes daily-1 pack every w ak chin Substance Use Topics - Alcohol use: Yes [...] - ICD9: 786.59, ICD10: R07.89 Continue with drum drier operator. 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 This test was developed and its performance characteristics determined by [facility]'s Johnnie Abreu Pathology and Laboratory Medicine [employer]. This test has bee n authorized by [...] issued on November 12, 2019. Performed By: [facility] Diligent Board Member [place] [address] Pickling Machine Operator: Raphael liriano III, M.D. CLIA#: [id number] Phone#: Performed By: #### CBC, ADIF F, ANEU, BMP, GFR #### [place] [address] COVID 19 Source METAL PICKLING EQUIPMENT OPERATOR See Below Normal 01-24-2020 [facility] ([place]) (79852) Comment: Result Comment: Nasopharynge al Swab Performed By: [facility] [place] [address] Pickling Machine Operator: Raphael liriano III, M.D. CLIA#: [id number] Phone#: Performed By: #### CBC, ADIF F, ANEU, BMP, GFR #### [address] [address] myco on 2020-01-23 Mycoplasma IgM Negative Normal 01-23-2020 [facility] ([place]) (50819) Comment: Result Comment: INTERPRETATI ON OF MYCOPLASMA [...] CBC, ADIF F, ANEU, BMP, GFR #### [address] [address] crp on 2020-01-23 CRP [Mass/Vol] 0.57 <=0.80 mg/dL Normal 01-23-2020 [facility] ([place]) (02671) Comment: Performed By: #### CBC, ADIF F, ANEU, BMP, GFR #### [address] [address] cnpn on 2020-01-23 CNPN Telephone (FAMPWS) Normal 01-23-2020 [place] [facility] SALLY MCGREGOR ([id number]) 1980 F [place] Date Time Provider Department ([id number]) 01/23/20 ISABEL ARIAS (MAYA) FAMPWS During your visit today, we recorded the following informati on about you: Lexy Tapia RN 01/23/2020 8:55 AM Signed fyi-Patient calls to report that she went to [facility] with chest pain. Transferred to [facility] and Echo was normal. She will [...] Please reschedule her for later this w ak chin so we have time to get the [...] insurance there is not Uber drivers in [facility] so waiting o n community action and [...] Erythrocyte distribution 14.1 11.5-15.5 % Normal 01-22 [facility] (RBC) [Ratio] [facility] ([place]) (69986) Comment: Performed By: #### CBC, ADIF F, ANEU, BMP, GFR #### [address] [address] Hematocrit (Bld) [Volume 35.6 34.0-46.0 % Normal 01-22 [facility] fraction] ([place]) (0000 0) Comment: Performed By: #### CBC, ADIF F, ANEU, BMP, GFR #### [address] [address] Hemoglobin (Bld) 11.9 12.0-16.0 G/dL Low 01-23-2020 [facility] [Mass/Vol] ([place]) (000 00) Comment: Performed By: #### CBC, ADIF F, ANEU, BMP, GFR #### [address] [address] MCH (RBC) [Entitic mass] 30.0 27.0-33.0 pg Normal 01-22 [facility] ([place]) (0000 0) Comment: Performed By: #### CBC, ADIF F, ANEU, BMP, GFR #### [address] [address] MCHC (RBC) [Mass/Vol] 33.4 32.0-36.0 G/dL Normal 01-23-20 20 [facility] ([place]) (0000 0) Comment: Performed By: #### CBC, ADIF F, ANEU, BMP, GFR #### [address] [address] MCV (RBC) [Entitic vol] 89.8 80.0-99.0 fL Normal 2019 [facility] ([place]) (0000 0) Comment: Performed By: #### CBC, ADIF F, ANEU, BMP, GFR #### [place] [id number] Platelet mean volume 8.5 6.6-10.5 fL Normal 0 [facility] (Bld) [Entitic vol] ([place]) (14124) Comment: Performed By: #### CBC, ADIF F, ANEU, BMP, GFR #### [address] [address] Platelets (Bld) [#/Vol] 235 150-450 10 3/mcL Normal 2019 [facility] ([place]) (00035) Comment: Performed By: #### CBC, ADIF F, ANEU, BMP, GFR #### [address] [address] RBC (Bld) [#/Vol] 3.97 4.10-5.30 10 6/mcL Low 01-23-2020 [facility] ([place]) (0000 0) Comment: Performed By: #### CBC, ADIF F, ANEU, BMP, GFR #### [address] [address] WBC (Bld) [#/Vol] 10.20 4.50-10.80 10 3/mcL Normal 01-23-2020 [facility] ([place]) (27587) Comment: Performed By: #### CBC, ADIF F, ANEU, BMP, GFR #### [address] [address] bmp on 2020-01-23 Creatinine [Mass/Vol] 0.94 0.50-1.20 mg/dL Normal 01-23-20 20 [facility] ([place]) (38337) Comment: Performed By: #### CBC, ADIF F, ANEU, BMP, GFR #### [address] [address] Urea nitrogen/Creatinine 20.2 10.0-22.0 ratio Normal 01-22 [facility] [Mass ratio] [facility] ([place]) ([address]219) Comment: Performed By: #### CBC, ADIF F, ANEU, BMP, GFR #### [address] [address] Calcium [Mass/Vol] 9.4 8.4-10.1 mg/dL Normal 01-23-2020 [facility] ([place]) (0000 0) Comment: Performed By: #### CBC, ADIF F, ANEU, BMP, GFR #### [address] [address] Chloride [Moles/Vol] 106 98-110 mEq/L Normal 0 [facility] ([place]) (0000 0) Comment: Performed By: #### CBC, ADIF F, ANEU, BMP, GFR #### [address] [address] CO2 [Moles/Vol] 28 22-32 mEq/L Normal 01-23-2020 [facility] ([place]) (86967) Comment: Performed By: #### CBC, ADIF F, ANEU, BMP, GFR #### [address] [address] Electrolyte Balance 6.0 4.0-15.0 mEq/L Normal 01-23-2020 [facility] ([place]) (0000 0) Comment: Performed By: #### CBC, ADIF F, ANEU, BMP, GFR #### [address] [address] Glucose [Mass/Vol] 91 70-110 mg/dL Normal 01-23-2020 [facility] ([place]) (05402) Comment: Performed By: #### CBC, ADIF F, ANEU, BMP, GFR #### [address] [address] Potassium [Moles/Vol] 4.2 3.5-5.0 mEq/L Normal 01-23-20 20 [facility] ([place]) (0000 0) Comment: Performed By: #### CBC, ADIF F, ANEU, BMP, GFR #### [address] [address] Sodium [Moles/Vol] 140 136-145 mEq/L Normal 01-23-2020 [facility] ([place]) (00209) Comment: Performed By: #### CBC, ADIF F, ANEU, BMP, GFR #### [address] [address] Urea nitrogen [Mass/Vol] 19.0 8.0-22.0 mg/dL Normal 01-22 [facility] ([place]) (81617) Comment: Performed By: #### CBC, ADIF F, ANEU, BMP, GFR #### [address] [address] .morph on 2020-01-13 1 Platelets (Bld) [#/Vol] Normal Normal 2019 [facility] ([place]) (08035) Comment: Result Comment: Few large pl atelets seen. Performed By: #### CBC, ADIF F, ANEU, BMP, GFR #### [address] [address] RBC morphology finding Nom Normal Normal [facility] (d) ([place]) (0000 0) Comment: Performed By: #### CBC, ADIF F, ANEU, BMP, GFR #### [address] [address] .manual diff on -01-22 Basophil %, Manual 0.0 0.0-2.5 % Normal 01-23-2020 [facility] ([place]) (28229) Comment: Performed By: #### CBC, ADIF F, ANEU, BMP, GFR #### [address] [address] Basophil, Abs Manual 0.00 0.00-0.27 10 3/mcL Normal 0 [facility] ([place]) (11124) Comment: Performed By: #### CBC, ADIF F, ANEU, BMP, GFR #### [address] [address] Cells Counted 100 Normal 01-23-2020 [facility] ([place]) (75309) Comment: Performed By: #### CBC, ADIF F, ANEU, BMP, GFR #### [address] [address] Eosinophil %, Manual 0.0 0.0-6.0 % Normal 0 [facility] ([place]) (99281) Comment: Performed By: #### CBC, ADIF F, ANEU, BMP, GFR #### [address] [address] Eosinophil, Abs Manual 0.00 0.00-0.65 10 3/mcL Normal 020 [facility] ([place]) (40190) Comment: Performed By: #### CBC, ADIF F, ANEU, BMP, GFR #### [place] [address] Lymphocyte %, Manual 16.0 20.0-40.0 % Low 0 [facility] ([place]) (95766) Comment: Performed By: #### CBC, ADIF F, ANEU, BMP, GFR #### [address] [address] Lymphocyte, Abs Manual 1.63 0.90-4.32 10 3/mcL Normal 020 [facility] ([place]) (97839) Comment: Performed By: #### CBC, ADIF F, ANEU, BMP, GFR #### [place] [id number] Monocyte %, Manual 5.0 2.0-13.0 % Normal 01-23-2020 [facility] ([place]) (92965) Comment: Performed By: #### CBC, ADIF F, ANEU, BMP, GFR #### [place] [id number] Monocyte, Abs Manual 0.51 0.09-1.40 10 3/mcL Normal 0 [facility] ([place]) (68523) Comment: Performed By: #### CBC, ADIF F, ANEU, BMP, GFR #### [address] [address] Neutrophil %, Manual 79.0 50.0-75.0 % High 0 [facility] ([place]) (43950) Comment: Performed By: #### CBC, ADIF F, ANEU, BMP, GFR #### [place] [address] Neutrophil, Abs Manual 8.06 2.25-8.10 10 3/[facility] Normal 020 [facility] ([place]) (88451) Comment: Performed By: #### CBC, ADIF F, ANEU, BMP, GFR #### [address] [address] .gfr on 2020-01-23 GFR >60 Normal 0 [facility] ([place]) (49560) Comment: Result Comment: GFR Population mean for Afri can English, Non- Americans Ages 20-29 = 116 mL/min/1.73 [...] CBC, ADIF F, ANEU, BMP, GFR #### [place] [address] GFR Non- >60 Normal 01-22 -2019 [facility] ([place]) (54791) Comment: Result Comment: GFR Population mean for Afri can English, Non- Americans Ages 20-29 = 116 mL/min/1.73 [...] CBC, ADIF F, ANEU, BMP, GFR #### [address] [address] spag on 2020-01-22 SPAG . Normal 01-22-2020 Critical access hospital - Microbiology [facility] ([facility] (62964) PROCEDURE: Streptococcus Pneumoniae Urine Antig [^1 *1] [...] Locations *1: This test was performed at: [facility], [address] [place] [address], [address]- , [place] Comment: Performed By: #### CBC, ADIF F, ANEU, BMP, GFR #### [address] [address] respid on 2020-01-13 0 Adenovirus Not Detected Not Detected Normal 01-22-2020 [facility] ([place]) (0000 0) Comment: Performed By: #### CBC, ADIF F, ANEU, BMP, GFR #### [address] [address] Bordetella Not Detected Not Detected Normal 01-22-2020 [facility] Parapertussis Found[facility] tion ([place]) (29928) Comment: Performed By: #### CBC, ADIF F, ANEU, BMP, GFR #### [address] [address] Bordetella Pertussis Not Detected Not Detected Normal [facility] ([place]) (79356) Comment: Performed By: #### CBC, ADIF F, ANEU, BMP, GFR #### [address] [address] Chlamydophila Not Detected Not Detected Normal 01-22-2020 [facility] pneumoniae Foundatio n ([place]) (13398) Comment: Performed By: #### CBC, ADIF F, ANEU, BMP, GFR #### [address] [address] Coronavirus 229E Not Detected Not Detected Normal [facility] (Not COVID-19) Found ation ([place]) (02823) Comment: Performed By: #### CBC, ADIF F, ANEU, BMP, GFR #### [address] [address] Coronavirus HKU1 Not Detected Not Detected Normal 020 [facility]Not COVID-19[facility] (61678[facility] Comment: Performed By: #### CBC, ADIF F, ANEU, BMP, GFR #### [address] [address] Coronavirus NL63 Not Detected Not Detected Normal 020 [facility] (Not COVID-19) Found ation ([place]) (72603) Comment: Performed By: #### CBC, ADIF F, ANEU, BMP, GFR #### [address] [address] Coronavirus OC43 Not Detected Not Detected Normal 020 [facility] (Not COVID-19) Found ation [place]) (81844) Comment: Performed By: #### CBC, ADIF F, ANEU, BMP, GFR #### [place] [address] Human Metapneumovirus Not Detected Not Detected Normal [facility] ([place]) (90854) Comment: Performed By: #### CBC, ADIF F, ANEU, BMP, GFR #### [place] [address] Influenza A Not Detected Not Detected Normal 01-22-2020 [facility] ([place]) (0000 0) Comment: Performed By: #### CBC, ADIF F, ANEU, BMP, GFR #### [place] [address] Influenza B Not Detected Not Detected Normal 01-22-2020 [facility] ([place]) (0000 0) Comment: Performed By: #### CBC, ADIF F, ANEU, BMP, GFR #### [place] [address] Mycoplasma Not Detected Not Detected Normal 01-22-2020 [facility] pneumoniae Foundatio n ([place]) (46254) Comment: Performed By: #### CBC, ADIF F, ANEU, BMP, GFR #### [place] [address] Parainfluenza 1 Not Detected Not Detected Normal 01-22-20 20 [facility] ([place]) (94472) Comment: Performed By: #### CBC, ADIF F, ANEU, BMP, GFR #### [place] [address] Parainfluenza 2 Not Detected Not Detected Normal 01-22-20 20 [facility] ([place]) (27194) Comment: Performed By: #### CBC, ADIF F, ANEU, BMP, GFR #### [place] [address] Parainfluenza 3 Not Detected Not Detected Normal 01-22-20 [facility] ([place]) (64944) Comment: Performed By: #### CBC, ADIF F, ANEU, BMP, GFR #### [place] [address] Parainfluenza 4 Not Detected Not Detected Normal 01-22-20 [facility] ([place]) (63948) Comment: Performed By: #### CBC, ADIF F, ANEU, BMP, GFR #### [address] [address] Respiratory Not Detected Not Detected Normal 01-22-2020 [facility] Syncytial Virus Foun dation ([place]) (04834) Comment: Performed By: #### CBC, ADIF F, ANEU, BMP, GFR #### [address] [address] Rhinovirus/Enterovirus Not Detected Not Detected Normal 0 01-22-2020 [facility] ([place]) (63644) Comment: Performed By: #### CBC, ADIF F, ANEU, BMP, GFR #### [address] [address] sonali on 2020-01-22 SONALI . Normal 01-22-2020 [facility] MICRO - Microbiology [facility] ([place]) (21853) PROCEDURE: Legionella Urine Ag [*1] SOURCE: Urine [...] Locations *1: This test was performed at: [facility], [address] [place] [address], [address]- , [place] Comment: Performed By: #### CBC, ADIF F, ANEU, BMP, GFR #### [address] [address] ldh on 2020-01-22 LDH 194 120-246 U/L Normal 01-22-2020 [facility]) (69071) Comment: Performed By: #### CBC, ADIF F, ANEU, BMP, GFR #### [facility] [address] [place] [address] fib on 2020-01-22 Fibrinogen 414 250-550 mg/dL Normal 01-22-2020 [facility] ([place]) (36898) Comment: Performed By: #### CBC, ADIF F, ANEU, BMP, GFR #### [facility] [address] [place] [address] ferr on 2020-01-22 Ferritin [Mass/Vol] 40 8-252 ng/mL Normal 01-22-2020 [facility] ([place]) (12316) Comment: Performed By: #### CBC, ADIF F, ANEU, BMP, GFR #### [facility] [address] [place] [address] dimer on 2020-01-22 Fibrin D-dimer FEU IA <200 0-230 ug/mL Normal 01-22-20 20 [facility] (d) [Mass/Vol] ([place] ) (73829) Comment: Result Comment: Results repo rted in [...] CBC, ADIF F, ANEU, BMP, GFR #### [facility] [address] [place] [address] [address] angiography chest w/contrast on 2020-01-22 CT ANGIOGRAPHY ORIGINAL Normal 01-22-2020 [facility] CHEST W/CONTRAST CT PULMONARY ANGIOGRAM WITH IV CONTRAST: with post-processing, volume rendering and 3-D acquisitions. This exam was performed according to our departmental dose optimization program, and includes the [facility] ([place]) llowing measures where appli cable: automated exposure control, adjustment of the mAs and/or kVp according to patient size and/or exam, and an iterative reconstruction algorithm. Patient received 13 hour (88678) contrast allergy preparation. CLINICAL STATEMENT: elevated d [...] Erythrocyte distribution 13.7 11.5-15.5 % Normal 01-21 [facility] width (RBC) [Ratio] Foundation ([place]) (70314) Comment: Performed By: #### CBC, ADIF F, ANEU, BMP, GFR #### [facility] [address] [place] [address] Hematocrit (Bld) [Volume 36.0 34.0-46.0 % Normal 01-21 [facility] fraction] ([place]) (0000 0) Comment: Performed By: #### CBC, ADIF F, ANEU, BMP, GFR #### [place] [address] Hemoglobin (Bld) 11.9 12.0-16.0 G/dL Low 01-22-2020 [facility] [Mass/Vol] ([place]) (000 00) Comment: Performed By: #### CBC, ADIF F, ANEU, BMP, GFR #### [place] [address] MCH (RBC) [Entitic mass] 29.6 27.0-33.0 pg Normal 01-21 [facility] ([place]) (0000 0) Comment: Performed By: #### CBC, ADIF F, ANEU, BMP, GFR #### [place] [address] MCHC (RBC) [Mass/Vol] 33.0 32.0-36.0 G/dL Normal 01-22-20 20 [facility] ([place]) (0000 0) Comment: Performed By: #### CBC, ADIF F, ANEU, BMP, GFR #### [place] [address] MCV (RBC) [Entitic vol] 89.8 80.0-99.0 fL Normal 2019 [facility] ([place] (0000 0) Comment: Performed By: #### CBC, ADIF F, ANEU, BMP, GFR #### [place] [address] Platelet mean volume 8.6 6.6-10.5 fL Normal 0 [facility] (Bld) [Entitic vol] ([place]) (97258) Comment: Performed By: #### CBC, ADIF F, ANEU, BMP, GFR #### [place] [id number] Platelets (Bld) [#/Vol] 269 150-450 10 3/mcL Normal 2019 [facility] ([place]) (14901) Comment: Performed By: #### CBC, ADIF F, ANEU, BMP, GFR #### [address] [address] RBC (Bld) [#/Vol] 4.01 4.10-5.30 10 6/mcL Low 01-22-2020 [facility] [place] (0000 0) Comment: Performed By: #### CBC, ADIF F, ANEU, BMP, GFR #### [address] [address] WBC (Bld) [#/Vol] 12.20 4.50-10.80 10 3/mcL High 01-22-2020 [facility] ([place]) (0000 0) Comment: Performed By: #### CBC, ADIF F, ANEU, BMP, GFR #### [address] [address] bmp on 2020-01-22 Calcium [Mass/Vol] 9.5 8.4-10.1 mg/dL Normal 01-22-2020 [facility] ([place]) (0000 0) Comment: Performed By: #### CBC, ADIF F, ANEU, BMP, GFR #### [place] [id number] Chloride [Moles/Vol] 106 98-110 mEq/L Normal 0 [facility] ([place]) (0000 0) Comment: Performed By: #### CBC, ADIF F, ANEU, BMP, GFR #### [address] [address] CO2 [Moles/Vol] 24 22-32 mEq/L Normal 01-22-2020 [facility] ([place]) (05426) Comment: Performed By: #### CBC, ADIF F, ANEU, BMP, GFR #### [address] [address] Creatinine [Mass/Vol] 0.76 0.50-1.20 mg/dL Normal 01-22-20 20 [facility] ([place]) (82682) Comment: Performed By: #### CBC, ADIF F, ANEU, BMP, GFR #### [address] [address] Electrolyte Balance 6.0 4.0-15.0 mEq/L Normal 01-22-2020 [facility] ([place]) (0000 0) Comment: Performed By: #### CBC, ADIF F, ANEU, BMP, GFR #### [address] [address] Glucose [Mass/Vol] 149 70-110 mg/dL High 01-22-2020 [facility] ([place]) (21876) Comment: Performed By: #### CBC, ADIF F, ANEU, BMP, GFR #### [address] [address] Potassium [Moles/Vol] 4.1 3.5-5.0 mEq/L Normal 01-22-20 [facility] ([place]) (0000 0) Comment: Performed By: #### CBC, ADIF F, ANEU, BMP, GFR #### [address] [address] Sodium [Moles/Vol] 136 136-145 mEq/L Normal 01-22-2020 [facility] ([place]) (97496) Comment: Performed By: #### CBC, ADIF F, ANEU, BMP, GFR #### [address] [address] Urea nitrogen [Mass/Vol] 12.0 8.0-22.0 mg/dL Normal 01-21 [facility] ([place]) (99789) Comment: Performed By: #### CBC, ADIF F, ANEU, BMP, GFR #### [address] [address] Urea nitrogen/Creatinine 15.8 10.0-22.0 ratio Normal 01-21 [facility] [Mass ratio] Foundat ion ([place]) (58238) Comment: Performed By: #### CBC, ADIF F, ANEU, BMP, GFR #### [address] [address] .neuabs on Neutrophils (Bld) 10.70 2.25-8.10 10 3/mcL High 01-22-2020 [facility] [#/Vol] [facility] ([place]) (89973) Comment: Performed By: #### CBC, ADIF F, ANEU, BMP, GFR #### [address] [address] .gfr on 2020-01-22 GFR Non- >60 Normal 01-21 [facility] ([place]) (21191) Comment: Result Comment: GFR Population mean for Afri can English, Non- Americans Ages 20-29 = 116 mL/min/1.73 [...] CBC, ADIF F, ANEU, BMP, GFR #### [place] [id number] GFR >60 Normal 0 [facility] ([place]) (96808) Comment: Result Comment: GFR Population mean for Afri can English, Non- Americans Ages 20-29 = 116 mL/min/1.73 [...] CBC, ADIF F, ANEU, BMP, GFR #### [address] [address] .auto diff on 01-21 Ammonia (P) [Mass/Vol] 0.30 0.09-1.40 10 3/mcL Normal 01-21-2 020 [facility] ([place]) (43061) Comment: Performed By: #### CBC, ADIF F, ANEU, BMP, GFR #### [address] [address] Basophils (Bld) 0.00 0.00-0.27 10 3/mcL Normal 01-22-2020 [facility] [#/Vol] [facility] ([place]) (44312) Comment: Performed By: #### CBC, ADIF F, ANEU, BMP, GFR #### [address] [address] Basophils/100 WBC (Bld) 0.3 0.0-2.5 % Normal 2019 [facility] ([place]) (0000 0) Comment: Performed By: #### CBC, ADIF F, ANEU, BMP, GFR #### [address] [address] Eosinophils (Bld) 0.00 0.00-0.65 10 3/mcL Normal 01-22-2020 [facility] [#/Vol] [facility] ([place]) (17489) Comment: Performed By: #### CBC, ADIF F, ANEU, BMP, GFR #### [address] [address] Eosinophils/100 WBC (Bld) 0.1 0.0-6.0 % Normal 01-12 0 [facility] ([place]) (0000 0) Comment: Performed By: #### CBC, ADIF F, ANEU, BMP, GFR #### [address] [address] Lymphocytes (Bld) 1.10 0.90-4.32 10 3/mcL Normal 01-22-2020 [facility] [#/Vol] [facility] ([place]) (16853) Comment: Performed By: #### CBC, ADIF F, ANEU, BMP, GFR #### [address] [address] Lymphocytes/100 WBC (Bld) 9.3 20.0-40.0 % Low - 0-2019 [facility] ([place]) (0000 0) Comment: Performed By: #### CBC, ADIF F, ANEU, BMP, GFR #### [address] [address] Monocytes/100 WBC (Bld) 2.2 2.0-13.0 % Normal 2019 [facility] ([place]) (0000 0) Comment: Performed By: #### CBC, ADIF F, ANEU, BMP, GFR #### [address] [address] Neutrophils/100 WBC (Bld) 88.1 50.0-75.0 % High 01-12 [facility] ([place]) (0000 0) Comment: Performed By: #### CBC, ADIF F, ANEU, BMP, GFR #### [address] [address] urinalysis with microscopy on 2020-01-21 Amorphous NONE Normal 01-21-2020 [facility] (14042) Comment: Performed By: #### [id number] ## ## [facility],[address] [place] [address] Bacteria LM.HPF (Urine sed) 3+ Normal [facility] [#/Area] [facility] ( 50040) Comment: Performed By: #### [id number] ## ## [facility],[address] [place] [address] Bilirubin [Mass/Vol] NEG NORMAL: NEGATIVE mg/dL Normal [facility] ospital (66170) Comment: Performed By: #### [id number] ## ## [facility],[address] [place] [address] Blood 10 NORMAL: NEGATIVE Abnormal 01-21-2020 [facility] (00627) Comment: Performed By: #### [id number] ## ## [facility],[address] [place] [address] Casts LM.LPF (Urine sed) NONE Normal 01-20 [facility] [#/Area] [facility] ( 57088) Comment: Performed By: #### [id number] ## ## [facility],[address] [place] [address] Clarity (U) sl.cloudy NORMAL: CLEAR Normal 01-21-2020 [facility] ( 73160) Comment: Performed By: #### [id number] ## ## [facility],[address] [place] [address] Color (U) p.yel NORMAL: YELLOW Normal 01-21-2020 [facility] (46829) Comment: Performed By: #### [id number] ## ## [facility],[address] [place] [address] Crystals LM Nom (Urine sed) NONE Normal [facility] ( 71252) Comment: Performed By: #### [id number] ## ## [facility] [place] [address] Epi Cells MANY Normal 01-21-2020 [facility] (99901) Comment: Performed By: #### [id number] ## ## [facility] [place] [address] Glucose [Mass/Vol] NORM NORMAL: NORMAL Normal 2019 [facility] ( 95144) Comment: Performed By: #### [id number] ## ## [facility] [place] [address] Ketone NEG NORMAL: NEGATIVE Normal 01-21-2020 [facility] (62469) Comment: Performed By: #### [id number] ## ## [facility] [place] [address] Mucous NONE Normal 01-21-2020 [facility] (32264) Comment: Performed By: #### [id number] ## ## [facility] [place] [address] 230[address] Nitrite Ql (U) NEG NORMAL: NEGATIVE Normal 01-21-20 [facility] ( 31891) Comment: Performed By: #### [id number] ## ## [facility],[address] [place] [address] pH (Bld) 5 NORMAL: 5.0-8.0 Normal 01-21-2020 [facility] (06772) Comment: Performed By: #### [id number] ## ## [facility],[address] [place] [address] Protein (U) NEG NORMAL: NEGATIVE mg/dL Normal 01-21-2020 [facility] [Mass/Vol] [facility] (67739) Comment: Performed By: #### [id number] ## ## [facility],[address] [place] [address] Rbc 0-5 0-3 / hpf Normal 01-21-2020 [facility] (31766) Comment: Performed By: #### [id number] ## ## [facility],[address] [place] [address] Sp Pony 1.020 NORMAL: 1.010-1.030 Normal 0 [facility] ( 18460) Comment: Performed By: #### [id number] ## ## [facility],[address] [place] [address]70 Specimen type Nom (Spec) UNSPECIFIED Normal [facility] ( 39420) Comment: Performed By: #### [id number] ## ## [facility],[address] [place] [address] URINALYSIS WITH MICROSCOPY Normal [facility] (99972) Comment: Result Comment: URINALYSIS Performed By: #### [id number] ## ## [facility],[address] [place] [address] Urobilinog NORM NORMAL: NORMAL Normal 01-21-2020 [facility] (93973) Comment: Performed By: #### [id number] ## ## [facility],[address] [place] [address] Wbc 1-5 0-5 / hpf Normal 01-21-2020 [facility] (13423) Comment: Performed By: #### [id number] ## ## [facility],[address] [place] [address] WBC (Bld) [#/Vol] NEG NORMAL: NEGATIVE 10*3/uL Normal 01-20 [facility] (96490) Comment: Result Comment: URINE MICROS COPIC Performed By: #### [id number] ## ## [facility],[address] [place] [address] 49593 Yeast LM Ql (Urine sed) NONE Normal 2019 [facility] (78607) Comment: Performed By: #### [id number] ## ## [facility],[address] [place] [address] troponin on 2020-01 Troponin I.cardiac <0.01 0.00 - 0.05 ng/mL Normal 0 [facility] [Mass/Vol] [facility] (24425) Comment: Result Comment: Elevated tro ponin (above [...] as heterophile antibodi es). Performed By: #### [id number] ## ## [facility],[address] [place] [address] tropi on 2020-01-21 Troponin I.cardiac <0.015 0.000-0.040 ng/mL Normal 0 [facility] [Mass/Vol] [facility] [place] (99639) Comment: Result Comment: Troponin I r eference ranges (05/22/14): 0.00-0.040 ng/mL Negative an d non-diagnostic. >0.040 ng/mL Consistent with cardiac damage, increased clinical risk and possibility of myocardial in farction. Serial measurements, a rise & fall in test results, clinical histo ry, appropriate symptoms and/or ECG changes may help assess possibility of IN. *Other non-acute coronary sy ndrome conditions such as CHF, myoc arditis, pulmonary emboli, sepsis and cardiac surgery could result in myoc ardial damage and increased troponi n levels. Performed By: #### TROPI ### # [place] [address] serum qual on 2020-01-21 EXTERNAL QC DONE? YES Normal 01-21-[address] [facility] (07083) Comment: Performed By: #### [id number] ## ## [facility],[address] [place] [address] INTERNAL QC PASS Normal 01-21-2020 [facility] (58119) Comment: Performed By: #### [id number] ## ## [facility],[address] [place], [place] [id number] SER NEGATIVE NEGATIVE Normal 01-21-2020 [facility] (72878) Comment: Performed By: #### [id number] ## ## [facility],[address] [place] [address] 14319 d-dimer, quantitative on 2020-01-21 D-DIMER QUANT 256 0 - 230 ng/ml High 01-21-2020 [facility] (75440) Comment: Performed By: #### [id number] ## ## [facility],[address] [place] [address] 03923 D-DIMER, QUANTITATIVE Normal 01-21-20 20 [facility] (75681) Comment: Result Comment: QUANT D-DIME R Performed By: #### [id number] ## ## [facility],[address] [place], [place] [id number] ct brain w/o contrast on 2020-01-21 CT BRAIN W/O [facility] Normal 0 [facility] [address] [place] [address] (16890) Patient: SALLY MCGREGOR Phone#: : 1980 Age: 39 Gender: F Pt. Type: ER Account: [id number] Location: 052 Ordering: DR. ANA ALCANTAR Exam Date: 01/20/202023:41 Family Phys: ISABEL ARIAS Charge Code: [id number] Physician: Trego Order #: [id number] DLP Dose#: [id number] PROCEDURE: CT BRAIN WITHOUT CONTRAST COMPARISON: [facility], CT, BRAIN W/O CON, 01/29/2017, 22:39. INDICATIONS: [...] 39 Gender: F Pt. Type: ER Account: [id number] Location: 052 Ordering: DR. ANA ALCANTAR Exam Date: 01/20/2020/23:41 Family Phys: ISABEL ARIAS Charge Code: [id number] Physician: Trego Order #: [id number] DLP Dose#: [id number] Approved by: Kelsey Mae MD on 01/21/2020 at 18:04 cmp with egfr on 31-01-09 Age - Reported 39 years Normal 01-21-2020 [facility] (23626) Comment: Performed By: #### [id number] ## ## [facility] [place] [address] 62116 Albumin [Mass/Vol] 4.3 3.4 - 4.8 g/dL Normal 01-21-2020 [facility] ( 77004) Comment: Performed By: #### [id number] ## ## [facility] [place] [address] 05845 Albumin/Globulin [Mass 1.5 0.9 - 1.6 {ratio} Normal 020 [facility]] [facility] (37751) Comment: Performed By: #### [id number] ## ## [facility] [place] [address] 46217 ALK PHOS 71 38 - 126 U/L Normal 01-21-2020 [facility] (67600) Comment: Performed By: #### [id number] ## ## [facility],[address] [place] [address] 59420 ALT/SGPT 11 8 - 35 U/L Normal 01-21-2020 [facility] (68599) Comment: Performed By: #### [id number] ## ## [facility] [place] [address] 37664 Anion gap [Moles/Vol] 12 10 - 20 mmol/L Normal 01-21-20 [facility] ( 33988) Comment: Performed By: #### [id number] ## ## [facility],[address] [place] [address] 64468 AST/SGOT 12 13 - 39 U/L Low 01-21-2020 [facility] (97022) Comment: Performed By: #### [id number] ## ## [facility],[address] [place] [address] 35296 B/C RATIO 19 0 - 30 ratio Normal 01-21-2020 [facility] (75882) Comment: Performed By: #### [id number] ## ## [facility]1 [facility] 77691 Bilirubin [Mass/Vol] 0.3 0.0 - 1.5 mg/dl Normal 0 [facility] ( 75044) Comment: Performed By: #### [id number] ## ## [facility],[address] [place] [address] 17861 Calcium [Mass/Vol] 9.2 8.6 - 10.2 mg/dl Normal 01-21-2020 [facility] ( 42768) Comment: Performed By: #### [id number] ## ## [facility],[address] [place] [address] 23305 Chloride [Moles/Vol] 102 98 - 107 mmol/L Normal 0 [facility] ( 03617) Comment: Performed By: #### [id number] ## ## [facility],[address] [place] [address] 64466 CO2 [Moles/Vol] 25.6 21.0 - 31.0 mmol/L Normal 01-21-2020 [facility] ( 06705) Comment: Performed By: #### [id number] ## ## [facility],[address] [place] [address] 20619 Creatinine [Mass/Vol] 1.1 0.6 - 1.2 mg/dl Normal 01-21-20 20 [facility] ( 63517) Comment: Performed By: #### [id number] ## ## [facility],[address] [place] [address] 01061 GFR/1.73 sq M >60 60 - 999 mL/min/{1.73_m2} Normal 0 [facility] non-blacks MDRD (000 00) (S/P/Bld) [Vol rate/Area] [...] OF AGE AND OLDER. Performed By: #### [id number] ## ## [facility],[address] [place] [address] 06142 GFR/1.73 sq M predicted among Normal 01-21-2020 [facility] non-blacks MDRD (S/P/Bld) [Vol Hospital (41129) rate/Area] Comment: Result Comment: COMPREHENSIV E METABOLIC PANEL Performed By: #### [id number] ## ## [facility],[address] [place] [address] 82827 GFR/1.73 sq M predicted 55 60 - 999 ML/MINUTE Low 2019 [facility] among non-blacks MDRD Hospital (94521) (S/P/Bld) [Vol rate/Area] Comment: Performed By: #### [id number] ## ## [facility],[address] [place] [address] 59297 Globulin (S) [Mass/Vol] 2.9 1.5 - 3.8 G/DL Normal 2019 [facility] ( 70894) Comment: Performed By: #### [id number] ## ## [facility],[address] [place] [address] 32403 Glucose [Mass/Vol] 100 74 - 106 mg/dl Normal 01-21-2020 [facility] ( 66919) Comment: Performed By: #### [id number] ## ## [facility],[address] [place] [address] 10050 Potassium [Moles/Vol] 3.6 3.5 - 5.1 mmol/L Normal 01-21-20 20 [facility] ( 78249) Comment: Performed By: #### [id number] ## ## [facility],[address] [place] [address] 11717 Protein [Mass/Vol] 7.2 6.4 - 8.3 g/dl Normal 01-21-2020 [facility] ( 44780) Comment: Performed By: #### [id number] ## ## [facility] [place] [address] 40326 Sodium [Moles/Vol] 136 136 - 145 mmol/l Normal 01-21-2020 [facility] ( 33641) Comment: Performed By: #### [id number] ## ## [facility] [place] [address] 32255 Urea nitrogen [Mass/Vol] 21 6 - 20 mg/dl High 01-20 [facility] ( 08572) Comment: Performed By: #### [id number] ## ## [facility] [place] [address] 37531 chest 2 views on 31-01-09 CHEST 2 VIEWS [facility] Normal 01-21-20 [facility]ital [address] [place] [address] (41888) Patient: SALLY MCGREGOR Phone#: : 1980 Age: 39 Gender: F Pt. Type: ER Account: [id number] Location: 052 Ordering: DR. ANA ALCANTAR Exam Date: 01/20/2020/23:45 Family Phys: ISABEL ARIAS Charge Code: [id number] Physician: Trego Order #: [id number] DLP Dose#: PROCEDURE: X-RAY CHEST 2 VIEWS COMPARISON: [facility], , CHEST 2 VIEWS, 11/25/2019, 0:08. INDICATIONS: [...] Erythrocyte distribution 13.6 11.5-15.5 % Normal 01-20 [facility] width (RBC) [Ratio] [facility] ([place]) (38571) Comment: Performed By: #### CBC, ADIF F, ANEU, BMP, GFR #### [address] [address] Hematocrit (Bld) [Volume 35.6 34.0-46.0 % Normal 01-20 [facility] fraction] ([place]) (0000 0) Comment: Performed By: #### CBC, ADIF F, ANEU, BMP, GFR #### [address] [address] Hemoglobin (Bld) 11.4 12.0-16.0 G/dL Low 01-21-2020 [facility] [Mass/Vol] ([place]) (000 00) Comment: Performed By: #### CBC, ADIF F, ANEU, BMP, GFR #### [address] [address] MCH (RBC) [Entitic mass] 29.5 27.0-33.0 pg Normal 01-20 [facility] ([place]) (0000 0) Comment: Performed By: #### CBC, ADIF F, ANEU, BMP, GFR #### [address] [address] MCHC (RBC) [Mass/Vol] 32.2 32.0-36.0 G/dL Normal 01-21-20 [facility] ([place]) (0000 0) Comment: Performed By: #### CBC, ADIF F, ANEU, BMP, GFR #### [address] [address] MCV (RBC) [Entitic vol] 91.7 80.0-99.0 fL Normal 2019 [facility] ([place]) (0000 0) Comment: Performed By: #### CBC, ADIF F, ANEU, BMP, GFR #### [place] [address] Platelet mean volume 8.6 6.6-10.5 fL Normal 0 [facility] (Bld) [Entitic vol] ([place]) (19272) Comment: Performed By: #### CBC, ADIF F, ANEU, BMP, GFR #### [place] [address] Platelets (Bld) [#/Vol] 250 150-450 10 3/mcL Normal 2019 [facility] ([place]) (48207) Comment: Performed By: #### CBC, ADIF F, ANEU, BMP, GFR #### [place] [address] RBC (Bld) [#/Vol] 3.88 4.10-5.30 10 6/mcL Low 01-21-2020 [facility] ([place]) (0000 0) Comment: Performed By: #### CBC, ADIF F, ANEU, BMP, GFR #### [place] [address] WBC (Bld) [#/Vol] 6.20 4.50-10.80 10 3/mcL Normal 01-21-2020 [facility] ([place]) (50174) Comment: Performed By: #### CBC, ADIF F, ANEU, BMP, GFR #### [place] [address] cbc + diff on 01-20 Basophils (Bld) 0.10 0.00 - 0.10 x10EE3/UL Normal 01-21-2020 [facility] [#/Vol] [facility] (70059) Comment: Performed By: #### [id number] ## ## [facility],[address] [place] [address] 52982 Basophils/100 WBC (Bld) 1.1 0.0 - 2.0 % Normal 2019 [facility] ( 90654) Comment: Performed By: #### [id number] ## ## [facility],[address] [place] [address] 74211 CBC + DIFF Normal 01-21-2020 [facility] (59196) Comment: Result Comment: CBC-COMPLETE BLOOD COUNT Performed By: #### [id number] ## ## [facility],[address] [place], [place] [address] Eosinophils (Bld) 0.40 0.00 - 0.50 x10EE3/UL Normal 01-21-2020 [facility] [#/Vol] [facility] (34141) Comment: Performed By: #### [id number] ## ## [place] [id number] Eosinophils/100 WBC (Bld) 5.5 0.0 - 7.0 % Normal [facility] ( 54081) Comment: Performed By: #### [id number] ## ## [address] [address] Erythrocyte distribution 13.5 12.0 - 15.6 % Normal [facility] width (RBC) [Ratio] [facility] (71398) Comment: Performed By: #### [id number] ## ## [address] [address] Hematocrit (Bld) [Volume 33.8 34.0 - 46.0 % Low [facility] fraction] [facility] ( 16233) Comment: Performed By: #### [id number] ## ## [address] [address] Hemoglobin (Bld) 11.7 12.0 - 16.0 g/dl Low 01-21-2020 [facility] [Mass/Vol] [facility] (85836) Comment: Performed By: #### [id number] ## ## [address],[place] [address] Lymphocytes (Bld) 2.30 0.80 - 2.80 x10EE3/UL Normal 01-21-2020 [facility] [#/Vol] [facility] (08642) Comment: Performed By: #### [id number] ## ## [place] [id number] Lymphocytes/100 WBC (Bld) 30.4 20.0 - 45.0 % Normal [facility] ( 57531) Comment: Performed By: #### [id number] ## ## [address] [address] MANUAL DIFF N/A Normal 01-21-2020 [facility] (48683) Comment: Performed By: #### [id number] ## ## [address] [address] MCH (RBC) [Entitic mass] 31 27 - 33 pg Normal 01-20 [facility] ( 34237) Comment: Performed By: #### [id number] ## ## [address] [address] MCHC (RBC) [Mass/Vol] 35 32 - 36 X10 3 Normal 01-21-20 20 [facility] ( 40934) Comment: Performed By: #### [id number] ## ## [address] [address] MCV (RBC) [Entitic vol] 88 80 - 99 fl Normal 2019 [facility] ( 93260) Comment: Performed By: #### [id number] ## ## [address] [address] Monocytes (Bld) 0.50 0.20 - 1.00 x10EE3/UL Normal 01-21-2020 [facility] [#/Vol] [facility] (18219) Comment: Performed By: #### [id number] ## ## [facility],[address] [place] [address] 89348 MONOS % 6.5 0.0 - 10.0 % Normal 01-21-2020 [facility] (39816) Comment: Performed By: #### [id number] ## ## [facility],[address] [place] [address] 98593 Morphology Adrian (Bld) [Interp] N/A Normal 01-21-2020 [facility] ( 13648) Comment: Performed By: #### [id number] ## ## [facility],[address] [place] [address] 03640 Neutrophils (Bld) 4.30 1.50 - 7.10 x10EE3/UL Normal 01-21-2020 [facility] [#/Vol] [facility] (50306) Comment: Performed By: #### [id number] ## ## [facility],[address] [place] [address] 51529 Neutrophils/100 WBC (Bld) 56.5 46.0 - 76.0 % Normal [facility] ( 95519) Comment: Performed By: #### [id number] ## ## [facility],[address] [place] [address] 49665 Platelet mean volume 8.3 6.6 - 10.5 fl Normal 01-21-20 20 [facility] (Bld) [Entitic vol] [facility] (20604) Comment: Result Comment: AUTOMATED DI FFERENTIAL Performed By: #### [id number] ## ## [facility],[address] [place] [address] 20239 Platelets (Bld) 298 150 - 450 x10EE3/UL Normal 01-21-2020 [facility] [#/Vol] [facility] (39080) Comment: Performed By: #### [id number] ## ## [facility],[address] [place] [address] 51697 RBC (Bld) [#/Vol] 3.82 4.10 - 5.30 x 10EE6/UL Low 0 [facility] ( 67116) Comment: Performed By: #### [id number] ## ## [facility],[address] [place] [address] 12696 WBC (Bld) [#/Vol] 7.6 4.5 - 10.8 x 10EE3/UL Normal 01-21-2020 [facility] ( 11069) Comment: Performed By: #### [id number] ## ## [facility],[address] [place] [address] 20469 bmp on 2020-01-21 Creatinine [Mass/Vol] 0.96 0.50-1.20 mg/dL Normal 01-21-20 20 [facility] ([place]) (10793) Comment: Performed By: #### CBC, ADIF F, ANEU, BMP, GFR #### [address] [address] Urea nitrogen/Creatinine 18.8 10.0-22.0 ratio Normal 01-20 [facility] [Mass ratio] [facility] ([place]) (10640) Comment: Performed By: #### CBC, ADIF F, ANEU, BMP, GFR #### [address] [address] Calcium [Mass/Vol] 8.7 8.4-10.1 mg/dL Normal 01-21-2020 [facility] ([place]) (0000 0) Comment: Performed By: #### CBC, ADIF F, ANEU, BMP, GFR #### [address] [address] Chloride [Moles/Vol] 108 98-110 mEq/L Normal 0 [facility] ([place]) (0000 0) Comment: Performed By: #### CBC, ADIF F, ANEU, BMP, GFR #### [address] [address] CO2 [Moles/Vol] 26 22-32 mEq/L Normal 01-21-2020 [facility] ([place]) (34063) Comment: Performed By: #### CBC, ADIF F, ANEU, BMP, GFR #### [place] [address] Electrolyte Balance 4.0 4.0-15.0 mEq/L Normal 01-21-2020 [facility] ([place]) (0000 0) Comment: Performed By: #### CBC, ADIF F, ANEU, BMP, GFR #### [place] [id number] Glucose [Mass/Vol] 85 70-110 mg/dL Normal 01-21-2020 [facility] ([place]) (18812) Comment: Performed By: #### CBC, ADIF F, ANEU, BMP, GFR #### [place] [address] Potassium [Moles/Vol] 4.1 3.5-5.0 mEq/L Normal 01-21-20 [facility]) (0000 0) Comment: Performed By: #### CBC, ADIF F, ANEU, BMP, GFR #### [place] [address] Sodium [Moles/Vol] 138 136-145 mEq/L Normal 01-21-2020 [facility] ([place]) (45206) Comment: Performed By: #### CBC, ADIF F, ANEU, BMP, GFR #### [place] [address] Urea nitrogen [Mass/Vol] 18.0 8.0-22.0 mg/dL Normal 01-20 [facility] ([place]) (31457) Comment: Performed By: #### CBC, ADIF F, ANEU, BMP, GFR #### [address] [address] .neuabs on Neutrophils (Bld) 3.50 2.25-8.10 10 3/mcL Normal 01-21-2020 [facility] [#/Vol] [facility] ([place]) (83130) Comment: Performed By: #### CBC, ADIF F, ANEU, BMP, GFR #### [address] [address] .gfr on 2020-01-21 GFR Non- >60 Normal 01-20 [facility] ([place]) (29139) Comment: Result Comment: GFR Population mean for Afri can English, Non- Americans Ages 20-29 = 116 mL/min/1.73 [...] CBC, ADIF F, ANEU, BMP, GFR #### [address] [address] GFR >60 Normal 0 [facility] ([place]) (14883) Comment: Result Comment: GFR Population mean for Afri can English, Non- Americans Ages 20-29 = 116 mL/min/1.73 [...] CBC, ADIF F, ANEU, BMP, GFR #### [address] [address] .auto diff on 01-20 Ammonia (P) [Mass/Vol] 0.40 0.09-1.40 10 3/mcL Normal 020 [facility] ([place]) (77076) Comment: Performed By: #### CBC, ADIF F, ANEU, BMP, GFR #### [address] [address] Basophils (Bld) 0.00 0.00-0.27 10 3/mcL Normal 01-21-2020 [facility] [#/Vol] [facility] ([place]) (56560) Comment: Performed By: #### CBC, ADIF F, ANEU, BMP, GFR #### [address] [address] Basophils/100 WBC (Bld) 0.5 0.0-2.5 % Normal 2019 [facility] ([place]) (0000 0) Comment: Performed By: #### CBC, ADIF F, ANEU, BMP, GFR #### [address] [address] Eosinophils (Bld) 0.30 0.00-0.65 10 3/mcL Normal 01-21-2020 [facility] [#/Vol] [facility] ([place]) (07988) Comment: Performed By: #### CBC, ADIF F, ANEU, BMP, GFR #### [address] [address] Eosinophils/100 WBC (Bld) 5.4 0.0-6.0 % Normal [facility] ([place]) (0000 0) Comment: Performed By: #### CBC, ADIF F, ANEU, BMP, GFR #### [address] [address] Lymphocytes (Bld) 2.00 0.90-4.32 10 3/mcL Normal 01-21-2020 [facility] [#/Vol] [facility] ([place]) (44572) Comment: Performed By: #### CBC, ADIF F, ANEU, BMP, GFR #### [address] [address] Lymphocytes/100 WBC (Bld) 32.4 20.0-40.0 % Normal 05-0 [facility] ([place]) (68115) Comment: Performed By: #### CBC, ADIF F, ANEU, BMP, GFR #### [address] [address] Monocytes/100 WBC (Bld) 6.1 2.0-13.0 % Normal 2019 [facility] ([place]) (0000 0) Comment: Performed By: #### CBC, ADIF F, ANEU, BMP, GFR #### [facility] [address] [place] [address] Neutrophils/100 WBC (Bld) 55.6 50.0-75.0 % Normal 050 [facility] ([place]) (12372) Comment: Performed By: #### CBC, ADIF F, ANEU, BMP, GFR #### [facility] [address] [place] [address] cnpn on 2020-01-[address] [facility] Normal 01-20-2020 [place] [facility] SALLY MCGREGOR ([id number]) 1980 F [place] Date Time Provider Department (52289) 01/20/20 MARCELINO MEJIA [facility] During your visit today, we recorded the following informati on about you: Christopher Carcamo RN 01/20/2020 11:54 AM Signed Patient asking if Chaz Stroud, would sent AB Rx to [facility], for her bad tooth? Her dentist in [place] is not open. Has an appt with a dentist in [place] on . Has a wound on tongue [...] (METRONIDAZOLE HCL) 03/11/2010 12 - Shortness of [place] th IBUPROFEN 06/18/2016 8 - GI Upset [...] 01/20/20 progress on 2020-01 PROGRESS HNO ID: [id number] Normal 01-16-2020 [facility] Author: Isabel Mata ([id number]) Service: ? Author Type: Physician Staff Command And Control Officer Type: Progress Notes Filed: 01/16/2020 1:43 PM [...] She c/o of daily. Attempted to call [place] [facility] who had 1 visit with [...] testing. 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 In mean time will order stress [...] on 2020-01-16 MORENA Telephone (FAMPWS) Normal 01-16-2020 [place] [facility] SALLY MCGREGOR ([id number]) 1980 [facility] Time Provider Department (91584) 01/16/20 ISABEL ARIAS) RAMA During your visit [...] and/or ibuprofen for pain. Follow-up with her [facility] care physician within the next 3 [...] Chest pain This note was generated with [employer] dictation software. It m ay contain incorrect [...] (METRONIDAZOLE HCL) 03/11/2010 12 - Shortness of [place] IBUPROFEN 06/18/2016 8 - GI Upset [...] Encounter Status:Closed by ISABEL WARE [facility] Normal 01-16-2020 [place] [facility] SALLY MCGREGOR ([id number]) 1980 [facility] Time Provider Department (75202) 01/16/20 ISABEL ARIAS) RAMA During your visit [...] (METRONIDAZOLE HCL) 03/11/2010 12 - Shortness of [place] IBUPROFEN 06/18/2016 8 - GI Upset [...] on 2020-01-11 CNPN Telephone (FAMPWS) Normal 01-11-2020 [place] [facility] SALLY MCGREGOR ([id number]) 1980 F [place] Date Time Provider Department ([id number]) 01/11/20 MARCELINO MEJIA During your visit today, [...] (METRONIDAZOLE HCL) 03/11/2010 12 - Shortness of [place] IBUPROFEN 06/18/2016 8 - GI Upset PENICILLINS 12/07/2009 2 - Rash PREDNISONE 06/18/2016 14 - Other: See Comments Comments: makes agitated and mean Date Reviewed: 01/02/2020 Reviewed by: Ashley Lehman Ma - Fully Assessed Reason for Visit: Patient Question [4637] Reason For Visit History Recorded Prescriptions as [...] on 2020-01-09 CNPN Telephone (FAMPWS) Normal 01-09-2020 [place] [facility] SALLY MCGREGOR ([id number]) 1980 [facility] Date Time Provider Department (98506) 01/09/20 ISABEL ARIAS) [facility] During your visit today, we recorded [...] when taken with s eroquel 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 See if she is willing to [...] by ISABEL WARE on 01/09/20 CNPN Telephone ([facility]) Normal 01-09-2020 [place] [facility] SALLY MCGREGOR ([id number]) 1980 [facility] Date Time Provider Department (18311) 01/09/20 MARCELINO MEJIA During your visit today, [...] she called because she's not really thinking [facility]. Marcelino Mejia MD 01/09/2020 1:31 PM Signed [...] flexeril. Monica t says she cannot take [place] because she is on ok Seroquel and [...] dentist and she said no dentist in [facility] can see her because of her insurance . She tried [place] because they accepted her insurance but they [...] seen by ER or UC, then at [facility] they can see/check for signs of [...] she has called every dentist office in [place] and now [place] and no one takes her insurance. She said she called her insurance and they told her the only one was the one in [place]. I told her if her infection is that bad she needs to go back to ER for further evaluation. Patient then just keep saying I have no way of getting there; no family can take her; she has no money to pay to get there. Patient ended call. I did call Dr. Evans's office oral surgeon [phone] and they are open from 8-3 after day to see patient's and [facility]. They were currently closed but wanting to find out if they accept her insurance. ISABEL ARIAS PA-C 01/10/2020 7:18 AM Signed Noted. Allergies As of Date: 01/09/2020 Noted Allergy Reaction ASA (SALICYLATES) 01/27/2011 14 - Other: See Comments Comments: ulcers CONTRAST DYE (IODINE) 05/17/2008 12 - Shortness of Breath FLAGYL (METRONIDAZOLE HCL) 03/11/2010 12 - Shortness of [place] IBUPROFEN 06/18/2016 8 - GI Upset [...] * * *Final Report* * * Normal [facility] AP/LAT DATE OF EXAM: Jan 06 2020 12:58PM [place] ([id number]) WOX [id number] - XR THORACIC 2V AP/LAT / PROCEDURE REASON: Fall, initial encounter * * * * Physician Interpretation * * * * EXAM TITLE: XR THORACIC 2V AP/LAT DATE: 01/06/2020 COMPARISON: None. CLINICAL INDICATION/HISTORY: Back pain status post fall in [facility]. TECHNIQUE: AP and lateral views of the thoracic spine are pr esented. FINDINGS: No fractures or subluxations are noted. The disc spaces are well preserved. There is no paraspinal mass or delon destructive process. IMPRESSION: Negative thoracic spine. Cigar Packer And Sorter: PSCB Transcribe Date/Time: Jan 06 2020 1:02P Dictated by : NIDA VILLALOBOS MD This examination was interpreted and the report reviewed and electronically signed by: NIDA VILLALOBOS MD on Jan 06 2020 1:07PM EST [id number] xr cervical 3v ap/lat/odon on 2020-01-06 XR CERVICAL 3V * * *Final Report* * * Normal [facility] AP/LAT/ODON DATE OF EXAM: Jan 06 2020 12:58PM [place] WOX 5309 - XR CERVICAL 3V AP/LAT/ODON / 3 ([id number]) PROCEDURE REASON: Fall, initial encounter * * [...] tissues are normal. IMPRESSION: Negative cervical spine. Cigar Packer And Sorter: PSCB Transcribe Date/Time: Jan 06 2020 1:00P Dictated by : NIDA VILLALOBOS MD This examination was interpreted and the report reviewed and electronically signed by: NIDA VILLALOBOS MD on Jan 06 2020 1:04PM EST [id number] progress on 2019-12 PROGRESS HNO ID: [id number] Normal 01-06-2020 [facility] Author: Vianey Sanchez (Tech) [place] ([id number]) Service: ? Author Type: Warehouse Shipper Type: Progress Notes Filed: 01/06/2020 12:58 PM [...] 12:43 PM cnpn on 2020-01-06 [facility] Normal 01-06-2020 [place] [facility] SALLY MCGREGOR ([id number]) 1980 [facility] Date Time Provider Department ([id number]) 01/06/20 MARCELINO MEJIA During your visit today, we recorded the following informati on about you: Deepa Salvador, HOURLY ASSOCIATE, HOURLY ASSOCIATE 01/06/2020 11:41 AM Signed Pt calls states fell a day ago and went to [facility] they gave h er 10 [...] encounter [W19.XXXA] Order(s):XR THORACIC LIMITED 2V AP/LAT [[id number]] Order #: [id number] FUTURE XR CERV INJURY 3V AP/LAT/ODON [[id number]] Order #: [id number] FUTURE Prescriptions as of 01/06/2020 Sig: SERTRALINE [...] Status:Closed by BRANDEN SANDERS MA [facility] Normal 01-06-2020 [place] [facility] SALLY MCGREGOR ([id number]) 1980 [facility] Date Time Provider Department ([id number]) 01/06/20 MARCELINO MEJIA [facility] During your visit today, we recorded [...] (METRONIDAZOLE HCL) 03/11/2010 12 - Shortness of [place] th IBUPROFEN 06/18/2016 8 - GI Upset [...] 01/06/20 progress on 2019-12 PROGRESS HNO ID: [id number] Normal 01-05-2020 [facility] Author: Isabel Romero) Hugo Mata ([id number]) Service: ? Author Type: Physician Staff Command And Control Officer Type: Progress Notes Filed: 01/05/2020 8:07 AM [...] to cancel due to no r kostas. [facility] has appointment rescheduled on january 19. [...] minutes progress on 2019-12 PROGRESS HNO ID: [id number] Normal 01-02-2020 [facility] Author: Marie Mary) [facility] ([id number]) Service: ? Author Type: Nurse Practitioner Type: [...] Benign liver cyst 05/24/2010 CT scan at [facility] 11/2009 and 04/2010 showe 4 mm increase in size . No pain. No elevated LFTs on 03/11/2010. - Calculus of kidney 05/17/[address] Nicolas: Hospitalized age 20, and again later -- no procedures so far ([facility], [facility], 1995 [facility]) - Dysmenorrhea - Impaired fasting [...] Approx. 3 cigarettes daily-1 pack every w ak chin Substance Use Topics - Alcohol use: Yes [...] 2020-01-02 CNOV Office Visit ([facility]) Normal 01-02-20 [place] SALLY Martinez ([id number]) 1980 F [place] Date Time Provider Department ([id number]) 01/02/20 2:45 PM MARIE SANTAMARIA (JAKI) [facility] [...] Benign liver cyst 05/24/2010 CT scan at [facility] 11/2009 and 04/2010 showe 4 mm increase in size . No pain. No elevated LFTs on 03/11/2010. - Calculus of kidney 05/17/[address] Nicolas: Hospitalized age 20, a nd again later -- no procedures so far ([facility], [facility], 1995 [facility]) - Dysmenorrhea - Impaired fasting [...] Approx. 3 cigarettes daily-1 pack every w ak chin Substance Use Topics - Alcohol use: Yes [...] MG CAPSULE Agrees to plan Marie Santamaria APRN.LEAD JANITOR Referring Provider: SELF [[id number]] Allergies As of Date: 01/02/2020 Noted Allergy Reaction ASA (SALICYLATES) 01/27/2011 14 - Other: See Comments Comments: ulcers CONTRAST DYE (IODINE) 05/17/2008 12 - Shortness of Breath FLAGYL (METRONIDAZOLE HCL) 03/11/2010 12 - Shortness of [place] th IBUPROFEN 06/18/2016 8 - GI Upset [...] SANTAMARIA CNP on 01/02/20 cnpn on 2019-12-23 [facility]) Normal 12-23-2019 [place] [facility] SALLY MCGREGOR ([id number]) 1980 [facility] Date Time Provider Department (68979) 12/23/19 [facility]ABEL ARIAS) [facility] During your visit today, we recorded [...] not helping cough. Please advise and call [phone]. WENDI ARIAS PA-C 12/23/2019 1:02 PM Signed [...] * *Final Report* * * Normal 12-21 [facility] FRONTAL/LAT DATE OF EXAM: Dec 22 2019 9:28AM [place] WOX 5291 - XR CHEST 2V FRONTAL/LAT / ([id number]) PROCEDURE REASON: multiple diagnoses * * * [...] clips noted. IMPRESSION: No acute radiographic abnormality. Cigar Packer And Sorter: PSCB Transcribe Date/Time: Dec 22 2019 9:29A Dictated by : NIDA VILLALOBOS MD This examination was interpreted and the report reviewed and electronically signed by: NIDA VILLALOBOS MD on Dec 22 2019 9:51AM EST [id number] progress on 2019-12 PROGRESS HNO ID: [id number] Normal 12-22-2019 [facility] Author: Madeline [place]ner (Rt) Vianey Luo Mata ([id number]) Service: ? Author Type: Warehouse Shipper Type: Progress Notes Filed: 12/22/2019 9:28 AM [...] 22, 2019 9:18 AM cnpn on 2019-12-22 [facility]) Normal 12-22-2019 [place] [facility] SALLY MCGREGOR ([id number]) 1980 [facility] Date Time Provider Department (90294) 12/22/19 ISABEL ARIAS) RAMA During your visit today, we recorded the following informati on about you: ISABEL ARIAS PA-C 12/22/2019 9:56 AM Signed Let patient know that xray is negative. Recommend cont inuing as we discussed yesterday. Isabel Arias PA-C Ashley Mcfarland [employer] Insurance Claim Adjuster 12/22/2019 10:42 AM Signed Patient notified and verbalized understanding Ashley Mcfarland [employer] Insurance Claim Adjuster Allergies As of Date: 12/22/2019 Noted Allergy Reaction ASA (SALICYLATES) 01/27/2011 14 - Other: See Comments Comments: ulcers CONTRAST DYE (IODINE) 05/17/2008 12 - Shortness of Breath FLAGYL (METRONIDAZOLE HCL) 03/11/2010 12 - Shortness of [place] th IBUPROFEN 06/18/2016 8 - GI Upset [...] 12/22/19 progress on 2019-12 PROGRESS HNO ID: [id number] Normal 12-21-2019 [facility] Author: Isabel Romero) Hugo Mata ([id number]) Service: ? Author Type: Physician Staff Command And Control Officer Type: Progress Notes Filed: 12/21/2019 12:48 PM Note Text: DISTANCE HEALTH VISIT This Team Access Model visit is a phone encounter. It requir ed patient-provider interaction for the medical decision making as documented below. No video was used for evaluation of this patient. Patient consents to visit. Patient location: [place] Sally Mcgregor is a 39 year old [...] SYSTEMS: As noted in HPI PHYSICAL EXAMINATION: [facility] 08/10/2006 Deferred physical exam as [...] on 2019-12-15 CNPN Telephone (FAMPWS) Normal 12-15-2019 [place] [facility] SALLY MCGREGOR ([id number]) 1980 [facility] Date Time Provider Department ([id number]) 12/15/19 ISABEL ARIAS (MAYA) RAMA During your [...] and still makes her nauseated. Patient uses [facility] for her pharmacy. Please advise ISABEL ARIAS [...] on 2019-12-14 CNPN Telephone (INTMWS) Normal 12-14-2019 [place] [facility] SALLY MCGREGOR ([id number]) 1980 F [place] Date Time Provider Department (96825) 12/14/19 ISABEL ARIAS) INTMWS During your visit today, we recorded the following informati on about you: Gale Fuentes LPN 12/14/2019 10:15 AM Signed Patient took 1 dose of Robitussin AC, di d help suppress cough but developed an itchy/rash. Asking if something else can be called in to pha acy. Patient uses [facility]. Please notify Patient. Gale ARIAS PA-C 12/14/2019 [...] on 12/14/19 CNPN Telephone (FAMPWS) Normal 12-14-2019 [place] [facility] SALLY MCGREGOR ([id number]) 1980 [facility] Date Time Provider Department (65527) 12/14/19 ISABEL ARIAS) RAMA During your visit [...] 12/14/19 progress on 2019-11 PROGRESS HNO ID: [id number] Normal 12-13-2019 [facility] Author: Isabel Romero) Hugo Mata ([id number]) Service: ? Author Type: Physician Staff Command And Control Officer Type: Progress Notes Filed: 12/13/2019 10:36 AM [...] Benign liver cyst 05/24/2010 CT scan at [facility] 11/2009 and 04/2010 showe 4 mm increase in size . No pain. No elevated LFTs on 03/11/2010. - Calculus of kidney 05/17/[address] Nicolas: Hospitalized age 20, and again later -- no procedures so far ([facility], [facility], 1995 [facility]) - Dysmenorrhea - Impaired fasting [...] Approx. 3 cigarettes daily-1 pack every w ak chin Substance Use Topics - Alcohol use: Yes [...] (COVID-19). emergency report on 2019-11-26 EMERGENCY REPORT [facility] Normal 11-25 [facility] ospital EMERGENCY ROOM REPORT ([id number]) NAME ACCOUNT SEX AGE ADMIT DISCHARGE PT MED. RECORD# NUMBER DATE DATE TYPE SAM, [id number] F 39 11/24/19 11/25/19 3 SALLY [id number] ROOM: ER DATE OF : 1980 DICTATING [...] review of her constipation [facility]. She verbalized understanding of the informa tion given and agreed to plan. She was discharged in stable condition. Dictated By: Ana Alcantar MD 11/25/19 05:37 JOB #: [id number] Transcribed By: dotty 11/25/19 22:11 Electronically signed by: Jennifer Perez MD 11/25/19 22:39 Page 2 of 2 SALLY MCGREGOR Emergency Room Report urinalysis with microscopy on 2019-11-25 Amorphous NONE Normal 11-25-2019 [facility] (00752) Comment: Performed By: #### [id number] ## ## [facility],[address] [place] [address] 03586 Bacteria LM.HPF (Urine sed) 4+ Normal [facility] [#/Area] [facility] ( 20204) Comment: Performed By: #### [id number] ## ## [facility],[address] [place] [address] 16932 Bilirubin [Mass/Vol] NEG NORMAL: NEGATIVE mg/dL Normal [facility] ospital (46932) Comment: Performed By: #### [id number] ## ## [facility],[address] [place] [address] 18650 Blood 10 NORMAL: NEGATIVE Abnormal 11-25-2019 [facility] (66193) Comment: Performed By: #### [id number] ## ## [facility],[address] [place], [place] [address] Casts LM.LPF (Urine sed) NONE Normal 11-24 [facility] [#/Area] [facility] ( 46730) Comment: Performed By: #### [id number] ## ## [facility],[address] [place] [address] 75436 Clarity (U) sl.cloudy NORMAL: CLEAR Normal 11-25-2019 [facility] ( 06562) Comment: Performed By: #### [id number] ## ## [facility],[address] [place] [address] 50125 Color (U) p.yel NORMAL: YELLOW Normal 11-25-2019 [facility] (85956) Comment: Performed By: #### [id number] ## ## [facility],[address] [place] [address] 32247 Crystals LM Nom (Urine sed) NONE Normal [facility] ( 31893) Comment: Performed By: #### [id number] ## ## [facility],[address] [place] [address] 72696 Epi Cells MANY Normal 11-25-2019 [facility] (30942) Comment: Performed By: #### [id number] ## ## [facility] [address] Glucose [Mass/Vol] NORM NORMAL: NORMAL Normal 2019 [facility] ( 07588) Comment: Performed By: #### [id number] ## ## [facility],[address] [place] [address] 01739 Ketone NEG NORMAL: NEGATIVE Normal 11-25-2019 [facility] (44999) Comment: Performed By: #### [id number] ## ## [facility],[address] [place] [address] 79666 Mucous NONE Normal 11-25-2019 [facility] (73592) Comment: Performed By: #### [id number] ## ## [facility],[address] [place] [address] 01086 Nitrite Ql (U) NEG NORMAL: NEGATIVE Normal 11-25-19 20 [facility] ( 51612) Comment: Performed By: #### [id number] ## ## [facility],[address] [place] [address] 54960 pH (Bld) 5 NORMAL: 5.0-8.0 Normal 11-25-2019 [facility] (31510) Comment: Performed By: #### [id number] ## ## [facility],[address] [place] [address] 63522 Protein (U) NEG NORMAL: NEGATIVE mg/dL Normal 11-25-2019 [facility] [Mass/Vol] [facility] (12725) Comment: Performed By: #### [id number] ## ## [facility] [place] [address] Rbc 0-5 0-3 / hpf Normal 11-25-2019 [facility] (44380) Comment: Performed By: #### [id number] ## ## [facility],[address] [place], [place] [address] Sp Pony 1.010 NORMAL: 1.010-1.030 Normal 0 [facility] ( 21386) Comment: Performed By: #### [id number] ## ## [facility],[address] [place] [address] Specimen type Nom (Spec) UNSPECIFIED Normal [facility] ( 18396) Comment: Performed By: #### [id number] ## ## [facility],[address] [place], [place] [address] URINALYSIS WITH MICROSCOPY Normal [facility] (94953) Comment: Result Comment: URINALYSIS Performed By: #### [id number] ## ## [facility],[address] [place] [address] Urobilinog NORM NORMAL: NORMAL Normal 11-25-2019 [facility] (96614) Comment: Performed By: #### [id number] ## ## [facility],[address] [place], [place] [address] Wbc 1-5 0-5 / hpf Normal 11-25-2019 [facility] (06854) Comment: Performed By: #### [id number] ## ## [facility],[address] [place], [place] [address] WBC (Bld) [#/Vol] 25 NORMAL: NEGATIVE Abnormal 11-24 [facility] ( 69578) Comment: Result Comment: URINE MICROS COPIC Performed By: #### [id number] ## ## [facility],[address] [place] [address] 56514 Yeast LM Ql (Urine sed) NONE Normal 2019 [facility] (16475) Comment: Performed By: #### [id number] ## ## [facility],[address] [place] [address] 10536 lipase on 2019-11-13 3 Lipase [Catalytic 34.0 18.0 - 51.0 U/L Normal 11-25-2019 [facility] activity/Vol] [facility] (00194) Comment: Performed By: #### [id number] ## ## [facility],[address] [facility] 13374 lactate on Lactate [Moles/Vol] 0.9 0.5 - 2.0 mmol/L Normal 11-25-2019 [facility] ( 94629) Comment: Performed By: #### [id number] ## ## [facility],[address] [place] [address] abdomen/pelvis wo on 2019-11-25 CT ABDOMEN/PELVIS [facility] Normal 0 11-25-2019 [facility] ospital [address] [place], [place] [address] (76584) Patient: SALLY MCGREGOR Phone#: : 1980 Age: 39 Gender: F Pt. Type: ER Account: [id number] Location: [facility] Ordering: DR. ANA ALCANTAR Exam Date: 11/25/2019/0:04 Family Phys: ISABEL ARIAS Charge Code: [id number] Physician: Trego Order #: [id number] DLP Dose#: PROCEDURE: CT ABDOMEN/PELVIS WITHOUT CONTRAST COMPARISON: [facility], CT, ABDOMEN/PELVIS W/O CON, 03/22/2019, 16:41. INDICATIONS: Abdominal Pain TECHNIQUE: CT images were created without intravenous contra st. All [facility] at [facility] use dose modulation, iterative reconstruction, and/or [...] 39 Gender: F Pt. Type: ER Account: [id number] Location: 052 Ordering: DR. ANA ALCANTAR Exam Date: 11/25/2019/0:04 Family Phys: ISABEL ARIAS Charge Code: [id number] Physician: Trego Order #: [id number] DLP Dose#: ABDOMINAL WALL: There is a [...] on 2019-11-25 CNPN Telephone (FAMPWS) Normal 11-25-2019 [place] [facility] TOSHIASALLY TORRES ([id number]) 1980 F [place] Date Time Provider Department (53310) 11/25/19 JAY ARIAS) [facility] During your visit today, we recorded the [...] Age - Reported 39 years Normal 11-25-2019 [facility] (82153) Comment: Performed By: #### [id number] ## ## [facility],[address] [place] [address] 24164 Albumin [Mass/Vol] 4.5 3.4 - 4.8 g/dL Normal 11-25-2019 [facility] ( 63581) Comment: Performed By: #### [id number] ## ## [facility],[address] [place] [address] 20095 Albumin/Globulin [Mass 1.3 0.9 - 1.6 {ratio} Normal [address] [place] [address] (98524) Comment: Performed By: #### [id number] ## ## [facility],[address] [place] [address] 11673 ALK PHOS 93 38 - 126 U/L Normal 11-25-2019 [facility] (27953) Comment: Performed By: #### [id number] ## ## [facility],[address] [place] [address] 00342 ALT/SGPT 10 8 - 35 U/L Normal 11-25-2019 [facility] (37735) Comment: Performed By: #### [id number] ## ## [facility],[address] [place] [address] 81239 Anion gap [Moles/Vol] 13 10 - 20 mmol/L Normal 11-25-19 [facility] ( 58671) Comment: Performed By: #### [id number] ## ## [facility],[address] [place] [address] 55904 AST/SGOT 9 13 - 39 U/L Low 11-25-2019 [facility] (50139) Comment: Performed By: #### [id number] ## ## [facility],1 [facility] 97044 B/C RATIO 17 0 - 30 ratio Normal 11-25-2019 [facility] (43814) Comment: Performed By: #### [id number] ## ## [facility] [facility] 14794 Bilirubin [Mass/Vol] 0.4 0.0 - 1.5 mg/dl Normal 0 [facility] ( 97035) Comment: Performed By: #### [id number] ## ## [facility],[address] [place] [address] 89564 Calcium [Mass/Vol] 9.9 8.6 - 10.2 mg/dl Normal 11-25-2019 [facility] ( 26385) Comment: Performed By: #### 134115 ## ## [facility] [facility] 36746 Chloride [Moles/Vol] 103 98 - 107 mmol/L Normal 0 [facility] ( 94035) Comment: Performed By: #### [id number] ## ## [facility],[address] [place] [address] CO2 [Moles/Vol] 24.9 21.0 - 31.0 mmol/L Normal 11-25-2019 [facility] ( 84648) Comment: Performed By: #### [id number] ## ## [facility],[address] [place] [address] 54041 Creatinine [Mass/Vol] 1.0 0.6 - 1.2 mg/dl Normal 11-25-19 20 [facility] ( 30242) Comment: Performed By: #### [id number] ## ## [facility],[address] [place] [address] 43552 GFR/1.73 sq M >60 60 - 999 mL/min/{1.73_m2} Normal 0 [facility] predicted among [facility] non-blacks MDRD (000 00) (S/P/Bld) [Vol rate/Area] Comment: Performed By: #### [id number] ## ## [facility],[address] [place] [address] 25464 Result Comment: ACCORDING TO THE NATIONAL KIDNEY DISEASE EDUCATION PROGRAM(NKDE), A NORMAL eGFR IS A VALUE GREATER THAN OR E QUAL TO 60 ML/MIN/1.73 SQ METERS. CHRONIC KIDNEY DISEASE: <60m L/MIN/1.73 SQ METERS KIDNEY FAILURE: <15mL/MIN/1. 73 SQ METERS THIS TEST SHOULD ONLY BE USE D FOR PATIENTS 18 YEARS OF AGE AND OLDER. GFR/1.73 sq M predicted among Normal 11-25-2019 [facility] non-blacks MDRD (S/P/Bld) [Vol Hospital (15536) rate/Area] Comment: Result Comment: COMPREHENSIV E METABOLIC PANEL Performed By: #### [id number] ## ## [facility],[address] [place] [address] 87379 Globulin (S) [Mass/Vol] 3.5 1.5 - 3.8 G/DL Normal 2019 [facility] ( 90704) Comment: Performed By: #### [id number] ## ## [facility],[address] [place] [address] 69473 Glucose [Mass/Vol] 123 74 - 106 mg/dl High 11-25-2019 [facility] (47423) Comment: Performed By: #### [id number] ## ## [facility],[address] [place] [address] 22506 Potassium [Moles/Vol] 3.6 3.5 - 5.1 mmol/L Normal 11-25-19 20 [facility] ( 38889) Comment: Performed By: #### [id number] ## ## [facility],[address] [place] [address] 31921 Protein [Mass/Vol] 8.0 6.4 - 8.3 g/dl Normal 11-25-2019 [facility] ( 30958) Comment: Performed By: #### [id number] ## ## [facility],[address] [place] [address] 82397 Sodium [Moles/Vol] 137 136 - 145 mmol/l Normal 11-25-2019 [facility] ( 46209) Comment: Performed By: #### [id number] ## ## [facility],[address] [place] [address] 68158 Urea nitrogen [Mass/Vol] 17 6 - 20 mg/dl Normal 11-24 [facility] ( 59072) Comment: Performed By: #### [id number] ## ## [facility],[address] [place] [address] 96458 chest 2 views on 01-12-12 CHEST 2 VIEWS [facility] Normal 11-25-19 [facility] [address] [place], [place] [address] (16662) Patient: SALLY MCGREGOR Phone#: : 1980 Age: 39 Gender: F Pt. Type: ER Account: [id number] Location: [facility] Ordering: DR. ANA ALCANTAR Exam Date: 11/25/2019/0:08 Family Phys: ISABEL ARIAS Charge Code: [id number] Physician: Trego Order #: [id number] DLP Dose#: PROCEDURE: X-RAY CHEST 2 VIEWS COMPARISON: [facility], XR, CHEST PA/LAT, 05/12/2017, 16:14. INDICATIONS: Cough [...] on 11-24 CELL COUNT 100 Normal 11-25-2019 [facility] (93768) Comment: Performed By: #### [id number] ## ## [facility],[address] [place] [address] 57581 EO 1.0 0.0 - 4.0 % Normal 11-25-2019 [facility] (62542) Comment: Performed By: #### 609649 ## ## [facility],[address] [place] [address] 41173 SEGS 59 50 - 70 % Normal 11-25-2019 [facility] (80023) Comment: Performed By: #### [id number] ## ## [facility],[address] [place] [address] 98709 CBC + DIFF Normal 11-25-2019 [facility] (79273) Comment: Result Comment: CBC-COMPLETE BLOOD COUNT Performed By: #### [id number] ## ## [facility],[address] [place] [address] 11410 Erythrocyte distribution 13.4 12.0 - 15.6 % Normal [facility] (RBC) [Ratio] [facility] (32434) Comment: Performed By: #### [id number] ## ## [facility],[address] [place] [address] 65522 Hematocrit (Bld) [Volume 32.5 34.0 - 46.0 % Low [facility]] [facility] ( 71683) Comment: Performed By: #### [id number] ## ## [facility],[address] [place] [address] 14025 Hemoglobin (Bld) 11.4 12.0 - 16.0 g/dl Low 11-25-2019 [facility] [Mass/Vol] Hospital (77596) Comment: Performed By: #### [id number] ## ## [facility] [facility] [place] [address] 20697 Lymphocytes/100 WBC (Bld) 40 20 - 40 % Normal 11-12 [facility] ( 71114) Comment: Performed By: #### [id number] ## ## [facility],[address] [place] [address] 44929 MANUAL DIFF SEE BELOW Normal 11-25-2019 [facility] (12476) Comment: Performed By: #### [id number] ## ## [facility],[address] [place] [address] 56707 MCH (RBC) [Entitic mass] 31 27 - 33 pg Normal 11-24 [facility] ( 43134) Comment: Performed By: #### [id number] ## ## [facility],[address] [place] [address] 24019 MCHC (RBC) [Mass/Vol] 35 32 - 36 X10 3 Normal 11-25-19 20 [facility] ( 37664) Comment: Performed By: #### [id number] ## ## [facility],[address] [place] [address] 94124 MCV (RBC) [Entitic vol] 88 80 - 99 fl Normal 2019 [facility] ( 39070) Comment: Performed By: #### [id number] ## ## [facility] [place] [address] 72540 Morphology Adrian (Bld) REVIEWED Normal 0 [facility] [Interp] [facility] ( 92435) Comment: Performed By: #### [id number] ## ## [facility] [place] [address] 23734 Platelet mean volume 9.1 6.6 - 10.5 fl Normal 11-25-19 20 [facility] (Bld) [Entitic vol] [facility] (28392) Comment: Result Comment: AUTOMATED DI FFERENTIAL Performed By: #### [id number] ## ## [facility],[address] [place] [address] 58612 Platelets (Bld) 268 150 - 450 x10EE3/UL Normal 11-25-2019 [facility] [#/Vol] [facility] (18349) Comment: Performed By: #### [id number] ## ## [facility],[address] [place] [address] 46638 RBC (Bld) [#/Vol] 3.69 4.10 - 5.30 x 10EE6/UL Low 0 [facility] ( 20229) Comment: Performed By: #### [id number] ## ## [facility],[address] [place] [address] 03552 WBC (Bld) [#/Vol] 11.4 4.5 - 10.8 x 10EE3/UL High 11-25-2019 [facility] ( 59214) Comment: Performed By: #### [id number] ## ## [facility],[address] [place] [address] 83594 tsh on 2019-11-24 TSH Qn 3.920 0.270-4.200 uU/mL Normal 11-24-2019 [facility] (95230) Comment: Result Comment: If the patie nt [...] et al. 2017 Guide lines of the English Thyroid Association for the Diagnosis and Management of Thyroid Disease during and the . Thyroid, 2017:27:3:315-389. Performed By: #### TSH, CBCD IF, CMP ####[facility] [address] [employer], [place] [phone] troponin t on 11-23 Troponin T.cardiac Test sent to 0.000-0.029 Normal 2019 [facility] [Mass/Vol] [facility] (43192) [facility]. Comment: Result Comment: Account Cred ited HIDE progress on 2019-11 PROGRESS HNO ID: [id number] Normal 11-24-2019 [facility] Author: Jay) Hugo [place] ([id number]) Service: ? Author Type: Physician Staff Command And Control Officer Type: Progress Notes Filed: 11/24/2019 9:33 AM [...] insurance and was forced to see a [facility] psychiatrist who isn't helping her. Only spoke with her twice. States she is in a lot of pain and trouble sleeping. States gabapentin used to work for her but when she lost her insurance. PAST MEDICAL HISTORY Diagnosis Date - Allergic rhinitis, cause unspecified 05/17/2008 Spring and summer - Benign liver cyst 05/24/2010 CT scan at [facility] 11/2009 and 04/2010 showe 4 mm increase in size . No pain. No elevated LFTs on 03/11/2010. - Calculus of kidney 05/17/[address] Nicolas: Hospitalized age 20, and again later -- no procedures so far ([facility], [facility], 1995 [facility]) - Dysmenorrhea - Impaired fasting [...] Approx. 3 cigarettes daily-1 pack every w ak chin Substance Use Topics - Alcohol use: Yes [...] dimer on D dimer Test sent to [place] <500 Normal 0 [facility]. (40307) Comment: Result Comment: Account Cred ited HIDE comp metabolic panel on 2019-11-24 Albumin [Mass/Vol] 4.4 3.9-4.9 g/dL Normal 11-24-2019 [facility] (51472) Comment: Performed By: #### TSH, CBCD IF, CMP ####[facility] [address] [place] [address] [phone] ALP [Catalytic activity/Vol] 105 34-123 U/L Normal 0 11-24-2019 [facility] (67471) Comment: Performed By: #### TSH, CBCD IF, CMP ####[facility] [address] [place] [address] [phone] ALT [Catalytic activity/Vol] 6 7-38 U/L Low 0 11-24-2019 [facility] (52336) Comment: Performed By: #### TSH, CBCD IF, CMP ####[facility] [place] [address] [phone] Anion gap [Moles/Vol] 12 9-18 mmol/L Normal 11-24-19 20 [facility] (65577) Comment: Performed By: #### TSH, CBCD IF, CMP ####[place] [address] [address] [place] [address] [phone] AST [Catalytic activity/Vol] 14 13-35 U/L Normal 0 11-24-2019 [facility] (45339) Comment: Performed By: #### TSH, CBCD IF, CMP ####[place] [address] [phone] Bilirubin [Mass/Vol] 0.4 0.2-1.3 mg/dL Normal 0 [facility] (00749) Comment: Performed By: #### TSH, CBCD IF, CMP ####[place] [address] [address] [place] [address] [phone] Calcium [Mass/Vol] 9.9 8.5-10.2 mg/dL Normal 11-24-2019 [facility] (04305) Comment: Performed By: #### TSH, CBCD IF, CMP ####[facility] [place] [address] [phone] Chloride [Moles/Vol] 101 97-105 mmol/L Normal 0 [facility] (80353) Comment: Performed By: #### TSH, CBCD IF, CMP ####[place] [id number] [place] [address] [phone] CO2 [Moles/Vol] 23 22-30 mmol/L Normal 11-24-2019 [facility] (82294) Comment: Performed By: #### TSH, CBCD IF, CMP ####[facility] [address] [place] [address] [phone] Creatinine [Mass/Vol] 0.93 0.58-0.96 mg/dL Normal 11-24-19 [facility] (94070) Comment: Performed By: #### TSH, CBCD IF, CMP ####[facility] [address]ober[address] [place] [address] [phone] eGFR- Amer. >60 Normal 11-24-2019 [facility] (67674) Comment: Performed By: #### TSH, CBCD IF, CMP ####[facility] [place] [address] [phone] GFR/1.73 sq M predicted >60 mL/min/{1.73_m2} Normal 11-24-2019 [facility] among non-blacks [facility] (71706) (S/P/Bld) [Vol rate/Area] Comment: Result Comment: eGFR [...] #### TSH, CBCD IF, CMP ####[facility] [address] [place] [address] [phone] Glucose [Mass/Vol] 98 74-99 mg/dL Normal 11-24-2019 [facility] (41865) Comment: Result Comment: The English Diabetes Association (ADA) provides guidance for cutoff [...] for diagnosis of diabetes. Reference: Standards of [facility] Care in Diabetes 2016, English Diabetes Association. Diabetes Care. 2016.39(Suppl 1). Performed By: #### TSH, CBCD IF, CMP ####[facility] [place] [address] [phone] Potassium [Moles/Vol] 4.1 3.7-5.1 mmol/L Normal 11-24-19 [facility] (88565) Comment: Performed By: #### TSH, CBCD IF, CMP ####[place] [address] [phone] Protein [Mass/Vol] 7.6 6.3-8.0 g/dL Normal 11-24-2019 [facility] (48903) Comment: Performed By: #### TSH, CBCD IF, CMP ####[place] [address] [place] [address] [phone] Sodium [Moles/Vol] 136 136-144 mmol/L Normal 11-24-2019 [facility] (59018) Comment: Performed By: #### TSH, CBCD IF, CMP ####[place] [address] [phone] Urea nitrogen [Mass/Vol] 21 7-21 mg/dL Normal 11-23 [facility] (07191) Comment: Performed By: #### TSH, CBCD IF, CMP ####[place] [address] [phone] cnpn on 2019-11-24 CNPN Telephone (FAMPWS) Normal 11-24-2019 [place] [facility] SALLY MCGREGOR ([id number]) 1980 [facility] Time Provider Department (86673) 11/24/19 MARCELINO MEJIA During your visit today, [...] 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 Valente Bruce Ma' Allergies As of Date: 11/24/2019 Noted Allergy Reaction ASA (SALICYLATES) 01/27/2011 14 - Other: See Comments Comments: ulcers CONTRAST DYE (IODINE) 05/17/2008 12 - Shortness of Breath FLAGYL (METRONIDAZOLE HCL) 03/11/2010 12 - Shortness of [place] th IBUPROFEN 06/18/2016 8 - GI Upset [...] on 11/24/19 CNPN Telephone (FAMPWS) Normal 11-24-2019 [place] [facility] SALLY MCGREGOR ([id number]) 1980 [facility] Date Time Provider Department (66846) 11/24/19 JAY ARIAS) [facility] During your visit today, we recorded the following informati on about you: Lorenzo Vu 11/24/2019 12:40 PM Signed 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 If so please fax to [email or web address] and [employer] fax [phone]. ISABEL ARIAS PA-C 11/24/2019 1:00 PM Signed [...] on 11/24/19 CNPN Telephone (FAMPWS) Normal 11-24-2019 [place] [facility] SALLY MCGREGOR ([id number]) 1980 [facility] Date Time Provider Department (87690) 11/24/19 MARCELINO MEJIA [facility] During your visit today, we recorded the following informati on about you: Yvette Huffman RN 11/24/2019 12:00 PM Signed Aidee from [facility] lab called, verified pt by [...] (METRONIDAZOLE HCL) 03/11/2010 12 - Shortness of [place] IBUPROFEN 06/18/2016 8 - GI Upset [...] 2019-11-24 CNOV Office Visit (FAMPWS) Normal 11-24-19 [place] [facility] SALLY MCGREGOR ([id number]) 1980 [facility] Date Time Provider Department (57120) 11/24/19 9:20 AM JAY ARIAS) FAMPWS During [...] Benign liver cyst 05/24/2010 CT scan at [facility] 11/2009 and 04/2010 showe 4 mm increase in size . No pain. No elevated LFTs on 03/11/2010. - Calculus of kidney 05/17/[address] Nicolas: Hospitalized age 20, a nd again later -- no procedures so far ([facility], [facility], 1995 [facility]) - Dysmenorrhea - Impaired fasting [...] Approx. 3 cigarettes daily-1 pack every w ak chin Substance Use Topics - Alcohol use: Yes [...] [facility] [[id number]] Order #: [id number]: 1 levoFLOXacin (LEVAQUIN) 500 mg tabletTake 1 [...] Abs Baso 0.06 <0.11 k/uL Normal 11-24-2019 [facility] (28208) Comment: Performed By: #### TSH, CBCD IF, CMP ####[place] [address] [place] [address] [phone] Abs [place] 0.43 <0.87 k/uL Normal 11-24-2019 [facility] (41987) Comment: Performed By: #### TSH, CBCD IF, CMP ####[place] [address] [address] [address] [phone] Abs Neut 5.59 1.45-7.50 k/uL Normal 11-24-2019 [facility] (05511) Comment: Performed By: #### TSH, CBCD IF, CMP ####[place] [address] [address] [address] [phone] Absolute nRBC <0.01 <0.01 Normal 11-24-2019 [facility] (80101) Comment: Performed By: #### TSH, CBCD IF, CMP ####[place] [address] [address] [address] [phone] Basophils/100 WBC (Bld) 0.7 % Normal 2019 [facility] (61734) Comment: Performed By: #### TSH, CBCD IF, CMP ####[place] [address] [address] [address] [phone] DTYPE Auto Diff Normal 11-24-2019 [facility] (90274) Comment: Performed By: #### TSH, CBCD IF, CMP ####[place] [address] [place] [address] [phone] Eosinophils (Bld) [#/Vol] 0.34 <0.46 k/uL Normal 11-12 [facility] (83537) Comment: Performed By: #### TSH, CBCD IF, CMP ####[place] [address] [place] [address] [phone] Eosinophils/100 WBC (Bld) 3.7 % Normal 11-12 [facility] (18272) Comment: Performed By: #### TSH, CBCD IF, CMP ####[facility] [address] Erythrocyte distribution 13.1 11.5-15.0 % Normal 11-23 [facility] width (RBC) [Ratio] [place] (07283) Comment: Performed By: #### TSH, CBCD IF, CMP ####[facility] [address] [address] [phone] Hematocrit (Bld) [Volume 38.1 36.0-46.0 % Normal 11-23 [facility] fraction] [place] (97113) Comment: Performed By: #### TSH, CBCD IF, CMP ####[facility] [address] [phone] Hemoglobin (Bld) 11.7 11.5-15.5 g/dL Normal 11-24-2019 [facility] [Mass/Vol] [place] (63227) Comment: Performed By: #### TSH, CBCD IF, CMP ####[facility] [address] [phone] Lymphocytes (Bld) [#/Vol] 2.69 1.00-4.00 k/uL Normal 11-12 [facility] (71463) Comment: Performed By: #### TSH, CBCD IF, CMP ####[facility] [address] [address] [phone] Lymphocytes/100 WBC (Bld) 29.5 % Normal 11-12 [facility] (45576) Comment: Performed By: #### TSH, CBCD IF, CMP ####[facility] [address] [address] [phone] MCH (RBC) [Entitic mass] 29.3 26.0-34.0 pG Normal 11-23 [facility] (55302) Comment: Performed By: #### TSH, CBCD IF, CMP ####[facility] [address] [phone] MCHC (RBC) [Mass/Vol] 30.7 30.5-36.0 g/dL Normal 11-24-19 [facility] (95125) Comment: Performed By: #### TSH, CBCD IF, CMP ####[place] [address] [place] [address] [phone] MCV (RBC) [Entitic vol] 95.3 80.0-100.0 fL Normal 11-23 [facility] (21247) Comment: Performed By: #### TSH, CBCD IF, CMP ####[place] [address] [address] [place] [address] [phone] Monocytes/100 WBC (Bld) 4.7 % Normal 2019 [facility] (30349) Comment: Performed By: #### TSH, CBCD IF, CMP ####[place] [address] [address] [address] [phone] Neutrophils/100 WBC (Bld) 61.4 % Normal 11-12 [facility] (46218) Comment: Result Comment: Differential confirmed by visual scan of peripheral blood smear slide. Performed By: #### TSH, CBCD IF, CMP ####[place] [address] [address] [place] [address] [phone] NRBCs 0.0 0 /100 WBC Normal 11-24-2019 [facility] (75005) Comment: Performed By: #### TSH, CBCD IF, CMP ####[place] [address] [place] [address] [phone] Platelet mean volume 11.4 9.0-12.7 fL Normal 0 [facility] (Bld) [Entitic vol] [place] (23025) Comment: Performed By: #### TSH, CBCD IF, CMP ####[facility] [place] [address] [phone] Platelets (Bld) [#/Vol] 248 150-400 k/uL Normal 2019 [facility] (08133) Comment: Performed By: #### TSH, CBCD IF, CMP ####[facility] [place] [address] [phone] RBC (Bld) [#/Vol] 4.00 3.90-5.20 m/uL Normal 11-24-2019 C [facility] (11837) Comment: Performed By: #### TSH, CBCD IF, CMP ####[place] [address] [place] [address] [phone] WBC (Bld) [#/Vol] 9.11 3.70-11.00 k/uL Normal 11-24-2019 [facility] (58570) Comment: Performed By: #### TSH, CBCD IF, CMP ####[place] [address] [place] [address] [phone] cnpn on 2019-11-21 C[address]N Telephone ([facility] Normal 11-21-2019 [place] [facility] SALLY MCGREGOR ([id number]) 1980 [facility] Date Time Provider Department (51153) 11/21/[address] During your visit today, we recorded [...] Status:Closed by VALENTE BRUCE MA on 11/23/19 [facility] 2019-11-19 [facility] Telephone (FAMPWS) Normal 11-19-2019 [place] [facility] SALLY MCGREGOR ([id number]) 1980 [facility] Date Time Provider Department (00644) 11/19/[address] [facility] During your visit today, we recorded [...] 11/21/2019 11:15 AM Signed Pt seen in [facility] ER on 11/19/19. Janneth Zhou, [...] (METRONIDAZOLE HCL) 03/11/2010 12 - Shortness of [place] th IBUPROFEN 06/18/2016 8 - GI Upset PENICILLINS 12/07/2009 2 - Rash PREDNISONE 06/18/2016 14 - Other: See Comments Comments: makes agitated and mean Date Reviewed: 11/18/2019 Reviewed by: Valente Bruce Ma - Fully Assessed Reason for Visit: Question [2931] Patient Update [3304] Reason For Visit History Recorded Prescriptions as [...] * *Final Report* * * Normal 11-17 [facility] FRONTAL/LAT DATE OF EXAM: Nov 18 2019 12:48PM [place] WOX 5291 - XR CHEST 2V FRONTAL/LAT / (10878) PROCEDURE REASON: multiple diagnoses * * * [...] tissues: Unremarkable. IMPRESSION: No acute radiographic abnormality. Cigar Packer And Sorter: PSCB Transcribe Date/Time: Nov 18 2019 1:01P Dictated by : KORI BLANKENSHIP MD This examination was interpreted and the report reviewed and electronically signed by: KORI BLANKENSHIP MD on Nov 18 2019 1:02PM EST [id number] progress on 2019-11 PROGRESS HNO ID: [id number] Normal 11-18-2019 [facility] Author: Kylee PickardRtVianey Lea [place] ([id number]) Service: ? Author Type: Warehouse Shipper Type: Progress Notes Filed: 11/18/2019 12:49 PM [...] 18, 2019 12:40 PM PROGRESS HNO ID: [id number] Normal 11-18-2019 [facility] Author: Randi Arias [place] ([id number]) Service: ? Author Type: Physician Staff Command And Control Officer Type: Progress Notes Filed: 11/18/2019 3:32 PM [...] Benign liver cyst 05/24/2010 CT scan at [facility] 11/2009 and 04/2010 showe 4 mm increase in size . No pain. No elevated LFTs on 03/11/2010. - Calculus of kidney 05/17/[address] Nicolas: Hospitalized age 20, and again later -- no procedures so far ([facility], [facility], 1995 [facility]) - Dysmenorrhea - Impaired fasting [...] removed - TOTAL ABDOM HYSTERECTOMY 08/31/06 Hysterectomy, [facility] Family History FAMILY HISTORY Problem Relation Age [...] Approx. 3 cigarettes daily-1 pack every w ak chin Substance Use Topics - Alcohol use: Yes [...] NAME : SALLY MCGREGOR Normal 11-17-2 020 [facility] PID : [id number] Sina boyd ([id number]) : 1980 Gender : Female Race : [...] ms QTC Calculation(Bazett) : 453 ms P [place] : 51 degrees R [place] : -43 degrees T [place] : 6 degrees Test Reason : Location : 185 : [facility] Overread By : RUBEN GALVIN D.O. Edited By : RUBEN GALVIN D.O. Referred By : JAY ARIAS) Acquired by : morena MURRIETA on 2019-11-[facility]) Normal 11-18-2019 [place] [facility] SALLY MCGREGOR ([id number]) 1980 [facility] Time Provider Department (06716) 11/18/19 JAY ARIAS) [facility] During your visit today, we recorded the following informati on about you: Lorenzohanna Vu 11/18/2019 2:14 PM Addendum [facility] / [facility] calls with results of d-dimer [...] cnov on 2019-11-18 CNOV Office Visit (FAMPWS) [place] 11-18-[address] [place] [address] Debra SALLY MCGREGOR ([id number]) 1980 [facility] Time Provider Department (65410) 11/18/19 12:20 PM JAY ARIAS) [facility] During your visit today, we recorded [...] Benign liver cyst 05/24/2010 CT scan at [facility] 11/2009 and 04/2010 showe 4 mm increase in size . No pain. No elevated LFTs on 03/11/2010. - Calculus of kidney 05/17/[address] Nicolas: Hospitalized age 20, a nd again later -- no procedures so far ([facility], [facility], 1995 [facility]) - Dysmenorrhea - Impaired fasting [...] removed - TOTAL ABDOM HYSTERECTOMY 08/31/06 Hysterectomy, [facility] Family History FAMILY HISTORY Problem Relation Age [...] Approx. 3 cigarettes daily-1 pack every w ak chin Substance Use Topics - Alcohol use: Yes [...] Order(s):CONSULT TO PAIN MGT [19991220] Order #: [id number] : 1 FUTURE CBC + DIFF [SQCBCDIF] Order #: [id number] FUTURE COMP METABOLIC PANEL [SQCMP] Order #: [id number] FUTURE D-DIMER [SQDDMER] Order #: [id number] FUTURE TSH BLD [SQTSH] Order #: [id number] FUTURE CONSULT TO CARDIOLOGY [900] Order #: [id number]: 1 FUTUR E XR CHEST 2V FRONTAL/LAT [5335404] Order #: [id number] FUTURE TROPONIN T [SQTNT] Order #: [id number] FUTURE Prescriptions as of 11/18/2019 Sig: AMITRIPTYLINE [...] 11/18/19 emergency report on 2019-11-03 EMERGENCY REPORT [facility] Normal 11-03 [facility] ospital EMERGENCY ROOM REPORT (68860) NAME ACCOUNT SEX AGE ADMIT DISCHARGE PT MED. RECORD# NUMBER DATE DATE TYPE SAM [id number] F 39 10/31/19 10/31/19 3 SALLY [id number] ROOM: ER DATE OF : 1980 DICTATING [...] try contacting Dr. Kyle hernandez through the [employer]. We will dispense her 2 Percocet to go home. I did r eview her OARRS, and she will be discharged in stable condition. Page 1 of 2 SALLY MCGREGOR Emergency Room Report SALLY MCGREGOR : 1980 Dictated By: Nikhil Lord DO 10/31/19 18:03 JOB #: [id number] Transcribed By: am 11/01/19 14:42 Electronically signed by: JC Lord D.O. 11/03/19 07:04 Page 2 of 2 SALLY MCGREGOR Emergency Room Report urinalysis on 10-31 Calcium Ox 1+ NORMAL: NONE Normal 10-31-2019 [facility] (89740) Comment: Performed By: #### [id number] ## ## [facility] Hos[facility] natty,[address] [facility],[place] [facility] [address] Amorphous TRACE Normal 10-31-2019 [facility] (76089) Comment: Performed By: #### [id number] ## ## [facility],[address] [facility],[place] [address] Bacteria LM.HPF (Urine sed) TRACE Normal [facility] [#/Area] [facility] ( 19757) Comment: Performed By: #### [id number] ## ## [facility],9[address] [facility] [address] Bilirubin [Mass/Vol] NEG NORMAL: NEGATIVE mg/dL Normal [facility] ospital (14704) Comment: Performed By: #### [id number] ## ## [facility],[address] [facility] [address] Blood 25 NORMAL: NEGATIVE Abnormal 10-31-2019 [facility] (67085) Comment: Performed By: #### [id number] ## ## [facility],9[address] [facility] [address]951 Casts LM.LPF (Urine sed) NONE Normal 10-31 [facility] [/Area] [facility] ( 07388) Comment: Performed By: #### [id number] ## ## [facility],[address] [facility] [address] Clarity (U) clear NORMAL: CLEAR Normal 10-31-2019 [facility] (42392) Comment: Performed By: #### [id number] ## ## [facility],[address] [facility] [address] Color (U) yellow NORMAL: YELLOW Normal 10-31-2019 [facility] (38320) Comment: Performed By: #### [id number] ## ## [facility],[address] [facility] [address] Crystals LM Nom (Urine sed) SEE BELOW Normal [facility] ( 14108) Comment: Performed By: #### [id number] ## ## [facility],[address] [place] [address] 43543 Epi Cells MANY Normal 10-31-2019 [facility] (39366) Comment: Performed By: #### [id number] ## ## [facility],[address] [place] [address]311 Glucose [Mass/Vol] NORM NORMAL: NORMAL Normal 2019 [facility] ( [address]) Comment: Performed By: #### [id number] ## ## [facility] [place] [address] 63235 Ketone NEG NORMAL: NEGATIVE Normal 10-31-2019 [facility] (45312) Comment: Performed By: #### [id number] ## ## [facility],[address] [place] [address] 89883 Microscopic SEE BELOW Normal 10-31-2019 [facility] (35510) Comment: Result Comment: MICROSCOPIC Performed By: #### [id number] ## ## [facility] [place] [address] 80908 Mucous NONE Normal 10-31-2019 [facility] (73139) Comment: Performed By: #### [id number] ## ## [facility] [place] [address] 59625 Nitrite Ql (U) NEG NORMAL: NEGATIVE Normal 10-31-19 20 [facility] ( 02845) Comment: Performed By: #### [id number] ## ## [facility] [place] [address] 74905 pH (Bld) 5 NORMAL: 5.0-8.0 Normal 10-31-2019 [facility] (70832) Comment: Performed By: #### [id number] ## ## [facility],[address] [place] [address] 78181 Protein (U) NEG NORMAL: NEGATIVE mg/dL Normal 10-31-2019 [facility] [Mass/Vol] [facility] (96840) Comment: Performed By: #### [id number] ## ## [facility] [place] [address] 31290 Rbc 0-5 0-3/hpf Normal 10-31-2019 [facility] (56965) Comment: Performed By: #### [id number] ## ## [facility],[address] [place], [place] [id number] Sp Pony 1.030 NORMAL: 1.010-1.030 Normal 0 [facility] ( 01650) Comment: Performed By: #### [id number] ## ## [facility],[address] [place], [place] [id number] Specimen type Nom (Spec) UNSPECIFIED Normal [facility] ( 70783) Comment: Performed By: #### [id number] ## ## [facility],[address] [place], [place] [id number] Urobilinog NORM NORMAL: NORMAL Normal 10-31-2019 [facility] (97323) Comment: Performed By: #### [id number] ## ## [facility],[address] [place] [address] 05116 Wbc 1-5 0-5/hpf Normal 10-31-2019 [facility] (54777) Comment: Performed By: #### [id number] ## ## [facility],[address] [place] [address] 94575 WBC (Bld) [#/Vol] 25 NORMAL: NEGATIVE Abnormal 10-31 [facility] ( 45204) Comment: Performed By: #### [id number] ## ## [facility],[address] [place] [address] 56205 Yeast LM Ql (Urine sed) NONE Normal 2019 [facility] (59283) Comment: Performed By: #### [id number] ## ## [facility],[address] [facility] 08418 lipase on 2019-10-15 7 Lipase [Catalytic 40.0 18.0 - 51.0 U/L Normal 10-31-2019 [facility] activity/Vol] [facility] (83383) Comment: Performed By: #### [id number] ## ## [facility],[address] [facility] 51833 cmp with egfr on 03-11-16 Age - Reported 39 years Normal 10-31-2019 [facility] (44752) Comment: Performed By: #### [id number] ## ## [facility] [place] [address] 70364 Albumin [Mass/Vol] 4.4 3.4 - 4.8 g/dL Normal 10-31-2019 [facility] ( 70757) Comment: Performed By: #### [id number] ## ## [facility] [place] [address] 88081 Albumin/Globulin [Mass 1.3 0.9 - 1.6 {ratio} Normal 020 [facility]] [facility] (45431) Comment: Performed By: #### [id number] ## ## [facility],1 [facility] 04574 ALK PHOS 79 38 - 126 U/L Normal 10-31-2019 [facility] (75555) Comment: Performed By: #### [id number] ## ## [facility],1 [facility] 12528 ALT/SGPT 12 8 - 35 U/L Normal 10-31-2019 [facility] (96649) Comment: Performed By: #### [id number] ## ## [facility],1 [facility] 13366 Anion gap [Moles/Vol] 12 10 - 20 mmol/L Normal 10-31-19 [facility] ( 74597) Comment: Performed By: #### [id number] ## ## [facility],[address] [facility] 92066 AST/SGOT 13 13 - 39 U/L Normal 10-31-2019 [facility] (75000) Comment: Performed By: #### [id number] ## ## [facility],[address] [facility] [place] [address] B/C RATIO 18 0 - 30 ratio Normal 10-31-2019 [facility] (92092) Comment: Performed By: #### [id number] ## ## [facility],[address] [facility] 20601 Bilirubin [Mass/Vol] 0.4 0.0 - 1.5 mg/dl Normal 0 [facility] ( 54066) Comment: Performed By: #### [id number] ## ## [facility],[address] [place] [address] Calcium [Mass/Vol] 9.6 8.6 - 10.2 mg/dl Normal 10-31-2019 [facility] ( 32620) Comment: Performed By: #### [id number] ## ## [facility],[address] [place] [address] Chloride [Moles/Vol] 103 98 - 107 mmol/L Normal 0 [facility] ( 54722) Comment: Performed By: #### [id number] ## ## [facility],[address] [place] [address] CO2 [Moles/Vol] 25.8 21.0 - 31.0 mmol/L Normal 10-31-2019 [facility] ( 90084) Comment: Performed By: #### [id number] ## ## [facility] [facility] [place] [place] [address] Creatinine [Mass/Vol] 1.0 0.6 - 1.2 mg/dl Normal 10-31-19 20 [facility] ( 19815) Comment: Performed By: #### [id number] ## ## [facility],[address] [place] [address] 57096 GFR/1.73 sq M predicted among Normal 10-31-2019 [facility] non-blacks MDRD (S/P/Bld) [Vol Hospital (78617) rate/Area] Comment: Result Comment: COMPREHENSIV E METABOLIC PANEL Performed By: #### [id number] ## ## [facility],[address] [place] [address] 95312 GFR/1.73 sq M >60 60 - 999 mL/min/{1.73_m2} Normal 0 [facility] predicted among [facility] non-blacks MDRD (000 00) (S/P/Bld) [Vol [...] OF AGE AND OLDER. Performed By: #### [id number] ## ## [facility],[address] [place] [address] 04519 Globulin (S) [Mass/Vol] 3.3 1.5 - 3.8 G/DL Normal 2019 [facility] ( 29194) Comment: Performed By: #### [id number] ## ## [facility],[address] [place] [address] 34452 Glucose [Mass/Vol] 96 74 - 106 mg/dl Normal 10-31-2019 [facility] ( 26751) Comment: Performed By: #### [id number] ## ## [facility],[address] [place] [address] 10729 Potassium [Moles/Vol] 3.9 3.5 - 5.1 mmol/L Normal 10-31-19 [facility] ( 01075) Comment: Performed By: #### [id number] ## ## [facility],[address] [place] [address] 75859 Protein [Mass/Vol] 7.7 6.4 - 8.3 g/dl Normal 10-31-2019 [facility] ( 31680) Comment: Performed By: #### [id number] ## ## [facility],[address] [place] [address] 04282 Sodium [Moles/Vol] 137 136 - 145 mmol/l Normal 10-31-2019 [facility] ( 95814) Comment: Performed By: #### [id number] ## ## [facility],[address] [place] [address] 18309 Urea nitrogen [Mass/Vol] 18 6 - 20 mg/dl Normal 10-31 [facility] ( 72442) Comment: Performed By: #### [id number] ## ## [facility],[address] [place] [address] 94676 cbc + diff on 10-31 Basophils (Bld) 0.20 0.00 - 0.10 x10EE3/UL High 10-31-2019 [facility] [#/Vol] [facility] (55671) Comment: Performed By: #### [id number] ## ## [facility],[address] [place] [address] 81353 Basophils/100 WBC (Bld) 2.0 0.0 - 2.0 % Normal 2019 [facility] ( 08374) Comment: Performed By: #### [id number] ## ## [facility],[address] [place] [address] 65336 CBC + DIFF Normal 10-31-2019 [facility] (19697) Comment: Result Comment: CBC-COMPLETE BLOOD COUNT Performed By: #### [id number] ## ## [facility],[address] [place] [address] 22490 Eosinophils (Bld) 0.40 0.00 - 0.50 x10EE3/UL Normal 10-31-2019 [facility] [#/Vol] [facility] (65924) Comment: Performed By: #### [id number] ## ## [facility],[address] [place] [address] 90247 Eosinophils/100 WBC (Bld) 4.8 0.0 - 7.0 % Normal 10-15 [facility] ( 83595) Comment: Performed By: #### [id number] ## ## [facility],[address] [place] [address] 48286 Erythrocyte distribution 13.7 12.0 - 15.6 % Normal [facility] (RBC) [Ratio] [facility] (98327) Comment: Performed By: #### [id number] ## ## [facility],[address] [place] [address] 89222 Hematocrit (Bld) [Volume 35.8 34.0 - 46.0 % Normal [facility] ( 64243) Comment: Performed By: #### [id number] ## ## [facility],[address] [place] [address] 07994 Hemoglobin (Bld) 12.3 12.0 - 16.0 g/dl Normal 10-31-2019 [facility] [Mass/Vol] [facility] (04627) Comment: Performed By: #### [id number] ## ## [facility],[address] [place] [address] 75238 Lymphocytes (Bld) 2.70 0.80 - 2.80 x10EE3/UL Normal 10-31-2019 [facility] [#/Vol] [facility] (42380) Comment: Performed By: #### [id number] ## ## [facility],[address] [place] [address] 95564 Lymphocytes/100 WBC (Bld) 30.3 20.0 - 45.0 % Normal [facility] ( 30404) Comment: Performed By: #### [id number] ## ## [facility],[address] [place] [address] 08428 MANUAL DIFF N/A Normal 10-31-2019 [facility] (35771) Comment: Performed By: #### [id number] ## ## [facility],[address] [place] [address] 32757 MCH (RBC) [Entitic mass] 30 27 - 33 pg Normal 10-31 [facility] ( 82358) Comment: Performed By: #### [id number] ## ## [facility],[address] [place] [address] 66458 MCHC (RBC) [Mass/Vol] 34 32 - 36 X10 3 Normal 10-31-19 20 [facility] ( 89286) Comment: Performed By: #### [id number] ## ## [facility],[address] [place] [address] 28681 MCV (RBC) [Entitic vol] 88 80 - 99 fl Normal 2019 [facility] ( 42340) Comment: Performed By: #### [id number] ## ## [facility],[address] [place] [address] 27988 Monocytes (Bld) 0.50 0.20 - 1.00 x10EE3/UL Normal 10-31-2019 [facility] [#/Vol] [facility] (26850) Comment: Performed By: #### [id number] ## ## [facility],[address] [place] [address] 93168 MONOS % 5.4 0.0 - 10.0 % Normal 10-31-2019 [facility] (16600) Comment: Performed By: #### [id number] ## ## [facility],[address] [place] [address] 73996 Morphology Adrian (Bld) [Interp] N/A Normal 10-31-2019 [facility] ( 33635) Comment: Performed By: #### [id number] ## ## [facility],[address] [place] [address] 36041 Neutrophils (Bld) 5.10 1.50 - 7.10 x10EE3/UL Normal 10-31-2019 [facility] [#/Vol] [facility] (17822) Comment: Performed By: #### [id number] ## ## [facility],[address] [place] [address] 84084 Neutrophils/100 WBC (Bld) 57.5 46.0 - 76.0 % Normal [facility] ( 88818) Comment: Performed By: #### [id number] ## ## [facility],[address] [place] [address] 28396 Platelet mean volume 8.9 6.6 - 10.5 fl Normal 10-31-19 20 [facility] (d) [Entitic vol] [facility] (37831) Comment: Result Comment: AUTOMATED DI FFERENTIAL Performed By: #### [id number] ## ## [facility],[address] [place] [address] 28093 Platelets (Bld) 280 150 - 450 x10EE3/UL Normal 10-31-2019 [facility] [#/Vol] [facility] (91638) Comment: Performed By: #### [id number] ## ## [facility],[address] [place] [address] 15672 RBC (Bld) [#/Vol] 4.06 4.10 - 5.30 x 10EE6/UL Low 0 [facility] ( 07714) Comment: Performed By: #### [id number] ## ## [facility],[address] [place] [address] 30983 WBC (Bld) [#/Vol] 8.8 4.5 - 10.8 x 10EE3/UL Normal 10-31-2019 [facility] ( 72945) Comment: Performed By: #### [id number] ## ## [facility],[address] [facility] 69692 hemogram on 2019-09 Erythrocyte distribution 13.6 11.5-14.5 % Normal 10-08 [facility] width (RBC) [Ratio] (16790) Comment: Performed By: #### BMP3M, MG 3, HEMOG #### [facility] [address] [place], [place] Hematocrit (Bld) [Volume 33.3 35.0-47.0 % Low 10-08 [facility] fraction] (11264) Comment: Performed By: #### BMP3M, MG 3, HEMOG #### [facility] [address], [place] Hemoglobin (Bld) [Mass/Vol] 11.3 11.7-16.0 g/dL Low [facility] (80942) Comment: Performed By: #### BMP3M, MG 3, HEMOG #### [facility] [address], [place] MCH (RBC) [Entitic mass] 30.4 26.0-34.0 pg Normal 10-08 [facility] (94758) Comment: Performed By: #### BMP3M, MG 3, HEMOG #### [facility] [address], [place] MCHC (RBC) [Mass/Vol] 33.9 32.0-36.0 % Normal 10-08-19 [facility] (97035) Comment: Performed By: #### BMP3M, MG 3, HEMOG #### [facility] [address], [place] MCV (RBC) [Entitic vol] 89.9 79.0-98.0 fL Normal 2019 [facility] (72603) Comment: Performed By: #### BMP3M, MG 3, HEMOG #### [place] [address] [address] [place], [place] Platelet mean volume (Bld) 9.5 7.4-10.4 fL Normal [facility] [Entitic vol] (72334 ) Comment: Performed By: #### BMP3M, MG 3, HEMOG #### [facility] [address], [place] Platelets (Bld) [#/Vol] 240 140-440 10*3/uL Normal 2019 [facility] (08866) Comment: Performed By: #### BMP3M, MG 3, HEMOG #### [facility] [address], [place] RBC (Bld) [#/Vol] 3.70 3.80-5.20 10*6/uL Low 10-08-2019 S [facility] (89094) Comment: Performed By: #### BMP3M, MG 3, HEMOG #### [place] [address] [address] [place], [place] WBC (Bld) [#/Vol] 18.5 3.6-10.7 10*3/uL High 10-08-2019 S [facility] (89885) Comment: Performed By: #### BMP3M, MG 3, HEMOG #### [facility] [address], [place] ts gel on 2019-09-15 4 TS GEL ABO Group: Normal 10-07-2019 [facility] (48406) O Rh, Gel: POS Antibody Screen Gel: NEG Comment: Performed By: #### BMP3M, MG 3, HEMOG #### [facility] [address], [place] surgical pathology on 2019-10-07 Surgical [id number] Normal 10-07-2019 [facility] Pathology [facility] DEPARTMENT OF [facility] System PATHOLOGY AND (03711 ) LABORATORY MEDICINE [address] [place] [address] FINAL SURGICAL PATHOLOGY REPORT NAME: SALLY MCGREGOR : 1980 39 Y Donato CRISTOBAL NO.: [id number] LOCATION: I 5117 01 PROCEDURE 10/07/2019 DATE: [...] determined by the clinical labor atories of [facility]. They have not been cleared by the [facility] od and Drug Administration (FDA). The FDA [...] Results should be interpreted with caution given [facility] raised possibility of false negativity on decalcified specimens. Professional Performing Location: [address] [address]. DEPARTMENT OF PATHOLOGY AND LABORATORY MEDICINE [place], [place] [address] op note on Op Note PATIENT: SALLY MCGREGOR - [facility] ([id number]) ADMISSION DATE: 10/07/2019 SURGERY DATE: 10/07/2019 DATE OF : 1980 AGE: 39 ADMITTING PHYSICIAN: Delon Palacios MD ATTENDING PHYSICIAN: Delon Palacios MD DICTATING PHYSICIAN: Dleon Palacios MD OPERATIVE RECORD Procedure: REMOVAL OF [...] mass from a prior exam done in [facility] office. She underwent abdominal prep and [...] with a minimal EBL. [employer] Job ID: [id number] Delon Palacios MD DOD:10/07/2019 10:46 A /semaj DOT:10/07/2019 12:51 P Job Number: [id number] Document Number: [id number] cc: Delon Palacios MD [employer] Critical access hospital [address] Lui Harris MD [address] [place] [address], [address] [facility] [address] follicle stim hormone on 2019-09-15 Follicle Stim Hormone 6.5 m[IU]/mL Normal 09-15-19 [facility] [employer] [facility] (50301) Comment: Result Comment: Females: Follicular Phase ...... 2.3- 12.6 Mid-cycle Peak ........ 5.2- 17.5 Luteal Phase .......... 1.7- 12.9 Post-menopausal ....... 12.7 -132.2 Males: 0.7-10.8 Performed By: #### FSH3 #### [facility] [address] [place] [address] us pelvis ta/tv on 2019-09-11 US Pelvis TA/TV Patient Name: SALLY MCGREGOR 09-11-2019 [facility] ([id number] ) Ultrasound Exam Date/Time 09/11/2019 14:17:16 EST Exam US Pelvis TA/TV Ordering Physician MARLA ARNDT REBECCA E. Accession Number [id number] CPT4 Codes 61418 (US Pelvis TA/TV), 27811 (US Transvaginal) Reason For Exam right ovarian mass seen on CT, s/p hysterectomy Report EXAMINATION: Transabdominal and transvaginal pelvic ultrasound. COMPARISON: CT scan of 09/11/2019 from [facility]. REASON FOR STUDY: Right ovarian mass; prior [...] Baso Cnt 0.0 0.0-0.2 10*3/uL Normal 09-05-2019 [facility] (32586) Comment: Performed By: #### HEMDF, BM P3 #### [facility] [address] [place] [address] Abs Neutrophile Cnt 3.9 1.8-7.0 10*3/uL Normal 09-05-2019 [facility] (46466) Comment: Performed By: #### HEMDF, BM P3 #### [facility] [address] [place] [address] Basophils/100 WBC (Bld) 0.3 0.0-2.0 % Normal 2018 [facility] (76083) Comment: Performed By: #### HEMDF, BM P3 #### [place] [address] [place] [address] Eosinophils (Bld) [#/Vol] 0.2 0.0-0.5 10*3/uL Normal 08-15 [facility] (81407) Comment: Performed By: #### HEMDF, BM P3 #### [facility] [place] [address] Eosinophils/100 WBC (Bld) 3.3 1.0-6.0 % Normal 08-15 [facility] (80100) Comment: Performed By: #### HEMDF, BM P3 #### [place] [address] [place] [address] Erythrocyte distribution 12.9 11.5-14.5 % Normal 09-05 [facility] width (RBC) [Ratio] (79904) Comment: Performed By: #### HEMDF, BM P3 #### [place] [address] [place] [address] Granulocytes/100 WBC (Bld) 55.5 40.0-80.0 % Normal [facility] (64512) Comment: Performed By: #### HEMDF, BM P3 #### [place] [address] [place] [address] Hematocrit (Bld) [Volume 34.8 35.0-47.0 % Low 09-05 [facility] fraction] (54548) Comment: Performed By: #### HEMDF, BM P3 #### [facility] [address] [place] [address] Hemoglobin (Bld) [Mass/Vol] 11.5 11.7-16.0 g/dL Low [facility] (49579) Comment: Performed By: #### HEMDF, BM P3 #### [place] [address] [address] [place], [place] Lymphocytes (Bld) [#/Vol] 2.5 1.0-4.3 10*3/uL Normal 08-15 [facility] (18307) Comment: Performed By: #### HEMDF, BM P3 #### [place] [address] [address] [place], [place] Lymphocytes/100 WBC (Bld) 35.4 20.0-40.0 % Normal 08-15 [facility] (25816) Comment: Performed By: #### HEMDF, BM P3 #### [place] [address] [address] [place], [place] MCH (RBC) [Entitic mass] 29.9 26.0-34.0 pg Normal 09-05 [facility] (93025) Comment: Performed By: #### HEMDF, BM P3 #### [place] [address] [address] [place], [place] MCHC (RBC) [Mass/Vol] 33.0 32.0-36.0 % Normal 09-05-20 19 [facility] (92454) Comment: Performed By: #### HEMDF, BM P3 #### [place] [address] [address] [place], [place] MCV (RBC) [Entitic vol] 90.7 79.0-98.0 fL Normal 2018 [facility] (74112) Comment: Performed By: #### HEMDF, BM P3 #### [place] [address] [address] [place], [place] Monocytes (Bld) [#/Vol] 0.4 0.0-0.8 10*3/uL Normal 2018 [facility] (50907) Comment: Performed By: #### HEMDF, BM P3 #### [facility] [employer] [facility] [address] [place] [address] Monocytes/100 WBC (Bld) 5.5 2.0-10.0 % Normal 2018 [facility] (10231) Comment: Performed By: #### HEMDF, BM P3 #### [facility] [employer] [place] [address] [address], [place] Platelet mean volume (Bld) 9.8 7.4-10.4 fL Normal [facility] [Entitic vol] (61399 ) Comment: Performed By: #### HEMDF, BM P3 #### [place] [address] [address] [place], [place] Platelets (Bld) [#/Vol] 204 140-440 10*3/uL Normal 2018 [facility] (84533) Comment: Performed By: #### HEMDF, BM P3 #### [place] [address] [address] [place], [place] RBC (Bld) [#/Vol] 3.83 3.80-5.20 10*6/uL Normal 09-05-2019 S [facility] (78026) Comment: Performed By: #### HEMDF, BM P3 #### [place] [address] [address] [place], [place] WBC (Bld) [#/Vol] 7.0 3.6-10.7 10*3/uL Normal 09-05-2019 S [facility] (48848) Comment: Performed By: #### HEMDF, BM P3 #### [place] [address] [address] [place], [place] cr urography retrograde w/ + w/o kub on 2019-09-05 CR Urography Patient Name: SALLY MCGREGOR Normal 09-05-2019 [facility] Retrograde w/ + w/o System (29674) KUB Diagnostic Radiology Exam Date/Time 09/05/2019 08:12:21 EST Exam CR Urography Retrograde w/ + w/o KUB Ordering Physician MAUREEN STONE Accession Number [id number] CPT4 Codes 17958 () Reason For Exam Renal stone fluro c arm c and p Report A total of 1 minute and 11 seconds of fluoro time was used in the Operating Suite for this procedure. No other report will be generated. Final Signed Date and Time: 09/26/2019 2:02 pm Signed by: PSYCHOLOGIST CLINICAL, SYSTEM Transcribed Date and Time: 09/26/2019 1:19 Transcribed By:KRISTAN basic metabolic panel on 2019-09-05 Calcium [Mass/Vol] 8.7 8.4-10.4 mg/dL Normal 09-05-2019 [facility] (51914) Comment: Performed By: #### HEMDF, BM P3 #### [facility] [address] [place] [address] Anion gap [Moles/Vol] 7 Normal 09-05-20 [facility] (62005) Comment: Performed By: #### HEMDF, BM P3 #### [facility] [employer] [facility] [address] [place] [address] CO2 [Moles/Vol] 24 22-30 mmol/L Normal 09-05-2019 [facility] (81377) Comment: Performed By: #### HEMDF, BM P3 #### [facility] [address] [place] [address] Creatinine [Mass/Vol] 0.79 0.52-1.25 mg/dL Normal 09-05-20 [facility] (04466) Comment: Performed By: #### HEMDF, BM P3 #### [facility] [employer] [facility] [address] [place] [address] GFR/1.73 sq M > 60.0 >60 mL/min/{1.73_m2} Normal 9 [facility] predicted among Syst em (80324) blacks MDRD (S/P/Bld) [Vol rate/Area] Comment: Performed By: #### HEMDF, BM P3 #### [facility] [employer] [facility] [address] [place] [address] GFR/1.73 sq M > 60.0 >60 mL/min/{1.73_m2} Normal 9 [facility] [employer] predicted among Syst em (32562) non-blacks MDRD (S/P/Bld) [Vol rate/Area] Comment: Result Comment: Source- MDRD equation with creatinine calibration to IDMS(NKDEP) eGFR not recommended for dylon g dose adjustment Performed By: #### HEMDF, BM P3 #### [employer] [place] [address], [place] Glucose [Mass/Vol] 85 70-100 mg/dL Normal 09-05-2019 [facility] ([id number]) Comment: Performed By: #### HEMDF, BM P3 #### [employer] [place] [address], [place] Urea nitrogen [Mass/Vol] 5 7-20 mg/dL Low 09-05 [facility] (57723) Comment: Performed By: #### HEMDF, BM P3 #### [employer] [place] [address], [place] Chloride [Moles/Vol] 108 98-107 mmol/L High 9 [facility] [employer] [facility] (96850) Comment: Performed By: #### HEMDF, BM P3 #### [employer] [place] [address], [place] Potassium [Moles/Vol] 4.0 3.5-5.1 mmol/L Normal 09-05-20 19 [facility] [employer] [facility] (90291) Comment: Performed By: #### HEMDF, BM P3 #### [employer] [place] [address], [place] Sodium [Moles/Vol] 140 135-145 mmol/L Normal 09-05-2019 [facility] (86139) Comment: Performed By: #### HEMDF, BM P3 #### [employer] [place] [address], [place] magnesium on 2018-09-22 Magnesium [Mass/Vol] 1.9 1.6-2.3 mg/dL Normal 9 [facility] [employer] [facility] (52184) Comment: Performed By: #### BMP3M, MG 3, HEMOG #### [facility] [address], [place] hemogram on 2019-08 Erythrocyte distribution 13.2 11.5-14.5 % Normal 09-04 [facility] width (RBC) [Ratio] (88235) Comment: Performed By: #### BMP3M, MG 3, HEMOG #### [facility] [address], [place] Hematocrit (Bld) [Volume 36.7 35.0-47.0 % Normal 09-04 [facility] fraction] (18977) Comment: Performed By: #### BMP3M, MG 3, HEMOG #### [facility] [address], [place] Hemoglobin (Bld) 12.3 11.7-16.0 g/dL Normal 09-04-2019 [facility] [Mass/Vol] (26799) Comment: Performed By: #### BMP3M, MG 3, HEMOG #### [facility] [address], [place] MCH (RBC) [Entitic mass] 30.6 26.0-34.0 pg Normal 09-04 [facility] (78124) Comment: Performed By: #### BMP3M, MG 3, HEMOG #### [place] [address], [place] MCHC (RBC) [Mass/Vol] 33.5 32.0-36.0 % Normal 09-04-20 19 [facility] (92367) Comment: Performed By: #### BMP3M, MG 3, HEMOG #### [facility] [address], [place] MCV (RBC) [Entitic vol] 91.3 79.0-98.0 fL Normal 2018 [facility] (83861) Comment: Performed By: #### BMP3M, MG 3, HEMOG #### [facility] [address], [place] Platelet mean volume (Bld) 10.4 7.4-10.4 fL Normal [facility] [Entitic vol] (14516 ) Comment: Performed By: #### BMP3M, MG 3, HEMOG #### [facility] [address], [place] Platelets (Bld) [#/Vol] 211 140-440 10*3/uL Normal 2018 [facility] (40847) Comment: Performed By: #### BMP3M, MG 3, HEMOG #### [facility] [address], [place] RBC (Bld) [#/Vol] 4.02 3.80-5.20 10*6/uL Normal 09-04-2019 [facility] (03903) Comment: Performed By: #### BMP3M, MG 3, HEMOG #### [place] [address], [place] WBC (Bld) [#/Vol] 7.1 3.6-10.7 10*3/uL Normal 09-04-2019 [facility] (82147) Comment: Performed By: #### BMP3M, MG 3, HEMOG #### [place] [address], [place] culture urine on 01-09-22 CULTURE URINE CULTURE URINE --> Status: F Normal 09-04-2019 [facility] No growth (<1,000 CFU/ml). (45526) Comment: Order Comment: Specimen Sour ce Comment:Urine, clean catch Performed By: #### C/UR #### [place] [address], [place] basic metabolic panel on 2019-09-04 Potassium [Moles/Vol] 3.5 3.5-5.1 mmol/L Normal 09-04-20 [facility] (22820) Comment: Performed By: #### BMP3M, MG 3, HEMOG #### [facility] [address], [place] Anion gap [Moles/Vol] 9 Normal 09-04-20 [facility] (92861) Comment: Performed By: #### BMP3M, MG 3, HEMOG #### [facility] [address], [place] Calcium [Mass/Vol] 8.8 8.4-10.4 mg/dL Normal 09-04-2019 [facility] (52813) Comment: Performed By: #### BMP3M, MG 3, HEMOG #### [place] [address], [place] CO2 [Moles/Vol] 26 22-30 mmol/L Normal 09-04-2019 [facility] (05087) Comment: Performed By: #### BMP3M, MG 3, HEMOG #### [place] [address], [place] Glucose [Mass/Vol] 76 70-100 mg/dL Normal 09-04-2019 [facility] (27512) Comment: Performed By: #### BMP3M, MG 3, HEMOG #### [place] [address], [place] Urea nitrogen [Mass/Vol] 10 7-20 mg/dL Normal 09-04 [facility] (17591) Comment: Performed By: #### BMP3M, MG 3, HEMOG #### [place] [address], [place] Creatinine [Mass/Vol] 0.81 0.52-1.25 mg/dL Normal 09-04-20 19 [facility] (07921) Comment: Performed By: #### BMP3M, MG 3, HEMOG #### [place] [address], [place] GFR/1.73 sq M > 60.0 >60 mL/min/{1.73_m2} Normal 9 [facility] predicted among Syst em (70982) blacks MDRD (S/P/Bld) [Vol rate/Area] Comment: Performed By: #### BMP3M, MG 3, HEMOG #### [place] [address], [place] GFR/1.73 sq M > 60.0 >60 mL/min/{1.73_m2} Normal 9 [facility] predicted among Syst em (44110) non-blacks MDRD (S/P/Bld) [Vol rate/Area] Comment: Result Comment: Source- MDRD equation with creatinine calibration to IDMS(NKDEP) eGFR not recommended for dylon g dose adjustment Performed By: #### BMP3M, MG 3, HEMOG #### [facility] [address], [place] Sodium [Moles/Vol] 138 135-145 mmol/L Normal 09-04-2019 [facility] (71059) Comment: Performed By: #### BMP3M, MG 3, HEMOG #### [facility] [address], [place] Chloride [Moles/Vol] 103 98-107 mmol/L Normal 9 [facility] (71441) Comment: Performed By: #### BMP3M, MG 3, HEMOG #### [facility] [employer] [facility] [address], [place] cr abdomen ap on 01-09-21 CR Abdomen AP Patient Name: SALLY MCGREGOR 09-03-2019 [facility] ([id number] ) Diagnostic Radiology Exam Date/Time 09/03/2019 17:35:36 EST Exam CR Abdomen AP Ordering Physician MD RACH,CONCHIS J Accession Number [id number] CPT4 Codes 27275 () Reason For Exam nephrolithiasis Report ABDOMEN, [...] on 2019-08-03 [facility]CO Letter Text Normal 08-03-2019 [facility] (37182) xr sacrum/coccyx 3v ap/lat on 2019-07-21 XR SACRUM/COCCYX 3V * * *Final Report* * * Normal 07-21-2019 [place] AP/LAT DATE OF EXAM: Jul 21 2019 11:38AM [facility] WOX 5246 - XR SACRUM/COCCYX 3V AP/LAT / 4 [place] PROCEDURE REASON: multiple diagnoses (72978) * * * * Physician Interpretation * [...] BONY ABNORMALITY IN THE PELVIS SEGMENT COCCYX. Cig[employer] Packer [employer] Sorter: PSCB Transcribe Date/Time: Jul 21 2019 4:01P Dictated by : ESTEE CUMMINGS MD This examination was interpreted and the report reviewed and electronically signed by: ESTEE CUMMINGS MD on Jul 21 2019 4:06PM EST [id number] xr lumbar 3v ap/lat/l5-s1 on 2019-07-21 XR LUMBAR 3V * * *Final Report* * * Normal [place] AP/LAT/L5-S1 DATE OF EXAM: Jul 21 2019 11:38AM [facility] WOX 5228 - XR LUMBAR 3V AP/LAT/L5-S1 / [place] PROCEDURE REASON: multiple diagnoses (30220) * * * * Physician Interpretation * [...] BONY ABNORMALITY IN THE PELVIS SEGMENT COCCYX. C[facility] P[facility] Transcribe Date/Time: Jul 21 2019 4:01P Dictated by : ESTEE CUMMINGS MD This examination was interpreted and the report reviewed and electronically signed by: ESTEE CUMMINGS MD on Jul 21 2019 4:06PM EST [id number] tsh on 2019-07-21 TSH Qn 1.510 0.270-4.200 uU/mL Normal 07-21-2019 [facility] (94936) Comment: Result Comment: If the patie nt [...] et al. 2017 Guide lines of the English Thyroid Association for the Diagnosis and Management of Thyroid Disease during and the . Thyroid, 2017:27:3:315-389. Performed By: #### HBA1C, TS Julieth, MORIAH #### [facility] [address] [place] [id number] progress on 2019-07 PROGRESS HNO ID: [id number] Normal 07-21-2019 [facility] Author: Elena Stauffer [place] ([id number]) Service: ? Author Type: ? Type: Progress [...] 21, 2019 11:23 AM PROGRESS HNO ID: [id number] Normal 07-21-2019 [facility] Author: Randi Arias [place] ([id number]) Service: ? Author Type: Physician Staff Command And Control Officer Type: Progress Notes Filed: 07/21/2019 11:26 AM [...] Benign liver cyst 05/24/2010 CT scan at [facility] 11/2009 and 04/2010 showe 4 mm increase in size . No pain. No elevated LFTs on 03/11/2010. - Calculus of kidney 05/17/[address] Nicolas: Hospitalized age 20, and again later -- no procedures so far ([facility], [facility], 1995 [facility]) - Dysmenorrhea - Impaired fasting [...] removed - TOTAL ABDOM HYSTERECTOMY 08/31/06 Hysterectomy, [facility] Family History FAMILY HISTORY Problem Relation Age [...] activity: Yes Partners: Male control/protection: Surgical Comment: [facility] Lifestyle Physical activity: Days per week: Not on file Minutes per session: Not on file Stress: Not on file Relationships Social connections: Talks on phone: Not on file Gets together: Not on file Attends adventist service: Not on file Active member of [...] Cholesterol [Mass/Vol] 206 <200 mg/dL High 019 [facility] (73868) Comment: Result Comment: <200 mg/dL, Desirable 200-239 mg/dL, Borderline hi gh >239 mg/dL, High Performed By: #### HBA1C, TS H, LIPNF #### [facility] [address] [place], [place] [address] Cholesterol in 2.39 <2.54 mg/dL Normal 07-21-2019 [facility] LDL/Cholesterol in HDL [Mass [place] (92838) ratio] Comment: Result Comment: Reference: 1. National Cholesterol Educ ation Program ATP III Guideline At-A-Glance Quick Desk Reference: National Heart, Lung, and Blood Rubicon. National Institutes of Health. 2001: NIH Publication No. 01-3305. 2. An International Atherosc lerosis Society position paper: global recommendations for the management of dyslipidemia: executive summary, Atherosclerosis. 2014: 232(2):410-413. Performed By: #### HBA1C, TS H, LIPNF #### [facility] [address] [place], [place] [address] Cholesterol.total/Cholesterol in 4.04 <5.10 mg/dL Normal 07-21-2019 [place] HDL [Mass ratio] Cli nghia [place] (85622) Comment: Performed By: #### HBA1C, TS H, LIPNF #### [facility] [address] [place], [place] [address] HDL Cholesterol, NF 51 >39 mg/dL Normal 07-21-2019 [facility] (00893) Comment: Result Comment: 40-59 mg/dL, Acceptable >59 mg/dL, High: Negative ri sk factor for coronary heart disease <40 mg/dL, Low: Positive ris k factor for coronary heart disease Performed By: #### HBA1C, TS H, LIPNF #### [facility] [address] [place], [place] [address] LDL Cholesterol, NF 122 <100 mg/dL High 07-21-2019 [facility] (60061) Comment: Result Comment: <100 mg/dL, Optimal 100-129 mg/dL, Near optimal/ above optimal 130-159 mg/dL, Borderline hi gh 160-189 mg/dL, High >189 mg/dL, Very high Secondary prevention optimal LDL Cholesterol levels are recommended to be < 70 mg/dL Performed By: #### HBA1C, TS H, LIPNF #### [facility] [address] [place] [address] Non HDL Chol, NF 155 <130 mg/dL High 07-21-2019 Cl [facility] (65069) Comment: Result Comment: <130 mg/dL, Optimal 130-159 mg/dL, Near optimal/ above optimal 160-189 mg/dL, Borderline hi gh 190-219 mg/dL, High >219 mg/dL, Very high Secondary prevention optimal non HDL Cholesterol levels are recommended to be < 100 mg/dL Performed By: #### HBA1C, TS H, LIPNF #### [facility] [address] [place] [address] Triglycerides, NF 163 <150 mg/dL High 07-21-2019 C [facility] (49523) Comment: Result Comment: <150 mg/dL, Normal 150-199 mg/dL, Borderline hi gh 200-499 mg/dL, High >499 mg/dL, Very high Performed By: #### HBA1C, TS H, LIPNF #### [facility] [address] [place] [address] VLDL Cholesterol, NF 33 <30 mg/dL High 9 [facility] (95062) Comment: Performed By: #### HBA1C, TS H, LIPNF #### [facility] [address] [place] [address] hemoglobin a1c on HbA1c (Bld) [Mass fraction] 5.3 4.3-5.6 % Normal [facility] (02108) Comment: Result Comment: English Marya betes Association guidelines indicate that patients with HgbA1c in the range 5.7-6.4% are at increased risk for development of diabetes, and intervention by lifestyle modification may be beneficial. HgbA1c greater o r equal to 6.5% is considered diagnostic of diabetes. Performed By: #### HBA1C, TS H, LIPNF #### [facility] [address] [place] [address] HbA1c (Bld) [Mass fraction] 105 mg/dL Normal [facility] (08738) Comment: Result Comment: eAG: (Jaimiea anrie average glucose) is a calculated value from HgbA1c and is sales representative womens health of the average blood glucose level in the last 2-3 month period. Performed By: #### HBA1C, TS H, LIPNF #### [facility] [address] [place], [place] [id number] cnov on 2019-07-21 CNOV Office Visit (FAMPWS) Normal 07-21-20 [place] [facility] SALLY MCGREGOR ([id number]) 1980 [facility] Date Time Provider Department ([id number]) 07/21/19 10:40 AM JAY ARIAS) FAMPWS During [...] Benign liver cyst 05/24/2010 CT scan at [facility] 11/2009 and 04/2010 showe 4 mm increase in size . No pain. No elevated LFTs on 03/11/2010. - Calculus of kidney 05/17/[address] Nicolas: Hospitalized age 20, a nd again later -- no procedures so far ([facility], [facility], 1995 [facility]) - Dysmenorrhea - Impaired fasting [...] removed - TOTAL ABDOM HYSTERECTOMY 08/31/06 Hysterectomy, [facility] Family History FAMILY HISTORY Problem Relation Age [...] activity: Yes Partners: Male control/protection: Surgical Comment: [facility] Lifestyle Physical activity: Days per week: Not on file Minutes per session: Not on file Stress: Not on file Relationships Social connections: Talks on phone: Not on file Gets together: Not on file Attends adventist service: Not on file Active member of [...] Z13.6] Order(s):CONSULT TO NEUROLOGY [9019] Order #: [id number]: 1 FUTURE amitriptyline (ELAVIL) 50 mg tabletTake 1 tablet by mouth da federico at bedtime.Disp: 30 tabletRfl: 5 XR LUMBAR GENERAL 3V AP/LAT/L5-S1 [6516761] Order #: [id number] FUTURE XR SACRUM/COCCYX 3V AP/LAT [[id number]] Order #: [id number] FUT URE TSH BLD [SQTSH] Order #: [id number] FUTURE HGB A1C [REXCN8M] Order #: [id number] FUTURE LIPID PANEL, NONFASTING [SQLIPNF] Order #: [id number] FUTURE cyclobenzaprine (FLEXERIL) 10 mg tabletTake 1 [...] - 3. Body Temperature 97.81 [degF] 05-17-2020 [facility] [place] [facility] (12324) Body Temperature 97.9 [degF] 05-08-2020 [facility] (52592) Body weight 89.9 kg 05-17-2020 [facility] (65471) Body weight 93.89 kg 05-08-2020 [facility] (36089) BP Diastolic 82 mm[Hg] 05-17-2020 [facility] (14636) BP Diastolic 76 mm[Hg] 05-08-2020 [facility] (34492) BP Systolic 124 mm[Hg] 05-17-2020 [facility] (68430) BP Systolic 121 mm[Hg] 05-08-2020 [facility] (70665) Height 154.9 cm 05-08-2020 [facility] (60878) Pulse (Heart Rate) 86 /min [facility]-17-[facility]34795[facility] Pulse (Heart Rate) 91 /min 05-08-2020 [facility] ng[facility]ia (72274) Pulse Oximetry 97 % 05-08-2020 [facility] (16726) Respiratory Rate 16 /min 05-17-2020 [facility] (76327) Respiratory Rate 18 /min 05-08-2020 [facility] (11945) Encounters Date Type Reason Provider Location 06-25-2020 - Chart abstracting Postoperative pain Noaman Tanesha [facility] 06-25-2020 [facility] Comment: Refill Request 05-23-2020 - E-mail encounter Isabel Romero) [facility] 05-23-2020 from carer Hugo 03-24-2020 - Emergency Migraine, CORBY Johnston 03-24-2020 department unspecified, not [facility] patient visit intractableCORBY (34574) without status [facility] migrainosus CORBY M OLVIN ARIAS UNKNOWN PROVIDER 01-21-2020 - Emergency ANA Johnston 01-21-2020 [facility] ANA ALVARADO ([id number]) JENNIFER ARIAS UNKNOWN PROVIDER 11-25-2019 - Emergency ANA Johnston 11-25-2019 department [facility] al patient visit ANA ALVARADO ([id number]) JENNIFER ARIAS UNKNOWN PROVIDER 10-31-2019 - Emergency Lower abdominal NIKHIL Moreira e 10-31-[facility] unspecified NIKHIL Shannon ([id number]) JEAN ARIAS UNKNOWN PROVIDER 04-26-2020 - Letter encounter [facility] 04-26-2020 [facility] 05-14-2020 - Orders Only Liver cyst Johnny [facility]cc[facility] Comment: Liver cyst (Primary Dx) 05-11-2020 - Orders Only Idiopathic acute Johnny Mccall [facility] [place] 05-11-2020 pancreatitis [facility] Comment: Idiopathic acute pancreatiti s, unspecified complication status (Primary Dx) surgical referral 05-10-2020 - Orders Only Idiopathic acute [facility] Mccall [facility] [place] 05-10-2020 pancreatitis [facility] Comment: Idiopathic acute pancreatiti s, unspecified complication status (Primary Dx) 06-05-2020 - Patient encounter Cyst of pancreas Mala [facility] 06-05-2020 procedure [facility] Comment: Pancreatic cyst (Primary Dx) 05-30-2020 - Patient [facility] Provider Adolfo lyle 05-30-2020 encounter procedure 05-24-2020 - Patient Abdominal Johnny Mccall Gastroenterolog [facility] 05-24-2020 encounter bloating [facility] procedure Comment: Bloating (Primary Dx); Nausea and vomiting, intract ability of vomiting not specified, unspecified vomiting type; Diarrhea, unspecified type 05-23-2020 Patient encounter Postoperative pain Isabel Romero) [facility] procedure Arias [place] Comment: RE: Appointment Request 05-17-2020 - Patient encounter Shoulder pain Xr [facility] [place] Radiolo gy 05-17-2020 procedure Kenia (Jaki) Bartolo Bernard (Jaki) Bartolo Comment: Radiology XR Acute pain of right shoulder (Primary Dx) 04-30-2020 - Patient encounter Generalized abdominal Us [facility] ad[facility] 04-30-2020 procedure pain Mob 1 Comment: Radiology US 05-30-2020 Results Only [facility] Provider [facility] Department 05-08-2020 - Subsequent Generalized Johnny Mccall Ambulatory 05-08-2020 hospital visit by abdominal pain [facility] Surgery physician Comment: Generalized abdominal pain [ R10.84] 06-05-2020 - Telemedicine Mala Almendarez [facility] c 06-05-2020 consultation with patient 05-24-2020 - Telemedicine Johnny Mccall [facility] 05-24-2020 consultation with Hannah patient 06-15-2020 - Telephone encounter Local infection 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 (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 [facility] 06-15-2020 of wound [employer] 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) [facility]ERY DEPARTMENT Comment: Multiple Concerns 05-31-2020 - Telephone encounter Johnny Mccall Gastroen terology [place] 05-31-2020 [facility] Comment: Patient Update 05-18-2020 - Telephone Shoulder pain Marcelino Mejia [facility] 05-18-2020 encounter [place] Comment: Referral Request 05-07-2020 - Telephone encounter Johnny Mccall Gastroen terology [place] 05-07-2020 [facility] Comment: Patient Update 05-01-2020 - Telephone encounter Johnny Mccall Gastroen terology [place] 05-01-2020 [facility] Comment: Results 04-30-2020 - Telephone encounter Johnny Mccall Gastroen terology [place] 04-30-2020 [facility] Comment: Returning Patient's Call 04-27-2020 - 04-27-2020 Telephone encounter Marcelino Mejia [facility] Comment: Medication request Procedures Procedure Name Date Provider Location Antibody screen 06-11-2020 [facility] ([id number]) Comment: Performed By: #### CBCD1 ### # [place] [address] CARDIAC 05-30-2020 [facility] Provider [facility] (05971) Radex shoulder complete minimum 2 05-17-2020 - Kenia (Jaki) [facility] views 05-17-2020 [facility] (57611) SURGICAL PATHOLOGY 05-08-2020 Johnny Mccall [place] [facility] [place] (47839) Colonoscopy flx dx w/collj spec 05-08-2020 [facility] Provider [facility] when pfrmd (43726) Esophagogastroduodenoscopy 05-08-2020 [facility] Provider [facility] transoral diagnostic (10997) Us abdominal real time w/image 04-30-2020 - Johnny Mccall [facility] limited 04-30-2020 [facility] (18916) Urinalysis 10-31-2019 [facility] l (30906) Comment: Result Comment: URINALYSIS Performed By: #### [id number] ## ## [facility],[address] [place] [address] Plan of Treatment Plan Description Date Location DTAP,TDAP,TD (2 - Td) DTAP,TDAP,TD (2 - Td) 05-28-2025 - [facility] 05-28-2025 (66853) INFLUENZA (#1) INFLUENZA (#1) 2020 - [facility] 05-15-2020 (47147) MAMMOGRAM MAMMOGRAM 2019 - [facility] 2019 (72736) COLONOSCOPY COLONOSCOPY 1997 - [facility] 1997 (45807) HEPATITIS C SCREENING HEPATITIS C SCREENING 1997 - [facility] 1997 (69309) HIV SCREENING HIV SCREENING 1997 - [facility] 1997 (48960) COLONOSCOPY - COLONOSCOPY - DIAGNOSTIC 05-08-2020 [facility] DIAGNOSTIC Endoscopy Routine (40680) Generalized abdominal pain Loose stools Dyspepsia Gastroesophageal reflux disease, esophagitis presence not specified Other dysphagia History of acute pancreatitis Bloating Nausea and vomiting, intractability of vomiting not specified, unspecified vomiting type 1 Occurrences starting 05/08/2020 until 05/08/2020 Comment: 1 Occurrences starting 05/08 until 05/08/2020 EGD EUS EGD EUS Endoscopy Routine Idiopathic 05-10-2021 [facility] (30185) acute pancreatitis, unspecified complication status 1 Occurrences starting 05/10/2020 until 05/10/2021 Comment: 1 Occurrences starting 05/10 until 05/10/2021 EGD EGD Endoscopy Routine Generalized abdominal 04-15 [facility] (52412) pain Loose stools Dyspepsia Gastroesophageal reflux disease, esophagitis presence not specified Other dysphagia History of acute pancreatitis Bloating Nausea and vomiting, intractability of vomiting not specified, unspecified vomiting type 1 Occurrences starting 05/08/2020 until 05/08/2020 Comment: 1 Occurrences starting 05/08 until 05/08/2020 MRI ABDOMEN WO/W IVCON MRI ABDOMEN WO/W IVCON 07-05-2021 Cl [facility] (15182) Radiology Routine Pancreatic cyst 1 Occurrences starting 06/05/2020 until 07/05/2021 Comment: 1 Occurrences starting 06/05 until 07/05/2021 PRE-PROCEDURE & PRE-PROCEDURE & 05-10-2021 [facility] PRE-OPERATIVE COVID PRE-OPERATIVE COVID (52635) Microbiology Routine Idiopathic acute pancreatitis, unspecified complication status 1 Occurrences starting 05/10/2020 until 05/10/2021 Comment: 1 Occurrences starting 05/10 until 05/10/2021 SURGICAL PATHOLOGY SURGICAL PATHOLOGY Lab Routine [facility] (09238) 05/08/2020 1:17 PM EDT no information [facility] (53804) Immunizations Vaccine Notes Status Date Location Influenza Seasonal influenza, seasonal, (completed) 05-11-2020 - [facility] Inj Age 3+ injectable 05-11-2020 (47062) Influenza Seasonal influenza, seasonal, (completed) 05-31-2019 - [facility] Inj Age 3+ injectable 05-31-2019 (93421) Pneumovax pneumococcal (completed) 05-19-2017 - [facility] c polysaccharide vaccine, 05-19-2017 (441 95) 23 valent Tdap (Age 7+) tetanus toxoid, reduced (completed) 05-28-2015 - [facility] diphtheria toxoid, and 05-28-2015 (4419 5) acellular pertussis vaccine, adsorbed Payers Payer Name Policy Number Location [facility] [id number] [facility] OUTPATIENT ([id number]) [place] [employer] [id number] [facility] [phone] [id number] [facility] ([id number]) [id number] [facility] ([id number]) [id number] [facility] ([id number]) [id number] [facility] ([id number]) The following information is from the original human readable contentNo Payer Records FoundNo Payer Records FoundNo Payer Records FoundNo Payer Records FoundNo Payer Records FoundNo Payer Records FoundNo Payer Records FoundNo Payer Records FoundNo Payer Records Found Social History Type Social History Date Location Description History of tobacco use Current smoker 01-12-2017 [facility] ([id number]) Alcohol Comment Occasional 11-26-2010 - [facility] 11-26-2010 ([id number]) History of tobacco use Cigarette Smoker 01-12-2017 [facility] ([id number]) Cigarettes smoked 05-17-2020 - [facility] current (pack per day) 06-08-2020 (52473) - Reported Tobacco use and Never used 05-17-2020 - [facility] exposure 06-08-2020 (10182) Alcohol intake Current drinker of 05-17-2020 - [place] [facility] alcohol (finding) 06-08-2020 (54339) Tobacco Comment Approx. 3 cigarettes 03-10-2011 - [facility] daily-1 pack every week 03-10-2011 (94939) Tobacco smoking status Former smoker 05-17-2020 - [facility] NHIS 06-08-2020 (64326) Sex Assigned At Not on file [facility] (36994) Exposure to SARS-CoV-2 Not sure [facility] (event) (33707) History SDOH Financial 5 06-08-2020 - [facility] 06-08-2020 (42487) History SDOH Food Worry 1 06-08-2020 - [facility] 06-08-2020 (51201) History SDOH Transport 2 06-08-2020 - [facility] Med 06-08-2020 (73643) Exposure to SARS-CoV-2 Yes [facility] (event) (29697) The following information is from the original [...] Winn MD documented in this encounterKenia Mcfarland (Concrete Craftsman) - 05/17/2020 11:57 AM EDT Visit Date: May 17, 2020 Patient Name: Ms.Nichole Jeana Mcgregor Date of : 1980 MRN/E #: [id number] Chief Complaint Patient presents with: right shoulder [...] history is provided by the patient. No corn breeder was used. PAIN EVALUATION 05/17/2020 1153 Pain [...] Benign liver cyst 05/24/2010 CT scan at [facility] 11/2009 and 04/2010 showe 4 mm increase in size. No pain. No elevated LFTs on 03/11/2010. ? Calculus of kidney 05/17/[address] Nicolas: Hospitalized age 20, and again later -- no procedures so far ([facility], 1995 [facility]) ? Dysmenorrhea ? History of [...] go to the ED. Patient went to [place] ED and mentions 'nothing was done. They [...] note she presented to the ED in [place] in January 2020 for abdominal pain of [address] abdomen was essentially unremarkable including pancreas. Was found to have lipase of 193 on 02/15/2020. Amylase normal. Hepatic function panel. ? Has h/o cholecystectomy in 1998. PAST MEDICAL HISTORY Diagnosis Date ? Allergic rhinitis, cause unspecified 05/17/2008 Spring and summer ? Benign liver cyst 05/24/2010 CT scan at [facility] 11/2009 and 04/2010 showe 4 mm increase in size. No pain. No elevated LFTs on 03/11/2010. ? Calculus of kidney 05/17/[address] Nicolas: Hospitalized age 20, and again later -- no procedures so far ([facility], 1996 [facility]) ? Cancer (HCC) ? Diverticulosis [...] removed ? TOTAL ABDOM HYSTERECTOMY 08/31/06 Hysterectomy, [facility] H[facility]ORY Problem Relation Age of Onset [...] the ED yesterday - she went to [place] ED and was told that pancreas levels [...] for nausea. Advised to go to the [facility] ED if no improvement in symptoms. 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) 05/08/2020 12:13 PM Advance Directive(s) 05/25/2020 7:47 AM Advance Directive(s) 06/08/2020 9:30 AM Documents on File Type Date Recorded 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) 05/08/2020 12:13 PM Advance Directive(s) 05/25/2020 7:47 AM Advance Directive(s) 06/08/2020 9:30 AM Documents on File Type Date Recorded 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) 05/08/2020 12:13 PM [...] NEW PATIENT VISIT LEVEL 5 [address] [facility] [address] [facility] [place], [place] [phone] Phone: Fax: Status Reason Specialty Diagnoses / Referred By Referred To Procedures Contact Contact Authorized PCP Requested Orthopedics Diagnoses Acute shoulder pain, unspecified laterality Marcelino Mejia Referral Procedures CONSULT TO ORTHOPAEDICS NEW PATIENT VISIT LEVEL 5 [address] [place] [address] Status Reason Specialty Diagnoses / Referred By Referred To Procedures Contact Contact Pending Review Auto-Generated MR IMAGING Diagnoses Pancreatic cyst Mala Almendarez Mr Imaging Referral Procedures MRI ABDOMEN WO/W IVCON MRI,ABDOMEN,W&WO CONTRS [address] [address] Status Reason Specialty Diagnoses / Procedures Referred By C ryna Referred To Contact Closed Diagnoses Post-op pain Mala Almendarez [address] [address] Phone: Instructions Patient InstructionsKenia Mcfarland) - 05/17/2020 [...] BE BASED ON THE PRIMARY CLINICAL RECORDS. [facility] provides no warranty or guarantee of the accuracy or completeness of information in this document. UNRECOGNIZED CONTENT PROVIDED BELOW FOR UNRECOGNIZED SECTION Source Comments In the event this information is protected by the Federal Confidentiality of Alcohol and Drug Abuse Patient Records regulations: The Federal rules restrict any use of the information to criminally investigate or prosecute any alcohol or drug abuse patient.[facility] the event this information is protected by the Federal Confidentiality of Alcohol and Drug Abuse Patient Records regulations: The Federal rules restrict any use of the information to criminally investigate or prosecute any alcohol or drug abuse patient.[facility] HospitalIn the event this information is protected by the Federal Confidentiality of Alcohol and Drug Abuse Patient Records regulations: The Federal rules restrict any use of the information to criminally investigate or prosecute any alcohol or drug abuse patient.[facility] HospitalIn the event this information is protected by the Federal Confidentiality of Alcohol and Drug Abuse Patient Records regulations: The Federal rules restrict any use of the information to criminally investigate or prosecute any alcohol or drug abuse patient.[facility] HospitalIn the event this information is protected by the Federal Confidentiality of Alcohol and Drug Abuse Patient Records regulations: The Federal rules restrict any use of the information to criminally investigate or prosecute any alcohol or drug abuse patient.[facility] HospitalIn the event this information is protected by the Federal Confidentiality of Alcohol and Drug Abuse Patient Records regulations: The Federal rules restrict any use of the information to criminally investigate or prosecute any alcohol or drug abuse patient.[facility] HospitalIn the event this information is protected by the Federal Confidentiality of Alcohol and Drug Abuse Patient Records regulations: The Federal rules restrict any use of the information to criminally investigate or prosecute any alcohol or drug abuse patient.[facility] HospitalIn the event this information is protected by the Federal Confidentiality of Alcohol and Drug Abuse Patient Records regulations: The Federal rules restrict any use of the information to criminally investigate or prosecute any alcohol or drug abuse patient.[facility] HospitalIn the event this information is protected by the Federal Confidentiality of Alcohol and Drug Abuse Patient Records regulations: The Federal rules restrict any use of the information to criminally investigate or prosecute any alcohol or drug abuse patient.[facility] HospitalIn the event this information is protected [...] or prosecute any alcohol or drug abuse patient.[facility] HospitalIn the event this information is protected by the Federal Confidentiality of Alcohol and Drug Abuse Patient Records regulations: The Federal rules restrict any use of the information to criminally investigate or prosecute any alcohol or drug abuse patient.[facility] HospitalIn the event this information is protected by the Federal Confidentiality of Alcohol and Drug Abuse Patient Records regulations: The Federal rules restrict any use of the information to criminally investigate or prosecute any alcohol or drug abuse patient.[facility] HospitalIn the event this information is protected by the Federal Confidentiality of Alcohol and Drug Abuse Patient Records regulations: The Federal rules restrict any use of the information to criminally investigate or prosecute any alcohol or drug abuse patient.[facility] HospitalIn the event this information is protected by the Federal Confidentiality of Alcohol and Drug Abuse Patient Records regulations: The Federal rules restrict any use of the information to criminally investigate or prosecute any alcohol or drug abuse patient.[facility] HospitalIn the event this information is protected by the Federal Confidentiality of Alcohol and Drug Abuse Patient Records regulations: The Federal rules restrict any use of the information to criminally investigate or prosecute any alcohol or drug abuse patient.[facility] HospitalIn the event this information is protected by the Federal Confidentiality of Alcohol and Drug Abuse Patient Records regulations: The Federal rules restrict any use of the information to criminally investigate or prosecute any alcohol or drug abuse patient.[facility] HospitalIn the event this information is protected by the Federal Confidentiality of Alcohol and Drug Abuse Patient Records regulations: The Federal rules restrict any use of the information to criminally investigate or prosecute any alcohol or drug abuse patient.[facility] HospitalIn the event this information is protected by the Federal Confidentiality of Alcohol and Drug Abuse Patient Records regulations: The Federal rules restrict any use of the information to criminally investigate or prosecute any alcohol or drug abuse patient.[facility] HospitalIn the event this information is protected by the Federal Confidentiality of Alcohol and Drug Abuse Patient Records regulations: The Federal rules restrict any use of the information to criminally investigate or prosecute any alcohol or drug abuse patient.[facility] HospitalIn the event this information is protected by the Federal Confidentiality of Alcohol and Drug Abuse Patient Records regulations: The Federal rules restrict any use of the information to criminally investigate or prosecute any alcohol or drug abuse patient.[facility] HospitalIn the event this information is protected by the Federal Confidentiality of Alcohol and Drug Abuse Patient Records regulations: The Federal rules restrict any use of the information to criminally investigate or prosecute any alcohol or drug abuse patient.[facility] HospitalIn the event this information is protected by the Federal Confidentiality of Alcohol and Drug Abuse Patient Records regulations: The Federal rules restrict any use of the information to criminally investigate or prosecute any alcohol or drug abuse patient.[facility] UNRECOGNIZED CONTENT PROVIDED BELOW FOR UNRECOGNIZED [...] dyspepsia,gerd,dysphagia 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, 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 [place] ENDOSCOPY Procedures COLONOSCOP W/ OR W/O [facility] SPEC EGD W/O OR W/BRUSH/WASH COLONOSCOPY W/EGD [address] [place], [place] [address] Phone: [place], [place] [phone] Fax: Reason Onset Date Comments Patient [...] DATE CREATED AUTHOR AUTHOR'S ORGANIZATIO N 10/21/2019 [facility] DATE CREATED AUTHOR AUTHOR'S ORGANIZATIO N 04/06/2020 [facility] DATE CREATED AUTHOR AUTHOR'S ORGANIZATIO N 02/26/2020 [facility] ([place]) DATE CREATED AUTHOR AUTHOR'S ORGANIZATIO N 06/11/2020 [facility] DATE CREATED AUTHOR AUTHOR'S ORGANIZATIO N 06/21/2020 [facility] DATE CREATED AUTHOR AUTHOR'S ORGANIZATIO N 06/26/2020 [facility] UNRECOGNIZED CONTENT PROVIDED BELOW FOR UNRECOGNIZED [...] pcp would send Rx for phenergan to [facility]. Reports she's had nausea for [...] panel was not drawn, left message with [place] lab to contact patient for redraw Pierce [...] or do not improve. Taty Perea APRN, LEAD JANITOR documented in this encounter UNRECOGNIZED CONTENT PROVIDED [...]
--- OUTSIDE RECORDS SUMMARY | 2020-06-26 19:04 | XMS RPT_ITS | CCD ---
:1980 External Reference #:[id number] Author Organization [facility] Care Team Providers Name Role [...] Cephalexin Itching 10-20-2019 - [facility] ([id number]) Chlorhexidine Rash 10-29-2016 - [facility] (78049) CONTRAST MEDIA, Moderate Mello Pomeren e IODINE RELATED ([facility]) Repository (Qualifier Value) Ibuprofen GI Upset Low 06-18-2016 - [facility] (32154) Ibuprofen Moderate [facility] ([facility]) Repository (Qualifier Value) Iodine Shortness of Breath Low 05-17-2008 - [facility] (41132) Ketorolac Moderate [facility] ([facility]) Repository (Qualifier Value) Ketorolac Rash 05-25-2020 - [facility] (52112) metroNIDAZOLE Moderate [facility] ([facility]) Repository (Qualifier Value) Penicillins Rash Mod[facility]73814[facility] Penicillins Moderate [facility] ([facility]) Repository (Qualifier Value) predniSONE Other: See Comments Low 06-18-2016 [facility] (11162) Promethazine Moderate [facility] ([facility]) Repository (Qualifier Value) Salicylic Acid Other: See Comments Low 01-27-2011 - [facility] (61921) traMADol Rash 05-25-2020 - [facility] (69574) Medications Medication Name Sig Date Prescriber Location Albuterol albuterol HFA (VENTOLIN [facility] Provider [facility] (69967) HFA) 90 mcg/actuation inhaler Inhale 2 Puffs as instructed every 4 hours as needed. 0 Active Comment: Inhale 2 Puffs as instructed every 4 hours as needed. Bifidobacterium Bifidobacterium 04-26-2020 - [facility] Infantis Infantis (ALIGN) 4 mg 07-25-2020 [facility] (01821) cap Take 1 capsule by mouth once daily. 30 capsule 2 04/26/2020 07/25/2020 Active Comment: Take 1 capsule by mouth once daily. Clindamycin clindamycin (CLEOCIN) 06-15-2020 - Jonh (Res) [facility] 300 mg capsule 06-26-2020 [facility] (28796) Indications: Incisional infection Take 1 capsule by mouth four times daily for 5 days. 20 capsule 0 06/21/2020 06/26/2020 Active Comment: Take 1 capsule by mouth four times daily for 5 days. diazePAM diazePAM (VALIUM) 5 mg 06-05-2020 - [facility] tablet Indications: 06-07-2020 Mala [facility] (81944) Pancreatic cyst Take 1 tablet by mouth once daily for 2 days. 2 tablet 0 06/05/2020 06/07/2020 Active Comment: Take 1 tablet by mouth once daily for 2 days. Dicyclomine dicyclomine (BENTYL) 04-26-2020 - Johnny Mccall [facility] 10 mg capsule Take 1 05-24-2020 [facility] (56174) capsule by mouth before meals and at bedtime. Use as directed 90 capsule 1 04/26/2020 05/24/2020 Discontinued Comment: Take 1 capsule by mouth befo re meals and at bedtime. Use as directed diphenhydrAMINE diphenhydrAMINE (BENADRYL) 03-29-2019 [facility] Provide r [facility] 25 mg capsule Take 50 mg (44 195) by mouth every 6 hours as needed. 0 03/29/2019 Active Comment: Take 50 mg by mouth every 6 hours as needed. Docusate docusate sodium 06-21-2020 Jonh (Res) [facility] (COLACE) 100 mg capsule [place] (441 95) Take 1 capsule by mouth twice daily. 60 capsule 0 06/21/2020 Active Comment: Take 1 capsule by mouth twic e daily. Estradiol estradiol (ESTRACE) 2 mg 03-23-[address] [facility] (26072) tablet Take 2 mg by mouth once daily. 0 03/23/2020 Active Comment: Take 2 mg by mouth once kehinde y. HYDROmorphone HYDROmorphone 06-12-2020 - Mala Almendarez [facility] nghia (HYDROMORPHONE) 2 mg 06-19-2020 (96758) tablet Indications: Post-op pain Take 1 tablet by mouth every 3 hours as needed for Pain for up to 7 days. 40 tablet 0 06/12/2020 06/19/2020 Active Comment: Take 1 tablet by mouth every 3 hours as needed for Pain for up to 7 days. Hyoscyamine hyoscyamine (LEVSIN) 05-24-2020 Johnny Mccall [facility] 0.125 mg tablet Take 1 [facility] (4419 5) tablet by mouth every 6 hours as needed. 60 tablet 1 05/24/2020 Active Comment: Take 1 tablet by mouth every 6 hours as needed. iv contrast (will iv contrast (will be 06-05-2020 - Mala Almendarez [facility] be provided with provided with 06-06-2020 Mala Almendarez (03548) radiology test) radiology test) MRI ABDOMEN Inject, [...] metroNIDAZOLE metroNIDAZOLE (FLAGYL) 04-26-2020 - Johnny Mccall [facility] 500 mg tablet Take 1 05-03-2020 [facility] (50146) tablet by mouth three times daily for 7 days. 21 tablet 0 04/26/2020 05/03/2020 Active Comment: Take 1 tablet by mouth three times daily for 7 days. Naloxone naloxone 4 mg/actuation 06-21-2020 Jonh (Res) [facility] nasal spray (NARCAN) Use Chad (17 195) 1 spray in one nostril as [...] oxyCODONE IR 06-21-2020 - Maria Luisa Trejo [facility] (ROXICODONE) 5 mg 06-26-2020 (25092) immediate release tablet Indications: Benign liver cyst Take 1 tablet by mouth every 8 hours as needed for up to 5 days. 15 tablet 0 06/21/2020 06/26/2020 Active oxyCODONE IR 05-29-2020 - Sorin (Res) [facility] (ROXICODONE) 5 mg 06-03-2020 Alhalalmeh (74724) immediate release tablet Indications: Intractable nausea and [...] [facility] (PROTONIX) 40 mg 04-30-2020 [facility] (72264) tablet Take 1 tablet by mouth daily before breakfast. Take on empty stomach, 1/2 hr before meal. 30 tablet 3 04/30/2020 Active Comment: Take 1 tablet by mouth daily before breakfast. Take on empty stomach, 1/2 hr before meal. POLYETHYLENE GLYCOL polyethylene glycol 06-21-2020 - [place] (Res ) [place] 3350 3350 (MIRALAX) 17 07-22-2020 [facility] (44 195) gram/dose powder Dissolve 1 packet in 4-8 ounces of liquid and drink by mouth once daily as directed. 476 g 0 06/21/2020 07/22/2020 Active Comment: Dissolve 1 packet in 4-8 oun simi of liquid and drink by mouth once daily as directed. POLYETHYLENE GLYCOL peg 3350-Electrolytes 04-26-2020 - Johnny Mccall [place] 3350 / Potassium (GOLYTELY) 04-26-2020 [facility] (441 95) Chloride / Sodium [id number] -5.86 Johnny Mccall Bicarbonate / gram suspension [facility] Sodium Chloride / Indications: sodium sulfate Generalized [...] 1 mg cap Take 1 [facility] Provider [facility] (79888) mg by mouth daily at bedtime. 0 Active Comment: Take 1 mg by mouth daily at bedtime. pregabalin pregabalin (LYRICA) 06-25-2020 - Mala oliver [facility] 300 mg capsule 07-09-2020 Mala Almendarez (02725) Indications: Post-op pain Take 1 capsule by mouth twice daily for 14 days. 28 capsule 0 06/25/2020 07/09/2020 Active Comment: Take 1 capsule by mouth twic e daily for 14 days. Promethazine promethazine (PHENERGAN) 05-24-2020 [facility] 25 mg tablet Take 1 [facility] (28384) tablet by mouth every 8 hours as needed (for nausea). 10 tablet 0 05/24/2020 Active Comment: Take 1 tablet by mouth every 8 hours as needed (for nausea). QUEtiapine QUEtiapine (SEROQUEL) 02-23-2020 Marcelino Mejia [facility] 100 mg tablet Take 1 (54048) tablet by mouth once daily. 0 02/23/2020 Active Comment: Take 1 tablet by mouth once daily. Sertraline sertraline (ZOLOFT) 100 02-23-2020 Marcelino Ferreira [place] [facility] mg tablet Take 1 tablet (441 95) by mouth once daily. 0 02/23/2020 Active Comment: Take 1 tablet by mouth once daily. Sucralfate sucralfate (CARAFATE) 1 05-24-2020 Johnny Mccall Naya hu [facility] gram tablet Take 1 (88865) tablet by mouth four times daily. 30 tablet 0 05/24/2020 Active Comment: Take 1 tablet by mouth four times daily. Problems Active Problems Category Problem Name Status Date Location Abdominal pain Lower abdominal pain, Active 10-31-2019 - [facility]136[facility] Anxiety disorders Generalized anxiety Active 03-31-2016 - [facility] disorder (03519) Esophageal disorders Gastroesophageal reflux Active [facility] disease (05514) Headache; including Migraine without aura Active 05-17-2008 - [facility] migraine [facility] (40019) Mood disorders Reactive depression Active 03-31-2016 - [facility] (situational) (68748) Nausea and vomiting Nausea and vomiting Active 05-25-2020 - C [facility] (69130) Other disorders of Indigestion Active [facility] stomach and duodenum (25555) Other gastrointestinal Diarrhea Active [facility] disorders (60386) Other gastrointestinal Loose stool Active [facility] disorders (93708) Other gastrointestinal Abdominal bloating Active [facility] disorders (44669) Other gastrointestinal Dysphagia Active [facility] disorders (25913) Other gastrointestinal Personal history of Active [facility] disorders other diseases of the (60079 ) digestive system Other infections; Local infection of wound Active [facility] including parasitic (43623) Other liver diseases Liver cyst Active 05-24-2010 - [facility] (99362) Other nervous system Postoperative pain Active 06-19-2020 - C [facility] disorders (67829) Other nervous system Chronic pain syndrome Active 06-06-2020 - [facility] disorders (37842) Other non-traumatic joint Shoulder pain Active C [facility] disorders (07863) Other upper respiratory Allergic rhinitis Active 05-17-2008 - [facility] disease (57121) Pancreatic disorders (not Idiopathic acute Active [facility] diabetes) pancreatitis (73509) Paralysis Weakness of right leg Active 02-23-2017 - [facility] (58147) Substance-related Smoker Active 05-17-2008 - Mello Pomer willem disorders [facility] (56225) Unclassified Patient encounter status Active 05-17-2008 - [facility] (52080) Past or Other Problems Category Problem Name Status Date Location Allergic reactions Allergy status to Completed 10-31-2019 - [facility] Pome[place] narcotic agent status [facility] (18255) Blindness and vision Blurring of visual Completed 02-23-2017 - [facility] defects image (51689) Calculus of urinary Kidney stone Completed 05-17-2008 - [facility] tract (94459) Diabetes mellitus Impaired fasting Completed 05-17-2008 - [facility] without complication glycaemia (92603) Miscellaneous mental Adjustment insomnia Completed 03-31-2016 - [facility] health disorders (35255) Other connective tissue Muscle weakness of Completed 02-23-2017 - [facility] disease upper limb (72003) Other connective tissue Trochanteric bursitis Completed 06-18-20 - [facility] disease (58273) Other diseases of Hydroureter Completed 02-05-2017 - [facility] kidney and ureters (84277) Other diseases of Hydronephrosis Completed 02-05-2017 - [facility] kidney and ureters (64317) Other lower respiratory Multiple nodules of Completed 01-22-2020 - [facility] disease lung (22413) Other nervous system Numbness of lower limb Completed 02-23-2017 - [facility] disorders (88866) Other nervous system Numbness of upper limb Completed 02-23-2017 - [facility] disorders (79082) Other nervous system Numbness of face Completed 02-23-2017 - [facility] disorders (57763) Other non-traumatic Hip pain Completed 06-18-2016 - [facility] joint disorders (48872) Other screening for MRI of lumbar spine Completed 02-23-2017 - C [facility] suspected conditions abnormal (20345) (not mental disorders or infectious disease) Ovarian cyst Cyst of ovary Completed 07-15-2012 - [facility] (33423) Residual codes; Acquired absence of Completed 10-31-2019 - [facility] unclassified both cervix and uterus [facility] (45550) Residual codes; Acquired absence of Completed 10-31-2019 - [facility] unclassified other specified parts [facility] of digestive tract (96712) Residual codes; FH: Diabetes mellitus Completed 05-17-2008 - [facility] unclassified (97326) Spondylosis; Low back pain Completed 06-18-2016 - [facility] intervertebral disc (01802) disorders; other back problems Results Result Name Value Range Unit Interpretation Flag Date Location obsolete on 2020-06 OBSOLETE Refill ([facility]) Normal 06-25-2020 [facility] SALLY MCGREGOR ([id number]) 1980 F Medical Date Time Provider Department Center 06/25/20 MALA ALMENDAREZ [facility] (02612) During your visit today, we recorded the [...] 06/25/20 progress on 2020-06 PROGRESS HNO ID: [id number] Normal 06-21-2020 Milka Dumont Author: Maria Luisa [facility] Service: Pain Management (72969) Author Type: Physician Type: Progress Notes Filed: [...] 0.125 mg tablet, Take 1 tablet by ncik th every 6 hours as needed., Disp: [...] Approx. 3 cigarettes daily-1 pack every w [place] Substance Use Topics - Alcohol use: Yes [...] and migraine headache. She was referred to [place] pain management but was unable to go [...] pain. Small quantity oxycodone prescription sent to [facility] Maria Luisa Trejo MD plan of care on PLAN OF CARE HNO ID: [id number] Normal 06-21-20 [facility] Author: Rhonda Holman (Pharmacist) Center (66114) Service: Pharmacy Author Type: Pharmacist Type: Plan [...] PHARMACIST June 21, 2020 11:55 AM Pager: [phone] 06/21/2020 11:55 AM Medication List START taking [...] Your Medications These medications were sent to [facility] [address] [place], [place] [id number] Hours: Thursday-Thursday, 8am-6:30pm ? clindamycin 300 mg capsule ? docusate sodium 100 mg capsule ? naloxone 4 mg/actuation nasal spray ? oxyCODONE IR 5 mg immediate release tablet ? polyethylene glycol 3350 17 gram/dose powder nursing prog on NURSING HNO ID: [id number] Normal 06-21-2020 [place] [facility] Author: Silvia Naranjo) VIN Gomez General Service: ? Medical Author Type: Registered Nurse Center Type: Nursing Progress Note ([id number]) Filed: 06/20/2020 11:32 PM Note Text: Nursing Progress Note Patient Name: Sally Mcgregor Patient Location: [id number] Pt has been eating better and was told by the doctor that wh en her intake improved the fluids could be discontinued. Pt does not want fluids to continue so RN stopped fluids on pt's request. Doctor note i ndicated what the pt said. This note was completed by: Silvia Gomez RN progress on 2020-06 PROGRESS HNO ID: [id number] Normal 06-20-2020 [place] Author: Jonh Urrutia DO General Service: General Surgery Medical Author Type: Resident Center Type: Progress Notes ([id number]) Filed: 06/20/2020 8:38 AM Note Text: Attestation signed by Mala Almendarez at 06/20/2020 2:18 PM I saw and evaluated the patient. Discussed with the reside nt and agree with resident's findings and plan as documented in the resident's note. [facility] Progress Note SERVICE DATE: 06/20/2020 [facility] Service Pager: For questions or concerns Mon-Fri 6a-5p please page [phone]. After 5pm and on Weekends and Holidays, please page [phone]. SUBJECTIVE: Doing better this morning. Says pain [...] - enteric contrast (radiology procedure) ORAL DIRECTED AR N - oxyCODONE IR 5-10 mg tab(s) [...] questions or concerns Mon-Fri 6a-5p please page [phone]. After 5pm and on Weekends and Holidays, please page [phone] if in ICU or [phone] if on RNF. plan of care on PLAN OF CARE HNO ID: [id number] Normal 06-20-20 20 [facility] Medical Author: Nancy Abebe [place] ([id number]) Service: General Surgery Author Type: Resident Type: [...] history physical on 2020-06-20 HISTORY HNO ID: [id number] Normal 06-20-2020 [place] [facility]YSICAL Author: Nancy Abebe [facility] [place] Service: General Surgery Medical Author Type: Resident Center Type: HAND ([id number]) Filed: 06/19/2020 11:38 PM Note Text: Attestation signed by Mala Almendarez at 06/20/2020 2:18 PM Attending Note I personally saw and examined the patient. I reviewed the resident's note. I agree with the resident's assessment and plan with the [facility] revisions and/or additions: CT scan reviewed. Will [...] get worse. She was se nt to [place] ED, where she was given IV Dilauded and transferred here to [facility]. Pt reports that she is urinating, passing flatus and BMs. No N/ V. No fevers or chills. Last PO was at 1300h. Pt has a h/o multiple abd surgeries. Reformed smoker x5 anai hs. FUNCTIONAL STATUS: Independent PAST MEDICAL HISTORY Diagnosis Date - Allergic rhinitis, cause unspecified 05/17/2008 Spring and summer - Benign liver cyst 05/24/2010 CT scan at [facility] 11/2009 and 04/2010 showe 4 mm increase in size . No pain. No elevated LFTs on 03/11/2010. - Calculus of kidney 05/17/[address] Nicolas: Hospitalized age 20, and again later -- no procedures so far ([facility], [facility], [place], 1995 [facility]) - Cancer (HCC) - Diverticulosis [...] Approx. 3 cigarettes daily-1 pack every w [place] Substance Use Topics - Alcohol use: Yes [...] oz (86.0kg) SpO2 100% LMP 08/10/2006 B NM 35.84 kg/(m2). O2 Therapy: Room Air DATA: [...] DATE OF EXAM: Jun 20 2020 11:59AM [facility] 0530 - CT ABD/PEL W IVCON / ([id number]) PROCEDURE REASON: Abd pain, unspecified Physician Interpretation [...] ed portions of the heart are unremarkable. Cloth Mender (topogram) images: No additional findings. IMPRESSION: 1. Postsurgical changes in the posterior right hepatic dome with residual 8.3 cm cystic cavity with trace likely postsurgical gas, but no peripheral enhancement to suggest acute inflammation. 2. Other hepatic cyst are unchanged. 3. No acute intra-abdominal or pelvic findings. Bottle Label Inspector: HERMINIO Transcribe Date/Time: Jun 20 2020 12:16P Dictated by : NILAM OVIEDO MD This examination was interpreted and the report reviewed and electronically signed by: NILAM OVIEDO MD on Jun 20 2020 12:28PM EST consult on CONSULT HNO ID: [id number] Normal 06-20-2020 [place] [facility] Author: [facility] Service: Pain Management ([id number]) Author Type: Physician Type: Consults Filed: 06/20/2020 [...] - enteric contrast (radiology procedure) ORAL DIRECTED AR N Kaushal (Res) DO Grupo - oxyCODONE [...] 1 gram tablet, [facility] four times daily., Disp: 30 tablet, Rfl: [...] Approx. 3 cigarettes daily-1 pack every w [place] Substance Use Topics - Alcohol use: Yes [...] and migraine headache. She was referred to [place] pain management but was unable to go [...] health on 03-07-07 [facility] HNO ID: [id number] Normal 020 [place] [facility] Author: Holly PickardRt) [facility] Service: Radiology ( 58620) Author Type: Staffing Operations Manager Type: Allied Health Filed: 06/20/2020 12:04 PM [...] unstable renal function, e.g. those with ac [place] kidney injury, the eGFR may not accurately reflect actual GFR. eGFR- Date Value Ref Range Status 06/19/2020 >60 Final 02/15/2020 >60 Final P.O.C.T. RESULTS: N/A June 20, 2020 TREATMENT: N/A and No Hydration needed. PERIPHERAL IV DATA: Inpatient - refer to [facility] documentation RADIOLOGY DEPARTMENT: CT; Exam(s) Completed: Abdomen/Pelvis SIGNATURE: RT Jada PATIENT NAME: Sally caldwell DATE: June 20, 2020 TIME: 11:59 AM comp metab 1999 pnl serpl on 2020-06-19 Albumin [Mass/Vol] 4.3 3.9-4.9 g/dL Normal 06-19-2020 [facility] (30311) Comment: Order Comment: Specimen Type : BLOOD SPECIMEN Performed By: #### [id number] # ###[facility] LABORATORYCLIA [id number] [facility] [place] [address] ALP [Catalytic activity/Vol] 110 34-123 U/L Normal 1 0-06-2020 [facility] (00 000) Comment: Order Comment: Specimen Type : BLOOD SPECIMEN Performed By: #### 48549-2 # ###[facility]ORYCLIA [id number] [facility] [place] [address] ALT With P-5'-P [Catalytic 16 7-38 U/L Normal [facility] Medical activity/Vol] [place] (79288) Comment: Order Comment: Specimen Type : BLOOD SPECIMEN Performed By: #### 42631-2 # ###[facility]ORYCLIA [id number] [facility] [place] [address] Anion gap [Moles/Vol] 13 9-18 mmol/L Normal 06-19-20 20 [facility] (23425) Comment: Order Comment: Specimen Type : BLOOD SPECIMEN Performed By: #### 45679-0 # ###[facility]ORYCLIA [id number] [facility] [place] [address] AST With P-5'-P [Catalytic 19 13-35 U/L Normal [facility] activity/Vol] [place] (27720) Comment: Order Comment: Specimen Type : BLOOD SPECIMEN Performed By: #### 04230-5 # ###[facility]ORATORYCLIA [id number] [place] [address] Bilirubin [Mass/Vol] 0.2 0.2-1.3 mg/dL Normal 0 [facility] (42013) Comment: Order Comment: Specimen Type : BLOOD SPECIMEN Performed By: #### 73202-6 # ###[facility]ORATORYCLIA [id number] [place] [address] Calcium [Mass/Vol] 9.1 8.5-10.2 mg/dL Normal 06-19-2020 [facility] (15583) Comment: Order Comment: Specimen Type : BLOOD SPECIMEN Performed By: #### 49746-8 # ###[facility]ORATORYCLIA [id number] [place] [place] [address] Chloride [Moles/Vol] 102 97-105 mmol/L Normal 0 [facility] (85519) Comment: Order Comment: Specimen Type : BLOOD SPECIMEN Performed By: #### 87379-1 # ###[facility] LABORATORYCLIA [id number] [facility] [place] [address] CO2 [Moles/Vol] 22 22-30 mmol/L Normal 06-19-2020 [facility] (89801) Comment: Order Comment: Specimen Type : BLOOD SPECIMEN Performed By: #### 82667-1 # ###[facility] LABORATORYCLIA [id number] [facility] [place] [address] Creatinine [Mass/Vol] 0.88 0.58-0.96 mg/dL Normal 06-19-20 20 [facility] (00 000) Comment: Order Comment: Specimen Type : BLOOD SPECIMEN Performed By: #### 32250-6 # ###[facility] LABORATORYCLIA [id number] [facility] [place] [address] GFR/1.73 sq M.predicted >60 mL/min/{1.73_m2} Normal 06-19-2020 [facility] MDRD (S/P/Bld) [[facility] rate/Area] (72357) Comment: Order Comment: Specimen Type : BLOOD SPECIMEN Result Comment: >60 eGFR (Estimated GFR) Units o f measure: mL/min/1.73 meters squared eGFR is derived from the ree xpressed MDRD Study equation using the following parameters: serum creatinine, age, gender and race. The creatinine assay has been calibrated to be traceable to IDUT. An eGFR <60 mL/min/1.73m2 for >3 mo nths is consistent with chronic kidney disease. Refer to KDOQI guidelines for clinical interpretation. In patients with unstable renal function, e.g. those with acute k idney injury, the eGFR may n ot accurately reflect actual GFR. Performed By: #### 87524-8 # ###[facility] LABORATORYCLIA [id number] [facility] [place] [address] Glucose [Mass/Vol] 100 74-99 mg/dL High 06-19-2020 [facility] (17378) Comment: Order Comment: Specimen Type : BLOOD SPECIMEN Result Comment: The [place] Diabetes Association (ADA) provides guidance for cutoff [...] for diagnosis of diabetes. Reference: Standards of [facility] Care in Diabetes 2016, [place] Diabetes Association. Diabetes Care. 2016.39(Suppl 1). Performed By: #### 42253-3 # ###[facility] [place] LABORATORYCLIA [id number] [facility] [place] [address] Potassium [Moles/Vol] 3.8 3.7-5.1 mmol/L Normal 06-19-20 20 [facility] (00 000) Comment: Order Comment: Specimen Type : BLOOD SPECIMEN Performed By: #### 73094-5 # ###[facility] LABORATORYCLIA [id number] [facility] [place] [place] [address] Protein [Mass/Vol] 7.7 6.3-8.0 g/dL Normal 06-19-2020 [facility] (93885) Comment: Order Comment: Specimen Type : BLOOD SPECIMEN Performed By: #### 94456-5 # ###[facility] [facility] [place] LABORATORYCLIA [id number] [facility] [place] [place] [address] Sodium [Moles/Vol] 137 136-144 mmol/L Normal 06-19-2020 [facility] (82150) Comment: Order Comment: Specimen Type : BLOOD SPECIMEN Performed By: #### 85722-5 # ###[facility] [place] LABORATORYCLIA [id number] [facility] [place] [place] [address] Urea nitrogen [Mass/Vol] 14 7-21 mg/dL Normal 06-19 [facility] (28851) Comment: Order Comment: Specimen Type : BLOOD SPECIMEN Performed By: #### 35463-3 # ###[facility]ORATORYCLIA [id number] [facility] [place] [address] cbc w auto diff bld on 2020-06-19 Basophils (Bld) [#/Vol] 0.08 <0.11 k/uL Normal 2019 [facility] (00 000) Comment: Order Comment: Specimen Type : BLOOD SPECIMEN Performed By: #### 21825-1 # ###[facility]ATORYCLIA [id number] [facility] [place] [place] [address] Basophils/100 WBC (Bld) 0.7 % Normal 2019 [facility] (21952) Comment: Order Comment: Specimen Type : BLOOD SPECIMEN Performed By: #### 96037-2 # ###[facility]ORATORYCLIA [id number] [facility] [place] [address] Differential cell count method Auto Normal 06-19-2020 [facility] (Bld[facility] (00 000) Comment: Order Comment: Specimen Type : BLOOD SPECIMEN Performed By: #### 96583-3 # ###[facility]ORATORYCLIA [id number] [facility] [place] [address] Eosinophils (Bld) [#/Vol] 0.71 <0.46 k/uL High [facility] (00 000) Comment: Order Comment: Specimen Type : BLOOD SPECIMEN Performed By: #### 13989-0 # ###[facility]ORATORYCLIA [id number] [facility] [place] [address] Eosinophils/100 WBC (Bld) 6.0 % Normal [facility] (33140) Comment: Order Comment: Specimen Type : BLOOD SPECIMEN Performed By: #### 27959-4 # ###[facility]ORATORYCLIA [id number] [facility] [place] [address] Erythrocyte distribution 13.3 11.5-15.0 % Normal 06-19 [facility] (RBC) [Ratio] Center (71182) Comment: Order Comment: Specimen Type : BLOOD SPECIMEN Performed By: #### 11294-3 # ###[facility]ORATORYCLIA [id number] [facility] [place] [address] Hematocrit (Bld) [Volume 37.8 36.0-46.0 % Normal 06-19 [facility]] Center (00 000) Comment: Order Comment: Specimen Type : BLOOD SPECIMEN Performed By: #### 46147-4 # ###[facility] [place] LABORATORYCLIA [id number] [facility] [place] [place] [address] Hemoglobin (Bld) 12.1 11.5-15.5 g/dL Normal 06-19-2020 [facility] [Mass/Vol] [place] (0 0000) Comment: Order Comment: Specimen Type : BLOOD SPECIMEN Performed By: #### 15634-1 # ###[facility] LABORATORYCLIA [id number] [facility] [place] [address] IMMATURE GRAN % 1.5 % Normal 06-19-2020 [facility] (84463) Comment: Order Comment: Specimen Type : BLOOD SPECIMEN Performed By: #### 01588-9 # ###[facility] LABORATORYCLIA [id number] [facility] [place] [address] IMMATURE GRAN ABS 0.18 <0.10 k/uL High 06-19-2020 [facility] (59226) Comment: Order Comment: Specimen Type : BLOOD SPECIMEN Result Comment: Differential confirmed by visual scan of peripheral blood smear slide Performed By: #### 82583-8 # ###[facility] [place] LABORATORYCLIA [id number] [facility] [place] [address] Lymphocytes (Bld) [#/Vol] 4.79 1.00-4.00 k/uL High [facility] (00 000) Comment: Order Comment: Specimen Type : BLOOD SPECIMEN Performed By: #### 35881-5 # ###[facility]ORATORYCLIA [id number] [facility] [place] [address] Lymphocytes/100 WBC (Bld) 40.6 % Normal [facility] (72819) Comment: Order Comment: Specimen Type : BLOOD SPECIMEN Performed By: #### 89259-4 # ###[facility]ORATORYCLIA [id number] [facility] [place] [address] MCH (RBC) [Entitic mass] 28.6 26.0-34.0 pg Normal 06-19 [facility] () Comment: Order Comment: Specimen Type : BLOOD SPECIMEN Performed By: #### 40909-0 # ###[facility]ORATORYCLIA [id number] [facility] [place] [address] MCHC (RBC) [Mass/Vol] 32.0 30.5-36.0 g/dL Normal 06-19-20 [facility] () Comment: Order Comment: Specimen Type : BLOOD SPECIMEN Performed By: #### 41261-0 # ###[facility]ORATORYCLIA [id number] [facility] [place] [place] [address] MCV (RBC) [Entitic vol] 89.4 80.0-100.0 fL Normal 06-19 [facility] () Comment: Order Comment: Specimen Type : BLOOD SPECIMEN Performed By: #### 58132-8 # ###[facility]ORATORYCLIA [id number] [facility] [place] [address] Monocytes (Bld) [#/Vol] 0.53 <0.87 k/uL Normal 2019 [facility] () Comment: Order Comment: Specimen Type : BLOOD SPECIMEN Performed By: #### 14900-5 # ###[facility]ORATORYCLIA [id number] [facility] [place] [place] [address] Monocytes/100 WBC (Bld) 4.5 % Normal 2019 [facility] (18568) Comment: Order Comment: Specimen Type : BLOOD SPECIMEN Performed By: #### 74151-6 # ###[facility]ORATORYCLIA [id number] [facility] [place] [address] Neutrophils (Bld) [#/Vol] 5.51 1.45-7.50 k/uL Normal [facility] () Comment: Order Comment: Specimen Type : BLOOD SPECIMEN Performed By: #### 48165-4 # ###[facility]ATORYCLIA [id number] [facility] [place] [place] [address] Neutrophils/100 WBC (Bld) 46.7 % Normal [facility] (77765) Comment: Order Comment: Specimen Type : BLOOD SPECIMEN Performed By: #### 38638-7 # ###[facility]ORATORYCLIA [id number] [facility] [place] [address] Nucleated RBC (Bld) <0.01 <0.01 10*3/uL Normal 06-19-2020 [facility] [#/Vol] [place] (00 000) Comment: Order Comment: Specimen Type : BLOOD SPECIMEN Performed By: #### 53524-1 # ###[facility]ORATORYCLIA [id number] [facility] [place] [address] Nucleated RBC/100 WBC 0.0 0.0 /100 WBC Normal 06-19-20 [facility] (Bld) [Ratio] [place] ([address]) Comment: Order Comment: Specimen Type : BLOOD SPECIMEN Performed By: #### 83068-8 # ###[facility]ORATORYCLIA [id number] [facility] [place] [address] Platelet mean volume (Bld) 10.4 9.0-12.7 fL Normal [facility] [Entitic vol] [place] ([address]) Comment: Order Comment: Specimen Type : BLOOD SPECIMEN Performed By: #### 92433-0 # ###[facility]ATORYCLIA [id number] [facility] [place] [address] Platelets (Bld) [#/Vol] 324 150-400 k/uL Normal 2019 [facility] (00 000) Comment: Order Comment: Specimen Type : BLOOD SPECIMEN Performed By: #### 28016-0 # ###[facility]ORATORYCLIA [id number] [facility] [place] [address] RBC (Bld) [#/Vol] 4.23 3.90-5.20 m/uL Normal 06-19-2020 [facility] (21242) Comment: Order Comment: Specimen Type : BLOOD SPECIMEN Performed By: #### 12058-4 # ###[facility]ORATORYCLIA [id number] [facility] [place] [address] RED CELL MORPH Normal Normal 06-19-2020 [facility] (34543) Comment: Order Comment: Specimen Type : BLOOD SPECIMEN Performed By: #### 11348-7 # ###[facility] LABORATORYCLIA [id number] [facility] [address] WBC (Bld) [#/Vol] 11.80 3.70-11.00 k/uL High 06-19-2020 [facility] (26319) Comment: Order Comment: Specimen Type : BLOOD SPECIMEN Performed By: #### 27908-4 # ###[facility] LABORATORYCLIA [id number] [facility] [address] cnpn on 2020-06-15 CNPN Telephone (AGGENS6) Normal 06-15-2020 [facility] SALLY MCGREGOR ([id number]) 1980 F Medical Date Time Provider Department Center 06/15/20 TATY EPREA (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 She refuses to go to [facility] to be seen because they treat her poorly. I will send an RX to her pharmacy for an antibiotic. She is to notify the office if her symptoms worsen or do not improve. Taty Perea APRN, [employer] Allergies As of Date: 06/15/2020 Noted Allergy [...] 06/15/20 progress on 2020-05 PROGRESS HNO ID: [id number] Normal 06-13-2020 [place] Author: Kimmie Jennings General Service: General Surgery Medical Author Type: Resident Center Type: Progress Notes (65364) Filed: 06/13/2020 6:55 AM Note Text: Attestation signed by Mala Almendarez at 06/18/2020 1:28 PM I saw and evaluated the patient. Discussed with the reside nt and agree with resident's findings and plan as documented in the resident's note. [facility] Progress Note SERVICE DATE: 06/13/2020 [facility] Service Pager: For questions or concerns Mon-Fri 6a-5p please page [phone]. After 5pm and on Weekends and Holidays, please page [phone]. SUBJECTIVE: Patient stayed overnight due to uncontrolled [...] 0659 06/13/20 07 - 06/14/20 0659 Shift 1322-2768 6572-6488 2710-1477 24 Hour Total 5503-8125 6328-4290 6055-1294 24 Hour Total INTAKE PO 240 200 [...] questions or concerns Mon-Thu 6a-5p please page [phone]. After 5pm and on Weekends and Holidays, please page [phone] if in ICU or [phone] if on RNF. PROGRESS HNO ID: [id number] Normal 06-13-2020 [place] Author: Mer (Rn) VIN Bejarano General Service: [...] plan of care on PLAN HNO ID: [id number] Normal 06-13-2020 [place] [facility] Author: Aureliano Dietz DO General CARE [...] Phosphate [Mass/Vol] 3.9 2.7-4.8 mg/dL Normal 0 [facility] (25540) Comment: Performed By: #### URIN2 ### # [facility] [address] [place] [address] mdrd gfr on 2020-05 GFR/1.73 sq M >60 >60mL/min/1.73m2 mL/min/{1.73_m2} Normal [facility] non-blacks MDRD (000 00) (S/P/Bld) [Vol rate/Area] Comment: Result Comment: If the patie nt is , multiply the result by 1.210. Performed By: #### GFR #### [address] [address] magnesium blood on 2020-06-13 Magnesium [Mass/Vol] 2.1 1.7-2.3 mg/dL Normal 0 [facility] (05689) Comment: Performed By: #### URIN2 ### # [address] [address] hemogram on 2020-05 Erythrocyte distribution 13.4 11.7-14.4 % Normal 06-13 [facility] width (RBC) [Ratio] System (73774) Comment: Performed By: #### URIN2 ### # [facility] [address] [place], [place] [address] Hematocrit (Bld) [Volume 37.9 34.1-44.9 % Normal 06-13 [facility] fraction] System (00 000) Comment: Performed By: #### URIN2 ### # [address] [address] Hemoglobin (Bld) 12.1 11.2-15.7 g/dL Normal 06-13-2020 [facility] [Mass/Vol] System (0 0000) Comment: Performed By: #### URIN2 ### # [facility] [address] [place], [place] [address] MCH (RBC) [Entitic mass] 28.9 25.6-32.2 pg Normal 06-13 [facility] (00 000) Comment: Performed By: #### URIN2 ### # [facility] [address] [place], [place] [address] MCHC (RBC) [Mass/Vol] 31.9 31.6-34.8 % Normal 06-13-20 20 [facility] (88773) Comment: Performed By: #### URIN2 ### # [facility] [address] [place], [place] [address] MCV (RBC) [Entitic vol] 90.7 79.4-94.8 fl Normal 2019 [facility] (00 000) Comment: Performed By: #### URIN2 ### # [facility] [address] [place], [place] [address] Platelet mean volume (Bld) 10.9 9.4-12.[address] [facility] [Entitic vol] System (05006) Comment: Performed By: #### URIN2 ### # [facility] [address] [place], [place] [address] Platelets (Bld) [#/Vol] 236 182-369 thou/cmm Normal 2019 [facility] (00 000) Comment: Performed By: #### URIN2 ### # [facility] [address] [place], [place] [address] RBC (Bld) [#/Vol] 4.18 3.93-5.22 mil/cmm Normal 06-13-2020 [facility] (00 000) Comment: Performed By: #### URIN2 ### # [facility] [address] [place], [place] [address] RDW SD 44.2 36.4-46.3 fl Normal 06-13-2020 [facility] (28381) Comment: Performed By: #### URIN2 ### # [facility] [address] [place], [place] [address] WBC (Bld) [#/Vol] 7.45 3.98-10.04 thou/cmm Normal 06-13-2020 [facility] (00 000) Comment: Performed By: #### URIN2 ### # [facility] [address] [place] [address] comprehensive metabolic panel on 2020-06-13 Albumin [Mass/Vol] 4.1 3.9-4.9 g/dL Normal 06-13-2020 [facility] (14774) Comment: Performed By: #### URIN2 ### # [facility] [address] [place] [address] ALP [Catalytic activity/Vol] 98 34-123 U/L Normal 0 06-13-2020 [facility] (00 000) Comment: Performed By: #### URIN2 ### # [facility] [address] [place] [address] ALT [Catalytic activity/Vol] 73 7-38 U/L High 0 06-13-2020 [facility] (41695) Comment: Performed By: #### URIN2 ### # [facility] [address] [place] [address] Anion gap [Moles/Vol] 10 9-18 mmol/L Normal 06-13-20 20 [facility] (06794) Comment: Performed By: #### URIN2 ### # [facility] [address] [place] [address] AST [Catalytic activity/Vol] 69 13-35 U/L High 0 06-13-2020 [facility] (88697) Comment: Performed By: #### URIN2 ### # [facility] [address] [place] [id number] Bilirubin [Mass/Vol] 0.6 0.2-1.3 mg/dL Normal 0 [facility] (85330) Comment: Performed By: #### URIN2 ### # [facility] [address] [place] [address] Calcium [Mass/Vol] 9.1 8.5-10.2 mg/dL Normal 06-13-2020 [facility] (76068) Comment: Performed By: #### URIN2 ### # [facility] [address] [place], [place] [address] Chloride [Moles/Vol] 101 97-105 mmol/L Normal 0 [facility] (54724) Comment: Performed By: #### URIN2 ### # [facility] [address] [place], [place] [address] CO2 Blood 27 22-30 mmol/L Normal 06-13-2020 [facility] (96894) Comment: Performed By: #### URIN2 ### # [facility] [address] [place], [place] [address] Creatinine [Mass/Vol] 0.87 0.58-0.96 mg/dL Normal 06-13-20 [facility] (00 000) Comment: Performed By: #### URIN2 ### # [facility] [address] [place], [place] [address] Glucose [Mass/Vol] 94 74-99 mg/dL Normal 06-13-2020 [facility] (78279) Comment: Result Comment: The [place] Diabetes Association (ADA) provides guidance for cutoff [...] Standards of Medical Care in Diabetes 2016; [place] Diabetes Association. Diabetes Care. 2016;39(Suppl 1). Performed By: #### URIN2 ### # [facility] [address] [place], [place] [address] Potassium [Moles/Vol] 3.8 3.7-5.1 mmol/L Normal 06-13-20 [facility] (00 000) Comment: Performed By: #### URIN2 ### # [facility] [address] [place], [place] [address] Protein [Mass/Vol] 7.3 6.3-8.0 g/dL Normal 06-13-2020 [facility] (17447) Comment: Performed By: #### URIN2 ### # [facility] [address] [place], [place] [address] Sodium [Moles/Vol] 138 136-144 mmol/L Normal 06-13-2020 [facility] (45227) Comment: Performed By: #### URIN2 ### # [facility] [address] [place], [place] [address] Urea nitrogen [Mass/Vol] 7 7-21 mg/dL Normal 06-13 [facility] (85016) Comment: Performed By: #### URIN2 ### # [facility] [address] [place], [place] [address] case managem on CASE MANAGEM HNO ID: [id number] Normal 06-13-20 [facility] Author: Britni PickardRn) VIN Grimaldo [facility] Service: Care Management (26996) Author Type: Registered Nurse Type: Care Mgt [...] Name/Phone: Floor RN TRANSPORTATION ARRANGEMENTS: Transportation Arrangements: [employer] (through [employer]) [place] Transport: [phone] Trip #: [id number] Needs Prior to Discharge: Ready for Discharge Chart reviewed. Discharge held yesterday due to uncontrolled pain. Spoke with patient. Plan is for discharge today. Awaiting di awarfausto orders. Discharge disposition= Home with follow up care. SIGNATURE: Britni Grimaldo RN PATIENT NAME: Sally james DATE: June 13, 2020 TIME: 11:00 AM PAGER/CONTACT #: [phone] progress on 2020-05 PROGRESS HNO ID: [id number] Normal 06-12-2020 [place] Author: Nancy Abebe [facility] [place] Service: General Surgery Medical Author Type: Resident Center Type: Progress Notes (53335) Filed: 06/12/2020 7:57 AM Note Text: Attestation signed by Mala Almendarez at 06/12/2020 9:28 PM Attending Note I personally saw and examined the patient. I reviewed the resident's note. I agree with the resident's assessment and plan with the maureen strong revisions and/or additions: Still with severe pain. Will hold DC today and poss dc [facility] Signature: Mala Almendarez MD Date: 06/12/2020 Time: 9:28 PM [facility] Progress Note SERVICE DATE: 06/12/2020 [facility] Service Pager: For questions or concerns Mon-Fri 6a-5p please page [phone]. After 5pm and on Weekends and Holidays, please page [phone]. SUBJECTIVE: C/o significant pain that prevents her [...] 06/11/20699 - 06/12/2065806/12/20699 - 06/13/20 0659 Shift 1857-0114 2373-5758 6619-4086 24 Hour Total 0101-6044 1704-8873 6872-4379 24 Hour Total INTAKE PO 100 100 PO 100 100 IV 1900 1900 OR Crystalloid intake (mL) 1000 1000 Volume (mL) (lactated ringers infusion) 900 900 Shift Total 3997 693 5773 OUTPUT Urine 066 839 3547 Void (ml) 600 600 OR Urine Output 500 500 Urine Not Saved. 1 x 3 x 4 x Blood 50 50 Estimated Blood loss 50 50 Shift Total 497 073 6269 Weight (kg) 89.6 89.6 89.6 89.6 89.6 [...] care on PLAN OF CARE HNO ID: [id number] Normal 06-12-20 [facility] Author: Page Burgess (Associate Professor Of Education) [place] ([address]) Service: Pharmacy Author Type: Pharmacist Type: Plan [...] from Discharge Medication Li st. Page Burgess, Associate Professor Of Education June 12, 2020 10:36 AM Medication List [...] Your Medications These medications were sent to [facility] [address] [place] [address] Hours: Thursday-Thursday, 8am-6:30pm ? oxyCODONE IR 5 mg immediate release tablet phosphorous blood o n 2020-06-12 Phosphate [Mass/Vol] 3.4 2.7-4.8 mg/dL Normal 0 [facility] ([address]) Comment: Performed By: #### CBCD1 ### # [place] [address] magnesium blood on 2020-06-12 Magnesium [Mass/Vol] 1.5 1.7-2.3 mg/dL Low 0 [facility] ([address]) Comment: Performed By: #### CBCD1 ### # [place] [address] hemogram on 2020-05 Erythrocyte distribution 13.2 11.7-14.4 % Normal 06-12 [facility] width (RBC) [Ratio] System (17271) Comment: Performed By: #### CBCD1 ### # [place] [address] Hematocrit (Bld) [Volume 32.9 34.1-44.9 % Low 06-12 [facility] fraction] System (00 000) Comment: Performed By: #### CBCD1 ### # [place] [address] Hemoglobin (Bld) [Mass/Vol] 10.5 11.2-15.7 g/dL Low [facility] (00 000) Comment: Performed By: #### CBCD1 ### # [place] [address] MCH (RBC) [Entitic mass] 29.2 25.6-32.2 pg Normal 06-12 [facility] (00 000) Comment: Performed By: #### CBCD1 ### # [address], [place] [address] MCHC (RBC) [Mass/Vol] 31.9 31.6-34.8 % Normal 06-12-20 20 [facility] ([address]289) Comment: Performed By: #### CBCD1 ### # [facility] [address] [place], [place] [address] MCV (RBC) [Entitic vol] 91.4 79.4-94.8 fl Normal 2019 [facility] (00 000) Comment: Performed By: #### CBCD1 ### # [facility] [address] [place] [address] Platelet mean volume (Bld) 11.5 9.4-12.[address] [facility] [Entitic vol] System (31522) Comment: Performed By: #### CBCD1 ### # [facility] [address] [place], [place] [address] Platelets (Bld) [#/Vol] 182 182-369 thou/cmm Normal 2019 [facility] (00 000) Comment: Performed By: #### CBCD1 ### # [facility] [address] [place], [place] [address] RBC (Bld) [#/Vol] 3.60 3.93-5.22 mil/cmm Low 06-12-2020 [facility] (39199) Comment: Performed By: #### CBCD1 ### # [facility] [address] [place], [place] [address] RDW SD 44.5 36.4-46.3 fl Normal 06-12-2020 [facility] (38712) Comment: Performed By: #### CBCD1 ### # [facility] [address] [place], [place] [address] WBC (Bld) [#/Vol] 7.04 3.98-10.04 thou/cmm Normal 06-12-2020 [facility] (00 000) Comment: Performed By: #### CBCD1 ### # [facility] [address] [place], [place] [address] case managem on 202 CASE MANAGEM HNO ID: [id number] Normal 06-12-20 [facility] Author: Britni (Rn) [facility] Service: Care Management (17955) Author Type: Registered Nurse Type: Care Mgt [...] 12, 2020 TIME: 9:18 AM PAGER/CONTACT #: [phone] basic metabolic panel on 2020-06-12 Anion gap [Moles/Vol] 8 9-18 mmol/L Low 06-12-20 20 [facility] (15136) Comment: Performed By: #### CBCD1 ### # [facility] [address] [place], [place] [address] Calcium [Mass/Vol] 8.0 8.5-10.2 mg/dL Low 06-12-2020 [facility] ([address]80) Comment: Performed By: #### CBCD1 ### # [facility] [address] [place], [place] [address] Chloride [Moles/Vol] 104 97-105 mmol/L Normal 0 [facility] (31216) Comment: Performed By: #### CBCD1 ### # [facility] [address] [place], [place] [address] CO2 Blood 26 22-30 mmol/L Normal 06-12-2020 [facility] (59576) Comment: Performed By: #### CBCD1 ### # [facility] [address] [place], [place] [address] Creatinine [Mass/Vol] 0.87 0.58-0.96 mg/dL Normal 06-12-20 [facility] (00 000) Comment: Performed By: #### CBCD1 ### # [facility] [address] [place], [place] [address] Glucose [Mass/Vol] 83 74-99 mg/dL Normal 06-12-2020 [facility] ([address]34) Comment: Result Comment: The [place] Diabetes Association (ADA) provides guidance for cutoff [...] Standards of Medical Care in Diabetes 2016; [place] [employer] Association. Diabetes Care. 2016;39(Suppl 1). Performed By: #### CBCD1 ### # [facility] [address] [place], [place] [address] Potassium [Moles/Vol] 3.4 3.7-5.1 mmol/L Low 06-12-20 20 [facility] ([address]480) Comment: Performed By: #### CBCD1 ### # [facility] [address] [place], [place] [address] Sodium [Moles/Vol] 138 136-144 mmol/L Normal 06-12-2020 [facility] (66203) Comment: Performed By: #### CBCD1 ### # [facility] [address] [place], [place] [address] Urea nitrogen [Mass/Vol] 6 7-21 mg/dL Low 06-12 [facility] ([address]45) Comment: Performed By: #### CBCD1 ### # [facility] [address] [place], [place] [address] type and screen on 2020-06-11 ABO group Nom (Bld) O Normal 06-11-2020 [facility] (22193) Comment: Performed By: #### CBCD1 ### # [place] [address] Comment See Below Normal 06-11-2020 [facility] (11768) Comment: Result Comment: Screen &/or Xmatch expires in 3 days at 12 midnight. Redraw patient at that time. Performed By: #### CBCD1 ### # [place] [address] RH Type Positive Normal 06-11-2020 [facility] ([id number]) Comment: Performed By: #### CBCD1 ### # [place] [address] surgical tissue exam on 2020-06-11 Surgical Tissue Exam Test performed at [facility] Normal 06-11-2020 [facility] [address] [place] [address] ([id number]) NAME: SALLY MCGREGOR REQUESTING: MALA ALMENDAREZ MD [...] are not see n on the specimen. Door Core Assembler sections are submitted in formalin in 4 cassettes. LETICIA/chadd VILLASEÑOR M.D., PATHOLOGIST (Electronic signature on file) Signed out: 06/13/2020 16:48 PRINTED: 06/13/2020 Page 1 of 1 Comment: Performed By: #### URIN2 ### # [place] [address] progress on 2020-05 PROGRESS HNO ID: [id number] Normal 06-11-2020 [place] Author: Kimime Topetem General Service: General Surgery Medical Author Type: Resident Center Type: Progress Notes ([id number]) Filed: 06/11/2020 7:03 AM Note Text: Attestation [...] questions or concerns Mon-Fri 6a-5p please page [phone]. After 5pm and on Weekends and Holidays, please page [phone]. SUBJECTIVE: NAEON. Afebrile. Patient resting in bed [...] - 06/11/20 0606/11/20699 - 06/12/20 0659 Shift 7838-8307 7771-2222 3162-1395 24 Hour Total 7969-5141 2226-6372 0863-8505 24 Hour Total INTAKE PO 600 600 [...] questions or concerns Thu-Thu 6a-5p please page [phone]. After 5pm and on Weekends and Holidays, please page [phone] if in ICU or [phone] if on RNF. operative no on 202 OPERATIVE NO HNO ID: [id number] Normal 06-11-20 [facility] Author: Mala Eddy [facility] Service: General Surgery ([id number]) Author Type: Physician Type: Operative Report Filed: 06/11/2020 1:39 PM Note Text: [facility] - Operative Report SALLY MCGREGOR : 1980 AGE: 39. SEX: F PATIENT TYPE: I HOSP SVC: GENS LOCATION: [facility] ATTENDING PHYSICIAN: MALA ALMENDAREZ CSN NUMBER: [id number] DATE OF SURGERY/PROCEDURE: 06/11/2020 INCISION/PROCEDURE START TIME: 10:51 AM INCISION CLOSE/PROCEDURE END TIME: 11:47 AM PREOPERATIVE DIAGNOSIS: Symptomatic liver cyst. POSTOPERATIVE DIAGNOSIS: Symptomatic liver cyst. SURGEON: Mala Almendarez MD SUPERVISOR TAN ROOM: None. SURGERY/PROCEDURE: Laparoscopic partial right hepatic lobect [...] CLASS: 2, clean, contaminated. Mala Almendarez MD NSA:[id number] /[id number] nursing prog on NURSING PROG HNO ID: [id number] Normal 06-11-20 20 [facility] Author: Garo PickardRnJoao Jackson RN [facility] Service: ? ([id number]) Author Type: Registered Nurse Type: Nursing Progress Note Filed: 06/11/2020 6:25 PM Note Text: Nursing Progress Note Patient Name: Sally Mcgregor Patient Location: [place] [id number]- Patient refusing IV fluids, states we can restart them when she goes to bed. Informed surgery team. This note was completed by: Garo Jackson RN hemogram on 2020-05 Erythrocyte distribution 13.0 11.7-14.4 % Normal 06-11 [facility] width (RBC) [Ratio] System (22049) Comment: Performed By: #### CBCD1 ### # [facility] [address] [place] [id number] Hematocrit (Bld) [Volume 35.0 34.1-44.9 % Normal 06-11 [facility] fraction] System (00 000) Comment: Performed By: #### CBCD1 ### # [facility] [address] [place], [place] [address] Hemoglobin (Bld) 11.4 11.2-15.7 g/dL Normal 06-11-2020 [facility] [Mass/Vol] System (0 0000) Comment: Performed By: #### CBCD1 ### # [facility] [address] [place], [place] [address] MCH (RBC) [Entitic mass] 29.2 25.6-32.2 pg Normal 06-11 [facility] (00 000) Comment: Performed By: #### CBCD1 ### # [facility] [address] [place], [place] [address] MCHC (RBC) [Mass/Vol] 32.6 31.6-34.8 % Normal 06-11-20 20 [facility] (59432) Comment: Performed By: #### CBCD1 ### # [facility] [address] [place], [place] [address] MCV (RBC) [Entitic vol] 89.5 79.4-94.8 fl Normal 2019 [facility] (00 000) Comment: Performed By: #### CBCD1 ### # [facility] [address] [place], [place] [address] Platelet mean volume (Bld) 11.1 9.4-12.[address] [facility] [Entitic vol] System (60592) Comment: Performed By: #### CBCD1 ### # [facility] [address] [place], [place] [address] Platelets (Bld) [#/Vol] 229 182-369 thou/cmm Normal 2019 [facility] (00 000) Comment: Performed By: #### CBCD1 ### # [facility] [address] [place], [place] [address] RBC (Bld) [#/Vol] 3.91 3.93-5.22 mil/cmm Low 06-11-2020 [employer] (18235) Comment: Performed By: #### CBCD1 ### # [facility] [address] [place], [place] [address] RDW SD 42.5 36.4-46.3 fl Normal 06-11-2020 [facility] (08654) Comment: Performed By: #### CBCD1 ### # [facility] [address] [place], [place] [address] WBC (Bld) [#/Vol] 6.54 3.98-10.04 thou/cmm Normal 06-11-2020 [facility] (00 000) Comment: Performed By: #### CBCD1 ### # [facility] [address] [place], [place] [address] case managem on CASE MANAGEM HNO ID: [id number] Normal 06-11-20 [facility] Author: Britni PickardRn) VIN Grimaldo [facility] Service: Care Management ([id number]) Author Type: Registered Nurse Type: Care Mgt [...] 11, 2020 TIME: 9:10 AM PAGER/CONTACT #: [phone] anes preop on 06-11 ANES PREOP HNO ID: [id number] Normal 06-11-2020 [facility] Author: [facility] Service: Anesthesiology ([id number]) Author Type: Physician Type: Anesthesia PreOp Filed: [...] Benign liver cyst 05/24/2010 CT scan at [facility] 11/2009 and 04/2010 showe 4 mm increase in size . No pain. No elevated LFTs on 03/11/2010. - Calculus of kidney 05/17/[address] Nicolas: Hospitalized age 20, and again later -- no procedures so far ([facility], [facility], 1995 [facility]) - Cancer (HCC) - Diverticulosis [...] Approx. 3 cigarettes daily-1 pack every w [place] Substance Use Topics - Alcohol use: Yes [...] INTRAVENOUS q 3 H PRN Nigel (Res) [place] 1 mg at 06/11/20 0536 - [MAR Hold due to Transfer] NaCl 0.9% iv infusion 125 mL/hr INTRAVENOUS CONTINUOUS Nigel (Res) [place] 125 mL/hr at 06/10/20 2248 1 25 [...] June 11, 2020 TIME: 9:49 AM CSN: [id number] anes post on 06-11 ANES POST HNO ID: [id number] Normal 06-11-2020 [facility] Author: Edwin Sesay [place] ([id number]) Service: Anesthesiology Author Type: Physician Type: Anesthesia [...] #: progress on 2020-05 PROGRESS HNO ID: [id number] Normal 06-10-2020 [facility] Author: Mer PickardRnJoao Bejarano RN [place] ([id number]) Service: Nursing Author Type: Registered Nurse Type: [...] resident Kimmie was notified. PROGRESS HNO ID: [id number] Normal 06-10-2020 [facility] Author: Kimmie Jennings [place] ([id number]) Service: General Surgery Author Type: Resident Type: [...] questions or concerns Mon-Fri 6a-5p please page [phone]. After 5pm and on Weekends and Holidays, please page [phone]. SUBJECTIVE: NAEON. Afebrile. Patient resting in bed [...] 0659 06/10/20 0700 - 06/11/20 0659 Shift 5557-3472 4483-4648 7275-6835 24 Hour Total 9291-2467 2420-8614 1085-1266 24 Hour Total INTAKE PO 818 280 8853 PO 367 261 7419 Shift Total 400 559 8532 OUTPUT Urine Urine Not Saved. 2 x [...] questions or concerns Thu-Thu 6a-5p please page [phone]. After 5pm and on Weekends and Holidays, please page [phone] if in ICU or [phone] if on RNF. PROGRESS HNO ID: [id number] Normal 06-10-2020 [facility] Medical Author: Mer PickardRnJoao Bejarano RN [place] ([id number]) Service: Nursing Author Type: Registered Nurse Type: [...] Phosphate [Mass/Vol] 4.2 2.7-4.8 mg/dL Normal 0 [facility] (43911) Comment: Performed By: #### CBCD1 ### # [address] [address] magnesium blood on 2020-06-10 Magnesium [Mass/Vol] 1.8 1.7-2.3 mg/dL Normal 0 [facility] (79834) Comment: Performed By: #### CBCD1 ### # [address] [address] coronavirus 2019 on 2020-06-10 COVID 19 Result APPOINTMENT SCHEDULER Negative CORNEG Normal 06-10-2020 [facility] (39151) Comment: Result Comment: Negative for COVID19 (SARS CoV2) by PCR. This test was developed and its performance characteristics determined by [facility]'s Johnnie Abreu Pathology and Laboratory Medicine [place]. This test has bee n authorized by [...] issued on November 12, 2019. Performing Laboratory: [facility] [address] [place] [address] Performed By: #### CBCD1 ### # [address] [address] basic metabolic panel on 2020-06-10 Anion gap [Moles/Vol] 10 9-18 mmol/L Normal 06-10-20 20 [facility] (16082) Comment: Performed By: #### CBCD1 ### # [address] [address] Calcium [Mass/Vol] 9.2 8.5-10.2 mg/dL Normal 06-10-2020 [facility] (16232) Comment: Performed By: #### CBCD1 ### # [facility] [address] [place], [place] [address] Chloride [Moles/Vol] 102 97-105 mmol/L Normal 0 [facility] (59282) Comment: Performed By: #### CBCD1 ### # [facility] [address] [place], [place] [address] CO2 Blood 27 22-30 mmol/L Normal 06-10-2020 [facility] (31769) Comment: Performed By: #### CBCD1 ### # [facility] [address] [place], [place] [address] Creatinine [Mass/Vol] 0.90 0.58-0.96 mg/dL Normal 06-10-20 20 [facility] (00 000) Comment: Performed By: #### CBCD1 ### # [facility] [address] [place], [place] [address] Glucose [Mass/Vol] 105 74-99 mg/dL High 06-10-2020 [facility] (73800) Comment: Result Comment: The [place] Diabetes Association (ADA) provides guidance for cutoff [...] Standards of Medical Care in Diabetes 2016; [place] Diabetes Association. Diabetes Care. 2016;39(Suppl 1). Performed By: #### CBCD1 ### # [facility] [address] [place], [place] [address] Potassium [Moles/Vol] 3.7 3.7-5.1 mmol/L Normal 06-10-20 [facility] (00 000) Comment: Performed By: #### CBCD1 ### # [facility] [address] [place], [place] [address] Sodium [Moles/Vol] 139 136-144 mmol/L Normal 06-10-2020 [facility] (77769) Comment: Performed By: #### CBCD1 ### # [facility] [address] [place], [place] [address] Urea nitrogen [Mass/Vol] 8 7-21 mg/dL Normal 06-10 [facility] (48566) Comment: Performed By: #### CBCD1 ### # [facility] [address] [place] [id number] allied health on 03-06-27 ALLIED HNO ID: [id number] Normal 06-10-2020 [facility] Author: Chaplain Suarez (Chaplain) General Service: Spiritual Care Medical Author Type: Bankruptcy Assistant Center Type: [facility] ([id number]) Filed: 06/10/2020 7:39 PM Note Text: SPIRITUALCARE Spiritual Care Visit- Brief Note Name: Sally Mcgregor Date: June 10, 2020 Notes: Pre-surgery Patient Nothing needed tonight. Bankruptcy Assistant Signature: Chaplain Erick To contact the Spiritual Care Department: Please call [phone] or Page the On-Call Bankruptcy Assistant [place] w[place] eg [phone] Thank you for the opportunity to be of service. This is an electronically created document. IF PRINTED, PLEASE DO NOT REMOVE FROM THE CHART OR MODIFY AR INTED COPY. progress on 2020-05 PROGRESS HNO ID: [id number] Normal 06-09-2020 [place] Author: Kimmie Jennings General Service: General Surgery Medical Author Type: Resident Center Type: Progress Notes ([id number]) Filed: 06/09/2020 7:14 AM Note Text: Attestation [...] questions or concerns Thu-Thu 6a-5p please page [phone]. After 5pm and on Weekends and Holidays, please page [phone]. SUBJECTIVE: NAEON. Afebrile. Patient resting in bed [...] - 06/09/20 0606/09/20699 - 06/10/20 0659 Shift 2985-0002 4085-3889 5461-0887 24 Hour Total 3481-1525 9187-9628 5149-4877 24 Hour Total INTAKE Shift Total OUTPUT [...] (TYLENOL) 975 mg ORAL q 6 H AR N - oxyCODONE IR 5-10 mg tab(s) [...] 13.2 11.7-14.4 % Normal 06-09 [facility] width (RBC) [Ratio] System (29459) Comment: Performed By: #### GFR #### [address] [address] Hematocrit (Bld) [Volume 33.7 34.1-44.9 % Low 06-09 [facility]] System (00 000) Comment: Performed By: #### GFR #### [facility] [address] [place], [place] [address] Hemoglobin (Bld) [Mass/Vol] 10.6 11.2-15.7 g/dL Low [facility] (00 000) Comment: Performed By: #### GFR #### [place] [address] MCH (RBC) [Entitic mass] 28.8 25.6-32.2 pg Normal 06-09 [facility] (00 000) Comment: Performed By: #### GFR #### [place] [address] MCHC (RBC) [Mass/Vol] 31.5 31.6-34.8 % Low 06-09-20 20 [facility] (36092) Comment: Performed By: #### GFR #### [place] [address] MCV (RBC) [Entitic vol] 91.6 79.4-94.8 fl Normal 2019 [facility] (00 000) Comment: Performed By: #### GFR #### [place] [address] Platelet mean volume (Bld) 11.6 9.4-12.[address] [facility] [Entitic vol] System (87137) Comment: Performed By: #### GFR #### [place] [id number] Platelets (Bld) [#/Vol] 199 182-369 thou/cmm Normal 2019 [facility] (00 000) Comment: Performed By: #### GFR #### [place] [address] RBC (Bld) [#/Vol] 3.68 3.93-5.22 mil/cmm Low 06-09-2020 [facility] (99354) Comment: Performed By: #### GFR #### [place] [address] RDW SD 43.9 36.4-46.3 fl Normal 06-09-2020 [facility] (66541) Comment: Performed By: #### GFR #### [facility] [address] [place], [place] [address] WBC (Bld) [#/Vol] 6.47 3.98-10.04 thou/cmm Normal 06-09-2020 [facility] (00 000) Comment: Performed By: #### GFR #### [facility] [address] [place], [place] [address] basic metabolic panel on 2020-06-09 Anion gap [Moles/Vol] 11 9-18 mmol/L Normal 06-09-20 20 [facility] (96866) Comment: Performed By: #### GFR #### [facility] [address] [place], [place] [address] Calcium [Mass/Vol] 8.8 8.5-10.2 mg/dL Normal 06-09-2020 [facility] (13247) Comment: Performed By: #### GFR #### [facility] [address] [place], [place] [address] Chloride [Moles/Vol] 106 97-105 mmol/L High 0 [facility] (00262) Comment: Performed By: #### GFR #### [facility] [address] [place], [place] [address] CO2 Blood 24 22-30 mmol/L Normal 06-09-2020 [facility] (73415) Comment: Performed By: #### GFR #### [facility] [address] [place], [place] [address] Creatinine [Mass/Vol] 0.82 0.58-0.96 mg/dL Normal 06-09-20 20 [facility] (00 000) Comment: Performed By: #### GFR #### [facility] [address] [place], [place] [address] Glucose [Mass/Vol] 84 74-99 mg/dL Normal 06-09-2020 [facility] (39851) Comment: Result Comment: The [place] Diabetes Association (ADA) provides guidance for cutoff [...] Standards of Medical Care in Diabetes 2016; [place] Diabetes Association. Diabetes Care. 2016;39(Suppl 1). Performed By: #### GFR #### [facility] [address] [place], [place] [address] Potassium [Moles/Vol] 3.8 3.7-5.1 mmol/L Normal 06-09-20 [facility] (00 000) Comment: Performed By: #### GFR #### [address] [address] Sodium [Moles/Vol] 141 136-144 mmol/L Normal 06-09-2020 [facility] (63502) Comment: Performed By: #### GFR #### [address] [address] Urea nitrogen [Mass/Vol] 9 7-21 mg/dL Normal 06-09 [facility] (78154) Comment: Performed By: #### GFR #### [address] [address] protime on INR Coag (PPP) [Relative 1.07 0.90-1.30 {INR} Normal 06-08 [facility] time] System (00 000) Comment: Result Comment: Vitamin K An tagonist (VKA) Therapeutic Range: INR 2 to 3 (Target INR of 2.5) Note: For patients treated w ith VKA drugs, such as warfarin, the [place] [employer] Chest [employer] ys[employer] 2012 Guideline recommends a therapeutic INR range of 2 to 3 (target INR of 2.5). This recommendation includes high -risk patients with antiphospholipid syndrome with previous arter ial or venous thromboembolism, current-generation mechanica l or bioprosthetic aortic heart valve replacement. Note: Patients with cnc mechanic al aortic valve replacement and additional risk factors for thromboembolic events (atrial fibrillation, previous throm boembolism, LV dysfunction, hypercoagulable conditions) or an older generation mechanical AVR (i.e., ball in-Cage) or any mechanical MVR should have a INR therapeutic range of 2 .5 to 3.5 target INR of 3). Magdalene GH, et al. Chest 2012 ; 141:7S-47S Calderon FERNÁNDEZ et al. [facility] 20 17; 70: 252-289 Performed By: #### GFR #### [facility] [address] [place], [place] [address] PT Coag (PPP) [Time] 11.1 9.7-13.0 sec Normal 0 [facility] (62438) Comment: Performed By: #### GFR #### [address] [address] phosphorous blood o n 2020-06-08 Phosphate [Mass/Vol] 3.3 2.7-4.8 mg/dL Normal 0 [facility] (77829) Comment: Performed By: #### GFR #### [address] [address] nursing prog on NURSING PROG HNO ID: [id number] Normal 06-08-20 20 [facility] Author: Garo Jackson RN [facility] Center Service: ? ([id number]) Author Type: Registered Nurse Type: Nursing Progress Note Filed: 06/08/2020 10:56 AM Note Text: Nursing Progress Note Patient Name: Sally Mcgregor Patient Location: [address]/[id number] Spoke with Doctor Dick regarding IV contrast allergy and th e need for steroid prep. This note was completed by: Garo Jackson RN mri panc/james wo/w ivcon on 2020-06-08 MRI PANC/JAMES WO/W Final Report Normal 0 [facility] IVCON DATE OF EXAM: Jun 08 2020 6:[address] [place] [address] 0730 - MRI PANC/JAMES WO/W IVCON / ([id number]) PROCEDURE REASON: Liver lesion, >1cm, US indeterminate, [...] x 8.0 cm . 2. Normal MRCP. Bottle Label Inspector: PSCB Transcribe Date/Time: Jun 08 2020 7:48P Dictated by : ALICE ALCARAZ MD This examination was interpreted and the report reviewed and electronically signed by: ALICE ALCARAZ MD on Jun 08 2020 8:42PM EST mri 3d post processing on 2020-06-08 MRI 3D POST Final Report Normal 06-08-2020 Gabriela barboza General PROCESSING DATE OF [facility]AM: Jun 08 [facility] POST PROCESSING / (45126) PROCEDURE REASON: Abd pain, chronic, intermittent Physician [...] x 8.0 cm . 2. Normal MRCP. Bottle Label Inspector: PSCAudrey Transcribe Date/Time: Jun 08 2020 7:48P Dictated by : ALICE ALCARAZ MD This examination was interpreted and the report reviewed and electronically signed by: ALICE ALCARAZ MD on Jun 08 2020 8:42PM EST magnesium blood on 2020-06-08 Magnesium [Mass/Vol] 2.0 1.7-2.3 mg/dL Normal 0 [facility] (23035) Comment: Performed By: #### LIP #### [place] [id number] lipase blood on Lipase Blood 31 16-61 U/L Normal 06-08-2020 [facility] (95837) Comment: Performed By: #### GFR #### [facility] [address] [place], [place] [address] history physical on 2020-06-08 HISTORY HNO ID: [id number] Normal 06-08-2020 [place] PHYSICAL Author: Chris Kurtz [facility] Service: General Surgery Medical Author Type: Resident Center Type: [facility] ([id number]) Filed: 06/08/2020 7:24 AM Note Text: Attestation signed by Mala Almendarez at 06/08/2020 7:09 PM Attending Note I personally saw and examined the patient. I reviewed the resident's note. I agree with the resident's assessment and plan with the [facility] wing revisions and/or additions: Admit for symptomatic [...] Her last admission was for pancreatitis, in [facility] she had imaging showing increasing [...] Benign liver cyst 05/24/2010 CT scan at [facility] 11/2009 and 04/2010 showe 4 mm increase in size . No pain. No elevated LFTs on 03/11/2010. - Calculus of kidney 05/17/[address] Nicolas: Hospitalized age 20, and again later -- no procedures so far ([facility], most, 1995 [facility]) - Cancer (HCC) - Diverticulosis [...] removed - TOTAL ABDOM HYSTERECTOMY 08/31/06 Hysterectomy, [facility] FAMILY HISTORY Problem Relation Age of [...] Approx. 3 cigarettes daily-1 pack every w [place] Substance Use Topics - Alcohol use: Yes [...] hours. Invalid input(s): [facility] Diagnostic tests reviewed for today's visit: Most [...] Albumin [Mass/Vol] 4.7 3.9-4.9 g/dL Normal 06-08-2020 [facility] (05481) Comment: Performed By: #### GFR #### [address] [address] ALP [Catalytic activity/Vol] 94 34-123 U/L Normal 0 06-08-2020 [facility] (00 000) Comment: Performed By: #### GFR #### [address] [address] ALT [Catalytic activity/Vol] 17 7-38 U/L Normal 0 06-08-2020 [facility] (00 000) Comment: Performed By: #### GFR #### [address] [address] AST [Catalytic activity/Vol] see below 13-35 Normal 0 06-08-2020 [facility] (00 000) Comment: Result Comment: Unable to as say. Specimen Hemolyzed Performed By: #### GFR #### [address] [address] Bilirubin [Mass/Vol] 0.3 0.2-1.3 mg/dL Normal 0 [facility] (40647) Comment: Performed By: #### GFR #### [facility] [address] [place], [place] [address] Bilirubin [Mass/Vol] see below 0.0-0.2 Normal 0 [facility] [employer] [facility] (00 000) Comment: Result Comment: Unable to as say. Specimen Hemolyzed Performed By: #### GFR #### [facility] [address] [place], [place] [address] Protein [Mass/Vol] 7.8 6.3-8.0 g/dL Normal 06-08-2020 [facility] (25096) Comment: Performed By: #### GFR #### [facility] [address] [place], [place] [address] hemogram on 2020-05 Erythrocyte distribution 13.3 11.7-14.4 % Normal 06-08 [facility] width (RBC) [Ratio] System (91381) Comment: Performed By: #### LIP #### [facility] [address] [place], [place] [address] Hematocrit (Bld) [Volume 38.1 34.1-44.9 % Normal 06-08 [place] [facility] fraction] System (00 000) Comment: Performed By: #### LIP #### [address] [address] Hemoglobin (Bld) 11.8 11.2-15.7 g/dL Normal 06-08-2020 [facility] [Mass/Vol] System (0 0000) Comment: Performed By: #### LIP #### [facility] [address] [place], [place] [address] MCH (RBC) [Entitic mass] 28.4 25.6-32.2 pg Normal 06-08 [facility] (00 000) Comment: Performed By: #### LIP #### [address] [address] MCHC (RBC) [Mass/Vol] 31.0 31.6-34.8 % Low 06-08-20 20 [facility] (25353) Comment: Performed By: #### LIP #### [facility] [address] [place], [place] [address] MCV (RBC) [Entitic vol] 91.8 79.4-94.8 fl Normal 2019 [facility] (00 000) Comment: Performed By: #### LIP #### [facility] [address] [place] [id number] Platelet mean volume (Bld) 11.6 9.4-12.[address] [facility] [Entitic vol] System (05178) Comment: Performed By: #### LIP #### [facility] [address] [place] [id number] Platelets (Bld) [#/Vol] 230 182-369 thou/cmm Normal 2019 [facility] (00 000) Comment: Performed By: #### LIP #### [facility] [address] [place] [id number] RBC (Bld) [#/Vol] 4.15 3.93-5.22 mil/cmm Normal 06-08-2020 [facility] (00 000) Comment: Performed By: #### LIP #### [facility] [address] [place] [id number] RDW SD 44.9 36.4-46.3 fl Normal 06-08-2020 [facility] (98066) Comment: Performed By: #### LIP #### [facility] [address] [place], [place] [address] WBC (Bld) [#/Vol] 7.30 3.98-10.04 thou/cmm Normal 06-08-2020 [facility] (00 000) Comment: Performed By: #### LIP #### [facility] [address] [place] [id number] case mgt init asses on 2020-06-08 CASE MGT INIT HNO ID: [id number] Normal 020 [facility] Author: Britni (Rn) [facility] Service: Care Management ([id number]) Author Type: Registered Nurse Type: Care Mgt Initial Assessment Filed: 06/08/2020 11:00 AM Note Text: CARE MANAGEMENT: ASSESSMENT AND DISCHARGE PLAN SERVICE DATE: June 08, 2020 SERVICE TIME: 10:50 AM PRIMARY CARE PHYSICIAN: Marcelino Mejia MD (Confirmed with patient) ADMISSION STATUS: Inpatient Needs Prior to Discharge: Pharmacy Bedside Delivery MEDICAL: [facility] MEDICAID 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 Stated Goals: To return home to life as it was Health Insurance: [facility] Issues Impacting Discharge Plan: Uncontrolled Uncontrolled: History [...] completed Advance Directive: Current Advance Directive: None Sample Body Builder Attempted to Assist with AD Completion: Yes [...] Patient Currently Receive Any Community Services or [facility] Care?: None Equipment Prior to Admission: None [...] Completely I feel financially burdened by my och-qg-tdqupd expenses for my prescription medication:: 0 - Disagree Completely Risk Score: 0 Patient is categorized as: Low risk < 2 Are you interested in bedside delivery of your medications? Yes Is Patient Psychosocially Complex?: No ASSESSMENT AND PLAN: Medical Needs: Medical Needs: Two or more chronic diseases Psychosocial Needs: Psychosocial Needs: None FREEDOM OF CHOICE EXPLAINED: Fluker of Choice Given: No Reason Not Given: [...] 08, 2020 TIME: 10:50 AM PAGER/CONTACT #: [phone] basic metabolic panel on 2020-06-08 Anion gap [Moles/Vol] 11 9-18 mmol/L Normal 06-08-20 [facility] (71979) Comment: Performed By: #### LIP #### [address] [address] Calcium [Mass/Vol] 9.6 8.5-10.2 mg/dL Normal 06-08-2020 [facility] (43658) Comment: Performed By: #### LIP #### [address] [address] Chloride [Moles/Vol] 104 97-105 mmol/L Normal 0 [facility] (74874) Comment: Performed By: #### LIP #### [facility] [address] [place], [place] [address] CO2 Blood 25 22-30 mmol/L Normal 06-08-2020 [facility] (53884) Comment: Performed By: #### LIP #### [facility] [address] [place], [place] [address] Creatinine [Mass/Vol] 0.80 0.58-0.96 mg/dL Normal 06-08-20 [facility] (00 000) Comment: Performed By: #### LIP #### [facility] [address] [place], [place] [address] Glucose [Mass/Vol] 91 74-99 mg/dL Normal 06-08-2020 [facility] (88192) Comment: Result Comment: The [place] Diabetes Association (ADA) provides guidance for cutoff [...] Standards of Medical Care in Diabetes 2016; [place] Diabetes Association. Diabetes Care. 2016;39(Suppl 1). Performed By: #### LIP #### [facility] [address] [place], [place] [address] Potassium [Moles/Vol] 3.7 3.7-5.1 mmol/L Normal 06-08-20 20 [facility] (00 000) Comment: Performed By: #### LIP #### [facility] [address] [place], [place] [address] Sodium [Moles/Vol] 140 136-144 mmol/L Normal 06-08-2020 [facility] (18031) Comment: Performed By: #### LIP #### [facility] [address] [place], [place] [address] Urea nitrogen [Mass/Vol] 13 7-21 mg/dL Normal 06-08 [facility] (12405) Comment: Performed By: #### LIP #### [facility] [address] [place] [id number] allied health on 03-06-25 ALLIED HEALTH HNO ID: [id number] Normal 020 [facility] Author: Deepa (Rt) [facility] ([id number]) Service: Radiology Author Type: Staffing Operations Manager Type: Allied Health Filed: 06/08/2020 7:02 PM Note Text: Spoke to Garo (RN), in regards to her itching and scratching after the MRI was completed. Garo informed me that she had been itching an d scratching all day. Garo came down and gave the patient medication for the itching and took her back to the room. Kelley Noriega [facility] HNO ID: [id number] Normal 020 [facility] Author: Deepa Mcintosh) [facility] ([id number]) Service: Radiology Author Type: Staffing Operations Manager Type: Allied Health Filed: 06/08/2020 5:56 PM [...] TIME: 5:53 PM ALLIED HEALTH HNO ID: [id number] Normal 020 [facility] Author: Deepa (Rt) [facility] ([id number]) Service: Radiology Author Type: Staffing Operations Manager Type: Allied Health Filed: 06/08/2020 4:21 PM Note Text: Called RN to get MRI order changed to w/wo per radiology pro tocol. Patient is not listed as allergy to gadolinium and creat is WNL. Mira l schedule STAT MRI as soon as order is changed activated ptt on 03-06-25 aPTT Coag (Bld) [Time] 30.5 23.0-32.4 sec Normal 020 [facility] (00 000) Comment: Result Comment: Unfractionat [...] AP TT reagent in use throughout the [facility]. Performed By: #### GFR #### [facility] [address] [place] [address] hosp on 2020-06-07 HOSP Patient:Sally Mcgregor Normal 05-16 [place] MRN: General Height:5' 1(1.549 m) Medical Weight:197 lb 9.6 oz (89.631 kg) Center Outpatient Medications as of 06/11/20: ([id number]) prazosin (MINIPRESS) 1 mg cap hyoscyamine (LEVSIN) [...] resident's [facility] revisions and/or additions: Admit for symptomatic hepatic cyst. Plan for cyst fenestrati on on Thursday. Signature: Mala Almendarez MD Date: 06/08/2020 Time: 7:09 PM HISTORY AND PHYSICAL EXAMINATION SERVICE DATE: 06/08/2020 SERVICE TIME: 7:12 AM Subjective CHIEF COMPLAINT: Abdominal Pain HPI: 39 year old female presents as a direct adm ission to [facility] with abdominal pain and a known [...] Benign liver cyst 05/24/2010 CT scan at [facility] 11/2009 and 04/2010 showe 4 mm increase in size . No pain. No elevated LFTs on 03/11/2010. - Calculus of kidney 05/17/[address] Nicolas: Hospitalized age 20, a nd again later -- no procedures so far ([facility], [place], 1995 [facility]) - Cancer (HCC) - Diverticulosis [...] removed - TOTAL ABDOM HYSTERECTOMY 08/31/06 Hysterectomy, [facility] FAMILY HISTORY Problem Relation Age of [...] Approx. 3 cigarettes daily-1 pack every w [place] Substance Use Topics - Alcohol use: Yes [...] questions or concerns Thu-Thu 6a-5p please page [phone]. After 5pm and on Weekends an d Holidays, please page [phone] if in ICU or [phone] if on RNF. 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 Stated Goals: To return home to life as it was Health Insurance: [facility] Issues Impacting Discharge Plan: Uncontrolled Uncontrolled: History [...] completed Advance Directive: Current Advance Directive: None Sample Body Builder Attempted to Assist with AD Completion: Yes [...] Patient Currently Receive Any Community Services or [facility] e Care?: None Equipment Prior to [...] Completely I feel financially burdened by my eay-en-kzszox expens es for my prescription medication:: 0 - Disagree Completely Risk Score: 0 Patient is categorized as: Low risk < 2 Are you interested in bedside delivery of your medications? Yes Is Patient Psychosocially Complex?: No ASSESSMENT AND PLAN: Medical Needs: Medical Needs: Two or more chronic diseases Psychosocial Needs: Psychosocial Needs: None FREEDOM OF CHOICE EXPLAINED: Fluker of Choice Given: No Reason Not Given: [...] 08, 2020 TIME: 10:50 AM PAGER/CONTACT #: [phone] Jasmine Chavez, RN 06/08/2020 10:56 AM Signed Nursing Progress Note Patient Name: Sally Mcgregor Patient Location: [place] [address] [address] Spoke with Doctor Jennings regarding IV con trast allergy and the need for steroid prep. This note was completed by: IVN Chavez RT, Tech 06/08/2020 4:21 PM Signed Called RN to get MRI order changed to w/wo per r adiology protocol. Patient is not listed as allergy to krissy olinium and creat is WNL. Will schedule STAT MRI as soon as order is changed RT Masoud, Zbird 06/08/2020 5:56 PM Signed Radiology Service Progress [...] questions or concerns Thu-Thu 6a-5p please page [phone]. After 5pm and on Weekends and Holidays, please page [phone]. SUBJECTIVE: NAEON. Afebrile. Patient resting in bed [...] 06/08/206[address] - 06/09/2065806/09/20699 - 06/10/20 0659 Shift 7249-8020 7705-5600 23 00-0659 24 Hour Total 6393-9605 0213-0411 5643-4647 24 Hour Total INTAKE Shift Total OUTPUT [...] (TYLENOL) 975 mg ORAL q 6 H AR N - oxyCODONE IR 5-10 mg tab(s) [...] questions or concerns Thu-Thu 6a-5p please page [phone]. After 5pm and on Weekends an d Holidays, please page [phone] if in ICU or [phone] if on RNF. Mer Bejarano, RN, RN [...] questions or concerns Mon-Fri 6a-5p please page [phone]. After 5pm and on Weekends and Holidays, please page [phone]. SUBJECTIVE: NAEON. Afebrile. Patient resting in bed [...] - 06/10/20 0606/10/20699 - 06/11/20 0659 Shift 6493-7496 6992-8230 23 00-0659 24 Hour Total 7565-6151 8040-5457 9931-4484 24 Hour Total INTAKE PO 872 599 6596 PO 861 830 9522 Shift Total 634 202 9548 OUTPUT Urine Urine Not Saved. 2 x [...] questions or concerns Thu-Thu 6a- please page [phone]. After 5pm and on Weekends an d [...] 2020 Notes: Pre-surgery Patient Nothing needed tonight. Bankruptcy Assistant Signature: Chaplain Erick To contact the Spiritual Care Department: Please call [phone] or Page the On-Call Bankruptcy Assistant at pag er [phone] Thank you for the opportunity to be of service. This is an electronically created document. IF PRINTED, PLEASE DO NOT REMOVE FROM THE CHART OR MODIFY AR INTED COPY. Kimmie Jennings DO 06/11/2020 7:03 AM Cosign Needed Elective General Surgery Progress Note SERVICE DATE: 06/11/2020 [facility] General Surgery Service Pager: For questions or concerns Thu-Thu 6a- please page [phone]. After 5pm and on Weekends and Holidays, please page [phone]. SUBJECTIVE: NAEON. Afebrile. Patient resting in bed [...] 06/10/20699 - 06/11/2065806/11/20699 - 06/12/20 0659 Shift 0439-9155 6686-5789 23 00-0659 24 Hour Total 2772-4958 8488-7394 8492-8209 24 Hour Total INTAKE PO 600 600 [...] questions or concerns Thu-Thu 6a-5p please page [phone]. After 5pm and on Weekends an d [...] 11, 2020 TIME: 9:10 AM PAGER/CONTACT #: [phone] Ruben Thompson MD 06/11/2020 9:51 AM Signed [...] Benign liver cyst 05/24/2010 CT scan at [facility] 11/2009 and 04/2010 showe 4 mm increase in size . No pain. No elevated LFTs on 03/11/2010. - Calculus of kidney 05/17/[address] Nicolas: Hospitalized age 20, a nd again later -- no procedures so far ([facility], [facility] [place], [facility]) - Cancer (HCC) - Diverticulosis [...] removed - TOTAL ABDOM HYSTERECTOMY 08/31/06 Hysterectomy, [facility] FAMILY HISTORY Problem Relation Age of [...] Approx. 3 cigarettes daily-1 pack every w [place] Substance Use Topics - Alcohol use: Yes [...] INTRAVENOUS q 3 H PRN Nigel (Res) [place] 1 mg at 0536 - [MAR Hold [...] June 11, 2020 TIME: 9:49 AM CSN: [id number] Progress Notes ([facility]): Johnny Winn MD 06/06/2020 10:30 AM [...] ysts. All questions answered. MD Rebekah Cunningham [facility] 06/06/2020 10:53 AM Signed Patient is calling back with additional questions after speaking with Dr. Winn today. Please call patient. cnpn on 2020-06-06 CNPN Telephone (GSTNOR) Normal 06-06-[address] [place] [facility] SAMSALLY ([id number]) 1980 [facility] Date Time Provider Department ([id number]) 06/06/20 JOHNNY WINN GSTNOR During your visit [...] ysts. All questions answered. MD Rebekah Cunningham [facility] Pss 06/06/2020 10:53 AM Signed Patient is [...] Order(s):CONSULT TO ALLERGY/IMMUNOLOGY [ 9001] Order #: [id number]: 1 FUTURE Prescriptions as of 06/06/2020 Sig: [...] 06/06/20 progress on 2020-05 PROGRESS HNO ID: [id number] Normal 06-05-2020 [facility] Author: Mala sosa ([id number]) Service: ? Author Type: Physician Type: Progress [...] MD progress on 2020-05 PROGRESS HNO ID: [id number] Normal 06-01-2020 [facility] Author: Branden PickardNetwork Navigator) Amalia Mata ([id number]) Service: ? Author Type: Post Anesthesia Room Nurse Type: Progress Notes Filed: 06/01/2020 12:42 PM Note Text: Patient has follow up with next Thursday for Pancreatitis. progress on 2020-05 PROGRESS HNO ID: [id number] Normal 05-31-2020 [facility] Author: Marcelino Mejia [place] ([id number]) Service: ? 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 She has been seeing them for recurring pancreatit is and stomach issues. I have nothing further I can add to her care at this time. PROGRESS HNO ID: [id number] Normal 05-31-2020 [facility] Author: Branden (Network Navigator) Amalia [place] ([id number]) Service: ? Author Type: Post Anesthesia Room Nurse Type: Progress Notes Filed: 05/31/2020 8:49 AM [...] appointment. 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 SALLY MCGREGOR ([id number]) 1980 [facility] Date Time Provider Department ([id number]) 05/31/20 JOHNNY WINN GSTNOR During your visit today, we recorded the following informati on about you: Pierce Sunil Cates 05/31/2020 2:37 PM Signed Patient call, said she was doing ok yesterday, today having epigastric abdominal pain, nausea and vomiting. Has appt [facility] Dr. Almendarez next week. Advised ER [...] 05/31/20 progress on 2020-05 PROGRESS HNO ID: [id number] Normal 05-30-2020 [facility] Author: Allie (Network Navigator) Skyler Mata ([id number]) Service: ? Author Type: Post Anesthesia Room Nurse Type: Progress Notes Filed: 05/31/2020 8:49 AM Note Text: TRANSITIONAL CARE MANAGEMENT (TCM) COMMUNITY MONITORING PROG BRITTANI Provider Action/FYI: Message left for patient. Attempting to schedule TCM appoint ment SUMMARY: Pt discharged from [place] on 05/29. Admitted for: intractable nausea and vomiting Contact made with patient: No - scheduled next outreach for next business day in the Track Pt Outreach section Outreach ended cnptoutreach on CNPTOUTREACH Patient Outreach (FAMPWS) Normal 0 05-30-2020 [place] SALLY Martinez ([id number]) 1980 [place] Date Time Provider Department (89287) 05/30/20 ALLIE CHOWDHURY (NETWORK NAVIGATOR)RAMA During your visit today, we recorded the following informati on about you: ANDRE Sorensen 05/31/2020 8:49 AM Signed TRANSITIONAL CARE MANAGEMENT (TCM) COMMUNITY MONITORING PROG BRITTANI Provider Action/FYI: Message left for patient. Attempting to schedule TCM appoint ment SUMMARY: Pt discharged from [place] on 05/29. Admitted for: intractable nausea and [...] appointment. 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 initi al outreach [...] 05/31/20 progress on 2020-05 PROGRESS HNO ID: [id number] Normal 05-29-2020 [place] Author: Vickie Srivastava [facility] Service: Hospital Medicine Medical Author Type: Resident Center Type: Progress Notes ([id number]) Filed: 05/29/2020 2:51 PM Note Text: Attestation [...] You may reach the House Medicine internal controls manager currently assigned to this patient by jack mahoney their pager number on the treatment team (they will be assigned as the i ntern or resident). It is the last four digits in the phone number be ginning with ([phone]). We encourage the use of Contractually Secure Chat. SUBJECTIVE HPI: 39 year old F PMHx idiopathic pancreatitis, hepatic cys ts presenting to the ED with intractable nausea and vomiting as well as RU Q abdominal pain for the past 3 days. States that she called her GI doct or Dr. Winn and he told her to come into the ED. She has a scope [facility] ed for 05/[address] Winn. [...] DAILY 05/25/201935 -- 05/25/201944 pneumatic compression stockings (me,oh) VTE Prophylaxis: VTE prophylaxis appropriate GI Prophylaxis: Indicated due to chronic acid suppression th erapy as an outpatient Telemetry: no Disposition: Home Code Status: Not on file Plan of care discussed with: Provider, RN, Patient SIGNATURE: Vickie Srivastava MD PATIENT NAME: Sally shannon DATE: May 29, 2020 TIME: 1:53 PM plan of care on PLAN OF CARE HNO ID: [id number] Normal 05-29-20 [facility] Author: Felix Foster (Pharmacist) Center ([id number]) Service: Pharmacy Author Type: Pharmacist Type: Plan of Care Filed: 05/29/2020 2:49 PM Note Text: MEDICATION RECONCILIATION Patient Name:Marlen Mcgregor : 1980 Reconciliation: Yes All SOLUTION ADVISOR medications addressed by LIP Additional comments: aggree with student note Allergies: ALLERGIES Allergen Reactions - Penicillins Rash - Cephalexin Itching - Chlorhexidine Rash Skin rash - Toradol [Ketorolac] Rash - Tramadol Rash - Asa [Salicylates] Other: See Comments ulcers - Contrast Dye [Iodin* Shortness of Breath - Ibuprofen GI Upset - Prednisone Other: See Comments makes agitated and mean Preferred Pharmacy: [facility] Current SOLUTION ADVISOR Medications: Prior to Admission medications as of 05/29/20 0928 Medication Sig Last Dose Taking prazosin (MINIPRESS) 1 mg cap Take 1 mg by mouth daily at [facility]. Yes hyoscyamine (LEVSIN) 0.125 mg tablet Take [...] 2:47 PM PLAN OF CARE HNO ID: [id number] [place] 05-29-20 [facility] Author: Felix Foster (Pharmacist) [place] ([id number]) Service: Pharmacy Author Type: Pharmacist Type: Plan [...] CORADO May 29, 2020 2:50 PM Pager: [phone] 05/29/2020 2:50 PM Medication List START taking [...] sent to [facility]/pharmacy [id number] [place] [address] - [address] [facility] [phone] [address] [address] [facility] [address] ? oxyCODONE IR 5 mg immediate release tablet PLAN OF CARE HNO ID: [id number] [place] 05-29-20 [facility] Author: Felix Foster (Pharmacist) Center ([id number]) Service: Pharmacy Author Type: Pharmacist Type: Plan of Care Filed: 05/29/2020 2:47 PM Note Text: MEDICATION HISTORY Patient Name:Marlen Mcgregor : 1980 Source of history:Patient: Reliability of source: Appears re liable, clearly identified: Medication name, Medication frequency an d Timing of last dose and Pharmacy records: [facility] Pharmacy #[id number] in [place], [place] [phone] Medication Nonadherence Identified: No barriers noted The above information represents the best possible medicatio n history: Yes Additional comments: Confirmed with patient and pharmacist hanna t [facility] Pharmacy - Recent changes to medications outpatient from Dr. Winn, patient did not start Sucralfate and Promethazine prior to admission and only took 1 dose of Hyoscyamine prior to admission Dbtjx-ll-Pjfhotcoo Medication List Adjustments: Medication Regimen Changes: Promethazine [...] Comments makes agitated and mean Preferred Pharmacy: [facility] Pharmacy #[id number] phone [phone] Current SOLUTION ADVISOR Medications: Prior to Admission medications as of 05/29/20 0925 Medication Sig Last Dose Taking prazosin (MINIPRESS) 1 mg cap Take 1 mg by mouth daily at [facility]. Yes hyoscyamine (LEVSIN) 0.125 mg [...] stomach, 1/2 hr before meal. Maggi Hernandez (Examination Proctor) May 29, 2020 9:14 AM mdrd gfr on 2020-05 GFR/1.73 sq M >60 >60mL/min/1.73m2 mL/min/{1.73_m2} Normal [place] [facility] among [facility] th System non-blacks MDRD (000 00) (S/P/Bld) [Vol rate/Area] Comment: Result Comment: If the patie nt is , multiply the result by 1.210. Performed By: #### GFR #### [address] [address] hemogram on 2020-05 Erythrocyte distribution 13.2 11.7-14.4 % Normal 05-29 [facility] width (RBC) [Ratio] System (86421) Comment: Performed By: #### LIP #### [address] [address] Hematocrit (Bld) [Volume 36.1 34.1-44.9 % Normal 05-29 [place] fraction] System (00 000) Comment: Performed By: #### LIP #### [address] [address] Hemoglobin (Bld) 11.5 11.2-15.7 g/dL Normal 05-29-2020 [facility] [place] [Mass/Vol] System (0 0000) Comment: Performed By: #### LIP #### [address] [address] MCH (RBC) [Entitic mass] 29.0 25.6-32.2 pg Normal 05-29 [facility] (00 000) Comment: Performed By: #### LIP #### [address] [address] MCHC (RBC) [Mass/Vol] 31.9 31.6-34.8 % Normal 05-29-20 20 [facility] (32717) Comment: Performed By: #### LIP #### [facility] [address] [place], [place] [address] MCV (RBC) [Entitic vol] 90.9 79.4-94.8 fl Normal 2019 [facility] (00 000) Comment: Performed By: #### LIP #### [facility] [address] [place], [place] [address] Platelet mean volume (Bld) 10.9 9.4-12.[address] [facility] [Entitic vol] System (52080) Comment: Performed By: #### LIP #### [facility] [address] [place], [place] [address] Platelets (Bld) [#/Vol] 223 182-369 thou/cmm Normal 2019 [facility] (00 000) Comment: Performed By: #### LIP #### [facility] [address] [place], [place] [address] RBC (Bld) [#/Vol] 3.97 3.93-5.22 mil/cmm Normal 05-29-2020 [facility] (00 000) Comment: Performed By: #### LIP #### [facility] [address] [place], [place] [address] RDW SD 43.5 36.4-46.3 fl Normal 05-29-2020 [facility] (93926) Comment: Performed By: #### LIP #### [facility] [address] [place], [place] [address] WBC (Bld) [#/Vol] 5.88 3.98-10.04 thou/cmm Normal 05-29-2020 [facility] (00 000) Comment: Performed By: #### LIP #### [facility] [address] [place], [place] [address] consult on CONSULT HNO ID: [id number] Normal 05-29-2020 [facility] Author: Maria Luisa Joyner [facility] Service: Pain Management ([id number]) Author Type: Physician Type: Consults Filed: 05/29/2020 11:10 AM Note Text: SALLY MCGREGOR 39 year old PAIN CONSULTATION: Abdominal pain, history of idiopathic [place] creatitis. 24 HOUR COMFORT MEDICATIONS: Tylenol x0 Benadryl 50 mg x 2 Phenergan 25 mg x 2 Oxycodone 10 mg x 3 Quetiapine 100 mg daily [place] prescription history Shows occasional use of opiates, [...] hepatic cysts, and no evidence of ac [place] pancreatitis with normal lipase, and CBC. At [...] (TYLENOL) 650 mg ORAL q 4 H AR N Johnny Winn - prazosin (MINIPRESS) 1 [...] Approx. 3 cigarettes daily-1 pack every w [place] Substance Use Topics - Alcohol use: Yes [...] gap [Moles/Vol] 11 9-18 mmol/L Normal 05-29-20 [facility] (13538) Comment: Performed By: #### LIP #### [facility] [address] [place], [place] [address] Calcium [Mass/Vol] 8.8 8.5-10.2 mg/dL Normal 05-29-2020 [facility] (68665) Comment: Performed By: #### LIP #### [facility] [address] [place], [place] [address] Chloride [Moles/Vol] 104 97-105 mmol/L Normal 0 [facility] (62021) Comment: Performed By: #### LIP #### [facility] [address] [place], [place] [address] CO2 Blood 23 22-30 mmol/L Normal 05-29-2020 [facility] (55105) Comment: Performed By: #### LIP #### [facility] [address] [place], [place] [address] Creatinine [Mass/Vol] 0.78 0.58-0.96 mg/dL Normal 05-29-20 [facility] (00 000) Comment: Performed By: #### LIP #### [facility] [address], [place] [address] Glucose [Mass/Vol] 88 74-99 mg/dL Normal 05-29-2020 [facility] (60934) Comment: Result Comment: The [place] Diabetes Association (ADA) provides guidance for cutoff [...] Standards of Medical Care in Diabetes 2016; [place] Diabetes Association. Diabetes Care. 2016;39(Suppl 1). Performed By: #### LIP #### [facility] [address], [place] [address] Potassium [Moles/Vol] 3.4 3.7-5.1 mmol/L Low 05-29-20 [facility] (59573) Comment: Performed By: #### LIP #### [facility] [address] [address] Sodium [Moles/Vol] 138 136-144 mmol/L Normal 05-29-2020 [facility] (72856) Comment: Performed By: #### LIP #### [facility] [address] [address] Urea nitrogen [Mass/Vol] 6 7-21 mg/dL Low 05-29 [facility] (04744) Comment: Performed By: #### LIP #### [facility] [address] [address] surgical tissue exam on 2020-05-28 Surgical Tissue Test performed at [facility] Normal 05-28-2020 [facility] [address] [address] ([id number]) NAME: SALLY MCGREGOR REQUESTING: JOHNNY WINN MD [...] 1 Comment: Performed By: #### LIP #### [facility] [address] [address] pt ed on 2020-05-28 PT ED HNO ID: [id number] Normal 05-28-2020 [facility] Author: Flakita Ragland RN Center ([id number]) Service: Nursing Author Type: Registered Nurse Type: [...] Flakita Ragland RN PT ED HNO ID: [id number] [place] 05-28-2020 [facility] Author: Flakita Ragland RN [place] ([id number]) Service: Nursing Author Type: Registered Nurse Type: [...] RN progress on 2020-05 PROGRESS HNO ID: [id number] [place] 05-28-2020 [place] Author: Vickie Beck [facility] Service: Hospital Medicine Medical Author Type: Resident Center Type: Progress Notes ([id number]) Filed: 05/28/2020 1:52 PM Note Text: Attestation [...] You may reach the House Medicine internal controls manager currently assigned to this patient by findin g their pager number on the treatment team (they will be assigned as the i ntern or resident). It is the last four digits in the phone number be ginning with ([phone]). We encourage the use of Contractually Secure Chat. SUBJECTIVE HPI: 39 year old F PMHx idiopathic pancreatitis, hepatic cys ts presenting to the ED with intractable nausea and vomiting as well as RU Q abdominal pain for the past 3 days. States that she called her GI doct or Dr. Winn and he told her to come into the ED. [facility] ed for [facility] Winn. [...] operative no on OPERATIVE NO HNO ID: [id number] Normal 05-28-20 [facility] Author: [facility] Service: Gastroenterology ([id number]) Author Type: Physician Type: Operative Report Filed: 05/28/2020 1:07 PM Note Text: OPERATIVE/PROCEDURE REPORT LOG ID: [id number] Surgery/Procedure Date: 05/28/2020 Incision/Procedure Start Time: 12:32 PM Incision Close/Procedure End Time: 1:00 PM Surgeon(s)/Proceduralist(s) and Commercial Counsel(s): Surgeon(s) and Role: * [facility] [place] - Primary No Additional Staff Procedure(s): Endoscopic [...] PPI. nursing prog on NURSING HNO ID: [id number] Normal 05-28-2020 [facility] Author: Rupal (Rn) VIN [facility] General Service: [...] Erythrocyte distribution 13.2 11.7-14.4 % Normal 05-28 [facility] width (RBC) [Ratio] System (63504) Comment: Performed By: #### LIP #### [facility] [address], [place] [address] Hematocrit (Bld) [Volume 32.2 34.1-44.9 % Low 05-28 [facility]] System (00 000) Comment: Performed By: #### LIP #### [facility] [address], [place] [address] Hemoglobin (Bld) [Mass/Vol] 10.1 11.2-15.7 g/dL Low [facility] (00 000) Comment: Performed By: #### LIP #### [facility] [address], [place] [address] MCH (RBC) [Entitic mass] 28.5 25.6-32.2 pg Normal 05-28 [facility] (00 000) Comment: Performed By: #### LIP #### [facility] [address] [place], [place] [address] MCHC (RBC) [Mass/Vol] 31.4 31.6-34.8 % Low 05-28-20 20 [facility] (41312) Comment: Performed By: #### LIP #### [facility] [address] [place], [place] [address] MCV (RBC) [Entitic vol] 90.7 79.4-94.8 fl Normal 2019 [facility] (00 000) Comment: Performed By: #### LIP #### [facility] [address] [address] Platelet mean volume (Bld) 10.7 9.4-12.[address] [facility] [Entitic vol] System (53598) Comment: Performed By: #### LIP #### [facility] [address] [place] [id number] Platelets (Bld) [#/Vol] 186 182-369 thou/cmm Normal 2019 [facility] (00 000) Comment: Performed By: #### LIP #### [facility] [address] [address] RBC (Bld) [#/Vol] 3.55 3.93-5.22 mil/cmm Low 05-28-2020 [facility] (83509) Comment: Performed By: #### LIP #### [facility] [address] [address] RDW SD 43.3 36.4-46.3 fl Normal 05-28-2020 [facility] (38852) Comment: Performed By: #### LIP #### [facility] [address] [place] [id number] WBC (Bld) [#/Vol] 6.36 3.98-10.04 thou/cmm Normal 05-28-2020 [facility] (00 000) Comment: Performed By: #### LIP #### [facility] [address] [address] consult on CONSULT HNO ID: [id number] Normal 05-28-2020 [facility] Author: Ramone Albarado [facility] Service: Pain Management ([id number]) Author Type: Physician Type: Consults Filed: 05/28/2020 9:09 AM Note Text: SALLY MCGREGOR 39 year old PAIN CONSULTATION: Abdominal pain, history of idiopathic verdugo creatitis. 24 HOUR COMFORT MEDICATIONS: Oxycodone 10 mg x 3 Quetiapine 100 mg daily [place] prescription history Shows occasional use of opiates, [...] hepatic cysts, and no evidence of ac [place] pancreatitis with normal lipase, and CBC. At this time, not experiencing any fever, chills, sweats, he matemesis, hematochezia, additional GI, , constitutional, pulmonary, or other symptoms. Current Facility-Administered Medications Medication Dose Route Frequency Provider Last Rate Last Dose - oxyCODONE IR 10 mg tab(s) (ROXICODONE) 10 mg ORAL q 6 H AR N Maggi (Res) MD Mark 10 mg [...] (TYLENOL) 650 mg ORAL q 4 H AR N Eduar (Res) Metry - hyoscyamine (LEVSIN) [...] Approx. 3 cigarettes daily-1 pack every w [place] Substance Use Topics - Alcohol use: Yes [...] gap [Moles/Vol] 8 9-18 mmol/L Low 05-28-20 [facility] (17357) Comment: Performed By: #### LIP #### [facility] [address] [address] Calcium [Mass/Vol] 7.2 8.5-10.2 mg/dL Low 05-28-2020 [facility] (86400) Comment: Performed By: #### LIP #### [facility] [address] [place], [place] [address] Chloride [Moles/Vol] 111 97-105 mmol/L High 0 [facility] (81988) Comment: Performed By: #### LIP #### [facility] [address] [place], [place] [address] CO2 Blood 22 22-30 mmol/L Normal 05-28-2020 [facility] (15992) Comment: Performed By: #### LIP #### [facility] [address] [place], [place] [address] Creatinine [Mass/Vol] 0.69 0.58-0.96 mg/dL Normal 05-28-20 [facility] (00 000) Comment: Performed By: #### LIP #### [facility] [address] [place], [place] [address] Glucose [Mass/Vol] 73 74-99 mg/dL Low 05-28-2020 [facility] (18401) Comment: Result Comment: The [place] Diabetes Association (ADA) provides guidance for cutoff [...] Standards of Medical Care in Diabetes 2016; [place] Diabetes Association. Diabetes Care. 2016;39(Suppl 1). Performed By: #### LIP #### [facility] [address] [place], [place] [address] Potassium [Moles/Vol] 2.9 3.7-5.1 mmol/L Low 05-28-20 [facility] (88088) Comment: Performed By: #### LIP #### [facility] [address] [place], [place] [address] Sodium [Moles/Vol] 141 136-144 mmol/L Normal 05-28-2020 [facility] (74612) Comment: Performed By: #### LIP #### [facility] [address] [place], [place] [address] Urea nitrogen [Mass/Vol] 5 7-21 mg/dL Low 05-28 [facility] (85116) Comment: Performed By: #### LIP #### [facility] [address] [place], [place] [address] anes preop on 05-28 ANES PREOP HNO ID: [id number] Normal 05-28-2020 [facility] Author: Delon Florence [facility] Service: Anesthesiology ([id number]) Author Type: Physician Type: Anesthesia PreOp Filed: [...] Benign liver cyst 05/24/2010 CT scan at [facility] 11/2009 and 04/2010 showe 4 mm increase in size . No pain. No elevated LFTs on 03/11/2010. - Calculus of kidney 05/17/[address] Nicolas: Hospitalized age 20, and again later -- no procedures so far ([facility], [place], 1995 [facility]) - Cancer (HCC) - Diverticulosis [...] removed - TOTAL ABDOM HYSTERECTOMY 08/31/06 Hysterectomy, [facility] FAMILY HISTORY Problem Relation Age of [...] Approx. 3 cigarettes daily-1 pack every w [place] Substance Use Topics - Alcohol use: Yes [...] May 28, 2020 TIME: 12:15 PM CSN: [id number] anes post on 0 -14 ANES POST HNO ID: [id number] Normal 05-28-2020 [facility] Author: Delon Duenas [place] ([id number]) Service: Anesthesiology Author Type: Physician Type: Anesthesia [...] 1001 progress on 2020-05 PROGRESS HNO ID: [id number] [place] 05-27-2020 [place] Author: Vickie Srivastava [facility] Service: Hospital Medicine Medical Author Type: Resident Center Type: Progress Notes ([id number]) Filed: 05/27/2020 4:19 PM Note Text: Attestation [...] You may reach the House Medicine internal controls manager currently assigned to this patient by findin g their pager number on the treatment team (they will be assigned as the i ntern or resident). It is the last four digits in the phone number be ginning with ([phone]). We encourage the use of Contractually Secure Chat. SUBJECTIVE HPI: 39 year old F PMHx idiopathic pancreatitis, hepatic cys ts presenting to the ED with intractable nausea and vomiting as well as RU Q abdominal pain for the past 3 days. States that she called her GI doct or Dr. Winn and he told her to come into the ED. She [facility] Winn. [...] DAILY 05/25/201935 -- 05/25/201944 pneumatic compression stockings (me,mo) VTE Prophylaxis: VTE prophylaxis appropriate GI Prophylaxis: Indicated due to chronic acid suppression th erapy as an outpatient Telemetry: no Disposition: Home Code Status: Not on file Plan of care discussed with: Provider, RN, Patient SIGNATURE: Vickie Srivastava MD PATIENT NAME: Sally shannon DATE: May 27, 2020 TIME: 1:53 PM plan of care on PLAN OF CARE HNO ID: [id number] Normal 05-27-20 [facility] Author: Joe Romero) [facility] Service: Gastroenterology ([id number]) Author Type: Physician Commercial Counsel Type: Plan of Care Filed: 05/27/2020 1:17 [...] (TYLENOL) 650 mg ORAL q 4 H AR N - oxyCODONE IR 10 mg tab(s) (ROXICODONE) 10 mg ORAL q 6 H AR N Objective PHYSICAL EXAM: VITALS:BP 119/74 Pulse [...] 27, 2020 TIME: 1:15 PM PAGER/CONTACT #: [employer] Pager hemogram on 2020-05 Erythrocyte distribution 13.3 11.7-14.4 % Normal 05-27 [facility] width (RBC) [Ratio] System (23314) Comment: Performed By: #### LIP #### [facility] [address] [place], [place] [address] Hematocrit (Bld) [Volume 35.9 34.1-44.9 % Normal 05-27 [facility] fraction] System (00 000) Comment: Performed By: #### LIP #### [facility] [address] [place], [place] [address] Hemoglobin (Bld) 11.3 11.2-15.7 g/dL Normal 05-27-2020 [facility] [Mass/Vol] System (0 0000) Comment: Performed By: #### LIP #### [facility] [address] [place], [place] [address] MCH (RBC) [Entitic mass] 29.1 25.6-32.2 pg Normal 05-27 [facility] (00 000) Comment: Performed By: #### LIP #### [facility] [address] [place], [place] [address] MCHC (RBC) [Mass/Vol] 31.5 31.6-34.8 % Low 05-27-20 20 [facility] (61855) Comment: Performed By: #### LIP #### [address] [address] MCV (RBC) [Entitic vol] 92.5 79.4-94.8 fl Normal 2019 [facility] (00 000) Comment: Performed By: #### LIP #### [facility] [address] [place], [place] [address] Platelet mean volume (Bld) 10.6 9.4-12.[address] [facility] [Entitic vol] System (44482) Comment: Performed By: #### LIP #### [facility] [address] [place], [place] [address] Platelets (Bld) [#/Vol] 197 182-369 thou/cmm Normal 2019 [facility] (00 000) Comment: Performed By: #### LIP #### [facility] [address] [place] [id number] RBC (Bld) [#/Vol] 3.88 3.93-5.22 mil/cmm Low 05-27-2020 [facility] (52917) Comment: Performed By: #### LIP #### [facility] [address] [address] RDW SD 44.6 36.4-46.3 fl Normal 05-27-2020 [facility] (75545) Comment: Performed By: #### LIP #### [facility] [address] [place], [place] [address] WBC (Bld) [#/Vol] 6.15 3.98-10.04 thou/cmm Normal 05-27-2020 [facility] (00 000) Comment: Performed By: #### LIP #### [facility] [address] [place] [id number] basic metabolic panel on 2020-05-27 Anion gap [Moles/Vol] 10 9-18 mmol/L Normal 05-27-20 [facility] (62288) Comment: Performed By: #### LIP #### [facility] [address] [place] [id number] Calcium [Mass/Vol] 8.6 8.5-10.2 mg/dL Normal 05-27-2020 [facility] (57049) Comment: Performed By: #### LIP #### [facility] [address] [place] [id number] Chloride [Moles/Vol] 106 97-105 mmol/L High 0 [facility] (57046) Comment: Performed By: #### LIP #### [facility] [address] [place], [place] [address] CO2 Blood 24 22-30 mmol/L Normal 05-27-2020 [facility] (50799) Comment: Performed By: #### LIP #### [facility] [address] [place], [place] [address] Creatinine [Mass/Vol] 0.87 0.58-0.96 mg/dL Normal 05-27-20 [facility] (00 000) Comment: Performed By: #### LIP #### [facility] [address] [place], [place] [address] Glucose [Mass/Vol] 82 74-99 mg/dL Normal 05-27-2020 [facility] (16572) Comment: Result Comment: The [place] Diabetes Association (ADA) provides guidance for cutoff [...] Standards of Medical Care in Diabetes 2016; [place] Diabetes Association. Diabetes Care. 2016;39(Suppl 1). Performed By: #### LIP #### [facility] [address] [place], [place] [address] Potassium [Moles/Vol] 3.5 3.7-5.1 mmol/L Low 05-27-20 20 [facility] (55753) Comment: Performed By: #### LIP #### [facility] [address] [place], [place] [address] Sodium [Moles/Vol] 140 136-144 mmol/L Normal 05-27-2020 [facility] (97113) Comment: Performed By: #### LIP #### [facility] [address] [place], [place] [address] Urea nitrogen [Mass/Vol] 7 7-21 mg/dL Normal 05-27 [facility] (08011) Comment: Performed By: #### LIP #### [facility] [address] [place], [place] [address] progress on 2020-05 PROGRESS HNO ID: [id number] Normal 05-26-2020 [place] Author: Vickie Srivastava [facility] Service: Hospital Medicine Medical Author Type: Resident Center Type: Progress Notes ([id number]) Filed: 05/26/2020 2:11 PM Note Text: Attestation signed by Oh Arreaga at 05/26/2020 2:23 PM Attending Note I personally saw and examined the patient on 05/26/20. I rev iewed the resident's note. I agree with the resident's assessment and plan unless otherwise noted. Signature: Oh Arreaga DO Date: 05/26/2020 Time: 2:23 PM Pager: [phone] HOUSE MEDICINE SERVICE PROGRESS NOTE SERVICE DATE: May 26, 2020 SERVICE TIME: 1:53 PM NIGHT AND WEEKEND COVERAGE: From 6 AM to 5 PM: You may reach the House Medicine internal controls manager currently assigned to this patient by findin g their pager number on the treatment team (they will be assigned as the i ntern or resident). It is the last four digits in the phone number be ginning with ([phone]). We encourage the use of Contractually Secure Chat. SUBJECTIVE HPI: 39 year old F PMHx idiopathic pancreatitis, hepatic cys ts presenting to the ED with intractable nausea and vomiting as well as RU Q abdominal pain for the past 3 days. States that she called her GI doct or Dr. Winn and he told her to come into the ED. She [facility]/[address] Winn. [...] 05/25/20 193 -- 05/25/201944 pneumatic compression stockings (me,mo) VTE Prophylaxis: VTE prophylaxis appropriate GI Prophylaxis: Indicated due to chronic acid suppression th erapy as an outpatient Telemetry: no Disposition: Home Code Status: Not on file Plan of care discussed with: Provider, RN, Patient SIGNATURE: Vickie Srivastava MD PATIENT NAME: Sally shannon DATE: May 26, 2020 TIME: 1:53 PM hemogram on 2020-05 Erythrocyte distribution 13.3 11.7-14.4 % Normal 05-26 [place] [facility] width (RBC) [Ratio] System (59425) Comment: Performed By: #### CBC1 #### [address] [address] Hematocrit (Bld) [Volume 33.7 34.1-44.9 % Low 05-26 [place] [facility] fraction] System (00 000) Comment: Performed By: #### CBC1 #### [address] [address] Hemoglobin (Bld) [Mass/Vol] 10.8 11.2-15.7 g/dL Low [facility] (00 000) Comment: Performed By: #### CBC1 #### [facility] [address] [place], [place] [address] MCH (RBC) [Entitic mass] 29.3 25.6-32.2 pg Normal 05-26 [facility] (00 000) Comment: Performed By: #### CBC1 #### [facility] [address] [place], [place] [address] MCHC (RBC) [Mass/Vol] 32.0 31.6-34.8 % Normal 05-26-20 20 [facility] (53679) Comment: Performed By: #### CBC1 #### [facility] [address] [place], [place] [address] MCV (RBC) [Entitic vol] 91.3 79.4-94.8 fl Normal 2019 [facility] (00 000) Comment: Performed By: #### CBC1 #### [facility] [address] [place], [place] [address] Platelet mean volume (Bld) 10.8 9.4-12.[address] [facility] [Entitic vol] System (33186) Comment: Performed By: #### CBC1 #### [facility] [address] [place], [place] [address] Platelets (Bld) [#/Vol] 226 182-369 thou/cmm Normal 2019 [facility] (00 000) Comment: Performed By: #### CBC1 #### [facility] [address] [place], [place] [address] RBC (Bld) [#/Vol] 3.69 3.93-5.22 mil/cmm Low 05-26-2020 [facility] (54005) Comment: Performed By: #### CBC1 #### [facility] [address] [place], [place] [address] RDW SD 44.3 36.4-46.3 fl Normal 05-26-2020 [facility] (36684) Comment: Performed By: #### CBC1 #### [facility] [address] [place], [place] [address] WBC (Bld) [#/Vol] 9.78 3.98-10.04 thou/cmm Normal 05-26-2020 [facility] (00 000) Comment: Performed By: #### CBC1 #### [facility] [address] [place], [place] [address] coronavirus 2019 on 2020-05-26 COVID 19 Result APPOINTMENT SCHEDULER Negative CORNESonya Normal 05-26-2020 [facility] (53924) Comment: Result Comment: Negative for COVID19 (SARS CoV2) by PCR. This test was developed and its performance characteristics determined by [facility] Laboratory Medicine [place]. This test has bee n authorized by [...] issued on November 12, 2019. Performing Laboratory: [facility] [address] [place] [address] Performed By: #### CD19X ### # [address] [address] consult on CONSULT HNO ID: [id number] Normal 05-26-2020 [facility] Author: Joe Romero) [facility] Service: Gastroenterology ([id number]) Author Type: Physician Commercial Counsel Type: Consults Filed: 05/26/2020 11:22 AM Note [...] Benign liver cyst 05/24/2010 CT scan at [facility] 11/2009 and 04/2010 showe 4 mm increase in size . No pain. No elevated LFTs on 03/11/2010. - Calculus of kidney 05/17/[address] Nicolas: Hospitalized age 20, and again later -- no procedures so far ([facility], [facility], [place], 1995 [facility]) - Cancer (HCC) - Diverticulosis [...] removed - TOTAL ABDOM HYSTERECTOMY 08/31/06 Hysterectomy, [facility] FAMILY H[facility] Problem Relation Age of [...] Approx. 3 cigarettes daily-1 pack every w [place] Substance Use Topics - Alcohol use: Yes [...] (TYLENOL) 650 mg ORAL q 4 H AR N ALLERGIES Allergen Reactions - Penicillins Rash [...] 26, 2020 TIME: 11:10 AM PAGER/CONTACT #: [phone] After 3PM please use on-call paging system basic metabolic panel on 2020-05-26 Anion gap [Moles/Vol] 9 9-18 mmol/L Normal 05-26-20 20 [facility] (78956) Comment: Performed By: #### BMP #### [facility] [address] [place], [place] [address] Calcium [Mass/Vol] 9.0 8.5-10.2 mg/dL Normal 05-26-2020 [facility] (51412) Comment: Performed By: #### BMP #### [facility] [address] [place], [place] [address] Chloride [Moles/Vol] 104 97-105 mmol/L Normal 0 [facility] (33847) Comment: Performed By: #### BMP #### [facility] [address] [place], [place] [address] CO2 Blood 25 22-30 mmol/L Normal 05-26-2020 [facility] (77066) Comment: Performed By: #### BMP #### [facility] [address] [place], [place] [address] Creatinine [Mass/Vol] 0.86 0.58-0.96 mg/dL Normal 05-26-20 20 [facility] (00 000) Comment: Performed By: #### BMP #### [facility] [address] [place], [place] [address] Glucose [Mass/Vol] 87 74-99 mg/dL Normal 05-26-2020 [facility] (23728) Comment: Result Comment: The [place] Diabetes Association (ADA) provides guidance for cutoff [...] Standards of Medical Care in Diabetes 2016; [place] Diabetes Association. Diabetes Care. 2016;39(Suppl 1). Performed By: #### BMP #### [facility] [address] [place], [place] [address] Potassium [Moles/Vol] 3.5 3.7-5.1 mmol/L Low 05-26-20 20 [facility] (13657) Comment: Performed By: #### BMP #### [facility] [address] [place], [place] [address] Sodium [Moles/Vol] 138 136-144 mmol/L Normal 05-26-2020 [facility] (16677) Comment: Performed By: #### BMP #### [address] [address] Urea nitrogen [Mass/Vol] 9 7-21 mg/dL Normal 05-26 [facility] (92816) Comment: Performed By: #### BMP #### [address] [address] urine drug screen o n 2020-05-25 Urine Alcohol <11 0-11 Normal 05-25-2020 [facility] (76519) Comment: Performed By: #### UDRG3 ### # [address] [address] Urine Amphetamine NEGATIVE NEGATIVE Normal 05-25-2020 [facility] (18043) Comment: Performed By: #### UDRG3 ### # [address] [address] Urine Barbiturates NEGATIVE NEGATIVE Normal 05-25-2020 [facility] (63810) Comment: Performed By: #### UDRG3 ### # [address] [address] Urine Benzodiazepine NEGATIVE NEGATIVE Normal 0 [facility] (00 000) Comment: Performed By: #### UDRG3 ### # [address] [address] Urine Cocaine Metab NEGATIVE NEGATIVE Normal 05-25-2020 [facility] (01879) Comment: Performed By: #### UDRG3 ### # [address] [address] Urine Opiates see below NEGATIVE Abnormal 05-25-2020 [facility] (67146) Comment: Result Comment: PRESUMPTIVE POSITIVE Performed By: #### UDRG3 ### # [facility] [address] [place], [place] [address] Urine Oxycodone NEGATIVE NEGATIVE Normal 05-25-2020 [facility] (03782) Comment: Performed By: #### UDRG3 ### # [facility] [address] [place], [place] [address] Urine PCP NEGATIVE NEGATIVE Normal 05-25-2020 [facility] (79997) Comment: Result Comment: Test Cutoff Unit Amphetamines 1000 ng/mL Barbiturates 200 ng/mL Benzodiazepines 200 ng/mL Cannabinoids 50 ng/mL Cocaine 300 ng/mL Opiates 300 ng/mL Oxycodone 100 ng/mL Phencyclidine 25 ng/mL Reference Range: Negative at cutoff threshold Immunoassay screen only. Veterinary Surgeon ss reactivity with other substances can occur [...] the same specimen through the laboratory at ([phone]) if contact ed within 48 hours of initial 1. Substance Abuse and [facility] (2012). Clini sam Drug Testing in Primary Care Technical Assistance Publica tion Series 32. Department of Health and Human Services, U SA, p.10. Performed By: #### UDRG3 ### # [facility] [address] [place], [place] [address] Urine THC NEGATIVE NEGATIVE Normal 05-25-2020 [facility] (63428) Comment: Performed By: #### UDRG3 ### # [facility] [address] [place], [place] [address] urinalysis routine on 2020-05-25 RBC LM.HPF (Urine sed) 0.0-3 0.0-5.[address] [facility] [#/Area] System (00 000) Comment: Performed By: #### URIN2 ### # [facility] [address] [place], [place] [address] Bacteria LM.HPF (Urine sed) NONE None Normal [facility] [#/Area] (43134) Comment: Performed By: #### URIN2 ### # [facility] [address] [place], [place] [address] Ep Cells Urine 21.5 0.0-5.0 /hpf High 05-25-2020 [facility] (26809) Comment: Performed By: #### URIN2 ### # [facility] [address] [place], [place] [address] Hyaline Cast 0.0 0.0-1.0 /lpf Normal 05-25-2020 [facility] (68964) Comment: Performed By: #### URIN2 ### # [facility] [address] [place], [place] [address] WBC LM.HPF (Urine sed) 2.9 0.0-5.0 /hpf Normal 020 [facility] [#/Area] System (00 000) Comment: Performed By: #### URIN2 ### # [facility] [address] [place], [place] [address] Appearance (U) CLOUDY Normal 05-25-2020 [facility] (85047) Comment: Performed By: #### URIN2 ### # [facility] [address] [place], [place] [address] Bilirubin (U) NEGATIVE Negative mg/dL Normal 05-25-2020 [facility] [Mass/Vol] System (0 0000) Comment: Performed By: #### URIN2 ### # [facility] [address] [place], [place] [address] Color (U) YELLOW Normal 05-25-2020 [facility] (58263) Comment: Performed By: #### URIN2 ### # [facility] [address] [place], [place] [address] Glucose Ql (U) NEGATIVE Negative Normal 05-25-2020 [facility] (99240) Comment: Performed By: #### URIN2 ### # [facility] [address] [place], [place] [address] Hemoglobin,Urine NEGATIVE Negative Normal 05-25-2020 [facility] (62870) Comment: Performed By: #### URIN2 ### # [facility] [address] [place], [place] [address] Ketone Urine NEGATIVE Negative Normal 05-25-2020 [facility] (95923) Comment: Performed By: #### URIN2 ### # [facility] [address] [place], [place] [address] Leukocytes Esterase NEGATIVE Negative Normal 05-25-2020 [facility] (99073) Comment: Performed By: #### URIN2 ### # [facility] [address] [place], [place] [address] Nitrites Urine NEGATIVE Negative Normal 05-25-2020 [facility] (14814) Comment: Performed By: #### URIN2 ### # [address] [address] pH (U) 5.5 5.0-8.0 [pH] Normal 05-25-2020 [facility] (21665) Comment: Performed By: #### URIN2 ### # [facility] [address] [place], [place] [address] Protein (U) [Mass/Vol] NEGATIVE Negative mg/dL Normal 020 [facility] (00 000) Comment: Performed By: #### URIN2 ### # [facility] [address] [place], [place] [address] Specific Gideon, Ur 1.024 1.005-1.030 Normal 020 [facility] (00 000) Comment: Performed By: #### URIN2 ### # [facility] [address] [place], [place] [address] Urobilinogen,Ur 0.2 0.2-1.0 EU/dL Normal 05-25-2020 [facility] (63820) Comment: Performed By: #### URIN2 ### # [facility] [address] [place], [place] [address] nursing prog on 202 NURSING PROG HNO ID: [id number] Normal 05-25-20 [facility] Author: Eleanor (Rn) VIN Parrish [place] ([id number]) Service: ? Author Type: Registered Nurse Type: [...] Lipase Blood 25 16-61 U/L Normal 05-25-2020 [facility] (19159) Comment: Performed By: #### LIP #### [place] [address] hosp on 2020-05-25 HOSP Patient:Sally Mcgregor Normal 05-15 [place] MRN: General Height:5' 1(1.549 m) Medical Weight:200 lb 6.4 oz (90.901 kg) Center Outpatient Medications as of 05/28/20: (39076) hyoscyamine (LEVSIN) 0.125 mg tablet sucralfate (CARAFATE) [...] 32.2 % 05/28/2020 44.9 34.1 Progress Notes ([facility]): Pierce Barber Ma 05/25/2020 4:24 PM [...] since Thursday night. Patient was seen at [place] ED on Thursday night where she was given fluids, told her labs looked fine and was discharged home. Sameer cheney follows with Dr. Winn for GI as she has a 9 cm cyst in her liver and history of pancreatitis . Patient is scheduled for endoscopy and ultrasound on . She states that Dr. Winn told her to come to [facility] ED for specific type of [...] v Family history: of suicide, attempts, or [place] 1 psychiatri c disorders requiring hospitalization v Precipitants/Stressors/Interpersonal: triggering events le ading to humiliation, shame or despair (e.g; loss of relationship, fi nancial or Health status-real or antici pated). Ongoing medical illness (zohreh. BIOMASS FACILITATOR disorders, pain). Intoxication. Family turmoil/chaos. History of Physical or sexual abuse. Social isolation. v Change in treatment: discharge from psychiatric hospital, provider or treatment change v Access to firearms 2.??? PROTECTIVE FACTORS pro tective factors, even if present, may not counteract significant acute risk v Internal: ability to cope with stress, muslim beliefs, frustration tolerance v External: responsibility to [...] Benign liver cyst 05/24/2010 CT scan at [facility] 11/2009 and 04/2010 showe 4 mm increase in size . No pain. No elevated LFTs on 03/11/2010. - Calculus of kidney 05/17/[address] Nicolas: Hospitalized age 20, a nd again later -- no procedures so far ([facility], [place], [place] [facility]) - Cancer (HCC) - Diverticulosis [...] removed - TOTAL ABDOM HYSTERECTOMY 08/31/06 Hysterectomy, [facility] FAMILY HISTORY Problem Relation Age of [...] Approx. 3 cigarettes daily-1 pack every w [place] Substance and Sexual Activity - Alcohol use: [...] You may reach the House Medicine internal controls manager currently assigned to this patien t by finding their pager number on the treatment team (they will be assigned as the internal controls manager or resident). It is the last four digits in the phone num alyson beginning with ([phone]). We encourage the use of Contractually Secure Chat. PCP: Marcelino Mejia MD Admitting [...] Benign liver cyst 05/24/2010 CT scan at [facility] 11/2009 and 04/2010 showe 4 mm increase in size . No pain. No elevated LFTs on 03/11/2010. - Calculus of kidney 05/17/[address] Nicolas: Hospitalized age 20, a nd again later -- no procedures so far ([facility], [facility], [place], 1995 [facility]) - Cancer (HCC) - Diverticulosis [...] Approx. 3 cigarettes daily-1 pack every w [place] Substance Use Topics - Alcohol use: Yes [...] Benign liver cyst 05/24/2010 CT scan at [facility] 11/2009 and 04/2010 showe 4 mm increase in size . No pain. No elevated LFTs on 03/11/2010. - Calculus of kidney 05/17/[address] Nicolas: Hospitalized age 20, a nd again later -- no procedures so far ([facility], [place], [place] [facility]) - Cancer (HCC) - Diverticulosis [...] Approx. 3 cigarettes daily-1 pack every w [place] Substance Use Topics - Alcohol use: Yes [...] (TYLENOL) 650 mg ORAL q 4 H AR N ALLERGIES Allergen Reactions - Penicillins Rash [...] 26, 2020 TIME: 11:10 AM PAGER/CONTACT #: [phone] After 3PM please use on-call paging system Vickie Srivastava MD 05/26/2020 2:11 PM Attested Attestation signed by Oh Arreaga at 05/26/2020 2:23 PM Attending Note I personally saw and examined the patient on 05/26/20. I rev iewed the resident's note. I agree with the resident's assessment and plan unless otherwise noted. Signature: Oh Arreaga, DO Date: 05/26/2020 Time: 2:23 PM Pager: [phone] HOUSE MEDICINE SERVICE PROGRESS NOTE SERVICE DATE: May 26, 2020 SERVICE TIME: 1:53 PM NIGHT AND WEEKEND COVERAGE: From 6 AM to 5 PM: You may reach the House Medicine internal controls manager currently assigned to this patien t by finding their pager number on the treatment team (they will be assigned as the internal controls manager or resident). It is the last four digits in the phone num alyson beginning with ([phone]). We encourage the use of Contractually Secure Chat. SUBJECTIVE HPI: 39 year old [...] 05/25/20 193 -- 05/25/201944 pneumatic compression stockings (me,oh) VTE Prophylaxis: VTE prophylaxis appropriate GI Prophylaxis: [...] (TYLENOL) 650 mg ORAL q 4 H AR N - oxyCODONE IR 10 mg tab(s) (ROXICODONE) 10 mg ORAL q 6 H AR N Objective PHYSICAL EXAM: VITALS:BP 119/74 Pulse [...] 27, 2020 TIME: 1:15 PM PAGER/CONTACT #: Satellite Tv Installer Pager Vickie Srivastava MD 05/27/2020 4:19 PM [...] You may reach the House Medicine internal controls manager currently assigned to this patien t by finding their pager number on the treatment team (they will be assigned as the internal controls manager or resident). It is the last four digits in the phone num alyson beginning with ([phone]). We encourage the use of Contractually Secure Chat. SUBJECTIVE HPI: 39 year old [...] Note Patient Name: Sally Mcgregor Patient Location: [id number] Attempted to draw AM labs. Was unsuccessful x 2 attempts. This note was completed by: VIN Conley MD 05/28/2020 8:57 AM Incomplete HOUSE MEDICINE SERVICE PROGRESS NOTE SERVICE DATE: May 28, 2020 SERVICE TIME: 1:53 PM NIGHT AND WEEKEND COVERAGE: From 6 AM to 5 PM: You may reach the House Medicine internal controls manager currently assigned to this patien t by finding their pager number on the treatment team (they will be assigned as the internal controls manager or resident). It is the last four digits in the phone num alyson beginning with ([phone]). We encourage the use of Contractually Secure Chat. SUBJECTIVE HPI: 39 year old [...] delete will not show in completed note) :[id number] } Intractable nausea and vomiting Intractable nausea [...] delete will not show in completed note) :[id number] } Medication and Non-Pharmacologic VTE Prophylaxis/Anticoagula nts Anticoagulant AND Antiplatelet Medications (From admission, onward) Start Dose Route Frequency Ordered Stop 05/25/201999 enoxaparin 40 mg injection (LOVENOX) (Me dical Risk Categories) 40 mg SUBCUTANEOUS DAILY 05/25/201935 -- 05/25/201944 pneumatic compression stockings (me,oh) VTE Prophylaxis: VTE prophylaxis appropriate GI Prophylaxis: [...] mg x 3 Quetiapine 100 mg daily [place] prescription history Shows occasional use of opiates, [...] (ROXICODONE) 10 mg ORAL q 6 H AR N Maggi (Kiran) MD Mark 10 mg [...] Approx. 3 cigarettes daily-1 pack every w [place] Substance Use Topics - Alcohol use: Yes [...] Benign liver cyst 05/24/2010 CT scan at [facility] 11/2009 and 04/2010 showe 4 mm increase in size . No pain. No elevated LFTs on 03/11/2010. - Calculus of kidney 05/17/[address] Nicolas: Hospitalized age 20, a nd again later -- no procedures so far ([facility], [facility], [place], [facility]) - Cancer (HCC) - Diverticulosis [...] Approx. 3 cigarettes daily-1 pack every w [place] Substance Use Topics - Alcohol use: Yes [...] May 28, 2020 TIME: 12:15 PM CSN: [id number] history physical on 2020-05-25 HISTORY HNO ID: [id number] Normal 05-25-2020 [place] PHYSICAL Author: Maggi Flores MD General Service: Hospital Medicine Medical Author Type: Resident Center Type: [facility] ([id number]) Filed: 05/25/2020 5:42 PM Note Text: Attestation [...] You may reach the House Medicine internal controls manager currently assigned to this patient by findin g their pager number on the treatment team (they will be assigned as the i ntern or resident). It is the last four digits in the phone number be ginning with ([phone]). We encourage the use of Epic Secure [...] Benign liver cyst 05/24/2010 CT scan at [facility] 11/2009 and 04/2010 showe 4 mm increase in size . No pain. No elevated LFTs on 03/11/2010. - Calculus of kidney 05/17/[address] Nicolas: Hospitalized age 20, and again later -- no procedures so far ([facility], [place], [place] [facility]) - Cancer (HCC) - Diverticulosis [...] Approx. 3 cigarettes daily-1 pack every w [place] Substance Use Topics - Alcohol use: Yes [...] Immature Grans 0.09 0.00-0.05 thou/cmm High 05-25-2020 [facility] (00 000) Comment: Performed By: #### CBCD1 ### # [place] [address] Abs Neut (ANC) 3.14 1.56-6.13 thou/cmm Normal 05-25-2020 [facility] (00642) Comment: Performed By: #### CBCD1 ### # [facility] [address] [place], [place] [address] Abs. Baso 0.06 0.01-0.08 thou/cmm Normal 05-25-2020 [facility] (61495) Comment: Result Comment: Smear scanne d; tech agrees with automated differential Performed By: #### CBCD1 ### # [facility] [address] [place], [place] [address] Abs. [place] 0.50 0.27-0.70 thou/cmm Normal 05-25-2020 [facility] (38538) Comment: Performed By: #### CBCD1 ### # [facility] [address] [place], [place] [address] Basophils/100 WBC (Bld) 0.7 % Normal 2019 [facility] (44376) Comment: Performed By: #### CBCD1 ### # [facility] [address] [place], [place] [address] Eosinophils (Bld) 0.30 0.00-0.31 thou/cmm Normal 05-25-2020 [facility] [#/Vol] [facility] (95352) Comment: Performed By: #### CBCD1 ### # [facility] [address] [place], [place] [address] Eosinophils/100 WBC (Bld) 3.6 % Normal 05-15 [facility] (88014) Comment: Performed By: #### CBCD1 ### # [facility] [address] [place], [place] [address] Immature Grans 1.10 % Normal 05-25-2020 [facility] (15902) Comment: Performed By: #### CBCD1 ### # [facility] [address] [place], [place] [address] Lymphocytes (Bld) [#/Vol] 4.34 1.18-3.74 thou/cmm High 05-15 [facility] (00 000) Comment: Performed By: #### CBCD1 ### # [facility] [address] [place], [place] [address] Lymphocytes/100 WBC (Bld) 51.5 % Normal 05-15 [facility] (37071) Comment: Performed By: #### CBCD1 ### # [facility] [address] [place], [place] [address] Monocytes/100 WBC (Bld) 5.9 % Normal 2019 [facility] (72551) Comment: Performed By: #### CBCD1 ### # [facility] [address] [place], [place] [address] Seg Neutrophil 37.2 % Normal 05-25-2020 [facility] (97680) Comment: Performed By: #### CBCD1 ### # [facility] [address] [place], [place] [address] Erythrocyte distribution 13.7 11.7-14.4 % Normal 05-25 [facility] width (RBC) [Ratio] System (73985) Comment: Performed By: #### CBCD1 ### # [facility] [address] [place], [place] [address] Hematocrit (Bld) [Volume 39.7 34.1-44.9 % Normal 05-25 [facility] fraction] System (00 000) Comment: Performed By: #### CBCD1 ### # [facility] [address] [place], [place] [address] Hemoglobin (Bld) 12.1 11.2-15.7 g/dL Normal 05-25-2020 [facility] [Mass/Vol] System (0 0000) Comment: Performed By: #### CBCD1 ### # [facility] [address] [place], [place] [address] MCH (RBC) [Entitic mass] 28.2 25.6-32.2 pg Normal 05-25 [facility] (00 000) Comment: Performed By: #### CBCD1 ### # [facility] [address] [place], [place] [address] MCHC (RBC) [Mass/Vol] 30.5 31.6-34.8 % Low 05-25-20 20 [facility] (33619) Comment: Performed By: #### CBCD1 ### # [address] [address] MCV (RBC) [Entitic vol] 92.5 79.4-94.8 fl Normal 2019 [facility] (00 000) Comment: Performed By: #### CBCD1 ### # [facility] [address] [place], [place] [address] Platelet mean volume (Bld) 11.0 9.4-12.[address] [facility] [Entitic vol] System (27168) Comment: Performed By: #### CBCD1 ### # [facility] [address] [place], [place] [address] Platelets (Bld) [#/Vol] 254 182-369 thou/cmm Normal 2019 [facility] (00 000) Comment: Performed By: #### CBCD1 ### # [facility] [address] [place], [place] [address] RBC (Bld) [#/Vol] 4.29 3.93-5.22 mil/cmm Normal 05-25-2020 [facility] (00 000) Comment: Performed By: #### CBCD1 ### # [facility] [address] [place], [place] [address] RDW SD 46.5 36.4-46.3 fl High 05-25-2020 [facility] (83273) Comment: Performed By: #### CBCD1 ### # [facility] [address] [place], [place] [address] WBC (Bld) [#/Vol] 8.43 3.98-10.04 thou/cmm Normal 05-25-2020 [facility] (00 000) Comment: Performed By: #### CBCD1 ### # [facility] [address] [place], [place] [address] ed prov note on ED PROV NOTE HNO ID: [id number] Normal 05-25-20 [facility] Author: Johnnie Long MD Center ([id number]) Service: Emergency Medicine Author Type: Physician Type: [...] 05/26/20 0014 ED PROV NOTE HNO ID: [id number] Normal 05-25-20 [facility] Author: Johnnie Long MD [place] ([id number]) Service: Emergency Medicine Author Type: Physician Type: [...] back since night. Patient was seen at [place] ED on Thursday night where sh shiva was given fluids, told her labs looked fine and was discharged home. Skyler maciel follows with Dr. Winn for GI as she has a 9 cm cyst in her liver and history of pancreatitis. Patient is scheduled for endoscopy and ultrasound on Thursday. She states that Dr. Winn told her t o come to [facility] ED for specific type of imaging [...] v Family history: of suicide, attempts, or [place] 1 psychiatri c disorders requiring hospitalization v Precipitants/Stressors/Interpersonal: triggering events le ading to humiliation, shame or despair (e.g; loss of relationship, fi nancial or Health status-real or anticipated). Ongoing medical illness (zohreh. BIOMASS FACILITATOR disorders, pain). Intoxication. Family turmoil/chaos. Histor y of Physical or sexual abuse. Social isolation. v Change in treatment: discharge from psychiatric hospital, provider or treatment change v Access to firearms 2.??? PROTECTIVE FACTORS protective factors, even if present , may not counteract significant acute risk v Internal: ability to cope with stress, muslim beliefs, frustration tolerance v External: responsibility to [...] Benign liver cyst 05/24/2010 CT scan at [facility] 11/2009 and 04/2010 showe 4 mm increase in size . No pain. No elevated LFTs on 03/11/2010. - Calculus of kidney 05/17/[address] Nicolas: Hospitalized age 20, and again later -- no procedures so far ([facility] [place], [facility]) - Cancer (HCC) - Diverticulosis [...] Approx. 3 cigarettes daily-1 pack every w [place] Substance and Sexual Activity - Alcohol use: [...] ed note on ED NOTE HNO ID: [id number] Normal 05-25-2020 [facility] Author: Katharine Gonzalez RN [place] ([id number]) Service: Emergency Medicine Author Type: Registered Nurse Type: ED Notes Filed: 05/25/2020 6:31 PM Note Text: RN unavailable for report at 1830 ED NOTE HNO ID: [id number] Normal 05-25-2020 [facility] Author: Katharine Gonzalez RN [place] ([id number]) Service: Emergency Medicine Author Type: Registered Nurse Type: ED Notes Filed: 05/25/2020 5:58 PM Note Text: Dr. Mukherjee notified pt asking for something for pain. ED NOTE HNO ID: [id number] Normal 05-25-2020 [facility] Author: Katharine Gonzalez RN [place] ([id number]) Service: Emergency Medicine Author Type: Registered Nurse Type: ED Notes Filed: 05/25/2020 4:00 PM Note Text: Covid swab obtained and sent. ED NOTE HNO ID: [id number] Normal 05-25-2020 [facility] Author: Katharine Gonzalez RN [place] ([id number]) Service: Emergency Medicine Author Type: Registered Nurse Type: ED Notes Filed: 05/25/2020 3:08 PM Note Text: Pt to CT by cart. ED NOTE HNO ID: [id number] Normal 05-25-2020 [facility] Author: Katharine Gonzalez RN [place] ([id number]) Service: Emergency Medicine Author Type: Registered Nurse Type: ED Notes Filed: 05/25/2020 11:55 AM Note Text: Pt complains of heat flash Temperature adjusted. Resp unla bored. ED NOTE HNO ID: [id number] Normal 05-25-2020 [facility] Author: Katharine Gonzalez RN [place] ([id number]) Service: Emergency Medicine Author Type: Registered Nurse Type: ED Notes Filed: 05/25/2020 10:42 AM Note Text: Pt complains of itching after Dilaudid. No hives or SOB note dAzul Pierre notified and no orders received. Pt given ice. ED NOTE HNO ID: [id number] Normal 05-25-2020 [facility] Author: Katharine Gonzalez RN [place] ([id number]) Service: Emergency Medicine Author Type: Registered Nurse Type: ED Notes Filed: 05/25/2020 7:15 AM Note Text: Dr. Miranda notified pt needs SAFE-T form completed. ct abd/pel w ivcon on 2020-05-25 CT ABD/PEL W Final Report Normal 05-25-2020 [place] [facility] IVCON DATE OF EXAM: May 25 2020 3:15PM [facility] 0530 - CT ABD/PEL W IVCON / ([id number]) PROCEDURE REASON: Nausea, vomiting Physician Interpretation EXAMINATION: [...] obe suggestive of small areas of atelectasis. Cloth Mender (topogram) images: IMPRESSION: 1. No acute intra-abdominal/pelvic abnormalities are identif ied. 2. Bilateral nephrolithiasis. No hydronephrosis is identifie d. 3. Multiple hepatic cysts measuring up to 9.5 cm. 4. Findings consistent with fatty infiltration of liver. Bottle Label Inspector: PSCAudrey Transcribe Date/Time: May 25 2020 3:16P Dictated by : ALICE ALCARAZ MD This examination was interpreted and the report reviewed and electronically signed by: ALICE ALCARAZ MD on May 25 2020 3:27PM EST comprehensive metabolic panel on 2020-05-25 Albumin [Mass/Vol] 4.8 3.9-4.9 g/dL Normal 05-25-2020 [facility] (52404) Comment: Performed By: #### CMP #### [facility] [address] [place], [place] [address] ALP [Catalytic activity/Vol] 98 34-123 U/L Normal 0 05-25-2020 [facility] (00 000) Comment: Performed By: #### CMP #### [facility] [address] [place], [place] [address] ALT [Catalytic activity/Vol] 12 7-38 U/L Normal 0 05-25-2020 [facility] (00 000) Comment: Performed By: #### CMP #### [facility] [address] [place], [place] [address] Anion gap [Moles/Vol] 11 9-18 mmol/L Normal 05-25-20 [facility] (47594) Comment: Performed By: #### CMP #### [facility] [address] [place], [place] [address] AST [Catalytic activity/Vol] 14 13-35 U/L Normal 0 05-25-2020 [facility] (00 000) Comment: Performed By: #### CMP #### [facility] [address] [place], [place] [address] Bilirubin [Mass/Vol] 0.4 0.2-1.3 mg/dL Normal 0 [facility] (21011) Comment: Performed By: #### CMP #### [facility] [address] [place], [place] [address] Calcium [Mass/Vol] 9.7 8.5-10.2 mg/dL Normal 05-25-2020 [facility] (65854) Comment: Performed By: #### CMP #### [facility] [address] [place], [place] [address] Chloride [Moles/Vol] 104 97-105 mmol/L Normal 0 [facility] (34195) Comment: Performed By: #### CMP #### [facility] [address] [place], [place] [address] CO2 Blood 24 22-30 mmol/L Normal 05-25-2020 [facility] (97839) Comment: Performed By: #### CMP #### [facility] [address] [place], [place] [address] Creatinine [Mass/Vol] 0.95 0.58-0.96 mg/dL Normal 05-25-20 [facility] (00 000) Comment: Performed By: #### CMP #### [facility] [address] [place], [place] [address] Glucose [Mass/Vol] 95 74-99 mg/dL Normal 05-25-2020 [facility] (04437) Comment: Result Comment: The [place] [employer] (ADA) provides guidance for cutoff [...] Standards of Medical Care in Diabetes 2016; [place] Diabetes Association. Diabetes Care. 2016;39(Suppl 1). Performed By: #### CMP #### [facility] [address] [place], [place] [address] Potassium [Moles/Vol] 3.6 3.7-5.1 mmol/L Low 05-25-20 [facility] ([id number]) Comment: Performed By: #### CMP #### [facility] [address] [place], [place] [address] Protein [Mass/Vol] 8.0 6.3-8.0 g/dL Normal 05-25-2020 [facility] (40221) Comment: Performed By: #### CMP #### [facility] [address] [place], [place] [address] Sodium [Moles/Vol] 139 136-144 mmol/L Normal 05-25-2020 [facility] (74573) Comment: Performed By: #### CMP #### [facility] [address] [place], [place] [address] Urea nitrogen [Mass/Vol] 11 7-21 mg/dL Normal 05-25 [facility] (98923) Comment: Performed By: #### CMP #### [facility] [address] [place], [place] [address] cnpn on 2020-05-25 CNPN Telephone (GSTNOR) Normal 05-25-[address] [place] [facility] SALLY MCGREGOR ([id number]) 1980 [facility] Time Provider Department ([id number]) 05/25/20 JOHNNY WINN GSTNOR During your visit [...] 05/25/20 progress on 2020-05 PROGRESS HNO ID: [id number] Normal 05-24-2020 [facility] Author: Johnny Winn [place] ([id number]) Service: ? Author Type: Physician Type: Progress [...] virtual telemedicine Visit was substituted for a [facility] and homeo -required in-person visit because of the recent [...] go to the ED. Patient went to [place] ED and mentions 'nothing was done. T [...] Benign liver cyst 05/24/2010 CT scan at [facility] 11/2009 and 04/2010 showe 4 mm increase in size . No pain. No elevated LFTs on 03/11/2010. - Calculus of kidney 05/17/[address] Nicolas: Hospitalized age 20, and again later -- no procedures so far ([facility], [facility], 1995 [facility]) - Cancer (HCC) - Diverticulosis [...] Approx. 3 cigarettes daily-1 pack every w [place] Substance Use Topics - Alcohol use: Yes [...] the ED yesterday - she went to [place] ED and was told that pancreas levels [...] for nausea. Advised to go to the [facility] ED if no improvement in s ymptoms. During this patient visit I have spent approximately 15 luna los in counseling regarding interpretation, education and coordinat ion of care. Johnny Winn MD 3:22 PM progress on 2020-05 PROGRESS HNO ID: [id number] Normal 05-23-2020 [facility] Author: Johnny Winn [place] ([id number]) Service: Gastroenterology Author Type: Physician Type: Progress Notes Filed: 05/24/2020 8:09 AM Note Text: Returned patient?s call. She reported worsening RUQ pain ass ociated with nausea vomiting diarrhea and bloating. Denied any fever/chil ls, cough. Advised her to go to the ED to r/o pancreatitis, complicatio n in the large liver cysts. She voiced understanding. Johnny Winn MD [facility] on 2020-05-18 CNPN Telephone (FAMPWS) Normal 05-18-[address] [place] [facility] SALLY MCGREGOR ([id number]) 1980 [facility] Date Time Provider Department ([id number]) 05/18/20 [facility]INO [facility] During your visit today, we recorded [...] uns pecified laterality [M25.519] Order(s):CONSULT TO ORTHOPAEDICS [9075] Order #: [id number] ty: 1 FUTURE Prescriptions as of 05/18/2020 [...] * * *Final Report* * * Normal [facility] AP/ZENOBIA AP/OTHR DATE OF EXAM: May 17 2020 12:16PM [place] ([id number]) RT WOX 5253 - XR SHLDR >/=3V AP/ZENOBIA AP/OTHR RT / [id number] PROCEDURE REASON: Acute pain of right shoulder [...] abnormalities identified i n the right shoulder. Bottle Label Inspector: HERMINIO Transcribe Date/Time: May 17 2020 12:18P Dictated by : KORI BLANKENSHIP MD This examination was interpreted and the report reviewed and electronically signed by: KORI BLANKENSHIP MD on May 17 2020 12:20PM EST [id number] progress on 2020-05 PROGRESS HNO ID: [id number] Normal 05-17-2020 [facility] Author: Kylee PickardRtVianey Lea Mata ([id number]) Service: ? Author Type: Staffing Operations Manager Type: Progress Notes Filed: 05/17/2020 12:17 PM [...] 17, 2020 12:08 PM PROGRESS HNO ID: [id number] Normal 05-17-2020 [facility] Author: Kenia Mary) Bartolo Mata ([id number]) Service: ? Author Type: Nurse Practitioner Type: Progress Notes Filed: 05/17/2020 12:45 PM Note Text: Visit Date: May 17, 2020 Patient Name: Ms.Nichole Jeana Mcgregor Date of : 1980 MRN/E #: [id number] Chief Complaint Patient presents with: right shoulder [...] Benign liver cyst 05/24/2010 CT scan at [facility] 11/2009 and 04/2010 showe 4 mm increase in size . No pain. No elevated LFTs on 03/11/2010. - Calculus of kidney 05/17/[address] Nicolas: Hospitalized age 20, and again later -- no procedures so far ([facility], [facility], 1995 [facility]) - Dysmenorrhea - History of [...] Approx. 3 cigarettes daily-1 pack every w [place] Substance Use Topics - Alcohol use: Yes [...] 2020-05-17 CNOV Office Visit (UCWSTR) Normal 05-17-[address] [place] [address] [facility] SALLY MCGREGOR ([id number]) 1980 [facility] Time Provider Department ([id number]) 05/17/20 11:45 AM KENIA MCFARLAND (JAKI) [facility] During your visit today, we recorded the following informati on about you: Temperature Pulse Respiration Blood pressure 97.8 degrees 86/minute 16/minute 124/82 Weight 89.9 kg Kenia Mcfarland APRN.CNP 05/17/2020 12:45 PM Signed Visit Date: May 17, 2020 Patient Name: Ms.Nichole Jeana Mcgregor Date of : 1980 MRN/E #: [id number] Chief Complaint Patient presents with: right shoulder pain: fell in shoulder yesterday History of present illness Sally cMgregor is a 39 year old female. Reports [...] Benign liver cyst 05/24/2010 CT scan at [facility] 11/2009 and 04/2010 showe 4 mm increase in size . No pain. No elevated LFTs on 03/11/2010. - Calculus of kidney 05/17/[address] Nicolas: Hospitalized age 20, a nd again later -- no procedures so far ([facility], [facility], [facility]) - Dysmenorrhea - History of [...] removed - TOTAL ABDOM HYSTERECTOMY 08/31/06 Hysterectomy, [facility] Social History Tobacco Use - Smoking status: Former Smoker Packs/day: 0.50 Years: 3.00 Pack years: 1.50 Types: Cigarettes Quit date: 01/12/2017 Years since quittin.3 - Smokeless tobacco: Never Used - Tobacco comment: Approx. 3 cigarettes daily-1 pack every w [place] Substance Use Topics - Alcohol use: Yes [...] mean Date Reviewed: 05/17/2020 Reviewed by: Kenia PickardMarketing Senior Recruiter) Workman - Fully Assessed Reason for Visit: right shoulder pain [Other] Cmt: fell in shoulder yesterday Primary Visit Diagnosis:Acute pain of right shoulder [M25.51 1] Order(s):XR SHOULDER GENERAL 3V OR MORE AP/TRUE AP/OTHER RT [[id number]] Order #: [id number]. #:[id number] Prescriptions as of 05/17/2020 Sig: PANTOPRAZOLE 40 [...] on 05/17/20 No panel information on 2020-05-17 [facility] ([id number]) cnpn on 2020-05-11 CNPN Telephone (GSTNOR) Normal 05-11-[address] [place] [facility] SALLY MCGREGOR ([id number]) 1980 F [place] Date Time Provider Department ([id number]) 05/11/20 JOHNYN WINN GSTNOR During your visit today, we [...] on 2020-05-11 CNCO Letter Text Normal 05-11-2020 [facility] ([id number]) progress on 2020-04 PROGRESS HNO ID: [id number] Normal 05-10-2020 [facility] Author: Johnny Winn [place] ([id number]) Service: ? Author Type: Physician Type: Progress [...] pathology on 2020-05-08 SURGICAL Specimen originated from [facility] Normal 05-08-2020 [place] PATHOLOGY Specimen #: [id number] Clinic Submitting Physician: JOHNNY WINN MD [place] ([id number]) FINAL DIAGNOSIS 1. Random colon, biopsy (A) [...] in one cassette. Gross examination performed at [facility], [address] [place] [address] [place] 05/08/2020 11:06:23 PM B. Received in [...] in one cassette. Gross examination performed at [facility], [address] [place] [address] JT 05/08/2020 11:23:05 PM Date of Report: 05/11/2020 Date of Procedure: 05/08/2020 Date of Receipt: 05/08/2020 Submitted by: JOHNNY WINN MD Location: [facility] Diagnostic interpretation performed at [facility], [address] [place] [address]. CLIA Number: [id number] pt ed on 2020-05-08 PT ED HNO ID: [id number] Normal 05-08-2020 [facility] Author: Penny Benedict RN [place] ([id number]) Service: ? Author Type: Registered Nurse Type: [...] REFERRAL (RECOMMENDATION): None Electronically Signed By: Penny Beendict RN history physical on 2020-05-08 HISTORY HNO ID: [id number] Normal 05-08-2020 [place] [facility] Author: Johnny Winn [facility] Service: Gastroenterology [place] Author Type: Physician ([id number]) Type: HANDP Filed: 05/08/2020 12:46 PM Note [...] pre-op on 2019 ANES PRE-OP HNO ID: [id number] Normal 0 [facility] Author: Tania Mata ([id number]) Service: ? Author Type: Nurse Warehouse Stock Clerk Type: Anesthesia Preprocedure Evaluation Filed: 05/08/2020 12:36 [...] May 08, 2020 TIME: 12:26 PM CSN: [id number] anes postproc eval on 2020-05-08 ANES POSTPROC EVAL HNO ID: [id number] Normal [facility] Author: Tania Mata ([id number]) Service: ? Author Type: Nurse Warehouse Stock Clerk Type: Anesthesia Postprocedure Evaluation Filed: 05/08/2020 1:36 [...] May 08, 2020 TIME: 1:36 PM CSN: [id number] No panel information on 2020-05-08 Crystal Attacher Parke Gastroenterology [facility] Gastrointestinal Endoscopy ([id number]) Patient Name: Sally Mcgregor Procedure Date: 05/08/2020 [...] Recommendation: - Patient has a contact number [facility] for emergencies. The signs and symptoms [...] Estimated Blood Loss: Estimated blood loss: none. Crystal Attacher Parke Gastroenterology [facility] Gastrointestinal Endoscopy ([id number]) Patient Name: Sally Mcgregor Procedure Date: 05/08/2020 [...] on 2020-05-07 CNPN Telephone (GSTNOR) Normal 05-07-2020 [place] [facility] SALLY MCGREGOR ([id number]) 1980 F [facility] Time Provider Department (35189) 05/07/20 JOHNNY WINN GSTNOR During your visit [...] not draw the celiac panel. Pierce Barber BOX OFFICE AGENT Allergies As of Date: 05/07/2020 Noted Allergy [...] on 2020-05-01 CNPN Telephone (GSTNOR) Normal 05-01-[address] [place] [facility] SALLY MCGREGOR ([id number]) 1980 F [place] Date Time Provider Department (84532) 05/01/20 JOHNNY WINN GSTNOR During your visit [...] elier was not drawn, left message with [facility] to contact patient for redraw Pierce [...] * * *Final Report* * * Normal [facility] - DATE OF EXAM: Apr 30 2020 4:13PM [place] ([id number]) [facility] 1232 - US ABD SPLEEN -NB [...] cyst, enlarged compared to p rior study. Bottle Label Inspector: HERMINIO Transcribe Date/Time: Apr 30 2020 4:19P Dictated by : KORI BLANKENSHIP MD This examination was interpreted and the report reviewed and electronically signed by: KORI BLANKENSHIP MD on Apr 30 2020 4:27PM EST [id number] us abd right upper quadrant on 2020-04-30 US ABD RIGHT * * *Final Report* * * Normal 04-14 [facility] UPPER QUADRANT DATE OF EXAM: Apr 30 2020 4:13PM [place] ([id number]) [facility] 1032 - US ABD RIGHT UPPER [...] cyst, enlarged compared to p rior study. Bottle Label Inspector: PSYCHIATRIC Transcribe Date/Time: Apr 30 2020 4:19P Dictated by : KORI BLANKENSHIP MD This examination was interpreted and the report reviewed and electronically signed by: KORI BLANKENSHIP MD on Apr 30 2020 4:27PM EST [id number] progress on 2020-04 PROGRESS HNO ID: [id number] Normal 04-30-2020 [facility] Author: Vianey Ramos (Tech) [place] ([id number]) Service: ? Author Type: Staffing Operations Manager Type: Progress Notes Filed: 04/30/2020 4:14 PM [...] 2020-04 OBSOLETE Refill (FAMPWS) Normal 04-30-[address] [facility] SALLY MCGREGOR ([id number]) 1980 [facility] Time Provider Department (79436) 04/30/20 MARCELINO MEJIA FAMPWS During your visit [...] 04/30/20 igg subclasses+total on 2020-04-30 IgG [Mass/Vol] 5728 290-4002 mg/dL Normal 04-30-2020 [facility] ([id number]) Comment: Performed By: #### IGGSUB ## ##[address] [id number]- [phone] IgG Subclass 1 757.6 382.4-928.6 mg/dL Normal 04-30-2020 [facility] (54733) Comment: Performed By: #### IGGSUB ## ##[address] [id number]- [phone] IgG Subclass 2 398.2 241.8-700.3 mg/dL Normal 04-30-2020 [facility] (03098) Comment: Performed By: #### IGGSUB ## ##[address] [id number]- [phone] IgG Subclass 3 42.7 21.8-176.1 mg/dL Normal 04-30-2020 [facility] (01793) Comment: Performed By: #### IGGSUB ## ##[address] [id number]- [phone] IgG Subclass 4 39.7 3.9-86.4 mg/dL Normal 04-30-2020 [facility] (78949) Comment: Performed By: #### IGGSUB ## ##[facility] [place] [address] [id number] [phone] cnpn on 2020-04-30 CNPN Telephone (GSTNOR) Normal 04-30-2020 [place] [facility] SALLY MCGREGOR ([id number]) 1980 [facility] Date Time Provider Department (07491) 04/30/20 JOHNNY WINN GSTNOHerman During your visit [...] on 04/30/20 No panel information on 2020-04-30 [facility] ([id number]) cnpn on 2020-04-27 [facility]) Normal 04-27-[address] [place] [facility] TOSHIASALLY TORRES ([id number]) 1980 [facility] Date Time Provider Department (54704) 04/27/20 MARCELINO MEJIA During your visit today, we recorded the following informati on about you: Christopher Carcamo RN 04/27/2020 9:04 AM Signed Patient asking if pcp would send Rx for phenergan to [facility]. Reports she's had nausea for weeks. [...] 04/27/20 progress on 2020-04 PROGRESS HNO ID: [id number] Normal 04-26-2020 [facility] Author: Johnny Winn [place] ([id number]) Service: ? Author Type: Physician Type: Progress [...] note she presented to the ED in [place] in January 2020 for a bdominal pain of [address] abdomen was essentially unremarkable i ncluding pancreas. Was found to have lipase of 193 on 02/15/2020. Amylase normal. Hepatic function panel. Has h/o cholecystectomy in 1998. Denies NSAIDs. Smoking - quit 3 months ago. 1 pack/day X 15 years. Etoh - denies. Drugs - denies. Record Review: [facility] reviewed PAST MEDICAL HISTORY Diagnosis Date - Allergic rhinitis, cause unspecified 05/17/2008 Spring and summer - Benign liver cyst 05/24/2010 CT scan at [facility] 11/2009 and 04/2010 showe 4 mm increase in size . No pain. No elevated LFTs on 03/11/2010. - Calculus of kidney 05/17/[address] Nicolas: Hospitalized age 20, and again later -- no procedures so far ([facility], [facility], [facility]) - Dysmenorrhea - History of [...] removed - TOTAL ABDOM HYSTERECTOMY 08/31/06 Hysterectomy, [facility] Allergies: ALLERGIES Allergen Reactions - Penicillins [...] Approx. 3 cigarettes daily-1 pack every w [place] Substance Use Topics - Alcohol use: Yes [...] CNOV Office Visit (GSTNOR) Normal 04-26- 20 [place] [facility] SALLY MCGREGOR ([id number]) 1980 F [place] Date Time Provider Department ([id number]) 04/26/20 3:00 PM JOHNNY WINN During your [...] Benign liver cyst 05/24/2010 CT scan at [facility] 11/2009 and 04/2010 showe 4 mm increase in size . No pain. No elevated LFTs on 03/11/2010. - Calculus of kidney 05/17/[address] Nicolas: Hospitalized age 20, a nd again later -- no procedures so far ([facility], [facility], [facility]) - Dysmenorrhea - History of [...] removed - TOTAL ABDOM HYSTERECTOMY 08/31/06 Hysterectomy, [facility] Allergies: ALLERGIES Allergen Reactions - Penicillins [...] Approx. 3 cigarettes daily-1 pack every w [place] Substance Use Topics - Alcohol use: Yes [...] If you do not have a responsible water taxi driver (family member or friend) with you [...] the prescription bowel preparation solution at your [facility] or drugstore pharmacy. 08/2019 Bowel [...] or limit intake. Referring Provider: MARCELINO MEJIA [[id number]] Allergies As of Date: 04/26/2020 Noted Allergy [...] doctor.Disp: 1 BottleRfl : 0 INSERT IV ([place]) [8011414] Order #: [id number]: [id number] FUTURE IV DISCONTINUE [5205359] Order #: [id number]: 1 FUTURE INSERT IV ([place]) [0337988] Order #: [id number]: 1 EGD [8865539] Order #: [id number] FUTURE COLONOSCOPY - DIAGNOSTIC [4769484] Order #: [id number] FUTUR E CELIAC DISEASE PANEL [7641265] Order #: [id number] FUTURE IGG SUBCLASSES BLD [SQIGGSUB] Order #: [id number] FUTURE US ABD RT UPPER QUADRANT [7559008] Order #: [id number] FUTUR E metroNIDAZOLE (FLAGYL) 500 mg tabletTake [...] AND PRE-OPERATIVE COVID [SQPOCOVD] Order #: [id number] FUTURE Prescriptions as of 04/26/2020 Sig: DIPHENHYDRAMINE [...] take a taxi or bus, or leave [facility] ALONE. If you do not have a responsible water taxi driver (famil y member or friend) with [...] the prescription bowel preparation solution at your [facility] pharmacy or drugstore pharmacy. 08/2019 Bowel [...] on 2020-04-26 CNCO Letter Text Normal 04-26-2020 [facility] ([id number]) cnpn on 2020-04-19 CNPN Telephone (FAMPWS) Normal 04-19-[address] [place] [facility] SALLY MCGREGOR ([id number]) 1980 [facility] Date Time Provider Department (88240) 04/19/20 [facility] During your visit today, we recorded the following informati on about you: Christopher Carcamo RN 04/19/2020 10:49 AM Signed Faxed GI referral and demographics to [facility], per patient request. . Allergies As [...] Assessed Reason for Visit: Faxed to [facility] [Other] Prescriptions as of 04/19/2020 Sig: [...] on 2020-04-18 CNPN Telephone (FAMPWS) Normal 04-18-[address] [place] [facility] SALLY MCGREGOR ([id number]) 1980 [facility] Date Time Provider Department ([id number]) 04/18/20 [facility] During your visit today, we recorded the following informati on about you: Yvette Huffman RN 04/18/2020 2:01 PM Signed Pt called, verified by name and birthdate. Pt wants to know if she can see a GI doctor. Reviewed pt's chart and she has a GI con sult with GI group in [place]. Pt verbalized understanding, states she will call to make ap t Yvette Huffman RN Allergies As of Date: 04/18/2020 Noted Allergy Reaction PENICILLINS 12/07/2009 2 - Rash ASA (SALICYLATES) 01/27/2011 14 - Other: See Comments Comments: ulcers CONTRAST DYE (IODINE) 05/17/2008 12 - Shortness of Breath FLAGYL (METRONIDAZOLE HCL) 03/11/2010 12 - Shortness of [place] th IBUPROFEN 06/18/2016 8 - GI Upset PREDNISONE 06/18/2016 14 - Other: See Comments Comments: makes agitated and mean Date Reviewed: 02/23/2020 Reviewed by: Marcelino Mejia - Fully Assessed Reason for Visit: Patient Question [1697] Prescriptions as of 04/18/2020 Sig: TOPIRAMATE 50 [...] on 2020-04-16 CNPN Telephone (FAMSkylerWS) Normal 04-16-[address] [place] [facility] SALLY MCGREGOR ([id number]) 1980 [facility] Date Time Provider Department ([id number]) 04/16/20 [facility] During your visit today, we recorded the following informati on about you: Edwina Tatum EMISSIONS INSPECTOR 04/16/2020 11:38 AM Signed Pt calls to report she went to [facility] ER 04/12. Pt reports she [...] (METRONIDAZOLE HCL) 03/11/2010 12 - Shortness of [place] IBUPROFEN 06/18/2016 8 - GI Upset [...] on 2020-03-29 CNPN Telephone (FAMPWS) Normal 03-29-[address] [place] [facility] SALLY MCGREGOR ([id number]) 1980 [facility] Date Time Provider Department (68822) 03/29/20 [facility] During your visit today, we recorded the following informati on about you: Melanie Debby HERNANDEZ 03/29/2020 10:06 AM Signed Patient calling crying constantly, so congested from a ll the crying, can not get appt with [facility] will not take her insurance. [facility] will not take any new patients [...] AM Signed 1. Can we confirm that [place] neuro at [facility] doesn't take her insurance. If they don't take her insurance then we ca n see if can get her in with Dr. Church since he is back in [facility] now. 2. Find out how long [...] she said to ask for prescription for [facility] le relaxer or ibuprofen (she said, in below message she can't take ibuprof en). TC to [facility] and had to leave message for them to return call regarding if they accept patient's insurance. Instructed the m to give patient's name when they return the call so we can document. Lorenzo Vu 03/29/2020 12:49 PM Signed Giulia / [facility] returned call stating the y do not take [place]; provider is not credentialed with them yet. [...] muscle relaxer for her migraines. Pharmacy is [facility]. Please review and advise. VIN Solis [...] (METRONIDAZOLE HCL) 03/11/2010 12 - Shortness of Wis[place] th IBUPROFEN 06/18/2016 8 - GI Upset [...] 2020-03-28 CNPN Telephone (FAMWS) Normal 03-28-[address] [place] [facility] SALLY MCGREGOR ([id number]) 1980 [facility] Date Time Provider Department (07246) 03/28/20 MARCELINO MEJIA During your visit today, we recorded the following informati on about you: Christopher Caracmo RN 03/28/2020 6:01 PM Signed Patient reports [...] OBSOLETE Refill (FAMPWS) Normal 03-27-[address] [facility] SALLY MCGREGOR ([id number]) 1980 [facility] Date Time Provider Department (59874) 03/27/20 MARCELINO MEJIA FAMPWS During your visit [...] on 2020-03-27 CNPN Telephone (FAMPWS) Normal 03-27-2020 [place] [facility] SALLY MCGREGOR ([id number]) 1980 [place] Date Time Provider Department (99337) 03/27/20 MARCELINO MEJIA During your visit today, we recorded the following informati on about you: Yvette Huffman RN 03/27/2020 10:59 AM Signed Pt called, verified by name and birthdate. Pt states s he went to [facility] ER last night for a migraine and had a CT scan. Pt wants PCP to review ER records. Pt wants referral to neurology. Order pended. When signed pleas e fax to [facility] at [facility] per pt request Yvette Murphy Ma 03/27/2020 12:20 PM Signed ER reports on PCP's desk to review. Jessica Zhou, RN, RN 03/27/2020 1:37 PM Signed Pt calls, asking what the diagnosis was on the ER note. Pt states she was told air bubble, tumor States Imitrex is not working. Has already taken 2 today. Wa iting on [facility] to call her back Pt asking [...] referral placed and can be faxed to [facility]. Let patient know th e [...] referred to. See needs to contact her home care music therapist to get the help see nee ds as instructed on 03/22/2020, otherwise our hands are tied. Jessica Murphy Ma 03/27/2020 2:29 PM Signed Pt notified and voiced understanding. Referral and Dem o faxed to [facility]. Jessica Murphy Ma Allergies As of Date: [...] [G43.009] Order(s):CONSULT TO NEUROLOGY [9019] Order #: [id number]: 1 FUTURE Prescriptions as of 03/27/2020 Sig: [...] 03/27/20 progress on 2020-03 PROGRESS HNO ID: [id number] Normal 03-22-2020 [facility] Author: Isabel ([place]) Hugo Mata ([id number]) Service: ? Author Type: Physician Commercial Counsel Type: Progress Notes Filed: 03/22/2020 9:50 AM Note Text: DISTANCE HEALTH VISIT This Team Access Model visit is a phone encounter. It requir ed patient-provider interaction for the medical decision making as documented below. No video was used for evaluation of this patient. Patient consents to visit. Patient location: [place] Sally Mcgregor is a 39 year old female seen for headaches a nd pain. Patient states she has had to cancel with pain management 5 different times so now they won't reschedule her. She continues to have migraines/headaches. Only taking topam ax once a day. Couldn't do MRI or US due to rides. States she couldn't go to [place] for her cardiac testing but continues to [...] 11-20 minutes cnpn on 2020-03-22 [facility] Tele[facility] Normal 03-22-[address] [place] [facility] TOSHIASALLY TORRES ([id number]) 1980 [facility] Date Time Provider Department ([id number]) 03/22/20 ISABEL ARIAS) RAMA During your visit today, we recorded the following informati on about you: ISABEL ARIAS PA-C 03/22/2020 9:43 AM Signed Please let patient know that this is info I have received from in regards to rides: The last I knew, most of them were back up and running. I do know that [facility] has been continuing with their ride assistance and are taking people to their appts. I would sa y they need to check now with insurance to see if able to set up ride. The patient could also see if they can request a home care music therapist through their Medicaid Managed Care p maria esther. I have patients that have Medicaid plan and their care managers a re able to assist them setting up services. Having a home care music therapist through insu eve is great because they [...] again. I advised her that she contact [place] and request more help from her home care music therapist. Allergies As of Date: 03/22/2020 Noted Allergy [...] Encounter Status:Closed by ISABEL WARE on 03/22/20 [facility] Normal 03-08-2020 [place] SALLY Martinez ([id number]) 1980 [facility] Date Time Provider Department ([id number]) 03/08/20 [facility] During your visit today, we recorded [...] transfer to scheduling and while waiting for medical scheduler which was awhile, pt dropped call. [...] (METRONIDAZOLE HCL) 03/11/2010 12 - Shortness of Wisner th IBUPROFEN 06/18/2016 8 - GI Upset [...] on 2020-03-05 CNPN Telephone (FAMWS) Normal 03-05-[address] [place] [facility] BENJIShivaSALLY ([id number]) 1980 [place] Date Time Provider Department ([id number]) 03/05/20 [facility] During your visit today, we recorded the following informati on about you: Sallie Benitez EMISSIONS INSPECTOR 03/05/2020 1:58 PM Signed Patient is scheduling [...] on 03/06/20 CNPN Telephone (FAMPWS) Normal 03-05-[address] [place] 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 vic stated she is to see Dr. Joseph here in [facility] for Pain Management. Verified that we have [facility] and MRI schedul ed here on 03/19. -Marry Xavi Pss Allergies As of Date: 03/05/2020 Noted Allergy Reaction PENICILLINS 12/07/2009 2 - Rash ASA (SALICYLATES) 01/27/2011 14 - Other: See Comments Comments: ulcers CONTRAST DYE (IODINE) 05/17/2008 12 - Shortness of Breath FLAGYL (METRONIDAZOLE HCL) 03/11/2010 12 - Shortness of Wisner th IBUPROFEN 06/18/2016 8 - GI Upset [...] on 2020-02-28 CNPN Telephone (FAMPWS) Normal 02-28-2020 [place] SALLY Martinez ([id number]) 1980 [place] Date Time Provider Department ([id number]) 02/28/20 [facility] During your visit today, we recorded the following informati on about you: Janneth Zhou, RN, RN 02/28/2020 10:41 AM Signed Pt calls for ER F/U appt. States she was at [facility] ER on 02/24 after reportidly [...] XR CHEST 1 VIEW ORIGINAL Normal 02-25-2020 [facility] XR CHEST 1 VIEW Foun [place]ation ([place]) ([id number]) CLINICAL STATEMENT: Chest pain COMPARISON: 04/06/2006 FINDINGS: [...] Troponin I.cardiac <0.020 0.000-0.040 ng/mL Normal 0 [place] [Mass/Vol] [place] ([place]) (71778) Comment: Result Comment: Troponin I r eference range: 0.00-0.040 ng/mL Negative an d non-diagnostic. >0.040 ng/mL Consistent with cardiac damage, increased clinical risk and possibility of myocardial in farction. Serial measurements, a rise & fall in test results, clinical histo ry, appropriate symptoms and/or ECG changes may help assess possibility of NM. *Other non-acute coronary sy ndrome conditions such as CHF, myoc arditis, pulmonary emboli, sepsis and cardiac surgery could result in myoc ardial damage and increased troponi n levels. Performed By: #### CBC, ADIF F, ANEU, BMP, GFR #### [address] [address] mg on 2020-02-25 Magnesium [Mass/Vol] 2.0 1.8-2.4 mg/dL Normal 0 [facility] ([place]) (0000 0) Comment: Performed By: #### CBC, ADIF F, ANEU, BMP, GFR #### [address] [address] lip on 2020-02-25 Lipase Level 562 73-393 U/L High 02-25-2020 [facility] ([place]) (40893) Comment: Performed By: #### CBC, ADIF F, ANEU, BMP, GFR #### [address] [address] cmp on 2020-02-25 Albumin [Mass/Vol] 4.1 3.5-5.0 G/dL Normal 02-25-2020 [facility] ([place]) (76453) Comment: Performed By: #### CBC, ADIF F, ANEU, BMP, GFR #### [address] [address] Albumin/Globulin [Mass 1.2 1.1-2.5 ratio Normal [address] [place] [address]] [facility] ([place]) (91560) Comment: Performed By: #### CBC, ADIF F, ANEU, BMP, GFR #### [address] [address] ALP [Catalytic activity/Vol] 98 40-135 U/L Normal 0 02-25-2020 [facility] ([place]) (0000 0) Comment: Performed By: #### CBC, ADIF F, ANEU, BMP, GFR #### [address] [address] ALT [Catalytic activity/Vol] 30 10-35 U/L Normal 0 02-25-2020 [facility] ([place]) (0000 0) Comment: Performed By: #### CBC, ADIF F, ANEU, BMP, GFR #### [address] [address] AST [Catalytic activity/Vol] 15 10-40 U/L Normal 0 02-25-2020 [facility] ([place]) (0000 0) Comment: Performed By: #### CBC, ADIF F, ANEU, BMP, GFR #### [address] [address] Bili Total 0.4 0.2-1.0 mg/dL Normal 02-25-2020 [facility] ([place]) (34092) Comment: Result Comment: Use of this assay is not recommended for patients undergoing treatment with eltrombopag d ue to the potential for falsely elevated results. Performed By: #### CBC, ADIF F, ANEU, BMP, GFR #### [address] [address] Calcium [Mass/Vol] 8.9 8.4-10.2 mg/dL Normal 02-25-2020 [facility] ([place]) (0000 0) Comment: Performed By: #### CBC, ADIF F, ANEU, BMP, GFR #### [address] [address] Chloride [Moles/Vol] 104 98-107 mmol/L Normal 0 [facility] ([place]) (0000 0) Comment: Performed By: #### CBC, ADIF F, ANEU, BMP, GFR #### [address] [address] CO2 [Moles/Vol] 28 22-29 mmol/L Normal 02-25-2020 [facility] ([place]) (86439) Comment: Performed By: #### CBC, ADIF F, ANEU, BMP, GFR #### [address] [address] Creatinine [Mass/Vol] 1.01 0.55-1.02 mg/dL Normal 02-25-20 20 [facility] ([place]) (20363) Comment: Performed By: #### CBC, ADIF F, ANEU, BMP, GFR #### [address] [address] Electrolyte Balance 9.0 mEq/L Normal 02-25-2020 [facility] ([place]) (33740) Comment: Performed By: #### CBC, ADIF F, ANEU, BMP, GFR #### [address] [address] Globulin (S) [Mass/Vol] 3.4 G/dL Normal 2019 [facility] ([place]) (01740) Comment: Performed By: #### CBC, ADIF F, ANEU, BMP, GFR #### [address] [address] Glucose [Mass/Vol] 112 70-105 mg/dL High 02-25-2020 [facility] ([place]) (49309) Comment: Performed By: #### CBC, ADIF F, ANEU, BMP, GFR #### [address] [address] Potassium [Moles/Vol] 3.7 3.5-5.1 mmol/L Normal 02-25-20 [facility] ([place]) (0000 0) Comment: Performed By: #### CBC, ADIF F, ANEU, BMP, GFR #### [address] [address] Protein [Mass/Vol] 7.5 6.4-8.2 G/dL Normal 02-25-2020 [facility] ([place]) (69089) Comment: Performed By: #### CBC, ADIF F, ANEU, BMP, GFR #### [address] [address] Sodium [Moles/Vol] 141 136-145 mmol/L Normal 02-25-2020 [facility] ([place]) (0000 0) Comment: Performed By: #### CBC, ADIF F, ANEU, BMP, GFR #### [address] [address] Urea nitrogen [Mass/Vol] 21 7-18 mg/dL High 02-24 [facility] ([place]) (12909) Comment: Performed By: #### CBC, ADIF F, ANEU, BMP, GFR #### [address] [address] Urea nitrogen/Creatinine [Mass 21 7-27 ratio Normal 02-25-2020 [facility]] [facility] ([place]) (39945) Comment: Performed By: #### CBC, ADIF F, ANEU, BMP, GFR #### [address] [address] cbc on 2020-02-25 Erythrocyte distribution 14.9 11.5-14.5 % High 02-24 [facility] width (RBC) [Ratio] ([place]) (20881) Comment: Performed By: #### CBC, ADIF F, ANEU, BMP, GFR #### [place] [address] Hematocrit (Bld) [Volume 35.9 37.0-47.0 % Low 02-24 [facility] fraction] ([place]) (0000 0) Comment: Performed By: #### CBC, ADIF F, ANEU, BMP, GFR #### [place] [address] Hemoglobin (Bld) 11.8 12.0-16.0 G/dL Low 02-25-2020 [facility] [Mass/Vol] ([place]) (000 00) Comment: Performed By: #### CBC, ADIF F, ANEU, BMP, GFR #### [place] [id number] MCH (RBC) [Entitic mass] 29.5 27.0-31.2 pg Normal 02-24 [facility] ([place]) (0000 0) Comment: Performed By: #### CBC, ADIF F, ANEU, BMP, GFR #### [place] [id number] MCHC (RBC) [Mass/Vol] 32.9 33.0-37.0 G/dL Low 02-25-20 20 [facility] ([place]) (0000 0) Comment: Performed By: #### CBC, ADIF F, ANEU, BMP, GFR #### [place] [id number] MCV (RBC) [Entitic vol] 89.9 80.0-94.0 fL Normal 2019 [facility] ([place]) (0000 0) Comment: Performed By: #### CBC, ADIF F, ANEU, BMP, GFR #### [place] [address] Platelet mean volume 9.2 7.4-10.4 fL Normal 0 [facility] (d) [Entitic vol] ([place]) (34912) Comment: Performed By: #### CBC, ADIF F, ANEU, BMP, GFR #### [place] [address] Platelets (Bld) [#/Vol] 265 130-400 10 3/mcL Normal 2019 [facility] ([place]) (06603) Comment: Performed By: #### CBC, ADIF F, ANEU, BMP, GFR #### [place] [address] RBC (Bld) [#/Vol] 4.00 4.20-5.40 10 6/mcL Low 02-25-2020 [facility] ([place]) (0000 0) Comment: Performed By: #### CBC, ADIF F, ANEU, BMP, GFR #### [place] [address] WBC (Bld) [#/Vol] 9.90 4.60-10.80 10 3/mcL Normal 02-25-2020 [facility] ([place]) (63775) Comment: Performed By: #### CBC, ADIF F, ANEU, BMP, GFR #### [place] [address] .neuabs on Neutrophils (Bld) 6.00 2.85-6.16 10 3/mcL Normal 02-25-2020 A [facility] [#/Vol] [facility] ([place]) (54321) Comment: Performed By: #### CBC, ADIF F, ANEU, BMP, GFR #### [address] [address] .gfr on 2020-02-25 GFR Non- 61 ml/min/1.73sqm Normal 02-25-2020 [facility] ([place]) (16556) Comment: Result Comment: GFR Population mean for Afri can Angolan, Non- Americans Ages 20-29 = 116 mL/min/1.73 [...] CBC, ADIF F, ANEU, BMP, GFR #### [address] [address] GFR 74 ml/min/1.73sqm Normal 02-12 [facility] ([place]) (0000 0) Comment: Result Comment: GFR Population mean for Afri can Angolan, Non- Americans Ages 20-29 = 116 mL/min/1.73 [...] CBC, ADIF F, ANEU, BMP, GFR #### [address] [address] .auto diff on 02-24 Ammonia (P) [Mass/Vol] 0.60 0.15-1.00 10 3/mcL Normal 020 [facility] ([place]) (65871) Comment: Performed By: #### CBC, ADIF F, ANEU, BMP, GFR #### [address] [address] Basophils (Bld) 0.00 0.00-0.19 10 3/mcL Normal 02-25-2020 [facility] [#/Vol] [facility] ([place]) (83933) Comment: Performed By: #### CBC, ADIF F, ANEU, BMP, GFR #### [address] [address] Basophils/100 WBC (Bld) 0.2 0.0-2.5 % Normal 2019 [facility] ([place]) (0000 0) Comment: Performed By: #### CBC, ADIF F, ANEU, BMP, GFR #### [address] [address] Eosinophils (Bld) 0.30 0.00-0.40 10 3/mcL Normal 02-25-2020 [facility] [#/Vol] [facility] ([place]) (42668) Comment: Performed By: #### CBC, ADIF F, ANEU, BMP, GFR #### [address] [address] Eosinophils/100 WBC (Bld) 3.5 0.0-7.0 % Normal 02-12 [facility] ([place]) (0000 0) Comment: Performed By: #### CBC, ADIF F, ANEU, BMP, GFR #### [address] [address] Lymphocytes (Bld) 2.90 0.77-3.85 10 3/mcL Normal 02-25-2020 [facility] [#/Vol] [facility] ([place]) (30158) Comment: Performed By: #### CBC, ADIF F, ANEU, BMP, GFR #### [address] [address] Lymphocytes/100 WBC (Bld) 28.9 10.0-50.0 % Normal 02-12 [facility] ([place]) (49406) Comment: Performed By: #### CBC, ADIF F, ANEU, BMP, GFR #### [address] [address] Monocytes/100 WBC (Bld) 6.3 1.7-13.0 % Normal 2019 [facility] ([place]) (0000 0) Comment: Performed By: #### CBC, ADIF F, ANEU, BMP, GFR #### [facility] [address] [place] [address] Neutrophils/100 WBC (Bld) 61.1 37.0-80.0 % Normal 02-12 [facility] ([place]) (44949) Comment: Performed By: #### CBC, ADIF F, ANEU, BMP, GFR #### [facility] [address] [place] [address] progress on 2020-02 PROGRESS HNO ID: [id number] Normal 02-23-2020 [facility] Author: Marcelino Mejia [place] ([id number]) Service: ? Author Type: Physician Type: Progress Notes Filed: 02/23/2020 12:21 PM Note Text: This Team Access Model visit is a phone encounter. It requir ed patient-provider interaction for the medical decision making as documented below. The patient is identified by name and birthday. Patient loca tion: [place] The patient is aware that I am [...] on 2020-02-20 CNPN Telephone (FAMPWS) Normal 02-20-[address] [place] [facility] SALLY MCGREGOR ([id number]) 1980 [facility] Date Time Provider Department ([id number]) 02/20/20 MARCELINO MEJIA During your visit today, we recorded the following informati on about you: Lexy Tapia RN 02/20/2020 8:40 AM Signed fyi- Patient calls to report to PCP that she was back in [facility] ER over weekend due to pain from Pancreatitis. Her level was 800, so they s ent me home. States she received Oxycodone and report s that it is not doing much to relieve her pain and wanted PCP aware that she was in ER again. Patient did not have phone number of [facility] to schedule f ollow up. This [...] (METRONIDAZOLE HCL) 03/11/2010 12 - Shortness of Wisner th IBUPROFEN 06/18/2016 8 - GI Upset [...] Encounter Status:Closed by MARCELINO MEJIA on 02/20/20 [facility]) Normal 02-20-[address] [place] [facility] SALLY MCGREGOR ([id number]) 1980 [facility] Date Time Provider Department ([id number]) 02/20/20 MARCELINO MEJIA [facility] During your visit today, we recorded the following informati on about you: Christopher Carcamo RN 02/20/2020 9:48 AM Signed Patient phoned crying and distraught, stating [facility], can not get her in until March. States she cannot take this pain anymore, her insurance will not cover anyone in [facility] When she was in the hospital [...] pain right now, she is upset because [facility] cannot see her until March. Asking if there is anything pcp can do to get her in sooner? Ple ase phone patient with reply. Marcelino Mejia MD 02/20/2020 10:15 AM Signed Let patient know the only op tions ar for her to go to [facility] ER to see if will be [...] has no one to take her to [place]. She said when she goes to [facility] the y just drug her [...] Crying. She cannot get transport ation to [facility]. Insurance does not cover [facility] and do es not want to go back to [place] because they will just send h er home with meds and dope me up for 3-4 days. Johnathon SOTELO cannot get her an appointment until March . Will route to clerical gastro for schedu ling within [facility] - possibly [facility]. Marcelino Mejia MD 02/20/2020 12:34 PM Signed noted Augustina Vera RN SENIOR ASSISTANT MANAGER.JAKI 02/20/2020 12:40 PM Signed I'd suggest that she go to [place] ED today. it w ould not be [...] she has no way of getting to [facility]. Pt states she does not th ink they take her insurance either. Spoke with PCP who suggested [facility]. Relayed message to pt, pt started yelling stating she has no transp ortation. States if she calls ambulance they will only take her within [facility]. Sta los her boyfriend can't take [...] illness. Asking letter to be faxed to [phone]. Marcelino Mejia MD 02/20/2020 2:38 PM Signed Let patient know ER report from 02/18/2020 was reviewed and th e ER Physician wanted to keep but she preferred to go home and see if she c ould manage it there. Lorenzo Vu 02/20/2020 4:06 PM Signed Patient returned call, stating she went to [facility] ER today an d they discharged her because her level is less than 800. Reques ting something for pain, that Percocet helped some in past. No transportation to go anywhe re but [place] (?social secretary to help with transportat ion). Does not [...] doctor. In regards to her letter for [place] [employer] karsten what I [...] Signed Letter ready to be faxed to [phone]. Branden Sanders Ma 02/21/2020 8:24 AM Signed [...] Status:Closed by BRANDEN SANDERS MA on 02/21/20 [facility] Normal 02-20-2020 [place] SALLY Martinez ([id number]) 1980 [facility] Date Time Provider Department ([id number]) 02/20/20 [facility] During your visit today, we recorded the following informati on about you: Melanie Debby HERNANDEZ 02/20/2020 2:25 PM Signed Patient calling wants note sent to PCP, she is currently i n [facility] ER. Patient said she has [...] Encounter Status:Closed by MARCELINO MEJIA on 02/20/20 [facility] 2020-02-16 [facility] Telephone ([facility]) Normal 02-16-2020 [place] SALLY Martinez ([id number]) 1980 [place] Date Time Provider Department ([id number]) 02/16/20 JESSICA JESUS) [facility] During your visit today, we recorded the [...] Telephone (FAMPWS) Normal 02-16-2020 [place] SALLY Martinez ([id number]) 1980 [place] Date Time Provider Department ([id number]) 02/16/20 ISABEL ARIAS) RAMA During your visit [...] (METRONIDAZOLE HCL) 03/11/2010 12 - Shortness of Wisner th IBUPROFEN 06/18/2016 8 - GI Upset [...] 02/16/20 progress on 2020-02 PROGRESS HNO ID: [id number] Normal 02-15-2020 [facility] Author: Marcelino Mejia [place] ([id number]) Service: ? Author Type: Physician Type: Progress [...] at today?s visit. Patient was sen in [facility] ER on 02/01/2020 with C/O [...] being home. [facility] yesterday for mouth sor es [...] nosis) - CONSULT TO GASTROENTEROLOGY: [facility] in [place] - Cont prn phenergan. 2. Tongue ulcer [...] 02-15-2020 [facility] activity/Vol] [place] and (42048) Comment: Performed By: #### HBA1C, TS H, LIPNF #### [facility] [address] [place], [place] [address] comp metabolic panel on 2020-02-15 Albumin [Mass/Vol] 4.6 3.9-4.9 g/dL Normal 02-15-2020 [facility] (81862) Comment: Performed By: #### HBA1C, TS H, LIPNF #### [place] [address] [place], [place] [address] ALP [Catalytic activity/Vol] 90 34-123 U/L Normal 0 02-15-2020 [facility] (31543) Comment: Performed By: #### HBA1C, TS H, LIPNF #### [facility] [address] [place], [place] [address] ALT [Catalytic activity/Vol] 6 7-38 U/L Low 0 02-15-2020 [facility] (04324) Comment: Performed By: #### HBA1C, TS H, LIPNF #### [facility] [address] [place], [place] [address] Anion gap [Moles/Vol] 13 9-18 mmol/L Normal 02-15-20 [facility] (89894) Comment: Performed By: #### HBA1C, TS H, LIPNF #### [facility] [address] [place], [place] [address] AST [Catalytic activity/Vol] 20 13-35 U/L Normal 0 02-15-2020 [facility] (17435) Comment: Performed By: #### HBA1C, TS H, LIPNF #### [facility] [address] [place], [place] [address] Bilirubin [Mass/Vol] 0.2 0.2-1.3 mg/dL Normal 0 [facility] (62886) Comment: Performed By: #### HBA1C, TS H, LIPNF #### [facility] [address] [place] [id number] Calcium [Mass/Vol] 10.2 8.5-10.2 mg/dL Normal 02-15-2020 [facility] (55547) Comment: Performed By: #### HBA1C, TS H, LIPNF #### [place] [address] Chloride [Moles/Vol] 100 97-105 mmol/L Normal 0 [facility] (23182) Comment: Performed By: #### HBA1C, TS H, LIPNF #### [facility] [place] [id number] CO2 [Moles/Vol] 26 22-30 mmol/L Normal 02-15-2020 [facility] (82903) Comment: Performed By: #### HBA1C, TS H, LIPNF #### [facility] [place] [id number] Creatinine [Mass/Vol] 0.92 0.58-0.96 mg/dL Normal 02-15-20 20 [facility] (26226) Comment: Performed By: #### HBA1C, TS H, LIPNF #### [facility] [place] [id number] eGFR- Amer. >60 Normal 02-15-2020 [facility] (82517) Comment: Performed By: #### HBA1C, TS H, LIPNF #### [facility] [address] [place], [place] [address] GFR/1.73 sq M predicted >60 mL/min/{1.73_m2} Normal 02-15-2020 [facility] among non-blacks MDRD [place] (03767) (S/P/Bld) [Vol rate/Area] Comment: Result Comment: eGFR [...] By: #### HBA1C TS H, LIPNF #### [facility] [address] [place], [place] [address] Glucose [Mass/Vol] 89 74-99 mg/dL Normal 02-15-2020 [facility] (08840) Comment: Result Comment: The [place] Diabetes Association (ADA) provides guidance for cutoff [...] for diagnosis of diabetes. Reference: Standards of [facility] Care in Diabetes 2016, [place] Diabetes Association. Diabetes Care. 2016.39(Suppl 1). Performed By: #### HBA1C, TS H, LIPNF #### [facility] [address] [place], [place] [address] Potassium [Moles/Vol] 3.7 3.7-5.1 mmol/L Normal 02-15-20 20 [facility] (86899) Comment: Performed By: #### HBA1C, TS H, LIPNF #### [facility] [address] [place], [place] [address] Protein [Mass/Vol] 7.8 6.3-8.0 g/dL Normal 02-15-2020 [facility] (08440) Comment: Performed By: #### HBA1C, TS H, LIPNF #### [facility] [address] [place], [place] [id number] Sodium [Moles/Vol] 139 136-144 mmol/L Normal 02-15-2020 [facility] (59081) Comment: Performed By: #### HBA1C, TS H, LIPNF #### [facility] [address] [place], [place] [address] Urea nitrogen [Mass/Vol] 9 7-21 mg/dL Normal 02-14 [facility] (05212) Comment: Performed By: #### HBA1C, TS H, LIPNF #### [facility] [address] [place], [place] [address] cnov on 2020-02-15 CNOV Office Visit (FAMPWS) Normal 02-15-[address] [place] [address] [facility] SALLY MCGREGOR ([id number]) 1980 [facility] Date Time Provider Department ([id number]) 02/15/20 2:20 PM MARCELINO MEJIA FAMPWS During [...] at today?s visit. Patient was sen in [facility] ER on 02/01/2020 with C/O [...] being home. [facility] f or mouth sores [...] diagnosis) - CONSULT TO GASTROENTEROLOGY: [facility] in [place] - Cont prn phenergan. 2. Tongue ulcer [...] (METRONIDAZOLE HCL) 03/11/2010 12 - Shortness of Wisner th IBUPROFEN 06/18/2016 8 - GI Upset PREDNISONE 06/18/2016 14 - Other: See Comments Comments: makes agitated and mean Date Reviewed: 02/15/2020 Reviewed by: Marcelino Mejia - Fully Assessed Reason for Visit: Transition Of Care [4074] Cmt: [facility] pancreatitis Reason For Visit History Recorded Primary Visit Diagnosis:Acute pancreatitis without infection or necrosis, unspecified pancreatitis type [K85.90] Other Visit Diagnoses:Tongue ulcer [K14.0] Poor dentition [K08.9] Thrush [B37.0] Order(s):CONSULT TO GASTROENTEROLOGY [9047] Order #: 1 [id number]: 1 FUTURE triamcinolone (KENALOG IN ORABASE) 0.1 [...] Abs Baso 0.07 <0.11 k/uL Normal 02-15-2020 [facility] (99353) Comment: Performed By: #### HBA1C, TS H, LIPNF #### [facility] [address] [place], [place] [address] Abs Bartow 0.53 <0.87 k/uL Normal 02-15-2020 [facility] (52571) Comment: Performed By: #### HBA1C, TS H, LIPNF #### [facility] [address] [place], [place] [address] Abs Neut 6.05 1.45-7.50 k/uL Normal 02-15-2020 [facility] (18348) Comment: Performed By: #### HBA1C, TS H, LIPNF #### [facility] [address] [place], [place] [address] Absolute nRBC <0.01 <0.01 Normal 02-15-2020 [facility] (35266) Comment: Performed By: #### HBA1C, TS H, LIPNF #### [facility] [place] [address] Basophils/100 WBC (Bld) 0.7 % Normal 2019 [facility] (65767) Comment: Performed By: #### HBA1C, TS H, LIPNF #### [facility] [address] [place] [address] DTYPE Auto Diff Normal 02-15-2020 [facility] (42307) Comment: Performed By: #### HBA1C, TS H, LIPNF #### [place] [address] Eosinophils (Bld) [#/Vol] 0.38 <0.46 k/uL Normal [facility] (74941) Comment: Performed By: #### HBA1C, TS H, LIPNF #### [facility] [place] [address] Eosinophils/100 WBC (Bld) 3.9 % Normal [facility] (03358) Comment: Performed By: #### HBA1C, TS H, LIPNF #### [facility] [place] [address] Erythrocyte distribution 14.7 11.5-15.0 % Normal 02-14 [facility] width (RBC) [Ratio] [place] ([address]) Comment: Performed By: #### HBA1C, TS H, LIPNF #### [facility] [address] [place], [place] [address] Hematocrit (Bld) [Volume 40.4 36.0-46.0 % Normal 02-14 [facility] (40220) Comment: Performed By: #### HBA1C, TS H, LIPNF #### [address] [address] Hemoglobin (Bld) 12.0 11.5-15.5 g/dL Normal 02-15-2020 [facility] [Mass/Vol] [place] ([address]) Comment: Performed By: #### HBA1C, TS H, LIPNF #### [place] [address] Lymphocytes (Bld) [#/Vol] 2.77 1.00-4.00 k/uL Normal [facility] (30552) Comment: Performed By: #### HBA1C, TS H, LIPNF #### [address] [address] Lymphocytes/100 WBC (Bld) 28.3 % Normal [facility] (70112) Comment: Performed By: #### HBA1C, TS H, LIPNF #### [address] [address] MCH (RBC) [Entitic mass] 28.6 26.0-34.0 pG Normal 02-14 [facility] (81011) Comment: Performed By: #### HBA1C, TS H, LIPNF #### [address] [address] MCHC (RBC) [Mass/Vol] 29.7 30.5-36.0 g/dL Low 02-15-20 [facility] (77942) Comment: Performed By: #### HBA1C, TS H, LIPNF #### [address], [place] [address] MCV (RBC) [Entitic vol] 96.4 80.0-100.0 fL Normal 02-14 [facility] (78019) Comment: Performed By: #### HBA1C, TS H, LIPNF #### [facility] [address] [place], [place] [address] Monocytes/100 WBC (Bld) 5.4 % Normal 2019 [facility] (01054) Comment: Performed By: #### HBA1C, TS H, LIPNF #### [facility] [address] [place], [place] [address] Neutrophils/100 WBC (Bld) 61.7 % Normal [facility] (63994) Comment: Performed By: #### HBA1C, TS H, LIPNF #### [facility] [address] [place], [place] [address] NRBCs 0.0 0 /100 WBC Normal 02-15-2020 [facility] (03526) Comment: Performed By: #### HBA1C, TS H, LIPNF #### [facility] [address] [place], [place] [address] Platelet mean volume 10.6 9.0-12.7 fL Normal 0 [facility] (Bld) [Entitic vol] [place] ([address]) Comment: Performed By: #### HBA1C, TS H, LIPNF #### [facility] [address] [place], [place] [address] Platelets (Bld) [#/Vol] 435 150-400 k/uL High 2019 [facility] (23728) Comment: Performed By: #### HBA1C, TS H, LIPNF #### [facility] [address] [place], [place] [address] RBC (Bld) [#/Vol] 4.19 3.90-5.20 m/uL Normal 02-15-2020 [facility] (59171) Comment: Performed By: #### HBA1C, TS H, LIPNF #### [facility] [address] [place], [place] [address] WBC (Bld) [#/Vol] 9.80 3.70-11.00 k/uL Normal 02-15-2020 [facility] (33718) Comment: Performed By: #### HBA1C, TS H, LIPNF #### [facility] [address] [place], [place] [address] amylase on Amylase [Catalytic 52 30-104 U/L Normal 02-15-2020 [facility] activity/Vol] [place] and (29[address]) Comment: Performed By: #### HBA1C, TS H, LIPNF #### [facility] [address] [place], [place] [address] progress on 2020-02 PROGRESS HNO ID: [id number] Normal 02-14-2020 [facility] Author: Jessica Coppola) [facility] [place] ([id number]) Service: ? Author Type: Physician Commercial Counsel Type: Progress Notes Filed: 02/14/2020 1:14 PM Note Text: This note was created using [employer] Mediariter. Subjective Sally Mcgregor is a 39 year [...] Benign liver cyst 05/24/2010 CT scan at [facility] 11/2009 and 04/2010 showe 4 mm increase in size . No pain. No elevated LFTs on 03/11/2010. - Calculus of kidney 05/17/[address] Nicolas: Hospitalized age 20, and again later -- no procedures so far ([facility], [facility], 1995 [facility]) - Dysmenorrhea - Impaired fasting [...] MG DAILY September 02, 2019 5:34am 09-02-2019 [facility] (15869) - ondansetron orally disintegrating (ZOFRAN ODT) 4 [...] Approx. 3 cigarettes daily-1 pack every w [place] Substance Use Topics - Alcohol use: Yes [...] Sp. Request/Comment: - Swab Critical ly 02-14-2020 [facility] abnormal [place] Culture Result - Few Neris glabrata --> ABNORMAL ALERT (09714) Comment: Performed By: #### HBA1C, TS H, LIPNF #### [facility] [address] [place] [address] cnov on 2020-02-14 CNOV Office Visit (UCWSTR) Normal 02-14-[address] [place] [facility] SALLY MCGREGOR ([id number]) 1980 [facility] Date Time Provider Department ([id number]) 02/14/20 12:45 PM JESSICA JESUS (CHAZ) UCWSTR [...] Benign liver cyst 05/24/2010 CT scan at [facility] 11/2009 and 04/2010 showe 4 mm increase in size . No pain. No elevated LFTs on 03/11/2010. - Calculus of kidney 05/17/[address] Nicolas: Hospitalized age 20, a nd again later -- no procedures so far ([facility], [facility], [place], 1995 [facility]) - Dysmenorrhea - Impaired fasting [...] DAILY September 02, 2019 5:34am 12-20-2 019 [facility] ([id number]) - ondansetron orally disintegrating (ZOFRAN ODT) 4 [...] removed - TOTAL ABDOM HYSTERECTOMY 08/31/06 Hysterectomy, [facility] FAMILY HISTORY Problem Relation Age of [...] Approx. 3 cigarettes daily-1 pack every w [place] Substance Use Topics - Alcohol use: Yes [...] (METRONIDAZOLE HCL) 03/11/2010 12 - Shortness of Wisner th IBUPROFEN 06/18/2016 8 - GI Upset [...] mLRfl: 0 FUNGAL SCREEN [SQFUNGSC] Order #: [id number] Prescriptions as of 02/14/2020 Sig: PROMETHAZINE 25 [...] JESUS PA-C on 02/14/20 cnpn on 2020-02-13 [facility]) Normal 02-13-2020 [place] SALLY Martinez ([id number]) 1980 Donato Mata Date Time Provider Department ([id number]) 02/13/20 MARCELINO MEJIAPWS During your visit today, we recorded the following informati on about you: Christopher Carcamo RN 02/13/2020 10:27 AM Signed Patient reports she was discharged from [facility] yesterday, after a 4 day stay, for pancreatitis. Scheduled f/u visit with PA, for tomorro w. Patient asking note be sent to provider also. Reports she still has a sore on he r tongue, [facility] doctor was not concerned about [...] (METRONIDAZOLE HCL) 03/11/2010 12 - Shortness of Wisner th IBUPROFEN 06/18/2016 8 - GI Upset PENICILLINS 12/07/2009 2 - Rash PREDNISONE 06/18/2016 14 - Other: See Comments Comments: makes agitated and mean Date Reviewed: 01/02/2020 Reviewed by: Ashley Lehman Ma - Fully Assessed Reason for Visit: [facility] visit [Other] Prescriptions as of [...] Encounter Status:Closed by ROXANNE PATEL on 02/13/20 [facility] Normal 02-09-[address] [place] [facility] SALLY MCGREGOR ([id number]) 1980 [facility] Date Time Provider Department ([id number]) 02/09/20 [facility] During your visit today, we recorded [...] calls back, stating she is currently at [facility] ER. States she had labs [...] 02/09/20 progress on 2020-01 PROGRESS HNO ID: [id number] Normal 02-08-2020 [facility] Author: Isabel Romero) Hugo Mata ([id number]) Service: ? Author Type: Physician Commercial Counsel Type: Progress Notes Filed: 02/08/2020 10:57 AM [...] per patient report who presented to the [facility] ED on 02/01/20 with i [...] seroquel and she has talked with [facility] office for what to do next. She has been taking oxycodone every 4 hours but has not need any yet today. Does mention a sore on her forearm. States getting worse. Red and hardened. 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 States she noticed it first in hospital. She is unable to send picture or have video conference. Is w illing to come to . HISTORY REVIEWED (electronic chart updated): - medical history - medications - allergies REVIEW OF SYSTEMS: As noted in HPI PHYSICAL EXAMINATION: [facility] 08/10/2006 No vitals taken. Deferred physical [...] have arm and mouth evaluated to benito etermderke if developing cellulitis since I cannot evaluate via telephone. ISABEL ARIAS PA-C Total appointment time on phone with patient = 30+ minutes progress on 2020-01 PROGRESS HNO ID: [id number] Normal 02-07-2020 [facility] Author: Yvette Huffman RN [place] ([id number]) Service: ? Author Type: ? Type: Progress [...] might be hidden SUMMARY: -Pt discharged from [facility] on 02-05-2020. -Follow up appointment [...] per patient report who presented to the [facility] ED on 02/01/20 with i [...] CNPTOUTREACH Patient Outreach (FAMPWS) Normal 0 02-07-2020 [place] Debra SALLY MCGREGOR ([id number]) 1980 F [facility] Time Provider Department ([id number]) 02/07/20 MARCELINO MEJIA During your visit today, [...] might be hidden SUMMARY: -Pt discharged from [facility] on 02-05-2020. 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, Migraines, Known Lung Nodules, Hx Uteri ne CA, Hx Nephrolithiasis, Tobacco use, Anxiety and Depression with Suspected Bipolar disorder recently starte d on seroquel and sertraline, Recent Dental ev aluation with Infection on clindamycin with planned upcoming removal in 4-6 week s per patient report who presented to the [facility] ED on 02/01/20 with intermittent [...] (METRONIDAZOLE HCL) 03/11/2010 12 - Shortness of Wisner th IBUPROFEN 06/18/2016 8 - GI Upset [...] 02/07/20 emergency report on 2020-01-28 [facility]PORT [facility] Normal 01-27 [facility] EMERGENCY ROOM REPORT ([id number]) NAME ACCOUNT SEX AGE ADMIT DISCHARGE PT MED. RECORD# NUMBER DATE DATE TYPE SAM, [id number] F 39 01/20/20 01/21/20 [place] ZHENG [id number] ROOM: ER DATE OF : 1980 DICTATING [...] PHYSICAL EXAMINATION: Physic al examination reveals a yqx-jxi-nwytldqgo female in no acute distress, resting c [...] plan for transfer to an outside [facility] for further management. Discussed the patient with Dr. Coleman at [facility], who accepted the patient for admission. The patient was transferred to [facility] in stable condition. Dictated By: Ana Alcantar MD 01/21/20 01:30 JOB #: [id number] Transcribed By: thanh 01/21/20 10:04 Electronically signed by: Jennifer Perez MD 01/28/20 00:29 Page 2 of 2 SALLY MCGREGOR Emergency Room Report myco on 2020-01-26 Mycoplasma IgG POS Normal 01-26-2020 [facility] ([place]) ([id number]) Comment: Result Comment: INTERPRETATI ON OF MYCOPLASMA [...] CBC, ADIF F, ANEU, BMP, GFR #### [place] [address] progress on 2020-01 PROGRESS HNO ID: [id number] Normal 01-25-2020 [facility] Author: Roxanne Patel [place] ([id number]) Service: ? Author Type: Post Anesthesia Room Nurse Type: Progress Notes Filed: 01/25/2020 7:39 AM Note Text: Te made to get setup. Roxanne Patel MA cnpn on 2020-01-25 CNPN Telephone (FAMPWS) Normal 01-25-2020 [place] [facility] SALLY MCGREGOR ([id number]) 1980 [facility] Date Time Provider Department (21066) 01/25/20 ISABEL ARIAS) [facility] During your visit today, we recorded the following informati on about you: Roxanne Patel MA, MA 01/25/2020 7:39 AM Signed Please help patient get setup for MRI. BROCK Fritz Pss 01/25/2020 11:05 AM Signed Attempted to reach patient and she does not have a voice m ail set up Trying to schedule an MRI of the Brain Milly Green [facility] 01/25/2020 3:35 PM Signed Spoke [...] (METRONIDAZOLE HCL) 03/11/2010 12 - Shortness of Wisner th IBUPROFEN 06/18/2016 8 - GI Upset [...] 01/26/20 progress on 2020-01 PROGRESS HNO ID: [id number] Normal 01-24-2020 [facility] Author: Isabel (Pa-Kimmie) Hugo Mata ([id number]) Service: ? Author Type: Physician Commercial Counsel Type: Progress Notes Filed: 01/24/2020 4:03 PM Note Text: DISTANCE HEALTH VISIT This Team Access Model visit is a phone encounter. It requir ed patient-provider interaction for the medical decision making as documented below. No video was used for evaluation of this patient. Patient consents to visit. Patient's location: [place] Chief Complaint No chief complaint on file. [...] patient was to see pain specialist in [facility]. She has missed or cancelled appointments due [...] over the weekend. She was transferred to [place] in [place]. Reports n ot available but patient states ECHO and labs were normal. . States she received a phone call from [place] And was told negative for Covid. [...] pharmacy. She did receive phone call from machine finisher last week and w ill be set up for heart monitor. She was suppose to have stress testing done at [facility] today and Carotid US done [...] Benign liver cyst 05/24/2010 CT scan at [facility] 11/2009 and 04/2010 showe 4 mm increase in size . No pain. No elevated LFTs on 03/11/2010. - Calculus of kidney 05/17/[address] Nicolas: Hospitalized age 20, and again later -- no procedures so far ([facility], [facility] [place], 1995 [facility]) - Dysmenorrhea - Impaired fasting [...] removed - TOTAL ABDOM HYSTERECTOMY 08/31/06 Hysterectomy, [facility] Family History FAMILY HISTORY Problem Relation [...] MG DAILY September 02, 2019 5:34am 09-02-2019 [facility] ([id number]) - ondansetron orally disintegrating (ZOFRAN ODT) 4 [...] mg capsule Take 1 capsule by mo pah daily at bedtime for 90 days. - [...] Approx. 3 cigarettes daily-1 pack every w [place] Substance Use Topics - Alcohol use: Yes [...] - ICD9: 786.59, ICD10: R07.89 Continue with machine finisher. Will attempt to get records to see [...] minutes covid on 2020-01-24 COVID 19 Result APPOINTMENT SCHEDULER See Below [facility] Normal 01-24-2020 [facility] ([place]) (0000 0) Comment: Result Comment: Negative Negative for COVID19 (SARS C oV2) by PCR. This test was developed and its performance characteristics determined by [facility]'s [facility] [place]. This test has bee n authorized by [...] issued on November 12, 2019. Performed By: [facility] [employer] [place] [address] Head Of Talent Management: Raphael liriano III, M.D. CLIA#: [id number] Phone#: Performed By: #### CBC, ADIF F, ANEU, BMP, GFR #### [place] [address] COVID 19 Source APPOINTMENT SCHEDULER See Below Normal 01-24-2020 [facility] ([place]) (19731) Comment: Result Comment: Nasopharynge al Swab Performed By: [facility] [employer] [place] [address] Head Of Talent Management: Raphael liriano III, M.D. CLIA#: [id number] Phone#: Performed By: #### CBC, ADIF F, ANEU, BMP, GFR #### [address] [address] myco on 2020-01-23 Mycoplasma IgM Negative Normal 01-23-2020 [facility] ([place]) (65564) Comment: Result Comment: INTERPRETATI ON OF MYCOPLASMA [...] CBC, ADIF F, ANEU, BMP, GFR #### [address] [address] crp on 2020-01-23 CRP [Mass/Vol] 0.57 <=0.80 mg/dL Normal 01-23-2020 [facility] ([place]) (41975) Comment: Performed By: #### CBC, ADIF F, ANEU, BMP, GFR #### [address] [address] cnpn on 2020-01-23 CNPN Telephone (FAMPWS) Normal 01-23-[address] [place] [facility] SALLY MCGREGOR ([id number]) 1980 F [place] Date Time Provider Department (16412) 01/23/20 ISABEL ARIAS (MAYA) FAMPWS During your visit today, we recorded the following informati on about you: Lexy Tapia RN 01/23/2020 8:55 AM Signed fyi-Patient calls to report that she went to [facility] with chest pain. Transferred to [facility] and Echo was normal. 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 [facility] so waiting o n community action [...] Erythrocyte distribution 14.1 11.5-15.5 % Normal 01-22 [facility] (RBC) [Ratio] [facility] ([place]) (31536) Comment: Performed By: #### CBC, ADIF F, ANEU, BMP, GFR #### [address] [address] Hematocrit (Bld) [Volume 35.6 34.0-46.0 % Normal 01-22 [facility] fraction] ([place]) (0000 0) Comment: Performed By: #### CBC, ADIF F, ANEU, BMP, GFR #### [address] [address] Hemoglobin (Bld) 11.9 12.0-16.0 G/dL Low 01-23-2020 [facility] [Mass/Vol] ([place]) (000 00) Comment: Performed By: #### CBC, ADIF F, ANEU, BMP, GFR #### [address] [address] MCH (RBC) [Entitic mass] 30.0 27.0-33.0 pg Normal 01-22 [facility] ([place]) (0000 0) Comment: Performed By: #### CBC, ADIF F, ANEU, BMP, GFR #### [address] [address] MCHC (RBC) [Mass/Vol] 33.4 32.0-36.0 G/dL Normal 01-23-20 20 [facility] ([place]) (0000 0) Comment: Performed By: #### CBC, ADIF F, ANEU, BMP, GFR #### [address] [address] MCV (RBC) [Entitic vol] 89.8 80.0-99.0 fL Normal 2019 [facility] ([place]) (0000 0) Comment: Performed By: #### CBC, ADIF F, ANEU, BMP, GFR #### [place] [id number] Platelet mean volume 8.5 6.6-10.5 fL Normal 0 [facility] (Bld) [Entitic vol] ([place]) ([address]86) Comment: Performed By: #### CBC, ADIF F, ANEU, BMP, GFR #### [address] [address] Platelets (Bld) [#/Vol] 235 150-450 10 3/mcL Normal 2019 [facility] ([place]) (95854) Comment: Performed By: #### CBC, ADIF F, ANEU, BMP, GFR #### [address] [address] RBC (Bld) [#/Vol] 3.97 4.10-5.30 10 6/mcL Low 01-23-2020 A [facility] ([place]) (0000 0) Comment: Performed By: #### CBC, ADIF F, ANEU, BMP, GFR #### [address] [address] WBC (Bld) [#/Vol] 10.20 4.50-10.80 10 3/mcL Normal 01-23-2020 [facility] ([place]) (13138) Comment: Performed By: #### CBC, ADIF F, ANEU, BMP, GFR #### [address] [address] bmp on 2020-01-23 Creatinine [Mass/Vol] 0.94 0.50-1.20 mg/dL Normal 01-23-20 20 [facility] ([place]) (40788) Comment: Performed By: #### CBC, ADIF F, ANEU, BMP, GFR #### [address] [address] Urea nitrogen/Creatinine 20.2 10.0-22.0 ratio Normal 01-22 [facility] [Mass ratio] [facility] ([place]) (31852) Comment: Performed By: #### CBC, ADIF F, ANEU, BMP, GFR #### [address] [address] Calcium [Mass/Vol] 9.4 8.4-10.1 mg/dL Normal 01-23-2020 [facility] ([place]) (0000 0) Comment: Performed By: #### CBC, ADIF F, ANEU, BMP, GFR #### [address] [address] Chloride [Moles/Vol] 106 98-110 mEq/L Normal 0 [facility] ([place]) (0000 0) Comment: Performed By: #### CBC, ADIF F, ANEU, BMP, GFR #### [address] [address] CO2 [Moles/Vol] 28 22-32 mEq/L Normal 01-23-2020 [facility] ([place]) (18046) Comment: Performed By: #### CBC, ADIF F, ANEU, BMP, GFR #### [address] [address] Electrolyte Balance 6.0 4.0-15.0 mEq/L Normal 01-23-2020 [facility] ([place]) (0000 0) Comment: Performed By: #### CBC, ADIF F, ANEU, BMP, GFR #### [address] [address] Glucose [Mass/Vol] 91 70-110 mg/dL Normal 01-23-2020 [facility] ([place]) (77174) Comment: Performed By: #### CBC, ADIF F, ANEU, BMP, GFR #### [address] [address] Potassium [Moles/Vol] 4.2 3.5-5.0 mEq/L Normal 01-23-20 20 [facility] ([place]) (0000 0) Comment: Performed By: #### CBC, ADIF F, ANEU, BMP, GFR #### [address] [address] Sodium [Moles/Vol] 140 136-145 mEq/L Normal 01-23-2020 [facility] ([place]) (08939) Comment: Performed By: #### CBC, ADIF F, ANEU, BMP, GFR #### [address] [address] Urea nitrogen [Mass/Vol] 19.0 8.0-22.0 mg/dL Normal 01-22 [facility] ([place]) (83246) Comment: Performed By: #### CBC, ADIF F, ANEU, BMP, GFR #### [address] [address] .morph on 2020-01-13 1 Platelets (Bld) [#/Vol] Normal Normal 2019 [facility] ([place]) (88626) Comment: Result Comment: Few large pl atelets seen. Performed By: #### CBC, ADIF F, ANEU, BMP, GFR #### [address] [address] RBC morphology finding Nom Normal Normal [facility] (d) ([place]) (0000 0) Comment: Performed By: #### CBC, ADIF F, ANEU, BMP, GFR #### [address] [address] .manual diff on -01-22 Basophil %, Manual 0.0 0.0-2.5 % Normal 01-23-2020 [facility] ([place]) ([address]23) Comment: Performed By: #### CBC, ADIF F, ANEU, BMP, GFR #### [address] [address] Basophil, Abs Manual 0.00 0.00-0.27 10 3/mcL Normal 0 [facility] ([place]) (33478) Comment: Performed By: #### CBC, ADIF F, ANEU, BMP, GFR #### [address] [address] Cells Counted 100 Normal 01-23-2020 [facility] ([place]) ([address]) Comment: Performed By: #### CBC, ADIF F, ANEU, BMP, GFR #### [address] [address] Eosinophil %, Manual 0.0 0.0-6.0 % Normal 0 [facility] ([place]) (56334) Comment: Performed By: #### CBC, ADIF F, ANEU, BMP, GFR #### [address] [address] Eosinophil, Abs Manual 0.00 0.00-0.65 10 3/mcL Normal 020 [facility] ([place]) (78764) Comment: Performed By: #### CBC, ADIF F, ANEU, BMP, GFR #### [place] [address] Lymphocyte %, Manual 16.0 20.0-40.0 % Low 0 [facility] ([place]) (59249) Comment: Performed By: #### CBC, ADIF F, ANEU, BMP, GFR #### [address] [address] Lymphocyte, Abs Manual 1.63 0.90-4.32 10 3/mcL Normal 020 [facility] ([place]) (52732) Comment: Performed By: #### CBC, ADIF F, ANEU, BMP, GFR #### [place] [id number] Monocyte %, Manual 5.0 2.0-13.0 % Normal 01-23-2020 [facility] ([place]) (29804) Comment: Performed By: #### CBC, ADIF F, ANEU, BMP, GFR #### [place] [id number] Monocyte, Abs Manual 0.51 0.09-1.40 10 3/mcL Normal 0 [facility] ([place]) (71127) Comment: Performed By: #### CBC, ADIF F, ANEU, BMP, GFR #### [address] [address] Neutrophil %, Manual 79.0 50.0-75.0 % High 0 [facility] ([place]) (43083) Comment: Performed By: #### CBC, ADIF F, ANEU, BMP, GFR #### [place] [address] Neutrophil, Abs Manual 8.06 2.25-8.10 10 3/[facility] Normal 020 [facility] ([place]) (22755) Comment: Performed By: #### CBC, ADIF F, ANEU, BMP, GFR #### [address] [address] .gfr on 2020-01-23 GFR >60 Normal 0 [facility] ([place]) (25177) Comment: Result Comment: GFR Population mean for Afri can Angolan, Non- Americans Ages 20-29 = 116 mL/min/1.73 [...] CBC, ADIF F, ANEU, BMP, GFR #### [place] [address] GFR Non- >60 Normal 01-22 -2019 [facility] ([place]) (78223) Comment: Result Comment: GFR Population mean for Afri can Angolan, Non- Americans Ages 20-29 = 116 mL/min/1.73 [...] CBC, ADIF F, ANEU, BMP, GFR #### [address] [address] spag on 2020-01-22 SPAG . Normal 01-22-2020 [facility] - Microbiology [facility] ([facility] (58985) PROCEDURE: Streptococcus Pneumoniae Urine Antig [^1 *1] [...] Locations *1: This test was performed at: [facility], [address] [place] [address], [address]- , [place] Comment: Performed By: #### CBC, ADIF F, ANEU, BMP, GFR #### [address] [address] respid on 2020-01-13 0 Adenovirus Not Detected Not Detected Normal 01-22-2020 [facility] ([place]) (0000 0) Comment: Performed By: #### CBC, ADIF F, ANEU, BMP, GFR #### [address] [address] Bordetella Not Detected Not Detected Normal 01-22-2020 [facility] Parapertussis Found[place] tion ([place]) (62460) Comment: Performed By: #### CBC, ADIF F, ANEU, BMP, GFR #### [address] [address] Bordetella Pertussis Not Detected Not Detected Normal [facility] ([place]) (25701) Comment: Performed By: #### CBC, ADIF F, ANEU, BMP, GFR #### [address] [address] Chlamydophila Not Detected Not Detected Normal 01-22-2020 [facility] pneumoniae Foundatio n ([place]) (81610) Comment: Performed By: #### CBC, ADIF F, ANEU, BMP, GFR #### [address] [address] Coronavirus 229E Not Detected Not Detected Normal [facility] (Not COVID-19) [place]) (71332) Comment: Performed By: #### CBC, ADIF F, ANEU, BMP, GFR #### [address] [address] Coronavirus HKU1 Not Detected Not Detected Normal 020 [facility] (Not COVID-19) [facility] ([address]86) Comment: Performed By: #### CBC, ADIF F, ANEU, BMP, GFR #### [address] [address] Coronavirus NL63 Not Detected Not Detected Normal 020 [facility] (Not COVID-19) [place] (28423) Comment: Performed By: #### CBC, ADIF F, ANEU, BMP, GFR #### [address] [address] Coronavirus OC43 Not Detected Not Detected Normal 020 [facility] (Not COVID-19) [place]) (26730) Comment: Performed By: #### CBC, ADIF F, ANEU, BMP, GFR #### [place] [address] Human Metapneumovirus Not Detected Not Detected Normal [facility] ([place]) (83759) Comment: Performed By: #### CBC, ADIF F, ANEU, BMP, GFR #### [place] [address] Influenza A Not Detected Not Detected Normal 01-22-2020 A [facility] ([place]) (0000 0) Comment: Performed By: #### CBC, ADIF F, ANEU, BMP, GFR #### [place] [address] Influenza B Not Detected Not Detected Normal 01-22-2020 A [facility] ([place]) (0000 0) Comment: Performed By: #### CBC, ADIF F, ANEU, BMP, GFR #### [place] [address] Mycoplasma Not Detected Not Detected Normal 01-22-2020 [facility] pneumoniae Foundatio n [place]) (71755) Comment: Performed By: #### CBC, ADIF F, ANEU, BMP, GFR #### [place] [address] Parainfluenza 1 Not Detected Not Detected Normal 01-22-20 20 [facility] ([place]) (22128) Comment: Performed By: #### CBC, ADIF F, ANEU, BMP, GFR #### [place] [address] Parainfluenza 2 Not Detected Not Detected Normal 01-22-20 20 [facility] ([place]) (62117) Comment: Performed By: #### CBC, ADIF F, ANEU, BMP, GFR #### [place] [address] Parainfluenza 3 Not Detected Not Detected Normal 01-22-20 [facility] ([place]) (81617) Comment: Performed By: #### CBC, ADIF F, ANEU, BMP, GFR #### [place] [address] Parainfluenza 4 Not Detected Not Detected Normal 01-22-20 [facility] ([place]) (60154) Comment: Performed By: #### CBC, ADIF F, ANEU, BMP, GFR #### [address] [address] Respiratory Not Detected Not Detected Normal 01-22-2020 A [facility] Syncytial Virus Foun dation ([place]) (34628) Comment: Performed By: #### CBC, ADIF F, ANEU, BMP, GFR #### [address] [address] Rhinovirus/Enterovirus Not Detected Not Detected Normal 0 01-22-2020 [facility] ([place]) (55553) Comment: Performed By: #### CBC, ADIF F, ANEU, BMP, GFR #### [address] [address] sonali on 2020-01-22 SONALI . Normal 01-22-2020 [facility] MICRO - Microbiology [facility] ([place]) (06065) PROCEDURE: Legionella Urine Ag [*1] SOURCE: Urine [...] Locations *1: This test was performed at: [facility], [address] [place] [address], [address]- , [place] Comment: Performed By: #### CBC, ADIF F, ANEU, BMP, GFR #### [address] [address] ldh on 2020-01-22 LDH 194 120-246 U/L Normal 01-22-2020 [facility]) (94511) Comment: Performed By: #### CBC, ADIF F, ANEU, BMP, GFR #### [facility] [address] [place] [address] fib on 2020-01-22 Fibrinogen 414 250-550 mg/dL Normal 01-22-2020 [facility] ([place]) (77316) Comment: Performed By: #### CBC, ADIF F, ANEU, BMP, GFR #### [facility] [address] [place] [address] ferr on 2020-01-22 Ferritin [Mass/Vol] 40 8-252 ng/mL Normal 01-22-2020 [facility] ([place]) (79579) Comment: Performed By: #### CBC, ADIF F, ANEU, BMP, GFR #### [facility] [address] [place] [address] dimer on 2020-01-22 Fibrin D-dimer FEU IA <200 0-230 ug/mL Normal 01-22-20 20 [facility] (d) [Mass/Vol] ([place] ) (73109) Comment: Result Comment: Results repo rted in [...] CBC, ADIF F, ANEU, BMP, GFR #### [facility] [address] [place] [address] [address] angiography chest w/contrast on 2020-01-22 CT ANGIOGRAPHY ORIGINAL Normal 01-22-2020 [facility] CHEST W/CONTRAST CT PULMONARY ANGIOGRAM WITH IV CONTRAST: with post-processing, volume rendering and 3-D acquisitions. This exam was performed according to our departmental dose optimization program, and includes the [facility] ([place]) llowing measures where appli cable: automated exposure control, adjustment of the mAs and/or kVp according to patient size and/or exam, and an iterative reconstruction algorithm. Patient received 13 hour (99692) contrast allergy preparation. CLINICAL STATEMENT: elevated d [...] Erythrocyte distribution 13.7 11.5-15.5 % Normal 01-21 [facility] width (RBC) [Ratio] [facility] ([place]) (65578) Comment: Performed By: #### CBC, ADIF F, ANEU, BMP, GFR #### [facility] [address] [place] [address] Hematocrit (Bld) [Volume 36.0 34.0-46.0 % Normal 01-21 [facility] fraction] ([place]) (0000 0) Comment: Performed By: #### CBC, ADIF F, ANEU, BMP, GFR #### [place] [address] Hemoglobin (Bld) 11.9 12.0-16.0 G/dL Low 01-22-2020 [facility] [Mass/Vol] ([place]) (000 00) Comment: Performed By: #### CBC, ADIF F, ANEU, BMP, GFR #### [place] [address] MCH (RBC) [Entitic mass] 29.6 27.0-33.0 pg Normal 01-21 [facility] ([place]) (0000 0) Comment: Performed By: #### CBC, ADIF F, ANEU, BMP, GFR #### [place] [address] MCHC (RBC) [Mass/Vol] 33.0 32.0-36.0 G/dL Normal 01-22-20 20 [facility] ([place]) (0000 0) Comment: Performed By: #### CBC, ADIF F, ANEU, BMP, GFR #### [place] [address] MCV (RBC) [Entitic vol] 89.8 80.0-99.0 fL Normal 2019 [facility] ([place]) (0000 0) Comment: Performed By: #### CBC, ADIF F, ANEU, BMP, GFR #### [place] [address] Platelet mean volume 8.6 6.6-10.5 fL Normal 0 [facility] (Bld) [Entitic vol] ([place]) (34861) Comment: Performed By: #### CBC, ADIF F, ANEU, BMP, GFR #### [place] [id number] Platelets (Bld) [#/Vol] 269 150-450 10 3/mcL Normal 2019 [facility] ([place]) (72206) Comment: Performed By: #### CBC, ADIF F, ANEU, BMP, GFR #### [address] [address] RBC (Bld) [#/Vol] 4.01 4.10-5.30 10 6/mcL Low 01-22-2020 [facility] ([place]) (0000 0) Comment: Performed By: #### CBC, ADIF F, ANEU, BMP, GFR #### [address] [address] WBC (Bld) [#/Vol] 12.20 4.50-10.80 10 3/mcL High 01-22-2020 [facility] ([place]) (0000 0) Comment: Performed By: #### CBC, ADIF F, ANEU, BMP, GFR #### [address] [address] bmp on 2020-01-22 Calcium [Mass/Vol] 9.5 8.4-10.1 mg/dL Normal 01-22-2020 [facility] ([place]) (0000 0) Comment: Performed By: #### CBC, ADIF F, ANEU, BMP, GFR #### [place] [id number] Chloride [Moles/Vol] 106 98-110 mEq/L Normal 0 [facility] ([place]) (0000 0) Comment: Performed By: #### CBC, ADIF F, ANEU, BMP, GFR #### [address] [address] CO2 [Moles/Vol] 24 22-32 mEq/L Normal 01-22-2020 [facility] ([place]) (54346) Comment: Performed By: #### CBC, ADIF F, ANEU, BMP, GFR #### [address] [address] Creatinine [Mass/Vol] 0.76 0.50-1.20 mg/dL Normal 01-22-20 20 [facility] ([place]) (51744) Comment: Performed By: #### CBC, ADIF F, ANEU, BMP, GFR #### [address] [address] Electrolyte Balance 6.0 4.0-15.0 mEq/L Normal 01-22-2020 [facility] ([place]) (0000 0) Comment: Performed By: #### CBC, ADIF F, ANEU, BMP, GFR #### [address] [address] Glucose [Mass/Vol] 149 70-110 mg/dL High 01-22-2020 [facility] ([place]) (42757) Comment: Performed By: #### CBC, ADIF F, ANEU, BMP, GFR #### [address] [address] Potassium [Moles/Vol] 4.1 3.5-5.0 mEq/L Normal 01-22-20 [facility] ([place]) (0000 0) Comment: Performed By: #### CBC, ADIF F, ANEU, BMP, GFR #### [address] [address] Sodium [Moles/Vol] 136 136-145 mEq/L Normal 01-22-2020 [facility] ([place]) (06805) Comment: Performed By: #### CBC, ADIF F, ANEU, BMP, GFR #### [address] [address] Urea nitrogen [Mass/Vol] 12.0 8.0-22.0 mg/dL Normal 01-21 [facility] ([place]) (90071) Comment: Performed By: #### CBC, ADIF F, ANEU, BMP, GFR #### [address] [address] Urea nitrogen/Creatinine 15.8 10.0-22.0 ratio Normal 01-21 [facility] [Mass ratio] Foundat ion ([place]) (60005) Comment: Performed By: #### CBC, ADIF F, ANEU, BMP, GFR #### [address] [address] .neuabs on Neutrophils (Bld) 10.70 2.25-8.10 10 3/mcL High 01-22-2020 [facility] [#/Vol] [facility] ([place]) (39554) Comment: Performed By: #### CBC, ADIF F, ANEU, BMP, GFR #### [address] [address] .gfr on 2020-01-22 GFR Non- >60 Normal 01-21 [facility] ([place]) (82830) Comment: Result Comment: GFR Population mean for Afri can Angolan, Non- Americans Ages 20-29 = 116 mL/min/1.73 [...] CBC, ADIF F, ANEU, BMP, GFR #### [place] [id number] GFR >60 Normal 0 [facility] ([place]) (01681) Comment: Result Comment: GFR Population mean for Afri can Angolan, Non- Americans Ages 20-29 = 116 mL/min/1.73 [...] CBC, ADIF F, ANEU, BMP, GFR #### [address] [address] .auto diff on 01-21 Ammonia (P) [Mass/Vol] 0.30 0.09-1.40 10 3/mcL Normal 01-21-2 020 [facility] ([place]) (75941) Comment: Performed By: #### CBC, ADIF F, ANEU, BMP, GFR #### [address] [address] Basophils (Bld) 0.00 0.00-0.27 10 3/mcL Normal 01-22-2020 [facility] [#/Vol] [facility] ([place]) (14052) Comment: Performed By: #### CBC, ADIF F, ANEU, BMP, GFR #### [address] [address] Basophils/100 WBC (Bld) 0.3 0.0-2.5 % Normal 2019 [facility] ([place]) (0000 0) Comment: Performed By: #### CBC, ADIF F, ANEU, BMP, GFR #### [address] [address] Eosinophils (Bld) 0.00 0.00-0.65 10 3/mcL Normal 01-22-2020 [facility] [#/Vol] [facility] ([place]) (89085) Comment: Performed By: #### CBC, ADIF F, ANEU, BMP, GFR #### [address] [address] Eosinophils/100 WBC (Bld) 0.1 0.0-6.0 % Normal 01-12 0 [facility] ([place]) (0000 0) Comment: Performed By: #### CBC, ADIF F, ANEU, BMP, GFR #### [address] [address] Lymphocytes (Bld) 1.10 0.90-4.32 10 3/mcL Normal 01-22-2020 [facility] [#/Vol] [facility] ([place]) (14907) Comment: Performed By: #### CBC, ADIF F, ANEU, BMP, GFR #### [address] [address] Lymphocytes/100 WBC (Bld) 9.3 20.0-40.0 % Low - 0-2019 [facility] ([place]) (0000 0) Comment: Performed By: #### CBC, ADIF F, ANEU, BMP, GFR #### [address] [address] Monocytes/100 WBC (Bld) 2.2 2.0-13.0 % Normal 2019 [facility] ([place]) (0000 0) Comment: Performed By: #### CBC, ADIF F, ANEU, BMP, GFR #### [address] [address] Neutrophils/100 WBC (Bld) 88.1 50.0-75.0 % High 01-12 [facility] ([place]) (0000 0) Comment: Performed By: #### CBC, ADIF F, ANEU, BMP, GFR #### [address] [address] urinalysis with microscopy on 2020-01-21 Amorphous NONE Normal 01-21-2020 [facility] (80750) Comment: Performed By: #### [id number] ## ## [facility],[address] [place] [address] Bacteria LM.HPF (Urine sed) 3+ Normal [facility] [#/Area] [facility] ( 77326) Comment: Performed By: #### [id number] ## ## [facility],[address] [place] [address] Bilirubin [Mass/Vol] NEG NORMAL: NEGATIVE mg/dL Normal [facility] ospital (03750) Comment: Performed By: #### [id number] ## ## [facility],[address] [place] [address] Blood 10 NORMAL: NEGATIVE Abnormal 01-21-2020 [facility] (20429) Comment: Performed By: #### [id number] ## ## [facility],[address] [place] [address] Casts LM.LPF (Urine sed) NONE Normal 01-20 [facility] [#/Area] [facility] ( 08172) Comment: Performed By: #### [id number] ## ## [facility],[address] [place] [address] Clarity (U) sl.cloudy NORMAL: CLEAR Normal 01-21-2020 [facility] ( 21552) Comment: Performed By: #### [id number] ## ## [facility],[address] [place] [address] Color (U) p.yel NORMAL: YELLOW Normal 01-21-2020 [facility] (21368) Comment: Performed By: #### [id number] ## ## [facility],[address] [place] [address] Crystals LM Nom (Urine sed) NONE Normal [facility] ( 56598) Comment: Performed By: #### [id number] ## ## [facility],[address] [place] [address]9945 Epi Cells MANY Normal 01-21-2020 [facility] (48929) Comment: Performed By: #### [id number] ## ## [facility],[address] [place] [address] Glucose [Mass/Vol] NORM NORMAL: NORMAL Normal 2019 [facility] ( 86709) Comment: Performed By: #### [id number] ## ## [facility],[address] [place] [address] Ketone NEG NORMAL: NEGATIVE Normal 01-21-2020 [facility] (05881) Comment: Performed By: #### [id number] ## ## [facility],[address] [place] [address] Mucous NONE Normal 01-21-2020 [facility] (96417) Comment: Performed By: #### [id number] ## ## [facility],[address] [place] [address]783 Nitrite Ql (U) NEG NORMAL: NEGATIVE Normal 01-21-20 [facility] ( 08627) Comment: Performed By: #### [id number] ## ## [facility],[address] [place] [address] pH (Bld) 5 NORMAL: 5.0-8.0 Normal 01-21-2020 [facility] (79355) Comment: Performed By: #### [id number] ## ## [facility],[address] [place] [address] Protein (U) NEG NORMAL: NEGATIVE mg/dL Normal 01-21-2020 [facility] [Mass/Vol] [facility] (32025) Comment: Performed By: #### [id number] ## ## [facility],[address] [place] [address] Rbc 0-5 0-3 / hpf Normal 01-21-2020 [facility] (24343) Comment: Performed By: #### [id number] ## ## [facility],[address] [place] [address]644 Sp Gideon 1.020 NORMAL: 1.010-1.030 Normal 0 [facility] ( 81550) Comment: Performed By: #### [id number] ## ## [facility],[address] [place] [address]28 Specimen type Nom (Spec) UNSPECIFIED Normal [facility] ( 70955) Comment: Performed By: #### [id number] ## ## [facility],[address] [place] [address] URINALYSIS WITH MICROSCOPY Normal [facility] (71456) Comment: Result Comment: URINALYSIS Performed By: #### [id number] ## ## [facility],[address] [place] [address] Urobilinog NORM NORMAL: NORMAL Normal 01-21-2020 [facility] (75619) Comment: Performed By: #### [id number] ## ## [facility],[address] [place] [address] Wbc 1-5 0-5 / hpf Normal 01-21-2020 [facility] (51754) Comment: Performed By: #### [id number] ## ## [facility],[address] [place] [address] WBC (Bld) [#/Vol] NEG NORMAL: NEGATIVE 10*3/uL Normal 01-20 [facility] (96025) Comment: Result Comment: URINE MICROS COPIC Performed By: #### [id number] ## ## [facility],[address] [place] [address] 26032 Yeast LM Ql (Urine sed) NONE Normal 2019 [facility] (39329) Comment: Performed By: #### [id number] ## ## [facility],[address] [place] [address] 25754 troponin on 2020-01 Troponin I.cardiac <0.01 0.00 - 0.05 ng/mL Normal 0 [facility] [Mass/Vol] [facility] (93670) Comment: Result Comment: Elevated tro ponin (above [...] as heterophile antibodi es). Performed By: #### [id number] ## ## [facility],[address] [place] [address] tropi on 2020-01-21 Troponin I.cardiac <0.015 0.000-0.040 ng/mL Normal 0 [facility] [Mass/Vol] [place] [facility] [place] (22212) Comment: Result Comment: Troponin I r eference ranges (05/22/14): 0.00-0.040 ng/mL Negative an d non-diagnostic. >0.040 ng/mL Consistent with cardiac damage, increased clinical risk and possibility of myocardial in farction. Serial measurements, a rise & fall in test results, clinical histo ry, appropriate symptoms and/or ECG changes may help assess possibility of NM. *Other non-acute coronary sy ndrome conditions such as CHF, myoc arditis, pulmonary emboli, sepsis and cardiac surgery could result in myoc ardial damage and increased troponi n levels. Performed By: #### TROPI ### # [place] [address] serum qual on 2020-01-21 EXTERNAL QC DONE? YES Normal 01-21-2020 [facility] (41689) Comment: Performed By: #### [id number] ## ## [facility],[address] [place] [address] INTERNAL QC PASS Normal 01-21-2020 [facility] (24286) Comment: Performed By: #### [id number] ## ## [facility],[address] [place], [place] [id number] SER NEGATIVE NEGATIVE Normal 01-21-2020 [facility] (76386) Comment: Performed By: #### [id number] ## ## [facility],[address] [place] [address] d-dimer, quantitative on 2020-01-21 D-DIMER QUANT 256 0 - 230 ng/ml High 01-21-2020 [facility] (15126) Comment: Performed By: #### [id number] ## ## [facility],[address] [place] [address] D-DIMER, QUANTITATIVE Normal 01-21-20 20 [facility] (59544) Comment: Result Comment: QUANT D-DIME R Performed By: #### [id number] ## ## [facility],[address] [place], [place] [id number] ct brain w/o contrast on 2020-01-21 CT BRAIN W/O [facility] Normal 0 [facility] [address] [place] [address] (44312) Patient: SALLY MCGREGOR Phone#: : [phone] Age: 39 Gender: F Pt. Type: ER Account: [id number] Location: 052 Ordering: DR. ANA ALCANTAR Exam Date: 01/20/202023:41 Family Phys: ISABEL ARIAS Charge Code: 106164 Physician: [place] Order #: [id number] DLP Dose#: [id number] PROCEDURE: CT BRAIN WITHOUT CONTRAST COMPARISON: [facility], CT, BRAIN W/O CON, 01/29/2017, 22:39. [...] 39 Gender: F Pt. Type: ER Account: [id number] Location: 052 Ordering: DR. ANA ALCANTAR Exam Date: 01/20/2020/23:41 Family Phys: ISABEL ARIAS Charge Code: [id number] Physician: [place] Order #: [id number] DLP Dose#: [id number] Approved by: Kelsey Mae MD on 01/21/2020 at 18:04 cmp with egfr on 31-01-09 Age - Reported 39 years Normal 01-21-2020 [facility] (53669) Comment: Performed By: #### [id number] ## ## [facility],[address] [place] [address] Albumin [Mass/Vol] 4.3 3.4 - 4.8 g/dL Normal 01-21-2020 [facility] ( 67364) Comment: Performed By: #### [id number] ## ## [facility],[address] [place] [address] 95634 Albumin/Globulin [Mass 1.5 0.9 - 1.6 {ratio} Normal 020 [facility]] [facility] (30001) Comment: Performed By: #### [id number] ## ## [facility],[address] [place] [address] 26692 ALK PHOS 71 38 - 126 U/L Normal 01-21-2020 [facility] (40129) Comment: Performed By: #### [id number] ## ## [facility],[address] [place] [address] 92376 ALT/SGPT 11 8 - 35 U/L Normal 01-21-2020 [facility] (73640) Comment: Performed By: #### [id number] ## ## [facility],[address] [place] [address] 69503 Anion gap [Moles/Vol] 12 10 - 20 mmol/L Normal 01-21-20 [facility] ( 68269) Comment: Performed By: #### [id number] ## ## [facility],[address] [place] [address] 85949 AST/SGOT 12 13 - 39 U/L Low 01-21-2020 [facility] (09246) Comment: Performed By: #### [id number] ## ## [facility],[address] [place] [address] 49842 B/C RATIO 19 0 - 30 ratio Normal 01-21-2020 [facility] (75297) Comment: Performed By: #### [id number] ## ## [facility] [address] Bilirubin [Mass/Vol] 0.3 0.0 - 1.5 mg/dl Normal 0 [facility] ( 21344) Comment: Performed By: #### [id number] ## ## [facility],[address] [place] [address] 33367 Calcium [Mass/Vol] 9.2 8.6 - 10.2 mg/dl Normal 01-21-2020 [facility] ( 12555) Comment: Performed By: #### [id number] ## ## [facility],[address] [place] [address] 19866 Chloride [Moles/Vol] 102 98 - 107 mmol/L Normal 0 [facility] ( 41599) Comment: Performed By: #### [id number] ## ## [facility],[address] [place] [address] 07978 CO2 [Moles/Vol] 25.6 21.0 - 31.0 mmol/L Normal 01-21-2020 [facility] ( 20439) Comment: Performed By: #### [id number] ## ## [facility],[address] [place] [address] 03885 Creatinine [Mass/Vol] 1.1 0.6 - 1.2 mg/dl Normal 01-21-20 20 [facility] ( 03104) Comment: Performed By: #### [id number] ## ## [facility] [facility],[address] [place] [address] 52416 GFR/1.73 sq M >60 60 - 999 mL/min/{1.73_m2} Normal 0 [facility] non-blacks MDRD (000 00) (S/P/Bld) [Vol rate/Area] [...] OF AGE AND OLDER. Performed By: #### [id number] ## ## [facility],[address] [place] [address] 96205 GFR/1.73 sq M predicted among Normal 01-21-2020 [facility] non-blacks MDRD (S/P/Bld) [Vol Hospital (35364) rate/Area] Comment: Result Comment: COMPREHENSIV E METABOLIC PANEL Performed By: #### [id number] ## ## [facility],[address] [place] [address] 75820 GFR/1.73 sq M predicted 55 60 - 999 ML/MINUTE Low 2019 [facility] among non-blacks MDRD Hospital (79193) (S/P/Bld) [Vol rate/Area] Comment: Performed By: #### [id number] ## ## [facility],[address] [place] [address] 82239 Globulin (S) [Mass/Vol] 2.9 1.5 - 3.8 G/DL Normal 2019 [facility] ( 87154) Comment: Performed By: #### [id number] ## ## [facility],[address] [place] [address] 24605 Glucose [Mass/Vol] 100 74 - 106 mg/dl Normal 01-21-2020 [facility] ( 78605) Comment: Performed By: #### [id number] ## ## [facility],[address] [place] [address] 38713 Potassium [Moles/Vol] 3.6 3.5 - 5.1 mmol/L Normal 01-21-20 20 [facility] ( 30999) Comment: Performed By: #### [id number] ## ## [facility],[address] [place] [address] 10891 Protein [Mass/Vol] 7.2 6.4 - 8.3 g/dl Normal 01-21-2020 [facility] ( 26046) Comment: Performed By: #### [id number] ## ## [facility],[address] [place] [address] 11608 Sodium [Moles/Vol] 136 136 - 145 mmol/l Normal 01-21-2020 [facility] ( 85984) Comment: Performed By: #### [id number] ## ## [facility],[address] [place] [address] 04517 Urea nitrogen [Mass/Vol] 21 6 - 20 mg/dl High 01-20 [facility] ( 59585) Comment: Performed By: #### [id number] ## ## [facility],[address] [place] [address] 57159 chest 2 views on 31-01-09 CHEST 2 VIEWS [facility] Normal 01-21-20 [facility] ospital [address] [place] [address] 65389 ([id number]) Patient: SALLY MCGREGOR Phone#: : 1980 Age: 39 Gender: F Pt. Type: ER Account: [id number] Location: 052 Ordering: DR. ANA ALCANTAR Exam Date: 01/20/2020/23:45 Family Phys: ISABEL ARIAS Charge Code: 144630 Physician: [place] Order #: [id number] DLP Dose#: PROCEDURE: X-RAY CHEST 2 VIEWS COMPARISON: [facility], , CHEST 2 VIEWS, 11/25/2019, 0:08. [...] Erythrocyte distribution 13.6 11.5-15.5 % Normal 01-20 [facility] width (RBC) [Ratio] [facility] ([place]) (47833) Comment: Performed By: #### CBC, ADIF F, ANEU, BMP, GFR #### [address] [address] Hematocrit (Bld) [Volume 35.6 34.0-46.0 % Normal 01-20 [facility] fraction] ([place]) (0000 0) Comment: Performed By: #### CBC, ADIF F, ANEU, BMP, GFR #### [address] [address] Hemoglobin (Bld) 11.4 12.0-16.0 G/dL Low 01-21-2020 [facility] [Mass/Vol] ([place]) (000 00) Comment: Performed By: #### CBC, ADIF F, ANEU, BMP, GFR #### [address] [address] MCH (RBC) [Entitic mass] 29.5 27.0-33.0 pg Normal 01-20 [facility] ([place]) (0000 0) Comment: Performed By: #### CBC, ADIF F, ANEU, BMP, GFR #### [address] [address] MCHC (RBC) [Mass/Vol] 32.2 32.0-36.0 G/dL Normal 01-21-20 [facility] ([place]) (0000 0) Comment: Performed By: #### CBC, ADIF F, ANEU, BMP, GFR #### [address] [address] MCV (RBC) [Entitic vol] 91.7 80.0-99.0 fL Normal 2019 [facility] ([place]) (0000 0) Comment: Performed By: #### CBC, ADIF F, ANEU, BMP, GFR #### [place] [address] Platelet mean volume 8.6 6.6-10.5 fL Normal 0 [facility] (Bld) [Entitic vol] ([place]) (52997) Comment: Performed By: #### CBC, ADIF F, ANEU, BMP, GFR #### [place] [address] Platelets (Bld) [#/Vol] 250 150-450 10 3/mcL Normal 2019 [facility] ([place]) (72965) Comment: Performed By: #### CBC, ADIF F, ANEU, BMP, GFR #### [place] [address] RBC (Bld) [#/Vol] 3.88 4.10-5.30 10 6/mcL Low 01-21-2020 A [facility] ([place]) (0000 0) Comment: Performed By: #### CBC, ADIF F, ANEU, BMP, GFR #### [place] [address] WBC (Bld) [#/Vol] 6.20 4.50-10.80 10 3/mcL Normal 01-21-2020 [facility] ([place]) (38036) Comment: Performed By: #### CBC, ADIF F, ANEU, BMP, GFR #### [place] [address] cbc + diff on 01-20 Basophils (Bld) 0.10 0.00 - 0.10 x10EE3/UL Normal 01-21-2020 Leland Johnston [#/Vol] [facility] (80608) Comment: Performed By: #### [id number] ## ## Mello Johnston [facility],[address] [place] [address] 92284 Basophils/100 WBC (Bld) 1.1 0.0 - 2.0 % Normal 2019 [facility] ( 05116) Comment: Performed By: #### [id number] ## ## [facility],[address] [place] [address] 50340 CBC + DIFF Normal 01-21-2020 [facility] (63645) Comment: Result Comment: CBC-COMPLETE BLOOD COUNT Performed By: #### [id number] ## ## [facility],[address] [place], [place] [id number] Eosinophils (Bld) 0.40 0.00 - 0.50 x10EE3/UL Normal 01-21-2020 [facility] [#/Vol] [facility] (25269) Comment: Performed By: #### [id number] ## ## [place] [id number] Eosinophils/100 WBC (Bld) 5.5 0.0 - 7.0 % Normal [facility] ( 90351) Comment: Performed By: #### [id number] ## ## [address] [address] Erythrocyte distribution 13.5 12.0 - 15.6 % Normal [facility] width (RBC) [Ratio] [facility] (27385) Comment: Performed By: #### [id number] ## ## [address] [address] Hematocrit (Bld) [Volume 33.8 34.0 - 46.0 % Low [facility] fraction] [facility] ( 23464) Comment: Performed By: #### [id number] ## ## [address] [address] Hemoglobin (Bld) 11.7 12.0 - 16.0 g/dl Low 01-21-2020 [facility] [Mass/Vol] [facility] (60740) Comment: Performed By: #### [id number] ## ## [address],[place] [address] Lymphocytes (Bld) 2.30 0.80 - 2.80 x10EE3/UL Normal 01-21-2020 [facility] [#/Vol] [facility] (91096) Comment: Performed By: #### [id number] ## ## [place] [id number] Lymphocytes/100 WBC (Bld) 30.4 20.0 - 45.0 % Normal [facility] ( 50227) Comment: Performed By: #### [id number] ## ## [address] [address] MANUAL DIFF N/A Normal 01-21-2020 [facility] (50648) Comment: Performed By: #### [id number] ## ## [address] [address] MCH (RBC) [Entitic mass] 31 27 - 33 pg Normal 01-20 [facility] ( 63305) Comment: Performed By: #### [id number] ## ## [address] [address] MCHC (RBC) [Mass/Vol] 35 32 - 36 X10 3 Normal 01-21-20 20 [facility] ( 96627) Comment: Performed By: #### [id number] ## ## [address] [address] MCV (RBC) [Entitic vol] 88 80 - 99 fl Normal 2019 [facility] ( 05604) Comment: Performed By: #### [id number] ## ## [address] [address] Monocytes (Bld) 0.50 0.20 - 1.00 x10EE3/UL Normal 01-21-[address] [facility] [#/Vol] [facility] (13802) Comment: Performed By: #### [id number] ## ## [facility],[address] [place] [address] 23641 MONOS % 6.5 0.0 - 10.0 % Normal 01-21-2020 [facility] (66558) Comment: Performed By: #### [id number] ## ## [facility],[address] [place] [address] 11036 Morphology Adrian (Bld) [Interp] N/A Normal 01-21-2020 [facility] ( 02800) Comment: Performed By: #### [id number] ## ## [facility],[address] [place] [address] 66171 Neutrophils (Bld) 4.30 1.50 - 7.10 x10EE3/UL Normal 01-21-2020 [facility] [#/Vol] [facility] (70597) Comment: Performed By: #### [id number] ## ## [facility],[address] [place] [address] 98393 Neutrophils/100 WBC (Bld) 56.5 46.0 - 76.0 % Normal [facility] ( 04696) Comment: Performed By: #### [id number] ## ## [facility],[address] [place] [address] 05021 Platelet mean volume 8.3 6.6 - 10.5 fl Normal 01-21-20 20 [facility] (Bld) [Entitic vol] [facility] (08735) Comment: Result Comment: AUTOMATED DI FFERENTIAL Performed By: #### [id number] ## ## [facility],[address] [place] [address] 91855 Platelets (Bld) 298 150 - 450 x10EE3/UL Normal 01-21-2020 [facility] [#/Vol] [facility] (96542) Comment: Performed By: #### [id number] ## ## [facility],[address] [place] [address] 15047 RBC (Bld) [#/Vol] 3.82 4.10 - 5.30 x 10EE6/UL Low 0 [facility] ( 61776) Comment: Performed By: #### [id number] ## ## [facility],[address] [place] [address] 92894 WBC (Bld) [#/Vol] 7.6 4.5 - 10.8 x 10EE3/UL Normal 01-21-2020 [facility] ( 63953) Comment: Performed By: #### [id number] ## ## [facility],[address] [place] [address] 66933 bmp on 2020-01-21 Creatinine [Mass/Vol] 0.96 0.50-1.20 mg/dL Normal 01-21-20 20 [facility] ([place]) (75637) Comment: Performed By: #### CBC, ADIF F, ANEU, BMP, GFR #### [address] [address] Urea nitrogen/Creatinine 18.8 10.0-22.0 ratio Normal 01-20 [facility] [Mass ratio] [facility] ([place]) (52529) Comment: Performed By: #### CBC, ADIF F, ANEU, BMP, GFR #### [address] [address] Calcium [Mass/Vol] 8.7 8.4-10.1 mg/dL Normal 01-21-2020 [facility] ([place]) (0000 0) Comment: Performed By: #### CBC, ADIF F, ANEU, BMP, GFR #### [address] [address] Chloride [Moles/Vol] 108 98-110 mEq/L Normal 0 [facility] ([place]) (0000 0) Comment: Performed By: #### CBC, ADIF F, ANEU, BMP, GFR #### [address] [address] CO2 [Moles/Vol] 26 22-32 mEq/L Normal 01-21-2020 [facility] ([place]) (73018) Comment: Performed By: #### CBC, ADIF F, ANEU, BMP, GFR #### [place] [address] Electrolyte Balance 4.0 4.0-15.0 mEq/L Normal 01-21-2020 [facility] ([place]) (0000 0) Comment: Performed By: #### CBC, ADIF F, ANEU, BMP, GFR #### [place] [id number] Glucose [Mass/Vol] 85 70-110 mg/dL Normal 01-21-2020 [facility] ([place]) (54549) Comment: Performed By: #### CBC, ADIF F, ANEU, BMP, GFR #### [place] [address] Potassium [Moles/Vol] 4.1 3.5-5.0 mEq/L Normal 01-21-20 [facility]) (0000 0) Comment: Performed By: #### CBC, ADIF F, ANEU, BMP, GFR #### [place] [address] Sodium [Moles/Vol] 138 136-145 mEq/L Normal 01-21-2020 [facility] ([place]) (07279) Comment: Performed By: #### CBC, ADIF F, ANEU, BMP, GFR #### [place] [address] Urea nitrogen [Mass/Vol] 18.0 8.0-22.0 mg/dL Normal 01-20 [facility] ([place]) (46228) Comment: Performed By: #### CBC, ADIF F, ANEU, BMP, GFR #### [address] [address] .neuabs on Neutrophils (Bld) 3.50 2.25-8.10 10 3/mcL Normal 01-21-2020 [facility] [#/Vol] [facility] ([place]) (83821) Comment: Performed By: #### CBC, ADIF F, ANEU, BMP, GFR #### [address] [address] .gfr on 2020-01-21 GFR Non- >60 Normal 01-20 [facility] ([place]) (45148) Comment: Result Comment: GFR Population mean for Afri can Angolan, Non- Americans Ages 20-29 = 116 mL/min/1.73 [...] CBC, ADIF F, ANEU, BMP, GFR #### [address] [address] GFR >60 Normal 0 [facility] ([place]) (61625) Comment: Result Comment: GFR Population mean for Afri can Angolan, Non- Americans Ages 20-29 = 116 mL/min/1.73 [...] CBC, ADIF F, ANEU, BMP, GFR #### [address] [address] .auto diff on 01-20 Ammonia (P) [Mass/Vol] 0.40 0.09-1.40 10 3/mcL Normal 020 [facility] ([place]) (71953) Comment: Performed By: #### CBC, ADIF F, ANEU, BMP, GFR #### [address] [address] Basophils (Bld) 0.00 0.00-0.27 10 3/mcL Normal 01-21-2020 [facility] [#/Vol] [facility] ([place]) (59427) Comment: Performed By: #### CBC, ADIF F, ANEU, BMP, GFR #### [address] [address] Basophils/100 WBC (Bld) 0.5 0.0-2.5 % Normal 2019 [facility] ([place]) (0000 0) Comment: Performed By: #### CBC, ADIF F, ANEU, BMP, GFR #### [address] [address] Eosinophils (Bld) 0.30 0.00-0.65 10 3/mcL Normal 01-21-2020 [facility] [#/Vol] [facility] ([place]) (69021) Comment: Performed By: #### CBC, ADIF F, ANEU, BMP, GFR #### [address] [address] Eosinophils/100 WBC (Bld) 5.4 0.0-6.0 % Normal [facility] ([place]) (0000 0) Comment: Performed By: #### CBC, ADIF F, ANEU, BMP, GFR #### [address] [address] Lymphocytes (Bld) 2.00 0.90-4.32 10 3/mcL Normal 01-21-2020 [facility] [#/Vol] [facility] ([place]) (37036) Comment: Performed By: #### CBC, ADIF F, ANEU, BMP, GFR #### [address] [address] Lymphocytes/100 WBC (Bld) 32.4 20.0-40.0 % Normal 05-0 [facility] ([place]) (20579) Comment: Performed By: #### CBC, ADIF F, ANEU, BMP, GFR #### [address] [address] Monocytes/100 WBC (Bld) 6.1 2.0-13.0 % Normal 2019 [facility] ([place]) (0000 0) Comment: Performed By: #### CBC, ADIF F, ANEU, BMP, GFR #### [facility] [address] [place] [address] Neutrophils/100 WBC (Bld) 55.6 50.0-75.0 % Normal 050 [facility] ([place]) (63817) Comment: Performed By: #### CBC, ADIF F, ANEU, BMP, GFR #### [facility] [address] [place] [address]224 cnpn on 2020-01-20 [facility] Normal 01-[facility]-[address] [place] [facility] SALLY MCGREGOR ([id number]) 1980 [place] Date Time Provider Department (51530) 01/20/20 MARCELINO MEJIA [facility] During your visit today, we recorded the following informati on about you: Christopher Carcamo RN 01/20/2020 11:54 AM Signed Patient asking if Chaz Stroud, would sent AB Rx to [facility], for her bad tooth? Her dentist in [place] is not open. Has an appt with a dentist in [place] on . Has a wound on tongue [...] (METRONIDAZOLE HCL) 03/11/2010 12 - Shortness of Wisner th IBUPROFEN 06/18/2016 8 - GI Upset [...] 01/20/20 progress on 2020-01 PROGRESS HNO ID: [id number] Normal 01-16-2020 [facility] Author: Isabel Mata ([id number]) Service: ? Author Type: Physician Commercial Counsel Type: Progress Notes Filed: 01/16/2020 1:43 PM [...] She c/o of daily. Attempted to call [place] [facility] who had 1 visit with [...] testing. Recommend that she discuss with her machine finisher. In mean time will order stress testing [...] on 2020-01-16 MORENA Telephone (FAMPWS) Normal 01-16-[address] [place] [facility] SALLY MCGREGOR ([id number]) 1980 [facility] Time Provider Department (50993) 01/16/20 ISABEL ARIAS) RAMA During your visit [...] and/or ibuprofen for pain. Follow-up with her [facility] care physician within the next [...] Chest pain This note was generated with Woofound dictation software. It m ay contain incorrect [...] (METRONIDAZOLE HCL) 03/11/2010 12 - Shortness of Wisner th IBUPROFEN 06/18/2016 8 - GI Upset [...] Encounter Status:Closed by ISABEL WARE on [facility]/16[facility] Normal 01-16-2020 [place] [facility] SALLY MCGREGOR ([id number]) 1980 [facility] Time Provider Department ([id number]) 01/16/20 ISABEL ARIAS) RAMA During your visit [...] (METRONIDAZOLE HCL) 03/11/2010 12 - Shortness of Wisner th IBUPROFEN 06/18/2016 8 - GI Upset [...] on 2020-01-11 CNPN Telephone (FAMPWS) Normal 01-11-2020 [place] [facility] SALLY MCGREGOR ([id number]) 1980 F [place] Date Time Provider Department (11068) 01/11/20 MARCELINO MEJIA During your visit today, [...] (METRONIDAZOLE HCL) 03/11/2010 12 - Shortness of Wisner th IBUPROFEN 06/18/2016 8 - GI Upset PENICILLINS 12/07/2009 2 - Rash PREDNISONE 06/18/2016 14 - Other: See Comments Comments: makes agitated and mean Date Reviewed: 01/02/2020 Reviewed by: Ashley Lehman Ma - Fully Assessed Reason for Visit: Patient Question [4090] Reason For Visit History Recorded Prescriptions as [...] on 2020-01-09 CNPN Telephone (FAMPWS) Normal 01-09-[address] [place] 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 See if she is willing to [...] by ISABEL WARE on 01/09/20 CNPN Telephone ([facility]) Normal 01-09-[address] [place] [facility] SALLY MCGREGOR ([id number]) 1980 [facility] Date Time Provider Department (00650) 01/09/20 MARCELINO MEJIA During your visit today, [...] she called because she's not really thinking [facility]. Marcelino Mejia MD 01/09/2020 1:31 PM Signed [...] flexeril. Monica t says she cannot take Wilcox because she is on ok Seroquel and [...] dentist and she said no dentist in [facility] can see her because of her insurance . She tried [place] because they accepted her insurance but they [...] seen by ER or UC, then at [facility] they can see/check for signs of worsening [...] she has called every dentist office in [place] and now [place] and no one takes her insurance. She said she called her insurance and they told her the only one was the one in [place]. I told her if her infection is that bad she needs to go back to ER for further evaluation. Patient then just keep saying I have no way of getting there; no family can take her; she has no money to pay to get there. Patient ended call. I did call Dr. Evans's office oral surgeon [phone] and they are open from 8-3 after day to see patient's and [facility]. They were currently closed but wanting to find out if they accept her insurance. ISABEL ARIAS PA-C 01/10/2020 7:18 AM Signed Noted. Allergies As of Date: 01/09/2020 Noted Allergy Reaction ASA (SALICYLATES) 01/27/2011 14 - Other: See Comments Comments: ulcers CONTRAST DYE (IODINE) 05/17/2008 12 - Shortness of Breath FLAGYL (METRONIDAZOLE HCL) 03/11/2010 12 - Shortness of Wisner th IBUPROFEN 06/18/2016 8 - GI Upset [...] * * *Final Report* * * Normal [facility] AP/LAT DATE OF EXAM: Jan 06 2020 12:58PM [place] ([id number]) WOX 5262 - XR THORACIC 2V AP/LAT / PROCEDURE REASON: Fall, initial encounter * * * * Physician Interpretation * * * * EXAM TITLE: XR THORACIC 2V AP/LAT DATE: 01/06/2020 COMPARISON: None. CLINICAL INDICATION/HISTORY: Back pain status post fall in [facility]. TECHNIQUE: AP and lateral views of the thoracic spine are pr esented. FINDINGS: No fractures or subluxations are noted. The disc spaces are well preserved. There is no paraspinal mass or delon destructive process. IMPRESSION: Negative thoracic spine. Bottle Label Inspector: PSCB Transcribe Date/Time: Jan 06 2020 1:02P Dictated by : NIDA VILLALOBOS MD This examination was interpreted and the report reviewed and electronically signed by: NIDA VILLALOBOS MD on Jan 06 2020 1:07PM EST [id number] xr cervical 3v ap/lat/odon on 2020-01-06 XR CERVICAL 3V * * *Final Report* * * Normal [facility] AP/LAT/ODON DATE OF EXAM: Jan 06 2020 12:58PM [place] WOX 5309 - XR CERVICAL 3V AP/LAT/ODON / 3 (65791) PROCEDURE REASON: Fall, initial encounter * * [...] tissues are normal. IMPRESSION: Negative cervical spine. Bottle Label Inspector: PSCB Transcribe Date/Time: Jan 06 2020 1:00P Dictated by : NIDA VILLALOBOS MD This examination was interpreted and the report reviewed and electronically signed by: NIDA VILLALOBOS MD on Jan 06 2020 1:04PM EST [id number] progress on 2019-12 PROGRESS HNO ID: [id number] Normal 01-06-2020 [facility] Author: Vianey Sanchez (Tech) [place] ([id number]) Service: ? Author Type: Staffing Operations Manager Type: Progress Notes Filed: 01/06/2020 12:58 PM [...] 12:43 PM cnpn on 2020-01-06 [facility] Normal 01-06-[address] [place] [facility] SALLY MCGREGOR ([id number]) 1980 [facility] Date Time Provider Department (99351) 01/06/20 MARCELINO MEJIA During your visit today, we recorded the following informati on about you: Deepa Salvador, EMISSIONS INSPECTOR, EMISSIONS INSPECTOR 01/06/2020 11:41 AM Signed Pt calls states fell a day ago and went to [facility] they gave h er 10 [...] encounter [W19.XXXA] Order(s):XR THORACIC LIMITED 2V AP/LAT [5086996] Order #: [id number] FUTURE XR CERV INJURY 3V AP/LAT/ODON [[id number]] Order #: [id number] FUTURE Prescriptions as of 01/06/2020 Sig: SERTRALINE [...] Status:Closed by BRANDEN SANDERS MA on 01/06/20 [facility] Normal 01-06-[address] [place] [facility] SALLY MCGREGOR ([id number]) 1980 [facility] Date Time Provider Department (69634) 01/06/20 MARCELINO MEJIA [facility] During your visit today, we recorded [...] (METRONIDAZOLE HCL) 03/11/2010 12 - Shortness of Wisner th IBUPROFEN 06/18/2016 8 - GI Upset [...] 01/06/20 progress on 2019-12 PROGRESS HNO ID: [id number] Normal 01-05-2020 [facility] Author: Isabel Romero) Hugo Mata ([id number]) Service: ? Author Type: Physician Commercial Counsel Type: Progress Notes Filed: 01/05/2020 8:07 AM [...] to cancel due to no r kostas. [facility] has appointment rescheduled on january 19. [...] minutes progress on 2019-12 PROGRESS HNO ID: [id number] Normal 01-02-2020 [facility] Author: Marie Mary) [facility] ([id number]) Service: ? Author Type: Nurse Practitioner Type: [...] Benign liver cyst 05/24/2010 CT scan at [facility] 11/2009 and 04/2010 showe 4 mm increase in size . No pain. No elevated LFTs on 03/11/2010. - Calculus of kidney 05/17/[address] Nicolas: Hospitalized age 20, and again later -- no procedures so far ([facility], [facility], [place], 1995 [facility]) - Dysmenorrhea - Impaired fasting [...] Approx. 3 cigarettes daily-1 pack every w [place] Substance Use Topics - Alcohol use: Yes [...] 2020-01-02 [facility] Office Visit ([facility]) Normal 01-02-20 [place] SALLY Martinez ([id number]) 1980 F [place] Date Time Provider Department (83607) 01/02/20 2:45 PM MARIE SANTAMARIA (JAKI) [facility] [...] Benign liver cyst 05/24/2010 CT scan at [facility] 11/2009 and 04/2010 showe 4 mm increase in size . No pain. No elevated LFTs on 03/11/2010. - Calculus of kidney 05/17/[address] Nicolas: Hospitalized age 20, a nd again later -- no procedures so far ([facility], [place], 1995 [facility]) - Dysmenorrhea - Impaired fasting [...] Approx. 3 cigarettes daily-1 pack every w [place] Substance Use Topics - Alcohol use: Yes [...] MG CAPSULE Agrees to plan Marie Santamaria APRN.HEAD GIRLS GOLF COACH Referring Provider: SELF [200] Allergies As of Date: 01/02/2020 Noted Allergy Reaction ASA (SALICYLATES) 01/27/2011 14 - Other: See Comments Comments: ulcers CONTRAST DYE (IODINE) 05/17/2008 12 - Shortness of Breath FLAGYL (METRONIDAZOLE HCL) 03/11/2010 12 - Shortness of Wisner th IBUPROFEN 06/18/2016 8 - GI Upset [...] SANTAMARIA CNP on 01/02/20 cnpn on 2019-12-23 [facility] Telephone (FAMPWS) Normal 12-23-[address] [place] [facility] SALLY MCGREGOR ([id number]) 1980 [facility] Date Time Provider Department (97041) 12/23/19 [facility] your visit today, we recorded [...] not helping cough. Please advise and call [phone]. WENDI ARIAS PA-C 12/23/2019 1:02 PM Signed [...] * *Final Report* * * Normal 12-21 [facility] FRONTAL/LAT DATE OF EXAM: Dec 22 2019 9:28AM [place] WOX 5291 - XR CHEST 2V FRONTAL/LAT / (87168) PROCEDURE REASON: multiple diagnoses * * * [...] clips noted. IMPRESSION: No acute radiographic abnormality. Bottle Label Inspector: PSCB Transcribe Date/Time: Dec 22 2019 9:29A Dictated by : NIDA VILLALOBOS MD This examination was interpreted and the report reviewed and electronically signed by: NIDA VILLALOBOS MD on Dec 22 2019 9:51AM EST [id number] progress on 2019-12 PROGRESS HNO ID: [id number] Normal 12-22-2019 [facility] Author: Madeline Joyner (Rt) Vianey Luo Mata ([id number]) Service: ? Author Type: Staffing Operations Manager Type: Progress Notes Filed: 12/22/2019 9:28 AM [...] 22, 2019 9:18 AM cnpn on 2019[facility]12-22 [facility]) Normal 12-22-[address] [place] [facility] SALLY MCGREGOR ([id number]) 1980 [facility] Date Time Provider Department (52546) 12/22/19 ISABEL ARIAS) RAMA During your visit today, we recorded the following informati on about you: ISABEL ARIAS PA-C 12/22/2019 9:56 AM Signed Let patient know that xray is negative. Recommend cont inuing as we discussed yesterday. Isabel Arias PA-C Ashley Mcfarland Industrial Technologist 12/22/2019 10:42 AM Signed Patient notified and verbalized understanding Ashley Mcfarland Industrial Technologist Allergies As of Date: 12/22/2019 Noted Allergy Reaction ASA (SALICYLATES) 01/27/2011 14 - Other: See Comments Comments: ulcers CONTRAST DYE (IODINE) 05/17/2008 12 - Shortness of Breath FLAGYL (METRONIDAZOLE HCL) 03/11/2010 12 - Shortness of Wisner th IBUPROFEN 06/18/2016 8 - GI Upset [...] 12/22/19 progress on 2019-12 PROGRESS HNO ID: [id number] Normal 12-21-2019 [facility] Author: Isabel Romero) Hugo Mata ([id number]) Service: ? Author Type: Physician Commercial Counsel Type: Progress Notes Filed: 12/21/2019 12:48 PM Note Text: DISTANCE HEALTH VISIT This Team Access Model visit is a phone encounter. It requir ed patient-provider interaction for the medical decision making as documented below. No video was used for evaluation of this patient. Patient consents to visit. Patient location: [place] Sally Mcgregor is a 39 year old [...] SYSTEMS: As noted in HPI PHYSICAL EXAMINATION: [facility] 08/10/2006 Deferred physical exam as visit [...] on 2019-12-15 CNPN Telephone (FAMPWS) Normal 12-15-[address] [place] [facility] SALLY MCGREGOR ([id number]) 1980 [facility] Date Time Provider Department (30294) 12/15/19 ISABEL ARIAS (MAYA) RAMA During your [...] and still makes her nauseated. Patient uses [facility] for her pharmacy. Please advise ISABEL ARIAS [...] on 2019-12-14 CNPN Telephone (INTMWS) Normal 12-14-[address] [place] [facility] SALLY MCGREGOR ([id number]) 1980 [place] Date Time Provider Department (99480) 12/14/19 ISABEL ARIAS) INTMWS During your visit today, we recorded the following informati on about you: Gale Fuentes LPN 12/14/2019 10:15 AM Signed Patient took 1 dose of Robitussin AC, di d help suppress cough but developed an itchy/rash. Asking if something else can be called in to pha acy. Patient uses [facility]. Please notify Patient. Gale ARIAS PA-C 12/14/2019 [...] on 12/14/19 CNPN Telephone (FAMPWS) Normal 12-14-[address] [place] [facility] SALLY MCGREGOR ([id number]) 1980 [facility] Date Time Provider Department (31000) 12/14/19 ISABEL ARIAS) RAMA During your visit [...] 12/14/19 progress on 2019-11 PROGRESS HNO ID: [id number] Normal 12-13-2019 [facility] Author: Isabel Romero) Hugo Mata ([id number]) Service: ? Author Type: Physician Commercial Counsel Type: Progress Notes Filed: 12/13/2019 10:36 AM [...] Benign liver cyst 05/24/2010 CT scan at [facility] 11/2009 and 04/2010 showe 4 mm increase in size . No pain. No elevated LFTs on 03/11/2010. - Calculus of kidney 05/17/[address] Nicolas: Hospitalized age 20, and again later -- no procedures so far ([facility], [facility], 1995 [facility]) - Dysmenorrhea - Impaired fasting [...] Approx. 3 cigarettes daily-1 pack every w [place] Substance Use Topics - Alcohol use: Yes [...] (COVID-19). emergency report on 2019-11-26 [facility] Normal 11-25 [facility] ospital EMERGENCY ROOM REPORT (32516) NAME ACCOUNT SEX AGE ADMIT DISCHARGE PT MED. RECORD# NUMBER DATE DATE TYPE SAM, [id number] F 39 11/24/19 11/25/19 3 SALLY [id number] ROOM: ER DATE OF : 1980 DICTATING [...] Ana Alcantar MD 11/25/19 05:37 JOB #: [id number] Transcribed By: dotty 11/25/19 22:11 Electronically signed by: Jennifer Perez MD 11/25/19 22:39 Page 2 of 2 SALLY MCGREGOR Emergency Room Report urinalysis with microscopy on 2019-11-25 Amorphous NONE Normal 11-25-2019 [facility] (60377) Comment: Performed By: #### [id number] ## ## [facility],[address] [place] [address] 21833 Bacteria LM.HPF (Urine sed) 4+ Normal [facility] [#/Area] [facility] ( 51469) Comment: Performed By: #### [id number] ## ## [facility],[address] [place] [address] 20844 Bilirubin [Mass/Vol] NEG NORMAL: NEGATIVE mg/dL Normal [facility] ospital (69440) Comment: Performed By: #### [id number] ## ## [facility],[address] [place] [address] 95498 Blood 10 NORMAL: NEGATIVE Abnormal 11-25-2019 [facility] (51952) Comment: Performed By: #### [id number] ## ## [facility],[address] [place], [place] [id number] Casts LM.LPF (Urine sed) NONE Normal 11-24 [facility] [#/Area] [facility] ( 32081) Comment: Performed By: #### [id number] ## ## [facility],[address] [place] [address] 19513 Clarity (U) sl.cloudy NORMAL: CLEAR Normal 11-25-2019 [facility] ( 58378) Comment: Performed By: #### [id number] ## ## [facility],[address] [place] [address] 27836 Color (U) p.yel NORMAL: YELLOW Normal 11-25-2019 [facility] (16201) Comment: Performed By: #### [id number] ## ## [facility],[address] [place] [address] 97173 Crystals LM Nom (Urine sed) NONE Normal [facility] ( 22176) Comment: Performed By: #### [id number] ## ## [facility],[address] [place] [address] 56573 Epi Cells MANY Normal 11-25-2019 [facility] (60926) Comment: Performed By: #### [id number] ## ## [facility] [facility] 89930 Glucose [Mass/Vol] NORM NORMAL: NORMAL Normal 2019 [facility] ( 73205) Comment: Performed By: #### [id number] ## ## [facility],[address] [place] [address] 60262 Ketone NEG NORMAL: NEGATIVE Normal 11-25-2019 [facility] (34738) Comment: Performed By: #### [id number] ## ## [facility],[address] [place] [address] 54069 Mucous NONE Normal 11-25-2019 [facility] (39070) Comment: Performed By: #### [id number] ## ## [facility],[address] [place] [address] 61345 Nitrite Ql (U) NEG NORMAL: NEGATIVE Normal 11-25-19 20 [facility] ( 28690) Comment: Performed By: #### [id number] ## ## [facility],[address] [place] [address] 66648 pH (Bld) 5 NORMAL: 5.0-8.0 Normal 11-25-2019 [facility] (09217) Comment: Performed By: #### [id number] ## ## [facility],[address] [place] [address] 92098 Protein (U) NEG NORMAL: NEGATIVE mg/dL Normal 11-25-2019 [facility] [Mass/Vol] [facility] (52851) Comment: Performed By: #### [id number] ## ## [facility],[address] [place] [address] Rbc 0-5 0-3 / hpf Normal 11-25-2019 [facility] (51680) Comment: Performed By: #### [id number] ## ## [facility],[address] [place], [place] [id number] Sp Gideon 1.010 NORMAL: 1.010-1.030 Normal 0 [facility] ( 15119) Comment: Performed By: #### [id number] ## ## [facility],[address] [place] [address] Specimen type Nom (Spec) UNSPECIFIED Normal [facility] ( 72985) Comment: Performed By: #### [id number] ## ## [facility],[address] [place], [place] [address] URINALYSIS WITH MICROSCOPY Normal [facility] (34553) Comment: Result Comment: URINALYSIS Performed By: #### [id number] ## ## [facility],[address] [place] [address] Urobilinog NORM NORMAL: NORMAL Normal 11-25-2019 [facility] (94557) Comment: Performed By: #### [id number] ## ## [facility],[address] [place], [place] [address] Wbc 1-5 0-5 / hpf Normal 11-25-2019 [facility] (89411) Comment: Performed By: #### [id number] ## ## [facility],[address] [place], [place] [address] WBC (Bld) [#/Vol] 25 NORMAL: NEGATIVE Abnormal 11-24 [facility] ( 69946) Comment: Result Comment: URINE MICROS COPIC Performed By: #### [id number] ## ## [facility],[address] [place] [address] 65520 Yeast LM Ql (Urine sed) NONE Normal 2019 [facility] (43958) Comment: Performed By: #### [id number] ## ## [facility],[address] [place] [address] 35193 lipase on 2019-11-13 3 Lipase [Catalytic 34.0 18.0 - 51.0 U/L Normal 11-25-2019 [facility] activity/Vol] [facility] (18381) Comment: Performed By: #### [id number] ## ## [facility],[address] [facility] 62047 lactate on Lactate [Moles/Vol] 0.9 0.5 - 2.0 mmol/L Normal 11-25-2019 [facility] ( 71494) Comment: Performed By: #### [id number] ## ## [facility],[address] [place] [address] abdomen/pelvis wo on 2019-11-25 CT ABDOMEN/PELVIS [facility] Normal 0 11-25-2019 [facility] ospital [address] [place], [place] [id number] (99433) Patient: SALLY MCGREGOR Phone#: : 1980 Age: 39 Gender: F Pt. Type: ER Account: [id number] Location: [facility] Ordering: DR. ANA ALCANTAR Exam Date: 11/25/2019/0:04 Family Phys: ISABEL ARIAS Charge Code: [id number] Physician: [place] Order #: [id number] DLP Dose#: PROCEDURE: CT ABDOMEN/PELVIS WITHOUT CONTRAST COMPARISON: [facility], CT, ABDOMEN/PELVIS W/O CON, 03/22/2019, 16:41. INDICATIONS: Abdominal Pain TECHNIQUE: CT images were created without intravenous contra st. All CT scans at this [facility] y use dose modulation, iterative [...] 39 Gender: F Pt. Type: ER Account: [id number] Location: 052 Ordering: DR. ANA ALCANTAR Exam Date: 11/25/2019/0:04 Family Phys: ISABEL ARIAS Charge Code: [id number] Physician: [place] Order #: [id number] DLP Dose#: ABDOMINAL WALL: There is a [...] on 2019-11-25 CNPN Telephone (FAMPWS) Normal 11-25-[address] [place] [facility] TOSHIASALLY TORRES ([id number]) 1980 [place] Date Time Provider Department (90427) 11/25/19 [facility] During your visit today, we recorded [...] Age - Reported 39 years Normal 11-25-2019 [facility] (08753) Comment: Performed By: #### [id number] ## ## [facility],[address] [place] [address] 30924 Albumin [Mass/Vol] 4.5 3.4 - 4.8 g/dL Normal 11-25-2019 [facility] ( 91745) Comment: Performed By: #### [id number] ## ## [facility],[address] [place] [address] 90916 Albumin/Globulin [Mass 1.3 0.9 - 1.6 {ratio} Normal [address] [place] [address] (67050) Comment: Performed By: #### [id number] ## ## [facility],[address] [place] [address] 90728 ALK PHOS 93 38 - 126 U/L Normal 11-25-2019 [facility] (95977) Comment: Performed By: #### [id number] ## ## [facility],[address] [place] [address] 04142 ALT/SGPT 10 8 - 35 U/L Normal 11-25-2019 [facility] (83363) Comment: Performed By: #### [id number] ## ## [facility],[address] [place] [address] 57607 Anion gap [Moles/Vol] 13 10 - 20 mmol/L Normal 11-25-19 [facility] ( 71679) Comment: Performed By: #### [id number] ## ## [facility],[address] [place] [address] 36185 AST/SGOT 9 13 - 39 U/L Low 11-25-2019 [facility] (14850) Comment: Performed By: #### [id number] ## ## [facility] 92266 B/C RATIO 17 0 - 30 ratio Normal 11-25-2019 [facility] (70596) Comment: Performed By: #### [id number] ## ## [facility],[address] [facility] 57791 Bilirubin [Mass/Vol] 0.4 0.0 - 1.5 mg/dl Normal 0 [facility] ( 79329) Comment: Performed By: #### [id number] ## ## [facility],[address] [place] [address] 59731 Calcium [Mass/Vol] 9.9 8.6 - 10.2 mg/dl Normal 11-25-2019 [facility] ( 29472) Comment: Performed By: #### [id number] ## ## [facility],[address] [facility] 72686 Chloride [Moles/Vol] 103 98 - 107 mmol/L Normal 0 [facility] ( 61317) Comment: Performed By: #### [id number] ## ## [facility],[address] [place] [address] CO2 [Moles/Vol] 24.9 21.0 - 31.0 mmol/L Normal 11-25-2019 [facility] ( 95027) Comment: Performed By: #### [id number] ## ## [facility],[address] [place] [address] 71500 Creatinine [Mass/Vol] 1.0 0.6 - 1.2 mg/dl Normal 11-25-19 20 [facility] ( 19113) Comment: Performed By: #### [id number] ## ## [facility],[address] [place] [address] 37061 GFR/1.73 sq M >60 60 - 999 mL/min/{1.73_m2} Normal 0 [facility] predicted among [facility] non-blacks MDRD (000 00) (S/P/Bld) [Vol rate/Area] Comment: Performed By: #### [id number] ## ## [facility],[address] [place] [address] 47363 Result Comment: ACCORDING TO THE NATIONAL KIDNEY DISEASE EDUCATION PROGRAM(NKDE), A NORMAL eGFR IS A VALUE GREATER THAN OR E QUAL TO 60 ML/MIN/1.73 SQ METERS. CHRONIC KIDNEY DISEASE: <60m L/MIN/1.73 SQ METERS KIDNEY FAILURE: <15mL/MIN/1. 73 SQ METERS THIS TEST SHOULD ONLY BE USE D FOR PATIENTS 18 YEARS OF AGE AND OLDER. GFR/1.73 sq M predicted among Normal 11-25-2019 [facility] non-blacks MDRD (S/P/Bld) [Vol Hospital (88166) rate/Area] Comment: Result Comment: COMPREHENSIV E METABOLIC PANEL Performed By: #### [id number] ## ## [facility],[address] [place] [address] 50011 Globulin (S) [Mass/Vol] 3.5 1.5 - 3.8 G/DL Normal 2019 [facility] ( 18159) Comment: Performed By: #### [id number] ## ## [facility],[address] [place] [address] 89170 Glucose [Mass/Vol] 123 74 - 106 mg/dl High 11-25-2019 [facility] (29565) Comment: Performed By: #### [id number] ## ## [facility],[address] [place] [address] 76995 Potassium [Moles/Vol] 3.6 3.5 - 5.1 mmol/L Normal 11-25-19 20 [facility] ( 57930) Comment: Performed By: #### [id number] ## ## [facility],[address] [place] [address] 70579 Protein [Mass/Vol] 8.0 6.4 - 8.3 g/dl Normal 11-25-2019 [facility] ( 07603) Comment: Performed By: #### [id number] ## ## [facility],[address] [place] [address] 67028 Sodium [Moles/Vol] 137 136 - 145 mmol/l Normal 11-25-2019 [facility] ( 86192) Comment: Performed By: #### [id number] ## ## [facility],[address] [place] [address] 60436 Urea nitrogen [Mass/Vol] 17 6 - 20 mg/dl Normal 11-24 [facility] ( 57732) Comment: Performed By: #### [id number] ## ## [facility],[address] [place] [address] 02889 chest 2 views on 01-12-12 CHEST 2 VIEWS [facility] Normal 11-25-19 [facility] [address] [place], [place] [id number] (17616) Patient: SALLY MCGREGOR Phone#: : 1980 Age: 39 Gender: F Pt. Type: ER Account: [id number] Location: [facility] Ordering: DR. ANA ALCANTAR Exam Date: 11/25/2019/0:08 Family Phys: ISABEL ARIAS Charge Code: [id number] Physician: [place] Order #: [id number] DLP Dose#: PROCEDURE: X-RAY CHEST 2 VIEWS COMPARISON: [facility], XR, CHEST PA/LAT, 05/12/2017, 16:14. INDICATIONS: [...] on 11-24 CELL COUNT 100 Normal 11-25-2019 [facility] (58707) Comment: Performed By: #### [id number] ## ## [facility],[address] [place] [address] 59982 EO 1.0 0.0 - 4.0 % Normal 11-25-2019 [facility] (26750) Comment: Performed By: #### [id number] ## ## [facility],[address] [place] [address] 13805 SEGS 59 50 - 70 % Normal 11-25-2019 [facility] (84140) Comment: Performed By: #### [id number] ## ## [facility],[address] [place] [address] 28576 CBC + DIFF Normal 11-25-2019 [facility] (06009) Comment: Result Comment: CBC-COMPLETE BLOOD COUNT Performed By: #### [id number] ## ## [facility],[address] [place] [address] 71396 Erythrocyte distribution 13.4 12.0 - 15.6 % Normal [facility] (RBC) [Ratio] [facility] (83976) Comment: Performed By: #### [id number] ## ## [facility],[address] [place] [address] 73536 Hematocrit (Bld) [Volume 32.5 34.0 - 46.0 % Low [facility]] [facility] ( 57755) Comment: Performed By: #### [id number] ## ## [facility],[address] [place] [address] 89883 Hemoglobin (Bld) 11.4 12.0 - 16.0 g/dl Low 11-25-2019 [facility] [Mass/Vol] Hospital (76388) Comment: Performed By: #### [id number] ## ## [facility],[address] [place] [address] 89473 Lymphocytes/100 WBC (Bld) 40 20 - 40 % Normal 11-12 [facility] ( 61403) Comment: Performed By: #### [id number] ## ## [facility],[address] [place] [address] 80176 MANUAL DIFF SEE BELOW Normal 11-25-2019 [facility] (16970) Comment: Performed By: #### [id number] ## ## [facility],[address] [place] [address] 77455 MCH (RBC) [Entitic mass] 31 27 - 33 pg Normal 11-24 [facility] ( 03215) Comment: Performed By: #### [id number] ## ## [facility],[address] [place] [address] 50896 MCHC (RBC) [Mass/Vol] 35 32 - 36 X10 3 Normal 11-25-19 20 [facility] ( 87501) Comment: Performed By: #### [id number] ## ## [facility],[address] [place] [address] 98395 MCV (RBC) [Entitic vol] 88 80 - 99 fl Normal 2019 [facility] ( 58735) Comment: Performed By: #### [id number] ## ## [facility],[address] [place] [address] 76962 Morphology Adrian (Bld) REVIEWED Normal 0 [facility] [Interp] [facility] ( 27554) Comment: Performed By: #### [id number] ## ## [facility],[address] [place] [address] 10183 Platelet mean volume 9.1 6.6 - 10.5 fl Normal 11-25-19 20 [facility] (Bld) [Entitic vol] [facility] (70008) Comment: Result Comment: AUTOMATED DI FFERENTIAL Performed By: #### [id number] ## ## [facility],[address] [place] [address] 78745 Platelets (Bld) 268 150 - 450 x10EE3/UL Normal 11-25-2019 [facility] [#/Vol] [facility] (89212) Comment: Performed By: #### [id number] ## ## [facility],[address] [place] [address] 32996 RBC (Bld) [#/Vol] 3.69 4.10 - 5.30 x 10EE6/UL Low 0 [facility] ( 50047) Comment: Performed By: #### [id number] ## ## [facility],[address] [place] [address] 01096 WBC (Bld) [#/Vol] 11.4 4.5 - 10.8 x 10EE3/UL High 11-25-2019 [facility] ( 21725) Comment: Performed By: #### 625055 ## ## [facility],[address] [place] [address] 67954 tsh on 2019-11-24 TSH Qn 3.920 0.270-4.200 uU/mL Normal 11-24-2019 [facility] (50201) Comment: Result Comment: If the patie nt [...] et al. 2017 Guide lines of the [place] [employer] for the Diagnosis and Management of Thyroid Disease during and the . Thyroid, 2017:27:3:315-389. Performed By: #### TSH, CBCD IF, CMP ####[facility] [address] [place], [place] [address] [phone] troponin t on 11-23 Troponin T.cardiac Test sent to 0.000-0.029 Normal 2019 [facility] [Mass/Vol] [facility] (11093) [facility]. Comment: Result Comment: Account Cred ited HIDE progress on 2019-11 PROGRESS HNO ID: [id number] Normal 11-24-2019 [facility] Author: Jay) [place] ([id number]) Service: ? Author Type: Physician Commercial Counsel Type: Progress Notes Filed: 11/24/2019 9:33 AM [...] insurance and was forced to see a [facility] psychiatrist who isn't helping her. Only spoke with her twice. States she is in a lot of pain and trouble sleeping. States gabapentin used to work for her but when she lost her insurance. PAST MEDICAL HISTORY Diagnosis Date - Allergic rhinitis, cause unspecified 05/17/2008 Spring and summer - Benign liver cyst 05/24/2010 CT scan at [facility] 11/2009 and 04/2010 showe 4 mm increase in size . No pain. No elevated LFTs on 03/11/2010. - Calculus of kidney 05/17/[address] Nicolas: Hospitalized age 20, and again later -- no procedures so far ([facility], [facility] [place], 1995 [facility]) - Dysmenorrhea - Impaired fasting [...] Approx. 3 cigarettes daily-1 pack every w [place] Substance Use Topics - Alcohol use: Yes [...] dimer on D dimer Test sent to [place] <500 Normal 0 [facility]. (76076) Comment: Result Comment: Account Cred ited HIDE comp metabolic panel on 2019-11-24 Albumin [Mass/Vol] 4.4 3.9-4.9 g/dL Normal 11-24-2019 [facility] (48058) Comment: Performed By: #### TSH, CBCD IF, CMP ####[facility] [address] [place] [address] [phone] ALP [Catalytic activity/Vol] 105 34-123 U/L Normal 0 11-24-2019 [facility] (59537) Comment: Performed By: #### TSH, CBCD IF, CMP ####[facility] [address] [place] [address] [phone] ALT [Catalytic activity/Vol] 6 7-38 U/L Low 0 11-24-2019 [facility] (49810) Comment: Performed By: #### TSH, CBCD IF, CMP ####[facility] [place] [address] [phone] Anion gap [Moles/Vol] 12 9-18 mmol/L Normal 11-24-19 20 [facility] (49445) Comment: Performed By: #### TSH, CBCD IF, CMP ####[place] [address] [address] [place] [address] [phone] AST [Catalytic activity/Vol] 14 13-35 U/L Normal 0 11-24-2019 [facility] (45856) Comment: Performed By: #### TSH, CBCD IF, CMP ####[place] [address] [phone] Bilirubin [Mass/Vol] 0.4 0.2-1.3 mg/dL Normal 0 [facility] (72192) Comment: Performed By: #### TSH, CBCD IF, CMP ####[place] [address] [address] [place] [address] [phone] Calcium [Mass/Vol] 9.9 8.5-10.2 mg/dL Normal 11-24-2019 [facility] (88250) Comment: Performed By: #### TSH, CBCD IF, CMP ####[facility] [place] [address] [phone] Chloride [Moles/Vol] 101 97-105 mmol/L Normal 0 [facility] (15226) Comment: Performed By: #### TSH, CBCD IF, CMP ####[place] [address] [place] [address] [phone] CO2 [Moles/Vol] 23 22-30 mmol/L Normal 11-24-2019 [facility] (19974) Comment: Performed By: #### TSH, CBCD IF, CMP ####[facility] [address] AveCMatthew [place] [address] [phone] Creatinine [Mass/Vol] 0.93 0.58-0.96 mg/dL Normal 11-24-19 [facility] (70974) Comment: Performed By: #### TSH, CBCD IF, CMP ####[facility] [address] AveCMatthew [place] [address] [phone] eGFR- Amer. >60 Normal 11-24-2019 [facility] (31992) Comment: Performed By: #### TSH, CBCD IF, CMP ####[facility] [place] [address] [phone] GFR/1.73 sq M predicted >60 mL/min/{1.73_m2} Normal 11-24-2019 [facility] among non-blacks [facility] (98076) (S/P/Bld) [Vol rate/Area] Comment: Result Comment: eGFR [...] Performed By: #### TSH, CBCD IF, CMP ####[facility] [address] Av[place] [address] [phone] Glucose [Mass/Vol] 98 74-99 mg/dL Normal 11-24-2019 [facility] (89199) Comment: Result Comment: The [place] Diabetes Association (ADA) provides guidance for cutoff [...] for diagnosis of diabetes. Reference: Standards of [facility] Care in Diabetes 2016, [place] [employer] Association. Diabetes Care. 2016.39(Suppl 1). Performed By: #### TSH, CBCD IF, CMP ####[facility] [place] [address] [phone] Potassium [Moles/Vol] 4.1 3.7-5.1 mmol/L Normal 11-24-19 [facility] (00373) Comment: Performed By: #### TSH, CBCD IF, CMP ####[place] [address] [phone] Protein [Mass/Vol] 7.6 6.3-8.0 g/dL Normal 11-24-2019 [facility] (51894) Comment: Performed By: #### TSH, CBCD IF, CMP ####[place] [address] [place] [address] [phone] Sodium [Moles/Vol] 136 136-144 mmol/L Normal 11-24-2019 [facility] (65900) Comment: Performed By: #### TSH, CBCD IF, CMP ####[place] [address] [phone] Urea nitrogen [Mass/Vol] 21 7-21 mg/dL Normal 11-23 [facility] (92317) Comment: Performed By: #### TSH, CBCD IF, CMP ####[place] [address] [phone] cnpn on 2019-11-24 CNPN Telephone (FAMPWS) Normal 11-24-[address] [place] [facility] SALLY MCGREGOR ([id number]) 1980 [facility] Time Provider Department (52909) 11/24/19 MARCELINO MEJIA During your visit today, we recorded the following informati on about you: Yvette Huffman RN 11/24/2019 3:23 PM Signed Pt called, verified by name and birthdate. Pt wants to know if provider will fax letter that was written today to [phone] for her child support to be addressed. Please advise Yvette Bruce Ma 11/24/2019 3:33 PM Signed Faxed letter. Spoke with patient and she indicated that she pays support but is currently unemployed and needs to show that she is under doctor care. I did explain to patient that she is onl y under doctor for the [facility] states in the letter. Valente Bruce Ma' Allergies As of Date: 11/24/2019 Noted Allergy Reaction ASA (SALICYLATES) 01/27/2011 14 - Other: See Comments Comments: ulcers CONTRAST DYE (IODINE) 05/17/2008 12 - Shortness of Breath FLAGYL (METRONIDAZOLE HCL) 03/11/2010 12 - Shortness of Wisner th IBUPROFEN 06/18/2016 8 - GI Upset [...] on 11/24/19 CNPN Telephone (FAMPWS) Normal 11-24-[address] [place] 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 If so please fax to [employer] fax [phone]. ISABEL ARIAS PA-C 11/24/2019 1:00 PM Signed [...] on 11/24/19 CNPN Telephone (FAMPWS) Normal 11-24-[address] [place] [facility] SALLY MCGREGOR ([id number]) 1980 [facility] Date Time Provider Department (66005) 11/24/19 MARCELINO MEJIA [facility] During your visit today, we recorded the following informati on about you: Yvette Huffman RN 11/24/2019 12:00 PM Signed Aidee from [facility] lab called, verified pt by [...] (METRONIDAZOLE HCL) 03/11/2010 12 - Shortness of Wisner th IBUPROFEN 06/18/2016 8 - GI Upset [...] 2019-11-24 CNOV Office Visit (FAMPWS) Normal 11-24-[address] [place] [facility] SALLY MCGREGOR ([id number]) 1980 [facility] Date Time Provider Department (04297) 11/24/19 9:20 AM JAY ARIAS) FAMPWS During [...] Benign liver cyst 05/24/2010 CT scan at [facility] 11/2009 and 04/2010 showe 4 mm increase in size . No pain. No elevated LFTs on 03/11/2010. - Calculus of kidney 05/17/[address] Nicolas: Hospitalized age 20, a nd again later -- no procedures so far ([facility], [place], 1995 [facility]) - Dysmenorrhea - Impaired fasting [...] Approx. 3 cigarettes daily-1 pack every w [place] Substance Use Topics - Alcohol use: Yes [...] TO [facility] [11697305] Order #: [id number]: 1 levoFLOXacin (LEVAQUIN) 500 mg tabletTake 1 [...] Abs Baso 0.06 <0.11 k/uL Normal 11-24-2019 [facility] (32997) Comment: Performed By: #### TSH, CBCD IF, CMP ####[place] [address] [place] [address] [phone] Abs Bartow 0.43 <0.87 k/uL Normal 11-24-2019 [facility] (71752) Comment: Performed By: #### TSH, CBCD IF, CMP ####[place] [address] [address] [address] [phone] Abs Neut 5.59 1.45-7.50 k/uL Normal 11-24-2019 [facility] (69999) Comment: Performed By: #### TSH, CBCD IF, CMP ####[place] [address] [address] [address] [phone] Absolute nRBC <0.01 <0.01 Normal 11-24-2019 [facility] (05870) Comment: Performed By: #### TSH, CBCD IF, CMP ####[place] [address] [address] [place] [address] [phone] Basophils/100 WBC (Bld) 0.7 % Normal 2019 [facility] (65317) Comment: Performed By: #### TSH, CBCD IF, CMP ####[place] [address] [address] [place] [address] [phone] DTYPE Auto Diff Normal 11-24-2019 [facility] (51205) Comment: Performed By: #### TSH, CBCD IF, CMP ####[place] [address] [place] [address] [phone] Eosinophils (Bld) [#/Vol] 0.34 <0.46 k/uL Normal 11-12 [facility] (95582) Comment: Performed By: #### TSH, CBCD IF, CMP ####[place] [address] [place] [address] [phone] Eosinophils/100 WBC (Bld) 3.7 % Normal 11-12 [facility] (88485) Comment: Performed By: #### TSH, CBCD IF, CMP ####[facility] [place] [address] Erythrocyte distribution 13.1 11.5-15.0 % Normal 11-23 [facility] width (RBC) [Ratio] [place] ([address]2940) Comment: Performed By: #### TSH, CBCD IF, CMP ####[facility] [address] AveCM[address]the[address] [place] [address] [phone] Hematocrit (Bld) [Volume 38.1 36.0-46.0 % Normal 11-23 [facility] fraction] [place] ([address]09) Comment: Performed By: #### TSH, CBCD IF, CMP ####[facility] [place] [address] [phone] Hemoglobin (Bld) 11.7 11.5-15.5 g/dL Normal 11-24-2019 [facility] [Mass/Vol] [place] (57264) Comment: Performed By: #### TSH, CBCD IF, CMP ####[facility] [place] [address] [phone] Lymphocytes (Bld) [#/Vol] 2.69 1.00-4.00 k/uL Normal 11-12 [facility] (67846) Comment: Performed By: #### TSH, CBCD IF, CMP ####[facility] [address] AveCM[address]the[address] [place] [address] [phone] Lymphocytes/100 WBC (Bld) 29.5 % Normal 11-12 [facility] (13860) Comment: Performed By: #### TSH, CBCD IF, CMP ####[facility] [address]CM[address]the[address] [place] [address] [phone] MCH (RBC) [Entitic mass] 29.3 26.0-34.0 pG Normal 11-23 [facility] (65000) Comment: Performed By: #### TSH, CBCD IF, CMP ####[facility] [place] [address] [phone] MCHC (RBC) [Mass/Vol] 30.7 30.5-36.0 g/dL Normal 11-24-19 [facility] (79403) Comment: Performed By: #### TSH, CBCD IF, CMP ####[place] [address] [place] [address] [phone] MCV (RBC) [Entitic vol] 95.3 80.0-100.0 fL Normal 11-23 [facility] (06063) Comment: Performed By: #### TSH, CBCD IF, CMP ####[place] [address] [address] [place] [address] [phone] Monocytes/100 WBC (Bld) 4.7 % Normal 2019 [facility] (01124) Comment: Performed By: #### TSH, CBCD IF, CMP ####[place] [address] [address] [place] [address] [phone] Neutrophils/100 WBC (Bld) 61.4 % Normal 11-12 [facility] (89447) Comment: Result Comment: Differential confirmed by visual scan of peripheral blood smear slide. Performed By: #### TSH, CBCD IF, CMP ####[place] [address] [address] [place] [address] [phone] NRBCs 0.0 0 /100 WBC Normal 11-24-2019 [facility] (30714) Comment: Performed By: #### TSH, CBCD IF, CMP ####[place] [address] [place] [address] [phone] Platelet mean volume 11.4 9.0-12.7 fL Normal 0 [facility] (Bld) [Entitic vol] [place] (06470) Comment: Performed By: #### TSH, CBCD IF, CMP ####[facility] [place] [address] [phone] Platelets (Bld) [#/Vol] 248 150-400 k/uL Normal 2019 [facility] (41656) Comment: Performed By: #### TSH, CBCD IF, CMP ####[facility] [place] [address] [phone] RBC (Bld) [#/Vol] 4.00 3.90-5.20 m/uL Normal 11-24-2019 [facility] (11333) Comment: Performed By: #### TSH, CBCD IF, CMP ####[place] [address] [place] [address] [phone] WBC (Bld) [#/Vol] 9.11 3.70-11.00 k/uL Normal 11-24-2019 [facility] (48920) Comment: Performed By: #### TSH, CBCD IF, CMP ####[place] [address] [place] [address] [phone] cnpn on 2019-11-21 [facility] Normal 11-21-[address] [place] [facility] SALLY MCGREGOR ([id number]) 1980 [facility] Date Time Provider Department (14455) 11/21/19 MARCELINO MEJIA [facility] During your visit today, we recorded [...] Status:Closed by VALENTE BRUCE MA on 11/23/19 [facility] on 2019-11-19 [facility] Telephone (FAMPWS) Normal 11-19-[address] [place] [facility] SALLY MCGREGOR ([id number]) 1980 [facility] Date Time Provider Department (06440) 11/19/19 JC FELIX [facility] During your visit today, we recorded [...] 11/21/2019 11:15 AM Signed Pt seen in [facility] ER on 11/19/19. Janneth Zhou, [...] (METRONIDAZOLE HCL) 03/11/2010 12 - Shortness of Wisner th IBUPROFEN 06/18/2016 8 - GI Upset PENICILLINS 12/07/2009 2 - Rash PREDNISONE 06/18/2016 14 - Other: See Comments Comments: makes agitated and mean Date Reviewed: 11/18/2019 Reviewed by: Valente Bruce Ma - Fully Assessed Reason for Visit: Question [1114] Patient Update [7564] Reason For Visit History Recorded Prescriptions as [...] * *Final Report* * * Normal 11-17 [facility] FRONTAL/LAT DATE OF EXAM: Nov 18 2019 12:48PM [place] WOX 5291 - XR CHEST 2V FRONTAL/LAT / (98809) PROCEDURE REASON: multiple diagnoses * * * [...] tissues: Unremarkable. IMPRESSION: No acute radiographic abnormality. Bottle Label Inspector: PSCB Transcribe Date/Time: Nov 18 2019 1:01P Dictated by : KORI BLANKENSHIP MD This examination was interpreted and the report reviewed and electronically signed by: KORI BLANKENSHIP MD on Nov 18 2019 1:02PM EST [id number] progress on 2019-11 PROGRESS HNO ID: [id number] Normal 11-18-2019 [facility] Author: Kylee PickardRtVianey Lea [place] (15449) Service: ? Author Type: Staffing Operations Manager Type: Progress Notes Filed: 11/18/2019 12:49 PM [...] 18, 2019 12:40 PM PROGRESS HNO ID: [id number] Normal 11-18-2019 [facility] Author: Randi Arias [place] (63781) Service: ? Author Type: Physician Commercial Counsel Type: Progress Notes Filed: 11/18/2019 3:32 PM [...] Benign liver cyst 05/24/2010 CT scan at [facility] 11/2009 and 04/2010 showe 4 mm increase in size . No pain. No elevated LFTs on 03/11/2010. - Calculus of kidney 05/17/[address] Nicolas: Hospitalized age 20, and again later -- no procedures so far ([facility], [facility] [place], [facility]) - Dysmenorrhea - Impaired fasting [...] removed - TOTAL ABDOM HYSTERECTOMY 08/31/06 Hysterectomy, [facility] Family History FAMILY HISTORY Problem Relation [...] Approx. 3 cigarettes daily-1 pack every w [place] Substance Use Topics - Alcohol use: Yes [...] NAME : SALLY MCGREGOR Normal 11-17-2 020 [facility] PID : [id number] Sina boyd ([id number]) : 1980 Gender : Female Race : [...] ms QTC Calculation(Bazett) : 453 ms P [place] : 51 degrees R [place] : -43 degrees T [place] : 6 degrees Test Reason : Location : 185 : [facility] Overread By : RUBEN GALVIN D.O. Edited By : RUBEN GALVIN D.O. Referred By : JAY ARIAS) Acquired by : morena MURRIETA on 2019-11-18 [facility]) Normal 11-18-[address] [place] [facility] SALLY MCGREGOR ([id number]) 1980 [facility] Time Provider Department (57764) 11/18/19 JAY ARIAS) [facility] During your visit today, we recorded the following informati on about you: Lorenzohanna Vu 11/18/2019 2:14 PM Addendum [facility] / [facility] calls with results of d-dimer [...] cnov on 2019-11-18 CNOV Office Visit (FAMPWS) [place] 11-18-[address] [place] [address] Debra SALLY MCGREGOR ([id number]) 1980 [facility] Time Provider Department (52599) 11/18/19 12:20 PM JAY ARIAS) [facility] During your visit today, we recorded [...] Benign liver cyst 05/24/2010 CT scan at [facility] 11/2009 and 04/2010 showe 4 mm increase in size . No pain. No elevated LFTs on 03/11/2010. - Calculus of kidney 05/17/[address] Nicolas: Hospitalized age 20, a nd again later -- no procedures so far ([facility], [place], 1995 [facility]) - Dysmenorrhea - Impaired fasting [...] removed - TOTAL ABDOM HYSTERECTOMY 08/31/06 Hysterectomy, [facility] Family History FAMILY HISTORY Problem Relation [...] Approx. 3 cigarettes daily-1 pack every w [place] Substance Use Topics - Alcohol use: Yes [...] Order(s):CONSULT TO PAIN MGT [19991220] Order #: [id number] : 1 FUTURE CBC + DIFF [SQCBCDIF] Order #: [id number] FUTURE COMP METABOLIC PANEL [SQCMP] Order #: [id number] FUTURE D-DIMER [SQDDMER] Order #: [id number] FUTURE TSH BLD [SQTSH] Order #: [id number] FUTURE CONSULT TO CARDIOLOGY [900] Order #: [id number]: 1 FUTUR E XR CHEST 2V FRONTAL/LAT [6390274] Order #: [id number] FUTURE TROPONIN T [SQTNT] Order #: [id number] FUTURE Prescriptions as of 11/18/2019 Sig: AMITRIPTYLINE [...] 11/18/19 emergency report on 2019-11-03 [facility] Normal 11-03 [facility] ospital EMERGENCY ROOM REPORT (90116) NAME ACCOUNT SEX AGE ADMIT DISCHARGE PT MED. RECORD# NUMBER DATE DATE TYPE SAM [id number] F 39 10/31/19 10/31/19 3 SALLY [id number] ROOM: ER DATE OF : 1980 DICTATING [...] try contacting Dr. Kyle hernandez through the [facility]. We will dispense her 2 Percocet to go home. I did r eview her OARRS, and she will be discharged in stable condition. Page 1 of 2 SALLY MCGREGOR Emergency Room Report SALLY MCGREGOR : 1980 Dictated By: Nikhil Lord DO 10/31/19 18:03 JOB #: [id number] Transcribed By: am 11/01/19 14:42 Electronically signed by: JC Lord D.O. 11/03/19 07:04 Page 2 of 2 SALLY MCGREGOR Emergency Room Report urinalysis on 10-31 Calcium Ox 1+ NORMAL: NONE Normal 10-31-2019 [facility] (04441) Comment: Performed By: #### [id number] ## ## [facility] natty,[address] [facility] [address] Amorphous TRACE Normal 10-31-2019 [facility] (71101) Comment: Performed By: #### [id number] ## ## [facility] [facility],[place] [address] Bacteria LM.HPF (Urine sed) TRACE Normal [facility] [#/Area] [facility] ( 47663) Comment: Performed By: #### [id number] ## ## [facility],[address] [facility] [address] Bilirubin [Mass/Vol] NEG NORMAL: NEGATIVE mg/dL Normal [facility] ospital (94050) Comment: Performed By: #### [id number] ## ## [facility],[address] [facility] [address]453 Blood 25 NORMAL: NEGATIVE Abnormal 10-31-2019 [facility] (15638) Comment: Performed By: #### [id number] ## ## [facility] [facility] [address]69 Casts LM.LPF (Urine sed) NONE Normal 10-31 [facility] [/Area] [facility] ( 47972) Comment: Performed By: #### [id number] ## ## [facility],[address] [facility] [address] Clarity (U) clear NORMAL: CLEAR Normal 10-31-2019 [facility] (78762) Comment: Performed By: #### [id number] ## ## [facility],[address] [facility] [address] Color (U) yellow NORMAL: YELLOW Normal 10-31-2019 [facility] (20710) Comment: Performed By: #### 655202 ## ## [facility] [address] Crystals LM Nom (Urine sed) SEE BELOW Normal [facility] ( 83786) Comment: Performed By: #### 467806 ## ## [facility],[address] [place] [address] 43654 Epi Cells MANY Normal 10-31-2019 [facility] (24960) Comment: Performed By: #### 440776 ## ## [facility],[address] [place] [address] 53005 Glucose [Mass/Vol] NORM NORMAL: NORMAL Normal 2019 [facility] ( 27081) Comment: Performed By: #### [id number] ## ## [facility],[address] [place] [address] 37930 Ketone NEG NORMAL: NEGATIVE Normal 10-31-2019 [facility] (10456) Comment: Performed By: #### [id number] ## ## [facility],[address] [place] [address] 98575 Microscopic SEE BELOW Normal 10-31-2019 [facility] (89940) Comment: Result Comment: MICROSCOPIC Performed By: #### [id number] ## ## [facility],[address] [place] [address] 34679 Mucous NONE Normal 10-31-2019 [facility] (07780) Comment: Performed By: #### [id number] ## ## [facility],[address] [place] [address] 38644 Nitrite Ql (U) NEG NORMAL: NEGATIVE Normal 10-31-19 20 [facility] ( 24858) Comment: Performed By: #### 196523 ## ## [facility],[address] [place] [address] 69134 pH (Bld) 5 NORMAL: 5.0-8.0 Normal 10-31-2019 [facility] (53935) Comment: Performed By: #### 245110 ## ## [facility],[address] [place] [address] 69140 Protein (U) NEG NORMAL: NEGATIVE mg/dL Normal 10-31-2019 [facility] [Mass/Vol] [facility] (72516) Comment: Performed By: #### [id number] ## ## [facility],[address] [place] [address] 34212 Rbc 0-5 0-3/hpf Normal 10-31-2019 [facility] (47798) Comment: Performed By: #### [id number] ## ## [facility],[address] [place], [place] [id number] Sp Gideon 1.030 NORMAL: 1.010-1.030 Normal 0 [facility] ( 58553) Comment: Performed By: #### [id number] ## ## [facility],[address] [place], [place] [address] Specimen type Nom (Spec) UNSPECIFIED Normal [facility] ( 28533) Comment: Performed By: #### [id number] ## ## [facility],[address] [place], [place] [address] Urobilinog NORM NORMAL: NORMAL Normal 10-31-2019 [facility] (86848) Comment: Performed By: #### [id number] ## ## [facility],[address] [place] [address] 74695 Wbc 1-5 0-5/hpf Normal 10-31-2019 [facility] (75149) Comment: Performed By: #### [id number] ## ## [facility],[address] [place] [address] 77617 WBC (Bld) [#/Vol] 25 NORMAL: NEGATIVE Abnormal 10-31 [facility] ( 27454) Comment: Performed By: #### [id number] ## ## [facility],[address] [place] [address] 14956 Yeast LM Ql (Urine sed) NONE Normal 2019 [facility] (91778) Comment: Performed By: #### [id number] ## ## [facility],[address] [facility] [address]4626 lipase on 2019-10-15 7 Lipase [Catalytic 40.0 18.0 - 51.0 U/L Normal 10-31-2019 [facility] activity/Vol] [facility] (35051) Comment: Performed By: #### [id number] ## ## [facility] [facility] [address]1973 cmp with egfr on 03-11-16 Age - Reported 39 years Normal 10-31-2019 [facility] (66598) Comment: Performed By: #### [id number] ## ## [facility],[address] [place] [address] 41004 Albumin [Mass/Vol] 4.4 3.4 - 4.8 g/dL Normal 10-31-2019 [facility] ( 34663) Comment: Performed By: #### [id number] ## ## [facility],[address] [place] [address] 47218 Albumin/Globulin [Mass 1.3 0.9 - 1.6 {ratio} Normal 020 [facility]] [facility] (15403) Comment: Performed By: #### [id number] ## ## [facility] [address]85 ALK PHOS 79 38 - 126 U/L Normal 10-31-2019 [facility] (16523) Comment: Performed By: #### [id number] ## ## [facility] [address]909 ALT/SGPT 12 8 - 35 U/L Normal 10-31-2019 [facility] (41726) Comment: Performed By: #### [id number] ## ## [facility] [address]39 Anion gap [Moles/Vol] 12 10 - 20 mmol/L Normal 10-31-19 [facility] ( 54244) Comment: Performed By: #### [id number] ## ## [facility],9[address] [facility] [address]406 AST/SGOT 13 13 - 39 U/L Normal 10-31-2019 [facility] (79393) Comment: Performed By: #### 698143 ## ## [facility] [facility],[place] [address] B/C RATIO 18 0 - 30 ratio Normal 10-31-2019 [facility] (85586) Comment: Performed By: #### [id number] ## ## [facility] [address] Bilirubin [Mass/Vol] 0.4 0.0 - 1.5 mg/dl Normal 0 [facility] ( 28212) Comment: Performed By: #### [id number] ## ## [facility] [place] [address] Calcium [Mass/Vol] 9.6 8.6 - 10.2 mg/dl Normal 10-31-2019 [facility] ( 42026) Comment: Performed By: #### [id number] ## ## [facility] [place] [address] Chloride [Moles/Vol] 103 98 - 107 mmol/L Normal 0 [facility] ( 90693) Comment: Performed By: #### [id number] ## ## [facility] [place] [address] CO2 [Moles/Vol] 25.8 21.0 - 31.0 mmol/L Normal 10-31-2019 [facility] ( 75271) Comment: Performed By: #### [id number] ## ## [facility] [place] [address] Creatinine [Mass/Vol] 1.0 0.6 - 1.2 mg/dl Normal 10-31-19 20 [facility] ( 34911) Comment: Performed By: #### [id number] ## ## [facility],[address] [place] [address] 16957 GFR/1.73 sq M predicted among Normal 10-31-2019 [facility] non-blacks MDRD (S/P/Bld) [Vol Hospital (77055) rate/Area] Comment: Result Comment: COMPREHENSIV E METABOLIC PANEL Performed By: #### [id number] ## ## [facility],[address] [place] [address] 65587 GFR/1.73 sq M >60 60 - 999 mL/min/{1.73_m2} Normal 0 [facility] predicted among [facility] non-blacks MDRD (000 00) (S/P/Bld) [Vol [...] OF AGE AND OLDER. Performed By: #### [id number] ## ## [facility],[address] [place] [address] 04789 Globulin (S) [Mass/Vol] 3.3 1.5 - 3.8 G/DL Normal 2019 [facility] ( 03794) Comment: Performed By: #### [id number] ## ## [facility],[address] [place] [address] 56529 Glucose [Mass/Vol] 96 74 - 106 mg/dl Normal 10-31-2019 [facility] ( 74394) Comment: Performed By: #### [id number] ## ## [facility],[address] [place] [address] 47369 Potassium [Moles/Vol] 3.9 3.5 - 5.1 mmol/L Normal 10-31-19 [facility] ( 82543) Comment: Performed By: #### [id number] ## ## [facility],[address] [place] [address] 39584 Protein [Mass/Vol] 7.7 6.4 - 8.3 g/dl Normal 10-31-2019 [facility] ( 02475) Comment: Performed By: #### [id number] ## ## [facility],[address] [place] [address] 84772 Sodium [Moles/Vol] 137 136 - 145 mmol/l Normal 10-31-2019 [facility] ( 60953) Comment: Performed By: #### [id number] ## ## [facility],[address] [place] [address] 34011 Urea nitrogen [Mass/Vol] 18 6 - 20 mg/dl Normal 10-31 [facility] ( 06838) Comment: Performed By: #### [id number] ## ## [facility],[address] [place] [address] 45461 cbc + diff on 10-31 Basophils (Bld) 0.20 0.00 - 0.10 x10EE3/UL High 10-31-2019 [facility] [#/Vol] [facility]ital (39234) Comment: Performed By: #### [id number] ## ## [facility],[address] [place] [address] 57048 Basophils/100 WBC (Bld) 2.0 0.0 - 2.0 % Normal 2019 [facility] ( 71104) Comment: Performed By: #### [id number] ## ## [facility],[address] [place] [address] 42868 CBC + DIFF Normal 10-31-2019 [facility] (66817) Comment: Result Comment: CBC-COMPLETE BLOOD COUNT Performed By: #### [id number] ## ## [facility],[address] [place] [address] 77364 Eosinophils (Bld) 0.40 0.00 - 0.50 x10EE3/UL Normal 10-31-2019 [facility] [#/Vol] [facility] (41778) Comment: Performed By: #### [id number] ## ## [facility],[address] [place] [address] 08995 Eosinophils/100 WBC (Bld) 4.8 0.0 - 7.0 % Normal 10-15 [facility] ( 33054) Comment: Performed By: #### [id number] ## ## [facility],[address] [place] [address] 12249 Erythrocyte distribution 13.7 12.0 - 15.6 % Normal [facility] (RBC) [Ratio] [facility] (32521) Comment: Performed By: #### [id number] ## ## [facility],[address] [place] [address] 41167 Hematocrit (Bld) [Volume 35.8 34.0 - 46.0 % Normal [facility] ( 54526) Comment: Performed By: #### [id number] ## ## [facility],[address] [place] [address] 69525 Hemoglobin (Bld) 12.3 12.0 - 16.0 g/dl Normal 10-31-2019 [facility] [Mass/Vol] [facility] (37759) Comment: Performed By: #### [id number] ## ## [facility],[address] [place] [address] 45512 Lymphocytes (Bld) 2.70 0.80 - 2.80 x10EE3/UL Normal 10-31-2019 [facility] [#/Vol] [facility] (96435) Comment: Performed By: #### [id number] ## ## [facility],[address] [place] [address] 13571 Lymphocytes/100 WBC (Bld) 30.3 20.0 - 45.0 % Normal [facility] ( 86485) Comment: Performed By: #### [id number] ## ## [facility],[address] [place] [address] 29129 MANUAL DIFF N/A Normal 10-31-2019 [facility] (76051) Comment: Performed By: #### [id number] ## ## [facility],[address] [place] [address] 67755 MCH (RBC) [Entitic mass] 30 27 - 33 pg Normal 10-31 [facility] ( 67336) Comment: Performed By: #### [id number] ## ## [facility],[address] [place] [address] 56037 MCHC (RBC) [Mass/Vol] 34 32 - 36 X10 3 Normal 10-31-19 20 [facility] ( 52606) Comment: Performed By: #### [id number] ## ## [facility],[address] [place] [address] 26302 MCV (RBC) [Entitic vol] 88 80 - 99 fl Normal 2019 [facility] ( 53231) Comment: Performed By: #### [id number] ## ## [facility],[address] [place] [address] 11237 Monocytes (Bld) 0.50 0.20 - 1.00 x10EE3/UL Normal 10-31-2019 [facility] [#/Vol] [facility] (85388) Comment: Performed By: #### [id number] ## ## [facility],[address] [place] [address] 75454 MONOS % 5.4 0.0 - 10.0 % Normal 10-31-2019 [facility] (84069) Comment: Performed By: #### [id number] ## ## [facility],[address] [place] [address] 78245 Morphology Adrian (Bld) [Interp] N/A Normal 10-31-2019 [facility] ( 01071) Comment: Performed By: #### [id number] ## ## [facility],[address] [place] [address] 94297 Neutrophils (Bld) 5.10 1.50 - 7.10 x10EE3/UL Normal 10-31-2019 [facility] [#/Vol] [facility] (84462) Comment: Performed By: #### [id number] ## ## [facility],[address] [place] [address] 47926 Neutrophils/100 WBC (Bld) 57.5 46.0 - 76.0 % Normal [facility] ( 65920) Comment: Performed By: #### [id number] ## ## [facility],[address] [place] [address] 61456 Platelet mean volume 8.9 6.6 - 10.5 fl Normal 10-31-19 20 [facility] (d) [Entitic vol] [facility] (09351) Comment: Result Comment: AUTOMATED DI FFERENTIAL Performed By: #### [id number] ## ## [facility],[address] [place] [address] 93981 Platelets (Bld) 280 150 - 450 x10EE3/UL Normal 10-31-2019 [facility] [#/Vol] [facility] (11608) Comment: Performed By: #### [id number] ## ## [facility],[address] [place] [address] 94262 RBC (Bld) [#/Vol] 4.06 4.10 - 5.30 x 10EE6/UL Low 0 [facility] ( 21272) Comment: Performed By: #### [id number] ## ## [facility],[address] [place] [address] 04044 WBC (Bld) [#/Vol] 8.8 4.5 - 10.8 x 10EE3/UL Normal 10-31-2019 [facility] ( 55449) Comment: Performed By: #### [id number] ## ## [facility] [address] hemogram on 2019-09 Erythrocyte distribution 13.6 11.5-14.5 % Normal 10-08 [facility] width (RBC) [Ratio] (03837) Comment: Performed By: #### BMP3M, MG 3, HEMOG #### [facility] [address] [place], [place] Hematocrit (Bld) [Volume 33.3 35.0-47.0 % Low 10-08 [facility] fraction] (56155) Comment: Performed By: #### BMP3M, MG 3, HEMOG #### [facility] [address] [place], [place] Hemoglobin (Bld) [Mass/Vol] 11.3 11.7-16.0 g/dL Low [facility] (56080) Comment: Performed By: #### BMP3M, MG 3, HEMOG #### [facility] [address], [place] MCH (RBC) [Entitic mass] 30.4 26.0-34.0 pg Normal 10-08 [facility] (69155) Comment: Performed By: #### BMP3M, MG 3, HEMOG #### [facility] [address] [place], [place] MCHC (RBC) [Mass/Vol] 33.9 32.0-36.0 % Normal 10-08-19 [facility] (36317) Comment: Performed By: #### BMP3M, MG 3, HEMOG #### [facility] [address] [place], [place] MCV (RBC) [Entitic vol] 89.9 79.0-98.0 fL Normal 2019 [facility] (02837) Comment: Performed By: #### BMP3M, MG 3, HEMOG #### [place] [address] [address] [place], [place] Platelet mean volume (Bld) 9.5 7.4-10.4 fL Normal [facility] [Entitic vol] (21556 ) Comment: Performed By: #### BMP3M, MG 3, HEMOG #### [facility] [address] [place], [place] Platelets (Bld) [#/Vol] 240 140-440 10*3/uL Normal 2019 [facility] (00096) Comment: Performed By: #### BMP3M, MG 3, HEMOG #### [facility] [address] [place], [place] RBC (Bld) [#/Vol] 3.70 3.80-5.20 10*6/uL Low 10-08-2019 S [facility] (30823) Comment: Performed By: #### BMP3M, MG 3, HEMOG #### [place] [address] [address] [place], [place] WBC (Bld) [#/Vol] 18.5 3.6-10.7 10*3/uL High 10-08-2019 S [facility] (66743) Comment: Performed By: #### BMP3M, MG 3, HEMOG #### [facility] [address] [place], [place] ts gel on 2019-09-15 4 TS GEL ABO Group: Normal 10-07-2019 [facility] (23229) O Rh, Gel: POS Antibody Screen Gel: NEG Comment: Performed By: #### BMP3M, MG 3, HEMOG #### [facility] [address], [place] surgical pathology on 2019-10-07 Surgical [id number] Normal 10-07-2019 [facility] Pathology [facility] System PATHOLOGY AND (17117 ) LABORATORY MEDICINE [address] [place] [address] FINAL SURGICAL PATHOLOGY REPORT NAME: SALLY MCGREGOR : 1980 39 Y [place] CRISTOBAL NO.: [id number] LOCATION: I 5117 01 PROCEDURE 10/07/2019 DATE: [...] determined by the clinical labor atories of [facility]. They have not been cleared by the [facility] od and Drug Administration (FDA). The FDA [...] Results should be interpreted with caution given [facility] raised possibility of false negativity on decalcified specimens. Professional Performing Location: [address] [address]. DEPARTMENT OF PATHOLOGY AND LABORATORY MEDICINE [place], [place] [address] op note on Op Note PATIENT: SALLY MCGREGOR - [facility] ([id number]) ADMISSION DATE: 10/07/2019 SURGERY DATE: 10/07/2019 DATE [...] mass from a prior exam done [facility]. She underwent abdominal prep and [...] with a minimal EBL. Disk[employer] Job ID: [id number] Delon Palacios MD DOD:10/07/2019 10:46 A /semaj DOT:10/07/2019 12:51 P Job Number: [id number] Document Number: [id number] cc: Delon Palacios MD [employer] [facility] [address] Lui Harris MD [address] [place] [address], [address] [facility] [address] follicle stim hormone on 2019-09-15 Follicle Stim Hormone 6.5 m[IU]/mL Normal 09-15-19 [facility] [facility] (28966) Comment: Result Comment: Females: Follicular Phase ...... 2.3- 12.6 Mid-cycle Peak ........ 5.2- 17.5 Luteal Phase .......... 1.7- 12.9 Post-menopausal ....... 12.7 -132.2 Males: 0.7-10.8 Performed By: #### FSH3 #### [facility] [address] [place] [address] us pelvis ta/tv on 2019-09-11 US Pelvis TA/TV Patient Name: SALLY MCGREGOR 09-11-2019 [facility] (47916 ) Ultrasound Exam Date/Time 09/11/2019 14:17:16 EST Exam US Pelvis TA/TV Ordering Physician MARLA ARNDT REBECCA E. Accession Number [id number] CPT4 Codes 98524 (US Pelvis TA/TV), 64566 (US Transvaginal) Reason For Exam right ovarian mass seen on CT, s/p hysterectomy Report EXAMINATION: Transabdominal and transvaginal pelvic ultrasound. COMPARISON: CT scan of 09/11/2019 from [facility]. REASON FOR STUDY: Right ovarian mass; [...] Baso Cnt 0.0 0.0-0.2 10*3/uL Normal 09-05-2019 [facility] (60399) Comment: Performed By: #### HEMDF, BM P3 #### [facility] [address] [place] [address] Abs Neutrophile Cnt 3.9 1.8-7.0 10*3/uL Normal 09-05-2019 [facility] (76960) Comment: Performed By: #### HEMDF, BM P3 #### [facility] [address] [place] [address] Basophils/100 WBC (Bld) 0.3 0.0-2.0 % Normal 2018 [facility] (34753) Comment: Performed By: #### HEMDF, BM P3 #### [place] [address] [place] [address] Eosinophils (Bld) [#/Vol] 0.2 0.0-0.5 10*3/uL Normal 08-15 [facility] (53053) Comment: Performed By: #### HEMDF, BM P3 #### [facility] [place] [address] Eosinophils/100 WBC (Bld) 3.3 1.0-6.0 % Normal 08-15 [facility] (35504) Comment: Performed By: #### HEMDF, BM P3 #### [place] [address] [place] [address] Erythrocyte distribution 12.9 11.5-14.5 % Normal 09-05 [facility] width (RBC) [Ratio] (74465) Comment: Performed By: #### HEMDF, BM P3 #### [place] [address] [place] [address] Granulocytes/100 WBC (Bld) 55.5 40.0-80.0 % Normal [facility] (03900) Comment: Performed By: #### HEMDF, BM P3 #### [place] [address] [place] [address] Hematocrit (Bld) [Volume 34.8 35.0-47.0 % Low 09-05 [facility] fraction] (32740) Comment: Performed By: #### HEMDF, BM P3 #### [facility] [address] [place] [address] Hemoglobin (Bld) [Mass/Vol] 11.5 11.7-16.0 g/dL Low [facility] (57426) Comment: Performed By: #### HEMDF, BM P3 #### [place] [address] [place], [place] Lymphocytes (Bld) [#/Vol] 2.5 1.0-4.3 10*3/uL Normal 08-15 [facility] (74283) Comment: Performed By: #### HEMDF, BM P3 #### [place] [address] [place], [place] Lymphocytes/100 WBC (Bld) 35.4 20.0-40.0 % Normal 08-15 [facility] (34043) Comment: Performed By: #### HEMDF, BM P3 #### [place] [address] [place], [place] MCH (RBC) [Entitic mass] 29.9 26.0-34.0 pg Normal 09-05 [facility] (00122) Comment: Performed By: #### HEMDF, BM P3 #### [place] [address] [place], [place] MCHC (RBC) [Mass/Vol] 33.0 32.0-36.0 % Normal 09-05-20 19 [facility] (45134) Comment: Performed By: #### HEMDF, BM P3 #### [place] [address] [place], [place] MCV (RBC) [Entitic vol] 90.7 79.0-98.0 fL Normal 2018 [facility] (67669) Comment: Performed By: #### HEMDF, BM P3 #### [place] [address] [place], [place] Monocytes (Bld) [#/Vol] 0.4 0.0-0.8 10*3/uL Normal 2018 [facility] (91068) Comment: Performed By: #### HEMDF, BM P3 #### [facility] [facility] [address] [place] [address] Monocytes/100 WBC (Bld) 5.5 2.0-10.0 % Normal 2018 [facility] (63017) Comment: Performed By: #### HEMDF, BM P3 #### [facility] [employer] [place] [address] [address] [place], [place] Platelet mean volume (Bld) 9.8 7.4-10.4 fL Normal [facility] [Entitic vol] (11392 ) Comment: Performed By: #### HEMDF, BM P3 #### [place] [address] [place], [place] Platelets (Bld) [#/Vol] 204 140-440 10*3/uL Normal 2018 [facility] (80905) Comment: Performed By: #### HEMDF, BM P3 #### [place] [address] [place], [place] RBC (Bld) [#/Vol] 3.83 3.80-5.20 10*6/uL Normal 09-05-2019 S [facility] (67310) Comment: Performed By: #### HEMDF, BM P3 #### [place] [address] [place], [place] WBC (Bld) [#/Vol] 7.0 3.6-10.7 10*3/uL Normal 09-05-2019 [facility] (84154) Comment: Performed By: #### HEMDF, BM P3 #### [place] [address] [place], [place] cr urography retrograde w/ + w/o kub on 2019-09-05 CR Urography Patient Name: SALLY MCGREGOR Normal 09-05-2019 [facility] Retrograde w/ + w/o System ([id number]) KUB Diagnostic Radiology Exam Date/Time 09/05/2019 08:12:21 EST Exam CR Urography Retrograde w/ + w/o KUB Ordering Physician MAUREEN STONE Accession Number [id number] CPT4 Codes 72054 () Reason For Exam Renal stone fluro c arm c and p Report A total of 1 minute and 11 seconds of fluoro time was used in the Operating Suite for this procedure. No other report will be generated. 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 [address] Anion gap [Moles/Vol] 7 Normal 09-05-20 [facility] (10670) Comment: Performed By: #### HEMDF, BM P3 #### [facility] [employer] [facility] [address] [place] [address] CO2 [Moles/Vol] 24 22-30 mmol/L Normal 09-05-2019 [facility] (88051) Comment: Performed By: #### HEMDF, BM P3 #### [facility] [address] [place] [address] Creatinine [Mass/Vol] 0.79 0.52-1.25 mg/dL Normal 09-05-20 [facility] (73453) Comment: Performed By: #### HEMDF, BM P3 #### [facility] [employer] [facility] [address] [place] [address] GFR/1.73 sq M > 60.0 >60 mL/min/{1.73_m2} Normal 9 [facility] predicted among Syst em (95604) blacks MDRD (S/P/Bld) [Vol rate/Area] Comment: Performed By: #### HEMDF, BM P3 #### [facility] [employer] [facility] [address] [place] [address] GFR/1.73 sq M > 60.0 >60 mL/min/{1.73_m2} Normal 9 [facility] [employer] predicted among Syst em (09773) non-blacks MDRD (S/P/Bld) [Vol rate/Area] Comment: Result Comment: Source- MDRD equation with creatinine calibration to IDMS(NKDEP) eGFR not recommended for dylon g dose adjustment Performed By: #### HEMDF, BM P3 #### [place] [address] [place], [place] Glucose [Mass/Vol] 85 70-100 mg/dL Normal 09-05-2019 [facility] (62299) Comment: Performed By: #### HEMDF, BM P3 #### [place] [address] [address] [place], [place] Urea nitrogen [Mass/Vol] 5 7-20 mg/dL Low 09-05 [facility] (76903) Comment: Performed By: #### HEMDF, BM P3 #### [place] [address] [address] [place], [place] Chloride [Moles/Vol] 108 98-107 mmol/L High 9 [facility] [facility] (32000) Comment: Performed By: #### HEMDF, BM P3 #### [employer] [employer] [place] [address] [address] [place], [place] Potassium [Moles/Vol] 4.0 3.5-5.1 mmol/L Normal 09-05-20 19 [facility] [facility] (05696) Comment: Performed By: #### HEMDF, BM P3 #### [place] [address] [address] [place], [place] Sodium [Moles/Vol] 140 135-145 mmol/L Normal 09-05-2019 [facility] (71588) Comment: Performed By: #### HEMDF, BM P3 #### [place] [address] [address] [place], [place] magnesium on 2018-09-22 Magnesium [Mass/Vol] 1.9 1.6-2.3 mg/dL Normal 9 [facility] [employer] [facility] (92133) Comment: Performed By: #### BMP3M, MG 3, HEMOG #### [facility] [address], [place] hemogram on 2019-08 Erythrocyte distribution 13.2 11.5-14.5 % Normal 09-04 [facility] width (RBC) [Ratio] (85167) Comment: Performed By: #### BMP3M, MG 3, HEMOG #### [facility] [address], [place] Hematocrit (Bld) [Volume 36.7 35.0-47.0 % Normal 09-04 [facility] fraction] (11593) Comment: Performed By: #### BMP3M, MG 3, HEMOG #### [facility] [address], [place] Hemoglobin (Bld) 12.3 11.7-16.0 g/dL Normal 09-04-2019 [facility] [Mass/Vol] (54005) Comment: Performed By: #### BMP3M, MG 3, HEMOG #### [facility] [address], [place] MCH (RBC) [Entitic mass] 30.6 26.0-34.0 pg Normal 09-04 [facility] (79643) Comment: Performed By: #### BMP3M, MG 3, HEMOG #### [place] [address] [place], [place] MCHC (RBC) [Mass/Vol] 33.5 32.0-36.0 % Normal 09-04-20 19 [facility] (35378) Comment: Performed By: #### BMP3M, MG 3, HEMOG #### [facility] [address] [place], [place] MCV (RBC) [Entitic vol] 91.3 79.0-98.0 fL Normal 2018 [facility] (20983) Comment: Performed By: #### BMP3M, MG 3, HEMOG #### [facility] [address] [place], [place] Platelet mean volume (Bld) 10.4 7.4-10.4 fL Normal [facility] [Entitic vol] (19421 ) Comment: Performed By: #### BMP3M, MG 3, HEMOG #### [facility] [address] [place], [place] Platelets (Bld) [#/Vol] 211 140-440 10*3/uL Normal 2018 [facility] (37644) Comment: Performed By: #### BMP3M, MG 3, HEMOG #### [facility] [address] [place], [place] RBC (Bld) [#/Vol] 4.02 3.80-5.20 10*6/uL Normal 09-04-2019 [facility] (95851) Comment: Performed By: #### BMP3M, MG 3, HEMOG #### [place] [address] [place], [place] WBC (Bld) [#/Vol] 7.1 3.6-10.7 10*3/uL Normal 09-04-2019 [facility] (85814) Comment: Performed By: #### BMP3M, MG 3, HEMOG #### [place] [address] [place], [place] culture urine on 01-09-22 CULTURE URINE CULTURE URINE --> Status: F Normal 09-04-2019 [facility] No growth (<1,000 CFU/ml). (41054) Comment: Order Comment: Specimen Sour ce Comment:Urine, clean catch Performed By: #### C/UR #### [place] [address] [place], [place] basic metabolic panel on 2019-09-04 Potassium [Moles/Vol] 3.5 3.5-5.1 mmol/L Normal 09-04-20 [facility] (26707) Comment: Performed By: #### BMP3M, MG 3, HEMOG #### [facility] [address], [place] Anion gap [Moles/Vol] 9 Normal 09-04-20 [facility] (42916) Comment: Performed By: #### BMP3M, MG 3, HEMOG #### [facility] [address], [place] Calcium [Mass/Vol] 8.8 8.4-10.4 mg/dL Normal 09-04-2019 [facility] (64446) Comment: Performed By: #### BMP3M, MG 3, HEMOG #### [place] [address] [place], [place] CO2 [Moles/Vol] 26 22-30 mmol/L Normal 09-04-2019 [facility] (09391) Comment: Performed By: #### BMP3M, MG 3, HEMOG #### [place] [address] [place], [place] Glucose [Mass/Vol] 76 70-100 mg/dL Normal 09-04-2019 [facility] (02274) Comment: Performed By: #### BMP3M, MG 3, HEMOG #### [place] [address], [place] Urea nitrogen [Mass/Vol] 10 7-20 mg/dL Normal 09-04 [facility] ([id number]) Comment: Performed By: #### BMP3M, MG 3, HEMOG #### [place] [address], [place] Creatinine [Mass/Vol] 0.81 0.52-1.25 mg/dL Normal 09-04-20 19 [facility] (01163) Comment: Performed By: #### BMP3M, MG 3, HEMOG #### [place] [address], [place] GFR/1.73 sq M > 60.0 >60 mL/min/{1.73_m2} Normal 9 [facility] predicted among Syst em (59343) blacks MDRD (S/P/Bld) [Vol rate/Area] Comment: Performed By: #### BMP3M, MG 3, HEMOG #### [place] [address], [place] GFR/1.73 sq M > 60.0 >60 mL/min/{1.73_m2} Normal 9 [facility] predicted among Syst em (13723) non-blacks MDRD (S/P/Bld) [Vol rate/Area] Comment: Result Comment: Source- MDRD equation with creatinine calibration to IDMS(NKDEP) eGFR not recommended for dylon g dose adjustment Performed By: #### BMP3M, MG 3, HEMOG #### [facility] [address], [place] Sodium [Moles/Vol] 138 135-145 mmol/L Normal 09-04-2019 [facility] (01018) Comment: Performed By: #### BMP3M, MG 3, HEMOG #### [facility] [address], [place] Chloride [Moles/Vol] 103 98-107 mmol/L Normal 9 [facility] (22339) Comment: Performed By: #### BMP3M, MG 3, HEMOG #### [facility] [address], [place] cr abdomen ap on 01-09-21 CR Abdomen AP Patient Name: SALLY MCGREGOR 09-03-2019 [facility] ([id number] ) Diagnostic Radiology Exam Date/Time 09/03/2019 17:35:36 EST Exam CR Abdomen AP Ordering Physician MD RACH,CONCHIS J Accession Number [id number] CPT4 Codes 70296 () Reason For Exam nephrolithiasis Report ABDOMEN, [...] Dictated: 09/03/2019 8:46 pm Dictating Physician: DO WAGN ALFRED Signed Date and Time: 09/03/2019 8:47 pm Signed by: DO WANG ALFRED Transcribed Date and Time: 09/03/2019 8:46 cnco on 2019-08-03 CNCO Letter Text Normal 08-03-2019 [facility] ([id number]) xr sacrum/coccyx 3v ap/lat on 2019-07-21 XR SACRUM/COCCYX 3V * * *Final Report* * * Normal 07-21-2019 [place] AP/LAT DATE OF EXAM: Jul 21 2019 11:38AM [facility] WOX 5246 - XR SACRUM/COCCYX 3V AP/LAT / 4 [place] PROCEDURE REASON: multiple diagnoses ([id number]) * * * * Physician Interpretation * [...] BONY ABNORMALITY IN THE PELVIS SEGMENT COCCYX. Bottle Label Inspector: PSCB Transcribe Date/Time: Jul 21 2019 4:01P Dictated by : ESTEE CUMMINGS MD This examination was interpreted and the report reviewed and electronically signed by: ESTEE CUMMINGS MD on Jul 21 2019 4:06PM EST [id number] xr lumbar 3v ap/lat/l5-s1 on 2019-07-21 XR LUMBAR 3V * * *Final Report* * * Normal [place] AP/LAT/L5-S1 DATE OF EXAM: Jul 21 2019 11:38AM [facility] WOX 5228 - XR LUMBAR 3V AP/LAT/L5-S1 / [place] PROCEDURE REASON: multiple diagnoses (48307) * * * * Physician Interpretation * [...] BONY ABNORMALITY IN THE PELVIS SEGMENT COCCYX. Bottle Label Inspector[facility] Transcribe Date/Time: Jul 21 2019 4:01P Dictated by : ESTEE CUMMINGS MD This examination was interpreted and the report reviewed and electronically signed by: ESTEE CUMMINGS MD on Jul 21 2019 4:06PM EST [id number] tsh on 2019-07-21 TSH Qn 1.510 0.270-4.200 uU/mL Normal 07-21-2019 [facility] ([id number]) Comment: Result Comment: If the patie nt [...] et al. 2017 Guide lines of the [place] Thyroid Association for the Diagnosis and Management of Thyroid Disease during and the . Thyroid, 2017:27:3:315-389. Performed By: #### HBA1C, TS Julieth, MORIAH #### [facility] [address] [place] [id number] progress on 2019-07 PROGRESS HNO ID: [id number] Normal 07-21-2019 [facility] Author: Elena Stauffer [place] ([id number]) Service: ? Author Type: ? Type: Progress [...] 21, 2019 11:23 AM PROGRESS HNO ID: [id number] Normal 07-21-2019 [facility] Author: Randi Arias [place] ([id number]) Service: ? Author Type: Physician Commercial Counsel Type: Progress Notes Filed: 07/21/2019 11:26 AM [...] Benign liver cyst 05/24/2010 CT scan at [facility] 11/2009 and 04/2010 showe 4 mm increase in size . No pain. No elevated LFTs on 03/11/2010. - Calculus of kidney 05/17/[address] Nicolas: Hospitalized age 20, and again later -- no procedures so far ([facility], [facility] [place], [facility]) - Dysmenorrhea - Impaired fasting [...] removed - TOTAL ABDOM HYSTERECTOMY 08/31/06 Hysterectomy, [facility] Family History FAMILY HISTORY Problem Relation [...] activity: Yes Partners: Male control/protection: Surgical Comment: [facility] Lifestyle Physical activity: Days per week: Not on file Minutes per session: Not on file Stress: Not on file Relationships Social connections: Talks on phone: Not on file Gets together: Not on file Attends muslim service: Not on file Active member of [...] Cholesterol [Mass/Vol] 206 <200 mg/dL High 019 [facility] (62259) Comment: Result Comment: <200 mg/dL, Desirable 200-239 mg/dL, Borderline hi gh >239 mg/dL, High Performed By: #### HBA1C, TS H, LIPNF #### [facility] [address] [place], [place] [address] Cholesterol in 2.39 <2.54 mg/dL Normal 07-21-2019 [facility] LDL/Cholesterol in HDL [Mass [place] (35832) ratio] Comment: Result Comment: Reference: 1. National Cholesterol Educ ation Program ATP III Guideline At-A-Glance Quick Desk Reference: National Heart, Lung, and Blood [place]. National Institutes of Health. 2001: NIH Publication No. 01-3305. 2. An International Atherosc lerosis Society position paper: global recommendations for the management of dyslipidemia: executive summary, Atherosclerosis. 2014: 232(2):410-413. Performed By: #### HBA1C, TS H, LIPNF #### [facility] [address] [place], [place] [address] Cholesterol.total/Cholesterol in 4.04 <5.10 mg/dL Normal 07-21-2019 [place] HDL [Mass ratio] Cli nghia [place] ([address]324) Comment: Performed By: #### HBA1C, TS H, LIPNF #### [facility] [address] [place], [place] [address] HDL Cholesterol, NF 51 >39 mg/dL Normal 07-21-2019 [facility] (10490) Comment: Result Comment: 40-59 mg/dL, Acceptable >59 mg/dL, High: Negative ri sk factor for coronary heart disease <40 mg/dL, Low: Positive ris k factor for coronary heart disease Performed By: #### HBA1C, TS H, LIPNF #### [facility] [address] [place], [place] [address] LDL Cholesterol, NF 122 <100 mg/dL High 07-21-2019 [facility] (60086) Comment: Result Comment: <100 mg/dL, Optimal 100-129 mg/dL, Near optimal/ above optimal 130-159 mg/dL, Borderline hi gh 160-189 mg/dL, High >189 mg/dL, Very high Secondary prevention optimal LDL Cholesterol levels are recommended to be < 70 mg/dL Performed By: #### HBA1C, TS H, LIPNF #### [facility] [address] [place] [address] Non HDL Chol, NF 155 <130 mg/dL High 07-21-2019 Cl [facility] (17741) Comment: Result Comment: <130 mg/dL, Optimal 130-159 mg/dL, Near optimal/ above optimal 160-189 mg/dL, Borderline hi gh 190-219 mg/dL, High >219 mg/dL, Very high Secondary prevention optimal non HDL Cholesterol levels are recommended to be < 100 mg/dL Performed By: #### HBA1C, TS H, LIPNF #### [facility] [address] [place] [address] Triglycerides, NF 163 <150 mg/dL High 07-21-2019 C [facility] (96197) Comment: Result Comment: <150 mg/dL, Normal 150-199 mg/dL, Borderline hi gh 200-499 mg/dL, High >499 mg/dL, Very high Performed By: #### HBA1C, TS H, LIPNF #### [facility] [address] [place] [address] VLDL Cholesterol, NF 33 <30 mg/dL High 9 [facility] (14373) Comment: Performed By: #### HBA1C, TS H, LIPNF #### [facility] [address] [place] [address] hemoglobin a1c on HbA1c (Bld) [Mass fraction] 5.3 4.3-5.6 % Normal [facility] (13580) Comment: Result Comment: [place] Marya betes Association guidelines indicate that patients with HgbA1c in the range 5.7-6.4% are at increased risk for development of diabetes, and intervention by lifestyle modification may be beneficial. HgbA1c greater o r equal to 6.5% is considered diagnostic of diabetes. Performed By: #### HBA1C, TS H, LIPNF #### [facility] [address] [place] [address] HbA1c (Bld) [Mass fraction] 105 mg/dL Normal [facility] (62692) Comment: Result Comment: eAG: (Jaimiea arnie average glucose) is a calculated value from HgbA1c and is herbicide service sales representative of the average blood glucose level in the last 2-3 month period. Performed By: #### HBA1C, TS H, LIPNF #### [facility] [address] [place], [place] [id number] cnov on 2019-07-21 CNOV Office Visit (FAMPWS) Normal 07-21-[address] [place] [facility] SALLY MCGREGOR ([id number]) 1980 [facility] Date Time Provider Department ([id number]) 07/21/19 10:40 AM JAY ARIAS) FAMPWS During [...] Benign liver cyst 05/24/2010 CT scan at [facility] 11/2009 and 04/2010 showe 4 mm increase in size . No pain. No elevated LFTs on 03/11/2010. - Calculus of kidney 05/17/[address] Nicolas: Hospitalized age 20, a nd again later -- no procedures so far ([facility] [place], [place] [facility]) - Dysmenorrhea - Impaired fasting [...] removed - TOTAL ABDOM HYSTERECTOMY 08/31/06 Hysterectomy, [facility] Family History FAMILY HISTORY Problem Relation [...] activity: Yes Partners: Male control/protection: Surgical Comment: [facility] Lifestyle Physical activity: Days per week: Not on file Minutes per session: Not on file Stress: Not on file Relationships Social connections: Talks on phone: Not on file Gets together: Not on file Attends muslim service: Not on file Active member of [...] Z13.6] Order(s):CONSULT TO NEUROLOGY [9019] Order #: [id number]: 1 FUTURE amitriptyline (ELAVIL) 50 mg tabletTake 1 tablet by mouth da federico at bedtime.Disp: 30 tabletRfl: 5 XR LUMBAR GENERAL 3V AP/LAT/L5-S1 [[id number]] Order #: [id number] FUTURE XR SACRUM/COCCYX 3V AP/LAT [1518807] Order #: [id number] FUT URE TSH BLD [SQTSH] Order #: [id number] FUTURE HGB A1C [EQMVY5O] Order #: [id number] FUTURE LIPID PANEL, NONFASTING [SQLIPNF] Order #: [id number] FUTURE cyclobenzaprine (FLEXERIL) 10 mg tabletTake 1 [...] - 3. Body Temperature 97.81 [degF] 05-17-2020 [facility] (41668) Body Temperature 97.9 [degF] 05-08-2020 [facility] (62414) Body weight 89.9 kg 05-17-2020 [facility] (73751) Body weight 93.89 kg 05-08-2020 [facility] (46199) BP Diastolic 82 mm[Hg] 05-17-2020 [facility] (34816) BP Diastolic 76 mm[Hg] 05-08-2020 [facility] (19704) BP Systolic 124 mm[Hg] 05-17-2020 [facility] (71410) BP Systolic 121 mm[Hg] 05-08-2020 [facility] (76766) Height 154.9 cm 05-08-2020 [facility] (29546) Pulse (Heart Rate) 86 /min [facility]27[facility] Pulse (Heart Rate) 91 /min 05-08-2020 [facility] nghia (29932) Pulse Oximetry 97 % 05-08-2020 [facility] (23510) Respiratory Rate 16 /min [facility]37603[facility] Respiratory Rate 18 /min 05-08-2020 [facility] (54398[facility] Encounters Date Type Reason Provider Location 06-25-2020 - Chart abstracting Postoperative pain Noaman Tanesha [facility] 06-25-2020 [facility] Comment: Refill Request 05-23-2020 - E-mail encounter Isabel Romero) [facility] 05-23-2020 from carer Hugo 03-24-2020 - Emergency Migraine, CORBY Johnston 03-24-2020 department unspecified, not [facility] patient visit intractableCORBY ([id number]) without status [facility] migrainosus CORBY M OLVIN ARIAS UNKNOWN PROVIDER 01-21-2020 - Emergency ANA Johnston 01-21-[facility] ANA ALVARADO ([id number]) JENNIFER ARIAS UNKNOWN PROVIDER 11-25-2019 - Emergency ANA Johnston 11-25-2019 department [facility] patient visit ANA ALVARADO ([id number]) JENNIFER ARIAS UNKNOWN PROVIDER 10-31-2019 - Emergency Lower abdominal NIKHIL Moreira e 10-31-2019 [facility] unspecified NIKHIL Shannon ([id number]) JEAN ARIAS UNKNOWN PROVIDER 04-26-2020 - Letter encounter [facility] 04-26-2020 [facility] 05-14-2020 - Orders Only Liver cyst Johnny Mccall Gastroenterolog [facility] 05-14-2020 [facility] Comment: Liver cyst (Primary Dx) 05-11-2020 - Orders Only Idiopathic acute Johnny Mccall [facility] [place] 05-11-2020 pancreatitis Winn Comment: Idiopathic acute pancreatiti s, unspecified complication status (Primary Dx) surgical referral 05-10-2020 - Orders Only Idiopathic acute Johnny Mccall [facility] [place] 05-10-2020 pancreatitis Winn Comment: Idiopathic acute pancreatiti s, unspecified complication status (Primary Dx) 06-05-2020 - Patient encounter Cyst of pancreas Mala [facility] 06-05-2020 procedure [facility] Comment: Pancreatic cyst (Primary Dx) 05-30-2020 - Patient [facility] Provider Adolfo lyle 05-30-2020 encounter procedure 05-24-2020 - Patient Abdominal Johnny Mccall Gastroenterolog y 05-24-2020 encounter bloating [facility] procedure Comment: Bloating (Primary Dx); Nausea and vomiting, intract ability of vomiting not specified, unspecified vomiting type; Diarrhea, unspecified type 05-23-2020 Patient encounter Postoperative pain Isabel Romero) [facility] procedure Arias [place] Comment: RE: Appointment Request 05-17-2020 - Patient encounter Shoulder pain Xr [facility] [place] [facility] 05-17-2020 procedure Kenia (Jaki) Bartolo Bernard (Jaki) Bartolo Comment: Radiology XR Acute pain of right shoulder (Primary Dx) 04-30-2020 - Patient encounter Generalized abdominal Us [facility] adiology 04-30-2020 procedure pain Mob 1 Comment: Radiology US 05-30-2020 Results Only [facility] Provider [facility] Department 05-08-2020 - Subsequent Generalized Johnny Mccall Ambulatory 05-08-2020 hospital visit by abdominal pain [facility] Surgery physician Comment: Generalized abdominal pain [ R10.84] 06-05-2020 - Telemedicine Mala Almendarez [facility] c 06-05-2020 consultation with patient 05-24-2020 - Telemedicine Johnny Mccall [facility] 05-24-2020 consultation with Hannah patient 06-15-2020 - Telephone encounter Local infection 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 [facility] 06-15-2020 of 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) [facility] SURGERY DEPARTMENT Comment: Multiple Concerns 05-31-2020 - Telephone encounter Johnny Mccall Gastroen terology [place] 05-31-2020 [facility] Comment: Patient Update 05-18-2020 - Telephone Shoulder pain Marcelino Mejia [facility] luke 05-18-2020 encounter [place] Comment: Referral Request 05-07-2020 - Telephone encounter Johnny Mccall Gastroen terology [place] 05-07-2020 [facility] Comment: Patient Update 05-01-2020 - Telephone encounter Johnny Mccall Gastroen terology [place] 05-01-2020 [facility] Comment: Results 04-30-2020 - Telephone encounter Johnny Mccall Gastroen terology [place] 04-30-2020 [facility] Comment: Returning Patient's Call 04-27-2020 - 04-27-2020 Telephone encounter Marcelino Mejia [facility] Comment: Medication request Procedures Procedure Name Date Provider Location Antibody screen 06-11-2020 [facility] ([id number]) Comment: Performed By: #### CBCD1 ### # [place] [address] CARDIAC 05-30-2020 [facility]cf Provider [facility] (94063) Radex shoulder complete minimum 2 05-17-2020 - Kenia (Jaki) [facility] views 05-17-2020 [facility] (75106) SURGICAL PATHOLOGY 05-08-2020 Johnny Mccall [place] [facility] (63842) Colonoscopy flx dx w/collj spec 05-08-2020 [facility] Provider [facility] when pfrmd (31876) Esophagogastroduodenoscopy 05-08-2020 [facility] Provider [facility] transoral diagnostic (98320) Us abdominal real time w/image 04-30-2020 - Johnny Mccall [facility] limited 04-30-2020 [facility] (61724) Urinalysis 10-31-2019 [facility] (15394) Comment: Result Comment: URINALYSIS Performed By: #### [id number] ## ## [facility],[address] [place] [address] Plan of Treatment Plan Description Date Location DTAP,TDAP,TD (2 - Td) DTAP,TDAP,TD (2 - Td) 05-28-2025 - [facility] 05-28-2025 (15752) INFLUENZA (#1) INFLUENZA (#1) 2020 - [facility] 05-15-2020 (02633) MAMMOGRAM MAMMOGRAM 2019 - [facility] 2019 (99696) COLONOSCOPY COLONOSCOPY 1997 - [facility] 1997 (75413) HEPATITIS C SCREENING HEPATITIS C SCREENING 1997 - [facility] 1997 (65662) HIV SCREENING HIV SCREENING 1997 - [facility] 1997 (75599) COLONOSCOPY - COLONOSCOPY - DIAGNOSTIC 05-08-2020 [facility] DIAGNOSTIC Endoscopy Routine (96283) Generalized abdominal pain Loose stools Dyspepsia Gastroesophageal reflux disease, esophagitis presence not specified Other dysphagia History of acute pancreatitis Bloating Nausea and vomiting, intractability of vomiting not specified, unspecified vomiting type 1 Occurrences starting 05/08/2020 until 05/08/2020 Comment: 1 Occurrences starting 05/08 until 05/08/2020 EGD EUS EGD EUS Endoscopy Routine Idiopathic 05-10-2021 [facility] (58429) acute pancreatitis, unspecified complication status 1 Occurrences starting 05/10/2020 until 05/10/2021 Comment: 1 Occurrences starting 05/10 until 05/10/2021 EGD EGD Endoscopy Routine Generalized abdominal 04-15 [facility] (67144) pain Loose stools Dyspepsia Gastroesophageal reflux disease, esophagitis presence not specified Other dysphagia History of acute pancreatitis Bloating Nausea and vomiting, intractability of vomiting not specified, unspecified vomiting type 1 Occurrences starting 05/08/2020 until 05/08/2020 Comment: 1 Occurrences starting 05/08 until 05/08/2020 MRI ABDOMEN WO/W IVCON MRI ABDOMEN WO/W IVCON 07-05-2021 Cl [facility] (80235) Radiology Routine Pancreatic cyst 1 Occurrences starting 06/05/2020 until 07/05/2021 Comment: 1 Occurrences starting 06/05 until 07/05/2021 PRE-PROCEDURE & PRE-PROCEDURE & 05-10-2021 [facility] PRE-OPERATIVE COVID PRE-OPERATIVE COVID (46117) Microbiology Routine Idiopathic acute pancreatitis, unspecified complication status 1 Occurrences starting 05/10/2020 until 05/10/2021 Comment: 1 Occurrences starting 05/10 until 05/10/2021 SURGICAL PATHOLOGY SURGICAL PATHOLOGY Lab Routine [facility] (19792) 05/08/2020 1:17 PM EDT no information [facility] (86688) Immunizations Vaccine Notes Status Date Location Influenza Seasonal influenza, seasonal, (completed) 05-11-2020 - [facility] Inj Age 3+ injectable 05-11-2020 (21348) Influenza Seasonal influenza, seasonal, (completed) 05-31-2019 - [facility] Inj Age 3+ injectable 05-31-2019 (12434) Pneumovax pneumococcal (completed) 05-19-2017 - [facility] c polysaccharide vaccine, 05-19-2017 (441 95) 23 valent Tdap (Age 7+) tetanus toxoid, reduced (completed) 05-28-2015 - [facility] diphtheria toxoid, and 05-28-2015 (4419 5) acellular pertussis vaccine, adsorbed Payers Payer Name Policy Number Location [facility] [id number] [facility] (93431) [place] [employer] [id number] [facility] (96 [id number]) [id number]) [id number] [facility] (78008) [id number] [facility] (23585) [id number] [facility] (00810) [id number] [facility] (32389) The following information is from the original human readable contentNo Payer Records FoundNo Payer Records FoundNo Payer Records FoundNo Payer Records FoundNo Payer Records FoundNo Payer Records FoundNo Payer Records FoundNo Payer Records FoundNo Payer Records Found Social History Type Social History Date Location Description History of tobacco use Current smoker 01-12-2017 [facility] (83397) Alcohol Comment Occasional 11-26-2010 - [facility] 11-26-2010 (20361) History of tobacco use Cigarette Smoker 01-12-2017 [facility] (84243) Cigarettes smoked 05-17-2020 - [place] [facility] current (pack per day) 06-08-2020 (48679) - Reported Tobacco use and Never used 05-17-2020 - [facility] exposure 06-08-2020 (31967) Alcohol intake Current drinker of 05-17-2020 - [place] [facility] alcohol (finding) 06-08-2020 (65150) Tobacco Comment Approx. 3 cigarettes 03-10-2011 - [place] [facility] daily-1 pack every week 03-10-2011 (53315) Tobacco smoking status Former smoker 05-17-2020 - [facility] NHIS 06-08-2020 (62959) Sex Assigned At Not on file [facility] (69361) Exposure to SARS-CoV-2 Not sure [facility] (event) (85086) History SDOH Financial 5 06-08-2020 - [facility] 06-08-2020 (15036) History SDOH Food Worry 1 06-08-2020 - [facility] 06-08-2020 (43913) History SDOH Transport 2 06-08-2020 - [facility] Med 06-08-2020 (09532) Exposure to SARS-CoV-2 Yes [facility] (event) (79590) The following information is from the original [...] IV DATA: Not applicable SIGNED BY: Vianey Ramso April 30, 2020 4:13 PM documented in [...] [facility] MD documented in this encounterKenia Mcfarland (Marketing Senior Recruiter) - 05/17/2020 11:57 AM EDT Visit Date: May 17, 2020 Patient Name: Ms.Nichole Jeana Mcgregor Date of : 1980 MRN/E #: [id number] Chief Complaint Patient presents with: right shoulder [...] is provided by the patient. No language teacher was used. PAIN EVALUATION 05/17/2020 [...] Benign liver cyst 05/24/2010 CT scan at [facility] 11/2009 and 04/2010 showe 4 mm increase in size. No pain. No elevated LFTs on 03/11/2010. ? Calculus of kidney 05/17/[address] Nicolas: Hospitalized age 20, and again later -- no procedures so far ([facility]) ? Dysmenorrhea ? History of [...] go to the ED. Patient went to [place] ED and mentions 'nothing was done. They [...] note she presented to the ED in [place] in January 2020 for abdominal pain of [address] abdomen was essentially unremarkable including pancreas. Was found to have lipase of 193 on 02/15/2020. Amylase normal. Hepatic function panel. ? Has h/o cholecystectomy in 1998. PAST MEDICAL HISTORY Diagnosis Date ? Allergic rhinitis, cause unspecified 05/17/2008 Spring and summer ? Benign liver cyst 05/24/2010 CT scan at [facility] 11/2009 and 04/2010 showe 4 mm increase in size. No pain. No elevated LFTs on 03/11/2010. ? Calculus of kidney 05/17/[address] Nicolas: Hospitalized age 20, and again later -- no procedures so far ([facility] [place], [facility]) ? Cancer (HCC) ? Diverticulosis [...] removed ? TOTAL ABDOM HYSTERECTOMY 08/31/06 Hysterectomy, [facility] FAMILY HISTORY Problem Relation Age of [...] the ED yesterday - [place] [facility] and was told that pancreas levels [...] for nausea. Advised to go to the [facility] ED if no improvement in symptoms. 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) 05/08/2020 12:13 PM Advance Directive(s) 05/25/2020 7:47 AM Documents on File Type Date Recorded 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) 05/08/2020 12:13 PM Advance Directive(s) 05/25/2020 7:47 AM Advance Directive(s) 06/08/2020 9:30 AM Documents on File Type Date Recorded 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) 05/08/2020 12:13 PM Advance Directive(s) 05/25/2020 7:47 AM Advance Directive(s) 06/08/2020 9:30 AM Documents on File Type Date Recorded 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) 05/08/2020 12:13 [...] NEW PATIENT VISIT LEVEL 5 [facility] [address] [facility] [address] [facility] [place], [place] [id number] Phone: Fax: Status Reason Specialty Diagnoses / Referred By Referred To Procedures Contact Contact Authorized PCP Requested Orthopedics Diagnoses Acute shoulder pain, unspecified laterality Marcelino Mejia Referral Procedures CONSULT TO ORTHOPAEDICS NEW PATIENT VISIT LEVEL 5 [address] [place] [address] Status Reason Specialty Diagnoses / Referred By Referred To Procedures Contact Contact Pending Review Auto-Generated MR IMAGING Diagnoses Pancreatic cyst Mala Almendarez Mr Imaging Referral Procedures MRI ABDOMEN WO/W IVCON MRI,ABDOMEN,W&WO CONTRS [address] [address] Status Reason Specialty Diagnoses / Procedures Referred By C ryan Referred To Contact Closed Diagnoses Post-op pain Mala Almendarez [address] [address] Phone: Instructions Patient InstructionsKenia Mcfarland) - 05/17/2020 [...] BE BASED ON THE PRIMARY CLINICAL RECORDS. [facility] provides no warranty or guarantee of the accuracy or completeness of information in this document. UNRECOGNIZED CONTENT PROVIDED BELOW FOR UNRECOGNIZED SECTION Source Comments In the event this information is protected by the Federal Confidentiality of Alcohol and Drug Abuse Patient Records regulations: The Federal rules restrict any use of the information to criminally investigate or prosecute any alcohol or drug abuse patient.[facility] the event this information is protected by the Federal Confidentiality of Alcohol and Drug Abuse Patient Records regulations: The Federal rules restrict any use of the information to criminally investigate or prosecute any alcohol or drug abuse patient.[facility] Hospital[facility] the event this information is protected by the Federal Confidentiality of Alcohol and Drug Abuse Patient Records regulations: The Federal rules restrict any use of the information to criminally investigate or prosecute any alcohol or drug abuse patient.[facility] Hospital[facility] the event this information is protected by the Federal Confidentiality of Alcohol and Drug Abuse Patient Records regulations: The Federal rules restrict any use of the information to criminally investigate or prosecute any alcohol or drug abuse patient.[facility] HospitalIn the event this information is protected by the Federal Confidentiality of Alcohol and Drug Abuse Patient Records regulations: The Federal rules restrict any use of the information to criminally investigate or prosecute any alcohol or drug abuse patient.[facility] HospitalIn the event this information is protected by the Federal Confidentiality of Alcohol and Drug Abuse Patient Records regulations: The Federal rules restrict any use of the information to criminally investigate or prosecute any alcohol or drug abuse patient.[facility] HospitalIn the event this information is protected by the Federal Confidentiality of Alcohol and Drug Abuse Patient Records regulations: The Federal rules restrict any use of the information to criminally investigate or prosecute any alcohol or drug abuse patient.[facility] HospitalIn the event this information is protected by the Federal Confidentiality of Alcohol and Drug Abuse Patient Records regulations: The Federal rules restrict any use of the information to criminally investigate or prosecute any alcohol or drug abuse patient.[facility] HospitalIn the event this information is protected by the Federal Confidentiality of Alcohol and Drug Abuse Patient Records regulations: The Federal rules restrict any use of the information to criminally investigate or prosecute any alcohol or drug abuse patient.[facility] HospitalIn the event this information is protected [...] or prosecute any alcohol or drug abuse patient.[facility] HospitalIn the event this information is protected by the Federal Confidentiality of Alcohol and Drug Abuse Patient Records regulations: The Federal rules restrict any use of the information to criminally investigate or prosecute any alcohol or drug abuse patient.[facility] HospitalIn the event this information is protected by the Federal Confidentiality of Alcohol and Drug Abuse Patient Records regulations: The Federal rules restrict any use of the information to criminally investigate or prosecute any alcohol or drug abuse patient.[facility] HospitalIn the event this information is protected by the Federal Confidentiality of Alcohol and Drug Abuse Patient Records regulations: The Federal rules restrict any use of the information to criminally investigate or prosecute any alcohol or drug abuse patient.[facility] HospitalIn the event this information is protected by the Federal Confidentiality of Alcohol and Drug Abuse Patient Records regulations: The Federal rules restrict any use of the information to criminally investigate or prosecute any alcohol or drug abuse patient.[facility] HospitalIn the event this information is protected by the Federal Confidentiality of Alcohol and Drug Abuse Patient Records regulations: The Federal rules restrict any use of the information to criminally investigate or prosecute any alcohol or drug abuse patient.[facility] HospitalIn the event this information is protected by the Federal Confidentiality of Alcohol and Drug Abuse Patient Records regulations: The Federal rules restrict any use of the information to criminally investigate or prosecute any alcohol or drug abuse patient.[facility] HospitalIn the event this information is protected by the Federal Confidentiality of Alcohol and Drug Abuse Patient Records regulations: The Federal rules restrict any use of the information to criminally investigate or prosecute any alcohol or drug abuse patient.[facility] HospitalIn the event this information is protected by the Federal Confidentiality of Alcohol and Drug Abuse Patient Records regulations: The Federal rules restrict any use of the information to criminally investigate or prosecute any alcohol or drug abuse patient.[facility] HospitalIn the event this information is protected by the Federal Confidentiality of Alcohol and Drug Abuse Patient Records regulations: The Federal rules restrict any use of the information to criminally investigate or prosecute any alcohol or drug abuse patient.[facility] HospitalIn the event this information is protected by the Federal Confidentiality of Alcohol and Drug Abuse Patient Records regulations: The Federal rules restrict any use of the information to criminally investigate or prosecute any alcohol or drug abuse patient.[facility] HospitalIn the event this information is protected by the Federal Confidentiality of Alcohol and Drug Abuse Patient Records regulations: The Federal rules restrict any use of the information to criminally investigate or prosecute any alcohol or drug abuse patient.[facility] HospitalIn the event this information is protected by the Federal Confidentiality of Alcohol and Drug Abuse Patient Records regulations: The Federal rules restrict any use of the information to criminally investigate or prosecute any alcohol or drug abuse patient.[facility] UNRECOGNIZED CONTENT PROVIDED BELOW FOR UNRECOGNIZED [...] dyspepsia,gerd,dysphagia 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, 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 [place] ENDOSCOPY Procedures COLONOSCOP W/ OR W/O [facility] SPEC EGD W/O OR W/BRUSH/WASH COLONOSCOPY W/EGD aCl [address] [place], [place] [address] Phone: [place], [place] [phone] Fax: Reason Onset Date Comments Patient [...] DATE CREATED AUTHOR AUTHOR'S ORGANIZATIO N 10/21/2019 [facility] DATE CREATED AUTHOR AUTHOR'S ORGANIZATIO N 04/06/2020 [facility] DATE CREATED AUTHOR AUTHOR'S ORGANIZATIO N 02/26/2020 [facility] [place] ([place]) DATE CREATED AUTHOR AUTHOR'S ORGANIZATIO N 06/11/[address] [facility] DATE CREATED AUTHOR AUTHOR'S ORGANIZATIO N 06/21/2020 [facility] DATE CREATED AUTHOR AUTHOR'S ORGANIZATIO N 06/26/2020 [facility] UNRECOGNIZED CONTENT PROVIDED BELOW FOR UNRECOGNIZED [...] pcp would send Rx for phenergan to [facility] [place]. Reports she's had nausea for [...] panel was not drawn, left message with [place] lab to contact patient for redraw Pierce [...] or do not improve. Taty Perea APRN, [employer] documented in this encounter UNRECOGNIZED CONTENT PROVIDED [...]
== END 2020-02-12 14:01 | disposition home or self-care (01) | DRG 282 ==
LOC: ED 14:54 → MS3 17:06
PROVIDERS: Admitting Provider Family Medicine; Emergency Provider Emergency Medicine; PCP Physician Assistant; Visit Provider Family Medicine
DX: K85.90 Acute pancreatitis without necrosis or infection, unspecified (principal); F41.9 Anxiety disorder, unspecified; F31.9 Bipolar disorder, unspecified; E78.5 Hyperlipidemia, unspecified; K21.9 Gastro-esophageal reflux disease without esophagitis; G89.29 Other chronic pain; F51.04 Psychophysiologic insomnia; I45.10 Unspecified right bundle-branch block; R91.1 Solitary pulmonary nodule; Z87.11 Personal history of peptic ulcer disease; Z80.3 Family history of malignant neoplasm of breast; Z82.49 Family history of ischemic heart disease and other diseases of the circulatory system; Z83.3 Family history of diabetes mellitus; Z85.41 Personal history of malignant neoplasm of cervix uteri; Z85.42 Personal history of malignant neoplasm of other parts of uterus; Z85.43 Personal history of malignant neoplasm of ovary; Z90.49 Acquired absence of other specified parts of digestive tract; Z90.710 Acquired absence of both cervix and uterus; Z98.51 Tubal ligation status
CPT/HCPCS: 36415; 80048; 80053; 83690; 83735; 84478; 85025; 99284; J7030; J7050; A4216; J2405

== ENCOUNTER 2020-02-18 16:06 | Emergency (ER) | payer MEDICAID, SELFPAY ==
[2020-02-09 16:32] VITALS: BMI 35.9
[2020-02-18 16:07] VITALS: BP 121/66; PULSE 89; RESP 15; O2SAT 99
[2020-02-18 16:12] VITALS: BP 121/66; PULSE 86; RESP 15; TEMP 36.9; O2SAT 100; BMI 34.7
--- NOTE | 2020-02-18 16:24 | ED.VIS.GEN ---
History of Present Illness Chief Complaint: Abd Pain Informant: Patient Narrative: Patient presents for the evaluation of upper abdominal and right upper quadrant abdominal pain. She states that she was recently admitted twice for pancreatitis. She states that today around noon she ate some hamburger helper was having some discomfort so she laid down when she woke at 3:00 she states she was screaming in pain. She is out of her oxycodone. She states she has an appoint with a meat apprentice in about a month. She did follow-up from her hospital admission with her PCP. They felt that her pancreatitis was most likely not related to her Seroquel and after talking with her psychiatrist they restarted the Seroquel and Zoloft. Patient has an ED care plan which was reviewed. This is her 16th ED visit this year. Her last hospitalization was reviewed. Past Medical History - Allergies and Home Meds Allergies/Adverse Reactions: Allergies ketorolac tromethamine [From Toradol] Allergy (Verified 02/18/20 16:07) Rash metronidazole [From Flagyl] Allergy (Verified 02/18/20 16:07) Hives Penicillins Allergy (Verified 02/18/20 16:07) Hives promethazine HCl [From Phenergan] Allergy (Verified 02/18/20 16:07) Hives aspirin Adverse Reaction (Verified 02/18/20 16:07) Upset Stomach CT DYE Allergy (Uncoded 02/18/20 16:07) Anaphylaxis IV contrast Allergy (Uncoded 02/18/20 16:07) Anaphylaxis Primary Care Physician: Isabel Arias PA [NON-STAFF] - 3-5 Days Surgical History: cholecystectomy, hysterectomy, - - Oophorectomy Smoking Status: Current some day smoker Review of Systems General: Denies: Chills, Fever, Sweats Eyes: Denies: Visual changes - bilaterally, Diplopia ENT: Denies: Rhinorrhea, Sore throat Cardiovascular: Denies: Chest pain, Palpitations Respiratory: Denies: Dyspnea, Cough, Dyspnea on exertion Gastrointestinal: Reports: Abdominal pain, Diarrhea, Constipation. Denies: Nausea, Vomiting, Melena, Hematochezia Genitourinary: Denies: Dysuria, Hematuria, Frequency Musculoskeletal: Denies: Back pain, Extremity Pain Skin: Denies: Rash, Wounds Neurological: Denies: Headache, Weakness, Numbness Physical Exam Vital Signs/Narrative: Vital Signs Temp Pulse Resp BP Pulse Ox 02/18/20 16:12 98.5 F 86 15 121/66 H 100 02/18/20 16:07 89 15 121/66 H 99 Inital Vital Signs reviewed: Yes General: Well nourished, Well developed, No Acute Distress Head: Normocephalic, Atraumatic Eyes: Perrl, EOMI ENT: Moist mucous membranes, No rhinorrhea Neck: Supple, Nontender Cardiovascular: Regular rate, Regular rhythm, No murmurs Respiratory: No distress, CTA bilaterally, Chest nontender Abdomen: Soft, Nondistended, Normal bowel sounds, Tender. Negative for: Rebound tenderness Back: Nontender, Normal Inspection Extremities: Nontender, No edema Skin: Normal color, No rash Neurological: Alert, Oriented x3, Cranial nerves II-XII grossly intact, Normal Strength, Normal Sensation Psychological: - - She has pressured speech and is tearful. As the interview progresses she does calm down and start speaking normally. Diagnostic/Tx/Re-eval - Medical Decision Making Basic labs including lipase and liver enzymes were obtained. Lipase level was 809. However amylase was negative. test was positive and a quant of 6 was ordered but the patient has had a hysterectomy and that information was not relayed to me during my initial history and physical. Patient received a liter of IV fluids. Gave her 10 mg of oxycodone. Patient is trying to find a ride home and she would prefer not to have to be admitted and see if she can control her pain at home with oxycodone. That this is a reasonable approach. Would recommend bowel rest today tomorrow drinking only water. ED Disposition - Plan for ED Patient: Disposition: Home or Assisted Living Diagnosis: Pancreatitis Instructions: ED Pancreatitis Prescriptions: Oxycodone [Oxyir] 5 mg PO Q6H PRN PRN 3 Days #12 tab PRN Reason: pain Prescription Printed Referrals: Isabel Arias PA [NON-STAFF] - 3-5 Days
[2020-02-18 16:37] LABS: Absolute Lymphocyte Count 2.85 X10^3/uL (0.83-4.51); Absolute Neutrophil Count 6.4 X10^3/uL (2.0-7.7); Basophil# 0.06 X10^3/uL; Basophil% 0.6 % (0-1); Eosinophil# 0.36 X10^3/uL; Eosinophils% 3.5 % (0-5); Hematocrit 39.7 % (37-47); Hemoglobin 12.3 g/dL (12.0-15.0); Lymphocyte # 2.85 X10^3/ul (4.0); Lymphocyte % 27.8 % (19-41); Mean Corpuscular Hgb 29.2 pg (27.0-32.0); Mean Corpuscular Volume 94.3 fL (81-99); Mean Platelet Vol. 10.9 fl (6.2-12.0); Monocyte# 0.57 X10^3/uL; Monocyte% 5.6 % (0-10); NRBC Flagged by Analyzer 0 % (0-5); Neutrophil # 6.35 X10^3/uL (2.7-7.7); Platelet Count 412 K/mm3 (150-450); RBC Distribution Width CV 14.2 % (11.6-14.6); RBC Distribution Width SD 49.5 fl (35.1-43.9); Red Blood Count 4.21 M/mm3 (4.2-5.4); White Blood Count 10.2 K/mm3 (4.4-11.0)
[2020-02-18 16:45] LABS: AST(SGOT) 25 U/L (15-37); Alanine Aminotransfer ALT/SGPT 33 U/L (13-56); Alkaline Phosphatase 103 U/L (45-117); Amylase 52 U/L (25-115); Anion Gap 6 (5-15); BUN 14 mg/dL (7-18); BUN/Creat Ratio 14.1 RATIO (10-20); Bilirubin, Direct 0.11 mg/dL (0.00-0.30); Calcium,Total 9.2 mg/dL (8.5-10.1); Chloride 106 mmol/L (98-107); Creatinine, Serum 0.99 mg/dL (0.55-1.02); EST Glomerular Filtration Rate 66 mL/min (>60); Est Glom Filt Rate - Afr Amer 79 mL/min (>60); Globulin 4.2 g/dL (2.2-4.2); Glucose 101 mg/dL (74-106); Lipase 809 U/L (73-393); Potassium 3.7 mmol/L (3.5-5.1); Protein, Total 8.2 g/dL (6.4-8.2); Sodium Level 140 mmol/L (136-145)
[2020-02-18 16:46] VITALS: BP 121/66; PULSE 86; RESP 15; TEMP 36.9; O2SAT 100
[2020-02-18 16:54] LABS: Internal QC Validated? YES +Cl - CLEAR BKGD
[2020-02-18 16:56] LABS: Pregnancy, Serum, hCG Quali. POSITIVE Negative
[2020-02-18] MEDS: 0.9% Normal Saline 1,000 ML 999 ML IV (17:10)
[2020-02-18] MEDS: oxyCODONE 5 MG Tablet 10 MG PO (17:24)
[2020-02-18 17:39] LABS: hCG Titer Quant., Serum 6 mIU/mL (1-3)
[2020-02-18 18:29] VITALS: BP 119/89; PULSE 88; RESP 18
--- OUTSIDE RECORDS SUMMARY | 2020-07-01 09:02 | XMS RPT_ITS | CCD ---
:1980 External Reference #:[id number] Author Organization [facility] Care Team Providers Name Role Phone Hanna Mejia Primary Care Provider Hanna Mejia Unavailable JEAN, E Admitting Unavailable JEANShiva RICE Attending Unavailable MD ROOSEVELT Referring Unavailable Shiva PENA Primary Care Unavailable CHAZ ARIAS Consulting Unavailable [...] Repository (Qualifier Value) Cephalexin Itching 10-20-2019 - [facility] ([id number]) Chlorhexidine Rash 10-29-2016 - [facility] (57588) CONTRAST MEDIA, Moderate Mello [facility] IODINE RELATED ([facility]) Repository (Qualifier Value) Ibuprofen GI Upset Low 06-18-2016 - [facility] ([id number]) Ibuprofen Moderate [facility] ([facility]) Repository (Qualifier Value) Iodine Shortness of Breath Low 05-17-2008 - [facility] (39288) Ketorolac Moderate [facility] ([facility]) Repository (Qualifier Value) Ketorolac Rash 05-25-2020 - [facility] (33039) metroNIDAZOLE Moderate [facility] ([facility] Mod[facility]) Repository (Qualifier Value) Penicillins [facility][id number][facility] Penicillins Moderate [facility] ([facility]) Repository (Qualifier Value) predniSONE Other: See Comments Low [facility] (36970) Promethazine Moderate [facility] ([facility] Mod[facility]) Repository (Qualifier Value) Salicylic Acid Other: See Comments Low 01-27-2011 - [facility] and [facility] (23941) traMADol Rash 05-25-2020 - [facility] (73814) Medications Medication Name Sig Date Prescriber Location Albuterol albuterol HFA (VENTOLIN [facility] Provider [facility] (70898) HFA) 90 mcg/actuation inhaler Inhale 2 Puffs as instructed every 4 hours as needed. 0 Active Comment: Inhale 2 Puffs as instructed every 4 hours as needed. Bifidobacterium Bifidobacterium 04-26-2020 - Johnny [facility] (ALIGN) 4 mg 07-25-2020 [facility] (09915) cap Take 1 capsule by mouth once daily. 30 capsule 2 04/26/2020 07/25/2020 Active Comment: Take 1 capsule by mouth once daily. Clindamycin clindamycin (CLEOCIN) 06-15-2020 - Jonh (Res) [facility] 300 mg capsule 06-26-2020 [facility] ([id number]) Indications: Incisional infection Take 1 capsule by mouth four times daily for 5 days. 20 capsule 0 06/21/2020 06/26/2020 Active Comment: Take 1 capsule by mouth four times daily for 5 days. diazePAM diazePAM (VALIUM) 5 mg 06-05-2020 - [facility] tablet Indications: 06-07-2020 Mala [facility] (28761) Pancreatic cyst Take 1 tablet by mouth once daily for 2 days. 2 tablet 0 06/05/2020 06/07/2020 Active Comment: Take 1 tablet by mouth once daily for 2 days. Dicyclomine dicyclomine (BENTYL) 04-26-2020 - Johnny Mccall [facility] 10 mg capsule Take 1 05-24-[address] [facility] ([id number]) capsule by mouth before meals and at bedtime. Use as directed 90 capsule 1 04/26/2020 05/24/2020 Discontinued Comment: Take 1 capsule by mouth befo re meals and at bedtime. Use as directed diphenhydrAMINE diphenhydrAMINE (BENADRYL) 03-29-2019 [facility] Provide r [facility] 25 mg capsule Take 50 mg (44 195) by mouth every 6 hours as needed. 0 03/29/2019 Active Comment: Take 50 mg by mouth every 6 hours as needed. Docusate docusate sodium 06-21-2020 Jonh (Res) [facility] (COLACE) 100 mg capsule [place] (441 95) Take 1 capsule by mouth twice daily. 60 capsule 0 06/21/2020 Active Comment: Take 1 capsule by mouth twic e daily. Estradiol estradiol (ESTRACE) 2 mg 03-23-2020 [facility] Provider [facility] ([id number]) tablet Take 2 mg by mouth once daily. 0 03/23/2020 Active Comment: Take 2 mg by mouth once kehinde y. HYDROmorphone HYDROmorphone 06-28-2020 - Mala [facility] Cli nghia (HYDROMORPHONE) 2 mg 07-05-2020 ([id number]) tablet Indications: Post-op pain Take 1 tablet by mouth every 4 hours as needed for Pain for up to 7 days. 40 tablet 0 06/28/2020 07/05/2020 Active HYDROmorphone (HYDROMORPHONE) 06-12-2020 - 06-19-2020 [facility] 2 mg tablet Indications: ([id number]) Post-op pain Take 1 tablet by mouth every 3 hours as needed for Pain for up to 7 days. 40 tablet 0 06/12/2020 06/19/2020 Active Comment: Take 1 tablet by mouth every 3 hours as needed for Pain for up to 7 days. Take 1 tablet by mouth every 4 hours as needed for Pain for up to 7 days. Hyoscyamine hyoscyamine (LEVSIN) 05-24-2020 - [facility] 0.125 mg tablet Take 06-26-2020 [facility] ([id number]) 1 tablet by mouth every 6 hours as needed. 60 tablet 1 06/26/2020 Active Comment: Take 1 tablet by mouth every 6 hours as needed. iv contrast (will iv contrast (will be 06-05-2020 - Mala Almendarez [facility] be provided with provided with 06-06-2020 Mala Almendarez (88065) radiology test) radiology test) MRI ABDOMEN Inject, [...] metroNIDAZOLE metroNIDAZOLE (FLAGYL) 04-26-2020 - Johnny Mccall [facility] 500 mg tablet Take 1 05-03-2020 [facility] (15671) tablet by mouth three times daily for 7 days. 21 tablet 0 04/26/2020 05/03/2020 Active Comment: Take 1 tablet by mouth three times daily for 7 days. Naloxone naloxone 4 mg/actuation 06-21-2020 Jonh (Res) [facility] nasal spray (NARCAN) Use [place] (19 195) 1 spray in one nostril as [...] oxyCODONE IR 06-21-2020 - Maria Luisa Trejo [facility] (ROXICODONE) 5 mg 06-26-2020 ([id number]) immediate release tablet Indications: Benign liver cyst Take 1 tablet by mouth every 8 hours as needed for up to 5 days. 15 tablet 0 06/21/2020 06/26/2020 Active oxyCODONE IR 05-29-2020 - Sorin (Res) [facility] (ROXICODONE) 5 mg 06-03-2020 Alhalal[facility] (99187) immediate release tablet Indications: Intractable nausea and [...] 5 days. pantoprazole pantoprazole 03-05-2020 - Marcelino Fer[facility] (PROTONIX) 40 mg 04-30-2020 [facility] (58329) tablet Take 1 tablet by mouth daily before breakfast. Take on empty stomach, 1/2 hr before meal. 30 tablet 3 04/30/2020 Active Comment: Take 1 tablet by mouth daily before breakfast. Take on empty stomach, 1/2 hr before meal. POLYETHYLENE GLYCOL polyethylene glycol 06-21-2020 - Jonh ([facility] 3350 3350 (MIRALAX) 17 07-22-2020 [facility] (44 195) gram/dose powder Dissolve 1 packet in 4-8 ounces of liquid and drink by mouth once daily as directed. 476 g 0 06/21/2020 07/22/2020 Active Comment: Dissolve 1 packet in 4-8 oun simi of liquid and drink by mouth once daily as directed. POLYETHYLENE GLYCOL peg 3350-Electrolytes 04-26-2020 - Johnny Mccall [place] 3350 / Potassium (GOLYTELY) 04-26-2020 [facility] (441 95) Chloride / Sodium [phone] [phone] Johnny Mccall Bicarbonate / gram suspension [facility] Sodium Chloride / Indications: sodium sulfate Generalized [...] 1 mg cap Take 1 [facility] Provider [facility] (86374) mg by mouth daily at bedtime. 0 Active Comment: Take 1 mg by mouth daily at bedtime. pregabalin pregabalin (LYRICA) 300 06-25-2020 - Mala Almendarez [facility] mg capsule Indications: 07-09-2020 (441 95) Post-op pain Take 1 capsule by mouth twice daily for 14 days. 28 capsule 0 06/25/2020 07/09/2020 Active Comment: Take 1 capsule by mouth twic e daily for 14 days. Promethazine promethazine (PHENERGAN) 05-24-2020 [facility] 25 mg tablet Take 1 [facility] (99009) tablet by mouth every 8 hours as needed (for nausea). 10 tablet 0 05/24/2020 Active Comment: Take 1 tablet by mouth every 8 hours as needed (for nausea). QUEtiapine QUEtiapine (SEROQUEL) 02-23-2020 [facility] Take 1 (76186) tablet by mouth once daily. 0 02/23/2020 Active Comment: Take 1 tablet by mouth once daily. Sertraline sertraline (ZOLOFT) 100 02-23-2020 Marcelino Ferreira [facility] mg tablet Take 1 tablet (441 95) by mouth once daily. 0 02/23/2020 Active Comment: Take 1 tablet by mouth once daily. Sucralfate sucralfate (CARAFATE) 1 05-24-2020 [facility] hu [facility] gram tablet Take 1 (55129) tablet by mouth four times daily. 30 tablet 0 05/24/2020 Active Comment: Take 1 tablet by mouth four times daily. Problems Active Problems Category Problem Name Status Date Location Abdominal pain Lower abdominal pain, Active 10-31-2019 - Mello Johnston unspecified [facility] (73020) Anxiety disorders Generalized anxiety Active 03-31-2016 - [facility] disorder (74749) Esophageal disorders Gastroesophageal reflux Active [facility] disease (24746) Headache; including Migraine without aura Active 05-17-2008 [facility] (27170) Mood disorders Reactive depression Active 03-31-2016 - [facility] (situational) (53000) Nausea and vomiting Nausea and vomiting Active 05-25-2020 - [facility] (66063) Other disorders of Indigestion Active [facility] stomach and duodenum (10568) Other gastrointestinal Abdominal bloating Active [facility] disorders (68304) Other gastrointestinal Dysphagia Active [facility] disorders (78688) Other gastrointestinal Loose stool Active [facility] disorders (10112) Other gastrointestinal Personal history of Active [facility] disorders other diseases of the (50158 ) digestive system Other gastrointestinal Diarrhea Active [facility] disorders (02902) Other infections; Local infection of wound Active [facility] including parasitic (89163) Other liver diseases Liver cyst Active 05-24-2010 - [facility] (59352) Other nervous system Postoperative pain Active 06-19-2020 - [facility] disorders (32160) Other nervous system Chronic pain syndrome Active 06-06-2020 - [facility] disorders (24055) Other non-traumatic joint Shoulder pain Active [facility] disorders (61587) Other upper respiratory Allergic rhinitis Active 05-17-2008 - [facility] disease (86628) Pancreatic disorders (not Idiopathic acute Active [facility] diabetes) pancreatitis (24303) Paralysis Weakness of right leg Active 02-23-2017 - [facility] (18095) Substance-related Smoker Active 05-17-2008 - Melloreina Baumaner willem disorders [facility] (27579) Unclassified Patient encounter status Active 05-17-2008 - [facility] (46661) Past or Other Problems Category Problem Name Status Date Location Allergic reactions Allergy status to Completed 10-31-2019 - Mello [facility] narcotic agent status [facility] (51203) Blindness and vision Blurring of visual Completed 02-23-2017 - [facility] defects image (96554) Calculus of urinary Kidney stone Completed 05-17-2008 - [facility] tract (03978) Diabetes mellitus Impaired fasting Completed 05-17-2008 - [facility] without complication glycaemia (81876) Miscellaneous mental Adjustment insomnia Completed 03-31-2016 - [facility] health disorders (20631) Other connective tissue Muscle weakness of Completed 02-23-2017 - [facility] disease upper limb (48439) Other connective tissue Trochanteric bursitis Completed 06-18-20 16 - [facility] disease (20522) Other diseases of Hydroureter Completed 02-05-2017 - [facility] kidney and ureters (89249) Other diseases of Hydronephrosis Completed 02-05-2017 - [facility] kidney and ureters (81056) Other lower respiratory Multiple nodules of Completed 01-22-2020 - [facility] disease lung (21954) Other nervous system Numbness of face Completed 02-23-2017 - [facility] disorders (97969) Other nervous system Numbness of lower limb Completed 02-23-2017 - [facility] disorders (50105) Other nervous system Numbness of upper limb Completed 02-23-2017 - [facility] disorders (52207) Other non-traumatic Hip pain Completed 06-18-2016 - [facility] joint disorders (52493) Other screening for MRI of lumbar spine Completed 02-23-2017 - [facility] suspected conditions abnormal (48246) (not mental disorders or infectious disease) Ovarian cyst Cyst of ovary Completed 07-15-2012 - [facility] ic (91631) Residual codes; Acquired absence of Completed 10-31-2019 - [facility] unclassified both cervix and uterus [facility] (61515) Residual codes; Acquired absence of Completed 10-31-2019 - [facility] unclassified other specified parts [facility] of digestive tract (13200) Residual codes; FH: Diabetes mellitus Completed 05-17-2008 - [facility] unclassified (77657) Spondylosis; Pain in cervical spine Completed 06-18-2016 - [facility] intervertebral disc (10295) disorders; other back problems Results Result Name Value Range Unit Interpretation Flag Date Location obsolete on 2020-06 OBSOLETE Refill (AKPRAD) Normal 06-28-2020 Akr on SALLY Dawson ([id number]) 1980 F Medical Date Time Provider Department Center 06/28/20 MALA ALMENDAREZ ([id number]) During your visit today, we recorded the following informati on about you: Allergies As of Date: 06/28/2020 Noted Allergy Reaction PENICILLINS 12/07/2009 2 - [...] Date Reviewed: 06/19/2020 Reviewed by: Silvia (Rn) LUCIUS Gomez - Fully Assessed Reason for Visit: Refill Request [94] Primary Visit Diagnosis:Post-op pain [G89.18] Order(s):HYDROmorphone (HYDROMORPHONE) 2 mg tabletTake 1 tablet by mouth every 4 hours as needed for Pain for up to 7 days.Disp: 40 tabletR fl: 0 Prescriptions as of 06/28/2020 Sig: HYDROMORPHONE 2 MG TABLET Take 1 tablet by mouth every * HYOSCYAMINE SULFATE 0.125 MG * Take 1 tablet by mouth every * PREGABALIN 300 MG CAPSULE Take 1 capsule by mouth twice* DOCUSATE SODIUM 100 MG CAPSULE Take 1 capsule by mouth twice * POLYETHYLENE GLYCOL 3350 17 G* Dissolve 1 packet in 4-8 ounc * NALOXONE 4 MG/ACTUATION NASAL* Use 1 spray in one nostril as * PRAZOSIN 1 MG CAPSULE Take 1 mg by mouth daily at b* SUCRALFATE 1 GRAM TABLET Take 1 tablet [...] once d* Problem List As Of Date 06/28/2020 Noted Resolved Routine gynecological examination [Z01.419] 05/17/2008 [...] ordered this encounter Disp Refills Start End HYDROMORPHONE 2 MG TABLET 40 t* 0 06/28/2020 07/05/2020 Route: ORAL Sig: Take 1 tablet by mouth every 4 hour s as needed for Pain for up to 7 days. Encounter Status:Closed by MALA ALMENDAREZ MD on 06/28/20 obsolete on 2020-06 OBSOLETE Refill (GSTNOR) Normal 06-26-2020 Isaías veland [facility] SALLY VARGAS ([id number]) [address] [facility] Time Provider Department (99943) 06/26/20 JOHNNY WINN GSTNOR During your visit today, we recorded the following informati on about you: Narcisa Baron LPN 06/26/2020 12:54 PM Signed Pharmacy phones requesting refills as follows: Pending Prescriptions Disp Refills HYOSCYAMINE SULFATE 0.125 MG TABLET 60 tablet 1 Sig: Take 1 tablet by mouth every 6 hours as needed. LIGIA: No Please review and advise. Narcisa Baron LPN Allergies As of Date: 06/26/2020 Noted Allergy Reaction PENICILLINS 12/07/2009 2 - [...] mean Date Reviewed: 06/19/2020 Reviewed by: Silvia (Lucius) LUCIUS Gomez - Fully Assessed Reason for Visit: Refill Request [94] Order(s):hyoscyamine (LEVSIN) 0.125 mg tabletTake 1 tablet by mouth every 6 hours as needed.Disp: 60 tabletRfl: 1 Prescriptions as of 06/26/2020 Sig: HYOSCYAMINE SULFATE 0.125 MG * Take 1 tablet by mouth every * PREGABALIN 300 MG CAPSULE Take 1 capsule [...] 1 mg by mouth daily at b* SUCRALFATE 1 GRAM TABLET Take 1 tablet [...] once d* Problem List As Of Date 06/26/2020 Noted Resolved Routine gynecological examination [Z01.419] 05/17/2008 [...] ordered this encounter Disp Refills Start End HYOSCYAMINE SULFATE 0.125 MG TABLET 60 t* 1 06/26/2020 Route: ORAL Sig: Take 1 tablet by mouth every 6 hours as needed. Medications Discontinued During This Encounter Prescriptions - hyoscyamine (LEVSIN) 0.125 mg tablet (Discontinued) Take 1 tablet by mouth every 6 hours as needed. Encounter Status:Closed by JOHNNY WINN MD on 06/26/20 obsolete on 2020-06 OBSOLETE Refill (AKPRAD) Normal 06-25-2020 Ak[facility] on General SALLY VARGAS ([id number]) 1980 F Medical Date Time Provider Department Center 06/25/20 MALA ALMENDAREZ ([id number]) During your visit today, we recorded the [...] Date Reviewed: 06/19/2020 Reviewed by: Silvia (Rn) LUCIUS Gomez - Fully Assessed Reason for Visit: [...] 06/25/20 progress on 2020-06 PROGRESS HNO ID: [id number] Normal 06-21-2020 [facility]ont Author: Maria Luisa Joyner [facility] Service: Pain Management ([id number]) Author Type: Physician Type: Progress Notes Filed: 06/21/2020 9:48 AM Note Text: Name: SALLY VARGAS Age: [age] year old PAIN MANAGEMENT: Abdominal [...] 300 mg ORAL q 12 H Mo yovannyy Anya Scantling 300 mg at 06/21/20 0811 - sucralfate 1 g tab(s) (CARAFATE) 1 g ORAL QID Nancy (Estela javier) Mis 1 g at 06/21/20810 - QUEtiapine 100 mg tab(s) (SEROquel) 100 mg ORAL DAILY Hardy schaeffer (Kiran) Mis 100 mg at 06/20/20 2020 - sertraline 100 mg tab(s) (ZOLOFT) 100 mg ORAL DAILY Robel Abebe 100 mg at 06/21/20810 - pantoprazole DR 40 mg tab(s) (PROTONIX) 40 mg ORAL BEFORE BREAKFAST DAILY Nancy Abebe 40 mg at 06/21/20 0642 - enoxaparin 40 mg injection (LOVENOX) 40 mg SUBCUTANEOUS DA FEDERICO Cruz (Kiran) Mis - sodium chloride 0.9 % (flush) 3-5 mL (BD POSIFLUSH) 3-5 mL INTRAVENOUS q 12 H Nancy (Kiran) Mis 3 mL at 06/21/20 0811 - ondansetron 4 mg tab(s) (ZOFRAN) 4 mg ORAL q 6 H PRN Nova llshiva (Kiran) Mis Or - ondansetron (PF) 4 mg injection (ZOFRAN) 4 mg INTRAVENOUS q 6 H PRN Nancy (Res) Mis - docusate sodium 100 mg cap(s) (COLACE) 100 mg ORAL BID PRN Nancy (Kiran) Mis - melatonin 3 mg tab(s) 3 mg ORAL DAILY (8 PM) Nancy (Kiran ) Mis 3 mg at 06/20/20 2019 - dextrose 5% in LR infusion (D5-LR) 100 mL/hr INTRAVENOUS C ONTINUOUS Nancy (Dena Abebe Stopped at 06/20/20 1900 - [] [...] Approx. 3 cigarettes daily-1 pack every w [place] and [place] Substance Use Topics - Alcohol use: Yes [...] Dilaudid 2 mg #40. She also received / Percocet No. 12 from ED. States she has about half of t he Dilaudid 2 mg tabs left Patient with history of chronic multifactorial pain particul marquis multilevel degenerative disc disease and migraine headache. She was referred to [place] pain management but was unable to go [...] pain. Small quantity oxycodone prescription sent to [facility] Maria Luisa Trejo MD plan of care on PLAN OF CARE HNO ID: [id number] Normal 06-21-20 [facility] Author: Bekah Holman (Pharmacist) [facility] ([id number]) Service: Pharmacy Author Type: Pharmacist Type: Plan of Care Filed: 06/21/2020 11:55 AM Note Text: DISCHARGE MEDICATION REVIEW BY PHARMACY Patient Name: Sally Vargas Account #: Data Unavailable Admission Date: 06/19/2020 Date of Contact: June 21, 2020 Time of Contact: 11:55 AM Medication list was reviewed by a Pharmacist for drug intera ctions or drug related problems:Yes Below is a summary of pharmacist recommendations discussed w ith LIP: No Recommendations at this time from Discharge Medication Li st BEKAH HOLMAN, PHARMACIST June 21, 2020 11:55 AM Pager: [phone] 06/21/2020 11:55 AM Medication List START taking [...] Your Medications These medications were sent to [facility] [address] [place] [address] Hours: Thursday-Thursday, 8am-6:30pm ? clindamycin 300 mg capsule ? docusate sodium 100 mg capsule ? naloxone 4 mg/actuation nasal spray ? oxyCODONE IR 5 mg immediate release tablet ? polyethylene glycol 3350 17 gram/dose powder nursing prog on NURSING HNO ID: [id number] Normal 06-21-2020 [facility] Author: Silvia (Lucius) LUCIUS Gomez General Service: ? Medical Author Type: Registered Nurse Center Type: Nursing Progress Note ([id number]) Filed: 06/20/2020 11:32 PM Note Text: Nursing Progress Note Patient Name: Sally Vargas Patient Location: [id number] Pt has been eating better and was told by the doctor that wh en her intake improved the fluids could be discontinued. Pt does not want fluids to continue so RN stopped fluids on pt's request. Doctor note i ndicated what the pt said. This note was completed by: Silvia Gomez RN progress on 2020-06 PROGRESS HNO ID: [id number] Normal 06-20-2020 [facility] Author: Jonh Urrutia DO General Service: General Surgery Medical Author Type: Resident Center Type: Progress Notes ([id number]) Filed: 06/20/2020 8:38 AM Note Text: Attestation signed by Mala Almendarez at 06/20/2020 2:18 PM I saw and evaluated the patient. Discussed with the reside nt and agree with resident's findings and plan as documented in the resident's note. [facility] Progress Note SERVICE DATE: 06/20/2020 [facility] Service Pager: For questions or concerns Mon-Fri 6a-5p please page [phone]. After 5pm and on Weekends and Holidays, please page [phone]. SUBJECTIVE: Doing better this morning. Says pain [...] in ICU or 2176 if on RNF. plan of care on PLAN OF CARE HNO ID: [id number] Normal 06-20-20 [facility]: [facility] ([id number][facility] Service: General Surgery Author Type: Resident Type: [...] remember having hallucinations this evening; however, the al llucinations that were described by nursing report are similar to the rajendra lucinations the pt reports having had in the past. Appears sleepy. CTAB, RRR. Abd exam less tender than initial exam this evening. Will continue to monitor. Nancy Abebe DO General Surgery Resident, PGY-1 June 20, 2020 2:44 AM history physical on 2020-06-20 HISTORY HNO ID: [id number] Normal 06-20-2020 [facility] Author: Nancy Abebe General Service: General Surgery Medical Author Type: Resident Center Type: [facility] ([id number]) Filed: 06/19/2020 11:38 PM Note Text: Attestation signed by Mala Almendarez at 06/20/2020 2:18 PM Attending Note I personally saw and examined the patient. I reviewed the resident's note. I agree with the resident's assessment and plan with the [facility] revisions and/or additions: CT scan reviewed. Will [...] get worse. She was se nt to [place] ED, where she was given IV Dilauded and transferred here to [facility]. Pt reports that she is urinating, passing flatus and BMs. No N/ V. No fevers or chills. Last PO was at 1300h. Pt has a h/o multiple abd surgeries. Reformed smoker x5 anai hs. FUNCTIONAL STATUS: Independent PAST MEDICAL HISTORY Diagnosis Date - Allergic rhinitis, cause unspecified 05/17/2008spring and summer - Benign liver cyst 05/24/2010 CT scan at [facility] 11/2009 and 04/2010 showe 4 mm increase in size . No pain. No elevated LFTs on 03/11/2010. - Calculus of kidney 05/17/[address] Nicolas: Hospitalized age 20, and again later -- no procedures so far ([facility], [facility], 1995 [facility]) - Cancer (HCC) - Diverticulosis - [...] removed - TOTAL ABDOM HYSTERECTOMY 08/31/06 Hysterectomy, [facility] FAMILY HISTORY Problem Relation Age of Onset [...] Approx. 3 cigarettes daily-1 pack every w [place] and [place] tribes Substance Use Topics - Alcohol use: Yes Comment: Occasional - Drug use: Never - clindamycin (CLEOCIN) 300 mg capsule, Take 1 capsule by mo uth four times daily for 5 days., Disp: [...] oz (86.0kg) SpO2 100% LMP 08/10/2006 [place] 35.84 kg/(m2). O2 Therapy: Room Air DATA: [...] questions or concerns Mon-Fri 6a-5p please page [phone]. After 5pm and on Weekends and Holidays, please page [phone] if in ICU or [phone]NF[address] abd/pel w ivcon on 2020-06-20 CT ABD/PEL W Final Report Normal 06-20-2020 Akr on General IVCON DATE OF EXAM: Jun 20 2020 11:59AM [facility] 0530 - CT ABD/PEL W IVCON / ([id number]) PROCEDURE REASON: Abd pain, unspecified Physician Interpretation [...] ed portions of the heart are unremarkable. Pension Administrator (topogram) images: No additional findings. IMPRESSION: 1. Postsurgical changes in the posterior right hepatic dome with residual 8.3 cm cystic cavity with trace likely postsurgical gas, but no peripheral enhancement to suggest acute inflammation. 2. Other hepatic cyst are unchanged. 3. No acute intra-abdominal or pelvic findings. Superintendent Police: PSCB Transcribe Date/Time: Jun 20 2020 12:16P Dictated by : NILAM OVIEDO MD This examination was interpreted and the report reviewed and electronically signed by: NILAM OVIEDO MD on Jun 20 2020 12:28PM EST consult on CONSULT HNO ID: [id number] Normal 06-20-2020 [facility] Author: Maria Luisa Joyner [facility] Service: Pain Management ([id number]) Author Type: Physician Type: Consults Filed: 06/20/2020 9:30 AM Note Text: Name: SALLY VARGAS Age: [age] year old PAIN MANAGEMENT: Abdominal [...] #40 (was instructed by Surgery to d iscaro of the Oxycodone Rx). She had increased [...] Nancy (Re s) Mis 1 g at 06/19/202105 - QUEtiapine 100 mg tab(s) (SEROquel) 100 mg ORAL DAILY Hardy Abebe 100 mg at 06/19/200 - sertraline 100 mg tab(s) (ZOLOFT) 100 mg ORAL DAILY Robel Abebe - pantoprazole DR 40 mg tab(s) (PROTONIX) [...] mg ORAL q 6 H PRN Nova Abebe Or - ondansetron (PF) 4 mg injection (ZOFRAN) 4 mg INTRAVENOUS q 6 H PRN Nancy Jolley) Mis - docusate sodium 100 mg cap(s) (COLACE) 100 mg ORAL BID PRN Nancy Jolley) Mis - HYDROmorphone HCl 1 mg injection (DILAUDID) 1 mg INTRAVENO US q 4 H PRN Maria Luisa Joyner [place] 1 mg at 06/20/20 0525 - melatonin 3 mg tab(s) 3 mg ORAL DAILY (8 PM) Nancy Abebe (Res ) 3 mg at 06/19/202105 - dextrose 5% in LR infusion (D5-LR) 100 mL/hr INTRAVENOUS C ONTINUOUS Nancy Abebe 100 mL/hr at 06/20/20 0642 100 mL/hr a t 06/20/20 0642 - gabapentin 300 mg cap(s) (NEURONTIN) 300 mg ORAL q 8 H Ki netole Kiran Abebe 300 mg at 06/20/20 0526 - hydrocortisone sodium succinate (PF) 200 mg injection (Leslie u-CORTEF) 200 mg INTRAVENOUS q 6 H Nancy Abebe 200 mg at 0 0526 - clindamycin (CLEOCIN) 300 mg capsule, Take 1 capsule by [facility] four times daily for 5 days., Disp: [...] Approx. 3 cigarettes daily-1 pack every w [place] Substance Use Topics - Alcohol use: Yes [...] FINDINGS: NONE RADIOLOGY/DIAGNOSTICS: LABORATORY: CBC: Recent Labs 06/19/20 2105 WBC 11.80* RBC 4.23 HB 12.1 HCT 37.8 PLT 324 MCV 89.4 MCH 28.6 MPV 10.4 CMP: Recent Labs 06/19/20 2105 NA 137 K [...] and migraine headache. She was referred to [place] pain management but was unable to go to appointments due to transportation issues. Because of multiple missed mini ointments, and she was told that she was not able to reschedule Discontinue Toradol; patient with history of GERD on PPI Change gabapentin 300 mg twice daily; patient states this al d been prescribed for her back. Last [...] health on 03-07-07 [facility] HNO ID: [id number] Normal 020 [facility] Author: Holly (Rt) Audi [facility] Service: Radiology ( [id number]) Author Type: [employer] Paralegal Type: Allied Health Filed: 06/20/2020 12:04 PM [...] unstable renal function, e.g. those with ac [place] kidney injury, the eGFR may not accurately reflect actual GFR. eGFR- Date Value Ref Range Status 06/19/2020 >60 Final 02/15/2020 >60 Final P.O.C.T. RESULTS: N/A June 20, 2020 TREATMENT: N/A and No Hydration needed. PERIPHERAL IV DATA: Inpatient - refer to [facility] documentation RADIOLOGY DEPARTMENT: CT; Exam(s) Completed: Abdomen/Pelvis SIGNATURE: Holly Huntley, RT PATIENT NAME: Sally caldwell DATE: June 20, 2020 TIME: 11:59 AM comp metab 1999 pnl serpl on 2020-06-19 Albumin [Mass/Vol] 4.3 3.9-4.9 g/dL Normal 06-19-2020 [facility] (73563) Comment: Order Comment: Specimen Type : BLOOD SPECIMEN Performed By: #### 40738-4 # ###[facility] LABORATORYCLIA [id number] [facility] [address] ALP [Catalytic activity/Vol] 110 34-123 U/L Normal 1 [facility] (00 000) Comment: Order Comment: Specimen Type : BLOOD SPECIMEN Performed By: #### 04688-2 # ###[facility]ORYCLIA [id number] [facility] [place] [address] ALT With P-5'-P [Catalytic 16 7-38 U/L Normal [facility] activity/Vol] [place] (37346) Comment: Order Comment: Specimen Type : BLOOD SPECIMEN Performed By: #### 88862-3 # ###[facility] LABORATORYCLIA [id number] [facility] [place] [address] Anion gap [Moles/Vol] 13 9-18 mmol/L Normal 06-19-[address] [facility] (10818) Comment: Order Comment: Specimen Type : BLOOD SPECIMEN Performed By: #### 78528-8 # ###[facility]ATORYCLIA [id number] [facility] [place] [address] AST With P-5'-P [Catalytic 19 13-35 U/L Normal [facility] Medical activity/Vol] [place] (35887) Comment: Order Comment: Specimen Type : BLOOD SPECIMEN Performed By: #### 87025-1 # ###[facility]ORATORYCLIA [id number] [facility] [address] Bilirubin [Mass/Vol] 0.2 0.2-1.3 mg/dL Normal 0 [facility] (64357) Comment: Order Comment: Specimen Type : BLOOD SPECIMEN Performed By: #### 74727-5 # ###[facility] LABORATORYCLIA [id number] [facility] [place] [address] Calcium [Mass/Vol] 9.1 8.5-10.2 mg/dL Normal 06-19-2020 [facility] (86225) Comment: Order Comment: Specimen Type : BLOOD SPECIMEN Performed By: #### 09134-9 # ###[facility] LABORATORYCLIA [id number] [facility] [place] [address] Chloride [Moles/Vol] 102 97-105 mmol/L Normal 0 [facility] (47155) Comment: Order Comment: Specimen Type : BLOOD SPECIMEN Performed By: #### 16082-9 # ###[facility] LABORATORYCLIA [id number] [facility] [place] [address] CO2 [Moles/Vol] 22 22-30 mmol/L Normal 06-19-2020 [facility] (56565) Comment: Order Comment: Specimen Type : BLOOD SPECIMEN Performed By: #### 74171-2 # ###[facility] LABORATORYCLIA [id number] [facility] [place] [address] Creatinine [Mass/Vol] 0.88 0.58-0.96 mg/dL Normal 06-19-[address] [facility] (00 000) Comment: Order Comment: Specimen Type : BLOOD SPECIMEN Performed By: #### 12049-9 # ###[facility] LABORATORYCLIA [id number] [facility] [place] [address] GFR/1.73 sq M.predicted >60 mL/min/{1.73_m2} Normal 06-19-2020 [facility] MDRD (S/P/Bld) [[facility] rate/Area] (34661) Comment: Order Comment: Specimen Type : BLOOD SPECIMEN Result Comment: >60 eGFR (Estimated GFR) Units o f measure: mL/min/1.73 meters squared eGFR is derived from the ree xpressed MDRD Study equation using the following parameters: serum creatinine, age, gender and race. The creatinine assay has been calibrated to be traceable to IDMS. An eGFR <60 mL/min/1.73m2 for >3 mo nths is consistent with chronic kidney disease. Refer to KDOQI guidelines for clinical interpretation. In patients with unstable renal function, e.g. those with acute k idney injury, the eGFR may n ot accurately reflect actual GFR. Performed By: #### 33829-6 # ###[facility] LABORATORYCLIA [id number] [facility] [place] [place] [address] Glucose [Mass/Vol] 100 74-99 mg/dL High 06-19-2020 [facility] (57065) Comment: Order Comment: Specimen Type : BLOOD SPECIMEN Result Comment: The [place] Diabetes Association (ADA) provides guidance for cutoff [...] for diagnosis of diabetes. Reference: Standards of [facility] Care in Diabetes 2016, [place] Diabetes Association. Diabetes Care. 2016.39(Suppl 1). Performed By: #### 98369-7 # ###[facility] LABORATORYCLIA [id number] [facility] [place] [address] Potassium [Moles/Vol] 3.8 3.7-5.1 mmol/L Normal 06-19-20 [facility] (00 000) Comment: Order Comment: Specimen Type : BLOOD SPECIMEN Performed By: #### 17264-5 # ###[facility] LABORATORYCLIA [id number] [facility] [place] [address] Protein [Mass/Vol] 7.7 6.3-8.0 g/dL Normal 06-19-2020 [facility] (51790) Comment: Order Comment: Specimen Type : BLOOD SPECIMEN Performed By: #### 10389-4 # ###[facility] LABORATORYCLIA [id number] [facility] [place] [place] [address] Sodium [Moles/Vol] 137 136-144 mmol/L Normal 06-19-2020 [facility] (16004) Comment: Order Comment: Specimen Type : BLOOD SPECIMEN Performed By: #### 84435-5 # ###[facility] LABORATORYCLIA [id number] [facility] [place] [address] Urea nitrogen [Mass/Vol] 14 7-21 mg/dL Normal 06-19 [facility] (36875) Comment: Order Comment: Specimen Type : BLOOD SPECIMEN Performed By: #### 47960-3 # ###[facility] LABORATORYCLIA [id number] [facility] [place] [address] cbc w auto diff bld on 2020-06-19 Basophils (Bld) [#/Vol] 0.08 <0.11 k/uL Normal 2019 [facility] (00 000) Comment: Order Comment: Specimen Type : BLOOD SPECIMEN Performed By: #### 81443-9 # ###[facility] LABORATORYCLIA [id number] [facility] [place] [address] Basophils/100 WBC (Bld) 0.7 % Normal 2019 [facility] (26125) Comment: Order Comment: Specimen Type : BLOOD SPECIMEN Performed By: #### 52776-7 # ###[facility] LABORATORYCLIA [id number] [facility] [place] [address] Differential cell count method Auto Normal 06-19-2020 [facility] (Bld) Center (00 000) Comment: Order Comment: Specimen Type : BLOOD SPECIMEN Performed By: #### 59492-9 # ###[facility] LABORATORYCLIA [id number] [facility] [place] [address] Eosinophils (Bld) [#/Vol] 0.71 <0.46 k/uL High 10 [facility] (00 000) Comment: Order Comment: Specimen Type : BLOOD SPECIMEN Performed By: #### 39977-2 # ###[facility]ORATORYCLIA [id number] [facility] [place] [place] [address] Eosinophils/100 WBC (Bld) 6.0 % Normal [facility] (08666) Comment: Order Comment: Specimen Type : BLOOD SPECIMEN Performed By: #### 67379-2 # ###[facility] LABORATORYCLIA [id number] [facility] [place] [address] Erythrocyte distribution 13.3 11.5-15.0 % Normal 06-19 [facility] width (RBC) [Ratio] Center (50479) Comment: Order Comment: Specimen Type : BLOOD SPECIMEN Performed By: #### 30097-9 # ###[facility] LABORATORYCLIA [id number] [facility] [place] [address] Hematocrit (Bld) [Volume 37.8 36.0-46.0 % Normal 06-19 [facility] fraction] Center (00 000) Comment: Order Comment: Specimen Type : BLOOD SPECIMEN Performed By: #### 74827-2 # ###[facility] LABORATORYCLIA [id number] [facility] [place] [address] Hemoglobin (Bld) 12.1 11.5-15.5 g/dL Normal 06-19-2020 [facility] [Mass/Vol] [place] (0 0000) Comment: Order Comment: Specimen Type : BLOOD SPECIMEN Performed By: #### 98169-4 # ###[facility] LABORATORYCLIA [id number] [facility] [place] [address] IMMATURE GRAN % 1.5 % Normal 06-19-2020 [facility] (77894) Comment: Order Comment: Specimen Type : BLOOD SPECIMEN Performed By: #### 33310-7 # ###[facility] LABORATORYCLIA [id number] [facility] [place] [address] IMMATURE GRAN ABS 0.18 <0.10 k/uL High 06-19-2020 [facility] (49682) Comment: Order Comment: Specimen Type : BLOOD SPECIMEN Result Comment: Differential confirmed by visual scan of peripheral blood smear slide Performed By: #### 08256-7 # ###[facility]ORATORYCLIA [id number] [facility] [address] Lymphocytes (Bld) [#/Vol] 4.79 1.00-4.00 k/uL High [facility] () Comment: Order Comment: Specimen Type : BLOOD SPECIMEN Performed By: #### 04583-5 # ###[facility] LABORATORYCLIA [id number] [facility] [address] Lymphocytes/100 WBC (Bld) 40.6 % Normal [facility] (74649) Comment: Order Comment: Specimen Type : BLOOD SPECIMEN Performed By: #### 11318-0 # ###[facility] LABORATORYCLIA [id number] [facility] [address] MCH (RBC) [Entitic mass] 28.6 26.0-34.0 pg Normal 06-19 [facility] () Comment: Order Comment: Specimen Type : BLOOD SPECIMEN Performed By: #### 40048-8 # ###[facility] LABORATORYCLIA [id number] [facility] [address] MCHC (RBC) [Mass/Vol] 32.0 30.5-36.0 g/dL Normal 06-19-20 [facility] () Comment: Order Comment: Specimen Type : BLOOD SPECIMEN Performed By: #### 87412-3 # ###[facility] LABORATORYCLIA [id number] [facility] [address] MCV (RBC) [Entitic vol] 89.4 80.0-100.0 fL Normal 06-19 [facility] ( 000) Comment: Order Comment: Specimen Type : BLOOD SPECIMEN Performed By: #### 71707-8 # ###[facility] LABORATORYCLIA [id number] [facility] [address] Monocytes (Bld) [#/Vol] 0.53 <0.87 k/uL Normal 2019 [facility] ( 000) Comment: Order Comment: Specimen Type : BLOOD SPECIMEN Performed By: #### 78100-5 # ###[facility] LABORATORYCLIA [id number] [facility] [place] [address] Monocytes/100 WBC (Bld) 4.5 % Normal 2019 [facility] (39235) Comment: Order Comment: Specimen Type : BLOOD SPECIMEN Performed By: #### 71504-5 # ###[facility] LABORATORYCLIA [id number] [facility] [place] [address] Neutrophils (Bld) [#/Vol] 5.51 1.45-7.50 k/uL Normal [facility] (00 000) Comment: Order Comment: Specimen Type : BLOOD SPECIMEN Performed By: #### 15871-1 # ###[facility] LABORATORYCLIA [id number] [facility] [place] [address] Neutrophils/100 WBC (Bld) 46.7 % Normal [facility] (22917) Comment: Order Comment: Specimen Type : BLOOD SPECIMEN Performed By: #### 89695-3 # ###[facility] LABORATORYCLIA [id number] [facility] [place] [address] Nucleated RBC (Bld) <0.01 <0.01 10*3/uL Normal 06-19-2020 [facility] [#/Vol] [place] (00 000) Comment: Order Comment: Specimen Type : BLOOD SPECIMEN Performed By: #### 95735-8 # ###[facility] LABORATORYCLIA [id number] [facility] [place] [address] Nucleated RBC/100 WBC 0.0 0.0 /100 WBC Normal 06-19-20 20 [facility] (Bld) [Ratio] Center (28573) Comment: Order Comment: Specimen Type : BLOOD SPECIMEN Performed By: #### 72124-6 # ###[facility] LABORATORYCLIA [id number] [facility] [place] [place] [address] Platelet mean volume (Bld) 10.4 9.0-12.7 fL Normal [facility] [Entitic vol] Center (20069) Comment: Order Comment: Specimen Type : BLOOD SPECIMEN Performed By: #### 66693-3 # ###[facility] LABORATORYCLIA [id number] [facility] [place] [address] Platelets (Bld) [#/Vol] 324 150-400 k/uL Normal 2019 [facility] (00 000) Comment: Order Comment: Specimen Type : BLOOD SPECIMEN Performed By: #### 59241-7 # ###[facility] LABORATORYCLIA [id number] [facility] [place] [address] RBC (Bld) [#/Vol] 4.23 3.90-5.20 m/uL Normal 06-19-2020 [facility] (31170) Comment: Order Comment: Specimen Type : BLOOD SPECIMEN Performed By: #### 53479-0 # ###[facility] LABORATORYCLIA [id number] [facility] [address] RED CELL MORPH Normal Normal 06-19-2020 [facility] (57348) Comment: Order Comment: Specimen Type : BLOOD SPECIMEN Performed By: #### 31595-8 # ###[facility] LABORATORYCLIA [id number] [facility] [address] WBC (Bld) [#/Vol] 11.80 3.70-11.00 k/uL High 06-19-2020 [facility] (66208) Comment: Order Comment: Specimen Type : BLOOD SPECIMEN Performed By: #### 39263-5 # ###[facility] LABORATORYCLIA [id number] [facility] [place] [address] cnpn on 2020-06-15 CNPN Telephone (AGGENS6) Normal 06-15-2020 [place] SALLY Dawson ([id number]) 1980 F Medical Date Time Provider Department Center 06/15/20 TATY PEREA (BUILDING GUARD DEPUTY SHERIFF, NURSE SANE) AGGENS6 (70659) During your visit today, we recorded the following informati on about you: Taty Perea APRN.NURSE SANE 06/15/2020 11:28 AM Signed Patient called the office wi th concerns for infection at her incision site. She states it is red, painful, swollen, and warm. Sh shiva is having a small amount of drainage that she describes as pus-like. She denies fevers or chills. She was offered an appointment to be seen today, however she lives 1 hour away and does not have transportation. She refuses to go to [facility] ER to be seen because they treat her poorly. I will send an RX to her pharmacy for an antibiotic. She is to notify the office if her symptoms worsen or do not improve. Taty Perea APRN, NURSE SANE Allergies As of Date: 06/15/2020 Noted Allergy [...] 06/15/20 progress on 2020-05 PROGRESS HNO ID: [id number] Normal 06-13-2020 [place] Author: Kimmie Jennings General Service: General Surgery Medical Author Type: Resident Center Type: Progress Notes ([id number]) Filed: 06/13/2020 6:55 AM Note Text: Attestation signed by Mala Almendarez at 06/18/2020 1:28 PM I saw and evaluated the patient. Discussed with the reside nt and agree with resident's findings and plan as documented in the resident's note. [facility] General Surgery Progress Note SERVICE DATE: 06/13/2020 [facility] Surgery Service Pager: For questions or concerns Mon-Fri 6a-5p please page [phone]. After 5pm and on Weekends and Holidays, please page [phone]. SUBJECTIVE: Patient stayed overnight due to uncontrolled [...] O2 Therapy: Room Air IANDO: Date 06/12/20 0700 - 06/13/20 0659 06/13/20 0700 - 06/14/20 0659 Shift [id number] [id number] [id number] 24 Hour Total 2946-5809 4263-1710 0878-6702 24 Hour Total INTAKE [address] 200 [...] hepatic cysts on MRI. ? Hospital Course: 9/25: MRI Panc/James: multiple simple hepatic cysts, MRCP: [...] SIGNATURE: Kimmie Jennings DO PATIENT NAME: Sally Vargas DATE: June 13, 2020 TIME: 6:54 AM Pager: see below [facility] General Surgery Service Pager: For questions or concerns Mon-Thu 6a-5p please page [phone]. After 5pm and on Weekends and Holidays, please page [phone] if in ICU or [phone] if on RNF. PROGRESS HNO ID: [id number] Normal 06-13-2020 [place] Author: Mer (Rn) LUCIUS Bejarano General Service: Nursing Med ical Author Type: Registered Nurse Center Type: Progress Notes ([id number]) Filed: 06/13/2020 12:39 AM Note Text: Patient IV got infiltrated. Patient requested IV only on her rt AC with one try. Refused other spots with better veins. Failed first attempt and patient does not want to have another IV. Surgery resident notified. plan of care on PLAN HNO ID: [id number] Normal 06-13-2020 [place] [facility] Author: Aureliano Dietz DO General CARE Service: General Surgery Medical Author Type: Resident Center Type: Plan of Care ( [id number]) Filed: 06/13/2020 4:57 PM Note Text: Attestation [...] mg/dL Normal 0 [facility] (25334) Comment: Performed By: #### URIN2 ### # [address] [address] mdrd gfr on 2020-05 GFR/1.73 sq M >60 >60mL/min/1.73m2 mL/min/{1.73_m2} Normal [facility] predicted among [facility] non-blacks MDRD (000 00) (S/P/Bld) [Vol rate/Area] Comment: Result Comment: If the patie nt is , multiply the result by 1.210. Performed By: #### GFR #### [facility] [address] [place], [place] [address] magnesium blood on 2020-06-13 Magnesium [Mass/Vol] 2.1 1.7-2.3 mg/dL Normal 0 [facility] (56892) Comment: Performed By: #### URIN2 ### # [facility] [address] [place], [place] [address] hemogram on 2020-05 Erythrocyte distribution 13.4 11.7-14.4 % Normal 06-13 [facility] width (RBC) [Ratio] System (85541) Comment: Performed By: #### URIN2 ### # [facility] [address] [place] [address] Hematocrit (Bld) [Volume 37.9 34.1-44.9 % Normal 06-13 [facility] fraction] System (00 000) Comment: Performed By: #### URIN2 ### # [facility] [address] [place] [address] Hemoglobin (Bld) 12.1 11.2-15.7 g/dL Normal 06-13-2020 [facility] [employer] [facility] [Mass/Vol] System (0 0000) Comment: Performed By: #### URIN2 ### # [facility] [address] [place] [address] MCH (RBC) [Entitic mass] 28.9 25.6-32.2 pg Normal 06-13 [facility] (00 000) Comment: Performed By: #### URIN2 ### # [facility] [address] [place] [address] MCHC (RBC) [Mass/Vol] 31.9 31.6-34.8 % Normal 06-13-20 20 [facility] [employer] [facility] (60549) Comment: Performed By: #### URIN2 ### # [facility] [address] [place] [address] MCV (RBC) [Entitic vol] 90.7 79.4-94.8 fl Normal 2019 [facility] (00 000) Comment: Performed By: #### URIN2 ### # [facility] [address] [place] [address] Platelet mean volume (Bld) 10.9 9.4-12.3 fl Normal [place] [employer] [Entitic vol] System (97613) Comment: Performed By: #### URIN2 ### # [facility] [address] [place], [place] [address] Platelets (Bld) [#/Vol] 236 182-369 thou/cmm Normal 2019 [facility] (00 000) Comment: Performed By: #### URIN2 ### # [facility] [address] [place], [place] [address] RBC (Bld) [#/Vol] 4.18 3.93-5.22 mil/cmm Normal 06-13-2020 [facility] (00 000) Comment: Performed By: #### URIN2 ### # [facility] [address] [place] [address] RDW SD 44.2 36.4-46.3 fl Normal 06-13-2020 [facility] (57595) Comment: Performed By: #### URIN2 ### # [facility] [address] [place] [address] WBC (Bld) [#/Vol] 7.45 3.98-10.04 thou/cmm Normal 06-13-2020 [facility] (00 000) Comment: Performed By: #### URIN2 ### # [facility] [address] [place] [address] comprehensive metabolic panel on 2020-06-13 Albumin [Mass/Vol] 4.1 3.9-4.9 g/dL Normal 06-13-2020 [facility] (56372) Comment: Performed By: #### URIN2 ### # [facility] [address] [place] [address] ALP [Catalytic activity/Vol] 98 34-123 U/L Normal 0 06-13-2020 [facility] (00 000) Comment: Performed By: #### URIN2 ### # [facility] [address] [place] [address] ALT [Catalytic activity/Vol] 73 7-38 U/L High 0 06-13-2020 [facility] (02125) Comment: Performed By: #### URIN2 ### # [facility] [address] [place] [address] Anion gap [Moles/Vol] 10 9-18 mmol/L Normal 06-13-20 20 [facility] (14511) Comment: Performed By: #### URIN2 ### # [facility] [address] [place], [place] [address] AST [Catalytic activity/Vol] 69 13-35 U/L High 0 06-13-2020 [facility] (48457) Comment: Performed By: #### URIN2 ### # [facility] [address] [place], [place] [address] Bilirubin [Mass/Vol] 0.6 0.2-1.3 mg/dL Normal 0 [facility] (50190) Comment: Performed By: #### URIN2 ### # [facility] [address] [place], [place] [address] Calcium [Mass/Vol] 9.1 8.5-10.2 mg/dL Normal 06-13-2020 [facility] (11835) Comment: Performed By: #### URIN2 ### # [facility] [address] [place], [place] [address] Chloride [Moles/Vol] 101 97-105 mmol/L Normal 0 [facility] (21521) Comment: Performed By: #### URIN2 ### # [facility] [address] [place], [place] [address] CO2 Blood 27 22-30 mmol/L Normal 06-13-2020 [facility] (33608) Comment: Performed By: #### URIN2 ### # [facility] [address] [place], [place] [address] Creatinine [Mass/Vol] 0.87 0.58-0.96 mg/dL Normal 06-13-20 20 [facility] (00 000) Comment: Performed By: #### URIN2 ### # [facility] [address] [place], [place] [address] Glucose [Mass/Vol] 94 74-99 mg/dL Normal 06-13-2020 [facility] (26871) Comment: Result Comment: The [place] Diabetes Association (ADA) provides guidance for cutoff [...] Standards of Medical Care in Diabetes 2016; [place] Diabetes Association. Diabetes Care. 2016;39(Suppl 1). Performed By: #### URIN2 ### # [facility] [address] [place], [place] [address] Potassium [Moles/Vol] 3.8 3.7-5.1 mmol/L Normal 06-13-20 20 [facility] (00 000) Comment: Performed By: #### URIN2 ### # [address] [address] Protein [Mass/Vol] 7.3 6.3-8.0 g/dL Normal 06-13-2020 [facility] (93926) Comment: Performed By: #### URIN2 ### # [facility] [address] [place], [place] [address] Sodium [Moles/Vol] 138 136-144 mmol/L Normal 06-13-2020 [facility] (05326) Comment: Performed By: #### URIN2 ### # [address] [address] Urea nitrogen [Mass/Vol] 7 7-21 mg/dL Normal 06-13 [facility] (88986) Comment: Performed By: #### URIN2 ### # [address] [address] case managem on CASE MANAGEM HNO ID: [id number] Normal 06-13-20 [facility] Author: Britni (Rn) [facility] Service: Care Management ([id number]) Author Type: Registered Nurse Type: Care Mgt [...] Name/Phone: Floor RN TRANSPORTATION ARRANGEMENTS: Transportation Arrangements: [email or web address] (through [employer]: [phone] Trip #: [id number] Needs Prior to Discharge: Ready for Discharge Chart reviewed. Discharge held yesterday due to uncontrolled pain. Spoke with patient. Plan is for discharge today. Awaiting juve hussein orders. Discharge disposition= Home with follow up care. SIGNATURE: Britni Grimaldo RN PATIENT NAME: Sally james DATE: June 13, 2020 TIME: 11:00 AM PAGER/CONTACT #: [phone] progress on 2020-05 PROGRESS HNO ID: [id number] Canones 06-12-2020 [place] Author: Nancy Abebe General Service: General Surgery Medical Author Type: Resident Center Type: Progress Notes ([id number]) Filed: 06/12/2020 7:57 AM Note Text: Attestation signed by Mala Almendarez at 06/12/2020 9:28 PM Attending Note I personally saw and examined the patient. I reviewed the resident's note. I agree with the resident's assessment and plan with the maureen strong revisions and/or additions: Still with severe pain. Will hold DC today and poss dc chalino hensley Signature: Mala Almendarez MD Date: 06/12/2020 Time: 9:28 PM Elective General Surgery Progress Note SERVICE DATE: 06/12/2020 Elective General Surgery Service Pager: For questions or concerns Mon-Fri 6a-5p please page [phone]. After 5pm and on Weekends and Holidays, please page [phone]. SUBJECTIVE: C/o significant pain that prevents her [...] kg/m? O2 Therapy: Room Air IANDO: Date 06/11/20 07 - 06/12/20 0659 06/12/20 0700 - 06/13/20 0659 Shift 5222-0755 8006-9667 2118-9229 24 Hour Total 7623-5900 1787-5356 0718-7520 24 Hour Total INTAKE PO 100 100 PO 100 100 IV 1900 1900 OR Crystalloid intake (mL) 1000 1000 Volume (mL) (lactated ringers infusion) 900 900 Shift Total 9654 413 6098 OUTPUT Urine 904 763 7767 Void (ml) 600 600 OR Urine Output 500 500 Urine Not Saved. 1 x 3 x 4 x Blood 50 50 Estimated Blood loss 50 50 Shift Total 385 650 5926 Weight (kg) 89.6 89.6 89.6 89.6 89.6 [...] SIGNATURE: Nancy Abebe DO PATIENT NAME: Sally Szymanski ee DATE: June 12, 2020 TIME: 6:11 AM Pager: see below Elective General Surgery Service Pager: For questions or concerns Mon-Thu 6a-5p please page [phone]. After 5pm and on Weekends and Holidays, please page [phone] if in ICU or [phone] if on RNF. plan of care on PLAN OF CARE HNO ID: [id number] Normal 06-12-20 [facility] Author: Page Burgess (Vehicle Calibration Engineer) [place] ([id number]) Service: Pharmacy Author Type: Pharmacist Type: Plan of Care Filed: 06/12/2020 10:36 AM Note Text: DISCHARGE MEDICATION REVIEW BY PHARMACY Patient Name: Sally Vargas Account #: Data Unavailable Admission Date: 06/08/2020 Date of Contact: June 12, 2020 Time of Contact: 10:36 A M Medication list was reviewed by a Pharmacist for drug intera ctions or drug related problems:Yes Below is a summary of pharmacist recommendations discussed w ith LIP: No Recommendations at this time from Discharge Medication Li st. Page Burgess, Vehicle Calibration Engineer June 12, 2020 10:36 AM Medication List [...] Your Medications These medications were sent to [facility] [address] [place] [address] Hours: Thursday-Thursday, 8am-6:30pm ? oxyCODONE IR 5 mg immediate release tablet phosphorous blood o n 2020-06-12 Phosphate [Mass/Vol] 3.4 2.7-4.8 mg/dL Normal 0 [facility] (02375) Comment: Performed By: #### CBCD1 ### # [place] [id number] magnesium blood on 2020-06-12 Magnesium [Mass/Vol] 1.5 1.7-2.3 mg/dL Low 0 [facility] (29862) Comment: Performed By: #### CBCD1 ### # [place] [id number] hemogram on 2020-05 Erythrocyte distribution 13.2 11.7-14.4 % Normal 06-12 [facility] width (RBC) [Ratio] System (89165) Comment: Performed By: #### CBCD1 ### # [place] [id number] Hematocrit (Bld) [Volume 32.9 34.1-44.9 % Low 06-12 [facility]] System (00 000) Comment: Performed By: #### CBCD1 ### # [facility] [address] [place], [place] [address] Hemoglobin (Bld) [Mass/Vol] 10.5 11.2-15.7 g/dL Low [facility] () Comment: Performed By: #### CBCD1 ### # [facility] [address] [place], [place] [address] MCH (RBC) [Entitic mass] 29.2 25.6-32.2 pg Normal 06-12 [facility] () Comment: Performed By: #### CBCD1 ### # [facility] [address] [place], [place] [address] MCHC (RBC) [Mass/Vol] 31.9 31.6-34.8 % Normal 06-12-20 20 [facility] (40998) Comment: Performed By: #### CBCD1 ### # [facility] [address] [place], [place] [address] MCV (RBC) [Entitic vol] 91.4 79.4-94.8 fl Normal 2019 [facility] (00 000) Comment: Performed By: #### CBCD1 ### # [facility] [address] [place], [place] [address] Platelet mean volume (Bld) 11.5 9.4-12.3 fl Normal [facility] [Entitic vol] System (71132) Comment: Performed By: #### CBCD1 ### # [facility] [address] [place], [place] [address] Platelets (Bld) [#/Vol] 182 182-369 thou/cmm Normal 2019 [facility] (00 000) Comment: Performed By: #### CBCD1 ### # [facility] [address] [place], [place] [address] RBC (Bld) [#/Vol] 3.60 3.93-5.22 mil/cmm Low 06-12-2020 [facility] (97867) Comment: Performed By: #### CBCD1 ### # [facility] [address] [place], [place] [address] RDW SD 44.5 36.4-46.3 fl Normal 06-12-2020 [facility] (94160) Comment: Performed By: #### CBCD1 ### # [facility] [address] [place] [id number] WBC (Bld) [#/Vol] 7.04 3.98-10.04 thou/cmm Normal 06-12-2020 [facility] (00 000) Comment: Performed By: #### CBCD1 ### # [facility] [address] [place] [address] case managem on CASE MANAGEM HNO ID: [id number] Normal 06-12-20 [facility] Author: Birtni Naranjo) [facility] Service: Care Management ([id number]) Author Type: Registered Nurse Type: Care Mgt [...] RN PATIENT NAME: Sally Szymanski DATE: June 12, 2020 TIME: 9:18 AM PAGER/CONTACT #: [phone] basic metabolic panel on 2020-06-12 Anion gap [Moles/Vol] 8 9-18 mmol/L Low 06-12-20 20 [facility] (54557) Comment: Performed By: #### CBCD1 ### # [facility] [address] [place], [place] [address] Calcium [Mass/Vol] 8.0 8.5-10.2 mg/dL Low 06-12-2020 [facility] (90835) Comment: Performed By: #### CBCD1 ### # [facility] [address] [place], [place] [address] Chloride [Moles/Vol] 104 97-105 mmol/L Normal 0 [facility] (05525) Comment: Performed By: #### CBCD1 ### # [facility] [address] [place], [place] [address] CO2 Blood 26 22-30 mmol/L Normal 06-12-2020 [facility] (35680) Comment: Performed By: #### CBCD1 ### # [facility] [address] [place], [place] [address] Creatinine [Mass/Vol] 0.87 0.58-0.96 mg/dL Normal 06-12-20 [facility] (00 000) Comment: Performed By: #### CBCD1 ### # [facility] [address] [place], [place] [address] Glucose [Mass/Vol] 83 74-99 mg/dL Normal 06-12-2020 [facility] (50525) Comment: Result Comment: The [place] Diabetes Association (ADA) provides guidance for cutoff [...] Standards of Medical Care in Diabetes 2016; [place] Diabetes Association. Diabetes Care. 2016;39(Suppl 1). Performed By: #### CBCD1 ### # [facility] [address] [place] [address] Potassium [Moles/Vol] 3.4 3.7-5.1 mmol/L Low 06-12-20 20 [facility] (03979) Comment: Performed By: #### CBCD1 ### # [facility] [address] [place] [address] Sodium [Moles/Vol] 138 136-144 mmol/L Normal 06-12-2020 [facility] (57164) Comment: Performed By: #### CBCD1 ### # [place] [address] Urea nitrogen [Mass/Vol] 6 7-21 mg/dL Low 06-12 [facility] (96076) Comment: Performed By: #### CBCD1 ### # [place] [address] type and screen on 2020-06-11 ABO group Nom (Bld) O Normal 06-11-2020 [facility] (62663) Comment: Performed By: #### CBCD1 ### # [place] [address] Comment See Below Normal 06-11-2020 [facility] (31649) Comment: Result Comment: Screen &/or Xmatch expires in 3 days at 12 midnight. Redraw patient at that time. Performed By: #### CBCD1 ### # [place] [address] RH Type Positive Normal 06-11-2020 [facility] (31672) Comment: Performed By: #### CBCD1 ### # [place] [address] surgical tissue exam on 2020-06-11 Surgical Tissue Exam Test performed at [facility] Normal 06-11-[address] [facility] [address] [place] [address] ([id number]) NAME: SALLY VARGAS REQUESTING: MALA ALMENDAREZ MD FINAL DIAGNOSIS: LIVER, [...] are not see n on the specimen. Boot Trimmer sections are submitted in formalin in 4 cassettes. LETICIA/chadd VILLASEÑOR M.D., PATHOLOGIST (Electronic signature on file) Signed out: 06/13/2020 16:48 PRINTED: 06/13/2020 Page 1 of 1 Comment: Performed By: #### URIN2 ### # [place] [address] progress on 2020-05 PROGRESS HNO ID: [id number] Normal 06-11-2020 [place] Author: Kimmie Beck [facility] General Service: General Surgery Medical Author Type: Resident Center Type: Progress Notes ([id number]) Filed: 06/11/2020 7:03 AM Note Text: Attestation [...] questions or concerns Mon-Fri 6a-5p please page [phone]. After 5pm and on Weekends and Holidays, please page [phone]. SUBJECTIVE: NAEON. Afebrile. Patient resting in bed this morning. Pain w ell controlled but again states that only dilaudid is working well for pain . Nausea controlled with medication. Patient is upset that her surger y is scheduled late because her mouth is very dry and bothersome this kameron ng. Tolerating diet DIET NPO Nausea Yes [...] Room Air IANDO: Date 06/10/206[address] - 06/11/20 0659 06/11/20 07 - 06/12/20 0659 Shift 8100-0450 9970-2872 0827-7893 24 Hour Total 2886-7248 3484-8831 5443-9766 24 Hour Total INTAKE PO 600 600 [...] SIGNATURE: Kimmie Jennings DO PATIENT NAME: Sally Varags 8DATE: June 11, 2020 TIME: 7:02 AM Pager: see below Elective General Surgery Service Pager: For questions or concerns Thu-Thu 6a-5p please page [phone]. After 5pm and on Weekends and Holidays, please page [phone] if in ICU or [phone] if on RNF. operative no on OPERATIVE NO HNO ID: [id number] Normal 06-11-20 [facility] Author: Mala Eddy [facility] Service: General Surgery ([id number]) Author Type: Physician Type: Operative Report Filed: 06/11/2020 1:39 PM Note Text: [facility] - Operative Report SALLY VARGAS : 1980 AGE: 39. SEX: F PATIENT TYPE: I HOSP SV: [facility] LOCATION: [facility] ATTENDING PHYSICIAN: MALA ALMENDAREZ CSN NUMBER: [id number] DATE OF SURGERY/PROCEDURE: 06/11/2020 INCISION/PROCEDURE START TIME: 10:51 AM INCISION CLOSE/PROCEDURE END TIME: 11:47 AM PREOPERATIVE DIAGNOSIS: Symptomatic liver cyst. POSTOPERATIVE DIAGNOSIS: Symptomatic liver cyst. SURGEON: Mala Almendarez MD RAILROAD CAR INSPECTOR: None. SURGERY/PROCEDURE: Laparoscopic partial right hepatic lobect [...] CLASS: 2, clean, contaminated. Mala Almendarez MD NSA:[id number] /[id number] nursing prog on NURSING PROG HNO ID: [id number] Normal 06-11-20 20 [facility] Author: Garo Jackson RN [facility] Center Service: ? ([id number]) Author Type: Registered Nurse Type: Nursing Progress Note Filed: 06/11/2020 6:25 PM Note Text: Nursing Progress Note Patient Name: Sally Vargas Patient Location: [place] [id number]- Patient refusing IV fluids, states we can restart them when she goes to bed. Informed surgery team. This note was completed by: Garo Jackson RN hemogram on 2020-05 Erythrocyte distribution 13.0 11.7-14.4 % Normal 06-11 [facility] width (RBC) [Ratio] System (25348) Comment: Performed By: #### CBCD1 ### # [facility] [address] [place], [place] [address] Hematocrit (Bld) [Volume 35.0 34.1-44.9 % Normal 06-11 [facility]] System (00 000) Comment: Performed By: #### CBCD1 ### # [facility] [address] [place], [place] [address] Hemoglobin (Bld) 11.4 11.2-15.7 g/dL Normal 06-11-2020 [facility] [employer] [facility] [Mass/Vol] System (0 0000) Comment: Performed By: #### CBCD1 ### # [facility] [address] [place], [place] [address] MCH (RBC) [Entitic mass] 29.2 25.6-32.2 pg Normal 06-11 [facility] (00 000) Comment: Performed By: #### CBCD1 ### # [facility] [address] [place], [place] [address] MCHC (RBC) [Mass/Vol] 32.6 31.6-34.8 % Normal 06-11-20 20 [facility] (90621) Comment: Performed By: #### CBCD1 ### # [facility] [address] [place], [place] [address] MCV (RBC) [Entitic vol] 89.5 79.4-94.8 fl Normal 2019 [facility] (00 000) Comment: Performed By: #### CBCD1 ### # [facility] [address] [place], [place] [address] Platelet mean volume (Bld) 11.1 9.4-12.3 fl Normal [facility] [Entitic vol] System (10064) Comment: Performed By: #### CBCD1 ### # [facility] [address] [place], [place] [address] Platelets (Bld) [#/Vol] 229 182-369 thou/cmm Normal 2019 [facility] (00 000) Comment: Performed By: #### CBCD1 ### # [facility] [address] [place], [place] [address] RBC (Bld) [#/Vol] 3.91 3.93-5.22 mil/cmm Low 06-11-2020 [facility] (59570) Comment: Performed By: #### CBCD1 ### # [facility] [address] [place] [id number] RDW SD 42.5 36.4-46.3 fl Normal 06-11-2020 [facility] (75664) Comment: Performed By: #### CBCD1 ### # [facility] [address] [place], [place] [address] WBC (Bld) [#/Vol] 6.54 3.98-10.04 thou/cmm Normal 06-11-2020 [facility] (00 000) Comment: Performed By: #### CBCD1 ### # [place] [id number] case managem on 202 CASE MANAGEM HNO ID: [id number] Normal 06-11-20 20 [facility] Author: Britni (Rn) [facility] Service: Care Management ([id number]) Author Type: Registered Nurse Type: Care Mgt [...] 11, 2020 TIME: 9:10 AM PAGER/CONTACT #: [id number] anes preop on 06-11 ANES PREOP HNO ID: [id number] Normal 06-11-2020 Mil[facility] Dumont Author: [facility] Service: Anesthesiology ([id number]) Author Type: Physician Type: Anesthesia PreOp Filed: [...] Benign liver cyst 05/24/2010 CT scan at [facility] 11/2009 and 04/2010 showe 4 mm increase in size . No pain. No elevated LFTs on 03/11/2010. - Calculus of kidney 05/17/[address] Nicloas: Hospitalized age 20, and again later -- no procedures so far ([facility], [facility], 1995 [facility]) - Cancer (HCC) - Diverticulosis - [...] removed - TOTAL ABDOM HYSTERECTOMY 08/31/06 Hysterectomy, [facility] FAMILY HISTORY Problem Relation Age of Onset [...] Approx. 3 cigarettes daily-1 pack every w [place] and [place] [employer] Substance Use Topics - Alcohol use: Yes [...] INTRAVENOUS q 3 H PRN Nigel (Res) Pondera 1 mg at 06/11/20 0536 - [MAR Hold due to Transfer] NaCl 0.9% iv infusion 125 mL/hr INTRAVENOUS CONTINUOUS Nigel (Res) Pondera 125 mL/hr at 06/10/202247 1 25 mL/hr at 06/10/202247 - [MAR Hold due [...] Physical, not otherwise documented in primary service romaine fink notes: No This contains updated information obtained within 48 hours o f Surgery/Procedure. SIGNATURE: Ruben Thompson MD PATIENT NAME: Sally joseph DATE: June 11, 2020 TIME: 9:49 AM CSN: [id number] anes post on 06-11 ANES POST HNO ID: [id number] Normal 06-11-2020 [facility] Author: [facility] ([id number]) Service: Anesthesiology Author Type: Physician Type: Anesthesia [...] safe and adequate airway control. The patient al s appropriate pain relief and no significant post operative nausea or vomi ting. The patient has achieved baseline mental status. Intra-Operative Events: No Significant Anesthesia Events Further assessment by Anesthesia Service: None Other Remarks: SIGNATURE: Edwin Sesay MD PATIENT NAME: Sally caldwell DATE: June 11, 2020 TIME: 3:36 PM PAGER/CONTACT #: progress on 2020-05 PROGRESS HNO ID: [id number] Normal 06-10-2020 [facility] Author: Mer PickardRnJoao Bejarano RN [place] ([id number]) Service: Nursing Author Type: Registered Nurse Type: Progress Notes Filed: 06/10/2020 7:50 AM Note Text: ICU nurse was called to help with the blood draw. However, t he patient refused blood draw on the site with good veins per angel oliver. She is insisting on the site without veins. Patient agitated and in sisted that she does not want to get stuck anymore. Surgery resident Kimmie was notified. PROGRESS HNO ID: [id number] Normal 06-10-2020 [facility] Author: Kimmie Beck [facility] ([id number]) Service: General Surgery Author Type: Resident Type: [...] questions or concerns Mon-Thu 6a-5p please page [phone]. After 5pm and on Weekends and Holidays, please page [phone]. SUBJECTIVE: NAEON. Afebrile. Patient resting in bed [...] Air IANDO: Date 06/09/20 07 - 06/10/20 0659 06/10/20 0700 - 06/11/20 0659 Shift 6939-3852 1674-0303 4748-7922 24 Hour Total 8770-3999 0081-3605 0722-2763 24 Hour Total INTAKE PO 222 472 6075 PO 719 015 3513 Shift Total 581 839 5238 OUTPUT Urine Urine Not Saved. 2 x [...] SIGNATURE: Kimmie Jennings DO PATIENT NAME: Sally Vargas DATE: June 10, 2020 TIME: 7:29 AM Pager: see below Elective General Surgery Service Pager: For questions or concerns Thu-Thu 6a-5p please page [phone]. After 5pm and on Weekends and Holidays, please page [phone] if in ICU or [phone] if on RNF. PROGRESS HNO ID: [id number] Normal 06-10-2020 [facility] Author: Mer (Rn) LUCIUS Bejarano [place] ([id number]) Service: Nursing Author Type: Registered Nurse Type: [...] mg/dL Normal 0 [facility] (71285) Comment: Performed By: #### CBCD1 ### # [address] [address] magnesium blood on 2020-06-10 Magnesium [Mass/Vol] 1.8 1.7-2.3 mg/dL Normal 0 [facility] (27302) Comment: Performed By: #### CBCD1 ### # [address] [address] coronavirus 2019 on 2020-06-10 COVID 19 Result CORE SHAPER Negative CORNEG Normal 06-10-2020 [facility] (55150) Comment: Result Comment: Negative for COVID19 (SARS CoV2) by PCR. This test was developed and its performance characteristics determined by [facility]'s [facility] [place]. This test has bee n authorized by FDA under an Emergency Use Authorization (EUA). This test has been validated in accordance with the FDA's Guidance Document Policy for Diagnostics Test ing in Laboratories Certified to Perform High Complexity Testing under CLI A prior to Emergency use Authorization for Coronavirus Disease 2019 dur ing the Public [facility] Emergency issued on November 12, 2019. Performing Laboratory: [facility] Labor[facility] s [address] [place] [address] Performed By: #### CBCD1 ### # [facility] [address] [place], [place] [address] basic metabolic panel on 2020-06-10 Anion gap [Moles/Vol] 10 9-18 mmol/L Normal 06-10-20 [facility] (47920) Comment: Performed By: #### CBCD1 ### # [address] [address] Calcium [Mass/Vol] 9.2 8.5-10.2 mg/dL Normal 06-10-2020 [facility] (62756) Comment: Performed By: #### CBCD1 ### # [facility] [address] [place], [place] [address] Chloride [Moles/Vol] 102 97-105 mmol/L Normal 0 [facility] [employer] [facility] (92620) Comment: Performed By: #### CBCD1 ### # [facility] [address] [place], [place] [address] CO2 Blood 27 22-30 mmol/L Normal 06-10-2020 [facility] (43512) Comment: Performed By: #### CBCD1 ### # [facility] [address] [place], [place] [address] Creatinine [Mass/Vol] 0.90 0.58-0.96 mg/dL Normal 06-10-20 20 [facility] [employer] [facility] (00 000) Comment: Performed By: #### CBCD1 ### # [facility] [address] [place], [place] [address] Glucose [Mass/Vol] 105 74-99 mg/dL High 06-10-2020 [facility] [employer] [facility] (75183) Comment: Result Comment: The [place] Diabetes Association (ADA) provides guidance for cutoff [...] Standards of Medical Care in Diabetes 2016; [place] Diabetes Association. Diabetes Care. 2016;39(Suppl 1). Performed By: #### CBCD1 ### # [place] [address] Potassium [Moles/Vol] 3.7 3.7-5.1 mmol/L Normal 06-10-20 [facility] (00 000) Comment: Performed By: #### CBCD1 ### # [place] [address] Sodium [Moles/Vol] 139 136-144 mmol/L Normal 06-10-2020 [facility] (94285) Comment: Performed By: #### CBCD1 ### # [place] [address] Urea nitrogen [Mass/Vol] 8 7-21 mg/dL Normal 06-10 [facility] (82179) Comment: Performed By: #### CBCD1 ### # [place] [address] allied health on 03-06-27 ALLIED HNO ID: [id number] Normal 06-10-2020 [facility] Author: Chaplain Suarez (Chaplain) General Service: Spiritual Care Medical Author Type: Fur Cleaner Center Type: Allied Health ([id number]) Filed: 06/10/2020 7:39 PM Note Text: SPIRITUALCARE Spiritual Care Visit- Brief Note Name: Sally Vargas Date: June 10, 2020 Notes: Pre-surgery Patient Nothing needed tonight. Fur Cleaner Signature: Chaplain Erick To contact the [facility] Department: Please call [phone] or Page the [phone] Thank you for the opportunity to be of service. This is an electronically created document. IF PRINTED, PLEASE DO NOT REMOVE FROM THE CHART OR MODIFY MT INTED COPY. progress on 2020-05 PROGRESS HNO ID: [id number] Normal 06-09-2020 [place] Author: Kimmie Jennings General Service: General Surgery Medical Author Type: Resident Center Type: Progress Notes ([id number]) Filed: 06/09/2020 7:14 AM Note Text: Attestation [...] questions or concerns Thu-Thu 6a-5p please page [phone]. After 5pm and on Weekends and Holidays, please page [phone]. SUBJECTIVE: NAEON. Afebrile. Patient resting in bed [...] O2 Therapy: Room Air IANDO: Date 06/08/20 0700 - 06/09/20 0659 06/09/20 07 - 06/10/20 0659 Shift 9008-0424 8454-4725 6042-9528 24 Hour Total 9143-6950 9095-8399 9440-6348 24 Hour Total INTAKE Shift Total OUTPUT [...] SIGNATURE: Kimmie Jennings DO PATIENT NAME: Sally Vargas DATE: June 09, 2020 TIME: 7:00 AM Pager: see below Elective General Surgery Service Pager: For questions or concerns Thu-Thu 6a-5p please page [phone]. After 5pm and on Weekends and Holidays, please page [phone] if in ICU or [phone] if on RNF. hemogram on 2020-05 Erythrocyte distribution 13.2 11.7-14.4 % Normal 06-09 [facility] width (RBC) [Ratio] System (92588) Comment: Performed By: #### GFR #### [address] [address] Hematocrit (Bld) [Volume 33.7 34.1-44.9 % Low 06-09 [facility]] System (00 000) Comment: Performed By: #### GFR #### [address] [address] Hemoglobin (Bld) [Mass/Vol] 10.6 11.2-15.7 g/dL Low [facility] (00 000) Comment: Performed By: #### GFR #### [address] [address] MCH (RBC) [Entitic mass] 28.8 25.6-32.2 pg Normal 06-09 [facility] (00 000) Comment: Performed By: #### GFR #### [address] [address] MCHC (RBC) [Mass/Vol] 31.5 31.6-34.8 % Low 06-09-20 20 [facility] (86756) Comment: Performed By: #### GFR #### [address] [address] MCV (RBC) [Entitic vol] 91.6 79.4-94.8 fl Normal 2019 [facility] (00 000) Comment: Performed By: #### GFR #### [address] [address] Platelet mean volume (Bld) 11.6 9.4-12.3 fl Normal [facility] [Entitic vol] System (56722) Comment: Performed By: #### GFR #### [facility] [address] [place], [place] [address] Platelets (Bld) [#/Vol] 199 182-369 thou/cmm Normal 2019 [facility] (00 000) Comment: Performed By: #### GFR #### [facility] 1 [place] [id number] RBC (Bld) [#/Vol] 3.68 3.93-5.22 mil/cmm Low 06-09-[address] [facility] (33476) Comment: Performed By: #### GFR #### [place] [address] RDW SD 43.9 36.4-46.3 fl Normal 06-09-2020 [facility] (16404) Comment: Performed By: #### GFR #### [place] [id number] WBC (Bld) [#/Vol] 6.47 3.98-10.04 thou/cmm Normal 06-09-2020 [facility] (00 000) Comment: Performed By: #### GFR #### [address] [address] basic metabolic panel on 2020-06-09 Anion gap [Moles/Vol] 11 9-18 mmol/L Normal 06-09-20 20 [facility] (00956) Comment: Performed By: #### GFR #### [address] [address] Calcium [Mass/Vol] 8.8 8.5-10.2 mg/dL Normal 06-09-2020 [facility] (08588) Comment: Performed By: #### GFR #### [address] [address] Chloride [Moles/Vol] 106 97-105 mmol/L High 0 [facility] [employer] [facility] (69261) Comment: Performed By: #### GFR #### [address] [place], [place] [address] CO2 Blood 24 22-30 mmol/L Normal 06-09-2020 [facility] (06173) Comment: Performed By: #### GFR #### [facility] [address] [place], [place] [address] Creatinine [Mass/Vol] 0.82 0.58-0.96 mg/dL Normal 06-09-20 [facility] (00 000) Comment: Performed By: #### GFR #### [facility] [address] [place], [place] [address] Glucose [Mass/Vol] 84 74-99 mg/dL Normal 06-09-2020 [facility] (93829) Comment: Result Comment: The [place] Diabetes Association (ADA) provides guidance for cutoff [...] Standards of Medical Care in Diabetes 2016; [place] Diabetes Association. Diabetes Care. 2016;39(Suppl 1). Performed By: #### GFR #### [facility] [address] [place], [place] [address] Potassium [Moles/Vol] 3.8 3.7-5.1 mmol/L Normal 06-09-20 20 [facility] (00 000) Comment: Performed By: #### GFR #### [facility] [address] [place], [place] [address] Sodium [Moles/Vol] 141 136-144 mmol/L Normal 06-09-2020 [facility] (34511) Comment: Performed By: #### GFR #### [facility] [address] [place], [place] [address] Urea nitrogen [Mass/Vol] 9 7-21 mg/dL Normal 06-09 [facility] (25311) Comment: Performed By: #### GFR #### [facility] [address] [place], [place] [address] protime on INR Coag (PPP) [Relative 1.07 0.90-1.30 {INR} Normal 06-08 [facility] time] System (00 000) Comment: Result Comment: Vitamin K An tagonist (VKA) Therapeutic Range: INR 2 to 3 (Target INR of 2.5) Note: For patients treated w ith VKA drugs, such as warfarin, the [place] College [employer] Chest Ph ysicians 2012 Guideline recommends a therapeutic INR range of 2 to 3 (target INR of 2.5). This recommendation includes high -risk patients with antiphospholipid syndrome with previous arter ial or venous thromboembolism, current-generation mechanica l or bioprosthetic aortic heart valve replacement. Note: Patients with bakery machine mechanic supervisor al aortic valve replacement and additional risk factors for thromboembolic events (atrial fibrillation, previous throm boembolism, LV dysfunction, hypercoagulable conditions) or an older generation mechanical AVR (i.e., ball in-Cage) or any mechanical MVR should have a INR therapeutic range of 2 .5 to 3.5 target INR of 3). Francktt GH, et al. Chest 2012 ; 141:7S-47S Calderon RA et al. [facility] 20 17; 70: 252-289 Performed By: #### GFR #### [facility] [address] [place], [place] [address] PT Coag (PPP) [Time] 11.1 9.7-13.0 sec Normal 0 [facility] (32742) Comment: Performed By: #### GFR #### [facility] [address] [place], [place] [address] phosphorous blood o n 2020-06-08 Phosphate [Mass/Vol] 3.3 2.7-4.8 mg/dL Normal 0 [facility] (31010) Comment: Performed By: #### GFR #### [facility] [address] [place], [place] [address] nursing prog on NURSING PROG HNO ID: [id number] Normal 06-08-20 20 [facility] Author: Garo (Rn) LUCIUS Jackson [facility] Service: ? ([id number]) Author Type: Registered Nurse Type: Nursing Progress Note Filed: 06/08/2020 10:56 AM Note Text: Nursing Progress Note Patient Name: Sally Vargas Patient Location: [place] [id number] Spoke with Doctor Dick regarding IV contrast allergy and th e need for steroid prep. This note was completed by: Garo Jackson RN mri panc/james wo/w ivcon on 2020-06-08 MRI PANC/JAMES WO/W Final Report Normal 0 [place] [facility] IVCON DATE OF EXAM: Jun 08 2020 6:[address] [place] [address] 0730 - MRI PANC/JAMES WO/W IVCON / ([id number]) PROCEDURE REASON: Liver lesion, >1cm, US indeterminate, [...] x 8.0 cm . 2. Normal MRCP. Superintendent Police: HERMINIO Transcribe Date/Time: Jun 08 2020 7:48P Dictated by : ALICE ALCARAZ MD This examination was interpreted and the report reviewed and electronically signed by: ALICE ALCARAZ MD on Jun 08 2020 8:42PM EST mri 3d post processing on 2020-06-08 MRI 3D POST Final Report Normal 06-08-2020 [facility] PROCESSING DATE OF EXAM: Jun 08 2020 6:31PM [facility] 0280 - MRI 3D POST PROCESSING / ([id number]) PROCEDURE REASON: Abd pain, chronic, intermittent Physician [...] x 8.0 cm . 2. Normal MRCP. Superintendent Police: HERMINIO Transcribe Date/Time: Jun 08 2020 7:48P Dictated by : ALICE ALCARAZ MD This examination was interpreted and the report reviewed and electronically signed by: ALICE ALCARAZ MD on Jun 08 2020 8:42PM EST magnesium blood on 2020-06-08 Magnesium [Mass/Vol] 2.0 1.7-2.3 mg/dL Normal 0 [facility] (29872) Comment: Performed By: #### LIP #### [facility] [address] [place], [place] [address] lipase blood on Lipase Blood 31 16-61 U/L Normal 06-08-2020 [facility] (26310) Comment: Performed By: #### GFR #### [facility] [address] [place], [place] [address] history physical on 2020-06-08 HISTORY HNO ID: [id number] Normal 06-08-2020 [place] PHYSICAL Author: Chris Kurtz General Service: General Surgery Medical Author Type: Resident Center Type: [facility] ([id number]) Filed: 06/08/2020 7:24 AM Note Text: Attestation signed by Mala Almendarez at 06/08/2020 7:09 PM Attending Note I personally saw and examined the patient. I reviewed the resident's note. I agree with the resident's assessment and plan with the [facility] wing revisions and/or additions: Admit for symptomatic hepatic cyst. Plan for cyst fenestrati on on Thursday. Signature: Mala Almendarez MD Date: 06/08/2020 Time: 7:09 PM HISTORY AND PHYSICAL EXAMINATION SERVICE DATE: 06/08/2020 SERVICE TIME: 7:12 AM Subjective CHIEF COMPLAINT: Abdominal Pain HPI: 39 year old female presents as a direct admission to [facility] with abdominal pain and a known history of hepatic cysts with rec urrent pancreatitis. Her last admission was for pancreatitis, in [facility] she had imaging showing increasing [...] Benign liver cyst 05/24/2010 CT scan at [facility] 11/2009 and 04/2010 showe 4 mm increase in size . No pain. No elevated LFTs on 03/11/2010. - Calculus of kidney 05/17/[address] Nicolas: Hospitalized age 20, and again later -- no procedures so far ([facility], [facility], 1995 [facility]) - Cancer (HCC) - Diverticulosis - [...] Approx. 3 cigarettes daily-1 pack every w [place] and [place] Substance Use Topics - Alcohol use: Yes [...] in the last 72 hours. Invalid input(s): [facility] Diagnostic tests reviewed for today's visit: Most [...] g/dL Normal 06-08-2020 [facility] (11962) Comment: Performed By: #### GFR #### [place] [address] ALP [Catalytic activity/Vol] 94 34-123 U/L Normal 0 06-08-2020 [facility] () Comment: Performed By: #### GFR #### [facility] [address] [place], [place] [address] ALT [Catalytic activity/Vol] 17 7-38 U/L Normal 0 06-08-2020 [facility] () Comment: Performed By: #### GFR #### [facility] [address] [place], [place] [address] AST [Catalytic activity/Vol] see below 13-35 Normal 0 06-08-2020 [facility] () Comment: Result Comment: Unable to as say. Specimen Hemolyzed Performed By: #### GFR #### [facility] [address] [place], [place] [address] Bilirubin [Mass/Vol] see below 0.0-0.2 Normal 0 [facility] () Comment: Result Comment: Unable to as say. Specimen Hemolyzed Performed By: #### GFR #### [address] [address] Bilirubin [Mass/Vol] 0.3 0.2-1.3 mg/dL Normal 0 [facility] (07594) Comment: Performed By: #### GFR #### [address] [address] Protein [Mass/Vol] 7.8 6.3-8.0 g/dL Normal 06-08-2020 [facility] (10023) Comment: Performed By: #### GFR #### [facility] [address] [place], [place] [address] hemogram on 2020-05 Erythrocyte distribution 13.3 11.7-14.4 % Normal 06-08 [facility] width (RBC) [Ratio] System (29096) Comment: Performed By: #### LIP #### [address] [address] Hematocrit (Bld) [Volume 38.1 34.1-44.9 % Normal 06-08 [place] [facility] fraction] System (00 000) Comment: Performed By: #### LIP #### [facility] [address] [place] [id number] Hemoglobin (Bld) 11.8 11.2-15.7 g/dL Normal 06-08-2020 [facility] [Mass/Vol] System (0 0000) Comment: Performed By: #### LIP #### [facility] [address] [place] [id number] MCH (RBC) [Entitic mass] 28.4 25.6-32.2 pg Normal 06-08 [facility] (00 000) Comment: Performed By: #### LIP #### [facility] 1 [place] [address] MCHC (RBC) [Mass/Vol] 31.0 31.6-34.8 % Low 06-08-20 20 [facility] [employer] [facility] (06200) Comment: Performed By: #### LIP #### [facility] [address] [place] [id number] MCV (RBC) [Entitic vol] 91.8 79.4-94.8 fl Normal 2019 [facility] (00 000) Comment: Performed By: #### LIP #### [facility] [address] [place] [address] Platelet mean volume (Bld) 11.6 9.4-12.3 fl Normal [facility] [Entitic vol] System (00837) Comment: Performed By: #### LIP #### [facility] [address] [place], [place] [address] Platelets (Bld) [#/Vol] 230 182-369 thou/cmm Normal 2019 [facility] [employer] [facility] (00 000) Comment: Performed By: #### LIP #### [facility] [address] [place] [id number] RBC (Bld) [#/Vol] 4.15 3.93-5.22 mil/cmm Normal 06-08-2020 [facility] [employer] [facility] (00 000) Comment: Performed By: #### LIP #### [facility] [address] [place] [id number] RDW SD 44.9 36.4-46.3 fl Normal 06-08-2020 [facility] (83652) Comment: Performed By: #### LIP #### [facility] [address] [place], [place] [address] WBC (Bld) [#/Vol] 7.30 3.98-10.04 thou/cmm Normal 06-08-2020 [facility] (00 000) Comment: Performed By: #### LIP #### [facility] [address] [place], [place] [address] case mgt init asses on 2020-06-08 CASE MGT INIT HNO ID: [id number] Normal 020 [facility] Author: Britni (Rn) LUCIUS [facility] Service: Care Management ([id number]) Author Type: Registered Nurse Type: Care Mgt Initial Assessment Filed: 06/08/2020 11:00 AM Note Text: CARE MANAGEMENT: ASSESSMENT AND DISCHARGE PLAN SERVICE DATE: June 08, 2020 SERVICE TIME: 10:50 AM PRIMARY CARE PHYSICIAN: Marcelino Mejia MD (Confirmed with patient) ADMISSION STATUS: Inpatient Needs Prior to Discharge: Pharmacy Bedside Delivery MEDICAL: [facility] MEDICAID Patient/Boot Trimmer Stated Goals: To return home to life as it was Health Insurance: [facility] Issues Impacting Discharge Plan: Uncontrolled Uncontrolled: [...] completed Advance Directive: Current Advance Directive: None Vice President Business & Corporate Development Attempted to Assist with AD Completion: Yes [...] Patient Currently Receive Any Community Services or [facility] e Care?: None Equipment Prior to [...] Completely I feel financially burdened by my met-gv-ehoaqo expenses for my prescription medication:: 0 - Disagree Completely Risk Score: 0 Patient is categorized as: Low risk < 2 Are you interested in bedside delivery of your medications? Yes Is Patient Psychosocially Complex?: No ASSESSMENT AND PLAN: Medical Needs: Medical Needs: Two or more chronic diseases Psychosocial Needs: Psychosocial Needs: None FREEDOM OF CHOICE EXPLAINED: [place] of Choice Given: No Reason Not Given: [...] 08, 2020 TIME: 10:50 AM PAGER/CONTACT #: [phone] basic metabolic panel on 2020-06-08 Anion gap [Moles/Vol] 11 9-18 mmol/L Normal 06-08-20 [facility] (17322) Comment: Performed By: #### LIP #### [facility] [address] [place], [place] [address] Calcium [Mass/Vol] 9.6 8.5-10.2 mg/dL Normal 06-08-2020 [facility] (71739) Comment: Performed By: #### LIP #### [facility] [address] [place], [place] [address] Chloride [Moles/Vol] 104 97-105 mmol/L Normal 0 [facility] (98594) Comment: Performed By: #### LIP #### [facility] [address] [place], [place] [address] CO2 Blood 25 22-30 mmol/L Normal 06-08-2020 [facility] (93057) Comment: Performed By: #### LIP #### [facility] [address] [place], [place] [address] Creatinine [Mass/Vol] 0.80 0.58-0.96 mg/dL Normal 06-08-20 [facility] (00 000) Comment: Performed By: #### LIP #### [facility] [address] [place], [place] [address] Glucose [Mass/Vol] 91 74-99 mg/dL Normal 06-08-2020 [facility] (75106) Comment: Result Comment: The [place] Diabetes Association (ADA) provides guidance for cutoff [...] Standards of Medical Care in Diabetes 2016; [place] Diabetes Association. Diabetes Care. 2016;39(Suppl 1). Performed By: #### LIP #### [facility] [address] [place], [place] [address] Potassium [Moles/Vol] 3.7 3.7-5.1 mmol/L Normal 06-08-20 [facility] (00 000) Comment: Performed By: #### LIP #### [facility] [address] [place], [place] [address] Sodium [Moles/Vol] 140 136-144 mmol/L Normal 06-08-2020 [facility] (10457) Comment: Performed By: #### LIP #### [facility] [address] [place], [place] [address] Urea nitrogen [Mass/Vol] 13 7-21 mg/dL Normal 06-08 [facility] (68787) Comment: Performed By: #### LIP #### [facility] [address] [place], [place] [address] allied health on 03-06-25 ALLIED HEALTH HNO ID: [id number] Normal 020 [facility] Author: Deepa Mcintosh) [facility] ([id number]) Service: Radiology Author Type: [employer] Paralegal Type: Allied Health Filed: 06/08/2020 7:02 PM Note Text: Spoke to Garo (RN), in regards to her itching and scratching after the MRI was completed. Garo informed me that she had been itching an d scratching all day. Garo came down and gave the patient medication for the itching and took her back to the room. Kelley Noriega ALLIED HEALTH HNO ID: [id number] Normal 020 [facility] Author: Deepa Mcintosh) [facility] ([id number]) Service: Radiology Author Type: [employer] Paralegal Type: Allied Health Filed: 06/08/2020 5:56 PM [...] PERIPHERAL IV DATA: Inpatient - refer to [facility] documentation RADIOLOGY DEPARTMENT: MR; Exam(s) Completed: Body: Pancreas/ Biliary SIGNATURE: RT Masoud PATIENT NAME: Sally Vargas DATE: June 08, 2020 TIME: 5:53 PM ALLIED HEALTH HNO ID: [id number] Normal 020 [facility] Author: Deepa (Rt) Vianey Benavides [place] ([id number]) Service: Radiology Author Type: [employer] Paralegal Type: Allied Health Filed: 06/08/2020 4:21 PM [...] AP TT reagent in use throughout the [facility]. Performed By: #### GFR #### [place] [address] hosp on 2020-06-07 HOSP Patient:Sally Vargas Normal 05-16 [place] MRN: General Height:5' 1(1.549 m) Medical Weight:197 lb 9.6 oz (89.631 kg) Center Outpatient Medications as of 06/11/20: (65289) prazosin (MINIPRESS) 1 mg cap hyoscyamine (LEVSIN) [...] the resident's assessment [facility] revisions and/or additions: Admit for symptomatic hepatic cyst. Plan for cyst fenestrati on on Thursday. Signature: Mala Almendarez MD Date: 06/08/2020 Time: 7:09 PM HISTORY AND PHYSICAL EXAMINATION SERVICE DATE: 06/08/2020 SERVICE TIME: 7:12 AM Subjective CHIEF COMPLAINT: Abdominal Pain HPI: 39 year old female presents as a direct adm ission to [facility] with abdominal pain and a known history [...] Benign liver cyst 05/24/2010 CT scan at [facility] 11/2009 and 04/2010 showe 4 mm increase in size . No pain. No elevated LFTs on 03/11/2010. - Calculus of kidney 05/17/[address] Nicolas: Hospitalized age 20, a nd again later -- no procedures so far ([facility], [place], [facility]) - Cancer (HCC) - Diverticulosis - [...] Approx. 3 cigarettes daily-1 pack every w [place] and [place] tribes Substance Use Topics - Alcohol use: Yes [...] in the last 72 hours. Invalid input(s): [facility] Diagnostic tests reviewed for today's visit: Most [...] SIGNATURE: Chris Kurtz DO PATIENT NAME: Sally Szymanski DATE: June 08, 2020 TIME: 7:12 AM Pager: see below Elective General Surgery Service Pager: For questions or concerns Thu-Thu 6a-5p please page [phone]. After 5pm and on Weekends an d Holidays, please page [phone] if in ICU or [phone] if on RNF. Britni Grimaldo, RN, RN 06/08/2020 11:00 AM Signed CARE MANAGEMENT: ASSESSMENT AND DISCHARGE PLAN SERVICE DATE: June 08, 2020 SERVICE TIME: 10:50 AM PRIMARY CARE PHYSICIAN: Marcelino Mejia MD (Confirmed with patient) ADMISSION STATUS: Inpatient Needs Prior to Discharge: Pharmacy Bedside Delivery MEDICAL: [facility] MEDICAID Patient/Boot Trimmer Stated Goals: To return home to life as it was Health Insurance: [employer] Issues Impacting Discharge Plan: Uncontrolled Uncontrolled: History [...] completed Advance Directive: Current Advance Directive: None Vice President Business & Corporate Development Attempted to Assist with AD Completion: Yes [...] Patient Currently Receive Any Community Services or Replaced by [facility] Care?: None Equipment Prior to Admission: None SOCIAL: Living Arrangements: Home Lives With: Other: See Comment(Significant other) Financial Resources: UnemployedPrimary Contact: Extended Dimple rgporfirio Contact Information Primary Emergency Contact: BEBETO [place] [...] Completely I feel financially burdened by my pur-lj-cgdhnx expens es for my prescription medication:: 0 - Disagree Completely Risk Score: 0 Patient is categorized as: Low risk < 2 Are you interested in bedside delivery of your medications? Yes Is Patient Psychosocially Complex?: No ASSESSMENT AND PLAN: Medical Needs: Medical Needs: Two or more chronic diseases Psychosocial Needs: Psychosocial Needs: None FREEDOM OF CHOICE EXPLAINED: [place] of Choice Given: No Reason Not Given: [...] 08, 2020 TIME: 10:50 AM PAGER/CONTACT #: [phone] Jasmine Chavez, RN 06/08/2020 10:56 AM Signed Nursing Progress Note Patient Name: Sally Vargas Patient Location: [place] [address]/[id number] Spoke with Doctor Dick regarding IV con trast allergy and the need for steroid prep. This note was completed by: LUCIUS Chavez RT, [place] 06/08/2020 4:21 PM Signed Called RN to get MRI order changed to w/wo per r adiology protocol. Patient is not listed as allergy to krissy olinium and creat is WNL. Will schedule STAT MRI as soon as order is changed RT Masoud, Tech 06/08/2020 5:56 PM Signed Radiology Service Progress [...] Biliary SIGNATURE: RT Masoud PATIENT NAME: Sally Vargas DATE: June 08, 2020 TIME: 5:53 PM RT Masoud, Tech 06/08/2020 7:02 PM Signed Spoke to Garo (RN), in regards to her it rachel and scratching after the MRI was completed. Garo informed me that she had been it rachel and scratching all day. Garo came down and gave the patient medication for the itching and took her back to the room. Kelley Jennings DO 06/09/2020 7:14 AM Attested Attestation signed by [...] questions or concerns Mon-Fri 6a-5p please page [phone]. After 5pm and on Weekends and Holidays, please page [phone]. SUBJECTIVE: NAEON. Afebrile. Patient resting in bed [...] Therapy: Room Air IANDO: Date 06/08/206[address] - 06/09/20 0606/09/20699 - 06/10/20 0659 Shift 3355-1798 8513-5373 23 00-0659 24 Hour Total 0930-8241 2779-1215 9818-6879 24 Hour Total INTAKE Shift Total OUTPUT [...] SIGNATURE: Kimmie Jennings DO PATIENT NAME: Sally Vargas DATE: June 09, 2020 TIME: 7:00 AM Pager: see below Elective General Surgery Service Pager: For questions or concerns Thu-Thu 6a-5p please page [phone]. After 5pm and on Weekends an d Holidays, please page [phone] if in ICU or [phone] if on RNF. Mer Bejarano, RN, RN [...] she wanted Dilaudid every 3 hours. Kimmie Jennings DO 06/10/2020 7:29 AM Attested Attestation signed [...] questions or concerns Mon-Fri 6a-5p please page [phone]. After 5pm and on Weekends and Holidays, please page [phone]. SUBJECTIVE: NAEON. Afebrile. Patient resting in bed [...] Air IANDO: Date 06/09/20 07 - 06/10/20 0659 06/10/20 0700 - 06/11/20 0659 Shift 3574-1338 1075-1819 23 00-0659 24 Hour Total 5399-6909 1522-9721 1477-5949 24 Hour Total INTAKE PO [phone] PO [phone] Shift Total [phone] OUTPUT Urine Urine Not Saved. 2 x [...] SIGNATURE: Kimmie Jennings DO PATIENT NAME: Sally Vargas DATE: June 10, 2020 TIME: 7:29 AM Pager: see below Elective General Surgery Service Pager: For questions or concerns Thu-Thu 6a-5p please page [phone]. After 5pm and on Weekends an d [...] Spiritual Care Visit- Brief Note Name: Sally Vargas Date: June 10, 2020 Notes: Pre-surgery Patient Nothing needed tonight. Fur Cleaner Signature: Chaplain Erick To contact the Spiritual Care Department: Please call [phone] or Page the On-Call Fur Cleaner at [facility] [place] [address] Thank you for the opportunity to be of service. This is an electronically created document. IF PRINTED, PLEASE DO NOT REMOVE FROM THE CHART OR MODIFY MT INTED COPY. Kimmie Jennings DO 06/11/2020 7:03 AM Cosign Needed Elective General Surgery Progress Note SERVICE DATE: 06/11/2020 Elective General Surgery Service Pager: For questions or concerns Mon-Fri 6a-5p please page [phone]. After 5pm and on Weekends and Holidays, please page [phone]. SUBJECTIVE: NAEON. Afebrile. Patient resting in bed this morning. Pain well controlled but again states that only brandon summers is working well for pain. Nausea controlled [...] kg/m? O2 Therapy: Room Air IANDO: Date 06/10/20 07 - 06/11/20 0659 06/11/20 07 - 06/12/20 0659 Shift [id number] 2062-6248 23 00-0659 24 Hour Total [id number] 1742-8199 9355-9700 24 Hour Total INTAKE PO 600 600 [...] SIGNATURE: Kimmie Jennings DO PATIENT NAME: Sally Vargas 8DATE: June 11, 2020 TIME: 7:02 AM Pager: see below Elective General Surgery Service Pager: For questions or concerns Thu-Thu 6a-5p please page [phone]. After 5pm and on Weekends an d Holidays, please page [phone] if in ICU or [phone] if on RNF. Britni Grimaldo RN, RN [...] course for DC planning needs. SIGNATURE: Britni Grimlado RN PATIENT NAME: Sally Szymanski ee DATE: June 11, 2020 TIME: 9:10 AM PAGER/CONTACT #: [phone] Ruben Thompson MD 06/11/2020 9:51 AM Signed [...] Benign liver cyst 05/24/2010 CT scan at [facility] 11/2009 and 04/2010 showe 4 mm increase in size . No pain. No elevated LFTs on 03/11/2010. - Calculus of kidney 05/17/[address] Nicolas: Hospitalized age 20, a nd again later -- no procedures so far ([facility], [facility], 1995 [facility]) - Cancer (HCC) - Diverticulosis - [...] Approx. 3 cigarettes daily-1 pack every w [place]ibo[place] and gros [place]re tribes Substance Use Topics - Alcohol use: Yes [...] POSIFLUSH) 3-5 mL INTRAVENOUS q 12 H Chirs (Res) Demshar 3 mL at 05/16 05/03 0752 - [MAR Hold due to Transfer] [...] INTRAVENOUS q 3 H PRN Nigel (Res) Pondera 1 mg at 0536 - [MAR Hold due to Transfer] NaCl 0.9% iv infusion 125 mL/hr INTRAVENOUS CONTINUOUS Nigel (Res) Cr isp 125 mL/hr at 06/10/20 2248 125 mL/hr at 06/10/20 2248 - [MAR Hold [...] SIGNATURE: Ruben Thompson MD PATIENT NAME: Sally coyne DATE: June 11, 2020 TIME: 9:49 AM CSN: [id number] Progress Notes ([facility]): Johnny Winn MD 06/06/2020 10:30 AM [...] ysts. All questions answered. MD Rebekah Cunningham Pss 06/06/2020 10:53 AM Signed Patient is calling back with additional questions after speaking with Dr. Winn today. Please call patient. cnpn on 2020-06-06 CNPN Telephone (GSTNOR) Normal 06-06-2020 [place] [facility] SALLY VARGAS ([id number]) 1980 F [place] Date Time Provider Department ([id number]) 06/06/20 JOHNNY WINN During your visit today, we [...] liver c ysts. All questions answered. MD [facility] Pss 06/06/2020 10:53 AM Signed Patient is calling back with additional questions after poli pinedo with Dr. Winn today. Please call patient. 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 Author Type: Physician Type: Progress Notes Filed: 06/05/2020 4:20 PM Note Text: AMBULATORY TELEPHONE VISIT Sally Jeana Vargas has consented to this telephone encounter. Persons [...] will order the MRI and follow-up with noelle r after this. Plan: MRI of pancreas Total Time Spent: 11 minutes Mala Almendarez MD progress on 2020-05 PROGRESS HNO ID: [id number] Normal 06-01-2020 [facility] Author: Branden (Network Navigator) [facility] [place] ([id number]) Service: ? Author Type: Development Disability Specialist Type: Progress Notes Filed: 06/01/2020 12:42 PM Note Text: Patient has follow up with next Thursday for Pancreatitis. progress on 2020-05 PROGRESS HNO ID: [id number] Normal 05-31-2020 [facility] Author: Marcelino Mejia [place] ([id number]) Service: ? Author Type: Physician Type: Progress Notes Filed: 05/31/2020 10:49 AM Note Text: Patient has a repairer general and would work on getting h er back in with them. She has been seeing them for recurring pancreatit is and stomach issues. I have nothing further I can add to her care at this time. PROGRESS HNO ID: [id number] Normal 05-31-2020 [facility] Author: Branden (Network Navigator) [facility] [place] ([id number]) Service: ? Author Type: Development Disability Specialist Type: Progress Notes Filed: 05/31/2020 8:49 AM [...] appointment. Thank you SUMMARY: Pt discharged from [facility] on May 29, 2020 Admitted for: Intractable nausea and vomitting Contact made with patient: Yes Hi my name is Branden Greg, NETWORK NAVIGATOR and I am calling from the [facility] on behalf of your PCP, Marcelino Mejia [...] like to speak with a social work retail team member to help give you support [...] I will send your request to a viscosity worker who will contact and assist you with [...] out to patient to assist with scheduling FIELD ARTILLERY RADAR OPERATOR: Rajinder Meyers status is: Active account Thank you for [...] (or call on the way if possible). morena on 2020-05-31 CNPN Telephone (GSTNOR) Normal 05-31-2020 [place] [facility] SALLY VARGAS ([id number]) 1980 [facility] Date Time Provider Department ([id number]) 05/31/20 JOHNNY WINN GSTNOR During your visit today, we recorded the following informati on about you: Pierce Sunil Hutchinson 05/31/2020 2:37 PM Signed Patient call, said she was doing ok yesterday, today having epigastric abdominal pain, nausea and vomiting. Has appt [facility] Dr[facility] Almendarez next week. Advised ER consult due to worsening of symptoms. Pierce Schwartz MA Allergies As of Date: 05/31/2020 Noted [...] mean Date Reviewed: 05/28/2020 Reviewed by: Esperanza PickardRn) LUCIUS Cerda - Fully Assessed Reason for Visit: [...] vomiting [R11.2] 05/25/2020 Encounter Status:Closed by PIERCE SCHWARTZ MA on 05/31/20 progress on 2020-05 PROGRESS HNO ID: [id number] Normal 05-30-2020 [facility] Author: Allie (Network Navigator) Skyler Lara ([id number]) Service: ? Author Type: Development Disability Specialist Type: Progress Notes Filed: 05/31/2020 8:49 AM Note Text: TRANSITIONAL CARE MANAGEMENT (TCM) COMMUNITY MONITORING PROG BRITTANI Provider Action/FYI: Message left for patient. Attempting to schedule TCM appoint ment SUMMARY: Pt discharged from [place] on 05/29. Admitted for: intractable nausea and vomiting Contact made with patient: No - scheduled next outreach for next business day in the Track Pt Outreach section Outreach ended cnptoutreach on CNPTOUTREACH Patient Outreach (FAMPWS) Normal 0 05-30-2020 [place] SALLY Martinez ([id number]) 1980 [facility] Date Time Provider Department ([id number]) 05/30/20 [facility]IG[facility] During your visit today, we recorded the following informati on about you: Allie Holland NETWORK NAVIGATOR 05/31/2020 8:49 AM Signed TRANSITIONAL CARE MANAGEMENT (TCM) COMMUNITY MONITORING PROG BRITTANI Provider Action/FYI: Message left for patient. Attempting to schedule TCM appoint ment SUMMARY: Pt discharged from [place] on 05/29. Admitted for: intractable nausea and vomiting Contact made with patient: No - scheduled next o utreach for next business day in the Track Pt Outreach section Outreach ended Branden Garza NETWORK NAVIGATOR 05/31/2020 8:49 AM Sue oliver TRANSITIONAL CARE MANAGEMENT (TCM) COMMUNITY MONITORING PROG [...] appointment. Thank you SUMMARY: Pt discharged from [facility] on May 29, 2020 Admitted for: Intractable nausea and vomitting Contact made with patient: Yes Hi my name is Branden Riverashade, NETWORK NAVIGATOR and I am calling from the [facility] on behalf of your PCP, Marcelino Mejia [...] like to speak with a social work retail team member to help give you support [...] I will send your request to a viscosity worker who will contact and assist you with [...] out to patient to assist with scheduling FIELD ARTILLERY RADAR OPERATOR: Patient Mira status is: Active account Thank [...] present (or call on the way if possib le). Marcelino Mejia MD 05/31/2020 10:49 AM Signed Patient has a repairer general and would work on getting her back [...] Date Reviewed: 05/28/2020 Reviewed by: Esperanza (Rn) LUCIUS Cerda - Fully Assessed Reason for Visit: Transition Of Care [4074] Cmt: milka, discharged 05/29. initi al outreach Prescriptions as of [...] and vomiting [R11.2] 05/25/2020 Encounter Status:Closed by [email or web address] NETWORK NAVIGATORALBAN on 05/31/20 progress on 2020-05 PROGRESS HNO ID: [id number] Canones 05-29-2020 [facility] Author: Vickie Srivastava General Service: Hospital Medicine Medical Author Type: Resident Center Type: Progress Notes ([id number]) Filed: 05/29/2020 2:51 PM Note Text: Attestation [...] You may reach the House Medicine international travel consultant currently assigned to this patient by jack mahoney their pager number on the treatment team (they will be assigned as the i ntern or resident). It is the last four digits in the phone number be ginning with ([phone]). We encourage the use of Embue Secure Chat. SUBJECTIVE HPI: 39 year old F PMHx idiopathic pancreatitis, hepatic cys ts presenting to the ED with intractable nausea and vomiting as well as RU Q abdominal pain for the past 3 days. States that she called her GI doct or Dr. Winn and he told her to come into the ED. She has a scope critical access hospital ed for 05/29 with [...] DAILY 05/25/201935 -- 05/25/201944 pneumatic compression stockings (mt,oh) VTE Prophylaxis: VTE prophylaxis appropriate GI Prophylaxis: Indicated due to chronic acid suppression th erapy as an outpatient Telemetry: no Disposition: Home Code Status: Not on file Plan of care discussed with: Provider, RN, Patient SIGNATURE: Vickie Srivastava MD PATIENT NAME: Sally shannon DATE: May 29, 2020 TIME: 1:53 PM plan of care on PLAN OF CARE HNO ID: [id number] Normal 05-29-20 [facility] Author: Irma Estrada (Pharmacist) Center ([id number]) Service: Pharmacy Author Type: Pharmacist Type: Plan of Care Filed: 05/29/2020 2:54 PM Note Text: DISCHARGE MEDICATION REVIEW BY PHARMACY Patient Name: Sally Vargas Account #: Data Unavailable Admission Date: 05/25/2020 Date of Contact: May 29, 2020 Time of Contact: 2:50 PM Medication list was reviewed by a Pharmacist for drug intera ctions or drug related problems:Yes Below is a summary of pharmacist recommendations discussed w ith LIP: Discharge medication reconciliation IRMA ESTRADA, PHARMACIST May 29, 2020 2:50 PM Pager: [phone] 05/29/2020 2:50 PM Medication List START taking [...] Your Medications These medications were sent to e- [facility]/pharmacy [id number] [place] [address] - [address] - [phone] [address] [facility] [address] ? 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 ASSISTANT medications addressed by LIP Additional comments: aggree with student note Allergies: ALLERGIES Allergen Reactions - Penicillins Rash - Cephalexin Itching - Chlorhexidine Rash Skin rash - Toradol [Ketorolac] Rash - Tramadol Rash - Asa [Salicylates] Other: See Comments ulcers - Contrast Dye [Iodin* Shortness of Breath - Ibuprofen GI Upset - Prednisone Other: See Comments makes agitated and mean Preferred Pharmacy: [facility] Current COMMERCIAL ASSISTANT Medications: Prior to Admission medications as of 05/29/20927 Medication Sig Last Dose Taking prazosin (MINIPRESS) 1 mg cap Take 1 mg by mouth daily at [facility]. Yes hyoscyamine (LEVSIN) 0.125 mg tablet [...] on empty stomach, 1/2 hr before meal. IRMA ESTRADA, PHARMACIST May 29, 2020 2:47 PM PLAN OF CARE HNO ID: [id number] Normal 05-29-[address] [place] [address] Author: Irma Estrada (Pharmacist) Center ([id number]) Service: Pharmacy Author Type: Pharmacist Type: Plan of Care Filed: 05/29/2020 2:47 PM Note Text: MEDICATION HISTORY Patient Name:Marlen Vargas : 1980 Source of history:Patient: Reliability of source: Appears re liable, clearly identified: Medication name, Medication frequency an d Timing of last dose and Pharmacy records: [facility] Pharmacy #[id number] in [place], [place] [phone] Medication Nonadherence Identified: No barriers noted The above information represents the best possible medicatio n history: Yes Additional comments: Confirmed with patient and pharmacist hanna hollis [facility] Pharm[facility] - Recent changes to medications outpatient from Dr. Winn, patient did not start Sucralfate and Promethazine prior to admission and only took 1 dose of Hyoscyamine prior to admission Zsxip-va-Swfivqoie Medication List Adjustments: Medication Regimen Changes: Promethazine [...] Comments makes agitated and mean Preferred Pharmacy: [facility] Pharmacy #[id number] phone [phone] Current COMMERCIAL ASSISTANT Medications: Prior to Admission medications as of 05/29/20 0925 Medication Sig Last Dose Taking prazosin (MINIPRESS) 1 mg cap Take 1 mg by mouth daily at [facility]. Yes hyoscyamine (LEVSIN) 0.125 mg tablet Take [...] stomach, 1/2 hr before meal. Maggi Hernandez (Electric Arc Furnace Operator) May 29, 2020 9:14 AM mdrd gfr on 2020-05 GFR/1.73 sq M >60 >60mL/min/1.73m2 mL/min/{1.73_m2} Normal [facility] among [facility] non-blacks MDRD (000 00) (S/P/Bld) [Vol rate/Area] Comment: Result Comment: If the patie nt is , multiply the result by 1.210. Performed By: #### GFR #### [address] [address] hemogram on 2020-05 Erythrocyte distribution 13.2 11.7-14.4 % Normal 05-29 [facility] width (RBC) [Ratio] System (44637) Comment: Performed By: #### LIP #### [address] [address] Hematocrit (Bld) [Volume 36.1 34.1-44.9 % Normal 05-29 [facility] fraction] System (00 000) Comment: Performed By: #### LIP #### [facility] [address] [place], [place] [address] Hemoglobin (Bld) 11.5 11.2-15.7 g/dL Normal 05-29-2020 [facility] [Mass/Vol] System (0 0000) Comment: Performed By: #### LIP #### [facility] [address] [place], [place] [address] MCH (RBC) [Entitic mass] 29.0 25.6-32.2 pg Normal 05-29 [facility] (00 000) Comment: Performed By: #### LIP #### [facility] [address] [place], [place] [address] MCHC (RBC) [Mass/Vol] 31.9 31.6-34.8 % Normal 05-29-20 20 [facility] (41389) Comment: Performed By: #### LIP #### [facility] [address] [place], [place] [address] MCV (RBC) [Entitic vol] 90.9 79.4-94.8 fl Normal 2019 [facility] (00 000) Comment: Performed By: #### LIP #### [facility] [address] [place], [place] [address] Platelet mean volume (Bld) 10.9 9.4-12.3 fl Normal [facility] [Entitic vol] System (44310) Comment: Performed By: #### LIP #### [facility] [address] [place], [place] [address] Platelets (Bld) [#/Vol] 223 182-369 thou/cmm Normal 2019 [facility] [employer] [facility] (00 000) Comment: Performed By: #### LIP #### [facility] [address] [place], [place] [address] RBC (Bld) [#/Vol] 3.97 3.93-5.22 mil/cmm Normal 05-29-2020 [facility] [employer] [facility] (00 000) Comment: Performed By: #### LIP #### [facility] [address] [place], [place] [address] RDW SD 43.5 36.4-46.3 fl Normal 05-29-2020 [facility] (25551) Comment: Performed By: #### LIP #### [facility] [address] [place], [place] [address] WBC (Bld) [#/Vol] 5.88 3.98-10.04 thou/cmm Normal 05-29-2020 [facility] (00 000) Comment: Performed By: #### LIP #### [facility] [address] [place], [place] [address] consult on CONSULT HNO ID: [id number] Normal 05-29-2020 [facility] Author: Maria Luisa Joyner [facility] Service: Pain Management ([id number]) Author Type: Physician Type: Consults Filed: 05/29/2020 11:10 AM Note Text: SALLY VARGAS 39 year old PAIN CONSULTATION: Abdominal pain, history of idiopathic verdugo creatitis. 24 HOUR COMFORT MEDICATIONS: Tylenol x0 Benadryl 50 mg x 2 Phenergan 25 mg x 2 Oxycodone 10 mg x 3 Quetiapine 100 mg daily [place] prescription history Shows occasional use of opiates, [...] hepatic cysts, and no evidence of ac [place] pancreatitis with normal lipase, and CBC. At [...] mg tab(s) (SEROquel) 100 mg ORAL DAILY Dal ir Mccall Winn 100 mg at 05/28/20 2224 - albuterol 2.5 mg /3 mL (0.083 %) 2.5 mg (PROVENTIL) 2.5 mg INHALATION q 4 H PRN Johnny Mccall Winn - estradiol 2 mg tab(s) (ESTRACE) 2 mg ORAL DAILY Johnny Sin gh Winn 2 mg at 05/27/20 0855 - pantoprazole DR 40 mg tab(s) (PROTONIX) 40 mg ORAL BEFORE BREAKFAST DAILY Johnny Mccall Winn 40 mg at 05/29/2016 - sertraline 100 mg tab(s) (ZOLOFT) 100 mg ORAL DAILY Johnny Mccall Winn 100 mg at 05/29/20 0916 - enoxaparin 40 mg injection (LOVENOX) 40 mg SUBCUTANEOUS DA FEDERICO Johnny Mccall Winn - NaCl 0.9% iv infusion 100 mL/hr INTRAVENOUS CONTINUOUS Milo palafox Mccall Winn 100 mL/hr at 05/28/20 0919 100 mL/hr at 05/28/20 0919 - promethazine 25 mg tab(s) (PHENERGAN) 25 mg ORAL q 6 H PRN Johnny Mccall Winn 25 mg at 05/28/20 1636 - acetaminophen 650 mg tab(s) (TYLENOL) 650 mg ORAL q 4 H MT N Johnny Personhu - prazosin (MINIPRESS) 1 mg cap, Take [...] Approx. 3 cigarettes daily-1 pack every w [place] and [place] tribes Substance Use Topics - Alcohol use: Yes [...] mmol/L Normal 05-29-20 [facility] (15887) Comment: Performed By: #### LIP #### [facility] [address] [place], [place] [address] Calcium [Mass/Vol] 8.8 8.5-10.2 mg/dL Normal 05-29-2020 [facility] (16443) Comment: Performed By: #### LIP #### [facility] [address] [place], [place] [address] Chloride [Moles/Vol] 104 97-105 mmol/L Normal 0 [facility] (06169) Comment: Performed By: #### LIP #### [facility] [address] [place], [place] [address] CO2 Blood 23 22-30 mmol/L Normal 05-29-2020 [facility] (36120) Comment: Performed By: #### LIP #### [facility] [address] [place], [place] [address] Creatinine [Mass/Vol] 0.78 0.58-0.96 mg/dL Normal 05-29-20 [facility] (00 000) Comment: Performed By: #### LIP #### [facility] [address] [place], [place] [address] Glucose [Mass/Vol] 88 74-99 mg/dL Normal 05-29-2020 [facility] (30294) Comment: Result Comment: The [place] Diabetes Association (ADA) provides guidance for cutoff [...] Standards of Medical Care in Diabetes 2016; [place] Diabetes Association. Diabetes Care. 2016;39(Suppl 1). Performed By: #### LIP #### [place] [address] Potassium [Moles/Vol] 3.4 3.7-5.1 mmol/L Low 05-29-20 [facility] (30089) Comment: Performed By: #### LIP #### [place] [address] Sodium [Moles/Vol] 138 136-144 mmol/L Normal 05-29-2020 [facility] (65924) Comment: Performed By: #### LIP #### [place] [address] Urea nitrogen [Mass/Vol] 6 7-21 mg/dL Low 05-29 [facility] (55805) Comment: Performed By: #### LIP #### [place] [address] surgical tissue exam on 2020-05-28 Surgical Tissue Test performed at [facility] Normal 05-28-[address] [place] [address] [facility] [address] [place] [address] ([id number]) NAME: SALLY VARGAS REQUESTING: JOHNNY WINN MD COPY TO: MARCELINO [...] 1 Comment: Performed By: #### LIP #### [place] [address] pt ed on 2020-05-28 PT ED HNO ID: [id number] Normal 05-28-2020 [facility] Author: Flakita Ragland RN [place] ([id number]) Service: Nursing Author Type: Registered Nurse Type: [...] Flakita Ragland RN PT ED HNO ID: [id number] Canones 05-28-2020 [facility] Author: Flakita Ragland RN Center ([id number]) Service: Nursing Author Type: Registered Nurse Type: [...] RN progress on 2020-05 PROGRESS HNO ID: [id number] Normal 05-28-2020 [place] Author: Vickie ([facility] Service: Hospital Medicine Medical Author Type: Resident Center Type: Progress Notes ([id number]) Filed: 05/28/2020 1:52 PM Note Text: Attestation [...] You may reach the House Medicine international travel consultant currently assigned to this patient by findin g their pager number on the treatment team (they will be assigned as the i ntern or resident). It is the last four digits in the phone number be ginning with ([phone]). We encourage the use of Embue Secure Chat. SUBJECTIVE HPI: 39 year old F PMHx idiopathic pancreatitis, hepatic cys ts presenting to the ED with intractable nausea and vomiting as well as RU Q abdominal pain for the past 3 days. States that she called her GI doct or Dr. Winn and he told her to come into the ED. She has a scope critical access hospital ed for 05/29 with [...] 05/25/20 193 -- 05/25/201944 pneumatic compression stockings (mt,wa) VTE Prophylaxis: VTE prophylaxis appropriate GI Prophylaxis: Indicated due to chronic acid suppression th erapy as an outpatient Telemetry: no Disposition: Home Code Status: Not on file Plan of care discussed with: Provider, RN, Patient SIGNATURE: Vickie Srivastava MD PATIENT NAME: Sally shannon DATE: May 28, 2020 TIME: 1:53 PM operative no on 202 OPERATIVE NO HNO ID: [id number] Normal 05-28-20 [facility] Author: Johnny Mccall [facility] Service: Gastroenterology ([id number]) Author Type: Physician Type: Operative Report Filed: 05/28/2020 1:07 PM Note Text: OPERATIVE/PROCEDURE REPORT LOG ID: [id number] Surgery/Procedure Date: 05/28/2020 Incision/Procedure Start Time: 12:32 PM Incision Close/Procedure End Time: 1:00 PM Surgeon(s)/Proceduralist(s) and Bus Analyst(s): Surgeon(s) and Role: * Johnny Personhu - Primary No Additional Staff Procedure(s): Endoscopic Ultrasound (EUS) Esophagogastroduodenoscopy (EGD) and biopsy Anesthesia: Monitored Anesthesia Care Brief History: Ms Vargas with chronic persistent abdominal pain associated with nausea, vomiting/ loose stools, one episode of pancreatitis of unclear etiology, cholecystectomy 1999 here for EGD/EUS for evaluation of pancreas. [...] PPI. nursing prog on NURSING HNO ID: [id number] Normal 05-28-2020 [place] [facility] Author: Rupal (Rn) LUCIUS Benitez General Service: Nursing Med ical Author Type: [facility] Type: Nursing Progress Note ([id number]) Filed: 05/28/2020 5:25 AM Note Text: Nursing Progress Note Patient Name: Sally Vargas Patient Location: [id number]- Attempted to draw AM labs. Was unsuccessful x 2 attempts. This note was completed by: Rupal Benitez RN hemogram on 2020-05 Erythrocyte distribution 13.2 11.7-14.4 % Normal 05-28 [facility] width (RBC) [Ratio] System ([id number]) Comment: Performed By: #### LIP #### [address] [address] Hematocrit (Bld) [Volume 32.2 34.1-44.9 % Low 05-28 [facility] fraction] System (00 000) Comment: Performed By: #### LIP #### [facility] [address] [place], [place] [address] Hemoglobin (Bld) [Mass/Vol] 10.1 11.2-15.7 g/dL Low [facility] (00 000) Comment: Performed By: #### LIP #### [facility] [address] [place], [place] [address] MCH (RBC) [Entitic mass] 28.5 25.6-32.2 pg Normal 05-28 [facility] (00 000) Comment: Performed By: #### LIP #### [facility] [address] [place], [place] [address] MCHC (RBC) [Mass/Vol] 31.4 31.6-34.8 % Low 05-28-20 20 [facility] (05981) Comment: Performed By: #### LIP #### [facility] [address] [place], [place] [address] MCV (RBC) [Entitic vol] 90.7 79.4-94.8 fl Normal 2019 [facility] (00 000) Comment: Performed By: #### LIP #### [facility] [address] [place] [id number] Platelet mean volume (Bld) 10.7 9.4-12.3 fl Normal [facility] [Entitic vol] System (18242) Comment: Performed By: #### LIP #### [facility] [address] [place], [place] [address] Platelets (Bld) [#/Vol] 186 182-369 thou/cmm Normal 2019 [facility] (00 000) Comment: Performed By: #### LIP #### [facility] [address] [place], [place] [address] RBC (Bld) [#/Vol] 3.55 3.93-5.22 mil/cmm Low 05-28-2020 [facility] (85745) Comment: Performed By: #### LIP #### [facility] [address] [place], [place] [address] RDW SD 43.3 36.4-46.3 fl Normal 05-28-2020 [facility] (67586) Comment: Performed By: #### LIP #### [facility] [address] [place], [place] [address] WBC (Bld) [#/Vol] 6.36 3.98-10.04 thou/cmm Normal 05-28-2020 [facility] (00 000) Comment: Performed By: #### LIP #### [facility] [address] [place], [place] [address] consult on CONSULT HNO ID: [id number] Normal 05-28-2020 [facility] Author: Ramone Albarado [facility] Service: Pain Management ([id number]) Author Type: Physician Type: Consults Filed: 05/28/2020 9:09 AM Note Text: SALLY VARGAS 39 year old PAIN CONSULTATION: Abdominal pain, history of idiopathic verdugo creatitis. 24 HOUR COMFORT MEDICATIONS: Oxycodone 10 mg x 3 Quetiapine 100 mg daily [place] prescription history Shows occasional use of opiates, [...] hepatic cysts, and no evidence of ac [place] pancreatitis with normal lipase, and CBC. At this time, not experiencing any fever, chills, sweats, he matemesis, hematochezia, additional GI, , constitutional, pulmonary, or other symptoms. Current Facility-Administered Medications Medication Dose Route Frequency Provider Last Rate Last Dose - oxyCODONE IR 10 mg tab(s) (ROXICODONE) 10 mg ORAL q 6 H MT N Maggi (Res) MD Mark 10 mg at 05/27/206 - sucralfate 1 g tab(s) (CARAFATE) 1 g ORAL QID Maggi (Res) MD Mark 1 g at 05/27/202005 - diphenhydrAMINE 50 mg (BENADRYL) 50 mg ORAL q 6 H PRN Christy sa (Res) MD Mark 50 mg at 05/27/206 - QUEtiapine 100 mg tab(s) (SEROquel) 100 mg ORAL DAILY Christycarolann rouse (Res) MD Mark 100 mg at 05/27/202006 - albuterol 2.5 mg /3 mL (0.083 %) 2.5 mg (PROVENTIL) 2.5 mg INHALATION q 4 H PRN Maggi (Res) MD Mark - estradiol 2 mg tab(s) (ESTRACE) 2 mg ORAL DAILY Maggi (Re s) MD Mark 2 mg at 05/27/20 0855 - pantoprazole [...] Approx. 3 cigarettes daily-1 pack every w [place] and [place] Substance Use Topics - Alcohol use: Yes [...] gap [Moles/Vol] 8 9-18 mmol/L Low 05-28-20 20 [facility] (05261) Comment: Performed By: #### LIP #### [facility] [address] [place], [place] [address] Calcium [Mass/Vol] 7.2 8.5-10.2 mg/dL Low 05-28-2020 [facility] (41123) Comment: Performed By: #### LIP #### [facility] [address] [place], [place] [address] Chloride [Moles/Vol] 111 97-105 mmol/L High 0 [facility] (78381) Comment: Performed By: #### LIP #### [facility] [address] [place], [place] [address] CO2 Blood 22 22-30 mmol/L Normal 05-28-2020 [facility] (37081) Comment: Performed By: #### LIP #### [facility] [address] [place], [place] [address] Creatinine [Mass/Vol] 0.69 0.58-0.96 mg/dL Normal 05-28-20 20 [facility] (00 000) Comment: Performed By: #### LIP #### [facility] [address] [place], [place] [address] Glucose [Mass/Vol] 73 74-99 mg/dL Low 05-28-2020 [facility] (60916) Comment: Result Comment: The [place] Diabetes Association (ADA) provides guidance for cutoff [...] Standards of Medical Care in Diabetes 2016; [place] Diabetes Association. Diabetes Care. 2016;39(Suppl 1). Performed By: #### LIP #### [facility] [address] [place], [place] [address] Potassium [Moles/Vol] 2.9 3.7-5.1 mmol/L Low 05-28-20 20 [facility] (82045) Comment: Performed By: #### LIP #### [facility] [address] [place], [place] [address] Sodium [Moles/Vol] 141 136-144 mmol/L Normal 05-28-2020 [facility] (42692) Comment: Performed By: #### LIP #### [facility] [address] [place], [place] [address] Urea nitrogen [Mass/Vol] 5 7-21 mg/dL Low 05-28 [facility] (77455) Comment: Performed By: #### LIP #### [facility] [address] [place], [place] [address] anes preop on 05-28 ANES PREOP HNO ID: [id number] Normal 05-28-2020 [facility] Author: Delon Florence [facility] Service: Anesthesiology ([id number]) Author Type: Physician Type: Anesthesia PreOp Filed: [...] Benign liver cyst 05/24/2010 CT scan at [facility] 11/2009 and 04/2010 showe 4 mm increase in size . No pain. No elevated LFTs on 03/11/2010. - Calculus of kidney 05/17/[address] Nicolas: Hospitalized age 20, and again later -- no procedures so far ([facility], [facility], 1995 [facility]) - Cancer (HCC) - Diverticulosis - [...] Approx. 3 cigarettes daily-1 pack every w [place] and [place] Substance Use Topics - Alcohol use: Yes [...] Maggi (Kiran) MD Mark 10 mg at 05/28/20 0 519 - [MAR Hold due to Transfer] sucralfate 1 g tab(s) (CARAFATE ) 1 g ORAL QID Maggi (Kiran) MD Mark 1 g at 05/28/20 0919 - [MAR Hold due to Transfer] diphenhydrAMINE 50 mg (BENADRYL ) 50 mg ORAL q 6 H PRN Maggi (Res) MD Mark 50 mg at 05/28/20 0519 - [MAR Hold due to Transfer] QUEtiapine 100 mg tab(s) (SEROq uel) 100 mg ORAL DAILY Maggi (Kiran) MD Mark 100 mg at 05/27/20 2007 - [MAR Hold due to Transfer] albuterol 2.5 mg /3 mL (0.083 % ) 2.5 mg (PROVENTIL) 2.5 mg INHALATION q 4 H PRN Maggi (Res) Paramjit vizcaino MD - [MAR Hold due to Transfer] estradiol 2 mg tab(s) (ESTRACE) 2 mg ORAL DAILY Maggi (Kiran) MD Mark 2 mg at 05/27/20 0855 - [MAR Hold due to Transfer] pantoprazole DR 40 mg tab(s) (P ROTONIX) 40 mg ORAL BEFORE BREAKFAST DAILY Maggi (Kiran) MD Mark 40 mg at 05/27/20 0853 - [MAR Hold due to Transfer] sertraline 100 mg tab(s) (ZOLOF T) 100 mg ORAL DAILY Maggi (Kiran) MD Mark 100 mg at 05/28/20918 - [MAR Hold due to Transfer] enoxaparin 40 mg injection (DONTRELL ENOX) 40 mg SUBCUTANEOUS DAILY Maggi (Kiran) MD Mark - [MAR Hold due to Transfer] NaCl 0.9% iv infusion 100 mL/hr INTRAVENOUS CONTINUOUS Maggi (Kiran) MD Mark 100 mL/hr at 05/28/20 0 919 100 mL/hr at 05/28/2019 - [MAR Hold due to Transfer] promethazine 25 mg tab(s) (PHEN ERGAN) 25 mg ORAL q 6 H PRN Maggi (Kiran) MD Mark 25 mg at 05/28/20 0 [...] May 28, 2020 TIME: 12:15 PM CSN: [id number] anes post on 05-28 ANES POST HNO ID: [id number] Normal 05-28-2020 [facility] Author: Delon Duenas [place] ([id number]) Service: Anesthesiology Author Type: Physician Type: Anesthesia PostOp Filed: 05/28/2020 1:54 PM Note Text: POST ANESTHESIA EVALUATION NOTE SERVICE DATE: 05/28/2020 SERVICE TIME: 1:54 PM : 1980 Vitals: 05/27/20 1635 05/27/20200405/28/2051305/28/20 07 Temp: 36.5 ?C (97.7 ?F) 36.4 ?C (97.5 ?F) 36.6 ?C (97.9 ?F) 36.9 ?C (98.4 ?F) 05/28/20 0705/28/20 1057 05/28/20 1312 05/28/20 1327 BP: 116/89 114/68 95/83 115/79 05/27/20200405/28/20 0514 05/28/20 0727 05/28/20 1312 Pulse: 66 72 66 75 05/28/20 0514 05/28/20 0727 05/28/20 1057 05/28/20 1327 Resp: 18 16 16 16 05/28/20 0505/28/20 0727 05/28/20 1057 05/28/20 1327 SpO2: 100% 100% 100% 99% Validated Vital Signs: Yes POST ANES STATUS: No apparent anesthetic complications. The patient is appropriately hydrated with stable respiratory and cardiovas cular status. Patient has safe and adequate airway control. The patient al s appropriate pain relief and no significant post operative nausea or vomi ting. The patient has achieved baseline mental status. Intra-Operative Events: No Significant Anesthesia Events Further assessment by Anesthesia Service: None Other Remarks: SIGNATURE: Delon Duenas DO PATIENT NAME: Sally caldwell DATE: May 28, 2020 TIME: 1:54 PM PAGER/CONTACT #: [phone] progress on 2020-05 PROGRESS HNO ID: [id number] Normal 05-27-2020 [place] Author: Vickie Srivast[facility] Service: Hospital Medicine Medical Author Type: Resident Center Type: Progress Notes ([id number]) Filed: 05/27/2020 4:19 PM Note Text: Attestation [...] You may reach the House Medicine international travel consultant currently assigned to this patient by jack mahoney their pager number on the treatment team (they will be assigned as the i ntern or resident). It is the last four digits in the phone number be ginning with ([phone]). We encourage the use of Embue Secure Chat. SUBJECTIVE HPI: 39 year old F PMHx idiopathic pancreatitis, hepatic cys ts presenting to the ED with intractable nausea and vomiting as well as RU Q abdominal pain for the past 3 days. States that she called her GI doct or Dr. Winn and he told her to come into the ED. She has a [facility] ed for [facility]29 with [...] DAILY 05/25/201935 -- 05/25/201944 pneumatic compression stockings (mt,oh) VTE Prophylaxis: VTE prophylaxis appropriate GI Prophylaxis: Indicated due to chronic acid suppression th erapy as an outpatient Telemetry: no Disposition: Home Code Status: Not on file Plan of care discussed with: Provider, RN, Patient SIGNATURE: Vickie Srivastava MD PATIENT NAME: Sally shannon DATE: May 27, 2020 TIME: 1:53 PM plan of care on PLAN OF CARE HNO ID: [id number] Normal 05-27-20 [facility] Author: Joe Romero) [facility] Service: Gastroenterology ([id number]) Author Type: Physician Bus Analyst Type: Plan of Care Filed: 05/27/2020 1:17 [...] SIGNATURE: Joe Maldonado PA-C PATIENT NAME: Sally Vargas DATE: May 27, 2020 TIME: 1:15 PM PAGER/CONTACT #: Liability Claims Representative Pager hemogram on 2020-05 Erythrocyte distribution 13.3 11.7-14.4 % Normal 05-27 [facility] width (RBC) [Ratio] System (70923) Comment: Performed By: #### LIP #### [address] [address] Hematocrit (Bld) [Volume 35.9 34.1-44.9 % Normal 05-27 [facility] fraction] System (00 000) Comment: Performed By: #### LIP #### [address] [address] Hemoglobin (Bld) 11.3 11.2-15.7 g/dL Normal 05-27-2020 [facility] [Mass/Vol] System (0 0000) Comment: Performed By: #### LIP #### [facility] [address] [place], [place] [address] MCH (RBC) [Entitic mass] 29.1 25.6-32.2 pg Normal 05-27 [facility] (00 000) Comment: Performed By: #### LIP #### [facility] [address] [place], [place] [address] MCHC (RBC) [Mass/Vol] 31.5 31.6-34.8 % Low 05-27-20 20 [facility] (44236) Comment: Performed By: #### LIP #### [facility] [address] [place], [place] [address] MCV (RBC) [Entitic vol] 92.5 79.4-94.8 fl Normal 2019 [facility] (00 000) Comment: Performed By: #### LIP #### [facility] [address] [place] [id number] Platelet mean volume (Bld) 10.6 9.4-12.3 fl Normal [facility] [Entitic vol] System (62171) Comment: Performed By: #### LIP #### [facility] [address] [place], [place] [address] Platelets (Bld) [#/Vol] 197 182-369 thou/cmm Normal 2019 [facility] (00 000) Comment: Performed By: #### LIP #### [facility] [address] [place], [place] [address] RBC (Bld) [#/Vol] 3.88 3.93-5.22 mil/cmm Low 05-27-2020 [facility] (55904) Comment: Performed By: #### LIP #### [facility] [address] [place], [place] [address] RDW SD 44.6 36.4-46.3 fl Normal 05-27-2020 [facility] (00311) Comment: Performed By: #### LIP #### [facility] [address] [place], [place] [address] WBC (Bld) [#/Vol] 6.15 3.98-10.04 thou/cmm Normal 05-27-2020 [facility] (00 000) Comment: Performed By: #### LIP #### [facility] [address] [place], [place] [address] basic metabolic panel on 2020-05-27 Anion gap [Moles/Vol] 10 9-18 mmol/L Normal 05-27-20 20 [facility] (79275) Comment: Performed By: #### LIP #### [facility] [address] [place], [place] [address] Calcium [Mass/Vol] 8.6 8.5-10.2 mg/dL Normal 05-27-2020 [facility] (39949) Comment: Performed By: #### LIP #### [facility] [address] [place], [place] [address] Chloride [Moles/Vol] 106 97-105 mmol/L High 0 [facility] (99203) Comment: Performed By: #### LIP #### [facility] [address] [place], [place] [address] CO2 Blood 24 22-30 mmol/L Normal 05-27-2020 [facility] (55012) Comment: Performed By: #### LIP #### [facility] [address] [place], [place] [address] Creatinine [Mass/Vol] 0.87 0.58-0.96 mg/dL Normal 05-27-20 20 [facility] (00 000) Comment: Performed By: #### LIP #### [facility] [address] [place], [place] [address] Glucose [Mass/Vol] 82 74-99 mg/dL Normal 05-27-2020 [facility] (95508) Comment: Result Comment: The [place] Diabetes Association (ADA) provides guidance for cutoff [...] Standards of Medical Care in Diabetes 2016; [place] Diabetes Association. Diabetes Care. 2016;39(Suppl 1). Performed By: #### LIP #### [facility] [address] [place], [place] [address] Potassium [Moles/Vol] 3.5 3.7-5.1 mmol/L Low 05-27-20 20 [facility] (16559) Comment: Performed By: #### LIP #### [facility] [address] [place], [place] [address] Sodium [Moles/Vol] 140 136-144 mmol/L Normal 05-27-2020 [facility] (36079) Comment: Performed By: #### LIP #### [facility] [address] [place], [place] [address] Urea nitrogen [Mass/Vol] 7 7-21 mg/dL Normal 05-27 [facility] (48739) Comment: Performed By: #### LIP #### [facility] [address] [place], [place] [address] progress on 2020-05 PROGRESS HNO ID: [id number] Normal 05-26-2020 [place] Author: Vickie Srivast[facility] Service: Hospital Medicine Medical Author Type: Resident Center Type: Progress Notes ([id number]) Filed: 05/26/2020 2:11 PM Note Text: Attestation signed by Oh Arreaga at 05/26/2020 2:23 PM Attending Note I personally saw and examined the patient on 05/26/20. I rev iewed the resident's note. I agree with the resident's assessment and plan unless otherwise noted. Signature: Oh Arreaga, DO Date: 05/26/2020 Time: 2:23 PM Pager: [phone] HOUSE MEDICINE SERVICE PROGRESS NOTE SERVICE DATE: May 26, 2020 SERVICE TIME: 1:53 PM NIGHT AND WEEKEND COVERAGE: From 6 AM to 5 PM: You may reach the House Medicine international travel consultant currently assigned to this patient by jack g their pager number on the treatment team (they will be assigned as the i ntern or resident). It is the last four digits in the phone number be ginning with ([phone]). We encourage the use of Embue Secure Chat. SUBJECTIVE HPI: 39 year old F PMHx idiopathic pancreatitis, hepatic cys ts presenting to the ED with intractable nausea and vomiting as well as RU Q abdominal pain for the past 3 days. States that she called her GI doct or Dr. Winn and he told her to come into the ED. She has a [facility] ed for 05/[address] Winn. Was [...] 05/25/20 193 -- 05/25/201944 pneumatic compression stockings (mt,oh) VTE Prophylaxis: VTE prophylaxis appropriate GI Prophylaxis: Indicated due to chronic acid suppression th erapy as an outpatient Telemetry: no Disposition: Home Code Status: Not on file Plan of care discussed with: Provider, RN, Patient SIGNATURE: Vickie Srivastava MD PATIENT NAME: Sally shannon DATE: May 26, 2020 TIME: 1:53 PM hemogram on 2020-05 Erythrocyte distribution 13.3 11.7-14.4 % Normal 05-26 [facility] width (RBC) [Ratio] System (07557) Comment: Performed By: #### CBC1 #### [facility] [address] [place], [place] [address] Hematocrit (Bld) [Volume 33.7 34.1-44.9 % Low 05-26 [facility] fraction] System (00 000) Comment: Performed By: #### CBC1 #### [facility] [address] [place], [place] [address] Hemoglobin (Bld) [Mass/Vol] 10.8 11.2-15.7 g/dL Low [facility] ( 000) Comment: Performed By: #### CBC1 #### [facility] [address] [place], [place] [address] MCH (RBC) [Entitic mass] 29.3 25.6-32.2 pg Normal 05-26 [facility] (00 000) Comment: Performed By: #### CBC1 #### [facility] [address] [place], [place] [address] MCHC (RBC) [Mass/Vol] 32.0 31.6-34.8 % Normal 05-26-20 20 [facility] (66135) Comment: Performed By: #### CBC1 #### [facility] [address] [place], [place] [address] MCV (RBC) [Entitic vol] 91.3 79.4-94.8 fl Normal 2019 [facility] (00 000) Comment: Performed By: #### CBC1 #### [facility] [address] [place], [place] [address] Platelet mean volume (Bld) 10.8 9.4-12.3 fl Normal [facility] [Entitic vol] System (72274) Comment: Performed By: #### CBC1 #### [facility] [address] [place], [place] [address] Platelets (Bld) [#/Vol] 226 182-369 thou/cmm Normal 2019 [facility] (00 000) Comment: Performed By: #### CBC1 #### [facility] [address] [place], [place] [address] RBC (Bld) [#/Vol] 3.69 3.93-5.22 mil/cmm Low 05-26-[address] [facility] (89076) Comment: Performed By: #### CBC1 #### [facility] [address] [place], [place] [address] RDW SD 44.3 36.4-46.3 fl Normal 05-26-2020 [facility] (12058) Comment: Performed By: #### CBC1 #### [facility] [address] [place], [place] [address] WBC (Bld) [#/Vol] 9.78 3.98-10.04 thou/cmm Normal 05-26-2020 [facility] (00 000) Comment: Performed By: #### CBC1 #### [facility] [address] [place], [place] [address] coronavirus 2019 on 2020-05-26 COVID 19 Result CORE SHAPER Negative CORNE Normal 05-26-2020 [facility] (77223) Comment: Result Comment: Negative for COVID19 (SARS CoV2) by PCR. This test was developed and its performance characteristics determined by [facility]'s [facility] [place]. This test has bee n authorized by [...] issued on November 12, 2019. Performing Laboratory: [facility] [address] [place] [address] Performed By: #### CD19X ### # [facility] [address] [place], [place] [address] consult on CONSULT HNO ID: [id number] Normal 05-26-2020 [facility] Author: Joe Romero) [facility] Service: Gastroenterology ([id number]) Author Type: Physician Bus Analyst Type: Consults Filed: 05/26/2020 11:22 AM Note [...] [facility] She states she was instructed [...] Benign liver cyst 05/24/2010 CT scan at [facility] 11/2009 and 04/2010 showe 4 mm increase in size . No pain. No elevated LFTs on 03/11/2010. - Calculus of kidney 05/17/[address] Nicolas: Hospitalized age 20, and again later -- no procedures so far ([facility], [facility], [facility]) - Cancer (HCC) - Diverticulosis - [...] Approx. 3 cigarettes daily-1 pack every w [place] Substance Use Topics - Alcohol use: Yes [...] SIGNATURE: Joe Maldonado PA-C PATIENT NAME: Sally Vargas DATE: May 26, 2020 TIME: 11:10 AM PAGER/CONTACT #: [phone] After 3PM please use on-call paging system basic metabolic panel on 2020-05-26 Anion gap [Moles/Vol] 9 9-18 mmol/L Normal 05-26-20 [facility] (54833) Comment: Performed By: #### BMP #### [facility] [address] [place], [place] [address] Calcium [Mass/Vol] 9.0 8.5-10.2 mg/dL Normal 05-26-2020 [facility] (24252) Comment: Performed By: #### BMP #### [facility] [address] [place], [place] [address] Chloride [Moles/Vol] 104 97-105 mmol/L Normal 0 [facility] (02684) Comment: Performed By: #### BMP #### [facility] [address] [place], [place] [address] CO2 Blood 25 22-30 mmol/L Normal 05-26-2020 [facility] (13031) Comment: Performed By: #### BMP #### [facility] [address] [place], [place] [address] Creatinine [Mass/Vol] 0.86 0.58-0.96 mg/dL Normal 05-26-20 20 [facility] (00 000) Comment: Performed By: #### BMP #### [facility] [address] [place], [place] [address] Glucose [Mass/Vol] 87 74-99 mg/dL Normal 05-26-2020 [facility] (56531) Comment: Result Comment: The [employer] Diabetes Association (ADA) provides guidance for cutoff [...] Standards of Medical Care in Diabetes 2016; [place] Diabetes Association. Diabetes Care. 2016;39(Suppl 1). Performed By: #### BMP #### [place] [id number] Potassium [Moles/Vol] 3.5 3.7-5.1 mmol/L Low 05-26-20 20 [facility] (71327) Comment: Performed By: #### BMP #### [address] [address] Sodium [Moles/Vol] 138 136-144 mmol/L Normal 05-26-2020 [facility] (23824) Comment: Performed By: #### BMP #### [facility] [address] [place], [place] [address] Urea nitrogen [Mass/Vol] 9 7-21 mg/dL Normal 05-26 [facility] (17487) Comment: Performed By: #### BMP #### [facility] [address] [place], [place] [address] urine drug screen o n 2020-05-25 Urine Alcohol <11 0-11 Normal 05-25-2020 [facility] (62947) Comment: Performed By: #### UDRG3 ### # [address] [address] Urine Amphetamine NEGATIVE NEGATIVE Normal 05-25-2020 [facility] (36445) Comment: Performed By: #### UDRG3 ### # [facility] [address] [place], [place] [address] Urine Barbiturates NEGATIVE NEGATIVE Normal 05-25-2020 [facility] (91140) Comment: Performed By: #### UDRG3 ### # [facility] [address] [place], [place] [address] Urine Benzodiazepine NEGATIVE NEGATIVE Normal 0 [facility] (00 000) Comment: Performed By: #### UDRG3 ### # [facility] [address] [place], [place] [address] Urine Cocaine Metab NEGATIVE NEGATIVE Normal 05-25-2020 [facility] (50713) Comment: Performed By: #### UDRG3 ### # [facility] [address] [place], [place] [address] Urine Opiates see below NEGATIVE Abnormal 05-25-2020 [facility] (08820) Comment: Result Comment: PRESUMPTIVE POSITIVE Performed By: #### UDRG3 ### # [facility] [address] [place], [place] [address] Urine Oxycodone NEGATIVE NEGATIVE Normal 05-25-2020 [facility] (36637) Comment: Performed By: #### UDRG3 ### # [facility] [address] [place], [place] [address] Urine PCP NEGATIVE NEGATIVE Normal 05-25-2020 [facility] (99853) Comment: Result Comment: Test Cutoff Unit Amphetamines 1000 ng/mL Barbiturates 200 ng/mL Benzodiazepines 200 ng/mL Cannabinoids 50 ng/mL Cocaine 300 ng/mL Opiates 300 ng/mL Oxycodone 100 ng/mL Phencyclidine 25 ng/mL Reference Range: Negative at cutoff threshold Immunoassay screen only. Experiential Therapist ss reactivity with other substances can occur [...] the same specimen through the laboratory at ([phone]) if contact ed within 48 hours of initial 1. Substance Abuse and [facility] Services Administration (2012). Clini sam Drug Testing in Primary Care Technical Assistance Shailaa tiyaquelin Series 32. Department of Health and Human Services, U SA, p.10. Performed By: #### UDRG3 ### # [facility] [address] [place] [address] Urine THC NEGATIVE NEGATIVE Normal 05-25-2020 [facility] ([address]13) Comment: Performed By: #### UDRG3 ### # [facility] [address] [place] [address] urinalysis routine on 2020-05-25 RBC LM.HPF (Urine sed) 0.0-3 0.0-5.0 Normal 020 [facility] [#/Area] System (00 000) Comment: Performed By: #### URIN2 ### # [facility] [address] [place] [address] Bacteria LM.HPF (Urine sed) NONE None Normal [facility] [#/Area] (37289) Comment: Performed By: #### URIN2 ### # [place] [address] Ep Cells Urine 21.5 0.0-5.0 /hpf High 05-25-2020 [facility] (96778) Comment: Performed By: #### URIN2 ### # [place] [address] Hyaline Cast 0.0 0.0-1.0 /lpf Normal 05-25-2020 [facility] (23893) Comment: Performed By: #### URIN2 ### # [facility] [address] [place] [address] WBC LM.HPF (Urine sed) 2.9 0.0-5.0 /hpf Normal 020 [facility] [#/Area] System (00 000) Comment: Performed By: #### URIN2 ### # [place] [address] Appearance (U) CLOUDY Normal 05-25-2020 [facility] (94724) Comment: Performed By: #### URIN2 ### # [facility] [address] [place], [place] [address] Bilirubin (U) NEGATIVE Negative mg/dL Normal 05-25-2020 [facility] [Mass/Vol] System (0 0000) Comment: Performed By: #### URIN2 ### # [facility] [address] [place], [place] [address] Color (U) YELLOW Normal 05-25-2020 [facility] (68761) Comment: Performed By: #### URIN2 ### # [facility] [address] [place], [place] [address] Glucose Ql (U) NEGATIVE Negative Normal 05-25-2020 [facility] (43891) Comment: Performed By: #### URIN2 ### # [facility] [address] [place], [place] [address] Hemoglobin,Urine NEGATIVE Negative Normal 05-25-2020 [facility] (56791) Comment: Performed By: #### URIN2 ### # [facility] [address] [place], [place] [address] Ketone Urine NEGATIVE Negative Normal 05-25-2020 [facility] (33291) Comment: Performed By: #### URIN2 ### # [facility] [address] [place], [place] [address] Leukocytes Esterase NEGATIVE Negative Normal 05-25-2020 [facility] (39954) Comment: Performed By: #### URIN2 ### # [facility] [address] [place], [place] [address] Nitrites Urine NEGATIVE Negative Normal 05-25-[address] [facility] [place] [place] [facility] (83085) Comment: Performed By: #### URIN2 ### # [facility] [address] [place], [place] [address] pH (U) 5.5 5.0-8.0 [pH] Normal 05-25-2020 [facility] (81178) Comment: Performed By: #### URIN2 ### # [facility] [address] [place], [place] [address] Protein (U) [Mass/Vol] NEGATIVE Negative mg/dL Normal 020 [facility] (00 000) Comment: Performed By: #### URIN2 ### # [facility] [address] [place], [place] [address] Specific Leon, Ur 1.024 1.005-1.030 Normal 020 [facility] (00 000) Comment: Performed By: #### URIN2 ### # [facility] [address] [place], [place] [address] Urobilinogen,Ur 0.2 0.2-1.0 EU/dL Normal 05-25-2020 [facility] (71334) Comment: Performed By: #### URIN2 ### # [facility] [address] [place], [place] [address] nursing prog on NURSING PROG HNO ID: [id number] Normal 05-25-20 [facility] Author: Eleanor PickardRn) LUCIUS Parrish [place] ([id number]) Service: ? Author Type: Registered Nurse Type: [...] dilaudid and fentanyl work best for her. [place] [facility] notified one time 4mg morphine ordered. Pt states it took her pain from 10 to an 8 . 2345: pt requesting something more for pain at this time. Re ceived oxycodone order Q6 PRN. lipase blood on Lipase Blood 25 16-61 U/L Normal 05-25-2020 [facility] (85628) Comment: Performed By: #### LIP #### [facility] [address] [place], [place] [address] hosp on 2020-05-25 HOSP Patient:Sally Vargas Normal 05-15 [place] MRN: General Height:5' 1(1.549 m) Medical Weight:200 lb 6.4 oz (90.901 kg) Center Outpatient Medications as of 05/28/20: (16744) hyoscyamine (LEVSIN) 0.125 mg tablet sucralfate (CARAFATE) [...] 32.2 % 05/28/2020 44.9 34.1 Progress Notes ([facility]): Pierce Schwartz Ma 05/25/2020 4:24 PM Signed Tried to return patient call, voicemail full. Pierce Schwartz MA Progress Notes (): Katharine Gonzalez, RN, RN 05/25/2020 7:[address] Miranda notified pt needs SAFE-T form completed. Johnnie Long MD, MD 05/26/2020 12:13 AM Signed ED Provider Note Patient Name: Sally Vargas SERVICE DATE: 05/25/20 History Patient presents with: [...] is last night, taking Tylenol for pain. Pat ient denies fevers/chills, urinary changes. Seen in February for pancreatitis. This is a 39-year-old female with history of pancreatitis presenting to the emergency room for abdominal pain. Patient has b een having epigastric and RUQ abdominal pain with radiatio n to her back since Thursday night. Patient was seen at [facility] ED on Thursday night where she was given fluids, told her labs looked fine and was discharged home. Sameer cheney follows with Dr. Winn for GI as she has a 9 cm cyst in her liver and history of pancreatitis . Patient is scheduled for endoscopy and ultrasound on . She states that Dr. Winn told her to come to [facility] ED for specific type of imaging but she cannot recall what kind. She states that she al s been having continued abdominal pain with [...] v Family history: of suicide, attempts, or [place] 1 psychiatri c disorders requiring hospitalization v Precipitants/Stressors/Interpersonal: triggering events le ading to humiliation, shame or despair (e.g; loss of relationship, fi nancial or Health status-real or antici pated). Ongoing medical illness (zohreh. 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 Intoxication. Family turmoil/chaos. History of Physical or sexual abuse. Social isolation. v Change in treatment: discharge from psychiatric hospital, provider or treatment change v Access to firearms 2.??? PROTECTIVE FACTORS pro tective factors, even if present, may not counteract significant acute risk v Internal: ability to cope with stress, voodoo beliefs, frustration tolerance v External: responsibility to [...] Benign liver cyst 05/24/2010 CT scan at [facility] 11/2009 and 04/2010 showe 4 mm increase in size . No pain. No elevated LFTs on 03/11/2010. - Calculus of kidney 05/17/[address] Nicolas: Hospitalized age 20, a nd again later -- no procedures so far ([facility], [place], [facility]) - Cancer (HCC) - Diverticulosis - [...] Approx. 3 cigarettes daily-1 pack every w ass[place] and [place] tribes Substance and Sexual Activity - Alcohol use: [...] Yahir Miranda MD SIGNATURE: MD Yahir Doll (Dena Miranda MD Resident 05/25/20 0804 Attending Note I evaluated [...] Note May 25, 2020 4:09 PM [place] Abdifatahashley was endorsed to me by Dr. Miranda [...] vomiting and pain control. MD Duran Lucas (ResJoao Pierre MD Resident 05/25/20 1610 Johnnie Long MD 05/26/20 [...] You may reach the House Medicine international travel consultant currently assigned to this patien t by finding their pager number on the treatment team (they will be assigned as the international travel consultant or resident). It is the last four digits in the phone num alyson beginning with ([phone]). We encourage the use of Embue Secure Chat. PCP: Marcelino Mejia MD Admitting Attending: No admitting provider for patient encou nter. SUBJECTIVE Chief Complaint: Intractable nausea and vomiting HPI: Sally Vargas is a 39 year old F PMHx [...] Benign liver cyst 05/24/2010 CT scan at [facility] 11/2009 and 04/2010 showe 4 mm increase in size . No pain. No elevated LFTs on 03/11/2010. - Calculus of kidney 05/17/[address] Nicolas: Hospitalized age 20, a nd again later -- no procedures so far ([facility], [facility], [facility]) - Cancer (HCC) - Diverticulosis - [...] removed - TOTAL ABDOM HYSTERECTOMY 08/31/06 Hysterectomy, [facility] FAMILY HISTORY Problem Relation Age of Onset [...] Approx. 3 cigarettes daily-1 pack every w [place] and [place] tribes Substance Use Topics - Alcohol use: Yes [...] Benign liver cyst 05/24/2010 CT scan at [facility] 11/2009 and 04/2010 showe 4 mm increase in size . No pain. No elevated LFTs on 03/11/2010. - Calculus of kidney 05/17/[address] Nicolas: Hospitalized age 20, a nd again later -- no procedures so far ([facility], [facility], [facility]) - Cancer (HCC) - Diverticulosis - [...] removed - TOTAL ABDOM HYSTERECTOMY 08/31/06 Hysterectomy, [facility] FAMILY HISTORY Problem Relation Age of Onset [...] Approx. 3 cigarettes daily-1 pack every w [place] and [place] tribes Substance Use Topics - Alcohol use: Yes Comment: Occasional - Drug use: Never MEDICATIONS: Prior to Admission Medications: hyoscyamine (LEVSIN) 0.125 mg tablet Take 1 tablet by mouth every 6 hours as needed. sucralfate (CARAFATE) 1 gram tablet Take 1 tablet by m outh four times daily. promethazine (PHENERGAN) 25 mg [...] SIGNATURE: Joe Maldonado PA-C PATIENT NAME: Sally Vargas DATE: May 26, 2020 TIME: 11:10 AM PAGER/CONTACT #: [phone] After 3PM please use on-call paging system Vickie Srivastava MD 05/26/2020 2:11 PM Attested Attestation signed by Oh Arreaga at 05/26/2020 2:23 PM Attending Note I personally saw and examined the patient on 05/26/20. I rev iewed the resident's note. I agree with the resident's assessment and plan unless otherwise noted. Signature: Oh Arreaga DO Date: 05/26/2020 Time: 2:23 PM Pager: [phone] HOUSE MEDICINE SERVICE PROGRESS NOTE SERVICE DATE: May 26, 2020 SERVICE TIME: 1:53 PM NIGHT AND WEEKEND COVERAGE: From 6 AM to 5 PM: You may reach the House Medicine international travel consultant currently assigned to this patien t by finding their pager number on the treatment team (they will be assigned as the international travel consultant or resident). It is the last four digits in the phone num alyson beginning with ([phone]). We encourage the use of Embue Secure Chat. SUBJECTIVE HPI: 39 year old [...] SIGNATURE: Joe Maldonado PA-C PATIENT NAME: Sally Vargas DATE: May 27, 2020 TIME: 1:15 PM PAGER/CONTACT #: Liability Claims Representative Pager Vickie Srivastava MD 05/27/2020 4:19 PM [...] You may reach the House Medicine international travel consultant currently assigned to this patien t by finding their pager number on the treatment team (they will be assigned as the international travel consultant or resident). It is the last four digits in the phone num alyson beginning with ([phone]). We encourage the use of Embue Secure Chat. SUBJECTIVE HPI: 39 year old [...] DAILY 05/25/201935 -- 05/25/201944 pneumatic compression stockings (mt,wa) VTE Prophylaxis: VTE prophylaxis appropriate GI Prophylaxis: [...] Signed Nursing Progress Note Patient Name: Sally Vargas Patient Location: [id number]- Attempted to draw AM labs. Was unsuccessful x 2 attempts. This note was completed by: LUCIUS Conley MD 05/28/2020 8:57 AM Incomplete HOUSE MEDICINE SERVICE PROGRESS NOTE SERVICE DATE: May 28, 2020 SERVICE TIME: 1:53 PM NIGHT AND WEEKEND COVERAGE: From 6 AM to 5 PM: You may reach the House Medicine international travel consultant currently assigned to this patien t by finding their pager number on the treatment team (they will be assigned as the international travel consultant or resident). It is the last four digits in the phone num alyson beginning with ([phone]). We encourage the use of Embue Secure Chat. SUBJECTIVE HPI: 39 year old [...] delete will not show in completed note) :[id number] } Intractable nausea and vomiting Intractable nausea [...] delete will not show in completed note) :[id number] } Medication and Non-Pharmacologic VTE Prophylaxis/Anticoagula nts Anticoagulant AND Antiplatelet Medications (From admission, onward) Start Dose Route Frequency Ordered Stop 05/25/201999 enoxaparin 40 mg injection (LOVENOX) (Me dical Risk Categories) 40 mg SUBCUTANEOUS DAILY 05/25/201935 -- 05/25/201944 pneumatic compression stockings (mt,oh) VTE Prophylaxis: VTE prophylaxis appropriate GI Prophylaxis: Indicated due to chronic acid suppression th erapy as an outpatient Telemetry: no Disposition: Home Code Status: Not on file Plan of care discussed with: Provider, RN, Patient SIGNATURE: Vickie Srivastava MD PATIENT NAME: Sally shannon DATE: May 28, 2020 TIME: 1:53 PM Ramone Gregorio MD 05/28/2020 9:09 AM Signed SALLY VARGAS 39 year old PAIN CONSULTATION: Abdominal pain, history of idiopathic verdugo creatitis. 24 HOUR COMFORT MEDICATIONS: Oxycodone 10 mg x 3 Quetiapine 100 mg daily [place] prescription history Shows occasional use of opiates, [...] 6 H PRN Maggi (Res) MD Mark 50 mg at 05/27/202235 - QUEtiapine 100 mg tab(s) (SEROquel) 10 0 mg ORAL DAILY Maggi (Res) MD Mark 100 mg at 05/27/202006 - albuterol 2.5 mg /3 mL (0.083 %) 2.5 mg (PROVE NTIL) 2.5 mg INHALATION q 4 H PRN Maggi (Res) MD Mark - estradiol 2 mg tab(s) (ESTRACE) 2 mg ORAL KEHINDE Y Maggi (Res) MD Mark 2 mg at 05/27/20 0855 - pantoprazole DR 40 mg tab(s) (PROTONIX) 40 mg ORAL BEFOR E BREAKFAST DAILY Maggi (Res) MD Mark 40 mg at 05/27/20 0853 - sertraline 100 mg tab(s) ( ZOLOFT) 100 mg ORAL DAILY Maggi (Res) MD Mark 100 mg at 05/27/20 0853 - enoxaparin 40 mg injection (LOVENOX) 40 mg SUBCUTANE OUS DAILY Maggi (Res) MD Mark - NaCl 0.9% iv infusion 100 mL/hr INTRAVENOUS CONTINUOUS Maggi (Res) MD Mark 100 mL/hr at 05/27/20 1747 100 mL/hr at 05/27/20 1747 - promethazine 25 mg tab(s) (PHENERGAN) [...] Approx. 3 cigarettes daily-1 pack every w [place] and [place] Substance Use Topics - Alcohol use: Yes [...] MPV 10.6 RDW 13.3 CMP: Recent Labs 05/27/20457 NA 140 K 3.5* CHLOR 106* CO2 [...] LIMITATIONS AFFECTING LEARNING: None Electronically Signed By: LUCIUS Kim DO 05/28/2020 12:16 PM Signed ANESTHESIOLOGY [...] Benign liver cyst 05/24/2010 CT scan at [facility] 11/2009 and 04/2010 showe 4 mm increase in size . No pain. No elevated LFTs on 03/11/2010. - Calculus of kidney 05/17/[address] Nicolas: Hospitalized age 20, a nd again later -- no procedures so far ([facility], [facility], [facility]) - Cancer (HCC) - Diverticulosis - [...] removed - TOTAL ABDOM HYSTERECTOMY 08/31/06 Hysterectomy, [facility] FAMILY HISTORY Problem Relation Age of Onset [...] Approx. 3 cigarettes daily-1 pack every w [place] and [place] tribes Substance Use Topics - Alcohol use: Yes Comment: Occasional - Drug use: Never No current facility-administered medications on file prior t o encounter. Current Outpatient Medications on File Prior to Encounter Medication Sig - hyoscyamine (LEVSIN) 0.125 mg tablet T manindre 1 tablet by mouth every 6 hours [...] Maggi (Res) MD Mark 10 mg at 05/28/20518 - [MAR Hold due to Transfer] sucralfate 1 g tab(s) (CARAFATE ) 1 g ORAL QID Maggi (Res) MD Mark 1 g at 05/28/20918 - [MAR Hold due to Transfer] diphenhydrA MINE 50 mg (BENADRYL) 50 mg ORAL q 6 H PRN Maggi (Res) MD Mark 50 mg at 05/28/20518 - [MAR Hold due to Transfer] QUEtiapine 100 mg tab(s) (SEROquel) 100 mg ORAL DAILY Maggi Jolley) MD Mark 100 mg at 05/27/202006 - [MAR Hold due to Transfer] albuterol 2.5 mg /3 mL (0.083 %) 2.5 mg (PROVENTIL) 2.5 mg INHALATION q 4 H PRN Maggi Flores MD - [MAR Hold due to Transfer] estradiol 2 mg tab(s) (ES TRACE) 2 mg ORAL DAILY Maggi Jolley) MD Mark 2 mg at 05/27/20 0855 - [MAR Hold due to Transfer] pantoprazole DR 40 mg tab(s) (PROTONIX) 40 mg ORAL BEFORE BREAKFAST DAILY Maggi Flores MD 40 mg at 0853 - [MAR Hold due to Transfer] sertraline 100 mg tab(s) (ZOLOF T) 100 mg ORAL DAILY Maggi Flores MD 100 mg at 05/28/20918 - [MAR Hold due to Transfer] enoxaparin 40 mg injection (DONTRELL ENOX) 40 mg SUBCUTANEOUS DAILY Maggi Flores MD - [NOV Hold due to Transfer] NaCl 0.9% iv infusion 100 mL/hr INTRAVENOUS CONTINUOUS Maggi Flores MD 100 mL/hr at 05/15 100 mL/hr at 05/28/20918 - [MAR Hold due to Transfer] promethazine 25 mg tab(s) (PHENERGAN) 25 mg ORAL q 6 H PRN Maggi Flores MD 25 mg at 05/28/20918 - [MAR Hold due to Transfer] acetaminoph en 650 [...] SIGNATURE: Delon Duenas DO PATIENT NAME: Sally Jensen neshiva DATE: May 28, 2020 TIME: 12:15 PM CSN: [id number] history physical on 2020-05-25 HISTORY HNO ID: [id number] Normal 05-25-2020 [place] PHYSICAL Author: Maggi Flores MD General Service: Hospital Medicine Medical Author Type: Resident Center Type: [facility] ([id number]) Filed: 05/25/2020 5:42 PM Note Text: Attestation [...] You may reach the House Medicine international travel consultant currently assigned to this patient by findin g their pager number on the treatment team (they will be assigned as the i ntern or resident). It is the last four digits in the phone number be ginning with ([phone]). We encourage the use of Embue Secure Chat. PCP: Marcelino Mejia MD Admitting Attending: No admitting provider for patient sundar ntelizabeth. SUBJECTIVE Chief Complaint: Intractable nausea and vomiting HPI: Sally Vargas is a 39 year old F PMHx idiopathic panc reatitis, hepatic cysts presenting to the ED with intractable nausea a nd vomiting as well as RUQ abdominal pain for the past 3 days. States that she called her GI doctor Dr. Winn and he told her to come into the ED. Jenny shannon has a scope scheduled for 05/29 [...] Benign liver cyst 05/24/2010 CT scan at [facility] 11/2009 and 04/2010 showe 4 mm increase in size . No pain. No elevated LFTs on 03/11/2010. - Calculus of kidney 05/17/[address] Nicolas: Hospitalized age 20, and again later -- no procedures so far ([facility], [place], [facility]) - Cancer (HCC) - Diverticulosis - [...] removed - TOTAL ABDOM HYSTERECTOMY 08/31/06 Hysterectomy, [facility] FAMILY HISTORY Problem Relation Age of Onset [...] Approx. 3 cigarettes daily-1 pack every w [place] and [place] tribes Substance Use Topics - Alcohol use: Yes [...] Comment: Performed By: #### CBCD1 ### # [address] [address] Abs Neut (ANC) 3.14 1.56-6.13 thou/cmm Normal 05-25-2020 [facility] (17154) Comment: Performed By: #### CBCD1 ### # [address] [address] Abs. Baso 0.06 0.01-0.08 thou/cmm Normal 05-25-2020 [facility] (48504) Comment: Result Comment: Smear scanne d; tech agrees with automated differential Performed By: #### CBCD1 ### # [address] [address] Abs. Prentiss 0.50 0.27-0.70 thou/cmm Normal 05-25-2020 [facility] (59345) Comment: Performed By: #### CBCD1 ### # [address] [address] Basophils/100 WBC (Bld) 0.7 % Normal 2019 [facility] (57959) Comment: Performed By: #### CBCD1 ### # [address] [address] Eosinophils (Bld) 0.30 0.00-0.31 thou/cmm Normal 05-25-2020 [facility]/Vol[facility] (41333) Comment: Performed By: #### CBCD1 ### # [address] [address] Eosinophils/100 WBC (Bld) 3.6 % Normal 05-15 [facility] (17756) Comment: Performed By: #### CBCD1 ### # [facility] [address] [place], [place] [address] Immature Grans 1.10 % Normal 05-25-[address] [facility] [place] [place] [facility] ([address]001) Comment: Performed By: #### CBCD1 ### # [facility] [address] [place], [place] [address] Lymphocytes (Bld) [#/Vol] 4.34 1.18-3.74 thou/cmm High 05-15 [facility] (00 000) Comment: Performed By: #### CBCD1 ### # [facility] [address] [place], [place] [address] Lymphocytes/100 WBC (Bld) 51.5 % Normal 05-15 [facility] (40029) Comment: Performed By: #### CBCD1 ### # [facility] [address] [place], [place] [address] Monocytes/100 WBC (Bld) 5.9 % Normal 2019 [facility] (09235) Comment: Performed By: #### CBCD1 ### # [facility] [address] [place], [place] [address] Seg Neutrophil 37.2 % Normal 05-25-[address] [facility] [place] [place] [facility] (66054) Comment: Performed By: #### CBCD1 ### # [facility] [address] [place], [place] [address] Erythrocyte distribution 13.7 11.7-14.4 % Normal 05-25 [facility] width (RBC) [Ratio] System (36428) Comment: Performed By: #### CBCD1 ### # [facility] [address] [place], [place] [address] Hematocrit (Bld) [Volume 39.7 34.1-44.9 % Normal 05-25 [facility] fraction] System (00 000) Comment: Performed By: #### CBCD1 ### # [address] [address] Hemoglobin (Bld) 12.1 11.2-15.7 g/dL Normal 05-25-2020 [facility] [Mass/Vol] System (0 0000) Comment: Performed By: #### CBCD1 ### # [facility] [address] [place], [place] [address] MCH (RBC) [Entitic mass] 28.2 25.6-32.2 pg Normal 05-25 [facility] (00 000) Comment: Performed By: #### CBCD1 ### # [facility] [address] [place], [place] [address] MCHC (RBC) [Mass/Vol] 30.5 31.6-34.8 % Low 05-25-20 20 [facility] (68902) Comment: Performed By: #### CBCD1 ### # [facility] [address] [place], [place] [address] MCV (RBC) [Entitic vol] 92.5 79.4-94.8 fl Normal 2019 [facility] (00 000) Comment: Performed By: #### CBCD1 ### # [facility] [address] [place], [place] [address] Platelet mean volume (Bld) 11.0 9.4-12.3 fl Normal [facility] [Entitic vol] System (71584) Comment: Performed By: #### CBCD1 ### # [facility] [address] [place], [place] [address] Platelets (Bld) [#/Vol] 254 182-369 thou/cmm Normal 2019 [facility] (00 000) Comment: Performed By: #### CBCD1 ### # [facility] [address] [place], [place] [address] RBC (Bld) [#/Vol] 4.29 3.93-5.22 mil/cmm Normal 05-25-[address] [facility] (00 000) Comment: Performed By: #### CBCD1 ### # [facility] [address] [place], [place] [address] RDW SD 46.5 36.4-46.3 fl High 05-25-2020 [facility] (67671) Comment: Performed By: #### CBCD1 ### # [facility] [address] [place], [place] [address] WBC (Bld) [#/Vol] 8.43 3.98-10.04 thou/cmm Normal 05-25-2020 [facility] (00 000) Comment: Performed By: #### CBCD1 ### # [facility] [address] [place], [place] [address] ed prov note on ED PROV NOTE HNO ID: [id number] Normal 05-25-20 [facility] Author: Johnnie Long MD Center ([id number]) Service: Emergency Medicine Author Type: Physician Type: ED Provider Notes Filed: 05/26/2020 12:14 AM Note Text: ED Resident Continuation of Care Note May 25, 2020 4:09 PM Sally Vargas was endorsed to me by Dr. Miranda Briefly, the patient initially presented to the ED for Abdom inal pain Signout note reviewed. Labs returned and were unremarkable. Patient has CT iodine c ontrast allergy so we had to give steroids and Benadryl prior to the CT. Patient was given 2 doses of Dilaudid while here for pain control. P atient went to CT without issue, CT demonstrated no acute abnormality ju st chronic findings including hepatic cyst and fatty liver. Patient mira l be admitted to the medical service for management of her nausea and vomi ting and pain control. MD Duran Lucas (Res) MD Ignacio Resident 05/25/20 1610 Johnnie Long MD 05/26/20 0014 ED PROV NOTE HNO ID: [id number] Normal 05-25-20 [facility] Author: Johnnie Long MD [place] ([id number]) Service: Emergency Medicine Author Type: Physician Type: ED Provider Notes Filed: 05/26/2020 12:13 AM Note Text: ED Provider Note Patient Name: Sally Vargas SERVICE DATE: 05/25/20 History Patient presents with: [...] back since night. Patient was seen at [place] ED on Thursday night where sh shiva was given fluids, told her labs looked fine and was discharged home. P raheem follows with Dr. Winn for GI as she has a 9 cm cyst in her liver and history of pancreatitis. Patient is scheduled for endoscopy and ultrasound on Thursday. She states that Dr. Winn told her t o come to [facility] ED for specific type of imaging [...] v Family history: of suicide, attempts, or [place] 1 psychiatri c disorders requiring hospitalization v Precipitants/Stressors/Interpersonal: triggering events le ading to humiliation, shame or despair (e.g; loss of relationship, fi nancial or Health status-real or anticipated). Ongoing medical illness (zohreh. 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 Intoxication. Family turmoil/chaos. Histor y of Physical or sexual abuse. Social isolation. v Change in treatment: discharge from psychiatric hospital, provider or treatment change v Access to firearms 2.??? PROTECTIVE FACTORS protective factors, even if present , may not counteract significant acute risk v Internal: ability to cope with stress, voodoo beliefs, frustration tolerance v External: responsibility to [...] Benign liver cyst 05/24/2010 CT scan at [facility] 11/2009 and 04/2010 showe 4 mm increase in size . No pain. No elevated LFTs on 03/11/2010. - Calculus of kidney 05/17/[address] Nicolas: Hospitalized age 20, and again later -- no procedures so far ([facility], [facility], 1995 [facility]) - Cancer (HCC) - Diverticulosis - [...] removed - TOTAL ABDOM HYSTERECTOMY 08/31/06 Hysterectomy, [facility] FAMILY HISTORY Problem Relation Age of Onset [...] Approx. 3 cigarettes daily-1 pack every w assiniboine and gros ventre tribes Substance and Sexual Activity - Alcohol use: [...] Yahir Miranda MD SIGNATURE: MD Yahir Doll (Dena Miranda MD Resident 05/25/20 0804 Attending Note I evaluated the patient and personally participated in the k ey components. I agree with the resident's findings and plan as documented and have discussed the case and management of the patient's care with the resident. Signature: Johnnie Long MD Date: 05/26/2020 Time: 12:13 AM Johnnie Long MD 05/26/20 0013 ed note on ED NOTE HNO ID: [id number] Normal 05-25-2020 [facility] Author: Katharine Gonzalez RN [place] ([id number]) Service: Emergency Medicine Author Type: Registered Nurse Type: ED Notes Filed: 05/25/2020 6:31 PM Note Text: RN unavailable for report at 1830 ED NOTE HNO ID: [id number] [place] 05-25-2020 [facility] Author: Katharine Gonzalez RN [place] ([id number]) Service: Emergency Medicine Author Type: Registered Nurse Type: ED Notes Filed: 05/25/2020 5:58 PM Note Text: Dr. Mukherjee notified pt asking for something for pain. ED NOTE HNO ID: [id number] [place] 05-25-2020 [facility] Author: Katharine Gonzalez RN [place] ([id number]) Service: Emergency Medicine Author Type: Registered Nurse Type: ED Notes Filed: 05/25/2020 4:00 PM Note Text: Covid swab obtained and sent. ED NOTE HNO ID: [id number] [place] 05-25-2020 [facility] Author: Katharine Gonzalez RN [place] ([id number]) Service: Emergency Medicine Author Type: Registered Nurse Type: ED Notes Filed: 05/25/2020 3:08 PM Note Text: Pt to CT by cart. ED NOTE HNO ID: [id number] [place] 05-25-2020 [facility] Author: Katharine Gonzalez RN [place] ([id number]) Service: Emergency Medicine Author Type: Registered Nurse Type: ED Notes Filed: 05/25/2020 11:55 AM Note Text: Pt complains of heat flash Temperature adjusted. Resp unla bored. ED NOTE HNO ID: [id number] Normal 05-25-2020 [facility] Author: Katharine Gonzalez RN [facility] ([id number]) Service: Emergency Medicine Author Type: Registered Nurse Type: ED Notes Filed: 05/25/2020 10:42 AM Note Text: Pt complains of itching after Dilaudid. No hives or SOB note d. Dr. Pierre notified and no orders received. Pt given ice. ED NOTE HNO ID: [id number] Normal 05-25-2020 [facility] Author: Katharine Gonzalez RN [place] ([id number]) Service: Emergency Medicine Author Type: Registered Nurse Type: ED Notes Filed: 05/25/2020 7:15 AM Note Text: Dr. Miranda notified pt needs SAFE-T form completed. ct abd/pel w ivcon on 2020-05-25 CT ABD/PEL W Final Report Normal 05-25-2020 [facility] on General IVCON DATE OF EXAM: May 25 2020 3:15PM [facility] 0530 - CT ABD/PEL W IVCON / ([id number]) PROCEDURE REASON: Nausea, vomiting Physician Interpretation EXAMINATION: [...] obe suggestive of small areas of atelectasis. Pension Administrator (topogram) images: IMPRESSION: 1. No acute intra-abdominal/pelvic abnormalities are identif ied. 2. Bilateral nephrolithiasis. No hydronephrosis is identifie d. 3. Multiple hepatic cysts measuring up to 9.5 cm. 4. Findings consistent with fatty infiltration of liver. Superintendent Police: [facility] Transcribe Date/Time: May 25 2020 3:16P Dictated by : ALICE ALCARAZ MD This examination was interpreted and the report reviewed and electronically signed by: ALICE ALCARAZ MD on May 25 2020 3:27PM EST comprehensive metabolic panel on 2020-05-25 Albumin [Mass/Vol] 4.8 3.9-4.9 g/dL Normal 05-25-2020 [facility] ([id number]) Comment: Performed By: #### CMP #### [facility] [address] [place] [address] ALP [Catalytic activity/Vol] 98 34-123 U/L Normal 0 05-25-2020 [facility] (00 000) Comment: Performed By: #### CMP #### [facility] [address] [place], [place] [address] ALT [Catalytic activity/Vol] 12 7-38 U/L Normal 0 05-25-2020 [facility] (00 000) Comment: Performed By: #### CMP #### [facility] [address] [place], [place] [address] Anion gap [Moles/Vol] 11 9-18 mmol/L Normal 05-25-20 [facility] ([id number]) Comment: Performed By: #### CMP #### [facility] [address] [place], [place] [address] AST [Catalytic activity/Vol] 14 13-35 U/L Normal 0 05-25-2020 [facility] (00 000) Comment: Performed By: #### CMP #### [facility] [address] [place], [place] [address] Bilirubin [Mass/Vol] 0.4 0.2-1.3 mg/dL Normal 0 [facility] (13285) Comment: Performed By: #### CMP #### [facility] [address] [place], [place] [address] Calcium [Mass/Vol] 9.7 8.5-10.2 mg/dL Normal 05-25-2020 [facility] (91138) Comment: Performed By: #### CMP #### [facility] [address] [place], [place] [address] Chloride [Moles/Vol] 104 97-105 mmol/L Normal 0 [facility] (08535) Comment: Performed By: #### CMP #### [facility] [address] [place], [place] [address] CO2 Blood 24 22-30 mmol/L Normal 05-25-2020 [facility] ([id number]) Comment: Performed By: #### CMP #### [facility] [address] [place], [place] [address] Creatinine [Mass/Vol] 0.95 0.58-0.96 mg/dL Normal 05-25-20 20 [facility] (00 000) Comment: Performed By: #### CMP #### [facility] [address] [place], [place] [address] Glucose [Mass/Vol] 95 74-99 mg/dL Normal 05-25-2020 [facility] (09178) Comment: Result Comment: The [place] Diabetes Association (ADA) provides guidance for cutoff [...] Standards of Medical Care in Diabetes 2016; [place] Diabetes Association. Diabetes Care. 2016;39(Suppl 1). Performed By: #### CMP #### [address] [address] Potassium [Moles/Vol] 3.6 3.7-5.1 mmol/L Low 05-25-20 [facility] (54163) Comment: Performed By: #### CMP #### [address] [address] Protein [Mass/Vol] 8.0 6.3-8.0 g/dL Normal 05-25-2020 [facility] (00501) Comment: Performed By: #### CMP #### [address] [address] Sodium [Moles/Vol] 139 136-144 mmol/L Normal 05-25-2020 [facility] (63645) Comment: Performed By: #### CMP #### [address] [address] Urea nitrogen [Mass/Vol] 11 7-21 mg/dL Normal 05-25 [facility] (29720) Comment: Performed By: #### CMP #### [address] [address] cnpn on 2020-05-25 CNPN Telephone (GSTNOR) Normal 05-25-2020 [place] SALLY Martinez ([id number]) 1980 F [place] Date Time Provider Department ([id number]) 05/25/20 JOHNNY WINN GSTSHAYY During your visit today, we recorded the following informati on about you: Pierce Schwartz Ma 05/25/2020 4:24 PM Signed Tried to return patient call, voicemail full. Pierce Schwartz MA Allergies As of Date: 05/25/2020 Noted [...] Date Reviewed: 05/25/2020 Reviewed by: Aundrea PickardRn) LUCIUS Ruiz - Fully Assessed Reason for Visit: [...] [R91.8] 01/22/2020 More... Encounter Status:Closed by PIERCE SCHWARTZ MA on 05/25/20 progress on 2020-05 PROGRESS HNO ID: [id number] Normal 05-24-2020 [facility] Author: Johnny Winn [place] ([id number]) Service: ? Author Type: Physician Type: Progress Notes Filed: 05/24/2020 3:43 PM Note Text: virtual VISIT FOLLOW UP. Changed to telephone due to poor co nnection. I had a virtual with Ms. Vargas today for follow up of abdo bhavin pain, diarrhea, nausea, vomiting. This is a virtual visit. It required patient-provider intera ction for the medical decision making as documented below. A virtual telemedicine Visit was substituted for a protoco l-required in-person visit because of the recent COVID [...] I had a phone consult With Ms Vargas yesterday for right si ded/upper abdominal pain, diarrhea, nausea, vomiting. I advised her to go to the ED. Patient went to [place] ED and mentions 'nothing was done. T ny gave me IV fluids, did some blood [...] note she presented to the ED in [place] in January 2020 for a bdominal pain of [address] abdomen was essentially unremarkable i ncluding pancreas. Was found to have lipase of 193 on 02/15/2020. Amylase normal. Hepatic function panel. ? Has h/o cholecystectomy in 1998. PAST MEDICAL HISTORY Diagnosis Date - Allergic rhinitis, cause unspecified 05/17/2008 Spring and summer - Benign liver cyst 05/24/2010 CT scan at [facility] 11/2009 and 04/2010 showe 4 mm increase in size . No pain. No elevated LFTs on 03/11/2010. - Calculus of kidney 05/17/[address] Nicolas: Hospitalized age 20, and again later -- no procedures so far ([facility], [facility], [facility]) - Cancer (HCC) - Diverticulosis - [...] removed - TOTAL ABDOM HYSTERECTOMY 08/31/06 Hysterectomy, [facility] FAMILY HISTORY Problem Relation Age of Onset [...] Approx. 3 cigarettes daily-1 pack every w assiniboine and gros ventre tribes Substance Use Topics - Alcohol use: Yes [...] t o prior study. IMPRESSION 1. Ms Vargas with h/o gastroduodenitis on EGD, sigmoid dive rticulosis on colonoscopy but otherwise poor prep, an episode of pancreati tis being evaluated for abdominal pain, diarrhea, nauesa, vomiting. Wa s advised to go to the ED yesterday - she went to [place] ED and was told that pancreas levels [...] for nausea. Advised to go to the [facility] ED if no improvement in s ymptoms. During this patient visit I have spent approximately 15 luna los in counseling regarding interpretation, education and coordinat ion of care. Johnny Winn MD 3:22 PM progress on 2020-05 PROGRESS HNO ID: [id number] Normal 05-23-2020 [facility] Author: Johnny Winn [place] ([id number]) Service: Gastroenterology Author Type: Physician Type: Progress Notes Filed: 05/24/2020 8:09 AM Note Text: Returned patient?s call. She reported worsening RUQ pain ass ociated with nausea vomiting diarrhea and bloating. Denied any fever/chil ls, cough. Advised her to go to the ED to r/o pancreatitis, complicatio n in the large liver cysts. She voiced understanding. Johnny Winn MD cnpn on 2020-05-18 CNPN Telephone (FAMPWS) Normal 05-18-2020 [place] Debra POPESALLY TORRES Jeana ([id number]) 1980 F [place] Date Time Provider Department ([id number]) 05/18/20 MARCELINO MEJIA During your visit today, we recorded the following informati on about you: Yvette Taylor RN 05/18/2020 8:21 AM Signed Pt called, [...] what will help with pain. Please advise Yvetet Mejia MD 05/18/2020 8:49 AM Signed Advise [...] patient no answer and vm full Branden Taylor RN 05/18/2020 9:12 AM Signed Pt called, verified by name and birthdate. Patient notified of provider's instructions. Patient verbalizes understanding. Pt transferr ed to PSR to schedule ortho apt Yvette Taylor RN Allergies As of Date: 05/18/2020 Noted [...] uns pecified laterality [M25.519] Order(s):CONSULT TO ORTHOPAEDICS [9026] Order #: [id number] ty: 1 FUTURE Prescriptions as of 05/18/2020 [...] [R91.8] 01/22/2020 More... Encounter Status:Closed by YVETTE TAYLOR RN on 05/18/20 xr shldr >/=3v ap/zenobia ap/othr rt on 2020-05-17 XR SHLDR >/=3V * * *Final Report* * * Normal [facility] AP/ZENOBIA AP/OTHR DATE OF EXAM: May 17 2020 12:16PM [place] ([id number]) RT WOX 5253 - XR SHLDR >/=3V AP/ZENOBIA AP/OTHR RT / [id number] PROCEDURE REASON: Acute pain of right shoulder [...] abnormalities identified i n the right shoulder. Superintendent Police: [facility] Transcribe Date/Time: May 17 2020 12:18P Dictated by : KORI BLANKENSHIP MD This examination was interpreted and the report reviewed and electronically signed by: KORI BLANKENSHIP MD on May 17 2020 12:20PM EST [id number] progress on 2020-05 PROGRESS HNO ID: [id number] Normal 05-17-2020 [facility] Author: Kylee Hills (Rt) Vianey Davenport Lara ([id number]) Service: ? Author Type: [employer] Paralegal Type: Progress Notes Filed: 05/17/2020 12:17 PM Note Text: Radiology Service Progress Note PATIENT NAME: Sally Vargas DATE OF SERVICE: May 17, 2020 TIME: [...] RT Olivier May 17, 2020 12:08 PM PROGRESS HNO ID: [id number] Normal 05-17-2020 [facility] Author: Kenia (Compliance Analyst) Bartolo L[place] ([id number]) Service: ? Author Type: Nurse Practitioner Type: Progress Notes Filed: 05/17/2020 12:45 PM Note Text: Visit Date: May 17, 2020 Patient Name: Ms.Nichole Jeana Vargas Date of : 1980 MRN/E #: [id number] Chief Complaint Patient presents with: right shoulder pain: fell in shoulder yesterday History of present illness Sally Vargas is a 39 year old female. Reports [...] Benign liver cyst 05/24/2010 CT scan at [facility] 11/2009 and 04/2010 showe 4 mm increase in size . No pain. No elevated LFTs on 03/11/2010. - Calculus of kidney 05/17/[address] Nicolas: Hospitalized age 20, and again later -- no procedures so far ([facility], [facility], [facility]) - Dysmenorrhea - History of blood [...] removed - TOTAL ABDOM HYSTERECTOMY 08/31/06 Hysterectomy, [facility] Social History Tobacco Use - Smoking status: Former Smoker Packs/day: 0.50 Years: 3.00 Pack years: 1.50 Types: Cigarettes Quit date: 01/12/2017 Years since quittin.3 - Smokeless tobacco: Never Used - Tobacco comment: Approx. 3 cigarettes daily-1 pack every w ass[place]iboine and g[place]re tribes Substance Use Topics - Alcohol use: Yes [...] persist/worsen in 1 0-14 days Kenia Mcfarland APRN.MANUELITO Discussed above plan with patient. Pt agreeable with above skyler ga on 2020-05-17 CNOV Office Visit (UCWSTR) Normal 05-17-20 [place] SALLY Martinez ([id number]) 1980 F [place] Date Time Provider Department ([id number]) 05/17/20 11:45 AM KENIA MCFARLAND (MANUELITO) [facility] During your visit today, we recorded the following informati on about you: Temperature Pulse Respiration Blood pressure 97.8 degrees 86/minute 16/minute 124/82 Weight 89.9 kg Kenia Mcfarland APRN.CNP 05/17/2020 12:45 PM Signed Visit Date: May 17, 2020 Patient Name: Ms.Nichole Jeana Vargas Date of : 1980 MRN/E #: [id number] Chief Complaint Patient presents with: right shoulder pain: fell in shoulder yesterday History of present illness Sally Vargas is a 39 year old female. Reports [...] Benign liver cyst 05/24/2010 CT scan at [facility] 11/2009 and 04/2010 showe 4 mm increase in size . No pain. No elevated LFTs on 03/11/2010. - Calculus of kidney 05/17/[address] Nicolas: Hospitalized age 20, a nd again later -- no procedures so far ([facility], [facility], [facility]) - Dysmenorrhea - History of blood [...] Approx. 3 cigarettes daily-1 pack every w assiniboine and gros ventre tribes Substance Use Topics - Alcohol use: Yes [...] persist/worsen in 1 0-14 days Kenia Mcfarland APRN.MANUELITO Discussed above plan with patient. Pt agreeable [...] Bartolo - Fully Assessed Reason for Visit: right shoulder pain [Other] Cmt: fell in shoulder yesterday Primary Visit Diagnosis:Acute pain of right shoulder [M25.51 1] Order(s):XR SHOULDER GENERAL 3V OR MORE AP/TRUE AP/OTHER RT [3270234] Order #: [id number]. #:[id number] Prescriptions as of 05/17/2020 Sig: PANTOPRAZOLE 39 [...] Acute pain of right shoulder (primary encounter juve ramos) - XR SHOULDER GENERAL 3V OR MORE [...] on 05/17/20 No panel information on 2020-05-17 [facility] ([id number]) cnpn on 2020-05-11 CNPN Telephone (GSTNOR) Normal 05-11-2020 [place] [facility] SALLY VARGAS ([id number]) 1980 F [place] Date Time Provider Department ([id number]) 05/11/20 JOHNNY WINN GSTNOR During your visit today, we recorded the following informati on about you: Eleanor Anderson Pss 05/11/2020 3:44 PM Signed She is scheduled for egd/eus for You had aslo mentioned seeing a surgeon for liver cysts I need the consult in [facility] Thank you Shahla Allergies As of Date: [...] cnco on 2020-05-11 CNCO Letter Text Normal 05-11-2019 [facility] ([id number]) progress on 2020-04 PROGRESS HNO ID: [id number] Normal 05-10-2020 [facility] Author: Johnny Winn [place] ([id number]) Service: ? Author Type: Physician Type: Progress [...] years ago but it was unsuccessful. I mentneil molina that complex cysts needs to be evaluated further. 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 Johnny Winn MD surgical pathology on 2020-05-08 SURGICAL Specimen originated from [facility] Normal 05-08-2020 [place] PATH[facility] Specimen #: [id number] Clinic Submitting Physician: JOHNNY WINN MD [place] ([id number]) FINAL DIAGNOSIS 1. Random colon, biopsy (A) [...] - Squamous mucosa with no diagnostic alteration. /george/05/09/2020 COMMENT 2. The separate fragment of gastric [...] in one cassette. Gross examination performed at [facility], [address] [place] [address] 05/08/2020 11:06:23 PM B. Received in formalin [...] in one cassette. Gross examination performed at [facility], [address] [place] [address] JT 05/08/2020 11:23:05 PM Date of Report: 05/11/2020 Date of Procedure: 05/08/2020 Date of Receipt: 05/08/2020 Submitted by: JOHNNY WINN MD Location: [facility] Diagnostic interpretation performed at [place] [address]. CLIA Number: [id number] pt ed on 2020-05-08 PT ED HNO ID: [id number] Normal 05-08-2020 [facility] Author: Penny Benedict RN [place] ([id number]) Service: ? Author Type: Registered Nurse Type: [...] history physical on 2020-05-08 HISTORY HNO ID: [id number] Normal 05-08-2020 [place] [facility] Author: Johnny Winn [facility] Service: Gastroenterology [place] Author Type: Physician ([id number]) Type: HANDP Filed: 05/08/2020 12:46 PM Note Text: HISTORY AND PHYSICAL Sally Vargas, 39 year old female here for EGD/colonosco [...] pre-op on 2019 ANES PRE-OP HNO ID: [id number] Normal 0 [facility] Author: Tania Castañeda [place] ([id number]) Service: ? Author Type: Nurse Fleecer Type: Anesthesia Preprocedure Evaluation Filed: 05/08/2020 12:36 PM Note Text: ANESTHESIOLOGY DAY OF SURGERY NOTE : 1980 * No procedures listed * * No surgeons listed * Estimated body mass index is 37.98 kg/m? as calculated from the following: Height as of 8/13/20: 154.9 cm (5' 1). Weight as of [...] SIGNATURE: Tania Castañeda APRN.CRNA PATIENT NAME: Sally Vargas DATE: May 08, 2020 TIME: 12:26 PM CSN: [id number] anes postproc eval on 2020-05-08 ANES POSTPROC EVAL HNO ID: [id number] Normal [facility] Author: Tania Castañeda [place] ([id number]) Service: ? 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 Gastrointestinal Endoscopy ([id number]) Patient Name: Sally Vargas Procedure Date: 05/08/2020 1:02 PM Date of [...] Recommendation: - Patient has a contact number [facility] for emergencies. The signs and symptoms of [...] Estimated Blood Loss: Estimated blood loss: none. Sales Representative [employer] [facility] Gastrointestinal Endoscopy ([id number]) Patient Name: Sally Vargas Procedure Date: 05/08/2020 12:47 PM Date of [...] on 2020-05-07 CNPN Telephone (GSTNOR) Normal 05-07-2020 [place] [facility] SALLY VARGAS ([id number]) 1980 F [place] Date Time Provider Department ([id number]) 05/07/20 JOHNNY WINN GSTNOR During your visit today, we recorded the following informati on about you: Pierce Schwartz Ma 05/07/2020 11:59 AM Signed ----- Message [...] did not draw the celiac panel. Pierce Schwartz [facility] PSYCHIATRIST Allergies As of Date: 05/07/2020 Noted Allergy [...] [R91.8] 01/22/2020 More... Encounter Status:Closed by PIERCE SCHWARTZ MA on 05/09/20 [facility] 2020[facility]01 [facility] Telephone (GSTNOR) Normal 05-01-2020 [place] SALLY Martinez ([id number]) 1980 F [place] Date Time Provider Department ([id number]) 05/01/20 JOHNNY WINN GSTNOR During your visit today, we recorded the following informati on about you: Pierce Schwartz Darryn 05/01/2020 3:46 PM Signed ----- Message from Johnny Winn sent at 05/01/2020 2:5 7 PM EDT ----- Normal IgG Will need EUS for unexplained pancreatitis. MD Pierce Cunningham Ma 05/01/2020 3:47 PM Signed Tried to call patient voicemail is full. Also noted celiac p elier was not drawn, left message with [facility] to contact patient for redraw Pierce Schwartz [facility] FACILITY PSYCHIATRIST Allergies As of Date: 05/01/2020 Noted Allergy [...] [R91.8] 01/22/2020 More... Encounter Status:Closed by PIERCE SCHWARTZ MA on 05/01/20 us abd spleen -nb o n 2020-04-30 US ABD SPLEEN * * *Final Report* * * Normal [facility] - DATE OF EXAM: Apr 30 2020 4:13PM [place] ([id number]) U 1232 - US ABD SPLEEN -NB / [...] cyst, enlarged compared to p rior study. Superintendent Police: HERMINIO Transcribe Date/Time: Apr 30 2020 4:19P Dictated by : KORI BLANKENSHIP MD This examination was interpreted and the report reviewed and electronically signed by: KORI BLANKENSHIP MD on Apr 30 2020 4:27PM EST [id number] us abd right upper quadrant on 2020-04-30 US ABD RIGHT * * *Final Report* * * Normal 04-14 [facility] UPPER QUADRANT DATE OF EXAM: Apr 30 2020 4:13PM [place] ([id number]) WRU 1032 - US ABD RIGHT UPPER [...] cyst, enlarged compared to p rior study. Superintendent Police: HERMINIO Transcribe Date/Time: Apr 30 2020 4:19P Dictated by : KORI BLANKENSHIP MD This examination was interpreted and the report reviewed and electronically signed by: KORI BLANKENSHIP MD on Apr 30 2020 4:27PM EST [id number] progress on 2020-04 PROGRESS HNO ID: [id number] Normal 04-30-2020 [facility] [facility] Author: Kathy Trevino (Tech) [facility] ([id number]) Service: ? Author Type: [employer] Paralegal Type: Progress Notes Filed: 04/30/2020 4:14 PM Note Text: Radiology Service Progress Note PATIENT NAME: Sally Vargas DATE OF SERVICE: April 30, 2020 TIME: [...] 2020-04 OBSOLETE Refill (FAMPWS) Normal 04-30-2020 [facility] SALLY VARGAS ([id number]) 1980 [facility] Date Time Provider Department ([id number]) 04/30/20 MARCELINO MEJIA During your visit today, we recorded the following informati on about you: Valente Dileep Hutchinson 04/30/2020 11:50 AM Signed Patient has been identified by name and date of : Yes Pending Prescriptions Disp Refills PANTOPRAZOLE 40 MG TABLET,DELAYED RELEASE 30 tablet 1 Sig: Take 1 tablet by mouth daily before breakfast. Take on empty stomach, 1/2 hr before meal. LIGIA: No RX INSTRUCTIONS: Patient aware RX will be sent to pharmacy. No need to notify patient. Valente Dileep Hutchinson Last ov: 03/2020 Last refill: 02/2020 No [...] 04/30/20 igg subclasses+total on 2020-04-30 IgG [Mass/Vol] 4817 446-4722 mg/dL Normal 04-30-2020 [facility] ([id number]) Comment: Performed By: #### IGGSUB ## ##[facility] [place], [place] [phone] IgG Subclass 1 757.6 382.4-928.6 mg/dL Normal 04-30-2020 [facility] ([id number]) Comment: Performed By: #### IGGSUB ## ##[facility] [place], [place] [id number]- [phone] IgG Subclass 2 398.2 241.8-700.3 mg/dL Normal 04-30-2020 [facility] ([id number]) Comment: Performed By: #### IGGSUB ## ##[facility] [place], [place] [phone] IgG Subclass 3 42.7 21.8-176.1 mg/dL Normal 04-30-2020 [facility] (34196) Comment: Performed By: #### IGGSUB ## ##[facility] [address] [place], [place] [id number]- [phone] IgG Subclass 4 39.7 3.9-86.4 mg/dL Normal 04-30-2020 [facility] ([id number]) Comment: Performed By: #### IGGSUB ## ##[facility] [place], [place] [phone]- [phone] cnpn on 2020-04-30 CNPN Telephone (GSTNOR) Normal 04-30-2020 [facility] SALLY VARGAS ([id number]) 1980 [facility] Date Time Provider Department ([id number]) 04/30/20 JOHNNY WINN GSTNOR During your visit today, we recorded the following informati on about you: Pierce Schwartz Ma 04/30/2020 12:16 PM Signed Tried to return call, voicemaill full Pierce Schwartz MA Allergies As of Date: 04/30/2020 Noted [...] [R91.8] 01/22/2020 More... Encounter Status:Closed by PIERCE SCHWARTZ MA on 04/30/20 No panel information on 2020-04-30 [facility] ([id number]) cnpn on 2020-04-27 CNPN Telephone (FAMPWS) Normal 04-27-2020 [facility] SALLY VARGAS ([id number]) 1980 [facility] Time Provider Department ([id number]) 04/27/20 [facility] During your visit today, we recorded the following informati on about you: Christopher Carcamo RN 04/27/2020 9:04 AM Signed Patient asking if pcp would send Rx for phenergan to [facility]. Reports she's had nausea for weeks. [...] 04/27/20 progress on 2020-04 PROGRESS HNO ID: [id number] Normal 04-26-2020 [facility] Author: Johnny Winn [facility] ([id number]) Service: ? Author Type: Physician Type: Progress Notes Filed: 04/26/2020 3:29 PM Note Text: Sally Vargas is a 39 year old female who presents for P ancreatitis, Abdominal Pain, and Nausea AND Vomiting. HPI: Ms Vargas is referred her for evaluation of an [...] note she presented to the ED in [place] in January 2020 for a bdominal pain of [address] abdomen was essentially unremarkable i ncluding pancreas. Was found to have lipase of 193 on 02/15/2020. Amylase normal. Hepatic function panel. Has h/o cholecystectomy in 1998. Denies NSAIDs. Smoking - quit 3 months ago. 1 pack/day X 15 years. Etoh - denies. Drugs - denies. Record Review: [facility] records reviewed PAST MEDICAL HISTORY Diagnosis Date - Allergic rhinitis, cause unspecified 05/17/2008spring and summer - Benign liver cyst 05/24/2010 CT scan at [facility] 11/2009 and 04/2010 showe 4 mm increase in size . No pain. No elevated LFTs on 03/11/2010. - Calculus of kidney 05/17/[address] Nicolas: Hospitalized age 20, and again later -- no procedures so far ([facility], [facility], 1995 [facility]) - Dysmenorrhea - History of blood [...] removed - TOTAL ABDOM HYSTERECTOMY 08/31/06 Hysterectomy, [facility] Allergies: ALLERGIES Allergen Reactions - Penicillins Rash [...] 40 mg tablet Take 1 tablet by daily before breakfast. Take on empty stomach, [...] Approx. 3 cigarettes daily-1 pack every w assiniboine and gros ventre tribes Substance Use Topics - Alcohol use: Yes [...] No erythema. Psychiatric: Affect normal. Assessment/Plan: MS Vargas is here for evaluation of multiple GI [...] leslie it intake. RTC 3 months/PRN. Gabby Joe NUVIA cnov on 2020-04-26 CNOV Office Visit (GSTNOR) Normal 04-26-20 20 [facility] SALLY VARGAS ([id number]) 1980 [facility] Date Time Provider Department ([id number]) 04/26/20 3:00 PM JOHNNY WINN GSTNOR During your visit today, we recorded the following informati on about you: Pulse Blood pressure Weight Height 84/minute 140/90 91.2 kg 1.549 m Johnny Winn MD 04/26/2020 3:29 PM Signed Sally Hills Sam is a 39 year old female who presents for P ancreatitis, Abdominal Pain, and Nausea AND Vomiting. HPI: Ms Vargas is referred her for evaluation of an [...] note she presented to the ED in [facility] in January 2020 for abdominal pain of [address] abdomen was essentially unremarkable includ ing pancreas. Was found to have lipase of 193 on 02/15/2020. Amylase normal. Hepatic function panel. Has h/o cholecystectomy in 1998. Denies NSAIDs. Smoking - quit 3 months ago. 1 pack/day X 15 years. Etoh - denies. Drugs - denies. Record Review: [facility] records reviewed PAST MEDICAL HISTORY Diagnosis Date - Allergic rhinitis, cause unspecified 05/17/2008spring and summer - Benign liver cyst 05/24/2010 CT scan at [facility] 11/2009 and 04/2010 showe 4 mm increase in size . No pain. No elevated LFTs on 03/11/2010. - Calculus of kidney 05/17/[address] Nicolas: Hospitalized age 20, a nd again later -- no procedures so far ([facility], [facility], [facility]) - Dysmenorrhea - History of blood [...] removed - TOTAL ABDOM HYSTERECTOMY 08/31/06 Hysterectomy, [facility] Allergies: ALLERGIES Allergen Reactions - Penicillins Rash [...] Approx. 3 cigarettes daily-1 pack every w assiniboine and g[place]re tribes Substance Use Topics - Alcohol use: Yes [...] No erythema. Psychiatric: Affect normal. Assessment/Plan: MS Vargas is here for evaluation of multiple GI [...] If you do not have a responsible tractor driver (family member or friend) with you to take you home, your exam cannot be done with sedation and will be cancelled. Please bring a list of all of your [facility] nt medications, including any Over-the Counter medications [...] the prescription bowel preparation solution at your [facility] pharmacy or drugstore pharmacy. 08/2019 Bowel Preparation [...] or limit intake. Referring Provider: MARCELINO MEJIA [[id number]] Allergies As of Date: 04/26/2020 Noted Allergy [...] doctor.Disp: 1 BottleRfl : 0 INSERT IV ([place]) [1351112] Order #: [id number]: 1 FUTURE IV DISCONTINUE [[id number]] Order #: [id number]: 1 FUTURE INSERT IV ([place]) [[id number]] Order #: [id number]: 1 EGD [[id number]] Order #: [id number] FUTURE COLONOSCOPY - DIAGNOSTIC [[id number]] Order #: [id number] FUTUR E CELIAC DISEASE PANEL [4237008] Order #: [id number] FUTURE IGG SUBCLASSES BLD [SQIGGSUB] Order #: [id number] FUTURE US ABD RT UPPER QUADRANT [6077995] Order #: [id number] FUTUR E metroNIDAZOLE (FLAGYL) 500 mg tabletTake 1 tablet by mouth t hree times daily for 7 days.Disp: 21 tabletRfl: 0 dicyclomine (BENTYL) 10 mg capsuleTake 1 capsule by mouth be fore meals and at bedtime. Use as directedDisp: 90 capsuleRfl: 1 Bifidobacterium Infantis (ALIGN) 4 mg capTake 1 capsule by m outh once daily.Disp: 30 capsuleRfl: 2 PRE-PROCEDURE AND PRE-OPERATIVE COVID [SQPOCOVD] Order #: [id number] FUTURE Prescriptions as of 04/26/2020 Sig: DIPHENHYDRAMINE [...] take a taxi or bus, or leave [facility]. If you do not have a responsible tractor driver (famil y member or friend) with [...] the prescription bowel preparation solution at your [facility] pharmacy or drugstore pharmacy. 08/2019 Bowel Preparation [...] and Disposition History Recorded Encounter Status:Closed by PA ALVARADO, JOHNNY Javier on 04/26/20 cnco on 2020-04-26 CNCO Letter Text Normal 04-26-2020 [facility] ([id number]) cnpn on 2020-04-19 CNPN Telephone (FAMWS) Normal 04-19-2020 [facility] SALLY VARGAS ([id number]) 1980 [facility] Date Time Provider Department ([id number]) 04/19/20 MARCELINO MEJIA FAMPWS During your visit today, we recorded the following informati on about you: Christopher Carcamo RN 04/19/2020 10:49 AM Signed Faxed GI referral and demographics to [facility], per patient request. . Allergies As of Date: 04/19/2020 Noted Allergy Reaction PENICILLINS 12/07/2009 2 - Rash ASA (SALICYLATES) 01/27/2011 14 - Other: See Comments Comments: ulcers CONTRAST DYE (IODINE) 05/17/2008 12 - Shortness of Breath FLAGYL (METRONIDAZOLE HCL) 03/11/2010 12 - Shortness of [place] th IBUPROFEN 06/18/2016 8 - GI Upset PREDNISONE 06/18/2016 14 - Other: See Comments Comments: makes agitated and mean Date Reviewed: 02/23/2020 Reviewed by: Marcelino Mejia - Fully Assessed Reason for Visit: Faxed to [facility] [Other] Prescriptions as of 04/19/2020 [...] Status:Closed by Christopher CARCAMO RN on 04/19/[facility]) Normal 04-18-2020 [facility] SALLY Martinez ([id number]) 1980 [place] [facility] Date Time Provider Department ([id number]) 04/18/20 [facility] During your visit today, we recorded the following informati on about you: Yvette Taylor RN 04/18/2020 2:01 PM Signed Pt called, verified by name and birthdate. Pt wants to know if she can see a GI doctor. Reviewed pt's chart and she has a GI con sult with GI group in [place]. Pt verbalized understanding, states she will call to agustin Taylor RN Allergies As of Date: 04/18/2020 Noted Allergy Reaction PENICILLINS 12/07/2009 2 - Rash ASA (SALICYLATES) 01/27/2011 14 - Other: See Comments Comments: ulcers CONTRAST DYE (IODINE) 05/17/2008 12 - Shortness of Breath FLAGYL (METRONIDAZOLE HCL) 03/11/2010 12 - Shortness of [place] th IBUPROFEN 06/18/2016 8 - GI Upset PREDNISONE 06/18/2016 14 - Other: See Comments Comments: makes agitated and mean Date Reviewed: 02/23/2020 Reviewed by: Marcelino Mejia - Fully Assessed Reason for Visit: Patient Question [5187] Prescriptions as of 04/18/2020 Sig: TOPIRAMATE 50 [...] [R91.8] 01/22/2020 More... Encounter Status:Closed by YVETTE TAYLOR RN on 04/18/20 cnpn on 2020-04-16 [facility]) Normal 04-16-2020 [facility] SALLY Martinez ([id number]) 1980 [place] Date Time Provider Department ([id number]) 04/16/20 ROOSEVELTMARCELINO SUAREZ During your visit today, we recorded the following informati on about you: Edwina Tatum DAVID 04/16/2020 11:38 AM Signed Pt calls to report she went to [facility] ER 04/12. Pt reports she went because she was having bloating and stomach pain which she thought was pancreatitis. Pt reports they ran labs and told her it wasn't pancreatitis. T ny gave her a bentyl and zofran and [...] any provider. Please review and advise. Edwina Dollllow DAVID Edwina [place] LPN 04/17/2020 10:28 AM Signed Pt calls back to check on status of message. Pt report s she is still bloated and stomach feels hard. Pt reports every time she eats she t hrows up. Edwinajuliette Taylor RN 04/17/2020 3:23 PM Signed Pt called, [...] (METRONIDAZOLE HCL) 03/11/2010 12 - Shortness of [place] th IBUPROFEN 06/18/2016 8 - GI Upset [...] SANDERS MA on 04/17/20 cnpn on 2020-03-29 [facility] ([facility]) Normal 03-29-2020 [facility] SALLY VARGAS ([id number]) 1980 [facility] Date Time Provider Department ([id number]) 03/29/20 MARCELINO MEJIA [facility] During your visit today, we recorded the following informati on about you: Melanie Swenson OUTSIDE MACHINIST HELPER 03/29/2020 10:06 AM Signed Patient calling crying constantly, so congested from a ll the crying, can not get appt with [facility] will not take her insurance. [facility] will not take any new patients due t o COVID issue. Patient said she just can not take it any longer , last night had emesis twice for no reason. Patient friend called robyn patient refused to go to ER, had tele visit with ER. Patient taking ES Tylenol 3 tablets ever y 4 hours not helping, can not take ibuprofen or ASA. Please advise ISABEL ARIAS PA-C 03/29/2020 11:15 AM Signed 1. Can we confirm that [facility] at [facility] doesn't take her insurance. If they don't take her insurance then we ca n see if can get her in with Dr. Church since he is back in [facility] now. 2. Find out how long [...] Signed Patient returned call; crying. Message from [employer] ider given. Patient says they don't do anything for her in ER and she won't go; states she has not taken Tylenol since Thursday and it's out of her system. Attempt to explain to patient the need for ER and that we will not be able to get he r into neuro same day, especially since she does not have transportation. Asked sameer noni what she wants us to do and she said to ask for prescription for musc le relaxer or ibuprofen (she said, in below message she can't take ibuprof en). TC to [facility] and had to leave message for them to return call regarding if they accept patient's insurance. Instructed the m to give patient's name when they return the call so we can document. Lorenzo Vu 03/29/2020 12:49 PM Signed Giulia / [facility] returned call stating the y do not take [facility]; provider is not credentialed with them yet. [...] muscle relaxer for her migraines. Pharmacy is [facility]. Please review and advise. LUCIUS Solis MD 03/29/2020 4:14 PM Signed Let [...] on 03/29/20 cnpn on 2020-03-28 CNPN Telephone (RAMA) Normal 03-28-2020 [facility] SALLY VARGAS ([id number]) 1980 [facility] Date Time Provider Department ([id number]) 03/28/20 [facility] During your visit [...] on 2020-03 OBSOLETE Refill (FAMPWS) Normal 03-27-2020 [facility] SALLY VARGAS ([id number]) 1980 [facility] Time Provider Department ([id number]) 03/27/20 MARCELINO MEJIAWS During your visit today, we recorded the [...] pharmacy. No need to notify patient. Valente Dileep Hutchinson Last ov: 03/2020 Last refill: 01/2020 No [...] Encounter Status:Closed by ISABEL WARE on 03/27/20 cnpn on 2020-03-27 CNPN Telephone (FAMWS) Normal 03-27-2020 [facility] SALLY VARGAS ([id number]) 1980 [facility] Date Time Provider Department ([id number]) 03/27/20 MARCELINO MEJIA [facility] During your visit today, we recorded the following informati on about you: Yvette Taylor RN 03/27/2020 10:59 AM Signed Pt called, verified by name and birthdate. Pt states s he went to [facility] ER last night for a migraine and had a CT scan. Pt wants PCP to review ER records. Pt wants referral to neurology. Order pended. When signed pleas e fax to [facility] at [facility] per pt request Yvette Murphy Ma 03/27/2020 12:20 PM Signed ER reports on PCP's desk to review. Jessica Zhou, RN, RN 03/27/2020 1:37 PM Signed Pt calls, asking what the diagnosis was on the ER note. Pt states she was told air bubble, tumor States Imitrex is not working. Has already taken 2 today. Wa iting on [facility] to call her back Pt asking [...] referral placed and can be faxed to [facility]. Let patient know th e CT [...] to. See needs to contact her care management specialist to get the help see paulette dick as instructed on 03/22/2020, otherwise our hands are tied. Jessica Murphy Ma 03/27/2020 2:29 PM Signed Pt notified and voiced understanding. Referral and Dem o faxed to [facility]. Jessica Murphy Ma Allergies As of Date: 03/27/2020 Noted Allergy Reaction PENICILLINS 12/07/2009 2 - Rash ASA (SALICYLATES) 01/27/2011 14 - Other: See Comments Comments: ulcers CONTRAST DYE (IODINE) 05/17/2008 12 - Shortness of Breath FLAGYL (METRONIDAZOLE HCL) 03/11/2010 12 - Shortness of [place] th IBUPROFEN 06/18/2016 8 - GI Upset PREDNISONE 06/18/2016 14 - Other: See Comments Comments: makes agitated and mean Date Reviewed: 02/23/2020 Reviewed by: Marcelino Mejia - Fully Assessed Reason for Visit: Patient Update [1234] Primary Visit Diagnosis:Migraine without aura an d without status migrainosus, not intractable [G43.009] Order(s):CONSULT TO NEUROLOGY [9009] Order #: [id number]: 1 FUTURE Prescriptions as of 03/27/2020 Sig: [...] 03/27/20 progress on 2020-03 PROGRESS HNO ID: [id number] Normal 03-22-2020 [facility] Author: Isabel (Maya) Hugo Lara ([id number]) Service: ? Author Type: Physician Bus Analyst Type: Progress Notes Filed: 03/22/2020 9:50 AM Note Text: DISTANCE HEALTH VISIT This Team Access Model visit is a phone encounter. It requir ed patient-provider interaction for the medical decision making as documented below. No video was used for evaluation of this patient. Patient consents to visit. Patient location: Abraham Vargas is a 39 year old female seen for headaches a nd pain. Patient states she has had to cancel with pain management 5 different times so now they won't reschedule her. She continues to have migraines/headaches. Only taking topam ax once a day. Couldn't do MRI or US due to rides. States she couldn't go to [facility] for her cardiac testing but continues to have pre syncopal episodes. Has not been able to go see card iologist either. She is specifically asking about going on disability as well . HISTORY REVIEWED (electronic chart updated): - medical history - medications - allergies REVIEW OF SYSTEMS: As noted in HPI PHYSICAL EXAMINATION: [facility] 08/10/2006 Any vital signs collected today were [...] with our r ecommendations and with specialists. contacted and will provider her [facility] recommendations for ride assistance. ISABEL ARIAS PA-C Total appointment time on phone with patient = 11-20 minutes morena on 2020-03-22 CNPN Telephone (FAMPWS) Normal 03-22-2020 [facility] SALLY VARGAS ([id number]) 1980 [facility] Date Time Provider Department ([id number]) 03/22/20 ISABEL ARIAS) [facility] During your visit today, we recorded the following informati on about you: ISABEL ARIAS PA-C 03/22/2020 9:43 AM Signed Please let patient know that this is info I have received from in regards to rides: The last I knew, most of them were back up and running. I do know that [employer] [facility] [employer] has been continuing with their ride assistance and are taking people to their appts. I would sa y they need to check now with insurance to see if able to set up ride. The patient could also see if they can request a care management specialist through their Medicaid Managed Care p maria esther. I have patients that have Medicaid plan and their care managers a re able to assist them setting up services. Having a care management specialist through insu eve is great because they can assist with barriers to healthcare. Jessica Murphy Darryn 03/22/2020 11:02 AM Signed Pt notified. She [...] She states she has a care ma nagelizabeth through medicaid [facility] but she only calls her about once a year. She states she will have to make the MRI and CT appt n ext month when she has rides again. I advised her that she contact [facility] and request more help from her care management specialist. Allergies As of Date: 03/22/2020 Noted [...] Encounter Status:Closed by ISABEL WARE on 03/22/20 cnpn on 2020-03-08 [facility]FAMWS) Normal 03-08-2020 [facility] ABDIFATAHSALLY TORRES ([id number]) 1980 [facility] Date Time Provider Department ([id number]) 03/08/20 MARCELINO MEJIA During your visit today, we recorded the following informati on about you: Janneth Christensencharis HERNANDEZ 03/08/2020 2:58 PM Signed Patient states she has loss of appetite and weight loss. S tates she lost 10 lb. in 5 days. [...] transfer to scheduling and while waiting for viscosity worker which was awhile, pt dropped call. Attempted [...] (METRONIDAZOLE HCL) 03/11/2010 12 - Shortness of [place] th IBUPROFEN 06/18/2016 8 - GI Upset [...] Status:Closed by BRANDEN SANDERS MA on 03/09/20 [facility] 2020-03-[facility] Normal 03-05-2020 [facility] SALLY VARGAS ([id number]) 1980 [facility] Date Time Provider Department ([id number]) 03/05/20 [facility] During your visit today, we recorded the following informati on about you: Melanie Swenson OUTSIDE MACHINIST HELPER 03/05/2020 2:16 PM Signed Patient calling would like viscosity worker to call her back to set up [...] 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 vic stated she is to see Dr. Joseph here in [place] for Pain Management. Verified that we have [facility] and MRI schedul ed here on 03/19. -Marry aXvi Pss Allergies As of Date: 03/05/2020 Noted [...] Mejia - Fully Assessed Reason for Visit: please [...] Encounter Status:Closed by MARRY VARGAS on 03/06/20 CNPN Telephone (FAMPWS) Normal 03-05-2020 [facility] SALLY aMrtinez ([id number]) 1980 [place] Date Time Provider Department ([id number]) 03/05/20 MARCELINO MEJIA During your visit today, we recorded the following informati on about you: Sallie Benitez OUTSIDE MACHINIST HELPER 03/05/2020 1:58 PM Signed Patient is scheduling [...] be given. Prescription for protonix sent. MAYA Delgado Ma 03/05/2020 3:28 PM Signed Contacted patient and she phone cut out. Could not hear chaz knight; instructed patient that if she could hear me to call the office. Sarai Diegoh Debby OUTSIDE MACHINIST HELPER 03/05/2020 3:51 PM Signed Patient returned call [...] when it's a controlled substance .. MAYA Delgado MA, DARRYN 03/06/2020 9:48 AM Signed Patient informed of results, verbalized understanding. March 19 MRI And vas labs. DARRYN Fritz PA-C 03/06/2020 10:21 AM Signed Noted. Isabel Arias PA-C Allergies As of Date: 03/05/2020 Noted Allergy Reaction PENICILLINS 12/07/2009 2 - Rash ASA (SALICYLATES) 01/27/2011 14 - Other: See Comments Comments: ulcers CONTRAST DYE (IODINE) 05/17/2008 12 - Shortness of Breath FLAGYL (METRONIDAZOLE HCL) 03/11/2010 12 - Shortness of [place] th IBUPROFEN 06/18/2016 8 - GI Upset [...] Encounter Status:Closed by ISABEL WARE on 03/06/20 cnpn on 2020-02-28 CNPN Telephone (FAMPWS) Normal 02-28-2020 [facility] SALLY Martinez ([id number]) 1980 [place] Date Time Provider Department ([id number]) 02/28/20 MARCELINO MEJIA During your visit today, we recorded the following informati on about you: Janneth Zhou, RN, RN 02/28/2020 10:41 AM Signed Pt calls for ER F/U appt. States she was at [facility] ER on 02/24 after reportidly passing [...] she needs to complete future studies. Branden Merillat Ma Allergies As of Date: 02/28/2020 Noted Allergy Reaction PENICILLINS 12/07/2009 2 - Rash ASA (SALICYLATES) 01/27/2011 14 - Other: See Comments Comments: ulcers CONTRAST DYE (IODINE) 05/17/2008 12 - Shortness of Breath FLAGYL (METRONIDAZOLE HCL) 03/11/2010 12 - Shortness of [place] th IBUPROFEN 06/18/2016 8 - GI Upset [...] CHEST 1 VIEW ORIGINAL Normal 02-25-2020 [facility] XR CHEST 1 VIEW [facility] ([place] ([id number]) CLINICAL STATEMENT: Chest pain COMPARISON: 04/06/2006 FINDINGS: [...] Troponin I.cardiac <0.020 0.000-0.040 ng/mL Normal 0 [facility] [Mass/Vol] [facility] ([address]) Comment: Result Comment: Troponin I r eference range: 0.00-0.040 ng/mL Negative an d non-diagnostic. >0.040 ng/mL Consistent with cardiac damage, increased clinical risk and possibility of myocardial in farction. Serial measurements, a rise & fall in test results, clinical histo ry, appropriate symptoms and/or ECG changes may help assess possibility of [place]. *Other non-acute coronary sy ndrome conditions such as CHF, myoc arditis, pulmonary emboli, sepsis and cardiac surgery could result in myoc ardial damage and increased troponi n levels. Performed By: #### CBC, ADIF F, ANEU, BMP, GFR #### [address] [address] mg on 2020-02-25 Magnesium [Mass/Vol] 2.0 1.8-2.4 mg/dL Normal 0 [facility] ([place]) (0000 0) Comment: Performed By: #### CBC, ADIF F, ANEU, BMP, GFR #### [address] [address] lip on 2020-02-25 Lipase Level 562 73-393 U/L High 02-25-2020 [facility] ([place]) (23169) Comment: Performed By: #### CBC, ADIF F, ANEU, BMP, GFR #### [address] [address] cmp on 2020-02-25 Albumin [Mass/Vol] 4.1 3.5-5.0 G/dL Normal 02-25-2020 [facility] ([place]) ([address]90) Comment: Performed By: #### CBC, ADIF F, ANEU, BMP, GFR #### [address] [address] Albumin/Globulin [Mass 1.2 1.1-2.5 ratio Normal 020 [facility]) (35571) Comment: Performed By: #### CBC, ADIF F, ANEU, BMP, GFR #### [address] [address] ALP [Catalytic activity/Vol] 98 40-135 U/L Normal 0 02-25-2020 [facility] ([place]) (0000 0) Comment: Performed By: #### CBC, ADIF F, ANEU, BMP, GFR #### [place] [id number] ALT [Catalytic activity/Vol] 30 10-35 U/L Normal 0 02-25-2020 [facility] ([place]) (0000 0) Comment: Performed By: #### CBC, ADIF F, ANEU, BMP, GFR #### [place] [id number] AST [Catalytic activity/Vol] 15 10-40 U/L Normal 0 02-25-2020 [facility] ([place]) (0000 0) Comment: Performed By: #### CBC, ADIF F, ANEU, BMP, GFR #### [address] [address] Bili Total 0.4 0.2-1.0 mg/dL Normal 02-25-2020 [facility]) (48529) Comment: Result Comment: Use of this assay is not recommended for patients undergoing treatment with eltrombopag d ue to the potential for falsely elevated results. Performed By: #### CBC, ADIF F, ANEU, BMP, GFR #### [place] [id number] Calcium [Mass/Vol] 8.9 8.4-10.2 mg/dL Normal 02-25-2020 [facility] ([place]) (0000 0) Comment: Performed By: #### CBC, ADIF F, ANEU, BMP, GFR #### [address] [address] Chloride [Moles/Vol] 104 98-107 mmol/L Normal 0 [facility] ([place]) (0000 0) Comment: Performed By: #### CBC, ADIF F, ANEU, BMP, GFR #### [address] [address] CO2 [Moles/Vol] 28 22-29 mmol/L Normal 02-25-2020 [facility] ([place]) (68208) Comment: Performed By: #### CBC, ADIF F, ANEU, BMP, GFR #### [address] [address] Creatinine [Mass/Vol] 1.01 0.55-1.02 mg/dL Normal 02-25-20 [facility] ([place]) (16037) Comment: Performed By: #### CBC, ADIF F, ANEU, BMP, GFR #### [address] [address] Electrolyte Balance 9.0 mEq/L Normal 02-25-2020 [facility] ([place]) (33793) Comment: Performed By: #### CBC, ADIF F, ANEU, BMP, GFR #### [address] [address] Globulin (S) [Mass/Vol] 3.4 G/dL Normal 2019 [facility] ([place]) (27667) Comment: Performed By: #### CBC, ADIF F, ANEU, BMP, GFR #### [address] [address] Glucose [Mass/Vol] 112 70-105 mg/dL High 02-25-2020 [facility] ([place]) (08934) Comment: Performed By: #### CBC, ADIF F, ANEU, BMP, GFR #### [address] [address] Potassium [Moles/Vol] 3.7 3.5-5.1 mmol/L Normal 02-25-20 [facility] ([place]) (0000 0) Comment: Performed By: #### CBC, ADIF F, ANEU, BMP, GFR #### [address] [address] Protein [Mass/Vol] 7.5 6.4-8.2 G/dL Normal 02-25-2020 [facility] ([place]) (02665) Comment: Performed By: #### CBC, ADIF F, ANEU, BMP, GFR #### [address] [address] Sodium [Moles/Vol] 141 136-145 mmol/L Normal 02-25-2020 [facility] ([place]) (0000 0) Comment: Performed By: #### CBC, ADIF F, ANEU, BMP, GFR #### [place] [id number] Urea nitrogen [Mass/Vol] 21 7-18 mg/dL High 02-24 [facility] ([place]) (29732) Comment: Performed By: #### CBC, ADIF F, ANEU, BMP, GFR #### [place] [id number] Urea nitrogen/Creatinine [Mass 21 7-27 ratio Normal 02-25-2020 [facility]] [facility] ([place]) (01117) Comment: Performed By: #### CBC, ADIF F, ANEU, BMP, GFR #### [address] [address] cbc on 2020-02-25 Erythrocyte distribution 14.9 11.5-14.5 % High 02-24 [facility] width (RBC) [Ratio] ([place]) (16378) Comment: Performed By: #### CBC, ADIF F, ANEU, BMP, GFR #### [address] [address] Hematocrit (Bld) [Volume 35.9 37.0-47.0 % Low 02-24 [facility] fraction] ([place]) (0000 0) Comment: Performed By: #### CBC, ADIF F, ANEU, BMP, GFR #### [place] [id number] Hemoglobin (Bld) 11.8 12.0-16.0 G/dL Low 02-25-2020 [facility] [Mass/Vol] ([place]) (000 00) Comment: Performed By: #### CBC, ADIF F, ANEU, BMP, GFR #### [address] [address] MCH (RBC) [Entitic mass] 29.5 27.0-31.2 pg Normal 02-24 [facility] ([place]) (0000 0) Comment: Performed By: #### CBC, ADIF F, ANEU, BMP, GFR #### [address] [address] MCHC (RBC) [Mass/Vol] 32.9 33.0-37.0 G/dL Low 02-25-20 20 [facility] ([place]) (0000 0) Comment: Performed By: #### CBC, ADIF F, ANEU, BMP, GFR #### [address] [address] MCV (RBC) [Entitic vol] 89.9 80.0-94.0 fL Normal 2019 [facility] ([place]) (0000 0) Comment: Performed By: #### CBC, ADIF F, ANEU, BMP, GFR #### [place] [id number] Platelet mean volume 9.2 7.4-10.4 fL Normal 0 [facility] (Bld) [Entitic vol] ([place]) (50366) Comment: Performed By: #### CBC, ADIF F, ANEU, BMP, GFR #### [address] [address] Platelets (Bld) [#/Vol] 265 130-400 10 3/mcL Normal 2019 [facility] ([place]) (45395) Comment: Performed By: #### CBC, ADIF F, ANEU, BMP, GFR #### [address] [address] RBC (Bld) [#/Vol] 4.00 4.20-5.40 10 6/mcL Low 02-25-2020 [facility] ([place]) (0000 0) Comment: Performed By: #### CBC, ADIF F, ANEU, BMP, GFR #### [address] [address] WBC (Bld) [#/Vol] 9.90 4.60-10.80 10 3/mcL Normal 02-25-2020 [facility] ([place]) (65645) Comment: Performed By: #### CBC, ADIF F, ANEU, BMP, GFR #### [address] [address] .neuabs on Neutrophils (Bld) 6.00 2.85-6.16 10 3/mcL Normal 02-25-2020 [facility] [#/Vol] [facility] ([place]) (90985) Comment: Performed By: #### CBC, ADIF F, ANEU, BMP, GFR #### [address] [address] .gfr on 2020-02-25 GFR Non- 61 ml/min/1.73sqm Normal 02-25-2020 [facility] ([place]) (91368) Comment: Result Comment: GFR Population mean for Afri can Irish, Non- Americans Ages 20-29 = 116 mL/min/1.73 [...] CBC, ADIF F, ANEU, BMP, GFR #### [address] [address] GFR 74 ml/min/1.73sqm Normal 02-12 [facility] ([place]) (0000 0) Comment: Result Comment: GFR Population mean for Afri can Irish, Non- Americans Ages 20-29 = 116 mL/min/1.73 [...] CBC, ADIF F, ANEU, BMP, GFR #### [address] [address] .auto diff on 02-24 Ammonia (P) [Mass/Vol] 0.60 0.15-1.00 10 3/mcL Normal 02-24- 020 [facility] ([place]) (82641) Comment: Performed By: #### CBC, ADIF F, ANEU, BMP, GFR #### [address] [address] Basophils (Bld) 0.00 0.00-0.19 10 3/mcL Normal 02-25-2020 [facility] [#/Vol] [facility] ([place]) (20596) Comment: Performed By: #### CBC, ADIF F, ANEU, BMP, GFR #### [address] [address] Basophils/100 WBC (Bld) 0.2 0.0-2.5 % Normal 2019 [facility] ([place]) (0000 0) Comment: Performed By: #### CBC, ADIF F, ANEU, BMP, GFR #### [address] [address] Eosinophils (Bld) 0.30 0.00-0.40 10 3/[facility] Normal 02-25-2020 [facility] [#/Vol] [facility] ([place]) (80743) Comment: Performed By: #### CBC, ADIF F, ANEU, BMP, GFR #### [address] [address] Eosinophils/100 WBC (Bld) 3.5 0.0-7.0 % Normal 02-12 [facility] ([place]) (0000 0) Comment: Performed By: #### CBC, ADIF F, ANEU, BMP, GFR #### [address] [address] Lymphocytes (Bld) 2.90 0.77-3.85 10 3/mcL Normal 02-25-2020 [facility] [#/Vol] [facility] ([place]) (47060) Comment: Performed By: #### CBC, ADIF F, ANEU, BMP, GFR #### [facility] [address] [place] [address] Lymphocytes/100 WBC (Bld) 28.9 10.0-50.0 % Normal 02-12 [facility] ([place]) (39127) Comment: Performed By: #### CBC, ADIF F, ANEU, BMP, GFR #### [place] [address]90 [address] [place] [address] Monocytes/100 WBC (Bld) 6.3 1.7-13.0 % Normal 2019 [facility] ([place]) (0000 0) Comment: Performed By: #### CBC, ADIF F, ANEU, BMP, GFR #### [place] 273590 [address] [place] [address] Neutrophils/100 WBC (Bld) 61.1 37.0-80.0 % Normal 02-12 [facility] ([place]) (00856) Comment: Performed By: #### CBC, ADIF F, ANEU, BMP, GFR #### [place] [address]3590 [address] [place] [address] progress on 2020-02 PROGRESS HNO ID: [id number] Normal 02-23-2020 [facility] Author: Marcelino Mejia [place] ([id number]) Service: ? Author Type: Physician Type: Progress Notes Filed: 02/23/2020 12:21 PM Note Text: This Team Access Model visit is a phone encounter. It requir ed patient-provider interaction for the medical decision making as documented below. The patient is identified by name and birthday. Patient loca tion: [place] The patient is aware that I am [...] Mouth/Lip Problem: x 1 month HPI Sally Vargas is a 39 year old female who [...] Phone time: 5 min cnpn on 2020-02-20 [facility]) Normal 02-20-2020 [facility] SALLY VARGAS ([id number]) 1980 [facility] Date Time Provider Department ([id number]) 02/20/20 MARCELINO MEJIA During your visit today, we recorded the following informati on about you: Lexy Tapia RN 02/20/2020 8:40 AM Signed fyi- Patient calls to report to PCP that she was back in [facility] ER over weekend due to pain from Pancreatitis. Her level was 800, so they s ent me home. States she received Oxycodone and report s that it is not doing much to relieve her pain and wanted PCP aware that she was in ER again. Patient did not have phone number of [facility] to schedule f ollow up. This [...] Encounter Status:Closed by MARCELINO MEJIA on 02/20/20 [facility] Normal 02-20-2020 [place] S[facility] ([id number]) 1980 [facility] [place] Date Time Provider Department ([id number]) 02/20/20 MARCELINO MEJIAPWS During your visit today, we recorded the following informati on about you: Melanie Swenson DAVID 02/20/2020 2:25 PM Signed Patient calling wants note sent to PCP, she is currently i n [facility] ER. Patient said she has been sitting there for about 20 minutes now. Marcelino Mejia MD 02/20/2020 2:35 PM Signed Noted. Allergies As of Date: 02/20/2020 Noted Allergy Reaction PENICILLINS 12/07/2009 2 - Rash ASA (SALICYLATES) 01/27/2011 14 - Other: See Comments Comments: ulcers CONTRAST DYE (IODINE) 05/17/2008 12 - Shortness of Breath FLAGYL (METRONIDAZOLE HCL) 03/11/2010 12 - Shortness of [place] th IBUPROFEN 06/18/2016 8 - GI Upset [...] Encounter Status:Closed by MARCELINO MEJIA on 02/20/20 [facility] Telephone (FAMPWS) Normal 02-20-2020 [facility] SALLY VARGAS ([id number]) 1980 [facility] Date Time Provider Department ([id number]) 02/20/20 MARCELINO MEJIA During your visit today, we recorded the following informati on about you: Christopher Carcamo RN 02/20/2020 9:48 AM Signed Patient phoned crying and distraught, stating [facility], can not get her in until March. States she cannot take this pain anymore, her insurance will not cover anyone in [facility] When she was in the hospital morphine [...] pain right now, she is upset because [facility] I cannot see her until March. Asking if there is anything pcp can do to get her in sooner? Ple ase phone patient with reply. Marcelino Mejia MD 02/20/2020 10:15 AM Signed Let patient know the only op tions ar for her to go to [facility] ER to see if will be admitted and get Gastro eval there where they have it or I can put in a general referral for the system but that could be anywhere in the system including main campus. Edwina Tatum LPN 02/20/2020 10:43 AM Signed Pt calls back and is very upset because she said she has no one to take her to [place]. She said when she goes to [facility] the y just drug her up [...] reports she can't take the pain until th en. Pt is asking if there is something stronger to help with her pain. Edwina Oliver LPN 02/20/2020 11:48 AM Signed Patient calling very upset. Crying. She cannot get transport ation to [facility]. Insurance does not cover [facility] and do es not want to go back to [place] because they will just send h er home with meds and dope me up for 3-4 days. Johnathon SOTELO cannot get her an appointment until March . Will route to clerical gastro for schedu ling within [facility] - possibly [facility] [place] [facility]. Marcelino Mejia MD 02/20/2020 12:34 PM Signed noted Augustina Vera, [employer].MANUELITO 02/20/2020 12:40 PM Signed I'd suggest that she go to [facility] today. it w ould not be good patient care to have her seen by me at this point. Augustina Vera RN A PRN.MANUELITO Zhou, RN, RN 02/20/2020 12:43 PM Signed Pt calls back, upset and crying stating her pain is so bad she doesn't know what else to do. States gastro here does not take her insurance and she has no way of getting to [facility]. Pt states she does not th ink they take her insurance either. Spoke with PCP who suggested [facility]. Relayed message to pt, pt started yelling stating she has no transp ortation. States if she calls ambulance they will only take her within [facility]. Sta los her boyfriend can't [...] illness. Asking letter to be faxed to [phone]. Marcelino Mejia MD 02/20/2020 2:38 PM Signed Let patient know ER report from 02/18/2020 was reviewed and th e ER Physician wanted to keep but she preferred to go home and see if she c ould manage it there. Lorenzo Thomascecilia 02/20/2020 4:06 PM Signed Patient returned call, stating she went to [facility] ER today an d they discharged her because her level is less than 800. Reques ting something for pain, that Percocet helped some in past. No transportation to go anywhe re but [place] (?social service liaison to help with transportat ion). Does not [...] doctor. In regards to her letter for [place] [employer] what I can write ss that your [...] pain and can't see the specialist [facility] March. Advised pt per Dr's note that he can write that same letter for Child Support but that is what is going to be written. Edwina Mejia MD 02/20/2020 5:21 PM Signed Letter ready to be faxed to [phone]. Branden Sanders Ma 02/21/2020 8:24 AM Signed Faxed letter Branden Sanders Ma Allergies As of Date: 02/20/2020 Noted Allergy Reaction PENICILLINS 12/07/2009 2 - Rash ASA (SALICYLATES) 01/27/2011 14 - Other: See Comments Comments: ulcers CONTRAST DYE (IODINE) 05/17/2008 12 - Shortness of Breath FLAGYL (METRONIDAZOLE HCL) 03/11/2010 12 - Shortness of [place] th IBUPROFEN 06/18/2016 8 - GI Upset [...] Status:Closed by BRANDEN SANDERS MA on 02/21/20 cnpn on 2020-02-16 [facility] Telephone (UCWSTR) Normal 02-16-2020 [facility] SALLY VARGAS ([id number]) 1980 [facility] Date Time Provider Department ([id number]) 02/16/20 JESSICA JESUS) [facility] During your visit today, we [...] (METRONIDAZOLE HCL) 03/11/2010 12 - Shortness of [place] th IBUPROFEN 06/18/2016 8 - GI Upset [...] on 02/16/20 [facility] Telephone (FAMPWS) Normal 02-16-2020 [facility] SALLY VARGAS ([id number]) 1980 [facility] Date Time Provider Department ([id number]) 02/16/20 ISABEL ARIAS) [facility] During your visit today, we [...] 02/16/20 progress on 2020-02 PROGRESS HNO ID: [id number] Normal 02-15-2020 [facility] Author: Marcelino Mejia [place] ([id number]) Service: ? Author Type: Physician Type: Progress [...] Provider Documentation: In follow-up of hospitalization, Sally Vargas is a 39 yea r old female with the chief complaint of pancreatitis. I have reviewed the patient?s last hospital course including diagnostic testing performed during this hospitalization, their dischar ge medications, and my assessment and plan with the patient and any family members present at today?s visit. Patient was sen in [facility] ER on 02/01/2020 with C/O epigastric [...] phenergan yesterday and did help the nausea. Al not needed any of the percocet since she has been home. No fevers or ch ills. She did vomit once the evening of 02/14/2020. No chest pain or benigno rtness of breath since being home. Patient was seen in the express care yesterday for mouth sor es and [...] nosis) - CONSULT TO GASTROENTEROLOGY: [facility] in [place] - Cont prn phenergan. 2. Tongue ulcer [...] 02-15-2020 [facility] activity/Vol] [place] and ([id number]) Comment: Performed By: #### LIPA, CMP , CBCDIF, AMYL #### [facility] [address] [place], [place] [address] comp metabolic panel on 2020-02-15 Albumin [Mass/Vol] 4.6 3.9-4.9 g/dL Normal 02-15-2020 [facility] (79198) Comment: Performed By: #### LIPA, CMP , CBCDIF, AMYL #### [facility] [address] [place], [place] [address] ALP [Catalytic activity/Vol] 90 34-123 U/L Normal 0 02-15-2020 [facility] (51362) Comment: Performed By: #### LIPA, CMP , CBCDIF, AMYL #### [facility] [address] [place], [place] [address] ALT [Catalytic activity/Vol] 6 7-38 U/L Low 0 02-15-2020 [facility] (76787) Comment: Performed By: #### LIPA, CMP , CBCDIF, AMYL #### [place] [id number] Anion gap [Moles/Vol] 13 9-18 mmol/L Normal 02-15-20 20 [facility] (08907) Comment: Performed By: #### LIPA, CMP , CBCDIF, AMYL #### [address] [address] AST [Catalytic activity/Vol] 20 13-35 U/L Normal 0 02-15-2020 [facility] (69846) Comment: Performed By: #### LIPA, CMP , CBCDIF, AMYL #### [address] [address] Bilirubin [Mass/Vol] 0.2 0.2-1.3 mg/dL Normal 0 [facility] (11262) Comment: Performed By: #### LIPA, CMP , CBCDIF, AMYL #### [address] [address] Calcium [Mass/Vol] 10.2 8.5-10.2 mg/dL Normal 02-15-2020 [facility] (96763) Comment: Performed By: #### LIPA, CMP , CBCDIF, AMYL #### [address] [address] Chloride [Moles/Vol] 100 97-105 mmol/L Normal 0 [facility] (96738) Comment: Performed By: #### LIPA, CMP , CBCDIF, AMYL #### [facility] [address] [place], [place] [address] CO2 [Moles/Vol] 26 22-30 mmol/L Normal 02-15-2020 [facility] (20427) Comment: Performed By: #### LIPA, CMP , CBCDIF, AMYL #### [facility] [address] [place], [place] [address] Creatinine [Mass/Vol] 0.92 0.58-0.96 mg/dL Normal 02-15-20 20 [facility] (43774) Comment: Performed By: #### LIPA, CMP , CBCDIF, AMYL #### [facility] [address] [place] [address] eGFR- Amer. >60 Normal 02-15-2020 [facility] (36280) Comment: Performed By: #### LIPA, CMP , CBCDIF, AMYL #### [facility] [address] [place] [address] GFR/1.73 sq M predicted >60 mL/min/{1.73_m2} Normal 02-15-2020 [facility] among non-blacks [facility] [place] ([address]62) (S/P/Bld) [Vol rate/Area] Comment: Result Comment: eGFR [...] accurately reflect actual GFR. Performed By: #### LIPA, CMP , CBCDIF, AMYL #### [facility] [address] [place] [id number] Glucose [Mass/Vol] 89 74-99 mg/dL Normal 02-15-2020 [facility] (55163) Comment: Result Comment: The [place] Diabetes Association (ADA) provides guidance for cutoff [...] for diagnosis of diabetes. Reference: Standards of [facility] Care in Diabetes 2016, [place] Diabetes Association. Diabetes Care. 2016.39(Suppl 1). Performed By: #### LIPA, CMP , CBCDIF, AMYL #### [facility] [address] [place], [place] [address] Potassium [Moles/Vol] 3.7 3.7-5.1 mmol/L Normal 02-15-20 [facility] (88449) Comment: Performed By: #### LIPA, CMP , CBCDIF, AMYL #### [facility] [address] [place], [place] [address] Protein [Mass/Vol] 7.8 6.3-8.0 g/dL Normal 02-15-2020 [facility] (17305) Comment: Performed By: #### LIPA, CMP , CBCDIF, AMYL #### [facility] [address] [place], [place] [address] Sodium [Moles/Vol] 139 136-144 mmol/L Normal 02-15-2020 [facility] (71168) Comment: Performed By: #### LIPA, CMP , CBCDIF, AMYL #### [facility] [address] [place], [place] [address] Urea nitrogen [Mass/Vol] 9 7-21 mg/dL Normal 02-14 [facility] (32998) Comment: Performed By: #### LIPA, CMP , CBCDIF, AMYL #### [facility] [address], [place] [address] cnov on 2020-02-15 [facility] Office Visit (FAMPWS) Normal 02-15-[address] [place] [address] Debra SALLY VARGAS ([id number]) 1980 [facility] Date Time Provider Department ([id number]) 02/15/20 2:20 PM [facility] your visit today, we recorded the following informati on about you: Temperature Pulse Respiration Blood pressure 98.9 degrees 65/minute 13/minute 118/88 Weight 83.5 kg Marcelino Mejia MD 02/15/2020 6:23 PM Signed Transitional Care Management Progress Note The patients TCM visit was performed within the 7 days of juve skinner TCM Eligibility Documentation The following information was gathered during the initial [place] Outreach Encounter. Date of Outreach: 02/07/2020 Outreach [...] Provider Documentation: In follow-up of hospitalization, Sally Vargas is a 39 year old female with the chief complaint of pancreatitis. I have reviewed the patient? s last hospital course including diagnostic testing performed during this hospitalization, their discharge medic ations, and my assessment and plan with the patient and any family members present at today?s visit. Patient was sen in [facility] ER on 02/01/2020 with C/O epigastric pain that radiated towards her back with some nausea. W/u was positive for acut e pancreatitis with initial Lipase of 840 and maxed at 4682 on 02/03/2020. Patient is not a heavy drinker and CT of abdomen was unremarkable. Patient was discharged on 02/05/2020 and at that time her lipase was 584. P smitaient was doing ok with some persistent discomfort [...] phenergan yesterday and did help the nausea. Al not needed any of the percocet since she has been home. No fevers or chil ls. She did vomit once the evening of 02/14/2020. No chest p ain or shortness of breath since being home. Patient was seen in the express care yesterday f or mouth sores and [...] diagnosis) - CONSULT TO GASTROENTEROLOGY: [facility] in [place] - Cont prn phenergan. 2. Tongue ulcer [...] for Visit: Transition Of Care [4074] Cmt: [facility] pancreatitis Reason For Visit History Recorded Primary Visit Diagnosis:Acute pancreatitis without infection or necrosis, unspecified pancreatitis type [K85.90] Other Visit Diagnoses:Tongue ulcer [K14.0] Poor dentition [K08.9] Thrush [B37.0] Order(s):CONSULT TO GASTROENTEROLOGY [9875] Order #: 1 [id number]: 1 FUTURE triamcinolone (KENALOG IN ORABASE) 0.1 % pasteApply to affec arnei areas 2-3 times a day.Disp: 15 gRfl: [...] Abs Baso 0.07 <0.11 k/uL Normal 02-15-2020 [facility] (56226) Comment: Performed By: #### LIPA, CMP , CBCDIF, AMYL ####[place] [address] [address] [place] [phone] Abs Prentiss 0.53 <0.87 k/uL Normal 02-15-2020 [facility] (11883) Comment: Performed By: #### LIPA, CMP , CBCDIF, AMYL ####[facility] [place] [phone] Abs Neut 6.05 1.45-7.50 k/uL Normal 02-15-2020 [facility] (10342) Comment: Performed By: #### LIPA, CMP , CBCDIF, AMYL ####[facility] [place] [phone] Absolute nRBC <0.01 <0.01 Normal 02-15-2020 [facility] (48920) Comment: Performed By: #### LIPA, CMP , CBCDIF, AMYL ####[facility] [place] [phone] Basophils/100 WBC (Bld) 0.7 % Normal 2019 [facility] (83925) Comment: Performed By: #### LIPA, CMP , CBCDIF, AMYL ####[facility] [place] [phone] DTYPE Auto Diff Normal 02-15-2020 [facility] (74488) Comment: Performed By: #### LIPA, CMP , CBCDIF, AMYL ####[facility] [address] [place] [phone] Eosinophils (Bld) [#/Vol] 0.38 <0.46 k/uL Normal - [facility] (35369) Comment: Performed By: #### LIPA, CMP , CBCDIF, AMYL ####[facility] [address] [place] [phone] Eosinophils/100 WBC (Bld) 3.9 % Normal [facility] (46610) Comment: Performed By: #### LIPA, CMP , CBCDIF, AMYL ####[facility] [place] [phone] Erythrocyte distribution 14.7 11.5-15.0 % Normal 02-14 [facility] width (RBC) [Ratio] [place] (96942) Comment: Performed By: #### LIPA, CMP , CBCDIF, AMYL ####[facility] [address] [place] [phone] Hematocrit (Bld) [Volume 40.4 36.0-46.0 % Normal 02-14 [facility] fraction] [place] (71208) Comment: Performed By: #### LIPA, CMP , CBCDIF, AMYL ####[facility] [address] [place] [phone] Hemoglobin (Bld) 12.0 11.5-15.5 g/dL Normal 02-15-2020 [facility] [Mass/Vol] [place] (76492) Comment: Performed By: #### LIPA, CMP , CBCDIF, AMYL ####[facility] [address] [place] [phone] Lymphocytes (Bld) [#/Vol] 2.77 1.00-4.00 k/uL Normal -0 [facility] (91033) Comment: Performed By: #### LIPA, CMP , CBCDIF, AMYL ####[facility] [place], [place] [phone] Lymphocytes/100 WBC (Bld) 28.3 % Normal [facility] (76469) Comment: Performed By: #### LIPA, CMP , CBCDIF, AMYL ####[facility] [place] [phone] MCH (RBC) [Entitic mass] 28.6 26.0-34.0 pG Normal 02-14 [facility] (99614) Comment: Performed By: #### LIPA, CMP , CBCDIF, AMYL ####[place] [address] [place], [place] [phone] MCHC (RBC) [Mass/Vol] 29.7 30.5-36.0 g/dL Low 02-15-20 [facility] (34184) Comment: Performed By: #### LIPA, CMP , CBCDIF, AMYL ####[facility] [place], [place] [phone] MCV (RBC) [Entitic vol] 96.4 80.0-100.0 fL Normal 02-14 [facility] (87877) Comment: Performed By: #### LIPA, CMP , CBCDIF, AMYL ####[facility] [place], [place] [phone] Monocytes/100 WBC (Bld) 5.4 % Normal 2019 [facility] (27806) Comment: Performed By: #### LIPA, CMP , CBCDIF, AMYL ####[facility] [place], [place] [phone] Neutrophils/100 WBC (Bld) 61.7 % Normal [facility] (97939) Comment: Performed By: #### LIPA, CMP , CBCDIF, AMYL ####[place] [address] [place], [place] [phone] NRBCs 0.0 0 /100 WBC Normal 02-15-2020 [facility] (66045) Comment: Performed By: #### LIPA, CMP , CBCDIF, AMYL ####[place] [address] [place] [phone] Platelet mean volume 10.6 9.0-12.7 fL Normal 0 [facility] (Bld) [Entitic vol] [place] (31750) Comment: Performed By: #### LIPA, CMP , CBCDIF, AMYL ####[place] [address] [address] [place] [phone] Platelets (Bld) [#/Vol] 435 150-400 k/uL High 2019 [facility] (41382) Comment: Performed By: #### LIPA, CMP , CBCDIF, AMYL ####[place] [address] [place] [phone] RBC (Bld) [#/Vol] 4.19 3.90-5.20 m/uL Normal 02-15-2020 [facility] (88183) Comment: Performed By: #### LIPA, CMP , CBCDIF, AMYL ####[place] [address] [place] [phone] WBC (Bld) [#/Vol] 9.80 3.70-11.00 k/uL Normal 02-15-2020 [facility] (33356) Comment: Performed By: #### LIPA, CMP , CBCDIF, AMYL ####[place] [address] [place] [phone] amylase on Amylase [Catalytic 52 30-104 U/L Normal 02-15-2020 [facility] activity/Vol] [place] and (82200) Comment: Performed By: #### LIPA, CMP , CBCDIF, AMYL #### [facility] Laboratorie s [address] [place], [place] [address] progress on 2020-02 PROGRESS HNO ID: [id number] Normal 02-14-2020 [facility] Author: Jessica Coppola) Fabi Lara ([id number]) Service: ? Author Type: Physician Bus Analyst Type: Progress Notes Filed: 02/14/2020 1:14 PM Note Text: This note was created using NoteWriter. Subjective Sally Vargas is a 39 year old female. HPI [...] Benign liver cyst 05/24/2010 CT scan at [facility] 11/2009 and 04/2010 showe 4 mm increase in size . No pain. No elevated LFTs on 03/11/2010. - Calculus of kidney 05/17/[address] Nicolas: Hospitalized age 20, and again later -- no procedures so far ([facility], [facility], [facility]) - Dysmenorrhea - Impaired fasting glucose [...] 5:34am 09-02-2019 [facility] (89194) - ondansetron orally disintegrating (ZOFRAN ODT) 4 [...] Approx. 3 cigarettes daily-1 pack every w assiniboine and gros ventre tribes Substance Use Topics - Alcohol use: Yes [...] need to see ENT or oral surgery. [facility] Holm-C fungus screen on 03-03-02 Fungus Screen Sp. Request/Comment: - Swab Critical ly 02-14-2020 [facility] abnormal [place] Culture Result - Few Neris glabrata --> ABNORMAL ALERT (82519) Comment: Performed By: #### FUNGSC ## ##[facility] [address] [place], [place] [phone] cnov on 2020-02-14 CNOV Office Visit (UCWSTR) Normal 02-14-20 [place] [facility] SALLY VARGAS ([id number]) 1980 F [place] Date Time Provider Department ([id number]) 02/14/20 12:45 PM JESSICA JESUS ([facility]) [facility] During your visit today, we recorded the following informati on about you: Temperature Pulse Respiration Blood pressure 99.1 degrees 86/minute 18/minute 124/82 Weight 83.7 kg Jessica Jesus PA-C 02/14/2020 1:14 PM Signed This note was created using NoteWriter. Subjective Sally Vargas is a 39 year old female. HPI Patient presents with a sore on her tongue over the past thu. She was on clindamycin for an extended period of time and had multiple bouts of pancreatitis recently. She states the uth sore started hurting more today so [...] Benign liver cyst 05/24/2010 CT scan at [facility] 11/2009 and 04/2010 showe 4 mm increase in size . No pain. No elevated LFTs on 03/11/2010. - Calculus of kidney 05/17/[address] Nicolas: Hospitalized age 20, a nd again later -- no procedures so far ([facility], [place], [facility]) - Dysmenorrhea - Impaired fasting glucose [...] 150 MG DAILY September 02, 2019 5:34am 20-2 019 [facility] (14274) - ondansetron orally disintegrating (ZOFRAN ODT) 4 [...] Approx. 3 cigarettes daily-1 pack every w assiniboine and gros ventre tribes Substance Use Topics - Alcohol use: Yes [...] (METRONIDAZOLE HCL) 03/11/2010 12 - Shortness of [place] th IBUPROFEN 06/18/2016 8 - GI Upset [...] mLRfl: 0 FUNGAL SCREEN [SQFUNGSC] Order #: [id number] Prescriptions as of 02/14/2020 Sig: PROMETHAZINE 25 [...] JESUS PA-C on 02/14/20 [facility]npn [facility] 2020[facility]02[facility] Normal 02-13-2020 [place] [facility] SALLY VARGAS ([id number]) 1980 [facility] Date Time Provider Department ([id number]) 02/13/20 [facility] During your visit today, we recorded the following informati on about you: Christopher Carcamo RN 02/13/2020 10:27 AM Signed Patient reports she was discharged from [facility] yesterday, after a 4 day stay, for pancreatitis. Scheduled f/u visit with CHAZ, for tomorro w. Patient asking note be sent to provider also. Reports she still has a sore on he r tongue, [facility] doctor was not concerned about it. She is using warm s alt water gargles, and hydrogen peroxide rinses. States she can't go to dentist, an d asking if [facility] wants to prescribe an AB for it? [...] that had her concerned last week? MAYA Delgado PA-C 02/13/2020 10:42 AM Signed Please attempt [...] seen in person given her concerns. MAYA Delgado MA, MA 02/13/2020 11:41 AM Signed Pt scheduled. Roxanne Patel MA Allergies As of Date: 02/13/2020 Noted Allergy Reaction ASA (SALICYLATES) 01/27/2011 14 - Other: See Comments Comments: ulcers CONTRAST DYE (IODINE) 05/17/2008 12 - Shortness of Breath FLAGYL (METRONIDAZOLE HCL) 03/11/2010 12 - Shortness of [place] th IBUPROFEN 06/18/2016 8 - GI Upset PENICILLINS 12/07/2009 2 - Rash PREDNISONE 06/18/2016 14 - Other: See Comments Comments: makes agitated and mean Date Reviewed: 01/02/2020 Reviewed by: Ashley Lehman Ma - Fully Assessed Reason for Visit: [facility] visit [Other] Prescriptions as of 02/13/2020 [...] Encounter Status:Closed by ROXANNE PATEL on 02/13/20 cnpn on 2020-02-09 CNPN Telephone (FAMWS) Normal 02-09-2020 [place] [facility] SALLY VARGAS ([id number]) 1980 [facility] Date Time Provider Department ([id number]) 02/09/20 [facility] During your visit today, we recorded the following informati on about you: Mildred Tolbert RN 02/09/2020 1:14 PM Signed Patient calling to say she i s having abdominal pain 5/10 and has been nauseated w/vomiting since discharge from hospital . She states she can't even keep water down. She is taking Zofran and it's not helping. She does no t feel dehydrated. She states she plans to go to ER if these sympto ms continue. Mildred Tolbert RN ISABEL ARIAS PA-C 02/09/2020 2:04 PM Signed When [...] she plan on coming to lab. MAYA Delgado MA, MA 02/09/2020 2:07 PM Signed Unable to reach patient . No answer and Vm is full. DARRYN Fritz, RN, RN 02/09/2020 2:43 PM Signed Pt calls back, stating she is currently at [facility] ER. States she had labs done [...] (METRONIDAZOLE HCL) 03/11/2010 12 - Shortness of [place] th IBUPROFEN 06/18/2016 8 - GI Upset [...] 02/09/20 progress on 2020-01 PROGRESS HNO ID: [id number] Normal 02-08-2020 [facility] Author: Isabel Romero) Hugo Lara ([id number]) Service: ? Author Type: Physician Bus Analyst Type: Progress Notes Filed: 02/08/2020 10:57 AM Note Text: DISTANCE HEALTH VISIT This Team Access Model visit is a phone encounter. It requir ed patient-provider interaction for the medical decision making as documented below. No video was used for evaluation of this patient. Patient consents to visit. Patient location: [place] Sally Vargas is a 39 year old female seen [...] per patient report who presented to the [facility] ED on 02/01/20 with i ntermittent [...] seroquel and she has talked with [facility] for what to do next. She has been taking oxycodone every 4 hours but has not need any yet today. Does mention a sore on her forearm. States getting worse. Red and hardened. 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 States she noticed it first in hospital. She is unable to send picture or have video conference. Is w illing to come to . HISTORY REVIEWED (electronic chart updated): - medical history - medications - allergies REVIEW OF SYSTEMS: As noted in HPI PHYSICAL EXAMINATION: [facility] 08/10/2006 No vitals taken. Deferred [...] to have arm and mouth evaluated to d etermine if developing cellulitis since I cannot evaluate via telephone. ISABEL ARIAS PA-C Total appointment time on phone with patient = 30+ minutes progress on 2020-01 PROGRESS HNO ID: [id number] Normal 02-07-2020 [facility] Author: Yvette Taylor RN [place] ([id number]) Service: ? Author Type: ? Type: Progress [...] might be hidden SUMMARY: -Pt discharged from [facility] on 02-05-2020. -Follow up appointment on 02-08-2020. -Medication review done yes. -Admitted for: Acute pancreatitis CONCERNS: Pt worried about pain control, is using oxycodone as ordered NEW MEDICATIONS: Oxycodone [Oxyir] 10 mg PO Q4H PRN PRN 5 Days #60 tablet PRN Reason: severe pain Transmission Status: Received by BENTLEY LARA RD Pantoprazole Sodium [Protonix] 20 mg PO BID #60 tab Transmission Status: Pending to BENTLEY LARA RD Ondansetron HCl [Zofran] 4 mg PO [...] per patient report who presented to the [facility] ED on 02/01/20 with i ntermittent [...] CNPTOUTREACH Patient Outreach (FAMPWS) Normal 0 02-07-2020 [place] [facility] SALLY VARGAS ([id number]) 1980 [facility] Date Time Provider Department ([id number]) 02/07/20 MARCELINO MEJIA FAMPWS During your visit today, we recorded the following informati on about you: Yvette Taylor RN 02/07/2020 11:10 AM Signed TRANSITION CARE MANAGEMENT (TCM) INITIAL CONTACT Provider Action/FYI: Apt scheduled for 02-08-2020 Initial contact with patient post discharge, spoke to pt. Patient identified by name and . TRANSITION CARE MANAGEMENT: Date of Outreach: 02/07/2020 Outreach Attempt 1: Contact Made Date of Discharge 02/05/2020 Some recent data might be hidden SUMMARY: -Pt discharged from [facility] on 02-05-2020. -Follow up appointment on 02-08-2020. -Medication review done yes. -Admitted for: Acute pancreatitis CONCERNS: Pt worried about pain control, is using oxycodone as ordered NEW MEDICATIONS: Oxycodone [Oxyir] 10 mg PO Q4H PRN PRN 5 Days #60 tablet PRN Reason: severe pain Transmission Status: Received by BENTLEY CAVAZOS[address] LUCAS Pantoprazole Sodium [Protonix] 20 mg PO BID #60 tab Transmission Status: Pending to BENTLEY NEVES-[address] Ondansetron HCl [Zofran] 4 mg PO Q8H PRN PRN #20 tab MEDS HELD/DISCONTINUED: Seroquel stopped, pt relates she is following up with lois bourgeois about this BRIEF HOSPITAL COURSE: The patient is a 39 y/o F w/ PMHx: Obesity, [employer] nghia Pain Syndrome, Migraines, Known Lung Nodules, Hx Uteri ne CA, Hx Nephrolithiasis, Tobacco use, Anxiety and Depression with Suspected Bipolar disorder recently starte d on seroquel and sertraline, Recent Dental ev aluation with Infection on clindamycin with planned upcoming removal in 4-6 week s per patient report who presented to the [facility] ED on 02/01/20 with intermittent epigastric [...] 02/07/20 emergency report on 2020-01-28 EMERGENCY REPORT [facility] Normal 01-27 [facility]ital EMERGENCY ROOM REPORT ([id number]) NAME ACCOUNT SEX AGE ADMIT DISCHARGE PT MED. RECORD# NUMBER DATE DATE TYPE SAM, [id number] F 39 01/20/20 01/21/20 3 SALLY [id number] ROOM: ER DATE OF : 1980 DICTATING PHYSICIAN: Ana Rodriguez HISTORY OF PRESENT ILLNESS: This patient is [...] accompanied by headaches with vision changes. She, dasilva marina, denies palpitations, diaphoresis, nausea, vomiting, diarrhea, urinary [...] PHYSICAL EXAMINATION: Physic al examination reveals a myh-ydo-vhnmrcmke female in no acute distress, resting c [...] Patient with Page 1 of 2 SALLY VARGAS Emergency Room Report SALLY VARGAS : 1980 intact gait. HEENT examinati on [...] plan for transfer to an outside hospi natty for further management. Discussed the patient with Dr. Coleman at [facility], who accepted the patient for admission. The patient was transferred to [facility] in stable condition. Dictated By: Ana Rodriguez MD 01/21/20 01:30 JOB #: [id number] Transcribed By: thanh 01/21/20 10:04 Electronically signed by: Jennifer Perez MD 01/28/20 00:29 Page 2 of 2 SALLY VARGAS Emergency Room Report myco on 2020-01-26 Mycoplasma IgG POS Normal 01-26-2020 [facility] ([place]) (48839) Comment: Result Comment: INTERPRETATI ON OF MYCOPLASMA [...] F, ANEU, BMP, GFR #### [place] [address] progress on 2020-01 PROGRESS HNO ID: [id number] Normal 01-25-2020 [facility] Author: Roxanne Patel MA ([id number]) Service: ? Author Type: Development Disability Specialist Type: Progress Notes Filed: 01/25/2020 7:39 AM Note Text: Te made to get setup. Roxanne Patel MA cnpn on 2020-01-25 CNPN Telephone (FAMPWS) Normal 01-25-2020 [place] [facility] SALLY VARGAS ([id number]) 1980 [facility] Date Time Provider Department ([id number]) 01/25/20 ISABEL ARIAS) RAMA During your visit today, we recorded the following informati on about you: Roxanne Patel MA, DARRYN 01/25/2020 7:39 AM Signed Please help patient get setup for MRI. DARRYN Fritzson Ha Norma Pss 01/25/2020 11:05 AM Signed Attempted to reach patient and she does not have a voice m ail set up Trying to schedule an MRI of the Brain Milly Ha Norma Pss 01/25/2020 3:35 PM Signed Spoke with patient [...] Fully Assessed Reason for Visit: MRI Appointment [3579] Prescriptions as of 01/25/2020 Sig: TOPIRAMATE 25 [...] 01/26/20 progress on 2020-01 PROGRESS HNO ID: [id number] Normal 01-24-2020 [facility] Author: Isabel Lara ([id number]) Service: ? Author Type: Physician Bus Analyst Type: Progress Notes Filed: 01/24/2020 4:03 PM Note Text: DISTANCE HEALTH VISIT This Team Access Model visit is a phone encounter. It requir ed patient-provider interaction for the medical decision making as documented below. No video was used for evaluation of this patient. Patient consents to visit. Patient's location: [place] Chief Complaint No chief complaint on file. HPI Sally Vargas is a 39 year old female who [...] patient was to see pain specialist in [facility]. She has missed or cancelled appointments [...] over the weekend. She was transferred to [place] in [place]. Reports n ot available but patient states ECHO and labs were normal. . States she received a phone call from an [place] And was told negative for Covid. But [...] pharmacy. She did receive phone call from assistant infant teacher last week and w ill be set up for heart monitor. She was suppose to have stress testing done at [facility] today and Carotid US done yesterday, [...] pain.. Past medical history, appointments, medications, allergies r eviewed. Previous Medical History PAST MEDICAL HISTORY Diagnosis Date - Allergic rhinitis, cause unspecified 05/17/2008 Spring and summer - Benign liver cyst 05/24/2010 CT scan at [facility] 11/2009 and 04/2010 showe 4 mm increase in size . No pain. No elevated LFTs on 03/11/2010. - Calculus of kidney 05/17/[address] Nicolas: Hospitalized age 20, and again later -- no procedures so far ([facility], [place], [facility]) - Dysmenorrhea - Impaired fasting glucose [...] - TOTAL ABDOM HYSTERECTOMY 08/31/06 Hysterectomy, MICHELINE Family History FAMILY HISTORY Problem Relation Age [...] mg capsule Take 1 capsule by nick four times daily. - sertraline (ZOLOFT) 50 mg tablet TAKE ONE HALF (1/2) TABLE T BY MOUTH EVERY MORNING FOR 6 DAYS, THEN TAKE ONE TABLET EVERY MORNING - quetiapine fumarate (QUETIAPINE ORAL) QUEtiapine Seroquel XR Active 150 MG DAILY September 02, 2019 5:34am 09-02-2019 [facility] (18001) - ondansetron orally disintegrating (ZOFRAN ODT) 4 [...] mg tablet Take 1 tablet by m javon three times daily as needed for Muscle [...] Approx. 3 cigarettes daily-1 pack every w assiniboine and gros ventre tribes Substance Use Topics - Alcohol use: Yes [...] - ICD9: 786.59, ICD10: R07.89 Continue with assistant infant teacher. Will attempt to get records to see [...] minutes covid on 2020-01-24 COVID 19 Result CORE SHAPER See Below CORNEG Normal 01-24-2020 [facility] ([place]) (0000 0) Comment: Result Comment: Negative Negative for COVID19 (SARS C oV2) by PCR. This test was developed and its performance characteristics determined by [facility]'s [facility] [place]. This test has bee n authorized by [...] issued on November 12, 2019. Performed By: [facility] Laboratorie s [facility] [place] [address] Casting House Laborer: Raphael javier III, M.D. CLIA#: [id number] Phone#: Performed By: #### CBC, ADIF F, ANEU, BMP, GFR #### [place] [address] COVID 19 Source CORE SHAPER See Below Normal 01-24-2020 [facility] ([place]) (89996) Comment: Result Comment: Nasopharynge al Swab Performed By: [facility] Laboratorie s [address] [place] [address] Casting House Laborer: Raphael javier III, M.D. CLIA#: [id number] Phone#: Performed By: #### CBC, ADIF F, ANEU, BMP, GFR #### [address] [address] myco on 2020-01-23 Mycoplasma IgM Negative Normal 01-23-2020 [facility] ([place]) (63421) Comment: Result Comment: INTERPRETATI ON OF MYCOPLASMA [...] CBC, ADIF F, ANEU, BMP, GFR #### [address] [address] crp on 2020-01-23 CRP [Mass/Vol] 0.57 <=0.80 mg/dL Normal 01-23-2020 [facility] ([place]) (83654) Comment: Performed By: #### CBC, ADIF F, ANEU, BMP, GFR #### [facility] [address] [place] [address] cnpn on 2020-01-23 CNPN Telephone (FAMPWS) Normal 01-23-2020 [place] [facility] SALLY VARGAS ([id number]) 1980 F [place] Date Time Provider Department (05598) 01/23/20 ISABEL ARIAS) FAMPWS During your visit today, we recorded the following informati on about you: Lexy Tapia RN 01/23/2020 8:55 AM Signed fyi-Patient calls to report that she went to [facility] with chest pain. Transferred to [facility] and Echo was normal. She will have stress test tomorrow. Awaiting COVID-19 test results . Wanted PCP office aware. Reminded to schedule hospital follow up within two weeks of discharge. Lexy ARIAS PA-C 01/23/2020 9:10 AM Signed Noted. Please request ER records. Roxanne Patel MA, MA 01/23/2020 9:32 AM Signed Sent records to [facility]. DARRYN Fritz PA-C 01/24/2020 9:02 AM Signed Patient is scheduled this afternoon for ER Follow up. Basically until I have the ER report and stress test results, theres not much I can do. As we discussed, She is supposed t o be following up with cardiology- has seen whitley qiu as well. Please reschedule her for later this w [place] so we have time to get the [...] there is not [employer] drivers in [facility] so waiting o n community [facility] and has no way to get there to get [facility] offered appt for until we get reocrds will check to see i f they were sent she also canceled her stress test Due to being in the hospital and being transferr ed she states. DARRYN Fritz PA-C 01/24/2020 9:28 AM Signed wll discuss with patient this afternoon. Allergies As of Date: 01/23/2020 Noted Allergy Reaction ASA (SALICYLATES) 01/27/2011 14 - Other: See Comments Comments: ulcers CONTRAST DYE (IODINE) 05/17/2008 12 - Shortness of Breath FLAGYL (METRONIDAZOLE HCL) 03/11/2010 12 - Shortness of [place] th IBUPROFEN 06/18/2016 8 - GI Upset [...] 14.1 11.5-15.5 % Normal 01-22 [facility] (RBC) [Ratio] [facility] ([place]) (16482) Comment: Performed By: #### CBC, ADIF F, ANEU, BMP, GFR #### [place] [address] Hematocrit (Bld) [Volume 35.6 34.0-46.0 % Normal 01-22 [facility] fraction] ([place]) (0000 0) Comment: Performed By: #### CBC, ADIF F, ANEU, BMP, GFR #### [place] [address] Hemoglobin (Bld) 11.9 12.0-16.0 G/dL Low 01-23-2020 [facility] [Mass/Vol] ([place]) (000 00) Comment: Performed By: #### CBC, ADIF F, ANEU, BMP, GFR #### [place] [id number] MCH (RBC) [Entitic mass] 30.0 27.0-33.0 pg Normal 01-22 [facility] ([place]) (0000 0) Comment: Performed By: #### CBC, ADIF F, ANEU, BMP, GFR #### [address] [address] MCHC (RBC) [Mass/Vol] 33.4 32.0-36.0 G/dL Normal 01-23-20 20 [facility] ([place]) (0000 0) Comment: Performed By: #### CBC, ADIF F, ANEU, BMP, GFR #### [place] [id number] MCV (RBC) [Entitic vol] 89.8 80.0-99.0 fL Normal 2019 [facility] ([place]) (0000 0) Comment: Performed By: #### CBC, ADIF F, ANEU, BMP, GFR #### [address] [address] Platelet mean volume 8.5 6.6-10.5 fL Normal 0 [facility] (Bld) [Entitic vol] ([place]) (08837) Comment: Performed By: #### CBC, ADIF F, ANEU, BMP, GFR #### [address] [address] Platelets (Bld) [#/Vol] 235 150-450 10 3/mcL Normal 2019 [facility] ([place]) (54485) Comment: Performed By: #### CBC, ADIF F, ANEU, BMP, GFR #### [place] [id number] RBC (Bld) [#/Vol] 3.97 4.10-5.30 10 6/mcL Low 01-23-2020 [facility] ([place]) (0000 0) Comment: Performed By: #### CBC, ADIF F, ANEU, BMP, GFR #### [place] [address] WBC (Bld) [#/Vol] 10.20 4.50-10.80 10 3/mcL Normal 01-23-2020 [facility] ([place]) (63666) Comment: Performed By: #### CBC, ADIF F, ANEU, BMP, GFR #### [address] [address] bmp on 2020-01-23 Creatinine [Mass/Vol] 0.94 0.50-1.20 mg/dL Normal 01-23-20 20 [facility] ([place]) (94430) Comment: Performed By: #### CBC, ADIF F, ANEU, BMP, GFR #### [place] [address] Urea nitrogen/Creatinine 20.2 10.0-22.0 ratio Normal 01-22 [facility] [Mass ratio] Foundat ion ([place]) (12332) Comment: Performed By: #### CBC, ADIF F, ANEU, BMP, GFR #### [place] [address] Calcium [Mass/Vol] 9.4 8.4-10.1 mg/dL Normal 01-23-2020 [facility] ([place]) (0000 0) Comment: Performed By: #### CBC, ADIF F, ANEU, BMP, GFR #### [address] [address] Chloride [Moles/Vol] 106 98-110 mEq/L Normal 0 [facility] ([place]) (0000 0) Comment: Performed By: #### CBC, ADIF F, ANEU, BMP, GFR #### [address] [address] CO2 [Moles/Vol] 28 22-32 mEq/L Normal 01-23-2020 [facility] ([place]) (79715) Comment: Performed By: #### CBC, ADIF F, ANEU, BMP, GFR #### [address] [address] Electrolyte Balance 6.0 4.0-15.0 mEq/L Normal 01-23-2020 [facility] ([place]) (0000 0) Comment: Performed By: #### CBC, ADIF F, ANEU, BMP, GFR #### [address] [address] Glucose [Mass/Vol] 91 70-110 mg/dL Normal 01-23-2020 [facility] ([place]) (18966) Comment: Performed By: #### CBC, ADIF F, ANEU, BMP, GFR #### [address] [address] Potassium [Moles/Vol] 4.2 3.5-5.0 mEq/L Normal 01-23-20 20 [facility] ([place]) (0000 0) Comment: Performed By: #### CBC, ADIF F, ANEU, BMP, GFR #### [address] [address] Sodium [Moles/Vol] 140 136-145 mEq/L Normal 01-23-2020 [facility] ([place]) (92540) Comment: Performed By: #### CBC, ADIF F, ANEU, BMP, GFR #### [address] [address] Urea nitrogen [Mass/Vol] 19.0 8.0-22.0 mg/dL Normal 01-22 [facility] ([place]) (03926) Comment: Performed By: #### CBC, ADIF F, ANEU, BMP, GFR #### [address] [address] .morph on 2020-01-13 1 Platelets (Bld) [#/Vol] Normal Normal 2019 [facility] ([place]) (59806) Comment: Result Comment: Few large pl atelets seen. Performed By: #### CBC, ADIF F, ANEU, BMP, GFR #### [place] [address] RBC morphology finding Nom Normal Normal [facility] (Bld) ([place]) (0000 0) Comment: Performed By: #### CBC, ADIF F, ANEU, BMP, GFR #### [place] [address] .manual diff on Basophil %, Manual 0.0 0.0-2.5 % Normal 01-23-2020 [facility] ([place]) (19448) Comment: Performed By: #### CBC, ADIF F, ANEU, BMP, GFR #### [place] [address] Basophil, Abs Manual 0.00 0.00-0.27 10 3/mcL Normal 0 [facility] ([place]) (31196) Comment: Performed By: #### CBC, ADIF F, ANEU, BMP, GFR #### [place] [address] Cells Counted 100 Normal 01-23-2020 [facility] (23389) Comment: Performed By: #### CBC, ADIF F, ANEU, BMP, GFR #### [address] [address] Eosinophil %, Manual 0.0 0.0-6.0 % Normal 0 [facility] ([place]) (13549) Comment: Performed By: #### CBC, ADIF F, ANEU, BMP, GFR #### [place] [address] Eosinophil, Abs Manual 0.00 0.00-0.65 10 3/mcL Normal 020 [facility] ([place]) (45403) Comment: Performed By: #### CBC, ADIF F, ANEU, BMP, GFR #### [place] [address] Lymphocyte %, Manual 16.0 20.0-40.0 % Low 0 [facility] ([place]) (67091) Comment: Performed By: #### CBC, ADIF F, ANEU, BMP, GFR #### [place] [address] Lymphocyte, Abs Manual 1.63 0.90-4.32 10 3/mcL Normal 020 [facility] ([place]) (76161) Comment: Performed By: #### CBC, ADIF F, ANEU, BMP, GFR #### [place] [address] Monocyte %, Manual 5.0 2.0-13.0 % Normal 01-23-2020 [facility] ([place]) (93294) Comment: Performed By: #### CBC, ADIF F, ANEU, BMP, GFR #### [place] [address] Monocyte, Abs Manual 0.51 0.09-1.40 10 3/mcL Normal 0 [facility] ([place]) (34353) Comment: Performed By: #### CBC, ADIF F, ANEU, BMP, GFR #### [place] [address] Neutrophil %, Manual 79.0 50.0-75.0 % High 0 [facility] ([place]) (91242) Comment: Performed By: #### CBC, ADIF F, ANEU, BMP, GFR #### [place] [address] Neutrophil, Abs Manual 8.06 2.25-8.10 10 3/mcL Normal 020 [facility] ([place]) (09200) Comment: Performed By: #### CBC, ADIF F, ANEU, BMP, GFR #### [place] [address] .gfr on 2020-01-23 GFR >60 Normal 01-22- 0 [facility] ([place]) (07375) Comment: Result Comment: GFR Population mean for Afri can Irish, Non- Americans Ages 20-29 = 116 mL/min/1.73 [...] CBC, ADIF F, ANEU, BMP, GFR #### [address] [address] GFR Non- >60 Normal 01-22 [facility] ([place]) (03016) Comment: Result Comment: GFR Population mean for Afri can Irish, Non- Americans Ages 20-29 = 116 mL/min/1.73 [...] CBC, ADIF F, ANEU, BMP, GFR #### [address] [address] spag on 2020-01-22 SPAG . Normal 01-22-2020 [facility] asa MICRO - Microbiology [facility] ([place]) (40464) PROCEDURE: Streptococcus Pneumoniae Urine Antig [^1 *1] SOURCE: Urine BODY SITE: COLLECTED DATE/TIME: 5/10/20 20 11:35 EDT RECEIVED DATE/TIME: 01/22/2020 12:14 EDT [...] Locations *1: This test was performed at: [address], [address]- , [place] [facility] Comment: Performed By: #### CBC, ADIF F, ANEU, BMP, GFR #### [place] [address] respid on 2020-01-13 0 Adenovirus Not Detected Not Detected Normal 01-22-2020 [facility] ([place]) (0000 0) Comment: Performed By: #### CBC, ADIF F, ANEU, BMP, GFR #### [place] [address] Bordetella Not Detected Not Detected Normal 01-22-2020 [facility] Parapertussis Founda tion ([place]) (57275) Comment: Performed By: #### CBC, ADIF F, ANEU, BMP, GFR #### [place] [address] Bordetella Pertussis Not Detected Not Detected Normal [facility] ([place]) (04954) Comment: Performed By: #### CBC, ADIF F, ANEU, BMP, GFR #### [place] [address] Chlamydophila Not Detected Not Detected Normal 01-22-2020 [facility] pneumoniae Foundatio n ([place]) (30020) Comment: Performed By: #### CBC, ADIF F, ANEU, BMP, GFR #### [address] [address] Coronavirus 229E Not Detected Not Detected Normal 020 [facility] (Not COVID-19) [facility] ([place]) (71736) Comment: Performed By: #### CBC, ADIF F, ANEU, BMP, GFR #### [address] [address] Coronavirus HKU1 Not Detected Not Detected Normal 020 [facility] (Not COVID-19) [facility] ([place]) (24679) Comment: Performed By: #### CBC, ADIF F, ANEU, BMP, GFR #### [address] [address] Coronavirus NL63 Not Detected Not Detected Normal 020 [facility] (Not COVID-19) [facility] ([place]) (84941) Comment: Performed By: #### CBC, ADIF F, ANEU, BMP, GFR #### [address] [address] Coronavirus OC43 Not Detected Not Detected Normal 020 [facility] (Not COVID-19) [facility] ([place] (58821) Comment: Performed By: #### CBC, ADIF F, ANEU, BMP, GFR #### [address] [address] Human Metapneumovirus Not Detected Not Detected Normal [facility] ([place]) (88998) Comment: Performed By: #### CBC, ADIF F, ANEU, BMP, GFR #### [address] [address] Influenza A Not Detected Not Detected Normal 01-22-2020 A [facility] ([place]) (0000 0) Comment: Performed By: #### CBC, ADIF F, ANEU, BMP, GFR #### [address] [address] Influenza B Not Detected Not Detected Normal 01-22-2020 A [facility] ([place]) (0000 0) Comment: Performed By: #### CBC, ADIF F, ANEU, BMP, GFR #### [facility] [address] [place], [place] [address] Mycoplasma Not Detected Not Detected Normal 01-22-2020 [facility] pneumoniae Foundatio n ([place]) (82124) Comment: Performed By: #### CBC, ADIF F, ANEU, BMP, GFR #### [address] [address] Parainfluenza 1 Not Detected Not Detected Normal 01-22-20 [facility] ([place]) (49702) Comment: Performed By: #### CBC, ADIF F, ANEU, BMP, GFR #### [address] [address] Parainfluenza 2 Not Detected Not Detected Normal 01-22-20 [facility] ([place]) (10514) Comment: Performed By: #### CBC, ADIF F, ANEU, BMP, GFR #### [place] [address] Parainfluenza 3 Not Detected Not Detected Normal 01-22-20 [facility] ([place]) (25787) Comment: Performed By: #### CBC, ADIF F, ANEU, BMP, GFR #### [address] [address] Parainfluenza 4 Not Detected Not Detected Normal 01-22-[address] [place] [address] ([place]) (78927) Comment: Performed By: #### CBC, ADIF F, ANEU, BMP, GFR #### [address] [address] Respiratory Not Detected Not Detected Normal 01-22-2020 [facility] Syncytial Virus Foun dation ([place]) (38970) Comment: Performed By: #### CBC, ADIF F, ANEU, BMP, GFR #### [address] [address] Rhinovirus/Enterovirus Not Detected Not Detected Normal 0 01-22-2020 [facility] ([place]) (14537) Comment: Performed By: #### CBC, ADIF F, ANEU, BMP, GFR #### [address] [address] sonali on 2020-01-22 SONALI . Normal 01-22-2020 [facility] MICRO - Microbiology [facility] ([place]) (49752) PROCEDURE: Legionella Urine Ag [*1] SOURCE: Urine [...] Locations *1: This test was performed at: [address], [address]- , [place] Comment: Performed By: #### CBC, ADIF F, ANEU, BMP, GFR #### [address] [address] ldh on 2020-01-22 LDH 194 120-246 U/L Normal 01-22-2020 [facility] ([place]) (16409) Comment: Performed By: #### CBC, ADIF F, ANEU, BMP, GFR #### [address] [address] fib on 2020-01-22 Fibrinogen 414 250-550 mg/dL Normal 01-22-2020 [facility] ([place]) (94178) Comment: Performed By: #### CBC, ADIF F, ANEU, BMP, GFR #### [address] [address] ferr on 2020-01-22 Ferritin [Mass/Vol] 40 8-252 ng/mL Normal 01-22-2020 [facility] ([place]) (04312) Comment: Performed By: #### CBC, ADIF F, ANEU, BMP, GFR #### [address] [address] dimer on 2020-01-22 Fibrin D-dimer FEU IA <200 0-230 ug/mL Normal 01-22-20 20 [facility] (Bld) [Mass/Vol] ([place] ) (10577) Comment: Result Comment: Results repo rted in [...] CBC, ADIF F, ANEU, BMP, GFR #### [facility] [address] [place] [address] ct angiography chest w/contrast on 2020-01-22 CT ANGIOGRAPHY ORIGINAL Normal 01-22-2020 [facility] CHEST W/CONTRAST CT PULMONARY ANGIOGRAM WITH IV CONTRAST: with post-processing, volume rendering and 3-D acquisitions. This exam was performed according to our departmental dose optimization program, and includes the [facility] ([place]) llowing measures where appli cable: automated exposure control, adjustment of the mAs and/or kVp according to patient size and/or exam, and an iterative reconstruction algorithm. Patient received 13 hour (30427) contrast allergy preparation. CLINICAL STATEMENT: elevated d [...] Erythrocyte distribution 13.7 11.5-15.5 % Normal 01-21 [facility] (RBC) [Ratio] Foundation ([place]) (54795) Comment: Performed By: #### CBC, ADIF F, ANEU, BMP, GFR #### [address] [address] Hematocrit (Bld) [Volume 36.0 34.0-46.0 % Normal 01-21 [facility] fraction] ([place]) (0000 0) Comment: Performed By: #### CBC, ADIF F, ANEU, BMP, GFR #### [address] [address] Hemoglobin (Bld) 11.9 12.0-16.0 G/dL Low 01-22-2020 [facility] [Mass/Vol] ([place]) (000 00) Comment: Performed By: #### CBC, ADIF F, ANEU, BMP, GFR #### [address] [address] MCH (RBC) [Entitic mass] 29.6 27.0-33.0 pg Normal 01-21 [facility] ([place]) (0000 0) Comment: Performed By: #### CBC, ADIF F, ANEU, BMP, GFR #### [address] [address] MCHC (RBC) [Mass/Vol] 33.0 32.0-36.0 G/dL Normal 01-22-20 20 [facility] ([place]) (0000 0) Comment: Performed By: #### CBC, ADIF F, ANEU, BMP, GFR #### [address] [address] MCV (RBC) [Entitic vol] 89.8 80.0-99.0 fL Normal 2019 [facility] ([place]) (0000 0) Comment: Performed By: #### CBC, ADIF F, ANEU, BMP, GFR #### [address] [address] Platelet mean volume 8.6 6.6-10.5 fL Normal 0 [facility] (d) [Entitic vol] ([place]) (04637) Comment: Performed By: #### CBC, ADIF F, ANEU, BMP, GFR #### [place] [id number] Platelets (Bld) [#/Vol] 269 150-450 10 3/mcL Normal 2019 [facility] ([place]) (48947) Comment: Performed By: #### CBC, ADIF F, ANEU, BMP, GFR #### [address] [address] RBC (Bld) [#/Vol] 4.01 4.10-5.30 10 6/mcL Low 01-22-2020 [facility] ([place]) (0000 0) Comment: Performed By: #### CBC, ADIF F, ANEU, BMP, GFR #### [place] [id number] WBC (Bld) [#/Vol] 12.20 4.50-10.80 10 3/mcL High 01-22-2020 [facility] ([place]) (0000 0) Comment: Performed By: #### CBC, ADIF F, ANEU, BMP, GFR #### [address] [address] bmp on 2020-01-22 Calcium [Mass/Vol] 9.5 8.4-10.1 mg/dL Normal 01-22-2020 [facility] ([place]) (0000 0) Comment: Performed By: #### CBC, ADIF F, ANEU, BMP, GFR #### [address] [address] Chloride [Moles/Vol] 106 98-110 mEq/L Normal 0 [facility] ([place]) (0000 0) Comment: Performed By: #### CBC, ADIF F, ANEU, BMP, GFR #### [address] [address] CO2 [Moles/Vol] 24 22-32 mEq/L Normal 01-22-2020 [facility]) (43422) Comment: Performed By: #### CBC, ADIF F, ANEU, BMP, GFR #### [address] [address] Creatinine [Mass/Vol] 0.76 0.50-1.20 mg/dL Normal 01-22-20 20 [facility] ([place]) (08680) Comment: Performed By: #### CBC, ADIF F, ANEU, BMP, GFR #### [address] [address] Electrolyte Balance 6.0 4.0-15.0 mEq/L Normal 01-22-2020 [facility]) (0000 0) Comment: Performed By: #### CBC, ADIF F, ANEU, BMP, GFR #### [address] [address] Glucose [Mass/Vol] 149 70-110 mg/dL High 01-22-2020 [facility] ([place]) (81984) Comment: Performed By: #### CBC, ADIF F, ANEU, BMP, GFR #### [address] [address] Potassium [Moles/Vol] 4.1 3.5-5.0 mEq/L Normal 01-22-20 20 [facility] ([place]) (0000 0) Comment: Performed By: #### CBC, ADIF F, ANEU, BMP, GFR #### [address] [address] Sodium [Moles/Vol] 136 136-145 mEq/L Normal 01-22-2020 [facility] ([place]) (99447) Comment: Performed By: #### CBC, ADIF F, ANEU, BMP, GFR #### [address] [address] Urea nitrogen [Mass/Vol] 12.0 8.0-22.0 mg/dL Normal 01-21 [facility] ([place]) (59264) Comment: Performed By: #### CBC, ADIF F, ANEU, BMP, GFR #### [address] [address] Urea nitrogen/Creatinine 15.8 10.0-22.0 ratio Normal 01-21 [facility] [Mass ratio] [facility] ([place]) (24025) Comment: Performed By: #### CBC, ADIF F, ANEU, BMP, GFR #### [address] [address] .neuabs on Neutrophils (Bld) 10.70 2.25-8.10 10 3/mcL High 01-22-2020 [facility] [#/Vol] [facility] ([place]) (11450) Comment: Performed By: #### CBC, ADIF F, ANEU, BMP, GFR #### [address] [address] .gfr on 2020-01-22 GFR Non- >60 Normal 01-21 [facility] ([place]) (32943) Comment: Result Comment: GFR Population mean for Afri can Irish, Non- Americans Ages 20-29 = 116 mL/min/1.73 [...] CBC, ADIF F, ANEU, BMP, GFR #### [address] [address] GFR >60 Normal 0 [facility] ([place]) (62422) Comment: Result Comment: GFR Population mean for Afri can Irish, Non- Americans Ages 20-29 = 116 mL/min/1.73 [...] CBC, ADIF F, ANEU, BMP, GFR #### [address] [address] .auto diff on 01-21 Ammonia (P) [Mass/Vol] 0.30 0.09-1.40 10 3/mcL Normal 020 [facility] ([place]) (84086) Comment: Performed By: #### CBC, ADIF F, ANEU, BMP, GFR #### [address] [address] Basophils (Bld) 0.00 0.00-0.27 10 3/mcL Normal 01-22-2020 [facility] [#/Vol] [facility] ([place]) (73954) Comment: Performed By: #### CBC, ADIF F, ANEU, BMP, GFR #### [address] [address] Basophils/100 WBC (Bld) 0.3 0.0-2.5 % Normal 2019 [facility] ([place]) (0000 0) Comment: Performed By: #### CBC, ADIF F, ANEU, BMP, GFR #### [address] [address] Eosinophils (Bld) 0.00 0.00-0.65 10 3/mcL Normal 01-22-2020 [facility] [#/Vol] [facility] ([place]) (10312) Comment: Performed By: #### CBC, ADIF F, ANEU, BMP, GFR #### [address] [address] Eosinophils/100 WBC (Bld) 0.1 0.0-6.0 % Normal 01-12 0-2019 [facility] ([place]) (0000 0) Comment: Performed By: #### CBC, ADIF F, ANEU, BMP, GFR #### [address] [address] Lymphocytes (Bld) 1.10 0.90-4.32 10 3/mcL Normal 01-22-2020 [facility] [#/Vol] [facility] ([place]) (69466) Comment: Performed By: #### CBC, ADIF F, ANEU, BMP, GFR #### [address] [address] Lymphocytes/100 WBC (Bld) 9.3 20.0-40.0 % Low - 0-2019 [facility] ([place]) (0000 0) Comment: Performed By: #### CBC, ADIF F, ANEU, BMP, GFR #### [address] [address] Monocytes/100 WBC (Bld) 2.2 2.0-13.0 % Normal 2019 [facility] ([place]) (0000 0) Comment: Performed By: #### CBC, ADIF F, ANEU, BMP, GFR #### [address] [address] Neutrophils/100 WBC (Bld) 88.1 50.0-75.0 % High - 0-2019 [facility] ([place]) (0000 0) Comment: Performed By: #### CBC, ADIF F, ANEU, BMP, GFR #### [address] [address] urinalysis with microscopy on 2020-01-21 Amorphous NONE Normal 01-21-2020 [facility] (54842) Comment: Performed By: #### [id number] ## ## [facility],[address] [place] [address] Bacteria LM.HPF (Urine sed) 3+ Normal [facility] [/Area] [facility] ( 43149) Comment: Performed By: #### [id number] ## ## [facility],[address] [place] [address] Bilirubin [Mass/Vol] NEG NORMAL: NEGATIVE mg/dL Normal [facility] (84024) Comment: Performed By: #### [id number] ## ## [facility],[address] [place] [address] Blood 10 NORMAL: NEGATIVE Abnormal 01-21-2020 [facility] (97327) Comment: Performed By: #### [id number] ## ## [facility],[address] [place] [address] Casts LM.LPF (Urine sed) NONE Normal 01-20 [facility] [#/Area] [facility] ( 59547) Comment: Performed By: #### [id number] ## ## [facility],[address] [place] [address] Clarity (U) sl.cloudy NORMAL: CLEAR Normal 01-21-[address] [facility] ( 41481) Comment: Performed By: #### [id number] ## ## [facility],[address] [place] [address] Color (U) p.yel NORMAL: YELLOW Normal 01-21-2020 [facility] (63774) Comment: Performed By: #### [id number] ## ## [facility],[address] [place] [address]88 Crystals LM Nom (Urine sed) NONE Normal [facility] ( 24304) Comment: Performed By: #### [id number] ## ## [facility],[address] [place] [address] Epi Cells MANY Normal 01-21-2020 [facility] (05891) Comment: Performed By: #### [id number] ## ## [facility],[address] [place] [address] Glucose [Mass/Vol] NORM NORMAL: NORMAL Normal 2019 [facility] ( 76111) Comment: Performed By: #### [id number] ## ## [facility],[address] [place] [address] Ketone NEG NORMAL: NEGATIVE Normal 01-21-2020 [facility] (89560) Comment: Performed By: #### [id number] ## ## [facility],[address] [place] [address] Mucous NONE Normal 01-21-2020 [facility] (45786) Comment: Performed By: #### [id number] ## ## [facility],[address] [place] [address] Nitrite Ql (U) NEG NORMAL: NEGATIVE Normal 01-21-20 [facility] [facility] ( 10262) Comment: Performed By: #### [id number] ## ## [facility],[address] [place] [address] 19428 pH (Bld) 5 NORMAL: 5.0-8.0 Normal 01-21-[address] [facility] (06494) Comment: Performed By: #### [id number] ## ## [facility],[address] [place] [address] 19255 Protein (U) NEG NORMAL: NEGATIVE mg/dL Normal 01-21-2020 [facility] [Mass/Vol] [facility] (88714) Comment: Performed By: #### [id number] ## ## [facility],[address] [place] [address] 05078 Rbc 0-5 0-3 / hpf Normal 01-21-2020 [facility] (65459) Comment: Performed By: #### [id number] ## ## [facility] [place] [address] 43464 Sp Leon 1.020 NORMAL: 1.010-1.030 Normal 0 [facility] ( 31604) Comment: Performed By: #### [id number] ## ## [facility],[address] [place] [address] 58882 Specimen type Nom (Spec) UNSPECIFIED Normal [facility] ( 14355) Comment: Performed By: #### [id number] ## ## [facility],[address] [place] [address] 62512 URINALYSIS WITH MICROSCOPY Normal [facility] (39323) Comment: Result Comment: URINALYSIS Performed By: #### [id number] ## ## [facility],[address] [place] [address] 04924 Urobilinog NORM NORMAL: NORMAL Normal 01-21-[address] [facility] (18867) Comment: Performed By: #### [id number] ## ## [facility],[address] [place] [address] 01811 Wbc 1-5 0-5 / hpf Normal 01-21-2020 [facility] (04106) Comment: Performed By: #### [id number] ## ## [facility],[address] [place] [address] 41432 WBC (Bld) [#/Vol] NEG NORMAL: NEGATIVE 10*3/uL Normal 01-20 [facility] (21140) Comment: Result Comment: URINE MICROS COPIC Performed By: #### [id number] ## ## [facility],[address] [place] [address] 28868 Yeast LM Ql (Urine sed) NONE Normal 2019 [facility] (16854) Comment: Performed By: #### [id number] ## ## [facility],[address] [place] [address] 73048 troponin on 2020-01 Troponin I.cardiac <0.01 0.00 - 0.05 ng/mL Normal 0 [facility] [Mass/Vol] [facility] (98183) Comment: Result Comment: Elevated tro ponin (above [...] as heterophile antibodi es). Performed By: #### [id number] ## ## [facility],[address] [place] [address] 11751 tropi on 2020-01-21 Troponin I.cardiac <0.015 0.000-0.040 ng/mL Normal 0 [facility] [Mass/Vol] [facility] [place] (89672) Comment: Result Comment: Troponin I r eference ranges (05/22/14): 0.00-0.040 ng/mL Negative an d non-diagnostic. >0.040 ng/mL Consistent with cardiac damage, increased clinical risk and possibility of myocardial in farction. Serial measurements, a rise & fall in test results, clinical histo ry, appropriate symptoms and/or ECG changes may help assess possibility of WI. *Other non-acute coronary sy ndrome conditions such as CHF, myoc arditis, pulmonary emboli, sepsis and cardiac surgery could result in myoc ardial damage and increased troponi n levels. Performed By: #### TROPI ### # [facility] [address] [place] [address] serum qual on 2020-01-21 EXTERNAL QC DONE? YES Normal 01-21-2020 [facility] (80099) Comment: Performed By: #### [id number] ## ## [facility],[address] [place] [address] 77608 INTERNAL QC PASS Normal 01-21-2020 [facility] (12853) Comment: Performed By: #### [id number] ## ## [facility] [facility] [address] SER NEGATIVE NEGATIVE Normal 01-21-2020 [facility] (75550) Comment: Performed By: #### [id number] ## ## [facility] [facility] 27875 d-dimer, quantitative on 2020-01-21 D-DIMER QUANT 256 0 - 230 ng/ml High 01-21-2020 [facility] (45002) Comment: Performed By: #### [id number] ## ## [facility],[address] [place] [address] 79796 D-DIMER, QUANTITATIVE Normal 01-21-20 20 [facility] (19309) Comment: Result Comment: QUANT D-DIME R Performed By: #### [id number] ## ## [facility],[address] [place] [address] brain w/o contrast on 2020-01-21 CT BRAIN W/O [facility] Normal 0 [facility] ospital [address] [place] [address] (82974) Patient: SALLY VARGAS Phone#: : 1980 Age: 39 Gender: F Pt. Type: ER Account: [id number] Location: [facility] Ordering: DR. ANA RODRIGUEZ Exam Date: 01/20/2020/23:41 Family Phys: ISABEL ARIAS Charge Code: [id number] Physician: [place] Order #: [id number] DLP Dose#: [id number] PROCEDURE: CT BRAIN WITHOUT CONTRAST COMPARISON: [facility], CT, BRAIN W/O CON, 01/29/2017, 22:39. INDICATIONS: Dizziness. TECHNIQUE: CT images were obtained without contrast material . All CT scans at this [facility] use dose modulation, iterative reconstruction, and/or [...] - Page 2 of 2 Patient: SALLY VARGAS Phone#: : 1980 Age: 39 Gender: F Pt. Type: ER Account: [id number] Location: [facility] Ordering: DR. ANA RODRIGUEZ Exam Date: 01/20/2020/23:41 Family Phys: ISABEL ARIAS Charge Code: [id number] Physician: [place] Order #: [id number] DLP Dose#: [id number] Approved by: Kelsey Mae MD on 01/21/2020 at 18:04 cmp with egfr on 31-01-09 Age - Reported 39 years Normal 01-21-2020 [facility] (94925) Comment: Performed By: #### [id number] ## ## [facility],[address] [place] [address] 66090 Albumin [Mass/Vol] 4.3 3.4 - 4.8 g/dL Normal 01-21-2020 [facility] ( 76205) Comment: Performed By: #### [id number] ## ## [facility],[address] [place] [address] 38339 Albumin/Globulin [Mass 1.5 0.9 - 1.6 {ratio} Normal 020 [facility]] [facility]spital (83849) Comment: Performed By: #### [id number] ## ## [facility],[address] [place] [address] 01886 ALK PHOS 71 38 - 126 U/L Normal 01-21-2020 [facility] (40081) Comment: Performed By: #### [id number] ## ## [facility],[address] [place] [address] 24248 ALT/SGPT 11 8 - 35 U/L Normal 01-21-2020 [facility] (28642) Comment: Performed By: #### [id number] ## ## [facility],[address] [place] [address] 26380 Anion gap [Moles/Vol] 12 10 - 20 mmol/L Normal 01-21-20 20 [facility] ( 15107) Comment: Performed By: #### [id number] ## ## [facility],[address] [place] [address] 86361 AST/SGOT 12 13 - 39 U/L Low 01-21-2020 [facility] (17558) Comment: Performed By: #### [id number] ## ## [facility],[address] [place] [address] 23821 B/C RATIO 19 0 - 30 ratio Normal 01-21-2020 [facility] (88220) Comment: Performed By: #### [id number] ## ## [facility],[address] [place] [address] 99349 Bilirubin [Mass/Vol] 0.3 0.0 - 1.5 mg/dl Normal 0 [facility] ( 21460) Comment: Performed By: #### [id number] ## ## [facility],[address] [place] [address] 54719 Calcium [Mass/Vol] 9.2 8.6 - 10.2 mg/dl Normal 01-21-2020 [facility] ( 75534) Comment: Performed By: #### [id number] ## ## [facility],[address] [place] [address] 94341 Chloride [Moles/Vol] 102 98 - 107 mmol/L Normal 0 [facility] ( 92344) Comment: Performed By: #### [id number] ## ## [facility],[address] [place] [address] 55487 CO2 [Moles/Vol] 25.6 21.0 - 31.0 mmol/L Normal 01-21-2020 [facility] ( 66550) Comment: Performed By: #### [id number] ## ## [facility],[address] [place] [address] 57077 Creatinine [Mass/Vol] 1.1 0.6 - 1.2 mg/dl Normal 01-21-20 20 [facility] ( 32443) Comment: Performed By: #### [id number] ## ## [facility],[address] [place] [address] 62625 GFR/1.73 sq M >60 60 - 999 mL/min/{1.73_m2} Normal 0 [facility] among [facility] non-blacks MDRD (000 00) (S/P/Bld) [Vol rate/Area] [...] OF AGE AND OLDER. Performed By: #### [id number] ## ## [facility],[address] [place] [address] 24144 GFR/1.73 sq M predicted 55 60 - 999 ML/MINUTE Low 2019 [facility] non-blacks MDRD Hospital (71001) (S/P/Bld) [Vol rate/Area] Comment: Performed By: #### [id number] ## ## [facility],[address] [place] [address] 59640 GFR/1.73 sq M predicted among Normal 01-21-2020 [facility] non-blacks MDRD (S/P/Bld) [Vol Hospital (08239) rate/Area] Comment: Result Comment: COMPREHENSIV E METABOLIC PANEL Performed By: #### [id number] ## ## [facility],[address] [place] [address] 91035 Globulin (S) [Mass/Vol] 2.9 1.5 - 3.8 G/DL Normal 2019 [facility] ( 06982) Comment: Performed By: #### [id number] ## ## [facility],[address] [place] [address] 13186 Glucose [Mass/Vol] 100 74 - 106 mg/dl Normal 01-21-2020 [facility] ( 82134) Comment: Performed By: #### [id number] ## ## [facility],[address] [place] [address] [place] [address] Potassium [Moles/Vol] 3.6 3.5 - 5.1 mmol/L Normal 01-21-20 20 [facility] ( 53786) Comment: Performed By: #### [id number] ## ## [facility],[address] [place] [address] [place] [address] Protein [Mass/Vol] 7.2 6.4 - 8.3 g/dl Normal 01-21-2020 [facility] ( 31717) Comment: Performed By: #### [id number] ## ## [facility],[address] [place] [address] [place] [address] Sodium [Moles/Vol] 136 136 - 145 mmol/l Normal 01-21-2020 [facility] ( 13038) Comment: Performed By: #### [id number] ## ## [facility],[address] [place] [address] [place] [address] Urea nitrogen [Mass/Vol] 21 6 - 20 mg/dl High 01-20 [facility] ( 47794) Comment: Performed By: #### [id number] ## ## [facility],[address] [facility] [address] chest 2 views on 31-01-09 CHEST 2 VIEWS [facility] Normal 01-21-20 [facility] [address] [place], [place] [address] (19825) Patient: SALLY VARGAS Phone#: : 1980 Age: 39 Gender: F Pt. Type: ER Account: [id number] Location: [facility] Ordering: DR. ANA RODRIGUEZ Exam Date: 01/20/2020/23:45 Family Phys: ISABEL ARIAS Charge Code: [id number] Physician: [place] Order #: [id number] DLP Dose#: PROCEDURE: X-RAY CHEST 2 VIEWS COMPARISON: [facility], XR, CHEST 2 VIEWS, 11/25/2019, 0:08. INDICATIONS: Shortness [...] Erythrocyte distribution 13.6 11.5-15.5 % Normal 01-20 [facility] width (RBC) [Ratio] [facility] ([place]) (74933) Comment: Performed By: #### CBC, ADIF F, ANEU, BMP, GFR #### [facility] [address] [place] [address] 04924 Hematocrit (Bld) [Volume 35.6 34.0-46.0 % Normal 01-20 [facility] fraction] ([place]) (0000 0) Comment: Performed By: #### CBC, ADIF F, ANEU, BMP, GFR #### [place] [address] Hemoglobin (Bld) 11.4 12.0-16.0 G/dL Low 01-21-2020 [facility] [Mass/Vol] ([place]) (000 00) Comment: Performed By: #### CBC, ADIF F, ANEU, BMP, GFR #### [place] [address] MCH (RBC) [Entitic mass] 29.5 27.0-33.0 pg Normal 01-20 [facility] ([place]) (0000 0) Comment: Performed By: #### CBC, ADIF F, ANEU, BMP, GFR #### [place] [address] MCHC (RBC) [Mass/Vol] 32.2 32.0-36.0 G/dL Normal 01-21-20 20 [facility] ([place]) (0000 0) Comment: Performed By: #### CBC, ADIF F, ANEU, BMP, GFR #### [place] [address] MCV (RBC) [Entitic vol] 91.7 80.0-99.0 fL Normal 2019 [facility] ([place]) (0000 0) Comment: Performed By: #### CBC, ADIF F, ANEU, BMP, GFR #### [place] [address] Platelet mean volume 8.6 6.6-10.5 fL Normal 0 [facility] (Bld) [Entitic vol] ([place]) (48400) Comment: Performed By: #### CBC, ADIF F, ANEU, BMP, GFR #### [place] [id number] Platelets (Bld) [#/Vol] 250 150-450 10 3/mcL Normal 2019 [facility] ([place]) (31537) Comment: Performed By: #### CBC, ADIF F, ANEU, BMP, GFR #### [address] [address] RBC (Bld) [#/Vol] 3.88 4.10-5.30 10 6/mcL Low 01-21-2020 A [facility] ([place]) (0000 0) Comment: Performed By: #### CBC, ADIF F, ANEU, BMP, GFR #### [address] [address] WBC (Bld) [#/Vol] 6.20 4.50-10.80 10 3/mcL Normal 01-21-2020 [facility] ([place]) (33106) Comment: Performed By: #### CBC, ADIF F, ANEU, BMP, GFR #### [address] [address] cbc + diff on 01-20 Basophils (Bld) 0.10 0.00 - 0.10 x10EE3/UL Normal 01-21-[address] [facility] [#/Vol] [facility] (96154) Comment: Performed By: #### [id number] ## ## [facility],[address] [place] [address] 93158 Basophils/100 WBC (Bld) 1.1 0.0 - 2.0 % Normal 2019 [facility] ( 61937) Comment: Performed By: #### [id number] ## ## [facility],[address] [place] [address] 34269 CBC + DIFF Normal 01-21-2020 [facility] (18129) Comment: Result Comment: CBC-COMPLETE BLOOD COUNT Performed By: #### [id number] ## ## [facility],[address] [place] [address] 41765 Eosinophils (Bld) 0.40 0.00 - 0.50 x10EE3/UL Normal 01-21-2020 [facility] [#/Vol] [facility] (29883) Comment: Performed By: #### [id number] ## ## [facility],[address] [place] [address] 40024 Eosinophils/100 WBC (Bld) 5.5 0.0 - 7.0 % Normal 0 [facility] ( 03537) Comment: Performed By: #### [id number] ## ## [facility],[address] [place] [address] 28612 Erythrocyte distribution 13.5 12.0 - 15.6 % Normal [facility] width (RBC) [Ratio] Hospital (09076) Comment: Performed By: #### [id number] ## ## [facility],[address] [place] [address] Hematocrit (Bld) [Volume 33.8 34.0 - 46.0 % Low [facility] fraction] [facility] ( 72320) Comment: Performed By: #### [id number] ## ## [facility],[address] [place] [address] 57153 Hemoglobin (Bld) 11.7 12.0 - 16.0 g/dl Low 01-21-2020 [facility] [Mass/Vol] [facility] (59455) Comment: Performed By: #### [id number] ## ## [facility],[address] [place] [address] 68244 Lymphocytes (Bld) 2.30 0.80 - 2.80 x10EE3/UL Normal 01-21-2020 [facility] [#/Vol] [facility] ospital (09031) Comment: Performed By: #### [id number] ## ## [facility],[address] [place] [address] 73035 Lymphocytes/100 WBC (Bld) 30.4 20.0 - 45.0 % Normal [facility] ( 78032) Comment: Performed By: #### [id number] ## ## [facility],[address] [place] [address] 86156 MANUAL DIFF N/A Normal 01-21-2020 [facility] (23864) Comment: Performed By: #### [id number] ## ## [facility],[address] [place] [address] 37572 MCH (RBC) [Entitic mass] 31 27 - 33 pg Normal 01-20 [facility] ( 84774) Comment: Performed By: #### [id number] ## ## [facility],[address] [place] [address] 19868 MCHC (RBC) [Mass/Vol] 35 32 - 36 X10 3 Normal 01-21-20 20 [facility] ( 70343) Comment: Performed By: #### [id number] ## ## [facility],[address] [place] [address] 62472 MCV (RBC) [Entitic vol] 88 80 - 99 fl Normal 2019 [facility] ( 36137) Comment: Performed By: #### [id number] ## ## [facility],[address] [place] [address] 89100 Monocytes (Bld) 0.50 0.20 - 1.00 x10EE3/UL Normal 01-21-2020 [facility] [#/Vol] [facility] (92690) Comment: Performed By: #### [id number] ## ## [facility],[address] [place] [address] 01420 MONOS % 6.5 0.0 - 10.0 % Normal 01-21-2020 [facility] (49392) Comment: Performed By: #### [id number] ## ## [facility],[address] [place] [address] 47208 Morphology Adrian (Bld) [Interp] N/A Normal 01-21-2020 [facility] ( 55067) Comment: Performed By: #### [id number] ## ## [address] [address] Neutrophils (Bld) 4.30 1.50 - 7.10 x10EE3/UL Normal 01-21-2020 [facility] [#/Vol] [facility] (83705) Comment: Performed By: #### [id number] ## ## [facility],[address] [place] [address] 54977 Neutrophils/100 WBC (Bld) 56.5 46.0 - 76.0 % Normal [facility] ( 34939) Comment: Performed By: #### [id number] ## ## [facility],[address] [place] [address] 06484 Platelet mean volume 8.3 6.6 - 10.5 fl Normal 01-21-20 [facility] (Bld) [Entitic vol] [facility] (95954) Comment: Result Comment: AUTOMATED DI FFERENTIAL Performed By: #### [id number] ## ## [facility],[address] [place] [address] 05944 Platelets (Bld) 298 150 - 450 x10EE3/UL Normal 01-21-2020 [facility] [#/Vol] [facility] (69710) Comment: Performed By: #### [id number] ## ## [facility],[address] [place] [address] 40060 RBC (Bld) [#/Vol] 3.82 4.10 - 5.30 x 10EE6/UL Low 0 [facility] ( 95706) Comment: Performed By: #### [id number] ## ## [facility],[address] [place] [address] 50993 WBC (Bld) [#/Vol] 7.6 4.5 - 10.8 x 10EE3/UL Normal 01-21-2020 [facility] ( 71608) Comment: Performed By: #### [id number] ## ## [facility],[address] [place] [address] 57552 bmp on 2020-01-21 Creatinine [Mass/Vol] 0.96 0.50-1.20 mg/dL Normal 01-21-20 20 [facility] ([place]) (62130) Comment: Performed By: #### CBC, ADIF F, ANEU, BMP, GFR #### [address] [address] Urea nitrogen/Creatinine 18.8 10.0-22.0 ratio Normal 01-20 [facility] [Mass ratio] [facility] ([place]) (20960) Comment: Performed By: #### CBC, ADIF F, ANEU, BMP, GFR #### [address] [address] Calcium [Mass/Vol] 8.7 8.4-10.1 mg/dL Normal 01-21-2020 [facility] ([place]) (0000 0) Comment: Performed By: #### CBC, ADIF F, ANEU, BMP, GFR #### [address] [address] Chloride [Moles/Vol] 108 98-110 mEq/L Normal 0 [facility] ([place]) (0000 0) Comment: Performed By: #### CBC, ADIF F, ANEU, BMP, GFR #### [address] [address] CO2 [Moles/Vol] 26 22-32 mEq/L Normal 01-21-2020 [facility] ([place]) (64617) Comment: Performed By: #### CBC, ADIF F, ANEU, BMP, GFR #### [address] [address] Electrolyte Balance 4.0 4.0-15.0 mEq/L Normal 01-21-2020 [facility] ([place]) (0000 0) Comment: Performed By: #### CBC, ADIF F, ANEU, BMP, GFR #### [address] [address] Glucose [Mass/Vol] 85 70-110 mg/dL Normal 01-21-2020 [facility] ([place]) (79201) Comment: Performed By: #### CBC, ADIF F, ANEU, BMP, GFR #### [address] [address] Potassium [Moles/Vol] 4.1 3.5-5.0 mEq/L Normal 01-21-20 20 [facility] ([place]) (0000 0) Comment: Performed By: #### CBC, ADIF F, ANEU, BMP, GFR #### [address] [address] Sodium [Moles/Vol] 138 136-145 mEq/L Normal 01-21-2020 [facility] ([place]) (59718) Comment: Performed By: #### CBC, ADIF F, ANEU, BMP, GFR #### [address] [address] Urea nitrogen [Mass/Vol] 18.0 8.0-22.0 mg/dL Normal 01-20 [facility] ([place]) (05217) Comment: Performed By: #### CBC, ADIF F, ANEU, BMP, GFR #### [address] [address] .neuabs on Neutrophils (Bld) 3.50 2.25-8.10 10 3/mcL Normal 01-21-2020 [facility] [#/Vol] [facility] ([place]) (00222) Comment: Performed By: #### CBC, ADIF F, ANEU, BMP, GFR #### [address] [address] .gfr on 2020-01-21 GFR Non- >60 Normal 01-20 [facility] ([place]) (11581) Comment: Result Comment: GFR Population mean for Afri can Irish, Non- Americans Ages 20-29 = 116 mL/min/1.73 [...] CBC, ADIF F, ANEU, BMP, GFR #### [address] [address] GFR >60 Normal 0 [facility] ([place]) (68005) Comment: Result Comment: GFR Population mean for Afri can Irish, Non- Americans Ages 20-29 = 116 mL/min/1.73 [...] F, ANEU, BMP, GFR #### [place] [address] .auto diff on 01-20 Ammonia (P) [Mass/Vol] 0.40 0.09-1.40 10 3/mcL Normal 020 [facility] ([place]) (26067) Comment: Performed By: #### CBC, ADIF F, ANEU, BMP, GFR #### [place] [address] Basophils (Bld) 0.00 0.00-0.27 10 3/mcL Normal 01-21-2020 [facility] [#/Vol] [facility] ([place]) (03564) Comment: Performed By: #### CBC, ADIF F, ANEU, BMP, GFR #### [address] [address] Basophils/100 WBC (Bld) 0.5 0.0-2.5 % Normal 2019 [facility] ([place]) (0000 0) Comment: Performed By: #### CBC, ADIF F, ANEU, BMP, GFR #### [address] [address] Eosinophils (Bld) 0.30 0.00-0.65 10 3/mcL Normal 01-21-2020 [facility] [#/Vol] [facility] ([place]) (75009) Comment: Performed By: #### CBC, ADIF F, ANEU, BMP, GFR #### [address] [address] Eosinophils/100 WBC (Bld) 5.4 0.0-6.0 % Normal 05-0 -2019 [facility] ([place]) (0000 0) Comment: Performed By: #### CBC, ADIF F, ANEU, BMP, GFR #### [address] [address] Lymphocytes (Bld) 2.00 0.90-4.32 10 3/mcL Normal 01-21-2020 [facility] [#/Vol] [facility] ([place]) (57522) Comment: Performed By: #### CBC, ADIF F, ANEU, BMP, GFR #### [address] [address] Lymphocytes/100 WBC (Bld) 32.4 20.0-40.0 % Normal - [facility] ([place]) (48859) Comment: Performed By: #### CBC, ADIF F, ANEU, BMP, GFR #### [address] [address] Monocytes/100 WBC (Bld) 6.1 2.0-13.0 % Normal 2019 [facility] ([place]) (0000 0) Comment: Performed By: #### CBC, ADIF F, ANEU, BMP, GFR #### [address] [address] Neutrophils/100 WBC (Bld) 55.6 50.0-75.0 % Normal 05-0 [facility] ([place]) (92444) Comment: Performed By: #### CBC, ADIF F, ANEU, BMP, GFR #### [address] [address] cnpn on 2020-01-20 CNPN Telephone (FAMPWS) Normal 01-20-2020 [facility] ABDIFATAHSALLY TORRES ([id number]) 1980 [facility] Date Time Provider Department (36511) 01/20/20 MARCELINO MEJIA During your visit today, we recorded the following informati on about you: Christopher Carcamo RN 01/20/2020 11:54 AM Signed Patient asking if Chaz Stroud, would sent AB Rx to [facility], for her bad tooth? Her dentist in [place] is not open. Has an appt with a dentist in [place] on . Has a wound on tongue [...] daily. Authorizing Provider: ISABEL ARIAS (MAYA) MAYA DELGADO LPN 01/20/2020 1:05 PM Signed Patient calling to check status of request. Aware rx to [facility]. Asked for directions to [facility] for her ultrasound appt, gave [...] four times daily. Encounter Status:Closed by MELANIE SWENSON LPN on 01/20/20 progress on 2020-01 PROGRESS HNO ID: [id number] Normal 01-16-2020 [facility] Author: Isabel Romero) Hugo Lara ([id number]) Service: ? Author Type: Physician Bus Analyst Type: Progress Notes Filed: 01/16/2020 1:43 PM Note Text: DISTANCE HEALTH VISIT This Team Access Model visit is a phone encounter. It requir ed patient-provider interaction for the medical decision making as documented below. No video was used for evaluation of this patient. Patient consents to visit. Patient location: Abraham Vargas is a 39 year old female seen [...] She c/o of daily. Attempted to call [facility] who had 1 visit with [...] negative As noted in HPI PHYSICAL EXAMINATION: [facility] 08/10/2006 Deferred physical exam as [...] testing. 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 In mean time will order stress testing [...] on phone with patient = 21-30 minutes cnpn on 2020[facility]) Normal 01-16-2020 [place] [facility] SALLY VARGAS ([id number]) 1980 [facility] Date Time Provider Department ([id number]) 01/16/20 [facility] During your visit today, we recorded the following informati on about you: Sallie Benitez LPN 01/16/2020 1:47 PM Addendum Sallie Benitez LPN 01/16/2020 1:47 PM Addendum Allergies As of Date: 01/16/2020 Noted Allergy Reaction ASA (SALICYLATES) 01/27/2011 14 - Other: See Comments Comments: ulcers CONTRAST DYE (IODINE) 05/17/2008 12 - Shortness of Breath FLAGYL (METRONIDAZOLE HCL) 03/11/2010 12 - Shortness of [place] th IBUPROFEN 06/18/2016 8 - GI Upset [...] Encounter Status:Closed by ISABEL WARE on 01/16/20 CNPN Telephone (FAMPWS) Normal 01-16-2020 [place] [facility] SALYL VARGAS ([id number]) 1980 F [place] Date Time Provider Department ([id number]) 01/16/20 [facility] During your visit today, we recorded the following informati on about you: Sallie Emmanuel HERNANDEZ 01/16/2020 10:54 AM Signed - ER Visit [...] and/or ibuprofen for pain. Follow-up with her [facility] care physician within the next 3 [...] Chest pain This note was generated with [employer] dictation software. It m ay contain incorrect [...] Encounter Status:Closed by ISABEL WARE on 01/16/20 cnpn on 2020-01-11 CNPN Telephone (FAMWS) Normal 01-11-2020 [place] [facility] SALLY VARGAS ([id number]) 1980 [facility] Date Time Provider Department ([id number]) 01/11/20 [facility] During your visit today, we recorded the following informati on about you: Yvette Taylor RN 01/11/2020 1:30 PM Signed Pt called, [...] (METRONIDAZOLE HCL) 03/11/2010 12 - Shortness of [place] th IBUPROFEN 06/18/2016 8 - GI Upset PENICILLINS 12/07/2009 2 - Rash PREDNISONE 06/18/2016 14 - Other: See Comments Comments: makes agitated and mean Date Reviewed: 01/02/2020 Reviewed by: Ashley Lehman Ma - Fully Assessed Reason for Visit: Patient Question [3687] Reason For Visit History Recorded Prescriptions as [...] on 2020-01-09 CNPN Telephone (FAMPWS) Normal 01-09-2020 [place] SALLY [id number]) 1980 [facility] Date Time Provider Department ([id number]) 01/09/20 ISABEL ARIAS) [facility] During your visit today, [...] when taken with s 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 See if she is willing to try this combination of vitam ins until she sees Dr. Saldana. Magnesium 250MG twice a day Vit B2 200mg twice a day. Fish oil 1000mg twice a day And a liter of water daily. This combination is something dr. mejia and I recommend to a lot of our headache/migraine sufferers and has [facility]. MAYA Delgado Ma 01/09/2020 11:49 AM Signed I spoke [...] Encounter Status:Closed by ISABEL WARE on 01/09/20 [facility]) Normal 01-09-2020 [place] SALLY Martinez ([id number]) 1980 [facility] Date Time Provider Department ([id number]) 01/09/20 [facility] During your visit today, we recorded the following informati on about you: Vitor Jenniferelizabeth DAVID 01/09/2020 1:19 PM Signed Pt returned [...] she called because she's not really thinking carmela . Marcelino Mejia MD 01/09/2020 1:31 PM Signed [...] gave her (20) norco and (20) flexeril. Patien t says she cannot take [place] because she is on ok Seroquel [...] dentist and she said no dentist in [facility] can see her because of her insurance . She tried [place] because they accepted her insurance but they [...] seen by ER or UC, then at [facility] they can see/check for signs of [...] gums swollen, patient ended c all. Valente Bruce Ma 01/09/2020 5:07 PM Signed I called patient and she was crying and upset. I gave her many options; told patient to contact oral surgeon; er to call her dentis t that does accept her insurance but she said they are closed until 01/30/2020. I told her dentist offices are reopening. She just keep repeating that she has called every dentist office in [place] and [place] and no one takes her insurance. She said she called her insurance and they told her the only one was the one in [place]. I told her if her infection is that bad she needs to go back to ER for further evaluation. Patient then just keep saying I have no way of getting there; no family can take her; she has no money to pay to get there. Patient ended call. I did call Dr. Evans's office oral surgeon [phone] and they are open from 8-3 after day to see patient's and [facility] [place]. They were currently closed but wanting to [...] * * *Final Report* * * Normal [facility] AP/LAT DATE OF EXAM: Jan 06 2020 12:58PM [place] ([id number]) WOX 5262 - XR THORACIC 2V AP/LAT / PROCEDURE REASON: Fall, initial encounter * * * * Physician Interpretation * * * * EXAM TITLE: XR THORACIC 2V AP/LAT DATE: 01/06/2020 COMPARISON: None. CLINICAL INDICATION/HISTORY: Back pain status post fall in s [place]. TECHNIQUE: AP and lateral views of the thoracic spine are pr esented. FINDINGS: No fractures or subluxations are noted. The disc spaces are well preserved. There is no paraspinal mass or delon destructive process. IMPRESSION: Negative thoracic spine. Superintendent Police: [facility] Transcribe Date/Time: Jan 06 2020 1:02P Dictated by : NIDA VILLALOBOS MD This examination was interpreted and the report reviewed and electronically signed by: NIDA VILLALOBOS MD on Jan 06 2020 1:07PM EST [id number] xr cervical 3v ap/lat/odon on 2020-01-06 XR CERVICAL 3V * * *Final Report* * * Normal [facility] AP/LAT/ODON DATE OF EXAM: Jan 06 2020 12:58PM [place] WOX 5309 - XR CERVICAL 3V AP/LAT/ODON / 3 ([id number]) PROCEDURE REASON: Fall, initial encounter * * [...] tissues are normal. IMPRESSION: Negative cervical spine. Superintendent Police: [facility] Transcribe Date/Time: Jan 06 2020 1:00P Dictated by : NIDA VILLALOBOS MD This examination was interpreted and the report reviewed and electronically signed by: NIDA VILLALOBOS MD on Jan 06 2020 1:04PM EST [id number] progress on 2019-12 PROGRESS HNO ID: [id number] Normal 01-06-2020 [facility] Author: Vianey Sanchez (Tech) [place] ([id number]) Service: ? Author Type: [employer] Paralegal Type: Progress Notes Filed: 01/06/2020 12:58 PM Note Text: Radiology Service Progress Note PATIENT NAME: Sally Vargas DATE OF SERVICE: January 06, 2020 TIME: [...] 12:43 PM cnpn on 2020-01-06 CNPN Telephone (ASHIAWS) Normal 01-06-2020 [place] [facility] SALLY VARGAS ([id number]) 1980 [facility] Date Time Provider Department ([id number]) 01/06/20 MARCELINO [facility]IAWS During your visit today, we recorded the following informati on about you: Deepa Salvador LPN, DAVID 01/06/2020 11:41 AM Signed Pt calls states fell a day ago and went to [facility] they gave h er 10 vicodin, [...] of neck and upper back ordered. MAYA Delgado Ma 01/06/2020 12:09 PM Signed Patient notified [...] encounter [W19.XXXA] Order(s):XR THORACIC LIMITED 2V AP/LAT [[id number]] Order #: [id number] FUTURE XR CERV INJURY 3V AP/LAT/ODON [[id number]] Order #: [id number] FUTURE Prescriptions as of 01/06/2020 Sig: SERTRALINE [...] Status:Closed by BRANDEN SANDERS MA on 01/06/20 CNPN Telephone (FAMWS) Normal 01-06-2020 [place] [facility] SALLY VARGAS ([id number]) [address] [facility] Time Provider Department ([id number]) 01/06/20 MARCELINO MEJIA During your visit today, we recorded the following informati on about you: Vitor Yvonne HERNANDEZ 01/06/2020 2:13 PM Signed Pt calls requesting [...] and very light stretching. Roxanne Patel MA, DARRYN 01/06/2020 2:25 PM Signed Patient informed of [...] 01/06/20 progress on 2019-12 PROGRESS HNO ID: [id number] Normal 01-05-2020 [facility] Author: Isabel Romero) Hugo Lara ([id number]) Service: ? Author Type: Physician Bus Analyst Type: Progress Notes Filed: 01/05/2020 8:07 AM Note Text: DISTANCE HEALTH VISIT This Team Access Model visit is a phone encounter. It requir ed patient-provider interaction for the medical decision making as documented below. No video was used for evaluation of this patient. Patient consents to visit. Patient location: Abraham Vargas is a 39 year old female seen [...] to cancel due to no r kostas. [facility] has appointment rescheduled on january 19. [...] minutes progress on 2019-12 PROGRESS HNO ID: [id number] Normal 01-02-2020 [facility] Author: Marie Mary) [facility] ([id number]) Service: ? Author Type: Nurse Practitioner Type: Progress Notes Filed: 01/02/2020 5:12 PM Note Text: Subjective HPI HPI Sally Vargas is a 39 year old female who presents tod ay for CC of broken tooth, now pain. This started 4 days ago. Has tried o tc medication. Symptoms are worsened by chewing. Risk factors h x of poor dental health. .Patient presents with: Toothache: x 4 days PAST MEDICAL HISTORY Diagnosis Date - Allergic rhinitis, cause unspecified 05/17/2008 Spring and summer - Benign liver cyst 05/24/2010 CT scan at [facility] 11/2009 and 04/2010 showe 4 mm increase in size . No pain. No elevated LFTs on 03/11/2010. - Calculus of kidney 05/17/[address] Nicolas: Hospitalized age 20, and again later -- no procedures so far ([facility], [place], [facility]) - Dysmenorrhea - Impaired fasting glucose [...] Approx. 3 cigarettes daily-1 pack every w [place] and [place] Substance Use Topics - Alcohol use: Yes [...] 300 MG CAPSULE Agrees to plan Marie Pinedo APRN.CNP cnov on 2020-01-02 CNOV Office Visit (UCWSTR) Normal 01-02-20 [place] SALLY Martinez ([id number]) 1980 [facility] Date Time Provider Department ([id number]) 01/02/20 2:45 PM MARIE PINEDO (MANUELITO) [facility] During your visit today, we recorded the following informati on about you: Temperature Pulse Respiration Blood pressure 98.4 degrees 110/minute 16/minute 138/88 Weight 89.4 kg Marie Pinedo APRN.CNP 01/02/2020 5:12 PM Signed Subjective HPI HPI Sally Vargas is a 39 year old female who [...] Benign liver cyst 05/24/2010 CT scan at [facility] 11/2009 and 04/2010 showe 4 mm increase in size . No pain. No elevated LFTs on 03/11/2010. - Calculus of kidney 05/17/[address] Nicolas: Hospitalized age 20, a nd again later -- no procedures so far ([facility], [facility], [facility]) - Dysmenorrhea - Impaired fasting glucose [...] removed - TOTAL ABDOM HYSTERECTOMY 08/31/06 Hysterectomy, [facility] ALLERGIES [place] [Salicylates]; Contrast Dye [Iodine]; Flagyl [...] Approx. 3 cigarettes daily-1 pack every w [place] and [place] tribes Substance Use Topics - Alcohol use: Yes [...] 300 MG CAPSULE Agrees to plan Marie Pinedo APRN.NURSE SANE Referring Provider: SELF [200] Allergies As of [...] for 10 days. Encounter Status:Closed by MARIE PINEDO CNP on 01/02/20 cnpn on 2019-12-23 [facility] Normal 12-23-2019 [place] [facility] SALLY VARGAS ([id number]) 1980 F [place] Date Time Provider Department ([id number]) 12/23/19 ISABEL ARIAS) [facility] During your visit today, [...] not helping cough. Please advise and call [phone]. [facility] ISABEL ARIAS PA-C 12/23/2019 1:02 PM Signed Recommend continued symptomatic care. Xr ay was normal so no pneumonia or signs of bronchitis. Cough can be post infectious which takes time to resolve. Finish the prednisone and use OTC cough medication. If signif icantly worsening over weekend, go to ER. MAYA Delgado Ma 12/23/2019 1:18 PM Signed Patient notified [...] mean Date Reviewed: 12/21/2019 Reviewed by: Isabel (Pa-C) Arias - Fully Assessed Reason for Visit: Cough [...] * *Final Report* * * Normal 12-21 [facility] FRONTAL/LAT DATE OF EXAM: Dec 22 2019 9:28AM [place] WOX 5291 - XR CHEST 2V FRONTAL/LAT / ([id number]) PROCEDURE REASON: multiple diagnoses * * * [...] clips noted. IMPRESSION: No acute radiographic abnormality. Superintendent Police: [employer] Transcribe Date/Time: Dec 22 2019 9:29A Dictated by : NIDA VILLALOBOS MD This examination was interpreted and the report reviewed and electronically signed by: NIDA VILLALOBOS MD on Dec 22 2019 9:51AM EST [id number] progress on 2019-12 PROGRESS HNO ID: [id number] Normal 12-22-2019 [facility] Author: Vianey Roman (Rt) [place] ([id number]) Service: ? Author Type: [employer] Paralegal Type: Progress Notes Filed: 12/22/2019 9:28 AM Note Text: Radiology Service Progress Note PATIENT NAME: Sally Vargas DATE OF SERVICE: December 22, 2019 TIME: [...] 22, 2019 9:18 AM cnpn on 2019-12-22 [facility] ([facility]) Normal 12-22-2019 [place] [facility] SALLY VARGAS ([id number]) [address] [facility] Time Provider Department ([id number]) 12/22/19 [facility] During your visit today, we recorded the following informati on about you: ISABEL ARIAS PA-C 12/22/2019 9:56 AM Signed Let patient know that xray is negative. Recommend cont inuing as we discussed yesterday. MAYA Delgado Dope Weigh Operator 12/22/2019 10:42 AM Signed Patient notified and verbalized understanding Ashley Mcfarland Dope Weigh Operator Allergies As of Date: 12/22/2019 Noted [...] 12/22/19 progress on 2019-12 PROGRESS HNO ID: [id number] Normal 12-21-2019 [facility] Author: Isabel Romero) Hugo Lara ([id number]) Service: ? Author Type: Physician Bus Analyst Type: Progress Notes Filed: 12/21/2019 12:48 PM Note Text: DISTANCE HEALTH VISIT This Team Access Model visit is a phone encounter. It requir ed patient-provider interaction for the medical decision making as documented below. No video was used for evaluation of this patient. Patient consents to visit. Patient location: Abraham Vargas is a 39 year old female seen [...] on phone with patient = 5-10 minutes cnpn on 2019-12-15 CNPN Telephone (FAMPWS) Normal 12-15-2019 [place] [facility] SALLY VARGAS ([id number]) 1980 [facility] Date Time Provider Department ([id number]) 12/15/19 ISABEL ARIAS) [facility] During your visit today, we recorded the following informati on about you: Melanie Swenson OUTSIDE MACHINIST HELPER 12/15/2019 11:15 AM Signed Patient calling every time takes the [place] zonatate she gets nauseated, asking if could have zofran or phenergan rx? Patient said the pe rles help she does not cough, she tries eating first and still makes her nauseated. Patient uses [facility] for her pharmacy. Please advise ISABEL ARIAS PA-C 12/15/2019 12:16 PM Signed zofran sent to pharm Milka Villarreal MA 12/15/2019 2:12 PM Signed Pt notified. Cough doing better with medication. Milka Villarreal MA Allergies As of Date: 12/15/2019 Noted [...] Arias - Fully Assessed Reason for Visit: benzonatate [...] for Naus ea/Vomiting. Encounter Status:Closed by MILKA VILLARREAL MA on 12/15/19 [facility] Normal 12-14-2019 [place] [facility] SALLY VARGAS ([id number]) 1980 [facility] Date Time Provider Department ([id number]) 12/14/19 ISABEL ARIAS (MAYA) [facility] During your visit today, we recorded the following informati on about you: Gale Fuentes LPN 12/14/2019 10:15 AM Signed Patient took 1 dose of Robitussin AC, di d help suppress cough but developed an itchy/rash. Asking if something else can be called in to [facility]. Patient uses [facility]. Please notify Patient. Gale ARIAS PA-C 12/14/2019 10:32 AM Signed I will send in alysha zamora and otherwise she can take OTC cough medication. MAYA Delgado Ma 12/14/2019 11:33 AM Signed Left detailed [...] on 12/14/19 CNPN Telephone (FAMPWS) Normal 12-14-2019 [place] [facility] SALLY VARGAS ([id number]) 1980 [facility] Date Time Provider Department ([id number]) 12/14/19 ISABEL ARIAS) [facility] During your visit today, we recorded the following informati on about you: Yvette Taylor RN 12/14/2019 11:35 AM Signed Pt called, [...] verbalized unde rstanding and state that medication CHAZ sent is already helping Branden Sanders Ma Allergies As of Date: 12/14/2019 Noted Allergy Reaction ASA (SALICYLATES) 01/27/2011 14 - Other: See Comments Comments: ulcers CONTRAST DYE (IODINE) 05/17/2008 12 - Shortness of Breath FLAGYL (METRONIDAZOLE HCL) 03/11/2010 12 - Shortness of [place] th IBUPROFEN 06/18/2016 8 - GI Upset PENICILLINS 12/07/2009 2 - Rash PREDNISONE 06/18/2016 14 - Other: See Comments Comments: makes agitated and mean Date Reviewed: 11/24/2019 Reviewed by: Jay) Hugo - Fully Assessed Reason for Visit: Patient [...] 12/14/19 progress on 2019-11 PROGRESS HNO ID: [id number] Normal 12-13-2019 [facility] Author: Isabel (PaRex) Hugo Lara ([id number]) Service: ? Author Type: Physician Bus Analyst Type: Progress Notes Filed: 12/13/2019 10:36 AM [...] Benign liver cyst 05/24/2010 CT scan at [facility] 11/2009 and 04/2010 showe 4 mm increase in size . No pain. No elevated LFTs on 03/11/2010. - Calculus of kidney 05/17/[address] Nicolas: Hospitalized age 20, and again later -- no procedures so far ([facility], [facility], [facility]) - Dysmenorrhea - Impaired fasting glucose [...] Approx. 3 cigarettes daily-1 pack every w [place] and [place] tribes Substance Use Topics - Alcohol use: Yes [...] (COVID-19). emergency report on 2019-11-26 EMERGENCY REPORT [facility] Normal 11-25 [facility] EMERGENCY ROOM REPORT ([id number]) NAME ACCOUNT SEX AGE ADMIT DISCHARGE PT MED. RECORD# NUMBER DATE DATE HIEU VARGAS [id number] Donato 39 11/24/19 11/25/19 [place] ZHENG [id number] ROOM: ER DATE OF : 1980 DICTATING PHYSICIAN: Ana Rodriguez HISTORY OF PRESENT ILLNESS: This patient is [...] the patient Page 1 of 2 SALLY VARGAS Emergency Room Report SALLY VARGAS : 1980 that there was an incidental [...] review of her constipation regimen at [facility]. She verbalized understanding of the informa tion given and agreed to plan. She was discharged in stable condition. Dictated By: Ana Rodriguez MD 11/25/19 05:37 JOB #: [id number] Transcribed By: nallely 11/25/19 22:11 Electronically signed by: Jennifer Perez MD 11/25/19 22:39 Page 2 of 2 SALLY VARGAS Emergency Room Report urinalysis with microscopy on 2019-11-25 Amorphous NONE Normal 11-25-2019 [facility] ([id number]) Comment: Performed By: #### [id number] ## ## [facility],[address] [place] [address] 20218 Bacteria LM.HPF (Urine sed) 4+ Normal [facility] [#/Area] [facility] ( 88484) Comment: Performed By: #### [id number] ## ## [facility],[address] [place] [address] 70428 Bilirubin [Mass/Vol] NEG NORMAL: NEGATIVE mg/dL Normal [facility]ital (46525) Comment: Performed By: #### [id number] ## ## [facility],[address] [place] [address] 12511 Blood 10 NORMAL: NEGATIVE Abnormal 11-25-2019 [facility] (88904) Comment: Performed By: #### [id number] ## ## [facility],[address] [place] [address] 18396 Casts LM.LPF (Urine sed) NONE Normal 11-24 [facility] [/Area] [facility] ( 91739) Comment: Performed By: #### [id number] ## ## [facility],[address] [place] [address] 19047 Clarity (U) sl.cloudy NORMAL: CLEAR Normal 11-25-[address] [facility] ( 67392) Comment: Performed By: #### [id number] ## ## [facility],[address] [place] [address] 39910 Color (U) p.yel NORMAL: YELLOW Normal 11-25-2019 [facility] (29746) Comment: Performed By: #### [id number] ## ## [facility],[address] [place] [address] 18312 Crystals LM Nom (Urine sed) NONE Normal [facility] ( 55859) Comment: Performed By: #### [id number] ## ## [facility],[address] [place] [address] 34925 Epi Cells MANY Normal 11-25-2019 [facility] (62002) Comment: Performed By: #### [id number] ## ## [facility],[address] [place] [address] 65953 Glucose [Mass/Vol] NORM NORMAL: NORMAL Normal 2019 [facility] ( 43921) Comment: Performed By: #### [id number] ## ## [facility],[address] [place] [address] 10831 Ketone NEG NORMAL: NEGATIVE Normal 11-25-2019 [facility] (73425) Comment: Performed By: #### [id number] ## ## [facility],[address] [place] [address] 74479 Mucous NONE Normal 11-25-2019 [facility] (91791) Comment: Performed By: #### [id number] ## ## [facility],[address] [place] [address] 15100 Nitrite Ql (U) NEG NORMAL: NEGATIVE Normal 11-25-19 20 [facility] ( 38568) Comment: Performed By: #### [id number] ## ## [facility],[address] [place] [address] 77300 pH (Bld) 5 NORMAL: 5.0-8.0 Normal 11-25-[address] [facility] (41836) Comment: Performed By: #### [id number] ## ## [facility],[address] [place] [address] 26825 Protein (U) NEG NORMAL: NEGATIVE mg/dL Normal 11-25-2019 [facility] [Mass/Vol] [facility] (57877) Comment: Performed By: #### [id number] ## ## [facility],[address] [place] [address] 73044 Rbc 0-5 0-3 / hpf Normal 11-25-2019 [facility] (13837) Comment: Performed By: #### [id number] ## ## [facility],[address] [place] [address] 91676 Sp Leon 1.010 NORMAL: 1.010-1.030 Normal 0 [facility] ( 45609) Comment: Performed By: #### [id number] ## ## [facility],[address] [place] [address] 23493 Specimen type Nom (Spec) UNSPECIFIED Normal [facility] ( 74674) Comment: Performed By: #### [id number] ## ## [facility],[address] [place] [address] 69581 URINALYSIS WITH MICROSCOPY Normal [facility] (46834) Comment: Result Comment: URINALYSIS Performed By: #### [id number] ## ## [facility],[address] [facility] [address]604 Urobilinog NORM NORMAL: NORMAL Normal 11-25-[address] [facility] (95436) Comment: Performed By: #### [id number] ## ## [facility],[address] [facility] 15699 Wbc 1-5 0-5 / hpf Normal 11-25-2019 [facility] (61450) Comment: Performed By: #### [id number] ## ## [facility],[address] [place] [address] 40003 WBC (Bld) [#/Vol] 25 NORMAL: NEGATIVE Abnormal 11-24 [facility] ( 62321) Comment: Result Comment: URINE MICROS COPIC Performed By: #### [id number] ## ## [facility],[address] [place] [address] 06907 Yeast LM Ql (Urine sed) NONE Normal 2019 [facility] (77547) Comment: Performed By: #### [id number] ## ## [facility],[address] [place] [address] 69106 lipase on 2019-11-13 3 Lipase [Catalytic 34.0 18.0 - 51.0 U/L Normal 11-25-2019 [facility] activity/Vol] [facility] (45174) Comment: Performed By: #### [id number] ## ## [facility],[address] [place] [address] 65019 lactate on Lactate [Moles/Vol] 0.9 0.5 - 2.0 mmol/L Normal 11-25-2019 [facility] ( 73692) Comment: Performed By: #### [id number] ## ## [facility],[address] [place] [address] abdomen/pelvis wo on 2019-11-25 CT ABDOMEN/PELVIS [facility] Normal 0 11-25-2019 [facility] ospital [address] [address] ([id number]) Patient: SALLY VARGAS Phone#: : 1980 Age: 39 Gender: F Pt. Type: ER Account: [id number] Location: 2 Ordering: DR. ANA RODRIGUEZ Exam Date: 11/25/2019/0:04 Family Phys: ISABEL ARIAS Charge Code: [id number] Physician: [place] Order #: [id number] DLP Dose#: PROCEDURE: CT ABDOMEN/PELVIS WITHOUT CONTRAST COMPARISON: [facility], CT, ABDOMEN/PELVIS W/O CON, 03/22/2019, 16:41. INDICATIONS: Abdominal Pain TECHNIQUE: CT images were created without intravenous contra st. All CT scans at this facilit y [...] - Page 2 of 2 Patient: SALLY VARGAS Phone#: : 1980 Age: 39 Gender: F Pt. Type: ER Account: [id number] Location: 052 Ordering: DR. ANA RODRIGUEZ Exam Date: 11/25/2019/0:04 Family Phys: ISABEL ARIAS Charge Code: [id number] Physician: [place] Order #: [id number] DLP Dose#: ABDOMINAL WALL: There is a [...] on 11/25/2019 at 10:46 cnpn on 2019[facility]) Normal 11-25-2019 [facility] SALLY VARGAS ([id number]) [address] [facility] Time Provider Department (00413) 11/25/19 [facility] During your visit today, we recorded the following informati on about you: ISABEL ARIAS PA-C 11/25/2019 7:50 AM Signed Let patient know that her WB C is back to normal. Continue as discussed for now. MAYA Delgado Ma 11/25/2019 9:58 AM Signed Attempted to [...] Hugo - Fully Assessed Reason for Visit: Results [...] Age - Reported 39 years Normal 11-25-2019 [facility] (95698) Comment: Performed By: #### [id number] ## ## [address] [address] Albumin [Mass/Vol] 4.5 3.4 - 4.8 g/dL Normal 11-25-2019 [facility] ( 82626) Comment: Performed By: #### [id number] ## ## [facility],[address] [place] [address] 26313 Albumin/Globulin [Mass 1.3 0.9 - 1.6 {ratio} Normal 020 [facility]] [facility] (79912) Comment: Performed By: #### [id number] ## ## [facility],[address] [facility] [address] ALK PHOS 93 38 - 126 U/L Normal 11-25-2019 [facility] (79693) Comment: Performed By: #### [id number] ## ## [facility],[address] [facility] [address] ALT/SGPT 10 8 - 35 U/L Normal 11-25-2019 [facility] (15024) Comment: Performed By: #### [id number] ## ## [facility],[address] [facility] [address] Anion gap [Moles/Vol] 13 10 - 20 mmol/L Normal 11-25-19 20 [facility] ( 00619) Comment: Performed By: #### [id number] ## ## [facility],[address] [facility] [address] AST/SGOT 9 13 - 39 U/L Low 11-25-2019 [facility] (33699) Comment: Performed By: #### [id number] ## ## [facility],[address] [place] [address] 29399 B/C RATIO 17 0 - 30 ratio Normal 11-25-2019 [facility] (46792) Comment: Performed By: #### [id number] ## ## [facility],[address] [facility] [address] Bilirubin [Mass/Vol] 0.4 0.0 - 1.5 mg/dl Normal 0 [facility] ( 26072) Comment: Performed By: #### [id number] ## ## [facility],[address],[place] [address] Calcium [Mass/Vol] 9.9 8.6 - 10.2 mg/dl Normal 11-25-2019 [facility] ( 79457) Comment: Performed By: #### [id number] ## ## [facility],[address] [facility] [address] Chloride [Moles/Vol] 103 98 - 107 mmol/L Normal 0 [facility] ( 79111) Comment: Performed By: #### [id number] ## ## [facility],[address] [facility] [address] CO2 [Moles/Vol] 24.9 21.0 - 31.0 mmol/L Normal 11-25-2019 [facility] ( 46369) Comment: Performed By: #### [id number] ## ## [facility],[address] [place] [address]233 Creatinine [Mass/Vol] 1.0 0.6 - 1.2 mg/dl Normal 11-25-19 20 [facility] ( 77774) Comment: Performed By: #### [id number] ## ## [facility],[address] [place] [address] 18520 GFR/1.73 sq M predicted among Normal 11-25-2019 [facility] non-blacks MDRD (S/P/Bld) [Vol Hospital (30313) rate/Area] Comment: Result Comment: COMPREHENSIV E METABOLIC PANEL Performed By: #### [id number] ## ## [facility],[address] [place] [address]80 GFR/1.73 sq M >60 60 - 999 mL/min/{1.73_m2} Normal 0 [facility] predicted among [facility] non-blacks MDRD (000 00) (S/P/Bld) [Vol rate/Area] Comment: Performed By: #### [id number] ## ## [facility],[address] [place] [address] Result Comment: ACCORDING TO THE NATIONAL KIDNEY DISEASE EDUCATION PROGRAM(NKDE), A NORMAL eGFR IS A VALUE GREATER THAN OR E QUAL TO 60 ML/MIN/1.73 SQ METERS. CHRONIC KIDNEY DISEASE: <60m L/MIN/1.73 SQ METERS KIDNEY FAILURE: <15mL/MIN/1. 73 SQ METERS THIS TEST SHOULD ONLY BE USE D FOR PATIENTS 18 YEARS OF AGE AND OLDER. Globulin (S) [Mass/Vol] 3.5 1.5 - 3.8 G/DL Normal 2019 [facility] ( 96547) Comment: Performed By: #### [id number] ## ## [facility],[address] [place] [address]6077 Glucose [Mass/Vol] 123 74 - 106 mg/dl High 11-25-2019 [facility] (48748) Comment: Performed By: #### [id number] ## ## [facility],[address] [place] [address] 00196 Potassium [Moles/Vol] 3.6 3.5 - 5.1 mmol/L Normal 11-25-19 [facility] ( 81435) Comment: Performed By: #### [id number] ## ## [facility],[address] [place] [address] [place] [address] Protein [Mass/Vol] 8.0 6.4 - 8.3 g/dl Normal 11-25-2019 [facility] ( 37462) Comment: Performed By: #### [id number] ## ## [facility],[address] [place] [address] 42865 Sodium [Moles/Vol] 137 136 - 145 mmol/l Normal 11-25-2019 [facility] ( 52646) Comment: Performed By: #### [id number] ## ## [facility],[address] [place] [address] 45742 Urea nitrogen [Mass/Vol] 17 6 - 20 mg/dl Normal 11-24 [facility] ( 51556) Comment: Performed By: #### [id number] ## ## [facility],[address] [place], [place] [id number] chest 2 views on 20 01-12-12 CHEST 2 VIEWS [facility] Normal 11-25-19 [facility] H ospital [address] [place] [address] ([address]) Patient: SALLY VARGAS Phone#: : 1980 Age: 39 Gender: F Pt. Type: ER Account: [id number] Location: [facility] Ordering: DR. ANA RODRIGUEZ Exam Date: 11/25/2019/0:08 Family Phys: ISABEL ARIAS Charge Code: [id number] Physician: [place] Order #: [id number] DLP Dose#: PROCEDURE: X-RAY CHEST 2 VIEWS COMPARISON: [facility], XR, CHEST PA/LAT, 05/12/2017, 16:14. [...] on 11-24 CELL COUNT 100 Normal 11-25-2019 [facility] (03968) Comment: Performed By: #### [id number] ## ## [facility],[address] [place], [place] [id number] EO 1.0 0.0 - 4.0 % Normal 11-25-2019 [facility] (45287) Comment: Performed By: #### [id number] ## ## [facility],[address] [place] [address] SEGS 59 50 - 70 % Normal 11-25-2019 [facility] (92112) Comment: Performed By: #### [id number] ## ## [facility],[address] [place] [address] 86060 CBC + DIFF Normal 11-25-2019 [facility] (80382) Comment: Result Comment: CBC-COMPLETE BLOOD COUNT Performed By: #### [id number] ## ## [facility],[address] [place] [address] 08457 Erythrocyte distribution 13.4 12.0 - 15.6 % Normal [facility] (RBC) [Ratio] Hospital (37937) Comment: Performed By: #### [id number] ## ## [facility],[address] [place] [address] 81020 Hematocrit (Bld) [Volume 32.5 34.0 - 46.0 % Low [facility] fraction] [facility] ( 63449) Comment: Performed By: #### [id number] ## ## [facility],[address] [place] [address] 28767 Hemoglobin (Bld) 11.4 12.0 - 16.0 g/dl Low 11-25-2019 [facility] [Mass/Vol] [facility] (23317) Comment: Performed By: #### [id number] ## ## [facility],[address] [place] [address] 52211 Lymphocytes/100 WBC (Bld) 40 20 - 40 % Normal 11-12 [facility] ( 97072) Comment: Performed By: #### [id number] ## ## [facility],[address] [place] [address] 53565 MANUAL DIFF SEE BELOW Normal 11-25-2019 [facility] (79846) Comment: Performed By: #### [id number] ## ## [facility],[address] [place] [address] 27232 MCH (RBC) [Entitic mass] 31 27 - 33 pg Normal 11-24 [facility] ( 56857) Comment: Performed By: #### [id number] ## ## [facility],[address] [place] [address] 70333 MCHC (RBC) [Mass/Vol] 35 32 - 36 X10 3 Normal 11-25-19 20 [facility] ( 98850) Comment: Performed By: #### [id number] ## ## [facility],[address] [place] [address] 77704 MCV (RBC) [Entitic vol] 88 80 - 99 fl Normal 2019 [facility] ( 67258) Comment: Performed By: #### [id number] ## ## [facility],[address] [place] [address] 23695 Morphology Adrian (Bld) REVIEWED Normal 0 [facility] [Inter] [facility] ( 41138) Comment: Performed By: #### [id number] ## ## [facility],[address] [place] [address] 18604 Platelet mean volume 9.1 6.6 - 10.5 fl Normal 11-25-19 20 [facility] ([facility]) [Entitic vol] [facility] (31743) Comment: Result Comment: AUTOMATED DI FFERENTIAL Performed By: #### [id number] ## ## [facility],[address] [place] [address] 36737 Platelets (Bld) 268 150 - 450 x10EE3/UL Normal 11-25-2019 [facility] [#/Vol] [facility] (85750) Comment: Performed By: #### [id number] ## ## [facility],[address] [place] [address] 91302 RBC (Bld) [#/Vol] 3.69 4.10 - 5.30 x 10EE6/UL Low 0 [facility] ( 56296) Comment: Performed By: #### [id number] ## ## [facility],[address] [facility] [address] WBC (Bld) [#/Vol] 11.4 4.5 - 10.8 x 10EE3/UL High 11-25-2019 [facility] ( 16658) Comment: Performed By: #### [id number] ## ## [facility],[address] [facility] [address] tsh on 2019-11-24 TSH Qn 3.920 0.270-4.200 uU/mL Normal 11-24-2019 [facility] (43219) Comment: Result Comment: If the patie nt is , TSH reference range varies by gestational period: First Trimester (weeks 9-12) : 0.180-2.990 mcIU/mL Second Trimester: 0.110-3.98 0 mcIU/mL Third Trimester: 0.480-4.710 mcIU/mL Leander Hills, et al. A Practica l Approach for the Verifications and Determination of Site- and Trimester-Specific Reference Intervals for Thyroid Function tests in . Thyroid, 2019:29:3:412-420. Al laurel E, et al. 2017 Guide lines of the [place] Thyroid Association for the Diagnosis and Management of Thyroid Disease during and the . Thyroid, 2017:27:3:315-389. Performed By: #### TSH, CBCD IF, CMP #### [facility] [address] [address] troponin t on 11-23 Troponin T.cardiac Test sent to 0.000-0.029 Normal 2019 [facility] [Mass/Vol] [facility] (23091) [facility]. Comment: Result Comment: Account Cred ited HIDE progress on 2019-11 PROGRESS HNO ID: [id number] Normal 11-24-2019 [facility] Author: Jay) Hugo Lara ([id number]) Service: ? Author Type: Physician Bus Analyst Type: Progress Notes Filed: 11/24/2019 9:33 AM [...] Benign liver cyst 05/24/2010 CT scan at [facility] 11/2009 and 04/2010 showe 4 mm increase in size . No pain. No elevated LFTs on 03/11/2010. - Calculus of kidney 05/17/[address] Nicolas: Hospitalized age 20, and again later -- no procedures so far ([facility], [facility], 1995 [facility]) - Dysmenorrhea - Impaired fasting glucose [...] Approx. 3 cigarettes daily-1 pack every w [place] Substance Use Topics - Alcohol use: Yes [...] dimer on D dimer Test sent to [place] <500 Normal 0 [facility]. (42540) Comment: Result Comment: Account Cred ited HIDE comp metabolic panel on 2019-11-24 Albumin [Mass/Vol] 4.4 3.9-4.9 g/dL Normal 11-24-2019 [facility] (63617) Comment: Performed By: #### TSH, CBCD IF, CMP #### [facility] [address], [place] [id number] ALP [Catalytic activity/Vol] 105 34-123 U/L Normal 0 11-24-2019 [facility] (80754) Comment: Performed By: #### TSH, CBCD IF, CMP #### [facility] [address] [place], [place] [address] ALT [Catalytic activity/Vol] 6 7-38 U/L Low 0 11-24-2019 [facility] (18759) Comment: Performed By: #### TSH, CBCD IF, CMP #### [facility] [address] [place], [place] [address] Anion gap [Moles/Vol] 12 9-18 mmol/L Normal 11-24-19 20 [facility] (16707) Comment: Performed By: #### TSH, CBCD IF, CMP #### [facility] [address] [place], [place] [address] AST [Catalytic activity/Vol] 14 13-35 U/L Normal 0 11-24-2019 [facility] (90867) Comment: Performed By: #### TSH, CBCD IF, CMP #### [facility] [address] [place], [place] [address] Bilirubin [Mass/Vol] 0.4 0.2-1.3 mg/dL Normal 0 [facility] (46539) Comment: Performed By: #### TSH, CBCD IF, CMP #### [facility] [address] [place], [place] [address] Calcium [Mass/Vol] 9.9 8.5-10.2 mg/dL Normal 11-24-2019 [facility] (61814) Comment: Performed By: #### TSH, CBCD IF, CMP #### [facility] [address] [place], [place] [address] Chloride [Moles/Vol] 101 97-105 mmol/L Normal 0 [facility] (73430) Comment: Performed By: #### TSH, CBCD IF, CMP #### [facility] [address] [place], [place] [address] CO2 [Moles/Vol] 23 22-30 mmol/L Normal 11-24-2019 [facility] (11457) Comment: Performed By: #### TSH, CBCD IF, CMP #### [facility] [address] [place], [place] [address] Creatinine [Mass/Vol] 0.93 0.58-0.96 mg/dL Normal 11-24-19 20 [facility] (67674) Comment: Performed By: #### TSH, CBCD IF, CMP #### [facility] [address] [place], [place] [address] eGFR- Amer. >60 Normal 11-24-2019 [facility] (86869) Comment: Performed By: #### TSH, CBCD IF, CMP #### [facility] [address] [place], [place] [address] GFR/1.73 sq M predicted >60 mL/min/{1.73_m2} Normal 11-24-2019 [facility] among non-blacks MDRD [place] (25589) (S/P/Bld) [Vol rate/Area] Comment: Result Comment: eGFR [...] Performed By: #### TSH, CBCD IF, CMP #### [facility] [address], [place] [address] Glucose [Mass/Vol] 98 74-99 mg/dL Normal 11-24-2019 [facility] (47796) Comment: Result Comment: The [place] Diabetes Association (ADA) provides guidance for cutoff [...] for diagnosis of diabetes. Reference: Standards of [facility] Care in Diabetes 2016, [place] Diabetes Association. Diabetes Care. 2016.39(Suppl 1). Performed By: #### TSH, CBCD IF, CMP #### [facility] [address] [place], [place] [address] Potassium [Moles/Vol] 4.1 3.7-5.1 mmol/L Normal 11-24-19 [facility] (32704) Comment: Performed By: #### TSH, CBCD IF, CMP #### [facility] [address] [place], [place] [address] Protein [Mass/Vol] 7.6 6.3-8.0 g/dL Normal 11-24-2019 [facility] (66071) Comment: Performed By: #### TSH, CBCD IF, CMP #### [facility] [address] [place], [place] [address] Sodium [Moles/Vol] 136 136-144 mmol/L Normal 11-24-2019 [facility] (91644) Comment: Performed By: #### TSH, CBCD IF, CMP #### [facility] [address] [place], [place] [address] Urea nitrogen [Mass/Vol] 21 7-21 mg/dL Normal 11-23 [facility] (35447) Comment: Performed By: #### TSH, CBCD IF, CMP #### [facility] [address] [place], [place] [address] cnpn on 2019-11-24 [facility] Normal 11-24-2019 [facility] SALLY VARGAS ([id number]) 1980 [facility] Date Time Provider Department (21309) 11/24/19 [facility] During your visit today, we recorded the following informati on about you: Yvette Taylor RN 11/24/2019 12:00 PM Signed Aidee from [facility] lab called, verified pt by name and date of . Aidee has critical high d-dimer of 1.14. result verified by read back. Please advise Yvette ARIAS PA-C 11/24/2019 12:13 PM Signed Noted. Patient has already been evaluated for clot by ER. D- dime likely elevated due to current infection. Please ask lab to cancel the CMP and TSH. Only lab I need right now is the CBC. MAYA Delgado Ma 11/24/2019 4:00 PM Signed Lab notified. Valente Bruce Ma Allergies As of Date: 11/24/2019 Noted Allergy Reaction ASA (SALICYLATES) 01/27/2011 14 - Other: See Comments Comments: ulcers CONTRAST DYE (IODINE) 05/17/2008 12 - Shortness of Breath FLAGYL (METRONIDAZOLE HCL) 03/11/2010 12 - Shortness of [place] th IBUPROFEN 06/18/2016 8 - GI Upset PENICILLINS 12/07/2009 2 - Rash PREDNISONE 06/18/2016 14 - Other: See Comments Comments: makes agitated and mean Date Reviewed: 11/24/2019 Reviewed by: Jay) Hugo - Fully Assessed Reason for Visit: Critical [...] VALENTE BRUCE MA on 11/24/19 CNPN Telephone (FAMWS) Normal 11-24-2019 [place] [facility] ([id number]) 1980 F [place] Date Time Provider Department (80428) 11/24/19 [facility] During your visit today, we recorded the following informati on about you: Yvette Taylor RN 11/24/2019 3:23 PM Signed Pt called, [...] is onl y under doctor for the dates states in the letter. 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 If so please fax to [employer] fax [phone]. ISABEL ARIAS PA-C 11/24/2019 1:00 PM Signed Letter ready. MAYA Delgado Ma 11/24/2019 3:11 PM Signed Faxed letter. refaxed Dr. Saldana info. Valente Bruce Ma Allergies As of Date: [...] Status:Closed by VALENTE BRUCE MA on 11/24/19 cnsyed on 2019-11-24 CNOV Office Visit (FAMPWS) Normal 11-24-19 [facility] SALLY VARGAS ([id number]) 1980 F [place] Date Time Provider Department (39332) 11/24/19 9:20 AM JAY ARIAS) RAMA During your visit today, we [...] Benign liver cyst 05/24/2010 CT scan at [facility] 11/2009 and 04/2010 showe 4 mm increase in size . No pain. No elevated LFTs on 03/11/2010. - Calculus of kidney 05/17/[address] Nicolas: Hospitalized age 20, a nd again later -- no procedures so far ([facility], [facility], [facility]) - Dysmenorrhea - Impaired fasting glucose [...] Approx. 3 cigarettes daily-1 pack every w [place] Substance Use Topics - Alcohol use: Yes [...] (METRONIDAZOLE HCL) 03/11/2010 12 - Shortness of [place] th IBUPROFEN 06/18/2016 8 - GI Upset PENICILLINS 12/07/2009 2 - Rash PREDNISONE 06/18/2016 14 - Other: See Comments Comments: makes agitated and mean Date Reviewed: 11/24/2019 Reviewed by: Jay) Hugo - Fully Assessed Reason for Visit: ED Follow-up [821] Cmt: Patient is here for follow up on pne umonia Primary Visit Diagnosis:Bacterial pneumonia [J15.9] Other Visit Diagnoses:Generalized anxiety disorder [F41.1] SOB (shortness of breath) [R06.02] Chest pain, unspecified type [R07.9] 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 [address] [place], [place] [address] Abs Prentiss 0.43 <0.87 k/uL Normal 11-24-2019 [facility] (63645) Comment: Performed By: #### TSH, CBCD IF, CMP #### [facility] [address] [place], [place] [address] Abs Neut 5.59 1.45-7.50 k/uL Normal 11-24-2019 [facility] (52210) Comment: Performed By: #### TSH, CBCD IF, CMP #### [facility] [address] [place], [place] [address] Absolute nRBC <0.01 <0.01 Normal 11-24-2019 [facility] (02893) Comment: Performed By: #### TSH, CBCD IF, CMP #### [facility] [address] [place], [place] [address] Basophils/100 WBC (Bld) 0.7 % Normal 2019 [facility] (61680) Comment: Performed By: #### TSH, CBCD IF, CMP #### [facility] [address] [place] [address] DTYPE Auto Diff Normal 11-24-2019 [facility] (85561) Comment: Performed By: #### TSH, CBCD IF, CMP #### [place] [address] Eosinophils (Bld) [#/Vol] 0.34 <0.46 k/uL Normal 11-12 [facility] (41932) Comment: Performed By: #### TSH, CBCD IF, CMP #### [facility] [address] [place], [place] [address] Eosinophils/100 WBC (Bld) 3.7 % Normal 11-12 [facility] (61650) Comment: Performed By: #### TSH, CBCD IF, CMP #### [facility] [address] [place] [address] Erythrocyte distribution 13.1 11.5-15.0 % Normal 11-23 [facility] width (RBC) [Ratio] [place] (44662) Comment: Performed By: #### TSH, CBCD IF, CMP #### [facility] [address] [place], [place] [address] Hematocrit (Bld) [Volume 38.1 36.0-46.0 % Normal 11-23 [facility] fraction] [place] (40852) Comment: Performed By: #### TSH, CBCD IF, CMP #### [facility] [address] [place], [place] [address] Hemoglobin (Bld) 11.7 11.5-15.5 g/dL Normal 11-24-2019 [facility] [Mass/Vol] [place] (73226) Comment: Performed By: #### TSH, CBCD IF, CMP #### [facility] [address] [place] [address] Lymphocytes (Bld) [#/Vol] 2.69 1.00-4.00 k/uL Normal 11-12 [facility] (99971) Comment: Performed By: #### TSH, CBCD IF, CMP #### [facility] [address] [place] [address] Lymphocytes/100 WBC (Bld) 29.5 % Normal 11-12 [facility] (75305) Comment: Performed By: #### TSH, CBCD IF, CMP #### [facility] [place], [place] [address] MCH (RBC) [Entitic mass] 29.3 26.0-34.0 pG Normal 11-23 [facility] (37526) Comment: Performed By: #### TSH, CBCD IF, CMP #### [facility] [place] [address] MCHC (RBC) [Mass/Vol] 30.7 30.5-36.0 g/dL Normal 11-24-19 20 [facility] (80814) Comment: Performed By: #### TSH, CBCD IF, CMP #### [facility] [address] [place] [address] MCV (RBC) [Entitic vol] 95.3 80.0-100.0 fL Normal 11-23 [facility] (22002) Comment: Performed By: #### TSH, CBCD IF, CMP #### [facility] [address] [place], [place] [address] Monocytes/100 WBC (Bld) 4.7 % Normal 2019 [facility] (48812) Comment: Performed By: #### TSH, CBCD IF, CMP #### [facility] [address] [place], [place] [address] Neutrophils/100 WBC (Bld) 61.4 % Normal 11-12 [facility] (78255) Comment: Result Comment: Differential confirmed by visual scan of peripheral blood smear slide. Performed By: #### TSH, CBCD IF, CMP #### [facility] [address] [place] [address] NRBCs 0.0 0 /100 WBC Normal 11-24-2019 [facility] (51365) Comment: Performed By: #### TSH, CBCD IF, CMP #### [facility] [address] [place] [address] Platelet mean volume 11.4 9.0-12.7 fL Normal 0 [facility] (d) [Entitic vol] [place] ([address]) Comment: Performed By: #### TSH, CBCD IF, CMP #### [facility] [address] [place] [address] Platelets (Bld) [#/Vol] 248 150-400 k/uL Normal 2019 [facility] (01353) Comment: Performed By: #### TSH, CBCD IF, CMP #### [facility] [address] [place] [address] RBC (Bld) [#/Vol] 4.00 3.90-5.20 m/uL Normal 11-24-2019 [facility] (82260) Comment: Performed By: #### TSH, CBCD IF, CMP #### [facility] [address] [place], [place] [address] WBC (Bld) [#/Vol] 9.11 3.70-11.00 k/uL Normal 11-24-2019 [facility] (21742) Comment: Performed By: #### TSH, CBCD IF, CMP #### [facility] [address] [place], [place] [address] cnpn on 2019-11-21 CNPN Telephone (FAMPWS) Normal 11-21-2019 [place] [facility] SALLY VARGAS ([id number]) 1980 [facility] Date Time Provider Department ([id number]) 11/21/19 [facility] During your visit today, we recorded the following informati on about you: Janneth Zhou, RN, RN 11/21/2019 3:22 PM Signed Pt calls, stating Dr Fitzpatrick is not covered by her insurance. Advised pt to contact insurance company for a covered pain management prov ider. Pt verbalizes understanding. ISABEL ARIAS PA-C 11/21/2019 4:[address] Saldana. MAYA Delgado Ma 11/23/2019 11:15 AM Signed Faxed information [...] Status:Closed by VALENTE BRUCE MA on 11/23/19 [facility] 2019-[facility] CNPN Telephone (FAMPWS) Normal 11-19-2019 [place] [facility] SALLY VARGAS ([id number]) 1980 [facility] Date Time Provider Department (01729) 11/19/19 [facility] During your visit today, we recorded the following informati on about you: Ashwini Kruger LPN 11/19/2019 10:47 AM Signed Patient calling, states she was seen in the office yesterday and sent to the ER for possible PE. CT scan showed no PE bu t did show kelly pneumonia. Patient was sent home with Zeynep. Patient is stating that she was not [...] to be evaluated again in EMERGENCY DEPARTMENT DO Nenita Mcfarland LPN 11/21/2019 11:15 AM Signed Pt seen in [facility] ER on 11/19/19. Janneth Zhou, RN, [...] - Fully Assessed Reason for Visit: Question [2647] Patient Update [1234] Reason For Visit History Recorded Prescriptions as [...] * *Final Report* * * Normal 11-17 [facility] FRONTAL/LAT DATE OF EXAM: Nov 18 2019 12:48PM [place] WOX 5291 - XR CHEST 2V FRONTAL/LAT / (00970) PROCEDURE REASON: multiple diagnoses * * * [...] tissues: Unremarkable. IMPRESSION: No acute radiographic abnormality. Superintendent Police: HERMINIO Transcribe Date/Time: Nov 18 2019 1:01P Dictated by : KORI BLANKENSHIP MD This examination was interpreted and the report reviewed and electronically signed by: KORI BLANKENSHIP MD on Nov 18 2019 1:02PM EST [id number] progress on 2019-11 PROGRESS HNO ID: [id number] Normal 11-18-2019 [facility] Author: Vianey Aguayo (Rt) Lara ([id number]) Service: ? Author Type: [employer] Paralegal Type: Progress Notes Filed: 11/18/2019 12:49 PM Note Text: Radiology Service Progress Note PATIENT NAME: Sally Vargas DATE OF SERVICE: November 18, 2019 TIME: [...] 18, 2019 12:40 PM PROGRESS HNO ID: [id number] Normal 11-18-2019 [facility] Author: Randi Lara ([id number]) Service: ? Author Type: Physician Bus Analyst Type: Progress Notes Filed: 11/18/2019 3:32 PM Note Text: Chief Complaint Patient presents with: Fatigue: Patient is here for fatigue; dizziness; nasuea; wea kness; headaches; 2 weeks HPI Sally Vargas is a 39 year old female who [...] Past medical history, appointments, medications, allergies herman prosperpablito. Previous Medical History PAST MEDICAL HISTORY Diagnosis Date - Allergic rhinitis, cause unspecified 05/17/2008spring and summer - Benign liver cyst 05/24/2010 CT scan at [facility] 11/2009 and 04/2010 showe 4 mm increase in size . No pain. No elevated LFTs on 03/11/2010. - Calculus of kidney 05/17/[address] Nicolas: Hospitalized age 20, and again later -- no procedures so far ([facility], [facility], 1995 [facility]) - Dysmenorrhea - Impaired fasting glucose [...] removed - TOTAL ABDOM HYSTERECTOMY 08/31/06 Hysterectomy, [facility] Family History FAMILY HISTORY Problem Relation Age [...] Approx. 3 cigarettes daily-1 pack every w [place] Substance Use Topics - Alcohol use: Yes [...] ekg1 on 2019-11-18 EKG1 NAME : SALLY VARGAS 020 [facility] PID : [id number] Sina boyd ([id number]) : 1980 Gender : Female Race : [...] ms QTC Calculation(Bazett) : 453 ms P [place] : 51 degrees R [place] : -43 degrees T [place] : 6 degrees Test Reason : Location : 185 : [facility] Overread By : RUBEN GALVIN D.O. Edited By : RUBEN GALVIN D.O. Referred By : ISABEL ARIAS(MAYA) Acquired by : morena MURRIETA [facility]) Normal 11-18-2019 [place] [facility] SALLY VARGAS ([id number]) 1980 F [place] Date Time Provider Department (78476) 11/18/19 [facility] During your visit today, we recorded the following informati on about you: Lorenzo Vu 11/18/2019 2:14 PM Addendum [facility] calls with results of d-dimer 1.10 ( normal range is 0.27 - 0.49). MA notified. ISABEL ARIAS PA-C 11/18/2019 2:28 PM Signed Please let patient know that I need her to go to Er to get e valuated for possible blood clot in lung. MAYA Delgado Ma 11/18/2019 2:31 PM Signed Patient notified [...] cnov on 2019-11-18 CNOV Office Visit (FAMPWS) Normal 11-18-19 [place] [facility] SALLY VARGAS ([id number]) 1980 [facility] Date Time Provider Department (24273) 11/18/19 12:20 PM [facility] During your visit today, we recorded the following informati on about you: Temperature Pulse Respiration Blood pressure 98.6 degrees 76/minute 18/minute 116/88 Weight 89.8 kg ISABEL ARIAS PA-C 11/18/2019 3:32 PM Signed Chief Complaint Patient presents with: Fatigue: Patient is here for fatigue; dizziness; nasuea; weakness; headaches; 2 weeks HPI Sally Vargas is a 39 year old female who [...] States she was given gabapentin while in [facility] which helped or symptoms. I cannot find [...] Benign liver cyst 05/24/2010 CT scan at [facility] 11/2009 and 04/2010 showe 4 mm increase in size . No pain. No elevated LFTs on 03/11/2010. - Calculus of kidney 05/17/[address] Nicolas: Hospitalized age 20, a nd again later -- no procedures so far ([facility], [facility], 1995 [facility]) - Dysmenorrhea - Impaired fasting glucose [...] removed - TOTAL ABDOM HYSTERECTOMY 08/31/06 Hysterectomy, [facility] Family History FAMILY HISTORY Problem Relation Age [...] Approx. 3 cigarettes daily-1 pack every w [place] Substance Use Topics - Alcohol use: Yes [...] (METRONIDAZOLE HCL) 03/11/2010 12 - Shortness of [place] th IBUPROFEN 06/18/2016 8 - GI Upset [...] pain syndrome [G89.4] Order(s):CONSULT TO PAIN MGT [529643] Order #: [id number] : 1 FUTURE CBC + DIFF [SQCBCDIF] Order #: [id number] FUTURE COMP METABOLIC PANEL [SQCMP] Order #: [id number] FUTURE D-DIMER [SQDDMER] Order #: [id number] FUTURE TSH BLD [SQTSH] Order #: [id number] FUTURE CONSULT TO CARDIOLOGY [9004] Order #: [id number]: 1 FUTUR E XR CHEST 2V FRONTAL/LAT [1398537] Order #: [id number] FUTURE TROPONIN T [SQTNT] Order #: [id number] FUTURE Prescriptions as of 11/18/2019 Sig: AMITRIPTYLINE [...] 11/18/19 emergency report on 2019-11-03 EMERGENCY REPORT [facility] Normal 11-03 [facility]ital EMERGENCY ROOM REPORT ([id number]) NAME ACCOUNT SEX AGE ADMIT DISCHARGE PT MED. RECORD# NUMBER DATE DATE TYPE SAM [id number] F 39 10/31/19 10/31/19 3 SALLY [id number] ROOM: ER DATE OF : 1980 DICTATING PHYSICIAN: Nikhil Pena HISTORY OF PRESENT ILLNESS: The patient came [...] DIAGNOSTIC DATA: Her chemistries were unremarkable. Li abe was normal. White count was normal at [...] try contacting Dr. Kyle hernandez through the [employer]. We will dispense her 2 Percocet to go home. I did r eview her OARRS, and she will be discharged in stable condition. Page 1 of 2 ABDIFATAHSALLY TORRES Emergency Room Report SAM SALLY : 1980 Dictated By: Nikhil Pena DO 10/31/19 18:03 JOB #: [id number] Transcribed By: am 11/01/19 14:42 Electronically signed by: JC Pena D.O. 11/03/19 07:04 Page 2 of 2 SALLY VARGAS Emergency Room Report urinalysis on 10-31 Calcium Ox 1+ NORMAL: NONE Normal 10-31-2019 [facility] (55473) Comment: Performed By: #### [id number] ## ## [facility],[address] [place] [address] 27679 Amorphous TRACE Normal 10-31-2019 [facility] (47406) Comment: Performed By: #### [id number] ## ## [facility],[address] [place] [address] 42244 Bacteria LM.HPF (Urine sed) TRACE Normal [facility] [#/Area] [facility] ( 32348) Comment: Performed By: #### [id number] ## ## [facility],[address] [place] [address] 14128 Bilirubin [Mass/Vol] NEG NORMAL: NEGATIVE mg/dL Normal [facility] (96983) Comment: Performed By: #### [id number] ## ## [facility],[address] [place] [address] 76704 Blood 25 NORMAL: NEGATIVE Abnormal 10-31-2019 [facility] (17493) Comment: Performed By: #### [id number] ## ## [facility],[address] [place] [address] 08794 Casts LM.LPF (Urine sed) NONE Normal 10-31 [facility] [/Area] [facility] ( 39862) Comment: Performed By: #### [id number] ## ## [facility],[address] [place] [address] 17902 Clarity (U) clear NORMAL: CLEAR Normal 10-31-[address] [facility] (34778) Comment: Performed By: #### [id number] ## ## [facility],[address] [place] [address] 99750 Color (U) yellow NORMAL: YELLOW Normal 10-31-2019 [facility] (48744) Comment: Performed By: #### [id number] ## ## [facility],[address] [place] [address] 71739 Crystals LM Nom (Urine sed) SEE BELOW Normal [facility] ( 79993) Comment: Performed By: #### [id number] ## ## [facility],[address] [place] [address] 86623 Epi Cells MANY Normal 10-31-2019 [facility] (79728) Comment: Performed By: #### [id number] ## ## [facility],[address] [place] [address] 78118 Glucose [Mass/Vol] NORM NORMAL: NORMAL Normal 2019 [facility] ( 18815) Comment: Performed By: #### [id number] ## ## [facility],[address] [place] [address] 62938 Ketone NEG NORMAL: NEGATIVE Normal 10-31-2019 [facility] (43955) Comment: Performed By: #### [id number] ## ## [facility],[address] [place] [address] 18247 Microscopic SEE BELOW Normal 10-31-2019 [facility] (97594) Comment: Result Comment: MICROSCOPIC Performed By: #### [id number] ## ## [facility],[address] [place] [address] 57035 Mucous NONE Normal 10-31-2019 [facility] (05161) Comment: Performed By: #### [id number] ## ## [facility],[address] [place] [address] 82838 Nitrite Ql (U) NEG NORMAL: NEGATIVE Normal 10-31-19 20 [facility] ( 27228) Comment: Performed By: #### [id number] ## ## [facility],[address] [place] [address] 45652 pH (Bld) 5 NORMAL: 5.0-8.0 Normal 10-31-[address] [facility] (63721) Comment: Performed By: #### [id number] ## ## [facility],[address] [place] [address] 43469 Protein (U) NEG NORMAL: NEGATIVE mg/dL Normal 10-31-2019 [facility] [Mass/Vol] [facility] (42566) Comment: Performed By: #### [id number] ## ## [facility],[address] [place] [address] 39346 Rbc 0-5 0-3/hpf Normal 10-31-2019 [facility] (59984) Comment: Performed By: #### [id number] ## ## [facility],[address] [place] [address] 05104 Sp Leon 1.030 NORMAL: 1.010-1.030 Normal 0 [facility] ( 13630) Comment: Performed By: #### [id number] ## ## [facility],[address] [place] [address] 06412 Specimen type Nom (Spec) UNSPECIFIED Normal [facility] ( 55451) Comment: Performed By: #### [id number] ## ## [facility],[address] [place] [address] 07978 Urobilinog NORM NORMAL: NORMAL Normal 10-31-[address] [facility] (65258) Comment: Performed By: #### [id number] ## ## [facility],[address] [place] [address] 21285 Wbc 1-5 0-5/hpf Normal 10-31-2019 [facility] (13045) Comment: Performed By: #### [id number] ## ## [facility],[address] [place] [address] 74400 WBC (Bld) [#/Vol] 25 NORMAL: NEGATIVE Abnormal 10-31 [facility] ( 43354) Comment: Performed By: #### [id number] ## ## [facility],[address] [place] [address] 46646 Yeast LM Ql (Urine sed) NONE Normal 2019 [facility] (30803) Comment: Performed By: #### [id number] ## ## [facility],[address] [place] [address] 12671 lipase on 2019-10-15 7 Lipase [Catalytic 40.0 18.0 - 51.0 U/L Normal 10-31-2019 [facility] activity/Vol] [facility] (24052) Comment: Performed By: #### [id number] ## ## [facility],[address] [place] [address] 48351 cmp with egfr on 03-11-16 Age - Reported 39 years Normal 10-31-2019 [facility] (86873) Comment: Performed By: #### [id number] ## ## [facility],[address] [place] [address] 87036 Albumin [Mass/Vol] 4.4 3.4 - 4.8 g/dL Normal 10-31-2019 [facility] ( 03101) Comment: Performed By: #### [id number] ## ## [facility],[address] [place] [address] 04020 Albumin/Globulin [Mass 1.3 0.9 - 1.6 {ratio} Normal 020 [facility]] [facility] (24891) Comment: Performed By: #### [id number] ## ## [facility],[address] [place] [address] 91293 ALK PHOS 79 38 - 126 U/L Normal 10-31-2019 [facility] (07069) Comment: Performed By: #### [id number] ## ## [facility],[address] [place] [address] 22964 ALT/SGPT 12 8 - 35 U/L Normal 10-31-2019 [facility] (36352) Comment: Performed By: #### [id number] ## ## [facility],[address] [place] [address] 32732 Anion gap [Moles/Vol] 12 10 - 20 mmol/L Normal 10-31-19 20 [facility] ( 68873) Comment: Performed By: #### [id number] ## ## [facility],[address] [place] [address] 63348 AST/SGOT 13 13 - 39 U/L Normal 10-31-2019 [facility] (42260) Comment: Performed By: #### [id number] ## ## [facility],[address] [place] [address] 18671 B/C RATIO 18 0 - 30 ratio Normal 10-31-2019 [facility] (94717) Comment: Performed By: #### [id number] ## ## [facility],[address] [place] [address] 68358 Bilirubin [Mass/Vol] 0.4 0.0 - 1.5 mg/dl Normal 0 [facility] ( 06806) Comment: Performed By: #### [id number] ## ## [facility],[address] [place] [address] 50980 Calcium [Mass/Vol] 9.6 8.6 - 10.2 mg/dl Normal 10-31-2019 [facility] ( 26328) Comment: Performed By: #### [id number] ## ## [facility],[address] [place] [address] 11198 Chloride [Moles/Vol] 103 98 - 107 mmol/L Normal 0 [facility] ( 07750) Comment: Performed By: #### [id number] ## ## [facility],[address] [place] [address] 09222 CO2 [Moles/Vol] 25.8 21.0 - 31.0 mmol/L Normal 10-31-2019 [facility] ( 83107) Comment: Performed By: #### [id number] ## ## [facility],[address] [place] [address] 29181 Creatinine [Mass/Vol] 1.0 0.6 - 1.2 mg/dl Normal 10-31-19 20 [facility] ( 27972) Comment: Performed By: #### [id number] ## ## [facility],[address] [place] [address] 45285 GFR/1.73 sq M predicted among Normal 10-31-2019 [facility] non-blacks MDRD (S/P/Bld) [Vol Hospital (56285) rate/Area] Comment: Result Comment: COMPREHENSIV E METABOLIC PANEL Performed By: #### [id number] ## ## [facility],[address] [place] [address] 59121 GFR/1.73 sq M >60 60 - 999 mL/min/{1.73_m2} Normal 0 [facility] predicted among [facility] non-blacks MDRD (000 00) (S/P/Bld) [Vol rate/Area] [...] OF AGE AND OLDER. Performed By: #### [id number] ## ## [facility],[address] [place] [address] 93332 Globulin (S) [Mass/Vol] 3.3 1.5 - 3.8 G/DL Normal 2019 [facility] ( 56229) Comment: Performed By: #### [id number] ## ## [facility],[address] [place] [address] [place] [address] Glucose [Mass/Vol] 96 74 - 106 mg/dl Normal 10-31-2019 [facility] ( 18336) Comment: Performed By: #### [id number] ## ## [facility],[address] [place] [address] [place] [address] Potassium [Moles/Vol] 3.9 3.5 - 5.1 mmol/L Normal 10-31-19 20 [facility] ( 27612) Comment: Performed By: #### 195029 ## ## [facility],[address] [place] [address] [place] [address] Protein [Mass/Vol] 7.7 6.4 - 8.3 g/dl Normal 10-31-2019 [facility] ( 93310) Comment: Performed By: #### 192690 ## ## [facility],[address] [place] [address] [place] [address] Sodium [Moles/Vol] 137 136 - 145 mmol/l Normal 10-31-2019 [facility] ( 79571) Comment: Performed By: #### [id number] ## ## [facility],[address] [place] [address] 50936 Urea nitrogen [Mass/Vol] 18 6 - 20 mg/dl Normal 10-31 [facility] ( 05721) Comment: Performed By: #### [id number] ## ## [facility],[address] [place] [address] 51554 cbc + diff on 10-31 Basophils (Bld) 0.20 0.00 - 0.10 x10EE3/UL High 10-31-2019 [facility] [#/Vol] [facility] ospital (68848) Comment: Performed By: #### [id number] ## ## [facility],[address] [place] [address] 07406 Basophils/100 WBC (Bld) 2.0 0.0 - 2.0 % Normal 2019 [facility] ( 96549) Comment: Performed By: #### [id number] ## ## [facility],[address] [place] [address] 27313 CBC + DIFF Normal 10-31-2019 [facility] (97433) Comment: Result Comment: CBC-COMPLETE BLOOD COUNT Performed By: #### [id number] ## ## [facility],[address] [place] [address] 63222 Eosinophils (Bld) 0.40 0.00 - 0.50 x10EE3/UL Normal 10-31-2019 [facility] [#/Vol] [facility] (78959) Comment: Performed By: #### [id number] ## ## [facility],[address] [place] [address] 26818 Eosinophils/100 WBC (Bld) 4.8 0.0 - 7.0 % Normal 10-15 [facility] ( 88587) Comment: Performed By: #### [id number] ## ## [facility],[address] [place] [address] 39397 Erythrocyte distribution 13.7 12.0 - 15.6 % Normal [facility] (RBC) [Ratio] Hospital (68678) Comment: Performed By: #### [id number] ## ## [facility],[address] [place] [address] 78531 Hematocrit (Bld) [Volume 35.8 34.0 - 46.0 % Normal [facility] ( 60055) Comment: Performed By: #### [id number] ## ## [facility],[address] [place] [address] 79673 Hemoglobin (Bld) 12.3 12.0 - 16.0 g/dl Normal 10-31-2019 [facility] [Mass/Vol] [facility] (33810) Comment: Performed By: #### [id number] ## ## [facility],[address] [place] [address] 92042 Lymphocytes (Bld) 2.70 0.80 - 2.80 x10EE3/UL Normal 10-31-2019 [facility] [#/Vol] [facility] (22585) Comment: Performed By: #### [id number] ## ## [facility],[address] [place] [address] 89929 Lymphocytes/100 WBC (Bld) 30.3 20.0 - 45.0 % Normal [facility] ( 32579) Comment: Performed By: #### 221021 ## ## [facility],[address] [place] [address] 26692 MANUAL DIFF N/A Normal 10-31-2019 [facility] (50079) Comment: Performed By: #### [id number] ## ## [address] [address] MCH (RBC) [Entitic mass] 30 27 - 33 pg Normal 10-31 [facility] ( 65726) Comment: Performed By: #### [id number] ## ## [facility],[address] [place] [address] 45983 MCHC (RBC) [Mass/Vol] 34 32 - 36 X10 3 Normal 10-31-19 20 [facility] ( 20160) Comment: Performed By: #### [id number] ## ## [facility],[address] [place] [address] 23258 MCV (RBC) [Entitic vol] 88 80 - 99 fl Normal 2019 [facility] ( 98321) Comment: Performed By: #### [id number] ## ## [facility],[address] [place] [address] 24863 Monocytes (Bld) 0.50 0.20 - 1.00 x10EE3/UL Normal 10-31-2019 [facility] [#/Vol] [facility] (74455) Comment: Performed By: #### [id number] ## ## [facility],[address] [place] [address] 57329 MONOS % 5.4 0.0 - 10.0 % Normal 10-31-2019 [facility] (30612) Comment: Performed By: #### [id number] ## ## [facility],[address] [place] [address] 21066 Morphology Adrian (Bld) [Interp] N/A Normal 10-31-2019 [facility] ( 09555) Comment: Performed By: #### [id number] ## ## [facility],[address] [place] [address] 42280 Neutrophils (Bld) 5.10 1.50 - 7.10 x10EE3/UL Normal 10-31-2019 [facility] [#/Vol] [facility] (91958) Comment: Performed By: #### [id number] ## ## [facility],[address] [place] [address] 86899 Neutrophils/100 WBC (Bld) 57.5 46.0 - 76.0 % Normal [facility] ( 76252) Comment: Performed By: #### [id number] ## ## [facility],[address] [place] [address] 34863 Platelet mean volume 8.9 6.6 - 10.5 fl Normal 10-31-19 20 [facility] (Bld) [Entitic vol] Hospital (06640) Comment: Result Comment: AUTOMATED DI FFERENTIAL Performed By: #### [id number] ## ## [facility],[address] [place] [address] 50803 Platelets (Bld) 280 150 - 450 x10EE3/UL Normal 10-31-2019 [facility] [#/Vol] [facility] (99182) Comment: Performed By: #### [id number] ## ## [facility],[address] [place] [address] 56006 RBC (Bld) [#/Vol] 4.06 4.10 - 5.30 x 10EE6/UL Low 0 [facility] ( 58132) Comment: Performed By: #### [id number] ## ## [facility],[address] [place] [address] 96576 WBC (Bld) [#/Vol] 8.8 4.5 - 10.8 x 10EE3/UL Normal 10-31-2019 [facility] ( 75367) Comment: Performed By: #### [id number] ## ## [facility],[address] [place] [address] 76414 hemogram on 2019-09 Erythrocyte distribution 13.6 11.5-14.5 % Normal 10-08 [facility] width (RBC) [Ratio] (23746) Comment: Performed By: #### MG JULIA 3, HEMOG #### [employer] [address] [place] [address] Hematocrit (Bld) [Volume 33.3 35.0-47.0 % Low 10-08 [facility] fraction] (81997) Comment: Performed By: #### JULIA MG 3, HEMOG #### [facility] [address] [place], [place] Hemoglobin (Bld) [Mass/Vol] 11.3 11.7-16.0 g/dL Low [facility] (27807) Comment: Performed By: #### BMP3M, MG 3, HEMOG #### [place] [address] [address] [place], [place] MCH (RBC) [Entitic mass] 30.4 26.0-34.0 pg Normal 10-08 [facility] (32479) Comment: Performed By: #### BMP3M, MG 3, HEMOG #### [place] [address] [address] [place], [place] MCHC (RBC) [Mass/Vol] 33.9 32.0-36.0 % Normal 10-08-19 20 [facility] (31220) Comment: Performed By: #### BMP3M, MG 3, HEMOG #### [place] [address] [address] [place], [place] MCV (RBC) [Entitic vol] 89.9 79.0-98.0 fL Normal 2019 [facility] (95818) Comment: Performed By: #### BMP3M, MG 3, HEMOG #### [place] [address] [address] [place], [place] Platelet mean volume (Bld) 9.5 7.4-10.4 fL Normal [facility] [Entitic vol] (81595 ) Comment: Performed By: #### BMP3M, MG 3, HEMOG #### [place] [address] [address] [place], [place] Platelets (Bld) [#/Vol] 240 140-440 10*3/uL Normal 2019 [facility] (87322) Comment: Performed By: #### BMP3M, MG 3, HEMOG #### [place] [address] [address] [place], [place] RBC (Bld) [#/Vol] 3.70 3.80-5.20 10*6/uL Low 10-08-2019 [facility] (94904) Comment: Performed By: #### BMP3M, MG 3, HEMOG #### [facility] [address] [place], [place] WBC (Bld) [#/Vol] 18.5 3.6-10.7 10*3/uL High 10-08-2019 [facility] (85667) Comment: Performed By: #### BMP3M, MG 3, HEMOG #### [facility] [address] [place], [place] ts gel on 2019-09-15 4 TS GEL ABO Group: Normal 10-07-2019 [facility] (71296) O Rh, Gel: POS Antibody Screen Gel: NEG Comment: Performed By: #### BMP3M, MG 3, HEMOG #### [facility] [address] [place], [place] surgical pathology on 2019-10-07 Surgical [id number] Normal 10-07-2019 [facility] Pathology [facility] DEPARTMENT OF [employer] [facility] System PATHOLOGY AND ( ) LABORATORY MEDICINE [address] [place] [address] FINAL SURGICAL PATHOLOGY REPORT NAME: SALLY VARGAS : 1980 39 Y F BILLING NO.: [id number] LOCATION: [facility] 5117 01 PROCEDURE 10/07/2019 DATE: SURGEON: DELON [...] determined by the clinical labor atories of [facility]. They have not been cleared by the [place] Fo od and Drug Administration (FDA). The FDA [...] Results should be interpreted with caution given th e raised possibility of false negativity on decalcified specimens. Professional Performing Location: [place] [address] [place] [address]. DEPARTMENT OF PATHOLOGY AND LABORATORY MEDICINE [place], [place] [address] op note on Op Note PATIENT: SALLY VARGAS -2 [facility] (71695) ADMISSION DATE: 10/07/2019 SURGERY DATE: 10/07/2019 DATE [...] mass from a prior exam done in e office. She underwent abdominal prep and drape [...] with a minimal EBL. Diskriter Job ID: [id number] Delon Palacios MD DOD:10/07/2019 10:46 A SA/semaj DOT:10/07/2019 12:51 P Job Number: [id number] Document Number: [id number] cc: Delon Palacios MD [facility] Physicians [address] [facility] [address] Lui Harris MD [address] [place], [address] [facility] [address] follicle stim hormone on 2019-09-15 Follicle Stim Hormone 6.5 m[IU]/mL Normal 09-15-19 [facility] (86137) Comment: Result Comment: Females: Follicular Phase ...... 2.3- 12.6 Mid-cycle Peak ........ 5.2- 17.5 Luteal Phase .......... 1.7- 12.9 Post-menopausal ....... 12.7 -132.2 Males: 0.7-10.8 Performed By: #### FSH3 #### [facility] [address] [place] [address] us pelvis ta/tv on 2019-09-11 US Pelvis TA/TV Patient Name: SALLY VARGAS 09-11-2019 [facility] (51367 ) Ultrasound Exam Date/Time 09/11/2019 14:17:16 EST Exam US Pelvis TA/TV Ordering Physician MARLA ARNDT REBECCA E. Accession Number [id number] CPT4 Codes 12675 (US Pelvis TA/TV), 46547 (US Transvaginal) Reason For Exam right ovarian mass seen on CT, s/p hysterectomy Report EXAMINATION: Transabdominal and transvaginal pelvic ultrasound. COMPARISON: CT scan of 09/11/2019 from [facility]. REASON FOR STUDY: [...] Baso Cnt 0.0 0.0-0.2 10*3/uL Normal 09-05-2019 [facility] [employer] Private [facility] (54661) Comment: Performed By: #### NALLELY CHI P3 #### [employer] [address] [place] [address] Abs Neutrophile Cnt 3.9 1.8-7.0 10*3/uL Normal 09-05-2019 [facility] [employer] (02648) Comment: Performed By: #### HEMMAGDALENO BM P3 #### [employer] [address] [place] [address] Basophils/100 WBC (Bld) 0.3 0.0-2.0 % Normal 2018 [facility] [employer] [facility] (33732) Comment: Performed By: #### ALON BM P3 #### [employer] [address] [place], [place] Eosinophils (Bld) [#/Vol] 0.2 0.0-0.5 10*3/uL Normal 08-15 [facility] (21796) Comment: Performed By: #### HEMDF, BM P3 #### [place] [address] [address] [place], [place] Eosinophils/100 WBC (Bld) 3.3 1.0-6.0 % Normal 08-15 [facility] (07808) Comment: Performed By: #### HEMDF, BM P3 #### [place] [address] [address] [place], [place] Erythrocyte distribution 12.9 11.5-14.5 % Normal 09-05 [facility] width (RBC) [Ratio] (42026) Comment: Performed By: #### HEMDF, BM P3 #### [place] [address] [address] [place], [place] Granulocytes/100 WBC (Bld) 55.5 40.0-80.0 % Normal [facility] (63644) Comment: Performed By: #### HEMDF, BM P3 #### [place] [address] [address] [place], [place] Hematocrit (Bld) [Volume 34.8 35.0-47.0 % Low 09-05 [facility] fraction] (38353) Comment: Performed By: #### HEMDF, BM P3 #### [place] [address] [address] [place], [place] Hemoglobin (Bld) [Mass/Vol] 11.5 11.7-16.0 g/dL Low [facility] (21821) Comment: Performed By: #### HEMDF, BM P3 #### [place] [address] [address] [place], [place] Lymphocytes (Bld) [#/Vol] 2.5 1.0-4.3 10*3/uL Normal 08-15 [facility] (29479) Comment: Performed By: #### HEMDF, BM P3 #### [place] [address] [address] [place], [place] Lymphocytes/100 WBC (Bld) 35.4 20.0-40.0 % Normal 08-15 [facility] (17400) Comment: Performed By: #### HEMDF, BM P3 #### [place] [address] [address] [place], [place] MCH (RBC) [Entitic mass] 29.9 26.0-34.0 pg Normal 09-05 [facility] (27971) Comment: Performed By: #### HEMDF, BM P3 #### [place] [address] [address] [place], [place] MCHC (RBC) [Mass/Vol] 33.0 32.0-36.0 % Normal 09-05-20 [facility] (18947) Comment: Performed By: #### HEMDF, BM P3 #### [place] [address] [address] [place], [place] MCV (RBC) [Entitic vol] 90.7 79.0-98.0 fL Normal 2018 [facility] (09878) Comment: Performed By: #### HEMDF, BM P3 #### [place] [address] [address] [place], [place] Monocytes (Bld) [#/Vol] 0.4 0.0-0.8 10*3/uL Normal 2018 [facility] (19240) Comment: Performed By: #### HEMDF, BM P3 #### [place] [address] [address] [place], [place] Monocytes/100 WBC (Bld) 5.5 2.0-10.0 % Normal 2018 [facility] (19968) Comment: Performed By: #### HEMDF, BM P3 #### [place] [address] [address] [place], [place] Platelet mean volume (Bld) 9.8 7.4-10.4 fL Normal [facility] [Entitic vol] (46171 ) Comment: Performed By: #### HEMDF, BM P3 #### [facility] [address] [place], [place] Platelets (Bld) [#/Vol] 204 140-440 10*3/uL Normal 2018 [facility] (43203) Comment: Performed By: #### HEMDF, BM P3 #### [facility] [address] [place], [place] RBC (Bld) [#/Vol] 3.83 3.80-5.20 10*6/uL Normal 09-05-2019 [facility] (88122) Comment: Performed By: #### HEMDF, BM P3 #### [facility] [address] [place], [place] WBC (Bld) [#/Vol] 7.0 3.6-10.7 10*3/uL Normal 09-05-2019 [facility] (92455) Comment: Performed By: #### HEMDF, BM P3 #### [facility] [address] [place], [place] cr urography retrograde w/ + w/o kub on 2019-09-05 CR Urography Patient Name: SALLY VARGAS Normal 09-05-2019 [facility] Retrograde w/ + w/o System (65972) KUB Diagnostic Radiology Exam Date/Time 09/05/2019 08:12:21 EST Exam CR Urography Retrograde w/ + w/o KUB Ordering Physician MAUREEN STONE Accession Number [id number] CPT4 Codes 55262 () Reason For Exam Renal stone fluro c arm c and p Report A total of 1 minute and 11 seconds of fluoro time was used in the Operating Suite for this procedure. No other report will be generated. Final Signed Date and Time: 09/26/2019 2:02 pm Signed by: LINOLEUM LAYER HELPER, SYSTEM Transcribed Date and Time: 09/26/2019 1:19 Transcribed By:KRISTAN basic metabolic panel on 2019-09-05 Calcium [Mass/Vol] 8.7 8.4-10.4 mg/dL Normal 09-05-2019 [facility] (90692) Comment: Performed By: #### HEMDF, BM P3 #### [facility] [employer] [facility] [address] [place], [place] Anion gap [Moles/Vol] 7 Normal 09-05-20 [facility] (98408) Comment: Performed By: #### HEMDF, BM P3 #### [facility] [employer] [facility] [address] [place], [place] CO2 [Moles/Vol] 24 22-30 mmol/L Normal 09-05-2019 [facility] (94523) Comment: Performed By: #### HEMDF, BM P3 #### [facility] [employer] [facility] [address] [place], [place] Creatinine [Mass/Vol] 0.79 0.52-1.25 mg/dL Normal 09-05-20 [facility] (39147) Comment: Performed By: #### HEMDF, BM P3 #### [facility] [employer] [facility] [address] [place], [place] GFR/1.73 sq M > 60.0 >60 mL/min/{1.73_m2} Normal 9 [facility] predicted among Syst em (68207) blacks MDRD (S/P/Bld) [Vol rate/Area] Comment: Performed By: #### HEMDF, BM P3 #### [facility] [employer] [facility] [address] [place], [place] GFR/1.73 sq M > 60.0 >60 mL/min/{1.73_m2} Normal 9 [facility] predicted among Syst em (62720) non-blacks MDRD (S/P/Bld) [Vol rate/Area] Comment: Result Comment: Source- MDRD equation with creatinine calibration to IDMS(NKDEP) eGFR not recommended for dylon g dose adjustment Performed By: #### HEMDF, BM P3 #### [facility] [employer] [facility] [address] [place], [place] Glucose [Mass/Vol] 85 70-100 mg/dL Normal 09-05-2019 [facility] (22508) Comment: Performed By: #### HEMDF, BM P3 #### [facility] [address] [place], [place] Urea nitrogen [Mass/Vol] 5 7-20 mg/dL Low 09-05 [facility] (02160) Comment: Performed By: #### HEMDF, BM P3 #### [place] [address] [address] [place], [place] Chloride [Moles/Vol] 108 98-107 mmol/L High 9 [facility] (09000) Comment: Performed By: #### HEMDF, BM P3 #### [place] [address] [address] [place], [place] Potassium [Moles/Vol] 4.0 3.5-5.1 mmol/L Normal 09-05-20 19 [facility] (98251) Comment: Performed By: #### HEMDF, BM P3 #### [place] [address] [address] [place], [place] Sodium [Moles/Vol] 140 135-145 mmol/L Normal 09-05-2019 [facility] (25532) Comment: Performed By: #### HEMDF, BM P3 #### [place] [address] [address] [place], [place] magnesium on 2018-09 Magnesium [Mass/Vol] 1.9 1.6-2.3 mg/dL Normal 9 [facility] (55330) Comment: Performed By: #### BMP3M, MG 3, HEMOG #### [place] [address] [address] [place], [place] hemogram on 2019-08 Erythrocyte distribution 13.2 11.5-14.5 % Normal 09-04 [facility] width (RBC) [Ratio] (80306) Comment: Performed By: #### BMP3M, MG 3, HEMOG #### [address] Hematocrit (Bld) [Volume 36.7 35.0-47.0 % Normal 09-04 [facility] fraction] (37215) Comment: Performed By: #### BMP3M, MG 3, HEMOG #### [place] [address] [address] [place], [place] Hemoglobin (Bld) 12.3 11.7-16.0 g/dL Normal 09-04-2019 [facility] [Mass/Vol] (20546) Comment: Performed By: #### BMP3M, MG 3, HEMOG #### [facility] [address] [place], [place] MCH (RBC) [Entitic mass] 30.6 26.0-34.0 pg Normal 09-04 [facility] (63817) Comment: Performed By: #### BMP3M, MG 3, HEMOG #### [place] [address] [address] [place], [place] MCHC (RBC) [Mass/Vol] 33.5 32.0-36.0 % Normal 09-04-20 19 [facility] (88504) Comment: Performed By: #### BMP3M, MG 3, HEMOG #### [place] [address] [address] [place], [place] MCV (RBC) [Entitic vol] 91.3 79.0-98.0 fL Normal 2018 [facility] (88154) Comment: Performed By: #### BMP3M, MG 3, HEMOG #### [place] [address] [address] [place], [place] Platelet mean volume (Bld) 10.4 7.4-10.4 fL Normal [facility] [Entitic vol] (38582 ) Comment: Performed By: #### BMP3M, MG 3, HEMOG #### [place] [address] [address] [place], [place] Platelets (Bld) [#/Vol] 211 140-440 10*3/uL Normal 2018 [facility] (04938) Comment: Performed By: #### BMP3M, MG 3, HEMOG #### [place] [address] [address] [place], [place] RBC (Bld) [#/Vol] 4.02 3.80-5.20 10*6/uL Normal 09-04-2019 [facility] (98648) Comment: Performed By: #### BMP3M, MG 3, HEMOG #### [facility] [employer] [facility] [address] [place], [place] WBC (Bld) [#/Vol] 7.1 3.6-10.7 10*3/uL Normal 09-04-2019 [facility] (04563) Comment: Performed By: #### BMP3M, MG 3, HEMOG #### [facility] [address] [place], [place] culture urine on 01-09-22 CULTURE URINE CULTURE URINE --> Status: F Normal 09-04-2019 [facility] No growth (<1,000 CFU/ml). (19402) Comment: Order Comment: Specimen Sour ce Comment:Urine, clean catch Performed By: #### C/UR #### [place] [address] [address] [place], [place] basic metabolic panel on 2019-09-04 Potassium [Moles/Vol] 3.5 3.5-5.1 mmol/L Normal 09-04-20 [facility] (51873) Comment: Performed By: #### BMP3M, MG 3, HEMOG #### [facility] [employer] Private [place] [address] [address] [place], [place] Anion gap [Moles/Vol] 9 Normal 09-04-20 [facility] (95888) Comment: Performed By: #### BMP3M, MG 3, HEMOG #### [place] [address] [address] [place], [place] Calcium [Mass/Vol] 8.8 8.4-10.4 mg/dL Normal 09-04-2019 [facility] (43281) Comment: Performed By: #### BMP3M, MG 3, HEMOG #### [place] [address] [address] [place], [place] CO2 [Moles/Vol] 26 22-30 mmol/L Normal 09-04-2019 [facility] (01280) Comment: Performed By: #### BMP3M, MG 3, HEMOG #### [place] [address] [address] [place], [place] Glucose [Mass/Vol] 76 70-100 mg/dL Normal 09-04-2019 [facility] (28379) Comment: Performed By: #### BMP3M, MG 3, HEMOG #### [facility] [address] [place], [place] Urea nitrogen [Mass/Vol] 10 7-20 mg/dL Normal 09-04 [facility] (85082) Comment: Performed By: #### BMP3M, MG 3, HEMOG #### [facility] [address] [place], [place] Creatinine [Mass/Vol] 0.81 0.52-1.25 mg/dL Normal 09-04-20 19 [facility] (95384) Comment: Performed By: #### BMP3M, MG 3, HEMOG #### [facility] [employer] [facility] [place] [address] [address] [place], [place] GFR/1.73 sq M > 60.0 >60 mL/min/{1.73_m2} Normal 9 [facility] predicted among Syst em (13668) blacks MDRD (S/P/Bld) [Vol rate/Area] Comment: Performed By: #### BMP3M, MG 3, HEMOG #### [facility] [employer] [facility] [place] [address] [address] [place], [place] GFR/1.73 sq M > 60.0 >60 mL/min/{1.73_m2} Normal 9 [facility] predicted among Syst em (91245) non-blacks MDRD (S/P/Bld) [Vol rate/Area] Comment: Result Comment: Source- MDRD equation with creatinine calibration to IDMS(NKDEP) eGFR not recommended for dylon g dose adjustment Performed By: #### BMP3M, MG 3, HEMOG #### [facility] [employer] [facility] [place] [address] [address] [place], [place] Sodium [Moles/Vol] 138 135-145 mmol/L Normal 09-04-2019 [facility] (55763) Comment: Performed By: #### BMP3M, MG 3, HEMOG #### [facility] [address] [place] [address] Chloride [Moles/Vol] 103 98-107 mmol/L Normal 9 [facility] (75325) Comment: Performed By: #### BMP3M, MG 3, HEMOG #### [facility] [address] [place] [address] cr abdomen ap on 01-09-21 CR Abdomen AP Patient Name: SALLY VARGAS 09-03-2019 [facility] (48790 ) Diagnostic Radiology Exam Date/Time 09/03/2019 17:35:36 EST Exam CR Abdomen AP Ordering Physician MD RACH,CONCHIS Ha Accession Number [id number] CPT4 Codes 05712 () Reason For Exam nephrolithiasis Report ABDOMEN, [...] on 2019-08-03 [facility] Letter Text Normal 08-03-2019 [facility] (16472) xr sacrum/coccyx 3v ap/lat on 2019-07-21 XR SACRUM/COCCYX 3V * * *Final Report* * * Normal 07-21-2019 [place] AP/LAT DATE OF EXAM: Jul 21 2019 11:38AM [facility] WOX 5246 - XR SACRUM/COCCYX 3V AP/LAT / 4 [place] PROCEDURE REASON: multiple diagnoses (04190) * * * * Physician Interpretation * [...] BONY ABNORMALITY IN THE PELVIS SEGMENT COCCYX. Superintendent Police: [facility]BIN[facility] Transcribe Date/Time: Jul 21 2019 4:01P Dictated by : ESTEE CUMMINGS MD This examination was interpreted and the report reviewed and electronically signed by: ESTEE CUMMINGS MD on Jul 21 2019 4:06PM EST [id number] xr lumbar 3v ap/lat/l5-s1 on 2019-07-21 XR LUMBAR 3V * * *Final Report* * * Normal 11-0 [place] AP/LAT/L5-S1 DATE OF EXAM: Jul 21 2019 11:38AM Clinic WOX 5228 - XR LUMBAR 3V AP/LAT/L5-S1 / [place] PROCEDURE REASON: multiple diagnoses (18807) * * * * Physician Interpretation * [...] BONY ABNORMALITY IN THE PELVIS SEGMENT COCCYX. Superintendent Police: HERMINIO Transcribe Date/Time: Jul 21 2019 4:01P Dictated by : ESTEE CUMMINGS MD This examination was interpreted and the report reviewed and electronically signed by: ESTEE CUMMINGS MD on Jul 21 2019 4:06PM EST [id number] tsh on 2019-07-21 TSH Qn 1.510 0.270-4.200 uU/mL Normal 07-21-2019 [facility] (46212) Comment: Result Comment: If the patie nt is , TSH reference range varies by gestational period: First Trimester (weeks 9-12) : 0.180-2.990 mcIU/mL Second Trimester: 0.110-3.98 0 mcIU/mL Third Trimester: 0.480-4.710 mcIU/mL Leander Hills et al. A Practica l Approach for the Verifications and Determination of Site- and Trimester-Specific Reference Intervals for Thyroid Function tests in . Thyroid, 2019:29:3:412-420. Al laurel E, et al. 2017 Guide lines of the [place] Thy[employer] for the Diagnosis and Management of Thyroid Disease during and the . Thyroid, 2017:27:3:315-389. Performed By: #### MORIAH, TS H, HBA1C ####[facility] [id number] [place] [address] [phone] progress on 2019-07 PROGRESS HNO ID: [id number] Normal 07-21-2019 [facility] Author: Elena Millard [facility] (09135) Service: ? Author Type: ? Type: Progress Notes Filed: 07/21/2019 11:38 AM Note Text: Radiology Service Progress Note PATIENT NAME: Sally Vargas DATE OF SERVICE: July 21, 2019 TIME: [...] 21, 2019 11:23 AM PROGRESS HNO ID: [id number] Normal 07-21-2019 [facility] Author: uAstinPaRex) Hugo Lara ([id number]) Service: ? 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 No pain. No elevated LFTs on 03/11/2010. - Calculus of kidney 05/17/[address] Nicolas: Hospitalized age 20, and again later -- no procedures so far ([facility], [facility], 1995 [facility]) - Dysmenorrhea - Impaired fasting glucose [...] removed - TOTAL ABDOM HYSTERECTOMY 08/31/06 Hysterectomy, [facility] Family History FAMILY HISTORY Problem Relation Age [...] Yes Partners: Male control/protection: Surgical Comment: MICHELINE Lifestyle Physical activity: Days per week: Not on file Minutes per session: Not on file Stress: Not on file Relationships Social connections: Talks on phone: Not on file Gets together: Not on file Attends voodoo service: Not on file Active member of [...] Cholesterol [Mass/Vol] 206 <200 mg/dL High 019 [facility] (28914) Comment: Result Comment: <200 mg/dL, Desirable 200-239 mg/dL, Borderline hi gh >239 mg/dL, High Performed By: #### LIPNF, TS H, HBA1C ####[facility] [id number] [place], [place] [address] [phone] Cholesterol in 2.39 <2.54 mg/dL Normal 07-21-2019 [facility] LDL/Cholesterol in HDL [[facility] (91763) ratio] Comment: Result Comment: Reference: 1. National Cholesterol Educ ation Program ATP III Guideline At-A-Glance Quick Desk Reference: National Heart, Lung, and Blood Bath. National Institutes of Health. 2001: NIH Publication No. 01-3305. 2. An International Atherosc lerosis Society position paper: global recommendations for the management of dyslipidemia: executive summary, Atherosclerosis. 2014: 232(2):410-413. Performed By: #### LIPCARMELITA, TS H, HBA1C ####[facility] [address] [phone] Cholesterol.total/Cholesterol in 4.04 <5.10 mg/dL Normal 07-21-2019 [place] HDL [Mass ratio] [facility], [facility] ([id number]) Comment: Performed By: #### LIPCARMELITA, TS H, HBA1C ####[facility] [place] [address] [phone] HDL Cholesterol, NF 51 >39 mg/dL Normal 07-21-2019 [facility] ([id number]) Comment: Result Comment: 40-59 mg/dL, Acceptable >59 mg/dL, High: Negative ri sk factor for coronary heart disease <40 mg/dL, Low: Positive ris k factor for coronary heart disease Performed By: #### LIPCARMELITA, TS H, HBA1C ####[place] [id number] [place] [address] [phone] LDL Cholesterol, NF 122 <100 mg/dL High 07-21-2019 [facility] ([id number]) Comment: Result Comment: <100 mg/dL, Optimal 100-129 mg/dL, Near optimal/ above optimal 130-159 mg/dL, Borderline hi gh 160-189 mg/dL, High >189 mg/dL, Very high Secondary prevention optimal LDL Cholesterol levels are recommended to be < 70 mg/dL Performed By: #### LIPCARMELITA, TS H, HBA1C ####[facility] [place] [address] [phone] Non HDL Chol, NF 155 <130 mg/dL High 07-21-2019 [facility] ([id number]) Comment: Result Comment: <130 mg/dL, Optimal 130-159 mg/dL, Near optimal/ above optimal 160-189 mg/dL, Borderline hi gh 190-219 mg/dL, High >219 mg/dL, Very high Secondary prevention optimal non HDL Cholesterol levels are recommended to be < 100 mg/dL Performed By: #### LIPNF, TS H, HBA1C ####[facility] [place] [address] [phone] Triglycerides, NF 163 <150 mg/dL High 07-21-2019 [facility] ([id number]) Comment: Result Comment: <150 mg/dL, Normal 150-199 mg/dL, Borderline hi gh 200-499 mg/dL, High >499 mg/dL, Very high Performed By: #### LIPNF, TS H, HBA1C ####[facility] [place] [address] [phone] VLDL Cholesterol, NF 33 <30 mg/dL High 9 [facility] ([id number]) Comment: Performed By: #### LIPNF, TS H, HBA1C ####[place] [id number] [place] [address] [phone] hemoglobin a1c on 2 HbA1c (Bld) [Mass fraction] 105 mg/dL Normal [facility] ([id number]) Comment: Result Comment: eAG: (Estima arnie average glucose) is a calculated value from HgbA1c and is sales representative jewelry of the average blood glucose level in the last 2-3 month period. Performed By: #### LIPNF, TS H, HBA1C ####[place] [id number] [place] [address] [phone] HbA1c (Bld) [Mass fraction] 5.3 4.3-5.6 % Normal [facility] ([id number]) Comment: Result Comment: [place] Marya betes Association guidelines indicate that patients with HgbA1c in the range 5.7-6.4% are at increased risk for development of diabetes, and intervention by lifestyle modification may be beneficial. HgbA1c greater o r equal to 6.5% is considered diagnostic of diabetes. Performed By: #### LIPNF, TS H, HBA1C ####[facility] [place] [address] [phone] cnov on 2019-07-21 CNOV Office Visit (FAMPWS) Normal 07-21-20 19 [place] [facility] SALLY VARGAS ([id number]) 1980 F [place] Date Time Provider Department ([id number]) 07/21/19 10:40 AM JAY ARIAS) RAMA During your visit today, we recorded the following informati on about you: Pulse Respiration Blood pressure Weight 80/minute 16/minute 110/64 88 kg ISABEL ARIAS PA-C 07/21/2019 11:26 AM Signed Chief Complaint Patient presents with: Recheck: Patient is here for follow up on headaches Fall: Patient fell in shower 2 weeks; still having lower radha k pain HPI Sally Vargas is a 38 year old female who [...] Past medical history, appointments, medications, allergies r prosperwebenito. Previous Medical History PAST MEDICAL HISTORY Diagnosis Date - Allergic rhinitis, cause unspecified 05/17/2008 Spring and summer - Benign liver cyst 05/24/2010 CT scan at [facility] 11/2009 and 04/2010 showe 4 mm increase in size . No pain. No elevated LFTs on 03/11/2010. - Calculus of kidney 05/17/[address] Nicolas: Hospitalized age 20, a nd again later -- no procedures so far ([facility] [place], [facility]) - Dysmenorrhea - Impaired fasting glucose [...] removed - TOTAL ABDOM HYSTERECTOMY 08/31/06 Hysterectomy, [facility] Family History FAMILY HISTORY Problem Relation Age [...] Yes Partners: Male control/protection: Surgical Comment: MICHELINE Lifestyle Physical activity: Days per week: Not on file Minutes per session: Not on file Stress: Not on file Relationships Social connections: Talks on phone: Not on file Gets together: Not on file Attends voodoo service: Not on file Active member of [...] (METRONIDAZOLE HCL) 03/11/2010 12 - Shortness of [place] th IBUPROFEN 06/18/2016 8 - GI Upset [...] cardiovascular disease [Z13.220, Z13.6] Order(s):CONSULT TO NEUROLOGY [9025] Order #: [id number]: 1 FUTURE amitriptyline (ELAVIL) 50 mg tabletTake 1 tablet by mouth da federico at bedtime.Disp: 30 tabletRfl: 5 XR LUMBAR GENERAL 3V AP/LAT/L5-S1 [[id number]] Order #: [id number] FUTURE XR SACRUM/COCCYX 3V AP/LAT [7423981] Order #: [id number] FUT URE TSH BLD [SQTSH] Order #: [id number] FUTURE HGB A1C [ADUZB6K] Order #: [id number] FUTURE LIPID PANEL, NONFASTING [SQLIPNF] Order #: [id number] FUTURE cyclobenzaprine (FLEXERIL) 10 mg tabletTake 1 [...] - 3. Body Temperature 97.81 [degF] 05-17-2020 [facility] ([id number]) Body Temperature 97.9 [degF] 05-08-2020 [facility] (46775) Body weight 89.9 kg 05-17-2020 [facility] (65257) Body weight 93.89 kg 05-08-2020 [facility] (24369) BP Diastolic 82 mm[Hg] 05-17-2020 [facility] (33426) BP Diastolic 76 mm[Hg] 05-08-2020 [facility] (68042) BP Systolic 124 mm[Hg] 05-17-2020 [facility] ([id number]) BP Systolic 121 mm[Hg] 05-08-2020 [facility] (14003) Height 154.9 cm 05-08-2020 [facility] (54431) Pulse (Heart Rate) 86 /min 05-17-2020 [place] [facility] (09205) Pulse (Heart Rate) 91 /min 05-08-2020 [place] [facility] (14815) Pulse Oximetry 97 % 05-08-2020 [facility] (11173) Respiratory Rate 16 /min 05-17-2020 [facility] [facility] (84527) Respiratory Rate 18 /min 05-08-2020 [facility] [facility] (42649) Encounters Date Type Reason Provider Location 06-25-2020 - Chart abstracting Postoperative pain Mala [facility] 06-25-2020 [facility] DEPART[facility] Comment: Refill Request 05-23-2020 - E-mail encounter Isabel Romero) [facility] 05-23-2020 from jackie Arias 03-24-2020 - Emergency Migraine, CORBY Eddy Mello Johnston 03-24-2020 department unspecified, not [facility] patient visit CORBY frazier ([id number]) without [facility] CORBY [facility] ISABEL ARIAS UNKNOWN PROVIDER 01-21-2020 - Emergency ANA Johnston 01-21-2020 department [facility] al patient visit ANA ALVARADO ([id number]) JENNIFER ARIAS UNKNOWN PROVIDER 11-25-2019 - Emergency ANA Johnston 11-25-2019 department [facility] al patient visit ANA ALVARADO ([id number]) JENNIFER ARIAS UNKNOWN PROVIDER 10-31-2019 - Emergency Lower abdominal NIKHIL E Mello Moreira shiva 10-31-2019 department pain, [facility] al patient visit unspecified NIKHIL Shannon ([id number]) JEAN ESTRADA PROVIDER 04-26-2020 - Letter encounter Johnny [facility]cc[facility] 04-26-2020 [place] 05-14-2020 - Orders Only Liver cyst Johnny Mccall Gastroenterolog [facility] 05-14-2020 [place] Comment: Liver cyst (Primary Dx) 05-11-2020 - Orders Only Idiopathic acute Johnny Mccall [facility] [place] 05-11-2020 pancreatitis Winn Comment: Idiopathic acute pancreatiti s, unspecified complication status (Primary Dx) surgical referral 05-10-2020 - Orders Only Idiopathic acute Johnny Mccall [facility] [place] 05-10-2020 pancreatitis Winn Comment: Idiopathic acute pancreatiti s, unspecified complication status (Primary Dx) 06-05-2020 - Patient encounter Cyst of pancreas Mala [facility] 06-05-2020 procedure [facility] Comment: Pancreatic cyst (Primary Dx) 05-30-2020 - Patient [facility] Provider Marco [facility] c 05-30-2020 encounter procedure 05-24-2020 - Patient Abdominal Johnny Mccall Gastroenterolog y 05-24-2020 encounter bloating [facility] procedure Comment: Bloating (Primary Dx); Nausea and vomiting, intract ability of vomiting not specified, unspecified vomiting type; Diarrhea, unspecified type 05-23-2020 Patient encounter Postoperative pain Isabel Romero) [facility] procedure Hugo Underwood Comment: RE: Appointment Request 05-17-2020 - Patient encounter Shoulder pain Kenia (Compliance Analyst) [place] [facility] 05-17-2020 procedure Workman Xr [facility] Care [place] Comment: Acute pain of right shoulder (Primary Dx) Radiology XR 04-30-2020 - Patient encounter Generalized abdominal Us [facility] Wstr R adiology 04-30-2020 procedure pain Mob 1 Comment: Radiology US 06-28-2020 - 06-28-2020 Refill Postoperative pain Mala BOOKER PROVIDER ADULT Comment: Refill Request 06-26-2020 - 06-26-2020 Refill Johnny Mccall [facility] [place] Comment: Refill Request 05-30-2020 Results Only [facility]cf Provider Marco [facility] Department 05-08-2020 - Subsequent Generalized Johnny Mccall Ambulatory 05-08-2020 hospital visit by abdominal pain [facility] Surgery physician Comment: Generalized abdominal pain [ R10.84] 06-05-2020 - Telemedicine Mala Almendarez [place] [facility] 06-05-2020 consultation with patient 05-24-2020 - Telemedicine Johnny Mccall [place] [facility] 05-24-2020 consultation with Pa patient 06-15-2020 - Telephone encounter Local infection Taty (Repairer [employer] Furniture [facility] 06-15-2020 of wound Compliance Analyst) [facility] DEPARTMENT Comment: Multiple Concerns 05-31-2020 - Telephone encounter Johnnyvivienne Mccall [facility] [place] 05-31-[address] [facility] Comment: Patient Update 05-18-2020 - Telephone Shoulder pain Marcelino Mejia [facility] zacharyne 05-18-2020 encounter [place] Comment: Referral Request 05-07-2020 - Telephone encounter Johnny Mccall [facility] [place] 05-07-[address] [facility] Comment: Patient Update 05-01-2020 - Telephone encounter Johnny Mccall [facility] [place] 05-01-[address] [facility] Comment: Results 04-30-2020 - Telephone encounter Johnny Mccall [facility] [place] 04-30-[address] [facility] Comment: Returning Patient's Call 04-27-2020 - 04-27-2020 Telephone encounter Marcelino Mejia [facility] [place] Comment: Medication request Procedures Procedure Name Date Provider Location Antibody screen 06-11-2020 [facility] ([id number]) Comment: Performed By: #### CBCD1 ### # [place] [address] CARDIAC 05-30-2020 [facility] Provider [facility] ([id number]) Radex shoulder complete minimum 2 05-17-2020 - Kenia (Compliance Analyst) [facility] views 05-17-2020 Workman ([id number]) SURGICAL PATHOLOGY 05-08-2020 Johnny Mccall [place] [facility] ([id number]) Colonoscopy flx dx w/collj spec 05-08-2020 C[facility] Provider [facility] when pfrmd ([id number]) Esophagogastroduodenoscopy 05-08-2020 Ccf Provider [facility] transoral diagnostic ([id number]) Us abdominal real time w/image 04-30-2020 - Johnny Burks [facility] limited 04-30-[address] [facility] ([id number]) Urinalysis 10-31-2019 [facility] ([id number]) Comment: Result Comment: URINALYSIS Performed By: #### [id number] ## ## [facility],[address] [place] [address] Plan of Treatment Plan Description Date Location DTAP,TDAP,TD (2 - Td) DTAP,TDAP,TD (2 - Td) 05-28-2025 - [facility] 05-28-2025 ([id number]) INFLUENZA (#1) INFLUENZA (#1) 2020 - [facility] 05-15-2020 ([id number]) MAMMOGRAM MAMMOGRAM 2019 - [facility] 2019 ([id number]) COLONOSCOPY COLONOSCOPY 1997 - [facility] 1997 (58981) HEPATITIS C SCREENING HEPATITIS C SCREENING 1997 - [facility] 1997 (84657) HIV SCREENING HIV SCREENING 1997 - [facility] 1997 ([id number]) COLONOSCOPY - COLONOSCOPY - DIAGNOSTIC 05-08-2020 [facility] DIAGNOSTIC Endoscopy Routine (52815) Generalized abdominal pain Loose stools Dyspepsia Gastroesophageal reflux disease, esophagitis presence not specified Other dysphagia History of acute pancreatitis Bloating Nausea and vomiting, intractability of vomiting not specified, unspecified vomiting type 1 Occurrences starting 05/08/2020 until 05/08/2020 Comment: 1 Occurrences starting 05/08 until 05/08/2020 EGD EUS EGD EUS Endoscopy Routine Idiopathic 05-10-2021 [facility] ([id number]) acute pancreatitis, unspecified complication status 1 Occurrences starting 05/10/2020 until 05/10/2021 Comment: 1 Occurrences starting 05/10 until 05/10/2021 EGD EGD Endoscopy Routine Generalized abdominal 04-15 [facility] ([id number]) pain Loose stools Dyspepsia Gastroesophageal reflux disease, esophagitis presence not specified Other dysphagia History of acute pancreatitis Bloating Nausea and vomiting, intractability of vomiting not specified, unspecified vomiting type 1 Occurrences starting 05/08/2020 until 05/08/2020 Comment: 1 Occurrences starting 05/08 until 05/08/2020 MRI ABDOMEN WO/W IVCON MRI ABDOMEN WO/W IVCON 07-05-2021 [facility] ([id number]) Radiology Routine Pancreatic cyst 1 Occurrences starting 06/05/2020 until 07/05/2021 Comment: 1 Occurrences starting 06/05 until 07/05/2021 PRE-PROCEDURE & PRE-PROCEDURE & 05-10-2021 [facility] PRE-OPERATIVE COVID PRE-OPERATIVE COVID ([id number]) Microbiology Routine Idiopathic acute pancreatitis, unspecified complication status 1 Occurrences starting 05/10/2020 until 05/10/2021 Comment: 1 Occurrences starting 05/10 until 05/10/2021 SURGICAL PATHOLOGY SURGICAL PATHOLOGY Lab Routine [facility] ([id number]) 05/08/2020 1:17 PM EDT no information [facility] ([id number]) Immunizations Vaccine Notes Status Date Location Influenza Seasonal influenza, seasonal, (completed) 05-11-2020 - [facility] Inj Age 3+ injectable 05-11-2020 ([id number]) Influenza Seasonal influenza, seasonal, (completed) 05-31-2019 - [facility] Inj Age 3+ injectable 05-31-2019 (04635) Pneumovax pneumococcal (completed) [facility], 05-19-2017 (441 95) 23 valent Tdap (Age 7+) tetanus toxoid, reduced (completed) 05-28-2015 - [facility] diphtheria toxoid, and 05-28-2015 (4419 5) acellular pertussis vaccine, adsorbed Payers Payer Name Policy Number Location [facility] [id number] [facility] OUTPATIENT ([id number]) [place] [employer] [id number] [facility] ([phone] [id number] [facility] (88335) [id number] [facility] (40471) [id number] [facility] (96753) [id number] [facility] (54905) The following information is from the original human readable contentNo Payer Records FoundNo Payer Records FoundNo Payer Records FoundNo Payer Records FoundNo Payer Records FoundNo Payer Records FoundNo Payer Records FoundNo Payer Records FoundNo Payer Records Found Social History Type Social History Date Location Description History of tobacco use Current smoker 01-12-2017 [facility] ([id number]) Alcohol Comment Occasional 11-26-2010 - [facility] 11-26-2010 (33120) History of tobacco use Cigarette Smoker 01-12-2017 [facility] (86387) Cigarettes smoked 05-17-2020 - [place] [facility] current (pack per day) 06-08-2020 (32440) - Reported Tobacco use and Never used 05-17-2020 - [facility] exposure 06-08-2020 (07068) Alcohol intake Current drinker of 05-17-2020 - [place] [facility] alcohol (finding) 06-08-2020 (29982) Tobacco Comment Approx. 3 cigarettes 03-10-2011 - [place] [facility] daily-1 pack every week 03-10-2011 (60327) Tobacco smoking status Former smoker 05-17-2020 - [facility] NHIS 06-08-2020 (92201) Sex Assigned At Not on file [facility] (73537) Exposure to SARS-CoV-2 Not sure [facility] (event) (50736) History SDOH Financial 5 06-08-2020 - [facility] 06-08-2020 (62662) History SDOH Food Worry 1 06-08-2020 - [facility] 06-08-2020 (00276) History SDOH Transport 2 06-08-2020 - [facility] Med 06-08-2020 (17934) Exposure to SARS-CoV-2 Yes [facility] (event) ([id number]) The following information is from the original human readable contentNo Social History Records FoundNo Social History Records FoundNo Social History Records FoundNo Social History Records FoundNo Social History Records FoundNo Social History Records FoundNo Social History Records FoundNo Social History Records FoundNo Social History Records FoundNo Social History Records FoundNo Social History Records Found Instructions Patient InstructionsBartolo Kenia (Compliance Analyst) - 05/17/2020 12:23 PM EDTA/P (M25.511) Acute [...] persist/worsen in 10-14 days documented in this encounterMala Costello - 06/05/2020 4:10 PM EDTOffice will call with date and time for MRI documented in this encounter History of Present Illness Kenia Mcfarland) - 05/17/2020 11:57 AM EDT Visit Date: May 17, 2020 Patient Name: Ms.Nichole Jeana Vargas Date of : 1980 MRN/E #: [id number] Chief Complaint Patient presents with: right shoulder pain: fell in shoulder yesterday History of present illness Sally Vargas is a 39 year old female. Reports she fell in the shower yesterday and landed on her right shoulder. Has tried acetaminophen and ice for pain with little relief. She states she cannot take NSAIDs due to her reflux and heat makes the pain worse. She reports having a hx of shoulder issues. The history is provided by the patient. No speech and language tutor was used. PAIN EVALUATION 05/17/2020 1153 Pain [...] Benign liver cyst 05/24/2010 CT scan at [facility] 11/2009 and 04/2010 showe 4 mm increase in size. No pain. No elevated LFTs on 03/11/2010. ? Calculus of kidney 05/17/[address] Nicolas: Hospitalized age 20, and again later -- no procedures so far ([facility] [place] [facility]) ? Dysmenorrhea ? History of blood [...] symptoms persist/worsen in 10-14 days Kenia Mcfarland APRN.MANUELITO Discussed above plan with patient. Pt agreeable with above plan. documented in this encounterKathy Trevino Tech (Tech) - 04/30/2020 4:13 PM EDT Radiology Service Progress Note PATIENT NAME: Sally Vargas DATE OF SERVICE: April 30, 2020 TIME: [...] pancreatitis. Johnny Winn MD documented in this encounterKylee DavenportRt)Vianey - 05/17/2020 12:08 PM EDT Radiology Service Progress Note PATIENT NAME: Sally Vargas DATE OF SERVICE: May 17, 2020 TIME: [...] 17, 2020 12:08 PM documented in this encounterSJohnny mendoza - 05/24/2020 3:15 PM EDT virtual VISIT FOLLOW UP. Changed to telephone due to poor connection. I had a virtual with Ms. Vargas today for follow up of abdominal pain, [...] I had a phone consult With Ms Cavinee yesterday for right sided/upper abdominal pain, diarrhea, nausea, vomiting. I advised her to go to the ED. Patient went to [place] ED and mentions 'nothing was done. They [...] note she presented to the ED in [place] in January 2020 for abdominal pain of [address] abdomen was essentially unremarkable including pancreas. Was found to have lipase of 193 on 02/15/2020. Amylase normal. Hepatic function panel. ? Has h/o cholecystectomy in 1998. PAST MEDICAL HISTORY Diagnosis Date ? Allergic rhinitis, cause unspecified 05/17/2008 Spring and summer ? Benign liver cyst 05/24/2010 CT scan at [facility] 11/2009 and 04/2010 showe 4 mm increase in size. No pain. No elevated LFTs on 03/11/2010. ? Calculus of kidney 05/17/[address] Nicolas: Hospitalized age 20, and again later -- no procedures so far ([facility]) ? Cancer (HCC) ? Diverticulosis ? [...] ? TOTAL ABDOM HYSTERECTOMY 08/31/06 Hysterectomy, [facility] [...] compared to prior study. IMPRESSION 1. Ms Vargas with h/o gastroduodenitis on EGD, sigmoid diverticulosis on colonoscopy but otherwise poor prep, an episode of pancreatitis being evaluated for abdominal pain, diarrhea, nauesa, vomiting.Was advised to go to the ED yesterday - she went to [place] ED and was told that pancreas levels were normal - sent home with Zofran. Continues to have significant severe symptoms. R/o [...] for nausea. Advised to go to the [facility] ED if no improvement in symptoms. During this patient visit I have spent approximately 15 minutes in counseling regarding interpretation, education and coordination of care. Johnny Winn MD 3:22 PM documented in this encounterMala Almendarez - 06/05/2020 3:50 PM EDTAMBULATORY TELEPHONE VISIT Sally Vargas has consented to this telephone encounter. Persons [...] Mala Almendarez MD documented in this encounter Assessments Diagnosis Acute pain of right shoulder - Primary Idiopathic acute pancreatitis, unspecifi ed complication status Diagnosis Generalized abdominal pain Abdominal pain, generalized [...] - Primary Other acute postoperative pain Diagnosis Post-op pain - Primary Other acute postoperative pain Advance Directives No Advanced Directives Records Found Documents on File Type Date Recorded Patient Boot Trimmer Explanati on Advance Directive(s) 05/08/2020 12:13 PM Documents on File Type Date Recorded Patient Boot Trimmer Explanati on Advance Directive(s) 05/08/2020 12:13 PM Documents on File Type Date Recorded Patient Boot Trimmer Explanati on Advance Directive(s) 05/08/2020 12:13 PM Advance Directive(s) 05/25/2020 7:47 AM Documents on File Type Date Recorded Patient Boot Trimmer Explanati on Advance Directive(s) 05/08/2020 12:13 PM Advance Directive(s) 05/25/2020 7:47 AM Documents on File Type Date Recorded Patient Boot Trimmer Explanati on Advance Directive(s) 05/08/2020 12:13 PM Advance Directive(s) 05/25/2020 7:47 AM Advance Directive(s) 06/08/2020 9:30 AM Documents on File Type Date Recorded Patient Boot Trimmer Explanati on Advance Directive(s) 05/08/2020 12:13 PM Advance Directive(s) 05/25/2020 7:47 AM Advance Directive(s) 06/08/2020 9:30 AM Documents on File Type Date Recorded Patient Boot Trimmer Explanati on Advance Directive(s) 05/08/2020 12:13 PM Advance Directive(s) 05/25/2020 7:47 AM Advance Directive(s) 06/08/2020 9:30 AM Advance Directive(s) 06/19/2020 3:44 PM Documents on File Type Date Recorded Patient Boot Trimmer Explanati on Advance Directive(s) 05/08/2020 12:13 PM Advance Directive(s) 05/25/2020 7:47 AM Advance Directive(s) 06/08/2020 9:30 AM Advance Directive(s) 06/19/2020 3:44 PM Summary Purpose Family History No Family History Records FoundNo Family History Records FoundNo Family History Records FoundNo Family History Records FoundNo Family History Records FoundNo Family History Records Found Reason for Referral Status Reason Specialty Diagnoses / Referred By Referred To Procedures Contact Contact Authorized PCP Requested General Surgery Diagnoses Liver cyst Winn Mala Cortés Referral Procedures CONSULT TO GENERAL SURGERY NEW PATIENT VISIT LEVEL 5 [address] [place] [address] [id number] Phone: Fax: Status Reason Specialty Diagnoses / Referred By Referred To Procedures Contact Contact Authorized PCP Requested Orthopedics Diagnoses Acute shoulder pain, unspecified laterality Marcelino Mejia Referral Procedures CONSULT TO ORTHOPAEDICS NEW PATIENT VISIT LEVEL 5 [address] [place] [address] Status Reason Specialty Diagnoses / Referred By Referred To Procedures Contact Contact Pending Review Auto-Generated MR IMAGING Diagnoses Pancreatic cyst Mala Almendarez Mr Imaging Referral Procedures MRI ABDOMEN WO/W IVCON MRI,ABDOMEN,W&WO CONTRS [address] [facility] [address] [place] [address] Status Reason Specialty Diagnoses / Procedures Referred By Kimmie davis Referred To Contact Closed Diagnoses Post-op pain Mala Almendarez [address] [facility] [address] [place] [address] Phone: Health Concerns Infection Onset Date Last Indicated [...] BE BASED ON THE PRIMARY CLINICAL RECORDS. [facility] provides no warranty or guarantee of the accuracy or completeness of information in this document. UNRECOGNIZED CONTENT PROVIDED BELOW FOR UNRECOGNIZED SECTION Source Comments In the event this information is protected by the Federal Confidentiality of Alcohol and Drug Abuse Patient Records regulations: The Federal rules restrict any use of the information to criminally investigate or prosecute any alcohol or drug abuse patient.[facility] CenterIn the event this information is protected by the Federal Confidentiality of Alcohol and Drug Abuse Patient Records regulations: The Federal rules restrict any use of the information to criminally investigate or prosecute any alcohol or drug abuse patient.[facility] CenterIn the event this information is protected by the Federal Confidentiality of Alcohol and Drug Abuse Patient Records regulations: The Federal rules restrict any use of the information to criminally investigate or prosecute any alcohol or drug abuse patient.[facility] CenterIn the event this information is protected by the Federal Confidentiality of Alcohol and Drug Abuse Patient Records regulations: The Federal rules restrict any use of the information to criminally investigate or prosecute any alcohol or drug abuse patient.[facility] CenterIn the event this information is protected by the Federal Confidentiality of Alcohol and Drug Abuse Patient Records regulations: The Federal rules restrict any use of the information to criminally investigate or prosecute any alcohol or drug abuse patient.[facility] CenterIn the event this information is protected by the Federal Confidentiality of Alcohol and Drug Abuse Patient Records regulations: The Federal rules restrict any use of the information to criminally investigate or prosecute any alcohol or drug abuse patient.[facility] CenterIn the event this information is protected by the Federal Confidentiality of Alcohol and Drug Abuse Patient Records regulations: The Federal rules restrict any use of the information to criminally investigate or prosecute any alcohol or drug abuse patient.[facility] CenterIn the event this information is protected by the Federal Confidentiality of Alcohol and Drug Abuse Patient Records regulations: The Federal rules restrict any use of the information to criminally investigate or prosecute any alcohol or drug abuse patient.[facility] CenterIn the event this information is protected by the Federal Confidentiality of Alcohol and Drug Abuse Patient Records regulations: The Federal rules restrict any use of the information to criminally investigate or prosecute any alcohol or drug abuse patient.[facility] CenterIn the event this information is protected by the Federal Confidentiality of Alcohol and Drug Abuse Patient Records regulations: The Federal rules restrict any use of the information to criminally investigate or prosecute any alcohol or drug abuse patient.[facility] CenterIn the event this information is protected by the Federal Confidentiality of Alcohol and Drug Abuse Patient Records regulations: The Federal rules restrict any use of the information to criminally investigate or prosecute any alcohol or drug abuse patient.[facility] CenterIn the event this information is protected by the Federal Confidentiality of Alcohol and Drug Abuse Patient Records regulations: The Federal rules restrict any use of the information to criminally investigate or prosecute any alcohol or drug abuse patient.[facility] CenterIn the event this information is protected by the Federal Confidentiality of Alcohol and Drug Abuse Patient Records regulations: The Federal rules restrict any use of the information to criminally investigate or prosecute any alcohol or drug abuse patient.[facility] CenterIn the event this information is protected by the Federal Confidentiality of Alcohol and Drug Abuse Patient Records regulations: The Federal rules restrict any use of the information to criminally investigate or prosecute any alcohol or drug abuse patient.[facility] CenterIn the event this information is protected by the Federal Confidentiality of Alcohol and Drug Abuse Patient Records regulations: The Federal rules restrict any use of the information to criminally investigate or prosecute any alcohol or drug abuse patient.[facility] CenterIn the event this information is protected by the Federal Confidentiality of Alcohol and Drug Abuse Patient Records regulations: The Federal rules restrict any use of the information to criminally investigate or prosecute any alcohol or drug abuse patient.[facility] CenterIn the event this information is protected by the Federal Confidentiality of Alcohol and Drug Abuse Patient Records regulations: The Federal rules restrict any use of the information to criminally investigate or prosecute any alcohol or drug abuse patient.[facility] CenterIn the event this information is protected by the Federal Confidentiality of Alcohol and Drug Abuse Patient Records regulations: The Federal rules restrict any use of the information to criminally investigate or prosecute any alcohol or drug abuse patient.[facility] CenterIn the event this information is protected by the Federal Confidentiality of Alcohol and Drug Abuse Patient Records regulations: The Federal rules restrict any use of the information to criminally investigate or prosecute any alcohol or drug abuse patient.[facility] CenterIn the event this information is protected by the Federal Confidentiality of Alcohol and Drug Abuse Patient Records regulations: The Federal rules restrict any use of the information to criminally investigate or prosecute any alcohol or drug abuse patient.[facility] CenterIn the event this information is protected by the Federal Confidentiality of Alcohol and Drug Abuse Patient Records regulations: The Federal rules restrict any use of the information to criminally investigate or prosecute any alcohol or drug abuse patient.[facility] CenterIn the event this information is protected by the Federal Confidentiality of Alcohol and Drug Abuse Patient Records regulations: The Federal rules restrict any use of the information to criminally investigate or prosecute any alcohol or drug abuse patient.[facility] CenterIn the event this information is protected by the Federal Confidentiality of Alcohol and Drug Abuse Patient Records regulations: The Federal rules restrict any use of the information to criminally investigate or prosecute any alcohol or drug abuse patient.[facility] CenterIn the event this information is protected by the Federal Confidentiality of Alcohol and Drug Abuse Patient Records regulations: The Federal rules restrict any use of the information to criminally investigate or prosecute any alcohol or drug abuse patient.[facility] CenterIn the event this information is protected by the Federal Confidentiality of Alcohol and Drug Abuse Patient Records regulations: The Federal rules restrict any use of the information to criminally investigate or prosecute any alcohol or drug abuse patient.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 Johnny Winn, Johnny ENDOSCOPY Procedures COLONOSCOP W/ OR W/O BRSH SPEC EGD W/O OR W/BRUSH/WASH COLONOSCOPY W/EGD [place] [address] [place], [place] [address] Phone: [place], [place] [phone] Fax: Reason Onset Date Comments Patient Update 05/07/2020 Reason Comments Radiology XR Reason Onset Date Comments Referral Request 05/18/2020 Reason Comments Nausea & Vomiting Reason Onset Date Comments surgical referral 05/11/2020 Reason Onset Date Comments Patient Update 05/31/2020 Reason Comments New Patient Reason Onset Date Comments Multiple Concerns 06/15/2020 Reason Onset Date Comments Refill Request 06/25/2020 Reason Onset Date Comments Refill Request 06/26/2020 Reason Onset Date Comments Refill Request 06/28/2020 UNRECOGNIZED CONTENT PROVIDED BELOW FOR UNRECOGNIZED SECTION INFORMATION SOURCE DATE CREATED AUTHOR AUTHOR'S ORGANIZATIO N 10/21/2019 [facility] DATE CREATED AUTHOR AUTHOR'S ORGANIZATIO N 04/06/2020 [facility] DATE CREATED AUTHOR AUTHOR'S ORGANIZATIO N 02/26/2020 [facility] ([place]) DATE CREATED AUTHOR AUTHOR'S ORGANIZATIO N 06/21/2020 [facility] DATE CREATED AUTHOR AUTHOR'S ORGANIZATIO N 06/27/2020 [facility] DATE CREATED AUTHOR AUTHOR'S ORGANIZATIO N 06/28/2020 [facility] UNRECOGNIZED CONTENT PROVIDED BELOW FOR [...] pcp would send Rx for phenergan to [facility]. Reports she's had nausea for weeks. Saw GI yesterday, and has scheduled an EGD and colonoscopy. Reports the GI specialist tells her there is something wrong with her digestive system. documented in this encounterTelephone Encounter - Pierce Schwartz Ma - 04/30/2020 12:15 PM EDT Tried to return call, voicemaill full Pierce Schwartz MA documented in this encounterTelephone Encounter - Pierce Schwartz Ma - 05/01/2020 3:46 PM EDTTried to call patient voicemail is full. Also noted celiac panel was not drawn, left message with [facility] to contact patient for redraw Pierce Schwartz CMA elephone Encounter - Pierce Schwartz Ma - 05/01/2020 3:46 PM EDT----- Message from [...] documented in this encounterTelephone Encounter - Pierce Schwartz Ma - 05/07/2020 11:59 AM EDT FYI- [...] did not draw the celiac panel. Pierce Schwartz CMA elephone Encounter - Pierce Schwartz Ma - 05/07/2020 11:59 AM EDT----- Message from Johnny Winn sent at 05/01/2020 2:57 PM EDT ----- Normal IgG Will need EUS for unexplained pancreatitis. Johnny Winn MD documented in this encounterTelephone Encounter - Yvette Taylor RN - 05/18/2020 9:09 AM EDTPt called, verified by name and birthdate. Patient notified of provider's instructions. Patient verbalizes understanding. Pt transferred to PSR to schedule ortho apt Yvette Taylor RN elephone Encounter - Branden Sanders Ma [...] for 20 min elephone Encounter - Yvette Taylor RN - 05/18/2020 8:18 AM EDTPt called, [...] will help with pain. Please advise Yvette Taylor RN documented in this encounterTelephone Encounter - Eleanor Cohen - 05/11/2020 3:43 PM EDTShe is scheduled for egd/eus for You had aslo mentioned seeing a surgeon for liver cysts I need the consult in epic Thank you Shahla documented in this encounterTelephone Encounter - Pierce Schwartz Ma - 05/31/2020 2:36 PM EDTPatient call, said she was doing ok yesterday, today having epigastric abdominal pain, nausea and vomiting. Has appt with Dr. Almendarez next week. Advised ER consult due to worsening of symptoms. Pierce Schwartz MA documented in this encounterTelephone Encounter - Taty Perea Cnp) - 06/15/2020 11:19 AM EDTPatient called the [...] worsen or do not improve. Taty Perea APRN NURSE SANE documented in this encounterTelephone Encounter - Narcisa Baron LPN - 06/26/2020 12:52 PM EDT Pharmacy phones requesting refills as follows: Pending Prescriptions Disp Refills HYOSCYAMINE SULFATE 0.125 MG TABLET 60 tablet 1 Sig: Take 1 tablet by mouth every 6 hours as needed. LIGIA: No Please review and advise. Narcisa Baron LPN documented in this encounter UNRECOGNIZED CONTENT PROVIDED BELOW FOR UNRECOGNIZED SECTION H&P Johnny Pete - 05/08/2020 1:30 PM EDTHISTORY AND PHYSICAL Sally Vargas, 39 year old female here for EGD/colonoscopy [...]
--- OUTSIDE RECORDS SUMMARY | 2020-07-01 09:07 | XMS RPT_ITS | CCD ---
:1980 External Reference #:[id number] Author Organization [facility] Care Team Providers Name Role Phone Hanna Mejia Primary Care Provider Hanna Mejia Unavailable JEAN, E Admitting Unavailable JEANShiva RICE Attending Unavailable MD ROOSEVELT Referring Unavailable Shiva EPNA Primary Care Unavailable CHAZ ARIAS Consulting Unavailable [...] Cephalexin Itching 10-20-2019 - [facility] ([id number]) Chlorhexidine Rash 10-29-2016 - [facility] (91605) CONTRAST MEDIA, Moderate Mello Pomeren e IODINE RELATED ([facility]) Repository (Qualifier Value) Ibuprofen GI Upset Low 06-18-2016 - [facility] (59153) Ibuprofen Moderate Mello Pomerene ([facility]) Repository (Qualifier Value) Iodine Shortness of Breath Low 05-17-2008 - [facility] (79304) Ketorolac Moderate Mello Pomerene ([facility]) Repository (Qualifier Value) Ketorolac Rash 05-25-2020 - [facility] (57752) metroNIDAZOLE Moderate Mello Pomerene ([facility]) Repository (Qualifier Value) Penicillins Rash Moderate [facility]10[facility] Penicillins Moderate Mello Pomerene ([facility]) Repository (Qualifier Value) predniSONE Other: See Comments Low 06-18-2016 [facility] (45502) Promethazine Moderate Mello Pomerene ([facility] Mod[facility]) Repository (Qualifier Value) Salicylic Acid Other: See Comments Low 01-27-2011 - [facility] (73911) traMADol Rash 05-25-2020 - [facility] (28065) Medications Medication Name Sig Date Prescriber Location Albuterol albuterol HFA (VENTOLIN [facility] Provider [facility] (93181) HFA) 90 mcg/actuation inhaler Inhale 2 Puffs as instructed every 4 hours as needed. 0 Active Comment: Inhale 2 Puffs as instructed every 4 hours as needed. Bifidobacterium Bifidobacterium 04-26-2020 - Johnny [facility] Inf[facility] Infantis (ALIGN) 4 mg 07-25-2020 [facility] (72868) cap Take 1 capsule by mouth once daily. 30 capsule 2 04/26/2020 07/25/2020 Active Comment: Take 1 capsule by mouth once daily. Clindamycin clindamycin (CLEOCIN) 06-15-2020 - Jonh (Res) [facility] 300 mg capsule 06-26-2020 [facility] (17904) Indications: Incisional infection Take 1 capsule by mouth four times daily for 5 days. 20 capsule 0 06/21/2020 06/26/2020 Active Comment: Take 1 capsule by mouth four times daily for 5 days. diazePAM diazePAM (VALIUM) 5 mg 06-05-2020 - [facility] tablet Indications: 06-07-2020 Mala [facility] (22324) Pancreatic cyst Take 1 tablet by mouth once daily for 2 days. 2 tablet 0 06/05/2020 06/07/2020 Active Comment: Take 1 tablet by mouth once daily for 2 days. Dicyclomine dicyclomine (BENTYL) 04-26-2020 - Johnny Mccall [facility] 10 mg capsule Take 1 05-24-2020 [facility] (86146) capsule by mouth before meals and at bedtime. Use as directed 90 capsule 1 04/26/2020 05/24/2020 Discontinued Comment: Take 1 capsule by mouth befo re meals and at bedtime. Use as directed diphenhydrAMINE diphenhydrAMINE (BENADRYL) 03-29-2019 [facility] Provide r [facility] 25 mg capsule Take 50 mg (44 195) by mouth every 6 hours as needed. 0 03/29/2019 Active Comment: Take 50 mg by mouth every 6 hours as needed. Docusate docusate sodium 06-21-2020 Jonh (Res) [facility] (COLACE) 100 mg capsule [place] (441 95) Take 1 capsule by mouth twice daily. 60 capsule 0 06/21/2020 Active Comment: Take 1 capsule by mouth twic e daily. Estradiol estradiol (ESTRACE) 2 mg 03-23-2020 [facility] Provider [facility] (36239) tablet Take 2 mg by mouth once daily. 0 03/23/2020 Active Comment: Take 2 mg by mouth once kehinde y. HYDROmorphone HYDROmorphone 06-28-2020 - Mala [facility] (HYDROMORPHONE) 2 mg 07-05-2020 (66453) tablet Indications: Post-op pain Take 1 tablet by mouth every 4 hours as needed for Pain for up to 7 days. 40 tablet 0 06/28/2020 07/05/2020 Active HYDROmorphone (HYDROMORPHONE) 06-12-2020 - 06-19-2020 [facility] 2 mg tablet Indications: (06881) Post-op pain Take 1 tablet by mouth [...] Hyoscyamine hyoscyamine (LEVSIN) 05-24-2020 - Johnny [facility] 0.125 mg tablet Take 06-26-2020 [facility] (81874) 1 tablet by mouth every 6 hours as needed. 60 tablet 1 06/26/2020 Active Comment: Take 1 tablet by mouth every 6 hours as needed. iv contrast (will iv contrast (will be 06-05-2020 - Mala Almendarez [facility] be provided with provided with 06-06-2020 Mala Almendarez (52712) radiology test) radiology test) MRI ABDOMEN Inject, [...] metroNIDAZOLE metroNIDAZOLE (FLAGYL) 04-26-2020 - Johnny Mccall [facility] 500 mg tablet Take 1 05-03-2020 [facility] (15878) tablet by mouth three times daily for 7 days. 21 tablet 0 04/26/2020 05/03/2020 Active Comment: Take 1 tablet by mouth three times daily for 7 days. Naloxone naloxone 4 mg/actuation 06-21-2020 Jonh (Res) Kimmie [facility] nasal spray (NARCAN) Use Bertke (11 195) 1 spray in one nostril as [...] 06-21-2020 - Maria Luisa Trejo [facility] (ROXICODONE) 5 mg 06-26-2020 (52748) immediate release tablet Indications: Benign liver cyst Take 1 tablet by mouth every 8 hours as needed for up to 5 days. 15 tablet 0 06/21/2020 06/26/2020 Active oxyCODONE IR 05-29-2020 - Sorin (Res) [facility] (ROXICODONE) 5 mg 06-03-2020 Alhalalmeh (46115) immediate release tablet Indications: Intractable nausea and [...] Cl inic (PROTONIX) 40 mg 04-30-2020 [facility] (12967) tablet Take 1 tablet by mouth daily before breakfast. Take on empty stomach, 1/2 hr before meal. 30 tablet 3 04/30/2020 Active Comment: Take 1 tablet by mouth daily before breakfast. Take on empty stomach, 1/2 hr before meal. POLYETHYLENE GLYCOL polyethylene glycol 06-21-2020 - Jonh ([facility] 3350 3350 (MIRALAX) 17 07-22-2020 [facility] (44 195) gram/dose powder Dissolve 1 packet in 4-8 ounces of liquid and drink by mouth once daily as directed. 476 g 0 06/21/2020 07/22/2020 Active Comment: Dissolve 1 packet in 4-8 oun simi of liquid and drink by mouth once daily as directed. POLYETHYLENE GLYCOL peg 3350-Electrolytes 04-26-2020 - Johnny Mccall [place] 3350 / Potassium (GOLYTELY) 04-26-2020 [facility] (441 95) Chloride / Sodium 236-22.74-6.74 -5.86 Johnny Mccall Bicarbonate / gram suspension [facility] Sodium Chloride / Indications: sodium sulfate [...] cap Take 1 [facility] Provider [facility] (80305) mg by mouth daily at bedtime. 0 Active Comment: Take 1 mg by mouth daily at bedtime. pregabalin pregabalin (LYRICA) 300 06-25-2020 - Mala Almendarez [facility] mg capsule Indications: 07-09-2020 (441 95) Post-op pain Take 1 capsule by mouth twice daily for 14 days. 28 capsule 0 06/25/2020 07/09/2020 Active Comment: Take 1 capsule by mouth twic e daily for 14 days. Promethazine promethazine (PHENERGAN) 05-24-2020 [facility] 25 mg tablet Take 1 [facility] (64450) tablet by mouth every 8 hours as needed (for nausea). 10 tablet 0 05/24/2020 Active Comment: Take 1 tablet by mouth every 8 hours as needed (for nausea). QUEtiapine QUEtiapine (SEROQUEL) 02-23-2020 [facility] mg tablet Take 1 (32252) tablet by mouth once daily. 0 02/23/2020 Active Comment: Take 1 tablet by mouth once daily. Sertraline sertraline (ZOLOFT) 100 02-23-2020 Marcelino Ferreira [facility] mg tablet Take 1 tablet (441 95) by mouth once daily. 0 02/23/2020 Active Comment: Take 1 tablet by mouth once daily. Sucralfate sucralfate (CARAFATE) 1 05-24-2020 [facility] hu [facility] gram tablet Take 1 (32717) tablet by mouth four times daily. 30 tablet 0 05/24/2020 Active Comment: Take 1 tablet by mouth four times daily. Problems Active Problems Category Problem Name Status Date Location Abdominal pain Lower abdominal pain, Active 10-31-2019 - Mello Johnston unspecified [facility] (95253) Anxiety disorders Generalized anxiety Active 03-31-2016 - [facility] disorder (75633) Esophageal disorders Gastroesophageal reflux Active [facility] disease (40679) Headache; including Migraine without aura Active 05-17-2008 - [facility] (65881) Mood disorders Reactive depression Active 03-31-2016 - [facility] (situational) (55535) Nausea and vomiting Nausea and vomiting Active 05-25-2020 - [facility] (25319) Other disorders of Indigestion Active [facility] stomach and duodenum (64564) Other gastrointestinal Abdominal bloating Active [facility] disorders (83479) Other gastrointestinal Dysphagia Active [facility] disorders (40362) Other gastrointestinal Loose stool Active [facility] disorders (37240) Other gastrointestinal Personal history of Active [facility] disorders other diseases of the (44962 ) digestive system Other gastrointestinal Diarrhea Active [facility] disorders (59580) Other infections; Local infection of wound Active [facility] including parasitic (05630) Other liver diseases Liver cyst Active 05-24-2010 - [facility] (08357) Other nervous system Postoperative pain Active 06-19-2020 - [facility] disorders (26633) Other nervous system Chronic pain syndrome Active 06-06-2020 - [facility] disorders (55472) Other non-traumatic joint Shoulder pain Active [facility] disorders (67380) Other upper respiratory Allergic rhinitis Active 05-17-2008 - [facility] disease (09496) Pancreatic disorders (not Idiopathic acute Active [facility] diabetes) pancreatitis (74652) Paralysis Weakness of right leg Active 02-23-2017 - [facility] (83259) Substance-related Smoker Active 05-17-2008 - Melloreina Baumaner willem disorders [facility] (16073) Unclassified Patient encounter status Active 05-17-2008 - [facility] (47100) Past or Other Problems Category Problem Name Status Date Location Allergic reactions Allergy status to Completed 10-31-2019 - Mello Pomeremirtha narcotic agent status [facility] (39997) Blindness and vision Blurring of visual Completed 02-23-2017 - [facility] defects image (89070) Calculus of urinary Kidney stone Completed 05-17-2008 - [facility] tract (27490) Diabetes mellitus Impaired fasting Completed 05-17-2008 - [facility] without complication glycaemia (93846) Miscellaneous mental Adjustment insomnia Completed 03-31-2016 - [facility] health disorders (95648) Other connective tissue Muscle weakness of Completed 02-23-2017 - [facility] disease upper limb (69520) Other connective tissue Trochanteric bursitis Completed 06-18-20 16 - [facility] disease (25695) Other diseases of Hydroureter Completed 02-05-2017 - [facility] kidney and ureters (71108) Other diseases of Hydronephrosis Completed 02-05-2017 - [facility] kidney and ureters (08587) Other lower respiratory Multiple nodules of Completed 01-22-2020 - [facility] disease lung (37616) Other nervous system Numbness of face Completed 02-23-2017 - [facility] disorders (16124) Other nervous system Numbness of lower limb Completed 02-23-2017 - [facility] disorders (11796) Other nervous system Numbness of upper limb Completed 02-23-2017 - [facility] disorders (40617) Other non-traumatic Hip pain Completed 06-18-2016 - [facility] joint disorders (80709) Other screening for MRI of lumbar spine Completed 02-23-2017 - C [facility] suspected conditions abnormal (78807) (not mental disorders or infectious disease) Ovarian cyst Cyst of ovary Completed 07-15-2012 - [facility] ic (92737) Residual codes; Acquired absence of Completed 10-31-2019 - [facility] unclassified both cervix and uterus [facility] (95370) Residual codes; Acquired absence of Completed 10-31-2019 - [facility] unclassified other specified parts [facility] of digestive tract (84746) Residual codes; FH: Diabetes mellitus Completed 05-17-2008 - [facility] unclassified (64083) Spondylosis; Pain in cervical spine Completed 06-18-2016 - [facility] intervertebral disc (35537) disorders; other back problems Results Result Name Value Range Unit Interpretation Flag Date Location obsolete on 2020-06 OBSOLETE Refill (AKPRAD) Normal 06-28-2020 Akr on SALLY Dawson ([id number]) 1980 F Medical Date Time Provider Department Center 06/28/20 MALA ALMENDAREZ (45705) During your visit today, we recorded the [...] OBSOLETE Refill (GSTNOR) Normal 06-26-2020 Isaías veland [facility] SALLY VARGAS ([id number]) 1980 [facility] Time Provider Department (61560) 06/26/20 JOHNNY WINN GSTNOR During your visit [...] Normal 06-25-2020 Akr on General SALLY VARGAS ([id number]) 1980 F Medical Date Time Provider Department Center 06/25/20 MALA ALMENDAREZ (42664) During your visit today, we recorded the [...] 06/25/20 progress on 2020-06 PROGRESS HNO ID: [id number] Normal 06-21-2020 Milka Dumont Author: Maria Luisa Joyner [facility] Service: Pain Management (67283) Author Type: Physician Type: Progress Notes Filed: [...] tab(s) (ZOLOFT) 100 mg ORAL DAILY Robel Abeeb 100 mg at 06/21/20810 - pantoprazole DR [...] Approx. 3 cigarettes daily-1 pack every w [place] Substance Use Topics - Alcohol use: Yes [...] and migraine headache. She was referred to [facility] but was unable to go [...] care on PLAN OF CARE HNO ID: [id number] Normal 06-21-20 [facility] Author: Bekah Holman (Pharmacist) [place] (52005) Service: Pharmacy Author Type: Pharmacist Type: Plan [...] PHARMACIST June 21, 2020 11:55 AM Pager: [phone] 06/21/2020 11:55 AM Medication List START taking [...] Your Medications These medications were sent to [facility] [address] [place] [address] Hours: Thursday-Thursday, 8am-6:30pm ? clindamycin 300 mg capsule ? docusate sodium 100 mg capsule ? naloxone 4 mg/actuation nasal spray ? oxyCODONE IR 5 mg immediate release tablet ? polyethylene glycol 3350 17 gram/dose powder nursing prog on NURSING HNO ID: [id number] Normal 06-21-2020 [place] [facility] Author: Silvia (Lucius) LUCIUS Gomez General Service: ? Medical Author Type: Registered Nurse Center Type: Nursing Progress Note ([id number]) Filed: 06/20/2020 11:32 PM Note Text: Nursing Progress Note Patient Name: Sally Vargas Patient Location: [id number] Pt has been eating better and was told by the doctor that wh en her intake improved the fluids could be discontinued. Pt does not want fluids to continue so RN stopped fluids on pt's request. Doctor note i ndicated what the pt said. This note was completed by: Silvia Gomez RN progress on 2020-06 PROGRESS HNO ID: [id number] Normal 06-20-2020 Mil[facility] Author: Jonh Urrutia DO General Service: General Surgery Medical Author Type: Resident Center Type: Progress Notes (85900) Filed: 06/20/2020 8:38 AM Note Text: Attestation signed by Mala Almendarez at 06/20/2020 2:18 PM I saw and evaluated the patient. Discussed with the reside nt and agree with resident's findings and plan as documented in the resident's note. [facility] Progress Note SERVICE DATE: 06/20/2020 [facility] Service Pager: For questions or concerns Mon-Fri 6a-5p please page [phone]. After 5pm and on Weekends and Holidays, please page [phone]. SUBJECTIVE: Doing better this morning. Says pain [...] in ICU or 2178 if on RNF. plan of care on PLAN OF CARE HNO ID: [id number] Normal 06-20-20 [facility]: [facility] (27039) Service: General Surgery Author Type: Resident Type: [...] history physical on 2020-06-20 HISTORY HNO ID: [id number] Normal 06-20-2020 [place] PHYSICAL Author: Nancy Abebe General Service: General Surgery Medical Author Type: Resident Center Type: [facility] (13476) Filed: 06/19/2020 11:38 PM Note Text: Attestation signed by Mala Almendarez at 06/20/2020 2:18 PM Attending Note I personally saw and examined the patient. I reviewed the resident's note. I agree with the resident's assessment and plan with the [facility] revisions and/or additions: CT scan reviewed. Will [...] get worse. She was se nt to [facility], where she was given IV Dilauded [...] liver cyst 05/24/[address] [facility] 11/2009 and 04/2010 showe 4 mm increase in size . No pain. No elevated LFTs on 03/11/2010. - Calculus of kidney 05/17/[address] Nicolas: Hospitalized age 20, and again later -- no procedures so far ([facility], most, 1995 [facility]) - Cancer (HCC) - Diverticulosis - [...] removed - TOTAL ABDOM HYSTERECTOMY 08/31/06 Hysterectomy, [facility] FAMILY HISTORY Problem Relation Age of [...] Approx. 3 cigarettes daily-1 pack every w [place] Substance Use Topics - Alcohol use: Yes [...] oz (86.0kg) SpO2 100% LMP 08/10/2006 B [place] 35.84 kg/(m2). O2 Therapy: Room Air DATA: [...] questions or concerns Mon-Fri 6a-5p please page [phone]. After 5pm and on Weekends and Holidays, please page [phone] if in ICU or [phone] abd/pel w ivcon on 2020-06-20 CT ABD/PEL W Final Report Normal 06-20-2020 Akr on General IVCON DATE OF EXAM: Jun 20 2020 11:59AM [facility] 0530 - CT ABD/PEL W IVCON / (42232) PROCEDURE REASON: Abd pain, unspecified Physician Interpretation [...] ed portions of the heart are unremarkable. Plastics Nurse (topogram) images: No additional findings. IMPRESSION: 1. Postsurgical changes in the posterior right hepatic dome with residual 8.3 cm cystic cavity with trace likely postsurgical gas, but no peripheral enhancement to suggest acute inflammation. 2. Other hepatic cyst are unchanged. 3. No acute intra-abdominal or pelvic findings. Pecan Mallow Dipper: PSCB Transcribe Date/Time: Jun 20 2020 12:16P Dictated by : NILAM OVIEDO MD This examination was interpreted and the report reviewed and electronically signed by: NILAM OVIEDO MD on Jun 20 2020 12:28PM EST consult on CONSULT HNO ID: [id number] Normal 06-20-2020 [place] [facility] Author: Maria Luisa Joyner [facility] Service: Pain Management (35122) Author Type: Physician Type: Consults Filed: 06/20/2020 [...] 300 mg capsule, Take 1 capsule by [facility] four times daily for 5 days., [...] Approx. 3 cigarettes daily-1 pack every w [place] Substance Use Topics - Alcohol use: Yes [...] and migraine headache. She was referred to [facility] but was unable to go [...] health on 03-07-07 [facility] HNO ID: [id number] Normal 020 [facility] Author: Holly (Rt) [facility] Service: Radiology ( 56639) Author Type: [employer] Scout Type: Allied Health Filed: 06/20/2020 12:04 PM [...] unstable renal function, e.g. those with ac eagle kidney injury, the eGFR may not accurately [...] Albumin [Mass/Vol] 4.3 3.9-4.9 g/dL Normal 06-19-2020 [facility] (16259) Comment: Order Comment: Specimen Type : BLOOD SPECIMEN Performed By: #### 39314-3 # ###[facility]ORY[facility]IA [id number] [facility] [address] ALP [Catalytic activity/Vol] 110 34-123 U/L Normal 1 [facility] (00 000) Comment: Order Comment: Specimen Type : BLOOD SPECIMEN Performed By: #### 33402-3 # ###[facility]ORYCLIA [id number] [place] [address] ALT With P-5'-P [Catalytic 16 7-38 U/L Normal [facility] activity/Vol] [place] (98326) Comment: Order Comment: Specimen Type : BLOOD SPECIMEN Performed By: #### 73880-8 # ###[facility]IA [id number] [place] [address] Anion gap [Moles/Vol] 13 9-18 mmol/L Normal 06-19-20 20 [facility] (02761) Comment: Order Comment: Specimen Type : BLOOD SPECIMEN Performed By: #### 43561-0 # ###[facility]ORYCLIA [id number] [place] [address] AST With P-5'-P [Catalytic 19 13-35 U/L Normal [facility] Medical activity/Vol] [place] (14438) Comment: Order Comment: Specimen Type : BLOOD SPECIMEN Performed By: #### 11529-4 # ###[facility]ORYCLIA [id number] [facility] [address] Bilirubin [Mass/Vol] 0.2 0.2-1.3 mg/dL Normal 0 [facility] (19602) Comment: Order Comment: Specimen Type : BLOOD SPECIMEN Performed By: #### 97510-5 # ###[facility]ATORYCLIA [id number] [place] [address] Calcium [Mass/Vol] 9.1 8.5-10.2 mg/dL Normal 06-19-2020 [facility] (79432) Comment: Order Comment: Specimen Type : BLOOD SPECIMEN Performed By: #### 55279-2 # ###[facility]ATORYCLIA [id number] [place] [address] Chloride [Moles/Vol] 102 97-105 mmol/L Normal 0 [facility] (82464) Comment: Order Comment: Specimen Type : BLOOD SPECIMEN Performed By: #### 04978-9 # ###[facility]ATORYCLIA [id number] [place] [address] CO2 [Moles/Vol] 22 22-30 mmol/L Normal 06-19-2020 [facility] (03103) Comment: Order Comment: Specimen Type : BLOOD SPECIMEN Performed By: #### 37581-0 # ###[facility]ATORYCLIA [id number] [place] [address] Creatinine [Mass/Vol] 0.88 0.58-0.96 mg/dL Normal 06-19-20 20 [facility] (00 000) Comment: Order Comment: Specimen Type : BLOOD SPECIMEN Performed By: #### 75285-8 # ###[facility]ATORYCLIA [id number] [place] [address] GFR/1.73 sq M.predicted >60 mL/min/{1.73_m2} Normal 06-19-2020 [facility] MDRD (S/P/Bld) [[facility] rate/Area] (43074) Comment: Order Comment: Specimen Type : BLOOD [...] accurately reflect actual GFR. Performed By: #### 13024-6 # ###[facility]ORATORYCLIA [id number] [facility] [place] [address] Glucose [Mass/Vol] 100 74-99 mg/dL High 06-19-2020 [facility] (78742) Comment: Order Comment: Specimen Type : BLOOD SPECIMEN Result Comment: The [place] Diabetes Association (ADA) provides guidance for cutoff [...] for diagnosis of diabetes. Reference: Standards of [facility] Care in Diabetes 2016, [place] [employer]. Diabetes Care. 2016.39(Suppl 1). Performed By: #### 34821-5 # ###[facility]ORATORYCLIA [id number] [facility] [place] [place] [address] Potassium [Moles/Vol] 3.8 3.7-5.1 mmol/L Normal 06-19-20 [facility] (00 000) Comment: Order Comment: Specimen Type : BLOOD SPECIMEN Performed By: #### 79616-4 # ###[facility]ORATORYCLIA [id number] [place] [address] Protein [Mass/Vol] 7.7 6.3-8.0 g/dL Normal 06-19-2020 [facility] (12465) Comment: Order Comment: Specimen Type : BLOOD SPECIMEN Performed By: #### 43298-3 # ###[facility]ORATORYCLIA [id number] [facility] [place] [address] Sodium [Moles/Vol] 137 136-144 mmol/L Normal 06-19-2020 [facility] (97666) Comment: Order Comment: Specimen Type : BLOOD SPECIMEN Performed By: #### 17185-4 # ###[facility]ORATORYCLIA [id number] [place] [address] Urea nitrogen [Mass/Vol] 14 7-21 mg/dL Normal 06-19 [facility] (77703) Comment: Order Comment: Specimen Type : BLOOD SPECIMEN Performed By: #### 00247-6 # ###[facility]ORATORYCLIA [id number] [place] [address] cbc w auto diff bld on 2020-06-19 Basophils (Bld) [#/Vol] 0.08 <0.11 k/uL Normal 2019 [facility] (00 000) Comment: Order Comment: Specimen Type : BLOOD SPECIMEN Performed By: #### 46974-5 # ###[facility]ORATORYCLIA [id number] [place] [address] Basophils/100 WBC (Bld) 0.7 % Normal 2019 [facility] (50133) Comment: Order Comment: Specimen Type : BLOOD SPECIMEN Performed By: #### 32398-4 # ###[facility]ORATORYCLIA [id number] [facility] [place] [address] Differential cell count method Auto Normal 06-19-2020 [facility] (00 000) Comment: Order Comment: Specimen Type : BLOOD SPECIMEN Performed By: #### 62116-3 # ###[facility]ORATORYCLIA [id number] [place] [address] Eosinophils (Bld) [#/Vol] 0.71 <0.46 k/uL High 10 [facility] (00 000) Comment: Order Comment: Specimen Type : BLOOD SPECIMEN Performed By: #### 09984-6 # ###[facility]ORATORYCLIA [id number] [facility] [place] [address] Eosinophils/100 WBC (Bld) 6.0 % Normal [facility] (10388) Comment: Order Comment: Specimen Type : BLOOD SPECIMEN Performed By: #### 63024-7 # ###[facility]ORATORYCLIA [id number] [place] [address] Erythrocyte distribution 13.3 11.5-15.0 % Normal 06-19 [facility] width (RBC) [Ratio] Center (00711) Comment: Order Comment: Specimen Type : BLOOD SPECIMEN Performed By: #### 14969-6 # ###[facility] LABORATORYCLIA [id number] [place] [address] Hematocrit (Bld) [Volume 37.8 36.0-46.0 % Normal 06-19 [facility] fraction] Center (00 000) Comment: Order Comment: Specimen Type : BLOOD SPECIMEN Performed By: #### 17264-4 # ###[facility] LABORATORYCLIA [id number] [place] [address] Hemoglobin (Bld) 12.1 11.5-15.5 g/dL Normal 06-19-2020 [facility] [Mass/Vol] [place] (0 0000) Comment: Order Comment: Specimen Type : BLOOD SPECIMEN Performed By: #### 15858-9 # ###[facility] LABORATORYCLIA [id number] [place] [address] IMMATURE GRAN % 1.5 % Normal 06-19-2020 [facility] (58774) Comment: Order Comment: Specimen Type : BLOOD SPECIMEN Performed By: #### 59853-4 # ###[facility]ORATORYCLIA [id number] [place] [address] IMMATURE GRAN ABS 0.18 <0.10 k/uL High 06-19-2020 [facility] (45198) Comment: Order Comment: Specimen Type : BLOOD SPECIMEN Result Comment: Differential confirmed by visual scan of peripheral blood smear slide Performed By: #### 24800-8 # ###[facility]ORATORYCLIA [id number] [facility] [address] Lymphocytes (Bld) [#/Vol] 4.79 1.00-4.00 k/uL High [facility] () Comment: Order Comment: Specimen Type : BLOOD SPECIMEN Performed By: #### 67914-7 # ###[facility] LABORATORYCLIA [id number] [facility] [address] Lymphocytes/100 WBC (Bld) 40.6 % Normal [facility] (13638) Comment: Order Comment: Specimen Type : BLOOD SPECIMEN Performed By: #### 28203-6 # ###[facility] LABORATORYCLIA [id number] [facility] [address] MCH (RBC) [Entitic mass] 28.6 26.0-34.0 pg Normal 06-19 [facility] () Comment: Order Comment: Specimen Type : BLOOD SPECIMEN Performed By: #### 88357-2 # ###[facility] LABORATORYCLIA [id number] [facility] [address] MCHC (RBC) [Mass/Vol] 32.0 30.5-36.0 g/dL Normal 06-19-20 [facility] () Comment: Order Comment: Specimen Type : BLOOD SPECIMEN Performed By: #### 86094-0 # ###[facility] LABORATORYCLIA [id number] [facility] [address] MCV (RBC) [Entitic vol] 89.4 80.0-100.0 fL Normal 06-19 [facility] ( 000) Comment: Order Comment: Specimen Type : BLOOD SPECIMEN Performed By: #### 34902-0 # ###[facility] LABORATORYCLIA [id number] [facility] [address] Monocytes (Bld) [#/Vol] 0.53 <0.87 k/uL Normal 2019 [facility] ( 000) Comment: Order Comment: Specimen Type : BLOOD SPECIMEN Performed By: #### 30959-8 # ###[facility] LABORATORYCLIA [id number] [facility] [place] [address] Monocytes/100 WBC (Bld) 4.5 % Normal 2019 [facility] (03783) Comment: Order Comment: Specimen Type : BLOOD SPECIMEN Performed By: #### 75385-5 # ###[facility]ORYCLIA [id number] [facility] [place] [address] Neutrophils (Bld) [#/Vol] 5.51 1.45-7.50 k/uL Normal [facility] (00 000) Comment: Order Comment: Specimen Type : BLOOD SPECIMEN Performed By: #### 32362-2 # ###[facility]ORATORYCLIA [id number] [place] [address] Neutrophils/100 WBC (Bld) 46.7 % Normal [facility] (60549) Comment: Order Comment: Specimen Type : BLOOD SPECIMEN Performed By: #### 22535-2 # ###[facility]ORATORYCLIA [id number] [facility] [address] Nucleated RBC (Bld) <0.01 <0.01 10*3/uL Normal 06-19-2020 [facility] [#/Vol] [place] (00 000) Comment: Order Comment: Specimen Type : BLOOD SPECIMEN Performed By: #### 20122-5 # ###[facility]ORATORYCLIA [id number] [facility] [place] [address] Nucleated RBC/100 WBC 0.0 0.0 /100 WBC Normal 06-19-20 20 [facility] (Bld) [Ratio] Center (30952) Comment: Order Comment: Specimen Type : BLOOD SPECIMEN Performed By: #### 76588-1 # ###[facility]ORATORYCLIA [id number] [facility] [place] [address] Platelet mean volume (Bld) 10.4 9.0-12.7 fL Normal [facility] [Entitic vol] Center (75752) Comment: Order Comment: Specimen Type : BLOOD SPECIMEN Performed By: #### 36416-4 # ###[facility]ORATORYCLIA [id number] [place] [address] Platelets (Bld) [#/Vol] 324 150-400 k/uL Normal 2019 [facility] (00 000) Comment: Order Comment: Specimen Type : BLOOD SPECIMEN Performed By: #### 80399-3 # ###[facility] LABORATORYCLIA [id number] [place] [address] RBC (Bld) [#/Vol] 4.23 3.90-5.20 m/uL Normal 06-19-2020 [facility] (40806) Comment: Order Comment: Specimen Type : BLOOD SPECIMEN Performed By: #### 11949-4 # ###[facility] LABORATORYCLIA [id number] [facility] [address] RED CELL MORPH Normal Normal 06-19-2020 [facility] (21901) Comment: Order Comment: Specimen Type : BLOOD SPECIMEN Performed By: #### 12920-5 # ###[facility] LABORATORYCLIA [id number] [facility] [address] WBC (Bld) [#/Vol] 11.80 3.70-11.00 k/uL High 06-19-2020 [facility] (55637) Comment: Order Comment: Specimen Type : BLOOD SPECIMEN Performed By: #### 37800-3 # ###[facility] LABORATORYCLIA [id number] [place] [address] cnpn on 2020-06-15 CNPN Telephone (AGGENS6) Normal 06-15-2020 [place] SALLY Dawson ([id number]) 1980 F Medical Date Time Provider Department Center 06/15/20 TATY PEREA (VISCOSE CELLAR WORKER, OPENSTACK CLOUD CONSULTING ARCHITECT) AGGENS6 (14970) During your visit today, we recorded the following informati on about you: Taty Perea APRN.OPENSTACK CLOUD CONSULTING ARCHITECT 06/15/2020 11:28 AM Signed Patient called the [...] have transportation. She refuses to go to [facility] to be seen because they treat her poorly. I will send an RX to her pharmacy for an antibiotic. She is to notify the office if her symptoms worsen or do not improve. Taty Perea APRN, OPENSTACK CLOUD CONSULTING ARCHITECT Allergies As of Date: 06/15/2020 Noted Allergy [...] 06/15/20 progress on 2020-05 PROGRESS HNO ID: [id number] Normal 06-13-2020 [facility] Author: Kimmie Jennings General Service: General Surgery Medical Author Type: Resident Center Type: Progress Notes ([id number]) Filed: 06/13/2020 6:55 AM Note Text: Attestation signed by Mala Almendarez at 06/18/2020 1:28 PM I saw and evaluated the patient. Discussed with the reside nt and agree with resident's findings and plan as documented in the resident's note. [facility] Progress Note SERVICE DATE: 06/13/2020 [facility] Service Pager: For questions or concerns Mon-Fri 6a-5p please page [phone]. After 5pm and on Weekends and Holidays, [...] 0659 06/13/20 0700 - 06/14/20 0659 Shift [phone] 1714-9189 1538-0520 24 Hour Total 2523-5225 1064-4281 1326-0463 24 Hour Total INTAKE PO 240 200 [...] questions or concerns Mon-Thu 6a-5p please page [phone]. After 5pm and on Weekends and Holidays, please page [phone] if in ICU or [phone] if on RNF. PROGRESS HNO ID: [id number] Normal 06-13-2020 [facility] Author: Mer (Rn) LUCIUS Bejarano General Service: Nursing Med ical Author Type: Registered Nurse Center Type: Progress Notes ([id number]) Filed: 06/13/2020 12:39 AM Note Text: Patient IV got infiltrated. Patient requested IV only on her rt AC with one try. Refused other spots with better veins. Failed first attempt and patient does not want to have another IV. Surgery resident notified. plan of care on PLAN HNO ID: [id number] Normal 06-13-2020 [facility] Author: Aureliano Dietz DO General CARE Service: General Surgery Medical Author Type: Resident Center Type: Plan of Care ( 20041) Filed: 06/13/2020 4:57 PM Note Text: Attestation [...] Phosphate [Mass/Vol] 3.9 2.7-4.8 mg/dL Normal 0 [facility] (66112) Comment: Performed By: #### URIN2 ### # [address] [address] mdrd gfr on 2020-05 GFR/1.73 sq M >60 >60mL/min/1.73m2 mL/min/{1.73_m2} Normal [facility] predicted among [facility] non-blacks MDRD (000 00) (S/P/Bld) [Vol rate/Area] Comment: Result Comment: If the patie nt is , multiply the result by 1.210. Performed By: #### GFR #### [facility] [address] [place], [place] [address] magnesium blood on 2020-06-13 Magnesium [Mass/Vol] 2.1 1.7-2.3 mg/dL Normal 0 [facility] (67351) Comment: Performed By: #### URIN2 ### # [facility] [address] [place], [place] [address] hemogram on 2020-05 Erythrocyte distribution 13.4 11.7-14.4 % Normal 06-13 [facility] width (RBC) [Ratio] System (79971) Comment: Performed By: #### URIN2 ### # [facility] [address] [place] [address] Hematocrit (Bld) [Volume 37.9 34.1-44.9 % Normal 06-13 [facility] fraction] System (00 000) Comment: Performed By: #### URIN2 ### # [facility] [address] [place] [address] Hemoglobin (Bld) 12.1 11.2-15.7 g/dL Normal 06-13-2020 [facility] [place] [facility] [Mass/Vol] System (0 0000) Comment: Performed By: #### URIN2 ### # [facility] [address] [place] [address] MCH (RBC) [Entitic mass] 28.9 25.6-32.2 pg Normal 06-13 [facility] (00 000) Comment: Performed By: #### URIN2 ### # [facility] [address] [place] [address] MCHC (RBC) [Mass/Vol] 31.9 31.6-34.8 % Normal 06-13-20 20 [facility] (96074) Comment: Performed By: #### URIN2 ### # [facility] [address] [place] [address] MCV (RBC) [Entitic vol] 90.7 79.4-94.[address] [facility] (00 000) Comment: Performed By: #### URIN2 ### # [facility] [address] [place] [address] Platelet mean volume (Bld) 10.9 9.4-12.3 fl Normal [place] [facility] [place] [facility] [Entitic vol] System (91643) Comment: Performed By: #### URIN2 ### # [facility] [address] [place], [place] [address] Platelets (Bld) [#/Vol] 236 182-369 thou/cmm Normal 2019 [facility] (00 000) Comment: Performed By: #### URIN2 ### # [facility] [address] [place], [place] [address] RBC (Bld) [#/Vol] 4.18 3.93-5.22 mil/cmm Normal 06-13-2020 [facility] (00 000) Comment: Performed By: #### URIN2 ### # [facility] [address] [place] [address] RDW SD 44.2 36.4-46.3 fl Normal 06-13-2020 [facility] (88841) Comment: Performed By: #### URIN2 ### # [facility] [address] [place] [address] WBC (Bld) [#/Vol] 7.45 3.98-10.04 thou/cmm Normal 06-13-2020 [facility] (00 000) Comment: Performed By: #### URIN2 ### # [facility] [address] [place] [address] comprehensive metabolic panel on 2020-06-13 Albumin [Mass/Vol] 4.1 3.9-4.9 g/dL Normal 06-13-2020 [facility] (99381) Comment: Performed By: #### URIN2 ### # [facility] [address] [place] [address] ALP [Catalytic activity/Vol] 98 34-123 U/L Normal 0 06-13-2020 [facility] (00 000) Comment: Performed By: #### URIN2 ### # [facility] [address] [place] [address] ALT [Catalytic activity/Vol] 73 7-38 U/L High 0 06-13-2020 [facility] (83675) Comment: Performed By: #### URIN2 ### # [facility] [address] [place] [address] Anion gap [Moles/Vol] 10 9-18 mmol/L Normal 06-13-[address] [facility] (55779) Comment: Performed By: #### URIN2 ### # [facility] [address] [place], [place] [address] AST [Catalytic activity/Vol] 69 13-35 U/L High 0 06-13-2020 [facility] (45851) Comment: Performed By: #### URIN2 ### # [facility] [address] [place], [place] [address] Bilirubin [Mass/Vol] 0.6 0.2-1.3 mg/dL Normal 0 [facility] (69646) Comment: Performed By: #### URIN2 ### # [facility] [address] [place], [place] [address] Calcium [Mass/Vol] 9.1 8.5-10.2 mg/dL Normal 06-13-2020 [facility] (47251) Comment: Performed By: #### URIN2 ### # [facility] [address] [place], [place] [address] Chloride [Moles/Vol] 101 97-105 mmol/L Normal 0 [facility] (59880) Comment: Performed By: #### URIN2 ### # [facility] [address] [place], [place] [address] CO2 Blood 27 22-30 mmol/L Normal 06-13-2020 [facility] (52671) Comment: Performed By: #### URIN2 ### # [facility] [address] [place], [place] [address] Creatinine [Mass/Vol] 0.87 0.58-0.96 mg/dL Normal 06-13-[address] [facility] (00 000) Comment: Performed By: #### URIN2 ### # [facility] [address] [place], [place] [address] Glucose [Mass/Vol] 94 74-99 mg/dL Normal 06-13-2020 [facility] (18126) Comment: Result Comment: The [place] Diabetes Association (ADA) provides guidance for cutoff [...] Standards of Medical Care in Diabetes 2016; [place] [employer] Association. Diabetes Care. 2016;39(Suppl 1). Performed By: #### URIN2 ### # [facility] [address] [place], [place] [address] Potassium [Moles/Vol] 3.8 3.7-5.1 mmol/L Normal 06-13-[address] [facility] (00 000) Comment: Performed By: #### URIN2 ### # [address] [address] Protein [Mass/Vol] 7.3 6.3-8.0 g/dL Normal 06-13-2020 [facility] (48138) Comment: Performed By: #### URIN2 ### # [facility] [address] [place], [place] [address] Sodium [Moles/Vol] 138 136-144 mmol/L Normal 06-13-2020 [facility] (72088) Comment: Performed By: #### URIN2 ### # [address] [address] Urea nitrogen [Mass/Vol] 7 7-21 mg/dL Normal 06-13 [facility] (26711) Comment: Performed By: #### URIN2 ### # [address] [address] case managem on CASE MANAGEM HNO ID: [id number] Normal 06-13-20 [facility] Author: Britni (Rn) [facility]CIUS [facility] Service: Care Management ([id number]) Author Type: Registered Nurse Type: Care Mgt [...] Name/Phone: Floor RN TRANSPORTATION ARRANGEMENTS: Transportation Arrangements: [employer] (through [employer]: [phone] Trip #: [id number] Needs Prior to Discharge: Ready for Discharge Chart reviewed. Discharge held yesterday due to uncontrolled pain. Spoke with patient. Plan is for discharge today. Awaiting juve hussein orders. Discharge disposition= Home with follow up care. SIGNATURE: Britni Grimaldo RN PATIENT NAME: Sally james DATE: June 13, 2020 TIME: 11:00 AM PAGER/CONTACT #: [phone] progress on 2020-05 PROGRESS HNO ID: [id number] Holder 06-12-2020 [facility] Author: Nancy Abebe General Service: General Surgery Medical Author Type: Resident Center Type: Progress Notes (68067) Filed: 06/12/2020 7:57 AM Note Text: Attestation [...] questions or concerns Mon-Fri 6a-5p please page [phone]. After 5pm and on Weekends and Holidays, please page [phone]. SUBJECTIVE: C/o significant pain that prevents her [...] 0659 06/12/20 0700 - 06/13/20 0659 Shift 1503-8406 7495-1843 4210-5328 24 Hour Total 2034-5320 9829-7035 9699-2865 24 Hour Total INTAKE PO 100 100 PO 100 100 IV 1900 1900 OR Crystalloid intake (mL) 1000 1000 Volume (mL) (lactated ringers infusion) 900 900 Shift Total 4573 610 1759 OUTPUT Urine 647 054 9729 Void (ml) 600 600 OR Urine Output 500 500 Urine Not Saved. 1 x 3 x 4 x Blood 50 50 Estimated Blood loss 50 50 Shift Total 746 441 8752 Weight (kg) 89.6 89.6 89.6 89.6 89.6 [...] care on PLAN OF CARE HNO ID: [id number] Normal 06-12-20 [facility] Author: Page Burgess ([employer] Cand[employer] Wicker) [place] ([address]) Service: Pharmacy Author Type: Pharmacist Type: Plan [...] from Discharge Medication Li st. Page Burgess, [employer]icker June 12, 2020 10:36 AM Medication List [...] Your Medications These medications were sent to [facility] [address] [place] [address] Hours: Thursday-Thursday, 8am-6:30pm ? oxyCODONE IR 5 mg immediate release tablet phosphorous blood o n 2020-06-12 Phosphate [Mass/Vol] 3.4 2.7-4.8 mg/dL Normal 0 [facility] (21129) Comment: Performed By: #### CBCD1 ### # [place] [id number] magnesium blood on 2020-06-12 Magnesium [Mass/Vol] 1.5 1.7-2.3 mg/dL Low 0 [facility] (19280) Comment: Performed By: #### CBCD1 ### # [place] [id number] hemogram on 2020-05 Erythrocyte distribution 13.2 11.7-14.4 % Normal 06-12 [facility] width (RBC) [Ratio] System (45866) Comment: Performed By: #### CBCD1 ### # [place] [id number] Hematocrit (Bld) [Volume 32.9 34.1-44.9 % Low 06-12 [facility]] System (00 000) Comment: Performed By: #### CBCD1 ### # [facility] [address] [place], [place] [address] Hemoglobin (Bld) [Mass/Vol] 10.5 11.2-15.7 g/dL Low [facility] () Comment: Performed By: #### CBCD1 ### # [facility] [address] [place], [place] [address] MCH (RBC) [Entitic mass] 29.2 25.6-32.2 pg Normal 06-12 [facility] () Comment: Performed By: #### CBCD1 ### # [facility] [address] [place], [place] [address] MCHC (RBC) [Mass/Vol] 31.9 31.6-34.8 % Normal 06-12-[address] [facility] (52954) Comment: Performed By: #### CBCD1 ### # [facility] [address] [place], [place] [address] MCV (RBC) [Entitic vol] 91.4 79.4-94.[address] [facility] (00 000) Comment: Performed By: #### CBCD1 ### # [facility] [address] [place], [place] [address] Platelet mean volume (Bld) 11.5 9.4-12.[address] [facility] [Entitic vol] System (80780) Comment: Performed By: #### CBCD1 ### # [facility] [address] [place], [place] [address] Platelets (Bld) [#/Vol] 182 182-369 thou/cmm Normal 2019 [facility] (00 000) Comment: Performed By: #### CBCD1 ### # [facility] [address] [place], [place] [address] RBC (Bld) [#/Vol] 3.60 3.93-5.22 mil/cmm Low 06-12-2020 [facility] (28812) Comment: Performed By: #### CBCD1 ### # [facility] [address] [place], [place] [address] RDW SD 44.5 36.4-46.3 fl Normal 06-12-2020 [facility] (16622) Comment: Performed By: #### CBCD1 ### # [facility] [address] [place] [id number] WBC (Bld) [#/Vol] 7.04 3.98-10.04 thou/cmm Normal 06-12-2020 [facility] (00 000) Comment: Performed By: #### CBCD1 ### # [facility] [address] [place] [address] case managem on CASE MANAGEM HNO ID: [id number] Normal 06-12-20 [facility] Author: Britni Naranjo) LUCIUS Grimaldo [facility] Service: Care Management ([id number]) Author Type: Registered Nurse Type: Care Mgt [...] 12, 2020 TIME: 9:18 AM PAGER/CONTACT #: [phone] basic metabolic panel on 2020-06-12 Anion gap [Moles/Vol] 8 9-18 mmol/L Low 06-12-[address] [facility] (68289) Comment: Performed By: #### CBCD1 ### # [facility] [address] [place], [place] [address] Calcium [Mass/Vol] 8.0 8.5-10.2 mg/dL Low 06-12-2020 [facility] ([address]676) Comment: Performed By: #### CBCD1 ### # [facility] [address] [place], [place] [address] Chloride [Moles/Vol] 104 97-105 mmol/L Normal 0 [facility] (39797) Comment: Performed By: #### CBCD1 ### # [facility] [address] [place], [place] [address] CO2 Blood 26 22-30 mmol/L Normal 06-12-2020 [facility] (69480) Comment: Performed By: #### CBCD1 ### # [facility] [address] [place], [place] [address] Creatinine [Mass/Vol] 0.87 0.58-0.96 mg/dL Normal 06-12-20 [facility] (00 000) Comment: Performed By: #### CBCD1 ### # [facility] [address] [place], [place] [address] Glucose [Mass/Vol] 83 74-99 mg/dL Normal 06-12-2020 [facility] (68795) Comment: Result Comment: The [place] Diabetes Association (ADA) provides guidance for cutoff [...] Standards of Medical Care in Diabetes 2016; [place] [employer]. Diabetes Care. 2016;39(Suppl 1). Performed By: #### CBCD1 ### # [facility] [address] [place] [address] Potassium [Moles/Vol] 3.4 3.7-5.1 mmol/L Low 06-12-[address] [facility] ([address]60) Comment: Performed By: #### CBCD1 ### # [facility] [address] [place] [address] Sodium [Moles/Vol] 138 136-144 mmol/L Normal 06-12-2020 [facility] ([address]93) Comment: Performed By: #### CBCD1 ### # [place] [address] Urea nitrogen [Mass/Vol] 6 7-21 mg/dL Low 06-12 [facility] ([address]210) Comment: Performed By: #### CBCD1 ### # [place] [address] type and screen on 2020-06-11 ABO group Nom (Bld) O Normal 06-11-2020 [facility] (30681) Comment: Performed By: #### CBCD1 ### # [place] [address] Comment See Below Normal 06-11-2020 [facility] (48293) Comment: Result Comment: Screen &/or Xmatch expires in 3 days at 12 midnight. Redraw patient at that time. Performed By: #### CBCD1 ### # [place] [address] RH Type Positive Normal 06-11-2020 [facility] ([id number]) Comment: Performed By: #### CBCD1 ### # [place] [address] surgical tissue exam on 2020-06-11 Surgical Tissue Exam Test performed at [facility] Normal 06-11-2020 [facility] [address] [place] [address] ([id number]) NAME: SALLY VARGAS REQUESTING: MALA ALMENDAREZ MD [...] are not see n on the specimen. Protection Consultant sections are submitted in formalin in 4 cassettes. LETICIA/chadd VILLASEÑOR M.D., PATHOLOGIST (Electronic signature on file) Signed out: 06/13/2020 16:48 PRINTED: 06/13/2020 Page 1 of 1 Comment: Performed By: #### URIN2 ### # [place] [address] progress on 2020-05 PROGRESS HNO ID: [id number] Normal 06-11-2020 [place] Author: Kimmie Beck [facility] General Service: General Surgery Medical Author Type: Resident Center Type: Progress Notes ([id number]) Filed: 06/11/2020 7:03 AM Note Text: Attestation [...] questions or concerns Mon-Fri 6a-5p please page [phone]. After 5pm and on Weekends and Holidays, please page [phone]. SUBJECTIVE: NAEON. Afebrile. Patient resting in bed [...] 0659 06/11/20 07 - 06/12/20 0659 Shift 9032-8226 7444-0412 7594-6470 24 Hour Total 0951-8113 8080-7531 4009-2924 24 Hour Total INTAKE PO 600 600 [...] questions or concerns Thu-Thu 6a-5p please page [phone]. After 5pm and on Weekends and Holidays, please page [phone] if in ICU or 2174 if on RNF. operative no on OPERATIVE NO HNO ID: [id number] Normal 06-11-20 [facility] Author: Mala Eddy [facility] Service: General Surgery ([id number]) Author Type: Physician Type: Operative Report Filed: 06/11/2020 1:39 PM Note Text: [facility] - Operative Report SALLY VARGAS : 1980 AGE: 39. SEX: F PATIENT TYPE: I HOSP SV: [facility] LOCATION: [facility] ATTENDING PHYSICIAN: MALA ALMENDAREZ CSN NUMBER: [id number] DATE OF SURGERY/PROCEDURE: 06/11/2020 INCISION/PROCEDURE START TIME: 10:51 AM INCISION CLOSE/PROCEDURE END TIME: 11:47 AM PREOPERATIVE DIAGNOSIS: Symptomatic liver cyst. POSTOPERATIVE DIAGNOSIS: Symptomatic liver cyst. SURGEON: Mala Almendarez MD MINE WEDGE SAWYER: None. SURGERY/PROCEDURE: Laparoscopic partial right hepatic lobect [...] CLASS: 2, clean, contaminated. Mala Almendarez MD NSA:[id number] /[id number] nursing prog on NURSING PROG HNO ID: [id number] Normal 06-11-20 20 [place] [facility] Author: Garo Jackson [facility] Service: ? ([id number]) Author Type: Registered Nurse Type: Nursing Progress Note Filed: 06/11/2020 6:25 PM Note Text: Nursing Progress Note Patient Name: Sally Vargas Patient Location: [place] [id number]- Patient refusing IV fluids, states we can restart them when she goes to bed. Informed surgery team. This note was completed by: Garo Jackson RN hemogram on 2020-05 Erythrocyte distribution 13.0 11.7-14.4 % Normal 06-11 [facility] width (RBC) [Ratio] System (96181) Comment: Performed By: #### CBCD1 ### # [facility] [address] [place], [place] [address] Hematocrit (Bld) [Volume 35.0 34.1-44.9 % Normal 06-11 [facility] fraction] System (00 000) Comment: Performed By: #### CBCD1 ### # [facility] [address] [place], [place] [address] Hemoglobin (Bld) 11.4 11.2-15.7 g/dL Normal 06-11-2020 [facility] [employer] [facility] [Mass/Vol] System (0 0000) Comment: Performed By: #### CBCD1 ### # [facility] [address] [place], [place] [address] MCH (RBC) [Entitic mass] 29.2 25.6-32.2 pg Normal 06-11 [facility] (00 000) Comment: Performed By: #### CBCD1 ### # [facility] [address] [place], [place] [address] MCHC (RBC) [Mass/Vol] 32.6 31.6-34.8 % Normal 06-11-20 20 [facility] (11145) Comment: Performed By: #### CBCD1 ### # [facility] [address] [place], [place] [address] MCV (RBC) [Entitic vol] 89.5 79.4-94.8 fl Normal 2019 [facility] (00 000) Comment: Performed By: #### CBCD1 ### # [facility] [address] [place], [place] [address] Platelet mean volume (Bld) 11.1 9.4-12.[address] [facility] [Entitic vol] System (71782) Comment: Performed By: #### CBCD1 ### # [facility] [address] [place], [place] [address] Platelets (Bld) [#/Vol] 229 182-369 thou/cmm Normal 2019 [facility] (00 000) Comment: Performed By: #### CBCD1 ### # [facility] [address] [place], [place] [address] RBC (Bld) [#/Vol] 3.91 3.93-5.22 mil/cmm Low 06-11-2020 [facility] (67001) Comment: Performed By: #### CBCD1 ### # [facility] [address] [place] [id number] RDW SD 42.5 36.4-46.3 fl Normal 06-11-2020 [facility] (42235) Comment: Performed By: #### CBCD1 ### # [facility] [address] [place], [place] [address] WBC (Bld) [#/Vol] 6.54 3.98-10.04 thou/cmm Normal 06-11-2020 [facility] (00 000) Comment: Performed By: #### CBCD1 ### # [place] [id number] case managem on 202 CASE MANAGEM HNO ID: [id number] Normal 06-11-20 20 [facility] Author: Britni (Rn) LUCIUS [facility] Service: Care Management ([id number]) Author Type: Registered Nurse Type: Care Mgt [...] 11, 2020 TIME: 9:10 AM PAGER/CONTACT #: [phone] anes preop on 06-11 ANES PREOP HNO ID: [id number] Normal 06-11-2020 [place] Dumont Author: [facility] Service: Anesthesiology ([id number]) Author Type: Physician Type: Anesthesia PreOp Filed: [...] liver cyst 05/24/[address] [facility] 11/2009 and 04/2010 showe 4 mm increase in size . No pain. No elevated LFTs on 03/11/2010. - Calculus of kidney 05/17/[address] Nicolas: Hospitalized age 20, and again later -- no procedures so far ([facility], [address] [facility]) - Cancer (HCC) - Diverticulosis - [...] removed - TOTAL ABDOM HYSTERECTOMY 08/31/06 Hysterectomy, [facility] FAMILY HISTORY Problem Relation Age of [...] Approx. 3 cigarettes daily-1 pack every w [place] Substance Use Topics - Alcohol use: Yes [...] INTRAVENOUS q 3 H PRN Nigel (Res) [place] 1 mg at 06/11/20 0536 - [MAR Hold due to Transfer] NaCl 0.9% iv infusion 125 mL/hr INTRAVENOUS CONTINUOUS Nigel (Res) [place] 125 mL/hr at 06/10/202247 1 25 mL/hr [...] June 11, 2020 TIME: 9:49 AM CSN: [id number] anes post on 06-11 ANES POST HNO ID: [id number] Normal 06-11-2020 [facility] Author: [facility] ([id number]) Service: Anesthesiology Author Type: Physician Type: Anesthesia [...] #: progress on 2020-05 PROGRESS HNO ID: [id number] Normal 06-10-2020 [facility] Author: Mer PickardRnJoao Bejarano RN [place] ([id number]) Service: Nursing Author Type: Registered Nurse Type: [...] resident Kimmie was notified. PROGRESS HNO ID: [id number] Normal 06-10-2020 [facility] Author: Kimmie Beck [facility] ([id number]) Service: General Surgery Author Type: Resident Type: [...] questions or concerns Mon-Thu 6a-5p please page [phone]. After 5pm and on Weekends and Holidays, please page [phone]. SUBJECTIVE: NAEON. Afebrile. Patient resting in bed [...] 0659 06/10/20 0700 - 06/11/20 0659 Shift 8797-6144 0649-8312 1193-0014 24 Hour Total 9830-1761 5671-5186 0429-4314 24 Hour Total INTAKE PO 549 653 6818 PO 609 159 4014 Shift Total 427 978 9508 OUTPUT Urine Urine Not Saved. 2 x [...] 2174 if on RNF. PROGRESS HNO ID: [id number] Normal 06-10-2020 [facility] Author: Mer (Rn) LUCIUS Bejarano [place] ([id number]) Service: Nursing Author Type: Registered Nurse Type: [...] Phosphate [Mass/Vol] 4.2 2.7-4.8 mg/dL Normal 0 [facility] (86659) Comment: Performed By: #### CBCD1 ### # [address] [address] magnesium blood on 2020-06-10 Magnesium [Mass/Vol] 1.8 1.7-2.3 mg/dL Normal 0 [facility] (47558) Comment: Performed By: #### CBCD1 ### # [address] [address] coronavirus 2019 on 2020-06-10 COVID 19 Result QUALITY CONTROL CHECKER Negative CORNEG Normal 06-10-2020 [facility] (48022) Comment: Result Comment: Negative for COVID19 (SARS CoV2) by PCR. This test was developed and its performance characteristics determined by [facility]'s Johnnie JAzul [facility] Pathology and Laboratory Medicine [place]. This test has bee n authorized by FDA under an Emergency Use Authorization (EUA). This test has been validated in accordance with the FDA's Guidance Document Policy for Diagnostics Test ing in Laboratories Certified to Perform High Complexity Testing under CLI A prior to Emergency use Authorization for Coronavirus Disease 2019 dur ing the Public [facility] Emergency issued on November 12, 2019. Performing Laboratory: [facility] [address] [place] [address] Performed By: #### CBCD1 ### # [facility] [address] [place], [place] [address] basic metabolic panel on 2020-06-10 Anion gap [Moles/Vol] 10 9-18 mmol/L Normal 06-10-20 [facility] (64355) Comment: Performed By: #### CBCD1 ### # [address] [address] Calcium [Mass/Vol] 9.2 8.5-10.2 mg/dL Normal 06-10-2020 [facility] (24563) Comment: Performed By: #### CBCD1 ### # [facility] [address] [place], [place] [address] Chloride [Moles/Vol] 102 97-105 mmol/L Normal 0 [facility] (46128) Comment: Performed By: #### CBCD1 ### # [facility] [address] [place], [place] [address] CO2 Blood 27 22-30 mmol/L Normal 06-10-2020 [facility] (45048) Comment: Performed By: #### CBCD1 ### # [facility] [address] [place], [place] [address] Creatinine [Mass/Vol] 0.90 0.58-0.96 mg/dL Normal 06-10-20 20 [facility] (00 000) Comment: Performed By: #### CBCD1 ### # [facility] [address] [place], [place] [address] Glucose [Mass/Vol] 105 74-99 mg/dL High 06-10-2020 [facility] (85323) Comment: Result Comment: The [place] Diabetes Association (ADA) provides guidance for cutoff [...] Standards of Medical Care in Diabetes 2016; [place] Diabetes Association. Diabetes Care. 2016;39(Suppl 1). Performed By: #### CBCD1 ### # [place] [address] Potassium [Moles/Vol] 3.7 3.7-5.1 mmol/L Normal 06-10-20 [facility] (00 000) Comment: Performed By: #### CBCD1 ### # [place] [address] Sodium [Moles/Vol] 139 136-144 mmol/L Normal 06-10-2020 [facility] (53899) Comment: Performed By: #### CBCD1 ### # [place] [address] Urea nitrogen [Mass/Vol] 8 7-21 mg/dL Normal 06-10 [facility] (83869) Comment: Performed By: #### CBCD1 ### # [place] [address] allied health on 03-06-27 ALLIED HNO ID: [id number] Normal 06-10-2020 [facility] Author: Chaplain Suarez (Chaplain) General Service: Spiritual Care Medical Author Type: [employer] [facility] Type: Allied Health ([id number]) Filed: 06/10/2020 7:39 PM Note Text: SPIRITUALCARE Spiritual Care Visit- Brief Note Name: Sally Vargas Date: June 10, 2020 Notes: Pre-surgery Patient Nothing needed tonight. [employer] Signature: Chaplain Erick To contact the [facility] Department: Please call [phone] or Page the On-Call at ast er [phone] Thank you for the opportunity to be of service. This is an electronically created document. IF PRINTED, PLEASE DO NOT REMOVE FROM THE CHART OR MODIFY NH INTED COPY. progress on 2020-05 PROGRESS HNO ID: [id number] Normal 06-09-2020 [place] Author: Kimmie Jennings General Service: General Surgery Medical Author Type: Resident Center Type: Progress Notes ([id number]) Filed: 06/09/2020 7:14 AM Note Text: Attestation [...] questions or concerns Thu-Thu 6a-5p please page [phone]. After 5pm and on Weekends and Holidays, please page [phone]. SUBJECTIVE: NAEON. Afebrile. Patient resting in bed [...] 0659 06/09/20 07 - 06/10/20 0659 Shift 6415-8712 9847-7612 6256-4329 24 Hour Total 2708-8738 4467-2200 2971-8127 24 Hour Total INTAKE Shift Total OUTPUT [...] 13.2 11.7-14.4 % Normal 06-09 [facility] width (RBC) [Ratio] System (41290) Comment: Performed By: #### GFR #### [address] [address] Hematocrit (Bld) [Volume 33.7 34.1-44.9 % Low 06-09 [facility]] System (00 000) Comment: Performed By: #### GFR #### [address] [address] Hemoglobin (Bld) [Mass/Vol] 10.6 11.2-15.7 g/dL Low [facility] (00 000) Comment: Performed By: #### GFR #### [address] [address] MCH (RBC) [Entitic mass] 28.8 25.6-32.2 pg Normal 06-09 [facility] (00 000) Comment: Performed By: #### GFR #### [address] [address] MCHC (RBC) [Mass/Vol] 31.5 31.6-34.8 % Low 06-09-[address] [facility] (54078) Comment: Performed By: #### GFR #### [address] [address] MCV (RBC) [Entitic vol] 91.6 79.4-94.[address] [facility] (00 000) Comment: Performed By: #### GFR #### [address] [address] Platelet mean volume (Bld) 11.6 9.4-12.[address] [facility] [Entitic vol] System (83894) Comment: Performed By: #### GFR #### [facility] [address] [place], [place] [address] Platelets (Bld) [#/Vol] 199 182-369 thou/cmm Normal 2019 [facility] (00 000) Comment: Performed By: #### GFR #### [facility] 1 [place] [id number] RBC (Bld) [#/Vol] 3.68 3.93-5.22 mil/cmm Low 06-09-[address] [facility] (30773) Comment: Performed By: #### GFR #### [place] [address] RDW SD 43.9 36.4-46.3 fl Normal 06-09-2020 [facility] (40311) Comment: Performed By: #### GFR #### [place] [id number] WBC (Bld) [#/Vol] 6.47 3.98-10.04 thou/cmm Normal 06-09-2020 [facility] (00 000) Comment: Performed By: #### GFR #### [address] [address] basic metabolic panel on 2020-06-09 Anion gap [Moles/Vol] 11 9-18 mmol/L Normal 06-09-[address] [facility] (81997) Comment: Performed By: #### GFR #### [address] [address] Calcium [Mass/Vol] 8.8 8.5-10.2 mg/dL Normal 06-09-2020 [facility] (37991) Comment: Performed By: #### GFR #### [address] [address] Chloride [Moles/Vol] 106 97-105 mmol/L High 0 [facility] (74144) Comment: Performed By: #### GFR #### [address] [place], [place] [address] CO2 Blood 24 22-30 mmol/L Normal 06-09-2020 [facility] (31382) Comment: Performed By: #### GFR #### [facility] [address] [place], [place] [address] Creatinine [Mass/Vol] 0.82 0.58-0.96 mg/dL Normal 06-09-20 [facility] (00 000) Comment: Performed By: #### GFR #### [facility] [address] [place], [place] [address] Glucose [Mass/Vol] 84 74-99 mg/dL Normal 06-09-2020 [facility] (05419) Comment: Result Comment: The [place] Diabetes Association (ADA) provides guidance for cutoff [...] Standards of Medical Care in Diabetes 2016; [place] Diabetes Association. Diabetes Care. 2016;39(Suppl 1). Performed By: #### GFR #### [facility] [address] [place], [place] [address] Potassium [Moles/Vol] 3.8 3.7-5.1 mmol/L Normal 06-09-[address] [facility] (00 000) Comment: Performed By: #### GFR #### [facility] [address] [place], [place] [address] Sodium [Moles/Vol] 141 136-144 mmol/L Normal 06-09-2020 [facility] (33326) Comment: Performed By: #### GFR #### [facility] [address] [place], [place] [address] Urea nitrogen [Mass/Vol] 9 7-21 mg/dL Normal 06-09 [facility] (60058) Comment: Performed By: #### GFR #### [facility] [address] [place], [place] [address] protime on INR Coag (PPP) [Relative 1.07 0.90-1.30 {INR} Normal 06-08 [facility] time] System (00 000) Comment: Result Comment: Vitamin K An tagonist (VKA) Therapeutic Range: INR 2 to 3 (Target INR of 2.5) Note: For patients treated w ith VKA drugs, such as warfarin, the [place] [employer] Chest Ph ys[employer] 2012 Guideline recommends a therapeutic INR range of 2 to 3 (target INR of 2.5). This recommendation includes high -risk patients with antiphospholipid syndrome with previous arter ial or venous thromboembolism, current-generation mechanica l or bioprosthetic aortic heart valve replacement. Note: Patients with garage construction equipment mechanic al aortic valve replacement and additional risk factors for thromboembolic events (atrial fibrillation, previous throm boembolism, LV dysfunction, hypercoagulable conditions) or an older generation mechanical AVR (i.e., ball in-Cage) or any mechanical MVR should have a INR therapeutic range of 2 .5 to 3.5 target INR of 3). Francktt GH, et al. Chest 2012 ; 141:7S-47S Calderon RA et [facility]. [facility] 20 17; 70: 252-289 Performed By: #### GFR #### [facility] [address] [place], [place] [address] PT Coag (PPP) [Time] 11.1 9.7-13.0 sec Normal 0 [facility] (18273) Comment: Performed By: #### GFR #### [facility] [address] [place], [place] [address] phosphorous blood o n 2020-06-08 Phosphate [Mass/Vol] 3.3 2.7-4.8 mg/dL Normal 0 [facility] (73935) Comment: Performed By: #### GFR #### [facility] [address] [place], [place] [address] nursing prog on NURSING PROG HNO ID: [id number] Normal 06-08-20 20 [facility] Author: Garo (Rn) LUCIUS Jackson [facility] Service: ? ([id number]) Author Type: Registered Nurse Type: Nursing Progress Note Filed: 06/08/2020 10:56 AM Note Text: Nursing Progress Note Patient Name: Sally Vargas Patient Location: [place] [id number] Spoke with Doctor Dick regarding IV contrast allergy and th e need for steroid prep. This note was completed by: Garo Jackson RN mri panc/james wo/w ivcon on 2020-06-08 MRI PANC/JAMES WO/W Final Report Normal 0 [place] [facility] IVCON DATE OF EXAM: Jun 08 2020 6:[address] [place] [address] 0730 - MRI PANC/JAMES WO/W IVCON / ([id number]) PROCEDURE REASON: Liver lesion, >1cm, US indeterminate, [...] x 8.0 cm . 2. Normal MRCP. Pecan Mallow Dipper: HERMINIO Transcribe Date/Time: Jun 08 2020 7:48P Dictated by : ALICE ALCARAZ MD This examination was interpreted and the report reviewed and electronically signed by: ALICE ALCARAZ MD on Jun 08 2020 8:42PM EST mri 3d post processing on 2020-06-08 MRI 3D POST Final Report Normal 06-08-2020 [facility] PROCESSING DATE OF EXAM: Jun 08 2020 6:31PM [facility] 0280 - MRI 3D POST PROCESSING / ([id number]) PROCEDURE REASON: Abd pain, chronic, intermittent Physician [...] x 8.0 cm . 2. Normal MRCP. Pecan Mallow Dipper: HERMINIO Transcribe Date/Time: Jun 08 2020 7:48P Dictated by : ALICE ALCARAZ MD This examination was interpreted and the report reviewed and electronically signed by: ALIEC ALCARAZ MD on Jun 08 2020 8:42PM EST magnesium blood on 2020-06-08 Magnesium [Mass/Vol] 2.0 1.7-2.3 mg/dL Normal 0 [facility] (62634) Comment: Performed By: #### LIP #### [facility] [address] [place], [place] [address] lipase blood on Lipase Blood 31 16-61 U/L Normal 06-08-2020 [facility] (13303) Comment: Performed By: #### GFR #### [facility] [address] [place], [place] [address] history physical on 2020-06-08 HISTORY HNO ID: [id number] Normal 06-08-2020 [place] PH[facility]ICAL Author: Chris Kurtz General Service: General Surgery Medical Author Type: Resident Center Type: [facility] ([id number]) Filed: 06/08/2020 7:24 AM Note Text: Attestation signed by Mala Almendarez at 06/08/2020 7:09 PM Attending Note I personally saw and examined the patient. I reviewed the resident's note. I agree with the resident's assessment and plan with the [facility] revisions and/or additions: Admit for symptomatic hepatic cyst. Plan for cyst fenestrati on on Thursday. Signature: Mala Almendarez MD Date: 06/08/2020 Time: 7:09 PM HISTORY AND PHYSICAL EXAMINATION SERVICE DATE: 06/08/2020 SERVICE TIME: 7:12 AM Subjective CHIEF COMPLAINT: Abdominal Pain HPI: 39 year old female presents as a direct admission to [facility] with abdominal pain and a known [...] liver cyst 05/24/[address] [facility] 11/2009 and 04/2010 showe 4 mm increase in size . No pain. No elevated LFTs on 03/11/2010. - Calculus of kidney 05/17/[address] Nicolas: Hospitalized age 20, and again later -- no procedures so far ([facility], [address] [facility]) - Cancer (HCC) - Diverticulosis - [...] Approx. 3 cigarettes daily-1 pack every w [place] Substance Use Topics - Alcohol use: Yes [...] Albumin [Mass/Vol] 4.7 3.9-4.9 g/dL Normal 06-08-2020 [facility] (11633) Comment: Performed By: #### GFR #### [place] [address] ALP [Catalytic activity/Vol] 94 34-123 U/L Normal 0 06-08-2020 [facility] () Comment: Performed By: #### GFR #### [facility] [address] [place], [place] [address] ALT [Catalytic activity/Vol] 17 7-38 U/L Normal 0 06-08-2020 [facility] () Comment: Performed By: #### GFR #### [facility] [address] [place], [place] [address] AST [Catalytic activity/Vol] see below 13-35 Normal 0 06-08-2020 [facility] () Comment: Result Comment: Unable to as say. Specimen Hemolyzed Performed By: #### GFR #### [facility] [address] [place], [place] [address] Bilirubin [Mass/Vol] see below 0.0-0.[address] [facility] () Comment: Result Comment: Unable to as say. Specimen Hemolyzed Performed By: #### GFR #### [address] [address] Bilirubin [Mass/Vol] 0.3 0.2-1.3 mg/dL Normal 0 [facility] (54270) Comment: Performed By: #### GFR #### [address] [address] Protein [Mass/Vol] 7.8 6.3-8.0 g/dL Normal 06-08-2020 [facility] (24701) Comment: Performed By: #### GFR #### [facility] [address] [place], [place] [address] hemogram on 2020-05 Erythrocyte distribution 13.3 11.7-14.4 % Normal 06-08 [facility] width (RBC) [Ratio] System (85543) Comment: Performed By: #### LIP #### [address] [address] Hematocrit (Bld) [Volume 38.1 34.1-44.9 % Normal 06-08 [place] [facility] fraction] System (00 000) Comment: Performed By: #### LIP #### [facility] [address] [place] [id number] Hemoglobin (Bld) 11.8 11.2-15.7 g/dL Normal 06-08-2020 [facility] [Mass/Vol] System (0 0000) Comment: Performed By: #### LIP #### [facility] [address] [place] [id number] MCH (RBC) [Entitic mass] 28.4 25.6-32.2 pg Normal 06-08 [facility] (00 000) Comment: Performed By: #### LIP #### [facility] [address] [place] [address] MCHC (RBC) [Mass/Vol] 31.0 31.6-34.8 % Low 06-08-20 20 [facility] (25945) Comment: Performed By: #### LIP #### [facility] [address] [place] [id number] MCV (RBC) [Entitic vol] 91.8 79.4-94.[address] [facility] (00 000) Comment: Performed By: #### LIP #### [facility] [address] [place] [address] Platelet mean volume (Bld) 11.6 9.4-12.[address] [facility] [Entitic vol] System (89977) Comment: Performed By: #### LIP #### [facility] [address] [place], [place] [address] Platelets (Bld) [#/Vol] 230 182-369 thou/cmm Normal 2019 [facility] (00 000) Comment: Performed By: #### LIP #### [facility] [address] [place] [id number] RBC (Bld) [#/Vol] 4.15 3.93-5.22 mil/cmm Normal 06-08-2020 [employer] [facility] (00 000) Comment: Performed By: #### LIP #### [facility] [address] [place] [id number] RDW SD 44.9 36.4-46.3 fl Normal 06-08-2020 [facility] (20902) Comment: Performed By: #### LIP #### [facility] [address] [place], [place] [address] WBC (Bld) [#/Vol] 7.30 3.98-10.04 thou/cmm Normal 06-08-2020 [facility] (00 000) Comment: Performed By: #### LIP #### [facility] [address] [place], [place] [address] case mgt init asses on 2020-06-08 CASE MGT INIT HNO ID: [id number] Normal 020 [facility] Author: Britni (Rn) [facility] Service: Care Management ([id number]) Author Type: Registered Nurse Type: Care Mgt Initial Assessment Filed: 06/08/2020 11:00 AM Note Text: CARE MANAGEMENT: ASSESSMENT AND DISCHARGE PLAN SERVICE DATE: June 08, 2020 SERVICE TIME: 10:50 AM PRIMARY CARE PHYSICIAN: Marcelino Mejia MD (Confirmed with patient) ADMISSION STATUS: Inpatient Needs Prior to Discharge: Pharmacy Bedside Delivery MEDICAL: [facility] MEDICAID Patient/Protection Consultant Stated Goals: To return home to life [...] completed Advance Directive: Current Advance Directive: None Supervisor Post Wave Attempted to Assist with AD Completion: Yes [...] Patient Currently Receive Any Community Services or [facility] e Care?: None Equipment Prior to Admission: [...] Completely I feel financially burdened by my iol-ye-rkjfoa expenses for my prescription medication:: 0 - Disagree Completely Risk Score: 0 Patient is categorized as: Low risk < 2 Are you interested in bedside delivery of your medications? Yes Is Patient Psychosocially Complex?: No ASSESSMENT AND PLAN: Medical Needs: Medical Needs: Two or more chronic diseases Psychosocial Needs: Psychosocial Needs: None FREEDOM OF CHOICE EXPLAINED: [place] of Choice Given: No Reason Not Given: [...] 08, 2020 TIME: 10:50 AM PAGER/CONTACT #: [phone] basic metabolic panel on 2020-06-08 Anion gap [Moles/Vol] 11 9-18 mmol/L Normal 06-08-20 [facility] (32776) Comment: Performed By: #### LIP #### [facility] [address] [place], [place] [address] Calcium [Mass/Vol] 9.6 8.5-10.2 mg/dL Normal 06-08-2020 [facility] (87819) Comment: Performed By: #### LIP #### [facility] [address] [place], [place] [address] Chloride [Moles/Vol] 104 97-105 mmol/L Normal 0 [facility] (17861) Comment: Performed By: #### LIP #### [facility] [address] [place], [place] [address] CO2 Blood 25 22-30 mmol/L Normal 06-08-2020 [facility] (99240) Comment: Performed By: #### LIP #### [facility] [address] [place], [place] [address] Creatinine [Mass/Vol] 0.80 0.58-0.96 mg/dL Normal 06-08-20 [facility] (00 000) Comment: Performed By: #### LIP #### [facility] [address] [place], [place] [address] Glucose [Mass/Vol] 91 74-99 mg/dL Normal 06-08-2020 [facility] (92141) Comment: Result Comment: The [place] Diabetes Association (ADA) provides guidance for cutoff [...] Standards of Medical Care in Diabetes 2016; [place] Diabetes Association. Diabetes Care. 2016;39(Suppl 1). Performed By: #### LIP #### [facility] [address] [place], [place] [address] Potassium [Moles/Vol] 3.7 3.7-5.1 mmol/L Normal 06-08-20 [facility] (00 000) Comment: Performed By: #### LIP #### [facility] [address] [place], [place] [address] Sodium [Moles/Vol] 140 136-144 mmol/L Normal 06-08-2020 [facility] (05018) Comment: Performed By: #### LIP #### [facility] [address] [place], [place] [address] Urea nitrogen [Mass/Vol] 13 7-21 mg/dL Normal 06-08 [facility] (54461) Comment: Performed By: #### LIP #### [facility] [address] [place], [place] [address] allied health on 03-06-25 ALLIED HEALTH HNO ID: [id number] Normal 020 [facility] Author: Deepa Mcintosh) [facility] ([id number]) Service: Radiology Author Type: [employer] Scout Type: Allied Health Filed: 06/08/2020 7:02 PM Note Text: Spoke to Garo (RN), in regards to her itching and scratching after the MRI was completed. Garo informed me that she had been itching an d scratching all day. Garo came down and gave the patient medication for the itching and took her back to the room. Kelley Noriega ALLIED HEALTH HNO ID: [id number] Normal 020 [facility] Author: Deepa Mcintosh) [facility] ([id number]) Service: Radiology Author Type: [employer] Scout Type: Allied Health Filed: 06/08/2020 5:56 PM [...] to [facility] documentation RADIOLOGY DEPARTMENT: MR; Exam(s) Completed: Body: Pancreas/ Biliary SIGNATURE: RT Masoud PATIENT NAME: Sally Vargas DATE: June 08, 2020 TIME: 5:53 PM ALLIED HEALTH HNO ID: [id number] Normal 020 [facility] Author: Deepa (Rt) [facility] [place] ([id number]) Service: Radiology Author Type: [employer] Scout Type: Allied Health Filed: 06/08/2020 4:21 PM Note Text: Called RN to get MRI order changed to w/wo per radiology pro tocol. Patient is not listed as allergy to gadolinium and creat is WNL. Mira l schedule STAT MRI as soon as order is changed activated ptt on 03-06-25 aPTT Coag (Bld) [Time] 30.5 23.0-32.[address] [facility] (00 000) Comment: Result Comment: Unfractionat [...] AP TT reagent in use throughout the [facility]. Performed By: #### GFR #### [place] [address] hosp on 2020-06-07 HOSP Patient:Sally Vargas Normal 05-16 [place] MRN: General Height:5' 1(1.549 m) Medical Weight:197 lb 9.6 oz (89.631 kg) Center Outpatient Medications as of 06/11/20: (63342) prazosin (MINIPRESS) 1 mg cap hyoscyamine (LEVSIN) [...] the resident's assessment and [facility] revisions and/or additions: Admit for symptomatic [...] liver cyst 05/24/[address] [facility] 11/2009 and 04/2010 showe 4 mm increase in size . No pain. No elevated LFTs on 03/11/2010. - Calculus of kidney 05/17/[address] Nicolas: Hospitalized age 20, a nd again later -- no procedures so far ([facility], [facility], [address] [facility]) - Cancer (HCC) - Diverticulosis - [...] Approx. 3 cigarettes daily-1 pack every w [place] Substance Use Topics - Alcohol use: Yes [...] questions or concerns Thu-Thu 6a-5p please page [phone]. After 5pm and on Weekends an d Holidays, please page [phone] if in ICU or [phone] if on RNF. Britni Grimaldo, RN, RN 06/08/2020 11:00 AM Signed CARE MANAGEMENT: ASSESSMENT AND DISCHARGE PLAN SERVICE DATE: June 08, 2020 SERVICE TIME: 10:50 AM PRIMARY CARE PHYSICIAN: Marcelino Mejia MD (Confirmed with patient) ADMISSION STATUS: Inpatient Needs Prior to Discharge: Pharmacy Bedside Delivery MEDICAL: [facility] MEDICAID Patient/Protection Consultant Stated Goals: To return home to life as it was Health Insurance: [employer] Issues Impacting Discharge Plan: Uncontrolled Uncontrolled: History [...] completed Advance Directive: Current Advance Directive: None Supervisor Post Wave Attempted to Assist with AD Completion: Yes [...] Receive Any Community Services or [facility] Care?: None Equipment Prior to Admission: None [...] Completely I feel financially burdened by my rrs-le-esbivw expens es for my prescription medication:: 0 - Disagree Completely Risk Score: 0 Patient is categorized as: Low risk < 2 Are you interested in bedside delivery of your medications? Yes Is Patient Psychosocially Complex?: No ASSESSMENT AND PLAN: Medical Needs: Medical Needs: Two or more chronic diseases Psychosocial Needs: Psychosocial Needs: None FREEDOM OF CHOICE EXPLAINED: [place] of Choice Given: No Reason Not Given: [...] 08, 2020 TIME: 10:50 AM PAGER/CONTACT #: [phone] Jasmine Chavez, RN 06/08/2020 10:56 AM Signed Nursing Progress Note Patient Name: Sally Vargas Patient Location: [place] [id number]- Spoke with Doctor Dick regarding IV con trast allergy and the need for steroid prep. This note was completed by: LUCIUS Chavez RT, APERA BAGS 06/08/2020 4:21 PM Signed Called RN to [...] questions or concerns Mon-Fri 6a-5p please page [phone]. After 5pm and on Weekends and Holidays, please page [phone]. SUBJECTIVE: NAEON. Afebrile. Patient resting in bed [...] - 06/09/20 0606/09/20699 - 06/10/20 0659 Shift 9949-9231 1793-0719 23 00-0659 24 Hour Total 3228-8505 0229-6695 1956-1350 24 Hour Total INTAKE Shift Total OUTPUT [...] questions or concerns Thu-Thu 6a-5p please page [phone]. After 5pm and on Weekends an d Holidays, please page [phone] if in ICU or [phone] if on [...] 7:29 AM Attested Attestation signed by Johnnie Ryenoso at 06/10/2020 2:40 P M I saw and evaluated the patient. Discussed with the reside nt and agree with resident's findings and plan as documented in the resident's note. For surgery tomorrow. Still complaining of pain. Elective General Surgery Progress Note SERVICE DATE: 06/10/2020 [facility] Service Pager: For questions or concerns Mon-Fri 6a-5p please page [phone]. After 5pm and on Weekends and Holidays, please page [phone]. SUBJECTIVE: NAEON. Afebrile. Patient resting in bed [...] 0659 06/10/20 0700 - 06/11/20 0659 Shift 7888-2634 2754-9836 23 00-0659 24 Hour Total 8425-3341 4354-3551 8433-6993 24 Hour Total INTAKE PO 681 004 3450 PO 539 559 1915 Shift Total 187 730 4671 OUTPUT Urine Urine Not Saved. 2 x [...] questions or concerns Thu-Thu 6a-5p please page [phone]. After 5pm and on Weekends an d [...] 2020 Notes: Pre-surgery Patient Nothing needed tonight. Telegraph Repeater Mechanic Signature: Chaplain Erick To contact the Spiritual Care Department: Please call [phone] or Page the On-Call Telegraph Repeater Mechanic at [facility] [place] [phone] Thank you for the opportunity to be of service. This is an electronically created document. IF PRINTED, PLEASE DO NOT REMOVE FROM THE CHART OR MODIFY NH INTED COPY. Kimmie Jennings DO 06/11/2020 7:03 AM Cosign Needed Elective General Surgery Progress Note SERVICE DATE: 06/11/2020 [facility] Service Pager: For questions or concerns Mon-Fri 6a-5p please page [phone]. After 5pm and on Weekends and Holidays, please page [phone]. SUBJECTIVE: NAEON. Afebrile. Patient resting in bed [...] 0659 06/11/20 07 - 06/12/20 0659 Shift 2651-9177 9467-3861 23 00-0659 24 Hour Total 5399-9097 9223-5502 0575-0493 24 Hour Total INTAKE PO 600 600 [...] questions or concerns Thu-Thu 6a-5p please page [phone]. After 5pm and on Weekends an d [...] 11, 2020 TIME: 9:10 AM PAGER/CONTACT #: [phone] Ruben Thompson MD 06/11/2020 9:51 AM Signed [...] liver cyst 05/24/[address] [facility] 11/2009 and 04/2010 showe 4 mm increase in size . No pain. No elevated LFTs on 03/11/2010. - Calculus of kidney 05/17/[address] Nicolas: Hospitalized age 20, a nd again later -- no procedures so far ([facility], [facility], [address] [facility]) - Cancer (HCC) - Diverticulosis - [...] Approx. 3 cigarettes daily-1 pack every w [place] Substance Use Topics - Alcohol use: Yes [...] Chris (Res) Demshar 3 mL at 05/16 05/03 [...] INTRAVENOUS q 3 H PRN Nigel (Res) [place] 1 mg at 0536 - [MAR Hold [...] June 11, 2020 TIME: 9:49 AM CSN: [id number] Progress Notes ([facility]): Johnny Winn MD 06/06/2020 10:30 AM [...] on 2020-06-06 CNPN Telephone (GSTNOR) Normal 06-06-2020 [place] [facility] SALLY VARGAS ([id number]) 1980 F [place] Date Time Provider Department ([id number]) 06/06/20 JOHNNY WINN During your visit today, [...] She is also following up with Dr Almendraez for her complex liver c ysts. All questions answered. MD Sarah CunninghamStanton [facility] Facility[facility]ayy Pss 06/06/2020 10:53 AM Signed Patient is [...] Order(s):CONSULT TO ALLERGY/IMMUNOLOGY [ 9001] Order #: [id number]: 1 FUTURE Prescriptions as of 06/06/2020 Sig: [...] vomiting [R11.2] 05/25/2020 Encounter Status:Closed by PA ALVARDAO, JOHNNY Javier on 06/06/20 progress on 2020-05 PROGRESS HNO ID: [id number] Normal 06-05-2020 [facility] Author: Mala sosa ([id number]) Service: ? Author Type: Physician Type: Progress [...] MD progress on 2020-05 PROGRESS HNO ID: [id number] Normal 06-01-2020 [facility] Author: Branden (Network Navigator) [facility] [place] ([id number]) Service: ? Author Type: Outreach And Education Social Worker Type: Progress Notes Filed: 06/01/2020 12:42 PM Note Text: Patient has follow up with next Thursday for Pancreatitis. progress on 2020-05 PROGRESS HNO ID: [id number] Normal 05-31-2020 [facility] Author: Marcelino Mejia [place] ([id number]) Service: ? Author Type: Physician Type: Progress Notes Filed: 05/31/2020 10:49 AM Note Text: Patient has a vp site and would work on getting h er back in with them. She has been seeing them for recurring pancreatit is and stomach issues. I have nothing further I can add to her care at this time. PROGRESS HNO ID: [id number] Normal 05-31-2020 [facility] Author: Branden (Network Navigator) [facility] [place] ([id number]) Service: ? Author Type: Outreach And Education Social Worker Type: Progress Notes Filed: 05/31/2020 8:49 AM [...] appointment. Thank you SUMMARY: Pt discharged from [facility] on May 29, 2020 Admitted for: Intractable nausea and vomitting Contact made with patient: Yes Hi my name is Branden Greg, NETWORK NAVIGATOR and I am calling from the [facility] on behalf of your PCP, Marcelino Mejia [...] like to speak with a social work boarder steam to help give you support for any [...] I will send your request to a applied psychology chair who will contact and assist you with [...] out to patient to assist with scheduling GUSSET EDGER: Rajinder Meyers status is: Active account Thank [...] on 2020-05-31 CNPN Telephone (GSTNOR) Normal 05-31-2020 [place] [facility] SALLY VARGAS ([id number]) 1980 [facility] Date Time Provider Department ([id number]) 05/31/20 JOHNNY WINN GSTNOR During your visit today, we recorded the following informati on about you: Pierce Sunil Hutchinson 05/31/2020 2:37 PM Signed Patient call, said she was doing ok yesterday, today having epigastric abdominal pain, nausea and vomiting. Has appt [facility] Dr. Almendarez next week. Advised ER [...] 05/31/20 progress on 2020-05 PROGRESS HNO ID: [id number] Normal 05-30-2020 [facility] Author: Allie (Network Navigator) Skyler Lara ([id number]) Service: ? Author Type: Outreach And Education Social Worker Type: Progress Notes Filed: 05/31/2020 8:49 AM Note Text: TRANSITIONAL CARE MANAGEMENT (TCM) COMMUNITY MONITORING PROG BRITTANI Provider Action/FYI: Message left for patient. Attempting to schedule TCM appoint ment SUMMARY: Pt discharged from [place] on 05/29. Admitted for: intractable nausea and vomiting Contact made with patient: No - scheduled next outreach for next business day in the Track Pt Outreach section Outreach ended cnptoutreach on CNPTOUTREACH Patient Outreach (FAMPWS) Normal 0 05-30-2020 [place] SALLY Martinez ([id number]) 1980 [facility] Date Time Provider Department ([id number]) 05/30/20 [facility] HOLL[facility]IG[facility] During your visit today, we recorded the following informati on about you: Allie Holland NETWORK NAVIGATOR 05/31/2020 8:49 AM Signed TRANSITIONAL CARE MANAGEMENT (TCM) COMMUNITY MONITORING PROG BRITTANI Provider Action/FYI: Message left for patient. Attempting to schedule TCM appoint ment SUMMARY: Pt discharged from [place] on 05/29. Admitted for: intractable nausea and [...] appointment. Thank you SUMMARY: Pt discharged from [facility] on May 29, 2020 Admitted for: Intractable nausea and vomitting Contact made with patient: Yes Hi my name is Branden [place], NETWORK NAVIGATOR and I am calling from the [facility] on behalf of your PCP, Marcelino Mejia [...] like to speak with a social work boarder steam to help give you support for any [...] I will send your request to a applied psychology chair who will contact and assist you with [...] out to patient to assist with scheduling GUSSET EDGER: Patient Mira status is: Active account Thank [...] 05/31/2020 10:49 AM Signed Patient has a vp site and would work on getting her back [...] and vomiting [R11.2] 05/25/2020 Encounter Status:Closed by [facility] NETWORK NAVIGATORALBAN on 05/31/20 progress on 2020-05 PROGRESS HNO ID: [id number] Holder 05-29-2020 [place] Author: Vickie Srivastava General Service: Hospital Medicine Medical Author Type: Resident Center Type: Progress Notes ([id number]) Filed: 05/29/2020 2:51 PM Note Text: Attestation [...] PM: You may reach the House Medicine digital marketing intern currently assigned to this patient by jack mahoney their pager number on the treatment team (they will be assigned as the i ntern or resident). It is the last four digits in the phone number be ginning with ([phone]). We encourage the use of too.me Secure Chat. SUBJECTIVE HPI: 39 year old F PMHx idiopathic pancreatitis, hepatic cys ts presenting to the ED with intractable nausea and vomiting as well as RU Q abdominal pain for the past 3 days. States that she called her GI doct or Dr. Winn and he told her to come into the ED. She has a scope [facility] ed for 05/29 with [...] DAILY 05/25/201935 -- 05/25/201944 pneumatic compression stockings (nj,oh) VTE Prophylaxis: VTE prophylaxis appropriate GI Prophylaxis: Indicated due to chronic acid suppression th erapy as an outpatient Telemetry: no Disposition: Home Code Status: Not on file Plan of care discussed with: Provider, RN, Patient SIGNATURE: Vickie Srivastava MD PATIENT NAME: Sally shannon DATE: May 29, 2020 TIME: 1:53 PM plan of care on PLAN OF CARE HNO ID: [id number] Normal 05-29-20 [facility] Author: Irma Estrada (Pharmacist) Center ([id number]) Service: Pharmacy Author Type: Pharmacist Type: Plan [...] PHARMACIST May 29, 2020 2:50 PM Pager: [phone] 05/29/2020 2:50 PM Medication List START taking [...] were sent to e- [facility]/pharmacy #[id number] [place] [address] - [address] - [phone] [address] [address] [facility] [address] ? oxyCODONE IR 5 mg immediate release tablet PLAN OF CARE HNO ID: [id number] Normal 05-29-20 [facility] Author: Irma Estrada (Pharmacist) Center ([id number]) Service: Pharmacy Author Type: Pharmacist Type: Plan of Care Filed: 05/29/2020 2:49 PM Note Text: MEDICATION RECONCILIATION Patient Name:Marlen Vargas : 1980 Reconciliation: Yes All SERVICE LINE LAYER medications addressed by LIP Additional comments: aggree with student note Allergies: ALLERGIES Allergen Reactions - Penicillins Rash - Cephalexin Itching - Chlorhexidine Rash Skin rash - Toradol [Ketorolac] Rash - Tramadol Rash - Asa [Salicylates] Other: See Comments ulcers - Contrast Dye [Iodin* Shortness of Breath - Ibuprofen GI Upset - Prednisone Other: See Comments makes agitated and mean Preferred Pharmacy: [facility] Current SERVICE LINE LAYER Medications: Prior to Admission medications as of 05/29/20927 Medication Sig Last Dose Taking prazosin (MINIPRESS) 1 mg cap Take 1 mg by mouth daily at [facility]. Yes hyoscyamine (LEVSIN) 0.125 mg tablet [...] 2:47 PM PLAN OF CARE HNO ID: [id number] Normal 05-29-[address] [place] [address] Author: Irma Estrada (Pharmacist) Center ([id number]) Service: Pharmacy Author Type: Pharmacist Type: Plan of Care Filed: 05/29/2020 2:47 PM Note Text: MEDICATION HISTORY Patient Name:Marlen Vargas : 1980 Source of history:Patient: Reliability of source: Appears re liable, clearly identified: Medication name, Medication frequency an d Timing of last dose and Pharmacy records: [facility] Pharm[facility] #[id number] in [place], [place] [phone] Medication Nonadherence Identified: No barriers noted The above information represents the best possible medicatio n history: Yes Additional comments: Confirmed with patient and pharmacist hanna hollis [facility] Pharmacy - Recent changes to medications outpatient from Dr. Winn, patient did not start Sucralfate and Promethazine prior to admission and only took 1 dose of Hyoscyamine prior to admission Diqbf-kg-Sskcwxdel Medication List Adjustments: Medication Regimen Changes: Promethazine [...] mean Preferred Pharmacy: [facility] Pharmacy #[id number] phone [phone] Current SERVICE LINE LAYER Medications: Prior to Admission medications as of 05/29/20 0925 Medication Sig Last Dose Taking prazosin (MINIPRESS) 1 mg cap Take 1 mg by mouth daily at [facility]. Yes hyoscyamine (LEVSIN) 0.125 mg tablet [...] stomach, 1/2 hr before meal. Maggi Hernandez (Plant Maintenance Worker) May 29, 2020 9:14 AM mdrd gfr on 2020-05 GFR/1.73 sq M >60 >60mL/min/1.73m2 mL/min/{1.73_m2} Normal [facility] among [facility] non-blacks MDRD (000 00) (S/P/Bld) [Vol rate/Area] Comment: Result Comment: If the patie nt is , multiply the result by 1.210. Performed By: #### GFR #### [address] [address] hemogram on 2020-05 Erythrocyte distribution 13.2 11.7-14.4 % Normal 05-29 [facility] width (RBC) [Ratio] System (02141) Comment: Performed By: #### LIP #### [address] [address] Hematocrit (Bld) [Volume 36.1 34.1-44.9 % Normal 05-29 [facility] fraction] System (00 000) Comment: Performed By: #### LIP #### [facility] [address] [place], [place] [address] Hemoglobin (Bld) 11.5 11.2-15.7 g/dL Normal 05-29-2020 [facility] [Mass/Vol] System (0 0000) Comment: Performed By: #### LIP #### [facility] [address] [place], [place] [address] MCH (RBC) [Entitic mass] 29.0 25.6-32.2 pg Normal 05-29 [facility] (00 000) Comment: Performed By: #### LIP #### [facility] [address] [place], [place] [address] MCHC (RBC) [Mass/Vol] 31.9 31.6-34.8 % Normal 05-29-[address] [facility] (77628) Comment: Performed By: #### LIP #### [facility] [address] [place], [place] [address] MCV (RBC) [Entitic vol] 90.9 79.4-94.[address] [facility] (00 000) Comment: Performed By: #### LIP #### [facility] [address] [place], [place] [address] Platelet mean volume (Bld) 10.9 9.4-12.[address] [facility] [Entitic vol] System (72892) Comment: Performed By: #### LIP #### [facility] [address] [place], [place] [address] Platelets (Bld) [#/Vol] 223 182-369 thou/cmm Normal 2019 [facility] (00 000) Comment: Performed By: #### LIP #### [facility] [address] [place], [place] [address] RBC (Bld) [#/Vol] 3.97 3.93-5.22 mil/cmm Normal 05-29-2020 [employer] [facility] (00 000) Comment: Performed By: #### LIP #### [facility] [address] [place], [place] [address] RDW SD 43.5 36.4-46.3 fl Normal 05-29-2020 [facility] (31802) Comment: Performed By: #### LIP #### [facility] [address] [place], [place] [address] WBC (Bld) [#/Vol] 5.88 3.98-10.04 thou/cmm Normal 05-29-2020 [facility] (00 000) Comment: Performed By: #### LIP #### [facility] [address] [place], [place] [address] consult on CONSULT HNO ID: [id number] Normal 05-29-2020 [facility] Author: Maria Luisa Joyner [facility] Service: Pain Management ([id number]) Author Type: Physician Type: Consults Filed: 05/29/2020 11:10 AM Note Text: SALLY VARGAS 39 year old PAIN CONSULTATION: Abdominal pain, history of idiopathic verdugo creatitis. 24 HOUR COMFORT MEDICATIONS: Tylenol x0 Benadryl 50 mg x 2 Phenergan 25 mg x 2 Oxycodone 10 mg x 3 Quetiapine 100 mg daily [place] prescription history Shows occasional use of [...] hepatic cysts, and no evidence of ac eagle pancreatitis with normal lipase, and CBC. At [...] ORAL q 4 H [facility] Johnny Personhu - prazosin (MINIPRESS) 1 [...] Approx. 3 cigarettes daily-1 pack every w [place] Substance Use Topics - Alcohol use: Yes [...] gap [Moles/Vol] 11 9-18 mmol/L Normal 05-29-20 [facility] (06944) Comment: Performed By: #### LIP #### [facility] [address] [place], [place] [address] Calcium [Mass/Vol] 8.8 8.5-10.2 mg/dL Normal 05-29-2020 [facility] (48746) Comment: Performed By: #### LIP #### [facility] [address] [place], [place] [address] Chloride [Moles/Vol] 104 97-105 mmol/L Normal 0 [facility] (56591) Comment: Performed By: #### LIP #### [facility] [address] [place], [place] [address] CO2 Blood 23 22-30 mmol/L Normal 05-29-2020 [facility] (24364) Comment: Performed By: #### LIP #### [facility] [address] [place], [place] [address] Creatinine [Mass/Vol] 0.78 0.58-0.96 mg/dL Normal 05-29-20 [facility] (00 000) Comment: Performed By: #### LIP #### [facility] [address] [place], [place] [address] Glucose [Mass/Vol] 88 74-99 mg/dL Normal 05-29-2020 [facility] (19123) Comment: Result Comment: The [place] Diabetes Association (ADA) provides guidance for cutoff [...] Standards of Medical Care in Diabetes 2016; [place] Diabetes Association. Diabetes Care. 2016;39(Suppl 1). Performed By: #### LIP #### [place] [address] Potassium [Moles/Vol] 3.4 3.7-5.1 mmol/L Low 05-29-20 [facility] (93906) Comment: Performed By: #### LIP #### [place] [address] Sodium [Moles/Vol] 138 136-144 mmol/L Normal 05-29-2020 [facility] (83401) Comment: Performed By: #### LIP #### [place] [address] Urea nitrogen [Mass/Vol] 6 7-21 mg/dL Low 05-29 [facility] (41031) Comment: Performed By: #### LIP #### [place] [address] surgical tissue exam on 2020-05-28 Surgical Tissue Test performed at [facility] Normal 05-28-2020 [facility] [address] [place] [address] ([id number]) NAME: SALLY VARGAS REQUESTING: JOHNNY WINN MD [...] 1 Comment: Performed By: #### LIP #### [place] [address] pt ed on 2020-05-28 PT ED HNO ID: [id number] Normal 05-28-2020 [facility] Author: Flakita Ragland RN [place] ([id number]) Service: Nursing Author Type: Registered Nurse Type: [...] Flakita Ragland RN PT ED HNO ID: [id number] Holder 05-28-2020 [facility] Author: Flakita Ragland RN Center ([id number]) Service: Nursing Author Type: Registered Nurse Type: [...] RN progress on 2020-05 PROGRESS HNO ID: [id number] Normal 05-28-2020 [place] Author: Vickie (Dena Srivastava [facility] Service: Hospital Medicine Medical Author Type: Resident Center Type: Progress Notes ([id number]) Filed: 05/28/2020 1:52 PM Note Text: Attestation [...] PM: You may reach the House Medicine digital marketing intern currently assigned to this patient by findin g their pager number on the treatment team (they will be assigned as the i ntern or resident). It is the last four digits in the phone number be ginning with ([phone]). We encourage the use of too.me Secure Chat. SUBJECTIVE HPI: 39 year old F PMHx idiopathic pancreatitis, hepatic cys ts presenting to the ED with intractable nausea and vomiting as well as RU Q abdominal pain for the past 3 days. States that she called her GI doct or Dr. Winn and he told her to come into the ED. She has a scope [facility] ed for 05/29 with [...] 05/25/20 193 -- 05/25/201944 pneumatic compression stockings (nj,id) VTE Prophylaxis: VTE prophylaxis appropriate GI Prophylaxis: Indicated due to chronic acid suppression th erapy as an outpatient Telemetry: no Disposition: Home Code Status: Not on file Plan of care discussed with: Provider, RN, Patient SIGNATURE: Vickie Srivastava MD PATIENT NAME: Sally shannon DATE: May 28, 2020 TIME: 1:53 PM operative no on 202 OPERATIVE NO HNO ID: [id number] Normal 05-28-20 [facility] Author: Johnny Mccall [facility] Service: Gastroenterology ([id number]) Author Type: Physician Type: Operative Report Filed: 05/28/2020 1:07 PM Note Text: OPERATIVE/PROCEDURE REPORT LOG ID: [id number] Surgery/Procedure Date: 05/28/2020 Incision/Procedure Start Time: 12:32 PM Incision Close/Procedure End Time: 1:00 PM Surgeon(s)/Proceduralist(s) and Director Supply Chain(s): Surgeon(s) and Role: * Johnny Personhu - [...] PPI. nursing prog on NURSING HNO ID: [id number] Normal 05-28-2020 [facility] Author: Rupal (Rn) LUCIUS Benitez General Service: Nursing Med ical Author Type: Registered Nurse Center Type: Nursing Progress Note ([id number]) Filed: 05/28/2020 5:25 AM Note Text: Nursing Progress Note Patient Name: Sally Vargas Patient Location: [id number] Attempted to draw AM labs. Was unsuccessful x 2 attempts. This note was completed by: Rupal Benitez RN hemogram on 2020-05 Erythrocyte distribution 13.2 11.7-14.4 % Normal 05-28 [facility] width (RBC) [Ratio] System (74524) Comment: Performed By: #### LIP #### [address] [address] Hematocrit (Bld) [Volume 32.2 34.1-44.9 % Low 05-28 [facility] fraction] System (00 000) Comment: Performed By: #### LIP #### [facility] [address] [place], [place] [address] Hemoglobin (Bld) [Mass/Vol] 10.1 11.2-15.7 g/dL Low [facility] (00 000) Comment: Performed By: #### LIP #### [facility] [address] [place], [place] [address] MCH (RBC) [Entitic mass] 28.5 25.6-32.2 pg Normal 05-28 [facility] (00 000) Comment: Performed By: #### LIP #### [facility] [address] [place], [place] [address] MCHC (RBC) [Mass/Vol] 31.4 31.6-34.8 % Low 05-28-[address] [facility] (36081) Comment: Performed By: #### LIP #### [facility] [address] [place], [place] [address] MCV (RBC) [Entitic vol] 90.7 79.4-94.[address] [facility] (00 000) Comment: Performed By: #### LIP #### [facility] [address] [place] [id number] Platelet mean volume (Bld) 10.7 9.4-12.[address] [facility] [Entitic vol] System (21869) Comment: Performed By: #### LIP #### [facility] [address] [place], [place] [address] Platelets (Bld) [#/Vol] 186 182-369 thou/cmm Normal 2019 [facility] (00 000) Comment: Performed By: #### LIP #### [facility] [address] [place], [place] [address] RBC (Bld) [#/Vol] 3.55 3.93-5.22 mil/cmm Low 05-28-2020 [facility] (47991) Comment: Performed By: #### LIP #### [facility] [address] [place], [place] [address] RDW SD 43.3 36.4-46.3 fl Normal 05-28-2020 [facility] (10396) Comment: Performed By: #### LIP #### [facility] [address] [place], [place] [address] WBC (Bld) [#/Vol] 6.36 3.98-10.04 thou/cmm Normal 05-28-2020 [facility] (00 000) Comment: Performed By: #### LIP #### [facility] [address] [place], [place] [address] consult on CONSULT HNO ID: [id number] Normal 05-28-2020 [facility] Author: Ramone Albarado [facility] Service: Pain Management ([id number]) Author Type: Physician Type: Consults Filed: 05/28/2020 9:09 AM Note Text: SALLY VARGAS 39 year old PAIN CONSULTATION: Abdominal pain, history of idiopathic verdugo creatitis. 24 HOUR COMFORT MEDICATIONS: Oxycodone 10 mg x 3 Quetiapine 100 mg daily [place] prescription history Shows occasional use of [...] hepatic cysts, and no evidence of ac eagle pancreatitis with normal lipase, and CBC. At [...] Approx. 3 cigarettes daily-1 pack every w [place] Substance Use Topics - Alcohol use: Yes [...] [Moles/Vol] 8 9-18 mmol/L Low 05-28-[address] [facility] (61472) Comment: Performed By: #### LIP #### [facility] [address] [place], [place] [address] Calcium [Mass/Vol] 7.2 8.5-10.2 mg/dL Low 05-28-2020 [facility] (24151) Comment: Performed By: #### LIP #### [facility] [address] [place], [place] [address] Chloride [Moles/Vol] 111 97-105 mmol/L High 0 [facility] (83314) Comment: Performed By: #### LIP #### [facility] [address] [place], [place] [address] CO2 Blood 22 22-30 mmol/L Normal 05-28-2020 [facility] (01102) Comment: Performed By: #### LIP #### [facility] [address] [place], [place] [address] Creatinine [Mass/Vol] 0.69 0.58-0.96 mg/dL Normal 05-28-[address] [facility] (00 000) Comment: Performed By: #### LIP #### [facility] [address] [place], [place] [address] Glucose [Mass/Vol] 73 74-99 mg/dL Low 05-28-2020 [facility] (10140) Comment: Result Comment: The [place] Diabetes Association (ADA) provides guidance for cutoff [...] Standards of Medical Care in Diabetes 2016; [place] Diabetes Association. Diabetes Care. 2016;39(Suppl 1). Performed By: #### LIP #### [facility] [address] [place], [place] [address] Potassium [Moles/Vol] 2.9 3.7-5.1 mmol/L Low 05-28-[address] [facility] (74385) Comment: Performed By: #### LIP #### [facility] [address] [place], [place] [address] Sodium [Moles/Vol] 141 136-144 mmol/L Normal 05-28-2020 [facility] (87422) Comment: Performed By: #### LIP #### [facility] [address] [place], [place] [address] Urea nitrogen [Mass/Vol] 5 7-21 mg/dL Low 05-28 [facility] (50206) Comment: Performed By: #### LIP #### [facility] [address] [place], [place] [address] anes preop on 05-28 ANES PREOP HNO ID: [id number] Normal 05-28-2020 [facility] Author: Delon [facility] Service: Anesthesiology ([id number]) Author Type: Physician Type: Anesthesia PreOp Filed: [...] liver cyst 05/24/[address] [facility] 11/2009 and 04/2010 showe 4 mm increase in size . No pain. No elevated LFTs on 03/11/2010. - Calculus of kidney 05/17/[address] Nicolas: Hospitalized age 20, and again later -- no procedures so far ([facility], most, [facility]) - Cancer (HCC) - Diverticulosis - [...] Approx. 3 cigarettes daily-1 pack every w [place] Substance Use Topics - Alcohol use: Yes [...] 50 mg ORAL q 6 H PRN Magig (Res) MD Mark 50 mg at 05/28/20 [...] May 28, 2020 TIME: 12:15 PM CSN: [id number] anes post on 05-28 ANES POST HNO ID: [id number] Normal 05-28-2020 [facility] Author: Delon Duenas [place] ([id number]) Service: Anesthesiology Author Type: Physician Type: Anesthesia [...] 1001 progress on 2020-05 PROGRESS HNO ID: [id number] Normal 05-27-2020 [place] Author: Vickie Srivastava [facility] Service: Hospital Medicine Medical Author Type: Resident Center Type: Progress Notes ([id number]) Filed: 05/27/2020 4:19 PM Note Text: Attestation [...] PM: You may reach the House Medicine digital marketing intern currently assigned to this patient by jack mahoney their pager number on the treatment team (they will be assigned as the i ntern or resident). It is the last four digits in the phone number be ginning with ([phone]). We encourage the use of too.me Secure Chat. SUBJECTIVE HPI: 39 year old F PMHx idiopathic pancreatitis, hepatic cys ts presenting to the ED with intractable nausea and vomiting as well as RU Q abdominal pain for the past 3 days. States that she called her GI doct or Dr. Winn and he told her to come into the ED. She has a scope [facility] ed for 05/29 with [...] DAILY 05/25/201935 -- 05/25/201944 pneumatic compression stockings (nj,oh) VTE Prophylaxis: VTE prophylaxis appropriate GI Prophylaxis: Indicated due to chronic acid suppression th erapy as an outpatient Telemetry: no Disposition: Home Code Status: Not on file Plan of care discussed with: Provider, RN, Patient SIGNATURE: Vickie Srivastava MD PATIENT NAME: Sally shannon DATE: May 27, 2020 TIME: 1:53 PM plan of care on PLAN OF CARE HNO ID: [id number] Normal 05-27-20 [facility] Author: Joe Romero) [facility] Service: Gastroenterology ([id number]) Author Type: Physician Director Supply Chain Type: Plan of Care Filed: 05/27/2020 1:17 [...] 27, 2020 TIME: 1:15 PM PAGER/CONTACT #: [employer] Education Teacher Pager hemogram on 2020-05 Erythrocyte distribution 13.3 11.7-14.4 % Normal 05-27 [facility] width (RBC) [Ratio] System (43358) Comment: Performed By: #### LIP #### [address] [address] Hematocrit (Bld) [Volume 35.9 34.1-44.9 % Normal 05-27 [facility] fraction] System (00 000) Comment: Performed By: #### LIP #### [address] [address] Hemoglobin (Bld) 11.3 11.2-15.7 g/dL Normal 05-27-2020 [facility] [Mass/Vol] System (0 0000) Comment: Performed By: #### LIP #### [facility] [address] [place], [place] [address] MCH (RBC) [Entitic mass] 29.1 25.6-32.2 pg Normal 05-27 [facility] (00 000) Comment: Performed By: #### LIP #### [facility] [address] [place], [place] [address] MCHC (RBC) [Mass/Vol] 31.5 31.6-34.8 % Low 05-27-[address] [facility] (83290) Comment: Performed By: #### LIP #### [facility] [address] [place], [place] [address] MCV (RBC) [Entitic vol] 92.5 79.4-94.[address] [facility] (00 000) Comment: Performed By: #### LIP #### [facility] [address] [place] [id number] Platelet mean volume (Bld) 10.6 9.4-12.[address] [facility] [Entitic vol] System (77552) Comment: Performed By: #### LIP #### [facility] [address] [place], [place] [address] Platelets (Bld) [#/Vol] 197 182-369 thou/cmm Normal 2019 [facility] (00 000) Comment: Performed By: #### LIP #### [facility] [address] [place], [place] [address] RBC (Bld) [#/Vol] 3.88 3.93-5.22 mil/cmm Low 05-27-2020 [facility] (58064) Comment: Performed By: #### LIP #### [facility] [address] [place], [place] [address] RDW SD 44.6 36.4-46.3 fl Normal 05-27-2020 [facility] (80032) Comment: Performed By: #### LIP #### [facility] [address] [place], [place] [address] WBC (Bld) [#/Vol] 6.15 3.98-10.04 thou/cmm Normal 05-27-2020 [facility] (00 000) Comment: Performed By: #### LIP #### [facility] [address] [place], [place] [address] basic metabolic panel on 2020-05-27 Anion gap [Moles/Vol] 10 9-18 mmol/L Normal 05-27-[address] [facility] (56061) Comment: Performed By: #### LIP #### [facility] [address] [place], [place] [address] Calcium [Mass/Vol] 8.6 8.5-10.2 mg/dL Normal 05-27-2020 [facility] (78007) Comment: Performed By: #### LIP #### [facility] [address] [place], [place] [address] Chloride [Moles/Vol] 106 97-105 mmol/L High 0 [facility] (88167) Comment: Performed By: #### LIP #### [facility] [address] [place], [place] [address] CO2 Blood 24 22-30 mmol/L Normal 05-27-2020 [facility] (23895) Comment: Performed By: #### LIP #### [facility] [address] [place], [place] [address] Creatinine [Mass/Vol] 0.87 0.58-0.96 mg/dL Normal 05-27-[address] [facility] (00 000) Comment: Performed By: #### LIP #### [facility] [address] [place], [place] [address] Glucose [Mass/Vol] 82 74-99 mg/dL Normal 05-27-2020 [facility] (54626) Comment: Result Comment: The [place] Diabetes Association (ADA) provides guidance for cutoff [...] Standards of Medical Care in Diabetes 2016; [place] Diabetes Association. Diabetes Care. 2016;39(Suppl 1). Performed By: #### LIP #### [facility] [address] [place], [place] [address] Potassium [Moles/Vol] 3.5 3.7-5.1 mmol/L Low 05-27-[address] [facility] (06192) Comment: Performed By: #### LIP #### [facility] [address] [place], [place] [address] Sodium [Moles/Vol] 140 136-144 mmol/L Normal 05-27-2020 [facility] (35864) Comment: Performed By: #### LIP #### [facility] [address] [place], [place] [address] Urea nitrogen [Mass/Vol] 7 7-21 mg/dL Normal 05-27 [facility] (69401) Comment: Performed By: #### LIP #### [facility] [address] [place], [place] [address] progress on 2020-05 PROGRESS HNO ID: [id number] Normal 05-26-2020 [place] Author: Vickie Srivastava [facility] Service: Hospital Medicine Medical Author Type: Resident Center Type: Progress Notes ([id number]) Filed: 05/26/2020 2:11 PM Note Text: Attestation signed by Oh Arreaga at 05/26/2020 2:23 PM Attending Note I personally saw and examined the patient on 05/26/20. I rev iewed the resident's note. I agree with the resident's assessment and plan unless otherwise noted. Signature: Oh Arreaga, DO Date: 05/26/2020 Time: 2:23 PM Pager: [phone] HOUSE MEDICINE SERVICE PROGRESS NOTE SERVICE DATE: May 26, 2020 SERVICE TIME: 1:53 PM NIGHT AND WEEKEND COVERAGE: From 6 AM to 5 PM: You may reach the House Medicine digital marketing intern currently assigned to this patient by jack g their pager number on the treatment team (they will be assigned as the i ntern or resident). It is the last four digits in the phone number be ginning with ([phone]). We encourage the use of too.me Secure Chat. SUBJECTIVE HPI: 39 year old F PMHx idiopathic pancreatitis, hepatic cys ts presenting to the ED with intractable nausea and vomiting as well as RU Q abdominal pain for the past 3 days. States that she called her GI doct or Dr. Winn and he told her to come into the ED. She has a [facility] ed for 05/[address] Winn. [...] 05/25/20 193 -- 05/25/201944 pneumatic compression stockings (nj,[place]) VTE Prophylaxis: VTE prophylaxis appropriate GI Prophylaxis: Indicated due to chronic acid suppression th erapy as an outpatient Telemetry: no Disposition: Home Code Status: Not on file Plan of care discussed with: Provider, RN, Patient SIGNATURE: Vickie Srivastava MD PATIENT NAME: Sally shannon DATE: May 26, 2020 TIME: 1:53 PM hemogram on 2020-05 Erythrocyte distribution 13.3 11.7-14.4 % Normal 05-26 [facility] width (RBC) [Ratio] System (57388) Comment: Performed By: #### CBC1 #### [facility] [address] [place], [place] [address] Hematocrit (Bld) [Volume 33.7 34.1-44.9 % Low 05-26 [facility] fraction] System (00 000) Comment: Performed By: #### CBC1 #### [facility] [address] [place], [place] [address] Hemoglobin (Bld) [Mass/Vol] 10.8 11.2-15.7 g/dL Low [facility] ( 000) Comment: Performed By: #### CBC1 #### [facility] [address] [place], [place] [address] MCH (RBC) [Entitic mass] 29.3 25.6-32.2 pg Normal 05-26 [facility] (00 000) Comment: Performed By: #### CBC1 #### [facility] [address] [place], [place] [address] MCHC (RBC) [Mass/Vol] 32.0 31.6-34.8 % Normal 05-26-[address] [facility] (47439) Comment: Performed By: #### CBC1 #### [facility] [address] [place], [place] [address] MCV (RBC) [Entitic vol] 91.3 79.4-94.[address] [facility] (00 000) Comment: Performed By: #### CBC1 #### [facility] [address] [place], [place] [address] Platelet mean volume (Bld) 10.8 9.4-12.[address] [facility] [Entitic vol] System (18288) Comment: Performed By: #### CBC1 #### [facility] [address] [place], [place] [address] Platelets (Bld) [#/Vol] 226 182-369 thou/cmm Normal 2019 [facility] (00 000) Comment: Performed By: #### CBC1 #### [facility] [address] [place], [place] [address] RBC (Bld) [#/Vol] 3.69 3.93-5.22 mil/cmm Low 05-26-[address] [facility] (63369) Comment: Performed By: #### CBC1 #### [facility] [address] [place], [place] [address] RDW SD 44.3 36.4-46.3 fl Normal 05-26-2020 [facility] (09041) Comment: Performed By: #### CBC1 #### [facility] [address] [place], [place] [address] WBC (Bld) [#/Vol] 9.78 3.98-10.04 thou/cmm Normal 05-26-2020 [facility] (00 000) Comment: Performed By: #### CBC1 #### [facility] [address] [place], [place] [address] coronavirus 2019 on 2020-05-26 COVID 19 Result QUALITY CONTROL CHECKER Negative CORNE Normal 05-26-2020 [facility] (94823) Comment: Result Comment: Negative for COVID19 (SARS CoV2) by PCR. This test was developed and its performance characteristics determined by [facility]'s [facility] [place]. This test has bee n authorized by [...] November 12, 2019. Performing Laboratory: [facility] [address] [place] [address] Performed By: #### [id number] ### # [facility] [address] [place], [place] [address] consult on CONSULT HNO ID: [id number] Normal 05-26-2020 [facility] Author: Joe Romero) [facility] Service: Gastroenterology ([id number]) Author Type: Physician Director Supply Chain Type: Consults Filed: 05/26/2020 11:22 AM Note [...] [facility] She states she was instructed [...] liver cyst 05/24/[address] [facility] 11/2009 and 04/2010 showe 4 mm increase in size . No pain. No elevated LFTs on 03/11/2010. - Calculus of kidney 05/17/[address] Nicolas: Hospitalized age 20, and again later -- no procedures so far ([facility], most, [address] [facility]) - Cancer (HCC) - Diverticulosis - [...] Approx. 3 cigarettes daily-1 pack every w [place] Substance Use Topics - Alcohol use: Yes [...] 26, 2020 TIME: 11:10 AM PAGER/CONTACT #: [phone] After 3PM please use on-call paging system basic metabolic panel on 2020-05-26 Anion gap [Moles/Vol] 9 9-18 mmol/L Normal 05-26-20 [facility] (99635) Comment: Performed By: #### BMP #### [facility] [address] [place], [place] [address] Calcium [Mass/Vol] 9.0 8.5-10.2 mg/dL Normal 05-26-2020 [facility] (10807) Comment: Performed By: #### BMP #### [facility] [address] [place], [place] [address] Chloride [Moles/Vol] 104 97-105 mmol/L Normal 0 [facility] (14329) Comment: Performed By: #### BMP #### [facility] [address] [place], [place] [address] CO2 Blood 25 22-30 mmol/L Normal 05-26-2020 [facility] (34844) Comment: Performed By: #### BMP #### [facility] [address] [place], [place] [address] Creatinine [Mass/Vol] 0.86 0.58-0.96 mg/dL Normal 05-26-[address] [facility] (00 000) Comment: Performed By: #### BMP #### [facility] [address] [place], [place] [address] Glucose [Mass/Vol] 87 74-99 mg/dL Normal 05-26-2020 [facility] (04943) Comment: Result Comment: The [place] Diabetes Association (ADA) provides guidance for cutoff [...] Standards of Medical Care in Diabetes 2016; [place] [employer]. Diabetes Care. 2016;39(Suppl 1). Performed By: #### BMP #### [place] [id number] Potassium [Moles/Vol] 3.5 3.7-5.1 mmol/L Low 05-26-[address] [facility] (56365) Comment: Performed By: #### BMP #### [address] [address] Sodium [Moles/Vol] 138 136-144 mmol/L Normal 05-26-2020 [facility] (53554) Comment: Performed By: #### BMP #### [facility] [address] [place], [place] [address] Urea nitrogen [Mass/Vol] 9 7-21 mg/dL Normal 05-26 [facility] (58183) Comment: Performed By: #### BMP #### [facility] [address] [place], [place] [address] urine drug screen o n 2020-05-25 Urine Alcohol <11 0-11 Normal 05-25-2020 [facility] (90636) Comment: Performed By: #### UDRG3 ### # [address] [address] Urine Amphetamine NEGATIVE NEGATIVE Normal 05-25-2020 [facility] (12536) Comment: Performed By: #### UDRG3 ### # [facility] [address] [place], [place] [address] Urine Barbiturates NEGATIVE NEGATIVE Normal 05-25-2020 [facility] (35168) Comment: Performed By: #### UDRG3 ### # [facility] [address] [place], [place] [address] Urine Benzodiazepine NEGATIVE NEGATIVE Normal 0 [facility] (00 000) Comment: Performed By: #### UDRG3 ### # [facility] [address] [place], [place] [address] Urine Cocaine Metab NEGATIVE NEGATIVE Normal 05-25-2020 [facility] (39390) Comment: Performed By: #### UDRG3 ### # [facility] [address] [place], [place] [address] Urine Opiates see below NEGATIVE Abnormal 05-25-2020 [facility] (80563) Comment: Result Comment: PRESUMPTIVE POSITIVE Performed By: #### UDRG3 ### # [facility] [address] [place], [place] [address] Urine Oxycodone NEGATIVE NEGATIVE Normal 05-25-2020 [facility] (28178) Comment: Performed By: #### UDRG3 ### # [facility] [address] [place], [place] [address] Urine PCP NEGATIVE NEGATIVE Normal 05-25-2020 [facility] (42993) Comment: Result Comment: Test Cutoff Unit Amphetamines 1000 ng/mL Barbiturates 200 ng/mL Benzodiazepines 200 ng/mL Cannabinoids 50 ng/mL Cocaine 300 ng/mL Opiates 300 ng/mL Oxycodone 100 ng/mL Phencyclidine 25 ng/mL Reference Range: Negative at cutoff threshold Immunoassay screen only. Assisted Living Executive Director ss reactivity with other substances can [...] the same specimen through the laboratory at ([phone]) if contact ed within 48 hours of initial 1. Substance Abuse and [facility] Services Administration (2012). Clini sam Drug Testing in Primary Care Technical Assistance Shailaa tiyaquelin Series 32. Department of Health and Human Services, U SA, p.10. Performed By: #### UDRG3 ### # [facility] [address] [place] [address] Urine THC NEGATIVE NEGATIVE Normal 05-25-2020 [facility] (67170) Comment: Performed By: #### UDRG3 ### # [facility] [address] [place] [address] urinalysis routine on 2020-05-25 RBC LM.HPF (Urine sed) 0.0-3 0.0-5.[address] [facility] [#/Area] System (00 000) Comment: Performed By: #### URIN2 ### # [facility] [address] [place] [address] Bacteria LM.HPF (Urine sed) NONE None Normal [facility] [#/Area] (90666) Comment: Performed By: #### URIN2 ### # [place] [address] Ep Cells Urine 21.5 0.0-5.0 /hpf High 05-25-[address] [facility] (33792) Comment: Performed By: #### URIN2 ### # [place] [address] Hyaline Cast 0.0 0.0-1.0 /lpf Normal 05-25-2020 [facility] (99198) Comment: Performed By: #### URIN2 ### # [facility] [address] [place] [address] WBC LM.HPF (Urine sed) 2.9 0.0-5.0 /hpf Normal 020 [facility] [#/Area] System (00 000) Comment: Performed By: #### URIN2 ### # [place] [address] Appearance (U) CLOUDY Normal 05-25-[address] [facility] (85175) Comment: Performed By: #### URIN2 ### # [facility] [address] [place], [place] [address] Bilirubin (U) NEGATIVE Negative mg/dL Normal 05-25-2020 [facility] [Mass/Vol] System (0 0000) Comment: Performed By: #### URIN2 ### # [facility] [address] [place], [place] [address] Color (U) YELLOW Normal 05-25-2020 [facility] (89389) Comment: Performed By: #### URIN2 ### # [facility] [address] [place], [place] [address] Glucose Ql (U) NEGATIVE Negative Normal 05-25-[address] [facility] (20393) Comment: Performed By: #### URIN2 ### # [facility] [address] [place], [place] [address] Hemoglobin,Urine NEGATIVE Negative Normal 05-25-2020 [facility] (58553) Comment: Performed By: #### URIN2 ### # [facility] [address] [place], [place] [address] Ketone Urine NEGATIVE Negative Normal 05-25-2020 [facility] (94680) Comment: Performed By: #### URIN2 ### # [facility] [address] [place], [place] [address] Leukocytes Esterase NEGATIVE Negative Normal 05-25-2020 [facility] (98423) Comment: Performed By: #### URIN2 ### # [facility] [address] [place], [place] [address] Nitrites Urine NEGATIVE Negative Normal 05-25-2020 [facility] (12338) Comment: Performed By: #### URIN2 ### # [facility] [address] [place], [place] [address] pH (U) 5.5 5.0-8.0 [pH] Normal 05-25-2020 [facility] (50004) Comment: Performed By: #### URIN2 ### # [facility] [address] [place], [place] [address] Protein (U) [Mass/Vol] NEGATIVE Negative mg/dL Normal 020 [facility] (00 000) Comment: Performed By: #### URIN2 ### # [facility] [address] [place], [place] [address] Specific [place], Ur 1.024 1.005-1.[address] [facility] (00 000) Comment: Performed By: #### URIN2 ### # [facility] [address] [place], [place] [address] Urobilinogen,Ur 0.2 0.2-1.0 EU/dL Normal 05-25-2020 [facility] (06385) Comment: Performed By: #### URIN2 ### # [facility] [address] [place], [place] [address] nursing prog on NURSING PROG HNO ID: [id number] Normal 05-25-20 [facility] Author: Eleanor PickardRn) LUCIUS Parrish [place] ([id number]) Service: ? Author Type: Registered Nurse Type: [...] dilaudid and fentanyl work best for her. [facility] med notified one time 4mg morphine ordered. Pt states it took her pain from 10 to an 8 . 2345: pt requesting something more for pain at this time. Re ceived oxycodone order Q6 PRN. lipase blood on Lipase Blood 25 16-61 U/L Normal 05-25-2020 [facility] (33483) Comment: Performed By: #### LIP #### [facility] [address] [place], [place] [address] hosp on 2020-05-25 HOSP Patient:Sally Vargas Normal 05-15 [place] MRN: General Height:5' 1(1.549 m) Medical Weight:200 lb 6.4 oz (90.901 kg) Center Outpatient Medications as of 05/28/20: (25136) hyoscyamine (LEVSIN) 0.125 mg tablet sucralfate (CARAFATE) [...] 32.2 % 05/28/2020 44.9 34.1 Progress Notes ([facility]): Pierce Schwartz Ma 05/25/2020 4:24 PM [...] since Thursday night. Patient was seen at [place] ED on Thursday night where she was given fluids, told her labs looked fine and was discharged home. Sameer cheney follows with Dr. Winn for GI as she has a 9 cm cyst in her liver and history of pancreatitis . Patient is scheduled for endoscopy and ultrasound on . She states that Dr. Winn told her to come to [facility] ED for specific type of [...] v Family history: of suicide, attempts, or [place] 1 psychiatri c disorders requiring hospitalization v Precipitants/Stressors/Interpersonal: triggering events le ading to humiliation, shame or despair (e.g; loss of relationship, fi nancial or Health status-real or antici pated). Ongoing medical illness (zohreh. 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 Intoxication. Family turmoil/chaos. History of Physical or sexual abuse. Social isolation. v Change in treatment: discharge from psychiatric hospital, provider or treatment change v Access to firearms 2.??? PROTECTIVE FACTORS pro tective factors, even if present, may not counteract significant acute risk v Internal: ability to cope with stress, jainism beliefs, frustration tolerance v External: responsibility to [...] liver cyst 05/24/[address] [facility] 11/2009 and 04/2010 showe 4 mm increase in size . No pain. No elevated LFTs on 03/11/2010. - Calculus of kidney 05/17/[address] Nicolas: Hospitalized age 20, a nd again later -- no procedures so far ([facility], [facility], [address] [facility]) - Cancer (HCC) - Diverticulosis - [...] removed - TOTAL ABDOM HYSTERECTOMY 08/31/06 Hysterectomy, [facility] FAMILY HISTORY Problem Relation Age of Onset [...] Approx. 3 cigarettes daily-1 pack every w [place] Substance and Sexual Activity - Alcohol use: [...] PM: You may reach the House Medicine digital marketing intern currently assigned to this patien t by finding their pager number on the treatment team (they will be assigned as the digital marketing intern or resident). It is the last four digits in the phone num alyson beginning with ([phone]). We encourage the use of too.me Secure Chat. PCP: Marcelino Mejia MD Admitting [...] liver cyst 05/24/[address] [facility] 11/2009 and 04/2010 showe 4 mm increase in size . No pain. No elevated LFTs on 03/11/2010. - Calculus of kidney 05/17/[address] Nicolas: Hospitalized age 20, a nd again later -- no procedures so far ([facility], [facility], [address] [facility]) - Cancer (HCC) - Diverticulosis - [...] removed - TOTAL ABDOM HYSTERECTOMY 08/31/06 Hysterectomy, [facility] FAMILY HISTORY Problem Relation Age of [...] Approx. 3 cigarettes daily-1 pack every w [place] Substance Use Topics - Alcohol use: Yes [...] liver cyst 05/24/[address] [facility] 11/2009 and 04/2010 showe 4 mm increase in size . No pain. No elevated LFTs on 03/11/2010. - Calculus of kidney 05/17/[address] Nicolas: Hospitalized age 20, a nd again later -- no procedures so far ([facility], [facility], [address] [facility]) - Cancer (HCC) - Diverticulosis - [...] removed - TOTAL ABDOM HYSTERECTOMY 08/31/06 Hysterectomy, [facility] FAMILY HISTORY Problem Relation Age of [...] Approx. 3 cigarettes daily-1 pack every w [place] Substance Use Topics - Alcohol use: Yes [...] 26, 2020 TIME: 11:10 AM PAGER/CONTACT #: [phone] After 3PM please use on-call paging system Vickie Srivastava MD 05/26/2020 2:11 PM Attested Attestation signed by Oh Arreaga at 05/26/2020 2:23 PM Attending Note I personally saw and examined the patient on 05/26/20. I rev iewed the resident's note. I agree with the resident's assessment and plan unless otherwise noted. Signature: Oh Arreaga DO Date: 05/26/2020 Time: 2:23 PM Pager: [phone] HOUSE MEDICINE SERVICE PROGRESS NOTE SERVICE DATE: May 26, 2020 SERVICE TIME: 1:53 PM NIGHT AND WEEKEND COVERAGE: From 6 AM to 5 PM: You may reach the House Medicine digital marketing intern currently assigned to this patien t by finding their pager number on the treatment team (they will be assigned as the digital marketing intern or resident). It is the last four digits in the phone num alyson beginning with ([phone]). We encourage the use of too.me Secure Chat. SUBJECTIVE HPI: 39 year old [...] 27, 2020 TIME: 1:15 PM PAGER/CONTACT #: Industrial Technology Education Teacher Pager Vickie Srivastava MD 05/27/2020 4:19 PM [...] PM: You may reach the House Medicine digital marketing intern currently assigned to this patien t by finding their pager number on the treatment team (they will be assigned as the digital marketing intern or resident). It is the last four digits in the phone num alyson beginning with ([phone]). We encourage the use of too.me Secure Chat. SUBJECTIVE HPI: 39 year old [...] DAILY 05/25/201935 -- 05/25/201944 pneumatic compression stockings (nj,id) VTE Prophylaxis: VTE prophylaxis appropriate GI Prophylaxis: [...] Note Patient Name: Sally Vargas Patient Location: [id number]- Attempted to draw AM labs. Was unsuccessful x 2 attempts. This note was completed by: LUCIUS Conley MD 05/28/2020 8:57 AM Incomplete HOUSE MEDICINE SERVICE PROGRESS NOTE SERVICE DATE: May 28, 2020 SERVICE TIME: 1:53 PM NIGHT AND WEEKEND COVERAGE: From 6 AM to 5 PM: You may reach the House Medicine digital marketing intern currently assigned to this patien t by finding their pager number on the treatment team (they will be assigned as the digital marketing intern or resident). It is the last four digits in the phone num alyson beginning with ([phone]). We encourage the use of too.me Secure Chat. SUBJECTIVE HPI: 39 year old [...] delete will not show in completed note) :[id number] } Intractable nausea and vomiting Intractable nausea [...] delete will not show in completed note) :[id number] } Medication and Non-Pharmacologic VTE Prophylaxis/Anticoagula nts Anticoagulant AND Antiplatelet Medications (From admission, onward) Start Dose Route Frequency Ordered Stop 05/25/201999 enoxaparin 40 mg injection (LOVENOX) (Me dical Risk Categories) 40 mg SUBCUTANEOUS DAILY 05/25/201935 -- 05/25/201944 pneumatic compression stockings (nj,oh) VTE Prophylaxis: VTE prophylaxis appropriate GI Prophylaxis: [...] mg x 3 Quetiapine 100 mg daily [place] prescription history Shows occasional use of [...] Approx. 3 cigarettes daily-1 pack every w [place] Substance Use Topics - Alcohol use: Yes [...] liver cyst 05/24/[address] [facility] 11/2009 and 04/2010 showe 4 mm increase in size . No pain. No elevated LFTs on 03/11/2010. - Calculus of kidney 05/17/[address] Nicolas: Hospitalized age 20, a nd again later -- no procedures so far ([facility], [facility], [address] [facility]) - Cancer (HCC) - Diverticulosis - [...] removed - TOTAL ABDOM HYSTERECTOMY 08/31/06 Hysterectomy, [facility] FAMILY HISTORY Problem Relation Age of [...] Approx. 3 cigarettes daily-1 pack every w [place] Substance Use Topics - Alcohol use: Yes [...] May 28, 2020 TIME: 12:15 PM CSN: [id number] history physical on 2020-05-25 HISTORY HNO ID: [id number] Normal 05-25-2020 [place] PHYSICAL Author: Maggi Flores MD General Service: Hospital Medicine Medical Author Type: Resident Center Type: [facility] ([id number]) Filed: 05/25/2020 5:42 PM Note Text: Attestation [...] PM: You may reach the House Medicine digital marketing intern currently assigned to this patient by findin g their pager number on the treatment team (they will be assigned as the i ntern or resident). It is the last four digits in the phone number be ginning with ([phone]). We encourage the use of too.me Secure Chat. PCP: Marcelino Mejia MD Admitting [...] liver cyst 05/24/[address] [facility] 11/2009 and 04/2010 showe 4 mm increase in size . No pain. No elevated LFTs on 03/11/2010. - Calculus of kidney 05/17/[address] Nicolas: Hospitalized age 20, and again later -- no procedures so far ([facility], [facility], [address] [facility]) - Cancer (HCC) - Diverticulosis - [...] removed - TOTAL ABDOM HYSTERECTOMY 08/31/06 Hysterectomy, [facility] FAMILY HISTORY Problem Relation Age of [...] Approx. 3 cigarettes daily-1 pack every w [place] Substance Use Topics - Alcohol use: Yes [...] Immature Grans 0.09 0.00-0.05 thou/cmm High 05-25-2020 [facility] (00 000) Comment: Performed By: #### CBCD1 ### # [address] [address] Abs Neut (ANC) 3.14 1.56-6.13 thou/cmm Normal 05-25-[address] [facility] (85968) Comment: Performed By: #### CBCD1 ### # [address] [address] Abs. Baso 0.06 0.01-0.08 thou/cmm Normal 05-25-2020 [facility] (41249) Comment: Result Comment: Smear scanne d; tech agrees with automated differential Performed By: #### CBCD1 ### # [address] [address] Abs. [place] 0.50 0.27-0.70 thou/cmm Normal 05-25-2020 [facility] (65575) Comment: Performed By: #### CBCD1 ### # [address] [address] Basophils/100 WBC (Bld) 0.7 % Normal 2019 [facility] (45737) Comment: Performed By: #### CBCD1 ### # [address] [address] Eosinophils (Bld) 0.30 0.00-0.31 thou/cmm Normal 05-25-2020 [facility] [#/Vol[facility] (54896) Comment: Performed By: #### CBCD1 ### # [address] [address] Eosinophils/100 WBC (Bld) 3.6 % Normal 05-15 [facility] (55658) Comment: Performed By: #### CBCD1 ### # [facility] [address] [place], [place] [address] Immature Grans 1.10 % Normal 05-25-2020 [facility]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 IV DISCONTINUE [5570895] Order #: [id number]: 1 FUTURE INSERT IV ([place]) [2118372] Order #: [id number]: 1 EGD [9235086] Order #: [id number] FUTURE COLONOSCOPY - DIAGNOSTIC [3590798] Order #: [id number] FUTUR E CELIAC DISEASE PANEL [2130950] Order #: [id number] FUTURE IGG SUBCLASSES BLD [SQIGGSUB] Order #: [id number] FUTURE US ABD RT UPPER QUADRANT [6918805] Order #: [id number] FUTUR E metroNIDAZOLE (FLAGYL) 500 mg tabletTake [...] AND PRE-OPERATIVE COVID [SQPOCOVD] Order #: [id number] FUTURE Prescriptions as of 04/26/2020 Sig: DIPHENHYDRAMINE [...] take a taxi or bus, or leave [facility] ALONE. If you do not have a responsible logging truck driver (famil y member or friend) [...] the prescription bowel preparation solution at your [facility] pharmacy or drugstore pharmacy. 08/2019 [...] on 2020-04-26 CNCO Letter Text Normal 04-26-2020 [facility] ([id number]) cnpn on 2020-04-19 CNPN Telephone (FAMWS) Normal 04-19-2020 [place] [facility] SALLY VARGAS ([id number]) 1980 [facility] Date Time Provider Department (30755) 04/19/20 MARCELINO MEJIA FAMPWS During your visit today, we recorded the following informati on about you: Christopher Carcamo RN 04/19/2020 10:49 AM Signed Faxed GI referral and demographics to [facility], per patient request. . Allergies As of Date: 04/19/2020 Noted Allergy Reaction PENICILLINS 12/07/2009 2 - Rash ASA (SALICYLATES) 01/27/2011 14 - Other: See Comments Comments: ulcers CONTRAST DYE (IODINE) 05/17/2008 12 - Shortness of Breath FLAGYL (METRONIDAZOLE HCL) 03/11/2010 12 - Shortness of Capac th IBUPROFEN 06/18/2016 8 - GI Upset PREDNISONE 06/18/2016 14 - Other: See Comments Comments: makes agitated and mean Date Reviewed: 02/23/2020 Reviewed by: Marcelino Mejia - Fully Assessed Reason for Visit: Faxed to [facility] [Other] Prescriptions as of [...] Status:Closed by Christopher CARCAMO RN on 04/19/20 [facility]) Normal 04-18-2020 [place] SALLY Martinez ([id number]) 1980 [place] Date Time Provider Department ([id number]) 04/18/20 [facility] During your visit today, we recorded the following informati on about you: Yvette Taylor RN 04/18/2020 2:01 PM Signed Pt called, verified by name and birthdate. Pt wants to know if she can see a GI doctor. Reviewed pt's chart and she has a GI con sult with GI group in [place]. Pt verbalized understanding, states she will call to agustin Taylor RN Allergies As of Date: 04/18/2020 Noted Allergy Reaction PENICILLINS 12/07/2009 2 - Rash ASA (SALICYLATES) 01/27/2011 14 - Other: See Comments Comments: ulcers CONTRAST DYE (IODINE) 05/17/2008 12 - Shortness of Breath FLAGYL (METRONIDAZOLE HCL) 03/11/2010 12 - Shortness of Capac th IBUPROFEN 06/18/2016 8 - GI Upset PREDNISONE 06/18/2016 14 - Other: See Comments Comments: makes agitated and mean Date Reviewed: 02/23/2020 Reviewed by: Marcelino Mejia - Fully Assessed Reason for Visit: Patient Question [2417] Prescriptions as of 04/18/2020 Sig: TOPIRAMATE 50 [...] TAYLOR RN on 04/18/20 cnpn on 2020-04-16 [facility] (F[facility]) Normal 04-16-2020 [place] SALLY Martinez ([id number]) 1980 [place] Date Time Provider Department ([id number]) 04/16/20 ROOSEVELTMARCELINO SUAREZ During your visit today, we recorded the following informati on about you: Edwina Tatum DAVID 04/16/2020 11:38 AM Signed Pt calls to report she went to [facility] ER 04/12. Pt reports she went [...] review and advise. Edwina Dollllow DAVID Edwina [place] LPN 04/17/2020 10:28 AM Signed Pt calls [...] (METRONIDAZOLE HCL) 03/11/2010 12 - Shortness of Capac th IBUPROFEN 06/18/2016 8 - GI Upset [...] SANDERS MA on 04/17/20 cnpn on 2020-03-29 [facility]) Normal 03-29-2020 [facility] SALLY VARGAS ([id number]) 1980 [facility] Date Time Provider Department ([id number]) 03/29/20 MARCELINO MEJIA [facility] During your visit today, we recorded the following informati on about you: Melanie Swenson SOFTWARE ENGINEER WEB APPLICATIONS 03/29/2020 10:06 AM Signed Patient calling crying constantly, so congested from a ll the crying, can not get appt with [facility] will not take her insurance. [facility] will not take any new patients [...] AM Signed 1. Can we confirm that neurodiagnostic institute at [facility] doesn't take her insurance. If they don't take her insurance then we ca n see if can get her in with Dr. Church since he is back in [facility] now. 2. Find out how long [...] Signed Patient returned call; crying. Message from [employer] ider given. Patient says they don't do [...] she can't take ibuprof en). TC to [facility] and had to leave message for them to return call regarding if they accept patient's insurance. Instructed the m to give patient's name when they return the call so we can document. Lorenzo Vu 03/29/2020 12:49 PM Signed Giulia / [facility] returned call stating the y do not take [place]; provider is not credentialed with them yet. [...] muscle relaxer for her migraines. Pharmacy is [facility]. Please review and advise. LUCIUS Solis [...] on 2020-03-28 CNPN Telephone (RAMA) Normal 03-28-2020 [facility] SALLY VARGAS ([id number]) 1980 [facility] Date Time Provider Department ([id number]) 03/28/20 [facility] During your visit today, we recorded the following informati on about you: Christohper Carcamo RN 03/28/2020 6:01 PM Signed Patient [...] on 2020-03 OBSOLETE Refill (FAMPWS) Normal 03-27-2020 [facility] SALLY VARGAS ([id number]) 1980 [facility] Time Provider Department ([id number]) 03/27/20 MARCELINO MEJIAWS During your visit today, [...] on 2020-03-27 CNPN Telephone (FAMWS) Normal 03-27-2020 [facility] SALLY VARGAS ([id number]) 1980 [facility] Date Time Provider Department ([id number]) 03/27/20 MARCELINO MEJIA [facility] During your visit today, we recorded the following informati on about you: Yvette Taylor RN 03/27/2020 10:59 AM Signed Pt called, verified by name and birthdate. Pt states s he went to [facility] ER last night for a migraine and had a CT scan. Pt wants PCP to review ER records. Pt wants referral to neurology. Order pended. When signed pleas e fax to [place] [facility] at [facility] per pt request Yvette Murphy Ma 03/27/2020 12:20 PM Signed ER reports on PCP's desk to review. Jessica Zhou, RN, RN 03/27/2020 1:37 PM Signed Pt calls, asking what the diagnosis was on the ER note. Pt states she was told air bubble, tumor States Imitrex is not working. Has already taken 2 today. Wa iting on [place] [facility] to call her back Pt asking [...] placed and can be faxed to [facility]. Let patient know th e CT [...] referred to. See needs to contact her animal care giver to get the help see paulette dick as instructed on 03/22/2020, otherwise our hands are tied. Jessica Murphy Ma 03/27/2020 2:29 PM Signed Pt notified and voiced understanding. Referral and Dem o faxed to [facility]. Jessica Murphy Ma Allergies As of Date: 03/27/2020 Noted Allergy Reaction PENICILLINS 12/07/2009 2 - Rash ASA (SALICYLATES) 01/27/2011 14 - Other: See Comments Comments: ulcers CONTRAST DYE (IODINE) 05/17/2008 12 - Shortness of Breath FLAGYL (METRONIDAZOLE HCL) 03/11/2010 12 - Shortness of Capac th IBUPROFEN 06/18/2016 8 - GI Upset PREDNISONE 06/18/2016 14 - Other: See Comments Comments: makes agitated and mean Date Reviewed: 02/23/2020 Reviewed by: Marcelino Mejia - Fully Assessed Reason for Visit: Patient Update [1234] Primary Visit Diagnosis:Migraine without aura an d without status migrainosus, not intractable [G43.009] Order(s):CONSULT TO NEUROLOGY [9065] Order #: [id number]: 1 FUTURE Prescriptions as of 03/27/2020 Sig: [...] 03/27/20 progress on 2020-03 PROGRESS HNO ID: [id number] Normal 03-22-2020 [facility] Author: Isabel (Maya) Hugo Lara ([id number]) Service: ? Author Type: Physician Director Supply Chain Type: Progress Notes Filed: 03/22/2020 9:50 AM [...] to rides. States she couldn't go to [place] for her cardiac testing but continues to have pre syncopal episodes. Has not been able to go see card iologist either. She is specifically asking about going on disability as well . HISTORY REVIEWED (electronic chart updated): - medical history - medications - allergies REVIEW OF SYSTEMS: As noted in HPI PHYSICAL EXAMINATION: [facility] 08/10/2006 Any vital signs collected today were [...] with specialists. contacted and will provider her [facility] recommendations for ride assistance. ISABEL ARIAS PA-C Total appointment time on phone with patient = 11-20 minutes morena on 2020-03-22 CNPN Telephone (FAMPWS) Normal 03-22-2020 [facility] SALLY VARGAS ([id number]) 1980 [facility] Date Time Provider Department ([id number]) 03/22/20 [facility] ARIAS[facility] During your visit today, we recorded the following informati on about you: ISABEL ARIAS PA-C 03/22/2020 9:43 AM Signed Please let patient know that this is info I have received from in regards to rides: The last I knew, most of them were back up and running. I do know that [employer] [facility] has been continuing with their ride assistance and are taking people to their appts. I would sa y they need to check now with insurance to see if able to set up ride. The patient could also see if they can request a animal care giver through their Medicaid Managed Care p maria esther. I have patients that have Medicaid plan and their care managers a re able to assist them setting up services. Having a animal care giver through insu eve is great because they [...] has a care ma nagelizabeth through medicaid [place] but she only calls her about once a year. She states she will have to make the MRI and CT appt n ext month when she has rides again. I advised her that she contact [place] and request more help from her animal care giver. Allergies As of Date: 03/22/2020 Noted Allergy [...] ISABEL WARE on 03/22/20 cnpn on 2020-03-08 [facility] (FAMWS) Normal 03-08-2020 [facility] ABDIFATAHSALLY TORRES ([id number]) 1980 [facility] Date Time Provider Department ([id number]) 03/08/20 MARCELINO MEJIA During your visit today, [...] transfer to scheduling and while waiting for applied psychology chair which was awhile, pt dropped call. Attempted [...] (METRONIDAZOLE HCL) 03/11/2010 12 - Shortness of Capac th IBUPROFEN 06/18/2016 8 - GI Upset [...] Status:Closed by BRANDEN SANDERS MA on 03/09/20 [facility] 2020-[facility] Normal 03-05-2020 [facility] [facility] SALLY VARGAS ([id number]) 1980 [facility] Date Time Provider Department ([id number]) 03/05/20 [facility] During your visit today, we recorded the following informati on about you: Melanie Swenson SOFTWARE ENGINEER WEB APPLICATIONS 03/05/2020 2:16 PM Signed Patient calling would like applied psychology chair to call her back to set up [...] 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 vic stated she is to see Dr. Joseph [place] in [place] for Pain Management. Verified that we have [facility] and MRI schedul ed here on [...] on 03/06/20 CNPN Telephone (FAMPWS) Normal 03-05-2020 [place] SALLY Martinez ([id number]) 1980 [place] Date Time Provider Department ([id number]) 03/05/20 MARCELINO MEJIA During your visit today, we recorded the following informati on about you: Sallie Benitez SOFTWARE ENGINEER WEB APPLICATIONS 03/05/2020 1:58 PM Signed Patient is scheduling [...] to call the office. Sarai Diegoh Debby SOFTWARE ENGINEER WEB APPLICATIONS 03/05/2020 3:51 PM Signed Patient returned call [...] (METRONIDAZOLE HCL) 03/11/2010 12 - Shortness of Capac th IBUPROFEN 06/18/2016 8 - GI Upset [...] on 2020-02-28 CNPN Telephone (FAMPWS) Normal 02-28-2020 [place] SALLY Martinez ([id number]) 1980 [place] Date Time Provider Department ([id number]) 02/28/20 MARCELINO MEJIA During your visit today, we recorded the following informati on about you: Janneth Zhou, RN, RN 02/28/2020 10:41 AM Signed Pt calls for ER F/U appt. States she was at [facility] ER on 02/24 after reportidly passing out. [...] (METRONIDAZOLE HCL) 03/11/2010 12 - Shortness of Capac th IBUPROFEN 06/18/2016 8 - GI Upset [...] CHEST 1 VIEW ORIGINAL Normal 02-25-2020 [facility] XR [facility]ST [facility] ([id number]) CLINICAL STATEMENT: Chest pain COMPARISON: 04/06/2006 FINDINGS: [...] Troponin I.cardiac <0.020 0.000-0.040 ng/mL Normal 0 [facility] [Mass/Vol] [facility] (91332) Comment: Result Comment: Troponin I r eference range: 0.00-0.040 ng/mL Negative an d non-diagnostic. >0.040 ng/mL Consistent with cardiac damage, increased clinical risk and possibility of myocardial in farction. Serial measurements, a rise & fall in test results, clinical histo ry, appropriate symptoms and/or ECG changes may help assess possibility of LA. *Other non-acute coronary sy ndrome conditions such as CHF, myoc arditis, pulmonary emboli, sepsis and cardiac surgery could result in myoc ardial damage and increased troponi n levels. Performed By: #### CBC, ADIF F, ANEU, BMP, GFR #### [address] [address] mg on 2020-02-25 Magnesium [Mass/Vol] 2.0 1.8-2.4 mg/dL Normal 0 [facility] ([place]) (0000 0) Comment: Performed By: #### CBC, ADIF F, ANEU, BMP, GFR #### [address] [address] lip on 2020-02-25 Lipase Level 562 73-393 U/L High 02-25-2020 [facility] ([place]) (03935) Comment: Performed By: #### CBC, ADIF F, ANEU, BMP, GFR #### [address] [address] cmp on 2020-02-25 Albumin [Mass/Vol] 4.1 3.5-5.0 G/dL Normal 02-25-2020 [facility] ([place]) (64191) Comment: Performed By: #### CBC, ADIF F, ANEU, BMP, GFR #### [address] [address] Albumin/Globulin [Mass 1.2 1.1-2.5 ratio Normal 020 [facility]) (20359) Comment: Performed By: #### CBC, ADIF F, ANEU, BMP, GFR #### [address] [address] ALP [Catalytic activity/Vol] 98 40-135 U/L Normal 0 02-25-2020 [facility] ([place]) (0000 0) Comment: Performed By: #### CBC, ADIF F, ANEU, BMP, GFR #### [place] [id number] ALT [Catalytic activity/Vol] 30 10-35 U/L Normal 0 02-25-2020 [facility] ([place]) (0000 0) Comment: Performed By: #### CBC, ADIF F, ANEU, BMP, GFR #### [place] [id number] AST [Catalytic activity/Vol] 15 10-40 U/L Normal 0 02-25-2020 [facility] ([place]) (0000 0) Comment: Performed By: #### CBC, ADIF F, ANEU, BMP, GFR #### [address] [address] Bili Total 0.4 0.2-1.0 mg/dL Normal 02-25-2020 [facility]) (52432) Comment: Result Comment: Use of this assay is not recommended for patients undergoing treatment with eltrombopag d ue to the potential for falsely elevated results. Performed By: #### CBC, ADIF F, ANEU, BMP, GFR #### [place] [id number] Calcium [Mass/Vol] 8.9 8.4-10.2 mg/dL Normal 02-25-2020 [facility] ([place]) (0000 0) Comment: Performed By: #### CBC, ADIF F, ANEU, BMP, GFR #### [address] [address] Chloride [Moles/Vol] 104 98-107 mmol/L Normal 0 [facility] ([place]) (0000 0) Comment: Performed By: #### CBC, ADIF F, ANEU, BMP, GFR #### [address] [address] CO2 [Moles/Vol] 28 22-29 mmol/L Normal 02-25-2020 [facility] ([place]) (32260) Comment: Performed By: #### CBC, ADIF F, ANEU, BMP, GFR #### [address] [address] Creatinine [Mass/Vol] 1.01 0.55-1.02 mg/dL Normal 02-25-20 [facility] ([place]) (02410) Comment: Performed By: #### CBC, ADIF F, ANEU, BMP, GFR #### [address] [address] Electrolyte Balance 9.0 mEq/L Normal 02-25-2020 [facility] ([place]) (03266) Comment: Performed By: #### CBC, ADIF F, ANEU, BMP, GFR #### [address] [address] Globulin (S) [Mass/Vol] 3.4 G/dL Normal 2019 [facility] ([place]) (35188) Comment: Performed By: #### CBC, ADIF F, ANEU, BMP, GFR #### [address] [address] Glucose [Mass/Vol] 112 70-105 mg/dL High 02-25-2020 [facility] ([place]) (24293) Comment: Performed By: #### CBC, ADIF F, ANEU, BMP, GFR #### [address] [address] Potassium [Moles/Vol] 3.7 3.5-5.1 mmol/L Normal 02-25-20 [facility] ([place]) (0000 0) Comment: Performed By: #### CBC, ADIF F, ANEU, BMP, GFR #### [address] [address] Protein [Mass/Vol] 7.5 6.4-8.2 G/dL Normal 02-25-2020 [facility] ([place]) (54654) Comment: Performed By: #### CBC, ADIF F, ANEU, BMP, GFR #### [address] [address] Sodium [Moles/Vol] 141 136-145 mmol/L Normal 02-25-2020 [facility] ([place]) (0000 0) Comment: Performed By: #### CBC, ADIF F, ANEU, BMP, GFR #### [place] [id number] Urea nitrogen [Mass/Vol] 21 7-18 mg/dL High 02-24 [facility] ([place]) (61752) Comment: Performed By: #### CBC, ADIF F, ANEU, BMP, GFR #### [place] [id number] Urea nitrogen/Creatinine [Mass 21 7-27 ratio Normal 02-25-2020 [facility]] [facility] ([place]) (80202) Comment: Performed By: #### CBC, ADIF F, ANEU, BMP, GFR #### [address] [address] cbc on 2020-02-25 Erythrocyte distribution 14.9 11.5-14.5 % High 02-24 [facility] width (RBC) [Ratio] ([place]) (97000) Comment: Performed By: #### CBC, ADIF F, ANEU, BMP, GFR #### [address] [address] Hematocrit (Bld) [Volume 35.9 37.0-47.0 % Low 02-24 [facility] fraction] ([place]) (0000 0) Comment: Performed By: #### CBC, ADIF F, ANEU, BMP, GFR #### [place] [id number] Hemoglobin (Bld) 11.8 12.0-16.0 G/dL Low 02-25-2020 [facility] [Mass/Vol] ([place]) (000 00) Comment: Performed By: #### CBC, ADIF F, ANEU, BMP, GFR #### [address] [address] MCH (RBC) [Entitic mass] 29.5 27.0-31.2 pg Normal 02-24 [facility] ([place]) (0000 0) Comment: Performed By: #### CBC, ADIF F, ANEU, BMP, GFR #### [address] [address] MCHC (RBC) [Mass/Vol] 32.9 33.0-37.0 G/dL Low 02-25-20 20 [facility] ([place]) (0000 0) Comment: Performed By: #### CBC, ADIF F, ANEU, BMP, GFR #### [address] [address] MCV (RBC) [Entitic vol] 89.9 80.0-94.0 fL Normal 2019 [facility] ([place]) (0000 0) Comment: Performed By: #### CBC, ADIF F, ANEU, BMP, GFR #### [place] [id number] Platelet mean volume 9.2 7.4-10.4 fL Normal 0 [facility] (Bld) [Entitic vol] ([place]) (62579) Comment: Performed By: #### CBC, ADIF F, ANEU, BMP, GFR #### [address] [address] Platelets (Bld) [#/Vol] 265 130-400 10 3/mcL Normal 2019 [facility] ([place]) (05496) Comment: Performed By: #### CBC, ADIF F, ANEU, BMP, GFR #### [address] [address] RBC (Bld) [#/Vol] 4.00 4.20-5.40 10 6/mcL Low 02-25-2020 [facility] ([place]) (0000 0) Comment: Performed By: #### CBC, ADIF F, ANEU, BMP, GFR #### [address] [address] WBC (Bld) [#/Vol] 9.90 4.60-10.80 10 3/mcL Normal 02-25-2020 [facility] ([place]) (10909) Comment: Performed By: #### CBC, ADIF F, ANEU, BMP, GFR #### [address] [address] .neuabs on Neutrophils (Bld) 6.00 2.85-6.16 10 3/mcL Normal 02-25-2020 [facility] [#/Vol] [facility] ([place]) (20902) Comment: Performed By: #### CBC, ADIF F, ANEU, BMP, GFR #### [address] [address] .gfr on 2020-02-25 GFR Non- 61 ml/min/1.73sqm Normal 02-25-2020 [facility] ([place]) (73311) Comment: Result Comment: GFR Population mean for Afri can Chilean, Non- Americans Ages 20-29 = 116 mL/min/1.73 [...] CBC, ADIF F, ANEU, BMP, GFR #### [address] [address] GFR 74 ml/min/1.73sqm Normal 02-12 [facility] ([place]) (0000 0) Comment: Result Comment: GFR Population mean for Afri can Chilean, Non- Americans Ages 20-29 = 116 mL/min/1.73 [...] CBC, ADIF F, ANEU, BMP, GFR #### [address] [address] .auto diff on 02-24 Am[place] (P) [Mass/Vol] 0.60 0.15-1.00 10 3/mcL Normal 02-24- 020 [facility] ([place]) (13250) Comment: Performed By: #### CBC, ADIF F, ANEU, BMP, GFR #### [address] [address] Basophils (Bld) 0.00 0.00-0.19 10 3/mcL Normal 02-25-2020 [facility] [#/Vol] [facility] ([place]) (88967) Comment: Performed By: #### CBC, ADIF F, ANEU, BMP, GFR #### [address] [address] Basophils/100 WBC (Bld) 0.2 0.0-2.5 % Normal 2019 [facility] ([place]) (0000 0) Comment: Performed By: #### CBC, ADIF F, ANEU, BMP, GFR #### [address] [address] Eosinophils (Bld) 0.30 0.00-0.40 10 3/[facility] Normal 02-25-2020 [facility] [#/Vol] [facility] ([place]) (62312) Comment: Performed By: #### CBC, ADIF F, ANEU, BMP, GFR #### [address] [address] Eosinophils/100 WBC (Bld) 3.5 0.0-7.0 % Normal 02-12 [facility] ([place]) (0000 0) Comment: Performed By: #### CBC, ADIF F, ANEU, BMP, GFR #### [address] [address] Lymphocytes (Bld) 2.90 0.77-3.85 10 3/mcL Normal 02-25-2020 [facility] [#/Vol] [facility] ([place]) (82188) Comment: Performed By: #### CBC, ADIF F, ANEU, BMP, GFR #### [facility] [address] [place] [address] Lymphocytes/100 WBC (Bld) 28.9 10.0-50.0 % Normal 02-12 [facility] ([place]) (64377) Comment: Performed By: #### CBC, ADIF F, ANEU, BMP, GFR #### [place] [id number] [place] [address] Monocytes/100 WBC (Bld) 6.3 1.7-13.0 % Normal 2019 [facility] ([place]) (0000 0) Comment: Performed By: #### CBC, ADIF F, ANEU, BMP, GFR #### [place] [id number] [address] [place] [address] Neutrophils/100 WBC (Bld) 61.1 37.0-80.0 % Normal 02-12 [facility] ([place]) (86929) Comment: Performed By: #### CBC, ADIF F, ANEU, BMP, GFR #### [place] [id number] [address] [place] [address] progress on 2020-02 PROGRESS HNO ID: [id number] Normal 02-23-2020 [facility] Author: Marcelino Mejia [place] ([id number]) Service: ? Author Type: Physician Type: Progress Notes Filed: 02/23/2020 12:21 PM Note Text: This Team Access Model visit is a phone encounter. It requir ed patient-provider interaction for the medical decision making as documented below. The patient is identified by name and birthday. Patient loca tion: [place] The patient is aware that I am [...] Phone time: 5 min cnpn on 2020-02-20 [facility] (F[facility]) Normal 02-20-2020 [facility] SALLY VARGAS ([id number]) 1980 [facility] Date Time Provider Department ([id number]) 02/20/20 MARCELINO MEJIA During your visit today, we recorded the following informati on about you: Lexy Tapia RN 02/20/2020 8:40 AM Signed fyi- Patient calls to report to PCP that she was back in [facility] ER over weekend due to pain from Pancreatitis. Her level was 800, so they s ent me home. States she received Oxycodone and report s that it is not doing much to relieve her pain and wanted PCP aware that she was in ER again. Patient did not have phone number of [facility] to schedule f ollow up. This [...] Encounter Status:Closed by MARCELINO MEJIA on 02/20/20 [facility] ([facility]) Normal 02-20-2020 [place] SALLY Martinez ([id number]) 1980 [place] Date Time Provider Department ([id number]) 02/20/20 MARCELINO MEJIAPWS During your visit today, we recorded the following informati on about you: Melanie Swenson DAVID 02/20/2020 2:25 PM Signed Patient calling wants note sent to PCP, she is currently i n [facility] ER. Patient said she has been sitting there for about 20 minutes now. Marcelino Mejia MD 02/20/2020 2:35 PM Signed Noted. Allergies As of Date: 02/20/2020 Noted Allergy Reaction PENICILLINS 12/07/2009 2 - Rash ASA (SALICYLATES) 01/27/2011 14 - Other: See Comments Comments: ulcers CONTRAST DYE (IODINE) 05/17/2008 12 - Shortness of Breath FLAGYL (METRONIDAZOLE HCL) 03/11/2010 12 - Shortness of Capac th IBUPROFEN 06/18/2016 8 - GI Upset [...] Encounter Status:Closed by MARCELINO MEJIA on 02/20/20 [facility] Telephone (FAMPWS) Normal 02-20-2020 [facility] SALLY VARGAS ([id number]) 1980 [facility] Date Time Provider Department ([id number]) 02/20/20 MARCELINO MEJIA During your visit today, we recorded the following informati on about you: Christopher Carcamo RN 02/20/2020 9:48 AM Signed Patient phoned crying and distraught, stating [facility], can not get her in until March. States she cannot take this pain anymore, her insurance will not cover anyone in [facility] When she was in the [...] pain right now, she is upset because [facility] cannot see her until March. Asking if there is anything pcp can do to get her in sooner? Ple ase phone patient with reply. Marcelino Mejia MD 02/20/2020 10:15 AM Signed Let patient know the only op tions ar for her to go to [facility] ER to see if will [...] has no one to take her to [place]. She said when she goes to [facility] the y just drug her up [...] Crying. She cannot get transport ation to [facility]. Insurance does not cover [facility] and do es not want to go back to [place] because they will just send h er home with meds and dope me up for 3-4 days. Johnathon SOTELO cannot get her an appointment until March . Will route to clerical gastro for schedu ling within [facility] possibly [facility]. Marcelino Mejia MD 02/20/2020 12:34 PM Signed noted Augustina Vera, LUCIUS VISCOSE CELLAR WORKER.MANUELITO 02/20/2020 12:40 PM Signed I'd suggest that she go to [facility] today. it w ould not be [...] she has no way of getting to [facility]. Pt states she does not th ink they take her insurance either. Spoke with PCP who suggested [facility]. Relayed message to pt, pt started yelling stating she has no transp ortation. States if she calls ambulance they will only take her within [facility]. Sta los her boyfriend can't take [...] illness. Asking letter to be faxed to [phone]. Marcelino Mejia MD 02/20/2020 2:38 PM Signed Let patient know ER report from 02/18/2020 was reviewed and th e ER Physician wanted to keep but she preferred to go home and see if she c ould manage it there. Lorenzo Thomascecilia 02/20/2020 4:06 PM Signed Patient returned call, stating she went to [facility] ER today an d they discharged her because her level is less than 800. Reques ting something for pain, that Percocet helped some in past. No transportation to go anywhe re but [facility] (?adoption social worker to help with transportat ion). [...] doctor. In regards to her letter for [employer] what I [...] Signed Letter ready to be faxed to [phone]. Branden Sanders Ma 02/21/2020 8:24 AM Signed Faxed letter Branden Sanders Ma Allergies As of Date: 02/20/2020 Noted Allergy Reaction PENICILLINS 12/07/2009 2 - Rash ASA (SALICYLATES) 01/27/2011 14 - Other: See Comments Comments: ulcers CONTRAST DYE (IODINE) 05/17/2008 12 - Shortness of Breath FLAGYL (METRONIDAZOLE HCL) 03/11/2010 12 - Shortness of Capac th IBUPROFEN 06/18/2016 8 - GI Upset [...] on 2020-02-16 CNPN Telephone (UCWSTR) Normal 02-16-2020 [place] [facility] SALLY VARGAS ([id number]) 1980 [facility] Date Time Provider Department ([id number]) 02/16/20 JESSICA JESUS) [facility] During your visit today, we recorded [...] (METRONIDAZOLE HCL) 03/11/2010 12 - Shortness of Capac th IBUPROFEN 06/18/2016 8 - GI Upset [...] on 02/16/20 CNPN Telephone (FAMPWS) Normal 02-16-2020 [place] [facility] SALLY VARGAS ([id number]) 1980 [facility] Date Time Provider Department (44261) 02/16/20 ISABEL ARIAS) [facility] During your visit today, we recorded [...] 02/16/20 progress on 2020-02 PROGRESS HNO ID: [id number] Normal 02-15-2020 [facility] Author: Marcelino Mejia [place] ([id number]) Service: ? Author Type: Physician Type: Progress [...] today?s visit. Patient was sen in [facility] ER on 02/01/2020 with C/O epigastric [...] nosis) - CONSULT TO GASTROENTEROLOGY: [facility] [place] - Cont prn phenergan. 2. Tongue ulcer [...] 02-15-2020 [facility] activity/Vol] [place] and (52783) Comment: Performed By: #### LIPA, CMP , CBCDIF, AMYL #### [facility] [address] [place], [place] [address] comp metabolic panel on 2020-02-15 Albumin [Mass/Vol] 4.6 3.9-4.9 g/dL Normal 02-15-2020 [facility] (61298) Comment: Performed By: #### LIPA, CMP , CBCDIF, AMYL #### [facility] [address] [place], [place] [address] ALP [Catalytic activity/Vol] 90 34-123 U/L Normal 0 02-15-2020 [facility] (94741) Comment: Performed By: #### LIPA, CMP , CBCDIF, AMYL #### [facility] [address] [place], [place] [address] ALT [Catalytic activity/Vol] 6 7-38 U/L Low 0 02-15-2020 [facility] (22089) Comment: Performed By: #### LIPA, CMP , CBCDIF, AMYL #### [place] [id number] Anion gap [Moles/Vol] 13 9-18 mmol/L Normal 02-15-20 20 [facility] (15392) Comment: Performed By: #### LIPA, CMP , CBCDIF, AMYL #### [address] [address] AST [Catalytic activity/Vol] 20 13-35 U/L Normal 0 02-15-2020 [facility] (75362) Comment: Performed By: #### LIPA, CMP , CBCDIF, AMYL #### [address] [address] Bilirubin [Mass/Vol] 0.2 0.2-1.3 mg/dL Normal 0 [facility] (22813) Comment: Performed By: #### LIPA, CMP , CBCDIF, AMYL #### [address] [address] Calcium [Mass/Vol] 10.2 8.5-10.2 mg/dL Normal 02-15-2020 [facility] (30052) Comment: Performed By: #### LIPA, CMP , CBCDIF, AMYL #### [address] [address] Chloride [Moles/Vol] 100 97-105 mmol/L Normal 0 [facility] (61514) Comment: Performed By: #### LIPA, CMP , CBCDIF, AMYL #### [facility] [address] [place], [place] [address] CO2 [Moles/Vol] 26 22-30 mmol/L Normal 02-15-2020 [facility] (15939) Comment: Performed By: #### LIPA, CMP , CBCDIF, AMYL #### [facility] [address] [place], [place] [address] Creatinine [Mass/Vol] 0.92 0.58-0.96 mg/dL Normal 02-15-20 20 [facility] (05374) Comment: Performed By: #### LIPA, CMP , CBCDIF, AMYL #### [facility] [address] [place] [address] eGFR- Amer. >60 Normal 02-15-2020 [facility] (61758) Comment: Performed By: #### LIPA, CMP , CBCDIF, AMYL #### [facility] [address] [place] [address] GFR/1.73 sq M predicted >60 mL/min/{1.73_m2} Normal 02-15-2020 [facility] among non-blacks [facility] (68850) (S/P/Bld) [Vol rate/Area] Comment: Result Comment: eGFR [...] #### LIPA, CMP , CBCDIF, AMYL #### [facility] [address] [place] [id number] Glucose [Mass/Vol] 89 74-99 mg/dL Normal 02-15-2020 [facility] (42577) Comment: Result Comment: The [place] Diabetes Association (ADA) provides guidance for cutoff [...] for diagnosis of diabetes. Reference: Standards of [facility] Care in Diabetes 2016, [place] [employer] Association. Diabetes Care. 2016.39(Suppl 1). Performed By: #### LIPA, CMP , CBCDIF, AMYL #### [facility] [address] [place], [place] [address] Potassium [Moles/Vol] 3.7 3.7-5.1 mmol/L Normal 02-15-20 [facility] (75624) Comment: Performed By: #### LIPA, CMP , CBCDIF, AMYL #### [facility] [address] [place], [place] [address] Protein [Mass/Vol] 7.8 6.3-8.0 g/dL Normal 02-15-2020 [facility] (11592) Comment: Performed By: #### LIPA, CMP , CBCDIF, AMYL #### [facility] [address] [place], [place] [address] Sodium [Moles/Vol] 139 136-144 mmol/L Normal 02-15-2020 [facility] (99767) Comment: Performed By: #### LIPA, CMP , CBCDIF, AMYL #### [facility] [address] [place], [place] [address] Urea nitrogen [Mass/Vol] 9 7-21 mg/dL Normal 02-14 [facility] (68580) Comment: Performed By: #### LIPA, CMP , CBCDIF, AMYL #### [facility] [address] [place], [place] [address] cnov on 2020-02-15 CNOV Office Visit (FAMPWS) Normal 02-15-[address] [place] [address] Debra SALLY VARGAS ([id number]) 1980 [facility] Date Time Provider Department (00908) 02/15/20 2:20 PM [facility] During your visit today, we recorded [...] today?s visit. Patient was sen in [facility] ER on 02/01/2020 with C/O epigastric [...] diagnosis) - CONSULT TO GASTROENTEROLOGY: [facility] in [place] - Cont prn phenergan. 2. Tongue ulcer [...] Visit: Transition Of Care [4074] Cmt: [facility] pancreatitis Reason For Visit History Recorded Primary Visit Diagnosis:Acute pancreatitis without infection or necrosis, unspecified pancreatitis type [K85.90] Other Visit Diagnoses:Tongue ulcer [K14.0] Poor dentition [K08.9] Thrush [B37.0] Order(s):CONSULT TO GASTROENTEROLOGY [2255] Order #: 1 [id number]: 1 FUTURE triamcinolone (KENALOG IN ORABASE) 0.1 [...] Abs Baso 0.07 <0.11 k/uL Normal 02-15-2020 [facility] (18313) Comment: Performed By: #### LIPA, CMP , CBCDIF, AMYL ####[place] [address] [place] [phone] Abs Woodward 0.53 <0.87 k/uL Normal 02-15-2020 [facility] (24575) Comment: Performed By: #### LIPA, CMP , CBCDIF, AMYL ####[facility] [place] [phone] Abs Neut 6.05 1.45-7.50 k/uL Normal 02-15-2020 [facility] (50056) Comment: Performed By: #### LIPA, CMP , CBCDIF, AMYL ####[facility] [place] [phone] Absolute nRBC <0.01 <0.01 Normal 02-15-2020 [facility] (89034) Comment: Performed By: #### LIPA, CMP , CBCDIF, AMYL ####[facility] [place] [phone] Basophils/100 WBC (Bld) 0.7 % Normal 2019 [facility] (79535) Comment: Performed By: #### LIPA, CMP , CBCDIF, AMYL ####[facility] [place] [phone] DTYPE Auto Diff Normal 02-15-2020 [facility] (52699) Comment: Performed By: #### LIPA, CMP , CBCDIF, AMYL ####[facility] [address] [place] [phone] Eosinophils (Bld) [#/Vol] 0.38 <0.46 k/uL Normal - [facility] (15142) Comment: Performed By: #### LIPA, CMP , CBCDIF, AMYL ####[facility] [address] [place] [phone] Eosinophils/100 WBC (Bld) 3.9 % Normal [facility] (78588) Comment: Performed By: #### LIPA, CMP , CBCDIF, AMYL ####[facility] [place] [phone] Erythrocyte distribution 14.7 11.5-15.0 % Normal 02-14 [facility] width (RBC) [Ratio] [place] (76824) Comment: Performed By: #### LIPA, CMP , CBCDIF, AMYL ####[facility] [address] [place] [phone] Hematocrit (Bld) [Volume 40.4 36.0-46.0 % Normal 02-14 [facility] fraction] [place] (54383) Comment: Performed By: #### LIPA, CMP , CBCDIF, AMYL ####[facility] [address] [place] [phone] Hemoglobin (Bld) 12.0 11.5-15.5 g/dL Normal 02-15-2020 [facility] [Mass/Vol] [place] (67728) Comment: Performed By: #### LIPA, CMP , CBCDIF, AMYL ####[facility] [address] [place] [phone] Lymphocytes (Bld) [#/Vol] 2.77 1.00-4.00 k/uL Normal -0 [facility] (90947) Comment: Performed By: #### LIPA, CMP , CBCDIF, AMYL ####[facility] [place], [place] [phone] Lymphocytes/100 WBC (Bld) 28.3 % Normal [facility] (95859) Comment: Performed By: #### LIPA, CMP , CBCDIF, AMYL ####[facility] [place] [phone] MCH (RBC) [Entitic mass] 28.6 26.0-34.0 pG Normal 02-14 [facility] (21958) Comment: Performed By: #### LIPA, CMP , CBCDIF, AMYL ####[place] [address] [place], [place] [phone] MCHC (RBC) [Mass/Vol] 29.7 30.5-36.0 g/dL Low 02-15-20 [facility] (66673) Comment: Performed By: #### LIPA, CMP , CBCDIF, AMYL ####[facility] [place], [place] [phone] MCV (RBC) [Entitic vol] 96.4 80.0-100.0 fL Normal 02-14 [facility] (32598) Comment: Performed By: #### LIPA, CMP , CBCDIF, AMYL ####[facility] [place], [place] [phone] Monocytes/100 WBC (Bld) 5.4 % Normal 2019 [facility] (55632) Comment: Performed By: #### LIPA, CMP , CBCDIF, AMYL ####[facility] [place], [place] [phone] Neutrophils/100 WBC (Bld) 61.7 % Normal [facility] (28993) Comment: Performed By: #### LIPA, CMP , CBCDIF, AMYL ####[place] [address] [place], [place] [phone] NRBCs 0.0 0 /100 WBC Normal 02-15-2020 [facility] (48351) Comment: Performed By: #### LIPA, CMP , CBCDIF, AMYL ####[place] [address] [place] [phone] Platelet mean volume 10.6 9.0-12.7 fL Normal 0 [facility] (Bld) [Entitic vol] [place] (43550) Comment: Performed By: #### LIPA, CMP , CBCDIF, AMYL ####[place] [address] [place] [phone] Platelets (Bld) [#/Vol] 435 150-400 k/uL High 2019 [facility] (45394) Comment: Performed By: #### LIPA, CMP , CBCDIF, AMYL ####[place] [address] [place] [phone] RBC (Bld) [#/Vol] 4.19 3.90-5.20 m/uL Normal 02-15-2020 [facility] (20355) Comment: Performed By: #### LIPA, CMP , CBCDIF, AMYL ####[place] [address] [place] [phone] WBC (Bld) [#/Vol] 9.80 3.70-11.00 k/uL Normal 02-15-2020 [facility] (89288) Comment: Performed By: #### LIPA, CMP , CBCDIF, AMYL ####[place] [address] [place] [phone] amylase on Amylase [Catalytic 52 30-104 U/L Normal 02-15-2020 [facility] activity/Vol] [place] and (70889) Comment: Performed By: #### LIPA, CMP , CBCDIF, AMYL #### [facility] [address] [place], [place] [address] progress on 2020-02 PROGRESS HNO ID: [id number] Normal 02-14-2020 [facility] Author: Jessica Coppola) Fabi Lara ([id number]) Service: ? Author Type: Physician Director Supply Chain Type: Progress Notes Filed: 02/14/2020 1:14 PM [...] liver cyst 05/24/[address] [facility] 11/2009 and 04/2010 showe 4 mm increase in size . No pain. No elevated LFTs on 03/11/2010. - Calculus of kidney 05/17/[address] Nicolas: Hospitalized age 20, and again later -- no procedures so far ([facility], most, [address] [facility]) - Dysmenorrhea - Impaired fasting glucose [...] MG DAILY September 02, 2019 5:34am 09-02-2019 [facility] (16698) - ondansetron orally disintegrating (ZOFRAN ODT) 4 [...] Approx. 3 cigarettes daily-1 pack every w [place] Substance Use Topics - Alcohol use: Yes [...] - Swab Critical ly 02-14-2020 [facility] abnormal [place] Culture Result - Few Neris glabrata --> ABNORMAL ALERT (11000) Comment: Performed By: #### FUNGSC ## ##[facility] [address] [place], [place] [phone] cnov on 2020-02-14 CNOV Office Visit (UCWSTR) Normal 02-14-20 [place] [facility] SALLY VARGAS ([id number]) 1980 [place] Date Time Provider Department (90291) 02/14/20 12:45 PM JESSICA JESUS (CHAZ) [facility] During your visit today, we recorded [...] liver cyst 05/24/[address] [facility] 11/2009 and 04/2010 showe 4 mm increase in size . No pain. No elevated LFTs on 03/11/2010. - Calculus of kidney 05/17/[address] Nicolas: Hospitalized age 20, a nd again later -- no procedures so far ([facility], most, [facility]) - Dysmenorrhea - Impaired fasting glucose [...] DAILY September 02, 2019 5:34am 20-2 019 [facility] (02651) - ondansetron orally disintegrating (ZOFRAN ODT) 4 [...] Approx. 3 cigarettes daily-1 pack every w [place] Substance Use Topics - Alcohol use: Yes [...] (METRONIDAZOLE HCL) 03/11/2010 12 - Shortness of Capac th IBUPROFEN 06/18/2016 8 - GI Upset [...] mLRfl: 0 FUNGAL SCREEN [SQFUNGSC] Order #: [id number] Prescriptions as of 02/14/2020 Sig: PROMETHAZINE 25 [...] JESUS PA-C on 02/14/20 cnpn on 2020-02-13 [facility] Normal 02-13-2020 [place] [facility] SALLY VARGAS ([id number]) 1980 [facility] Date Time Provider Department ([id number]) 02/13/20 [facility] During your visit today, we recorded the following informati on about you: Christopher Carcamo RN 02/13/2020 10:27 AM Signed Patient reports she was discharged from [facility] yesterday, after a 4 day stay, for pancreatitis. Scheduled f/u visit with [facility], for tomorro w. Patient asking note be sent to provider also. Reports she still has a sore on he r tongue, [facility] doctor was not concerned about it. [...] (METRONIDAZOLE HCL) 03/11/2010 12 - Shortness of Capac th IBUPROFEN 06/18/2016 8 - GI Upset PENICILLINS 12/07/2009 2 - Rash PREDNISONE 06/18/2016 14 - Other: See Comments Comments: makes agitated and mean Date Reviewed: 01/02/2020 Reviewed by: Ashley Lehman Ma - Fully Assessed Reason for Visit: [facility] visit [Other] Prescriptions as of 02/13/2020 [...] on 2020-02-09 CNPN Telephone (FAMWS) Normal 02-09-2020 [place] [facility] SALLY VARGAS ([id number]) 1980 [facility] Date Time Provider Department ([id number]) 02/09/20 [facility] During your visit today, we recorded [...] back, stating she is currently at [facility] ER. States she had labs done [...] (METRONIDAZOLE HCL) 03/11/2010 12 - Shortness of Capac th IBUPROFEN 06/18/2016 8 - GI Upset [...] 02/09/20 progress on 2020-01 PROGRESS HNO ID: [id number] Normal 02-08-2020 [facility] Author: Isabel Romero) Hugo [place]ara ([id number]) Service: ? Author Type: Physician Director Supply Chain Type: Progress Notes Filed: 02/08/2020 10:57 AM Note Text: DISTANCE HEALTH VISIT This Team Access Model visit is a phone encounter. It requir ed patient-provider interaction for the medical decision making as documented below. No video was used for evaluation of this patient. Patient consents to visit. Patient location: [place] Sally Vargas is a 39 year old [...] patient report who presented to the [facility] ED on 02/01/20 with i ntermittent [...] seroquel and she has talked with [facility] office for what to do next. She has been taking oxycodone every 4 hours but has not need any yet today. Does mention a sore on her forearm. States getting worse. Red and hardened. 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 States she noticed it first in hospital. She is unable to send picture or have video conference. Is w illing to come to . HISTORY REVIEWED (electronic chart updated): - medical history - medications - allergies REVIEW OF SYSTEMS: As noted in HPI PHYSICAL EXAMINATION: [facility] 08/10/2006 No vitals taken. Deferred physical exam [...] minutes progress on 2020-01 PROGRESS HNO ID: [id number] Normal 02-07-2020 [facility] Author: Yvette Taylor RN [place] ([id number]) Service: ? Author Type: ? Type: Progress [...] be hidden SUMMARY: -Pt discharged from [facility] on 02-05-2020. -Follow up appointment on [...] patient report who presented to the [facility] ED on 02/01/20 with i ntermittent [...] CNPTOUTREACH Patient Outreach (FAMPWS) Normal 0 02-07-2020 [place] [facility] SALLY VARGAS ([id number]) 1980 [facility] Date Time Provider Department (28020) 02/07/20 MARCELINO MEJIA FAMPWS During your visit [...] be hidden SUMMARY: -Pt discharged from [facility] on 02-05-2020. 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 ED on 02/01/20 with intermittent epigastric [...] 02/07/20 emergency report on 2020-01-28 EMERGENCY REPORT [facility] Normal 01-27 [facility] EMERGENCY ROOM REPORT ([id number]) NAME ACCOUNT SEX AGE ADMIT DISCHARGE PT MED. RECORD# NUMBER DATE DATE TYPE SAM, [id number] F 39 01/20/20 01/21/20 3 SALLY [id number] ROOM: ER DATE OF : 1980 DICTATING [...] PHYSICAL EXAMINATION: Physic al examination reveals a wef-ald-qujpcfzfj female in no acute distress, resting c [...] Discussed the patient with Dr. Coleman at [facility], who accepted the patient for admission. The patient was transferred to [facility] in stable condition. Dictated By: Ana Rodriguez MD 01/21/20 01:30 JOB #: [id number] Transcribed By: thanh 01/21/20 10:04 Electronically signed by: Jennifer Perez MD 01/28/20 00:29 Page 2 of 2 SALLY VARGAS Emergency Room Report myco on 2020-01-26 Mycoplasma IgG POS Normal 01-26-2020 [facility] ([place]) (87105) Comment: Result Comment: INTERPRETATI ON OF MYCOPLASMA [...] CBC, ADIF F, ANEU, BMP, GFR #### [place] [address] progress on 2020-01 PROGRESS HNO ID: [id number] Normal 01-25-2020 [facility] Author: Roxanne Patel MA ([id number]) Service: ? Author Type: Outreach And Education Social Worker Type: Progress Notes Filed: 01/25/2020 7:39 AM Note Text: Te made to get setup. Roxanne Patel MA cnpn on 2020-01-25 CNPN Telephone (FAMPWS) Normal 01-25-2020 [place] [facility] SALLY VARGAS ([id number]) 1980 [facility] Date Time Provider Department (98048) 01/25/20 ISABEL ARIAS) RAMA During your visit [...] Fully Assessed Reason for Visit: MRI Appointment [3169] Prescriptions as of 01/25/2020 Sig: TOPIRAMATE 25 [...] 01/26/20 progress on 2020-01 PROGRESS HNO ID: [id number] Normal 01-24-2020 [facility] Author: Isabel Lara ([id number]) Service: ? Author Type: Physician Director Supply Chain Type: Progress Notes Filed: 01/24/2020 4:03 PM Note Text: DISTANCE HEALTH VISIT This Team Access Model visit is a phone encounter. It requir ed patient-provider interaction for the medical decision making as documented below. No video was used for evaluation of this patient. Patient consents to visit. Patient's location: [place] Chief Complaint No chief complaint on [...] was to see pain specialist in [facility]. She has missed or cancelled appointments [...] over the weekend. She was transferred to [facility] [place] in [place]. Reports n ot available but patient states ECHO and labs were normal. . States she received a phone call from an [place] And was told negative for Covid. But [...] pharmacy. She did receive phone call from cylinder worker last week and w ill be set up for heart monitor. She was suppose to have stress testing done at [facility] today and Carotid US done yesterday, [...] liver cyst 05/24/[address] [facility] 11/2009 and 04/2010 showe 4 mm increase in size . No pain. No elevated LFTs on 03/11/2010. - Calculus of kidney 05/17/[address] Nicolas: Hospitalized age 20, and again later -- no procedures so far ([facility], most, [facility]) - Dysmenorrhea - Impaired fasting glucose [...] MG DAILY September 02, 2019 5:34am 09-02-2019 [facility] ([id number]) - ondansetron orally disintegrating (ZOFRAN ODT) 4 [...] Approx. 3 cigarettes daily-1 pack every w [place] Substance Use Topics - Alcohol use: Yes [...] - ICD9: 786.59, ICD10: R07.89 Continue with cylinder worker. Will attempt to get records to see [...] minutes covid on 2020-01-24 COVID 19 Result QUALITY CONTROL CHECKER See Below CORNEG Normal 01-24-2020 [facility] ([place]) (0000 0) Comment: Result Comment: Negative Negative for COVID19 (SARS C oV2) by PCR. This test was developed and its performance characteristics determined by [facility]'s [facility] [place]. This test has bee n authorized by [...] November 12, 2019. Performed By: [facility] [id number] [place] [address] Business Analytics Intern: Raphael javier III, M.D. CLIA#: [id number] Phone#: Performed By: #### CBC, ADIF F, ANEU, BMP, GFR #### [place] [address] COVID 19 Source QUALITY CONTROL CHECKER See Below Normal 01-24-2020 [facility] ([place]) (71329) Comment: Result Comment: Nasopharynge al Swab Performed By: [facility] [address] [place] [address] Business Analytics Intern: Raphael javier III, M.D. CLIA#: [id number] Phone#: Performed By: #### CBC, ADIF F, ANEU, BMP, GFR #### [address] [address] myco on 2020-01-23 Mycoplasma IgM Negative Normal 01-23-2020 [facility] ([place]) (46585) Comment: Result Comment: INTERPRETATI ON OF MYCOPLASMA [...] CBC, ADIF F, ANEU, BMP, GFR #### [address] [address] crp on 2020-01-23 CRP [Mass/Vol] 0.57 <=0.80 mg/dL Normal 01-23-2020 [facility] ([place]) (43853) Comment: Performed By: #### CBC, ADIF F, ANEU, BMP, GFR #### [facility] [address] [place] [address] cnpn on 2020-01-23 CNPN Telephone (FAMPWS) Normal 01-23-2020 [place] [facility] [facility] ([id number]) 1980 F [place] Date Time Provider Department ([id number]) 01/23/20 ISABEL ARIAS) FAMPWS During your visit today, we recorded the following informati on about you: Lexy Tapia RN 01/23/2020 8:55 AM Signed fyi-Patient calls to report that she went to [facility] with chest pain. Transferred to [facility] and Echo was normal. She will have stress test tomorrow. Awaiting COVID-19 test results . Wanted PCP office aware. Reminded to schedule hospital follow up within two weeks of discharge. Lexy ARIAS PA-C 01/23/2020 9:10 AM Signed Noted. Please request ER records. Roxanne Patel MA, MA 01/23/2020 9:32 AM Signed Sent records to [facility]. DARRYN Fritz PA-C 01/24/2020 9:02 AM Signed Patient is scheduled this afternoon for ER Follow up. Basically until I have the ER report and stress test results, theres not much I can do. As we discussed, She is supposed t o be following up with cardiology- has seen whitley qiu as well. Please reschedule her for later this w [place] so we have time to get the [...] insurance there is not [employer] drivers in [facility] so waiting o n community action and has no way to get there [facility] offered appt for until [...] (METRONIDAZOLE HCL) 03/11/2010 12 - Shortness of Capac th IBUPROFEN 06/18/2016 8 - GI Upset [...] Erythrocyte distribution 14.1 11.5-15.5 % Normal 01-22 [facility] (RBC) [Ratio] [facility] ([place]) (36489) Comment: Performed By: #### CBC, ADIF F, ANEU, BMP, GFR #### [place] [address] Hematocrit (Bld) [Volume 35.6 34.0-46.0 % Normal 01-22 [facility] fraction] ([place]) (0000 0) Comment: Performed By: #### CBC, ADIF F, ANEU, BMP, GFR #### [place] [address] Hemoglobin (Bld) 11.9 12.0-16.0 G/dL Low 01-23-2020 [facility] [Mass/Vol] ([place]) (000 00) Comment: Performed By: #### CBC, ADIF F, ANEU, BMP, GFR #### [place] [id number] MCH (RBC) [Entitic mass] 30.0 27.0-33.0 pg Normal 01-22 [facility] ([place]) (0000 0) Comment: Performed By: #### CBC, ADIF F, ANEU, BMP, GFR #### [address] [address] MCHC (RBC) [Mass/Vol] 33.4 32.0-36.0 G/dL Normal 01-23-20 20 [facility] ([place]) (0000 0) Comment: Performed By: #### CBC, ADIF F, ANEU, BMP, GFR #### [place] [id number] MCV (RBC) [Entitic vol] 89.8 80.0-99.0 fL Normal 2019 [facility] ([place]) (0000 0) Comment: Performed By: #### CBC, ADIF F, ANEU, BMP, GFR #### [address] [address] Platelet mean volume 8.5 6.6-10.5 fL Normal 0 [facility] (Bld) [Entitic vol] ([place]) (35037) Comment: Performed By: #### CBC, ADIF F, ANEU, BMP, GFR #### [address] [address] Platelets (Bld) [#/Vol] 235 150-450 10 3/mcL Normal 2019 [facility] ([place]) (77033) Comment: Performed By: #### CBC, ADIF F, ANEU, BMP, GFR #### [place] [id number] RBC (Bld) [#/Vol] 3.97 4.10-5.30 10 6/mcL Low 01-23-2020 [facility] ([place]) (0000 0) Comment: Performed By: #### CBC, ADIF F, ANEU, BMP, GFR #### [place] [address] WBC (Bld) [#/Vol] 10.20 4.50-10.80 10 3/mcL Normal 01-23-2020 [facility] ([place]) (09467) Comment: Performed By: #### CBC, ADIF F, ANEU, BMP, GFR #### [address] [address] bmp on 2020-01-23 Creatinine [Mass/Vol] 0.94 0.50-1.20 mg/dL Normal 01-23-20 20 [facility] ([place]) (32999) Comment: Performed By: #### CBC, ADIF F, ANEU, BMP, GFR #### [place] [address] Urea nitrogen/Creatinine 20.2 10.0-22.0 ratio Normal 01-22 [facility] [Mass ratio] Foundat ion ([place]) (12537) Comment: Performed By: #### CBC, ADIF F, ANEU, BMP, GFR #### [place] [address] Calcium [Mass/Vol] 9.4 8.4-10.1 mg/dL Normal 01-23-2020 [facility] ([place]) (0000 0) Comment: Performed By: #### CBC, ADIF F, ANEU, BMP, GFR #### [address] [address] Chloride [Moles/Vol] 106 98-110 mEq/L Normal 0 [facility] ([place]) (0000 0) Comment: Performed By: #### CBC, ADIF F, ANEU, BMP, GFR #### [address] [address] CO2 [Moles/Vol] 28 22-32 mEq/L Normal 01-23-2020 [facility] ([place]) (47831) Comment: Performed By: #### CBC, ADIF F, ANEU, BMP, GFR #### [address] [address] Electrolyte Balance 6.0 4.0-15.0 mEq/L Normal 01-23-2020 [facility] ([place]) (0000 0) Comment: Performed By: #### CBC, ADIF F, ANEU, BMP, GFR #### [address] [address] Glucose [Mass/Vol] 91 70-110 mg/dL Normal 01-23-2020 [facility] ([place]) (55613) Comment: Performed By: #### CBC, ADIF F, ANEU, BMP, GFR #### [address] [address] Potassium [Moles/Vol] 4.2 3.5-5.0 mEq/L Normal 01-23-20 20 [facility] ([place]) (0000 0) Comment: Performed By: #### CBC, ADIF F, ANEU, BMP, GFR #### [address] [address] Sodium [Moles/Vol] 140 136-145 mEq/L Normal 01-23-2020 [facility] ([place]) (71272) Comment: Performed By: #### CBC, ADIF F, ANEU, BMP, GFR #### [address] [address] Urea nitrogen [Mass/Vol] 19.0 8.0-22.0 mg/dL Normal 01-22 [facility] ([place]) (21219) Comment: Performed By: #### CBC, ADIF F, ANEU, BMP, GFR #### [address] [address] .morph on 2020-01-13 1 Platelets (Bld) [#/Vol] Normal Normal 2019 [facility] ([place]) (41257) Comment: Result Comment: Few large pl atelets seen. Performed By: #### CBC, ADIF F, ANEU, BMP, GFR #### [place] [address] RBC morphology finding Nom Normal Normal [facility] (Bld) ([place]) (0000 0) Comment: Performed By: #### CBC, ADIF F, ANEU, BMP, GFR #### [place] [address] .manual diff on Basophil %, Manual 0.0 0.0-2.5 % Normal 01-23-2020 [facility] ([place]) (76318) Comment: Performed By: #### CBC, ADIF F, ANEU, BMP, GFR #### [place] [address] Basophil, Abs Manual 0.00 0.00-0.27 10 3/mcL Normal 0 [facility] ([place]) (52638) Comment: Performed By: #### CBC, ADIF F, ANEU, BMP, GFR #### [place] [address] Cells Counted 100 Normal 01-23-2020 Pending sale to [facility] ([place]) (18441) Comment: Performed By: #### CBC, ADIF F, ANEU, BMP, GFR #### [address] [address] Eosinophil %, Manual 0.0 0.0-6.0 % Normal 0 [facility] ([place]) (36126) Comment: Performed By: #### CBC, ADIF F, ANEU, BMP, GFR #### [place] [address] Eosinophil, Abs Manual 0.00 0.00-0.65 10 3/mcL Normal 020 [facility] ([place]) (79063) Comment: Performed By: #### CBC, ADIF F, ANEU, BMP, GFR #### [place] [address] Lymphocyte %, Manual 16.0 20.0-40.0 % Low 0 [facility] ([place]) (45153) Comment: Performed By: #### CBC, ADIF F, ANEU, BMP, GFR #### [place] [address] Lymphocyte, Abs Manual 1.63 0.90-4.32 10 3/mcL Normal 020 [facility] ([place]) (85955) Comment: Performed By: #### CBC, ADIF F, ANEU, BMP, GFR #### [place] [address] Monocyte %, Manual 5.0 2.0-13.0 % Normal 01-23-2020 [facility] ([place]) (99256) Comment: Performed By: #### CBC, ADIF F, ANEU, BMP, GFR #### [place] [address] Monocyte, Abs Manual 0.51 0.09-1.40 10 3/mcL Normal 0 [facility] ([place]) (08329) Comment: Performed By: #### CBC, ADIF F, ANEU, BMP, GFR #### [place] [address] Neutrophil %, Manual 79.0 50.0-75.0 % High 0 [facility] ([place]) (57563) Comment: Performed By: #### CBC, ADIF F, ANEU, BMP, GFR #### [place] [address] Neutrophil, Abs Manual 8.06 2.25-8.10 10 3/mcL Normal 020 [facility] ([place]) (55709) Comment: Performed By: #### CBC, ADIF F, ANEU, BMP, GFR #### [place] [address] .gfr on 2020-01-23 GFR >60 Normal 01-22- 0 [facility] ([place]) (93531) Comment: Result Comment: GFR Population mean for Afri can Chilean, Non- Americans Ages 20-29 = 116 mL/min/1.73 [...] CBC, ADIF F, ANEU, BMP, GFR #### [address] [address] GFR Non- >60 Normal 01-22 [facility] ([place]) (73324) Comment: Result Comment: GFR Population mean for Afri can Chilean, Non- Americans Ages 20-29 = 116 mL/min/1.73 [...] CBC, ADIF F, ANEU, BMP, GFR #### [address] [address] spag on 2020-01-22 SPAG . Normal 01-22-2020 [facility] asa MICRO - Microbiology [facility] ([place]) (53507) PROCEDURE: Streptococcus Pneumoniae Urine Antig [^1 *1] [...] Locations *1: This test was performed at: [address], [address]- , [place] [facility] Comment: Performed By: #### CBC, ADIF F, ANEU, BMP, GFR #### [place] [address] respid on 2020-01-13 0 Adenovirus Not Detected Not Detected Normal 01-22-2020 [facility] ([place]) (0000 0) Comment: Performed By: #### CBC, ADIF F, ANEU, BMP, GFR #### [place] [address] Bordetella Not Detected Not Detected Normal 01-22-2020 [facility] Parapertussis Founda tion ([place]) (64269) Comment: Performed By: #### CBC, ADIF F, ANEU, BMP, GFR #### [place] [address] Bordetella Pertussis Not Detected Not Detected Normal [facility] ([place]) (65977) Comment: Performed By: #### CBC, ADIF F, ANEU, BMP, GFR #### [place] [address] Chlamydophila Not Detected Not Detected Normal 01-22-2020 [facility] pneumoniae Foundatio n ([place]) (71525) Comment: Performed By: #### CBC, ADIF F, ANEU, BMP, GFR #### [address] [address] Coronavirus 229E Not Detected Not Detected Normal 020 [facility] (Not [facility] ([place] (89424) Comment: Performed By: #### CBC, ADIF F, ANEU, BMP, GFR #### [address] [address] Coronavirus HKU1 Not Detected Not Detected Normal 020 [facility] (Not COVID-19) [facility] (95665) Comment: Performed By: #### CBC, ADIF F, ANEU, BMP, GFR #### [address] [address] Coronavirus NL63 Not Detected Not Detected Normal 020 [facility] (Not COVID-19) [facility] (97236) Comment: Performed By: #### CBC, ADIF F, ANEU, BMP, GFR #### [address] [address] Coronavirus OC43 Not Detected Not Detected Normal 020 [facility] (Not COVID-19) [facility] ([place] (79645) Comment: Performed By: #### CBC, ADIF F, ANEU, BMP, GFR #### [address] [address] Human Metapneumovirus Not Detected Not Detected Normal [facility] ([place]) (45505) Comment: Performed By: #### CBC, ADIF F, ANEU, BMP, GFR #### [address] [address] Influenza A Not Detected Not Detected Normal 01-22-2020 A [facility] ([place]) (0000 0) Comment: Performed By: #### CBC, ADIF F, ANEU, BMP, GFR #### [address] [address] Influenza B Not Detected Not Detected Normal 01-22-2020 A [facility] ([place]) (0000 0) Comment: Performed By: #### CBC, ADIF F, ANEU, BMP, GFR #### [facility] [address] [place], [place] [address] Mycoplasma Not Detected Not Detected Normal 01-22-2020 [facility] pneumoniae Foundatio n ([place]) (09776) Comment: Performed By: #### CBC, ADIF F, ANEU, BMP, GFR #### [address] [address] Parainfluenza 1 Not Detected Not Detected Normal 01-22-20 [facility] ([place]) (74511) Comment: Performed By: #### CBC, ADIF F, ANEU, BMP, GFR #### [address] [address] Parainfluenza 2 Not Detected Not Detected Normal 01-22-20 [facility] ([place]) (55915) Comment: Performed By: #### CBC, ADIF F, ANEU, BMP, GFR #### [place] [address] Parainfluenza 3 Not Detected Not Detected Normal 01-22-20 [facility] ([place]) (89007) Comment: Performed By: #### CBC, ADIF F, ANEU, BMP, GFR #### [address] [address] Parainfluenza 4 Not Detected Not Detected Normal 01-22-[address] [place] [address] ([place]) (61110) Comment: Performed By: #### CBC, ADIF F, ANEU, BMP, GFR #### [address] [address] Respiratory Not Detected Not Detected Normal 01-22-2020 [facility] Syncytial Virus Foun dation ([place]) (86323) Comment: Performed By: #### CBC, ADIF F, ANEU, BMP, GFR #### [address] [address] Rhinovirus/Enterovirus Not Detected Not Detected Normal 0 01-22-2020 [facility] ([place]) (75515) Comment: Performed By: #### CBC, ADIF F, ANEU, BMP, GFR #### [address] [address] sonali on 2020-01-22 SONALI . Normal 01-22-2020 [facility] MICRO - Microbiology [facility] ([place]) (62865) PROCEDURE: Legionella Urine Ag [*1] SOURCE: Urine [...] Locations *1: This test was performed at: [address], [address]- , [place] Comment: Performed By: #### CBC, ADIF F, ANEU, BMP, GFR #### [address] [address] ldh on 2020-01-22 LDH 194 120-246 U/L Normal 01-22-2020 [facility] ([place]) (65094) Comment: Performed By: #### CBC, ADIF F, ANEU, BMP, GFR #### [address] [address] fib on 2020-01-22 Fibrinogen 414 250-550 mg/dL Normal 01-22-2020 [facility] ([place]) (14589) Comment: Performed By: #### CBC, ADIF F, ANEU, BMP, GFR #### [address] [address] ferr on 2020-01-22 Ferritin [Mass/Vol] 40 8-252 ng/mL Normal 01-22-2020 [facility] ([place]) (01322) Comment: Performed By: #### CBC, ADIF F, ANEU, BMP, GFR #### [address] [address] dimer on 2020-01-22 Fibrin D-dimer FEU IA <200 0-230 ug/mL Normal 01-22-20 20 [facility] (Bld) [Mass/Vol] ([place] ) (13145) Comment: Result Comment: Results repo rted in [...] CBC, ADIF F, ANEU, BMP, GFR #### [facility] [address] [place] [address] ct angiography chest w/contrast on 2020-01-22 CT ANGIOGRAPHY ORIGINAL Normal 01-22-2020 [facility] CHEST W/CONTRAST CT PULMONARY ANGIOGRAM WITH IV CONTRAST: with post-processing, volume rendering and 3-D acquisitions. This exam was performed according to our departmental dose optimization program, and includes the [facility] ([place]) llowing measures where appli cable: automated exposure control, adjustment of the mAs and/or kVp according to patient size and/or exam, and an iterative reconstruction algorithm. Patient received 13 hour (77779) contrast allergy preparation. CLINICAL STATEMENT: elevated d [...] distribution 13.7 11.5-15.5 % Normal 01-21 [facility] (RBC) [Ratio] [facility] ([place]) (14867) Comment: Performed By: #### CBC, ADIF F, ANEU, BMP, GFR #### [address] [address] Hematocrit (Bld) [Volume 36.0 34.0-46.0 % Normal 01-21 [facility] fraction] ([place]) (0000 0) Comment: Performed By: #### CBC, ADIF F, ANEU, BMP, GFR #### [address] [address] Hemoglobin (Bld) 11.9 12.0-16.0 G/dL Low 01-22-2020 [facility] [Mass/Vol] ([place]) (000 00) Comment: Performed By: #### CBC, ADIF F, ANEU, BMP, GFR #### [address] [address] MCH (RBC) [Entitic mass] 29.6 27.0-33.0 pg Normal 01-21 [facility] ([place]) (0000 0) Comment: Performed By: #### CBC, ADIF F, ANEU, BMP, GFR #### [address] [address] MCHC (RBC) [Mass/Vol] 33.0 32.0-36.0 G/dL Normal 01-22-20 20 [facility] ([place]) (0000 0) Comment: Performed By: #### CBC, ADIF F, ANEU, BMP, GFR #### [address] [address] MCV (RBC) [Entitic vol] 89.8 80.0-99.0 fL Normal 2019 [facility] ([place]) (0000 0) Comment: Performed By: #### CBC, ADIF F, ANEU, BMP, GFR #### [address] [address] Platelet mean volume 8.6 6.6-10.5 fL Normal 0 [facility] (d) [Entitic vol] ([place]) (21425) Comment: Performed By: #### CBC, ADIF F, ANEU, BMP, GFR #### [place] [id number] Platelets (Bld) [#/Vol] 269 150-450 10 3/mcL Normal 2019 [facility] ([place]) (21933) Comment: Performed By: #### CBC, ADIF F, ANEU, BMP, GFR #### [address] [address] RBC (Bld) [#/Vol] 4.01 4.10-5.30 10 6/mcL Low 01-22-2020 [facility] ([place]) (0000 0) Comment: Performed By: #### CBC, ADIF F, ANEU, BMP, GFR #### [place] [id number] WBC (Bld) [#/Vol] 12.20 4.50-10.80 10 3/mcL High 01-22-2020 [facility] ([place]) (0000 0) Comment: Performed By: #### CBC, ADIF F, ANEU, BMP, GFR #### [address] [address] bmp on 2020-01-22 Calcium [Mass/Vol] 9.5 8.4-10.1 mg/dL Normal 01-22-2020 [facility] ([place]) (0000 0) Comment: Performed By: #### CBC, ADIF F, ANEU, BMP, GFR #### [address] [address] Chloride [Moles/Vol] 106 98-110 mEq/L Normal 0 [facility] ([place]) (0000 0) Comment: Performed By: #### CBC, ADIF F, ANEU, BMP, GFR #### [address] [address] CO2 [Moles/Vol] 24 22-32 mEq/L Normal 01-22-2020 [facility]) (54719) Comment: Performed By: #### CBC, ADIF F, ANEU, BMP, GFR #### [address] [address] Creatinine [Mass/Vol] 0.76 0.50-1.20 mg/dL Normal 01-22-20 20 [facility] ([place]) (86168) Comment: Performed By: #### CBC, ADIF F, ANEU, BMP, GFR #### [address] [address] Electrolyte Balance 6.0 4.0-15.0 mEq/L Normal 01-22-2020 [facility]) (0000 0) Comment: Performed By: #### CBC, ADIF F, ANEU, BMP, GFR #### [address] [address] Glucose [Mass/Vol] 149 70-110 mg/dL High 01-22-2020 [facility] ([place]) (21178) Comment: Performed By: #### CBC, ADIF F, ANEU, BMP, GFR #### [address] [address] Potassium [Moles/Vol] 4.1 3.5-5.0 mEq/L Normal 01-22-20 20 [facility] ([place]) (0000 0) Comment: Performed By: #### CBC, ADIF F, ANEU, BMP, GFR #### [address] [address] Sodium [Moles/Vol] 136 136-145 mEq/L Normal 01-22-2020 [facility] ([place]) (15338) Comment: Performed By: #### CBC, ADIF F, ANEU, BMP, GFR #### [address] [address] Urea nitrogen [Mass/Vol] 12.0 8.0-22.0 mg/dL Normal 01-21 [facility] ([place]) (95497) Comment: Performed By: #### CBC, ADIF F, ANEU, BMP, GFR #### [address] [address] Urea nitrogen/Creatinine 15.8 10.0-22.0 ratio Normal 01-21 [facility] [Mass ratio] [facility] ([place]) (43583) Comment: Performed By: #### CBC, ADIF F, ANEU, BMP, GFR #### [address] [address] .neuabs on Neutrophils (Bld) 10.70 2.25-8.10 10 3/mcL High 01-22-2020 [facility] [#/Vol] [facility] ([place]) (32739) Comment: Performed By: #### CBC, ADIF F, ANEU, BMP, GFR #### [address] [address] .gfr on 2020-01-22 GFR Non- >60 Normal 01-21 [facility] ([place]) (89862) Comment: Result Comment: GFR Population mean for Afri can Chilean, Non- Americans Ages 20-29 = 116 mL/min/1.73 [...] CBC, ADIF F, ANEU, BMP, GFR #### [address] [address] GFR >60 Normal 0 [facility] ([place]) (17112) Comment: Result Comment: GFR Population mean for Afri can Chilean, Non- Americans Ages 20-29 = 116 mL/min/1.73 [...] CBC, ADIF F, ANEU, BMP, GFR #### [address] [address] .auto diff on 01-21 Ammonia (P) [Mass/Vol] 0.30 0.09-1.40 10 3/mcL Normal 020 [facility] ([place]) (51769) Comment: Performed By: #### CBC, ADIF F, ANEU, BMP, GFR #### [address] [address] Basophils (Bld) 0.00 0.00-0.27 10 3/mcL Normal 01-22-2020 [facility] [#/Vol] [facility] ([place]) (03239) Comment: Performed By: #### CBC, ADIF F, ANEU, BMP, GFR #### [address] [address] Basophils/100 WBC (Bld) 0.3 0.0-2.5 % Normal 2019 [facility] ([place]) (0000 0) Comment: Performed By: #### CBC, ADIF F, ANEU, BMP, GFR #### [address] [address] Eosinophils (Bld) 0.00 0.00-0.65 10 3/mcL Normal 01-22-2020 [facility] [#/Vol] [facility] ([place]) (94740) Comment: Performed By: #### CBC, ADIF F, ANEU, BMP, GFR #### [address] [address] Eosinophils/100 WBC (Bld) 0.1 0.0-6.0 % Normal 01-12 0-2019 [facility] ([place]) (0000 0) Comment: Performed By: #### CBC, ADIF F, ANEU, BMP, GFR #### [address] [address] Lymphocytes (Bld) 1.10 0.90-4.32 10 3/mcL Normal 01-22-2020 [facility] [#/Vol] [facility] ([place]) (49813) Comment: Performed By: #### CBC, ADIF F, ANEU, BMP, GFR #### [address] [address] Lymphocytes/100 WBC (Bld) 9.3 20.0-40.0 % Low - 0-2019 [facility] ([place]) (0000 0) Comment: Performed By: #### CBC, ADIF F, ANEU, BMP, GFR #### [address] [address] Monocytes/100 WBC (Bld) 2.2 2.0-13.0 % Normal 2019 [facility] ([place]) (0000 0) Comment: Performed By: #### CBC, ADIF F, ANEU, BMP, GFR #### [address] [address] Neutrophils/100 WBC (Bld) 88.1 50.0-75.0 % High - 0-2019 [facility] ([place]) (0000 0) Comment: Performed By: #### CBC, ADIF F, ANEU, BMP, GFR #### [address] [address] urinalysis with microscopy on 2020-01-21 Amorphous NONE Normal 01-21-2020 [facility] (99336) Comment: Performed By: #### [id number] ## ## [facility],[address] [place] [address] Bacteria LM.HPF (Urine sed) 3+ Normal [facility] [/Area] [facility] ( [address]70[address]) Comment: Performed By: #### [id number] ## ## [facility],[address] [place] [address] Bilirubin [Mass/Vol] NEG NORMAL: NEGATIVE mg/dL Normal [facility] ospital (01848) Comment: Performed By: #### [id number] ## ## [facility],[address] [place] [address] Blood 10 NORMAL: NEGATIVE Abnormal 01-21-2020 [facility] (86236) Comment: Performed By: #### [id number] ## ## [facility],[address] [place] [address] Casts LM.LPF (Urine sed) NONE Normal 01-20 [facility] [#/Area] [facility] ( 15541) Comment: Performed By: #### [id number] ## ## [facility],[address] [place] [address] Clarity (U) sl.cloudy NORMAL: CLEAR Normal 01-21-2020 [facility] ( 52101) Comment: Performed By: #### [id number] ## ## [facility],[address] [place] [address] Color (U) p.yel NORMAL: YELLOW Normal 01-21-2020 [facility] (24845) Comment: Performed By: #### [id number] ## ## [facility],[address] [place] [address] Crystals LM Nom (Urine sed) NONE Normal [facility] ( 32759) Comment: Performed By: #### [id number] ## ## [facility],[address] [place] [address] Epi Cells MANY Normal 01-21-2020 [facility] (46326) Comment: Performed By: #### [id number] ## ## [facility],[address] [place] [address] Glucose [Mass/Vol] NORM NORMAL: NORMAL Normal 2019 [facility] ( 15255) Comment: Performed By: #### [id number] ## ## [facility],[address] [place] [address] Ketone NEG NORMAL: NEGATIVE Normal 01-21-2020 [facility] (89251) Comment: Performed By: #### [id number] ## ## [facility],[address] [place] [address] Mucous NONE Normal 01-21-2020 [facility] (29761) Comment: Performed By: #### [id number] ## ## [facility],[address] [place] [address] Nitrite Ql (U) NEG NORMAL: NEGATIVE Normal 01-21-20 [facility] ( 70790) Comment: Performed By: #### [id number] ## ## [facility],[address] [place] [address] pH (Bld) 5 NORMAL: 5.0-8.0 Normal 01-21-2020 [facility] (22219) Comment: Performed By: #### [id number] ## ## [facility],[address] [place] [address] Protein (U) NEG NORMAL: NEGATIVE mg/dL Normal 01-21-2020 [facility] [Mass/Vol] [facility] (35165) Comment: Performed By: #### [id number] ## ## [facility],[address] [place] [address] Rbc 0-5 0-3 / hpf Normal 01-21-2020 [facility] (49771) Comment: Performed By: #### [id number] ## ## [facility] [place] [address] Sp [place] 1.020 NORMAL: 1.010-1.030 Normal 0 [facility] ( 67770) Comment: Performed By: #### [id number] ## ## [facility],[address] [place] [address] Specimen type Nom (Spec) UNSPECIFIED Normal [facility] ( 26794) Comment: Performed By: #### [id number] ## ## [facility],[address] [place] [address] URINALYSIS WITH MICROSCOPY Normal [facility] (59635) Comment: Result Comment: URINALYSIS Performed By: #### [id number] ## ## [facility],[address] [place] [address] Urobilinog NORM NORMAL: NORMAL Normal 01-21-2020 [facility] (24714) Comment: Performed By: #### [id number] ## ## [facility],[address] [place] [address] Wbc 1-5 0-5 / hpf Normal 01-21-2020 [facility] (23596) Comment: Performed By: #### [id number] ## ## [facility],[address] [place] [address] WBC (Bld) [#/Vol] NEG NORMAL: NEGATIVE 10*3/uL Normal 01-20 [facility] (60686) Comment: Result Comment: URINE MICROS COPIC Performed By: #### [id number] ## ## [facility],[address] [place] [address] 64545 Yeast LM Ql (Urine sed) NONE Normal 2019 [facility] (92461) Comment: Performed By: #### [id number] ## ## [facility],[address] [place] [address] 44908 troponin on 2020-01 Troponin I.cardiac <0.01 0.00 - 0.05 ng/mL Normal 0 [facility] [place] [Mass/Vol] [facility] (10688) Comment: Result Comment: Elevated tro ponin (above [...] as heterophile antibodi es). Performed By: #### [id number] ## ## [facility],[address] [place] [address] 95132 tropi on 2020-01-21 Troponin I.cardiac <0.015 0.000-0.040 ng/mL Normal 0 [facility] [Mass/Vol] [facility] [place] (70700) Comment: Result Comment: Troponin I r eference ranges (05/22/14): 0.00-0.040 ng/mL Negative an d non-diagnostic. >0.040 ng/mL Consistent with cardiac damage, increased clinical risk and possibility of myocardial in farction. Serial measurements, a rise & fall in test results, clinical histo ry, appropriate symptoms and/or ECG changes may help assess possibility of LA. *Other non-acute coronary sy ndrome conditions such as CHF, myoc arditis, pulmonary emboli, sepsis and cardiac surgery could result in myoc ardial damage and increased troponi n levels. Performed By: #### TROPI ### # [facility] [address] [place] [address] serum qual on 2020-01-21 EXTERNAL QC DONE? YES Normal 01-21-2020 [facility] (99388) Comment: Performed By: #### [id number] ## ## [facility],[address] [place] [address] 95860 INTERNAL QC PASS Normal 01-21-2020 [facility] (22539) Comment: Performed By: #### [id number] ## ## [facility] 30141 SER NEGATIVE NEGATIVE Normal 01-21-2020 [facility] (12807) Comment: Performed By: #### [id number] ## ## [facility] 90597 d-dimer, quantitative on 2020-01-21 D-DIMER QUANT 256 0 - 230 ng/ml High 01-21-2020 [facility] (58946) Comment: Performed By: #### [id number] ## ## [facility],[address] [place] [address] 70162 D-DIMER, QUANTITATIVE Normal 01-21-20 20 [facility] (96949) Comment: Result Comment: QUANT D-DIME R Performed By: #### [id number] ## ## [facility],[address] [place] [address] brain w/o contrast on 2020-01-21 CT BRAIN W/O [facility] Normal 0 [facility] ospital [address] [place] [address] ([id number]) Patient: SALLY VARGAS Phone#: : 1980 Age: 39 Gender: F Pt. Type: ER Account: [id number] Location: [facility] Ordering: DR. ANA RODRIGUEZ Exam Date: 01/20/2020/23:41 Family Phys: ISABEL ARIAS Charge Code: [id number] Physician: [place] Order #: [id number] DLP Dose#: [id number] PROCEDURE: CT BRAIN WITHOUT CONTRAST COMPARISON: [facility], CT, BRAIN W/O CON, 01/29/2017, 22:39. INDICATIONS: Dizziness. TECHNIQUE: CT images were obtained without contrast material . [facility] CT [facility] use dose modulation, iterative reconstruction, [...] abnormality or interval change. Dictated by: Kelsey aMe MD on 01/21/2020 at 18:04 Continued Report - Page 2 of 2 Patient: SALLY VARGAS Phone#: : 1980 Age: 39 Gender: F Pt. Type: ER Account: [id number] Location: [facility] Ordering: DR. ANA RODRIGUEZ Exam Date: 01/20/2020/23:41 Family Phys: ISABEL ARIAS Charge Code: [id number] Physician: [place] Order #: [id number] DLP Dose#: [id number] Approved by: Kelsey Mae MD on 01/21/2020 at 18:04 cmp with egfr on 31-01-09 Age - Reported 39 years Normal 01-21-2020 [facility] (08453) Comment: Performed By: #### [id number] ## ## [facility],[address] [place] [address] 89484 Albumin [Mass/Vol] 4.3 3.4 - 4.8 g/dL Normal 01-21-2020 [facility] ( 73815) Comment: Performed By: #### [id number] ## ## [facility],[address] [place] [address] 57427 Albumin/Globulin [Mass 1.5 0.9 - 1.6 {ratio} Normal 020 [facility]] [facility]ital (60484) Comment: Performed By: #### [id number] ## ## [facility],[address] [place] [address] 79721 ALK PHOS 71 38 - 126 U/L Normal 01-21-2020 [facility] (96750) Comment: Performed By: #### [id number] ## ## [facility],[address] [place] [address] 38320 ALT/SGPT 11 8 - 35 U/L Normal 01-21-2020 [facility] (16510) Comment: Performed By: #### [id number] ## ## [facility],[address] [place] [address] 01770 Anion gap [Moles/Vol] 12 10 - 20 mmol/L Normal 01-21-20 20 [facility] ( 77275) Comment: Performed By: #### [id number] ## ## [facility],[address] [place] [address] 05809 AST/SGOT 12 13 - 39 U/L Low 01-21-2020 [facility] (63483) Comment: Performed By: #### [id number] ## ## [facility],[address] [place] [address] 13915 B/C RATIO 19 0 - 30 ratio Normal 01-21-2020 [facility] (07746) Comment: Performed By: #### [id number] ## ## [facility],[address] [place] [address] 73660 Bilirubin [Mass/Vol] 0.3 0.0 - 1.5 mg/dl Normal 0 [facility] ( 33198) Comment: Performed By: #### [id number] ## ## [facility],[address] [place] [address] 69351 Calcium [Mass/Vol] 9.2 8.6 - 10.2 mg/dl Normal 01-21-2020 [facility] ( 56230) Comment: Performed By: #### [id number] ## ## [facility],[address] [place] [address] 45542 Chloride [Moles/Vol] 102 98 - 107 mmol/L Normal 0 [facility] ( 08212) Comment: Performed By: #### [id number] ## ## [facility],[address] [place] [address] 00404 CO2 [Moles/Vol] 25.6 21.0 - 31.0 mmol/L Normal 01-21-[address] [facility] ( 27989) Comment: Performed By: #### [id number] ## ## [facility],[address] [place] [address] 54816 Creatinine [Mass/Vol] 1.1 0.6 - 1.2 mg/dl Normal 01-21-20 20 [facility] ( 20121) Comment: Performed By: #### [id number] ## ## [facility],[address] [place] [address] 21569 GFR/1.73 sq M >60 60 - 999 mL/min/{1.73_m2} Normal 0 [facility] [place] [facility] among [facility] non-blacks MDRD (000 00) (S/P/Bld) [Vol [...] OF AGE AND OLDER. Performed By: #### [id number] ## ## [facility],[address] [place] [address] 38968 GFR/1.73 sq M predicted 55 60 - 999 ML/MINUTE Low 2019 [facility] non-blacks MDRD Hospital (22124) (S/P/Bld) [Vol rate/Area] Comment: Performed By: #### [id number] ## ## [facility],[address] [place] [address] 90467 GFR/1.73 sq M predicted among Normal 01-21-2020 [facility] non-blacks MDRD (S/P/Bld) [Vol Hospital (85771) rate/Area] Comment: Result Comment: COMPREHENSIV E METABOLIC PANEL Performed By: #### [id number] ## ## [facility],[address] [place] [address] 27310 Globulin (S) [Mass/Vol] 2.9 1.5 - 3.8 G/DL Normal 2019 [facility] ( 35382) Comment: Performed By: #### [id number] ## ## [facility],[address] [place] [address] 75552 Glucose [Mass/Vol] 100 74 - 106 mg/dl Normal 01-21-2020 [facility] ( 04168) Comment: Performed By: #### [id number] ## ## [facility],[address] [place] [address] [place] [address] Potassium [Moles/Vol] 3.6 3.5 - 5.1 mmol/L Normal 01-21-20 20 [facility] ( 44906) Comment: Performed By: #### [id number] ## ## [facility],[address] [place] [address] [place] [address] Protein [Mass/Vol] 7.2 6.4 - 8.3 g/dl Normal 01-21-2020 [facility] ( 82592) Comment: Performed By: #### [id number] ## ## [facility],[address] [place] [address] [place] [address] Sodium [Moles/Vol] 136 136 - 145 mmol/l Normal 01-21-2020 [facility] ( 11538) Comment: Performed By: #### [id number] ## ## [facility],[address] [place] [address] [place] [address] Urea nitrogen [Mass/Vol] 21 6 - 20 mg/dl High 01-20 [facility] ( 22953) Comment: Performed By: #### [id number] ## ## [facility],981 [facility] 85881 chest 2 views on 31-01-09 CHEST 2 VIEWS [facility] Normal 01-21-20 [facility] [address] [place], [place] [address] (44930) Patient: SALLY VARGAS Phone#: : 1980 Age: 39 Gender: F Pt. Type: ER Account: [id number] Location: [facility] Ordering: DR. ANA RODRIGUEZ Exam Date: 01/20/2020/23:45 Family Phys: ISABEL ARIAS Charge Code: [id number] Physician: [place] Order #: [id number] DLP Dose#: PROCEDURE: X-RAY CHEST 2 VIEWS COMPARISON: [facility], XR, CHEST 2 VIEWS, 11/25/2019, [...] Erythrocyte distribution 13.6 11.5-15.5 % Normal 01-20 [facility] width (RBC) [Ratio] [facility] ([place]) (96747) Comment: Performed By: #### CBC, ADIF F, ANEU, BMP, GFR #### [facility] [address] [place] [address] 29875 Hematocrit (Bld) [Volume 35.6 34.0-46.0 % Normal 01-20 [facility] fraction] ([place]) (0000 0) Comment: Performed By: #### CBC, ADIF F, ANEU, BMP, GFR #### [place] [address] Hemoglobin (Bld) 11.4 12.0-16.0 G/dL Low 01-21-2020 [facility] [Mass/Vol] ([place]) (000 00) Comment: Performed By: #### CBC, ADIF F, ANEU, BMP, GFR #### [place] [address] MCH (RBC) [Entitic mass] 29.5 27.0-33.0 pg Normal 01-20 [facility] ([place]) (0000 0) Comment: Performed By: #### CBC, ADIF F, ANEU, BMP, GFR #### [place] [address] MCHC (RBC) [Mass/Vol] 32.2 32.0-36.0 G/dL Normal 01-21-20 20 [facility] ([place]) (0000 0) Comment: Performed By: #### CBC, ADIF F, ANEU, BMP, GFR #### [place] [address] MCV (RBC) [Entitic vol] 91.7 80.0-99.0 fL Normal 2019 [facility] ([place]) (0000 0) Comment: Performed By: #### CBC, ADIF F, ANEU, BMP, GFR #### [place] [address] Platelet mean volume 8.6 6.6-10.5 fL Normal 0 [facility] (Bld) [Entitic vol] ([place]) (66137) Comment: Performed By: #### CBC, ADIF F, ANEU, BMP, GFR #### [place] [id number] Platelets (Bld) [#/Vol] 250 150-450 10 3/mcL Normal 2019 [facility] ([place]) (30464) Comment: Performed By: #### CBC, ADIF F, ANEU, BMP, GFR #### [address] [address] RBC (Bld) [#/Vol] 3.88 4.10-5.30 10 6/mcL Low 01-21-2020 A [facility] ([place]) (0000 0) Comment: Performed By: #### CBC, ADIF F, ANEU, BMP, GFR #### [address] [address] WBC (Bld) [#/Vol] 6.20 4.50-10.80 10 3/mcL Normal 01-21-2020 [facility] ([place]) (19250) Comment: Performed By: #### CBC, ADIF F, ANEU, BMP, GFR #### [address] [address] cbc + diff on 01-20 Basophils (Bld) 0.10 0.00 - 0.10 x10EE3/UL Normal 01-21-2020 [facility] [#/Vol] [facility] (10989) Comment: Performed By: #### [id number] ## ## [facility],[address] [place] [address] 80355 Basophils/100 WBC (Bld) 1.1 0.0 - 2.0 % Normal 2019 [facility] ( 66663) Comment: Performed By: #### [id number] ## ## [facility],[address] [place] [address] 83084 CBC + DIFF Normal 01-21-2020 [facility] (99592) Comment: Result Comment: CBC-COMPLETE BLOOD COUNT Performed By: #### [id number] ## ## [facility],[address] [place] [address] 66704 Eosinophils (Bld) 0.40 0.00 - 0.50 x10EE3/UL Normal 01-21-2020 [facility] [place] [#/Vol] [facility] (67951) Comment: Performed By: #### [id number] ## ## [facility],[address] [place] [address] 24300 Eosinophils/100 WBC (Bld) 5.5 0.0 - 7.0 % Normal 0 [facility] ( 60982) Comment: Performed By: #### [id number] ## ## [facility],[address] [place] [address] 17325 Erythrocyte distribution 13.5 12.0 - 15.6 % Normal [facility] width (RBC) [Ratio] Hospital (92069) Comment: Performed By: #### [id number] ## ## [facility],[address] [place] [address] Hematocrit (Bld) [Volume 33.8 34.0 - 46.0 % Low [facility] fraction] [facility] ( 25533) Comment: Performed By: #### [id number] ## ## [facility],[address] [place] [address] 03375 Hemoglobin (Bld) 11.7 12.0 - 16.0 g/dl Low 01-21-2020 [facility] [Mass/Vol] [facility] (63156) Comment: Performed By: #### [id number] ## ## [facility],[address] [place] [address] 81585 Lymphocytes (Bld) 2.30 0.80 - 2.80 x10EE3/UL Normal 01-21-2020 [facility] [place] [#/Vol] [facility] ospital (24790) Comment: Performed By: #### [id number] ## ## [facility],[address] [place] [address] 72005 Lymphocytes/100 WBC (Bld) 30.4 20.0 - 45.0 % Normal [facility] ( 08824) Comment: Performed By: #### [id number] ## ## [facility],[address] [place] [address] 45500 MANUAL DIFF N/A Normal 01-21-2020 [facility] (19721) Comment: Performed By: #### [id number] ## ## [facility],[address] [place] [address] 02916 MCH (RBC) [Entitic mass] 31 27 - 33 pg Normal 01-20 [facility] ( 87131) Comment: Performed By: #### [id number] ## ## [facility],[address] [place] [address] 22219 MCHC (RBC) [Mass/Vol] 35 32 - 36 X10 3 Normal 01-21-20 20 [facility] ( 38433) Comment: Performed By: #### [id number] ## ## [facility],[address] [place] [address] 65678 MCV (RBC) [Entitic vol] 88 80 - 99 fl Normal 2019 [facility] ( 03932) Comment: Performed By: #### [id number] ## ## [facility],[address] [place] [address] 94524 Monocytes (Bld) 0.50 0.20 - 1.00 x10EE3/UL Normal 01-21-2020 [facility] [#/Vol] [facility] (13846) Comment: Performed By: #### [id number] ## ## [facility],[address] [place] [address] 16157 MONOS % 6.5 0.0 - 10.0 % Normal 01-21-2020 [facility] (38964) Comment: Performed By: #### [id number] ## ## [facility],[address] [place] [address] 57307 Morphology Adrian (Bld) [Interp] N/A Normal 01-21-2020 [facility] ( 91461) Comment: Performed By: #### [id number] ## ## [address] [address] Neutrophils (Bld) 4.30 1.50 - 7.10 x10EE3/UL Normal 01-21-2020 [facility] [place] [#/Vol] [facility] (43761) Comment: Performed By: #### [id number] ## ## [facility],[address] [place] [address] 48457 Neutrophils/100 WBC (Bld) 56.5 46.0 - 76.0 % Normal [facility] ( 18543) Comment: Performed By: #### [id number] ## ## [facility],[address] [place] [address] 26992 Platelet mean volume 8.3 6.6 - 10.5 fl Normal 01-21-20 [facility] (Bld) [Entitic vol] [facility] (01621) Comment: Result Comment: AUTOMATED DI FFERENTIAL Performed By: #### [id number] ## ## [facility],[address] [place] [address] 24011 Platelets (Bld) 298 150 - 450 x10EE3/UL Normal 01-21-2020 [facility] [#/Vol] [facility] (73243) Comment: Performed By: #### [id number] ## ## [facility],[address] [place] [address] 49886 RBC (Bld) [#/Vol] 3.82 4.10 - 5.30 x 10EE6/UL Low 0 [facility] ( 50233) Comment: Performed By: #### [id number] ## ## [facility],[address] [place] [address] 29269 WBC (Bld) [#/Vol] 7.6 4.5 - 10.8 x 10EE3/UL Normal 01-21-2020 [facility] ( 90274) Comment: Performed By: #### [id number] ## ## [facility],[address] [place] [address] 79242 bmp on 2020-01-21 Creatinine [Mass/Vol] 0.96 0.50-1.20 mg/dL Normal 01-21-20 20 [facility] ([place]) (91312) Comment: Performed By: #### CBC, ADIF F, ANEU, BMP, GFR #### [address] [address] Urea nitrogen/Creatinine 18.8 10.0-22.0 ratio Normal 01-20 [facility] [Mass ratio] [facility] ([place]) (91116) Comment: Performed By: #### CBC, ADIF F, ANEU, BMP, GFR #### [address] [address] Calcium [Mass/Vol] 8.7 8.4-10.1 mg/dL Normal 01-21-2020 [facility] ([place]) (0000 0) Comment: Performed By: #### CBC, ADIF F, ANEU, BMP, GFR #### [address] [address] Chloride [Moles/Vol] 108 98-110 mEq/L Normal 0 [facility] ([place]) (0000 0) Comment: Performed By: #### CBC, ADIF F, ANEU, BMP, GFR #### [address] [address] CO2 [Moles/Vol] 26 22-32 mEq/L Normal 01-21-2020 [facility] ([place]) (59164) Comment: Performed By: #### CBC, ADIF F, ANEU, BMP, GFR #### [address] 92782 Electrolyte Balance 4.0 4.0-15.0 mEq/L Normal 01-21-2020 [facility] ([place]) (0000 0) Comment: Performed By: #### CBC, ADIF F, ANEU, BMP, GFR #### [address] [address]794 Glucose [Mass/Vol] 85 70-110 mg/dL Normal 01-21-2020 [facility] ([place] (92393) Comment: Performed By: #### CBC, ADIF F, ANEU, BMP, GFR #### [address] [address] Potassium [Moles/Vol] 4.1 3.5-5.0 mEq/L Normal 01-21-20 20 [facility] ([place]) (0000 0) Comment: Performed By: #### CBC, ADIF F, ANEU, BMP, GFR #### [address] [address] Sodium [Moles/Vol] 138 136-145 mEq/L Normal 01-21-2020 [facility] ([place] (85037) Comment: Performed By: #### CBC, ADIF F, ANEU, BMP, GFR #### [address] [address] Urea nitrogen [Mass/Vol] 18.0 8.0-22.0 mg/dL Normal 01-20 [facility] ([place]) (33125) Comment: Performed By: #### CBC, ADIF F, ANEU, BMP, GFR #### [address] [address] .neuabs on Neutrophils (Bld) 3.50 2.25-8.10 10 3/mcL Normal 01-21-2020 [facility] [#/Vol] [facility] ([place]) (10278) Comment: Performed By: #### CBC, ADIF F, ANEU, BMP, GFR #### [address] [address] .gfr on 2020-01-21 GFR Non- >60 Normal 01-20 [facility] ([place]) (60246) Comment: Result Comment: GFR Population mean for Afri can [place]an, Non- Americans Ages 20-29 = 116 mL/min/1.73 [...] CBC, ADIF F, ANEU, BMP, GFR #### [address] [address] GFR >60 Normal 0 [facility] ([place]) (55522) Comment: Result Comment: GFR Population mean for Afri can Chilean, Non- Americans Ages 20-29 = 116 mL/min/1.73 [...] CBC, ADIF F, ANEU, BMP, GFR #### [place] [address] .auto diff on 01-20 Am[place] (P) [Mass/Vol] 0.40 0.09-1.40 10 3/mcL Normal 020 [facility] ([place]) (31195) Comment: Performed By: #### CBC, ADIF F, ANEU, BMP, GFR #### [place] [address] Basophils (Bld) 0.00 0.00-0.27 10 3/mcL Normal 01-21-2020 [facility] [#/Vol] [facility] ([place]) (35647) Comment: Performed By: #### CBC, ADIF F, ANEU, BMP, GFR #### [address] [address] Basophils/100 WBC (Bld) 0.5 0.0-2.5 % Normal 2019 [facility] ([place]) (0000 0) Comment: Performed By: #### CBC, ADIF F, ANEU, BMP, GFR #### [address] [address]893 Eosinophils (Bld) 0.30 0.00-0.65 10 3/mcL Normal 01-21-2020 [facility] [#/Vol] [facility] ([place]) (73793) Comment: Performed By: #### CBC, ADIF F, ANEU, BMP, GFR #### [address] [address] Eosinophils/100 WBC (Bld) 5.4 0.0-6.0 % Normal 05-0 -2019 [facility] ([place]) (0000 0) Comment: Performed By: #### CBC, ADIF F, ANEU, BMP, GFR #### [address] [address]149 Lymphocytes (Bld) 2.00 0.90-4.32 10 3/mcL Normal 01-21-2020 [facility] [#/Vol] [facility] ([place] (02792) Comment: Performed By: #### CBC, ADIF F, ANEU, BMP, GFR #### [address] [address] Lymphocytes/100 WBC (Bld) 32.4 20.0-40.0 % Normal - [facility] ([place]) (93827) Comment: Performed By: #### CBC, ADIF F, ANEU, BMP, GFR #### [address] [address] Monocytes/100 WBC (Bld) 6.1 2.0-13.0 % Normal 2019 [facility] ([place] (0000 0) Comment: Performed By: #### CBC, ADIF F, ANEU, BMP, GFR #### [address] [address] Neutrophils/100 WBC (Bld) 55.6 50.0-75.0 % Normal 05-0 [facility] ([place]) (64470) Comment: Performed By: #### CBC, ADIF F, ANEU, BMP, GFR #### [address] [address] cnpn on 2020-01-20 CNPN Telephone (FAMPWS) Normal 01-20-2020 [facility] [facility] ABDIFATAHSALLY TORRES ([id number]) 1980 [facility] Date Time Provider Department (96643) 01/20/20 MARCELINO MEJIA During your visit today, we recorded the following informati on about you: Christopher Carcamo RN 01/20/2020 11:54 AM Signed Patient asking if Chaz Stroud, would sent AB Rx to [facility], for her bad tooth? Her dentist in [place] is not open. Has an appt with a dentist in [place] on . Has a wound on tongue [...] rx to patricialucila. Asked for directions to [facility] for her ultrasound appt, [...] 01/20/20 progress on 2020-01 PROGRESS HNO ID: [id number] Normal 01-16-2020 [facility] Author: Isabel Romero) Hugo Lara ([id number]) Service: ? Author Type: Physician Director Supply Chain Type: Progress Notes Filed: 01/16/2020 1:43 PM [...] She c/o of daily. Attempted to call [facility] who had 1 visit with [...] negative As noted in HPI PHYSICAL EXAMINATION: [facility] 08/10/2006 Deferred physical exam as visit was [...] testing. 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 In mean time will order stress testing [...] patient = 21-30 minutes cnpn on 2020-01-16 [facility]) Normal 01-16-2020 [facility] SALLY VARGAS ([id number]) 1980 [facility] Date Time Provider Department (19989) 01/16/20 [facility] During your visit today, we recorded the following informati on about you: Sallie Benitez LPN 01/16/2020 1:47 PM Addendum Sallie Benitez LPN 01/16/2020 1:47 PM Addendum Allergies As of Date: 01/16/2020 Noted Allergy Reaction ASA (SALICYLATES) 01/27/2011 14 - Other: See Comments Comments: ulcers CONTRAST DYE (IODINE) 05/17/2008 12 - Shortness of Breath FLAGYL (METRONIDAZOLE HCL) 03/11/2010 12 - Shortness of Capac th IBUPROFEN 06/18/2016 8 - GI Upset [...] on 01/16/20 CNPN Telephone (FAMPWS) Normal 01-16-2020 [facility] [facility] SALLY VARGAS ([id number]) 1980 [place] Date Time Provider Department (43627) 01/16/20 [facility] During your visit today, we recorded [...] and/or ibuprofen for pain. Follow-up with her [facility] care physician within the next 3 [...] Chest pain This note was generated with Illumio dictation software. It m ay contain incorrect [...] on 2020-01-11 CNPN Telephone (FAMWS) Normal 01-11-2020 [facility] [facility] SALLY VARGAS ([id number]) 1980 [facility] Date Time Provider Department (49872) 01/11/20 [facility] During your visit today, we recorded [...] (METRONIDAZOLE HCL) 03/11/2010 12 - Shortness of Capac th IBUPROFEN 06/18/2016 8 - GI Upset PENICILLINS 12/07/2009 2 - Rash PREDNISONE 06/18/2016 14 - Other: See Comments Comments: makes agitated and mean Date Reviewed: 01/02/2020 Reviewed by: Ashley Lehman Ma - Fully Assessed Reason for Visit: Patient Question [1987] Reason For Visit History Recorded Prescriptions as [...] on 2020-01-09 CNPN Telephone (FAMPWS) Normal 01-09-2020 [place] SALLY [id number]) 1980 [facility] Date Time Provider Department (80733) 01/09/20 ISABEL ARIAS) [facility] During your visit [...] when taken with s eroquel 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 See if she is willing to try this combination of vitam ins until she sees Dr. Saldana. Magnesium 250MG twice a day Vit B2 200mg twice a day. Fish oil 1000mg twice a day And a liter of water daily. This combination is something dr. mejia and I recommend to a lot of our headache/migraine sufferers and has had good results from [facility]. MAYA Delgado Ma 01/09/2020 11:49 AM Signed [...] Encounter Status:Closed by ISABEL WARE on 01/09/20 [facility] Normal 01-09-2020 [place] SALLY Martinez ([id number]) 1980 [facility] Date Time Provider Department ([id number]) 01/09/20 [facility] During your visit today, we recorded [...] flexeril. Patien t says she cannot take [place] because she is on ok Seroquel and [...] dentist and she said no dentist in [facility] can see her because of her insurance . She tried [place] because they accepted her insurance but they [...] seen by ER or UC, then at [facility] they can see/check for signs of [...] she has called every dentist office in [place] and now [place] and no one takes her insurance. She said she called her insurance and they told her the only one was the one in [place]. I told her if her infection is that bad she needs to go back to ER for further evaluation. Patient then just keep saying I have no way of getting there; no family can take her; she has no money to pay to get there. Patient ended call. I did call Dr. Evans's office oral surgeon [phone] and they are open from 8-3 after day to see patient's and [facility]. They were currently closed but wanting [...] *Final Report* * * Normal [facility] AP/LAT DATE OF EXAM: Jan 06 2020 12:58PM [place] ([id number]) WOX 5262 - XR THORACIC 2V AP/LAT [...] delon destructive process. IMPRESSION: Negative thoracic spine. Pecan Mallow Dipper: [facility] Transcribe Date/Time: Jan 06 2020 1:02P Dictated by : NIDA VILLALOBOS MD This examination was interpreted and the report reviewed and electronically signed by: NIDA VILLALOBOS MD on Jan 06 2020 1:07PM EST [id number] xr cervical 3v ap/lat/odon on 2020-01-06 XR CERVICAL 3V * * *Final Report* * * Normal [facility] AP/LAT/ODON DATE OF EXAM: Jan 06 2020 12:58PM [place] WOX 5309 - XR CERVICAL 3V AP/LAT/ODON / 3 (07355) PROCEDURE REASON: Fall, initial encounter * * [...] tissues are normal. IMPRESSION: Negative cervical spine. Pecan Mallow Dipper: [facility] Transcribe Date/Time: Jan 06 2020 1:00P Dictated by : NIDA VILLALOBOS MD This examination was interpreted and the report reviewed and electronically signed by: NIDA VILLALOBOS MD on Jan 06 2020 1:04PM EST [id number] progress on 2019-12 PROGRESS HNO ID: [id number] Normal 01-06-2020 [facility] Author: Vianey Sanchez (Tech) [place] ([id number]) Service: ? Author Type: [employer] Scout Type: Progress Notes Filed: 01/06/2020 12:58 PM [...] on 2020-01-06 CNPN Telephone (ASHIAWS) Normal 01-06-2020 [place] [facility] SALLY VARGAS ([id number]) 1980 [facility] Date Time Provider Department (91146) 01/06/20 MARCELINO MEJIAWS During your visit today, we recorded the following informati on about you: Deepa Salvador LPN, DAVID 01/06/2020 11:41 AM Signed Pt calls states fell a day ago and went to [facility] they gave h er 10 vicodin, [...] encounter [W19.XXXA] Order(s):XR THORACIC LIMITED 2V AP/LAT [[id number]] Order #: [id number] FUTURE XR CERV INJURY 3V AP/LAT/ODON [[id number]] Order #: [id number] FUTURE Prescriptions as of 01/06/2020 Sig: SERTRALINE [...] on 01/06/20 CNPN Telephone (FAMWS) Normal 01-06-2020 [place] [facility] SALLY VARGAS ([id number]) 1980 [facility] Time Provider Department (84124) 01/06/20 MARCELINO MEJIA During your visit today, [...] 01/06/20 progress on 2019-12 PROGRESS HNO ID: [id number] Normal 01-05-2020 [facility] Author: Isabel Romero) Hugo Lara ([id number]) Service: ? Author Type: Physician Director Supply Chain Type: Progress Notes Filed: 01/05/2020 8:07 AM [...] minutes progress on 2019-12 PROGRESS HNO ID: [id number] Normal 01-02-2020 [facility] Author: Marie Mary) [facility] ([id number]) Service: ? Author Type: Nurse Practitioner Type: [...] liver cyst 05/24/[address] [facility] 11/2009 and 04/2010 showe 4 mm increase in size . No pain. No elevated LFTs on 03/11/2010. - Calculus of kidney 05/17/[address] Nicolas: Hospitalized age 20, and again later -- no procedures so far ([facility], [facility], [address] [facility]) - Dysmenorrhea - Impaired fasting glucose [...] Approx. 3 cigarettes daily-1 pack every w [place] Substance Use Topics - Alcohol use: Yes [...] 300 MG CAPSULE Agrees to plan Marie Pineod APRN.CNP cnov on 2020-01-02 CNOV Office Visit (UCWSTR) Normal 01-02-20 [place] SALLY Martinez ([id number]) 1980 [facility] Date Time Provider Department (05745) 01/02/20 2:45 PM MARIE PINEDO (MANUELITO) WSTR [...] liver cyst 05/24/[address] [facility] 11/2009 and 04/2010 showe 4 mm increase in size . No pain. No elevated LFTs on 03/11/2010. - Calculus of kidney 05/17/[address] Nicolas: Hospitalized age 20, a nd again later -- no procedures so far ([facility], [facility], [address] [facility]) - Dysmenorrhea - Impaired fasting glucose [...] removed - TOTAL ABDOM HYSTERECTOMY 08/31/06 Hysterectomy, [facility] ALLERGIES Asa [Salicylates]; Contrast Dye [Iodine]; Flagyl [...] Approx. 3 cigarettes daily-1 pack every w [place] Substance Use Topics - Alcohol use: Yes [...] MG CAPSULE Agrees to plan Marie Pinedo APRN.OPENSTACK CLOUD CONSULTING ARCHITECT Referring Provider: SELF [200] Allergies As of [...] PINEDO CNP on 01/02/20 cnpn on 2019-12-23 [facility] ([facility]) Normal 12-23-2019 [place] [facility] SALLY VARGAS ([id number]) 1980 F [place] Date Time Provider Department (96253) 12/23/19 ISABEL ARIAS) RAMA During your visit [...] not helping cough. Please advise and call [phone]. [facility] ISABEL ARIAS PA-C 12/23/2019 1:02 PM [...] Report* * * Normal 12-21 [facility] FRONTAL/LAT DATE OF EXAM: Dec 22 2019 9:28AM [place] WOX 5291 - XR CHEST 2V FRONTAL/LAT / ([id number]) PROCEDURE REASON: multiple diagnoses * * * [...] clips noted. IMPRESSION: No acute radiographic abnormality. Pecan Mallow Dipper: [facility] Transcribe Date/Time: Dec 22 2019 9:29A Dictated by : NIDA VILLALOBOS MD This examination was interpreted and the report reviewed and electronically signed by: NIDA VILLALOBOS MD on Dec 22 2019 9:51AM EST [id number] progress on 2019-12 PROGRESS HNO ID: [id number] Normal 12-22-2019 [facility] Author: Vianey Roman (Rt) [place] ([id number]) Service: ? Author Type: [employer] Scout Type: Progress Notes Filed: 12/22/2019 9:28 AM [...] 22, 2019 9:18 AM cnpn on 2019-12-22 [facility] (FAMPWS) Normal 12-22-2019 [place] [facility] SALLY VARGAS ([id number]) 1980 [facility] Time Provider Department (12581) 12/22/19 [facility]EL ARIAS) [facility] During your visit today, we recorded the following informati on about you: ISABEL ARIAS PA-C 12/22/2019 9:56 AM Signed Let patient know that xray is negative. Recommend cont inuing as we discussed yesterday. MAYA Delgado Lacing Cutter 12/22/2019 10:42 AM Signed Patient notified and verbalized understanding Ashley Mcfarland Lacing Cutter Allergies As of Date: 12/22/2019 Noted Allergy [...] 12/22/19 progress on 2019-12 PROGRESS HNO ID: [id number] Normal 12-21-2019 [facility] Author: Isabel Romero) Hugo Lara ([id number]) Service: ? Author Type: Physician Director Supply Chain Type: Progress Notes Filed: 12/21/2019 12:48 PM [...] on 2019-12-15 CNPN Telephone (FAMPWS) Normal 12-15-2019 [place] [facility] SALLY VARGAS ([id number]) 1980 [facility] Date Time Provider Department (61913) 12/15/19 ISABEL ARIAS) [facility] During your visit today, we recorded the following informati on about you: Melanie Swenson SOFTWARE ENGINEER [employer] 12/15/2019 11:15 AM Signed Patient calling every time takes the [place] zonatate she gets nauseated, asking if could have zofran or phenergan rx? Patient said the pe rles help she does not cough, she tries eating first and still makes her nauseated. Patient uses [facility] for her pharmacy. Please advise ISABEL [...] Status:Closed by MILKA VILLARREAL MA on 12/15/19 [facility] 2019-12-14 [facility] (INTMWS) Normal 12-14-2019 [place] [facility] SALLY VARGAS ([id number]) 1980 [facility] Date Time Provider Department (34110) 12/14/19 ISABEL ARIAS (MAYA) IN[facility] During your visit today, we recorded the following informati on about you: Gale Fuentes LPN 12/14/2019 10:15 AM Signed Patient took 1 dose of Robitussin AC, di d help suppress cough but developed an itchy/rash. Asking if something else can be called in to [facility]. Patient uses [facility]. Please notify Patient. Gale [...] on 12/14/19 CNPN Telephone (FAMPWS) Normal 12-14-2019 [place] [facility] SALLY VARGAS ([id number]) 1980 [facility] Date Time Provider Department (96599) 12/14/19 ISABEL ARIAS) RAMA During your visit [...] not want to listen. Please advise Yvette AIRAS PA-C 12/14/2019 12:22 PM Signed Please let [...] (METRONIDAZOLE HCL) 03/11/2010 12 - Shortness of Capac th IBUPROFEN 06/18/2016 8 - GI Upset [...] 12/14/19 progress on 2019-11 PROGRESS HNO ID: [id number] Normal 12-13-2019 [facility] Author: Isabel (PaRex) Hugo Lara ([id number]) Service: ? Author Type: Physician Director Supply Chain Type: Progress Notes Filed: 12/13/2019 10:36 AM [...] liver cyst 05/24/[address] [facility] 11/2009 and 04/2010 showe 4 mm increase in size . No pain. No elevated LFTs on 03/11/2010. - Calculus of kidney 05/17/[address] Nicolas: Hospitalized age 20, and again later -- no procedures so far ([facility], [facility], [address] [facility]) - Dysmenorrhea - Impaired fasting glucose [...] Approx. 3 cigarettes daily-1 pack every w [place] Substance Use Topics - Alcohol use: Yes [...] (COVID-19). emergency report on 2019-11-26 EMERGENCY REPORT [facility] Normal 11-25 [facility] EMERGENCY ROOM REPORT ([id number]) NAME ACCOUNT SEX AGE ADMIT DISCHARGE PT MED. RECORD# NUMBER DATE DATE HIEU VARGAS [id number] Don[place] 39 11/24/19 11/25/19 [place] ZHENG [id number] ROOM: ER DATE OF : 1980 DICTATING [...] review of her constipation regimen at [facility]. She verbalized understanding of the informa tion given and agreed to plan. She was discharged in stable condition. Dictated By: Ana Rodriguez MD 11/25/19 05:37 JOB #: [id number] Transcribed By: nallely 11/25/19 22:11 Electronically signed by: Jennifer Perez MD 11/25/19 22:39 Page 2 of 2 SALLY VARGAS Emergency Room Report urinalysis with microscopy on 2019-11-25 Amorphous NONE Normal 11-25-2019 [facility] (47594) Comment: Performed By: #### [id number] ## ## [facility],[address] [place] [address] 90000 Bacteria LM.HPF (Urine sed) 4+ Normal [facility] [#/Area] [facility] ( 10603) Comment: Performed By: #### [id number] ## ## [facility],[address] [place] [address] 47099 Bilirubin [Mass/Vol] NEG NORMAL: NEGATIVE mg/dL Normal [facility] ospital (98876) Comment: Performed By: #### [id number] ## ## [facility],[address] [place] [address] 45837 Blood 10 NORMAL: NEGATIVE Abnormal 11-25-2019 [facility] (91287) Comment: Performed By: #### [id number] ## ## [facility],[address] [place] [address] 85314 Casts LM.LPF (Urine sed) NONE Normal 11-24 [facility] [/Area] [facility] ( 67022) Comment: Performed By: #### [id number] ## ## [facility],[address] [place] [address] 49632 Clarity (U) sl.cloudy NORMAL: CLEAR Normal 11-25-2019 [facility] ( 44970) Comment: Performed By: #### [id number] ## ## [facility],[address] [place] [address] 34965 Color (U) p.yel NORMAL: YELLOW Normal 11-25-2019 [facility] (77714) Comment: Performed By: #### [id number] ## ## [facility],[address] [place] [address] 57309 Crystals LM Nom (Urine sed) NONE Normal [facility] ( 24071) Comment: Performed By: #### [id number] ## ## [facility],[address] [place] [address] 39276 Epi Cells MANY Normal 11-25-2019 [facility] (84055) Comment: Performed By: #### [id number] ## ## [facility],[address] [place] [address] 37097 Glucose [Mass/Vol] NORM NORMAL: NORMAL Normal 2019 [facility] ( 21893) Comment: Performed By: #### [id number] ## ## [facility],[address] [place] [address] 21696 Ketone NEG NORMAL: NEGATIVE Normal 11-25-2019 [facility] (48450) Comment: Performed By: #### [id number] ## ## [facility],[address] [place] [address] 89730 Mucous NONE Normal 11-25-2019 [facility] (92261) Comment: Performed By: #### [id number] ## ## [facility],[address] [place] [address] 73555 Nitrite Ql (U) NEG NORMAL: NEGATIVE Normal 11-25-19 20 [facility] ( 17430) Comment: Performed By: #### [id number] ## ## [facility],[address] [place] [address] 36253 pH (Bld) 5 NORMAL: 5.0-8.0 Normal 11-25-2019 [facility] (05689) Comment: Performed By: #### [id number] ## ## [facility],[address] [place] [address] 57853 Protein (U) NEG NORMAL: NEGATIVE mg/dL Normal 11-25-2019 [facility] [Mass/Vol] [facility] (54800) Comment: Performed By: #### [id number] ## ## [facility],[address] [place] [address] 80104 Rbc 0-5 0-3 / hpf Normal 11-25-2019 [facility] (90327) Comment: Performed By: #### [id number] ## ## [facility],[address] [place] [address] 44081 Sp [place] 1.010 NORMAL: 1.010-1.030 Normal 0 [facility] ( 97935) Comment: Performed By: #### [id number] ## ## [facility],[address] [place] [address] 60661 Specimen type Nom (Spec) UNSPECIFIED Normal [facility] ( 92912) Comment: Performed By: #### [id number] ## ## [facility],[address] [place] [address] 24705 URINALYSIS WITH MICROSCOPY Normal [facility] (37849) Comment: Result Comment: URINALYSIS Performed By: #### [id number] ## ## [facility],[address] [facility] 84045 Urobilinog NORM NORMAL: NORMAL Normal 11-25-2019 [facility] (12043) Comment: Performed By: #### [id number] ## ## [facility],[address] [facility] 59536 Wbc 1-5 0-5 / hpf Normal 11-25-2019 [facility] (84945) Comment: Performed By: #### [id number] ## ## [facility],[address] [place] [address] 75502 WBC (Bld) [#/Vol] 25 NORMAL: NEGATIVE Abnormal 11-24 [facility] ( 08458) Comment: Result Comment: URINE MICROS COPIC Performed By: #### [id number] ## ## [facility],[address] [place] [address] 67252 Yeast LM Ql (Urine sed) NONE Normal 2019 [facility] (50596) Comment: Performed By: #### [id number] ## ## [facility],[address] [place] [address] 30403 lipase on 2019-11-13 3 Lipase [Catalytic 34.0 18.0 - 51.0 U/L Normal 11-25-2019 [facility] activity/Vol] [facility] (92288) Comment: Performed By: #### [id number] ## ## [facility],[address] [place] [address] 62563 lactate on Lactate [Moles/Vol] 0.9 0.5 - 2.0 mmol/L Normal 11-25-2019 [facility] ( 08511) Comment: Performed By: #### [id number] ## ## [facility],[address] [place] [address] abdomen/pelvis wo on 2019-11-25 CT ABDOMEN/PELVIS [facility] Normal 0 11-25-[address] [facility] ospital [address] [address] (43764) Patient: SALLY VARGAS Phone#: : 1980 Age: 39 Gender: F Pt. Type: ER Account: [id number] Location: 2 Ordering: DR. ANA RODRIGUEZ Exam Date: 11/25/2019/0:04 Family Phys: ISABEL ARIAS Charge Code: [id number] Physician: [place] Order #: [id number] DLP Dose#: PROCEDURE: CT ABDOMEN/PELVIS WITHOUT CONTRAST COMPARISON: [facility], CT, ABDOMEN/PELVIS W/O CON, 03/22/2019, [...] 39 Gender: F Pt. Type: ER Account: [id number] Location: 052 Ordering: DR. ANA RODRIGUEZ Exam Date: 11/25/2019/0:04 Family Phys: ISABEL ARIAS Charge Code: [id number] Physician: [place] Order #: [id number] DLP Dose#: ABDOMINAL WALL: There is a [...] on 11/25/2019 at 10:46 cnpn on 2019-11-25 [facility] (FAMP[facility]) Normal 11-25-2019 [place] [facility] SALLY VARGAS ([id number]) 1980 [facility] Time Provider Department (04381) 11/25/19 JAY ARIAS) [facility] During your visit today, we recorded [...] Age - Reported 39 years Normal 11-25-2019 [facility] (20670) Comment: Performed By: #### [id number] ## ## [address] [address] Albumin [Mass/Vol] 4.5 3.4 - 4.8 g/dL Normal 11-25-2019 [facility] ( 03854) Comment: Performed By: #### [id number] ## ## [facility],[address] [place] [address] 26810 Albumin/Globulin [Mass 1.3 0.9 - 1.6 {ratio} Normal 020 [facility]] [facility] (80551) Comment: Performed By: #### [id number] ## ## [facility] [facility] 70452 ALK PHOS 93 38 - 126 U/L Normal 11-25-2019 [facility] (20897) Comment: Performed By: #### [id number] ## ## [facility] [facility] 41075 ALT/SGPT 10 8 - 35 U/L Normal 11-25-2019 [facility] (41257) Comment: Performed By: #### [id number] ## ## [facility],1 [facility] 73919 Anion gap [Moles/Vol] 13 10 - 20 mmol/L Normal 11-25-19 20 [facility] ( 15635) Comment: Performed By: #### [id number] ## ## [facility] [facility] 98266 AST/SGOT 9 13 - 39 U/L Low 11-25-2019 [facility] (68606) Comment: Performed By: #### [id number] ## ## [facility],[address] [place] [address] 76193 B/C RATIO 17 0 - 30 ratio Normal 11-25-2019 [facility] (96451) Comment: Performed By: #### [id number] ## ## [facility],[address] [facility] 61395 Bilirubin [Mass/Vol] 0.4 0.0 - 1.5 mg/dl Normal 0 [facility] ( 57496) Comment: Performed By: #### [id number] ## ## [facility],[address],[place] [address] Calcium [Mass/Vol] 9.9 8.6 - 10.2 mg/dl Normal 11-25-2019 [facility] ( 01699) Comment: Performed By: #### [id number] ## ## [facility],[address] [facility] 80850 Chloride [Moles/Vol] 103 98 - 107 mmol/L Normal 0 [facility] ( 89179) Comment: Performed By: #### [id number] ## ## [facility],[address] [facility] 36118 CO2 [Moles/Vol] 24.9 21.0 - 31.0 mmol/L Normal 11-25-[address] [facility] ( 24000) Comment: Performed By: #### [id number] ## ## [facility],[address] [place] [address] 15112 Creatinine [Mass/Vol] 1.0 0.6 - 1.2 mg/dl Normal 11-25-19 20 [facility] ( 94182) Comment: Performed By: #### [id number] ## ## [facility],[address] [place] [address] 60656 GFR/1.73 sq M predicted among Normal 11-25-2019 [facility] non-blacks MDRD (S/P/Bld) [Vol Hospital (27979) rate/Area] Comment: Result Comment: COMPREHENSIV E METABOLIC PANEL Performed By: #### [id number] ## ## [facility],[address] [place] [address] 48007 GFR/1.73 sq M >60 60 - 999 mL/min/{1.73_m2} Normal 0 [facility] predicted among [facility] non-blacks MDRD (000 00) (S/P/Bld) [Vol rate/Area] Comment: Performed By: #### [id number] ## ## [facility],[address] [place] [address] 57549 Result Comment: ACCORDING TO THE NATIONAL KIDNEY [...] 3.5 1.5 - 3.8 G/DL Normal 2019 [facility] ( 46525) Comment: Performed By: #### [id number] ## ## [facility],[address] [place] [address] 56511 Glucose [Mass/Vol] 123 74 - 106 mg/dl High 11-25-2019 [facility] (87818) Comment: Performed By: #### [id number] ## ## [facility],[address] [place] [address] 92973 Potassium [Moles/Vol] 3.6 3.5 - 5.1 mmol/L Normal 11-25-19 [facility] ( 66147) Comment: Performed By: #### [id number] ## ## [facility],[address] [place] [address] [place] [address] Protein [Mass/Vol] 8.0 6.4 - 8.3 g/dl Normal 11-25-2019 [facility] ( 58952) Comment: Performed By: #### [id number] ## ## [facility],[address] [place] [address] 35789 Sodium [Moles/Vol] 137 136 - 145 mmol/l Normal 11-25-2019 [facility] ( 39650) Comment: Performed By: #### [id number] ## ## [facility],[address] [place] [address] 99251 Urea nitrogen [Mass/Vol] 17 6 - 20 mg/dl Normal 11-24 [facility] ( 19300) Comment: Performed By: #### 675156 ## ## [facility],[address] [place], [place] [id number] chest 2 views on 20 01-12-12 CHEST 2 VIEWS [facility] Normal 11-25-19 [facility] [address] [place] [address] (86500) Patient: SALLY VARGAS Phone#: : 1980 Age: 39 Gender: F Pt. Type: ER Account: [id number] Location: [facility] Ordering: DR. ANA RODRIGUEZ Exam Date: 11/25/2019/0:08 Family Phys: ISABEL ARIAS Charge Code: [id number] Physician: [place] Order #: [id number] DLP Dose#: PROCEDURE: X-RAY CHEST 2 VIEWS COMPARISON: [facility], XR, CHEST PA/LAT, 05/12/2017, 16:14. [...] CELL COUNT 100 Normal 11-25-2019 [facility] (01583) Comment: Performed By: #### [id number] ## ## [facility],[address] [place], [place] [id number] EO 1.0 0.0 - 4.0 % Normal 11-25-2019 [facility] (74377) Comment: Performed By: #### [id number] ## ## [facility],[address] [place] [address] SEGS 59 50 - 70 % Normal 11-25-2019 [facility] (96092) Comment: Performed By: #### [id number] ## ## [facility],[address] [place] [address] 27965 CBC + DIFF Normal 11-25-2019 [facility] (51123) Comment: Result Comment: CBC-COMPLETE BLOOD COUNT Performed By: #### [id number] ## ## [facility],[address] [place] [address] 60342 Erythrocyte distribution 13.4 12.0 - 15.6 % Normal [facility] (RBC) [Ratio] Hospital (99638) Comment: Performed By: #### [id number] ## ## [facility] [facility],[address] [place] [address] 11628 Hematocrit (Bld) [Volume 32.5 34.0 - 46.0 % Low [facility] fraction] [facility] ( 35908) Comment: Performed By: #### [id number] ## ## [facility],[address] [place] [address] 68239 Hemoglobin (Bld) 11.4 12.0 - 16.0 g/dl Low 11-25-2019 [facility] [Mass/Vol] [facility] (95203) Comment: Performed By: #### [id number] ## ## [facility],[address] [place] [address] 89199 Lymphocytes/100 WBC (Bld) 40 20 - 40 % Normal 11-12 [facility] ( 13864) Comment: Performed By: #### [id number] ## ## [facility],[address] [place] [address] 07904 MANUAL DIFF SEE BELOW Normal 11-25-2019 [facility] (39183) Comment: Performed By: #### [id number] ## ## [facility],[address] [place] [address] 91566 MCH (RBC) [Entitic mass] 31 27 - 33 pg Normal 11-24 [facility] ( 55250) Comment: Performed By: #### [id number] ## ## [facility],[address] [place] [address] 81675 MCHC (RBC) [Mass/Vol] 35 32 - 36 X10 3 Normal 11-25-19 20 [facility] ( 35308) Comment: Performed By: #### [id number] ## ## [facility],[address] [place] [address] 21499 MCV (RBC) [Entitic vol] 88 80 - 99 fl Normal 2019 [facility] ( 41143) Comment: Performed By: #### [id number] ## ## [facility],[address] [place] [address] 67150 Morphology Adrian (Bld) REVIEWED Normal 0 [facility] [Inter] [facility] ( 74775) Comment: Performed By: #### [id number] ## ## [facility],[address] [place] [address] 25452 Platelet mean volume 9.1 6.6 - 10.5 fl Normal 11-25-19 20 [facility] ([facility]) [Entitic vol] [facility] (55735) Comment: Result Comment: AUTOMATED DI FFERENTIAL Performed By: #### [id number] ## ## [facility],[address] [place] [address] 92798 Platelets (Bld) 268 150 - 450 x10EE3/UL Normal 11-25-2019 [facility] [#/Vol] [facility] (52197) Comment: Performed By: #### [id number] ## ## [facility],[address] [place] [address] 00308 RBC (Bld) [#/Vol] 3.69 4.10 - 5.30 x 10EE6/UL Low 0 [facility] ( 86305) Comment: Performed By: #### [id number] ## ## [facility],[address] [facility] 47949 WBC (Bld) [#/Vol] 11.4 4.5 - 10.8 x 10EE3/UL High 11-25-2019 [facility] ( 68159) Comment: Performed By: #### [id number] ## ## [facility],[address] [facility] 63379 tsh on 2019-11-24 TSH Qn 3.920 0.270-4.200 uU/mL Normal 11-24-2019 [facility] (05498) Comment: Result Comment: If the patie nt [...] et al. 2017 Guide lines of the [place] Thyroid Association for the Diagnosis and Management of Thyroid Disease during and the . Thyroid, 2017:27:3:315-389. Performed By: #### TSH, CBCD IF, CMP #### [facility] [address] [place] [address] troponin t on 11-23 Troponin T.cardiac Test sent to 0.000-0.029 Normal 2019 [facility] [Mass/Vol] [facility] (21025) [facility]. Comment: Result Comment: Account Cred ited HIDE progress on 2019-11 PROGRESS HNO ID: [id number] Normal 11-24-2019 [facility] Author: Jay) Hugo Lara ([id number]) Service: ? Author Type: Physician Director Supply Chain Type: Progress Notes Filed: 11/24/2019 9:33 AM [...] liver cyst 05/24/[address] [facility] 11/2009 and 04/2010 showe 4 mm increase in size . No pain. No elevated LFTs on 03/11/2010. - Calculus of kidney 05/17/[address] Nicolas: Hospitalized age 20, and again later -- no procedures so far ([facility], [facility], [address] [facility]) - Dysmenorrhea - Impaired fasting glucose [...] Approx. 3 cigarettes daily-1 pack every w [place] Substance Use Topics - Alcohol use: Yes [...] 50% of visit spent in counseling. ISABEL ARAIS PA-C d dimer on D dimer Test sent to Ash <500 Normal 0 [facility]. (48690) Comment: Result Comment: Account Cred ited HIDE comp metabolic panel on 2019-11-24 Albumin [Mass/Vol] 4.4 3.9-4.9 g/dL Normal 11-24-2019 [facility] (37093) Comment: Performed By: #### TSH, CBCD IF, CMP #### [facility] [address] [place], [place] [id number] ALP [Catalytic activity/Vol] 105 34-123 U/L Normal 0 11-24-2019 [facility] (06462) Comment: Performed By: #### TSH, CBCD IF, CMP #### [facility] [address] [place], [place] [address] ALT [Catalytic activity/Vol] 6 7-38 U/L Low 0 11-24-2019 [facility] (73357) Comment: Performed By: #### TSH, CBCD IF, CMP #### [facility] [address] [place], [place] [address] Anion gap [Moles/Vol] 12 9-18 mmol/L Normal 11-24-19 20 [facility] (85874) Comment: Performed By: #### TSH, CBCD IF, CMP #### [facility] [address] [place], [place] [address] AST [Catalytic activity/Vol] 14 13-35 U/L Normal 0 11-24-2019 [facility] (75332) Comment: Performed By: #### TSH, CBCD IF, CMP #### [facility] [address] [place], [place] [address] Bilirubin [Mass/Vol] 0.4 0.2-1.3 mg/dL Normal 0 [facility] (06542) Comment: Performed By: #### TSH, CBCD IF, CMP #### [facility] [address] [place], [place] [address] Calcium [Mass/Vol] 9.9 8.5-10.2 mg/dL Normal 11-24-2019 [facility] (95402) Comment: Performed By: #### TSH, CBCD IF, CMP #### [facility] [address] [place], [place] [address] Chloride [Moles/Vol] 101 97-105 mmol/L Normal 0 [facility] (21455) Comment: Performed By: #### TSH, CBCD IF, CMP #### [facility] [address] [place], [place] [address] CO2 [Moles/Vol] 23 22-30 mmol/L Normal 11-24-2019 [facility] (32413) Comment: Performed By: #### TSH, CBCD IF, CMP #### [facility] [address] [place], [place] [address] Creatinine [Mass/Vol] 0.93 0.58-0.96 mg/dL Normal 11-24-19 20 [facility] (61154) Comment: Performed By: #### TSH, CBCD IF, CMP #### [facility] [address] [place], [place] [address] eGFR- Amer. >60 Normal 11-24-2019 [facility] (92444) Comment: Performed By: #### TSH, CBCD IF, CMP #### [facility] [address] [place], [place] [address] GFR/1.73 sq M predicted >60 mL/min/{1.73_m2} Normal 11-24-2019 [facility] among non-blacks MDRD [place] (14363) (S/P/Bld) [Vol rate/Area] Comment: Result Comment: eGFR [...] By: #### TSH, CBCD IF, CMP #### [facility] [address], [place] [address] Glucose [Mass/Vol] 98 74-99 mg/dL Normal 11-24-2019 [facility] (70324) Comment: Result Comment: The [place] Diabetes Association (ADA) provides guidance for cutoff [...] for diagnosis of diabetes. Reference: Standards of [facility] Care in Diabetes 2016, [place] Diabetes Association. Diabetes Care. 2016.39(Suppl 1). Performed By: #### TSH, CBCD IF, CMP #### [facility] [address] [place], [place] [address] Potassium [Moles/Vol] 4.1 3.7-5.1 mmol/L Normal 11-24-19 [facility] (20487) Comment: Performed By: #### TSH, CBCD IF, CMP #### [facility] [address] [place], [place] [address] Protein [Mass/Vol] 7.6 6.3-8.0 g/dL Normal 11-24-2019 [facility] (76835) Comment: Performed By: #### TSH, CBCD IF, CMP #### [facility] [address] [place], [place] [address] Sodium [Moles/Vol] 136 136-144 mmol/L Normal 11-24-2019 [facility] (35022) Comment: Performed By: #### TSH, CBCD IF, CMP #### [facility] [address] [place], [place] [address] Urea nitrogen [Mass/Vol] 21 7-21 mg/dL Normal 11-23 [facility] (77986) Comment: Performed By: #### TSH, CBCD IF, CMP #### [facility] [address] [place], [place] [address] cnpn on 2019-11-24 [facility] Normal 11-24-2019 [place] [facility] SALLY VARGAS ([id number]) 1980 [facility] Date Time Provider Department (90319) 11/24/19 [facility] During your visit today, we recorded the following informati on about you: Yvette Taylor RN 11/24/2019 12:00 PM Signed Aidee from [facility] lab called, verified pt by name [...] (METRONIDAZOLE HCL) 03/11/2010 12 - Shortness of Capac th IBUPROFEN 06/18/2016 8 - GI Upset [...] on 11/24/19 CNPN Telephone (FAMWS) Normal 11-24-2019 [place] SALLY Martinez ([id number]) 1980 F [place] Date Time Provider Department (12151) 11/24/19 [facility] During your visit today, we recorded [...] Status:Closed by VALENTE BRUCE MA on 11/24/19 [facility] Telephone (FAMPWS) Normal 11-24-2019 [place] SALLY Martinez ([id number]) 1980 [facility] Date Time Provider Department (29234) 11/24/19 JAY ARIAS) ASHIAWS During your visit today, we recorded the following informati on about you: Lorenzo Vu 11/24/2019 12:40 PM Signed 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 If so please fax to [employer] fax [phone]. ISABEL ARIAS PA-C 11/24/2019 1:00 PM Signed [...] (FAMPWS) Normal 11-24-19 [facility] SALLY VARGAS ([id number]) 1980 F [place] Date Time Provider Department (34341) 11/24/19 9:20 AM JAY ARIAS) RAMA During [...] liver cyst 05/24/[address] [facility] 11/2009 and 04/2010 showe 4 mm increase in size . No pain. No elevated LFTs on 03/11/2010. - Calculus of kidney 05/17/[address] Nicolas: Hospitalized age 20, a nd again later -- no procedures so far ([facility], [facility], [address] [facility]) - Dysmenorrhea - Impaired fasting glucose [...] Approx. 3 cigarettes daily-1 pack every w [place] Substance Use Topics - Alcohol use: Yes [...] (METRONIDAZOLE HCL) 03/11/2010 12 - Shortness of Capac th IBUPROFEN 06/18/2016 8 - GI Upset [...] Order(s):CONSULT TO [facility] [[id number]] Order #: [id number]: 1 levoFLOXacin (LEVAQUIN) 500 mg tabletTake 1 [...] Abs Baso 0.06 <0.11 k/uL Normal 11-24-2019 [facility] (24643) Comment: Performed By: #### TSH, CBCD IF, CMP #### [facility] [address] [place], [place] [address] Abs Woodward 0.43 <0.87 k/uL Normal 11-24-2019 [facility] (84443) Comment: Performed By: #### TSH, CBCD IF, CMP #### [facility] [address] [place], [place] [address] Abs Neut 5.59 1.45-7.50 k/uL Normal 11-24-2019 [facility] (80973) Comment: Performed By: #### TSH, CBCD IF, CMP #### [facility] [address] [place], [place] [address] Absolute nRBC <0.01 <0.01 Normal 11-24-2019 [facility] (22123) Comment: Performed By: #### TSH, CBCD IF, CMP #### [facility] [address] [place], [place] [address] Basophils/100 WBC (Bld) 0.7 % Normal 2019 [facility] (21124) Comment: Performed By: #### TSH, CBCD IF, CMP #### [facility] [address] [place] [address] DTYPE Auto Diff Normal 11-24-2019 [facility] (61807) Comment: Performed By: #### TSH, CBCD IF, CMP #### [place] [address] Eosinophils (Bld) [#/Vol] 0.34 <0.46 k/uL Normal 11-12 [facility] (15432) Comment: Performed By: #### TSH, CBCD IF, CMP #### [facility] [address] [place], [place] [address] Eosinophils/100 WBC (Bld) 3.7 % Normal 11-12 [facility] (62998) Comment: Performed By: #### TSH, CBCD IF, CMP #### [facility] [address] [place] [address] Erythrocyte distribution 13.1 11.5-15.0 % Normal 11-23 [facility] width (RBC) [Ratio] [place] (93489) Comment: Performed By: #### TSH, CBCD IF, CMP #### [facility] [address] [place], [place] [address] Hematocrit (Bld) [Volume 38.1 36.0-46.0 % Normal 11-23 [facility] fraction] [place] (29862) Comment: Performed By: #### TSH, CBCD IF, CMP #### [facility] [address] [place], [place] [address] Hemoglobin (Bld) 11.7 11.5-15.5 g/dL Normal 11-24-2019 [facility] [Mass/Vol] [place] (91401) Comment: Performed By: #### TSH, CBCD IF, CMP #### [facility] [address] [place] [address] Lymphocytes (Bld) [#/Vol] 2.69 1.00-4.00 k/uL Normal 11-12 [facility] (15517) Comment: Performed By: #### TSH, CBCD IF, CMP #### [facility] [address] [place] [address] Lymphocytes/100 WBC (Bld) 29.5 % Normal 11-12 [facility] (95139) Comment: Performed By: #### TSH, CBCD IF, CMP #### [facility] [place], [place] [address] MCH (RBC) [Entitic mass] 29.3 26.0-34.0 pG Normal 11-23 [facility] (09011) Comment: Performed By: #### TSH, CBCD IF, CMP #### [facility] [place] [address] MCHC (RBC) [Mass/Vol] 30.7 30.5-36.0 g/dL Normal 11-24-19 20 [facility] (67787) Comment: Performed By: #### TSH, CBCD IF, CMP #### [facility] [address] [place] [address] MCV (RBC) [Entitic vol] 95.3 80.0-100.0 fL Normal 11-23 [facility] (64493) Comment: Performed By: #### TSH, CBCD IF, CMP #### [facility] [address] [place], [place] [address] Monocytes/100 WBC (Bld) 4.7 % Normal 2019 [facility] (76306) Comment: Performed By: #### TSH, CBCD IF, CMP #### [facility] [address] [place], [place] [address] Neutrophils/100 WBC (Bld) 61.4 % Normal 11-12 [facility] (00630) Comment: Result Comment: Differential confirmed by visual scan of peripheral blood smear slide. Performed By: #### TSH, CBCD IF, CMP #### [facility] [address] [place] [address] NRBCs 0.0 0 /100 WBC Normal 11-24-2019 [facility] (70887) Comment: Performed By: #### TSH, CBCD IF, CMP #### [facility] [address] [place] [address] Platelet mean volume 11.4 9.0-12.7 fL Normal 0 [facility] (d) [Entitic vol] [place] (42962) Comment: Performed By: #### TSH, CBCD IF, CMP #### [facility] [address] [place] [address] Platelets (Bld) [#/Vol] 248 150-400 k/uL Normal 2019 [facility] (17128) Comment: Performed By: #### TSH, CBCD IF, CMP #### [facility] [address] [place] [address] RBC (Bld) [#/Vol] 4.00 3.90-5.20 m/uL Normal 11-24-2019 C [facility] (69275) Comment: Performed By: #### TSH, CBCD IF, CMP #### [facility] [address] [place], [place] [address] WBC (Bld) [#/Vol] 9.11 3.70-11.00 k/uL Normal 11-24-2019 [facility] (62141) Comment: Performed By: #### TSH, CBCD IF, CMP #### [facility] [address] [place], [place] [address] cnpn on 2019-11-21 CNPN Telephone (FAMPWS) Normal 11-21-2019 [place] [facility] SALLY VARGAS ([id number]) 1980 [facility] Date Time Provider Department (03833) 11/21/19 [facility] During your visit today, we recorded [...] Status:Closed by VALENTE BRUCE MA on 11/23/19 [facility] CNPN Telephone (FAMPWS) Normal 11-19-2019 [place] [facility] SALLY VARGAS ([id number]) 1980 [facility] Date Time Provider Department (57839) 11/19/19 [facility] FEL[facility] During your visit today, we recorded [...] 11:15 AM Signed Pt seen in [facility] ER on 11/19/19. Janneth Zhou, RN, [...] - Fully Assessed Reason for Visit: Question [6027] Patient Update [1234] Reason For Visit History [...] Report* * * Normal 11-17 [facility] FRONTAL/LAT DATE OF EXAM: Nov 18 2019 12:48PM [place] WOX 5291 - XR CHEST 2V FRONTAL/LAT / (66592) PROCEDURE REASON: multiple diagnoses * * * [...] tissues: Unremarkable. IMPRESSION: No acute radiographic abnormality. Pecan Mallow Dipper: HERMINIO Transcribe Date/Time: Nov 18 2019 1:01P Dictated by : KORI BLANKENSHIP MD This examination was interpreted and the report reviewed and electronically signed by: KORI BLANKENSHIP MD on Nov 18 2019 1:02PM EST [id number] progress on 2019-11 PROGRESS HNO ID: [id number] Normal 11-18-2019 [facility] Author: Vianey Aguayo (Rt) [place]ara ([id number]) Service: ? Author Type: [employer] Scout Type: Progress Notes Filed: 11/18/2019 12:49 PM [...] 18, 2019 12:40 PM PROGRESS HNO ID: [id number] Normal 11-18-2019 [facility] Author: Randi Lara ([id number]) Service: ? Author Type: Physician Director Supply Chain Type: Progress Notes Filed: 11/18/2019 3:32 PM [...] liver cyst 05/24/[address] [facility] 11/2009 and 04/2010 showe 4 mm increase in size . No pain. No elevated LFTs on 03/11/2010. - Calculus of kidney 05/17/[address] Nicolas: Hospitalized age 20, and again later -- no procedures so far ([facility], [facility], [address] [facility]) - Dysmenorrhea - Impaired fasting glucose [...] removed - TOTAL ABDOM HYSTERECTOMY 08/31/06 Hysterectomy, [facility] Family History FAMILY HISTORY Problem Relation [...] Approx. 3 cigarettes daily-1 pack every w [place] Substance Use Topics - Alcohol use: Yes [...] 2019-11-18 EKG1 NAME : SALLY VARGAS 020 [facility] PID : [id number] Sina boyd ([id number]) : 1980 Gender : Female Race : [...] ms QTC Calculation(Bazett) : 453 ms P [place] : 51 degrees R [place] : -43 degrees T [place] : 6 degrees Test Reason : Location : 185 : [facility] Overread By : RUBEN GALVIN D.O. Edited By : RUBEN GALVIN D.O. Referred By : ISABEL ARIAS(MAYA) Acquired by : morena MURRIETA on [facility]-11-[facility] (F[facility]) Normal 11-18-2019 [place] [facility] SALLY VARGAS ([id number]) 1980 F [place] Date Time Provider Department (23005) 11/18/19 [facility]AY ARIAS) [facility] During your visit today, we recorded the following informati on about you: Lorenzo Vu 11/18/2019 2:14 PM Addendum [facility] / [facility] calls with results of d-dimer 1.10 [...] 2019-11-18 CNOV Office Visit (FAMPWS) Normal 11-18-19 [place] [facility] SALLY VARGAS ([id number]) 1980 [facility] Date Time Provider Department (46447) 11/18/19 12:20 PM [facility]AS[facility] During your visit today, we recorded [...] States she was given gabapentin while in [facility] which helped or symptoms. I cannot find [...] liver cyst 05/24/[address] [facility] 11/2009 and 04/2010 showe 4 mm increase in size . No pain. No elevated LFTs on 03/11/2010. - Calculus of kidney 05/17/[address] Nicolas: Hospitalized age 20, a nd again later -- no procedures so far ([facility], [facility], [address] [facility]) - Dysmenorrhea - Impaired fasting glucose [...] removed - TOTAL ABDOM HYSTERECTOMY 08/31/06 Hysterectomy, [facility] Family History FAMILY HISTORY Problem Relation [...] Approx. 3 cigarettes daily-1 pack every w [place] Substance Use Topics - Alcohol use: Yes [...] (METRONIDAZOLE HCL) 03/11/2010 12 - Shortness of Capac th IBUPROFEN 06/18/2016 8 - GI Upset [...] pain syndrome [G89.4] Order(s):CONSULT TO PAIN MGT [003830] Order #: [id number] : 1 FUTURE CBC + DIFF [SQCBCDIF] Order #: [id number] FUTURE COMP METABOLIC PANEL [SQCMP] Order #: [id number] FUTURE D-DIMER [SQDDMER] Order #: [id number] FUTURE TSH BLD [SQTSH] Order #: [id number] FUTURE CONSULT TO CARDIOLOGY [9004] Order #: [id number]: 1 FUTUR E XR CHEST 2V FRONTAL/LAT [2599774] Order #: [id number] FUTURE TROPONIN T [SQTNT] Order #: [id number] FUTURE Prescriptions as of 11/18/2019 Sig: AMITRIPTYLINE [...] 11/18/19 emergency report on 2019-11-03 EMERGENCY REPORT [facility] Normal 11-[address] [facility] ospital EMERGENCY ROOM REPORT (65605) NAME ACCOUNT SEX AGE ADMIT DISCHARGE PT MED. RECORD# NUMBER DATE DATE TYPE SAM [id number] F 39 10/31/19 10/31/19 3 SALLY [id number] ROOM: ER DATE OF : 1980 DICTATING [...] try contacting Dr. Kyle hernandez through the [employer]. We will dispense her 2 Percocet to go home. I did r eview her OARRS, and she will be discharged in stable condition. Page 1 of 2 ABDIFATAHSALLY TORRES Emergency Room Report SAM SALLY : 1980 Dictated By: Nikhil Pena DO 10/31/19 18:03 JOB #: [id number] Transcribed By: am 11/01/19 14:42 Electronically signed by: JC Pena D.O. 11/03/19 07:04 Page 2 of 2 SALLY VARGAS Emergency Room Report urinalysis on 10-31 Calcium Ox 1+ NORMAL: NONE Normal 10-31-2019 [facility] (12853) Comment: Performed By: #### [id number] ## ## [facility],[address] [place] [address] Amorphous TRACE Normal 10-31-2019 [facility] (08197) Comment: Performed By: #### [id number] ## ## [facility],[address] [place] [address] Bacteria LM.HPF (Urine sed) TRACE Normal [facility] [#/Area] [facility] ( 97830) Comment: Performed By: #### [id number] ## ## [facility],[address] [place] [address] 27482 Bilirubin [Mass/Vol] NEG NORMAL: NEGATIVE mg/dL Normal [facility] (37190) Comment: Performed By: #### [id number] ## ## [facility],[address] [place] [address] 94707 Blood 25 NORMAL: NEGATIVE Abnormal 10-31-2019 [facility] (96417) Comment: Performed By: #### [id number] ## ## [facility],[address] [place] [address] 91838 Casts LM.LPF (Urine sed) NONE Normal 10-31 [facility] [/Area] [facility] ( 20023) Comment: Performed By: #### [id number] ## ## [facility],[address] [place] [address] 58157 Clarity (U) clear NORMAL: CLEAR Normal 10-31-2019 [facility] (01082) Comment: Performed By: #### [id number] ## ## [facility],[address] [place] [address] 414[address] Color (U) yellow NORMAL: YELLOW Normal 10-31-2019 [facility] (57700) Comment: Performed By: #### [id number] ## ## [facility],[address] [place] [address]602 Crystals LM Nom (Urine sed) SEE BELOW Normal [facility] ( 29848) Comment: Performed By: #### [id number] ## ## [facility],[address] [place] [address] 96937 Epi Cells MANY Normal 10-31-2019 [facility] (08216) Comment: Performed By: #### [id number] ## ## [facility],[address] [place] [address]1978 Glucose [Mass/Vol] NORM NORMAL: NORMAL Normal 2019 [facility] ( 92177) Comment: Performed By: #### [id number] ## ## [facility],[address] [place] [address] 80222 Ketone NEG NORMAL: NEGATIVE Normal 10-31-2019 [facility] [facility] (14083) Comment: Performed By: #### [id number] ## ## [facility],[address] [place] [address] 85008 Microscopic SEE BELOW Normal 10-31-2019 [facility] (87614) Comment: Result Comment: MICROSCOPIC Performed By: #### [id number] ## ## [facility],[address] [place] [address] 01058 Mucous NONE Normal 10-31-2019 [facility] (11555) Comment: Performed By: #### [id number] ## ## [facility],[address] [place] [address] 26396 Nitrite Ql (U) NEG NORMAL: NEGATIVE Normal 10-31-19 20 [facility] ( 64591) Comment: Performed By: #### [id number] ## ## [facility],[address] [place] [address] 56925 pH (Bld) 5 NORMAL: 5.0-8.0 Normal 10-31-2019 [facility] (98538) Comment: Performed By: #### [id number] ## ## [facility],[address] [place] [address] 55789 Protein (U) NEG NORMAL: NEGATIVE mg/dL Normal 10-31-2019 [facility] [Mass/Vol] [facility] (08213) Comment: Performed By: #### [id number] ## ## [facility],[address] [place] [address] 66744 Rbc 0-5 0-3/hpf Normal 10-31-2019 [facility] (60757) Comment: Performed By: #### [id number] ## ## [facility],[address] [place] [address] 67299 Sp [place] 1.030 NORMAL: 1.010-1.030 Normal 0 [facility] ( 89434) Comment: Performed By: #### [id number] ## ## [facility],[address] [place] [address] 99791 Specimen type Nom (Spec) UNSPECIFIED Normal [facility] ( 41467) Comment: Performed By: #### [id number] ## ## [facility],[address] [place] [address] 52795 Urobilinog NORM NORMAL: NORMAL Normal 10-31-2019 [facility] (63536) Comment: Performed By: #### [id number] ## ## [facility],[address] [place] [address] 22026 Wbc 1-5 0-5/hpf Normal 10-31-2019 [facility] (33292) Comment: Performed By: #### [id number] ## ## [facility],[address] [place] [address] 41237 WBC (Bld) [#/Vol] 25 NORMAL: NEGATIVE Abnormal 10-31 [facility] ( 45938) Comment: Performed By: #### [id number] ## ## [facility],[address] [place] [address] 72843 Yeast LM Ql (Urine sed) NONE Normal 2019 [facility] (68587) Comment: Performed By: #### [id number] ## ## [facility],[address] [place] [address] 74909 lipase on 2019-10-15 7 Lipase [Catalytic 40.0 18.0 - 51.0 U/L Normal 10-31-2019 [facility] activity/Vol] [facility] (32406) Comment: Performed By: #### [id number] ## ## [facility],[address] [place] [address] 04073 cmp with egfr on 03-11-16 Age - Reported 39 years Normal 10-31-2019 [facility] (41752) Comment: Performed By: #### [id number] ## ## [facility],[address] [place] [address] 24905 Albumin [Mass/Vol] 4.4 3.4 - 4.8 g/dL Normal 10-31-2019 [facility] ( 97000) Comment: Performed By: #### [id number] ## ## [facility],[address] [place] [address] 68660 Albumin/Globulin [Mass 1.3 0.9 - 1.6 {ratio} Normal 020 [facility]] [facility] (72024) Comment: Performed By: #### [id number] ## ## [facility],[address] [place] [address] 11922 ALK PHOS 79 38 - 126 U/L Normal 10-31-2019 [facility] (11322) Comment: Performed By: #### [id number] ## ## [facility],[address] [place] [address] 03565 ALT/SGPT 12 8 - 35 U/L Normal 10-31-2019 [facility] (37340) Comment: Performed By: #### [id number] ## ## [facility],[address] [place] [address] 04048 Anion gap [Moles/Vol] 12 10 - 20 mmol/L Normal 10-31-19 20 [facility] ( 86809) Comment: Performed By: #### [id number] ## ## [facility],[address] [place] [address] 84398 AST/SGOT 13 13 - 39 U/L Normal 10-31-2019 [facility] (58254) Comment: Performed By: #### [id number] ## ## [facility],[address] [place] [address] 71313 B/C RATIO 18 0 - 30 ratio Normal 10-31-2019 [facility] (92158) Comment: Performed By: #### [id number] ## ## [facility],[address] [place] [address] 47556 Bilirubin [Mass/Vol] 0.4 0.0 - 1.5 mg/dl Normal 0 [facility] ( 17957) Comment: Performed By: #### [id number] ## ## [facility],[address] [place] [address] 09176 Calcium [Mass/Vol] 9.6 8.6 - 10.2 mg/dl Normal 10-31-2019 [facility] ( 30664) Comment: Performed By: #### [id number] ## ## [facility],[address] [place] [address] 74456 Chloride [Moles/Vol] 103 98 - 107 mmol/L Normal 0 [facility] ( 94981) Comment: Performed By: #### [id number] ## ## [facility],[address] [place] [address] 77389 CO2 [Moles/Vol] 25.8 21.0 - 31.0 mmol/L Normal 10-31-[address] [facility] ( 33663) Comment: Performed By: #### [id number] ## ## [facility],[address] [place] [address] 99144 Creatinine [Mass/Vol] 1.0 0.6 - 1.2 mg/dl Normal 10-31-19 20 [facility] ( 80698) Comment: Performed By: #### [id number] ## ## [facility],[address] [place] [address] 91049 GFR/1.73 sq M predicted among Normal 10-31-2019 [facility] non-blacks MDRD (S/P/Bld) [Vol Hospital (34059) rate/Area] Comment: Result Comment: COMPREHENSIV E METABOLIC PANEL Performed By: #### [id number] ## ## [facility],[address] [place] [address] 21707 GFR/1.73 sq M >60 60 - 999 mL/min/{1.73_m2} Normal 0 [facility] predicted among [facility] non-blacks MDRD (000 00) (S/P/Bld) [Vol [...] OF AGE AND OLDER. Performed By: #### [id number] ## ## [facility],[address] [place] [address] 40431 Globulin (S) [Mass/Vol] 3.3 1.5 - 3.8 G/DL Normal 2019 [facility] ( 18925) Comment: Performed By: #### [id number] ## ## [facility],[address] [place] [address] [place] [address] Glucose [Mass/Vol] 96 74 - 106 mg/dl Normal 10-31-2019 [facility] ( 10665) Comment: Performed By: #### [id number] ## ## [facility],[address] [place] [address] [place] [address] Potassium [Moles/Vol] 3.9 3.5 - 5.1 mmol/L Normal 10-31-19 20 [facility] ( 65139) Comment: Performed By: #### [id number] ## ## [facility],[address] [place] [address] [place] [address] Protein [Mass/Vol] 7.7 6.4 - 8.3 g/dl Normal 10-31-2019 [facility] ( 31501) Comment: Performed By: #### [id number] ## ## [facility],[address] [place] [address] [place] [address] Sodium [Moles/Vol] 137 136 - 145 mmol/l Normal 10-31-2019 [facility] ( 08552) Comment: Performed By: #### [id number] ## ## [facility],[address] [place] [address] 34981 Urea nitrogen [Mass/Vol] 18 6 - 20 mg/dl Normal 10-31 [facility] ( 15090) Comment: Performed By: #### [id number] ## ## [facility],[address] [place] [address] 27716 cbc + diff on 10-31 Basophils (Bld) 0.20 0.00 - 0.10 x10EE3/UL High 10-31-2019 [facility] [#/Vol] [facility] (06803) Comment: Performed By: #### [id number] ## ## [facility],[address] [place] [address] 22111 Basophils/100 WBC (Bld) 2.0 0.0 - 2.0 % Normal 2019 [facility] ( 80732) Comment: Performed By: #### [id number] ## ## [facility],[address] [place] [address] 05380 CBC + DIFF Normal 10-31-2019 [facility] (01738) Comment: Result Comment: CBC-COMPLETE BLOOD COUNT Performed By: #### [id number] ## ## [facility],[address] [place] [address] 16499 Eosinophils (Bld) 0.40 0.00 - 0.50 x10EE3/UL Normal 10-31-2019 [facility] [#/Vol] [facility] (55331) Comment: Performed By: #### [id number] ## ## [facility],[address] [place] [address] 17463 Eosinophils/100 WBC (Bld) 4.8 0.0 - 7.0 % Normal 10-15 [facility] ( 24536) Comment: Performed By: #### [id number] ## ## [facility],[address] [place] [address] 66928 Erythrocyte distribution 13.7 12.0 - 15.6 % Normal [facility] (RBC) [Ratio] Hospital (55617) Comment: Performed By: #### [id number] ## ## [facility],[address] [place] [address] 63895 Hematocrit (Bld) [Volume 35.8 34.0 - 46.0 % Normal [facility] ( 30236) Comment: Performed By: #### [id number] ## ## [facility],[address] [place] [address] 46444 Hemoglobin (Bld) 12.3 12.0 - 16.0 g/dl Normal 10-31-2019 [facility] [Mass/Vol] [facility] (78141) Comment: Performed By: #### [id number] ## ## [facility],[address] [place] [address] 99854 Lymphocytes (Bld) 2.70 0.80 - 2.80 x10EE3/UL Normal 10-31-2019 [facility] [#/Vol] [facility] (58196) Comment: Performed By: #### [id number] ## ## [facility],[address] [place] [address] 82186 Lymphocytes/100 WBC (Bld) 30.3 20.0 - 45.0 % Normal [facility] ( 25905) Comment: Performed By: #### [id number] ## ## [facility],[address] [place] [address] 71141 MANUAL DIFF N/A Normal 10-31-2019 [facility] (19475) Comment: Performed By: #### [id number] ## ## [address] [address] MCH (RBC) [Entitic mass] 30 27 - 33 pg Normal 10-31 [facility] ( 38894) Comment: Performed By: #### [id number] ## ## [facility],[address] [place] [address] 64366 MCHC (RBC) [Mass/Vol] 34 32 - 36 X10 3 Normal 10-31-19 20 [facility] ( 04270) Comment: Performed By: #### [id number] ## ## [facility],[address] [place] [address] 97603 MCV (RBC) [Entitic vol] 88 80 - 99 fl Normal 2019 [facility] ( 12863) Comment: Performed By: #### [id number] ## ## [facility],[address] [place] [address] 83779 Monocytes (Bld) 0.50 0.20 - 1.00 x10EE3/UL Normal 10-31-2019 [facility] [#/Vol] [facility] (13807) Comment: Performed By: #### [id number] ## ## [facility],[address] [place] [address] 89106 MONOS % 5.4 0.0 - 10.0 % Normal 10-31-2019 [facility] (68344) Comment: Performed By: #### [id number] ## ## [facility],[address] [place] [address] 64098 Morphology Adrian (Bld) [Interp] N/A Normal 10-31-2019 [facility] ( 23234) Comment: Performed By: #### [id number] ## ## [facility],[address] [place] [address] 17080 Neutrophils (Bld) 5.10 1.50 - 7.10 x10EE3/UL Normal 10-31-2019 [facility] [#/Vol] [facility] (99499) Comment: Performed By: #### [id number] ## ## [facility],[address] [place] [address] 40851 Neutrophils/100 WBC (Bld) 57.5 46.0 - 76.0 % Normal [facility] ( 72030) Comment: Performed By: #### [id number] ## ## [facility],[address] [place] [address] 17677 Platelet mean volume 8.9 6.6 - 10.5 fl Normal 10-31-19 20 [facility] (Bld) [Entitic vol] Hospital (67962) Comment: Result Comment: AUTOMATED DI FFERENTIAL Performed By: #### [id number] ## ## [facility],[address] [place] [address] 30872 Platelets (Bld) 280 150 - 450 x10EE3/UL Normal 10-31-2019 [facility] [#/Vol] [facility] (82821) Comment: Performed By: #### [id number] ## ## [facility],[address] [place] [address] 06608 RBC (Bld) [#/Vol] 4.06 4.10 - 5.30 x 10EE6/UL Low 0 [facility] ( 52381) Comment: Performed By: #### [id number] ## ## [facility],[address] [place] [address] 62108 WBC (Bld) [#/Vol] 8.8 4.5 - 10.8 x 10EE3/UL Normal 10-31-2019 [facility] ( 59142) Comment: Performed By: #### [id number] ## ## [facility],[address] [place] [address] 92106 hemogram on 2019-09 Erythrocyte distribution 13.6 11.5-14.5 % Normal 10-08 [facility] width (RBC) [Ratio] (83716) Comment: Performed By: #### MG JULIA 3, HEMOG #### [address] [place] [address] Hematocrit (Bld) [Volume 33.3 35.0-47.0 % Low 10-08 [facility] fraction] (40810) Comment: Performed By: #### JULIA MG 3, HEMOG #### [facility] [address] [place], [place] Hemoglobin (Bld) [Mass/Vol] 11.3 11.7-16.0 g/dL Low [facility] (12786) Comment: Performed By: #### BMP3M, MG 3, HEMOG #### [place] [address] [place], [place] MCH (RBC) [Entitic mass] 30.4 26.0-34.0 pg Normal 10-08 [facility] (81606) Comment: Performed By: #### BMP3M, MG 3, HEMOG #### [place] [address] [place], [place] MCHC (RBC) [Mass/Vol] 33.9 32.0-36.0 % Normal 10-08-19 20 [facility] (16563) Comment: Performed By: #### BMP3M, MG 3, HEMOG #### [place] [address] [place], [place] MCV (RBC) [Entitic vol] 89.9 79.0-98.0 fL Normal 2019 [facility] (59610) Comment: Performed By: #### BMP3M, MG 3, HEMOG #### [place] [address] [place], [place] Platelet mean volume (Bld) 9.5 7.4-10.4 fL Normal [facility] [Entitic vol] (16384 ) Comment: Performed By: #### BMP3M, MG 3, HEMOG #### [place] [address] [place], [place] Platelets (Bld) [#/Vol] 240 140-440 10*3/uL Normal 2019 [facility] (59942) Comment: Performed By: #### BMP3M, MG 3, HEMOG #### [place] [address] [place], [place] RBC (Bld) [#/Vol] 3.70 3.80-5.20 10*6/uL Low 10-08-[address] [facility] (80147) Comment: Performed By: #### BMP3M, MG 3, HEMOG #### [facility] [address] [place], [place] WBC (Bld) [#/Vol] 18.5 3.6-10.7 10*3/uL High 10-08-[address] [facility] (30400) Comment: Performed By: #### BMP3M, MG 3, HEMOG #### [facility] [address], [place] ts gel on 2019-09-15 4 TS GEL ABO Group: Normal 10-07-2019 [facility] (20414) O Rh, Gel: POS Antibody Screen Gel: NEG Comment: Performed By: #### BMP3M, MG 3, HEMOG #### [facility] [address], [place] surgical pathology on 2019-10-07 Surgical [id number] Normal 10-07-2019 [facility] Pathology [facility] DEPARTMENT OF [facility] System PATHOLOGY AND ( ) LABORATORY MEDICINE [address] [place] [address] FINAL SURGICAL PATHOLOGY REPORT NAME: SALLY VARGAS : 1980 39 Y F BILLING NO.: [id number] LOCATION: [facility] 5117 01 PROCEDURE 10/07/2019 DATE: SURGEON: DELON [...] determined by the clinical labor atories of [facility]. They have not been cleared by [...] negativity on decalcified specimens. Professional Performing Location: [place] [address] [place] [address]. DEPARTMENT OF PATHOLOGY AND LABORATORY MEDICINE [place], [place] [address] op note on Op Note PATIENT: SALLY VARGAS -2 [facility] (90200) ADMISSION DATE: 10/07/2019 SURGERY DATE: 10/07/2019 DATE [...] with a minimal EBL. Diskriter Job ID: [id number] Delon Palacios MD DOD:10/07/2019 10:46 A SA/semaj DOT:10/07/2019 12:51 P Job Number: [id number] Document Number: [id number] cc: Delon Palacios MD [facility] Physicians [address] Replaced by [facility] [address] Lui Harris MD [address] [place], [address] [facility] [address] follicle stim hormone on 2019-09-15 Follicle Stim Hormone 6.5 m[IU]/mL Normal 09-15-19 [facility] (77326) Comment: Result Comment: Females: Follicular Phase ...... 2.3- 12.6 Mid-cycle Peak ........ 5.2- 17.5 Luteal Phase .......... 1.7- 12.9 Post-menopausal ....... 12.7 -132.2 Males: 0.7-10.8 Performed By: #### FSH3 #### [facility] [address] [place] [address] us pelvis ta/tv on 2019-09-11 US Pelvis TA/TV Patient Name: SALLY VARGAS 09-11-2019 [facility] (06581 ) Ultrasound Exam Date/Time 09/11/2019 14:17:16 EST Exam US Pelvis TA/TV Ordering Physician MARLA ARNDT REBECCA E. Accession Number [id number] CPT4 Codes 30269 (US Pelvis TA/TV), 96279 (US Transvaginal) Reason For Exam right ovarian mass seen on CT, s/p hysterectomy Report EXAMINATION: Transabdominal and transvaginal pelvic ultrasound. COMPARISON: CT scan of 09/11/2019 from [facility]. REASON FOR STUDY: Right ovarian [...] Baso Cnt 0.0 0.0-0.2 10*3/uL Normal 09-05-2019 [facility] (18728) Comment: Performed By: #### NALLELY CHI P3 #### [address] [place] [address] Abs Neutrophile Cnt 3.9 1.8-7.0 10*3/uL Normal 09-05-2019 [facility] (84300) Comment: Performed By: #### HEMMAGDALENO BM P3 #### [address] [place] [address] Basophils/100 WBC (Bld) 0.3 0.0-2.0 % Normal 2018 [facility] (07107) Comment: Performed By: #### ALON BM P3 #### [facility] [address] [place], [place] Eosinophils (Bld) [#/Vol] 0.2 0.0-0.5 10*3/uL Normal 08-15 [facility] (86050) Comment: Performed By: #### HEMDF, BM P3 #### [place] [address] [place], [place] Eosinophils/100 WBC (Bld) 3.3 1.0-6.0 % Normal 08-15 [facility] (68771) Comment: Performed By: #### HEMDF, BM P3 #### [place] [address] [place], [place] Erythrocyte distribution 12.9 11.5-14.5 % Normal 09-05 [facility] width (RBC) [Ratio] (25014) Comment: Performed By: #### HEMDF, BM P3 #### [place] [address] [place], [place] Granulocytes/100 WBC (Bld) 55.5 40.0-80.0 % Normal [facility] (26970) Comment: Performed By: #### HEMDF, BM P3 #### [place] [address] [place], [place] Hematocrit (Bld) [Volume 34.8 35.0-47.0 % Low 09-05 [facility] fraction] (14274) Comment: Performed By: #### HEMDF, BM P3 #### [place] [address] [place], [place] Hemoglobin (Bld) [Mass/Vol] 11.5 11.7-16.0 g/dL Low [facility] (97383) Comment: Performed By: #### HEMDF, BM P3 #### [place] [address] [place], [place] Lymphocytes (Bld) [#/Vol] 2.5 1.0-4.3 10*3/uL Normal 08-15 [facility] (01483) Comment: Performed By: #### HEMDF, BM P3 #### [place] [address] [place], [place] Lymphocytes/100 WBC (Bld) 35.4 20.0-40.0 % Normal 08-15 [facility] (80301) Comment: Performed By: #### HEMDF, BM P3 #### [place] [address] [place], [place] MCH (RBC) [Entitic mass] 29.9 26.0-34.0 pg Normal 09-05 [facility] (39789) Comment: Performed By: #### HEMDF, BM P3 #### [place] [address] [place], [place] MCHC (RBC) [Mass/Vol] 33.0 32.0-36.0 % Normal 09-05-20 [facility] (90364) Comment: Performed By: #### HEMDF, BM P3 #### [place] [address] [place], [place] MCV (RBC) [Entitic vol] 90.7 79.0-98.0 fL Normal 2018 [facility] (02319) Comment: Performed By: #### HEMDF, BM P3 #### [place] [address] [place], [place] Monocytes (Bld) [#/Vol] 0.4 0.0-0.8 10*3/uL Normal 2018 [facility] (83713) Comment: Performed By: #### HEMDF, BM P3 #### [place] [address] [place], [place] Monocytes/100 WBC (Bld) 5.5 2.0-10.0 % Normal 2018 [facility] (42569) Comment: Performed By: #### HEMDF, BM P3 #### [place] [address] [place], [place] Platelet mean volume (Bld) 9.8 7.4-10.4 fL Normal [facility] [Entitic vol] (02330 ) Comment: Performed By: #### HEMDF, BM P3 #### [facility] [address], [place] Platelets (Bld) [#/Vol] 204 140-440 10*3/uL Normal 2018 [facility] (76558) Comment: Performed By: #### HEMDF, BM P3 #### [facility] [address], [place] RBC (Bld) [#/Vol] 3.83 3.80-5.20 10*6/uL Normal 09-05-2019 S [facility] (54883) Comment: Performed By: #### HEMDF, BM P3 #### [facility] [address], [place] WBC (Bld) [#/Vol] 7.0 3.6-10.7 10*3/uL Normal 09-05-2019 S [facility] (05131) Comment: Performed By: #### HEMDF, BM P3 #### [facility] [address], [place] cr urography retrograde w/ + w/o kub on 2019-09-05 CR Urography Patient Name: SALLY VARGAS Normal 09-05-2019 [facility] Retrograde w/ + w/o System (72729) KUB Diagnostic Radiology Exam Date/Time 09/05/2019 08:12:21 EST Exam CR Urography Retrograde w/ + w/o KUB Ordering Physician MAUREEN STONE Accession Number [id number] CPT4 Codes 07588 () Reason For Exam Renal stone fluro c arm c and p Report A total of 1 minute and 11 seconds of fluoro time was used in the Operating Suite for this procedure. No other report will be generated. Final Signed Date and Time: 09/26/2019 2:02 pm Signed by: ESTIMATOR, SYSTEM Transcribed Date and Time: 09/26/2019 1:19 Transcribed By:KRISTAN basic metabolic panel on 2019-09-05 Calcium [Mass/Vol] 8.7 8.4-10.4 mg/dL Normal 09-05-2019 [facility] (15547) Comment: Performed By: #### HEMDF, BM P3 #### [facility] [address], [place] Anion gap [Moles/Vol] 7 Normal 09-05-20 [facility] (97735) Comment: Performed By: #### HEMDF, BM P3 #### [facility] [address], [place] CO2 [Moles/Vol] 24 22-30 mmol/L Normal 09-05-2019 [facility] (74476) Comment: Performed By: #### HEMDF, BM P3 #### [facility] [address], [place] Creatinine [Mass/Vol] 0.79 0.52-1.25 mg/dL Normal 09-05-20 [facility] (21628) Comment: Performed By: #### HEMDF, BM P3 #### [facility] [address], [place] GFR/1.73 sq M > 60.0 >60 mL/min/{1.73_m2} Normal 9 [facility] predicted among Syst em (44061) blacks MDRD (S/P/Bld) [Vol rate/Area] Comment: Performed By: #### HEMDF, BM P3 #### [facility] [address], [place] GFR/1.73 sq M > 60.0 >60 mL/min/{1.73_m2} Normal 9 [facility] predicted among Syst em (57145) non-blacks MDRD (S/P/Bld) [Vol rate/Area] Comment: Result Comment: Source- MDRD equation with creatinine calibration to IDMS(NKDEP) eGFR not recommended for dylon g dose adjustment Performed By: #### HEMDF, BM P3 #### [facility] [address], [place] Glucose [Mass/Vol] 85 70-100 mg/dL Normal 09-05-2019 [facility] (98395) Comment: Performed By: #### HEMDF, BM P3 #### [facility] [address], [place] Urea nitrogen [Mass/Vol] 5 7-20 mg/dL Low 09-05 [facility] (88025) Comment: Performed By: #### HEMDF, BM P3 #### [place] [address] [place], [place] Chloride [Moles/Vol] 108 98-107 mmol/L High 9 [facility] (99084) Comment: Performed By: #### HEMDF, BM P3 #### [place] [address] [place], [place] Potassium [Moles/Vol] 4.0 3.5-5.1 mmol/L Normal 09-05-20 19 [facility] (40416) Comment: Performed By: #### HEMDF, BM P3 #### [place] [address] [place], [place] Sodium [Moles/Vol] 140 135-145 mmol/L Normal 09-05-2019 [facility] ([id number]) Comment: Performed By: #### HEMDF, BM P3 #### [place] [address] [place], [place] magnesium on 2018-09 Magnesium [Mass/Vol] 1.9 1.6-2.3 mg/dL Normal 9 [facility] (53146) Comment: Performed By: #### BMP3M, MG 3, HEMOG #### [place] [address] [place], [place] hemogram on 2019-08 Erythrocyte distribution 13.2 11.5-14.5 % Normal 09-04 [facility] width (RBC) [Ratio] (06189) Comment: Performed By: #### BMP3M, MG 3, HEMOG #### [address] Hematocrit (Bld) [Volume 36.7 35.0-47.0 % Normal 09-04 [facility] fraction] (08355) Comment: Performed By: #### BMP3M, MG 3, HEMOG #### [place] [address] [place], [place] Hemoglobin (Bld) 12.3 11.7-16.0 g/dL Normal 09-04-2019 [facility] [Mass/Vol] (04742) Comment: Performed By: #### BMP3M, MG 3, HEMOG #### [facility] [address] [place], [place] MCH (RBC) [Entitic mass] 30.6 26.0-34.0 pg Normal 09-04 [facility] (38600) Comment: Performed By: #### BMP3M, MG 3, HEMOG #### [place] [address] [place], [place] MCHC (RBC) [Mass/Vol] 33.5 32.0-36.0 % Normal 09-04-20 19 [facility] (22087) Comment: Performed By: #### BMP3M, MG 3, HEMOG #### [place] [address] [place], [place] MCV (RBC) [Entitic vol] 91.3 79.0-98.0 fL Normal 2018 [facility] (66796) Comment: Performed By: #### BMP3M, MG 3, HEMOG #### [place] [address] [place], [place] Platelet mean volume (Bld) 10.4 7.4-10.4 fL Normal [facility] [Entitic vol] (11673 ) Comment: Performed By: #### BMP3M, MG 3, HEMOG #### [place] [place], [place] Platelets (Bld) [#/Vol] 211 140-440 10*3/uL Normal 2018 [facility] (21243) Comment: Performed By: #### BMP3M, MG 3, HEMOG #### [place] [address] [place], [place] RBC (Bld) [#/Vol] 4.02 3.80-5.20 10*6/uL Normal 09-04-[address] [facility] (51793) Comment: Performed By: #### BMP3M, MG 3, HEMOG #### [facility] [address] [place], [place] WBC (Bld) [#/Vol] 7.1 3.6-10.7 10*3/uL Normal 09-04-[address] [facility] (36596) Comment: Performed By: #### BMP3M, MG 3, HEMOG #### [facility] [address] [place], [place] culture urine on 01-09-22 CULTURE URINE CULTURE URINE --> Status: F Normal 09-04-2019 [facility] No growth (<1,000 CFU/ml). (55098) Comment: Order Comment: Specimen Sour ce Comment:Urine, clean catch Performed By: #### C/UR #### [place] [address] [place], [place] basic metabolic panel on 2019-09-04 Potassium [Moles/Vol] 3.5 3.5-5.1 mmol/L Normal 09-04-20 [facility] (84646) Comment: Performed By: #### BMP3M, MG 3, HEMOG #### [facility] [employer] [place] [address] [place], [place] Anion gap [Moles/Vol] 9 Normal 09-04-20 [facility] (34967) Comment: Performed By: #### BMP3M, MG 3, HEMOG #### [place] [address] [place], [place] Calcium [Mass/Vol] 8.8 8.4-10.4 mg/dL Normal 09-04-2019 [facility] (90966) Comment: Performed By: #### BMP3M, MG 3, HEMOG #### [place] [address] [place], [place] CO2 [Moles/Vol] 26 22-30 mmol/L Normal 09-04-2019 [facility] (74319) Comment: Performed By: #### BMP3M, MG 3, HEMOG #### [place] [address] [place], [place] Glucose [Mass/Vol] 76 70-100 mg/dL Normal 09-04-2019 [facility] (66122) Comment: Performed By: #### BMP3M, MG 3, HEMOG #### [facility] [address] [place], [place] Urea nitrogen [Mass/Vol] 10 7-20 mg/dL Normal 09-04 [facility] (50405) Comment: Performed By: #### BMP3M, MG 3, HEMOG #### [facility] [address] [place], [place] Creatinine [Mass/Vol] 0.81 0.52-1.25 mg/dL Normal 09-04-20 19 [facility] (87195) Comment: Performed By: #### BMP3M, MG 3, HEMOG #### [facility] [employer] [place] [address] [place], [place] GFR/1.73 sq M > 60.0 >60 mL/min/{1.73_m2} Normal 9 [facility] predicted among Syst em (45443) blacks MDRD (S/P/Bld) [Vol rate/Area] Comment: Performed By: #### BMP3M, MG 3, HEMOG #### [facility] [employer] [place] [address] [place], [place] GFR/1.73 sq M > 60.0 >60 mL/min/{1.73_m2} Normal 9 [facility] predicted among Syst em (80024) non-blacks MDRD (S/P/Bld) [Vol rate/Area] Comment: Result Comment: Source- MDRD equation with creatinine calibration to IDMS(NKDEP) eGFR not recommended for dylon g dose adjustment Performed By: #### BMP3M, MG 3, HEMOG #### [facility] [employer] [place] [address] [place], [place] Sodium [Moles/Vol] 138 135-145 mmol/L Normal 09-04-2019 [facility] (83766) Comment: Performed By: #### BMP3M, MG 3, HEMOG #### [facility] [address] [place] [address] Chloride [Moles/Vol] 103 98-107 mmol/L Normal 9 [facility] (71455) Comment: Performed By: #### BMP3M, MG 3, HEMOG #### [facility] [address] [place] [address] cr abdomen ap on 01-09-21 CR Abdomen AP Patient Name: SALLY VARGAS 09-03-2019 [facility] ([id number] ) Diagnostic Radiology Exam Date/Time 09/03/2019 17:35:36 EST Exam CR Abdomen AP Ordering Physician MD RACH,CONCHIS Ha Accession Number [id number] CPT4 Codes 89415 () Reason For Exam nephrolithiasis Report ABDOMEN, [...] on 2019-08-03 [facility] Letter Text Normal 08-03-2019 [facility] ([id number]) xr sacrum/coccyx 3v ap/lat on 2019-07-21 XR SACRUM/COCCYX 3V * * *Final Report* * * Normal 07-21-2019 [place] AP/LAT DATE OF EXAM: Jul 21 2019 11:38AM [facility] WOX 5246 - XR SACRUM/COCCYX 3V AP/LAT / 4 [place] PROCEDURE REASON: multiple diagnoses (78882) * * * * Physician Interpretation * [...] BONY ABNORMALITY IN THE PELVIS SEGMENT COCCYX. Pecan Mallow Dipper: [facility] SERVICES[facility]rey Transcribe Date/Time: Jul 21 2019 4:01P Dictated by : ESTEE CUMMINGS MD This examination was interpreted and the report reviewed and electronically signed by: ESTEE CUMMINGS MD on Jul 21 2019 4:06PM EST [id number] xr lumbar 3v ap/lat/l5-s1 on 2019-07-21 XR LUMBAR 3V * * *Final Report* * * Normal 11-0 [place] AP/LAT/L5-S1 DATE OF EXAM: Jul 21 2019 11:38AM Clinic [address] 5228 - XR LUMBAR 3V AP/LAT/L5-S1 / [place] PROCEDURE REASON: multiple diagnoses (59601) * * * * Physician Interpretation * [...] BONY ABNORMALITY IN THE PELVIS SEGMENT COCCYX. Pecan Mallow Dipper: HERMINIO Transcribe Date/Time: Jul 21 2019 4:01P Dictated by : ESTEE CUMMINGS MD This examination was interpreted and the report reviewed and electronically signed by: ESTEE CUMMINGS MD on Jul 21 2019 4:06PM EST [id number] tsh on 2019-07-21 TSH Qn 1.510 0.270-4.200 uU/mL Normal 07-21-2019 [facility] ([id number]) Comment: Result Comment: If the patie nt [...] et al. 2017 Guide lines of the [place] Thyroid Association for the Diagnosis and Management of Thyroid Disease during and the . Thyroid, 2017:27:3:315-389. Performed By: #### MORIAH, TS H, HBA1C ####[facility] [address] [place] [address] [phone] progress on 2019-07 PROGRESS HNO ID: [id number] Normal 07-21-2019 [facility] Author: Elena Millard [facility] ([id number]) Service: ? Author Type: ? Type: Progress [...] 21, 2019 11:23 AM PROGRESS HNO ID: [id number] Normal 07-21-2019 [facility] Author: AustinPaRex) Hugo Lara ([id number]) Service: ? Author Type: Physician Director Supply Chain Type: Progress Notes Filed: 07/21/2019 11:26 AM [...] liver cyst 05/24/[address] [facility] 11/2009 and 04/2010 showe 4 mm increase in size . No pain. No elevated LFTs on 03/11/2010. - Calculus of kidney 05/17/[address] Nicolas: Hospitalized age 20, and again later -- no procedures so far ([facility], most, [address] [facility]) - Dysmenorrhea - Impaired fasting glucose [...] removed - TOTAL ABDOM HYSTERECTOMY 08/31/06 Hysterectomy, [facility] Family History FAMILY HISTORY Problem Relation [...] file Gets together: Not on file Attends jainism service: Not on file Active member of [...] Cholesterol [Mass/Vol] 206 <200 mg/dL High 019 [facility] (98517) Comment: Result Comment: <200 mg/dL, Desirable 200-239 mg/dL, Borderline hi gh >239 mg/dL, High Performed By: #### LIPNF, TS H, HBA1C ####[facility] [address] [place], [place] [phone] Cholesterol in 2.39 <2.54 mg/dL Normal 07-21-2019 [facility] LDL/Cholesterol in HDL [[facility] (88402) ratio] Comment: Result Comment: Reference: 1. National Cholesterol Educ ation Program ATP III Guideline At-A-Glance Quick Desk Reference: National Heart, Lung, and Blood [place]. National Institutes of Health. 2001: NIH Publication No. 01-3305. 2. An International Atherosc lerosis Society position paper: global recommendations for the management of dyslipidemia: executive summary, Atherosclerosis. 2014: 232(2):410-413. Performed By: #### LIPCARMELITA, TS H, HBA1C ####[facility] [place] [address] [phone] Cholesterol.total/Cholesterol in 4.04 <5.10 mg/dL Normal 07-21-2019 [place] HDL [Mass ratio] [facility] (70124) Comment: Performed By: #### LIPCARMELITA, TS H, HBA1C ####[facility] [address] [phone] HDL Cholesterol, NF 51 >39 mg/dL Normal 07-21-2019 [facility] (95599) Comment: Result Comment: 40-59 mg/dL, Acceptable >59 mg/dL, High: Negative ri sk factor for coronary heart disease <40 mg/dL, Low: Positive ris k factor for coronary heart disease Performed By: #### LIPCARMELITA, TS H, HBA1C ####[place] [id number] [place] [address] [phone] LDL Cholesterol, NF 122 <100 mg/dL High 07-21-2019 [facility] (66636) Comment: Result Comment: <100 mg/dL, Optimal 100-129 mg/dL, Near optimal/ above optimal 130-159 mg/dL, Borderline hi gh 160-189 mg/dL, High >189 mg/dL, Very high Secondary prevention optimal LDL Cholesterol levels are recommended to be < 70 mg/dL Performed By: #### LIPCARMELITA, TS H, HBA1C ####[facility] [address] [phone] Non HDL Chol, NF 155 <130 mg/dL High 07-21-2019 [facility] (53128) Comment: Result Comment: <130 mg/dL, Optimal 130-159 mg/dL, Near optimal/ above optimal 160-189 mg/dL, Borderline hi gh 190-219 mg/dL, High >219 mg/dL, Very high Secondary prevention optimal non HDL Cholesterol levels are recommended to be < 100 mg/dL Performed By: #### LIPNF, TS H, HBA1C ####[facility] [address] [phone] Triglycerides, NF 163 <150 mg/dL High 07-21-2019 [facility] (49537) Comment: Result Comment: <150 mg/dL, Normal 150-199 mg/dL, Borderline hi gh 200-499 mg/dL, High >499 mg/dL, Very high Performed By: #### LIPNF, TS H, HBA1C ####[facility] [address] [phone] VLDL Cholesterol, NF 33 <30 mg/dL High 9 [facility] (90106) Comment: Performed By: #### LIPNF, TS H, HBA1C ####[place] [id number] [place] [address] [phone] hemoglobin a1c on 2 HbA1c (Bld) [Mass fraction] 105 mg/dL Normal [facility] (51993) Comment: Result Comment: eAG: (Estima arnie average glucose) is a calculated value from HgbA1c and is factory representative of the average blood glucose level in the last 2-3 month period. Performed By: #### LIPNF, TS H, HBA1C ####[place] [id number] [place] [address] [phone] HbA1c (Bld) [Mass fraction] 5.3 4.3-5.6 % Normal [facility] (98704) Comment: Result Comment: [place] Marya betes Association guidelines indicate that patients with HgbA1c in the range 5.7-6.4% are at increased risk for development of diabetes, and intervention by lifestyle modification may be beneficial. HgbA1c greater o r equal to 6.5% is considered diagnostic of diabetes. Performed By: #### LIPNF, TS H, HBA1C ####[facility] [place] [address] [phone] cnov on 2019-07-21 CNOV Office Visit (FAMPWS) Normal 07-21-20 19 [place] [facility] SALLY VARGSA ([id number]) 1980 F [place] Date Time Provider Department ([id number]) 07/21/19 10:40 AM JAY ARIAS) RAMA During [...] liver cyst 05/24/[address] [facility] 11/2009 and 04/2010 showe 4 mm increase in size . No pain. No elevated LFTs on 03/11/2010. - Calculus of kidney 05/17/[address] Nicolas: Hospitalized age 20, a nd again later -- no procedures so far ([facility], most, [address] [facility]) - Dysmenorrhea - Impaired fasting glucose [...] removed - TOTAL ABDOM HYSTERECTOMY 08/31/06 Hysterectomy, [facility] Family History FAMILY HISTORY Problem Relation [...] file Gets together: Not on file Attends jainism service: Not on file Active member of [...] (METRONIDAZOLE HCL) 03/11/2010 12 - Shortness of Capac th IBUPROFEN 06/18/2016 8 - GI Upset [...] cardiovascular disease [Z13.220, Z13.6] Order(s):CONSULT TO NEUROLOGY [9095] Order #: [id number]: 1 FUTURE amitriptyline (ELAVIL) 50 mg tabletTake 1 tablet by mouth da federico at bedtime.Disp: 30 tabletRfl: 5 XR LUMBAR GENERAL 3V AP/LAT/L5-S1 [1344749] Order #: [id number] FUTURE XR SACRUM/COCCYX 3V AP/LAT [2116514] Order #: [id number] FUT URE TSH BLD [SQTSH] Order #: [id number] FUTURE HGB A1C [IKQYQ2C] Order #: [id number] FUTURE LIPID PANEL, NONFASTING [SQLIPNF] Order #: [id number] FUTURE cyclobenzaprine (FLEXERIL) 10 mg tabletTake 1 [...] - 3. Body Temperature 97.81 [degF] 05-17-2020 [facility] (08324) Body Temperature 97.9 [degF] 05-08-2020 [facility] (49585) Body weight 89.9 kg 05-17-2020 [facility] (28475) Body weight 93.89 kg 05-08-2020 [facility] (76484) BP Diastolic 82 mm[Hg] 05-17-2020 [facility] (21097) BP Diastolic 76 mm[Hg] 05-08-2020 [facility] (56932) BP Systolic 124 mm[Hg] 05-17-2020 [facility] (87645) BP Systolic 121 mm[Hg] 05-08-2020 [facility] (45132) Height 154.9 cm 05-08-2020 [facility] (83160) Pulse (Heart Rate) 86 /min 05-17-2020 [place] (22674) Pulse (Heart Rate) 91 /min 05-08-2020 [place] [facility] (85913) Pulse Oximetry 97 % 05-08-2020 [facility] (74194) Respiratory Rate 16 /min 05-17-2020 [facility] (45389) Respiratory Rate 18 /min 05-08-2020 [facility] (08136) Encounters Date Type Reason Provider Location 06-25-2020 - Chart abstracting Postoperative pain Mala [facility] 06-25-[address] [facility] Comment: Refill Request 05-23-2020 - E-mail encounter Isabel Romero) [facility] 05-23-2020 from jackie Arias 03-24-2020 - Emergency Migraine, CORBY Eddy Mello Johnston 03-24-2020 department unspecified, not [facility] patient visit CORBY frazier ([id number]) [facility] ISABEL ARIAS UNKNOWN PROVIDER 01-21-2020 - Emergency ANA Johnston 01-21-2020 department [facility] al patient visit ANA ALVARADO ([id number]) JENNIFER ARIAS UNKNOWN PROVIDER 11-25-2019 - Emergency ANA Johnston 11-25-2019 department [facility] al patient visit ANA ALVARADO ([id number]) JENNIFER ARIAS UNKNOWN PROVIDER 10-31-2019 - Emergency Lower abdominal NIKHIL E Mello Moreira shiva 10-31-2019 department pain, [facility] al patient visit unspecified NIKHIL Shannon ([id number]) JEAN ESTRADA PROVIDER 04-26-2020 - Letter encounter [...] pancreas Mala [facility] 06-05-2020 procedure [facility] Comment: Pancreatic cyst (Primary Dx) 05-30-2020 - Patient [facility] Provider Marco [facility] c 05-30-2020 encounter procedure 05-24-2020 - Patient Abdominal Johnny Mccall Gastroenterolog y 05-24-2020 encounter bloating [facility] procedure Comment: Bloating (Primary Dx); Nausea and vomiting, intract ability of vomiting not specified, unspecified vomiting type; Diarrhea, unspecified type 05-23-2020 Patient encounter Postoperative pain Isabel Romero) [facility] procedure Hugo Underwood Comment: RE: Appointment Request 05-17-2020 - Patient encounter Shoulder pain Kenia (Green L[employer] Grader) [facility] [facility] 05-17-2020 procedure Workman Xr [facility] [place] Comment: Acute pain of right shoulder (Primary Dx) Radiology XR 04-30-2020 - Patient encounter Generalized abdominal Us [facility] Wstr R adiology 04-30-2020 procedure pain Mob 1 Comment: Radiology US 06-28-2020 - 06-28-2020 Refill Postoperative pain Mala BOOKER PROVIDER ADULT Comment: Refill Request 06-26-2020 - 06-26-2020 Refill Johnny Mccall [facility] [place] Comment: Refill Request 05-30-2020 Results Only [facility] Provider Marco [facility] 05-08-2020 - Subsequent Generalized Johnny Mccall Ambulatory 05-08-2020 hospital visit by abdominal pain [facility] Surgery physician Comment: Generalized abdominal pain [ R10.84] 06-05-2020 - Telemedicine Mala Almendarez [facility] 06-05-2020 consultation with patient 05-24-2020 - Telemedicine Johnny Mccall [facility] 05-24-2020 consultation with Pa patient 06-15-2020 - Telephone encounter Local infection Taty (Manufacturing Applications Engineer [facility] 06-15-2020 of wound [employer]ader) [facility] DEPARTMENT Comment: Multiple Concerns 05-31-2020 - Telephone encounter Johnnyvivienne Mccall [facility] [place] 05-31-2020 [facility] Comment: Patient Update 05-18-2020 - Telephone Shoulder pain Marcelino Mejia [facility] zacharyne 05-18-2020 encounter [place] Comment: Referral Request 05-07-2020 - Telephone encounter Johnny Mccall [facility] [place] 05-07-2020 [facility] Comment: Patient Update 05-01-2020 - Telephone encounter Johnny Mccall [facility] [place] 05-01-2020 [facility] Comment: Results 04-30-2020 - Telephone encounter Johnny Mccall [facility] [place] 04-30-2020 [facility] Comment: Returning Patient's Call 04-27-2020 - 04-27-2020 Telephone encounter Marcelino Mejia [facility] [place] Comment: Medication request Procedures Procedure Name Date Provider Location Antibody screen 06-11-2020 [facility] ([id number]) Comment: Performed By: #### CBCD1 ### # [place] [address] CARDIAC 05-30-2020 [facility] Provider [facility] (83450) Radex shoulder complete minimum 2 05-17-2020 - Kenia (Green Lumber Grader) [facility] views 05-17-2020 Workman (02825) SURGICAL PATHOLOGY 05-08-2020 Johnny Mccall [place] [facility] (52036) Colonoscopy flx dx w/collj spec 05-08-2020 [facility] Provider [facility] when pfrmd (16412) Esophagogastroduodenoscopy 05-08-2020 [facility] Provider [facility] transoral diagnostic (15453) Us abdominal real time w/image 04-30-2020 - Johnny Burks [facility] limited 04-30-2020 [facility] (48398) Urinalysis 10-31-2019 [facility] (04254) Comment: Result Comment: URINALYSIS Performed By: #### [id number] ## ## [facility],[address] [place] [address] Plan of Treatment Plan Description Date Location DTAP,TDAP,TD (2 - Td) DTAP,TDAP,TD (2 - Td) 05-28-2025 - [facility] 05-28-2025 (33908) INFLUENZA (#1) INFLUENZA (#1) 2020 - [facility] 05-15-2020 (12888) MAMMOGRAM MAMMOGRAM 2019 - [facility] 2019 (17639) COLONOSCOPY COLONOSCOPY 1997 - [facility] 1997 (37370) HEPATITIS C SCREENING HEPATITIS C SCREENING 1997 - [facility] 1997 (85579) HIV SCREENING HIV SCREENING 1997 - [facility] 1997 (34700) COLONOSCOPY - COLONOSCOPY - DIAGNOSTIC 05-08-2020 [facility] DIAGNOSTIC Endoscopy Routine (76239) Generalized abdominal pain Loose stools Dyspepsia Gastroesophageal reflux disease, esophagitis presence not specified Other dysphagia History of acute pancreatitis Bloating Nausea and vomiting, intractability of vomiting not specified, unspecified vomiting type 1 Occurrences starting 05/08/2020 until 05/08/2020 Comment: 1 Occurrences starting 05/08 until 05/08/2020 EGD EUS EGD EUS Endoscopy Routine Idiopathic 05-10-2021 [facility] (31674) acute pancreatitis, unspecified complication status 1 Occurrences starting 05/10/2020 until 05/10/2021 Comment: 1 Occurrences starting 05/10 until 05/10/2021 EGD EGD Endoscopy Routine Generalized abdominal 04-15 [facility] (41984) pain Loose stools Dyspepsia Gastroesophageal reflux disease, esophagitis presence not specified Other dysphagia History of acute pancreatitis Bloating Nausea and vomiting, intractability of vomiting not specified, unspecified vomiting type 1 Occurrences starting 05/08/2020 until 05/08/2020 Comment: 1 Occurrences starting 05/08 until 05/08/2020 MRI ABDOMEN WO/W IVCON MRI ABDOMEN WO/W IVCON 07-05-2021 [facility] (15062) Radiology Routine Pancreatic cyst 1 Occurrences starting 06/05/2020 until 07/05/2021 Comment: 1 Occurrences starting 06/05 until 07/05/2021 PRE-PROCEDURE & PRE-PROCEDURE & 05-10-2021 [facility] PRE-OPERATIVE COVID PRE-OPERATIVE COVID (85709) Microbiology Routine Idiopathic acute pancreatitis, unspecified complication status 1 Occurrences starting 05/10/2020 until 05/10/2021 Comment: 1 Occurrences starting 05/10 until 05/10/2021 SURGICAL PATHOLOGY SURGICAL PATHOLOGY Lab Routine [facility] (57077) 05/08/2020 1:17 PM EDT no information [facility] (28626) Immunizations Vaccine Notes Status Date Location Influenza Seasonal influenza, seasonal, (completed) 05-11-2020 - [facility] Inj Age 3+ injectable 05-11-2020 (56044) Influenza Seasonal influenza, seasonal, (completed) 05-31-2019 - [facility] Inj Age 3+ injectable 05-31-2019 (79941) [facility]neumovax pneum[facility] ([facility], 05-19-2017 (441 95) 23 valent Tdap (Age 7+) tetanus toxoid, reduced (completed) 05-28-2015 - [facility] diphtheria toxoid, and 05-28-2015 (4419 5) acellular pertussis vaccine, adsorbed Payers Payer Name Policy Number Location [facility] [id number] [facility] OUTPATIENT ([id number]) [employer] [employer] [id number] [facility] [phone] [id number] [facility] (15705) [id number] [facility] (55292) [id number] [facility] (98117) [id number] [facility] (00558) The following information is from the original human readable contentNo Payer Records FoundNo Payer Records FoundNo Payer Records FoundNo Payer Records FoundNo Payer Records FoundNo Payer Records FoundNo Payer Records FoundNo Payer Records FoundNo Payer Records Found Social History Type Social History Date Location Description History of tobacco use Current smoker 01-12-2017 [facility] (91522) Alcohol Comment Occasional 11-26-2010 - [facility] 11-26-2010 (59892) History of tobacco use Cigarette Smoker 01-12-2017 [facility] ([id number]) Cigarettes smoked 05-17-2020 - [facility] current (pack per day) 06-08-2020 (99249) - Reported Tobacco use and Never used 05-17-2020 - [facility] exposure 06-08-2020 (93928) Alcohol intake Current drinker of 05-17-2020 - [facility] alcohol (finding) 06-08-2020 (38380) Tobacco Comment Approx. 3 cigarettes 03-10-2011 - [facility] daily-1 pack every week 03-10-2011 (94969) Tobacco smoking status Former smoker 05-17-2020 - [facility] NHIS 06-08-2020 (13929) Sex Assigned At Not on file [facility] (49369) Exposure to SARS-CoV-2 Not sure [facility] (event) (93482) History SDOH Financial 5 06-08-2020 - [facility] 06-08-2020 (08708) History SDOH Food Worry 1 06-08-2020 - [facility] 06-08-2020 (65591) History SDOH Transport 2 06-08-2020 - [facility] 06-08-2020 (47039) Exposure to SARS-CoV-2 Yes [facility] (event) (83917) The following information is from the original human readable contentNo Social History Records FoundNo Social History Records FoundNo Social History Records FoundNo Social History Records FoundNo Social History Records FoundNo Social History Records FoundNo Social History Records FoundNo Social History Records FoundNo Social History Records FoundNo Social History Records FoundNo Social History Records Found Instructions Patient InstructionsBartolo Kenia ([employer]) - 05/17/2020 12:23 PM EDTA/P (M25.511) Acute [...] Vargas Date of : 1980 MRN/E #: [id number] Chief Complaint Patient presents with: right shoulder [...] history is provided by the patient. No varnish melter was used. PAIN EVALUATION 05/17/2020 1153 Pain [...] liver cyst 05/24/[address] [facility] 11/2009 and 04/2010 showe 4 mm increase in size. No pain. No elevated LFTs on 03/11/2010. ? Calculus of kidney 05/17/[address] Nicolas: Hospitalized age 20, and again later -- no procedures so far ([facility], [address] [facility]) ? Dysmenorrhea ? History of blood [...] 3V OR MORE AP/TRUE AP/OTHER RT FINDINGS: KOIR BLANKENSHIP MD No acute fractures or subluxations [...] go to the ED. Patient went to [place] ED and mentions 'nothing was done. They [...] note she presented to the ED in [place] in January 2020 for abdominal pain of [address] abdomen was essentially unremarkable including pancreas. Was found to have lipase of 193 on 02/15/2020. Amylase normal. Hepatic function panel. ? Has h/o cholecystectomy in 1998. PAST MEDICAL HISTORY Diagnosis Date ? Allergic rhinitis, cause unspecified 05/17/2008 Spring and summer ? Benign liver cyst 05/24/[address] [facility] 11/2009 and 04/2010 showe 4 mm increase in size. No pain. No elevated LFTs on 03/11/2010. ? Calculus of kidney 05/17/[address] Nicolas: Hospitalized age 20, and again later -- no procedures so far ([facility],[place], [facility]) ? Cancer (HCC) ? Diverticulosis ? [...] the ED yesterday - she went to [place] ED and was told that pancreas levels [...] for nausea. Advised to go to the [facility] ED if no improvement in [...] Documents on File Type Date Recorded Patient Protection Consultant Explanati on Advance Directive(s) 05/08/2020 12:13 PM Documents on File Type Date Recorded Patient Protection Consultant Explanati on Advance Directive(s) 05/08/2020 12:13 PM Documents on File Type Date Recorded Patient Protection Consultant Explanati on Advance Directive(s) 05/08/2020 12:13 PM Advance Directive(s) 05/25/2020 7:47 AM Documents on File Type Date Recorded Patient Protection Consultant Explanati on Advance Directive(s) 05/08/2020 12:13 PM Advance Directive(s) 05/25/2020 7:47 AM Documents on File Type Date Recorded Patient Protection Consultant Explanati on Advance Directive(s) 05/08/2020 12:13 PM Advance Directive(s) 05/25/2020 7:47 AM Advance Directive(s) 06/08/2020 9:30 AM Documents on File Type Date Recorded Patient Protection Consultant Explanati on Advance Directive(s) 05/08/2020 12:13 PM Advance Directive(s) 05/25/2020 7:47 AM Advance Directive(s) 06/08/2020 9:30 AM Documents on File Type Date Recorded Patient Protection Consultant Explanati on Advance Directive(s) 05/08/2020 12:13 PM Advance Directive(s) 05/25/2020 7:47 AM Advance Directive(s) 06/08/2020 9:30 AM Advance Directive(s) 06/19/2020 3:44 PM Documents on File Type Date Recorded Patient Protection Consultant Explanati on Advance Directive(s) 05/08/2020 12:13 PM [...] [address] [place] [address] [id number] Phone: Fax: Status Reason Specialty Diagnoses / Referred By Referred To Procedures Contact Contact Authorized PCP Requested Orthopedics Diagnoses Acute shoulder pain, unspecified laterality Marcelino Mejia Referral Procedures CONSULT TO ORTHOPAEDICS NEW PATIENT VISIT LEVEL [address] [place] [address] Status Reason Specialty Diagnoses / Referred By Referred To Procedures Contact Contact Pending Review Auto-Generated MR IMAGING Diagnoses Pancreatic cyst Mala Almendarez Mr Imaging Referral Procedures MRI ABDOMEN WO/W IVCON MRI,ABDOMEN,W&WO CONTRS [address] [facility] [address] [place] [address] Status Reason Specialty Diagnoses / Procedures Referred By Kimmie davis Referred To Contact Closed Diagnoses Post-op pain Mala Almendarez [address] [facility] [address] [place] [address] Phone: Health Concerns Infection Onset Date Last [...] BE BASED ON THE PRIMARY CLINICAL RECORDS. [facility] provides no warranty or guarantee of [...] any alcohol or drug abuse patient.[facility] the event this information is protected by the Federal Confidentiality of Alcohol and Drug Abuse Patient Records regulations: The Federal rules restrict any use of the information to criminally investigate or prosecute any alcohol or drug abuse patient.[facility] the event this information is protected by the Federal Confidentiality of Alcohol and Drug Abuse Patient Records regulations: The Federal rules restrict any use of the information to criminally investigate or prosecute any alcohol or drug abuse patient.[facility] the event this information is protected by the Federal Confidentiality of Alcohol and Drug Abuse Patient Records regulations: The Federal rules restrict any use of the information to criminally investigate or prosecute any alcohol or drug abuse patient.[facility] the event this information is protected by the Federal Confidentiality of Alcohol and Drug Abuse Patient Records regulations: The Federal rules restrict any use of the information to criminally investigate or prosecute any alcohol or drug abuse patient.[facility] the event this information is protected by the Federal Confidentiality of Alcohol and Drug Abuse Patient Records regulations: The Federal rules restrict any use of the information to criminally investigate or prosecute any alcohol or drug abuse patient.[facility] the event this information is protected by the Federal Confidentiality of Alcohol and Drug Abuse Patient Records regulations: The Federal rules restrict any use of the information to criminally investigate or prosecute any alcohol or drug abuse patient.[facility] the event this information is protected by the Federal Confidentiality of Alcohol and Drug Abuse Patient Records regulations: The Federal rules restrict any use of the information to criminally investigate or prosecute any alcohol or drug abuse patient.[facility] the event this information is protected by the Federal Confidentiality of Alcohol and Drug Abuse Patient Records regulations: The Federal rules restrict any use of the information to criminally investigate or prosecute any alcohol or drug abuse patient.[facility] the event this information is protected by the Federal Confidentiality of Alcohol and Drug Abuse Patient Records regulations: The Federal rules restrict any use of the information to criminally investigate or prosecute any alcohol or drug abuse patient.[facility] the event this information is protected by the Federal Confidentiality of Alcohol and Drug Abuse Patient Records regulations: The Federal rules restrict any use of the information to criminally investigate or prosecute any alcohol or drug abuse patient.[facility] the event this information is protected by the Federal Confidentiality of Alcohol and Drug Abuse Patient Records regulations: The Federal rules restrict any use of the information to criminally investigate or prosecute any alcohol or drug abuse patient.[facility] the event this information is protected by the Federal Confidentiality of Alcohol and Drug Abuse Patient Records regulations: The Federal rules restrict any use of the information to criminally investigate or prosecute any alcohol or drug abuse patient.[facility] the event this information is protected by the Federal Confidentiality of Alcohol and Drug Abuse Patient Records regulations: The Federal rules restrict any use of the information to criminally investigate or prosecute any alcohol or drug abuse patient.[facility] the event this information is protected by the Federal Confidentiality of Alcohol and Drug Abuse Patient Records regulations: The Federal rules restrict any use of the information to criminally investigate or prosecute any alcohol or drug abuse patient.[facility] the event this information is protected by the Federal Confidentiality of Alcohol and Drug Abuse Patient Records regulations: The Federal rules restrict any use of the information to criminally investigate or prosecute any alcohol or drug abuse patient.[facility] the event this information is protected by the Federal Confidentiality of Alcohol and Drug Abuse Patient Records regulations: The Federal rules restrict any use of the information to criminally investigate or prosecute any alcohol or drug abuse patient.[facility] the event this information is protected by the Federal Confidentiality of Alcohol and Drug Abuse Patient Records regulations: The Federal rules restrict any use of the information to criminally investigate or prosecute any alcohol or drug abuse patient.[facility] the event this information is protected by the Federal Confidentiality of Alcohol and Drug Abuse Patient Records regulations: The Federal rules restrict any use of the information to criminally investigate or prosecute any alcohol or drug abuse patient.[facility] the event this information is protected by the Federal Confidentiality of Alcohol and Drug Abuse Patient Records regulations: The Federal rules restrict any use of the information to criminally investigate or prosecute any alcohol or drug abuse patient.[facility] the event this information is protected by the Federal Confidentiality of Alcohol and Drug Abuse Patient Records regulations: The Federal rules restrict any use of the information to criminally investigate or prosecute any alcohol or drug abuse patient.[facility] the event this information is protected by the Federal Confidentiality of Alcohol and Drug Abuse Patient Records regulations: The Federal rules restrict any use of the information to criminally investigate or prosecute any alcohol or drug abuse patient.[facility] the event this information is protected by the Federal Confidentiality of Alcohol and Drug Abuse Patient Records regulations: The Federal rules restrict any use of the information to criminally investigate or prosecute any alcohol or drug abuse patient.[facility] the event this information is protected by the Federal Confidentiality of Alcohol and Drug Abuse Patient Records regulations: The Federal rules restrict any use of the information to criminally investigate or prosecute any alcohol or drug abuse patient.[facility] the event this information is protected by the Federal Confidentiality of Alcohol and Drug Abuse Patient Records regulations: The Federal rules restrict any use of the information to criminally investigate or prosecute any alcohol or drug abuse patient.[facility] UNRECOGNIZED CONTENT PROVIDED BELOW FOR UNRECOGNIZED SECTION [...] dyspepsia,gerd,dysphagia 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, 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 Johnny Winn, Johnny ENDOSCOPY Procedures COLONOSCOP W/ OR W/O BRSH SPEC EGD W/O OR W/BRUSH/WASH COLONOSCOPY W/EGD [place] [address] [place], [place] [address] Phone: [place], [place] [phone] Fax: Reason Onset Date Comments Patient [...] DATE CREATED AUTHOR AUTHOR'S ORGANIZATIO N 10/21/2019 [facility] DATE CREATED AUTHOR AUTHOR'S ORGANIZATIO N 04/06/2020 [facility] DATE CREATED AUTHOR AUTHOR'S ORGANIZATIO N 02/26/2020 [facility] ([place]) DATE CREATED AUTHOR AUTHOR'S ORGANIZATIO N 06/21/2020 [facility] DATE CREATED AUTHOR AUTHOR'S ORGANIZATIO N 06/27/2020 [facility] DATE CREATED AUTHOR AUTHOR'S ORGANIZATIO N 06/28/2020 [facility] UNRECOGNIZED CONTENT PROVIDED BELOW FOR UNRECOGNIZED [...] panel was not drawn, left message with [facility] to contact patient for redraw Pierce [...] ER consult due to worsening of symptoms. Peirce Schwartz MA documented in this encounterTelephone Encounter [...] or do not improve. Taty Perea APRN [employer] CONSULTING ARCHITECT documented in this encounterTelephone Encounter - Narcisa [...]
== END 2020-02-18 18:41 | disposition home or self-care (01) ==
PROVIDERS: Emergency Provider Emergency Medicine; PCP Family Medicine
DX: K85.90 Acute pancreatitis without necrosis or infection, unspecified (principal); F17.200 Nicotine dependence, unspecified, uncomplicated
CPT/HCPCS: 80048; 80076; 82150; 83690; 84702; 84703; 85025; 96360; 99285; J7030; A4216

== ENCOUNTER 2020-02-20 13:50 | Emergency (ER) | payer MEDICAID, SELFPAY ==
[2020-02-20 13:51] VITALS: BP 105/80; PULSE 78; RESP 20; TEMP 37.1; O2SAT 100; BMI 34.9
--- NOTE | 2020-02-20 14:05 | ED.DCSUM_ITS ---
- ER Visit Summary Date of Service: 02/20/20 Chief Complaint: Abdominal pain History of Present Illness: The patient is a 39 F who presents with abdominal pain. She has had this for a couple of days. She was seen here 2 days ago and diagnosed with pancreatitis with a lipase level of 800. She is sent home with OxyIR and was told to follow-up with her PCP. She continues to have pain in her epigastric and right upper quadrant. Nothing makes it better or worse. She has had nausea without vomiting. No diarrhea. No urinary symptoms. She denies any alcohol use. She has had a cholecystectomy in the past. She has been seen here many times for chronic pain and currently has a care plan in place. Physical Examination: Vital signs reviewed. HEENT exam unremarkable. Heart is regular rate and rhythm without murmurs. Lungs are clear to auscultation. Abdomen is soft with epigastric and right upper quadrant tenderness. Extremities reveal no edema. Skin exam normal. Neurologic exam normal. Test Results: Laboratory studies unremarkable except for hemoglobin 11.5 and lipase of 566. Urinalysis negative for infection or blood Emergency Department Course and Treatment: Patient was given morphine and Zofran . Her pain was not improved I gave her IV fentanyl. At this time her lipase is improving. I do not feel she needs admission or transfer. She already has oxycodone to take at home. I would not give her any more narcotics that she does have a care plan. She will need to call her PCP for follow-up Treatment Plan: [] Disposition: Discharge Impression: Acute pancreatitis, subsequent visit This note was generated with [employer] dictation software. It may contain incorrect words, spelling, and punctuation that were not noted in review of the chart prior to signing ED Disposition - Plan for ED Patient: Disposition: Home or Assisted Living Instructions: Acute Pancreatitis Referrals: Marcelino Albert MD [Primary Care Provider] -
[2020-02-20] MEDS: Morphine 4 MG/ML Syringe IV (14:16)
[2020-02-20] MEDS: Ondansetron 4 MG/2 ML Vial IV (14:16)
[2020-02-20 14:18] LABS: Absolute Lymphocyte Count 2.83 X10^3/uL (0.83-4.51); Basophil# 0.06 X10^3/uL; Basophil% 0.8 % (0-1); Eosinophil# 0.31 X10^3/uL; Eosinophils% 4.1 % (0-5); Hematocrit 37.3 % (37-47); Hemoglobin 11.5 g/dL (12.0-15.0); Lymphocyte # 2.83 X10^3/ul (4.0); Mean Corp Hgb Conc 30.8 g/dL (32-36); Mean Corpuscular Hgb 29.1 pg (27.0-32.0); Mean Corpuscular Volume 94.4 fL (81-99); Monocyte# 0.43 X10^3/uL; Monocyte% 5.6 % (0-10); NRBC Flagged by Analyzer 0 % (0-5); Neutrophil # 3.98 X10^3/uL (2.7-7.7); Neutrophil % 52.1 % (47-70); Platelet Count 319 K/mm3 (150-450); RBC Distribution Width CV 13.9 % (11.6-14.6); RBC Distribution Width SD 48.8 fl (35.1-43.9); Red Blood Count 3.95 M/mm3 (4.2-5.4); White Blood Count 7.6 K/mm3 (4.4-11.0)
[2020-02-20 14:27] LABS: ALB/GLOB Ratio 0.9 RATIO (0.9-2.4); AST(SGOT) 18 U/L (15-37); Alanine Aminotransfer ALT/SGPT 30 U/L (13-56); Albumin, Serum 3.7 g/dL (3.2-5.0); Alkaline Phosphatase 103 U/L (45-117); Anion Gap 7 (5-15); BUN 11 mg/dL (7-18); BUN/Creat Ratio 12.5 RATIO (10-20); Calcium,Total 9.2 mg/dL (8.5-10.1); Chloride 108 mmol/L (98-107); Creatinine, Serum 0.88 mg/dL (0.55-1.02); EST Glomerular Filtration Rate 75 mL/min (>60); Est Glom Filt Rate - Afr Amer 91 mL/min (>60); Estimated Creatinine Clearance 64.13 ml/min; Globulin 4.1 g/dL (2.2-4.2); Glucose 91 mg/dL (74-106); Lipase 566 U/L (73-393); Potassium 3.6 mmol/L (3.5-5.1); Protein, Total 7.8 g/dL (6.4-8.2); Sodium Level 141 mmol/L (136-145)
[2020-02-20 14:53] LABS: Bacteria 0 SEEN /hpf (None Seen); Mucous, Urine 0 SEEN /hpf (<or=2+); White Blood Cells 0 SEEN /hpf (0-5)
[2020-02-20 15:22] LABS: Color, Urine Yellow (Yellow); Glucose, Dipstick Normal (Normal); Ketone-Dipstick Negative (Negative); Leukocyte Esterase-Dipstick Negative /ul (Negative); Nitrite-Dipstick Negative (Negative); Occult Blood-Urine 10 /ul (Negative); Protein-Dipstick Negative (Negative); Urine Bilirubin Dipstick Negative (Negative); Urine Clarity Sl. Cloudy (Clear); Urine Urobilinogen Normal (Normal); Urine pH 6.5 (5.0 - 8.0)
[2020-02-20 15:30] LABS: Squamous Epithelial Cells - UA 0-5 SEEN /hpf (5-10)
[2020-02-20 15:31] LABS: Red Blood Cells-Urine 0-5 SEEN /hpf (0-5)
[2020-02-20] MEDS: fentaNYL 100 MCG/2 ML Ampul 50 MCG IV (15:43)
[2020-02-20 15:48] VITALS: BP 108/71; PULSE 80; RESP 16; O2SAT 98
--- OUTSIDE RECORDS SUMMARY | 2020-07-01 09:45 | XMS RPT_ITS | CCD ---
:1980 External Reference #:[id number] Author Organization [facility] Care Team Providers Name Role Phone Hanna [...] Cephalexin Itching 10-20-2019 - [facility] ([id number]) Chlorhexidine Rash 10-29-2016 - [facility] (50923) CONTRAST MEDIA, Moderate Mello Pomeren e IODINE RELATED ([facility]) Repository (Qualifier Value) Ibuprofen GI Upset Low 06-18-2016 - [facility] (68753) Ibuprofen Moderate Mello Pomerene ([facility]) Repository (Qualifier Value) Iodine Shortness of Breath Low 05-17-2008 - [facility] (66153) Ketorolac Moderate Mello Pomerene ([facility]) Repository (Qualifier Value) Ketorolac Rash 05-25-2020 - [facility] (05965) metroNIDAZOLE Moderate Mello Pomerene ([facility]) Repository (Qualifier Value) Penicillins Rash Moderate [facility]63894[facility] Penicillins Moderate Mello Pomerene ([facility]) Repository (Qualifier Value) predniSONE Other: See Comments Low 06-18-2016 - [facility] (68565) Promethazine Moderate Mello Pomerene ([facility] Mod[facility]) Repository (Qualifier Value) Salicylic Acid Other: See Comments Low 01-27-2011 - [facility] (57003) traMADol Rash 05-25-2020 - [facility] (71244) Medications Medication Name Sig Date Prescriber Location Albuterol albuterol HFA (VENTOLIN [facility] Provider [facility] ([id number]) HFA) 90 mcg/actuation inhaler Inhale 2 Puffs as instructed every 4 hours as needed. 0 Active Comment: Inhale 2 Puffs as instructed every 4 hours as needed. Bifidobacterium Bifidobacterium 04-26-2020 - [facility] Infantis (ALIGN) 4 mg 07-25-2020 [facility] (16098) cap Take 1 capsule by mouth once daily. 30 capsule 2 04/26/2020 07/25/2020 Active Comment: Take 1 capsule by mouth once daily. Clindamycin clindamycin (CLEOCIN) 06-15-2020 - Jonh (Res) [facility] 300 mg capsule 06-26-2020 [facility] (72285) Indications: Incisional infection Take 1 capsule by mouth four times daily for 5 days. 20 capsule 0 06/21/2020 06/26/2020 Active Comment: Take 1 capsule by mouth four times daily for 5 days. diazePAM diazePAM (VALIUM) 5 mg 06-05-2020 - [facility] tablet Indications: 06-07-2020 Mala [facility] (00039) Pancreatic cyst Take 1 tablet by mouth once daily for 2 days. 2 tablet 0 06/05/2020 06/07/2020 Active Comment: Take 1 tablet by mouth once daily for 2 days. Dicyclomine dicyclomine (BENTYL) 04-26-2020 - Johnny Mccall [facility] 10 mg capsule Take 1 05-24-2020 [facility] (09290) capsule by mouth before meals and at bedtime. Use as directed 90 capsule 1 04/26/2020 05/24/2020 Discontinued Comment: Take 1 capsule by mouth befo re meals and at bedtime. Use as directed diphenhydrAMINE diphenhydrAMINE (BENADRYL) 03-29-2019 [facility] Provide r [facility] 25 mg capsule Take 50 mg (44 195) by mouth every 6 hours as needed. 0 03/29/2019 Active Comment: Take 50 mg by mouth every 6 hours as needed. Docusate docusate sodium 06-21-2020 Jonh (Res) [facility] (COLACE) 100 mg capsule [place] (441 95) Take 1 capsule by mouth twice daily. 60 capsule 0 06/21/2020 Active Comment: Take 1 capsule by mouth twic e daily. Estradiol estradiol (ESTRACE) 2 mg 03-23-2020 [facility] Provider [facility] (63454) tablet Take 2 mg by mouth once daily. 0 03/23/2020 Active Comment: Take 2 mg by mouth once kehinde y. HYDROmorphone HYDROmorphone 06-28-2020 - Mala Counts Include [facility] ng[facility]ia (HYDROMORPHONE) 2 mg 07-05-2020 (48569) tablet Indications: Post-op pain Take 1 tablet by mouth every 4 hours as needed for Pain for up to 7 days. 40 tablet 0 06/28/2020 07/05/2020 Active HYDROmorphone (HYDROMORPHONE) 06-12-2020 - 06-19-2020 [facility] 2 mg tablet Indications: (99816) Post-op pain Take 1 tablet by mouth [...] Hyoscyamine hyoscyamine (LEVSIN) 05-24-2020 - [facility]cc[facility] 0.125 mg tablet Take 06-26-2020 [facility] (80074) 1 tablet by mouth every 6 hours as needed. 60 tablet 1 06/26/2020 Active Comment: Take 1 tablet by mouth every 6 hours as needed. iv contrast (will iv contrast (will be 06-05-2020 - Mala Almendarez [facility] be provided with provided with 06-06-2020 Mala Almendarez (16459) radiology test) radiology test) MRI ABDOMEN Inject, [...] metroNIDAZOLE metroNIDAZOLE (FLAGYL) 04-26-2020 - Johnny Mccall [facility] 500 mg tablet Take 1 05-03-2020 [facility] (60431) tablet by mouth three times daily for 7 days. 21 tablet 0 04/26/2020 05/03/2020 Active Comment: Take 1 tablet by mouth three times daily for 7 days. Naloxone naloxone 4 mg/actuation 06-21-2020 Jonh (Res) [facility] nasal spray (NARCAN) Use [place] (95 195) 1 spray in one nostril as [...] oxyCODONE IR 06-21-2020 - Maria Luisa Trejo [facility] (ROXICODONE) 5 mg 06-26-2020 (28721) immediate release tablet Indications: Benign liver cyst Take 1 tablet by mouth every 8 hours as needed for up to 5 days. 15 tablet 0 06/21/2020 06/26/2020 Active oxyCODONE IR 05-29-2020 - Sorin (Res) [facility] (ROXICODONE) 5 mg 06-03-2020 Alhalalmeh (56906) immediate release tablet Indications: Intractable nausea and [...] Cl inic (PROTONIX) 40 mg 04-30-2020 [facility] (42960) tablet Take 1 tablet by mouth daily before breakfast. Take on empty stomach, 1/2 hr before meal. 30 tablet 3 04/30/2020 Active Comment: Take 1 tablet by mouth daily before breakfast. Take on empty stomach, 1/2 hr before meal. POLYETHYLENE GLYCOL polyethylene glycol 06-21-2020 - Jonh ([facility] [id number] 3350 (MIRALAX) 17 07-22-2020 [facility] (44 195) gram/dose powder Dissolve 1 packet in 4-8 ounces of liquid and drink by mouth once daily as directed. 476 g 0 06/21/2020 07/22/2020 Active Comment: Dissolve 1 packet in 4-8 oun simi of liquid and drink by mouth once daily as directed. POLYETHYLENE GLYCOL peg 3350-Electrolytes 04-26-2020 - Johnny Mccall [place] 3350 / Potassium (GOLYTELY) 04-26-2020 [facility] (441 95) Chloride / Sodium [id number] -5.86 Johnny Mccall Bicarbonate / gram suspension [facility] Sodium Chloride / Indications: sodium sulfate Generalized [...] 1 mg cap Take 1 [facility] Provider [facility] (34143) mg by mouth daily at bedtime. 0 Active Comment: Take 1 mg by mouth daily at bedtime. pregabalin pregabalin (LYRICA) 300 06-25-2020 - Mala Almendarez [facility] mg capsule Indications: 07-09-2020 (441 95) Post-op pain Take 1 capsule by mouth twice daily for 14 days. 28 capsule 0 06/25/2020 07/09/2020 Active Comment: Take 1 capsule by mouth twic e daily for 14 days. Promethazine promethazine (PHENERGAN) 05-24-2020 [facility] 25 mg tablet Take 1 [facility] (40661) tablet by mouth every 8 hours as needed (for nausea). 10 tablet 0 05/24/2020 Active Comment: Take 1 tablet by mouth every 8 hours as needed (for nausea). QUEtiapine QUEtiapine (SEROQUEL) 02-23-2020 [facility] Take 1 (71324) tablet by mouth once daily. 0 02/23/2020 Active Comment: Take 1 tablet by mouth once daily. Sertraline sertraline (ZOLOFT) 100 02-23-2020 Marcelino Ferreira [facility] mg tablet Take 1 tablet (441 95) by mouth once daily. 0 02/23/2020 Active Comment: Take 1 tablet by mouth once daily. Sucralfate sucralfate (CARAFATE) 1 05-24-2020 [facility] hu [facility] gram tablet Take 1 (13689) tablet by mouth four times daily. 30 tablet 0 05/24/2020 Active Comment: Take 1 tablet by mouth four times daily. Problems Active Problems Category Problem Name Status Date Location Abdominal pain Lower abdominal pain, Active 10-31-2019 - Mello Johnston unspecified [facility] (15624) Anxiety disorders Generalized anxiety Active 03-31-2016 - [facility] disorder (55361) Esophageal disorders Gastroesophageal reflux Active [facility] disease (55341) Headache; including Migraine without aura Active 05-17-2008 [facility] (06812) Mood disorders Reactive depression Active 03-31-2016 - [facility] (situational) (91574) Nausea and vomiting Nausea and vomiting Active 05-25-2020 - [facility] (72277) Other disorders of Indigestion Active [facility] stomach and duodenum (61966) Other gastrointestinal Abdominal bloating Active [facility] disorders (29236) Other gastrointestinal Dysphagia Active [facility] disorders (53925) Other gastrointestinal Loose stool Active [facility] disorders (36255) Other gastrointestinal Personal history of Active [facility] disorders other diseases of the (69602 ) digestive system Other gastrointestinal Diarrhea Active [facility] disorders (46816) Other infections; Local infection of wound Active [facility] including parasitic (96376) Other liver diseases Liver cyst Active 05-24-2010 - [facility] (56416) Other nervous system Postoperative pain Active 06-19-2020 - [facility] disorders (86100) Other nervous system Chronic pain syndrome Active 06-06-2020 - [facility] disorders (78029) Other non-traumatic joint Shoulder pain Active [facility] disorders (76756) Other upper respiratory Allergic rhinitis Active 05-17-2008 - [facility] disease (32600) Pancreatic disorders (not Idiopathic acute Active [facility] diabetes) pancreatitis (70785) Paralysis Weakness of right leg Active 02-23-2017 - [facility] (45056) Substance-related Smoker Active 05-17-2008 - Melloreina Baumaner willem disorders [facility] (85805) Unclassified Patient encounter status Active 05-17-2008 - [facility] (20685) Past or Other Problems Category Problem Name Status Date Location Allergic reactions Allergy status to Completed 10-31-2019 - Mello Pomeremirtha narcotic agent status [facility] (66212) Blindness and vision Blurring of visual Completed 02-23-2017 - [facility] defects image (89158) Calculus of urinary Kidney stone Completed 05-17-2008 - [facility] tract (33839) Diabetes mellitus Impaired fasting Completed 05-17-2008 - [facility] without complication glycaemia (18340) Miscellaneous mental Adjustment insomnia Completed 03-31-2016 - [facility] health disorders (69484) Other connective tissue Muscle weakness of Completed 02-23-2017 - [facility] disease upper limb (98364) Other connective tissue Trochanteric bursitis Completed 06-18-20 16 - [facility] disease (59564) Other diseases of Hydroureter Completed 02-05-2017 - [facility] kidney and ureters (25166) Other diseases of Hydronephrosis Completed 02-05-2017 - [facility] kidney and ureters (84390) Other lower respiratory Multiple nodules of Completed 01-22-2020 - [facility] disease lung (38818) Other nervous system Numbness of face Completed 02-23-2017 - [facility] disorders (87249) Other nervous system Numbness of lower limb Completed 02-23-2017 - [facility] disorders (14392) Other nervous system Numbness of upper limb Completed 02-23-2017 - [facility] disorders (88741) Other non-traumatic Hip pain Completed 06-18-2016 - [facility] joint disorders (09684) Other screening for MRI of lumbar spine Completed 02-23-2017 - [facility] suspected conditions abnormal (13306) (not mental disorders or infectious disease) Ovarian cyst Cyst of ovary Completed 07-15-2012 - [facility] ic (05665) Residual codes; Acquired absence of Completed 10-31-2019 - [facility] unclassified both cervix and uterus [facility] (28860) Residual codes; Acquired absence of Completed 10-31-2019 - [facility] unclassified other specified parts [facility] of digestive tract (04760) Residual codes; FH: Diabetes mellitus Completed 05-17-2008 - [facility] unclassified (44417) Spondylosis; Pain in cervical spine Completed 06-18-2016 - [facility] intervertebral disc (02597) disorders; other back problems Results Result Name Value Range Unit Interpretation Flag Date Location obsolete on 2020-06 OBSOLETE Refill (AKPRAD) Normal 06-28-2020 Akr on SALLY Dawson ([id number]) 1980 F Medical Date Time Provider Department Center 06/28/20 MALA ALMENDAREZ (97182) During your visit today, we recorded the [...] OBSOLETE Refill (GSTNOR) Normal 06-26-2020 Isaías veland [facility] SALLY VARGAS ([id number]) 1980 [facility] Time Provider Department (03184) 06/26/20 JOHNNY WINN GSTNOR During your visit [...] Normal 06-25-2020 [facility] on General SALLY VARGAS ([id number]) 1980 F Medical Date Time Provider Department Center 06/25/20 MALA ALMENDAREZ (03230) During your visit today, we recorded the [...] 06/25/20 progress on 2020-06 PROGRESS HNO ID: [id number] Normal 06-21-2020 Milka Dumont Author: Maria Luisa Joyner [facility] Service: Pain Management (67454) Author Type: Physician Type: Progress Notes Filed: [...] Approx. 3 cigarettes daily-1 pack every w [place] Substance Use Topics - Alcohol use: Yes [...] and migraine headache. She was referred to [place] pain management but was unable to go [...] care on PLAN OF CARE HNO ID: [id number] Normal 06-21-20 [facility] Author: Bekah Holman (Pharmacist) [place] (01847) Service: Pharmacy Author Type: Pharmacist Type: Plan [...] PHARMACIST June 21, 2020 11:55 AM Pager: [phone] 06/21/2020 11:55 AM Medication List START taking [...] Your Medications These medications were sent to [facility] [address] [place] [address] Hours: Thursday-Thursday, 8am-6:30pm ? clindamycin 300 mg capsule ? docusate sodium 100 mg capsule ? naloxone 4 mg/actuation nasal spray ? oxyCODONE IR 5 mg immediate release tablet ? polyethylene glycol 3350 17 gram/dose powder nursing prog on NURSING HNO ID: [id number] Normal 06-21-2020 [employer] PROG Author: Silvia (Lucius) LUCIUS Gomez General Service: ? Medical Author Type: Registered Nurse Center Type: Nursing Progress Note ([id number]) Filed: 06/20/2020 11:32 PM Note Text: Nursing Progress Note Patient Name: Sally Vargas Patient Location: [id number] Pt has been eating better and was told by the doctor that wh en her intake improved the fluids could be discontinued. Pt does not want fluids to continue so RN stopped fluids on pt's request. Doctor note i ndicated what the pt said. This note was completed by: Silvia Gomez RN progress on 2020-06 PROGRESS HNO ID: [id number] Normal 06-20-2020 Milka Author: Jonh Urrutia DO General Service: General Surgery Medical Author Type: Resident Center Type: Progress Notes ([id number]) Filed: 06/20/2020 8:38 AM Note Text: Attestation signed by Mala Almendarez at 06/20/2020 2:18 PM I saw and evaluated the patient. Discussed with the reside nt and agree with resident's findings and plan as documented in the resident's note. [facility] General Surgery Progress Note SERVICE DATE: 06/20/2020 [facility] Service Pager: For questions or concerns Mon-Fri 6a-5p please page [phone]. After 5pm and on Weekends and Holidays, please page [phone]. SUBJECTIVE: Doing better this morning. Says pain [...] - enteric contrast (radiology procedure) ORAL DIRECTED CA N - oxyCODONE IR 5-10 mg tab(s) [...] care on PLAN OF CARE HNO ID: [id number] Normal 06-20-20 [facility] (43734[facility] Service: General Surgery Author Type: Resident Type: [...] history physical on 2020-06-20 HISTORY HNO ID: [id number] Normal 06-20-2020 [employer] PHYSICAL Author: Nancy Abebe General Service: General Surgery Medical Author Type: Resident Center Type: [facility] ([id number]) Filed: 06/19/2020 11:38 PM Note Text: Attestation signed by Mala Almendarez at 06/20/2020 2:18 PM Attending Note I personally saw and examined the patient. I reviewed the resident's note. I agree with the resident's assessment and plan with [facility] revisions and/or additions: CT scan [...] get worse. She was se nt to [place] ED, where she was given IV Dilauded [...] Benign liver cyst 05/24/2010 CT scan at [facility] 11/2009 and 04/2010 showe 4 mm increase in size . No pain. No elevated LFTs on 03/11/2010. - Calculus of kidney 05/17/[address] Nicolas: Hospitalized age 20, and again later -- no procedures so far ([facility], most, 1995 [facility]) - Cancer (HCC) - Diverticulosis - [...] removed - TOTAL ABDOM HYSTERECTOMY 08/31/06 Hysterectomy, [facility]ILY H[facility]ORY Problem Relation Age of [...] Approx. 3 cigarettes daily-1 pack every w [place] Substance Use Topics - Alcohol use: Yes [...] oz (86.0kg) SpO2 100% LMP 08/10/2006 [place] 35.84 kg/(m2). O2 Therapy: Room Air DATA: [...] questions or concerns Mon-Fri 6a-5p please page [phone]. After 5pm and on Weekends and Holidays, please page [phone] if in ICU or [phone] if [address] abd/pel w ivcon on 2020-06-20 CT ABD/PEL W Final Report Normal 06-20-2020 Akr on General IVCON DATE OF EXAM: Jun 20 2020 11:59[facility] 0530 - CT ABD/PEL W IVCON / (63492) PROCEDURE REASON: Abd pain, unspecified Physician Interpretation [...] ed portions of the heart are unremarkable. Plate Take Out Worker (topogram) images: No additional findings. IMPRESSION: 1. Postsurgical changes in the posterior right hepatic dome with residual 8.3 cm cystic cavity with trace likely postsurgical gas, but no peripheral enhancement to suggest acute inflammation. 2. Other hepatic cyst are unchanged. 3. No acute intra-abdominal or pelvic findings. Trim Technician: PSCB Transcribe Date/Time: Jun 20 2020 12:16P Dictated by : NILAM OVIEDO MD This examination was interpreted and the report reviewed and electronically signed by: NILAM OVIEDO MD on Jun 20 2020 12:28PM EST consult on CONSULT HNO ID: [id number] Normal 06-20-2020 [employer] [facility] Author: Maria Luisa Joyner [facility] Service: Pain Management (35360) Author Type: Physician Type: Consults Filed: 06/20/2020 [...] - enteric contrast (radiology procedure) ORAL DIRECTED CA N Kaushal (Res) DO Grupo - oxyCODONE [...] 300 mg capsule, Take 1 capsule by [facility] four times daily for 5 days., Disp: [...] Approx. 3 cigarettes daily-1 pack every w [place] Substance Use Topics - Alcohol use: Yes [...] and migraine headache. She was referred to [place] pain management but was unable to go [...] health on 03-07-07 ALL[facility] HNO ID: [id number] Normal 020 [facility] Author: Holly (Rt) [facility] Service: Radiology ( 54032) Author Type: Housekeeping Lead Type: Allied Health Filed: 06/20/2020 12:04 PM [...] unstable renal function, e.g. those with ac te-moak kidney injury, the eGFR may not accurately reflect actual GFR. eGFR- Date Value Ref Range Status 06/19/2020 >60 Final 02/15/2020 >60 Final P.O.C.T. RESULTS: N/A June 20, 2020 TREATMENT: N/A and No Hydration needed. PERIPHERAL IV DATA: Inpatient - refer to [facility] documentation RADIOLOGY DEPARTMENT: CT; Exam(s) Completed: Abdomen/Pelvis SIGNATURE: Holly Huntley, RT PATIENT NAME: Sally caldwell DATE: June 20, 2020 TIME: 11:59 AM comp metab 1999 pnl serpl on 2020-06-19 Albumin [Mass/Vol] 4.3 3.9-4.9 g/dL Normal 06-19-2020 [facility] (59279) Comment: Order Comment: Specimen Type : BLOOD SPECIMEN Performed By: #### 15075-6 # ###[facility]IA [id number] [facility] [address] ALP [Catalytic activity/Vol] 110 34-123 U/L Normal 1 [facility] (00 000) Comment: Order Comment: Specimen Type : BLOOD SPECIMEN Performed By: #### 91047-1 # ###[facility] [id number] [facility] [place] [place] [address] ALT With P-5'-P [Catalytic 16 7-38 U/L Normal [facility] activity/Vol] [place] (23853) Comment: Order Comment: Specimen Type : BLOOD SPECIMEN Performed By: #### 78484-5 # ###[facility] [id number] [facility] [place] [place] [address] Anion gap [Moles/Vol] 13 9-18 mmol/L Normal 06-19-20 20 [facility] (91079) Comment: Order Comment: Specimen Type : BLOOD SPECIMEN Performed By: #### 98691-5 # ###[facility] [id number] [facility] [place] [address] AST With P-5'-P [Catalytic 19 13-35 U/L Normal [facility] Medical activity/Vol] [place] (14584) Comment: Order Comment: Specimen Type : BLOOD SPECIMEN Performed By: #### 70676-7 # ###[facility] [id number] [facility] [address] Bilirubin [Mass/Vol] 0.2 0.2-1.3 mg/dL Normal 0 [facility] (28166) Comment: Order Comment: Specimen Type : BLOOD SPECIMEN Performed By: #### 57389-8 # ###[facility]ORYCLIA [id number] [facility] [place] [address] Calcium [Mass/Vol] 9.1 8.5-10.2 mg/dL Normal 06-19-2020 [facility] (47077) Comment: Order Comment: Specimen Type : BLOOD SPECIMEN Performed By: #### 41818-9 # ###[facility]ORYCLIA [id number] [facility] [place] [place] [address] Chloride [Moles/Vol] 102 97-105 mmol/L Normal 0 [facility] (74598) Comment: Order Comment: Specimen Type : BLOOD SPECIMEN Performed By: #### 83790-5 # ###[facility]ORYCLIA [id number] [facility] [place] [place] [address] CO2 [Moles/Vol] 22 22-30 mmol/L Normal 06-19-2020 [facility] (18500) Comment: Order Comment: Specimen Type : BLOOD SPECIMEN Performed By: #### 67119-0 # ###[facility]ORATORYCLIA [id number] [facility] [place] [place] [address] Creatinine [Mass/Vol] 0.88 0.58-0.96 mg/dL Normal 06-19-20 20 [facility] (00 000) Comment: Order Comment: Specimen Type : BLOOD SPECIMEN Performed By: #### 64406-5 # ###[facility]ORYCLIA [id number] [facility] [place] [place] [address] GFR/1.73 sq M.predicted >60 mL/min/{1.73_m2} Normal 06-19-2020 [facility] MDRD (S/P/Bld) [[facility] rate/Area] (76158) Comment: Order Comment: Specimen Type : BLOOD [...] accurately reflect actual GFR. Performed By: #### 23617-5 # ###[facility]ORATORYCLIA [id number] [place] [place] [address] Glucose [Mass/Vol] 100 74-99 mg/dL High 06-19-2020 [facility] (17046) Comment: Order Comment: Specimen Type : BLOOD SPECIMEN Result Comment: The [place] [employer] (ADA) provides guidance for cutoff [...] for diagnosis of diabetes. Reference: Standards of [facility] Care in Diabetes 2016, [place] [employer]. Diabetes Care. 2016.39(Suppl 1). Performed By: #### 12368-4 # ###[facility] LABORATORYCLIA [id number] [facility] [address] Potassium [Moles/Vol] 3.8 3.7-5.1 mmol/L Normal 06-19-20 [facility] (00 000) Comment: Order Comment: Specimen Type : BLOOD SPECIMEN Performed By: #### 62967-2 # ###[facility] LABORATORYCLIA [id number] [facility] [place] [place] [address] Protein [Mass/Vol] 7.7 6.3-8.0 g/dL Normal 06-19-2020 [facility] (36348) Comment: Order Comment: Specimen Type : BLOOD SPECIMEN Performed By: #### 62846-3 # ###[facility]ORATORYCLIA [id number] [facility] [place] [address] Sodium [Moles/Vol] 137 136-144 mmol/L Normal 06-19-2020 [facility] (88342) Comment: Order Comment: Specimen Type : BLOOD SPECIMEN Performed By: #### 14853-2 # ###[facility]ATORYCLIA [id number] [facility] [place] [address] Urea nitrogen [Mass/Vol] 14 7-21 mg/dL Normal 06-19 [facility] (80380) Comment: Order Comment: Specimen Type : BLOOD SPECIMEN Performed By: #### 56080-3 # ###[facility]ORYCLIA [id number] [facility] [place] [address] cbc w auto diff bld on 2020-06-19 Basophils (Bld) [#/Vol] 0.08 <0.11 k/uL Normal 2019 [facility] (00 000) Comment: Order Comment: Specimen Type : BLOOD SPECIMEN Performed By: #### 43327-2 # ###[facility]ATORYCLIA [id number] [facility] [place] [address] Basophils/100 WBC (Bld) 0.7 % Normal 2019 [facility] (90466) Comment: Order Comment: Specimen Type : BLOOD SPECIMEN Performed By: #### 29990-2 # ###[facility]ORATORYCLIA [id number] [facility] [place] [address] Differential cell count method Auto Normal 06-19-2020 [facility] (00 000) Comment: Order Comment: Specimen Type : BLOOD SPECIMEN Performed By: #### 31588-1 # ###[facility]ATORYCLIA [id number] [facility] [place] [address] Eosinophils (Bld) [#/Vol] 0.71 <0.46 k/uL High 10 [facility] (00 000) Comment: Order Comment: Specimen Type : BLOOD SPECIMEN Performed By: #### 32807-4 # ###[facility]ORATORYCLIA [id number] [facility] [place] [address] Eosinophils/100 WBC (Bld) 6.0 % Normal [facility] (33479) Comment: Order Comment: Specimen Type : BLOOD SPECIMEN Performed By: #### 34508-8 # ###[facility]ORATORYCLIA [id number] [facility] [place] [address] Erythrocyte distribution 13.3 11.5-15.0 % Normal 06-19 [facility] width (RBC) [Ratio] Center (25889) Comment: Order Comment: Specimen Type : BLOOD SPECIMEN Performed By: #### 63261-1 # ###[facility] LABORATORYCLIA [id number] [facility] [place] [address] Hematocrit (Bld) [Volume 37.8 36.0-46.0 % Normal 06-19 [facility] fraction] Center (00 000) Comment: Order Comment: Specimen Type : BLOOD SPECIMEN Performed By: #### 40565-9 # ###[facility] LABORATORYCLIA [id number] [facility] [place] [address] Hemoglobin (Bld) 12.1 11.5-15.5 g/dL Normal 06-19-2020 [facility] [Mass/Vol] [place] (0 0000) Comment: Order Comment: Specimen Type : BLOOD SPECIMEN Performed By: #### 83570-3 # ###[facility] LABORATORYCLIA [id number] [facility] [place] [address] IMMATURE GRAN % 1.5 % Normal 06-19-2020 [facility] (50636) Comment: Order Comment: Specimen Type : BLOOD SPECIMEN Performed By: #### 90280-3 # ###[facility] LABORATORYCLIA [id number] [facility] [place] [address] IMMATURE GRAN ABS 0.18 <0.10 k/uL High 06-19-2020 [facility] (76232) Comment: Order Comment: Specimen Type : BLOOD SPECIMEN Result Comment: Differential confirmed by visual scan of peripheral blood smear slide Performed By: #### 01618-7 # ###[facility] LABORATORYCLIA [id number] [facility] [address] Lymphocytes (Bld) [#/Vol] 4.79 1.00-4.00 k/uL High [facility] () Comment: Order Comment: Specimen Type : BLOOD SPECIMEN Performed By: #### 70547-6 # ###[facility] LABORATORYCLIA [id number] [facility] [address] Lymphocytes/100 WBC (Bld) 40.6 % Normal [facility] (15000) Comment: Order Comment: Specimen Type : BLOOD SPECIMEN Performed By: #### 75056-1 # ###[facility] LABORATORYCLIA [id number] [facility] [address] MCH (RBC) [Entitic mass] 28.6 26.0-34.0 pg Normal 06-19 [facility] () Comment: Order Comment: Specimen Type : BLOOD SPECIMEN Performed By: #### 87777-3 # ###[facility] LABORATORYCLIA [id number] [facility] [address] MCHC (RBC) [Mass/Vol] 32.0 30.5-36.0 g/dL Normal 06-19-20 [facility] () Comment: Order Comment: Specimen Type : BLOOD SPECIMEN Performed By: #### 34236-3 # ###[facility] LABORATORYCLIA [id number] [facility] [address] MCV (RBC) [Entitic vol] 89.4 80.0-100.0 fL Normal 06-19 [facility] ( 000) Comment: Order Comment: Specimen Type : BLOOD SPECIMEN Performed By: #### 13602-7 # ###[facility] LABORATORYCLIA [id number] [facility] [address] Monocytes (Bld) [#/Vol] 0.53 <0.87 k/uL Normal 2019 [facility] ( 000) Comment: Order Comment: Specimen Type : BLOOD SPECIMEN Performed By: #### 76109-6 # ###[facility] LABORATORYCLIA [id number] [facility] [place] [address] Monocytes/100 WBC (Bld) 4.5 % Normal 2019 [facility] (09082) Comment: Order Comment: Specimen Type : BLOOD SPECIMEN Performed By: #### 88963-0 # ###[facility]ATORYCLIA [id number] [facility] [place] [address] Neutrophils (Bld) [#/Vol] 5.51 1.45-7.50 k/uL Normal [facility] (00 000) Comment: Order Comment: Specimen Type : BLOOD SPECIMEN Performed By: #### 61504-5 # ###[facility]ORATORYCLIA [id number] [facility] [place] [address] Neutrophils/100 WBC (Bld) 46.7 % Normal [facility] (96047) Comment: Order Comment: Specimen Type : BLOOD SPECIMEN Performed By: #### 35098-8 # ###[facility]ORATORYCLIA [id number] [facility] [place] [address] Nucleated RBC (Bld) <0.01 <0.01 10*3/uL Normal 06-19-2020 [facility] [#/Vol] [place] (00 000) Comment: Order Comment: Specimen Type : BLOOD SPECIMEN Performed By: #### 90106-3 # ###[facility]ORATORYCLIA [id number] [facility] [place] [address] Nucleated RBC/100 WBC 0.0 0.0 /100 WBC Normal 06-19-[address] [facility] (Bld) [Ratio] Center (81246) Comment: Order Comment: Specimen Type : BLOOD SPECIMEN Performed By: #### 40508-1 # ###[facility]ORATORYCLIA [id number] [facility] [place] [place] [address] Platelet mean volume (Bld) 10.4 9.0-12.[address] [facility] [Entitic vol] Center (60445) Comment: Order Comment: Specimen Type : BLOOD SPECIMEN Performed By: #### 70437-2 # ###[facility]ORATORYCLIA [id number] [facility] [place] [address] Platelets (Bld) [#/Vol] 324 150-400 k/uL Normal 2019 [facility] (00 000) Comment: Order Comment: Specimen Type : BLOOD SPECIMEN Performed By: #### 86832-3 # ###[facility] LABORATORYCLIA [id number] [facility] [place] [address] RBC (Bld) [#/Vol] 4.23 3.90-5.20 m/uL Normal 06-19-2020 [facility] (70120) Comment: Order Comment: Specimen Type : BLOOD SPECIMEN Performed By: #### 11733-2 # ###[facility] LABORATORYCLIA [id number] [facility] [address] RED CELL MORPH Normal Normal 06-19-2020 [facility] (50094) Comment: Order Comment: Specimen Type : BLOOD SPECIMEN Performed By: #### 90697-0 # ###[facility] LABORATORYCLIA [id number] [facility] [address] WBC (Bld) [#/Vol] 11.80 3.70-11.00 k/uL High 06-19-2020 [facility] (29997) Comment: Order Comment: Specimen Type : BLOOD SPECIMEN Performed By: #### 75926-2 # ###[facility] LABORATORYCLIA [id number] [facility] [place] [address] cnpn on 2020-06-15 CNPN Telephone (AGGENS6) Normal 06-15-2020 [employer] SALLY Dawson ([id number]) 1980 F Medical Date Time Provider Department Center 06/15/20 TATY PEREA (STAFF TRAINER, MATERIAL CONTROL CLERK) AGGENS6 (45991) During your visit today, we recorded the following informati on about you: Taty Perea APRN.MATERIAL CONTROL CLERK 06/15/2020 11:28 AM Signed Patient called the [...] have transportation. [facility] because they treat her poorly. I will send an RX to her pharmacy for an antibiotic. She is to notify the office if her symptoms worsen or do not improve. Taty Perea APRN, MATERIAL CONTROL CLERK Allergies As of Date: 06/15/2020 Noted Allergy [...] 06/15/20 progress on 2020-05 PROGRESS HNO ID: [id number] Normal 06-13-2020 [facility] Author: Kimmie Jennings General Service: General Surgery Medical Author Type: Resident Center Type: Progress Notes (16735) Filed: 06/13/2020 6:55 AM Note Text: Attestation signed by Mala Almendarez at 06/18/2020 1:28 PM I saw and evaluated the patient. Discussed with the reside nt and agree with resident's findings and plan as documented in the resident's note. Elective General Surgery Progress Note SERVICE DATE: 06/13/2020 [facility] General Surgery Service Pager: For questions or concerns Mon-Fri 6a-5p please page [phone]. After 5pm and on Weekends and Holidays, [...] 0659 06/13/20 0700 - 06/14/20 0659 Shift 1544-3098 0762-6298 6180-5178 24 Hour Total 7346-5467 6148-5286 1971-9731 24 Hour Total INTAKE PO 240 200 [...] questions or concerns Mon-Thu 6a-5p please page [phone]. After 5pm and on Weekends and Holidays, please page [phone] if in ICU or [phone] if on RNF. PROGRESS HNO ID: [id number] Normal 06-13-2020 [facility] Author: Mer (Rn) LUCIUS Bejarano General Service: Nursing Med ical Author Type: Registered Nurse Center Type: Progress Notes (85930) Filed: 06/13/2020 12:39 AM Note Text: Patient IV got infiltrated. Patient requested IV only on her rt AC with one try. Refused other spots with better veins. Failed first attempt and patient does not want to have another IV. Surgery resident notified. plan of care on PLAN HNO ID: [id number] Normal 06-13-2020 [facility] Author: Aureliano Dietz DO General CARE Service: General Surgery Medical Author Type: Resident Center Type: Plan of Care ( 68782) Filed: 06/13/2020 4:57 PM Note Text: Attestation [...] [Mass/Vol] 3.9 2.7-4.8 mg/dL Normal 0 [facility] (44317) Comment: Performed By: #### URIN2 ### # [address] [address] mdrd gfr on 2020-05 GFR/1.73 sq M >60 >60mL/min/1.73m2 mL/min/{1.73_m2} Normal [facility] predicted among [facility] non-blacks MDRD (000 00) (S/P/Bld) [Vol rate/Area] Comment: Result Comment: If the patie nt is , multiply the result by 1.210. Performed By: #### GFR #### [facility] [address] [place], [place] [address] magnesium blood on 2020-06-13 Magnesium [Mass/Vol] 2.1 1.7-2.3 mg/dL Normal 0 [facility] (79795) Comment: Performed By: #### URIN2 ### # [facility] [address] [place], [place] [address] hemogram on 2020-05 Erythrocyte distribution 13.4 11.7-14.4 % Normal 06-13 [facility] width (RBC) [Ratio] System (36077) Comment: Performed By: #### URIN2 ### # [facility] [address] [place] [address] Hematocrit (Bld) [Volume 37.9 34.1-44.9 % Normal 06-13 [facility] fraction] System (00 000) Comment: Performed By: #### URIN2 ### # [facility] [address] [place] [address] Hemoglobin (Bld) 12.1 11.2-15.7 g/dL Normal 06-13-2020 [facility] [employer] [facility] [Mass/Vol] System (0 0000) Comment: Performed By: #### URIN2 ### # [facility] [address] [place] [address] MCH (RBC) [Entitic mass] 28.9 25.6-32.2 pg Normal 06-13 [facility] (00 000) Comment: Performed By: #### URIN2 ### # [facility] [address] [place] [address] MCHC (RBC) [Mass/Vol] 31.9 31.6-34.8 % Normal 06-13-20 20 [facility] (71201) Comment: Performed By: #### URIN2 ### # [facility] [address] [place] [address] MCV (RBC) [Entitic vol] 90.7 79.4-94.8 fl Normal 2019 [facility] (00 000) Comment: Performed By: #### URIN2 ### # [facility] [address] [place] [address] Platelet mean volume (Bld) 10.9 9.4-12.3 fl Normal [employer] [facility] [Entitic vol] System (34501) Comment: Performed By: #### URIN2 ### # [facility] [address] [place], [place] [address] Platelets (Bld) [#/Vol] 236 182-369 thou/cmm Normal 2019 [facility] (00 000) Comment: Performed By: #### URIN2 ### # [facility] [address] [place], [place] [address] RBC (Bld) [#/Vol] 4.18 3.93-5.22 mil/cmm Normal 06-13-2020 [facility] (00 000) Comment: Performed By: #### URIN2 ### # [facility] [address] [place] [address] RDW SD 44.2 36.4-46.3 fl Normal 06-13-2020 [facility] (12093) Comment: Performed By: #### URIN2 ### # [facility] [address] [place] [address] WBC (Bld) [#/Vol] 7.45 3.98-10.04 thou/cmm Normal 06-13-2020 [facility] (00 000) Comment: Performed By: #### URIN2 ### # [facility] [address] [place] [address] comprehensive metabolic panel on 2020-06-13 Albumin [Mass/Vol] 4.1 3.9-4.9 g/dL Normal 06-13-2020 [facility] (29978) Comment: Performed By: #### URIN2 ### # [facility] [address] [place] [address] ALP [Catalytic activity/Vol] 98 34-123 U/L Normal 0 06-13-2020 [facility] (00 000) Comment: Performed By: #### URIN2 ### # [facility] [address] [place] [address] ALT [Catalytic activity/Vol] 73 7-38 U/L High 0 06-13-2020 [facility] (46226) Comment: Performed By: #### URIN2 ### # [facility] [address] [place] [address] Anion gap [Moles/Vol] 10 9-18 mmol/L Normal 06-13-[address] [facility] (45612) Comment: Performed By: #### URIN2 ### # [facility] [address] [place], [place] [address] AST [Catalytic activity/Vol] 69 13-35 U/L High 0 06-13-2020 [facility] (87669) Comment: Performed By: #### URIN2 ### # [facility] [address] [place], [place] [address] Bilirubin [Mass/Vol] 0.6 0.2-1.3 mg/dL Normal 0 [facility] (53999) Comment: Performed By: #### URIN2 ### # [facility] [address] [place], [place] [address] Calcium [Mass/Vol] 9.1 8.5-10.2 mg/dL Normal 06-13-2020 [facility] (16168) Comment: Performed By: #### URIN2 ### # [facility] [address] [place], [place] [address] Chloride [Moles/Vol] 101 97-105 mmol/L Normal 0 [facility] (54819) Comment: Performed By: #### URIN2 ### # [facility] [address] [place], [place] [address] CO2 Blood 27 22-30 mmol/L Normal 06-13-2020 [facility] (79715) Comment: Performed By: #### URIN2 ### # [facility] [address] [place], [place] [address] Creatinine [Mass/Vol] 0.87 0.58-0.96 mg/dL Normal 06-13-[address] [facility] (00 000) Comment: Performed By: #### URIN2 ### # [facility] [address] [place], [place] [address] Glucose [Mass/Vol] 94 74-99 mg/dL Normal 06-13-2020 [facility] (39921) Comment: Result Comment: The [place] Diabetes Association (ADA) provides guidance for cutoff [...] Standards of Medical Care in Diabetes 2016; [place] [employer]. Diabetes Care. 2016;39(Suppl 1). Performed By: #### URIN2 ### # [facility] [address] [place], [place] [address] Potassium [Moles/Vol] 3.8 3.7-5.1 mmol/L Normal 06-13-[address] [facility] (00 000) Comment: Performed By: #### URIN2 ### # [address] [address] Protein [Mass/Vol] 7.3 6.3-8.0 g/dL Normal 06-13-2020 [facility] (55358) Comment: Performed By: #### URIN2 ### # [facility] [address] [place], [place] [address] Sodium [Moles/Vol] 138 136-144 mmol/L Normal 06-13-2020 [facility] (89373) Comment: Performed By: #### URIN2 ### # [address] [address] Urea nitrogen [Mass/Vol] 7 7-21 mg/dL Normal 06-13 [facility] (10843) Comment: Performed By: #### URIN2 ### # [address] [address] case managem on CASE MANAGEM HNO ID: [id number] Normal 06-13-20 [facility] Author: Britni (Rn) [facility] Service: Care Management (43026) Author Type: Registered Nurse Type: Care Mgt [...] Name/Phone: Floor RN TRANSPORTATION ARRANGEMENTS: Transportation Arrangements: [employer] (through [employer]: [phone] Trip #: [id number] Needs Prior to Discharge: Ready for Discharge Chart reviewed. Discharge held yesterday due to uncontrolled pain. Spoke with patient. Plan is for discharge today. Awaiting juve hussein orders. Discharge disposition= Home with follow up care. SIGNATURE: Britni Grimaldo RN PATIENT NAME: Sally james DATE: June 13, 2020 TIME: 11:00 AM PAGER/CONTACT #: [phone] progress on 2020-05 PROGRESS HNO ID: [id number] [place] 06-12-2020 [facility] Author: Nancy Abebe General Service: General Surgery Medical Author Type: Resident Center Type: Progress Notes (87802) Filed: 06/12/2020 7:57 AM Note Text: Attestation [...] questions or concerns Mon-Fri 6a-5p please page [phone]. After 5pm and on Weekends and Holidays, please page [phone]. SUBJECTIVE: C/o significant pain that prevents her [...] 0659 06/12/20 0700 - 06/13/20 0659 Shift 2984-2728 2696-4741 4863-8869 24 Hour Total 2077-3321 3894-8295 8121-8812 24 Hour Total INTAKE PO 100 100 PO 100 100 IV 1900 1900 OR Crystalloid intake (mL) 1000 1000 Volume (mL) (lactated ringers infusion) 900 900 Shift Total 8137 949 0778 OUTPUT Urine 008 292 6332 Void (ml) 600 600 OR Urine Output 500 500 Urine Not Saved. 1 x 3 x 4 x Blood 50 50 Estimated Blood loss 50 50 Shift Total 980 797 9967 Weight (kg) 89.6 89.6 89.6 89.6 89.6 [...] Follow up needs: TBD with attending, Dr. Almendarze SIGNATURE: Nancy Abebe DO PATIENT NAME: Sally Szymanski ee DATE: June 12, 2020 TIME: 6:11 AM Pager: see below Elective General Surgery Service Pager: For questions or concerns Mon-Thu 6a-5p please page [phone]. After 5pm and on Weekends and Holidays, please page [phone] if in ICU or [phone] if on RNF. plan of care on PLAN OF CARE HNO ID: [id number] Normal 06-12-20 [facility] Author: Page Burgess ([employer]) [place] ([address]24) Service: Pharmacy Author Type: Pharmacist Type: Plan [...] from Discharge Medication Li st. Page Burgess, [employer] June 12, 2020 10:36 AM Medication List [...] Your Medications These medications were sent to [facility] [address] [place] [address] Hours: Thursday-Thursday, 8am-6:30pm ? oxyCODONE IR 5 mg immediate release tablet phosphorous blood o n 2020-06-12 Phosphate [Mass/Vol] 3.4 2.7-4.8 mg/dL Normal 0 [facility] (93324) Comment: Performed By: #### CBCD1 ### # [place] [id number] magnesium blood on 2020-06-12 Magnesium [Mass/Vol] 1.5 1.7-2.3 mg/dL Low 0 [facility] (07481) Comment: Performed By: #### CBCD1 ### # [place] [id number] hemogram on 2020-05 Erythrocyte distribution 13.2 11.7-14.4 % Normal 06-12 [facility] width (RBC) [Ratio] System (74019) Comment: Performed By: #### CBCD1 ### # [place] [id number] Hematocrit (Bld) [Volume 32.9 34.1-44.9 % Low 06-12 [facility]] System (00 000) Comment: Performed By: #### CBCD1 ### # [facility] [address] [place], [place] [address] Hemoglobin (Bld) [Mass/Vol] 10.5 11.2-15.7 g/dL Low [facility] () Comment: Performed By: #### CBCD1 ### # [facility] [address] [place], [place] [address] MCH (RBC) [Entitic mass] 29.2 25.6-32.2 pg Normal 06-12 [facility] () Comment: Performed By: #### CBCD1 ### # [facility] [address] [place], [place] [address] MCHC (RBC) [Mass/Vol] 31.9 31.6-34.8 % Normal 06-12-[address] [facility] (38482) Comment: Performed By: #### CBCD1 ### # [facility] [address] [place], [place] [address] MCV (RBC) [Entitic vol] 91.4 79.4-94.[address] [facility] (00 000) Comment: Performed By: #### CBCD1 ### # [facility] [address] [place], [place] [address] Platelet mean volume (Bld) 11.5 9.4-12.3 fl Normal [facility] [Entitic vol] System (10245) Comment: Performed By: #### CBCD1 ### # [facility] [address] [place], [place] [address] Platelets (Bld) [#/Vol] 182 182-369 thou/cmm Normal 2019 [facility] (00 000) Comment: Performed By: #### CBCD1 ### # [facility] [address] [place], [place] [address] RBC (Bld) [#/Vol] 3.60 3.93-5.22 mil/cmm Low 06-12-2020 [facility] (97231) Comment: Performed By: #### CBCD1 ### # [facility] [address] [place], [place] [address] RDW SD 44.5 36.4-46.3 fl Normal 06-12-2020 [facility] (98683) Comment: Performed By: #### CBCD1 ### # [facility] [address] [place] [id number] WBC (Bld) [#/Vol] 7.04 3.98-10.04 thou/cmm Normal 06-12-2020 [facility] (00 000) Comment: Performed By: #### CBCD1 ### # [facility] [address] [place] [address] case managem on CASE MANAGEM HNO ID: [id number] Normal 06-12-20 [facility] Author: Britni Naranjo) LUCIUS Grimaldo [facility] Service: Care Management (73792) Author Type: Registered Nurse Type: Care Mgt [...] 12, 2020 TIME: 9:18 AM PAGER/CONTACT #: [phone] basic metabolic panel on 2020-06-12 Anion gap [Moles/Vol] 8 9-18 mmol/L Low 06-12-[address] [facility] (74372) Comment: Performed By: #### CBCD1 ### # [facility] [address] [place], [place] [address] Calcium [Mass/Vol] 8.0 8.5-10.2 mg/dL Low 06-12-2020 [facility] (44954) Comment: Performed By: #### CBCD1 ### # [facility] [address] [place], [place] [address] Chloride [Moles/Vol] 104 97-105 mmol/L Normal 0 [facility] (57110) Comment: Performed By: #### CBCD1 ### # [facility] [address] [place], [place] [address] CO2 Blood 26 22-30 mmol/L Normal 06-12-2020 [facility] (11900) Comment: Performed By: #### CBCD1 ### # [facility] [address] [place], [place] [address] Creatinine [Mass/Vol] 0.87 0.58-0.96 mg/dL Normal 06-12-20 [facility] (00 000) Comment: Performed By: #### CBCD1 ### # [facility] [address] [place], [place] [address] Glucose [Mass/Vol] 83 74-99 mg/dL Normal 06-12-2020 [facility] (82618) Comment: Result Comment: The [place] Diabetes Association (ADA) provides guidance for cutoff [...] Standards of Medical Care in Diabetes 2016; [place] [employer]. Diabetes Care. 2016;39(Suppl 1). Performed By: #### CBCD1 ### # [facility] [address] [place] [address] Potassium [Moles/Vol] 3.4 3.7-5.1 mmol/L Low 06-12-[address] [facility] (89732) Comment: Performed By: #### CBCD1 ### # [facility] [address] [place] [address] Sodium [Moles/Vol] 138 136-144 mmol/L Normal 06-12-2020 [facility] (85724) Comment: Performed By: #### CBCD1 ### # [place] [address] Urea nitrogen [Mass/Vol] 6 7-21 mg/dL Low 06-12 [facility] (03957) Comment: Performed By: #### CBCD1 ### # [place] [address] type and screen on 2020-06-11 ABO group Nom (Bld) O Normal 06-11-2020 [facility] (56906) Comment: Performed By: #### CBCD1 ### # [place] [address] Comment See Below Normal 06-11-2020 [facility] (21004) Comment: Result Comment: Screen &/or Xmatch expires in 3 days at 12 midnight. Redraw patient at that time. Performed By: #### CBCD1 ### # [place] [address] RH Type Positive Normal 06-11-2020 [facility] ([id number]) Comment: Performed By: #### CBCD1 ### # [place] [address] surgical tissue exam on 2020-06-11 Surgical Tissue Exam Test performed at [facility] Normal 06-11-2020 [facility] [address] [place] [address] ([id number]) NAME: SALLY VARGAS REQUESTING: MALA ALMENDAREZ MD [...] are not see n on the specimen. Etiologist sections are submitted in formalin in 4 cassettes. LETICIA/chadd VILLASEÑOR M.D., PATHOLOGIST (Electronic signature on file) Signed out: 06/13/2020 16:48 PRINTED: 06/13/2020 Page 1 of 1 Comment: Performed By: #### URIN2 ### # [place] [address] progress on 2020-05 PROGRESS HNO ID: [id number] Normal 06-11-2020 [employer] Author: [facility] General Service: General Surgery Medical Author Type: Resident Center Type: Progress Notes ([id number]) Filed: 06/11/2020 7:03 AM Note Text: Attestation [...] questions or concerns Mon-Fri 6a-5p please page [phone]. After 5pm and on Weekends and Holidays, please page [phone]. SUBJECTIVE: NAEON. Afebrile. Patient resting in bed [...] 0659 06/11/20 07 - 06/12/20 0659 Shift 5948-3822 7037-6028 1737-4550 24 Hour Total 1003-8731 9452-3056 0379-9222 24 Hour Total INTAKE PO 600 600 [...] questions or concerns Thu-Thu 6a-5p please page [phone]. After 5pm and on Weekends and Holidays, please page [phone] if in ICU or [phone] if on RNF. operative no on OPERATIVE NO HNO ID: [id number] Normal 06-11-20 [facility] Author: Mala Eddy [facility] Service: General Surgery ([id number]) Author Type: Physician Type: Operative Report Filed: 06/11/2020 1:39 PM Note Text: [facility] - Operative Report SALLY VARGAS : 1980 AGE: 39. SEX: F PATIENT TYPE: I HOSP SV: [facility] LOCATION: [facility] ATTENDING PHYSICIAN: MALA ALMENDAREZ CSN NUMBER: [id number] DATE OF SURGERY/PROCEDURE: 06/11/2020 INCISION/PROCEDURE START TIME: 10:51 AM INCISION CLOSE/PROCEDURE END TIME: 11:47 AM PREOPERATIVE DIAGNOSIS: Symptomatic liver cyst. POSTOPERATIVE DIAGNOSIS: Symptomatic liver cyst. SURGEON: Mala Almendarez MD LEAD SYSTEMS DEVELOPER: None. SURGERY/PROCEDURE: Laparoscopic partial right hepatic lobect [...] CLASS: 2, clean, contaminated. Mala Almendarez MD NSA:[id number] /[id number] nursing prog on NURSING PROG HNO ID: [id number] Normal 06-11-20 20 [employer] [facility] Author: Garo Jackson [facility] Service: ? ([id number]) Author Type: Registered Nurse Type: Nursing Progress Note Filed: 06/11/2020 6:25 PM Note Text: Nursing Progress Note Patient Name: Sally Vargas Patient Location: [place] [id number]- Patient refusing IV fluids, states we can restart them when she goes to bed. Informed surgery team. This note was completed by: Garo Jackson RN hemogram on 2020-05 Erythrocyte distribution 13.0 11.7-14.4 % Normal 06-11 [facility] ([facility] [Ratio] System (62965) Comment: Performed By: #### CBCD1 ### # [facility] [address] [place], [place] [address] Hematocrit (Bld) [Volume 35.0 34.1-44.9 % Normal 06-11 [employer] fraction] System (00 000) Comment: Performed By: #### CBCD1 ### # [facility] [address] [place], [place] [address] Hemoglobin (Bld) 11.4 11.2-15.7 g/dL Normal 06-11-2020 [facility] [Mass/Vol] System (0 0000) Comment: Performed By: #### CBCD1 ### # [facility] [address] [place], [place] [address] MCH (RBC) [Entitic mass] 29.2 25.6-32.2 pg Normal 06-11 [employer] [facility] (00 000) Comment: Performed By: #### CBCD1 ### # [facility] [address] [place], [place] [address] MCHC (RBC) [Mass/Vol] 32.6 31.6-34.8 % Normal 06-11-20 20 [employer] [facility] (42027) Comment: Performed By: #### CBCD1 ### # [facility] [address] [place], [place] [address] MCV (RBC) [Entitic vol] 89.5 79.4-94.8 fl Normal 2019 [employer] [facility] (00 000) Comment: Performed By: #### CBCD1 ### # [facility] [address] [place], [place] [address] Platelet mean volume (Bld) 11.1 9.4-12.3 fl Normal [facility] [Entitic vol] System (81505) Comment: Performed By: #### CBCD1 ### # [facility] [address] [place], [place] [address] Platelets (Bld) [#/Vol] 229 182-369 thou/cmm Normal 2019 [facility] (00 000) Comment: Performed By: #### CBCD1 ### # [facility] [address] [place], [place] [address] RBC (Bld) [#/Vol] 3.91 3.93-5.22 mil/cmm Low 06-11-2020 [facility] (61734) Comment: Performed By: #### CBCD1 ### # [facility] [address] [place] [id number] RDW SD 42.5 36.4-46.3 fl Normal 06-11-2020 [facility] (13710) Comment: Performed By: #### CBCD1 ### # [facility] [address] [place], [place] [address] WBC (Bld) [#/Vol] 6.54 3.98-10.04 thou/cmm Normal 06-11-2020 [facility] (00 000) Comment: Performed By: #### CBCD1 ### # [place] [id number] case managem on 202 CASE MANAGEM HNO ID: [id number] Normal 06-11-20 20 [facility] Author: Britni (Rn) LUCIUS [facility] Service: Care Management ([id number]) Author Type: Registered Nurse Type: Care Mgt [...] 11, 2020 TIME: 9:10 AM PAGER/CONTACT #: [phone] anes preop on 06-11 ANES PREOP HNO ID: [id number] Normal 06-11-2020 Milka Dumont Author: [facility] Service: Anesthesiology ([id number]) Author Type: Physician Type: Anesthesia PreOp Filed: [...] Benign liver cyst 05/24/2010 CT scan at [facility] 11/2009 and 04/2010 showe 4 mm increase in size . No pain. No elevated LFTs on 03/11/2010. - Calculus of kidney 05/17/[address] Nicolas: Hospitalized age 20, and again later -- no procedures so far ([facility], 1995 [facility]) - Cancer (HCC) - Diverticulosis - [...] removed - TOTAL ABDOM HYSTERECTOMY 08/31/06 Hysterectomy, [facility] FAMILY HISTORY Problem Relation Age of [...] Approx. 3 cigarettes daily-1 pack every w [facility] Substance Use Topics - Alcohol use: Yes [...] injection (DONTRELL ENOX) 40 mg SUBCUTANEOUS DAILY Chrsi (Res) Demshar - [MAR Hold due to [...] INTRAVENOUS q 3 H PRN Nigel (Res) Caroline 1 mg at 06/11/20 0536 - [MAR Hold due to Transfer] NaCl 0.9% iv infusion 125 mL/hr INTRAVENOUS CONTINUOUS Nigel (Res) Caroline 125 mL/hr at 06/10/202247 1 25 mL/hr [...] June 11, 2020 TIME: 9:49 AM CSN: [id number] anes post on 06-11 ANES POST HNO ID: [id number] Normal 06-11-2020 [facility] Author: [facility] ([id number]) Service: Anesthesiology Author Type: Physician Type: Anesthesia [...] #: progress on 2020-05 PROGRESS HNO ID: [id number] Normal 06-10-2020 [facility] Author: Mer PickardRnJoao Bejarano RN [place] ([id number]) Service: Nursing Author Type: Registered Nurse Type: [...] resident Kimmie was notified. PROGRESS HNO ID: [id number] Normal 06-10-2020 [facility] Author: Kimmie Beck [facility] ([id number]) Service: General Surgery Author Type: Resident Type: [...] questions or concerns Mon-Thu 6a-5p please page [phone]. After 5pm and on Weekends and Holidays, please page [phone]. SUBJECTIVE: NAEON. Afebrile. Patient resting in bed [...] 0659 06/10/20 0700 - 06/11/20 0659 Shift 6167-8435 8049-4933 3851-5070 24 Hour Total 6497-9256 9179-0243 9054-6434 24 Hour Total INTAKE PO 652 764 9661 PO 480 500 9027 Shift Total 180 293 7920 OUTPUT Urine Urine Not Saved. 2 x [...] up needs: OR on Thursday SIGNATURE: Kimmie Jenninsg DO PATIENT NAME: Sally Vargas DATE: June 10, 2020 TIME: 7:29 AM Pager: see below Elective General Surgery Service Pager: For questions or concerns Thu-Thu 6a-5p please page [phone]. After 5pm and on Weekends and Holidays, please page [phone] if in ICU or [phone] if on RNF. PROGRESS HNO ID: [id number] Normal 06-10-2020 [facility] Author: Mer (Rn) LUCIUS Bejarano [place] ([id number]) Service: Nursing Author Type: Registered Nurse Type: [...] [Mass/Vol] 4.2 2.7-4.8 mg/dL Normal 0 [facility] (37537) Comment: Performed By: #### CBCD1 ### # [address] [address] magnesium blood on 2020-06-10 Magnesium [Mass/Vol] 1.8 1.7-2.3 mg/dL Normal 0 [facility] (36009) Comment: Performed By: #### CBCD1 ### # [address] [address] coronavirus 2019 on 2020-06-10 COVID 19 Result QUALITY LEAD Negative CORNEG Normal 06-10-2020 [facility] (84233) Comment: Result Comment: Negative for COVID19 (SARS CoV2) by PCR. This test was developed and its performance characteristics determined by [facility]'s Johnnie JAzul [facility] Pathology and Laboratory Medicine [place]. This test has bee n authorized by FDA under an Emergency Use Authorization (EUA). This test has been validated in accordance with the FDA's Guidance Document Policy for Diagnostics Test ing in Laboratories Certified to Perform High Complexity Testing under CLI A prior to Emergency use Authorization for Coronavirus Disease 2019 dur ing the [facility] Emergency issued on November 12, 2019. Performing Laboratory: [facility] [address] [place] [address] Performed By: #### CBCD1 ### # [facility] [address] [place], [place] [address] basic metabolic panel on 2020-06-10 Anion gap [Moles/Vol] 10 9-18 mmol/L Normal 06-10-20 [facility] (90737) Comment: Performed By: #### CBCD1 ### # [address] [address] Calcium [Mass/Vol] 9.2 8.5-10.2 mg/dL Normal 06-10-2020 [facility] (23439) Comment: Performed By: #### CBCD1 ### # [facility] [address] [place], [place] [address] Chloride [Moles/Vol] 102 97-105 mmol/L Normal 0 [facility] (46842) Comment: Performed By: #### CBCD1 ### # [facility] [address] [place], [place] [address] CO2 Blood 27 22-30 mmol/L Normal 06-10-2020 [facility] (84982) Comment: Performed By: #### CBCD1 ### # [facility] [address] [place], [place] [address] Creatinine [Mass/Vol] 0.90 0.58-0.96 mg/dL Normal 06-10-20 20 [facility] (00 000) Comment: Performed By: #### CBCD1 ### # [facility] [address] [place], [place] [address] Glucose [Mass/Vol] 105 74-99 mg/dL High 06-10-2020 [facility] (68721) Comment: Result Comment: The [place] Diabetes Association (ADA) provides guidance for cutoff [...] Standards of Medical Care in Diabetes 2016; [place] Diabetes Association. Diabetes Care. 2016;39(Suppl 1). Performed By: #### CBCD1 ### # [place] [address] Potassium [Moles/Vol] 3.7 3.7-5.1 mmol/L Normal 06-10-20 [facility] (00 000) Comment: Performed By: #### CBCD1 ### # [place] [address] Sodium [Moles/Vol] 139 136-144 mmol/L Normal 06-10-2020 [facility] (45156) Comment: Performed By: #### CBCD1 ### # [place] [address] Urea nitrogen [Mass/Vol] 8 7-21 mg/dL Normal 06-10 [facility] (79553) Comment: Performed By: #### CBCD1 ### # [place] [address] allied health on 03-06-27 ALLIED HNO ID: [id number] Normal 06-10-2020 [facility] Author: Chaplain Suarez (Chaplain) General Service: Spiritual Care Medical Author Type: [facility] Type: Allied Health ([id number]) Filed: 06/10/2020 7:39 PM Note Text: SPIRITUALCARE Spiritual Care Visit- Brief Note Name: Sally Vargas Date: June 10, 2020 Notes: Pre-surgery Patient Nothing needed tonight. [employer] Signature: Chaplain Erick To contact the [facility] Department: Please call [phone] or Page the On-Call at [place]w er [phone] Thank you for the opportunity to be of service. This is an electronically created document. IF PRINTED, PLEASE DO NOT REMOVE FROM THE CHART OR MODIFY CA INTED COPY. progress on 2020-05 PROGRESS HNO ID: [id number] Normal 06-09-2020 [facility] Author: Kimmie Jennings General Service: General Surgery Medical Author Type: Resident Center Type: Progress Notes ([id number]) Filed: 06/09/2020 7:14 AM Note Text: Attestation [...] questions or concerns Thu-Thu 6a-5p please page [phone]. After 5pm and on Weekends and Holidays, please page [phone]. SUBJECTIVE: NAEON. Afebrile. Patient resting in bed [...] 0659 06/09/20 07 - 06/10/20 0659 Shift 7916-1200 8331-6902 6341-7405 24 Hour Total 5603-6360 5003-2073 4266-1948 24 Hour Total INTAKE Shift Total OUTPUT [...] (TYLENOL) 975 mg ORAL q 6 H CA N - oxyCODONE IR 5-10 mg tab(s) [...] Erythrocyte distribution 13.2 11.7-14.4 % Normal 06-09 [facility] width (RBC) [Ratio] System (14107) Comment: Performed By: #### GFR #### [address] [address] Hematocrit (Bld) [Volume 33.7 34.1-44.9 % Low 06-09 [facility]] System (00 000) Comment: Performed By: #### GFR #### [address] [address] Hemoglobin (Bld) [Mass/Vol] 10.6 11.2-15.7 g/dL Low [facility] (00 000) Comment: Performed By: #### GFR #### [address] [address] MCH (RBC) [Entitic mass] 28.8 25.6-32.2 pg Normal 06-09 [facility] (00 000) Comment: Performed By: #### GFR #### [address] [address] MCHC (RBC) [Mass/Vol] 31.5 31.6-34.8 % Low 06-09-[address] [facility] (90875) Comment: Performed By: #### GFR #### [address] [address] MCV (RBC) [Entitic vol] 91.6 79.4-94.[address] [facility] (00 000) Comment: Performed By: #### GFR #### [address] [address] Platelet mean volume (Bld) 11.6 9.4-12.3 fl Normal [facility] [Entitic vol] System (89975) Comment: Performed By: #### GFR #### [facility] [address] [place], [place] [address] Platelets (Bld) [#/Vol] 199 182-369 thou/cmm Normal 2019 [facility] (00 000) Comment: Performed By: #### GFR #### [facility] 1 [place] [id number] RBC (Bld) [#/Vol] 3.68 3.93-5.22 mil/cmm Low 06-09-2020 [facility] (48520) Comment: Performed By: #### GFR #### [place] [address] RDW SD 43.9 36.4-46.3 fl Normal 06-09-2020 [facility] (09163) Comment: Performed By: #### GFR #### [place] [id number] WBC (Bld) [#/Vol] 6.47 3.98-10.04 thou/cmm Normal 06-09-2020 [facility] (00 000) Comment: Performed By: #### GFR #### [address] [address] basic metabolic panel on 2020-06-09 Anion gap [Moles/Vol] 11 9-18 mmol/L Normal 06-09-[address] [facility] (48767) Comment: Performed By: #### GFR #### [address] [address] Calcium [Mass/Vol] 8.8 8.5-10.2 mg/dL Normal 06-09-2020 [facility] (62223) Comment: Performed By: #### GFR #### [address] [address] Chloride [Moles/Vol] 106 97-105 mmol/L High 0 [facility] (17767) Comment: Performed By: #### GFR #### [address] [employer], [place] [address] CO2 Blood 24 22-30 mmol/L Normal 06-09-2020 [facility] (33360) Comment: Performed By: #### GFR #### [facility] [address] [place], [place] [address] Creatinine [Mass/Vol] 0.82 0.58-0.96 mg/dL Normal 06-09-20 [facility] (00 000) Comment: Performed By: #### GFR #### [facility] [address] [place], [place] [address] Glucose [Mass/Vol] 84 74-99 mg/dL Normal 06-09-2020 [facility] (65525) Comment: Result Comment: The [place] Diabetes Association (ADA) provides guidance for cutoff [...] Standards of Medical Care in Diabetes 2016; [place] Diabetes Association. Diabetes Care. 2016;39(Suppl 1). Performed By: #### GFR #### [facility] [address] [place], [place] [address] Potassium [Moles/Vol] 3.8 3.7-5.1 mmol/L Normal 06-09-[address] [facility] (00 000) Comment: Performed By: #### GFR #### [facility] [address] [place], [place] [address] Sodium [Moles/Vol] 141 136-144 mmol/L Normal 06-09-2020 [facility] (49394) Comment: Performed By: #### GFR #### [facility] [address] [place], [place] [address] Urea nitrogen [Mass/Vol] 9 7-21 mg/dL Normal 06-09 [facility] (83914) Comment: Performed By: #### GFR #### [facility] [address] [place], [place] [address] protime on INR Coag (PPP) [Relative 1.07 0.90-1.30 {INR} Normal 06-08 [facility] time] System (00 000) Comment: Result Comment: Vitamin K An tagonist (VKA) Therapeutic Range: INR 2 to 3 (Target INR of 2.5) Note: For patients treated w ith VKA drugs, such as warfarin, the [place] [employer] Chest Ph ysicians 2012 Guideline recommends a therapeutic INR range of 2 to 3 (target INR of 2.5). This recommendation includes high -risk patients with antiphospholipid syndrome with previous arter ial or venous thromboembolism, current-generation mechanica l or bioprosthetic aortic heart valve replacement. Note: Patients with insulation mechanic al aortic valve replacement and additional risk factors for thromboembolic events (atrial fibrillation, previous throm boembolism, LV dysfunction, hypercoagulable conditions) or an older generation mechanical AVR (i.e., ball in-Cage) or any mechanical MVR should have a INR therapeutic range of 2 .5 to 3.5 target INR of 3). Francktt GH, et al. Chest 2012 ; 141:7S-47S Calderon RA et al. [facility] 20 17; 70: 252-289 Performed By: #### GFR #### [facility] [address] [place], [place] [address] PT Coag (PPP) [Time] 11.1 9.7-13.0 sec Normal 0 [employer] [facility] (02658) Comment: Performed By: #### GFR #### [facility] [address] [place], [place] [address] phosphorous blood o n 2020-06-08 Phosphate [Mass/Vol] 3.3 2.7-4.8 mg/dL Normal 0 [employer] [facility] (49563) Comment: Performed By: #### GFR #### [facility] [address] [place], [place] [address] nursing prog on NURSING PROG HNO ID: [id number] Normal 06-08-20 20 [facility] Author: Garo (Rn) LUCIUS Jackson [facility] Service: ? ([id number]) Author Type: Registered Nurse Type: Nursing Progress Note Filed: 06/08/2020 10:56 AM Note Text: Nursing Progress Note Patient Name: Sally Vargas Patient Location: [place] [id number] Spoke with Doctor Dick regarding IV contrast allergy and th e need for steroid prep. This note was completed by: Garo Jackson RN mri panc/james wo/w ivcon on 2020-06-08 MRI PANC/JAMES WO/W Final Report Normal 0 [employer] [facility] IVCON DATE OF EXAM: Jun 08 2020 6:[address] [place] [address]30 - MRI PANC/JAMES WO/W IVCON / ([id number]) PROCEDURE REASON: Liver lesion, >1cm, US indeterminate, [...] x 8.0 cm . 2. Normal MRCP. Trim Technician: HERMINIO Transcribe Date/Time: Jun 08 2020 7:48P Dictated by : ALICE ALCARAZ MD This examination was interpreted and the report reviewed and electronically signed by: ALICE ALCARAZ MD on Jun 08 2020 8:42PM EST mri 3d post processing on 2020-06-08 MRI 3D POST Final Report Normal 06-08-2020 [facility] PROCESSING DATE OF EXAM: Jun 08 2020 6:31[facility] 0280 - MRI 3D POST PROCESSING / ([id number]) PROCEDURE REASON: Abd pain, chronic, intermittent Physician [...] x 8.0 cm . 2. Normal MRCP. Trim Technician: HERMINIO Transcribe Date/Time: Jun 08 2020 7:48P Dictated by : ALICE ALCARAZ MD This examination was interpreted and the report reviewed and electronically signed by: ALICE ALCARAZ MD on Jun 08 2020 8:42PM EST magnesium blood on 2020-06-08 Magnesium [Mass/Vol] 2.0 1.7-2.3 mg/dL Normal 0 [facility] (46326) Comment: Performed By: #### LIP #### [facility] [address] [place], [place] [address] lipase blood on Lipase Blood 31 16-61 U/L Normal 06-08-2020 [facility] (95916) Comment: Performed By: #### GFR #### [facility] [address] [place], [place] [address] history physical on 2020-06-08 HISTORY HNO ID: [id number] Normal 06-08-2020 [employer] PHYSICAL Author: Chris Kurtz General Service: General Surgery Medical Author Type: Resident Center Type: [facility] ([id number]) Filed: 06/08/2020 7:24 AM Note Text: Attestation signed by Mala Almendarez at 06/08/2020 7:09 PM Attending Note I personally saw and examined the patient. I reviewed the resident's note. I agree with the resident's assessment and plan with the [facility] revisions and/or additions: Admit for symptomatic hepatic cyst. Plan for cyst fenestrati on on Thursday. Signature: Mala Almendarez MD Date: 06/08/2020 Time: 7:09 PM HISTORY AND PHYSICAL EXAMINATION SERVICE DATE: 06/08/2020 SERVICE TIME: 7:12 AM Subjective CHIEF COMPLAINT: Abdominal Pain HPI: 39 year old female presents as a direct admission to [facility] with abdominal pain and a [...] Benign liver cyst 05/24/2010 CT scan at [facility] 11/2009 and 04/2010 showe 4 mm increase in size . No pain. No elevated LFTs on 03/11/2010. - Calculus of kidney 05/17/[address] Nicolas: Hospitalized age 20, and again later -- no procedures so far ([facility], 1995 [facility]) - Cancer (HCC) - Diverticulosis - [...] Approx. 3 cigarettes daily-1 pack every w [facility] Substance Use Topics - Alcohol use: Yes [...] hours. Invalid input(s): [facility] Diagnostic tests reviewed for today's visit: [...] in ICU or 2170 if on RNF. hepatic function panel on 2020-06-08 Albumin [Mass/Vol] 4.7 3.9-4.9 g/dL Normal 06-08-2020 [facility] (64944) Comment: Performed By: #### GFR #### [place] [address] ALP [Catalytic activity/Vol] 94 34-123 U/L Normal 0 06-08-2020 [facility] () Comment: Performed By: #### GFR #### [facility] [address] [place], [place] [address] ALT [Catalytic activity/Vol] 17 7-38 U/L Normal 0 06-08-2020 [facility] () Comment: Performed By: #### GFR #### [facility] [address] [place], [place] [address] AST [Catalytic activity/Vol] see below 13-35 Normal 0 06-08-2020 [facility] () Comment: Result Comment: Unable to as say. Specimen Hemolyzed Performed By: #### GFR #### [facility] [address] [place], [place] [address] Bilirubin [Mass/Vol] see below 0.0-0.[address] [facility] () Comment: Result Comment: Unable to as say. Specimen Hemolyzed Performed By: #### GFR #### [address] [address] Bilirubin [Mass/Vol] 0.3 0.2-1.3 mg/dL Normal 0 [facility] (71429) Comment: Performed By: #### GFR #### [address] [address] Protein [Mass/Vol] 7.8 6.3-8.0 g/dL Normal 06-08-2020 [facility] (64368) Comment: Performed By: #### GFR #### [facility] [address] [place], [place] [address] hemogram on 2020-05 Erythrocyte distribution 13.3 11.7-14.4 % Normal 06-08 [facility] width (RBC) [Ratio] System (73343) Comment: Performed By: #### LIP #### [address] [address] Hematocrit (Bld) [Volume 38.1 34.1-44.9 % Normal 06-08 [employer] [facility] fraction] System (00 000) Comment: Performed By: #### LIP #### [facility] [address] [place] [id number] Hemoglobin (Bld) 11.8 11.2-15.7 g/dL Normal 06-08-2020 [facility] [Mass/Vol] System (0 0000) Comment: Performed By: #### LIP #### [facility] [address] [place] [id number] MCH (RBC) [Entitic mass] 28.4 25.6-32.2 pg Normal 06-08 [facility] (00 000) Comment: Performed By: #### LIP #### [facility] [address] [place] [address] MCHC (RBC) [Mass/Vol] 31.0 31.6-34.8 % Low 06-08-20 20 [facility] (72235) Comment: Performed By: #### LIP #### [facility] [address] [place] [id number] MCV (RBC) [Entitic vol] 91.8 79.4-94.[address] [facility] (00 000) Comment: Performed By: #### LIP #### [facility] [address] [place] [address] Platelet mean volume (Bld) 11.6 9.4-12.3 fl Normal [facility] [Entitic vol] System (21422) Comment: Performed By: #### LIP #### [facility] [address] [place], [place] [address] Platelets (Bld) [#/Vol] 230 182-369 thou/cmm Normal 2019 [facility] (00 000) Comment: Performed By: #### LIP #### [facility] [address] [place] [id number] RBC (Bld) [#/Vol] 4.15 3.93-5.22 mil/cmm Normal 06-08-2020 [facility] (00 000) Comment: Performed By: #### LIP #### [facility] [address] [place] [id number] RDW SD 44.9 36.4-46.3 fl Normal 06-08-2020 [facility] ([address]10) Comment: Performed By: #### LIP #### [facility] [address] [place], [place] [address] WBC (Bld) [#/Vol] 7.30 3.98-10.04 thou/cmm Normal 06-08-2020 [facility] (00 000) Comment: Performed By: #### LIP #### [facility] [address] [place], [place] [address] case mgt init asses on 2020-06-08 CASE MGT INIT HNO ID: [id number] Normal 020 [facility] Author: Britni (Rn) [facility] Service: Care Management ([id number]) Author Type: Registered Nurse Type: Care Mgt Initial Assessment Filed: 06/08/2020 11:00 AM Note Text: CARE MANAGEMENT: ASSESSMENT AND DISCHARGE PLAN SERVICE DATE: June 08, 2020 SERVICE TIME: 10:50 AM PRIMARY CARE PHYSICIAN: Marcelino Mejia MD (Confirmed with patient) ADMISSION STATUS: Inpatient Needs Prior to Discharge: Pharmacy Bedside Delivery MEDICAL: [facility] MEDICAID Patient/Etiologist Stated Goals: To return home to life as it was Health Insurance: Pending Sale To [facility] Issues Impacting Discharge Plan: Uncontrolled Uncontrolled: [...] completed Advance Directive: Current Advance Directive: None Extension Service Specialist In Charge Attempted to Assist with AD Completion: Yes [...] Patient Currently Receive Any Community Services or [facility] e Care?: None Equipment Prior to Admission: None SOCIAL: Living Arrangements: Home Lives With: Other: See Comment(Significant other) Financial Resources: UnemployedPrimary Contact: Extended Dipmle rgency Contact Information Primary Emergency Contact: BEBETO [...] Completely I feel financially burdened by my nga-ve-rcchem expenses for my prescription medication:: 0 - Disagree Completely Risk Score: 0 Patient is categorized as: Low risk < 2 Are you interested in bedside delivery of your medications? Yes Is Patient Psychosocially Complex?: No ASSESSMENT AND PLAN: Medical Needs: Medical Needs: Two or more chronic diseases Psychosocial Needs: Psychosocial Needs: None FREEDOM OF CHOICE EXPLAINED: [place] of Choice Given: No Reason Not Given: [...] 08, 2020 TIME: 10:50 AM PAGER/CONTACT #: [phone] basic metabolic panel on 2020-06-08 Anion gap [Moles/Vol] 11 9-18 mmol/L Normal 06-08-20 [facility] (26438) Comment: Performed By: #### LIP #### [facility] [address] [place], [place] [address] Calcium [Mass/Vol] 9.6 8.5-10.2 mg/dL Normal 06-08-2020 [facility] (53689) Comment: Performed By: #### LIP #### [facility] [address] [place], [place] [address] Chloride [Moles/Vol] 104 97-105 mmol/L Normal 0 [facility] (85261) Comment: Performed By: #### LIP #### [facility] [address] [place], [place] [address] CO2 Blood 25 22-30 mmol/L Normal 06-08-2020 [facility] (84946) Comment: Performed By: #### LIP #### [facility] [address] [place], [place] [address] Creatinine [Mass/Vol] 0.80 0.58-0.96 mg/dL Normal 06-08-20 [facility] (00 000) Comment: Performed By: #### LIP #### [facility] [address] [place], [place] [address] Glucose [Mass/Vol] 91 74-99 mg/dL Normal 06-08-2020 [facility] (22176) Comment: Result Comment: The [place] Diabetes Association (ADA) provides guidance for cutoff [...] Standards of Medical Care in Diabetes 2016; [place] Diabetes Association. Diabetes Care. 2016;39(Suppl 1). Performed By: #### LIP #### [facility] [address] [place], [place] [address] Potassium [Moles/Vol] 3.7 3.7-5.1 mmol/L Normal 06-08-20 [facility] (00 000) Comment: Performed By: #### LIP #### [facility] [address] [place], [place] [address] Sodium [Moles/Vol] 140 136-144 mmol/L Normal 06-08-2020 [facility] (40905) Comment: Performed By: #### LIP #### [facility] [address] [place], [place] [address] Urea nitrogen [Mass/Vol] 13 7-21 mg/dL Normal 06-08 [facility] (06176) Comment: Performed By: #### LIP #### [facility] [address] [place], [place] [address] allied health on 03-06-25 [facility] HNO ID: [id number] Normal 020 [facility] Author: Deepa Mcintosh) [facility] ([id number]) Service: Radiology Author Type: Housekeeping Lead Type: Allied Health Filed: 06/08/2020 7:02 PM Note Text: Spoke to Garo (RN), in regards to her itching and scratching after the MRI was completed. Garo informed me that she had been itching an d scratching all day. Garo came down and gave the patient medication for the itching and took her back to the room. Kelley Noriega ALLIED HEALTH HNO ID: [id number] Normal 020 [facility] Author: Deepa Mcintosh) [facility] ([id number]) Service: Radiology Author Type: Housekeeping Lead Type: Allied Health Filed: 06/08/2020 5:56 PM [...] PERIPHERAL IV DATA: Inpatient - refer to [facility] documentation RADIOLOGY DEPARTMENT: MR; Exam(s) Completed: Body: Pancreas/ Biliary SIGNATURE: RT Masoud PATIENT NAME: Sally Vargas DATE: June 08, 2020 TIME: 5:53 PM ALL[facility] HEALTH HNO ID: [id number] Normal 020 [facility] Author: Deepa (Rt) Vianey [facility] [place] ([id number]) Service: Radiology Author Type: Housekeeping Lead Type: Allied Health Filed: 06/08/2020 4:21 PM Note Text: Called RN to get MRI order changed to w/wo per radiology pro tocol. Patient is not listed as allergy to gadolinium and creat is WNL. Mira l schedule STAT MRI as soon as order is changed activated ptt on 03-06-25 aPTT Coag (Bld) [Time] 30.5 23.0-32.[address] [facility] (00 000) Comment: Result Comment: Unfractionat [...] AP TT reagent in use throughout the [facility]. Performed By: #### GFR #### [place] [address] hosp on 2020-06-07 HOSP Patient:Sally Vargas Normal 05-16 [employer] MRN: General Height:5' 1(1.549 m) Medical Weight:197 lb 9.6 oz (89.631 kg) Center Outpatient Medications as of 06/11/20: ([id number]) prazosin (MINIPRESS) 1 mg cap hyoscyamine (LEVSIN) [...] the resident's assessment and [facility] revisions and/or additions: Admit [...] Benign liver cyst 05/24/2010 CT scan at [facility] 11/2009 and 04/2010 showe 4 mm increase in size . No pain. No elevated LFTs on 03/11/2010. - Calculus of kidney 05/17/[address] Nicolas: Hospitalized age 20, a nd again later -- no procedures so far ([facility], [facility], 1995 [facility]) - Cancer (HCC) - Diverticulosis - [...] Approx. 3 cigarettes daily-1 pack every w [facility] Substance Use Topics - Alcohol use: Yes [...] hours. Invalid input(s): [facility] Diagnostic tests reviewed for today's visit: [...] questions or concerns Thu-Thu 6a-5p please page [phone]. After 5pm and on Weekends an d Holidays, please page [phone] if in ICU or [phone] if on RNF. Britni Grimaldo, RN, RN 06/08/2020 11:00 AM Signed CARE MANAGEMENT: ASSESSMENT AND DISCHARGE PLAN SERVICE DATE: June 08, 2020 SERVICE TIME: 10:50 AM PRIMARY CARE PHYSICIAN: Marcelino Mejia MD (Confirmed with patient) ADMISSION STATUS: Inpatient Needs Prior to Discharge: Pharmacy Bedside Delivery MEDICAL: [facility] MEDICAID Patient/Etiologist Stated Goals: To return home to life as it was Health Insurance: [employer] Issues Impacting Discharge Plan: Uncontrolled Uncontrolled: History [...] completed Advance Directive: Current Advance Directive: None Extension Service Specialist In Charge Attempted to Assist with AD Completion: Yes [...] Patient Currently Receive Any Community Services or [facility] Care?: None Equipment Prior to Admission: [...] Completely I feel financially burdened by my pff-sd-ikhzsc expens es for my prescription medication:: 0 - Disagree Completely Risk Score: 0 Patient is categorized as: Low risk < 2 Are you interested in bedside delivery of your medications? Yes Is Patient Psychosocially Complex?: No ASSESSMENT AND PLAN: Medical Needs: Medical Needs: Two or more chronic diseases Psychosocial Needs: Psychosocial Needs: None FREEDOM OF CHOICE EXPLAINED: [place] of Choice Given: No Reason Not Given: [...] 08, 2020 TIME: 10:50 AM PAGER/CONTACT #: [phone] Jasmine Chavez, RN 06/08/2020 10:56 AM Signed Nursing Progress Note Patient Name: Sally Vargas Patient Location: [place] [id number]- Spoke with Doctor Dick regarding IV con trast allergy and the need for steroid prep. This note was completed by: LUCIUS Chavez RT, xiao qu wu you 06/08/2020 4:21 PM Signed Called RN to [...] questions or concerns Mon-Fri 6a-5p please page [phone]. After 5pm and on Weekends and Holidays, please page [phone]. SUBJECTIVE: NAEON. Afebrile. Patient resting in bed [...] - 06/09/20 0606/09/20699 - 06/10/20 0659 Shift 1694-3427 0603-4391 23 00-0659 24 Hour Total 9612-8840 3891-1192 6710-2840 24 Hour Total INTAKE Shift Total OUTPUT [...] (TYLENOL) 975 mg ORAL q 6 H CA N - oxyCODONE IR 5-10 mg tab(s) [...] questions or concerns Thu-Thu 6a-5p please page [phone]. After 5pm and on Weekends an d Holidays, please page [phone] if in ICU or [phone] if on RNF. Mer Bejarano, RN, RN [...] questions or concerns Mon-Fri 6a-5p please page [phone]. After 5pm and on Weekends and Holidays, please page [phone]. SUBJECTIVE: NAEON. Afebrile. Patient resting in bed [...] 0659 06/10/20 0700 - 06/11/20 0659 Shift 0064-2818 7779-0519 23 00-0659 24 Hour Total 8768-1656 8019-5922 9269-4601 24 Hour Total INTAKE PO 027 961 4175 PO 961 123 1868 Shift Total 796 536 9317 OUTPUT Urine Urine Not Saved. 2 x [...] questions or concerns Thu-Thu 6a-5p please page [phone]. After 5pm and on Weekends an d [...] 2020 Notes: Pre-surgery Patient Nothing needed tonight. Iron Molder Helper Signature: Chaplain Erick To contact the Spiritual Care Department: Please call [phone] or Page the On-Call Iron Molder Helper at [facility] [place] [address] Thank you for the opportunity to be of service. This is an electronically created document. IF PRINTED, PLEASE DO NOT REMOVE FROM THE CHART OR MODIFY CA INTED COPY. Kimmie Jennings DO 06/11/2020 7:03 AM Cosign Needed Elective General Surgery Progress Note SERVICE DATE: 06/11/2020 [facility] Service Pager: For questions or concerns Mon-Fri 6a-5p please page [phone]. After 5pm and on Weekends and Holidays, please page [phone]. SUBJECTIVE: NAEON. Afebrile. Patient resting in bed [...] 0659 06/11/20 07 - 06/12/20 0659 Shift 0028-2979 5517-8636 23 00-0659 24 Hour Total 6701-9419 5809-8112 0283-0209 24 Hour Total INTAKE PO 600 600 [...] questions or concerns Thu-Thu 6a-5p please page [phone]. After 5pm and on Weekends an d [...] 11, 2020 TIME: 9:10 AM PAGER/CONTACT #: [phone] Ruben Thompson MD 06/11/2020 9:51 AM Signed [...] Benign liver cyst 05/24/2010 CT scan at [facility] 11/2009 and 04/2010 showe 4 mm increase in size . No pain. No elevated LFTs on 03/11/2010. - Calculus of kidney 05/17/[address] Nicolas: Hospitalized age 20, a nd again later -- no procedures so far ([facility], [facility], 1995 [facility]) - Cancer (HCC) - Diverticulosis - [...] Approx. 3 cigarettes daily-1 pack every w [facility] Substance Use Topics - Alcohol use: Yes [...] INTRAVENOUS q 3 H PRN Nigel (Res) Caroline 1 mg at 0536 - [MAR Hold [...] June 11, 2020 TIME: 9:49 AM CSN: [id number] Progress Notes ([facility]): Johnny Winn MD 06/06/2020 10:30 AM Signed [...] on 2020-06-06 CNPN Telephone (GSTNOR) Normal 06-06-2020 [place] [facility] SALLY VARGAS ([id number]) 1980 F [place] Date Time Provider Department ([id number]) 06/06/20 JOHNNY WINN During your visit today, [...] c ysts. All questions answered. MD [facility] 06/06/2020 10:53 AM Signed Patient is [...] Order(s):CONSULT TO ALLERGY/IMMUNOLOGY [ 9001] Order #: [id number]: 1 FUTURE Prescriptions as of 06/06/2020 Sig: [...] 06/06/20 progress on 2020-05 PROGRESS HNO ID: [id number] Normal 06-05-2020 [facility] Author: Mala sosa ([id number]) Service: ? Author Type: Physician Type: Progress [...] MD progress on 2020-05 PROGRESS HNO ID: [id number] Normal 06-01-2020 [facility] Author: Branden (Network Navigator) [facility] [place] ([id number]) Service: ? Author Type: Sales Consultant Type: Progress Notes Filed: 06/01/2020 12:42 PM Note Text: Patient has follow up with next Thursday for Pancreatitis. progress on 2020-05 PROGRESS HNO ID: [id number] Normal 05-31-2020 [facility] Author: Marcelino Mejia [place] ([id number]) Service: ? 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 She has been seeing them for recurring pancreatit is and stomach issues. I have nothing further I can add to her care at this time. PROGRESS HNO ID: [id number] Normal 05-31-2020 [facility] Author: Branden (Network Navigator) [facility] [place] ([id number]) Service: ? Author Type: Sales Consultant Type: Progress Notes Filed: 05/31/2020 8:49 AM [...] appointment. Thank you SUMMARY: Pt discharged from [facility] on May 29, 2020 Admitted for: Intractable nausea and vomitting Contact made with patient: Yes Hi my name is Branden Greg, NETWORK NAVIGATOR and I am calling from the [facility] on behalf of your PCP, Marcelino [...] like to speak with a social work support team member to help give you support [...] I will send your request to a environmental services worker who will contact and assist you [...] out to patient to assist with scheduling EXTENSION SERVICE SPECIALIST IN CHARGE: Rajinder Meyers status is: Active account Thank [...] on 2020-05-31 CNPN Telephone (GSTNOR) Normal 05-31-2020 [place] [facility] SALLY VARGAS ([id number]) 1980 [facility] Date Time Provider Department ([id number]) 05/31/20 JOHNNY WINN GSTNOR During your visit today, we recorded the following informati on about you: Pierce Sunil Hutchinson 05/31/2020 2:37 PM Signed Patient call, said she was doing ok yesterday, today having epigastric abdominal pain, nausea and vomiting. Has app[facility] Dr. Almendarez next week. Advised ER consult [...] 05/31/20 progress on 2020-05 PROGRESS HNO ID: [id number] Normal 05-30-2020 [facility] Author: Allie (Network Navigator) Skyler Lara ([id number]) Service: ? Author Type: Sales Consultant Type: Progress Notes Filed: 05/31/2020 8:49 AM Note Text: TRANSITIONAL CARE MANAGEMENT (TCM) COMMUNITY MONITORING PROG BRITTANI Provider Action/FYI: Message left for patient. Attempting to schedule TCM appoint ment SUMMARY: Pt discharged from [facility] on 05/29. Admitted for: intractable nausea and vomiting Contact made with patient: No - scheduled next outreach for next business day in the Track Pt Outreach section Outreach ended cnptoutreach on CNPTOUTREACH Patient Outreach (FAMPWS) Normal 0 05-30-2020 [place] SALLY Martinez ([id number]) 1980 [facility] Date Time Provider Department ([id number]) 05/30/20 ALLIE HOLLAND (NETWORK NAVIGATOR)[facility] During your visit today, we recorded the following informati on about you: Allie Holland NETWORK NAVIGATOR 05/31/2020 8:49 AM Signed TRANSITIONAL CARE MANAGEMENT (TCM) COMMUNITY MONITORING PROG BRITTANI Provider Action/FYI: Message left for patient. Attempting to schedule TCM appoint ment SUMMARY: Pt discharged from [facility] on 05[facility]29. Admitted for: intractable nausea and [...] appointment. Thank you SUMMARY: Pt discharged from [facility] on May 29, 2020 Admitted for: Intractable nausea and vomitting Contact made with patient: Yes Hi my name is Branden Riverashade, NETWORK NAVIGATOR and I am calling from the [facility] on behalf of your PCP, Marcelino [...] like to speak with a social work support team member to help give you support [...] I will send your request to a environmental services worker who will contact and assist you [...] out to patient to assist with scheduling EXTENSION SERVICE SPECIALIST IN CHARGE: Patient Mira status is: Active account Thank [...] 05/31/2020 10:49 AM Signed 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 a non destructive testing 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 and would work on getting her back [...] and vomiting [R11.2] 05/25/2020 Encounter Status:Closed by [facility]AL[facility]AN on 05/31/20 progress on 2020-05 PROGRESS HNO ID: [id number] [place] 05-29-2020 [place] Author: Vickie Srivastava General Service: Hospital Medicine Medical Author Type: Resident Center Type: Progress Notes ([id number]) Filed: 05/29/2020 2:51 PM Note Text: Attestation [...] PM: You may reach the House Medicine social media intern currently assigned to this patient by jack mahoney their pager number on the treatment team (they will be assigned as the i ntern or resident). It is the last four digits in the phone number be ginning with ([phone]). We encourage the use of [employer] Here Secure Chat. SUBJECTIVE HPI: 39 year old F PMHx idiopathic pancreatitis, hepatic cys ts presenting to the ED with intractable nausea and vomiting as well as RU Q abdominal pain for the past 3 days. States that she called her GI doct or Dr. Winn and he told her to come into the ED. She has a [facility] ed for 05/[address] Winn. Was [...] DAILY 05/25/201935 -- 05/25/201944 pneumatic compression stockings (hi,oh) VTE Prophylaxis: VTE prophylaxis appropriate GI Prophylaxis: Indicated due to chronic acid suppression th erapy as an outpatient Telemetry: no Disposition: Home Code Status: Not on file Plan of care discussed with: Provider, RN, Patient SIGNATURE: Vickie Srivastava MD PATIENT NAME: Sally shannon DATE: May 29, 2020 TIME: 1:53 PM plan of care on PLAN OF CARE HNO ID: [id number] Normal 05-29-20 [facility] Author: Irma Estrada (Pharmacist) Center ([id number]) Service: Pharmacy Author Type: Pharmacist Type: Plan [...] PHARMACIST May 29, 2020 2:50 PM Pager: [phone] 05/29/2020 2:50 PM Medication List START taking [...] Medications These medications were sent to e- [facility]/pharmacy [id number] [place] [address] - [address] - [phone] [address] [address] [address] ? oxyCODONE IR 5 mg immediate release tablet PLAN OF CARE HNO ID: [id number] Normal 05-29-20 [facility] Author: Irma Estrada (Pharmacist) Center ([id number]) Service: Pharmacy Author Type: Pharmacist Type: Plan of Care Filed: 05/29/2020 2:49 PM Note Text: MEDICATION RECONCILIATION Patient Name:Marlen Vargas : 1980 Reconciliation: Yes All OIL TREATER medications addressed by LIP Additional comments: aggree with student note Allergies: ALLERGIES Allergen Reactions - Penicillins Rash - Cephalexin Itching - Chlorhexidine Rash Skin rash - Toradol [Ketorolac] Rash - Tramadol Rash - Asa [Salicylates] Other: See Comments ulcers - Contrast Dye [Iodin* Shortness of Breath - Ibuprofen GI Upset - Prednisone Other: See Comments makes agitated and mean Preferred Pharmacy: [facility] Current OIL TREATER Medications: Prior to Admission medications as of 05/29/20927 Medication Sig Last Dose Taking prazosin (MINIPRESS) 1 mg cap Take 1 mg by mouth daily at [facility]. Yes hyoscyamine (LEVSIN) 0.125 mg tablet [...] 2:47 PM PLAN OF CARE HNO ID: [id number] Normal 05-29-[address] [place] [address] Author: Irma Estrada (Pharmacist) Center ([id number]) Service: Pharmacy Author Type: Pharmacist Type: Plan of Care Filed: 05/29/2020 2:47 PM Note Text: MEDICATION HISTORY Patient Name:Marlen Vargas : 1980 Source of history:Patient: Reliability of source: Appears re liable, clearly identified: Medication name, Medication frequency an d Timing of last dose and Pharmacy records: [id number] in [place], [place] [phone] Medication Nonadherence Identified: No barriers noted The above information represents the best possible medicatio n history: Yes Additional comments: Confirmed with patient and pharmacist hanna hollis [facility] - Recent changes to medications outpatient from Dr. Winn, patient did not start Sucralfate and Promethazine prior to admission and only took 1 dose of Hyoscyamine prior to admission Oxnue-fe-Bmohdyovd Medication List Adjustments: Medication Regimen Changes: Promethazine [...] makes agitated and mean Preferred Pharmacy: [facility] #[id number] phone [phone] Current OIL TREATER Medications: Prior to Admission medications as of [...] 40 mg tablet Take 1 tablet by nikc th daily before breakfast. Take on empty stomach, 1/2 hr before meal. Maggi Hernandez (E Commerce Marketing Manager) May 29, 2020 9:14 AM mdrd gfr on 2020-05 GFR/1.73 sq M >60 >60mL/min/1.73m2 mL/min/{1.73_m2} Normal [facility] among [facility] non-blacks MDRD (000 00) (S/P/Bld) [Vol rate/Area] Comment: Result Comment: If the patie nt is , multiply the result by 1.210. Performed By: #### GFR #### [address] [address] hemogram on 2020-05 Erythrocyte distribution 13.2 11.7-14.4 % Normal 05-29 [facility] width (RBC) [Ratio] System (16880) Comment: Performed By: #### LIP #### [address] [address] Hematocrit (Bld) [Volume 36.1 34.1-44.9 % Normal 05-29 [facility] fraction] System (00 000) Comment: Performed By: #### LIP #### [facility] [address] [place], [place] [address] Hemoglobin (Bld) 11.5 11.2-15.7 g/dL Normal 05-29-2020 [facility] [Mass/Vol] System (0 0000) Comment: Performed By: #### LIP #### [facility] [address] [place], [place] [address] MCH (RBC) [Entitic mass] 29.0 25.6-32.2 pg Normal 05-29 [facility] (00 000) Comment: Performed By: #### LIP #### [facility] [address] [place], [place] [address] MCHC (RBC) [Mass/Vol] 31.9 31.6-34.8 % Normal 05-29-[address] [facility] (92942) Comment: Performed By: #### LIP #### [facility] [address] [place], [place] [address] MCV (RBC) [Entitic vol] 90.9 79.4-94.[address] [facility] (00 000) Comment: Performed By: #### LIP #### [facility] [address] [place], [place] [address] Platelet mean volume (Bld) 10.9 9.4-12.3 fl Normal [facility] [Entitic vol] System (82216) Comment: Performed By: #### LIP #### [facility] [address] [place], [place] [address] Platelets (Bld) [#/Vol] 223 182-369 thou/cmm Normal 2019 [facility] (00 000) Comment: Performed By: #### LIP #### [facility] [address] [place], [place] [address] RBC (Bld) [#/Vol] 3.97 3.93-5.22 mil/cmm Normal 05-29-2020 [facility] (00 000) Comment: Performed By: #### LIP #### [facility] [address] [place], [place] [address] RDW SD 43.5 36.4-46.3 fl Normal 05-29-2020 [facility] (13127) Comment: Performed By: #### LIP #### [facility] [address] [place], [place] [address] WBC (Bld) [#/Vol] 5.88 3.98-10.04 thou/cmm Normal 05-29-2020 [facility] (00 000) Comment: Performed By: #### LIP #### [facility] [address] [place], [place] [address] consult on CONSULT HNO ID: [id number] Normal 05-29-2020 [facility] Author: Maria Luisa Joyner [facility] Service: Pain Management ([id number]) Author Type: Physician Type: Consults Filed: 05/29/2020 11:10 AM Note Text: SALLY VARGAS 39 year old PAIN CONSULTATION: Abdominal pain, history of idiopathic verdugo creatitis. 24 HOUR COMFORT MEDICATIONS: Tylenol x0 Benadryl 50 mg x 2 Phenergan 25 mg x 2 Oxycodone 10 mg x 3 Quetiapine 100 mg daily [place] prescription history Shows occasional use of opiates, [...] hepatic cysts, and no evidence of ac te-moak pancreatitis with normal lipase, and CBC. At [...] (TYLENOL) 650 mg ORAL q 4 H CA N Johnny Personhu - prazosin (MINIPRESS) 1 [...] Approx. 3 cigarettes daily-1 pack every w [place] Substance Use Topics - Alcohol use: Yes [...] [Moles/Vol] 11 9-18 mmol/L Normal 05-29-20 [facility] (79910) Comment: Performed By: #### LIP #### [facility] [address] [place], [place] [address] Calcium [Mass/Vol] 8.8 8.5-10.2 mg/dL Normal 05-29-2020 [facility] (79187) Comment: Performed By: #### LIP #### [facility] [address] [place], [place] [address] Chloride [Moles/Vol] 104 97-105 mmol/L Normal 0 [facility] (03849) Comment: Performed By: #### LIP #### [facility] [address] [place], [place] [address] CO2 Blood 23 22-30 mmol/L Normal 05-29-2020 [facility] (47275) Comment: Performed By: #### LIP #### [facility] [address] [place], [place] [address] Creatinine [Mass/Vol] 0.78 0.58-0.96 mg/dL Normal 05-29-20 [facility] (00 000) Comment: Performed By: #### LIP #### [facility] [address] [place], [place] [address] Glucose [Mass/Vol] 88 74-99 mg/dL Normal 05-29-2020 [facility] (67958) Comment: Result Comment: The [place] Diabetes Association (ADA) provides guidance for cutoff [...] Standards of Medical Care in Diabetes 2016; [place] Diabetes Association. Diabetes Care. 2016;39(Suppl 1). Performed By: #### LIP #### [place] [address] Potassium [Moles/Vol] 3.4 3.7-5.1 mmol/L Low 05-29-20 [facility] (31189) Comment: Performed By: #### LIP #### [place] [address] Sodium [Moles/Vol] 138 136-144 mmol/L Normal 05-29-2020 [facility] (74311) Comment: Performed By: #### LIP #### [place] [address] Urea nitrogen [Mass/Vol] 6 7-21 mg/dL Low 05-29 [facility] (07565) Comment: Performed By: #### LIP #### [place] [address] surgical tissue exam on 2020-05-28 Surgical Tissue Test performed at [facility] Normal 05-28-2020 [facility] General Exam [facility] [address] [place] [address] ([id number]) NAME: SALLY VARGAS REQUESTING: JOHNNY WINN MD [...] 1 Comment: Performed By: #### LIP #### [place] [address] pt ed on 2020-05-28 PT ED HNO ID: [id number] Normal 05-28-2020 [facility] Author: Flakita Ragland RN [place] ([id number]) Service: Nursing Author Type: Registered Nurse Type: [...] Flakita Ragland RN PT ED HNO ID: [id number] [place] 05-28-2020 [facility] Author: Flakita Ragland RN Center ([id number]) Service: Nursing Author Type: Registered Nurse Type: [...] RN progress on 2020-05 PROGRESS HNO ID: [id number] Normal 05-28-2020 [employer] Author: Vickie (Dena Srivastava [facility] Service: Hospital Medicine Medical Author Type: Resident Center Type: Progress Notes ([id number]) Filed: 05/28/2020 1:52 PM Note Text: Attestation [...] PM: You may reach the House Medicine social media intern currently assigned to this patient by findin g their pager number on the treatment team (they will be assigned as the i ntern or resident). It is the last four digits in the phone number be ginning with ([phone]). We encourage the use of Umbrella Here Secure Chat. SUBJECTIVE HPI: 39 year old F PMHx idiopathic pancreatitis, hepatic cys ts presenting to the ED with intractable nausea and vomiting as well as RU Q abdominal pain for the past 3 days. States that she called her GI doct or Dr. Winn and he told her to come into the ED. She has a scope [facility] ed for 05/[address] Winn. Was [...] 05/25/20 193 -- 05/25/201944 pneumatic compression stockings (hi,id) VTE Prophylaxis: VTE prophylaxis appropriate GI Prophylaxis: Indicated due to chronic acid suppression th erapy as an outpatient Telemetry: no Disposition: Home Code Status: Not on file Plan of care discussed with: Provider, RN, Patient SIGNATURE: Vickie Srivastava MD PATIENT NAME: Sally shannon DATE: May 28, 2020 TIME: 1:53 PM operative no on 202 OPERATIVE NO HNO ID: [id number] Normal 05-28-20 [facility] Author: Johnny Mccall [facility] Service: Gastroenterology ([id number]) Author Type: Physician Type: Operative Report Filed: 05/28/2020 1:07 PM Note Text: OPERATIVE/PROCEDURE REPORT LOG ID: [id number] Surgery/Procedure Date: 05/28/2020 Incision/Procedure Start Time: 12:32 PM Incision Close/Procedure End Time: 1:00 PM Surgeon(s)/Proceduralist(s) and Nurses' Registry Director(s): Surgeon(s) and Role: * Johnny Personhu - [...] PPI. nursing prog on NURSING HNO ID: [id number] Normal 05-28-2020 [employer] PRO Author: Rupal (Rn) LUCIUS Benitez General Service: Nursing Med ical Author Type: Registered Nurse Center Type: Nursing Progress Note ([id number]) Filed: 05/28/2020 5:25 AM Note Text: Nursing Progress Note Patient Name: Sally Vargas Patient Location: [id number]- Attempted to draw AM labs. Was unsuccessful x 2 attempts. This note was completed by: Rupal Benitez RN hemogram on 2020-05 Erythrocyte distribution 13.2 11.7-14.4 % Normal 05-28 [facility] width (RBC) [Ratio] System (60096) Comment: Performed By: #### LIP #### [address] [address] Hematocrit (Bld) [Volume 32.2 34.1-44.9 % Low 05-28 [facility] fraction] System (00 000) Comment: Performed By: #### LIP #### [facility] [address] [place], [place] [address] Hemoglobin (Bld) [Mass/Vol] 10.1 11.2-15.7 g/dL Low [facility] (00 000) Comment: Performed By: #### LIP #### [facility] [address] [place], [place] [address] MCH (RBC) [Entitic mass] 28.5 25.6-32.2 pg Normal 05-28 [facility] (00 000) Comment: Performed By: #### LIP #### [facility] [address] [place], [place] [address] MCHC (RBC) [Mass/Vol] 31.4 31.6-34.8 % Low 05-28-[address] [facility] (55526) Comment: Performed By: #### LIP #### [facility] [address] [place], [place] [address] MCV (RBC) [Entitic vol] 90.7 79.4-94.[address] [facility] (00 000) Comment: Performed By: #### LIP #### [facility] [address] [place] [id number] Platelet mean volume (Bld) 10.7 9.4-12.3 fl Normal [facility] [Entitic vol] System (34616) Comment: Performed By: #### LIP #### [facility] [address] [place], [place] [address] Platelets (Bld) [#/Vol] 186 182-369 thou/cmm Normal 2019 [facility] (00 000) Comment: Performed By: #### LIP #### [facility] [address] [place], [place] [address] RBC (Bld) [#/Vol] 3.55 3.93-5.22 mil/cmm Low 05-28-2020 [facility] (97525) Comment: Performed By: #### LIP #### [facility] [address] [place], [place] [address] RDW SD 43.3 36.4-46.3 fl Normal 05-28-2020 [facility] (63643) Comment: Performed By: #### LIP #### [facility] [address] [place], [place] [address] WBC (Bld) [#/Vol] 6.36 3.98-10.04 thou/cmm Normal 05-28-2020 [facility] (00 000) Comment: Performed By: #### LIP #### [facility] [address] [place], [place] [address] consult on CONSULT HNO ID: [id number] Normal 05-28-2020 [facility] Author: Ramone Albarado [facility] Service: Pain Management ([id number]) Author Type: Physician Type: Consults Filed: 05/28/2020 9:09 AM Note Text: SALLY VARGAS 39 year old PAIN CONSULTATION: Abdominal pain, history of idiopathic verdugo creatitis. 24 HOUR COMFORT MEDICATIONS: Oxycodone 10 mg x 3 Quetiapine 100 mg daily [place] prescription history Shows occasional use of opiates, [...] hepatic cysts, and no evidence of ac te-moak pancreatitis with normal lipase, and CBC. At this time, not experiencing any fever, chills, sweats, he matemesis, hematochezia, additional GI, , constitutional, pulmonary, or other symptoms. Current Facility-Administered Medications Medication Dose Route Frequency Provider Last Rate Last Dose - oxyCODONE IR 10 mg tab(s) (ROXICODONE) 10 mg ORAL q 6 H CA N Maggi (Res) MD Mark 10 mg [...] (TYLENOL) 650 mg ORAL q 4 H CA N Eduar (Res) Metry - hyoscyamine (LEVSIN) [...] Approx. 3 cigarettes daily-1 pack every w [place] Substance Use Topics - Alcohol use: Yes [...] 8 9-18 mmol/L Low 05-28-[address] [facility] (72698) Comment: Performed By: #### LIP #### [facility] [address] [place], [place] [address] Calcium [Mass/Vol] 7.2 8.5-10.2 mg/dL Low 05-28-2020 [facility] (35533) Comment: Performed By: #### LIP #### [facility] [address] [place], [place] [address] Chloride [Moles/Vol] 111 97-105 mmol/L High 0 [facility] (01629) Comment: Performed By: #### LIP #### [facility] [address] [place], [place] [address] CO2 Blood 22 22-30 mmol/L Normal 05-28-2020 [facility] (53637) Comment: Performed By: #### LIP #### [facility] [address] [place], [place] [address] Creatinine [Mass/Vol] 0.69 0.58-0.96 mg/dL Normal 05-28-[address] [facility] (00 000) Comment: Performed By: #### LIP #### [facility] [address] [place], [place] [address] Glucose [Mass/Vol] 73 74-99 mg/dL Low 05-28-2020 [facility] (30456) Comment: Result Comment: The [place] Diabetes Association (ADA) provides guidance for cutoff [...] Standards of Medical Care in Diabetes 2016; [place] [employer] Association. Diabetes Care. 2016;39(Suppl 1). Performed By: #### LIP #### [facility] [address] [place], [place] [address] Potassium [Moles/Vol] 2.9 3.7-5.1 mmol/L Low 05-28-[address] [facility] (91193) Comment: Performed By: #### LIP #### [facility] [address] [place], [place] [address] Sodium [Moles/Vol] 141 136-144 mmol/L Normal 05-28-2020 [facility] (32954) Comment: Performed By: #### LIP #### [facility] [address] [place], [place] [address] Urea nitrogen [Mass/Vol] 5 7-21 mg/dL Low 05-28 [facility] (61739) Comment: Performed By: #### LIP #### [facility] [address] [place], [place] [address] anes preop on 05-28 ANES PREOP HNO ID: [id number] Normal 05-28-2020 [facility] Author: Delon Florence [facility] Service: Anesthesiology ([id number]) Author Type: Physician Type: Anesthesia PreOp Filed: [...] Benign liver cyst 05/24/2010 CT scan at [facility] 11/2009 and 04/2010 showe 4 mm increase in size . No pain. No elevated LFTs on 03/11/2010. - Calculus of kidney 05/17/[address] Nicolas: Hospitalized age 20, and again later -- no procedures so far ([facility], most, 1995 [facility]) - Cancer (HCC) - Diverticulosis - [...] Approx. 3 cigarettes daily-1 pack every w [place] Substance Use Topics - Alcohol use: Yes [...] May 28, 2020 TIME: 12:15 PM CSN: [id number] anes post on 05-28 ANES POST HNO ID: [id number] Normal 05-28-2020 [facility] Author: Delon Duenas [place] ([id number]) Service: Anesthesiology Author Type: Physician Type: Anesthesia [...] 1001 progress on 2020-05 PROGRESS HNO ID: [id number] Normal 05-27-2020 [employer] Author: Vickie Srivastava [facility] Service: Hospital Medicine Medical Author Type: Resident Center Type: Progress Notes ([id number]) Filed: 05/27/2020 4:19 PM Note Text: Attestation [...] PM: You may reach the House Medicine social media intern currently assigned to this patient by jack mahoney their pager number on the treatment team (they will be assigned as the i ntern or resident). It is the last four digits in the phone number be ginning with ([phone]). We encourage the use of U[employer]rella Here Secure Chat. SUBJECTIVE HPI: 39 year old F PMHx idiopathic pancreatitis, hepatic cys ts presenting to the ED with intractable nausea and vomiting as well as RU Q abdominal pain for the past 3 days. States that she called her GI doct or Dr. Winn and he told her to come into the ED. She has a scope [facility] ed for 05/[address] Winn. Was [...] DAILY 05/25/201935 -- 05/25/201944 pneumatic compression stockings (hi,oh) VTE Prophylaxis: VTE prophylaxis appropriate GI Prophylaxis: Indicated due to chronic acid suppression th erapy as an outpatient Telemetry: no Disposition: Home Code Status: Not on file Plan of care discussed with: Provider, RN, Patient SIGNATURE: Vickie Srivastava MD PATIENT NAME: Sally shannon DATE: May 27, 2020 TIME: 1:53 PM plan of care on PLAN OF CARE HNO ID: [id number] Normal 05-27-20 [facility] Author: Joe Romero) [facility] Service: Gastroenterology ([id number]) Author Type: Physician Nurses' Registry Director Type: Plan of Care Filed: 05/27/2020 [...] (TYLENOL) 650 mg ORAL q 4 H CA N - oxyCODONE IR 10 mg tab(s) (ROXICODONE) 10 mg ORAL q 6 H CA N Objective PHYSICAL EXAM: VITALS:BP 119/74 Pulse [...] 27, 2020 TIME: 1:15 PM PAGER/CONTACT #: Private Branch Exchange Operator Pager hemogram on 2020-05 Erythrocyte distribution 13.3 11.7-14.4 % Normal 05-27 [facility] width (RBC) [Ratio] System (04278) Comment: Performed By: #### LIP #### [address] [address] Hematocrit (Bld) [Volume 35.9 34.1-44.9 % Normal 05-27 [facility] fraction] System (00 000) Comment: Performed By: #### LIP #### [address] [address] Hemoglobin (Bld) 11.3 11.2-15.7 g/dL Normal 05-27-2020 [facility] [Mass/Vol] System (0 0000) Comment: Performed By: #### LIP #### [facility] [address] [place], [place] [address] MCH (RBC) [Entitic mass] 29.1 25.6-32.2 pg Normal 05-27 [facility] (00 000) Comment: Performed By: #### LIP #### [facility] [address] [place], [place] [address] MCHC (RBC) [Mass/Vol] 31.5 31.6-34.8 % Low 05-27-[address] [facility] (32193) Comment: Performed By: #### LIP #### [facility] [address] [place], [place] [address] MCV (RBC) [Entitic vol] 92.5 79.4-94.[address] [facility] (00 000) Comment: Performed By: #### LIP #### [facility] [address] [place] [id number] Platelet mean volume (Bld) 10.6 9.4-12.3 fl Normal [facility] [Entitic vol] System (08323) Comment: Performed By: #### LIP #### [facility] [address] [place], [place] [address] Platelets (Bld) [#/Vol] 197 182-369 thou/cmm Normal 2019 [facility] (00 000) Comment: Performed By: #### LIP #### [facility] [address] [place], [place] [address] RBC (Bld) [#/Vol] 3.88 3.93-5.22 mil/cmm Low 05-27-2020 [facility] (11217) Comment: Performed By: #### LIP #### [facility] [address] [place], [place] [address] RDW SD 44.6 36.4-46.3 fl Normal 05-27-2020 [facility] (17247) Comment: Performed By: #### LIP #### [facility] [address] [place], [place] [address] WBC (Bld) [#/Vol] 6.15 3.98-10.04 thou/cmm Normal 05-27-2020 [facility] (00 000) Comment: Performed By: #### LIP #### [facility] [address] [place], [place] [address] basic metabolic panel on 2020-05-27 Anion gap [Moles/Vol] 10 9-18 mmol/L Normal 05-27-[address] [facility] (30785) Comment: Performed By: #### LIP #### [facility] [address] [place], [place] [address] Calcium [Mass/Vol] 8.6 8.5-10.2 mg/dL Normal 05-27-2020 [facility] (70514) Comment: Performed By: #### LIP #### [facility] [address] [place], [place] [address] Chloride [Moles/Vol] 106 97-105 mmol/L High 0 [facility] (98461) Comment: Performed By: #### LIP #### [facility] [address] [place], [place] [address] CO2 Blood 24 22-30 mmol/L Normal 05-27-2020 [facility] (86476) Comment: Performed By: #### LIP #### [facility] [address] [place], [place] [address] Creatinine [Mass/Vol] 0.87 0.58-0.96 mg/dL Normal 05-27-[address] [facility] (00 000) Comment: Performed By: #### LIP #### [facility] [address] [place], [place] [address] Glucose [Mass/Vol] 82 74-99 mg/dL Normal 05-27-2020 [facility] (26167) Comment: Result Comment: The [place] Diabetes Association (ADA) provides guidance for cutoff [...] Standards of Medical Care in Diabetes 2016; [place] [employer] Association. Diabetes Care. 2016;39(Suppl 1). Performed By: #### LIP #### [facility] [address] [place], [place] [address] Potassium [Moles/Vol] 3.5 3.7-5.1 mmol/L Low 05-27-[address] [facility] (75681) Comment: Performed By: #### LIP #### [facility] [address] [place], [place] [address] Sodium [Moles/Vol] 140 136-144 mmol/L Normal 05-27-2020 [facility] (91318) Comment: Performed By: #### LIP #### [facility] [address] [place], [place] [address] Urea nitrogen [Mass/Vol] 7 7-21 mg/dL Normal 05-27 [facility] (78437) Comment: Performed By: #### LIP #### [facility] [address] [place], [place] [address] progress on 2020-05 PROGRESS HNO ID: [id number] Normal 05-26-2020 [employer] Author: Vickie Srivastava [facility] Service: Hospital Medicine Medical Author Type: Resident Center Type: Progress Notes ([id number]) Filed: 05/26/2020 2:11 PM Note Text: Attestation signed by Oh Arreaga at 05/26/2020 2:23 PM Attending Note I personally saw and examined the patient on 05/26/20. I rev iewed the resident's note. I agree with the resident's assessment and plan unless otherwise noted. Signature: Oh Arreaga, DO Date: 05/26/2020 Time: 2:23 PM Pager: [phone] HOUSE MEDICINE SERVICE PROGRESS NOTE SERVICE DATE: May 26, 2020 SERVICE TIME: 1:53 PM NIGHT AND WEEKEND COVERAGE: From 6 AM to 5 PM: You may reach the House Medicine social media intern currently assigned to this patient by jack g their pager number on the treatment team (they will be assigned as the i ntern or resident). It is the last four digits in the phone number be ginning with ([phone]). We encourage the use of U[employer]rella Here Secure Chat. SUBJECTIVE HPI: 39 year old [...] 05/25/20 193 -- 05/25/201944 pneumatic compression stockings (hi,oh) VTE Prophylaxis: VTE prophylaxis appropriate GI Prophylaxis: Indicated due to chronic acid suppression th erapy as an outpatient Telemetry: no Disposition: Home Code Status: Not on file Plan of care discussed with: Provider, RN, Patient SIGNATURE: Vickie Srivastava MD PATIENT NAME: Sally shannon DATE: May 26, 2020 TIME: 1:53 PM hemogram on 2020-05 Erythrocyte distribution 13.3 11.7-14.4 % Normal 05-26 [facility] width (RBC) [Ratio] System (57282) Comment: Performed By: #### CBC1 #### [facility] [address] [place], [place] [address] Hematocrit (Bld) [Volume 33.7 34.1-44.9 % Low 05-26 [facility] fraction] System (00 000) Comment: Performed By: #### CBC1 #### [facility] [address] [place], [place] [address] Hemoglobin (Bld) [Mass/Vol] 10.8 11.2-15.7 g/dL Low [facility] ( 000) Comment: Performed By: #### CBC1 #### [facility] [address] [place], [place] [address] MCH (RBC) [Entitic mass] 29.3 25.6-32.2 pg Normal 05-26 [facility] (00 000) Comment: Performed By: #### CBC1 #### [facility] [address] [place], [place] [address] MCHC (RBC) [Mass/Vol] 32.0 31.6-34.8 % Normal 05-26-[address] [facility] (27912) Comment: Performed By: #### CBC1 #### [facility] [address] [place], [place] [address] MCV (RBC) [Entitic vol] 91.3 79.4-94.[address] [facility] (00 000) Comment: Performed By: #### CBC1 #### [facility] [address] [place], [place] [address] Platelet mean volume (Bld) 10.8 9.4-12.3 fl Normal [facility] [Entitic vol] System (44601) Comment: Performed By: #### CBC1 #### [facility] [address] [place], [place] [address] Platelets (Bld) [#/Vol] 226 182-369 thou/cmm Normal 2019 [facility] (00 000) Comment: Performed By: #### CBC1 #### [facility] [address] [place], [place] [address] RBC (Bld) [#/Vol] 3.69 3.93-5.22 mil/cmm Low 05-26-2020 [facility] (95358) Comment: Performed By: #### CBC1 #### [facility] [address] [place], [place] [address] RDW SD 44.3 36.4-46.3 fl Normal 05-26-2020 [facility] (66960) Comment: Performed By: #### CBC1 #### [facility] [address] [place], [place] [address] WBC (Bld) [#/Vol] 9.78 3.98-10.04 thou/cmm Normal 05-26-2020 [facility] (00 000) Comment: Performed By: #### CBC1 #### [facility] [address] [place], [place] [address] coronavirus 2019 on 2020-05-26 COVID 19 Result QUALITY LEAD Negative CORNE Normal 05-26-2020 [facility] (69054) Comment: Result Comment: Negative for COVID19 (SARS CoV2) by PCR. This test was developed and its performance characteristics determined by [facility]'s Johnnie Abreu Pathology and Laboratory Medicine [place]. This test has bee n authorized by [...] issued on November 12, 2019. Performing Laboratory: [facility] [address] [place] [address] Performed By: #### CD19X ### # [facility] [address] [place], [place] [address] consult on CONSULT HNO ID: [id number] Normal 05-26-2020 [facility] Author: Joe Romero) [facility] Service: Gastroenterology ([id number]) Author Type: Physician Nurses' Registry Director Type: Consults Filed: 05/26/2020 11:22 AM [...] [facility] She states she was instructed [...] Benign liver cyst 05/24/2010 CT scan at [facility] 11/2009 and 04/2010 showe 4 mm increase in size . No pain. No elevated LFTs on 03/11/2010. - Calculus of kidney 05/17/[address] Nicolas: Hospitalized age 20, and again later -- no procedures so far ([facility], most, [facility]) - Cancer (HCC) - Diverticulosis - [...] Approx. 3 cigarettes daily-1 pack every w [place] Substance Use Topics - Alcohol use: Yes [...] (TYLENOL) 650 mg ORAL q 4 H CA N ALLERGIES Allergen Reactions - Penicillins Rash [...] 26, 2020 TIME: 11:10 AM PAGER/CONTACT #: [phone] After 3PM please use on-call paging system basic metabolic panel on 2020-05-26 Anion gap [Moles/Vol] 9 9-18 mmol/L Normal 05-26-20 [facility] (86544) Comment: Performed By: #### BMP #### [facility] [address] [place], [place] [address] Calcium [Mass/Vol] 9.0 8.5-10.2 mg/dL Normal 05-26-2020 [facility] (29357) Comment: Performed By: #### BMP #### [facility] [address] [place], [place] [address] Chloride [Moles/Vol] 104 97-105 mmol/L Normal 0 [facility] (94190) Comment: Performed By: #### BMP #### [facility] [address] [place], [place] [address] CO2 Blood 25 22-30 mmol/L Normal 05-26-2020 [facility] (65239) Comment: Performed By: #### BMP #### [facility] [address] [place], [place] [address] Creatinine [Mass/Vol] 0.86 0.58-0.96 mg/dL Normal 05-26-[address] [facility] (00 000) Comment: Performed By: #### BMP #### [facility] [address] [place], [place] [address] Glucose [Mass/Vol] 87 74-99 mg/dL Normal 05-26-2020 [facility] (97652) Comment: Result Comment: The [place] Diabetes Association (ADA) provides guidance for cutoff [...] Standards of Medical Care in Diabetes 2016; [place] [employer]. Diabetes Care. 2016;39(Suppl 1). Performed By: #### BMP #### [place] [id number] Potassium [Moles/Vol] 3.5 3.7-5.1 mmol/L Low 05-26-[address] [facility] (92211) Comment: Performed By: #### BMP #### [address] [address] Sodium [Moles/Vol] 138 136-144 mmol/L Normal 05-26-2020 [facility] (00337) Comment: Performed By: #### BMP #### [facility] [address] [place], [place] [address] Urea nitrogen [Mass/Vol] 9 7-21 mg/dL Normal 05-26 [facility] (54982) Comment: Performed By: #### BMP #### [facility] [address] [place], [place] [address] urine drug screen o n 2020-05-25 Urine Alcohol <11 0-11 Normal 05-25-2020 [facility] (98418) Comment: Performed By: #### UDRG3 ### # [address] [address] Urine Amphetamine NEGATIVE NEGATIVE Normal 05-25-2020 [facility] (72194) Comment: Performed By: #### UDRG3 ### # [facility] [address] [place], [place] [address] Urine Barbiturates NEGATIVE NEGATIVE Normal 05-25-2020 [facility] (78852) Comment: Performed By: #### UDRG3 ### # [facility] [address] [place], [place] [address] Urine Benzodiazepine NEGATIVE NEGATIVE Normal 0 [facility] (00 000) Comment: Performed By: #### UDRG3 ### # [facility] [address] [place], [place] [address] Urine Cocaine Metab NEGATIVE NEGATIVE Normal 05-25-2020 [facility] ([id number]) Comment: Performed By: #### UDRG3 ### # [facility] [address] [place], [place] [address] Urine Opiates see below NEGATIVE Abnormal 05-25-2020 [facility] (42610) Comment: Result Comment: PRESUMPTIVE POSITIVE Performed By: #### UDRG3 ### # [facility] [address] [place], [place] [address] Urine Oxycodone NEGATIVE NEGATIVE Normal 05-25-2020 [facility] (41992) Comment: Performed By: #### UDRG3 ### # [facility] [address] [place], [place] [address] Urine PCP NEGATIVE NEGATIVE Normal 05-25-2020 [facility] (33774) Comment: Result Comment: Test Cutoff Unit Amphetamines 1000 ng/mL Barbiturates 200 ng/mL Benzodiazepines 200 ng/mL Cannabinoids 50 ng/mL Cocaine 300 ng/mL Opiates 300 ng/mL Oxycodone 100 ng/mL Phencyclidine 25 ng/mL Reference Range: Negative at cutoff threshold Immunoassay screen only. Cloth Burler ss reactivity with other substances can occur [...] the same specimen through the laboratory at ([phone]) if contact ed within 48 hours of initial 1. Substance Abuse and [facility] Services Administration (2012). Clini sam Drug Testing in Primary Care Technical Assistance Shailaa tiyaquelin Series 32. Department of Health and Human Services, U SA, p.10. Performed By: #### UDRG3 ### # [facility] [address] [place] [address] Urine THC NEGATIVE NEGATIVE Normal 05-25-2020 [facility] (53894) Comment: Performed By: #### UDRG3 ### # [facility] [address] [place] [address] urinalysis routine on 2020-05-25 RBC LM.HPF (Urine sed) 0.0-3 0.0-5.0 Normal 020 [facility] [#/Area] System (00 000) Comment: Performed By: #### URIN2 ### # [facility] [address] [place] [address] Bacteria LM.HPF (Urine sed) NONE None Normal [facility] [#/Area] (50473) Comment: Performed By: #### URIN2 ### # [place] [address] Ep Cells Urine 21.5 0.0-5.0 /hpf High 05-25-2020 [facility] (52803) Comment: Performed By: #### URIN2 ### # [place] [address] Hyaline Cast 0.0 0.0-1.0 /lpf Normal 05-25-2020 [facility] (76464) Comment: Performed By: #### URIN2 ### # [facility] [address] [place] [address] WBC LM.HPF (Urine sed) 2.9 0.0-5.0 /hpf Normal 020 [facility] [#/Area] System (00 000) Comment: Performed By: #### URIN2 ### # [place] [address] Appearance (U) CLOUDY Normal 05-25-2020 [facility] (43127) Comment: Performed By: #### URIN2 ### # [facility] [address] [place], [place] [address] Bilirubin (U) NEGATIVE Negative mg/dL Normal 05-25-2020 [facility] [Mass/Vol] System (0 0000) Comment: Performed By: #### URIN2 ### # [facility] [address] [place], [place] [address] Color (U) YELLOW Normal 05-25-2020 [facility] (80404) Comment: Performed By: #### URIN2 ### # [facility] [address] [place], [place] [address] Glucose Ql (U) NEGATIVE Negative Normal 05-25-2020 [facility] (31593) Comment: Performed By: #### URIN2 ### # [facility] [address] [place], [place] [address] Hemoglobin,Urine NEGATIVE Negative Normal 05-25-[address] [facility] (22996) Comment: Performed By: #### URIN2 ### # [facility] [address] [place], [place] [address] Ketone Urine NEGATIVE Negative Normal 05-25-2020 [facility] (39182) Comment: Performed By: #### URIN2 ### # [facility] [address] [place], [place] [address] Leukocytes Esterase NEGATIVE Negative Normal 05-25-2020 [facility] (38549) Comment: Performed By: #### URIN2 ### # [facility] [address] [place], [place] [address] Nitrites Urine NEGATIVE Negative Normal 05-25-2020 [facility] (13415) Comment: Performed By: #### URIN2 ### # [facility] [address] [place], [place] [address] pH (U) 5.5 5.0-8.0 [pH] Normal 05-25-2020 [facility] (44581) Comment: Performed By: #### URIN2 ### # [facility] [address] [place], [place] [address] Protein (U) [Mass/Vol] NEGATIVE Negative mg/dL Normal [address]20 [facility] (00 000) Comment: Performed By: #### URIN2 ### # [facility] [address] [place], [place] [address] Specific [place], Ur 1.024 1.005-1.[address] [facility] (00 000) Comment: Performed By: #### URIN2 ### # [facility] [address] [place], [place] [address] Urobilinogen,Ur 0.2 0.2-1.0 EU/dL Normal 05-25-2020 [facility] (52394) Comment: Performed By: #### URIN2 ### # [facility] [address] [place], [place] [address] nursing prog on NURSING PROG HNO ID: [id number] Normal 05-25-20 [facility] Author: Eleanor PickardRn) LUCIUS Parrish [place] ([id number]) Service: ? Author Type: Registered Nurse Type: [...] her allergy list and added Tramadol and celoi dol. Pt stated dilaudid and fentanyl work best for her. [place] med notified one time 4mg morphine ordered. Pt states it took her pain from 10 to an 8 . 2345: pt requesting something more for pain at this time. Re ceived oxycodone order Q6 PRN. lipase blood on Lipase Blood 25 16-61 U/L Normal 05-25-2020 [facility] (15916) Comment: Performed By: #### LIP #### [facility] [address] [place], [place] [address] hosp on 2020-05-25 HOSP Patient:Sally Vargas Normal 05-15 [employer] MRN: General Height:5' 1(1.549 m) Medical Weight:200 lb 6.4 oz (90.901 kg) Center Outpatient Medications as of 05/28/20: (59074) hyoscyamine (LEVSIN) 0.125 mg tablet sucralfate (CARAFATE) [...] 32.2 % 05/28/2020 44.9 34.1 Progress Notes ([facility]): Pierce Schwartz Ma 05/25/2020 4:24 PM Signed [...] since Thursday night. Patient was seen at [facility] on Thursday night where she was given fluids, told her labs looked fine and was discharged home. Sameer cheney follows with Dr. Winn for GI as she has a 9 cm cyst in her liver and history of pancreatitis . Patient is scheduled for endoscopy and ultrasound on . She states that Dr. Winn told her to come to [facility] ED for specific type of imaging but she cannot recall what kind. She states that she la s been having continued abdominal pain with [...] v Family history: of suicide, attempts, or [place] 1 psychiatri c disorders requiring hospitalization v Precipitants/Stressors/Interpersonal: triggering events le ading to humiliation, shame or despair (e.g; loss of relationship, fi nancial or Health status-real or antici pated). Ongoing medical illness (zohreh. LAWN CARE SPECIALIST disorders, pain). Intoxication. Family turmoil/chaos. History of [...] Benign liver cyst 05/24/2010 CT scan at [facility] 11/2009 and 04/2010 showe 4 mm increase in size . No pain. No elevated LFTs on 03/11/2010. - Calculus of kidney 05/17/[address] Nicolas: Hospitalized age 20, a nd again later -- no procedures so far ([facility], most, 1995 [facility]) - Cancer (HCC) - Diverticulosis - [...] Approx. 3 cigarettes daily-1 pack every w [place] Substance and Sexual Activity - Alcohol use: [...] PM: You may reach the House Medicine social media intern currently assigned to this patien t by finding their pager number on the treatment team (they will be assigned as the social media intern or resident). It is the last four digits in the phone num alyson beginning with ([phone]). We encourage the use of Umbrella Here Secure Chat. PCP: Marcelino Mejia MD Admitting [...] Benign liver cyst 05/24/2010 CT scan at [facility] 11/2009 and 04/2010 showe 4 mm increase in size . No pain. No elevated LFTs on 03/11/2010. - Calculus of kidney 05/17/[address] Nicolas: Hospitalized age 20, a nd again later -- no procedures so far ([facility], [facility], 1995 [facility]) - Cancer (HCC) - Diverticulosis - [...] removed - TOTAL ABDOM HYSTERECTOMY 08/31/06 Hysterectomy, [facility] FAMILY HISTORY Problem Relation Age of [...] Approx. 3 cigarettes daily-1 pack every w [place] Substance Use Topics - Alcohol use: Yes [...] Benign liver cyst 05/24/2010 CT scan at [facility] 11/2009 and 04/2010 showe 4 mm increase in size . No pain. No elevated LFTs on 03/11/2010. - Calculus of kidney 05/17/[address] Nicolas: Hospitalized age 20, a nd again later -- no procedures so far ([facility], [facility], 1995 [facility]) - Cancer (HCC) - Diverticulosis - [...] removed - TOTAL ABDOM HYSTERECTOMY 08/31/06 Hysterectomy, [facility] FAMILY HISTORY Problem Relation Age of [...] Approx. 3 cigarettes daily-1 pack every w [place] Substance Use Topics - Alcohol use: Yes [...] (TYLENOL) 650 mg ORAL q 4 H CA N ALLERGIES Allergen Reactions - Penicillins Rash [...] 26, 2020 TIME: 11:10 AM PAGER/CONTACT #: [phone] After 3PM please use on-call paging system Vickie Srivastava MD 05/26/2020 2:11 PM Attested Attestation signed by Oh Arreaga at 05/26/2020 2:23 PM Attending Note I personally saw and examined the patient on 05/26/20. I rev iewed the resident's note. I agree with the resident's assessment and plan unless otherwise noted. Signature: Oh Arreaga DO Date: 05/26/2020 Time: 2:23 PM Pager: [phone] HOUSE MEDICINE SERVICE PROGRESS NOTE SERVICE DATE: May 26, 2020 SERVICE TIME: 1:53 PM NIGHT AND WEEKEND COVERAGE: From 6 AM to 5 PM: You may reach the House Medicine social media intern currently assigned to this patien t by finding their pager number on the treatment team (they will be assigned as the social media intern or resident). It is the last four digits in the phone num alyson beginning with ([phone]). We encourage the use of Umbrella Here Secure Chat. SUBJECTIVE HPI: 39 year old [...] (TYLENOL) 650 mg ORAL q 4 H CA N - oxyCODONE IR 10 mg tab(s) (ROXICODONE) 10 mg ORAL q 6 H CA N Objective PHYSICAL EXAM: VITALS:BP 119/74 Pulse 63 Temp 36.3 ?C (97.3 ?F) (Oral) Resp 19 Ht 154.9 cm (5' 1) Wt 90.9 kg (200 lb 6.4 oz) LMP 2005 SpO2 99% BMI 37.87 kg/m? DATA: Diagnostic tests reviewed for today's visit: Most recent labs and imaging results. SIGNATURE: Joe Maldonado PA-C PATIENT NAME: Sally Vagras DATE: May 27, 2020 TIME: 1:15 PM PAGER/CONTACT #: Private Branch Exchange Operator Pager Vickie Srivastava MD 05/27/2020 4:19 PM [...] PM: You may reach the House Medicine social media intern currently assigned to this patien t by finding their pager number on the treatment team (they will be assigned as the social media intern or resident). It is the last four digits in the phone num alyson beginning with ([phone]). We encourage the use of Umbrella Here Secure Chat. SUBJECTIVE HPI: 39 year old [...] DAILY 05/25/201935 -- 05/25/201944 pneumatic compression stockings (hi,id) VTE Prophylaxis: VTE prophylaxis appropriate GI Prophylaxis: [...] Note Patient Name: Sally Vargas Patient Location: [id number]- Attempted to draw AM labs. Was unsuccessful x 2 attempts. This note was completed by: LUCIUS Conley MD 05/28/2020 8:57 AM Incomplete HOUSE MEDICINE SERVICE PROGRESS NOTE SERVICE DATE: May 28, 2020 SERVICE TIME: 1:53 PM NIGHT AND WEEKEND COVERAGE: From 6 AM to 5 PM: You may reach the House Medicine social media intern currently assigned to this patien t by finding their pager number on the treatment team (they will be assigned as the social media intern or resident). It is the last four digits in the phone num alyson beginning with ([phone]). We encourage the use of Umbrella Here Secure Chat. SUBJECTIVE HPI: 39 year old [...] delete will not show in completed note) :[id number] } Intractable nausea and vomiting Intractable nausea [...] delete will not show in completed note) :[id number] } Medication and Non-Pharmacologic VTE Prophylaxis/Anticoagula nts Anticoagulant AND Antiplatelet Medications (From admission, onward) Start Dose Route Frequency Ordered Stop 05/25/201999 enoxaparin 40 mg injection (LOVENOX) (Me dical Risk Categories) 40 mg SUBCUTANEOUS DAILY 05/25/201935 -- 05/25/201944 pneumatic compression stockings (hi,oh) VTE Prophylaxis: VTE prophylaxis appropriate GI Prophylaxis: [...] mg x 3 Quetiapine 100 mg daily [place] prescription history Shows occasional use of opiates, [...] (ROXICODONE) 10 mg ORAL q 6 H CA N Maggi (Res) MD Mark 10 mg [...] Approx. 3 cigarettes daily-1 pack every w [place] Substance Use Topics - Alcohol use: Yes [...] Benign liver cyst 05/24/2010 CT scan at [facility] 11/2009 and 04/2010 showe 4 mm increase in size . No pain. No elevated LFTs on 03/11/2010. - Calculus of kidney 05/17/[address] Nicolas: Hospitalized age 20, a nd again later -- no procedures so far ([facility], [facility], [facility]) - Cancer (HCC) - Diverticulosis - [...] removed - TOTAL ABDOM HYSTERECTOMY 08/31/06 Hysterectomy, [facility] FAMILY HISTORY Problem Relation Age of [...] Approx. 3 cigarettes daily-1 pack every w [place] Substance Use Topics - Alcohol use: Yes [...] May 28, 2020 TIME: 12:15 PM CSN: [id number] history physical on 2020-05-25 HISTORY HNO ID: [id number] Normal 05-25-2020 [employer] PHYSICAL Author: Maggi Flores MD General Service: Hospital Medicine Medical Author Type: Resident Center Type: [facility] ([id number]) Filed: 05/25/2020 5:42 PM Note Text: Attestation [...] PM: You may reach the House Medicine social media intern currently assigned to this patient by findin g their pager number on the treatment team (they will be assigned as the i ntern or resident). It is the last four digits in the phone number be ginning with ([phone]). We encourage the use of Umbrella Here Secure Chat. PCP: Marcelino Mejia MD Admitting [...] Benign liver cyst 05/24/2010 CT scan at [facility] 11/2009 and 04/2010 showe 4 mm increase in size . No pain. No elevated LFTs on 03/11/2010. - Calculus of kidney 05/17/[address] Nicolas: Hospitalized age 20, and again later -- no procedures so far ([facility], most, [facility]) - Cancer (HCC) - Diverticulosis - [...] removed - TOTAL ABDOM HYSTERECTOMY 08/31/06 Hysterectomy, [facility] FAMILY HISTORY Problem Relation Age of [...] Approx. 3 cigarettes daily-1 pack every w [place] Substance Use Topics - Alcohol use: Yes [...] Grans 0.09 0.00-0.05 thou/cmm High 05-25-2020 [facility] (00 000) Comment: Performed By: #### CBCD1 ### # [address] [address] Abs Neut (ANC) 3.14 1.56-6.13 thou/cmm Normal 05-25-2020 [facility] (10320) Comment: Performed By: #### CBCD1 ### # [address] [address] Abs. Baso 0.06 0.01-0.08 thou/cmm Normal 05-25-2020 [facility] (08539) Comment: Result Comment: Smear scanne d; tech agrees with automated differential Performed By: #### CBCD1 ### # [address] [address] Abs. [place] 0.50 0.27-0.70 thou/cmm Normal 05-25-2020 [facility] (33935) Comment: Performed By: #### CBCD1 ### # [address] [address] Basophils/100 WBC (Bld) 0.7 % Normal 2019 [facility] (21999) Comment: Performed By: #### CBCD1 ### # [address] [address] Eosinophils (Bld) 0.30 0.00-0.31 thou/cmm Normal 05-25-[address] [facility] [#/Vol] Health Sys tem (71793) Comment: Performed By: #### CBCD1 ### # [address] [address] Eosinophils/100 WBC (Bld) 3.6 % Normal 05-15 [facility] (78579) Comment: Performed By: #### CBCD1 ### # [facility] [address] [place], [place] [address] Immature Grans 1.10 % Normal 05-25-2020 [facility] (31072) Comment: Performed By: #### CBCD1 ### # [facility] [address] [place], [place] [address] Lymphocytes (Bld) [#/Vol] 4.34 1.18-3.74 thou/cmm High 05-15 [facility] (00 000) Comment: Performed By: #### CBCD1 ### # [facility] [address] [place], [place] [address] Lymphocytes/100 WBC (Bld) 51.5 % Normal 05-15 [facility] (71756) Comment: Performed By: #### CBCD1 ### # [facility] [address] [place], [place] [address] Monocytes/100 WBC (Bld) 5.9 % Normal 2019 [facility] (84060) Comment: Performed By: #### CBCD1 ### # [facility] [address] [place], [place] [address] Seg Neutrophil 37.2 % Normal 05-25-2020 [facility] (61493) Comment: Performed By: #### CBCD1 ### # [facility] [address] [place], [place] [address] Erythrocyte distribution 13.7 11.7-14.4 % Normal 05-25 [facility] width (RBC) [Ratio] System (35786) Comment: Performed By: #### CBCD1 ### # [facility] [address] [place], [place] [address] Hematocrit (Bld) [Volume 39.7 34.1-44.9 % Normal 05-25 [facility] fraction] System (00 000) Comment: Performed By: #### CBCD1 ### # [address] [address] Hemoglobin (Bld) 12.1 11.2-15.7 g/dL Normal 05-25-2020 [facility] [Mass/Vol] System (0 0000) Comment: Performed By: #### CBCD1 ### # [facility] [address] [place], [place] [address] MCH (RBC) [Entitic mass] 28.2 25.6-32.2 pg Normal 05-25 [facility] (00 000) Comment: Performed By: #### CBCD1 ### # [facility] [address] [place], [place] [address] MCHC (RBC) [Mass/Vol] 30.5 31.6-34.8 % Low 05-25-[address] [facility] (50762) Comment: Performed By: #### CBCD1 ### # [facility] [address] [place], [place] [address] MCV (RBC) [Entitic vol] 92.5 79.4-94.[address] [facility] (00 000) Comment: Performed By: #### CBCD1 ### # [facility] [address] [place], [place] [address] Platelet mean volume (Bld) 11.0 9.4-12.3 fl Normal [facility] [Entitic vol] System (03295) Comment: Performed By: #### CBCD1 ### # [facility] [address] [place], [place] [address] Platelets (Bld) [#/Vol] 254 182-369 thou/cmm Normal 2019 [facility] (00 000) Comment: Performed By: #### CBCD1 ### # [facility] [address] [place], [place] [address] RBC (Bld) [#/Vol] 4.29 3.93-5.22 mil/cmm Normal 05-25-2020 [facility] (00 000) Comment: Performed By: #### CBCD1 ### # [facility] [address] [place], [place] [address] RDW SD 46.5 36.4-46.3 fl High 05-25-2020 [facility] (59103) Comment: Performed By: #### CBCD1 ### # [facility] [address] [place], [place] [address] WBC (Bld) [#/Vol] 8.43 3.98-10.04 thou/cmm Normal 05-25-2020 [facility] (00 000) Comment: Performed By: #### CBCD1 ### # [facility] [address] [place], [place] [address] ed prov note on ED PROV NOTE HNO ID: [id number] Normal 05-25-20 [facility] Author: Johnnie Long MD Center ([id number]) Service: Emergency Medicine Author Type: Physician Type: [...] 05/26/20 0014 ED PROV NOTE HNO ID: [id number] Normal 05-25-20 [facility] Author: Johnnie Long MD [place] ([id number]) Service: Emergency Medicine Author Type: Physician Type: [...] back since night. Patient was seen at [facility] ED on Thursday night where sh shiva was given fluids, told her labs looked fine and was discharged home. P raheem follows with Dr. Winn for GI as she has a 9 cm cyst in her liver and history of pancreatitis. Patient is scheduled for endoscopy and ultrasound on Thursday. She states that Dr. Winn told her t o come to [facility] ED for specific type of imaging [...] v Family history: of suicide, attempts, or [place] 1 psychiatri c disorders requiring hospitalization v Precipitants/Stressors/Interpersonal: triggering events le ading to humiliation, shame or despair (e.g; loss of relationship, fi nancial or Health status-real or anticipated). Ongoing medical illness (zohreh. LAWN CARE SPECIALIST disorders, pain). Intoxication. Family turmoil/chaos. Histor y [...] Benign liver cyst 05/24/2010 CT scan at [facility] 11/2009 and 04/2010 showe 4 mm increase in size . No pain. No elevated LFTs on 03/11/2010. - Calculus of kidney 05/17/[address] Nicolas: Hospitalized age 20, and again later -- no procedures so far ([facility], [facility]) - Cancer (HCC) - Diverticulosis - [...] removed - TOTAL ABDOM HYSTERECTOMY 08/31/06 Hysterectomy, [facility] FAMILY HISTORY Problem Relation Age of [...] Approx. 3 cigarettes daily-1 pack every w [place] Substance and Sexual Activity - Alcohol use: [...] ed note on ED NOTE HNO ID: [id number] Normal 05-25-2020 [facility] Author: Katharine Gonzalez RN [place] ([id number]) Service: Emergency Medicine Author Type: Registered Nurse Type: ED Notes Filed: 05/25/2020 6:31 PM Note Text: RN unavailable for report at 1830 ED NOTE HNO ID: [id number] [place] 05-25-2020 [facility] Author: Katharine Gonzalez RN [place] ([id number]) Service: Emergency Medicine Author Type: Registered Nurse Type: ED Notes Filed: 05/25/2020 5:58 PM Note Text: Dr. Mukherjee notified pt asking for something for pain. ED NOTE HNO ID: [id number] [place] 05-25-2020 [facility] Author: Katharine Gonzalez RN [place] ([id number]) Service: Emergency Medicine Author Type: Registered Nurse Type: ED Notes Filed: 05/25/2020 4:00 PM Note Text: Covid swab obtained and sent. ED NOTE HNO ID: [id number] [place] 05-25-2020 [facility] Author: Katharine Gonzalez RN [place] ([id number]) Service: Emergency Medicine Author Type: Registered Nurse Type: ED Notes Filed: 05/25/2020 3:08 PM Note Text: Pt to CT by cart. ED NOTE HNO ID: [id number] [place] 05-25-2020 [facility] Author: Katharine Gonzalez RN [place] ([id number]) Service: Emergency Medicine Author Type: Registered Nurse Type: ED Notes Filed: 05/25/2020 11:55 AM Note Text: Pt complains of heat flash Temperature adjusted. Resp unla bored. ED NOTE HNO ID: [id number] Normal 05-25-2020 [facility] Author: Katharine Gonzalez RN Center ([id number]) Service: Emergency Medicine Author Type: Registered Nurse Type: ED Notes Filed: 05/25/2020 10:42 AM Note Text: Pt complains of itching after Dilaudid. No hives or SOB note d. Dr. Pierre notified and no orders received. Pt given ice. ED NOTE HNO ID: [id number] Normal 05-25-2020 [facility] Author: Katharine Gonzalez RN [place] ([id number]) Service: Emergency Medicine Author Type: Registered Nurse Type: ED Notes Filed: 05/25/2020 7:15 AM Note Text: Dr. Miranda notified pt needs SAFE-T form completed. ct abd/pel w ivcon on 2020-05-25 CT ABD/PEL W Final Report Normal 05-25-2020 [facility] IVCON DATE OF EXAM: May 25 2020 3:15PM [facility] 0530 - CT ABD/PEL W IVCON / ([id number]) PROCEDURE REASON: Nausea, vomiting Physician Interpretation EXAMINATION: [...] obe suggestive of small areas of atelectasis. Plate Take Out Worker (topogram) images: IMPRESSION: 1. No acute intra-abdominal/pelvic abnormalities are identif ied. 2. Bilateral nephrolithiasis. No hydronephrosis is identifie d. 3. Multiple hepatic cysts measuring up to 9.5 cm. 4. Findings consistent with fatty infiltration of liver. Trim Technician: [facility] Transcribe Date/Time: May 25 2020 3:16P Dictated by : ALICE ALCARAZ MD This examination was interpreted and the report reviewed and electronically signed by: ALICE ALCARAZ MD on May 25 2020 3:27PM EST comprehensive metabolic panel on 2020-05-25 Albumin [Mass/Vol] 4.8 3.9-4.9 g/dL Normal 05-25-2020 [facility] (74751) Comment: Performed By: #### CMP #### [facility] [address] [place] [address] ALP [Catalytic activity/Vol] 98 34-123 U/L Normal 0 05-25-2020 [facility] (00 000) Comment: Performed By: #### CMP #### [facility] [address] [place], [place] [address] ALT [Catalytic activity/Vol] 12 7-38 U/L Normal 0 05-25-2020 [facility] (00 000) Comment: Performed By: #### CMP #### [facility] [address] [place], [place] [address] Anion gap [Moles/Vol] 11 9-18 mmol/L Normal 05-25-20 [facility] (73826) Comment: Performed By: #### CMP #### [facility] [address] [place], [place] [address] AST [Catalytic activity/Vol] 14 13-35 U/L Normal 0 05-25-2020 [facility] (00 000) Comment: Performed By: #### CMP #### [facility] [address] [place], [place] [address] Bilirubin [Mass/Vol] 0.4 0.2-1.3 mg/dL Normal 0 [facility] (67199) Comment: Performed By: #### CMP #### [facility] [address] [place], [place] [address] Calcium [Mass/Vol] 9.7 8.5-10.2 mg/dL Normal 05-25-2020 [facility] (91724) Comment: Performed By: #### CMP #### [facility] [address] [place], [place] [address] Chloride [Moles/Vol] 104 97-105 mmol/L Normal 0 [facility] (81762) Comment: Performed By: #### CMP #### [facility] [address] [place], [place] [address] CO2 Blood 24 22-30 mmol/L Normal 05-25-2020 [facility] (44260) Comment: Performed By: #### CMP #### [facility] [address] [place], [place] [address] Creatinine [Mass/Vol] 0.95 0.58-0.96 mg/dL Normal 05-25-[address] [facility] (00 000) Comment: Performed By: #### CMP #### [facility] [address] [place], [place] [address] Glucose [Mass/Vol] 95 74-99 mg/dL Normal 05-25-2020 [facility] (74517) Comment: Result Comment: The [place] Diabetes Association (ADA) provides guidance for cutoff [...] Standards of Medical Care in Diabetes 2016; [place] [employer] Association. Diabetes Care. 2016;39(Suppl 1). Performed By: #### CMP #### [address] [address] Potassium [Moles/Vol] 3.6 3.7-5.1 mmol/L Low 05-25-20 [facility] (24267) Comment: Performed By: #### CMP #### [address] [address] Protein [Mass/Vol] 8.0 6.3-8.0 g/dL Normal 05-25-2020 [facility] (67003) Comment: Performed By: #### CMP #### [address] [address] Sodium [Moles/Vol] 139 136-144 mmol/L Normal 05-25-2020 [facility] (09179) Comment: Performed By: #### CMP #### [address] [address] Urea nitrogen [Mass/Vol] 11 7-21 mg/dL Normal 05-25 [facility] (93184) Comment: Performed By: #### CMP #### [address] [address] cnpn on 2020-05-25 CNPN Telephone (GSTNOR) Normal 05-25-2020 [place] SALLY Martinez ([id number]) 1980 [place] Date Time Provider Department (94397) 05/25/20 JOHNNY WINN GSTSHAYY During your visit [...] 05/25/20 progress on 2020-05 PROGRESS HNO ID: [id number] Normal 05-24-2020 [facility] Author: Johnny Winn [place] ([id number]) Service: ? Author Type: Physician Type: Progress [...] go to the ED. Patient went to [place] ED and mentions 'nothing was done. T [...] note she presented to the ED in [place] in January 2020 for a bdominal pain of [address] abdomen was essentially unremarkable i ncluding pancreas. Was found to have lipase of 193 on 02/15/2020. Amylase normal. Hepatic function panel. ? Has h/o cholecystectomy in 1998. PAST MEDICAL HISTORY Diagnosis Date - Allergic rhinitis, cause unspecified 05/17/2008 Spring and summer - Benign liver cyst 05/24/2010 CT scan at [facility] 11/2009 and 04/2010 showe 4 mm increase in size . No pain. No elevated LFTs on 03/11/2010. - Calculus of kidney 05/17/[address] Nicolas: Hospitalized age 20, and again later -- no procedures so far ([facility], [facility], 1995 [facility]) - Cancer (HCC) - Diverticulosis - [...] removed - TOTAL ABDOM HYSTERECTOMY 08/31/06 Hysterectomy, [facility] FAMILY HISTORY Problem Relation Age of [...] Approx. 3 cigarettes daily-1 pack every w [place] Substance Use Topics - Alcohol use: Yes [...] the ED yesterday - she went to [place] ED and was told that pancreas levels [...] for nausea. Advised to go to the [facility] ED if no improvement in s ymptoms. During this patient visit I have spent approximately 15 luna los in counseling regarding interpretation, education and coordinat ion of care. Johnny Winn MD 3:22 PM progress on 2020-05 PROGRESS HNO ID: [id number] Normal 05-23-2020 [facility] Author: Johnny Winn [place] ([id number]) Service: Gastroenterology Author Type: Physician Type: Progress [...] on 2020-05-18 CNPN Telephone (FAMPWS) Normal 05-18-2020 [place] Debra POPESALLY TORRES Jeana ([id number]) 1980 [place] Date Time Provider Department ([id number]) 05/18/20 MARCELINO MEJIA During your visit today, [...] [M25.519] Order(s):CONSULT TO ORTHOPAEDICS [9026] Order #: [id number] ty: 1 FUTURE Prescriptions as of 05/18/2020 [...] * * *Final Report* * * Normal [facility] AP/ZENOBIA AP/OTHR DATE OF EXAM: May 17 2020 12:16PM [place] ([id number]) RT WOX 5253 - XR SHLDR >/=3V AP/ZENOBIA AP/OTHR RT / [id number] PROCEDURE REASON: Acute pain of right shoulder [...] abnormalities identified i n the right shoulder. Trim Technician: PSCB Transcribe Date/Time: May 17 2020 12:18P Dictated by : KORI BLANKENSHIP MD This examination was interpreted and the report reviewed and electronically signed by: KORI BLANKENSHIP MD on May 17 2020 12:20PM EST [id number] progress on 2020-05 PROGRESS HNO ID: [id number] Normal 05-17-2020 [facility] Author: Kylee Hills (Rt) Vianey Davenport Lara ([id number]) Service: ? Author Type: Housekeeping Lead Type: Progress Notes Filed: 05/17/2020 12:17 PM [...] 17, 2020 12:08 PM PROGRESS HNO ID: [id number] Normal 05-17-2020 [facility] Author: Kenia (Fare Collector) Bartolo [place] ([id number]) Service: ? Author Type: Nurse Practitioner Type: Progress Notes Filed: 05/17/2020 12:45 PM Note Text: Visit Date: May 17, 2020 Patient Name: Ms.Nichole Jeana Vargas Date of : 1980 MRN/E #: [id number] Chief Complaint Patient presents with: right shoulder [...] Benign liver cyst 05/24/2010 CT scan at [facility] 11/2009 and 04/2010 showe 4 mm increase in size . No pain. No elevated LFTs on 03/11/2010. - Calculus of kidney 05/17/[address] Nicolas: Hospitalized age 20, and again later -- no procedures so far ([facility], [facility], 1995 [facility]) - Dysmenorrhea - History of blood [...] removed - TOTAL ABDOM HYSTERECTOMY 08/31/06 Hysterectomy, [facility] Social History Tobacco Use - Smoking status: Former Smoker Packs/day: 0.50 Years: 3.00 Pack years: 1.50 Types: Cigarettes Quit date: 01/12/2017 Years since quittin.3 - Smokeless tobacco: Never Used - Tobacco comment: Approx. 3 cigarettes daily-1 pack every w [place] Substance Use Topics - Alcohol use: Yes [...] plan with patient. Pt agreeable with above ksyler ga on 2020-05-17 CNOV Office Visit (UCWSTR) Normal 05-17-20 [place] SALLY Martinez ([id number]) 1980 [place] Date Time Provider Department ([id number]) 05/17/20 11:45 AM KENIA MCFARLAND (MANUELITO) UCWSTR During your visit today, we recorded the following informati on about you: Temperature Pulse Respiration Blood pressure 97.8 degrees 86/minute 16/minute 124/82 Weight 89.9 kg Kenia Mcfarland APRN.CNP 05/17/2020 12:45 PM Signed Visit Date: May 17, 2020 Patient Name: Ms.Nichole Jeana Vargas Date of : 1980 MRN/E #: [id number] Chief Complaint Patient presents with: right shoulder [...] Benign liver cyst 05/24/2010 CT scan at [facility] 11/2009 and 04/2010 showe 4 mm increase in size . No pain. No elevated LFTs on 03/11/2010. - Calculus of kidney 05/17/[address] Nicolas: Hospitalized age 20, a nd again later -- no procedures so far ([facility], most, 1995 [facility]) - Dysmenorrhea - History of blood [...] Approx. 3 cigarettes daily-1 pack every w [place] Substance Use Topics - Alcohol use: Yes [...] GENERAL 3V OR MORE AP/TRUE AP/OTHER RT [[id number]] Order #: [id number]. #:[id number] Prescriptions as of 05/17/2020 Sig: PANTOPRAZOLE 40 [...] on 05/17/20 No panel information on 2020-05-17 [facility] ([id number]) cnpn on 2020-05-11 CNPN Telephone (GSTNOR) Normal 05-11-2020 [place] [facility] SALLY VARGAS ([id number]) 1980 F [place] Date Time Provider Department (03541) 05/11/20 JOHNNY WINN GSTNOR During your visit today, we recorded the following informati on about you: Eleanor Anderson Pss 05/11/2020 3:44 PM Signed She is scheduled for egd/eus for You had aslo mentioned seeing a surgeon for liver cysts I need the consult in [facility] Thank you Shahla Allergies As of [...] on 2020-05-11 CNCO Letter Text Normal 05-11-2019 [facility] ([id number]) progress on 2020-04 PROGRESS HNO ID: [id number] Normal 05-10-2020 [facility] Author: Johnny Winn [place] ([id number]) Service: ? Author Type: Physician Type: Progress [...] pathology on 2020-05-08 SURGICAL Specimen originated from [facility] Normal 05-08-2020 [place] PATHOLOGY Specimen #: [id number] Clinic Submitting Physician: JOHNNY WINN MD [place] ([id number]) FINAL DIAGNOSIS 1. Random colon, biopsy (A) [...] in one cassette. Gross examination performed at [facility], [address] [place] [address] 05/08/2020 11:06:23 PM B. Received in formalin [...] in one cassette. Gross examination performed at [facility], [address] [place] [address] JT 05/08/2020 11:23:05 PM Date of Report: 05/11/2020 Date of Procedure: 05/08/2020 Date of Receipt: 05/08/2020 Submitted by: JOHNNY WINN MD Location: [facility] Diagnostic interpretation performed at [place] [address]. CLIA Number: [id number] pt ed on 2020-05-08 PT ED HNO ID: [id number] Normal 05-08-2020 [facility] Author: Penny Benedict RN [place] ([id number]) Service: ? Author Type: Registered Nurse Type: [...] history physical on 2020-05-08 HISTORY HNO ID: [id number] Normal 05-08-2020 [place] PHYSICAL Author: Johnny Winn [facility] Service: Gastroenterology [place] Author Type: Physician ([id number]) Type: HANDP Filed: 05/08/2020 12:46 PM Note [...] pre-op on 2019 ANES PRE-OP HNO ID: [id number] Normal 0 [facility] Author: Tania Castañeda [place] ([id number]) Service: ? Author Type: Nurse Edge Cutter Type: Anesthesia Preprocedure Evaluation Filed: 05/08/2020 12:36 [...] May 08, 2020 TIME: 12:26 PM CSN: [id number] anes postproc eval on 2020-05-08 ANES POSTPROC EVAL HNO ID: [id number] Normal [facility] Author: Tania Castañeda [place] ([id number]) Service: ? Author Type: Nurse Edge Cutter Type: Anesthesia Postprocedure Evaluation Filed: 05/08/2020 1:36 [...] May 08, 2020 TIME: 1:36 PM CSN: [id number] No panel information on 2020-05-08 Composer Teaching Artist [place] [facility] Gastrointestinal Endoscopy ([id number]) Patient Name: Sally Vargas Procedure Date: 05/08/2020 [...] - Patient has a contact number [facility] for emergencies. The signs and symptoms [...] Estimated Blood Loss: Estimated blood loss: none. Composer Teaching Artist [place] G[facility] Gastrointestinal Endoscopy ([id number]) Patient Name: Sally Vargas Procedure Date: 05/08/2020 [...] on 2020-05-07 CNPN Telephone (GSTNOR) Normal 05-07-2020 [place] [facility] SALLY VARGAS ([id number]) 1980 F [place] Date Time Provider Department (42034) 05/07/20 JOHNNY WINN GSTNOR During your visit [...] not draw the celiac panel. Pierce Schwartz MEMBER SERVICE SPECIALIST Allergies As of Date: 05/07/2020 Noted Allergy [...] mean Date Reviewed: 04/26/2020 Reviewed by: Johnny Wnin - Fully Assessed Reason for Visit: Patient [...] Status:Closed by PIERCE SCHWARTZ MA on 05/09/20 [facility] 2020-05-01 [facility] Telephone (GSTNOR) Normal 05-01-2020 [place] SALLY Martinez ([id number]) 1980 F [place] Date Time Provider Department ([id number]) 05/01/20 JOHNNY WINN GSTNOR During your visit [...] to contact patient for redraw Pierce Schwartz MEMBER SERVICE SPECIALIST Allergies As of Date: 05/01/2020 Noted Allergy [...] * * *Final Report* * * Normal [facility] - DATE OF EXAM: Apr 30 2020 4:13PM [place] ([id number]) U 1232 - US ABD SPLEEN -NB [...] cyst, enlarged compared to p rior study. Trim Technician: HERMINIO Transcribe Date/Time: Apr 30 2020 4:19P Dictated by : KORI BLANKENSHIP MD This examination was interpreted and the report reviewed and electronically signed by: KORI BLANKENSHIP MD on Apr 30 2020 4:27PM EST [id number] us abd right upper quadrant on 2020-04-30 US ABD RIGHT * * *Final Report* * * Normal 04-14 [facility] UPPER QUADRANT DATE OF EXAM: Apr 30 2020 4:13PM [place] ([id number]) WRU 1032 - US ABD RIGHT UPPER [...] cyst, enlarged compared to p rior study. Trim Technician: HERMINIO Transcribe Date/Time: Apr 30 2020 4:19P Dictated by : KORI BLANKENSHIP MD This examination was interpreted and the report reviewed and electronically signed by: KORI BLANKENSHIP MD on Apr 30 2020 4:27PM EST [id number] progress on 2020-04 PROGRESS HNO ID: [id number] Normal 04-30-2020 [facility] Author: Kathy Trevino (Tech) [facility] ([id number]) Service: ? Author Type: Housekeeping Lead Type: Progress Notes Filed: 04/30/2020 4:14 PM [...] IV DATA: Not applicable SIGNED BY: Vianey Raoms April 30, 2020 4:13 PM obsolete on 2020-04 OBSOLETE Refill (FAMPWS) Normal 04-30-2020 [facility] [place] [facility] SALLY VARGAS ([id number]) 1980 [facility] Date Time Provider Department (78102) 04/30/20 MARCELINO MEJIA During your visit today, [...] 04/30/20 igg subclasses+total on 2020-04-30 IgG [Mass/Vol] 8821 550-7485 mg/dL Normal 04-30-2020 [facility] (41236) Comment: Performed By: #### IGGSUB ## ##[facility] [place], [place] [id number]- [phone] IgG Subclass 1 757.6 382.4-928.6 mg/dL Normal 04-30-2020 [facility] (62216) Comment: Performed By: #### IGGSUB ## ##[facility] [place], [place] [id number]- [phone] IgG Subclass 2 398.2 241.8-700.3 mg/dL Normal 04-30-2020 [facility] (73856) Comment: Performed By: #### IGGSUB ## ##[facility] [place], [place] [id number]- [phone] IgG Subclass 3 42.7 21.8-176.1 mg/dL Normal 04-30-2020 [facility] (72631) Comment: Performed By: #### IGGSUB ## ##[facility] [address] [place], [place] [id number]- [phone] IgG Subclass 4 39.7 3.9-86.4 mg/dL Normal 04-30-2020 [facility] (53747) Comment: Performed By: #### IGGSUB ## ##[facility] [place], [place] [id number]- [phone] cnpn on 2020-04-30 CNPN Telephone (GSTNOR) Normal 04-30-2020 [place] [facility] SALLY VARGAS ([id number]) 1980 [facility] Date Time Provider Department ([id number]) 04/30/20 JOHNNY WINN GSTNOR During your visit [...] on 04/30/20 No panel information on 2020-04-30 [facility] ([id number]) cnpn on 2020-04-27 CNPN Telephone (FAMPWS) Normal 04-27-2020 [place] [facility] SALLY VARGAS ([id number]) 1980 [facility] Time Provider Department (75424) 04/27/20 [facility] During your visit today, we recorded the following informati on about you: Christopher Carcamo RN 04/27/2020 9:04 AM Signed Patient asking if pcp would send Rx for [place] to [place]. Reports she's had nausea for weeks. Saw [...] 04/27/20 progress on 2020-04 PROGRESS HNO ID: [id number] Normal 04-26-2020 [facility] Author: Johnny Winn [place] ([id number]) Service: ? Author Type: Physician Type: Progress [...] note she presented to the ED in [place] in January 2020 for a bdominal pain [...] Benign liver cyst 05/24/2010 CT scan at [facility] 11/2009 and 04/2010 showe 4 mm increase in size . No pain. No elevated LFTs on 03/11/2010. - Calculus of kidney 05/17/[address] Nicolas: Hospitalized age 20, and again later -- no procedures so far ([facility], [facility], 1995 [facility]) - Dysmenorrhea - History of blood [...] removed - TOTAL ABDOM HYSTERECTOMY 08/31/06 Hysterectomy, [facility] Allergies: ALLERGIES Allergen Reactions - Penicillins [...] Approx. 3 cigarettes daily-1 pack every w [place] Substance Use Topics - Alcohol use: Yes [...] CNOV Office Visit (GSTNOR) Normal 04-26-20 20 [place] [facility] SALLY VARGAS ([id number]) 1980 [facility] Date Time Provider Department ([id number]) 04/26/20 3:00 PM JOHNNY WINN GSTNOR During [...] note [facility] in January 2020 for abdominal [...] Benign liver cyst 05/24/2010 CT scan at [facility] 11/2009 and 04/2010 showe 4 mm increase in size . No pain. No elevated LFTs on 03/11/2010. - Calculus of kidney 05/17/[address] Nicolas: Hospitalized age 20, a nd again later -- no procedures so far ([facility], most, [facility]) - Dysmenorrhea - History of blood [...] removed - TOTAL ABDOM HYSTERECTOMY 08/31/06 Hysterectomy, [facility] Allergies: ALLERGIES Allergen Reactions - Penicillins [...] Approx. 3 cigarettes daily-1 pack every w [place] Substance Use Topics - Alcohol use: Yes [...] If you do not have a responsible special education bus driver (family member or friend) with you to take you home, your exam cannot be done with sedation and will be cancelled. Please bring a list of all of your [facility] nt medications, including any Over-the Counter medications [...] the prescription bowel preparation solution at your [facility] pharmacy or drugstore pharmacy. 08/2019 Bowel Preparation [...] or limit intake. Referring Provider: MARCELINO MEJIA [[id number]] Allergies As of Date: 04/26/2020 Noted Allergy [...] 1 BottleRfl : 0 INSERT IV ([place]) [7646060] Order #: [id number]: 1 FUTURE IV DISCONTINUE [3361928] Order #: [id number]: 1 FUTURE INSERT IV ([place]) [4150211] Order #: [id number]: 1 EGD [9448354] Order #: [id number] FUTURE COLONOSCOPY - DIAGNOSTIC [1007320] Order #: [id number] FUTUR E CELIAC DISEASE PANEL [7810132] Order #: [id number] FUTURE IGG SUBCLASSES BLD [SQIGGSUB] Order #: [id number] FUTURE US ABD RT UPPER QUADRANT [8243770] Order #: [id number] FUTUR E metroNIDAZOLE (FLAGYL) 500 mg tabletTake [...] AND PRE-OPERATIVE COVID [SQPOCOVD] Order #: [id number] FUTURE Prescriptions as of 04/26/2020 Sig: DIPHENHYDRAMINE [...] take a taxi or bus, or leave [facility] ALONE. If you do not have a responsible special education bus driver (famil y member or friend) with [...] the prescription bowel preparation solution at your [facility] pharmacy or drugstore pharmacy. 08/2019 Bowel [...] on 2020-04-26 CNCO Letter Text Normal 04-26-2020 [facility] ([id number]) cnpn on 2020-04-19 CNPN Telephone (FAMWS) Normal 04-19-2020 [place] [facility] SALLY VARGAS ([id number]) 1980 [facility] Date Time Provider Department ([id number]) 04/19/20 MARCELINO MEJIA FAMPWS During your visit today, we recorded the following informati on about you: Christopher Carcamo RN 04/19/2020 10:49 AM Signed Faxed GI referral and demographics to [facility] [place], per patient request. . Allergies As of Date: 04/19/2020 Noted Allergy Reaction PENICILLINS 12/07/2009 2 - Rash ASA (SALICYLATES) 01/27/2011 14 - Other: See Comments Comments: ulcers CONTRAST DYE (IODINE) 05/17/2008 12 - Shortness of Breath FLAGYL (METRONIDAZOLE HCL) 03/11/2010 12 - Shortness of [place] th IBUPROFEN 06/18/2016 8 - GI Upset PREDNISONE 06/18/2016 14 - Other: See Comments Comments: makes agitated and mean Date Reviewed: 02/23/2020 Reviewed by: Marcelino Mejia - Fully Assessed Reason for Visit: Faxed to [facility] [Other] Prescriptions as of 04/19/2020 [...] [R91.8] 01/22/2020 More... Encounter Status:Closed by Christopher CARACMO RN on 04/19/20 [facility] on 2020-04-18 [facility]) Normal 04-18-2020 [place] SALLY Martinez ([id number]) 1980 [place] Date Time Provider Department ([id number]) 04/18/20 [facility] During your visit today, we recorded the following informati on about you: Yvette Taylor RN 04/18/2020 2:01 PM Signed Pt called, verified by name and birthdate. Pt wants to know if she can see a GI doctor. Reviewed pt's chart and she has a GI con sult with GI group in [place]. Pt verbalized understanding, states she will call to agustin Taylor RN Allergies As of Date: 04/18/2020 Noted Allergy Reaction PENICILLINS 12/07/2009 2 - Rash ASA (SALICYLATES) 01/27/2011 14 - Other: See Comments Comments: ulcers CONTRAST DYE (IODINE) 05/17/2008 12 - Shortness of Breath FLAGYL (METRONIDAZOLE HCL) 03/11/2010 12 - Shortness of [place] IBUPROFEN 06/18/2016 8 - GI Upset PREDNISONE 06/18/2016 14 - Other: See Comments Comments: makes agitated and mean Date Reviewed: 02/23/2020 Reviewed by: Marcelino Mejia - Fully Assessed Reason for Visit: Patient Question [3007] Prescriptions as of 04/18/2020 Sig: TOPIRAMATE 50 [...] TAYLOR RN on 04/18/20 cnpn on 2020-04-16 [facility]) Normal 04-16-2020 [place] SALLY Martinez ([id number]) 1980 [place] Date Time Provider Department (77698) 04/16/20 [facility]OOSEVELTM[facility]INO SUAREZ During your visit today, we recorded the following informati on about you: Edwina Tatum DAVID 04/16/2020 11:38 AM Signed Pt calls to report she went to [facility] ER 04/12. Pt reports she went [...] review and advise. Edwina Dollllow DAVID Edwina Patillas LPN 04/17/2020 10:28 AM Signed Pt calls [...] (METRONIDAZOLE HCL) 03/11/2010 12 - Shortness of [place] IBUPROFEN 06/18/2016 8 - GI Upset [...] SANDERS MA on 04/17/20 cnpn on 2020-03-29 [facility] Normal 03-29-2020 [place] [facility] SALLY VARGAS ([id number]) 1980 [facility] Date Time Provider Department ([id number]) 03/29/20 MARCELINO MEJIA [facility] During your visit today, we recorded the following informati on about you: Melanie Swenson WATER QUALITY ANALYST 03/29/2020 10:06 AM Signed Patient calling crying constantly, so congested from a ll the crying, can not get appt with [facility] Neu[facility] will not take her insurance. [facility] will not take any new [...] AM Signed 1. Can we confirm that [facility] at [facility] doesn't take her insurance. If they don't take her insurance then we ca n see if can get her in with Dr. Church since he is back in [facility] now. 2. Find out how long she [...] Signed Patient returned call; crying. Message from [place] ider given. Patient says they don't do [...] she can't take ibuprof en). TC to [facility] and had to leave message for them to return call regarding if they accept patient's insurance. Instructed the m to give patient's name when they return the call so we can document. Lorenzo Vu 03/29/2020 12:49 PM Signed Giulia / [facility] returned call stating the y do not take [place]; provider is not credentialed with them yet. [...] muscle relaxer for her migraines. Pharmacy [place]. Please review and advise. LUCIUS Solis MD [...] on 2020-03-28 CNPN Telephone (RAMA) Normal 03-28-2020 [place] [facility] SALLY VARGAS ([id number]) 1980 [facility] Date Time Provider Department ([id number]) 03/28/20 [facility] During your visit today, we recorded [...] on 2020-03 OBSOLETE Refill (FAMPWS) Normal 03-27-2020 [facility] [place] [facility] SALLY VARGAS ([id number]) 1980 [facility] Time Provider Department (90281) 03/27/20 MARCELINO MEJIAWS During your visit today, [...] on 2020-03-27 CNPN Telephone (FAMWS) Normal 03-27-2020 [facility] SALLY VARGAS ([id number]) 1980 [facility] Date Time Provider Department ([id number]) 03/27/20 MARCELINO MEJIA [facility] During your visit today, we recorded the following informati on about you: Yvette Taylor RN 03/27/2020 10:59 AM Signed Pt called, verified by name and birthdate. Pt states s he went to [facility] ER last night for a migraine and had a CT scan. Pt wants PCP to review ER records. Pt wants referral to neurology. Order pended. When signed pleas e fax to [facility] at [facility] per pt request Yvette Murphy Ma 03/27/2020 12:20 PM Signed ER reports on PCP's desk to review. Jessica Zhou, RN, RN 03/27/2020 1:37 PM Signed Pt calls, asking what the diagnosis was on the ER note. Pt states she was told air bubble, tumor States Imitrex is not working. Has already taken 2 today. Wa iting on [facility] to call her back Pt asking [...] referral placed and can be faxed to [facility]. Let patient know th e CT [...] referred to. See needs to contact her childcare attendant to get the help see paulette dick as instructed on 03/22/2020, otherwise our hands are tied. Jessica Murphy Ma 03/27/2020 2:29 PM Signed Pt notified and voiced understanding. Referral and Dem o faxed to [facility]. Jessica Murphy Ma Allergies As of Date: 03/27/2020 Noted Allergy Reaction PENICILLINS 12/07/2009 2 - Rash ASA (SALICYLATES) 01/27/2011 14 - Other: See Comments Comments: ulcers CONTRAST DYE (IODINE) 05/17/2008 12 - Shortness of Breath FLAGYL (METRONIDAZOLE HCL) 03/11/2010 12 - Shortness of [place] th IBUPROFEN 06/18/2016 8 - GI Upset PREDNISONE 06/18/2016 14 - Other: See Comments Comments: makes agitated and mean Date Reviewed: 02/23/2020 Reviewed by: Marcelino Mejia - Fully Assessed Reason for Visit: Patient Update [1234] Primary Visit Diagnosis:Migraine without aura an d without status migrainosus, not intractable [G43.009] Order(s):CONSULT TO NEUROLOGY [9035] Order #: [id number]: 1 FUTURE Prescriptions as of 03/27/2020 Sig: [...] 03/27/20 progress on 2020-03 PROGRESS HNO ID: [id number] Normal 03-22-2020 [facility] Author: Isabel (Maya) Hugo Lara ([id number]) Service: ? Author Type: Physician Nurses' Registry Director Type: Progress Notes Filed: 03/22/2020 9:50 [...] to rides. States she couldn't go to [place] for her cardiac testing but continues to have pre syncopal episodes. Has not been able to go see card iologist either. She is specifically asking about going on disability as well . HISTORY REVIEWED (electronic chart updated): - medical history - medications - allergies REVIEW OF SYSTEMS: As noted in HPI PHYSICAL EXAMINATION: [facility] 08/10/2006 Any vital signs collected [...] with specialists. contacted and will provider her [facility] recommendations for ride assistance. ISABEL ARIAS PA-C Total appointment time on phone with patient = 11-20 minutes morena on 2020-03-22 CNPN Telephone (FAMPWS) Normal 03-22-2020 [facility] SALLY VARGAS ([id number]) 1980 [facility] Date Time Provider Department ([id number]) 03/22/20 [facility]EL ARIAS) [facility] During your visit today, we recorded the following informati on about you: ISABEL ARIAS PA-C 03/22/2020 9:43 AM Signed Please let patient know that this is info I have received from in regards to rides: The last I knew, most of them were back up and running. I do know that [facility] [employer] has been continuing with their ride assistance and are taking people to their appts. I would sa y they need to check now with insurance to see if able to set up ride. The patient could also see if they can request a childcare attendant through their Medicaid Managed Care p maria esther. I have patients that have Medicaid plan and their care managers a re able to assist them setting up services. Having a childcare attendant through insu eve is great because they [...] has a care ma nagelizabeth through medicaid [place] but she only calls her about once a year. She states she will have to make the MRI and CT appt n ext month when she has rides again. I advised her that she contact [place] and request more help from her childcare attendant. Allergies As of Date: 03/22/2020 Noted Allergy [...] ISABEL WARE on 03/22/20 cnpn on 2020-03-08 [facility]) Normal 03-08-2020 [facility] ABDIFATAHSALLY TORRES ([id number]) 1980 [facility] Date Time Provider Department ([id number]) 03/08/20 MARCELINO MEJIA During your visit today, [...] transfer to scheduling and while waiting for environmental services worker which was awhile, pt dropped call. [...] (METRONIDAZOLE HCL) 03/11/2010 12 - Shortness of [place] th IBUPROFEN 06/18/2016 8 - GI Upset [...] Status:Closed by BRANDEN SANDERS MA on 03/09/20 [facility] on 2020-03-05 [facility] Normal 03-05-2020 [facility] SALLY VARGAS ([id number]) 1980 [facility] Date Time Provider Department ([id number]) 03/05/20 [facility] During your visit today, we recorded the following informati on about you: Melanie Swenson WATER QUALITY ANALYST 03/05/2020 2:16 PM Signed Patient calling would like environmental services worker to call her back to set [...] stated she has Dr. Cueto for her analysis specialist.did not want to go to [place] for [place] [facility] Stress. vic stated she is to see Dr. Joseph here in [place] for Pain Management. Verified that we have [facility] and MRI schedul ed here on [...] on 03/06/20 CNPN Telephone (FAMPWS) Normal 03-05-2020 [place] SALLY Martinez ([id number]) 1980 [place] Date Time Provider Department ([id number]) 03/05/20 MARCELINO MEJIA During your visit today, we recorded the following informati on about you: Sallie Benitez WATER QUALITY ANALYST 03/05/2020 1:58 PM Signed Patient is scheduling [...] to call the office. Sarai Diegoh Debby WATER QUALITY ANALYST 03/05/2020 3:51 PM Signed Patient returned call [...] (METRONIDAZOLE HCL) 03/11/2010 12 - Shortness of [place] th IBUPROFEN 06/18/2016 8 - GI Upset [...] on 2020-02-28 CNPN Telephone (FAMPWS) Normal 02-28-2020 [place] SALLY Martinez ([id number]) 1980 [place] Date Time Provider Department ([id number]) 02/28/20 MARCELINO MEJIA During your visit today, we recorded the following informati on about you: Janneth Zhou, RN, RN 02/28/2020 10:41 AM Signed Pt calls for ER F/U appt. States she was at [facility] ER on 02/24 after reportidly passing [...] (METRONIDAZOLE HCL) 03/11/2010 12 - Shortness of [place] th IBUPROFEN 06/18/2016 8 - GI Upset [...] XR CHEST 1 VIEW ORIGINAL Normal 02-25-[address] [facility] XR CHEST [facility] ([id number] CLINICAL STATEMENT: Chest pain COMPARISON: 04/06/2006 FINDINGS: [...] Troponin I.cardiac <0.020 0.000-0.040 ng/mL Normal 0 [facility] [Mass/Vol] [facility] (79027) Comment: Result Comment: Troponin I r eference range: 0.00-0.040 ng/mL Negative an d non-diagnostic. >0.040 ng/mL Consistent with cardiac damage, increased clinical risk and possibility of myocardial in farction. Serial measurements, a rise & fall in test results, clinical histo ry, appropriate symptoms and/or ECG changes may help assess possibility of [place]. *Other non-acute coronary sy ndrome conditions such as CHF, myoc arditis, pulmonary emboli, sepsis and cardiac surgery could result in myoc ardial damage and increased troponi n levels. Performed By: #### CBC, ADIF F, ANEU, BMP, GFR #### [address] [address] mg on 2020-02-25 Magnesium [Mass/Vol] 2.0 1.8-2.4 mg/dL Normal 0 [facility] ([place]) (0000 0) Comment: Performed By: #### CBC, ADIF F, ANEU, BMP, GFR #### [address] [address] lip on 2020-02-25 Lipase Level 562 73-393 U/L High 02-25-2020 [facility] ([place]) (12094) Comment: Performed By: #### CBC, ADIF F, ANEU, BMP, GFR #### [address] [address] cmp on 2020-02-25 Albumin [Mass/Vol] 4.1 3.5-5.0 G/dL Normal 02-25-2020 [facility] ([place]) (43573) Comment: Performed By: #### CBC, ADIF F, ANEU, BMP, GFR #### [address] [address] Albumin/Globulin [Mass 1.2 1.1-2.5 ratio Normal 020 [facility]) (54734) Comment: Performed By: #### CBC, ADIF F, ANEU, BMP, GFR #### [address] [address] ALP [Catalytic activity/Vol] 98 40-135 U/L Normal 0 02-25-2020 [facility] ([place]) (0000 0) Comment: Performed By: #### CBC, ADIF F, ANEU, BMP, GFR #### [place] [id number] ALT [Catalytic activity/Vol] 30 10-35 U/L Normal 0 02-25-2020 [facility] ([place]) (0000 0) Comment: Performed By: #### CBC, ADIF F, ANEU, BMP, GFR #### [place] [id number] AST [Catalytic activity/Vol] 15 10-40 U/L Normal 0 02-25-2020 [facility] ([place]) (0000 0) Comment: Performed By: #### CBC, ADIF F, ANEU, BMP, GFR #### [address] [address] Bili Total 0.4 0.2-1.0 mg/dL Normal 02-25-2020 [facility]) (15591) Comment: Result Comment: Use of this assay is not recommended for patients undergoing treatment with eltrombopag d ue to the potential for falsely elevated results. Performed By: #### CBC, ADIF F, ANEU, BMP, GFR #### [place] [id number] Calcium [Mass/Vol] 8.9 8.4-10.2 mg/dL Normal 02-25-2020 [facility] ([place]) (0000 0) Comment: Performed By: #### CBC, ADIF F, ANEU, BMP, GFR #### [address] [address] Chloride [Moles/Vol] 104 98-107 mmol/L Normal 0 [facility] ([place]) (0000 0) Comment: Performed By: #### CBC, ADIF F, ANEU, BMP, GFR #### [address] [address] CO2 [Moles/Vol] 28 22-29 mmol/L Normal 02-25-2020 [facility] ([place]) (43272) Comment: Performed By: #### CBC, ADIF F, ANEU, BMP, GFR #### [address] [address] Creatinine [Mass/Vol] 1.01 0.55-1.02 mg/dL Normal 02-25-20 [facility] ([place]) (08109) Comment: Performed By: #### CBC, ADIF F, ANEU, BMP, GFR #### [address] [address] Electrolyte Balance 9.0 mEq/L Normal 02-25-2020 [facility] ([place]) (86333) Comment: Performed By: #### CBC, ADIF F, ANEU, BMP, GFR #### [address] [address] Globulin (S) [Mass/Vol] 3.4 G/dL Normal 2019 [facility] ([place]) (48311) Comment: Performed By: #### CBC, ADIF F, ANEU, BMP, GFR #### [address] [address] Glucose [Mass/Vol] 112 70-105 mg/dL High 02-25-2020 [facility] ([place]) (39934) Comment: Performed By: #### CBC, ADIF F, ANEU, BMP, GFR #### [address] [address] Potassium [Moles/Vol] 3.7 3.5-5.1 mmol/L Normal 02-25-20 [facility] ([place]) (0000 0) Comment: Performed By: #### CBC, ADIF F, ANEU, BMP, GFR #### [address] [address] Protein [Mass/Vol] 7.5 6.4-8.2 G/dL Normal 02-25-2020 [facility] ([place]) (91321) Comment: Performed By: #### CBC, ADIF F, ANEU, BMP, GFR #### [address] [address] Sodium [Moles/Vol] 141 136-145 mmol/L Normal 02-25-2020 [facility] ([place]) (0000 0) Comment: Performed By: #### CBC, ADIF F, ANEU, BMP, GFR #### [place] [id number] Urea nitrogen [Mass/Vol] 21 7-18 mg/dL High 02-24 [facility] ([place]) (76132) Comment: Performed By: #### CBC, ADIF F, ANEU, BMP, GFR #### [place] [id number] Urea nitrogen/Creatinine [Mass 21 7-27 ratio Normal 02-25-2020 [facility]] [facility] ([place]) (30822) Comment: Performed By: #### CBC, ADIF F, ANEU, BMP, GFR #### [address] [address] cbc on 2020-02-25 Erythrocyte distribution 14.9 11.5-14.5 % High 02-24 [facility] width (RBC) [Ratio] ([place]) (56948) Comment: Performed By: #### CBC, ADIF F, ANEU, BMP, GFR #### [address] [address] Hematocrit (Bld) [Volume 35.9 37.0-47.0 % Low 02-24 [facility] fraction] ([place]) (0000 0) Comment: Performed By: #### CBC, ADIF F, ANEU, BMP, GFR #### [place] [id number] Hemoglobin (Bld) 11.8 12.0-16.0 G/dL Low 02-25-2020 [facility] [Mass/Vol] ([place]) (000 00) Comment: Performed By: #### CBC, ADIF F, ANEU, BMP, GFR #### [address] [address] MCH (RBC) [Entitic mass] 29.5 27.0-31.2 pg Normal 02-24 [facility] ([place]) (0000 0) Comment: Performed By: #### CBC, ADIF F, ANEU, BMP, GFR #### [address] [address] MCHC (RBC) [Mass/Vol] 32.9 33.0-37.0 G/dL Low 02-25-20 20 [facility] ([place]) (0000 0) Comment: Performed By: #### CBC, ADIF F, ANEU, BMP, GFR #### [address] [address] MCV (RBC) [Entitic vol] 89.9 80.0-94.0 fL Normal 2019 [facility] ([place]) (0000 0) Comment: Performed By: #### CBC, ADIF F, ANEU, BMP, GFR #### [place] [id number] Platelet mean volume 9.2 7.4-10.4 fL Normal 0 [facility] (Bld) [Entitic vol] ([place]) (07526) Comment: Performed By: #### CBC, ADIF F, ANEU, BMP, GFR #### [address] [address] Platelets (Bld) [#/Vol] 265 130-400 10 3/mcL Normal 2019 [facility] ([place]) (39280) Comment: Performed By: #### CBC, ADIF F, ANEU, BMP, GFR #### [address] [address] RBC (Bld) [#/Vol] 4.00 4.20-5.40 10 6/mcL Low 02-25-2020 [facility] ([place]) (0000 0) Comment: Performed By: #### CBC, ADIF F, ANEU, BMP, GFR #### [address] [address] WBC (Bld) [#/Vol] 9.90 4.60-10.80 10 3/mcL Normal 02-25-2020 [facility] ([place]) (81205) Comment: Performed By: #### CBC, ADIF F, ANEU, BMP, GFR #### [address] [address] .neuabs on Neutrophils (Bld) 6.00 2.85-6.16 10 3/mcL Normal 02-25-2020 [facility] [#/Vol] [facility] ([place]) (03209) Comment: Performed By: #### CBC, ADIF F, ANEU, BMP, GFR #### [address] [address] .gfr on 2020-02-25 GFR Non- 61 ml/min/1.73sqm Normal 02-25-2020 [facility] ([place]) (15533) Comment: Result Comment: GFR Population mean for Afri can [place]ian, Non- Americans Ages 20-29 = 116 mL/min/1.73 [...] CBC, ADIF F, ANEU, BMP, GFR #### [address] [address] GFR 74 ml/min/1.73sqm Normal 02-12 [facility] ([place]) (0000 0) Comment: Result Comment: GFR Population mean for Afri can [place]ian, Non- Americans Ages 20-29 = 116 mL/min/1.73 [...] CBC, ADIF F, ANEU, BMP, GFR #### [address] [address] .auto diff on 02-24 Ammonia (P) [Mass/Vol] 0.60 0.15-1.00 10 3/mcL Normal 02-24- 020 [facility] ([place]) (93136) Comment: Performed By: #### CBC, ADIF F, ANEU, BMP, GFR #### [address] [address] Basophils (Bld) 0.00 0.00-0.19 10 3/mcL Normal 02-25-[address] [facility] [#/Vol] [facility] ([place]) (57322) Comment: Performed By: #### CBC, ADIF F, ANEU, BMP, GFR #### [address] [address] Basophils/100 WBC (Bld) 0.2 0.0-2.5 % Normal 2019 [facility] ([place]) (0000 0) Comment: Performed By: #### CBC, ADIF F, ANEU, BMP, GFR #### [address] [address] Eosinophils (Bld) 0.30 0.00-0.40 10 3/[facility] Normal 02-25-2020 [facility] [#/Vol] [facility] ([place]) (90076) Comment: Performed By: #### CBC, ADIF F, ANEU, BMP, GFR #### [address] [address] Eosinophils/100 WBC (Bld) 3.5 0.0-7.0 % Normal 02-12 [facility] ([place]) (0000 0) Comment: Performed By: #### CBC, ADIF F, ANEU, BMP, GFR #### [address] [address] Lymphocytes (Bld) 2.90 0.77-3.85 10 3/mcL Normal 02-25-2020 [facility] [#/Vol] [facility] ([place]) (33081) Comment: Performed By: #### CBC, ADIF F, ANEU, BMP, GFR #### [facility] [address] [place] [address] Lymphocytes/100 WBC (Bld) 28.9 10.0-50.0 % Normal 02-12 [facility] ([place]) (78744) Comment: Performed By: #### CBC, ADIF F, ANEU, BMP, GFR #### [place] [address] [place] [address] Monocytes/100 WBC (Bld) 6.3 1.7-13.0 % Normal 2019 [facility] ([place]) (0000 0) Comment: Performed By: #### CBC, ADIF F, ANEU, BMP, GFR #### [place] [address] [place] [address] Neutrophils/100 WBC (Bld) 61.1 37.0-80.0 % Normal 02-12 [facility] ([place]) (04842) Comment: Performed By: #### CBC, ADIF F, ANEU, BMP, GFR #### [place] [address] [place] [address] progress on 2020-02 PROGRESS HNO ID: [id number] Normal 02-23-2020 [facility] Author: Marcelino Mejia [place] ([id number]) Service: ? Author Type: Physician Type: Progress Notes Filed: 02/23/2020 12:21 PM Note Text: This Team Access Model visit is a phone encounter. It requir ed patient-provider interaction for the medical decision making as documented below. The patient is identified by name and birthday. Patient loca tion: [place] The patient is aware that I am [...] Phone time: 5 min cnpn on 2020-02-20 [facility] (FAMP[facility]) Normal 02-20-2020 [facility] SALLY VARGAS ([id number]) 1980 [facility] Date Time Provider Department ([id number]) 02/20/20 MARCELINO MEJIA During your visit today, we recorded the following informati on about you: Lexy Tapia RN 02/20/2020 8:40 AM Signed fyi- Patient calls to report to PCP that she was back in [facility] ER over weekend due to pain from Pancreatitis. Her level was 800, so they s ent me home. States she received Oxycodone and report s that it is not doing much to relieve her pain and wanted PCP aware that she was in ER again. Patient did not have phone number of [facility] to schedule f ollow up. This [...] Encounter Status:Closed by MARCELINO MEJIA on 02/20/20 [facility] ([facility]) Normal 02-20-2020 [place] SALLY Martinez ([id number]) 1980 [place] Date Time Provider Department ([id number]) 02/20/20 MARCELINO MEJIAPWS During your visit today, we recorded the following informati on about you: Melanie Swenson DAVID 02/20/2020 2:25 PM Signed Patient calling wants note sent to PCP, she is currently i n [facility] ER. Patient said she has been sitting there for about 20 minutes now. Marcelino Mejia MD 02/20/2020 2:35 PM Signed Noted. Allergies As of Date: 02/20/2020 Noted Allergy Reaction PENICILLINS 12/07/2009 2 - Rash ASA (SALICYLATES) 01/27/2011 14 - Other: See Comments Comments: ulcers CONTRAST DYE (IODINE) 05/17/2008 12 - Shortness of Breath FLAGYL (METRONIDAZOLE HCL) 03/11/2010 12 - Shortness of [place] th IBUPROFEN 06/18/2016 8 - GI Upset [...] Encounter Status:Closed by MARCELINO MEJIA on 02/20/20 [facility] Telephone (FAMPWS) Normal 02-20-2020 [facility] SALLY VARGAS ([id number]) 1980 [facility] Date Time Provider Department ([id number]) 02/20/20 MARCELINO MEJIA During your visit today, we recorded the following informati on about you: Christopher Carcamo RN 02/20/2020 9:48 AM Signed Patient phoned crying and distraught, stating [facility], can not get her in until March. States she cannot take this pain anymore, her insurance will not cover anyone in [facility] When she was in the hospital morphine [...] pain right now, she is upset because [facility] cannot see her until March. Asking if there is anything pcp can do to get her in sooner? Ple ase phone patient with reply. Marcelino Mejia MD 02/20/2020 10:15 AM Signed Let patient know the only op tions ar for her to go to [facility] ER to see if will be admitted and get Gastro eval there where they have it or I can put in a general referral for the system but that could be anywhere in the system including main campus. Edwina Tatum LPN 02/20/2020 10:43 AM Signed Pt calls back and is very upset because she said she has no one to take her to [employer]. She said when she goes to [facility] the y just drug her up [...] Crying. She cannot get transport ation to [facility]. Insurance does not cover [facility] and do es not want to go back to [place] because they will just send h er home with meds and dope me up for 3-4 days. Johnathon SOTELO cannot get her an appointment until March . Will route to clerical gastro for schedu ling within [facility] - possibly [facility]. Marcelino Mejia MD 02/20/2020 12:34 PM Signed noted Augustina Vera, LUCIUS STAFF TRAINER.MANUELITO 02/20/2020 12:40 PM Signed I'd suggest that she go to [facility] today. it w ould not be [...] she has no way of getting to [facility]. Pt states she does not th ink they take her insurance either. Spoke with PCP who suggested [facility]. Relayed message to pt, pt started [...] illness. Asking letter to be faxed to [phone]. Marcelino Mejia MD 02/20/2020 2:38 PM Signed Let patient know ER report from 02/18/2020 was reviewed and th e ER Physician wanted to keep but she preferred to go home and see if she c ould manage it there. Lorenzo Thomascecilia 02/20/2020 4:06 PM Signed Patient returned call, stating she went to [facility] ER today an d they discharged her because her level is less than 800. Reques ting something for pain, that Percocet helped some in past. No transportation to go anywhe re but [place] (?social psychologist to help with transportat ion). Does not [...] doctor. In regards to her letter for [employer] what I [...] is what is going to be written. Edwian Mejia MD 02/20/2020 5:21 PM Signed Letter ready to be faxed to [phone]. Branden Sanders Ma 02/21/2020 8:24 AM Signed Faxed letter Branden Sanders Ma Allergies As of Date: 02/20/2020 Noted Allergy Reaction PENICILLINS 12/07/2009 2 - Rash ASA (SALICYLATES) 01/27/2011 14 - Other: See Comments Comments: ulcers CONTRAST DYE (IODINE) 05/17/2008 12 - Shortness of Breath FLAGYL (METRONIDAZOLE HCL) 03/11/2010 12 - Shortness of [place] IBUPROFEN 06/18/2016 8 - GI Upset [...] on 2020-02-16 CNPN Telephone (UCWSTR) Normal 02-16-2020 [facility] [facility] SALLY VARGAS ([id number]) 1980 [facility] Date Time Provider Department ([id number]) 02/16/20 JESSICA JESUS) [facility] During your visit today, we recorded the [...] (METRONIDAZOLE HCL) 03/11/2010 12 - Shortness of [place] IBUPROFEN 06/18/2016 8 - GI Upset [...] on 02/16/20 CNPN Telephone (FAMPWS) Normal 02-16-2020 [facility] [facility] SALLY VARGAS ([id number]) 1980 [facility] Date Time Provider Department ([id number]) 02/16/20 ISABEL ARIAS) [facility] During your visit today, we recorded [...] 02/16/20 progress on 2020-02 PROGRESS HNO ID: [id number] Normal 02-15-2020 [facility] Author: Marcelino Mejia [place] ([id number]) Service: ? Author Type: Physician Type: Progress [...] at today?s visit. Patient was sen in [facility] ER on 02/01/2020 with C/O epigastric [...] nosis) - CONSULT TO GASTROENTEROLOGY: [facility] in [place] - Cont prn phenergan. 2. Tongue ulcer [...] 02-15-2020 [facility] activity/Vol] [place] and ([id number]) Comment: Performed By: #### LIPA, CMP , CBCDIF, AMYL #### [facility] [address] [place], [place] [address] comp metabolic panel on 2020-02-15 Albumin [Mass/Vol] 4.6 3.9-4.9 g/dL Normal 02-15-2020 [facility] (61592) Comment: Performed By: #### LIPA, CMP , CBCDIF, AMYL #### [facility] [address] [place], [place] [address] ALP [Catalytic activity/Vol] 90 34-123 U/L Normal 0 02-15-2020 [facility] ([id number]) Comment: Performed By: #### LIPA, CMP , CBCDIF, AMYL #### [facility] [address] [place], [place] [address] ALT [Catalytic activity/Vol] 6 7-38 U/L Low 0 02-15-2020 [facility] (72036) Comment: Performed By: #### LIPA, CMP , CBCDIF, AMYL #### [place] [id number] Anion gap [Moles/Vol] 13 9-18 mmol/L Normal 02-15-20 20 [facility] (41274) Comment: Performed By: #### LIPA, CMP , CBCDIF, AMYL #### [address] [address] AST [Catalytic activity/Vol] 20 13-35 U/L Normal 0 02-15-2020 [facility] (08065) Comment: Performed By: #### LIPA, CMP , CBCDIF, AMYL #### [address] [address] Bilirubin [Mass/Vol] 0.2 0.2-1.3 mg/dL Normal 0 [facility] (50824) Comment: Performed By: #### LIPA, CMP , CBCDIF, AMYL #### [address] [address] Calcium [Mass/Vol] 10.2 8.5-10.2 mg/dL Normal 02-15-2020 [facility] (28956) Comment: Performed By: #### LIPA, CMP , CBCDIF, AMYL #### [address] [address] Chloride [Moles/Vol] 100 97-105 mmol/L Normal 0 [facility] (90712) Comment: Performed By: #### LIPA, CMP , CBCDIF, AMYL #### [facility] [address] [place], [place] [address] CO2 [Moles/Vol] 26 22-30 mmol/L Normal 02-15-2020 [facility] (98977) Comment: Performed By: #### LIPA, CMP , CBCDIF, AMYL #### [facility] s [address] [place], [place] [address] Creatinine [Mass/Vol] 0.92 0.58-0.96 mg/dL Normal 02-15-20 20 [facility] (88915) Comment: Performed By: #### LIPA, CMP , CBCDIF, AMYL #### [facility] [address] [place] [address] eGFR- Amer. >60 Normal 02-15-2020 [facility] (74982) Comment: Performed By: #### LIPA, CMP , CBCDIF, AMYL #### [facility] [address] [place] [address] GFR/1.73 sq M predicted >60 mL/min/{1.73_m2} Normal 02-15-2020 [facility] among non-blacks [facility] (59044) (S/P/Bld) [Vol rate/Area] Comment: Result Comment: eGFR [...] #### LIPA, CMP , CBCDIF, AMYL #### [facility] s [address] [place] [id number] Glucose [Mass/Vol] 89 74-99 mg/dL Normal 02-15-2020 [facility] (65399) Comment: Result Comment: The [place] Diabetes Association (ADA) provides guidance for cutoff [...] for diagnosis of diabetes. Reference: Standards of [facility] Care in Diabetes 2016, [place] [employer] Association. Diabetes Care. 2016.39(Suppl 1). Performed By: #### LIPA, CMP , CBCDIF, AMYL #### [facility] [address] [place], [place] [address] Potassium [Moles/Vol] 3.7 3.7-5.1 mmol/L Normal 02-15-20 [facility] (04903) Comment: Performed By: #### LIPA, CMP , CBCDIF, AMYL #### [facility] [address] [place], [place] [address] Protein [Mass/Vol] 7.8 6.3-8.0 g/dL Normal 02-15-2020 [facility] (56075) Comment: Performed By: #### LIPA, CMP , CBCDIF, AMYL #### [facility] [address] [place], [place] [address] Sodium [Moles/Vol] 139 136-144 mmol/L Normal 02-15-2020 [facility] (00375) Comment: Performed By: #### LIPA, CMP , CBCDIF, AMYL #### [facility] Laborator [facility] [address] [place], [place] [address] Urea nitrogen [Mass/Vol] 9 7-21 mg/dL Normal 02-14 [facility] (04866) Comment: Performed By: #### LIPA, CMP , CBCDIF, AMYL #### [facility] [address] [place], [place] [address] cnov on 2020-02-15 CNOV Office Visit (FAMPWS) Normal 02-15-[address] [place] [address] Debra SALLY VARGAS ([id number]) 1980 [facility] Date Time Provider Department (04011) 02/15/20 2:20 PM [facility] During your visit today, we recorded [...] at today?s visit. Patient was sen in [facility] ER on 02/01/2020 with C/O epigastric [...] diagnosis) - CONSULT TO GASTROENTEROLOGY: [facility] in [place] - Cont prn phenergan. 2. Tongue ulcer [...] for Visit: Transition Of Care [4074] Cmt: [facility] pancreatitis Reason For Visit History Recorded Primary Visit Diagnosis:Acute pancreatitis without infection or necrosis, unspecified pancreatitis type [K85.90] Other Visit Diagnoses:Tongue ulcer [K14.0] Poor dentition [K08.9] Thrush [B37.0] Order(s):CONSULT TO GASTROENTEROLOGY [2012] Order #: [id number]: 1 FUTURE triamcinolone (KENALOG IN ORABASE) 0.1 [...] Abs Baso 0.07 <0.11 k/uL Normal 02-15-2020 [facility] (24561) Comment: Performed By: #### LIPA, CMP , CBCDIF, AMYL ####[place] [address] [place] [phone] Abs [place] 0.53 <0.87 k/uL Normal 02-15-2020 [facility] (58491) Comment: Performed By: #### LIPA, CMP , CBCDIF, AMYL ####[facility] [place] [phone] Abs Neut 6.05 1.45-7.50 k/uL Normal 02-15-2020 [facility] (88973) Comment: Performed By: #### LIPA, CMP , CBCDIF, AMYL ####[facility] [place] [phone] Absolute nRBC <0.01 <0.01 Normal 02-15-2020 [facility] (54464) Comment: Performed By: #### LIPA, CMP , CBCDIF, AMYL ####[facility] [place] [phone] Basophils/100 WBC (Bld) 0.7 % Normal 2019 [facility] (21932) Comment: Performed By: #### LIPA, CMP , CBCDIF, AMYL ####[facility] [place] [phone] DTYPE Auto Diff Normal 02-15-2020 [facility] (29873) Comment: Performed By: #### LIPA, CMP , CBCDIF, AMYL ####[facility] [address] [place] [phone] Eosinophils (Bld) [#/Vol] 0.38 <0.46 k/uL Normal - [facility] (76734) Comment: Performed By: #### LIPA, CMP , CBCDIF, AMYL ####[facility] [address] [place] [phone] Eosinophils/100 WBC (Bld) 3.9 % Normal [facility] (63229) Comment: Performed By: #### LIPA, CMP , CBCDIF, AMYL ####[facility] [place] [phone] Erythrocyte distribution 14.7 11.5-15.0 % Normal 02-14 [facility] width (RBC) [Ratio] [place] ([address]) Comment: Performed By: #### LIPA, CMP , CBCDIF, AMYL ####[facility] [address] [place] [phone] Hematocrit (Bld) [Volume 40.4 36.0-46.0 % Normal 02-14 [facility] fraction] [place] ([address]2010) Comment: Performed By: #### LIPA, CMP , CBCDIF, AMYL ####[facility] [address] [place] [phone] Hemoglobin (Bld) 12.0 11.5-15.5 g/dL Normal 02-15-2020 [facility] [Mass/Vol] [place] ([address]175) Comment: Performed By: #### LIPA, CMP , CBCDIF, AMYL ####[facility] [address] [place] [phone] Lymphocytes (Bld) [#/Vol] 2.77 1.00-4.00 k/uL Normal -0 [facility] (42092) Comment: Performed By: #### LIPA, CMP , CBCDIF, AMYL ####[facility] [place], [place] [phone] Lymphocytes/100 WBC (Bld) 28.3 % Normal [facility] (58234) Comment: Performed By: #### LIPA, CMP , CBCDIF, AMYL ####[facility] [place] [phone] MCH (RBC) [Entitic mass] 28.6 26.0-34.0 pG Normal 02-14 [facility] (98447) Comment: Performed By: #### LIPA, CMP , CBCDIF, AMYL ####[place] [address] [place], [place] [phone] MCHC (RBC) [Mass/Vol] 29.7 30.5-36.0 g/dL Low 02-15-20 [facility] (89116) Comment: Performed By: #### LIPA, CMP , CBCDIF, AMYL ####[facility] [place], [place] [phone] MCV (RBC) [Entitic vol] 96.4 80.0-100.0 fL Normal 02-14 [facility] (92926) Comment: Performed By: #### LIPA, CMP , CBCDIF, AMYL ####[facility] [place], [place] [phone] Monocytes/100 WBC (Bld) 5.4 % Normal 2019 [facility] (22631) Comment: Performed By: #### LIPA, CMP , CBCDIF, AMYL ####[facility] [place], [place] [phone] Neutrophils/100 WBC (Bld) 61.7 % Normal [facility] (20499) Comment: Performed By: #### LIPA, CMP , CBCDIF, AMYL ####[place] [address] [place], [place] [phone] NRBCs 0.0 0 /100 WBC Normal 02-15-2020 [facility] (71520) Comment: Performed By: #### LIPA, CMP , CBCDIF, AMYL ####[place] [address] [place] [phone] Platelet mean volume 10.6 9.0-12.7 fL Normal 0 [facility] (Bld) [Entitic vol] [place] ([address]) Comment: Performed By: #### LIPA, CMP , CBCDIF, AMYL ####[place] [address] [place] [phone] Platelets (Bld) [#/Vol] 435 150-400 k/uL High 2019 [facility] (47379) Comment: Performed By: #### LIPA, CMP , CBCDIF, AMYL ####[place] [address] [place] [phone] RBC (Bld) [#/Vol] 4.19 3.90-5.20 m/uL Normal 02-15-2020 [facility] (67590) Comment: Performed By: #### LIPA, CMP , CBCDIF, AMYL ####[place] [address] [place] [phone] WBC (Bld) [#/Vol] 9.80 3.70-11.00 k/uL Normal 02-15-2020 [facility] (31914) Comment: Performed By: #### LIPA, CMP , CBCDIF, AMYL ####[place] [address] [place] [phone] amylase on Amylase [Catalytic 52 30-104 U/L Normal 02-15-2020 [facility] activity/Vol] [place] and (85078) Comment: Performed By: #### LIPA, CMP , CBCDIF, AMYL #### [facility] Laborator[facility] s [address] [place], [place] [address] progress on 2020-02 PROGRESS HNO ID: [id number] Normal 02-14-2020 [facility] Author: Jessica Coppola) Fabi Lara ([id number]) Service: ? Author Type: Physician Nurses' Registry Director Type: Progress Notes Filed: 02/14/2020 1:14 [...] Benign liver cyst 05/24/2010 CT scan at [facility] 11/2009 and 04/2010 showe 4 mm increase in size . No pain. No elevated LFTs on 03/11/2010. - Calculus of kidney 05/17/[address] Nicolas: Hospitalized age 20, and again later -- no procedures so far ([facility], most, 1995 [facility]) - Dysmenorrhea - Impaired fasting glucose [...] 5:34am 09-02-2019 [facility] (36418) - ondansetron orally disintegrating (ZOFRAN ODT) 4 [...] Approx. 3 cigarettes daily-1 pack every w [place] Substance Use Topics - Alcohol use: Yes [...] Sp. Request/Comment: - Swab Critical ly 02-14-2020 [facility] abnormal [place] Culture Result - Few Neris glabrata --> ABNORMAL ALERT (10647) Comment: Performed By: #### FUNGSC ## ##[facility] [address] [place], [place] [phone] cnov on 2020-02-14 CNOV Office Visit (UCWSTR) Normal 02-14-20 [place] [facility] SALLY VARGAS ([id number]) 1980 F [place] Date Time Provider Department ([id number]) 02/14/20 12:45 PM JESSICA JESUS ([facility]) [facility] During your visit today, we recorded the [...] Benign liver cyst 05/24/2010 CT scan at [facility] 11/2009 and 04/2010 showe 4 mm increase in size . No pain. No elevated LFTs on 03/11/2010. - Calculus of kidney 05/17/[address] Nicolas: Hospitalized age 20, a nd again later -- no procedures so far ([facility], most, 1995 [facility]) - Dysmenorrhea - Impaired fasting glucose [...] DAILY September 02, 2019 5:34am 20-2 019 [facility] (83546) - ondansetron orally disintegrating (ZOFRAN ODT) 4 [...] Approx. 3 cigarettes daily-1 pack every w [place] Substance Use Topics - Alcohol use: Yes [...] (METRONIDAZOLE HCL) 03/11/2010 12 - Shortness of [place] IBUPROFEN 06/18/2016 8 - GI Upset [...] mLRfl: 0 FUNGAL SCREEN [SQFUNGSC] Order #: [id number] Prescriptions as of 02/14/2020 Sig: PROMETHAZINE 25 [...] JESUS PA-C on 02/14/20 cnpn on 2020-02-13 [facility] Normal 02-13-2020 [place] [facility] SALLY VARGAS ([id number]) 1980 [facility] Date Time Provider Department (72237) 02/13/20 [facility] During your visit today, we recorded the following informati on about you: Christopher Carcamo RN 02/13/2020 10:27 AM Signed Patient reports she was discharged from [facility] yesterday, after a 4 day stay, for pancreatitis. Scheduled f/u visit with [facility], for tomorro w. Patient asking note be sent to provider also. Reports she still has a sore on he r tongue, [facility] doctor was not concerned about it. [...] (METRONIDAZOLE HCL) 03/11/2010 12 - Shortness of [place] IBUPROFEN 06/18/2016 8 - GI Upset PENICILLINS 12/07/2009 2 - Rash PREDNISONE 06/18/2016 14 - Other: See Comments Comments: makes agitated and mean Date Reviewed: 01/02/2020 Reviewed by: Ashley Lehman Ma - Fully Assessed Reason for Visit: [facility] visit [Other] Prescriptions as of 02/13/2020 [...] on 2020-02-09 CNPN Telephone (FAMWS) Normal 02-09-2020 [place] [facility] SALLY VARGAS ([id number]) 1980 [facility] Date Time Provider Department ([id number]) 02/09/20 [facility] During your visit today, we recorded [...] calls back, stating she is currently at [facility] ER. States she had labs done [...] (METRONIDAZOLE HCL) 03/11/2010 12 - Shortness of [place] IBUPROFEN 06/18/2016 8 - GI Upset [...] 02/09/20 progress on 2020-01 PROGRESS HNO ID: [id number] Normal 02-08-2020 [facility] Author: Isabel Romero) Hugo Lara ([id number]) Service: ? Author Type: Physician Nurses' Registry Director Type: Progress Notes Filed: 02/08/2020 10:57 AM Note Text: DISTANCE HEALTH VISIT This Team Access Model visit is a phone encounter. It requir ed patient-provider interaction for the medical decision making as documented below. No video was used for evaluation of this patient. Patient consents to visit. Patient location: [place] Sally Vargas is a 39 year old [...] per patient report who presented to the [facility] ED on 02/01/20 with i ntermittent [...] has [facility] with [facility] for what to do next. She has been taking oxycodone every 4 hours but has not need any yet today. Does mention a sore on her forearm. States getting worse. Red and hardened. 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 States she noticed it first in hospital. She is unable to send picture or have video conference. Is w illing to come to . HISTORY REVIEWED (electronic chart updated): - medical history - medications - allergies REVIEW OF SYSTEMS: As noted in HPI PHYSICAL EXAMINATION: [facility] 08/10/2006 No vitals taken. Deferred [...] minutes progress on 2020-01 PROGRESS HNO ID: [id number] Normal 02-07-2020 [facility] Author: Yvette Taylor RN [place] ([id number]) Service: ? Author Type: ? Type: Progress [...] might be hidden SUMMARY: -Pt discharged from [facility] on 02-05-2020. -Follow up appointment on [...] per patient report who presented to the [facility] ED on 02/01/20 with i ntermittent [...] CNPTOUTREACH Patient Outreach (FAMPWS) Normal 0 02-07-2020 [place] [facility] SALLY VARGAS ([id number]) 1980 [facility] Date Time Provider Department ([id number]) 02/07/20 MARCELINO MEJIA FAMPWS During your visit [...] might be hidden SUMMARY: -Pt discharged from [facility] on 02-05-2020. -Follow up appointment on [...] a 39 y/o F w/ PMHx: Obesity, Electrical Contacts Adjuster nghia Pain Syndrome, Migraines, Known Lung Nodules, Hx Uteri ne CA, Hx Nephrolithiasis, Tobacco use, Anxiety and Depression with Suspected Bipolar disorder recently starte d on seroquel and sertraline, Recent Dental ev aluation with Infection on clindamycin with planned upcoming removal in 4-6 week s per patient report who presented to the [facility] ED on 02/01/20 with intermittent epigastric [...] 02/07/20 emergency report on 2020-01-28 [facility]ENCY [facility] Normal 01-27 [facility] EMERGENCY ROOM REPORT ([id number]) NAME ACCOUNT SEX AGE ADMIT DISCHARGE PT MED. RECORD# NUMBER DATE DATE TYPE SAM, [id number] F 39 01/20/20 01/21/20 3 SALLY [id number] ROOM: ER DATE OF : 1980 DICTATING [...] PHYSICAL EXAMINATION: Physic al examination reveals a kio-nyc-hktvhvnwt female in no acute distress, resting c [...] patient with Dr. Coleman at [facility], who accepted the patient for admission. The patient was transferred to [facility] in stable condition. Dictated By: Ana Rodriguez MD 01/21/20 01:30 JOB #: [id number] Transcribed By: thanh 01/21/20 10:04 Electronically signed by: Jennifer Perez MD 01/28/20 00:29 Page 2 of 2 SALLY VARGAS Emergency Room Report myco on 2020-01-26 Mycoplasma IgG POS Normal 01-26-2020 [facility] ([place]) (05864) Comment: Result Comment: INTERPRETATI ON OF MYCOPLASMA [...] CBC, ADIF F, ANEU, BMP, GFR #### [place] [address] progress on 2020-01 PROGRESS HNO ID: [id number] Normal 01-25-2020 [facility] Author: Roxanne Patel MA ([id number]) Service: ? Author Type: Sales Consultant Type: Progress Notes Filed: 01/25/2020 7:39 AM Note Text: Te made to get setup. Roxanne Patel MA cnpn on 2020-01-25 CNPN Telephone (FAMPWS) Normal 01-25-2020 [place] [facility] SALLY VARGAS ([id number]) 1980 [facility] Date Time Provider Department (10542) 01/25/20 ISABEL ARIAS) RAMA During your visit [...] Fully Assessed Reason for Visit: MRI Appointment [2699] Prescriptions as of 01/25/2020 Sig: TOPIRAMATE 25 [...] 01/26/20 progress on 2020-01 PROGRESS HNO ID: [id number] Normal 01-24-2020 [facility] Author: Isabel Lara ([id number]) Service: ? Author Type: Physician Nurses' Registry Director Type: Progress Notes Filed: 01/24/2020 4:03 PM Note Text: DISTANCE HEALTH VISIT This Team Access Model visit is a phone encounter. It requir ed patient-provider interaction for the medical decision making as documented below. No video was used for evaluation of this patient. Patient consents to visit. Patient's location: [place] Chief Complaint No chief complaint on file. [...] patient was to see pain specialist in [facility]. She has missed or cancelled appointments due [...] over the weekend. She was transferred to [place] in [place]. Reports n ot available but patient states ECHO and labs were normal. . States she received a phone call from an [place] And was told negative for Covid. But [...] pharmacy. She did receive phone call from analysis specialist last week and w ill be set up for heart monitor. She was suppose to have stress testing done at [facility] today and Carotid US done yesterday, [...] Benign liver cyst 05/24/2010 CT scan at [facility] 11/2009 and 04/2010 showe 4 mm increase in size . No pain. No elevated LFTs on 03/11/2010. - Calculus of kidney 05/17/[address] Nicolas: Hospitalized age 20, and again later -- no procedures so far ([facility], most, 1995 [facility]) - Dysmenorrhea - Impaired fasting glucose [...] 5:34am 09-02-2019 [facility] (71541) - ondansetron orally disintegrating (ZOFRAN ODT) 4 [...] Approx. 3 cigarettes daily-1 pack every w [place] Substance Use Topics - Alcohol use: Yes [...] - ICD9: 786.59, ICD10: R07.89 Continue with analysis specialist. Will attempt to get records to see [...] covid on 2020-01-24 COVID 19 Result QUALITY LEAD See Below CORNEG Normal 01-24-2020 [facility] ([place]) (0000 0) Comment: Result Comment: Negative Negative for COVID19 (SARS C oV2) by PCR. This test was developed and its performance characteristics determined by [facility]'s [facility] [place]. This test has bee n authorized by [...] issued on November 12, 2019. Performed By: [facility] Laboratorie s [address] [place] [address] Maintenance Shop Clerk: Raphael javier III, M.D. CLIA#: [id number] Phone#: Performed By: #### CBC, ADIF F, ANEU, BMP, GFR #### [place] [address] COVID 19 Source QUALITY LEAD See Below Normal 01-24-2020 [facility] ([place]) (15576) Comment: Result Comment: Nasopharynge al Swab Performed By: [facility] Labor[facility] [address] [place] [address] Maintenance Shop Clerk: Raphael javier III, M.D. CLIA#: [id number] Phone#: Performed By: #### CBC, ADIF F, ANEU, BMP, GFR #### [address] [address] myco on 2020-01-23 Mycoplasma IgM Negative Normal 01-23-2020 [facility] ([place]) (58951) Comment: Result Comment: INTERPRETATI ON OF MYCOPLASMA [...] CBC, ADIF F, ANEU, BMP, GFR #### [address] [address] crp on 2020-01-23 CRP [Mass/Vol] 0.57 <=0.80 mg/dL Normal 01-23-2020 [facility] ([place]) (99722) Comment: Performed By: #### CBC, ADIF F, ANEU, BMP, GFR #### [facility] [address] [place] [address] cnpn on 2020-01-23 CNPN Telephone (FAMPWS) Normal 01-23-2020 [place] [facility] SALLY VARGAS ([id number]) 1980 [place] Date Time Provider Department (19560) 01/23/20 ISABEL ARIAS) FAMPWS During your visit today, we recorded the following informati on about you: Lexy Tapia RN 01/23/2020 8:55 AM Signed fyi-Patient calls to report that she went to [facility] with chest pain. Transferred to [facility] and Echo was normal. She will have stress test tomorrow. Awaiting COVID-19 test results . Wanted PCP office aware. Reminded to schedule hospital follow up within two weeks of discharge. Lexy ARIAS PA-C 01/23/2020 9:10 AM Signed Noted. Please request ER records. Roxanne Patel MA, MA 01/23/2020 9:32 AM Signed Sent records to [facility] [place] [facility]. DARRYN Fritz PA-C 01/24/2020 9:02 AM Signed Patient is scheduled this afternoon for ER Follow up. Basically until I have the ER report and stress test results, theres not much I can do. As we discussed, She is supposed t o be following up with cardiology- has seen whitley qiu as well. Please reschedule her for later this w [place] so we have time to get the [...] insurance there is not [facility] so waiting o n [facility] and has no way to get [facility] offered appt for until [...] (METRONIDAZOLE HCL) 03/11/2010 12 - Shortness of [place] IBUPROFEN 06/18/2016 8 - GI Upset [...] 14.1 11.5-15.5 % Normal 01-22 [facility] (RBC) [Ratio] [facility] ([place]) (06643) Comment: Performed By: #### CBC, ADIF F, ANEU, BMP, GFR #### [place] [address] Hematocrit (Bld) [Volume 35.6 34.0-46.0 % Normal 01-22 [facility] fraction] ([place]) (0000 0) Comment: Performed By: #### CBC, ADIF F, ANEU, BMP, GFR #### [place] [address] Hemoglobin (Bld) 11.9 12.0-16.0 G/dL Low 01-23-2020 [facility] [Mass/Vol] ([place]) (000 00) Comment: Performed By: #### CBC, ADIF F, ANEU, BMP, GFR #### [place] [id number] MCH (RBC) [Entitic mass] 30.0 27.0-33.0 pg Normal 01-22 [facility] ([place]) (0000 0) Comment: Performed By: #### CBC, ADIF F, ANEU, BMP, GFR #### [address] [address] MCHC (RBC) [Mass/Vol] 33.4 32.0-36.0 G/dL Normal 01-23-20 20 [facility] ([place]) (0000 0) Comment: Performed By: #### CBC, ADIF F, ANEU, BMP, GFR #### [place] [id number] MCV (RBC) [Entitic vol] 89.8 80.0-99.0 fL Normal 2019 [facility] ([place]) (0000 0) Comment: Performed By: #### CBC, ADIF F, ANEU, BMP, GFR #### [address] [address] Platelet mean volume 8.5 6.6-10.5 fL Normal 0 [facility] (Bld) [Entitic vol] ([place]) (17012) Comment: Performed By: #### CBC, ADIF F, ANEU, BMP, GFR #### [address] [address] Platelets (Bld) [#/Vol] 235 150-450 10 3/mcL Normal 2019 [facility] ([place]) (00071) Comment: Performed By: #### CBC, ADIF F, ANEU, BMP, GFR #### [place] [id number] RBC (Bld) [#/Vol] 3.97 4.10-5.30 10 6/mcL Low 01-23-2020 [facility] ([place]) (0000 0) Comment: Performed By: #### CBC, ADIF F, ANEU, BMP, GFR #### [place] [address] WBC (Bld) [#/Vol] 10.20 4.50-10.80 10 3/mcL Normal 01-23-2020 [facility] ([place]) (48981) Comment: Performed By: #### CBC, ADIF F, ANEU, BMP, GFR #### [address] [address] bmp on 2020-01-23 Creatinine [Mass/Vol] 0.94 0.50-1.20 mg/dL Normal 01-23-20 20 [facility] ([place]) (94020) Comment: Performed By: #### CBC, ADIF F, ANEU, BMP, GFR #### [place] [address] Urea nitrogen/Creatinine 20.2 10.0-22.0 ratio Normal 01-22 [facility] [Mass ratio] Foundat ion ([place]) (31098) Comment: Performed By: #### CBC, ADIF F, ANEU, BMP, GFR #### [place] [address] Calcium [Mass/Vol] 9.4 8.4-10.1 mg/dL Normal 01-23-2020 [facility] ([place]) (0000 0) Comment: Performed By: #### CBC, ADIF F, ANEU, BMP, GFR #### [address] [address] Chloride [Moles/Vol] 106 98-110 mEq/L Normal 0 [facility] ([place]) (0000 0) Comment: Performed By: #### CBC, ADIF F, ANEU, BMP, GFR #### [address] [address] CO2 [Moles/Vol] 28 22-32 mEq/L Normal 01-23-2020 [facility] ([place]) (60199) Comment: Performed By: #### CBC, ADIF F, ANEU, BMP, GFR #### [address] [address] Electrolyte Balance 6.0 4.0-15.0 mEq/L Normal 01-23-2020 [facility] ([place]) (0000 0) Comment: Performed By: #### CBC, ADIF F, ANEU, BMP, GFR #### [address] [address] Glucose [Mass/Vol] 91 70-110 mg/dL Normal 01-23-2020 [facility] ([place]) (43345) Comment: Performed By: #### CBC, ADIF F, ANEU, BMP, GFR #### [address] [address] Potassium [Moles/Vol] 4.2 3.5-5.0 mEq/L Normal 01-23-20 20 [facility] ([place]) (0000 0) Comment: Performed By: #### CBC, ADIF F, ANEU, BMP, GFR #### [address] [address] Sodium [Moles/Vol] 140 136-145 mEq/L Normal 01-23-2020 [facility] ([place]) (72713) Comment: Performed By: #### CBC, ADIF F, ANEU, BMP, GFR #### [address] [address] Urea nitrogen [Mass/Vol] 19.0 8.0-22.0 mg/dL Normal 01-22 [facility] ([place]) (24493) Comment: Performed By: #### CBC, ADIF F, ANEU, BMP, GFR #### [address] [address] .morph on 2020-01-13 1 Platelets (Bld) [#/Vol] Normal Normal 2019 [facility] ([place]) (61873) Comment: Result Comment: Few large pl atelets seen. Performed By: #### CBC, ADIF F, ANEU, BMP, GFR #### [place] [address] RBC morphology finding Nom Normal Normal [facility] (Bld) ([place]) (0000 0) Comment: Performed By: #### CBC, ADIF F, ANEU, BMP, GFR #### [place] [address] .manual diff on Basophil %, Manual 0.0 0.0-2.5 % Normal 01-23-2020 [facility] ([place]) (97641) Comment: Performed By: #### CBC, ADIF F, ANEU, BMP, GFR #### [place] [address] Basophil, Abs Manual 0.00 0.00-0.27 10 3/mcL Normal 0 [facility] ([place]) (86398) Comment: Performed By: #### CBC, ADIF F, ANEU, BMP, GFR #### [place] [address] Cells Counted 100 Normal 01-23-2020 [facility] ([place]) (75122) Comment: Performed By: #### CBC, ADIF F, ANEU, BMP, GFR #### [address] [address] Eosinophil %, Manual 0.0 0.0-6.0 % Normal 0 [facility] ([place]) (08834) Comment: Performed By: #### CBC, ADIF F, ANEU, BMP, GFR #### [place] [address] Eosinophil, Abs Manual 0.00 0.00-0.65 10 3/mcL Normal 020 [facility] ([place]) (78311) Comment: Performed By: #### CBC, ADIF F, ANEU, BMP, GFR #### [place] [address] Lymphocyte %, Manual 16.0 20.0-40.0 % Low 0 [facility] ([place]) (60579) Comment: Performed By: #### CBC, ADIF F, ANEU, BMP, GFR #### [place] [address] Lymphocyte, Abs Manual 1.63 0.90-4.32 10 3/mcL Normal 020 [facility] ([place]) (22017) Comment: Performed By: #### CBC, ADIF F, ANEU, BMP, GFR #### [place] [address] Monocyte %, Manual 5.0 2.0-13.0 % Normal 01-23-2020 [facility] ([place]) (21747) Comment: Performed By: #### CBC, ADIF F, ANEU, BMP, GFR #### [place] [address] Monocyte, Abs Manual 0.51 0.09-1.40 10 3/mcL Normal 0 [facility] ([place]) (77926) Comment: Performed By: #### CBC, ADIF F, ANEU, BMP, GFR #### [place] [address] Neutrophil %, Manual 79.0 50.0-75.0 % High 0 [facility] ([place]) (85407) Comment: Performed By: #### CBC, ADIF F, ANEU, BMP, GFR #### [place] [address] Neutrophil, Abs Manual 8.06 2.25-8.10 10 3/mcL Normal 020 [facility] ([place]) (48132) Comment: Performed By: #### CBC, ADIF F, ANEU, BMP, GFR #### [place] [address] .gfr on 2020-01-23 GFR >60 Normal 01-22- 0 [facility] ([place]) (98967) Comment: Result Comment: GFR Population mean for Afri can [place]ian, Non- Americans Ages 20-29 = 116 mL/min/1.73 [...] CBC, ADIF F, ANEU, BMP, GFR #### [address] [address] GFR Non- >60 Normal 01-22 [facility] ([place]) (21302) Comment: Result Comment: GFR Population mean for Afri can [place], Non- Americans Ages 20-29 = 116 mL/min/1.73 [...] CBC, ADIF F, ANEU, BMP, GFR #### [address] [address] spag on 2020-01-22 SPAG . Normal 01-22-2020 [facility] asa MICRO - Microbiology [facility] ([place]) (18034) PROCEDURE: Streptococcus Pneumoniae Urine Antig [^1 *1] [...] Locations *1: This test was performed at: [address], [address]- , [place] [facility] Comment: Performed By: #### CBC, ADIF F, ANEU, BMP, GFR #### [place] [address] respid on 2020-01-13 0 Adenovirus Not Detected Not Detected Normal 01-22-2020 [facility] ([place]) (0000 0) Comment: Performed By: #### CBC, ADIF F, ANEU, BMP, GFR #### [place] [address] Bordetella Not Detected Not Detected Normal 01-22-2020 [facility] Parapertussis Founda tion ([place]) (87313) Comment: Performed By: #### CBC, ADIF F, ANEU, BMP, GFR #### [place] [address] Bordetella Pertussis Not Detected Not Detected Normal [facility] ([place]) (03535) Comment: Performed By: #### CBC, ADIF F, ANEU, BMP, GFR #### [place] [address] Chlamydophila Not Detected Not Detected Normal 01-22-2020 [facility] pneumoniae Foundatio n ([place]) (99340) Comment: Performed By: #### CBC, ADIF F, ANEU, BMP, GFR #### [address] [address] Coronavirus 229E Not Detected Not Detected Normal 020 [facility] (93991) Comment: Performed By: #### CBC, ADIF F, ANEU, BMP, GFR #### [address] [address] Coronavirus HKU1 Not Detected Not Detected Normal 020 [facility] (05573) Comment: Performed By: #### CBC, ADIF F, ANEU, BMP, GFR #### [address] [address] Coronavirus NL63 Not Detected Not Detected Normal 020 [facility] (Not COVID-19) [facility] (99714) Comment: Performed By: #### CBC, ADIF F, ANEU, BMP, GFR #### [address] [address] Coronavirus OC43 Not Detected Not Detected Normal 020 [facility] (Not COVID-19) [facility] (50217) Comment: Performed By: #### CBC, ADIF F, ANEU, BMP, GFR #### [address] [address] Human Metapneumovirus Not Detected Not Detected Normal [facility] ([place]) (18020) Comment: Performed By: #### CBC, ADIF F, ANEU, BMP, GFR #### [address] [address] Influenza A Not Detected Not Detected Normal 01-22-2020 [facility] ([place]) (0000 0) Comment: Performed By: #### CBC, ADIF F, ANEU, BMP, GFR #### [address] [address] Influenza B Not Detected Not Detected Normal 01-22-2020 [facility] ([place]) (0000 0) Comment: Performed By: #### CBC, ADIF F, ANEU, BMP, GFR #### [facility] [address] [place], [place] [address] Mycoplasma Not Detected Not Detected Normal 01-22-2020 [facility] pneumoniae Foundatio n ([place]) (79108) Comment: Performed By: #### CBC, ADIF F, ANEU, BMP, GFR #### [address] [address] Parainfluenza 1 Not Detected Not Detected Normal 01-22-20 [facility] ([place]) (31188) Comment: Performed By: #### CBC, ADIF F, ANEU, BMP, GFR #### [address] [address] Parainfluenza 2 Not Detected Not Detected Normal 01-22-20 [facility] ([place]) (18827) Comment: Performed By: #### CBC, ADIF F, ANEU, BMP, GFR #### [place] [address] Parainfluenza 3 Not Detected Not Detected Normal 01-22-20 [facility] ([place]) (08466) Comment: Performed By: #### CBC, ADIF F, ANEU, BMP, GFR #### [address] [address] Parainfluenza 4 Not Detected Not Detected Normal 01-22-[address] [place] [address] ([place]) (53167) Comment: Performed By: #### CBC, ADIF F, ANEU, BMP, GFR #### [address] [address] Respiratory Not Detected Not Detected Normal 01-22-2020 [facility] Syncytial Virus Foun dation ([place]) (07883) Comment: Performed By: #### CBC, ADIF F, ANEU, BMP, GFR #### [address] [address] Rhinovirus/Enterovirus Not Detected Not Detected Normal 0 01-22-2020 [facility] ([place]) (87075) Comment: Performed By: #### CBC, ADIF F, ANEU, BMP, GFR #### [address] [address] sonali on 2020-01-22 SONALI . Normal 01-22-2020 [facility] MICRO - Microbiology [facility] ([place]) (51720) PROCEDURE: Legionella Urine Ag [*1] SOURCE: Urine [...] Locations *1: This test was performed at: [address], [address] , [place] Comment: Performed By: #### CBC, ADIF F, ANEU, BMP, GFR #### [address] [address] ldh on 2020-01-22 LDH 194 120-246 U/L Normal 01-22-2020 [facility] ([place]) (06835) Comment: Performed By: #### CBC, ADIF F, ANEU, BMP, GFR #### [address] [address] fib on 2020-01-22 Fibrinogen 414 250-550 mg/dL Normal 01-22-2020 [facility] ([place]) (85260) Comment: Performed By: #### CBC, ADIF F, ANEU, BMP, GFR #### [address] [address] ferr on 2020-01-22 Ferritin [Mass/Vol] 40 8-252 ng/mL Normal 01-22-2020 [facility] ([place]) (97728) Comment: Performed By: #### CBC, ADIF F, ANEU, BMP, GFR #### [address] [address] dimer on 2020-01-22 Fibrin D-dimer FEU IA <200 0-230 ug/mL Normal 01-22-20 20 [facility] (Bld) [Mass/Vol] ([place] ) (82287) Comment: Result Comment: Results repo rted in [...] F, ANEU, BMP, GFR #### [facility] [address] [place] [address] ct angiography chest w/contrast on 2020-01-22 CT ANGIOGRAPHY ORIGINAL Normal 01-22-2020 [facility] CHEST W/CONTRAST CT PULMONARY ANGIOGRAM WITH IV CONTRAST: with post-processing, volume rendering and 3-D acquisitions. This exam was performed according to our departmental dose optimization program, and includes the [facility] ([place]) llowing measures where appli cable: automated exposure control, adjustment of the mAs and/or kVp according to patient size and/or exam, and an iterative reconstruction algorithm. Patient received 13 hour (30013) contrast allergy preparation. CLINICAL STATEMENT: elevated d [...] 13.7 11.5-15.5 % Normal 01-21 [facility] (RBC) [Ratio] [facility] ([place]) (88801) Comment: Performed By: #### CBC, ADIF F, ANEU, BMP, GFR #### [address] [address] Hematocrit (Bld) [Volume 36.0 34.0-46.0 % Normal 01-21 [facility] fraction] ([place]) (0000 0) Comment: Performed By: #### CBC, ADIF F, ANEU, BMP, GFR #### [address] [address] Hemoglobin (Bld) 11.9 12.0-16.0 G/dL Low 01-22-2020 [facility] [Mass/Vol] ([place]) (000 00) Comment: Performed By: #### CBC, ADIF F, ANEU, BMP, GFR #### [address] [address] MCH (RBC) [Entitic mass] 29.6 27.0-33.0 pg Normal 01-21 [facility] ([place]) (0000 0) Comment: Performed By: #### CBC, ADIF F, ANEU, BMP, GFR #### [address] [address] MCHC (RBC) [Mass/Vol] 33.0 32.0-36.0 G/dL Normal 01-22-20 20 [facility] ([place]) (0000 0) Comment: Performed By: #### CBC, ADIF F, ANEU, BMP, GFR #### [address] [address] MCV (RBC) [Entitic vol] 89.8 80.0-99.0 fL Normal 2019 [facility] ([place]) (0000 0) Comment: Performed By: #### CBC, ADIF F, ANEU, BMP, GFR #### [address] [address] Platelet mean volume 8.6 6.6-10.5 fL Normal 0 [facility] (d) [Entitic vol] ([place]) (30925) Comment: Performed By: #### CBC, ADIF F, ANEU, BMP, GFR #### [place] [id number] Platelets (Bld) [#/Vol] 269 150-450 10 3/mcL Normal 2019 [facility] ([place]) (50538) Comment: Performed By: #### CBC, ADIF F, ANEU, BMP, GFR #### [address] [address] RBC (Bld) [#/Vol] 4.01 4.10-5.30 10 6/mcL Low 01-22-2020 [facility] ([place]) (0000 0) Comment: Performed By: #### CBC, ADIF F, ANEU, BMP, GFR #### [place] [id number] WBC (Bld) [#/Vol] 12.20 4.50-10.80 10 3/mcL High 01-22-2020 [facility] ([place]) (0000 0) Comment: Performed By: #### CBC, ADIF F, ANEU, BMP, GFR #### [address] [address] bmp on 2020-01-22 Calcium [Mass/Vol] 9.5 8.4-10.1 mg/dL Normal 01-22-2020 [facility] ([place]) (0000 0) Comment: Performed By: #### CBC, ADIF F, ANEU, BMP, GFR #### [address] [address] Chloride [Moles/Vol] 106 98-110 mEq/L Normal 0 [facility] ([place]) (0000 0) Comment: Performed By: #### CBC, ADIF F, ANEU, BMP, GFR #### [address] [address] CO2 [Moles/Vol] 24 22-32 mEq/L Normal 01-22-2020 [facility]) (00147) Comment: Performed By: #### CBC, ADIF F, ANEU, BMP, GFR #### [address] [address] Creatinine [Mass/Vol] 0.76 0.50-1.20 mg/dL Normal 01-22-20 20 [facility] ([place]) (64531) Comment: Performed By: #### CBC, ADIF F, ANEU, BMP, GFR #### [address] [address] Electrolyte Balance 6.0 4.0-15.0 mEq/L Normal 01-22-2020 [facility]) (0000 0) Comment: Performed By: #### CBC, ADIF F, ANEU, BMP, GFR #### [address] [address] Glucose [Mass/Vol] 149 70-110 mg/dL High 01-22-2020 [facility] ([place]) (61197) Comment: Performed By: #### CBC, ADIF F, ANEU, BMP, GFR #### [address] [address] Potassium [Moles/Vol] 4.1 3.5-5.0 mEq/L Normal 01-22-20 20 [facility] ([place]) (0000 0) Comment: Performed By: #### CBC, ADIF F, ANEU, BMP, GFR #### [address] [address] Sodium [Moles/Vol] 136 136-145 mEq/L Normal 01-22-2020 [facility] ([place]) (20318) Comment: Performed By: #### CBC, ADIF F, ANEU, BMP, GFR #### [address] [address] Urea nitrogen [Mass/Vol] 12.0 8.0-22.0 mg/dL Normal 01-21 [facility] ([place]) (41016) Comment: Performed By: #### CBC, ADIF F, ANEU, BMP, GFR #### [address] [address] Urea nitrogen/Creatinine 15.8 10.0-22.0 ratio Normal 01-21 [facility] [Mass ratio] [facility] ([place] (67598) Comment: Performed By: #### CBC, ADIF F, ANEU, BMP, GFR #### [address] [address] .neuabs on Neutrophils (Bld) 10.70 2.25-8.10 10 3/mcL High 01-22-2020 [facility] [#/Vol] [facility] ([place]) (21600) Comment: Performed By: #### CBC, ADIF F, ANEU, BMP, GFR #### [address] [address] .gfr on 2020-01-22 GFR Non- >60 Normal 01-21 [facility] ([place]) (34333) Comment: Result Comment: GFR Population mean for Afri can [place]ian, Non- Americans Ages 20-29 = 116 mL/min/1.73 [...] CBC, ADIF F, ANEU, BMP, GFR #### [address] [address] GFR >60 Normal 0 [facility] ([place]) (63523) Comment: Result Comment: GFR Population mean for Afri can [place], Non- Americans Ages 20-29 = 116 mL/min/1.73 [...] CBC, ADIF F, ANEU, BMP, GFR #### [address] [address] .auto diff on 01-21 Ammonia (P) [Mass/Vol] 0.30 0.09-1.40 10 3/mcL Normal 020 [facility] ([place]) (73044) Comment: Performed By: #### CBC, ADIF F, ANEU, BMP, GFR #### [address] [address] Basophils (Bld) 0.00 0.00-0.27 10 3/mcL Normal 01-22-[address] [facility] [#/Vol] [facility] ([place]) (29672) Comment: Performed By: #### CBC, ADIF F, ANEU, BMP, GFR #### [address] [address] Basophils/100 WBC (Bld) 0.3 0.0-2.5 % Normal 2019 [facility] ([place]) (0000 0) Comment: Performed By: #### CBC, ADIF F, ANEU, BMP, GFR #### [address] [address] Eosinophils (Bld) 0.00 0.00-0.65 10 3/mcL Normal 01-22-2020 [facility] [#/Vol] [facility] ([place]) (57623) Comment: Performed By: #### CBC, ADIF F, ANEU, BMP, GFR #### [address] [address] Eosinophils/100 WBC (Bld) 0.1 0.0-6.0 % Normal 01-12 0-2019 [facility] ([place]) (0000 0) Comment: Performed By: #### CBC, ADIF F, ANEU, BMP, GFR #### [address] [address] Lymphocytes (Bld) 1.10 0.90-4.32 10 3/mcL Normal 01-22-2020 [facility] [#/Vol] [facility] ([place]) (85643) Comment: Performed By: #### CBC, ADIF F, ANEU, BMP, GFR #### [address] [address] Lymphocytes/100 WBC (Bld) 9.3 20.0-40.0 % Low - 0-2019 [facility] ([place]) (0000 0) Comment: Performed By: #### CBC, ADIF F, ANEU, BMP, GFR #### [address] [address] Monocytes/100 WBC (Bld) 2.2 2.0-13.0 % Normal 2019 [facility] ([place]) (0000 0) Comment: Performed By: #### CBC, ADIF F, ANEU, BMP, GFR #### [address] [address] Neutrophils/100 WBC (Bld) 88.1 50.0-75.0 % High - 0-2019 [facility] ([place]) (0000 0) Comment: Performed By: #### CBC, ADIF F, ANEU, BMP, GFR #### [address] [address] urinalysis with microscopy on 2020-01-21 Amorphous NONE Normal 01-21-2020 [facility] (14097) Comment: Performed By: #### [id number] ## ## [facility] [place] [address] Bacteria LM.HPF (Urine sed) 3+ Normal [facility] [/Area] [facility] ( 766[address]) Comment: Performed By: #### [id number] ## ## [facility],[address] [place] [address] Bilirubin [Mass/Vol] NEG NORMAL: NEGATIVE mg/dL Normal [facility] (80776) Comment: Performed By: #### [id number] ## ## [facility],[address] [place] [address] Blood 10 NORMAL: NEGATIVE Abnormal 01-21-2020 [facility] (97395) Comment: Performed By: #### [id number] ## ## [facility],[address] [place] [address] Casts LM.LPF (Urine sed) NONE Normal 01-20 [facility] [#/Area] [facility] ( 85487) Comment: Performed By: #### [id number] ## ## [facility],[address] [place] [address] Clarity (U) sl.cloudy NORMAL: CLEAR Normal 01-21-2020 [facility] ( 68117) Comment: Performed By: #### [id number] ## ## [facility],[address] [place] [address] Color (U) p.yel NORMAL: YELLOW Normal 01-21-2020 [facility] (03846) Comment: Performed By: #### [id number] ## ## [facility],[address] [place] [address] Crystals LM Nom (Urine sed) NONE Normal [facility] ( 45374) Comment: Performed By: #### [id number] ## ## [facility],[address] [place] [address] Epi Cells MANY Normal 01-21-2020 [facility] (45955) Comment: Performed By: #### [id number] ## ## [facility],[address] [place] [address] Glucose [Mass/Vol] NORM NORMAL: NORMAL Normal 2019 [facility] ( 68403) Comment: Performed By: #### [id number] ## ## [facility],[address] [place] [address] Ketone NEG NORMAL: NEGATIVE Normal 01-21-2020 [facility] (46254) Comment: Performed By: #### [id number] ## ## [facility],[address] [place] [address] Mucous NONE Normal 01-21-2020 [facility] (82882) Comment: Performed By: #### [id number] ## ## [facility],[address] [place] [address] Nitrite Ql (U) NEG NORMAL: NEGATIVE Normal 01-21-20 [facility] ( 97811) Comment: Performed By: #### [id number] ## ## [facility],[address] [place] [address] pH (Bld) 5 NORMAL: 5.0-8.0 Normal 01-21-2020 [facility] (81510) Comment: Performed By: #### [id number] ## ## [facility],[address] [place] [address] Protein (U) NEG NORMAL: NEGATIVE mg/dL Normal 01-21-2020 [facility] [Mass/Vol] [facility] (76269) Comment: Performed By: #### [id number] ## ## [facility],[address] [place] [address] Rbc 0-5 0-3 / hpf Normal 01-21-2020 [facility] (08904) Comment: Performed By: #### [id number] ## ## [facility],[address] [place] [address] Sp [place] 1.020 NORMAL: 1.010-1.030 Normal 0 [facility] ( 42654) Comment: Performed By: #### [id number] ## ## [facility],[address] [place] [address] Specimen type Nom (Spec) UNSPECIFIED Normal [facility] ( 18903) Comment: Performed By: #### [id number] ## ## [facility],[address] [place] [address] URINALYSIS WITH MICROSCOPY Normal [facility] (32617) Comment: Result Comment: URINALYSIS Performed By: #### [id number] ## ## [facility],[address] [place] [address] Urobilinog NORM NORMAL: NORMAL Normal 01-21-2020 [facility] (92653) Comment: Performed By: #### [id number] ## ## [facility],[address] [place] [address] Wbc 1-5 0-5 / hpf Normal 01-21-2020 [facility] (07586) Comment: Performed By: #### [id number] ## ## [facility],[address] [place] [address] WBC (Bld) [#/Vol] NEG NORMAL: NEGATIVE 10*3/uL Normal 01-20 [facility] (24445) Comment: Result Comment: URINE MICROS COPIC Performed By: #### [id number] ## ## [facility],[address] [place] [address]74 Yeast LM Ql (Urine sed) NONE Normal 2019 [facility] (81859) Comment: Performed By: #### [id number] ## ## [facility],[address] [place] [address] troponin on 2020-01 Troponin I.cardiac <0.01 0.00 - 0.05 ng/mL Normal 0 [facility] [Mass/Vol] [facility] (82310) Comment: Result Comment: Elevated tro ponin (above [...] as heterophile antibodi es). Performed By: #### [id number] ## ## [facility],[address] [place] [address] tropi on 2020-01-21 Troponin I.cardiac <0.015 0.000-0.040 ng/mL Normal 0 [facility] [Mass/Vol] [facility] ([place]) (92642) Comment: Result Comment: Troponin I r eference ranges (05/22/14): 0.00-0.040 ng/mL Negative an d non-diagnostic. >0.040 ng/mL Consistent with cardiac damage, increased clinical risk and possibility of myocardial in farction. Serial measurements, a rise & fall in test results, clinical histo ry, appropriate symptoms and/or ECG changes may help assess possibility of MN. *Other non-acute coronary sy ndrome conditions such as CHF, myoc arditis, pulmonary emboli, sepsis and cardiac surgery could result in myoc ardial damage and increased troponi n levels. Performed By: #### TROPI ### # [facility] [address] [place] [address] serum qual on 2020-01-21 EXTERNAL QC DONE? YES Normal 01-21-2020 [facility] (12467) Comment: Performed By: #### [id number] ## ## [facility],[address] [place] [address]56 INTERNAL QC PASS Normal 01-21-2020 [facility] (17545) Comment: Performed By: #### [id number] ## ## [facility] [facility] [address] SER NEGATIVE NEGATIVE Normal 01-21-2020 [facility] (20225) Comment: Performed By: #### [id number] ## ## [facility] [facility] [address] d-dimer, quantitative on 2020-01-21 D-DIMER QUANT 256 0 - 230 ng/ml High 01-21-2020 [facility] (11081) Comment: Performed By: #### [id number] ## ## [facility],[address] [place] [address] 81409 D-DIMER, QUANTITATIVE Normal 01-21-20 20 [facility] (80074) Comment: Result Comment: QUANT D-DIME R Performed By: #### [id number] ## ## [facility],[address] [place] [address] brain w/o contrast on 2020-01-21 CT BRAIN W/O [facility] Normal 0 [facility] ospital [address] [place] [address]335 (02277) Patient: SALLY VARGAS Phone#: : 1980 Age: 39 Gender: F Pt. Type: ER Account: [id number] Location: [facility] Ordering: DR. ANA RODRIGUEZ Exam Date: 01/20/2020/23:41 Family Phys: ISABEL ARIAS Charge Code: [id number] Physician: Quay Order #: [id number] DLP Dose#: [id number] PROCEDURE: CT BRAIN WITHOUT CONTRAST COMPARISON: [facility], CT, BRAIN W/O CON, 01/29/2017, 22:39. INDICATIONS: Dizziness. TECHNIQUE: CT images were obtained without contrast material . All CT scans at this [facility] use dose modulation, iterative reconstruction, and/or [...] 39 Gender: F Pt. Type: ER Account: [id number] Location: [facility] Ordering: DR. ANA RODRIGUEZ Exam Date: 01/20/2020/23:41 Family Phys: ISABEL ARIAS Charge Code: [id number] Physician: Quay Order #: [id number] DLP Dose#: [id number] Approved by: Kelsey Mae MD on 01/21/2020 at 18:04 cmp with egfr on 31-01-09 Age - Reported 39 years Normal 01-21-2020 [facility] (03834) Comment: Performed By: #### [id number] ## ## [facility],[address] [place] [address] 85541 Albumin [Mass/Vol] 4.3 3.4 - 4.8 g/dL Normal 01-21-2020 [facility] ( 70408) Comment: Performed By: #### [id number] ## ## [facility],[address] [place] [address] 42626 Albumin/Globulin [Mass 1.5 0.9 - 1.6 {ratio} Normal 020 [facility]] [facility]spital (88824) Comment: Performed By: #### [id number] ## ## [facility],[address] [place] [address] 29908 ALK PHOS 71 38 - 126 U/L Normal 01-21-2020 [facility] (40737) Comment: Performed By: #### [id number] ## ## [facility],[address] [place] [address] 97427 ALT/SGPT 11 8 - 35 U/L Normal 01-21-2020 [facility] (89387) Comment: Performed By: #### [id number] ## ## [facility],[address] [place] [address] 56883 Anion gap [Moles/Vol] 12 10 - 20 mmol/L Normal 01-21-20 20 [facility] ( 76209) Comment: Performed By: #### [id number] ## ## [facility],[address] [place] [address] 26575 AST/SGOT 12 13 - 39 U/L Low 01-21-2020 [facility] (45551) Comment: Performed By: #### [id number] ## ## [facility],[address] [place] [address] 49946 B/C RATIO 19 0 - 30 ratio Normal 01-21-2020 [facility] (46910) Comment: Performed By: #### [id number] ## ## [facility],[address] [place] [address] 05791 Bilirubin [Mass/Vol] 0.3 0.0 - 1.5 mg/dl Normal 0 [facility] ( 61151) Comment: Performed By: #### [id number] ## ## [facility],[address] [place] [address] 65440 Calcium [Mass/Vol] 9.2 8.6 - 10.2 mg/dl Normal 01-21-2020 [facility] ( 38015) Comment: Performed By: #### [id number] ## ## [facility],[address] [place] [address] 15933 Chloride [Moles/Vol] 102 98 - 107 mmol/L Normal 0 [facility] ( 34883) Comment: Performed By: #### [id number] ## ## [facility],[address] [place] [address] 33301 CO2 [Moles/Vol] 25.6 21.0 - 31.0 mmol/L Normal 01-21-[address] [facility] ( 22196) Comment: Performed By: #### [id number] ## ## [facility],[address] [place] [address] 71037 Creatinine [Mass/Vol] 1.1 0.6 - 1.2 mg/dl Normal 01-21-20 20 [facility] ( 25586) Comment: Performed By: #### [id number] ## ## [facility],[address] [place] [address] 00843 GFR/1.73 sq M >60 60 - 999 mL/min/{1.73_m2} Normal 0 [facility] among [facility] non-blacks MDRD (000 00) (S/P/Bld) [Vol [...] OF AGE AND OLDER. Performed By: #### [id number] ## ## [facility],[address] [place] [address] 92221 GFR/1.73 sq M predicted 55 60 - 999 ML/MINUTE Low 2019 [facility] non-blacks MDRD Hospital (24334) (S/P/Bld) [Vol rate/Area] Comment: Performed By: #### [id number] ## ## [facility],[address] [place] [address] 21383 GFR/1.73 sq M predicted among Normal 01-21-2020 [facility] non-blacks MDRD (S/P/Bld) [Vol Hospital (25529) rate/Area] Comment: Result Comment: COMPREHENSIV E METABOLIC PANEL Performed By: #### [id number] ## ## [facility],[address] [place] [address] 82409 Globulin (S) [Mass/Vol] 2.9 1.5 - 3.8 G/DL Normal 2019 [facility] ( 46765) Comment: Performed By: #### [id number] ## ## [facility],[address] [place] [address] 58299 Glucose [Mass/Vol] 100 74 - 106 mg/dl Normal 01-21-2020 [facility] ( 71471) Comment: Performed By: #### [id number] ## ## [facility],[address] [place] [address] [place] [address] Potassium [Moles/Vol] 3.6 3.5 - 5.1 mmol/L Normal 01-21-20 20 [facility] ( 44316) Comment: Performed By: #### [id number] ## ## [facility],[address] [place] [address] [place] [address] Protein [Mass/Vol] 7.2 6.4 - 8.3 g/dl Normal 01-21-2020 [facility] ( 28434) Comment: Performed By: #### [id number] ## ## [facility],[address] [place] [address] [place] [address] Sodium [Moles/Vol] 136 136 - 145 mmol/l Normal 01-21-2020 [facility] ( 64009) Comment: Performed By: #### [id number] ## ## [facility],[address] [place] [address] [place] [address] Urea nitrogen [Mass/Vol] 21 6 - 20 mg/dl High 01-20 [facility] ( 26573) Comment: Performed By: #### [id number] ## ## [facility],[address] [facility] [address] chest 2 views on 31-01-09 CHEST 2 VIEWS [facility] Normal 01-21-20 [facility] ospital [address] [place], [place] [address] (12100) Patient: SALLY VARGAS Phone#: : 1980 Age: 39 Gender: F Pt. Type: ER Account: [id number] Location: [facility] Ordering: DR. ANA RODRIGUEZ Exam Date: 01/20/2020/23:45 Family Phys: ISABEL ARIAS Charge Code: [id number] Physician: Quay Order #: [id number] DLP Dose#: PROCEDURE: X-RAY CHEST 2 VIEWS COMPARISON: [facility], XR, CHEST 2 VIEWS, 11/25/2019, 0:08. INDICATIONS: [...] Erythrocyte distribution 13.6 11.5-15.5 % Normal 01-20 [facility] width (RBC) [Ratio] [facility] ([place]) (13069) Comment: Performed By: #### CBC, ADIF F, ANEU, BMP, GFR #### [facility] [address] [place] [address] 65720 Hematocrit (Bld) [Volume 35.6 34.0-46.0 % Normal 01-20 [facility] fraction] ([place]) (0000 0) Comment: Performed By: #### CBC, ADIF F, ANEU, BMP, GFR #### [place] [address] Hemoglobin (Bld) 11.4 12.0-16.0 G/dL Low 01-21-2020 [facility] [Mass/Vol] ([place]) (000 00) Comment: Performed By: #### CBC, ADIF F, ANEU, BMP, GFR #### [place] [address] MCH (RBC) [Entitic mass] 29.5 27.0-33.0 pg Normal 01-20 [facility] ([place]) (0000 0) Comment: Performed By: #### CBC, ADIF F, ANEU, BMP, GFR #### [place] [address] MCHC (RBC) [Mass/Vol] 32.2 32.0-36.0 G/dL Normal 01-21-20 20 [facility] ([place]) (0000 0) Comment: Performed By: #### CBC, ADIF F, ANEU, BMP, GFR #### [place] [address] MCV (RBC) [Entitic vol] 91.7 80.0-99.0 fL Normal 2019 [facility] ([place]) (0000 0) Comment: Performed By: #### CBC, ADIF F, ANEU, BMP, GFR #### [place] [address] Platelet mean volume 8.6 6.6-10.5 fL Normal 0 [facility] (Bld) [Entitic vol] ([place]) (14048) Comment: Performed By: #### CBC, ADIF F, ANEU, BMP, GFR #### [place] [id number] Platelets (Bld) [#/Vol] 250 150-450 10 3/mcL Normal 2019 [facility] ([place]) (89306) Comment: Performed By: #### CBC, ADIF F, ANEU, BMP, GFR #### [address] [address] RBC (Bld) [#/Vol] 3.88 4.10-5.30 10 6/mcL Low 01-21-2020 A [facility] ([place]) (0000 0) Comment: Performed By: #### CBC, ADIF F, ANEU, BMP, GFR #### [address] [address] WBC (Bld) [#/Vol] 6.20 4.50-10.80 10 3/mcL Normal 01-21-2020 [facility] ([place]) (31410) Comment: Performed By: #### CBC, ADIF F, ANEU, BMP, GFR #### [address] [address] cbc + diff on 01-20 Basophils (Bld) 0.10 0.00 - 0.10 x10EE3/UL Normal 01-21-2020 [facility] [#/Vol] [facility] (75007) Comment: Performed By: #### [id number] ## ## [facility],[address] [place] [address] 37545 Basophils/100 WBC (Bld) 1.1 0.0 - 2.0 % Normal 2019 [facility] ( 18403) Comment: Performed By: #### [id number] ## ## [facility],[address] [place] [address] 19746 CBC + DIFF Normal 01-21-2020 [facility] (98897) Comment: Result Comment: CBC-COMPLETE BLOOD COUNT Performed By: #### [id number] ## ## [facility],[address] [place] [address] 86347 Eosinophils (Bld) 0.40 0.00 - 0.50 x10EE3/UL Normal 01-21-2020 [facility] [#/Vol] [facility] (51224) Comment: Performed By: #### [id number] ## ## [facility],[address] [place] [address] 50053 Eosinophils/100 WBC (Bld) 5.5 0.0 - 7.0 % Normal 0 [facility] ( 22889) Comment: Performed By: #### [id number] ## ## [facility],[address] [place] [address] 55875 Erythrocyte distribution 13.5 12.0 - 15.6 % Normal [facility] width (RBC) [Ratio] Hospital (81842) Comment: Performed By: #### [id number] ## ## [facility],[address] [place] [address] Hematocrit (Bld) [Volume 33.8 34.0 - 46.0 % Low [facility] fraction] [facility] ( 36643) Comment: Performed By: #### [id number] ## ## [facility],[address] [place] [address] 90822 Hemoglobin (Bld) 11.7 12.0 - 16.0 g/dl Low 01-21-2020 [facility] [Mass/Vol] [facility] (54655) Comment: Performed By: #### [id number] ## ## [facility],[address] [place] [address] 07462 Lymphocytes (Bld) 2.30 0.80 - 2.80 x10EE3/UL Normal 01-21-2020 [facility] [#/Vol] [facility] ospital (32446) Comment: Performed By: #### [id number] ## ## [facility],[address] [place] [address] 48708 Lymphocytes/100 WBC (Bld) 30.4 20.0 - 45.0 % Normal [facility] ( 12013) Comment: Performed By: #### [id number] ## ## [facility],[address] [place] [address] 21515 MANUAL DIFF N/A Normal 01-21-2020 [facility] (90519) Comment: Performed By: #### [id number] ## ## [facility],[address] [place] [address] 89441 MCH (RBC) [Entitic mass] 31 27 - 33 pg Normal 01-20 [facility] ( 55482) Comment: Performed By: #### [id number] ## ## [facility],[address] [place] [address] 40063 MCHC (RBC) [Mass/Vol] 35 32 - 36 X10 3 Normal 01-21-20 20 [facility] ( 96655) Comment: Performed By: #### [id number] ## ## [facility],[address] [place] [address] 98639 MCV (RBC) [Entitic vol] 88 80 - 99 fl Normal 2019 [facility] ( 85015) Comment: Performed By: #### [id number] ## ## [facility],[address] [place] [address] 46105 Monocytes (Bld) 0.50 0.20 - 1.00 x10EE3/UL Normal 01-21-2020 [facility] [#/Vol] [facility] (51453) Comment: Performed By: #### [id number] ## ## [facility],[address] [place] [address] 14556 MONOS % 6.5 0.0 - 10.0 % Normal 01-21-2020 [facility] (54990) Comment: Performed By: #### [id number] ## ## [facility],[address] [place] [address] 20367 Morphology Adrian (Bld) [Interp] N/A Normal 01-21-2020 [facility] ( 17586) Comment: Performed By: #### [id number] ## ## [address] [address] Neutrophils (Bld) 4.30 1.50 - 7.10 x10EE3/UL Normal 01-21-2020 [facility] [#/Vol] [facility] (96383) Comment: Performed By: #### [id number] ## ## [facility],[address] [place] [address] 27453 Neutrophils/100 WBC (Bld) 56.5 46.0 - 76.0 % Normal [facility] ( 98623) Comment: Performed By: #### [id number] ## ## [facility],[address] [place] [address] 33804 Platelet mean volume 8.3 6.6 - 10.5 fl Normal 01-21-20 [facility] (Bld) [Entitic vol] [facility] (49533) Comment: Result Comment: AUTOMATED DI FFERENTIAL Performed By: #### [id number] ## ## [facility],[address] [place] [address] 16758 Platelets (Bld) 298 150 - 450 x10EE3/UL Normal 01-21-2020 [facility] [#/Vol] [facility] (90462) Comment: Performed By: #### [id number] ## ## [facility],[address] [place] [address] 08049 RBC (Bld) [#/Vol] 3.82 4.10 - 5.30 x 10EE6/UL Low 0 [facility] ( 61133) Comment: Performed By: #### [id number] ## ## [facility],[address] [place] [address] 70181 WBC (Bld) [#/Vol] 7.6 4.5 - 10.8 x 10EE3/UL Normal 01-21-2020 [facility] ( 79163) Comment: Performed By: #### [id number] ## ## [facility],[address] [place] [address] 82040 bmp on 2020-01-21 Creatinine [Mass/Vol] 0.96 0.50-1.20 mg/dL Normal 01-21-20 20 [facility] ([place]) (52939) Comment: Performed By: #### CBC, ADIF F, ANEU, BMP, GFR #### [address] [address] Urea nitrogen/Creatinine 18.8 10.0-22.0 ratio Normal 01-20 [facility] [Mass ratio] [facility] ([place]) (94715) Comment: Performed By: #### CBC, ADIF F, ANEU, BMP, GFR #### [address] [address] Calcium [Mass/Vol] 8.7 8.4-10.1 mg/dL Normal 01-21-2020 [facility] ([place]) (0000 0) Comment: Performed By: #### CBC, ADIF F, ANEU, BMP, GFR #### [address] [address] Chloride [Moles/Vol] 108 98-110 mEq/L Normal 0 [facility] ([place]) (0000 0) Comment: Performed By: #### CBC, ADIF F, ANEU, BMP, GFR #### [address] [address] CO2 [Moles/Vol] 26 22-32 mEq/L Normal 01-21-2020 [facility] ([place]) (06406) Comment: Performed By: #### CBC, ADIF F, ANEU, BMP, GFR #### [address] [address] Electrolyte Balance 4.0 4.0-15.0 mEq/L Normal 01-21-2020 [facility] ([place]) (0000 0) Comment: Performed By: #### CBC, ADIF F, ANEU, BMP, GFR #### [address] [address] Glucose [Mass/Vol] 85 70-110 mg/dL Normal 01-21-2020 [facility] ([place]) (89512) Comment: Performed By: #### CBC, ADIF F, ANEU, BMP, GFR #### [address] [address] Potassium [Moles/Vol] 4.1 3.5-5.0 mEq/L Normal 01-21-20 20 [facility] ([place]) (0000 0) Comment: Performed By: #### CBC, ADIF F, ANEU, BMP, GFR #### [address] [address] Sodium [Moles/Vol] 138 136-145 mEq/L Normal 01-21-2020 [facility] ([place]) (95787) Comment: Performed By: #### CBC, ADIF F, ANEU, BMP, GFR #### [address] [address] Urea nitrogen [Mass/Vol] 18.0 8.0-22.0 mg/dL Normal 01-20 [facility] ([place]) (65201) Comment: Performed By: #### CBC, ADIF F, ANEU, BMP, GFR #### [address] [address] .neuabs on Neutrophils (Bld) 3.50 2.25-8.10 10 3/mcL Normal 01-21-2020 [facility] [#/Vol] [facility] ([place]) (42504) Comment: Performed By: #### CBC, ADIF F, ANEU, BMP, GFR #### [address] [address] .gfr on 2020-01-21 GFR Non- >60 Normal 01-20 [facility] ([place]) (41902) Comment: Result Comment: GFR Population mean for Afri can [place]ib[place]ian, Non- Americans Ages 20-29 = 116 mL/min/1.73 [...] CBC, ADIF F, ANEU, BMP, GFR #### [address] [address] GFR >60 Normal 0 [facility] ([place]) (54672) Comment: Result Comment: GFR Population mean for Afri can [place]ian, Non- Americans Ages 20-29 = 116 mL/min/1.73 [...] CBC, ADIF F, ANEU, BMP, GFR #### [place] [address] .auto diff on 01-20 Ammonia (P) [Mass/Vol] 0.40 0.09-1.40 10 3/mcL Normal 020 [facility] ([place]) (85073) Comment: Performed By: #### CBC, ADIF F, ANEU, BMP, GFR #### [place] [address] Basophils (Bld) 0.00 0.00-0.27 10 3/mcL Normal 01-21-[address] [facility] [#/Vol] [facility] ([place]) (48117) Comment: Performed By: #### CBC, ADIF F, ANEU, BMP, GFR #### [address] [address] Basophils/100 WBC (Bld) 0.5 0.0-2.5 % Normal 2019 [facility] ([place]) (0000 0) Comment: Performed By: #### CBC, ADIF F, ANEU, BMP, GFR #### [address] [address] Eosinophils (Bld) 0.30 0.00-0.65 10 3/mcL Normal 01-21-2020 [facility] [#/Vol] [facility] ([place]) (17067) Comment: Performed By: #### CBC, ADIF F, ANEU, BMP, GFR #### [address] [address] Eosinophils/100 WBC (Bld) 5.4 0.0-6.0 % Normal 05-0 -2019 [facility] ([place]) (0000 0) Comment: Performed By: #### CBC, ADIF F, ANEU, BMP, GFR #### [address] [address] Lymphocytes (Bld) 2.00 0.90-4.32 10 3/mcL Normal 01-21-2020 [facility] [#/Vol] [facility] ([place]) (57236) Comment: Performed By: #### CBC, ADIF F, ANEU, BMP, GFR #### [address] [address] Lymphocytes/100 WBC (Bld) 32.4 20.0-40.0 % Normal - [facility] ([place]) (47359) Comment: Performed By: #### CBC, ADIF F, ANEU, BMP, GFR #### [address] [address] Monocytes/100 WBC (Bld) 6.1 2.0-13.0 % Normal 2019 [facility] ([place]) (0000 0) Comment: Performed By: #### CBC, ADIF F, ANEU, BMP, GFR #### [address] [address] Neutrophils/100 WBC (Bld) 55.6 50.0-75.0 % Normal 05-0 [facility] ([place]) (50572) Comment: Performed By: #### CBC, ADIF F, ANEU, BMP, GFR #### [address] [address] cnpn on 2020-01-20 CNPN Telephone (FAMPWS) Normal 01-20-2020 [facility] ABDIFATAHSALLY TORRES ([id number]) 1980 [facility] Date Time Provider Department (22384) 01/20/20 MARCELINO MEJIA During your visit today, we recorded the following informati on about you: Christopher Carcamo RN 01/20/2020 11:54 AM Signed Patient asking if Chaz Stroud, would sent AB Rx to [place], for her bad tooth? Her dentist in [place] is not open. Has an appt with a dentist in [place] on . Has a wound on tongue [...] rx to [place]. Asked for directions to [facility] for her ultrasound appt, [...] 01/20/20 progress on 2020-01 PROGRESS HNO ID: [id number] Normal 01-16-2020 [facility] Author: Isabel Romero) Hugo Lara ([id number]) Service: ? Author Type: Physician Nurses' Registry Director Type: Progress Notes Filed: 01/16/2020 1:43 [...] She c/o of daily. Attempted to call [facility] who had 1 visit with [...] negative As noted in HPI PHYSICAL EXAMINATION: [facility] 08/10/2006 Deferred physical exam as [...] testing. Recommend that she discuss with her analysis specialist. In mean time will order stress testing [...] patient = 21-30 minutes cnpn on 2020-01-16 [facility]) Normal 01-16-2020 [facility] SALLY VARGAS ([id number]) 1980 [facility] Date Time Provider Department (67135) 01/16/20 [facility]EL ARIAS) [facility] During your visit today, we recorded the following informati on about you: Sallie Benitez LPN 01/16/2020 1:47 PM Addendum Sallie Benitez LPN 01/16/2020 1:47 PM Addendum Allergies As of Date: 01/16/2020 Noted Allergy Reaction ASA (SALICYLATES) 01/27/2011 14 - Other: See Comments Comments: ulcers CONTRAST DYE (IODINE) 05/17/2008 12 - Shortness of Breath FLAGYL (METRONIDAZOLE HCL) 03/11/2010 12 - Shortness of [place] th IBUPROFEN 06/18/2016 8 - GI Upset [...] on 01/16/20 CNPN Telephone (FAMPWS) Normal 01-16-2020 [facility] [facility] SALLY VARGAS ([id number]) 1980 [place] Date Time Provider Department (42185) 01/16/20 ISABEL ARIAS) [facility] During your visit today, we recorded [...] ibuprofen for pain. Follow-up with her [facility] care physician within the next 3 to [...] Chest pain This note was generated with [employer] dictation software. It m ay contain incorrect [...] on 2020-01-11 CNPN Telephone (FAMWS) Normal 01-11-2020 [facility] SALLY VARGAS ([id number]) 1980 [facility] Date Time Provider Department (30560) 01/11/20 [facility]JIA [facility] During your visit today, we recorded [...] (METRONIDAZOLE HCL) 03/11/2010 12 - Shortness of [place] th IBUPROFEN 06/18/2016 8 - GI Upset PENICILLINS 12/07/2009 2 - Rash PREDNISONE 06/18/2016 14 - Other: See Comments Comments: makes agitated and mean Date Reviewed: 01/02/2020 Reviewed by: Ashley Lehman Ma - Fully Assessed Reason for Visit: Patient Question [0357] Reason For Visit History Recorded Prescriptions as [...] on 2020-01-09 CNPN Telephone (FAMPWS) Normal 01-09-2020 [place] SALLY [id number]) 1980 [facility] Date Time Provider Department (47667) 01/09/20 ISABEL ARIAS) RAMA During your visit [...] when taken with s eroquel 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 See if she is willing to try this combination of vitam ins until she sees Dr. Saldana. Magnesium 250MG twice a day Vit B2 200mg twice a day. Fish oil 1000mg twice a day And a liter of water daily. This combination is something dr. mejia and I recommend to a lot of our headache/migraine sufferers and has had good results from [facility]. MAYA Delgado Ma 01/09/2020 11:49 AM [...] Encounter Status:Closed by ISABEL WARE on 01/09/20 [facility]) Normal 01-09-2020 [place] SALLY Martinez ([id number]) 1980 [facility] Date Time Provider Department (88169) 01/09/20 [facility] During your visit today, we recorded [...] flexeril. Patien t says she cannot take [place] because she is on ok Seroquel and [...] because of her insurance . She tried [place] because they accepted her insurance but they [...] by ER or UC, then at [facility] they can see/check for signs of worsening [...] she has called every dentist office in [place] and now [place] and no one takes her insurance. She said she called her insurance and they told her the only one was the one in [place]. I told her if her infection is that bad she needs to go back to ER for further evaluation. Patient then just keep saying I have no way of getting there; no family can take her; she has no money to pay to get there. Patient ended call. I did call Dr. Evans's office oral surgeon [phone] and they are open from 8-3 after [...] * * *Final Report* * * Normal [facility] AP/LAT DATE OF EXAM: Jan 06 2020 12:58PM [place] ([id number]) WOX 5262 - XR THORACIC 2V AP/LAT [...] delon destructive process. IMPRESSION: Negative thoracic spine. Trim Technician: [facility] Transcribe Date/Time: Jan 06 2020 1:02P Dictated by : NIDA VILLALOBOS MD This examination was interpreted and the report reviewed and electronically signed by: NIDA VILLALOBOS MD on Jan 06 2020 1:07PM EST [id number] xr cervical 3v ap/lat/odon on 2020-01-06 XR CERVICAL 3V * * *Final Report* * * Normal [facility] AP/LAT/ODON DATE OF EXAM: Jan 06 2020 12:58PM [place] WOX 5309 - XR CERVICAL 3V AP/LAT/ODON / 3 ([id number]) PROCEDURE REASON: Fall, initial encounter * * [...] tissues are normal. IMPRESSION: Negative cervical spine. Trim Technician: [facility] Transcribe Date/Time: Jan 06 2020 1:00P Dictated by : NIDA VILLALOBOS MD This examination was interpreted and the report reviewed and electronically signed by: NIDA VILLALOBOS MD on Jan 06 2020 1:04PM EST [id number] progress on 2019-12 PROGRESS HNO ID: [id number] Normal 01-06-2020 [facility] Author: Vianey Sanchez (Tech) [place] ([id number]) Service: ? Author Type: Housekeeping Lead Type: Progress Notes Filed: 01/06/2020 12:58 PM [...] on 2020-01-06 CNPN Telephone (ASHIAWS) Normal 01-06-2020 [place] [facility] SALLY VARGAS ([id number]) 1980 [facility] Date Time Provider Department ([id number]) 01/06/20 MARCELINO MEJIAWS During your visit today, we recorded the following informati on about you: Deepa Salvador LPN, DAVID 01/06/2020 11:41 AM Signed Pt calls states fell a day ago and went to [facility] they gave h er 10 vicodin, [...] encounter [W19.XXXA] Order(s):XR THORACIC LIMITED 2V AP/LAT [[id number]] Order #: [id number] FUTURE XR CERV INJURY 3V AP/LAT/ODON [[id number]] Order #: [id number] FUTURE Prescriptions as of 01/06/2020 Sig: SERTRALINE [...] on 01/06/20 CNPN Telephone (FAMWS) Normal 01-06-2020 [place] [facility] SALLY VARGAS ([id number]) 1980 [facility] Time Provider Department (87897) 01/06/20 MARCELINO MEJIA During your visit today, [...] 01/06/20 progress on 2019-12 PROGRESS HNO ID: [id number] Normal 01-05-2020 [facility] Author: Isabel Romero) Hugo Lara ([id number]) Service: ? Author Type: Physician Nurses' Registry Director Type: Progress Notes Filed: 01/05/2020 8:07 [...] to cancel due to no r kostas. [facility] has appointment rescheduled on january 19. [...] minutes progress on 2019-12 PROGRESS HNO ID: [id number] Normal 01-02-2020 [facility] Author: Marie Mary) [facility] ([id number]) Service: ? Author Type: Nurse Practitioner Type: [...] Benign liver cyst 05/24/2010 CT scan at [facility] 11/2009 and 04/2010 showe 4 mm increase in size . No pain. No elevated LFTs on 03/11/2010. - Calculus of kidney 05/17/[address] Nicolas: Hospitalized age 20, and again later -- no procedures so far ([facility], most, 1995 [facility]) - Dysmenorrhea - Impaired fasting glucose [...] Approx. 3 cigarettes daily-1 pack every w [place] Substance Use Topics - Alcohol use: Yes [...] 2020-01-02 CNOV Office Visit (UCWSTR) Normal 01-02-20 [place] SALLY Martinez ([id number]) 1980 [facility] Date Time Provider Department ([id number]) 01/02/20 2:45 PM MARIE PINEDO (MANUELITO) WSTR [...] Benign liver cyst 05/24/2010 CT scan at [facility] 11/2009 and 04/2010 showe 4 mm increase in size . No pain. No elevated LFTs on 03/11/2010. - Calculus of kidney 05/17/[address] Nicolas: Hospitalized age 20, a nd again later -- no procedures so far ([facility], [facility], 1995 [facility]) - Dysmenorrhea - Impaired fasting glucose [...] removed - TOTAL ABDOM HYSTERECTOMY 08/31/06 Hysterectomy, [facility] Asa [Salicylates]; Contrast Dye [Iodine]; Flagyl [...] Approx. 3 cigarettes daily-1 pack every w [place] Substance Use Topics - Alcohol use: Yes [...] MG CAPSULE Agrees to plan Marie Pinedo APRN.MATERIAL CONTROL CLERK Referring Provider: SELF [[id number]] Allergies As of [...] PINEDO CNP on 01/02/20 cnpn on 2019-12-23 [facility] Normal 12-23-2019 [place] [facility] SALLY VARGAS ([id number]) 1980 [place] Date Time Provider Department (79543) 12/23/19 ISABEL ARIAS) RAMA During your visit [...] not helping cough. Please advise and call [phone]. [place] ISABEL ARIAS PA-C 12/23/2019 1:02 PM Signed [...] * *Final Report* * * Normal 12-21 [facility] FRONTAL/LAT DATE OF EXAM: Dec 22 2019 9:28AM [place] WOX 5291 - XR CHEST 2V FRONTAL/LAT / ([id number]) PROCEDURE REASON: multiple diagnoses * * * [...] clips noted. IMPRESSION: No acute radiographic abnormality. Trim Technician: PSCB Transcribe Date/Time: Dec 22 2019 9:29A Dictated by : NIDA VILLALOBOS MD This examination was interpreted and the report reviewed and electronically signed by: NIDA VILLALOBOS MD on Dec 22 2019 9:51AM EST [id number] progress on 2019-12 PROGRESS HNO ID: [id number] Normal 12-22-2019 [facility] Author: Vianey Roman (Rt) [place] ([id number]) Service: ? Author Type: Housekeeping Lead Type: Progress Notes Filed: 12/22/2019 9:28 AM [...] 22, 2019 9:18 AM cnpn on 2019-12-22 [facility]FAMPWS) Normal 12-22-2019 [place] [facility] SALLY VARGAS ([id number]) 1980 [facility] Time Provider Department (29960) 12/22/19 [facility] ARIAS[facility] During your visit today, we recorded the following informati on about you: ISABEL ARIAS PA-C 12/22/2019 9:56 AM Signed Let patient know that xray is negative. Recommend cont inuing as we discussed yesterday. MAYA Delgado Senior Logistics Manager 12/22/2019 10:42 AM Signed Patient notified and verbalized understanding Ashley Mcfarland Senior Logistics Manager Allergies As of Date: 12/22/2019 Noted Allergy [...] 12/22/19 progress on 2019-12 PROGRESS HNO ID: [id number] Normal 12-21-2019 [facility] Author: Isabel Romero) Hugo Lara ([id number]) Service: ? 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 Patient said the pe rles help she does not cough, she tries eating first and still makes her nauseated. Patient uses [facility] for her pharmacy. Please advise ISABEL ARIAS [...] Status:Closed by MILKA VILLARREAL MA on 12/15/19 [facility] on 2019-12-14 [facility] (INTMWS) Normal 12-14-2019 [place] [facility] SALLY VARGAS ([id number]) 1980 [facility] Date Time Provider Department (66064) 12/14/19 ISABEL ARIAS (MAYA) INTMWS During your visit today, we recorded the following informati on about you: Gale Fuentes LPN 12/14/2019 10:15 AM Signed Patient took 1 dose of Robitussin AC, di d help suppress cough but developed an itchy/rash. Asking if something else can be called in to [facility]. Patient uses [facility]. Please notify Patient. Gale [...] on 12/14/19 CNPN Telephone (FAMPWS) Normal 12-14-2019 [place] [facility] SALLY VARGAS ([id number]) 1980 [facility] Date Time Provider Department (73884) 12/14/19 ISABEL ARIAS) RAMA During your visit [...] (METRONIDAZOLE HCL) 03/11/2010 12 - Shortness of [place] th IBUPROFEN 06/18/2016 8 - GI Upset [...] 12/14/19 progress on 2019-11 PROGRESS HNO ID: [id number] Normal 12-13-2019 [facility] Author: Isabel (PaRex) Hugo Lara ([id number]) Service: ? Author Type: Physician Nurses' Registry Director Type: Progress Notes Filed: 12/13/2019 10:36 [...] Benign liver cyst 05/24/2010 CT scan at [facility] 11/2009 and 04/2010 showe 4 mm increase in size . No pain. No elevated LFTs on 03/11/2010. - Calculus of kidney 05/17/[address] Nicolas: Hospitalized age 20, and again later -- no procedures so far ([facility], [facility], 1995 [facility]) - Dysmenorrhea - Impaired fasting glucose [...] Approx. 3 cigarettes daily-1 pack every w [place] Substance Use Topics - Alcohol use: Yes [...] (COVID-19). emergency report on 2019-11-26 [facility] Normal 11-25 [facility] EMERGENCY ROOM REPORT ([id number]) NAME ACCOUNT SEX AGE ADMIT DISCHARGE PT MED. RECORD# NUMBER DATE DATE HIEU VARGAS [id number] Donato 39 11/24/19 11/25/19 [place] ZHENG [id number] ROOM: ER DATE OF : 1980 DICTATING [...] for review of her constipation regimen at [facility]. She verbalized understanding of the informa tion given and agreed to plan. She was discharged in stable condition. Dictated By: Ana Rodriguez MD 11/25/19 05:37 JOB #: [id number] Transcribed By: nallely 11/25/19 22:11 Electronically signed by: Jennifer Perez MD 11/25/19 22:39 Page 2 of 2 SALLY VARGAS Emergency Room Report urinalysis with microscopy on 2019-11-25 Amorphous NONE Normal 11-25-2019 [facility] (81128) Comment: Performed By: #### [id number] ## ## [facility],[address] [place] [address] 48353 Bacteria LM.HPF (Urine sed) 4+ Normal [facility] [#/Area] [facility] ( 23450) Comment: Performed By: #### [id number] ## ## [facility],[address] [place] [address] 26306 Bilirubin [Mass/Vol] NEG NORMAL: NEGATIVE mg/dL Normal [facility]spital (48815) Comment: Performed By: #### [id number] ## ## [facility],[address] [place] [address] 10261 Blood 10 NORMAL: NEGATIVE Abnormal 11-25-2019 [facility] (07125) Comment: Performed By: #### [id number] ## ## [facility],[address] [place] [address] 53707 Casts LM.LPF (Urine sed) NONE Normal 11-24 [facility] [/Area] [facility] ( 54660) Comment: Performed By: #### [id number] ## ## [facility],[address] [place] [address] 23792 Clarity (U) sl.cloudy NORMAL: CLEAR Normal 11-25-2019 [facility] ( 26101) Comment: Performed By: #### [id number] ## ## [facility],[address] [place] [address] 82839 Color (U) p.yel NORMAL: YELLOW Normal 11-25-2019 [facility] (22118) Comment: Performed By: #### [id number] ## ## [facility],[address] [place] [address] 02668 Crystals LM Nom (Urine sed) NONE Normal [facility] ( 80750) Comment: Performed By: #### [id number] ## ## [facility],[address] [place] [address] 23088 Epi Cells MANY Normal 11-25-2019 [facility] (30895) Comment: Performed By: #### [id number] ## ## [facility],[address] [place] [address] 65640 Glucose [Mass/Vol] NORM NORMAL: NORMAL Normal 2019 [facility] ( 61016) Comment: Performed By: #### [id number] ## ## [facility],[address] [place] [address] 27337 Ketone NEG NORMAL: NEGATIVE Normal 11-25-2019 [facility] (69922) Comment: Performed By: #### [id number] ## ## [facility],[address] [place] [address] 65162 Mucous NONE Normal 11-25-2019 [facility] (35303) Comment: Performed By: #### [id number] ## ## [facility],[address] [place] [address] 40445 Nitrite Ql (U) NEG NORMAL: NEGATIVE Normal 11-25-19 20 [facility] ( 31969) Comment: Performed By: #### [id number] ## ## [facility],[address] [place] [address] 71768 pH (Bld) 5 NORMAL: 5.0-8.0 Normal 11-25-2019 [facility] (35104) Comment: Performed By: #### [id number] ## ## [facility],[address] [place] [address] 77412 Protein (U) NEG NORMAL: NEGATIVE mg/dL Normal 11-25-2019 [facility] [Mass/Vol] [facility] (37622) Comment: Performed By: #### [id number] ## ## [facility],[address] [place] [address] 43474 Rbc 0-5 0-3 / hpf Normal 11-25-2019 [facility] (52738) Comment: Performed By: #### [id number] ## ## [facility],[address] [place] [address] 05794 Sp [place] 1.010 NORMAL: 1.010-1.030 Normal 0 [facility] ( 48259) Comment: Performed By: #### [id number] ## ## [facility],[address] [place] [address] 98037 Specimen type Nom (Spec) UNSPECIFIED Normal [facility] ( 42668) Comment: Performed By: #### [id number] ## ## [facility],[address] [place] [address] 22881 URINALYSIS WITH MICROSCOPY Normal [facility] (40657) Comment: Result Comment: URINALYSIS Performed By: #### [id number] ## ## [facility] [facility] 12977 Urobilinog NORM NORMAL: NORMAL Normal 11-25-2019 [facility] (96344) Comment: Performed By: #### [id number] ## ## [facility] [facility] 88682 Wbc 1-5 0-5 / hpf Normal 11-25-2019 [facility] (83485) Comment: Performed By: #### [id number] ## ## [facility],[address] [place] [address] 96529 WBC (Bld) [#/Vol] 25 NORMAL: NEGATIVE Abnormal 11-24 [facility] ( 00110) Comment: Result Comment: URINE MICROS COPIC Performed By: #### [id number] ## ## [facility],[address] [place] [address] 03259 Yeast LM Ql (Urine sed) NONE Normal 2019 [facility] (10813) Comment: Performed By: #### [id number] ## ## [facility],[address] [place] [address] 35009 lipase on 2019-11-13 3 Lipase [Catalytic 34.0 18.0 - 51.0 U/L Normal 11-25-2019 [facility] activity/Vol] [facility] (27696) Comment: Performed By: #### [id number] ## ## [facility],[address] [place] [address] 84180 lactate on Lactate [Moles/Vol] 0.9 0.5 - 2.0 mmol/L Normal 11-25-2019 [facility] ( 06886) Comment: Performed By: #### [id number] ## ## [facility],[address] [place] [address] abdomen/pelvis wo on 2019-11-25 CT ABDOMEN/PELVIS [facility] Normal 0 11-25-2019 [facility]spital [address] [address] ([id number]) Patient: SALLY VARGAS Phone#: : 1980 Age: 39 Gender: F Pt. Type: ER Account: [id number] Location: 2 Ordering: DR. ANA RODRIGUEZ Exam Date: 11/25/2019/0:04 Family Phys: ISABEL ARIAS Charge Code: [id number] Physician: Quay Order #: [id number] DLP Dose#: PROCEDURE: CT ABDOMEN/PELVIS WITHOUT CONTRAST COMPARISON: [facility], CT, ABDOMEN/PELVIS W/O CON, 03/22/2019, 16:41. [...] 39 Gender: F Pt. Type: ER Account: [id number] Location: 052 Ordering: DR. ANA RODRIGUEZ Exam Date: 11/25/2019/0:04 Family Phys: ISABEL ARIAS Charge Code: [id number] Physician: Quay Order #: [id number] DLP Dose#: ABDOMINAL WALL: There is a [...] on 11/25/2019 at 10:46 cnpn on 2019-11-25 [facility] (FAMP[facility]) Normal 11-25-2019 [place] [facility] SALLY VARGAS ([id number]) 1980 [facility] Time Provider Department (57952) 11/25/19 JAY ARIAS) [facility] During your visit today, we recorded [...] Age - Reported 39 years Normal 11-25-2019 [facility] (09779) Comment: Performed By: #### [id number] ## ## [address] [address] Albumin [Mass/Vol] 4.5 3.4 - 4.8 g/dL Normal 11-25-2019 [facility] ( 17610) Comment: Performed By: #### [id number] ## ## [facility],[address] [place] [address] 47538 Albumin/Globulin [Mass 1.3 0.9 - 1.6 {ratio} Normal 020 [facility]] [facility] (96896) Comment: Performed By: #### [id number] ## ## [facility] [facility] [address]115 ALK PHOS 93 38 - 126 U/L Normal 11-25-2019 [facility] (04828) Comment: Performed By: #### [id number] ## ## [facility] 81955 ALT/SGPT 10 8 - 35 U/L Normal 11-25-2019 [facility] (71600) Comment: Performed By: #### [id number] ## ## [facility] [address]47 Anion gap [Moles/Vol] 13 10 - 20 mmol/L Normal 11-25-19 20 [facility] ( 49494) Comment: Performed By: #### [id number] ## ## [facility] 01421 AST/SGOT 9 13 - 39 U/L Low 11-25-2019 [facility] (79515) Comment: Performed By: #### [id number] ## ## [facility],[address] [place] [address] 61068 B/C RATIO 17 0 - 30 ratio Normal 11-25-2019 [facility] (84257) Comment: Performed By: #### [id number] ## ## [facility] [facility] [address]12 Bilirubin [Mass/Vol] 0.4 0.0 - 1.5 mg/dl Normal 0 [facility] ( 22264) Comment: Performed By: #### [id number] ## ## [facility],[address],[place] [address] Calcium [Mass/Vol] 9.9 8.6 - 10.2 mg/dl Normal 11-25-2019 [facility] ( 94364) Comment: Performed By: #### [id number] ## ## [facility] 60871 Chloride [Moles/Vol] 103 98 - 107 mmol/L Normal 0 [facility] ( 06343) Comment: Performed By: #### [id number] ## ## [facility],[address] [facility] 64085 CO2 [Moles/Vol] 24.9 21.0 - 31.0 mmol/L Normal 11-25-[address] [facility] ( 20631) Comment: Performed By: #### [id number] ## ## [facility],[address] [place] [address] 46409 Creatinine [Mass/Vol] 1.0 0.6 - 1.2 mg/dl Normal 11-25-19 20 [facility] ( 58791) Comment: Performed By: #### [id number] ## ## [facility],[address] [place] [address] 54494 GFR/1.73 sq M predicted among Normal 11-25-2019 [facility] non-blacks MDRD (S/P/Bld) [Vol Hospital (00270) rate/Area] Comment: Result Comment: COMPREHENSIV E METABOLIC PANEL Performed By: #### [id number] ## ## [facility],[address] [place] [address] 61420 GFR/1.73 sq M >60 60 - 999 mL/min/{1.73_m2} Normal 0 [facility] predicted among [facility] non-blacks MDRD (000 00) (S/P/Bld) [Vol rate/Area] Comment: Performed By: #### [id number] ## ## [facility],[address] [place] [address] 24819 Result Comment: ACCORDING TO THE NATIONAL KIDNEY [...] 3.5 1.5 - 3.8 G/DL Normal 2019 [facility] ( 90743) Comment: Performed By: #### [id number] ## ## [facility],[address] [place] [address] 79500 Glucose [Mass/Vol] 123 74 - 106 mg/dl High 11-25-2019 [facility] (09092) Comment: Performed By: #### [id number] ## ## [facility],[address] [place] [address] 92898 Potassium [Moles/Vol] 3.6 3.5 - 5.1 mmol/L Normal 11-25-19 [facility] ( 43855) Comment: Performed By: #### [id number] ## ## [facility],[address] [place] [address] [place] [address] Protein [Mass/Vol] 8.0 6.4 - 8.3 g/dl Normal 11-25-2019 [facility] ( 27162) Comment: Performed By: #### [id number] ## ## [facility],[address] [place] [address] 44721 Sodium [Moles/Vol] 137 136 - 145 mmol/l Normal 11-25-2019 [facility] ( 97677) Comment: Performed By: #### [id number] ## ## [facility],[address] [place] [address] 00089 Urea nitrogen [Mass/Vol] 17 6 - 20 mg/dl Normal 11-24 [facility] ( 51193) Comment: Performed By: #### [id number] ## ## [facility],[address] [place], [place] [id number] chest 2 views on 20 01-12-12 CHEST 2 VIEWS [facility] Normal 11-25-19 [facility] [address] [place] [address] (92008) Patient: SALLY VARGAS Phone#: : 1980 Age: 39 Gender: F Pt. Type: ER Account: [id number] Location: [facility] Ordering: DR. ANA RODRIGUEZ Exam Date: 11/25/2019/0:08 Family Phys: ISABEL ARIAS Charge Code: [id number] Physician: Quay Order #: [id number] DLP Dose#: PROCEDURE: X-RAY CHEST 2 VIEWS COMPARISON: [facility], XR, CHEST PA/LAT, 05/12/2017, 16:14. INDICATIONS: [...] on 11-24 CELL COUNT 100 Normal 11-25-2019 [facility] (94798) Comment: Performed By: #### [id number] ## ## [facility],[address] [place], [place] [id number] EO 1.0 0.0 - 4.0 % Normal 11-25-2019 [facility] (07410) Comment: Performed By: #### [id number] ## ## [facility],[address] [place] [address] SEGS 59 50 - 70 % Normal 11-25-2019 [facility] (97554) Comment: Performed By: #### [id number] ## ## [facility],[address] [place] [address] 82706 CBC + DIFF Normal 11-25-2019 [facility] (60080) Comment: Result Comment: CBC-COMPLETE BLOOD COUNT Performed By: #### [id number] ## ## [facility],[address] [place] [address] 90372 Erythrocyte distribution 13.4 12.0 - 15.6 % Normal [facility] (RBC) [Ratio] Hospital (33019) Comment: Performed By: #### [id number] ## ## [facility],[address] [place] [address] 08880 Hematocrit (Bld) [Volume 32.5 34.0 - 46.0 % Low [facility] fraction] [facility] ( 30233) Comment: Performed By: #### [id number] ## ## [facility],[address] [place] [address] 60283 Hemoglobin (Bld) 11.4 12.0 - 16.0 g/dl Low 11-25-2019 [facility] [Mass/Vol] [facility] (38985) Comment: Performed By: #### [id number] ## ## [facility],[address] [address] [place] [address] 90041 Lymphocytes/100 WBC (Bld) 40 20 - 40 % Normal 11-12 [facility] ( 18658) Comment: Performed By: #### [id number] ## ## [facility],[address] [place] [address] 42969 MANUAL DIFF SEE BELOW Normal 11-25-2019 [facility] (23189) Comment: Performed By: #### [id number] ## ## [facility],[address] [place] [address] 41965 MCH (RBC) [Entitic mass] 31 27 - 33 pg Normal 11-24 [facility] ( 27565) Comment: Performed By: #### [id number] ## ## [facility],[address] [place] [address] 66521 MCHC (RBC) [Mass/Vol] 35 32 - 36 X10 3 Normal 11-25-19 20 [facility] ( 91185) Comment: Performed By: #### [id number] ## ## [facility],[address] [place] [address] 24551 MCV (RBC) [Entitic vol] 88 80 - 99 fl Normal 2019 [facility] ( 97793) Comment: Performed By: #### [id number] ## ## [facility],[address] [place] [address] 15808 Morphology Adrian (Bld) REVIEWED Normal 0 [facility] [Inter] [facility] ( 70020) Comment: Performed By: #### [id number] ## ## [facility],[address] [place] [address] 62814 Platelet mean volume 9.1 6.6 - 10.5 fl Normal 11-25-19 20 [facility] ([facility]) [Entitic vol] [facility] (32137) Comment: Result Comment: AUTOMATED DI FFERENTIAL Performed By: #### [id number] ## ## [facility],[address] [place] [address] 65402 Platelets (Bld) 268 150 - 450 x10EE3/UL Normal 11-25-2019 [facility] [#/Vol] [facility] (25903) Comment: Performed By: #### [id number] ## ## [facility],[address] [place] [address] 48710 RBC (Bld) [#/Vol] 3.69 4.10 - 5.30 x 10EE6/UL Low 0 [facility] ( 30622) Comment: Performed By: #### [id number] ## ## [facility],[address] [facility] [address] WBC (Bld) [#/Vol] 11.4 4.5 - 10.8 x 10EE3/UL High 11-25-2019 [facility] ( 49486) Comment: Performed By: #### [id number] ## ## [facility],[address] [facility] [address] tsh on 2019-11-24 TSH Qn 3.920 0.270-4.200 uU/mL Normal 11-24-2019 [facility] (04783) Comment: Result Comment: If the patie nt [...] et al. 2017 Guide lines of the [place] Thyroid Association for the Diagnosis and Management of Thyroid Disease during and the . Thyroid, 2017:27:3:315-389. Performed By: #### TSH, CBCD IF, CMP #### [facility] [address] [place] [address] troponin t on 11-23 Troponin T.cardiac Test sent to 0.000-0.029 Normal 2019 [facility] [Mass/Vol] [facility] (70331) [facility]. Comment: Result Comment: Account Cred ited HIDE progress on 2019-11 PROGRESS HNO ID: [id number] Normal 11-24-2019 [facility] Author: Jay) Hugo Lara ([id number]) Service: ? Author Type: Physician Nurses' Registry Director Type: Progress Notes Filed: 11/24/2019 9:33 [...] insurance and was forced to see a [facility] psychiatrist who isn't helping her. Only spoke with her twice. States she is in a lot of pain and trouble sleeping. States gabapentin used to work for her but when she lost her insurance. PAST MEDICAL HISTORY Diagnosis Date - Allergic rhinitis, cause unspecified 05/17/2008spring and summer - Benign liver cyst 05/24/2010 CT scan at [facility] 11/2009 and 04/2010 showe 4 mm increase in size . No pain. No elevated LFTs on 03/11/2010. - Calculus of kidney 05/17/[address] Nicolas: Hospitalized age 20, and again later -- no procedures so far ([facility], [facility], 1995 [facility]) - Dysmenorrhea - Impaired fasting glucose [...] Approx. 3 cigarettes daily-1 pack every w [place] Substance Use Topics - Alcohol use: Yes [...] dimer on D dimer Test sent to [place] <500 Normal 0 [facility]. (20063) Comment: Result Comment: Account Cred ited HIDE comp metabolic panel on 2019-11-24 Albumin [Mass/Vol] 4.4 3.9-4.9 g/dL Normal 11-24-2019 [facility] (55089) Comment: Performed By: #### TSH, CBCD IF, CMP #### [facility] [address] [place], [place] [address] ALP [Catalytic activity/Vol] 105 34-123 U/L Normal 0 11-24-2019 [facility] (80018) Comment: Performed By: #### TSH, CBCD IF, CMP #### [facility] [address] [place], [place] [address] ALT [Catalytic activity/Vol] 6 7-38 U/L Low 0 11-24-2019 [facility] (80122) Comment: Performed By: #### TSH, CBCD IF, CMP #### [facility] [address] [place], [place] [address] Anion gap [Moles/Vol] 12 9-18 mmol/L Normal 11-24-19 20 [facility] (78237) Comment: Performed By: #### TSH, CBCD IF, CMP #### [facility] [address] [place], [place] [address] AST [Catalytic activity/Vol] 14 13-35 U/L Normal 0 11-24-2019 [facility] (21861) Comment: Performed By: #### TSH, CBCD IF, CMP #### [facility] [address] [place], [place] [address] Bilirubin [Mass/Vol] 0.4 0.2-1.3 mg/dL Normal 0 [facility] (02095) Comment: Performed By: #### TSH, CBCD IF, CMP #### [facility] [address] [place], [place] [address] Calcium [Mass/Vol] 9.9 8.5-10.2 mg/dL Normal 11-24-2019 [facility] (53174) Comment: Performed By: #### TSH, CBCD IF, CMP #### [facility] [address] [place], [place] [address] Chloride [Moles/Vol] 101 97-105 mmol/L Normal 0 [facility] (03510) Comment: Performed By: #### TSH, CBCD IF, CMP #### [facility] [address] [place], [place] [address] CO2 [Moles/Vol] 23 22-30 mmol/L Normal 11-24-2019 [facility] (22008) Comment: Performed By: #### TSH, CBCD IF, CMP #### [facility] [address] [place], [place] [address] Creatinine [Mass/Vol] 0.93 0.58-0.96 mg/dL Normal 11-24-19 20 [facility] (20169) Comment: Performed By: #### TSH, CBCD IF, CMP #### [facility] [address] [place], [place] [address] eGFR- Amer. >60 Normal 11-24-2019 [facility] (91514) Comment: Performed By: #### TSH, CBCD IF, CMP #### [facility] [address] [place], [place] [address] GFR/1.73 sq M predicted >60 mL/min/{1.73_m2} Normal 11-24-2019 [facility] among non-blacks MDRD [place] ([address]) (S/P/Bld) [Vol rate/Area] Comment: Result Comment: eGFR [...] By: #### TSH, CBCD IF, CMP #### [facility] [address] [place] [address] Glucose [Mass/Vol] 98 74-99 mg/dL Normal 11-24-2019 [facility] (82720) Comment: Result Comment: The [place] Diabetes Association (ADA) provides guidance for cutoff [...] for diagnosis of diabetes. Reference: Standards of [facility] Care in Diabetes 2016, [place] Diabetes Association. Diabetes Care. 2016.39(Suppl 1). Performed By: #### TSH, CBCD IF, CMP #### [facility] [address] [place], [place] [address] Potassium [Moles/Vol] 4.1 3.7-5.1 mmol/L Normal 11-24-19 [facility] (03243) Comment: Performed By: #### TSH, CBCD IF, CMP #### [facility] [address] [place], [place] [address] Protein [Mass/Vol] 7.6 6.3-8.0 g/dL Normal 11-24-2019 [facility] (23541) Comment: Performed By: #### TSH, CBCD IF, CMP #### [facility] [address] [place], [place] [address] Sodium [Moles/Vol] 136 136-144 mmol/L Normal 11-24-2019 [facility] (80298) Comment: Performed By: #### TSH, CBCD IF, CMP #### [facility] [address] [place], [place] [address] Urea nitrogen [Mass/Vol] 21 7-21 mg/dL Normal 11-23 [facility] (72123) Comment: Performed By: #### TSH, CBCD IF, CMP #### [facility] [address] [place], [place] [address] cnpn on 2019-11-24 [facility] Normal 11-24-2019 [place] [facility] SALLY VARGAS ([id number]) 1980 [facility] Date Time Provider Department (32710) 11/24/19 MARCELINO MEJIA [facility] During your visit today, we recorded the following informati on about you: Yvette Taylor RN 11/24/2019 12:00 PM Signed Aidee from [facility] lab called, verified pt by name [...] (METRONIDAZOLE HCL) 03/11/2010 12 - Shortness of [place] th IBUPROFEN 06/18/2016 8 - GI Upset [...] on 11/24/19 CNPN Telephone (FAMWS) Normal 11-24-2019 [place] SALLY Martinez ([id number]) 1980 F [place] Date Time Provider Department (62935) 11/24/19 [facility] During your visit today, we recorded the following informati on about you: Yvette Taylor RN 11/24/2019 3:23 PM Signed Pt called, verified by name and birthdate. 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 If so please fax to [employer] fax [phone]. ISABEL ARIAS PA-C 11/24/2019 1:00 PM Signed [...] (FAMPWS) Normal 11-24-19 [facility] SALLY VARGAS ([id number]) 1980 F [place] Date Time Provider Department (31926) 11/24/19 9:20 AM JAY ARIAS) RAMA During [...] Benign liver cyst 05/24/2010 CT scan at [facility] 11/2009 and 04/2010 showe 4 mm increase in size . No pain. No elevated LFTs on 03/11/2010. - Calculus of kidney 05/17/[address] Nicolas: Hospitalized age 20, a nd again later -- no procedures so far ([facility], [facility], 1995 [facility]) - Dysmenorrhea - Impaired fasting glucose [...] Approx. 3 cigarettes daily-1 pack every w [place] Substance Use Topics - Alcohol use: Yes [...] (METRONIDAZOLE HCL) 03/11/2010 12 - Shortness of [place] th IBUPROFEN 06/18/2016 8 - GI Upset [...] Order(s):CONSULT TO [facility] [[id number]] Order #: [id number]: 1 levoFLOXacin (LEVAQUIN) 500 mg tabletTake 1 [...] Abs Baso 0.06 <0.11 k/uL Normal 11-24-2019 [facility] (08075) Comment: Performed By: #### TSH, CBCD IF, CMP #### [facility] [address] [place], [place] [address] Abs [place] 0.43 <0.87 k/uL Normal 11-24-2019 [facility] (99477) Comment: Performed By: #### TSH, CBCD IF, CMP #### [facility] [address] [place], [place] [address] Abs Neut 5.59 1.45-7.50 k/uL Normal 11-24-2019 [facility] (51533) Comment: Performed By: #### TSH, CBCD IF, CMP #### [facility] [address] [place], [place] [address] Absolute nRBC <0.01 <0.01 Normal 11-24-2019 [facility] (72484) Comment: Performed By: #### TSH, CBCD IF, CMP #### [facility] [address] [place], [place] [address] Basophils/100 WBC (Bld) 0.7 % Normal 2019 [facility] (09097) Comment: Performed By: #### TSH, CBCD IF, CMP #### [facility] [address] [place] [address] DTYPE Auto Diff Normal 11-24-2019 [facility] (30691) Comment: Performed By: #### TSH, CBCD IF, CMP #### [place] [address] Eosinophils (Bld) [#/Vol] 0.34 <0.46 k/uL Normal 11-12 [facility] (66436) Comment: Performed By: #### TSH, CBCD IF, CMP #### [facility] [address] [place], [place] [address] Eosinophils/100 WBC (Bld) 3.7 % Normal 11-12 [facility] (51030) Comment: Performed By: #### TSH, CBCD IF, CMP #### [facility] [address] [place] [address] Erythrocyte distribution 13.1 11.5-15.0 % Normal 11-23 [facility] width (RBC) [Ratio] [place] ([address]) Comment: Performed By: #### TSH, CBCD IF, CMP #### [facility] [address] [place], [place] [address] Hematocrit (Bld) [Volume 38.1 36.0-46.0 % Normal 11-23 [facility] fraction] [place] ([address]) Comment: Performed By: #### TSH, CBCD IF, CMP #### [facility] [address] [place], [place] [address] Hemoglobin (Bld) 11.7 11.5-15.5 g/dL Normal 11-24-2019 [facility] [Mass/Vol] [place] ([address]) Comment: Performed By: #### TSH, CBCD IF, CMP #### [facility] [address] [place] [address] Lymphocytes (Bld) [#/Vol] 2.69 1.00-4.00 k/uL Normal 11-12 [facility] (33947) Comment: Performed By: #### TSH, CBCD IF, CMP #### [facility] [address] [place] [address] Lymphocytes/100 WBC (Bld) 29.5 % Normal 11-12 [facility] (85288) Comment: Performed By: #### TSH, CBCD IF, CMP #### [facility] [place], [place] [address] MCH (RBC) [Entitic mass] 29.3 26.0-34.0 pG Normal 11-23 [facility] (20969) Comment: Performed By: #### TSH, CBCD IF, CMP #### [facility] [place] [address] MCHC (RBC) [Mass/Vol] 30.7 30.5-36.0 g/dL Normal 11-24-19 20 [facility] (88365) Comment: Performed By: #### TSH, CBCD IF, CMP #### [facility] [address] [place] [address] MCV (RBC) [Entitic vol] 95.3 80.0-100.0 fL Normal 11-23 [facility] (53449) Comment: Performed By: #### TSH, CBCD IF, CMP #### [facility] [address] [place], [place] [address] Monocytes/100 WBC (Bld) 4.7 % Normal 2019 [facility] (40521) Comment: Performed By: #### TSH, CBCD IF, CMP #### [facility] [address] [place], [place] [address] Neutrophils/100 WBC (Bld) 61.4 % Normal 11-12 [facility] (50422) Comment: Result Comment: Differential confirmed by visual scan of peripheral blood smear slide. Performed By: #### TSH, CBCD IF, CMP #### [facility] [address] [place] [address] NRBCs 0.0 0 /100 WBC Normal 11-24-2019 [facility] (42080) Comment: Performed By: #### TSH, CBCD IF, CMP #### [facility] [address] [place] [address] Platelet mean volume 11.4 9.0-12.7 fL Normal 0 [facility] (d) [Entitic vol] [place] ([address]) Comment: Performed By: #### TSH, CBCD IF, CMP #### [facility] [address] [place] [address] Platelets (Bld) [#/Vol] 248 150-400 k/uL Normal 2019 [facility] (30956) Comment: Performed By: #### TSH, CBCD IF, CMP #### [facility] [address] [place] [address] RBC (Bld) [#/Vol] 4.00 3.90-5.20 m/uL Normal 11-24-2019 [facility] (79078) Comment: Performed By: #### TSH, CBCD IF, CMP #### [facility] [address] [place], [place] [address] WBC (Bld) [#/Vol] 9.11 3.70-11.00 k/uL Normal 11-24-2019 [facility] (58025) Comment: Performed By: #### TSH, CBCD IF, CMP #### [facility] [address] [place], [place] [address] cnpn on 2019-11-21 CNPN Telephone (FAMPWS) Normal 11-21-2019 [place] [facility] SALLY VARGAS ([id number]) 1980 [facility] Date Time Provider Department (91733) 11/21/19 [facility] During your visit today, we recorded [...] Status:Closed by VALENTE BRUCE MA on 11/23/19 [facility] on 2019-11-19 CNPN Telephone (FAMPWS) Normal 11-19-2019 [place] [facility] SALLY VARGAS ([id number]) 1980 [facility] Date Time Provider Department (39237) 11/19/19 [facility] During your visit today, we recorded [...] 11/21/2019 11:15 AM Signed Pt seen in [facility] ER on 11/19/19. Janneth Zhou, RN, [...] - Fully Assessed Reason for Visit: Question [1117] Patient Update [1234] Reason For Visit History [...] * *Final Report* * * Normal 11-17 [facility] FRONTAL/LAT DATE OF EXAM: Nov 18 2019 12:48PM [place] WOX 5291 - XR CHEST 2V FRONTAL/LAT / (82214) PROCEDURE REASON: multiple diagnoses * * * [...] tissues: Unremarkable. IMPRESSION: No acute radiographic abnormality. Trim Technician: HERMINIO Transcribe Date/Time: Nov 18 2019 1:01P Dictated by : KORI BLANKENSHIP MD This examination was interpreted and the report reviewed and electronically signed by: KORI BLANKENSHIP MD on Nov 18 2019 1:02PM EST [id number] progress on 2019-11 PROGRESS HNO ID: [id number] Normal 11-18-2019 [facility] Author: Vianey Aguayo (Rt) Lara ([id number]) Service: ? Author Type: Housekeeping Lead Type: Progress Notes Filed: 11/18/2019 12:49 PM [...] 18, 2019 12:40 PM PROGRESS HNO ID: [id number] Normal 11-18-2019 [facility] Author: Randi Lara ([id number]) Service: ? Author Type: Physician Nurses' Registry Director Type: Progress Notes Filed: 11/18/2019 3:32 [...] Benign liver cyst 05/24/2010 CT scan at [facility] 11/2009 and 04/2010 showe 4 mm increase in size . No pain. No elevated LFTs on 03/11/2010. - Calculus of kidney 05/17/[address] Nicolas: Hospitalized age 20, and again later -- no procedures so far ([facility], [facility], [facility]) - Dysmenorrhea - Impaired fasting glucose [...] removed - TOTAL ABDOM HYSTERECTOMY 08/31/06 Hysterectomy, [facility] Family History FAMILY HISTORY Problem Relation [...] Approx. 3 cigarettes daily-1 pack every w [place] Substance Use Topics - Alcohol use: Yes [...] 2019-11-18 EKG1 NAME : SALLY VARGAS 020 [facility] PID : [id number] Sina boyd ([id number]) : 1980 Gender : Female Race : [...] ms QTC Calculation(Bazett) : 453 ms P [place] : 51 degrees R [place] : -43 degrees T [place] : 6 degrees Test Reason : Location : 185 : [facility] Overread By : RUBEN GALVIN D.O. Edited By : RUBEN GALVIN D.O. Referred By : ISABEL ARIAS(MAYA) Acquired by : morena [facility]URRIETA [facility]) Normal 11-18-2019 [place] [facility] SALLY VARGAS ([id number]) 1980 F [place] Date Time Provider Department (64118) 11/18/19 JAY ARIAS) [facility] During your visit today, we recorded the following informati on about you: Lorenzo Vu 11/18/2019 2:14 PM Addendum [facility] / [facility] calls with results of d-dimer 1.10 [...] 2019-11-18 [facility] Office Visit (FAMPWS) Normal 11-18-19 [place] [facility] SALLY VARGAS ([id number]) 1980 [facility] Date Time Provider Department (56974) 11/18/19 12:20 PM JAY ARIAS[facility] During your visit today, we recorded [...] States she was given gabap[facility] which helped or symptoms. I cannot [...] Benign liver cyst 05/24/2010 CT scan at [facility] 11/2009 and 04/2010 showe 4 mm increase in size . No pain. No elevated LFTs on 03/11/2010. - Calculus of kidney 05/17/[address] Nicolas: Hospitalized age 20, a nd again later -- no procedures so far ([facility], [facility], [facility]) - Dysmenorrhea - Impaired fasting glucose [...] removed - TOTAL ABDOM HYSTERECTOMY 08/31/06 Hysterectomy, [facility] Family History FAMILY HISTORY Problem Relation [...] Approx. 3 cigarettes daily-1 pack every w [place] Substance Use Topics - Alcohol use: Yes [...] (METRONIDAZOLE HCL) 03/11/2010 12 - Shortness of [place] th IBUPROFEN 06/18/2016 8 - GI Upset [...] pain syndrome [G89.4] Order(s):CONSULT TO PAIN MGT [534297] Order #: [id number] : 1 FUTURE CBC + DIFF [SQCBCDIF] Order #: [id number] FUTURE COMP METABOLIC PANEL [SQCMP] Order #: [id number] FUTURE D-DIMER [SQDDMER] Order #: [id number] FUTURE TSH BLD [SQTSH] Order #: [id number] FUTURE CONSULT TO CARDIOLOGY [9004] Order #: [id number]: 1 FUTUR E XR CHEST 2V FRONTAL/LAT [3847441] Order #: [id number] FUTURE TROPONIN T [SQTNT] Order #: [id number] FUTURE Prescriptions as of 11/18/2019 Sig: AMITRIPTYLINE [...] 11/18/19 emergency report on 2019-11-03 EMERGENCY REPORT [facility] Normal 11-03 [facility]ital EMERGENCY ROOM REPORT ([id number]) NAME ACCOUNT SEX AGE ADMIT DISCHARGE PT MED. RECORD# NUMBER DATE DATE TYPE SAM [id number] F 39 10/31/19 10/31/19 3 SALLY [id number] ROOM: ER DATE OF : 1980 DICTATING [...] try contacting Dr. Kyle hernandez through the [employer] We will dispense her 2 Percocet to go home. I did r eview her OARRS, and she will be discharged in stable condition. Page 1 of 2 ABDIFATAHSALLY TORRES Emergency Room Report SAM SALLY : 1980 Dictated By: Nikhil Pena DO 10/31/19 18:03 JOB #: [id number] Transcribed By: am 11/01/19 14:42 Electronically signed by: JC Pena D.O. 11/03/19 07:04 Page 2 of 2 SALLY VARGAS Emergency Room Report urinalysis on 10-31 Calcium Ox 1+ NORMAL: NONE Normal 10-31-2019 [facility] (30423) Comment: Performed By: #### [id number] ## ## [facility],[address] [place] [address] Amorphous TRACE Normal 10-31-2019 [facility] (44947) Comment: Performed By: #### [id number] ## ## [facility],[address] [place] [address] Bacteria LM.HPF (Urine sed) TRACE Normal [facility] [#/Area] [facility] ( 90190) Comment: Performed By: #### [id number] ## ## [facility],[address] [place] [address] Bilirubin [Mass/Vol] NEG NORMAL: NEGATIVE mg/dL Normal [facility] (32925) Comment: Performed By: #### [id number] ## ## [facility],[address] [place] [address] Blood 25 NORMAL: NEGATIVE Abnormal 10-31-2019 [facility] (82943) Comment: Performed By: #### [id number] ## ## [facility] [address] [place] [address] 29164 Casts LM.LPF (Urine sed) NONE Normal 10-31 [facility] [/Area] [facility] ( 12398) Comment: Performed By: #### [id number] ## ## [facility],[address] [place] [address] 83912 Clarity (U) clear NORMAL: CLEAR Normal 10-31-2019 [facility] (09440) Comment: Performed By: #### [id number] ## ## [facility],[address] [place] [address] 13920 Color (U) yellow NORMAL: YELLOW Normal 10-31-2019 [facility] (14246) Comment: Performed By: #### [id number] ## ## [facility],[address] [place] [address] 94078 Crystals LM Nom (Urine sed) SEE BELOW Normal [facility] ( 43051) Comment: Performed By: #### [id number] ## ## [facility],[address] [place] [address] 56421 Epi Cells MANY Normal 10-31-2019 [facility] (95399) Comment: Performed By: #### [id number] ## ## [facility],[address] [place] [address] 96643 Glucose [Mass/Vol] NORM NORMAL: NORMAL Normal 2019 [facility] ( 12658) Comment: Performed By: #### [id number] ## ## [facility],[address] [place] [address] 85273 Ketone NEG NORMAL: NEGATIVE Normal 10-31-2019 [facility] (83717) Comment: Performed By: #### [id number] ## ## [facility],[address] [place] [address] 20211 Microscopic SEE BELOW Normal 10-31-2019 [facility] (30751) Comment: Result Comment: MICROSCOPIC Performed By: #### [id number] ## ## [facility],[address] [place] [address] 58587 Mucous NONE Normal 10-31-2019 [facility] (26790) Comment: Performed By: #### [id number] ## ## [facility],[address] [place] [address] 44046 Nitrite Ql (U) NEG NORMAL: NEGATIVE Normal 10-31-19 20 [facility] ( 67495) Comment: Performed By: #### [id number] ## ## [facility],[address] [place] [address] 51263 pH (Bld) 5 NORMAL: 5.0-8.0 Normal 10-31-2019 [facility] (07541) Comment: Performed By: #### [id number] ## ## [facility],[address] [place] [address] 76774 Protein (U) NEG NORMAL: NEGATIVE mg/dL Normal 10-31-2019 [facility] [Mass/Vol] [facility] (91133) Comment: Performed By: #### [id number] ## ## [facility],[address] [place] [address] 15896 Rbc 0-5 0-3/hpf Normal 10-31-2019 [facility] (40477) Comment: Performed By: #### [id number] ## ## [facility],[address] [place] [address] 34583 Sp [place] 1.030 NORMAL: 1.010-1.030 Normal 0 [facility] ( 99309) Comment: Performed By: #### [id number] ## ## [facility],[address] [place] [address] 93453 Specimen type Nom (Spec) UNSPECIFIED Normal [facility] ( 20437) Comment: Performed By: #### [id number] ## ## [facility],[address] [place] [address] 92542 Urobilinog NORM NORMAL: NORMAL Normal 10-31-2019 [facility] (59535) Comment: Performed By: #### [id number] ## ## [facility],[address] [place] [address] 99256 Wbc 1-5 0-5/hpf Normal 10-31-2019 [facility] (77865) Comment: Performed By: #### [id number] ## ## [facility],[address] [place] [address] 68928 WBC (Bld) [#/Vol] 25 NORMAL: NEGATIVE Abnormal 10-31 [facility] ( 62947) Comment: Performed By: #### [id number] ## ## [facility],[address] [place] [address] 07601 Yeast LM Ql (Urine sed) NONE Normal 2019 [facility] (97959) Comment: Performed By: #### [id number] ## ## [facility],[address] [place] [address] 36803 lipase on 2019-10-15 7 Lipase [Catalytic 40.0 18.0 - 51.0 U/L Normal 10-31-2019 [facility] activity/Vol] [facility] (16282) Comment: Performed By: #### [id number] ## ## [facility],[address] [place] [address] 46380 cmp with egfr on 03-11-16 Age - Reported 39 years Normal 10-31-2019 [facility] (16496) Comment: Performed By: #### [id number] ## ## [facility],[address] [place] [address] 90608 Albumin [Mass/Vol] 4.4 3.4 - 4.8 g/dL Normal 10-31-2019 [facility] ( 86991) Comment: Performed By: #### [id number] ## ## [facility],[address] [place] [address] 91250 Albumin/Globulin [Mass 1.3 0.9 - 1.6 {ratio} Normal 020 [facility]] [facility] (61136) Comment: Performed By: #### [id number] ## ## [facility],[address] [place] [address] 31816 ALK PHOS 79 38 - 126 U/L Normal 10-31-2019 [facility] (25986) Comment: Performed By: #### [id number] ## ## [facility],[address] [place] [address] 23430 ALT/SGPT 12 8 - 35 U/L Normal 10-31-2019 [facility] (32096) Comment: Performed By: #### [id number] ## ## [facility],[address] [place] [address] 32614 Anion gap [Moles/Vol] 12 10 - 20 mmol/L Normal 10-31-19 20 [facility] ( 70734) Comment: Performed By: #### [id number] ## ## [facility],[address] [place] [address] 82839 AST/SGOT 13 13 - 39 U/L Normal 10-31-2019 [facility] (86887) Comment: Performed By: #### [id number] ## ## [facility],[address] [place] [address] 74328 B/C RATIO 18 0 - 30 ratio Normal 10-31-2019 [facility] (73621) Comment: Performed By: #### [id number] ## ## [facility],[address] [place] [address] 35615 Bilirubin [Mass/Vol] 0.4 0.0 - 1.5 mg/dl Normal 0 [facility] ( 98724) Comment: Performed By: #### [id number] ## ## [facility],[address] [place] [address] 91376 Calcium [Mass/Vol] 9.6 8.6 - 10.2 mg/dl Normal 10-31-2019 [facility] ( 11810) Comment: Performed By: #### [id number] ## ## [facility],[address] [place] [address] 52074 Chloride [Moles/Vol] 103 98 - 107 mmol/L Normal 0 [facility] ( 65970) Comment: Performed By: #### [id number] ## ## [facility],[address] [place] [address] 21228 CO2 [Moles/Vol] 25.8 21.0 - 31.0 mmol/L Normal 10-31-[address] [facility] ( 84702) Comment: Performed By: #### [id number] ## ## [facility],[address] [place] [address] 31212 Creatinine [Mass/Vol] 1.0 0.6 - 1.2 mg/dl Normal 10-31-19 20 [facility] ( 44684) Comment: Performed By: #### [id number] ## ## [facility],[address] [place] [address] 69126 GFR/1.73 sq M predicted among Normal 10-31-2019 [facility] non-blacks MDRD (S/P/Bld) [Vol Hospital (05069) rate/Area] Comment: Result Comment: COMPREHENSIV E METABOLIC PANEL Performed By: #### [id number] ## ## [facility],[address] [place] [address] 04096 GFR/1.73 sq M >60 60 - 999 mL/min/{1.73_m2} Normal 0 [facility] predicted among [facility] non-blacks MDRD (000 00) (S/P/Bld) [Vol [...] OF AGE AND OLDER. Performed By: #### [id number] ## ## [facility],[address] [place] [address] 94084 Globulin (S) [Mass/Vol] 3.3 1.5 - 3.8 G/DL Normal 2019 [facility] ( 54116) Comment: Performed By: #### [id number] ## ## [facility],[address] [place] [address] [place] [address] Glucose [Mass/Vol] 96 74 - 106 mg/dl Normal 10-31-2019 [facility] ( 31877) Comment: Performed By: #### [id number] ## ## [facility],[address] [place] [address] [place] [address] Potassium [Moles/Vol] 3.9 3.5 - 5.1 mmol/L Normal 10-31-19 20 [facility] ( 96675) Comment: Performed By: #### [id number] ## ## [facility],[address] [place] [address] [place] [address] Protein [Mass/Vol] 7.7 6.4 - 8.3 g/dl Normal 10-31-2019 [facility] ( 35377) Comment: Performed By: #### [id number] ## ## [facility],[address] [place] [address] [place] [address] Sodium [Moles/Vol] 137 136 - 145 mmol/l Normal 10-31-2019 [facility] ( 30413) Comment: Performed By: #### [id number] ## ## [facility],[address] [place] [address] 49905 Urea nitrogen [Mass/Vol] 18 6 - 20 mg/dl Normal 10-31 [facility] ( 58200) Comment: Performed By: #### [id number] ## ## [facility],[address] [place] [address] 78481 cbc + diff on 10-31 Basophils (Bld) 0.20 0.00 - 0.10 x10EE3/UL High 10-31-2019 [facility] hospital [#/Vol] [facility] (73525) Comment: Performed By: #### [id number] ## ## [facility],[address] [place] [address] 77322 Basophils/100 WBC (Bld) 2.0 0.0 - 2.0 % Normal 2019 [facility] ( 22924) Comment: Performed By: #### [id number] ## ## [facility],[address] [place] [address] 45550 CBC + DIFF Normal 10-31-2019 [facility] (11789) Comment: Result Comment: CBC-COMPLETE BLOOD COUNT Performed By: #### [id number] ## ## [facility],[address] [place] [address] 41031 Eosinophils (Bld) 0.40 0.00 - 0.50 x10EE3/UL Normal 10-31-2019 [facility] [#/Vol] [facility] (28351) Comment: Performed By: #### [id number] ## ## [facility],[address] [place] [address] 00865 Eosinophils/100 WBC (Bld) 4.8 0.0 - 7.0 % Normal 10-15 [facility] ( 52862) Comment: Performed By: #### [id number] ## ## [facility],[address] [place] [address] 85864 Erythrocyte distribution 13.7 12.0 - 15.6 % Normal [facility] (RBC) [Ratio] Hospital (09073) Comment: Performed By: #### [id number] ## ## [facility],[address] [place] [address] 27298 Hematocrit (Bld) [Volume 35.8 34.0 - 46.0 % Normal [facility] ( 45789) Comment: Performed By: #### [id number] ## ## [facility],[address] [place] [address] 33698 Hemoglobin (Bld) 12.3 12.0 - 16.0 g/dl Normal 10-31-2019 [facility] [Mass/Vol] [facility] (06606) Comment: Performed By: #### [id number] ## ## [facility],[address] [place] [address] 19589 Lymphocytes (Bld) 2.70 0.80 - 2.80 x10EE3/UL Normal 10-31-2019 [facility] [#/Vol] [facility] (44843) Comment: Performed By: #### [id number] ## ## [facility],[address] [place] [address] 83625 Lymphocytes/100 WBC (Bld) 30.3 20.0 - 45.0 % Normal [facility] ( 11952) Comment: Performed By: #### [id number] ## ## [facility],[address] [place] [address] 13433 MANUAL DIFF N/A Normal 10-31-2019 [facility] (66262) Comment: Performed By: #### [id number] ## ## [address] [address] MCH (RBC) [Entitic mass] 30 27 - 33 pg Normal 10-31 [facility] ( 25044) Comment: Performed By: #### [id number] ## ## [facility],[address] [place] [address] 65511 MCHC (RBC) [Mass/Vol] 34 32 - 36 X10 3 Normal 10-31-19 20 [facility] ( 30426) Comment: Performed By: #### [id number] ## ## [facility],[address] [place] [address] 40295 MCV (RBC) [Entitic vol] 88 80 - 99 fl Normal 2019 [facility] ( 99173) Comment: Performed By: #### [id number] ## ## [facility],[address] [place] [address] 44845 Monocytes (Bld) 0.50 0.20 - 1.00 x10EE3/UL Normal 10-31-2019 [facility] hospital [#/Vol] [facility] (75630) Comment: Performed By: #### [id number] ## ## [facility],[address] [place] [address] 05632 MONOS % 5.4 0.0 - 10.0 % Normal 10-31-2019 [facility] (89609) Comment: Performed By: #### [id number] ## ## [facility],[address] [place] [address] 90963 Morphology Adrian (Bld) [Interp] N/A Normal 10-31-2019 [facility] ( 50302) Comment: Performed By: #### [id number] ## ## [facility],[address] [place] [address] 39681 Neutrophils (Bld) 5.10 1.50 - 7.10 x10EE3/UL Normal 10-31-2019 [facility] [#/Vol] [facility] (91984) Comment: Performed By: #### [id number] ## ## [facility],[address] [place] [address] 23622 Neutrophils/100 WBC (Bld) 57.5 46.0 - 76.0 % Normal [facility] ( 69390) Comment: Performed By: #### [id number] ## ## [facility],[address] [place] [address] 79736 Platelet mean volume 8.9 6.6 - 10.5 fl Normal 10-31-19 20 [facility] (Bld) [Entitic vol] Hospital (21668) Comment: Result Comment: AUTOMATED DI FFERENTIAL Performed By: #### [id number] ## ## [facility],[address] [place] [address] 76409 Platelets (Bld) 280 150 - 450 x10EE3/UL Normal 10-31-2019 [facility] [#/Vol] [facility] (20575) Comment: Performed By: #### [id number] ## ## [facility],[address] [place] [address] 21467 RBC (Bld) [#/Vol] 4.06 4.10 - 5.30 x 10EE6/UL Low 0 [facility] ( 56254) Comment: Performed By: #### [id number] ## ## [facility],[address] [place] [address] 40740 WBC (Bld) [#/Vol] 8.8 4.5 - 10.8 x 10EE3/UL Normal 10-31-2019 [facility] ( 90699) Comment: Performed By: #### [id number] ## ## [facility],[address] [place] [address] 26706 hemogram on 2019-09 Erythrocyte distribution 13.6 11.5-14.5 % Normal 10-08 [facility] width (RBC) [Ratio] (98532) Comment: Performed By: #### MG JULIA 3, HEMOG #### [employer] [address] [place] [address] Hematocrit (Bld) [Volume 33.3 35.0-47.0 % Low 10-[address] [facility] fraction] (65539) Comment: Performed By: #### JULIA MG 3, HEMOG #### [facility] [address] [place], [place] Hemoglobin (Bld) [Mass/Vol] 11.3 11.7-16.0 g/dL Low [facility] (76547) Comment: Performed By: #### BMP3M, MG 3, HEMOG #### [place] [address] [place], [place] MCH (RBC) [Entitic mass] 30.4 26.0-34.0 pg Normal 10-08 [facility] (56495) Comment: Performed By: #### BMP3M, MG 3, HEMOG #### [place] [address] [place] MCHC (RBC) [Mass/Vol] 33.9 32.0-36.0 % Normal 10-08-19 20 [facility] (75554) Comment: Performed By: #### BMP3M, MG 3, HEMOG #### [place] [address] [place] MCV (RBC) [Entitic vol] 89.9 79.0-98.0 fL Normal 2019 [facility] (99006) Comment: Performed By: #### BMP3M, MG 3, HEMOG #### [place] [address] [place], [place] Platelet mean volume (Bld) 9.5 7.4-10.4 fL Normal [facility] [Entitic vol] (98020 ) Comment: Performed By: #### BMP3M, MG 3, HEMOG #### [place] [address] [place], [place] Platelets (Bld) [#/Vol] 240 140-440 10*3/uL Normal 2019 [facility] (67239) Comment: Performed By: #### BMP3M, MG 3, HEMOG #### [place] [address] [place], [place] RBC (Bld) [#/Vol] 3.70 3.80-5.20 10*6/uL Low 10-08-2019 [facility] (82896) Comment: Performed By: #### BMP3M, MG 3, HEMOG #### [facility] [address] [place], [place] WBC (Bld) [#/Vol] 18.5 3.6-10.7 10*3/uL High 10-08-2019 [facility] (43600) Comment: Performed By: #### BMP3M, MG 3, HEMOG #### [facility] [address] [place], [place] ts gel on 2019-09-15 4 TS GEL ABO Group: Normal 10-07-2019 [facility] (44191) O Rh, Gel: POS Antibody Screen Gel: NEG Comment: Performed By: #### BMP3M, MG 3, HEMOG #### [facility] [address] [place], [place] surgical pathology on 2019-10-07 Surgical [id number] Normal 10-07-[address] [facility] Pathology [facility] DEPARTMENT OF [facility] System PATHOLOGY AND ( ) LABORATORY MEDICINE [address] [place] [address] FINAL SURGICAL PATHOLOGY REPORT NAME: SALLY VARGAS : 1980 39 Y F BILLING NO.: [id number] LOCATION: [facility] [phone] PROCEDURE 10/07/2019 DATE: SURGEON: DELON [...] determined by the clinical labor atories of [facility]. They have not been cleared by the [...] negativity on decalcified specimens. Professional Performing Location: [place] [address] [place] [address]. DEPARTMENT OF PATHOLOGY AND LABORATORY MEDICINE [place], [place] [address] op note on Op Note PATIENT: SALLY VARGAS -2 [facility] ([id number]) ADMISSION DATE: 10/07/2019 SURGERY DATE: 10/07/2019 DATE [...] with a minimal EBL. [employer] Job ID: [id number] Delon Palacios MD DOD:10/07/2019 10:46 A SA/semaj DOT:10/07/2019 12:51 P Job Number: [id number] Document Number: [id number] cc: Delon Palacios MD [facility] Physicians [address] [facility] [address] Lui Harris MD [address], [address] [facility] [address] follicle stim hormone on 2019-09-15 Follicle Stim Hormone 6.5 m[IU]/mL Normal 09-15-19 [facility] (24809) Comment: Result Comment: Females: Follicular Phase ...... 2.3- 12.6 Mid-cycle Peak ........ 5.2- 17.5 Luteal Phase .......... 1.7- 12.9 Post-menopausal ....... 12.7 -132.2 Males: 0.7-10.8 Performed By: #### FSH3 #### [facility] [address] [place] [address] us pelvis ta/tv on 2019-09-11 US Pelvis TA/TV Patient Name: SALLY VARGAS 09-11-2019 [facility] ([id number] ) Ultrasound Exam Date/Time 09/11/2019 14:17:16 EST Exam US Pelvis TA/TV Ordering Physician MARLA ARNDT REBECCA E. Accession Number [id number] CPT4 Codes 24660 (US Pelvis TA/TV), 02102 (US Transvaginal) Reason For Exam right ovarian mass seen on CT, s/p hysterectomy Report EXAMINATION: Transabdominal and transvaginal pelvic ultrasound. COMPARISON: CT scan of 09/11/2019 from [facility]. REASON FOR STUDY: Right ovarian mass; [...] 0.0-0.2 10*3/uL Normal 09-05-[address] [facility] (87649) Comment: Performed By: #### NALLELY CHI P3 #### [employer] [address] [place] [address] Abs Neutrophile Cnt 3.9 1.8-7.0 10*3/uL Normal 09-05-[address] [facility] (02256) Comment: Performed By: #### HEMMAGDALENO BM P3 #### [employer] [address] [place] [address] Basophils/100 WBC (Bld) 0.3 0.0-2.0 % Normal [address] [facility] (94507) Comment: Performed By: #### ALON BM P3 #### [employer] [address] [place], [place] Eosinophils (Bld) [#/Vol] 0.2 0.0-0.5 10*3/uL Normal 08-15 [facility] (53324) Comment: Performed By: #### HEMDF, BM P3 #### [place] [address] [place], [place] Eosinophils/100 WBC (Bld) 3.3 1.0-6.0 % Normal 08-15 [facility] (71303) Comment: Performed By: #### HEMDF, BM P3 #### [place] [address] [place] Erythrocyte distribution 12.9 11.5-14.5 % Normal 09-05 [facility] width (RBC) [Ratio] (86833) Comment: Performed By: #### HEMDF, BM P3 #### [place] [address] [place] Granulocytes/100 WBC (Bld) 55.5 40.0-80.0 % Normal [facility] (34611) Comment: Performed By: #### HEMDF, BM P3 #### [place] [address] [place], [place] Hematocrit (Bld) [Volume 34.8 35.0-47.0 % Low 09-05 [facility] fraction] (06904) Comment: Performed By: #### HEMDF, BM P3 #### [place] [address] [place], [place] Hemoglobin (Bld) [Mass/Vol] 11.5 11.7-16.0 g/dL Low [facility] (36776) Comment: Performed By: #### HEMDF, BM P3 #### [place] [address] [place] Lymphocytes (Bld) [#/Vol] 2.5 1.0-4.3 10*3/uL Normal 08-15 [facility] (37836) Comment: Performed By: #### HEMDF, BM P3 #### [place] [address] [place] Lymphocytes/100 WBC (Bld) 35.4 20.0-40.0 % Normal 08-15 [facility] (20269) Comment: Performed By: #### HEMDF, BM P3 #### [place] [address] [place] MCH (RBC) [Entitic mass] 29.9 26.0-34.0 pg Normal 09-05 [facility] (57582) Comment: Performed By: #### HEMDF, BM P3 #### [place] [address] [place] MCHC (RBC) [Mass/Vol] 33.0 32.0-36.0 % Normal 09-05-20 [facility] (82109) Comment: Performed By: #### HEMDF, BM P3 #### [place] [address] [place] MCV (RBC) [Entitic vol] 90.7 79.0-98.0 fL Normal 2018 [facility] (99377) Comment: Performed By: #### HEMDF, BM P3 #### [place] [address] [place] Monocytes (Bld) [#/Vol] 0.4 0.0-0.8 10*3/uL Normal 2018 [facility] (84452) Comment: Performed By: #### HEMDF, BM P3 #### [place] [address] [place] Monocytes/100 WBC (Bld) 5.5 2.0-10.0 % Normal 2018 [facility] (47135) Comment: Performed By: #### HEMDF, BM P3 #### [place] [address] [place] Platelet mean volume (Bld) 9.8 7.4-10.4 fL Normal [facility] [Entitic vol] (84179 ) Comment: Performed By: #### HEMDF, BM P3 #### [facility] [address] [place], [place] Platelets (Bld) [#/Vol] 204 140-440 10*3/uL Normal 2018 [facility] (19092) Comment: Performed By: #### HEMDF, BM P3 #### [facility] [address] [place], [place] RBC (Bld) [#/Vol] 3.83 3.80-5.20 10*6/uL Normal 09-05-2019 S [facility] (41122) Comment: Performed By: #### HEMDF, BM P3 #### [facility] [address] [place], [place] WBC (Bld) [#/Vol] 7.0 3.6-10.7 10*3/uL Normal 09-05-2019 S [facility] (01016) Comment: Performed By: #### HEMDF, BM P3 #### [facility] [address] [place], [place] cr urography retrograde w/ + w/o kub on 2019-09-05 CR Urography Patient Name: SALLY VARGAS Normal 09-05-2019 [facility] Retrograde w/ + w/o System ([id number]) KUB Diagnostic Radiology Exam Date/Time 09/05/2019 08:12:21 EST Exam CR Urography Retrograde w/ + w/o KUB Ordering Physician MAUREEN STONE Accession Number [id number] CPT4 Codes 21425 () Reason For Exam Renal stone fluro c arm c and p Report A total of 1 minute and 11 seconds of fluoro time was used in the Operating Suite for this procedure. No other report will be generated. Final Signed Date and Time: 09/26/2019 2:02 pm Signed by: RAND BUTTER, SYSTEM Transcribed Date and Time: 09/26/2019 1:19 Transcribed By:KRISTAN basic metabolic panel on 2019-09-05 Calcium [Mass/Vol] 8.7 8.4-10.4 mg/dL Normal 09-05-2019 [facility] (20440) Comment: Performed By: #### HEMDF, BM P3 #### [facility] [address] [place], [place] Anion gap [Moles/Vol] 7 Normal 09-05-20 [facility] (96469) Comment: Performed By: #### HEMDF, BM P3 #### [facility] [address] [place], [place] CO2 [Moles/Vol] 24 22-30 mmol/L Normal 09-05-2019 [facility] (46156) Comment: Performed By: #### HEMDF, BM P3 #### [facility] [address] [place], [place] Creatinine [Mass/Vol] 0.79 0.52-1.25 mg/dL Normal 09-05-20 [facility] (08900) Comment: Performed By: #### HEMDF, BM P3 #### [facility] [address] [place], [place] GFR/1.73 sq M > 60.0 >60 mL/min/{1.73_m2} Normal 9 [facility] predicted among Syst em (37290) blacks MDRD (S/P/Bld) [Vol rate/Area] Comment: Performed By: #### HEMDF, BM P3 #### [facility] [address] [place], [place] GFR/1.73 sq M > 60.0 >60 mL/min/{1.73_m2} Normal 9 [facility] predicted among Syst em (72996) non-blacks MDRD (S/P/Bld) [Vol rate/Area] Comment: Result Comment: Source- MDRD equation with creatinine calibration to IDMS(NKDEP) eGFR not recommended for dylon g dose adjustment Performed By: #### HEMDF, BM P3 #### [facility] [address] [place], [place] Glucose [Mass/Vol] 85 70-100 mg/dL Normal 09-05-2019 [facility] (09520) Comment: Performed By: #### HEMDF, BM P3 #### [facility] [address] [place], [place] Urea nitrogen [Mass/Vol] 5 7-20 mg/dL Low 09-05 [facility] (64543) Comment: Performed By: #### HEMDF, BM P3 #### [place] [address] [place], [place] Chloride [Moles/Vol] 108 98-107 mmol/L High 9 [facility] (73737) Comment: Performed By: #### HEMDF, BM P3 #### [place] [address], [place] Potassium [Moles/Vol] 4.0 3.5-5.1 mmol/L Normal 09-05-20 19 [facility] (11934) Comment: Performed By: #### HEMDF, BM P3 #### [place] [address], [place] Sodium [Moles/Vol] 140 135-145 mmol/L Normal 09-05-2019 [facility] (98562) Comment: Performed By: #### HEMDF, BM P3 #### [place] [address], [place] magnesium on 2018-09 Magnesium [Mass/Vol] 1.9 1.6-2.3 mg/dL Normal 9 [facility] (57952) Comment: Performed By: #### BMP3M, MG 3, HEMOG #### [place] [address], [place] hemogram on 2019-08 Erythrocyte distribution 13.2 11.5-14.5 % Normal 09-04 [facility] width (RBC) [Ratio] (82424) Comment: Performed By: #### BMP3M, MG 3, HEMOG #### [address] Hematocrit (Bld) [Volume 36.7 35.0-47.0 % Normal 09-04 [facility] fraction] (36005) Comment: Performed By: #### BMP3M, MG 3, HEMOG #### [place] [address] [place], [place] Hemoglobin (Bld) 12.3 11.7-16.0 g/dL Normal 09-04-2019 [facility] [Mass/Vol] (56319) Comment: Performed By: #### BMP3M, MG 3, HEMOG #### [facility] [address] [place], [place] MCH (RBC) [Entitic mass] 30.6 26.0-34.0 pg Normal 09-04 [facility] (95204) Comment: Performed By: #### BMP3M, MG 3, HEMOG #### [place] [address], [place] MCHC (RBC) [Mass/Vol] 33.5 32.0-36.0 % Normal 09-04-20 19 [facility] (99646) Comment: Performed By: #### BMP3M, MG 3, HEMOG #### [place] [address], [place] MCV (RBC) [Entitic vol] 91.3 79.0-98.0 fL Normal 2018 [facility] (93389) Comment: Performed By: #### BMP3M, MG 3, HEMOG #### [place] [address], [place] Platelet mean volume (Bld) 10.4 7.4-10.4 fL Normal [facility] [Entitic vol] (85641 ) Comment: Performed By: #### BMP3M, MG 3, HEMOG #### [place] [address], [place] Platelets (Bld) [#/Vol] 211 140-440 10*3/uL Normal 2018 [facility] (35455) Comment: Performed By: #### BMP3M, MG 3, HEMOG #### [place] [address] [place], [place] RBC (Bld) [#/Vol] 4.02 3.80-5.20 10*6/uL Normal 09-04-2019 [facility] (00970) Comment: Performed By: #### BMP3M, MG 3, HEMOG #### [facility] [address] [place], [place] WBC (Bld) [#/Vol] 7.1 3.6-10.7 10*3/uL Normal 09-04-2019 [facility] (90072) Comment: Performed By: #### BMP3M, MG 3, HEMOG #### [facility] [address] [place], [place] culture urine on 01-09-22 CULTURE URINE CULTURE URINE --> Status: F Normal 09-04-2019 [facility] No growth (<1,000 CFU/ml). (17458) Comment: Order Comment: Specimen Sour ce Comment:Urine, clean catch Performed By: #### C/UR #### [place] [address], [place] basic metabolic panel on 2019-09-04 Potassium [Moles/Vol] 3.5 3.5-5.1 mmol/L Normal 09-04-20 [facility] (55455) Comment: Performed By: #### BMP3M, MG 3, HEMOG #### [facility] [place] [address], [place] Anion gap [Moles/Vol] 9 Normal 09-04-20 [facility] (88593) Comment: Performed By: #### BMP3M, MG 3, HEMOG #### [place] [address] [place], [place] Calcium [Mass/Vol] 8.8 8.4-10.4 mg/dL Normal 09-04-2019 [facility] (29566) Comment: Performed By: #### BMP3M, MG 3, HEMOG #### [place] [address] [place], [place] CO2 [Moles/Vol] 26 22-30 mmol/L Normal 09-04-2019 [facility] (22414) Comment: Performed By: #### BMP3M, MG 3, HEMOG #### [place] [address] [place], [place] Glucose [Mass/Vol] 76 70-100 mg/dL Normal 09-04-2019 [facility] (78321) Comment: Performed By: #### BMP3M, MG 3, HEMOG #### [facility] [address] [place], [place] Urea nitrogen [Mass/Vol] 10 7-20 mg/dL Normal 09-04 [facility] (80526) Comment: Performed By: #### BMP3M, MG 3, HEMOG #### [facility] [address] [place], [place] Creatinine [Mass/Vol] 0.81 0.52-1.25 mg/dL Normal 09-04-20 19 [facility] (09601) Comment: Performed By: #### BMP3M, MG 3, HEMOG #### [facility] [place] [address], [place] GFR/1.73 sq M > 60.0 >60 mL/min/{1.73_m2} Normal [address] [facility] predicted among Syst em (17344) blacks MDRD (S/P/Bld) [Vol rate/Area] Comment: Performed By: #### BMP3M, MG 3, HEMOG #### [facility] [place] [address], [place] GFR/1.73 sq M > 60.0 >60 mL/min/{1.73_m2} Normal [address] [facility] predicted among Syst em (74228) non-blacks MDRD (S/P/Bld) [Vol rate/Area] Comment: Result Comment: Source- MDRD equation with creatinine calibration to IDMS(NKDEP) eGFR not recommended for dylon g dose adjustment Performed By: #### BMP3M, MG 3, HEMOG #### [facility] [place] [address], [place] Sodium [Moles/Vol] 138 135-145 mmol/L Normal 09-04-2019 [facility] (16649) Comment: Performed By: #### BMP3M, MG 3, HEMOG #### [facility] [address] [place] [address] Chloride [Moles/Vol] 103 98-107 mmol/L Normal 9 [facility] (70029) Comment: Performed By: #### BMP3M, MG 3, HEMOG #### [facility] [address] [place] [address] cr abdomen ap on 01-09-21 CR Abdomen AP Patient Name: SALLY VARGAS 09-03-2019 [facility] (38091 ) Diagnostic Radiology Exam Date/Time 09/03/2019 17:35:36 EST Exam CR Abdomen AP Ordering Physician MD RACH,CONCHIS Ha Accession Number [id number] CPT4 Codes 56460 () Reason For Exam nephrolithiasis Report ABDOMEN, [...] on 2019-08-03 [facility]CO Letter Text Normal 08-03-2019 [facility] (42618) xr sacrum/coccyx 3v ap/lat on 2019-07-21 XR SACRUM/COCCYX 3V * * *Final Report* * * Normal 07-21-2019 [place] AP/LAT DATE OF EXAM: Jul 21 2019 11:38AM [facility] WOX 5246 - XR SACRUM/COCCYX 3V AP/LAT / 4 [place] PROCEDURE REASON: multiple diagnoses (92233) * * * * Physician Interpretation * [...] BONY ABNORMALITY IN THE PELVIS SEGMENT COCCYX. Trim Technician: [facility] Transcribe Date/Time: Jul 21 2019 4:01P Dictated by : ESTEE CUMMINGS MD This examination was interpreted and the report reviewed and electronically signed by: ESTEE CUMMINGS MD on Jul 21 2019 4:06PM EST [id number] xr lumbar 3v ap/lat/l5-s1 on 2019-07-21 XR LUMBAR 3V * * *Final Report* * * Normal 11-0 [place] AP/LAT/L5-S1 DATE OF EXAM: Jul 21 2019 11:38AM Clinic WOX 5228 - XR LUMBAR 3V AP/LAT/L5-S1 / [place] PROCEDURE REASON: multiple diagnoses (23190) * * * * Physician Interpretation * [...] BONY ABNORMALITY IN THE PELVIS SEGMENT COCCYX. Trim Technician: HERMINIO Transcribe Date/Time: Jul 21 2019 4:01P Dictated by : ESTEE CUMMINGS MD This examination was interpreted and the report reviewed and electronically signed by: ESTEE CUMMINGS MD on Jul 21 2019 4:06PM EST [id number] tsh on 2019-07-21 TSH Qn 1.510 0.270-4.200 uU/mL Normal 07-21-2019 [facility] (29071) Comment: Result Comment: If the patie nt [...] et al. 2017 Guide lines of the [place] Thyroid Association for the Diagnosis and Management of Thyroid Disease during and the . Thyroid, 2017:27:3:315-389. Performed By: #### MORIAH, TS H, HBA1C ####[facility] [id number] [place] [address] [phone] progress on 2019-07 PROGRESS HNO ID: [id number] Normal 07-21-2019 [facility] Author: Elena Millard [facility] (86657) Service: ? Author Type: ? Type: Progress [...] 21, 2019 11:23 AM PROGRESS HNO ID: [id number] Normal 07-21-2019 [facility] Author: AustinPaRex) Hugo Lara ([id number]) Service: ? Author Type: Physician Nurses' Registry Director Type: Progress Notes Filed: 07/21/2019 11:26 [...] Benign liver cyst 05/24/2010 CT scan at [facility] 11/2009 and 04/2010 showe 4 mm increase in size . No pain. No elevated LFTs on 03/11/2010. - Calculus of kidney 05/17/[address] Nicolas: Hospitalized age 20, and again later -- no procedures so far ([facility], most, 1995 [facility]) - Dysmenorrhea - Impaired fasting glucose [...] removed - TOTAL ABDOM HYSTERECTOMY 08/31/06 Hysterectomy, [facility] Family History FAMILY HISTORY Problem Relation [...] Cholesterol [Mass/Vol] 206 <200 mg/dL High 019 [facility] (58479) Comment: Result Comment: <200 mg/dL, Desirable 200-239 mg/dL, Borderline hi gh >239 mg/dL, High Performed By: #### LIPNF, TS H, HBA1C ####[facility] [id number] [place], [place] [address] [phone] Cholesterol in 2.39 <2.54 mg/dL Normal 07-21-2019 [facility] LDL/Cholesterol in HDL [[facility] (54591) ratio] Comment: Result Comment: Reference: 1. National Cholesterol Educ ation Program ATP III Guideline At-A-Glance Quick Desk Reference: National Heart, Lung, and Blood [place]. National Institutes of Health. 2001: NIH Publication No. 01-3305. 2. An International Atherosc lerosis Society position paper: global recommendations for the management of dyslipidemia: executive summary, Atherosclerosis. 2014: 232(2):410-413. Performed By: #### LIPCARMELITA, TS H, HBA1C ####[facility] [place] [address] [phone] Cholesterol.total/Cholesterol in 4.04 <5.10 mg/dL Normal 07-21-2019 [place] HDL [Mass ratio] [facility] (64578) Comment: Performed By: #### LIPCARMELITA, TS H, HBA1C ####[facility] [address] [phone] HDL Cholesterol, NF 51 >39 mg/dL Normal 07-21-2019 [facility] (77034) Comment: Result Comment: 40-59 mg/dL, Acceptable >59 mg/dL, High: Negative ri sk factor for coronary heart disease <40 mg/dL, Low: Positive ris k factor for coronary heart disease Performed By: #### LIPCARMELITA, TS H, HBA1C ####[place] [id number] [place] [address] [phone] LDL Cholesterol, NF 122 <100 mg/dL High 07-21-2019 [facility] (66585) Comment: Result Comment: <100 mg/dL, Optimal 100-129 mg/dL, Near optimal/ above optimal 130-159 mg/dL, Borderline hi gh 160-189 mg/dL, High >189 mg/dL, Very high Secondary prevention optimal LDL Cholesterol levels are recommended to be < 70 mg/dL Performed By: #### LIPCARMELITA, TS H, HBA1C ####[facility] [address] [phone] Non HDL Chol, NF 155 <130 mg/dL High 07-21-2019 [facility] (13772) Comment: Result Comment: <130 mg/dL, Optimal 130-159 mg/dL, Near optimal/ above optimal 160-189 mg/dL, Borderline hi gh 190-219 mg/dL, High >219 mg/dL, Very high Secondary prevention optimal non HDL Cholesterol levels are recommended to be < 100 mg/dL Performed By: #### LIPNF, TS H, HBA1C ####[facility] [address] [phone] Triglycerides, NF 163 <150 mg/dL High 07-21-2019 [facility] (05290) Comment: Result Comment: <150 mg/dL, Normal 150-199 mg/dL, Borderline hi gh 200-499 mg/dL, High >499 mg/dL, Very high Performed By: #### LIPNF, TS H, HBA1C ####[facility] [place] [address] [phone] VLDL Cholesterol, NF 33 <30 mg/dL High 9 [facility] (84879) Comment: Performed By: #### LIPNF, TS H, HBA1C ####[place] [id number] [place] [address] [phone] hemoglobin a1c on 2 HbA1c (Bld) [Mass fraction] 105 mg/dL Normal [facility] (37259) Comment: Result Comment: eAG: (Estima arnie average glucose) is a calculated value from HgbA1c and is herbicide service sales representative of the average blood glucose level in the last 2-3 month period. Performed By: #### LIPNF, TS H, HBA1C ####[place] [id number] [place] [address] [phone] HbA1c (Bld) [Mass fraction] 5.3 4.3-5.6 % Normal [facility] (61215) Comment: Result Comment: [place] Marya betes Association guidelines indicate that patients with HgbA1c in the range 5.7-6.4% are at increased risk for development of diabetes, and intervention by lifestyle modification may be beneficial. HgbA1c greater o r equal to 6.5% is considered diagnostic of diabetes. Performed By: #### LIPNF, TS H, HBA1C ####[facility] [place] [address] [phone] cnov on 2019-07-21 CNOV Office Visit (FAMPWS) Normal 07-21-20 19 [place] [facility] SALLY VARGAS ([id number]) 1980 F [place] Date Time Provider Department (26066) 07/21/19 10:40 AM JAY ARIAS) RAMA During [...] Benign liver cyst 05/24/2010 CT scan at [facility] 11/2009 and 04/2010 showe 4 mm increase in size . No pain. No elevated LFTs on 03/11/2010. - Calculus of kidney 05/17/[address] Nicolas: Hospitalized age 20, a nd again later -- no procedures so far ([facility], most, 1995 [facility]) - Dysmenorrhea - Impaired fasting glucose [...] removed - TOTAL ABDOM HYSTERECTOMY 08/31/06 Hysterectomy, [facility] Family History FAMILY HISTORY Problem Relation [...] (METRONIDAZOLE HCL) 03/11/2010 12 - Shortness of [place] th IBUPROFEN 06/18/2016 8 - GI Upset [...] cardiovascular disease [Z13.220, Z13.6] Order(s):CONSULT TO NEUROLOGY [9022] Order #: [id number]: 1 FUTURE amitriptyline (ELAVIL) 50 mg tabletTake 1 tablet by mouth da federico at bedtime.Disp: 30 tabletRfl: 5 XR LUMBAR GENERAL 3V AP/LAT/L5-S1 [8737965] Order #: [id number] FUTURE XR SACRUM/COCCYX 3V AP/LAT [1156092] Order #: [id number] FUT URE TSH BLD [SQTSH] Order #: [id number] FUTURE HGB A1C [GETZD6Y] Order #: [id number] FUTURE LIPID PANEL, NONFASTING [SQLIPNF] Order #: [id number] FUTURE cyclobenzaprine (FLEXERIL) 10 mg tabletTake 1 [...] - 3. Body Temperature 97.81 [degF] 05-17-2020 [facility] (77610) Body Temperature 97.9 [degF] 05-08-2020 [facility] (30302) Body weight 89.9 kg 05-17-2020 [facility] (13892) Body weight 93.89 kg 05-08-2020 [facility] (30088) BP Diastolic 82 mm[Hg] 05-17-2020 [facility] (33416) BP Diastolic 76 mm[Hg] 05-08-2020 [facility] (00738) BP Systolic 124 mm[Hg] 05-17-2020 [facility] (45509) BP Systolic 121 mm[Hg] 05-08-2020 [facility] (12609) Height 154.9 cm 05-08-2020 [facility] (11017) Pulse (Heart Rate) 86 /min 05-17-2020 [place] [facility] (09195) Pulse (Heart Rate) 91 /min 05-08-2020 [place] [facility] (43498) Pulse Oximetry 97 % 05-08-2020 [facility] (39953) Respiratory Rate 16 /min 05-17-2020 [place] [facility] (86717) Respiratory Rate 18 /min 05-08-2020 [place] [facility] (23552) Encounters Date Type Reason Provider Location 06-25-2020 - Chart abstracting Postoperative pain Mala [facility] 06-25-[address] [facility] Comment: Refill Request 05-23-2020 - E-mail encounter Isabel Romero) [facility] 05-23-2020 from jackie Arias 03-24-2020 - Emergency Migraine, CORBY Eddy Mello Johnston 03-24-2020 department unspecified, not [facility] patient visit CORBY frazier (07925) without [facility] ISABEL ARIAS UNKNOWN PROVIDER 01-21-2020 - Emergency ANA Johnston 01-21-2020 department [facility] al patient visit ANA ALVARADO (35458) JENNIFER ARIAS UNKNOWN PROVIDER 11-25-2019 - Emergency ANA Johnston 11-25-2019 department [facility] al patient visit ANA ALVARADO (69952) JENNIFER ARIAS UNKNOWN PROVIDER 10-31-2019 - Emergency Lower abdominal NIKHIL E Mello Moreira shiva 10-31-2019 department pain, [facility] al patient visit unspecified NIKHIL Shannon ([id number]) JEAN ESTRADA PROVIDER 04-26-2020 - Letter encounter [...] pancreas Mala [facility] 06-05-2020 procedure [facility] Comment: Pancreatic cyst (Primary Dx) 05-30-2020 - Patient [facility] Provider Marco [facility] c 05-30-2020 encounter procedure 05-24-2020 - Patient Abdominal Johnny Mccall Gastroenterolog y 05-24-2020 encounter bloating [facility] procedure Comment: Bloating (Primary Dx); Nausea and vomiting, intract ability of vomiting not specified, unspecified vomiting type; Diarrhea, unspecified type 05-23-2020 Patient encounter Postoperative pain Isabel Romero) [facility] procedure Hugo Underwood Comment: RE: Appointment Request 05-17-2020 - Patient encounter Shoulder pain Kenia (Fare Collector) [place] [facility] 05-17-2020 procedure Workman Xr [facility] [place] Comment: Acute pain of right shoulder (Primary Dx) Radiology XR 04-30-2020 - Patient encounter Generalized abdominal Us [facility] Wstr R adiology 04-30-2020 procedure pain Mob 1 Comment: Radiology US 06-28-2020 - 06-28-2020 Refill Postoperative pain Mala BOOKER PROVIDER ADULT Comment: Refill Request 06-26-2020 - 06-26-2020 Refill Johnny Mccall [facility] [place] Comment: Refill Request 05-30-2020 Results Only [facility] Provider Marco [facility] Department 05-08-2020 - Subsequent Generalized Johnny Mccall Ambulatory 05-08-2020 hospital visit by abdominal pain [facility] Surgery physician Comment: Generalized abdominal pain [ R10.84] 06-05-2020 - Telemedicine Maal Almendarez [place] [facility] 06-05-2020 consultation with patient 05-24-2020 - Telemedicine Johnny Mccall [place] [facility] 05-24-2020 consultation with Pa patient 06-15-2020 - Telephone encounter Local infection Taty (Hotel Operation Manager [facility] 06-15-2020 of wound Fare Collector) [facility] DEPARTMENT Comment: Multiple Concerns 05-31-2020 - Telephone encounter Johnnyvivienne Mccall [facility] [place] 05-31-2020 [facility] Comment: Patient Update 05-18-2020 - Telephone Shoulder pain Marcelino Mejia [facility] zacharyne 05-18-2020 encounter [place] Comment: Referral Request 05-07-2020 - Telephone encounter Johnny Mccall [facility] [place] 05-07-2020 [facility] Comment: Patient Update 05-01-2020 - Telephone encounter Johnny Mccall [facility] [place] 05-01-2020 [facility] Comment: Results 04-30-2020 - Telephone encounter Johnny Mccall [facility] [place] 04-30-2020 [facility] Comment: Returning Patient's Call 04-27-2020 - 04-27-2020 Telephone encounter Marcelino Mejia [facility] [place] Comment: Medication request Procedures Procedure Name Date Provider Location Antibody screen 06-11-2020 [facility] ([id number]) Comment: Performed By: #### CBCD1 ### # [place] [address] CARDIAC 05-30-2020 [facility] Provider [facility] (59184) Radex shoulder complete minimum 2 05-17-2020 - Kenia (Fare Collector) [facility] views 05-17-2020 Workman (98412) SURGICAL PATHOLOGY 05-08-2020 Johnny Mccall [place] [facility] (80403) Colonoscopy flx dx w/collj spec 05-08-2020 [facility] Provider [facility] when pfrmd (50101) Esophagogastroduodenoscopy 05-08-2020 [facility] Provider [facility] transoral diagnostic (24725) Us abdominal real time w/image 04-30-2020 - Johnny Burks [facility] limited 04-30-2020 [facility] (99985) Urinalysis 10-31-2019 [facility] (61171) Comment: Result Comment: URINALYSIS Performed By: #### [id number] ## ## [facility],[address] [place] [address] Plan of Treatment Plan Description Date Location DTAP,TDAP,TD (2 - Td) DTAP,TDAP,TD (2 - Td) 05-28-2025 - [facility] 05-28-2025 (01051) INFLUENZA (#1) INFLUENZA (#1) 2020 - [facility] 05-15-2020 ([id number]) MAMMOGRAM MAMMOGRAM 2019 - [facility] 2019 (35813) COLONOSCOPY COLONOSCOPY 1997 - [facility] 1997 (08641) HEPATITIS C SCREENING HEPATITIS C SCREENING 1997 - [facility] 1997 (45915) HIV SCREENING HIV SCREENING 1997 - [facility] 1997 (10350) COLONOSCOPY - COLONOSCOPY - DIAGNOSTIC 05-08-2020 [facility] DIAGNOSTIC Endoscopy Routine (20135) Generalized abdominal pain Loose stools Dyspepsia Gastroesophageal reflux disease, esophagitis presence not specified Other dysphagia History of acute pancreatitis Bloating Nausea and vomiting, intractability of vomiting not specified, unspecified vomiting type 1 Occurrences starting 05/08/2020 until 05/08/2020 Comment: 1 Occurrences starting 05/08 until 05/08/2020 EGD EUS EGD EUS Endoscopy Routine Idiopathic 05-10-2021 [facility] (92152) acute pancreatitis, unspecified complication status 1 Occurrences starting 05/10/2020 until 05/10/2021 Comment: 1 Occurrences starting 05/10 until 05/10/2021 EGD EGD Endoscopy Routine Generalized abdominal 04-15 [facility] ([id number]) pain Loose stools Dyspepsia Gastroesophageal reflux disease, esophagitis presence not specified Other dysphagia History of acute pancreatitis Bloating Nausea and vomiting, intractability of vomiting not specified, unspecified vomiting type 1 Occurrences starting 05/08/2020 until 05/08/2020 Comment: 1 Occurrences starting 05/08 until 05/08/2020 MRI ABDOMEN WO/W IVCON MRI ABDOMEN WO/W IVCON 07-05-2021 [facility] ([id number]) Radiology Routine Pancreatic cyst 1 Occurrences starting 06/05/2020 until 07/05/2021 Comment: 1 Occurrences starting 06/05 until 07/05/2021 PRE-PROCEDURE & PRE-PROCEDURE & 05-10-2021 [facility] PRE-OPERATIVE COVID PRE-OPERATIVE COVID ([id number]) Microbiology Routine Idiopathic acute pancreatitis, unspecified complication status 1 Occurrences starting 05/10/2020 until 05/10/2021 Comment: 1 Occurrences starting 05/10 until 05/10/2021 SURGICAL PATHOLOGY SURGICAL PATHOLOGY Lab Routine [facility] ([id number]) 05/08/2020 1:17 PM EDT no information [facility] ([id number]) Immunizations Vaccine Notes Status Date Location Influenza Seasonal influenza, seasonal, (completed) 05-11-2020 - [facility] Inj Age 3+ injectable 05-11-2020 (40015) Influenza Seasonal influenza, seasonal, (completed) 05-31-2019 - [facility] Inj Age 3+ injectable 05-31-2019 (00214) Pneumovax pneumococcal ([facility]) [facility], 05-19-2017 (441 95) 23 valent Tdap (Age 7+) tetanus toxoid, reduced (completed) 05-28-2015 - [facility] diphtheria toxoid, and 05-28-2015 (4419 5) acellular pertussis vaccine, adsorbed Payers Payer Name Policy Number Location [facility] [id number] [facility] OUTPATIENT ([id number]) [employer] [employer] [id number] [facility] ([phone] [id number] [facility] ([id number]) [id number] [facility] ([id number]) [id number] [facility] ([id number]) [id number] [facility] ([id number]) The following information is from the original human readable contentNo Payer Records FoundNo Payer Records FoundNo Payer Records FoundNo Payer Records FoundNo Payer Records FoundNo Payer Records FoundNo Payer Records FoundNo Payer Records FoundNo Payer Records Found Social History Type Social History Date Location Description History of tobacco use Current smoker 01-12-2017 [facility] ([id number]) Alcohol Comment Occasional 11-26-2010 - [facility] 11-26-2010 (22282) History of tobacco use Cigarette Smoker 01-12-2017 [facility] (59474) Cigarettes smoked 05-17-2020 - [facility] current (pack per day) 06-08-2020 (71984) - Reported Tobacco use and Never used 05-17-2020 - [facility] exposure 06-08-2020 (87635) Alcohol intake Current drinker of 05-17-2020 - [facility] alcohol (finding) 06-08-2020 (34601) Tobacco Comment Approx. 3 cigarettes 03-10-2011 - [facility] daily-1 pack every week 03-10-2011 (42729) Tobacco smoking status Former smoker 05-17-2020 - [facility] NHIS 06-08-2020 (71031) Sex Assigned At Not on file [facility] (02171) Exposure to SARS-CoV-2 Not sure [facility] (event) (10276) History SDOH Financial 5 06-08-2020 - [facility] 06-08-2020 (20580) History SDOH Food Worry 1 06-08-2020 - [facility] 06-08-2020 (30823) History SDOH Transport 2 06-08-2020 - [facility] Med 06-08-2020 (98598) Exposure to SARS-CoV-2 Yes [facility] (event) (29000) The following information is from the original human readable contentNo Social History Records FoundNo Social History Records FoundNo Social History Records FoundNo Social History Records FoundNo Social History Records FoundNo Social History Records FoundNo Social History Records FoundNo Social History Records FoundNo Social History Records FoundNo Social History Records FoundNo Social History Records Found Instructions Patient InstructionsBartolo Kenia (Fare Collector) - 05/17/2020 12:23 PM EDTA/P (M25.511) Acute [...] Vargas Date of : 1980 MRN/E #: [id number] Chief Complaint Patient presents with: right shoulder [...] history is provided by the patient. No senior bookkeeper was used. PAIN EVALUATION 05/17/2020 1153 Pain [...] Benign liver cyst 05/24/2010 CT scan at [facility] 11/2009 and 04/2010 showe 4 mm increase in size. No pain. No elevated LFTs on 03/11/2010. ? Calculus of kidney 05/17/[address] Nicolas: Hospitalized age 20, and again later -- no procedures so far ([facility], 1995 [facility]) ? Dysmenorrhea ? 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 oJhnny Winn MD documented in this encounterKylee DavenportRt)Vianey [...] go to the ED. Patient went to [place] ED and mentions 'nothing was done. They [...] note she presented to the ED in [place] in January 2020 for abdominal pain of [address] abdomen was essentially unremarkable including pancreas. Was found to have lipase of 193 on 02/15/2020. Amylase normal. Hepatic function panel. ? Has h/o cholecystectomy in 1998. PAST MEDICAL HISTORY Diagnosis Date ? Allergic rhinitis, cause unspecified 05/17/2008 Spring and summer ? Benign liver cyst 05/24/2010 CT scan at [facility] 11/2009 and 04/2010 showe 4 mm increase in size. No pain. No elevated LFTs on 03/11/2010. ? Calculus of kidney 05/17/[address] Nicolas: Hospitalized age 20, and again later -- no procedures so far ([facility], 1996 [facility]) ? Cancer (HCC) ? Diverticulosis ? [...] the ED yesterday - she went to [place] ED and was told that pancreas levels [...] for nausea. Advised to go to the [facility] ED if no improvement in symptoms. [...] Documents on File Type Date Recorded Patient Etiologist Explanati on Advance Directive(s) 05/08/2020 12:13 PM Documents on File Type Date Recorded Patient Etiologist Explanati on Advance Directive(s) 05/08/2020 12:13 PM Documents on File Type Date Recorded Patient Etiologist Explanati on Advance Directive(s) 05/08/2020 12:13 PM Advance Directive(s) 05/25/2020 7:47 AM Documents on File Type Date Recorded Patient Etiologist Explanati on Advance Directive(s) 05/08/2020 12:13 PM Advance Directive(s) 05/25/2020 7:47 AM Documents on File Type Date Recorded Patient Etiologist Explanati on Advance Directive(s) 05/08/2020 12:13 PM Advance Directive(s) 05/25/2020 7:47 AM Advance Directive(s) 06/08/2020 9:30 AM Documents on File Type Date Recorded Patient Etiologist Explanati on Advance Directive(s) 05/08/2020 12:13 PM Advance Directive(s) 05/25/2020 7:47 AM Advance Directive(s) 06/08/2020 9:30 AM Documents on File Type Date Recorded Patient Etiologist Explanati on Advance Directive(s) 05/08/2020 12:13 PM Advance Directive(s) 05/25/2020 7:47 AM Advance Directive(s) 06/08/2020 9:30 AM Advance Directive(s) 06/19/2020 3:44 PM Documents on File Type Date Recorded Patient Etiologist Explanati on Advance Directive(s) 05/08/2020 12:13 PM [...] [address] [place] [address] [id number] Phone: Fax: Status Reason Specialty Diagnoses / Referred By Referred To Procedures Contact Contact Authorized PCP Requested Orthopedics Diagnoses Acute shoulder pain, unspecified laterality Marcelino Mejia Referral Procedures CONSULT TO ORTHOPAEDICS NEW PATIENT VISIT LEVEL [address] [place] [address] Status Reason Specialty Diagnoses / Referred By Referred To Procedures Contact Contact Pending Review Auto-Generated MR IMAGING Diagnoses Pancreatic cyst Mala Almendarez Mr Imaging Referral Procedures MRI ABDOMEN WO/W IVCON MRI,ABDOMEN,W&WO CONTRS [address] [facility] [address] [place] [address] Status Reason Specialty Diagnoses / Procedures Referred By Kimmie davis Referred To Contact Closed Diagnoses Post-op pain Mala Almendarez [address] [facility] [address] [address] [facility] [address] [place] [address] Phone: Health Concerns Infection Onset Date Last [...] BE BASED ON THE PRIMARY CLINICAL RECORDS. [facility] provides no warranty or guarantee of the accuracy or completeness of information in this document. UNRECOGNIZED CONTENT PROVIDED BELOW FOR UNRECOGNIZED SECTION Source Comments In the event this information is protected by the Federal Confidentiality of Alcohol and Drug Abuse Patient Records regulations: The Federal rules restrict any use of the information to criminally investigate or prosecute any alcohol or drug abuse patient.[facility] the event this information is protected by the Federal Confidentiality of Alcohol and Drug Abuse Patient Records regulations: The Federal rules restrict any use of the information to criminally investigate or prosecute any alcohol or drug abuse patient.[facility] Center[facility] the event this information is protected by the Federal Confidentiality of Alcohol and Drug Abuse Patient Records regulations: The Federal rules restrict any use of the information to criminally investigate or prosecute any alcohol or drug abuse patient.[facility] Center[facility] the event this information is protected by the Federal Confidentiality of Alcohol and Drug Abuse Patient Records regulations: The Federal rules restrict any use of the information to criminally investigate or prosecute any alcohol or drug abuse patient.[facility] Center[facility] the event this information is protected by the Federal Confidentiality of Alcohol and Drug Abuse Patient Records regulations: The Federal rules restrict any use of the information to criminally investigate or prosecute any alcohol or drug abuse patient.[facility] CenterIn the event this information is protected by the Federal Confidentiality of Alcohol and Drug Abuse Patient Records regulations: The Federal rules restrict any use of the information to criminally investigate or prosecute any alcohol or drug abuse patient.[facility] Center[facility] the event this information is protected by the Federal Confidentiality of Alcohol and Drug Abuse Patient Records regulations: The Federal rules restrict any use of the information to criminally investigate or prosecute any alcohol or drug abuse patient.[facility] CenterIn the event this information is protected by the Federal Confidentiality of Alcohol and Drug Abuse Patient Records regulations: The Federal rules restrict any use of the information to criminally investigate or prosecute any alcohol or drug abuse patient.[facility] CenterIn the event this information is protected by the Federal Confidentiality of Alcohol and Drug Abuse Patient Records regulations: The Federal rules restrict any use of the information to criminally investigate or prosecute any alcohol or drug abuse patient.[facility] CenterIn the event this information is protected by the Federal Confidentiality of Alcohol and Drug Abuse Patient Records regulations: The Federal rules restrict any use of the information to criminally investigate or prosecute any alcohol or drug abuse patient.[facility] CenterIn the event this information is protected by the Federal Confidentiality of Alcohol and Drug Abuse Patient Records regulations: The Federal rules restrict any use of the information to criminally investigate or prosecute any alcohol or drug abuse patient.[facility] CenterIn the event this information is protected by the Federal Confidentiality of Alcohol and Drug Abuse Patient Records regulations: The Federal rules restrict any use of the information to criminally investigate or prosecute any alcohol or drug abuse patient.[facility] CenterIn the event this information is protected by the Federal Confidentiality of Alcohol and Drug Abuse Patient Records regulations: The Federal rules restrict any use of the information to criminally investigate or prosecute any alcohol or drug abuse patient.[facility] CenterIn the event this information is protected by the Federal Confidentiality of Alcohol and Drug Abuse Patient Records regulations: The Federal rules restrict any use of the information to criminally investigate or prosecute any alcohol or drug abuse patient.[facility] CenterIn the event this information is protected by the Federal Confidentiality of Alcohol and Drug Abuse Patient Records regulations: The Federal rules restrict any use of the information to criminally investigate or prosecute any alcohol or drug abuse patient.[facility] CenterIn the event this information is protected by the Federal Confidentiality of Alcohol and Drug Abuse Patient Records regulations: The Federal rules restrict any use of the information to criminally investigate or prosecute any alcohol or drug abuse patient.[facility] CenterIn the event this information is protected by the Federal Confidentiality of Alcohol and Drug Abuse Patient Records regulations: The Federal rules restrict any use of the information to criminally investigate or prosecute any alcohol or drug abuse patient.[facility] CenterIn the event this information is protected by the Federal Confidentiality of Alcohol and Drug Abuse Patient Records regulations: The Federal rules restrict any use of the information to criminally investigate or prosecute any alcohol or drug abuse patient.[facility] CenterIn the event this information is protected by the Federal Confidentiality of Alcohol and Drug Abuse Patient Records regulations: The Federal rules restrict any use of the information to criminally investigate or prosecute any alcohol or drug abuse patient.[facility] CenterIn the event this information is protected by the Federal Confidentiality of Alcohol and Drug Abuse Patient Records regulations: The Federal rules restrict any use of the information to criminally investigate or prosecute any alcohol or drug abuse patient.[facility] CenterIn the event this information is protected by the Federal Confidentiality of Alcohol and Drug Abuse Patient Records regulations: The Federal rules restrict any use of the information to criminally investigate or prosecute any alcohol or drug abuse patient.[facility] CenterIn the event this information is protected by the Federal Confidentiality of Alcohol and Drug Abuse Patient Records regulations: The Federal rules restrict any use of the information to criminally investigate or prosecute any alcohol or drug abuse patient.[facility] CenterIn the event this information is protected by the Federal Confidentiality of Alcohol and Drug Abuse Patient Records regulations: The Federal rules restrict any use of the information to criminally investigate or prosecute any alcohol or drug abuse patient.[facility] CenterIn the event this information is protected by the Federal Confidentiality of Alcohol and Drug Abuse Patient Records regulations: The Federal rules restrict any use of the information to criminally investigate or prosecute any alcohol or drug abuse patient.[facility] CenterIn the event this information is protected by the Federal Confidentiality of Alcohol and Drug Abuse Patient Records regulations: The Federal rules restrict any use of the information to criminally investigate or prosecute any alcohol or drug abuse patient.[facility] UNRECOGNIZED CONTENT PROVIDED BELOW FOR [...] dyspepsia,gerd,dysphagia 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, 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 a 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 DATE CREATED AUTHOR AUTHOR'S ORGANIZATIO N 06/27/2020 [facility] DATE CREATED AUTHOR AUTHOR'S ORGANIZATIO N 06/28/2020 [...] would send Rx for phenergan to [facility]. Reports she's had nausea for weeks. [...] panel was not drawn, left message with [facility] lab to contact patient for redraw Pierce [...] or do not improve. Taty Perea APRN MATERIAL CONTROL CLERK documented in this encounterTelephone Encounter - Narcisa [...]
--- OUTSIDE RECORDS SUMMARY | 2020-07-01 09:54 | XMS RPT_ITS | CCD ---
:1980 External Reference #:[id number] Author Organization [facility] Care Team Providers Name Role Phone Hanna [...] Cephalexin Itching 10-20-2019 - [facility] ([id number]) Chlorhexidine Rash 10-29-2016 - [facility] (37513) CONTRAST MEDIA, Moderate Mello Pomeren e IODINE RELATED ([facility]) Repository (Qualifier Value) Ibuprofen GI Upset Low 06-18-2016 - [facility] (53295) Ibuprofen Moderate [facility] ([facility]) Repository (Qualifier Value) Iodine Shortness of Breath Low 05-17-2008 - [facility] (06276) Ketorolac Moderate [facility] ([facility]) Repository (Qualifier Value) Ketorolac Rash 05-25-2020 - [facility] (78014) metroNIDAZOLE Moderate [facility] ([facility]) Repository (Qualifier Value) Penicillins [facility] Penicillins Moderate [facility] ([facility]) Repository (Qualifier Value) predniSONE Other: See Comments Low 06-18-2016 [facility] (68830) Promethazine Moderate [facility] ([facility]) Repository (Qualifier Value) Salicylic Acid Other: See Comments Low 01-27-2011 - [facility] (66708) traMADol Rash 05-25-2020 - [facility] (12525) Medications Medication Name Sig Date Prescriber Location Albuterol albuterol HFA (VENTOLIN [facility] Provider [facility] (04637) HFA) 90 mcg/actuation inhaler Inhale 2 Puffs as instructed every 4 hours as needed. 0 Active Comment: Inhale 2 Puffs as instructed every 4 hours as needed. Bifidobacterium Bifidobacterium 04-26-2020 - Johnny [facility] (ALIGN) 4 mg 07-25-2020 [facility] (04283) cap Take 1 capsule by mouth once daily. 30 capsule 2 04/26/2020 07/25/2020 Active Comment: Take 1 capsule by mouth once daily. Clindamycin clindamycin (CLEOCIN) 06-15-2020 - Jonh (Res) [facility] 300 mg capsule 06-26-2020 [facility] (61297) Indications: Incisional infection Take 1 capsule by mouth four times daily for 5 days. 20 capsule 0 06/21/2020 06/26/2020 Active Comment: Take 1 capsule by mouth four times daily for 5 days. diazePAM diazePAM (VALIUM) 5 mg 06-05-2020 - [facility] tablet Indications: 06-07-2020 Mala [facility] (38458) Pancreatic cyst Take 1 tablet by mouth once daily for 2 days. 2 tablet 0 06/05/2020 06/07/2020 Active Comment: Take 1 tablet by mouth once daily for 2 days. Dicyclomine dicyclomine (BENTYL) 04-26-2020 - Johnny Mccall [facility] 10 mg capsule Take 1 05-24-2020 [facility] (35590) capsule by mouth before meals and at bedtime. Use as directed 90 capsule 1 04/26/2020 05/24/2020 Discontinued Comment: Take 1 capsule by mouth befo re meals and at bedtime. Use as directed diphenhydrAMINE diphenhydrAMINE (BENADRYL) 03-29-2019 [facility] Provide r 25 mg capsule Take 50 mg (44 195) by mouth every 6 hours as needed. 0 03/29/2019 Active Comment: Take 50 mg by mouth every 6 hours as needed. Docusate docusate sodium 06-21-2020 Jonh (Res) (COLACE) 100 mg capsule [place] (441 95) Take 1 capsule by mouth twice daily. 60 capsule 0 06/21/2020 Active Comment: Take 1 capsule by mouth twic e daily. Estradiol estradiol (ESTRACE) 2 mg 03-23-2020 [facility] Provider [facility] (50996) tablet Take 2 mg by mouth once daily. 0 03/23/2020 Active Comment: Take 2 mg by mouth once kehinde y. HYDROmorphone HYDROmorphone 06-28-2020 - Mala [facility] Cli nghia (HYDROMORPHONE) 2 mg 07-05-2020 (44057) tablet Indications: Post-op pain Take 1 tablet by mouth every 4 hours as needed for Pain for up to 7 days. 40 tablet 0 06/28/2020 07/05/2020 Active HYDROmorphone (HYDROMORPHONE) 06-12-2020 - 06-19-2020 [facility] 2 mg tablet Indications: (69326) Post-op pain Take 1 tablet by mouth [...] Hyoscyamine hyoscyamine (LEVSIN) 05-24-2020 - [facility] mg tablet Take 06-26-2020 [facility] (01990) 1 tablet by mouth every 6 hours as needed. 60 tablet 1 06/26/2020 Active Comment: Take 1 tablet by mouth every 6 hours as needed. iv contrast (will iv contrast (will be 06-05-2020 - Mala Almendarez [facility] be provided with provided with 06-06-2020 Mala Almendarez (27326) radiology test) radiology test) MRI ABDOMEN Inject, [...] metroNIDAZOLE metroNIDAZOLE (FLAGYL) 04-26-2020 - Johnny Mccall [facility] 500 mg tablet Take 1 05-03-2020 [facility] (20482) tablet by mouth three times daily for 7 days. 21 tablet 0 04/26/2020 05/03/2020 Active Comment: Take 1 tablet by mouth three times daily for 7 days. Naloxone naloxone 4 mg/actuation 06-21-2020 Jonh (Res) [facility] nasal spray (NARCAN) Use [place] (61 195) 1 spray in one nostril as [...] oxyCODONE IR 06-21-2020 - Maria Luisa Trejo (ROXICODONE) 5 mg 06-26-2020 (11460) immediate release tablet Indications: Benign liver cyst Take 1 tablet by mouth every 8 hours as needed for up to 5 days. 15 tablet 0 06/21/2020 06/26/2020 Active oxyCODONE IR 05-29-2020 - Sorin (Res) (ROXICODONE) 5 mg 06-03-2020 Alhalal[facility] (12483) immediate release tablet Indications: Intractable nausea and [...] Cl inic (PROTONIX) 40 mg 04-30-2020 [facility] (76801) tablet Take 1 tablet by mouth daily before breakfast. Take on empty stomach, 1/2 hr before meal. 30 tablet 3 04/30/2020 Active Comment: Take 1 tablet by mouth daily before breakfast. Take on empty stomach, 1/2 hr before meal. POLYETHYLENE GLYCOL polyethylene glycol 06-21-2020 - Jonh ([facility] 3350 3350 (MIRALAX) 17 07-22-2020 [facility] (44 195) gram/dose powder Dissolve 1 packet in 4-8 ounces of liquid and drink by mouth once daily as directed. 476 g 0 06/21/2020 07/22/2020 Active Comment: Dissolve 1 packet in 4-8 oun simi of liquid and drink by mouth once daily as directed. POLYETHYLENE GLYCOL peg 3350-Electrolytes 04-26-2020 - Johnny Mccall [place] 3350 / Potassium (GOLYTELY) 04-26-2020 [facility] (441 95) Chloride / Sodium 236-22.74-6.74 -5.86 Johnny Mccall Bicarbonate / gram suspension [facility] Sodium Chloride / Indications: sodium sulfate [...] 1 mg cap Take 1 [facility] Provider (67033) mg by mouth daily at bedtime. 0 Active Comment: Take 1 mg by mouth daily at bedtime. pregabalin pregabalin (LYRICA) 300 06-25-2020 - Mala Almendarez [facility] mg capsule Indications: 07-09-2020 (441 95) Post-op pain Take 1 capsule by mouth twice daily for 14 days. 28 capsule 0 06/25/2020 07/09/2020 Active Comment: Take 1 capsule by mouth twic e daily for 14 days. Promethazine promethazine (PHENERGAN) 05-24-2020 [facility] 25 mg tablet Take 1 [facility] (95776) tablet by mouth every 8 hours as needed (for nausea). 10 tablet 0 05/24/2020 Active Comment: Take 1 tablet by mouth every 8 hours as needed (for nausea). QUEtiapine QUEtiapine (SEROQUEL) 02-23-2020 [facility] Take 1 (32193) tablet by mouth once daily. 0 02/23/2020 Active Comment: Take 1 tablet by mouth once daily. Sertraline sertraline (ZOLOFT) 100 02-23-2020 Marcelino Ferreira [facility] mg tablet Take 1 tablet (441 95) by mouth once daily. 0 02/23/2020 Active Comment: Take 1 tablet by mouth once daily. Sucralfate sucralfate (CARAFATE) 1 05-24-2020 [facility] hu gram tablet Take 1 (75498) tablet by mouth four times daily. 30 tablet 0 05/24/2020 Active Comment: Take 1 tablet by mouth four times daily. Problems Active Problems Category Problem Name Status Date Location Abdominal pain Lower abdominal pain, Active 10-31-2019 - Mello Johnston unspecified [facility] (16520) Anxiety disorders Generalized anxiety Active 03-31-2016 - [facility] disorder (24824) Esophageal disorders Gastroesophageal reflux Active disease (07558) Headache; including Migraine without aura [facility] 05-17-2008 [facility] (99917) Mood disorders Reactive depression Active 03-31-2016 - [facility] (situational) (38347) Nausea and vomiting Nausea and vomiting Active 05-25-2020 - [facility] (98316) Other disorders of Indigestion Active stomach and duodenum (68591) Other gastrointestinal Abdominal bloating Active disorders (12641) Other gastrointestinal Dysphagia Active [facility] disorders (29464) Other gastrointestinal Loose stool Active [facility] disorders (79464) Other gastrointestinal Personal history of Active disorders other diseases of the (20728 ) digestive system Other gastrointestinal Diarrhea Active [facility] disorders (31720) Other infections; Local infection of wound Active including parasitic (70004) Other liver diseases Liver cyst Active 05-24-2010 - [facility] (67121) Other nervous system Postoperative pain Active 06-19-2020 - [facility] disorders (28087) Other nervous system Chronic pain syndrome Active 06-06-2020 - disorders (20796) Other non-traumatic joint Shoulder pain Active [facility] disorders (47888) Other upper respiratory Allergic rhinitis Active 05-17-2008 - disease (02983) Pancreatic disorders (not Idiopathic acute Active diabetes) pancreatitis (40914) Paralysis Weakness of right leg Active 02-23-2017 - [facility] (70400) Substance-related Smoker Active 05-17-2008 - Melloreina Baumaner willem disorders [facility] (47257) Unclassified Patient encounter status Active 05-17-2008 - [facility] (75326) Past or Other Problems Category Problem Name Status Date Location Allergic reactions Allergy status to Completed 10-31-2019 - Mello Pomeremirtha narcotic agent status [facility] (30918) Blindness and vision Blurring of visual Completed 02-23-2017 - [facility] defects image (50223) Calculus of urinary Kidney stone Completed 05-17-2008 - [facility] tract (80292) Diabetes mellitus Impaired fasting Completed 05-17-2008 - [facility] without complication glycaemia (79532) Miscellaneous mental Adjustment insomnia Completed 03-31-2016 - health disorders (32925) Other connective tissue Muscle weakness of Completed 02-23-2017 - disease upper limb (46733) Other connective tissue Trochanteric bursitis Completed 06-18-20 16 - disease (05442) Other diseases of Hydroureter Completed 02-05-2017 - kidney and ureters (83630) Other diseases of Hydronephrosis Completed 02-05-2017 - [facility] kidney and ureters (21342) Other lower respiratory Multiple nodules of Completed 01-22-2020 - disease lung (73912) Other nervous system Numbness of face Completed 02-23-2017 - [facility] disorders (09803) Other nervous system Numbness of lower limb Completed 02-23-2017 - disorders (99275) Other nervous system Numbness of upper limb Completed 02-23-2017 - disorders (12259) Other non-traumatic Hip pain Completed 06-18-2016 - [facility] joint disorders (58307) Other screening for MRI of lumbar spine Completed 02-23-2017 - [facility] suspected conditions abnormal (69572) (not mental disorders or infectious disease) Ovarian cyst Cyst of ovary Completed 07-15-2012 - [facility] ic (45305) Residual codes; Acquired absence of Completed 10-31-2019 - [facility] unclassified both cervix and uterus [facility] (96574) Residual codes; Acquired absence of Completed 10-31-2019 - [facility] unclassified other specified parts [facility] of digestive tract (11875) Residual codes; FH: Diabetes mellitus Completed 05-17-2008 - [facility] unclassified (23458) Spondylosis; Pain in cervical spine Completed 06-18-2016 - [facility] intervertebral disc (36267) disorders; other back problems Results Result Name Value Range Unit Interpretation Flag Date Location obsolete on 2020-06 OBSOLETE Refill (AKPRAD) Normal 06-28-2020 Akr on SALLY Dawson ([id number]) 1980 F Medical Date Time Provider Department Center 06/28/20 MALA ALMENDAREZ (90446) During your visit today, we recorded the [...] OBSOLETE Refill (GSTNOR) Normal 06-26-2020 Isaías veland [facility] SALLY VARGAS ([id number]) 1980 [facility] Time Provider Department (93056) 06/26/20 JOHNNY IWNN GSTNOR During your visit today, we recorded [...] Normal 06-25-2020 Ak[facility] on General SALLY VARGAS ([id number]) 1980 F Medical Date Time Provider Department Center 06/25/20 MALA ALMENDAREZ (09323) During your visit today, we recorded the [...] 06/25/20 progress on 2020-06 PROGRESS HNO ID: [id number] Normal 06-21-2020 Milka Dumont Author: Maria Luisa Joyner [facility] Service: Pain Management (95978) Author Type: Physician Type: Progress Notes Filed: [...] Approx. 3 cigarettes daily-1 pack every w mohegan Substance Use Topics - Alcohol use: Yes [...] and migraine headache. She was referred to [facility] management but was unable to go [...] pain. Small quantity oxycodone prescription sent to [facility] Maria Luisa Trejo MD plan of care on PLAN OF CARE HNO ID: [id number] Normal 06-21-20 [facility][1] Author: Bekah Holman (Pharmacist) [facility] (18264) Service: Pharmacy Author Type: Pharmacist Type: Plan [...] PHARMACIST June 21, 2020 11:55 AM Pager: [phone] 06/21/2020 11:55 AM Medication List START taking [...] Your Medications These medications were sent to [facility] [address] [place] [address] Hours: Thursday-Thursday, 8am-6:30pm ? clindamycin 300 mg capsule ? docusate sodium 100 mg capsule ? naloxone 4 mg/actuation nasal spray ? oxyCODONE IR 5 mg immediate release tablet ? polyethylene glycol 3350 17 gram/dose powder nursing prog on NURSING HNO ID: [id number] Normal 06-21-2020 [place] PROG Author: Silvia (Lucius) LUCIUS Gomez General Service: ? Medical Author Type: Registered Nurse Center Type: Nursing Progress Note (66346) Filed: 06/20/2020 11:32 PM Note Text: Nursing Progress Note Patient Name: Sally Vargas Patient Location: [id number] Pt has been eating better and was told by the doctor that wh en her intake improved the fluids could be discontinued. Pt does not want fluids to continue so RN stopped fluids on pt's request. Doctor note i ndicated what the pt said. This note was completed by: Silvia Gomez RN progress on 2020-06 PROGRESS HNO ID: [id number] Normal 06-20-2020 [place] Author: Jonh Urrutia DO General Service: General Surgery Medical Author Type: Resident Center Type: Progress Notes (42607) Filed: 06/20/2020 8:38 AM Note Text: Attestation signed by Mala Almendarez at 06/20/2020 2:18 PM I saw and evaluated the patient. Discussed with the reside nt and agree with resident's findings and plan as documented in the resident's note. Elective General Surgery Progress Note SERVICE DATE: 06/20/2020 [facility] General Surgery Service Pager: For questions or concerns Mon-Fri 6a-5p please page [phone]. After 5pm and on Weekends and Holidays, please page [phone]. SUBJECTIVE: Doing better this morning. Says pain [...] in ICU or 2179 if on RNF. plan of care on PLAN OF CARE HNO ID: [id number] Normal 06-20-20 [facility][1] [facility] (73463[facility] Service: General Surgery Author Type: Resident Type: [...] history physical on 2020-06-20 HISTORY HNO ID: [id number] Normal 06-20-2020 [place] PHYSICAL Author: Nancy Abebe General Service: General Surgery Medical Author Type: Resident Center Type: [facility] ([id number]) Filed: 06/19/2020 11:38 PM Note Text: Attestation signed by Mala Almendarez at 06/20/2020 2:18 PM Attending Note I personally saw and examined the patient. I reviewed the resident's note. I agree with the resident's assessment and plan with the [facility] revisions and/or additions: CT scan reviewed. Will [...] get worse. She was se nt to [facility] ED, where she was given IV Dilauded and transferred here to [facility]. Pt reports that she is urinating, passing flatus and BMs. No N/ V. No fevers or chills. Last PO was at 1300h. Pt has a h/o multiple abd surgeries. Reformed smoker x5 anai hs. FUNCTIONAL STATUS: Independent PAST MEDICAL HISTORY Diagnosis Date - Allergic rhinitis, cause unspecified 05/17/2008spring and summer - Benign liver cyst 05/24/2010 CT scan at [facility] 11/2009 and 04/2010 showe 4 mm increase in size . No pain. No elevated LFTs on 03/11/2010. - Calculus of kidney 05/17/[address] Nicolas: Hospitalized age 20, and again later -- no procedures so far ([facility], most, 1995 [facility]) - Cancer (HCC) - Diverticulosis - Dysmenorrhea [...] Approx. 3 cigarettes daily-1 pack every w mohegan Substance Use Topics - Alcohol use: Yes [...] oz (86.0kg) SpO2 100% LMP 08/10/2006 [place] 35.84 kg/(m2). O2 Therapy: Room Air DATA: [...] questions or concerns Mon-Fri 6a-5p please page [phone]. After 5pm and on Weekends and Holidays, please page [phone] if in ICU or [phone] abd/pel w ivcon on 2020-06-20 CT ABD/PEL W Final Report Normal 06-20-2020 [facility] on General IVCON DATE OF EXAM: Jun 20 2020 11:59AM [facility] 0530 - CT ABD/PEL W IVCON / (89903) PROCEDURE REASON: Abd pain, unspecified Physician Interpretation [...] ed portions of the heart are unremarkable. Animal Rescuer (topogram) images: No additional findings. IMPRESSION: 1. Postsurgical changes in the posterior right hepatic dome with residual 8.3 cm cystic cavity with trace likely postsurgical gas, but no peripheral enhancement to suggest acute inflammation. 2. Other hepatic cyst are unchanged. 3. No acute intra-abdominal or pelvic findings. Licensed Club Manager: PSCB Transcribe Date/Time: Jun 20 2020 12:16P Dictated by : NILAM OVIEDO MD This examination was interpreted and the report reviewed and electronically signed by: NILAM OVIEDO MD on Jun 20 2020 12:28PM EST consult on CONSULT HNO ID: [id number] Normal 06-20-2020 [facility] Author: Maria Luisa Joyner [facility] Service: Pain Management (33091) Author Type: Physician Type: Consults Filed: 06/20/2020 [...] 300 mg capsule, Take 1 capsule by [facility] four times daily for 5 days., [...] Approx. 3 cigarettes daily-1 pack every w mohegan Substance Use Topics - Alcohol use: Yes [...] and migraine headache. She was referred to [facility] pain management but was unable to go [...] health on 03-07-07 ALLIED HEALTH HNO ID: [id number] Normal 020 [facility] Author: Holly (Rt) Audi [facility] Service: Radiology ( 36459) Author Type: Pocketbook Maker Type: Allied Health Filed: 06/20/2020 12:04 PM [...] unstable renal function, e.g. those with ac kashia kidney injury, the eGFR may not accurately [...] 3.9-4.9 g/dL Normal 06-19-2020 [facility] (90636) Comment: Order Comment: Specimen Type : BLOOD SPECIMEN Performed By: #### 63606-5 # ###[facility]ORYCLIA [id number] [facility] [address] ALP [Catalytic activity/Vol] 110 34-123 U/L Normal 1 [facility] (00 000) Comment: Order Comment: Specimen Type : BLOOD SPECIMEN Performed By: #### 05247-4 # ###[facility]CLIA [id number] [place] [address] ALT With P-5'-P [Catalytic 16 7-38 U/L Normal [facility][1] activity/Vol] [facility] (94375) Comment: Order Comment: Specimen Type : BLOOD SPECIMEN Performed By: #### 35172-7 # ###[facility]ORYCLIA [id number] [place] [address] Anion gap [Moles/Vol] 13 9-18 mmol/L Normal 06-19-20 20 [facility] (89237) Comment: Order Comment: Specimen Type : BLOOD SPECIMEN Performed By: #### 38135-3 # ###[facility]ORYCLIA [id number] [place] [address] AST With P-5'-P [Catalytic 19 13-35 U/L Normal [facility] Medical activity/Vol] [facility] (37451) Comment: Order Comment: Specimen Type : BLOOD SPECIMEN Performed By: #### 74377-0 # ###[facility]ORYCLIA [id number] [facility] [address] Bilirubin [Mass/Vol] 0.2 0.2-1.3 mg/dL Normal 0 [facility] (44212) Comment: Order Comment: Specimen Type : BLOOD SPECIMEN Performed By: #### 49756-2 # ###[facility]ORYCLIA [id number] [place] [address] Calcium [Mass/Vol] 9.1 8.5-10.2 mg/dL Normal 06-19-2020 [facility] (50468) Comment: Order Comment: Specimen Type : BLOOD SPECIMEN Performed By: #### 78491-0 # ###[facility]ATORYCLIA [id number] [place] [address] Chloride [Moles/Vol] 102 97-105 mmol/L Normal 0 [facility] (11564) Comment: Order Comment: Specimen Type : BLOOD SPECIMEN Performed By: #### 96313-8 # ###[facility]ORYCLIA [id number] [place] [address] CO2 [Moles/Vol] 22 22-30 mmol/L Normal 06-19-2020 [facility] (49544) Comment: Order Comment: Specimen Type : BLOOD SPECIMEN Performed By: #### 33702-3 # ###[facility]ATORYCLIA [id number] [place] [address] Creatinine [Mass/Vol] 0.88 0.58-0.96 mg/dL Normal 06-19-20 20 [facility] (00 000) Comment: Order Comment: Specimen Type : BLOOD SPECIMEN Performed By: #### 14287-7 # ###[facility]ORATORYCLIA [id number] [place] [address] GFR/1.73 sq M.predicted >60 mL/min/{1.73_m2} Normal 06-19-2020 [facility] MDRD (S/P/Bld) [[facility] rate/Area] (95337) Comment: Order Comment: Specimen Type : BLOOD [...] accurately reflect actual GFR. Performed By: #### 58457-2 # ###[facility]ATORYCLIA [id number] [facility] [address] Glucose [Mass/Vol] 100 74-99 mg/dL High 06-19-2020 [facility] (06870) Comment: Order Comment: Specimen Type : BLOOD [...] for diagnosis of diabetes. Reference: Standards of [facility] Care in Diabetes 2016, [place] [employer]. Diabetes Care. 2016.39(Suppl 1). Performed By: #### 80244-3 # ###[facility]ATORYCLIA [id number] [facility] [place] [address] Potassium [Moles/Vol] 3.8 3.7-5.1 mmol/L Normal 06-19-20 [facility] (00 000) Comment: Order Comment: Specimen Type : BLOOD SPECIMEN Performed By: #### 82490-5 # ###[facility]ATORYCLIA [id number] [place] [address] Protein [Mass/Vol] 7.7 6.3-8.0 g/dL Normal 06-19-2020 [facility] (61120) Comment: Order Comment: Specimen Type : BLOOD SPECIMEN Performed By: #### 30488-6 # ###[facility]ATORYCLIA [id number] [facility] [place] [address] Sodium [Moles/Vol] 137 136-144 mmol/L Normal 06-19-2020 [facility] (53884) Comment: Order Comment: Specimen Type : BLOOD SPECIMEN Performed By: #### 59976-0 # ###[facility]ORYCLIA [id number] [place] [place] [address] Urea nitrogen [Mass/Vol] 14 7-21 mg/dL Normal 06-19 [facility] (48145) Comment: Order Comment: Specimen Type : BLOOD SPECIMEN Performed By: #### 85409-7 # ###[facility]ORATORYCLIA [id number] [place] [address] cbc w auto diff bld on 2020-06-19 Basophils (Bld) [#/Vol] 0.08 <0.11 k/uL Normal 2019 [facility] (00 000) Comment: Order Comment: Specimen Type : BLOOD SPECIMEN Performed By: #### 36366-0 # ###[facility]ATORYCLIA [id number] [place] [address] Basophils/100 WBC (Bld) 0.7 % Normal 2019 [facility] ([address]) Comment: Order Comment: Specimen Type : BLOOD SPECIMEN Performed By: #### 87643-0 # ###[facility]ORATORYCLIA [id number] [place] [address] Differential cell count method Auto Normal 06-19-2020 [facility] (Bld[facility] (00 000) Comment: Order Comment: Specimen Type : BLOOD SPECIMEN Performed By: #### 53078-8 # ###[facility]ORATORYCLIA [id number] [place] [address] Eosinophils (Bld) [#/Vol] 0.71 <0.46 k/uL High 10 [facility] (00 000) Comment: Order Comment: Specimen Type : BLOOD SPECIMEN Performed By: #### 14704-8 # ###[facility]ORATORYCLIA [id number] [facility] [place] [address] Eosinophils/100 WBC (Bld) 6.0 % Normal [facility] (01617) Comment: Order Comment: Specimen Type : BLOOD SPECIMEN Performed By: #### 34797-1 # ###[facility] LABORATORYCLIA [id number] [place] [address] Erythrocyte distribution 13.3 11.5-15.0 % Normal 06-19 [facility][1] width (RBC) [Ratio] Center (36915) Comment: Order Comment: Specimen Type : BLOOD SPECIMEN Performed By: #### 53228-1 # ###[facility]ORATORYCLIA [id number] [place] [address] Hematocrit (Bld) [Volume 37.8 36.0-46.0 % Normal 06-19 [facility][1] fraction] Center (00 000) Comment: Order Comment: Specimen Type : BLOOD SPECIMEN Performed By: #### 23709-5 # ###[facility] LABORATORYCLIA [id number] [place] [address] Hemoglobin (Bld) 12.1 11.5-15.5 g/dL Normal 06-19-2020 [facility] [Mass/Vol] [place] (0 0000) Comment: Order Comment: Specimen Type : BLOOD SPECIMEN Performed By: #### 26821-7 # ###[facility] LABORATORYCLIA [id number] [place] [address] IMMATURE GRAN % 1.5 % Normal 06-19-2020 [facility] (84564) Comment: Order Comment: Specimen Type : BLOOD SPECIMEN Performed By: #### 05805-3 # ###[facility]ORATORYCLIA [id number] [place] [address] IMMATURE GRAN ABS 0.18 <0.10 k/uL High 06-19-2020 [facility] (10913) Comment: Order Comment: Specimen Type : BLOOD SPECIMEN Result Comment: Differential confirmed by visual scan of peripheral blood smear slide Performed By: #### 52569-4 # ###[facility] LABORATORYCLIA [id number] [facility] [address] Lymphocytes (Bld) [#/Vol] 4.79 1.00-4.00 k/uL High [facility] () Comment: Order Comment: Specimen Type : BLOOD SPECIMEN Performed By: #### 29637-5 # ###[facility] LABORATORYCLIA [id number] [facility] [address] Lymphocytes/100 WBC (Bld) 40.6 % Normal [facility] (74174) Comment: Order Comment: Specimen Type : BLOOD SPECIMEN Performed By: #### 10934-0 # ###[facility] LABORATORYCLIA [id number] [facility] [place] [address] MCH (RBC) [Entitic mass] 28.6 26.0-34.0 pg Normal 06-19 [facility] () Comment: Order Comment: Specimen Type : BLOOD SPECIMEN Performed By: #### 56999-9 # ###[facility] LABORATORYCLIA [id number] [facility] [address] MCHC (RBC) [Mass/Vol] 32.0 30.5-36.0 g/dL Normal 06-19-20 [facility] () Comment: Order Comment: Specimen Type : BLOOD SPECIMEN Performed By: #### 05840-5 # ###[facility] LABORATORYCLIA [id number] [facility] [address] MCV (RBC) [Entitic vol] 89.4 80.0-100.0 fL Normal 06-19 [facility] ( 000) Comment: Order Comment: Specimen Type : BLOOD SPECIMEN Performed By: #### 19576-0 # ###[facility] LABORATORYCLIA [id number] [facility] [address] Monocytes (Bld) [#/Vol] 0.53 <0.87 k/uL Normal 2019 [facility] ( 000) Comment: Order Comment: Specimen Type : BLOOD SPECIMEN Performed By: #### 98724-7 # ###[facility] LABORATORYCLIA [id number] [facility] [address] Monocytes/100 WBC (Bld) 4.5 % Normal 2019 [facility] (79685) Comment: Order Comment: Specimen Type : BLOOD SPECIMEN Performed By: #### 73014-9 # ###[facility]ORATORYCLIA [id number] [facility] [place] [address] Neutrophils (Bld) [#/Vol] 5.51 1.45-7.50 k/uL Normal [facility] (00 000) Comment: Order Comment: Specimen Type : BLOOD SPECIMEN Performed By: #### 89257-5 # ###[facility]ORATORYCLIA [id number] [place] [place] [address] Neutrophils/100 WBC (Bld) 46.7 % Normal [facility] (52020) Comment: Order Comment: Specimen Type : BLOOD SPECIMEN Performed By: #### 46591-7 # ###[facility]ORATORYCLIA [id number] [place] [address] Nucleated RBC (Bld) <0.01 <0.01 10*3/uL Normal 06-19-2020 [facility][1] [#/Vol] [place] (00 000) Comment: Order Comment: Specimen Type : BLOOD SPECIMEN Performed By: #### 07891-1 # ###[facility]ORATORYCLIA [id number] [place] [address] Nucleated RBC/100 WBC 0.0 0.0 /100 WBC Normal 06-19-20 20 [facility][1] (Bld) [Ratio] Center (88673) Comment: Order Comment: Specimen Type : BLOOD SPECIMEN Performed By: #### 87411-8 # ###[facility] LABORATORYCLIA [id number] [facility] [place] [address] Platelet mean volume (Bld) 10.4 9.0-12.7 fL Normal [facility][1] [Entitic vol] Center (40228) Comment: Order Comment: Specimen Type : BLOOD SPECIMEN Performed By: #### 37502-9 # ###[facility]ORATORYCLIA [id number] [facility] [place] [address] Platelets (Bld) [#/Vol] 324 150-400 k/uL Normal 2019 [facility] (00 000) Comment: Order Comment: Specimen Type : BLOOD SPECIMEN Performed By: #### 39994-7 # ###[facility] LABORATORYCLIA [id number] [place] [address] RBC (Bld) [#/Vol] 4.23 3.90-5.20 m/uL Normal 06-19-2020 [facility] (92870) Comment: Order Comment: Specimen Type : BLOOD SPECIMEN Performed By: #### 65474-7 # ###[facility] LABORATORYCLIA [id number] [facility] [address] RED CELL MORPH Normal Normal 06-19-2020 [facility] (44373) Comment: Order Comment: Specimen Type : BLOOD SPECIMEN Performed By: #### 72200-2 # ###[facility] LABORATORYCLIA [id number] [facility] [place] [address] WBC (Bld) [#/Vol] 11.80 3.70-11.00 k/uL High 06-19-2020 [facility] (52811) Comment: Order Comment: Specimen Type : BLOOD SPECIMEN Performed By: #### 51749-5 # ###[facility] LABORATORYCLIA [id number] [place] [place] [address] cnpn on 2020-06-15 CNPN Telephone (AGGENS6) Normal 06-15-2020 [place] SALLY Dawson ([id number]) 1980 F Medical Date Time Provider Department Center 06/15/20 TATY PEREA (SANDER HAND, CARRIAGE SETTER) AGGENS6 (48277) During your visit today, we recorded the following informati on about you: Taty Perea APRN.CARRIAGE SETTER 06/15/2020 11:28 AM Signed Patient called the [...] She refuses to go to [facility] ER to be seen because they treat her poorly. I will send an RX to her pharmacy for an antibiotic. She is to notify the office if her symptoms worsen or do not improve. Taty Perea APRN, CARRIAGE SETTER Allergies As of Date: 06/15/2020 Noted Allergy [...] 06/15/20 progress on 2020-05 PROGRESS HNO ID: [id number] Normal 06-13-2020 [facility] Author: Kimmie Jennings General Service: General Surgery Medical Author Type: Resident Center Type: Progress Notes (22734) Filed: 06/13/2020 6:55 AM Note Text: Attestation signed by Mala Almendarez at 06/18/2020 1:28 PM I saw and evaluated the patient. Discussed with the reside nt and agree with resident's findings and plan as documented in the resident's note. [facility] Progress Note SERVICE DATE: 06/13/2020 [facility] Service Pager: For questions or concerns Mon-Fri 6a-5p please page [phone]. After 5pm and on Weekends and Holidays, [...] 0659 06/13/20 0700 - 06/14/20 0659 Shift 0397-9110 1237-2642 8108-9129 24 Hour Total 5167-1604 0251-1160 4852-7435 24 Hour Total INTAKE PO 240 200 [...] questions or concerns Mon-Thu 6a-5p please page [phone]. After 5pm and on Weekends and Holidays, please page [phone] if in ICU or [phone] if on RNF. PROGRESS HNO ID: [id number] Normal 06-13-2020 [facility] Author: Mer (Rn) LUCIUS Bejarano General Service: Nursing Med ical Author Type: Registered Nurse Center Type: Progress Notes (27033) Filed: 06/13/2020 12:39 AM Note Text: Patient IV got infiltrated. Patient requested IV only on her rt AC with one try. Refused other spots with better veins. Failed first attempt and patient does not want to have another IV. Surgery resident notified. plan of care on PLAN HNO ID: [id number] Normal 06-13-2020 [facility] OF Author: Aureliano Dietz DO General CARE Service: General Surgery Medical Author Type: Resident Center Type: Plan of Care ( 33782) Filed: 06/13/2020 4:57 PM Note Text: Attestation [...] Phosphate [Mass/Vol] 3.9 2.7-4.8 mg/dL Normal 0 [facility] (06971) Comment: Performed By: #### URIN2 ### # [address] [address] mdrd gfr on 2020-05 GFR/1.73 sq M >60 >60mL/min/1.73m2 mL/min/{1.73_m2} Normal [facility] predicted among [facility] non-blacks MDRD (000 00) (S/P/Bld) [Vol rate/Area] Comment: Result Comment: If the patie nt is , multiply the result by 1.210. Performed By: #### GFR #### [facility] [address] [place], [place] [address] magnesium blood on 2020-06-13 Magnesium [Mass/Vol] 2.1 1.7-2.3 mg/dL Normal 0 [facility] (44326) Comment: Performed By: #### URIN2 ### # [facility] [address] [place], [place] [address] hemogram on 2020-05 Erythrocyte distribution 13.4 11.7-14.4 % Normal 06-13 [facility] width (RBC) [Ratio] System (90881) Comment: Performed By: #### URIN2 ### # [facility] [address] [place] [address] Hematocrit (Bld) [Volume 37.9 34.1-44.9 % Normal 06-13 [facility] fraction] System (00 000) Comment: Performed By: #### URIN2 ### # [facility] [address] [place] [address] Hemoglobin (Bld) 12.1 11.2-15.7 g/dL Normal 06-13-2020 [facility] [employer] [facility] [Mass/Vol] System (0 0000) Comment: Performed By: #### URIN2 ### # [facility] [address] [place] [address] MCH (RBC) [Entitic mass] 28.9 25.6-32.2 pg Normal 06-13 [facility] (00 000) Comment: Performed By: #### URIN2 ### # [facility] [address] [place] [address] MCHC (RBC) [Mass/Vol] 31.9 31.6-34.8 % Normal 06-13-20 20 [facility] [employer] [facility] (52881) Comment: Performed By: #### URIN2 ### # [facility] [address] [place] [address] MCV (RBC) [Entitic vol] 90.7 79.4-94.8 fl Normal 2019 [facility] (00 000) Comment: Performed By: #### URIN2 ### # [facility] [address] [place] [address] Platelet mean volume (Bld) 10.9 9.4-12.3 fl Normal [place] [employer] [facility] [Entitic vol] System (23059) Comment: Performed By: #### URIN2 ### # [facility] [address] [place], [place] [address] Platelets (Bld) [#/Vol] 236 182-369 thou/cmm Normal 2019 [facility] (00 000) Comment: Performed By: #### URIN2 ### # [facility] [address] [place], [place] [address] RBC (Bld) [#/Vol] 4.18 3.93-5.22 mil/cmm Normal 06-13-2020 [facility] (00 000) Comment: Performed By: #### URIN2 ### # [facility] [address] [place] [address] RDW SD 44.2 36.4-46.3 fl Normal 06-13-2020 [facility] (99984) Comment: Performed By: #### URIN2 ### # [facility] [address] [place] [address] WBC (Bld) [#/Vol] 7.45 3.98-10.04 thou/cmm Normal 06-13-2020 [facility] (00 000) Comment: Performed By: #### URIN2 ### # [facility] [address] [place] [address] comprehensive metabolic panel on 2020-06-13 Albumin [Mass/Vol] 4.1 3.9-4.9 g/dL Normal 06-13-2020 [facility] (16891) Comment: Performed By: #### URIN2 ### # [facility] [address] [place] [address] ALP [Catalytic activity/Vol] 98 34-123 U/L Normal 0 06-13-2020 [facility] (00 000) Comment: Performed By: #### URIN2 ### # [facility] [address] [place] [address] ALT [Catalytic activity/Vol] 73 7-38 U/L High 0 06-13-2020 [facility] (79857) Comment: Performed By: #### URIN2 ### # [facility] [address] [place] [address] Anion gap [Moles/Vol] 10 9-18 mmol/L Normal 06-13-20 20 [facility] (41581) Comment: Performed By: #### URIN2 ### # [facility] [address] [place], [place] [address] AST [Catalytic activity/Vol] 69 13-35 U/L High 0 06-13-2020 [facility] (16536) Comment: Performed By: #### URIN2 ### # [facility] [address] [place], [place] [address] Bilirubin [Mass/Vol] 0.6 0.2-1.3 mg/dL Normal 0 [facility] (67818) Comment: Performed By: #### URIN2 ### # [facility] [address] [place], [place] [address] Calcium [Mass/Vol] 9.1 8.5-10.2 mg/dL Normal 06-13-2020 [facility] (28775) Comment: Performed By: #### URIN2 ### # [facility] [address] [place], [place] [address] Chloride [Moles/Vol] 101 97-105 mmol/L Normal 0 [facility] (42617) Comment: Performed By: #### URIN2 ### # [facility] [address] [place], [place] [address] CO2 Blood 27 22-30 mmol/L Normal 06-13-2020 [facility] (66230) Comment: Performed By: #### URIN2 ### # [facility] [address] [place], [place] [address] Creatinine [Mass/Vol] 0.87 0.58-0.96 mg/dL Normal 06-13-20 20 [facility] (00 000) Comment: Performed By: #### URIN2 ### # [facility] [address] [place], [place] [address] Glucose [Mass/Vol] 94 74-99 mg/dL Normal 06-13-2020 [facility] (41860) Comment: Result Comment: [employer] [...] URIN2 ### # [facility] [address] [place], [place] [address] Potassium [Moles/Vol] 3.8 3.7-5.1 mmol/L Normal 06-13-20 20 [facility] (00 000) Comment: Performed By: #### URIN2 ### # [address] [address] Protein [Mass/Vol] 7.3 6.3-8.0 g/dL Normal 06-13-2020 [facility] (11867) Comment: Performed By: #### URIN2 ### # [facility] [address] [place], [place] [address] Sodium [Moles/Vol] 138 136-144 mmol/L Normal 06-13-2020 [facility] (13878) Comment: Performed By: #### URIN2 ### # [address] [address] Urea nitrogen [Mass/Vol] 7 7-21 mg/dL Normal 06-13 [facility] (13143) Comment: Performed By: #### URIN2 ### # [address] [address] case managem on CASE MANAGEM HNO ID: [id number] Normal 06-13-20 [facility] Author: Britni (Rn) [facility]CIUS [facility] Service: Care Management (50257) Author Type: Registered Nurse Type: Care Mgt [...] Name/Phone: Floor RN TRANSPORTATION ARRANGEMENTS: Transportation Arrangements: [employer] (through [employer]: [phone] Trip #: [id number] Needs Prior to Discharge: Ready for Discharge Chart reviewed. Discharge held yesterday due to uncontrolled pain. Spoke with patient. Plan is for discharge today. Awaiting juve hussein orders. Discharge disposition= Home with follow up care. SIGNATURE: Britni Grimaldo RN PATIENT NAME: Sally james DATE: June 13, 2020 TIME: 11:00 AM PAGER/CONTACT #: [phone] progress on 2020-05 PROGRESS HNO ID: [id number] Morrison 06-12-2020 [facility] Author: Nancy Abebe General Service: General Surgery Medical Author Type: Resident Center Type: Progress Notes (43134) Filed: 06/12/2020 7:57 AM Note Text: Attestation [...] questions or concerns Mon-Fri 6a-5p please page [phone]. After 5pm and on Weekends and Holidays, please page [phone]. SUBJECTIVE: C/o significant pain that prevents her [...] 0659 06/12/20 0700 - 06/13/20 0659 Shift 1816-0779 0687-6452 5091-5608 24 Hour Total 9421-0569 3038-3809 6985-3931 24 Hour Total INTAKE PO 100 100 PO 100 100 IV 1900 1900 OR Crystalloid intake (mL) 1000 1000 Volume (mL) (lactated ringers infusion) 900 900 Shift Total 8551 048 7223 OUTPUT Urine 769 065 4801 Void (ml) 600 600 OR Urine Output 500 500 Urine Not Saved. 1 x 3 x 4 x Blood 50 50 Estimated Blood loss 50 50 Shift Total 947 110 9692 Weight (kg) 89.6 89.6 89.6 89.6 89.6 [...] care on PLAN OF CARE HNO ID: [id number] Normal 06-12-20 [facility][1] Author: Page Burgess (Toxics Program Officer) [place] (06065) Service: Pharmacy Author Type: Pharmacist Type: Plan [...] from Discharge Medication Li st. Page Burgess, Toxics Program Officer June 12, 2020 10:36 AM Medication List [...] Your Medications These medications were sent to [facility] [address] [place] [address] Hours: Thursday-Thursday, 8am-6:30pm ? oxyCODONE IR 5 mg immediate release tablet phosphorous blood o n 2020-06-12 Phosphate [Mass/Vol] 3.4 2.7-4.8 mg/dL Normal 0 [facility] (78526) Comment: Performed By: #### CBCD1 ### # [place] [id number] magnesium blood on 2020-06-12 Magnesium [Mass/Vol] 1.5 1.7-2.3 mg/dL Low 0 [facility] ([address]03) Comment: Performed By: #### CBCD1 ### # [place] [id number] hemogram on 2020-05 Erythrocyte distribution 13.2 11.7-14.4 % Normal 06-12 [facility] width (RBC) [Ratio] System (15850) Comment: Performed By: #### CBCD1 ### # [place] [id number] Hematocrit (Bld) [Volume 32.9 34.1-44.9 % Low 06-12 [facility]] System (00 000) Comment: Performed By: #### CBCD1 ### # [facility] [address] [place], [place] [address] Hemoglobin (Bld) [Mass/Vol] 10.5 11.2-15.7 g/dL Low [facility] () Comment: Performed By: #### CBCD1 ### # [facility] [address] [place], [place] [address] MCH (RBC) [Entitic mass] 29.2 25.6-32.2 pg Normal 06-12 [facility] () Comment: Performed By: #### CBCD1 ### # [facility] [address] [place], [place] [address] MCHC (RBC) [Mass/Vol] 31.9 31.6-34.8 % Normal 06-12-20 20 [facility] (87959) Comment: Performed By: #### CBCD1 ### # [facility] [address] [place], [place] [address] MCV (RBC) [Entitic vol] 91.4 79.4-94.8 fl Normal 2019 [facility] (00 000) Comment: Performed By: #### CBCD1 ### # [facility] [address] [place], [place] [address] Platelet mean volume (Bld) 11.5 9.4-12.3 fl Normal [facility] [Entitic vol] System (89503) Comment: Performed By: #### CBCD1 ### # [facility] [address] [place], [place] [address] Platelets (Bld) [#/Vol] 182 182-369 thou/cmm Normal 2019 [facility] (00 000) Comment: Performed By: #### CBCD1 ### # [facility] [address] [place], [place] [address] RBC (Bld) [#/Vol] 3.60 3.93-5.22 mil/cmm Low 06-12-2020 [facility] (79567) Comment: Performed By: #### CBCD1 ### # [facility] [address] [place], [place] [address] RDW SD 44.5 36.4-46.3 fl Normal 06-12-2020 [facility] (30530) Comment: Performed By: #### CBCD1 ### # [facility] [address] [place] [id number] WBC (Bld) [#/Vol] 7.04 3.98-10.04 thou/cmm Normal 06-12-2020 [facility] (00 000) Comment: Performed By: #### CBCD1 ### # [facility] [address] [place] [address] case managem on CASE MANAGEM HNO ID: [id number] Normal 06-12-20 [facility] Author: Britni Naranjo) LUCIUS Grimaldo [facility] Service: Care Management (38951) Author Type: Registered Nurse Type: Care Mgt [...] 12, 2020 TIME: 9:18 AM PAGER/CONTACT #: [phone] basic metabolic panel on 2020-06-12 Anion gap [Moles/Vol] 8 9-18 mmol/L Low 06-12-20 20 [facility] (56414) Comment: Performed By: #### CBCD1 ### # [facility] [address] [place], [place] [address] Calcium [Mass/Vol] 8.0 8.5-10.2 mg/dL Low 06-12-2020 [facility] (43301) Comment: Performed By: #### CBCD1 ### # [facility] [address] [place], [place] [address] Chloride [Moles/Vol] 104 97-105 mmol/L Normal 0 [facility] (60307) Comment: Performed By: #### CBCD1 ### # [facility] [address] [place], [place] [address] CO2 Blood 26 22-30 mmol/L Normal 06-12-2020 [facility] (54931) Comment: Performed By: #### CBCD1 ### # [facility] [address] [place], [place] [address] Creatinine [Mass/Vol] 0.87 0.58-0.96 mg/dL Normal 06-12-20 [facility] (00 000) Comment: Performed By: #### CBCD1 ### # [facility] [address] [place], [place] [address] Glucose [Mass/Vol] 83 74-99 mg/dL Normal 06-12-2020 [facility] (67885) Comment: Result Comment: The [employer] [...] CBCD1 ### # [facility] [address] [place] [address] Potassium [Moles/Vol] 3.4 3.7-5.1 mmol/L Low 06-12-20 20 [facility] (73238) Comment: Performed By: #### CBCD1 ### # [facility] [address] [place] [address] Sodium [Moles/Vol] 138 136-144 mmol/L Normal 06-12-2020 [facility] (42957) Comment: Performed By: #### CBCD1 ### # [place] [address] Urea nitrogen [Mass/Vol] 6 7-21 mg/dL Low 06-12 [facility] (72033) Comment: Performed By: #### CBCD1 ### # [place] [address] type and screen on 2020-06-11 ABO group Nom (Bld) O Normal 06-11-2020 [facility] (22053) Comment: Performed By: #### CBCD1 ### # [place] [address] Comment See Below Normal 06-11-2020 [facility] (87604) Comment: Result Comment: Screen &/or Xmatch expires in 3 days at 12 midnight. Redraw patient at that time. Performed By: #### CBCD1 ### # [place] [address] RH Type Positive Normal 06-11-2020 [facility] (45003) Comment: Performed By: #### CBCD1 ### # [place] [address] surgical tissue exam on 2020-06-11 Surgical Tissue Exam Test performed at [facility] Normal 06-11-2020 [facility] [address] [place] [address] ([id number]) NAME: SALLY VARGAS REQUESTING: MALA ALMENDAREZ MD [...] are not see n on the specimen. Lead Based Paint Technician sections are submitted in formalin in 4 cassettes. LETICIA/chadd VILLASEÑOR M.D., PATHOLOGIST (Electronic signature on file) Signed out: 06/13/2020 16:48 PRINTED: 06/13/2020 Page 1 of 1 Comment: Performed By: #### URIN2 ### # [place] [address] progress on 2020-05 PROGRESS HNO ID: [id number] Normal 06-11-2020 [place] Author: Kimmie Beck [facility] General Service: General Surgery Medical Author Type: Resident Center Type: Progress Notes (57797) Filed: 06/11/2020 7:03 AM Note Text: Attestation [...] questions or concerns Mon-Fri 6a-5p please page [phone]. After 5pm and on Weekends and Holidays, please page [phone]. SUBJECTIVE: NAEON. Afebrile. Patient resting in bed [...] 0659 06/11/20 07 - 06/12/20 0659 Shift 7851-5526 9525-7857 7497-9484 24 Hour Total 8524-2334 6554-6671 3101-8696 24 Hour Total INTAKE PO 600 600 [...] questions or concerns Thu-Thu 6a-5p please page [phone]. After 5pm and on Weekends and Holidays, please page [phone] if in ICU or [phone] if on RNF. operative no on OPERATIVE NO HNO ID: [id number] Normal 06-11-20 [facility] Author: Mala [facility] Service: General Surgery ([id number]) Author Type: Physician Type: Operative Report Filed: 06/11/2020 1:39 PM Note Text: [facility] - Operative Report SALLY VARGAS : 1980 AGE: 39. SEX: F PATIENT TYPE: I HOSP SV: [facility] LOCATION: [facility] ATTENDING PHYSICIAN: MALA ALMENDAREZ CSN NUMBER: [id number] DATE OF SURGERY/PROCEDURE: 06/11/2020 INCISION/PROCEDURE START TIME: 10:51 AM INCISION CLOSE/PROCEDURE END TIME: 11:47 AM PREOPERATIVE DIAGNOSIS: Symptomatic liver cyst. POSTOPERATIVE DIAGNOSIS: Symptomatic liver cyst. SURGEON: Mala Almendarez MD ESTHETICIAN/OWNER: None. SURGERY/PROCEDURE: Laparoscopic partial right hepatic lobect [...] CLASS: 2, clean, contaminated. Mala Almendarez MD NSA:[id number] /[id number] nursing prog on NURSING PROG HNO ID: [id number] Normal 06-11-20 20 [facility] Author: Garo Jackson RN [facility] Service: ? ([id number]) Author Type: Registered Nurse Type: Nursing Progress Note Filed: 06/11/2020 6:25 PM Note Text: Nursing Progress Note Patient Name: Sally Vargas Patient Location: [place] [id number]- Patient refusing IV fluids, states we can restart them when she goes to bed. Informed surgery team. This note was completed by: Garo Jackson RN hemogram on 2020-05 Erythrocyte distribution 13.0 11.7-14.4 % Normal 06-11 [email or web address] width (RBC) [Ratio] System (95143) Comment: Performed By: #### CBCD1 ### # [facility] [address] [place], [place] [address] Hematocrit (Bld) [Volume 35.0 34.1-44.9 % Normal 06-11 [facility] fraction] System (00 000) Comment: Performed By: #### CBCD1 ### # [facility] [address] [place], [place] [address] Hemoglobin (Bld) 11.4 11.2-15.7 g/dL Normal 06-11-2020 [facility] [employer] [facility] [Mass/Vol] System (0 0000) Comment: Performed By: #### CBCD1 ### # [facility] [address] [place], [place] [address] MCH (RBC) [Entitic mass] 29.2 25.6-32.2 pg Normal 06-11 [facility] System (00 000) Comment: Performed By: #### CBCD1 ### # [facility] [address] [place], [place] [address] MCHC (RBC) [Mass/Vol] 32.6 31.6-34.8 % Normal 06-11-20 20 [facility] System (11924) Comment: Performed By: #### CBCD1 ### # [facility] [address] [place], [place] [address] MCV (RBC) [Entitic vol] 89.5 79.4-94.8 fl Normal 2019 [facility] System (00 000) Comment: Performed By: #### CBCD1 ### # [facility] [address] [place], [place] [address] Platelet mean volume (Bld) 11.1 9.4-12.3 fl Normal [facility] [Entitic vol] System (44337) Comment: Performed By: #### CBCD1 ### # [facility] [address] [place], [place] [address] Platelets (Bld) [#/Vol] 229 182-369 thou/cmm Normal 2019 [facility] (00 000) Comment: Performed By: #### CBCD1 ### # [facility] [address] [place], [place] [address] RBC (Bld) [#/Vol] 3.91 3.93-5.22 mil/cmm Low 06-11-2020 [facility] (23214) Comment: Performed By: #### CBCD1 ### # [facility] 1 [place] [id number] RDW SD 42.5 36.4-46.3 fl Normal 06-11-2020 [facility] System (89392) Comment: Performed By: #### CBCD1 ### # [facility] [address] [place], [place] [address] WBC (Bld) [#/Vol] 6.54 3.98-10.04 thou/cmm Normal 06-11-2020 [facility] (00 000) Comment: Performed By: #### CBCD1 ### # [place] [id number] case managem on 202 CASE MANAGEM HNO ID: [id number] Normal 06-11-20 20 [facility] Author: Britni (Rn) [facility] Service: Care Management ([id number]) Author Type: Registered Nurse Type: Care Mgt [...] 11, 2020 TIME: 9:10 AM PAGER/CONTACT #: [phone] anes preop on 06-11 ANES PREOP HNO ID: [id number] Normal 06-11-2020 Milka Dumont Author: [facility] Service: Anesthesiology ([id number]) Author Type: Physician Type: Anesthesia PreOp Filed: [...] Benign liver cyst 05/24/2010 CT scan at [facility] 11/2009 and 04/2010 showe 4 mm increase in size . No pain. No elevated LFTs on 03/11/2010. - Calculus of kidney 05/17/[address] Nicolas: Hospitalized age 20, and again later -- no procedures so far ([facility], [facility]) - Cancer (HCC) - Diverticulosis - Dysmenorrhea [...] Approx. 3 cigarettes daily-1 pack every w [place] Substance Use Topics - Alcohol use: Yes [...] INTRAVENOUS q 3 H PRN Nigel (Res) Letcher 1 mg at 06/11/20 0536 - [MAR Hold due to Transfer] NaCl 0.9% iv infusion 125 mL/hr INTRAVENOUS CONTINUOUS Nigel (Res) Letcher 125 mL/hr at 06/10/202247 1 25 mL/hr [...] June 11, 2020 TIME: 9:49 AM CSN: [id number] anes post on 06-11 ANES POST HNO ID: [id number] Normal 06-11-2020 [facility][1] Author: [facility] ([id number]) Service: Anesthesiology Author Type: Physician Type: Anesthesia [...] #: progress on 2020-05 PROGRESS HNO ID: [id number] Normal 06-10-2020 [facility][1] Author: Mer PickardRnJoao Bejarano RN [place] ([id number]) Service: Nursing Author Type: Registered Nurse Type: [...] resident Kimmie was notified. PROGRESS HNO ID: [id number] Normal 06-10-2020 [facility][1] Author: Kimmie Beck [facility] ([id number]) Service: General Surgery Author Type: Resident Type: [...] questions or concerns Mon-Thu 6a-5p please page [phone]. After 5pm and on Weekends and Holidays, please page [phone]. SUBJECTIVE: NAEON. Afebrile. Patient resting in bed [...] 0659 06/10/20 0700 - 06/11/20 0659 Shift 4913-2644 1518-3056 8187-2874 24 Hour Total 0394-0093 1266-4248 3852-1974 24 Hour Total INTAKE PO 056 091 7069 PO 066 817 6002 Shift Total 584 531 9270 OUTPUT Urine Urine Not Saved. 2 x [...] 2174 if on RNF. 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 This test was developed and its performance characteristics determined by 's [facility] [place]. This test has bee n authorized by FDA under an Emergency Use Authorization (EUA). This test has been validated in accordance with the FDA's Guidance Document Policy for Diagnostics Test ing in Laboratories Certified to Perform High Complexity Testing under CLI A prior to Emergency use Authorization for Coronavirus Disease 2019 dur ing the Public [facility] Emergency issued on November 12, 2019. Performing Laboratory: [facility] [address] [place] [address] Performed By: #### CBCD1 ### # [facility] [address] [place], [place] [address] basic metabolic panel on 2020-06-10 Anion gap [Moles/Vol] 10 9-18 mmol/L Normal 06-10-20 [facility] (12087) Comment: Performed By: #### CBCD1 ### # [address] [address] Calcium [Mass/Vol] 9.2 8.5-10.2 mg/dL Normal 06-10-2020 [facility] (19784) Comment: Performed By: #### CBCD1 ### # [facility] [address] [place], [place] [address] Chloride [Moles/Vol] 102 97-105 mmol/L Normal 0 [facility] [employer] [facility] (31068) Comment: Performed By: #### CBCD1 ### # [facility] [address] [place], [place] [address] CO2 Blood 27 22-30 mmol/L Normal 06-10-2020 [facility] (35360) Comment: Performed By: #### CBCD1 ### # [facility] [address] [place], [place] [address] Creatinine [Mass/Vol] 0.90 0.58-0.96 mg/dL Normal 06-10-20 20 [facility] (00 000) Comment: Performed By: #### CBCD1 ### # [facility] [address] [place], [place] [address] Glucose [Mass/Vol] 105 74-99 mg/dL High 06-10-2020 [facility] (35671) Comment: Result Comment: The [employer] [...] 1). Performed By: #### CBCD1 ### # [place] [address] Potassium [Moles/Vol] 3.7 3.7-5.1 mmol/L Normal 06-10-20 [facility] (00 000) Comment: Performed By: #### CBCD1 ### # [place] [address] Sodium [Moles/Vol] 139 136-144 mmol/L Normal 06-10-2020 [facility] (99313) Comment: Performed By: #### CBCD1 ### # [place] [address] Urea nitrogen [Mass/Vol] 8 7-21 mg/dL Normal 06-10 [facility] (63830) Comment: Performed By: #### CBCD1 ### # [place] [address] allied health on 03-06-27 ALLIED HNO ID: [id number] Normal 06-10-2020 [facility] Author: Chaplain Suarez (Chaplain) General Service: Spiritual Care Medical Author Type: Senior Storage Administrator Center Type: Allied Health ([id number]) Filed: 06/10/2020 7:39 PM Note Text: SPIRITUALCARE Spiritual Care Visit- Brief Note Name: Sally Vargas Date: June 10, 2020 Notes: Pre-surgery Patient Nothing needed tonight. Senior Storage Administrator Signature: Chaplain Erick To contact the [facility] Department: Please call [phone] or Page the [place] [phone] Thank you for the opportunity to be of service. This is an electronically created document. IF PRINTED, PLEASE DO NOT REMOVE FROM THE CHART OR MODIFY WI INTED COPY. progress on 2020-05 PROGRESS HNO ID: [id number] Normal 06-09-2020 Milka Author: Kimmie Jennings General Service: General Surgery Medical Author Type: Resident Center Type: Progress Notes ([id number]) Filed: 06/09/2020 7:14 AM Note Text: Attestation [...] questions or concerns Thu-Thu 6a-5p please page [phone]. After 5pm and on Weekends and Holidays, please page [phone]. SUBJECTIVE: NAEON. Afebrile. Patient resting in bed [...] 0659 06/09/20 07 - 06/10/20 0659 Shift 7514-0916 5062-8444 4835-3596 24 Hour Total 3283-1886 4224-7322 5451-9848 24 Hour Total INTAKE Shift Total OUTPUT [...] Erythrocyte distribution 13.2 11.7-14.4 % Normal 06-09 [facility] width (RBC) [Ratio] System (68545) Comment: Performed By: #### GFR #### [address] [address] Hematocrit (Bld) [Volume 33.7 34.1-44.9 % Low 06-09 [facility]] System (00 000) Comment: Performed By: #### GFR #### [address] [address] Hemoglobin (Bld) [Mass/Vol] 10.6 11.2-15.7 g/dL Low [facility] (00 000) Comment: Performed By: #### GFR #### [address] [address] MCH (RBC) [Entitic mass] 28.8 25.6-32.2 pg Normal 06-09 [facility] (00 000) Comment: Performed By: #### GFR #### [address] [address] MCHC (RBC) [Mass/Vol] 31.5 31.6-34.8 % Low 06-09-20 20 [facility] (00684) Comment: Performed By: #### GFR #### [address] [address] MCV (RBC) [Entitic vol] 91.6 79.4-94.8 fl Normal 2019 [facility] (00 000) Comment: Performed By: #### GFR #### [address] [address] Platelet mean volume (Bld) 11.6 9.4-12.3 fl Normal [facility] [Entitic vol] System (62359) Comment: Performed By: #### GFR #### [facility] [address] [place], [place] [address] Platelets (Bld) [#/Vol] 199 182-369 thou/cmm Normal 2019 [facility] (00 000) Comment: Performed By: #### GFR #### [facility] 1 [place] [id number] RBC (Bld) [#/Vol] 3.68 3.93-5.22 mil/cmm Low 06-09-2020 [facility] (03248) Comment: Performed By: #### GFR #### [place] [address] RDW SD 43.9 36.4-46.3 fl Normal 06-09-2020 [facility] (07851) Comment: Performed By: #### GFR #### [place] [id number] WBC (Bld) [#/Vol] 6.47 3.98-10.04 thou/cmm Normal 06-09-2020 [facility] (00 000) Comment: Performed By: #### GFR #### [address] [address] basic metabolic panel on 2020-06-09 Anion gap [Moles/Vol] 11 9-18 mmol/L Normal 06-09-20 20 [facility] (18027) Comment: Performed By: #### GFR #### [address] [address] Calcium [Mass/Vol] 8.8 8.5-10.2 mg/dL Normal 06-09-2020 [facility] (52001) Comment: Performed By: #### GFR #### [address] [address] Chloride [Moles/Vol] 106 97-105 mmol/L High 0 [facility] (64289) Comment: Performed By: #### GFR #### [address] [place], [place] [address] CO2 Blood 24 22-30 mmol/L Normal 06-09-2020 [facility] (44689) Comment: Performed By: #### GFR #### [facility] [address] [place], [place] [address] Creatinine [Mass/Vol] 0.82 0.58-0.96 mg/dL Normal 06-09-20 [facility] (00 000) Comment: Performed By: #### GFR #### [facility] [address] [place], [place] [address] Glucose [Mass/Vol] 84 74-99 mg/dL Normal 06-09-2020 [facility] (79018) Comment: Result Comment: The [employer] [...] #### GFR #### [facility] [address] [place], [place] [address] Potassium [Moles/Vol] 3.8 3.7-5.1 mmol/L Normal 06-09-20 20 [facility] (00 000) Comment: Performed By: #### GFR #### [facility] [address] [place], [place] [address] Sodium [Moles/Vol] 141 136-144 mmol/L Normal 06-09-2020 [facility] (55458) Comment: Performed By: #### GFR #### [facility] [address] [place], [place] [address] Urea nitrogen [Mass/Vol] 9 7-21 mg/dL Normal 06-09 [facility] (03636) Comment: Performed By: #### GFR #### [facility] [address] [place], [place] [address] protime on INR Coag (PPP) [Relative 1.07 0.90-1.30 {INR} Normal 06-08 [facility] time] System (00 000) Comment: Result Comment: [...] aortic heart valve replacement. Note: Patients with textile machine maintenance mechanic al aortic valve replacement and additional risk factors for thromboembolic events (atrial fibrillation, previous throm boembolism, LV dysfunction, hypercoagulable conditions) or an older generation mechanical AVR (i.e., ball in-Cage) or any mechanical MVR should have a INR therapeutic range of 2 .5 to 3.5 target INR of 3). Francktt GH, et al. Chest 2012 ; 141:7S-47S Calderon RA et al. [facility] 20 17; 70: 252-289 Performed By: #### GFR #### [facility] [address] [place], [place] [address] PT Coag (PPP) [Time] 11.1 9.7-13.0 sec Normal 0 [facility] (82623) Comment: Performed By: #### GFR #### [facility] [address] [place], [place] [address] phosphorous blood o n 2020-06-08 Phosphate [Mass/Vol] 3.3 2.7-4.8 mg/dL Normal 0 [place] (82939) Comment: Performed By: #### GFR #### [facility] [address] [place], [place] [address] nursing prog on NURSING PROG HNO ID: [id number] Normal 06-08-20 20 [facility] Author: Garo (Rn) [facility]US [facility] Service: ? ([id number]) Author Type: Registered Nurse Type: Nursing Progress Note Filed: 06/08/2020 10:56 AM Note Text: Nursing Progress Note Patient Name: Sally Vargas Patient Location: [place] [id number] Spoke with Doctor Dick regarding IV contrast allergy and th e need for steroid prep. This note was completed by: Garo Jackson RN mri panc/james wo/w ivcon on 2020-06-08 MRI PANC/JAMES WO/W Final Report Normal 0 [place] [facility] IVCON DATE OF EXAM: Jun 08 2020 6:[address] [place] [address]30 - MRI PANC/JAMES WO/W IVCON / (72304) PROCEDURE REASON: Liver lesion, >1cm, US indeterminate, [...] x 8.0 cm . 2. Normal MRCP. Licensed Club Manager: HERMINIO Transcribe Date/Time: Jun 08 2020 7:48P Dictated by : ALICE ALCARAZ MD This examination was interpreted and the report reviewed and electronically signed by: ALICE ALCARAZ MD on Jun 08 2020 8:42PM EST mri 3d post processing on 2020-06-08 MRI 3D POST Final Report Normal 06-08-2020 [facility] PROCESSING DATE OF EXAM: Jun 08 2020 6:31PM [facility] System [facility] 0280 - MRI 3D POST PROCESSING / (22486) PROCEDURE REASON: Abd pain, chronic, intermittent Physician [...] x 8.0 cm . 2. Normal MRCP. Licensed Club Manager: HERMINIO Transcribe Date/Time: Jun 08 2020 7:48P Dictated by : ALICE ALCARAZ MD This examination was interpreted and the report reviewed and electronically signed by: ALICE ALCARAZ MD on Jun 08 2020 8:42PM EST magnesium blood on 2020-06-08 Magnesium [Mass/Vol] 2.0 1.7-2.3 mg/dL Normal 0 [facility] (20189) Comment: Performed By: #### LIP #### [facility] [address] [place], [place] [address] lipase blood on Lipase Blood 31 16-61 U/L Normal 06-08-2020 [facility] (99816) Comment: Performed By: #### GFR #### [facility] [address] [place], [place] [address] history physical on 2020-06-08 HISTORY HNO ID: [id number] Normal 06-08-2020 [place] PH[facility]ICAL Author: Chris Kurtz General Service: General Surgery Medical Author Type: Resident Center Type: [facility] ([id number]) Filed: 06/08/2020 7:24 AM Note Text: Attestation signed by Mala Almendarez at 06/08/2020 7:09 PM Attending Note I personally saw and examined the patient. I reviewed the resident's note. I agree with the resident's assessment and plan with the [facility] revisions and/or additions: Admit for symptomatic hepatic cyst. Plan for cyst fenestrati on on Thursday. Signature: Mala Almendarez MD Date: 06/08/2020 Time: 7:09 PM HISTORY AND PHYSICAL EXAMINATION SERVICE DATE: 06/08/2020 SERVICE TIME: 7:12 AM Subjective CHIEF COMPLAINT: Abdominal Pain HPI: 39 year old female presents as a direct admission to [facility] with abdominal pain and a known history of hepatic cysts with rec urrent pancreatitis. Her last admission was for pancreatitis, in [facility] she had imaging showing increasing [...] Benign liver cyst 05/24/2010 CT scan at [facility] 11/2009 and 04/2010 showe 4 mm increase in size . No pain. No elevated LFTs on 03/11/2010. - Calculus of kidney 05/17/[address] Nicolas: Hospitalized age 20, and again later -- no procedures so far ([facility], [facility]) - Cancer (HCC) - Diverticulosis - Dysmenorrhea [...] Approx. 3 cigarettes daily-1 pack every w [place] Substance Use Topics - Alcohol use: Yes [...] please page [phone] if in ICU or 2171 if on RNF. hepatic function panel on 2020-06-08 Albumin [Mass/Vol] 4.7 3.9-4.9 g/dL Normal 06-08-2020 [facility] (50710) Comment: Performed By: #### GFR #### [place] [address] ALP [Catalytic activity/Vol] 94 34-123 U/L Normal 0 06-08-2020 [facility] () Comment: Performed By: #### GFR #### [facility] [address] [place], [place] [address] ALT [Catalytic activity/Vol] 17 7-38 U/L Normal 0 06-08-2020 [facility] () Comment: Performed By: #### GFR #### [facility] [address] [place], [place] [address] AST [Catalytic activity/Vol] see below 13-35 Normal 0 06-08-2020 [facility] () Comment: Result Comment: Unable to as say. Specimen Hemolyzed Performed By: #### GFR #### [facility] [address] [place], [place] [address] Bilirubin [Mass/Vol] see below 0.0-0.2 Normal 0 [facility] () Comment: Result Comment: Unable to as say. Specimen Hemolyzed Performed By: #### GFR #### [address] [address] Bilirubin [Mass/Vol] 0.3 0.2-1.3 mg/dL Normal 0 [facility] (23922) Comment: Performed By: #### GFR #### [address] [address] Protein [Mass/Vol] 7.8 6.3-8.0 g/dL Normal 06-08-2020 [facility] (71198) Comment: Performed By: #### GFR #### [facility] [address] [place], [place] [address] hemogram on 2020-05 Erythrocyte distribution 13.3 11.7-14.4 % Normal 06-08 [facility] width (RBC) [Ratio] System (00852) Comment: Performed By: #### LIP #### [address] [address] Hematocrit (Bld) [Volume 38.1 34.1-44.9 % Normal 06-08 [place] [facility] fraction] System (00 000) Comment: Performed By: #### LIP #### [facility] 1 [place] [id number] Hemoglobin (Bld) 11.8 11.2-15.7 g/dL Normal 06-08-2020 [facility] [Mass/Vol] System (0 0000) Comment: Performed By: #### LIP #### [facility] 1 [place] [id number] MCH (RBC) [Entitic mass] 28.4 25.6-32.2 pg Normal 06-08 [facility] (00 000) Comment: Performed By: #### LIP #### [facility] 1 [place] [address] MCHC (RBC) [Mass/Vol] 31.0 31.6-34.8 % Low 06-08-20 20 [facility] (48901) Comment: Performed By: #### LIP #### [facility] [address] [place] [id number] MCV (RBC) [Entitic vol] 91.8 79.4-94.8 fl Normal 2019 [facility] (00 000) Comment: Performed By: #### LIP #### [facility] [address] [place] [address] Platelet mean volume (Bld) 11.6 9.4-12.3 fl Normal [facility] [Entitic vol] System (92937) Comment: Performed By: #### LIP #### [facility] [address] [place], [place] [address] Platelets (Bld) [#/Vol] 230 182-369 thou/cmm Normal 2019 [facility] (00 000) Comment: Performed By: #### LIP #### [facility] 1 [place] [id number] RBC (Bld) [#/Vol] 4.15 3.93-5.22 mil/cmm Normal 06-08-2020 [facility] (00 000) Comment: Performed By: #### LIP #### [facility] [address] [place] [id number] RDW SD 44.9 36.4-46.3 fl Normal 06-08-2020 [facility] (10877) Comment: Performed By: #### LIP #### [facility] [address] [place], [place] [address] WBC (Bld) [#/Vol] 7.30 3.98-10.04 thou/cmm Normal 06-08-2020 [facility] (00 000) Comment: Performed By: #### LIP #### [facility] [address] [place], [place] [address] case mgt init asses on 2020-06-08 CASE MGT INIT HNO ID: [id number] Normal 020 [facility] Author: Britni (Rn) [facility] Service: Care Management ([id number]) Author Type: Registered Nurse Type: Care Mgt Initial Assessment Filed: 06/08/2020 11:00 AM Note Text: CARE MANAGEMENT: ASSESSMENT AND DISCHARGE PLAN SERVICE DATE: June 08, 2020 SERVICE TIME: 10:50 AM PRIMARY CARE PHYSICIAN: Marcelino Mejia MD (Confirmed with patient) ADMISSION STATUS: Inpatient Needs Prior to Discharge: Pharmacy Bedside Delivery MEDICAL: [facility] MEDICAID 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 Yes Is Patient Psychosocially Complex?: No ASSESSMENT AND PLAN: Medical Needs: Medical Needs: Two or more chronic diseases Psychosocial Needs: Psychosocial Needs: None FREEDOM OF CHOICE EXPLAINED: [place] of Choice Given: No Reason Not Given: [...] 08, 2020 TIME: 10:50 AM PAGER/CONTACT #: [phone] basic metabolic panel on 2020-06-08 Anion gap [Moles/Vol] 11 9-18 mmol/L Normal 06-08-20 [facility] (67895) Comment: Performed By: #### LIP #### [facility] [address] [place], [place] [address] Calcium [Mass/Vol] 9.6 8.5-10.2 mg/dL Normal 06-08-2020 [facility] (78176) Comment: Performed By: #### LIP #### [facility] [address] [place], [place] [address] Chloride [Moles/Vol] 104 97-105 mmol/L Normal 0 [facility] (39530) Comment: Performed By: #### LIP #### [facility] [address] [place], [place] [address] CO2 Blood 25 22-30 mmol/L Normal 06-08-2020 [facility] (53693) Comment: Performed By: #### LIP #### [facility] [address] [place], [place] [address] Creatinine [Mass/Vol] 0.80 0.58-0.96 mg/dL Normal 06-08-20 [facility] (00 000) Comment: Performed By: #### LIP #### [facility] [address] [place], [place] [address] Glucose [Mass/Vol] 91 74-99 mg/dL Normal 06-08-2020 [facility] (75729) Comment: Result Comment: The [employer] [...] #### LIP #### [facility] [address] [place], [place] [address] Potassium [Moles/Vol] 3.7 3.7-5.1 mmol/L Normal 06-08-20 [facility] (00 000) Comment: Performed By: #### LIP #### [facility] [address] [place], [place] [address] Sodium [Moles/Vol] 140 136-144 mmol/L Normal 06-08-2020 [facility] (37552) Comment: Performed By: #### LIP #### [facility] [address] [place], [place] [address] Urea nitrogen [Mass/Vol] 13 7-21 mg/dL Normal 06-08 [facility] (11534) Comment: Performed By: #### LIP #### [facility] [address] [place], [place] [address] allied health on 03-06-25 ALLIED HEALTH HNO ID: [id number] Normal 020 [facility][1] Author: Deepa Mcintosh) [facility] ([id number]) Service: Radiology Author Type: Pocketbook Maker Type: Allied Health Filed: 06/08/2020 7:02 PM Note Text: Spoke to Garo (RN), in regards to her itching and scratching after the MRI was completed. Garo informed me that she had been itching an d scratching all day. Garo came down and gave the patient medication for the itching and took her back to the room. Kelley Noriega ALLIED HEALTH HNO ID: [id number] Normal 020 [facility][1] Author: Deepa Mcintosh) [facility] ([id number]) Service: Radiology Author Type: Pocketbook Maker Type: Allied Health Filed: 06/08/2020 5:56 PM [...] to [facility] documentation RADIOLOGY DEPARTMENT: MR; Exam(s) Completed: Body: Pancreas/ Biliary SIGNATURE: RT Masoud PATIENT NAME: Sally Vargas DATE: June 08, 2020 TIME: 5:53 PM ALLIED HEALTH HNO ID: [id number] Normal 020 [facility][1] Author: Deepa (Rt) Vianey Benavides [facility] ([id number]) Service: Radiology Author Type: Pocketbook Maker Type: Allied Health Filed: 06/08/2020 4:21 PM Note Text: Called RN to get MRI order changed to w/wo per radiology pro tocol. Patient is not listed as allergy to gadolinium and creat is WNL. Mira l schedule STAT MRI as soon as order is changed activated ptt on 03-06-25 aPTT Coag (Bld) [Time] 30.5 23.0-32.4 sec Normal 020 [facility] (00 000) Comment: Result Comment: [...] [facility]. Performed By: #### GFR #### [place] [address] hosp on 2020-06-07 HOSP Patient:Sally Vargas Normal 05-16 [place] MRN: General Height:5' 1(1.549 m) Medical Weight:197 lb 9.6 oz (89.631 kg) Center Outpatient Medications as of 06/11/20: (52953) prazosin (MINIPRESS) 1 mg cap hyoscyamine (LEVSIN) [...] the resident's assessment [facility] revisions and/or additions: Admit for symptomatic hepatic cyst. Plan for cyst fenestrati on on Thursday. Signature: Mala Almendarez MD Date: 06/08/2020 Time: 7:09 PM HISTORY AND PHYSICAL EXAMINATION SERVICE DATE: 06/08/2020 SERVICE TIME: 7:12 AM Subjective CHIEF COMPLAINT: Abdominal Pain HPI: 39 year old female presents as a direct adm ission to [facility] with abdominal pain and a known [...] Benign liver cyst 05/24/2010 CT scan at [facility] 11/2009 and 04/2010 showe 4 mm increase in size . No pain. No elevated LFTs on 03/11/2010. - Calculus of kidney 05/17/[address] Nicolas: Hospitalized age 20, a nd again later -- no procedures so far ([facility], [facility], 1995 [facility]) - Cancer (HCC) - Diverticulosis - Dysmenorrhea [...] Approx. 3 cigarettes daily-1 pack every w mohegan Substance Use Topics - Alcohol use: Yes [...] questions or concerns Thu-Thu 6a-5p please page [phone]. After 5pm and on Weekends an d Holidays, please page [phone] if in ICU or [phone] if on RNF. 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 Stated Goals: To return home to life as it was Health Insurance: [employer] Issues Impacting Discharge Plan: Uncontrolled Uncontrolled: History [...] completed Advance Directive: Current Advance Directive: None Timber Inspector Attempted to Assist with AD Completion: [...] Receive Any Community Services or [facility] Care?: None Equipment Prior to Admission: [...] Completely I feel financially burdened by my eog-uz-elilmc expens es for my prescription medication:: 0 - Disagree Completely Risk Score: 0 Patient is categorized as: Low risk < 2 Are you interested in bedside delivery of your medications? Yes Is Patient Psychosocially Complex?: No ASSESSMENT AND PLAN: Medical Needs: Medical Needs: Two or more chronic diseases Psychosocial Needs: Psychosocial Needs: None FREEDOM OF CHOICE EXPLAINED: [place] of Choice Given: No Reason Not Given: [...] 08, 2020 TIME: 10:50 AM PAGER/CONTACT #: [phone] Jasmine Chavez, RN 06/08/2020 10:56 AM Signed Nursing Progress Note Patient Name: Sally Vargas Patient Location: [place] [id number]- Spoke with Doctor Dick regarding IV con trast allergy and the need for steroid prep. This note was completed by: LUCIUS Chavez RT, [employer] 06/08/2020 4:21 PM Signed Called RN to [...] questions or concerns Mon-Fri 6a-5p please page [phone]. After 5pm and on Weekends and Holidays, please page [phone]. SUBJECTIVE: NAEON. Afebrile. Patient resting in bed [...] - 06/09/20 0606/09/20699 - 06/10/20 0659 Shift 9184-4772 6721-5323 23 00-0659 24 Hour Total 6455-7773 7684-4930 4546-8763 24 Hour Total INTAKE Shift Total OUTPUT [...] questions or concerns Thu-Thu 6a-5p please page [phone]. After 5pm and on Weekends an d Holidays, please page [phone] if in ICU or [phone] if on RNF. Mer Bejarano, RN, RN [...] questions or concerns Mon-Fri 6a-5p please page [phone]. After 5pm and on Weekends and Holidays, please page [phone]. SUBJECTIVE: NAEON. Afebrile. Patient resting in bed [...] 0659 06/10/20 0700 - 06/11/20 0659 Shift 6510-3370 5754-7419 23 00-0659 24 Hour Total 2557-4886 1134-0727 9400-1650 24 Hour Total INTAKE PO 107 355 9930 PO 364 293 9877 Shift Total 796 163 9270 OUTPUT Urine Urine Not Saved. 2 x [...] questions or concerns Thu-Thu 6a-5p please page [phone]. After 5pm and on Weekends an d [...] 2020 Notes: Pre-surgery Patient Nothing needed tonight. Senior Storage Administrator Signature: Chaplain Erick To contact the Spiritual Care Department: Please call [phone] or Page the On-Call Senior Storage Administrator at [facility] [place] [phone] Thank you for the opportunity to be of service. This is an electronically created document. IF PRINTED, PLEASE DO NOT REMOVE FROM THE CHART OR MODIFY WI INTED COPY. Kimmie Jennings DO 06/11/2020 7:03 AM Cosign Needed Elective General Surgery Progress Note SERVICE DATE: 06/11/2020 Elective General Surgery Service Pager: For questions or concerns Mon-Fri 6a-5p please page [phone]. After 5pm and on Weekends and Holidays, please page [phone]. SUBJECTIVE: NAEON. Afebrile. Patient resting in bed [...] 0659 06/11/20 07 - 06/12/20 0659 Shift 8182-9217 6477-5090 23 00-0659 24 Hour Total 1590-7469 9451-7288 6104-6356 24 Hour Total INTAKE PO 600 600 [...] questions or concerns Thu-Thu 6a-5p please page [phone]. After 5pm and on Weekends an d [...] 11, 2020 TIME: 9:10 AM PAGER/CONTACT #: [phone] Ruben Thompson MD 06/11/2020 9:51 AM Signed [...] Benign liver cyst 05/24/2010 CT scan at [facility] 11/2009 and 04/2010 showe 4 mm increase in size . No pain. No elevated LFTs on 03/11/2010. - Calculus of kidney 05/17/[address] Nicolas: Hospitalized age 20, a nd again later -- no procedures so far ([facility], [facility], 1995 [facility]) - Cancer (HCC) - Diverticulosis - Dysmenorrhea [...] Approx. 3 cigarettes daily-1 pack every w mohegan Substance Use Topics - Alcohol use: Yes [...] INTRAVENOUS q 3 H PRN Nigel (Res) Letcher 1 mg at 0536 - [MAR Hold [...] June 11, 2020 TIME: 9:49 AM CSN: [id number] Progress Notes ([facility]): Johnny Winn MD 06/06/2020 10:30 [...] on 2020-06-06 CNPN Telephone (GSTNOR) Normal 06-06-2020 [place] [facility] SALLY VARGAS ([id number]) 1980 F [place] Date Time Provider Department ([id number]) 06/06/20 JOHNNY WINN During your visit today, [...] c ysts. All questions answered. MD [facility] 06/06/2020 10:53 AM Signed Patient is [...] Order(s):CONSULT TO ALLERGY/IMMUNOLOGY [ 9001] Order #: [id number]: 1 FUTURE Prescriptions as of 06/06/2020 Sig: [...] 06/06/20 progress on 2020-05 PROGRESS HNO ID: [id number] Normal 06-05-2020 [facility][1] Author: Mala ssoa ([id number]) Service: ? Author Type: Physician Type: Progress [...] MD progress on 2020-05 PROGRESS HNO ID: [id number] Normal 06-01-2020 Author: Branden (Network Navigator) [facility] [place] ([id number]) Service: ? Author Type: Compression Molding Machine Tender Type: Progress Notes Filed: 06/01/2020 12:42 PM Note Text: Patient has follow up with next Thursday for Pancreatitis. progress on 2020-05 PROGRESS HNO ID: [id number] Normal 05-31-2020 Author: Marcelino Mejia [place] ([id number]) Service: ? 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 She has been seeing them for recurring pancreatit is and stomach issues. I have nothing further I can add to her care at this time. PROGRESS HNO ID: [id number] Normal 05-31-2020 Author: Branden (Network Navigator) [facility] [place] ([id number]) Service: ? Author Type: Compression Molding Machine Tender Type: Progress Notes Filed: 05/31/2020 8:49 AM [...] appointment. Thank you SUMMARY: Pt discharged from [facility] on May 29, 2020 Admitted for: Intractable nausea and vomitting Contact made with patient: Yes Hi my name is Branden Greg, NETWORK NAVIGATOR and I am calling from the on behalf of your PCP, Marcelino Mejia [...] like to speak with a social work body service team member to help give you support [...] I will send your request to a production scheduler who will contact and assist you [...] out to patient to assist with scheduling RIPRAP WORKER: Rajinder Meyers status is: Active account Thank [...] on 2020-05-31 CNPN Telephone (GSTNOR) Normal 05-31-2020 [place] [facility] SALLY VARGAS ([id number]) 1980 [facility] [place] Date Time Provider Department ([id number]) 05/31/20 JOHNNY WINN GSTNOR During your visit today, we recorded the following informati on about you: Pierce Sunil Hutchinson 05/31/2020 2:37 PM Signed Patient call, said she was doing ok yesterday, today having epigastric abdominal pain, nausea and vomiting. Has appt [facility] Dr. Almendarez next week. [...] 05/31/20 progress on 2020-05 PROGRESS HNO ID: [id number] Normal 05-30-2020 Author: Allie (Network Navigator) Skyler Lara ([id number]) Service: ? Author Type: Compression Molding Machine Tender Type: Progress Notes Filed: 05/31/2020 8:49 AM Note Text: TRANSITIONAL CARE MANAGEMENT (TCM) COMMUNITY MONITORING PROG BRITTANI Provider Action/FYI: Message left for patient. Attempting to schedule TCM appoint ment SUMMARY: Pt discharged from [place] on 05/29. Admitted for: intractable nausea and vomiting Contact made with patient: No - scheduled next outreach for next business day in the Track Pt Outreach section Outreach ended cnptoutreach on CNPTOUTREACH Patient Outreach (FAMPWS) Normal 0 05-30-2020 [place] SALLY Martinez ([id number]) 1980 [facility] [place] Date Time Provider Department ([id number]) 05/30/20 ALLIE HOLLAND [facility]NETWORK NAVIGATOR)[facility] During your visit today, we recorded the following informati on about you: Allie Holland NETWORK NAVIGATOR 05/31/2020 8:49 AM Signed TRANSITIONAL CARE MANAGEMENT (TCM) COMMUNITY MONITORING PROG BRITTANI Provider Action/FYI: Message left for patient. Attempting to schedule TCM appoint ment SUMMARY: Pt discharged from [place] on 05/29. Admitted for: intractable nausea and [...] appointment. Thank you SUMMARY: Pt discharged from [facility] on May 29, 2020 Admitted for: Intractable nausea and vomitting Contact made with patient: Yes Hi my name is Branden [place], NETWORK NAVIGATOR and I am calling from the on behalf of your PCP, Marcelino Mejia [...] like to speak with a social work body service team member to help give you support [...] I will send your request to a production scheduler who will contact and assist you [...] out to patient to assist with scheduling RIPRAP WORKER: Patient Mira status is: Active account Thank [...] 05/31/2020 10:49 AM Signed 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 and would work on getting her back [...] and vomiting [R11.2] 05/25/2020 Encounter Status:Closed by [facility] NETWORK NAVIGATORALBAN on 05/31/20 progress on 2020-05 PROGRESS HNO ID: [id number] [place] 05-29-2020 [place] Author: Vickie Srivastava General Service: Hospital Medicine Medical Author Type: Resident Center Type: Progress Notes ([id number]) Filed: 05/29/2020 2:51 PM Note Text: Attestation [...] PM: You may reach the House Medicine market research intern currently assigned to this patient by jack mahoney their pager number on the treatment team (they will be assigned as the i ntern or resident). It is the last four digits in the phone number be ginning with ([phone]). We encourage the use of oNoise Secure Chat. SUBJECTIVE HPI: 39 year old F PMHx idiopathic pancreatitis, hepatic cys ts presenting to the ED with intractable nausea and vomiting as well as RU Q abdominal pain for the past 3 days. States that she called her GI doct or Dr. Winn and he told her to come into the ED. She has [facility] ed for 05/[address] Winn. [...] care on PLAN OF CARE HNO ID: [id number] Normal 05-29-20 [facility][1] Author: Irma Estrada (Pharmacist) Center ([id number]) Service: Pharmacy Author Type: Pharmacist Type: Plan [...] PHARMACIST May 29, 2020 2:50 PM Pager: [phone] 05/29/2020 2:50 PM Medication List START taking [...] Medications These medications were sent to e- [facility]/pharmacy #[id number] [place] [address] - [address] - [phone] [address] [facility] [address] ? oxyCODONE IR 5 mg immediate release tablet PLAN OF CARE HNO ID: [id number] Normal 05-29-20 [facility][1] Author: Irma Estrada (Pharmacist) Center ([id number]) Service: Pharmacy Author Type: Pharmacist Type: Plan of Care Filed: 05/29/2020 2:49 PM Note Text: MEDICATION RECONCILIATION Patient Name:Marlen Vargas : 1980 Reconciliation: Yes All CASING BLOWER medications addressed by LIP Additional comments: aggree with student note Allergies: ALLERGIES Allergen Reactions - Penicillins Rash - Cephalexin Itching - Chlorhexidine Rash Skin rash - Toradol [Ketorolac] Rash - Tramadol Rash - Asa [Salicylates] Other: See Comments ulcers - Contrast Dye [Iodin* Shortness of Breath - Ibuprofen GI Upset - Prednisone Other: See Comments makes agitated and mean Preferred Pharmacy: [facility] Current CASING BLOWER Medications: Prior to Admission medications as of 05/29/20927 Medication Sig Last Dose Taking prazosin (MINIPRESS) 1 mg cap Take 1 mg by mouth daily at [facility]. Yes hyoscyamine (LEVSIN) 0.125 mg tablet [...] 2:47 PM PLAN OF CARE HNO ID: [id number] Normal 05-29-[address] [place] [address] Author: Irma Estrada (Pharmacist) Center ([id number]) Service: Pharmacy Author Type: Pharmacist Type: Plan of Care Filed: 05/29/2020 2:47 PM Note Text: MEDICATION HISTORY Patient Name:Marlen Vargas : 1980 Source of history:Patient: Reliability of source: Appears re liable, clearly identified: Medication name, Medication frequency an d Timing of last dose and Pharmacy records: [facility] Pharmacy #[id number] in [place], [place] [phone] Medication Nonadherence Identified: No barriers noted The above information represents the best possible medicatio n history: Yes Additional comments: Confirmed with patient and pharmacist hanna hollis [facility] Pharmacy - Recent changes to medications outpatient from Dr. Winn, patient did not start Sucralfate and Promethazine prior to admission and only took 1 dose of Hyoscyamine prior to admission Uhsbj-jk-Fetxmeqjk Medication List Adjustments: Medication Regimen Changes: Promethazine [...] Comments makes agitated and mean Preferred Pharmacy: [facility] Pharmacy #[id number] phone [phone] Current CASING BLOWER Medications: Prior to Admission medications as of 05/29/20 0925 Medication Sig Last Dose Taking prazosin (MINIPRESS) 1 mg cap Take 1 mg by mouth daily at be [facility]. Yes hyoscyamine (LEVSIN) 0.125 mg [...] stomach, 1/2 hr before meal. Maggi Hernandez (Tractor Trailer Driver) May 29, 2020 9:14 AM mdrd gfr on 2020-05 GFR/1.73 sq M >60 >60mL/min/1.73m2 mL/min/{1.73_m2} Normal [facility] among [facility] non-blacks MDRD (000 00) (S/P/Bld) [Vol rate/Area] Comment: Result Comment: If the patie nt is , multiply the result by 1.210. Performed By: #### GFR #### [address] [address] hemogram on 2020-05 Erythrocyte distribution 13.2 11.7-14.4 % Normal 05-29 [facility] width (RBC) [Ratio] System (97108) Comment: Performed By: #### LIP #### [address] [address] Hematocrit (Bld) [Volume 36.1 34.1-44.9 % Normal 05-29 [facility] fraction] System (00 000) Comment: Performed By: #### LIP #### [facility] [address] [place], [place] [address] Hemoglobin (Bld) 11.5 11.2-15.7 g/dL Normal 05-29-2020 [facility] [Mass/Vol] System (0 0000) Comment: Performed By: #### LIP #### [facility] [address] [place], [place] [address] MCH (RBC) [Entitic mass] 29.0 25.6-32.2 pg Normal 05-29 [facility] (00 000) Comment: Performed By: #### LIP #### [facility] [address] [place], [place] [address] MCHC (RBC) [Mass/Vol] 31.9 31.6-34.8 % Normal 05-29-20 20 [facility] (42400) Comment: Performed By: #### LIP #### [facility] [address] [place], [place] [address] MCV (RBC) [Entitic vol] 90.9 79.4-94.8 fl Normal 2019 [facility] (00 000) Comment: Performed By: #### LIP #### [facility] [address] [place], [place] [address] Platelet mean volume (Bld) 10.9 9.4-12.3 fl Normal [facility] [Entitic vol] System (13718) Comment: Performed By: #### LIP #### [facility] [address] [place], [place] [address] Platelets (Bld) [#/Vol] 223 182-369 thou/cmm Normal 2019 [facility] (00 000) Comment: Performed By: #### LIP #### [facility] [address] [place], [place] [address] RBC (Bld) [#/Vol] 3.97 3.93-5.22 mil/cmm Normal 05-29-2020 [facility] (00 000) Comment: Performed By: #### LIP #### [facility] [address] [place], [place] [address] RDW SD 43.5 36.4-46.3 fl Normal 05-29-2020 [facility] (78599) Comment: Performed By: #### LIP #### [facility] [address] [place], [place] [address] WBC (Bld) [#/Vol] 5.88 3.98-10.04 thou/cmm Normal 05-29-2020 [facility] (00 000) Comment: Performed By: #### LIP #### [facility] [address] [place], [place] [address] consult on CONSULT HNO ID: [id number] Normal 05-29-2020 [facility] Author: Maria Luisa Joyner [facility] Service: Pain Management ([id number]) Author Type: Physician Type: Consults Filed: 05/29/2020 11:10 AM Note Text: SALLY VARGAS 39 year old PAIN CONSULTATION: Abdominal pain, history of idiopathic verdugo creatitis. 24 HOUR COMFORT MEDICATIONS: Tylenol x0 Benadryl 50 mg x 2 Phenergan 25 mg x 2 Oxycodone 10 mg x 3 Quetiapine 100 mg daily [place] prescription history Shows occasional use of opiates, [...] hepatic cysts, and no evidence of ac kashia pancreatitis with normal lipase, and CBC. At [...] ORAL q [address] [place] [address] Johnny Personhu - prazosin (MINIPRESS) 1 [...] Approx. 3 cigarettes daily-1 pack every w [place] Substance Use Topics - Alcohol use: Yes [...] gap [Moles/Vol] 11 9-18 mmol/L Normal 05-29-20 [facility] (09678) Comment: Performed By: #### LIP #### [facility] [address] [place], [place] [address] Calcium [Mass/Vol] 8.8 8.5-10.2 mg/dL Normal 05-29-2020 [facility] (00075) Comment: Performed By: #### LIP #### [facility] [address] [place], [place] [address] Chloride [Moles/Vol] 104 97-105 mmol/L Normal 0 [facility] (87039) Comment: Performed By: #### LIP #### [facility] [address] [place], [place] [address] CO2 Blood 23 22-30 mmol/L Normal 05-29-2020 [facility] (33853) Comment: Performed By: #### LIP #### [facility] [address] [place], [place] [address] Creatinine [Mass/Vol] 0.78 0.58-0.96 mg/dL Normal 05-29-20 [facility] (00 000) Comment: Performed By: #### LIP #### [facility] [address] [place], [place] [address] Glucose [Mass/Vol] 88 74-99 mg/dL Normal 05-29-2020 [facility] (96323) Comment: Result Comment: The [place] [employer] [...] 2016;39(Suppl 1). Performed By: #### LIP #### [place] [address] Potassium [Moles/Vol] 3.4 3.7-5.1 mmol/L Low 05-29-20 [facility] (01646) Comment: Performed By: #### LIP #### [place] [address] Sodium [Moles/Vol] 138 136-144 mmol/L Normal 05-29-2020 [facility] (40938) Comment: Performed By: #### LIP #### [place] [address] Urea nitrogen [Mass/Vol] 6 7-21 mg/dL Low 05-29 [facility] (57147) Comment: Performed By: #### LIP #### [place] [address] surgical tissue exam on 2020-05-28 Surgical Tissue Test performed at [facility] Normal 05-28-2020 [facility] [address] [place] [address] ([id number]) NAME: SALLY VARGAS REQUESTING: JOHNNY WINN MD [...] 1 Comment: Performed By: #### LIP #### [place] [address] pt ed on 2020-05-28 PT ED HNO ID: [id number] Normal 05-28-2020 [facility][1] Author: Flakita Ragland RN [facility] ([id number]) Service: Nursing Author Type: Registered Nurse Type: [...] Flakita Ragland RN PT ED HNO ID: [id number] Morrison 05-28-2020 [facility][1] Author: Flakita Ragland RN Center ([id number]) Service: Nursing Author Type: Registered Nurse Type: [...] RN progress on 2020-05 PROGRESS HNO ID: [id number] Normal 05-28-2020 [place] Author: Vickie (Dena Srivastava [facility] Service: Hospital Medicine Medical Author Type: Resident Center Type: Progress Notes ([id number]) Filed: 05/28/2020 1:52 PM Note Text: Attestation [...] PM: You may reach the House Medicine market research intern currently assigned to this patient by findin g their pager number on the treatment team (they will be assigned as the i ntern or resident). It is the last four digits in the phone number be ginning with ([phone]). We encourage the use of oNoise Secure Chat. SUBJECTIVE HPI: 39 year old F PMHx idiopathic pancreatitis, hepatic cys ts presenting to the ED with intractable nausea and vomiting as well as RU Q abdominal pain for the past 3 days. States that she called her GI doct or Dr. Winn and he told her to come into the ED. She has a scope [facility] ed for 05/[address] Winn. [...] 05/25/20 193 -- 05/25/201944 pneumatic compression stockings (mo,vt) VTE Prophylaxis: VTE prophylaxis appropriate GI Prophylaxis: Indicated due to chronic acid suppression th erapy as an outpatient Telemetry: no Disposition: Home Code Status: Not on file Plan of care discussed with: Provider, RN, Patient SIGNATURE: Vickie Srivastava MD PATIENT NAME: Sally shannon DATE: May 28, 2020 TIME: 1:53 PM operative no on 202 OPERATIVE NO HNO ID: [id number] Normal 05-28-20 [facility] Author: Johnny Mccall [facility] Service: Gastroenterology ([id number]) Author Type: Physician Type: Operative Report Filed: 05/28/2020 1:07 PM Note Text: OPERATIVE/PROCEDURE REPORT LOG ID: [id number] Surgery/Procedure Date: 05/28/2020 Incision/Procedure Start Time: 12:32 PM Incision Close/Procedure End Time: 1:00 PM Surgeon(s)/Proceduralist(s) and Quality Control Operator(s): Surgeon(s) and Role: * Johnny Personhu - [...] PPI. nursing prog on NURSING HNO ID: [id number] Normal 05-28-2020 [place] PRO Author: Rupal (Rn) LUCIUS Benitez General Service: Nursing Med ical Author Type: Registered Nurse Center Type: Nursing Progress Note ([id number]) Filed: 05/28/2020 5:25 AM Note Text: Nursing Progress Note Patient Name: Sally Vargas Patient Location: [id number]- Attempted to draw AM labs. Was unsuccessful x 2 attempts. This note was completed by: Rupal Benitez RN hemogram on 2020-05 Erythrocyte distribution 13.2 11.7-14.4 % Normal 05-28 [facility] width (RBC) [Ratio] System (29149) Comment: Performed By: #### LIP #### [address] [address] Hematocrit (Bld) [Volume 32.2 34.1-44.9 % Low 05-28 [facility] fraction] System (00 000) Comment: Performed By: #### LIP #### [facility] [address] [place], [place] [address] Hemoglobin (Bld) [Mass/Vol] 10.1 11.2-15.7 g/dL Low [facility] (00 000) Comment: Performed By: #### LIP #### [facility] [address] [place], [place] [address] MCH (RBC) [Entitic mass] 28.5 25.6-32.2 pg Normal 05-28 [facility] (00 000) Comment: Performed By: #### LIP #### [facility] [address] [place], [place] [address] MCHC (RBC) [Mass/Vol] 31.4 31.6-34.8 % Low 05-28-20 20 [facility] (56325) Comment: Performed By: #### LIP #### [facility] [address] [place], [place] [address] MCV (RBC) [Entitic vol] 90.7 79.4-94.8 fl Normal 2019 [facility] (00 000) Comment: Performed By: #### LIP #### [facility] [address] [place] [id number] Platelet mean volume (Bld) 10.7 9.4-12.3 fl Normal [facility] [Entitic vol] System (00847) Comment: Performed By: #### LIP #### [facility] [address] [place], [place] [address] Platelets (Bld) [#/Vol] 186 182-369 thou/cmm Normal 2019 [facility] (00 000) Comment: Performed By: #### LIP #### [facility] [address] [place], [place] [address] RBC (Bld) [#/Vol] 3.55 3.93-5.22 mil/cmm Low 05-28-2020 [facility] (80487) Comment: Performed By: #### LIP #### [facility] [address] [place], [place] [address] RDW SD 43.3 36.4-46.3 fl Normal 05-28-2020 [facility] (76281) Comment: Performed By: #### LIP #### [facility] [address] [place], [place] [address] WBC (Bld) [#/Vol] 6.36 3.98-10.04 thou/cmm Normal 05-28-2020 [facility] (00 000) Comment: Performed By: #### LIP #### [facility] [address] [place], [place] [address] consult on CONSULT HNO ID: [id number] Normal 05-28-2020 [facility] Author: Ramone Albarado [facility] Service: Pain Management ([id number]) Author Type: Physician Type: Consults Filed: 05/28/2020 9:09 AM Note Text: SALLY VARGAS 39 year old PAIN CONSULTATION: Abdominal pain, history of idiopathic verdugo creatitis. 24 HOUR COMFORT MEDICATIONS: Oxycodone 10 mg x 3 Quetiapine 100 mg daily [place] prescription history Shows occasional use of opiates, [...] hepatic cysts, and no evidence of ac kashia pancreatitis with normal lipase, and CBC. At [...] Approx. 3 cigarettes daily-1 pack every w [place] Substance Use Topics - Alcohol use: Yes [...] [Moles/Vol] 8 9-18 mmol/L Low 05-28-20 20 [facility] (31746) Comment: Performed By: #### LIP #### [facility] [address] [place], [place] [address] Calcium [Mass/Vol] 7.2 8.5-10.2 mg/dL Low 05-28-2020 [facility] (92909) Comment: Performed By: #### LIP #### [facility] [address] [place], [place] [address] Chloride [Moles/Vol] 111 97-105 mmol/L High 0 [facility] (40297) Comment: Performed By: #### LIP #### [facility] [address] [place], [place] [address] CO2 Blood 22 22-30 mmol/L Normal 05-28-2020 [facility] (03351) Comment: Performed By: #### LIP #### [facility] [address] [place], [place] [address] Creatinine [Mass/Vol] 0.69 0.58-0.96 mg/dL Normal 05-28-20 20 [facility] (00 000) Comment: Performed By: #### LIP #### [facility] [address] [place], [place] [address] Glucose [Mass/Vol] 73 74-99 mg/dL Low 05-28-2020 [facility] (10215) Comment: Result Comment: The [employer] [...] #### LIP #### [facility] [address] [place], [place] [address] Potassium [Moles/Vol] 2.9 3.7-5.1 mmol/L Low 05-28-20 20 [facility] (41205) Comment: Performed By: #### LIP #### [facility] [address] [place], [place] [address] Sodium [Moles/Vol] 141 136-144 mmol/L Normal 05-28-2020 [facility] (37608) Comment: Performed By: #### LIP #### [facility] [address] [place], [place] [address] Urea nitrogen [Mass/Vol] 5 7-21 mg/dL Low 05-28 [facility] (11064) Comment: Performed By: #### LIP #### [facility] [address] [place], [place] [address] anes preop on 05-28 ANES PREOP HNO ID: [id number] Normal 05-28-2020 [facility] Author: Delon Florence [facility] Service: Anesthesiology ([id number]) Author Type: Physician Type: Anesthesia PreOp Filed: [...] Benign liver cyst 05/24/2010 CT scan at [facility] 11/2009 and 04/2010 showe 4 mm increase in size . No pain. No elevated LFTs on 03/11/2010. - Calculus of kidney 05/17/[address] Nicolas: Hospitalized age 20, and again later -- no procedures so far ([facility], most, 1995 [facility]) - Cancer (HCC) - Diverticulosis - Dysmenorrhea [...] Approx. 3 cigarettes daily-1 pack every w mohe[place] Substance Use Topics - Alcohol use: Yes [...] May 28, 2020 TIME: 12:15 PM CSN: [id number] anes post on 05-28 ANES POST HNO ID: [id number] Normal 05-28-2020 [facility][1] Author: Delon Deunas [facility] ([id number]) Service: Anesthesiology Author Type: Physician Type: Anesthesia [...] 1001 progress on 2020-05 PROGRESS HNO ID: [id number] Normal 05-27-2020 [facility] Author: Vickie Srivastava [facility] Service: Hospital Medicine Medical Author Type: Resident Center Type: Progress Notes ([id number]) Filed: 05/27/2020 4:19 PM Note Text: Attestation [...] PM: You may reach the House Medicine market research intern currently assigned to this patient by jack mahoney their pager number on the treatment team (they will be assigned as the i ntern or resident). It is the last four digits in the phone number be ginning with ([phone]). We encourage the use of oNoise Secure Chat. SUBJECTIVE HPI: 39 year old F PMHx idiopathic pancreatitis, hepatic cys ts presenting to the ED with intractable nausea and vomiting as well as RU Q abdominal pain for the past 3 days. States that she called her GI doct or Dr. Winn and he told her to come into the ED. She has a scope [facility] ed for 05/[address] Winn. [...] care on PLAN OF CARE HNO ID: [id number] Normal 05-27-20 [facility] Author: Joe Romero) [facility] Service: Gastroenterology ([id number]) Author Type: Physician Quality Control Operator Type: Plan of Care Filed: 05/27/2020 1:17 [...] 27, 2020 TIME: 1:15 PM PAGER/CONTACT #: Obstetrics Gynecology Md Pager hemogram on 2020-05 Erythrocyte distribution 13.3 11.7-14.4 % Normal 05-27 [facility] width (RBC) [Ratio] System (35304) Comment: Performed By: #### LIP #### [address] [address] Hematocrit (Bld) [Volume 35.9 34.1-44.9 % Normal 05-27 [facility] fraction] System (00 000) Comment: Performed By: #### LIP #### [address] [address] Hemoglobin (Bld) 11.3 11.2-15.7 g/dL Normal 05-27-2020 [facility] [Mass/Vol] System (0 0000) Comment: Performed By: #### LIP #### [facility] [address] [place], [place] [address] MCH (RBC) [Entitic mass] 29.1 25.6-32.2 pg Normal 05-27 [facility] (00 000) Comment: Performed By: #### LIP #### [facility] [address] [place], [place] [address] MCHC (RBC) [Mass/Vol] 31.5 31.6-34.8 % Low 05-27-20 20 [facility] (36224) Comment: Performed By: #### LIP #### [facility] [address] [place], [place] [address] MCV (RBC) [Entitic vol] 92.5 79.4-94.8 fl Normal 2019 [facility] (00 000) Comment: Performed By: #### LIP #### [facility] [address] [place] [id number] Platelet mean volume (Bld) 10.6 9.4-12.3 fl Normal [facility] [Entitic vol] System (94834) Comment: Performed By: #### LIP #### [facility] [address] [place], [place] [address] Platelets (Bld) [#/Vol] 197 182-369 thou/cmm Normal 2019 [facility] (00 000) Comment: Performed By: #### LIP #### [facility] [address] [place], [place] [address] RBC (Bld) [#/Vol] 3.88 3.93-5.22 mil/cmm Low 05-27-2020 [facility] (49888) Comment: Performed By: #### LIP #### [facility] [address] [place], [place] [address] RDW SD 44.6 36.4-46.3 fl Normal 05-27-2020 [facility] (98927) Comment: Performed By: #### LIP #### [facility] [address] [place], [place] [address] WBC (Bld) [#/Vol] 6.15 3.98-10.04 thou/cmm Normal 05-27-2020 [facility] (00 000) Comment: Performed By: #### LIP #### [facility] [address] [place], [place] [address] basic metabolic panel on 2020-05-27 Anion gap [Moles/Vol] 10 9-18 mmol/L Normal 05-27-20 20 [facility] (30195) Comment: Performed By: #### LIP #### [facility] [address] [place], [place] [address] Calcium [Mass/Vol] 8.6 8.5-10.2 mg/dL Normal 05-27-2020 [facility] (57507) Comment: Performed By: #### LIP #### [facility] [address] [place], [place] [address] Chloride [Moles/Vol] 106 97-105 mmol/L High 0 [facility] (90530) Comment: Performed By: #### LIP #### [facility] [address] [place], [place] [address] CO2 Blood 24 22-30 mmol/L Normal 05-27-2020 [facility] (72282) Comment: Performed By: #### LIP #### [facility] [address] [place], [place] [address] Creatinine [Mass/Vol] 0.87 0.58-0.96 mg/dL Normal 05-27-20 20 [facility] (00 000) Comment: Performed By: #### LIP #### [facility] [address] [place], [place] [address] Glucose [Mass/Vol] 82 74-99 mg/dL Normal 05-27-2020 [facility] (36436) Comment: Result Comment: The [employer] [...] #### LIP #### [facility] [address] [place], [place] [address] Potassium [Moles/Vol] 3.5 3.7-5.1 mmol/L Low 05-27-20 20 [facility] (14805) Comment: Performed By: #### LIP #### [facility] [address] [place], [place] [address] Sodium [Moles/Vol] 140 136-144 mmol/L Normal 05-27-2020 [facility] (72711) Comment: Performed By: #### LIP #### [facility] [address] [place], [place] [address] Urea nitrogen [Mass/Vol] 7 7-21 mg/dL Normal 05-27 [facility] (59937) Comment: Performed By: #### LIP #### [facility] [address] [place], [place] [address] progress on 2020-05 PROGRESS HNO ID: [id number] Normal 05-26-2020 [facility] Author: Vickie Srivastava [facility] Service: Hospital Medicine Medical Author Type: Resident Center Type: Progress Notes ([id number]) Filed: 05/26/2020 2:11 PM Note Text: Attestation signed by Oh Arreaga at 05/26/2020 2:23 PM Attending Note I personally saw and examined the patient on 05/26/20. I rev iewed the resident's note. I agree with the resident's assessment and plan unless otherwise noted. Signature: Oh Arreaga, DO Date: 05/26/2020 Time: 2:23 PM Pager: [phone] HOUSE MEDICINE SERVICE PROGRESS NOTE SERVICE DATE: May 26, 2020 SERVICE TIME: 1:53 PM NIGHT AND WEEKEND COVERAGE: From 6 AM to 5 PM: You may reach the House Medicine market research intern currently assigned to this patient by jack g their pager number on the treatment team (they will be assigned as the i ntern or resident). It is the last four digits in the phone number be ginning with ([phone]). We encourage the use of oNoise Secure Chat. SUBJECTIVE HPI: 39 year old F PMHx idiopathic pancreatitis, hepatic cys ts presenting to the ED with intractable nausea and vomiting as well as RU Q abdominal pain for the past 3 days. States that she called her GI doct or Dr. Winn and he told her to come into the ED. She has a [facility] ed for 05/[address] Winn. [...] Erythrocyte distribution 13.3 11.7-14.4 % Normal 05-26 [facility] width (RBC) [Ratio] System (82754) Comment: Performed By: #### CBC1 #### [facility] [address] [place], [place] [address] Hematocrit (Bld) [Volume 33.7 34.1-44.9 % Low 05-26 [facility] fraction] System (00 000) Comment: Performed By: #### CBC1 #### [facility] [address] [place], [place] [address] Hemoglobin (Bld) [Mass/Vol] 10.8 11.2-15.7 g/dL Low [facility] ( 000) Comment: Performed By: #### CBC1 #### [facility] [address] [place], [place] [address] MCH (RBC) [Entitic mass] 29.3 25.6-32.2 pg Normal 05-26 [facility] (00 000) Comment: Performed By: #### CBC1 #### [facility] [address] [place], [place] [address] MCHC (RBC) [Mass/Vol] 32.0 31.6-34.8 % Normal 05-26-20 20 [facility] (51431) Comment: Performed By: #### CBC1 #### [facility] [address] [place], [place] [address] MCV (RBC) [Entitic vol] 91.3 79.4-94.8 fl Normal 2019 [facility] (00 000) Comment: Performed By: #### CBC1 #### [facility] [address] [place], [place] [address] Platelet mean volume (Bld) 10.8 9.4-12.3 fl Normal [facility] [Entitic vol] System (65439) Comment: Performed By: #### CBC1 #### [facility] [address] [place], [place] [address] Platelets (Bld) [#/Vol] 226 182-369 thou/cmm Normal 2019 [facility] (00 000) Comment: Performed By: #### CBC1 #### [facility] [address] [place], [place] [address] RBC (Bld) [#/Vol] 3.69 3.93-5.22 mil/cmm Low 05-26-2020 [facility] (98773) Comment: Performed By: #### CBC1 #### [facility] [address] [place], [place] [address] RDW SD 44.3 36.4-46.3 fl Normal 05-26-2020 [facility] (75785) Comment: Performed By: #### CBC1 #### [facility] [address] [place], [place] [address] WBC (Bld) [#/Vol] 9.78 3.98-10.04 thou/cmm Normal 05-26-2020 [facility] (00 000) Comment: Performed By: #### CBC1 #### [facility] [address] [place], [place] [address] coronavirus 2019 on 2020-05-26 COVID 19 Result PLANT PATHOLOGIST Negative CORNE Normal 05-26-2020 [facility] (83706) Comment: Result Comment: Negative for COVID19 (SARS CoV2) by PCR. This test was developed and its performance characteristics determined by 's [facility] [place]. This test has bee n authorized by [...] issued on November 12, 2019. Performing Laboratory: [facility] [address] [place] [address] Performed By: #### [id number] ### # [facility] [address] [place], [place] [address] consult on CONSULT HNO ID: [id number] Normal 05-26-2020 [facility] Author: Joe Romero) [facility] Service: Gastroenterology ([id number]) Author Type: Physician Quality Control Operator Type: Consults Filed: 05/26/2020 11:22 AM Note [...] [facility] She states she was [...] Benign liver cyst 05/24/2010 CT scan at [facility] 11/2009 and 04/2010 showe 4 mm increase in size . No pain. No elevated LFTs on 03/11/2010. - Calculus of kidney 05/17/[address] Nicolas: Hospitalized age 20, and again later -- no procedures so far ([facility], most, 1995 [facility]) - Cancer (HCC) - Diverticulosis - Dysmenorrhea [...] Approx. 3 cigarettes daily-1 pack every w [place] Substance Use Topics - Alcohol use: Yes [...] 26, 2020 TIME: 11:10 AM PAGER/CONTACT #: [phone] After 3PM please use on-call paging system basic metabolic panel on 2020-05-26 Anion gap [Moles/Vol] 9 9-18 mmol/L Normal 05-26-20 [facility] (41435) Comment: Performed By: #### BMP #### [facility] [address] [place], [place] [address] Calcium [Mass/Vol] 9.0 8.5-10.2 mg/dL Normal 05-26-2020 [facility] (87841) Comment: Performed By: #### BMP #### [facility] [address] [place], [place] [address] Chloride [Moles/Vol] 104 97-105 mmol/L Normal 0 [facility] (52885) Comment: Performed By: #### BMP #### [facility] [address] [place], [place] [address] CO2 Blood 25 22-30 mmol/L Normal 05-26-2020 [facility] (13666) Comment: Performed By: #### BMP #### [facility] [address] [place], [place] [address] Creatinine [Mass/Vol] 0.86 0.58-0.96 mg/dL Normal 05-26-20 20 [facility] (00 000) Comment: Performed By: #### BMP #### [facility] [address] [place], [place] [address] Glucose [Mass/Vol] 87 74-99 mg/dL Normal 05-26-2020 [facility] (39387) Comment: Result Comment: The [employer] [...] 2016;39(Suppl 1). Performed By: #### BMP #### [place] [id number] Potassium [Moles/Vol] 3.5 3.7-5.1 mmol/L Low 05-26-20 20 [facility] (12415) Comment: Performed By: #### BMP #### [address] [address] Sodium [Moles/Vol] 138 136-144 mmol/L Normal 05-26-2020 [facility] (92569) Comment: Performed By: #### BMP #### [facility] [address] [place], [place] [address] Urea nitrogen [Mass/Vol] 9 7-21 mg/dL Normal 05-26 [facility] (93192) Comment: Performed By: #### BMP #### [facility] [address] [place], [place] [address] urine drug screen o n 2020-05-25 Urine Alcohol <11 0-11 Normal 05-25-2020 [facility] (46762) Comment: Performed By: #### UDRG3 ### # [address] [address] Urine Amphetamine NEGATIVE NEGATIVE Normal 05-25-2020 [facility] (66438) Comment: Performed By: #### UDRG3 ### # [facility] [address] [place], [place] [address] Urine Barbiturates NEGATIVE NEGATIVE Normal 05-25-2020 [facility] (63903) Comment: Performed By: #### UDRG3 ### # [facility] [address] [place], [place] [address] Urine Benzodiazepine NEGATIVE NEGATIVE Normal 0 [facility] (00 000) Comment: Performed By: #### UDRG3 ### # [facility] [address] [place], [place] [address] Urine Cocaine Metab NEGATIVE NEGATIVE Normal 05-25-2020 [facility] (46076) Comment: Performed By: #### UDRG3 ### # [facility] [address] [place], [place] [address] Urine Opiates see below NEGATIVE Abnormal 05-25-2020 [facility] (63065) Comment: Result Comment: PRESUMPTIVE POSITIVE Performed By: #### UDRG3 ### # [facility] [address] [place], [place] [address] Urine Oxycodone NEGATIVE NEGATIVE Normal 05-25-2020 [facility] (39114) Comment: Performed By: #### UDRG3 ### # [facility] [address] [place], [place] [address] Urine PCP NEGATIVE NEGATIVE Normal 05-25-2020 [facility] (18639) Comment: Result Comment: Test Cutoff Unit Amphetamines 1000 ng/mL Barbiturates 200 ng/mL Benzodiazepines 200 ng/mL Cannabinoids 50 ng/mL Cocaine 300 ng/mL Opiates 300 ng/mL Oxycodone 100 ng/mL Phencyclidine 25 ng/mL Reference Range: Negative at cutoff threshold Immunoassay screen only. Fieldwork Coordinator ss reactivity with other substances can occur [...] the same specimen through the laboratory at ([phone]) if contact ed within 48 hours of initial 1. Substance Abuse and [facility] Administration (2012). Clini sam Drug Testing in Primary Care Technical Assistance Shailaa tiyaquelin Series 32. Department of Health and Human Services, U [place], p.10. Performed By: #### UDRG3 ### # [facility] [address] [place] [address] Urine THC NEGATIVE NEGATIVE Normal 05-25-2020 [facility] (69457) Comment: Performed By: #### UDRG3 ### # [facility] [address] [place] [address] urinalysis routine on 2020-05-25 RBC LM.HPF (Urine sed) 0.0-3 0.0-5.0 Normal 020 [facility] [#/Area] System (00 000) Comment: Performed By: #### URIN2 ### # [facility] [address] [place] [address] Bacteria LM.HPF (Urine sed) NONE None Normal [facility] [#/Area] (32166) Comment: Performed By: #### URIN2 ### # [place] [address] Ep Cells Urine 21.5 0.0-5.0 /hpf High 05-25-2020 [facility] (78222) Comment: Performed By: #### URIN2 ### # [place] [address] Hyaline Cast 0.0 0.0-1.0 /lpf Normal 05-25-2020 [facility] (33041) Comment: Performed By: #### URIN2 ### # [facility] [address] [place] [address] WBC LM.HPF (Urine sed) 2.9 0.0-5.0 /hpf Normal 020 [facility] [#/Area] System (00 000) Comment: Performed By: #### URIN2 ### # [place] [address] Appearance (U) CLOUDY Normal 05-25-2020 [facility] (86576) Comment: Performed By: #### URIN2 ### # [facility] [address] [place], [place] [address] Bilirubin (U) NEGATIVE Negative mg/dL Normal 05-25-2020 [facility] [Mass/Vol] System (0 0000) Comment: Performed By: #### URIN2 ### # [facility] [address] [place], [place] [address] Color (U) YELLOW Normal 05-25-2020 [facility] (64001) Comment: Performed By: #### URIN2 ### # [facility] [address] [place], [place] [address] Glucose Ql (U) NEGATIVE Negative Normal 05-25-2020 [facility] (29758) Comment: Performed By: #### URIN2 ### # [facility] [address] [place], [place] [address] Hemoglobin,Urine NEGATIVE Negative Normal 05-25-2020 [facility] (66694) Comment: Performed By: #### URIN2 ### # [facility] [address] [place], [place] [address] Ketone Urine NEGATIVE Negative Normal 05-25-2020 [facility] (19267) Comment: Performed By: #### URIN2 ### # [facility] [address] [place], [place] [address] Leukocytes Esterase NEGATIVE Negative Normal 05-25-2020 [facility] (83455) Comment: Performed By: #### URIN2 ### # [facility] [address] [place], [place] [address] Nitrites Urine NEGATIVE Negative Normal 05-25-2020 [facility] (45056) Comment: Performed By: #### URIN2 ### # [facility] [address] [place], [place] [address] pH (U) 5.5 5.0-8.0 [pH] Normal 05-25-2020 [facility] (61072) Comment: Performed By: #### URIN2 ### # [facility] [address] [place], [place] [address] Protein (U) [Mass/Vol] NEGATIVE Negative mg/dL Normal 020 [facility] (00 000) Comment: Performed By: #### URIN2 ### # [facility] [address] [place], [place] [address] Specific [place], Ur 1.024 1.005-1.030 Normal 020 [facility] (00 000) Comment: Performed By: #### URIN2 ### # [facility] [address] [place], [place] [address] Urobilinogen,Ur 0.2 0.2-1.0 EU/dL Normal 05-25-2020 [facility] (12012) Comment: Performed By: #### URIN2 ### # [facility] [address] [place], [place] [address] nursing prog on NURSING PROG HNO ID: [id number] Normal 05-25-20 [facility][1] Author: Eleanor PickardRn) [facility] ([id number]) Service: ? Author Type: Registered Nurse Type: [...] dilaudid and fentanyl work best for her. [place] med notified one time 4mg morphine ordered. Pt states it took her pain from 10 to an 8 . 2345: pt requesting something more for pain at this time. Re ceived oxycodone order Q6 PRN. lipase blood on Lipase Blood 25 16-61 U/L Normal 05-25-2020 [facility] (35131) Comment: Performed By: #### LIP #### [facility] [address] [place], [place] [address] hosp on 2020-05-25 HOSP Patient:Sally Vargas Normal 05-15 [facility] MRN: General Height:5' 1(1.549 m) Medical Weight:200 lb 6.4 oz (90.901 kg) Center Outpatient Medications as of 05/28/20: (13462) hyoscyamine (LEVSIN) 0.125 mg tablet sucralfate (CARAFATE) [...] 32.2 % 05/28/2020 44.9 34.1 Progress Notes ([facility]): Pierce Schwartz Ma 05/25/2020 4:24 PM Signed [...] since Thursday night. Patient was seen at [place] ED on Thursday night where she was given fluids, told her labs looked fine and was discharged home. Sameer cheney follows with Dr. Winn for GI as she has a 9 cm cyst in her liver and history of pancreatitis . Patient is scheduled for endoscopy and ultrasound on . She states that Dr. Winn told her to come to [facility] ED for specific type of [...] v Family history: of suicide, attempts, or [place] 1 psychiatri c disorders requiring hospitalization v Precipitants/Stressors/Interpersonal: triggering events le ading to humiliation, shame or despair (e.g; loss of relationship, fi nancial or Health status-real or antici pated). Ongoing medical illness (zohreh. 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 Intoxication. Family turmoil/chaos. History of Physical or sexual abuse. Social isolation. v Change in treatment: discharge from psychiatric hospital, provider or treatment change v Access to firearms 2.??? PROTECTIVE FACTORS pro tective factors, even if present, may not counteract significant acute risk v Internal: ability to cope with stress, taoism beliefs, frustration tolerance v External: responsibility to [...] Benign liver cyst 05/24/2010 CT scan at [facility] 11/2009 and 04/2010 showe 4 mm increase in size . No pain. No elevated LFTs on 03/11/2010. - Calculus of kidney 05/17/[address] Nicolas: Hospitalized age 20, a nd again later -- no procedures so far ([facility], [facility], 1995 [facility]) - Cancer (HCC) - Diverticulosis - Dysmenorrhea [...] Approx. 3 cigarettes daily-1 pack every w [place] Substance and Sexual Activity - Alcohol use: [...] PM: You may reach the House Medicine market research intern currently assigned to this patien t by finding their pager number on the treatment team (they will be assigned as the market research intern or resident). It is the last four digits in the phone num alyson beginning with ([phone]). We encourage the use of oNoise Secure Chat. PCP: Marcelino Mejia MD Admitting [...] Benign liver cyst 05/24/2010 CT scan at [facility] 11/2009 and 04/2010 showe 4 mm increase in size . No pain. No elevated LFTs on 03/11/2010. - Calculus of kidney 05/17/[address] Nicolas: Hospitalized age 20, a nd again later -- no procedures so far ([facility], [facility], 1995 [facility]) - Cancer (HCC) - Diverticulosis - Dysmenorrhea [...] Approx. 3 cigarettes daily-1 pack every w [place] Substance Use Topics - Alcohol use: Yes [...] Benign liver cyst 05/24/2010 CT scan at [facility] 11/2009 and 04/2010 showe 4 mm increase in size . No pain. No elevated LFTs on 03/11/2010. - Calculus of kidney 05/17/[address] Nicolas: Hospitalized age 20, a nd again later -- no procedures so far ([facility], [facility], [facility]) - Cancer (HCC) - Diverticulosis - Dysmenorrhea [...] Approx. 3 cigarettes daily-1 pack every w [place] Substance Use Topics - Alcohol use: Yes [...] 26, 2020 TIME: 11:10 AM PAGER/CONTACT #: [phone] After 3PM please use on-call paging system Vickie Srivastava MD 05/26/2020 2:11 PM Attested Attestation signed by Oh Arreaga at 05/26/2020 2:23 PM Attending Note I personally saw and examined the patient on 05/26/20. I rev iewed the resident's note. I agree with the resident's assessment and plan unless otherwise noted. Signature: Oh Arreaga DO Date: 05/26/2020 Time: 2:23 PM Pager: [phone] HOUSE MEDICINE SERVICE PROGRESS NOTE SERVICE DATE: May 26, 2020 SERVICE TIME: 1:53 PM NIGHT AND WEEKEND COVERAGE: From 6 AM to 5 PM: You may reach the House Medicine market research intern currently assigned to this patien t by finding their pager number on the treatment team (they will be assigned as the market research intern or resident). It is the last four digits in the phone num alyson beginning with ([phone]). We encourage the use of oNoise Secure Chat. SUBJECTIVE HPI: 39 year old [...] 27, 2020 TIME: 1:15 PM PAGER/CONTACT #: Obstetrics Gynecology Md Pager Vickie Srivastava MD 05/27/2020 4:19 PM [...] PM: You may reach the House Medicine market research intern currently assigned to this patien t by finding their pager number on the treatment team (they will be assigned as the market research intern or resident). It is the last four digits in the phone num alyson beginning with ([phone]). We encourage the use of oNoise Secure Chat. SUBJECTIVE HPI: 39 year old [...] DAILY 05/25/201935 -- 05/25/201944 pneumatic compression stockings (mo,vt) VTE Prophylaxis: VTE prophylaxis appropriate GI Prophylaxis: [...] Note Patient Name: Sally Vargas Patient Location: [id number] Attempted to draw AM labs. Was unsuccessful x 2 attempts. This note was completed by: LUCIUS Conley MD 05/28/2020 8:57 AM Incomplete HOUSE MEDICINE SERVICE PROGRESS NOTE SERVICE DATE: May 28, 2020 SERVICE TIME: 1:53 PM NIGHT AND WEEKEND COVERAGE: From 6 AM to 5 PM: You may reach the House Medicine market research intern currently assigned to this patien t by finding their pager number on the treatment team (they will be assigned as the market research intern or resident). It is the last four digits in the phone num alyson beginning with ([phone]). We encourage the use of oNoise Secure Chat. SUBJECTIVE HPI: 39 year old [...] delete will not show in completed note) :[id number] } Intractable nausea and vomiting Intractable nausea [...] delete will not show in completed note) :[id number] } Medication and Non-Pharmacologic VTE Prophylaxis/Anticoagula nts [...] mg x 3 Quetiapine 100 mg daily [place] prescription history Shows occasional use of opiates, [...] Approx. 3 cigarettes daily-1 pack every w [place] Substance Use Topics - Alcohol use: Yes [...] Benign liver cyst 05/24/2010 CT scan at [facility] 11/2009 and 04/2010 showe 4 mm increase in size . No pain. No elevated LFTs on 03/11/2010. - Calculus of kidney 05/17/[address] Nicolas: Hospitalized age 20, a nd again later -- no procedures so far ([facility], [facility]) - Cancer (HCC) - Diverticulosis - Dysmenorrhea [...] Approx. 3 cigarettes daily-1 pack every w [place] Substance Use Topics - Alcohol use: Yes [...] May 28, 2020 TIME: 12:15 PM CSN: [id number] history physical on 2020-05-25 HISTORY HNO ID: [id number] Normal 05-25-2020 [place] PHYSICAL Author: Maggi Flores MD General Service: Hospital Medicine Medical Author Type: Resident Center Type: [facility] ([id number]) Filed: 05/25/2020 5:42 PM Note Text: Attestation [...] PM: You may reach the House Medicine market research intern currently assigned to this patient by findin g their pager number on the treatment team (they will be assigned as the i ntern or resident). It is the last four digits in the phone number be ginning with ([phone]). We encourage the use of oNoise Secure Chat. PCP: Marcelino Mejia MD Admitting [...] Benign liver cyst 05/24/2010 CT scan at [facility] 11/2009 and 04/2010 showe 4 mm increase in size . No pain. No elevated LFTs on 03/11/2010. - Calculus of kidney 05/17/[address] Nicolas: Hospitalized age 20, and again later -- no procedures so far ([facility], [facility], [facility]) - Cancer (HCC) - Diverticulosis - Dysmenorrhea [...] Approx. 3 cigarettes daily-1 pack every w [place] Substance Use Topics - Alcohol use: Yes [...] Immature Grans 0.09 0.00-0.05 thou/cmm High 05-25-2020 [facility] (00 000) Comment: Performed By: #### CBCD1 ### # [address] [address] Abs Neut (ANC) 3.14 1.56-6.13 thou/cmm Normal 05-25-2020 [facility] (91974) Comment: Performed By: #### CBCD1 ### # [address] [address] Abs. Baso 0.06 0.01-0.08 thou/cmm Normal 05-25-2020 [facility] (94635) Comment: Result Comment: Smear scanne d; tech agrees with automated differential Performed By: #### CBCD1 ### # [address] [address] Abs. [place] 0.50 0.27-0.70 thou/cmm Normal 05-25-2020 [facility] (45134) Comment: Performed By: #### CBCD1 ### # [address] [address] Basophils/100 WBC (Bld) 0.7 % Normal 2019 [facility] (56883) Comment: Performed By: #### CBCD1 ### # [address] [address] Eosinophils (Bld) 0.30 0.00-0.31 thou/cmm Normal 05-25-2020 [facility]Vol[facility] (65458) Comment: Performed By: #### CBCD1 ### # [address] [address] Eosinophils/100 WBC (Bld) 3.6 % Normal 05-15 [facility] (25330) Comment: Performed By: #### CBCD1 ### # [facility] [address] [place], [place] [address] Immature Grans 1.10 % Normal 05-25-2020 [facility] (81087) Comment: Performed By: #### CBCD1 ### # [facility] [address] [place], [place] [address] Lymphocytes (Bld) [#/Vol] 4.34 1.18-3.74 thou/cmm High 05-15 [facility] (00 000) Comment: Performed By: #### CBCD1 ### # [facility] [address] [place], [place] [address] Lymphocytes/100 WBC (Bld) 51.5 % Normal 05-15 [facility] (93004) Comment: Performed By: #### CBCD1 ### # [facility] [address] [place], [place] [address] Monocytes/100 WBC (Bld) 5.9 % Normal 2019 [facility] (62204) Comment: Performed By: #### CBCD1 ### # [facility] [address] [place], [place] [address] Seg Neutrophil 37.2 % Normal 05-25-2020 [facility] (92539) Comment: Performed By: #### CBCD1 ### # [facility] [address] [place], [place] [address] Erythrocyte distribution 13.7 11.7-14.4 % Normal 05-25 [facility] width (RBC) [Ratio] System (41138) Comment: Performed By: #### CBCD1 ### # [facility] [address] [place], [place] [address] Hematocrit (Bld) [Volume 39.7 34.1-44.9 % Normal 05-25 [facility] fraction] System (00 000) Comment: Performed By: #### CBCD1 ### # [address] [address] Hemoglobin (Bld) 12.1 11.2-15.7 g/dL Normal 05-25-2020 [facility] [Mass/Vol] System (0 0000) Comment: Performed By: #### CBCD1 ### # [facility] [address] [place], [place] [address] MCH (RBC) [Entitic mass] 28.2 25.6-32.2 pg Normal 05-25 [facility] (00 000) Comment: Performed By: #### CBCD1 ### # [facility] [address] [place], [place] [address] MCHC (RBC) [Mass/Vol] 30.5 31.6-34.8 % Low 05-25-20 20 [facility] (32155) Comment: Performed By: #### CBCD1 ### # [facility] [address] [place], [place] [address] MCV (RBC) [Entitic vol] 92.5 79.4-94.8 fl Normal 2019 [facility] (00 000) Comment: Performed By: #### CBCD1 ### # [facility] [address] [place], [place] [address] Platelet mean volume (Bld) 11.0 9.4-12.3 fl Normal [facility] [Entitic vol] System (99800) Comment: Performed By: #### CBCD1 ### # [facility] [address] [place], [place] [address] Platelets (Bld) [#/Vol] 254 182-369 thou/cmm Normal 2019 [facility] (00 000) Comment: Performed By: #### CBCD1 ### # [facility] [address] [place], [place] [address] RBC (Bld) [#/Vol] 4.29 3.93-5.22 mil/cmm Normal 05-25-2020 [facility] (00 000) Comment: Performed By: #### CBCD1 ### # [facility] [address] [place], [place] [address] RDW SD 46.5 36.4-46.3 fl High 05-25-2020 [facility] (16863) Comment: Performed By: #### CBCD1 ### # [facility] [address] [place], [place] [address] WBC (Bld) [#/Vol] 8.43 3.98-10.04 thou/cmm Normal 05-25-2020 [facility] (00 000) Comment: Performed By: #### CBCD1 ### # [facility] [address] [place], [place] [address] ed prov note on ED PROV NOTE HNO ID: [id number] Normal 05-25-20 [facility][1] Author: Johnnie Long MD Center ([id number]) Service: Emergency Medicine Author Type: Physician Type: [...] 05/26/20 0014 ED PROV NOTE HNO ID: [id number] Normal 05-25-20 [facility][1] Author: Johnnie Long MD [place] ([id number]) Service: Emergency Medicine Author Type: Physician Type: [...] back since night. Patient was seen at [place] ED on Thursday night where sh shiva was given fluids, told her labs looked fine and was discharged home. P raheem follows with Dr. Winn for GI as she has a 9 cm cyst in her liver and history of pancreatitis. Patient is scheduled for endoscopy and ultrasound on Thursday. She states that Dr. Winn told her t o come to [facility] ED for specific type of imaging [...] v Family history: of suicide, attempts, or [place] [facility] psychiatri c disorders requiring hospitalization v Precipitants/Stressors/Interpersonal: triggering events le ading to humiliation, shame or despair (e.g; loss of relationship, fi nancial or Health status-real or anticipated). Ongoing medical illness (zohreh. 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 Intoxication. Family turmoil/chaos. Histor y of Physical or sexual abuse. Social isolation. v Change in treatment: discharge from psychiatric hospital, provider or treatment change v Access to firearms 2.??? PROTECTIVE FACTORS protective factors, even if present , may not counteract significant acute risk v Internal: ability to cope with stress, taoism beliefs, frustration tolerance v External: responsibility to [...] Benign liver cyst 05/24/2010 CT scan at [facility] 11/2009 and 04/2010 showe 4 mm increase in size . No pain. No elevated LFTs on 03/11/2010. - Calculus of kidney 05/17/[address] Nicolas: Hospitalized age 20, and again later -- no procedures so far ([facility], [facility]) - Cancer (HCC) - Diverticulosis - Dysmenorrhea [...] Approx. 3 cigarettes daily-1 pack every w [place] Substance and Sexual Activity - Alcohol use: [...] ed note on ED NOTE HNO ID: [id number] Normal 05-25-2020 [facility][1] Author: Katharine Gonzalez RN [place] ([id number]) Service: Emergency Medicine Author Type: Registered Nurse Type: ED Notes Filed: 05/25/2020 6:31 PM Note Text: RN unavailable for report at 1830 ED NOTE HNO ID: [id number] [place] 05-25-2020 [facility][1] Author: Katharine Gonzalez RN [place] ([id number]) Service: Emergency Medicine Author Type: Registered Nurse Type: ED Notes Filed: 05/25/2020 5:58 PM Note Text: Dr. Mukherjee notified pt asking for something for pain. ED NOTE HNO ID: [id number] [place] 05-25-2020 [facility][1] Author: Kathraine Gonzalez RN [place] ([id number]) Service: Emergency Medicine Author Type: Registered Nurse Type: ED Notes Filed: 05/25/2020 4:00 PM Note Text: Covid swab obtained and sent. ED NOTE HNO ID: [id number] [place] 05-25-2020 [facility][1] Author: Katharine Gonzalez RN [place] ([id number]) Service: Emergency Medicine Author Type: Registered Nurse Type: ED Notes Filed: 05/25/2020 3:08 PM Note Text: Pt to CT by cart. ED NOTE HNO ID: [id number] [place] 05-25-2020 [facility][1] Author: Katharine Gonzalez RN [place] ([id number]) Service: Emergency Medicine Author Type: Registered Nurse Type: ED Notes Filed: 05/25/2020 11:55 AM Note Text: Pt complains of heat flash Temperature adjusted. Resp unla bored. ED NOTE HNO ID: [id number] Normal 05-25-2020 [facility][1] Author: Katharine Gonzalez RN Center ([id number]) Service: Emergency Medicine Author Type: Registered Nurse Type: ED Notes Filed: 05/25/2020 10:42 AM Note Text: Pt complains of itching after Dilaudid. No hives or SOB note d. Dr. Pierre notified and no orders received. Pt given ice. ED NOTE HNO ID: [id number] Normal 05-25-2020 [facility][1] Author: Katharine Gonzalez RN [place] ([id number]) Service: Emergency Medicine Author Type: Registered Nurse Type: ED Notes Filed: 05/25/2020 7:15 AM Note Text: Dr. Miranda notified pt needs SAFE-T form completed. ct abd/pel w ivcon on 2020-05-25 CT ABD/PEL W Final Report Normal 05-25-2020 [facility] IVCON DATE OF EXAM: May 25 2020 3:15PM [facility] 0530 - CT ABD/PEL W IVCON / ([id number]) PROCEDURE REASON: Nausea, vomiting Physician Interpretation EXAMINATION: [...] obe suggestive of small areas of atelectasis. Animal Rescuer (topogram) images: IMPRESSION: 1. No acute intra-abdominal/pelvic abnormalities are identif ied. 2. Bilateral nephrolithiasis. No hydronephrosis is identifie d. 3. Multiple hepatic cysts measuring up to 9.5 cm. 4. Findings consistent with fatty infiltration of liver. Licensed Club Manager: [facility] Transcribe Date/Time: May 25 2020 3:16P Dictated by : ALICE ALCARAZ MD This examination was interpreted and the report reviewed and electronically signed by: ALICE ALCARAZ MD on May 25 2020 3:27PM EST comprehensive metabolic panel on 2020-05-25 Albumin [Mass/Vol] 4.8 3.9-4.9 g/dL Normal 05-25-2020 [facility] (43927) Comment: Performed By: #### CMP #### [facility] [address] [place] [address] ALP [Catalytic activity/Vol] 98 34-123 U/L Normal 0 05-25-2020 [facility] (00 000) Comment: Performed By: #### CMP #### [facility] [address] [place], [place] [address] ALT [Catalytic activity/Vol] 12 7-38 U/L Normal 0 05-25-2020 [facility] (00 000) Comment: Performed By: #### CMP #### [facility] [address] [place], [place] [address] Anion gap [Moles/Vol] 11 9-18 mmol/L Normal 05-25-20 [facility] (97863) Comment: Performed By: #### CMP #### [facility] [address] [place], [place] [address] AST [Catalytic activity/Vol] 14 13-35 U/L Normal 0 05-25-2020 [facility] (00 000) Comment: Performed By: #### CMP #### [facility] [address] [place], [place] [address] Bilirubin [Mass/Vol] 0.4 0.2-1.3 mg/dL Normal 0 [facility] (92223) Comment: Performed By: #### CMP #### [facility] [address] [place], [place] [address] Calcium [Mass/Vol] 9.7 8.5-10.2 mg/dL Normal 05-25-2020 [facility] (10390) Comment: Performed By: #### CMP #### [facility] [address] [place], [place] [address] Chloride [Moles/Vol] 104 97-105 mmol/L Normal 0 [facility] (91441) Comment: Performed By: #### CMP #### [facility] [address] [place], [place] [address] CO2 Blood 24 22-30 mmol/L Normal 05-25-2020 [facility] (52736) Comment: Performed By: #### CMP #### [facility] [address] [place], [place] [address] Creatinine [Mass/Vol] 0.95 0.58-0.96 mg/dL Normal 05-25-20 20 [facility] (00 000) Comment: Performed By: #### CMP #### [facility] [address] [place], [place] [address] Glucose [Mass/Vol] 95 74-99 mg/dL Normal 05-25-2020 [facility] (21361) Comment: Result Comment: The [employer] [...] 2016;39(Suppl 1). Performed By: #### CMP #### [address] [address] Potassium [Moles/Vol] 3.6 3.7-5.1 mmol/L Low 05-25-20 [facility] (99382) Comment: Performed By: #### CMP #### [address] [address] Protein [Mass/Vol] 8.0 6.3-8.0 g/dL Normal 05-25-2020 [facility] (97025) Comment: Performed By: #### CMP #### [address] [address] Sodium [Moles/Vol] 139 136-144 mmol/L Normal 05-25-2020 [facility] (61046) Comment: Performed By: #### CMP #### [address] [address] Urea nitrogen [Mass/Vol] 11 7-21 mg/dL Normal 05-25 [facility] (39831) Comment: Performed By: #### CMP #### [address] [address] cnpn on 2020-05-25 CNPN Telephone (GSTNOR) Normal 05-25-2020 [place] SALLY Martinez ([id number]) 1980 F [place] Date Time Provider Department ([id number]) 05/25/20 JOHNNY WINN GSTSHAYY During your visit [...] 05/25/20 progress on 2020-05 PROGRESS HNO ID: [id number] Normal 05-24-2020 Author: Johnny Winn [place] ([id number]) Service: ? Author Type: Physician Type: Progress [...] go to the ED. Patient went to [place] ED and mentions 'nothing was done. T [...] note she presented to the ED in [place] in January 2020 for a bdominal pain of [address] abdomen was essentially unremarkable i ncluding pancreas. Was found to have lipase of 193 on 02/15/2020. Amylase normal. Hepatic function panel. ? Has h/o cholecystectomy in 1998. PAST MEDICAL HISTORY Diagnosis Date - Allergic rhinitis, cause unspecified 05/17/2008 Spring and summer - Benign liver cyst 05/24/2010 CT scan at [facility] 11/2009 and 04/2010 showe 4 mm increase in size . No pain. No elevated LFTs on 03/11/2010. - Calculus of kidney 05/17/[address] Nicolas: Hospitalized age 20, and again later -- no procedures so far ([facility], [facility], [facility]) - Cancer (HCC) - Diverticulosis - Dysmenorrhea [...] Approx. 3 cigarettes daily-1 pack every w [place] Substance Use Topics - Alcohol use: Yes [...] the ED yesterday - she went to [place] ED and was told that pancreas levels [...] for nausea. Advised to go to the [facility] ED if no improvement in s ymptoms. During this patient visit I have spent approximately 15 luna los in counseling regarding interpretation, education and coordinat ion of care. Johnny Winn MD 3:22 PM progress on 2020-05 PROGRESS HNO ID: [id number] Normal 05-23-2020 [facility][1] Author: Johnny Winn [place] ([id number]) Service: Gastroenterology Author Type: Physician Type: Progress [...] on 2020-05-18 CNPN Telephone (FAMPWS) Normal 05-18-2020 [place] Debra POPESALLY TORRES Jeana ([id number]) 1980 F [place] Date Time Provider Department ([id number]) 05/18/20 MARCELINO MEJIA During your visit today, [...] [M25.519] Order(s):CONSULT TO ORTHOPAEDICS [9026] Order #: [id number] ty: 1 FUTURE Prescriptions as of 05/18/2020 [...] * * *Final Report* * * Normal AP/ZENOBIA AP/OTHR DATE OF EXAM: May 17 2020 12:16PM [place] ([id number]) RT WOX 5253 - XR SHLDR >/=3V AP/ZENOBIA AP/OTHR RT / [id number] PROCEDURE REASON: Acute pain of right shoulder [...] abnormalities identified i n the right shoulder. Licensed Club Manager: [facility] Transcribe Date/Time: May 17 2020 12:18P Dictated by : KORI BLANKENSHIP MD This examination was interpreted and the report reviewed and electronically signed by: KORI BLANKENSHIP MD on May 17 2020 12:20PM EST [id number] progress on 2020-05 PROGRESS HNO ID: [id number] Normal 05-17-2020 Author: Kylee Hills (Rt) Vianey Davenport Lara ([id number]) Service: ? Author Type: Pocketbook Maker Type: Progress Notes Filed: 05/17/2020 12:17 PM [...] 17, 2020 12:08 PM PROGRESS HNO ID: [id number] Normal 05-17-2020 Author: Kenia (Genetic Engineer) Bartolo Lara ([id number]) Service: ? Author Type: Nurse Practitioner Type: Progress Notes Filed: 05/17/2020 12:45 PM Note Text: Visit Date: May 17, 2020 Patient Name: Ms.Nichole Jeana Vargas Date of : 1980 MRN/E #: [id number] Chief Complaint Patient presents with: right shoulder [...] Benign liver cyst 05/24/2010 CT scan at [facility] 11/2009 and 04/2010 showe 4 mm increase in size . No pain. No elevated LFTs on 03/11/2010. - Calculus of kidney 05/17/[address] Nicolas: Hospitalized age 20, and again later -- no procedures so far ([facility]) - Dysmenorrhea - History of blood transfusion [...] Approx. 3 cigarettes daily-1 pack every w [place] Substance Use Topics - Alcohol use: Yes [...] 2020-05-17 CNOV Office Visit ([facility]WSTR) Normal 05-17-20 [place] SALLY Martinez ([id number]) 1980 F [place] Date Time Provider Department ([id number]) 05/17/20 11:45 AM KENIA MCFARLAND (MANUELITO) [facility] During your visit today, we recorded the following informati on about you: Temperature Pulse Respiration Blood pressure 97.8 degrees 86/minute 16/minute 124/82 Weight 89.9 kg Kenia Mcfarland APRN.CNP 05/17/2020 12:45 PM Signed Visit Date: May 17, 2020 Patient Name: Ms.Nichole Jeana Vargas Date of : 1980 MRN/E #: [id number] Chief Complaint Patient presents with: right shoulder [...] Benign liver cyst 05/24/2010 CT scan at [facility] 11/2009 and 04/2010 showe 4 mm increase in size . No pain. No elevated LFTs on 03/11/2010. - Calculus of kidney 05/17/[address] Nicolas: Hospitalized age 20, a nd again later -- no procedures so far ([facility], [facility], [facility]) - Dysmenorrhea - History of blood transfusion [...] Approx. 3 cigarettes daily-1 pack every w [place] Substance Use Topics - Alcohol use: Yes [...] GENERAL 3V OR MORE AP/TRUE AP/OTHER RT [[id number]] Order #: [id number]. #:[id number] Prescriptions as of 05/17/2020 Sig: PANTOPRAZOLE 40 [...] on 05/17/20 No panel information on 2020-05-17 ([id number]) cnpn on 2020-05-11 CNPN Telephone (GSTNOR) Normal 05-11-2020 [place] [facility] SALLY VARGAS ([id number]) 1980 F [place] Date Time Provider Department ([id number]) 05/11/20 JOHNNY WINN GSTNOR During your visit today, we recorded the following informati on about you: Eleanor Anderson Pss 05/11/2020 3:44 PM Signed She is scheduled for egd/eus for You had aslo mentioned seeing a surgeon for liver cysts I need the consult in [facility] Thank you Shahla Allergies As [...] nodules [R91.8] 01/22/2020 More... Encounter Status:Closed by ELAENOR COHEN on 05/29/20 cnco on 2020-05-11 CNCO Letter Text Normal 05-11-2019 [facility] ([id number]) progress on 2020-04 PROGRESS HNO ID: [id number] Normal 05-10-2020 Author: Johnny Winn [place] ([id number]) Service: ? Author Type: Physician Type: Progress [...] pathology on 2020-05-08 SURGICAL Specimen originated from Normal 05-08-2020 [place] [facility] Specimen #: [id number] Clinic Submitting Physician: JOHNNY WINN MD [place] ([id number]) FINAL DIAGNOSIS 1. Random colon, biopsy (A) [...] in one cassette. Gross examination performed at , [address] [place] [address] 05/08/2020 11:06:23 PM B. Received in formalin [...] in one cassette. Gross examination performed at , [address] [place] [address] JT 05/08/2020 11:23:05 PM Date of Report: 05/11/2020 Date of Procedure: 05/08/2020 Date of Receipt: 05/08/2020 Submitted by: JOHNNY WINN MD Location: [facility] Diagnostic interpretation performed at [place] [address]. CLIA Number: [id number] pt ed on 2020-05-08 PT ED HNO ID: [id number] Normal 05-08-2020 Author: Penny Benedict RN [place] ([id number]) Service: ? Author Type: Registered Nurse Type: [...] history physical on 2020-05-08 HISTORY HNO ID: [id number] Normal 05-08-2020 [place] PHYSICAL Author: Johnny Winn [facility] Service: Gastroenterology [place] Author Type: Physician ([id number]) Type: HANDP Filed: 05/08/2020 12:46 PM Note [...] pre-op on 2019 ANES PRE-OP HNO ID: [id number] Normal 0 Author: Tania Castañeda [place] ([id number]) Service: ? Author Type: Nurse Patent Attorney Type: Anesthesia Preprocedure Evaluation Filed: 05/08/2020 12:36 [...] May 08, 2020 TIME: 12:26 PM CSN: [id number] anes postproc eval on 2020-05-08 ANES POSTPROC EVAL HNO ID: [id number] Normal Author: Tania Castañeda [place] ([id number]) Service: ? Author Type: Nurse Patent Attorney Type: Anesthesia Postprocedure Evaluation Filed: 05/08/2020 1:36 [...] May 08, 2020 TIME: 1:36 PM CSN: [id number] No panel information on 2020-05-08 [facility] ([id number]) Patient Name: Sally Vargas Procedure Date: 05/08/2020 [...] Recommendation: - Patient has a contact number [facility]. The signs and symptoms of [...] Estimated Blood Loss: Estimated blood loss: none. [facility] ([id number]) Patient Name: Sally Vargas Procedure Date: 05/08/2020 [...] on 2020-05-07 CNPN Telephone (GSTNOR) Normal 05-07-2020 [place] [facility] SALLY VARGAS ([id number]) 1980 F [place] Date Time Provider Department (39149) 05/07/20 JOHNNY WINN GSTNOR During your visit [...] not draw the celiac panel. Pierce Schwartz TREE AND SHRUB WORKER Allergies As of Date: 05/07/2020 Noted Allergy [...] Status:Closed by PIERCE SCHWARTZ MA on 05/09/20 [facility] on 2020-05-01 [facility] Telephone (GSTNOR) Normal 05-01-2020 [place] SALLY Martinez ([id number]) 1980 F [place] Date Time Provider Department (09800) 05/01/20 JOHNNY WINN GSTNOR During your visit [...] to contact patient for redraw Pierce Schwartz TREE AND SHRUB WORKER Allergies As of Date: 05/01/2020 Noted Allergy [...] and mean Date Reviewed: 04/26/2020 Reviewed by: Johnyn Winn - Fully Assessed Reason for Visit: [...] * * *Final Report* * * Normal - DATE OF EXAM: Apr 30 2020 4:13PM [place] ([id number]) U 1232 - US ABD SPLEEN -NB [...] cyst, enlarged compared to p rior study. Licensed Club Manager: HERMINIO Transcribe Date/Time: Apr 30 2020 4:19P Dictated by : KORI BLANKENSHIP MD This examination was interpreted and the report reviewed and electronically signed by: KORI BLANKENSHIP MD on Apr 30 2020 4:27PM EST [id number] us abd right upper quadrant on 2020-04-30 US ABD RIGHT * * *Final Report* * * Normal 04-14 UPPER QUADRANT DATE OF EXAM: Apr 30 2020 4:13PM [place] ([id number]) WRU 1032 - US ABD RIGHT UPPER [...] cyst, enlarged compared to p rior study. Licensed Club Manager: HERMINIO Transcribe Date/Time: Apr 30 2020 4:19P Dictated by : KORI BLANKENSHIP MD This examination was interpreted and the report reviewed and electronically signed by: KORI BLANKENSHIP MD on Apr 30 2020 4:27PM EST [id number] progress on 2020-04 PROGRESS HNO ID: [id number] Normal 04-30-2020 Author: Kathy Trevino (Tech) [facility] ([id number]) Service: ? Author Type: Pocketbook Maker Type: Progress Notes Filed: 04/30/2020 4:14 PM [...] 2020-04 OBSOLETE Refill (FAMPWS) Normal 04-30-2020 [facility] SALLY VARGAS ([id number]) 1980 [facility] [place] Date Time Provider Department (59503) 04/30/20 MARCELINO MEJIA During your visit today, [...] 04/30/20 igg subclasses+total on 2020-04-30 IgG [Mass/Vol] 9573 574-6162 mg/dL Normal 04-30-2020 [facility] ([id number]) Comment: Performed By: #### IGGSUB ## ##[facility] [place], [place] [id number]- [phone] IgG Subclass 1 757.6 382.4-928.6 mg/dL Normal 04-30-2020 [facility] (15961) Comment: Performed By: #### IGGSUB ## ##[facility] [place], [place] [phone]- [phone] IgG Subclass 2 398.2 241.8-700.3 mg/dL Normal 04-30-2020 [facility] (35754) Comment: Performed By: #### IGGSUB ## ##[facility] [place], [place] [phone]- [phone] IgG Subclass 3 42.7 21.8-176.1 mg/dL Normal 04-30-2020 [facility] (26662) Comment: Performed By: #### IGGSUB ## ## [address] [place], [place] [phone]- [phone] IgG Subclass 4 39.7 3.9-86.4 mg/dL Normal 04-30-2020 [facility] (57112) Comment: Performed By: #### IGGSUB ## ##[facility] [place], [place] [phone]- [phone] cnpn on 2020-04-30 CNPN Telephone (GSTNOR) Normal 04-30-2020 [place] [facility] SALLY VARGAS ([id number]) 1980 [facility] [place] Date Time Provider Department (20941) 04/30/20 JOHNNY WINN GSTNOR During your visit [...] on 04/30/20 No panel information on 2020-04-30 (26122) cnpn on 2020-04-27 CNPN Telephone (FAMPWS) Normal 04-27-2020 [facility] SALLY VARGAS ([id number]) 1980 [facility] Time Provider Department (01299) 04/27/20 [facility] During your visit today, we recorded the following informati on about you: Christopher Carcamo RN 04/27/2020 9:04 AM Signed Patient asking if pcp would send Rx for phenergan to [facility]. Reports she's had nausea for [...] 04/27/20 progress on 2020-04 PROGRESS HNO ID: [id number] Normal 04-26-2020 Author: Johnny Winn [place] ([id number]) Service: ? Author Type: Physician Type: Progress [...] note she presented to the ED in [place] in January 2020 for a bdominal pain [...] Benign liver cyst 05/24/2010 CT scan at [facility] 11/2009 and 04/2010 showe 4 mm increase in size . No pain. No elevated LFTs on 03/11/2010. - Calculus of kidney 05/17/[address] Nicolas: Hospitalized age 20, and again later -- no procedures so far ([facility], most, 1995 [facility]) - Dysmenorrhea - History of blood transfusion [...] Approx. 3 cigarettes daily-1 pack every w mohegan Substance Use Topics - Alcohol use: Yes [...] CNOV Office Visit (GSTNOR) Normal 04-26-20 20 [place] [facility] SALLY VARGAS ([id number]) 1980 [facility] [place] Date Time Provider Department (23537) 04/26/20 3:00 PM JOHNNY WINN GSTNOR During [...] note she presented to the ED in [facility] in January 2020 for abdominal pain [...] Benign liver cyst 05/24/2010 CT scan at [facility] 11/2009 and 04/2010 showe 4 mm increase in size . No pain. No elevated LFTs on 03/11/2010. - Calculus of kidney 05/17/[address] Nicolas: Hospitalized age 20, a nd again later -- no procedures so far ([facility], most, 1995 [facility]) - Dysmenorrhea - History of blood transfusion [...] Approx. 3 cigarettes daily-1 pack every w mohegan Substance Use Topics - Alcohol use: Yes [...] If you do not have a responsible hog driver (family member or friend) with you [...] the prescription bowel preparation solution at your [facility] [employer] pharmacy or drugstore pharmacy. 08/2019 Bowel Preparation [...] or limit intake. Referring Provider: MARCELINO MEJIA [[id number]] Allergies As of Date: 04/26/2020 Noted Allergy [...] 1 BottleRfl : 0 INSERT IV ([place]) [6625612] Order #: [id number]: 1 FUTURE IV DISCONTINUE [4682621] Order #: [id number]: 1 FUTURE INSERT IV ([place]) [5234245] Order #: [id number]: 1 EGD [6782179] Order #: [id number] FUTURE COLONOSCOPY - DIAGNOSTIC [0282420] Order #: [id number] FUTUR E CELIAC DISEASE PANEL [0343272] Order #: [id number] FUTURE IGG SUBCLASSES BLD [SQIGGSUB] Order #: [id number] FUTURE US ABD RT UPPER QUADRANT [1188163] Order #: [id number] FUTUR E metroNIDAZOLE (FLAGYL) 500 mg tabletTake [...] AND PRE-OPERATIVE COVID [SQPOCOVD] Order #: [id number] FUTURE Prescriptions as of 04/26/2020 Sig: DIPHENHYDRAMINE [...] take a taxi or bus, or leave [facility] ALONE. If you do not have a responsible hog driver (famil y member or friend) with [...] the prescription bowel preparation solution at your [facility] pharmacy or drugstore pharmacy. 08/2019 [...] on 2020-04-26 CNCO Letter Text Normal 04-26-2020 [facility] ([id number]) cnpn on 2020-04-19 CNPN Telephone (FAMWS) Normal 04-19-2020 [place] [facility] SALLY VARGAS ([id number]) 1980 [facility] [place] Date Time Provider Department (65215) 04/19/20 MARCELINO MEJIA FAMPWS During your visit today, we recorded the following informati on about you: Christopher Carcamo RN 04/19/2020 10:49 AM Signed Faxed GI referral and demographics to [facility], per patient request. . Allergies As of Date: 04/19/2020 Noted Allergy Reaction PENICILLINS 12/07/2009 2 - Rash ASA (SALICYLATES) 01/27/2011 14 - Other: See Comments Comments: ulcers CONTRAST DYE (IODINE) 05/17/2008 12 - Shortness of Breath FLAGYL (METRONIDAZOLE HCL) 03/11/2010 12 - Shortness of [place] th IBUPROFEN 06/18/2016 8 - GI Upset PREDNISONE 06/18/2016 14 - Other: See Comments Comments: makes agitated and mean Date Reviewed: 02/23/2020 Reviewed by: Marcelino Mejia - Fully Assessed Reason for Visit: Faxed to [facility] [Other] Prescriptions as of [...] Status:Closed by Christopher CARCAMO RN on 04/19/20 [facility] on 2020-04-18 [facility] (FAMWS) Normal 04-18-2020 [place] SALLY Martinez ([id number]) 1980 [place] Date Time Provider Department (18514) 04/18/20 [facility] During your visit today, we recorded the following informati on about you: Yvette Taylor RN 04/18/2020 2:01 PM Signed Pt called, verified by name and birthdate. Pt wants to know if she can see a GI doctor. Reviewed pt's chart and she has a GI con sult with GI group in [place]. Pt verbalized understanding, states she will call to agustin Taylor RN Allergies As of Date: 04/18/2020 Noted Allergy Reaction PENICILLINS 12/07/2009 2 - Rash ASA (SALICYLATES) 01/27/2011 14 - Other: See Comments Comments: ulcers CONTRAST DYE (IODINE) 05/17/2008 12 - Shortness of Breath FLAGYL (METRONIDAZOLE HCL) 03/11/2010 12 - Shortness of [place] th IBUPROFEN 06/18/2016 8 - GI Upset PREDNISONE 06/18/2016 14 - Other: See Comments Comments: makes agitated and mean Date Reviewed: 02/23/2020 Reviewed by: Marcelino Mejia - Fully Assessed Reason for Visit: Patient Question [2457] Prescriptions as of 04/18/2020 Sig: TOPIRAMATE 50 [...] TAYLOR RN on 04/18/20 cnpn on 2020-04-16 [facility] Tele[facility] (FAMPWS) Normal 04-16-2020 [place] SALLY Martinez ([id number]) 1980 [place] Date Time Provider Department (25143) 04/16/20 ROOSEVELTM[facility]ELINO SUAREZ During your visit today, we recorded the following informati on about you: Edwina Tatum DAVID 04/16/2020 11:38 AM Signed Pt calls to report she went to [facility] ER 04/12. Pt reports she went because [...] review and advise. Edwina Dollllow DAVID Edwina [place] LPN 04/17/2020 10:28 AM Signed Pt calls [...] (METRONIDAZOLE HCL) 03/11/2010 12 - Shortness of [place] th IBUPROFEN 06/18/2016 8 - GI Upset [...] SANDERS MA on 04/17/20 cnpn on 2020-03-29 [facility] ([facility]) Normal 03-29-2020 [place] [facility] SALLY VARGAS ([id number]) 1980 [facility] [place] Date Time Provider Department (48865) 03/29/20 MARCELINO MEJIA [facility] During your visit today, we recorded the following informati on about you: Melanie Swenson DIRECTOR OF RESIDENCE LIFE 03/29/2020 10:06 AM Signed Patient calling crying constantly, so congested from a ll the crying, can not get appt with [facility] will not take her insurance. [place] [...] AM Signed 1. Can we confirm that [facility] doesn't take her insurance. If they don't take her insurance then we ca n see if can get her in with Dr. Church since he is back in [facility] now. 2. Find out how long [...] Signed Patient returned call; crying. Message from [employer] ider given. Patient says they don't do [...] she can't take ibuprof en). TC to [facility] and had to leave message for them to return call regarding if they accept patient's insurance. Instructed the m to give patient's name when they return the call so we can document. Lorenzo Vu 03/29/2020 12:49 PM Signed Giulia / [facility] returned call stating the y do not take [employer]; provider is not credentialed with them yet. [...] muscle relaxer for her migraines. Pharmacy is [facility]. Please review and advise. LUCIUS Solis [...] on 2020-03-28 CNPN Telephone (RAMA) Normal 03-28-2020 [place] [facility] SALLY VARGAS ([id number]) 1980 [facility] [place] Date Time Provider Department (43361) 03/28/20 [facility] During your visit today, we recorded [...] 2020-03 OBSOLETE Refill (FAMPWS) Normal 03-27-2020 [facility] SALLY VARGAS ([id number]) 1980 [facility] Time Provider Department (00543) 03/27/20 MARCELINO MEJIAWS During your visit today, [...] on 2020-03-27 CNPN Telephone (FAMWS) Normal 03-27-2020 [place] [facility] SALLY VARGAS ([id number]) 1980 [facility] [place] Date Time Provider Department (99197) 03/27/20 MARCELINO MEJIA [facility] During your visit today, we recorded the following informati on about you: Yvette Taylor RN 03/27/2020 10:59 AM Signed Pt called, verified by name and birthdate. Pt states s he went to [facility] ER last night for a migraine and had a CT scan. Pt wants PCP to review ER records. Pt wants referral to neurology. Order pended. When signed pleas e fax to [facility] at [facility] per pt request Yvette Murphy Ma 03/27/2020 12:20 PM Signed ER reports on PCP's desk to review. Jessica Zhou, RN, RN 03/27/2020 1:37 PM Signed Pt calls, asking what the diagnosis was on the ER note. Pt states she was told air bubble, tumor States Imitrex is not working. Has already taken 2 today. Wa iting on [facility] to call her back Pt asking [...] referral placed and can be faxed to [facility]. Let patient know th e CT did [...] to. See needs to contact her home child care provider to get the help see paulette dick as instructed on 03/22/2020, otherwise our hands are tied. Jessica Murphy Ma 03/27/2020 2:29 PM Signed Pt notified and voiced understanding. Referral and Dem o faxed to [facility]. Jessica Murphy Ma Allergies As of Date: 03/27/2020 Noted Allergy Reaction PENICILLINS 12/07/2009 2 - Rash ASA (SALICYLATES) 01/27/2011 14 - Other: See Comments Comments: ulcers CONTRAST DYE (IODINE) 05/17/2008 12 - Shortness of Breath FLAGYL (METRONIDAZOLE HCL) 03/11/2010 12 - Shortness of [place] th IBUPROFEN 06/18/2016 8 - GI Upset PREDNISONE 06/18/2016 14 - Other: See Comments Comments: makes agitated and mean Date Reviewed: 02/23/2020 Reviewed by: Marcelino Mejia - Fully Assessed Reason for Visit: Patient Update [1234] Primary Visit Diagnosis:Migraine without aura an d without status migrainosus, not intractable [G43.009] Order(s):CONSULT TO NEUROLOGY [9050] Order #: [id number]: 1 FUTURE Prescriptions as of 03/27/2020 Sig: [...] 03/27/20 progress on 2020-03 PROGRESS HNO ID: [id number] Normal 03-22-2020 Author: Isabel (Maya) Hugo Lara ([id number]) Service: ? Author Type: Physician Quality Control Operator Type: Progress Notes Filed: 03/22/2020 9:50 AM [...] to rides. States she couldn't go to [place] for her cardiac testing but continues to have pre syncopal episodes. Has not been able to go see card iologist either. She is specifically asking about going on disability as well . HISTORY REVIEWED (electronic chart updated): - medical history - medications - allergies REVIEW OF SYSTEMS: As noted in HPI PHYSICAL EXAMINATION: [facility] 08/10/2006 Any vital signs collected today were [...] with specialists. contacted and will provider her [facility] recommendations for ride assistance. ISABEL ARIAS PA-C Total appointment time on phone with patient = 11-20 minutes morena on 2020-03-22 CNPN Telephone (FAMPWS) Normal 03-22-2020 [place] [facility] SALLY VARGAS ([id number]) 1980 [facility] [place] Date Time Provider Department (94850) 03/22/20 ISABEL ARIAS) [facility] During your visit today, we recorded the following informati on about you: ISABEL ARIAS PA-C 03/22/2020 9:43 AM Signed Please let patient know that this is info I have received from in regards to rides: The last I knew, most of them were back up and running. I do know that [facility] [employer] has been continuing with their ride assistance and are taking people to their appts. I would sa y they need to check now with insurance to see if able to set up ride. The patient could also see if they can request a home child care provider through their Medicaid Managed Care p maria esther. I have patients that have Medicaid plan and their care managers a re able to assist them setting up services. Having a home child care provider through insu eve is great [...] has a care ma nagelizabeth through medicaid [employer] but she only calls her about once a year. She states she will have to make the MRI and CT appt n ext month when she has rides again. I advised her that she contact [employer] and request more help from her home child care provider. Allergies As of Date: 03/22/2020 [...] ISABEL WARE on 03/22/20 cnpn on 2020-03-08 [facility] Tele[facility] (FAMWS) Normal 03-08-2020 [place] [facility] ABDIFATAHSALLY TORRES ([id number]) 1980 [facility] [place] Date Time Provider Department (24533) 03/08/20 MARCELINO MEJIA During your visit today, [...] transfer to scheduling and while waiting for production scheduler which was awhile, pt dropped call. [...] (METRONIDAZOLE HCL) 03/11/2010 12 - Shortness of [place] th IBUPROFEN 06/18/2016 8 - GI Upset [...] Status:Closed by BRANDEN SANDERS MA on 03/09/20 [facility] on 2020-03-05 [facility] Normal 03-05-2020 [place] [facility] SALLY VARGAS ([id number]) 1980 [facility] [place] Date Time Provider Department (93541) 03/05/20 [facility] MEJIA [facility] During your visit today, we recorded the following informati on about you: Melanie Swenson DIRECTOR OF RESIDENCE LIFE 03/05/2020 2:16 PM Signed Patient calling would like production scheduler to call her back to set [...] stated she has Dr. Cueto for her pan shaker.did not want to go to [place] for [place] [facility] Stress. vic stated she is to see Dr. Joseph here in [place] for Pain Management. Verified that we have [facility] and MRI schedul ed here on [...] on 03/06/20 CNPN Telephone (FAMPWS) Normal 03-05-2020 [place] SALLY Martinez ([id number]) 1980 [place] Date Time Provider Department (38131) 03/05/20 MARCELINO MEJIA During your visit today, we recorded the following informati on about you: Sallie Benitez DIRECTOR OF RESIDENCE LIFE 03/05/2020 1:58 PM Signed Patient is scheduling [...] to call the office. Sarai Diegoh Debby DIRECTOR OF RESIDENCE LIFE 03/05/2020 3:51 PM Signed Patient returned call [...] (METRONIDAZOLE HCL) 03/11/2010 12 - Shortness of [place] th IBUPROFEN 06/18/2016 8 - GI Upset [...] on 2020-02-28 CNPN Telephone (FAMPWS) Normal 02-28-2020 [place] SALLY Martinez ([id number]) 1980 [place] Date Time Provider Department (22089) 02/28/20 MARCELINO MEJIA During your visit today, we recorded the following informati on about you: Janneth Zhou, RN, RN 02/28/2020 10:41 AM Signed Pt calls for ER F/U appt. States she was at [facility] ER on 02/24 after reportidly passing out. [...] (METRONIDAZOLE HCL) 03/11/2010 12 - Shortness of [place] th IBUPROFEN 06/18/2016 8 - GI Upset [...] XR CHEST 1 VIEW ORIGINAL Normal 02-25-2020 [facility] XR CHEST 1 VIEW [facility] ([id number]) CLINICAL STATEMENT: Chest pain COMPARISON: 04/06/2006 FINDINGS: [...] Troponin I.cardiac <0.020 0.000-0.040 ng/mL Normal 0 [facility] [Mass/Vol] [facility] ([address]90) Comment: Result Comment: Troponin I r eference range: 0.00-0.040 ng/mL Negative an d non-diagnostic. >0.040 ng/mL Consistent with cardiac damage, increased clinical risk and possibility of myocardial in farction. Serial measurements, a rise & fall in test results, clinical histo ry, appropriate symptoms and/or ECG changes may help assess possibility of MT. *Other non-acute coronary sy ndrome conditions such as CHF, myoc arditis, pulmonary emboli, sepsis and cardiac surgery could result in myoc ardial damage and increased troponi n levels. Performed By: #### CBC, ADIF F, ANEU, BMP, GFR #### [address] [address] mg on 2020-02-25 Magnesium [Mass/Vol] 2.0 1.8-2.4 mg/dL Normal 0 [facility] ([place]) (0000 0) Comment: Performed By: #### CBC, ADIF F, ANEU, BMP, GFR #### [address] [address] lip on 2020-02-25 Lipase Level 562 73-393 U/L High 02-25-2020 [facility] ([place]) (55730) Comment: Performed By: #### CBC, ADIF F, ANEU, BMP, GFR #### [address] [address] cmp on 2020-02-25 Albumin [Mass/Vol] 4.1 3.5-5.0 G/dL Normal 02-25-2020 [facility] ([place]) (06909) Comment: Performed By: #### CBC, ADIF F, ANEU, BMP, GFR #### [address] [address] Albumin/Globulin [Mass 1.2 1.1-2.5 ratio Normal 020 [facility]) (34011) Comment: Performed By: #### CBC, ADIF F, ANEU, BMP, GFR #### [address] [address] ALP [Catalytic activity/Vol] 98 40-135 U/L Normal 0 02-25-2020 [facility] ([place]) (0000 0) Comment: Performed By: #### CBC, ADIF F, ANEU, BMP, GFR #### [place] [id number] ALT [Catalytic activity/Vol] 30 10-35 U/L Normal 0 02-25-2020 [facility] ([place]) (0000 0) Comment: Performed By: #### CBC, ADIF F, ANEU, BMP, GFR #### [place] [id number] AST [Catalytic activity/Vol] 15 10-40 U/L Normal 0 02-25-2020 [facility] ([place]) (0000 0) Comment: Performed By: #### CBC, ADIF F, ANEU, BMP, GFR #### [address] [address] Bili Total 0.4 0.2-1.0 mg/dL Normal 02-25-2020 [facility]) (38267) Comment: Result Comment: Use of this assay is not recommended for patients undergoing treatment with eltrombopag d ue to the potential for falsely elevated results. Performed By: #### CBC, ADIF F, ANEU, BMP, GFR #### [place] [id number] Calcium [Mass/Vol] 8.9 8.4-10.2 mg/dL Normal 02-25-2020 [facility] ([place]) (0000 0) Comment: Performed By: #### CBC, ADIF F, ANEU, BMP, GFR #### [address] [address] Chloride [Moles/Vol] 104 98-107 mmol/L Normal 0 [facility] ([place]) (0000 0) Comment: Performed By: #### CBC, ADIF F, ANEU, BMP, GFR #### [address] [address] CO2 [Moles/Vol] 28 22-29 mmol/L Normal 02-25-2020 [facility] ([place]) (07157) Comment: Performed By: #### CBC, ADIF F, ANEU, BMP, GFR #### [address] [address] Creatinine [Mass/Vol] 1.01 0.55-1.02 mg/dL Normal 02-25-20 [facility] ([place]) (88552) Comment: Performed By: #### CBC, ADIF F, ANEU, BMP, GFR #### [address] [address] Electrolyte Balance 9.0 mEq/L Normal 02-25-2020 [facility] ([place]) (69753) Comment: Performed By: #### CBC, ADIF F, ANEU, BMP, GFR #### [address] [address] Globulin (S) [Mass/Vol] 3.4 G/dL Normal 2019 [facility] ([place] (90945) Comment: Performed By: #### CBC, ADIF F, ANEU, BMP, GFR #### [address] [address] Glucose [Mass/Vol] 112 70-105 mg/dL High 02-25-2020 [facility] ([place]) (58084) Comment: Performed By: #### CBC, ADIF F, ANEU, BMP, GFR #### [address] [address] Potassium [Moles/Vol] 3.7 3.5-5.1 mmol/L Normal 02-25-20 [facility] ([place]) (0000 0) Comment: Performed By: #### CBC, ADIF F, ANEU, BMP, GFR #### [address] [address] Protein [Mass/Vol] 7.5 6.4-8.2 G/dL Normal 02-25-2020 [facility] ([place]) (02819) Comment: Performed By: #### CBC, ADIF F, ANEU, BMP, GFR #### [address] [address] Sodium [Moles/Vol] 141 136-145 mmol/L Normal 02-25-2020 [facility] ([place]) (0000 0) Comment: Performed By: #### CBC, ADIF F, ANEU, BMP, GFR #### [place] [id number] Urea nitrogen [Mass/Vol] 21 7-18 mg/dL High 02-24 [facility] ([place]) (97893) Comment: Performed By: #### CBC, ADIF F, ANEU, BMP, GFR #### [place] [id number] Urea nitrogen/Creatinine [Mass 21 7-27 ratio Normal 02-25-2020 [facility]] [facility] ([place]) (25320) Comment: Performed By: #### CBC, ADIF F, ANEU, BMP, GFR #### [address] [address] cbc on 2020-02-25 Erythrocyte distribution 14.9 11.5-14.5 % High 02-24 [facility] width (RBC) [Ratio] ([place]) (11870) Comment: Performed By: #### CBC, ADIF F, ANEU, BMP, GFR #### [address] [address] Hematocrit (Bld) [Volume 35.9 37.0-47.0 % Low 02-24 [facility] fraction] ([place]) (0000 0) Comment: Performed By: #### CBC, ADIF F, ANEU, BMP, GFR #### [place] [id number] Hemoglobin (Bld) 11.8 12.0-16.0 G/dL Low 02-25-2020 [facility] [Mass/Vol] ([place]) (000 00) Comment: Performed By: #### CBC, ADIF F, ANEU, BMP, GFR #### [address] [address] MCH (RBC) [Entitic mass] 29.5 27.0-31.2 pg Normal 02-24 [facility] ([place]) (0000 0) Comment: Performed By: #### CBC, ADIF F, ANEU, BMP, GFR #### [address] [address] MCHC (RBC) [Mass/Vol] 32.9 33.0-37.0 G/dL Low 02-25-20 20 [facility] ([place]) (0000 0) Comment: Performed By: #### CBC, ADIF F, ANEU, BMP, GFR #### [address] [address] MCV (RBC) [Entitic vol] 89.9 80.0-94.0 fL Normal 2019 [facility] ([place]) (0000 0) Comment: Performed By: #### CBC, ADIF F, ANEU, BMP, GFR #### [place] [id number] Platelet mean volume 9.2 7.4-10.4 fL Normal 0 [facility] (Bld) [Entitic vol] ([place]) (69277) Comment: Performed By: #### CBC, ADIF F, ANEU, BMP, GFR #### [address] [address] Platelets (Bld) [#/Vol] 265 130-400 10 3/mcL Normal 2019 [facility] ([place]) (82527) Comment: Performed By: #### CBC, ADIF F, ANEU, BMP, GFR #### [address] [address] RBC (Bld) [#/Vol] 4.00 4.20-5.40 10 6/mcL Low 02-25-2020 [facility] ([place]) (0000 0) Comment: Performed By: #### CBC, ADIF F, ANEU, BMP, GFR #### [address] [address] WBC (Bld) [#/Vol] 9.90 4.60-10.80 10 3/mcL Normal 02-25-2020 [facility] ([place]) (19172) Comment: Performed By: #### CBC, ADIF F, ANEU, BMP, GFR #### [address] [address] .neuabs on Neutrophils (Bld) 6.00 2.85-6.16 10 3/mcL Normal 02-25-2020 [facility] [#/Vol] [facility] ([place]) (96146) Comment: Performed By: #### CBC, ADIF F, ANEU, BMP, GFR #### [address] [address] .gfr on 2020-02-25 GFR Non- 61 ml/min/1.73sqm Normal 02-25-2020 [facility] ([place]) (86643) Comment: Result Comment: GFR Population mean for [...] CBC, ADIF F, ANEU, BMP, GFR #### [address] [address] GFR 74 ml/min/1.73sqm Normal 02-12 [facility] ([place]) (0000 0) Comment: Result Comment: GFR Population [...] CBC, ADIF F, ANEU, BMP, GFR #### [address] [address] .auto diff on 02-24 Ammonia (P) [Mass/Vol] 0.60 0.15-1.00 10 3/mcL Normal 02-24- 020 [facility] ([place]) (01252) Comment: Performed By: #### CBC, ADIF F, ANEU, BMP, GFR #### [address] [address] Basophils (Bld) 0.00 0.00-0.19 10 3/mcL Normal 02-25-2020 [facility] [#/Vol] [facility] ([place]) (32371) Comment: Performed By: #### CBC, ADIF F, ANEU, BMP, GFR #### [address] [address] Basophils/100 WBC (Bld) 0.2 0.0-2.5 % Normal 2019 [facility] ([place]) (0000 0) Comment: Performed By: #### CBC, ADIF F, ANEU, BMP, GFR #### [address] [address] Eosinophils (Bld) 0.30 0.00-0.40 10 3/[facility] Normal 02-25-2020 [facility] [#/Vol] [facility] ([place]) (77359) Comment: Performed By: #### CBC, ADIF F, ANEU, BMP, GFR #### [address] [address] Eosinophils/100 WBC (Bld) 3.5 0.0-7.0 % Normal 02-12 [facility] ([place]) (0000 0) Comment: Performed By: #### CBC, ADIF F, ANEU, BMP, GFR #### [address] [address] Lymphocytes (Bld) 2.90 0.77-3.85 10 3/mcL Normal 02-25-2020 [facility] [#/Vol] [facility] ([place]) (87581) Comment: Performed By: #### CBC, ADIF F, ANEU, BMP, GFR #### [facility] [address] [place] [address] Lymphocytes/100 WBC (Bld) 28.9 10.0-50.0 % Normal 02-12 [facility] ([place]) (53433) Comment: Performed By: #### CBC, ADIF F, ANEU, BMP, GFR #### [place] 383470 [address] [place] [address] Monocytes/100 WBC (Bld) 6.3 1.7-13.0 % Normal 2019 [facility] ([place]) (0000 0) Comment: Performed By: #### CBC, ADIF F, ANEU, BMP, GFR #### [place] 383470 [address] [place] [address] Neutrophils/100 WBC (Bld) 61.1 37.0-80.0 % Normal 02-12 [facility] ([place]) (21634) Comment: Performed By: #### CBC, ADIF F, ANEU, BMP, GFR #### [place] 383470 [address] [place] [address] progress on 2020-02 PROGRESS HNO ID: [id number] Normal 02-23-2020 Author: Marcelino Mejia [place] ([id number]) Service: ? Author Type: Physician Type: Progress Notes Filed: 02/23/2020 12:21 PM Note Text: This Team Access Model visit is a phone encounter. It requir ed patient-provider interaction for the medical decision making as documented below. The patient is identified by name and birthday. Patient loca tion: [place] The patient is aware that I am [...] Phone time: 5 min cnpn on 2020-02-20 [facility] (FAMPWS) Normal 02-20-2020 [place] SALLY VARGAS ([id number]) 1980 [facility] [place] Date Time Provider Department ([id number]) 02/20/20 MARCELINO MEJIA During your visit today, we recorded the following informati on about you: Lexy Tapia RN 02/20/2020 8:40 AM Signed fyi- Patient calls to report to PCP that she was back in [facility] ER over weekend due to pain from Pancreatitis. Her level was 800, so they s ent me home. States she received Oxycodone and report s that it is not doing much to relieve her pain and wanted PCP aware that she was in ER again. Patient did not have phone number of [facility] to schedule f ollow up. This [...] Encounter Status:Closed by MARCELINO MEJIA on 02/20/20 [facility] (F[facility]WS) Normal 02-20-2020 [place] S[facility] Martinez ([id number]) 1980 [place] Date Time Provider Department (86509) 02/20/20 MARCELINO MEJIAPWS During your visit today, we recorded the following informati on about you: Melanie Swenson DAVID 02/20/2020 2:25 PM Signed Patient calling wants note sent to PCP, she is currently i n [facility] ER. Patient said she has been sitting there for about 20 minutes now. Marcelino Mejia MD 02/20/2020 2:35 PM Signed Noted. Allergies As of Date: 02/20/2020 Noted Allergy Reaction PENICILLINS 12/07/2009 2 - Rash ASA (SALICYLATES) 01/27/2011 14 - Other: See Comments Comments: ulcers CONTRAST DYE (IODINE) 05/17/2008 12 - Shortness of Breath FLAGYL (METRONIDAZOLE HCL) 03/11/2010 12 - Shortness of [place] th IBUPROFEN 06/18/2016 8 - GI Upset [...] Encounter Status:Closed by MARCELINO MEJIA on 02/20/20 [facility] Telephone (FAMPWS) Normal 02-20-2020 [facility] SALLY VARGAS ([id number]) 1980 [facility] [place] Date Time Provider Department ([id number]) 02/20/20 MARCELINO MEJIA During your visit today, we recorded the following informati on about you: Christopher Carcamo RN 02/20/2020 9:48 AM Signed Patient phoned crying and distraught, stating [facility], can not get her in until March. States she cannot take this pain anymore, her insurance will not cover anyone in [facility] When she was in the hospital [...] pain right now, she is upset because [facility] cannot see her until March. Asking if there is anything pcp can do to get her in sooner? Ple ase phone patient with reply. Marcelino Mejia MD 02/20/2020 10:15 AM Signed Let patient know the only op tions ar for her to go to [facility] ER to see if will be admitted and get Gastro eval there where they have it or I can put in a general referral for the system but that could be anywhere in the system including main campus. Edwina Tatum LPN 02/20/2020 10:43 AM Signed Pt calls back and is very upset because she said she has no one to take her to [place]. She said when she goes to [facility] the y just drug her up and [...] Crying. She cannot get transport ation to [facility]. Insurance does not cover [facility] and do es not want to go back to [facility] because they will just send h er home with meds and dope me up for 3-4 days. Johnathon SOTELO cannot get her an appointment until March . Will route to clerical gastro for schedu ling within [facility] - possibly [facility]. Marcelino Mejia MD 02/20/2020 12:34 PM Signed noted Augustina Vera, [employer].MANUELITO 02/20/2020 12:40 PM Signed I'd suggest that she go to [facility] today. it w ould not be [...] she has no way of getting to [facility]. Pt states she does not th ink they take her insurance either. Spoke with PCP who suggested [facility]. Relayed message to pt, pt started yelling stating she has no transp ortation. States if she calls ambulance they will only take her within [facility]. Sta los her boyfriend can't [...] illness. Asking letter to be faxed to [phone]. Marcelino Mejia MD 02/20/2020 2:38 PM Signed Let patient know ER report from 02/18/2020 was reviewed and th e ER Physician wanted to keep but she preferred to go home and see if she c ould manage it there. Lorenzo Thomascecilia 02/20/2020 4:06 PM Signed Patient returned call, stating she went to [facility] ER today an d they discharged her because her level is less than 800. Reques ting something for pain, that Percocet helped some in past. No transportation to go anywhe re but [facility] (?director of social media marketing to help with transportat ion). Does not [...] doctor. In regards to her letter for [employer] what I [...] Signed Letter ready to be faxed to [phone]. Branden Sanders Ma 02/21/2020 8:24 AM Signed Faxed letter Branden Sanders Ma Allergies As of Date: 02/20/2020 Noted Allergy Reaction PENICILLINS 12/07/2009 2 - Rash ASA (SALICYLATES) 01/27/2011 14 - Other: See Comments Comments: ulcers CONTRAST DYE (IODINE) 05/17/2008 12 - Shortness of Breath FLAGYL (METRONIDAZOLE HCL) 03/11/2010 12 - Shortness of [place] th IBUPROFEN 06/18/2016 8 - GI Upset [...] on 2020-02-16 [facility] Telephone (UCWSTR) Normal 02-16-2020 [place] [facility] SALLY VARGAS ([id number]) 1980 [facility] [place] Date Time Provider Department (02554) 02/16/20 JESSICA JESUS) [facility] During your visit today, we [...] (METRONIDAZOLE HCL) 03/11/2010 12 - Shortness of [place] th IBUPROFEN 06/18/2016 8 - GI Upset [...] on 02/16/20 [facility] Telephone (FAMPWS) Normal 02-16-2020 [place] [facility] SALLY VARGAS ([id number]) 1980 [facility] [place] Date Time Provider Department (21738) 02/16/20 ISABEL ARIAS) [facility] During your visit today, [...] 02/16/20 progress on 2020-02 PROGRESS HNO ID: [id number] Normal 02-15-2020 Author: Marcelino Mejia [place] ([id number]) Service: ? Author Type: Physician Type: Progress [...] at today?s visit. Patient was sen in [facility] ER on 02/01/2020 with C/O epigastric p [...] nosis) - CONSULT TO GASTROENTEROLOGY: [facility] in [place] - Cont prn phenergan. 2. Tongue ulcer [...] 02-15-2020 [facility] activity/Vol] [place] and (76426) Comment: Performed By: #### LIPA, CMP , CBCDIF, AMYL #### [facility] [address] [place], [place] [address] comp metabolic panel on 2020-02-15 Albumin [Mass/Vol] 4.6 3.9-4.9 g/dL Normal 02-15-2020 [facility] (40991) Comment: Performed By: #### LIPA, CMP , CBCDIF, AMYL #### [facility] [address] [place], [place] [address] ALP [Catalytic activity/Vol] 90 34-123 U/L Normal 0 02-15-2020 [facility] (93625) Comment: Performed By: #### LIPA, CMP , CBCDIF, AMYL #### [facility] [address] [place], [place] [address] ALT [Catalytic activity/Vol] 6 7-38 U/L Low 0 02-15-2020 [facility] (10499) Comment: Performed By: #### LIPA, CMP , CBCDIF, AMYL #### [place] [id number] Anion gap [Moles/Vol] 13 9-18 mmol/L Normal 02-15-20 20 [facility] (54269) Comment: Performed By: #### LIPA, CMP , CBCDIF, AMYL #### [address] [address] AST [Catalytic activity/Vol] 20 13-35 U/L Normal 0 02-15-2020 [facility] (09840) Comment: Performed By: #### LIPA, CMP , CBCDIF, AMYL #### [address] [address] Bilirubin [Mass/Vol] 0.2 0.2-1.3 mg/dL Normal 0 [facility] (56794) Comment: Performed By: #### LIPA, CMP , CBCDIF, AMYL #### [address] [address] Calcium [Mass/Vol] 10.2 8.5-10.2 mg/dL Normal 02-15-2020 [facility] (27138) Comment: Performed By: #### LIPA, CMP , CBCDIF, AMYL #### [address] [address] Chloride [Moles/Vol] 100 97-105 mmol/L Normal 0 [facility] (18909) Comment: Performed By: #### LIPA, CMP , CBCDIF, AMYL #### [facility] [address] [place], [place] [address] CO2 [Moles/Vol] 26 22-30 mmol/L Normal 02-15-2020 [facility] (06837) Comment: Performed By: #### LIPA, CMP , CBCDIF, AMYL #### [facility] [address] [place], [place] [address] Creatinine [Mass/Vol] 0.92 0.58-0.96 mg/dL Normal 02-15-20 20 [facility] (27077) Comment: Performed By: #### LIPA, CMP , CBCDIF, AMYL #### [facility] [address] [place] [address] eGFR- Amer. >60 Normal 02-15-2020 [facility] (23331) Comment: Performed By: #### LIPA, CMP , CBCDIF, AMYL #### [facility] [address] [place] [address] GFR/1.73 sq M predicted >60 mL/min/{1.73_m2} Normal 02-15-2020 among non-blacks [facility] (75545) (S/P/Bld) [Vol rate/Area] Comment: Result Comment: eGFR [...] #### LIPA, CMP , CBCDIF, AMYL #### [facility] [address] [place] [id number] Glucose [Mass/Vol] 89 74-99 mg/dL Normal 02-15-2020 [facility] (35424) Comment: Result Comment: The [place] [employer] [...] for diagnosis of diabetes. Reference: Standards of [facility] Care in Diabetes 2016, [place] [employer]. Diabetes Care. 2016.39(Suppl 1). Performed By: #### LIPA, CMP , CBCDIF, AMYL #### [facility] [address] [place], [place] [address] Potassium [Moles/Vol] 3.7 3.7-5.1 mmol/L Normal 02-15-20 [facility] (45526) Comment: Performed By: #### LIPA, CMP , CBCDIF, AMYL #### [facility] [address] [place], [place] [address] Protein [Mass/Vol] 7.8 6.3-8.0 g/dL Normal 02-15-2020 [facility] (50865) Comment: Performed By: #### LIPA, CMP , CBCDIF, AMYL #### [facility] [address] [place], [place] [address] Sodium [Moles/Vol] 139 136-144 mmol/L Normal 02-15-2020 [facility] (36801) Comment: Performed By: #### LIPA, CMP , CBCDIF, AMYL #### [facility] [address] [place], [place] [address] Urea nitrogen [Mass/Vol] 9 7-21 mg/dL Normal 02-14 [facility] (41250) Comment: Performed By: #### LIPA, CMP , CBCDIF, AMYL #### [facility] [address] [place], [place] [address] cnov on 2020-02-15 CNOV Office Visit (FAMPWS) Normal 02-15-[address] [place] [address] Debra SALLY VARGAS ([id number]) 1980 [facility] [place] Date Time Provider Department (70081) 02/15/20 2:20 PM [facility] your visit today, we recorded [...] at today?s visit. Patient was sen in [facility] ER on 02/01/2020 with C/O epigastric pain [...] diagnosis) - CONSULT TO GASTROENTEROLOGY: [facility] in [place] - Cont prn phenergan. 2. Tongue ulcer [...] for Visit: Transition Of Care [4074] Cmt: [facility] pancreatitis Reason For Visit History Recorded Primary Visit Diagnosis:Acute pancreatitis without infection or necrosis, unspecified pancreatitis type [K85.90] Other Visit Diagnoses:Tongue ulcer [K14.0] Poor dentition [K08.9] Thrush [B37.0] Order(s):CONSULT TO GASTROENTEROLOGY [7691] Order #: [id number]: 1 FUTURE triamcinolone (KENALOG IN ORABASE) 0.1 [...] Abs Baso 0.07 <0.11 k/uL Normal 02-15-2020 [facility] (00447) Comment: Performed By: #### LIPA, CMP , CBCDIF, AMYL ####[place] [address] [address] [place] [phone] Abs [place] 0.53 <0.87 k/uL Normal 02-15-2020 [facility] (15611) Comment: Performed By: #### LIPA, CMP , CBCDIF, AMYL ####[facility] [place] [phone] Abs Neut 6.05 1.45-7.50 k/uL Normal 02-15-2020 [facility] (98045) Comment: Performed By: #### LIPA, CMP , CBCDIF, AMYL ####[facility] [place] [phone] Absolute nRBC <0.01 <0.01 Normal 02-15-2020 [facility] (68176) Comment: Performed By: #### LIPA, CMP , CBCDIF, AMYL ####[facility] [place] [phone] Basophils/100 WBC (Bld) 0.7 % Normal 2019 [facility] (95668) Comment: Performed By: #### LIPA, CMP , CBCDIF, AMYL ####[facility] [place] [phone] DTYPE Auto Diff Normal 02-15-2020 [facility] (91949) Comment: Performed By: #### LIPA, CMP , CBCDIF, AMYL #### [id number] [place] [phone] Eosinophils (Bld) [#/Vol] 0.38 <0.46 k/uL Normal - [facility] (88194) Comment: Performed By: #### LIPA, CMP , CBCDIF, AMYL #### [address] [place] [phone] Eosinophils/100 WBC (Bld) 3.9 % Normal [facility] (98900) Comment: Performed By: #### LIPA, CMP , CBCDIF, AMYL ####[facility] [place] [phone] Erythrocyte distribution 14.7 11.5-15.0 % Normal 02-14 width (RBC) [Ratio] [place] (83872) Comment: Performed By: #### LIPA, CMP , CBCDIF, AMYL #### [address] [place] [phone] Hematocrit (Bld) [Volume 40.4 36.0-46.0 % Normal 02-14 fraction] [place] (33562) Comment: Performed By: #### LIPA, CMP , CBCDIF, AMYL #### [address] [place] [phone] Hemoglobin (Bld) 12.0 11.5-15.5 g/dL Normal 02-15-2020 [facility] [Mass/Vol] [place] (93467) Comment: Performed By: #### LIPA, CMP , CBCDIF, AMYL #### [address] [place] [phone] Lymphocytes (Bld) [#/Vol] 2.77 1.00-4.00 k/uL Normal -0 [facility] (55588) Comment: Performed By: #### LIPA, CMP , CBCDIF, AMYL ####[facility] [place], [place] [phone] Lymphocytes/100 WBC (Bld) 28.3 % Normal [facility] (91886) Comment: Performed By: #### LIPA, CMP , CBCDIF, AMYL ####[facility] [place] [phone] MCH (RBC) [Entitic mass] 28.6 26.0-34.0 pG Normal 02-14 [facility] (58865) Comment: Performed By: #### LIPA, CMP , CBCDIF, AMYL ####[place] [address] [place], [place] [phone] MCHC (RBC) [Mass/Vol] 29.7 30.5-36.0 g/dL Low 02-15-20 [facility] (55527) Comment: Performed By: #### LIPA, CMP , CBCDIF, AMYL ####[facility] [place], [place] [phone] MCV (RBC) [Entitic vol] 96.4 80.0-100.0 fL Normal 02-14 [facility] (47818) Comment: Performed By: #### LIPA, CMP , CBCDIF, AMYL ####[facility] [place], [place] [phone] Monocytes/100 WBC (Bld) 5.4 % Normal 2019 [facility] (52356) Comment: Performed By: #### LIPA, CMP , CBCDIF, AMYL ####[facility] [place], [place] [phone] Neutrophils/100 WBC (Bld) 61.7 % Normal [facility] (98419) Comment: Performed By: #### LIPA, CMP , CBCDIF, AMYL ####[place] [address] [place], [place] [phone] NRBCs 0.0 0 /100 WBC Normal 02-15-2020 [facility] (89630) Comment: Performed By: #### LIPA, CMP , CBCDIF, AMYL ####[place] [address] [place] [phone] Platelet mean volume 10.6 9.0-12.7 fL Normal 0 (Bld) [Entitic vol] [place] (47325) Comment: Performed By: #### LIPA, CMP , CBCDIF, AMYL ####[place] [address] [place] [phone] Platelets (Bld) [#/Vol] 435 150-400 k/uL High 2019 [facility] (23106) Comment: Performed By: #### LIPA, CMP , CBCDIF, AMYL ####[place] [address] [place] [phone] RBC (Bld) [#/Vol] 4.19 3.90-5.20 m/uL Normal 02-15-2020 [facility] (05494) Comment: Performed By: #### LIPA, CMP , CBCDIF, AMYL ####[place] [address] [place] [phone] WBC (Bld) [#/Vol] 9.80 3.70-11.00 k/uL Normal 02-15-2020 [facility] (77956) Comment: Performed By: #### LIPA, CMP , CBCDIF, AMYL ####[place] [address] [place] [phone] amylase on Amylase [Catalytic 52 30-104 U/L Normal 02-15-2020 activity/Vol] [place] and (96089) Comment: Performed By: #### LIPA, CMP , CBCDIF, AMYL #### [facility] [address] [place], [place] [address] progress on 2020-02 PROGRESS HNO ID: [id number] Normal 02-14-2020 Author: Jessica Coppola) Fabi Lara ([id number]) Service: ? Author Type: Physician Quality Control Operator Type: Progress Notes Filed: 02/14/2020 1:14 PM [...] Benign liver cyst 05/24/2010 CT scan at [facility] 11/2009 and 04/2010 showe 4 mm increase in size . No pain. No elevated LFTs on 03/11/2010. - Calculus of kidney 05/17/[address] Nicolas: Hospitalized age 20, and again later -- no procedures so far ([facility], most, 1995 [facility]) - Dysmenorrhea - Impaired fasting glucose 05/17/2008 [...] MG DAILY September 02, 2019 5:34am 09-02-2019 [facility] ([id number]) - ondansetron orally disintegrating (ZOFRAN ODT) 4 [...] Approx. 3 cigarettes daily-1 pack every w [place] Substance Use Topics - Alcohol use: Yes [...] Sp. Request/Comment: - Swab Critical ly 02-14-2020 abnormal [place] [facility] Result - Few Neris glabrata --> ABNORMAL ALERT ([id number]) Comment: Performed By: #### FUNGSC ## ## [id number] [place], [place] [phone] cnov on 2020-02-14 CNOV Office Visit (UCWSTR) Normal 02-14-20 [place] [facility] SALLY VARGAS ([id number]) 1980 F [place] Date Time Provider Department ([id number]) 02/14/20 12:45 PM JESSICA JESUS (CHAZ) [facility] During your visit today, we [...] Benign liver cyst 05/24/2010 CT scan at [facility] 11/2009 and 04/2010 showe 4 mm increase in size . No pain. No elevated LFTs on 03/11/2010. - Calculus of kidney 05/17/[address] Nicolas: Hospitalized age 20, a nd again later -- no procedures so far ([facility], most, 1995 [facility]) - Dysmenorrhea - Impaired fasting glucose 05/17/2008 [...] DAILY September 02, 2019 5:34am 20-2 019 [facility] ([id number]) - ondansetron orally disintegrating (ZOFRAN ODT) 4 [...] Approx. 3 cigarettes daily-1 pack every w [place] Substance Use Topics - Alcohol use: Yes [...] (METRONIDAZOLE HCL) 03/11/2010 12 - Shortness of [place] th IBUPROFEN 06/18/2016 8 - GI Upset [...] mLRfl: 0 FUNGAL SCREEN [SQFUNGSC] Order #: [id number] Prescriptions as of 02/14/2020 Sig: PROMETHAZINE 25 [...] JESUS PA-C on 02/14/20 cnpn on 2020-02-[facility] Normal 02-13-2020 [place] [facility] SALLY VARGAS ([id number]) 1980 [facility] [place] Date Time Provider Department ([id number]) 02/13/20 [facility] During your visit today, we recorded the following informati on about you: Christopher Carcamo RN 02/13/2020 10:27 AM Signed Patient reports she was discharged from [facility] yesterday, after a 4 day stay, for pancreatitis. Scheduled f/u visit with CHAZ, for tomorro w. Patient asking note be sent to provider also. Reports she still has a sore on he r tongue, [facility] doctor was not concerned about it. She [...] (METRONIDAZOLE HCL) 03/11/2010 12 - Shortness of [place] th IBUPROFEN 06/18/2016 8 - GI Upset PENICILLINS 12/07/2009 2 - Rash PREDNISONE 06/18/2016 14 - Other: See Comments Comments: makes agitated and mean Date Reviewed: 01/02/2020 Reviewed by: Ashley Lehman Ma - Fully Assessed Reason for Visit: [facility] visit [Other] Prescriptions as of 02/13/2020 Sig: [...] on 2020-02-09 CNPN Telephone (FAMWS) Normal 02-09-2020 [place] [facility] SALLY VARGAS ([id number]) 1980 [facility] [place] Date Time Provider Department ([id number]) 02/09/20 [facility] During your visit today, we recorded [...] calls back, stating she is currently at [facility] ER. States she had labs done and [...] (METRONIDAZOLE HCL) 03/11/2010 12 - Shortness of [place] th IBUPROFEN 06/18/2016 8 - GI Upset [...] 02/09/20 progress on 2020-01 PROGRESS HNO ID: [id number] Normal 02-08-2020 Author: Isabel Romero) Hugo Lara ([id number]) Service: ? Author Type: Physician Quality Control Operator Type: Progress Notes Filed: 02/08/2020 10:57 AM Note Text: DISTANCE HEALTH VISIT This Team Access Model visit is a phone encounter. It requir ed patient-provider interaction for the medical decision making as documented below. No video was used for evaluation of this patient. Patient consents to visit. Patient location: [place] Sally Vargas is a 39 year old [...] per patient report who presented to the [facility] ED on 02/01/20 with i ntermittent epigastric [...] seroquel and she has talked with [facility] office for what to do next. She has been taking oxycodone every 4 hours but has not need any yet today. Does mention a sore on her forearm. States getting worse. Red and hardened. 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 States she noticed it first in hospital. She is unable to send picture or have video conference. Is w illing to come to . HISTORY REVIEWED (electronic chart updated): - medical history - medications - allergies REVIEW OF SYSTEMS: As noted in HPI PHYSICAL EXAMINATION: [facility] 08/10/2006 No vitals taken. Deferred physical [...] minutes progress on 2020-01 PROGRESS HNO ID: [id number] Normal 02-07-2020 Author: Yvette Taylor RN [place] ([id number]) Service: ? Author Type: ? Type: Progress [...] might be hidden SUMMARY: -Pt discharged from [facility] on 02-05-2020. -Follow up appointment on 02-08-2020. [...] per patient report who presented to the [facility] ED on 02/01/20 with i ntermittent epigastric [...] CNPTOUTREACH Patient Outreach (FAMPWS) Normal 0 02-07-2020 [place] [facility] SALLY VARGAS ([id number]) 1980 [facility] [place] Date Time Provider Department ([id number]) 02/07/20 MARCELINO MEJIA FAMPWS During your visit [...] might be hidden SUMMARY: -Pt discharged from [facility] on 02-05-2020. -Follow up appointment on 02-08-2020. [...] a 39 y/o F w/ PMHx: Obesity, Syruper nghia Pain Syndrome, Migraines, Known Lung Nodules, Hx Uteri ne CA, Hx Nephrolithiasis, Tobacco use, Anxiety and Depression with Suspected Bipolar disorder recently starte d on seroquel and sertraline, Recent Dental ev aluation with Infection on clindamycin with planned upcoming removal in 4-6 week s per patient report who presented to the [facility] ED on 02/01/20 with intermittent epigastric pain [...] 02/07/20 emergency report on 2020-01-28 EMERGENCY REPORT [facility] Normal 01-27 [facility] EMERGENCY ROOM REPORT ([id number]) NAME ACCOUNT SEX AGE ADMIT DISCHARGE PT MED. RECORD# NUMBER DATE DATE TYPE SAM, [id number] F 39 01/20/20 01/21/20 3 SALLY [id number] ROOM: ER DATE OF : 1980 DICTATING [...] PHYSICAL EXAMINATION: Physic al examination reveals a tvj-tbb-zdlrsglcj female in no acute distress, resting c [...] Discussed the patient with Dr. Coleman at [facility], who accepted the patient for admission. The patient was transferred to [facility] in stable condition. Dictated By: Ana Rodriguez MD 01/21/20 01:30 JOB #: [id number] Transcribed By: thanh 01/21/20 10:04 Electronically signed by: Jennifer Perez MD 01/28/20 00:29 Page 2 of 2 SALLY VARAGS Emergency Room Report myco on 2020-01-26 Mycoplasma IgG POS Normal 01-26-2020 [facility] ([place]) ([id number]) Comment: Result Comment: INTERPRETATI ON OF MYCOPLASMA [...] CBC, ADIF F, ANEU, BMP, GFR #### [place] [address] progress on 2020-01 PROGRESS HNO ID: [id number] Normal 01-25-2020 [facility] Author: Roxanne Patel MA ([id number]) Service: ? Author Type: Compression Molding Machine Tender Type: Progress Notes Filed: 01/25/2020 7:39 AM Note Text: Te made to get setup. Roxanne Patel MA cnpn on 2020-01-25 CNPN Telephone (FAMPWS) Normal 01-25-2020 [place] [facility] SALLY VARGAS ([id number]) 1980 [facility] [place] Date Time Provider Department ([id number]) 01/25/20 ISABEL ARIAS) RAMA During your visit [...] schedule an MRI of the Brain Milly aH Norma Pss 01/25/2020 3:35 PM Signed Spoke [...] Fully Assessed Reason for Visit: MRI Appointment [[id number]] Prescriptions as of 01/25/2020 Sig: TOPIRAMATE 25 [...] 01/26/20 progress on 2020-01 PROGRESS HNO ID: [id number] Normal 01-24-2020 Author: Isabel Lara ([id number]) Service: ? Author Type: Physician Quality Control Operator Type: Progress Notes Filed: 01/24/2020 4:03 PM Note Text: DISTANCE HEALTH VISIT This Team Access Model visit is a phone encounter. It requir ed patient-provider interaction for the medical decision making as documented below. No video was used for evaluation of this patient. Patient consents to visit. Patient's location: [place] Chief Complaint No chief complaint on file. [...] patient was to see pain specialist in [facility]. She has missed or [...] over the weekend. She was transferred to [place] in [place]. Reports n ot available but patient states ECHO and labs were normal. . States she received a phone call from an [facility] And was told negative for Covid. But [...] pharmacy. She did receive phone call from pan shaker last week and w ill be set up for heart monitor. She was suppose to have stress testing done at [facility] today and Carotid US done yesterday, but [...] Benign liver cyst 05/24/2010 CT scan at [facility] 11/2009 and 04/2010 showe 4 mm increase in size . No pain. No elevated LFTs on 03/11/2010. - Calculus of kidney 05/17/[address] Nicolas: Hospitalized age 20, and again later -- no procedures so far ([facility], most, 1995 [facility]) - Dysmenorrhea - Impaired fasting glucose 05/17/2008 [...] MG DAILY September 02, 2019 5:34am 09-02-2019 [facility] ([id number]) - ondansetron orally disintegrating (ZOFRAN ODT) 4 [...] Approx. 3 cigarettes daily-1 pack every w [place] Substance Use Topics - Alcohol use: Yes [...] - ICD9: 786.59, ICD10: R07.89 Continue with pan shaker. Will attempt to get records to see [...] minutes covid on 2020-01-24 COVID 19 Result PLANT PATHOLOGIST See Below CORNEG Normal 01-24-2020 [facility] ([place]) (0000 0) Comment: Result Comment: Negative Negative for COVID19 (SARS C oV2) by PCR. This test was developed and its performance characteristics determined by '[facility] [place]. This test has bee n authorized by [...] issued on November 12, 2019. Performed By: [facility] [place] [address] Vest Baster: Raphael javier III, M.D. CLIA#: [id number] Phone#: Performed By: #### CBC, ADIF F, ANEU, BMP, GFR #### [place] [address] COVID 19 Source PLANT PATHOLOGIST See Below Normal 01-24-2020 [facility] ([place]) ([id number]) Comment: Result Comment: Nasopharynge al Swab Performed By: [facility] [address] [place] [address] Vest Baster: Raphael javier III, M.D. CLIA#: [id number] Phone#: Performed By: #### CBC, ADIF F, ANEU, BMP, GFR #### [address] [address] myco on 2020-01-23 Mycoplasma IgM Negative Normal 01-23-2020 [facility] ([place]) ([id number]) Comment: Result Comment: INTERPRETATI ON OF MYCOPLASMA [...] CBC, ADIF F, ANEU, BMP, GFR #### [address] [address] crp on 2020-01-23 CRP [Mass/Vol] 0.57 <=0.80 mg/dL Normal 01-23-2020 [facility] ([place]) ([id number]) Comment: Performed By: #### CBC, ADIF F, ANEU, BMP, GFR #### [facility] [address] [place] [address] cnpn on 2020-01-23 CNPN Telephone (FAMPWS) Normal 01-23-2020 [place] [facility] SALLY VARGAS ([id number]) 1980 [place] Date Time Provider Department (91583) 01/23/20 ISABEL ARIAS) FAMPWS During your visit today, we recorded the following informati on about you: Lexy Tapia RN 01/23/2020 8:55 AM Signed fyi-Patient calls to report that she went to [facility] with chest pain. Transferred to [facility] and Echo was normal. She will have stress test tomorrow. Awaiting COVID-19 test results . Wanted PCP office aware. Reminded to schedule hospital follow up within two weeks of discharge. Lexy ARIAS PA-C 01/23/2020 9:10 AM Signed Noted. Please request ER records. Roxanne Patel MA, MA 01/23/2020 9:32 AM Signed Sent records to [facility]. DARRYN Fritz PA-C 01/24/2020 9:02 AM Signed Patient is scheduled this afternoon for ER Follow up. Basically until I have the ER report and stress test results, theres not much I can do. As we discussed, She is supposed t o be following up with cardiology- has seen whitley qiu as well. Please reschedule her for later this w [place] so we have time to get the [...] insurance there is not [facility] drivers [facility] so waiting o n community [facility] and has no way to get [facility]t for until we [...] (METRONIDAZOLE HCL) 03/11/2010 12 - Shortness of [place] th IBUPROFEN 06/18/2016 8 - GI Upset [...] Erythrocyte distribution 14.1 11.5-15.5 % Normal 01-22 [facility] (RBC) [Ratio] [facility] ([place]) ([id number]) Comment: Performed By: #### CBC, ADIF F, ANEU, BMP, GFR #### [place] [address] Hematocrit (Bld) [Volume 35.6 34.0-46.0 % Normal 01-22 [facility] fraction] ([place]) (0000 0) Comment: Performed By: #### CBC, ADIF F, ANEU, BMP, GFR #### [place] [address] Hemoglobin (Bld) 11.9 12.0-16.0 G/dL Low 01-23-2020 [facility] [Mass/Vol] ([place]) (000 00) Comment: Performed By: #### CBC, ADIF F, ANEU, BMP, GFR #### [place] [id number] MCH (RBC) [Entitic mass] 30.0 27.0-33.0 pg Normal 01-22 [facility] ([place]) (0000 0) Comment: Performed By: #### CBC, ADIF F, ANEU, BMP, GFR #### [address] [address] MCHC (RBC) [Mass/Vol] 33.4 32.0-36.0 G/dL Normal 01-23-20 20 [facility] ([place]) (0000 0) Comment: Performed By: #### CBC, ADIF F, ANEU, BMP, GFR #### [place] [id number] MCV (RBC) [Entitic vol] 89.8 80.0-99.0 fL Normal 2019 [facility] ([place]) (0000 0) Comment: Performed By: #### CBC, ADIF F, ANEU, BMP, GFR #### [address] [address] Platelet mean volume 8.5 6.6-10.5 fL Normal 0 [facility] (Bld) [Entitic vol] ([place]) (74575) Comment: Performed By: #### CBC, ADIF F, ANEU, BMP, GFR #### [address] [address] Platelets (Bld) [#/Vol] 235 150-450 10 3/mcL Normal 2019 [facility] ([place]) (52671) Comment: Performed By: #### CBC, ADIF F, ANEU, BMP, GFR #### [place] [id number] RBC (Bld) [#/Vol] 3.97 4.10-5.30 10 6/mcL Low 01-23-2020 [facility] ([place]) (0000 0) Comment: Performed By: #### CBC, ADIF F, ANEU, BMP, GFR #### [place] [address] WBC (Bld) [#/Vol] 10.20 4.50-10.80 10 3/mcL Normal 01-23-2020 [facility] ([place]) (90385) Comment: Performed By: #### CBC, ADIF F, ANEU, BMP, GFR #### [address] [address] bmp on 2020-01-23 Creatinine [Mass/Vol] 0.94 0.50-1.20 mg/dL Normal 01-23-20 20 [facility] ([place]) ([id number]) Comment: Performed By: #### CBC, ADIF F, ANEU, BMP, GFR #### [place] [address] Urea nitrogen/Creatinine 20.2 10.0-22.0 ratio Normal 01-22 [facility] [Mass ratio] [facility] ([place]) (76757) Comment: Performed By: #### CBC, ADIF F, ANEU, BMP, GFR #### [place] [address] Calcium [Mass/Vol] 9.4 8.4-10.1 mg/dL Normal 01-23-2020 [facility] ([place]) (0000 0) Comment: Performed By: #### CBC, ADIF F, ANEU, BMP, GFR #### [address] [address] Chloride [Moles/Vol] 106 98-110 mEq/L Normal 0 [facility] ([place]) (0000 0) Comment: Performed By: #### CBC, ADIF F, ANEU, BMP, GFR #### [address] [address] CO2 [Moles/Vol] 28 22-32 mEq/L Normal 01-23-2020 [facility] ([place]) (21933) Comment: Performed By: #### CBC, ADIF F, ANEU, BMP, GFR #### [address] [address] Electrolyte Balance 6.0 4.0-15.0 mEq/L Normal 01-23-2020 [facility] ([place]) (0000 0) Comment: Performed By: #### CBC, ADIF F, ANEU, BMP, GFR #### [address] [address] Glucose [Mass/Vol] 91 70-110 mg/dL Normal 01-23-2020 [facility] ([place]) (99698) Comment: Performed By: #### CBC, ADIF F, ANEU, BMP, GFR #### [address] [address] Potassium [Moles/Vol] 4.2 3.5-5.0 mEq/L Normal 01-23-20 20 [facility] ([place]) (0000 0) Comment: Performed By: #### CBC, ADIF F, ANEU, BMP, GFR #### [address] [address] Sodium [Moles/Vol] 140 136-145 mEq/L Normal 01-23-2020 [facility] ([place]) (26370) Comment: Performed By: #### CBC, ADIF F, ANEU, BMP, GFR #### [address] [address] Urea nitrogen [Mass/Vol] 19.0 8.0-22.0 mg/dL Normal 01-22 [facility] ([place]) (53146) Comment: Performed By: #### CBC, ADIF F, ANEU, BMP, GFR #### [address] [address] .morph on 2020-01-13 1 Platelets (Bld) [#/Vol] Normal Normal 2019 [facility] ([place]) (40104) Comment: Result Comment: Few large pl atelets seen. Performed By: #### CBC, ADIF F, ANEU, BMP, GFR #### [place] [address] RBC morphology finding Nom Normal Normal [facility] (Bld) ([place]) (0000 0) Comment: Performed By: #### CBC, ADIF F, ANEU, BMP, GFR #### [place] [address] .manual diff on Basophil %, Manual 0.0 0.0-2.5 % Normal 01-23-2020 [facility] ([place]) (75580) Comment: Performed By: #### CBC, ADIF F, ANEU, BMP, GFR #### [place] [address] Basophil, Abs Manual 0.00 0.00-0.27 10 3/mcL Normal 0 [facility] ([place]) (21414) Comment: Performed By: #### CBC, ADIF F, ANEU, BMP, GFR #### [place] [address] Cells Counted 100 Normal 01-23-2020 [facility] ([place]) ([id number]) Comment: Performed By: #### CBC, ADIF F, ANEU, BMP, GFR #### [address] [address] Eosinophil %, Manual 0.0 0.0-6.0 % Normal 0 [facility] ([place]) (19799) Comment: Performed By: #### CBC, ADIF F, ANEU, BMP, GFR #### [place] [address] Eosinophil, Abs Manual 0.00 0.00-0.65 10 3/mcL Normal 020 [facility] ([place]) (67747) Comment: Performed By: #### CBC, ADIF F, ANEU, BMP, GFR #### [place] [address] Lymphocyte %, Manual 16.0 20.0-40.0 % Low 0 [facility] ([place]) (78796) Comment: Performed By: #### CBC, ADIF F, ANEU, BMP, GFR #### [place] [address] Lymphocyte, Abs Manual 1.63 0.90-4.32 10 3/mcL Normal 020 [facility] ([place]) (08571) Comment: Performed By: #### CBC, ADIF F, ANEU, BMP, GFR #### [place] [address] Monocyte %, Manual 5.0 2.0-13.0 % Normal 01-23-2020 [facility] ([place]) ([id number]) Comment: Performed By: #### CBC, ADIF F, ANEU, BMP, GFR #### [place] [address] Monocyte, Abs Manual 0.51 0.09-1.40 10 3/mcL Normal 0 [facility] ([place]) (74128) Comment: Performed By: #### CBC, ADIF F, ANEU, BMP, GFR #### [place] [address] Neutrophil %, Manual 79.0 50.0-75.0 % High 0 [facility] ([place]) (37039) Comment: Performed By: #### CBC, ADIF F, ANEU, BMP, GFR #### [place] [address] Neutrophil, Abs Manual 8.06 2.25-8.10 10 3/mcL Normal 020 [facility] ([place]) ([id number]) Comment: Performed By: #### CBC, ADIF F, ANEU, BMP, GFR #### [place] [address] .gfr on 2020-01-23 GFR >60 Normal 01-22- 0 [facility] ([place]) (86974) Comment: Result Comment: GFR Population mean for [...] CBC, ADIF F, ANEU, BMP, GFR #### [address] [address] GFR Non- >60 Normal 01-22 [facility] ([place]) (06017) Comment: Result Comment: GFR Population mean for [...] CBC, ADIF F, ANEU, BMP, GFR #### [address] [address] spag on 2020-01-22 SPAG . Normal 01-22-2020 [facility] asa MICRO - Microbiology [facility] ([place]) ([id number]) PROCEDURE: Streptococcus Pneumoniae Urine Antig [^1 *1] [...] Locations *1: This test was performed at: [address], [address] , [place] [facility] Comment: Performed By: #### CBC, ADIF F, ANEU, BMP, GFR #### [place] [address] respid on 2020-01-13 0 Adenovirus Not Detected Not Detected Normal 01-22-2020 [facility] ([place]) (0000 0) Comment: Performed By: #### CBC, ADIF F, ANEU, BMP, GFR #### [place] [address] Bordetella Not Detected Not Detected Normal 01-22-2020 [facility] Parapertussis Founda tion ([place]) (11816) Comment: Performed By: #### CBC, ADIF F, ANEU, BMP, GFR #### [place] [address] Bordetella Pertussis Not Detected Not Detected Normal [facility] ([place]) (14243) Comment: Performed By: #### CBC, ADIF F, ANEU, BMP, GFR #### [place] [address] Chlamydophila Not Detected Not Detected Normal 01-22-2020 [facility] pneumoniae Foundatio n ([place]) (42220) Comment: Performed By: #### CBC, ADIF F, ANEU, BMP, GFR #### [address] [address] Coronavirus 229E Not Detected Not Detected Normal 020 [facility] (90239) Comment: Performed By: #### CBC, ADIF F, ANEU, BMP, GFR #### [address] [address] Coronavirus HKU1 Not Detected Not Detected Normal 020 [facility] (Not COVID-19) [facility] (03729) Comment: Performed By: #### CBC, ADIF F, ANEU, BMP, GFR #### [address] [address] Coronavirus NL63 Not Detected Not Detected Normal 020 [facility] (Not COVID-19) [facility] (80207) Comment: Performed By: #### CBC, ADIF F, ANEU, BMP, GFR #### [address] [address] Coronavirus OC43 Not Detected Not Detected Normal 020 [facility] (Not COVID-19) [facility] (84984) Comment: Performed By: #### CBC, ADIF F, ANEU, BMP, GFR #### [address] [address] Human Metapneumovirus Not Detected Not Detected Normal [facility] ([place]) (56929) Comment: Performed By: #### CBC, ADIF F, ANEU, BMP, GFR #### [address] [address] Influenza A Not Detected Not Detected Normal 01-22-2020 A Pending [facility] to [facility] ([place]) (0000 0) Comment: Performed By: #### CBC, ADIF F, ANEU, BMP, GFR #### [address] [address] Influenza B Not Detected Not Detected Normal 01-22-2020 A Pending sale to [facility] ([place]) (0000 0) Comment: Performed By: #### CBC, ADIF F, ANEU, BMP, GFR #### [facility] [address] [place], [place] [address] Mycoplasma Not Detected Not Detected Normal 01-22-2020 [facility] pneumoniae Foundatio n ([place]) (56985) Comment: Performed By: #### CBC, ADIF F, ANEU, BMP, GFR #### [address] [address] Parainfluenza 1 Not Detected Not Detected Normal 01-22-20 [facility] ([place]) (72304) Comment: Performed By: #### CBC, ADIF F, ANEU, BMP, GFR #### [address] [address] Parainfluenza 2 Not Detected Not Detected Normal 01-22-20 [facility] ([place]) (74559) Comment: Performed By: #### CBC, ADIF F, ANEU, BMP, GFR #### [place] [address] Parainfluenza 3 Not Detected Not Detected Normal 01-22-20 [facility] ([place]) (80821) Comment: Performed By: #### CBC, ADIF F, ANEU, BMP, GFR #### [address] [address] Parainfluenza 4 Not Detected Not Detected Normal 01-22-[address] [place] [address] ([place]) (60516) Comment: Performed By: #### CBC, ADIF F, ANEU, BMP, GFR #### [address] [address] Respiratory Not Detected Not Detected Normal 01-22-2020 [facility] Syncytial Virus Foun dation ([place]) (28354) Comment: Performed By: #### CBC, ADIF F, ANEU, BMP, GFR #### [address] [address] Rhinovirus/Enterovirus Not Detected Not Detected Normal 0 01-22-2020 [facility] ([place]) (10011) Comment: Performed By: #### CBC, ADIF F, ANEU, BMP, GFR #### [address] [address] sonali on 2020-01-22 SONALI . Normal 01-22-2020 [facility] MICRO - Microbiology [facility] ([place]) (32820) PROCEDURE: Legionella Urine Ag [*1] SOURCE: Urine [...] Locations *1: This test was performed at: [address], [address] , [place] Comment: Performed By: #### CBC, ADIF F, ANEU, BMP, GFR #### [address] [address] ldh on 2020-01-22 LDH 194 120-246 U/L Normal 01-22-2020 [facility] ([place]) (62230) Comment: Performed By: #### CBC, ADIF F, ANEU, BMP, GFR #### [address] [address] fib on 2020-01-22 Fibrinogen 414 250-550 mg/dL Normal 01-22-2020 [facility] ([place]) (92468) Comment: Performed By: #### CBC, ADIF F, ANEU, BMP, GFR #### [address] [address] ferr on 2020-01-22 Ferritin [Mass/Vol] 40 8-252 ng/mL Normal 01-22-2020 [facility] ([place]) (49974) Comment: Performed By: #### CBC, ADIF F, ANEU, BMP, GFR #### [address] [address] dimer on 2020-01-22 Fibrin D-dimer FEU IA <200 0-230 ug/mL Normal 01-22-20 20 [facility] (Bld) [Mass/Vol] ([place] ) (30862) Comment: Result Comment: Results repo rted in [...] CBC, ADIF F, ANEU, BMP, GFR #### [facility] [address] [place] [address] ct angiography chest w/contrast on 2020-01-22 CT ANGIOGRAPHY ORIGINAL Normal 01-22-[address] [facility] CHEST W/CONTRAST CT PULMONARY ANGIOGRAM WITH IV CONTRAST: with post-processing, volume rendering and 3-D acquisitions. This exam was performed according to our departmental dose optimization program, and includes the [facility] ([place]) llowing measures where appli cable: automated exposure control, adjustment of the mAs and/or kVp according to patient size and/or exam, and an iterative reconstruction algorithm. Patient received 13 hour (29241) contrast allergy preparation. CLINICAL STATEMENT: elevated d [...] Erythrocyte distribution 13.7 11.5-15.5 % Normal 01-21 [facility] (RBC) [Ratio] [facility] ([place]) (52004) Comment: Performed By: #### CBC, ADIF F, ANEU, BMP, GFR #### [address] [address] Hematocrit (Bld) [Volume 36.0 34.0-46.0 % Normal 01-21 [facility] fraction] ([place]) (0000 0) Comment: Performed By: #### CBC, ADIF F, ANEU, BMP, GFR #### [address] [address] Hemoglobin (Bld) 11.9 12.0-16.0 G/dL Low 01-22-2020 [facility] [Mass/Vol] ([place]) (000 00) Comment: Performed By: #### CBC, ADIF F, ANEU, BMP, GFR #### [address] [address] MCH (RBC) [Entitic mass] 29.6 27.0-33.0 pg Normal 01-21 [facility] ([place]) (0000 0) Comment: Performed By: #### CBC, ADIF F, ANEU, BMP, GFR #### [address] [address] MCHC (RBC) [Mass/Vol] 33.0 32.0-36.0 G/dL Normal 01-22-20 20 [facility] ([place]) (0000 0) Comment: Performed By: #### CBC, ADIF F, ANEU, BMP, GFR #### [address] [address] MCV (RBC) [Entitic vol] 89.8 80.0-99.0 fL Normal 2019 [facility] ([place]) (0000 0) Comment: Performed By: #### CBC, ADIF F, ANEU, BMP, GFR #### [address] [address] Platelet mean volume 8.6 6.6-10.5 fL Normal 0 [facility] (d) [Entitic vol] ([place]) (63545) Comment: Performed By: #### CBC, ADIF F, ANEU, BMP, GFR #### [place] [id number] Platelets (Bld) [#/Vol] 269 150-450 10 3/mcL Normal 2019 [facility] ([place]) (57227) Comment: Performed By: #### CBC, ADIF F, ANEU, BMP, GFR #### [address] [address] RBC (Bld) [#/Vol] 4.01 4.10-5.30 10 6/mcL Low 01-22-2020 [facility] ([place]) (0000 0) Comment: Performed By: #### CBC, ADIF F, ANEU, BMP, GFR #### [place] [id number] WBC (Bld) [#/Vol] 12.20 4.50-10.80 10 3/mcL High 01-22-2020 [facility] ([place]) (0000 0) Comment: Performed By: #### CBC, ADIF F, ANEU, BMP, GFR #### [address] [address] bmp on 2020-01-22 Calcium [Mass/Vol] 9.5 8.4-10.1 mg/dL Normal 01-22-2020 [facility] ([place]) (0000 0) Comment: Performed By: #### CBC, ADIF F, ANEU, BMP, GFR #### [address] [address] Chloride [Moles/Vol] 106 98-110 mEq/L Normal 0 [facility] ([place]) (0000 0) Comment: Performed By: #### CBC, ADIF F, ANEU, BMP, GFR #### [address] [address] CO2 [Moles/Vol] 24 22-32 mEq/L Normal 01-22-2020 [facility]) (14862) Comment: Performed By: #### CBC, ADIF F, ANEU, BMP, GFR #### [address] [address] Creatinine [Mass/Vol] 0.76 0.50-1.20 mg/dL Normal 01-22-20 20 [facility] ([place]) (85145) Comment: Performed By: #### CBC, ADIF F, ANEU, BMP, GFR #### [address] [address] Electrolyte Balance 6.0 4.0-15.0 mEq/L Normal 01-22-2020 [facility]) (0000 0) Comment: Performed By: #### CBC, ADIF F, ANEU, BMP, GFR #### [address] [address] Glucose [Mass/Vol] 149 70-110 mg/dL High 01-22-2020 [facility] ([place]) (38771) Comment: Performed By: #### CBC, ADIF F, ANEU, BMP, GFR #### [address] [address] Potassium [Moles/Vol] 4.1 3.5-5.0 mEq/L Normal 01-22-20 20 [facility] ([place]) (0000 0) Comment: Performed By: #### CBC, ADIF F, ANEU, BMP, GFR #### [address] [address] Sodium [Moles/Vol] 136 136-145 mEq/L Normal 01-22-2020 [facility] ([place]) (88261) Comment: Performed By: #### CBC, ADIF F, ANEU, BMP, GFR #### [address] [address] Urea nitrogen [Mass/Vol] 12.0 8.0-22.0 mg/dL Normal 01-21 [facility] ([place]) (44270) Comment: Performed By: #### CBC, ADIF F, ANEU, BMP, GFR #### [address] [address] Urea nitrogen/Creatinine 15.8 10.0-22.0 ratio Normal 01-21 [facility] [Mass ratio] [facility] ([place]) (25823) Comment: Performed By: #### CBC, ADIF F, ANEU, BMP, GFR #### [address] [address] .neuabs on Neutrophils (Bld) 10.70 2.25-8.10 10 3/mcL High 01-22-2020 [facility] [#/Vol] [facility] ([place]) (27905) Comment: Performed By: #### CBC, ADIF F, ANEU, BMP, GFR #### [address] [address] .gfr on 2020-01-22 GFR Non- >60 Normal 01-21 [facility] ([place]) (64366) Comment: Result Comment: GFR Population mean for [...] CBC, ADIF F, ANEU, BMP, GFR #### [address] [address] GFR >60 Normal 0 [facility] ([place]) (02378) Comment: Result Comment: GFR Population mean for [...] CBC, ADIF F, ANEU, BMP, GFR #### [address] [address] .auto diff on 01-21 Ammonia (P) [Mass/Vol] 0.30 0.09-1.40 10 3/mcL Normal 020 [facility] ([place]) (67276) Comment: Performed By: #### CBC, ADIF F, ANEU, BMP, GFR #### [address] [address] Basophils (Bld) 0.00 0.00-0.27 10 3/mcL Normal 01-22-2020 [facility] [#/Vol] [facility] ([place]) (20476) Comment: Performed By: #### CBC, ADIF F, ANEU, BMP, GFR #### [address] [address] Basophils/100 WBC (Bld) 0.3 0.0-2.5 % Normal 2019 [facility] ([place]) (0000 0) Comment: Performed By: #### CBC, ADIF F, ANEU, BMP, GFR #### [address] [address] Eosinophils (Bld) 0.00 0.00-0.65 10 3/mcL Normal 01-22-2020 [facility] [#/Vol] [facility] ([place]) (99274) Comment: Performed By: #### CBC, ADIF F, ANEU, BMP, GFR #### [address] [address] Eosinophils/100 WBC (Bld) 0.1 0.0-6.0 % Normal 01-12 0-2019 [facility] ([place]) (0000 0) Comment: Performed By: #### CBC, ADIF F, ANEU, BMP, GFR #### [address] [address] Lymphocytes (Bld) 1.10 0.90-4.32 10 3/mcL Normal 01-22-2020 A [facility] [#/Vol] [facility] ([place]) (32432) Comment: Performed By: #### CBC, ADIF F, ANEU, BMP, GFR #### [address] [address] Lymphocytes/100 WBC (Bld) 9.3 20.0-40.0 % Low - 0-2019 [facility] ([place]) (0000 0) Comment: Performed By: #### CBC, ADIF F, ANEU, BMP, GFR #### [address] [address] Monocytes/100 WBC (Bld) 2.2 2.0-13.0 % Normal 2019 [facility] ([place]) (0000 0) Comment: Performed By: #### CBC, ADIF F, ANEU, BMP, GFR #### [address] [address] Neutrophils/100 WBC (Bld) 88.1 50.0-75.0 % High - 0-2019 [facility] ([place]) (0000 0) Comment: Performed By: #### CBC, ADIF F, ANEU, BMP, GFR #### [address] [address] urinalysis with microscopy on 2020-01-21 Amorphous NONE Normal 01-21-2020 [facility] (70652) Comment: Performed By: #### [id number] ## ## [facility],[address] [place] [address]479 Bacteria LM.HPF (Urine sed) 3+ Normal [facility] [/Area] [facility] ( 54051) Comment: Performed By: #### [id number] ## ## [facility],[address] [place] [address] Bilirubin [Mass/Vol] NEG NORMAL: NEGATIVE mg/dL Normal [facility] ospital (86043) Comment: Performed By: #### [id number] ## ## [facility],[address] [place] [address] Blood 10 NORMAL: NEGATIVE Abnormal 01-21-2020 [facility] (94839) Comment: Performed By: #### [id number] ## ## [facility],[address] [place] [address]17[address] Casts LM.LPF (Urine sed) NONE Normal 01-20 [facility] [#/Area] [facility] ( 93043) Comment: Performed By: #### [id number] ## ## [facility],[address] [place] [address] Clarity (U) sl.cloudy NORMAL: CLEAR Normal 01-21-2020 [facility] ( 10832) Comment: Performed By: #### [id number] ## ## [facility],[address] [place] [address] Color (U) p.yel NORMAL: YELLOW Normal 01-21-2020 [facility] (85943) Comment: Performed By: #### [id number] ## ## [facility],[address] [place] [address] 34915 Crystals LM Nom (Urine sed) NONE Normal [facility] ( 96427) Comment: Performed By: #### [id number] ## ## [facility],[address] [place] [address] 44416 Epi Cells MANY Normal 01-21-2020 [facility] (89787) Comment: Performed By: #### [id number] ## ## [facility],[address] [place] [address] Glucose [Mass/Vol] NORM NORMAL: NORMAL Normal 2019 [facility] ( 53444) Comment: Performed By: #### [id number] ## ## [facility],[address] [place] [address] Ketone NEG NORMAL: NEGATIVE Normal 01-21-2020 [facility] (20432) Comment: Performed By: #### [id number] ## ## [facility],[address] [place] [address] Mucous NONE Normal 01-21-2020 [facility] (33642) Comment: Performed By: #### [id number] ## ## [facility],[address] [place] [address]228 Nitrite Ql (U) NEG NORMAL: NEGATIVE Normal 01-21-20 [facility] ( 08853) Comment: Performed By: #### [id number] ## ## [facility],[address] [place] [address] 51855 pH (Bld) 5 NORMAL: 5.0-8.0 Normal 01-21-2020 [facility] (55539) Comment: Performed By: #### [id number] ## ## [facility],[address] [place] [address] 19756 Protein (U) NEG NORMAL: NEGATIVE mg/dL Normal 01-21-2020 [facility] [Mass/Vol] [facility] (70465) Comment: Performed By: #### [id number] ## ## [facility],[address] [place] [address] Rbc 0-5 0-3 / hpf Normal 01-21-2020 [facility] (80924) Comment: Performed By: #### [id number] ## ## [facility] [place] [address]2684 Sp [place] 1.020 NORMAL: 1.010-1.030 Normal 0 [facility] ( 83440) Comment: Performed By: #### [id number] ## ## [facility],[address] [place] [address] 38592 Specimen type Nom (Spec) UNSPECIFIED Normal [facility] ( 88933) Comment: Performed By: #### [id number] ## ## [facility],[address] [place] [address]551 URINALYSIS WITH MICROSCOPY Normal [facility] (52324) Comment: Result Comment: URINALYSIS Performed By: #### [id number] ## ## [facility],[address] [place] [address]19 Urobilinog NORM NORMAL: NORMAL Normal 01-21-2020 [facility] (26428) Comment: Performed By: #### [id number] ## ## [facility],[address] [place] [address]231 Wbc 1-5 0-5 / hpf Normal 01-21-2020 [facility] (55438) Comment: Performed By: #### [id number] ## ## [facility],[address] [place] [address]57 WBC (Bld) [#/Vol] NEG NORMAL: NEGATIVE 10*3/uL Normal 01-20 [facility] osp[facility] (68391) Comment: Result Comment: URINE MICROS COPIC Performed By: #### [id number] ## ## [facility],[address] [place] [address] 85470 Yeast LM Ql (Urine sed) NONE Normal 2019 [facility] (25490) Comment: Performed By: #### [id number] ## ## [facility],[address] [place] [address] 67784 troponin on 2020-01 Troponin I.cardiac <0.01 0.00 - 0.05 ng/mL Normal 0 [facility] [Mass/Vol] [facility] (34799) Comment: Result Comment: Elevated tro ponin (above [...] as heterophile antibodi es). Performed By: #### [id number] ## ## [facility],[address] [place] [address] 18563 tropi on 2020-01-21 Troponin I.cardiac <0.015 0.000-0.040 ng/mL Normal 0 [facility] [Mass/Vol] [facility] ([place] (06860) Comment: Result Comment: Troponin I r eference ranges (05/22/14): 0.00-0.040 ng/mL Negative an d non-diagnostic. >0.040 ng/mL Consistent with cardiac damage, increased clinical risk and possibility of myocardial in farction. Serial measurements, a rise & fall in test results, clinical histo ry, appropriate symptoms and/or ECG changes may help assess possibility of MT. *Other non-acute coronary sy ndrome conditions such as CHF, myoc arditis, pulmonary emboli, sepsis and cardiac surgery could result in myoc ardial damage and increased troponi n levels. Performed By: #### TROPI ### # [facility] [address] [place] [address] serum qual on 2020-01-21 EXTERNAL QC DONE? YES Normal 01-21-2020 [facility] (34684) Comment: Performed By: #### [id number] ## ## [facility],[address] [place] [address]48[address] INTERNAL QC PASS Normal 01-21-2020 [facility] (09073) Comment: Performed By: #### [id number] ## ## [facility],[address] [facility] [address] SER NEGATIVE NEGATIVE Normal 01-21-2020 [facility] (87588) Comment: Performed By: #### [id number] ## ## [facility],[address] [facility] [address] d-dimer, quantitative on 2020-01-21 D-DIMER QUANT 256 0 - 230 ng/ml High 01-21-2020 [facility] (40986) Comment: Performed By: #### [id number] ## ## [facility],[address] [place] [address] D-DIMER, QUANTITATIVE Normal 01-21-20 20 [facility] (71033) Comment: Result Comment: QUANT D-DIME R Performed By: #### [id number] ## ## [facility],[address] [place] [address] brain w/o contrast on 2020-01-21 CT BRAIN W/O [facility] Normal 0 [facility] ospital [address] [place] [address] (55843) Patient: SALLY VARGAS Phone#: : 1980 Age: 39 Gender: F Pt. Type: ER Account: [id number] Location: [facility] Ordering: DR. ANA RODRIGUEZ Exam Date: 01/20/2020/23:41 Family Phys: ISABEL ARIAS Charge Code: [id number] Physician: [place] Order #: [id number] DLP Dose#: [id number] PROCEDURE: CT BRAIN WITHOUT CONTRAST COMPARISON: [facility], CT, BRAIN W/O CON, 01/29/2017, 22:39. INDICATIONS: Dizziness. TECHNIQUE: CT images were obtained without contrast material . [facility] use dose modulation, iterative reconstruction, [...] 39 Gender: F Pt. Type: ER Account: [id number] Location: [facility] Ordering: DR. ANA RODRIGUEZ Exam Date: 01/20/2020/23:41 Family Phys: ISABEL ARIAS Charge Code: [id number] Physician: [place] Order #: [id number] DLP Dose#: [id number] Approved by: Kelsey Mae MD on 01/21/2020 at 18:04 cmp with egfr on 31-01-09 Age - Reported 39 years Normal 01-21-2020 [facility] (22417) Comment: Performed By: #### [id number] ## ## [facility],[address] [place] [address]8713 Albumin [Mass/Vol] 4.3 3.4 - 4.8 g/dL Normal 01-21-2020 [facility] ( 57056) Comment: Performed By: #### [id number] ## ## [facility],[address] [place] [address] 54458 Albumin/Globulin [Mass 1.5 0.9 - 1.6 {ratio} Normal 020 [facility]] [facility] ospital (03505) Comment: Performed By: #### [id number] ## ## [facility],[address] [place] [address]10 ALK PHOS 71 38 - 126 U/L Normal 01-21-2020 [facility] (61811) Comment: Performed By: #### [id number] ## ## [facility],[address] [place] [address] 44708 ALT/SGPT 11 8 - 35 U/L Normal 01-21-2020 [facility] (41746) Comment: Performed By: #### [id number] ## ## [facility],[address] [place] [address] 25564 Anion gap [Moles/Vol] 12 10 - 20 mmol/L Normal 01-21-20 20 [facility] ( 67311) Comment: Performed By: #### [id number] ## ## [facility],[address] [place] [address] 85635 AST/SGOT 12 13 - 39 U/L Low 01-21-2020 [facility] (73673) Comment: Performed By: #### [id number] ## ## [facility],[address] [place] [address] 52368 B/C RATIO 19 0 - 30 ratio Normal 01-21-2020 [facility] (50963) Comment: Performed By: #### [id number] ## ## [facility],[address] [place] [address] 27467 Bilirubin [Mass/Vol] 0.3 0.0 - 1.5 mg/dl Normal 0 [facility] ( 85333) Comment: Performed By: #### [id number] ## ## [facility],[address] [place] [address] 45951 Calcium [Mass/Vol] 9.2 8.6 - 10.2 mg/dl Normal 01-21-2020 [facility] ( 37951) Comment: Performed By: #### [id number] ## ## [facility],[address] [place] [address] 12758 Chloride [Moles/Vol] 102 98 - 107 mmol/L Normal 0 [facility] ( 86709) Comment: Performed By: #### [id number] ## ## [facility],[address] [place] [address] 56426 CO2 [Moles/Vol] 25.6 21.0 - 31.0 mmol/L Normal 01-21-2020 [facility] ( 91571) Comment: Performed By: #### [id number] ## ## [facility],[address] [place] [address] 84516 Creatinine [Mass/Vol] 1.1 0.6 - 1.2 mg/dl Normal 01-21-20 20 [facility] ( 58357) Comment: Performed By: #### [id number] ## ## [facility],[address] [place] [address] 67521 GFR/1.73 sq M >60 60 - 999 mL/min/{1.73_m2} Normal 0 [facility] among [facility] non-blacks MDRD (000 00) (S/P/Bld) [Vol rate/Area] [...] OF AGE AND OLDER. Performed By: #### [id number] ## ## [facility],[address] [place] [address] 36098 GFR/1.73 sq M predicted 55 60 - 999 ML/MINUTE Low 2019 [facility] non-blacks MDRD Hospital (04148) (S/P/Bld) [Vol rate/Area] Comment: Performed By: #### [id number] ## ## [facility],[address] [place] [address] 98373 GFR/1.73 sq M predicted among Normal 01-21-2020 [facility] non-blacks MDRD (S/P/Bld) [Vol Hospital (82888) rate/Area] Comment: Result Comment: COMPREHENSIV E METABOLIC PANEL Performed By: #### [id number] ## ## [facility],[address] [place] [address] 34726 Globulin (S) [Mass/Vol] 2.9 1.5 - 3.8 G/DL Normal 2019 [facility] ( 04582) Comment: Performed By: #### [id number] ## ## [facility],[address] [place] [address] 86075 Glucose [Mass/Vol] 100 74 - 106 mg/dl Normal 01-21-2020 [facility] ( 54771) Comment: Performed By: #### [id number] ## ## [facility],[address] [place] [address] [place] [address] Potassium [Moles/Vol] 3.6 3.5 - 5.1 mmol/L Normal 01-21-20 20 [facility] ( 21156) Comment: Performed By: #### [id number] ## ## [facility],[address] [place] [address] [place] [address] Protein [Mass/Vol] 7.2 6.4 - 8.3 g/dl Normal 01-21-2020 [facility] ( 54125) Comment: Performed By: #### 134108 ## ## [facility],[address] [place] [address] [place] [address] Sodium [Moles/Vol] 136 136 - 145 mmol/l Normal 01-21-2020 [facility] ( 84548) Comment: Performed By: #### [id number] ## ## [facility],[address] [place] [address] [place] [address] Urea nitrogen [Mass/Vol] 21 6 - 20 mg/dl High 01-20 [facility] ( 56707) Comment: Performed By: #### [id number] ## ## [facility],981 [facility] [address] chest 2 views on 31-01-09 CHEST 2 VIEWS [facility] Normal 01-21-20 [facility] [address] [place], [place] [address] (81040) Patient: SALLY VARGAS Phone#: : 1980 Age: 39 Gender: F Pt. Type: ER Account: [id number] Location: [facility] Ordering: DR. ANA RODRIGUEZ Exam Date: 01/20/2020/23:45 Family Phys: ISABEL ARIAS Charge Code: [id number] Physician: [place] Order #: [id number] DLP Dose#: PROCEDURE: X-RAY CHEST 2 VIEWS COMPARISON: [facility], XR, CHEST 2 VIEWS, 11/25/2019, [...] distribution 13.6 11.5-15.5 % Normal 01-20 [facility] width (RBC) [Ratio] [facility] ([place]) (27847) Comment: Performed By: #### CBC, ADIF F, ANEU, BMP, GFR #### [facility] [address] [place] [address]32 Hematocrit (Bld) [Volume 35.6 34.0-46.0 % Normal 01-20 [facility] fraction] ([place]) (0000 0) Comment: Performed By: #### CBC, ADIF F, ANEU, BMP, GFR #### [place] [address] Hemoglobin (Bld) 11.4 12.0-16.0 G/dL Low 01-21-2020 [facility] [Mass/Vol] ([place]) (000 00) Comment: Performed By: #### CBC, ADIF F, ANEU, BMP, GFR #### [place] [address] MCH (RBC) [Entitic mass] 29.5 27.0-33.0 pg Normal 01-20 [facility] ([place]) (0000 0) Comment: Performed By: #### CBC, ADIF F, ANEU, BMP, GFR #### [place] [address] MCHC (RBC) [Mass/Vol] 32.2 32.0-36.0 G/dL Normal 01-21-20 20 [facility] ([place]) (0000 0) Comment: Performed By: #### CBC, ADIF F, ANEU, BMP, GFR #### [place] [address] MCV (RBC) [Entitic vol] 91.7 80.0-99.0 fL Normal 2019 [facility] ([place]) (0000 0) Comment: Performed By: #### CBC, ADIF F, ANEU, BMP, GFR #### [place] [address] Platelet mean volume 8.6 6.6-10.5 fL Normal 0 [facility] (Bld) [Entitic vol] ([place]) (88158) Comment: Performed By: #### CBC, ADIF F, ANEU, BMP, GFR #### [place] [id number] Platelets (Bld) [#/Vol] 250 150-450 10 3/mcL Normal 2019 [facility] ([place]) (16369) Comment: Performed By: #### CBC, ADIF F, ANEU, BMP, GFR #### [address] [address] RBC (Bld) [#/Vol] 3.88 4.10-5.30 10 6/mcL Low 01-21-2020 A [facility] ([place]) (0000 0) Comment: Performed By: #### CBC, ADIF F, ANEU, BMP, GFR #### [address] [address] WBC (Bld) [#/Vol] 6.20 4.50-10.80 10 3/mcL Normal 01-21-2020 [facility] ([place]) (59909) Comment: Performed By: #### CBC, ADIF F, ANEU, BMP, GFR #### [address] [address] cbc + diff on 01-20 Basophils (Bld) 0.10 0.00 - 0.10 x10EE3/UL Normal 01-21-2020 [facility] [#/Vol] [facility] (12665) Comment: Performed By: #### [id number] ## ## [facility],[address] [place] [address] 44184 Basophils/100 WBC (Bld) 1.1 0.0 - 2.0 % Normal 2019 [facility] ( 15177) Comment: Performed By: #### [id number] ## ## [facility],[address] [place] [address] 17421 CBC + DIFF Normal 01-21-2020 [facility] (45736) Comment: Result Comment: CBC-COMPLETE BLOOD COUNT Performed By: #### [id number] ## ## [facility],[address] [place] [address] 69455 Eosinophils (Bld) 0.40 0.00 - 0.50 x10EE3/UL Normal 01-21-2020 [facility] [#/Vol] [facility] (54529[facility] Comment: Performed By: #### [id number] ## ## [facility],[address] [place] [address] 18701 Eosinophils/100 WBC (Bld) 5.5 0.0 - 7.0 % Normal 0 [facility] ( 23830) Comment: Performed By: #### [id number] ## ## [facility],[address] [place] [address] 19934 Erythrocyte distribution 13.5 12.0 - 15.6 % Normal [facility] width (RBC) [Ratio] Hospital (24537) Comment: Performed By: #### [id number] ## ## [facility],[address] [place] [address] Hematocrit (Bld) [Volume 33.8 34.0 - 46.0 % Low [facility] fraction] [facility] ( 74997) Comment: Performed By: #### [id number] ## ## [facility],[address] [place] [address] 26808 Hemoglobin (Bld) 11.7 12.0 - 16.0 g/dl Low 01-21-2020 [facility] [Mass/Vol] [facility] (27583) Comment: Performed By: #### [id number] ## ## [facility],[address] [place] [address] 10157 Lymphocytes (Bld) 2.30 0.80 - 2.80 x10EE3/UL Normal 01-21-2020 [facility] [#/Vol] [facility] ospital (18787) Comment: Performed By: #### [id number] ## ## [facility],[address] [place] [address] 33297 Lymphocytes/100 WBC (Bld) 30.4 20.0 - 45.0 % Normal [facility] ( 67751) Comment: Performed By: #### [id number] ## ## [facility],[address] [place] [address] 75915 MANUAL DIFF N/A Normal 01-21-2020 [facility] (13585) Comment: Performed By: #### [id number] ## ## [facility],[address] [place] [address] 09764 MCH (RBC) [Entitic mass] 31 27 - 33 pg Normal 01-20 [facility] ( 65787) Comment: Performed By: #### [id number] ## ## [facility],[address] [place] [address] 91256 MCHC (RBC) [Mass/Vol] 35 32 - 36 X10 3 Normal 01-21-20 20 [facility] ( 99637) Comment: Performed By: #### [id number] ## ## [facility],[address] [place] [address] 31185 MCV (RBC) [Entitic vol] 88 80 - 99 fl Normal 2019 [facility] ( 67504) Comment: Performed By: #### [id number] ## ## [facility],[address] [place] [address] 57727 Monocytes (Bld) 0.50 0.20 - 1.00 x10EE3/UL Normal 01-21-2020 [facility] [#/Vol] [facility] ([address]69) Comment: Performed By: #### [id number] ## ## [facility],[address] [place] [address] 66651 MONOS % 6.5 0.0 - 10.0 % Normal 01-21-2020 [facility] (22529) Comment: Performed By: #### [id number] ## ## [facility],[address] [place] [address] 01826 Morphology Adrian (Bld) [Interp] N/A Normal 01-21-2020 [facility] ( 57319) Comment: Performed By: #### [id number] ## ## [address] [address] Neutrophils (Bld) 4.30 1.50 - 7.10 x10EE3/UL Normal 01-21-2020 [facility] [#/Vol] [facility] (86954[facility] Comment: Performed By: #### [id number] ## ## [facility],[address] [place] [address] 72243 Neutrophils/100 WBC (Bld) 56.5 46.0 - 76.0 % Normal [facility] ( 16355) Comment: Performed By: #### [id number] ## ## [facility],[address] [place] [address] 83774 Platelet mean volume 8.3 6.6 - 10.5 fl Normal 01-21-20 [facility] (Bld) [Entitic vol] [facility] (00706) Comment: Result Comment: AUTOMATED DI FFERENTIAL Performed By: #### [id number] ## ## [facility],[address] [place] [address] 31952 Platelets (Bld) 298 150 - 450 x10EE3/UL Normal 01-21-2020 [facility] [#/Vol] [facility] (59011) Comment: Performed By: #### [id number] ## ## [facility],[address] [place] [address] 08944 RBC (Bld) [#/Vol] 3.82 4.10 - 5.30 x 10EE6/UL Low 0 [facility] ( 69213) Comment: Performed By: #### [id number] ## ## [facility],[address] [place] [address] 38423 WBC (Bld) [#/Vol] 7.6 4.5 - 10.8 x 10EE3/UL Normal 01-21-2020 [facility] ( 48367) Comment: Performed By: #### [id number] ## ## [facility],[address] [place] [address] 15871 bmp on 2020-01-21 Creatinine [Mass/Vol] 0.96 0.50-1.20 mg/dL Normal 01-21-20 20 [facility] ([place]) (28744) Comment: Performed By: #### CBC, ADIF F, ANEU, BMP, GFR #### [address] [address] Urea nitrogen/Creatinine 18.8 10.0-22.0 ratio Normal 01-20 [facility] [Mass ratio] [facility] ([place]) (74466) Comment: Performed By: #### CBC, ADIF F, ANEU, BMP, GFR #### [address] [address] Calcium [Mass/Vol] 8.7 8.4-10.1 mg/dL Normal 01-21-2020 [facility] ([place]) (0000 0) Comment: Performed By: #### CBC, ADIF F, ANEU, BMP, GFR #### [address] [address] Chloride [Moles/Vol] 108 98-110 mEq/L Normal 0 [facility] ([place]) (0000 0) Comment: Performed By: #### CBC, ADIF F, ANEU, BMP, GFR #### [address] [address] CO2 [Moles/Vol] 26 22-32 mEq/L Normal 01-21-2020 [facility] ([place]) (32530) Comment: Performed By: #### CBC, ADIF F, ANEU, BMP, GFR #### [address] [address] Electrolyte Balance 4.0 4.0-15.0 mEq/L Normal 01-21-2020 [facility] ([place]) (0000 0) Comment: Performed By: #### CBC, ADIF F, ANEU, BMP, GFR #### [address] [address] Glucose [Mass/Vol] 85 70-110 mg/dL Normal 01-21-2020 [facility] ([place] (27109) Comment: Performed By: #### CBC, ADIF F, ANEU, BMP, GFR #### [address] [address] Potassium [Moles/Vol] 4.1 3.5-5.0 mEq/L Normal 01-21-20 20 [facility] ([place]) (0000 0) Comment: Performed By: #### CBC, ADIF F, ANEU, BMP, GFR #### [address] [address] Sodium [Moles/Vol] 138 136-145 mEq/L Normal 01-21-2020 [facility] ([place]) (77265) Comment: Performed By: #### CBC, ADIF F, ANEU, BMP, GFR #### [address] [address] Urea nitrogen [Mass/Vol] 18.0 8.0-22.0 mg/dL Normal 01-20 [facility] ([place] (41811) Comment: Performed By: #### CBC, ADIF F, ANEU, BMP, GFR #### [address] [address] .neuabs on Neutrophils (Bld) 3.50 2.25-8.10 10 3/mcL Normal 01-21-2020 [facility] [#/Vol] [facility] ([place]) (73552) Comment: Performed By: #### CBC, ADIF F, ANEU, BMP, GFR #### [address] [address] .gfr on 2020-01-21 GFR Non- >60 Normal 01-20 [facility] ([place]) (45869) Comment: Result Comment: GFR Population mean for [...] CBC, ADIF F, ANEU, BMP, GFR #### [address] [address] GFR >60 Normal 0 [facility] ([place]) (49833) Comment: Result Comment: GFR Population mean for [...] CBC, ADIF F, ANEU, BMP, GFR #### [place] [address] .auto diff on 01-20 Ammonia (P) [Mass/Vol] 0.40 0.09-1.40 10 3/mcL Normal 020 [facility] ([place]) (35217) Comment: Performed By: #### CBC, ADIF F, ANEU, BMP, GFR #### [place] [address] Basophils (Bld) 0.00 0.00-0.27 10 3/mcL Normal 01-21-2020 [facility] [#/Vol] [facility] ([place]) (04920) Comment: Performed By: #### CBC, ADIF F, ANEU, BMP, GFR #### [address] [address] Basophils/100 WBC (Bld) 0.5 0.0-2.5 % Normal 2019 [facility] ([place]) (0000 0) Comment: Performed By: #### CBC, ADIF F, ANEU, BMP, GFR #### [address] [address] Eosinophils (Bld) 0.30 0.00-0.65 10 3/mcL Normal 01-21-2020 [facility] [#/Vol] [facility] ([place] (12397) Comment: Performed By: #### CBC, ADIF F, ANEU, BMP, GFR #### [address] [address] Eosinophils/100 WBC (Bld) 5.4 0.0-6.0 % Normal 05-0 -2019 [facility] ([place]) (0000 0) Comment: Performed By: #### CBC, ADIF F, ANEU, BMP, GFR #### [address] [address] Lymphocytes (Bld) 2.00 0.90-4.32 10 3/mcL Normal 01-21-2020 [facility] [#/Vol] [facility] ([place] (91570) Comment: Performed By: #### CBC, ADIF F, ANEU, BMP, GFR #### [address] [address] Lymphocytes/100 WBC (Bld) 32.4 20.0-40.0 % Normal - [facility] ([place]) (71328) Comment: Performed By: #### CBC, ADIF F, ANEU, BMP, GFR #### [address] [address] Monocytes/100 WBC (Bld) 6.1 2.0-13.0 % Normal 2019 [facility] ([place]) (0000 0) Comment: Performed By: #### CBC, ADIF F, ANEU, BMP, GFR #### [address] [address] Neutrophils/100 WBC (Bld) 55.6 50.0-75.0 % Normal 05-0 [facility] ([place]) (50735) Comment: Performed By: #### CBC, ADIF F, ANEU, BMP, GFR #### [address] [address] cnpn on 2020-01-20 CNPN Telephone (FAMPWS) Normal 01-20-2020 [facility] ABDIFATAHSALLY TORRES ([id number]) 1980 [facility] [place] Date Time Provider Department (22715) 01/20/20 MARCELINO MEJIA During your visit today, we recorded the following informati on about you: Christopher Carcamo RN 01/20/2020 11:54 AM Signed Patient asking if Chaz Stroud, would sent AB Rx to [facility], for her bad tooth? Her dentist in [place] is not open. Has an appt with a dentist in [place] on . Has a wound on tongue [...] rx to pat[place]. Asked for directions to [facility] for her ultrasound appt, gave [...] 01/20/20 progress on 2020-01 PROGRESS HNO ID: [id number] Normal 01-16-2020 Author: Isabel Romero) Hugo Lara ([id number]) Service: ? Author Type: Physician Quality Control Operator Type: Progress Notes Filed: 01/16/2020 1:43 PM [...] She c/o of daily. Attempted to call [facility] who had 1 visit with [...] negative As noted in HPI PHYSICAL EXAMINATION: [facility] 08/10/2006 Deferred physical exam as visit [...] testing. Recommend that she discuss with her pan shaker. In mean time will order stress testing [...] patient = 21-30 minutes cnpn on 2020-01-16 [facility]) Normal 01-16-2020 [facility] SALLY VARGAS ([id number]) 1980 [facility] [place] Date Time Provider Department (28458) 01/16/20 [facility] During your visit today, we recorded the following informati on about you: Slalie Benitez LPN 01/16/2020 1:47 PM Addendum Sallie Benitez LPN 01/16/2020 1:47 PM Addendum Allergies As of Date: 01/16/2020 Noted Allergy Reaction ASA (SALICYLATES) 01/27/2011 14 - Other: See Comments Comments: ulcers CONTRAST DYE (IODINE) 05/17/2008 12 - Shortness of Breath FLAGYL (METRONIDAZOLE HCL) 03/11/2010 12 - Shortness of [place] th IBUPROFEN 06/18/2016 8 - GI Upset [...] on 01/16/20 CNPN Telephone (FAMPWS) Normal 01-16-2020 [facility] SALLY VARGAS ([id number]) 1980 [place] Date Time Provider Department (95972) 01/16/20 [facility] During your visit today, we recorded [...] and/or ibuprofen for pain. Follow-up with her [facility] care physician within the next 3 [...] Chest pain This note was generated with [employer] dictation software. It m ay contain incorrect [...] on 2020-01-11 CNPN Telephone (FAMWS) Normal 01-11-2020 [facility] SALLY VARGAS ([id number]) 1980 [facility] [place] Date Time Provider Department ([id number]) 01/11/20 [facility] During your visit today, we recorded [...] (METRONIDAZOLE HCL) 03/11/2010 12 - Shortness of [place] th IBUPROFEN 06/18/2016 8 - GI Upset PENICILLINS 12/07/2009 2 - Rash PREDNISONE 06/18/2016 14 - Other: See Comments Comments: makes agitated and mean Date Reviewed: 01/02/2020 Reviewed by: Ashley Lehman Ma - Fully Assessed Reason for Visit: Patient Question [7557] Reason For Visit History Recorded Prescriptions as [...] on 2020-01-09 CNPN Telephone (FAMPWS) Normal 01-09-2020 [place] SALLY [id number]) 1980 [facility] [place] Date Time Provider Department (66399) 01/09/20 ISABEL ARIAS) RAMA During your visit [...] when taken with s eroquel 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 See if she is willing to try this combination of vitam ins until she sees Dr. Saldana. Magnesium 250MG twice a day Vit B2 200mg twice a day. Fish oil 1000mg twice a day And a liter of water daily. This combination is something dr. mejia and I recommend to a lot of our headache/migraine sufferers and has had good results from [facility]. MAYA Delgado Ma 01/09/2020 11:49 AM [...] Encounter Status:Closed by ISABEL WARE on 01/09/20 [facility] Normal 01-09-2020 [place] SALLY Martinez ([id number]) 1980 [facility] [place] Date Time Provider Department (05403) 01/09/20 [facility] During your visit today, we recorded [...] flexeril. Patien t says she cannot take [place] because she is on ok Seroquel and [...] dentist and she said no dentist in [facility] can see her because of her insurance . She tried [place] because they accepted her insurance but they [...] by ER or UC, then at [facility] they can see/check for signs of worsening [...] she has called every dentist office in [place] and now [place] and no one takes her insurance. She said she called her insurance and they told her the only one was the one in [place]. I told her if her infection is that bad she needs to go back to ER for further evaluation. Patient then just keep saying I have no way of getting there; no family can take her; she has no money to pay to get there. Patient ended call. I did call Dr. Evans's office oral surgeon [phone] and they are open from 8-3 after [...] * * *Final Report* * * Normal AP/LAT DATE OF EXAM: Jan 06 2020 12:58PM [place] ([id number]) WOX 5262 - XR THORACIC 2V AP/LAT [...] delon destructive process. IMPRESSION: Negative thoracic spine. Licensed Club Manager: [facility] Transcribe Date/Time: Jan 06 2020 1:02P Dictated by : NIDA VILLALOBOS MD This examination was interpreted and the report reviewed and electronically signed by: NIDA VILLALOBOS MD on Jan 06 2020 1:07PM EST [id number] xr cervical 3v ap/lat/odon on 2020-01-06 XR CERVICAL 3V * * *Final Report* * * Normal AP/LAT/ODON DATE OF EXAM: Jan 06 2020 12:58PM [place] WOX 5309 - XR CERVICAL 3V AP/LAT/ODON / 3 (40302) PROCEDURE REASON: Fall, initial encounter * * [...] tissues are normal. IMPRESSION: Negative cervical spine. Licensed Club Manager: [facility] Transcribe Date/Time: Jan 06 2020 1:00P Dictated by : NIDA VILLALOBOS MD This examination was interpreted and the report reviewed and electronically signed by: NIDA VILLALOBOS MD on Jan 06 2020 1:04PM EST [id number] progress on 2019-12 PROGRESS HNO ID: [id number] Normal 01-06-2020 Author: Vianey Sanchez (Tech) [place] ([id number]) Service: ? Author Type: Pocketbook Maker Type: Progress Notes Filed: 01/06/2020 12:58 PM [...] on 2020-01-06 CNPN Telephone (ASHIAWS) Normal 01-06-2020 [facility] SALLY VARGAS ([id number]) 1980 [facility] [place] Date Time Provider Department (83301) 01/06/20 MARCELINO MEJIAWS During your visit today, we recorded the following informati on about you: Deepa Salvador LPN, DAVID 01/06/2020 11:41 AM Signed Pt calls states fell a day ago and went to [facility] they gave h er 10 vicodin, 20 [...] encounter [W19.XXXA] Order(s):XR THORACIC LIMITED 2V AP/LAT [[id number]] Order #: [id number] FUTURE XR CERV INJURY 3V AP/LAT/ODON [[id number]] Order #: [id number] FUTURE Prescriptions as of 01/06/2020 Sig: SERTRALINE [...] on 01/06/20 CNPN Telephone (FAMWS) Normal 01-06-2020 [facility] SALLY VARGAS ([id number]) 1980 [facility] Time Provider Department ([id number]) 01/06/20 MARCELINO MEJIA During your visit today, [...] 01/06/20 progress on 2019-12 PROGRESS HNO ID: [id number] Normal 01-05-2020 Author: Isabel Romero) Hugo [facility]ara ([id number]) Service: ? Author Type: Physician Quality Control Operator Type: Progress Notes Filed: 01/05/2020 8:07 AM [...] to cancel due to no r kostas. [facility] has appointment rescheduled on january 19. States [...] minutes progress on 2019-12 PROGRESS HNO ID: [id number] Normal 01-02-2020 Author: Marie Mary) [facility] ([id number]) Service: ? Author Type: Nurse Practitioner Type: [...] Benign liver cyst 05/24/2010 CT scan at [facility] 11/2009 and 04/2010 showe 4 mm increase in size . No pain. No elevated LFTs on 03/11/2010. - Calculus of kidney 05/17/[address] Nicolas: Hospitalized age 20, and again later -- no procedures so far ([facility], [facility], 1995 [facility]) - Dysmenorrhea - Impaired fasting glucose 05/17/2008 [...] Approx. 3 cigarettes daily-1 pack every w [place] Substance Use Topics - Alcohol use: Yes [...] 2020-01-02 CNOV Office Visit (UCWSTR) Normal 01-02-20 [place] SALLY Martinez ([id number]) 1980 [facility] [place] Date Time Provider Department ([id number]) 01/02/20 2:45 PM MARIE PINEDO (MANUELITO) WSTR [...] Benign liver cyst 05/24/2010 CT scan at [facility] 11/2009 and 04/2010 showe 4 mm increase in size . No pain. No elevated LFTs on 03/11/2010. - Calculus of kidney 05/17/[address] Nicolas: Hospitalized age 20, a nd again later -- no procedures so far ([facility], [facility], 1995 [facility]) - Dysmenorrhea - Impaired fasting glucose 05/17/2008 [...] Approx. 3 cigarettes daily-1 pack every w [place] Substance Use Topics - Alcohol use: Yes [...] MG CAPSULE Agrees to plan Marie Pinedo APRN.CARRIAGE SETTER Referring Provider: SELF [200] Allergies As of [...] PINEDO CNP on 01/02/20 cnpn on 2019-12-23 [facility]) Normal 12-23-2019 [facility] SALLY VARGAS ([id number]) 1980 [place] Date Time Provider Department (28074) 12/23/19 ISABEL ARIAS) RAMA During your visit [...] not helping cough. Please advise and call [phone]. [facility] ISABEL ARIAS PA-C 12/23/2019 1:02 PM [...] * *Final Report* * * Normal 12-21 FRONTAL/LAT DATE OF EXAM: Dec 22 2019 9:28AM [place] WOX 5291 - XR CHEST 2V FRONTAL/LAT / (43476) PROCEDURE REASON: multiple diagnoses * * * [...] clips noted. IMPRESSION: No acute radiographic abnormality. Licensed Club Manager: [facility] Transcribe Date/Time: Dec 22 2019 9:29A Dictated by : NIDA VILLALOBOS MD This examination was interpreted and the report reviewed and electronically signed by: NIDA VILLALOBOS MD on Dec 22 2019 9:51AM EST [id number] progress on 2019-12 PROGRESS HNO ID: [id number] Normal 12-22-2019 Author: Vianey Roman (Rt) [place] ([id number]) Service: ? Author Type: Pocketbook Maker Type: Progress Notes Filed: 12/22/2019 9:28 AM [...] 22, 2019 9:18 AM cnpn on 2019-12-22 [facility] (FAMPWS) Normal 12-22-2019 [facility] SALLY VARGAS ([id number]) 1980 [facility] Time Provider Department (81706) 12/22/19 [facility] During your visit today, we recorded the following informati on about you: ISABEL ARIAS PA-C 12/22/2019 9:56 AM Signed Let patient know that xray is negative. Recommend cont inuing as we discussed yesterday. MAYA Delgado Management Tech 12/22/2019 10:42 AM Signed Patient notified and verbalized understanding Ashley Mcfarland Management Tech Allergies As of Date: 12/22/2019 Noted Allergy [...] 12/22/19 progress on 2019-12 PROGRESS HNO ID: [id number] Normal 12-21-2019 Author: Isabel Romero) Hugo Lara ([id number]) Service: ? Author Type: Physician Quality Control Operator Type: Progress Notes Filed: 12/21/2019 12:48 PM [...] on 2019-12-15 CNPN Telephone (FAMPWS) Normal 12-15-2019 [facility] SALLY VARGAS ([id number]) 1980 [facility] [place] Date Time Provider Department (78438) 12/15/19 ISABEL ARIAS) [facility] During your visit today, we recorded the following informati on about you: Melanie Swenson DIRECTOR OF RESIDENCE LIFE 12/15/2019 11:15 AM Signed Patient calling every time takes the [place] zonatate she gets nauseated, asking if could have zofran or phenergan rx? Patient said the pe rles help she does not cough, she tries eating first and still makes her nauseated. Patient uses [facility] for her pharmacy. Please advise ISABEL ARIAS [...] Status:Closed by MILKA VILLARREAL MA on 12/15/19 [facility] 2019-[facility]-14 [facility] (INTMWS) Normal 12-14-2019 [facility] SALLY VARGAS ([id number]) 1980 [facility] [place] Date Time Provider Department (17582) 12/14/19 ISABEL ARIAS (MAYA) INTMWS During your visit today, we recorded the following informati on about you: Gale Fuentes LPN 12/14/2019 10:15 AM Signed Patient took 1 dose of Robitussin AC, di d help suppress cough but developed an itchy/rash. Asking if [facility]. [facility] uses [facility] Please notify Patient. [...] on 12/14/19 CNPN Telephone (FAMPWS) Normal 12-14-2019 [facility] SALLY VARGAS ([id number]) 1980 [facility] [place] Date Time Provider Department (53859) 12/14/19 ISABEL ARIAS) RAMA During your visit [...] (METRONIDAZOLE HCL) 03/11/2010 12 - Shortness of [place] th IBUPROFEN 06/18/2016 8 - GI Upset [...] 12/14/19 progress on 2019-11 PROGRESS HNO ID: [id number] Normal 12-13-2019 Author: Isabel (PaRex) Hugo Lara ([id number]) Service: ? Author Type: Physician Quality Control Operator Type: Progress Notes Filed: 12/13/2019 10:36 AM [...] Benign liver cyst 05/24/2010 CT scan at [facility] 11/2009 and 04/2010 showe 4 mm increase in size . No pain. No elevated LFTs on 03/11/2010. - Calculus of kidney 05/17/[address] Nicolas: Hospitalized age 20, and again later -- no procedures so far ([facility], [facility], [facility]) - Dysmenorrhea - Impaired fasting glucose 05/17/2008 [...] Approx. 3 cigarettes daily-1 pack every w [place] Substance Use Topics - Alcohol use: Yes [...] (COVID-19). emergency report on 2019-11-26 EMERGENCY REPORT [facility] Normal 11-25 [facility] EMERGENCY ROOM REPORT ([id number]) NAME ACCOUNT SEX AGE ADMIT DISCHARGE PT MED. RECORD# NUMBER DATE DATE HIEU VARGAS [id number] Donato 39 11/24/19 11/25/19 [place] ZHENG [id number] ROOM: ER DATE OF : 1980 DICTATING [...] review of her constipation regimen at [facility]. She verbalized understanding of the informa tion given and agreed to plan. She was discharged in stable condition. Dictated By: Ana Rodriguez MD 11/25/19 05:37 JOB #: [id number] Transcribed By: nallely 11/25/19 22:11 Electronically signed by: Jennifer Perez MD 11/25/19 22:39 Page 2 of 2 SALLY VARGAS Emergency Room Report urinalysis with microscopy on 2019-11-25 Amorphous NONE Normal 11-25-2019 [facility] (73874) Comment: Performed By: #### [id number] ## ## [facility],[address] [place] [address] 51126 Bacteria LM.HPF (Urine sed) 4+ Normal [facility] [#/Area] [facility] ( 57352) Comment: Performed By: #### [id number] ## ## [facility],[address] [place] [address] 87202 Bilirubin [Mass/Vol] NEG NORMAL: NEGATIVE mg/dL Normal [facility]spital (32784) Comment: Performed By: #### [id number] ## ## [facility],[address] [place] [address] 90147 Blood 10 NORMAL: NEGATIVE Abnormal 11-25-2019 [facility] (32076) Comment: Performed By: #### [id number] ## ## [facility],[address] [place] [address] 83757 Casts LM.LPF (Urine sed) NONE Normal 11-24 [facility] [/Area] [facility] ( 21130) Comment: Performed By: #### [id number] ## ## [facility],[address] [place] [address] 72964 Clarity (U) sl.cloudy NORMAL: CLEAR Normal 11-25-2019 [facility] ( 84116) Comment: Performed By: #### [id number] ## ## [facility],[address] [place] [address] 91688 Color (U) p.yel NORMAL: YELLOW Normal 11-25-2019 [facility] (03616) Comment: Performed By: #### [id number] ## ## [facility],[address] [place] [address] 89805 Crystals LM Nom (Urine sed) NONE Normal [facility] ( 93720) Comment: Performed By: #### [id number] ## ## [facility],[address] [place] [address] 66315 Epi Cells MANY Normal 11-25-2019 [facility] (03129) Comment: Performed By: #### [id number] ## ## [facility],[address] [place] [address] 63468 Glucose [Mass/Vol] NORM NORMAL: NORMAL Normal 2019 [facility] ( 16322) Comment: Performed By: #### [id number] ## ## [facility],[address] [place] [address] 15052 Ketone NEG NORMAL: NEGATIVE Normal 11-25-2019 [facility] (79148) Comment: Performed By: #### [id number] ## ## [facility],[address] [place] [address] 82831 Mucous NONE Normal 11-25-2019 [facility] (93238) Comment: Performed By: #### [id number] ## ## [facility],[address] [place] [address] 87866 Nitrite Ql (U) NEG NORMAL: NEGATIVE Normal 11-25-19 20 [facility] ( 41082) Comment: Performed By: #### [id number] ## ## [facility],[address] [place] [address] 18196 pH (Bld) 5 NORMAL: 5.0-8.0 Normal 11-25-2019 [facility] (30513) Comment: Performed By: #### [id number] ## ## [facility],[address] [place] [address] 87678 Protein (U) NEG NORMAL: NEGATIVE mg/dL Normal 11-25-2019 [facility] [Mass/Vol] [facility] (59544) Comment: Performed By: #### [id number] ## ## [facility],[address] [place] [address] 51274 Rbc 0-5 0-3 / hpf Normal 11-25-2019 [facility] (47362) Comment: Performed By: #### [id number] ## ## [facility],[address] [place] [address] 73881 Sp [place] 1.010 NORMAL: 1.010-1.030 Normal 0 [facility] ( 05771) Comment: Performed By: #### [id number] ## ## [facility],[address] [place] [address] 38429 Specimen type Nom (Spec) UNSPECIFIED Normal [facility] ( 99271) Comment: Performed By: #### [id number] ## ## [facility] [place] [address]648 URINALYSIS WITH MICROSCOPY Normal [facility] (88729) Comment: Result Comment: URINALYSIS Performed By: #### [id number] ## ## [facility],981 [facility] [address] Urobilinog NORM NORMAL: NORMAL Normal 11-25-2019 [facility] (74822) Comment: Performed By: #### [id number] ## ## [facility],981 [facility] [address]6977 Wbc 1-5 0-5 / hpf Normal 11-25-2019 [facility] (72720) Comment: Performed By: #### [id number] ## ## [facility],[address] [place] [address] 22887 WBC (Bld) [#/Vol] 25 NORMAL: NEGATIVE Abnormal 11-24 [facility] ( 48936) Comment: Result Comment: URINE MICROS COPIC Performed By: #### [id number] ## ## [facility],[address] [place] [address] 16196 Yeast LM Ql (Urine sed) NONE Normal 2019 [facility] (67070) Comment: Performed By: #### [id number] ## ## [facility],[address] [place] [address] 41573 lipase on 2019-11-13 3 Lipase [Catalytic 34.0 18.0 - 51.0 U/L Normal 11-25-2019 [facility] activity/Vol] [facility] (50229) Comment: Performed By: #### [id number] ## ## [facility],[address] [place] [address] 91796 lactate on Lactate [Moles/Vol] 0.9 0.5 - 2.0 mmol/L Normal 11-25-2019 [facility] ( 70124) Comment: Performed By: #### [id number] ## ## [facility],[address] [place] [address] abdomen/pelvis wo on 2019-11-25 CT ABDOMEN/PELVIS [facility] Normal 0 11-25-2019 [facility]spital [address] [place] [address] ([id number]) Patient: SALLY VARGAS Phone#: : 1980 Age: 39 Gender: F Pt. Type: ER Account: [id number] Location: 2 Ordering: DR. ANA RODRIGUEZ Exam Date: 11/25/2019/0:04 Family Phys: ISABEL ARIAS Charge Code: 979164 Physician: [place] Order #: [id number] DLP Dose#: PROCEDURE: CT ABDOMEN/PELVIS WITHOUT CONTRAST [...] 39 Gender: F Pt. Type: ER Account: [id number] Location: 052 Ordering: DR. ANA RODRIGUEZ Exam Date: 11/25/2019/0:04 Family Phys: ISABEL ARIAS Charge Code: [id number] Physician: [place] Order #: [id number] DLP Dose#: ABDOMINAL WALL: There is a [...] on 11/25/2019 at 10:46 cnpn on 2019-11-[facility]) Normal 11-25-2019 [facility] SALLY VARGAS ([id number]) 1980 [facility] Time Provider Department (76684) 11/25/19 [facility]AY ARIAS) [facility] During your visit today, we recorded [...] Age - Reported 39 years Normal 11-25-2019 [facility] (25203) Comment: Performed By: #### [id number] ## ## [address] [address] Albumin [Mass/Vol] 4.5 3.4 - 4.8 g/dL Normal 11-25-2019 [facility] ( 08572) Comment: Performed By: #### [id number] ## ## [facility],[address] [place] [address] 35222 Albumin/Globulin [Mass 1.3 0.9 - 1.6 {ratio} Normal 020 [facility]] [facility] (69939) Comment: Performed By: #### [id number] ## ## [facility],981 [facility] [address] ALK PHOS 93 38 - 126 U/L Normal 11-25-2019 [facility] (61115) Comment: Performed By: #### [id number] ## ## [facility],981 [facility] [address] ALT/SGPT 10 8 - 35 U/L Normal 11-25-2019 [facility] (30082) Comment: Performed By: #### [id number] ## ## [facility],1 [facility] [address] Anion gap [Moles/Vol] 13 10 - 20 mmol/L Normal 11-25-19 20 [facility] ( 53012) Comment: Performed By: #### [id number] ## ## [facility],981 [facility] [address] AST/SGOT 9 13 - 39 U/L Low 11-25-2019 [facility] (33411) Comment: Performed By: #### [id number] ## ## [facility],[address] [place] [address] 09520 B/C RATIO 17 0 - 30 ratio Normal 11-25-2019 [facility] (20750) Comment: Performed By: #### [id number] ## ## [facility],981 [facility] [address] Bilirubin [Mass/Vol] 0.4 0.0 - 1.5 mg/dl Normal 0 [facility] ( 16687) Comment: Performed By: #### [id number] ## ## [facility],[address],[place] [address] Calcium [Mass/Vol] 9.9 8.6 - 10.2 mg/dl Normal 11-25-2019 [facility] ( 81395) Comment: Performed By: #### [id number] ## ## [facility],981 [facility] [address] Chloride [Moles/Vol] 103 98 - 107 mmol/L Normal 0 [facility] ( 67419) Comment: Performed By: #### [id number] ## ## [facility],981 [facility] [address]409 CO2 [Moles/Vol] 24.9 21.0 - 31.0 mmol/L Normal 11-25-2019 [facility] ( 69369) Comment: Performed By: #### [id number] ## ## [facility],[address] [place] [address] 79923 Creatinine [Mass/Vol] 1.0 0.6 - 1.2 mg/dl Normal 11-25-19 20 [facility] ( 39283) Comment: Performed By: #### [id number] ## ## [facility],[address] [place] [address] 97056 GFR/1.73 sq M predicted among Normal 11-25-2019 [facility] non-blacks MDRD (S/P/Bld) [Vol Hospital (56081) rate/Area] Comment: Result Comment: COMPREHENSIV E METABOLIC PANEL Performed By: #### [id number] ## ## [facility],[address] [place] [address] 88433 GFR/1.73 sq M >60 60 - 999 mL/min/{1.73_m2} Normal 0 [facility] predicted among [facility] non-blacks MDRD (000 00) (S/P/Bld) [Vol rate/Area] Comment: Performed By: #### [id number] ## ## [facility],[address] [place] [address] 75624 Result Comment: ACCORDING TO THE NATIONAL KIDNEY [...] 3.5 1.5 - 3.8 G/DL Normal 2019 [facility] ( 05133) Comment: Performed By: #### [id number] ## ## [facility],[address] [place] [address] 42178 Glucose [Mass/Vol] 123 74 - 106 mg/dl High 11-25-2019 [facility] (05005) Comment: Performed By: #### [id number] ## ## [facility],[address] [place] [address] 70929 Potassium [Moles/Vol] 3.6 3.5 - 5.1 mmol/L Normal 11-25-19 [facility] ( 91162) Comment: Performed By: #### [id number] ## ## [facility],[address] [place] [address] [place] [address] Protein [Mass/Vol] 8.0 6.4 - 8.3 g/dl Normal 11-25-2019 [facility] ( 67659) Comment: Performed By: #### [id number] ## ## [facility],[address] [place] [address] 55080 Sodium [Moles/Vol] 137 136 - 145 mmol/l Normal 11-25-2019 [facility] ( 54374) Comment: Performed By: #### [id number] ## ## [facility],[address] [place] [address] 22027 Urea nitrogen [Mass/Vol] 17 6 - 20 mg/dl Normal 11-24 [facility] ( 34999) Comment: Performed By: #### [id number] ## ## [facility],[address] [place], [place] [id number] chest 2 views on 20 01-12-12 CHEST 2 VIEWS [facility] Normal 11-25-19 [facility]sp[facility] [address] [place] [address] (65744) Patient: ASLLY VARGAS Phone#: : 1980 Age: 39 Gender: F Pt. Type: ER Account: [id number] Location: [facility] Ordering: DR. ANA RODRIGUEZ Exam Date: 11/25/2019/0:08 Family Phys: ISABEL ARIAS Charge Code: [id number] Physician: [place] Order #: [id number] DLP Dose#: PROCEDURE: X-RAY CHEST 2 VIEWS [...] on 11-24 CELL COUNT 100 Normal 11-25-2019 [facility] (86822) Comment: Performed By: #### [id number] ## ## [facility],[address] [place], [place] [id number] EO 1.0 0.0 - 4.0 % Normal 11-25-2019 [facility] (30582) Comment: Performed By: #### [id number] ## ## [facility],[address] [place] [address] SEGS 59 50 - 70 % Normal 11-25-2019 [facility] (78504) Comment: Performed By: #### [id number] ## ## [facility],[address] [place] [address] 34786 CBC + DIFF Normal 11-25-2019 [facility] (75651) Comment: Result Comment: CBC-COMPLETE BLOOD COUNT Performed By: #### [id number] ## ## [facility],[address] [place] [address] 47650 Erythrocyte distribution 13.4 12.0 - 15.6 % Normal [facility] (RBC) [Ratio] Hospital (37944) Comment: Performed By: #### [id number] ## ## [facility],[address] [place] [address] 78248 Hematocrit (Bld) [Volume 32.5 34.0 - 46.0 % Low [facility] fraction] [facility] ( 64970) Comment: Performed By: #### [id number] ## ## [facility],[address] [place] [address] 56802 Hemoglobin (Bld) 11.4 12.0 - 16.0 g/dl Low 11-25-2019 [facility] [Mass/Vol] [facility] (04755) Comment: Performed By: #### [id number] ## ## [facility],[address] [place] [address] 26293 Lymphocytes/100 WBC (Bld) 40 20 - 40 % Normal 11-12 [facility] ( 46301) Comment: Performed By: #### [id number] ## ## [facility],[address] [place] [address] 26293 MANUAL DIFF SEE BELOW Normal 11-25-2019 [facility] (86080) Comment: Performed By: #### [id number] ## ## [facility],[address] [place] [address] 88463 MCH (RBC) [Entitic mass] 31 27 - 33 pg Normal 11-24 [facility] ( 58212) Comment: Performed By: #### [id number] ## ## [facility],[address] [place] [address] 45791 MCHC (RBC) [Mass/Vol] 35 32 - 36 X10 3 Normal 11-25-19 20 [facility] ( 46680) Comment: Performed By: #### [id number] ## ## [facility],[address] [place] [address] 45454 MCV (RBC) [Entitic vol] 88 80 - 99 fl Normal 2019 [facility] ( 73716) Comment: Performed By: #### [id number] ## ## [facility],[address] [place] [address] 93506 Morphology Adrian (Bld) REVIEWED Normal 0 [facility] [Inter] [facility] ( 84293) Comment: Performed By: #### [id number] ## ## [facility],[address] [place] [address] 36055 Platelet mean volume 9.1 6.6 - 10.5 fl Normal 11-25-[address] [facility] ([facility]) [Entitic vol] [facility] (07394) Comment: Result Comment: AUTOMATED DI FFERENTIAL Performed By: #### [id number] ## ## [facility],[address] [place] [address] 77928 Platelets (Bld) 268 150 - 450 x10EE3/UL Normal 11-25-2019 [facility] [#/Vol] [facility] (66563) Comment: Performed By: #### [id number] ## ## [facility],[address] [place] [address] 24475 RBC (Bld) [#/Vol] 3.69 4.10 - 5.30 x 10EE6/UL Low 0 [facility] ( 11990) Comment: Performed By: #### [id number] ## ## [facility],981 [facility] [address] WBC (Bld) [#/Vol] 11.4 4.5 - 10.8 x 10EE3/UL High 11-25-2019 [facility] ( 13485) Comment: Performed By: #### [id number] ## ## [facility],981 [facility] [address] tsh on 2019-11-24 TSH Qn 3.920 0.270-4.200 uU/mL Normal 11-24-2019 [facility] (97912) Comment: Result Comment: If the patie nt [...] By: #### TSH, CBCD IF, CMP #### [facility] [address] [place] [address] troponin t on 11-23 Troponin T.cardiac Test sent to 0.000-0.029 Normal 2019 [Mass/Vol] [facility] (30761) [facility]. Comment: Result Comment: Account Cred ited HIDE progress on 2019-11 PROGRESS HNO ID: [id number] Normal 11-24-2019 Author: Jay) Hugo Lara ([id number]) Service: ? Author Type: Physician Quality Control Operator Type: Progress Notes Filed: 11/24/2019 9:33 AM [...] Benign liver cyst 05/24/2010 CT scan at [facility] 11/2009 and 04/2010 showe 4 mm increase in size . No pain. No elevated LFTs on 03/11/2010. - Calculus of kidney 05/17/[address] Nicolas: Hospitalized age 20, and again later -- no procedures so far ([facility], [facility], 1995 [facility]) - Dysmenorrhea - Impaired fasting glucose 05/17/2008 [...] Approx. 3 cigarettes daily-1 pack every w [place] Substance Use Topics - Alcohol use: Yes [...] dimer on D dimer Test sent to Mary[place] <500 Normal 0 [facility]. (98988) Comment: Result Comment: Account Cred ited HIDE comp metabolic panel on 2019-11-24 Albumin [Mass/Vol] 4.4 3.9-4.9 g/dL Normal 11-24-2019 [facility] (52563) Comment: Performed By: #### TSH, CBCD IF, CMP #### [facility] [address] [place], [place] [id number] ALP [Catalytic activity/Vol] 105 34-123 U/L Normal 0 11-24-2019 [facility] (80107) Comment: Performed By: #### TSH, CBCD IF, CMP #### [facility] [address] [place], [place] [address] ALT [Catalytic activity/Vol] 6 7-38 U/L Low 0 11-24-2019 [facility] (72688) Comment: Performed By: #### TSH, CBCD IF, CMP #### [facility] [address] [place], [place] [address] Anion gap [Moles/Vol] 12 9-18 mmol/L Normal 11-24-19 20 [facility] (05638) Comment: Performed By: #### TSH, CBCD IF, CMP #### [facility] [address] [place], [place] [address] AST [Catalytic activity/Vol] 14 13-35 U/L Normal 0 11-24-2019 [facility] (99846) Comment: Performed By: #### TSH, CBCD IF, CMP #### [facility] [address] [place], [place] [address] Bilirubin [Mass/Vol] 0.4 0.2-1.3 mg/dL Normal 0 [facility] (01134) Comment: Performed By: #### TSH, CBCD IF, CMP #### [facility] [address] [place], [place] [address] Calcium [Mass/Vol] 9.9 8.5-10.2 mg/dL Normal 11-24-2019 [facility] (52398) Comment: Performed By: #### TSH, CBCD IF, CMP #### [facility] [address] [place], [place] [address] Chloride [Moles/Vol] 101 97-105 mmol/L Normal 0 [facility] (15981) Comment: Performed By: #### TSH, CBCD IF, CMP #### [facility] [address] [place], [place] [address] CO2 [Moles/Vol] 23 22-30 mmol/L Normal 11-24-2019 [facility] (55574) Comment: Performed By: #### TSH, CBCD IF, CMP #### [facility] [address] [place], [place] [address] Creatinine [Mass/Vol] 0.93 0.58-0.96 mg/dL Normal 11-24-19 20 [facility] (54857) Comment: Performed By: #### TSH, CBCD IF, CMP #### [facility] [address] [place], [place] [address] eGFR- Amer. >60 Normal 11-24-2019 [facility] (75123) Comment: Performed By: #### TSH, CBCD IF, CMP #### [facility] [address] [place], [place] [address] GFR/1.73 sq M predicted >60 mL/min/{1.73_m2} Normal 11-24-2019 among non-blacks MDRD [place] (51509) (S/P/Bld) [Vol rate/Area] Comment: Result Comment: eGFR [...] By: #### TSH, CBCD IF, CMP #### [facility] [address], [place] [address] Glucose [Mass/Vol] 98 74-99 mg/dL Normal 11-24-2019 [facility] (77680) Comment: Result Comment: The [place] [employer] [...] for diagnosis of diabetes. Reference: Standards of [facility] Care in Diabetes 2016, [place] [employer]. Diabetes Care. 2016.39(Suppl 1). Performed By: #### TSH, CBCD IF, CMP #### [facility] [address] [place], [place] [address] Potassium [Moles/Vol] 4.1 3.7-5.1 mmol/L Normal 11-24-19 [facility] (78618) Comment: Performed By: #### TSH, CBCD IF, CMP #### [facility] [address] [place], [place] [address] Protein [Mass/Vol] 7.6 6.3-8.0 g/dL Normal 11-24-2019 [facility] (20918) Comment: Performed By: #### TSH, CBCD IF, CMP #### [facility] [address] [place], [place] [address] Sodium [Moles/Vol] 136 136-144 mmol/L Normal 11-24-2019 [facility] (37241) Comment: Performed By: #### TSH, CBCD IF, CMP #### [facility] [address] [place], [place] [address] Urea nitrogen [Mass/Vol] 21 7-21 mg/dL Normal 11-23 [facility] (37595) Comment: Performed By: #### TSH, CBCD IF, CMP #### [facility] [address] [place], [place] [address] cnpn on 2019-11-24 [facility] Normal 11-24-2019 [facility] SALLY VARGAS ([id number]) 1980 [facility] [place] Date Time Provider Department (72241) 11/24/19 M[facility]INO [facility] During your visit today, we recorded the following informati on about you: Yvette Taylor RN 11/24/2019 12:00 PM Signed Aidee from [facility] lab called, verified pt by name and [...] (METRONIDAZOLE HCL) 03/11/2010 12 - [place] of [place] th IBUPROFEN 06/18/2016 8 - GI Upset [...] on 11/24/19 CNPN Telephone (FAMWS) Normal 11-24-2019 [place] SALLY Martinez ([id number]) 1980 [place] Date Time Provider Department (81181) 11/24/19 [facility]IA [facility] During your visit today, we recorded [...] Status:Closed by VALENTE BRUCE MA on 11/24/19 [facility] Telephone (FAMPWS) Normal 11-24-2019 [place] SALLY Martinez ([id number]) 1980 [facility] [place] Date Time Provider Department (98368) 11/24/19 JAY AIRAS) ASHIAWS During your visit today, we recorded the following informati on about you: Lorenzo Vu 11/24/2019 12:40 PM Signed 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 If so please fax to [employer] fax [phone]. ISABEL ARIAS PA-C 11/24/2019 1:00 PM Signed [...] (FAMPWS) Normal 11-24-19 [facility] SALLY VARGAS ([id number]) 1980 [place] Date Time Provider Department (77309) 11/24/19 9:20 AM JAY ARIAS) RAMA During [...] Benign liver cyst 05/24/2010 CT scan at [facility] 11/2009 and 04/2010 showe 4 mm increase in size . No pain. No elevated LFTs on 03/11/2010. - Calculus of kidney 05/17/[address] Nicolas: Hospitalized age 20, a nd again later -- no procedures so far ([facility], [facility], 1995 [facility]) - Dysmenorrhea - Impaired fasting glucose 05/17/2008 [...] Approx. 3 cigarettes daily-1 pack every w [place] Substance Use Topics - Alcohol use: Yes [...] (METRONIDAZOLE HCL) 03/11/2010 12 - [place]ness of [place] th IBUPROFEN 06/18/2016 8 - GI Upset [...] Order(s):CONSULT TO [facility] [[id number]] Order #: [id number]: 1 levoFLOXacin (LEVAQUIN) 500 mg tabletTake 1 [...] Abs Baso 0.06 <0.11 k/uL Normal 11-24-2019 [facility] (03329) Comment: Performed By: #### TSH, CBCD IF, CMP #### [facility] [address] [place], [place] [address] Abs [place] 0.43 <0.87 k/uL Normal 11-24-2019 [facility] (47705) Comment: Performed By: #### TSH, CBCD IF, CMP #### [facility] [address] [place], [place] [address] Abs Neut 5.59 1.45-7.50 k/uL Normal 11-24-2019 [facility] (99052) Comment: Performed By: #### TSH, CBCD IF, CMP #### [facility] [address] [place], [place] [address] Absolute nRBC <0.01 <0.01 Normal 11-24-2019 [facility] (37854) Comment: Performed By: #### TSH, CBCD IF, CMP #### [facility] [address] [place], [place] [address] Basophils/100 WBC (Bld) 0.7 % Normal 2019 [facility] (68443) Comment: Performed By: #### TSH, CBCD IF, CMP #### [facility] [address] [place] [address] DTYPE Auto Diff Normal 11-24-2019 [facility] (51031) Comment: Performed By: #### TSH, CBCD IF, CMP #### [place] [address] Eosinophils (Bld) [#/Vol] 0.34 <0.46 k/uL Normal 11-12 [facility] (77787) Comment: Performed By: #### TSH, CBCD IF, CMP #### [facility] [address] [place], [place] [address] Eosinophils/100 WBC (Bld) 3.7 % Normal 11-12 [facility] (10377) Comment: Performed By: #### TSH, CBCD IF, CMP #### [facility] [address] [place] [address] Erythrocyte distribution 13.1 11.5-15.0 % Normal 11-23 width (RBC) [Ratio] [place] (27494) Comment: Performed By: #### TSH, CBCD IF, CMP #### [facility] [address] [place], [place] [address] Hematocrit (Bld) [Volume 38.1 36.0-46.0 % Normal 11-23 fraction] [place] (06509) Comment: Performed By: #### TSH, CBCD IF, CMP #### [facility] [address] [place], [place] [address] Hemoglobin (Bld) 11.7 11.5-15.5 g/dL Normal 11-24-2019 [facility] [Mass/Vol] [place] (45103) Comment: Performed By: #### TSH, CBCD IF, CMP #### Labor[facility]ie [facility] [address] [place] [address] Lymphocytes (Bld) [#/Vol] 2.69 1.00-4.00 k/uL Normal 11-12 [facility] (08890) Comment: Performed By: #### TSH, CBCD IF, CMP #### [facility] [address] [place] [address] Lymphocytes/100 WBC (Bld) 29.5 % Normal 11-12 [facility] (41001) Comment: Performed By: #### TSH, CBCD IF, CMP #### Laboratorie s [facility] [place], [place] [address] MCH (RBC) [Entitic mass] 29.3 26.0-34.0 pG Normal 11-23 [facility] (25810) Comment: Performed By: #### TSH, CBCD IF, CMP #### Laboratorie s [facility] [place] [address] MCHC (RBC) [Mass/Vol] 30.7 30.5-36.0 g/dL Normal 11-24-19 20 [facility] (43385) Comment: Performed By: #### TSH, CBCD IF, CMP #### [facility] [address] [place] [address] MCV (RBC) [Entitic vol] 95.3 80.0-100.0 fL Normal 11-23 [facility] (36335) Comment: Performed By: #### TSH, CBCD IF, CMP #### [facility] [address] [place], [place] [address] Monocytes/100 WBC (Bld) 4.7 % Normal 2019 [facility] (32184) Comment: Performed By: #### TSH, CBCD IF, CMP #### [facility] [address] [place], [place] [address] Neutrophils/100 WBC (Bld) 61.4 % Normal 11-12 [facility] (25767) Comment: Result Comment: Differential confirmed by visual scan of peripheral blood smear slide. Performed By: #### TSH, CBCD IF, CMP #### [facility] [address] [place] [address] NRBCs 0.0 0 /100 WBC Normal 11-24-2019 [facility] (27717) Comment: Performed By: #### TSH, CBCD IF, CMP #### [facility] [address] [place] [address] Platelet mean volume 11.4 9.0-12.7 fL Normal 0 (d) [Entitic vol] [place] (25754) Comment: Performed By: #### TSH, CBCD IF, CMP #### [facility] [address] [place] [address] Platelets (Bld) [#/Vol] 248 150-400 k/uL Normal 2019 [facility] (82330) Comment: Performed By: #### TSH, CBCD IF, CMP #### [facility] [address] [place] [address] RBC (Bld) [#/Vol] 4.00 3.90-5.20 m/uL Normal 11-24-2019 [facility] (09038) Comment: Performed By: #### TSH, CBCD IF, CMP #### [facility] [address] [place], [place] [address] WBC (Bld) [#/Vol] 9.11 3.70-11.00 k/uL Normal 11-24-2019 [facility] (77865) Comment: Performed By: #### TSH, CBCD IF, CMP #### [facility] [address] [place], [place] [address] cnpn on 2019-11-21 CNPN Telephone (FAMPWS) Normal 11-21-2019 [place] [facility] SALLY VARGAS ([id number]) 1980 [facility] [place] Date Time Provider Department (44249) 11/21/19 [facility] During your visit today, we recorded [...] MA on 11/23/19 [facility] on 2019-11-19 CNPN Telephone (FAMPWS) Normal 11-19-2019 [facility] SALLY VARGAS ([id number]) 1980 [facility] [place] Date Time Provider Department (78471) 11/19/19 [facility] During your visit today, we recorded [...] 11/21/2019 11:15 AM Signed Pt seen in [facility] ER on 11/19/19. Janneth Zhou, RN, RN [...] - Fully Assessed Reason for Visit: Question [1527] Patient Update [1234] Reason For Visit History [...] * *Final Report* * * Normal 11-17 FRONTAL/LAT DATE OF EXAM: Nov 18 2019 12:48PM [place] WOX 5291 - XR CHEST 2V FRONTAL/LAT / (34921) PROCEDURE REASON: multiple diagnoses * * * [...] tissues: Unremarkable. IMPRESSION: No acute radiographic abnormality. Licensed Club Manager: HERMINIO Transcribe Date/Time: Nov 18 2019 1:01P Dictated by : KORI BLANKENSHIP MD This examination was interpreted and the report reviewed and electronically signed by: KORI BLANKENSHIP MD on Nov 18 2019 1:02PM EST [id number] progress on 2019-11 PROGRESS HNO ID: [id number] Normal 11-18-2019 Author: Vianey Aguayo (Rt) Lara ([id number]) Service: ? Author Type: Pocketbook Maker Type: Progress Notes Filed: 11/18/2019 12:49 PM [...] 18, 2019 12:40 PM PROGRESS HNO ID: [id number] Normal 11-18-2019 Author: Randi Lara ([id number]) Service: ? Author Type: Physician Quality Control Operator Type: Progress Notes Filed: 11/18/2019 3:32 PM [...] Benign liver cyst 05/24/2010 CT scan at [facility] 11/2009 and 04/2010 showe 4 mm increase in size . No pain. No elevated LFTs on 03/11/2010. - Calculus of kidney 05/17/[address] Nicolas: Hospitalized age 20, and again later -- no procedures so far ([facility], 1995 [facility]) - Dysmenorrhea - Impaired fasting glucose 05/17/2008 [...] Approx. 3 cigarettes daily-1 pack every w [place] Substance Use Topics - Alcohol use: Yes [...] 2019-11-18 EKG1 NAME : SALLY VARGAS 020 PID : [id number] Sina boyd ([id number]) : 1980 Gender : Female Race : [...] ms QTC Calculation(Bazett) : 453 ms P [place] : 51 degrees R [place] : -43 degrees T [place] : 6 degrees Test Reason : Location : 185 : [facility] Overread By : RUBEN GALVIN D.O. Edited By : RUBEN GALVIN D.O. Referred By : ISABEL ARIAS(MAYA) Acquired by : morena MURRIETA [facility]) Normal 11-18-2019 [facility] SALLY VARGAS ([id number]) 1980 [place] Date Time Provider Department ([id number]) 11/18/19 [facility] During your visit today, we recorded the following informati on about you: Lorenzo Vu 11/18/2019 2:14 PM Addendum [facility] / [facility] calls with results of d-dimer 1.10 ( normal range is 0.27 - 0.49). MA notified. ISABEL ARIAS PA-C 11/18/2019 2:28 PM Signed Please let patient know that I need her to go to Er to get e valuated for possible blood clot in lung. MAYA Delgado Ma 11/18/2019 2:31 PM Signed Patient notified and voiced understanding. Valetne Bruce Ma Allergies As of Date: 11/18/2019 [...] 2019-11-18 [facility] Office Visit (FAMPWS) Normal 11-18-19 [facility] SALLY VARGAS ([id number]) 1980 [facility] [place] Date Time Provider Department ([id number]) 11/18/19 12:20 PM [facility] During your visit today, we recorded [...] States she was given gabapentin while in [facility] which helped or symptoms. I cannot [...] Benign liver cyst 05/24/2010 CT scan at [facility] 11/2009 and 04/2010 showe 4 mm increase in size . No pain. No elevated LFTs on 03/11/2010. - Calculus of kidney 05/17/[address] Nicolas: Hospitalized age 20, a nd again later -- no procedures so far ([facility], [facility]) - Dysmenorrhea - Impaired fasting glucose 05/17/2008 [...] Approx. 3 cigarettes daily-1 pack every w [place] Substance Use Topics - Alcohol use: Yes [...] (METRONIDAZOLE HCL) 03/11/2010 12 - Shortness of [place] th IBUPROFEN 06/18/2016 8 - GI Upset [...] pain syndrome [G89.4] Order(s):CONSULT TO PAIN MGT [835975] Order #: [id number] : 1 FUTURE CBC + DIFF [SQCBCDIF] Order #: [id number] FUTURE COMP METABOLIC PANEL [SQCMP] Order #: [id number] FUTURE D-DIMER [SQDDMER] Order #: [id number] FUTURE TSH BLD [SQTSH] Order #: [id number] FUTURE CONSULT TO CARDIOLOGY [9004] Order #: [id number]: 1 FUTUR E XR CHEST 2V FRONTAL/LAT [9913562] Order #: [id number] FUTURE TROPONIN T [SQTNT] Order #: [id number] FUTURE Prescriptions as of 11/18/2019 Sig: AMITRIPTYLINE [...] 11/18/19 emergency report on 2019-11-03 EMERGENCY REPORT [facility] Normal 11-03 [facility]spital EMERGENCY ROOM REPORT ([id number]) NAME ACCOUNT SEX AGE ADMIT DISCHARGE PT MED. RECORD# NUMBER DATE DATE TYPE SAM [id number] F 39 10/31/19 10/31/19 3 SALLY [id number] ROOM: ER DATE OF : 1980 DICTATING [...] try contacting Dr. Kyle hernandez through the [employer]. We will dispense her 2 Percocet to go home. I did r eview her OARRS, and she will be discharged in stable condition. Page 1 of 2 ABDIFATAHSALLY TORRES Emergency Room Report SAM SALLY : 1980 Dictated By: Nikhil Pena DO 10/31/19 18:03 JOB #: [id number] Transcribed By: am 11/01/19 14:42 Electronically signed by: JC Pena D.O. 11/03/19 07:04 Page 2 of 2 SALLY VARGAS Emergency Room Report urinalysis on 10-31 Calcium Ox 1+ NORMAL: NONE Normal 10-31-2019 [facility] (10122) Comment: Performed By: #### [id number] ## ## [facility],[address] [place] [address] 93778 Amorphous TRACE Normal 10-31-2019 [facility] (25759) Comment: Performed By: #### [id number] ## ## [facility],[address] [place] [address] 93053 Bacteria LM.HPF (Urine sed) TRACE Normal [facility] [#/Area] [facility] ( 36067) Comment: Performed By: #### [id number] ## ## [facility],[address] [place] [address] 69611 Bilirubin [Mass/Vol] NEG NORMAL: NEGATIVE mg/dL Normal [facility] (36511) Comment: Performed By: #### [id number] ## ## [facility],[address] [place] [address] 74276 Blood 25 NORMAL: NEGATIVE Abnormal 10-31-2019 [facility] (96723) Comment: Performed By: #### [id number] ## ## [facility],[address] [place] [address] 17377 Casts LM.LPF (Urine sed) NONE Normal 10-31 [facility] [/Area] [facility] ( 00078) Comment: Performed By: #### [id number] ## ## [facility],[address] [place] [address] 38910 Clarity (U) clear NORMAL: CLEAR Normal 10-31-2019 [facility] (19491) Comment: Performed By: #### [id number] ## ## [facility],[address] [place] [address] 94466 Color (U) yellow NORMAL: YELLOW Normal 10-31-2019 [facility] (12171) Comment: Performed By: #### [id number] ## ## [facility],[address] [place] [address] 79502 Crystals LM Nom (Urine sed) SEE BELOW Normal [facility] ( 20076) Comment: Performed By: #### [id number] ## ## [facility],[address] [place] [address] 39679 Epi Cells MANY Normal 10-31-2019 [facility] (92781) Comment: Performed By: #### [id number] ## ## [facility],[address] [place] [address] 40388 Glucose [Mass/Vol] NORM NORMAL: NORMAL Normal 2019 [facility] ( 30077) Comment: Performed By: #### [id number] ## ## [facility],[address] [place] [address] 05824 Ketone NEG NORMAL: NEGATIVE Normal 10-31-2019 [facility] (42266) Comment: Performed By: #### [id number] ## ## [facility],[address] [place] [address] 06225 Microscopic SEE BELOW Normal 10-31-2019 [facility] (20228) Comment: Result Comment: MICROSCOPIC Performed By: #### [id number] ## ## [facility],[address] [place] [address] 13739 Mucous NONE Normal 10-31-2019 [facility] (94462) Comment: Performed By: #### [id number] ## ## [facility],[address] [place] [address] 11282 Nitrite Ql (U) NEG NORMAL: NEGATIVE Normal 10-31-19 20 [facility] ( 93044) Comment: Performed By: #### [id number] ## ## [facility],[address] [place] [address] 15578 pH (Bld) 5 NORMAL: 5.0-8.0 Normal 10-31-2019 [facility] (97778) Comment: Performed By: #### [id number] ## ## [facility],[address] [place] [address] 79175 Protein (U) NEG NORMAL: NEGATIVE mg/dL Normal 10-31-2019 [facility] [Mass/Vol] [facility] (81217) Comment: Performed By: #### [id number] ## ## [facility],[address] [place] [address] 82463 Rbc 0-5 0-3/hpf Normal 10-31-2019 [facility] (12057) Comment: Performed By: #### [id number] ## ## [facility],[address] [place] [address] 43131 Sp [place] 1.030 NORMAL: 1.010-1.030 Normal 0 [facility] ( 31211) Comment: Performed By: #### [id number] ## ## [facility],[address] [place] [address] 44805 Specimen type Nom (Spec) UNSPECIFIED Normal [facility] ( 74406) Comment: Performed By: #### [id number] ## ## [facility],[address] [place] [address] 62148 Urobilinog NORM NORMAL: NORMAL Normal 10-31-2019 [facility] (38434) Comment: Performed By: #### [id number] ## ## [facility],[address] [place] [address] 15173 Wbc 1-5 0-5/hpf Normal 10-31-2019 [facility] (61397) Comment: Performed By: #### [id number] ## ## [facility],[address] [place] [address] 37332 WBC (Bld) [#/Vol] 25 NORMAL: NEGATIVE Abnormal 10-31 [facility] ( 59593) Comment: Performed By: #### [id number] ## ## [facility],[address] [place] [address] 16286 Yeast LM Ql (Urine sed) NONE Normal 2019 [facility] (24059) Comment: Performed By: #### [id number] ## ## [facility],[address] [place] [address] 10623 lipase on 2019-10-15 7 Lipase [Catalytic 40.0 18.0 - 51.0 U/L Normal 10-31-2019 [facility] activity/Vol] [facility] (13217) Comment: Performed By: #### [id number] ## ## [facility],[address] [place] [address] 43372 cmp with egfr on 03-11-16 Age - Reported 39 years Normal 10-31-2019 [facility] (92152) Comment: Performed By: #### [id number] ## ## [facility],[address] [place] [address] 56225 Albumin [Mass/Vol] 4.4 3.4 - 4.8 g/dL Normal 10-31-2019 [facility] ( 73311) Comment: Performed By: #### [id number] ## ## [facility],[address] [place] [address] 17793 Albumin/Globulin [Mass 1.3 0.9 - 1.6 {ratio} Normal 020 [facility]] [facility] (84045) Comment: Performed By: #### [id number] ## ## [facility],[address] [place] [address] 25626 ALK PHOS 79 38 - 126 U/L Normal 10-31-2019 [facility] (20069) Comment: Performed By: #### [id number] ## ## [facility],[address] [place] [address] 18182 ALT/SGPT 12 8 - 35 U/L Normal 10-31-2019 [facility] (96556) Comment: Performed By: #### [id number] ## ## [facility],[address] [place] [address] 15990 Anion gap [Moles/Vol] 12 10 - 20 mmol/L Normal 10-31-19 20 [facility] ( 86847) Comment: Performed By: #### [id number] ## ## [facility],[address] [place] [address] 30999 AST/SGOT 13 13 - 39 U/L Normal 10-31-2019 [facility] (59074) Comment: Performed By: #### [id number] ## ## [facility],[address] [place] [address] 82349 B/C RATIO 18 0 - 30 ratio Normal 10-31-2019 [facility] (58551) Comment: Performed By: #### [id number] ## ## [facility],[address] [place] [address] 79207 Bilirubin [Mass/Vol] 0.4 0.0 - 1.5 mg/dl Normal 0 [facility] ( 15875) Comment: Performed By: #### [id number] ## ## [facility],[address] [place] [address] 72243 Calcium [Mass/Vol] 9.6 8.6 - 10.2 mg/dl Normal 10-31-2019 [facility] ( 62750) Comment: Performed By: #### [id number] ## ## [facility],[address] [place] [address] 03975 Chloride [Moles/Vol] 103 98 - 107 mmol/L Normal 0 [facility] ( 47928) Comment: Performed By: #### [id number] ## ## [facility],[address] [place] [address] 78064 CO2 [Moles/Vol] 25.8 21.0 - 31.0 mmol/L Normal 10-31-2019 [facility] ( 01386) Comment: Performed By: #### [id number] ## ## [facility],[address] [place] [address] 64541 Creatinine [Mass/Vol] 1.0 0.6 - 1.2 mg/dl Normal 10-31-19 20 [facility] ( 15611) Comment: Performed By: #### [id number] ## ## [facility],[address] [place] [address] 07825 GFR/1.73 sq M predicted among Normal 10-31-2019 [facility] non-blacks MDRD (S/P/Bld) [Vol Hospital (06958) rate/Area] Comment: Result Comment: COMPREHENSIV E METABOLIC PANEL Performed By: #### [id number] ## ## [facility],[address] [place] [address] 75074 GFR/1.73 sq M >60 60 - 999 mL/min/{1.73_m2} Normal 0 [facility] predicted among [facility] non-blacks MDRD (000 00) (S/P/Bld) [Vol rate/Area] [...] OF AGE AND OLDER. Performed By: #### [id number] ## ## [facility],[address] [place] [address] 37919 Globulin (S) [Mass/Vol] 3.3 1.5 - 3.8 G/DL Normal 2019 [facility] ( 32699) Comment: Performed By: #### [id number] ## ## [facility],[address] [place] [address] [place] [address] Glucose [Mass/Vol] 96 74 - 106 mg/dl Normal 10-31-2019 [facility] ( 34985) Comment: Performed By: #### [id number] ## ## [facility],[address] [place] [address] [place] [address] Potassium [Moles/Vol] 3.9 3.5 - 5.1 mmol/L Normal 10-31-19 20 [facility] ( 33579) Comment: Performed By: #### [id number] ## ## [facility],[address] [place] [address] [place] [address] Protein [Mass/Vol] 7.7 6.4 - 8.3 g/dl Normal 10-31-2019 [facility] ( 83422) Comment: Performed By: #### [id number] ## ## [facility],[address] [place] [address] [place] [address] Sodium [Moles/Vol] 137 136 - 145 mmol/l Normal 10-31-2019 [facility] ( 49613) Comment: Performed By: #### [id number] ## ## [facility],[address] [place] [address] 77963 Urea nitrogen [Mass/Vol] 18 6 - 20 mg/dl Normal 10-31 [facility] ( 42074) Comment: Performed By: #### [id number] ## ## [facility],[address] [place] [address] 09758 cbc + diff on 10-31 Basophils (Bld) 0.20 0.00 - 0.10 x10EE3/UL High 10-31-2019 [facility] [#/Vol] [facility] ospital (73104) Comment: Performed By: #### 630393 ## ## [facility],[address] [place] [address] 23658 Basophils/100 WBC (Bld) 2.0 0.0 - 2.0 % Normal 2019 [facility] ( 61891) Comment: Performed By: #### 497830 ## ## [facility],[address] [place] [address] 13737 CBC + DIFF Normal 10-31-2019 [facility] (91802) Comment: Result Comment: CBC-COMPLETE BLOOD COUNT Performed By: #### [id number] ## ## [facility],[address] [place] [address] 59059 Eosinophils (Bld) 0.40 0.00 - 0.50 x10EE3/UL Normal 10-31-2019 [facility] [#/Vol] [facility] (56908) Comment: Performed By: #### [id number] ## ## [facility],[address] [place] [address] 53692 Eosinophils/100 WBC (Bld) 4.8 0.0 - 7.0 % Normal 10-15 [facility] ( 41741) Comment: Performed By: #### 305744 ## ## [facility],[address] [place] [address] 23233 Erythrocyte distribution 13.7 12.0 - 15.6 % Normal [facility] (RBC) [Ratio] Hospital (46650) Comment: Performed By: #### 942379 ## ## [facility],[address] [place] [address] 96350 Hematocrit (Bld) [Volume 35.8 34.0 - 46.0 % Normal [facility] ( 01301) Comment: Performed By: #### [id number] ## ## [facility],[address] [place] [address] 10038 Hemoglobin (Bld) 12.3 12.0 - 16.0 g/dl Normal 10-31-2019 [facility] [Mass/Vol] [facility] (55368) Comment: Performed By: #### 784883 ## ## [facility],[address] [place] [address] 68239 Lymphocytes (Bld) 2.70 0.80 - 2.80 x10EE3/UL Normal 10-31-2019 [facility] [#/Vol] [facility] (35585) Comment: Performed By: #### 369981 ## ## [facility],[address] [place] [address] 04833 Lymphocytes/100 WBC (Bld) 30.3 20.0 - 45.0 % Normal [facility] ( 52967) Comment: Performed By: #### 405320 ## ## [facility],[address] [place] [address] 26900 MANUAL DIFF N/A Normal 10-31-2019 [facility] (80632) Comment: Performed By: #### [id number] ## ## [address] [address] MCH (RBC) [Entitic mass] 30 27 - 33 pg Normal 10-31 [facility] ( 30971) Comment: Performed By: #### 398117 ## ## [facility],[address] [place] [address] 49044 MCHC (RBC) [Mass/Vol] 34 32 - 36 X10 3 Normal 10-31-19 20 [facility] ( 65380) Comment: Performed By: #### [id number] ## ## [facility],[address] [place] [address] 52311 MCV (RBC) [Entitic vol] 88 80 - 99 fl Normal 2019 [facility] ( 71127) Comment: Performed By: #### [id number] ## ## [facility],[address] [place] [address] 56251 Monocytes (Bld) 0.50 0.20 - 1.00 x10EE3/UL Normal 10-31-2019 [facility] [#/Vol] [facility] (08946) Comment: Performed By: #### [id number] ## ## [facility],[address] [place] [address] 48315 MONOS % 5.4 0.0 - 10.0 % Normal 10-31-2019 [facility] (30774) Comment: Performed By: #### [id number] ## ## [facility],[address] [place] [address] 26650 Morphology Adrian (Bld) [Interp] N/A Normal 10-31-2019 [facility] ( 14383) Comment: Performed By: #### [id number] ## ## [facility],[address] [place] [address] 83321 Neutrophils (Bld) 5.10 1.50 - 7.10 x10EE3/UL Normal 10-31-2019 [facility] [#/Vol] [facility] (19100) Comment: Performed By: #### 326556 ## ## [facility],[address] [place] [address] 17036 Neutrophils/100 WBC (Bld) 57.5 46.0 - 76.0 % Normal [facility] ( 32960) Comment: Performed By: #### 759712 ## ## [facility],[address] [place] [address] 75986 Platelet mean volume 8.9 6.6 - 10.5 fl Normal 10-31-[address] [facility] (Bld) [Entitic vol] Hospital (91167) Comment: Result Comment: AUTOMATED DI FFERENTIAL Performed By: #### 193739 ## ## [facility],[address] [place] [address] 11000 Platelets (Bld) 280 150 - 450 x10EE3/UL Normal 10-31-2019 [facility] [#/Vol] [facility] ospital (76707) Comment: Performed By: #### 280506 ## ## [facility],[address] [place] [address] 52392 RBC (Bld) [#/Vol] 4.06 4.10 - 5.30 x 10EE6/UL Low 0 [facility] ( 28609) Comment: Performed By: #### [id number] ## ## [facility],[address] [place] [address] 37397 WBC (Bld) [#/Vol] 8.8 4.5 - 10.8 x 10EE3/UL Normal 10-31-2019 [facility] ( 99267) Comment: Performed By: #### 680852 ## ## [facility],[address] [place] [address] 56226 hemogram on 2019-09 Erythrocyte distribution 13.6 11.5-14.5 % Normal 10-08 [facility] width (RBC) [Ratio] (13035) Comment: Performed By: #### MG JULIA 3, HEMOG #### [employer] [address] [place] [address] Hematocrit (Bld) [Volume 33.3 35.0-47.0 % Low 10-08 [facility] fraction] (45844) Comment: Performed By: #### JULIA MG 3, HEMOG #### [facility] [address] [place], [place] Hemoglobin (Bld) [Mass/Vol] 11.3 11.7-16.0 g/dL Low [facility] (54321) Comment: Performed By: #### BMP3M, MG 3, HEMOG #### [place] [address] [address] [place], [place] MCH (RBC) [Entitic mass] 30.4 26.0-34.0 pg Normal 10-08 [facility] (64816) Comment: Performed By: #### BMP3M, MG 3, HEMOG #### [place] [address] [address] [place], [place] MCHC (RBC) [Mass/Vol] 33.9 32.0-36.0 % Normal 10-08-19 20 [facility] (47027) Comment: Performed By: #### BMP3M, MG 3, HEMOG #### [place] [address] [address] [place], [place] MCV (RBC) [Entitic vol] 89.9 79.0-98.0 fL Normal 2019 [facility] (46220) Comment: Performed By: #### BMP3M, MG 3, HEMOG #### [place] [address] [address] [place], [place] Platelet mean volume (Bld) 9.5 7.4-10.4 fL Normal [facility] [Entitic vol] (88410 ) Comment: Performed By: #### BMP3M, MG 3, HEMOG #### [place] [address] [address] [place], [place] Platelets (Bld) [#/Vol] 240 140-440 10*3/uL Normal 2019 [facility] (98326) Comment: Performed By: #### BMP3M, MG 3, HEMOG #### [place] [address] [address] [place], [place] RBC (Bld) [#/Vol] 3.70 3.80-5.20 10*6/uL Low 10-08-2019 [facility] (98797) Comment: Performed By: #### BMP3M, MG 3, HEMOG #### [facility] [address] [place], [place] WBC (Bld) [#/Vol] 18.5 3.6-10.7 10*3/uL High 10-08-2019 [facility] (75668) Comment: Performed By: #### BMP3M, MG 3, HEMOG #### [facility] [address] [place], [place] ts gel on 2019-09-15 4 TS GEL ABO Group: Normal 10-07-2019 [facility] (52210) O Rh, Gel: POS Antibody Screen Gel: NEG Comment: Performed By: #### BMP3M, MG 3, HEMOG #### [facility] [address] [place], [place] surgical pathology on 2019-10-07 Surgical [id number] Normal 10-07-2019 [facility] Pathology [facility] System PATHOLOGY AND ( ) LABORATORY MEDICINE [address] [place] [address] FINAL SURGICAL PATHOLOGY REPORT NAME: SALLY VARGAS : 1980 39 Y F BILLING NO.: [id number] LOCATION: [facility] 5117 01 PROCEDURE 10/07/2019 DATE: SURGEON: [...] by the clinical labor atories of [facility]. They have not been cleared by [...] negativity on decalcified specimens. Professional Performing Location: [place] [address] [place] [address]. DEPARTMENT OF PATHOLOGY AND LABORATORY MEDICINE [place], [place] [address] op note on Op Note PATIENT: SALLY VARGAS -2 [facility] (35795) ADMISSION DATE: 10/07/2019 SURGERY DATE: 10/07/2019 DATE [...] with a minimal EBL. [employer] Job ID: [id number] Delon Palacios MD DOD:10/07/2019 10:46 A SA/semaj DOT:10/07/2019 12:51 P Job Number: [id number] Document Number: [id number] cc: Delon Palacios MD [facility] Physicians [address] [facility] [address] Lui Harris MD [address] [place], [address] [facility] [address] follicle stim hormone on 2019-09-15 Follicle Stim Hormone 6.5 m[IU]/mL Normal 09-15-19 [facility] (80555) Comment: Result Comment: Females: Follicular Phase ...... 2.3- 12.6 Mid-cycle Peak ........ 5.2- 17.5 Luteal Phase .......... 1.7- 12.9 Post-menopausal ....... 12.7 -132.2 Males: 0.7-10.8 Performed By: #### FSH3 #### [facility] [address] [place] [address] us pelvis ta/tv on 2019-09-11 US Pelvis TA/TV Patient Name: SALLY VARGAS 09-11-2019 [facility] ([id number] ) Ultrasound Exam Date/Time 09/11/2019 14:17:16 EST Exam US Pelvis TA/TV Ordering Physician MARLA ARNDT REBECCA E. Accession Number [id number] CPT4 Codes 61297 (US Pelvis TA/TV), 30185 (US Transvaginal) Reason For Exam right ovarian mass seen on CT, s/p hysterectomy Report EXAMINATION: Transabdominal and transvaginal pelvic ultrasound. COMPARISON: CT scan of 09/11/2019 from [facility]. REASON FOR STUDY: Right ovarian mass; [...] Baso Cnt 0.0 0.0-0.2 10*3/uL Normal 09-05-2019 [facility] [employer] [facility] (15953) Comment: Performed By: #### NALLELY CHI P3 #### [employer] [address] [place] [address] Abs Neutrophile Cnt 3.9 1.8-7.0 10*3/uL Normal 09-05-2019 [facility] [employer] (70044) Comment: Performed By: #### HEMMAGDALENO BM P3 #### [employer] [address] [place] [address] Basophils/100 WBC (Bld) 0.3 0.0-2.0 % Normal 2018 [facility] [employer] [facility] (84735) Comment: Performed By: #### ALON BM P3 #### [employer] [address], [place] Eosinophils (Bld) [#/Vol] 0.2 0.0-0.5 10*3/uL Normal 08-15 [facility] (09459) Comment: Performed By: #### HEMDF, BM P3 #### [place] [address] [place], [place] Eosinophils/100 WBC (Bld) 3.3 1.0-6.0 % Normal 08-15 [facility] (07870) Comment: Performed By: #### HEMDF, BM P3 #### [place] [address] [place], [place] Erythrocyte distribution 12.9 11.5-14.5 % Normal 09-05 [facility] width (RBC) [Ratio] (03989) Comment: Performed By: #### HEMDF, BM P3 #### [place] [address] [place], [place] Granulocytes/100 WBC (Bld) 55.5 40.0-80.0 % Normal [facility] (88244) Comment: Performed By: #### HEMDF, BM P3 #### [place] [address] [place], [place] Hematocrit (Bld) [Volume 34.8 35.0-47.0 % Low 09-05 [facility] fraction] (13348) Comment: Performed By: #### HEMDF, BM P3 #### [place] [address] [place], [place] Hemoglobin (Bld) [Mass/Vol] 11.5 11.7-16.0 g/dL Low [facility] (29812) Comment: Performed By: #### HEMDF, BM P3 #### [place] [address] [place], [place] Lymphocytes (Bld) [#/Vol] 2.5 1.0-4.3 10*3/uL Normal 08-15 [facility] (08198) Comment: Performed By: #### HEMDF, BM P3 #### [place] [address] [place], [place] Lymphocytes/100 WBC (Bld) 35.4 20.0-40.0 % Normal 08-15 [facility] (00545) Comment: Performed By: #### HEMDF, BM P3 #### [place] [address] [place], [place] MCH (RBC) [Entitic mass] 29.9 26.0-34.0 pg Normal 09-05 [facility] (72596) Comment: Performed By: #### HEMDF, BM P3 #### [place] [address] [place], [place] MCHC (RBC) [Mass/Vol] 33.0 32.0-36.0 % Normal 09-05-20 [facility] (69403) Comment: Performed By: #### HEMDF, BM P3 #### [place] [address] [place], [place] MCV (RBC) [Entitic vol] 90.7 79.0-98.0 fL Normal 2018 [facility] (71933) Comment: Performed By: #### HEMDF, BM P3 #### [place] [address] [place], [place] Monocytes (Bld) [#/Vol] 0.4 0.0-0.8 10*3/uL Normal 2018 [facility] (45391) Comment: Performed By: #### HEMDF, BM P3 #### [place] [address] [place], [place] Monocytes/100 WBC (Bld) 5.5 2.0-10.0 % Normal 2018 [facility] (43341) Comment: Performed By: #### HEMDF, BM P3 #### [place] [address] [place], [place] Platelet mean volume (Bld) 9.8 7.4-10.4 fL Normal [facility] [Entitic vol] (24947 ) Comment: Performed By: #### HEMDF, BM P3 #### [facility] [address], [place] Platelets (Bld) [#/Vol] 204 140-440 10*3/uL Normal 2018 [facility] (67347) Comment: Performed By: #### HEMDF, BM P3 #### [facility] [address], [place] RBC (Bld) [#/Vol] 3.83 3.80-5.20 10*6/uL Normal 09-05-2019 [facility] (80847) Comment: Performed By: #### HEMDF, BM P3 #### [facility] [address], [place] WBC (Bld) [#/Vol] 7.0 3.6-10.7 10*3/uL Normal 09-05-2019 [facility] (98333) Comment: Performed By: #### HEMDF, BM P3 #### [facility] [address], [place] cr urography retrograde w/ + w/o kub on 2019-09-05 CR Urography Patient Name: SALLY VARGAS Normal 09-05-2019 [facility] Retrograde w/ + w/o System (52771) KUB Diagnostic Radiology Exam Date/Time 09/05/2019 08:12:21 EST Exam CR Urography Retrograde w/ + w/o KUB Ordering Physician MAUREEN STONE Accession Number [id number] CPT4 Codes 26189 () Reason For Exam Renal stone fluro c arm c and p Report A total of 1 minute and 11 seconds of fluoro time was used in the Operating Suite for this procedure. No other report will be generated. Final Signed Date and Time: 09/26/2019 2:02 pm Signed by: [employer] STEEL [employer], SYSTEM Transcribed Date and Time: 09/26/2019 1:19 Transcribed By:KRISTAN basic metabolic panel on 2019-09-05 Calcium [Mass/Vol] 8.7 8.4-10.4 mg/dL Normal 09-05-2019 [facility] (94417) Comment: Performed By: #### HEMDF, BM P3 #### [facility] [employer] [facility] [address], [place] Anion gap [Moles/Vol] 7 Normal 09-05-20 [facility] (21491) Comment: Performed By: #### HEMDF, BM P3 #### [facility] [employer] [facility] [address], [place] CO2 [Moles/Vol] 24 22-30 mmol/L Normal 09-05-2019 [facility] (21045) Comment: Performed By: #### HEMDF, BM P3 #### [facility] [employer] [facility] [address], [place] Creatinine [Mass/Vol] 0.79 0.52-1.25 mg/dL Normal 09-05-20 [facility] (03007) Comment: Performed By: #### HEMDF, BM P3 #### [facility] [employer] [facility] [address], [place] GFR/1.73 sq M > 60.0 >60 mL/min/{1.73_m2} Normal 9 [facility] predicted among Syst em (65919) blacks MDRD (S/P/Bld) [Vol rate/Area] Comment: Performed By: #### HEMDF, BM P3 #### [facility] [address], [place] GFR/1.73 sq M > 60.0 >60 mL/min/{1.73_m2} Normal 9 [facility] predicted among Syst em (26344) non-blacks MDRD (S/P/Bld) [Vol rate/Area] Comment: Result Comment: Source- MDRD equation with creatinine calibration to IDMS(NKDEP) eGFR not recommended for dylon g dose adjustment Performed By: #### HEMDF, BM P3 #### [facility] [employer] [facility] [address], [place] Glucose [Mass/Vol] 85 70-100 mg/dL Normal 09-05-2019 [facility] (12997) Comment: Performed By: #### HEMDF, BM P3 #### [facility] [address], [place] Urea nitrogen [Mass/Vol] 5 7-20 mg/dL Low 09-05 [facility] (93430) Comment: Performed By: #### HEMDF, BM P3 #### [place] [address] [place], [place] Chloride [Moles/Vol] 108 98-107 mmol/L High 9 [facility] (11790) Comment: Performed By: #### HEMDF, BM P3 #### [place] [address] [place], [place] Potassium [Moles/Vol] 4.0 3.5-5.1 mmol/L Normal 09-05-20 19 [facility] (81945) Comment: Performed By: #### HEMDF, BM P3 #### [place] [address] [place], [place] Sodium [Moles/Vol] 140 135-145 mmol/L Normal 09-05-2019 [facility] (32707) Comment: Performed By: #### HEMDF, BM P3 #### [place] [address] [place], [place] magnesium on 2018-09 Magnesium [Mass/Vol] 1.9 1.6-2.3 mg/dL Normal 9 [facility] (02320) Comment: Performed By: #### BMP3M, MG 3, HEMOG #### [place] [address] [place], [place] hemogram on 2019-08 Erythrocyte distribution 13.2 11.5-14.5 % Normal 09-04 [facility] width (RBC) [Ratio] (18008) Comment: Performed By: #### BMP3M, MG 3, HEMOG #### [address] Hematocrit (Bld) [Volume 36.7 35.0-47.0 % Normal 09-04 [facility] fraction] (33514) Comment: Performed By: #### BMP3M, MG 3, HEMOG #### [place] [address] [place], [place] Hemoglobin (Bld) 12.3 11.7-16.0 g/dL Normal 09-04-2019 [facility] [Mass/Vol] (46802) Comment: Performed By: #### BMP3M, MG 3, HEMOG #### [facility] [address], [place] MCH (RBC) [Entitic mass] 30.6 26.0-34.0 pg Normal 09-04 [facility] (05532) Comment: Performed By: #### BMP3M, MG 3, HEMOG #### [place] [address] [place] MCHC (RBC) [Mass/Vol] 33.5 32.0-36.0 % Normal 09-04-20 19 [facility] (78202) Comment: Performed By: #### BMP3M, MG 3, HEMOG #### [place] [address] [place] MCV (RBC) [Entitic vol] 91.3 79.0-98.0 fL Normal 2018 [facility] (47558) Comment: Performed By: #### BMP3M, MG 3, HEMOG #### [place] [address] [place] Platelet mean volume (Bld) 10.4 7.4-10.4 fL Normal [facility] [Entitic vol] (63635 ) Comment: Performed By: #### BMP3M, MG 3, HEMOG #### [place] [address] [place], [place] Platelets (Bld) [#/Vol] 211 140-440 10*3/uL Normal 2018 [facility] (80146) Comment: Performed By: #### BMP3M, MG 3, HEMOG #### [place] [address] [place], [place] RBC (Bld) [#/Vol] 4.02 3.80-5.20 10*6/uL Normal 09-04-2019 [facility] (47712) Comment: Performed By: #### BMP3M, MG 3, HEMOG #### [facility] [employer] [facility] [address], [place] WBC (Bld) [#/Vol] 7.1 3.6-10.7 10*3/uL Normal 09-04-2019 [facility] (47242) Comment: Performed By: #### BMP3M, MG 3, HEMOG #### [facility] [address], [place] culture urine on 01-09-22 CULTURE URINE CULTURE URINE --> Status: F Normal 09-04-2019 [facility] No growth (<1,000 CFU/ml). (85268) Comment: Order Comment: Specimen Sour ce Comment:Urine, clean catch Performed By: #### C/UR #### [place] [address] [place], [place] basic metabolic panel on 2019-09-04 Potassium [Moles/Vol] 3.5 3.5-5.1 mmol/L Normal 09-04-20 [facility] (93385) Comment: Performed By: #### BMP3M, MG 3, HEMOG #### [facility] [employer] [place] [address], [place] Anion gap [Moles/Vol] 9 Normal 09-04-20 [facility] (92396) Comment: Performed By: #### BMP3M, MG 3, HEMOG #### [place] [address] [place], [place] Calcium [Mass/Vol] 8.8 8.4-10.4 mg/dL Normal 09-04-2019 [facility] (54117) Comment: Performed By: #### BMP3M, MG 3, HEMOG #### [place] [address] [place], [place] CO2 [Moles/Vol] 26 22-30 mmol/L Normal 09-04-2019 [facility] (06188) Comment: Performed By: #### BMP3M, MG 3, HEMOG #### [place] [address] [place], [place] Glucose [Mass/Vol] 76 70-100 mg/dL Normal 09-04-2019 [facility] (73254) Comment: Performed By: #### BMP3M, MG 3, HEMOG #### [facility] [address], [place] Urea nitrogen [Mass/Vol] 10 7-20 mg/dL Normal 09-04 [facility] (42354) Comment: Performed By: #### BMP3M, MG 3, HEMOG #### [facility] [address], [place] Creatinine [Mass/Vol] 0.81 0.52-1.25 mg/dL Normal 09-04-20 19 [facility] (24279) Comment: Performed By: #### BMP3M, MG 3, HEMOG #### [facility] [employer] [place] [address] [place], [place] GFR/1.73 sq M > 60.0 >60 mL/min/{1.73_m2} Normal 9 [facility] among Syst em (59581) blacks MDRD (S/P/Bld) [Vol rate/Area] Comment: Performed By: #### BMP3M, MG 3, HEMOG #### [facility] [employer] [place] [address] [place], [place] GFR/1.73 sq M > 60.0 >60 mL/min/{1.73_m2} Normal 9 [facility] predicted among Syst em (27582) non-blacks MDRD (S/P/Bld) [Vol rate/Area] Comment: Result Comment: Source- MDRD equation with creatinine calibration to IDMS(NKDEP) eGFR not recommended for dylon g dose adjustment Performed By: #### BMP3M, MG 3, HEMOG #### [facility] [place] [address] [place], [place] Sodium [Moles/Vol] 138 135-145 mmol/L Normal 09-04-2019 [facility] (76460) Comment: Performed By: #### BMP3M, MG 3, HEMOG #### [facility] [address] [place] [address] Chloride [Moles/Vol] 103 98-107 mmol/L Normal 9 [facility] (47500) Comment: Performed By: #### BMP3M, MG 3, HEMOG #### [facility] [address] [place] [address] cr abdomen ap on 01-09-21 CR Abdomen AP Patient Name: SALLY VARGAS 09-03-2019 [facility] ([id number] ) Diagnostic Radiology Exam Date/Time 09/03/2019 17:35:36 EST Exam CR Abdomen AP Ordering Physician MD RACH,CONCHIS Ha Accession Number [id number] CPT4 Codes 45203 () Reason For Exam nephrolithiasis Report ABDOMEN, [...] on 2019-08-03 CNCO Letter Text Normal 08-03-2019 [facility] (01240) xr sacrum/coccyx 3v ap/lat on 2019-07-21 XR SACRUM/COCCYX 3V * * *Final Report* * * Normal 07-21-2019 [place] AP/LAT DATE OF EXAM: Jul 21 2019 11:38AM [facility] WOX 5246 - XR SACRUM/COCCYX 3V AP/LAT / 4 [place] PROCEDURE REASON: multiple diagnoses (82063) * * * * Physician Interpretation * [...] BONY ABNORMALITY IN THE PELVIS SEGMENT COCCYX. Licensed Club Manager: [facility] Transcribe Date/Time: Jul 21 2019 4:01P Dictated by : ESTEE CUMMINGS MD This examination was interpreted and the report reviewed and electronically signed by: ESTEE CUMMINGS MD on Jul 21 2019 4:06PM EST [id number] xr lumbar 3v ap/lat/l5-s1 on 2019-07-21 XR LUMBAR 3V * * *Final Report* * * Normal 11-0 [place] AP/LAT/L5-S1 DATE OF EXAM: Jul 21 2019 11:38AM Clinic WOX 5228 - XR LUMBAR 3V AP/LAT/L5-S1 / [place] PROCEDURE REASON: multiple diagnoses (64404) * * * * Physician Interpretation * [...] BONY ABNORMALITY IN THE PELVIS SEGMENT COCCYX. Licensed Club Manager: HERMINIO Transcribe Date/Time: Jul 21 2019 4:01P Dictated by : ESTEE CUMMINGS MD This examination was interpreted and the report reviewed and electronically signed by: ESTEE CUMMINGS MD on Jul 21 2019 4:06PM EST [id number] tsh on 2019-07-21 TSH Qn 1.510 0.270-4.200 uU/mL Normal 07-21-2019 [facility] (94054) Comment: Result Comment: If the patie nt [...] Performed By: #### MORIAH, TS H, HBA1C #### [id number] [place] [address] [phone] progress on 2019-07 PROGRESS HNO ID: [id number] Normal 07-21-2019 Author: Elena Milladr [facility] ([id number]) Service: ? Author Type: ? Type: Progress [...] 21, 2019 11:23 AM PROGRESS HNO ID: [id number] Normal 07-21-2019 Author: AustinPaRex) Hugo Lara ([id number]) Service: ? Author Type: Physician Quality Control Operator Type: Progress Notes Filed: 07/21/2019 11:26 AM [...] Benign liver cyst 05/24/2010 CT scan at [facility] 11/2009 and 04/2010 showe 4 mm increase in size . No pain. No elevated LFTs on 03/11/2010. - Calculus of kidney 05/17/[address] Nicolas: Hospitalized age 20, and again later -- no procedures so far ([facility], most, 1995 [facility]) - Dysmenorrhea - Impaired fasting glucose 05/17/2008 [...] file Gets together: Not on file Attends taoism service: Not on file Active member of [...] Cholesterol [Mass/Vol] 206 <200 mg/dL High 019 [facility] (98615) Comment: Result Comment: <200 mg/dL, Desirable 200-239 mg/dL, Borderline hi gh >239 mg/dL, High Performed By: #### LIPNF, TS H, HBA1C #### [id number] [place], [place] [phone] Cholesterol in 2.39 <2.54 mg/dL Normal 07-21-2019 [facility] LDL/Cholesterol in HDL [[facility] (79163) ratio] Comment: Result Comment: Reference: 1. National Cholesterol Educ ation Program ATP III Guideline At-A-Glance Quick Desk Reference: National Heart, Lung, and Blood [place]. National Institutes of Health. 2001: NIH Publication No. 01-3305. 2. An International Atherosc lerosis Society position paper: global recommendations for the management of dyslipidemia: executive summary, Atherosclerosis. 2014: 232(2):410-413. Performed By: #### LIPCARMELITA, TS H, HBA1C ####[facility] [place] [address] [phone] Cholesterol.total/Cholesterol in 4.04 <5.10 mg/dL Normal 07-21-2019 [place] HDL [Mass ratio] [facility] (64429) Comment: Performed By: #### LIPCARMELITA, TS H, HBA1C ####[facility] [address] [phone] HDL Cholesterol, NF 51 >39 mg/dL Normal 07-21-2019 [facility] (35239) Comment: Result Comment: 40-59 mg/dL, Acceptable >59 mg/dL, High: Negative ri sk factor for coronary heart disease <40 mg/dL, Low: Positive ris k factor for coronary heart disease Performed By: #### LIPCARMELITA, TS H, HBA1C ####[place] [address] [place] [address] [phone] LDL Cholesterol, NF 122 <100 mg/dL High 07-21-2019 [facility] (65758) Comment: Result Comment: <100 mg/dL, Optimal 100-129 mg/dL, Near optimal/ above optimal 130-159 mg/dL, Borderline hi gh 160-189 mg/dL, High >189 mg/dL, Very high Secondary prevention optimal LDL Cholesterol levels are recommended to be < 70 mg/dL Performed By: #### LIPCARMELITA, TS H, HBA1C ####[facility] [address] [phone] Non HDL Chol, NF 155 <130 mg/dL High 07-21-2019 [facility] (42589) Comment: Result Comment: <130 mg/dL, Optimal 130-159 mg/dL, Near optimal/ above optimal 160-189 mg/dL, Borderline hi gh 190-219 mg/dL, High >219 mg/dL, Very high Secondary prevention optimal non HDL Cholesterol levels are recommended to be < 100 mg/dL Performed By: #### LIPNF, TS H, HBA1C ####[facility] [address] [phone] Triglycerides, NF 163 <150 mg/dL High 07-21-2019 [facility] (07556) Comment: Result Comment: <150 mg/dL, Normal 150-199 mg/dL, Borderline hi gh 200-499 mg/dL, High >499 mg/dL, Very high Performed By: #### LIPNF, TS H, HBA1C ####[facility] [address] [phone] VLDL Cholesterol, NF 33 <30 mg/dL High 9 [facility] (95527) Comment: Performed By: #### LIPNF, TS H, HBA1C ####[place] [address] [place] [address] [phone] hemoglobin a1c on 2 HbA1c (Bld) [Mass fraction] 105 mg/dL Normal [facility] (55384) Comment: Result Comment: eAG: (Estima arnie average glucose) is a calculated value from HgbA1c and is business process representative of the average blood glucose level in the last 2-3 month period. Performed By: #### LIPNF, TS H, HBA1C ####[place] [address] [place] [address] [phone] HbA1c (Bld) [Mass fraction] 5.3 4.3-5.6 % Normal [facility] (01584) Comment: Result Comment: [place] Marya betes Association guidelines indicate that patients with HgbA1c in the range 5.7-6.4% are at increased risk for development of diabetes, and intervention by lifestyle modification may be beneficial. HgbA1c greater o r equal to 6.5% is considered diagnostic of diabetes. Performed By: #### LIPNF, TS H, HBA1C ####[facility] [place] [address] [phone] cnov on 2019-07-21 CNOV Office Visit (FAMPWS) Normal 07-21-20 19 [place] [facility] SALLY VARGAS ([id number]) 1980 F [place] Date Time Provider Department (79709) 07/21/19 10:40 AM JAY ARIAS) RAMA During [...] Benign liver cyst 05/24/2010 CT scan at [facility] 11/2009 and 04/2010 showe 4 mm increase in size . No pain. No elevated LFTs on 03/11/2010. - Calculus of kidney 05/17/[address] Nicolas: Hospitalized age 20, a nd again later -- no procedures so far ([facility], most, 1995 [facility]) - Dysmenorrhea - Impaired fasting glucose 05/17/2008 [...] file Gets together: Not on file Attends taoism service: Not on file Active member of [...] (METRONIDAZOLE HCL) 03/11/2010 12 - Shortness of [place] th IBUPROFEN 06/18/2016 8 - GI Upset [...] cardiovascular disease [Z13.220, Z13.6] Order(s):CONSULT TO NEUROLOGY [9005] Order #: [id number]: 1 FUTURE amitriptyline (ELAVIL) 50 mg tabletTake 1 tablet by mouth da federico at bedtime.Disp: 30 tabletRfl: 5 XR LUMBAR GENERAL 3V AP/LAT/L5-S1 [4908346] Order #: [id number] FUTURE XR SACRUM/COCCYX 3V AP/LAT [2127632] Order #: [id number] FUT URE TSH BLD [SQTSH] Order #: [id number] FUTURE HGB A1C [SERQC6B] Order #: [id number] FUTURE LIPID PANEL, NONFASTING [SQLIPNF] Order #: [id number] FUTURE cyclobenzaprine (FLEXERIL) 10 mg tabletTake 1 [...] - 3. Body Temperature 97.81 [degF] 05-17-2020 [facility] (48598) Body Temperature 97.9 [degF] 05-08-2020 [facility] (21381) Body weight 89.9 kg 05-17-2020 (84101) Body weight 93.89 kg 05-08-2020 (07472) BP Diastolic 82 mm[Hg] 05-17-2020 (44475) BP Diastolic 76 mm[Hg] 05-08-2020 (04978) BP Systolic 124 mm[Hg] 05-17-2020 (04209) BP Systolic 121 mm[Hg] 05-08-2020 (25820) Height 154.9 cm 05-08-2020 (03979) Pulse (Heart Rate) 86 /min 05-17-2020 [place] [facility] (29778) Pulse (Heart Rate) 91 /min 05-08-2020 [place] [facility] (35541) Pulse Oximetry 97 % 05-08-2020 (08066) Respiratory Rate 16 /min 05-17-2020 [facility] (35130) Respiratory Rate 18 /min 05-08-2020 [facility] (82257) Encounters Date Type Reason Provider Location 06-25-2020 - Chart abstracting Postoperative pain Mala [facility] 06-25-2020 [facility] Comment: Refill Request 05-23-2020 - E-mail encounter Isabel Romero) 05-23-2020 from jackie Arias 03-24-2020 - Emergency Migraine, CORBY Eddy Mello Johnston 03-24-2020 department unspecified, not [facility] patient visit CORBY frazier ([id number]) without status [facility] migrain[facility] CORBY [facility] ISABEL ARIAS UNKNOWN PROVIDER 01-21-2020 - Emergency ANA Johnston 01-21-2020 department [facility] al patient visit ANA ALVARADO ([id number]) JENNIFER ARIAS UNKNOWN PROVIDER 11-25-2019 - Emergency ANA Johnston 11-25-2019 department [facility] al patient visit ANA ALVARADO ([id number]) JENNIFER ARIAS UNKNOWN PROVIDER 10-31-2019 - Emergency Lower abdominal NIKHIL E Mello Moreira shiva 10-31-2019 department pain, [facility] al patient visit unspecified NIKHIL Shannon ([id number]) JEAN ESTRADA PROVIDER 04-26-2020 - Letter encounter [...] pancreas Mala [facility] 06-05-2020 procedure [facility] Comment: Pancreatic cyst (Primary Dx) 05-30-2020 - Patient [facility] Provider Marco [facility] c 05-30-2020 encounter procedure 05-24-2020 - Patient Abdominal Johnny Mccall Gastroenterolog y 05-24-2020 encounter bloating [facility] procedure Comment: Bloating (Primary Dx); Nausea and vomiting, intract ability of vomiting not specified, unspecified vomiting type; Diarrhea, unspecified type 05-23-2020 Patient encounter Postoperative pain Isabel Romero) [facility] procedure Hugo Underwood Comment: RE: Appointment Request 05-17-2020 - Patient encounter Shoulder pain Kenia (Genetic Engineer) [facility] [facility] 05-17-2020 procedure Workman Xr [facility] [place] Comment: Acute pain of right shoulder (Primary Dx) Radiology XR 04-30-2020 - Patient encounter Generalized abdominal Us [facility] Wstr R adiology 04-30-2020 procedure pain Mob 1 Comment: Radiology US 06-28-2020 - 06-28-2020 Refill Postoperative pain Mala BOOKER PROVIDER ADULT Comment: Refill Request 06-26-2020 - 06-26-2020 Refill Johnny Mccall [facility] [place] Comment: Refill Request 05-30-2020 Results Only [facility] Provider Marco [facility] Department 05-08-2020 - Subsequent Generalized Johnny Mccall Ambulatory 05-08-2020 hospital visit by abdominal pain [facility] Surgery physician Comment: Generalized abdominal pain [ R10.84] 06-05-2020 - Telemedicine Mala Almendarez [facility] 06-05-2020 consultation with patient 05-24-2020 - Telemedicine Johnny Mccall [facility] 05-24-2020 consultation with [place] patient 06-15-2020 - Telephone encounter Local infection Taty (Internet Marketing Director [facility] 06-15-2020 of wound Genetic Engineer) [facility] DEPARTMENT Comment: Multiple Concerns 05-31-2020 - Telephone encounter Johnnyvivienne Mccall Gastroen terology [place] 05-31-2020 [facility] Comment: Patient Update 05-18-2020 - Telephone Shoulder pain Marcelino Mejia [facility] [place] zacharyne 05-18-2020 encounter [place] Comment: Referral Request 05-07-2020 - Telephone encounter Johnny Mccall Gastroen terology [place] 05-07-2020 [facility] Comment: Patient Update 05-01-2020 - Telephone encounter Johnny Mccall [facility] [place] 05-01-2020 [facility] Comment: Results 04-30-2020 - Telephone encounter Johnny Mccall Gastroen terology [place] 04-30-2020 [facility] Comment: Returning Patient's Call 04-27-2020 - 04-27-2020 Telephone encounter Marcelino Mejia [facility] Comment: Medication request Procedures Procedure Name Date Provider Location Antibody screen 06-11-2020 [facility] ([id number]) Comment: Performed By: #### [id number] ### # [place] [address] CARDIAC 05-30-2020 [facility] ([id number]) Radex shoulder complete minimum 2 05-17-2020 - Kenia (Genetic Engineer) views 05-17-2020 Workman ([id number]) SURGICAL PATHOLOGY 05-08-2020 Johnny Mccall [facility] ([id number]) Colonoscopy flx dx w/collj spec 05-08-2020 [facility] Provider when pfrmd ([id number]) Esophagogastroduodenoscopy 05-08-2020 [facility] Provider [facility] transoral diagnostic ([id number]) Us abdominal real time w/image 04-30-2020 - Johnny Burks [facility] 04-30-2020 [facility] ([id number]) Urinalysis 10-31-2019 [facility] ([id number]) Comment: Result Comment: URINALYSIS Performed By: #### [id number] ## ## [facility],[address] [address] Plan of Treatment Plan Description Date Location DTAP,TDAP,TD (2 - Td) DTAP,TDAP,TD (2 - Td) 05-28-2025 - [facility] 05-28-2025 (02113) INFLUENZA (#1) INFLUENZA (#1) 2020 - 05-15-2020 ([id number]) MAMMOGRAM MAMMOGRAM 2019 - 2019 ([id number]) COLONOSCOPY COLONOSCOPY 1997 - 1997 ([id number]) HEPATITIS C SCREENING HEPATITIS C SCREENING 1997 - [facility] 1997 (39939) HIV SCREENING HIV SCREENING 1997 - 1997 (65614) COLONOSCOPY - COLONOSCOPY - DIAGNOSTIC 05-08-2020 [facility]oscopy Routine (02171) Generalized abdominal pain Loose stools Dyspepsia Gastroesophageal reflux disease, esophagitis presence not specified Other dysphagia History of acute pancreatitis Bloating Nausea and vomiting, intractability of vomiting not specified, unspecified vomiting type 1 Occurrences starting 05/08/2020 until 05/08/2020 Comment: 1 Occurrences starting 05/08 until 05/08/2020 EGD EUS EGD EUS Endoscopy Routine Idiopathic 05-10-2021 (75480) acute pancreatitis, unspecified complication status 1 Occurrences starting 05/10/2020 until 05/10/2021 Comment: 1 Occurrences starting 05/10 until 05/10/2021 EGD EGD Endoscopy Routine Generalized abdominal 04-15 (56581) pain Loose stools Dyspepsia Gastroesophageal reflux disease, esophagitis presence not specified Other dysphagia History of acute pancreatitis Bloating Nausea and vomiting, intractability of vomiting not specified, unspecified vomiting type 1 Occurrences starting 05/08/2020 until 05/08/2020 Comment: 1 Occurrences starting 05/08 until 05/08/2020 MRI ABDOMEN WO/W IVCON MRI ABDOMEN WO/W IVCON 07-05-2021 [facility] ([id number]) Radiology Routine Pancreatic cyst 1 Occurrences starting 06/05/2020 until 07/05/2021 Comment: 1 Occurrences starting 06/05 until 07/05/2021 PRE-PROCEDURE & PRE-PROCEDURE & 05-10-2021 PRE-OPERATIVE COVID PRE-OPERATIVE COVID (65640) Microbiology Routine Idiopathic acute pancreatitis, unspecified complication status 1 Occurrences starting 05/10/2020 until 05/10/2021 Comment: 1 Occurrences starting 05/10 until 05/10/2021 SURGICAL PATHOLOGY SURGICAL PATHOLOGY Lab Routine (84042) 05/08/2020 1:17 PM EDT no information (15910) Immunizations Vaccine Notes Status Date Location Influenza Seasonal influenza, seasonal, (completed) 05-11-2020 - [facility] Inj Age 3+ injectable 05-11-2020 (02702) Influenza Seasonal influenza, seasonal, (completed) 05-31-2019 - C [facility] Inj Age 3+ injectable 05-31-2019 (16556) Pneumovax pneumococcal ([facility]) [facility], 05-19-2017 (441 95) 23 valent Tdap (Age 7+) tetanus toxoid, reduced (completed) 05-28-2015 - [facility] diphtheria toxoid, and 05-28-2015 (4419 5) acellular pertussis vaccine, adsorbed Payers Payer Name Policy Number Location [facility] [id number] [facility]PATIENT ([id number]) [employer] [employer] [id number] [id number] [id number] [id number] [facility] ([id number]) [id number] [facility] ([id number]) [id number] [facility] ([id number]) [id number] [facility] ([id number]) The following information is from the original human readable contentNo Payer Records FoundNo Payer Records FoundNo Payer Records FoundNo Payer Records FoundNo Payer Records FoundNo Payer Records FoundNo Payer Records FoundNo Payer Records FoundNo Payer Records Found Social History Type Social History Date Location Description History of tobacco use Current smoker 01-12-2017 (88087) Alcohol Comment Occasional 11-26-2010 - 11-26-2010 (32885) History of tobacco use Cigarette Smoker 01-12-[address] [facility] (92262) Cigarettes smoked 05-17-2020 - [facility] current (pack per day) 06-08-2020 (49970) - Reported Tobacco use and Never used 05-17-2020 - exposure 06-08-2020 (76081) Alcohol intake Current drinker of 05-17-2020 - [facility] alcohol (finding) 06-08-2020 (24942) Tobacco Comment Approx. 3 cigarettes 03-10-2011 - [facility] daily-1 pack every week 03-10-2011 (56286) Tobacco smoking status Former smoker 05-17-2020 - [facility] 06-08-2020 (53997) Sex Assigned At Not on file (57926) Exposure to SARS-CoV-2 Not sure (event) (33454) History SDOH Financial 5 06-08-2020 - 06-08-2020 (34713) History SDOH Food Worry 1 06-08-2020 - [facility] 06-08-2020 (48362) History SDOH Transport 2 06-08-2020 - Med 06-08-2020 (88765) Exposure to SARS-CoV-2 Yes (event) (73669) The following information is from the original human readable contentNo Social History Records FoundNo Social History Records FoundNo Social History Records FoundNo Social History Records FoundNo Social History Records FoundNo Social History Records FoundNo Social History Records FoundNo Social History Records FoundNo Social History Records FoundNo Social History Records FoundNo Social History Records Found Instructions Patient InstructionsBartolo Kenia (Genetic Engineer) - 05/17/2020 12:23 PM EDTA/P (M25.511) Acute [...] Vargas Date of : 1980 MRN/E #: [id number] Chief Complaint Patient presents with: right shoulder [...] history is provided by the patient. No return clerk was used. PAIN EVALUATION 05/17/2020 1153 Pain [...] Benign liver cyst 05/24/2010 CT scan at [facility] 11/2009 and 04/2010 showe 4 mm increase in size. No pain. No elevated LFTs on 03/11/2010. ? Calculus of kidney 05/17/[address] Nicolas: Hospitalized age 20, and again later -- no procedures so far ([facility], 1995 [facility]) ? Dysmenorrhea ? History of blood transfusion [...] go to the ED. Patient went to [place] ED and mentions 'nothing was done. They [...] note she presented to the ED in [place] in January 2020 for abdominal pain of [address] abdomen was essentially unremarkable including pancreas. Was found to have lipase of 193 on 02/15/2020. Amylase normal. Hepatic function panel. ? Has h/o cholecystectomy in 1998. PAST MEDICAL HISTORY Diagnosis Date ? Allergic rhinitis, cause unspecified 05/17/2008 Spring and summer ? Benign liver cyst 05/24/2010 CT scan at [facility] 11/2009 and 04/2010 showe 4 mm increase in size. No pain. No elevated LFTs on 03/11/2010. ? Calculus of kidney 05/17/[address] Nicolas: Hospitalized age 20, and again later -- no procedures so far ([facility], 1996 [facility]) ? Cancer (HCC) ? Diverticulosis ? Dysmenorrhea [...] the ED yesterday - she went to [place] ED and was told that pancreas levels [...] for nausea. Advised to go to the [facility] ED if no improvement in symptoms. [...] Documents on File Type Date Recorded Patient Lead Based Paint Technician Explanati on Advance Directive(s) 05/08/2020 12:13 PM Documents on File Type Date Recorded Patient Lead Based Paint Technician Explanati on Advance Directive(s) 05/08/2020 12:13 PM Documents on File Type Date Recorded Patient Lead Based Paint Technician Explanati on Advance Directive(s) 05/08/2020 12:13 PM Advance Directive(s) 05/25/2020 7:47 AM Documents on File Type Date Recorded Patient Lead Based Paint Technician Explanati on Advance Directive(s) 05/08/2020 12:13 PM Advance Directive(s) 05/25/2020 7:47 AM Documents on File Type Date Recorded Patient Lead Based Paint Technician Explanati on Advance Directive(s) 05/08/2020 12:13 PM Advance Directive(s) 05/25/2020 7:47 AM Advance Directive(s) 06/08/2020 9:30 AM Documents on File Type Date Recorded Patient Lead Based Paint Technician Explanati on Advance Directive(s) 05/08/2020 12:13 PM Advance Directive(s) 05/25/2020 7:47 AM Advance Directive(s) 06/08/2020 9:30 AM Documents on File Type Date Recorded Patient Lead Based Paint Technician Explanati on Advance Directive(s) 05/08/2020 12:13 PM Advance Directive(s) 05/25/2020 7:47 AM Advance Directive(s) 06/08/2020 9:30 AM Advance Directive(s) 06/19/2020 3:44 PM Documents on File Type Date Recorded Patient Lead Based Paint Technician Explanati on Advance Directive(s) 05/08/2020 12:13 PM [...] 5 Mccall [address] [place] [address] [id number] Phone: Fax: Status Reason Specialty Diagnoses / Referred By Referred To Procedures Contact Contact Authorized PCP Requested Orthopedics Diagnoses Acute shoulder pain, unspecified laterality Marcelino Mejia Referral Procedures CONSULT TO ORTHOPAEDICS NEW PATIENT VISIT LEVEL [address] [place] [address] Status Reason Specialty Diagnoses / Referred By Referred To Procedures Contact Contact Pending Review Auto-Generated MR IMAGING Diagnoses Pancreatic cyst Mala Almendarez Mr Imaging Referral Procedures MRI ABDOMEN WO/W IVCON MRI,ABDOMEN,W&WO CONTRS [address] [facility] [address] [place] [address] Status Reason Specialty Diagnoses / Procedures Referred By Kimmie davis Referred To Contact Closed Diagnoses Post-op pain Mala Almendarez [address] [facility] [address] [place] [address] Phone: Health Concerns Infection Onset Date Last [...] BE BASED ON THE PRIMARY CLINICAL RECORDS. [facility] provides no warranty or guarantee of the accuracy or completeness of information in this document. UNRECOGNIZED CONTENT PROVIDED BELOW FOR UNRECOGNIZED SECTION Source Comments In the event this information is protected by the Federal Confidentiality of Alcohol and Drug Abuse Patient Records regulations: The Federal rules restrict any use of the information to criminally investigate or prosecute any alcohol or drug abuse patient.In the event this information is protected by the Federal Confidentiality of Alcohol and Drug Abuse Patient Records regulations: The Federal rules restrict any use of the information to criminally investigate or prosecute any alcohol or drug abuse patient.In the event this information is protected by the Federal Confidentiality of Alcohol and Drug Abuse Patient Records regulations: The Federal rules restrict any use of the information to criminally investigate or prosecute any alcohol or drug abuse patient.In the event this information is protected by the Federal Confidentiality of Alcohol and Drug Abuse Patient Records regulations: The Federal rules restrict any use of the information to criminally investigate or prosecute any alcohol or drug abuse patient.In the event this information is protected by the Federal Confidentiality of Alcohol and Drug Abuse Patient Records regulations: The Federal rules restrict any use of the information to criminally investigate or prosecute any alcohol or drug abuse patient.In the event this information is protected by the Federal Confidentiality of Alcohol and Drug Abuse Patient Records regulations: The Federal rules restrict any use of the information to criminally investigate or prosecute any alcohol or drug abuse patient.In the event this information is protected by the Federal Confidentiality of Alcohol and Drug Abuse Patient Records regulations: The Federal rules restrict any use of the information to criminally investigate or prosecute any alcohol or drug abuse patient.In the event this information is protected by the Federal Confidentiality of Alcohol and Drug Abuse Patient Records regulations: The Federal rules restrict any use of the information to criminally investigate or prosecute any alcohol or drug abuse patient.In the event this information is protected by the Federal Confidentiality of Alcohol and Drug Abuse Patient Records regulations: The Federal rules restrict any use of the information to criminally investigate or prosecute any alcohol or drug abuse patient.In the event this information is protected by the Federal Confidentiality of Alcohol and Drug Abuse Patient Records regulations: The Federal rules restrict any use of the information to criminally investigate or prosecute any alcohol or drug abuse patient.In the event this information is protected by the Federal Confidentiality of Alcohol and Drug Abuse Patient Records regulations: The Federal rules restrict any use of the information to criminally investigate or prosecute any alcohol or drug abuse patient.In the event this information is protected by the Federal Confidentiality of Alcohol and Drug Abuse Patient Records regulations: The Federal rules restrict any use of the information to criminally investigate or prosecute any alcohol or drug abuse patient.In the event this information is protected by the Federal Confidentiality of Alcohol and Drug Abuse Patient Records regulations: The Federal rules restrict any use of the information to criminally investigate or prosecute any alcohol or drug abuse patient.In the event this information is protected by the Federal Confidentiality of Alcohol and Drug Abuse Patient Records regulations: The Federal rules restrict any use of the information to criminally investigate or prosecute any alcohol or drug abuse patient.In the event this information is protected by the Federal Confidentiality of Alcohol and Drug Abuse Patient Records regulations: The Federal rules restrict any use of the information to criminally investigate or prosecute any alcohol or drug abuse patient.In the event this information is protected by the Federal Confidentiality of Alcohol and Drug Abuse Patient Records regulations: The Federal rules restrict any use of the information to criminally investigate or prosecute any alcohol or drug abuse patient.In the event this information is protected by the Federal Confidentiality of Alcohol and Drug Abuse Patient Records regulations: The Federal rules restrict any use of the information to criminally investigate or prosecute any alcohol or drug abuse patient.In the event this information is protected by the Federal Confidentiality of Alcohol and Drug Abuse Patient Records regulations: The Federal rules restrict any use of the information to criminally investigate or prosecute any alcohol or drug abuse patient.In the event this information is protected by the Federal Confidentiality of Alcohol and Drug Abuse Patient Records regulations: The Federal rules restrict any use of the information to criminally investigate or prosecute any alcohol or drug abuse patient.In the event this information is protected by the Federal Confidentiality of Alcohol and Drug Abuse Patient Records regulations: The Federal rules restrict any use of the information to criminally investigate or prosecute any alcohol or drug abuse patient.In the event this information is protected by the Federal Confidentiality of Alcohol and Drug Abuse Patient Records regulations: The Federal rules restrict any use of the information to criminally investigate or prosecute any alcohol or drug abuse patient.In the event this information is protected by the Federal Confidentiality of Alcohol and Drug Abuse Patient Records regulations: The Federal rules restrict any use of the information to criminally investigate or prosecute any alcohol or drug abuse patient.In the event this information is protected by the Federal Confidentiality of Alcohol and Drug Abuse Patient Records regulations: The Federal rules restrict any use of the information to criminally investigate or prosecute any alcohol or drug abuse patient.In the event this information is protected by the Federal Confidentiality of Alcohol and Drug Abuse Patient Records regulations: The Federal rules restrict any use of the information to criminally investigate or prosecute any alcohol or drug abuse patient.In the event this information is protected by the Federal Confidentiality of Alcohol and Drug Abuse Patient Records regulations: The Federal rules restrict any use of the information to criminally investigate or prosecute any alcohol or drug abuse patient. UNRECOGNIZED CONTENT PROVIDED BELOW FOR UNRECOGNIZED SECTION [...] dyspepsia,gerd,dysphagia 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, didn't have a hog driver Johnny Winn, Johnny ENDOSCOPY Procedures COLONOSCOP W/ OR W/O BRSH SPEC EGD W/O OR W/BRUSH/WASH COLONOSCOPY W/EGD Cal Mccall [address] [place], [place] [address] Phone: [place], [place] [phone] Fax: Reason Onset Date Comments Patient [...] CREATED AUTHOR AUTHOR'S ORGANIZATIO N 10/21/2019 [facility] DATE CREATED AUTHOR AUTHOR'S ORGANIZATIO N 04/06/2020 [facility] DATE CREATED AUTHOR AUTHOR'S ORGANIZATIO N 02/26/2020 [facility] ([place]) DATE CREATED AUTHOR AUTHOR'S ORGANIZATIO N 06/21/2020 [facility] DATE CREATED AUTHOR AUTHOR'S ORGANIZATIO N 06/27/2020 [facility] DATE CREATED AUTHOR AUTHOR'S ORGANIZATIO N 06/28/2020 [facility] UNRECOGNIZED CONTENT PROVIDED BELOW FOR [...] pcp would send Rx for phenergan to [facility]. Reports she's had nausea for weeks. [...] panel was not drawn, left message with [facility] to contact patient for redraw Pierce [...] or do not improve. Taty Perea APRN CARRIAGE SETTER documented in this encounterTelephone Encounter - Narcisa [...]
== END 2020-02-20 15:49 | disposition home or self-care (01) ==
PROVIDERS: Emergency Provider Emergency Medicine; PCP Family Medicine
DX: K85.90 Acute pancreatitis without necrosis or infection, unspecified (principal); Z72.0 Tobacco use
CPT/HCPCS: 80053; 81001; 83690; 85025; 96374; 96375; 99284; A4216; J2405

== ENCOUNTER 2020-03-26 17:00 | Emergency (ER) | payer MEDICAID, SELFPAY ==
[2020-03-26 17:04] VITALS: BP 126/111; PULSE 89; PULSE 93; RESP 17; RESP 20; TEMP 36.4; O2SAT 96; O2SAT 98; BMI 36.0
--- NOTE | 2020-03-26 17:19 | CT_ITS ---
STUDY: CT BRAIN WITHOUT CONTRAST REASON FOR EXAM: Female, 39 years old. MIGRAINE X 4 DAYS -- HX:MIGRAINES.UTERINE CANCER WITH MICHELINE/BSO,BIPOLAR RADIATION DOSAGE (If Supplied By Facility): CTDIvol = ( 44.99 ) mGy, DLP = ( 745.49 ) mGycm TECHNIQUE: Transaxial CT imaging of the brain was performed without administration of intravenous contrast material. Individualized dose optimization techniques were used for this CT. COMPARISON: No relevant priors. FINDINGS: Normal soft tissue structures. Normal calvarium. Normal size ventricles and extra-axial spaces for the patient''s age. Normal white matter tracts of the cerebral hemispheres. Normal basal ganglia and thalami. Normal brainstem. Normal cerebellum. Empty sella deformity of uncertain clinical significance There is no intracranial hemorrhage. There are no findings of an acute ischemic infarction. Normal visualized paranasal sinuses. CT/Brain/Head without Contrast IMPRESSION: Empty sella deformity of uncertain clinical significance.. No evidence for obstructive hydrocephalus mass or acute bleed. Electronically Signed: Marcelino Ahmadi MD at 18:38 EDT , Service support ,
--- NOTE | 2020-03-26 17:36 | ED.VIS.GEN ---
History of Present Illness Chief Complaint: Headache Informant: Patient Current Severity: Severe Maximum Severity: Severe Narrative: 39-year-old female with history of migraines presents with headache. She states he has been taking her medications as prescribed from her neurologist and her headache seems to be waxing and waning and more severe than usual. She states that she initially was ordered an MRI however she was unable to make this appointment because she does not have a ride. She is here today because her headache is worse. She states she had one episode of nausea vomiting. This is consistent with her previous migraine. It was not acute onset. Past Medical History - Allergies and Home Meds Allergies/Adverse Reactions: Allergies ketorolac tromethamine [From Toradol] Allergy (Verified 03/26/20 17:02) Rash metronidazole [From Flagyl] Allergy (Verified 03/26/20 17:02) Hives Penicillins Allergy (Verified 03/26/20 17:02) Hives aspirin Adverse Reaction (Verified 03/26/20 17:02) Upset Stomach CT DYE Allergy (Uncoded 03/26/20 17:16) Anaphylaxis IV contrast Allergy (Uncoded 03/26/20 17:16) Anaphylaxis Primary Care Physician: Marcelino Albert MD [Primary Care Provider] - Prior records reviewed: Yes Surgical History: cholecystectomy, hysterectomy, - - Oophorectomy Smoking Status: Former smoker Alcohol: None Drugs: None Review of Systems General: Denies: Chills, Fever ENT: Denies: Rhinorrhea, Sore throat Cardiovascular: Denies: Chest pain, Palpitations Respiratory: Denies: Dyspnea, Cough, Dyspnea on exertion Gastrointestinal: Reports: Nausea, Vomiting Genitourinary: Denies: Dysuria, Hematuria, Frequency Musculoskeletal: Denies: Back pain, Extremity Pain Skin: Denies: Rash, Wounds Neurological: Reports: Headache. Denies: Parasthesia, Numbness Psych: Denies: Depression, Anxiety Allergy: Denies: Uticaria Physical Exam Vital Signs/Narrative: Vital Signs Temp Pulse Resp BP Pulse Ox 03/26/20 17:04 97.6 F L 89 20 H 126/111 H 98 General: Well nourished, Well developed Head: Normocephalic, Atraumatic Eyes: Perrl, EOMI ENT: Moist mucous membranes, No rhinorrhea Cardiovascular: Regular rate, Regular rhythm Respiratory: No distress, CTA bilaterally Abdomen: Soft Extremities: Nontender Skin: Normal color, No rash Neurological: Alert, Oriented x3, Cranial nerves II-XII grossly intact, Normal Strength, Normal Sensation Psychological: Normal affect Diagnostic/Tx/Re-eval - Medical Decision Making She presents with migraine and has history of migraines. She states she had had a CT of her brain in a while and she is had persistent headache for 5 days I did perform a CT today. States that she has an empty sella. Was unsure of the significance of this so I consulted neurology who did a teleconference with her. They did not believe that you could appropriately identify an empty sella on a CT. They evaluated her and felt that she just had intractable migraine and they put her on Imitrex 100 mg p.o. twice daily for 5 days. She was happy with this. In the ER she was treated with Reglan and Benadryl. She is discharged home in stable condition ED Disposition - Plan for ED Patient: Disposition: Home or Assisted Living Diagnosis: Headache Instructions: ED Headache Unspecified Prescriptions: Sumatriptan Succinate [Imitrex] 100 mg PO BID PRN #10 tab PRN Reason: Headache Prescription Printed Referrals: Marcelino Albert MD [Primary Care Provider] -
--- NOTE | 2020-03-26 18:02 | CM.ED ---
Social Work Consult: Active ED Care Plan Informant: Self Referral Met with patient in room. Patient familiar with this social media project manager and services. Patient reports things have been good. Patient states main issue is limited transportation. Patient states that insurance does not currently have transportation due to COVID-19 pandemic and patient does not have support in community for transportation. Patient aware of transportation program through [employer] and states to already utilize this service. Patient states to have canceled so many appointments with pain management due to transportation that patient is now discontinued from services there. Patient states to have also had an MRI scheduled and to have had to miss that due to transportation as well. This social media project manager inquiring as to how patient got to the ED today. Patient states my friend Ryland. Patient states that Ryland is old and not able to always provide transportation. Patient states that significant other does not have a car. This social media project manager encouraged patient to keep reaching out to friends for assistance and to keep checking back with insurance for transportation. This social media project manager inquiring about patient mental health. Patient states the Zoloft really helps. Patient states no concerns for mental health and things have been good. Patient denies any active suicidal thoughts/plans/intents. Patient states to be scheduled to have a tooth pulled tomorrow and to have transportation to this appointment. Patient voicing no concerns outside of current Migraine. Patient states to have been in close communication with patient PCP, Dr. Albert on current Migraine and pain management update. Support provided. Marcela KIRKLAND, ETIENNE
[2020-03-26] MEDS: Metoclopramide 10 MG/2 ML Vial IV (18:14)
[2020-03-26] MEDS: DiphenhydrAMINE 50 MG/ML Syringe 25 MG IV (18:16)
[2020-03-26 19:58] VITALS: BP 139/98; PULSE 71; RESP 16; O2SAT 100
== END 2020-03-26 21:00 | disposition home or self-care (01) ==
PROVIDERS: Emergency Provider Student in an Organized Health Care Education/Training Program; PCP Family Medicine
DX: R51 Headache (principal); C55 Malignant neoplasm of uterus, part unspecified; Z87.891 Personal history of nicotine dependence; Z88.0 Allergy status to penicillin; Z88.1 Allergy status to other antibiotic agents; Z88.6 Allergy status to analgesic agent; Z88.8 Allergy status to other drugs, medicaments and biological substances; Z90.49 Acquired absence of other specified parts of digestive tract; Z90.710 Acquired absence of both cervix and uterus
CPT/HCPCS: 70450; 99283; J7040; A4216

== ENCOUNTER → 2020-03-28 22:49 | Outpatient (REF) | payer MEDICAID, SELFPAY ==
[2020-03-26 17:04] VITALS: BMI 36.0
== END ==
LOC: ED 22:49
PROVIDERS: PCP Family Medicine
DX: R11.2 Nausea with vomiting, unspecified (principal); R51 Headache

== ENCOUNTER 2020-04-12 17:26 | Emergency (ER) | payer MEDICAID, SELFPAY ==
[2020-04-12 17:27] VITALS: BP 125/66; PULSE 92; RESP 18; TEMP 36.8; O2SAT 97; O2SAT 98; BMI 38.6
--- NOTE | 2020-04-12 17:42 | CM.ED ---
SOCIAL WORK Reason for Consult: Active ED Care Plan Collaboration with Dr. Corado regarding ED Care Plan. Care Plan reviewed with Dr. Corado. This worker to remain available for needs. Shana Cochran, MASTER LAY OUT SPECIALIST, ACOUSTICAL LOGGING ENGINEER
--- NOTE | 2020-04-12 17:53 | ED.VISSUMM ---
- ER Visit Summary Date of Service: 04/12/20 Chief Complaint: Abdominal pain History of Present Illness: The patient is a 39 F presenting with abdominal pain. Patient states this started this morning. She has pain in the right upper quadrant. She has had nausea, vomiting, diarrhea since yesterday. She has history of previous pancreatitis and states this feels similar. She has a history of previous cholecystectomy and hysterectomy. She denies fever or other complaints. Physical Examination: Vitals are stable. Patient is afebrile. Alert no acute distress. HEENT exam is unremarkable. Neck is supple. Lungs are clear and equal bilaterally. Heart is regular rate and rhythm. Abdomen is soft right upper quadrant tenderness with no guarding or rebound Extremities are unremarkable. Skin is warm and dry. Remainder of exam is unremarkable. Emergency Department Course and Treatment: Patient has a care plan. She was given Zofran, Bentyl. Chemistries unremarkable other than alk phos 128. Lipase is 215. Urinalysis shows 0-5 white blood cells, 25-50 epithelial cells. On reevaluation, patient is resting comfortably. She will be discharged and advised follow-up with her primary care physician. Advised return to ED for worsening complaints. Disposition: Discharge home Impression: Abdominal pain This note was generated with [employer] dictation software. It may contain incorrect words, spelling, and punctuation that were not noted in review of the chart prior to signing ED Disposition - Plan for ED Patient: Instructions: ED Abdominal Pain Unkn Cause Fem Referrals: Marcelino Albert MD [Primary Care Provider] -
[2020-04-12 18:35] LABS: Mucous, Urine 0 SEEN /hpf (<or=2+); Red Blood Cells-Urine 0 SEEN /hpf (0-5)
[2020-04-12 18:43] LABS: Color, Urine Yellow (Yellow); Glucose, Dipstick Normal (Normal); Ketone-Dipstick Negative (Negative); Leukocyte Esterase-Dipstick 25 /ul (Negative); Nitrite-Dipstick Negative (Negative); Occult Blood-Urine 50 /ul (Negative); Protein-Dipstick Negative (Negative); Specific Gravity, Urine 1.025 (1.002-1.030); Urine Bilirubin Dipstick Negative (Negative); Urine Clarity Sl. Cloudy (Clear); Urine Urobilinogen Normal (Normal)
[2020-04-12 18:49] LABS: Bacteria 1+ /hpf (None Seen); Squamous Epithelial Cells - UA 25-50 SEEN /hpf (5-10); White Blood Cells 0-5 SEEN /hpf (0-5)
[2020-04-12] MEDS: Ondansetron ODT 4 MG Tablet PO (18:53)
[2020-04-12] MEDS: Dicyclomine 10 MG Capsule 20 MG PO (18:53)
[2020-04-12 18:57] LABS: ALB/GLOB Ratio 1.1 RATIO (0.9-2.4); AST(SGOT) 23 U/L (15-37); Alanine Aminotransfer ALT/SGPT 34 U/L (13-56); Albumin, Serum 3.9 g/dL (3.2-5.0); Alkaline Phosphatase 128 U/L (45-117); Anion Gap 3 (5-15); BUN 11 mg/dL (7-18); BUN/Creat Ratio 12.4 RATIO (10-20); Calcium,Total 8.5 mg/dL (8.5-10.1); Chloride 112 mmol/L (98-107); Creatinine, Serum 0.89 mg/dL (0.55-1.02); EST Glomerular Filtration Rate 74 mL/min (>60); Est Glom Filt Rate - Afr Amer 90 mL/min (>60); Estimated Creatinine Clearance 63.41 ml/min; Globulin 3.6 g/dL (2.2-4.2); Glucose 104 mg/dL (74-106); Lipase 215 U/L (73-393); Potassium 3.9 mmol/L (3.5-5.1); Protein, Total 7.5 g/dL (6.4-8.2); Sodium Level 141 mmol/L (136-145)
[2020-04-12 19:41] LABS: Absolute Lymphocyte Count 2.31 X10^3/uL (0.83-4.51); Absolute Neutrophil Count 3.1 X10^3/uL (2.0-7.7); Basophil# 0.04 X10^3/uL; Basophil% 0.6 % (0-1); Eosinophil# 0.26 X10^3/uL; Eosinophils% 4.2 % (0-5); Hematocrit 34.8 % (37-47); Hemoglobin 10.7 g/dL (12.0-15.0); Lymphocyte # 2.31 X10^3/ul (4.0); Lymphocyte % 37.1 % (19-41); Mean Corp Hgb Conc 30.7 g/dL (32-36); Mean Corpuscular Hgb 29.4 pg (27.0-32.0); Mean Corpuscular Volume 95.6 fL (81-99); Mean Platelet Vol. 10.7 fl (6.2-12.0); Monocyte# 0.43 X10^3/uL; Monocyte% 6.9 % (0-10); NRBC Flagged by Analyzer 0 % (0-5); Neutrophil # 3.05 X10^3/uL (2.7-7.7); Platelet Count 190 K/mm3 (150-450); RBC Distribution Width CV 14.6 % (11.6-14.6); RBC Distribution Width SD 50.7 fl (35.1-43.9); Red Blood Count 3.64 M/mm3 (4.2-5.4); White Blood Count 6.2 K/mm3 (4.4-11.0)
[2020-04-12 20:04] VITALS: RESP 18
--- NOTE | 2020-04-12 20:41 | ED.DEP ---
ED Disposition - Plan for ED Patient: Instructions: ED Abdominal Pain Unkn Cause Fem Referrals: Marcelino Albert MD [Primary Care Provider] -
[2020-04-12 20:49] VITALS: RESP 18
== END 2020-04-12 20:50 | disposition home or self-care (01) ==
LOC: ED 18:17
PROVIDERS: Emergency Provider Emergency Medicine; PCP Family Medicine
DX: R10.9 Unspecified abdominal pain (principal); R11.2 Nausea with vomiting, unspecified; R19.7 Diarrhea, unspecified; Z90.49 Acquired absence of other specified parts of digestive tract; Z90.710 Acquired absence of both cervix and uterus
CPT/HCPCS: 80053; 81001; 83690; 85025; 96361; 96372; 96374; 99285; A4216

== ENCOUNTER 2020-04-27 15:19 | Emergency (ER) | payer MEDICAID, SELFPAY ==
[2020-04-27 15:20] VITALS: BP 127/89; PULSE 95; RESP 17; TEMP 36.9; O2SAT 97; BMI 37.5
--- NOTE | 2020-04-27 15:38 | ED.VIS.GI ---
History of Present Illness Chief Complaint: Abd Pain Informant: Patient - Abdominal Pain/Flank Pain Onset: Days - 3 days Context: Gradual Onset Timing: Continuous Quality: Cramping Location: Diffuse Current Severity: Moderate Maximum Severity: Severe Worsened by: Food Relieved by: Nothing - Nausea/Vomiting/Emesis GI Symptom: Nausea, Vomiting Onset: Today Quality: Nonbilious. Negative for: Blood streaks, Coffee ground, Hematemesis Severity: Mild Episodes: 1 - Diarrhea/Melena/Hematochezia GI Symptom: Diarrhea Onset: Today Stool Quality: Loose, Watery. Negative for: Mucous, Black, Maroon, JOSH per rectum Severity: Mild Episodes: 1 Associated Symptoms: Negative for: Dysuria, Frequency, Hematuria, Urgency Narrative: 39-year-old female history of chronic abdominal pain presents to the emergency department with abdominal pain nausea and vomiting and diarrhea. Currently admits to work-up as an outpatient by her winter intern through [facility] for possible celiac disease. She has a history of chronic pancreatitis as well. Her winter intern earlier this week scheduled her for an endoscopy and colonoscopy which is in about 10 days. She states that she was also prescribed Flagyl but her insurance did not cover it and therefore she was unable to get this filled. She also ran out of her Phenergan which is contributing to her nausea and vomiting. She has not had a fever. She has no urinary symptoms. She denies any coffee-ground emesis hematemesis or melena or hematochezia. Prior similar symptoms: Yes Recent Illness/Hospitalization: No Past Medical History - Allergies and Home Meds Allergies/Adverse Reactions: Allergies ketorolac tromethamine [From Toradol] Allergy (Verified 04/27/20 15:20) Rash metronidazole [From Flagyl] Allergy (Verified 04/27/20 15:20) Hives Penicillins Allergy (Verified 04/27/20 15:20) Hives aspirin Adverse Reaction (Verified 04/27/20 15:20) Upset Stomach CT DYE Allergy (Uncoded 04/27/20 15:20) Anaphylaxis IV contrast Allergy (Uncoded 04/27/20 15:20) Anaphylaxis Primary Care Physician: Marcelino Albert MD [Primary Care Provider] - Prior records reviewed: Yes Past Medical History: - - Chronic abdominal pain, chronic pancreatitis, peptic ulcer disease, anxiety and depression Surgical History: cholecystectomy, hysterectomy, - - Oophorectomy Lives: With Family Smoking Status: Former smoker Alcohol: None Drugs: None Review of Systems All systems negative except as indicated General: Denies: Chills, Fever, Sweats Eyes: Denies: Visual changes - bilaterally, Diplopia ENT: Denies: Rhinorrhea, Sore throat Cardiovascular: Denies: Chest pain, Palpitations Respiratory: Denies: Dyspnea, Cough, Dyspnea on exertion Gastrointestinal: Reports: Abdominal pain, Nausea, Vomiting, Diarrhea. Denies: Constipation, Melena, Hematochezia Genitourinary: Denies: Dysuria, Hematuria, Frequency Musculoskeletal: Denies: Back pain, Extremity Pain Skin: Denies: Rash, Wounds Neurological: Denies: Headache, Weakness, Numbness Physical Exam Vital Signs/Narrative: Vital Signs Temp Pulse Resp BP Pulse Ox 04/27/20 15:20 98.4 F 95 17 127/89 H 97 Inital Vital Signs reviewed: Yes General: Well nourished, Well developed, No Acute Distress Head: Normocephalic, Atraumatic Eyes: Perrl, EOMI ENT: Moist mucous membranes, No rhinorrhea Neck: Supple, Nontender Cardiovascular: Regular rate, Regular rhythm, No murmurs Respiratory: No distress, CTA bilaterally, Chest nontender Abdomen: Soft, Nontender, Nondistended, Normal bowel sounds Back: Nontender, Normal Inspection Extremities: Nontender, No edema Skin: Normal color, No rash Neurological: Alert, Oriented x3, Cranial nerves II-XII grossly intact, Normal Strength, Normal Sensation Psychological: Normal affect, Normal Mood Diagnostic/Tx/Re-eval Laboratory Tests 04/27/20 04/27/20 04/27/20 Range/Units 15:52 15:52 15:52 WBC 6.9 (4.4-11.0) K/mm3 RBC 3.85 L (4.2-5.4) M/mm3 Hgb 11.0 L (12.0-15.0) g/dL Hct 36.2 L (37-47) % MCV 94.0 (81-99) fL MCH 28.6 (27.0-32.0) pg MCHC 30.4 L (32-36) g/dL RDW Std Deviation 50.1 H (35.1-43.9) fl RDW Coeff of Shun 14.6 (11.6-14.6) % Plt Count 203 (150-450) K/mm3 MPV 10.2 (6.2-12.0) fl Immature Gran % (Auto) 2.500 H (0.0-0.9) % Neut % (Auto) 46.7 L (47-70) % Lymph % (Auto) 40.3 (19-41) % [place] % (Auto) 6.7 (0-10) % Eos % (Auto) 3.1 (0-5) % Baso % (Auto) 0.7 (0-1) % Absolute Neuts (auto) 3.2 (2.0-7.7) X10^3/uL Absolute Lymphs (auto) 2.77 (0.83-4.51) X10^3/uL Nucleated RBC % 0 (0-5) % Sodium 140 (136-145) mmol/L Potassium 3.6 (3.5-5.1) mmol/L Chloride 107 (98-107) mmol/L Carbon Dioxide 28.0 (21.0-32.0) mmol/L Anion Gap 5 (5-15) BUN 11 (7-18) mg/dL Creatinine 0.92 (0.55-1.02) mg/dL Estim Creat Clear Calc 61.34 ml/min Est GFR (MDRD) Af Amer 87 (>60) mL/min Est GFR (MDRD) Non-Af 72 (>60) mL/min BUN/Creatinine Ratio 12.0 (10-20) RATIO Glucose 93 (74-106) mg/dL Calcium 9.1 (8.5-10.1) mg/dL Total Bilirubin 0.60 (0.20-1.00) mg/dL AST 16 (15-37) U/L ALT 28 (13-56) U/L Alkaline Phosphatase 120 H (45-117) U/L Total Protein 8.1 (6.4-8.2) g/dL Albumin 4.3 (3.2-5.0) g/dL Globulin 3.8 (2.2-4.2) g/dL Albumin/Globulin Ratio 1.1 (0.9-2.4) RATIO Lipase 106 (73-393) U/L Urine Color Yellow (Yellow) Urine Clarity Cloudy (Clear) Urine pH 6.0 (5.0 - 8.0) Ur Specific [place] 1.020 (1.002-1.030) Urine Protein Negative (Negative) mg/dl Urine Glucose (UA) Normal (Normal) mg/dl Urine Ketones Negative (Negative) mg/dl Urine Occult Blood 10 H (Negative) /ul Urine Nitrite Negative (Negative) Urine Bilirubin Negative (Negative) mg/dL Urine Urobilinogen Normal (Normal) mg/dl Ur Leukocyte Esterase 25 H (Negative) /ul Urine RBC 0 SEEN (0-5) /hpf Urine WBC 0-5 SEEN (0-5) /hpf Ur Squamous Epith Cells 25-50 SEEN (5-10) /hpf Urine Bacteria 2+ (None Seen) /hpf Urine Mucus 0 SEEN (<or=2+) /hpf - Medical Decision Making Patient was treated with fluids IV Phenergan and oral Bentyl. CBC, CMP, lipase were obtained all are unremarkable. Urinalysis unremarkable as well. Repeat exam the patient was continuing to complain of pain. She does have chronic abdominal pain. Her abdomen is soft and nontender. Patient is tolerating by mouth. I will give her 1 Percocet here. I encouraged her to follow-up as scheduled next week for her outpatient gastroenterologic work-up. I do not feel she needs imaging at this time. She will be discharged with return precautions ED Disposition - Plan for ED Patient: Disposition: Home or Assisted Living Diagnosis: Abdominal pain, PUD (peptic ulcer disease) Instructions: ED Abdominal Pain Unkn Cause Fem Prescriptions: Oxycodone HCl/Acetaminophen [Percocet 5/325] 1 tab PO Q6H PRN PRN 3 Days #12 tab PRN Reason: Pain Prescription Printed proMETHazine tablet [Phenergan] 25 mg PO Q6H PRN PRN #10 tab PRN Reason: Nausea Prescription Printed Referrals: Marcelino Albert MD [Primary Care Provider] - Additional Instructions: Follow-up as scheduled with Dr. Young your GI Doctor
[2020-04-27] MEDS: 0.9% Normal Saline 1,000 ML 1000 ML IV (15:59)
[2020-04-27] MEDS: proMETHazine 25 MG/ML Syringe 12.5 MG IV (15:59)
[2020-04-27 16:06] LABS: Mucous, Urine 0 SEEN /hpf (<or=2+); Red Blood Cells-Urine 0 SEEN /hpf (0-5)
[2020-04-27 16:16] LABS: Absolute Lymphocyte Count 2.77 X10^3/uL (0.83-4.51); Absolute Neutrophil Count 3.2 X10^3/uL (2.0-7.7); Basophil# 0.05 X10^3/uL; Basophil% 0.7 % (0-1); Eosinophil# 0.21 X10^3/uL; Eosinophils% 3.1 % (0-5); Hematocrit 36.2 % (37-47); Lymphocyte # 2.77 X10^3/ul (4.0); Lymphocyte % 40.3 % (19-41); Mean Corp Hgb Conc 30.4 g/dL (32-36); Mean Corpuscular Hgb 28.6 pg (27.0-32.0); Mean Platelet Vol. 10.2 fl (6.2-12.0); Monocyte# 0.46 X10^3/uL; Monocyte% 6.7 % (0-10); NRBC Flagged by Analyzer 0 % (0-5); Neutrophil # 3.22 X10^3/uL (2.7-7.7); Neutrophil % 46.7 % (47-70); Platelet Count 203 K/mm3 (150-450); RBC Distribution Width CV 14.6 % (11.6-14.6); RBC Distribution Width SD 50.1 fl (35.1-43.9); Red Blood Count 3.85 M/mm3 (4.2-5.4); White Blood Count 6.9 K/mm3 (4.4-11.0)
[2020-04-27 16:28] LABS: ALB/GLOB Ratio 1.1 RATIO (0.9-2.4); AST(SGOT) 16 U/L (15-37); Alanine Aminotransfer ALT/SGPT 28 U/L (13-56); Albumin, Serum 4.3 g/dL (3.2-5.0); Alkaline Phosphatase 120 U/L (45-117); Anion Gap 5 (5-15); BUN 11 mg/dL (7-18); Calcium,Total 9.1 mg/dL (8.5-10.1); Chloride 107 mmol/L (98-107); Creatinine, Serum 0.92 mg/dL (0.55-1.02); EST Glomerular Filtration Rate 72 mL/min (>60); Est Glom Filt Rate - Afr Amer 87 mL/min (>60); Estimated Creatinine Clearance 61.34 ml/min; Globulin 3.8 g/dL (2.2-4.2); Glucose 93 mg/dL (74-106); Lipase 106 U/L (73-393); Potassium 3.6 mmol/L (3.5-5.1); Protein, Total 8.1 g/dL (6.4-8.2); Sodium Level 140 mmol/L (136-145)
[2020-04-27 16:39] LABS: Color, Urine Yellow (Yellow); Glucose, Dipstick Normal (Normal); Ketone-Dipstick Negative (Negative); Leukocyte Esterase-Dipstick 25 /ul (Negative); Nitrite-Dipstick Negative (Negative); Occult Blood-Urine 10 /ul (Negative); Protein-Dipstick Negative (Negative); Urine Bilirubin Dipstick Negative (Negative); Urine Clarity Cloudy (Clear); Urine Urobilinogen Normal (Normal)
[2020-04-27 16:45] LABS: Squamous Epithelial Cells - UA 25-50 SEEN /hpf (5-10)
[2020-04-27 16:46] LABS: White Blood Cells 0-5 SEEN /hpf (0-5)
[2020-04-27 16:47] LABS: Bacteria 2+ /hpf (None Seen)
[2020-04-27 17:09] VITALS: BP 121/74; PULSE 62; RESP 15; O2SAT 98
== END 2020-04-27 17:09 | disposition home or self-care (01) ==
PROVIDERS: Emergency Provider Physician Assistant Medical; PCP Family Medicine
DX: K27.9 Peptic ulcer, site unspecified, unspecified as acute or chronic, without hemorrhage or perforation (principal); R10.9 Unspecified abdominal pain; F32.9 Major depressive disorder, single episode, unspecified; F41.9 Anxiety disorder, unspecified; G89.29 Other chronic pain; Z87.891 Personal history of nicotine dependence; Z88.0 Allergy status to penicillin; Z88.1 Allergy status to other antibiotic agents; Z88.6 Allergy status to analgesic agent; Z88.8 Allergy status to other drugs, medicaments and biological substances; Z90.49 Acquired absence of other specified parts of digestive tract; Z90.710 Acquired absence of both cervix and uterus; Z87.19 Personal history of other diseases of the digestive system
CPT/HCPCS: 80053; 81001; 83690; 85025; 96361; 96374; 99284; J7030; A4216

== ENCOUNTER 2020-05-23 15:33 | Emergency (ER) | payer MEDICAID, SELFPAY ==
[2020-05-23 15:35] VITALS: BP 124/107; PULSE 88; RESP 20; TEMP 36.9; O2SAT 97; BMI 37.2
--- NOTE | 2020-05-23 16:20 | ED.DCSUM_ITS ---
- ER Visit Summary Date of Service: 05/23/20 Chief Complaint: Right upper quadrant pain History of Present Illness: The patient is a 39 F presenting with right upper quadrant pain x2 days. She states pain has been intermittent. She has associated nausea, vomiting, diarrhea. She denies fever. She had a CT scan showing a liver cyst ordered by her GI physician. She was referred to surgery and this appointment is scheduled for June 05. She is also scheduled to have an endoscopy next week. She has history of pancreatitis. History of previous cholecystectomy and hysterectomy. Physical Examination: Vitals are stable. Patient is afebrile. Alert no acute distress. HEENT exam is unremarkable. Neck is supple. Lungs are clear and equal bilaterally. Heart is regular rate and rhythm. Abdomen is soft right upper quadrant tenderness with no guarding or rebound Extremities are unremarkable. Skin is warm and dry. No focal neurologic deficit. Remainder of exam is unremarkable. Emergency Department Course and Treatment: Patient has a care plan. She was given IV fluids and Zofran. CBC, chemistries unremarkable. Liver lipase normal. On reevaluation, patient is resting comfortably. She declined Bentyl or Tylenol. She is allergic to Toradol and has a care plan in place. She will follow-up with her GI physician. She is advised return to ED for worsening complaints. Disposition: Discharge home Impression: Abdominal pain This note was generated with [employer] dictation software. It may contain incorrect words, spelling, and punctuation that were not noted in review of the chart prior to signing ED Disposition - Plan for ED Patient: Instructions: ED Abdominal Pain Unkn Cause Fem Referrals: Marcelino Albert MD [Primary Care Provider] -
[2020-05-23] MEDS: Ondansetron 4 MG/2 ML Vial IV (16:26)
[2020-05-23] MEDS: 0.9% Normal Saline 1,000 ML 1000 ML IV (16:26)
[2020-05-23 16:35] LABS: Absolute Lymphocyte Count 4.05 X10^3/uL (0.83-4.51); Basophil# 0.07 X10^3/uL; Basophil% 0.8 % (0-1); Eosinophil# 0.29 X10^3/uL; Eosinophils% 3.2 % (0-5); Hematocrit 38.3 % (37-47); Hemoglobin 12.2 g/dL (12.0-15.0); Lymphocyte # 4.05 X10^3/ul (4.0); Lymphocyte % 45.2 % (19-41); Mean Corp Hgb Conc 31.9 g/dL (32-36); Mean Corpuscular Hgb 29.5 pg (27.0-32.0); Mean Corpuscular Volume 92.5 fL (81-99); Mean Platelet Vol. 10.5 fl (6.2-12.0); Monocyte# 0.44 X10^3/uL; Monocyte% 4.9 % (0-10); NRBC Flagged by Analyzer 0 % (0-5); Neutrophil # 4.02 X10^3/uL (2.7-7.7); Neutrophil % 44.9 % (47-70); Platelet Count 232 K/mm3 (150-450); RBC Distribution Width CV 13.5 % (11.6-14.6); RBC Distribution Width SD 45.3 fl (35.1-43.9); Red Blood Count 4.14 M/mm3 (4.2-5.4)
--- NOTE | 2020-05-23 16:36 | CM.ED ---
SOCIAL WORK Reason for Consult: Active ED Care Plan ED Care Plan reviewed with Dr. Corado. Met with patient in room. Discussed ED Care Plan and reason for visit. Patient voices understanding that pain medication will not be given unless needed by determination from physician identifying acute and verifiable pain. Patient voices no questions at this time. Shana Cochran, CENTRAL OFFICE TROUBLE SHOOTER, IMAGE SCIENTIST
[2020-05-23 17:01] LABS: AST(SGOT) 17 U/L (15-37); Alanine Aminotransfer ALT/SGPT 19 U/L (13-56); Albumin, Serum 4.2 g/dL (3.2-5.0); Alkaline Phosphatase 110 U/L (45-117); Anion Gap 4 (5-15); BUN 13 mg/dL (7-18); BUN/Creat Ratio 13.3 RATIO (10-20); Chloride 109 mmol/L (98-107); Creatinine, Serum 0.97 mg/dL (0.55-1.02); EST Glomerular Filtration Rate 67 mL/min (>60); Est Glom Filt Rate - Afr Amer 81 mL/min (>60); Estimated Creatinine Clearance 58.18 ml/min; Glucose 103 mg/dL (74-106); Lipase 125 U/L (73-393); Potassium 3.8 mmol/L (3.5-5.1); Protein, Total 8.2 g/dL (6.4-8.2); Sodium Level 139 mmol/L (136-145)
--- NOTE | 2020-05-23 17:32 | ED.DEP ---
ED Disposition - Plan for ED Patient: Instructions: ED Abdominal Pain Unkn Cause Fem Referrals: Marcelino Albert MD [Primary Care Provider] -
== END 2020-05-23 17:56 | disposition home or self-care (01) ==
LOC: ED 16:34
PROVIDERS: Emergency Provider Emergency Medicine; PCP Family Medicine
DX: R10.11 Right upper quadrant pain (principal); Z87.19 Personal history of other diseases of the digestive system; Z88.6 Allergy status to analgesic agent; Z90.49 Acquired absence of other specified parts of digestive tract; R11.2 Nausea with vomiting, unspecified; R19.7 Diarrhea, unspecified
CPT/HCPCS: 80053; 83690; 85025; 96361; 96374; 99283; J7030; A4216; J2405

== ENCOUNTER 2020-06-17 19:11 | Emergency (ER) | payer MEDICAID, SELFPAY ==
[2020-06-17 19:12] VITALS: BP 106/83; PULSE 82; RESP 18; TEMP 36.9; O2SAT 100; BMI 37.6
[2020-06-17 19:30] VITALS: BP 106/83; PULSE 85; RESP 20; TEMP 36.9; O2SAT 100
--- NOTE | 2020-06-17 20:41 | CT_ITS ---
STUDY: CT ABDOMEN AND PELVIS WITHOUT CONTRAST REASON FOR EXAM: Female, 39 years old. POST-OP RT SIDED ABDOMEN PAIN SINCE THURSDAY BUT WORSE NOW,PT HAD CYSTS REMOVED FROM HER LIVER ON THURSDAY -- HX:HLD,KIDNEY STONES,PANCREATITIS,UTERINE CANCER -- SURGERY:CHOLECYSTECTOMY,TUBAL,MICHELINE/BSO RADIATION DOSAGE (If Supplied By Facility): CTDIvol = ( 14.33 ) mGy, DLP = ( 755.60 ) mGycm TECHNIQUE: Transaxial images were obtained from the dome of the diaphragm to the symphysis pubis without oral contrast, and without intravenous contrast. Sagittal and coronal images were reconstructed. Individualized dose optimization techniques were used for this CT. COMPARISON: 02/01/2020 FINDINGS: The visualized lung bases are unremarkable. The visualized portions of the heart are within normal limits. Once again, multiple hepatic cysts are noted. The largest cyst in the right hepatic lobe has been recently partially drained. It is smaller, more dense, and contains some air. It now measures 7.2 x 4.8 cm on image 40 of series 2. There are surgical clips in the gallbladder fossa consistent with a prior cholecystectomy. Normal spleen. Normal pancreas. Normal bilateral adrenal glands. Bilateral nonobstructing renal stones. Normal visualized stomach. Normal small intestine. Probable constipation. There is non-visualization of the appendix. Normal abdominal aorta. Normal inferior vena cava. Normal retroperitoneum. Normal urinary bladder. Postoperative changes of the anterior abdominal wall. Normal osseous structures. CT/Abdomen/Pelvis without Cont IMPRESSION: Changes of interval partial drainage of a large cyst in the right hepatic lobe. No evidence of extrahepatic hemorrhage or abscess. No evidence of acute intestinal pathology or acute obstructive uropathy. Electronically Signed: Deni Hernandez MD at 21:39 EDT Tel , Service support ,
[2020-06-17] MEDS: Ondansetron 4 MG/2 ML Vial IV (20:51)
[2020-06-17] MEDS: 0.9% Normal Saline 1,000 ML 1000 ML IV (20:51)
[2020-06-17] MEDS: HYDROmorphone 1 MG/ML Syringe IV (20:51)
[2020-06-17 20:55] LABS: Absolute Lymphocyte Count 4.39 X10^3/uL (0.83-4.51); Basophil# 0.08 X10^3/uL; Basophil% 0.8 % (0-1); Eosinophil# 0.85 X10^3/uL; Eosinophils% 8.5 % (0-5); Hematocrit 37.5 % (37-47); Hemoglobin 11.6 g/dL (12.0-15.0); Lymphocyte # 4.39 X10^3/ul (4.0); Lymphocyte % 43.9 % (19-41); Mean Corp Hgb Conc 30.9 g/dL (32-36); Mean Corpuscular Hgb 28.9 pg (27.0-32.0); Mean Corpuscular Volume 93.5 fL (81-99); Mean Platelet Vol. 11.3 fl (6.2-12.0); Monocyte# 0.57 X10^3/uL; Monocyte% 5.7 % (0-10); NRBC Flagged by Analyzer 0 % (0-5); Neutrophil # 3.98 X10^3/uL (2.7-7.7); Neutrophil % 39.7 % (47-70); Platelet Count 324 K/mm3 (150-450); RBC Distribution Width CV 13.2 % (11.6-14.6); RBC Distribution Width SD 45.5 fl (35.1-43.9); Red Blood Count 4.01 M/mm3 (4.2-5.4)
[2020-06-17 21:09] LABS: ALB/GLOB Ratio 0.9 RATIO (0.9-2.4); AST(SGOT) 28 U/L (15-37); Alanine Aminotransfer ALT/SGPT 32 U/L (13-56); Albumin, Serum 3.8 g/dL (3.2-5.0); Alkaline Phosphatase 109 U/L (45-117); Anion Gap 5 (5-15); BUN 15 mg/dL (7-18); BUN/Creat Ratio 15.4 RATIO (10-20); Calcium,Total 9.3 mg/dL (8.5-10.1); Chloride 107 mmol/L (98-107); Creatinine, Serum 0.98 mg/dL (0.55-1.02); EST Glomerular Filtration Rate 67 mL/min (>60); Est Glom Filt Rate - Afr Amer 81 mL/min (>60); Estimated Creatinine Clearance 57.58 ml/min; Globulin 4.2 g/dL (2.2-4.2); Glucose 92 mg/dL (74-106); Lipase 45 U/L (73-393); Potassium 3.9 mmol/L (3.5-5.1); Sodium Level 139 mmol/L (136-145)
[2020-06-17 21:19] VITALS: BP 121/91; PULSE 88; RESP 14; O2SAT 95
[2020-06-17 21:52] LABS: Lactic Acid 0.9 mmol/L (0.4-1.9)
--- NOTE | 2020-06-17 22:10 | ED.VIS.GEN ---
History of Present Illness Chief Complaint: Abd Pain Narrative: Patient presents with right upper quadrant pain after a liver cyst removal last Thursday. She has no fever or chills she is running out of pain medications at home. It was hard to get her pain under control after surgery. She has no back pain she has no urinary symptoms no diarrhea or constipation. Past Medical History - Allergies and Home Meds Allergies/Adverse Reactions: Allergies ketorolac tromethamine [From Toradol] Allergy (Verified 06/17/20 19:17) Rash metronidazole [From Flagyl] Allergy (Verified 06/17/20 19:17) Hives Penicillins Allergy (Verified 06/17/20 19:17) Hives aspirin Adverse Reaction (Verified 06/17/20 19:17) Upset Stomach CT DYE Allergy (Uncoded 06/17/20 19:17) Anaphylaxis IV contrast Allergy (Uncoded 06/17/20 19:17) Anaphylaxis Primary Care Physician: Marcelino Albert MD [Primary Care Provider] - Past Medical History: - - Liver cyst as in HPI Surgical History: cholecystectomy, hysterectomy, - - Oophorectomy Smoking Status: Former smoker Review of Systems General: Denies: Fever Cardiovascular: Denies: Chest pain Respiratory: Denies: Dyspnea Gastrointestinal: Reports: Abdominal pain. Denies: Nausea, Vomiting Genitourinary: Denies: Dysuria Musculoskeletal: Denies: Myalgias, Arthralgias, Back pain Skin: Denies: Rash Neurological: Denies: Headache, Weakness Hematologic: Denies: Easy bruising, Easy bleeding Physical Exam Vital Signs/Narrative: Vital Signs Temp Pulse Resp BP Pulse Ox 06/17/20 21:19 88 14 121/91 H 95 06/17/20 19:30 98.4 F 85 20 H 106/83 H 100 06/17/20 19:12 98.4 F 82 18 106/83 H 100 General: - - Patient appears in some distress. ENT: Moist mucous membranes Cardiovascular: Regular rate, Regular rhythm, No murmurs Respiratory: No distress, CTA bilaterally Abdomen: - - There is right upper quadrant tenderness without any guarding or rebound. Normal bowel sounds. No lower abdominal pain. Incisions are clean dry and intact Back: Nontender, Normal Inspection Extremities: Nontender Skin: Normal color Neurological: Alert, Normal Strength, Normal Sensation Psychological: Normal affect Diagnostic/Tx/Re-eval Chest X-Ray - ED: 1 View - Medical Decision Making Patient has a normal emergency department work-up her CT does not show any abscesses, she does not have a white count. She was given analgesia and improved. I will discharge her I will give her analgesia for home since she ran out. ED Disposition - Plan for ED Patient: Diagnosis: Postoperative abdominal pain Instructions: ED Abdominal Pain Unkn Cause Fem Prescriptions: Oxycodone HCl/Acetaminophen [Percocet 5/325] 1 tab PO Q6H PRN PRN 3 Days #12 tab PRN Reason: Pain Prescription Printed Referrals: Marcelino Albert MD [Primary Care Provider] - 3-5 Days
[2020-06-17] MEDS: HYDROmorphone 1 MG/ML Syringe 2 MG IV (22:12)
[2020-06-17 22:27] VITALS: BP 132/69; PULSE 74; RESP 14; O2SAT 100
== END 2020-06-17 22:52 | disposition home or self-care (01) ==
PROVIDERS: Emergency Provider Emergency Medicine; PCP Family Medicine
DX: G89.18 Other acute postprocedural pain (principal); R10.11 Right upper quadrant pain; Z87.891 Personal history of nicotine dependence
CPT/HCPCS: 74176; 80053; 83605; 83690; 85025; 96374; 96375; 96376; 99285; J7030; A4216; J2405

== ENCOUNTER 2020-06-19 13:56 | Emergency (ER) | payer MEDICAID, SELFPAY ==
[2020-06-19 13:57] VITALS: BP 129/73; PULSE 98; RESP 18; TEMP 36.4; O2SAT 97; BMI 36.2
--- NOTE | 2020-06-19 14:21 | ED.VIS.GI ---
History of Present Illness Chief Complaint: Abd Pain Informant: Patient - Abdominal Pain/Flank Pain Onset: Weeks - 1 Context: Gradual Onset - since abd surgery Quality: Aching Location: RUQ Current Severity: Severe Maximum Severity: Severe Worsened by: Movement - especially of RLE/thigh Relieved by: Nothing - using dilaudid, percocet - still severe pain - Nausea/Vomiting/Emesis GI Symptom: Nausea. Negative for: Vomiting - Diarrhea/Melena/Hematochezia GI Symptom: Diarrhea, Hematochezia - occ, due to my hemorrhoids. Negative for: Melena Associated Symptoms: Negative for: Dysuria, Frequency, Hematuria, Urgency Narrative: Patient states she had some cysts surgically removed from her liver at [facility] by Dr. Almendarez, her pain was initially under control with oral Dilaudid she was using postoperatively, it has progressively worsened. She had a collapsed and was seen here 2 days ago and had a scan that looked stable, but her pain has gradually worsened, it was worsening prior to the fall/collapse, she was prescribed Percocet although that is not helping either, and she is in so much pain now, she called her surgeon and was advised to find a way up there so she could be admitted. She states she had no ride to [place] today, so she presents to the ER here for evaluation and transfer. - Past Medical History (1) Anxiety Status: Chronic (2) Bipolar disorder Status: Chronic (3) Hyperlipidemia Status: Chronic (4) PUD (peptic ulcer disease) Status: Chronic Comment: according to pt Past Medical History - Allergies and Home Meds Allergies/Adverse Reactions: Allergies ketorolac tromethamine [From Toradol] Allergy (Verified 06/17/20 19:17) Rash metronidazole [From Flagyl] Allergy (Verified 06/17/20 19:17) Hives Penicillins Allergy (Verified 06/17/20 19:17) Hives aspirin Adverse Reaction (Verified 06/17/20 19:17) Upset Stomach CT DYE Allergy (Uncoded 06/17/20 19:17) Anaphylaxis IV contrast Allergy (Uncoded 06/17/20 19:17) Anaphylaxis Primary Care Physician: Marcelino Albert MD [Primary Care Provider] - Surgical History: cholecystectomy, hysterectomy, - - Oophorectomy Smoking Status: Former smoker Review of Systems General: Reports: Malaise. Denies: Chills, Fever, Sweats Eyes: Denies: Visual changes - bilaterally, Diplopia ENT: Denies: Rhinorrhea, Sore throat Cardiovascular: Denies: Chest pain, Palpitations Respiratory: Denies: Dyspnea, Cough, Dyspnea on exertion Gastrointestinal: Reports: Abdominal pain, Nausea, Diarrhea. Denies: Vomiting, Melena, Hematochezia Genitourinary: Denies: Dysuria, Hematuria, Frequency Musculoskeletal: Denies: Back pain, Swelling, Extremity Pain Skin: Denies: Rash, Wounds Neurological: Denies: Headache, Weakness, Numbness Physical Exam Vital Signs/Narrative: Vital Signs Temp Pulse Resp BP Pulse Ox 06/19/20 13:57 97.5 F L 98 18 129/73 H 97 Inital Vital Signs reviewed: Yes General: Well nourished, Well developed, Obese, Acute Distress - painful Head: Normocephalic, Atraumatic Eyes: Perrl, EOMI ENT: Moist mucous membranes, No rhinorrhea Neck: Supple, Nontender Cardiovascular: Regular rate, Regular rhythm, No murmurs Respiratory: No distress, CTA bilaterally, Chest nontender Abdomen: Soft, Normal bowel sounds, No masses, Tender - Right upper quadrant, Guarding, - - Laparoscopy incisions healing nicely without dehiscence or signs of infection. Negative for: Nondistended - + Distended, Rebound tenderness Back: Nontender, Normal Inspection. Negative for: CVA tenderness Extremities: Nontender, No edema. Negative for: Calf Tenderness Skin: Normal color, No rash, No Trauma Neurological: Alert, Oriented x3, Cranial nerves II-XII grossly intact, Normal Strength, Normal Sensation Psychological: Normal Mood, Tearful Diagnostic/Tx/Re-eval Laboratory Tests 06/19/20 06/19/20 Range/Units 14:25 14:25 WBC 9.8 (4.4-11.0) K/mm3 RBC 4.33 (4.2-5.4) M/mm3 Hgb 12.2 (12.0-15.0) g/dL Hct 39.7 (37-47) % MCV 91.7 (81-99) fL MCH 28.2 (27.0-32.0) pg MCHC 30.7 L (32-36) g/dL RDW Std Deviation 44.8 H (35.1-43.9) fl RDW Coeff of Shun 13.2 (11.6-14.6) % Plt Count 330 (150-450) K/mm3 MPV 10.4 (6.2-12.0) fl Immature Gran % (Auto) 1.500 H (0.0-0.9) % Neut % (Auto) 50.1 (47-70) % Lymph % (Auto) 37.1 (19-41) % [place] % (Auto) 3.3 (0-10) % Eos % (Auto) 7.2 H (0-5) % Baso % (Auto) 0.8 (0-1) % Absolute Neuts (auto) 4.9 (2.0-7.7) X10^3/uL Absolute Lymphs (auto) 3.64 (0.83-4.51) X10^3/uL Nucleated RBC % 0 (0-5) % Sodium 137 (136-145) mmol/L Potassium 3.6 (3.5-5.1) mmol/L Chloride 106 (98-107) mmol/L Carbon Dioxide 24.0 (21.0-32.0) mmol/L Anion Gap 7 (5-15) BUN 13 (7-18) mg/dL Creatinine 1.03 H (0.55-1.02) mg/dL Estim Creat Clear Calc 54.79 ml/min Est GFR (MDRD) Af Amer 76 (>60) mL/min Est GFR (MDRD) Non-Af 63 (>60) mL/min BUN/Creatinine Ratio 12.6 (10-20) RATIO Glucose 147 H (74-106) mg/dL Calcium 9.2 (8.5-10.1) mg/dL Total Bilirubin 0.20 (0.20-1.00) mg/dL AST 19 (15-37) U/L ALT 28 (13-56) U/L Alkaline Phosphatase 120 H (45-117) U/L Total Protein 8.5 H (6.4-8.2) g/dL Albumin 4.0 (3.2-5.0) g/dL Globulin 4.5 H (2.2-4.2) g/dL Albumin/Globulin Ratio 0.9 (0.9-2.4) RATIO - Medical Decision Making Patient was given IV fluids, Zofran, a milligram of Dilaudid. I repeated her labs, her alkaline phosphatase is 120, which is just slightly elevated compared to what it was, the rest of her liver enzymes are normal, she has no leukocytosis, and she is not anemic. She had a CT scan 2 days ago, it showed postoperative changes in the liver and no other acute abnormality or hemorrhage or abscess. Without a leukocytosis, or any changes really in her symptoms in the past 2 days, I see no reason to reimage her. I discussed with her surgeon. She had a laparoscopic cyst drainage. There is nothing resected. He said it was pretty straightforward and without complication. There would be no plan to do any other procedures given what we know at this time. I discussed with the patient, she is a little improved but still in a lot of pain. I offered to discuss with the hospitalist to try to get her admitted here, if she is just going to get pain control. She would prefer to go back up to [place] to see Dr. Almendarez, I discussed again with him and he accepts the patient to medical surgical floor. ED Disposition - Plan for ED Patient: Disposition: [facility] Diagnosis: Postoperative right upper quadrant abdominal pain Referrals: Marcelino Albert MD [Primary Care Provider] -
[2020-06-19 14:31] LABS: Absolute Lymphocyte Count 3.64 X10^3/uL (0.83-4.51); Absolute Neutrophil Count 4.9 X10^3/uL (2.0-7.7); Basophil# 0.08 X10^3/uL; Basophil% 0.8 % (0-1); Eosinophil# 0.71 X10^3/uL; Eosinophils% 7.2 % (0-5); Hematocrit 39.7 % (37-47); Hemoglobin 12.2 g/dL (12.0-15.0); Lymphocyte # 3.64 X10^3/ul (4.0); Lymphocyte % 37.1 % (19-41); Mean Corp Hgb Conc 30.7 g/dL (32-36); Mean Corpuscular Hgb 28.2 pg (27.0-32.0); Mean Corpuscular Volume 91.7 fL (81-99); Mean Platelet Vol. 10.4 fl (6.2-12.0); Monocyte# 0.32 X10^3/uL; Monocyte% 3.3 % (0-10); NRBC Flagged by Analyzer 0 % (0-5); Neutrophil # 4.92 X10^3/uL (2.7-7.7); Neutrophil % 50.1 % (47-70); Platelet Count 330 K/mm3 (150-450); RBC Distribution Width CV 13.2 % (11.6-14.6); RBC Distribution Width SD 44.8 fl (35.1-43.9); Red Blood Count 4.33 M/mm3 (4.2-5.4); White Blood Count 9.8 K/mm3 (4.4-11.0)
[2020-06-19] MEDS: 0.9% Normal Saline 1,000 ML 125 ML IV (14:31)
[2020-06-19] MEDS: HYDROmorphone 1 MG/ML Syringe IV ×2 (14:31→16:27)
[2020-06-19] MEDS: Ondansetron 4 MG/2 ML Vial IV (14:32)
[2020-06-19 14:35] VITALS: BP 129/73; PULSE 98; RESP 18; TEMP 36.4; O2SAT 97
[2020-06-19 14:47] LABS: ALB/GLOB Ratio 0.9 RATIO (0.9-2.4); AST(SGOT) 19 U/L (15-37); Alanine Aminotransfer ALT/SGPT 28 U/L (13-56); Alkaline Phosphatase 120 U/L (45-117); Anion Gap 7 (5-15); BUN 13 mg/dL (7-18); BUN/Creat Ratio 12.6 RATIO (10-20); Calcium,Total 9.2 mg/dL (8.5-10.1); Chloride 106 mmol/L (98-107); Creatinine, Serum 1.03 mg/dL (0.55-1.02); EST Glomerular Filtration Rate 63 mL/min (>60); Est Glom Filt Rate - Afr Amer 76 mL/min (>60); Estimated Creatinine Clearance 54.79 ml/min; Globulin 4.5 g/dL (2.2-4.2); Glucose 147 mg/dL (74-106); Potassium 3.6 mmol/L (3.5-5.1); Protein, Total 8.5 g/dL (6.4-8.2); Sodium Level 137 mmol/L (136-145)
--- NOTE | 2020-06-19 15:32 | NURSING ---
CALLED [facility] ABOUT TRANSFER. TALKED TO JYOTI LIN ACCEPTED PATIENT. MED SURG NON MONITORED BED [facility] HAS NO BEDS NOW. JUST BE PATIENT
--- NOTE | 2020-06-19 15:37 | CM.ED ---
SOCIAL WORK Reason for Consult: Active ED Care Plan Reviewed patient's visit with staff. Patient being transferred due to post op abdominal pain. Shana Cochran, HOUSING ASSISTANT, [employer]BLER
--- NOTE | 2020-06-19 17:24 | NURSING ---
CALLED [facility]. ETA IS 45 MIN
[2020-06-19 17:26] VITALS: BP 119/62; PULSE 79; RESP 18; TEMP 36.1; O2SAT 99
== END 2020-06-19 18:26 | disposition short-term general hospital (02) ==
PROVIDERS: Emergency Provider Emergency Medicine; PCP Family Medicine
DX: R10.11 Right upper quadrant pain (principal); G89.18 Other acute postprocedural pain; E78.5 Hyperlipidemia, unspecified; F31.9 Bipolar disorder, unspecified; F41.9 Anxiety disorder, unspecified; Z87.11 Personal history of peptic ulcer disease; Z88.0 Allergy status to penicillin; Z88.1 Allergy status to other antibiotic agents; Z88.6 Allergy status to analgesic agent; Z88.8 Allergy status to other drugs, medicaments and biological substances; Z90.49 Acquired absence of other specified parts of digestive tract; Z90.710 Acquired absence of both cervix and uterus; Z90.721 Acquired absence of ovaries, unilateral
CPT/HCPCS: 80053; 85025; 96374; 96375; 96376; 99284; J2405

== ENCOUNTER 2020-07-19 09:10 | Emergency (ER) | payer MEDICAID, SELFPAY ==
[2020-07-19 09:10] VITALS: BP 127/71; PULSE 98; RESP 18; TEMP 36.9; O2SAT 98; BMI 37.7
--- NOTE | 2020-07-19 09:26 | ED.DCSUM_ITS ---
- ER Visit Summary Date of Service: 07/19/20 Chief Complaint: [Abdominal pain] History of Present Illness: The patient is a 39 F [presents to the emergency department with abdominal pain that is worsened over the last 3 days. Patient has had some chronic issues with abdominal pain. She has been seeing a g astroenterologist who did an EGD and Darlyn that was unremarkable. Patient has had history of pancreatitis. Patient has had prior kidney stones. She states that over the last 3 days she really has not been able to eat anything and she is been vomiting frequently. Patient has had prior cholecystectomy and hysterectomy. Patient states that she has frequent diarrhea and bloating. She denies urinary symptoms.] Physical Examination: [HEENT-PERRLA, EOMI. Cranial nerves II through XII grossly intact. TMs clear. Mucous membranes moist. No adenopathy. Cardiovascular-regular rate and rhythm without murmur or ectopy Lungs-clear to auscultation, chest wall stable without crepitus or subcu emphysema Abdomen-normoactive bowel sounds, soft. Patient has tenderness over the right upper quadrant and epigastric region. There is guarding. No rebound, rigidity, or peritoneal signs. Extremities-intact ?4, normal range of motion, normal pulses, atraumatic] Test Results: [CBC with differential obtained showed a white count of 9.5, hemoglobin 13, hematocrit 42, placed 324. Chemistries unremarkable. BUN was 21 and creatinine 1.16. LFTs were normal. Lipase was 57. Urinalysis was unremarkable other than 15 ketones without signs of infection.] Emergency Department Course and Treatment: [ Established. Patient was given 1 mg of Dilaudid and 4 mg of Zofran. Patient had a CT scan of the abdomen pelvis about a month ago which was unremarkable. Given her labs being unremarkable and clinically I do not feel she has an acute abdomen I do not feel any further imaging is indicated.] Treatment Plan: [Patient advised to follow-up with her dairy lab technician within next 3 to 5 days. Patient advised to return if persistent vomiting, dehydration, worsening pain, or condition should worsen anyway.] Disposition: [Discharged home in stable condition] Impression: [Abdominal pain-etiology uncertain] This note was generated with FwdHealthation software. It may contain incorrect words, spelling, and punctuation that were not noted in review of the chart prior to signing ED Disposition - Plan for ED Patient: Referrals: Marcelino Albert MD [Primary Care Provider] -
[2020-07-19 09:42] LABS: Bacteria 0 SEEN /hpf (None Seen); Red Blood Cells-Urine 0 SEEN /hpf (0-5)
[2020-07-19 09:44] LABS: Color, Urine Yellow (Yellow); Glucose, Dipstick Normal (Normal); Ketone-Dipstick 15 mg/dl (Negative); Leukocyte Esterase-Dipstick 25 /ul (Negative); Nitrite-Dipstick Negative (Negative); Occult Blood-Urine 10 /ul (Negative); Protein-Dipstick 30 mg/dl (Negative); Urine Bilirubin Dipstick Negative (Negative); Urine Clarity Sl. Cloudy (Clear); Urine Urobilinogen Normal (Normal)
[2020-07-19 09:54] LABS: Squamous Epithelial Cells - UA 5-10 SEEN /hpf (5-10); White Blood Cells 0-5 SEEN /hpf (0-5)
[2020-07-19] MEDS: 0.9% Normal Saline 1,000 ML 125 ML IV (09:54)
[2020-07-19] MEDS: Ondansetron 4 MG/2 ML Vial IV (09:55)
[2020-07-19] MEDS: HYDROmorphone 1 MG/ML Syringe IV (09:55)
[2020-07-19 09:56] LABS: Mucous, Urine 3+ /hpf (<or=2+)
[2020-07-19 10:11] LABS: Absolute Lymphocyte Count 3.41 X10^3/uL (0.83-4.51); Absolute Neutrophil Count 5.1 X10^3/uL (2.0-7.7); Basophil# 0.04 X10^3/uL; Basophil% 0.4 % (0-1); Eosinophil# 0.35 X10^3/uL; Eosinophils% 3.7 % (0-5); Hematocrit 42.2 % (37-47); Hemoglobin 13.1 g/dL (12.0-15.0); Lymphocyte # 3.41 X10^3/ul (4.0); Lymphocyte % 35.7 % (19-41); Mean Corpuscular Hgb 28.4 pg (27.0-32.0); Mean Corpuscular Volume 91.3 fL (81-99); Mean Platelet Vol. 10.8 fl (6.2-12.0); Monocyte# 0.57 X10^3/uL; NRBC Flagged by Analyzer 0 % (0-5); Neutrophil # 5.07 X10^3/uL (2.7-7.7); Neutrophil % 53.2 % (47-70); Platelet Count 324 K/mm3 (150-450); RBC Distribution Width CV 13.8 % (11.6-14.6); RBC Distribution Width SD 46.6 fl (35.1-43.9); Red Blood Count 4.62 M/mm3 (4.2-5.4); White Blood Count 9.5 K/mm3 (4.4-11.0)
[2020-07-19 10:22] LABS: AST(SGOT) 20 U/L (15-37); Alanine Aminotransfer ALT/SGPT 33 U/L (13-56); Albumin, Serum 4.4 g/dL (3.2-5.0); Alkaline Phosphatase 125 U/L (45-117); Anion Gap 6 (5-15); BUN 21 mg/dL (7-18); BUN/Creat Ratio 18.1 RATIO (10-20); Calcium,Total 9.6 mg/dL (8.5-10.1); Chloride 106 mmol/L (98-107); Creatinine, Serum 1.16 mg/dL (0.55-1.02); EST Glomerular Filtration Rate 55 mL/min (>60); Est Glom Filt Rate - Afr Amer 66 mL/min (>60); Estimated Creatinine Clearance 48.65 ml/min; Globulin 4.5 g/dL (2.2-4.2); Glucose 101 mg/dL (74-106); Lipase 57 U/L (73-393); Potassium 3.5 mmol/L (3.5-5.1); Protein, Total 8.9 g/dL (6.4-8.2); Sodium Level 139 mmol/L (136-145)
--- NOTE | 2020-07-19 10:33 | DCINST.ED_ITS ---
ED Disposition - Plan for ED Patient: Instructions: ED Abdominal Pain Unkn Cause Fem Referrals: Marcelino Albert MD [Primary Care Provider] - 3-5 Days Additional Instructions: see your refrigerating technician
[2020-07-19 10:57] VITALS: BP 147/74; RESP 17; O2SAT 99
== END 2020-07-19 11:03 | disposition home or self-care (01) ==
PROVIDERS: Emergency Provider Emergency Medicine; PCP Family Medicine
DX: R10.9 Unspecified abdominal pain (principal); Z87.19 Personal history of other diseases of the digestive system; Z87.442 Personal history of urinary calculi; Z90.49 Acquired absence of other specified parts of digestive tract; R14.0 Abdominal distension (gaseous); R19.7 Diarrhea, unspecified
CPT/HCPCS: 80053; 81001; 83690; 85025; 96361; 96374; 96375; 99285; J7030; A4216; J2405

== ENCOUNTER 2020-08-01 09:49 | Emergency (ER) | payer MEDICAID, SELFPAY ==
[2020-08-01 09:50] VITALS: BP 124/66; PULSE 109; RESP 19; TEMP 36.9; O2SAT 100; BMI 36.8
--- NOTE | 2020-08-01 10:10 | ED.DCSUM_ITS ---
History of Present Illness Chief Complaint: Abd Pain Informant: Patient Narrative: Patient is a 39-year-old female with a past medical history of pancreatitis, chronic abdominal pain. She states that this recently flared up since yesterday. She had a few episodes of vomiting and been having diarrhea. No fevers. She denies any cough associated with this. The pain is in the right upper quadrant. She rates as severe. No known aggravating or relieving factors. Her surgeon who took a cyst off of her liver within the past few months placed her on [place] which she said she developed a rash to. No associated chest pain or shortness of breath. She does have a history of cholecystectomy, appendectomy, hysterectomy. She denies alcohol or drug use. She is a current everyday smoker. She states she has had some dysuria lately and has been drinking cranberry juice for this. Past Medical History - Allergies and Home Meds Allergies/Adverse Reactions: Allergies ketorolac tromethamine [From Toradol] Allergy (Verified 08/01/20 09:49) Rash metronidazole [From Flagyl] Allergy (Verified 08/01/20 09:49) Hives Penicillins Allergy (Verified 08/01/20 09:49) Hives aspirin Adverse Reaction (Verified 08/01/20 09:49) Upset Stomach CT DYE Allergy (Uncoded 08/01/20 09:49) Anaphylaxis IV contrast Allergy (Uncoded 08/01/20 09:49) Anaphylaxis Primary Care Physician: Marcelino Albert MD [Primary Care Provider] - 2 Days Prior records reviewed: Yes Surgical History: cholecystectomy, hysterectomy, - - Oophorectomy Smoking Status: Current every day smoker Review of Systems All systems negative except as indicated General: Denies: Chills, Fever, Sweats Eyes: Denies: Visual changes - bilaterally, Diplopia ENT: Denies: Rhinorrhea, Sore throat Cardiovascular: Denies: Chest pain, Palpitations Respiratory: Denies: Dyspnea, Cough, Dyspnea on exertion Gastrointestinal: Reports: Nausea, Vomiting, Diarrhea. Denies: Abdominal pain, Melena, Hematochezia Genitourinary: Reports: Dysuria. Denies: Hematuria, Frequency Musculoskeletal: Denies: Back pain, Extremity Pain Skin: Denies: Rash, Wounds Neurological: Denies: Headache, Weakness, Numbness Physical Exam Vital Signs/Narrative: Vital Signs Temp Pulse Resp BP Pulse Ox 08/01/20 09:50 98.5 F 109 H 19 H 124/66 H 100 Inital Vital Signs reviewed: Yes General: Well nourished, Well developed, No Acute Distress Head: Normocephalic, Atraumatic Eyes: Perrl, EOMI ENT: Moist mucous membranes, No rhinorrhea Neck: Supple, Nontender Cardiovascular: Regular rate, Regular rhythm, No murmurs Respiratory: No distress, CTA bilaterally, Chest nontender Abdomen: Soft, Nondistended, Normal bowel sounds, Tender - Right upper quadrant. Negative for: Guarding, Rebound tenderness Back: Nontender, Normal Inspection, CVA tenderness - Mild on the right Extremities: Nontender, No edema Skin: Normal color, No rash Neurological: Alert, Oriented x3, Cranial nerves II-XII grossly intact, Normal Strength, Normal Sensation Psychological: Normal affect, Normal Mood Diagnostic/Tx/Re-eval - Medical Decision Making Patient presents to the ED for acute on chronic exacerbation of her abdominal pain. Upon arrival to the emergency department she is in no acute distress. Vital signs within normal limits. Will check basic lab work. She has been seen multiple times for this before in the past. She did have a CT scan of the abdomen back in June did not show any acute pathology. We will treat her symptomatically with a dose of morphine and Zofran. Patient is feeling better after treatment. Lab work did not reveal a significant acute abnormality. We did have shared decision-making on repeating a CT scan which she does not want to repeat at this time. This is similar to the previous pain she is been having. Her urine did show suspicion for urinary tract infection with the symptoms she is having we will treat with Keflex. She does have allergy to penicillin but this is only a rash. She is to follow-up with her surgeon. Warning signs and symptoms for which to return to the ED are reviewed with her. She understands and is agreeable this plan. Patient discharged home in stable condition. All questions answered. ED Disposition - Plan for ED Patient: Disposition: Home or Assisted Living Diagnosis: Abdominal pain, UTI (urinary tract infection) Instructions: Understanding Urinary Tract Infections (UTIs), ED Abdominal Pain Unkn Cause Fem Prescriptions: Cephalexin [Keflex] 500 mg PO Q12 #14 cap Transmission Status: Received by [facility]/pharmacy #[id number] Referrals: Marcelino Albert MD [Primary Care Provider] - 2 Days
[2020-08-01] MEDS: Ondansetron 4 MG/2 ML Vial IV (10:56)
[2020-08-01] MEDS: Morphine 4 MG/ML Syringe IV (10:56)
[2020-08-01 10:59] LABS: Absolute Lymphocyte Count 2.72 X10^3/uL (0.83-4.51); Absolute Neutrophil Count 4.7 X10^3/uL (2.0-7.7); Basophil# 0.05 X10^3/uL; Basophil% 0.6 % (0-1); Eosinophil# 0.29 X10^3/uL; Eosinophils% 3.4 % (0-5); Hematocrit 39.6 % (37-47); Hemoglobin 12.2 g/dL (12.0-15.0); Lymphocyte # 2.72 X10^3/ul (4.0); Lymphocyte % 31.9 % (19-41); Mean Corp Hgb Conc 30.8 g/dL (32-36); Mean Corpuscular Hgb 27.4 pg (27.0-32.0); Mean Corpuscular Volume 88.8 fL (81-99); Mean Platelet Vol. 10.4 fl (6.2-12.0); Monocyte# 0.71 X10^3/uL; Monocyte% 8.3 % (0-10); NRBC Flagged by Analyzer 0 % (0-5); Neutrophil # 4.67 X10^3/uL (2.7-7.7); Neutrophil % 54.9 % (47-70); Platelet Count 260 K/mm3 (150-450); RBC Distribution Width CV 13.3 % (11.6-14.6); RBC Distribution Width SD 43.7 fl (35.1-43.9); Red Blood Count 4.46 M/mm3 (4.2-5.4); White Blood Count 8.5 K/mm3 (4.4-11.0)
[2020-08-01 11:06] LABS: Mucous, Urine 0 SEEN /hpf (<or=2+); Red Blood Cells-Urine 0 SEEN /hpf (0-5)
[2020-08-01 11:07] LABS: Color, Urine Yellow (Yellow); Glucose, Dipstick Normal (Normal); Ketone-Dipstick Negative (Negative); Leukocyte Esterase-Dipstick 25 /ul (Negative); Nitrite-Dipstick Negative (Negative); Occult Blood-Urine Negative /ul (Negative); Protein-Dipstick Negative (Negative); Urine Bilirubin Dipstick Negative (Negative); Urine Clarity Sl. Cloudy (Clear); Urine Urobilinogen Normal (Normal)
[2020-08-01 11:13] LABS: ALB/GLOB Ratio 0.9 RATIO (0.9-2.4); AST(SGOT) 11 U/L (15-37); Alanine Aminotransfer ALT/SGPT 31 U/L (13-56); Albumin, Serum 3.9 g/dL (3.2-5.0); Alkaline Phosphatase 119 U/L (45-117); Anion Gap 5 (5-15); BUN 8 mg/dL (7-18); BUN/Creat Ratio 8.7 RATIO (10-20); Calcium,Total 9.4 mg/dL (8.5-10.1); Chloride 108 mmol/L (98-107); Creatinine, Serum 0.92 mg/dL (0.55-1.02); EST Glomerular Filtration Rate 72 mL/min (>60); Est Glom Filt Rate - Afr Amer 87 mL/min (>60); Estimated Creatinine Clearance 61.34 ml/min; Globulin 4.2 g/dL (2.2-4.2); Glucose 103 mg/dL (74-106); Lipase 54 U/L (73-393); Potassium 3.7 mmol/L (3.5-5.1); Protein, Total 8.1 g/dL (6.4-8.2); Sodium Level 139 mmol/L (136-145)
[2020-08-01 11:14] LABS: Bacteria 1+ /hpf (None Seen); Squamous Epithelial Cells - UA 5-10 SEEN /hpf (5-10); White Blood Cells 0-5 SEEN /hpf (0-5)
[2020-08-01 12:07] VITALS: RESP 17
== END 2020-08-01 12:08 | disposition home or self-care (01) ==
PROVIDERS: Emergency Provider Emergency Medicine; PCP Family Medicine
DX: N39.0 Urinary tract infection, site not specified (principal); R10.9 Unspecified abdominal pain; G89.29 Other chronic pain; F17.200 Nicotine dependence, unspecified, uncomplicated; Z87.19 Personal history of other diseases of the digestive system; Z88.0 Allergy status to penicillin; Z88.1 Allergy status to other antibiotic agents; Z88.6 Allergy status to analgesic agent; Z88.8 Allergy status to other drugs, medicaments and biological substances; Z90.49 Acquired absence of other specified parts of digestive tract; Z90.710 Acquired absence of both cervix and uterus; Z90.721 Acquired absence of ovaries, unilateral
CPT/HCPCS: 80053; 81001; 83690; 85025; 99283; A4216; J2405

== ENCOUNTER 2020-10-03 20:59 | Emergency (ER) | payer MEDICAID, SELFPAY ==
[2020-10-03 21:03] VITALS: BP 142/78; PULSE 98; RESP 18; TEMP 36.9; O2SAT 99; BMI 40.0
[2020-10-03] MEDS: Ondansetron 4 MG/2 ML Vial IV (21:56)
[2020-10-03] MEDS: Morphine 4 MG/ML Syringe IV (21:57)
[2020-10-03] MEDS: 0.9% Normal Saline 1,000 ML 125 ML IV (21:57)
[2020-10-03 22:10] LABS: Bacteria 0 SEEN /hpf (None Seen); Mucous, Urine 0 SEEN /hpf (<or=2+); Red Blood Cells-Urine 0 SEEN /hpf (0-5)
[2020-10-03 22:13] LABS: Color, Urine Yellow (Yellow); Glucose, Dipstick Normal (Normal); Ketone-Dipstick Negative (Negative); Leukocyte Esterase-Dipstick 25 /ul (Negative); Nitrite-Dipstick Negative (Negative); Occult Blood-Urine 25 /ul (Negative); Protein-Dipstick Negative (Negative); Urine Bilirubin Dipstick Negative (Negative); Urine Clarity Clear (Clear); Urine Urobilinogen Normal (Normal)
[2020-10-03 22:16] LABS: Absolute Lymphocyte Count 4.33 X10^3/uL (0.83-4.51); Absolute Neutrophil Count 5.6 X10^3/uL (2.0-7.7); Basophil# 0.06 X10^3/uL; Basophil% 0.5 % (0-1); Eosinophils% 3.6 % (0-5); Hematocrit 38.7 % (37-47); Hemoglobin 12.3 g/dL (12.0-15.0); Lymphocyte # 4.33 X10^3/ul (4.0); Mean Corp Hgb Conc 31.8 g/dL (32-36); Mean Corpuscular Hgb 28.5 pg (27.0-32.0); Mean Corpuscular Volume 89.6 fL (81-99); Mean Platelet Vol. 10.6 fl (6.2-12.0); Monocyte# 0.63 X10^3/uL; Monocyte% 5.7 % (0-10); NRBC Flagged by Analyzer 0 % (0-5); Neutrophil # 5.59 X10^3/uL (2.7-7.7); Neutrophil % 50.4 % (47-70); Platelet Count 285 K/mm3 (150-450); RBC Distribution Width CV 13.6 % (11.6-14.6); RBC Distribution Width SD 44.8 fl (35.1-43.9); Red Blood Count 4.32 M/mm3 (4.2-5.4); White Blood Count 11.1 K/mm3 (4.4-11.0)
[2020-10-03 22:23] LABS: Squamous Epithelial Cells - UA 5-10 SEEN /hpf (5-10); White Blood Cells 0-5 SEEN /hpf (0-5)
[2020-10-03 22:32] LABS: Anion Gap 5 (5-15); BUN 16 mg/dL (7-18); BUN/Creat Ratio 14.7 RATIO (10-20); Calcium,Total 8.8 mg/dL (8.5-10.1); Chloride 107 mmol/L (98-107); Creatinine, Serum 1.09 mg/dL (0.55-1.02); EST Glomerular Filtration Rate 59 mL/min (>60); Est Glom Filt Rate - Afr Amer 71 mL/min (>60); Estimated Creatinine Clearance 51.25 ml/min; Glucose 76 mg/dL (74-106); Potassium 3.4 mmol/L (3.5-5.1); Sodium Level 139 mmol/L (136-145)
[2020-10-03 23:01] VITALS: PULSE 89; RESP 15; O2SAT 97
--- NOTE | 2020-10-03 23:54 | ED.VISSUMM ---
- ER Visit Summary Date of Service: 10/03/20 Chief Complaint: [Abdominal pain] History of Present Illness: The patient is a 40 F [does the emergency department with abdominal pain that she has had for over a month. Patient states that she is seeing her SOFTWARE SECURITY CONSULTANT. She has had history of a hysterectomy and has had her ovaries removed but states that there may be some sort of a remnant of an ovary that may be causing her pain or scar tissue. Patient also has history of GERD and peptic ulcer disease. She has had prior cholecystectomy. Patient has had multiple visits to this emergency department for abdominal pain. She has a care plan. Patient denies any fevers. She denies urinary symptoms. She is not had and vomiting. She not had diarrhea. She denies any blood in her stool or black tarry stools.] Physical Examination: [HEENT-PERRLA, EOMI. Cranial nerves II through XII grossly intact. TMs clear. Mucous membranes moist. No adenopathy. Cardiovascular-regular rate and rhythm without murmur or ectopy Lungs-clear to auscultation, chest wall stable without crepitus or subcu emphysema Abdomen-normoactive bowel sounds, soft. Patient has tenderness diffusely over the lower abdomen. There is no rebound, rigidity, or peritoneal signs. Extremities-intact ?4, normal range of motion, normal pulses, atraumatic] Test Results: [CBC with differential showed an minimally elevated white count of 11.1, hemoglobin 12.3, hematocrit 27, platelets 285. Chemistries unremarkable. Urinalysis was normal.] Emergency Department Course and Treatment: [IV line established on arrival. Patient was medicated with 4 more milligrams of morphine and 4 mg of Zofran.] Treatment Plan: [This point patient advised to follow-up with her SOFTWARE SECURITY CONSULTANT. She understands I cannot give her any narcotics for home. At this point the etiology of her pain is unclear. I do not feel any imaging is indicated as she has had multiple scans in the past and she understands this and is comfortable with that.] Disposition: [Discharged home in stable condition] Impression: [Acute exacerbation of chronic abdominal pain] This note was generated with Soumation software. It may contain incorrect words, spelling, and punctuation that were not noted in review of the chart prior to signing ED Disposition - Plan for ED Patient: Referrals: Marcelino Albert MD [Primary Care Provider] -
--- NOTE | 2020-10-03 23:57 | DCINST.ED_ITS ---
ED Disposition - Plan for ED Patient: Instructions: ED Abdominal Pain Unkn Cause Fem Referrals: Marcelino Albert MD [Primary Care Provider] - Additional Instructions: See your SPECIAL EDUCATION KINDERGARTEN TEACHER
[2020-10-04 00:04] VITALS: BP 108/70; PULSE 81; RESP 15; O2SAT 97
== END 2020-10-04 00:50 | disposition home or self-care (01) ==
LOC: ED 22:05
PROVIDERS: Emergency Provider Emergency Medicine; PCP Family Medicine
DX: R10.9 Unspecified abdominal pain (principal); G89.29 Other chronic pain; K21.9 Gastro-esophageal reflux disease without esophagitis; Z87.11 Personal history of peptic ulcer disease; Z90.49 Acquired absence of other specified parts of digestive tract; Z90.722 Acquired absence of ovaries, bilateral
CPT/HCPCS: 80048; 81001; 85025; 96361; 96374; 96375; 99285; J7030; A4216; J2405

== ENCOUNTER 2020-11-15 10:33 | Emergency (ER) | payer MEDICAID, SELFPAY ==
[2020-11-15 10:34] VITALS: BP 127/67; PULSE 80; RESP 16; TEMP 36.6; O2SAT 99; BMI 39.6
[2020-11-15 10:39] VITALS: BP 127/67; PULSE 80; RESP 16; TEMP 36.6; O2SAT 99
--- NOTE | 2020-11-15 10:45 | ED.DCSUM_ITS ---
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 She states she recently had an outpatient MRI of her brain which was negative. She is scheduled for a stress test later this month. She was sent to [place]. She states her doctor called ahead of time. She informed me they did none of the tests he requested. Patient states she was told by the paramedics she had a fever. She denies fever or chills. She denies headache. She denies double vision, blurred vision loss of vision. Denies trouble with speech or swallowing. She presently denies chest pain or shortness of breath. She does report nausea without vomiting. She is had chronic diarrhea for 6 months and states she had a colonoscopy and was diagnosed with irritable bowel syndrome. She denies blood or mucus with bowel movement. She presently denies abdominal pain. She states she has right ankle pain and lifted her left leg. She then points to her right flank and ab domen stating she now has pain presently in these locations. Patient's care plan was reviewed. Will adhere to the care plan. Prior similar symptoms: Yes Recent Illness/Hospitalization: Yes - Past Medical History (1) Anxiety Status: Chronic (2) Bipolar disorder Status: Chronic (3) Dyspnea Status: Chronic (4) History of uterine cancer Status: Chronic (5) Hyperlipidemia Status: Chronic (6) Incomplete right bundle branch block Status: Chronic (7) PUD (peptic ulcer disease) Status: Chronic Comment: according to pt (8) Syncope Status: Chronic Past Medical History - Allergies and Home Meds Allergies/Adverse Reactions: Allergies ketorolac tromethamine [From Toradol] Allergy (Verified 11/15/20 10:38) Rash metronidazole [From Flagyl] Allergy (Verified 11/15/20 10:38) Hives Penicillins Allergy (Verified 11/15/20 10:38) Hives aspirin Adverse Reaction (Verified 11/15/20 10:38) Upset Stomach CT DYE Allergy (Uncoded 11/15/20 10:38) Anaphylaxis IV contrast Allergy (Uncoded 11/15/20 10:38) Anaphylaxis Primary Care Physician: Marcelino Albert MD [Primary Care Provider] - Prior records reviewed: Yes Surgical History: cholecystectomy, hysterectomy, - - Oophorectomy Lives: Alone Smoking Status: Current every day smoker Alcohol: None Drugs: None Review of Systems General: Reports: Malaise. Denies: Chills, Fever, Subjective, Sweats Eyes: Denies: Visual changes - bilaterally ENT: Denies: Rhinorrhea, Sore throat Cardiovascular: Denies: Chest pain, Palpitations Respiratory: Reports: Dyspnea - Per paramedics. Patient did not complain of shortness of breath to me. Denies: Cough, Sputum, Dyspnea on exertion, Orthopnea Gastrointestinal: Reports: Nausea, Diarrhea. Denies: Abdominal pain, Vomiting, Constipation, Melena, Hematochezia, -, - Genitourinary: Denies: Dysuria, Hematuria, Frequency Musculoskeletal: Reports: Back pain, Extremity Pain. Denies: Myalgias, Arthralgias, Neck pain, Swelling, -, - Skin: Denies: Rash, Wounds Neurological: Reports: Weakness, Numbness. Denies: Headache, Parasthesia Psych: Reports: Depression, Anxiety. Denies: Suicidal thoughts Endocrine: Denies: Polyuria, Polydipsia Hematologic: Denies: Easy bruising, Easy bleeding Allergy: Denies: Uticaria, Swelling of the mouth Physical Exam Vital Signs/Narrative: Vital Signs Temp Pulse Resp BP Pulse Ox 11/15/20 10:39 97.9 F 80 16 127/67 H 99 11/15/20 10:34 97.9 F 80 16 127/67 H 99 Inital Vital Signs reviewed: Yes General: Well nourished, Well developed, Obese, No Acute Distress Head: Normocephalic, Atraumatic Eyes: Perrl, EOMI, - - There is no nystagmus. There is no APD.. Negative for: Pale conjunctiva, Scleral icterus ENT: Moist mucous membranes, No rhinorrhea Neck: Supple, Nontender, No lymphadenopathy, No JVD Cardiovascular: Regular rate, Regular rhythm, No murmurs, Normal S1, Normal S2 Respiratory: No distress, CTA bilaterally, Chest nontender Abdomen: Soft, Nontender, Nondistended, Normal bowel sounds, No masses Rectal: Deferred Back: Negative for: Nontender, Normal Inspection Extremities: Negative for: Nontender, No edema Skin: Normal color, No rash, No Trauma. Negative for: Cyanosis, Diaphoresis, Jaundice Neurological: Alert, Oriented x3, Cranial nerves II-XII grossly intact, Normal Strength, Normal Sensation, Normal DTR, - - Nicolle testing normal. Psychological: Depressed Diagnostic/Tx/Re-eval - Medical Decision Making With constellation of symptoms. Orthostatic vitals were obtained. Clinically she does not have evidence of benign paroxysmal vertigo with negative Hallpike maneuver. She had a recent MRI which eliminates possibility of cerebellar infarct since this has been going on for some time and acoustic neuroma. Also there was no evidence of normal pressure hydrocephalus. Or pseudotumor cerebri. Basic metabolic panel was obtained to assess renal function and specifically potassium because of reported diarrhea for 6 months. CBC to rule out anemia. I was informed at 1059 that patient was complaining of severe pain. Nurse was informed that we would adhere to her care plan. Laboratory Results 11/15/20 11/15/20 10:55 10:55 WBC 7.9 RBC 4.24 Hgb 12.3 Hct 38.1 MCV 89.9 MCH 29.0 MCHC 32.3 RDW Std Deviation 46.0 H RDW Coeff of Shun 14.3 Plt Count 256 MPV 10.0 Immature Gran % (Auto) 1.000 H Neut % (Auto) 49.7 Lymph % (Auto) 38.6 Keith % (Auto) 7.4 Eos % (Auto) 2.5 Baso % (Auto) 0.8 Absolute Neuts (auto) 3.9 Absolute Lymphs (auto) 3.06 Nucleated RBC % 0 Sodium 138 Potassium 3.8 Chloride 105 Carbon Dioxide 27.0 Anion Gap 6 BUN 12 Creatinine 0.94 Estim Creat Clear Calc 59.43 Est GFR (MDRD) Af Amer 85 Est GFR (MDRD) Non-Af 70 BUN/Creatinine Ratio 12.8 Glucose 96 Calcium 9.0 Laboratory tests are unremarkable. And blood pressure is stable. ED Disposition - Plan for ED Patient: Disposition: Home or Assisted Living Diagnosis: Positional lightheadedness, Recurrent syncope, Chronic diarrhea, Pain disorder Instructions: ED Dizziness, Uncertain Cause, ED Fainting, Uncertain Cause, ED Pain, Acute, Uncertain Cause Referrals: Marcelino Albert MD [Primary Care Provider] - Keep Lydia appointment
[2020-11-15 11:04] LABS: Absolute Lymphocyte Count 3.06 X10^3/uL (0.83-4.51); Absolute Neutrophil Count 3.9 X10^3/uL (2.0-7.7); Basophil# 0.06 X10^3/uL; Basophil% 0.8 % (0-1); Eosinophils% 2.5 % (0-5); Hematocrit 38.1 % (37-47); Hemoglobin 12.3 g/dL (12.0-15.0); Lymphocyte # 3.06 X10^3/ul (4.0); Lymphocyte % 38.6 % (19-41); Mean Corp Hgb Conc 32.3 g/dL (32-36); Mean Corpuscular Volume 89.9 fL (81-99); Monocyte# 0.59 X10^3/uL; Monocyte% 7.4 % (0-10); NRBC Flagged by Analyzer 0 % (0-5); Neutrophil # 3.93 X10^3/uL (2.7-7.7); Neutrophil % 49.7 % (47-70); Platelet Count 256 K/mm3 (150-450); RBC Distribution Width CV 14.3 % (11.6-14.6); Red Blood Count 4.24 M/mm3 (4.2-5.4); White Blood Count 7.9 K/mm3 (4.4-11.0)
--- NOTE | 2020-11-15 11:04 | ED.RN ---
PT REQUESTING PAIN MEDICATION. STATES HAVING SEVERE ABD PAIN
[2020-11-15 11:20] LABS: Anion Gap 6 (5-15); BUN 12 mg/dL (7-18); BUN/Creat Ratio 12.8 RATIO (10-20); Chloride 105 mmol/L (98-107); Creatinine, Serum 0.94 mg/dL (0.55-1.02); EST Glomerular Filtration Rate 70 mL/min (>60); Est Glom Filt Rate - Afr Amer 85 mL/min (>60); Estimated Creatinine Clearance 59.43 ml/min; Glucose 96 mg/dL (74-106); Potassium 3.8 mmol/L (3.5-5.1); Sodium Level 138 mmol/L (136-145)
--- NOTE | 2020-11-15 11:58 | ED.RN ---
UPON ENTERING ROOM. PT ALERT AND TALKING AND LAUGHING ON PHONE. PT HAS RIDE COMING
--- NOTE | 2020-11-15 12:07 | ED.RN ---
PT STATES . THE DR OFFICE JUST CALLED ME AND STATED, YOU NEED TO COME IN IMMEDIATELY FOR BLOOD WORK. THIS RN QUESTIONED PT. PT STATES OH IT IS NOT A TEST [facility] CAN DO. PT STATES SHE IS LEAVING AND WALKING OVER TO CC FOR BLOODWORK
[2020-11-15 12:09] VITALS: BP 125/60; PULSE 78; RESP 16; O2SAT 100
== END 2020-11-15 12:11 | disposition home or self-care (01) ==
PROVIDERS: Emergency Provider Emergency Medicine; PCP Family Medicine
DX: R42 Dizziness and giddiness (principal); R55 Syncope and collapse; R19.7 Diarrhea, unspecified; E66.9 Obesity, unspecified; E78.5 Hyperlipidemia, unspecified; F31.9 Bipolar disorder, unspecified; F41.9 Anxiety disorder, unspecified; K58.9 Irritable bowel syndrome, unspecified; F17.200 Nicotine dependence, unspecified, uncomplicated; Z85.42 Personal history of malignant neoplasm of other parts of uterus; Z87.11 Personal history of peptic ulcer disease; Z88.0 Allergy status to penicillin; Z88.1 Allergy status to other antibiotic agents; Z88.6 Allergy status to analgesic agent; Z88.8 Allergy status to other drugs, medicaments and biological substances; Z90.49 Acquired absence of other specified parts of digestive tract; Z90.710 Acquired absence of both cervix and uterus; Z90.721 Acquired absence of ovaries, unilateral
CPT/HCPCS: 80048; 85025; 99284; A4216

== ENCOUNTER 2020-12-15 16:44 | Emergency (ER) | payer MEDICAID, SELFPAY ==
[2020-11-19 13:32] VITALS: BMI 38.7
[2020-12-15 16:45] VITALS: BP 144/77; PULSE 100; RESP 18; TEMP 36.5; O2SAT 97; BMI 40.2
--- NOTE | 2020-12-15 17:06 | ED.RN ---
Pt requested to see the patient advocate related to how she had been treated in the past. There were no issues this visit and her interaction with the physician was timely and appropriate. She is aware and agreeable to the treatment discussed.
--- NOTE | 2020-12-15 17:08 | ED.DCSUM_ITS ---
History of Present Illness Chief Complaint: Abscess Informant: Patient Onset: Days Maximum Severity: Mild Narrative: Left breast infection for a few days she indicates that began with a small bump she somehow popped it has bruising hydrogen peroxide she went to a local [facility] urgent care the day was started on clindamycin, she indicates she could not be referred to a [facility] breast specialist, she is not taking any pain medicine she is taking the clindamycin she presents for evaluation. She has no history of MRSA or MRSA no trauma she is had prior mammograms are unremarkable she does not know why this red lesion would appear on the top of her left breast she has no other skin lesions she does have history of chronic unspecified abdominal pain not an issue today Past Medical History - Allergies and Home Meds Allergies/Adverse Reactions: Allergies ketorolac tromethamine [From Toradol] Allergy (Verified 12/15/20 16:48) Rash metronidazole [From Flagyl] Allergy (Verified 12/15/20 16:48) Hives Penicillins Allergy (Verified 12/15/20 16:48) Hives aspirin Adverse Reaction (Verified 12/15/20 16:48) Upset Stomach CT DYE Allergy (Uncoded 12/15/20 16:48) Anaphylaxis IV contrast Allergy (Uncoded 12/15/20 16:48) Anaphylaxis Primary Care Physician: Marcelino Albert MD [Primary Care Provider] - Past Medical History: - - Unspecified abdominal pain and as above Surgical History: cholecystectomy, hysterectomy, - - Oophorectomy Smoking Status: Current every day smoker Review of Systems General: Reports: - - She has a circular lesion the size of a nickel to a quarter to the top of the breast there is no fluctuance crepitance slight redness, she has been treating this area with hydrogen peroxide there is no regional adenopathy, no axial adenopathy, the nipple shows no drainage. Denies: Chills, Fever, Sweats Eyes: Denies: Visual changes - bilaterally, Diplopia ENT: Denies: Rhinorrhea, Sore throat Cardiovascular: Denies: Chest pain, Palpitations Respiratory: Denies: Dyspnea, Cough, Dyspnea on exertion Gastrointestinal: Denies: Abdominal pain, Nausea, Vomiting, Diarrhea, Melena, Hematochezia Genitourinary: Denies: Dysuria, Hematuria, Frequency Musculoskeletal: Denies: Back pain, Extremity Pain Skin: Denies: Rash, Wounds Neurological: Denies: Headache, Weakness, Numbness Physical Exam Vital Signs/Narrative: Vital Signs Temp Pulse Resp BP Pulse Ox 12/15/20 16:45 97.7 F L 100 18 144/77 H 97 General: Well nourished, Well developed, No Acute Distress, - - The above for breast exam Head: Normocephalic, Atraumatic Eyes: Perrl, EOMI ENT: Moist mucous membranes, No rhinorrhea Neck: Supple, Nontender Cardiovascular: Regular rate, Regular rhythm, No murmurs Respiratory: No distress, CTA bilaterally, Chest nontender Abdomen: Soft, Nontender, Nondistended, Normal bowel sounds Back: Nontender, Normal Inspection Extremities: Nontender, No edema Skin: Normal color, No rash Neurological: Alert, Oriented x3, Cranial nerves II-XII grossly intact, Normal Strength, Normal Sensation Psychological: Normal affect, Normal Mood Diagnostic/Tx/Re-eval - Medical Decision Making The patient appears to have breast cellulitis versus early abscess there is no palpable signs of abscess I do not know if possibly she is having more pain and redness because she has been cleansing this area with full-strength hydrogen peroxide which she been instructed to stop doing she was struck by wound care should continue clindamycin will add Bactrim Percocet for pain control she will be referred to [facility] for further management and return for change in symptoms she has no history of being immunocompromised, no history of MRSA or skin infections breast problems Home stable Final impression left breast cellulitis versus abscess ED Disposition - Plan for ED Patient: Diagnosis: Breast abscess Instructions: ED Abscess Antibiotic Treatment Only, ED Cellulitis Prescriptions: Smz/Tmp Ds [Bactrim Ds] 1 tablet PO BID #10 tab Prescription Printed Famotidine [Pepcid] 20 mg PO BID #28 tab Prescription Printed Referrals: Marcelino Albert MD [Primary Care Provider] - Deepa Gutierrez MD [STAFF PHYSICIAN] -
[2020-12-15 17:10] VITALS: BP 144/77; PULSE 100; RESP 18; TEMP 36.5; O2SAT 97
--- NOTE | 2020-12-15 17:18 | ED.DEP ---
ED Disposition - Plan for ED Patient: Diagnosis: Breast abscess Instructions: ED Abscess Antibiotic Treatment Only, ED Cellulitis Prescriptions: Smz/Tmp Ds [Bactrim Ds] 1 tablet PO BID #10 tab Prescription Printed Famotidine [Pepcid] 20 mg PO BID #28 tab Prescription Printed Oxycodone HCl/Acetaminophen [Percocet 5/325] 1 tablet PO Q6H PRN PRN 3 Days #12 tab PRN Reason: Pain Prescription Printed Referrals: Marcelino Albert MD [Primary Care Provider] - Deepa Gutierrez MD [STAFF PHYSICIAN] -
[2020-12-15] MEDS: Acetaminophen 500 MG Tablet 1000 MG PO (17:27)
[2020-12-15] MEDS: Smz/Tmp Ds Tablet 1 TABLET PO (17:27)
[2020-12-15 17:41] VITALS: RESP 16
== END 2020-12-15 17:41 | disposition home or self-care (01) ==
LOC: ED 17:37
PROVIDERS: Emergency Provider Emergency Medicine; PCP Family Medicine
DX: N61.1 Abscess of the breast and nipple (principal); F17.200 Nicotine dependence, unspecified, uncomplicated; Z88.0 Allergy status to penicillin; Z88.1 Allergy status to other antibiotic agents; Z88.6 Allergy status to analgesic agent; Z88.8 Allergy status to other drugs, medicaments and biological substances; Z90.49 Acquired absence of other specified parts of digestive tract; Z90.710 Acquired absence of both cervix and uterus; Z90.721 Acquired absence of ovaries, unilateral
CPT/HCPCS: 99283

== ENCOUNTER 2021-01-14 10:26 | Emergency (ER) | payer MEDICAID, SELFPAY ==
[2021-01-14 10:27] VITALS: BP 104/92; PULSE 96; RESP 19; TEMP 37; O2SAT 100; BMI 41.3
--- NOTE | 2021-01-14 10:35 | CT_ITS ---
STUDY: CT ABDOMEN AND PELVIS WITH CONTRAST REASON FOR EXAM: Female, 40 years old. Abdominal pain . Nausea and vomiting. -- IV PO Contrast RADIATION DOSAGE (If Supplied By Facility): CTDIvol = ( 14.94 ) mGy, DLP = ( 1218.83 ) mGycm TECHNIQUE: Transaxial images were obtained from the dome of the diaphragm to the symphysis pubis with oral contrast. Oral and amp; IV Gastrografin and amp; 100mL Isovue-300 was administered. Sagittal and coronal images were reconstructed. Individualized dose optimization techniques were used for this CT. COMPARISON: Comparison is made with prior study dated 06/17/2020. FINDINGS: The visualized lung bases are unremarkable. The visualized portions of the heart are within normal limits. There is decreased attenuation of the liver consistent with steatosis. Once again, scattered cysts are seen in both lobes of the liver. The previously seen hypodensity in the posterior aspect of the right lobe of the liver with the air within it as resolved. This most likely extends drainage of the cyst or abscess. Normal gallbladder and extrahepatic biliary system. Normal spleen. Normal pancreas. Normal bilateral adrenal glands. Normal right kidney. Normal left kidney. Normal visualized stomach. Normal small intestine. Gas and fecal material is seen throughout the colon. There is non-visualization of the appendix. Normal abdominal aorta. Normal inferior vena cava. Normal retroperitoneum. Normal urinary bladder. There is absence of the uterus consistent with a prior hysterectomy. There is a small umbilical hernia containing fat. Straightening of the normal lumbar lordosis. CT/Abdomen/Pelvis WITH Contrast IMPRESSION: Hepatic cysts. The previously seen complicated cyst along the posterior aspect of the right lobe of the liver has cleared. Electronically Signed: Genaro Hines MD at 12:50 EDT , Service support ,
--- NOTE | 2021-01-14 10:37 | ED.VIS.GI ---
HPI HPI - GI History of Present Illness Chief Complaint: Nausea/Vomiting Detail of Chief Complaint: Patient presents with abdominal pain and vomiting that started around 9:30 Informant: patient Abdominal Pain/Flank Pain Onset: Today Quality: Cramping and Sharp Location: RUQ Current Severity: 10/10 Nausea/Vomiting/Emesis GI Symptom: Positive for Nausea and Vomiting Narrative Narrative: Patient presents from home via EMS with abdominal pain that started around 9:30 AM. Patient states that he has been bloated for a couple of days. She vomited 1 time and it was brown-colored. She continues to feel nauseated. She rates her pain a 10 out of 10. Pains in the right upper quadrant. She is had pain like this in the past and recently had pancreatitis. Patient also has prior history of kidney stones. Patient's had prior cholecystectomy and hysterectomy. Patient denies urinary symptoms. She denies any blood in her stool or black tarry stool. She denies hematemesis. She denies diarrhea. Prior similar symptoms: Yes [facility] Medical History (Updated 01/14/21 @ 13:[address] Vaisliy Mcdermott, ) Chronic pain History of renal calculi History of uterine cancer (2006) Hyperlipidemia Incomplete right bundle branch block Lung nodule Migraine Obesity Ovarian cyst Right tubo-ovarian mass Ureteral stone with hydronephrosis Home Medications prazosin 1 mg PO QHS 03/26/20 [History Last Taken Unknown] gabapentin 1 - 2 mg PO Q4H PRN PRN 10/03/20 [History Last Taken Unknown] hydroxyzine HCl 50 mg PO QHS 10/03/20 [History Last Taken Unknown] omeprazole magnesium 20 mg PO DAILY 10/03/20 [History Last Taken Unknown] sucralfate 1 gm PO DAILY 10/03/20 [History Last Taken Unknown] buspirone 10 mg tablet 10 mg PO BID 11/19/20 [History Last Taken Unknown] mecobalamin (vitamin B12) 1,000 mcg chewable tablet 1,000 mcg PO DAILY 11/19/20 [History Last Taken Unknown] famotidine 20 mg PO BID #28 tab 12/15/20 [Rx Last Taken Unknown] sulfamethoxazole-trimethoprim 1 tablet PO BID #10 tab 12/15/20 [Rx Last Taken Unknown] ondansetron 4 mg PO Q8H PRN 4 Days tab 01/14/21 [Rx Last Taken Unknown] Allergy/AdvReac Type Severity Reaction Status Date / Time ketorolac tromethamine Allergy Rash Verified 01/14/21 11:02 [From Toradol] metronidazole [From Flagyl] Allergy Hives Verified 01/14/21 11:02 Penicillins Allergy Hives Verified 01/14/21 11:02 aspirin AdvReac Upset Verified 01/14/21 11:[address] DYE Allergy Anaphylaxis Uncoded 01/14/21 11:02 IV contrast Allergy Anaphylaxis Uncoded 01/14/21 11:02 Family History Aunt Breast cancer Grandfather CAD (coronary artery disease) Father Heart disease, Onset Age: 73 Triple bypass Mother Heart disease, Onset Age: 62 Other Diabetes Surgical History H/O ovarian cystectomy (09/2019) History of bilateral oophorectomy History of hysterectomy History of tubal ligation Social History (Updated 11/20/20 @ 10:08 by Ramone Caballero NP, [employer]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[employer]) Smoking Status: Unknown if ever smoked Tobacco: How many years used: 15 ROS ROS ED Constitutional Constitutional ED: Reports systems reviewed and no addt'l complaints, except as documented; Denies body ache(s), change in weight or chills Eyes Eyes: Denies acute decrease in peripheral vision, change in vision, double vision or loss of vision ENT ENT ED: Reports none; Denies ear pain, lip swelling, loss taste/smell, neck pain, otalgia or sore throat Cardiovascular Cardiovascular: Reports none; Denies abdominal pain, chest pain with activity, leg edema, lightheadedness, palpitations, rapid heart rate or syncope Respiratory/Chest Respiratory/Chest: Reports none; Denies change in mental status, dry cough, dyspnea, hemoptysis, shortness of breath at rest or shortness of breath with exertion Gastrointestinal Gastrointestinal: Reports none, abdominal pain, nausea and vomiting; Denies change in stool character, diarrhea, hematemesis, hematochezia, melena or rectal bleeding Genitourinary Genitourinary ED: Reports none; Denies abdominal discomfort, anuria, dysuria, genital pain or polyuria Musculoskeletal Musculoskeletal: Reports none; Denies arthralgias, back pain, difficulty walking, extremity pain, muscle weakness or myalgias Integumentary Reports none; Denies abscess or rash Neurologic Neurologic: Reports none; Denies abnormal gait, confusion, focal weakness, frequent falls, headache(s), loss of vision, numbness, paresthesias, radicular pain, vertigo or weakness Psychiatric Psychiatric: Reports systems reviewed and no addt'l complaints, except as documented and none; Denies behavioral changes, confusion, difficulty concentrating, hallucinations, suicidal ideation, tactile hallucinations or visual hallucinations Endocrine Endocrinology: Denies none, cold intolerance, excessive sweating, fatigue or heat intolerance Hematologic/Lymphatic Hematologic/Lymphatic: Reports none; Denies anemia, easy bleeding or easy bruising Allergic/Immunologic Allergic/Immunologic ED: Denies as per HPI, none, lip swelling, mouth swelling, throat swelling, tongue swelling or hives EXAM Physical Exam Const Vital Signs: 01/14/21 10:27 Temperature 98.6 F Temperature Source Oral Pulse Rate 96 Respiratory Rate 19 H Blood Pressure 104/92 H Blood Pressure Mean 96 Pulse Ox 100 Oxygen Delivery Method Room Air Positive well nourished and well developed General Appearance ED: well developed and NAD HEENT Reports TM's clear and moist mucous membranes normocephalic and atraumatic; Negative for trauma or tenderness Tympanic Membrane ED: Yes TM's clear Eyes PERRL and EOMs intact bilaterally General Eye ED: Negative for pale conjunctiva or scleral icterus Neck no lymphadenopathy, supple and no JVD General: Negative for tenderness Chest Wall inspection of chest normal and palpation of chest normal Chest: Negative for tenderness Resp normal respiratory effort and clear to auscultation bilaterally Effort and Inspection: Negative for respiratory distress or pain with movement Auscultation: Negative for rhonchi, wheezes or diminished lung sounds Cardio regular rate, regular rhythm, S1 normal heart sound, S2 normal heart sound and no murmurs Peripheral Pulses: pulses 2+ throughout GI normal to inspection, nondistended, normoactive bowel sounds, soft to palpation, non-distended and no masses Inspection: Negative for abdominal distention Auscultation: Negative for hypoactive bowel sounds Palpation: tender RUQ and guarding; Negative for pulsatile mass Back/Spine no CVA tenderness and no thoracic nor lumbar tenderness Extremity normal to inspection General Extremety ED: Negative for edema General Extremity: Negative for edema Neuro oriented x3, CN's II-XII intact bilaterally, no sensory deficits noted and gait normal Sensorium / Orientation: awake, alert, oriented to person, oriented to place and oriented to time Motor Exam: strength 5/5 throughout and strength abnormal Psych mental status grossly normal Skin no rashes or lesions noted and no wounds MDM MDM MDM Narrative Medical decision making narrative: While in the department patient was medicated with milligram of Dilaudid and Zofran for good pain relief with that. Lab work and CT scan of the abdomen pelvis obtained were essentially unremarkable. At this point I feel patient can be discharged home safely. She is advised to follow-up with a primary care physician within next 3 to 5 days. She is to return if worsening pain, fever, vomiting, or condition should worsen anyway. Patient will be given a prescription for Zofran. Lab Data Attestation: I reviewed the patient's lab results. Labs: Laboratory Results - last 24 hr 01/14/21 01/14/21 01/14/21 10:51 11:00 11:00 WBC 12.0 H RBC 4.78 Hgb 13.5 Hct 41.9 MCV 87.7 MCH 28.2 MCHC 32.2 RDW Std Deviation 43.4 RDW Coeff of Shun 13.5 Plt Count 256 MPV 10.5 Immature Gran % (Auto) 2.300 H Neut % (Auto) 84.3 H Lymph % (Auto) 8.3 L [place] % (Auto) 3.7 Eos % (Auto) 1.0 Baso % (Auto) 0.4 Absolute Neuts (auto) 10.1 H Absolute Lymphs (auto) 1.00 Nucleated RBC % 0 Sodium 138 Potassium 4.6 Chloride 105 Carbon Dioxide 25.0 Anion Gap 8 BUN 24 H Creatinine 1.03 H Estim Creat Clear Calc 54.24 Est GFR (MDRD) Af Amer 76 Est GFR (MDRD) Non-Af 63 BUN/Creatinine Ratio 23.3 H Glucose 102 Lactic Acid Calcium 8.6 Total Bilirubin 0.70 AST 29 ALT 28 Alkaline Phosphatase 148 H Total Protein 8.3 H Albumin 3.8 Globulin 4.5 H Albumin/Globulin Ratio 0.8 L Lipase 78 Urine Color Yellow Urine Clarity Sl. Cloudy Urine pH 5.0 Ur Specific [place] 1.020 Urine Protein Negative Urine Glucose (UA) Normal Urine Ketones Negative Urine Occult Blood 10 H Urine Nitrite Negative Urine Bilirubin Negative Urine Urobilinogen Normal Ur Leukocyte Esterase Negative Urine RBC 0 SEEN Urine WBC 0 SEEN Ur Squamous Epith Cells 0-5 SEEN Urine Bacteria RARE Urine Mucus RARE 01/14/21 11:00 WBC RBC Hgb Hct MCV MCH MCHC RDW Std Deviation RDW Coeff of Shun Plt Count MPV Immature Gran % (Auto) Neut % (Auto) Lymph % (Auto) [place] % (Auto) Eos % (Auto) Baso % (Auto) Absolute Neuts (auto) Absolute Lymphs (auto) Nucleated RBC % Sodium Potassium Chloride Carbon Dioxide Anion Gap BUN Creatinine Estim Creat Clear Calc Est GFR (MDRD) Af Amer Est GFR (MDRD) Non-Af BUN/Creatinine Ratio Glucose Lactic Acid 1.3 Calcium Total Bilirubin AST ALT Alkaline Phosphatase Total Protein Albumin Globulin Albumin/Globulin Ratio Lipase Urine Color Urine Clarity Urine pH Ur Specific [place] Urine Protein Urine Glucose (UA) Urine Ketones Urine Occult Blood Urine Nitrite Urine Bilirubin Urine Urobilinogen Ur Leukocyte Esterase Urine RBC Urine WBC Ur Squamous Epith Cells Urine Bacteria Urine Mucus Radiography Diagnostic Testing: Radiology Impression Abdomen/Pelvis CT 01/14/21 10:35 IMPRESSION: Hepatic cysts. The previously seen complicated cyst along the posterior aspect of the right lobe of the liver has cleared. Electronically Signed: Genaro Hines MD at 12:50 EDT , Service support , Discharge Plan Triage Chief Complaint: Nausea/Vomiting ED Provider: Vasiliy Mcdermott Dx/Rx/DC Orders Clinical Impression: Abdominal pain, Vomiting Instructions: ED Abdominal Pain Unkn Cause Fem Prescriptions: New ondansetron 4 mg tablet,disintegrating 4 mg PO Q8H PRN (Reason: nausea and vomiting) 4 Days RF: 0 No Action mecobalamin (vitamin B12) 1,000 mcg tablet,chewable 1,000 mcg PO DAILY RF: 0 buspirone 10 mg tablet 10 mg PO BID RF: 0 prazosin 1 MG capsule 1 mg PO QHS RF: 0 sucralfate 1 GM tablet 1 gm PO DAILY RF: 0 gabapentin 400 MG capsule 1 - 2 mg PO Q4H PRN PRN (Reason: Headache) RF: 0 hydroxyzine HCl 50 MG tablet 50 mg PO QHS RF: 0 omeprazole magnesium 20 MG tablet,delayed release (DR/EC) 20 mg PO DAILY RF: 0 sulfamethoxazole-trimethoprim 1 TABLET tablet 1 tablet PO BID Qty: 10 RF: 0 famotidine 20 MG tablet 20 mg PO BID Qty: 28 RF: 0 Primary Care Provider: Marcelino Albert Referrals: Marcelino Albert MD [Primary Care Provider] -
[2021-01-14 10:59] LABS: Red Blood Cells-Urine 0 SEEN /hpf (0-5); White Blood Cells 0 SEEN /hpf (0-5)
[2021-01-14] MEDS: Ondansetron 4 MG/2 ML Vial IV (11:03)
[2021-01-14] MEDS: MethylPREDNISolone 125 MG/2 ML Vial IV (11:03)
[2021-01-14] MEDS: DiphenhydrAMINE 50 MG/ML Syringe IV (11:03)
[2021-01-14 11:08] LABS: Color, Urine Yellow (Yellow); Glucose, Dipstick Normal (Normal); Ketone-Dipstick Negative (Negative); Leukocyte Esterase-Dipstick Negative /ul (Negative); Nitrite-Dipstick Negative (Negative); Occult Blood-Urine 10 /ul (Negative); Protein-Dipstick Negative (Negative); Urine Bilirubin Dipstick Negative (Negative); Urine Clarity Sl. Cloudy (Clear); Urine Urobilinogen Normal (Normal)
[2021-01-14] MEDS: 0.9% Normal Saline 1,000 ML 125 ML IV (11:08)
[2021-01-14] MEDS: HYDROmorphone 1 MG/ML Syringe IV (11:08)
[2021-01-14 11:14] LABS: Bacteria RARE /hpf (None Seen); Mucous, Urine RARE /hpf (<or=2+); Squamous Epithelial Cells - UA 0-5 SEEN /hpf (5-10)
[2021-01-14 11:19] LABS: Absolute Neutrophil Count 10.1 X10^3/uL (2.0-7.7); Basophil# 0.05 X10^3/uL; Basophil% 0.4 % (0-1); Eosinophil# 0.12 X10^3/uL; Hematocrit 41.9 % (37-47); Hemoglobin 13.5 g/dL (12.0-15.0); Lymphocyte % 8.3 % (19-41); Mean Corp Hgb Conc 32.2 g/dL (32-36); Mean Corpuscular Hgb 28.2 pg (27.0-32.0); Mean Corpuscular Volume 87.7 fL (81-99); Mean Platelet Vol. 10.5 fl (6.2-12.0); Monocyte# 0.44 X10^3/uL; Monocyte% 3.7 % (0-10); NRBC Flagged by Analyzer 0 % (0-5); Neutrophil # 10.11 X10^3/uL (2.7-7.7); Neutrophil % 84.3 % (47-70); Platelet Count 256 K/mm3 (150-450); RBC Distribution Width CV 13.5 % (11.6-14.6); RBC Distribution Width SD 43.4 fl (35.1-43.9); Red Blood Count 4.78 M/mm3 (4.2-5.4)
[2021-01-14 11:39] LABS: ALB/GLOB Ratio 0.8 RATIO (0.9-2.4); AST(SGOT) 29 U/L (15-37); Alanine Aminotransfer ALT/SGPT 28 U/L (13-56); Albumin, Serum 3.8 g/dL (3.2-5.0); Alkaline Phosphatase 148 U/L (45-117); Anion Gap 8 (5-15); BUN 24 mg/dL (7-18); BUN/Creat Ratio 23.3 RATIO (10-20); Calcium,Total 8.6 mg/dL (8.5-10.1); Chloride 105 mmol/L (98-107); Creatinine, Serum 1.03 mg/dL (0.55-1.02); EST Glomerular Filtration Rate 63 mL/min (>60); Est Glom Filt Rate - Afr Amer 76 mL/min (>60); Estimated Creatinine Clearance 54.24 ml/min; Globulin 4.5 g/dL (2.2-4.2); Glucose 102 mg/dL (74-106); Lipase 78 U/L (73-393); Potassium 4.6 mmol/L (3.5-5.1); Protein, Total 8.3 g/dL (6.4-8.2); Sodium Level 138 mmol/L (136-145)
[2021-01-14 11:57] LABS: Lactic Acid 1.3 mmol/L (0.4-1.9)
[2021-01-14 14:04] VITALS: BP 138/80; PULSE 80; RESP 18; O2SAT 98
== END 2021-01-14 14:06 | disposition home or self-care (01) ==
PROVIDERS: Emergency Provider Emergency Medicine; PCP Family Medicine
DX: R10.9 Unspecified abdominal pain (principal); R11.2 Nausea with vomiting, unspecified; K76.89 Other specified diseases of liver; E78.5 Hyperlipidemia, unspecified; G89.29 Other chronic pain; Z79.1 Long term (current) use of non-steroidal anti-inflammatories (NSAID); Z79.82 Long term (current) use of aspirin; Z85.42 Personal history of malignant neoplasm of other parts of uterus; Z87.19 Personal history of other diseases of the digestive system; Z87.442 Personal history of urinary calculi; Z90.49 Acquired absence of other specified parts of digestive tract
CPT/HCPCS: 74177; 80053; 81001; 83605; 83690; 85025; 96361; 96374; 96375; 99285; J7030; Q9967; A4216; J2405

== ENCOUNTER → 2021-02-26 09:44 | Outpatient (CLI) | payer MEDICAID, SELFPAY ==
[2020-11-19 13:32] VITALS: BMI 38.7
--- NOTE | 2021-02-26 17:40 | STRESSREP ---
Stress Test Report Exercise stress test. 40-year-old lady with a history of chest pain. Stress protocol: Resting EKG demonstrates normal sinus rhythm with a rate of 71 bpm normal intervals are noted resting blood pressure is 136/74 mmHg. The patient exercised according to the regular Edwin protocol for total duration of 3 minutes. The maximum heart rate attained was 116 bpm which was 64% of maximum predicted heart rate the maximum workload was 4.7 metabolic equivalents. At rest there were no ST or T wave changes noted to suggest ischemia and at peak exercise upsloping ST changes were noted with did not meet the criteria for ischemia. The test was terminated due to dyspnea and the patient wanting to stop. The peak blood pressure was 146/72 mmHg. No arrhythmias were noted. Conclusion: Exercise stress test suboptimal for detection of ischemia at a low workload. Marked functional aerobic impairment.
== END ==
PROVIDERS: PCP Family Medicine; Referring Provider Nurse Practitioner Family; Visit Provider Nurse Practitioner Family
DX: R06.00 Dyspnea, unspecified (principal); I45.10 Unspecified right bundle-branch block; R07.9 Chest pain, unspecified; R42 Dizziness and giddiness; R55 Syncope and collapse
CPT/HCPCS: 93017; 93225; 93226

== ENCOUNTER 2021-02-27 16:58 | Emergency (ER) | payer MEDICAID, SELFPAY ==
[2021-02-27 16:59] VITALS: BP 156/81; PULSE 85; RESP 16; TEMP 35.7; O2SAT 97; BMI 39.4
--- NOTE | 2021-02-27 17:02 | ED.RN ---
STATES GWEN CRUZ CALLED TO BE PRESENT ANYTIME A DR SEES HER BECAUSE OF THE BAD TREATMENT SHE HAS HAD IN THE PAST. [facility] DRS HAVE CALLED HER A LIAR AND SUCH. INFORMED ANTHONY IS NOT PRESENT BUT WILL NOTIFY THE CHARGE NURSE.
--- NOTE | 2021-02-27 17:10 | ED.RN ---
THIS NURSE PRESENT IN ROOM DURING DR EXAM. NO INAPPROPRAITE BEHAVIOR WAS NOTED. PT AWARE XRAY WILL BE DONE AND LOOKED AT. PTS BED ARIL PUT UP AND CALL KATHLEEN WAS GIVEN
--- NOTE | 2021-02-27 17:10 | ED.VIS.LOWEX ---
HPI History of Present Illness Chief Complaint: Lower Extremity Injury Informant: patient Narrative Narrative: History was obtained and the patient examined while in the presence of 2 nurses. 40-year-old female states she was getting out of her shower when she slipped falling down twisting the left ankle. She notes medial swelling and pain. She has been able to bear weight but painfully. [facility] Medical History (Updated 02/27/21 @ 17:[address] Mac Whitmore, DO) Chronic pain History of renal calculi History of uterine cancer (2006) Hyperlipidemia Incomplete right bundle branch block Lung nodule Migraine Obesity Ovarian cyst Right tubo-ovarian mass Ureteral stone with hydronephrosis Home Medications prazosin 1 mg PO QHS 03/26/20 [History Last Taken Unknown] gabapentin 1 - 2 mg PO Q4H PRN PRN 10/03/20 [History Last Taken Unknown] hydroxyzine HCl 50 mg PO QHS 10/03/20 [History Last Taken Unknown] omeprazole magnesium 20 mg PO DAILY 10/03/20 [History Last Taken Unknown] sucralfate 1 gm PO DAILY 10/03/20 [History Last Taken Unknown] buspirone 10 mg tablet 10 mg PO BID 11/19/20 [History Last Taken Unknown] mecobalamin (vitamin B12) 1,000 mcg chewable tablet 1,000 mcg PO DAILY 11/19/20 [History Last Taken Unknown] famotidine 20 mg PO BID #28 tab 12/15/20 [Rx Last Taken Unknown] ondansetron 4 mg PO Q8H PRN 4 Days tab 01/14/21 [Rx Last Taken Unknown] mupirocin calcium 1 applic TOPICAL BID 02/27/21 [History Last Taken Unknown] paroxetine HCl 10 mg PO DAILY 02/27/21 [History Last Taken Unknown] Allergy/AdvReac Type Severity Reaction Status Date / Time ketorolac tromethamine Allergy Rash Verified 02/27/21 17:01 [From Toradol] metronidazole [From Flagyl] Allergy Hives Verified 02/27/21 17:01 Penicillins Allergy Hives Verified 02/27/21 17:01 aspirin AdvReac Upset Verified 02/27/21 17:[address] DYE Allergy Anaphylaxis Uncoded 02/27/21 17:01 IV contrast Allergy Anaphylaxis Uncoded 02/27/21 17:01 Family History Aunt Breast cancer Grandfather CAD (coronary artery disease) Father Heart disease, Onset Age: 73 Triple bypass Mother Heart disease, Onset Age: 62 Other Diabetes Surgical History H/O ovarian cystectomy (09/2019) History of bilateral oophorectomy History of hysterectomy History of tubal ligation Social History Smoking Status: Unknown if ever smoked Tobacco: How many years used: 15 ROS ROS ED Constitutional Constitutional ED: Denies chills or weight loss Eyes Eyes: Denies change in vision or diplopia ENT ENT ED: Denies ear pain, rhinorrhea or sore throat Cardiovascular Cardiovascular: Denies chest pain, orthopnea, palpitations or racing heartbeat Respiratory/Chest Respiratory/Chest: Denies cough, dyspnea or orthopnea Gastrointestinal Gastrointestinal: Denies abdominal pain, diarrhea, nausea or vomiting Genitourinary Genitourinary ED: Denies dysuria, hematuria or urinary frequency Musculoskeletal Musculoskeletal: Reports other Details: Left ankle pain ; Denies arthralgias or myalgias Integumentary Denies abscess or rash Neurologic Neurologic: Denies headache(s) or weakness Psychiatric Psychiatric: Denies anxiety, depression, suicidal ideation or suicidal thoughts Endocrine Endocrinology: Denies polydipsia, polyphagia or polyuria Allergic/Immunologic Allergic/Immunologic ED: Denies mouth swelling, tongue swelling or urticaria EXAM Physical Exam Const Vital Signs: 02/27/21 16:59 Temperature 96.2 F L Temperature Source Temporal Pulse Rate 85 Respiratory Rate 16 Blood Pressure 156/81 H Blood Pressure Mean 106 Pulse Ox 97 Oxygen Delivery Method Room Air Positive well nourished and well developed General Appearance ED: well developed HEENT Reports normocephalic, head/scalp atraumatic and moist mucous membranes Eyes PERRL and EOMs intact bilaterally Neck no lymphadenopathy, supple and no JVD Resp normal respiratory effort and clear to auscultation bilaterally Cardio regular rate, regular rhythm and no murmurs GI normal to inspection, nondistended, normoactive bowel sounds and non-tender Palpation: soft Back/Spine no CVA tenderness and normal ROM Extremity Extremity Narrative: Patient reports painful range of motion. She reports tenderness and mild swelling over the medial malleolus and just inferior to it of the left foot and ankle. Neurovascular intact distal. General Extremety ED: Negative for edema General Extremity: Negative for edema Neuro oriented x3 and CN's II-XII intact bilaterally Sensorium / Orientation: alert Motor Exam: strength 5/5 throughout Psych mental status grossly normal Mood & Affect: Negative for depressed or tearful Skin no rashes or lesions noted and no wounds MDM MDM MDM Narrative Medical decision making narrative: My interpretation of the plain films of the left ankle is no acute fracture. Patient will be treated as an ankle sprain with Chemo wrap ice Motrin. Follow-up as needed return if worsening or concerns Radiography Diagnostic Testing: Radiology Impression Ankle X-Ray 02/27/21 17:12 IMPRESSION: Calcaneal spurs, otherwise unremarkable left ankle Electronically Signed: Flavio Calles MD at 17:31 EDT , Service support , Discharge Plan Triage Chief Complaint: Lower Extremity Injury ED Provider: Mac Whitmore Dx/Rx/DC Orders Clinical Impression: Left ankle sprain Instructions: ED Ankle Sprain (Adult) Prescriptions: No Action mecobalamin (vitamin B12) 1,000 mcg tablet,chewable 1,000 mcg PO DAILY RF: 0 buspirone 10 mg tablet 10 mg PO BID RF: 0 prazosin 1 MG capsule 1 mg PO QHS RF: 0 sucralfate 1 GM tablet 1 gm PO DAILY RF: 0 gabapentin 400 MG capsule 1 - 2 mg PO Q4H PRN PRN (Reason: Headache) RF: 0 hydroxyzine HCl 50 MG tablet 50 mg PO QHS RF: 0 omeprazole magnesium 20 MG tablet,delayed release (DR/EC) 20 mg PO DAILY RF: 0 famotidine 20 MG tablet 20 mg PO BID Qty: 28 RF: 0 ondansetron 4 mg tablet,disintegrating 4 mg PO Q8H PRN (Reason: nausea and vomiting) 4 Days RF: 0 paroxetine HCl 10 mg tablet 10 mg PO DAILY RF: 0 mupirocin calcium 2 % cream 1 applic TOPICAL BID RF: 0 Primary Care Provider: Marcelino Albert Referrals: Marcelino Albert MD [Primary Care Provider] - 10-14 Days if not better Disposition Disposition: Home, self care
--- NOTE | 2021-02-27 17:12 | RAD_ITS ---
STUDY: X-RAY - LEFT ANKLE REASON FOR EXAM: Female, 40 years old. Pain after trauma TECHNIQUE: 3 view(s) of the ankle. COMPARISON: None. FINDINGS: Normal visualized distal tibia and fibula. Normal medial and lateral malleoli. Normal tibiotalar articulation and ankle mortise. Normal visualized talus. Calcaneal spurs The visualized subtalar, talonavicular, calcaneocuboid and tarsal articulations are normal. The soft tissue structures are unremarkable. RAD/Ankle min 3 Views IMPRESSION: Calcaneal spurs, otherwise unremarkable left ankle Electronically Signed: Flavio Calles MD at 17:31 EDT , Service support ,
== END 2021-02-27 17:50 | disposition home or self-care (01) ==
LOC: ED 17:44
PROVIDERS: Emergency Provider Emergency Medicine; PCP Family Medicine
DX: S93.402A Sprain of unspecified ligament of left ankle, initial encounter (principal); W01.0XXA Fall on same level from slipping, tripping and stumbling without subsequent striking against object, initial encounter; M77.32 Calcaneal spur, left foot; N13.2 Hydronephrosis with renal and ureteral calculous obstruction; G89.29 Other chronic pain; N83.209 Unspecified ovarian cyst, unspecified side; E78.5 Hyperlipidemia, unspecified; Z79.1 Long term (current) use of non-steroidal anti-inflammatories (NSAID); Z79.82 Long term (current) use of aspirin; Z79.899 Other long term (current) drug therapy; Z85.42 Personal history of malignant neoplasm of other parts of uterus; Z87.442 Personal history of urinary calculi
CPT/HCPCS: 73610; 99282

== ENCOUNTER 2021-04-10 21:16 | Emergency (ER) | payer MEDICAID, SELFPAY ==
[2021-03-26 10:06] VITALS: BMI 39.4
[2021-04-10 21:17] VITALS: BP 133/85; PULSE 71; RESP 16; TEMP 36.5; O2SAT 99; BMI 38.7
--- NOTE | 2021-04-10 21:22 | CM.ED ---
SOCIAL WORK Active ED Care Plan Patient with active ED Care Plan. Physicians and nurse, Charles aware of ED Care Plan. This worker to remain available for needs. Shana Cochran, WINDOW MAKER, [employer]
--- NOTE | 2021-04-10 21:52 | ED.VIS.DENTA ---
HPI History of Present Illness Chief Complaint: Dental Informant: patient Narrative Narrative: 40-year-old female presents to the emergency department with dental pain. She has a care plan patient. The patient history and physical was taken in the presence of female nurse. The patient states that she has been told she needs to have her teeth pulled she states that she has an appointment next Thursday with a new dentist to get a referral to a oral surgeon. She states that she is only been taking Tylenol for the pain because of her stomach issues. No fevers. She notes some swelling of the face but no redness PFSH [facility] Medical History Chronic pain History of renal calculi History of uterine cancer (2006) Hyperlipidemia Incomplete right bundle branch block Lung nodule Migraine Obesity Ovarian cyst Right tubo-ovarian mass Ureteral stone with hydronephrosis Home Medications prazosin 1 mg PO QHS 03/26/20 [History Last Taken Unknown] gabapentin 800 mg PO TID 10/03/20 [History Last Taken Unknown] hydroxyzine HCl 50 mg PO QHS 10/03/20 [History Last Taken Unknown] omeprazole magnesium 20 mg PO DAILY 10/03/20 [History Last Taken Unknown] sucralfate 1 g PO DAILY 10/03/20 [History Last Taken Unknown] buspirone 10 mg tablet 10 mg PO BID 11/19/20 [History Last Taken Unknown] famotidine 20 mg PO BID #28 tab 12/15/20 [Rx Last Taken Unknown] ondansetron 4 mg PO Q8H PRN 4 Days tab 01/14/21 [Rx Last Taken Unknown] paroxetine HCl 10 mg PO DAILY 02/27/21 [History Last Taken Unknown] clindamycin HCl 300 mg PO 4X/DAY #80 capsule 04/10/21 [Rx Last Taken Unknown] Allergy/AdvReac Type Severity Reaction Status Date / Time ketorolac tromethamine Allergy Rash Verified 04/10/21 21:18 [From Toradol] metronidazole [From Flagyl] Allergy Hives Verified 04/10/21 21:18 Penicillins Allergy Hives Verified 04/10/21 21:18 aspirin AdvReac Upset Verified 04/10/21 21:[address] DYE Allergy Anaphylaxis Uncoded 04/10/21 21:18 IV contrast Allergy Anaphylaxis Uncoded 04/10/21 21:18 Family History Aunt Breast cancer Grandfather CAD (coronary artery disease) Father Heart disease, Onset Age: 73 Triple bypass Mother Heart disease, Onset Age: 62 Other Diabetes Surgical History H/O ovarian cystectomy (09/2019) History of bilateral oophorectomy History of hysterectomy History of tubal ligation Social History Smoking Status: Current every day smoker tobacco type: cigarettes Tobacco: How many years used: 15 ROS ROS ED Constitutional Constitutional ED: Denies chills or weight loss Eyes Eyes: Denies change in vision or diplopia ENT ENT ED: Reports other Details: Dental pain ; Denies ear pain, rhinorrhea or sore throat Cardiovascular Cardiovascular: Denies chest pain, orthopnea, palpitations or racing heartbeat Respiratory/Chest Respiratory/Chest: Denies cough, dyspnea or orthopnea Gastrointestinal Gastrointestinal: Denies abdominal pain, diarrhea, nausea or vomiting Genitourinary Genitourinary ED: Denies dysuria, hematuria or urinary frequency Musculoskeletal Musculoskeletal: Denies arthralgias or myalgias Integumentary Denies abscess or rash Neurologic Neurologic: Denies headache(s) or weakness Psychiatric Psychiatric: Denies anxiety, depression, suicidal ideation or suicidal thoughts Endocrine Endocrinology: Denies polydipsia, polyphagia or polyuria Allergic/Immunologic Allergic/Immunologic ED: Denies mouth swelling, tongue swelling or urticaria EXAM Physical Exam Const Vital Signs: 04/10/21 21:17 Temperature 97.7 F L Temperature Source Temporal Pulse Rate 71 Respiratory Rate 16 Blood Pressure 133/85 H Blood Pressure Mean 101 Pulse Ox 99 Oxygen Delivery Method Room Air Positive well nourished and well developed General Appearance ED: well developed HEENT Reports normocephalic, head/scalp atraumatic and moist mucous membranes HEENT Narrative: The remaining right lower posterior molar demonstrates gum swelling around it. There is no obvious straight other drainable abscess. Tender to palpation. There is significant decay. Patient is a dentulous on the top. There is only a handful of few remaining teeth and these are significantly decayed as well. Eyes PERRL and EOMs intact bilaterally Neck no lymphadenopathy, supple and no JVD Resp normal respiratory effort and clear to auscultation bilaterally Cardio regular rate, regular rhythm and no murmurs GI normal to inspection, nondistended, normoactive bowel sounds and non-tender Palpation: soft Back/Spine no CVA tenderness and normal ROM Extremity normal to inspection General Extremety ED: Negative for edema General Extremity: Negative for edema Neuro oriented x3 and CN's II-XII intact bilaterally Sensorium / Orientation: alert Motor Exam: strength 5/5 throughout Psych mental status grossly normal Mood & Affect: Negative for depressed or tearful Skin no rashes or lesions noted and no wounds MDM MDM MDM Narrative Medical decision making narrative: Patient was started on clindamycin with her first dose here as well as a dose of tramadol. Follow-up with dentistry Discharge Plan Triage Chief Complaint: Dental ED Provider: Mac Whitmore Dx/Rx/DC Orders Clinical Impression: Abscess, dental Instructions: Dental Abscess Prescriptions: New clindamycin HCl 150 MG capsule 300 mg PO 4X/DAY Qty: 80 RF: 0 No Action buspirone 10 mg tablet 10 mg PO BID RF: 0 prazosin 1 MG capsule 1 mg PO QHS RF: 0 sucralfate 1 GM tablet 1 g PO DAILY RF: 0 gabapentin 400 MG capsule 800 mg PO TID RF: 0 hydroxyzine HCl 50 MG tablet 50 mg PO QHS RF: 0 omeprazole magnesium 20 MG tablet,delayed release (DR/EC) 20 mg PO DAILY RF: 0 famotidine 20 MG tablet 20 mg PO BID Qty: 28 RF: 0 ondansetron 4 mg tablet,disintegrating 4 mg PO Q8H PRN (Reason: nausea and vomiting) 4 Days RF: 0 paroxetine HCl 10 mg tablet 10 mg PO DAILY RF: 0 Primary Care Provider: Marcelino Albert Referrals: Marcelino Albert MD [Primary Care Provider] - As Needed Disposition Disposition: Home, Self Care
[2021-04-10] MEDS: traMADol 50 MG Tablet PO (22:06)
[2021-04-10] MEDS: Clindamycin HCl 150 MG Capsule 300 MG PO (22:06)
[2021-04-10 22:08] VITALS: PULSE 88; RESP 16; O2SAT 99
== END 2021-04-10 22:08 | disposition home or self-care (01) ==
PROVIDERS: Emergency Provider Emergency Medicine; PCP Family Medicine
DX: K04.7 Periapical abscess without sinus (principal); K02.9 Dental caries, unspecified; E78.5 Hyperlipidemia, unspecified; G89.29 Other chronic pain; G43.909 Migraine, unspecified, not intractable, without status migrainosus; Z87.442 Personal history of urinary calculi; Z85.42 Personal history of malignant neoplasm of other parts of uterus; Z79.899 Other long term (current) drug therapy; F17.210 Nicotine dependence, cigarettes, uncomplicated
CPT/HCPCS: 99283

== ENCOUNTER 2021-06-14 10:24 | Emergency (ER) | payer MEDICAID, SELFPAY ==
[2021-06-14 10:25] VITALS: BP 138/100; PULSE 72; RESP 16; TEMP 36.8; O2SAT 99; BMI 40.6
--- NOTE | 2021-06-14 11:03 | EX.ED.DYSGE1 ---
HPI History of Present Illness Chief Complaint: Abd Pain Informant: patient Onset/Context/Timing Onset: Days (Worse today) Context: Gradual Onset Current Severity: Severe Maximum Severity: Severe Narrative Narrative: Patient presents secondary to upper abdominal pain. She is a history of pancreatitis and states this feels similar. She does not drink alcohol. Her gallbladder is out. Patient states she had some mild pain over the past week and talk to her GI doctor. They told her to keep an eye on it. Early this morning pain significantly worsened. She is had nausea and vomiting. Pain goes into her back and to her right shoulder. [facility] Medical History Bipolar disorder Chronic pain History of renal calculi History of uterine cancer (2006) Hyperlipidemia Incomplete right bundle branch block Lung nodule Migraine Obesity Ovarian cyst Pancreatitis Right tubo-ovarian mass Ureteral stone with hydronephrosis Home Medications prazosin 1 mg PO QHS 03/26/20 [History Last Taken Unknown] gabapentin 800 mg PO TID 10/03/20 [History Last Taken Unknown] hydroxyzine HCl 50 mg PO QHS 10/03/20 [History Last Taken Unknown] omeprazole magnesium 20 mg PO DAILY 10/03/20 [History Last Taken Unknown] sucralfate 1 g PO DAILY 10/03/20 [History Last Taken Unknown] buspirone 10 mg tablet 10 mg PO BID 11/19/20 [History Last Taken Unknown] ondansetron 4 mg PO Q8H PRN 4 Days tab 01/14/21 [Rx Last Taken Unknown] paroxetine HCl 10 mg PO DAILY 02/27/21 [History Last Taken Unknown] clindamycin HCl 300 mg PO 4X/DAY #80 capsule 04/10/21 [Rx Last Taken Unknown] baclofen 10 mg PO DAILY 06/14/21 [History Last Taken Unknown] hydrocodone-acetaminophen 1 tab PO Q6H PRN 3 Days #10 tab 06/14/21 [Rx Last Taken Unknown] promethazine 25 mg PO TID PRN #14 tab 06/14/21 [Rx Last Taken Unknown] sucralfate [Carafate] 1 g PO BID 06/14/21 [History Last Taken Unknown] Allergy/AdvReac Type Severity Reaction Status Date / Time ketorolac tromethamine Allergy Rash Verified 04/10/21 21:18 [From Toradol] metronidazole [From Flagyl] Allergy Hives Verified 04/10/21 21:18 Penicillins Allergy Hives Verified 04/10/21 21:18 aspirin AdvReac Upset Verified 04/10/21 21:[address] DYE Allergy Anaphylaxis Uncoded 04/10/21 21:18 IV contrast Allergy Anaphylaxis Uncoded 04/10/21 21:18 Family History Aunt Breast cancer Grandfather CAD (coronary artery disease) Father Heart disease, Onset Age: 73 Triple bypass Mother Heart disease, Onset Age: 62 Other Diabetes Surgical History H/O ovarian cystectomy (09/2019) History of bilateral oophorectomy History of hysterectomy History of tubal ligation Social History Smoking Status: Current every day smoker tobacco type: cigarettes Tobacco: How many years used: 15 ROS ROS ED Constitutional Constitutional ED: Denies chills or fever(s) Eyes Eyes: Denies change in vision ENT ENT ED: Denies sore throat Cardiovascular Cardiovascular: Denies chest pain Respiratory/Chest Respiratory/Chest: Denies cough or dyspnea Gastrointestinal Gastrointestinal: Reports abdominal pain, nausea and vomiting; Denies diarrhea Genitourinary Genitourinary ED: Denies dysuria Musculoskeletal Musculoskeletal: Reports back pain Integumentary Denies rash Neurologic Neurologic: Denies headache(s) or weakness Allergic/Immunologic Allergic/Immunologic ED: Denies urticaria EXAM Physical Exam Const Vital Signs: 06/14/21 10:25 06/14/21 13:03 Temperature 98.3 F Temperature Source Oral Pulse Rate 72 77 Respiratory Rate 16 16 Blood Pressure 138/100 H 123/73 H Blood Pressure Mean 112 89 Pulse Ox 99 98 Oxygen Delivery Method Room Air Room Air Positive well nourished and well developed General Appearance ED: well developed HEENT Reports normocephalic and head/scalp atraumatic Eyes PERRL and EOMs intact bilaterally Neck supple Chest Wall inspection of chest normal and palpation of chest normal Resp normal respiratory effort and clear to auscultation bilaterally Cardio regular rate and regular rhythm GI Auscultation: hypoactive bowel sounds Palpation: tender epigastric Extremity normal to inspection Neuro oriented x3 and no sensory deficits noted Sensorium / Orientation: alert Motor Exam: strength 5/5 throughout Psych Mood & Affect: anxious Skin no rashes or lesions noted MDM MDM MDM Narrative Medical decision making narrative: Patient is given morphine and Zofran for pain. Lab work ordered. Lab Data Labs: Laboratory Results - last 24 hr 06/14/21 06/14/21 10:30 10:30 WBC 8.4 RBC 4.60 Hgb 13.4 Hct 41.5 MCV 90.2 MCH 29.1 MCHC 32.3 RDW Std Deviation 46.9 H RDW Coeff of Shun 14.2 Plt Count 277 MPV 10.6 Immature Gran % (Auto) 0.200 Neut % (Auto) 57.6 Lymph % (Auto) 34.2 [place] % (Auto) 5.3 Eos % (Auto) 2.1 Baso % (Auto) 0.6 Absolute Neuts (auto) 4.8 Absolute Lymphs (auto) 2.87 Nucleated RBC % 0 Sodium 136 Potassium 4.1 Chloride 104 Carbon Dioxide 26.0 Anion Gap 6 BUN 19 H Creatinine 1.06 H Estim Creat Clear Calc 52.70 Est GFR (MDRD) Af Amer 73 Est GFR (MDRD) Non-Af 61 BUN/Creatinine Ratio 17.9 Glucose 95 Calcium 9.4 Total Bilirubin 0.40 Direct Bilirubin 0.09 AST 9 L ALT 15 Alkaline Phosphatase 139 H Total Protein 8.2 Albumin 4.1 Globulin 4.1 Lipase 441 H Treatment and Re-Evaluation Comments:: Due to continued pain patient was given 1 dose of Dilaudid. Lab work reviewed with the patient. Lipase is 441, at the upper limit of normal, but does not meet criteria for acute pancreatitis. On repeat abdominal exam abdomen is mildly tender with no guarding or rebound. I do not feel imaging is needed at this time. She will be given analgesics and antiemetics for home. Advised to follow bland diet. If symptoms worsen she is to return. Discharge Plan Triage Chief Complaint: Abd Pain ED Provider: Eleanor Borjas Dx/Rx/DC Orders Clinical Impression: Acute epigastric pain Instructions: ED Epigastric Pain Uncertain Cause Prescriptions: New promethazine 25 mg tablet 25 mg PO TID PRN (Reason: nausea and vomiting) Qty: 14 RF: 0 hydrocodone-acetaminophen 5-325 mg tablet 1 tab PO Q6H PRN (Reason: pain) 3 Days Qty: 10 RF: 0 No Action buspirone 10 mg tablet 10 mg PO BID RF: 0 prazosin 1 MG capsule 1 mg PO QHS RF: 0 sucralfate 1 GM tablet 1 g PO DAILY RF: 0 gabapentin 400 MG capsule 800 mg PO TID RF: 0 hydroxyzine HCl 50 MG tablet 50 mg PO QHS RF: 0 omeprazole magnesium 20 MG tablet,delayed release (DR/EC) 20 mg PO DAILY RF: 0 ondansetron 4 mg tablet,disintegrating 4 mg PO Q8H PRN (Reason: nausea and vomiting) 4 Days RF: 0 paroxetine HCl 10 mg tablet 10 mg PO DAILY RF: 0 clindamycin HCl 150 MG capsule 300 mg PO 4X/DAY Qty: 80 RF: 0 sucralfate [Carafate] 1 gram Tablet 1 g PO BID RF: 0 baclofen 10 mg tablet 10 mg PO DAILY RF: 0 Primary Care Provider: Marcelino Albert Referrals: Marcelino Albert MD [Primary Care Provider] - 1 Week Disposition Disposition: Home, Self Care
--- NOTE | 2021-06-14 11:08 | CM.ED ---
SOCIAL WORK Patient with active ED Care Plan. Dr. Borjas notified. Work up being completed. Shana Cochran, RN GERIATRIC, SCHEDULING MANAGER
[2021-06-14 11:15] LABS: Absolute Lymphocyte Count 2.87 X10^3/uL (0.83-4.51); Absolute Neutrophil Count 4.8 X10^3/uL (2.0-7.7); Basophil# 0.05 X10^3/uL; Basophil% 0.6 % (0-1); Eosinophil# 0.18 X10^3/uL; Eosinophils% 2.1 % (0-5); Hematocrit 41.5 % (37-47); Hemoglobin 13.4 g/dL (12.0-15.0); Lymphocyte # 2.87 X10^3/ul (0.83-4.51); Lymphocyte % 34.2 % (19-41); Mean Corp Hgb Conc 32.3 g/dL (32-36); Mean Corpuscular Hgb 29.1 pg (27.0-32.0); Mean Corpuscular Volume 90.2 fL (81-99); Mean Platelet Vol. 10.6 fl (6.2-12.0); Monocyte# 0.44 X10^3/uL; Monocyte% 5.3 % (0-10); NRBC Flagged by Analyzer 0 % (0-5); Neutrophil # 4.82 X10^3/uL (2.7-7.7); Neutrophil % 57.6 % (47-70); Platelet Count 277 K/mm3 (150-450); RBC Distribution Width CV 14.2 % (11.6-14.6); RBC Distribution Width SD 46.9 fl (35.1-43.9); White Blood Count 8.4 K/mm3 (4.4-11.0)
[2021-06-14 11:28] LABS: AST(SGOT) 9 U/L (15-37); Alanine Aminotransfer ALT/SGPT 15 U/L (13-56); Albumin, Serum 4.1 g/dL (3.2-5.0); Alkaline Phosphatase 139 U/L (45-117); Anion Gap 6 (5-15); BUN 19 mg/dL (7-18); BUN/Creat Ratio 17.9 RATIO (10-20); Bilirubin, Direct 0.09 mg/dL (0.00-0.30); Calcium,Total 9.4 mg/dL (8.5-10.1); Chloride 104 mmol/L (98-107); Creatinine, Serum 1.06 mg/dL (0.55-1.02); EST Glomerular Filtration Rate 61 mL/min (>60); Est Glom Filt Rate - Afr Amer 73 mL/min (>60); Globulin 4.1 g/dL (2.2-4.2); Glucose 95 mg/dL (74-106); Lipase 441 U/L (73-393); Potassium 4.1 mmol/L (3.5-5.1); Protein, Total 8.2 g/dL (6.4-8.2); Sodium Level 136 mmol/L (136-145)
[2021-06-14] MEDS: Ondansetron 4 MG/2 ML Vial IV (11:41)
[2021-06-14] MEDS: Morphine 4 MG/ML Syringe IV (11:41)
[2021-06-14] MEDS: 0.9% Normal Saline 1,000 ML 1000 ML IV (11:41)
[2021-06-14 13:03] VITALS: BP 123/73; PULSE 77; RESP 16; O2SAT 98
[2021-06-14] MEDS: 0.9% Normal Saline 1,000 ML 150 ML IV (13:13)
[2021-06-14] MEDS: HYDROmorphone 1 MG/ML Syringe IV (13:13)
[2021-06-14 14:12] VITALS: BP 122/78; PULSE 87; RESP 16; O2SAT 99
== END 2021-06-14 14:13 | disposition home or self-care (01) ==
PROVIDERS: Emergency Provider Emergency Medicine; PCP Family Medicine
DX: R10.13 Epigastric pain (principal); R11.2 Nausea with vomiting, unspecified; F17.210 Nicotine dependence, cigarettes, uncomplicated; Z90.710 Acquired absence of both cervix and uterus; Z98.51 Tubal ligation status; Z87.19 Personal history of other diseases of the digestive system; E78.5 Hyperlipidemia, unspecified; F31.9 Bipolar disorder, unspecified; G89.29 Other chronic pain; Z79.1 Long term (current) use of non-steroidal anti-inflammatories (NSAID); Z79.82 Long term (current) use of aspirin; Z87.442 Personal history of urinary calculi; Z85.42 Personal history of malignant neoplasm of other parts of uterus; Z79.899 Other long term (current) drug therapy
CPT/HCPCS: 80048; 80076; 83690; 85025; 96361; 96374; 96375; 99283; J7030; A4216; J2405

== ENCOUNTER 2021-06-14 18:15 | Emergency (ER) | payer MEDICAID, SELFPAY ==
[2021-06-14 18:16] VITALS: BP 118/72; PULSE 112; RESP 16; TEMP 36.7; O2SAT 97; BMI 37.2
--- NOTE | 2021-06-14 19:46 | CM.ED ---
SOCIAL WORK Active ED Care Plan Patient was seen earlier today for same compliant of abdominal pain, treated by Dr. Borjas. Patient with active ED Care Plan and reviewed with Dr. Painter. This worker to remain available for needs. Shana Cochran, BALANCE STAFF INSPECTOR, BRUSH MAKER MACHINE
--- NOTE | 2021-06-14 19:48 | EDS_ITS ---
HPI HPI - GI History of Present Illness Chief Complaint: Abd Pain Detail of Chief Complaint: It is my pancreas it is my pancreas Informant: patient Abdominal Pain/Flank Pain Onset: Hours (Acutely got worse after discharge from the emergency department) Context: Sudden Onset Timing: Continuous Quality: Burning and Stabbing Location: RUQ Current Severity: Severe Maximum Severity: Severe Worsened by: Food Relieved by: Nothing Nausea/Vomiting/Emesis GI Symptom: Positive for Nausea; Negative for Vomiting Diarrhea/Melena/Hematochezia GI Symptom: Negative for Diarrhea Associated Symptoms Associated Symptoms: Negative for Dysuria, Frequency and Hematuria Narrative Narrative: Patient is a 40-year-old woman. She has a care plan. She was seen earlier today. Lipase was slightly above normal. As I entered the room she is rubbing the right upper quadrant screaming it is my pancreas. It is my pancreas. . Patient was informed that her pancreas is not located where she is claiming she is having pain. She denies food intolerance. Denies black or maroon stool. She is had no vomiting. She denies dysuria, frequency, urgency and hemat uria. Prior similar symptoms: Yes Recent Illness/Hospitalization: Yes PFSH [facility] Medical History Bipolar disorder Chronic pain History of renal calculi History of uterine cancer (2006) Hyperlipidemia Incomplete right bundle branch block Lung nodule Migraine Obesity Ovarian cyst Pancreatitis Right tubo-ovarian mass Ureteral stone with hydronephrosis Home Medications prazosin 1 mg PO QHS 03/26/20 [History Last Taken Unknown] gabapentin 800 mg PO TID 10/03/20 [History Last Taken Unknown] hydroxyzine HCl 50 mg PO QHS 10/03/20 [History Last Taken Unknown] omeprazole magnesium 20 mg PO DAILY 10/03/20 [History Last Taken Unknown] sucralfate 1 g PO DAILY 10/03/20 [History Last Taken Unknown] buspirone 10 mg tablet 10 mg PO BID 11/19/20 [History Last Taken Unknown] ondansetron 4 mg PO Q8H PRN 4 Days tab 01/14/21 [Rx Last Taken Unknown] paroxetine HCl 10 mg PO DAILY 02/27/21 [History Last Taken Unknown] clindamycin HCl 300 mg PO 4X/DAY #80 capsule 04/10/21 [Rx Last Taken Unknown] baclofen 10 mg PO DAILY 06/14/21 [History Last Taken Unknown] hydrocodone-acetaminophen 1 tab PO Q6H PRN 3 Days #10 tab 06/14/21 [Rx Last Taken Unknown] promethazine 25 mg PO TID PRN #14 tab 06/14/21 [Rx Last Taken Unknown] sucralfate [Carafate] 1 g PO BID 06/14/21 [History Last Taken Unknown] Allergy/AdvReac Type Severity Reaction Status Date / Time ketorolac tromethamine Allergy Rash Verified 06/14/21 18:16 [From Toradol] metronidazole [From Flagyl] Allergy Hives Verified 06/14/21 18:16 Penicillins Allergy Hives Verified 06/14/21 18:16 aspirin AdvReac Upset Verified 06/14/21 18:[address] DYE Allergy Anaphylaxis Uncoded 06/14/21 18:16 IV contrast Allergy Anaphylaxis Uncoded 06/14/21 18:16 Family History Aunt Breast cancer Grandfather CAD (coronary artery disease) Father Heart disease, Onset Age: 73 Triple bypass Mother Heart disease, Onset Age: 62 Other Diabetes Surgical History H/O ovarian cystectomy (09/2019) History of bilateral oophorectomy History of hysterectomy History of tubal ligation Social History (Updated 06/14/21 @ 19:[address] 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 Painter MD) household members: none Smoking Status: Current every day smoker tobacco type: cigarettes Tobacco: How many years used: 15 substance use type: does not use ROS ROS ED Constitutional Constitutional ED: Denies chills, fever(s), subjective or sweats ENT ENT ED: Denies ear pain, rhinorrhea or sore throat Cardiovascular Cardiovascular: Denies chest pain, palpitations or racing heartbeat Respiratory/Chest Respiratory/Chest: Denies cough, dyspnea or dyspnea on exertion Gastrointestinal Gastrointestinal: Reports abdominal pain and nausea; Denies diarrhea or vomiting Genitourinary Genitourinary ED: Denies dysuria, hematuria or urinary frequency Musculoskeletal Musculoskeletal: Denies back pain or neck pain Integumentary Denies rash Neurologic Neurologic: Denies headache(s) Psychiatric Psychiatric: Reports anxiety and depression Hematologic/Lymphatic Hematologic/Lymphatic: Denies easy bleeding or easy bruising EXAM Physical Exam Const Vital Signs: 06/14/21 18:16 Temperature 98.1 F Temperature Source Temporal Pulse Rate 112 H Respiratory Rate 16 Blood Pressure 118/72 Blood Pressure Mean 87 Pulse Ox 97 Oxygen Delivery Method Room Air Positive well nourished, well developed and obese General Appearance ED: well developed and other Patient is sobbing rubbing her right upper quadrant with tears rolling down her eye Face ; Negative for pallor Nutritional Appearance: obese HEENT Reports moist mucous membranes HEENT Narrative: Poor dentition with numerous caries. normocephalic and atraumatic Eyes PERRL and EOMs intact bilaterally General Eye ED: Negative for pale conjunctiva or scleral icterus Neck no lymphadenopathy and supple Resp normal respiratory effort and clear to auscultation bilaterally GI non-distended and no masses Auscultation: normoactive bowel sounds Palpation: soft and tender RLQ (Patient has pain out of proportion to tactile stimulus. She complained of severe pain when I placed my stethoscope on her a bdomen to auscultate.) Back/Spine no CVA tenderness Cervical Spine: Negative for cervical spine tenderness Thoracic Spine / Upper Back: Negative for thoracic spinal tenderness Lumbar Spine / Lower Back: Negative for lumbar spinal tenderness Extremity full ROM General Extremety ED: Negative for edema or tenderness General Extremity: Negative for edema Neuro Sensorium / Orientation: alert and oriented to person Psych mental status grossly normal and thought process normal Mood & Affect: tearful Skin no wounds General Skin Exam: Negative for jaundice or pallor Lesions: no lesions Rashes: no rashes MDM MDM MDM Narrative Medical decision making narrative: Lipase was ordered from treatment nausea. Patient states she was told to come back by the physician that saw her earlier that she would be admitted if the pain was unbearable. Patient was informed since she has a care plan we will adhere to the care plan. Plan is no opiate analgesia unless her lipase is 3 times normal. Lab Data Attestation: I reviewed the patient's lab results. Lab results narrative: Patient's lipase is normal. Will discharge to home Labs: Laboratory Results - last 24 hr 06/14/21 20:04 Lipase 356 Discharge Plan Triage Chief Complaint: Abd Pain ED Provider: Mor Painter Dx/Rx/DC Orders Clinical Impression: Abdominal pain of unknown etiology Instructions: ED Abdominal Pain Unkn Cause Fem Prescriptions: No Action buspirone 10 mg tablet 10 mg PO BID RF: 0 prazosin 1 MG capsule 1 mg PO QHS RF: 0 sucralfate 1 GM tablet 1 g PO DAILY RF: 0 gabapentin 400 MG capsule 800 mg PO TID RF: 0 hydroxyzine HCl 50 MG tablet 50 mg PO QHS RF: 0 omeprazole magnesium 20 MG tablet,delayed release (DR/EC) 20 mg PO DAILY RF: 0 ondansetron 4 mg tablet,disintegrating 4 mg PO Q8H PRN (Reason: nausea and vomiting) 4 Days RF: 0 paroxetine HCl 10 mg tablet 10 mg PO DAILY RF: 0 clindamycin HCl 150 MG capsule 300 mg PO 4X/DAY Qty: 80 RF: 0 sucralfate [Carafate] 1 gram Tablet 1 g PO BID RF: 0 baclofen 10 mg tablet 10 mg PO DAILY RF: 0 promethazine 25 mg tablet 25 mg PO TID PRN (Reason: nausea and vomiting) Qty: 14 RF: 0 hydrocodone-acetaminophen 5-325 mg tablet 1 tab PO Q6H PRN (Reason: pain) 3 Days Qty: 10 RF: 0 Primary Care Provider: Marcelino Albert Referrals: Marcelino Albert MD [Primary Care Provider] - As Needed Activity Restrictions/Additional Instructions: Your laboratory results are normal. The cause of your pain is unknown. Recommend following up with your doctor. If admitted earlier Disposition Disposition: Home, Self Care
[2021-06-14 20:34] LABS: Lipase 356 U/L (73-393)
[2021-06-14 21:03] VITALS: RESP 18
== END 2021-06-14 21:03 | disposition home or self-care (01) ==
PROVIDERS: Emergency Medicine; Emergency Provider Emergency Medicine; PCP Family Medicine
DX: R10.9 Unspecified abdominal pain (principal); R11.0 Nausea; E66.9 Obesity, unspecified; F17.210 Nicotine dependence, cigarettes, uncomplicated; Z90.710 Acquired absence of both cervix and uterus; Z98.51 Tubal ligation status; E78.5 Hyperlipidemia, unspecified; F31.9 Bipolar disorder, unspecified; G89.29 Other chronic pain; Z79.1 Long term (current) use of non-steroidal anti-inflammatories (NSAID); Z79.82 Long term (current) use of aspirin; Z85.42 Personal history of malignant neoplasm of other parts of uterus; Z87.442 Personal history of urinary calculi
CPT/HCPCS: 83690; 99284; A4216

== ENCOUNTER 2021-06-16 21:53 | Emergency (ER) | payer MEDICAID, SELFPAY ==
[2021-06-16 21:54] VITALS: BP 148/88; PULSE 110; RESP 24; TEMP 36.6; O2SAT 98; BMI 37.8
--- NOTE | 2021-06-16 22:22 | EDS_ITS ---
HPI HPI - GI History of Present Illness Chief Complaint: Abd Pain Informant: patient Abdominal Pain/Flank Pain Onset: Days Context: Gradual Onset Timing: Continuous Quality: Aching and Cramping Location: RUQ Current Severity: Mild Maximum Severity: Mild Nausea/Vomiting/Emesis GI Symptom: Positive for Nausea and Vomiting Onset: Days Quality: Positive for Nonbilious; Negative for Blood streaks and Coffee ground Severity: Mild Diarrhea/Melena/Hematochezia GI Symptom: Positive for Diarrhea; Negative for Melena and Hematochezia Onset: Today and Yesterday Stool Quality: Positive for Loose Severity: Mild Associated Symptoms Associated Symptoms: Negative for Dysuria, Frequency, Hematuria and Urgency Narrative Narrative: 40-year-old female history of kidney stones, pancreatitis prior hy sterectomy and cholecystectomy and resection of liver cyst. Patient states that on Thursday she started having abdominal discomfort primarily right upper quadrant with nausea, vomiting and some diarrhea. Was seen in the emergency department had negative work-up and was discharged home. She returned feeling the same. Again was discharged. She denies any hematemesis she denies any fever. States she is having bowel movements primarily loose stools no melena. She is urinating normally. Prior similar symptoms: Yes Recent Illness/Hospitalization: No PFSH PFSH Medical History Bipolar disorder Chronic pain History of renal calculi History of uterine cancer (2006) Hyperlipidemia Incomplete right bundle branch block Lung nodule Migraine Obesity Ovarian cyst Pancreatitis Right tubo-ovarian mass Ureteral stone with hydronephrosis Home Medications prazosin 1 mg PO QHS 03/26/20 [History Last Taken Unknown] gabapentin 800 mg PO TID 10/03/20 [History Last Taken Unknown] hydroxyzine HCl 50 mg PO QHS 10/03/20 [History Last Taken Unknown] omeprazole magnesium 20 mg PO DAILY 10/03/20 [History Last Taken Unknown] buspirone 10 mg tablet 10 mg PO BID 11/19/20 [History Last Taken Unknown] paroxetine HCl 10 mg PO DAILY 02/27/21 [History Last Taken Unknown] clindamycin HCl 300 mg PO 4X/DAY #80 capsule 04/10/21 [Rx Last Taken Unknown] baclofen 10 mg PO DAILY 06/14/21 [History Last Taken Unknown] hydrocodone-acetaminophen 1 tab PO Q6H PRN 3 Days #10 tab 06/14/21 [Rx Last Taken Unknown] promethazine 25 mg PO TID PRN #14 tab 06/14/21 [Rx Last Taken Unknown] sucralfate [Carafate] 1 g PO BID 06/14/21 [History Last Taken Unknown] Allergy/AdvReac Type Severity Reaction Status Date / Time ketorolac tromethamine Allergy Rash Verified 06/16/21 21:57 [From Toradol] metronidazole [From Flagyl] Allergy Hives Verified 06/16/21 21:57 Penicillins Allergy Hives Verified 06/16/21 21:57 aspirin AdvReac Upset Verified 06/16/21 21:[address] DYE Allergy Anaphylaxis Uncoded 06/16/21 21:57 IV contrast Allergy Anaphylaxis Uncoded 06/16/21 21:57 Family History Aunt Breast cancer Grandfather CAD (coronary artery disease) Father Heart disease, Onset Age: 73 Triple bypass Mother Heart disease, Onset Age: 62 Other Diabetes Surgical History H/O ovarian cystectomy (09/2019) History of bilateral oophorectomy History of hysterectomy History of tubal ligation Social History household members: none Smoking Status: Current every day smoker tobacco type: cigarettes Tobacco: How many years used: 15 substance use type: does not use ROS ROS ED ROS Narrative Abdominal pain with nausea, vomiting and diarrhea. Review of Systems ROS Unobtainable: Denies due to encephalopathy Constitutional Constitutional ED: Denies chills or fever(s) ENT ENT ED: Denies ear pain Cardiovascular Cardiovascular: Denies chest pain Respiratory/Chest Respiratory/Chest: Denies cough or dyspnea Gastrointestinal Gastrointestinal: Reports abdominal pain, diarrhea, nausea and vomiting Genitourinary Genitourinary ED: Denies dysuria Musculoskeletal Musculoskeletal: Denies myalgias Integumentary Denies rash Neurologic Neurologic: Denies headache(s) Psychiatric Psychiatric: Denies depression Endocrine Endocrinology: Denies polyuria Hematologic/Lymphatic Hematologic/Lymphatic: Denies easy bruising Allergic/Immunologic Allergic/Immunologic ED: Denies urticaria EXAM Physical Exam Narrative Exam Narrative: Anxious appearing middle-aged female. Vital signs are stable and afebrile. H EENT exam mild dry mucous membranes otherwise unremarkable. Neck nontender no lymphadenopathy. Lungs clear to auscultation bilaterally. Heart regular rhythm rate about 105 no murmur. Abdomen soft nondistended normal bowel sounds no peritoneal signs. Mild tenderness right upper quadrant. No distention. No hernia or mass. Left side of her abdomen and right lower quadrant unremarkable. Patient moving all 4 extremities. No edema. Back nontender. Neurologically she is awake and alert with no focal motor deficits. She is emotionally upset and anxious. Const Vital Signs: 06/16/21 21:54 Temperature 97.9 F Temperature Source Temporal Pulse Rate 110 H Respiratory Rate 24 H Blood Pressure 148/88 H Blood Pressure Mean 108 Pulse Ox 98 Oxygen Delivery Method Room Air Positive well nourished and well developed; Negative for cachectic or contractures General Appearance ED: well developed and NAD; Negative for cachectic, contractures or pallor Nutritional Appearance: Negative for cachectic HEENT Reports dry mucous membranes normocephalic and atraumatic; Negative for trauma or tenderness Mouth ED: Yes dry mucous membranes Mouth: dry mucous membranes Eyes PERRL and EOMs intact bilaterally Neck no lymphadenopathy, supple and no JVD General: Negative for tenderness Resp normal respiratory effort and clear to auscultation bilaterally Auscultation: Negative for rales, rhonchi or wheezes Cardio regular rhythm, S1 normal heart sound, S2 normal heart sound and no murmurs Rate: tachycardic GI non-distended and no masses; Negative for non-tender GI Narrative: Mild right upper quadrant tenderness. Soft abdomen positive bowel sounds. No signs of obstruction. No peritoneal signs. Inspection: Negative for abdominal distention Auscultation: normoactive bowel sounds; Negative for hyperactive bowel sounds or hypoactive bowel sounds Palpation: soft and tender; Negative for guarding, rigid, hepatomegaly, splenomegaly, mass, pulsatile mass or rebound tenderness present Back/Spine no CVA tenderness Extremity full ROM General Extremety ED: Negative for edema or tenderness General Extremity: Negative for edema Neuro moves all extremities Sensorium / Orientation: alert, oriented to person, oriented to place and oriented to time; Negative for orientation impaired, confused, lethargic or stuporous Motor Exam: strength 5/5 throughout; Negative for general weakness Psych mental status grossly normal Skin no wounds General Skin Exam: Negative for jaundice or pallor Lesions: no lesions Rashes: no rashes MDM MDM MDM Narrative Medical decision making narrative: Patient with right upper quad abdominal pain. Has had multiple CT scans in the past most of them showing chronic changes. Here she was evaluated on Thursday and notes that her lipase was slightly elevated 90 out of there the first visit and was normal in the second visit. She is requesting pain medications and states she is allergic to Toradol. She will be treated with IV fluids and Zofran for nausea. Will recheck labs I do not think she needs imaging. Repeat exam at 11:18 PM patient is doing well. She is emotionally upset and tearful. She blatantly wants to be admitted to the hospital I explained her she meets no criteria for admission. She has had dozens of CAT scans in the past. I do not think she needs imaging at this time. Her lipase is much better than the last 2 have been. And is normal. She keeps requesting narcotic pain medication I explained to her we do not treat nonverifiable abdominal pain with narcotics typically. She has GI physicians in [place] I strongly encouraged her to follow-up with them. She was given a prescription for Zofran for home. Her abdominal exam still shows mild right upper quadrant tenderness but no peritoneal signs. The rest the abdomen is completely benign and soft. Nurse was present in the room when I was discharging the patient. Lab Data Attestation: I reviewed the patient's lab results. Lab results narrative: CBC normal white count 8. Hemoglobin 12.7. Normal platelets. Electrolytes unremarkable gap is 7. Creatinine of 1. Liver enzymes normal alk phos 124. Lipase 227 and lower than the last 2. Labs: Laboratory Results - last 24 hr 06/16/21 06/16/21 22:40 22:40 WBC 8.0 RBC 4.34 Hgb 12.7 Hct 39.3 MCV 90.6 MCH 29.3 MCHC 32.3 RDW Std Deviation 46.7 H RDW Coeff of Shun 14.0 Plt Count 277 MPV 10.3 Immature Gran % (Auto) 0.400 Neut % (Auto) 41.3 L Lymph % (Auto) 49.4 H [place] % (Auto) 6.2 Eos % (Auto) 2.2 Baso % (Auto) 0.5 Absolute Neuts (auto) 3.3 Absolute Lymphs (auto) 3.97 Nucleated RBC % 0 Sodium 136 Potassium 3.7 Chloride 103 Carbon Dioxide 26.0 Anion Gap 7 BUN 15 Creatinine 1.07 H Estim Creat Clear Calc 52.21 Est GFR (MDRD) Af Amer 72 Est GFR (MDRD) Non-Af 60 BUN/Creatinine Ratio 14.0 Glucose 103 Calcium 9.1 Total Bilirubin 0.30 AST 15 ALT 19 Alkaline Phosphatase 124 H Total Protein 8.1 Albumin 3.8 Globulin 4.3 H Albumin/Globulin Ratio 0.9 Amylase 35 Lipase 227 Discharge Plan Triage Chief Complaint: Abd Pain ED Provider: Grzegorz Roper Dx/Rx/DC Orders Clinical Impression: Abdominal pain of unknown etiology Instructions: Abdominal Pain Prescriptions: No Action buspirone 10 mg tablet 10 mg PO BID RF: 0 prazosin 1 MG capsule 1 mg PO QHS RF: 0 gabapentin 400 MG capsule 800 mg PO TID RF: 0 hydroxyzine HCl 50 MG tablet 50 mg PO QHS RF: 0 omeprazole magnesium 20 MG tablet,delayed release (DR/EC) 20 mg PO DAILY RF: 0 paroxetine HCl 10 mg tablet 10 mg PO DAILY RF: 0 clindamycin HCl 150 MG capsule 300 mg PO 4X/DAY Qty: 80 RF: 0 sucralfate [Carafate] 1 gram Tablet 1 g PO BID RF: 0 baclofen 10 mg tablet 10 mg PO DAILY RF: 0 promethazine 25 mg tablet 25 mg PO TID PRN (Reason: nausea and vomiting) Qty: 14 RF: 0 hydrocodone-acetaminophen 5-325 mg tablet 1 tab PO Q6H PRN (Reason: pain) 3 Days Qty: 10 RF: 0 Primary Care Provider: Marcelino Albert Referrals: Marcelino Albert MD [Primary Care Provider] - 3-5 Days if not improving Activity Restrictions/Additional Instructions: Plenty of fluids and rest. Increase diet slowly as tolerated. Follow-up with your GI doctor your primary care physician to ensure you are improving. Zofran as needed for nausea. Disposition Disposition: Home, Self Care
[2021-06-16 22:57] LABS: Absolute Lymphocyte Count 3.97 X10^3/uL (0.83-4.51); Absolute Neutrophil Count 3.3 X10^3/uL (2.0-7.7); Basophil# 0.04 X10^3/uL; Basophil% 0.5 % (0-1); Eosinophil# 0.18 X10^3/uL; Eosinophils% 2.2 % (0-5); Hematocrit 39.3 % (37-47); Hemoglobin 12.7 g/dL (12.0-15.0); Lymphocyte # 3.97 X10^3/ul (0.83-4.51); Lymphocyte % 49.4 % (19-41); Mean Corp Hgb Conc 32.3 g/dL (32-36); Mean Corpuscular Hgb 29.3 pg (27.0-32.0); Mean Corpuscular Volume 90.6 fL (81-99); Mean Platelet Vol. 10.3 fl (6.2-12.0); Monocyte% 6.2 % (0-10); NRBC Flagged by Analyzer 0 % (0-5); Neutrophil # 3.32 X10^3/uL (2.7-7.7); Neutrophil % 41.3 % (47-70); Platelet Count 277 K/mm3 (150-450); RBC Distribution Width SD 46.7 fl (35.1-43.9); Red Blood Count 4.34 M/mm3 (4.2-5.4)
[2021-06-16] MEDS: Ondansetron 4 MG/2 ML Vial IV (22:57)
[2021-06-16] MEDS: 0.9% Normal Saline 1,000 ML 1000 ML IV (22:57)
[2021-06-16 23:14] LABS: ALB/GLOB Ratio 0.9 RATIO (0.9-2.4); AST(SGOT) 15 U/L (15-37); Alanine Aminotransfer ALT/SGPT 19 U/L (13-56); Albumin, Serum 3.8 g/dL (3.2-5.0); Alkaline Phosphatase 124 U/L (45-117); Amylase 35 U/L (25-115); Anion Gap 7 (5-15); BUN 15 mg/dL (7-18); Calcium,Total 9.1 mg/dL (8.5-10.1); Chloride 103 mmol/L (98-107); Creatinine, Serum 1.07 mg/dL (0.55-1.02); EST Glomerular Filtration Rate 60 mL/min (>60); Est Glom Filt Rate - Afr Amer 72 mL/min (>60); Estimated Creatinine Clearance 52.21 ml/min; Globulin 4.3 g/dL (2.2-4.2); Glucose 103 mg/dL (74-106); Lipase 227 U/L (73-393); Potassium 3.7 mmol/L (3.5-5.1); Protein, Total 8.1 g/dL (6.4-8.2); Sodium Level 136 mmol/L (136-145)
[2021-06-16 23:24] VITALS: RESP 20
== END 2021-06-16 23:25 | disposition home or self-care (01) ==
PROVIDERS: Emergency Provider Emergency Medicine; PCP Family Medicine
DX: R10.9 Unspecified abdominal pain (principal); Z88.6 Allergy status to analgesic agent; E78.5 Hyperlipidemia, unspecified; F17.210 Nicotine dependence, cigarettes, uncomplicated; F31.9 Bipolar disorder, unspecified; G89.29 Other chronic pain; Z79.1 Long term (current) use of non-steroidal anti-inflammatories (NSAID); Z79.82 Long term (current) use of aspirin; Z85.42 Personal history of malignant neoplasm of other parts of uterus; Z87.19 Personal history of other diseases of the digestive system; Z87.442 Personal history of urinary calculi; Z90.49 Acquired absence of other specified parts of digestive tract
CPT/HCPCS: 80053; 82150; 83690; 85025; 96361; 96374; 99285; J7030; A4216; J2405

== ENCOUNTER 2021-09-15 15:00 | Emergency (ER) | payer MEDICAID, SELFPAY ==
[2021-09-15 15:01] VITALS: BP 113/85; PULSE 103; RESP 16; TEMP 36.7; O2SAT 95; BMI 38.4
== END 2021-09-15 16:40 | disposition left against medical advice (07) ==
LOC: ED 16:40
PROVIDERS: PCP Family Medicine
DX: R10.9 Unspecified abdominal pain (principal)

== ENCOUNTER 2021-10-04 19:16 | Emergency (ER) | payer MEDICAID, SELFPAY ==
[2021-10-04 19:17] VITALS: BP 127/72; PULSE 78; RESP 16; TEMP 36.7; O2SAT 96; BMI 39.6
--- NOTE | 2021-10-04 20:11 | RAD_ITS ---
INDICATION: Cough EXAMINATION/TECHNIQUE: X-RAY - XR Chest 1 View COMPARISON: Chest x-ray 01/15/2020 FINDINGS: LINES/DEVICES: None. LUNGS: Decreased lung volumes with chronic asymmetric elevation right hemidiaphragm compared to the left. There appears to be some mild overlying atelectasis and vascular crowding on the right. No appreciable pleural effusion. No pneumothorax. No nodule or mass. MEDIASTINUM AND CARDIOVASCULAR STRUCTURES: Normal size and contour of the cardiomediastinal silhouette. No evidence of pulmonary vascular congestion. BONES AND SOFT TISSUES: Surgical clips right upper quadrant suggesting prior cholecystectomy. RAD/Chest 1 View (Portable) IMPRESSION: 1. Decreased lung volumes with asymmetric elevation right hemidiaphragm and associated asymmetric right hilar vascular crowding and minimal atelectasis. Electronically Signed: Valentin Wang DO at 20:58 EST Tel , Service support ,
--- NOTE | 2021-10-04 20:20 | EX.ED.VIS.UR ---
HPI HPI - URI History of Present Illness Chief Complaint: Cough Informant: patient Onset/Context/Timing Onset: Days (5) Context: Gradual Onset Timing: Continuous Quality: Dry cough Location: Chest Worsened by: - (Nothing) Relieved by: - (Nothing) Associated Symptoms Associated Symptoms: Positive for Nasal Congestion, Headache, Shortness of Breath, Chest Pain and Nonproductive cough; Negative for Sinus Pressure, Myalgias, Nausea, Vomiting, Diarrhea, Hemoptysis and Productive Cough Narrative Narrative: Patient presents with a cough that has been constant for the past 5 days. Patient denies any sputum production. Patient admits to some pain in her chest and shortness of breath with the cough. Patient admits to some nasal congestion and headache. Patient denies any rhinorrhea. Patient admits to some subjective chills but did not take her temperature. Patient states she has been taking Tessalon Perles at home with no improvement of her cough. ROS ROS ED Constitutional Constitutional ED: Reports chills and subjective; Denies fever(s) Eyes Eyes: Denies blurry vision or change in vision ENT ENT ED: Denies rhinorrhea or sore throat Cardiovascular Cardiovascular: Reports chest pain; Denies palpitations Respiratory/Chest Respiratory/Chest: Reports cough and dyspnea; Denies sputum Gastrointestinal Gastrointestinal: Denies nausea or vomiting Genitourinary Genitourinary ED: Denies dysuria or hematuria Musculoskeletal Musculoskeletal: Denies back pain or neck pain Integumentary Denies abscess or rash Neurologic Neurologic: Reports headache(s); Denies weakness Allergic/Immunologic Allergic/Immunologic ED: Denies mouth swelling or urticaria [facility] Medical History Bipolar disorder Chronic pain History of renal calculi History of uterine cancer (2006) Hyperlipidemia Incomplete right bundle branch block Lung nodule Migraine Obesity Ovarian cyst Pancreatitis Right tubo-ovarian mass Ureteral stone with hydronephrosis Home Medications prazosin 1 mg PO QHS 03/26/20 [History Last Taken Unknown] gabapentin 800 mg PO TID 10/03/20 [History Last Taken Unknown] hydroxyzine HCl 50 mg PO QHS 10/03/20 [History Last Taken Unknown] omeprazole magnesium 20 mg PO DAILY 10/03/20 [History Last Taken Unknown] buspirone 10 mg tablet 10 mg PO BID 11/19/20 [History Last Taken Unknown] paroxetine HCl 10 mg PO DAILY 02/27/21 [History Last Taken Unknown] clindamycin HCl 300 mg PO 4X/DAY #80 capsule 04/10/21 [Rx Last Taken Unknown] baclofen 10 mg PO DAILY 06/14/21 [History Last Taken Unknown] hydrocodone-acetaminophen 1 tab PO Q6H PRN 3 Days #10 tab 06/14/21 [Rx Last Taken Unknown] promethazine 25 mg PO TID PRN #14 tab 06/14/21 [Rx Last Taken Unknown] sucralfate [Carafate] 1 g PO BID 06/14/21 [History Last Taken Unknown] Allergy/AdvReac Type Severity Reaction Status Date / Time ketorolac tromethamine Allergy Rash Verified 09/15/21 15:04 [From Toradol] metronidazole [From Flagyl] Allergy Hives Verified 09/15/21 15:04 Penicillins Allergy Hives Verified 09/15/21 15:04 aspirin AdvReac Upset Verified 09/15/21 15:[address] DYE Allergy Anaphylaxis Uncoded 09/15/21 15:04 IV contrast Allergy Anaphylaxis Uncoded 09/15/21 15:04 Family History Aunt Breast cancer Grandfather CAD (coronary artery disease) Father Heart disease, Onset Age: 73 Triple bypass Mother Heart disease, Onset Age: 62 Other Diabetes Surgical History H/O ovarian cystectomy (09/2019) History of bilateral oophorectomy History of hysterectomy History of tubal ligation Social History household members: none Smoking Status: Unknown if ever smoked Tobacco: How many years used: 15 substance use type: does not use EXAM Physical Exam Const Vital Signs: 10/04/21 19:17 10/04/21 19:46 10/04/21 21:24 Temperature 98.0 F Temperature Source Temporal Pulse Rate 78 Respiratory Rate 16 Respiratory Effort Short of Breath Respiratory Depth Normal Respiratory Pattern Normal Blood Pressure 127/72 H Blood Pressure Mean 90 Pulse Ox 96 98 Oxygen Delivery Method Room Air Room Air Positive well nourished and well developed General Appearance ED: well developed HEENT Reports moist mucous membranes Neck supple and no JVD Resp normal respiratory effort and clear to auscultation bilaterally Cardio regular rate, regular rhythm and no murmurs Rate: regular rate Rhythm: regular rhythm GI normal to inspection, nondistended, normoactive bowel sounds, non-tender and non-distended Palpation: soft Extremity normal to inspection General Extremety ED: Negative for edema or tenderness General Extremity: Negative for edema Neuro oriented x3, CN's II-XII intact bilaterally and no sensory deficits noted Sensorium / Orientation: alert Motor Exam: strength 5/5 throughout Psych mental status grossly normal Skin no rashes or lesions noted MDM MDM MDM Narrative Medical decision making narrative: COVID-19 rapid antigen was obtained and was positive. CBC was within normal limits. Comprehensive metabolic profile was essentially within normal limits. Portable chest x-ray was obtained. There is 1 view. On my interpretation, there is limited respiratory effort. There is no acute cardiopulmonary process noted. Bony thorax is normal. There is no cardiomegaly. Radiologist also interpreted the x-ray and agrees. Patient was given a dose of Tylenol and Mucinex DM here. Patient was instructed to continue using these at home as needed. Patient was given a referral for monoclonal antibody therapy. Patient was instructed to follow-up with her primary care physician in 5 to 7 days. Patient understood and was agreeable with the plan. All questions were answered. Symptom onset occurred: 09/30/2021 Positive COVID-19 test occurred: 10/04/2021 The FDA has authorized the emergency use of monoclonal antibody treatment (bamlanivimab/etesevimab or casirivimab/imdevimab) for mild to moderate COVID-19 in adults and pediatric patients with positive results of direct SARS?Cov?2 viral testing ages 12 and older, at least 40 kg, who are at high risk for progressing to severe COVID-19 and or hospitalization. The significant known and potential risks (allergic reactions, worsening of symptoms after treatment, or side effects from injection including brief pain, bleeding, bruising of the skin, soreness, swelling, possible infection at the infusion site) and benefits (decrease chance of progression to severe COVID-19) of a monoclonal antibody infusion, and the extent to which such potential risks and benefits are unknown. Note that worsening symptoms after treatment may occur but it is unknown whether these symptoms are related to treatment or are due to the progression of COVID-19. Worsening symptoms may include: fever, difficulty breathing, rapid or slow heart rate, tiredness, weakness or confusion. If these symptoms occur, patients are encouraged to seek immediate medical attention. These treatments are still being studied, all possible side effects may not be listed or known at this time. Patients treated with monoclonal antibody infusion should continue to self-isolate and use infection control measures (such as wear mask, isolate, social distance, avoid sharing personal items, clean and disinfect high touch surfaces, and frequent handwashing) according to the CDC guidelines. The fact sheet for patients, parents and caregivers will be provided prior to the administration of the medication. No drugs are approved by the FDA at this time to treat outpatients with mild or moderate symptoms of COVID-19. In addition to IV monoclonal antibodies, there are oral medications that have received authorization from the FDA to treat [id number] COVID-19 in patients at high risk for progression to severe COVID-19. These medications may not be appropriate for all patients and available drug supply may be limited. However, these oral medications may be more effective against the omicron variant. The following information was communicated to the patient or caregiver: Monoclonal antibody infusion for COVID-19 is not an FDA approved drug. The FDA has authorized the emergency use of monoclonal antibody therapy. The patient had the option to refuse or accept treatment with monoclonal antibody therapy. The patient was informed that the number of people treated with monoclonal antibody therapy at this time is small. The potential benefits and the potential risks of monoclonal antibody therapy are not fully known. Potential benefits of monoclonal antibody include a reduced risk of progressing to severe COVID-19 infection. Potential risks or side effects of monoclonal antibody therapy include allergic reactions, side effects from injection including brief pain, bleeding, bruising of the skin, soreness, swelling, possible infection at the infusion site and worsening of symptoms. Due to the changes in the virus that causes COVID-19, some monoclonal antibody treatments may not be effective for all forms of the virus (known as variants). This includes the omicron variant. The patient stated understanding of this information communicated and wished to proceed with monoclonal antibody infusion therapy. Current symptoms include: Shortness of breath, cough (productive versus nonproductive), fever, headache, nausea/vomiting, body aches, chills, general malaise, loss of taste or smell, sneezing, nasal congestion. Lab Data Attestation: I reviewed the patient's lab results. Labs: Laboratory Results - last 24 hr 10/04/21 10/04/21 20:39 20:39 WBC 8.1 RBC 4.52 Hgb 13.6 Hct 41.0 MCV 90.7 MCH 30.1 MCHC 33.2 RDW Std Deviation 42.6 RDW Coeff of Shun 12.8 Plt Count 258 MPV 10.5 Immature Gran % (Auto) 2.500 H Neut % (Auto) 47.7 Lymph % (Auto) 40.3 [place] % (Auto) 7.4 Eos % (Auto) 1.2 Baso % (Auto) 0.9 Absolute Neuts (auto) 3.9 Absolute Lymphs (auto) 3.26 Nucleated RBC % 0 Sodium 138 Potassium 3.7 Chloride 103 Carbon Dioxide 29.0 Anion Gap 6 BUN 12 Creatinine 1.21 H Estim Creat Clear Calc 45.70 Est GFR (MDRD) Af Amer 63 Est GFR (MDRD) Non-Af 52 L BUN/Creatinine Ratio 9.9 L Glucose 102 Calcium 9.9 Total Bilirubin 0.30 AST 19 ALT 32 Alkaline Phosphatase 156 H Total Protein 8.9 H Albumin 4.4 Globulin 4.5 H Albumin/Globulin Ratio 1.0 Radiography Diagnostic Testing: Clinical Impression(s) from Imaging Studies Chest X-Ray 10/04/21 20:11 IMPRESSION: 1. Decreased lung volumes with asymmetric elevation right hemidiaphragm and associated asymmetric right hilar vascular crowding and minimal atelectasis. Electronically Signed: Valentin Wang DO at 20:58 EST Tel , Service support , Discharge Plan Triage Chief Complaint: Cough ED Provider: Ran Torres Dx/Rx/DC Orders Clinical Impression: COVID-19 Instructions: Coronavirus Disease 2019 (COVID-19): Overview Prescriptions: No Action buspirone 10 mg tablet 10 mg PO BID RF: 0 prazosin 1 MG capsule 1 mg PO QHS RF: 0 gabapentin 400 MG capsule 800 mg PO TID RF: 0 hydroxyzine HCl 50 MG tablet 50 mg PO QHS RF: 0 omeprazole magnesium 20 MG tablet,delayed release (DR/EC) 20 mg PO DAILY RF: 0 paroxetine HCl 10 mg tablet 10 mg PO DAILY RF: 0 clindamycin HCl 150 MG capsule 300 mg PO 4X/DAY Qty: 80 RF: 0 sucralfate [Carafate] 1 gram Tablet 1 g PO BID RF: 0 baclofen 10 mg tablet 10 mg PO DAILY RF: 0 promethazine 25 mg tablet 25 mg PO TID PRN (Reason: nausea and vomiting) Qty: 14 RF: 0 hydrocodone-acetaminophen 5-325 mg tablet 1 tab PO Q6H PRN (Reason: pain) 3 Days Qty: 10 RF: 0 Stand Alone Forms: Monoclonal Antibody Referral Primary Care Provider: Marcelino Albert Referrals: Marcelino Albert MD [Primary Care Provider] - 3-5 Days Disposition Disposition: Home, Self Care
[2021-10-04] MEDS: Acetaminophen 500 MG Tablet 1000 MG PO (20:31)
[2021-10-04] MEDS: guaiFENesin/D-Methorphan TAB.SR.12H 1 TABLET PO (20:32)
[2021-10-04 20:45] LABS: Absolute Lymphocyte Count 3.26 X10^3/uL (0.83-4.51); Absolute Neutrophil Count 3.9 X10^3/uL (2.0-7.7); Basophil# 0.07 X10^3/uL; Basophil% 0.9 % (0-1); Eosinophils% 1.2 % (0-5); Hemoglobin 13.6 g/dL (12.0-15.0); Lymphocyte # 3.26 X10^3/ul (0.83-4.51); Lymphocyte % 40.3 % (19-41); Mean Corp Hgb Conc 33.2 g/dL (32-36); Mean Corpuscular Hgb 30.1 pg (27.0-32.0); Mean Corpuscular Volume 90.7 fL (81-99); Mean Platelet Vol. 10.5 fl (6.2-12.0); Monocyte% 7.4 % (0-10); NRBC Flagged by Analyzer 0 % (0-5); Neutrophil # 3.86 X10^3/uL (2.7-7.7); Neutrophil % 47.7 % (47-70); Platelet Count 258 K/mm3 (150-450); RBC Distribution Width CV 12.8 % (11.6-14.6); RBC Distribution Width SD 42.6 fl (35.1-43.9); Red Blood Count 4.52 M/mm3 (4.2-5.4); White Blood Count 8.1 K/mm3 (4.4-11.0)
[2021-10-04 20:59] LABS: AST(SGOT) 19 U/L (15-37); Alanine Aminotransfer ALT/SGPT 32 U/L (13-56); Albumin, Serum 4.4 g/dL (3.2-5.0); Alkaline Phosphatase 156 U/L (45-117); Anion Gap 6 (5-15); BUN 12 mg/dL (7-18); BUN/Creat Ratio 9.9 RATIO (10-20); Calcium,Total 9.9 mg/dL (8.5-10.1); Chloride 103 mmol/L (98-107); Creatinine, Serum 1.21 mg/dL (0.55-1.02); EST Glomerular Filtration Rate 52 mL/min (>60); Est Glom Filt Rate - Afr Amer 63 mL/min (>60); Globulin 4.5 g/dL (2.2-4.2); Glucose 102 mg/dL (74-106); Potassium 3.7 mmol/L (3.5-5.1); Protein, Total 8.9 g/dL (6.4-8.2); Sodium Level 138 mmol/L (136-145)
[2021-10-04 21:24] VITALS: O2SAT 98
== END 2021-10-04 21:53 | disposition home or self-care (01) ==
PROVIDERS: Emergency Provider Emergency Medicine; PCP Family Medicine; Visit Provider Emergency Medicine
DX: U07.1 COVID-19 (principal)
CPT/HCPCS: 71045; 80053; 85025; 87426; 99285; A4216

== ENCOUNTER 2021-11-22 10:30 | Outpatient (RCR) | payer MEDICAID, SELFPAY ==
--- NOTE | 2021-11-05 07:59 | HP.PTEVAL ---
Patient's Visit Information NORM VARGAS is a 41 year old F referred to Physical Therapy by Dr. Jas Fitzpatrick MD with a diagnosis of Radicu L-S region. Date of Evaluation: 11/05/21 Physical Therapist: JOSE Sy - Visit Plan Frequency: 2x /Week Duration: 6 Weeks Plan: 2X/ week for 6 weeks for AT for neutral core stability, LE strength, gait training, stretching with HEP - Subjective Pt reports that Dr Fitzpatrick send her in for bone spurs in her back. She needs 6 weeks of PT to get an MRI. said that an injection and nerve block will not help. Pt was supposed to come a month ago but has been sick. Pt reports that her back is constantly hurting. She can not do a lot of activities. She has a disability hearing coming up. Pt wants to try water therapy because she is hoping that it will help her. Pt reports that her back hurts all the time when she is sitting, sleeping, walking and standing and it is getting worse. Pt reports that she has RA also. Pt had a hysterectomy in 2006. When she is sleeping it does not hurt as bad. Standing, cooking, cleaning etc really increases her back pain. She is starting at [employer] for 2 nights. Her current symptoms are pain in low lumbar pain and it is more like a stabbing/pulling pain and it cameron a lot. If she stretches she has in crease pain right away. She has been to chiropractor and has getting worse. She is on muscle relaxors and gababpetin. She has B leg pain down B legs. The pain in the legs is constant no matter her position. She reports that she has weakness in legs and shoulders. Just driving 20 min she will have increase back pain with driving. When she stands up she gets shooting pains down the legs. She is only sleeping sometimes... back pain and migraines. Stairs: 2 feet to a stair with a railing due to the pain. Pt reports that she walks slow now - Pain back pain Pain Intensity (Out of 10): 9 Pain Intensity Range: 10 B leg pain Pain Intensity (Out of 10): 5 Pain Intensity Range: 5 - Objective Gait: Walks very slow with decrease stance time on the L LE. Reaches for the wall to help with her walking. Trunk AROM: flexion 100%, Ext 75%, SB B 75%, Rot B 75%. LE MMT: B hip flex 4-/5, B knee ext 4/5, B knee flex 4+/5, R hip abd 4-/5 and L 4/5, B hip ext 4-/5. Pt could not walk on her toes (has a broken toe) and can walk on her heels. Patella DTR's: 0/3. +SLR B for back pain. Tight HS, gastroc, and hip flexors. Very guarded with her movements. - Balance/Special Test Scores Oswestry Low Back Score: 31 - Goals Goal 1:: I HEP Goal Time Frame: 4-6 Weeks Goal 2:: Decrease back pain to 5/10 with ADL's Goal Time Frame: 4-6 Weeks Goal 3:: Increase LE strength by 1/2 muscle grade (at time of the eval: LE MMT: B hip flex 4-/5, B knee ext 4/5, B knee flex 4+/5, R hip abd 4-/5 and L 4/5, B hip ext 4-/5. Pt could not walk on her toes (has a broken toe) and can walk on her heels). Goal Time Frame: 4-6 Weeks Goal 4:: Be able to have a normal gait pattern without antalgic gait Goal Time Frame: 4-6 Weeks - Rehabilitation Potential Rehabilitation Potential: Good - Anticipated Interventions Patient/Client Instruction: Educate patient on: Condition, Plan of Care For the Purpose of:: To decrease pain, To increase ROM, To improve nutrient delivery to tissue, To increase oxygenation perfusion, To improve muscle performance and motor function, To improve ability to perform ADL's, To increase tolerance to activity/condition/position, To improve performance and independence with ADL's, To decrease level of supervision to perform tasks, To improve ability of physical actions for home/community/work/leisure, To improve gait and locomotor functions, To improve health of tissue, To decrease soft tissue restriction, To increase flexibility/ROM Therapeutic Exercise to Include: Strength training, Body mechanics, Postural training, Flexibilty training, Gait and locomotor training, Neuromotor development, Passive ROM, Active ROM, Dynamic Lumbar Stabilization For the Purpose of:: To decrease pain, To decrease swelling/inflammation, To increase ROM, To improve nutrient delivery to tissue, To improve muscle performance and motor function, To improve ability to perform ADL's, To increase tolerance to activity/condition/position, To improve performance and independence with ADL's, To decrease level of supervision to perform tasks, To improve ability of physical actions for home/community/work/leisure, To improve gait and locomotor functions, To improve health of tissue, To increase flexibility/ROM Functional Training to Include: Gait training For the Purpose of:: To improve gait and locomotor functions Thank you for the opportunity to evaluate your patient. For Medicare and Medicare HMO plans, please review the plan of care and approve it. It will need to be FAXED BACK to us at [phone] for Medicare purposes. For Medicare only, by signing this I certify the plan of care. Please let me know if there are questions or concerns regarding this plan of care. Physician Signature: Date:
--- NOTE | 2021-12-10 10:46 | HP.PT.NRP ---
NORM VARGAS was seen in my office for initial evaluation on 11/05/21. The following Plan of Care was established for this patient: Initial Frequency: 2x /Week Initial Duration: 6 Weeks Patient/Client Instruction: Educate patient on: Condition, Plan of Care For the Purpose of:: To decrease pain, To increase ROM, To improve nutrient delivery to tissue, To increase oxygenation perfusion, To improve muscle performance and motor function, To improve ability to perform ADL's, To increase tolerance to activity/condition/position, To improve performance and independence with ADL's, To decrease level of supervision to perform tasks, To improve ability of physical actions for home/community/work/leisure, To improve gait and locomotor functions, To improve health of tissue, To decrease soft tissue restriction, To increase flexibility/ROM Therapeutic Exercise to Include: Strength training, Body mechanics, Postural training, Flexibilty training, Gait and locomotor training, Neuromotor development, Passive ROM, Active ROM, Dynamic Lumbar Stabilization For the Purpose of:: To decrease pain, To decrease swelling/inflammation, To increase ROM, To improve nutrient delivery to tissue, To improve muscle performance and motor function, To improve ability to perform ADL's, To increase tolerance to activity/condition/position, To improve performance and independence with ADL's, To decrease level of supervision to perform tasks, To improve ability of physical actions for home/community/work/leisure, To improve gait and locomotor functions, To improve health of tissue, To increase flexibility/ROM Functional Training to Include: Gait training For the Purpose of:: To improve gait and locomotor functions This patient was last seen in our office 11/22/21. Pertinent comments regarding their Physical therapy will appear below: Pt was seen for initial eval and one Aquatic Therapy visit. She called and said that Aquatic Therapy was too hard on her and wanted to switch to land therapy. She then called back and said she was in too much pain/PT was too difficult for her and wished to be discharged. DC PT At this point I will be discontinuing this patient from physical therapy. I would be happy to see this patient again in the future if found appropriate by the physician. Thank you! Naty Chiang, MPT Balance/Gait/Functional tests - Balance/Special Test Scores Oswestry Low Back Score: 31
== END 2021-11-22 19:00 | disposition home or self-care (01) ==
LOC: PT 10:30
PROVIDERS: PCP Family Medicine; Referring Provider Anesthesiology Pain Medicine; Visit Provider Anesthesiology Pain Medicine
DX: M54.16 Radiculopathy, lumbar region (principal); M54.17 Radiculopathy, lumbosacral region
CPT/HCPCS: 97113; 97161

== ENCOUNTER 2022-04-10 10:56 | Emergency (ER) | payer MEDICAID, SELFPAY ==
[2022-04-10 10:57] VITALS: BP 135/66; PULSE 105; RESP 11; TEMP 36.7; O2SAT 97; BMI 39.0
[2022-04-10 10:58] VITALS: BP 135/66; PULSE 105; RESP 11; TEMP 36.7; O2SAT 97
--- NOTE | 2022-04-10 11:49 | EX.ED.DYSGE1 ---
HPI <SVETA Stout - Last Filed: 04/10/22 14:03> History of Present Illness Chief Complaint: Flank Pain Narrative Narrative: 41-year-old female with history of pancreatitis, history of kidney stones, anxiety, liver cyst presents to the Emergency Department with complaints of right-sided flank, right upper quadrant pain has been ongoing for the last 3 days. Patient states that she is having difficulty eating and drinking, she is even throwing up water. Patient does have past history of come to the ER for these pains, she does have a GI specialist. She denies any fevers or chills. She denies any blood in her stool or vomit. PFSH <SVETA Stout - Last Filed: 04/10/22 14:03> [facility] Medical History Bipolar disorder Chronic pain History of renal calculi History of uterine cancer (2006) Hyperlipidemia Incomplete right bundle branch block Lung nodule Migraine Obesity Ovarian cyst Pancreatitis Right tubo-ovarian mass Ureteral stone with hydronephrosis Home Medications prazosin 1 mg capsule 1 mg PO QHS 03/26/20 [History Last Taken Unknown] gabapentin 400 mg capsule 800 mg PO TID 10/03/20 [History Last Taken Unknown] hydroxyzine HCl 50 mg tablet 50 mg PO QHS 10/03/20 [History Last Taken Unknown] omeprazole magnesium 20 mg tablet,delayed release 20 mg PO DAILY 10/03/20 [History Last Taken Unknown] buspirone 10 mg tablet 10 mg PO BID 11/19/20 [History Last Taken Unknown] paroxetine HCl 10 mg tablet 10 mg PO DAILY 02/27/21 [History Last Taken Unknown] clindamycin HCl 150 mg capsule 300 mg PO 4X/DAY #80 CAPSULES 04/10/21 [Rx Last Taken Unknown] baclofen 10 mg tablet 10 mg PO DAILY 06/14/21 [History Last Taken Unknown] hydrocodone-acetaminophen 5-325mg 5mg-325mg 1 tab PO Q6H PRN pain 3 days #10 tabs 06/14/21 [Rx Last Taken Unknown] promethazine 25 mg tablet 25 mg PO TID PRN nausea and vomiting #14 tabs 06/14/21 [Rx Last Taken Unknown] sucralfate 1 gram tablet (Carafate) 1 g PO BID 06/14/21 [History Last Taken Unknown] dicyclomine 20 mg tablet 20 mg PO BID #10 tabs 04/10/22 [Rx Last Taken Unknown] ondansetron 4 mg disintegrating tablet 4 mg PO Q8H PRN nausea and vomiting #10 tabs 04/10/22 [Rx Last Taken Unknown] Allergy/AdvReac Type Severity Reaction Status Date / Time ketorolac tromethamine Allergy Rash Verified 04/10/22 10:57 [From Toradol] metronidazole [From Flagyl] Allergy Hives Verified 04/10/22 10:57 Penicillins Allergy Hives Verified 04/10/22 10:57 aspirin AdvReac Upset Verified 04/10/22 10:[address] DYE Allergy Anaphylaxis Uncoded 04/10/22 10:57 IV contrast Allergy Anaphylaxis Uncoded 04/10/22 10:57 Family History Aunt Breast cancer Grandfather CAD (coronary artery disease) Father Heart disease, Onset Age: 73 Triple bypass Mother Heart disease, Onset Age: 62 Other Diabetes Surgical History H/O ovarian cystectomy (09/2019) History of bilateral oophorectomy History of hysterectomy History of tubal ligation Social History household members: none Smoking Status: Unknown if ever smoked Tobacco: How many years used: 15 substance use type: does not use ROS <SVETA Stout - Last Filed: 04/10/22 14:03> ROS ED ROS Narrative Constitutional: Negative for fever, chills, weight loss, weakness Eyes: Negative for vision loss, vision change, double vision ENT: Negative for any sore throat, ear pain, congestion Cardiovascular: Negative for any chest pain, tightness, palpitations Respiratory: Negative for any cough, sputum production, hemoptysis, dyspnea, dyspnea on exertion, orthopnea Gastrointestinal: Negative for any , constipation, blood in stool, blood in vomit. Positive for abdominal pain, nausea, vomiting : Negative for any urinary frequency, dysuria, retention, blood in urine Muscle skeletal: Negative for any muscle joint pain, stiffness, myalgias, arthralgias, neck pain, back pain. Positive right-sided flank pain Neurological: Negative for any headache, syncope, numbness or tingling, dizziness Skin: Negative for any rashes, lumps, itching, abrasions, lacerations Psychiatric: Negative for any depression, anxiety, stress, suicidal ideation, homicidal ideation Hematologic: Negative for any easy bruising, excessive bruising, easy bleeding Allergies: Negative for any eczema, hives, rash EXAM <SVETA Stout - Last Filed: 04/10/22 14:03> Physical Exam Narrative Exam Narrative: Vital signs reviewed. HEET: Head normocephalic atraumatic, TMs clear bilaterally. Posterior pharynx is clear, moist mucous membranes. Nares clear bilaterally. Neck: Supple with no lymphadenopathy or tenderness. No signs of meningismus, negative jolt sign. Cardiac: Regular rate and rhythm no murmurs gallops or rubs, equal peripheral pulses bilaterally. Respiratory: Lungs clear to auscultation bilaterally. No chest tenderness. Abdomen: Soft, nondistended. No abdominal bruit or pulsatile masses. No hepatosplenomegaly. Patient has tenderness to the right upper quadrant, right flank area, patient continually pushed my hand away from her right upper quadrant however I told her several times that she needs to let me evaluate her. Pain seemed out of proportion. Extremities: No peripheral edema, no signs of gross trauma or deformity. Active full range of motion of all extremities. Neuro: Cranial nerves II through XII intact, no focal neurological deficits. Skin: Clean dry and intact with no rash, purpura, petechiae, vesicles or pustules. Backs/flank: No CVA tenderness, no midline spinal tenderness, no deformity. Psych: Normal mood and affect. No SI, HI or acute psychosis. Const Vital Signs: 04/10/22 10:57 04/10/22 10:58 Temperature 98.1 F 98.1 F Temperature Source Temporal Temporal Pulse Rate 105 H 105 H Respiratory Rate 11 L 11 L Blood Pressure 135/66 H 135/66 H Blood Pressure Mean 89 Pulse Ox 97 97 Oxygen Delivery Method Room Air Room Air Positive well nourished, well developed and obese General Appearance ED: well developed Nutritional Appearance: obese <Dr. Mor Painter MD - Last Filed: 04/10/22 14:43> Physical Exam Const Vital Signs: 04/10/22 10:57 04/10/22 10:58 Temperature 98.1 F 98.1 F Temperature Source Temporal Temporal Pulse Rate 105 H 105 H Respiratory Rate 11 L 11 L Blood Pressure 135/66 H 135/66 H Blood Pressure Mean 89 Pulse Ox 97 97 Oxygen Delivery Method Room Air Room Air [facility] <Carson RamosSVETA - Last Filed: 04/10/22 14:03> [facility] Lab Data Attestation: I reviewed the patient's lab results. Labs: Laboratory Results - last 24 hr 04/10/22 04/10/22 04/10/22 12:05 12:55 12:55 WBC 8.8 RBC 4.35 Hgb 12.6 Hct 38.9 MCV 89.4 MCH 29.0 MCHC 32.4 RDW Std Deviation 48.2 H RDW Coeff of Shun 14.8 H Plt Count 242 MPV 10.7 Immature Gran % (Auto) 1.600 H Neut % (Auto) 53.8 Lymph % (Auto) 34.3 [place] % (Auto) 6.4 Eos % (Auto) 3.2 Baso % (Auto) 0.7 Absolute Neuts (auto) 4.8 Absolute Lymphs (auto) 3.03 Nucleated RBC % 0 Sodium 137 Potassium 5.0 Chloride 105 Carbon Dioxide 27.0 Anion Gap 5 BUN 11 Creatinine 0.81 Estim Creat Clear Calc 68.27 Est GFR (MDRD) Af Amer 100 Est GFR (MDRD) Non-Af 82 BUN/Creatinine Ratio 13.6 Glucose 105 Calcium 9.1 Total Bilirubin 0.40 Direct Bilirubin 0.06 AST 29 ALT 33 Alkaline Phosphatase 129 H Total Protein 7.9 Albumin 3.7 Globulin 4.2 Lipase 191 Urine Color Yellow Urine Clarity Cloudy Urine pH 8.0 Ur Specific [place] 1.010 Urine Protein Negative Urine Glucose (UA) Normal Urine Ketones Negative Urine Occult Blood Negative Urine Nitrite Negative Urine Bilirubin Negative Urine Urobilinogen Normal Ur Leukocyte Esterase 25 H Urine RBC 0 SEEN Urine WBC 0-5 SEEN Ur Squamous Epith Cells 0-5 SEEN Amorphous Sediment 1+ Urine Bacteria 1+ Urine Mucus 1+ Radiography Diagnostic Testing: Clinical Impression(s) from Imaging Studies Abdomen/Pelvis CT 04/10/22 12:26 IMPRESSION: No acute abnormality identified. Hepatomegaly with cysts. Cholecystectomy. Electronically Signed: Jadyn Neff MD at 12:48 EDT , Treatment and Re-Evaluation Narrative: Patient arrives in mild amount of abdominal pain, patient presents to the emergency department with acute on chronic abdominal pain, patient's vital signs are stable, patient looks nontoxic. Patient will have a full abdominal work-up. Patient laboratory values showed a normal CBC, patient's chemistries were unremarkable, patient does have an elevated alkaline phosphatase however it is 129, this appears to be baseline for the patient. Patient's lipase was negative. She did receive a CT scan without contrast, this showed no acute abnormality identified. Patient was given IV fluids, IV morphine, IV Zofran. Patient states to have slight relief. After reviewing the patient's chart, the patient has been to the emergency department several times for this issue, the patient does have a care plan here. At this time, the patient will be given discharge instructions, she will follow-up with her primary care physician as well as her specialist. She will be given Zofran as well as Bentyl for home. Patient is happy with the plan of care and is stable for discharge. No narcotics given to this patient for discharge. <Dr. Mor Painter MD - Last Filed: 04/10/22 14:43> [facility] Narrative Medical decision making narrative: I have personally performed a face to face assessment of the patient and have reviewed the NORMAN Note. I performed a substantive portion of the visit including all aspects of the following. My guzman findings include: History is remarkable for right-sided pain, left upper quadrant pain. Patient emphasized that she has history of renal and ureteral calculi and prior history of pancreatitis. Patient admitted that she has a care plan. She denies fever, chills night sweats. She denies food intolerance. She denies dysuria, frequency, urgency or hematuria. She does report nausea. She endorses diarrhea for the past 3 to 4 days. She denies blood or mucus in the diarrhea. Exam is unremarkable. Patient has a depressed affect. After asking questions she was noted to have tears. She also became traumatic. HEENT exam is remarkable for dry mucosa. Heart is regular. There is no murmur, gallop or rub. Lungs are clear to auscultation with good air bilaterally. Patient has pain out of proportion to light tactile stimulus of the abdomen. Bowel sounds are diminished. There is no hepatosplenomegaly. Medical Decision Making patient has care plan. Plan is no opiate analgesia unless she has verifiable pathology. Patient was made aware of this. CBC is unremarkable. Comprehensive metabolic panel including lipase is unremarkable. Urine is unremarkable. Other additions or changes: Patient was discharged home in stable condition. Lab Data Attestation: I reviewed the patient's lab results. Labs: Laboratory Results - last 24 hr 04/10/22 04/10/22 04/10/22 12:05 12:55 12:55 WBC 8.8 RBC 4.35 Hgb 12.6 Hct 38.9 MCV 89.4 MCH 29.0 MCHC 32.4 RDW Std Deviation 48.2 H RDW Coeff of Shun 14.8 H Plt Count 242 MPV 10.7 Immature Gran % (Auto) 1.600 H Neut % (Auto) 53.8 Lymph % (Auto) 34.3 [place] % (Auto) 6.4 Eos % (Auto) 3.2 Baso % (Auto) 0.7 Absolute Neuts (auto) 4.8 Absolute Lymphs (auto) 3.03 Nucleated RBC % 0 Sodium 137 Potassium 5.0 Chloride 105 Carbon Dioxide 27.0 Anion Gap 5 BUN 11 Creatinine 0.81 Estim Creat Clear Calc 68.27 Est GFR (MDRD) Af Amer 100 Est GFR (MDRD) Non-Af 82 BUN/Creatinine Ratio 13.6 Glucose 105 Calcium 9.1 Total Bilirubin 0.40 Direct Bilirubin 0.06 AST 29 ALT 33 Alkaline Phosphatase 129 H Total Protein 7.9 Albumin 3.7 Globulin 4.2 Lipase 191 Urine Color Yellow Urine Clarity Cloudy Urine pH 8.0 Ur Specific [place] 1.010 Urine Protein Negative Urine Glucose (UA) Normal Urine Ketones Negative Urine Occult Blood Negative Urine Nitrite Negative Urine Bilirubin Negative Urine Urobilinogen Normal Ur Leukocyte Esterase 25 H Urine RBC 0 SEEN Urine WBC 0-5 SEEN Ur Squamous Epith Cells 0-5 SEEN Amorphous Sediment 1+ Urine Bacteria 1+ Urine Mucus 1+ Radiography Diagnostic Testing: Clinical Impression(s) from Imaging Studies Abdomen/Pelvis CT 04/10/22 12:26 IMPRESSION: No acute abnormality identified. Hepatomegaly with cysts. Cholecystectomy. Electronically Signed: Jadyn Neff MD at 12:48 EDT , Discharge Plan Triage Chief Complaint: Flank Pain ED Midlevel Provider: Carson Ramos ED Provider: Mor Painter Dx/Rx/DC Orders Clinical Impression: Abdominal pain, Acute right flank pain, Diarrhea, Acute dehydration Instructions: Abdominal Pain, ED Abdominal Pain Unkn Cause Fem Prescriptions: New dicyclomine 20 mg tablet 20 mg PO BID Qty: 10 0RF ondansetron 4 mg tablet,disintegrating 4 mg PO Q8H PRN (Reason: nausea and vomiting) Qty: 10 0RF No Action buspirone 10 mg tablet 10 mg PO BID prazosin 1 MG capsule 1 mg PO QHS gabapentin 400 MG capsule 800 mg PO TID hydroxyzine HCl 50 MG tablet 50 mg PO QHS omeprazole magnesium 20 MG tablet,delayed release (DR/EC) 20 mg PO DAILY paroxetine HCl 10 mg tablet 10 mg PO DAILY Label Comments: TAKE 1 TABLET BY MOUTH EVERY DAY clindamycin HCl 150 MG capsule 300 mg PO 4X/DAY Qty: 80 0RF sucralfate [Carafate] 1 gram Tablet 1 g PO BID baclofen 10 mg tablet 10 mg PO DAILY Label Comments: TAKE 1 TABLET BY MOUTH TWICE A DAY FOR 5 DAYS promethazine 25 mg tablet 25 mg PO TID PRN (Reason: nausea and vomiting) Qty: 14 0RF hydrocodone-acetaminophen 5-325 mg tablet 1 tab PO Q6H PRN (Reason: pain) 3 Days Qty: 10 0RF Primary Care Provider: Marcelino Albert Referrals: Marcelino Albert MD [Primary Care Provider] - Activity Restrictions/Additional Instructions: Follow-up with your specialist. Disposition Disposition: Home, Self Care Discharge Date/Time: 04/10/22 14:13
[2022-04-10 12:15] LABS: Red Blood Cells-Urine 0 SEEN /hpf (0-5)
[2022-04-10 12:18] LABS: Color, Urine Yellow (Yellow); Glucose, Dipstick Normal (Normal); Ketone-Dipstick Negative (Negative); Leukocyte Esterase-Dipstick 25 /ul (Negative); Nitrite-Dipstick Negative (Negative); Occult Blood-Urine Negative /ul (Negative); Protein-Dipstick Negative (Negative); Urine Bilirubin Dipstick Negative (Negative); Urine Clarity Cloudy (Clear); Urine Urobilinogen Normal (Normal)
--- NOTE | 2022-04-10 12:26 | CT_ITS ---
HISTORY: Pain. TECHNIQUE: Helically acquired images were obtained of the abdomen and pelvis without oral or IV contrast. A radiation dose optimization technique was used for this scan. 534 images. COMPARISON: 01/14/2021. FINDINGS: LOWER CHEST: Lung bases clear. BOWEL: Bowel including appendix nondilated. No focal pericolonic inflammatory change. PERITONEUM: No significant free fluid. LIVER: Enlarged liver with multiple cysts. GALLBLADDER/BILIARY TREE: Cholecystectomy. SPLEEN/PANCREAS: Not enlarged. KIDNEYS AND URETERS: No nephrolithiasis or obstructing ureteral calculus. ADRENAL GLANDS: No nodules. VESSELS: No abdominal aortic aneurysm. PELVIC ORGANS: Hysterectomy. ABDOMINAL WALL: Mild lower anterior scarring. BONES: Intact. CT/Abdomen/Pelvis without Cont IMPRESSION: No acute abnormality identified. Hepatomegaly with cysts. Cholecystectomy. Electronically Signed: Jadyn Neff MD at 12:48 EDT ,
[2022-04-10 12:34] LABS: Amorphous Sediment 1+; Bacteria 1+ /hpf (None Seen); Mucous, Urine 1+ /hpf (<or=2+); Squamous Epithelial Cells - UA 0-5 SEEN /hpf (5-10); White Blood Cells 0-5 SEEN /hpf (0-5)
[2022-04-10] MEDS: 0.9% Normal Saline 1,000 ML 1000 ML IV (12:59)
[2022-04-10] MEDS: Morphine 4 MG/ML Syringe IV (12:59)
[2022-04-10] MEDS: Ondansetron 4 MG/2 ML Vial IV (12:59)
[2022-04-10 13:03] LABS: Absolute Lymphocyte Count 3.03 X10^3/uL (0.83-4.51); Absolute Neutrophil Count 4.8 X10^3/uL (2.0-7.7); Basophil# 0.06 X10^3/uL; Basophil% 0.7 % (0-1); Eosinophil# 0.28 X10^3/uL; Eosinophils% 3.2 % (0-5); Hematocrit 38.9 % (37-47); Hemoglobin 12.6 g/dL (12.0-15.0); Lymphocyte # 3.03 X10^3/ul (0.83-4.51); Lymphocyte % 34.3 % (19-41); Mean Corp Hgb Conc 32.4 g/dL (32-36); Mean Corpuscular Volume 89.4 fL (81-99); Mean Platelet Vol. 10.7 fl (6.2-12.0); Monocyte# 0.57 X10^3/uL; Monocyte% 6.4 % (0-10); NRBC Flagged by Analyzer 0 % (0-5); Neutrophil # 4.76 X10^3/uL (2.7-7.7); Neutrophil % 53.8 % (47-70); Platelet Count 242 K/mm3 (150-450); RBC Distribution Width CV 14.8 % (11.6-14.6); RBC Distribution Width SD 48.2 fl (35.1-43.9); Red Blood Count 4.35 M/mm3 (4.2-5.4); White Blood Count 8.8 K/mm3 (4.4-11.0)
[2022-04-10 13:30] LABS: AST(SGOT) 29 U/L (15-37); Alanine Aminotransfer ALT/SGPT 33 U/L (13-56); Albumin, Serum 3.7 g/dL (3.2-5.0); Alkaline Phosphatase 129 U/L (45-117); Anion Gap 5 (5-15); BUN 11 mg/dL (7-18); BUN/Creat Ratio 13.6 RATIO (10-20); Bilirubin, Direct 0.06 mg/dL (0.00-0.30); Calcium,Total 9.1 mg/dL (8.5-10.1); Chloride 105 mmol/L (98-107); Creatinine, Serum 0.81 mg/dL (0.55-1.02); EST Glomerular Filtration Rate 82 mL/min (>60); Est Glom Filt Rate - Afr Amer 100 mL/min (>60); Estimated Creatinine Clearance 68.27 ml/min; Globulin 4.2 g/dL (2.2-4.2); Glucose 105 mg/dL (74-106); Lipase 191 U/L (73-393); Protein, Total 7.9 g/dL (6.4-8.2); Sodium Level 137 mmol/L (136-145)
--- NOTE | 2022-04-10 13:47 | ED.RN ---
PT IN ROOM. STATES PAIN IS BACK. REQUESTS MORE PAIN MEDICATION
== END 2022-04-10 14:13 | disposition home or self-care (01) ==
PROVIDERS: Nurse Practitioner; Emergency Provider Emergency Medicine; PCP Family Medicine; Visit Provider Emergency Medicine
DX: R10.9 Unspecified abdominal pain (principal); F31.9 Bipolar disorder, unspecified; Z87.442 Personal history of urinary calculi; Z85.42 Personal history of malignant neoplasm of other parts of uterus; E78.5 Hyperlipidemia, unspecified; E66.9 Obesity, unspecified; K85.90 Acute pancreatitis without necrosis or infection, unspecified; F41.9 Anxiety disorder, unspecified; K76.89 Other specified diseases of liver; G89.29 Other chronic pain; Z79.899 Other long term (current) drug therapy; R19.7 Diarrhea, unspecified; E86.0 Dehydration; Z68.39 Body mass index [BMI] 39.0-39.9, adult
CPT/HCPCS: 74176; 80048; 80076; 81001; 83690; 85025; 96361; 96374; 96375; 99282; J7030; J2405

== ENCOUNTER 2022-07-29 13:09 | Emergency (ER) | payer MEDICAID, SELFPAY ==
[2022-07-29 13:11] VITALS: PULSE 90; RESP 15; TEMP 37.6; O2SAT 97; BMI 38.8
[2022-07-29 13:13] VITALS: BP 140/68; PULSE 90; RESP 15; TEMP 37.6; O2SAT 97
[2022-07-29 13:28] VITALS: O2SAT 96
--- NOTE | 2022-07-29 13:53 | RAD_ITS ---
STUDY: X-RAY CHEST REASON FOR EXAM: Female, 41 years old. Cough, wheezing TECHNIQUE: AP and lateral views of the chest. COMPARISON: Comparison is made with prior study 10/04/2021. FINDINGS: EKG electrodes are seen. Stable elevation of the right hemidiaphragm. The lungs are clear. There is no demonstrated pleural abnormality. Normal size heart. Normal mediastinum and [place]. Normal visualized pulmonary arteries. Normal visualized aortic arch and descending thoracic aorta. Normal visualized thoracic spine. Normal visualized ribs, clavicles, and shoulders. There is no demonstrated abnormality of the visualized soft tissue structures of the upper abdomen. RAD/Chest PA and Lateral IMPRESSION: Stable elevation of the right hemidiaphragm. The lungs are clear. Electronically Signed: Genaro Hines MD at 15:06 [facility] ,
--- NOTE | 2022-07-29 13:54 | EX.ED.VIS.UR ---
HPI HPI - URI History of Present Illness Chief Complaint: Cough Detail of Chief Complaint: Respiratory symptoms that started 1 month ago Informant: patient Onset/Context/Timing Onset: Month(s) Context: Sudden Onset Timing: Continuous and Waxes and wanes Quality: Nonproductive cough, wheezing, dyspnea on exertion Location: Respiratory Current Severity: Mild Maximum Severity: Moderate Worsened by: - (Activity); Not Worsened By Swallowing, Eating Solids or Drinking Liquids Relieved by: - (Nothing) Associated Symptoms Associated Symptoms: Positive for Shortness of Breath and Nonproductive cough; Negative for Nasal Congestion, Headache, Sinus Pressure, Myalgias, Nausea, Vomiting, Diarrhea, Chest Pain or Hemoptysis Narrative Narrative: Patient is a 41-year-old woman who started smoking at the age of 19 who presents with essentially a nonproductive cough for the past month. She has been seen urgent care and had a negative COVID, and influenza test. She presently denies headache, rhinorrhea, congestion, postnasal drainage. She presently denies myalgias arthralgias. She denies vomiting or diarrhea. She denies urologic symptoms. Prior similar symptoms: Yes Recent Illness/Hospitalization: Yes ROS ROS ED Constitutional Constitutional ED: Denies chills, fever(s), subjective, sweats or weight loss Eyes Eyes: Denies blurry vision, change in vision or diplopia ENT ENT ED: Reports sore throat; Denies ear pain or rhinorrhea Cardiovascular Cardiovascular: Denies chest pain, orthopnea, palpitations, paroxysmal nocturnal dyspnea or racing heartbeat Respiratory/Chest Respiratory/Chest: Reports cough, dyspnea and dyspnea on exertion; Denies orthopnea, paroxysmal nocturnal dyspnea or sputum Gastrointestinal Gastrointestinal: Denies abdominal pain, diarrhea, nausea or vomiting Genitourinary Genitourinary ED: Denies dysuria, hematuria or urinary frequency Musculoskeletal Musculoskeletal: Denies arthralgias, back pain, myalgias or neck pain Integumentary Denies abscess, Abrasions or rash Neurologic Neurologic: Reports weakness; Denies headache(s) or paresthesias Psychiatric Psychiatric: Denies anxiety or depression Endocrine Endocrinology: Denies cold intolerance or heat intolerance Hematologic/Lymphatic Hematologic/Lymphatic: Denies easy bleeding or easy bruising [facility] Medical History Bipolar disorder Chronic pain History of renal calculi History of uterine cancer (2006) Hyperlipidemia Incomplete right bundle branch block Lung nodule Migraine Obesity Ovarian cyst Pancreatitis Right tubo-ovarian mass Ureteral stone with hydronephrosis Home Medications prazosin 1 mg capsule 1 mg PO QHS 03/26/20 [History Last Taken Unknown] gabapentin 400 mg capsule 800 mg PO TID 10/03/20 [History Last Taken Unknown] hydroxyzine HCl 50 mg tablet 50 mg PO QHS 10/03/20 [History Last Taken Unknown] omeprazole magnesium 20 mg tablet,delayed release 20 mg PO DAILY 10/03/20 [History Last Taken Unknown] buspirone 10 mg tablet 10 mg PO BID 11/19/20 [History Last Taken Unknown] paroxetine HCl 10 mg tablet 10 mg PO DAILY 02/27/21 [History Last Taken Unknown] clindamycin HCl 150 mg capsule 300 mg PO 4X/DAY #80 CAPSULES 04/10/21 [Rx Last Taken Unknown] baclofen 10 mg tablet 10 mg PO DAILY 06/14/21 [History Last Taken Unknown] hydrocodone-acetaminophen 5-325mg 5mg-325mg 1 tab PO Q6H PRN pain 3 days #10 tabs 06/14/21 [Rx Last Taken Unknown] promethazine 25 mg tablet 25 mg PO TID PRN nausea and vomiting #14 tabs 06/14/21 [Rx Last Taken Unknown] sucralfate 1 gram tablet (Carafate) 1 g PO BID 06/14/21 [History Last Taken Unknown] dicyclomine 20 mg tablet 20 mg PO BID #10 tabs 04/10/22 [Rx Last Taken Unknown] ondansetron 4 mg disintegrating tablet 4 mg PO Q8H PRN nausea and vomiting #10 tabs 04/10/22 [Rx Last Taken Unknown] doxycycline monohydrate 100 mg capsule 100 mg PO BID #9 CAPSULES 07/29/22 [Rx Last Taken Unknown] Allergy/AdvReac Type Severity Reaction Status Date / Time ketorolac tromethamine Allergy Rash Verified 07/29/22 13:11 [From Toradol] metronidazole [From Flagyl] Allergy Hives Verified 07/29/22 13:11 Penicillins Allergy Hives Verified 07/29/22 13:11 aspirin AdvReac Upset Verified 07/29/22 13:[address] DYE Allergy Anaphylaxis Uncoded 07/29/22 13:11 IV contrast Allergy Anaphylaxis Uncoded 07/29/22 13:11 Family History Aunt Breast cancer Grandfather CAD (coronary artery disease) Father Heart disease, Onset Age: 73 Triple bypass Mother Heart disease, Onset Age: 62 Other Diabetes Surgical History H/O ovarian cystectomy (09/2019) History of bilateral oophorectomy History of hysterectomy History of tubal ligation Social History household members: none Smoking Status: Current every day smoker tobacco type: cigarettes Tobacco: How many years used: 15 substance use type: does not use EXAM Physical Exam Const Vital Signs: 07/29/22 13:11 07/29/22 13:28 07/29/22 13:13 Temperature 99.6 F H 99.6 F H Temperature Source Temporal Temporal Pulse Rate 90 90 Respiratory Rate 15 15 Respiratory Effort Normal Blood Pressure 140/68 H Blood Pressure Mean 92 Pulse Ox 97 97 Oxygen Delivery Method Room Air Room Air Room Air 07/29/22 14:18 07/29/22 14:18 07/29/22 14:19 Temperature Temperature Source Pulse Rate 80 Respiratory Rate 18 18 Respiratory Effort Normal Blood Pressure Blood Pressure Mean Pulse Ox 95 95 Oxygen Delivery Method Room Air Room Air Positive well nourished and well developed; Negative for contractures General Appearance ED: well developed and NAD; Negative for contractures, cyanotic, diaphoretic or pallor HEENT Reports moist mucous membranes HEENT Narrative: Head is atraumatic. normocephalic and atraumatic Throat: posterior oropharynx normal Eyes PERRL and EOMs intact bilaterally General Eye ED: Negative for pale conjunctiva or scleral icterus Neck no lymphadenopathy, supple, no meningeal signs and no JVD Neck Narrative: Trachea is midline. There is no in-store expiratory stridor. Resp normal respiratory effort and No clear to auscultation bilaterally Resp Narrative: Scattered bilateral expiratory wheezes noted. Cardio S1 normal heart sound, S2 normal heart sound and no murmurs Rate: regular rate Rhythm: regular rhythm GI non-tender, non-distended and no masses Auscultation: normoactive bowel sounds Palpation: soft Back/Spine no CVA tenderness Cervical Spine: Negative for cervical spine tenderness Thoracic Spine / Upper Back: Negative for thoracic spinal tenderness Lumbar Spine / Lower Back: Negative for lumbar spinal tenderness Extremity normal to inspection and full ROM General Extremety ED: Negative for cyanosis or tenderness General Extremity: Negative for cyanosis Neuro oriented x3, CN's II-XII intact bilaterally and no sensory deficits noted Sensorium / Orientation: alert Motor Exam: strength 5/5 throughout Psych mental status grossly normal Skin General Skin Exam: Negative for jaundice or pallor Lesions: no lesions Rashes: no rashes MDM MDM MDM Narrative Medical decision making narrative: With patient having a cough for 1 month and wheezing will obtain chest x-ray to evaluate for pneumonia versus probable COPD exacerbation. Patient was treated with DuoNeb followed by albuterol and 60 mg of prednisone p.o. Since this has been present for 1 month and she has had rapid test for COVID and influenza these were not repeated. Patient refused the prednisone she was prescribed. Radiography Diagnostic Testin view chest x-ray is normal. This was independently reviewed and interpreted by me at 1442. Cardiac silhouette size normal. Perihilar region normal. Lung parenchyma normal. Osseous structures normal. Treatment and Re-Evaluation Narrative: Patient was informed of her chest x-ray results. Patient was informed that prednisone would be beneficial. She refused because she reports it makes her agitated. We will order Kenalog. Patient was placed on a short course of antibiotics. She was instructed to stop smoking. Discharge Plan Triage Chief Complaint: Cough ED Provider: Mor Painter Dx/Rx/DC Orders Clinical Impression: Chronic bronchitis, Bronchospasm, Tobacco use Instructions: ED Upper Resp Infec Abx Tx Prescriptions: New doxycycline monohydrate 100 mg capsule 100 mg PO BID Qty: 9 0RF No Action buspirone 10 mg tablet 10 mg PO BID prazosin 1 MG capsule 1 mg PO QHS gabapentin 400 MG capsule 800 mg PO TID hydroxyzine HCl 50 MG tablet 50 mg PO QHS omeprazole magnesium 20 MG tablet,delayed release (DR/EC) 20 mg PO DAILY paroxetine HCl 10 mg tablet 10 mg PO DAILY Label Comments: TAKE 1 TABLET BY MOUTH EVERY DAY clindamycin HCl 150 MG capsule 300 mg PO 4X/DAY Qty: 80 0RF sucralfate [Carafate] 1 gram Tablet 1 g PO BID baclofen 10 mg tablet 10 mg PO DAILY Label Comments: TAKE 1 TABLET BY MOUTH TWICE A DAY FOR 5 DAYS promethazine 25 mg tablet 25 mg PO TID PRN (Reason: nausea and vomiting) Qty: 14 0RF hydrocodone-acetaminophen 5-325 mg tablet 1 tab PO Q6H PRN (Reason: pain) 3 Days Qty: 10 0RF dicyclomine 20 mg tablet 20 mg PO BID Qty: 10 0RF ondansetron 4 mg tablet,disintegrating 4 mg PO Q8H PRN (Reason: nausea and vomiting) Qty: 10 0RF Primary Care Provider: Isabel Arias Referrals: Marcelino Albert MD [Non-Staff] - 1 Week if not improving Activity Restrictions/Additional Instructions: It is in your best interest to quit smoking. Because you smoke you may have a cough for an additional 2 to 4 weeks. Disposition Disposition: Home, Self Care
--- NOTE | 2022-07-29 13:57 | CM.ED ---
SW Note SW reviewed chart and patient has a care plan. updated. Whit CARVAJAL
[2022-07-29] MEDS: Ipratropium/Albuterol Sulfate 3 ML AMPUL.NEB INHALATION (14:17)
[2022-07-29 14:18] VITALS: PULSE 80; RESP 18; O2SAT 95
[2022-07-29 14:19] VITALS: RESP 18; O2SAT 95
[2022-07-29] MEDS: Triamcinolone Acetonide 40 MG/ML Vial 80 MG IM (15:12)
[2022-07-29] MEDS: Doxycycline 100 MG CAPSULE PO (15:18)
== END 2022-07-29 15:27 | disposition home or self-care (01) ==
PROVIDERS: Emergency Provider Emergency Medicine; PCP Physician Assistant; Visit Provider Emergency Medicine
DX: J40 Bronchitis, not specified as acute or chronic (principal); F31.9 Bipolar disorder, unspecified; F17.210 Nicotine dependence, cigarettes, uncomplicated; E78.5 Hyperlipidemia, unspecified; Z20.822 Contact with and (suspected) exposure to COVID-19; Z79.899 Other long term (current) drug therapy; E66.9 Obesity, unspecified
CPT/HCPCS: G0463; 71046; 94640; 96372; 99251; 99284

== ENCOUNTER 2022-09-07 01:49 | Emergency (ER) | payer MEDICAID, SELFPAY ==
[2022-09-07 01:50] VITALS: BP 123/77; PULSE 76; RESP 16; TEMP 35.7; O2SAT 98; BMI 45.8
--- NOTE | 2022-09-07 02:03 | CT_ITS ---
STUDY: CT BRAIN WITHOUT CONTRAST REASON FOR EXAM: Female, 42 years old. Trauma RADIATION DOSAGE (If Supplied By Facility): CTDIvol = ( 44.99 ) mGy, DLP = ( 796.11 ) mGycm TECHNIQUE: Transaxial CT imaging of the brain was performed without administration of intravenous contrast material. Individualized dose optimization techniques were used for this CT. COMPARISON: No relevant priors. FINDINGS: Normal soft tissue structures. Normal calvarium. Normal size ventricles and extra-axial spaces for the patient''s age. Normal white matter tracts of the cerebral hemispheres. Normal basal ganglia and thalami. Normal brainstem. Normal cerebellum. There is no intracranial hemorrhage. There are no findings of an acute ischemic infarction. Normal visualized paranasal sinuses. CT/Brain/Head without Contrast IMPRESSION: Normal unenhanced CT scan of the brain. Electronically Signed: Anahi Rivas MD at 3:09 EST ,
--- NOTE | 2022-09-07 02:05 | EX.ED.DYSGE1 ---
HPI History of Present Illness Chief Complaint: Syncope Informant: patient Narrative Narrative: Patient's patient she had a syncopal episode at home. She states she was feeling lightheaded and called for her boyfriend and then woke up on the ground. She states she hit her head and has a headache. She was not having headache prior to this. No neurologic episode or symptoms. No chest pain or palpitations that she recalls. Not short of breath. She has not been sick recently. She does have a history of these episodes. She has had multiple over the last 2 or so years. She has been admitted to the hospital twice for them but they have never found the source of them. She has been feeling normally recently. She did take multiple meds this evening which are her nighttime meds but could contribute to this. These Seroquel, gabapentin, Benadryl, BuSpar. It sounds like none of these are new or different. She does not think she took extra doses. Her only complaint right now is a headache. [facility] Medical History Bipolar disorder Chronic pain History of renal calculi History of uterine cancer (2006) Hyperlipidemia Incomplete right bundle branch block Lung nodule Migraine Obesity Ovarian cyst Pancreatitis Right tubo-ovarian mass Ureteral stone with hydronephrosis Home Medications prazosin 1 mg capsule 1 mg PO QHS 03/26/20 [History Last Taken Unknown] gabapentin 400 mg capsule 800 mg PO TID 10/03/20 [History Last Taken Unknown] hydroxyzine HCl 50 mg tablet 50 mg PO QHS 10/03/20 [History Last Taken Unknown] omeprazole magnesium 20 mg tablet,delayed release 20 mg PO DAILY 10/03/20 [History Last Taken Unknown] buspirone 10 mg tablet 10 mg PO BID 11/19/20 [History Last Taken Unknown] paroxetine HCl 10 mg tablet 10 mg PO DAILY 02/27/21 [History Last Taken Unknown] baclofen 10 mg tablet 10 mg PO DAILY 06/14/21 [History Last Taken Unknown] hydrocodone-acetaminophen 5-325mg 5mg-325mg 1 tab PO Q6H PRN pain 3 days #10 tabs 06/14/21 [Rx Last Taken Unknown] promethazine 25 mg tablet 25 mg PO TID PRN nausea and vomiting #14 tabs 10/01/21 [Rx Last Taken Unknown] sucralfate 1 gram tablet (Carafate) 1 g PO BID 06/14/21 [History Last Taken Unknown] dicyclomine 20 mg tablet 20 mg PO BID #10 tabs 04/10/22 [Rx Last Taken Unknown] ondansetron 4 mg disintegrating tablet 4 mg PO Q8H PRN nausea and vomiting #10 tabs 04/10/22 [Rx Last Taken Unknown] doxycycline monohydrate 100 mg capsule 100 mg PO BID #9 CAPSULES 07/29/22 [Rx Last Taken Unknown] estradiol 0.5 mg tablet 0.5 mg PO DAILY 09/07/22 [History Last Taken Unknown] quetiapine 50 mg tablet 50 mg PO QHS 09/07/22 [History Last Taken Unknown] Allergy/AdvReac Type Severity Reaction Status Date / Time ketorolac tromethamine Allergy Rash Verified 09/07/22 01:50 [From Toradol] metronidazole [From Flagyl] Allergy Hives Verified 09/07/22 01:50 Penicillins Allergy Hives Verified 09/07/22 01:50 aspirin AdvReac Upset Verified 09/07/22 01:[address] DYE Allergy Anaphylaxis Uncoded 09/07/22 01:50 IV contrast Allergy Anaphylaxis Uncoded 09/07/22 01:50 Family History Aunt Breast cancer Grandfather CAD (coronary artery disease) Father Heart disease, Onset Age: 73 Triple bypass Mother Heart disease, Onset Age: 62 Other Diabetes Surgical History H/O ovarian cystectomy (09/2019) History of bilateral oophorectomy History of hysterectomy History of tubal ligation Social History household members: none Smoking Status: Current every day smoker tobacco type: cigarettes Tobacco: How many years used: 15 substance use type: does not use ROS ROS ED Constitutional Constitutional ED: Denies chills, fever(s) or subjective Eyes Eyes: Denies blurry vision, change in vision or diplopia ENT ENT ED: Denies rhinorrhea or sore throat Cardiovascular Cardiovascular: Denies chest pain, palpitations or racing heartbeat Respiratory/Chest Respiratory/Chest: Denies cough or dyspnea Gastrointestinal Gastrointestinal: Denies diarrhea, nausea or vomiting Genitourinary Genitourinary ED: Denies hematuria Musculoskeletal Musculoskeletal: Denies arthralgias or myalgias Integumentary Denies Abrasions or rash Neurologic Neurologic: Reports headache(s); Denies paresthesias or weakness Psychiatric Psychiatric: Reports anxiety and depression Endocrine Endocrinology: Denies polydipsia or polyuria Hematologic/Lymphatic Hematologic/Lymphatic: Denies easy bleeding or easy bruising Allergic/Immunologic Allergic/Immunologic ED: Denies urticaria EXAM Physical Exam Const Vital Signs: 09/07/22 01:50 09/07/22 01:56 Temperature 96.2 F L Temperature Source Temporal Pulse Rate 76 Respiratory Rate 16 Respiratory Effort Normal Non-Labored Respiratory Pattern Normal Blood Pressure 123/77 H Blood Pressure Mean 92 Pulse Ox 98 Oxygen Delivery Method Room Air Positive well nourished and well developed General Appearance ED: well developed and NAD HEENT Reports dry mucous membranes HEENT Narrative: Do not see definitive areas of bruising or contusion or injury on her scalp or skull. She does appear to have some mildly dry mucous membranes. Mouth ED: Yes dry mucous membranes Mouth: dry mucous membranes Eyes EOMs intact bilaterally Eyes Narrative: Pupils are equal round reactive to light. Extraocular patient isintact. Neck Neck Narrative: No cervical spine tenderness. General: Negative for tenderness Resp normal respiratory effort and clear to auscultation bilaterally Effort and Inspection: Negative for pain with movement Auscultation: Negative for rales, rhonchi or wheezes Cardio regular rate, regular rhythm and no murmurs Rate: Negative for bradycardia or tachycardic GI normal to inspection, nondistended, normoactive bowel sounds, non-tender and non-distended Back/Spine no CVA tenderness Extremity normal to inspection Extremity Narrative: No edema, cords, tenderness or asymmetry. No distended veins. General Extremety ED: Negative for edema or tenderness General Extremity: Negative for edema Neuro oriented x3 Neuro Narrative: Patient is alert and oriented x3. No flight of ideas. No expressive or receptive aphasia. No focal deficit in terms of weakness or numbness. Sensorium / Orientation: alert Psych mental status grossly normal Skin no rashes or lesions noted MDM MDM MDM Narrative Medical decision making narrative: CT is negative. CBC shows nonspecific elevation of white count at 12.1. Hemoglobin and platelets are normal. Electrolytes are normal. Creatinine is 1.1. Alcohol tox are negative. I reviewed the monitor and there is no dysrhythmia. Patient states she has worn a monitor before she is not sure how long it was but thinks it was a few days. It did not show any ectopy. She has had these episodes before. She has had extensive work-up at other hospitals but has not found the source. I think we can get her home at this time. Lab Data Attestation: I reviewed the patient's lab results. Labs: Laboratory Results - last 24 hr 09/07/22 09/07/22 09/07/22 01:59 01:59 01:59 WBC 12.1 H RBC 4.49 Hgb 13.5 Hct 42.3 MCV 94.2 MCH 30.1 MCHC 31.9 L RDW Std Deviation 47.4 H RDW Coeff of Shun 13.8 Plt Count 287 MPV 11.3 Immature Gran % (Auto) 1.900 H Neut % (Auto) 53.3 Lymph % (Auto) 36.0 Parke % (Auto) 5.4 Eos % (Auto) 2.6 Baso % (Auto) 0.8 Absolute Neuts (auto) 6.5 Absolute Lymphs (auto) 4.36 Nucleated RBC % 0 Sodium 139 Potassium 4.1 Chloride 105 Carbon Dioxide 30.0 Anion Gap 4 L BUN 15 Creatinine 1.10 H Estim Creat Clear Calc 49.76 Est GFR (MDRD) Af Amer 70 Est GFR (MDRD) Non-Af 58 L BUN/Creatinine Ratio 13.6 Glucose 139 H Calcium 9.0 Urine Opiates Screen Urine Methadone Screen Ur Barbiturates Screen Ur Phencyclidine Scrn Ur Amphetamines Screen MDMA (Ecstasy) Screen U Benzodiazepines Scrn Urine Cocaine Screen U Cannabinoids Screen Ur Drug Screen Comment Ethyl Alcohol < 3.0 09/07/22 03:18 WBC RBC Hgb Hct MCV MCH MCHC RDW Std Deviation RDW Coeff of Shun Plt Count MPV Immature Gran % (Auto) Neut % (Auto) Lymph % (Auto) Parke % (Auto) Eos % (Auto) Baso % (Auto) Absolute Neuts (auto) Absolute Lymphs (auto) Nucleated RBC % Sodium Potassium Chloride Carbon Dioxide Anion Gap BUN Creatinine Estim Creat Clear Calc Est GFR (MDRD) Af Amer Est GFR (MDRD) Non-Af BUN/Creatinine Ratio Glucose Calcium Urine Opiates Screen NEGATIVE Urine Methadone Screen NEGATIVE Ur Barbiturates Screen NEGATIVE Ur Phencyclidine Scrn NEGATIVE Ur Amphetamines Screen NEGATIVE MDMA (Ecstasy) Screen NEGATIVE U Benzodiazepines Scrn NEGATIVE Urine Cocaine Screen NEGATIVE U Cannabinoids Screen NEGATIVE Ur Drug Screen Comment Ethyl Alcohol Radiography Diagnostic Testing: Clinical Impression(s) from Imaging Studies Brain CT 09/07/22 02:03 IMPRESSION: Normal unenhanced CT scan of the brain. Electronically Signed: Anahi Rivas MD at 3:09 EST , ET scan of the head looked at by me and read by radiology shows no sign of acute process. EKG Initial EKG: Comments: EKG done for syncope read by me showed sinus rhythm with overall rate of 70. No ventricular ectopy. FL interval, QRS duration and QTc normal. EKG is similar to 15 Jan 2020. She does have some nonspecific ST and T wave changes. Discharge Plan Triage Chief Complaint: Syncope ED Provider: Rob Cassidy Dx/Rx/DC Orders Clinical Impression: Syncope Instructions: ED Fainting, Uncertain Cause Prescriptions: No Action buspirone 10 mg tablet 10 mg PO BID prazosin 1 MG capsule 1 mg PO QHS gabapentin 400 MG capsule 800 mg PO TID hydroxyzine HCl 50 MG tablet 50 mg PO QHS omeprazole magnesium 20 MG tablet,delayed release (DR/EC) 20 mg PO DAILY paroxetine HCl 10 mg tablet 10 mg PO DAILY Label Comments: TAKE 1 TABLET BY MOUTH EVERY DAY sucralfate [Carafate] 1 gram Tablet 1 g PO BID baclofen 10 mg tablet 10 mg PO DAILY Label Comments: TAKE 1 TABLET BY MOUTH TWICE A DAY FOR 5 DAYS promethazine 25 mg tablet 25 mg PO TID PRN (Reason: nausea and vomiting) Qty: 14 0RF hydrocodone-acetaminophen 5-325 mg tablet 1 tab PO Q6H PRN (Reason: pain) 3 Days Qty: 10 0RF dicyclomine 20 mg tablet 20 mg PO BID Qty: 10 0RF ondansetron 4 mg tablet,disintegrating 4 mg PO Q8H PRN (Reason: nausea and vomiting) Qty: 10 0RF doxycycline monohydrate 100 mg capsule 100 mg PO BID Qty: 9 0RF estradiol 0.5 mg tablet 0.5 mg PO DAILY Label Comments: TAKE 1 TABLET BY MOUTH EVERY DAY quetiapine 50 mg tablet 50 mg PO QHS Label Comments: TAKE ONE TO TWO TABLETS BY MOUTH AT BEDTIME Primary Care Provider: Isabel Arias Referrals: Isabel Arias, [facility] [Primary Care Provider] - 3-5 Days Disposition Disposition: Home, Self Care
[2022-09-07] MEDS: 0.9% Normal Saline 1,000 ML 1000 ML IV (02:15)
[2022-09-07 02:53] LABS: Absolute Lymphocyte Count 4.36 X10^3/uL (0.83-4.51); Absolute Neutrophil Count 6.5 X10^3/uL (2.0-7.7); Basophil% 0.8 % (0-1); Eosinophil# 0.32 X10^3/uL; Eosinophils% 2.6 % (0-5); Hematocrit 42.3 % (37-47); Hemoglobin 13.5 g/dL (12.0-15.0); Lymphocyte # 4.36 X10^3/ul (0.83-4.51); Mean Corp Hgb Conc 31.9 g/dL (32-36); Mean Corpuscular Hgb 30.1 pg (27.0-32.0); Mean Corpuscular Volume 94.2 fL (81-99); Mean Platelet Vol. 11.3 fl (6.2-12.0); Monocyte# 0.65 X10^3/uL; Monocyte% 5.4 % (0-10); NRBC Flagged by Analyzer 0 % (0-5); Neutrophil # 6.46 X10^3/uL (2.7-7.7); Neutrophil % 53.3 % (47-70); Platelet Count 287 K/mm3 (150-450); RBC Distribution Width CV 13.8 % (11.6-14.6); RBC Distribution Width SD 47.4 fl (35.1-43.9); Red Blood Count 4.49 M/mm3 (4.2-5.4); White Blood Count 12.1 K/mm3 (4.4-11.0)
[2022-09-07 03:06] LABS: Alcohol, Blood (Medical)-Serum < 3.0 mg/dL
[2022-09-07 03:07] LABS: Anion Gap 4 (5-15); BUN 15 mg/dL (7-18); BUN/Creat Ratio 13.6 RATIO (10-20); Chloride 105 mmol/L (98-107); EST Glomerular Filtration Rate 58 mL/min (>60); Est Glom Filt Rate - Afr Amer 70 mL/min (>60); Estimated Creatinine Clearance 49.76 ml/min; Glucose 139 mg/dL (74-106); Potassium 4.1 mmol/L (3.5-5.1); Sodium Level 139 mmol/L (136-145)
[2022-09-07 03:37] LABS: Amphetamine Urine VISTA NEGATIVE (<1000 ng/mL); Barbiturate Urine VISTA NEGATIVE (< 200 ng/mL); Benzodiazepine Urine VISTA NEGATIVE (< 200 ng/mL); Cocaine Urine VISTA NEGATIVE (< 300 ng/mL); Ecstacy Urine VISTA NEGATIVE (< 500 ng/mL); Methadone Urine VISTA NEGATIVE (< 300 ng/mL); PCP Urine VISTA NEGATIVE (< 25 ng/mL); THC Urine VISTA NEGATIVE (< 50 ng/mL); Vista UDS pH Range 4
[2022-09-07 03:59] VITALS: BP 106/62; PULSE 67; RESP 12; O2SAT 97
== END 2022-09-07 04:09 | disposition home or self-care (01) ==
PROVIDERS: Emergency Provider Emergency Medicine; PCP Physician Assistant; Visit Provider Emergency Medicine
DX: R55 Syncope and collapse (principal); F31.9 Bipolar disorder, unspecified; F17.210 Nicotine dependence, cigarettes, uncomplicated; E78.5 Hyperlipidemia, unspecified; R51.9 Headache, unspecified; G89.29 Other chronic pain; Z85.42 Personal history of malignant neoplasm of other parts of uterus; R94.31 Abnormal electrocardiogram [ECG] [EKG]
CPT/HCPCS: 70450; 80048; 80307; 82077; 85025; 93005; 99285

== ENCOUNTER 2022-11-18 09:48 | Emergency (ER) | payer MEDICAID, SELFPAY ==
[2022-11-18 09:50] VITALS: BP 111/76; PULSE 97; RESP 14; TEMP 36.5; O2SAT 96; BMI 39.9
--- NOTE | 2022-11-18 09:59 | CT_ITS ---
STUDY: CT ABDOMEN AND PELVIS WITHOUT CONTRAST REASON FOR EXAM: Female, 42 years old. 2 week history of right-sided abdominal pain. RADIATION DOSAGE (If Supplied By Facility): CTDIvol = ( 22.14 ) mGy, DLP = ( 1167.29 ) mGycm TECHNIQUE: Transaxial images were obtained from the dome of the diaphragm to the symphysis pubis without oral contrast, and without intravenous contrast. Sagittal and coronal images were reconstructed. Individualized dose optimization techniques were used for this CT. COMPARISON: None. FINDINGS: The visualized lung bases are unremarkable. The visualized portions of the heart are within normal limits. Scattered hepatic cysts. Largest cyst in the left lobe of the liver and measures 3.7 cm by 2.9 cm. There are surgical clips in the gallbladder fossa consistent with a prior cholecystectomy. Normal spleen. Normal pancreas. Normal bilateral adrenal glands. Normal right kidney. Normal left kidney. Normal visualized stomach. Normal small intestine. Normal colon. The appendix is visualized and appears normal. Normal abdominal aorta. Normal inferior vena cava. Normal retroperitoneum. Normal urinary bladder. There is absence of the uterus consistent with a prior hysterectomy. There is a small umbilical hernia containing fat. Normal osseous structures. CT/Abdomen/Pelvis without Cont IMPRESSION: Stable hepatic cysts. Status post cholecystectomy. Electronically Signed: Genaro Hines MD at 11:50 EST ,
--- NOTE | 2022-11-18 10:00 | ED.VIS.GI ---
HPI HPI - GI History of Present Illness Chief Complaint: Abd Pain Narrative Narrative: 42-year-old female past medical history of hyperlipidemia presents with abdominal bloating and right-sided abdominal pain that she has had for the last 2 weeks. She states that she is having normal bowel movements and still flatulent. Past surgical and history does include hysterectomy, cholecystectomy, and ovary surgeries. She has had remote bowel obstruction she states 20 years ago. She is progressively been having abdominal bloating along with pain on her right side. She states that she is post to see a new primary care provider in a week or 2 at least, but called her current primary care provider and was told to come to the emergency department for evaluation. She states over the last day she has been vomiting a few times, nonbloody, but more acidy. [facility] Medical History Bipolar disorder Chronic pain History of renal calculi History of uterine cancer (2006) Hyperlipidemia Incomplete right bundle branch block Lung nodule Migraine Obesity Ovarian cyst Pancreatitis Right tubo-ovarian mass Ureteral stone with hydronephrosis Home Medications prazosin 1 mg capsule 1 mg PO QHS 03/26/20 [History Last Taken Unknown] gabapentin 400 mg capsule 800 mg PO TID 10/03/20 [History Last Taken Unknown] hydroxyzine HCl 50 mg tablet 50 mg PO QHS 10/03/20 [History Last Taken Unknown] omeprazole magnesium 20 mg tablet,delayed release 20 mg PO DAILY 10/03/20 [History Last Taken Unknown] buspirone 10 mg tablet 10 mg PO BID 11/19/20 [History Last Taken Unknown] paroxetine HCl 10 mg tablet 10 mg PO DAILY 02/27/21 [History Last Taken Unknown] baclofen 10 mg tablet 10 mg PO DAILY 06/14/21 [History Last Taken Unknown] hydrocodone-acetaminophen 5-325mg 5mg-325mg 1 tab PO Q6H PRN pain 3 days #10 tabs 06/14/21 [Rx Last Taken Unknown] promethazine 25 mg tablet 25 mg PO TID PRN nausea and vomiting #14 tabs 06/14/21 [Rx Last Taken Unknown] sucralfate 1 gram tablet (Carafate) 1 g PO BID 06/14/21 [History Last Taken Unknown] dicyclomine 20 mg tablet 20 mg PO BID #10 tabs 04/10/22 [Rx Last Taken Unknown] ondansetron 4 mg disintegrating tablet 4 mg PO Q8H PRN nausea and vomiting #10 tabs 04/10/22 [Rx Last Taken Unknown] doxycycline monohydrate 100 mg capsule 100 mg PO BID #9 CAPSULES 07/29/22 [Rx Last Taken Unknown] estradiol 0.5 mg tablet 0.5 mg PO DAILY 09/07/22 [History Last Taken Unknown] quetiapine 50 mg tablet 50 mg PO QHS 09/07/22 [History Last Taken Unknown] Allergy/AdvReac Type Severity Reaction Status Date / Time Iodinated Contrast Media [CT] Allergy Anaphylaxis Verified 11/18/22 09:52 ketorolac tromethamine Allergy Rash Verified 11/18/22 09:52 [From Toradol] metronidazole [From Flagyl] Allergy Hives Verified 11/18/22 09:52 Penicillins Allergy Hives Verified 11/18/22 09:52 aspirin AdvReac Upset Verified 11/18/22 09:52 Stomach IV contrast Allergy Anaphylaxis Uncoded 11/18/22 09:52 Family History Aunt Breast cancer Grandfather CAD (coronary artery disease) Father Heart disease, Onset Age: 73 Triple bypass Mother Heart disease, Onset Age: 62 Other Diabetes Surgical History H/O ovarian cystectomy (09/2019) History of bilateral oophorectomy History of hysterectomy History of tubal ligation Social History household members: none Smoking Status: Current every day smoker tobacco type: cigarettes Tobacco: How many years used: 15 substance use type: does not use ROS ROS ED ROS Narrative Constitutional: No fever, no chills. HEENT: No sore throat. No neck pain. No loss of vision. No rhinorrhea. Cardiovascular: No chest pain. No palpitations. No pedal edema. Respiratory: No cough, no shortness of breath. Abdominal: Abdominal bloating and right-sided abdominal pain. Nausea and vomiting starting yesterday. No diarrhea. No constipation. Genitourinary: No dysuria. No hematuria. Musculoskeletal: No myalgias. No arthralgias. Neurologic: No headaches. No dizziness. No lightheadedness. Skin: No rash. No change in color. Psychiatric: No depression. No anxiety. EXAM Physical Exam Narrative Exam Narrative: Afebrile. Vital signs noted. HEENT: Normocephalic. Atraumatic. PERRL, EOMI. Neck soft and supple. No point tenderness or step off. Cardiovascular: Regular rate and rhythm. No murmurs, rubs, or gallops appreciated. Respiratory: No tachypnea. Lungs clear to auscultation bilaterally. Gastrointestinal: Abdomen soft, mildly protuberant, with normoactive bowel sounds. Mild tenderness along right flank. No rebound or guarding. Neurological: Awake. Alert. Nonfocal, nonlateralizing. Skin: No rash. Normal color. No pallor. Musculoskeletal: No pedal edema. Full range of motion extremities. Const Vital Signs: 11/18/22 09:50 Temperature 97.7 F L Temperature Source Temporal Pulse Rate 97 Respiratory Rate 14 Blood Pressure 111/76 Blood Pressure Mean 87 Pulse Ox 96 Oxygen Delivery Method Room Air MDM MDM MDM Narrative Medical decision making narrative: Suspicion is lower for bowel obstruction as the patient is still having bowel movements and flatulence. However, given her past surgical history and previous bowel obstruction, comprehensive work-up was pursued. I did review her ED care plan. Additionally, she has an allergy to IV contrast of anaphylaxis so I will perform a CT scan without contrast even to look for ureteral stone as she is having right flank pain. I did review her care plan. I reviewed her laboratory work, she has a normal white count of 8.1, hemoglobin slightly low at 11.9, platelet count normal at 223. CMP shows a creatinine of 1.07. AST and ALT were reviewed and grossly unremarkable, AST slightly low at 1 with a normal ALT of 27. Urinalysis is negative for infection. I do not feel antibiotics are indicated. Patient requested something for pain, and I do not feel that narcotic pain medications are indicated. Additionally, she has had problems with chronic abdominal pain and once again I reviewed her care plan. She was administered Tylenol. On my independent review of her CT scan, I see no evidence of an acute obstruction, no dilation of bowel, which I think would explain her reported abdominal bloating. I reviewed the CT report by the radiologist which confirms my independent evaluation and interpretation. At this point in time, I feel she be discharged safely home with follow-up to her primary care provider. Return instructions were reviewed. Disposition is discharged home in stable condition. History & Record Review Discussion w/independent historian: Patient Additional record(s) reviewed:: Prior ED visit and Prior labs Lab Data Attestation: I reviewed the patient's lab results. Labs: Laboratory Results - last 24 hr 11/18/22 11/18/22 11/18/22 10:30 10:30 10:57 WBC 8.1 RBC 4.02 L Hgb 11.9 L Hct 37.2 MCV 92.5 MCH 29.6 MCHC 32.0 RDW Std Deviation 47.9 H RDW Coeff of Shun 14.1 Plt Count 223 MPV 11.2 Immature Gran % (Auto) 1.700 H Neut % (Auto) 58.9 Lymph % (Auto) 29.9 Bleckley % (Auto) 5.8 Eos % (Auto) 3.0 Baso % (Auto) 0.7 Absolute Neuts (auto) 4.8 Absolute Lymphs (auto) 2.42 Nucleated RBC % 0 Sodium 140 Potassium 4.2 Chloride 105 Carbon Dioxide 30.0 Anion Gap 5 BUN 12 Creatinine 1.07 H Estim Creat Clear Calc 51.16 Est GFR (MDRD) Af Amer 72 Est GFR (MDRD) Non-Af 59 L BUN/Creatinine Ratio 11.2 Glucose 110 H Calcium 9.3 Total Bilirubin 0.40 AST 12 L ALT 27 Alkaline Phosphatase 129 H Total Protein 7.5 Albumin 3.6 Globulin 3.9 Albumin/Globulin Ratio 0.9 Lipase 137 Urine Color Yellow Urine Clarity Clear Urine pH 8.0 Ur Specific [place] 1.015 Urine Protein Negative Urine Glucose (UA) Normal Urine Ketones Negative Urine Occult Blood Negative Urine Nitrite Negative Urine Bilirubin Negative Urine Urobilinogen Normal Ur Leukocyte Esterase Negative Urine RBC 0 SEEN Urine WBC 0 SEEN Ur Squamous Epith Cells 25-50 SEEN Urine Bacteria 0 SEEN Urine Mucus 0 SEEN Radiography Diagnostic Testing: Clinical Impression(s) from Imaging Studies Abdomen/Pelvis CT 11/18/22 09:59 IMPRESSION: Stable hepatic cysts. Status post cholecystectomy. Electronically Signed: Genaro Hines MD at 11:50 EST , Discharge Plan Triage Chief Complaint: Abd Pain ED Provider: Stefano Hood Dx/Rx/DC Orders Clinical Impression: Abdominal pain, Abdominal bloating Instructions: ED Abdominal Pain Unkn Cause Fem Prescriptions: No Action buspirone 10 mg tablet 10 mg PO BID prazosin 1 MG capsule 1 mg PO QHS gabapentin 400 MG capsule 800 mg PO TID hydroxyzine HCl 50 MG tablet 50 mg PO QHS omeprazole magnesium 20 MG tablet,delayed release (DR/EC) 20 mg PO DAILY paroxetine HCl 10 mg tablet 10 mg PO DAILY Label Comments: TAKE 1 TABLET BY MOUTH EVERY DAY sucralfate [Carafate] 1 gram Tablet 1 g PO BID baclofen 10 mg tablet 10 mg PO DAILY Label Comments: TAKE 1 TABLET BY MOUTH TWICE A DAY FOR 5 DAYS promethazine 25 mg tablet 25 mg PO TID PRN (Reason: nausea and vomiting) Qty: 14 0RF hydrocodone-acetaminophen 5-325 mg tablet 1 tab PO Q6H PRN (Reason: pain) 3 Days Qty: 10 0RF dicyclomine 20 mg tablet 20 mg PO BID Qty: 10 0RF ondansetron 4 mg tablet,disintegrating 4 mg PO Q8H PRN (Reason: nausea and vomiting) Qty: 10 0RF doxycycline monohydrate 100 mg capsule 100 mg PO BID Qty: 9 0RF estradiol 0.5 mg tablet 0.5 mg PO DAILY Label Comments: TAKE 1 TABLET BY MOUTH EVERY DAY quetiapine 50 mg tablet 50 mg PO QHS Label Comments: TAKE ONE TO TWO TABLETS BY MOUTH AT BEDTIME Primary Care Provider: Isabel Arias Referrals: Isabel Arias PA [Primary Care Provider] - As soon as possible Disposition Disposition: Home, Self Care
--- NOTE | 2022-11-18 10:15 | CM.ED ---
Social Work Note Referral Source: Case find Referral Reason: EDCP SW reviewed patient's chart and provided MD Hood with a copy of patient's Care Plan as it is not visible for him in patient's chart. SW reviewed available if needs arise. Ria Abebe [employer], [employer]
[2022-11-18 10:39] LABS: Absolute Lymphocyte Count 2.42 X10^3/uL (0.83-4.51); Absolute Neutrophil Count 4.8 X10^3/uL (2.0-7.7); Basophil# 0.06 X10^3/uL; Basophil% 0.7 % (0-1); Eosinophil# 0.24 X10^3/uL; Hematocrit 37.2 % (37-47); Hemoglobin 11.9 g/dL (12.0-15.0); Lymphocyte # 2.42 X10^3/ul (0.83-4.51); Lymphocyte % 29.9 % (19-41); Mean Corpuscular Hgb 29.6 pg (27.0-32.0); Mean Corpuscular Volume 92.5 fL (81-99); Mean Platelet Vol. 11.2 fl (6.2-12.0); Monocyte# 0.47 X10^3/uL; Monocyte% 5.8 % (0-10); NRBC Flagged by Analyzer 0 % (0-5); Neutrophil # 4.77 X10^3/uL (2.7-7.7); Neutrophil % 58.9 % (47-70); Platelet Count 223 K/mm3 (150-450); RBC Distribution Width CV 14.1 % (11.6-14.6); RBC Distribution Width SD 47.9 fl (35.1-43.9); Red Blood Count 4.02 M/mm3 (4.2-5.4); White Blood Count 8.1 K/mm3 (4.4-11.0)
[2022-11-18 10:55] LABS: ALB/GLOB Ratio 0.9 RATIO (0.9-2.4); AST(SGOT) 12 U/L (15-37); Alanine Aminotransfer ALT/SGPT 27 U/L (13-56); Albumin, Serum 3.6 g/dL (3.2-5.0); Alkaline Phosphatase 129 U/L (45-117); Anion Gap 5 (5-15); BUN 12 mg/dL (7-18); BUN/Creat Ratio 11.2 RATIO (10-20); Calcium,Total 9.3 mg/dL (8.5-10.1); Chloride 105 mmol/L (98-107); Creatinine, Serum 1.07 mg/dL (0.55-1.02); EST Glomerular Filtration Rate 59 mL/min (>60); Est Glom Filt Rate - Afr Amer 72 mL/min (>60); Estimated Creatinine Clearance 51.16 ml/min; Globulin 3.9 g/dL (2.2-4.2); Glucose 110 mg/dL (74-106); Lipase 137 U/L (73-393); Potassium 4.2 mmol/L (3.5-5.1); Protein, Total 7.5 g/dL (6.4-8.2); Sodium Level 140 mmol/L (136-145)
[2022-11-18 10:58] LABS: Bacteria 0 SEEN /hpf (None Seen); Mucous, Urine 0 SEEN /hpf (<or=2+); Red Blood Cells-Urine 0 SEEN /hpf (0-5); White Blood Cells 0 SEEN /hpf (0-5)
[2022-11-18] MEDS: Ondansetron 4 MG/2 ML Vial IV (10:58)
[2022-11-18] MEDS: 0.9% Normal Saline 1,000 ML 125 ML IV (10:58)
[2022-11-18 11:01] LABS: Color, Urine Yellow (Yellow); Glucose, Dipstick Normal (Normal); Ketone-Dipstick Negative (Negative); Leukocyte Esterase-Dipstick Negative /ul (Negative); Nitrite-Dipstick Negative (Negative); Occult Blood-Urine Negative /ul (Negative); Protein-Dipstick Negative (Negative); Specific Gravity, Urine 1.015 (1.002-1.030); Urine Bilirubin Dipstick Negative (Negative); Urine Clarity Clear (Clear); Urine Urobilinogen Normal (Normal)
[2022-11-18 11:21] LABS: Squamous Epithelial Cells - UA 25-50 SEEN /hpf (5-10)
--- NOTE | 2022-11-18 11:28 | ED.RN ---
PT REFUSED TYLENOL. PHYSICIAN AWARE
[2022-11-18 13:00] VITALS: BP 104/78; PULSE 62; RESP 16; O2SAT 99
== END 2022-11-18 13:02 | disposition home or self-care (01) ==
PROVIDERS: Emergency Provider Emergency Medicine; PCP Physician Assistant; Visit Provider Emergency Medicine
DX: R10.9 Unspecified abdominal pain (principal); F17.210 Nicotine dependence, cigarettes, uncomplicated; R14.0 Abdominal distension (gaseous); E78.5 Hyperlipidemia, unspecified; R11.10 Vomiting, unspecified
CPT/HCPCS: 74176; 80053; 81001; 83690; 85025; 96361; 96374; 99285; J7030; J2405

== ENCOUNTER 2023-02-09 19:24 | Emergency (ER) | payer MEDICAID, SELFPAY ==
[2023-02-09 19:25] VITALS: BP 142/81; PULSE 81; RESP 18; TEMP 36.3; O2SAT 93; BMI 43.0
[2023-02-09 19:31] VITALS: BP 130/57; PULSE 83; RESP 18; O2SAT 93
[2023-02-09 19:34] VITALS: TEMP 36.3; O2SAT 98
--- NOTE | 2023-02-09 20:09 | CT_ITS ---
INDICATION: Injury/Pain EXAMINATION: CT Head or Brain W/O Contrast Injection TECHNIQUE: Multiple axial images were obtained of the head without intravenous contrast. A radiation dose optimization technique was used for this scan. IV Contrast dosage and agent: None. COMPARISON: Head CT from 09/07/2022 FINDINGS: BRAIN PARENCHYMA: No intra- or extra-axial hemorrhage. No evidence of acute major territorial infarct. No intracranial mass or mass effect. There is preservation of the orozco/white matter interface. Posterior fossa structures are unremarkable. CSF SPACES: Appropriate for age. No hydrocephalus. Basal cisterns are patent. CALVARIUM, SKULL BASE, PARANASAL SINUSES AND MASTOID AIR CELLS: Calvarium is intact. No acute findings within paranasal sinuses. Mastoid air cells are well-pneumatized. ORBITS: No acute findings. CT/Brain/Head without Contrast IMPRESSION: No evidence of acute intracranial abnormality. Electronically Signed: Eduar Reno MD at 20:59 EDT ,
--- NOTE | 2023-02-09 20:10 | CT_ITS ---
INDICATION: Injury/Pain EXAMINATION: CT Spine Cervical W/O Contrast Injection TECHNIQUE: Helically acquired images were obtained of the cervical spine. 2D reformatted images were reviewed. A radiation dose optimization technique was used for this scan. IV Contrast dosage and agent: None. COMPARISON: None. FINDINGS: VERTEBRAE: No fracture or traumatic subluxation. No suspicious osseous lesion identified. Adequate alignment. Vertebral body heights are preserved. DISCS and SPINAL CANAL: Disc heights are preserved. No significant spinal canal stenosis. NECK SOFT TISSUES: No prevertebral soft tissue swelling. No other acute findings. LUNG APICES: No acute findings. CT/Spine Cervical without Contras IMPRESSION: No evidence of acute cervical spinal injury. Electronically Signed: Eduar Reno MD at 21:00 EDT ,
--- NOTE | 2023-02-09 20:26 | ED.RN ---
DR. VALLADARES VERBAL ORDER TO NOT GIVE MORPHINE/ DISCONTINUE DUE TO PT RECEIVING FENTANYL IN SQUAD.
--- NOTE | 2023-02-09 20:40 | RAD_ITS ---
INDICATION: Injury/Pain EXAMINATION/TECHNIQUE: X-RAY - RIGHT XR Shoulder Min 2 Views COMPARISON: None. FINDINGS: SOFT TISSUES: No significant soft tissue swelling. No radiopaque foreign body detected. BONES/JOINTS: No acute fracture or subluxation. Normal alignment. Preservation of the joint space(s). No suspicious osseous lesion observed. RAD/Shoulder min 2 Views IMPRESSION: Negative right shoulder. Electronically Signed: Eduar Reno MD at 21:32 EDT ,
--- NOTE | 2023-02-09 20:40 | RAD_ITS ---
INDICATION: Injury/Pain EXAMINATION/TECHNIQUE: X-RAY - RIGHT XR Elbow Min 3 Views COMPARISON: None. FINDINGS: SOFT TISSUES: No significant soft tissue swelling or pathologic joint effusion. No radiopaque foreign body detected. BONES/JOINTS: No acute fracture or subluxation. Normal alignment. Preservation of the joint space(s). No suspicious osseous lesion observed. RAD/Elbow min 3 Views IMPRESSION: Negative right elbow. Electronically Signed: Eduar Reno MD at 21:26 EDT ,
--- NOTE | 2023-02-09 20:40 | RAD_ITS ---
INDICATION: Injury/Pain EXAMINATION/TECHNIQUE: X-RAY - RIGHT XR Wrist Min 3 Views COMPARISON: None. FINDINGS: SOFT TISSUES: No significant soft tissue swelling. No radiopaque foreign body detected. BONES/JOINTS: No acute fracture or subluxation. Normal alignment. Preservation of the joint space(s). No suspicious osseous lesion observed. RAD/Wrist min 3 Views IMPRESSION: Negative right wrist. Electronically Signed: Eduar Reno MD at 21:27 EDT ,
--- NOTE | 2023-02-09 20:40 | RAD_ITS ---
INDICATION: Injury/Pain EXAMINATION/TECHNIQUE: X-RAY - RIGHT XR Ankle Min 3 Views COMPARISON: None. FINDINGS: SOFT TISSUES: No significant soft tissue swelling. No radiopaque foreign body detected. BONES/JOINTS: No acute fracture or subluxation. Normal alignment. Preservation of the joint space(s). Small posterior calcaneal enthesophyte. RAD/Ankle min 3 Views IMPRESSION: No significant injury Mild calcaneal spurring Electronically Signed: Eduar Reno MD at 21:25 EDT ,
[2023-02-09 20:55] VITALS: BP 137/75; PULSE 67; RESP 14; O2SAT 97
--- NOTE | 2023-02-09 22:10 | EDS_ITS ---
HPI History of Present Illness Chief Complaint: Syncope Informant: patient Onset/Context/Timing Onset: Today Context: Sudden Onset Timing: Continuous Quality: Burning, aching Location: Head, neck, right shoulder, right elbow, right wrist, and right ankle Worsened by: Movement Relieved by: Nothing Narrative Narrative: Patient presents with a syncopal episode that occurred today. Patient states that she got lightheaded and passed out. Patient states she fell onto her right side. Patient complains of pain in the right side of her head, neck, right shoulder, right elbow, and right wrist. Patient also complains of pain in her right ankle. Patient denies any palpitations prior to passing out. Patient states she has passed out multiple times in the past. Patient denies any shortness of breath. Patient admits to some nausea but denies any vomiting. [facility] Medical History Bipolar disorder Chronic pain History of renal calculi History of uterine cancer (2006) Hyperlipidemia Incomplete right bundle branch block Lung nodule Migraine Obesity Ovarian cyst Pancreatitis Right tubo-ovarian mass Ureteral stone with hydronephrosis Home Medications prazosin 1 mg capsule 1 mg PO QHS 03/26/20 [History Last Taken Unknown] gabapentin 400 mg capsule 800 mg PO TID 10/03/20 [History Last Taken Unknown] hydroxyzine HCl 50 mg tablet 50 mg PO QHS 10/03/20 [History Last Taken Unknown] omeprazole magnesium 20 mg tablet,delayed release 20 mg PO DAILY 10/03/20 [History Last Taken Unknown] buspirone 10 mg tablet 10 mg PO BID 11/19/20 [History Last Taken Unknown] paroxetine HCl 10 mg tablet 10 mg PO DAILY 02/27/21 [History Last Taken Unknown] baclofen 10 mg tablet 10 mg PO DAILY 06/14/21 [History Last Taken Unknown] hydrocodone-acetaminophen 5-325mg 5mg-325mg 1 tab PO Q6H PRN pain 3 days #10 tabs 06/14/21 [Rx Last Taken Unknown] promethazine 25 mg tablet 25 mg PO TID PRN nausea and vomiting #14 tabs 06/14/21 [Rx Last Taken Unknown] sucralfate 1 gram tablet (Carafate) 1 g PO BID 06/14/21 [History Last Taken Unknown] dicyclomine 20 mg tablet 20 mg PO BID #10 tabs 07/28/22 [Rx Last Taken Unknown] ondansetron 4 mg disintegrating tablet 4 mg PO Q8H PRN nausea and vomiting #10 tabs 04/10/22 [Rx Last Taken Unknown] doxycycline monohydrate 100 mg capsule 100 mg PO BID #9 CAPSULES 07/29/22 [Rx Last Taken Unknown] estradiol 0.5 mg tablet 0.5 mg PO DAILY 09/07/22 [History Last Taken Unknown] quetiapine 50 mg tablet 50 mg PO QHS 09/07/22 [History Last Taken Unknown] Allergy/AdvReac Type Severity Reaction Status Date / Time Iodinated Contrast Media [CT] Allergy Anaphylaxis Verified 02/09/23 19:31 ketorolac tromethamine Allergy Rash Verified 02/09/23 19:31 [From Toradol] metronidazole [From Flagyl] Allergy Hives Verified 02/09/23 19:31 Penicillins Allergy Hives Verified 02/09/23 19:31 aspirin AdvReac Upset Verified 02/09/23 19:31 Stomach Family History Aunt Breast cancer Grandfather CAD (coronary artery disease) Father Heart disease, Onset Age: 73 Triple bypass Mother Heart disease, Onset Age: 62 Other Diabetes Surgical History H/O ovarian cystectomy (09/2019) History of bilateral oophorectomy History of hysterectomy History of tubal ligation Social History household members: none Smoking Status: Current every day smoker tobacco type: cigarettes Tobacco: How many years used: 15 substance use type: does not use ROS ROS ED Constitutional Constitutional ED: Denies chills or fever(s) Eyes Eyes: Denies blurry vision or change in vision ENT ENT ED: Denies rhinorrhea or sore throat Cardiovascular Cardiovascular: Denies chest pain or palpitations Respiratory/Chest Respiratory/Chest: Denies cough or dyspnea Gastrointestinal Gastrointestinal: Reports nausea; Denies vomiting Genitourinary Genitourinary ED: Denies dysuria or hematuria Musculoskeletal Musculoskeletal: Reports back pain and neck pain Integumentary Denies abscess or rash Neurologic Neurologic: Reports headache(s); Denies weakness Allergic/Immunologic Allergic/Immunologic ED: Denies mouth swelling or urticaria EXAM Physical Exam Const Vital Signs: 02/09/23 19:25 02/09/23 19:31 02/09/23 19:34 Temperature 97.3 F L 97.3 F L Temperature Source Temporal Pulse Rate 81 83 Respiratory Rate 18 18 Respiratory Effort Normal Non-Labored Respiratory Depth Normal Respiratory Pattern Normal Blood Pressure 142/81 H 130/57 H Blood Pressure Mean 101 81 Pulse Ox 93 93 98 Oxygen Delivery Method Room Air Room Air Room Air 02/09/23 20:55 Temperature Temperature Source Pulse Rate 67 Respiratory Rate 14 Respiratory Effort Respiratory Depth Respiratory Pattern Blood Pressure 137/75 H Blood Pressure Mean 95 Pulse Ox 97 Oxygen Delivery Method Room Air Positive well nourished and well developed General Appearance ED: well developed and NAD HEENT Reports moist mucous membranes HEENT Narrative: There is tenderness over the right side of the scalp. There is no bony crepitance or step-off. There is no edema or ecchymosis. Neck supple Neck Narrative: There is tenderness over the right cervical paraspinal muscles. There is no midline tenderness. There is no bony crepitance or step-off. Cervical collar is in place. Chest Wall inspection of chest normal and palpation of chest normal Resp normal respiratory effort and clear to auscultation bilaterally Cardio regular rate and regular rhythm GI normal to inspection, nondistended, normoactive bowel sounds and non-tender Palpation: soft Extremity Extremity Narrative: There is tenderness over the right shoulder, right elbow, right wrist, and right ankle. There is no edema or ecchymosis. There is no deformity noted. There is a superficial abrasion over the dorsum of the right foot. There is no bleeding. Range of motion was limited in all motions of the right upper extremity and right ankle secondary to pain. Radial pulses are equal bilateral. Pedal pulses are equal bilaterally. Strength is 5/5 bilateral in the upper and lower extremities. There are no sensory deficits noted. Neuro oriented x3, CN's II-XII intact bilaterally and no sensory deficits noted Sensorium / Orientation: alert Motor Exam: strength 5/5 throughout Skin Trauma: abrasion MDM MDM MDM Narrative Medical decision making narrative: Differential diagnosis includes vasovagal syncope, medication side effect, anxiety, closed head injury, cervical spine fracture, right shoulder dislocation, right shoulder fracture, right elbow fracture, right wrist fracture, right ankle fracture, and soft tissue contusions. CT scan of the brain will be obtained to assess for intracranial bleeding. CT scan of the cervical spine will be obtained to assess for cervical spine fracture and dislocation. X-rays of the right shoulder will be obtained to assess for fracture and dislocation. X-rays of the right elbow will be obtained to assess for occult fracture. X-rays of the right wrist will be obtained to assess for fracture. X-rays of the right ankle will be obtained to assess for fracture. Radiography Diagnostic Testing: Clinical Impression(s) from Imaging Studies Brain CT 02/09/23 20:09 IMPRESSION: No evidence of acute intracranial abnormality. Electronically Signed: Eduar Reno MD at 20:59 EDT , Cervical Spine CT 02/09/23 20:10 IMPRESSION: No evidence of acute cervical spinal injury. Electronically Signed: Edura Reno MD at 21:00 EDT , Ankle X-Ray 02/09/23 20:40 IMPRESSION: No significant injury Mild calcaneal spurring Electronically Signed: Eduar Reno MD at 21:25 EDT , Elbow X-Ray 02/09/23 20:40 IMPRESSION: Negative right elbow. Electronically Signed: Eduar Reno MD at 21:26 EDT , Shoulder X-Ray 02/09/23 20:40 IMPRESSION: Negative right shoulder. Electronically Signed: Eduar Reno MD at 21:32 EDT , Wrist X-Ray 02/09/23 20:40 IMPRESSION: Negative right wrist. Electronically Signed: Eduar Reno MD at 21:27 EDT , CT scan of the brain was obtained. There is no acute intracranial abnormality. This was interpreted by the radiologist and was also independently reviewed by myself. CT scan of the cervical spine was obtained. There is no acute fracture or spondylolisthesis. This was interpreted by the radiologist and was also independently reviewed by myself. X-rays of the right shoulder were obtained. There are 3 views. On my independent interpretation, there is no acute fracture. There is no dislocation. There is no soft tissue swelling. Radiologist also interpreted the x-rays and agrees. X-rays of the right elbow were obtained. There are 3 views. On my independent interpretation, there is no acute fracture. There is no dislocation. There is no soft tissue swelling. Radiologist also interpreted the x-rays and agrees. X-rays of the right wrist were obtained. There are 3 views. On my independent interpretation, there is no acute fracture. There is no dislocation. There is no soft tissue swelling. Radiologist also interpreted the x-rays and agrees. X-rays of the right ankle were obtained. There are 3 views. On my independent interpretation, there is no acute fracture. There is no dislocation. There is no soft tissue swelling. Radiologist also interpreted the x-rays and agrees. Treatment and Re-Evaluation :: Patient was initially ordered morphine. However, the nurse informed me that the patient does have a care plan which includes no opiate pain medication for now verifiable pain. Therefore, this was held. Patient had the cervical collar removed. Patient was advised of her findings. Patient was instructed to take Tylenol as needed for pain. Patient was instructed to use ice to the areas. Patient was instructed to follow-up with her primary care physician in 5 to 7 days for. Patient understood and was agreeable with the plan. All questions were answered. Discharge Plan Triage Chief Complaint: Syncope ED Provider: Ran Torres Dx/Rx/DC Orders Clinical Impression: Syncope, Sprain of right ankle, Contusion of right shoulder region, Contusion of right elbow, Acute cervical myofascial strain Instructions: ED Soft Tissue Contusion, ED Neck Sprain or Strain, ED Fainting, Uncertain Cause Prescriptions: No Action buspirone 10 mg tablet 10 mg PO BID prazosin 1 MG capsule 1 mg PO QHS gabapentin 400 MG capsule 800 mg PO TID hydroxyzine HCl 50 MG tablet 50 mg PO QHS omeprazole magnesium 20 MG tablet,delayed release (DR/EC) 20 mg PO DAILY paroxetine HCl 10 mg tablet 10 mg PO DAILY Label Comments: TAKE 1 TABLET BY MOUTH EVERY DAY sucralfate [Carafate] 1 gram Tablet 1 g PO BID baclofen 10 mg tablet 10 mg PO DAILY Label Comments: TAKE 1 TABLET BY MOUTH TWICE A DAY FOR 5 DAYS promethazine 25 mg tablet 25 mg PO TID PRN (Reason: nausea and vomiting) Qty: 14 0RF hydrocodone-acetaminophen 5-325 mg tablet 1 tab PO Q6H PRN (Reason: pain) 3 Days Qty: 10 0RF dicyclomine 20 mg tablet 20 mg PO BID Qty: 10 0RF ondansetron 4 mg tablet,disintegrating 4 mg PO Q8H PRN (Reason: nausea and vomiting) Qty: 10 0RF doxycycline monohydrate 100 mg capsule 100 mg PO BID Qty: 9 0RF estradiol 0.5 mg tablet 0.5 mg PO DAILY Label Comments: TAKE 1 TABLET BY MOUTH EVERY DAY quetiapine 50 mg tablet 50 mg PO QHS Label Comments: TAKE ONE TO TWO TABLETS BY MOUTH AT BEDTIME Primary Care Provider: Isabel Arias Referrals: Isabel Arias PA [Primary Care Provider] - 5-7 Days Disposition Disposition: Home, Self Care
[2023-02-09 22:58] VITALS: BP 153/93; PULSE 66; RESP 18; O2SAT 96
== END 2023-02-09 22:59 | disposition home or self-care (01) ==
PROVIDERS: Emergency Provider Emergency Medicine; PCP Physician Assistant; Referring Provider Emergency Medicine; Visit Provider Emergency Medicine
DX: R55 Syncope and collapse (principal); F31.9 Bipolar disorder, unspecified; S16.1XXA Strain of muscle, fascia and tendon at neck level, initial encounter; S40.011A Contusion of right shoulder, initial encounter; F17.210 Nicotine dependence, cigarettes, uncomplicated; S50.01XA Contusion of right elbow, initial encounter; S93.401A Sprain of unspecified ligament of right ankle, initial encounter; E78.5 Hyperlipidemia, unspecified; Z79.899 Other long term (current) drug therapy; W19.XXXA Unspecified fall, initial encounter
CPT/HCPCS: 70450; 72125; 73030; 73080; 73110; 73610; 99284

== ENCOUNTER 2023-02-10 14:33 | Emergency (ER) | payer MEDICAID, SELFPAY ==
[2023-02-10 14:35] VITALS: BP 146/85; PULSE 77; RESP 18; TEMP 35.7; O2SAT 98; BMI 40.6
[2023-02-10 15:25] LABS: Mucous, Urine 0 SEEN /hpf (<or=2+); Red Blood Cells-Urine 0 SEEN /hpf (0-5); White Blood Cells 0 SEEN /hpf (0-5)
[2023-02-10 15:37] LABS: Absolute Lymphocyte Count 2.82 X10^3/uL (0.83-4.51); Absolute Neutrophil Count 5.7 X10^3/uL (2.0-7.7); Basophil# 0.07 X10^3/uL; Basophil% 0.7 % (0-1); Eosinophil# 0.23 X10^3/uL; Eosinophils% 2.4 % (0-5); Hematocrit 40.3 % (37-47); Hemoglobin 12.9 g/dL (12.0-15.0); Lymphocyte # 2.82 X10^3/ul (0.83-4.51); Lymphocyte % 29.9 % (19-41); Mean Corpuscular Hgb 29.5 pg (27.0-32.0); Mean Platelet Vol. 10.7 fl (6.2-12.0); Monocyte% 5.3 % (0-10); NRBC Flagged by Analyzer 0 % (0-5); Neutrophil # 5.68 X10^3/uL (2.7-7.7); Neutrophil % 60.2 % (47-70); Platelet Count 244 K/mm3 (150-450); RBC Distribution Width CV 13.6 % (11.6-14.6); RBC Distribution Width SD 45.7 fl (35.1-43.9); Red Blood Count 4.38 M/mm3 (4.2-5.4); White Blood Count 9.4 K/mm3 (4.4-11.0)
[2023-02-10] MEDS: 0.9% Normal Saline 1,000 ML 250 ML IV (15:38)
[2023-02-10 15:41] LABS: Color, Urine Yellow (Yellow); Glucose, Dipstick Normal (Normal); Ketone-Dipstick Negative (Negative); Leukocyte Esterase-Dipstick Negative /ul (Negative); Nitrite-Dipstick Negative (Negative); Occult Blood-Urine Negative /ul (Negative); Protein-Dipstick Negative (Negative); Specific Gravity, Urine 1.015 (1.002-1.030); Urine Bilirubin Dipstick Negative (Negative); Urine Clarity Sl. Cloudy (Clear); Urine Urobilinogen Normal (Normal); Urine pH 6.5 (5.0 - 8.0)
--- NOTE | 2023-02-10 15:42 | EX.ED.DYSGE1 ---
HPI History of Present Illness Chief Complaint: Weakness Narrative Narrative: Patient is a 42-year-old female who is presenting to the ER today with chief complaint of diffuse pain. Patient has mild headache, mild neck pain, soreness and stiffness. Patient stated that she had a syncopal episode last evening, she fell face forward against the cement. Patient was seen evaluated last evening. Patient had a CT of the head, cervical spine. Patient had multiple x-rays done as well. Patient was sent home with no medications to help with her symptoms at home. Patient cannot take anti-inflammatories, but she has had Toradol in the past and had no reaction. Patient took 2 extra strength Tylenol prior to arrival. Patient's had nausea this morning no vomiting. Patient states she overall feels weak and also has been having intermittent dizziness and vertigo as well this morning. Patient has mild vertigo at this time. Patient has no chest pain or shortness of breath. Patient has some vague right lateral abdominal wall pain. Patient does not have her appendix, she does have her gallbladder. Patient has a hysterectomy. Patient lives at home with her boyfriend, she has no job. Patient has no new falls, no new syncopal episodes today. Patient came in by EMS secondary to generalized weakness and pain. Patient initially told me that when she came in last evening, she was given IV fentanyl by EMS and then given morphine in the ER last night because of headache. Patient was corrected by nurse MILADYS BANUELOS at bedside, patient was not given morphine because she has a care plan that she is not to receive narcotics. Patient then said yes, maybe I got that morphine dose in [place] previously patient has no new extremity complaint. No acute bowel or bladder changes, no other acute complaints [facility] Medical History Bipolar disorder Chronic pain History of renal calculi History of uterine cancer (2006) Hyperlipidemia Incomplete right bundle branch block Lung nodule Migraine Obesity Ovarian cyst Pancreatitis Right tubo-ovarian mass Ureteral stone with hydronephrosis Home Medications prazosin 1 mg capsule 1 mg PO QHS 03/26/20 [History Last Taken Unknown] gabapentin 400 mg capsule 800 mg PO TID 10/03/20 [History Last Taken Unknown] hydroxyzine HCl 50 mg tablet 50 mg PO QHS 10/03/20 [History Last Taken Unknown] omeprazole magnesium 20 mg tablet,delayed release 20 mg PO DAILY 10/03/20 [History Last Taken Unknown] promethazine 25 mg tablet 25 mg PO TID PRN nausea and vomiting #14 tabs 06/14/21 [Rx Last Taken Unknown] ondansetron 4 mg disintegrating tablet 4 mg PO Q8H PRN nausea and vomiting #10 tabs 04/10/22 [Rx Last Taken Unknown] quetiapine 50 mg tablet 50 mg PO QHS 09/07/22 [History Last Taken Unknown] lorazepam 1 mg tablet (Ativan) 1 mg PO DAILY 02/10/23 [History Last Taken Unknown] Allergy/AdvReac Type Severity Reaction Status Date / Time Iodinated Contrast Media [CT] Allergy Anaphylaxis Verified 02/09/23 19:31 ketorolac tromethamine Allergy Rash Verified 02/09/23 19:31 [From Toradol] metronidazole [From Flagyl] Allergy Hives Verified 02/09/23 19:31 Penicillins Allergy Hives Verified 02/09/23 19:31 aspirin AdvReac Upset Verified 02/09/23 19:31 Stomach Family History Aunt Breast cancer Grandfather CAD (coronary artery disease) Father Heart disease, Onset Age: 73 Triple bypass Mother Heart disease, Onset Age: 62 Other Diabetes Surgical History H/O ovarian cystectomy (09/2019) History of bilateral oophorectomy History of hysterectomy History of tubal ligation Social History household members: none Smoking Status: Current every day smoker tobacco type: cigarettes Tobacco: How many years used: 15 substance use type: does not use ROS ROS ED ROS Narrative REVIEW OF SYSTEMS: Unless otherwise stated in this report the patient's positive and negative responses for review of systems for constitutional, eyes, ENT, cardiovascular, respiratory, gastrointestinal, neurological, , musculoskeletal, and integument systems and related systems to the presenting problem are either stated in the history of present illness or were not pertinent or were negative for the symptoms and/or complaints related to the presenting medical problem. EXAM Physical Exam Narrative Exam Narrative: Vital signs reviewed and patient is not hypoxic. General: The patient appears well and in no apparent distress. Patient is resting comfortably on cart. Not toxic, lethargic, or listless. Skin: Warm, dry, no pallor noted. There is no rash noted. Head: Normocephalic, atraumatic, patient has mild tenderness palpation to paracervical soft tissue from C3 approximately C6. Patient has full range of motion of cervical spine with no significant difficulty. No meningeal signs or symptoms. No scalp hematoma noted. Eye: Normal conjunctiva, no drainage, EOMI. PERRL. Patient has no lateral, rotary, or horizontal nystagmus. Ears, Nose, Mouth, and Throat: oral mucosa is moist. Nares patent. Mouth without vesicles. Cardiovascular: Regular Rate and Rhythm, no murmurs, gallops, or rubs Respiratory: Patient is in no distress, no accessory muscle use, lungs are clear to auscultation, no wheezing, rales or rhonchi Back: non-tender, no CVA tenderness bilaterally to percussion. NO CTLS midline or paraspinal tenderness to palpation. GI: Soft, obese, mild right upper quadrant tenderness palpation, negative England sign, no tenderness to midepigastric area, mild tenderness to the lateral chest wall secondary to muscle skeletal pain from yesterday patient states. No peritoneal signs. No flank pain bilateral. No rigidity or tympany. No tenderness to palpation, no masses appreciated. No rebound, guarding, or rigidity noted. Musculoskeletal: The patient has full range of motion of all extremities and joints with no difficulty. Patient has no motor, no sensory deficits. Neurological: A&O x4, normal speech, no focal neurological deficits. Psychiatric: Cooperative, patient is histrionic, patient has normal appearing soreness from a fall yesterday, no acute findings on today's clinical exam Const Vital Signs: 02/10/23 14:35 02/10/23 14:44 Temperature 96.3 F L Temperature Source Temporal Pulse Rate 77 Respiratory Rate 18 Respiratory Effort Normal Respiratory Pattern Normal Blood Pressure 146/85 H Blood Pressure Mean 105 Pulse Ox 98 Oxygen Delivery Method Room Air [facility] Lab Data Attestation: I reviewed the patient's lab results. Labs: Laboratory Results - last 24 hr 02/10/23 02/10/23 02/10/23 15:20 15:20 15:23 WBC 9.4 RBC 4.38 Hgb 12.9 Hct 40.3 MCV 92.0 MCH 29.5 MCHC 32.0 RDW Std Deviation 45.7 H RDW Coeff of Shun 13.6 Plt Count 244 MPV 10.7 Immature Gran % (Auto) 1.500 H Neut % (Auto) 60.2 Lymph % (Auto) 29.9 Banner % (Auto) 5.3 Eos % (Auto) 2.4 Baso % (Auto) 0.7 Absolute Neuts (auto) 5.7 Absolute Lymphs (auto) 2.82 Nucleated RBC % 0 Sodium Potassium Chloride Carbon Dioxide Anion Gap BUN Creatinine Estim Creat Clear Calc Est GFR (MDRD) Af Amer Est GFR (MDRD) Non-Af BUN/Creatinine Ratio Glucose Lactic Acid Calcium Total Bilirubin AST ALT Alkaline Phosphatase Troponin I High Sens Total Protein Albumin Globulin Albumin/Globulin Ratio Lipase Urine Color Yellow Urine Clarity Sl. Cloudy Urine pH 6.5 Ur Specific [place] 1.015 Urine Protein Negative Urine Glucose (UA) Normal Urine Ketones Negative Urine Occult Blood Negative Urine Nitrite Negative Urine Bilirubin Negative Urine Urobilinogen Normal Ur Leukocyte Esterase Negative Urine RBC 0 SEEN Urine WBC 0 SEEN Ur Squamous Epith Cells 10-25 SEEN Urine Bacteria 1+ Urine Mucus 0 SEEN Urine Test Negative 02/10/23 02/10/23 15:23 15:23 WBC RBC Hgb Hct MCV MCH MCHC RDW Std Deviation RDW Coeff of Shun Plt Count MPV Immature Gran % (Auto) Neut % (Auto) Lymph % (Auto) Banner % (Auto) Eos % (Auto) Baso % (Auto) Absolute Neuts (auto) Absolute Lymphs (auto) Nucleated RBC % Sodium 138 Potassium 3.6 Chloride 104 Carbon Dioxide 29.0 Anion Gap 5 BUN 10 Creatinine 1.08 H Estim Creat Clear Calc 50.68 Est GFR (MDRD) Af Amer 71 Est GFR (MDRD) Non-Af 59 L BUN/Creatinine Ratio 9.3 L Glucose 96 Lactic Acid 0.4 Calcium 9.3 Total Bilirubin 0.40 AST 16 ALT 24 Alkaline Phosphatase 116 Troponin I High Sens 5 Total Protein 7.7 Albumin 3.9 Globulin 3.8 Albumin/Globulin Ratio 1.0 Lipase 37 Urine Color Urine Clarity Urine pH Ur Specific [place] Urine Protein Urine Glucose (UA) Urine Ketones Urine Occult Blood Urine Nitrite Urine Bilirubin Urine Urobilinogen Ur Leukocyte Esterase Urine RBC Urine WBC Ur Squamous Epith Cells Urine Bacteria Urine Mucus Urine Test EKG Initial EKG: Attestation: I personally reviewed and interpreted this EKG as follows: Comments: EKG interpretation. Normal sinus rhythm at 71 beats a minute. Normal axis deviation. No acute ST elevation, no acute ectopy. QTc of 436. Treatment and Re-Evaluation :: Patient feels better after IV fluids. Patient did have some mild itching and irritation from the medications possibly given. Patient was given Pepcid and Benadryl at discharge. Patient's headache was much better after IV fluids and Toradol and Norflex. Patient's muscle pain had improved as well with IV fluids, Toradol and Norflex. Patient's labs showed no acute abnormality. Patient does have a neurologist that she can follow-up with that she is established with, she will call tomorrow. Patient has a PCP appointment next week. Patient may be referred to cardiology if needed. Patient feels better, wants to be discharged because she needs to go home and take care of matters at home. Patient has no questions at discharge. Discharge Plan Triage Chief Complaint: Weakness Other Complaint: General Illness ED Provider: Marcelino Rosa Dx/Rx/DC Orders Clinical Impression: Closed head injury, Weakness generalized, Cervical pain (neck), Mild headache Instructions: ED Head Injury (Adult), ED Neck Pain, ED Pain, Acute, Uncertain Cause, ED Weakness (Uncertain Cause) Prescriptions: No Action prazosin 1 MG capsule 1 mg PO QHS gabapentin 400 MG capsule 800 mg PO TID hydroxyzine HCl 50 MG tablet 50 mg PO QHS omeprazole magnesium 20 MG tablet,delayed release (DR/EC) 20 mg PO DAILY promethazine 25 mg tablet 25 mg PO TID PRN (Reason: nausea and vomiting) Qty: 14 0RF ondansetron 4 mg tablet,disintegrating 4 mg PO Q8H PRN (Reason: nausea and vomiting) Qty: 10 0RF quetiapine 50 mg tablet 50 mg PO QHS Label Comments: TAKE ONE TO TWO TABLETS BY MOUTH AT BEDTIME lorazepam [Ativan] 1 mg Tablet 1 mg PO DAILY Primary Care Provider: Isabel Arias Referrals: Isabel Arias PA [Primary Care Provider] - Activity Restrictions/Additional Instructions: Increase fluids, use ice 20 minutes on, 20 minutes off. Do not use heat. Follow-up with PCP and be referred to cardiology if needed. Call your neurologist tomorrow for follow-up with your syncopal episode yesterday mild headache. Increase fluids. Use muscle relaxer at home as needed. If you are having any more itching, irritation or possible allergic reaction, use [id number] antihistamines and Pepcid if needed for possible allergic reaction. Disposition Disposition: Home, Self Care
[2023-02-10 15:44] LABS: Internal QC Validated? YES +Cl - CLEAR BKGD; Pregnancy, Urine Negative Negative
[2023-02-10] MEDS: Meclizine HCl 25 MG Tablet PO (15:46)
[2023-02-10] MEDS: Ondansetron 4 MG/2 ML Vial IV (15:47)
[2023-02-10] MEDS: Orphenadrine 60 MG/2 ML Ampul IM (15:47)
[2023-02-10] MEDS: Ketorolac 15 MG/ML Vial IV (15:47)
[2023-02-10 15:50] LABS: Bacteria 1+ /hpf (None Seen); Squamous Epithelial Cells - UA 10-25 SEEN /hpf (5-10)
[2023-02-10 15:54] LABS: AST(SGOT) 16 U/L (15-37); Alanine Aminotransfer ALT/SGPT 24 U/L (13-56); Albumin, Serum 3.9 g/dL (3.2-5.0); Alkaline Phosphatase 116 U/L (45-117); Anion Gap 5 (5-15); BUN 10 mg/dL (7-18); BUN/Creat Ratio 9.3 RATIO (10-20); Calcium,Total 9.3 mg/dL (8.5-10.1); Chloride 104 mmol/L (98-107); Creatinine, Serum 1.08 mg/dL (0.55-1.02); EST Glomerular Filtration Rate 59 mL/min (>60); Est Glom Filt Rate - Afr Amer 71 mL/min (>60); Estimated Creatinine Clearance 50.68 ml/min; Globulin 3.8 g/dL (2.2-4.2); Glucose 96 mg/dL (74-106); Lipase 37 U/L (13-75); Potassium 3.6 mmol/L (3.5-5.1); Protein, Total 7.7 g/dL (6.4-8.2); Sodium Level 138 mmol/L (136-145); Troponin-I HS 5 pg/mL (3.0-54.0)
[2023-02-10 16:16] LABS: Lactic Acid 0.4 mmol/L (0.4-1.9)
[2023-02-10 16:34] VITALS: PULSE 79; O2SAT 94
--- NOTE | 2023-02-10 17:45 | CM.ED ---
Social Work Referral Source: case find Referral Reason: care plan SW reviewed patient's chart and provided a copy of patient's care plan to MD Pay to review possible obstacles and solutions regarding care for patient. MD reports understanding and will consult with SW if needs arise. Ria Abebe MSW, [place]
[2023-02-10] MEDS: Famotidine 200 MG/20 ML MDV 20 MG in 0.9% Normal Saline (Pres. free 8 ML 300 MG IV (17:48)
[2023-02-10] MEDS: DiphenhydrAMINE 50 MG/ML Syringe 25 MG IV (17:50)
[2023-02-10 18:00] VITALS: RESP 18
== END 2023-02-10 18:19 | disposition home or self-care (01) ==
PROVIDERS: Emergency Provider Emergency Medicine; PCP Physician Assistant; Visit Provider Emergency Medicine
DX: S09.8XXA Other specified injuries of head, initial encounter (principal); F31.9 Bipolar disorder, unspecified; E78.5 Hyperlipidemia, unspecified; R53.1 Weakness; F17.210 Nicotine dependence, cigarettes, uncomplicated; M54.2 Cervicalgia; R51.9 Headache, unspecified; W18.39XA Other fall on same level, initial encounter; Z79.899 Other long term (current) drug therapy
CPT/HCPCS: 80053; 81001; 81025; 83605; 83690; 84484; 85025; 93005; 99285; J7030; A4216; J2405; J3490

== ENCOUNTER 2023-04-01 17:13 | Emergency (ER) | payer MEDICAID, SELFPAY ==
[2023-04-01 17:15] VITALS: BP 116/98; PULSE 75; RESP 17; TEMP 36.7; O2SAT 99; BMI 38.8
--- NOTE | 2023-04-01 18:01 | CT_ITS ---
STUDY: CT ABDOMEN AND PELVIS WITHOUT CONTRAST REASON FOR EXAM: Female, 42 years old. right flank pain RADIATION DOSAGE (If Supplied By Facility): CTDIvol = ( 16.82 ) mGy, DLP = ( 890.88 ) mGycm TECHNIQUE: Transaxial images were obtained from the dome of the diaphragm to the symphysis pubis without oral contrast, and without intravenous contrast. Sagittal and coronal images were reconstructed. Individualized dose optimization techniques were used for this CT. COMPARISON: November 18, 2022 FINDINGS: The visualized lung bases are unremarkable. The visualized portions of the heart are within normal limits. Liver is normal in size. There are multiple cysts. Bile ducts are not dilated.. . Status post cholecystectomy. Normal spleen. Normal pancreas. Normal bilateral adrenal glands. Tiny nonobstructing calculus lower pole the right kidney. No evidence for renal obstruction.. No renal mass given unenhanced nature of the study 3 tiny nonobstructing left renal calculi. No evidence for hydronephrosis or mass.. Normal visualized stomach. Normal small intestine. Normal colon. The appendix is visualized and appears normal. Normal abdominal aorta. Normal inferior vena cava. Normal retroperitoneum. Incompletely distended thick walled bladder likely of no significance.. Uterus not visualized status post hysterectomy. Normal abdominal wall. Normal osseous structures. There is a tiny calcification which appears contiguous with the distal right ureter most likely representing phlebolith rather than ureteral calculus which was present on prior exam CT/Abdomen/Pelvis without Cont IMPRESSION: Bilateral nephrolithiasis.. No evidence for renal obstruction or definitive evidence for ureteral calculus Status post cholecystectomy and hysterectomy Electronically Signed: Marcelino Ahmadi MD at 18:53 EDT ,
--- NOTE | 2023-04-01 18:02 | EX.ED.DYSGE1 ---
HPI History of Present Illness Chief Complaint: Flank Pain Informant: patient Onset/Context/Timing Onset: Days Context: Gradual Onset Current Severity: Moderate Maximum Severity: Severe Narrative Narrative: Patient presents with right flank pain. She is a history of kidney stones and has required surgical removal for stones in the past. This was performed by a urologist at [place]. Patient reports 3-day history of right flank pain with dark-colored urine. She called her PCP but cannot be seen until tomorrow. Due to increased pain with nausea and vomiting she presents to the emergency room. [facility] Medical History Bipolar disorder Chronic pain History of renal calculi History of uterine cancer (2006) Hyperlipidemia Incomplete right bundle branch block Lung nodule Migraine Obesity Ovarian cyst Pancreatitis Right tubo-ovarian mass Ureteral stone with hydronephrosis Home Medications prazosin 1 mg capsule 1 mg PO QHS 03/26/20 [History Last Taken Unknown] gabapentin 400 mg capsule 800 mg PO TID 10/03/20 [History Last Taken Unknown] hydroxyzine HCl 50 mg tablet 50 mg PO QHS 10/03/20 [History Last Taken Unknown] omeprazole magnesium 20 mg tablet,delayed release 20 mg PO DAILY 10/03/20 [History Last Taken Unknown] promethazine 25 mg tablet 25 mg PO TID PRN nausea and vomiting #14 tabs 06/14/21 [Rx Last Taken Unknown] ondansetron 4 mg disintegrating tablet 4 mg PO Q8H PRN nausea and vomiting #10 tabs 04/10/22 [Rx Last Taken Unknown] quetiapine 50 mg tablet 50 mg PO QHS 09/07/22 [History Last Taken Unknown] lorazepam 1 mg tablet (Ativan) 1 mg PO DAILY 02/10/23 [History Last Taken Unknown] hydrocodone-acetaminophen 5-325mg 5mg-325mg 1 tab PO Q6H PRN PRN Pain 3 days #10 TABLETS 04/01/23 [Rx Last Taken Unknown] ondansetron 4 mg disintegrating tablet 4 mg PO Q8H PRN PRN Nausea #10 tabs 04/01/23 [Rx Last Taken Unknown] Allergy/AdvReac Type Severity Reaction Status Date / Time Iodinated Contrast Media [CT] Allergy Anaphylaxis Verified 04/01/23 17:15 ketorolac tromethamine Allergy Rash Verified 04/01/23 17:15 [From Toradol] metronidazole [From Flagyl] Allergy Hives Verified 04/01/23 17:15 Penicillins Allergy Hives Verified 04/01/23 17:15 dicyclomine [From Bentyl] AdvReac Mild Hives Verified 04/01/23 17:15 aspirin AdvReac Upset Verified 04/01/23 17:15 Stomach Family History Aunt Breast cancer Grandfather CAD (coronary artery disease) Father Heart disease, Onset Age: 73 Triple bypass Mother Heart disease, Onset Age: 62 Other Diabetes Surgical History H/O ovarian cystectomy (09/2019) History of bilateral oophorectomy History of hysterectomy History of tubal ligation Social History household members: none Smoking Status: Current every day smoker tobacco type: cigarettes Tobacco: How many years used: 15 substance use type: does not use ROS ROS ED Constitutional Constitutional ED: Denies chills or fever(s) Eyes Eyes: Denies change in vision or discharge from eye(s) ENT ENT ED: Denies discharge from eye(s), rhinorrhea or sore throat Cardiovascular Cardiovascular: Denies chest pain or palpitations Respiratory/Chest Respiratory/Chest: Denies cough or dyspnea Gastrointestinal Gastrointestinal: Reports abdominal pain, nausea and vomiting; Denies diarrhea Genitourinary Genitourinary ED: Reports other Details: Dark discoloration to urine. ; Denies difficulty urinating or dysuria Musculoskeletal Musculoskeletal: Denies back pain or extremity pain Integumentary Denies Abrasions or rash Neurologic Neurologic: Denies headache(s) or weakness Psychiatric Psychiatric: Denies anxiety or depression Allergic/Immunologic Allergic/Immunologic ED: Denies lip swelling or urticaria EXAM Physical Exam Const Vital Signs: 04/01/23 17:15 Temperature 98.1 F Temperature Source Temporal Pulse Rate 75 Respiratory Rate 17 Blood Pressure 116/98 H Blood Pressure Mean 104 Pulse Ox 99 Oxygen Delivery Method Room Air Positive well nourished and well developed General Appearance ED: well developed HEENT Reports normocephalic and head/scalp atraumatic Eyes PERRL and EOMs intact bilaterally Neck supple Chest Wall inspection of chest normal and palpation of chest normal Resp normal respiratory effort and clear to auscultation bilaterally Cardio regular rate and regular rhythm GI non-tender Auscultation: hypoactive bowel sounds Palpation: soft Back/Spine General Back: CVA tenderness right Extremity normal to inspection Neuro oriented x3 and no sensory deficits noted Sensorium / Orientation: alert Motor Exam: strength 5/5 throughout Psych mental status grossly normal Skin no rashes or lesions noted MDM MDM MDM Narrative Medical decision making narrative: Patient given morphine and Zofran for pain and nausea. She reports allergy to Toradol and states she cannot take any oral NSAIDs. Labwork obtained to evaluate for leukocytosis, anemia, and electrolyte derangement. Urinalysis obtained to evaluate for infection/hematuria. CT flank obtained to evaluate for possible kidney stone. Lab Data Attestation: I reviewed the patient's lab results. Labs: Laboratory Results - last 24 hr 04/01/23 18:14 WBC 6.8 RBC 4.24 Hgb 12.5 Hct 39.9 MCV 94.1 MCH 29.5 MCHC 31.3 L RDW Std Deviation 47.6 H RDW Coeff of Shun 13.8 Plt Count 214 MPV 10.9 Immature Gran % (Auto) 0.400 Neut % (Auto) 43.0 L Lymph % (Auto) 46.6 H [place] % (Auto) 6.0 Eos % (Auto) 3.4 Baso % (Auto) 0.6 Absolute Neuts (auto) 2.9 Absolute Lymphs (auto) 3.17 Nucleated RBC % 0 Sodium 139 Potassium 3.9 Chloride 107 Carbon Dioxide 27.0 Anion Gap 5 BUN 8 Creatinine 1.17 H Estim Creat Clear Calc 46.78 Est GFR (MDRD) Af Amer 65 Est GFR (MDRD) Non-Af 54 L BUN/Creatinine Ratio 6.8 L Glucose 94 Calcium 9.3 Urine Color Yellow Urine Clarity Sl. Cloudy Urine pH 5.0 Ur Specific [place] 1.025 Urine Protein 15 H Urine Glucose (UA) Normal Urine Ketones Negative Urine Occult Blood 10 H Urine Nitrite Negative Urine Bilirubin Negative Urine Urobilinogen Normal Ur Leukocyte Esterase Negative Urine RBC 0-5 SEEN Urine WBC 0-5 SEEN Ur Squamous Epith Cells 5-10 SEEN Urine Bacteria 1+ Urine Mucus 0 SEEN Radiography Diagnostic Testing: Clinical Impression(s) from Imaging Studies Abdomen/Pelvis CT 04/01/23 18:01 IMPRESSION: Bilateral nephrolithiasis.. No evidence for renal obstruction or definitive evidence for ureteral calculus Status post cholecystectomy and hysterectomy Electronically Signed: Marcelino Ahmadi MD at 18:53 EDT , Treatment and Re-Evaluation :: After returning from CT patient was nauseated. She was given Phenergan. CBC is unremarkable. Chemistry studies significant for slight bump in creatinine to 1.17. She has been given normal saline. Urinalysis reveals 1+ bacteria with 5-10 epithelial cells and 0-5 white cells. No nitrites are noted. CT scan of the flank reveals bilateral nephrolithiasis. There is no evidence for renal obstruction or ureteral calculus. After taking oral Phenergan patient developed increased pain. She was given a single tab of [place]. Test results are all discussed with her. She states her primary care physician just referred her to Dr. Whitney, urology with [facility] here locally. She will call his office tomorrow for follow-up. I will write her a short prescription for Zofran and [place] at home. Discharge Plan Triage Chief Complaint: Flank Pain ED Provider: Eleanor Borjas Dx/Rx/DC Orders Clinical Impression: Flank pain Instructions: ED Flank Pain, Uncertain Cause Prescriptions: New hydrocodone-acetaminophen 5-325 mg tablet 1 tab PO Q6H PRN PRN (Reason: Pain) 3 Days Qty: 10 0RF ondansetron 4 mg tablet,disintegrating 4 mg PO Q8H PRN PRN (Reason: Nausea) Qty: 10 0RF No Action prazosin 1 MG capsule 1 mg PO QHS gabapentin 400 MG capsule 800 mg PO TID hydroxyzine HCl 50 MG tablet 50 mg PO QHS omeprazole magnesium 20 MG tablet,delayed release (DR/EC) 20 mg PO DAILY promethazine 25 mg tablet 25 mg PO TID PRN (Reason: nausea and vomiting) Qty: 14 0RF ondansetron 4 mg tablet,disintegrating 4 mg PO Q8H PRN (Reason: nausea and vomiting) Qty: 10 0RF quetiapine 50 mg tablet 50 mg PO QHS Patient Comments: TAKE ONE TO TWO TABLETS BY MOUTH AT BEDTIME lorazepam [Ativan] 1 mg Tablet 1 mg PO DAILY Primary Care Provider: Michell Baca Referrals: Michell Baca MD [Primary Care Provider] - Activity Restrictions/Additional Instructions: Follow-up with Dr. Whitney as discussed. Disposition Disposition: Home, Self Care
[2023-04-01] MEDS: 0.9% Normal Saline 1,000 ML 1000 ML IV (18:11)
[2023-04-01] MEDS: Ondansetron 4 MG/2 ML Vial IV (18:11)
[2023-04-01] MEDS: Morphine 4 MG/ML Syringe IV (18:12)
[2023-04-01 18:21] LABS: Mucous, Urine 0 SEEN /hpf (<or=2+)
[2023-04-01 18:26] LABS: Color, Urine Yellow (Yellow); Glucose, Dipstick Normal (Normal); Ketone-Dipstick Negative (Negative); Leukocyte Esterase-Dipstick Negative /ul (Negative); Nitrite-Dipstick Negative (Negative); Occult Blood-Urine 10 /ul (Negative); Protein-Dipstick 15 mg/dl (Negative); Specific Gravity, Urine 1.025 (1.002-1.030); Urine Bilirubin Dipstick Negative (Negative); Urine Clarity Sl. Cloudy (Clear); Urine Urobilinogen Normal (Normal)
[2023-04-01 18:31] LABS: Absolute Lymphocyte Count 3.17 X10^3/uL (0.83-4.51); Absolute Neutrophil Count 2.9 X10^3/uL (2.0-7.7); Basophil# 0.04 X10^3/uL; Basophil% 0.6 % (0-1); Eosinophil# 0.23 X10^3/uL; Eosinophils% 3.4 % (0-5); Hematocrit 39.9 % (37-47); Hemoglobin 12.5 g/dL (12.0-15.0); Lymphocyte # 3.17 X10^3/ul (0.83-4.51); Lymphocyte % 46.6 % (19-41); Mean Corp Hgb Conc 31.3 g/dL (32-36); Mean Corpuscular Hgb 29.5 pg (27.0-32.0); Mean Corpuscular Volume 94.1 fL (81-99); Mean Platelet Vol. 10.9 fl (6.2-12.0); Monocyte# 0.41 X10^3/uL; NRBC Flagged by Analyzer 0 % (0-5); Neutrophil # 2.92 X10^3/uL (2.7-7.7); Platelet Count 214 K/mm3 (150-450); RBC Distribution Width CV 13.8 % (11.6-14.6); RBC Distribution Width SD 47.6 fl (35.1-43.9); Red Blood Count 4.24 M/mm3 (4.2-5.4); White Blood Count 6.8 K/mm3 (4.4-11.0)
[2023-04-01 18:33] LABS: Bacteria 1+ /hpf (None Seen); Red Blood Cells-Urine 0-5 SEEN /hpf (0-5); Squamous Epithelial Cells - UA 5-10 SEEN /hpf (5-10); White Blood Cells 0-5 SEEN /hpf (0-5)
[2023-04-01 18:35] LABS: Anion Gap 5 (5-15); BUN 8 mg/dL (7-18); BUN/Creat Ratio 6.8 RATIO (10-20); Calcium,Total 9.3 mg/dL (8.5-10.1); Chloride 107 mmol/L (98-107); Creatinine, Serum 1.17 mg/dL (0.55-1.02); EST Glomerular Filtration Rate 54 mL/min (>60); Est Glom Filt Rate - Afr Amer 65 mL/min (>60); Estimated Creatinine Clearance 46.78 ml/min; Glucose 94 mg/dL (74-106); Potassium 3.9 mmol/L (3.5-5.1); Sodium Level 139 mmol/L (136-145)
--- NOTE | 2023-04-01 19:53 | ED.RN ---
Pt instructed on Phenergan for nausea and route. Pt stated she did not want to have a shot. RN instructed pt it would take away her nausea, pt still continues to refuse medication. Dr. Borjas made aware.
[2023-04-01] MEDS: proMETHazine 25 MG Tablet PO (20:01)
[2023-04-01] MEDS: HYDROcodone Bitartrate/Apap 5/325 Tablet PO (20:48)
== END 2023-04-01 21:07 | disposition home or self-care (01) ==
PROVIDERS: Emergency Provider Emergency Medicine; PCP Internal Medicine; Visit Provider Emergency Medicine
DX: R10.9 Unspecified abdominal pain (principal); R11.2 Nausea with vomiting, unspecified; E78.5 Hyperlipidemia, unspecified; F17.210 Nicotine dependence, cigarettes, uncomplicated; Z87.442 Personal history of urinary calculi; Z85.42 Personal history of malignant neoplasm of other parts of uterus
CPT/HCPCS: 74176; 80048; 81001; 85025; 96361; 96374; 96375; 99284; J7030; A4216; J2405

== ENCOUNTER 2023-04-16 16:33 | Emergency (ER) | payer MEDICAID, SELFPAY ==
[2023-04-16 16:34] VITALS: BP 108/69; PULSE 90; RESP 17; TEMP 37.1; O2SAT 99; BMI 38.7
--- NOTE | 2023-04-16 17:24 | EX.ED.DYSGE1 ---
HPI History of Present Illness Chief Complaint: Dental Detail of Chief Complaint: Dental pain and migraine Informant: patient Narrative Narrative: Patient presents with right lower dental pain has been bothering her for quite some time. She has an appointment to see her dentist at the end of this month. She complains of pain to this area as well as a right-sided migraine that started earlier this morning. She has had nausea and vomiting with a migraine and has light sensitivity. She does report blurred vision. [facility] Medical History Bipolar disorder Chronic pain History of renal calculi History of uterine cancer (2006) Hyperlipidemia Incomplete right bundle branch block Lung nodule Migraine Obesity Ovarian cyst Pancreatitis Right tubo-ovarian mass Ureteral stone with hydronephrosis Home Medications prazosin 1 mg capsule 1 mg PO QHS 03/26/20 [History Last Taken Unknown] gabapentin 400 mg capsule 800 mg PO TID 10/03/20 [History Last Taken Unknown] hydroxyzine HCl 50 mg tablet 50 mg PO QHS 10/03/20 [History Last Taken Unknown] omeprazole magnesium 20 mg tablet,delayed release 20 mg PO DAILY 10/03/20 [History Last Taken Unknown] promethazine 25 mg tablet 25 mg PO TID PRN nausea and vomiting #14 tabs 06/14/21 [Rx Last Taken Unknown] ondansetron 4 mg disintegrating tablet 4 mg PO Q8H PRN nausea and vomiting #10 tabs 04/10/22 [Rx Last Taken Unknown] quetiapine 50 mg tablet 50 mg PO QHS 09/07/22 [History Last Taken Unknown] lorazepam 1 mg tablet (Ativan) 1 mg PO DAILY 02/10/23 [History Last Taken Unknown] hydrocodone-acetaminophen 5-325mg 5mg-325mg 1 tab PO Q6H PRN PRN Pain 3 days #10 TABLETS 04/01/23 [Rx Last Taken Unknown] ondansetron 4 mg disintegrating tablet 4 mg PO Q8H PRN PRN Nausea #10 tabs 04/01/23 [Rx Last Taken Unknown] Allergy/AdvReac Type Severity Reaction Status Date / Time Iodinated Contrast Media [CT] Allergy Anaphylaxis Verified 04/16/23 16:34 ketorolac tromethamine Allergy Rash Verified 04/16/23 16:34 [From Toradol] metronidazole [From Flagyl] Allergy Hives Verified 04/16/23 16:34 Penicillins Allergy Hives Verified 04/16/23 16:34 dicyclomine [From Bentyl] AdvReac Mild Hives Verified 04/16/23 16:34 aspirin AdvReac Upset Verified 04/16/23 16:34 Stomach Family History Aunt Breast cancer Grandfather CAD (coronary artery disease) Father Heart disease, Onset Age: 73 Triple bypass Mother Heart disease, Onset Age: 62 Other Diabetes Surgical History H/O ovarian cystectomy (09/2019) History of bilateral oophorectomy History of hysterectomy History of tubal ligation Social History household members: none Smoking Status: Current every day smoker tobacco type: cigarettes Tobacco: How many years used: 15 substance use type: does not use ROS ROS ED Constitutional Constitutional ED: Denies chills or fever(s) Eyes Eyes: Reports blurry vision; Denies discharge from eye(s) ENT ENT ED: Reports other Details: Right lower dental pain ; Denies discharge from eye(s), rhinorrhea or sore throat Cardiovascular Cardiovascular: Denies chest pain or palpitations Respiratory/Chest Respiratory/Chest: Denies cough or dyspnea Gastrointestinal Gastrointestinal: Reports nausea and vomiting; Denies abdominal pain Genitourinary Genitourinary ED: Denies dysuria Musculoskeletal Musculoskeletal: Denies back pain or extremity pain Integumentary Denies Abrasions or rash Neurologic Neurologic: Reports headache(s); Denies weakness Psychiatric Psychiatric: Denies anxiety or depression Allergic/Immunologic Allergic/Immunologic ED: Denies lip swelling or urticaria EXAM Physical Exam Const Vital Signs: 04/16/23 16:34 Temperature 98.8 F Temperature Source Temporal Pulse Rate 90 Respiratory Rate 17 Blood Pressure 108/69 Blood Pressure Mean 82 Pulse Ox 99 Oxygen Delivery Method Room Air Positive well nourished and well developed General Appearance ED: well developed HEENT Reports normocephalic and head/scalp atraumatic HEENT Narrative: Multiple dental caries. Right mandibular third molar is decayed with mild surrounding gum edema. Posterior pharynx exam is unremarkable. No trismus and no Benjamin's angina. Eyes PERRL and EOMs intact bilaterally Neck supple Chest Wall inspection of chest normal and palpation of chest normal Resp normal respiratory effort and clear to auscultation bilaterally Cardio regular rate and regular rhythm GI normal to inspection, nondistended, normoactive bowel sounds Palpation: soft Extremity normal to inspection Neuro oriented x3 and no sensory deficits noted Sensorium / Orientation: alert Motor Exam: strength 5/5 throughout Psych mental status grossly normal Skin no rashes or lesions noted MDM MDM MDM Narrative Medical decision making narrative: Patient does report an allergy to Toradol and ibuprofen. She is given a migraine cocktail with Tylenol, Reglan, Benadryl, and IV fluids. Treatment and Re-Evaluation :: Shortly after the patient's initial medications were given nursing staff advising the patient was crying and asking for something further for pain. She was given a dose of Solu-Medrol. Given that she has a migraine headache I do not feel opiates will be beneficial for her. In addition to this she does have a care plan. While I was caring for an acute stroke patient and nursing staff advised me that the patient states that she was ready to leave. She eloped in the emergency department before I was able to get back to reevaluate her. She reportedly told nursing staff that her headache was improved. Discharge Plan Triage Chief Complaint: Dental ED Provider: Eleanor Borjas Dx/Rx/DC Orders Clinical Impression: Migraine, Pain, dental Prescriptions: No Action prazosin 1 MG capsule 1 mg PO QHS gabapentin 400 MG capsule 800 mg PO TID hydroxyzine HCl 50 MG tablet 50 mg PO QHS omeprazole magnesium 20 MG tablet,delayed release (DR/EC) 20 mg PO DAILY promethazine 25 mg tablet 25 mg PO TID PRN (Reason: nausea and vomiting) Qty: 14 0RF ondansetron 4 mg tablet,disintegrating 4 mg PO Q8H PRN (Reason: nausea and vomiting) Qty: 10 0RF quetiapine 50 mg tablet 50 mg PO QHS Patient Comments: TAKE ONE TO TWO TABLETS BY MOUTH AT BEDTIME lorazepam [Ativan] 1 mg Tablet 1 mg PO DAILY hydrocodone-acetaminophen 5-325 mg tablet 1 tab PO Q6H PRN PRN (Reason: Pain) 3 Days Qty: 10 0RF ondansetron 4 mg tablet,disintegrating 4 mg PO Q8H PRN PRN (Reason: Nausea) Qty: 10 0RF Primary Care Provider: Michell Baca Referrals: Michell Baca MD [Primary Care Provider] - Disposition Disposition: Home, Self Care Discharge Date/Time: 04/16/23 19:43
[2023-04-16] MEDS: Acetaminophen 500 MG Tablet 1000 MG PO (17:35)
[2023-04-16] MEDS: 0.9% Normal Saline 1,000 ML 1000 ML IV (17:35)
[2023-04-16] MEDS: DiphenhydrAMINE 50 MG/ML Syringe 25 MG IV (17:40)
[2023-04-16] MEDS: Metoclopramide 10 MG/2 ML Vial IV (17:41)
--- NOTE | 2023-04-16 17:49 | CM.ED ---
Social Work Referral Source: case find Referral Reason: care plan SW reviewed patient's chart and provided a copy of patient's care plan to MD Borjas to review possible obstacles and solutions regarding care for patient. reports understanding and will consult with SW if needs arise. Ria Abebe MSW, [facility]
[2023-04-16] MEDS: MethylPREDNISolone 125 MG/2 ML Vial IV (18:33)
--- NOTE | 2023-04-16 19:42 | ED.RN ---
pt requesting to leave at this time. iv removed and dr winn updated. pt walked out
== END 2023-04-16 19:43 | disposition home or self-care (01) ==
PROVIDERS: Emergency Provider Emergency Medicine; PCP Internal Medicine; Visit Provider Emergency Medicine
DX: K08.89 Other specified disorders of teeth and supporting structures (principal); F31.9 Bipolar disorder, unspecified; G43.909 Migraine, unspecified, not intractable, without status migrainosus; E78.5 Hyperlipidemia, unspecified; F17.210 Nicotine dependence, cigarettes, uncomplicated; Z79.899 Other long term (current) drug therapy; Z85.54 Personal history of malignant neoplasm of ureter; Z90.6 Acquired absence of other parts of urinary tract; Z90.710 Acquired absence of both cervix and uterus; Z90.722 Acquired absence of ovaries, bilateral
CPT/HCPCS: 96361; 96374; 96375; 99284; J7030

== ENCOUNTER 2023-05-04 17:00 | Emergency (ER) | payer MEDICAID, SELFPAY ==
[2023-05-04 17:02] VITALS: BP 134/77; PULSE 98; RESP 18; TEMP 36.6; O2SAT 99
[2023-05-04 17:22] VITALS: BMI 38.3
[2023-05-04 17:59] LABS: Mucous, Urine 0 SEEN /hpf (<or=2+); Red Blood Cells-Urine 0 SEEN /hpf (0-5); White Blood Cells 0 SEEN /hpf (0-5)
[2023-05-04 18:01] LABS: Color, Urine Yellow (Yellow); Glucose, Dipstick Normal (Normal); Ketone-Dipstick Negative (Negative); Leukocyte Esterase-Dipstick 25 /ul (Negative); Nitrite-Dipstick Negative (Negative); Occult Blood-Urine Negative /ul (Negative); Protein-Dipstick Negative (Negative); Urine Bilirubin Dipstick Negative (Negative); Urine Clarity Sl. Cloudy (Clear); Urine Urobilinogen Normal (Normal)
[2023-05-04 18:09] LABS: Absolute Lymphocyte Count 3.36 X10^3/uL (0.83-4.51); Absolute Neutrophil Count 3.6 X10^3/uL (2.0-7.7); Basophil# 0.06 X10^3/uL; Basophil% 0.8 % (0-1); Eosinophil# 0.23 X10^3/uL; Eosinophils% 2.9 % (0-5); Hematocrit 40.4 % (37-47); Hemoglobin 13.2 g/dL (12.0-15.0); Lymphocyte # 3.36 X10^3/ul (0.83-4.51); Mean Corp Hgb Conc 32.7 g/dL (32-36); Mean Corpuscular Hgb 30.3 pg (27.0-32.0); Mean Corpuscular Volume 92.9 fL (81-99); Mean Platelet Vol. 11.2 fl (6.2-12.0); Monocyte% 6.4 % (0-10); NRBC Flagged by Analyzer 0 % (0-5); Neutrophil # 3.61 X10^3/uL (2.7-7.7); Neutrophil % 46.3 % (47-70); Platelet Count 248 K/mm3 (150-450); RBC Distribution Width CV 13.1 % (11.6-14.6); RBC Distribution Width SD 44.4 fl (35.1-43.9); Red Blood Count 4.35 M/mm3 (4.2-5.4); White Blood Count 7.8 K/mm3 (4.4-11.0)
[2023-05-04 18:18] LABS: Internal QC Validated? YES +Cl - CLEAR BKGD; Pregnancy, Serum, hCG Quali. NEGATIVE Negative
[2023-05-04 18:24] LABS: Bacteria 1+ /hpf (None Seen); Squamous Epithelial Cells - UA 10-25 SEEN /hpf (5-10)
[2023-05-04 18:26] LABS: ALB/GLOB Ratio 1.1 RATIO (0.9-2.4); AST(SGOT) 13 U/L (15-37); Alanine Aminotransfer ALT/SGPT 25 U/L (13-56); Alkaline Phosphatase 122 U/L (45-117); Anion Gap 5 (5-15); BUN 10 mg/dL (7-18); BUN/Creat Ratio 8.4 RATIO (10-20); Calcium,Total 8.6 mg/dL (8.5-10.1); Chloride 108 mmol/L (98-107); Creatinine, Serum 1.19 mg/dL (0.55-1.02); EST Glomerular Filtration Rate 53 mL/min (>60); Est Glom Filt Rate - Afr Amer 64 mL/min (>60); Globulin 3.8 g/dL (2.2-4.2); Glucose 110 mg/dL (74-106); Lipase 35 U/L (13-75); Potassium 3.4 mmol/L (3.5-5.1); Protein, Total 7.8 g/dL (6.4-8.2); Sodium Level 139 mmol/L (136-145)
[2023-05-04] MEDS: Ondansetron 4 MG/2 ML Vial IV (18:35)
[2023-05-04] MEDS: Acetaminophen 325 MG Tablet 650 MG PO (18:35)
--- NOTE | 2023-05-04 20:02 | EDS_ITS ---
HPI HPI - GI History of Present Illness Chief Complaint: Abd Pain Narrative Narrative: 42-year-old female presenting with abdominal pain. She states is on both sides of her upper abdomen and greater on the left at times. It is greater on the right at other times. She has a history of pancreatitis and kidney stones. Patient states she has not a fever and she has had nausea. She has IBS. She states he is having bowel movements. Denies urinary or vaginal complaints. No fevers or chills. PFSH PFSH Medical History Bipolar disorder Chronic pain History of renal calculi History of uterine cancer (2006) Hyperlipidemia Incomplete right bundle branch block Lung nodule Migraine Obesity Ovarian cyst Pancreatitis Right tubo-ovarian mass Ureteral stone with hydronephrosis Home Medications prazosin 1 mg capsule 1 mg PO QHS 03/26/20 [History Last Taken Unknown] gabapentin 400 mg capsule 800 mg PO TID 10/03/20 [History Last Taken Unknown] hydroxyzine HCl 50 mg tablet 50 mg PO QHS 10/03/20 [History Last Taken Unknown] omeprazole magnesium 20 mg tablet,delayed release 20 mg PO DAILY 10/03/20 [History Last Taken Unknown] promethazine 25 mg tablet 25 mg PO TID PRN nausea and vomiting #14 tabs 06/14/21 [Rx Last Taken Unknown] ondansetron 4 mg disintegrating tablet 4 mg PO Q8H PRN nausea and vomiting #10 tabs 04/10/22 [Rx Last Taken Unknown] quetiapine 50 mg tablet 50 mg PO QHS 09/07/22 [History Last Taken Unknown] lorazepam 1 mg tablet (Ativan) 1 mg PO DAILY 02/10/23 [History Last Taken Unknown] hydrocodone-acetaminophen 5-325mg 5mg-325mg 1 tab PO Q6H PRN PRN Pain 3 days #10 TABLETS 04/01/23 [Rx Last Taken Unknown] ondansetron 4 mg disintegrating tablet 4 mg PO Q8H PRN PRN Nausea #10 tabs 04/01/23 [Rx Last Taken Unknown] Allergy/AdvReac Type Severity Reaction Status Date / Time Iodinated Contrast Media [CT] Allergy Anaphylaxis Verified 05/04/23 17:02 ketorolac tromethamine Allergy Rash Verified 05/04/23 17:02 [From Toradol] metronidazole [From Flagyl] Allergy Hives Verified 05/04/23 17:02 Penicillins Allergy Hives Verified 05/04/23 17:02 dicyclomine [From Bentyl] AdvReac Mild Hives Verified 05/04/23 17:02 aspirin AdvReac Upset Verified 05/04/23 17:02 Stomach Family History Aunt Breast cancer Grandfather CAD (coronary artery disease) Father Heart disease, Onset Age: 73 Triple bypass Mother Heart disease, Onset Age: 62 Other Diabetes Surgical History H/O ovarian cystectomy (09/2019) History of bilateral oophorectomy History of hysterectomy History of tubal ligation Social History household members: none Smoking Status: Current every day smoker tobacco type: cigarettes Tobacco: How many years used: 15 substance use type: does not use ROS ROS ED Constitutional Constitutional ED: Denies chills, fever(s) or sweats Eyes Eyes: Denies blurry vision or change in vision ENT ENT ED: Denies ear pain or sore throat Cardiovascular Cardiovascular: Denies chest pain, palpitations or racing heartbeat Respiratory/Chest Respiratory/Chest: Denies cough, dyspnea or sputum Gastrointestinal Gastrointestinal: Reports abdominal pain and nausea; Denies constipation, diarrhea or vomiting Genitourinary Genitourinary ED: Denies dysuria, hematuria or urinary frequency Musculoskeletal Musculoskeletal: Denies arthralgias, myalgias or neck pain Integumentary Denies abscess, Abrasions or rash Neurologic Neurologic: Denies headache(s), paresthesias or weakness Psychiatric Psychiatric: Denies anxiety, depression, suicidal ideation or suicidal thoughts Endocrine Endocrinology: Denies polydipsia or polyuria EXAM Physical Exam Const Vital Signs: 05/04/23 17:02 Temperature 98 F Temperature Source Temporal Pulse Rate 98 Respiratory Rate 18 Blood Pressure 134/77 H Blood Pressure Mean 96 Pulse Ox 99 Oxygen Delivery Method Room Air Positive well nourished General Appearance ED: NAD HEENT Reports moist mucous membranes normocephalic and atraumatic Eyes PERRL and EOMs intact bilaterally Resp normal respiratory effort Cardio regular rate and regular rhythm GI GI Narrative: Benign abdomen Back/Spine no CVA tenderness Neuro CN's II-XII intact bilaterally, moves all extremities and no sensory deficits noted Motor Exam: strength 5/5 throughout Psych mental status grossly normal MDM MDM MDM Narrative Medical decision making narrative: Is that thePatient seen and evaluated for abdominal pain. Abdominal exam is benign. She has a care plan and we will check some basic lab work just to make sure this was not abnormal. CBC and CMP were obtained to assess liver function, renal function, electrolytes. Lipase was obtained to assess for pancreatitis as she does have a history. Urinalysis to assess for UTI or occult blood. Since the patient does have a care plan we did discuss giving her Zofran and Tylenol. I counseled her that if this does not help to tell the nurse that we will try something different. We reviewed her allergy list. Her blood work all came back normal. It was reported me by nursing staff that the patient had eloped. Impression: 1. Abdominal pain 2. Nausea/ Lab Data Attestation: I reviewed the patient's lab results. Labs: Laboratory Results - last 24 hr 05/04/23 17:33 WBC 7.8 RBC 4.35 Hgb 13.2 Hct 40.4 MCV 92.9 MCH 30.3 MCHC 32.7 RDW Std Deviation 44.4 H RDW Coeff of Shun 13.1 Plt Count 248 MPV 11.2 Immature Gran % (Auto) 0.600 Neut % (Auto) 46.3 L Lymph % (Auto) 43.0 H [place] % (Auto) 6.4 Eos % (Auto) 2.9 Baso % (Auto) 0.8 Absolute Neuts (auto) 3.6 Absolute Lymphs (auto) 3.36 Nucleated RBC % 0 Sodium 139 Potassium 3.4 L Chloride 108 H Carbon Dioxide 26.0 Anion Gap 5 BUN 10 Creatinine 1.19 H Estim Creat Clear Calc 46.00 Est GFR (MDRD) Af Amer 64 Est GFR (MDRD) Non-Af 53 L BUN/Creatinine Ratio 8.4 L Glucose 110 H Calcium 8.6 Total Bilirubin 0.40 AST 13 L ALT 25 Alkaline Phosphatase 122 H Total Protein 7.8 Albumin 4.0 Globulin 3.8 Albumin/Globulin Ratio 1.1 Lipase 35 Serum , Qual NEGATIVE Urine Color Yellow Urine Clarity Sl. Cloudy Urine pH 6.0 Ur Specific [place] 1.010 Urine Protein Negative Urine Glucose (UA) Normal Urine Ketones Negative Urine Occult Blood Negative Urine Nitrite Negative Urine Bilirubin Negative Urine Urobilinogen Normal Ur Leukocyte Esterase 25 H Urine RBC 0 SEEN Urine WBC 0 SEEN Ur Squamous Epith Cells 10-25 SEEN Urine Bacteria 1+ Urine Mucus 0 SEEN Discharge Plan Triage Chief Complaint: Abd Pain ED Provider: Vikram Dominguez Dx/Rx/DC Orders Prescriptions: No Action prazosin 1 MG capsule 1 mg PO QHS gabapentin 400 MG capsule 800 mg PO TID hydroxyzine HCl 50 MG tablet 50 mg PO QHS omeprazole magnesium 20 MG tablet,delayed release (DR/EC) 20 mg PO DAILY promethazine 25 mg tablet 25 mg PO TID PRN (Reason: nausea and vomiting) Qty: 14 0RF ondansetron 4 mg tablet,disintegrating 4 mg PO Q8H PRN (Reason: nausea and vomiting) Qty: 10 0RF quetiapine 50 mg tablet 50 mg PO QHS Patient Comments: TAKE ONE TO TWO TABLETS BY MOUTH AT BEDTIME lorazepam [Ativan] 1 mg Tablet 1 mg PO DAILY hydrocodone-acetaminophen 5-325 mg tablet 1 tab PO Q6H PRN PRN (Reason: Pain) 3 Days Qty: 10 0RF ondansetron 4 mg tablet,disintegrating 4 mg PO Q8H PRN PRN (Reason: Nausea) Qty: 10 0RF Primary Care Provider: Michell Baca Referrals: Michell Baca MD [Primary Care Provider] -
== END 2023-05-04 20:05 | disposition home or self-care (01) ==
PROVIDERS: Emergency Provider Student in an Organized Health Care Education/Training Program; PCP Internal Medicine; Visit Provider Student in an Organized Health Care Education/Training Program
DX: R10.11 Right upper quadrant pain (principal); F31.9 Bipolar disorder, unspecified; R11.0 Nausea; F17.210 Nicotine dependence, cigarettes, uncomplicated; E78.5 Hyperlipidemia, unspecified; Z79.899 Other long term (current) drug therapy; Z85.42 Personal history of malignant neoplasm of other parts of uterus; Z90.6 Acquired absence of other parts of urinary tract; Z90.710 Acquired absence of both cervix and uterus; R10.12 Left upper quadrant pain
CPT/HCPCS: 80053; 81001; 83690; 84703; 85025; 96374; 99284; A4216; J2405

== ENCOUNTER 2023-06-06 16:40 | Emergency (ER) | payer MEDICAID, SELFPAY ==
[2023-06-06 16:42] VITALS: BP 185/158; PULSE 95; RESP 16; TEMP 36.8; O2SAT 98
--- NOTE | 2023-06-06 16:44 | ED.RN ---
PT ARRIVES WEARING [facility] FROM [facility].
[2023-06-06 16:49] VITALS: BMI 40.5
--- NOTE | 2023-06-06 17:02 | ED.VIS.DENTA ---
HPI History of Present Illness Chief Complaint: Dental Detail of Chief Complaint: Jaw dental pain. Informant: patient Onset/Context/Timing Onset: Weeks Context: Gradual Onset Timing: Continuous Current Severity: Moderate Maximum Severity: Moderate Associated Symptoms Assocated Symptom - Dental: Negative for fever, jaw swelling, face swelling, cold sensitivity or hot sensitivity Narrative Narrative: 42-year-old female with right lower jaw pain.. Believes that she has a cavity and dental infection. Patient is requesting pain medication says she has reflux and she cannot do a Motrin. She has been taking Tylenol. Prior similar symptoms: Yes Recent Illness/Hospitalization: No [facility] Medical History Bipolar disorder Chronic pain History of renal calculi History of uterine cancer (2006) Hyperlipidemia Incomplete right bundle branch block Lung nodule Migraine Obesity Ovarian cyst Pancreatitis Right tubo-ovarian mass Ureteral stone with hydronephrosis Home Medications prazosin 1 mg capsule 1 mg PO QHS 03/26/20 [History Last Taken Unknown] gabapentin 400 mg capsule 800 mg PO TID 10/03/20 [History Last Taken Unknown] hydroxyzine HCl 50 mg tablet 50 mg PO QHS 10/03/20 [History Last Taken Unknown] omeprazole magnesium 20 mg tablet,delayed release 20 mg PO DAILY 10/03/20 [History Last Taken Unknown] promethazine 25 mg tablet 25 mg PO TID PRN nausea and vomiting #14 tabs 06/14/21 [Rx Last Taken Unknown] ondansetron 4 mg disintegrating tablet 4 mg PO Q8H PRN nausea and vomiting #10 tabs 04/10/22 [Rx Last Taken Unknown] quetiapine 50 mg tablet 50 mg PO QHS 09/07/22 [History Last Taken Unknown] lorazepam 1 mg tablet (Ativan) 1 mg PO DAILY 02/10/23 [History Last Taken Unknown] hydrocodone-acetaminophen 5-325mg 5mg-325mg 1 tab PO Q6H PRN PRN Pain 3 days #10 TABLETS 04/01/23 [Rx Last Taken Unknown] ondansetron 4 mg disintegrating tablet 4 mg PO Q8H PRN PRN Nausea #10 tabs 04/01/23 [Rx Last Taken Unknown] clindamycin HCl 150 mg capsule 300 mg (2 x 150 mg) PO 4X/DAY 10 days #80 CAPSULES 06/06/23 [Rx Last Taken Unknown] clindamycin HCl 150 mg capsule (Cleocin HCl) 300 mg (2 x 150 mg) PO Q8H 10 days #60 caps 06/06/23 [Rx Last Taken Unknown] Allergy/AdvReac Type Severity Reaction Status Date / Time Iodinated Contrast Media [CT] Allergy Anaphylaxis Verified 06/06/23 16:41 ketorolac tromethamine Allergy Rash Verified 06/06/23 16:41 [From Toradol] metronidazole [From Flagyl] Allergy Hives Verified 06/06/23 16:41 Penicillins Allergy Hives Verified 06/06/23 16:41 dicyclomine [From Bentyl] AdvReac Mild Hives Verified 06/06/23 16:41 aspirin AdvReac Upset Verified 06/06/23 16:41 Stomach Family History Aunt Breast cancer Grandfather CAD (coronary artery disease) Father Heart disease, Onset Age: 73 Triple bypass Mother Heart disease, Onset Age: 62 Other Diabetes Surgical History H/O ovarian cystectomy (09/2019) History of bilateral oophorectomy History of hysterectomy History of tubal ligation Social History household members: none Smoking Status: Current every day smoker tobacco type: cigarettes Tobacco: How many years used: 15 substance use type: does not use ROS ROS ED ROS Narrative Denies recent illness. Review of Systems ROS Unobtainable: Denies due to encephalopathy Constitutional Constitutional ED: Denies chills or fever(s) Eyes Eyes: Denies blurry vision ENT ENT ED: Denies ear pain Cardiovascular Cardiovascular: Denies chest pain Respiratory/Chest Respiratory/Chest: Denies cough or dyspnea Gastrointestinal Gastrointestinal: Denies abdominal pain Genitourinary Genitourinary ED: Denies dysuria or hematuria Musculoskeletal Musculoskeletal: Denies arthralgias Integumentary Denies abscess Neurologic Neurologic: Denies headache(s) Psychiatric Psychiatric: Denies anxiety or depression Endocrine Endocrinology: Denies cold intolerance Hematologic/Lymphatic Hematologic/Lymphatic: Denies easy bleeding, easy bruising or lymphadenopathy Allergic/Immunologic Allergic/Immunologic ED: Denies mouth swelling, tongue swelling or urticaria EXAM Physical Exam Narrative Exam Narrative: Appearing 42-year-old female no acute distress. Vital signs stable afebrile. Initial blood pressure elevated 185/58. Presentation. Is very few lower dentition the molar on the right is already done already in the gumline the gums swollen and tender. There is no obvious abscess. Posterior pharynx normal. Neck nontender. No lymphadenopathy. Lungs clear to auscultation bilaterally. Heart regular rhythm no murmur. Abdomen soft nontender. Moving all 4 extremities. Nontender no edema. Awake and alert. Const Vital Signs: 06/06/23 16:42 Temperature 98.2 F Temperature Source Temporal Pulse Rate 95 Respiratory Rate 16 Blood Pressure 185/158 H Blood Pressure Mean 167 Pulse Ox 98 Oxygen Delivery Method Room Air Positive well nourished and well developed; Negative for cachectic, contractures or unkempt General Appearance ED: well developed and NAD; Negative for unkempt, cachectic, contractures or pallor Nutritional Appearance: Negative for cachectic HEENT Denies other Negative for trauma, tenderness or other Mouth ED: Yes oral and palatal mucosa abnormal Mouth: oral and palatal mucosa abnormal Teeth and Gingiva: abnormal tooth and associated gingiva Throat: posterior oropharynx normal Eyes PERRL and EOMs intact bilaterally General Eye ED: Negative for pale conjunctiva or scleral icterus Visual Acuity: Negative for other Neck no lymphadenopathy, supple and no JVD General: Negative for normal visual inspection, anterior neck swelling or tenderness Lymph Lymphatic: no lymphadenopathy noted and lymphadenopathy; Negative for other Chest Wall inspection of chest normal and palpation of chest normal Resp normal respiratory effort, no retractions and clear to auscultation bilaterally Cardio regular rate, regular rhythm, S1 normal heart sound, S2 normal heart sound and no murmurs Jugular Venous Distention: Negative for other Palpation: Negative for palpable S3 Rate: Negative for bradycardia GI normal to inspection, nondistended, normoactive bowel sounds, non-tender, non-distended and no masses Inspection: Negative for other Palpation: soft Back/Spine no CVA tenderness General Back: Negative for CVA tenderness Cervical Spine: Negative for other Extremity normal to inspection and no joint enlargement General Extremety ED: Negative for edema General Extremity: Negative for edema Neuro oriented x3 and CN's II-XII intact bilaterally Sensorium / Orientation: alert, oriented to person, oriented to place and oriented to time Motor Exam: strength 5/5 throughout Psych mental status grossly normal Appearance: Negative for unkempt Attitude: No agitated Mood & Affect: Negative for depressed, anxious or tearful Skin no rashes or lesions noted and no wounds General Skin Exam: Negative for pallor MDM MDM MDM Narrative Medical decision making narrative: 42-year-old female with right lower dental pain that is eroded to the gumline and has gingival inflammation. No obvious abscess. She will be started on clindamycin due to penicillin allergy. 300 mg 4 times a day for 10 days. Motrin and Tylenol for pain. Patient questioned me multiple times about writing her for narcotic pain medication I told her typically did not do that for dental pain. She has history of chronic pain and bipolar. We also ran [facility] report and she has had recent narcotic prescriptions from other local emergency department about 3 weeks ago. History & Record Review Discussion w/independent historian: Patient Discharge Plan Triage Chief Complaint: Dental ED Provider: Grzegorz Roper Dx/Rx/DC Orders Clinical Impression: Pain, dental, Dental infection Instructions: ED Dental Pain Prescriptions: New clindamycin HCl 150 mg capsule 300 mg PO 4X/DAY 10 Days Qty: 80 0RF clindamycin HCl [Cleocin HCl] 150 mg capsule 300 mg PO Q8H 10 Days Qty: 60 0RF No Action prazosin 1 MG capsule 1 mg PO QHS gabapentin 400 MG capsule 800 mg PO TID hydroxyzine HCl 50 MG tablet 50 mg PO QHS omeprazole magnesium 20 MG tablet,delayed release (DR/EC) 20 mg PO DAILY promethazine 25 mg tablet 25 mg PO TID PRN (Reason: nausea and vomiting) Qty: 14 0RF ondansetron 4 mg tablet,disintegrating 4 mg PO Q8H PRN (Reason: nausea and vomiting) Qty: 10 0RF quetiapine 50 mg tablet 50 mg PO QHS Patient Comments: TAKE ONE TO TWO TABLETS BY MOUTH AT BEDTIME lorazepam [Ativan] 1 mg Tablet 1 mg PO DAILY hydrocodone-acetaminophen 5-325 mg tablet 1 tab PO Q6H PRN PRN (Reason: Pain) 3 Days Qty: 10 0RF ondansetron 4 mg tablet,disintegrating 4 mg PO Q8H PRN PRN (Reason: Nausea) Qty: 10 0RF Primary Care Provider: Michell Baca Referrals: Michell Baca MD [Primary Care Provider] - Activity Restrictions/Additional Instructions: Follow-up with with a dentist soon as possible order of the right lower tooth extracted. Motrin and Tylenol for pain. Clindamycin 4 times a day for the dental infection. Disposition Disposition: Home, Self Care
[2023-06-06 17:22] VITALS: BP 168/102
== END 2023-06-06 17:24 | disposition home or self-care (01) ==
LOC: ED 17:02
PROVIDERS: Emergency Provider Emergency Medicine; PCP Internal Medicine; Visit Provider Emergency Medicine
DX: K04.7 Periapical abscess without sinus (principal); F31.9 Bipolar disorder, unspecified; K08.89 Other specified disorders of teeth and supporting structures; F17.210 Nicotine dependence, cigarettes, uncomplicated; E78.5 Hyperlipidemia, unspecified; Z79.899 Other long term (current) drug therapy; Z85.54 Personal history of malignant neoplasm of ureter; Z90.722 Acquired absence of ovaries, bilateral; Z90.6 Acquired absence of other parts of urinary tract; Z90.710 Acquired absence of both cervix and uterus
CPT/HCPCS: 99282

== ENCOUNTER 2023-06-11 16:28 | Emergency (ER) | payer MEDICAID, SELFPAY ==
[2023-06-11 16:29] VITALS: BP 170/141; PULSE 78; RESP 20; TEMP 36.4; O2SAT 99
[2023-06-11 16:44] VITALS: PULSE 81; RESP 18; O2SAT 100
--- NOTE | 2023-06-11 17:45 | ED.RN ---
Pt. yelling into call light frustrated with the wait times. States my breathing trouble needs to be addressed right now
[2023-06-11] MEDS: DiphenhydrAMINE 50 MG/ML Syringe 25 MG IV (18:01)
[2023-06-11] MEDS: Metoclopramide 10 MG/2 ML Vial IV (18:01)
--- NOTE | 2023-06-11 18:07 | RAD_ITS ---
EXAM: XR CHEST, 1 VIEW CLINICAL INDICATION: chest pain TECHNIQUE: Frontal view of the chest. COMPARISON: 07/29/2022 FINDINGS: LUNGS AND PLEURAL SPACES: Unremarkable. No consolidation or edema. No pneumothorax. No effusion. HEART: Unremarkable. Cardiac silhouette not enlarged. MEDIASTINUM: Central airways and mediastinal contour are unremarkable. BONES/JOINTS: Unremarkable. SOFT TISSUES: Unremarkable. RAD/Chest 1 View (Portable) IMPRESSION: No radiographic evidence of acute cardiopulmonary disease. Electronically Signed: Marcio Langley MD at 18:28 EDT ,
--- NOTE | 2023-06-11 18:08 | EX.ED.DYSGE1 ---
HPI History of Present Illness Chief Complaint: Shortness of Breath Narrative Narrative: 42-year-old female presenting with shortness of breath. She states has been ongoing for couple of days. She states she is out of her albuterol inhaler. She states she does not have any history of lung disease or heart disease. She is complaining of tightness across her chest and some dyspnea. No fevers or chills. No cough. She feels generally well other than a headache which she is developed. She states has a history of migraines. She denies any trauma or acute onset headache pain. No visual complaints, slurred speech, difficulty walking acute neurological allergies. She does state that the pain in her chest/epigastrium is worse with a deep inhalation although she points to her stomach and on her chest. She has a history of pancreatitis in the past but states she does not believe this pancreatitis. [facility] Medical History Bipolar disorder Chronic pain History of renal calculi History of uterine cancer (2006) Hyperlipidemia Incomplete right bundle branch block Lung nodule Migraine Obesity Ovarian cyst Pancreatitis Right tubo-ovarian mass Ureteral stone with hydronephrosis Home Medications prazosin 1 mg capsule 1 mg PO QHS 03/26/20 [History Last Taken Unknown] gabapentin 400 mg capsule 800 mg PO TID 10/03/20 [History Last Taken Unknown] hydroxyzine HCl 50 mg tablet 50 mg PO QHS 10/03/20 [History Last Taken Unknown] omeprazole magnesium 20 mg tablet,delayed release 20 mg PO DAILY 10/03/20 [History Last Taken Unknown] promethazine 25 mg tablet 25 mg PO TID PRN nausea and vomiting #14 tabs 06/14/21 [Rx Last Taken Unknown] ondansetron 4 mg disintegrating tablet 4 mg PO Q8H PRN nausea and vomiting #10 tabs 04/10/22 [Rx Last Taken Unknown] quetiapine 50 mg tablet 50 mg PO QHS 09/07/22 [History Last Taken Unknown] lorazepam 1 mg tablet (Ativan) 1 mg PO DAILY 02/10/23 [History Last Taken Unknown] hydrocodone-acetaminophen 5-325mg 5mg-325mg 1 tab PO Q6H PRN PRN Pain 3 days #10 TABLETS 04/01/23 [Rx Last Taken Unknown] ondansetron 4 mg disintegrating tablet 4 mg PO Q8H PRN PRN Nausea #10 tabs 04/01/23 [Rx Last Taken Unknown] clindamycin HCl 150 mg capsule 300 mg (2 x 150 mg) PO 4X/DAY 10 days #80 CAPSULES 06/06/23 [Rx Last Taken Unknown] clindamycin HCl 150 mg capsule (Cleocin HCl) 300 mg (2 x 150 mg) PO Q8H 10 days #60 caps 06/06/23 [Rx Last Taken Unknown] Allergy/AdvReac Type Severity Reaction Status Date / Time Iodinated Contrast Media [CT] Allergy Anaphylaxis Verified 06/11/23 16:29 ketorolac tromethamine Allergy Rash Verified 06/11/23 16:29 [From Toradol] metronidazole [From Flagyl] Allergy Hives Verified 06/11/23 16:29 Penicillins Allergy Hives Verified 06/11/23 16:29 dicyclomine [From Bentyl] AdvReac Mild Hives Verified 06/11/23 16:29 aspirin AdvReac Upset Verified 06/11/23 16:29 Stomach Family History Aunt Breast cancer Grandfather CAD (coronary artery disease) Father Heart disease, Onset Age: 73 Triple bypass Mother Heart disease, Onset Age: 62 Other Diabetes Surgical History H/O ovarian cystectomy (09/2019) History of bilateral oophorectomy History of hysterectomy History of tubal ligation Social History household members: none Smoking Status: Current every day smoker tobacco type: cigarettes Tobacco: How many years used: 15 substance use type: does not use ROS ROS ED Constitutional Constitutional ED: Denies chills, fever(s) or sweats Eyes Eyes: Denies blurry vision or change in vision ENT ENT ED: Denies ear pain or sore throat Cardiovascular Cardiovascular: Reports chest pain; Denies palpitations or racing heartbeat Respiratory/Chest Respiratory/Chest: Reports cough and dyspnea; Denies sputum Gastrointestinal Gastrointestinal: Denies abdominal pain, constipation, diarrhea, nausea or vomiting Genitourinary Genitourinary ED: Denies dysuria, hematuria or urinary frequency Musculoskeletal Musculoskeletal: Denies arthralgias, myalgias or neck pain Integumentary Denies abscess, Abrasions or rash Neurologic Neurologic: Reports headache(s); Denies paresthesias or weakness Psychiatric Psychiatric: Denies anxiety, depression, suicidal ideation or suicidal thoughts Endocrine Endocrinology: Denies polydipsia or polyuria EXAM Physical Exam Const Vital Signs: 06/11/23 16:29 06/11/23 16:44 06/11/23 16:44 Temperature 97.5 F L Temperature Source Temporal Pulse Rate 78 81 Respiratory Rate 20 H 18 Respiratory Effort Short of Breath Blood Pressure 170/141 H Blood Pressure Mean 150 Pulse Ox 99 100 Oxygen Delivery Method Room Air Room Air Room Air 06/11/23 18:06 Temperature Temperature Source Pulse Rate Respiratory Rate Respiratory Effort Blood Pressure Blood Pressure Mean Pulse Ox Oxygen Delivery Method Room Air Positive well nourished General Appearance ED: NAD HEENT Reports moist mucous membranes Eyes PERRL and EOMs intact bilaterally Chest Wall inspection of chest normal Resp normal respiratory effort and clear to auscultation bilaterally Auscultation: Negative for rales, rhonchi or wheezes Cardio regular rate and regular rhythm GI GI Narrative: Mild epigastric tenderness Extremity normal to inspection General Extremety ED: Negative for edema or tenderness General Extremity: Negative for edema Neuro oriented x3 and CN's II-XII intact bilaterally Sensorium / Orientation: alert Motor Exam: strength 5/5 throughout Psych mental status grossly normal Skin no rashes or lesions noted and no wounds MDM MDM MDM Narrative Medical decision making narrative: Presenting with chest pain and shortness of breath. Differential includes COPD exacerbation, acute coronary syndrome, pneumonia, dehydration, electrolyte normalities, pancreatitis, gastritis, migraine headache. Patient ordered with Reglan, Benadryl, normal saline for headache. CBC was obtained to assess white blood cell count, hemoglobin, platelets. CMP to assess for liver function, renal function, electrolytes, glucose, anion gap. EKG and high-sensitivity troponin to assess for ischemia and dysrhythmia. Chest x-ray to rule out pneumonia. Clinically have low suspicion for PE although this was considered. Heart rate and respiratory rate are normal. Oxygen 99 to 100% on room air. After blood work and EKG was ordered the patient decided that she did not have anything wrong with her and eloped. Her EKG showed a normal sinus rhythm with a ventricular to 78 bpm without sign of ischemic change or ectopy on my interpretation. Her chest x-ray showed no acute process on my interpretation. CBC and CMP were unremarkable. They is negative. High-sensitivity troponin is 4. Impression: 1. Headache 2. Chest pain 3. Dyspnea Lab Data Labs: Laboratory Results - last 24 hr 06/11/23 18:05 WBC 8.8 RBC 4.16 L Hgb 12.3 Hct 38.6 MCV 92.8 MCH 29.6 MCHC 31.9 L RDW Std Deviation 45.4 H RDW Coeff of Shun 13.4 Plt Count 249 MPV 10.5 Immature Gran % (Auto) 0.900 Neut % (Auto) 50.0 Lymph % (Auto) 39.9 [place] % (Auto) 5.7 Eos % (Auto) 2.8 Baso % (Auto) 0.7 Absolute Neuts (auto) 4.4 Absolute Lymphs (auto) 3.53 Nucleated RBC % 0 Sodium 138 Potassium 3.9 Chloride 107 Carbon Dioxide 27.0 Anion Gap 4 L BUN 11 Creatinine 1.05 H Est GFR (MDRD) Af Amer 73 Est GFR (MDRD) Non-Af 61 BUN/Creatinine Ratio 10.5 Glucose 105 Calcium 9.0 Total Bilirubin 0.30 Direct Bilirubin 0.08 AST 22 ALT 37 Alkaline Phosphatase 105 Troponin I High Sens 4 Total Protein 7.2 Albumin 3.7 Globulin 3.5 Lipase 42 Radiography Diagnostic Testing: Clinical Impression(s) from Imaging Studies Chest X-Ray 06/11/23 18:07 IMPRESSION: No radiographic evidence of acute cardiopulmonary disease. Electronically Signed: Marcio Langley MD at 18:28 EDT , Discharge Plan Triage Chief Complaint: Shortness of Breath ED Provider: Vikram Dominguez Dx/Rx/DC Orders Prescriptions: No Action prazosin 1 MG capsule 1 mg PO QHS gabapentin 400 MG capsule 800 mg PO TID hydroxyzine HCl 50 MG tablet 50 mg PO QHS omeprazole magnesium 20 MG tablet,delayed release (DR/EC) 20 mg PO DAILY promethazine 25 mg tablet 25 mg PO TID PRN (Reason: nausea and vomiting) Qty: 14 0RF ondansetron 4 mg tablet,disintegrating 4 mg PO Q8H PRN (Reason: nausea and vomiting) Qty: 10 0RF quetiapine 50 mg tablet 50 mg PO QHS Patient Comments: TAKE ONE TO TWO TABLETS BY MOUTH AT BEDTIME lorazepam [Ativan] 1 mg Tablet 1 mg PO DAILY hydrocodone-acetaminophen 5-325 mg tablet 1 tab PO Q6H PRN PRN (Reason: Pain) 3 Days Qty: 10 0RF ondansetron 4 mg tablet,disintegrating 4 mg PO Q8H PRN PRN (Reason: Nausea) Qty: 10 0RF clindamycin HCl 150 mg capsule 300 mg PO 4X/DAY 10 Days Qty: 80 0RF clindamycin HCl [Cleocin HCl] 150 mg capsule 300 mg PO Q8H 10 Days Qty: 60 0RF Primary Care Provider: Michell Baca Referrals: Michell Baca MD [Primary Care Provider] - Disposition Disposition: Elopement Discharge Date/Time: 06/11/23 19:16
[2023-06-11 18:10] LABS: Absolute Lymphocyte Count 3.53 X10^3/uL (0.83-4.51); Absolute Neutrophil Count 4.4 X10^3/uL (2.0-7.7); Basophil# 0.06 X10^3/uL; Basophil% 0.7 % (0-1); Eosinophil# 0.25 X10^3/uL; Eosinophils% 2.8 % (0-5); Hematocrit 38.6 % (37-47); Hemoglobin 12.3 g/dL (12.0-15.0); Lymphocyte # 3.53 X10^3/ul (0.83-4.51); Lymphocyte % 39.9 % (19-41); Mean Corp Hgb Conc 31.9 g/dL (32-36); Mean Corpuscular Hgb 29.6 pg (27.0-32.0); Mean Corpuscular Volume 92.8 fL (81-99); Mean Platelet Vol. 10.5 fl (6.2-12.0); Monocyte% 5.7 % (0-10); NRBC Flagged by Analyzer 0 % (0-5); Neutrophil # 4.42 X10^3/uL (2.7-7.7); Platelet Count 249 K/mm3 (150-450); RBC Distribution Width CV 13.4 % (11.6-14.6); RBC Distribution Width SD 45.4 fl (35.1-43.9); Red Blood Count 4.16 M/mm3 (4.2-5.4); White Blood Count 8.8 K/mm3 (4.4-11.0)
--- NOTE | 2023-06-11 18:22 | ED.RN ---
Pt. requesting to leave, states I know nothing is going to be wrong with me anyway. Pt. requested IV to be removed. Pt. did not want to stay to sign AMA paperwork.
[2023-06-11 18:30] LABS: AST(SGOT) 22 U/L (15-37); Alanine Aminotransfer ALT/SGPT 37 U/L (13-56); Albumin, Serum 3.7 g/dL (3.2-5.0); Alkaline Phosphatase 105 U/L (45-117); Anion Gap 4 (5-15); BUN 11 mg/dL (7-18); BUN/Creat Ratio 10.5 RATIO (10-20); Bilirubin, Direct 0.08 mg/dL (0.00-0.30); Chloride 107 mmol/L (98-107); Creatinine, Serum 1.05 mg/dL (0.55-1.02); EST Glomerular Filtration Rate 61 mL/min (>60); Est Glom Filt Rate - Afr Amer 73 mL/min (>60); Globulin 3.5 g/dL (2.2-4.2); Glucose 105 mg/dL (74-106); Lipase 42 U/L (13-75); Potassium 3.9 mmol/L (3.5-5.1); Protein, Total 7.2 g/dL (6.4-8.2); Sodium Level 138 mmol/L (136-145); Troponin-I HS 4 pg/mL (3.0-54.0)
== END 2023-06-11 19:16 | disposition left against medical advice (07) ==
PROVIDERS: Emergency Provider Student in an Organized Health Care Education/Training Program; PCP Internal Medicine; Visit Provider Student in an Organized Health Care Education/Training Program
DX: R07.9 Chest pain, unspecified (principal); E78.5 Hyperlipidemia, unspecified; R51.9 Headache, unspecified; R06.00 Dyspnea, unspecified; F17.210 Nicotine dependence, cigarettes, uncomplicated; Z90.6 Acquired absence of other parts of urinary tract; Z90.710 Acquired absence of both cervix and uterus
CPT/HCPCS: 71045; 80048; 80076; 83690; 84484; 85025; 93005; 96374; 96375; 99285

== ENCOUNTER 2023-07-22 15:42 | Emergency (ER) | payer MEDICAID, SELFPAY ==
[2023-07-22 15:43] VITALS: BP 125/69; PULSE 87; RESP 18; TEMP 36.7; O2SAT 96; BMI 39.6
--- NOTE | 2023-07-22 15:58 | CT_ITS ---
STUDY: CT CERVICAL SPINE WITHOUT CONTRAST REASON FOR EXAM: Female, 42 years old. fall, neck pain RADIATION DOSAGE (If Supplied By Facility): CTDIvol = ( 22.75 ) mGy, DLP = ( 427.56 ) mGycm TECHNIQUE: High resolution transaxial imaging was performed without contrast material. Sagittal and coronal images were reconstructed. Individualized dose optimization techniques were used for this CT. COMPARISON: None FINDINGS: Normal craniovertebral junction. Normal anterior atlantoaxial articulation. Normal odontoid process. Normal cervical lordosis. Normal vertebral bodies and posterior osseous elements. C2-3: Normal endplates. Normal disc height and morphology. Normal central canal and intervertebral neuroforamina. C3-4: Normal endplates. Normal disc height and morphology. Normal central canal and intervertebral neuroforamina. C4-5: Normal endplates. Normal disc height and morphology. Normal central canal and intervertebral neuroforamina. C5-6: Normal endplates. Normal disc height and morphology. Normal central canal and intervertebral neuroforamina. C6-7: Normal endplates. Normal disc height and morphology. Normal central canal and intervertebral neuroforamina. C7-T1: Normal endplates. Normal disc height and morphology. Normal central canal and intervertebral neuroforamina. Normal visualized soft tissue structures. CT/Spine Cervical without Contras IMPRESSION: Normal unenhanced CT examination of the cervical spine. Electronically Signed: Marcelino Ahmadi MD at 16:56 EST ,
--- NOTE | 2023-07-22 15:58 | CT_ITS ---
STUDY: CT BRAIN WITHOUT CONTRAST REASON FOR EXAM: Female, 42 years old. syncope, head injury RADIATION DOSAGE (If Supplied By Facility): CTDIvol = ( 44.99 ) mGy, DLP = ( 779.24 ) mGycm TECHNIQUE: Transaxial CT imaging of the brain was performed without administration of intravenous contrast material. Individualized dose optimization techniques were used for this CT. COMPARISON: No relevant priors. FINDINGS: Normal soft tissue structures. Normal calvarium. Normal size ventricles and extra-axial spaces for the patient''s age. Normal white matter tracts of the cerebral hemispheres. Normal basal ganglia and thalami. Normal brainstem. Normal cerebellum. Partial empty sella deformity likely of no significance. There is no intracranial hemorrhage. There are no findings of an acute ischemic infarction. Partial opacification of the mastoids bilaterally likely due to old inflammatory disease Normal visualized paranasal sinuses. CT/Brain/Head without Contrast IMPRESSION: Partial empty sella deformity likely of no significance. No acute bleed or other significant intracranial abnormality Electronically Signed: Marcelino Ahmadi MD at 16:55 EST Reading Location ID and State: [facility] / [place] Tel , Service support ,
--- NOTE | 2023-07-22 16:00 | EDS_ITS ---
HPI History of Present Illness Chief Complaint: Syncope Detail of Chief Complaint: Syncope Informant: patient Narrative Narrative: Patient presents to the emergency department with complaint of a syncopal episode that occurred prior arrival in the emergency department. Patient states that she had been intermittently feeling lightheaded and dizzy throughout the day. She was going to get ready for work and she got up to go to the bathroom and remembers feeling lightheaded and then waking up on the living room floor. This is a hardwood floor. She had headache and complaining of neck pain. She complains of nausea. Patient called EMS. She has had prior history of syncope. She has had a slight cough that started yesterday that is been nonproductive. She had no fever. She had no vomiting or diarrhea. Patient's had prior hyst erectomy therefore she states she cannot be . Patient denies any chest pain or palpitations. [facility] Medical History Bipolar disorder Chronic pain History of renal calculi History of uterine cancer (2006) Hyperlipidemia Incomplete right bundle branch block Lung nodule Migraine Obesity Ovarian cyst Pancreatitis Right tubo-ovarian mass Ureteral stone with hydronephrosis Home Medications prazosin 1 mg capsule 1 mg PO QHS 03/26/20 [History Last Taken Unknown] gabapentin 400 mg capsule 800 mg PO TID 10/03/20 [History Last Taken Unknown] hydroxyzine HCl 50 mg tablet 50 mg PO QHS 10/03/20 [History Last Taken Unknown] omeprazole magnesium 20 mg tablet,delayed release 20 mg PO DAILY 10/03/20 [History Last Taken Unknown] promethazine 25 mg tablet 25 mg PO TID PRN nausea and vomiting #14 tabs 06/14/21 [Rx Last Taken Unknown] ondansetron 4 mg disintegrating tablet 4 mg PO Q8H PRN nausea and vomiting #10 tabs 04/10/22 [Rx Last Taken Unknown] quetiapine 50 mg tablet 50 mg PO QHS 09/07/22 [History Last Taken Unknown] lorazepam 1 mg tablet (Ativan) 1 mg PO DAILY 02/10/23 [History Last Taken Unknown] hydrocodone-acetaminophen 5-325mg 5mg-325mg 1 tab PO Q6H PRN PRN Pain 3 days #10 TABLETS 04/01/23 [Rx Last Taken Unknown] ondansetron 4 mg disintegrating tablet 4 mg PO Q8H PRN PRN Nausea #10 tabs 04/01/23 [Rx Last Taken Unknown] clindamycin HCl 150 mg capsule 300 mg (2 x 150 mg) PO 4X/DAY 10 days #80 CAPSULES 06/06/23 [Rx Last Taken Unknown] clindamycin HCl 150 mg capsule (Cleocin HCl) 300 mg (2 x 150 mg) PO Q8H 10 days #60 caps 06/06/23 [Rx Last Taken Unknown] Allergy/AdvReac Type Severity Reaction Status Date / Time Iodinated Contrast Media [CT] Allergy Anaphylaxis Verified 06/11/23 16:29 ketorolac tromethamine Allergy Rash Verified 06/11/23 16:29 [From Toradol] metronidazole [From Flagyl] Allergy Hives Verified 06/11/23 16:29 Penicillins Allergy Hives Verified 06/11/23 16:29 dicyclomine [From Bentyl] AdvReac Mild Hives Verified 06/11/23 16:29 aspirin AdvReac Upset Verified 06/11/23 16:29 Stomach Family History Aunt Breast cancer Grandfather CAD (coronary artery disease) Father Heart disease, Onset Age: 73 Triple bypass Mother Heart disease, Onset Age: 62 Other Diabetes Surgical History H/O ovarian cystectomy (09/2019) History of bilateral oophorectomy History of hysterectomy History of tubal ligation Social History household members: none Smoking Status: Current every day smoker tobacco type: cigarettes Tobacco: How many years used: 15 substance use type: does not use ROS ROS ED ROS Narrative Syncope Review of Systems ROS Unobtainable: other Constitutional Constitutional ED: Reports lethargy; Denies chills, fever(s), sweats or weight loss Eyes Eyes: Denies blurry vision, change in vision or diplopia ENT ENT ED: Denies rhinorrhea or sore throat Cardiovascular Cardiovascular: Denies chest pain, orthopnea or racing heartbeat Respiratory/Chest Respiratory/Chest: Reports cough; Denies dyspnea, dyspnea on exertion, orthopnea or sputum Gastrointestinal Gastrointestinal: Denies abdominal pain, diarrhea, nausea or vomiting Genitourinary Genitourinary ED: Denies dysuria, hematuria or urinary frequency Musculoskeletal Musculoskeletal: Denies arthralgias, back pain, myalgias or neck pain Integumentary Denies abscess, Abrasions or rash Neurologic Neurologic: Denies headache(s) or weakness Psychiatric Psychiatric: Denies anxiety, depression or suicidal thoughts Endocrine Endocrinology: Denies polydipsia, polyphagia or polyuria Hematologic/Lymphatic Hematologic/Lymphatic: Denies easy bleeding, easy bruising or lymphadenopathy Allergic/Immunologic Allergic/Immunologic ED: Denies mouth swelling, tongue swelling or urticaria EXAM Physical Exam Const Vital Signs: 07/22/23 15:43 07/22/23 15:46 07/22/23 16:54 Temperature 98.1 F Temperature Source Oral Pulse Rate 87 Pulse Rate [Lying] 69 Pulse Rate [Sitting (for 1 minute prior to obtaining)] 89 Respiratory Rate 18 Respiratory Effort Normal Non-Labored Respiratory Pattern Normal Blood Pressure 125/69 H Blood Pressure [Lying] 148/132 H Blood Pressure [Sitting (for 1 minute prior to obtaining)] 138/81 H Blood Pressure [Standing (for 1 minute prior to obtaining)] 114/78 Blood Pressure Mean 87 Blood Pressure Mean [Lying] 137 Blood Pressure Mean [Sitting (for 1 minute prior to obtaining)] 100 Blood Pressure Mean [Standing (for 1 minute prior to obtaining)] 90 Pulse Ox 96 Oxygen Delivery Method Room Air Positive well nourished and well developed General Appearance ED: well developed and NAD HEENT Reports TM's clear and moist mucous membranes normocephalic and atraumatic; Negative for trauma or tenderness Tympanic Membrane ED: Yes TM's clear Eyes PERRL and EOMs intact bilaterally General Eye ED: Negative for pale conjunctiva or scleral icterus Neck no lymphadenopathy, supple and no JVD Neck Narrative: Patient with diffuse tenderness over the C-spine. No bony step-offs. Good range of motion. General: tenderness Chest Wall inspection of chest normal and palpation of chest normal Chest: Negative for tenderness Resp normal respiratory effort and clear to auscultation bilaterally Effort and Inspection: Negative for respiratory distress or pain with movement Auscultation: Negative for rhonchi, wheezes or diminished lung sounds Cardio regular rate, regular rhythm, S1 normal heart sound, S2 normal heart sound and no murmurs Peripheral Pulses: pulses 2+ throughout GI normal to inspection, nondistended, normoactive bowel sounds, soft to palpation, non-tender, non-distended and no masses Back/Spine no CVA tenderness and no thoracic nor lumbar tenderness Extremity normal to inspection General Extremety ED: Negative for edema General Extremity: Negative for edema Neuro oriented x3, CN's II-XII intact bilaterally, no sensory deficits noted and gait normal Sensorium / Orientation: awake, alert, oriented to person, oriented to place and oriented to time Motor Exam: strength 5/5 throughout and strength abnormal Psych mental status grossly normal Skin no rashes or lesions noted and no wounds MDM MDM MDM Narrative Medical decision making narrative: Patient presents to the emergency department with a syncopal episode. She has history of syncopal episodes. She denies chest pain or palpitations. In the differential would be vasovagal episode versus orthostatic syncope. Patient has had a slight cough that started yesterday. IV line established on arrival. CBC with differential obtained showed a white count of 8.3 with hemoglobin 12.7 and platelet count of 232. Chemistries unremarkable. Patient was given a liter of the same fluid bolus. Orthostatic vital signs obtained patient was symptomatic and she did have a drop in blood pressure of [address] brain and CT C-spine obtained were unremarkable. Patient had a COVID and flu test which were negative. Chest x-ray on my interpretation did not show anything acute. Patient clinically looks well otherwise. Will discharge to home. Lab Data Attestation: I reviewed the patient's lab results. Labs: Laboratory Results - last 24 hr 07/22/23 16:17 WBC 8.3 RBC 4.19 L Hgb 12.7 Hct 38.9 MCV 92.8 MCH 30.3 MCHC 32.6 RDW Std Deviation 43.5 RDW Coeff of Shun 12.9 Plt Count 232 MPV 10.8 Immature Gran % (Auto) 0.800 Neut % (Auto) 52.5 Lymph % (Auto) 36.9 [place] % (Auto) 6.0 Eos % (Auto) 3.2 Baso % (Auto) 0.6 Absolute Neuts (auto) 4.4 Absolute Lymphs (auto) 3.07 Nucleated RBC % 0 Sodium 138 Potassium 3.7 Chloride 107 Carbon Dioxide 30.0 Anion Gap 1 L BUN 14 Creatinine 1.14 H Estim Creat Clear Calc 48.02 Est GFR (MDRD) Af Amer 67 Est GFR (MDRD) Non-Af 55 L BUN/Creatinine Ratio 12.3 Glucose 119 H Calcium 8.8 Radiography Diagnostic Testing: Clinical Impression(s) from Imaging Studies Brain CT 07/22/23 15:58 IMPRESSION: Partial empty sella deformity likely of no significance. No acute bleed or other significant intracranial abnormality Electronically Signed: Marcelino Ahmadi MD at 16:55 EST , Cervical Spine CT 07/22/23 15:58 IMPRESSION: Normal unenhanced CT examination of the cervical spine. Electronically Signed: Marcelino Ahmadi MD at 16:56 EST , Chest X-Ray 07/22/23 16:29 IMPRESSION: Elevated right hemidiaphragm and mild subsegmental atelectasis or infiltrate in the right lower lobe. Electronically Signed: Marcelino Ahmadi MD at 16:52 EST , 1 view chest x-ray obtained interpreted by myself as no evidence of infiltrate or acute process. Radiology felt there was a elevated right hemidiaphragm with subsegmental atelectasis or infiltrate right lower lobe. Clinically I do not feel patient has pneumonia. EKG Initial EKG: Attestation: I personally reviewed and interpreted this EKG as follows: Comments: Sinus rhythm with rate of [address] changes Discharge Plan Triage Chief Complaint: Syncope ED Provider: Vasiliy Mcdermott Dx/Rx/DC Orders Clinical Impression: Syncope Instructions: ED Fainting, Uncertain Cause Prescriptions: No Action prazosin 1 MG capsule 1 mg PO QHS gabapentin 400 MG capsule 800 mg PO TID hydroxyzine HCl 50 MG tablet 50 mg PO QHS omeprazole magnesium 20 MG tablet,delayed release (DR/EC) 20 mg PO DAILY promethazine 25 mg tablet 25 mg PO TID PRN (Reason: nausea and vomiting) Qty: 14 0RF ondansetron 4 mg tablet,disintegrating 4 mg PO Q8H PRN (Reason: nausea and vomiting) Qty: 10 0RF quetiapine 50 mg tablet 50 mg PO QHS Patient Comments: TAKE ONE TO TWO TABLETS BY MOUTH AT BEDTIME lorazepam [Ativan] 1 mg Tablet 1 mg PO DAILY hydrocodone-acetaminophen 5-325 mg tablet 1 tab PO Q6H PRN PRN (Reason: Pain) 3 Days Qty: 10 0RF ondansetron 4 mg tablet,disintegrating 4 mg PO Q8H PRN PRN (Reason: Nausea) Qty: 10 0RF clindamycin HCl 150 mg capsule 300 mg PO 4X/DAY 10 Days Qty: 80 0RF clindamycin HCl [Cleocin HCl] 150 mg capsule 300 mg PO Q8H 10 Days Qty: 60 0RF Primary Care Provider: Michell Baca Referrals: Michell Baca MD [Primary Care Provider] - 3-5 Days Disposition Disposition: Home, Self Care
--- NOTE | 2023-07-22 16:15 | EKG12_ITS ---
Test Reason : SYNCOPE Blood Pressure : / mmHG Vent. Rate : 092 BPM Atrial Rate : 092 BPM P-R Int : 170 ms QRS Dur : 084 ms QT Int : 376 ms P-R-T Axes : 052 -89 024 degrees QTc Int : 464 ms Normal sinus rhythm Left axis deviation Low voltage QRS Nonspecific T wave abnormality Prolonged QT Abnormal ECG Confirmed by SHOLA ALVARADO, GIO ([id number]), photography editor CARLOS MANUEL ROMAN ([id number]) on 07/27/2023 10:36:03 AM Referred By: Confirmed By:JOSIE JOLLEY MD
--- NOTE | 2023-07-22 16:29 | RAD_ITS ---
STUDY: X-RAY CHEST REASON FOR EXAM: Female, 42 years old. cough TECHNIQUE: AP portable COMPARISON: June 11, 2023 FINDINGS: Elevated right hemidiaphragm and mild subsegmental atelectasis or infiltrate in the right lower lobe. There is no demonstrated pleural abnormality. Normal size heart. Normal mediastinum and [place]. Normal visualized pulmonary arteries. Normal visualized aortic arch and descending thoracic aorta. Normal visualized thoracic spine. Normal visualized ribs, clavicles, and shoulders. There is no demonstrated abnormality of the visualized soft tissue structures of the upper abdomen. RAD/Chest 1 View (Portable) IMPRESSION: Elevated right hemidiaphragm and mild subsegmental atelectasis or infiltrate in the right lower lobe. Electronically Signed: Marcelino Ahmadi MD at 16:52 EST ,
[2023-07-22 16:31] LABS: Absolute Lymphocyte Count 3.07 X10^3/uL (0.83-4.51); Absolute Neutrophil Count 4.4 X10^3/uL (2.0-7.7); Basophil# 0.05 X10^3/uL; Basophil% 0.6 % (0-1); Eosinophil# 0.27 X10^3/uL; Eosinophils% 3.2 % (0-5); Hematocrit 38.9 % (37-47); Hemoglobin 12.7 g/dL (12.0-15.0); Lymphocyte # 3.07 X10^3/ul (0.83-4.51); Lymphocyte % 36.9 % (19-41); Mean Corp Hgb Conc 32.6 g/dL (32-36); Mean Corpuscular Hgb 30.3 pg (27.0-32.0); Mean Corpuscular Volume 92.8 fL (81-99); Mean Platelet Vol. 10.8 fl (6.2-12.0); NRBC Flagged by Analyzer 0 % (0-5); Neutrophil # 4.37 X10^3/uL (2.7-7.7); Neutrophil % 52.5 % (47-70); Platelet Count 232 K/mm3 (150-450); RBC Distribution Width CV 12.9 % (11.6-14.6); RBC Distribution Width SD 43.5 fl (35.1-43.9); Red Blood Count 4.19 M/mm3 (4.2-5.4); White Blood Count 8.3 K/mm3 (4.4-11.0)
[2023-07-22 16:40] LABS: Anion Gap 1 (5-15); BUN 14 mg/dL (7-18); BUN/Creat Ratio 12.3 RATIO (10-20); Calcium,Total 8.8 mg/dL (8.5-10.1); Chloride 107 mmol/L (98-107); Creatinine, Serum 1.14 mg/dL (0.55-1.02); EST Glomerular Filtration Rate 55 mL/min (>60); Est Glom Filt Rate - Afr Amer 67 mL/min (>60); Estimated Creatinine Clearance 48.02 ml/min; Glucose 119 mg/dL (74-106); Potassium 3.7 mmol/L (3.5-5.1); Sodium Level 138 mmol/L (136-145)
[2023-07-22 16:54] VITALS: BP 114/78; BP 138/81; BP 148/132; PULSE 69; PULSE 89
[2023-07-22] MEDS: Acetaminophen 500 MG Tablet 1000 MG PO (17:06)
[2023-07-22] MEDS: 0.9% Normal Saline (1000mL) 1,000 ML 999 ML IV (17:07)
[2023-07-22 17:42] VITALS: RESP 18
== END 2023-07-22 17:51 | disposition home or self-care (01) ==
PROVIDERS: Emergency Provider Emergency Medicine; PCP Internal Medicine; Visit Provider Emergency Medicine
DX: R55 Syncope and collapse (principal); F31.9 Bipolar disorder, unspecified; E78.5 Hyperlipidemia, unspecified; F17.210 Nicotine dependence, cigarettes, uncomplicated; Z90.710 Acquired absence of both cervix and uterus; Z85.42 Personal history of malignant neoplasm of other parts of uterus; Z90.6 Acquired absence of other parts of urinary tract; Z90.722 Acquired absence of ovaries, bilateral; Z98.51 Tubal ligation status
CPT/HCPCS: 70450; 71045; 72125; 80048; 85025; 87428; 93005; 96360; 99285; J7030; A4216

== ENCOUNTER 2023-09-20 07:22 | Emergency (ER) | payer MEDICAID, SELFPAY ==
[2023-09-20 07:23] VITALS: BP 139/88; PULSE 96; RESP 15; TEMP 36.2; O2SAT 99; BMI 39.2
--- NOTE | 2023-09-20 07:39 | EDS_ITS ---
HPI History of Present Illness Chief Complaint: Headache Informant: patient Onset/Context/Timing Onset: Yesterday Context: Gradual Timing: Continuous Quality -Headache: Positive for Similar Prior Headaches, Burning and Other (Pressure) Location: Generalized Worsened by: Lights, sounds Relieved by: Nothing Associated Symptoms/Injury Associated Symptoms: Positive for Nausea, Vomiting and Photophobia; Negative for Fever, Sore Throat, Sinus Pressure, Numbness, Tingling, Preceding Aura, Visual Changes, Blurred Vision or Visual Loss Injury - FAROOQ: Negative for Direct Trauma Narrative Narrative: Patient presents with headache that began yesterday. Patient states she woke up with a headache yesterday. Patient states she was able to do her normal activities yesterday and go to work. Patient states she did leave work early yesterday. Patient states that when she woke up today her headache was worse. Patient states her headache is generalized. Patient describes it as burning and pressure. Patient states nothing makes it better and nothing makes it worse. Patient admits to some nausea and vomiting with it. Patient also admits to some photophobia. Patient denies any fevers or chills. Patient denies any paresthesias or weakness. Patient denies any visual changes, scotoma, or preceding aura. Patient states she does have a history of migraine headaches. [facility] Medical History Bipolar disorder Chronic pain History of renal calculi History of uterine cancer (2006) Hyperlipidemia Incomplete right bundle branch block Lung nodule Migraine Obesity Ovarian cyst Pancreatitis Right tubo-ovarian mass Ureteral stone with hydronephrosis Home Medications prazosin 1 mg capsule 1 mg PO QHS 03/26/20 [History Last Taken Unknown] gabapentin 400 mg capsule 800 mg PO TID 10/03/20 [History Last Taken Unknown] hydroxyzine HCl 50 mg tablet 50 mg PO QHS 10/03/20 [History Last Taken Unknown] omeprazole magnesium 20 mg tablet,delayed release 20 mg PO DAILY 10/03/20 [History Last Taken Unknown] promethazine 25 mg tablet 25 mg PO TID PRN nausea and vomiting #14 tabs 06/14/21 [Rx Last Taken Unknown] ondansetron 4 mg disintegrating tablet 4 mg PO Q8H PRN nausea and vomiting #10 tabs 04/10/22 [Rx Last Taken Unknown] quetiapine 50 mg tablet 50 mg PO QHS 09/07/22 [History Last Taken Unknown] lorazepam 1 mg tablet (Ativan) 1 mg PO DAILY 02/10/23 [History Last Taken Unknown] hydrocodone-acetaminophen 5-325mg 5mg-325mg 1 tab PO Q6H PRN PRN Pain 3 days #10 TABLETS 04/01/23 [Rx Last Taken Unknown] ondansetron 4 mg disintegrating tablet 4 mg PO Q8H PRN PRN Nausea #10 tabs 04/01/23 [Rx Last Taken Unknown] clindamycin HCl 150 mg capsule 300 mg (2 x 150 mg) PO 4X/DAY 10 days #80 CAPSULES 06/06/23 [Rx Last Taken Unknown] clindamycin HCl 150 mg capsule (Cleocin HCl) 300 mg (2 x 150 mg) PO Q8H 10 days #60 caps 06/06/23 [Rx Last Taken Unknown] Allergy/AdvReac Type Severity Reaction Status Date / Time Iodinated Contrast Media [CT] Allergy Anaphylaxis Verified 09/20/23 07:25 ketorolac tromethamine Allergy Rash Verified 09/20/23 07:25 [From Toradol] metronidazole [From Flagyl] Allergy Hives Verified 09/20/23 07:25 Penicillins Allergy Hives Verified 09/20/23 07:25 dicyclomine [From Bentyl] AdvReac Mild Hives Verified 09/20/23 07:25 aspirin AdvReac Upset Verified 09/20/23 07:25 Stomach Family History Aunt Breast cancer Grandfather CAD (coronary artery disease) Father Heart disease, Onset Age: 73 Triple bypass Mother Heart disease, Onset Age: 62 Other Diabetes Surgical History H/O ovarian cystectomy (09/2019) History of bilateral oophorectomy History of hysterectomy History of tubal ligation Social History household members: none Smoking Status: Current every day smoker tobacco type: cigarettes Tobacco: How many years used: 15 substance use type: does not use ROS ROS ED Constitutional Constitutional ED: Denies chills or fever(s) Eyes Eyes: Denies blurry vision or change in vision ENT ENT ED: Denies rhinorrhea or sore throat Cardiovascular Cardiovascular: Denies chest pain or palpitations Respiratory/Chest Respiratory/Chest: Denies cough or dyspnea Gastrointestinal Gastrointestinal: Reports nausea and vomiting Genitourinary Genitourinary ED: Denies dysuria or hematuria Musculoskeletal Musculoskeletal: Denies back pain or neck pain Integumentary Denies abscess or rash Neurologic Neurologic: Reports headache(s); Denies weakness Allergic/Immunologic Allergic/Immunologic ED: Denies mouth swelling or urticaria EXAM Physical Exam Const Vital Signs: 09/20/23 07:23 Temperature 97.2 F L Temperature Source Temporal Pulse Rate 96 Respiratory Rate 15 Blood Pressure 139/88 H Blood Pressure Mean 105 Pulse Ox 99 Oxygen Delivery Method Room Air Positive well nourished and well developed General Appearance ED: well developed and NAD HEENT Reports moist mucous membranes Neck supple, no meningeal signs and no JVD Resp normal respiratory effort and clear to auscultation bilaterally Cardio regular rate and regular rhythm GI non-tender and non-distended Palpation: soft Extremity normal to inspection and full ROM Neuro oriented x3, CN's II-XII intact bilaterally and no sensory deficits noted Parthenon Coma Scale: document GCS findings Spontaneous Obeys Commands Oriented 15 Sensorium / Orientation: awake and alert Speech: speech normal Motor Exam: strength 5/5 throughout Psych mental status grossly normal MDM MDM MDM Narrative Medical decision making narrative: Differential diagnosis includes migraine headache, tension headache, and chronic pain disorder. Treatment and Re-Evaluation Narrative: Patient was given IV fluids, Reglan, and Benadryl. Patient states she had no relief with this. Patient wanted to leave AGAINST MEDICAL ADVICE. Patient was advised of the risks and benefits of leaving AGAINST MEDICAL ADVICE. Patient was still signed out AGAINST MEDICAL ADVICE. Patient was instructed to follow- up with her primary care physician in 5 to 7 days. Discharge Plan Triage Chief Complaint: Headache ED Provider: Ran Torres Dx/Rx/DC Orders Clinical Impression: Headache, migraine, Nausea & vomiting Prescriptions: No Action prazosin 1 MG capsule 1 mg PO QHS gabapentin 400 MG capsule 800 mg PO TID hydroxyzine HCl 50 MG tablet 50 mg PO QHS omeprazole magnesium 20 MG tablet,delayed release (DR/EC) 20 mg PO DAILY promethazine 25 mg tablet 25 mg PO TID PRN (Reason: nausea and vomiting) Qty: 14 0RF ondansetron 4 mg tablet,disintegrating 4 mg PO Q8H PRN (Reason: nausea and vomiting) Qty: 10 0RF quetiapine 50 mg tablet 50 mg PO QHS Patient Comments: TAKE ONE TO TWO TABLETS BY MOUTH AT BEDTIME lorazepam [Ativan] 1 mg Tablet 1 mg PO DAILY hydrocodone-acetaminophen 5-325 mg tablet 1 tab PO Q6H PRN PRN (Reason: Pain) 3 Days Qty: 10 0RF ondansetron 4 mg tablet,disintegrating 4 mg PO Q8H PRN PRN (Reason: Nausea) Qty: 10 0RF clindamycin HCl 150 mg capsule 300 mg PO 4X/DAY 10 Days Qty: 80 0RF clindamycin HCl [Cleocin HCl] 150 mg capsule 300 mg PO Q8H 10 Days Qty: 60 0RF Primary Care Provider: Michell Baca Referrals: Michell Baca MD [Primary Care Provider] - 5-7 Days Disposition Disposition: Against Medical Advice
[2023-09-20] MEDS: Metoclopramide 10 MG/2 ML Vial IV (09:04)
[2023-09-20] MEDS: 0.9% Normal Saline (1000mL) 1,000 ML 999 ML IV (09:04)
[2023-09-20] MEDS: DiphenhydrAMINE 50 MG/ML Syringe 25 MG IV (09:04)
--- NOTE | 2023-09-20 10:20 | ED.RN ---
[address]MA[address] Dr[address] Torres aware. Paperwork signed.
== END 2023-09-20 09:55 | disposition left against medical advice (07) ==
PROVIDERS: Emergency Provider Emergency Medicine; PCP Internal Medicine; Visit Provider Emergency Medicine
DX: G43.909 Migraine, unspecified, not intractable, without status migrainosus (principal); F31.9 Bipolar disorder, unspecified; Z53.29 Procedure and treatment not carried out because of patient's decision for other reasons; F17.210 Nicotine dependence, cigarettes, uncomplicated; R11.2 Nausea with vomiting, unspecified; E78.5 Hyperlipidemia, unspecified; Z90.6 Acquired absence of other parts of urinary tract; Z90.722 Acquired absence of ovaries, bilateral; Z90.710 Acquired absence of both cervix and uterus
CPT/HCPCS: 96361; 96374; 96375; 99283; J7030; A4216

== ENCOUNTER 2023-10-24 20:01 | Emergency (ER) | payer MEDICAID, SELFPAY ==
[2023-10-24 20:01] VITALS: BP 139/85; PULSE 117; RESP 25; TEMP 36.1; O2SAT 98; BMI 40.2
--- NOTE | 2023-10-24 20:44 | EDS_ITS ---
HPI History of Present Illness Chief Complaint: Lower Extremity Injury Informant: patient Narrative Narrative: Patient presents with right knee pain. She was bending down at work. While bent down she slipped and her knee hit into a metal pole that is part of the equipment. She has pain in the front of the knee. It spreads above the elbow. She has a history of arthritis in her knees but no prior surgeries. She never hit her head. She is not on blood thinners. [facility] Medical History Bipolar disorder Chronic pain History of renal calculi History of uterine cancer (2006) Hyperlipidemia Incomplete right bundle branch block Lung nodule Migraine Obesity Ovarian cyst Pancreatitis Right tubo-ovarian mass Ureteral stone with hydronephrosis Home Medications prazosin 1 mg capsule 1 mg PO QHS 03/26/20 [History Last Taken Unknown] gabapentin 400 mg capsule 800 mg PO TID 10/03/20 [History Last Taken Unknown] hydroxyzine HCl 50 mg tablet 50 mg PO QHS 10/03/20 [History Last Taken Unknown] omeprazole magnesium 20 mg tablet,delayed release 20 mg PO DAILY 10/03/20 [History Last Taken Unknown] promethazine 25 mg tablet 25 mg PO TID PRN nausea and vomiting #14 tabs 06/14/21 [Rx Last Taken Unknown] ondansetron 4 mg disintegrating tablet 4 mg PO Q8H PRN nausea and vomiting #10 tabs 04/10/22 [Rx Last Taken Unknown] quetiapine 50 mg tablet 50 mg PO QHS 09/07/22 [History Last Taken Unknown] lorazepam 1 mg tablet (Ativan) 1 mg PO DAILY 02/10/23 [History Last Taken Unknown] hydrocodone-acetaminophen 5-325mg 5mg-325mg 1 tab PO Q6H PRN PRN Pain 3 days #10 TABLETS 04/01/23 [Rx Last Taken Unknown] ondansetron 4 mg disintegrating tablet 4 mg PO Q8H PRN PRN Nausea #10 tabs [Rx Last Taken Unknown] clindamycin HCl 150 mg capsule 300 mg (2 x 150 mg) PO 4X/DAY 10 days #80 CAPSULES 06/06/23 [Rx Last Taken Unknown] clindamycin HCl 150 mg capsule (Cleocin HCl) 300 mg (2 x 150 mg) PO Q8H 10 days #60 caps 06/06/23 [Rx Last Taken Unknown] Allergy/AdvReac Type Severity Reaction Status Date / Time Iodinated Contrast Media [CT] Allergy Anaphylaxis Verified 10/24/23 20:03 ketorolac tromethamine Allergy Rash Verified 10/24/23 20:03 [From Toradol] metronidazole [From Flagyl] Allergy Hives Verified 10/24/23 20:03 Penicillins Allergy Hives Verified 10/24/23 20:03 dicyclomine [From Bentyl] AdvReac Mild Hives Verified 10/24/23 20:03 aspirin AdvReac Upset Verified 10/24/23 20:03 Stomach Family History Aunt Breast cancer Grandfather CAD (coronary artery disease) Father Heart disease, Onset Age: 73 Triple bypass Mother Heart disease, Onset Age: 62 Other Diabetes Surgical History H/O ovarian cystectomy (09/2019) History of bilateral oophorectomy History of hysterectomy History of tubal ligation Social History household members: none Smoking Status: Current every day smoker tobacco type: cigarettes Tobacco: How many years used: 15 substance use type: does not use ROS ROS ED Constitutional Constitutional ED: Denies chills or fever(s) Respiratory/Chest Respiratory/Chest: Denies cough or dyspnea Gastrointestinal Gastrointestinal: Denies nausea or vomiting Musculoskeletal Musculoskeletal: Reports arthralgias; Denies back pain, myalgias or neck pain Integumentary Denies abscess, Abrasions or rash Neurologic Neurologic: Reports other Details: Patient states that the pain spreads up and down but it is not actual paresthesias. There is no numbness. ; Denies paresthesias or weakness Hematologic/Lymphatic Hematologic/Lymphatic: Denies easy bleeding or easy bruising EXAM Physical Exam Narrative Exam Narrative: Patient is awake and alert. She seems very anxious about this. But in no acute distress. HEENT shows no trauma. Cardiorespiratory shows easy unlabored breathing. She does intermittently hyperventilate a bit. But her saturations are normal and her lungs are clear. Abdomen is benign. Extremities were fully exposed. There is no visible contusion that is developed at this time. There is no abrasion. No erythema. No effusion. There is anterior patellar tenderness. She was concerned because her knee swelled up. But it is the same as the other side. I do not see any local swelling yet although she may have bruising and swelling develop. Const Vital Signs: 10/24/23 20:01 Temperature 97 F L Temperature Source Temporal Pulse Rate 117 H Respiratory Rate 25 H Blood Pressure 139/85 H Blood Pressure Mean 103 Pulse Ox 98 Oxygen Delivery Method Room Air MDM MDM MDM Narrative Medical decision making narrative: My independent interpretation of the patient's 4 view x-ray of her right knee done for trauma shows no sign of acute fracture or dislocation. Final reading is normal x-ray examination of the knee. Patient did request some Tylenol which we gave here. I think Tylenol should be appropriate. She has GI upset with aspirin. She has had a rash with ketorolac. I do not think her injury requires narcotics. I would also be concerned if she is on gabapentin and benzodiazepines chronically and this combination could lead to respiratory depression. I also encouraged ice and rest. Radiography Diagnostic Testing: Clinical Impression(s) from Imaging Studies Knee X-Ray 10/24/23 21:00 IMPRESSION: Normal x-ray examination of the knee. Electronically Signed: Byron Patricio MD at 21:26 EST , Discharge Plan Triage Chief Complaint: Lower Extremity Injury ED Provider: Rob Cassidy Dx/Rx/DC Orders Clinical Impression: Contusion of right knee Instructions: ED Contusion, Lower Extremity Prescriptions: No Action prazosin 1 MG capsule 1 mg PO QHS gabapentin 400 MG capsule 800 mg PO TID hydroxyzine HCl 50 MG tablet 50 mg PO QHS omeprazole magnesium 20 MG tablet,delayed release (DR/EC) 20 mg PO DAILY promethazine 25 mg tablet 25 mg PO TID PRN (Reason: nausea and vomiting) Qty: 14 0RF ondansetron 4 mg tablet,disintegrating 4 mg PO Q8H PRN (Reason: nausea and vomiting) Qty: 10 0RF quetiapine 50 mg tablet 50 mg PO QHS Patient Comments: TAKE ONE TO TWO TABLETS BY MOUTH AT BEDTIME lorazepam [Ativan] 1 mg Tablet 1 mg PO DAILY hydrocodone-acetaminophen 5-325 mg tablet 1 tab PO Q6H PRN PRN (Reason: Pain) 3 Days Qty: 10 0RF ondansetron 4 mg tablet,disintegrating 4 mg PO Q8H PRN PRN (Reason: Nausea) Qty: 10 0RF clindamycin HCl 150 mg capsule 300 mg PO 4X/DAY 10 Days Qty: 80 0RF clindamycin HCl [Cleocin HCl] 150 mg capsule 300 mg PO Q8H 10 Days Qty: 60 0RF Stand Alone Forms: ED Work / School Excuse Primary Care Provider: Michell Baca Referrals: Michell Baca MD [Primary Care Provider] - 1 Week if not improving Activity Restrictions/Additional Instructions: Use Tylenol, ice, rest for discomfort. You can use Aleve or Motrin if you can tolerate them. Disposition Disposition: Home, Self Care
--- NOTE | 2023-10-24 21:00 | RAD_ITS ---
STUDY: X-RAY - RIGHT KNEE REASON FOR EXAM: Female, 43 years old. trauma TECHNIQUE: 4 view(s) of the knee. COMPARISON: None. FINDINGS: Normal visualized distal femur. Normal visualized proximal tibia and fibula. Normal proximal tibiofibular articulation. There is no demonstrated fracture. Normal medial femorotibial compartment. Normal lateral femorotibial compartment. Normal patellofemoral articulation. There is no demonstrated joint effusion. The soft tissue structures are unremarkable. RAD/Knee 4 or More Views IMPRESSION: Normal x-ray examination of the knee. Electronically Signed: Byron Patricio MD at 21:26 EST ,
[2023-10-24] MEDS: Acetaminophen 500 MG Tablet 1000 MG PO (21:51)
== END 2023-10-24 21:53 | disposition home or self-care (01) ==
LOC: ED 20:49
PROVIDERS: Emergency Provider Emergency Medicine; PCP Internal Medicine; Visit Provider Emergency Medicine
DX: S80.01XA Contusion of right knee, initial encounter (principal); F31.9 Bipolar disorder, unspecified; F17.210 Nicotine dependence, cigarettes, uncomplicated; W22.09XA Striking against other stationary object, initial encounter; Y92.89 Other specified places as the place of occurrence of the external cause; E78.5 Hyperlipidemia, unspecified; Z79.899 Other long term (current) drug therapy; Z90.6 Acquired absence of other parts of urinary tract; Z90.722 Acquired absence of ovaries, bilateral; Z90.710 Acquired absence of both cervix and uterus; Z98.51 Tubal ligation status
CPT/HCPCS: 73564; 99282

== ENCOUNTER 2023-10-25 16:29 | Emergency (ER) | payer MEDICAID, SELFPAY ==
[2023-10-25 16:30] VITALS: PULSE 85; RESP 16; TEMP 36.8; O2SAT 100; BMI 35.9
[2023-10-25] MEDS: HYDROcodone Bitartrate/Apap 5/325 Tablet PO (17:06)
--- NOTE | 2023-10-25 17:16 | EX.ED.DYSGE1 ---
[facility] <SVETA Stout - Last Filed: 10/25/23 17:24> History of Present Illness Chief Complaint: Lower Extremity Injury Narrative Narrative: Patient is a 43-year-old female with history of kidney stones, renal cyst who presents to the emergency department with a reevaluation for her right knee pain. Patient states last evening she was working at [email or web address] when she knelt down striking a bar on her right knee. Patient is the pain was severe and she was here last night received for x-rays that were negative. She states the pain is worse today, she thinks it is more swollen she is here for reevaluation PFSH <SVETA Stout - Last Filed: 10/25/23 17:24> [facility] Medical History Bipolar disorder Chronic pain History of renal calculi History of uterine cancer (2006) Hyperlipidemia Incomplete right bundle branch block Lung nodule Migraine Obesity Ovarian cyst Pancreatitis Right tubo-ovarian mass Ureteral stone with hydronephrosis Home Medications prazosin 1 mg capsule 1 mg PO QHS 03/26/20 [History Last Taken Unknown] gabapentin 400 mg capsule 800 mg PO TID 10/03/20 [History Last Taken Unknown] hydroxyzine HCl 50 mg tablet 50 mg PO QHS 10/03/20 [History Last Taken Unknown] omeprazole magnesium 20 mg tablet,delayed release 20 mg PO DAILY 10/03/20 [History Last Taken Unknown] promethazine 25 mg tablet 25 mg PO TID PRN nausea and vomiting #14 tabs 06/14/21 [Rx Last Taken Unknown] ondansetron 4 mg disintegrating tablet 4 mg PO Q8H PRN nausea and vomiting #10 tabs 04/10/22 [Rx Last Taken Unknown] quetiapine 50 mg tablet 50 mg PO QHS 09/07/22 [History Last Taken Unknown] lorazepam 1 mg tablet (Ativan) 1 mg PO DAILY 02/10/23 [History Last Taken Unknown] ondansetron 4 mg disintegrating tablet 4 mg PO Q8H PRN PRN Nausea #10 tabs 04/01/23 [Rx Last Taken Unknown] aripiprazole 10 mg tablet 10 mg PO DAILY 10/25/23 [History Last Taken Unknown] hydrocodone-acetaminophen 5-325mg 5mg-325mg 1 tab PO Q4H PRN PRN Pain 3 days #8 TABLETS 10/25/23 [Rx Last Taken Unknown] lorazepam 0.5 mg tablet 0.5 mg PO DAILY PRN anxiety 10/25/23 [History Last Taken Unknown] Allergy/AdvReac Type Severity Reaction Status Date / Time Iodinated Contrast Media [CT] Allergy Anaphylaxis Verified 10/25/23 16:32 ketorolac tromethamine Allergy Rash Verified 10/25/23 16:32 [From Toradol] metronidazole [From Flagyl] Allergy Hives Verified 10/25/23 16:32 Penicillins Allergy Hives Verified 10/25/23 16:32 dicyclomine [From Bentyl] AdvReac Mild Hives Verified 10/25/23 16:32 aspirin AdvReac Upset Verified 10/25/23 16:32 Stomach Family History Aunt Breast cancer Grandfather CAD (coronary artery disease) Father Heart disease, Onset Age: 73 Triple bypass Mother Heart disease, Onset Age: 62 Other Diabetes Surgical History H/O ovarian cystectomy (09/2019) History of bilateral oophorectomy History of hysterectomy History of tubal ligation Social History household members: none Smoking Status: Current every day smoker tobacco type: cigarettes Tobacco: How many years used: 15 substance use type: does not use ROS <SVETA Stout - Last Filed: 10/25/23 17:24> [facility] ROS Narrative Constitutional: Negative for fever, chills, weight loss, weakness Eyes: Negative for vision loss, vision change, double vision ENT: Negative for any sore throat, ear pain, congestion Cardiovascular: Negative for any chest pain, tightness, palpitations Respiratory: Negative for any cough, sputum production, hemoptysis, dyspnea, dyspnea on exertion, orthopnea Gastrointestinal: Negative for any abdominal pain, nausea, vomiting, diarrhea, constipation, blood in stool, blood in vomit : Negative for any urinary frequency, dysuria, retention, blood in urine Muscle skeletal: Negative for any neck pain, back pain. Positive for right knee pain Neurological: Negative for any headache, syncope, dizziness Skin: Negative for any rashes, itching, abrasions, lacerations Psychiatric: Negative for any depression, anxiety, stress, suicidal ideation, homicidal ideation Hematologic: Negative for any excessive bruising, easy bleeding EXAM <SVETA Stout - Last Filed: 10/25/23 17:24> Physical Exam Narrative Exam Narrative: Vital signs reviewed. HEET: Head normocephalic atraumatic, TMs clear bilaterally. Posterior pharynx is clear, moist mucous membranes. Nares clear bilaterally. Neck: Supple with no lymphadenopathy or tenderness. No signs of meningismus. Cardiac: Regular rate and rhythm no murmurs gallops or rubs, equal peripheral pulses bilaterally. Respiratory: Lungs clear to auscultation bilaterally. No chest tenderness. Abdomen: Soft, nontender, nondistended. No abdominal bruit or pulsatile masses. No hepatosplenomegaly Extremities: No peripheral edema, no signs of gross trauma or deformity. Active full range of motion of all extremities. Patient's right knee appears unremarkable, there is no edema, there is no erythema. Patient does have significant pain, intact extensor mechanism. Patient does have some pain out of portion however there is no redness or swelling. +2 pedal pulse. Neuro: Cranial nerves II through XII intact, no focal neurological deficits. Skin: Clean dry and intact with no rash, purpura, petechiae, vesicles or pustules. Backs/flank: No CVA tenderness, no midline spinal tenderness, no deformity. Psych: Normal mood and affect. No SI, HI or acute psychosis. Const Vital Signs: 10/25/23 16:30 10/25/23 17:29 Temperature 98.3 F Temperature Source Temporal Pulse Rate 85 Respiratory Rate 16 Blood Pressure 113/81 H Blood Pressure Mean 91 Pulse Ox 100 Oxygen Delivery Method Room Air <Dr. Rob Cassidy MD - Last Filed: 10/26/23 01:21> Physical Exam Const Vital Signs: 10/25/23 16:30 10/25/23 17:29 Temperature 98.3 F Temperature Source Temporal Pulse Rate 85 Respiratory Rate 16 Blood Pressure 113/81 H Blood Pressure Mean 91 Pulse Ox 100 Oxygen Delivery Method Room Air MDM <SVETA Stout - Last Filed: 10/25/23 17:24> [facility] Treatment and Re-Evaluation :: Patient appears generally well, patient appears nontoxic, vital signs are stable. Presenting to the emergency department with complaints of right knee pain. Differential diagnosis includes patellar fracture, ligamental damage, contusion, effusion. I looked at the 4 view x-rays of the right knee last evening, this was negative, patient is seen with an attending that saw the patient last evening, there is also no significant change. At this time, I believe the patient is looking for pain control. I do not believe x-rays are needed again. Patient was given hydrocodone here, will be given Chemo wrap and crutches. She be given 8 [place] tabs as well as a work note. She will be given orthopedics for follow-up. All questions answered, patient stable for discharge <Dr. Rob Cassidy MD - Last Filed: 10/26/23 01:21> [facility] Narrative Medical decision making narrative: I have personally performed a face to face assessment of the patient and have reviewed the [facility] Note. I performed a substantive portion of the visit including all aspects of the following. My guzman findings include: History: Patient presents again with anterior right knee pain. There is nothing different. She states that just the pain is not relieved. No swelling. No fevers. No new areas of pain. No radicular symptoms. No back pain. Exam: No sign of swelling. No bruising is seen. There is no effusion. There is no deformity. Medical Decision Making: We will try to manage the patient's pain. Discharge Plan Triage Chief Complaint: Lower Extremity Injury ED Midlevel Provider: Carson Ramos ED Provider: Rob Cassidy Dx/Rx/DC Orders Clinical Impression: Knee contusion Instructions: ED Contusion, Lower Extremity Prescriptions: New hydrocodone-acetaminophen 5-325 mg tablet 1 tab PO Q4H PRN PRN (Reason: Pain) 3 Days Qty: 8 0RF No Action prazosin 1 MG capsule 1 mg PO QHS gabapentin 400 MG capsule 800 mg PO TID hydroxyzine HCl 50 MG tablet 50 mg PO QHS omeprazole magnesium 20 MG tablet,delayed release (DR/EC) 20 mg PO DAILY promethazine 25 mg tablet 25 mg PO TID PRN (Reason: nausea and vomiting) Qty: 14 0RF ondansetron 4 mg tablet,disintegrating 4 mg PO Q8H PRN (Reason: nausea and vomiting) Qty: 10 0RF quetiapine 50 mg tablet 50 mg PO QHS Patient Comments: TAKE ONE TO TWO TABLETS BY MOUTH AT BEDTIME lorazepam [Ativan] 1 mg Tablet 1 mg PO DAILY lorazepam 0.5 mg tablet 0.5 mg PO DAILY PRN (Reason: anxiety) Patient Comments: TAKE 1 TABLETS BY ORAL ROUTE 1 TIMES PER DAY NEEDED aripiprazole 10 mg tablet 10 mg PO DAILY Patient Comments: TAKE 1 TABLET BY MOUTH EVERY DAY ondansetron 4 mg tablet,disintegrating 4 mg PO Q8H PRN PRN (Reason: Nausea) Qty: 10 0RF Primary Care Provider: Michell Baca Referrals: Michell Baca MD [Primary Care Provider] - Valentin Carey DO [Med Staff - Active Staff] - Activity Restrictions/Additional Instructions: Ice and elevate Disposition Disposition: Home, Self Care Discharge Date/Time: 10/25/23 17:29
[2023-10-25 17:29] VITALS: BP 113/81
== END 2023-10-25 17:29 | disposition home or self-care (01) ==
PROVIDERS: Emergency Provider Emergency Medicine; PCP Internal Medicine; Visit Provider Emergency Medicine
DX: S80.00XA Contusion of unspecified knee, initial encounter (principal); F31.9 Bipolar disorder, unspecified; F17.210 Nicotine dependence, cigarettes, uncomplicated; E78.5 Hyperlipidemia, unspecified; Z87.442 Personal history of urinary calculi; W22.09XA Striking against other stationary object, initial encounter; Y93.89 Activity, other specified; Y99.0 Civilian activity done for income or pay; Y92.89 Other specified places as the place of occurrence of the external cause; Z85.42 Personal history of malignant neoplasm of other parts of uterus
CPT/HCPCS: 99283

== ENCOUNTER 2023-12-03 14:21 | Observation (INO) | payer MEDICAID, SELFPAY ==
[2023-12-03 14:23] VITALS: BP 126/67; PULSE 82; RESP 18; TEMP 36.9; O2SAT 99; BMI 39.4
[2023-12-03 15:06] LABS: Absolute Lymphocyte Count 3.76 X10^3/uL (0.83-4.51); Absolute Neutrophil Count 3.8 X10^3/uL (2.0-7.7); Basophil# 0.06 X10^3/uL; Basophil% 0.7 % (0-1); Eosinophil# 0.17 X10^3/uL; Hematocrit 40.5 % (37-47); Lymphocyte # 3.76 X10^3/ul (0.83-4.51); Lymphocyte % 44.6 % (19-41); Mean Corp Hgb Conc 32.1 g/dL (32-36); Mean Corpuscular Hgb 29.6 pg (27.0-32.0); Mean Corpuscular Volume 92.3 fL (81-99); Mean Platelet Vol. 11.3 fl (6.2-12.0); Monocyte# 0.57 X10^3/uL; Monocyte% 6.8 % (0-10); NRBC Flagged by Analyzer 0 % (0-5); Neutrophil # 3.81 X10^3/uL (2.7-7.7); Neutrophil % 45.2 % (47-70); Platelet Count 261 K/mm3 (150-450); RBC Distribution Width CV 12.4 % (11.6-14.6); RBC Distribution Width SD 42.4 fl (35.1-43.9); Red Blood Count 4.39 M/mm3 (4.2-5.4); White Blood Count 8.4 K/mm3 (4.4-11.0)
[2023-12-03 15:22] LABS: ALB/GLOB Ratio 1.1 RATIO (0.9-2.4); AST(SGOT) 20 U/L (15-37); Alanine Aminotransfer ALT/SGPT 35 U/L (13-56); Albumin, Serum 3.9 g/dL (3.2-5.0); Alkaline Phosphatase 102 U/L (45-117); Anion Gap 6 (5-15); BUN 10 mg/dL (7-18); BUN/Creat Ratio 9.8 RATIO (10-20); Calcium,Total 9.4 mg/dL (8.5-10.1); Chloride 108 mmol/L (98-107); Creatinine, Serum 1.02 mg/dL (0.55-1.02); EST Glomerular Filtration Rate 63 mL/min (>60); Est Glom Filt Rate - Afr Amer 76 mL/min (>60); Estimated Creatinine Clearance 73.96 ml/min; Globulin 3.6 g/dL (2.2-4.2); Glucose 103 mg/dL (74-106); Lipase 37 U/L (13-75); Potassium 3.6 mmol/L (3.5-5.1); Protein, Total 7.5 g/dL (6.4-8.2); Sodium Level 139 mmol/L (136-145)
[2023-12-03] MEDS: 0.9% Normal Saline (1000mL) 1,000 ML 1000 ML IV (15:31)
[2023-12-03] MEDS: Ondansetron 4 MG/2 ML Vial IV ×2 (15:31→18:11)
[2023-12-03] MEDS: Morphine 4 MG/ML Syringe IV (15:31)
--- NOTE | 2023-12-03 15:41 | EDS_ITS ---
HPI <CHAZ Ayala - Last Filed: 12/03/23 21:59> HPI - GI History of Present Illness Chief Complaint: Abd Pain Narrative Narrative: Patient presenting today due to epigastric aching abdominal pain that radiates to her left upper quadrant that she has had constantly over the past 2 weeks. She reports a history of chronic pancreatitis and thinks that this feels similar. She was referred by her PCP to a upper GI specialist who she was supposed to see today, her insurance company was supposed to provide her a ride to the appointment but did not show up and she missed the appointment. She called the office to see what she should do and they encouraged her to come into the emergency department due to her pain. She reports that she was seen in the ED about 2 weeks ago due to similar symptoms and had a workup including a CAT scan that came back unremarkable. She reports intermittent nausea and vomiting. She denies fevers, chills, hematemesis, melena/hematochezia, and urinary symptoms. [facility] <CHAZ Ayala - Last Filed: 12/03/23 21:59> [facility] Medical History (Updated 12/03/23 @ 17:43 by Thi Hubbard) Anxiety Bipolar disorder Chronic pain History of renal calculi History of uterine cancer (2006) Hyperlipidemia Incomplete right bundle branch block Kidney stones Lung nodule Migraine Obesity Ovarian cyst Pancreatitis Right tubo-ovarian mass Smoker Ureteral stone with hydronephrosis Home Medications gabapentin 400 mg capsule 400 mg PO TID PRN NEUROPATHY 10/03/20 [History Last Taken 12/02/23] quetiapine 50 mg tablet 50 - 100 mg PO QHS SLEEP 09/07/22 [History Last Taken 12/02/23] aripiprazole 10 mg tablet 10 mg PO DAILY DEPRESSION 10/25/23 [History Last Taken 12/02/23] lorazepam 0.5 mg tablet 0.5 mg PO DAILY PRN ANXIETY 10/25/23 [History Last Taken 12/02/23] diphenhydramine HCl 25 mg capsule (Banophen) 25 mg PO QHS ALLERGIES 12/03/23 [History Last Taken 12/02/23] Allergy/AdvReac Type Severity Reaction Status Date / Time Iodinated Contrast Media [CT] Allergy Anaphylaxis Verified 12/03/23 14:22 ketorolac tromethamine Allergy Rash Verified 12/03/23 14:22 [From Toradol] metronidazole [From Flagyl] Allergy Hives Verified 12/03/23 14:22 Penicillins Allergy Hives Verified 12/03/23 14:22 dicyclomine [From Bentyl] AdvReac Mild Hives Verified 12/03/23 14:22 aspirin AdvReac Upset Verified 12/03/23 14:22 Stomach Family History Aunt Breast cancer Grandfather CAD (coronary artery disease) Father Heart disease, Onset Age: 73 Triple bypass Mother Heart disease, Onset Age: 62 Other Diabetes Surgical History (Updated 12/03/23 @ 17:42 by Thi Hubbard) H/O ovarian cystectomy (09/2019) History of bilateral oophorectomy History of cholecystectomy History of hysterectomy History of tubal ligation Social History household members: none Smoking Status: Current every day smoker tobacco type: cigarettes Tobacco: How many years used: 15 substance use type: does not use ROS <CHAZ Ayala - Last Filed: 12/03/23 21:59> ROS ED Constitutional Constitutional ED: Denies chills or fever(s) Cardiovascular Cardiovascular: Denies chest pain or palpitations Respiratory/Chest Respiratory/Chest: Denies cough or dyspnea Gastrointestinal Gastrointestinal: Reports abdominal pain, nausea and vomiting; Denies co nstipation, diarrhea or melena Genitourinary Genitourinary ED: Denies dysuria, hematuria or urinary urgency Musculoskeletal Musculoskeletal: Denies arthralgias or myalgias Integumentary Denies rash Neurologic Neurologic: Denies weakness EXAM <CHAZ Ayala - Last Filed: 12/03/23 21:59> Physical Exam Const Vital Signs: 12/03/23 14:23 12/03/23 16:21 Temperature 98.4 F Temperature Source Oral Pulse Rate 82 68 Respiratory Rate 18 14 Blood Pressure 126/67 H 119/68 Blood Pressure Mean 86 85 Pulse Ox 99 100 Oxygen Delivery Method Room Air Room Air Positive well nourished, well developed and no apparent distress General Appearance ED: well developed HEENT Reports normocephalic and head/scalp atraumatic Mouth ED: Yes moist mucous membranes normal Eyes PERRL and EOMs intact bilaterally Neck full ROM and supple Chest Wall inspection of chest normal Resp normal respiratory effort and clear to auscultation bilaterally Cardio regular rate and regular rhythm GI soft to palpation, non-distended and no masses GI Narrative: Minimal tenderness to the epigastrium and left upper quadrant.No rigidity, guarding, or peritoneal signs. Back/Spine normal ROM and normal to inspection Extremity normal to inspection and full ROM Neuro oriented x3, CN's II-XII intact bilaterally, moves all extremities, no focal motor deficits and no sensory deficits noted Sensorium / Orientation: awake and alert Psych mental status grossly normal and thought process normal Skin no rashes or lesions noted and no wounds <Dr. Ryan Garcia DO - Last Filed: 12/03/23 17:36> Physical Exam Const Vital Signs: 12/03/23 14:23 12/03/23 16:21 Temperature 98.4 F Temperature Source Oral Pulse Rate 82 68 Respiratory Rate 18 14 Blood Pressure 126/67 H 119/68 Blood Pressure Mean 86 85 Pulse Ox 99 100 Oxygen Delivery Method Room Air Room Air MDM <CHAZ Ayala - Last Filed: 12/03/23 21:59> [facility] Narrative Medical decision making narrative: Patient presenting due to epigastric abdominal pain that radiates to her left upper quadrant that she has had for 2 weeks. She does take Creon and Protonix daily. She was seen in [place] ED about 2 weeks ago, I did review this record from 11/22/2023, CT scan shows fatty liver but otherwise is unremarkable. Lipase at that time was unremarkable. She is nontoxic-appearing, vitals are unremarkable. Labs will be obtained to rule out leukocytosis, anemia, electrolyte abnormality, UVALDO, pancreatitis, and hepatobiliary etiology. She will be given IV fluids, Zofran, and morphine. Given she has had symptoms for 2 weeks and her labs essentially are unremarkable, I do not feel that imaging is indicated at this time. She will be given additional analgesia and a p.o. challenge. Patient was unable to hold down the fluids and reported worsening abdominal pain. Given she is unable to tolerate fluids I do think she would benefit from admission, I will start maintenance fluids and speak with hospitalist. Lab Data Attestation: I reviewed the patient's lab results. Labs: Laboratory Results - last 24 hr 12/03/23 14:47 WBC 8.4 RBC 4.39 Hgb 13.0 Hct 40.5 MCV 92.3 MCH 29.6 MCHC 32.1 RDW Std Deviation 42.4 RDW Coeff of Shun 12.4 Plt Count 261 MPV 11.3 Immature Gran % (Auto) 0.700 Neut % (Auto) 45.2 L Lymph % (Auto) 44.6 H [place] % (Auto) 6.8 Eos % (Auto) 2.0 Baso % (Auto) 0.7 Absolute Neuts (auto) 3.8 Absolute Lymphs (auto) 3.76 Nucleated RBC % 0 Sodium 139 Potassium 3.6 Chloride 108 H Carbon Dioxide 25.0 Anion Gap 6 BUN 10 Creatinine 1.02 Estim Creat Clear Calc 73.96 Est GFR (MDRD) Af Amer 76 Est GFR (MDRD) Non-Af 63 BUN/Creatinine Ratio 9.8 L Glucose 103 Calcium 9.4 Total Bilirubin 0.60 AST 20 ALT 35 Alkaline Phosphatase 102 Total Protein 7.5 Albumin 3.9 Globulin 3.6 Albumin/Globulin Ratio 1.1 Lipase 37 <Dr. Ryan Garcia, DO - Last Filed: 12/03/23 17:36> MDM MDM Narrative Medical decision making narrative: Patient presenting due to epigastric abdominal pain that radiates to her left upper quadrant that she has had for 2 weeks. She does take Creon and Protonix daily. She was seen in [place] ED about 2 weeks ago, I did review this record from 11/22/2023, CT scan shows fatty liver but otherwise is unremarkable. Lipase at that time was unremarkable. She is nontoxic-appearing, vitals are unremarkable. Labs will be obtained to rule out leukocytosis, anemia, electrolyte abnormality, UVALDO, pancreatitis, and hepatobiliary etiology. She will be given IV fluids, Zofran, and morphine. Given she has had symptoms for 2 weeks and her labs essentially are unremarkable, I do not feel that imaging is indicated at this time. She will be given additional analgesia and a p.o. challenge. Patient was unable to hold down the fluids and reported worsening abdominal pain. Given she is unable to tolerate fluids I do think she would benefit from admission, I will start maintenance fluids and speak with hospitalist. 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 I perform my own [id number] evaluation. I agree with the plan of work-up. Continued abdominal pain mid abdomen to the left worse last 2 weeks. History of pancreatitis for the past few years. Gallbladder removed in 1998 prior to pancreatitis. Denies alcohol history. She was last seen 2 weeks ago at [place] ED reported CT scan labs were normal. She was sent home on Zofran for which she had at home. Had appointment with GI [place] [facility] today however her insurance ride did not pick her up. She had to call to cancel was referred here. Pain with any p.o. intake. She is on Protonix daily. She is started on Creon by her primary care team. EGD and colonoscopy the last couple years through the GI office reported normal. Exam tender palpation mid abdomen there is no guarding or rebound. Moist mucosal membranes. Evaluated after initial treatment with labs. Labs are normal lipase 37 normal liver enzymes white count 8.4. Normal electrolytes and creatinine 1.02. Attempted p.o. oxycodone with p.o. challenge however she vomited this up. IV fluids continued for maintenance, additional antiemetics. With intractable symptoms, discussed with hospitalist for admission. Re-evaluation: stable Disposition discussed with patient/family/significant other: Patient Case discussed with consulting clinician: Hospitalist This note was generated with [employer] dictation software. It may contain incorrect words, spelling, and punctuation that were not noted in checking the note before signing. Lab Data Labs: Laboratory Results - last 24 hr 12/03/23 14:47 WBC 8.4 RBC 4.39 Hgb 13.0 Hct 40.5 MCV 92.3 MCH 29.6 MCHC 32.1 RDW Std Deviation 42.4 RDW Coeff of Shun 12.4 Plt Count 261 MPV 11.3 Immature Gran % (Auto) 0.700 Neut % (Auto) 45.2 L Lymph % (Auto) 44.6 H [place] % (Auto) 6.8 Eos % (Auto) 2.0 Baso % (Auto) 0.7 Absolute Neuts (auto) 3.8 Absolute Lymphs (auto) 3.76 Nucleated RBC % 0 Sodium 139 Potassium 3.6 Chloride 108 H Carbon Dioxide 25.0 Anion Gap 6 BUN 10 Creatinine 1.02 Estim Creat Clear Calc 73.96 Est GFR (MDRD) Af Amer 76 Est GFR (MDRD) Non-Af 63 BUN/Creatinine Ratio 9.8 L Glucose 103 Calcium 9.4 Total Bilirubin 0.60 AST 20 ALT 35 Alkaline Phosphatase 102 Total Protein 7.5 Albumin 3.9 Globulin 3.6 Albumin/Globulin Ratio 1.1 Lipase 37 Discharge Plan Dx/Rx/DC Orders Clinical Impression: History of pancreatitis, Intractable nausea and vomiting, Abdominal pain Disposition Disposition: Acute Care Hospital [facility] Discharge Date/Time: 12/03/23 17:27
[2023-12-03] MEDS: oxyCODONE 5 MG Tablet PO ×2 (15:56→18:42)
[2023-12-03 16:21] VITALS: BP 119/68; PULSE 68; RESP 14; O2SAT 100
--- NOTE | 2023-12-03 16:32 | HP.PCM.HOS_ITS ---
HPI - General General Date of Admission: 12/03/23 Date of Service: 12/03/23 Chief Complaint: Intractable nausea and vomiting HPI Narrative NORM VARGAS, is a 43 F who presented to [facility] ED on 12/03/2023 with intractable nausea and vomiting. Patient seen at bedside in the ED. Patient was laying in bed and conversing normally. She appeared to be in very mild distress which she reported was due to her abdominal pain. States that she has history of chronic pancreatitis and her last flareup was about 1 year ago. She has been on Creon since then. States that she was doing fairly well until a few weeks ago, when she felt like she was starting to have another flareup of her pancreatitis. She went to the ED at [place] about 2 weeks ago for this. Her CT abdomen pelvis was benign and her lipase level was noted to be normal at that time, so she was discharged with plan for outpatient follow-up. She was supposed to follow-up with the GI doc this morning but was unable to get transportation to the appointment, so they recommended that she come to the ED for further evaluation. Noted to be hemodynamically stable in the ED. Lab workup is fairly benign including a normal lipase level. ED physician deferred abdominal imaging since she had just been scanned 2 weeks ago. They had her try p.o. intake but she fairly quickly vomited what she had eaten. Hospitalist was then contacted for admission for intractable nausea and vomiting. Fairly extensive chart review completed including review of [facility] records. Patient was admitted to [facility] in early March 2023 with very similar symptoms. She was transferred to [facility] in [place] for further management. She was seen there by Dr. Hemphill with gastroenterology. Her imaging at that time was normal and her lipase and liver enzymes were also normal. Dr. Hemphill mentioned that she had a history of pancreatitis but did not say that she had chronic pancreatitis. He was not particularly impressed with the patient's presentation and recommended that she could undergo a gastric emptying study as an outpatient. He recommended that she continue antinausea medication as needed and daily PPI going forward. However, he did not mention that the patient would need to be on Creon. Patient states she saw a Dr. Young with GI in the office after that hospitalization and thinks that Dr. 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 Unclear if the patient ever had the gastric emptying study done. Patient was hospitalized at [facility] in 2019 for significant abdominal pain. She was found to have a very elevated lipase in the 4000's at that time. Notably had had a cholecystectomy prior to that and liver enzymes were not elevated, so had no concern for gallbladder pancreatitis. Her pancreas appeared normal on CT abdomen pelvis at that time. On review of multiple CT scans of the abdomen, patient has always had a normal pancreas noted. She has had multiple liver cysts noted on several scans which have apparently been thought to be benign. The cause of her pancreatitis was unclear and thought to be possibly medication induced. Patient currently states that her abdominal pain feels similar to her pain over the past few weeks. She points to her epigastric region and over into her left upper quadrant when asked where the pain is. She denies any symptoms of acid reflux. States that the last time she was able to keep any significant amount of food down was about 2 weeks ago. States that she has nausea with vomiting within seconds after eating. She denies any episodes where she was able to keep food down for 30 minutes to an hour or more and then had vomiting. States the vomiting is more liquid in consistency with stomach acid. States that she has been having fairly normal bowel movements every day over that timeframe. Denies any bilious vomiting. Patient does have a BMI of 39, denies losing any weight recently that she is aware of. She denies any recent fevers or chills. Denies any chest pain or shortness of breath. No other acute concerns this time. [facility] Medical History (Updated 12/03/23 @ 17:43 by Thi Hubbard) Anxiety Bipolar disorder Chronic pain History of renal calculi History of uterine cancer (2006) Hyperlipidemia Incomplete right bundle branch block Kidney stones Lung nodule Migraine Obesity Ovarian cyst Pancreatitis Right tubo-ovarian mass Smoker Ureteral stone with hydronephrosis Home Medications gabapentin 400 mg capsule 400 mg PO TID PRN NEUROPATHY 10/03/20 [History Last Taken 12/02/23] quetiapine 50 mg tablet 50 - 100 mg PO QHS SLEEP 09/07/22 [History Last Taken 12/02/23] aripiprazole 10 mg tablet 10 mg PO DAILY DEPRESSION 10/25/23 [History Last Taken 12/02/23] lorazepam 0.5 mg tablet 0.5 mg PO DAILY PRN ANXIETY 10/25/23 [History Last Taken 12/02/23] diphenhydramine HCl 25 mg capsule (Banophen) 25 mg PO QHS ALLERGIES 12/03/23 [History Last Taken 12/02/23] Allergy/AdvReac Type Severity Reaction Status Date / Time Iodinated Contrast Media [CT] Allergy Anaphylaxis Verified 12/03/23 14:22 ketorolac tromethamine Allergy Rash Verified 12/03/23 14:22 [From Toradol] metronidazole [From Flagyl] Allergy Hives Verified 12/03/23 14:22 Penicillins Allergy Hives Verified 12/03/23 14:22 dicyclomine [From Bentyl] AdvReac Mild Hives Verified 12/03/23 14:22 aspirin AdvReac Upset Verified 12/03/23 14:22 Stomach Family History Aunt Breast cancer Grandfather CAD (coronary artery disease) Father Heart disease, Onset Age: 73 Triple bypass Mother Heart disease, Onset Age: 62 Other Diabetes Surgical History (Updated 12/03/23 @ 17:42 by Thi Hubbard) H/O ovarian cystectomy (09/2019) History of bilateral oophorectomy History of cholecystectomy History of hysterectomy History of tubal ligation Social History household members: none Smoking Status: Current every day smoker tobacco type: cigarettes Tobacco: How many years used: 15 substance use type: does not use ROS Constitutional Constitutional: Denies chills, fatigue, fever(s) or weakness Cardiovascular Cardiovascular: Denies chest pain Respiratory/Chest Respiratory/Chest: Denies cough, shortness of breath at rest or wheezing Gastrointestinal Gastrointestinal: Reports abdominal pain; Denies constipation or diarrhea Musculoskeletal Musculoskeletal: Denies arthralgias, back pain or myalgias Neurologic Neurologic: Denies dizziness, focal weakness or headache(s) Vital Signs Vital Signs Vital Signs: 12/03/23 14:23 Temperature 98.4 F Temperature Source Oral Pulse Rate 82 Respiratory Rate 18 Blood Pressure 126/67 H Blood Pressure Mean 86 Pulse Ox 99 Oxygen Delivery Method Room Air Weight Weight: 94.7 kg Body Mass Index (BMI) 39.4 Physical Exam Const alert, oriented x3 and no apparent distress Constitutional Narrative: Middle-age female, morbidly obese, laying fairly comfortably in bed, conversing normally, had some intermittent wincing noted throughout our conversation but otherwise did not appear to be in any acute distress. General Appearance: cooperative and comfortable HEENT normocephalic, head/scalp atraumatic, hearing grossly normal bilaterally, nasal mucous membranes and turbinates normal and moist oral mucous membranes Eyes PERRL, EOMs intact bilaterally and conjunctivae normal Neck full ROM Lymph Lymphatic: no lymphadenopathy noted Chest inspection of chest normal Resp normal respiratory effort, normal air movement, no use of accessory muscles and clear to auscultation bilaterally Cardio regular rate, regular rhythm, no murmurs and peripheral pulses 2+ throughout GI GI Narrative: Abdomen soft and nondistended. Mild tenderness to palpation noted in the epigastric and left upper quadrant regions. No guarding or rebound tenderness noted. Back/Spine normal ROM Extremity normal to inspection, full ROM and no pedal edema Skin no rashes or lesions noted Neuro moves all extremities and no focal motor deficits Speech: speech normal Psych mental status grossly normal Results Lab / Micro Data 12/03/23 14:47 12/03/23 14:47 Labs: Laboratory Results - last 24 hr 12/03/23 14:47: WBC 8.4, RBC 4.39, Hgb 13.0, Hct 40.5, MCV 92.3, MCH 29.6, MCHC 32.1, RDW Std Deviation 42.4, RDW Coeff of Shun 12.4, Plt Count 261, MPV 11.3, Immature Gran % (Auto) 0.700, Neut % (Auto) 45.2 L, Lymph % (Auto) 44.6 H, [place] % (Auto) 6.8, Eos % (Auto) 2.0, Baso % (Auto) 0.7, Absolute Neuts (auto) 3.8, Absolute Lymphs (auto) 3.76, Nucleated RBC % 0, Sodium 139, Potassium 3.6, Chloride 108 H, Carbon Dioxide 25.0, Anion Gap 6, BUN 10, Creatinine 1.02, Estim Creat Clear Calc 73.96, Est GFR (MDRD) Af Amer 76, Est GFR (MDRD) Non-Af 63, BUN/Creatinine Ratio 9.8 L, Glucose 103, Calcium 9.4, Total Bilirubin 0.60, AST 20, ALT 35, Alkaline Phosphatase 102, Total Protein 7.5, Albumin 3.9, Globulin 3.6, Albumin/Globulin Ratio 1.1, Lipase 37 Assessment & Plan Assessment/Plan (1) Abdominal pain: (2) Intractable nausea and vomiting: PLAN: Plan Patient is a 43-year-old female who presented to [facility] ED on 12/03/2023 with abdominal pain and intractable nausea and vomiting. 1. Abdominal pain, intractable nausea and vomiting, reported history of chronic pancreatitis ? Presented with worsening epigastric abdominal pain, nausea/vomiting and inability to tolerate p.o. intake. Has reported history of chronic pancreatitis and was on Creon. Had episode of pancreatitis in 2019 with elevated lipase, no findings on imaging, otherwise unclear if patient actually has chronic pancreatitis. See HPI for further details. ? Vitals stable in the ED, normotensive, heart rate in 60s, afebrile, satting well on room air. Exam essentially benign. Lipase normal, labs otherwise fairly benign. CT abdomen pelvis 2 weeks ago with no concerning findings so imaging was not repeated here. ? Admit under inpatient status to [facility]. GI consulted. Will allow patient to have a diet if she would like, though she states she cannot tolerate p.o. intake. Will run LR 75 cc/hr overnight and discontinue in the morning. Will do low-dose oxycodone as needed for pain, Zofran for nausea and Compazine for breakthrough nausea. Continue home PPI. Unclear if she has been taking Creon consistently, will not prescribe now. Chronic medical conditions: ? Obesity: BMI 40 on admit. Encouraged lifestyle modifications. Complicates hospital course, care and prognosis. ? Depression/anxiety/insomnia: Continue home aripiprazole, Benadryl at night as needed, lorazepam 0.5 mg daily as needed. ? Neuropathy: Continue home gabapentin. DVT prophylaxis: Lovenox twice daily CODE STATUS: Full code, verified Expected disposition: Home, 2 to 3 days Total clinical time spent by myself addressing the patient's medical issues, reviewing all the data, and collaborating with patient's care team: 55 minutes. Charges/Coding Visit Charges Inpatient E&M: 59044 Init Hosp L2
[2023-12-03] MEDS: Famotidine 200 MG/20 ML MDV 20 MG in 0.9% Normal Saline (Pres. free 8 ML 300 MG IV (16:51)
[2023-12-03] MEDS: proMETHazine 25 MG/ML Syringe 12.5 MG IM (16:52)
[2023-12-03] MEDS: 0.9% Normal Saline (1000mL) 1,000 ML 100 ML IV (16:53)
[2023-12-03 17:15] VITALS: BP 124/78; PULSE 67; RESP 16; TEMP 36.6; O2SAT 99
[2023-12-03 17:37] VITALS: BMI 39.1
[2023-12-03 17:44] VITALS: BP 117/64; PULSE 62; RESP 20; TEMP 36.6; O2SAT 98
[2023-12-03] MEDS: 0.9% Saline Lock 10 ML Syringe IV ×2 (18:11→18:41)
[2023-12-03] MEDS: Lactated Ringers 1,000 ML 75 ML IV (18:12)
[2023-12-03] MEDS: Acetaminophen 325 MG Tablet 650 MG PO (18:41)
[2023-12-03] MEDS: proCHLORPERazine 10 MG/2 ML Vial 5 MG IV (18:42)
[2023-12-03 19:59] VITALS: O2SAT 98
[2023-12-03 20:49] VITALS: BP 111/66; PULSE 67; RESP 16; TEMP 36.8; O2SAT 100
[2023-12-03] MEDS: Gabapentin 400 MG Capsule PO (21:01)
[2023-12-03] MEDS: DiphenhydrAMINE 25 MG Capsule PO (21:01)
[2023-12-03] MEDS: QUEtiapine 25 MG Tablet 50 MG PO (21:01)
[2023-12-04] VITALS (9 sets, daily range): BP systolic 98–134; BP diastolic 55–77; PULSE 59–82; RESP 8–18; TEMP 36.4–36.5; O2SAT 94–100
[2023-12-04] MEDS: proCHLORPERazine 10 MG/2 ML Vial 5 MG IV ×2 (00:43→08:37)
[2023-12-04] MEDS: oxyCODONE 5 MG Tablet PO ×4 (01:26→15:30)
[2023-12-04] MEDS: Acetaminophen 325 MG Tablet 650 MG PO ×3 (01:27→15:30)
[2023-12-04] MEDS: Gabapentin 400 MG Capsule PO ×2 (06:19→14:03)
[2023-12-04] MEDS: Ondansetron 4 MG/2 ML Vial IV ×2 (06:20→15:30)
[2023-12-04 06:49] LABS: Hemoglobin 12.7 g/dL (12.0-15.0); Mean Corp Hgb Conc 32.6 g/dL (32-36); Mean Corpuscular Hgb 30.5 pg (27.0-32.0); Mean Corpuscular Volume 93.5 fL (81-99); Mean Platelet Vol. 10.7 fl (6.2-12.0); Platelet Count 209 K/mm3 (150-450); RBC Distribution Width CV 12.8 % (11.6-14.6); RBC Distribution Width SD 43.2 fl (35.1-43.9); Red Blood Count 4.17 M/mm3 (4.2-5.4); White Blood Count 5.7 K/mm3 (4.4-11.0)
[2023-12-04 07:13] LABS: Anion Gap 5 (5-15); BUN 8 mg/dL (7-18); BUN/Creat Ratio 7.9 RATIO (10-20); Calcium,Total 8.8 mg/dL (8.5-10.1); Chloride 111 mmol/L (98-107); Creatinine, Serum 1.01 mg/dL (0.55-1.02); EST Glomerular Filtration Rate 63 mL/min (>60); Est Glom Filt Rate - Afr Amer 77 mL/min (>60); Estimated Creatinine Clearance 74.33 ml/min; Glucose 98 mg/dL (74-106); Potassium 3.7 mmol/L (3.5-5.1); Sodium Level 141 mmol/L (136-145)
[2023-12-04] MEDS: Pantoprazole Sodium 40 MG Tablet PO (08:36)
[2023-12-04] MEDS: ARIPiprazole 10 MG Tablet PO (08:36)
[2023-12-04] MEDS: 0.9% Saline Lock 10 ML Syringe IV ×3 (08:36→15:30)
[2023-12-04 08:37] LABS: CRP 6.61 mg/L (0.0-3.0)
[2023-12-04] MEDS: DiphenhydrAMINE 25 MG Capsule PO (08:40)
[2023-12-04 09:00] LABS: Erythrocyte Sedimentation Rate 6 mm/hr (0-30)
--- NOTE | 2023-12-04 10:20 | CASEMGMT ---
RN?CM?FAMILY LAW LEGAL ASSISTANT?CM?to room to meet with patient for initial transition planning/care coordination?assessment.?RN?CM?introduced self and role at [facility].? Pt voices understanding and consents to?assessment?at this time.? Pt resting in bed in no distress at this time.? Pt is A/O at this time and answers all questions appropriately.?? Care providers, pharmacy, and demographics verified/updated at this time. PCP: Dr Baca Specialists: [facility] She does not remember his last name. Preferred [facility]acy[facility] Insurance: [employer] Prescription Benefit:?Yes Living Will/HPOA:? Pt does not currently have LW/HCPOA and declines info at this time.? Pt made aware that she can contact as an out-pt and make appt in the future if she decides she would like to talk with someone about this or would like to utilize [facility] social work for advanced directive completion. LNOK: Sig other, Christopher Duenas. Pt has 2 sons, ages 22 and 25. Father, Ryan Ochoa. Mother about 2 yrs ago. Living Arrangements: Lives w/sig other, Christopher, in apt w/4 steps to enter. Denies difficulty w/stairs. Independent w/ADL'S and IADL's and manages her own medications. Transportation:?Pt does not drive. Christopher/ANTHONY drives and will take pt home @ discharge. DME: ? Denies using any DME and denies needs. HHC/SNF: No hx of either. No needs identified. 6 clicks 24, indicating no need for therapy. Pt wishes to return home and states has no concerns with going home at time of discharge.?CM?to follow for any discharge planning/needs.? Pt voices no concerns/needs at this time.? Advised pt to ask for?CM?if any questions/concerns/needs arise.? Voices understanding. PLAN:??Home Brendan RAMESHN?RN?CM
[2023-12-04] MEDS: Acetaminophen/Butalbital/Caffe 1 Tablet 2 TABLET PO (12:18)
--- NOTE | 2023-12-04 13:04 | MRI_ITS ---
Examination: MRI of the abdomen without contrast and MRCP INDICATION: Pancreatitis TECHNIQUE: Multisequence MRI of the abdomen was obtained. 3-D postprocessing MRCP was obtained as well. COMPARISON: CT dated April 01, 2023 FINDINGS: The lung bases are clear. There are multiple cysts stable cysts throughout the liver. The gallbladder is surgically absent. There is no intra or extrahepatic ductal dilatation. The pancreas is within normal limits. No pancreatic ductal dilatation is seen. The adrenal glands are within normal limits. The kidneys are stable. There is a left extrarenal pelvis. The stomach is within normal limits. The visualized loops of small bowel and colon are grossly unremarkable. The visualized abdominal wall is within normal limits. No suspicious bony lesions are seen. MRI/MRCP Abdomen without Contrast IMPRESSION: No acute intra-abdominal process. Electronically Signed: Margaret Chu MD at 9:54 EDT ,
[2023-12-04] MEDS: LORazepam 2 MG/ML Syringe 1 MG IV (13:41)
--- NOTE | 2023-12-04 16:45 | DCINST_ITS ---
Discharge Instructions Diet Discharge Diet: No restrictions Activity Discharge Activity: Return to Normal Activity Weight Bearing Status: Full weight bearing Follow Up Care Test Results: Test results from this visit will be discussed in further detail at your follow- up appointment, if applicable. Discharge Plan Admission Admit Date/Time: 12/03/23 16:46 Primary Reason for Your Visit: chronic abdominal pain Attending Provider: Eduar Gurrola Primary Care Provider: Michell Baca Consulting Providers: Friend,Bola; Jonh Geiger Discharge Orders/Prescriptions Prescriptions: New oxycodone 5 mg Tablet 5 mg PO Q4H PRN PRN (Reason: Pain Score 6-10) 3 Days Qty: 15 0RF Continued gabapentin 400 MG capsule 400 mg PO TID PRN (Reason: NEUROPATHY ) Patient Comments: PT STATES THEIR DOCTOR RECENTLY UPPED THE DOSE THAT CAN BE TAKEN quetiapine 50 mg tablet 50 - 100 mg PO QHS lorazepam 0.5 mg tablet 0.5 mg PO DAILY PRN (Reason: ANXIETY ) aripiprazole 10 mg tablet 10 mg PO DAILY diphenhydramine HCl [Banophen] 25 mg capsule 25 mg PO QHS Referrals / Follow Up: Michell Baca MD [Primary Care Provider] - Within 1 Week Disposition Disposition (needs filled in before D/C Order can be placed): Home, Self Care
--- NOTE | 2023-12-04 16:51 | CON.PCM.GI_ITS ---
HPI Consult Data Date of Consult: 12/04/23 HPI Narrative Reason for Consultation: Abdominal pain with nausea and vomiting HPI Narrative: NORM VARGAS, is a 43 F who presented to the ED with worsening abdominal pain and intractable nausea and vomiting. Patient seen at bedside in the ED. Patient was laying in bed and conversing normally. She appeared to be in very mild distress which she reported was due to her abdominal pain. States that she has history of chronic pancreatitis and her last flareup was about 1 year ago. She has been on Creon since then. States that she was doing fairly well until a few weeks ago, when she felt like she was starting to have another flareup of her pancreatitis. She went to the ED at [place] about 2 weeks ago for this. Her CT abdomen pelvis was benign and her lipase level was noted to be normal at that time, so she was discharged with plan for outpatient follow-up. She was supposed to follow-up with the GI doc this morning but was unable to get transportation to the appointment, so they recommended that she come to the ED for further evaluation. Noted to be hemodynamically stable in the ED. Lab workup is fairly benign including a normal lipase level. ED physician deferred abdominal imaging since she had just been scanned 2 weeks ago. They had her try p.o. intake but she fairly quickly vomited what she had eaten. Hospitalist was then contacted for admission for intractable nausea and vomiting. Patient was hospitalized at [facility] in 2019 for significant abdominal pain. She was found to have a very elevated lipase in the 4000's at that time. Notably had had a cholecystectomy prior to that and liver enzymes were not elevated, so had no concern for gallbladder pancreatitis. Her pancreas appeared normal on CT abdomen pelvis at that time. On review of multiple CT scans of the abdomen, patient has always had a normal pancreas noted. She has had multiple liver cys ts noted on several scans which have apparently been thought to be benign. The cause of her pancreatitis was unclear and thought to be possibly medication induced. Patient currently states that her abdominal pain feels similar to her pain over the past few weeks. She points to her epigastric region and over into her left upper quadrant when asked where the pain is. She denies any symptoms of acid reflux. States that the last time she was able to keep any significant amount of food down was about 2 weeks ago. States that she has nausea with vomiting within seconds after eating. She denies any episodes where she was able to keep food down for 30 minutes to an hour or more and then had vomiting. States the vomiting is more liquid in consistency with stomach acid. States that she has been having fairly normal bowel movements every day over that timeframe. Denies any bilious vomiting. Patient does have a BMI of 39, denies losing any weight recently that she is aware of. She denies any recent fevers or chills. Denies any chest pain or shortness of breath. No other acute concerns this time. FORMERLY [facility] Medical History (Updated 12/03/23 @ 17:43 by Thi Hubbard) Anxiety Bipolar disorder Chronic pain History of renal calculi History of uterine cancer (2006) Hyperlipidemia Incomplete right bundle branch block Kidney stones Lung nodule Migraine Obesity Ovarian cyst Pancreatitis Right tubo-ovarian mass Smoker Ureteral stone with hydronephrosis Home Medications gabapentin 400 mg capsule 400 mg PO TID PRN NEUROPATHY 10/03/20 [History Last Taken 12/02/23] quetiapine 50 mg tablet 50 - 100 mg PO QHS SLEEP 09/07/22 [History Last Taken 12/02/23] aripiprazole 10 mg tablet 10 mg PO DAILY DEPRESSION 10/25/23 [History Last Taken 12/02/23] lorazepam 0.5 mg tablet 0.5 mg PO DAILY PRN ANXIETY 10/25/23 [History Last Taken 12/02/23] diphenhydramine HCl 25 mg capsule (Banophen) 25 mg PO QHS ALLERGIES 12/03/23 [History Last Taken 12/02/23] oxycodone 5 mg tablet 5 mg PO Q4H PRN PRN Pain Score 6-10 3 days #15 tabs 12/04/23 [Rx Last Taken Unknown] Allergy/AdvReac Type Severity Reaction Status Date / Time Iodinated Contrast Media [CT] Allergy Anaphylaxis Verified 12/03/23 14:22 ketorolac tromethamine Allergy Rash Verified 12/03/23 14:22 [From Toradol] metronidazole [From Flagyl] Allergy Hives Verified 12/03/23 14:22 Penicillins Allergy Hives Verified 12/03/23 14:22 dicyclomine [From Bentyl] AdvReac Mild Hives Verified 12/03/23 14:22 aspirin AdvReac Upset Verified 12/03/23 14:22 Stomach Family History Aunt Breast cancer Grandfather CAD (coronary artery disease) Father Heart disease, Onset Age: 73 Triple bypass Mother Heart disease, Onset Age: 62 Other Diabetes Surgical History (Updated 12/03/23 @ 17:42 by Thi Hubbard) H/O ovarian cystectomy (09/2019) History of bilateral oophorectomy History of cholecystectomy History of hysterectomy History of tubal ligation Social History household members: none Smoking Status: Current every day smoker tobacco type: cigarettes Tobacco: How many years used: 15 substance use type: does not use ROS Constitutional Constitutional: Denies chills, fatigue, fever(s) or weakness Cardiovascular Cardiovascular: Denies chest pain Respiratory/Chest Respiratory/Chest: Denies cough, shortness of breath at rest or wheezing Gastrointestinal Gastrointestinal: Reports abdominal pain; Denies constipation or diarrhea Musculoskeletal Musculoskeletal: Denies arthralgias, back pain or myalgias Neurologic Neurologic: Denies dizziness, focal weakness or headache(s) Physical Exam Const alert, oriented x3 and no apparent distress Constitutional Narrative: Middle-age female, morbidly obese, laying fairly comfortably in bed, conversing normally, had some intermittent wincing noted throughout our conversation but otherwise did not appear to be in any acute distress. General Appearance: cooperative and comfortable HEENT normocephalic, head/scalp atraumatic, hearing grossly normal bilaterally, nasal mucous membranes and turbinates normal and moist oral mucous membranes Eyes PERRL, EOMs intact bilaterally and conjunctivae normal Neck full ROM Lymph Lymphatic: no lymphadenopathy noted Chest inspection of chest normal Resp normal respiratory effort, normal air movement, no use of accessory muscles and clear to auscultation bilaterally Cardio regular rate, regular rhythm, no murmurs and peripheral pulses 2+ throughout GI GI Narrative: Abdomen soft and nondistended. Mild tenderness to palpation noted in the epigastric and left upper quadrant regions. No guarding or rebound tenderness noted. Back/Spine normal ROM Extremity normal to inspection, full ROM and no pedal edema Skin no rashes or lesions noted Neuro moves all extremities and no focal motor deficits Speech: speech normal Psych mental status grossly normal Lab / Micro Data 12/04/23 06:35 12/04/23 06:35 Labs: Laboratory Results - last 24 hr 12/04/23 06:35: WBC 5.7, RBC 4.17 L, Hgb 12.7, Hct 39.0, MCV 93.5, MCH 30.5, MCHC 32.6, RDW Std Deviation 43.2, RDW Coeff of Shun 12.8, Plt Count 209, MPV 10.7, ESR 6, Sodium 141, Potassium 3.7, Chloride 111 H, Carbon Dioxide 25.0, Anion Gap 5, BUN 8, Creatinine 1.01, Estim Creat Clear Calc 74.33, Est GFR (MDRD) Af Amer 77, Est GFR (MDRD) Non-Af 63, BUN/Creatinine Ratio 7.9 L, Glucose 98, Calcium 8.8, C-React Prot Ext Range 6.61 H Assessment & Plan Assessment/Plan (1) Abdominal pain: (2) Intractable nausea and vomiting: PLAN: Plan Patient is a 43-year-old female who presented to [facility] ED on 12/03/2023 with abdominal pain and intractable nausea and vomiting. Abdominal pain, intractable nausea and vomiting, reported history of chronic pancreatitis. On reviewing her CT scan abdomen pelvis I do not see any signs of acute or chronic pancreatitis. She does not have any calcifications, pancreatic ductal dilation, pseudocyst. I would recommend an MRCP to see if she has any signs of pancreatic divisum. Her symptoms seem to be more of gastroparesis than acute on chronic pancreatitis. She has not had a gastric emptying study which I think she would benefit from. She had an upper and lower endoscopy in the past for similar com plaints but that did not show anything as per the patient. At this time she appears to be comfortable. I will advance her diet to see how she does and tolerating foods after she undergoes MRCP. Presented with worsening epigastric abdominal pain, nausea/vomiting and inability to tolerate p.o. intake. Charges/Coding Visit Charges Inpatient E&M: 30638 Init Hosp L3
--- NOTE | 2023-12-04 16:51 | PCM.DC.SUM ---
Providers Date of Admission: 12/03/23 Date of Discharge: 12/04/23 Primary Care Physician: Dr. Michell Baca MD Consultations 12/03/23 17:55 Consult: Gastroenterology Routine Consulting Provider: Bola Harris Reason for Consult: intractable N/V, reported chronic pancreatitis EMERGENT Consult: No MD Notified: Yes Date Notified: 12/03/23 Time Notified: 18:28 Method of Notification: Text Reason For Visit: INTRACTABLE NAUSEA/VOMITING Diagnosis Discharge Diagnosis (1) Abdominal pain: Status: Acute Code(s): R10.9 - Unspecified abdominal pain (2) Intractable nausea and vomiting: Status: Acute Code(s): R11.2 - Nausea with vomiting, unspecified Plan 1. Abdominal pain-etiology unclear #2 chronic depression/anxiety #3 history of chronic pancreatitis Medications at Discharge Home Medications gabapentin 400 mg capsule 400 mg PO TID PRN NEUROPATHY 10/03/20 quetiapine 50 mg tablet 50 - 100 mg PO QHS SLEEP 09/07/22 aripiprazole 10 mg tablet 10 mg PO DAILY DEPRESSION 10/25/23 lorazepam 0.5 mg tablet 0.5 mg PO DAILY PRN ANXIETY 10/25/23 diphenhydramine HCl 25 mg capsule (Banophen) 25 mg PO QHS ALLERGIES 12/03/23 oxycodone 5 mg tablet 5 mg PO Q4H PRN PRN Pain Score 6-10 3 days #15 tabs 12/04/23 Hospital Course Operations None Procedures None Summary of Care Provided Minutes Spent on Discharge: 31 Hospital Course: This 43-year-old white female was seen in the emergency room at [facility] presenting with abdominal pain and intractable nausea and vomiting, she had a previous history of chronic pancreatitis. Workup in the emergency room included a lipase which was normal, the remainder of her labs were also unremarkable. CT of the abdomen and pelvis 2 weeks ago showed no concerning findings for pancreatitis and was not repeated. Patient was admitted to [place] [address], she was given IV fluids, and seen in consultation with gastroenterology. MRCP was ordered and this did not show any abnormality. On 12/04/2023, patient was seen and examined: On examination she appeared in good health and spirits, she does not appear to be in any distress. Vital signs as documented. Skin warm and dry and without overt rashes. Neck without JVD, thyroid appears normal, trachea is midline, neck is supple. Lungs clear, normal air movement was noted. Heart exam notable for regular rhythm, normal sounds and absence of murmurs, rubs or gallops. Abdomen unremarkable and without evidence of organomegaly, masses, or abdominal aortic enlargement, bowel sounds are present in all 4 quadrants, no abdominal tenderness was noted. Extremities nonedematous, no cyanosis was noted, no clubbing was noted. Neuro: Cranial nerves II through XII are grossly intact, no focal motor deficits were noted, sensation to light touch and pinprick is intact, motor exam 5/5 throughout. Psych: Patient is alert and oriented x3, she does not appear anxious or depressed, she does not appear agitated. Patient appear to be stable for discharge home on 12/04/2023, she was to follow-up with gastroenterology and her PCP as an outpatient. Patient was not felt to have had pancreatitis. Weight / BMI Weight Weight: 93.894 kg Body Mass Index (BMI) 39.1 ABG / Lab / Microbiology Data 12/04/23 06:35 12/04/23 06:35 Laboratory: Laboratory Results - last 24 hr 12/04/23 06:35: WBC 5.7, RBC 4.17 L, Hgb 12.7, Hct 39.0, MCV 93.5, MCH 30.5, MCHC 32.6, RDW Std Deviation 43.2, RDW Coeff of Shun 12.8, Plt Count 209, MPV 10.7, ESR 6, Sodium 141, Potassium 3.7, Chloride 111 H, Carbon Dioxide 25.0, Anion Gap 5, BUN 8, Creatinine 1.01, Estim Creat Clear Calc 74.33, Est GFR (MDRD) Af Amer 77, Est GFR (MDRD) Non-Af 63, BUN/Creatinine Ratio 7.9 L, Glucose 98, Calcium 8.8, C-React Prot Ext Range 6.61 H D/C Instructions Discharge Diet: No restrictions Weight Bearing Status: Full weight bearing Meaningful Use Info Meaningful Use Diagnoses (Choose all that apply): None applicable Discharge Plan Admission Admit Date/Time: 12/03/23 16:46 Primary Reason for Your Visit: chronic abdominal pain Attending Provider: Eduar Gurrola Primary Care Provider: Michell Baca Consulting Providers: Bola Harris; Jonh Geiger Discharge Orders/Prescriptions Prescriptions: New oxycodone 5 mg Tablet 5 mg PO Q4H PRN PRN (Reason: Pain Score 6-10) 3 Days Qty: 15 0RF Continued gabapentin 400 MG capsule 400 mg PO TID PRN (Reason: NEUROPATHY ) Patient Comments: PT STATES THEIR DOCTOR RECENTLY UPPED THE DOSE THAT CAN BE TAKEN quetiapine 50 mg tablet 50 - 100 mg PO QHS lorazepam 0.5 mg tablet 0.5 mg PO DAILY PRN (Reason: ANXIETY ) aripiprazole 10 mg tablet 10 mg PO DAILY diphenhydramine HCl [Banophen] 25 mg capsule 25 mg PO QHS Referrals / Follow Up: Michell Baca MD [Primary Care Provider] - Within 1 Week Disposition Disposition (needs filled in before D/C Order can be placed): Home, Self Care Charges/Coding Visit Charges Inpatient E&M: 63916 Disch Hosp >30min
[2023-12-10 10:09] LABS: Anti-Centromere B Ab <0.2 AI (0.0-0.9); Anti-Chromatin <0.2 AI (0.0-0.9); Anti-Jo <0.2 AI (0.0-0.9); Anti-Scleroderma-70 AB <0.2 AI (0.0-0.9); Anti-dsDNA Ab 1 IU/mL (0-9); Beef <0.10 kU/L (Class 0); Chocolate <0.10 kU/L (Class 0); Codfish <0.10 kU/L (Class 0); Corn <0.10 kU/L (Class 0); Egg, Whole <0.10 kU/L (Class 0); Milk (Cow) <0.10 kU/L (Class 0); Mussels <0.10 kU/L (Class 0); Peanut <0.10 kU/L (Class 0); Pork <0.10 kU/L (Class 0); RNP Ab <0.2 AI (0.0-0.9); SJOGREN'S Anti-SS-A test < 0.2 AI (0.0-0.9); SJOGREN'S Anti-SS-B test < 0.2 AI (0.0-0.9); Salmon <0.10 kU/L (Class 0); Shrimp <0.10 kU/L (Class 0); Smith Ab <0.2 AI (0.0-0.9); Soybean <0.10 kU/L (Class 0); Tuna <0.10 kU/L (Class 0); Wheat <0.10 kU/L (Class 0)
[2023-12-11 05:07] LABS: ACCA 53 units (0-90); ALCA 30 units (0-60); AMCA 74 units (0-100); Albumin 3.6 g/dL (2.9-4.4); Alpha-1-Globulins 0.2 g/dL (0.0-0.4); Alpha-2-Globulins 0.7 g/dL (0.4-1.0); Chromogranin A 38.4 ng/mL (0.0-101.8); Cytoplasmic Ab (C-ANCA) <1:20 titer (Neg:<1:20); Deamidated Gliadin IgA 2 units (0-19); Deamidated Gliadin IgG 2 units (0-19); Endomysial Antibody IgA Negative (Negative); Gamma Globulin 1.2 g/dL (0.4-1.8); Gastrin, Serum 43 pg/mL (0-115); IgG, Quant 1049 mg/dL (586-1602); Immunoglobulin A 122 mg/dL (87-352); Immunoglobulin E 6 IU/mL (6-495); Immunoglobulin G, Subclass 1 706 mg/dL (248-810); Immunoglobulin G, Subclass 2 342 mg/dL (130-555); Immunoglobulin G, Subclass 3 22 mg/dL (15-102); Immunoglobulin G, Subclass 4 30 mg/dL (2-96); Immunoglobulin M 163 mg/dL (26-217); PROEL- TOTAL PROTEIN 6.6 g/dL (6.0-8.5); Perinuclear Ab (P-ANCA) <1:20 titer (Neg:<1:20); gASCA 99 units (0-50); t-Transglutaminase IgA <2 U/mL (0-3)
== END 2023-12-04 17:25 | disposition home or self-care (01) | DRG 249 ==
LOC: ED 15:34 → MS3 17:16
PROVIDERS: Internal Medicine Gastroenterology; Physician Assistant; Admitting Provider Hospitalist; Emergency Provider Emergency Medicine; PCP Internal Medicine; Visit Provider Internal Medicine
DX: R11.2 Nausea with vomiting, unspecified (principal); Z68.39 Body mass index [BMI] 39.0-39.9, adult; E66.9 Obesity, unspecified; K76.0 Fatty (change of) liver, not elsewhere classified; F32.A Depression, unspecified; F17.210 Nicotine dependence, cigarettes, uncomplicated; E78.5 Hyperlipidemia, unspecified; F41.9 Anxiety disorder, unspecified; G89.29 Other chronic pain; Z87.442 Personal history of urinary calculi; Z85.42 Personal history of malignant neoplasm of other parts of uterus; R10.13 Epigastric pain; G47.00 Insomnia, unspecified; Z87.19 Personal history of other diseases of the digestive system; Z79.899 Other long term (current) drug therapy
CPT/HCPCS: 36415; 74181; 80048; 80053; 82784; 82785; 82787; 82941; 83516; 83690; 84165; 85025; 85027; 85652; 86003; 86005; 86036; 86140; 86225; 86235; 86255; 86256; 86316; 86334; 86671; 96361; 96372; 96374; 96375; 96376; 97802; 99221; 99284; J7030; J7120; A4216; G0378; J2405; J3490

== ENCOUNTER 2023-12-09 17:31 | Emergency (ER) | payer MEDICAID, SELFPAY ==
[2023-12-09 17:31] VITALS: BP 131/104; PULSE 94; RESP 14; TEMP 36.8; O2SAT 99; BMI 39.9
--- NOTE | 2023-12-09 17:59 | EDS_ITS ---
HPI <Devika Jarrett RN - Last Filed: 12/09/23 18:34> History of Present Illness Chief Complaint: Syncope Detail of Chief Complaint: Vertigo with syncopal episodes, headache Informant: patient Onset/Context/Timing Onset: Today Context: Sudden Onset Timing: Waxes and wanes Current Severity: 8/10 Maximum Severity: 8/10 Worsened by: Nothing Relieved by: Nothing Narrative Narrative: Patient is a 43-year-old female with past medical history significant for pancreatitis, intractable nausea and vomiting, vertigo, and bipolar who presents to the ED after a syncopal episode following an attack of vertigo. Patient reports she was bending over to put her shoes on and felt a henderson in her head that feels similar to prior vertigo attacks. She then fell forward hitting her right forehead on a table. She does not recall hitting her head on the table. Her boyfriend said he had just walked in the door heard her hit the table and saw her on the floor. Unknown LOC. She now has a headache. She denies any use of blood thinners. She has not taken anything for her headache. She also reports nausea. Patient does take meclizine at home for vertigo. She denies any blurred vision, neck or back pain, chest pain, palpitations, or shortness of breath. Denies recent travel. Of note, she was recently admitted for intractable nausea and vomiting. Prior similar symptoms: Yes Recent Illness/Hospitalization: Yes PFSH <Devika Jarrett RN - Last Filed: 12/09/23 18:34> PFS Medical History Anxiety Bipolar disorder Chronic pain History of renal calculi History of uterine cancer (2006) Hyperlipidemia Incomplete right bundle branch block Kidney stones Lung nodule Migraine Obesity Ovarian cyst Pancreatitis Right tubo-ovarian mass Smoker Ureteral stone with hydronephrosis Home Medications gabapentin 400 mg capsule 400 mg PO TID PRN NEUROPATHY 10/03/20 [History Last Taken 12/02/23] quetiapine 50 mg tablet 50 - 100 mg PO QHS SLEEP 09/07/22 [History Last Taken 12/02/23] aripiprazole 10 mg tablet 10 mg PO DAILY DEPRESSION 10/25/23 [History Last Taken 12/02/23] lorazepam 0.5 mg tablet 0.5 mg PO DAILY PRN ANXIETY 10/25/23 [History Last Taken 12/02/23] diphenhydramine HCl 25 mg capsule (Banophen) 25 mg PO QHS ALLERGIES 12/03/23 [History Last Taken 12/02/23] oxycodone 5 mg tablet 5 mg PO Q4H PRN PRN Pain Score 6-10 3 days #15 tabs 12/04/23 [Rx Last Taken Unknown] Allergy/AdvReac Type Severity Reaction Status Date / Time Iodinated Contrast Media [CT] Allergy Anaphylaxis Verified 12/09/23 17:34 ketorolac tromethamine Allergy Rash Verified 12/09/23 17:34 [From Toradol] metronidazole [From Flagyl] Allergy Hives Verified 12/09/23 17:34 Penicillins Allergy Hives Verified 12/09/23 17:34 dicyclomine [From Bentyl] AdvReac Mild Hives Verified 12/09/23 17:34 aspirin AdvReac Upset Verified 12/09/23 17:34 Stomach Family History Aunt Breast cancer Grandfather CAD (coronary artery disease) Father Heart disease, Onset Age: 73 Triple bypass Mother Heart disease, Onset Age: 62 Other Diabetes Surgical History H/O ovarian cystectomy (09/2019) History of bilateral oophorectomy History of cholecystectomy History of hysterectomy History of tubal ligation Social History household members: none Smoking Status: Current every day smoker tobacco type: cigarettes Tobacco: How many years used: 15 substance use type: does not use ROS <Devika Jarrett RN - Last Filed: 12/09/23 18:34> ROS ED Constitutional Constitutional ED: Denies chills, fever(s) or sweats Eyes Eyes: Denies blurry vision, change in vision or diplopia ENT ENT ED: Denies ear pain, rhinorrhea or sore throat Cardiovascular Cardiovascular: Denies chest pain, orthopnea, palpitations, paroxysmal nocturnal dyspnea or racing heartbeat Respiratory/Chest Respiratory/Chest: Denies cough, dyspnea, dyspnea on exertion, orthopnea or paroxysmal nocturnal dyspnea Gastrointestinal Gastrointestinal: Reports nausea; Denies abdominal pain, constipation, diarrhea, melena or vomiting Genitourinary Genitourinary ED: Denies dysuria, hematuria or urinary frequency Musculoskeletal Musculoskeletal: Denies arthralgias, back pain, myalgias or neck pain Integumentary Denies abscess, Abrasions or rash Neurologic Neurologic: Reports headache(s); Denies paresthesias or weakness Psychiatric Psychiatric: Denies anxiety or depression Hematologic/Lymphatic Hematologic/Lymphatic: Reports systems reviewed and no addt'l complaints, except as documented EXAM <Devika Jarrett RN - Last Filed: 12/09/23 18:34> Physical Exam Narrative Exam Narrative: Patient is awake, alert, cooperative, good historian. Const Vital Signs: 12/09/23 17:31 12/09/23 18:22 12/09/23 17:50 Temperature 98.2 F 98.9 F Temperature Source Temporal Pulse Rate 94 85 Respiratory Rate 14 12 Respiratory Effort Normal Respiratory Pattern Normal Blood Pressure 131/104 H 153/76 H Blood Pressure Mean 113 101 Pulse Ox 99 100 Oxygen Delivery Method Room Air Positive well nourished and well developed General Appearance ED: well developed and NAD HEENT Reports moist mucous membranes HEENT Narrative: Approximately 2.5 cm abrasion noted to right forehead. No bleeding noted. trauma and tenderness Eyes PERRL Neck no lymphadenopathy, supple and no JVD Chest Wall inspection of chest normal and palpation of chest normal Resp normal respiratory effort and clear to auscultation bilaterally Auscultation: Negative for rales, rhonchi or wheezes Cardio regular rate, regular rhythm, S1 normal heart sound and S2 normal heart sound GI normal to inspection, nondistended, normoactive bowel sounds, non-tender and non-distended Palpation: soft Narrative: Denies dysuria, hematuria, urinary frequency Back/Spine Cervical Spine: Negative for cervical spine tenderness Thoracic Spine / Upper Back: Negative for thoracic spinal tenderness Lumbar Spine / Lower Back: Negative for lumbar spinal tenderness Extremity normal to inspection General Extremety ED: Negative for edema General Extremity: Negative for edema Neuro oriented x3 Sensorium / Orientation: alert Motor Exam: strength 5/5 throughout Psych mental status grossly normal Skin Skin Narrative: Abrasion to right forehead Trauma: abrasion <Dr. Grzegorz Roper MD - Last Filed: 12/09/23 18:29> Physical Exam Const Vital Signs: 12/09/23 17:31 12/09/23 18:22 12/09/23 17:50 Temperature 98.2 F 98.9 F Temperature Source Temporal Pulse Rate 94 85 Respiratory Rate 14 12 Respiratory Effort Normal Respiratory Pattern Normal Blood Pressure 131/104 H 153/76 H Blood Pressure Mean 113 101 Pulse Ox 99 100 Oxygen Delivery Method Room Air MDM <Devika Jarrett RN - Last Filed: 12/09/23 18:34> [facility] Narrative Medical decision making narrative: Patient given 1 g of Tylenol for headache. Due to no anticoagulant use and uncertainty of LOC, patient does not need CT of the head. Differential Diagnosis Differential Diagnosis: Concussion Management Discussion w/another healthcare provider: Other (Dr. Roper, ED provider.) Treatment and Re-Evaluation :: Upon reevaluation, patient appears to be resting comfortably in bed. Patient to be discharged home with vertigo and closed head injury. Instructed to follow-up with primary care provider in 1 to 2 weeks as needed. Return to ED for worsening or concerning symptoms. Ice to injured area of head, Tylenol or ibuprofen for headache. Plan of care discussed with patient. Patient agreeable and to be discharged home. <Dr. Grzegorz Roper MD - Last Filed: 12/09/23 18:29> [facility] Narrative Medical decision making narrative: Patient given 1 g of Tylenol for headache. Due to no anticoagulant use and uncertainty of LOC, patient does not need CT of the head. I have personally performed a face to face assessment of the patient and have reviewed the NORMAN Note. I performed a substantive portion of the visit including all aspects of the following. My guzman findings include: History is 43-year-old female history of bipolar and vertigo. She already is on meclizine at home for vertigo. Says she had a vertigo attack today she lost her balance and fell striking her head on the table. She states she was not knocked out. She did not lose consciousness. She denies any neck pain. No other complaints. Exam is [well-appearing 43-year-old female. Vital signs stable afebrile. Pulse ox 9 9% on room air no signs hypoxia. H EENT exam pupils round reactive light extra motions are intact. Small contusion forehead. No sign of hematoma. No laceration. Scalp nontender. Neck and C-spine nontender. Lungs clear to auscultation bilaterally. Heart regular rhythm rate about 80 no murmur. Chest wall and ribs nontender. Abdomen soft nontender. Moving all 4 extremities. Nontender no deformity. Normal strength and sensation. Normal range of motion. Back nontender. Neurologic exam normal. GCS of 15. NIH 0.] Medical Decision Making [43-year-old with known vertigo fell forward and struck her head on a table but did not have loss of consciousness. Exam is benign. She will be discharged home.] Other additions or changes: [None] History & Record Review Discussion w/independent historian: Patient Additional record(s) reviewed:: Prior inpatient record, Prior outpatient record, Prior ED visit and Prior labs Discharge Plan Triage Chief Complaint: Syncope ED Provider: Grzegorz Roper Dx/Rx/DC Orders Clinical Impression: History of vertigo, History of bipolar disorder, CHI (closed head injury) Instructions: ED Head Injury (Adult) Prescriptions: No Action gabapentin 400 MG capsule 400 mg PO TID PRN (Reason: NEUROPATHY ) Patient Comments: PT STATES THEIR DOCTOR RECENTLY UPPED THE DOSE THAT CAN BE TAKEN quetiapine 50 mg tablet 50 - 100 mg PO QHS lorazepam 0.5 mg tablet 0.5 mg PO DAILY PRN (Reason: ANXIETY ) aripiprazole 10 mg tablet 10 mg PO DAILY diphenhydramine HCl [Banophen] 25 mg capsule 25 mg PO QHS oxycodone 5 mg Tablet 5 mg PO Q4H PRN PRN (Reason: Pain Score 6-10) 3 Days Qty: 15 0RF Stand Alone Forms: ED Work / School Excuse Primary Care Provider: Michell Baca Referrals: Michell Baca MD [Primary Care Provider] - Activity Restrictions/Additional Instructions: Follow-up with Dr. Monster matamoros in 1 to 2 weeks as needed. Tylenol or ibuprofen Profen for headache as needed. Ice to injured area of head as needed. Return to ED for worsening or concerning symptoms. Disposition Disposition: Home, Self Care
[2023-12-09] MEDS: Acetaminophen 500 MG Tablet 1000 MG PO (18:21)
[2023-12-09 18:22] VITALS: BP 153/76; PULSE 85; RESP 12; TEMP 37.2; O2SAT 100
== END 2023-12-09 18:37 | disposition home or self-care (01) ==
PROVIDERS: Emergency Provider Emergency Medicine; PCP Internal Medicine; Visit Provider Emergency Medicine
DX: S09.90XA Unspecified injury of head, initial encounter (principal); F31.9 Bipolar disorder, unspecified; F17.210 Nicotine dependence, cigarettes, uncomplicated; Z85.42 Personal history of malignant neoplasm of other parts of uterus; E78.5 Hyperlipidemia, unspecified; F41.9 Anxiety disorder, unspecified; Z79.899 Other long term (current) drug therapy; Z90.6 Acquired absence of other parts of urinary tract; Z90.722 Acquired absence of ovaries, bilateral; Z90.49 Acquired absence of other specified parts of digestive tract; Z90.710 Acquired absence of both cervix and uterus; Z98.51 Tubal ligation status; W18.39XA Other fall on same level, initial encounter; Z87.898 Personal history of other specified conditions
CPT/HCPCS: 99282

== ENCOUNTER → 2023-12-18 | Outpatient (CLI) | payer MEDICAID, SELFPAY ==
--- NOTE | 2023-12-18 11:50 | NM_ITS ---
CLINICAL: 43-year-old female with history of chronic nausea. SEMI-SOLID PHASE 99m Tc SULFUR COLLOID GASTRIC EMPTYING STUDY COMPARISON: MRCP of the abdomen report 12/04/2023 FINDINGS: The patient was administered 1.1 mCi of 99m Tc sulfur colloid mixed with oatmeal and consumed per os. Image acquisitions in the anterior-posterior projections were obtained for 60 minutes. There is prompt visualization of the stomach. There is no gastroesophageal reflux identified. The T ? raw data emptying was calculated to be 56.85 minutes, (Normal: 12-56 minutes). NM/Gastric Emptying Study IMPRESSION: 1. UPPER LIMITS OF NORMAL 99m Tc sulfur colloid semi-solid phase (oatmeal) gastric emptying imaging examination. A. There is borderline normal semi-solid phase gastric emptying compared to normal controls. (Eusebia et al, J Nucl Med Tech 38: 186, 2010). Electronically Signed: Jatin Knight DO at 7:57 EDT ,
== END | disposition home or self-care (01) ==
LOC: NM 11:49
PROVIDERS: PCP Internal Medicine; Referring Provider Internal Medicine; Visit Provider Internal Medicine
DX: R11.2 Nausea with vomiting, unspecified (principal)
CPT/HCPCS: 78264; A9541

== ENCOUNTER 2023-12-24 17:00 | Emergency (ER) | payer MEDICAID, SELFPAY ==
[2023-12-24 17:01] VITALS: BP 123/85; PULSE 84; PULSE 88; RESP 16; TEMP 36.3; O2SAT 98; O2SAT 99; BMI 39.1
[2023-12-24 17:05] VITALS: BP 123/85; PULSE 88; RESP 16; TEMP 36.3; O2SAT 98
== END 2023-12-24 19:10 | disposition left against medical advice (07) ==
LOC: ED 19:13
PROVIDERS: PCP Internal Medicine
DX: R10.9 Unspecified abdominal pain (principal)

== ENCOUNTER 2023-12-26 15:50 | Emergency (ER) | payer MEDICAID, SELFPAY ==
[2023-12-26 15:51] VITALS: BP 139/79; PULSE 100; PULSE 110; RESP 16; RESP 18; TEMP 36.6; O2SAT 96; BMI 39.4
--- NOTE | 2023-12-26 16:02 | CT_ITS ---
EXAM: CT ABDOMEN AND PELVIS WITHOUT INTRAVENOUS CONTRAST CLINICAL INDICATION: Left upper quadrant pain TECHNIQUE: Helically acquired images were obtained of the abdomen and pelvis without intravenous contrast. This CT exam was performed using one or more of the following dose reduction techniques: automated exposure control, adjustment of the mA and/or kV according to patient size, and/or use of iterative reconstruction technique. RADIATION DOSE: CTDIvol = 17.01 mGy, DLP = 828.82 mGy-cm COMPARISON: 04/01/2023 FINDINGS: LOWER THORAX: Unremarkable. Lung bases are clear. No cardiomegaly. No significant pericardial effusion. ABDOMEN: LIVER: Multiple simple hepatic cysts, stable. No required imaging follow-up needed given high likelihood of benign nature. GALLBLADDER AND BILE DUCTS: Cholecystectomy. No intra- or extrahepatic biliary ductal dilation. PANCREAS: Unremarkable. No focal cystic mass. SPLEEN: Unremarkable. Normal size without focal cystic or solid mass. ADRENALS: Unremarkable. No nodules. KIDNEYS AND URETERS: Punctate calculi at the left kidney are not substantially changed. No ureteral calculi. No hydronephrosis. Normal renal size and position. STOMACH AND BOWEL: Unremarkable. No stomach or bowel distention. No focal inflammatory change. PELVIS: APPENDIX: Not seen but no evidence of acute appendicitis. BLADDER: Unremarkable. REPRODUCTIVE: Hysterectomy. No mass. ABDOMEN and PELVIS: INTRAPERITONEAL SPACE: Unremarkable. No ascites or other fluid collection. No free air. BONES/JOINTS: Unremarkable. No suspicious lytic or blastic abnormality. SOFT TISSUES: Unremarkable. No discrete abdominal or pelvic wall hernia. VASCULATURE: Unremarkable. Abdominal aorta is non-dilated. LYMPH NODES: Unremarkable. No enlarged lymph nodes. CT/Abdomen/Pelvis without Cont IMPRESSION: Nonobstructing left nephrolithiasis. No hydronephrosis. Electronically Signed: Cornelio Segovia MD ([place]) at 17:14 EDT Reading Location ID and State: [facility] / [place] , Service support ,
--- NOTE | 2023-12-26 16:06 | EX.ED.DYSGE1 ---
HPI <SVETA Stout - Last Filed: 12/26/23 17:24> History of Present Illness Chief Complaint: Abd Pain Narrative Narrative: Patient is a 43-year-old female with history of chronic abdominal pain, chronic pancreatitis, who was recently admitted to the hospital and discharged December 05, 2023. Patient had an MRCP that was negative. Patient has not seen Dr. Harris again, next date is January 18. Patient states that since she has been discharged she has been having continuous pain, nausea and vomiting. Patient denies any blood in her vomit. Patient states that she is having bowel movements. Patient's last CT scan of the abdomen pelvis was in early November 2023 in [facility]. During the patient's last admission there was no imaging completed other than MRCP. Patient states that she has been feeling the same symptoms throughout. PFSH <SVETA Stout - Last Filed: 12/26/23 17:24> [facility] Medical History Anxiety Bipolar disorder Chronic pain History of renal calculi History of uterine cancer (2006) Hyperlipidemia Incomplete right bundle branch block Kidney stones Lung nodule Migraine Obesity Ovarian cyst Pancreatitis Right tubo-ovarian mass Smoker Ureteral stone with hydronephrosis Home Medications gabapentin 400 mg capsule 400 mg PO TID PRN NEUROPATHY 10/03/20 [History Last Taken 12/02/23] quetiapine 50 mg tablet 50 - 100 mg PO QHS SLEEP 09/07/22 [History Last Taken 12/02/23] aripiprazole 10 mg tablet 10 mg PO DAILY DEPRESSION 10/25/23 [History Last Taken 12/02/23] lorazepam 0.5 mg tablet 0.5 mg PO DAILY PRN ANXIETY 10/25/23 [History Last Taken 12/02/23] diphenhydramine HCl 25 mg capsule (Banophen) 25 mg PO QHS ALLERGIES 12/03/23 [History Last Taken 12/02/23] oxycodone 5 mg tablet 5 mg PO Q4H PRN PRN Pain Score 6-10 3 days #15 tabs 12/04/23 [Rx Last Taken Unknown] metoclopramide HCl 10 mg tablet (Reglan) 10 mg PO Q6H PRN nausea and vomiting #30 tabs 12/26/23 [Rx Last Taken Unknown] Allergy/AdvReac Type Severity Reaction Status Date / Time Iodinated Contrast Media [CT] Allergy Anaphylaxis Verified 12/26/23 15:57 ketorolac tromethamine Allergy Rash Verified 12/26/23 15:57 [From Toradol] metronidazole [From Flagyl] Allergy Hives Verified 12/26/23 15:57 Penicillins Allergy Hives Verified 12/26/23 15:57 dicyclomine [From Bentyl] AdvReac Mild Hives Verified 12/26/23 15:57 aspirin AdvReac Upset Verified 12/26/23 15:57 Stomach Family History Aunt Breast cancer Grandfather CAD (coronary artery disease) Father Heart disease, Onset Age: 73 Triple bypass Mother Heart disease, Onset Age: 62 Other Diabetes Surgical History H/O ovarian cystectomy (09/2019) History of bilateral oophorectomy History of cholecystectomy History of hysterectomy History of tubal ligation Social History household members: none Smoking Status: Current every day smoker tobacco type: cigarettes Tobacco: How many years used: 15 substance use type: does not use ROS <SVETA Stout - Last Filed: 12/26/23 17:24> ROS ED ROS Narrative Constitutional: Negative for fever, chills, weight loss, weakness Eyes: Negative for vision loss, vision change, double vision ENT: Negative for any sore throat, ear pain, congestion Cardiovascular: Negative for any chest pain, tightness, palpitations Respiratory: Negative for any cough, sputum production, hemoptysis, dyspnea, dyspnea on exertion, orthopnea Gastrointestinal: Negative for any diarrhea, constipation, blood in stool, blood in vomit. Positive for abdominal pain, nausea and vomiting : Negative for any urinary frequency, dysuria, retention, blood in urine Muscle skeletal: Negative for any neck pain, back pain Neurological: Negative for any headache, syncope, dizziness Skin: Negative for any rashes, itching, abrasions, lacerations Psychiatric: Negative for any depression, anxiety, stress, suicidal ideation, homicidal ideation Hematologic: Negative for any excessive bruising, easy bleeding EXAM <SVETA Stout - Last Filed: 12/26/23 17:24> Physical Exam Narrative Exam Narrative: Vital signs reviewed. HEET: Head normocephalic atraumatic, TMs clear bilaterally. Posterior pharynx is clear, moist mucous membranes. Nares clear bilaterally. Neck: Supple with no lymphadenopathy or tenderness. No signs of meningismus. Cardiac: Regular rate and rhythm no murmurs gallops or rubs, equal peripheral pulses bilaterally. Respiratory: Lungs clear to auscultation bilaterally. No chest tenderness. Abdomen: Soft, nondistended. No abdominal bruit or pulsatile masses. No hepatosplenomegaly. Tenderness to the left upper, left mid abdomen, no peritoneal signs. Active bowel sounds in all quadrants Extremities: No peripheral edema, no signs of gross trauma or deformity. Active full range of motion of all extremities. Neuro: Cranial nerves II through XII intact, no focal neurological deficits. Skin: Clean dry and intact with no rash, purpura, petechiae, vesicles or pustules. Backs/flank: No CVA tenderness, no midline spinal tenderness, no deformity. Psych: Normal mood and affect. No SI, HI or acute psychosis. Const Vital Signs: 12/26/23 15:51 12/26/23 15:51 12/26/23 17:26 Temperature 97.9 F 97.9 F 98 F Temperature Source Oral Oral Pulse Rate 100 110 H 68 Respiratory Rate 18 16 20 H Blood Pressure 139/79 H 139/79 H 138/63 H Blood Pressure Mean 99 99 88 Pulse Ox 96 96 96 Oxygen Delivery Method Room Air Room Air Positive well nourished and well developed General Appearance ED: well developed <Stefano Hood MD - Last Filed: 12/26/23 18:23> Physical Exam Const Vital Signs: 12/26/23 15:51 12/26/23 15:51 12/26/23 17:26 Temperature 97.9 F 97.9 F 98 F Temperature Source Oral Oral Pulse Rate 100 110 H 68 Respiratory Rate 18 16 20 H Blood Pressure 139/79 H 139/79 H 138/63 H Blood Pressure Mean 99 99 88 Pulse Ox 96 96 96 Oxygen Delivery Method Room Air Room Air MDM <SVETA Stout - Last Filed: 12/26/23 17:24> MDM Lab Data Labs: Laboratory Results - last 24 hr 12/26/23 12/26/23 16:10 17:05 WBC 8.8 RBC 4.51 Hgb 13.3 Hct 41.2 MCV 91.4 MCH 29.5 MCHC 32.3 RDW Std Deviation 41.4 RDW Coeff of Shun 12.5 Plt Count 279 MPV 10.7 Immature Gran % (Auto) 1.000 H Neut % (Auto) 60.4 Lymph % (Auto) 30.8 [place] % (Auto) 5.3 Eos % (Auto) 1.8 Baso % (Auto) 0.7 Absolute Neuts (auto) 5.3 Absolute Lymphs (auto) 2.71 Nucleated RBC % 0 Sodium 140 Potassium 3.5 Chloride 107 Carbon Dioxide 28.0 Anion Gap 5 BUN 8 Creatinine 1.10 H Estim Creat Clear Calc 68.54 Est GFR (MDRD) Af Amer 69 Est GFR (MDRD) Non-Af 57 L BUN/Creatinine Ratio 7.3 L Glucose 127 H Lactic Acid 1.2 Calcium 9.6 Total Bilirubin 0.70 AST 26 ALT 41 Alkaline Phosphatase 116 Total Protein 8.0 Albumin 4.1 Globulin 3.9 Albumin/Globulin Ratio 1.1 Lipase 27 Urine Color Yellow Urine Clarity Sl. Cloudy Urine pH 7.0 Ur Specific [place] 1.010 Urine Protein Negative Urine Glucose (UA) Normal Urine Ketones Negative Urine Occult Blood Negative Urine Nitrite Negative Urine Bilirubin Negative Urine Urobilinogen Normal Ur Leukocyte Esterase Negative Urine RBC 0 SEEN Urine WBC 0-5 SEEN Ur Squamous Epith Cells 0-5 SEEN Urine Bacteria 0 SEEN Urine Mucus 0 SEEN Radiography Diagnostic Testing: Clinical Impression(s) from Imaging Studies Abdomen/Pelvis CT 12/26/23 16:02 IMPRESSION: Nonobstructing left nephrolithiasis. No hydronephrosis. Electronically Signed: Cornelio Segovia MD (Brooks) at 17:14 EDT , Treatment and Re-Evaluation :: Differential diagnosis includes however is not limited to: Acute pancreatitis, acute on chronic pancreatitis, chronic abdominal pain, bowel obstruction, diverticulitis, gastroenteritis Patient appears to be in no obvious respiratory distress, patient's vital signs are stable. Presenting to the emergency department with ongoing pain in the left abdomen as well as nausea and vomiting. Patient will receive a full abdominal workup including CBC CMP lipase as well as a lactic acid. Patient will receive a abdomen pelvis ultrasound without IV contrast secondary to no imaging being completed in the last month. Patient will be reevaluated. Patient be given IV Reglan, Bentyl as well as IV fluids. Looking at Dr. Harris's note, there is concern for a more of a gastroparesis picture. Patient's laboratory values show a normal CBC, patient's chemistries were unremarkable, creatinine is 1.10, this is baseline. Glucose is 127 which is only slightly elevated however baseline. Patient's urinalysis was negative for infection, CT scan of the abdomen pelvis shows a nonobstructing left nephrolithiasis, no hydronephrosis. Negative examination. At this time, the patient did have some relief with Reglan. I spoke with the patient at length regarding following up outpatient for acute on chronic back pain. She will be given Reglan for home, will continue to follow-up with Dr. Harris. She was given strict return precaution. Stable for discharge. <Stefano Hood MD - Last Filed: 12/26/23 18:23> [facility] Narrative Medical decision making narrative: Dr. Hood: I have personally performed a face to face assessment of the patient and have reviewed the [facility] Note. I performed a substantive portion of the visit including all aspects of the following. My guzman findings include: History is abdominal pain with history of chronic pancreatitis versus gastroparesis, recent admission. Exam is afebrile. Vital signs noted. Regular rate and rhythm. Lungs clear to auscultation bilaterally. Abdomen soft with minimal diffuse tenderness. No rebound or guarding. Positive bowel sounds. Medical Decision Making: I reviewed her prior ED visits. Check labs. Check lipase. Check CT. I reviewed the radiology report which shows no acute process, no obstruction, no bowel wall thickening. At this point in time, I am unsure as to the cause of her reported abdominal pain. She states that she was seen at [place] recently and discharged with Vicodin, which did not help her abdominal pain. I do not feel that she requires more narcotic pain medication. I feel she can be discharged to follow-up with gastroenterology for further workup. She states that she had outpatient testing where she ate oatmeal and there was no sign of GERD or other problems. Disposition is discharged home in stable condition. Other additions or changes: [None] History & Record Review Discussion w/independent historian: Patient Additional record(s) reviewed:: Prior ED visit Lab Data Attestation: I reviewed the patient's lab results. Labs: Laboratory Results - last 24 hr 12/26/23 12/26/23 16:10 17:05 WBC 8.8 RBC 4.51 Hgb 13.3 Hct 41.2 MCV 91.4 MCH 29.5 MCHC 32.3 RDW Std Deviation 41.4 RDW Coeff of Shun 12.5 Plt Count 279 MPV 10.7 Immature Gran % (Auto) 1.000 H Neut % (Auto) 60.4 Lymph % (Auto) 30.8 [place] % (Auto) 5.3 Eos % (Auto) 1.8 Baso % (Auto) 0.7 Absolute Neuts (auto) 5.3 Absolute Lymphs (auto) 2.71 Nucleated RBC % 0 Sodium 140 Potassium 3.5 Chloride 107 Carbon Dioxide 28.0 Anion Gap 5 BUN 8 Creatinine 1.10 H Estim Creat Clear Calc 68.54 Est GFR (MDRD) Af Amer 69 Est GFR (MDRD) Non-Af 57 L BUN/Creatinine Ratio 7.3 L Glucose 127 H Lactic Acid 1.2 Calcium 9.6 Total Bilirubin 0.70 AST 26 ALT 41 Alkaline Phosphatase 116 Total Protein 8.0 Albumin 4.1 Globulin 3.9 Albumin/Globulin Ratio 1.1 Lipase 27 Urine Color Yellow Urine Clarity Sl. Cloudy Urine pH 7.0 Ur Specific [place] 1.010 Urine Protein Negative Urine Glucose (UA) Normal Urine Ketones Negative Urine Occult Blood Negative Urine Nitrite Negative Urine Bilirubin Negative Urine Urobilinogen Normal Ur Leukocyte Esterase Negative Urine RBC 0 SEEN Urine WBC 0-5 SEEN Ur Squamous Epith Cells 0-5 SEEN Urine Bacteria 0 SEEN Urine Mucus 0 SEEN Radiography Diagnostic Testing: Clinical Impression(s) from Imaging Studies Abdomen/Pelvis CT 12/26/23 16:02 IMPRESSION: Nonobstructing left nephrolithiasis. No hydronephrosis. Electronically Signed: Cornelio Segovia MD (Brooks) at 17:14 EDT Reading Location ID and State: [facility] / [place] , Service support , Discharge Plan Triage Chief Complaint: Abd Pain ED Midlevel Provider: Carson Ramos ED Provider: Stefano Hood Dx/Rx/DC Orders Clinical Impression: Gastroparesis, Abdominal pain, chronic, generalized Instructions: Gastroparesis Prescriptions: New metoclopramide HCl [Reglan] 10 mg tablet 10 mg PO Q6H PRN (Reason: nausea and vomiting) Qty: 30 0RF No Action gabapentin 400 MG capsule 400 mg PO TID PRN (Reason: NEUROPATHY ) Patient Comments: PT STATES THEIR DOCTOR RECENTLY UPPED THE DOSE THAT CAN BE TAKEN quetiapine 50 mg tablet 50 - 100 mg PO QHS lorazepam 0.5 mg tablet 0.5 mg PO DAILY PRN (Reason: ANXIETY ) aripiprazole 10 mg tablet 10 mg PO DAILY diphenhydramine HCl [Banophen] 25 mg capsule 25 mg PO QHS oxycodone 5 mg Tablet 5 mg PO Q4H PRN PRN (Reason: Pain Score 6-10) 3 Days Qty: 15 0RF Primary Care Provider: Michell Baca Referrals: Michell Baca MD [Primary Care Provider] - Bola Harris DO [Med Staff - Active Staff] - Activity Restrictions/Additional Instructions: Please follow-up with Dr. Harris. Disposition Disposition: Home, Self Care Discharge Date/Time: 12/26/23 17:51
[2023-12-26] MEDS: Metoclopramide 10 MG/2 ML Vial IV (16:13)
[2023-12-26] MEDS: 0.9% Normal Saline (1000mL) 1,000 ML 1000 ML IV (16:13)
[2023-12-26 16:19] LABS: Absolute Lymphocyte Count 2.71 X10^3/uL (0.83-4.51); Absolute Neutrophil Count 5.3 X10^3/uL (2.0-7.7); Basophil# 0.06 X10^3/uL; Basophil% 0.7 % (0-1); Eosinophil# 0.16 X10^3/uL; Eosinophils% 1.8 % (0-5); Hematocrit 41.2 % (37-47); Hemoglobin 13.3 g/dL (12.0-15.0); Lymphocyte # 2.71 X10^3/ul (0.83-4.51); Lymphocyte % 30.8 % (19-41); Mean Corp Hgb Conc 32.3 g/dL (32-36); Mean Corpuscular Hgb 29.5 pg (27.0-32.0); Mean Corpuscular Volume 91.4 fL (81-99); Mean Platelet Vol. 10.7 fl (6.2-12.0); Monocyte# 0.47 X10^3/uL; Monocyte% 5.3 % (0-10); NRBC Flagged by Analyzer 0 % (0-5); Neutrophil # 5.31 X10^3/uL (2.7-7.7); Neutrophil % 60.4 % (47-70); Platelet Count 279 K/mm3 (150-450); RBC Distribution Width CV 12.5 % (11.6-14.6); RBC Distribution Width SD 41.4 fl (35.1-43.9); Red Blood Count 4.51 M/mm3 (4.2-5.4); White Blood Count 8.8 K/mm3 (4.4-11.0)
[2023-12-26 16:35] LABS: ALB/GLOB Ratio 1.1 RATIO (0.9-2.4); AST(SGOT) 26 U/L (15-37); Alanine Aminotransfer ALT/SGPT 41 U/L (13-56); Albumin, Serum 4.1 g/dL (3.2-5.0); Alkaline Phosphatase 116 U/L (45-117); Anion Gap 5 (5-15); BUN 8 mg/dL (7-18); BUN/Creat Ratio 7.3 RATIO (10-20); Calcium,Total 9.6 mg/dL (8.5-10.1); Chloride 107 mmol/L (98-107); EST Glomerular Filtration Rate 57 mL/min (>60); Est Glom Filt Rate - Afr Amer 69 mL/min (>60); Estimated Creatinine Clearance 68.54 ml/min; Globulin 3.9 g/dL (2.2-4.2); Glucose 127 mg/dL (74-106); Lipase 27 U/L (13-75); Potassium 3.5 mmol/L (3.5-5.1); Sodium Level 140 mmol/L (136-145)
[2023-12-26 16:40] LABS: Lactic Acid 1.2 mmol/L (0.4-1.9)
[2023-12-26 17:07] LABS: Bacteria 0 SEEN /hpf (None Seen); Mucous, Urine 0 SEEN /hpf (<or=2+); Red Blood Cells-Urine 0 SEEN /hpf (0-5)
[2023-12-26 17:10] LABS: Color, Urine Yellow (Yellow); Glucose, Dipstick Normal (Normal); Ketone-Dipstick Negative (Negative); Leukocyte Esterase-Dipstick Negative /ul (Negative); Nitrite-Dipstick Negative (Negative); Occult Blood-Urine Negative /ul (Negative); Protein-Dipstick Negative (Negative); Urine Bilirubin Dipstick Negative (Negative); Urine Clarity Sl. Cloudy (Clear); Urine Urobilinogen Normal (Normal)
[2023-12-26 17:26] VITALS: BP 138/63; PULSE 68; RESP 20; TEMP 36.6; O2SAT 96
[2023-12-26 17:53] LABS: Squamous Epithelial Cells - UA 0-5 SEEN /hpf (5-10); White Blood Cells 0-5 SEEN /hpf (0-5)
== END 2023-12-26 17:51 | disposition home or self-care (01) ==
PROVIDERS: Nurse Practitioner; Emergency Provider Emergency Medicine; PCP Internal Medicine; Visit Provider Emergency Medicine
DX: K31.84 Gastroparesis (principal); R10.84 Generalized abdominal pain; G89.29 Other chronic pain; F17.210 Nicotine dependence, cigarettes, uncomplicated; Z79.899 Other long term (current) drug therapy
CPT/HCPCS: 74176; 80053; 81001; 83605; 83690; 85025; 96361; 96374; 99282; A4216

== ENCOUNTER → 2024-01-15 | Outpatient (CLI) | payer MEDICAID, SELFPAY ==
[2024-01-15 13:13] LABS: Erythrocyte Sedimentation Rate 10 mm/hr (0-30)
[2024-01-15 13:49] LABS: PTHIN 73.1 pg/mL (18.4-80.1)
[2024-01-15 13:55] LABS: CRP 9.07 mg/L (0.0-3.0); Thyroid Stim Hormone (TSH) 2.43 uIU/mL (0.358-3.74); Triglycerides 189 mg/dL
== END | disposition home or self-care (01) ==
PROVIDERS: PCP Internal Medicine; Referring Provider Internal Medicine Gastroenterology; Visit Provider Internal Medicine Gastroenterology
DX: R11.2 Nausea with vomiting, unspecified (principal); K85.90 Acute pancreatitis without necrosis or infection, unspecified; K58.9 Irritable bowel syndrome, unspecified
CPT/HCPCS: 36415; 82384; 82784; 82787; 82941; 83516; 83970; 84443; 84478; 85652; 86140; 86255; 86301; 86316; 86480

== ENCOUNTER 2024-01-16 14:55 | Emergency (ER) | payer MEDICAID, SELFPAY ==
[2024-01-16 14:57] VITALS: BP 123/83; PULSE 74; RESP 16; TEMP 36.5; O2SAT 96
--- NOTE | 2024-01-16 16:32 | EX.ED.DYSGE1 ---
HPI History of Present Illness Chief Complaint: Abd Pain Detail of Chief Complaint: Left-sided abdominal pain Informant: patient Onset/Context/Timing Onset: Weeks Timing: Continuous and Waxes and wanes Quality: Pain Location: Left side of the abdomen Current Severity: Mild Maximum Severity: Moderate Worsened by: Palpation Relieved by: Nothing Associated Symptoms Associated Symptoms: Told by Dr. Harris that she has a kidney stone Narrative Narrative: Patient is a 43-year-old woman with history of elevated lipase, who is status postcholecystectomy. Per Dr. Harris's note there is evidence of elevated lipase dating back to 2021 however there is no evidence of acute pancreatitis on any imaging studies. Patient was recently seen here. Apparently she has a care plan. The care plan that I have access to is 2018. Documentation is available is that patient has mental health issues. Patient is a poor informant. She denies headache, visual, ocular auditory symptoms. She denies cardiac respiratory symptoms. She does complain abdominal pain. She does report nausea. She does endorse cholecystectomy. She states she has been told she has pancreatitis. However Dr. Harris's notes there is no evidence of pancreatitis by imaging. She has had no black or maroon-colored stool. She denies diarrhea. She did have a recent CAT scan of the abdomen which revealed a renal calculus. She states the pain is on the left side. Palpation makes it worse. She does endorse dysuria and frequency. She denies trauma. Denies skin lesions. She denies constitutional symptoms. Prior similar symptoms: Yes (December 2023) Recent Illness/Hospitalization: Yes [facility] Medical History Abdominal pain Anxiety Bipolar disorder Chronic pain History of pancreatitis History of renal calculi History of uterine cancer (2006) Hyperlipidemia Incomplete right bundle branch block Intractable nausea and vomiting Kidney stones Lung nodule Migraine Obesity Ovarian cyst Pancreatitis Right tubo-ovarian mass Smoker Ureteral stone with hydronephrosis Home Medications gabapentin 400 mg capsule 400 mg PO TID PRN NEUROPATHY 10/03/20 [History Last Taken 12/02/23] quetiapine 50 mg tablet 50 - 100 mg PO QHS SLEEP 09/07/22 [History Last Taken 12/02/23] aripiprazole 10 mg tablet 10 mg PO DAILY DEPRESSION 10/25/23 [History Last Taken 12/02/23] lorazepam 0.5 mg tablet 0.5 mg PO DAILY PRN ANXIETY 10/25/23 [History Last Taken 12/02/23] diphenhydramine HCl 25 mg capsule (Banophen) 25 mg PO QHS ALLERGIES 12/03/23 [History Last Taken 12/02/23] oxycodone 5 mg tablet 5 mg PO Q4H PRN PRN Pain Score 6-10 3 days #15 tabs 12/04/23 [Rx Last Taken Unknown] metoclopramide HCl 10 mg tablet (Reglan) 10 mg PO Q6H PRN nausea and vomiting #30 tabs 12/26/23 [Rx Last Taken Unknown] tramadol 50 mg tablet 50 mg PO Q6H PRN pain 5 days #20 tabs 01/15/24 [Rx Last Taken Unknown] ciprofloxacin HCl 500 mg tablet 500 mg PO BID #14 TABLETS 01/16/24 [Rx Last Taken Unknown] Allergy/AdvReac Type Severity Reaction Status Date / Time Iodinated Contrast Media [CT] Allergy Anaphylaxis Verified 01/16/24 14:56 ketorolac tromethamine Allergy Rash Verified 01/16/24 14:56 [From Toradol] metronidazole [From Flagyl] Allergy Hives Verified 01/16/24 14:56 Penicillins Allergy Hives Verified 01/16/24 14:56 dicyclomine [From Bentyl] AdvReac Mild Hives Verified 01/16/24 14:56 aspirin AdvReac Upset Verified 01/16/24 14:56 Stomach Family History Aunt Breast cancer Grandfather CAD (coronary artery disease) Father Heart disease, Onset Age: 73 Triple bypass Mother Heart disease, Onset Age: 62 Other Diabetes Surgical History H/O ovarian cystectomy (09/2019) History of bilateral oophorectomy History of cholecystectomy History of hysterectomy History of tubal ligation Social History household members: none Smoking Status: Current every day smoker tobacco type: cigarettes Tobacco: How many years used: 15 substance use type: does not use ROS ROS ED Constitutional Constitutional ED: Denies chills, fever(s), subjective, sweats or weight loss Eyes Eyes: Denies blurry vision, change in vision or diplopia ENT ENT ED: Denies ear pain, rhinorrhea or sore throat Cardiovascular Cardiovascular: Denies chest pain, palpitations or racing heartbeat Respiratory/Chest Respiratory/Chest: Denies cough, dyspnea or dyspnea on exertion Gastrointestinal Gastrointestinal: Reports abdominal pain and nausea; Denies constipation, diarrhea, melena or vomiting Genitourinary Genitourinary ED: Reports dysuria and urinary frequency; Denies hematuria Musculoskeletal Musculoskeletal: Denies arthralgias, back pain or myalgias Integumentary Reports rash Neurologic Neurologic: Denies headache(s) or paresthesias Psychiatric Psychiatric: Reports depression Hematologic/Lymphatic Hematologic/Lymphatic: Reports systems reviewed and no addt'l complaints, except as documented EXAM Physical Exam Const Vital Signs: 01/16/24 14:57 01/16/24 16:56 01/16/24 17:49 Temperature 97.7 F L Temperature Source Temporal Pulse Rate 74 67 66 Respiratory Rate 16 16 16 Blood Pressure 123/83 H Blood Pressure Mean 96 Pulse Ox 96 97 98 Oxygen Delivery Method Room Air Room Air Room Air Positive well nourished, well developed and obese General Appearance ED: well developed, NAD and pallor Nutritional Appearance: obese HEENT Reports moist mucous membranes HEENT Narrative: Head is atraumatic normocephalic. Ears normal. Nares patent. Posterior pharynx is normal. Eyes PERRL and EOMs intact bilaterally General Eye ED: Negative for pale conjunctiva or scleral icterus Neck no lymphadenopathy, supple and no JVD Chest Wall inspection of chest normal and palpation of chest normal Resp normal respiratory effort and clear to auscultation bilaterally Cardio regular rate, regular rhythm, S1 normal heart sound, S2 normal heart sound and no murmurs GI normal to inspection, nondistended, normoactive bowel sounds, non-distended and no masses; Negative for non-tender or hepatosplenomegaly Palpation: soft and tender LUQ Back/Spine no CVA tenderness Extremity normal to inspection General Extremety ED: Negative for edema or tenderness General Extremity: Negative for edema Neuro oriented x3 and CN's II-XII intact bilaterally Sensorium / Orientation: alert Psych Mood & Affect: depressed Skin no rashes or lesions noted, no wounds and skin turgor normal General Skin Exam: elasticity normal and pallor; Negative for jaundice MDM MDM MDM Narrative Medical decision making narrative: With history of elevated lipase and left upper quadrant pain will obtain lipase as well as liver enzymes CBC and electrolyte panel. Since patient has a care plan she was not given any opiate analgesic. She reports that the tramadol does not help. She reports a rash to ketorolac. She reports hives to Bentyl. Will obtain UA because of her urinary symptoms. Patient was informed a kidney stone does not cause pain. She informed me that Dr. Harris said she had a kidney stone. I informed her I am aware she has a kidney stone. Again I told her that kidney stones do not cause pain. The pain probably is due to something else and will order appropriate test to determine the etiology if possible. History & Record Review Additional record(s) reviewed:: Prior outpatient record, Prior ED visit and Prior labs Lab Data Attestation: I reviewed the patient's lab results. Lab results narrative: CBC is normal. Comprehensive metabolic panel is remarkable slight elevation of creatinine at 1.12 with an estimated GFR of 56. Urine is consistent with infection. Urine culture was sent. Based on patient's allergies and most likely organism patient was placed on ciprofloxacin. She has allergy to tetracycline, penicillin with hives. Labs: Laboratory Results - last 24 hr 01/16/24 01/16/24 16:35 16:40 WBC 7.7 RBC 4.44 Hgb 13.2 Hct 41.4 MCV 93.2 MCH 29.7 MCHC 31.9 L RDW Std Deviation 43.6 RDW Coeff of Shun 12.8 Plt Count 246 MPV 10.5 Immature Gran % (Auto) 0.400 Neut % (Auto) 52.7 Lymph % (Auto) 37.1 [place] % (Auto) 6.7 Eos % (Auto) 2.7 Baso % (Auto) 0.4 Absolute Neuts (auto) 4.0 Absolute Lymphs (auto) 2.84 Nucleated RBC % 0 Sodium 140 Potassium 3.7 Chloride 106 Carbon Dioxide 32.0 Anion Gap 2 L BUN 17 Creatinine 1.12 H Est GFR (MDRD) Af Amer 68 Est GFR (MDRD) Non-Af 56 L BUN/Creatinine Ratio 15.2 Glucose 95 Calcium 9.1 Total Bilirubin 0.70 AST 18 ALT 31 Alkaline Phosphatase 105 Total Protein 7.9 Albumin 4.5 Globulin 3.4 Albumin/Globulin Ratio 1.3 Lipase 39 Urine Color Yellow Urine Clarity Sl. Cloudy Urine pH 5.0 Ur Specific [place] 1.030 Urine Protein 30 H Urine Glucose (UA) Normal Urine Ketones 5 H Urine Occult Blood 10 H Urine Nitrite Negative Urine Bilirubin Negative Urine Urobilinogen Normal Ur Leukocyte Esterase Negative Urine RBC 0-5 SEEN Urine WBC 0-5 SEEN Ur Squamous Epith Cells 5-10 SEEN Urine Bacteria 2+ Urine Mucus 0 SEEN Discharge Plan Triage Chief Complaint: Abd Pain ED Provider: Mor Painter Dx/Rx/DC Orders Clinical Impression: Pyelonephritis of left kidney, History of uterine cancer, Hyperlipidemia, Left renal stone Instructions: ED Pyelonephritis, Female (Adult) Prescriptions: New ciprofloxacin HCl [ciprofloxacin HCl] 500 mg tablet 500 mg PO BID Qty: 14 0RF No Action tramadol 50 mg tablet 50 mg PO Q6H PRN (Reason: pain) 5 Days Qty: 20 0RF gabapentin 400 MG capsule 400 mg PO TID PRN (Reason: NEUROPATHY ) Patient Comments: PT STATES THEIR DOCTOR RECENTLY UPPED THE DOSE THAT CAN BE TAKEN quetiapine 50 mg tablet 50 - 100 mg PO QHS lorazepam 0.5 mg tablet 0.5 mg PO DAILY PRN (Reason: ANXIETY ) aripiprazole 10 mg tablet 10 mg PO DAILY diphenhydramine HCl [Banophen] 25 mg capsule 25 mg PO QHS oxycodone 5 mg Tablet 5 mg PO Q4H PRN PRN (Reason: Pain Score 6-10) 3 Days Qty: 15 0RF metoclopramide HCl [Reglan] 10 mg tablet 10 mg PO Q6H PRN (Reason: nausea and vomiting) Qty: 30 0RF Primary Care Provider: Michell Baca Referrals: Michell Baca MD [Primary Care Provider] - 3-5 Days Disposition Disposition: Home, Self Care
[2024-01-16] MEDS: Ondansetron 4 MG/2 ML Vial IV (16:42)
[2024-01-16 16:49] LABS: Mucous, Urine 0 SEEN /hpf (<or=2+)
[2024-01-16 16:49] LABS: Absolute Lymphocyte Count 2.84 X10^3/uL (0.83-4.51); Basophil# 0.03 X10^3/uL; Basophil% 0.4 % (0-1); Eosinophil# 0.21 X10^3/uL; Eosinophils% 2.7 % (0-5); Hematocrit 41.4 % (37-47); Hemoglobin 13.2 g/dL (12.0-15.0); Lymphocyte # 2.84 X10^3/ul (0.83-4.51); Lymphocyte % 37.1 % (19-41); Mean Corp Hgb Conc 31.9 g/dL (32-36); Mean Corpuscular Hgb 29.7 pg (27.0-32.0); Mean Corpuscular Volume 93.2 fL (81-99); Mean Platelet Vol. 10.5 fl (6.2-12.0); Monocyte# 0.51 X10^3/uL; Monocyte% 6.7 % (0-10); NRBC Flagged by Analyzer 0 % (0-5); Neutrophil # 4.04 X10^3/uL (2.7-7.7); Neutrophil % 52.7 % (47-70); Platelet Count 246 K/mm3 (150-450); RBC Distribution Width CV 12.8 % (11.6-14.6); RBC Distribution Width SD 43.6 fl (35.1-43.9); Red Blood Count 4.44 M/mm3 (4.2-5.4); White Blood Count 7.7 K/mm3 (4.4-11.0)
[2024-01-16 16:50] LABS: Color, Urine Yellow (Yellow); Glucose, Dipstick Normal (Normal); Ketone-Dipstick 5 mg/dl (Negative); Leukocyte Esterase-Dipstick Negative /ul (Negative); Nitrite-Dipstick Negative (Negative); Occult Blood-Urine 10 /ul (Negative); Protein-Dipstick 30 mg/dl (Negative); Urine Bilirubin Dipstick Negative (Negative); Urine Clarity Sl. Cloudy (Clear); Urine Urobilinogen Normal (Normal)
--- NOTE | 2024-01-16 16:55 | ED.RN ---
PT INITIALLY NOT TO RECIEVE PAIN MEDICATION D/T ONGOING CARE PLAN. AT THIS TIME CARE PLAN IS UNABLE TO BE VIEWED. PT WILL BE GIVEN PAIN MEDICATION
[2024-01-16 16:56] VITALS: PULSE 67; RESP 16; O2SAT 97
[2024-01-16 16:56] LABS: Red Blood Cells-Urine 0-5 SEEN /hpf (0-5); Squamous Epithelial Cells - UA 5-10 SEEN /hpf (5-10); White Blood Cells 0-5 SEEN /hpf (0-5)
[2024-01-16 16:57] LABS: Bacteria 2+ /hpf (None Seen)
[2024-01-16] MEDS: Morphine 4 MG/ML Syringe IV (16:57)
[2024-01-16 17:07] LABS: ALB/GLOB Ratio 1.3 RATIO (0.9-2.4); AST(SGOT) 18 U/L (15-37); Alanine Aminotransfer ALT/SGPT 31 U/L (13-56); Albumin, Serum 4.5 g/dL (3.2-5.0); Alkaline Phosphatase 105 U/L (45-117); Anion Gap 2 (5-15); BUN 17 mg/dL (7-18); BUN/Creat Ratio 15.2 RATIO (10-20); Calcium,Total 9.1 mg/dL (8.5-10.1); Chloride 106 mmol/L (98-107); Creatinine, Serum 1.12 mg/dL (0.55-1.02); EST Glomerular Filtration Rate 56 mL/min (>60); Est Glom Filt Rate - Afr Amer 68 mL/min (>60); Globulin 3.4 g/dL (2.2-4.2); Glucose 95 mg/dL (74-106); Lipase 39 U/L (13-75); Potassium 3.7 mmol/L (3.5-5.1); Protein, Total 7.9 g/dL (6.4-8.2); Sodium Level 140 mmol/L (136-145)
[2024-01-16 17:49] VITALS: PULSE 66; RESP 16; O2SAT 98
[2024-01-16] MEDS: Ciprofloxacin 500 MG Tablet PO (18:23)
== END 2024-01-16 18:29 | disposition home or self-care (01) ==
PROVIDERS: Emergency Provider Emergency Medicine; PCP Internal Medicine; Visit Provider Emergency Medicine
DX: N12 Tubulo-interstitial nephritis, not specified as acute or chronic (principal); F31.9 Bipolar disorder, unspecified; E78.5 Hyperlipidemia, unspecified; N20.0 Calculus of kidney; F17.210 Nicotine dependence, cigarettes, uncomplicated; Z85.42 Personal history of malignant neoplasm of other parts of uterus; Z90.49 Acquired absence of other specified parts of digestive tract; Z79.899 Other long term (current) drug therapy; F41.9 Anxiety disorder, unspecified; Z90.722 Acquired absence of ovaries, bilateral; Z90.6 Acquired absence of other parts of urinary tract; Z90.710 Acquired absence of both cervix and uterus; Z98.51 Tubal ligation status
CPT/HCPCS: 80053; 81001; 83690; 85025; 87086; 96374; 96375; 99283; A4216; J2405

== ENCOUNTER → 2024-01-22 | Outpatient (CLI) | payer MEDICAID, SELFPAY | END | disposition home or self-care (01) | LOC: LAB 16:30 | PROVIDERS: PCP Internal Medicine; Referring Provider Internal Medicine Gastroenterology; Visit Provider Internal Medicine Gastroenterology | DX: K58.9 Irritable bowel syndrome, unspecified (principal); R11.2 Nausea with vomiting, unspecified; K85.90 Acute pancreatitis without necrosis or infection, unspecified | CPT/HCPCS: 82653; 83993; 87177; 87209; 87329; 87506 ==

== ENCOUNTER 2024-02-17 13:19 | Emergency (ER) | payer MEDICAID, SELFPAY ==
[2024-02-17 13:19] VITALS: BP 113/58; PULSE 79; RESP 16; TEMP 36.8; O2SAT 97; BMI 39.5
--- NOTE | 2024-02-17 13:48 | VDLE_ITS ---
Reason For Study: Left leg pain RIGHT LEFT CFV is compressible, spontaneous, phasic, GSV is normal. competent and demonstrates normal CFV is compressible, spontaneous, phasic, augmentation. competent, and demonstrates normal Procedure augmentation. This is a venous duplex using B-mode, color FV is compressible, spontaneous, phasic, flow and spectral Doppler. competent and demonstrates normal Exam performed portable in ED. augmentation. A preliminary report was called and/or faxed POP V is compressible, spontaneous, phasic, to Dr. Borjas. competent and demonstrates normal augmentation. T/P Trunk is compressible. PTV is compressible. LT PerV is compressible. VL/Venous Duplex US, Unilateral Interpretation Summary Deep veins of the left lower extremity are patent and compressible segmentally. There is no evidence of left lower extremity deep vein thrombosis. Valvular competence appears intac t within the proximal deep venous system on the left . The left great saphenous vein appears patent a nd compressible segmentally. The right common femoral vein is patent and compressible . Ordering Physician: Eleanor Borjas Referring Physician: Michell Baca M.D. Performed By: Rupal Gayle RVT
--- NOTE | 2024-02-17 13:50 | EX.ED.DYSGE1 ---
HPI History of Present Illness Chief Complaint: Lower Extremity Injury Detail of Chief Complaint: Left leg pain Informant: patient Onset/Context/Timing Onset: Days Narrative Narrative: Patient presents with 3-day history of left lower leg pain. She denies any known injury. Today she noted some swelling and was concerned for possible blood clot. She called Dr. Harris's office who recommended she come in to rule out DVT. Patient tells me that Dr. Harris recently did some blood work that showed risk of clotting. She is scheduled to see a director pharmacovigilance. She denies any known history of blood clots. [facility] Medical History Anxiety Kidney stones Smoker Abdominal pain Intractable nausea and vomiting History of pancreatitis Pancreatitis Bipolar disorder Lung nodule Migraine Chronic pain Ovarian cyst Obesity Incomplete right bundle branch block Hyperlipidemia History of uterine cancer (2006) Right tubo-ovarian mass Ureteral stone with hydronephrosis History of renal calculi Home Medications ?Medication ?Instructions ?Recorded ?Last Taken ?Type gabapentin 400 mg capsule 400 mg PO TID PRN NEUROPATHY 10/03/20 12/02/23 History quetiapine 50 mg tablet 50 - 100 mg PO QHS SLEEP 09/07/22 12/02/23 History aripiprazole 10 mg tablet 10 mg PO DAILY DEPRESSION 10/25/23 12/02/23 History diphenhydramine HCl 25 mg capsule 25 mg PO QHS ALLERGIES 12/03/23 12/02/23 History (Banophen) oxycodone 5 mg tablet 5 mg PO Q4H PRN PRN Pain Score 12/04/23 Unknown Rx 6-10 3 days #15 tabs metoclopramide HCl 10 mg tablet 10 mg PO Q6H PRN nausea and 12/26/23 Unknown Rx (Reglan) vomiting #30 tabs ciprofloxacin HCl 500 mg tablet 500 mg PO BID #14 TABLETS 01/16/24 Unknown Rx lorazepam 0.5 mg tablet 0.5 mg PO DAILY PRN ANXIETY #7 01/26/24 Unknown Rx tabs mesalamine 1.2 gram tablet,delayed 2.4 g (2 x 1.2 gram) PO DAILY 30 02/09/24 Unknown Rx release days #60 tabs Allergy/AdvReac Type Severity Reaction Status Date / Time Iodinated Contrast Media (CT) Allergy Anaphylaxis Verified 02/17/24 13:23 ketorolac tromethamine (From Allergy Rash Verified 02/17/24 13:23 Toradol) metronidazole (From Flagyl) Allergy Hives Verified 02/17/24 13:23 Penicillins Allergy Hives Verified 02/17/24 13:23 dicyclomine (From Bentyl) AdvReac Mild Hives Verified 02/17/24 13:23 aspirin AdvReac Upset Verified 02/17/24 13:23 Stomach Family History Aunt Breast cancer Grandfather CAD (coronary artery disease) Father Heart disease, Onset Age: 73 Triple bypass Mother Heart disease, Onset Age: 62 Other Diabetes Surgical History History of cholecystectomy H/O ovarian cystectomy (09/2019) History of bilateral oophorectomy History of hysterectomy History of tubal ligation Social History household members: none Smoking Status: Current every day smoker tobacco type: cigarettes Tobacco: How many years used: 15 substance use type: does not use ROS ROS ED Constitutional Constitutional ED: Denies chills or fever(s) Eyes Eyes: Denies discharge from eye(s) ENT ENT ED: Denies discharge from eye(s), rhinorrhea or sore throat Cardiovascular Cardiovascular: Denies chest pain Respiratory/Chest Respiratory/Chest: Denies cough or dyspnea Gastrointestinal Gastrointestinal: Denies abdominal pain, nausea or vomiting Musculoskeletal Musculoskeletal: Reports extremity pain; Denies back pain Integumentary Denies Abrasions or rash Neurologic Neurologic: Denies headache(s) or weakness Psychiatric Psychiatric: Denies anxiety or depression Allergic/Immunologic Allergic/Immunologic ED: Denies lip swelling or urticaria EXAM Physical Exam Const Vital Signs: 02/17/24 13:19 Temperature 98.2 F Temperature Source Oral Pulse Rate 79 Respiratory Rate 16 Blood Pressure 113/58 L Blood Pressure Mean 76 Pulse Ox 97 Positive well nourished and well developed General Appearance ED: well developed HEENT Reports moist mucous membranes Eyes EOMs intact bilaterally Chest Wall inspection of chest normal and palpation of chest normal Resp normal respiratory effort and clear to auscultation bilaterally Cardio regular rate and regular rhythm GI non-tender Palpation: soft Extremity Extremity Narrative: Left calf tenderness to palpation. No overlying skin change. Minimal if any edema noted to the left leg versus right. Strong distal pulses. No tenderness over the foot itself. No tenderness at the knee or hip. Neuro oriented x3 and no sensory deficits noted Motor Exam: strength 5/5 throughout Psych mental status grossly normal Skin no rashes or lesions noted MDM MDM MDM Narrative Medical decision making narrative: Left tib-fib x-rays to be obtained to evaluate for any acute bony abnormality. Venous ultrasound of the left leg will be obtained to evaluate for DVT. Radiography Diagnostic Testing: Clinical Impression(s) from Imaging Studies Tibia/Fibula X-Ray 02/17/24 13:58 IMPRESSION: Soft tissue swelling. Electronically Signed: Genaro Hines MD at 14:09 EDT , Treatment and Re-Evaluation :: Tib-fib x-ray per my interpretation feels no acute abnormalities. Radiology interpretation reviewed and documents only soft tissue swelling. Venous ultrasound was performed and reveals no evidence of DVT. Test results discussed with the patient. Chemo wrap is applied over the lower leg to help with any swelling. We discussed ambulating to help keep blood flow and elevating her feet when sitting at rest. I will get her a dose of ibuprofen prior to discharge. Discharge Plan Triage Chief Complaint: Lower Extremity Injury ED Provider: Eleanor Borjas Dx/Rx/DC Orders Clinical Impression: Leg pain Instructions: ED Contusion, Lower Extremity, ED Pain, Acute, Uncertain Cause Prescriptions: No Action gabapentin 400 MG capsule 400 mg PO TID PRN (Reason: NEUROPATHY ) Patient Comments: PT STATES THEIR DOCTOR RECENTLY UPPED THE DOSE THAT CAN BE TAKEN quetiapine 50 mg tablet 50 - 100 mg PO QHS aripiprazole 10 mg tablet 10 mg PO DAILY diphenhydramine HCl [Banophen] 25 mg capsule 25 mg PO QHS oxycodone 5 mg Tablet 5 mg PO Q4H PRN PRN (Reason: Pain Score 6-10) 3 Days Qty: 15 0RF metoclopramide HCl [Reglan] 10 mg tablet 10 mg PO Q6H PRN (Reason: nausea and vomiting) Qty: 30 0RF ciprofloxacin HCl [ciprofloxacin HCl] 500 mg tablet 500 mg PO BID Qty: 14 0RF lorazepam 0.5 mg tablet 0.5 mg PO DAILY PRN (Reason: ANXIETY ) Qty: 7 0RF mesalamine 1.2 gram tablet,delayed release (DR/EC) 2.4 g PO DAILY 30 Days Qty: 60 1RF Primary Care Provider: Michell Baca Referrals: Michell Baca MD [Primary Care Provider] - 1 Week if not improving Print Language: [place] Disposition Disposition: Home, Self Care
--- NOTE | 2024-02-17 13:58 | RAD_ITS ---
STUDY: X-RAY - LEFT TIBIA AND FIBULA REASON FOR EXAM: Female, 43 years old. 3 day history of pain and swelling. No known injury. TECHNIQUE: 2 view(s) of the tibia and fibula were obtained. COMPARISON: None. FINDINGS: Normal visualized tibia. Normal visualized fibula. Soft tissue swelling. RAD/Tibia & Fibula 2 Views IMPRESSION: Soft tissue swelling. Electronically Signed: Genaro Hines MD at 14:09 EDT ,
[2024-02-17] MEDS: Ibuprofen 600 MG Tablet PO (14:26)
[2024-02-17 14:27] VITALS: BP 104/70; PULSE 72; RESP 16; TEMP 36.8; O2SAT 99
== END 2024-02-17 14:30 | disposition home or self-care (01) ==
PROVIDERS: Emergency Provider Emergency Medicine; PCP Internal Medicine; Visit Provider Emergency Medicine
DX: M79.605 Pain in left leg (principal); F17.210 Nicotine dependence, cigarettes, uncomplicated; M79.89 Other specified soft tissue disorders; Z90.49 Acquired absence of other specified parts of digestive tract; Z98.51 Tubal ligation status; Z90.710 Acquired absence of both cervix and uterus; Z82.49 Family history of ischemic heart disease and other diseases of the circulatory system; E78.5 Hyperlipidemia, unspecified; Z87.442 Personal history of urinary calculi; Z85.42 Personal history of malignant neoplasm of other parts of uterus
CPT/HCPCS: 73590; 93971; 99282

== ENCOUNTER 2024-02-24 17:02 | Emergency (ER) | payer MEDICAID, SELFPAY ==
[2024-02-24 17:03] VITALS: BP 109/65; PULSE 74; RESP 16; TEMP 36.2; O2SAT 94; BMI 39.5
--- NOTE | 2024-02-24 17:23 | EDS_ITS ---
HPI HPI - GI History of Present Illness Chief Complaint: Abd Pain Informant: patient Abdominal Pain/Flank Pain Onset: Days (2-3) Context: Gradual Onset Timing: Continuous Quality: Aching Location: - (Right side) Current Severity: Severe Maximum Severity: Severe Worsened by: Car ride Relieved by: Nothing Nausea/Vomiting/Emesis GI Symptom: Positive for Nausea and Vomiting Onset: Today Quality: Positive for Nonbilious; Negative for Blood streaks, Coffee ground or Hematemesis Diarrhea/Melena/Hematochezia GI Symptom: Positive for Diarrhea (More bowel movements than usual today and yesterday); Negative for Melena or Hematochezia Associated Symptoms Associated Symptoms: Negative for Dysuria, Frequency, Hematuria or Urgency Narrative Narrative: 43-year-old female arriving by EMS for right-sided abdominal pain that started gradually couple days ago, has not been colicky or intermittent, has been constant and progressively worsening to the point being severe today and associated with vomiting. No fevers that she knows of. Has history of kidney stones states this does not feel like that. Had her gallbladder out, also had a hysterectomy several other abdominal surgeries none of which were recent. States she is concerned it may be her appendix, has not had this pain before. Has a history of Crohn's states has been having more bowel movements than usual but no blood, as well as IBS according to her, as well as gastroparesis. [facility] Medical History Anxiety Kidney stones Smoker Abdominal pain Intractable nausea and vomiting History of pancreatitis Pancreatitis Bipolar disorder Lung nodule Migraine Chronic pain Ovarian cyst Obesity Incomplete right bundle branch block Hyperlipidemia History of uterine cancer (2006) Right tubo-ovarian mass Ureteral stone with hydronephrosis History of renal calculi Home Medications ?Medication ?Instructions ?Recorded ?Last Taken ?Type gabapentin 400 mg capsule 400 mg PO TID PRN NEUROPATHY 10/03/20 12/02/23 History aripiprazole 10 mg tablet 10 mg PO DAILY DEPRESSION 10/25/23 12/02/23 History lorazepam 0.5 mg tablet 0.5 mg PO DAILY PRN ANXIETY #7 01/26/24 Unknown Rx tabs mesalamine 1.2 gram tablet,delayed 2.4 g (2 x 1.2 gram) PO DAILY 30 02/09/24 Unknown Rx release days #60 tabs trazodone 50 mg tablet 50 mg PO QHS 02/23/24 Unknown History hyoscyamine sulfate 0.125 mg 0.125 mg PO Q6H PRN abdominal 02/24/24 Unknown Rx disintegrating tablet discomfort #10 tabs metoclopramide HCl 10 mg tablet 10 mg PO Q12H PRN PRN nausea and 02/24/24 Unknown Rx vomiting #8 tabs Allergy/AdvReac Type Severity Reaction Status Date / Time Iodinated Contrast Media (CT) Allergy Anaphylaxis Verified 02/24/24 17:03 ketorolac tromethamine (From Allergy Rash Verified 02/24/24 17:03 Toradol) metronidazole (From Flagyl) Allergy Hives Verified 02/24/24 17:03 Penicillins Allergy Hives Verified 02/24/24 17:03 dicyclomine (From Bentyl) AdvReac Mild Hives Verified 02/24/24 17:03 aspirin AdvReac Upset Verified 02/24/24 17:03 Stomach Family History Aunt Breast cancer Grandfather CAD (coronary artery disease) Father Heart disease, Onset Age: 73 Triple bypass Mother Heart disease, Onset Age: 62 Other Diabetes Surgical History History of cholecystectomy H/O ovarian cystectomy (09/2019) History of bilateral oophorectomy History of hysterectomy History of tubal ligation Social History household members: none Smoking Status: Current every day smoker tobacco type: cigarettes Tobacco: How many years used: 15 alcohol intake: current substance use type: does not use ROS ROS ED Constitutional Constitutional ED: Denies chills or fever(s) Eyes Eyes: Denies change in vision or diplopia ENT ENT ED: Denies rhinorrhea or sore throat Cardiovascular Cardiovascular: Denies chest pain or palpitations Respiratory/Chest Respiratory/Chest: Denies cough or dyspnea Gastrointestinal Gastrointestinal: Reports abdominal pain, diarrhea, nausea and vomiting Genitourinary Genitourinary ED: Denies dysuria or hematuria Musculoskeletal Musculoskeletal: Denies back pain or neck pain Integumentary Denies abscess or rash Neurologic Neurologic: Denies headache(s), paresthesias or weakness Psychiatric Psychiatric: Denies suicidal thoughts EXAM Physical Exam Const Vital Signs: 02/24/24 17:03 Temperature 97.2 F L Temperature Source Temporal Pulse Rate 74 Respiratory Rate 16 Blood Pressure 109/65 Blood Pressure Mean 79 Pulse Ox 94 Oxygen Delivery Method Room Air Positive well nourished, well developed and obese General Appearance ED: well developed and NAD Nutritional Appearance: obese HEENT Reports moist mucous membranes normocephalic and atraumatic Eyes PERRL and EOMs intact bilaterally Neck full ROM and supple Resp normal respiratory effort and clear to auscultation bilaterally Cardio regular rate, regular rhythm and no murmurs GI non-distended GI Narrative: Tender in the right lateral aspect of the mid and upper abdomen, very minimal anterior right upper and lower quadrant tenderness, no guarding or rebound, negative Rovsing, positive obturator positive psoas signs. Auscultation: normoactive bowel sounds Palpation: soft Back/Spine no CVA tenderness General Back: other FROM Extremity normal to inspection General Extremety ED: Negative for edema, pulses abnormal or tenderness General Extremity: Negative for edema or pulses abnormal Neuro oriented x3, CN's II-XII intact bilaterally and no sensory deficits noted Sensorium / Orientation: awake and alert Motor Exam: strength 5/5 throughout Skin no rashes or lesions noted and no wounds MDM MDM MDM Narrative Medical decision making narrative: Differential includes retrocecal/atypical appendicitis, bowel obstruction although less likely due to the diarrhea, but she could have a Crohn's exacerbation or intra-abdominal abscess or other complication of Crohn's. Given this CT indicated. Labs show a mild leukocytosis with no left shift, the rest of her labs are normal/unremarkable. I reviewed the CT images and report which I agree with, it is negative for any acute inflammatory abnormality, but does show a predominance of stool and it happens to be on the right side of the colon where she is having pain in her right upper quadrant. She states she is been having diarrhea. It is possible that she is having encopresis in this area. She wants more pain medication she was initially given morphine and Zofran, but I do not recommend any more narcotics due to this, as they could potentially make the problem worse which she understands. I am going to give her a dose of hyoscyamine since she gets hives apparently from dicyclomine, a prescription for more, and we discussed the possible treatments at home she states she has a bottle of magnesium citrate I think it would be reasonable to do that and drink plenty of water. Will prescribe her some Reglan to use as needed. She is comfortable with that plan and following up. Lab Data Attestation: I reviewed the patient's lab results. Labs: Laboratory Results - last 24 hr 02/24/24 17:35 WBC 11.5 H RBC 4.46 Hgb 13.3 Hct 41.0 MCV 91.9 MCH 29.8 MCHC 32.4 RDW Std Deviation 43.6 RDW Coeff of Shun 13.1 Plt Count 272 MPV 9.7 Immature Gran % (Auto) 2.100 H Neut % (Auto) 53.5 Lymph % (Auto) 34.3 Webb % (Auto) 6.8 Eos % (Auto) 2.4 Baso % (Auto) 0.9 Absolute Neuts (auto) 6.1 Absolute Lymphs (auto) 3.93 Nucleated RBC % 0 Sodium 136 Potassium 4.0 Chloride 102 Carbon Dioxide 29.0 Anion Gap 5 BUN 16 Creatinine 1.09 H Estim Creat Clear Calc 69.87 Est GFR (MDRD) Af Amer 70 Est GFR (MDRD) Non-Af 58 L BUN/Creatinine Ratio 14.7 Glucose 107 H Calcium 9.3 Total Bilirubin 0.70 AST 19 ALT 28 Alkaline Phosphatase 128 H Total Protein 8.0 Albumin 3.9 Globulin 4.1 Albumin/Globulin Ratio 1.0 Lipase 58 Radiography Diagnostic Testing: Clinical Impression(s) from Imaging Studies Abdomen/Pelvis CT 02/24/24 17:23 IMPRESSION: No acute findings in the abdomen or pelvis. Nonobstructing left nephrolithiasis. Colonic fecal burden consistent with clinical constipation. Electronically Signed: Gt Lovell MD at 18:50 EDT Reading Location ID and State: [facility] / [place] Tel , Service support , Discharge Plan Triage Chief Complaint: Abd Pain ED Provider: Tristen Adams Dx/Rx/DC Orders Clinical Impression: Right sided abdominal pain, Nausea, vomiting, and diarrhea Instructions: Abdominal Pain Prescriptions: New metoclopramide HCl 10 mg tablet 10 mg PO Q12H PRN PRN (Reason: nausea and vomiting) Qty: 8 0RF hyoscyamine sulfate 0.125 mg tablet,disintegrating 0.125 mg PO Q6H PRN (Reason: abdominal discomfort) Qty: 10 0RF No Action trazodone 50 mg tablet 50 mg PO QHS gabapentin 400 MG capsule 400 mg PO TID PRN (Reason: NEUROPATHY ) Patient Comments: PT STATES THEIR DOCTOR RECENTLY UPPED THE DOSE THAT CAN BE TAKEN aripiprazole 10 mg tablet 10 mg PO DAILY lorazepam 0.5 mg tablet 0.5 mg PO DAILY PRN (Reason: ANXIETY ) Qty: 7 0RF mesalamine 1.2 gram tablet,delayed release (DR/EC) 2.4 g PO DAILY 30 Days Qty: 60 1RF Primary Care Provider: Michell Baca Referrals: Michell Baca MD [Primary Care Provider] - 3-5 Days if not improving Activity Restrictions/Additional Instructions: Consider drinking half bottle magnesium citrate as long as your nausea is better and you are able to drink plenty of fluids with and afterwards. Print Language: Romanian Disposition Disposition: Home, Self Care
--- NOTE | 2024-02-24 17:23 | CT_ITS ---
INDICATION: Right-sided abdominal pain, history of Crohn''s EXAMINATION: CT ABDOMEN AND PELVIS WITHOUT CONTRAST - CT Abdomen And Pelvis W/O Contrast Injection TECHNIQUE: Helically acquired images were obtained of the abdomen and pelvis without oral or IV contrast. A radiation dose optimization technique was used for this scan. IV Contrast dosage and agent: None. Oral contrast: None. COMPARISON: 12/26/2023 FINDINGS: LOWER CHEST: Lung bases are clear. No cardiomegaly or pericardial effusion. LIVER: Stable scattered hepatic cysts. No concerning focal mass. GALLBLADDER AND BILIARY TREE: Cholecystectomy. No intra- or extrahepatic biliary ductal dilation. PANCREAS: No focal cystic or solid mass. SPLEEN: Normal size without focal cystic or solid mass. ADRENAL GLANDS: No nodules. KIDNEYS AND URETERS: Stable nonobstructing left renal calculi. No hydronephrosis. PERITONEUM: No ascites or free air. BOWEL: No evidence of acute appendicitis. No stomach or bowel distension. No focal inflammatory change. Diffusely increased colonic fecal burden. LYMPH NODES: No enlarged mesenteric or retroperitoneal lymph nodes. VESSELS: Aorta is non-dilated. URINARY BLADDER: Unremarkable. REPRODUCTIVE ORGANS: No pelvic masses. BONES: No acute or aggressive abnormality. CT/Abdomen/Pelvis without Cont IMPRESSION: No acute findings in the abdomen or pelvis. Nonobstructing left nephrolithiasis. Colonic fecal burden consistent with clinical constipation. Electronically Signed: Gt Lovell MD at 18:50 EDT ,
[2024-02-24] MEDS: Morphine 4 MG/ML Syringe IV (17:43)
[2024-02-24] MEDS: 0.9% Normal Saline (1000mL) 1,000 ML 999 ML IV (17:43)
[2024-02-24] MEDS: Ondansetron 4 MG/2 ML Vial IV (17:43)
[2024-02-24 17:46] LABS: Absolute Lymphocyte Count 3.93 X10^3/uL (0.83-4.51); Absolute Neutrophil Count 6.1 X10^3/uL (2.0-7.7); Basophil% 0.9 % (0-1); Eosinophil# 0.28 X10^3/uL; Eosinophils% 2.4 % (0-5); Hemoglobin 13.3 g/dL (12.0-15.0); Lymphocyte # 3.93 X10^3/ul (0.83-4.51); Lymphocyte % 34.3 % (19-41); Mean Corp Hgb Conc 32.4 g/dL (32-36); Mean Corpuscular Hgb 29.8 pg (27.0-32.0); Mean Corpuscular Volume 91.9 fL (81-99); Mean Platelet Vol. 9.7 fl (6.2-12.0); Monocyte# 0.78 X10^3/uL; Monocyte% 6.8 % (0-10); NRBC Flagged by Analyzer 0 % (0-5); Neutrophil # 6.12 X10^3/uL (2.7-7.7); Neutrophil % 53.5 % (47-70); Platelet Count 272 K/mm3 (150-450); RBC Distribution Width CV 13.1 % (11.6-14.6); RBC Distribution Width SD 43.6 fl (35.1-43.9); Red Blood Count 4.46 M/mm3 (4.2-5.4); White Blood Count 11.5 K/mm3 (4.4-11.0)
[2024-02-24 18:03] LABS: AST(SGOT) 19 U/L (15-37); Alanine Aminotransfer ALT/SGPT 28 U/L (13-56); Albumin, Serum 3.9 g/dL (3.2-5.0); Alkaline Phosphatase 128 U/L (45-117); Anion Gap 5 (5-15); BUN 16 mg/dL (7-18); BUN/Creat Ratio 14.7 RATIO (10-20); Calcium,Total 9.3 mg/dL (8.5-10.1); Chloride 102 mmol/L (98-107); Creatinine, Serum 1.09 mg/dL (0.55-1.02); EST Glomerular Filtration Rate 58 mL/min (>60); Est Glom Filt Rate - Afr Amer 70 mL/min (>60); Estimated Creatinine Clearance 69.87 ml/min; Globulin 4.1 g/dL (2.2-4.2); Glucose 107 mg/dL (74-106); Lipase 58 U/L (13-75); Sodium Level 136 mmol/L (136-145)
== END 2024-02-24 20:14 | disposition home or self-care (01) ==
PROVIDERS: Emergency Provider Emergency Medicine; PCP Internal Medicine; Visit Provider Emergency Medicine
DX: R10.9 Unspecified abdominal pain (principal); K50.90 Crohn's disease, unspecified, without complications; F17.210 Nicotine dependence, cigarettes, uncomplicated; K31.84 Gastroparesis; Z87.442 Personal history of urinary calculi; Z90.49 Acquired absence of other specified parts of digestive tract; Z98.51 Tubal ligation status; R11.2 Nausea with vomiting, unspecified; R19.7 Diarrhea, unspecified
CPT/HCPCS: 74176; 80053; 83690; 85025; 99283; J7030; J2405

== ENCOUNTER 2024-03-05 18:25 | Emergency (ER) | payer MEDICAID, SELFPAY ==
[2024-03-05 18:26] VITALS: BP 124/81; PULSE 91; PULSE 94; RESP 14; TEMP 36.5; O2SAT 98; BMI 38.0
--- NOTE | 2024-03-05 18:46 | CT_ITS ---
STUDY: CT ABDOMEN AND PELVIS WITHOUT CONTRAST REASON FOR EXAM: Female, 43 years old. Pain RADIATION DOSAGE (If Supplied By Facility): CTDIvol = ( 15.47 ) mGy, DLP = ( 823.46 ) mGycm TECHNIQUE: Transaxial images were obtained from the dome of the diaphragm to the symphysis pubis without oral contrast, and without intravenous contrast. Sagittal and coronal images were reconstructed. Individualized dose optimization techniques were used for this CT. COMPARISON: None. FINDINGS: The visualized lung bases are unremarkable. The visualized portions of the heart are within normal limits. Up to 4 cm cysts in the liver. Status post cholecystectomy. No significant dilatation of the extrahepatic biliary system. Normal spleen. Normal pancreas. Normal bilateral adrenal glands. Normal right kidney. Up to 3 mm calculi in the left kidney. Normal visualized stomach. Normal small intestine. Normal colon. The appendix is visualized and appears normal. Normal abdominal aorta. Normal inferior vena cava. Normal retroperitoneum. Normal urinary bladder. Normal abdominal wall. Normal osseous structures. CT/Abdomen/Pelvis without Cont IMPRESSION: Hepatic cysts. Nonobstructive left renal calculi. Electronically Signed: Brian Lynn DO at 20:26 EDT Reading Location ID and State: [facility] / [place] Tel [phone], Service support ,
--- NOTE | 2024-03-05 18:52 | ED.VIS.GI ---
HPI HPI - GI History of Present Illness Chief Complaint: Abd Pain Informant: patient Abdominal Pain/Flank Pain Onset: Days Context: Gradual Onset Timing: Continuous Quality: Dull Location: Epigastric and LUQ Current Severity: Mild Maximum Severity: Mild Worsened by: Nothing Relieved by: Nothing Nausea/Vomiting/Emesis GI Symptom: Positive for Nausea and Vomiting Severity: Mild Diarrhea/Melena/Hematochezia GI Symptom: Positive for Diarrhea; Negative for Melena or Hematochezia Onset: Days Stool Quality: Positive for Loose Severity: Mild Associated Symptoms Associated Symptoms: Negative for Dysuria, Frequency, Hematuria or Urgency Narrative Narrative: 40-year-old female history of prior kidney stone and pancreatitis. Prior cholecystectomy and hysterectomy. States she has had epigastric and upper quadrant abdominal pain since around Thursday. Associated nausea vomiting diarrhea. Fever of 101. Denies any dysuria. No hematemesis. No melena. States she was admitted around November for pancreatitis. Prior similar symptoms: Yes Recent Illness/Hospitalization: No PFSH PFS Medical History Anxiety Kidney stones Smoker Abdominal pain Intractable nausea and vomiting History of pancreatitis Pancreatitis Bipolar disorder Lung nodule Migraine Chronic pain Ovarian cyst Obesity Incomplete right bundle branch block Hyperlipidemia History of uterine cancer (2006) Right tubo-ovarian mass Ureteral stone with hydronephrosis History of renal calculi Home Medications ?Medication ?Instructions ?Recorded ?Last Taken ?Type gabapentin 400 mg capsule 400 mg PO TID PRN NEUROPATHY 10/03/20 12/02/23 History aripiprazole 10 mg tablet 10 mg PO DAILY DEPRESSION 10/25/23 12/02/23 History lorazepam 0.5 mg tablet 0.5 mg PO DAILY PRN ANXIETY #7 01/26/24 Unknown Rx tabs mesalamine 1.2 gram tablet,delayed 2.4 g (2 x 1.2 gram) PO DAILY 30 02/09/24 Unknown Rx release days #60 tabs trazodone 50 mg tablet 50 mg PO QHS 02/23/24 Unknown History hyoscyamine sulfate 0.125 mg 0.125 mg PO Q6H PRN abdominal 02/24/24 Unknown Rx disintegrating tablet discomfort #10 tabs metoclopramide HCl 10 mg tablet 10 mg PO Q12H PRN PRN nausea and 02/24/24 Unknown Rx vomiting #8 tabs Allergy/AdvReac Type Severity Reaction Status Date / Time Iodinated Contrast Media (CT) Allergy Anaphylaxis Verified 03/05/24 18:27 ketorolac tromethamine (From Allergy Rash Verified 03/05/24 18:27 Toradol) metronidazole (From Flagyl) Allergy Hives Verified 03/05/24 18:27 Penicillins Allergy Hives Verified 03/05/24 18:27 dicyclomine (From Bentyl) AdvReac Mild Hives Verified 03/05/24 18:27 aspirin AdvReac Upset Verified 03/05/24 18:27 Stomach Family History Aunt Breast cancer Grandfather CAD (coronary artery disease) Father Heart disease, Onset Age: 73 Triple bypass Mother Heart disease, Onset Age: 62 Other Diabetes Surgical History History of cholecystectomy H/O ovarian cystectomy (09/2019) History of bilateral oophorectomy History of hysterectomy History of tubal ligation Social History household members: none Smoking Status: Current every day smoker tobacco type: cigarettes Tobacco: How many years used: 15 alcohol intake: current substance use type: does not use ROS ROS ED ROS Narrative Nausea, vomiting diarrhea. Fever of 101 at home. Not febrile here. Abdominal pain. Review of Systems ROS Unobtainable: Denies due to encephalopathy Constitutional Constitutional ED: Reports fever(s) ENT ENT ED: Denies ear pain Cardiovascular Cardiovascular: Denies chest pain Respiratory/Chest Respiratory/Chest: Denies cough or dyspnea Gastrointestinal Gastrointestinal: Reports abdominal pain, diarrhea, nausea and vomiting; Denies constipation or melena Genitourinary Genitourinary ED: Denies dysuria or hematuria Musculoskeletal Musculoskeletal: Denies arthralgias Integumentary Denies abscess Neurologic Neurologic: Denies headache(s) Psychiatric Psychiatric: Denies anxiety Endocrine Endocrinology: Denies polydipsia Hematologic/Lymphatic Hematologic/Lymphatic: Denies easy bleeding Allergic/Immunologic Allergic/Immunologic ED: Denies mouth swelling, tongue swelling or urticaria EXAM Physical Exam Narrative Exam Narrative: Well-appearing 44-year-old female. Vital signs stable afebrile. H EENT exam unremarkable. Neck nontender no JVD. Lungs clear to auscultation bilateral. Heart regular rhythm no murmur. Rate about 90. Chest wall ribs nontender. Abdomen soft nondistended normal bowel sounds no peritoneal signs. No obstruction. No hernia or mass. Minimally tender epigastric left upper quadrant. Right upper quadrant right lower quadrant unremarkable. No hernia or mass. Back nontender. Moving all 4 extremities. Nontender no edema. Neurologically she is awake and alert. No focal motor deficits. Const Vital Signs: 03/05/24 18:26 03/05/24 18:26 03/05/24 20:25 Temperature 97.7 F L Temperature Source Temporal Pulse Rate 94 91 69 Respiratory Rate 14 14 16 Blood Pressure 124/81 H 124/81 H 114/58 L Blood Pressure Mean 95 95 76 Pulse Ox 98 98 98 Oxygen Delivery Method Room Air Room Air Room Air Positive well nourished and well developed; Negative for cachectic, contractures or unkempt General Appearance ED: well developed; Negative for unkempt, cachectic, contractures or pallor Nutritional Appearance: Negative for cachectic HEENT Reports moist mucous membranes normocephalic and atraumatic; Negative for trauma or tenderness Eyes EOMs intact bilaterally General Eye ED: Negative for pale conjunctiva Neck no lymphadenopathy, supple and no JVD General: Negative for tenderness Carotids: Negative for other Lymph Lymphatic: Negative for other Resp normal respiratory effort and clear to auscultation bilaterally Effort and Inspection: Negative for respiratory distress Auscultation: Negative for rales, rhonchi or wheezes Cardio regular rate, regular rhythm, S1 normal heart sound, S2 normal heart sound and no murmurs Rate: Negative for bradycardia GI non-distended and no masses; Negative for non-tender GI Narrative: Mild epigastric and left upper quadrant tenderness. Inspection: Negative for abdominal distention Auscultation: normoactive bowel sounds Palpation: soft; Negative for tender, guarding or rebound tenderness present Back/Spine no CVA tenderness General Back: Negative for CVA tenderness Cervical Spine: Negative for cervical spine tenderness Thoracic Spine / Upper Back: Negative for thoracic spinal tenderness Lumbar Spine / Lower Back: Negative for lumbar spinal tenderness Extremity General Extremety ED: Negative for edema or tenderness General Extremity: Negative for edema Neuro CN's II-XII intact bilaterally and moves all extremities Sensorium / Orientation: alert, oriented to person, oriented to place and oriented to time; Negative for orientation impaired, confused, lethargic or stuporous Motor Exam: strength 5/5 throughout Psych mental status grossly normal and thought process normal Appearance: Negative for unkempt Attitude: No agitated Mood & Affect: Negative for depressed, anxious or tearful Skin no wounds General Skin Exam: Negative for jaundice or pallor Lesions: no lesions Rashes: no rashes Trauma: Negative for abrasion Nails: Negative for discolored MDM MDM MDM Narrative Medical decision making narrative: 43-year-old female complaining epigastric left upper quad abdominal pain. History of pancreatitis kidney stones. CAT scan labs being obtained. Initially treated with 6 mg of morphine and Zofran. Repeat exam patient doing well at 8:50 PM. She and I went over all of her test with her basically normal. Including her CAT scan of her abdomen. Patient does have a care plan in this emergency department. I explained to her we could not find a specific cause for her pain. Her repeat abdominal exam at this time is unremarkable. She will be discharged home with abdominal pain uncertain etiology. Outpatient follow-up as needed. History & Record Review Discussion w/independent historian: Patient Additional record(s) reviewed:: Prior inpatient record, Prior outpatient record, Prior ED visit and Prior labs Lab Data Attestation: I reviewed the patient's lab results. Lab results narrative: CBC normal. White count of 9. H&H 12 and 38. Platelets 261. Electrolytes show gap 6. BUN of 15 creatinine 1.2. Glucose 118. Liver enzymes unremarkable. Lipase normal at 55. Urinalysis shows no red cells. No white cells. 1+ bacteria. No nitrates. Normal. CAT scan of the abdomen shows hepatic cysts and the stone in the kidney no acute ureteral calculi. So basically it is unremarkable. Labs: Laboratory Results - last 24 hr 03/05/24 19:03 WBC 9.0 RBC 4.16 L Hgb 12.7 Hct 38.1 MCV 91.6 MCH 30.5 MCHC 33.3 RDW Std Deviation 43.8 RDW Coeff of Shun 13.2 Plt Count 261 MPV 10.5 Immature Gran % (Auto) 1.000 H Neut % (Auto) 46.7 L Lymph % (Auto) 43.0 H [place] % (Auto) 5.9 Eos % (Auto) 2.6 Baso % (Auto) 0.8 Absolute Neuts (auto) 4.2 Absolute Lymphs (auto) 3.87 Nucleated RBC % 0 Sodium 138 Potassium 3.5 Chloride 107 Carbon Dioxide 25.0 Anion Gap 6 BUN 15 Creatinine 1.20 H Estim Creat Clear Calc 61.63 Est GFR (MDRD) Af Amer 63 Est GFR (MDRD) Non-Af 52 L BUN/Creatinine Ratio 12.5 Glucose 118 H Calcium 9.0 Total Bilirubin 0.70 AST 13 L ALT 23 Alkaline Phosphatase 115 Total Protein 7.5 Albumin 3.9 Globulin 3.6 Albumin/Globulin Ratio 1.1 Lipase 55 Urine Color Yellow Urine Clarity Sl. Cloudy Urine pH 5.0 Ur Specific [place] 1.025 Urine Protein 30 H Urine Glucose (UA) Normal Urine Ketones Negative Urine Occult Blood 10 H Urine Nitrite Negative Urine Bilirubin Negative Urine Urobilinogen Normal Ur Leukocyte Esterase 25 H Urine RBC 0-5 SEEN Urine WBC 0-5 SEEN Ur Squamous Epith Cells 10-25 SEEN Urine Bacteria 1+ Urine Mucus 0 SEEN Radiography Diagnostic Testing: Clinical Impression(s) from Imaging Studies Abdomen/Pelvis CT 03/05/24 18:46 IMPRESSION: Hepatic cysts. Nonobstructive left renal calculi. Electronically Signed: Brian Lynn DO at 20:26 EDT Reading Location ID and State: [facility] / [place] Tel [phone], Service support , Discharge Plan Triage Chief Complaint: Abd Pain ED Provider: Grzegorz Roper Dx/Rx/DC Orders Clinical Impression: Abdominal pain, History of renal calculi, History of pancreatitis Instructions: Abdominal Pain Prescriptions: No Action trazodone 50 mg tablet 50 mg PO QHS gabapentin 400 MG capsule 400 mg PO TID PRN (Reason: NEUROPATHY ) Patient Comments: PT STATES THEIR DOCTOR RECENTLY UPPED THE DOSE THAT CAN BE TAKEN aripiprazole 10 mg tablet 10 mg PO DAILY metoclopramide HCl 10 mg tablet 10 mg PO Q12H PRN PRN (Reason: nausea and vomiting) Qty: 8 0RF hyoscyamine sulfate 0.125 mg tablet,disintegrating 0.125 mg PO Q6H PRN (Reason: abdominal discomfort) Qty: 10 0RF lorazepam 0.5 mg tablet 0.5 mg PO DAILY PRN (Reason: ANXIETY ) Qty: 7 0RF mesalamine 1.2 gram tablet,delayed release (DR/EC) 2.4 g PO DAILY 30 Days Qty: 60 1RF Primary Care Provider: Michell Baca Referrals: Michell Baca MD [Primary Care Provider] - 3-5 Days if not improving Activity Restrictions/Additional Instructions: Plenty of fluids and rest. Follow-up with your doctor if not improving. Your labs and CAT scan tonight were unremarkable. Print Language: Belarusian Disposition Disposition: Home, Self Care
[2024-03-05] MEDS: Ondansetron 4 MG/2 ML Vial IV (18:56)
[2024-03-05] MEDS: Morphine 4 MG/ML Syringe 6 MG IV (18:56)
[2024-03-05] MEDS: 0.9% Normal Saline (1000mL) 1,000 ML 999 ML IV (18:56)
[2024-03-05 19:12] LABS: Mucous, Urine 0 SEEN /hpf (<or=2+)
[2024-03-05 19:22] LABS: Absolute Lymphocyte Count 3.87 X10^3/uL (0.83-4.51); Absolute Neutrophil Count 4.2 X10^3/uL (2.0-7.7); Basophil# 0.07 X10^3/uL; Basophil% 0.8 % (0-1); Eosinophil# 0.23 X10^3/uL; Eosinophils% 2.6 % (0-5); Hematocrit 38.1 % (37-47); Hemoglobin 12.7 g/dL (12.0-15.0); Lymphocyte # 3.87 X10^3/ul (0.83-4.51); Mean Corp Hgb Conc 33.3 g/dL (32-36); Mean Corpuscular Hgb 30.5 pg (27.0-32.0); Mean Corpuscular Volume 91.6 fL (81-99); Mean Platelet Vol. 10.5 fl (6.2-12.0); Monocyte# 0.53 X10^3/uL; Monocyte% 5.9 % (0-10); NRBC Flagged by Analyzer 0 % (0-5); Neutrophil # 4.21 X10^3/uL (2.7-7.7); Neutrophil % 46.7 % (47-70); POSITIVE COUNT YES; Platelet Count 261 K/mm3 (150-450); RBC Distribution Width CV 13.2 % (11.6-14.6); RBC Distribution Width SD 43.8 fl (35.1-43.9); Red Blood Count 4.16 M/mm3 (4.2-5.4)
[2024-03-05 19:25] LABS: Color, Urine Yellow (Yellow); Glucose, Dipstick Normal (Normal); Ketone-Dipstick Negative (Negative); Leukocyte Esterase-Dipstick 25 /ul (Negative); Nitrite-Dipstick Negative (Negative); Occult Blood-Urine 10 /ul (Negative); Protein-Dipstick 30 mg/dl (Negative); Specific Gravity, Urine 1.025 (1.002-1.030); Urine Bilirubin Dipstick Negative (Negative); Urine Clarity Sl. Cloudy (Clear); Urine Urobilinogen Normal (Normal)
[2024-03-05 19:32] LABS: ALB/GLOB Ratio 1.1 RATIO (0.9-2.4); AST(SGOT) 13 U/L (15-37); Alanine Aminotransfer ALT/SGPT 23 U/L (13-56); Albumin, Serum 3.9 g/dL (3.2-5.0); Alkaline Phosphatase 115 U/L (45-117); Anion Gap 6 (5-15); BUN 15 mg/dL (7-18); BUN/Creat Ratio 12.5 RATIO (10-20); Chloride 107 mmol/L (98-107); EST Glomerular Filtration Rate 52 mL/min (>60); Est Glom Filt Rate - Afr Amer 63 mL/min (>60); Estimated Creatinine Clearance 61.63 ml/min; Globulin 3.6 g/dL (2.2-4.2); Glucose 118 mg/dL (74-106); Lipase 55 U/L (13-75); Potassium 3.5 mmol/L (3.5-5.1); Protein, Total 7.5 g/dL (6.4-8.2); Sodium Level 138 mmol/L (136-145)
[2024-03-05 19:49] LABS: Bacteria 1+ /hpf (None Seen); Red Blood Cells-Urine 0-5 SEEN /hpf (0-5); Squamous Epithelial Cells - UA 10-25 SEEN /hpf (5-10); White Blood Cells 0-5 SEEN /hpf (0-5)
[2024-03-05 20:25] VITALS: BP 114/58; PULSE 69; RESP 16; O2SAT 98
[2024-03-05 20:58] VITALS: BP 112/55; PULSE 68; RESP 16; TEMP 36.6; O2SAT 99
== END 2024-03-05 21:09 | disposition home or self-care (01) ==
PROVIDERS: Emergency Provider Emergency Medicine; PCP Internal Medicine; Visit Provider Emergency Medicine
DX: R10.9 Unspecified abdominal pain (principal); F31.9 Bipolar disorder, unspecified; F17.210 Nicotine dependence, cigarettes, uncomplicated; R19.7 Diarrhea, unspecified; R11.2 Nausea with vomiting, unspecified; R50.9 Fever, unspecified; Z87.442 Personal history of urinary calculi; Z90.49 Acquired absence of other specified parts of digestive tract; Z98.51 Tubal ligation status; Z90.710 Acquired absence of both cervix and uterus; Z85.42 Personal history of malignant neoplasm of other parts of uterus
CPT/HCPCS: 74176; 80053; 81001; 83690; 85025; 96361; 96374; 96375; 99284; J7030; A4216; J2405

== ENCOUNTER 2024-04-01 15:13 | Emergency (ER) | payer MEDICAID, SELFPAY ==
[2024-04-01 15:13] VITALS: BP 111/69; PULSE 65; RESP 18; TEMP 36.1; O2SAT 99; BMI 38.1
--- NOTE | 2024-04-01 15:22 | EKG12_ITS ---
Test Reason : CP Blood Pressure : / mmHG Vent. Rate : 059 BPM Atrial Rate : 059 BPM P-R Int : 158 ms QRS Dur : 094 ms QT Int : 452 ms P-R-T Axes : 044 -26 017 degrees QTc Int : 447 ms Sinus bradycardia Incomplete right bundle branch block T wave abnormality, consider anterior ischemia Abnormal ECG Confirmed by GAB ALVARADO, GALEN ([id number]), sports editor TERRI SHEA ([id number]) on 04/04/2024 11:15:48 AM Referred By: Confirmed By:GALEN DE GUZMAN MD
--- NOTE | 2024-04-01 15:28 | RAD_ITS ---
STUDY: X-RAY CHEST REASON FOR EXAM: Female, 43 years old. Chest pain. TECHNIQUE: Single frontal view of the chest. COMPARISON: July 22, 2023 FINDINGS: The lungs are clear and expanded. There is no demonstrated pleural abnormality. Normal size heart. Normal mediastinum and [place]. Normal visualized pulmonary arteries. Normal visualized aortic arch and descending thoracic aorta. No abnormality of the visualized soft tissue structures of the upper abdomen. RAD/Chest 1 View (Portable) IMPRESSION: No interval change and no acute or active cardiopulmonary disease. Electronically Signed: Willie Elkins MD at 15:50 EDT ,
[2024-04-01 15:36] LABS: Absolute Lymphocyte Count 1.82 X10^3/uL (0.83-4.51); Absolute Neutrophil Count 5.1 X10^3/uL (2.0-7.7); Basophil# 0.05 X10^3/uL; Basophil% 0.7 % (0-1); Eosinophil# 0.07 X10^3/uL; Eosinophils% 0.9 % (0-5); Hematocrit 41.1 % (37-47); Hemoglobin 13.6 g/dL (12.0-15.0); Lymphocyte # 1.82 X10^3/ul (0.83-4.51); Lymphocyte % 24.2 % (19-41); Mean Corp Hgb Conc 33.1 g/dL (32-36); Mean Corpuscular Hgb 29.6 pg (27.0-32.0); Mean Corpuscular Volume 89.5 fL (81-99); Mean Platelet Vol. 10.6 fl (6.2-12.0); Monocyte# 0.39 X10^3/uL; Monocyte% 5.2 % (0-10); NRBC Flagged by Analyzer 0 % (0-5); Neutrophil # 5.14 X10^3/uL (2.7-7.7); Neutrophil % 68.3 % (47-70); Platelet Count 217 K/mm3 (150-450); RBC Distribution Width CV 12.5 % (11.6-14.6); RBC Distribution Width SD 41.2 fl (35.1-43.9); Red Blood Count 4.59 M/mm3 (4.2-5.4); White Blood Count 7.5 K/mm3 (4.4-11.0)
--- NOTE | 2024-04-01 15:49 | EX.ED.DYSGE1 ---
HPI <CHAZ Fonseca - Last Filed: 04/01/24 16:29> History of Present Illness Chief Complaint: Chest Pain Narrative Narrative: 43 year old female presents with 1 week of URI symptoms. She has had congestion, dry cough, wheezing and shortness of breath. She smokes 1/2 ppd but denies asthma. She has an inhaler but hasn't used it. She went to urgent care yesterday and was told she had a URI and was prescribed doxycycline and prednisone and took the first dose at noon today. offered a CXR but she didn't have time to get it completed. She had a fever of 101F yesterday and states she started to feel chest tightness and wheezing last night so presents today for evaluation. PFS <CHAZ Fonseca - Last Filed: 04/01/24 16:29> [facility] Medical History Anxiety Kidney stones Smoker Abdominal pain Intractable nausea and vomiting History of pancreatitis Pancreatitis Bipolar disorder Lung nodule Migraine Chronic pain Ovarian cyst Obesity Incomplete right bundle branch block Hyperlipidemia History of uterine cancer (2006) Right tubo-ovarian mass Ureteral stone with hydronephrosis History of renal calculi Home Medications ?Medication ?Instructions ?Recorded ?Last Taken ?Type gabapentin 400 mg capsule 400 mg PO TID PRN NEUROPATHY 10/03/20 12/02/23 History aripiprazole 10 mg tablet 10 mg PO DAILY DEPRESSION 10/25/23 12/02/23 History lorazepam 0.5 mg tablet 0.5 mg PO DAILY PRN ANXIETY #7 01/26/24 Unknown Rx tabs mesalamine 1.2 gram tablet,delayed 2.4 g (2 x 1.2 gram) PO DAILY 30 02/09/24 Unknown Rx release days #60 tabs trazodone 50 mg tablet 50 mg PO QHS 02/23/24 Unknown History hyoscyamine sulfate 0.125 mg 0.125 mg PO Q6H PRN abdominal 02/24/24 Unknown Rx disintegrating tablet discomfort #10 tabs metoclopramide HCl 10 mg tablet 10 mg PO Q12H PRN PRN nausea and 02/24/24 Unknown Rx vomiting #8 tabs doxycycline hyclate 100 mg tablet 100 mg PO BID 04/01/24 04/01/24 History prednisone 10 mg tablet 40 mg PO DAILY 04/01/24 04/01/24 History Allergy/AdvReac Type Severity Reaction Status Date / Time Iodinated Contrast Media (CT) Allergy Anaphylaxis Verified 04/01/24 15:13 ketorolac tromethamine (From Allergy Rash Verified 04/01/24 15:13 Toradol) metronidazole (From Flagyl) Allergy Hives Verified 04/01/24 15:13 Penicillins Allergy Hives Verified 04/01/24 15:13 dicyclomine (From Bentyl) AdvReac Mild Hives Verified 04/01/24 15:13 aspirin AdvReac Upset Verified 04/01/24 15:13 Stomach Family History Aunt Breast cancer Grandfather CAD (coronary artery disease) Father Heart disease, Onset Age: 73 Triple bypass Mother Heart disease, Onset Age: 62 Other Diabetes Surgical History History of cholecystectomy H/O ovarian cystectomy (09/2019) History of bilateral oophorectomy History of hysterectomy History of tubal ligation Social History household members: none Smoking Status: Current every day smoker tobacco type: cigarettes Tobacco: How many years used: 15 alcohol intake: current substance use type: does not use ROS <CHAZ Fonseca - Last Filed: 04/01/24 16:29> ROS ED Constitutional Constitutional ED: Reports fever(s); Denies chills ENT ENT ED: Reports rhinorrhea Cardiovascular Cardiovascular: Denies chest pain Respiratory/Chest Respiratory/Chest: Reports cough and dyspnea Gastrointestinal Gastrointestinal: Denies abdominal pain or vomiting EXAM <CHAZ Fonseca - Last Filed: 04/01/24 16:29> Physical Exam Const Vital Signs: 04/01/24 15:13 04/01/24 15:57 04/01/24 15:57 Temperature 97 F L Temperature Source Temporal Pulse Rate 65 Respiratory Rate 18 Respiratory Pattern Normal Blood Pressure 111/69 Blood Pressure Mean 83 Pulse Ox 99 94 Oxygen Delivery Method Room Air Room Air Positive well nourished and well developed General Appearance ED: well developed Chest Wall inspection of chest normal Resp normal respiratory effort and clear to auscultation bilaterally Effort and Inspection: Negative for retractions Auscultation: Negative for wheezes Cardio regular rate, regular rhythm and no murmurs Extremity normal to inspection <Dr. Mac Whitmore DO - Last Filed: 04/01/24 16:37> Physical Exam Const Vital Signs: 04/01/24 15:13 04/01/24 15:57 04/01/24 15:57 Temperature 97 F L Temperature Source Temporal Pulse Rate 65 Respiratory Rate 18 Respiratory Pattern Normal Blood Pressure 111/69 Blood Pressure Mean 83 Pulse Ox 99 94 Oxygen Delivery Method Room Air Room Air MDM <CHAZ Fonseca - Last Filed: 04/01/24 16:29> [facility] Narrative Medical decision making narrative: 43-year-old female has had 1 week of URI symptoms and 2 days of increased dry cough, chest tightness and wheezing. She started doxycycline and prednisone today from urgent care. She appears well and nontoxic. Vital signs stable. She is speaking full sentences in no distress and 99% on room air. Lungs are clear. EKG is sinus rhythm with no acute ischemic changes and troponin is less than 3. CBC and BMP unremarkable. CXR negative. I discussed symptomatic treatment for viral URI. She has an albuterol inhaler but has not tried it at home so I recommended this. She has not wheezing here and did not want to try aerosols. She can continue the prednisone and doxycycline and I discussed return precautions. She was discharged in stable condition. Lab Data Attestation: I reviewed the patient's lab results. Labs: Laboratory Results - last 24 hr 04/01/24 15:30 WBC 7.5 RBC 4.59 Hgb 13.6 Hct 41.1 MCV 89.5 MCH 29.6 MCHC 33.1 RDW Std Deviation 41.2 RDW Coeff of Shun 12.5 Plt Count 217 MPV 10.6 Immature Gran % (Auto) 0.700 Neut % (Auto) 68.3 Lymph % (Auto) 24.2 [place] % (Auto) 5.2 Eos % (Auto) 0.9 Baso % (Auto) 0.7 Absolute Neuts (auto) 5.1 Absolute Lymphs (auto) 1.82 Nucleated RBC % 0 Sodium 138 Potassium 3.9 Chloride 105 Carbon Dioxide 26.0 Anion Gap 7 BUN 16 Creatinine 1.11 H Estim Creat Clear Calc 66.69 Est GFR (MDRD) Af Amer 69 Est GFR (MDRD) Non-Af 57 L BUN/Creatinine Ratio 14.4 Glucose 109 H Calcium 9.6 Troponin I High Sens < 3 L Radiography Diagnostic Testing: Clinical Impression(s) from Imaging Studies Chest X-Ray 04/01/24 15:28 IMPRESSION: No interval change and no acute or active cardiopulmonary disease. Electronically Signed: Willie Elkins MD at 15:50 EDT Reading Location ID and State: [address] [place] [address] , Service support , ED attending interpretation of 2-view chest x-ray shows normal heart size, no acute infiltrate. EKG Initial EKG: Attestation: I personally reviewed and interpreted this EKG as follows: Interpretation: Sinus Rhythm, No Acute Injury Pattern and Inverted T-Waves Comments: Sinus bradycardia at 59 bpm Incomplete RBBB, T wave inversions V1 through V3. Prior EKG tracings: available for review Prior: Unchanged <Dr. Mac Whitmore, DO - Last Filed: 04/01/24 16:37> [facility] Narrative Medical decision making narrative: 43-year-old female has had 1 week of URI symptoms and 2 days of increased dry cough, chest tightness and wheezing. She started doxycycline and prednisone today from urgent care. She appears well and nontoxic. Vital signs stable. She is speaking full sentences in no distress and 99% on room air. Lungs are clear. EKG is sinus rhythm with no acute ischemic changes and troponin is less than 3. CBC and BMP unremarkable. CXR negative. I discussed symptomatic treatment for viral URI. She has an albuterol inhaler but has not tried it at home so I recommended this. She has not wheezing here and did not want to try aerosols. She can continue the prednisone and doxycycline and I discussed return precautions. She was discharged in stable condition. I have personally performed a face to face assessment of the patient and have reviewed the [facility] Note. I performed a substantive portion of the visit including all aspects of the following. My guzman findings include: History is 43-year-old female long-term smoker presenting to the emergency room with cough Chest tightness. Patient was seen at urgent care yesterday was prescribed doxycycline and prednisone. She picked him up today and took it at. She called off work today and needs a work note. The patient notes that she has an inhaler but has not used it. Exam is afebrile vital signs stable lung sounds are clear and equal. There is no wheezing. She clinically appears well. Medical Decison Making my independent interpretation of the chest x-ray is no acute process. Laboratory workup was negative including troponin. Her EKG shows some inverted T waves V2 through V3 which I do not believe is new. I would recommend that the patient continue her doxycycline and prednisone. She needs to quit smoking. Inhaler use is encouraged. History & Record Review Discussion w/independent historian: Patient Lab Data Labs: Laboratory Results - last 24 hr 04/01/24 15:30 WBC 7.5 RBC 4.59 Hgb 13.6 Hct 41.1 MCV 89.5 MCH 29.6 MCHC 33.1 RDW Std Deviation 41.2 RDW Coeff of Shun 12.5 Plt Count 217 MPV 10.6 Immature Gran % (Auto) 0.700 Neut % (Auto) 68.3 Lymph % (Auto) 24.2 [place] % (Auto) 5.2 Eos % (Auto) 0.9 Baso % (Auto) 0.7 Absolute Neuts (auto) 5.1 Absolute Lymphs (auto) 1.82 Nucleated RBC % 0 Sodium 138 Potassium 3.9 Chloride 105 Carbon Dioxide 26.0 Anion Gap 7 BUN 16 Creatinine 1.11 H Estim Creat Clear Calc 66.69 Est GFR (MDRD) Af Amer 69 Est GFR (MDRD) Non-Af 57 L BUN/Creatinine Ratio 14.4 Glucose 109 H Calcium 9.6 Troponin I High Sens < 3 L Radiography Diagnostic Testing: Clinical Impression(s) from Imaging Studies Chest X-Ray 04/01/24 15:28 IMPRESSION: No interval change and no acute or active cardiopulmonary disease. Electronically Signed: Willie Elkins MD at 15:50 EDT Reading Location ID and State: [facility] / [place] , Service support , Discharge Plan Triage Chief Complaint: Chest Pain ED Midlevel Provider: Simran Roger ED Provider: Mac Whitmore Dx/Rx/DC Orders Clinical Impression: URI (upper respiratory infection), Tobacco use Instructions: Adult Self-Care for Colds Prescriptions: No Action trazodone 50 mg tablet 50 mg PO QHS gabapentin 400 MG capsule 400 mg PO TID PRN (Reason: NEUROPATHY ) Patient Comments: PT STATES THEIR DOCTOR RECENTLY UPPED THE DOSE THAT CAN BE TAKEN aripiprazole 10 mg tablet 10 mg PO DAILY prednisone 10 mg tablet 40 mg PO DAILY doxycycline hyclate 100 mg tablet 100 mg PO BID metoclopramide HCl 10 mg tablet 10 mg PO Q12H PRN PRN (Reason: nausea and vomiting) Qty: 8 0RF hyoscyamine sulfate 0.125 mg tablet,disintegrating 0.125 mg PO Q6H PRN (Reason: abdominal discomfort) Qty: 10 0RF lorazepam 0.5 mg tablet 0.5 mg PO DAILY PRN (Reason: ANXIETY ) Qty: 7 0RF mesalamine 1.2 gram tablet,delayed release (DR/EC) 2.4 g PO DAILY 30 Days Qty: 60 1RF Primary Care Provider: Michell Baca Referrals: Michell Baca MD [Primary Care Provider] - Activity Restrictions/Additional Instructions: I recommend you use your inhaler as needed and continue the steroids from urgent care. Your chest x-ray did not show pneumonia so this is more likely of viral illness. Finish the antibiotic and prednisone. Print Language: Upper Sorbian Disposition Disposition: Home, Self Care
[2024-04-01 15:57] VITALS: O2SAT 94
[2024-04-01 16:11] LABS: Anion Gap 7 (5-15); BUN 16 mg/dL (7-18); BUN/Creat Ratio 14.4 RATIO (10-20); Calcium,Total 9.6 mg/dL (8.5-10.1); Chloride 105 mmol/L (98-107); Creatinine, Serum 1.11 mg/dL (0.55-1.02); EST Glomerular Filtration Rate 57 mL/min (>60); Est Glom Filt Rate - Afr Amer 69 mL/min (>60); Estimated Creatinine Clearance 66.69 ml/min; Glucose 109 mg/dL (74-106); Potassium 3.9 mmol/L (3.5-5.1); Sodium Level 138 mmol/L (136-145); Troponin-I HS (w/2H Reflex) < 3 pg/mL (3.0-54.0)
[2024-04-01 16:49] VITALS: BP 111/77; PULSE 60; RESP 16; TEMP 35.7; O2SAT 97
[2024-04-01 17:32] LABS: Reflex Troponin-HS? (from REC) Y
== END 2024-04-01 16:50 | disposition home or self-care (01) ==
PROVIDERS: Emergency Provider Emergency Medicine; PCP Internal Medicine; Visit Provider Emergency Medicine
DX: J06.9 Acute upper respiratory infection, unspecified (principal); E78.5 Hyperlipidemia, unspecified; F17.210 Nicotine dependence, cigarettes, uncomplicated; Z90.49 Acquired absence of other specified parts of digestive tract; Z98.51 Tubal ligation status; Z90.710 Acquired absence of both cervix and uterus
CPT/HCPCS: 71045; 80048; 84484; 85025; 93005; 99284; A4216

== ENCOUNTER 2024-05-27 13:06 | Day surgery (SDC) | payer MEDICAID, SELFPAY ==
[2024-05-27] VITALS (7 sets, daily range): BP systolic 96–131; BP diastolic 40–71; PULSE 68–87; RESP 16–18; TEMP 36.6–37.1; O2SAT 96–100; BMI 36.8
--- NOTE | 2024-05-27 13:37 | HP.PCM_ITS ---
History and Physical Date of Admission: 05/27/24 [facility] Gastroenterology [address] [place] [address] OFFICE VISIT Date of Service: 05/10/24 MR#: [id number] Acct: [id number] Name: NORM VARGAS Rep #: [id number] : 1980 Provider: Bola Harris DO Age/Sex: 43/F Location: [facility] [place] Status: Signed Intake Vital Signs 04/01/2415:13 Height 5 ft 1 in Intake Visit Reasons: Pancreas Pain Allergies Iodinated Contrast Media (CT) Allergy (Verified 04/01/24 15:13) Anaphylaxisketorolac tromethamine (From Toradol) Allergy (Verified 04/01/24 15:13) Rashmetronidazole (From Flagyl) Allergy (Verified 04/01/24 15:13) HivesPenicillins Allergy (Verified 04/01/24 15:13) Hivesdicyclomine (From Bentyl) Adverse Reaction (Mild, Verified 04/01/24 15:13) Hivesaspirin Adverse Reaction (Verified 04/01/24 15:13) Upset Stomach Medications ?Medication ?Instructions ?Recorded ?Confirmed ?Type gabapentin 400 mg capsule 400 mg PO TID PRN NEUROPATHY 10/03/20 05/10/24 History aripiprazole 10 mg tablet 10 mg PO DAILY DEPRESSION 10/25/23 05/10/24 History lorazepam 0.5 mg tablet 0.5 mg PO DAILY PRN ANXIETY #7 01/26/24 05/10/24 Rx tabs mesalamine 1.2 gram tablet,delayed 2.4 g (2 x 1.2 gram) PO DAILY 30 02/09/24 05/10/24 Rx release days #60 tabs trazodone 50 mg tablet 50 mg PO QHS 02/23/24 05/10/24 History hyoscyamine sulfate 0.125 mg 0.125 mg PO Q6H PRN abdominal 02/24/24 05/10/24 Rx disintegrating tablet discomfort #10 tabs metoclopramide HCl 10 mg tablet 10 mg PO Q12H PRN PRN nausea and 02/24/24 05/10/24 Rx vomiting #8 tabs prednisone 10 mg tablet 40 mg PO DAILY 04/01/24 05/10/24 History PFSH Medical History Anxiety Kidney stones Smoker Abdominal pain Intractable nausea and vomiting History of pancreatitis Pancreatitis Bipolar disorder Lung nodule Migraine Chronic pain Ovarian cyst Obesity Incomplete right bundle branch block Hyperlipidemia History of uterine cancer (2006) Right tubo-ovarian mass Ureteral stone with hydronephrosis History of renal calculi Surgical History History of cholecystectomy H/O ovarian cystectomy (09/2019) History of bilateral oophorectomy History of hysterectomy History of tubal ligation Family History Aunt Breast cancerGrandfather CAD (coronary artery disease)Father Heart disease, Onset Age: 73 Triple bypassMother Heart disease, Onset Age: 62Other Diabetes Social History household members: none Smoking Status: Current every day smoker tobacco type: cigarettes Tobacco: How many years used: 15 alcohol intake: current substance use type: does not use HPI HPI Details: NORM VARGAS, is a 43 F who presents to the office today for follow up. OV 5.3.24 pt reports she has been having the following symptoms since August of 2023. She is experiencing LLQ pain; daily N/V and is unable to keep any food down; alternating constipation and diarrhea that has a green color. Pt states that she is taking Creon, pantoprazole, and Phenergan. abd/pelvis CT 6 No acute findings in the abdomen or pelvis. Nonobstructing left nephrolithiasis. Colonic fecal burden consistent with clinical constipation. abd/pelvis CT 03.05.24 Hepatic cysts. Nonobstructive left renal calculi. OV 8..24 pt reports continued symptoms of N/V/D; occasional constipation, abd pain, HB, and difficulty swallowing. Pt reports that she is getting fitted for dentures in 3 months. ROS Const Constitutional: Positive for fatigue, headache(s) and weight change (weight loss); No fever(s) ENT ENT: Positive for headache(s) and difficulty swallowing Gastro GI: Positive for abdominal pain, bloating, change in bowel habits, constipation, diarrhea, heartburn, difficulty swallowing, excessive flatus, nausea/dyspepsia and vomiting; No belching, change in stool character, coffee ground emesis, cramping, feeling full early, incontinent of stools, Vomiting blood/hematemesis, Blood in stool, loose stools, Black,tarry stools, pain with swallowing or other Musc Musculoskeletal: Positive for joint pain and back pain Skin Skin: No yellowing of the eye or itchy eyes Neuro Neurology: Positive for headache(s) Psych Psychiatric: No anxiety and No depression Endo Endocrine: Positive for fatigue and weight change (weight loss) Aller/Imm Allergy/Immunologic: No itchy eyes Feroz/Lymp Hematologic/Lymphatic: No easy bleeding or easy bruising Exam Const General: cooperative and comfortable Nutritional Appearance: average body habitus and well nourished HENMT Head: normal to inspection Ears: hearing grossly normal bilaterally Nose: external nose normal Face and sinus: normal facial exam Mouth: oral mucosae normal Throat: posterior oropharynx normal Eyes General: appearance normal, both eyes and all related structures Neck Neck: normal visual inspection Chest Chest palpation & inspection: normal inspection of the chest and normal palpation of entire chest wall Resp Effort & Inspection: normal respiratory effort Auscultation: Bilateral: Clear to Auscultation Cardio Palpation: normal PMI Rate: regular rate Rhythm: regular rhythm GI Inspection: normal to inspection Auscultation: normal bowel sounds Percussion: normal to percussion Palpation: no hepatosplenomegaly Skin General: no rashes or lesions noted Neuro General: patient alert Extrem General: normal to inspection Psych Affect: normal affect Assessment and Plan Assessment and Plan (1) Nausea & vomiting: Status: Acute Plan: She does have upper limit of normal of her gastric emptying study that could be contributing to her nausea vomiting. We will send biochemical workup to see if we can determine why she has upper limit normal of gastric emptying. We discussed possibly using a scopolamine patch versus Reglan versus her current Compazine that has been only somewhat helpful. She does not want to try anything new at this time. She may need a upper or lower endoscopy along with capsule endoscopy to determine if there is any autoimmune disease affecting her GI tract such as eosinophilic gastroenteritis or inflammatory bowel disease. Her 1 antibody was positive for Crohn's disease but she is not exhibiting signs or symptoms of Crohn's disease. Since she is still having a lot of abdominal pain, cramping bloating we will perform an upper and lower endoscopy to evaluate her upper and lower GI tract. (2) Acute pancreatitis: Status: Acute Plan: I have no documented evidence that she has had acute pancreatitis. She has had hyperlipasemia but no documented evidence of inflammation in the pancreas was seen on imaging. Orders: Orders EGD 06/10/24 R10.9 - Unspecified abdominal pain, R11.2 - Nausea with vomiting, unspecified, R89.9 - Unspecified abnormal finding in specimens from other organs, systems and tissues Colonoscopy 06/10/24 R10.9 - Unspecified abdominal pain, R11.2 - Nausea with vomiting, unspecified, R89.9 - Unspecified abnormal finding in specimens from other organs, systems and tissues I have examined the patient and the H&P has been reviewed. There are no clinical changes since date of exam.
[2024-05-27] MEDS: Lactated Ringers 1,000 ML 15 ML IV (13:43)
--- NOTE | 2024-05-27 13:48 | PRE.ANES_ITS ---
ASA Classification* ASA Classification ASA Classification: 3 Assessment & Plan Anesthesia* Anesthesia Assessment Anesthesia Assessment: Discussed sedation and/or anesthesia options, risks, benefits, and alternatives with patient/parents/legal guardian/POA. Questions invited. The patient/parents/legal guardian/POA seems to understand and agrees to proceed with anesthesia plan. Reviewed the physical assessment, medical history, allergy history and patient home medications list prior to surgery/procedure/anesthetic and documented any changes. Performed airway and anesthesia risk assessments. Anesthesia Type Anesthesia Type: MAC Anesthesia Focused Assessment* Temperature: 98.2 F Pulse Rate: 70 Blood Pressure: 131/65 Respiratory Rate: 16 Pulse Ox: 98 Airway Assessment Mouth opens: >3 cm Mallampati Score: II Focused Labs Anesthesia Preop lab: CBC WBC 7.5 K/mm3 (4.4-11.0) 04/01/24 15:30 RBC 4.59 M/mm3 (4.2-5.4) 04/01/24 15:30 Hgb 13.6 g/dL (12.0-15.0) 04/01/24 15:30 Hct 41.1 % (37-47) 04/01/24 15:30 Plt Count 217 K/mm3 (150-450) 04/01/24 15:30 CHEMISTRY Potassium 3.9 mmol/L (3.5-5.1) 04/01/24 15:30 Sodium 138 mmol/L (136-145) 04/01/24 15:30 Magnesium 2.1 mg/dL (1.6-2.6) 02/11/20 06:25 BUN 16 mg/dL (7-18) 04/01/24 15:30 Creatinine 1.11 mg/dL (0.55-1.02) H 04/01/24 15:30 Glucose 109 mg/dL (74-106) H 04/01/24 15:30 TSH 2.43 uIU/mL (0.358-3.74) 01/15/24 12:13 COAG PT 13.2 SECONDS (11.7-14.9) 02/23/24 10:53 HCG, Quant 6 mIU/mL (1-3) H 02/18/20 16:15 Urine Test Negative Negative 02/10/23 15:20 Pre-Assessment Diagnosis/Proposed Procedure Planned Operative Procedure(s): COLONOSCOPY, EGD Anesthesia History Anesthesia History - video player mechanic: Anesthesia History - video player mechanic Hx Hospitalization Yes: PANCREATITIS 11/202305/25/24 14:21 Any Problems With Anesthesia No 05/25/24 14:21 Cholinesterase deficiency No 05/25/24 14:21 You/Your Family Experience No 05/25/24 14:21 fever (hyperthermia) with Relationship Recent Exposure to Contagious No 05/27/24 13:34 Disease Does patient have nerve No 05/25/24 14:21 stimulator Patient instructed to have device shut off --Does patient have Pacemaker No 05/27/24 13:34 or ICD? When Was Last Pacemaker Check QUESTION #4 FULL TEXT: You/Your Family Experience fever (hyperthermia) with Anesthesia Last Oral Intake Last Oral intake: Last Oral Intake NPO since 09:00 05/27/24 13:34 Meds taken in AM with sips of No 05/27/24 13:34 water? Meds patient instructed to take am of surgery PONV PONV - video player mechanic: PONV - video player mechanic Female Yes 05/25/24 14:21 HX of Motion Sickness No 05/25/24 14:21 HX of N/V After Surgery No 05/25/24 14:21 Non-Smoker No 05/25/24 14:21 Duration of Surgery greater No 05/25/24 14:21 than 60 minutes Number of Risk Factors 1 05/25/24 14:21 PONV Score Low Risk 05/25/24 14:21 Height & Weight Height & Weight: Anesthesia: Height & Weight Height 5 ft 1 in 05/27/24 13:34 Weight: 88.6 kg 05/27/24 13:34 Body Mass Index (BMI) 36.8 05/27/24 13:34 Respiratory Assessment Respiratory Assessment - video player mechanic: Respiratory Tract Infection Hx - video player mechanic Hx Respiratory Tract Infection No 05/25/24 14:21 STOP Sleep Apnea STOP Sleep Apnea - video player mechanic: STOP Sleep Apnea - video player mechanic Hx Hypertension No 05/25/24 14:21 Hx Sleep Apnea No 05/25/24 14:21 CPAP BIPAP Do you snore loudly (louder No 05/25/24 14:21 than talking or can be heard Do you often feel tired/ No 05/25/24 14:21 fatigued/ sleepy during daytime? Has anyone observed you stop No 05/25/24 14:21 breathing during sleep? STOP Results Negative 05/25/24 14:21 QUESTION #5 FULL TEXT : Do you snore loudly (louder than talking or can be heard through closed doors)? Tobacco Use History Tobacco Use History - video player mechanic: Tobacco Use History - video player mechanic Tobacco Use Cigarettes 01/14/21 10:27 Smoking Status Current every day smoker 05/25/24 14:21 Hx Tobacco Use No 05/25/24 14:21 Years Smoking Packs Smoked per Day Smoking Cessation Date was within the last 15 years Hx Smoking Cessation Date Hx Smoking Cessation No 05/25/24 14:21 Counseling Hematologic Medial History Hematologic Hx - video player mechanic: Hematologic Medical Hx - technical photographer Hx of Blood Transfusion Yes 05/25/24 14:21 Hx of Transfusion in last 3 No 05/25/24 14:21 Months Date of Last Transfusion (if within last 3 months) Ever experience any problems No 05/25/24 14:21 with transfusion(s)? Specify any problems Hx of Preganancy in last 3 No 05/25/24 14:21 Months Nurse Filling Out Transfusion VCHRISTIN 05/25/24 14:21 & Questions: Date: 05/25/24 05/25/24 14:21 Time: 14:22 05/25/24 14:21 Patient unable to answer at this time (ie. confused, unrespo /Reproduction History /Reproductive History - video player mechanic: /Reproductive Hx- video player mechanic Hx Now Gestational Age (in weeks): EDC: Hx Hx Para Hx Section SAB No 05/25/24 14:21 Active Medications Active Medications: Current Medications Generic Name Dose Route Start Last Admin Trade Name Freq PRN Reason Stop Dose Admin Lactated Ringer's 1,000 mls @ 15 mls/hr 05/27/24 13:30 05/27/24 13:43 IV 15 mls/hr .Q48H KERI Administration PFSH Medical History Cancer Depression Rheumatoid arthritis Arthritis Back pain Difficulty chewing Gastric reflux Chronic cough History of Holter monitoring History of stress test Cardiology follow-up encounter Anxiety Kidney stones Smoker Abdominal pain Intractable nausea and vomiting History of pancreatitis Pancreatitis Bipolar disorder Lung nodule Migraine Chronic pain Ovarian cyst Obesity Incomplete right bundle branch block Hyperlipidemia History of uterine cancer (2006) Right tubo-ovarian mass Ureteral stone with hydronephrosis History of renal calculi Home Medications ?Medication ?Instructions ?Recorded ?Last Taken ?Type gabapentin 400 mg capsule 400 mg PO TID PRN NEUROPATHY 10/03/20 12/02/23 History aripiprazole 10 mg tablet 10 mg PO DAILY DEPRESSION 10/25/23 12/02/23 History lorazepam 0.5 mg tablet 0.5 mg PO DAILY PRN ANXIETY #7 01/26/24 Unknown Rx tabs mesalamine 1.2 gram tablet,delayed 2.4 g (2 x 1.2 gram) PO DAILY 30 02/09/24 Unknown Rx release days #60 tabs trazodone 50 mg tablet 50 mg PO QHS 02/23/24 Unknown History hyoscyamine sulfate 0.125 mg 0.125 mg PO Q6H PRN abdominal 02/24/24 Unknown Rx disintegrating tablet discomfort #10 tabs diphenhydramine HCl 25 mg capsule 25 mg PO QHS 05/25/24 Unknown History (Allergy (diphenhydramine)) escitalopram oxalate 20 mg tablet 20 mg PO DAILY 05/25/24 Unknown History pantoprazole 40 mg tablet,delayed 40 mg PO DAILY 05/25/24 Unknown History release promethazine 25 mg tablet 25 mg PO Q8H PRN PRN 05/25/24 Unknown History nausea/vomiting Allergy/AdvReac Type Severity Reaction Status Date / Time Iodinated Contrast Media (CT) Allergy Anaphylaxis Verified 05/27/24 13:33 ketorolac tromethamine (From Allergy Rash Verified 05/27/24 13:33 Toradol) metronidazole (From Flagyl) Allergy Hives Verified 05/27/24 13:33 Penicillins Allergy Hives Verified 05/27/24 13:33 dicyclomine (From Bentyl) AdvReac Mild Hives Verified 05/27/24 13:33 aspirin AdvReac Upset Verified 05/27/24 13:33 Stomach Family History Aunt Breast cancer Grandfather CAD (coronary artery disease) Father Heart disease, Onset Age: 73 Triple bypass Mother Heart disease, Onset Age: 62 Other Diabetes Surgical History Hx of tooth extraction History of cholecystectomy H/O ovarian cystectomy (09/2019) History of bilateral oophorectomy History of hysterectomy History of tubal ligation Social History household members: none Smoking Status: Current every day smoker tobacco type: cigarettes Tobacco: How many years used: 15 alcohol intake: current substance use type: does not use Review of Systems (Anesthesia) ROS Narrative System reviewed and no additional complaints, except as documented.
--- NOTE | 2024-05-27 14:30 | COLBX_PTH ---
PATIENT: NORM VARGAS LOC: EN U#:[id number] AGE/SX: 43/F ROOM: RE05/27/[address]: Dr. Bola Harris DO : 1980 BED: DIS: 05/27/2024 SPEC #: [id number] RECD: 05/30/24 07:14 STATUS: NOA GUANAKO #: [id number] LIANE: 05/27/24 14:[address]: Bola Harris DEPT: SURGICAL PATHOLOGY RECD BY: Maria Conner ENTERED: 05/30/24 10:32 SP TYPE: COLON BX OTHR DR: Dr. Michell Baca MD Tissues: A - Duodenum, NOS B - Gastric mucous membrane C - Esophagus, NOS D - Ileum, NOS E - COLON BIOPSY Procedures: Special Stain Group I Surgery Specimen Level IV Alcian Blue/PAS (control) HEADER OPERATION: Colonoscopy with biopsy, EGD with biopsy PRE-OP DIAGNOSIS: Nausea/vomiting, abdominal pain TISSUE SUBMITTED: A- Duodenal biopsy, B- Antral biopsy, C- Distal esophagus biopsy, D- Terminal ileum biopsy, E- Random colon biopsy MICROSCOPIC DIAGNOSIS A. Duodenum, biopsy: A fragment of duodenal mucosa with mild non-specific chronic inflammation. B. Antral biopsy: Mild gastritis. See microscopic description and comment. C. Distal esophagus, biopsy: Fragments of gastroesophageal mucosa with chronic inflammation. Intestinal metaplasia (goblet cell metaplasia) not identified. See comment. D. Terminal ileum, biopsy: Fragments of small intestinal mucosa, no pathologic diagnosis.E. Colon, random biopsy: Fragments of colonic mucosa, no pathologic diagnosis. SJ/mr 05/31/2024 COMMENT B. The results of immunohistochemistry for Helicobacter pylori will be reported separately ([id number]). C. Alcian blue/PAS stain with matched control is used in the evaluation of the specimen. This specimen predominantly consists of squamous mucosa. MICROSCOPIC DESCRIPTION Slides are reviewed. B. The specimen shows fragments of gastric mucosa with chronic inflammatory cell infiltrates in the lamina propria consisting of lymphocytes and plasma cells, consistent with mild chronic gastritis. GROSS DESCRIPTION A. Received in fixative is one container labeled with the patient's name and designated Duodenal biopsy. The specimen consists of one irregular fragment of light musa soft tissue that measures 0.3 x 0.3 x 0.1 cm. The specimen is totally submitted in one cassette. B. Received in fixative is one container labeled with the patient's name and designated Antral biopsy. The specimen consists of two irregular fragments of light musa soft tissue that measures 0.4 x 0.3 x 0.1 cm. The specimen is totally submitted in one cassette. C. Received in fixative is one container labeled with the patient's name and designated Distal esophagus biopsy. The specimen consists of two irregular fragments of light musa soft tissue that measures 0.3 x 0.2 x 0.1 cm. The specimen is totally submitted in one cassette. D. Received in fixative is one container labeled with the patient's name and designated Terminal ileum biopsy. The specimen consists of two irregular fragments of light musa soft tissue that in aggregate measure 0.6 x 0.3 x 0.1 cm. The specimen is totally submitted in one cassette. E. Received in fixative is one container labeled with the patient's name and designated Random colon biopsy. The specimen consists of multiple irregular fragments of light musa soft tissue that in aggregate measure 1.0 x 0.5 x 0.1 cm. The specimen is totally submitted in one cassette. SJ 05/30/2024 TC:3 CPT:24165r1,95031
--- NOTE | 2024-05-27 14:30 | IMM_PTH ---
PATIENT: NORM VARGAS LOC: EN U#:[id number] AGE/SX: 43/F ROOM: RE05/27/[address]: Dr. Bola Harris DO : 1980 BED: DIS: 05/27/2024 SPEC #: [id number] RECD: 05/30/24 08:26 STATUS: NOA REQ #: [id number] LIANE: 05/27/24 14:[address]: Bola Harris DEPT: IMMUNOHISTOCHEMISTRY RECD BY: Faraz Diaz ENTERED: 05/30/24 08:26 SP TYPE: IMMUNO OTHR DR: Dr. Michell Baca MD Tissues: B - Gastric mucous membrane Procedures: H Pylori (initial) PHYSICIAN & INSTITUTION [place] [address] SPECIMEN INFORMATION: Tissue Source: B- Antral biopsy Clinical Info: Nausea/vomiting, abdominal pain Specimen Number: [id number] CPT code: 58980 METHODOLOGY: Deparaffinized sections of prefer/formalin-fixed tissue or PAP/DQ stained slides are incubated with monoclonal/polyclonal antibodies/oligonucleotide probes. Localization is made via biotin free immunoperoxidase method. Appropriate controls are performed and reacted as expected. Results on target cell population are indicated in the following table: RESULTS: ANTIBODY / CLONE RESULT Block B H Pylori (polyclonal) negative These tests were developed and their performance characteristics determined by [facility]. They may not have been cleared or approved by the U.S. Food and Drug Administration. The FDA has determined that such clearance or approval is not necessary. The above immunohistochemical/dualISH markers are ordered and reviewed by the Pathologist. INTERPRETATION: B. Antrum, biopsy: Negative for Helicobacter pylori organisms. NAV/ 05/31/2024
--- NOTE | 2024-05-27 15:15 | OP.EGD_ITS ---
Patient Name: Sally Mcgregor Procedure Date: 05/27/2024 2:37 PM Date of : 1980 Age: 43 Procedure: Upper GI endoscopy Indications: Epigastric abdominal pain, Heartburn, Failure to respond to medical treatment Providers: Bola Harris DO Referring MD: Michell Baca Medicines: Monitored Anesthesia Care Patient Profile: This is a 43 year old female. Refer to note in patient chart for documentation of history and physical. Patient has symptoms of chronic abdominal cramping, acute epigastric abdominal pain, acute dyspepsia and acute throat burning. Complications: No immediate complications. Procedure: Pre-Anesthesia Assessment: - Prior to the procedure, a History and Physical was performed, and patient medications and allergies were reviewed. The patient is competent. The risks and benefits of the procedure and the sedation options and risks were discussed with the patient. All questions were answered and informed consent was obtained. Patient identification and proposed procedure were verified by the physician in the pre-procedure area. Mental Status Examination: alert and oriented. Airway Examination: normal oropharyngeal airway and neck mobility. Respiratory Examination: clear to auscultation. CV Examination: normal. Prophylactic Antibiotics: The patient does not require prophylactic antibiotics. Prior Anticoagulants: The patient has taken no anticoagulant or antiplatelet agents. ASA Grade Assessment: II - A patient with mild systemic disease. After reviewing the risks and benefits, the patient was deemed in satisfactory condition to undergo the procedure. The anesthesia plan was to use monitored anesthesia care (MAC). Immediately prior to administration of medications, the patient was re-assessed for adequacy to receive sedatives. The heart rate, respiratory rate, oxygen saturations, blood pressure, adequacy of pulmonary ventilation, and response to care were monitored throughout the procedure. The physical status of the patient was re-assessed after the procedure. After obtaining informed consent, the endoscope was passed under direct vision. Throughout the procedure, the patient's blood pressure, pulse, and oxygen saturations were monitored continuously. The Colonoscope was introduced through the mouth, and advanced to the second part of duodenum. The upper GI endoscopy was accomplished without difficulty. The patient tolerated the procedure well. Scope In: 2:52:27 PM Scope Out: 2:55:20 PM Total Procedure Duration Time 0 hours 2 minutes 53 seconds Findings: LA Grade B (one or more mucosal breaks greater than 5 mm, not extending between the tops of two mucosal folds) esophagitis with no bleeding was found 37 to 39 cm from the incisors. Biopsies were taken with a cold forceps for histology. Verification of patient identification for the specimen was done. Estimated blood loss was minimal. A few localized 5 mm erosions with stigmata of recent bleeding were found in the gastric antrum. Biopsies were taken with a cold forceps for histology. Verification of patient identification for the specimen was done. Biopsies were taken with a cold forceps for Helicobacter pylori testing. Verification of patient identification for the specimen was done. Estimated blood loss was minimal. A few localized erosions without bleeding were found in the duodenal bulb. Biopsies were taken with a cold forceps for histology. Verification of patient identification for the specimen was done. Estimated blood loss was minimal. Impression: - LA Grade B erosive esophagitis with no bleeding. Biopsied. - Erosive gastropathy with stigmata of recent bleeding. Biopsied. - Duodenal erosions without bleeding. Biopsied. Recommendation: - Discharge patient to home. - Resume previous diet. - Continue present medications. - Await pathology results. Procedure Code(s): --- Professional --- 34083, Esophagogastroduodenoscopy, flexible, transoral; with biopsy, single or multiple CPT copyright 2021 [employer]. All rights reserved. The codes documented in this report are preliminary and upon consulting sme review may be revised to meet current compliance requirements. Bola Harris DO 05/27/2024 3:14:23 PM This report has been signed electronically. Number of Addenda: 0 Note Initiated On: 05/27/2024 2:37 PM
--- NOTE | 2024-05-27 15:15 | OP.CCLET_ITS ---
05/27/2024 Michell Baca [address] [place] [address] Re : Upper GI endoscopy procedure for Sally Mcgregor Dear Dr. Baca This procedure was performed on Monday, May 27, 2024. My impressions and recommendations are as follows: Impressions : - LA Grade B erosive esophagitis with no bleeding. Biopsied. - Erosive gastropathy with stigmata of recent bleeding. Biopsied. - Duodenal erosions without bleeding. Biopsied. Recommendations : - Discharge patient to home. - Resume previous diet. - Continue present medications. - Await pathology results. My findings are described in the full procedure note, which is enclosed. If I can be of further assistance, please feel free to contact me at . Sincerely, Bola Harris, 05/27/2024 3:14:23 PM This report has been signed electronically.
--- NOTE | 2024-05-27 15:17 | OP.CCLET_ITS ---
05/27/2024 Michell Baca [address] [place] [address] Re : Colonoscopy procedure for Sally Mcgregor Dear Dr. Baca This procedure was performed on Monday, May 27, 2024. My impressions and recommendations are as follows: Impressions : - Congested mucosa in the sigmoid colon, in the descending colon and in the transverse colon. Biopsied. - The examined portion of the ileum was normal. Biopsied. Recommendations : - Discharge patient to home. - Resume previous diet. - Continue present medications. - Await pathology results. - Repeat colonoscopy is recommended. The colonoscopy date will be determined after pathology results from today's exam become available for review. My findings are described in the full procedure note, which is enclosed. If I can be of further assistance, please feel free to contact me at . Sincerely, Bola Harris, 05/27/2024 3:16:20 PM This report has been signed electronically.
--- NOTE | 2024-05-27 15:17 | OP.COLON_ITS ---
Patient Name: Sally Mcgregor Procedure Date: 05/27/2024 2:55 PM Date of : 1980 Age: 43 Procedure: Colonoscopy Indications: Generalized abdominal pain, Chronic diarrhea Providers: Bola Harris DO Referring MD: Michell Baca Medicines: Monitored Anesthesia Care Patient Profile: This is a 43 year old female. Refer to note in patient chart for documentation of history and physical. Patient has symptoms of chronic abdominal cramping, acute epigastric abdominal pain, acute dyspepsia and acute throat burning. Last Colonoscopy: date unknown. Unable to locate last colonoscopy report. Complications: No immediate complications. Procedure: Pre-Anesthesia Assessment: - Prior to the procedure, a History and Physical was performed, and patient medications and allergies were reviewed. The patient is competent. The risks and benefits of the procedure and the sedation options and risks were discussed with the patient. All questions were answered and informed consent was obtained. Patient identification and proposed procedure were verified by the physician in the pre-procedure area. Mental Status Examination: alert and oriented. Airway Examination: normal oropharyngeal airway and neck mobility. Respiratory Examination: clear to auscultation. CV Examination: normal. Prophylactic Antibiotics: The patient does not require prophylactic antibiotics. Prior Anticoagulants: The patient has taken no anticoagulant or antiplatelet agents. ASA Grade Assessment: II - A patient with mild systemic disease. After reviewing the risks and benefits, the patient was deemed in satisfactory condition to undergo the procedure. The anesthesia plan was to use monitored anesthesia care (MAC). Immediately prior to administration of medications, the patient was re-assessed for adequacy to receive sedatives. The heart rate, respiratory rate, oxygen saturations, blood pressure, adequacy of pulmonary ventilation, and response to care were monitored throughout the procedure. The physical status of the patient was re-assessed after the procedure. After I obtained informed consent, the scope was passed under direct vision. Throughout the procedure, the patient's blood pressure, pulse, and oxygen saturations were monitored continuously. The Colonoscope was introduced through the anus and advanced to the terminal ileum. The colonoscopy was performed without difficulty. The patient tolerated the procedure well. The quality of the bowel preparation was adequate. The terminal ileum, ileocecal valve, appendiceal orifice, and rectum were photographed. Scope In: 2:57:12 PM Scope Withdrawal Time 0 hours 10 minutes 0 seconds Scope Out: 3:10:15 PM Total Procedure Duration Time 0 hours 13 minutes 3 seconds Findings: The perianal and digital rectal examinations were normal. An area of mildly congested mucosa was found in the sigmoid colon, in the descending colon and in the transverse colon. Biopsies were taken with a cold forceps for histology. Verification of patient identification for the specimen was done. Estimated blood loss was minimal. The terminal ileum appeared normal. Biopsies were taken with a cold forceps for histology. Verification of patient identification for the specimen was done. Estimated blood loss was minimal. Impression: - Congested mucosa in the sigmoid colon, in the descending colon and in the transverse colon. Biopsied. - The examined portion of the ileum was normal. Biopsied. Recommendation: - Discharge patient to home. - Resume previous diet. - Continue present medications. - Await pathology results. - Repeat colonoscopy is recommended. The colonoscopy date will be determined after pathology results from today's exam become available for review. Procedure Code(s): --- Professional --- 87691, Colonoscopy, flexible; with biopsy, single or multiple CPT copyright 2021 [employer]. All rights reserved. The codes documented in this report are preliminary and upon digital developer review may be revised to meet current compliance requirements. Bola Harris DO 05/27/2024 3:16:20 PM This report has been signed electronically. Number of Addenda: 0 Note Initiated On: 05/27/2024 2:55 PM
--- NOTE | 2024-05-27 15:19 | PCM.POST.ANE ---
Anesthesia: Postop Eval I Current Vital Signs Temperature: 98 F Pulse Rate: 83 Blood Pressure: 100/40 Respiratory Rate: 16 Pulse Ox: 100 Oxygen Delivery Method: Room Air Assessment Airway patent: Yes Spontaneous unlabored respirations: Yes Mental status: Awake and Calm nausea: No Vomiting: No Anesthesia Complication: No Fluid Hydration Crystalloid volume administer (ml): 800 Total IV fluid infused: 800 Progress Note Anesthesia document: Postop Eval 1 completed: Yes
--- NOTE | 2024-05-27 15:31 | PCM.POSTANE2 ---
Anesthesia Postop Eval I Sum Postop Eval Completion status Anesthesia document: Postop Eval 1 completed: Yes Anesthesia Postop Eval I Summary Anesthesia Postop Eval I Summary: Anesthesia Postop Eval I: Assessment Summary Airway patent Yes 05/27/24 15:20 [email or web address] Spontaneous unlabored Yes 05/27/24 15:20 [email or web address] respirations Mental status Awake,Calm 05/27/24 15:20 [email or web address] nausea No 05/27/24 15:20 [email or web address] Vomiting No 05/27/24 15:20 [email or web address] Anesthesia Postop Eval I: Fluid Summary Crystalloid volume administer 800 05/27/24 15:20 [email or web address] (ml) Colloids volume administered ( ml) Blood Product volume administered (ml) Total IV fluid infused 800 05/27/24 15:20 [email or web address] Anesthesia Postop Eval I: Summary Notes Anesthesia Complication No 05/27/24 15:20 [email or web address] Anesthesia Complication Comment: Post-operative progress note Anesthesia: Postop Eval II Evaluation Mental status: Awake Pain Level: 0 nausea: No Vomiting: No
== END 2024-05-27 15:58 | disposition home or self-care (01) ==
LOC: EN 13:07 → AC 13:11
PROVIDERS: PCP Internal Medicine; Referring Provider Internal Medicine; Visit Provider Internal Medicine Gastroenterology
PROC: 0DJD8ZZ Inspection of Lower Intestinal Tract, Via Natural or Artificial Opening Endoscopic (ICD-10-PCS; CPT 45378; principal; 2024-05-27 14:25)
DX: K85.90 Acute pancreatitis without necrosis or infection, unspecified (principal); F31.9 Bipolar disorder, unspecified; F17.210 Nicotine dependence, cigarettes, uncomplicated; R11.2 Nausea with vomiting, unspecified; E78.5 Hyperlipidemia, unspecified; K20.80 Other esophagitis without bleeding; Z79.899 Other long term (current) drug therapy; Z90.49 Acquired absence of other specified parts of digestive tract; Z90.6 Acquired absence of other parts of urinary tract; Z90.722 Acquired absence of ovaries, bilateral; Z90.710 Acquired absence of both cervix and uterus; Z98.51 Tubal ligation status; K26.9 Duodenal ulcer, unspecified as acute or chronic, without hemorrhage or perforation; K63.89 Other specified diseases of intestine; K31.89 Other diseases of stomach and duodenum
CPT/HCPCS: 45380; 43239; 88305; 88312; 88342; J7120; J2405

== ENCOUNTER 2024-05-28 18:57 | Emergency (ER) | payer MEDICAID, SELFPAY ==
[2024-05-28 18:58] VITALS: BP 123/75; PULSE 76; RESP 16; TEMP 36.2; O2SAT 97; BMI 38.7
--- NOTE | 2024-05-28 19:26 | CT_ITS ---
EXAM: CT ABDOMEN AND PELVIS WITHOUT INTRAVENOUS CONTRAST CLINICAL INDICATION: Pain TECHNIQUE: Helically acquired images were obtained of the abdomen and pelvis without intravenous contrast. This CT exam was performed using one or more of the following dose reduction techniques: automated exposure control, adjustment of the mA and/or kV according to patient size, and/or use of iterative reconstruction technique. COMPARISON: 02/24/2024 FINDINGS: LOWER THORAX: No significant abnormality. Lung bases are clear. No cardiomegaly. No significant pericardial effusion. ABDOMEN: LIVER: Multiple hepatic cysts are present for which no follow-up is indicated. GALLBLADDER AND BILE DUCTS: Status post cholecystectomy. No intra- or extrahepatic biliary ductal dilation. PANCREAS: No significant abnormality. No focal cystic mass. SPLEEN: No significant abnormality. Normal size without focal cystic or solid mass. ADRENALS: No significant abnormality. No nodules. KIDNEYS AND URETERS: Multiple nonobstructive left renal calyceal stones are present. No right-sided urolithiasis and no evidence of hydronephrosis. Normal renal size and position. STOMACH AND BOWEL: No significant abnormality. No stomach or bowel distention. No focal inflammatory change. PELVIS: APPENDIX: There is a normal appendix in the right lower quadrant. BLADDER: No significant abnormality. REPRODUCTIVE: Status post hysterectomy. ABDOMEN and PELVIS: INTRAPERITONEAL SPACE: No significant abnormality. No ascites or other fluid collection. No free air. BONES/JOINTS: Degenerative changes in the spine. No suspicious lytic or blastic abnormality. SOFT TISSUES: Fat-containing umbilical hernia. VASCULATURE: Trace atherosclerosis. Abdominal aorta is non-dilated. LYMPH NODES: No significant abnormality. No enlarged lymph nodes. CT/Abdomen/Pelvis without Cont IMPRESSION: 1. Multiple nonobstructive left renal calyceal stones are present. No right-sided urolithiasis and no evidence of hydronephrosis. 2. No evidence of acute pathology. Electronically Signed: Joe Zimmerman DO at 20:05 EDT ,
[2024-05-28] MEDS: Ondansetron 4 MG/2 ML Vial IV (19:36)
[2024-05-28] MEDS: 0.9% Normal Saline (1000mL) 1,000 ML 999 ML IV (19:36)
[2024-05-28] MEDS: Morphine 4 MG/ML Syringe IV (19:36)
[2024-05-28 19:38] LABS: Absolute Lymphocyte Count 3.28 X10^3/uL (0.83-4.51); Absolute Neutrophil Count 3.9 X10^3/uL (2.0-7.7); Basophil# 0.03 X10^3/uL; Basophil% 0.4 % (0-1); Eosinophil# 0.18 X10^3/uL; Eosinophils% 2.3 % (0-5); Hematocrit 37.7 % (37-47); Hemoglobin 12.5 g/dL (12.0-15.0); Lymphocyte # 3.28 X10^3/ul (0.83-4.51); Lymphocyte % 41.3 % (19-41); Mean Corp Hgb Conc 33.2 g/dL (32-36); Mean Corpuscular Hgb 30.2 pg (27.0-32.0); Mean Corpuscular Volume 91.1 fL (81-99); Mean Platelet Vol. 10.5 fl (6.2-12.0); Monocyte# 0.57 X10^3/uL; Monocyte% 7.2 % (0-10); NRBC Flagged by Analyzer 0 % (0-5); Neutrophil # 3.87 X10^3/uL (2.7-7.7); Neutrophil % 48.5 % (47-70); Platelet Count 226 K/mm3 (150-450); RBC Distribution Width CV 12.5 % (11.6-14.6); RBC Distribution Width SD 41.5 fl (35.1-43.9); Red Blood Count 4.14 M/mm3 (4.2-5.4)
[2024-05-28 19:47] LABS: Bacteria 0 SEEN /hpf (None Seen); Mucous, Urine 0 SEEN /hpf (<or=2+); White Blood Cells 0 SEEN /hpf (0-5)
--- NOTE | 2024-05-28 19:47 | EX.ED.DYSGE1 ---
HPI <SVETA Stout - Last Filed: 05/28/24 20:33> History of Present Illness Chief Complaint: Abd Pain Narrative Narrative: Patient is a 43-year-old female with history of chronic abdominal pain, anxiety, GERD who presents to the emergency department for abdominal pain. Patient is currently seeing Dr. Harris, she does have history of pancreatitis. Patient had a EGD as well as a colonoscopy yesterday, patient was given fentanyl, and she believes that this is the cause of her leg shaking and anxiety. Patient states she also had some abdominal pain today. She called Dr. Harris's office who they referred her to the emergency department. I did speak with Dr. Harris, he would like laboratory values including amylase lipase, as well as a CT scan. [facility] <SVETA Stout - Last Filed: 05/28/24 20:33> [facility] Medical History Cancer Depression Rheumatoid arthritis Arthritis Back pain Difficulty chewing Gastric reflux Chronic cough History of Holter monitoring History of stress test Cardiology follow-up encounter Anxiety Kidney stones Smoker Abdominal pain Intractable nausea and vomiting History of pancreatitis Pancreatitis Bipolar disorder Lung nodule Migraine Chronic pain Ovarian cyst Obesity Incomplete right bundle branch block Hyperlipidemia History of uterine cancer (2006) Right tubo-ovarian mass Ureteral stone with hydronephrosis History of renal calculi Home Medications ?Medication ?Instructions ?Recorded ?Last Taken ?Type gabapentin 400 mg capsule 400 mg PO TID PRN NEUROPATHY 10/03/20 12/02/23 History aripiprazole 10 mg tablet 10 mg PO DAILY DEPRESSION 10/25/23 12/02/23 History lorazepam 0.5 mg tablet 0.5 mg PO DAILY PRN ANXIETY #7 01/26/24 Unknown Rx tabs mesalamine 1.2 gram tablet,delayed 2.4 g (2 x 1.2 gram) PO DAILY 30 02/09/24 Unknown Rx release days #60 tabs trazodone 50 mg tablet 50 mg PO QHS 02/23/24 Unknown History hyoscyamine sulfate 0.125 mg 0.125 mg PO Q6H PRN abdominal 02/24/24 Unknown Rx disintegrating tablet discomfort #10 tabs diphenhydramine HCl 25 mg capsule 25 mg PO QHS 05/25/24 Unknown History (Allergy (diphenhydramine)) escitalopram oxalate 20 mg tablet 20 mg PO DAILY 05/25/24 Unknown History pantoprazole 40 mg tablet,delayed 40 mg PO DAILY 05/25/24 Unknown History release promethazine 25 mg tablet 25 mg PO Q8H PRN PRN 05/25/24 Unknown History nausea/vomiting Allergy/AdvReac Type Severity Reaction Status Date / Time Iodinated Contrast Media (CT) Allergy Anaphylaxis Verified 05/28/24 19:01 ketorolac tromethamine (From Allergy Rash Verified 05/28/24 19:01 Toradol) metronidazole (From Flagyl) Allergy Hives Verified 05/28/24 19:01 Penicillins Allergy Hives Verified 05/27/24 13:33 dicyclomine (From Bentyl) AdvReac Mild Hives Verified 05/28/24 19:01 aspirin AdvReac Upset Verified 05/28/24 19:01 Stomach Family History Aunt Breast cancer Grandfather CAD (coronary artery disease) Father Heart disease, Onset Age: 73 Triple bypass Mother Heart disease, Onset Age: 62 Other Diabetes Surgical History Hx of tooth extraction History of cholecystectomy H/O ovarian cystectomy (09/2019) History of bilateral oophorectomy History of hysterectomy History of tubal ligation Social History household members: none Smoking Status: Current every day smoker tobacco type: cigarettes Tobacco: How many years used: 15 alcohol intake: current substance use type: does not use ROS <SVETA Stout - Last Filed: 05/28/24 20:33> [facility] ED ROS Narrative Constitutional: Negative for fever, chills, weight loss, weakness Eyes: Negative for vision loss, vision change, double vision ENT: Negative for any sore throat, ear pain, congestion Cardiovascular: Negative for any chest pain, tightness, palpitations Respiratory: Negative for any cough, sputum production, hemoptysis, dyspnea, dyspnea on exertion, orthopnea Gastrointestinal: Negative for any vomiting, diarrhea, constipation, blood in stool, blood in vomit. Positive for abdominal, nausea : Negative for any urinary frequency, dysuria, retention, blood in urine Muscle skeletal: Negative for any neck pain, back pain Neurological: Negative for any headache, syncope, dizziness Skin: Negative for any rashes, itching, abrasions, lacerations Psychiatric: Negative for any depression, stress, suicidal ideation, homicidal ideation. Positive for anxiety Hematologic: Negative for any excessive bruising, easy bleeding EXAM <SVETA Stout - Last Filed: 05/28/24 20:33> Physical Exam Narrative Exam Narrative: Vital signs reviewed. Patient appears anxious however patient is nontoxic-appearing, vital signs are stable. HEET: Head normocephalic atraumatic, TMs clear bilaterally. Posterior pharynx is clear, moist mucous membranes. Nares clear bilaterally. Neck: Supple with no lymphadenopathy or tenderness. No signs of meningismus. Cardiac: Regular rate and rhythm no murmurs gallops or rubs, equal peripheral pulses bilaterally. Respiratory: Lungs clear to auscultation bilaterally. No chest tenderness. Abdomen: Soft, nondistended. No abdominal bruit or pulsatile masses. No hepatosplenomegaly. No peritoneal signs, patient slight discomfort to her upper abdomen however pain is slightly out of proportion. Extremities: No peripheral edema, no signs of gross trauma or deformity. Active full range of motion of all extremities. Neuro: Cranial nerves II through XII intact, no focal neurological deficits. Skin: Clean dry and intact with no rash, purpura, petechiae, vesicles or pustules. Backs/flank: No CVA tenderness, no midline spinal tenderness, no deformity. Psych: Normal mood and affect. No SI, HI or acute psychosis. Const Vital Signs: 05/28/24 18:58 Temperature 97.2 F L Temperature Source Oral Pulse Rate 76 Respiratory Rate 16 Blood Pressure 123/75 H Blood Pressure Mean 91 Pulse Ox 97 Oxygen Delivery Method Room Air Positive well nourished and well developed General Appearance ED: well developed <Dr. Tristen Adams MD - Last Filed: 05/28/24 20:34> Physical Exam Const Vital Signs: 05/28/24 18:58 Temperature 97.2 F L Temperature Source Oral Pulse Rate 76 Respiratory Rate 16 Blood Pressure 123/75 H Blood Pressure Mean 91 Pulse Ox 97 Oxygen Delivery Method Room Air MDM <SVETA Stout - Last Filed: 05/28/24 20:33> MDM Lab Data Labs: Laboratory Results - last 24 hr 05/28/24 05/28/24 19:29 19:40 WBC 8.0 RBC 4.14 L Hgb 12.5 Hct 37.7 MCV 91.1 MCH 30.2 MCHC 33.2 RDW Std Deviation 41.5 RDW Coeff of Shun 12.5 Plt Count 226 MPV 10.5 Immature Gran % (Auto) 0.300 Neut % (Auto) 48.5 Lymph % (Auto) 41.3 H P[place] % (Auto) 7.2 Eos % (Auto) 2.3 Baso % (Auto) 0.4 Absolute Neuts (auto) 3.9 Absolute Lymphs (auto) 3.28 Nucleated RBC % 0 Sodium 139 Potassium 3.4 L Chloride 106 Carbon Dioxide 25.0 Anion Gap 8 BUN 10 Creatinine 1.07 H Estim Creat Clear Calc 69.82 Est GFR (MDRD) Af Amer 71 Est GFR (MDRD) Non-Af 59 L BUN/Creatinine Ratio 9.3 L Glucose 117 H Lactic Acid 0.6 Calcium 9.2 Total Bilirubin 0.60 AST 15 ALT 27 Alkaline Phosphatase 116 Total Protein 7.5 Albumin 3.8 Globulin 3.7 Albumin/Globulin Ratio 1.0 Amylase 29 Lipase 54 Urine Color Yellow Urine Clarity Clear Urine pH 6.0 Ur Specific Roosevelt 1.015 Urine Protein Negative Urine Glucose (UA) Normal Urine Ketones Negative Urine Occult Blood 10 H Urine Nitrite Negative Urine Bilirubin Negative Urine Urobilinogen Normal Ur Leukocyte Esterase Negative Urine RBC 0-5 SEEN Urine WBC 0 SEEN Ur Squamous Epith Cells 0-5 SEEN Urine Bacteria 0 SEEN Urine Mucus 0 SEEN Radiography Diagnostic Testing: Clinical Impression(s) from Imaging Studies Abdomen/Pelvis CT 05/28/24 19:26 IMPRESSION: 1. Multiple nonobstructive left renal calyceal stones are present. No right-sided urolithiasis and no evidence of hydronephrosis. 2. No evidence of acute pathology. Electronically Signed: Jeo Zimmerman DO at 20:05 EDT , Treatment and Re-Evaluation :: Differential diagnosis includes however is not limited to: Acute pancreatitis, bowel obstruction, bowel perforation, free air in the abdominal cavity, GI virus, anxiety Patient appears to be in no obvious distress vital signs are stable, patient is nontoxic-appearing. Presenting to the emergency department complaints of abdominal pain post EGD and colonoscopy. I spoke with Dr. Harris, he is concerned about pancreatitis, amylase lipase will be ordered, other laboratory will be drawn, patient received a CT scan without contrast secondary to allergy. Patient received IV fluids, Zofran and morphine. Patient will be reevaluated. All radiologic examinations were read, reviewed by the emergency department attending. From these reads, a plan of care will be put in place. Patient's laboratory values are normal CBC, patient's CMP with creatinine 1.07, this is baseline. Lactic acid is negative. Patient's lipase is -54, amylase is 29 this is negative. Patient CT scan of the abdomen pelvis shows multiple nonobstructive left renal stones, no right-sided urolithiasis, no evidence of any hydronephrosis. No evidence of any acute pathology. At this time, patient be discharged home. She instructed continue following up with Dr. Harris. All questions answered, stable for discharge. <Dr. Tristen Adams MD - Last Filed: 05/28/24 20:34> [facility] MDM Narrative Medical decision making narrative: I have personally performed a face to face assessment of the patient and have reviewed the [facility] Note. I performed a substantive portion of the visit including all aspects of the following. My guzman findings include: History is sharp left-sided abdominal pain since colonoscopy yesterday. Vomiting today. Passing diarrhea still. No fevers or chills. Exam is subjective tenderness throughout left side of abdomen. No rebound tenderness. Well-appearing. Medical Decison Making CT obtained I reviewed the images and report which I agree with, it is negative for perforation or any other acute inflammatory disorder or obstruction. Patient has care plan, we gave her fluids and Zofran. She tolerating oral fluids stable for discharge home. Close a patient follow-up. Other additions or changes: [None] Lab Data Labs: Laboratory Results - last 24 hr 05/28/24 05/28/24 19:29 19:40 WBC 8.0 RBC 4.14 L Hgb 12.5 Hct 37.7 MCV 91.1 MCH 30.2 MCHC 33.2 RDW Std Deviation 41.5 RDW Coeff of Shun 12.5 Plt Count 226 MPV 10.5 Immature Gran % (Auto) 0.300 Neut % (Auto) 48.5 Lymph % (Auto) 41.3 H [place] % (Auto) 7.2 Eos % (Auto) 2.3 Baso % (Auto) 0.4 Absolute Neuts (auto) 3.9 Absolute Lymphs (auto) 3.28 Nucleated RBC % 0 Sodium 139 Potassium 3.4 L Chloride 106 Carbon Dioxide 25.0 Anion Gap 8 BUN 10 Creatinine 1.07 H Estim Creat Clear Calc 69.82 Est GFR (MDRD) Af Amer 71 Est GFR (MDRD) Non-Af 59 L BUN/Creatinine Ratio 9.3 L Glucose 117 H Lactic Acid 0.6 Calcium 9.2 Total Bilirubin 0.60 AST 15 ALT 27 Alkaline Phosphatase 116 Total Protein 7.5 Albumin 3.8 Globulin 3.7 Albumin/Globulin Ratio 1.0 Amylase 29 Lipase 54 Urine Color Yellow Urine Clarity Clear Urine pH 6.0 Ur Specific [place] 1.015 Urine Protein Negative Urine Glucose (UA) Normal Urine Ketones Negative Urine Occult Blood 10 H Urine Nitrite Negative Urine Bilirubin Negative Urine Urobilinogen Normal Ur Leukocyte Esterase Negative Urine RBC 0-5 SEEN Urine WBC 0 SEEN Ur Squamous Epith Cells 0-5 SEEN Urine Bacteria 0 SEEN Urine Mucus 0 SEEN Radiography Diagnostic Testing: Clinical Impression(s) from Imaging Studies Abdomen/Pelvis CT 05/28/24 19:26 IMPRESSION: 1. Multiple nonobstructive left renal calyceal stones are present. No right-sided urolithiasis and no evidence of hydronephrosis. 2. No evidence of acute pathology. Electronically Signed: Joe Zimmerman DO at 20:05 EDT , Management Discussion w/another healthcare provider: Cath Lab Tech (friend gi) Discharge Plan Triage Chief Complaint: Abd Pain ED Midlevel Provider: Carson Ramos ED Provider: Tristen Adams Dx/Rx/DC Orders Clinical Impression: Abdominal pain Instructions: Abdominal Pain Prescriptions: No Action trazodone 50 mg tablet 50 mg PO QHS gabapentin 400 MG capsule 400 mg PO TID PRN (Reason: NEUROPATHY ) Patient Comments: PT STATES THEIR DOCTOR RECENTLY UPPED THE DOSE THAT CAN BE TAKEN aripiprazole 10 mg tablet 10 mg PO DAILY diphenhydramine HCl [Allergy (diphenhydramine)] 25 mg capsule 25 mg PO QHS pantoprazole 40 mg tablet,delayed release (DR/EC) 40 mg PO DAILY promethazine 25 mg tablet 25 mg PO Q8H PRN PRN (Reason: nausea/vomiting) escitalopram oxalate 20 mg tablet 20 mg PO DAILY hyoscyamine sulfate 0.125 mg tablet,disintegrating 0.125 mg PO Q6H PRN (Reason: abdominal discomfort) Qty: 10 0RF lorazepam 0.5 mg tablet 0.5 mg PO DAILY PRN (Reason: ANXIETY ) Qty: 7 0RF mesalamine 1.2 gram tablet,delayed release (DR/EC) 2.4 g PO DAILY 30 Days Qty: 60 1RF Primary Care Provider: Michell Baca Referrals: Michell Baca MD [Primary Care Provider] - Activity Restrictions/Additional Instructions: You had a normal laboratory values, your lipase and amylase were normal. CT scan of the abdomen pelvis shows no acute process. Print Language: Romansh Disposition Disposition: Home, Self Care
[2024-05-28 19:50] LABS: Color, Urine Yellow (Yellow); Glucose, Dipstick Normal (Normal); Ketone-Dipstick Negative (Negative); Leukocyte Esterase-Dipstick Negative /ul (Negative); Nitrite-Dipstick Negative (Negative); Occult Blood-Urine 10 /ul (Negative); Protein-Dipstick Negative (Negative); Specific Gravity, Urine 1.015 (1.002-1.030); Urine Bilirubin Dipstick Negative (Negative); Urine Clarity Clear (Clear); Urine Urobilinogen Normal (Normal)
[2024-05-28 19:56] LABS: AST(SGOT) 15 U/L (15-37); Alanine Aminotransfer ALT/SGPT 27 U/L (13-56); Albumin, Serum 3.8 g/dL (3.2-5.0); Alkaline Phosphatase 116 U/L (45-117); Amylase 29 U/L (25-115); Anion Gap 8 (5-15); BUN 10 mg/dL (7-18); BUN/Creat Ratio 9.3 RATIO (10-20); Calcium,Total 9.2 mg/dL (8.5-10.1); Chloride 106 mmol/L (98-107); Creatinine, Serum 1.07 mg/dL (0.55-1.02); EST Glomerular Filtration Rate 59 mL/min (>60); Est Glom Filt Rate - Afr Amer 71 mL/min (>60); Estimated Creatinine Clearance 69.82 ml/min; Globulin 3.7 g/dL (2.2-4.2); Glucose 117 mg/dL (74-106); Lipase 54 U/L (13-75); Potassium 3.4 mmol/L (3.5-5.1); Protein, Total 7.5 g/dL (6.4-8.2); Sodium Level 139 mmol/L (136-145)
[2024-05-28 19:58] LABS: Lactic Acid 0.6 mmol/L (0.4-1.9)
[2024-05-28 20:00] LABS: Red Blood Cells-Urine 0-5 SEEN /hpf (0-5); Squamous Epithelial Cells - UA 0-5 SEEN /hpf (5-10)
[2024-05-28 20:44] VITALS: BP 119/72; PULSE 71; RESP 16; TEMP 36.2; O2SAT 97
== END 2024-05-28 20:45 | disposition home or self-care (01) ==
PROVIDERS: Nurse Practitioner; Emergency Provider Emergency Medicine; PCP Internal Medicine; Visit Provider Emergency Medicine
DX: R10.9 Unspecified abdominal pain (principal); F41.9 Anxiety disorder, unspecified; E78.5 Hyperlipidemia, unspecified; F17.210 Nicotine dependence, cigarettes, uncomplicated; F32.A Depression, unspecified; K21.9 Gastro-esophageal reflux disease without esophagitis; Z79.899 Other long term (current) drug therapy; Z90.49 Acquired absence of other specified parts of digestive tract; Z90.6 Acquired absence of other parts of urinary tract; Z90.722 Acquired absence of ovaries, bilateral; Z90.710 Acquired absence of both cervix and uterus; Z98.51 Tubal ligation status; F17.290 Nicotine dependence, other tobacco product, uncomplicated
CPT/HCPCS: 74176; 80053; 81001; 82150; 83605; 83690; 85025; 96361; 96374; 96375; 99283; J7030; J7040; J2405

== ENCOUNTER 2024-06-13 15:04 | Emergency (ER) | payer MEDICAID, SELFPAY ==
[2024-06-13 15:05] VITALS: BP 123/78; PULSE 80; RESP 16; TEMP 36.1; O2SAT 98; BMI 36.6
[2024-06-13 17:05] VITALS: BP 122/77; PULSE 74; RESP 16; O2SAT 99
--- NOTE | 2024-06-13 18:16 | EDS_ITS ---
HPI History of Present Illness Chief Complaint: Abd Pain Narrative Narrative: Chief complaint and HPI: Abdominal pain. 43-year-old female presents for evaluation of abdominal pain. Patient has a history of chronic pancreatitis. Follows with Dr. Harris. Patient states her epigastric abdominal pain started 2 days ago and has progressively worsened. She states it feels like her previous pancreatitis. She was just seen in our emergency department earlier this month for similar symptoms. Patient endorses nausea and vomiting. She states she had decreased urination yesterday. Decreased p.o. intake. She denies any fever, chills, chest pain, shortness of breath, URI symptoms, diarrhea, constipation, dysuria, hematuria. Patient has had a total hysterectomy. Review of systems: See HPI Medications: As listed on the chart Allergies: As listed on the chart PFSH: Per chart Vital signs: As listed on the chart. Reviewed. Physical exam: Gen: A&O x3, NAD Head: Normocephalic, atraumatic Eyes: No sclera icterus, conjunctiva clear ENT: Moist mucous membranes Neck: Trachea midline, No JVD CV: RRR, no murmurs, no peripheral edema Resp: Lungs CTA BL, no w/r/c GI: Abd soft, non-distended, tender to palpation in the epigastrium, no rebound or rigidity : No CVA tenderness Musc: Full ROM, no deformity Skin: Warm, dry Neuro: Alert, oriented, grossly intact, sensation intact Psych: Cooperative, appropriate mood and affect [facility] Medical History Cancer Depression Rheumatoid arthritis Arthritis Back pain Difficulty chewing Gastric reflux Chronic cough History of Holter monitoring History of stress test Cardiology follow-up encounter Anxiety Kidney stones Smoker Abdominal pain Intractable nausea and vomiting History of pancreatitis Pancreatitis Bipolar disorder Lung nodule Migraine Chronic pain Ovarian cyst Obesity Incomplete right bundle branch block Hyperlipidemia History of uterine cancer (2006) Right tubo-ovarian mass Ureteral stone with hydronephrosis History of renal calculi Home Medications ?Medication ?Instructions ?Recorded ?Last Taken ?Type gabapentin 400 mg capsule 400 mg PO TID PRN NEUROPATHY 10/03/20 12/02/23 History aripiprazole 10 mg tablet 10 mg PO DAILY DEPRESSION 10/25/23 12/02/23 History lorazepam 0.5 mg tablet 0.5 mg PO DAILY PRN ANXIETY #7 01/26/24 Unknown Rx tabs mesalamine 1.2 gram tablet,delayed 2.4 g (2 x 1.2 gram) PO DAILY 30 02/09/24 Unknown Rx release days #60 tabs trazodone 50 mg tablet 50 mg PO QHS 02/23/24 Unknown History hyoscyamine sulfate 0.125 mg 0.125 mg PO Q6H PRN abdominal 02/24/24 Unknown Rx disintegrating tablet discomfort #10 tabs diphenhydramine HCl 25 mg capsule 25 mg PO QHS 05/25/24 Unknown History (Allergy (diphenhydramine)) escitalopram oxalate 20 mg tablet 20 mg PO DAILY 05/25/24 Unknown History pantoprazole 40 mg tablet,delayed 40 mg PO DAILY 05/25/24 Unknown History release promethazine 25 mg tablet 25 mg PO Q8H PRN PRN 05/25/24 Unknown History nausea/vomiting ciprofloxacin HCl 500 mg tablet 500 mg PO BID 5 days #10 TABLETS 06/13/24 Unknown Rx Allergy/AdvReac Type Severity Reaction Status Date / Time Iodinated Contrast Media (CT) Allergy Anaphylaxis Verified 06/13/24 15:07 ketorolac tromethamine (From Allergy Rash Verified 06/13/24 15:07 Toradol) metronidazole (From Flagyl) Allergy Hives Verified 06/13/24 15:07 Penicillins Allergy Hives Verified 06/13/24 15:07 dicyclomine (From Bentyl) AdvReac Mild Hives Verified 06/13/24 15:07 aspirin AdvReac Upset Verified 06/13/24 15:07 Stomach Family History Aunt Breast cancer Grandfather CAD (coronary artery disease) Father Heart disease, Onset Age: 73 Triple bypass Mother Heart disease, Onset Age: 62 Other Diabetes Surgical History Hx of tooth extraction History of cholecystectomy H/O ovarian cystectomy (09/2019) History of bilateral oophorectomy History of hysterectomy History of tubal ligation Social History household members: none Smoking Status: Current every day smoker tobacco type: cigarettes Tobacco: How many years used: 15 alcohol intake: current substance use type: does not use EXAM Physical Exam Const Vital Signs: 06/13/24 15:05 06/13/24 17:05 06/13/24 19:00 Temperature 96.9 F L Temperature Source Temporal Pulse Rate 80 74 61 Respiratory Rate 16 16 16 Blood Pressure 123/78 H 122/77 H 115/74 Blood Pressure Mean 93 92 87 Pulse Ox 98 99 96 Oxygen Delivery Method Room Air Room Air 06/13/24 21:00 Temperature Temperature Source Pulse Rate 84 Respiratory Rate 16 Blood Pressure 130/86 H Blood Pressure Mean 100 Pulse Ox 98 Oxygen Delivery Method Room Air MDM MDM MDM Narrative Medical decision making narrative: 43-year-old female with history of chronic pancreatitis presents for evaluation of epigastric abdominal pain. Patient has been seen multiple times in the emergency department for similar symptoms. On chart review patient had a CT abdomen pelvis on 05/28 showed multiple nonobstructive left renal calculi stones. Colonoscopy on 05/27/2024 showed congested mucosa in the sigmoid colon as well as descending colon and transverse colon. EGD on the same day showed esophagitis, erosive gastropathy with stigmata of recent bleeding, and duodenal erosions. Differential diagnosis includes but is not limited to gastritis, pancreatitis, GERD, viral illness, UTI. NS bolus, Dilaudid, Zofran ordered for symptoms. Given patient's significant tenderness on physical exam will obtain CT abdomen pelvis. Patient has a contrast allergy therefore Benadryl and Solu- Medrol ordered. CBC without leukocytosis. CMP shows baseline renal insufficiency. No transaminitis. Lipase unremarkable. Patient has baseline mild elevation of her alk phos. UA is questionable for UTI given blood, leuk esterases, bacteria. This is a dirty sample of 25-50 squamous epithelial. However given patient's difficulty urinating the past day will treat for UTI. Patient has penicillin allergy therefore will place on 5 days of Bactrim. Urine culture sent. CT abdomen pelvis again shows multiple nonobstructing left renal calculi stones. No ureteral stone or hydronephrosis. Pancreas unremarkable. No intra or extrahepatic biliary duct dilation. On reexamination, patient's pain is improved. Unknown etiology for patient's epigastric pain at this time. May be gastritis. Patient was educated to follow-up with her PCP for UTI. She was educated to follow-up with Dr. Harris for her epigastric pain. She confirmed understanding of plan. Return precautions explained. Impression: 1. Epigastric abdominal pain, suspect gastritis 2. UTI 3. Renal insufficiency Lab Data Labs: Laboratory Results - last 24 hr 06/13/24 19:05 WBC 8.2 RBC 4.17 L Hgb 12.3 Hct 38.2 MCV 91.6 MCH 29.5 MCHC 32.2 RDW Std Deviation 41.4 RDW Coeff of Shun 12.3 Plt Count 234 MPV 10.1 Immature Gran % (Auto) 1.200 H Neut % (Auto) 58.8 Lymph % (Auto) 31.6 [place] % (Auto) 5.2 Eos % (Auto) 2.7 Baso % (Auto) 0.5 Absolute Neuts (auto) 4.8 Absolute Lymphs (auto) 2.60 Nucleated RBC % 0 Sodium 137 Potassium 3.7 Chloride 104 Carbon Dioxide 28.0 Anion Gap 5 BUN 13 Creatinine 1.15 H Estim Creat Clear Calc 62.95 Est GFR (MDRD) Af Amer 66 Est GFR (MDRD) Non-Af 54 L BUN/Creatinine Ratio 11.3 Glucose 104 Calcium 9.0 Total Bilirubin 0.60 AST 16 ALT 23 Alkaline Phosphatase 119 H Total Protein 7.4 Albumin 3.6 Globulin 3.8 Albumin/Globulin Ratio 0.9 Lipase 32 Urine Color Yellow Urine Clarity Cloudy Urine pH 6.0 Ur Specific [place] 1.025 Urine Protein 30 H Urine Glucose (UA) Normal Urine Ketones Negative Urine Occult Blood 10 H Urine Nitrite Negative Urine Bilirubin Negative Urine Urobilinogen 1 H Ur Leukocyte Esterase 25 H Urine RBC 0-5 SEEN Urine WBC 0-5 SEEN Ur Squamous Epith Cells 25-50 SEEN Calcium Oxalate Crystal RARE Urine Bacteria 3+ Urine Mucus 3+ Radiography Diagnostic Testing: Clinical Impression(s) from Imaging Studies Abdomen/Pelvis CT 06/13/24 18:49 IMPRESSION: Multiple nonobstructing left renal calyceal stones are present, the largest measuring 2 to 3 mm. No definitive ureteral stone and no hydronephrosis. Calcification in the pelvis near the left ureterovesicular junction is unchanged and is likely a phlebolith. No additional acute findings. Electronically Signed: Joe Zimmerman DO at 21:06 EDT , Discharge Plan Triage Chief Complaint: Abd Pain ED Provider: Leonardo Farr Dx/Rx/DC Orders Clinical Impression: UTI (urinary tract infection) Instructions: ED Cystitis Female Adult Prescriptions: New ciprofloxacin HCl 500 mg tablet 500 mg PO BID 5 Days Qty: 10 0RF No Action trazodone 50 mg tablet 50 mg PO QHS gabapentin 400 MG capsule 400 mg PO TID PRN (Reason: NEUROPATHY ) Patient Comments: PT STATES THEIR DOCTOR RECENTLY UPPED THE DOSE THAT CAN BE TAKEN aripiprazole 10 mg tablet 10 mg PO DAILY diphenhydramine HCl [Allergy (diphenhydramine)] 25 mg capsule 25 mg PO QHS pantoprazole 40 mg tablet,delayed release (DR/EC) 40 mg PO DAILY promethazine 25 mg tablet 25 mg PO Q8H PRN PRN (Reason: nausea/vomiting) escitalopram oxalate 20 mg tablet 20 mg PO DAILY hyoscyamine sulfate 0.125 mg tablet,disintegrating 0.125 mg PO Q6H PRN (Reason: abdominal discomfort) Qty: 10 0RF lorazepam 0.5 mg tablet 0.5 mg PO DAILY PRN (Reason: ANXIETY ) Qty: 7 0RF mesalamine 1.2 gram tablet,delayed release (DR/EC) 2.4 g PO DAILY 30 Days Qty: 60 1RF Primary Care Provider: Michell Baca Referrals: Michell Baca MD [Primary Care Provider] - 3-5 Days Print Language: Congolese Disposition Disposition: Home, Self Care Discharge Date/Time: 06/13/24 21:53
--- NOTE | 2024-06-13 18:49 | CT_ITS ---
EXAM: CT ABDOMEN AND PELVIS WITH INTRAVENOUS CONTRAST CLINICAL INDICATION: Abdominal pain TECHNIQUE: Helically acquired images were obtained of the abdomen and pelvis with intravenous contrast. This CT exam was performed using one or more of the following dose reduction techniques: automated exposure control, adjustment of the mA and/or kV according to patient size, and/or use of iterative reconstruction technique. CONTRAST: IV 100mL Isovue-370 COMPARISON: 05/28/2024 FINDINGS: LIMITATIONS: Examination is limited due to motion related artifacts. LOWER THORAX: No significant abnormality. Lung bases are clear. No cardiomegaly. No significant pericardial effusion. ABDOMEN: LIVER: There are multiple hepatic cysts for which no follow-up is indicated. GALLBLADDER AND BILE DUCTS: Status post cholecystectomy. No intra- or extrahepatic biliary ductal dilation. PANCREAS: No significant abnormality. No focal cystic or solid mass. SPLEEN: No significant abnormality. Normal size without focal cystic or solid mass. ADRENALS: No significant abnormality. No nodules. KIDNEYS AND URETERS: Multiple nonobstructing left renal calyceal stones are present, the largest measuring 2 to 3 mm. No definitive ureteral stone and no hydronephrosis. Normal renal size and position. STOMACH AND BOWEL: No significant abnormality. No stomach or bowel distention. No focal inflammatory change. PELVIS: APPENDIX: Normal appendix is identified in the right lower quadrant. BLADDER: No significant abnormality. REPRODUCTIVE: Normal as visualized. No mass. ABDOMEN and PELVIS: INTRAPERITONEAL SPACE: No significant abnormality. No ascites or other fluid collection. No free air. BONES/JOINTS: Degenerative changes in the spine and hips. No suspicious lytic or blastic abnormality. SOFT TISSUES: Small fat-containing periumbilical hernia. VASCULATURE: No significant abnormality. Abdominal aorta is non-dilated. LYMPH NODES: No significant abnormality. No enlarged lymph nodes. CT/Abdomen/Pelvis W IV Cont ONLY IMPRESSION: Multiple nonobstructing left renal calyceal stones are present, the largest measuring 2 to 3 mm. No definitive ureteral stone and no hydronephrosis. Calcification in the pelvis near the left ureterovesicular junction is unchanged and is likely a phlebolith. No additional acute findings. Electronically Signed: Joe Zimmerman DO at 21:06 EDT ,
[2024-06-13 19:00] VITALS: BP 115/74; PULSE 61; RESP 16; O2SAT 96
[2024-06-13 19:16] LABS: Absolute Neutrophil Count 4.8 X10^3/uL (2.0-7.7); Basophil# 0.04 X10^3/uL; Basophil% 0.5 % (0-1); Eosinophil# 0.22 X10^3/uL; Eosinophils% 2.7 % (0-5); Hematocrit 38.2 % (37-47); Hemoglobin 12.3 g/dL (12.0-15.0); Lymphocyte % 31.6 % (19-41); Mean Corp Hgb Conc 32.2 g/dL (32-36); Mean Corpuscular Hgb 29.5 pg (27.0-32.0); Mean Corpuscular Volume 91.6 fL (81-99); Mean Platelet Vol. 10.1 fl (6.2-12.0); Monocyte# 0.43 X10^3/uL; Monocyte% 5.2 % (0-10); NRBC Flagged by Analyzer 0 % (0-5); Neutrophil # 4.83 X10^3/uL (2.7-7.7); Neutrophil % 58.8 % (47-70); Platelet Count 234 K/mm3 (150-450); RBC Distribution Width CV 12.3 % (11.6-14.6); RBC Distribution Width SD 41.4 fl (35.1-43.9); Red Blood Count 4.17 M/mm3 (4.2-5.4); White Blood Count 8.2 K/mm3 (4.4-11.0)
[2024-06-13 19:18] LABS: Color, Urine Yellow (Yellow); Glucose, Dipstick Normal (Normal); Ketone-Dipstick Negative (Negative); Leukocyte Esterase-Dipstick 25 /ul (Negative); Nitrite-Dipstick Negative (Negative); Occult Blood-Urine 10 /ul (Negative); Protein-Dipstick 30 mg/dl (Negative); Specific Gravity, Urine 1.025 (1.002-1.030); Urine Bilirubin Dipstick Negative (Negative); Urine Clarity Cloudy (Clear); Urine Urobilinogen 1 mg/dl (Normal)
[2024-06-13] MEDS: Ondansetron 4 MG/2 ML Vial IV (19:20)
[2024-06-13] MEDS: 0.9% Normal Saline (1000mL) 1,000 ML 999 ML IV (19:20)
[2024-06-13] MEDS: DiphenhydrAMINE 50 MG/ML Syringe 25 MG IV (19:20)
[2024-06-13] MEDS: MethylPREDNISolone 125 MG/2 ML Vial IV (19:20)
[2024-06-13] MEDS: HYDROmorphone 0.5 MG/0.5 ML SYRINGE IV (19:21)
[2024-06-13 19:37] LABS: ALB/GLOB Ratio 0.9 RATIO (0.9-2.4); AST(SGOT) 16 U/L (15-37); Alanine Aminotransfer ALT/SGPT 23 U/L (13-56); Albumin, Serum 3.6 g/dL (3.2-5.0); Alkaline Phosphatase 119 U/L (45-117); Anion Gap 5 (5-15); BUN 13 mg/dL (7-18); BUN/Creat Ratio 11.3 RATIO (10-20); Chloride 104 mmol/L (98-107); Creatinine, Serum 1.15 mg/dL (0.55-1.02); EST Glomerular Filtration Rate 54 mL/min (>60); Est Glom Filt Rate - Afr Amer 66 mL/min (>60); Estimated Creatinine Clearance 62.95 ml/min; Globulin 3.8 g/dL (2.2-4.2); Glucose 104 mg/dL (74-106); Lipase 32 U/L (13-75); Potassium 3.7 mmol/L (3.5-5.1); Protein, Total 7.4 g/dL (6.4-8.2); Sodium Level 137 mmol/L (136-145)
[2024-06-13 19:46] LABS: Bacteria 3+ /hpf (None Seen); Calcium Oxalate Crystals Ur RARE /hpf (<or=2+); Mucous, Urine 3+ /hpf (<or=2+); Red Blood Cells-Urine 0-5 SEEN /hpf (0-5); Squamous Epithelial Cells - UA 25-50 SEEN /hpf (5-10); White Blood Cells 0-5 SEEN /hpf (0-5)
[2024-06-13 21:00] VITALS: BP 130/86; PULSE 84; RESP 16; O2SAT 98
== END 2024-06-13 21:53 | disposition home or self-care (01) ==
PROVIDERS: Emergency Provider Surgery; PCP Internal Medicine; Visit Provider Surgery
DX: R10.13 Epigastric pain (principal); F17.210 Nicotine dependence, cigarettes, uncomplicated; N39.0 Urinary tract infection, site not specified; N28.9 Disorder of kidney and ureter, unspecified; E78.5 Hyperlipidemia, unspecified; K21.00 Gastro-esophageal reflux disease with esophagitis, without bleeding; Z87.442 Personal history of urinary calculi
CPT/HCPCS: 74177; 80053; 81001; 83690; 85025; 87086; 87088; 96361; 96374; 96375; 99283; J7030; Q9967; A4216; J2405

== ENCOUNTER 2024-08-21 10:00 | Emergency (ER) | payer MEDICAID, SELFPAY ==
[2024-08-21 10:00] VITALS: BP 137/77; PULSE 94; RESP 16; TEMP 36.1; O2SAT 99; BMI 37.8
--- NOTE | 2024-08-21 10:23 | RAD_ITS ---
HISTORY: pain. TECHNIQUE: XR Spine Lumbar 2 or 3 Views. COMPARISON: 05/01/2017. FINDINGS: VERTEBRAE: Vertebral body heights preserved. Posterior elements appear intact. ALIGNMENT: No significant anterior or posterior subluxation. Minimal dextrocurvature. INTERVERTEBRAL DISCS: Disc spaces maintained. SOFT TISSUES: Right upper quadrant surgical clips. RAD/Lumbar Spine 2 or 3 Views IMPRESSION: No acute fracture or dislocation identified in the lumbar spine. Electronically Signed: Jadyn Neff MD at 11:37 EST ,
--- NOTE | 2024-08-21 10:25 | ED.VIS.BACK ---
HPI History of Present Illness Chief Complaint: Back Informant: patient Narrative Narrative: 43-year-old female with recurrent ED visits presenting to the emergency room with acute on chronic back pain. Patient states that she saw her primary care doctor a month ago and they mentioned that she has been having back pain. She states that she has sciatica. She is taking low-dose Flexeril. She states she is also on gabapentin but not specifically for the back. The patient states that she is supposed to see her doctor in about 10 days for the back. 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 She states today is more painful with movement. She denies any muscular weakness/foot drop. She notes the right side radiates to her lower leg but that has been an ongoing issue. No bowel or bladder dysfunction. No fever. No known active/treated malignancy or immunosuppression. She denies any rashes. [facility] Medical History Cancer Depression Rheumatoid arthritis Arthritis Back pain Difficulty chewing Gastric reflux Chronic cough History of Holter monitoring History of stress test Cardiology follow-up encounter Anxiety Kidney stones Smoker Abdominal pain Intractable nausea and vomiting History of pancreatitis Pancreatitis Bipolar disorder Lung nodule Migraine Chronic pain Ovarian cyst Obesity Incomplete right bundle branch block Hyperlipidemia History of uterine cancer (2006) Right tubo-ovarian mass Ureteral stone with hydronephrosis History of renal calculi Home Medications ?Medication ?Instructions ?Recorded ?Last Taken ?Type gabapentin 400 mg capsule 400 mg PO TID PRN NEUROPATHY 10/03/20 12/02/23 History aripiprazole 10 mg tablet 10 mg PO DAILY DEPRESSION 10/25/23 12/02/23 History lorazepam 0.5 mg tablet 0.5 mg PO DAILY PRN ANXIETY #7 01/26/24 Unknown Rx tabs mesalamine 1.2 gram tablet,delayed 2.4 g (2 x 1.2 gram) PO DAILY 30 02/09/24 Unknown Rx release days #60 tabs trazodone 50 mg tablet 50 mg PO QHS 02/23/24 Unknown History hyoscyamine sulfate 0.125 mg 0.125 mg PO Q6H PRN abdominal 02/24/24 Unknown Rx disintegrating tablet discomfort #10 tabs diphenhydramine HCl 25 mg capsule 25 mg PO QHS 05/25/24 Unknown History (Allergy (diphenhydramine)) escitalopram oxalate 20 mg tablet 20 mg PO DAILY 05/25/24 Unknown History pantoprazole 40 mg tablet,delayed 40 mg PO DAILY 05/25/24 Unknown History release promethazine 25 mg tablet 25 mg PO Q8H PRN PRN 05/25/24 Unknown History nausea/vomiting ciprofloxacin HCl 500 mg tablet 500 mg PO BID 5 days #10 TABLETS 06/13/24 Unknown Rx cyclobenzaprine 10 mg tablet 10 mg PO TID PRN Muscle Spasm #15 08/21/24 Unknown Rx TABLETS Allergy/AdvReac Type Severity Reaction Status Date / Time Iodinated Contrast Media (CT) Allergy Anaphylaxis Verified 08/21/24 10:02 ketorolac tromethamine (From Allergy Rash Verified 08/21/24 10:02 Toradol) metronidazole (From Flagyl) Allergy Hives Verified 08/21/24 10:02 Penicillins Allergy Hives Verified 08/21/24 10:02 dicyclomine (From Bentyl) AdvReac Mild Hives Verified 08/21/24 10:02 aspirin AdvReac Upset Verified 08/21/24 10:02 Stomach Family History Aunt Breast cancer Grandfather CAD (coronary artery disease) Father Heart disease, Onset Age: 73 Triple bypass Mother Heart disease, Onset Age: 62 Other Diabetes Surgical History Hx of tooth extraction History of cholecystectomy H/O ovarian cystectomy (09/2019) History of bilateral oophorectomy History of hysterectomy History of tubal ligation Social History household members: none Smoking Status: Current every day smoker tobacco type: cigarettes Tobacco: How many years used: 15 alcohol intake: current substance use type: does not use ROS ROS ED Constitutional Constitutional ED: Denies chills, fever(s) or weight loss Eyes Eyes: Denies change in vision or diplopia ENT ENT ED: Denies ear pain, rhinorrhea or sore throat Cardiovascular Cardiovascular: Denies chest pain, orthopnea, palpitations or racing heartbeat Respiratory/Chest Respiratory/Chest: Denies cough, dyspnea or orthopnea Gastrointestinal Gastrointestinal: Denies abdominal pain, diarrhea, nausea or vomiting Genitourinary Genitourinary ED: Denies dysuria, hematuria or urinary frequency Musculoskeletal Musculoskeletal: Reports back pain; Denies arthralgias or myalgias Integumentary Denies abscess or rash Neurologic Neurologic: Denies headache(s) or weakness Psychiatric Psychiatric: Denies anxiety, depression, suicidal ideation or suicidal thoughts Endocrine Endocrinology: Denies polydipsia, polyphagia or polyuria Allergic/Immunologic Allergic/Immunologic ED: Denies mouth swelling, tongue swelling or urticaria EXAM Physical Exam Const Vital Signs: 08/21/24 10:00 Temperature 96.9 F L Temperature Source Temporal Pulse Rate 94 Respiratory Rate 16 Blood Pressure 137/77 H Blood Pressure Mean 97 Pulse Ox 99 Oxygen Delivery Method Room Air Positive well nourished, well developed and obese General Appearance ED: well developed and NAD Nutritional Appearance: obese HEENT Reports normocephalic, head/scalp atraumatic and moist mucous membranes Eyes PERRL and EOMs intact bilaterally Neck no lymphadenopathy, supple and no JVD Resp normal respiratory effort and clear to auscultation bilaterally Cardio regular rate, regular rhythm and no murmurs GI normal to inspection, nondistended, normoactive bowel sounds and non-tender Palpation: soft Back/Spine no CVA tenderness Back/Spine Narrative: Patient sitting on the side of the bed. He will appreciate neurologic deficits. She was changed to palpation of the lumbar paraspinal musculature. I do not appreciate tissue texture changes to suggest underlying infectious process. Extremity normal to inspection General Extremety ED: Negative for edema General Extremity: Negative for edema Neuro oriented x3 and CN's II-XII intact bilaterally Sensorium / Orientation: alert Motor Exam: strength 5/5 throughout Deep Tendon Reflexes: Rt Patellar (L4): 2+, Lt Patellar (L4): 2+, Rt Ankle (S1): 2+ and Lt Ankle (S1): 2+ Deep Tendon Reflexes Back: Rt Patellar (L4): 2+, Lt Patellar (L4): 2+, Rt Ankle (S1): 2+ and Lt Ankle (S1): 2+ Psych mental status grossly normal Mood & Affect: Negative for depressed or tearful Skin no rashes or lesions noted and no wounds MDM MDM MDM Narrative Medical decision making narrative: Differential diagnosis includes but not limited to muscle spasm degenerative arthrosis discitis abscess radiculopathy disc herniation. My independent interpretation the plain films of lumbar spine is no acute fracture. No significant degenerative changes noted I reviewed the patient's [facility] report. Patient states that she cannot take anti-inflammatories. She states she has been taking low-dose Flexeril. We can increase this to 10 mg. I do not think that narcotics are the right answer most cases this is an ongoing issue and not finding evidence any acute emergent condition. History & Record Review Discussion w/independent historian: Patient Radiography Diagnostic Testing: Clinical Impression(s) from Imaging Studies Lumbar Spine X-Ray 08/21/24 10:23 IMPRESSION: No acute fracture or dislocation identified in the lumbar spine. Electronically Signed: Jadyn Neff MD at 11:37 EST , Discharge Plan Triage Chief Complaint: Back ED Provider: Mac Whitmore Dx/Rx/DC Orders Clinical Impression: Low back pain, Spasm of muscle of lower back Prescriptions: New cyclobenzaprine 10 mg tablet 10 mg PO TID PRN (Reason: Muscle Spasm) Qty: 15 0RF No Action trazodone 50 mg tablet 50 mg PO QHS gabapentin 400 MG capsule 400 mg PO TID PRN (Reason: NEUROPATHY ) Patient Comments: PT STATES THEIR DOCTOR RECENTLY UPPED THE DOSE THAT CAN BE TAKEN aripiprazole 10 mg tablet 10 mg PO DAILY diphenhydramine HCl [Allergy (diphenhydramine)] 25 mg capsule 25 mg PO QHS pantoprazole 40 mg tablet,delayed release (DR/EC) 40 mg PO DAILY promethazine 25 mg tablet 25 mg PO Q8H PRN PRN (Reason: nausea/vomiting) escitalopram oxalate 20 mg tablet 20 mg PO DAILY hyoscyamine sulfate 0.125 mg tablet,disintegrating 0.125 mg PO Q6H PRN (Reason: abdominal discomfort) Qty: 10 0RF ciprofloxacin HCl 500 mg tablet 500 mg PO BID 5 Days Qty: 10 0RF lorazepam 0.5 mg tablet 0.5 mg PO DAILY PRN (Reason: ANXIETY ) Qty: 7 0RF mesalamine 1.2 gram tablet,delayed release (DR/EC) 2.4 g PO DAILY 30 Days Qty: 60 1RF Primary Care Provider: Michell Baca Referrals: Michell Baca MD [Primary Care Provider] - Print Language: Prydeinig Disposition Disposition: Home, Self Care Discharge Date/Time: 08/21/24 11:26
== END 2024-08-21 11:26 | disposition home or self-care (01) ==
LOC: ED 10:31
PROVIDERS: Emergency Provider Emergency Medicine; PCP Internal Medicine; Visit Provider Emergency Medicine
DX: M54.50 Low back pain, unspecified (principal); E78.5 Hyperlipidemia, unspecified; F17.210 Nicotine dependence, cigarettes, uncomplicated; Z90.710 Acquired absence of both cervix and uterus; M62.830 Muscle spasm of back; Z79.899 Other long term (current) drug therapy; Z85.42 Personal history of malignant neoplasm of other parts of uterus; F32.A Depression, unspecified; F41.9 Anxiety disorder, unspecified; K21.9 Gastro-esophageal reflux disease without esophagitis; Z90.49 Acquired absence of other specified parts of digestive tract; Z90.6 Acquired absence of other parts of urinary tract; Z90.722 Acquired absence of ovaries, bilateral; Z98.51 Tubal ligation status
CPT/HCPCS: 72100; 99282

== ENCOUNTER 2024-10-04 16:51 | Emergency (ER) | payer MEDICAID, SELFPAY ==
[2024-10-04 16:52] VITALS: BP 163/78; PULSE 81; RESP 16; TEMP 36.6; O2SAT 100; BMI 38.8
--- NOTE | 2024-10-04 17:54 | CT_ITS ---
STUDY: CT ABDOMEN AND PELVIS WITH CONTRAST REASON FOR EXAM: Female, 44 years old. epigastric pain, flank pain left, uterine cancer, cholecystectomy, hysterectomy. RADIATION DOSAGE (If Supplied By Facility): CTDIvol = ( 19.41 ) mGy, DLP = ( 1212.5 ) mGycm TECHNIQUE: Transaxial images were obtained from the dome of the diaphragm to the symphysis pubis without oral contrast. IV 100mL Isovue-370 was administered. Sagittal and coronal images were reconstructed. Individualized dose optimization techniques were used for this CT. COMPARISON: June 13, 2024 FINDINGS: There is minor atelectasis within the dependent portion of both lower lobes. The visualized portions of the heart are within normal limits. No coronary artery calcification observed Nonspecific fatty infiltrated liver with multiple cysts. Bile ducts are not dilated. Gallbladder has been removed surgically. Normal spleen. Normal pancreas. Normal bilateral adrenal glands. Normal right kidney. There are tiny nonobstructing left renal calculi. Normal visualized stomach. Normal small intestine. Normal colon. No evidence for acute appendicitis Normal abdominal aorta. Normal inferior vena cava. Normal retroperitoneum. Diffuse nonspecific bladder distention Uterus not visualized status post hysterectomy Normal abdominal wall. Lumbar spine demonstrates mild spondylosis. CT/Abdomen/Pelvis W IV Cont ONLY IMPRESSION: Multiple hepatic cysts Left nephrolithiasis without evidence for hydronephrosis or ureteral calculus at this time. Diffuse nonspecific bladder distention. Electronically Signed: Marcelino Ahmadi MD at 19:52 EST ,
[2024-10-04] MEDS: 0.9% Normal Saline (1000mL) 1,000 ML 999 ML IV (17:58)
[2024-10-04] MEDS: Ondansetron 4 MG/2 ML Vial IV (18:03)
[2024-10-04] MEDS: Morphine 4 MG/ML Syringe IV (18:03)
[2024-10-04] MEDS: DiphenhydrAMINE 50 MG/ML Syringe 25 MG IV (18:04)
[2024-10-04] MEDS: MethylPREDNISolone 125 MG/2 ML Vial IV (18:04)
[2024-10-04 18:05] LABS: Absolute Lymphocyte Count 3.27 X10^3/uL (0.83-4.51); Absolute Neutrophil Count 3.6 X10^3/uL (2.0-7.7); Basophil# 0.07 X10^3/uL; Basophil% 0.9 % (0-1); Eosinophil# 0.25 X10^3/uL; Eosinophils% 3.2 % (0-5); Hematocrit 39.4 % (37-47); Hemoglobin 12.9 g/dL (12.0-15.0); Lymphocyte # 3.27 X10^3/ul (0.83-4.51); Lymphocyte % 41.6 % (19-41); Mean Corp Hgb Conc 32.7 g/dL (32-36); Mean Corpuscular Hgb 29.9 pg (27.0-32.0); Mean Corpuscular Volume 91.2 fL (81-99); Mean Platelet Vol. 10.4 fl (6.2-12.0); Monocyte# 0.54 X10^3/uL; Monocyte% 6.9 % (0-10); NRBC Flagged by Analyzer 0 % (0-5); Neutrophil # 3.61 X10^3/uL (2.7-7.7); Neutrophil % 45.7 % (47-70); Platelet Count 250 K/mm3 (150-450); RBC Distribution Width SD 43.3 fl (35.1-43.9); Red Blood Count 4.32 M/mm3 (4.2-5.4); White Blood Count 7.9 K/mm3 (4.4-11.0)
--- NOTE | 2024-10-04 18:24 | EX.ED.DYSGE1 ---
HPI History of Present Illness Chief Complaint: Abd Pain Narrative Narrative: Patient is a 44-year-old female with a past medical history of pancreatitis, nephrolithiasis, bipolar disorder, migraine headaches, tubo-ovarian mass status post hysterectomy and bilateral oophorectomy who presents to the emergency department with a chief complaint of abdominal pain nausea vomiting. Patient states that she follows with Dr. Harris for her pancreatitis and states that she attempted to call his office several times today and no one was returning her phone calls. States that she had pain associated with this and came here for the valuation management. Patient states that she does have a history of kidney stones but states that this does not feel like a kidney stone. She does not have any urinary symptoms. [facility] Medical History Cancer Depression Rheumatoid arthritis Arthritis Back pain Difficulty chewing Gastric reflux Chronic cough History of Holter monitoring History of stress test Cardiology follow-up encounter Anxiety Kidney stones Smoker Abdominal pain Intractable nausea and vomiting History of pancreatitis Pancreatitis Bipolar disorder Lung nodule Migraine Chronic pain Ovarian cyst Obesity Incomplete right bundle branch block Hyperlipidemia History of uterine cancer (2006) Right tubo-ovarian mass Ureteral stone with hydronephrosis History of renal calculi Home Medications ?Medication ?Instructions ?Recorded ?Last Taken ?Type gabapentin 400 mg capsule 400 mg PO TID PRN NEUROPATHY 10/03/20 12/02/23 History aripiprazole 10 mg tablet 10 mg PO DAILY DEPRESSION 10/25/23 12/02/23 History lorazepam 0.5 mg tablet 0.5 mg PO DAILY PRN ANXIETY #7 01/26/24 Unknown Rx tabs mesalamine 1.2 gram tablet,delayed 2.4 g (2 x 1.2 gram) PO DAILY 30 02/09/24 Unknown Rx release days #60 tabs trazodone 50 mg tablet 50 mg PO QHS 02/23/24 Unknown History hyoscyamine sulfate 0.125 mg 0.125 mg PO Q6H PRN abdominal 02/24/24 Unknown Rx disintegrating tablet discomfort #10 tabs diphenhydramine HCl 25 mg capsule 25 mg PO QHS 05/25/24 Unknown History (Allergy (diphenhydramine)) escitalopram oxalate 20 mg tablet 20 mg PO DAILY 05/25/24 Unknown History pantoprazole 40 mg tablet,delayed 40 mg PO DAILY 05/25/24 Unknown History release promethazine 25 mg tablet 25 mg PO Q8H PRN PRN 05/25/24 Unknown History nausea/vomiting ciprofloxacin HCl 500 mg tablet 500 mg PO BID 5 days #10 TABLETS 06/13/24 Unknown Rx cyclobenzaprine 10 mg tablet 10 mg PO TID PRN Muscle Spasm #15 08/21/24 Unknown Rx TABLETS hyoscyamine sulfate 0.125 mg 0.125 mg PO Q6H 4 days #16 tabs 10/04/24 Unknown Rx tablet (Levsin) ondansetron 4 mg disintegrating 4 mg PO Q6H PRN nausea and 10/04/24 Unknown Rx tablet vomiting #20 tabs Allergy/AdvReac Type Severity Reaction Status Date / Time Iodinated Contrast Media (CT) Allergy Shortness Verified 10/04/24 17:59 of breath ketorolac tromethamine (From Allergy Rash Verified 10/04/24 16:52 Toradol) metronidazole (From Flagyl) Allergy Hives Verified 10/04/24 16:52 Penicillins Allergy Hives Verified 10/04/24 16:52 dicyclomine (From Bentyl) AdvReac Mild Hives Verified 10/04/24 16:52 aspirin AdvReac Upset Verified 10/04/24 16:52 Stomach Family History Aunt Breast cancer Grandfather CAD (coronary artery disease) Father Heart disease, Onset Age: 73 Triple bypass Mother Heart disease, Onset Age: 62 Other Diabetes Surgical History Hx of tooth extraction History of cholecystectomy H/O ovarian cystectomy (09/2019) History of bilateral oophorectomy History of hysterectomy History of tubal ligation Social History household members: none Smoking Status: Current every day smoker tobacco type: cigarettes Tobacco: How many years used: 15 alcohol intake: current substance use type: does not use ROS ROS ED ROS Narrative Constitutional: Denies any fevers, chills, headaches, lightness, dizziness Eyes: Denies change in vision double vision blurry vision Cardiovascular: Denies chest pain Respiratory: Denies shortness of breath Abdomen: Complains of abdominal pain as noted above and nausea vomiting as well as diarrhea : Denies any urinary symptoms Neurological: Denies numbness, weakness, tingling Musculoskeletal: Denies back pain Skin: Denies rashes or lesions EXAM Physical Exam Narrative Exam Narrative: General: Patient was lying in bed rest comfortably did not appear to be in acute distress Head: Atraumatic, normocephalic Eyes: PERRL bilaterally, EOMI bilaterally, no conjunctival injection noted Neck: Soft, supple, trachea midline Cardiovascular: Regular rate and rhythm no murmurs gallops rubs noted Respiratory: Clear to auscultation bilaterally no rales rhonchi or wheezes noted Abdomen: Soft, nondistended, tenderness palpation in the epigastric region as well as the left upper quadrant no rebound or guarding on exam, bowel sounds present x 4 Extremities: +5/5 strength noted in the bilateral upper and lower extremities, radial pulses +2/4 in the bilateral extremities, no pedal edema on exam Neurological: Patient following commands knew that she was at [facility] years 2024 Skin: Warm, dry, intact Const Vital Signs: 10/04/24 16:52 10/04/24 18:52 Temperature 98 F Temperature Source Oral Pulse Rate 81 62 Respiratory Rate 16 18 Blood Pressure 163/78 H 120/66 Blood Pressure Mean 106 84 Pulse Ox 100 99 Oxygen Delivery Method Room Air Room Air MDM MDM MDM Narrative Medical decision making narrative: Patient is a 44-year-old female who presents to the emerged part with chief complaint of abdominal pain nausea vomiting. On the differential diagnose includes but not limited to viral gastroenteritis, pancreatitis, small bowel obstruction, urolithiasis. Once workup is obtained reviewed she will be reevaluated. Patient be given IV fluids morphine Zofran Patient CBC reviewed showed no evidence leukocytosis white blood count normal at 7.9, hemoglobin 12.9, plate count normal at 250. Patient sodium was 138, potassium normal 4.2, creatinine normal at 1.02. Patient's AST and ALT were 9 and 22 respectively. Patient total bilirubin normal at 0.40. Patient's lipase was noted to be 43. Patient's urinalysis reviewed showed no evidence of infection. Patient CT abdomen pelvis with IV contrast was reviewed as well which showed mild hepatic cyst. Left nephrolithiasis without evidence for hydronephrosis or ureteral calculus at this point time diffuse nonspecific bladder distention. Patient tested negative for COVID flu RSV. On reevaluation the patient and she is feeling better she would like to go home at this point time. I did discuss the results with the patient and advised her to the Levsin and Zofran as prescribed. I told her to start with a bland diet and advance as tolerated. She is agreeable with this plan all question concerns answered she is discharged home in stable condition. She is vies follow-up with her primary care physician as well. I did discuss with pharmacy and they feel that there is low likelihood that she will have a reaction to Levsin like she had the reaction to Bentyl. Lab Data Labs: Laboratory Results - last 24 hr 10/04/24 10/04/24 17:50 19:25 WBC 7.9 RBC 4.32 Hgb 12.9 Hct 39.4 MCV 91.2 MCH 29.9 MCHC 32.7 RDW Std Deviation 43.3 RDW Coeff of Shun 13.0 Plt Count 250 MPV 10.4 Immature Gran % (Auto) 1.700 H Neut % (Auto) 45.7 L Lymph % (Auto) 41.6 H [place] % (Auto) 6.9 Eos % (Auto) 3.2 Baso % (Auto) 0.9 Absolute Neuts (auto) 3.6 Absolute Lymphs (auto) 3.27 Nucleated RBC % 0 Sodium 138 Potassium 4.2 Chloride 105 Carbon Dioxide 31.0 Anion Gap 2 L BUN 15 Creatinine 1.02 Estim Creat Clear Calc 72.53 Est GFR (MDRD) Af Amer 75 Est GFR (MDRD) Non-Af 62 BUN/Creatinine Ratio 14.7 Glucose 100 Calcium 9.2 Total Bilirubin 0.40 AST 9 L ALT 22 Alkaline Phosphatase 140 H Total Protein 7.6 Albumin 3.7 Globulin 3.9 Albumin/Globulin Ratio 0.9 Lipase 43 Urine Color Yellow Urine Clarity Clear Urine pH 6.5 Ur Specific [place] 1.005 Urine Protein Negative Urine Glucose (UA) Normal Urine Ketones Negative Urine Occult Blood Negative Urine Nitrite Negative Urine Bilirubin Negative Urine Urobilinogen Normal Ur Leukocyte Esterase Negative Urine RBC 0 SEEN Urine WBC 0-5 SEEN Ur Squamous Epith Cells 5-10 SEEN Urine Bacteria RARE Urine Mucus 0 SEEN Radiography Diagnostic Testing: Clinical Impression(s) from Imaging Studies Abdomen/Pelvis CT 10/04/24 17:54 IMPRESSION: Multiple hepatic cysts Left nephrolithiasis without evidence for hydronephrosis or ureteral calculus at this time. Diffuse nonspecific bladder distention. Electronically Signed: Marcelino Ahmadi MD at 19:52 EST , Discharge Plan Triage Chief Complaint: Abd Pain ED Provider: Chance Botello Dx/Rx/DC Orders Clinical Impression: Abdominal pain Prescriptions: New hyoscyamine sulfate [Levsin] 0.125 mg tablet 0.125 mg PO Q6H 4 Days Qty: 16 0RF ondansetron 4 mg tablet,disintegrating 4 mg PO Q6H PRN (Reason: nausea and vomiting) Qty: 20 0RF No Action trazodone 50 mg tablet 50 mg PO QHS gabapentin 400 MG capsule 400 mg PO TID PRN (Reason: NEUROPATHY ) Patient Comments: PT STATES THEIR DOCTOR RECENTLY UPPED THE DOSE THAT CAN BE TAKEN aripiprazole 10 mg tablet 10 mg PO DAILY diphenhydramine HCl [Allergy (diphenhydramine)] 25 mg capsule 25 mg PO QHS pantoprazole 40 mg tablet,delayed release (DR/EC) 40 mg PO DAILY promethazine 25 mg tablet 25 mg PO Q8H PRN PRN (Reason: nausea/vomiting) escitalopram oxalate 20 mg tablet 20 mg PO DAILY cyclobenzaprine 10 mg tablet 10 mg PO TID PRN (Reason: Muscle Spasm) Qty: 15 0RF hyoscyamine sulfate 0.125 mg tablet,disintegrating 0.125 mg PO Q6H PRN (Reason: abdominal discomfort) Qty: 10 0RF ciprofloxacin HCl 500 mg tablet 500 mg PO BID 5 Days Qty: 10 0RF lorazepam 0.5 mg tablet 0.5 mg PO DAILY PRN (Reason: ANXIETY ) Qty: 7 0RF mesalamine 1.2 gram tablet,delayed release (DR/EC) 2.4 g PO DAILY 30 Days Qty: 60 1RF Primary Care Provider: Michell Baca Referrals: Michell Baca MD [Primary Care Provider] - Activity Restrictions/Additional Instructions: Follow-up your doctor now presenting. Return with worsening symptoms or any concerns. When you take the Levsin if you get a rash take Benadryl. Return with worsening symptoms or concerns. Your CT scan and blood work did not show any evidence of pancreatitis no acute findings. Print Language: Arabic Disposition Disposition: Home, Self Care
[2024-10-04 18:27] LABS: ALB/GLOB Ratio 0.9 RATIO (0.9-2.4); AST(SGOT) 9 U/L (15-37); Alanine Aminotransfer ALT/SGPT 22 U/L (13-56); Albumin, Serum 3.7 g/dL (3.2-5.0); Alkaline Phosphatase 140 U/L (45-117); Anion Gap 2 (5-15); BUN 15 mg/dL (7-18); BUN/Creat Ratio 14.7 RATIO (10-20); Calcium,Total 9.2 mg/dL (8.5-10.1); Chloride 105 mmol/L (98-107); Creatinine, Serum 1.02 mg/dL (0.55-1.02); EST Glomerular Filtration Rate 62 mL/min (>60); Est Glom Filt Rate - Afr Amer 75 mL/min (>60); Estimated Creatinine Clearance 72.53 ml/min; Globulin 3.9 g/dL (2.2-4.2); Glucose 100 mg/dL (74-106); Lipase 43 U/L (13-75); Potassium 4.2 mmol/L (3.5-5.1); Protein, Total 7.6 g/dL (6.4-8.2); Sodium Level 138 mmol/L (136-145)
[2024-10-04 18:52] VITALS: BP 120/66; PULSE 62; RESP 18; O2SAT 99
[2024-10-04 19:32] LABS: Mucous, Urine 0 SEEN /hpf (<or=2+); Red Blood Cells-Urine 0 SEEN /hpf (0-5)
[2024-10-04 19:39] LABS: Color, Urine Yellow (Yellow); Glucose, Dipstick Normal (Normal); Ketone-Dipstick Negative (Negative); Leukocyte Esterase-Dipstick Negative /ul (Negative); Nitrite-Dipstick Negative (Negative); Occult Blood-Urine Negative /ul (Negative); Protein-Dipstick Negative (Negative); Specific Gravity, Urine 1.005 (1.002-1.030); Urine Bilirubin Dipstick Negative (Negative); Urine Clarity Clear (Clear); Urine Urobilinogen Normal (Normal); Urine pH 6.5 (5.0 - 8.0)
[2024-10-04 20:00] VITALS: BP 104/63; PULSE 61; RESP 18; TEMP 37.1; O2SAT 99
[2024-10-04 20:21] LABS: Bacteria RARE /hpf (None Seen); Squamous Epithelial Cells - UA 5-10 SEEN /hpf (5-10); White Blood Cells 0-5 SEEN /hpf (0-5)
== END 2024-10-04 20:40 | disposition home or self-care (01) ==
PROVIDERS: Emergency Provider Emergency Medicine; PCP Internal Medicine; Visit Provider Emergency Medicine
DX: R10.9 Unspecified abdominal pain (principal); F31.9 Bipolar disorder, unspecified; E78.5 Hyperlipidemia, unspecified; N20.0 Calculus of kidney; N32.89 Other specified disorders of bladder; F17.210 Nicotine dependence, cigarettes, uncomplicated; K76.89 Other specified diseases of liver; Z90.710 Acquired absence of both cervix and uterus; Z90.49 Acquired absence of other specified parts of digestive tract; Z98.51 Tubal ligation status; Z87.440 Personal history of urinary (tract) infections; Z85.42 Personal history of malignant neoplasm of other parts of uterus
CPT/HCPCS: 74177; 80053; 81001; 83690; 85025; 87631; 96361; 96374; 96375; 99282; Q9967; A4216; J2405

== ENCOUNTER 2024-11-17 17:24 | Emergency (ER) | payer SELFPAY ==
[2024-11-17 17:25] VITALS: BP 188/100; PULSE 88; RESP 20; TEMP 36.6; O2SAT 99; BMI 39.4
[2024-11-17 17:52] LABS: Bacteria 0 SEEN /hpf (None Seen); Mucous, Urine 0 SEEN /hpf (<or=2+); White Blood Cells 0 SEEN /hpf (0-5)
[2024-11-17 17:56] LABS: Absolute Lymphocyte Count 3.78 X10^3/uL (0.83-4.51); Absolute Neutrophil Count 7.1 X10^3/uL (2.0-7.7); Basophil# 0.07 X10^3/uL; Basophil% 0.6 % (0-1); Eosinophil# 0.12 X10^3/uL; Hematocrit 39.8 % (37-47); Hemoglobin 13.2 g/dL (12.0-15.0); Lymphocyte # 3.78 X10^3/ul (0.83-4.51); Mean Corp Hgb Conc 33.2 g/dL (32-36); Mean Corpuscular Volume 90.5 fL (81-99); Mean Platelet Vol. 9.8 fl (6.2-12.0); Monocyte# 0.57 X10^3/uL; Monocyte% 4.8 % (0-10); NRBC Flagged by Analyzer 0 % (0-5); Neutrophil # 7.14 X10^3/uL (2.7-7.7); Neutrophil % 60.6 % (47-70); Platelet Count 292 K/mm3 (150-450); RBC Distribution Width CV 13.2 % (11.6-14.6); RBC Distribution Width SD 43.5 fl (35.1-43.9); White Blood Count 11.8 K/mm3 (4.4-11.0)
[2024-11-17 17:56] LABS: Color, Urine Yellow (Yellow); Glucose, Dipstick Normal (Normal); Ketone-Dipstick Negative (Negative); Leukocyte Esterase-Dipstick Negative /ul (Negative); Nitrite-Dipstick Negative (Negative); Occult Blood-Urine 10 /ul (Negative); Protein-Dipstick Negative (Negative); Urine Bilirubin Dipstick Negative (Negative); Urine Clarity Sl. Cloudy (Clear); Urine Urobilinogen Normal (Normal)
[2024-11-17 18:10] LABS: Red Blood Cells-Urine 0-5 SEEN /hpf (0-5); Squamous Epithelial Cells - UA 0-5 SEEN /hpf (5-10)
[2024-11-17 18:54] LABS: ALB/GLOB Ratio 1.3 RATIO (0.9-2.4); AST(SGOT) 18 U/L (<=31); Alanine Aminotransfer ALT/SGPT 22 U/L (<=34); Albumin, Serum 4.5 g/dL (3.5-5.0); Alkaline Phosphatase 143 U/L (35-104); Anion Gap 12 (5-15); BUN 12 mg/dL (4-19); BUN/Creat Ratio 11.7 RATIO (10-20); Calcium,Total 9.4 mg/dL (7.6-11.0); Carbon Dioxide 23.8 mmol/L (21.0-32.0); Chloride 103 mmol/L (98-108); EST Glomerular Filtration Rate 71 (>60); Estimated Creatinine Clearance 74.65 ml/min (50-250); Globulin 3.5 g/dL (2.2-4.2); Glucose 95 mg/dL (70-99); Sodium Level 140 mmol/L (133-145); Total Bilirubin 0.31 mg/dL (0.00-1.30)
[2024-11-17] MEDS: DiphenhydrAMINE 50 MG/ML Syringe 25 MG IV (19:01)
[2024-11-17] MEDS: Metoclopramide 10 MG/2 ML Vial IV (19:01)
[2024-11-17] MEDS: MethylPREDNISolone 125 MG/2 ML Vial IV (19:01)
[2024-11-17 19:24] VITALS: BP 140/80; PULSE 78; RESP 14; O2SAT 98
--- NOTE | 2024-11-17 20:19 | EX.ED.DYSGE1 ---
HPI History of Present Illness Chief Complaint: Flank Pain Narrative Narrative: Patient is a 44-year-old female with a past medical history of kidney stones, anxiety, depression, GERD, bipolar disorder, pancreatitis who presents to the emergency department with a chief complaint of left flank pain radiating to her abdomen. She states that this has been going off and on for approximately 2 weeks but states the last 2 days it has significantly worsened prompting her to come here for the valuation management. 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 Patient states that she does have some burning with urination as well and notes that she has a history of pancreatitis and kidney stone therefore she was concerned for these prompting her to come here for the valuation management. Patient denies any sick contacts [facility] Medical History Cancer Depression Rheumatoid arthritis Arthritis Back pain Difficulty chewing Gastric reflux Chronic cough History of Holter monitoring History of stress test Cardiology follow-up encounter Anxiety Kidney stones Smoker Abdominal pain Intractable nausea and vomiting History of pancreatitis Pancreatitis Bipolar disorder Lung nodule Migraine Chronic pain Ovarian cyst Obesity Incomplete right bundle branch block Hyperlipidemia History of uterine cancer (2006) Right tubo-ovarian mass Ureteral stone with hydronephrosis History of renal calculi Home Medications ?Medication ?Instructions ?Recorded ?Last Taken ?Type gabapentin 400 mg capsule 400 mg PO TID PRN NEUROPATHY 10/03/20 12/02/23 History aripiprazole 10 mg tablet 10 mg PO DAILY DEPRESSION 10/25/23 12/02/23 History lorazepam 0.5 mg tablet 0.5 mg PO DAILY PRN ANXIETY #7 01/26/24 Unknown Rx tabs mesalamine 1.2 gram tablet,delayed 2.4 g (2 x 1.2 gram) PO DAILY 30 02/09/24 Unknown Rx release days #60 tabs trazodone 50 mg tablet 50 mg PO QHS 02/23/24 Unknown History hyoscyamine sulfate 0.125 mg 0.125 mg PO Q6H PRN abdominal 02/24/24 Unknown Rx disintegrating tablet discomfort #10 tabs diphenhydramine HCl 25 mg capsule 25 mg PO QHS 05/25/24 Unknown History (Allergy (diphenhydramine)) escitalopram oxalate 20 mg tablet 20 mg PO DAILY 05/25/24 Unknown History pantoprazole 40 mg tablet,delayed 40 mg PO DAILY 05/25/24 Unknown History release promethazine 25 mg tablet 25 mg PO Q8H PRN PRN 05/25/24 Unknown History nausea/vomiting ciprofloxacin HCl 500 mg tablet 500 mg PO BID 5 days #10 TABLETS 06/13/24 Unknown Rx cyclobenzaprine 10 mg tablet 10 mg PO TID PRN Muscle Spasm #15 08/21/24 Unknown Rx TABLETS hyoscyamine sulfate 0.125 mg 0.125 mg PO Q6H 4 days #16 tabs 10/04/24 Unknown Rx tablet (Levsin) ondansetron 4 mg disintegrating 4 mg PO Q6H PRN nausea and 10/04/24 Unknown Rx tablet vomiting #20 tabs ondansetron 4 mg disintegrating 4 mg PO Q6H PRN nausea and 11/17/24 Unknown Rx tablet vomiting #20 tabs Allergy/AdvReac Type Severity Reaction Status Date / Time fentanyl Allergy Severe Shortness Verified 11/17/24 17:27 of breath Iodinated Contrast Media (CT) Allergy Shortness Verified 11/17/24 17:25 of breath ketorolac tromethamine (From Allergy Rash Verified 11/17/24 17:25 Toradol) metronidazole (From Flagyl) Allergy Hives Verified 11/17/24 17:25 Penicillins Allergy Hives Verified 11/17/24 17:25 dicyclomine (From Bentyl) AdvReac Mild Hives Verified 11/17/24 17:25 aspirin AdvReac Upset Verified 11/17/24 17:25 Stomach Family History Aunt Breast cancer Grandfather CAD (coronary artery disease) Father Heart disease, Onset Age: 73 Triple bypass Mother Heart disease, Onset Age: 62 Other Diabetes Surgical History Hx of tooth extraction History of cholecystectomy H/O ovarian cystectomy (09/2019) History of bilateral oophorectomy History of hysterectomy History of tubal ligation Social History household members: none Smoking Status: Current every day smoker tobacco type: cigarettes Tobacco: How many years used: 15 alcohol intake: current substance use type: does not use ROS ROS ED ROS Narrative Constitutional: Denies fevers, chills, headaches, lightness, dizziness Eyes: Denies any change in vision double vision blurry vision Cardiovascular: Denies chest pain or palpitations Respiratory: Denies shortness of breath Abdomen: Complains of abdominal pain as noted above denies any vomiting or diarrhea : Denies any urinary symptoms Neurological: Denies numbness, weakness, tingling Musculoskeletal: Complains of left flank pain as noted above Skin: Denies rashes or lesions EXAM Physical Exam Narrative Exam Narrative: General: Patient lying in bed rest comfortably did not appear to be in acute distress Head: Atraumatic, normocephalic Eyes: PERRL bilaterally, EOMI bilaterally, no conjunctival injection noted Neck: Soft, supple, trachea midline Cardiovascular: Regular rate and rhythm no murmurs gallops rubs noted Respiratory: Clear to auscultation bilaterally Abdomen: Soft, nondistended, mild tenderness palpation diffusely throughout her abdomen no rebound or guarding on exam Musculoskeletal: No CVA tenderness noted on exam no tenderness palpation midline of thoracic lumbar spine Extremities: +5/5 strength noted in the bilateral upper and lower extremities Neurological: Patient following commands knew that she was at [facility] year is 2024 Skin: Warm, dry, intact no rashes or lesions noted Const Vital Signs: 11/17/24 17:25 11/17/24 19:24 Temperature 97.8 F Temperature Source Temporal Pulse Rate 88 78 Respiratory Rate 20 H 14 Blood Pressure 188/100 H 140/80 H Blood Pressure Mean 129 100 Pulse Ox 99 98 Oxygen Delivery Method Room Air MDM MDM MDM Narrative Medical decision making narrative: Patient is a 44-year-old female who presented to the emergency department with a chief complaint of abdominal pain and flank pain. On the differential diagnose includes but limited to pancreatitis, appendicitis, urolithiasis, UTI, pyelonephritis. Once workup is obtained reviewed she will be reevaluated. Patient CBC was reviewed and was largely unremarkable she had a mild leukocytosis of 11,000, hemoglobin 13.2, platelet count was noted be 292. Patient sodium normal 140, potassium of 4, creatinine normal at 1. Patient AST and ALT were 18 and 22 respectively, total bilirubin normal at 0.31. Patient's urinalysis did not reveal any evidence of infection. While awaiting CT scan the patient went to the restroom had diarrhea and she came back to the room and told the nurse that she feels much improved and would like to go home at this point time. I went back in and reevaluated the patient and she states that she does not need the CT scan she feels much better and wants to go home. She will be given prescription for Zofran for as needed nausea. She is advised to follow-up with Dr. Harris in outpatient setting at her scheduled appointment on the . She is agreeable this plan all question concerns answered she was discharged home in stable condition. Lab Data Labs: Laboratory Results - last 24 hr 11/17/24 11/17/24 17:32 17:38 WBC 11.8 H RBC 4.40 Hgb 13.2 Hct 39.8 MCV 90.5 MCH 30.0 MCHC 33.2 RDW Std Deviation 43.5 RDW Coeff of Shun 13.2 Plt Count 292 MPV 9.8 Immature Gran % (Auto) 1.000 H Neut % (Auto) 60.6 Lymph % (Auto) 32.0 Major % (Auto) 4.8 Eos % (Auto) 1.0 Baso % (Auto) 0.6 Absolute Neuts (auto) 7.1 Absolute Lymphs (auto) 3.78 Nucleated RBC % 0 Sodium 140 Potassium 4.0 Chloride 103 Carbon Dioxide 23.8 Anion Gap 12 BUN 12 Creatinine 1.00 Estim Creat Clear Calc 74.65 Est GFR (MDRD) Non-Af 71 BUN/Creatinine Ratio 11.7 Glucose 95 Calcium 9.4 Total Bilirubin 0.31 AST 18 ALT 22 Alkaline Phosphatase 143 H Total Protein 8.0 Albumin 4.5 Globulin 3.5 Albumin/Globulin Ratio 1.3 Urine Color Yellow Urine Clarity Sl. Cloudy Urine pH 7.0 Ur Specific [place] 1.010 Urine Protein Negative Urine Glucose (UA) Normal Urine Ketones Negative Urine Occult Blood 10 H Urine Nitrite Negative Urine Bilirubin Negative Urine Urobilinogen Normal Ur Leukocyte Esterase Negative Urine RBC 0-5 SEEN Urine WBC 0 SEEN Ur Squamous Epith Cells 0-5 SEEN Urine Bacteria 0 SEEN Urine Mucus 0 SEEN Discharge Plan Triage Chief Complaint: Flank Pain ED Provider: Chance Botello Dx/Rx/DC Orders Clinical Impression: Abdominal pain Prescriptions: New ondansetron 4 mg tablet,disintegrating 4 mg PO Q6H PRN (Reason: nausea and vomiting) Qty: 20 0RF No Action trazodone 50 mg tablet 50 mg PO QHS gabapentin 400 MG capsule 400 mg PO TID PRN (Reason: NEUROPATHY ) Patient Comments: PT STATES THEIR DOCTOR RECENTLY UPPED THE DOSE THAT CAN BE TAKEN aripiprazole 10 mg tablet 10 mg PO DAILY diphenhydramine HCl [Allergy (diphenhydramine)] 25 mg capsule 25 mg PO QHS pantoprazole 40 mg tablet,delayed release (DR/EC) 40 mg PO DAILY promethazine 25 mg tablet 25 mg PO Q8H PRN PRN (Reason: nausea/vomiting) escitalopram oxalate 20 mg tablet 20 mg PO DAILY cyclobenzaprine 10 mg tablet 10 mg PO TID PRN (Reason: Muscle Spasm) Qty: 15 0RF hyoscyamine sulfate [Levsin] 0.125 mg tablet 0.125 mg PO Q6H 4 Days Qty: 16 0RF ondansetron 4 mg tablet,disintegrating 4 mg PO Q6H PRN (Reason: nausea and vomiting) Qty: 20 0RF hyoscyamine sulfate 0.125 mg tablet,disintegrating 0.125 mg PO Q6H PRN (Reason: abdominal discomfort) Qty: 10 0RF ciprofloxacin HCl 500 mg tablet 500 mg PO BID 5 Days Qty: 10 0RF lorazepam 0.5 mg tablet 0.5 mg PO DAILY PRN (Reason: ANXIETY ) Qty: 7 0RF mesalamine 1.2 gram tablet,delayed release (DR/EC) 2.4 g PO DAILY 30 Days Qty: 60 1RF Primary Care Provider: Michell Baca Referrals: Michell Baca MD [Primary Care Provider] - Activity Restrictions/Additional Instructions: Follow-up your doctor now per setting and return with worsening symptoms and concerns. Use Zofran as prescribed. Start bland diet advance as tolerated. Print Language: Chilean Disposition Disposition: Home, Self Care
== END 2024-11-17 20:39 | disposition home or self-care (01) ==
PROVIDERS: Emergency Provider Emergency Medicine; PCP Internal Medicine; Referring Provider Emergency Medicine; Visit Provider Emergency Medicine
DX: R10.9 Unspecified abdominal pain (principal); F31.9 Bipolar disorder, unspecified; F41.9 Anxiety disorder, unspecified; F17.210 Nicotine dependence, cigarettes, uncomplicated; E78.5 Hyperlipidemia, unspecified; Z98.51 Tubal ligation status; Z90.710 Acquired absence of both cervix and uterus; Z90.49 Acquired absence of other specified parts of digestive tract; Z87.442 Personal history of urinary calculi
CPT/HCPCS: 80053; 81001; 85025; 96374; 96375; 99283; A4216

== ENCOUNTER 2024-11-22 10:44 | Emergency (ER) | payer SELFPAY ==
[2024-11-22 10:44] VITALS: BP 140/88; PULSE 92; RESP 20; TEMP 35.8; O2SAT 99; BMI 38.9
== END 2024-11-22 11:15 | disposition left against medical advice (07) ==
LOC: ED 12:11
PROVIDERS: PCP Internal Medicine
DX: S89.80XA Other specified injuries of unspecified lower leg, initial encounter (principal)

== ENCOUNTER 2025-05-15 11:05 | Emergency (ER) | payer SELFPAY ==
[2025-05-15 11:06] VITALS: BP 122/69; PULSE 77; RESP 18; TEMP 36.7; O2SAT 98; BMI 36.1
--- OUTSIDE RECORDS SUMMARY | 2025-05-15 11:50 | XMS RPT_ITS | CCD ---
Author Organization [facility] Care Team Providers Care Director Of Securities And Real Estate Name Role Phone MARCELINO ALBERT Admitting Unavailable MARCELNIO ALBERT Referring Unavailable NO, PHYSICIAN Primary Care Unavailable IGOESARAH Attending Unavailable NO, PHYSICIAN Primary Care Unavailable IGOESARAH Attending Unavailable No, Physician Primary Care Provider UnavailMARCELINO Lopez MD Primary Care Physician Marcelino Albert MD Primary Care Provider Unava ilable Marcelino Albert MD Primary Care Provider MARCELINO ALBERT MD Primary Care Physician Marcelino Albert MD Primary Care Provider Marcelino Albert MD Primary Care Provider Marcelino Albert MD Primary Care Provider Unavailable Primary Care Provider UnavailMarcelino Lopez MD Primary Care Provider PHYSICIAN, NONE Primary Care Physician Unavailab Silverio Jimenez MD Primary Care Provider EVANGELINA CAR ATTENDANT-CLASSROOM TEACHERMERCED Primary Care Physicia n MALA ALMENDAREZ Attending Unavailable SILVERIO HALEY Primary Care Unavailable Marcelino Albert MD Primary Care Provider Marcelino Albert MD Primary Care Provider Dr. Silverio Haley Primary Care Provider Dr. Ryan Garcia Emergency Provider Dr. Jonh Geiger Admit Provider [phone] Jonh Geiger Other Provider [phone] Dr. Blue Rose Attending Provider [phone] Friend, Dr. Plaza Other Provider Dr. Eduar Gurrola Other Provider Dr. Eduar Gurrola Attending Provider Silverio Haley MD Primary Care Provider Dr. Silverio Haley Referring Provider Steven, Dr. Plaza Attending Provider EVANGELINA CAR ATTENDANT-CLASSROOM TEACHER, [facility] Primary Care Unava ilable BEATRIZ ALVARADO, ETHAN Shannon Attending Unavail able BEATRIZ ALVARADO, ETHAN Shannon Attending Unavail able EVANGELINA CAR ATTENDANT-CLASSROOM TEACHER, [facility] Unava ilable KAPPER CAR ATTENDANT-CLASSROOM TEACHER, PIERCE Eddy Admitting Unavaila ble KAPPER CAR ATTENDANT-CLASSROOM TEACHER, PIERCE Eddy Attending Unavaila ble EVANGELINA CAR ATTENDANT-CLASSROOM TEACHER, [facility] Unava ilable MICHELLE ALVARADO, DR CHÁVEZ Consulting Unavailabl e OWATE, OKARI Referring Unavailable OWATE, OKARI Consulting Unavailable EVANGELINA CAR ATTENDANT-CLASSROOM TEACHER, [facility] Unava ilable BRAEDEN ALVARADO, NIHGLADIS Admitting Unavailable PLUNK DONIKHIL Consulting Unavailable MATTHEW ALVARADO, CHEY Attending Unavailhanna Albert MD, Marcelino Ferreira Primary Care Provider Marcelino Albert MD Primary Care Provider Roosevelt ALVARADO, Marcelino Ferreira Unavailable Newton CAR ATTENDANT.ORE WASHER, Gretchen Unavailable Evangelina CAR ATTENDANT.CLASSROOM TEACHER, [place] Unavailable DR SILVERIO HALEY MD Primary Care Physician Evangelina CAR ATTENDANT.CLASSROOM TEACHER, [place] Unavailable Blue Rose Referring Unavailable Silverio Haley Primary Care Unavailable Blue Rose Attending Unavailable Blue Rose Referring Unavailable Silverio Haley Primary Care Unavailable Blue Rose Attending Unavailable Silverio Haley Primary Care Unavailable Chance Botello Referring Unavailable Chance Botello Attending Unavailable Rodrigoampcarlos, Silverio D Primary Care Unavailable Chance Botello Attending Unavailable Talampas, Silverio D Primary Care Unavailable Eleanor Borjas Attending Unavailable Talampas, Silverio D Primary Care Unavailable Tristen Adams Attending Unavailable Talampas, Silverio D Primary Care Unavailable Grzegorz Roper Attending Unavailable Talampas, Silverio D Primary Care Unavailable Grzegorz Roper Attending Unavailable Talampas, Silverio D Primary Care Unavailable Tristen Adams Attending Unavailable FriendBlue Attending Unavailable Talampas, Silverio D Primary Care Unavailable Talampas, Silverio D Referring Unavailable Provider, Ed Physician Attending Unavailab le Talampas, Silverio D Primary Care Unavailable Mac Whitmore Attending Unavailable Talampas, Silverio D Primary Care Unavailable FriendBlue Attending Unavailable Talampas, Silverio D Primary Care Unavailable Talampas, Silverio D Referring Unavailable Talampas, Silverio D Primary Care Unavailable Mor Painter Attending Unavailable Talampas, Silverio D Referring Unavailable Talampas, Silverio D Primary Care Unavailable Per Khan Attending Unavailable Talampas, Silverio D Referring Unavailable Talampas, Silverio D Primary Care Unavailable FriendBlue Attending Unavailable Talampas, Silverio D Primary Care Unavailable Talampas, Silverio D Referring Unavailable FriendBlue Attending Unavailable Talampas, Silverio D Primary Care Unavailable Leonardo Farr Attending Unavailabl e Mac Whitmore Attending Unavailable Talampas, Silverio D Primary Care Unavailable Talampas, Silverio D Primary Care Unavailable Per Khan Referring Unavailable Per Khan Attending Unavailable Blue Rose Attending Unavailable FriendBlue Referring Unavailable Talampas, Silverio D Primary Care Unavailable FriendBlue Attending Unavailable Talampas, Silverio D Primary Care Unavailable Talampas, Silverio D Referring Unavailable FriendBlue Attending Unavailable Talampas, Silverio D Primary Care Unavailable Talampas, Silverio D Referring Unavailable Blue Rose Consulting Unavailable FriendBlue Attending Unavailable Talampas, Silverio D Primary Care Unavailable Talampas, Silverio D Referring Unavailable Era Ayala Attending Unavailable Talampas, Silverio D Primary Care Unavailable Talampas, Silverio D Primary Care Unavailable Stefano Hood Attending Unavailable Provider, Ed Physician Attending Unavailab le Talampas, Silverio D Primary Care Unavailable EvangelinaMerced Referring Unavailable Evangelina [place] Attending Unavailable Silverio Haley Primary Care Unavailable Sudha ALVARADO, Dr. Silverio Oliver Primary Care Provider Haim GREGG, Dr. Watts Attending Provider Sterlington DO, Dr. Watts Emergency Provider Botello DO, Dr. Fletcher Attending Provider [facility] , Dr. Fletcher Emergency Provider Botello , Dr. Fletcher Referring Provider Sudha ALVARADO, Dr. Silverio Oliver Primary Care Provider Sterlington DO, Dr. Watts Attending Provider Sterlington DO, Dr. Watts Emergency Provider Botello , Dr. Fletcher Attending Provider [facility] , Dr. Fletcher Emergency Provider [facility] , Dr. Fletcher Referring Provider Provider, Ed Physician Emergency Provider Evan Hutchinson CAR ATTENDANT.CLASSROOM TEACHER [place] Unavailable Unavailable Primary Care Provider UnavailSilverio Whalen Primary Care Provider JEAN, NIKHIL E Admitting Unavailable JEAN, NIKHIL E Primary Care Unavailable JEAN, NIKHIL E Attending Unavailable ISABEL ARIAS Consulting Unavailable ISABEL ARIAS Referring Unavailable CASSIDY, HIRA C Admitting Unavailable CASSIDY, HIRA C Attending Unavailable CASSIDY, HIRA C Primary Care Unavailable PROVIDER, UNKNOWN Consulting Unavailable CHEKO REVELES Primary Care Unavailable CHEKO REVELES Admitting Unavailable CHEKO REVELES Attending Unavailable ISABEL ARIAS Consulting Unavailable ISABEL ARIAS Referring Unavailable PROVIDER, UNKNOWN Consulting Unavailable JEAN, NIKHIL E Primary Care Unavailable JEAN, NIKHIL E Admitting Unavailable ISABEL ARIAS Consulting Unavailable JEAN, NIKHIL E Attending Unavailable ISABEL ARIAS Referring Unavailable PROVIDER, UNKNOWN Consulting Unavailable JEAN, NIKHIL E Primary Care Unavailable JEAN, NIKHIL E Admitting Unavailable JEAN, NIKHIL E Attending Unavailable JEAN, NIKHIL E Primary Care Unavailable JEAN, NIKHIL E Admitting Unavailable JEAN, NIKHIL E Attending Unavailable ULYSSES, ISABEL PA Consulting Unavailable ULYSSES, ISABEL PA Referring Unavailable PROVIDER, UNKNOWN Consulting Unavailable ED GAUTHIER DO Admitting Unavailable ED GAUTHIER DO Attending Unavailable ULYSSES ISABEL PA Consulting Unavailable ED GAUTHIER DO Primary Care Unavailable ULYSSES, ISABEL PA Referring Unavailable PROVIDER, UNKNOWN Consulting Unavailable JEAN, NIKHIL E Admitting Unavailable SILVERIO HALEY MD Consulting Unavailable JEAN, NIKHIL E Attending Unavailable JEAN, NIKHIL E Primary Care Unavailable SILVERIO HALEY MD Referring Unavailable PROVIDER, UNKNOWN Consulting Unavailable ALICE OSWALD DO Primary Care Unavailable ALICE OSWALD DO Admitting Unavailable ALICE OSWALD DO Attending Unavailable ULYSSES, ISABEL PA Consulting Unavailable ARIAS, ISABEL PA Referring Unavailable PROVIDER, UNKNOWN Consulting Unavailable HIRA CASSIDY Admitting Unavailable ARIAS, ISABEL PA Consulting Unavailable HIRA CASSIDY Attending Unavailable ULYSSES, ISABEL PA Referring Unavailable HIRA CASSIDY Primary Care Unavailable PROVIDER, UNKNOWN Consulting Unavailable ED GAUTHIER DO Primary Care Unavailable ED GAUTHIER DO Admitting Unavailable ED GAUTHIER DO Attending Unavailable ULYSSES, ISABEL PA Consulting Unavailable ULYSSES, ISABEL PA Referring Unavailable PROVIDER, UNKNOWN Consulting Unavailable CHEKO REVELES Admitting Unavailable CHEKO REVELES Attending Unavailable CHEKO REVELES Primary Care Unavailable SILVERIO HALEY MD Consulting Unavailable SILVERIO HALEY MD Referring Unavailable PROVIDER, UNKNOWN Consulting Unavailable WILFRIDO ARREOLA MD Admitting Unavailable WILFRIDO ARREOLA MD Attending Unavailable WILFRIDO ARREOLA MD Primary Care Unavailable CSERNYIK, RAN DO Admitting Unavailable CSERNYIK, RAN DO Attending Unavailable JESUSITARNYIK, RAN DO Primary Care Unavailable LARA RODRIGUEZ MD Attending Unavailable LARA RODRIGUEZ MD Primary Care Unavailable ULYSSES, ISABEL PA Consulting Unavailable LARA RODRIGUEZ MD Admitting Unavailable ULYSSES, ISABEL PA Referring Unavailable PROVIDER, UNKNOWN Consulting Unavailable LARA RODRIGUEZ MD Admitting Unavailable LARA RODRIGUEZ MD Attending Unavailable LARA RODRIGUEZ MD Primary Care Unavailable ULYSSES, ISABEL PA Consulting Unavailable ULYSSES, ISABEL PA Referring Unavailable PROVIDER, UNKNOWN Consulting Unavailable LARA RODRIGUEZ MD Attending Unavailable LARA RODRIGUEZ MD Primary Care Unavailable LARA RODRIGUEZ MD Admitting Unavailable SILVERIO HALEY MD Referring Unavailable SILVERIO HALEY MD Consulting Unavailable PROVIDER, UNKNOWN Consulting Unavailable ALICE OSWALD DO Admitting Unavailable ALICE OSWALD DO Attending Unavailable ALICE OSWALD DO Primary Care Unavailable ESTRELLITA MOTTA DO Admitting Unavailable ESTRELLITA MOTTA DO Attending Unavailable ISABEL ARIAS Consulting Unavailable ESTRELLITA MOTTA DO Primary Care Unavailable ISABEL ARIAS Referring Unavailable PROVIDER, UNKNOWN Consulting Unavailable Newton CAR ATTENDANT.ORE WASHER, Gretchen Unavailable Newton CAR ATTENDANT.ORE WASHER, Gretchen Unavailable [phone] SUDHA ALVARADO, DR SAWYER Primary Care Unavailable KAREY GILMORE MD Attending Unavailable SUDHA ALVARADO, DR SAWYER Primary Care Unavailable BEATRIZ ALVARADO, ETHAN Shannon Attending Unavail able SUDHA ALVARADO, DR SAWYER Primary Care Unavailable MACKENZIE BEE DO Attending Unavailable SUDHA ALVARADO, DR SAWYER Primary Care Unavailable SUZETTE ALVARADO, DR WARD Attending Unavailabl bernard HALEY MD, DR SAWYER Primary Care Unavailable BEATRIZ ALVARADO, ETHAN Shannon Attending Unavail able SUDHA ALVARADO, DR SAWYER Primary Care Unavailable TAMI TRISTAN DO Attending Unavailable SUNNY STORY Attending Unavailabl e TALAMPAS, SILVERIO, Primary Care Unavailable TALAMPAS, SILVERIO, Primary Care Unavailable DAMION SILVA Attending Unavailable TALAMPAS, SILVERIO, Primary Care Unavailable MARCELINO ALBERT Primary Care Unavailable MARIE AGUIAR Attending Unavailable FAN WESLEY Attending Unavailable TALAMPAS, SILVERIO, Primary Care Unavailable TALAMPAS, SILVERIO, Primary Care Unavailable EMILIANO WHITE Attending Unavailable SUNNY STORY Attending Unavailabl e TALAMPAS, SILVERIO, Primary Care Unavailable TALAMPAS, SILVERIO Primary Care Unavailable TALAMPAS, SILVERIO Attending Unavailable TALAMPAS, SILVERIO Primary Care Unavailable TALAMPAS, SILVERIO Attending Unavailable TALAMPAS, SILVERIO Attending Unavailable TALAMPAS, SILVERIO Primary Care Unavailable ROBBIN HERNANDEZ Attending Unavailable TALAMPAS, SILVERIO Primary Care Unavailable TALAMPAS, SILVERIO Primary Care Unavailable ROBBIN HERNANDEZ Attending Unavailable TALAMPAS, SILVERIO Primary Care Unavailable MERCED HUTCHINSON Attending Unavailable TALAMPAS, SILVERIO Primary Care Unavailable TALAMPAS, SILVERIO Primary Care Unavailable JAJA CHAHAL Attending Unavailable TALAMPAS, SILVERIO Primary Care Unavailable GRETCHEN NEWTON Attending Unavailable TALAMPAS, SILVERIO Primary Care Unavailable TALAMPAS, SILVERIO Attending Unavailable TALAMPAS, SILVERIO Primary Care Unavailable TALAMPAS, SILVERIO Attending Unavailable TALAMPAS, SILVERIO Primary Care Unavailable TALAMPAS, SILVERIO Primary Care Unavailable JONATHAN BRUCE Referring Unavailable JAJA CHAHAL Attending Unavailable TALAMPAS, SILVERIO Primary Care Unavailable TALAMPAS, SILVERIO Attending Unavailable TALAMPAS, SILVERIO Primary Care Unavailable TALAMPAS, SILVERIO Primary Care Unavailable TALAMPAS, SILVERIO Primary Care Unavailable SELF Referring Unavailable MINI DUENAS Attending Unavailable SELF Referring Unavailable TALAMPAS, SILVERIO Attending Unavailable TALAMPAS, SILVERIO Primary Care Unavailable SELF Referring Unavailable MERCED HUTCHINSON Attending Unavailable TALAMPAS, SILVERIO Primary Care Unavailable Allergies Allergy Classification Reported Allergen(s) Allergy Type Date of Onset Reaction(s) Facility Anticholinergics (1 source) Dicyclomine Drug Allergy 04-01-20 23 Hives [facility] Aspirin (1 source) Aspirin Drug Allergy 05-26-20 19 Unknown [facility] Cephalosporins (antibiotic) (1 source) Cephalexin Drug Allergy 10-20-19 20 Itching [facility] Chlorhexidine (1 source) Chlorhexidine Drug Allergy 10-29-19 17 Rash [facility] Iodine (and Iodine containting drugs) (1 source) Iodine Drug Allergy 05-17-20 08 Shortness of Breath [facility] NSAIDs (2 sources) Ibuprofen Drug Allergy 06-18-20 16 GI Upset, Rash [facility] Penicillins (antibiotic) (1 source) Penicillins Drug Allergy 12-08-19 10 Rash [facility] Quinolones (antibiotic) (1 source) Ciprofloxacin Drug Allergy 01-19-20 24 Rash [facility] Work Phone: (17 sources) Contrast media; Translations: [iodinated radiocontrast agents] Allergy to substance [facility] (20 sources) Ibuprofen; Translations: [ibuprofen] Drug Allergy 06-18-20 16 GI Upset [facility] (20 sources) Ketorolac; Translations: [ketorolac] Drug Allergy 05-25-20 20 Rash [facility] (20 sources) metroNIDAZOLE; Translations: [metronidazole] Drug Allergy 04-11-20 15 Shortness Of Breath, Hives [facility] Work Phone: (17 sources) Penicillin; Translations: [penicillins] Drug Allergy [facility] (20 sources) Promethazine; Translations: [promethazine] Drug Allergy 05-26-20 19 Unknown, [facility] (20 sources) Naproxen; Translations: [naproxen] Drug Allergy 02-25-20 25 [facility] (20 sources) Ondansetron; Translations: [ondansetron] Drug Allergy 12-01-19 24 Unknown [facility] (6 sources) Aluminum aspirin; Translations: [ASPIRIN] Drug Allergy 04-11-20 15 Itching [facility] (20 sources) Chlorhexidine; Translations: [CHLORHEXIDINE] Drug Allergy 10-29-19 17 Rash [facility] Work Phone: (3 sources) HYDROmorphone Drug Allergy 08-08-20 15 Hives [facility] (20 sources) Iodine; Translations: [IODINE] Drug Allergy 05-17-20 08 Shortness Of Breath [facility] (12 sources) Penicillins; Translations: [PENICILLINS] Propensity to adverse reactions to drug 12-08-19 10 Rash [facility] (5 sources) Gadolinium Derivatives Propensity to adverse reactions to drug 08-08-20 15 Other (See Comments) [facility] (20 sources) Aspirin; Translations: [aspirin] Drug Allergy 05-26-20 19 Unknown [facility] (4 sources) Contrast media Allergy to substance 09-15-19 22 Anaphylaxis [facility] Work Phone: (5 sources) Contrast media Allergy to substance 09-15-19 22 Anaphylaxis [facility] (20 sources) Ketorolac; Translations: [ketorolac tromethamine] Drug Allergy 09-15-19 22 Rash [facility] (20 sources) Cephalexin; Translations: [CEPHALEXIN] Drug Allergy 10-20-19 20 Itching [facility] (2 sources) Penicillins Drug Allergy 12-08-19 10 Rash [facility] Work Phone: (20 sources) predniSONE; Translations: [PREDNISONE] Drug Allergy 06-18-20 16 Other: See Comments [facility] Work Phone: (20 sources) Salicylic Acid; Translations: [SALICYLATES] Drug Allergy 01-28-20 11 Other: See Comments, Itching, Unknown, Other [facility] Work Phone: (20 sources) traMADol; Translations: [TRAMADOL] Drug Allergy 05-25-20 20 Rash [facility] (20 sources) Penicillins Drug Allergy 12-08-19 10 [facility] Work Phone: (20 sources) Salicylate product Drug Allergy 01-28-20 11 Other: See Comments [facility] Work Phone: (20 sources) Penicillins Allergy to substance 07-29-20 22 [facility] (20 sources) Triiodobenzoic Acids; Translations: [IODINATED CONTRAST MEDIA] Allergy to substance 11-19-19 23 Anaphylaxis, Shortness of breath [facility] Comment on above: CT [facility] (20 sources) Dicyclomine; Translations: [DICYCLOMINE] Drug Allergy 04-01-20 23 [facility] (20 sources) Iodinated Contrast Media Drug Allergy 02-10-20 23 Anaphylaxis [facility] (20 sources) Ciprofloxacin; Translations: [CIPROFLOXACIN] Drug Allergy 01-19-20 24 Rash [facility] (20 sources) fentaNYL; Translations: [fentanyl] Drug Allergy 11-18-19 Shortness of breath [facility] Comment on above: SOB, HIVES (1 source) Aspirin Drug Allergy 11-23-19 25 [facility] (1 source) Dicyclomine Drug Allergy 11-23-19 [facility] (1 source) fentaNYL Drug Allergy 11-23-19 [facility] (1 source) metroNIDAZOLE Drug Allergy 11-23-19 [facility] (1 source) Penicillins Drug allergy (disorder) 11-23-19 [facility] (1 source) Iodinated Contrast Media Drug allergy (disorder) 11-23-19 25 [facility] (20 sources) Non-steroidal anti-inflammatory agent Propensity to adverse reactions 12-13-19 25 [facility] (20 sources) Penicillins Propensity to adverse reactions 12-13-19 25 [facility] (8 sources) Penicillins Drug Allergy 12-08-19 10 Rash [facility] (17 sources) Gadolinium Derivatives Propensity to adverse reactions 08-08-20 15 [facility] (1 source) Aspirin Drug Allergy [facility] Repository (1 source) Dicyclomine Drug Allergy [facility] (1 source) fentaNYL Drug Allergy [facility] (1 source) Ibuprofen Drug Allergy [facility] (1 source) Ketorolac Drug Allergy [facility] (1 source) metroNIDAZOLE Drug Allergy [facility] Rep[facility] (1 source) Penicillins Drug allergy (disorder) [facility] Rep[facility] (1 source) CONTRAST MEDIA, IODINE RELATED Drug allergy (disorder) [facility] Repository Medications Current Medications Medication Drug Class(es) Dates Sig (Normalized) Sig (Original) acetaminophen 325 mg / HYDROcodone bitartrate 5 mg oral tablet (20 sources) Opioid Agonist Start: 12-05-2024 End: 12-17-2024 HYDROcodone-acetam inophen (Acushnet) 5-325 MG tablet Dose = 1 tab(s), Oral, q6h, PRN for pain, tab(s), 0 Refill(s), 95.1 12/05/2024 Active Start: 01-01-2024 End: 01-08-2024 take 1 tablet by mouth every eight hours as needed for pain HYDROcodone-acetaminophen (NORCO) 5-325 mg per tablet Indications: Chronic pancreatitis, unspecified pancreatitis type (HCC) Take 1 tablet by mouth every 8 hours as needed for pain for up to 7 days. 21 tablet 0 01/01/2024 01/08/2024 Start: 10-25-2023 End: 12-03-2023 Hydrocodone-Acetaminophen 5- 325 mg tablet Discontinued 1 {tbl} PO EVERY 4 HOURS NEEDED as needed for Pain 8 October 25, 2023 December 03, 2023 5:03pm Start: 10-25-2023 End: 12-03-2023 take 1 tablet by mouth every four hours as needed Hydrocodone-Acetaminophen Discontinued 1 TABLET PO EVERY 4 HOURS NEEDED 8 October 25, 2023 December 03, 2023 5:03pm Start: 04-01-2023 End: 10-25-2023 Hydrocodone-Acetaminophen 5- 325 mg tablet Discontinued 1 {tbl} PO EVERY 6 HOURS NEEDED as needed for Pain 10 April 01, 2023 October 25, 2023 5:52pm Start: 04-01-2023 End: 10-25-2023 take 1 tablet by mouth every six hours as needed Hydrocodone-Acetaminophen Discontinued 1 TABLET PO EVERY 6 HOURS NEEDED 10 April 01, 2023 October 25, 2023 5:52pm Start: 03-16-2023 End: 03-19-2023 Acushnet 325- 5 mg oral tablet Dose = 1 tab(s), Oral, QID, PRN Pain, scale 4-6, X 3 day(s), # 12 tab(s), 0 Refill(s), Pharmacy: [facility]/pharmacy #[id number], Acute pancreatitis, 155, cm, 03/15/23 11:21:00 EDT, Height, 92 Start Date: 03/16/23 Stop Date: 03/19/23 Status: Ordered Start: 01-19-2023 End: 01-24-2023 take 1 tablet by mouth every eight hours as needed for pain HYDROcodone-acetaminophen (NORCO) 5-325 mg per tablet Indications: Open wound of left breast, subsequent encounter Take 1 tablet by mouth every 8 hours as needed for pain for up to 5 days. 15 tablet 0 01/19/2023 01/24/2023 Active Start: 10-12-2022 End: 10-15-2022 take 1 tablet by mouth every six hours as needed for pain Acushnet 325- 5 mg oral tablet Dose = 1 tab(s), Oral, q6h, PRN as needed for pain, # 12 tab(s), 0 Refill(s), Kidney stone, 93.3 Start Date: 10/12/22 Stop Date: 10/15/22 Status: Ordered Start: 09-13-2021 End: 09-16-2021 take 1 tablet by mouth every six hours as needed for pain Acushnet 325- 5 mg oral tablet Dose = 1 tab(s), Oral, q6h, PRN as needed for pain, # 12 tab(s), 0 Refill(s), Abdominal pain, 91 Start Date: 09/13/21 Stop Date: 09/16/21 Status: Ordered Start: 08-16-2021 End: 08-19-2021 take 1 tablet by mouth every six hours Acushnet 325- 5 mg oral tablet Dose = 1 tab(s), Oral, q6h, # 12 tab(s), 0 Refill(s), Cellulitis, 91 Start Date: 08/16/21 Stop Date: 08/19/21 Status: Ordered Start: 06-14-2021 take 1 tablet by nick th every six hours Hydrocodone-Acetaminophen Active 1 TABLE T PO EVERY 6 HOURS 10 June 14, 2021 Start: 01-04-2020 End: 01-06-2020 Hydrocodone-Acetaminophen 1 TABLET tablet Discontinued 1 {tbl} PO EVERY 4 HOURS NEEDED as needed for Pain 10 January 04, 2020 January 05, 2020 12:00am January 06, 2020 12:02am Start: 01-04-2020 End: 01-06-2020 take 1 tablet by mouth every four hours as needed Hydrocodone-Acetaminophen Discontinued 1 TABLET PO EVERY 4 HOURS NEEDED 10 January 04, 2020 January 06, 2020 12:02am Start: 09-02-2019 End: 09-05-2019 Hydrocodone-Acetaminophen 1 TABLET tablet Discontinued 1 {tbl} PO EVERY 6 HOURS NEEDED as needed for Pain 10 September 02, 2019 September 04, 2019 1:00am September 05, 2019 1:08am Start: 09-02-2019 End: 09-05-2019 take 1 tablet by mouth every six hours as needed Hydrocodone-Acetaminophen Discontinued 1 TABLET PO EVERY 6 HOURS NEEDED 10 September 02, 2019 September 05, 2019 1:08am Start: 04-18-2019 End: 04-23-2019 Hydrocodone-Acetaminophen 1 TABLET tablet Discontinued 1 {tbl} PO EVERY 6 HOURS NEEDED as needed for Pain 10 April 18, 2019 April 20, 2019 12:00am April 23, 2019 12:10am Start: 04-18-2019 End: 04-23-2019 take 1 tablet by mouth every six hours as needed Hydrocodone-Acetaminophen Discontinued 1 TABLET PO EVERY 6 HOURS NEEDED 06 16April 18, 2019 April 23, 2019 12:10am Start: 03-29-2019 End: 04-02-2019 Hydrocodone-Acetaminophen 1 TABLET tablet Discontinued 1 {tbl} PO EVERY 6 HOURS NEEDED as needed for Pain 10 March 29, 2019 March 31, 2019 12:00am April 02, 2019 12:09am Start: 03-29-2019 End: 04-02-2019 take 1 tablet by mouth every six hours as needed Hydrocodone-Acetaminophen Discontinued 1 TABLET PO EVERY 6 HOURS NEEDED 06 16March 29, 2019 April 02, 2019 12:09am Start: 02-19-2019 End: 02-22-2019 Hydrocodone-Acetaminophen 1 TABLET tablet Discontinued 1 {tbl} PO EVERY 6 HOURS NEEDED as needed for Pain 08 16February 19, 2019 12:00am February 21, 2019 12:00am February 22, 2019 12:07am Start: 02-19-2019 End: 02-22-2019 take 1 tablet by mouth every six hours as needed Hydrocodone-Acetaminophen Discontinued 1 TABLET PO EVERY 6 HOURS NEEDED 08 16February 19, 2019 12:00am February 22, 2019 12:07am Start: 09-10-2018 End: 09-13-2018 Hydrocodone-Acetaminophen 1 TABLET tablet Discontinued 1 {tbl} PO EVERY 6 HOURS NEEDED as needed for Pain 01 12September 10, 2018 1:00am September 12, 2018 1:00am September 13, 2018 1:09am Start: 09-10-2018 End: 09-13-2018 take 1 tablet by mouth every six hours as needed Hydrocodone-Acetaminophen Discontinued 1 TABLET PO EVERY 6 HOURS NEEDED 01 12September 10, 2018 1:00am September 13, 2018 1:09am Start: 06-26-2018 End: 06-29-2018 Hydrocodone-Acetaminophen 1 TABLET tablet Discontinued 1 {tbl} PO EVERY 6 HOURS NEEDED as needed for Pain 08 16June 26, 2018 12:00am June 28, 2018 12:00am June 29, 2018 12:08am Start: 06-26-2018 End: 06-29-2018 take 1 tablet by mouth every six hours as needed Hydrocodone-Acetaminophen Discontinued 1 TABLET PO EVERY 6 HOURS NEEDED 08 16June 26, 2018 12:00am June 29, 2018 12:08am Comment on above: Take 1 tablet by nick th every 8 hours as needed for pain for up to 5 days. acetaminophen 325 mg / oxyCODONE hydrochloride 5 mg oral tablet (20 sources) Opioid Agonist Start: 02-24-2025 End: 02-27-2025 take 1 tablet by mouth every six hours as needed for pain oxyCODONE-acetamino phen (Percocet) 5-325 MG tablet Indications: Lower abdominal pain Take 1 tablet by mouth every 6 hours as needed for severe pain (7-10) for up to 3 days. 12 tablet 02/24/2025 02/27/2025 Active Start: 12-17-2024 End: 12-20-2024 take 1 tablet by mouth every six hours as needed for pain oxyCODONE-acetaminophen (Percocet) 10-32 5 MG tablet Indications: Abdominal pain, unspecified abdominal location Take 1 tablet by mouth every 6 hours as needed for severe pain (7-10) for up to 3 days. 12 tablet 12/17/2024 12/20/2024 Active Start: 12-12-2024 End: 12-12-2024 1 tablet, Oral, Once, On Thu12/12/24 at 1650, For 1 dose, Maximum dose of acetaminophen is 4000 mg from all sources in 24 hours. Start: 12-15-2020 End: 12-18-2020 Oxycodone-Acetaminophen 1 TA BLET tablet Discontinued 1 {tbl} PO EVERY 6 HOURS NEEDED as needed for Pain 08 16December 15, 2020 December 17, 2020 12:00am December 18, 2020 12:04am Start: 12-15-2020 End: 12-18-2020 take 1 tablet by mouth every six hours as needed Oxycodone-Acetaminophen Discontinued 1 TABLET PO EVERY 6 HOURS NEEDED 08 16December 15, 2020 December 18, 2020 12:04am Start: 06-17-2020 End: 06-20-2020 Oxycodone-Acetaminophen 1 TA BLET tablet Discontinued 1 {tbl} PO EVERY 6 HOURS NEEDED as needed for Pain 08 16June 17, 2020 June 19, 2020 12:00am June 20, 2020 12:02am Start: 06-17-2020 End: 06-20-2020 take 1 tablet by mouth every six hours as needed Oxycodone-Acetaminophen Discontinued 1 TABLET PO EVERY 6 HOURS NEEDED 08 16June 17, 2020 June 20, 2020 12:02am Start: 04-27-2020 End: 04-30-2020 Oxycodone-Acetaminophen 1 TA BLET tablet Discontinued 1 {tbl} PO EVERY 6 HOURS NEEDED as needed for Pain 08 16April 27, 2020 April 29, 2020 12:00am April 30, 2020 12:02am Start: 04-27-2020 End: 04-30-2020 take 1 tablet by mouth every six hours as needed Oxycodone-Acetaminophen Discontinued 1 TABLET PO EVERY 6 HOURS NEEDED 08 16April 27, 2020 April 30, 2020 12:02am Start: 09-05-2019 End: 09-08-2019 take 1 tablet by mouth every four hours as needed for pain oxyCODONE-acetaminophen (PERCOCET) 5-325 MG per tablet Indications: Pelvic pain in female Take 1 tablet by mouth every 4 hours as needed for Pain for up to 3 days. 10 tablet 0 09/05/2019 09/05/2019 Discontinued Start: 09-04-2019 oxyCODONE-acet aminophen (PERCOCET) 5-325 MG per tablet 1 tablet [id number] actuat albuterol 0.09 mg/actuat metered dose inhaler (20 sources) beta2-Adrenergic Agonist Start: 06-16-2024 take 2 puff(s) by inhalation every four hours as needed for wheezing albuterol HFA (VENTOLIN HFA) 90 mcg/actuation inhaler Indications: Acute cough , Upper respiratory infection with cough and congestion Inhale 2 Puffs as instructed every 4 hours as needed for wheezing/shortness of breath. 1 Each 06/16/2024 Active Start: 07-22-2022 End: 12-01-2023 take 2 puff(s) by inhalation every four hours as needed for wheezing albuterol HFA (VENTOLIN HFA) 90 mcg/actuation inhaler Indications: Acute cough , Upper respiratory infection with cough and congestion Inhale 2 Puffs as instructed every 4 hours as needed for wheezing/shortness of breath. 1 Each 1 07/22/2022 12/01/2023 Discontinued Comment on above: Inhale 2 Puffs as in structed every 4 hours as needed for wheezing/shortness of breath. albuterol MDI (90 mcg/inh) CFC free inhalation aerosol (7 sources) Start: 023 take 1 puff(s) by inhalation every four hours as needed for wheezing albuterol MDI (90 mcg/inh) CFC free inhalation aerosol 1 puff(s), Inhalation, q4h, PRN as needed for wheezing, # 18 gram(s), 0 Refill(s) Start Date: 02/20/23 Status: Ordered Quantity: 18.0 Unit: g Repeat number: 1 Start: 02-20-2023 take 1 puff(s) by in halation every four hours as needed for wheezing albuterol MDI (90 mcg/inh) CFC free inhalation aerosol 1 puff(s), Inhalation, q4h, PRN as needed for wheezing, # 18 gram(s), 0 Refill(s) Start Date: 02/20/23 Status: Ordered ARIPiprazole 10 mg oral tablet (20 sources) Atypical Antipsychotic Start: 01-15-2023 End: 10-27-2024 take 1 tablet by mouth once daily ARIPiprazole (ABILIFY) 10 mg tablet Indications: Generalized anxiety disorder , Recurrent depressive disorder, current episode moderate (HCC) Take 1 tablet by mouth once daily. From [facility]. 10/27/2024 Active atorvastatin 20 mg oral tablet (20 sources) HMG-CoA Reductase Inhibitor Start: 02-17-2023 End: 12-01-2023 atorvastatin 20 mg oral tablet Dose : 20 mg = 1 tab(s), Oral, qDay, 0 Refill(s) Start Date: 02/20/23 Status: Ordered Repeat number: 1 Start: 06-27-2022 End: 02-17-2023 take 1 tablet by mouth once daily at bedtime for hyperlipidemia atorvastatin (LIPITOR) 10 mg tablet Take 1 tablet by mouth daily at bedtime. For cholesterol. 30 tablet 5 06/27/2022 02/17/2023 Discontinued Comment on above: Take 1 tablet by nick th daily at bedtime. For cholesterol. azithromycin 250 mg oral tablet (5 sources) Macrolide Antimicrobial Start: 06-16-20 End: 06-20-20 take 2 tablets by mouth once daily, then take 1 tablet by mouth once daily azithromycin (ZITHROMAX) 250 mg tablet Indications: Acute cough , Upper respiratory infection with cough and congestion Take 2 tablets by mouth once daily for 1 day, THEN 1 tablet once daily for 4 days. 6 tablet 06/16/2024 06/20/2024 Active Start: 10-07-2023 End: 10-12-2023 take 2 tablets by mouth once daily, then take 1 tablet by mouth once daily azithromycin (ZITHROMAX) 250 mg tablet Indications: Other acute nonsuppurative otitis media of both ears, recurrence not specified Take 2 tablets by mouth once daily for 1 day, THEN 1 tablet once daily for 4 days. 6 tablet 10/07/2023 10/12/2023 Start: 12-26-2022 End: 12-31-2022 take 2 tablets by mouth once daily, then take 1 tablet by mouth once daily azithromycin (ZITHROMAX) 250 mg tablet Indications: Moderate persistent asthmatic bronchitis with acute exacerbation Take 2 tablets by mouth once daily for 1 day, THEN 1 tablet once daily for 4 days. 6 tablet 0 12/26/2022 12/31/2022 Active Comment on above: Take [address] [facility] once daily for 1 day, THEN 1 tablet once daily for 4 days. B-12 1,000 MCG TABLET (2 sources) Start: 3 B-12 1,000 MCG TABLET B-12 1,000 MCG TABLET, 0 Refill(s), 90.9 Start Date: 01/15/23 Status: Ordered baclofen 10 mg oral tablet (6 sources) gamma-Aminobutyric Acid-ergic Agonist Start: 1 take 10 mg by mouth once daily Baclofen Active 10 MG PO DAILY June 14, 2021 12:00am benzocaine 15 mg / menthol 3.6 mg oral lozenge (12 sources) Standardized Chemical Allergen Start: 5 benzocaine-menthol (CEPACOL) 15-3.6 mg lozg Use 1 Lozenge as instructed every 2 hours as needed. 60 Lozenge 11/04/2024 Active cefdinir 300 mg oral capsule (2 sources) Cephalosporin Antibacterial Start: End: take 1 capsule by mouth twice daily cefdinir (OMNICEF) 300 mg capsule Take 1 capsule by mouth two times a day for 10 days. 20 capsule 10/18/2024 10/28/2024 Active cephalexin 500 mg oral capsule (9 sources) Cephalosporin Antibacterial Start: 5 End: cephalexin 500 mg oral capsule Dose : 500 mg = 1 cap(s), Oral, q12h, X 7 day(s), # 14 cap(s), 0 Refill(s), 02/26/25 12:35:00 PM EDT, 95.1 Start Date: 02/19/25 Stop Date: 02/26/25 Status: Ordered Quantity: 14.0 Unit: cap(s) Repeat number: 1 Start: 10-12-2022 End: 10-19-2022 cephalexin 500 mg oral capsu le Dose : 500 mg = 1 cap(s), Oral, BID, # 14 cap(s), 0 Refill(s), Kidney stone, 93.3 Start Date: 10/12/22 Stop Date: 10/19/22 Status: Ordered Start: 08-16-2021 End: 08-23-2021 cephalexin 500 mg oral capsu le Dose : 500 mg = 1 cap(s), Oral, QID, X 7 day(s), # 28 cap(s), 0 Refill(s), 08/23/21 16:25:00 EST, Cellulitis, 91 Start Date: 08/16/21 Stop Date: 08/23/21 Status: Ordered cholecalciferol 0.05 mg oral capsule (20 sources) Vitamin D Start: 06-10-2024 take 1 capsule by mouth once daily Cholecalciferol, Vitamin D3, 50 mcg (2,000 unit) cap Indications: Vitamin D deficiency Take 1 capsule by mouth once daily. 30 capsule 11 06/10/2024 Active Start: 02-20-2023 cholecalcifero l 125 mcg (5000 intl units) oral capsule Dose : 125 mcg = 1 cap(s), Oral, qDay, 0 Refill(s) Start Date: 02/20/23 Status: Ordered Repeat number: 1 Start: 02-20-2023 cholecalcifero l 125 mcg (5000 intl units) oral capsule Dose : 125 mcg = 1 cap(s), Oral, qDay, 0 Refill(s) Start Date: 02/20/23 Status: Ordered Start: 02-17-2023 End: 06-10-2024 take 1 capsule by mouth once daily Cholecalciferol, Vitamin D3, 125 mcg (5,000 unit) cap Take 1 capsule by mouth once daily. 90 capsule 2 02/17/2023 06/10/2024 Discontinued Start: 06-30-2022 End: 02-17-2023 take 1 capsule by mouth every week cholecalciferol, Vitamin D3, (VITAMIN D3) 1,250 mcg (50,000 unit) cap capsule Take 1 capsule by mouth one time a week. 12 capsule 0 06/30/2022 02/17/2023 Discontinued Comment on above: Take 1 capsule by mo uth one time a week. Take 1 capsule by mo uth once daily. ciprofloxacin 500 mg oral tablet (6 sources) Quinolone Antimicrobial Start: 06-13-20 take 1 tablet by mouth twice daily Ciprofloxacin Hcl 500 mg tablet Active 500 mg PO TWICE A DAY 10 June 13, 2024 12:00am Start: 01-16-2024 End: 02-23-2024 take 1 tablet by mouth twice daily Ciprofloxacin Hcl 500 mg tablet Discontinued 500 mg PO TWICE A DAY January 16, 2024 12:00am February 23, 2024 9:57am clindamycin 150 mg oral capsule (20 sources) Lincosamide Antibacterial Start: 03-11-2024 End: 03-16-2024 take 3 capsules by mouth three times daily clindamycin (CLEOCIN) 150 mg capsule Take 3 capsules by mouth three times a day for 5 days. 45 capsule 0 03/11/2024 03/16/2024 Active Start: 06-06-2023 End: 10-25-2023 take 2 capsules by mouth four times daily Clindamycin Hcl 150 mg capsule Discontinued 300 mg PO 4 TIMES DAILY 80 June 06, 2023 12:00am October 25, 2023 5:52pm Start: 06-06-2023 End: 10-25-2023 take 2 capsules by mouth every eight hours Clindamycin Hcl (Cleocin Hcl) 150 mg capsule Discontinued 300 mg PO Q8H 60 June 06, 2023 12:00am October 25, 2023 5:52pm Start: 06-06-2023 End: 10-25-2023 take 300 mg by mouth four times daily Clindamycin Hcl Discontinued 300 MG PO 4 TIMES DAILY 80 June 06, 2023 12:00am October 25, 2023 5:52pm Start: 01-21-2023 End: 01-31-2023 clindamycin 300 mg oral caps ule Dose : 300 mg = 1 cap(s), Oral, q6h, X 10 day(s), # 40 cap(s), 0 Refill(s), 01/31/23 15:59:00 EDT, Wound of left breast, 97.7 Start Date: 01/21/23 Stop Date: 01/31/23 Status: Ordered Start: 09-08-2022 End: 09-13-2022 take 3 capsules by mouth three times daily clindamycin (CLEOCIN) 150 mg capsule Take 3 capsules by mouth three times daily for 5 days. 45 capsule 0 09/08/2022 09/13/2022 Start: 04-10-2021 take 300 mg by mouth four times daily Clindamycin Hcl Active 300 MG PO 4 TIMES DAILY April 09, 2021 11:00pm Comment on above: Take 3 capsules by m outh three times daily for 5 days. colestipol hydrochloride 1000 mg oral tablet (20 sources) Bile Acid Sequestrant Start: 12-08-19 25 take 1 tablet by mouth twice daily colestipol (COLESTID) 1 gram tablet Take 1 tablet by mouth two times a day. 60 tablet 5 12/07/2024 Active cyclobenzaprine hydrochloride 10 mg oral tablet (20 sources) Muscle Relaxant Start: 07-20-20 End: 10-03-19 25 take 1 tablet by mouth three times daily as needed for muscle spasms Cyclobenzaprine 10 mg tablet Active 10 mg PO THREE TIMES A DAY as needed for Muscle Spasm August 21, 2024 1:00am Start: 01-04-2020 End: 01-16-2020 take 1 tablet by mouth three times daily as needed for muscle spasms Cyclobenzaprine 10 MG tablet Discontinued 10 mg PO THREE TIMES A DAY as needed for Muscle Spasm January 04, 2020 12:00am January 16, 2020 9:22am Start: 11-19-2019 End: 12-14-2019 Cyclobenzaprine 10 MG tablet Discontinued 10 mg PO NEEDED as needed for MUSCLE SPASMS November 19, 2019 1:00am December 14, 2019 10:39am diazePAM 5 mg oral tablet (6 sources) Benzodiazepine Start: 12-29-2024 diazePAM (Rafi um) 5 MG tablet Indications: Pelvic pain in female Place one table vaginally nightly as needed for pelvic muscle spasm 10 tablet 12/29/2024 Active dicyclomine hydrochloride 20 mg oral tablet (6 sources) Anticholinergic Start: 04-10-2022 take 20 mg by mouth twice daily Dicyclomine Active 20 MG PO TWICE A DAY April 10, 2022 12:00am Start: 06-06-2021 End: 09-04-2021 take 1 capsule by mouth at bedtime dicyclomine (BENTYL) 10 mg capsule Take 1 capsule by mouth before meals and at bedtime. 120 capsule 2 06/06/2021 09/04/2021 diphenhydrAMINE hydrochloride 25 mg oral capsule (20 sources) Histamine-1 Receptor Antagonist Start: 05-25-2024 take 1 capsule by mouth at bedtime Diphenhydramine Hcl (Allergy (Diphenhydramine)) 25 mg capsule Active 25 mg PO AT BEDTIME May 25, 2024 12:00am Start: 12-03-2023 End: 02-23-2024 take 1 capsule by mouth at bedtime Diphenhydramine Hcl (Banophen) 25 mg capsule Discontinued 25 mg PO AT BEDTIME December 03, 2023 12:00am February 23, 2024 9:58am Start: 10-09-2019 diphenhydrAMIN E (BENADRYL) tablet 25 mg Start: 03-29-2019 take 2 capsules by m outh every twenty-four hours as needed diphenhydrAMINE (BENADRYL) 25 mg capsule Take 50 mg by mouth at bedtime as needed. 03/29/2019 Active Comment on above: Take 50 mg by mouth at bedtime as needed. doxycycline hyclate 100 mg oral tablet (20 sources) Tetracycline-clas s Drug Start: 10-17-2024 End: 10-22-2024 take 1 tablet by mouth twice daily doxycycline (VIBRA-TABS) 100 mg tablet Indications: Acute suppurative otitis media of both ears without spontaneous rupture of tympanic membranes, recurrence not specified Take 1 tablet by mouth two times a day for 5 days. 10 tablet 10/17/2024 10/22/2024 Active Start: 09-21-2024 End: 09-28-2024 take 1 capsule by mouth twice daily doxycycline monohydrate (MONODOX) 100 mg capsule Take 1 capsule by mouth two times a day for 7 days. 14 capsule 09/21/2024 09/28/2024 Active Start: 03-31-2024 End: 05-10-2024 take 1 tablet by mouth twice daily Doxycycline Hyclate 100 mg tablet Discontinued 100 mg PO TWICE A DAY April 01, 2024 12:00am May 10, 2024 9:44am Start: 12-16-2023 End: 12-23-2023 take 1 tablet by mouth twice daily doxycycline (VIBRA-TABS) 100 mg tablet Take 1 tablet by mouth two times a day for 7 days. 14 tablet 0 12/16/2023 12/23/2023 Start: 03-09-2023 End: 03-14-2023 take 1 tablet by mouth twice daily doxycycline monohydrate 100 mg tablet Take 1 tablet by mouth twice daily for 5 days. 10 tablet 0 03/09/2023 03/14/2023 Active Start: 01-15-2023 End: 01-22-2023 doxycycline hyclate 100 mg o ral delayed release tablet Dose : 100 mg = 1 tab(s), Oral, BID, X 7 day(s), # 14 tab(s), 0 Refill(s), 01/22/23 11:15:00 EDT, 90.9 Start Date: 01/15/23 Stop Date: 01/22/23 Status: Ordered Start: 07-29-2022 take 100 mg by mouth twice daily Doxycycline Monohydrate Active 100 MG PO TWICE A DAY July 29, 2022 1:00am Start: 07-18-2022 End: 07-28-2022 take 1 tablet by mouth twice daily doxycycline (VIBRA-TABS) 100 mg tablet Take 1 tablet by mouth twice daily for 10 days. 20 tablet 0 07/18/2022 07/28/2022 Active Comment on above: Take 1 tablet by nick twice daily for 10 days. Take 1 tablet by nick twice daily for 5 days. Take 1 tablet by nick two times a day for 7 days. Dulera 200 mcg-5 mcg/inh Metered Dose Inhaler (2 sources) Start: 023 take 1 dose by inhalation twice daily Dulera 200 mcg-5 mcg/inh Metered Dose Inhaler Dose = 2 puff(s), Inhalation, BID, # 13 gram(s), 0 Refill(s) Start Date: 01/15/23 Status: Ordered 0.4 ml enoxaparin sodium 100 mg/ml prefilled syringe (1 source) Low Molecular Weight Heparin Start: inject 40 mg by subcutaneous injection once daily 40 mg, Subcutaneous, DAILY, First dose on 09/03/19 at 1030 [id number] 0.3 ml EPINEPHrine 1 mg/ml auto-injector (14 sources) alpha-Adrenergic Agonist, beta-Adrenergic Agonist, Catecholamine Start: EPINEPHrine (Epipen) 0.3 MG/0.3ML injection syringe As directed 05/10/2024 Active escitalopram 20 mg oral tablet (20 sources) Serotonin Reuptake Inhibitor Start: End: take 1 tablet by mouth once daily escitalopram oxalate (LEXAPRO) 20 mg tablet Indications: Generalized anxiety disorder , Recurrent depressive disorder, current episode moderate (HCC) Take 1 tablet by mouth [facility] daily[facility] 10/27/2024 Active Start: 02-20-2023 Lexapro 10 mg oral tablet Dose : 10 mg = 1 tab(s), Oral, qDay Start Date: 02/20/23 Status: Ordered Repeat number: 1 estradiol 2 mg oral tablet (20 sources) Estrogen Start: 12-21-2024 End: 12-21-2025 take 1 tablet by mouth once daily estradiol (Estrace) 2 MG tablet Take 1 tablet (2 mg) by mouth daily. 30 tablet 11 12/21/2024 12/21/2025 Active Start: 04-03-2023 End: 06-06-2023 take 1 tablet by mouth once daily estradiol (Estrace) 0.5 MG tablet TAKE 1 TABLET BY MOUTH EVERY DAY 30 tablet 06/06/2023 Active Start: 04-05-2021 End: 12-26-2022 take 1 tablet by mouth once daily Estradiol (ESTRACE) 0.5 mg tablet Take 1 tablet by mouth once daily. 09/22/2021 12/26/2022 Discontinued Comment on above: Take 1 tablet by nick once daily. etodolac 400 mg oral tablet (18 sources) Nonsteroidal Anti-inflammatory Drug Start: take 1 tablet by mouth twice daily as needed etodolac (LODINE) 400 mg tablet Indications: Back strain, initial encounter Take 1 tablet by mouth two times a day as needed. 60 tablet 10/03/2024 Active fluconazole 150 mg oral tablet (2 sources) Azole Antifungal Start: End: Diflucan 150 mg oral tablet Dose : 150 mg = 1 tab(s), Oral, qDay, # 1 tab(s), 0 Refill(s), 02/26/25 12:37:00 PM EDT, 95.1 Start Date: 02/19/25 Stop Date: 02/26/25 Status: Ordered Quantity: 1.0 Unit: tab(s) Repeat number: 1 gabapentin 300 mg oral capsule (20 sources) Anti-epileptic Agent Start: End: take 1 capsule by mouth three times daily gabapentin (Neurontin) 300 MG capsule Take 1 capsule (300 mg) by mouth 3 times daily. 90 capsule 5 12/29/2024 06/27/2025 Active Start: 02-20-2023 End: 01-01-2025 take 1 capsule by mouth every twelve hours gabapentin (NEURONTIN) 400 mg capsule Indications: Generalized anxiety disorder , Recurrent depressive disorder, current episode moderate (HCC) Take 1 capsule by mouth every 12 hours for 90 days. 60 capsule 2 10/03/2024 Active Start: 01-27-2022 End: 12-01-2023 take 1 tablet by mouth three times daily gabapentin (NEURONTIN) 800 mg tablet Take 1 tablet by mouth three times daily for 90 days. 90 tablet 2 01/27/2022 08/14/2022 Discontinued Start: 05-07-2021 End: 08-06-2021 take 1 tablet by mouth three times daily gabapentin (NEURONTIN) 800 mg tablet Take 1 tablet by mouth three times daily for 90 days. 90 tablet 2 05/07/2021 08/06/2021 Discontinued Start: 10-03-2020 take 800 mg by mouth three times daily Gabapentin Active 800 MG PO THREE TIMES A DAY October 03, 2020 12:00am Start: 10-07-2019 End: 10-07-2019 gabapentin (NEURONTIN) capsu le 300 mg Start: 11-19-2016 End: 11-20-2020 take 1 capsule by mouth three times daily as needed Gabapentin 400 MG capsule Active 400 mg PO THREE TIMES A DAY as needed for NEUROPATHY October 03, 2020 1:00am Start: 04-23-2016 End: 09-30-2019 gabapentin (NEURONTIN) 300 M G capsule Take 300 mg by mouth 0 04/23/2016 09/30/2019 Discontinued (LIST CLEANUP) Comment on above: Take 1 tablet by nick three times daily for 90 days. TAKE 1 TABLET BY NICK THREE TIMES A DAY Take [address] [facility] every 12 hours. homatropine methylbromide 0.3 mg/ml / HYDROcodone bitartrate 1 mg/ml oral solution (10 sources) Opioid Agonist, Cholinergic Muscarinic Agonist Start: 07-20-2024 End: 08-04-2024 HYDROcodone-homatropin e (HYCODAN, WITH HOMATROPINE,) 5-1.5 mg/5 mL syrup Indications: Acute asthmatic bronchitis Take 5 mL by mouth every 4 hours as needed for cough for up to 7 days. 210 mL 07/28/2024 08/04/2024 Active Start: 07-11-2024 End: 07-18-2024 HYDROcodone-homatropine (HYC ODAN, WITH HOMATROPINE,) 5-1.5 mg/5 mL syrup Indications: Acute asthmatic bronchitis Take 5 mL by mouth every 4 hours as needed for cough for up to 7 days. 210 mL 07/11/2024 07/18/2024 Active Start: 06-30-2024 End: 07-07-2024 HYDROcodone-homatropine (HYC ODAN, WITH HOMATROPINE,) 5-1.5 mg/5 mL syrup Indications: Acute asthmatic bronchitis Take 5 mL by mouth every 4 hours as needed for cough for up to 7 days. Patient should start on June 30, 2024. 210 mL 06/30/2024 07/07/2024 Active Start: 06-21-2024 End: 06-28-2024 HYDROcodone-homatropine (HYC ODAN, WITH HOMATROPINE,) 5-1.5 mg/5 mL syrup Indications: Acute asthmatic bronchitis Take 5 mL by mouth every 4 hours as needed for cough for up to 7 days. 210 mL 06/21/2024 06/28/2024 Discontinued hydrocortisone 10 mg/ml / neomycin 3.5 mg/ml / polymyxin [id number] unt/ml otic suspension (1 source) Aminoglycoside Antibacterial, Polymyxin-class Antibacterial, Corticosteroid Start: 03-11-2024 End: 03-18-2024 guegwkka-scavkxpei-jhxbmmpmo isone (CORTISPORIN) 3.5-10,000-1 mg/mL-unit/mL-% otic suspension Use 3 Drops in the right ear four times daily for 7 days. 10 mL 0 03/11/2024 03/18/2024 Active hydrOXYzine hydrochloride 25 mg oral tablet (20 sources) Antihistamine Start: 04-05-2021 hydrOXYzine hydrochloride 25 mg oral tablet Dose : 25 mg = 1 tab(s), Oral, QID, PRN for itching, # 40 tab(s), 0 Refill(s) Start Date: 04/05/21 Status: Ordered Start: 11-02-2020 End: 01-21-2021 take 2 tablets by mouth three times daily as needed hydrOXYzine HCl (ATARAX) 25 mg tablet TAKE 2 TABLETS BY MOUTH 3 TIMES A DAY NEEDED 11/02/2020 01/21/2021 Discontinued Start: 10-03-2020 End: 12-03-2023 take 1 tablet by mouth at bedtime Hydroxyzine Hcl 50 MG tablet Discontinued 50 mg PO AT BEDTIME October 03, 2020 1:00am December 03, 2023 5:05pm hyoscyamine sulfate 0.125 mg oral tablet (20 sources) Start: 10-04-2024 take 1 tablet by mouth every six hours Hyoscyamine Sulfate (Levsin) 0.125 mg tablet Active 0.125 mg PO EVERY 6 HOURS 16 4 October 04, 2024 1:00am Start: 02-24-2024 take 1 tablet by nick every six hours as needed Hyoscyamine Sulfate 0.125 mg tablet,disintegrating Active 0.125 mg PO EVERY 6 HOURS as needed for abdominal discomfort February 24, 2024 7:45pm Start: 03-31-2023 End: 04-22-2023 take 1 tablet by mouth every four hours as needed for pain hyoscyamine (LEVSIN) 0.125 mg tablet Indications: Right upper quadrant abdominal pain Take 1 tablet by mouth every 4 hours as needed (for pain). 180 tablet 1 03/31/2023 04/22/2023 Discontinued End: 07-28-2024 take 0.125 mg by mouth every four hours hyoscyamine sulfate 0.125 mg ODT Take 0.125 mg by mouth every 4 hours. 07/28/2024 Discontinued (Course of therapy completed) Comment on above: Take 1 tablet by nick th every 4 hours as needed (for pain). LORazepam 0.5 mg oral tablet (20 sources) Benzodiazepine Start: End: take 1 tablet by mouth once daily as needed LORazepam (ATIVAN) 0.5 mg Indications: Generalized anxiety disorder Take 1 tablet by mouth once daily as needed. From [facility]. 0 10/27/2024 Active Start: 02-10-2023 End: 12-03-2023 take 1 tablet by mouth once daily Lorazepam (Ativan) 1 mg Tablet Discontinued 1 mg PO DAILY February 10, 2023 12:00am December 03, 2023 4:44pm magnesium hydroxide 80 mg/ml oral suspension (1 source) Start: 09-03-2019 take 30 mL by mouth once daily as needed for constipation 30 mL, Oral, DAILY PRN, Constipation, Starting 09/03/19 at 1003 First line therapy for constipation. melatonin 1 mg oral tablet (4 sources) Start: 10-07-2019 melatonin tabl et 1 mg Start: 09-03-2019 melatonin tabl et 3 mg mesalamine 1200 mg delayed release oral tablet (20 sources) Aminosalicylate Start: 02-09-2024 take 2 tablets by mouth once daily Mesalamine 1.2 gram tablet,delayed release (DR/EC) Active 2.4 g PO DAILY 60 February 09, 2024 12:00am End: 10-27-2024 Mesalamine (LIALDA) 1.2 gram EC tablet Take 1,200 mg by mouth once daily. 10/27/2024 Discontinued methylPREDNISolone (11 sources) Corticosteroid Start: 03-11-2023 End: 03-17-2023 methylPREDNISolone (MEDROL, JO,) 4 mg Dose-Pack Indications: Acute cough Follow dosing instructions, take with food. 21 tablet 0 03/11/2023 03/17/2023 Active Start: 12-26-2022 End: 01-19-2023 methylPREDNISolone (MEDROL, JO,) 4 mg Dose-Pack Indications: Moderate persistent asthmatic bronchitis with acute exacerbation As Instructed per package 21 tablet 0 12/26/2022 01/19/2023 Discontinued Start: 12-26-2022 methylPREDNISo lone (MEDROL, JO,) 4 mg Dose-Pack Indications: Moderate persistent asthmatic bronchitis with acute exacerbation As Instructed per package 21 tablet 0 12/26/2022 Active Start: 08-04-2022 End: 08-10-2022 methylPREDNISolone (MEDROL, JO,) 4 mg Dose-Pack Follow dosing instructions, take with food. 21 tablet 0 08/04/2022 08/10/2022 Active Start: 05-27-2022 End: 06-02-2022 methylPREDNISolone (MEDROL, JO,) 4 mg Dose-Pack Indications: Subacute cough Follow dosing instructions, take with food. 21 tablet 0 05/27/2022 06/02/2022 Active Comment on above: Follow dosing instru ctions, take with food. As Instructed per chaz farias metoclopramide 10 mg oral tablet (20 sources) Dopamine-2 Receptor Antagonist Start: 12-18-19 End: 12-25-19 take 1 tablet by mouth every six hours metoclopramide (Reglan) 10 MG tablet Take 1 tablet (10 mg) by mouth every 6 hours for 7 days. 28 tablet 12/17/2024 Active Start: 12-17-2024 10 mg, IntraVE Nous, Once, On 12/17/24 at 1230, For 1 dose Start: 02-24-2024 End: 05-25-2024 take 1 tablet by mouth every twelve hours as needed for nausea and vomiting Metoclopramide Hcl 10 mg tablet Discontinued 10 mg PO EVERY 12 HOURS NEEDED as needed for nausea and vomiting February 24, 2024 7:45pm May 25, 2024 2:10pm Start: 12-26-2023 End: 02-23-2024 take 1 tablet by mouth every six hours as needed for nausea and vomiting Metoclopramide Hcl (Reglan) 10 mg tablet Discontinued 10 mg PO EVERY 6 HOURS as needed for nausea and vomiting December 26, 2023 12:00am February 23, 2024 9:58am Comment on above: Take 10 mg by mouth every 6 hours as needed. metroNIDAZOLE 500 mg oral tablet (3 sources) Nitroimidazole Antimicrobial Start: 02-15-20 End: 02-22-20 take 1 tablet by mouth twice daily metroNIDAZOLE (FLAGYL) 500 mg tablet Indications: BV (bacterial vaginosis) Take 1 tablet by mouth two times a day for 7 days. 14 tablet 02/14/2025 02/21/2025 Active Start: 02-14-2025 End: 02-14-2025 take 1 tablet by mouth three times daily metroNIDAZOLE (FLAGYL) 500 mg tablet Indications: BV (bacterial vaginosis) Take 1 tablet by mouth three times a day for 7 days. 21 tablet 02/14/2025 02/14/2025 Discontinued mirtazapine 30 mg oral tablet (9 sources) Start: 10-18-2020 mirtazapine 30 mg oral tablet Dose : 30 mg = 1 tab(s), Oral, qHS, # 30 tab(s), 0 Refill(s) Start Date: 10/18/20 Status: Ordered montelukast 10 mg oral tablet (20 sources) Leukotriene Receptor Antagonist Start: 12-30-2022 End: 12-01-2023 montelukast 10 mg oral tablet Dose : 10 mg = 1 tab(s), Oral, qHS, 0 Refill(s) Start Date: 01/15/23 Status: Ordered Repeat number: 1 Comment on above: Take 1 tablet by nick th daily at bedtime. mupirocin 20 mg/ml topical cream (2 sources) RNA Synthetase Inhibitor Antibacterial Start: 01-15-2023 End: 01-22-2023 mupirocin 2% topical cream Apply 1 mini, Topical, TID, X 7 day(s), # 15 gram(s), 0 Refill(s), 90.9 Start Date: 01/15/23 Stop Date: 01/22/23 Status: Ordered nirmatrelvir tablet 300 mg (150 mg x 2) and ritonavir tablet 100 mg in a dose pack (PAXLOVID) (2 sources) Start: 05-13-2022 End: 05-18-2022 nirmatrelvir tablet 300 mg (150 mg x 2) and ritonavir tablet 100 mg in a dose pack (PAXLOVID) Indications: COVID-19 Administer TWO pink nirmatrelvir 150 mg tablets and ONE white ritonavir 100 mg tablet for a total of three tablets twice daily. 30 tablet 0 05/13/2022 05/18/2022 Active Comment on above: Administer TWO pink nirmatrelvir 150 mg tablets and ONE white ritonavir 100 mg tablet for a total of three tablets twice daily. nitrofurantoin, macrocrystals 25 mg / nitrofurantoin, monohydrate 75 mg oral capsule (4 sources) Nitrofuran Antibacterial Start: 02-14-2025 take 1 capsule by mouth twice daily nitrofurantoin monohydrate and macrocrystal (MACROBID) 100 mg capsule Indications: Acute UTI Take 1 capsule by mouth two times a day. 14 capsule 02/14/2025 Active nystatin [id number] unt/ml oral suspension (7 sources) Polyene Antifungal Start: 02-25-2020 nystatin 100,000 units/mL oral suspension 0 Refill(s) Start Date: 02/25/20 Status: Ordered nystatin 100,000 units/mL oral suspension (2 sources) Start: 02-25-2020 nystatin 100,000 units/mL oral suspension 0 Refill(s) Start Date: 02/25/20 Status: Ordered pantoprazole 40 mg delayed release oral tablet (20 sources) Proton Pump Inhibitor Start: 06-26-2022 End: 10-18-2024 take 1 tablet by mouth once daily before breakfast pantoprazole DR (PROTONIX) 40 mg tablet Take 1 tablet by mouth daily before breakfast. Take on empty stomach, 1/2 hr before meal. 90 tablet 1 10/18/2024 Active Start: 12-24-2021 End: 06-26-2022 take 1 tablet by mouth twice daily before mealtime pantoprazole DR (PROTONIX) 40 mg tablet Take 1 tablet by mouth twice daily. Take on empty stomach, 1/2 hr before meal. 60 tablet 12/24/2021 06/26/2022 Discontinued Start: 01-14-2020 End: 01-16-2020 take 1 tablet by mouth once daily Pantoprazole 40 MG tablet Discontinued 40 mg PO DAILY January 14, 2020 12:00am January 16, 2020 9:23am Comment on above: Take 1 tablet by nick twice daily. Take on empty stomach, 1/2 hr before meal. Take 1 tablet by nick once daily. Take on empty stomach, 1/2 hr before meal. Take 1 tablet by nick daily before breakfast. Take on empty stomach, 1/2 hr before meal. PARoxetine hydrochloride 10 mg oral tablet (20 sources) Serotonin Reuptake Inhibitor Start: End: take 1 tablet by mouth once daily PARoxetine (Paxil) 10 MG tablet TAKE 1 TABLET (10 MG) BY MOUTH DAILY. 30 tablet 06/06/2023 Active Start: 04-05-2021 PARoxetine 10 mg oral tablet Dose : 10 mg = 1 tab(s), Oral, qDay Start Date: 04/05/21 Status: Ordered Start: 02-27-2021 End: 12-26-2022 take 1 tablet by mouth once daily PARoxetine (PAXIL) 10 mg tablet Take 1 tablet by mouth once daily. 02/27/2021 12/26/2022 Discontinued Comment on above: Take 1 tablet by nick once daily. phenazopyridine hydrochloride 95 mg oral tablet (1 source) Start: 02-19-2025 End: 02-22-2025 Azo-Standard 95 mg oral tablet Dose : 95 mg = 1 tab(s), Oral, TID, X 3 day(s), # 9 tab(s), 0 Refill(s), 02/22/25 12:36:00 PM EDT Start Date: 02/19/25 Stop Date: 02/22/25 Status: Ordered Quantity: 9.0 Unit: tab(s) Repeat number: 1 predniSONE 10 mg oral tablet (20 sources) Start: 10-18-2024 End: 11-08-2024 predniSONE (DELTASONE) 10 mg tablet Indications: Migraine without aura and without status migrainosus, not intractable Take 4 tabs daily x 3 days, then 3 tabs x 3 days, 2 tabs x 3 days, then 1 tab x3 days with food. 30 tablet 10/27/2024 11/08/2024 Active Start: 06-16-2024 End: 06-20-2024 take 2 tablets by mouth once daily at mealtime predniSONE (DELTASONE) 20 mg tablet Indications: Acute cough , Upper respiratory infection with cough and congestion Take 2 tablets by mouth once daily for 4 days. Take daily with food. 8 tablet 06/16/2024 06/20/2024 Active Start: 04-29-2024 End: 05-03-2024 take 2 tablets by mouth once daily at mealtime predniSONE (DELTASONE) 20 mg tablet Take 2 tablets by mouth once daily for 4 days. Take daily with food. 8 tablet 04/29/2024 05/03/2024 Start: 12-16-2023 End: 05-25-2024 take 4 tablets by mouth once daily Prednisone 10 mg tablet Discontinued 40 mg PO DAILY April 01, 2024 12:00am May 25, 2024 2:10pm Start: 10-30-2020 End: 12-03-2020 predniSONE (DELTASONE) 50 mg Take one tab by mouth 13 hrs prior to MRI, take next dose 7 hrs prior to MRI and take last dose 1 hr prior to MRI. 3 tablet 10/30/2020 12/03/2020 Discontinued Comment on above: Take 4 tabs daily fo r 3 days, then 2 tabs daily for 3 days, then 1 tab daily for 3 days with food. promethazine hydrochloride 25 mg oral tablet (20 sources) Phenothiazine Start: 10-12-19 End: 10-27-19 take 1 tablet by mouth every eight hours as needed for nausea promethazine (PHENERGAN) 25 mg tablet Indications: Migraine without aura and without status migrainosus, not intractable Take 1 tablet by mouth every 8 hours as needed for nausea/vomiting. 30 tablet 1 10/27/2024 Active Start: 02-25-2020 End: 12-03-2023 take 1 tablet by mouth three times daily as needed for nausea and vomiting Promethazine 25 mg tablet Discontinued 25 mg PO THREE TIMES A DAY as needed for nausea and vomiting June 14, 2021 12:00am December 03, 2023 5:04pm Start: 02-25-2020 End: 05-13-2022 take 1 tablet by mouth every eight hours as needed promethazine (PHENERGAN) 25 mg tablet Take 1 tablet by mouth every 8 hours as needed (for nausea). 10 tablet 12/24/2021 05/13/2022 Discontinued (Other) Start: 02-25-2020 promethazine 2 5 mg oral tablet Dose : 25 mg = 1 tab(s), Oral, q4h, PRN as needed for nausea/vomiting, # 20 tab(s), 0 Refill(s), Kidney stone Start Date: 10/12/22 Status: Ordered Start: 10-07-2019 End: 10-07-2019 promethazine (PHENERGAN) inj ection 6.25 mg Comment on above: Take 1 tablet by nick th every 8 hours as needed (for nausea). Take 1 tablet by nick th every 8 hours as needed for nausea/vomiting. sertraline 100 mg oral tablet (20 sources) Serotonin Reuptake Inhibitor Start: 01-21-2020 Zoloft 100 mg oral tablet Dose : 100 mg = 1 tab(s), Oral, qDay, # 30 tab(s), 0 Refill(s) Start Date: 01/21/20 Status: Ordered Start: 12-14-2019 End: 02-05-2020 Sertraline (Zoloft) 50 mg ta blet Discontinued 75 mg PO DAILY December 14, 2019 12:00am February 05, 2020 8:22am simethicone 80 mg chewable tablet (1 source) Start: 10-08-2019 simethicone (MYLICON) chewable tablet 80 mg sodium chloride flush 0.9 % injection 3 mL (1 source) Start: 09-11-2019 sodium chlorid e flush 0.9 % injection 3 mL sucralfate 1000 mg oral tablet (20 sources) Aluminum Complex Start: 06-14-2021 take 1 tablet by mouth twice daily Sucralfate (Carafate) 1 gram Tablet Active 1 GM PO TWICE A DAY June 14, 2021 12:00am Start: 11-19-2020 End: 06-26-2022 take 1 tablet by mouth four times daily sucralfate (CARAFATE) 1 gram tablet Take 1 g by mouth four times daily. 11/19/2020 06/26/2022 Discontinued Start: 10-18-2020 sucralfate 1 g oral tablet Dose : 1 gram(s) = 1 tab(s), Oral, BID, # 180 tab(s), 0 Refill(s) Start Date: 10/18/20 Status: Ordered Comment on above: Take 1 g by mouth fo ur times daily. 0.5 ml SUMAtriptan 12 mg/ml cartridge (20 sources) Serotonin-1b and Serotonin-1d Receptor Agonist Start: 05-18-20 inject 0.5 mL by subcutaneous injection every hour as needed for headache SUMAtriptan (IMITREX STATDOSE PEN) 6 mg/0.5 mL pen Inject 0.5 mL subcutaneously as needed for migraine headache (see administration instructions). May repeat dose after 1 hour if needed. Maximum daily dose is 12 mg per day. 4 mL 3 05/18/2024 Active Start: 05-18-2024 SUMAtriptan Ovalle ccinate 6 MG/0.5ML solution cartridge Inject 6 mg under the skin. 05/18/2024 Active Start: 04-29-2024 End: 05-18-2024 take 1 tablet by mouth every two hours as needed for headache SUMAtriptan (IMITREX) 100 mg tablet Take 1 tablet (100 mg) by mouth as needed for migraine headache (see administration instructions). May repeat dose after 2 hours if needed. Maximum daily dose is 200 mg per day. 9 tablet 1 04/29/2024 05/18/2024 Discontinued (Lack of Efficacy) topiramate 25 mg oral tablet (20 sources) Start: 10-27-2024 End: 12-07-2024 take 1 tablet by mouth twice daily topiramate (TOPAMAX) 25 mg tablet Indications: Migraine without aura and without status migrainosus, not intractable Take 1 tablet by mouth two times a day. 60 tablet 11 12/07/2024 Active traZODone hydrochloride 50 mg oral tablet (20 sources) Serotonin Reuptake Inhibitor Start: 02-23-2024 End: 12-07-2024 traZODone 50 mg oral tablet Dose : 50 mg = 1 tab(s), Oral, qHS, # 30 tab(s), 0 Refill(s) Start Date: 12/05/24 Status: Ordered Quantity: 30.0 Unit: tab(s) Repeat number: 1 Start: 01-02-2016 End: 06-26-2022 take 1 tablet by mouth once daily at bedtime traZODone (DESYREL) 100 mg tablet Take 100 mg by mouth daily at bedtime. 01/02/2016 06/26/2022 Discontinued Comment on above: Take 100 mg by mouth daily at bedtime. triamcinolone acetonide 1 mg/ml topical cream (9 sources) Corticosteroid Start: 01-19-2024 End: 02-02-2024 triamcinolone acetonide (KENALOG) 0.1 % cream Indications: Pruritus Apply 1 application to affected area three times a day for 14 days. Apply to affected area. until healed/no longer itching for up to 14 days. 15 g 0 01/19/2024 02/02/2024 Active Start: 02-25-2020 triamcinolone 0.1% topical paste 0 Refill(s), 91.9 Start Date: 02/25/20 Status: Ordered triamcinolone 0.1% topical p aste (2 sources) Start: 02-25-2020 triamcinolone 0.1% topical paste 0 Refill(s), 91.9 Start Date: 02/25/20 Status: Ordered Completed/Discontinued Medications Medication Drug Class(es) Dates Sig (Normalized) Sig (Original) acetaminophen 500 mg oral tablet (15 sources) Start: 08-18-2023 End: 12-01-2023 take 1 tablet by mouth every six hours as needed for pain acetaminophen (TYLENOL EXTRA STRENGTH) 500 mg tablet Indications: Contusion of right thumb without damage to nail, initial encounter Take 1 tablet by mouth every 6 hours as needed for pain. 30 tablet 08/18/2023 12/01/2023 Discontinued Start: 08-12-2023 End: 08-18-2023 take 2 tablets by mouth every eight hours as needed for pain acetaminophen (TYLENOL EXTRA STRENGTH) 500 mg tablet Indications: Viral URI with cough Take 2 tablets by mouth every 8 hours as needed for pain or fever (specify temp.). 30 tablet 08/12/2023 08/18/2023 Discontinued Start: 10-07-2019 take 650 mg by mouth every four hours as needed for pain, then take 4000 mg by mouth every twenty-four hours as needed for pain 650 mg, Oral, EVERY 4 HOURS PRN, Pain Mild (1-3), Fever, Fever >100.5 F (38 C), Starting 10/07/19 at 1245 Maximum dose of acetaminophen is 4000 mg from all sources in 24 hours. Post-op Start: 10-07-2019 End: 10-07-2019 acetaminophen (TYLENOL) tabl et 1,000 mg Start: 09-03-2019 650 mg, Oral, EVERY 4 HOURS PRN, Fever, For temp greater than 100.5 F (38 C), Starting 09/03/19 at 1003 Maximum dose of acetaminophen is 4000 mg from all sources in 24 hours. take 1 tablet by nick th every six hours as needed for pain acetaminophen (TYLENOL) 500 MG tablet Take 500 mg by mouth every 6 hours as needed for Pain 0 Active Comment on above: Take 2 tablets by mo uth every 8 hours as needed for pain or fever (specify temp.). Take 1 tablet by nick th every 6 hours as needed for pain. ALPRAZolam 0.25 mg disintegrating oral tablet (5 sources) Benzodiazepine Start: 10-07-2019 End: 10-07-2019 ALPRAZolam (NIRAVAM) dissolvable tablet 0.25 mg Start: 09-03-2016 End: 09-30-2019 ALPRAZolam (XANAX) 0.5 MG ta blet Take 0.5 mg by mouth 0 09/03/2016 09/30/2019 Discontinued (LIST CLEANUP) amitriptyline hydrochloride 50 mg oral tablet (20 sources) Tricyclic Antidepressant Start: 10-23-2019 End: 12-14-2019 Amitriptyline 50 MG tablet Discontinued 75 mg PO DAILY October 23, 2019 1:00am December 14, 2019 10:39am Start: 10-23-2019 End: 12-14-2019 take 75 mg by mouth once daily Amitriptyline Discontin ued 75 MG PO DAILY October 23, 2019 1:00am December 14, 2019 10:39am amylase [id number] unt / lipase 3000 unt / protease 9500 unt delayed release oral capsule (20 sources) Start: 12-03-2023 End: 10-27-2024 take 1 capsule by mouth three times daily at mealtime [id number]-aivjrwef-[id number] (CREON 3) 3,000-9,500- 15,000 unit delayed release capsule Indications: Acute pancreatitis without infection or necrosis, unspecified pancreatitis type Take 1 capsule by mouth three times a day with meals. 90 capsule 2 12/03/2023 10/27/2024 Discontinued Start: 04-22-2023 End: 12-01-2023 take 2 capsules by mouth three times daily at mealtime hghogh-smxtovok-ptpswkc (CREON 3) 3,000-9,500- 15,000 unit delayed release capsule Indications: Acute pancreatitis without infection or necrosis, unspecified pancreatitis type Take 2 capsules by mouth three times daily with meals. 180 capsule 2 04/22/2023 12/01/2023 Discontinued Start: 03-11-2023 End: 04-22-2023 take 1 capsule by mouth three times daily at mealtime [id number]-gqwxibt (CREON 3) 3,000-9,500- 15,000 unit delayed release capsule Indications: Acute pancreatitis without infection or necrosis, unspecified pancreatitis type Take 1 capsule by mouth three times daily with meals. 90 capsule 2 03/11/2023 04/22/2023 Discontinued Comment on above: Take 1 capsule by mo uth three times daily with meals. Take 2 capsules by m outh three times daily with meals. Take 1 capsule by mo uth three times a day with meals. benzonatate 100 mg oral capsule (20 sources) Non-narcotic Antitussive Start: End: take 1-2 capsules by mouth three times daily as needed benzonatate (TESSALON PERLES) 100 mg capsule Indications: Acute cough Take 1-2 capsules by mouth three times a day as needed. 60 capsule 1 06/20/2024 06/20/2024 Discontinued Start: 03-31-2024 End: 05-27-2024 take 1 capsule by mouth every eight hours as needed benzonatate (TESSALON PERLES) 100 mg capsule Take 1 capsule by mouth three times a day as needed for cough. 12 capsule 03/31/2024 05/27/2024 Discontinued Start: 12-16-2023 End: 01-01-2024 take 1 capsule by mouth every eight hours as needed benzonatate (TESSALON PERLES) 100 mg capsule Take 1 capsule by mouth three times a day as needed for cough. 21 capsule 0 12/16/2023 01/01/2024 Discontinued Start: 08-12-2023 End: 08-22-2023 take 2 capsules by mouth three times daily as needed benzonatate (TESSALON PERLE) 100 mg capsule Indications: Viral URI with cough Take 2 capsules by mouth three times a day as needed for up to 10 days. 60 capsule 08/12/2023 08/22/2023 Start: 03-09-2023 End: 03-30-2023 take 1 capsule by mouth every eight hours as needed benzonatate (TESSALON PERLES) 100 mg capsule Take 1 capsule by mouth three times daily as needed for cough. 14 capsule 0 03/09/2023 03/30/2023 Discontinued Start: 05-12-2022 End: 06-26-2022 take 1 capsule by mouth every eight hours as needed benzonatate (TESSALON PERLES) 100 mg capsule Take 1 capsule by mouth three times daily as needed for cough. 12 capsule 0 05/12/2022 06/26/2022 Discontinued Start: 08-30-2021 End: 05-12-2022 take 1 capsule by mouth every eight hours as needed Benzonatate 200 mg capsule Take 1 capsule by mouth three times daily as needed. 45 capsule 1 08/30/2021 05/12/2022 Discontinued (Course of therapy completed) Comment on above: Take 1 capsule by mo uth three times daily as needed. Take 1 capsule by mo uth three times daily as needed for cough. Take 2 capsules by m outh three times a day as needed for up to 10 days. Take 1 capsule by mo uth three times a day as needed for cough. brompheniramine maleate 0.4 mg/ml / dextromethorphan hydrobromide 2 mg/ml / pseudoephedrine hydrochloride 6 mg/ml oral solution (11 sources) alpha-Adrenergic Agonist, Uncompetitive M-shyugs-E-aspartate Receptor Antagonist, Sigma-1 Agonist Start: 07-28-20 End: 10-03-19 take 5 mL by mouth four times daily as needed Brompheniramine-Pse udoeph-DM (BROMFED DM) 2-30-10 mg/5 mL syrup Indications: Acute cough Take 5 mL by mouth four times a day as needed. 120 mL 07/28/2024 10/03/2024 Discontinued (Course of therapy completed) Start: 09-10-2023 End: 10-09-2023 take 10 mL by mouth every six hours as needed Gryruuywwnvaitg-Jvyrgpjry-UP (BROMFED DM ) 2-30-10 mg/5 mL syrup Take 10 mL by mouth four times a day as needed. 118 mL 0 10/09/2023 Active Comment on above: Take 10 mL by mouth four times a day as needed. budesonide 3 mg delayed release oral capsule (2 sources) Corticosteroid Start: 01-26-20 End: 02-09-20 take 3 capsules by mouth once daily Budesonide 3 mg capsule,delayed,ext end.release Discontinued 9 mg PO DAILY 90 January 26, 2024 12:00am February 09, 2024 8:44am buPROPion hydrochloride 75 mg oral tablet (8 sources) Aminoketone Start: 06-21-20 16 End: 05-13-20 take 1 tablet by mouth once daily buPROPion (WELLBUTRIN) 75 mg tablet Take 75 mg by mouth once daily. 06/21/2016 05/13/2022 Discontinued (Other) Comment on above: Take 75 mg by mouth once daily. busPIRone hydrochloride 10 mg oral tablet (20 sources) Start: 09-12-20 End: 05-13-20 take 1 tablet by mouth twice daily busPIRone (BUSPAR) 10 mg tablet Take 10 mg by mouth twice daily. 09/12/2020 05/13/2022 Discontinued (Other) Comment on above: Take 10 mg by mouth twice daily. calcium chloride 0.0014 meq/ml / potassium chloride 0.004 meq/ml / sodium chloride 0.103 meq/ml / sodium lactate 0.028 meq/ml injectable solution (1 source) Start: 10-07-19 End: 10-08-19 Intravenous, at 75 mL/hr, CONTINUOUS, Starting 10/07/19 at 1315, For 4 days, Post-op ceFAZolin 2000 mg injection (1 source) Cephalosporin Antibacterial Start: 10-07-19 End: 10-07-19 ceFAZolin (ANCEF) 2 g in dextrose 4 % 100 mL IVPB (premix) cefTRIAXone sodium 1 g in dextrose 5 % 50 mL IVPB (add-vantage) (1 source) Start: 09-03-20 1 g, Intravenous, EVERY 24 HOURS, First dose on 09/03/19 at 1130, Until Discontinued cetirizine hydrochloride 10 mg oral tablet (20 sources) Histamine-1 Receptor Antagonist Start: 01-19-20 End: 07-11-20 take 1 tablet by mouth once daily cetirizine (ZYRTEC) 10 mg tablet Indications: Rash and nonspecific skin eruption Take 1 tablet by mouth once daily. for itching. 30 tablet 01/19/2024 07/11/2024 Discontinued codeine phosphate 2 mg/ml / guaiFENesin 20 mg/ml oral solution (8 sources) Opioid Agonist Start: 06-16-20 End: 06-23-20 take 10 mL by mouth three times daily as needed for cough codeine-guaiFENesin (GUAIFENESIN AC) 10-100 mg/5 mL syrup Indications: Acute cough , Upper respiratory infection with cough and congestion Take 10 mL by mouth three times a day as needed for cough for up to 7 days. 118 mL 06/16/2024 06/21/2024 Discontinued (Lack of Efficacy) Start: 12-26-2022 End: 01-02-2023 take 10 mL by mouth three times daily as needed for cough codeine-guaiFENesin (GUAIFENESIN AC) 10-100 mg/5 mL syrup Indications: Acute cough , Upper respiratory infection with cough and congestion Take 10 mL by mouth three times daily as needed for cough for up to 7 days. 118 mL 0 12/26/2022 01/02/2023 Active Start: 08-05-2022 End: 08-12-2022 take 10 mL by mouth three times daily as needed for cough codeine-guaiFENesin (GUAIFENESIN AC) 10-100 mg/5 mL syrup Indications: Acute cough , Upper respiratory infection with cough and congestion Take 10 mL by mouth three times daily as needed for cough for up to 7 days. 118 mL 0 08/05/2022 08/12/2022 Active Start: 07-22-2022 End: 07-29-2022 take 10 mL by mouth three times daily as needed for cough codeine-guaiFENesin (GUAIFENESIN AC) 10-100 mg/5 mL syrup Indications: Acute cough , Upper respiratory infection with cough and congestion Take 10 mL by mouth three times daily as needed for cough for up to 7 days. 118 mL 0 07/22/2022 07/29/2022 Active Comment on above: Take 10 mL by mouth three times daily as needed for cough for up to 7 days. dextromethorphan hydrobromide 3 mg/ml / promethazine hydrochloride 1.25 mg/ml oral solution (7 sources) Phenothiazine, Uncompetitive C-wspqpb-H-aspartate Receptor Antagonist, Sigma-1 Agonist Start: 07-18-20 End: 07-22-20 take 5 mL by mouth every six hours as needed Promethazine-DM (PHENERGAN-DM) 6.25-15 mg/5 mL syrup Take 5 mL by mouth four times daily as needed. 118 mL 0 07/18/2022 07/22/2022 Discontinued (Other) Start: 05-13-2022 End: 06-26-2022 take 5 mL by mouth four times daily as needed Promethazine-DM (PHENERGAN-DM) 6.25-15 mg/5 mL syrup Indications: COVID-19 Take 5 mL by mouth four times daily as needed. 118 mL 0 05/13/2022 06/26/2022 Discontinued Comment on above: Take 5 mL by mouth f our times daily as needed. diclofenac sodium 0.01 mg/mg topical gel (9 sources) Nonsteroidal Anti-inflammatory Drug Start: 11-20-19 End: 05-13-20 apply 2 g topically four times daily diclofenac (VOLTAREN) 1 % topical gel Indications: Acute pain of right knee Apply 2 g to affected area four times daily. 20 g 11/19/2020 05/13/2022 Discontinued (Other) Comment on above: Apply 2 g to affecte d area four times daily. docusate sodium 100 mg oral capsule (4 sources) Start: 06-21-20 End: 12-04-19 take 1 capsule by mouth twice daily docusate sodium (COLACE) 100 mg capsule Take 1 capsule by mouth twice daily. 60 capsule 06/21/2020 12/03/2020 Discontinued Start: 10-09-[address] [facility] twice daily as needed for constipation docusate sodium (COLACE, DULCOLAX) 100 MG CAPS Take 100 mg by mouth 2 times daily as needed for Constipation 60 capsule 0 10/09/2019 Active Start: 10-08-2019 docusate sodiu m (COLACE) capsule 100 mg DULoxetine 20 mg delayed release oral capsule (15 sources) Serotonin and Norepinephrine Reuptake Inhibitor End: 12-26-2022 take 1 capsule by mouth once daily DULoxetine (CYMBALTA) 20 mg capsule Take 20 mg by mouth once daily. 0 12/26/2022 Discontinued Comment on above: Take 20 mg by mouth once daily. famotidine 40 mg oral tablet (20 sources) Histamine-2 Receptor Antagonist Start: 03-30-2023 End: 06-10-2024 take 1 tablet by mouth once daily famotidine (PEPCID) 40 mg tablet Indications: Acute pancreatitis without infection or necrosis, unspecified pancreatitis type , Intractable nausea and vomiting Take 1 tablet by mouth once daily. 90 tablet 1 03/30/2023 06/10/2024 Discontinued Start: 10-07-2019 End: 10-07-2019 famotidine (PEPCID) tablet 2 0 mg Comment on above: Take 1 tablet by nick th once daily. 2 ml fentaNYL 0.05 mg/ml injection (1 source) Opioid Agonist Start: 0 End: 0 fentaNYL (SUBLIMAZE) injection 50 mcg fluticasone propionate 0.05 mg/actuat metered dose nasal spray (13 sources) Corticosteroid Start: 4 End: 4 take 2 spray(s) by mouth once daily fluticasone (FLONASE) 50 mcg/actuation nasal spray Indications: Viral URI with cough Use 2 Sprays in each nostril once daily. Rinse mouth after use. 1 Each 10/07/2023 12/01/2023 Discontinued Start: 12-26-2022 End: 02-16-2023 take 2 puff(s) by mouth twice daily fluticasone propionate (FLOVENT DISKUS) 250 mcg/actuation inhaler Indications: Moderate persistent asthmatic bronchitis with acute exacerbation Inhale 2 Puffs as instructed twice daily. Rinse mouth after use 60 Each 1 12/26/2022 02/16/2023 Discontinued Start: 10-18-2020 End: 12-03-2020 take 1 spray(s) by mouth twice daily fluticasone (FLONASE) 50 mcg/actuation nasal spray Use 1 [place] in each nostril twice daily. Rinse mouth after use. 1 Bottle 1 10/18/2020 12/03/2020 Discontinued Comment on above: Inhale 2 Puffs as in structed twice daily. Rinse mouth after use Use 2 Sprays in each nostril once daily. Rinse mouth after use. fluticasone / salmeterol (20 sources) Corticosteroid, beta2-Adrenergic Agonist Start: 07-11-20 End: 10-27-19 take 1 puff(s) by inhalation twice daily fluticasone-salmeter ol (WIXELA INHUB) 500-50 mcg/dose dsdv Indications: Acute asthmatic bronchitis Inhale 1 Puff as instructed two times a day. 1 Each 1 07/11/2024 10/27/2024 Discontinued (Discontinued by Patient) Start: 07-11-2024 take 1 puff(s) by in halation twice daily fluticasone-salmeterol (WIXELA INHUB) 500-50 mcg/dose dsdv Indications: Acute asthmatic bronchitis Inhale 1 Puff as instructed two times a day. 1 Each 1 07/11/2024 Active Start: 06-21-2024 End: 10-27-2024 take 1 puff(s) by inhalation twice daily fluticasone-salmeterol (WIXELA INHUB) 250-50 mcg/dose inhaler Indications: Acute asthmatic bronchitis Inhale 1 Puff as instructed two times a day. 1 Each 06/21/2024 10/27/2024 Discontinued (Discontinued by Patient) Start: 06-21-2024 take 1 puff(s) by in halation twice daily fluticasone-salmeterol (WIXELA INHUB) 250-50 mcg/dose inhaler Indications: Acute asthmatic bronchitis Inhale 1 Puff as instructed two times a day. 1 Each 06/21/2024 Active 60 actuat formoterol fumarate 0.005 mg/actuat / mometasone furoate 0.2 mg/actuat metered dose inhaler (1 source) Corticosteroid, beta2-Adrenergic Agonist Start: 12-26-2022 End: 12-26-2022 take 2 puff(s) by mouth twice daily mometasone-formoterol (DULERA) 200-5 mcg/actuation inhaler Indications: Moderate persistent asthmatic bronchitis with acute exacerbation Inhale 2 Puffs as instructed twice daily. Rinse mouth after use 1 Each 2 12/26/2022 12/26/2022 Discontinued Comment on above: Inhale 2 Puffs as in structed twice daily. Rinse mouth after use 1 ml HYDROmorphone hydrochloride 1 mg/ml cartridge (7 sources) Opioid Agonist Start: 12-17-2024 End: 12-17-2024 take 1 dose by mouth every hour 1 mg, IntraVENous, Once, On 12/17/24 at 1405, For 1 dose, If oral and injectable narcotics ordered, use oral first and only use injectable if oral is ineffective or cannot take oral. Do Not give oral and injectable within 1 hour of each other unless specifically ordered. Start: 10-07-2019 End: 10-07-2019 HYDROmorphone (DILAUDID) 1 M G/ML injection Start: 10-07-2019 End: 10-08-2019 HYDROmorphone (DILAUDID) inj ection 0.5 mg ibuprofen 600 mg oral tablet (11 sources) Nonsteroidal Anti-inflammatory Drug Start: 03-04-2024 End: 06-10-2024 take 1 tablet by mouth every six hours as needed ibuprofen (MOTRIN) 600 mg tablet Take 600 mg by mouth every 6 hours as needed for pain. 03/04/2024 06/10/2024 Discontinued Start: 10-07-2019 ibuprofen (ADV IL;MOTRIN) tablet 600 mg Iopamidol (1 source) Radiographic Contrast Agent Start: 09-05-2019 End: 09-05-2019 iopamidol (ISOVUE-300) 61 % injection 50 mL 1 ml ketorolac tromethamine 30 mg/ml cartridge (2 sources) Nonsteroidal Anti-inflammatory Drug, Cyclooxygenase Inhibitor Start: 10-07-2019 End: 10-08-2019 30 mg, Intravenous, EVERY 6 HOURS, First dose on Thu10/07/19 at 1315, For 8 doses Do not administer for more than 5 days. Post-op Start: 09-11-2019 End: 09-11-2019 ketorolac (TORADOL) injectio n 15 mg lamoTRIgine 25 mg oral tablet (5 sources) Mood Stabilizer, Anti-epileptic Agent Start: 04-30-2022 End: 06-26-2022 take 2 tablets by mouth once daily lamoTRIgine (LAMICTAL) 25 mg tablet Take 50 mg by mouth once daily. 0 04/30/2022 06/26/2022 Discontinued Comment on above: Take 50 mg by mouth once daily. [place] [facility] [place] Start: 06-10-2024 End: 07-11-2024 [place] [facility] [place]: Acute left ankle pain For left ankle. 1 Each 06/10/2024 07/11/2024 Discontinued Start: 06-10-2024 [place] [facility] [place]ications: Acute left ankle pain For left ankle. 1 Each 06/10/2024 Active lidocaine hydrochloride 20 mg/ml mucous membrane topical solution (8 sources) Antiarrhythmic, Amide Local Anesthetic Start: 07-02-2023 End: 12-01-2023 LIDOCAINE VISCOUS 2 % solution Indications: Sore throat , Viral URI with cough Take 15 mL by mouth every 3 hours as needed for pain. 120 mL 1 07/02/2023 12/01/2023 Discontinued Comment on above: Take 15 mL by mouth every 3 hours as needed for pain. lubiprostone 0.008 mg oral capsule (7 sources) Chloride Channel Activator Start: 01-21-2021 End: 05-13-2022 take 1 capsule by mouth twice daily at mealtime lubiprostone (AMITIZA) 8 mcg capsule Take 1 capsule by mouth twice daily with meals. 60 capsule 2 01/21/2021 05/13/2022 Discontinued (Other) Comment on above: Take [address] [facility] twice daily with meals. meclizine hydrochloride 25 mg oral tablet (13 sources) Antiemetic Start: 05-08-2021 End: 06-26-2022 take 1 tablet by mouth three times daily meclizine (ANTIVERT) 25 mg tab Indications: Dizziness , History of vertigo Take 1 tablet by mouth three times daily. 90 tablet 05/08/2021 06/26/2022 Discontinued Comment on above: [facility] mecobalamin 1 mg chewable tablet (20 sources) Start: 11-19-2020 End: 03-26-2021 take 1 tablet by mouth once daily Mecobalamin (Vitamin B12) 1,000 mcg tablet,chewable Discontinued 1000 ug PO DAILY November 19, 2020 1:00am March 26, 2021 10:08am meloxicam 15 mg oral tablet (6 sources) Nonsteroidal Anti-inflammatory Drug Start: 01-01-2024 End: 03-11-2024 take 1 tablet by mouth once daily at mealtime meloxicam (MOBIC) 15 mg tablet Take 1 tablet by mouth once daily. With food. 30 tablet 1 01/01/2024 03/11/2024 Discontinued metaxalone 800 mg oral tablet (4 sources) Start: 09-19-2016 End: 09-30-2019 metaxalone (SKELAXIN) 800 MG tablet Take 800 mg by mouth 0 09/19/2016 09/30/2019 Discontinued (LIST CLEANUP) 1 ml morphine sulfate 4 mg/ml cartridge (9 sources) Opioid Agonist Start: 02-24-2025 End: 02-24-2025 take 1 dose by mouth every hour 4 mg, IntraVENous, Once, On 02/24/25 at 1125, For 1 dose, If oral and injectable narcotics ordered, use oral first and only use injectable if oral is ineffective or cannot take oral. Do Not give oral and injectable within 1 hour of each other unless specifically ordered. Start: 12-15-2024 End: 12-15-2024 take 1 dose by mouth every hour 4 mg, IntraVENous, Onc e, On Evelyn 12/15/24 at 0125, For 1 dose, If oral and IV narcotics ordered, use oral first and only use IV if oral is ineffective or cannot take oral. Do Not give oral and IV within 1 hour of each other unless specifically ordered. Start: 12-12-2024 End: 12-12-2024 4 mg, IntraVENous, Once, On 12/12/24 at 1520, For 1 dose Start: 09-11-2019 End: 09-11-2019 morphine (PF) injection 4 mg Start: 09-03-2019 take 2 mg by mouth e very four hours as needed for pain 2 mg, Intravenous, EVERY 4 HOURS PRN, Pain Severe (7-10), Starting 09/03/19 at 1004 If oral and IV narcotics ordered, use oral first and only use IV if oral is ineffective or cannot take oral. Do Not give oral and IV within 1 hour of each other unless specifically ordered. naproxen 500 mg oral tablet (5 sources) Nonsteroidal Anti-inflammatory Drug Start: 09-08-2022 End: 12-26-2022 take 1 tablet by mouth every twelve hours as needed naproxen (NAPROSYN) 500 mg tablet Take 1 tablet by mouth twice daily as needed (pain/inflammation, take with food.). 30 tablet 0 09/08/2022 12/26/2022 Discontinued Comment on above: Take 1 tablet by mouth twice daily as ne eded (pain/inflammation, take with food.). OLANZapine 5 mg oral tablet (9 sources) Atypical Antipsychotic Start: 07-19-2020 End: 05-13-2022 take 1 tablet by mouth once daily at bedtime OLANZapine (ZYPREXA) 5 mg tablet TAKE 1 TABLET BY MOUTH EVERYDAY AT BEDTIME 07/19/2020 05/13/2022 Discontinued (Other) Comment on above: TAKE 1 TABLET BY MOUTH EVERYDAY AT BEDTI ME omeprazole 20 mg delayed release oral tablet (20 sources) Proton Pump Inhibitor Start: 10-03-2020 End: 12-03-2023 take 1 tablet by mouth once daily Omeprazole Magnesium 20 MG tablet,delayed release (DR/EC) Discontinued 20 mg PO DAILY October 03, 2020 1:00am December 03, 2023 5:04pm Start: 07-19-2020 End: 05-13-2022 take 1 capsule by mouth twice daily omeprazole (PRILOSEC) 40 mg capsule Take 1 capsule by mouth twice daily. 60 capsule 07/19/2020 05/13/2022 Discontinued (Other) Comment on above: Take [address] [facility] twice daily. ondansetron 4 mg disintegrating oral tablet (20 sources) Serotonin-3 Receptor Antagonist Start: 12-27-2024 End: 12-27-2024 take 4 mg by mouth once 4 mg, Oral, Once, On Thu12/27/24 at 1540, For 1 dose Start: 12-15-2024 End: 12-15-2024 4 mg, IntraVENous, Once, On Evelyn 12/15/24 at 0125, For 1 dose Start: 12-12-2024 End: 12-12-2024 4 mg, IntraVENous, Once, On 12/12/24 at 1520, For 1 dose Start: 12-12-2024 End: 12-15-2024 take 1 tablet by mouth every six hours ondansetron (Zofran) 4 MG tablet Take 1 tablet (4 mg) by mouth every 6 hours for 3 days. 12 tablet 12/12/2024 12/15/2024 Active Start: 12-05-2024 ondansetron OD T (Zofran-ODT) 4 MG disintegrating tablet 4 mg. 12/05/2024 Active Start: 10-04-2024 take 1 tablet by nick th every six hours as needed for nausea and vomiting Ondansetron 4 mg tablet,disintegrating Active 4 mg PO EVERY 6 HOURS as needed for nausea and vomiting November 17, 2024 1:00am Start: 04-10-2022 End: 12-03-2023 take 1 tablet by mouth every eight hours as needed for nausea Ondansetron 4 mg tablet,disintegrating Discontinued 4 mg PO EVERY 8 HOURS NEEDED as needed for Nausea April 01, 2023 12:00am December 03, 2023 4:44pm Start: 10-07-2019 End: 10-07-2019 4 mg, Intravenous, EVERY 8 H OURS PRN, Nausea, Vomiting, Starting 10/07/19 at 1245 If uncontrolled after 2 doses, notify physician. Post-op Start: 09-11-2019 End: 09-11-2019 ondansetron (ZOFRAN) injecti on 4 mg Start: 09-03-2019 4 mg, Intraven ous, EVERY 6 HOURS PRN, Nausea, Vomiting, Starting 09/03/19 at 1004 OXcarbazepine 300 mg oral tablet (18 sources) Anti-epileptic Agent Start: 11-29-2020 End: 05-13-2022 OXcarbazepine (TRILEPTAL) 300 mg tablet 11/29/2020 05/13/2022 Discontinued (Other) oxyCODONE hydrochloride 5 mg oral tablet (20 sources) Opioid Agonist Start: 12-27-2024 End: 12-27-2024 take 5 mg by mouth once 5 mg, Oral, Once, On Thu12/27/24 at 1540, For 1 dose Start: 12-27-2024 take 1 tablet by nick th every eight hours as needed for pain oxyCODONE (Roxicodone) 5 MG immediate release tablet Indications: Chronic pelvic pain in female Take 1 tablet (5 mg) by mouth every 8 hours as needed for severe pain (7-10). 10 tablet 12/27/2024 Active Start: 06-10-2024 End: 06-15-2024 take 1 tablet by mouth every eight hours as needed oxyCODONE IR (ROXICODONE) 5 mg immediate release tablet Indications: Acute left ankle pain Take 1 tablet by mouth every 8 hours as needed for up to 5 days. 15 tablet 06/10/2024 06/15/2024 Active Start: 12-04-2023 End: 02-23-2024 take 1 tablet by mouth every four hours as needed for pain Oxycodone 5 mg Tablet Discontinued 5 mg PO EVERY 4 HOURS NEEDED as needed for Pain Score 6-10 15 3 December 04, 2023 February 23, 2024 9:58am Start: 02-12-2020 End: 02-13-2020 take 2 tablets by mouth every four hours as needed for pain Oxycodone 5 MG tablet Discontinued 10 mg PO EVERY 4 HOURS NEEDED as needed for severe pain 60 5 February 12, 2020 February 09, 2020 12:00am February 13, 2020 12:02am Start: 02-05-2020 End: 02-13-2020 take 10 mg by mouth every four hours as needed Oxycodone Discontinued 10 MG PO EVERY 4 HOURS NEEDED 60 5 February 12, 2020 February 13, 2020 12:02am Start: 10-07-2019 End: 10-14-2019 oxyCODONE (ROXICODONE) 5 MG immediate release tablet Indications: S/P laparotomy Take 1 tablet by mouth every 6 hours as needed for Pain for up to 7 days. Intended supply: 7 days. Take lowest dose possible to manage pain 28 tablet 0 10/07/2019 10/14/2019 Active Start: 10-07-2019 oxyCODONE (SIMONA ICODONE) immediate release tablet 5 mg polyethylene glycol [id number] [id number] mg powder for oral solution (4 sources) Osmotic Laxative Start: 04-01-2017 End: 09-30-2019 take 17 g by mouth once daily as needed for constipation polyethylene glycol (MIRALAX) PACK packet Take 17 g by mouth daily as needed (CONSTIPATION) 7 each 1 04/01/2017 09/30/2019 Discontinued (LIST CLEANUP) microencapsulated potassium chloride 10 meq extended release oral tablet (1 source) Start: 09-04-2019 End: 09-04-2019 potassium chloride (KLOR-CON M) extended release tablet 40 mEq prazosin 1 mg oral capsule (20 sources) alpha-Adrenergic Corinne Start: 02-25-2020 End: 12-03-2023 take 1 capsule by mouth at bedtime Prazosin 1 MG capsule Discontinued 1 mg PO AT BEDTIME March 26, 2020 12:00am December 03, 2023 5:04pm Comment on above: Take 1 mg by mouth d aily at bedtime. pregabalin 100 mg oral capsule (2 sources) Start: 11-19-2021 End: 02-17-2022 take 1 capsule by mouth three times daily pregabalin (LYRICA) 100 mg capsule Indications: Mixed headache , Chronic nonintractable headache, unspecified headache type Take 1 capsule by mouth three times daily for 90 days. 90 capsule 2 11/19/2021 01/27/2022 Discontinued Comment on above: Take [address] [facility] three times daily for 90 days. prochlorperazine 10 mg oral tablet (20 sources) Phenothiazine Start: 12-03-2023 End: 12-25-2023 take 1 tablet by mouth three times daily as needed for nausea prochlorperazine (COMPAZINE) 10 mg tablet Indications: Acute pancreatitis without infection or necrosis, unspecified pancreatitis type Take 1 tablet by mouth three times a day as needed for nausea/vomiting. 90 tablet 1 12/03/2023 12/25/2023 Discontinued Start: 04-22-2023 End: 12-01-2023 take 1 tablet by mouth three times daily as needed for nausea prochlorperazine (COMPAZINE) 10 mg tablet Indications: Acute pancreatitis without infection or necrosis, unspecified pancreatitis type Take 1 tablet by mouth three times daily as needed for nausea/vomiting. 90 tablet 1 04/22/2023 12/01/2023 Discontinued Start: 03-16-2023 End: 03-21-2023 prochlorperazine 10 mg oral tablet Dose : 10 mg = 1 tab(s), Oral, TID, PRN Nausea/Vomiting, X 5 day(s), # 15 tab(s), 0 Refill(s), 03/21/23 14:43:00 EDT, Pharmacy: [facility]/pharmacy #[id number], 155, cm, 03/15/23 11:21:00 EDT, Height Start Date: 03/16/23 Stop Date: 03/21/23 Status: Ordered Comment on above: Take 1 tablet by nick th three times daily as needed for nausea/vomiting. Take 1 tablet by nick th three times a day as needed for nausea/vomiting. Psyllium Seed-Sucrose (METAMUCIL, SUGAR,) (20 sources) Start: 01-01-2024 End: 07-28-2024 Psyllium Seed-Sucrose (METAMUCIL, SUGAR,) Take per package directions 01/01/2024 07/28/2024 Discontinued Start: 01-01-2024 Psyllium Seed- Sucrose (METAMUCIL, SUGAR,) Take per package directions 01/01/2024 Active Start: 01-01-2024 Psyllium Seed- Sucrose (METAMUCIL, SUGAR,) Take per package directions 0 01/01/2024 Active QUEtiapine 200 mg oral tablet (20 sources) Atypical Antipsychotic Start: 01-01-2024 End: 03-11-2024 take 1 tablet by mouth once daily at bedtime QUEtiapine (SEROQUEL) 200 mg tablet Take 1 tablet by mouth daily at bedtime. 0 01/01/2024 03/11/2024 Discontinued Start: 01-16-2020 End: 02-05-2020 take 1 tablet by mouth at bedtime Quetiapine (Seroquel) 100 mg tablet Discontinued 100 mg PO AT BEDTIME January 16, 2020 12:00am February 05, 2020 8:22am Start: 01-15-2020 End: 02-23-2024 take 50-100 mg by mouth at bedtime Quetiapine 50 mg tablet Discontinued 50 - 100 mg PO AT BEDTIME September 07, 2022 1:00am February 23, 2024 9:58am End: 09-30-2019 take 1 tablet by mouth once daily QUEtiapine (SEROQUEL XR) 150 MG TB24 extended release tablet Take 150 mg by mouth daily 0 09/30/2019 Discontinued (LIST CLEANUP) Comment on above: Take 50 mg by mouth daily at bedtime. 50 ml sodium chloride 9 mg/ml injection (20 sources) Start: 12-17-2024 End: 12-17-2024 1,000 mL, IntraVENous, at 1,000 mL/hr, Administer over 1 Hours, Once, On 12/17/24 at 1230, For 1 dose Start: 12-12-2024 End: 12-12-2024 1,000 mL, IntraVENous, at 1, 000 mL/hr, Administer over 1 Hours, Once, On 12/12/24 at 1520, For 1 dose Start: 10-18-2024 sodium chlorid e (SALINE NASAL) 0.65 % nasal spray Use 1 [place] in the nose as needed. 10/18/2024 Active Start: 10-07-2019 10 mL, Intrave nous, EVERY 12 HOURS SCHEDULED (2 times per day), First dose on Thu10/07/19 at 2100, Post-op Start: 10-07-2019 take 10 mL intravenously once 10 mL, Intravenous, PRN, Line Care, Starting Thu10/07/19 at 1245 After every IV line use Post-op Start: 09-03-2019 0.9 % sodium c hloride infusion Start: 09-03-2019 10 mL, Intrave nous, EVERY 12 HOURS SCHEDULED (2 times per day), First dose on 09/03/19 at 1030 Start: 09-03-2019 take 10 mL intraveno usly once as needed 10 mL, Intravenous, PRN, Line Care, After every IV line use, Starting 09/03/19 at 1003 sulfamethoxazole 800 mg / trimethoprim 160 mg oral tablet (7 sources) Dihydrofolate Reductase Inhibitor Antibacterial, Sulfonamide Antimicrobial Start: 02-24-2025 End: 03-06-2025 take 1 tablet by mouth twice daily sulfamethoxazole-trimethoprim (Bactrim DS) 800-160 MG tablet Take 1 tablet by mouth 2 times daily for 10 days. 20 tablet 02/24/2025 03/06/2025 Start: 02-24-2025 End: 02-24-2025 take 1 tablet by mouth once 1 tablet, Oral, Once, On F ri 02/24/25 at 1235, For 1 dose, Suspected Indication (Select all that apply): Urinary Tract Infection Start: 02-24-2025 End: 02-24-2025 take 1 tablet by mouth once 1 tablet, Oral, Once, On F ri 02/24/25 at 1235, For 1 dose, Suspected Indication (Select all that apply): Urinary Tract Infection Start: 08-16-2021 End: 08-26-2021 take 1 tablet by mouth twice daily Bactrim DS 800 mg-160 mg oral tablet Dose = 1 tab(s), Oral, BID, X 10 day(s), # 20 tab(s), 0 Refill(s), 91 Start Date: 08/16/21 Stop Date: 08/26/21 Status: Ordered tamsulosin hydrochloride 0.4 mg oral capsule (13 sources) alpha-Adrenergic Corinne Start: 04-19-2021 End: 04-24-2021 Flomax 0.4 mg oral capsule Dose : 0.4 mg = 1 cap(s), Oral, qDay, # 5 cap(s), 0 Refill(s) Start Date: 04/19/21 Stop Date: 04/24/21 Status: Ordered Start: 09-03-2019 End: 09-30-2019 take 1 capsule by mouth once daily tamsulosin (FLOMAX) 0.4 MG capsule Take 1 capsule by mouth daily for 5 days 5 capsule 0 09/05/2019 09/30/2019 Discontinued (LIST CLEANUP) tiZANidine 4 mg oral tablet (12 sources) Central alpha-2 Adrenergic Agonist Start: 10-21-2021 End: 06-26-2022 take 1 tablet by mouth once daily tiZANidine (ZANAFLEX) 4 mg tablet Take 4 mg by mouth once daily. 10/21/2021 06/26/2022 Discontinued Comment on above: Take 4 mg by mouth o nce daily. traMADol hydrochloride 50 mg oral tablet (4 sources) Opioid Agonist Start: 01-15-2024 End: 01-20-2024 take 1 tablet by mouth every six hours as needed for pain Tramadol 50 mg tablet Discontinued 50 mg PO EVERY 6 HOURS as needed for pain 20 5 January 15, 2024 12:00am January 19, 2024 12:00am January 20, 2024 12:06am vitamin b12 1 mg oral tablet (20 sources) Vitamin B12 Start: 06-27-2022 End: 07-11-2024 take 1 tablet by mouth once daily cyanocobalamin (VITAMIN B-12) 1,000 mcg tab Take 1 tablet by mouth once daily. 30 tablet 11 06/27/2022 07/11/2024 Discontinued (Discontinued by Patient) Start: 11-15-2020 End: 05-13-2022 take 1 tablet by mouth once daily cyanocobalamin (VITAMIN B-12) 1,000 mcg tab Take 1 tablet by mouth once daily. 30 tablet 1 11/15/2020 05/13/2022 Discontinued (Other) Comment on above: Take 1 tablet by nick th once daily. Problems Active Problems Problem Classification Problem Date Documented Da te Episodic/Chronic Allergic reactions (10 sources) Allergy status to penicillin; Translations: [Allergy status to analgesic agent status] Onset: 4 Episodic Anxiety disorders (20 sources) Anxiety; Translations: [Anxiety disorder, unspecified] Onset: 6 06-25-2021 Chronic Asthma (20 sources) Exacerbation of moderate persistent asthma; Translations: [Moderate persistent asthma with (acute) exacerbation] Onset: 4 Chronic Bacterial infection; unspecified site (1 source) Other specified bacterial agents as the cause of diseases classified elsewhere; Translations: [BV (bacterial vaginosis)] Onset: 5 Episodic Chronic obstructive pulmonary disease and bronchiectasis (20 sources) Chronic bronchitis; Translations: [Unspecified chronic bronchitis] 08-06-2022 Chronic Conditions associated with dizziness or vertigo (20 sources) Lightheadedness; Translations: [Dizziness and giddiness] 11-16-2020 Episodic Conduction disorders (20 sources) Incomplete right bundle branch block; Translations: [Unspecified right bundle-branch block] 01-14-2020 Chronic Disorders of lipid metabolism (20 sources) Hypercholesterolemia; Translations: [Hyperlipidemia] Onset: 3 02-06-2015 Chronic Disorders of teeth and jaw (20 sources) Dental abscess; Translations: [Periapical abscess without sinus] Episodic Esophageal disorders (2 sources) Gastroesophageal reflux disease; Translations: [Gastro-esophageal reflux disease without esophagitis] 10-18-2024 Chronic Fluid and electrolyte disorders (20 sources) Dehydration; Translations: [Dehydration] 04-18-2022 Episodic Gastroduodenal ulcer (except hemorrhage) (20 sources) Peptic ulcer; Translations: [Peptic ulcer, site unspecified, unspecified as acute or chronic, without hemorrhage or perforation] 04-27-2020 Chronic Comment on above: according to pt Headache; including migraine (20 sources) Migraine without aura; Translations: [Migraine without aura, not intractable, without status migrainosus] Onset: 8 04-11-2021 Chronic Headache; including migraine (20 sources) Headache; Translations: [Headache] 03-27-2020 Episodic Hemorrhoids (1 source) Hemorrhoids; Translations: [Unspecified hemorrhoids] 02-14-2025 Episodic Inflammatory diseases of female pelvic organs (2 sources) Bacterial vaginosis; Translations: [Acute vaginitis] Onset: 5 02-14-2025 Episodic Influenza (1 source) Influenza-like illness; Translations: [Influenza due to unidentified influenza virus with other respiratory manifestations] 10-13-2024 Episodic Intracranial injury (20 sources) Concussion with no loss of consciousness; Translations: [Concussion without loss of consciousness, initial encounter] 01-03-2016 Episodic Joint disorders and dislocations; trauma-related (3 sources) Locked joint of right knee; Translations: [Unspecified internal derangement of right knee] 11-30-2024 Chronic Malaise and fatigue (20 sources) Fatigue; Translations: [Other fatigue] Episodic Mood disorders (20 sources) Bipolar disorder; Translations: [Bipolar disorder, unspecified] Onset: 6 11-16-2020 Chronic Mycoses (2 sources) Candidiasis; Translations: [Candidiasis, unspecified] Onset: 5 Episodic Noninfectious gastroenteritis (20 sources) Chronic diarrhea; Translations: [Noninfective gastroenteritis and colitis, unspecified] 11-16-2020 Episodic Nonmalignant breast conditions (20 sources) Abscess of breast; Translations: [Abscess of the breast and nipple] 12-16-2020 Episodic Nonspecific chest pain (20 sources) Chest pain; Translations: [Chest pain, unspecified] 01-19-2020 Episodic Nutritional deficiencies (4 sources) Vitamin D deficiency; Translations: [Vitamin D deficiency, unspecified] Onset: 4 Chronic Nutritional deficiencies (2 sources) Cobalamin deficiency; Translations: [Deficiency of other specified B group vitamins] Episodic Other aftercare (2 sources) Other custodial (current) drug therapy; Translations: [Other rat exterminator (current) drug therapy] Onset: 4 Episodic Other aftercare (1 source) Encounter for therapeutic drug level monitoring; Translations: [Encounter for therapeutic drug level monitoring] Onset: 5 Episodic Other bone disease and musculoskeletal deformities (1 source) Bone pain; Translations: [Other specified disorders of bone, unspecified site] 11-19-2020 Episodic Other connective tissue disease (20 sources) Pain in left lower limb; Translations: [Pain in left leg] 12-10-2019 Episodic Other connective tissue disease (1 source) Pain in right lower limb; Translations: [Pain in right leg] 11-19-2020 Episodic Other connective tissue disease (2 sources) Pain in lower limb; Translations: [Pain in leg, unspecified] 02-25-2024 Episodic Other disorders of stomach and duodenum (5 sources) Gastroparesis syndrome; Translations: [Gastroparesis] 12-26-2023 Episodic Other ear and sense organ disorders (1 source) Acute otitis externa of right ear; Translations: [Unspecified acute noninfective otitis externa, right ear] 03-11-2024 Episodic Other endocrine disorders (1 source) Empty sella syndrome; Translations: [Other disorders of pituitary gland] 04-29-2024 Chronic Other female genital disorders (20 sources) Cyst of uterine adnexa; Translations: [Unspecified condition associated with female genital organs and menstrual cycle] 09-03-2019 Episodic Other female genital disorders (2 sources) History of endometriosis; Translations: [Personal history of other diseases of the female genital tract] 12-12-2024 Episodic Other female genital disorders (2 sources) Personal history of other diseases of the female genital tract; Translations: [Personal history of other diseases of the female genital tract] Onset: 5 Episodic Other gastrointestinal disorders (1 source) Irritable bowel syndrome without diarrhea; Translations: [Irritable bowel syndrome without diarrhea] Onset: 4 Chronic Other gastrointestinal disorders (20 sources) Diarrhea; Translations: [Diarrhea, unspecified] 04-18-2022 Episodic Other gastrointestinal disorders (20 sources) Abdominal bloating; Translations: [Abdominal distension (gaseous)] 11-18-2022 Episodic Other gastrointestinal disorders (12 sources) History of pancreatitis; Translations: [Personal history of other diseases of the digestive system] 12-03-2023 Episodic Other gastrointestinal disorders (1 source) Constipation alternates with diarrhea; Translations: [Other specified symptoms and signs involving the digestive system and abdomen] 12-07-2024 Episodic Other infections; including parasitic (1 source) Infection by Trichomonas; Translations: [Trichomoniasis, unspecified] Onset: 5 Episodic Other infections; including parasitic (1 source) Trichomoniasis, unspecified; Translations: [Trichomoniasis, unspecified] Onset: 5 Episodic Other inflammatory condition of skin (1 source) Itching ; Translations: [Pruritus, unspecified] 06-10-2024 Episodic Other injuries and conditions due to external causes (20 sources) Closed injury of head; Translations: [Unspecified injury of head, initial encounter] 02-10-2023 Episodic Other injuries and conditions due to external causes (1 source) Open wound; Translations: [Other injury of unspecified body region, initial encounter] Episodic Other injuries and conditions due to external causes (2 sources) Injury of right hand; Translations: [Unspecified injury of right wrist, hand and finger(s), initial encounter] 08-18-2023 Episodic Other injuries and conditions due to external causes (1 source) Finding with explicit context; Translations: [Personal history of other (healed) physical injury and trauma] 11-30-2024 Episodic Other injuries and conditions due to external causes (1 source) Other specified injuries of unspecified lower leg, initial encounter; Translations: [Other specified injuries of unspecified lower leg, initial encounter] Onset: 5 Episodic Other liver diseases (1 source) Disease of liver; Translations: [Other specified diseases of liver] Onset: 3 Chronic Other liver diseases (1 source) Other specified diseases of liver; Translations: [Liver cyst] Onset: 0 Chronic Other liver diseases (1 source) Alkaline phosphatase raised; Translations: [Abnormal levels of other serum enzymes] 11-19-2020 Episodic Other lower respiratory disease (20 sources) Dyspnea; Translations: [Dyspnea, unspecified] 01-19-2020 Episodic Other lower respiratory disease (20 sources) Nodule of lung; Translations: [Solitary pulmonary nodule] 03-06-2021 Episodic Other lower respiratory disease (17 sources) Cough; Translations: [Acute cough] Episodic Other lower respiratory disease (5 sources) Cough; Translations: [Acute cough] 05-12-2022 Episodic Other lower respiratory disease (1 source) Dyspnea on exertion; Translations: [Other forms of dyspnea] 10-03-2024 Episodic Other lower respiratory disease (1 source) Chronic cough; Translations: [Chronic cough] 10-18-2024 Episodic Other nervous system disorders (20 sources) Chronic pain syndrome; Translations: [Chronic pain syndrome] Onset: 0 Resolved: 5 06-06-2020 Chronic Other nervous system disorders (2 sources) Other chronic pain; Translations: [Other chronic pain] Onset: 5 Chronic Other nervous system disorders (20 sources) Right upper quadrant pain; Translations: [Other acute postprocedural pain] 06-20-2020 Episodic Other nervous system disorders (2 sources) Tremor; Translations: [Tremor, unspecified] 11-17-2024 Episodic Other non-traumatic joint disorders (3 sources) Pain in right knee; Translations: [Pain in joint, lower leg] Episodic Other non-traumatic joint disorders (1 source) Joint pain; Translations: [Pain in unspecified joint] Episodic Other non-traumatic joint disorders (1 source) Acute ankle pain; Translations: [Pain in left ankle and joints of left foot] 06-10-2024 Episodic Other nutritional; endocrine; and metabolic disorders (20 sources) Obese class II; Translations: [Obesity, unspecified] Onset: 3 Chronic Other skin disorders (1 source) Eruption; Translations: [Rash and other nonspecific skin eruption] 01-19-2024 Episodic Other skin disorders (1 source) Disorder of left lower extremity; Translations: [Localized swelling, mass and lump, left lower limb] 06-10-2024 Episodic Other upper respiratory disease (20 sources) Allergic rhinitis; Translations: [Allergic rhinitis, unspecified] Onset: 8 03-31-2016 Chronic Other upper respiratory disease (20 sources) Bronchospasm; Translations: [Acute bronchospasm] 08-06-2022 Episodic Other upper respiratory infections (4 sources) Chronic sinusitis; Translations: [Chronic sinusitis, unspecified] Chronic Other upper respiratory infections (14 sources) Upper respiratory infection; Translations: [Acute upper respiratory infection, unspecified] Episodic Otitis media and related conditions (3 sources) Acute suppurative otitis media without spontaneous rupture of ear drum; Translations: [Acute suppurative otitis media without spontaneous rupture of ear drum, bilateral] 10-17-2024 Episodic Pancreatic disorders (not diabetes) (5 sources) Chronic pancreatitis; Translations: [Other chronic pancreatitis] Onset: 4 03-30-2023 Chronic Pancreatic disorders (not diabetes) (20 sources) Pancreatitis; Translations: [Acute pancreatitis without necrosis or infection, unspecified] Onset: 3 02-19-2020 Episodic Maia-; endo-; and myocarditis; cardiomyopathy (except that caused by tuberculosis or sexually transmitted disease) (1 source) Pericardial effusion; Translations: [Pericardial effusion] 10-03-2024 Episodic Regional enteritis and ulcerative colitis (1 source) Crohn's disease, unspecified, without complications; Translations: [Crohn's disease, unspecified, without complications] Onset: 4 Chronic Residual codes; unclassified (1 source) Insomnia; Translations: [Other insomnia] 10-03-2024 Chronic Residual codes; unclassified (17 sources) Insomnia; Translations: [Insomnia, unspecified] Onset: 1 06-25-2021 Episodic Residual codes; unclassified (20 sources) Pain; Translations: [Pain, unspecified] 11-16-2020 Episodic Residual codes; unclassified (20 sources) Tobacco use and exposure - finding; Translations: [Tobacco use] 08-06-2022 Episodic Residual codes; unclassified (1 source) Tobacco user; Translations: [Tobacco use] Onset: 3 Episodic Residual codes; unclassified (8 sources) H/O: vertigo; Translations: [Personal history of other specified conditions] 12-09-2023 Episodic Residual codes; unclassified (2 sources) Acquired absence of both cervix and uterus; Translations: [Acquired absence of both cervix and uterus] Onset: 4 Episodic Residual codes; unclassified (1 source) Acquired absence of ovaries, bilateral; Translations: [Acquired absence of ovaries, bilateral] Onset: 5 Episodic Skin and subcutaneous tissue infections (1 source) Cellulitis; Translations: [Cellulitis, unspecified] Onset: 1 Episodic Sprains and strains (20 sources) Strain of neck muscle; Translations: [Strain of muscle, fascia and tendon at neck level, initial encounter] 01-03-2016 Episodic Substance-related disorders (20 sources) Smoker; Translations: [Nicotine dependence, unspecified, uncomplicated] Onset: 8 Resolved: 4 09-09-2021 Chronic Superficial injury; contusion (20 sources) Contusion of elbow; Translations: [Contusion of right elbow, initial encounter] 02-09-2023 Episodic Syncope (20 sources) Syncope symptom; Translations: [Syncope and collapse] 11-16-2020 Episodic Unclassified (1 source) APPOINTMENT CANCELLED 05-20-2023 Unclassified (2 sources) Chronic pain of right knee 11-30-2024 Unclassified (1 source) Low back pain, unspecified; Translations: [Low back pain, unspecified] Onset: 5 Unclassified (1 source) Acute cough; Translations: [Acute cough] Onset: 4 Unclassified (1 source) Subacute cough; Translations: [Subacute cough] Onset: 4 Urinary tract infections (20 sources) Urinary tract infectious disease; Translations: [Urinary tract infection, site not specified] Onset: 4 08-02-2020 Episodic Past or Other Problems Problem Classification Problem Date Documented Da te Episodic/Chronic Abdominal pain (20 sources) Abdominal pain; Translations: [Unspecified abdominal pain] Onset: 08-08-2015 Resolved: 10-27-2024 Episodic Blindness and vision defects (20 sources) Blurring of visual image; Translations: [Other visual disturbances] Onset: 02-23-2017 Resolved: 10-27-2024 02-23-2017 Episodic Calculus of urinary tract (20 sources) Kidney stone; Translations: [Ureteric stone] Onset: 05-17-2008 02-06-2015 Episodic Cancer of uterus (20 sources) History of malignant neoplasm of uterine body; Translations: [Personal history of malignant neoplasm of other parts of uterus] Onset: 09-14-2006 12-14-2019 Episodic Diabetes mellitus without complication (20 sources) Impaired fasting glycemia; Translations: [Impaired fasting glucose] Onset: 05-17-2008 Resolved: 12-01-2023 11-19-2010 Episodic Immunizations and screening for infectious disease (5 sources) Viral screening status; Translations: [Encounter for screening for other viral diseases] Onset: 02-24-2024 Episodic Miscellaneous mental health disorders (20 sources) Acute insomnia; Translations: [Adjustment insomnia] Onset: 03-31-2016 03-31-2016 Episodic Nausea and vomiting (20 sources) Nausea and vomiting; Translations: [Nausea with vomiting, unspecified] Onset: 05-25-2020 Resolved: 10-27-2024 05-25-2020 Episodic Open wounds of head; neck; and trunk (20 sources) Open wound of left breast; Translations: [Unspecified open wound of left breast, subsequent encounter] Onset: 01-19-2023 Resolved: 10-27-2024 Episodic Other aftercare (1 source) half-way (current) use of opiate analgesic; Translations: [long term acute care registered nurse (current) use of opiate analgesic] Onset: 05-01-2024 Episodic Other connective tissue disease (20 sources) Trochanteric bursitis; Translations: [Trochanteric bursitis, unspecified hip] Onset: 06-18-2016 Resolved: 10-27-2024 06-18-2016 Episodic Other connective tissue disease (20 sources) Weakness of right arm; Translations: [Other symptoms and signs involving the musculoskeletal system] Onset: 02-23-2017 02-23-2017 Episodic Other connective tissue disease (20 sources) Weakness of right leg; Translations: [Other symptoms and signs involving the musculoskeletal system] Onset: 02-23-2017 02-23-2017 Episodic Other connective tissue disease (20 sources) Other symptoms and signs involving the musculoskeletal system; Translations: [Other musculoskeletal symptoms referable to limbs] Onset: 02-23-2017 Resolved: 10-27-2024 02-23-2017 Episodic Other connective tissue disease (1 source) Pain in leg, unspecified; Translations: [Pain in leg, unspecified] Onset: 02-25-2024 Episodic Other diseases of kidney and ureters (20 sources) Hydronephrosis; Translations: [Unspecified hydronephrosis] Onset: 02-05-2017 Resolved: 10-27-2024 02-05-2017 Episodic Other diseases of kidney and ureters (20 sources) Hydroureter; Translations: [Hydroureter] Onset: 02-05-2017 Resolved: 10-27-2024 02-05-2017 Episodic Other disorders of stomach and duodenum (20 sources) Psychogenic vomiting; Translations: [Other diseases of stomach and duodenum] Onset: 06-25-2021 Resolved: 10-27-2024 06-25-2021 Episodic Other disorders of stomach and duodenum (1 source) Gastroparesis; Translations: [Gastroparesis] Onset: 06-02-2024 Episodic Other gastrointestinal disorders (1 source) Mass of uterine adnexa Episodic Other gastrointestinal disorders (1 source) Pelvic mass Episodic Other gastrointestinal disorders (4 sources) Personal history of other diseases of the digestive system; Translations: [Personal history of other diseases of digestive system] Onset: 05-14-2024 12-03-2023 Episodic Other gastrointestinal disorders (1 source) Diarrhea, unspecified; Translations: [Diarrhea, unspecified] Onset: 02-18-2024 Episodic Other inflammatory condition of skin (2 sources) Pruritus, unspecified; Translations: [Unspecified pruritic disorder] Onset: 06-10-2024 01-19-2024 Episodic Other injuries and conditions due to external causes (1 source) Unspecified injury of head, initial encounter; Translations: [Unspecified injury of head, initial encounter] Onset: 12-15-2023 Episodic Other liver diseases (20 sources) Liver cyst; Translations: [Other specified diseases of liver] Onset: 05-24-2010 Resolved: 10-27-2024 03-31-2016 Chronic Other lower respiratory disease (20 sources) Multiple nodules of lung; Translations: [Other nonspecific abnormal finding of lung field] Onset: 01-22-2020 01-22-2020 Episodic Other lower respiratory disease (1 source) Shortness of breath; Translations: [Shortness of breath] Onset: 04-14-2024 Episodic Other nervous system disorders (20 sources) Numbness of face; Translations: [Anesthesia of skin] Onset: 02-23-2017 Resolved: 10-27-2024 02-23-2017 Episodic Other nervous system disorders (20 sources) Numbness of upper limb; Translations: [Anesthesia of skin] Onset: 02-23-2017 Resolved: 10-27-2024 02-23-2017 Episodic Other nervous system disorders (20 sources) Numbness of lower limb ; Translations: [Anesthesia of skin] Onset: 02-23-2017 Resolved: 10-27-2024 02-23-2017 Episodic Other nervous system disorders (20 sources) Postoperative pain ; Translations: [Other acute postprocedural pain] Onset: 06-19-2020 Resolved: 02-16-2023 06-19-2020 Episodic Other nervous system disorders (20 sources) Generalized abdominal pain; Translations: [Other acute postprocedural pain] Onset: 10-20-2016 06-26-2022 Episodic Other non-traumatic joint disorders (20 sources) Hip pain; Translations: [Pain in left hip] Onset: 06-18-2016 Resolved: 10-27-2024 06-18-2016 Episodic Other non-traumatic joint disorders (1 source) Pain in left ankle and joints of left foot; Translations: [Acute left ankle pain] Onset: 06-10-2024 Episodic Other screening for suspected conditions (not mental disorders or infectious disease) (20 sources) Patient encounter status; Translations: [Encounter for screening for cardiovascular disorders] Onset: 03-31-2016 Resolved: 10-27-2024 03-31-2016 Episodic Other skin disorders (2 sources) Rash and other nonspecific skin eruption; Translations: [Rash and other nonspecific skin eruption] Onset: 05-07-2024 Episodic Other skin disorders (1 source) Localized swelling, mass and lump, left lower limb; Translations: [Localized swelling, mass and lump, left lower limb] Onset: 06-10-2024 Episodic Ovarian cyst (20 sources) Cyst of ovary; Translations: [Unspecified ovarian cyst, unspecified side] Onset: 07-15-2012 Resolved: 10-27-2024 03-31-2016 Episodic Poisoning by nonmedicinal substances (1 source) Toxic effect of venom of bees, accidental (unintentional), initial encounter; Translations: [Toxic effect of venom of bees, accidental (unintentional), initial encounter] Onset: 05-07-2024 Episodic Residual codes; unclassified (20 sources) Family history of diabetes mellitus; Translations: [Family history of diabetes mellitus] Onset: 05-17-2008 Resolved: 10-27-2024 03-31-2016 Episodic Residual codes; unclassified (20 sources) Generalized aches and pains; Translations: [Pain, unspecified] Onset: 04-11-2021 04-11-2021 Episodic Residual codes; unclassified (1 source) Acquired absence of other genital organ(s); Translations: [Acquired absence of other genital organ(s)] Onset: 06-09-2024 Episodic Residual codes; unclassified (1 source) Acquired absence of other specified parts of digestive tract; Translations: [Acquired absence of other specified parts of digestive tract] Onset: 06-09-2024 Episodic Screening and history of mental health and substance abuse codes (20 sources) Ex-smoker; Translations: [Personal history of nicotine dependence] Onset: 06-26-2022 Resolved: 10-27-2024 Episodic Spondylosis; intervertebral disc disorders; other back problems (20 sources) Chronic low back pain; Translations: [Low back pain] Onset: 06-18-2016 Resolved: 10-27-2024 11-19-2016 Episodic Substance-related disorders (20 sources) Marijuana user; Translations: [Cannabis use, unspecified, uncomplicated] Onset: 07-10-2020 Resolved: 03-30-2023 07-10-2020 Episodic Unclassified (1 source) Patient encounter status 01-17-2025 Viral infection (20 sources) Disease caused by 2019-nCoV; Translations: [COVID-19] Onset: 10-07-2021 Resolved: 03-30-2023 10-07-2021 Episodic Results Test Name Value Interpretation Reference Range Facility [facility] 05-12-2025 [facility] Telephone (INTMWS) -------- SALLY VARGAS ([id number]) 1980 F Date Time Provider Department 05/12/25 SILVERIO HALEY INTWS During your visit today, we recorded the following information about you: Ivanna Torre RN 05/12/2025 12:54 PM Signed Patient calls to request a prescription for cough. Patient reports persistent on-going non-productive cough x 4 weeks. No chest pain, Shortness of Breath. Afebrile. Notified patient would need appointment to evaluate. Patient declines. Reviewed care advice with verbalized understanding. Offered express care as an alternative option if changes her mind. Ivanna Torer RN Allergies As of Date: 05/12/2025 Noted Allergy Reaction ASPIRIN 05/26/2019 16 - Unknown PENICILLINS 12/07/2009 2 - Rash CEPHALEXIN 10/20/2019 9 - Itching CHLORHEXIDINE 10/29/2016 2 - Rash Comments: Skin rash CIPROFLOXACIN 01/19/2024 2 - Rash Comments: Unclear if the pruritic areas of rash were related to medication or not, no prior use IODINATED CONTRAST MEDIA 02/09/2023 10 - Anaphylaxis TORADOL (KETOROLAC) 05/25/2020 2 - Rash ASA (SALICYLATES) 01/27/2011 14 - Other: See Comments Comments: ulcers CONTRAST DYE (IODINE) 05/17/2008 12 - Shortness of Breath DICYCLOMINE 04/01/2023 4 - Hives IBUPROFEN 06/18/2016 8 - GI Upset Date Reviewed: 02/14/2025 Reviewed by: Merced Hutchinson APRN.CLASSROOM TEACHER - Fully Assessed Reason for Visit: Patient Update [1234] Prescriptions as of 05/12/2025 - nitrofurantoin monohydrate and macrocrystal (MACROBID) 100 mg capsule Take 1 capsule by mouth two times a day. - topiramate (TOPAMAX) 25 mg tablet Take 1 tablet by mouth two times a day. - colestipol (COLESTID) 1 gram tablet Take 1 tablet by mouth two times a day. - benzocaine-menthol (CEPACOL) 15-3.6 mg lozg Use 1 Lozenge as instructed every 2 hours as needed. - promethazine (PHENERGAN) 25 mg tablet Take 1 tablet by mouth every 8 hours as needed for nausea/vomiting. - LORazepam (ATIVAN) 0.5 mg Take 1 tablet by mouth once daily as needed. [facility] - escitalopram oxalate (LEXAPRO) 20 mg tablet Take 1 tablet by mouth once daily. From [facility]. - ARIPiprazole (ABILIFY) 10 mg tablet Take 1 tablet by mouth once daily. From [facility]. - pantoprazole DR (PROTONIX) 40 mg tablet Take 1 tablet by mouth daily before breakfast. Take on empty stomach, 1/2 hr before meal. - sodium chloride (SALINE NASAL) 0.65 % nasal spray Use 1 [place] in the nose as needed. - gabapentin (NEURONTIN) 400 mg capsule Take 1 capsule by mouth every 12 hours for 90 days. - etodolac (LODINE) 400 mg tablet Take 1 tablet by mouth two times a day as needed. - albuterol HFA (VENTOLIN HFA) 90 mcg/actuation inhaler Inhale 2 Puffs as instructed every 4 hours as needed for wheezing/shortness of breath. - Cholecalciferol, Vitamin D3, 50 mcg (2,000 unit) cap Take 1 capsule by mouth once daily. - SUMAtriptan (IMITREX STATDOSE PEN) 6 mg/0.5 mL pen Inject 0.5 mL subcutaneously as needed for migraine headache (see administration instructions). May repeat dose after 1 hour if needed. Maximum daily dose is 12 mg per day. - diphenhydrAMINE (BENADRYL) 25 mg capsule Take 50 mg by mouth at bedtime as needed. 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] 03/31/2016 Adjustment insomnia [F51.02] 03/31/2016 Encounter for screening for cardiovascular diso*03/31/2016 02/16/2023 Bilateral low back pain without sciatica [M54.5*06/18/2016 Pain in left hip [M25.552] 06/18/2016 10/27/2024 Greater trochanteric bursitis [M70.60] 06/18/2016 10/27/2024 Hydronephrosis of left kidney [N13.30] 02/05/2017 10/27/2024 Hydroureter on left [N13.4] 02/05/2017 10/27/2024 Right facial numbness [R20.0] 02/23/2017 10/27/2024 Right upper extremity numbness [R20.0] 02/23/2017 10/27/2024 Numbness of right lower extremity [R20.0] 02/23/2017 10/27/2024 Weakness of right upper extremity [R29.898] 02/23/2017 10/27/2024 Weakness of right lower extremity [R29.898] 02/23/2017 10/27/2024 Vision blurred [H53.8] 02/23/2017 10/27/2024 Lumbar spine pain [M54.50] 02/23/2017 10/27/2024 Cervical spine pain [M54.2] 02/23/2017 10/27/2024 Abnormal MRI, lumbar spine [R93.7] 02/23/2017 10/27/2024 Hydroureter, left [N13.4] 03/30/2017 10/27/2024 Lung nodules [R91.8] (more content not included)... [facility] 36on 03-03-2025 [address] Story [facility] [place] [facility] 36on 03-02-2025 36 S: Patient spoke noris PENNY nurse regarding pelvic pain and discharge B: Onset of symptoms/concern 5 months A: See previous TE. Patient states she wants to be admitted to the hospital. She is very upset. States she has been pushed away and pushed away. R: While discussing advise, call got disconnected. Patient understands care advice. No further needs at this time. Patient instructed to call back with new or worsening symptoms. Reason for Disposition Patient wants to be seen Protocols used: Vaginal Ibxsaldzh-QAUJE-TQ [facility] 36 The patient is darell ng again and states the discharge is getting worse - she is not getting better and she has been dealing with this for 5 months. She is upset because she feels like she is stuck in pain and no one is treating her. She does not want Flagyl. She thinks the doctor should be concerned with discharge that has been present for 5 months. She is tired of being shoved to the ED. [facility] 36 S: Patient spoke nrois PENNY RN regarding discharge/abdominal pain Provider: Kimberly Practice Name: Yaquelin/Obfadyn B: Onset of symptoms/concern 5 months A: Still having a lot of pain and discharge, ongoing for 4-5 months, discharge dark yellow, slimy, smells,, sick to stomach, has had hysterectomy, has been to ED 5x, sent home 5x, has been on 5 different antibiotics, states she is just getting worse and something needs to be done. Advised antibiotic Flagyl was called into her pharmacy on 02/28 after calling into triage. Patient very irate and tearful, states she's not picking it up and states she has been on flagyl and it didn't help. States she has no insurance or income, has no gas to get back and forth, cannot afford to go to office for visit or ED. Patient states nobody cares about what is going on or wants to do anything. Advised we can schedule another visit to discuss with MD or to discuss seeing a special MD that works with pelvic health. Again gets very upset regarding not having insurance or ability to pay for appointment. RN asked patient if she had any specific requests at this time as she has declined scheduling appointment, going to ED, picking up antibiotic that was called in, sending message regarding alternative medication. Patient states she needs admitted to the hospital. R: RN will send TE to provider office for further assistance. Advised office has 24-48 hours to respond to messages and requests. Patient was given contact information regarding [place] financial assistance in previous encounter on 02/24. Again advised she has antibiotic at pharmacy and if symptoms are severe and uncontrolled prior to hearing from office needs to go to ED. States she needs to be admitted to the hospital. Declines setting up [employer]. Can be reached at [phone]. [facility] 36 Name of caller: Giovanna Vargas Contact phone number: [phone] Relationship to Patient: patient Provider: Dr. Story Practice: [facility] Chief Complaint/Reason for Call: Pt stated that she missed a call from Dr. Story's nurse. Pt did not say what the call was in regards to.. Spoke with the office and was informed that Dr. Story's nurse was at lunch. Pt is requesting a call back. Please advise. Best time of day caller can be reached: Any Patient advised that office/PCP has 24-48 business hours to return their call: Yes [facility] 36on 02-28-2025 36 S: Patient spoke noris PENNY nurse regarding pelvic pain and discharge. B: Onset of symptoms/concern has had BV. States I have been on 5 antibiotic, last seen on 02/24/2025. Insurance: self pay Started back in December with these symptoms A: vaginal discharge, I was taking Percocet for the pelvic pain, dark yellow, + pelvic pain temperature 101.0 F tearful through the whole triage. R: Declined direction to the ED. Worried about transportation and not having gasoline. States is unemployed. Paging Dr. Paxton Bryson at 16:22. Advised to call int the Flagyl 500 mg bid x 7 days dispense 14, no refills. Needs to be seen in the ED tonight. ZOHAIB RN relayed message. ZOHAIB RN called the prescription to the Pharmacy. Patient states she isn't going to apple picker the Flagyl 500 mg BID x 7. States she doesn't have money for the prescription nor the Office Visit. Patient is agitated and upset. Patient understands care advice. Patient instructed to call back with new or worsening symptoms. Reason for Disposition Yellow or green vaginal discharge and has a fever Protocols used: Vaginal Pkttuydnh-RNAKR-IW [facility] 36on 02-24-2025 36 Noted [facility] 36 S: Patient spoke noris PENNY nurse regarding pelvic pain and vaginal discharge B: Onset of symptoms/concern ongoing for months A: Patient states back in December she had a vaginal swab and it came back as bacterial infection. Patient states she was never treated for it. A couple weeks ago saw PCP and so was given flagyl and another medication and now pain is worse and vaginal discharge is worse. Went to [place] ER Thursday and was treated for UTI and yeast infection. Yesterday went back to hospital and had CT scan done and nothing looked bad. Patient states she is having so much abdominal pain and discharge is white, slimy and has blood in it. Pain is severe and having a hard time driving. Pain has got worse since being in ER and is a constant pain. Has done heating pad and tylenol. Tylenol is not helping. Not able to sleep or eat because of the pain. R: Patient advised to go to the ER since her pain is worse today. Patient states that the ER does not help her or do anything for her so it would be a waste of time and gas money. Patient states she has no insurance and no money so no one will see her. Spoke with Horace in office at [place] who gave number for financial assistance. This number was provided to patient [phone]. Horace advised to reach out to Dr. Anya Mcdonald. Spoke with Tamara and patient was offered appointment today in [place]. Patient states she cannot come to [place] for an appointment as it is too far away. Patient also states she cannot wait until next week when offered to schedule appointment next week. Patient states she will go to [facility] ER but she has to be admitted for pain control. Dr. Joyner aware. No further needs at this time. Patient instructed to call back with new or worsening symptoms. Reason for Disposition SEVERE abdominal pain (e.g., excruciating) Protocols used: Vaginal Pjzutxlbo-KLHPC-OF Normal [facility] Bacterial vaginosis and vagi nitis rRNA panel Probe (Vag fld)on 02-24-2025 Bacterial vaginosis Ql (Vag fld) [Interp] Not detected Not Detected [facility] C. glabrata DNA ABRAM+probe Ql (Vag fld) Not detected Not Detected [facility] Pillo sp DNA ABRAM+probe Ql (Vag fld) Not detected Not Detected [facility] Interpretation and review of laboratory results Abnormal [facility] T. vaginalis DNA ABRAM+probe Ql (Vag fld) Detected Abnormal Not Detected [facility] Methodology: real-ti me PCR A negative result does not preclude a possible infection. This assay can detect the Pillo species C. albicans, C. tropicalis, C. parapsilosis, and C. dubliniensis but does not differentiate among them. The assay also detects C. glabrata and C. krusei, but does not differentiate between them. Results should be interpreted in conjunction with other clinical data. This test has not been validated for use with specimens collected by patients at home. This test is intended for medical purposes only and is not valid for the evaluation of suspected sexual abuse or for other forensic purposes. [facility] CBC (HEMOGRAM)on 02-24-2025 Erythrocyte distribution width (RBC) [Ratio] 12.6 % Normal 11.5-15.0 [facility] Comment on above: Performed By: #### L [id number] ####Business Account Manager: CANDELARIAELY FREITAS ([phone])[facility]PITAL[facility]anna YOUSSEFJabari (SBHLAB)[address] [place] [address] Hematocrit (Bld) [Volume fraction] 41.6 % Normal 35.0-47.0 [facility] Comment on above: Performed By: #### L [id number] ####Business Account Manager: CANDELARIA FORTINO ([phone])[facility]ITAL[facility] (SBHLAB)[address] Hemoglobin (Bld) [Mass/Vol] 13.9 g/dL Normal 11.7-16.0 [facility] Comment on above: Performed By: #### L [id number] ####Business Account Manager: CANDELARIA FREITAS ([phone])[facility]ITALHanna [facility]LESREH[facility] S[facility] NEW MEXICOJabari (SBHLAB)[address] [place] [address] MCH (RBC) [Entitic mass] 30.1 pg Normal 26.0-34.0 [facility] Comment on above: Performed By: #### L [id number] ####Business Account Manager: CANDELARIAELY FREITAS ([phone])[facility]ITAL[facility] [place] (SBHLAB)[address] [place] [address] MCHC 33.4 % Normal 30.5-36.0 [facility] Comment on above: Performed By: #### L [id number] ####Business Account Manager: CANDELARIA HOFFSARAH ([phone])[facility]ITAL[facility] (SBHLAB)[address] [place] [address] MCV (RBC) [Entitic vol] 90.0 fL Normal 77.0-99.0 [facility] Comment on above: Performed By: #### L [id number] ####Business Account Manager: CANDELARIA FORTINO ([phone])[facility]ITAL[facility] [place] (SBHLAB)[address] [place] [address] Platelet mean volume (Bld) [Entitic vol] 10.6 fL Normal 9.0-12.7 [facility] Comment on above: Performed By: #### L [id number] ####Business Account Manager: CANDELARIA AYALACER ([phone])[facility]ITAL[facility] [place] (SBHLAB)[address] Platelets (Bld) [#/Vol] 257 10*3/uL Normal 140-440 [facility] Comment on above: Performed By: #### L [id number] ####Business Account Manager: CANDELARIA GARCIALeticiaSARAH ([phone])[facility]ITALHanna [facility] (SBHLAB)[address] RBC (Bld) [#/Vol] 4.62 10*6/uL Normal 3.80-5.20 [facility] Comment on above: Performed By: #### L [id number] ####Business Account Manager: CANDELARIA HOFFSARAH ([phone])[facility]ITALHanna [place] (SBHLAB)[address] [place] [address] WBC (Bld) [#/Vol] 9.9 10*3/uL Normal 3.6-10.7 [facility] Comment on above: Performed By: #### L [id number] ####Business Account Manager: CANDELARIA FORTINO ([phone])[facility]ITALH[facility] (SBAB)[address] [place] [address] CBC panel Auto (Bld)on 02-24 Erythrocyte distribution width (RBC) [Ratio] 12.6 % 11.5 - 15.0 % [facility] Hematocrit (Bld) [Volume fraction] 41.6 % 35.0 - 47.0 % [facility] Hemoglobin (Bld) [Mass/Vol] 13.9 g/dL 11.7 - 16.0 g/dL [facility] Interpretation and review of laboratory results Normal [facility] MCH (RBC) [Entitic mass] 30.1 pg 26.0 - 34.0 pg [facility] MCHC (RBC) [Mass/Vol] 33.4 % 30.5 - 36.0 % [facility] MCV (RBC) [Entitic vol] 90 fL 77.0 - 99.0 fL [facility] [employer] Platelet mean volume (Bld) [Entitic vol] 10.6 fL 9.0 - 12.7 fL [facility] Platelets (Bld) [#/Vol] 257 10*3/uL 140 - 440 10*3/uL [facility] RBC (Bld) [#/Vol] 4.62 10*6/uL 3.80 - 5.2 0 10*6/uL [facility] WBC (Bld) [#/Vol] 9.9 10*3/uL 3.6 - 10.7 10*3/uL [facility] CHLAMYDIA/GONORRHEAon 2024 CHLAMYDIA/GONORRHEA NEISSERIA GONORRHOEA E DNA PROBE Reference Not Detected Not Detected CHLAMYDIA TRACHOMATIS DNA PROBE Reference Not Detected Not Detected ORDER COMMENTS: Methodology: real-time PCR This test is intended for medical purposes only and is not intended for the evaluation of suspected sexual abuse or for other forensic purposes. In certain contexts, culture may be required to meet applicable laws and regulations for diagnosis of C. trachomatis and N. gonorrhoeae infections. Per 2014 CDC recommmendations, this test does not include confirmation of positive results by an alternative nucleic acid target. A negative result does not exclude the possibility of infection. A result of invalid indicates that a new specimen should be collected if clinically indicated. Normal [facility] Comment on above: Performed By: #### L [id number] ####Business Account Manager: SAGE PEPE ([phone])[facility] (SACLAB[address] COMPLETE URINALYSIS WITH REF EMILY TO CULTUREon 02-24-2025 BACTERIA (#/HPF) IN URINE Moderate Abnormal Negative [facility] Comment on above: Performed By: #### L [id number] ####Business Account Manager: CANDELARIA FREITAS ([phone])[facility] (SBHLAB)[address] [place] [address] BILIRUBIN, TOTAL PRESENCE IN URINE Negative Normal Negative [facility] Comment on above: Performed By: #### L [id number] ####Business Account Manager: CANDELARIA FREITAS ([phone])[facility] (SBHLAB)[address] [place] [address] Clarity (U) Turbid Abnormal Clear [facility] Comment on above: Performed By: #### L [id number] ####Business Account Manager: CANDELARIA FREITAS ([phone])[facility]ITALA [place] (SBHLAB)[address] Color (U) Yellow Normal Lt. Yellow [facility] Comment on above: Performed By: #### L [id number] ####Business Account Manager: CANDELARIA FREITAS ([phone])[facility]ITALA [place] (SBHLAB)[address] [place] [address] [place] GLUCOSE (MG/DL) IN URINE Normal Normal Normal (<70) [facility] Comment on above: Performed By: #### L [id number] ####Business Account Manager: CANDELARIA FREITAS ([phone])[facility]ITALA BARBREHABILITATION HOSP[facility]ON (SBHLAB)[address] HEMOGLOBIN PRESENCE IN URINE 0.06 mg/dL Abnormal Negative [facility] Comment on above: Performed By: #### L [id number] ####Business Account Manager: CANDELARIA FREITAS ([phone])[facility]ITALA BARBREHABILITATION HOSP[facility] (SBHLAB)[address] Ketones Ql (U) Negative Normal Negative [facility] Comment on above: Performed By: #### L [id number] ####Business Account Manager: CANDELARIA FREITAS ([phone])[facility]ITALA BARBREHABILITATION HOSPITAL [facility] S[facility]ON (SBHLAB)[address] LEUKOCYTE ESTERASE PRESENCE IN URINE BY TEST STRIP 500 Ezra/uL Abnormal Negative [facility] Comment on above: Performed By: #### L [id number] ####Business Account Manager: CANDELARIA FREITAS ([phone])[facility]A [place] (SBHLAB)[address] [place] [address] [place] MUCUS (#/LPF) IN URINE SEDIMENT Many Abnormal Negative [facility] Comment on above: Performed By: #### L [id number] ####Business Account Manager: CANDELARIA FREITAS ([phone])[facility]ITALA BARBHONORHE[facility] (SBHLAB)[address] [place] [address] [place] NITRITE PRESENCE IN URINE Negative Normal Negative [facility] Comment on above: Performed By: #### L [id number] ####Business Account Manager: CANDELARIA FREITAS ([phone])[facility]ITALHanna [place] ([facility])[address] pH (U) 6.0 [pH] Normal 5.0-8.0 [facility] Comment on above: Performed By: #### L [id number] ####Business Account Manager: CANDELARIA FREITAS ([phone])[facility] ([facility])[address] Protein (U) [Mass/Vol] 20 mg/dL Abnormal Negative [facility] Comment on above: Performed By: #### L [id number] ####Business Account Manager: CNADELARIA HOFFSARAH ([phone])[facility] ([facility])[address] RBC (#/HPF) IN URINE SEDIMENT 51-100 Abnormal 0-2 [facility] Comment on above: Performed By: #### L [id number] ####Business Account Manager: CANDELARIA FREITAS ([phone])[facility] ([facility])[address] [place] [address] Specific gravity (U) [Rel density] 1.019 Normal 1.005-1.030 [facility] Comment on above: Result Comment: FADIA Moody COMMENTS: This specimen has been reflexed to urine culture. Performed By: #### L [id number] ####Business Account Manager: CANDELARIA FREITAS ([phone])[facility]ITALH[facility] [place] ([facility])[address] SQUAMOUS EPITHELIAL CELLS (#/HPF) IN URINE SEDIMENT 11-25 Abnormal 3-5 [facility] Comment on above: Performed By: #### L [id number] ####Business Account Manager: CANDELARIA FREITAS ([phone])[facility] ([facility])[address] UROBILINOGEN (MG/DL) IN URINE Normal Normal Normal (0-1) [facility] Comment on above: Performed By: #### L [id number] ####Business Account Manager: CANDELARIA FREITAS ([phone])[facility] [place] (SBHLAB)[address] WBC (LEUKOCYTE) (#/HPF) IN URINE SEDIMENT >100 Abnormal 0-5 [facility] Comment on above: Performed By: #### L [id number] ####Business Account Manager: CANDELARIA FREITAS ([phone])[facility] [place] (SBHLAB)[address] COMPREHENSIVE METABOLIC PANE [place] 02-24-2025 Albumin [Mass/Vol] 4.2 g/dL Normal 3.5-5.0 [facility] Comment on above: Performed By: #### L AB17, LAB99 ####Business Account Manager: CANDELARIA FREITAS ([phone])[facility] [place] (SBHLAB)[address] ALP [Catalytic activity/Vol] 130 U/L Normal 40-150 [facility] Comment on above: Performed By: #### L AB17, LAB99 ####Business Account Manager: CANDELARIA FREITAS ([phone])[facility] [place] (SBHLAB)[address] ALT [Catalytic activity/Vol] 21 U/L Normal <30 [facility] Comment on above: Performed By: #### L AB17, LAB99 ####Business Account Manager: CANDELARIA FREITAS ([phone])[facility] [place] (SBHLAB)[address] Anion gap [Moles/Vol] 10 mmol/L Normal 3-13 [facility] Comment on above: Performed By: #### L AB17, LAB99 ####Business Account Manager: CANDELARIA FREITAS ([phone])[facility] [place] (SBHLAB)[address] AST [Catalytic activity/Vol] 19 U/L Normal <34 [facility] Comment on above: Performed By: #### L AB17, LAB99 ####Business Account Manager: CANDELARIA FREITAS ([phone])[facility]A [place] (SBHLAB)[address] Bilirubin [Mass/Vol] 0.9 mg/dL Normal <1.2 [facility] Comment on above: Performed By: #### L AB17, LAB99 ####Business Account Manager: CANDELARIA FREITAS ([phone])[facility] [place] (SBHLAB)[address] Calcium [Mass/Vol] 9.5 mg/dL Normal 8.4-10.2 [facility] Comment on above: Performed By: #### L AB17, LAB99 ####Business Account Manager: CANDELARIA FREITAS ([phone])[facility]ITAL[facility] YOUSSEFN (SBHLAB)[address] Chloride [Moles/Vol] 105 mmol/L Normal 98-107 [facility] Comment on above: Performed By: #### L AB17, LAB99 ####Business Account Manager: CANDELARIA FREITAS ([phone])[facility] [place] (SBHLAB)[address] CO2 [Moles/Vol] 22 mmol/L Normal 22-29 [facility] Comment on above: Performed By: #### L AB17, LAB99 ####Business Account Manager: CANDELARIA FREITAS ([phone])[facility] [place] (SBHLAB)[address] Creatinine [Mass/Vol] 1.18 mg/dL High 0.57-1.11 [facility] Comment on above: Performed By: #### L AB17, LAB99 ####Business Account Manager: CANDELARIA FREITAS ([phone])[facility] [place] (SBHLAB)[address] GLOMERULAR FILTRATION RATE ML/MIN/1.73 SQ M.PREDICTED 58.2 mL/min/1.73m*2 Low >60.0 [facility] Comment on above: Result Comment: Calc ulation based on the Chronic Kidney Disease Epidemiology Collaboration (CKD-EPI) equation refit without adjustment for race Performed By: #### L AB17, LAB99 ####Business Account Manager: CANDELARIA FREITAS ([phone])[facility] [place] (SBHLAB)[address] Glucose [Mass/Vol] 97 mg/dL Normal 74-100 [facility] Comment on above: Performed By: #### L AB17, LAB99 ####Business Account Manager: CANDELARIA FREITAS ([phone])[facility] [place] (SBHLAB)[address] Potassium [Moles/Vol] 4.0 mmol/L Normal 3.5-5.1 [facility] Comment on above: Result Comment: [facility] potassium values may be up to 0.5 mmol/L lower than serum values. Performed By: #### L AB17, LAB99 ####Business Account Manager: CANDELARIA FREITAS ([phone])[facility] [place] (SBHLAB)[address] Protein [Mass/Vol] 7.7 g/dL Normal 6.4-8.3 [facility] Comment on above: Performed By: #### L AB17, LAB99 ####Business Account Manager: CANDELARIA FREITAS ([phone])[facility] [place] (SBHLAB)[address] [place] [address] [place] Sodium [Moles/Vol] 137 mmol/L Normal 136-145 [facility] Comment on above: Performed By: #### L AB17, LAB99 ####Business Account Manager: CANDELARIA FREITAS ([phone])[facility] [place] (SBHLAB)[address] [place] [address] [place] Urea nitrogen [Mass/Vol] 12 mg/dL Normal 8-21 [facility] Comment on above: Performed By: #### L AB17, LAB99 ####Business Account Manager: CANDELARIA FREITAS ([phone])[facility] [place] (SBHLAB)[address] [place] [id number] [facility] Comprehensive metabolic 1998 panelon 02-24-2025 Albumin [Mass/Vol] 4.2 g/dL 3.5 - 5.0 g/dL [facility] ALP [Catalytic activity/Vol] 130 U/L 40 - 150 U/L [facility] ALT [Catalytic activity/Vol] 21 U/L NINF - 30 U/L [facility] Anion gap [Moles/Vol] 10 mmol/L 3 - 13 mmol/L [facility] AST [Catalytic activity/Vol] 19 U/L NINF - 34 U/L [facility] Bilirubin [Mass/Vol] 0.9 mg/dL NINF - 1.2 mg/dL [facility] Calcium [Mass/Vol] 9.5 mg/dL 8.4 - 10. 2 mg/dL [facility] Chloride [Moles/Vol] 105 mmol/L 98 - 10 7 mmol/L [facility] CO2 [Moles/Vol] 22 mmol/L 22 - 29 mmol/L [facility] Creatinine [Mass/Vol] 1.18 mg/dL High 0.57 - 1.11 mg/dL [facility] GFR/1.73 sq M.predicted (S/P/Bld) [Vol rate/Area] 58.2 mL/min Low - PINF [facility] Comment on above: Calculation based on the Chronic Kidney Disease Epidemiology Collaboration (CKD-EPI) equation refit without adjustment for race Glucose [Mass/Vol] 97 mg/dL 74 - 100 mg/dL [facility] Interpretation and review of laboratory results Abnormal [facility] Potassium [Moles/Vol] 4 mmol/L 3.5 - 5.1 mmol/L [facility] Comment on above: Plasma potassium rc ues may be up to 0.5 mmol/L lower than serum values. Protein [Mass/Vol] 7.7 g/dL 6.4 - 8.3 g/dL [facility] Sodium [Moles/Vol] 137 mmol/L 136 - 145 mmol/L [facility] Urea nitrogen [Mass/Vol] 12 mg/dL 8 - 21 mg/dL [facility] ED Provider Noteon ED Provider Note EMERGENCY DEPARTMENT ENCOUNTER Pt Name: Sally Vargas Birthdate 1980 Date of evaluation: 02/24/2025 ED Provider: Mac Harding, CAR ATTENDANT - MANUELITO I have evaluated this patient on my own, per my scope of practice with an attending physician available for consultation. CHIEF COMPLAINT Chief Complaint Patient presents with Pelvic Pain Pt presents to ED for pelvic pain and vaginal discharge. Pt reports pelvic pain has been ongoing since December. Vaginal discharge started two weeks ago. Pt reports vaginal discharge is white with a small amount of blood noted. HISTORY OF PRESENT ILLNESS (Location/Symptom, Timing/Onset, Context/Setting, Quality, Duration, Modifying Factors, Severity) Note limiting factors. I wore appropriate PPE for the entirety of this encounter. HPI Sally Varags is a 44 y.o. who presents to the emergency department with chief complaint of lower abdominal pain/pelvic pain has been ongoing since December. She has been seen for this multiple times in the emergency room since December, known to . Dr. Sunny Story has a history of chronic pelvic pain originally seen in November in the emergency department, seen in December, subsequently had 3 visits in December for this, was seen at [facility] emergency room yesterday had labs and a CAT scan that were unremarkable. She called the call center yesterday and was offered an appointment the same day and then told them she had no money or insurance and then hung up on the call center. She states she waspost to go to a pelvic pain specialist after being referred by Dr. Hearn but could not or cannot because she does not have insurance. She had another phone encounter yesterday where she screamed at the nurses several times and then eventually hung up on them also. She states she is having white vaginal discharge but she is also had a total hysterectomy. She had labs and a CAT scan yesterday at [facility] ER that were unremarkable. She has has had surgeries for a cyst in the past and for her hysterectomy. Nursing Notes were reviewed. Limitations to history: None Outside historians: None REVIEW OF SYSTEMS Review of Systems Constitutional: Negative for activity change, appetite change, chills and fever. HENT: Negative for congestion, nosebleeds, sinus pain and trouble swallowing. Eyes: Negative for pain and visual disturbance. Respiratory: Negative for cough, chest tightness and shortness of breath. Cardiovascular: Negative for chest pain. Gastrointestinal: Positive for abdominal pain. Negative for diarrhea, nausea and vomiting. Genitourinary: Positive for pelvic pain and vaginal discharge. Negative for dysuria, hematuria, vaginal bleeding and vaginal pain. Musculoskeletal: Negative for arthralgias, back pain and myalgias. Skin: Negative for rash and wound. Neurological: Negative for syncope, weakness, light-headedness and headaches. Hematological: Negative for adenopathy. Psychiatric/Behavioral: Negative for agitation and confusion. All other systems reviewed and are negative. Pertinent positives and negatives as per HPI. PAST MEDICAL HISTORY Medical History[1] SURGICAL HISTORY Surgical History[2] CURRENT MEDICATIONS Previous Medications COLESTIPOL (COLESTID) 1 G TABLET Take 1 g by mouth twice a day. DIAZEPAM (VALIUM) [address] one table vaginally nightly as needed for pelvic muscle spasm EPINEPHRINE (EPIPEN) 0.3 MG/0.3ML INJECTION SYRINGE As directed ESTRADIOL (ESTRACE) 0.5 MG TABLET TAKE 1 TABLET BY MOUTH EVERY DAY ESTRADIOL (ESTRACE) 2 MG TABLET Take 1 tablet (2 mg) by mouth daily. GABAPENTIN (NEURONTIN) 300 MG CAPSULE Take 1 capsule (300 mg) by mouth 3 times daily. HYDROCODONE-ACETAMINOPHE N (NORCO) 5-325 MG TABLET Dose = 1 tab(s), Oral, q6h, PRN for pain, tab(s), 0 Refill(s), 95.1 METOCLOPRAMIDE (REGLAN) 10 MG TABLET Take 1 tablet (10 mg) by mouth every 6 hours for 7 days. ONDANSETRON ODT (ZOFRAN-ODT) 4 MG DISINTEGRATING TABLET 4 mg. OXYCODONE (ROXICODONE) 5 MG IMMEDIATE RELEASE TABLET Take 1 tablet (5 mg) by mouth every 8 hours as needed for severe pain (7-10). PANTOPRAZOLE (PROTONIX) 40 MG EC TABLET Take 40 mg by mouth. PAROXETINE (PAXIL) 10 MG TABLET TAKE 1 TABLET (10 MG) BY MOUTH DAILY. PROMETHAZINE (PHENERGAN) 25 MG TABLET 25 mg. SUMATRIPTAN SUCCINATE 6 MG/0.5ML SOLUTION CARTRIDGE Inject 6 mg under the skin. TOPIRAMATE (TOPAMAX) 25 MG TABLET Take 25 mg by mouth twice a day. ALLERGIES Fentanyl, Iodine, Metronidazole, Salicylates, Cephalexin, Gadolinium derivatives, Iodinated contrast media, Naproxen, Nsaids, Ondansetron, Penicillins, Promethazine, Toradol [ketorolac tromethamine], Chlorhexidine, Ciprofloxacin, and Dicyclomine FAMILY HISTORY Family History[3] SOCIAL HISTORY Social History[4] SCREENINGS PHYSICAL EXAM ED Triage Vitals [02/24/25 1112] Temp Heart Rate Resp BP 36.4 ?C (97.5 ?F) 94 16 (!) 135/99 SpO2 Temp Source He (more content not included)... Normal [facility] LIPASEon 02-24-2025 Lipase [Catalytic activity/Vol] 18 U/L Normal <55 [facility] Comment on above: Performed By: #### L [id number], [id number] ####Business Account Manager: CANDELARIA FREITAS ([phone])[facility] ([facility])[address] [place] [address] Laboratory - Chemistry and C hemistry - challengeon 02-24-2025 Lipase [Catalytic activity/Vol] 18 U/L NINF - 55 U/L [facility] Lipase [Catalytic activity/V ol]on 02-24-2025 Interpretation and review of laboratory results Normal [facility] N. gonorrhoeae DNA ABRAM+probe Ql (Cervical mucus)on 02-24-2025 C. trachomatis DNA ABRAM+probe Ql (Unsp spec) Not detected Not Detected [facility] Interpretation and review of laboratory results Normal [facility] N gonorrhoeae, DNA Probe Not detected Not Detected [facility] Methodology: real-ti me PCR This test is intended for medical purposes only and is not intended for the evaluation of suspected sexual abuse or for other forensic purposes. In certain contexts, culture may be required to meet applicable laws and regulations for diagnosis of C. trachomatis and N. gonorrhoeae infections. Per 2014 CDC recommmendations, this test does not include confirmation of positive results by an alternative nucleic acid target. A negative result does not exclude the possibility of infection. A result of invalid indicates that a new specimen should be collected if clinically indicated. [facility] No Panel Informationon 02-24 [facility] Urinalysis complete panel (U )Ordered By: Nancy Contreras on 02-24-2025 Bacteria LM.HPF (Urine sed) [#/Area] Moderate Abnormal Negative /HPF [facility] Bilirubin Ql (U) Negative Negative mg/dL [facility] Clarity (U) Turbid Abnormal Clear [facility] Color (U) Yellow Lt. Yellow [facility] Epithelial cells.squamous LM.HPF (Urine sed) [#/Area] 11-25 Abnormal [facility] Glucose Ql (U) Normal Normal (<70) mg/dL [facility] Hemoglobin Ql (U) 0.06 mg/dL Abnormal Negative [facility] Interpretation and review of laboratory results Abnormal [facility] Ketones (U) [Mass/Vol] Negative Negat melecio mg/dL [facility] Leukocyte esterase Test strip Ql (U) 500 Abnormal Negative Ezra/uL [facility] Mucus LM.HPF (Urine sed) [#/Area] Many Abnormal Negative /LPF [facility] Nitrite Ql (U) Negative Negative [facility] pH (U) 6.0 [pH] 5.0 - 8.0 pH [facility] Protein (U) [Mass/Vol] 20 mg/dL Abnormal Negative [facility] RBC LM.HPF (Urine sed) [#/Area] 51-100 Abnormal [facility] Specific gravity (U) [Rel density] 1.019 1.005 - 1.030 [facility] Urobilinogen (U) [Mass/Vol] Normal Normal (0-1) mg/dL [facility] WBC LM.HPF (Urine sed) [#/Area] /[HPF] Abnormal [facility] This specimen has be en reflexed to urine culture. [facility] VAGINITIS PANEL MVP PCRon VAGINITIS PANEL MVP PCR BACTERIAL VAGINO SIS MVP PCR Reference Not Detected Not Detected PILLO SPP MVP PCR Reference Not Detected Not Detected PILLO GLABRATA/KRUSEI MVP PCR Reference Not Detected Not Detected TRICHOMONAS VAGINALIS MVP PCR (A) Reference Detected Not Detected ORDER COMMENTS: (A) Methodology: real-time PCR A negative result does not preclude a possible infection. This assay can detect the Pillo species C. albicans, C. tropicalis, C. parapsilosis, and C. dubliniensis but does not differentiate among them. The assay also detects C. glabrata and C. krusei, but does not differentiate between them. Results should be interpreted in conjunction with other clinical data. This test has not been validated for use with specimens collected by patients at home. This test is intended for medical purposes only and is not valid for the evaluation of suspected sexual abuse or for other forensic purposes. Normal [facility] Comment on above: Performed By: #### L [id number] #### Business Account Manager: SAGE PEPE ([phone]) [facility] ([facility]) [address] [place] [address] .Auto Diffon 02-23-2025 Basophil, Absolute 0.1 10 3/mcL Normal 0.0-0.3 [facility] Comment on above: Performed By: #### C BC, ADIFF, ANEU, MDW, LIP, GFR, CMP #### [address] [address] Basophils/100 WBC (Bld) 1.1 % Normal 0.0-2.5 [facility] Comment on above: Performed By: #### C BC, ADIFF, ANEU, MDW, LIP, GFR, CMP #### [address] [address] Eosinophil, Absolute 0.2 10 3/mcL Normal 0.0-0.7 [facility] Comment on above: Performed By: #### C BC, ADIFF, ANEU, MDW, LIP, GFR, CMP #### [address] [address] Eosinophils/100 WBC (Bld) 2.1 % Normal 0.0-6.0 [facility] Comment on above: Performed By: #### C BC, ADIFF, ANEU, MDW, LIP, GFR, CMP #### [address] [address] Lymphocyte, Absolute 2.6 10 3/mcL Normal 0.9-4.3 [facility] Comment on above: Performed By: #### C BC, ADIFF, ANEU, MDW, LIP, GFR, CMP #### [address] [address] Lymphocytes/100 WBC (Bld) 30.4 % Normal 20.0-40.0 [facility] Comment on above: Performed By: #### C BC, ADIFF, ANEU, MDW, LIP, GFR, CMP #### [address] [address] Monocyte, Absolute 0.5 10 3/mcL Normal 0.1-1.4 [facility] Comment on above: Performed By: #### C BC, ADDELBERT, ANEU, MDW, LIP, GFR, CMP #### [place] [address] [place], [place] [address] Monocytes/100 WBC (Bld) 5.7 % Normal 2.0-13.0 [facility] Comment on above: Performed By: #### C BC, LETICIA, ANEU, MDW, LIP, GFR, CMP #### [place] [address] [place], [place] [address] Neutrophils/100 WBC (Bld) 60.7 % Normal 50.0-75.0 [facility] Comment on above: Performed By: #### C BC, LETICIA, ANEU, MDW, LIP, GFR, CMP #### [place] [address] [place], [place] [address] .GFRon 02-23-2025 Estimated Glomerular Filtration Rate 69 ml/min/1.73sqm Normal [facility] Comment on above: Result Comment: Stages of Chronic Kidney Disease (CKD) Stage Description eGFR(ml/min/1.73 sq.m.) CKD 1 Normal kidney function or >=90 normal kindney function with possible kidney damage (ex. Proteinuria) CKD 2 Kidney damage with mild loss 60-89 of kidney function CKD 3a Mild to moderate loss of kidney 45-59 function CKD 3b Moderate to severe loss of 30-44 of kindey function CKD 4 Severe loss of kidney function 15-29 CKD 5 Kidney failure <15 Note: (go live 2024) the eGFR calculation was updated to the 2020 CKD-EPI creatinine equation without a race factor to calculate the eGFR results. Performed By: #### C BC, ADDELBERT, ANEU, MDW, LIP, GFR, CMP #### [place] [address] [place], [place] [address] .MDWon 02-23-2025 Monocyte Distribution Width 19.74 Normal 0.00-20.00 [facility] Comment on above: Result Comment: For ED adult patients suspected of sepsis, MDW<=20.0 does not rule out sepsis or risk of sepsis Performed By: #### C BC, ADIFF, ANEU, MDW, LIP, GFR, CMP #### [place] [address] .NEUABSon 02-23-2025 Neutrophil, Absolute 5.1 10 3/mcL Normal 2.3-8.1 [facility] Comment on above: Performed By: #### C BC, ADIFF, ANEU, MDW, LIP, GFR, CMP #### [place] [address] CBCon 02-23-2025 Erythrocyte distribution width (RBC) [Ratio] 13.6 % Normal 11.5-15.5 [facility] Comment on above: Performed By: #### C BC, ADIFF, ANEU, MDW, LIP, GFR, CMP #### [place] [address] Hematocrit (Bld) [Volume fraction] 41.5 % Normal 34.0-46.0 [facility] Comment on above: Performed By: #### C BC, ADIFF, ANEU, MDW, LIP, GFR, CMP #### [place] [address] Hgb 13.8 G/dL Normal 12.0-16.0 [facility] Comment on above: Performed By: #### C BC, ADIFF, ANEU, MDW, LIP, GFR, CMP #### [place] [address] MCH (RBC) [Entitic mass] 29.9 pg Normal 27.0-33.0 [facility] Comment on above: Performed By: #### C BC, ADIFF, ANEU, MDW, LIP, GFR, CMP #### [place] [address] MCHC 33.3 G/dL Normal 32.0-36.0 [facility] Comment on above: Performed By: #### C BC, ADIFF, ANEU, MDW, LIP, GFR, CMP #### [place] [address] [place], [place] [address] MCV (RBC) [Entitic vol] 89.8 fL Normal 80.0-99.0 [facility] Comment on above: Performed By: #### C BC, LETICIA, ANEU, MDW, LIP, GFR, CMP #### [address] [address] Platelet 241 10 3/mcL Normal 150-450 [facility] Comment on above: Performed By: #### C BC, LETICIA, ANEU, MDW, LIP, GFR, CMP #### [address] [address] Platelet mean volume (Bld) [Entitic vol] 8.8 fL Normal 6.6-10.5 [facility] Comment on above: Performed By: #### C BC, ADDELBERT, ANEU, MDW, LIP, GFR, CMP #### [address] [address] RBC 4.62 10 6/mcL Normal 4.10-5.30 [facility] Comment on above: Performed By: #### C BC, LETICIA, ANEU, MDW, LIP, GFR, CMP #### [address] [address] WBC 8.4 10 3/mcL Normal 4.5-10.8 [facility] Comment on above: Performed By: #### C BC, ADDELBERT, ANEU, MDW, LIP, GFR, CMP #### [address] [address] CMPon 02-23-2025 Albumin Level 4.1 G/dL Normal 3.5-5.0 [facility] Comment on above: Performed By: #### C BC, LETICIA, ANEU, MDW, LIP, GFR, CMP #### [address] [address] Albumin/Globulin [Mass ratio] 1.1 {ratio} Normal 1.1-2.5 [facility] Comment on above: Performed By: #### C BC, LETICIA, ANEU, MDW, LIP, GFR, CMP #### [address] [address] ALP [Catalytic activity/Vol] 138 U/L High 40-135 [facility] Comment on above: Performed By: #### C LETICIA DELUCA ANEU, MDW, LIP, GFR, CMP #### [address] [address] ALT [Catalytic activity/Vol] 25 U/L Normal 14-59 [facility] Comment on above: Performed By: #### C LETICIA DELUCA ANEU, MDW, LIP, GFR, CMP #### [address] [address] AST [Catalytic activity/Vol] 15 U/L Normal 10-40 [facility] Comment on above: Performed By: #### C LETICIA DELUCA ANEU, MDW, LIP, GFR, CMP #### [address] [address] Bili Total 0.5 mg/dL Normal 0.2-1.0 [facility] Comment on above: Result Comment: Use of this assay is not recommended for patients undergoing treatment with eltrombopag due to the potential for falsely elevated results. Performed By: #### C LETICIA DELUCA ANEU, MDW, LIP, GFR, CMP #### [address] [address] BUN/Creatinine Ratio 11 ratio Normal 7-27 [facility] Comment on above: Performed By: #### C LETICIA DELUCA ANEU, MDW, LIP, GFR, CMP #### [address] [address] Calcium [Mass/Vol] 9.3 mg/dL Normal 8.4-10.2 [facility] Comment on above: Performed By: #### C LETICIA DELUCA ANEU, MDW, LIP, GFR, CMP #### [address] [address] Chloride [Moles/Vol] 103 mmol/L Normal 98-107 [facility] Comment on above: Performed By: #### C BC, ADIFF, ANEU, MDW, LIP, GFR, CMP #### [address] [address] CO2 [Moles/Vol] 27 mmol/L Normal 22-29 [facility] Comment on above: Performed By: #### C BC, LETICIA, VANESA, MDW, LIP, GFR, CMP #### [place] [id number] Creatinine [Mass/Vol] 1.02 mg/dL High 0.51-0.95 [facility] Comment on above: Performed By: #### C BC, LETICIA, VANESA, MDW, LIP, GFR, CMP #### [place] [address] Electrolyte Balance 9.0 mEq/L Normal 4.0-15.0 [facility] Comment on above: Performed By: #### C SANDRINE, VANESA KELLY MDW, LIP, GFR, CMP #### [place] [address] Globulin 3.9 G/dL Normal 2.7-4.4 [facility] Comment on above: Performed By: #### C SANDRINE, VANESA KELLY MDW, LIP, GFR, CMP #### [place] [address] Glucose [Mass/Vol] 104 mg/dL Normal 70-105 [facility] Comment on above: Performed By: #### C SANDRINE, VANESA KELLY MDW, LIP, GFR, CMP #### [place] [address] Potassium [Moles/Vol] 4.1 mmol/L Normal 3.5-5.1 [facility] Comment on above: Performed By: #### C SANDRINE, VANESA KELLY MDW, LIP, GFR, CMP #### [place] [address] Sodium [Moles/Vol] 139 mmol/L Normal 136-145 [facility] Comment on above: Performed By: #### C BC, VANESA KELLY MDW, LIP, GFR, CMP #### [facility] [address], [place] [address] Total Protein 8.0 G/dL Normal 6.4-8.2 [facility] Comment on above: Performed By: #### C LETICIA DELUCA ANEU, MDW, LIP, GFR, CMP #### [facility] [address], [place] [address] Urea nitrogen [Mass/Vol] 11 mg/dL Normal 7-18 [facility] Comment on above: Performed By: #### C LETICIA DELUCA ANEU, MDW, LIP, GFR, CMP #### [facility] [address], [place] [address] CNPCarly 02-23-2025 CNPN Telephone (BORAWS) -------- SALLY VARGAS ([id number]) 1980 F Date Time Provider Department 02/23/25 MERCED HUTCHINSON During your visit today, we recorded the following information about you: Chanell Friedman, VIN 02/23/2025 8:47 AM Addendum Pt was seen on 02/14/25 by Merced Hutchinson. She was seen for abd pain, difficulty urinating and foul smelling vaginal discharge. Pt called in again on 02/16/25 reporting worsening symptoms. Pt states she went to [facility] ER and they told her since she was being treated with antibiotics that there was nothing they could do for her and sent her home. Pt calling in today stating her abd cramping and abd pain is severe. States when she urinates, she is only urinating a tiny amount-cannot tell if she is emptying her bladder or not. Pt states she is still having copious amounts of the slimy foul smelling bloody vaginal discharge-states she is filling up pads it is so much. Also states she is having significant burning in her vulva area. Per Merced's response on 02/17, Merced states if pain is severe and not able to urinate then she needs to return to the ER or contact her SIGNAL SYSTEM TESTING MAINTAINER provider. Went over these instructions with pt who is very angry and yelled several times that she is not going back to the ER because they won't do anything for her. Asked pt if she contacted her souvenir street vendor provider. Pt states she did and they can't get her in for a couple of months. Instructed pt to go to try a [facility] ER. Pt states she has no $ and no gas in her car and won't be able to make it there. States she has not friends that she can borrow $ from. Pt called several times on 02/17 and wanted Merced to call the ER and tell them what to do. Per Merced, she would not be able to do that. Pt wanting to see Merced only and Gretchen Brown and Dr. Haley are all out of the office today. Reiterated to pt several times of the need for her to go to the ER. Pt still refusing and states they won't do anything for her because she is on antibiotics and she has no $ for gas to go to any other ER. Pt hung up on nurse. Pt does not have insurance and new referral was placed yesterday but had a previous referral where she was cleared through 03/08/25 but that referral is now closed. Checked with Financial counselor Ale Clancy who states pt is cleared until 03/09/25. Paradise Haley RN 02/24/2025 9:16 AM Signed Patient calls today and demanding to have an appointment with provider. Patient reports that she was seen yesterday at [facility] ER and had a CT scan done. Patient reports that it did not show anything. Patient states that no one is doing anything for her. Patient states that she continues to have a lot abdominal pain and discharge. Patient states that she cannot drive because of pain. Patient states that she cannot get into Gynecology for 2 months even with her having all the pain. Offered to schedule appointment with Aury Aceves today, patient states I don't have any insurance or money and patient hangs up. VIN Townsend Rosa, APRN.MANUELITO 02/27/2025 9:03 AM Signed She really does need to follow up with souvenir street vendor, I'm not sure if she could get something set up with [facility] souvenir street vendor sooner. Ashlyn Recio, VIN 02/27/2025 1:10 PM Signed Pt called and is notified of providers message and instructions. Pt voices understanding. She states she went to the [place] ER and and she has an appointment with her OBGYN. Ashyln Recio RN Allergies As of Date: 02/23/2025 Noted Allergy Reaction ASPIRIN 05/26/2019 16 - Unknown PENICILLINS 12/07/2009 2 - Rash CEPHALEXIN 10/20/2019 9 - Itching CHLORHEXIDINE 10/29/2016 2 - Rash Comments: Skin rash CIPROFLOXACIN 01/19/2024 2 - Rash Comments: Unclear if the pruritic areas of rash were related to medication or not, no prior use IODINATED CONTRAST MEDIA 02/09/2023 10 - Anaphylaxis TORADOL (KETOROLAC) 05/25/2020 2 - Rash ASA (SALICYLATES) 01/27/2011 14 - Other: See Comments Comments: ulcers CONTRAST DYE (IODINE) 05/17/2008 12 - Shortness of Breath DICYCLOMINE 04/01/2023 4 - Hives IBUPROFEN 06/18/2016 8 - GI Upset Date Reviewed: 02/14/2025 Reviewed by: Merced Hutchinson APRN.CLASSROOM TEACHER - Fully Assessed Reason for Visit: Continued symptoms [Other] Cmt: urinary problem and vaginal problem Prescriptions as of 02/27/2025 - nitrofurantoin monohydrate and macrocrystal (MACROBID) 100 mg capsule Take 1 capsule by mouth two times a day. - topiramate (TOPAMAX) 25 mg tablet Take 1 tablet by mouth two times a day. - colestipol (COLESTID) 1 gram tablet Take 1 tablet by mouth two times a day. - benzocaine-menthol (CEPACOL) 15-3.6 mg lozg Use 1 Lozenge as instructed every 2 hours as needed. - promethazine (PHENERGAN) 25 mg tablet Take 1 tablet by mouth every 8 hours as needed for nausea/vomiting. - LORazepam (ATIVAN) 0.5 mg Take 1 tablet by mouth once daily as needed. [facility] (more content not included)... Normal [facility] CT ABDOMEN/PELVIS W/O CONTRA STon 02-23-2025 CT ABDOMEN/PELVIS W/O CONTRAST ORIGINAL HISTORY: Pain COMPARISON: 30 November 2024 TECHNIQUE: CT of the abdomen and pelvis with sagittal and coronal reconstructions. This exam was performed according to our departmental dose optimization program, and includes the following measures where applicable: automated exposure control, adjustment of the mAs and/or kVp according to patient size and/or exam, and an iterative reconstruction algorithm. FINDINGS: There is a cholecystectomy. There are multiple hepatic cysts. There are a few punctate calcifications in the left kidney. The remaining abdominal organs are unremarkable in appearance. There is a hysterectomy. Bowel is poorly evaluated in the absence of oral contrast. The appendix is not identified. There is no free fluid. IMPRESSION: No significant interval change. Interpreted by: Teo Mcclellan MD Preliminary Report By: Teo Mcclellan MD Electronically signed By Teo Mcclellan MD Dictated Date: 02/23/2025 9:50:56 AM Prelim Date: 02/23/2025 9:53:48 AM Sign Date: 02/23/2025 9:53:48 AM Ordering Provider: ETHAN Guardado [facility] LABORATORYOrdered By: SYSTEM SYSTEM on 02-23-2025 Albumin BCP dye [Mass/Vol] 4.1 G/dL Normal 3.5 - 5.0 G/dL AO ADM SS Albumin/Globulin [Mass ratio] 1.1 {ratio} Normal 1.1 - 2.5 ratio AO ADM SS ALP [Catalytic activity/Vol] 138 U/L High 40 - 135 U/L AO ADM SS ALT With P-5'-P [Catalytic activity/Vol] 25 U/L Normal 14 - 59 U/L AO ADM SS AST With P-5'-P [Catalytic activity/Vol] 15 U/L Normal 10 - 40 U/L AO ADM SS Basophils (Bld) [#/Vol] 0.1 103/mcL Normal 0.0 - 0.3 10^3/mcL AO Workflow SS Basophils/100 WBC (Bld) 1.1 % Normal 0.0 - 2.5 % AO Workflow SS Bilirubin [Mass/Vol] 0.5 mg/dL Normal 0.2 - 1 .0 mg/dL AO ADM SS Comment on above: Interpretive Data: U se of this assay is not recommended for patients undergoing treatment with eltrombopag due to the potential for falsely elevated results. Calcium [Mass/Vol] 9.3 mg/dL Normal 8.4 - 10. 2 mg/dL AO ADM SS Chloride [Moles/Vol] 103 mmol/L Normal 98 - 10 7 mmol/L AO ADM SS CO2 [Moles/Vol] 27 mmol/L Normal 22 - 29 mmol/L AO ADM SS Creatinine [Mass/Vol] 1.02 mg/dL High 0.51 - 0.95 mg/dL AO ADM SS Electrolyte Balance 9.0 mEq/L Normal 4.0 - 15 .0 mEq/L AO ADM SS Eosinophil, Absolute 0.2 103/mcL Normal 0.0 - 0 .7 10^3/mcL AO Workflow SS Eosinophils/100 WBC (Bld) 2.1 % Normal 0.0 - 6.0 % AO Workflow SS Erythrocyte distribution width (RBC) [Ratio] 13.6 % Normal 11.5 - 15.5 % AO Workflow SS Estimated Glomerular Filtration Rate 69 ml/min/1.73sqm Invalid Interpretation Code AO Chemistry S Comment on above: Interpretive Data: Stages of Chronic Kidney Disease (CKD) Stage Description eGFR(ml/min/1.73 sq.m.) CKD 1 Normal kidney function or >=90 normal kindney function with possible kidney damage (ex. Proteinuria) CKD 2 Kidney damage with mild loss 60-89 of kidney function CKD 3a Mild to moderate loss of kidney 45-59 function CKD 3b Moderate to severe loss of 30-44 of kindey function CKD 4 Severe loss of kidney function 15-29 CKD 5 Kidney failure <15 Note: (go live 2024) the eGFR calculation was updated to the 2020 CKD-EPI creatinine equation without a race factor to calculate the eGFR results. Globulin 3.9 G/dL Normal 2.7 - 4.4 G/dL AO ADM SS Glucose [Mass/Vol] 104 mg/dL Normal 70 - 105 mg/dL AO ADM SS Hematocrit (Bld) [Volume fraction] 41.5 % Normal 34.0 - 46.0 % AO Workflow SS Hemoglobin (Bld) [Mass/Vol] 13.8 G/dL Normal 12.0 - 16.0 G/dL AO Workflow SS Lipase [Catalytic activity/Vol] 37 U/L Normal 16 - 77 U/L AO ADM SS Lymphocytes (Bld) [#/Vol] 2.6 103/mcL Normal 0.9 - 4.3 10^3/mcL AO Workflow SS Lymphocytes/100 WBC (Bld) 30.4 % Normal 20.0 - 40.0 % AO Workflow SS MCH (RBC) [Entitic mass] 29.9 pg Normal 27.0 - 33.0 pg AO Workflow SS MCHC 33.3 G/dL Normal 32.0 - 36.0 G/dL AO Workflow SS MCV (RBC) [Entitic vol] 89.8 fL Normal 80.0 - 99.0 fL AO Workflow SS Monocyte distribution width Auto (Bld) [Entitic vol] 19.74 1 Normal 0.00 - 20.00 AO Workflow SS Comment on above: Result Comment: For ED adult patients suspected of sepsis, MDW<=20.0 does not rule out sepsis or risk of sepsis Monocytes (Bld) [#/Vol] 0.5 103/mcL Normal 0.1 - 1.4 10^3/mcL AO Workflow SS Monocytes/100 WBC (Bld) 5.7 % Normal 2.0 - 13.0 % AO Workflow SS Neutrophils (Bld) [#/Vol] 5.1 103/mcL Normal 2.3 - 8.1 10^3/mcL AO Workflow SS Neutrophils/100 WBC (Bld) 60.7 % Normal 50.0 - 75.0 % AO Workflow SS Platelet mean volume (Bld) [Entitic vol] 8.8 fL Normal 6.6 - 10.5 fL AO Workflow SS Platelets (Bld) [#/Vol] 241 103/mcL Normal 150 - 450 10^3/mcL AO Workflow SS Potassium [Moles/Vol] 4.1 mmol/L Normal 3.5 - 5.1 mmol/L AO ADM SS Protein [Mass/Vol] 8.0 G/dL Normal 6.4 - 8.2 G/dL AO ADM SS RBC (Bld) [#/Vol] 4.62 106/mcL Normal 4.10 - 5.3 0 10^6/mcL AO Workflow SS Sodium [Moles/Vol] 139 mmol/L Normal 136 - 145 mmol/L AO ADM SS Urea nitrogen [Mass/Vol] 11 mg/dL Normal 7 - 18 mg/dL AO ADM SS Urea nitrogen/Creatinine [Mass ratio] 11 ratio Normal 7 - 27 ratio AO ADM SS WBC (Bld) [#/Vol] 8.4 103/mcL Normal 4.5 - 10.8 10^3/mcL AO Workflow SS LABORATORYOrdered By: Willie Pratt on 02-23-2025 Appearance (U) Clear (02/23/25 9:08 AM) Normal Clear AO Auto Urine SS Bacteria LM.HPF (Urine sed) [#/Area] Trace /HPF Invalid Interpretation Code Negative AO Auto Urine SS Bilirubin Ql (U) Negative (02/23/25 9:08 AM) Normal Negative AO Auto Urine SS Color (U) Yellow (02/23/25 9:08 AM) Normal AO Auto Urine SS Glucose Test strip (U) [Mass/Vol] Negative Normal Negative AO Auto Urine SS HCG ( test) Ql Negative (02/23/25 9:08 AM) Normal AO Manual Urine SS Hemoglobin Auto test strip (U) [Mass/Vol] Trace (02/23/25 9:08 AM) Normal Negative AO Auto Urine SS Ketones Ql (U) Negative Normal Negative AO Auto Urine SS test (u) int Not detected Invalid Interpretation Code AO Manual Urine SS UA Leuk Est Large *ABN* (02/23/25 9:08 AM) Invalid Interpretation Code Negative AO Auto Urine SS UA Nitrite Negative (02/23/25 9:08 AM) Normal Negative AO Auto Urine SS UA pH 6.5 (02/23/25 9:08 AM) Normal 5.0 - 8.0 AO Auto Urine SS UA Protein Negative Normal Negative AO Auto Urine SS UA RBC 0-2 /HPF Normal 0-2 AO Auto Urine SS UA Spec Grav <=1.005 *ABN* (02/23/25 9:08 AM) Invalid Interpretation Code 1.015-1.025 AO Auto Urine SS UA Specimen Type Clean Catch (02/23/25 9:08 AM) Normal AO Auto Urine SS UA Squam Epithelial 3-5 /HPF Normal 0-20 AO Au to Urine SS UA Urobilinogen 0.2 E.U./dL Normal 0.2-1.0 AO Auto Urine SS WBC LM.HPF (Urine sed) [#/Area] 10-20 /HPF Invalid Interpretation Code 0-5 AO Auto Urine SS LIPon 02-23-2025 Lipase Level 37 U/L Normal 16-77 [facility] Comment on above: Performed By: #### C BC, ADIFF, ANEU, MDW, LIP, GFR, CMP #### [address] [address] No Panel Informationon 02-23 Culture Urine Specimen received in lab. [facility] Work Phone: PREGUon 02-23-2025 HCG ( test) Ql (U) Negative Normal [facility] Comment on above: Performed By: #### U A, UAMICAO #### [place] [address] test (u) int Not detected Invalid Interpretation Code [facility] Comment on above: Performed By: #### U A, UAMICAO #### [place] [id number] UAon 02-23-2025 Color (U) Yellow Normal [facility] Comment on above: Performed By: #### U A, UAMICAO #### [place] [address] Glucose (U) [Mass/Vol] Negative Normal Negative [facility] Comment on above: Performed By: #### U A, UAMICAO #### [address] [address] Ketones Ql (U) Negative Normal Negative [facility] Comment on above: Performed By: #### U A, UAMICAO #### [place] [address] UA Appear Clear Normal Clear [facility] Comment on above: Performed By: #### U A, UAMICAO #### [address] [address] UA Blood Trace Normal Negative [facility] Comment on above: Performed By: #### U A, UAMICAO #### [place] [address] UA Leuk Est Large Abnormal Negative [facility] Comment on above: Performed By: #### U A, UAMICAO #### [place] [address] UA Nitrite Negative Normal Negative [facility] Comment on above: Performed By: #### U A UAMICAO #### [address] [address] UA pH 6.5 Normal 5.0 - 8.0 [facility] Comment on above: Performed By: #### U A UAMICAO #### [address] [address] UA Protein Negative Normal Negative [facility] Comment on above: Performed By: #### U Hanna UAMICAO #### [address] [address] UA Spec Grav <=1.005 Abnormal 1.015-1.025 [facility] Comment on above: Performed By: #### U Hanna UAMICAO #### [place] [address] UA Urobilinogen 0.2 E.U./dL Normal 0.2-1.0 [facility] Comment on above: Performed By: #### U Hanna UAMICAO #### [place] [address] Urobilinogen (U) [Mass/Vol] Negative Normal Negative [facility] Comment on above: Performed By: #### U Hanna UAMICAO #### [address] [address] UA Specimen Type Clean Catch Normal [facility] Comment on above: Performed By: #### U Hanna UAMICAO #### [address] [address] UAMICon 02-23-2025 UA Bacteria Trace Abnormal Negative [facility] Comment on above: Performed By: #### U Hanna UAMICAO #### [place] [address] UA RBC 0-2 Normal 0-2 [facility] Comment on above: Performed By: #### U A UAMICAO #### [place] [address] UA Squam Epithelial 3-5 Normal 0-20 [facility] Comment on above: Performed By: #### U A, UAMICAO #### [place] [address] [place], [place] [address] UA WBC 10-20 Abnormal 0-5 [facility] Comment on above: Performed By: #### U A, UAMICAO #### [place] [address] [place], [place] [address] LABORATORYOrdered By: Eric England on 02-19-2025 Appearance (U) Clear (02/19/25 10:33 AM) Normal Clear AO Auto Urine SS Bacteria LM.HPF (Urine sed) [#/Area] 2 /[HPF] Invalid Interpretation Code Negative AO Auto Urine SS Bilirubin Ql (U) Negative (02/19/25 10:33 AM) Normal Negative AO Auto Urine SS Color (U) Yellow (02/19/25 10:33 AM) Normal AO Auto Urine SS Glucose Test strip (U) [Mass/Vol] Negative Normal Negative AO Auto Urine SS HCG ( test) Ql Negative (02/19/25 10:33 AM) Normal AO Manual Urine SS Hemoglobin Auto test strip (U) [Mass/Vol] Small *ABN* (02/19/25 10:33 AM) Invalid Interpretation Code Negative AO Auto Urine SS Ketones Ql (U) Negative Normal Negative AO Auto Urine SS test (u) int Not detected Invalid Interpretation Code AO Manual Urine SS UA Leuk Est Large *ABN* (02/19/25 10:33 AM) Invalid Interpretation Code Negative AO Auto Urine SS UA Nitrite Negative (02/19/25 10:33 AM) Normal Negative AO Auto Urine SS UA pH 6.0 (02/19/25 10:33 AM) Normal 5.0 - 8.0 AO Auto Urine SS UA Protein Negative Normal Negative AO Auto Urine SS UA RBC 5-10 /HPF Invalid Interpretation Code 0-2 AO Auto Urine SS UA Spec Grav 1.010 *ABN* (02/19/25 10:33 AM) Invalid Interpretation Code 1.015-1.025 AO Auto Urine SS UA Specimen Type Not Given (02/19/25 10:33 AM) Normal AO Auto Urine SS UA Squam Epithelial 3-5 /HPF Normal 0-20 AO Au to Urine SS UA Trichomonas Present /HPF Invalid Interpretation Code AO Auto Urine SS UA Urobilinogen 0.2 E.U./dL Normal 0.2-1.0 AO Auto Urine SS WBC LM.HPF (Urine sed) [#/Area] 25-50 /HPF Invalid Interpretation Code 0-5 AO Auto Urine SS No Panel Informationon 02-19 Culture Urine Specimen received in lab. [facility] Work Phone: PREGUon 02-19-2025 HCG ( test) Ql (U) Negative Normal [facility] Comment on above: Performed By: #### U A, UAMICAO #### [place] [address] test (u) int Not detected Invalid Interpretation Code [facility] Comment on above: Performed By: #### U A, UAMICAO #### [place] [address] UAon 02-19-2025 Color (U) Yellow Normal [facility] Comment on above: Performed By: #### U A, UAMICAO #### [place] [address] Glucose (U) [Mass/Vol] Negative Normal Negative [facility] Comment on above: Performed By: #### U A, UAMICAO #### [place] [address] Ketones Ql (U) Negative Normal Negative [facility] Comment on above: Performed By: #### U A, UAMICAO #### [place] [address] UA Appear Clear Normal Clear [facility] Comment on above: Performed By: #### U A, UAMICAO #### [place] [address] UA Blood Small Abnormal Negative [facility] Comment on above: Performed By: #### U A, UAMICAO #### [place] [address] UA Leuk Est Large Abnormal Negative [facility] Comment on above: Performed By: #### U A, UAMICAO #### [address] [address] UA Nitrite Negative Normal Negative [facility] Comment on above: Performed By: #### U A, UAMICAO #### [place] [address] UA pH 6.0 Normal 5.0 - 8.0 [facility] Comment on above: Performed By: #### U A, UAMICAO #### [place] [address] UA Protein Negative Normal Negative [facility] Comment on above: Performed By: #### U A, UAMICAO #### [place] [address] UA Spec Grav 1.010 Abnormal 1.015-1.025 [facility] Comment on above: Performed By: #### U A, UAMICAO #### [place] [address] UA Specimen Type Not Given Normal [facility] Comment on above: Performed By: #### U A, UAMICAO #### [place] [address] UA Urobilinogen 0.2 E.U./dL Normal 0.2-1.0 [facility] Comment on above: Performed By: #### U A, UAMICAO #### [place] [address] Urobilinogen (U) [Mass/Vol] Negative Normal Negative [facility] Comment on above: Performed By: #### U A, UAMICAO #### [place] [address] UAMICon 02-19-2025 UA Bacteria 2+ /hpf Abnormal Negative [facility] Comment on above: Performed By: #### U A, UAMICAO #### [place] [address] UA RBC 5-10 Abnormal 0-2 [facility] Comment on above: Performed By: #### U A, UAMICAO #### [address] [place], [place] [address] UA Squam Epithelial 3-5 Normal 0-20 [facility] Comment on above: Performed By: #### U A, UAMICAO #### [facility] [address] [place], [place] [address] UA Trichomonas Present Abnormal [facility] Comment on above: Performed By: #### U A, UAMICAO #### [place] [address] [place], [place] [address] UA WBC 25-50 Abnormal 0-5 [facility] Comment on above: Performed By: #### U A, UAMICAO #### [place] [address] [place], [place] [address] [place] [facility] -------- SALLY VARGAS ([id number]) 1980 F Date Time Provider Department 02/16/25 MERCED HUTCHINSON During your visit today, we recorded the following information about you: Ashlyn Recio, RN 02/16/2025 11:49 AM Signed Pt called in and reports the vaginal discharge and pain are worse. She states she can't even urinate it's so painful, she states it feels like it is on fire down there. Pt states she had to leave work early today and will probably lose her job. She states she has been pushing water and cranberry juice. She states the antibiotics are making her stomach worse. Pt reports she went to the [facility] the same night she went in to see Merced Hutchinson POWER HOUSE ENGINEER because of the pain. She states they hooked her up to an IV and did blood work and told her the same thing Merced did that she had a UTI. I let her know if symptoms were getting worse she would need to be seen. Pt just wanted to send message to provider. Pt notified that if she isn't able to urinate to go to the ER as she might need to be straight cathed or have a dooley placed. Please call and advise. VIN Chau Krystle, RN 02/16/2025 12:05 PM Signed Patient calls back to report that she received a voicemail message from Merced Hutchinson's office that she needed to go to the ER for catheter placement. Reviewed previous notes that say if she is not able to urinate then that would be recommended and patient reports that she is absolutely not going to go to the ER for catheter placement even if she is not able to void. She reports she would have to be knocked out cold before that would happen. Notified that if she is not able to void at all for more than 4 hours and bladder feels full that we would recommend ER evaluation and they would determine further steps (triage protocol recommendation). OV notes say to return if symptoms worsen or fail to improve. Chose not to schedule at this time. Patient just wants Merced to be aware. See below for further detail. 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 Since she has been on treatment for a few days, please get an update on how she is feeling/doing today. Ashlyn Recio RN 02/17/2025 11:10 AM Signed Pt called and is notified of providers message and instructions. Pt states she feels the same way. She is in pain and can't pee. She states,I'm not going to [facility] they think I'm just there for pain medicine and treat me like shit. I'm not going to the ER and no one wants to help me. I can't pee. If I I , Oh well.. Then Pt hung up on me. VIN Chau Julia, LPN 02/17/2025 11:19 AM Signed Spoke with patient and as soon as she realized who was calling she stated I'm not going to no ER and I am having no catheter inserted unless they put me out. [facility] ER will not do anything for me. Patient did state that she still has yet to urinate and made comment that she was trying to make money. Call ended before suggestion could be made to visit [facility]. Ivanna Torre RN 02/17/2025 1:00 PM Signed Patient calls back to let provider know that she will go to the ER only if provider herself calls to say she is coming and to tell the ER staff that she is in pain and she doesn't need a catheter. Patient plans to go to [facility] ER. Attempted to discuss further with patient and she disconnected the line. VIN Hood Rosa, APRN.MANUELITO 02/17/2025 2:45 PM Signed Okay with whatever ER she prefers but I cannot say if she needs or does not need a catheter. If she is not urinating she likely needs one to help decompress the bladder. That would be at the discretion of the ER provider. Allergies As of Date: 02/16/2025 Noted Allergy Reaction ASPIRIN 05/26/2019 16 - Unknown PENICILLINS 12/07/2009 2 - Rash CEPHALEXIN 10/20/2019 9 - Itching CHLORHEXIDINE 10/29/2016 2 - Rash Comments: Skin rash CIPROFLOXACIN 01/19/2024 2 - Rash Comments: Unclear if the pruritic areas of rash were related to medication or not, no prior use IODINATED CONTRAST MEDIA 02/09/2023 10 - Anaphylaxis TORADOL (KETOROLAC) 05/25/2020 2 - Rash ASA (SALICYLATES) 01/27/2011 14 - Other: See Comments Comments: ulcers CONTRAST DYE (IODINE) 05/17/2008 12 - Shortness of Breath DICYCLOMINE 04/01/2023 4 - Hives IBUPROFEN 06/18/2016 8 - GI Upset Date Reviewed: 02/14/2025 Reviewed by: Merced Hutchinson APRN.CLASSROOM TEACHER - Fully Assessed Reason for Visit: Patient Update [1234] Prescriptions as of 02/17/2025 - nitrofurantoin monohydrate and macrocrystal (MACROBID) 100 mg capsule Take 1 capsule by mouth two times a day. - metroNIDAZOLE (FLAGYL) 500 mg tablet Take 1 tablet by mouth two times a day for 7 days. - (more content not included)... Normal [facility] Bacteria Ur Culton 5 Bacteria identified Cx Nom (U) ORGANISM ID: 1 <10,000 CFU/ml Normal urogenital pilar Streptococcus agalactiae (Group B streptococcus) was identified in this specimen, which is clinically relevant if the individual is . Normal [facility] Comment on above: Performed By: #### 6 30-4 ####[facility] LABCLIA [id number] [address] [facility] [place] [facility] CBC + DIFFon 02-14-2025 Baso # 0.01 x10EE3/UL Normal 0.00 - 0.10 [facility] Comment on above: Performed By: #### 2 30831 ####[facility],[address] [place] [address] Basophils/100 WBC (Bld) 0.1 % Normal 0.0 - 2.0 [facility] Comment on above: Performed By: #### 2 47564 ####[facility],[address] [place], [place] [id number] CBC + DIFF Normal [facility] Comment on above: Result Comment: CBC- COMPLETE BLOOD COUNT Performed By: #### 2 27455 ####[facility],[address] [place] [address] EO # 0.08 x10EE3/UL Normal 0.00 - 0.50 [facility] Comment on above: Performed By: #### 2 27941 ####[facility],[address] [place] [address] Eosinophils/100 WBC (Bld) 0.7 % Normal 0.0 - 7.0 [facility] Comment on above: Performed By: #### 2 46839 ####[facility],[address] [place], [place] [id number] Erythrocyte distribution width (RBC) [Ratio] 13.0 % Normal 12.0 - 15.6 [facility] Comment on above: Performed By: #### 2 26541 ####[facility],[address] [place], [place] [id number] Hematocrit (Bld) [Volume fraction] 39.8 % Normal 34.0 - 46.0 [facility] Comment on above: Performed By: #### 2 80685 ####[facility],[address] [place], [place] [id number] Hemoglobin (Bld) [Mass/Vol] 13.9 g/dL Normal 12.0 - 16.0 [facility] Comment on above: Performed By: #### 2 72787 ####[facility],[address] [place] [address] Lymph # 1.11 x10EE3/UL Normal 0.80 - 2.80 [facility] Comment on above: Performed By: #### 2 97811 ####[facility],[address] [place], [place] [address] Lymphocytes/100 WBC (Bld) 10.6 % Low 20.0 - 45.0 [facility] Comment on above: Performed By: #### 2 37901 ####[facility],[address] [place] [address] MANUAL DIFF N/A Normal [facility] Comment on above: Performed By: #### 2 26913 ####[facility],[address] [place], [place] [id number] MCH (RBC) [Entitic mass] 31 pg Normal 27 - 33 [facility] Comment on above: Performed By: #### 2 82193 ####[facility],[address] [place], [place] [id number] MCHC 35 X10 3 Normal 32 - 36 [facility] Comment on above: Performed By: #### 2 42178 ####[facility],[address] [place] [address] MCV (RBC) [Entitic vol] 89 fL Normal 80 - 99 [facility] Comment on above: Performed By: #### 2 32469 ####[facility],[address] [place] [address] [place]as # 0.09 x10EE3/UL Low 0.20 - 1.00 [facility] Comment on above: Performed By: #### 2 71728 ####[facility],[address] [place] [address] MONOS % 0.9 % Normal 0.0 - 10.0 [facility] Comment on above: Performed By: #### 2 98024 ####[facility],[address] [place] [address] Morphology Adrian (Bld) [Interp] N/A Normal [facility] Comment on above: Performed By: #### 2 71170 ####[facility],[address] [place] [address] Neut # 9.15 x10EE3/UL High 1.50 - 7.10 [facility] Comment on above: Performed By: #### 2 43885 ####[facility],[address] [place] [address] Neutrophils/100 WBC (Bld) 87.7 % High 46.0 - 76.0 [facility] Comment on above: Performed By: #### 2 27601 ####[facility],[address] [place] [address] PLATELET 275 x10EE3/UL Normal 150 - 450 [facility] Comment on above: Performed By: #### 2 97543 ####[facility],[address] [place] [address] Platelet mean volume (Bld) [Entitic vol] 9.5 fL Normal 6.6 - 10.5 [facility] Comment on above: Result Comment: AUTO MATED DIFFERENTIAL Performed By: #### 2 81519 ####[facility],[address] [place] [address] RBC 4.46 x 10EE6/UL Normal 4.10 - 5.30 [facility] Comment on above: Performed By: #### 2 95167 ####[facility] [facility],[address] [place] [address] 21400 WBC 10.4 x 10EE3/UL Normal 4.5 - 10.8 [facility] Comment on above: Performed By: #### 2 78099 ####[facility],[address] [place] [address] 37400 CMP with eGFRon 02-14-2025 AGE 44 years Normal [facility] Comment on above: Performed By: #### 2 13494 ####[facility],[address] [place] [address] 56351 Albumin [Mass/Vol] 4.0 g/dL Normal 3.4 - 5.0 [facility] Comment on above: Performed By: #### 2 79809 ####[facility],[address] [place] [address] 96559 Albumin/Globulin [Mass ratio] 0.9 {ratio} Normal 0.9 - 1.6 [facility] Comment on above: Performed By: #### 2 88749 ####[facility],[address] [place] [address] 75561 ALK PHOS 141 U/L High 46 - 116 [facility] Comment on above: Performed By: #### 2 01024 ####[facility],[address] [place] [address] 19435 ALT [Catalytic activity/Vol] 26 U/L Normal 16 - 63 [facility] Comment on above: Performed By: #### 2 68442 ####[facility],[address] [place] [address] 48916 Anion gap [Moles/Vol] 17 mmol/L Normal 10 - 20 [facility] Comment on above: Performed By: #### 2 35856 ####[facility],[address] [place] [address] 91828 AST [Catalytic activity/Vol] 30 U/L Normal 13 - 39 [facility] Comment on above: Performed By: #### 2 84576 ####[facility],[address] [place] [address] 45615 B/C RATIO 11 ratio Normal 0 - 30 [facility] Comment on above: Performed By: #### 2 67785 ####[facility],[address] [place] [address] 16643 Bilirubin [Mass/Vol] 0.7 mg/dL Normal 0.2 - 1.0 [facility] Comment on above: Performed By: #### 2 09952 ####[facility],[address] [place] [address] 04035 Calcium [Mass/Vol] 9.7 mg/dL Normal 8.5 - 10.1 [facility] Comment on above: Performed By: #### 2 70894 ####[facility],[address] [place] [address] 45873 Chloride [Moles/Vol] 105 mmol/L Normal 98 - 107 [facility] Comment on above: Performed By: #### 2 32204 ####[facility],[address] [place] [address] 04524 CMP with eGFR Normal [facility] Comment on above: Result Comment: COMP REHENSIVE METABOLIC PANEL Performed By: #### 2 98933 ####[facility],[address] [place] [address] 52647 CO2 [Moles/Vol] 23.3 mmol/L Normal 21.0 - 32.0 [facility] Comment on above: Performed By: #### 2 10068 ####[facility],[address] [place] [address] 43750 Creatinine [Mass/Vol] 1.08 mg/dL High 0.55 - 1.02 [facility] Comment on above: Performed By: #### 2 46556 ####[facility],[address] [place] [address] 14520 eGFR 55 ML/MINUTE Low 60 - 999 [facility] Comment on above: Performed By: #### 2 40024 ####[facility],[address] [place] [address] 66879 GFR/1.73 sq M.predicted among non-blacks MDRD (S/P/Bld) [Vol rate/Area] mL/min/{1.73_m2} Normal 60 - 999 [facility] Comment on above: Result Comment: ACCO RDING TO THE NATIONAL KIDNEY DISEASE EDUCATION PROGRAM(NKDE), A NORMAL eGFRIS A VALUE GREATER THAN OR EQUAL TO 60 ML/MIN/1.73 SQ METERS.CHRONIC KIDNEY DISEASE: <60mL/MIN/1.73 SQ METERSKIDNEY FAILURE: <15mL/MIN/1.73 SQ METERSTHIS TEST SHOULD ONLY BE USED FOR PATIENTS 18 YEARS OF AGE AND OLDER. Performed By: #### 2 09716 ####[facility],[address] [place] [address] 02923 Globulin (S) [Mass/Vol] 4.3 g/dL High 1.5 - 3.8 [facility] Comment on above: Performed By: #### 2 98796 ####[facility],[address] [place] [address] 41001 Glucose [Mass/Vol] 142 mg/dL High 74 - 106 [facility] Comment on above: Performed By: #### 2 55007 ####[facility],[address] [place] [address] 69748 Potassium [Moles/Vol] 4.4 mmol/L Normal 3.5 - 5.1 [facility] Comment on above: Performed By: #### 2 95625 ####[facility],[address] [place] [address] 53403 Protein [Mass/Vol] 8.3 g/dL High 6.4 - 8.2 [facility] Comment on above: Performed By: #### 2 77066 ####[facility],[address] [place] [address] 81361 Sodium [Moles/Vol] 141 mmol/L Normal 136 - 145 [facility] Comment on above: Performed By: #### 2 71790 ####[facility],[address] [place] [address] 98445 Urea nitrogen [Mass/Vol] 12 mg/dL Normal 7 - 18 [facility] Comment on above: Performed By: #### 2 97087 ####[facility],[address] [place] [address] 23765 CNCOon 02-14-2025 CNCO Letter Text Normal [facility] CNOVon 02-14-2025 CNOV Office Visit (INTMWS ) -------- SALLY VARGAS ([id number]) 1980 F Date Time Provider Department 02/14/25 11:20 AM MERCED HUTCHINSON INTNunuWS During your visit today, we recorded the following information about you: Pulse Blood pressure Weight 82/minute 128/76 90.7 kg Merced Hutchinson APRN.CLASSROOM TEACHER 02/14/2025 11:38 AM Signed SUBJECTIVE Sally Vargas is a 44 year old female here today for acute concern. Chief Complaint Patient presents with: Abdominal Pain: started on Thursday with slimy foul smelling discharge denies any recent intercourse HPI Sally is a 44-year-old female presenting with dysuria, vaginal discharge, and abdominal cramping. Sally reports onset of symptoms on Thursday, beginning with dysuria and a frequent urge to urinate without burning sensation. She increased her water and cranberry juice intake, but symptoms persisted. On Thursday, she began experiencing abdominal cramping and noticed bloody, malodorous, mucous-like vaginal discharge. She attempted to alleviate symptoms by using a douche and applying Bacteroides, which provided minimal relief. By Thursday, the discharge had increased in volume, soaking through her underwear and pants, necessitating multiple clothing changes and the use of a pad. The discharge was described as slimy, white, and occasionally blood-tinged. On Thursday, Sally attempted to work at [employer] but had to leave early due to severe cramping and worsening pain, described as similar to menstrual cramps, despite being postmenopausal. She denies current menstruation. Last night, the pain became intolerable, and she was advised by a friend to seek emergency care, but she opted to call her doctor instead. She is unable to manage the pain with Tylenol and is concerned about her ability to work. Sally has a history of bacterial vaginosis, diagnosed in December via a vaginal swab, but reports not receiving treatment. She denies any pelvic exam being performed at that time. She also reports a longstanding issue with a painful, enlarging hemorrhoid that bleeds significantly during bowel movements. She has tried various treatments, including hydrocortisone creams and witch amada wipes, without relief. Her medications were reviewed today and her list is now up to date. Medications Current Outpatient Medications Medication Sig topiramate (TOPAMAX) 25 mg tablet Take 1 tablet by mouth two times a day. colestipol (COLESTID) 1 gram tablet Take 1 tablet by mouth two times a day. benzocaine-menthol (CEPACOL) 15-3.6 mg lozg Use 1 Lozenge as instructed every 2 hours as needed. promethazine (PHENERGAN) 25 mg tablet Take 1 tablet by mouth every 8 hours as needed for nausea/vomiting. LORazepam (ATIVAN) 0.5 mg Take 1 tablet by mouth once daily as needed. [facility] escitalopram oxalate (LEXAPRO) 20 mg tablet Take 1 tablet by mouth once daily. [facility]. ARIPiprazole (ABILIFY) 10 mg tablet Take 1 tablet by mouth once daily. [facility]. pantoprazole DR (PROTONIX) 40 mg tablet Take 1 tablet by mouth daily before breakfast. Take on empty stomach, 1/2 hr before meal. sodium chloride (SALINE NASAL) 0.65 % nasal spray Use 1 [place] in the nose as needed. etodolac (LODINE) 400 mg tablet Take 1 tablet by mouth two times a day as needed. albuterol HFA (VENTOLIN HFA) 90 mcg/actuation inhaler Inhale 2 Puffs as instructed every 4 hours as needed for wheezing/shortness of breath. Cholecalciferol, Vitamin D3, 50 mcg (2,000 unit) cap Take 1 capsule by mouth once daily. SUMAtriptan (IMITREX STATDOSE PEN) 6 mg/0.5 mL pen Inject 0.5 mL subcutaneously as needed for migraine headache (see administration instructions). May repeat dose after 1 hour if needed. Maximum daily dose is 12 mg per day. diphenhydrAMINE (BENADRYL) 25 mg capsule Take 50 mg by mouth at bedtime as needed. nitrofurantoin monohydrate and macrocrystal (MACROBID) 100 mg capsule Take 1 capsule by mouth two times a day. metroNIDAZOLE (FLAGYL) 500 mg tablet Take 1 tablet by mouth two times a day for 7 days. gabapentin (NEURONTIN) 400 mg capsule Take 1 capsule by mouth every 12 hours for 90 days. No current facility-administered medications for this visit. ALLERGIES Allergen Reactions Aspirin Unknown Penicillins Rash Cephalexin Itching Chlorhexidine Rash Skin rash Ciprofloxacin Rash Unclear if the pruritic areas of rash were related to medication or not, no prior use Iodinated Contrast * Anaphylaxis Toradol [Ketorolac] Rash Asa [Salicylates] Other: See Comments ulcers Contrast Dye [Iodin* Shortness of Breath Dicyclomine Hives Ibuprofen GI Upset ACTIVE PROBLEM LIST Pain of Multiple Sites - 04/11/2021 (Mild priority) Comment: No Narcotics from the Office: Patient has a long standing Hx of complaints of multiple areas of pain with negative work ups. Patient (more content not included)... Normal [facility] ED MED ADMINISTRATION DETAIL on 02-14-2025 ED MED ADMINISTRATION DETAIL Normal [facility] ED NURSES CLINICAL NOTEon ED NURSES CLINICAL NOTE Normal J l Replaced By [facility] ED ORDER SHEET (CPOE ONLY)on 02-14-2025 ED ORDER SHEET (CPOE ONLY) Normal [facility] ED PHYSICIAN CLINICAL REPORT on 02-14-2025 ED PHYSICIAN CLINICAL REPORT Normal [facility] ED SUPER BILLon 02-14-2025 ED SUPER BILL Normal [facility] ED VISIT SUMMARYon ED VISIT SUMMARY Normal [facility] ED VITALS FLOW SHEETon 02-14 ED VITALS FLOW SHEET Normal [facility] LACTATEon 02-14-2025 Lactate [Moles/Vol] 1.6 mmol/L Normal 0.4 - 2.0 [facility] Comment on above: Performed By: #### 2 98761 ####[facility],[address] [place] [address] UA DIP, URINE (POC)on 2024 BILIRUBIN UA (POCT) Negative Negative [facility] CLARITY UA (POCT) [facility] COLOR UA (POCT) Light yellow [facility] GLUCOSE UA (POCT) Negative Negative mg/dL [facility] Hemoglobin Ql (U) Trace-intact Abnormal Negative [facility] Interpretation and review of laboratory results Abnormal [facility] KETONE UA (POCT) Negative Negative mg/dL [facility] LEUKOCYTES UA (POCT) Large Abnormal Negative [facility] NITRITE UA (POCT) Negative Negative [facility] PH UA (POCT) 6 4.5 - 8.0 [facility] Protein Ql (U) Negative Negative mg/dL [facility] SPECIFIC GRAVITY UA (POCT) 1.01 1.005 - 1.030 [facility] UROBILINOGEN UA (POCT) 0.2 Nataly l E.U./dL [facility] Location:[address], [place], [place], [address] [place] [address] POINT OF CARE [facility] URINALYSISon 02-14-2025 Amorphous NONE Normal [facility] Comment on above: Performed By: #### 2 14001 ####[facility],[address] [place] [address] Bacteria 2+ Normal [facility] Comment on above: Result Comment: TRIC HOMONAS PRESENT Performed By: #### 2 75264 ####[facility],[address] [place] [address] Bilirubin Ql (U) Negative Normal NORMAL: NEGATIVE [facility] Comment on above: Performed By: #### 2 41598 ####[facility],[address] [place] [address] Casts NONE Normal [facility] Comment on above: Performed By: #### 2 00985 ####[facility],[address] [place] [address] 10739 Clarity (U) very cloudy Normal NORMAL: CLEAR [facility] Comment on above: Performed By: #### 2 02621 ####[facility],[address] [place] [address] 12631 Color (U) yellow Normal NORMAL: YELLOW [facility] Comment on above: Performed By: #### 2 87164 ####[facility],[address] [place], [place] [id number] Crystals LM Nom (Urine sed) NONE Normal [facility] Comment on above: Performed By: #### 2 48750 ####[facility],[address] [place] [address] 69287 Epi Cells MODERATE Normal [facility] Comment on above: Performed By: #### 2 44867 ####[facility],[address] [place], [place] [id number] Glucose Ql (U) NORM Normal NORMAL: NORMAL [facility] Comment on above: Performed By: #### 2 42913 ####[facility],[address] [place] [address] 15653 Hemoglobin Ql (U) 10 Abnormal NORMAL: NEGATIVE [facility] Comment on above: Performed By: #### 2 60902 ####[facility],[address] [place] [address] 27432 Ketone Negative Normal NORMAL: NEGATIVE [facility] Comment on above: Performed By: #### 2 75334 ####[facility],[address] [place] [address] 31800 Leukocytes 500 Abnormal NORMAL: NEGATIVE [facility] Comment on above: Performed By: #### 2 81793 ####[facility],[address] [place] [address] 55317 Mucous 1+ Normal [facility] Comment on above: Performed By: #### 2 58296 ####[facility],[address] [place] [address] Nitrite Ql (U) Negative Normal NORMAL: NEGATIVE [facility] Comment on above: Performed By: #### 2 38873 ####[facility],[address] [place] [address] pH (U) 6 [pH] Normal NORMAL: 5.0-8.0 [facility] Comment on above: Performed By: #### 2 72319 ####[facility],[address] [place] [address] Protein Ql (U) 30 Abnormal NORMAL: NEGATIVE [facility] Comment on above: Performed By: #### 2 93464 ####[facility],[address] [place] [address] Rbc 35-50 Normal 0-3/hpf [facility] Comment on above: Performed By: #### 2 20974 ####[facility],[address] [place] [address] Sp [place] 1.015 Normal NORMAL: 1.010-1.030 [facility] Comment on above: Performed By: #### 2 24010 ####[facility],[address] [place] [address] Specimen Type R Normal [facility] Comment on above: Performed By: #### 2 75813 ####[facility],[address] [place] [address] Urinalysis dipstick W Reflex Microscopic panel (U) SEE BELOW Normal [facility] Comment on above: Result Comment: MICR OSCOPIC Performed By: #### 2 73130 ####[facility],[address] [place] [address] Urobilinog NORM Normal NORMAL: NORMAL [facility] Comment on above: Performed By: #### 2 04865 ####[facility],[address] [place] [address] Wbc 26-50 Normal 0-5/hpf [facility] Comment on above: Performed By: #### 2 47877 ####[facility],[address] [place] [address] Yeast NONE Normal [facility] Comment on above: Performed By: #### 2 89226 ####[facility],[address] [place] [address] ED MED ADMINISTRATION DETAIL on 02-07-2025 ED MED ADMINISTRATION DETAIL Normal [facility] ED NURSES CLINICAL NOTEon ED NURSES CLINICAL NOTE Normal [facility] ED ORDER SHEET (CPOE ONLY)on 02-07-2025 ED ORDER SHEET (CPOE ONLY) Normal [facility] ED PHYSICIAN CLINICAL REPORT on 02-07-2025 ED PHYSICIAN CLINICAL REPORT Normal [facility] ED SUPER BILLon 02-07-2025 ED SUPER BILL Normal [facility] ED VISIT SUMMARYon ED VISIT SUMMARY Normal [facility] ED VITALS FLOW SHEETon 02-07 ED VITALS FLOW SHEET Normal [facility] ED MED ADMINISTRATION DETAIL on 01-20-2025 ED MED ADMINISTRATION DETAIL Normal [facility] ED NURSES CLINICAL NOTEon ED NURSES CLINICAL NOTE Normal [facility] ED ORDER SHEET (CPOE ONLY)on 01-20-2025 ED ORDER SHEET (CPOE ONLY) Normal [facility] ED PHYSICIAN CLINICAL REPORT on 01-20-2025 ED PHYSICIAN CLINICAL REPORT Normal [facility] ED SUPER BILLon 01-20-2025 ED SUPER BILL Normal [facility] ED VISIT SUMMARYon ED VISIT SUMMARY Normal [facility] ED VITALS FLOW SHEETon 01-20 ED VITALS FLOW SHEET Normal [facility] CBC + DIFFon 01-19-2025 Baso # 0.02 x10EE3/UL Normal 0.00 - 0.10 [facility] Comment on above: Performed By: #### 2 04263 ####[facility],[address],[place] [address] Basophils/100 WBC (Bld) 0.2 % Normal 0.0 - 2.0 [facility] Comment on above: Performed By: #### 2 63219 ####[facility],[address] [place] [address] CBC + DIFF Normal [facility] Comment on above: Result Comment: CBC- COMPLETE BLOOD COUNT Performed By: #### 2 07894 ####[facility],[address] [place] [address] EO # 0.24 x10EE3/UL Normal 0.00 - 0.50 [facility] Comment on above: Performed By: #### 2 89728 ####[facility],[address] [place] [address] Eosinophils/100 WBC (Bld) 2.1 % Normal 0.0 - 7.0 [facility] Comment on above: Performed By: #### 2 32716 ####[facility],[address] [place] [address] Erythrocyte distribution width (RBC) [Ratio] 12.9 % Normal 12.0 - 15.6 [facility] Comment on above: Performed By: #### 2 81522 ####[facility],[address] [place] [address] Hematocrit (Bld) [Volume fraction] 38.2 % Normal 34.0 - 46.0 [facility] Comment on above: Performed By: #### 2 44920 ####[facility],[address] [place] [address] Hemoglobin (Bld) [Mass/Vol] 13.5 g/dL Normal 12.0 - 16.0 [facility] Comment on above: Performed By: #### 2 03033 ####[facility],[address] [place] [address] Lymph # 3.01 x10EE3/UL High 0.80 - 2.80 [facility] Comment on above: Performed By: #### 2 02225 ####[facility],[address] [place] [address] Lymphocytes/100 WBC (Bld) 26.4 % Normal 20.0 - 45.0 [facility] Comment on above: Performed By: #### 2 83179 ####[facility],[address] [place] [address] MANUAL DIFF N/A Normal [facility] Comment on above: Performed By: #### 2 99556 ####[facility],[address] [place] [address] MCH (RBC) [Entitic mass] 32 pg Normal 27 - 33 [facility] Comment on above: Performed By: #### 2 04336 ####[facility],[address] [place] [address] MCHC 35 X10 3 Normal 32 - 36 [facility] Comment on above: Performed By: #### 2 86532 ####[facility],[address] [place] [address] MCV (RBC) [Entitic vol] 90 fL Normal 80 - 99 [facility] Comment on above: Performed By: #### 2 85932 ####[facility],[address] [place] [address] [place] # 0.64 x10EE3/UL Normal 0.20 - 1.00 [facility] Comment on above: Performed By: #### 2 60671 ####[facility],[address] [place] [address] MONOS % 5.7 % Normal 0.0 - 10.0 [facility] Comment on above: Performed By: #### 2 28035 ####[facility],[address] [place], [place] [address] Morphology Adrian (Bld) [Interp] N/A Normal [facility] Comment on above: Performed By: #### 2 34242 ####[facility],[address] [place] [address] 51963 Neut # 7.46 x10EE3/UL High 1.50 - 7.10 [facility] Comment on above: Performed By: #### 2 35481 ####[facility],[address] [place] [address] 46134 Neutrophils/100 WBC (Bld) 65.6 % Normal 46.0 - 76.0 [facility] Comment on above: Performed By: #### 2 73705 ####[facility],[address] [place] [address] 09237 PLATELET 289 x10EE3/UL Normal 150 - 450 [facility] Comment on above: Performed By: #### 2 44845 ####[facility],[address] [place] [address] 89919 Platelet mean volume (Bld) [Entitic vol] 8.7 fL Normal 6.6 - 10.5 [facility] Comment on above: Result Comment: AUTO MATED DIFFERENTIAL Performed By: #### 2 51583 ####[facility],[address] [place] [address] 87143 RBC 4.25 x 10EE6/UL Normal 4.10 - 5.30 [facility] Comment on above: Performed By: #### 2 04544 ####[facility],[address] [place] [address] 99849 WBC 11.4 x 10EE3/UL High 4.5 - 10.8 [facility] Comment on above: Performed By: #### 2 00476 ####[facility],[address] [place] [address] 72411 CMP with eGFRon 01-19-2025 AGE 44 years Normal [facility] Comment on above: Performed By: #### 2 98209 ####[facility],[address] [place] [address] 63838 Albumin [Mass/Vol] 4.0 g/dL Normal 3.4 - 5.0 [facility] Comment on above: Performed By: #### 2 38362 ####[facility],[address] [place] [address] 64712 Albumin/Globulin [Mass ratio] 1.0 {ratio} Normal 0.9 - 1.6 [facility] Comment on above: Performed By: #### 2 10197 ####[facility],[address] [place] [address] 16340 ALK PHOS 136 U/L High 46 - 116 [facility] Comment on above: Performed By: #### 2 90070 ####[facility],[address] [place] [address] 25115 ALT [Catalytic activity/Vol] 22 U/L Normal 16 - 63 [facility] Comment on above: Performed By: #### 2 93275 ####[facility],[address] [place] [address] 94665 Anion gap [Moles/Vol] 12 mmol/L Normal 10 - 20 [facility] Comment on above: Performed By: #### 2 08734 ####[facility] [facility],[address] [place] [address] 20291 AST [Catalytic activity/Vol] 11 U/L Low 13 - 39 [facility] Comment on above: Performed By: #### 2 [id number] ####[facility],[address] [place] [address] 72021 B/C RATIO 9 ratio Normal 0 - 30 [facility] Comment on above: Performed By: #### 2 52569 ####[facility],[address] [place] [address] 27249 Bilirubin [Mass/Vol] 0.5 mg/dL Normal 0.2 - 1.0 [facility] Comment on above: Performed By: #### 2 32029 ####[facility],[address] [place] [address] 05860 Calcium [Mass/Vol] 9.2 mg/dL Normal 8.5 - 10.1 [facility] Comment on above: Performed By: #### 2 91235 ####[facility],[address] [place] [address] 43117 Chloride [Moles/Vol] 107 mmol/L Normal 98 - 107 [facility] Comment on above: Performed By: #### 2 57166 ####[facility],[address] [place] [address] 94295 CMP with eGFR Normal [facility] Comment on above: Result Comment: COMP REHENSIVE METABOLIC PANEL Performed By: #### 2 35914 ####[facility],[address] [place] [address] 07749 CO2 [Moles/Vol] 25.3 mmol/L Normal 21.0 - 32.0 [facility] Comment on above: Performed By: #### 2 66689 ####[facility],[address] [place] [address] 60429 Creatinine [Mass/Vol] 1.12 mg/dL High 0.55 - 1.02 [facility] Comment on above: Performed By: #### 2 76891 ####[facility],[address] [place] [address] 42016 eGFR 53 ML/MINUTE Low 60 - 999 [facility] Comment on above: Performed By: #### 2 43601 ####[facility],[address] [place] [address] 34341 GFR/1.73 sq M.predicted among non-blacks MDRD (S/P/Bld) [Vol rate/Area] mL/min/{1.73_m2} Normal 60 - 999 [facility] Comment on above: Result Comment: ACCO RDING TO THE NATIONAL KIDNEY DISEASE EDUCATION PROGRAM(NKDE), A NORMAL eGFRIS A VALUE GREATER THAN OR EQUAL TO 60 ML/MIN/1.73 SQ METERS.CHRONIC KIDNEY DISEASE: <60mL/MIN/1.73 SQ METERSKIDNEY FAILURE: <15mL/MIN/1.73 SQ METERSTHIS TEST SHOULD ONLY BE USED FOR PATIENTS 18 YEARS OF AGE AND OLDER. Performed By: #### 2 43538 ####[facility],[address] [place] [address] 09138 Globulin (S) [Mass/Vol] 3.9 g/dL High 1.5 - 3.8 [facility] Comment on above: Performed By: #### 2 52772 ####[facility],[address] [place] [address] 45927 Glucose [Mass/Vol] 103 mg/dL Normal 74 - 106 [facility] Comment on above: Performed By: #### 2 39592 ####[facility],[address] [place] [address] 85589 Potassium [Moles/Vol] 3.7 mmol/L Normal 3.5 - 5.1 [facility] Comment on above: Performed By: #### 2 29130 ####[facility],[address] [place] [address] 18683 Protein [Mass/Vol] 7.9 g/dL Normal 6.4 - 8.2 [facility] Comment on above: Performed By: #### 2 96187 ####[facility],[address] [place] [address] 45645 Sodium [Moles/Vol] 141 mmol/L Normal 136 - 145 [facility] Comment on above: Performed By: #### 2 17590 ####[facility],[address] [place] [address] 94172 Urea nitrogen [Mass/Vol] 10 mg/dL Normal 7 - 18 [facility] Comment on above: Performed By: #### 2 92867 ####[facility],[address] [place] [address] ABDOMEN/PELVIS WOon 01-19 CT ABDOMEN/PELVIS WO Normal [facility] LIPASEon 01-19-2025 Lipase [Catalytic activity/Vol] 50.0 U/L Normal 15.0 - 78.0 [facility] Comment on above: Result Comment: *PLE ASE NOTE THAT RANGES FOR LIPASE HAVE CHANGED OF 09/11/23 DUE TO AN ASSAYUPDATE BY THE ELECTRONICS REPAIR TECHNICIAN.THE NEW ASSAY RANGE IS 6-250 U/L, WITH A REFERENCERANGE OF 16-77 U/L. Performed By: #### 2 81807 ####[facility],[address] [place] [address] URINALYSISon 01-19-2025 Amorphous NONE Normal [facility] Comment on above: Performed By: #### 2 65227 ####[facility],[address] [place] [address] Bacteria 3+ Normal [facility] Comment on above: Performed By: #### 2 74658 ####[facility],[address] [place] [address] Bilirubin Ql (U) Negative Normal NORMAL: NEGATIVE [facility] Comment on above: Performed By: #### 2 11529 ####[facility],[address] [place] [address] Casts NONE Normal [facility] Comment on above: Performed By: #### 2 10828 ####[facility],[address] [place] [address] Clarity (U) clear Normal NORMAL: CLEAR [facility] Comment on above: Performed By: #### 2 41975 ####[facility],[address] [place], [place] [id number] Color (U) p.yel Normal NORMAL: YELLOW [facility] Comment on above: Performed By: #### 2 33042 ####[facility],[address] [place] [address] 94152 Crystals LM Nom (Urine sed) NONE Normal [facility] Comment on above: Performed By: #### 2 57643 ####[facility],[address] [place], [place] [id number] Epi Cells MANY Normal [facility] Comment on above: Performed By: #### 2 99932 ####[facility],[address] [place], [place] [id number] Glucose Ql (U) NORM Normal NORMAL: NORMAL [facility] Comment on above: Performed By: #### 2 52315 ####[facility],[address] [place] [address] 48924 Hemoglobin Ql (U) 25 Abnormal NORMAL: NEGATIVE [facility] Comment on above: Performed By: #### 2 25829 ####[facility],[address] [place] [address] 04043 Ketone Negative Normal NORMAL: NEGATIVE [facility] Comment on above: Performed By: #### 2 15118 ####[facility],[address] [place] [address] Leukocytes 100 Abnormal NORMAL: NEGATIVE [facility] Comment on above: Performed By: #### 2 78209 ####[facility],[address] [place] [address] Mucous NONE Normal [facility] Comment on above: Performed By: #### 2 46872 ####[facility],[address] [place], [place] [id number] Nitrite Ql (U) Negative Normal NORMAL: NEGATIVE [facility] Comment on above: Performed By: #### 2 31001 ####[facility],[address] [place], [place] [id number] pH (U) 6 [pH] Normal NORMAL: 5.0-8.0 [facility] Comment on above: Performed By: #### 2 55789 ####[facility],[address] [place] [address] 79458 Protein Ql (U) Negative Normal NORMAL: NEGATIVE [facility] Comment on above: Performed By: #### 2 98196 ####[facility],[address] [place] [address] 52968 Rbc NONE Normal 0-3/hpf [facility] Comment on above: Performed By: #### 2 56560 ####[facility],[address] [place], [place] [address] Sp [place] 1.010 Normal NORMAL: 1.010-1.030 [facility] Comment on above: Performed By: #### 2 82961 ####[facility],[address] [place] [address] Specimen Type R Normal [facility] Comment on above: Performed By: #### 2 49884 ####[facility],[address] [place] [address] Urinalysis dipstick W Reflex Microscopic panel (U) SEE BELOW Normal [facility] Comment on above: Result Comment: MICR OSCOPIC Performed By: #### 2 90753 ####[facility],[address] [place] [address] Urobilinog NORM Normal NORMAL: NORMAL [facility] Comment on above: Performed By: #### 2 12599 ####[facility],[address] [place] [address] Wbc 1-5 Normal 0-5/hpf [facility] Comment on above: Performed By: #### 2 51074 ####[facility],[address] [place] [address] Yeast NONE Normal [facility] Comment on above: Performed By: #### 2 89591 ####[facility],[address] [place] [address] Office Visiton 12-29-2024 Follow-up visit [id number] Tanner Vargas 1980 F Date Provider Department Center 12/29/2024 [id number] WHEELER [facility]AC[facility] Family History Problem Relation Age of Onset Other Mother Comments: blood clots Hyperlipidemia Mother High Blood Pressure Mother Family Status - Relation Status Age at Mother Alive Paternal Grandfather Paternal Grandmother Maternal Grandmother Alive Father Alive Maternal Grandfather Alive Level of Service:12591 OR OFFICE/OUTPATIENT ESTABLISHED MOD MDM 30 MIN Reason for Visit and Comments: Follow-up [286981] - ED follow up ED visit 12/27 for chronic pelvic pain Hysterectomy BSO in 2006 for suspected endometriosis Restarted oral estrogen for HRT Percocet not helping with pain Normal [facility] Progress Noteon 12-29-2024 Progress Note Chief Complaint Patient presents with Follow-up ED follow up ED visit 12/27 for chronic pelvic pain Hysterectomy BSO in 2006 for suspected endometriosis Restarted oral estrogen for HRT Percocet not helping with pain Here to discuss continued pelvic pain. Has long hx of chronic pelvic pain. S/p hyst, BSO in 2006 for endometriosis. Underwent ex lap x3 with Dr. Palacios. Op notes reviewed, (2017)There was extensive scar tissue with some thickening and what appeared to be ovarian tissue on the left pelvic sidewall that was resected in its entirety. At the completion of the operation, the entire left pelvic sidewall had been removed along with the peritoneum, no other evidence of ovarian tissue was found. No other evidence of pelvic masses was noted. The patient had extensive fibrosis on the left pelvic sidewall, the left ureteral stent was palpated but the left ureter was very fibrotic, the surgery required a complete left ureterolysis in order to remove the scar tissue up above the ureter as well as below the ureter. Was previously referred to Pelvic health specialist but was not able to go. Reports pain started to worsen again about 1 month ago. Has been seen in the ER multiple times over the past month for this pain. Was sent with rx for 5 mg Percocet which she takes q4 hrs and barely takes the edge off. She reports this pain is in her lower abdomen and is constant and stabbing. Sometimes feels like period cramps. Not associated with movement. She is current on HRT, had been tolerating well but has had worsening hot flashes and night sweats over the past 2 wks. ROS: Constitutional - denies fevers or chills Resp - denies CP or SOB CV - denies CP GI - denies nausea, vomiting - denies frequency and dysuria Past Medical History: Diagnosis Date Cancer (CMS/HCC) (HCC) Chicken pox High cholesterol History of blood transfusion 2006 Kidney stones Right ureteral calculus 09/05/2019 Past Surgical History: Procedure Laterality Date CHOLECYSTECTOMY CYSTOSCOPY 09/05/2019 cystoscopy, bilateral retrograde pyelograms, right ureteroscopy EXPLORATORY LAPAROTOMY Laparotomy RSO EXPLORATORY LAPAROTOMY 12/02/2016 exp lap, extensive lysis of adhesions, left ureterlysis and excision of left pelvic sidewall HYSTERECTOMY 2006 BSO for endometrisos LAPAROSCOPY DIAGNOSTIC / BIOPSY / ASPIRATION / LYSIS LIVER SURGERY 2019 removed cyst URETEROSCOPY Right 09/05/2019 C&P ( normal bilat). Right ureteroscopy-negative ( passessed stones). [facility] Allergies Allergen Reactions Fentanyl Shortness of breath Iodine Shortness of breath Metronidazole Hives and Shortness of breath Salicylates Itching, Unknown and Other ulcers Cephalexin Itching Gadolinium Derivatives Cough Stopped breathing/ states if benadryl with contrast dye then she is okay Iodinated Contrast Media Nsaids Hives Ondansetron Penicillins Hives Promethazine Hives Toradol [Ketorolac Tromethamine] Chlorhexidine Rash Skin rash Ciprofloxacin Rash Unclear if the pruritic areas of rash were related to medication or not, no prior use Dicyclomine Hives BP 116/74 Ht 1.626 m (5' 4) Wt 88.5 kg (195 lb) BMI 33.47 kg/m? PE: Well developed, well nourished Normocephalic, atraumatic CV - normal rate Resp - normal effort Abd - soft, ND MS - no edema Neuro - Pt A&Ox3, NAD Skin - warm and dry Psych - normal affect and behavior Sally was seen today for follow-up. Diagnoses and all orders for this visit: Pelvic pain in female (Primary) - diazePAM (Valium) 5 MG tablet; Place one table vaginally nightly as needed for pelvic muscle spasm Other orders - gabapentin (Neurontin) 300 MG capsule; Take 1 capsule (300 mg) by mouth 3 times daily. Will try vaginal valium and gabapentin Follow up 1 month Working on financial assistance Follow up in about 4 weeks (around 01/26/2025). [facility] 36on 12-27-2024 36 Noted. Patient in ED. [facility] 36 Name of Caller: Giovanna Vargas Contact Reason for Appointment: Patient returning call from office. Advised patient the Dr would like her to schedule an appointment, see triage 12.27.24. Patient states I'm already in the emergency department. Put patient on hold to schedule and patient hung up Office Name: [facility] Medication Refills need, if any: n/a Medication Name: n/a [facility] 36 Called and Lvm to schedule another appointment with Dr. Story to discuss other options for pelvic pain for treatment Normal [facility] 36 Reviewed Normal [facility] 36 Name of caller: Giovanna molina Contact phone number: [phone] Relationship to Patient: patient Provider: Kimberly Practice: [facility] Chief Complaint/Reason for Call: Patient states she was told to go to the ER and she wants Dr. Story to know that she is there for abdominal pain. Best time of day caller can be reached: PM Patient advised that office/PCP has 24-48 business hours to return their call: No Normal [facility] 36 Message sent to provider. [facility] 36 Called earlier today and spoke to talent analyst, states nurse was supposed to leave message with Dr. Story. Upset, states she has been having severe pelvic pain and has been to ED multiple times, was referred to pelvic health specialist but states she cannot be seen because she does not currently have insurance, any income and cannot afford the copay and office will not see her without the copay of $200. States something needs to be done about her pain. Advised Dr. Story sent referral for Pelvic health specialist to help manage her pain, but if she is unable to afford copay to be seen in office and is currently experiencing severe pain, needs to return to ED. They can manage her pain there. Can also ask about [facility] financial assistance during registration process, to see if she would be eligible for that to assist with financial cost of being seen. Patient also advised she can sign up for [facility] Financial assistance through her [employer]. RN sent new code via text message for patient to sign up. Patient states she has [employer] through [facility]. Advised she would need to create a new account for [facility] providers, but would be able to access financial assistance application through there as well. Patient states I do not use [employer]. Again advised, she wouldn't have to use it frequently, but could get financial assistance process started. Patient disconnected call. RN will send TE to Dr. Story's office to update. Normal [facility] 36 The patient has been in the ED multiple times for this pain and has had multiple surgeries. Since the initial assessment,she was seen in the office and referred to pelvic health. She is refusing pelvic health or another specialist because she states this will involve a co-pay up front that she cannot afford. She does not have a job or insurance; she cannot afford to keep paying for visits and treatments when they are not working. I am not sure exactly what she wants done at this point but she told me that she wants the pain gone and she does not want referrals to anyone else. She wants this handled by Dr. Story only. [facility] ED Provider Noteon ED Provider Note EMERGENCY DEPARTMENT ENCOUNTER Pt Name: Sally Vargas Birthdate 1980 Date of evaluation: 12/27/2024 ED Provider: Damion Silva DO CHIEF COMPLAINT Chief Complaint Patient presents with Abdominal Pain Pt comes in due to having increased abd pain pt states she has been seen here a few times for this issue and states its not getting better. Pt is alert and oriented states the pain is lower almost into the pelvis. HISTORY OF PRESENT ILLNESS (Location/Symptom, Timing/Onset, Context/Setting, Quality, Duration, Modifying Factors, Severity) Note limiting factors. I wore appropriate PPE for the entirety of this encounter. HPI Sally Vargas is a 44 y.o. who presents to the emergency department with chief complaint of pelvic pain. Patient has a history of endometriosis and has had a prior total hysterectomy with oophorectomy. States for the past 1 month she has had chronic constant bilateral pelvic pain. Has been to the ER multiple times for similar symptoms and was supposed to follow-up with her PLANT OPERATOR CONTROL ROOM OPERATOR, Dr. Story. Was attempting to make an appointment today for follow up however came to the ER due to her chronic pain. He had also referred her to a pelvic pain specialist however they required payment upfront and she does not have insurance so she was not able to see them. States she is taking Tylenol for her pain due to not being able to take anti-inflammatories. States it is not helping and she is also experiencing nausea but no vomiting. States this is the same pain she has been experiencing for the past 1 month and she is here due to poor pain control. Nursing Notes were reviewed. Limitations to history: None Outside historians: None REVIEW OF SYSTEMS Review of Systems Pertinent positives and negatives as per HPI. PAST MEDICAL HISTORY Past Medical History: Diagnosis Date Cancer (CMS/HCC) (HCC) Chicken pox High cholesterol History of blood transfusion 2006 Kidney stones Right ureteral calculus 09/05/2019 SURGICAL HISTORY Past Surgical History: Procedure Laterality Date CHOLECYSTECTOMY CYSTOSCOPY 09/05/2019 cystoscopy, bilateral retrograde pyelograms, right ureteroscopy EXPLORATORY LAPAROTOMY Laparotomy RSO EXPLORATORY LAPAROTOMY 12/02/2016 exp lap, extensive lysis of adhesions, left ureterlysis and excision of left pelvic sidewall HYSTERECTOMY 2006 BSO for endometrisos LAPAROSCOPY DIAGNOSTIC / BIOPSY / ASPIRATION / LYSIS LIVER SURGERY 2019 removed cyst URETEROSCOPY Right 09/05/2019 C&P ( normal bilat). Right ureteroscopy-negative ( passessed stones). [facility] CURRENT MEDICATIONS Current Discharge Medication List CONTINUE these medications which have NOT CHANGED Details colestipol (Colestid) 1 g tablet Take 1 g by mouth twice a day. EPINEPHrine (Epipen) 0.3 MG/0.3ML injection syringe As directed !! estradiol (Estrace) 0.5 MG tablet TAKE 1 TABLET BY MOUTH EVERY DAY Qty: 30 tablet, Refills: 0 !! estradiol (Estrace) 2 MG tablet Take 1 tablet (2 mg) by mouth daily. Qty: 30 tablet, Refills: 11 gabapentin (Neurontin) 400 MG capsule Take 400 mg by mouth every 12 hours. HYDROcodone-acetaminophe n (Acushnet) 5-325 MG tablet Dose = 1 tab(s), Oral, q6h, PRN for pain, tab(s), 0 Refill(s), 95.1 metoclopramide (Reglan) 10 MG tablet Take 1 tablet (10 mg) by mouth every 6 hours for 7 days. Qty: 28 tablet, Refills: 0 ondansetron ODT (Zofran-ODT) 4 MG disintegrating tablet 4 mg. pantoprazole (ProtoNix) 40 MG EC tablet Take 40 mg by mouth. PARoxetine (Paxil) 10 MG tablet TAKE 1 TABLET (10 MG) BY MOUTH DAILY. Qty: 30 tablet, Refills: 0 promethazine (Phenergan) 25 MG tablet 25 mg. SUMAtriptan Succinate 6 MG/0.5ML solution cartridge Inject 6 mg under the skin. topiramate (Topamax) 25 MG tablet Take 25 mg by mouth twice a day. !! - Potential duplicate medications found. Please discuss with provider. ALLERGIES Fentanyl, Iodine, Metronidazole, Salicylates, Cephalexin, Gadolinium derivatives, Iodinated contrast media, Nsaids, Ondansetron, Penicillins, Promethazine, Toradol [ketorolac tromethamine], Chlorhexidine, Ciprofloxacin, and Dicyclomine FAMILY HISTORY Family History Problem Relation Name Age of Onset Other (01654) Mother blood clots Hyperlipidemia Mother High Blood Pressure Mother SOCIAL HISTORY Social History Socioeconomic History Marital status: Tobacco Use Smoking status: Every Day Current packs/day: 0.50 Types: Cigarettes Smokeless tobacco: Never Vaping Use Vaping status: Never Used Substance and Sexual Activity Alcohol use: Yes Alcohol/week: 0.0 standard drinks of alcohol Drug use: Yes Types: Marijuana Comment: occasional gummy Social Drivers of Health Financial Resource Strain: Patient Declined (12/14/2023) Received from [facility] Overall Financial Resource Strain (CARDIA) Difficulty of Paying Living Expenses: Patient declined Food Insecurity: Pa (more content not included)... Normal [facility] Office Visiton 12-21-2024 Follow-up visit [id number] Tanner Vargas 1980 F Date Provider Department Center 12/21/2024 [id number] [facility] Family History Problem Relation Age of Onset Other Mother Comments: blood clots Hyperlipidemia Mother High Blood Pressure Mother Family Status - Relation Status Age at Mother Alive Paternal Grandfather Paternal Grandmother Maternal Grandmother Alive Father Alive Maternal Grandfather Alive Level of Service:33238 OR OFFICE/OUTPATIENT NEW LOW MDM 30 MINUTES Reason for Visit and Comments: New Patient [542] - Re-establishing care, ED follow up 3 recent ED visits for chronic lower abdominal pain and spotting CT and US completed Hysterectomy BSO in 2006 for suspected endometriosis No longer on oral estrogen- having hot flashes Normal [facility] Progress Noteon 12-21-2024 Progress Note Sally Vargas 12/21/2025 44 y.o. Primary Care Physician: SILVERIO HALEY Chief Complaint Patient presents with New Patient Re-establishing care, ED follow up 3 recent ED visits for chronic lower abdominal pain and spotting CT and US completed Hysterectomy BSO in 2006 for suspected endometriosis No longer on oral estrogen- having hot flashes HPI : Sally Vargas is a 44 y.o. female here for annual exam Gynecologic History: No LMP recorded. Patient has had a hysterectomy. Severe pain coming back Going on for a few months and getting worse last 4 weeks Has been to ER multiple times Pain b/l LQ OB History Para Term AB Living 4 2 2 0 2 0 SAB IAB Ectopic Multiple Live Births 2 0 0 0 0 # Outcome Date GA Lbr Tahir/2nd Weight Sex Type Anes PTL Lv 4 Term 3 Term 2 SAB 1 SAB Past Medical History: Diagnosis Date Cancer (CMS/HCC) (HCC) Chicken pox High cholesterol History of blood transfusion 2006 Kidney stones Right ureteral calculus 09/05/2019 Past Surgical History: Procedure Laterality Date CHOLECYSTECTOMY CYSTOSCOPY 09/05/2019 cystoscopy, bilateral retrograde pyelograms, right ureteroscopy EXPLORATORY LAPAROTOMY Laparotomy RSO EXPLORATORY LAPAROTOMY 12/02/2016 exp lap, extensive lysis of adhesions, left ureterlysis and excision of left pelvic sidewall HYSTERECTOMY 2006 BSO for endometrisos LAPAROSCOPY DIAGNOSTIC / BIOPSY / ASPIRATION / LYSIS LIVER SURGERY 2019 removed cyst URETEROSCOPY Right 09/05/2019 C&P ( normal bilat). Right ureteroscopy-negative ( passessed stones). [place] Family History Problem Relation Name Age of Onset Other ([address]193) Mother blood clots Hyperlipidemia Mother High Blood Pressure Mother Social History Socioeconomic History Marital status: Spouse name: Not on file Number of children: Not on file Years of education: Not on file Highest education level: Not on file Occupational History Not on file Tobacco Use Smoking status: Every Day Current packs/day: 0.50 Types: Cigarettes Smokeless tobacco: Never Vaping Use Vaping status: Never Used Substance and Sexual Activity Alcohol use: Yes Alcohol/week: 0.0 standard drinks of alcohol Drug use: Yes Types: Marijuana Comment: occasional gummy Sexual activity: Not on file Other Topics Concern Not on file Social History Narrative Not on file Social Drivers of Health Financial Resource Strain: Patient Declined (12/14/2023) Received from [facility] Overall Financial Resource Strain (CARDIA) Difficulty of Paying Living Expenses: Patient declined Food Insecurity: Patient Declined (12/14/2023) Received from [facility] Hunger Vital Sign Worried About Running Out of Food in the Last Year: Patient declined Ran Out of Food in the Last Year: Patient declined Transportation Needs: Patient Declined (12/14/2023) Received from [facility] PRAPARE - Transportation Lack of Transportation (Medical): Patient declined Lack of Transportation (Non-Medical): Patient declined Physical Activity: Patient Declined (12/14/2023) Received from [facility] Exercise Vital Sign Days of Exercise per Week: Patient declined Minutes of Exercise per Session: Patient declined Stress: No Stress Concern Present (11/15/2020) Received from [facility], [facility] [place] of Occupational Health - Occupational Stress Questionnaire Feeling of Stress : Only a little Social Connections: Unknown (12/14/2023) Received from [facility] Social Connection and Isolation Panel [NHANES] Frequency of Communication with Friends and Family: Not on file Frequency of Social Gatherings with Friends and Family: Not on file Attends [employer] Services: Not on file Active Member of Clubs or Organizations: Patient declined Attends Club or Organization Meetings: Not on file Marital Status: Patient declined Intimate Partner Violence: Not on file Housing Stability: Patient Declined (12/14/2023) Received from [facility] Housing Stability Vital Sign Unable to Pay for Housing in the Last Year: Patient declined Number of Places Lived in the Last Year: Not on file Unstable Housing in the Last Year: Patient declined MEDICATIONS: Current Outpatient Medications Medication Sig Dispense Refill colestipol (Colestid) 1 g tablet Take 1 g by mouth twice a day. EPINEPHrine (Epipen) 0.3 MG/0.3ML injection syringe As directed gabapentin (Neurontin) 400 MG capsule Take 400 mg by mouth every 12 hours. HYDROcodone-acetaminophe n (Acushnet) 5-325 MG tablet Dose = 1 tab(s), Oral, q6h, PRN for pain, tab(s), 0 Refill(s), 95.1 metoclopramide (Reglan) 10 MG tablet Take 1 tablet (10 mg) by mouth every 6 hours for 7 days. 28 tablet 0 ondansetron ODT (Zofran-ODT) 4 MG disintegrating tablet 4 mg. pantoprazole (ProtoNix) 40 MG EC tablet Take 40 mg (more content not included)... [facility] 12-20-2024 36 S: Patient spoke wit h [facility] nurse seeking a sooner appointment with Dr. Story B: Onset of symptoms/concern 4 weeks A: Patient has abdominal and pelvic symptoms, went to ED for evaluation twice. Patient has an upcoming appointment on 12/21/2024. Patient has 10/10 pain, unable to sleep. Patient states she continues to take the pain med without relief. R: No sooner appointments with Dr. Story were available today. Patient verbalized understanding. Patient instructed to go to the ED if her symptoms get worse. Reason for Disposition MILD TO MODERATE constant pain lasting > 2 hours Protocols used: Abdominal Pain - ADULT-[place] [id number] 36 Patient wanting [facility] location. Appt scheduled [facility] 36 S: Caller spoke with [facility] nurse regarding lower abdominal pain and nausea. B: Onset of symptoms/concern: Not an established patient A: Caller states she has gone to the ED three (3) times for this issue, has an appointment on Thursday but is looking for something sooner, was told by her PCP that she needs to see her PLANT OPERATOR CONTROL ROOM OPERATOR for her chronic abdominal pain. Caller denies pelvic pain. R: Caller advised I am unable to get her seen sooner and needs to keep her appointment as scheduled on 12/21/24 to re-establish care. Reason for Disposition Abdominal pain is a chronic symptom (recurrent or ongoing AND lasting > 4 weeks) Protocols used: Abdominal Pain - ADULT-[place] [id number] 36 S Patient calling wi th pelvic pain B ongoing see previous A Patient calling, previous triage encounters. Has been to ED x2 this past week due to severe pelvic pain. Has UA US and labs. Was given pain meds and zofran. Patient states she is still in severe pelvic pain and sick to stomach even with rx. Patient also having light bloody discharge. Does no have periods hx of hysterectomy. R Advised I would be unable to get her in sooner. Advised ED today since she is in severe pain while on prescribed pain meds. Will be going to [facility]. Patient would benefit from sooner appt if possible. Thank you Reason for Disposition [1] SEVERE pain (e.g., excruciating) AND [2] present > 1 hour Protocols used: Abdominal Pain - ADULT-[place] Normal [facility] Bacterial vaginosis and vagi nitis rRNA panel Probe (Vag fld)on 12-17-2024 Bacterial vaginosis Ql (Vag fld) [Interp] Detected Abnormal Not Detected [facility] C. glabrata DNA ABRAM+probe Ql (Vag fld) Not detected Not Detected [facility] Pillo sp DNA ABRAM+probe Ql (Vag fld) Not detected Not Detected [facility] Interpretation and review of laboratory results Abnormal [facility] T. vaginalis DNA ABRAM+probe Ql (Vag fld) Not detected Not Detected [facility] Methodology: real-ti me PCR A negative result does not preclude a possible infection. This assay can detect the Pillo species C. albicans, C. tropicalis, C. parapsilosis, and C. dubliniensis but does not differentiate among them. The assay also detects C. glabrata and C. krusei, but does not differentiate between them. Results should be interpreted in conjunction with other clinical data. This test has not been validated for use with specimens collected by patients at home. This test is intended for medical purposes only and is not valid for the evaluation of suspected sexual abuse or for other forensic purposes. [facility] CBC W Auto Differential pane l (Bld)on 12-17-2024 Basophils (Bld) [#/Vol] 0 10*3/uL 0.0 - 0.2 10*3/uL [facility] Basophils/100 WBC (Bld) 0.7 % 0.0 - 2.0 % [facility] Eosinophils (Bld) [#/Vol] 0.2 10*3/uL 0.0 - 0.5 10*3/uL [facility] Eosinophils/100 WBC (Bld) 2.6 % 0.0 - 6.0 % [facility] Erythrocyte distribution width (RBC) [Ratio] 13.2 % 11.5 - 15.0 % [facility] Hematocrit (Bld) [Volume fraction] 39.7 % 35.0 - 47.0 % [facility] Hemoglobin (Bld) [Mass/Vol] 13.2 g/dL 11.7 - 16.0 g/dL [facility] Immature granulocytes (Bld) [#/Vol] 0.1 10*3/uL High NINF - 0.1 10*3/uL [facility] Immature granulocytes/100 WBC (Bld) 1 % 0.0 - 2.0 % [facility] Interpretation and review of laboratory results Abnormal [facility] Lymphocytes (Bld) [#/Vol] 2.2 10*3/uL 1.0 - 4.3 10*3/uL [facility] Lymphocytes/100 WBC (Bld) 37.7 % 15.0 - 45.0 % [facility] MCH (RBC) [Entitic mass] 30.3 pg 26.0 - 34.0 pg [facility] MCHC (RBC) [Mass/Vol] 33.2 % 30.5 - 36.0 % [facility] MCV (RBC) [Entitic vol] 91.1 fL 77.0 - 99.0 fL [facility] Monocytes (Bld) [#/Vol] 0.4 10*3/uL 0.0 - 0.9 10*3/uL [facility] Monocytes/100 WBC (Bld) 6.4 % 5.0 - 13.0 % [facility] Neutrophils (Bld) [#/Vol] 3 10*3/uL 1.8 - 7.5 10*3/uL [facility] Neutrophils/100 WBC (Bld) 51.6 % 38.0 - 82.0 % [facility] Nucleated RBC/100 WBC (Bld) [Ratio] 0 % [facility] Platelet mean volume (Bld) [Entitic vol] 10.4 fL 9.0 - 12.7 fL [facility] Comment on above: MPV is a calculated measurement using platelet volume ratio Platelets (Bld) [#/Vol] 248 10*3/uL 140 - 440 10*3/uL [facility] RBC (Bld) [#/Vol] 4.36 10*6/uL 3.80 - 5.2 0 10*6/uL [facility] WBC (Bld) [#/Vol] 5.8 10*3/uL 3.6 - 10.7 10*3/uL [facility] CBC WITH AUTO DIFFERENTIALon 12-17-2024 Basophils (Bld) [#/Vol] 0.0 10*3/uL Normal 0.0-0.2 [facility] Comment on above: Performed By: #### L [id number] ####Business Account Manager: SAGE PEPE ([phone])KEN LEY R[facility]TMAN (SWRLAB)[address] [place] [address] [place] Basophils/100 WBC (Bld) 0.7 % Normal 0.0-2.0 [facility] Comment on above: Performed By: #### L [id number] ####Business Account Manager: SAGE PEPE ([phone])KEN [facility] (SWRLAB)[address] [place] [address] Eosinophils (Bld) [#/Vol] 0.2 10*3/uL Normal 0.0-0.5 [facility] Comment on above: Performed By: #### L [id number] ####Business Account Manager: SAGE PEPE ([phone])[facility] (SWRLAB)[address] [place] [address] [place] Eosinophils/100 WBC (Bld) 2.6 % Normal 0.0-6.0 [facility] Comment on above: Performed By: #### L [id number] ####Business Account Manager: SAGE PEPE ([phone])KEN LYE R[place]TMAN (SWRLAB)[address] [place] [address] Erythrocyte distribution width (RBC) [Ratio] 13.2 % Normal 11.5-15.0 [facility] Comment on above: Performed By: #### L [id number] ####Business Account Manager: SAGE PEPE ([phone])[facility] (SWRLAB)[address] [place] [address] Hematocrit (Bld) [Volume fraction] 39.7 % Normal 35.0-47.0 [facility] Comment on above: Performed By: #### L [id number] ####Business Account Manager: SAGE PEPE ([phone])KEN [facility] (SWRLAB)[address] [place] [address] Hemoglobin (Bld) [Mass/Vol] 13.2 g/dL Normal 11.7-16.0 [facility] Comment on above: Performed By: #### L [id number] ####Business Account Manager: SAGE PEPE ([phone])[facility] LE[facility] (SWRLAB)[address] [place] [address] IMMATURE GRANS % 1.0 % Normal 0.0-2.0 [facility] Comment on above: Performed By: #### L [id number] ####Business Account Manager: SAGE PEPE ([phone])[facility] (SWRL[facility])[address] [place] [address] IMMATURE GRANS ABSOLUTE 0.1 10*3/uL High <0.1 [facility] Comment on above: Performed By: #### L [id number] ####Business Account Manager: SAGE PEPE ([phone])[facility] LE[facility] (SWRLAB)[address] [place] [address] [place] Lymphocytes (Bld) [#/Vol] 2.2 10*3/uL Normal 1.0-4.3 [facility] Comment on above: Performed By: #### L [id number] ####Business Account Manager: SAGE PEPE ([phone])[facility] LE[facility] (SWRLAB)[address] [place] [address] Lymphocytes/100 WBC (Bld) 37.7 % Normal 15.0-45.0 [facility] Comment on above: Performed By: #### L [id number] ####Business Account Manager: SAGE PEPE ([phone])[facility] LE[facility] (SWRLAB)[address] [place] [address] MCH (RBC) [Entitic mass] 30.3 pg Normal 26.0-34.0 [facility] Comment on above: Performed By: #### L [id number] ####Business Account Manager: SAGE PEPE ([id number])[facility] LE[facility] (SWRLAB)[address] [place] [address] MCHC 33.2 % Normal 30.5-36.0 [facility] Comment on above: Performed By: #### L [id number] ####Business Account Manager: SAGE PEPE ([phone])KEN LEY [facility] (SWRLAB)[address] [place] [address] [place] MCV (RBC) [Entitic vol] 91.1 fL Normal 77.0-99.0 [facility] Comment on above: Performed By: #### L [id number] ####Business Account Manager: SAGE PEPE ([id number])KEN RODRIGUEZWORTH RITTMAN (SWRLAB)[address] [place] [address] [place] Monocytes (Bld) [#/Vol] 0.4 10*3/uL Normal 0.0-0.9 [facility] Comment on above: Performed By: #### L [id number] ####Business Account Manager: SAGE PEPE ([phone])KEN RODRIGUEZWORTH RITTMAN (SWRLAB)[address] [place] [address] [place] Monocytes/100 WBC (Bld) 6.4 % Normal 5.0-13.0 [facility] Comment on above: Performed By: #### L [id number] ####Business Account Manager: SAGE PEPE ([phone])KEN RODRIGUEZWORTH RITTMAN (SWRLAB)[address] [place] [address] [place] NEUTROPHILS ABSOLUTE 3.0 10*3/uL Normal 1.8-7.5 [facility] Comment on above: Performed By: #### L [id number] ####Business Account Manager: SAGE PEPE ([id number])KEN RODRIGUEZWORTH RITTMAN (SWRLAB)[address] [place] [address] [place] Neutrophils/100 WBC (Bld) 51.6 % Normal 38.0-82.0 [facility] Comment on above: Performed By: #### L [id number] ####Business Account Manager: SAGE PEPE ([id number])KEN RODRIGUEZWORTH RITTMAN (SWRLAB)[address] [place] [address] [place] NRBC 0.0 /100 WBCs Normal 0.0-2.0 [facility] Comment on above: Performed By: #### L [id number] ####Business Account Manager: SAGE EPPE ([id number])[facility]ITAL[facility]anna OLIVARESTMAN (SWRLAB)[address] [place] [address] Platelet mean volume (Bld) [Entitic vol] 10.4 fL Normal 9.0-12.7 [facility] Comment on above: Result Comment: MPV is a calculated measurement using platelet volume ratio Performed By: #### L [id number] ####Business Account Manager: SAGE PEPE ([phone])[facility]ITAL[facility]anna OLIVARESTMAN (SWRLAB)[address] [place] [address] Platelets (Bld) [#/Vol] 248 10*3/uL Normal 140-440 [facility] Comment on above: Performed By: #### L [id number] ####Business Account Manager: SAGE PEPE ([phone])[facility] OLIVARESTMAN (SWRLAB)[address] [place] [address] RBC (Bld) [#/Vol] 4.36 10*6/uL Normal 3.80-5.20 [facility] Comment on above: Performed By: #### L [id number] ####Business Account Manager: SAGE PEPE ([phone])[facility]ITAL[facility] LEY [facility] (SWRLAB)[address] [place] [address] WBC (Bld) [#/Vol] 5.8 10*3/uL Normal 3.6-10.7 [facility] Comment on above: Performed By: #### L [id number] ####Business Account Manager: SAGE PEPE ([id number])[facility]ITAL[facility] LEY [facility] (SWRLAB)[address] [place] [address] CHLAMYDIA/GONORRHEAon 2024 CHLAMYDIA/GONORRHEA NEISSERIA GONORRHOEA E DNA PROBE Reference Not Detected Not Detected CHLAMYDIA TRACHOMATIS DNA PROBE Reference Not Detected Not Detected ORDER COMMENTS: Methodology: real-time PCR This test is intended for medical purposes only and is not intended for the evaluation of suspected sexual abuse or for other forensic purposes. In certain contexts, culture may be required to meet applicable laws and regulations for diagnosis of C. trachomatis and N. gonorrhoeae infections. Per 2014 CDC recommmendations, this test does not include confirmation of positive results by an alternative nucleic acid target. A negative result does not exclude the possibility of infection. A result of invalid indicates that a new specimen should be collected if clinically indicated. Normal [facility] Comment on above: Performed By: #### L [id number] ####Business Account Manager: SAGE PEPE ([id number])[facility] ([facility])[address] [place] [address] COMPLETE URINALYSISon 2024 BACTERIA (#/HPF) IN URINE Moderate Abnormal Negative [facility] Comment on above: Performed By: #### L [id number] #### Business Account Manager: SAGE PEPE ([id number]) [facility] (SWRLAB) [address] [place] [address] BILIRUBIN, TOTAL PRESENCE IN URINE Negative Normal Negative [facility] Comment on above: Performed By: #### L [id number] #### Business Account Manager: SAGE PEPE ([id number]) [facility] RITTMAN (SWRLAB) [address] [place] [address] Clarity (U) Turbid Abnormal Clear [facility] Comment on above: Performed By: #### L [id number] #### Business Account Manager: SAGE PEPE ([id number]) [facility] (SWRLAB) [address] [place] [address] Color (U) Light Yellow Normal Lt. Yellow [facility] Comment on above: Performed By: #### L [id number] #### Business Account Manager: SAGE PEPE ([phone]) [facility] (SWRLAB) [address] [place] [address] [place] GLUCOSE (MG/DL) IN URINE Normal Normal Normal (<70) [facility] Comment on above: Performed By: #### L [id number] #### Business Account Manager: SAGE PEPE ([phone]) [facility] LE[facility] (SWRLAB) [address] [place] [address] [place] HEMOGLOBIN PRESENCE IN URINE Negative Normal Negative [facility] Comment on above: Performed By: #### L [id number] #### Business Account Manager: SAGE PEPE ([id number]) [facility] (SWRLAB) [address] [place] [address] [place] Ketones Ql (U) Negative Normal Negative [facility] Comment on above: Performed By: #### L [id number] #### Business Account Manager: SAGE PEPE ([phone]) [facility] RODRIGUEZAV RITTMAN (SWRLAB) [address] [place] [address] LEUKOCYTE ESTERASE PRESENCE IN URINE BY TEST STRIP Negative Normal Negative [facility] Comment on above: Performed By: #### L [id number] #### Business Account Manager: SAGE PEPE ([id number]) [facility] (SWRLAB) [address] [place] [address] NITRITE PRESENCE IN URINE Negative Normal Negative [facility] Comment on above: Performed By: #### L [id number] #### Business Account Manager: SAGE PEPE ([id number]) [facility] AV [facility] (SWRLAB) [address] [place] [address] [place] pH (U) 5.5 [pH] Normal 5.0-8.0 [facility] Comment on above: Performed By: #### L [id number] #### Business Account Manager: SAGE PEPE ([phone]) [facility] RODRIGUEZAV RITTMAN (SWRLAB) [address] [place] [address] [place] Protein (U) [Mass/Vol] Negative Normal Negative [facility] Comment on above: Performed By: #### L [id number] #### Business Account Manager: SAGE PEPE ([phone]) [facility] AV [facility] (SWRLAB) [address] [place] [address] [place] RBC (#/HPF) IN URINE SEDIMENT Negative Normal 0-2 [facility] Comment on above: Performed By: #### L [id number] #### Business Account Manager: SAGE PEPE ([id number]) [facility] (SWRLAB) [address] [place] [address] Specific gravity (U) [Rel density] 1.010 Normal 1.005-1.030 [facility] Comment on above: Performed By: #### L [id number] #### Business Account Manager: SAGE PEPE ([id number]) [facility] (SWRLAB) [address] [place] [address] Specimen volume (U) 12 mL Normal [facility] Comment on above: Performed By: #### L [id number] #### Business Account Manager: SAGE PEPE ([id number]) [facility] (SWRLAB) [address] [place] [address] SQUAMOUS EPITHELIAL CELLS (#/HPF) IN URINE SEDIMENT 6-10 Abnormal 3-5 [facility] Comment on above: Performed By: #### L [id number] #### Business Account Manager: SAGE PEPE ([id number]) [facility] (SWRLAB) [address] [place] [address] UROBILINOGEN (MG/DL) IN URINE Normal Normal Normal (0-1) [facility] Comment on above: Performed By: #### L [id number] #### Business Account Manager: SAGE PEPE ([id number]) [facility] (SWRLAB) [address] [place] [address] [place] WBC (LEUKOCYTE) (#/HPF) IN URINE SEDIMENT 0-2 Normal 0-5 [facility] Comment on above: Performed By: #### L [id number] #### Business Account Manager: SAGE PEPE ([phone]) [facility] (SWRLAB) [address] [place] [address] COMPREHENSIVE METABOLIC PANE [place] 12-17-2024 Albumin [Mass/Vol] 4.1 g/dL Normal 3.5-5.0 [facility] Comment on above: Performed By: #### L AB99, LAB17 ####Business Account Manager: SAGE PEPE ([phone])[facility] AV [facility] (SWRLAB)[address] ALP [Catalytic activity/Vol] 120 U/L Normal 40-150 [facility] Comment on above: Performed By: #### L AB99, LAB17 ####Business Account Manager: SAGE PEPE ([phone])[facility] AV [facility] (SWRLAB)[address] ALT [Catalytic activity/Vol] 32 U/L High <30 [facility] Comment on above: Performed By: #### Jeana PIZARRO99, LAB17 ####Business Account Manager: SAGE PEPE ([phone])[facility] AV [facility] (SWRLAB)[address] Anion gap [Moles/Vol] 7 mmol/L Normal 3-13 [facility] Comment on above: Performed By: #### L AB99, LAB17 ####Business Account Manager: SAGE PEPE ([phone])[facility] AV [facility] (SWRLAB)[address] [place] [address] [place] AST [Catalytic activity/Vol] 29 U/L Normal <34 [facility] Comment on above: Performed By: #### L AB99, LAB17 ####Business Account Manager: SAGE PEPE ([id number])[facility] AV [facility] (SWRLAB)[address] [place] [address] [place] Bilirubin [Mass/Vol] 0.6 mg/dL Normal <1.2 [facility] Comment on above: Performed By: #### L AB99, LAB17 ####Business Account Manager: SAGE PEPE ([phone])[facility] (SWRLAB)[address] [place] [address] [place] Calcium [Mass/Vol] 9.4 mg/dL Normal 8.4-10.2 [facility] Comment on above: Performed By: #### L AB99, LAB17 ####Business Account Manager: SAGE PEPE ([id number])[facility] LE[facility] (SWRLAB)[address] [place] [address] [place] Chloride [Moles/Vol] 106 mmol/L Normal 98-107 [facility] Comment on above: Performed By: #### L AB99, LAB17 ####Business Account Manager: SAGE PEPE ([id number])[facility] (SWRLAB)[address] [place] [address] [place] CO2 [Moles/Vol] 27 mmol/L Normal 22-29 [facility] Comment on above: Performed By: #### Jeana ROSA, LAB17 ####Business Account Manager: SAGE PEPE ([id number])[facility] (SWRLAB)[address] [place] [address] [place] Creatinine [Mass/Vol] 1.04 mg/dL Normal 0.57-1.11 [facility] Comment on above: Performed By: #### L 99, LAB17 ####Business Account Manager: SAGE PEPE ([phone])[facility] (SWRLAB)[address] [place] [address] [place] GLOMERULAR FILTRATION RATE ML/MIN/1.73 SQ M.PREDICTED 67.7 mL/min/1.73m*2 Normal >60.0 [facility] Comment on above: Result Comment: Calc ulation based on the Chronic Kidney Disease Epidemiology Collaboration (CKD-EPI) equation refit without adjustment for race Performed By: #### L AB99, LAB17 ####Business Account Manager: SAGE PEPE ([phone])[facility] (SWRLAB)[address] [place] [address] [place] Glucose [Mass/Vol] 98 mg/dL Normal 74-100 [facility] Comment on above: Performed By: #### L AB99, LAB17 ####Business Account Manager: SAGE PEPE ([id number])[facility] AV [facility] (SWRLAB)[address] [place] [address] [place] Potassium [Moles/Vol] 3.7 mmol/L Normal 3.5-5.1 [facility] Comment on above: Result Comment: [facility] potassium values may be up to 0.5 mmol/L lower than serum values. Performed By: #### L [id number], [id number] ####Business Account Manager: SAGE PEPE ([phone])[facility] (SWRLAB)[address] [place] [address] Protein [Mass/Vol] 7.7 g/dL Normal 6.4-8.3 [facility] Comment on above: Performed By: #### L [id number], [id number] ####Business Account Manager: SAGE PEPE ([phone])[facility] [place] (SWRL[place])[address] [place] [address] Sodium [Moles/Vol] 140 mmol/L Normal 136-145 [facility] Comment on above: Performed By: #### L [id number], [id number] ####Business Account Manager: SAGE PEPE ([phone])[facility] [place] (SWRLAB)[address] [place] [address] Urea nitrogen [Mass/Vol] 10 mg/dL Normal 8-21 [facility] Comment on above: Performed By: #### L [id number], [id number] ####Business Account Manager: SAGE PEPE ([phone])[facility] RODRIGUEZAV [place] (SWRLAB)[address] [place] [address] CT ABDOMEN PELVIS WO IV CONT RASTon 12-17-2024 CT ABDOMEN PELVIS WO IV CONTRAST Patient Name: SALLY VARGAS : 1980 Exam Date/Time: 12/17/2024 12:52 Procedure: CT ABDOMEN PELVIS WO IV CONTRAST Ordering Provider: WHITE QUENTIN Reason For Exam: Abdominal pain, acute, nonlocalized CT ABDOMEN AND PELVIS WITHOUT CONTRAST CLINICAL INDICATION: Abdominal pain, acute, nonlocalized. TECHNIQUE: Transaxial sequence through the abdomen and pelvis without contrast with 3 mm reconstruction. Sagittal coronal reconstruction images included. Dose reduction was employed with automated exposure control. COMPARISON: 12/12/2024 FINDINGS: Exam quality: Suboptimal for the evaluation of solid organs due to the lack of intravenous contrast and suboptimal for evaluation of the gastrointestinal tract due to lack of oral contrast. Chest base: Normal. Liver: Generalized diminished attenuation as compared to the spleen, corresponding to diffuse fatty infiltration. Fluid attenuation cysts are unchanged. Biliary tree: Normal caliber. Gallbladder surgically absent Spleen: Normal. Adrenals: Normal. Pancreas: Unremarkable. Kidneys: No contour abnormality or focal renal lesion. Renal collecting systems: Nonobstructing calculi on the left include three foci measuring as large as 0.4 cm. No calculus on the right. No hydronephrosis. Free fluid: None. Retroperitoneal/mesenter ic lymphadenopathy: None. Aorta: Normal caliber. Bowel: Retained feces. No bowel dilatation. Abdominal wall: Normal. Bladder: No calculi or filling defects. Pelvic organs/viscera: No mass identified. Pelvic lymphadenopathy: None. Osseous structures: Normal. IMPRESSION: 1. Nonobstructing left renal calculi without change. 2. Fatty liver Report Dictated on Electronically Signed By: Marcelino Griffiths MD Electronically Signed Date/Time: 12/17/2024 1:44 PM EDT PT has known contrast allergy. PT done without contrast. Pt to ER with complaint of pelvic pain. And vaginal discharge. States she has had a hysterectomy. Pt was seen at [place] recently for same and has not improved. Taking Acushnet without relief. Rates pain 9/10 at this time. States had some slightly bloody vaginal discharge. Normal [facility] CT Abdomen and Pelvis WO con traston 12-17-2024 1. Nonobstructing le ft renal calculi without change. 2. Fatty liver Report Dictated on Electronically Signed By: Marcelino Griffiths MD Electronically Signed Date/Time: 12/17/2024 1:44 PM EDT [facility] Patient Name: SALLY BALLARD : 1980 Exam Date/Time: 12/17/2024 12:52 Procedure: CT ABDOMEN PELVIS WO IV CONTRAST Ordering Provider: WHITE QUENTIN Reason For Exam: Abdominal pain, acute, nonlocalized CT ABDOMEN AND PELVIS WITHOUT CONTRAST CLINICAL INDICATION: Abdominal pain, acute, nonlocalized. TECHNIQUE: Transaxial sequence through the abdomen and pelvis without contrast with 3 mm reconstruction. Sagittal coronal reconstruction images included. Dose reduction was employed with automated exposure control. COMPARISON: 12/12/2024 FINDINGS: Exam quality: Suboptimal for the evaluation of solid organs due to the lack of intravenous contrast and suboptimal for evaluation of the gastrointestinal tract due to lack of oral contrast. Chest base: Normal. Liver: Generalized diminished attenuation as compared to the spleen, corresponding to diffuse fatty infiltration. Fluid attenuation cysts are unchanged. Biliary tree: Normal caliber. Gallbladder surgically absent Spleen: Normal. Adrenals: Normal. Pancreas: Unremarkable. Kidneys: No contour abnormality or focal renal lesion. Renal collecting systems: Nonobstructing calculi on the left include three foci measuring as large as 0.4 cm. No calculus on the right. No hydronephrosis. Free fluid: None. Retroperitoneal/mesenter ic lymphadenopathy: None. Aorta: Normal caliber. Bowel: Retained feces. No bowel dilatation. Abdominal wall: Normal. Bladder: No calculi or filling defects. Pelvic organs/viscera: No mass identified. Pelvic lymphadenopathy: None. Osseous structures: Normal. [facility] Marcelino Griffiths MD - 12/17/2024 Patient Name: SALLY VARGAS : 1980 Exam Date/Time: 12/17/2024 12:52 Procedure: CT ABDOMEN PELVIS WO IV CONTRAST Ordering Provider: WHITE QUENTIN Reason For Exam: Abdominal pain, acute, nonlocalized CT ABDOMEN AND PELVIS WITHOUT CONTRAST CLINICAL INDICATION: Abdominal pain, acute, nonlocalized. TECHNIQUE: Transaxial sequence through the abdomen and pelvis without contrast with 3 mm reconstruction. Sagittal coronal reconstruction images included. Dose reduction was employed with automated exposure control. COMPARISON: 12/12/2024 FINDINGS: Exam quality: Suboptimal for the evaluation of solid organs due to the lack of intravenous contrast and suboptimal for evaluation of the gastrointestinal tract due to lack of oral contrast. Chest base: Normal. Liver: Generalized diminished attenuation as compared to the spleen, corresponding to diffuse fatty infiltration. Fluid attenuation cysts are unchanged. Biliary tree: Normal caliber. Gallbladder surgically absent Spleen: Normal. Adrenals: Normal. Pancreas: Unremarkable. Kidneys: No contour abnormality or focal renal lesion. Renal collecting systems: Nonobstructing calculi on the left include three foci measuring as large as 0.4 cm. No calculus on the right. No hydronephrosis. Free fluid: None. Retroperitoneal/mesenter ic lymphadenopathy: None. Aorta: Normal caliber. Bowel: Retained feces. No bowel dilatation. Abdominal wall: Normal. Bladder: No calculi or filling defects. Pelvic organs/viscera: No mass identified. Pelvic lymphadenopathy: None. Osseous structures: Normal. IMPRESSION: 1. Nonobstructing left renal calculi without change. 2. Fatty liver Report Dictated on Electronically Signed By: Marcelino Griffiths MD Electronically Signed Date/Time: 12/17/2024 1:44 PM EDT [facility] Radiology Study observation (narrative) [facility] CT Abdomen and Pelvis WO con trastOrdered By: Marcelino Griffiths on 12-17-2024 [facility] [employer] Work Phone: Comprehensive metabolic 1998 panelon 12-17-2024 Albumin [Mass/Vol] 4.1 g/dL 3.5 - 5.0 g/dL [facility] ALP [Catalytic activity/Vol] 120 U/L 40 - 150 U/L [facility] ALT [Catalytic activity/Vol] 32 U/L High NINF - 30 U/L [facility] Anion gap [Moles/Vol] 7 mmol/L 3 - 13 mmol/L [facility] AST [Catalytic activity/Vol] 29 U/L NINF - 34 U/L [facility] Bilirubin [Mass/Vol] 0.6 mg/dL NINF - 1.2 mg/dL [facility] Calcium [Mass/Vol] 9.4 mg/dL 8.4 - 10. 2 mg/dL [facility] Chloride [Moles/Vol] 106 mmol/L 98 - 10 7 mmol/L [facility] CO2 [Moles/Vol] 27 mmol/L 22 - 29 mmol/L [facility] Creatinine [Mass/Vol] 1.04 mg/dL 0.57 - 1.11 mg/dL [facility] GFR/1.73 sq M.predicted (S/P/Bld) [Vol rate/Area] 67.7 mL/min - PINF [facility] Comment on above: Calculation based on the Chronic Kidney Disease Epidemiology Collaboration (CKD-EPI) equation refit without adjustment for race Glucose [Mass/Vol] 98 mg/dL 74 - 100 mg/dL [facility] Interpretation and review of laboratory results Abnormal [facility] Potassium [Moles/Vol] 3.7 mmol/L 3.5 - 5.1 mmol/L [facility] Comment on above: Plasma potassium rc ues may be up to 0.5 mmol/L lower than serum values. Protein [Mass/Vol] 7.7 g/dL 6.4 - 8.3 g/dL [facility] Sodium [Moles/Vol] 140 mmol/L 136 - 145 mmol/L [facility] Urea nitrogen [Mass/Vol] 10 mg/dL 8 - 21 mg/dL [facility] ED Nursing Noteon 12-17-2024 ED Nursing Note Pt observed on camer a getting into her vehicle and driving away after being instructed not to drive after receiving narcotics in the ER Normal [facility] ED Nursing Note Discussed with pt th e need to get a ride home due to receiving IV narcotic pain medication. Pt states she will sit in the waiting room and not drive home. Normal [facility] ED Nursing Note Pt instructed on alex f swab for GC/ chlamydia and verbalized understanding Normal [facility] ED Nursing Note Pt to ER with compla int of pelvic pain. And vaginal discharge. States she has had a hysterectomy. Pt was seen at [place] recently for same and has not improved. Taking Acushnet without relief. Rates pain 9/10 at this time. States had some slightly bloody vaginal discharge. Denies urinary symptoms, vomiting or diarrhea. + nausea which is unrelieved by Zofran. Pt ambulatory on arrival with steady gait. Alert and oriented x 4. Skin warm and dry. Respirations even and unlabored. Pt changed into hospital gown. Call light in reach. Normal [facility] ED Provider Noteon ED Provider Note EMERGENCY DEPARTMENT ENCOUNTER Pt Name: Sally Vargas Birthdate 1980 Date of evaluation: 12/17/2024 ED Provider: Emiliano White MD CHIEF COMPLAINT Chief Complaint Patient presents with ? Abdominal Pain ? Vaginal Discharge HISTORY OF PRESENT ILLNESS (Location/Symptom, Timing/Onset, Context/Setting, Quality, Duration, Modifying Factors, Severity) Note limiting factors. I wore appropriate PPE for the entirety of this encounter. HPI Sally Vargas is a 44 y.o. who presents to the emergency department with chief complaint of chronic lower abdominal pain she had a hysterectomy for similar but is had worsening pain since July. She was seen twice in the last week had a CT and transvaginal ultrasound as well as blood work all of its come back reassuring. She has follow-up with [facility] in 4 days Nursing Notes were reviewed. Limitations to history: Outside historians: REVIEW OF SYSTEMS Review of Systems Pertinent positives and negatives as per HPI. PAST MEDICAL HISTORY Past Medical History: Diagnosis Date ? Cancer (CMS/HCC) (HCC) ? Chicken pox ? High cholesterol ? History of blood transfusion 2006 ? Kidney stones ? Right ureteral calculus 09/05/2019 SURGICAL HISTORY Past Surgical History: Procedure Laterality Date ? CHOLECYSTECTOMY ? CYSTOSCOPY 09/05/2019 cystoscopy, bilateral retrograde pyelograms, right ureteroscopy ? EXPLORATORY LAPAROTOMY Laparotomy RSO ? EXPLORATORY LAPAROTOMY 12/02/2016 exp lap, extensive lysis of adhesions, left ureterlysis and excision of left pelvic sidewall ? HYSTERECTOMY ? LAPAROSCOPY DIAGNOSTIC / BIOPSY / ASPIRATION / LYSIS ? LIVER SURGERY 2020 removed cyst ? URETEROSCOPY Right 09/05/2019 C&P ( normal bilat). Right ureteroscopy-negative ( passessed stones). [place] CURRENT MEDICATIONS Previous Medications COLESTIPOL (COLESTID) 1 G TABLET Take 1 g by mouth twice a day. EPINEPHRINE (EPIPEN) 0.3 MG/0.3ML INJECTION SYRINGE As directed ESTRADIOL (ESTRACE) 0.5 MG TABLET TAKE 1 TABLET BY MOUTH EVERY DAY GABAPENTIN (NEURONTIN) 400 MG CAPSULE Take 400 mg by mouth every 12 hours. HYDROCODONE-ACETAMINOPHE N (NORCO) 5-325 MG TABLET Take 1 tablet by mouth every 6 hours as needed for severe pain (7-10) for up to 5 days. HYDROCODONE-ACETAMINOPHE N (NORCO) 5-325 MG TABLET Dose = 1 tab(s), Oral, q6h, PRN for pain, tab(s), 0 Refill(s), 95.1 ONDANSETRON ODT (ZOFRAN-ODT) 4 MG DISINTEGRATING TABLET 4 mg. PANTOPRAZOLE (PROTONIX) 40 MG EC TABLET Take 40 mg by mouth. PAROXETINE (PAXIL) 10 MG TABLET TAKE 1 TABLET (10 MG) BY MOUTH DAILY. PROMETHAZINE (PHENERGAN) 25 MG TABLET 25 mg. SUMATRIPTAN SUCCINATE 6 MG/0.5ML SOLUTION CARTRIDGE Inject 6 mg under the skin. TOPIRAMATE (TOPAMAX) 25 MG TABLET Take 25 mg by mouth twice a day. ALLERGIES Fentanyl, Iodine, Metronidazole, Salicylates, Cephalexin, Gadolinium derivatives, Iodinated contrast media, Nsaids, Ondansetron, Penicillins, Promethazine, Toradol [ketorolac tromethamine], Chlorhexidine, Ciprofloxacin, and Dicyclomine FAMILY HISTORY Family History Problem Relation Name Age of Onset ? Other (70298) Mother blood clots ? Hyperlipidemia Mother ? High Blood Pressure Mother SOCIAL HISTORY Social History Socioeconomic History ? Marital status: Tobacco Use ? Smoking status: Every Day Current packs/day: 0.50 Types: Cigarettes ? Smokeless tobacco: Never Vaping Use ? Vaping status: Never Used Substance and Sexual Activity ? Alcohol use: Yes Alcohol/week: 0.0 standard drinks of alcohol ? Drug use: Yes Types: Marijuana Comment: occasional gummy Social Drivers of Health Financial Resource Strain: Patient Declined (12/14/2023) Received from [facility] Overall Financial Resource Strain (CARDIA) ? Difficulty of Paying Living Expenses: Patient declined Food Insecurity: Patient Declined (12/14/2023) Received from [facility] Hunger Vital Sign ? Worried About Running Out of Food in the Last Year: Patient declined ? Ran Out of Food in the Last Year: Patient declined Transportation Needs: Patient Declined (12/14/2023) Received from [facility] PRAPARE - Transportation ? Lack of Transportation (Medical): Patient declined ? Lack of Transportation (Non-Medical): Patient declined Physical Activity: Patient Declined (12/14/2023) Received from [facility] Exercise Vital Sign ? Days of Exercise per Week: Patient declined ? Minutes of Exercise per Session: Patient declined Stress: No Stress Concern Present (11/15/2020) Received from [facility], [facility] [place] of Occupational Health - Occupational Stress Questionnaire ? Feeling of Stress : Only a little Social Connections: Unknown (12/14/2023) Received from [facility] Social Connection and Isolation Panel [NHANES] ? Active Member of Clubs or Organizations: Patient declined ? Marital Status: Patient declined H (more content not included)... Normal [facility] LIPASEon 12-17-2024 Lipase [Catalytic activity/Vol] 14 U/L Normal <55 [facility] Comment on above: Performed By: #### L [id number], [id number] ####Business Account Manager: SAGE PEPE ([phone])[facility] (SWRL[facility])[address] [place] [address] Laboratory - Chemistry and C hemistry - challengeon 12-17-2024 Lipase [Catalytic activity/Vol] 14 U/L NINF - 55 U/L [facility] Lipase [Catalytic activity/V ol]on 12-17-2024 Interpretation and review of laboratory results Normal [facility] Progress Noteon 12-17-2024 Progress Note Culture reviewed, pl ease contact patient and inform them of the results and needs flagyl 500mg po tid for 7 days, #21 Normal [facility] Urinalysis complete panel (U )Ordered By: Ry Farah on 12-17-2024 Bacteria LM.HPF (Urine sed) [#/Area] Moderate Abnormal Negative /HPF [facility] Bilirubin Ql (U) Negative Negative mg/dL [facility] Clarity (U) Turbid Abnormal Clear [facility] Color (U) Light Yellow Lt. Yellow [facility] Epithelial cells.squamous LM.HPF (Urine sed) [#/Area] 6-10 Abnormal [facility] Glucose Ql (U) Normal Normal (<70) mg/dL [facility] Hemoglobin Ql (U) Negative Negative mg/dL [facility] Interpretation and review of laboratory results Abnormal [facility] Ketones (U) [Mass/Vol] Negative Negat melecio mg/dL [facility] Leukocyte esterase Test strip Ql (U) Negative Negative Ezra/uL [facility] Nitrite Ql (U) Negative Negative [facility] pH (U) 5.5 [pH] 5.0 - 8.0 pH [facility] Protein (U) [Mass/Vol] Negative Negat melecio mg/dL [facility] RBC LM.HPF (Urine sed) [#/Area] Negative [facility] Specific gravity (U) [Rel density] 1.01 1.005 - 1.030 [facility] Urobilinogen (U) [Mass/Vol] Normal Normal (0-1) mg/dL [facility] Volume, Urine 12 mL [facility] WBC LM.HPF (Urine sed) [#/Area] 0-2 [facility] VAGINITIS PANEL MVP PCRon VAGINITIS PANEL MVP PCR BACTERIAL VAGINO SIS MVP PCR (A) Reference Detected Not Detected PILLO SPP MVP PCR Reference Not Detected Not Detected PILLO GLABRATA/KRUSEI MVP PCR Reference Not Detected Not Detected TRICHOMONAS VAGINALIS MVP PCR Reference Not Detected Not Detected ORDER COMMENTS: Methodology: real-time PCR A negative result does not preclude a possible infection. This assay can detect the Pillo species C. albicans, C. tropicalis, C. parapsilosis, and C. dubliniensis but does not differentiate among them. The assay also detects C. glabrata and C. krusei, but does not differentiate between them. Results should be interpreted in conjunction with other clinical data. This test has not been validated for use with specimens collected by patients at home. This test is intended for medical purposes only and is not valid for the evaluation of suspected sexual abuse or for other forensic purposes. [facility] Comment on above: Performed By: #### L [id number] ####Business Account Manager: SAGE PEPE ([phone])[address] 36on 12-15-2024 36 LVM for patient to return call to schedule ED follow up [facility] 36 Name of Caller: Giovanna molina Contact Reason for Appointment: Patient was seen in the ED for abdominal pain 12-15. Patient states she needs to be seen right away. Unable to find a sooner appointment. Has not been seen with Dr. Story in over 3 years. Please Advise. Office Name: OBGYN Medication Refills need, if any: N/A Medication Name: N/A [facility] CBC W Auto Differential pane l (Bld)on 12-15-2024 Basophils (Bld) [#/Vol] 0.1 10*3/uL 0.0 - 0.2 10*3/uL [facility] Basophils/100 WBC (Bld) 0.6 % 0.0 - 2.0 % [facility] Eosinophils (Bld) [#/Vol] 0.2 10*3/uL 0.0 - 0.5 10*3/uL [facility] Eosinophils/100 WBC (Bld) 2.2 % 0.0 - 6.0 % [facility] Erythrocyte distribution width (RBC) [Ratio] 13.1 % 11.5 - 15.0 % [facility] Hematocrit (Bld) [Volume fraction] 40.2 % 35.0 - 47.0 % [facility] Hemoglobin (Bld) [Mass/Vol] 13.3 g/dL 11.7 - 16.0 g/dL [facility] Immature granulocytes (Bld) [#/Vol] 0.1 10*3/uL High NINF - 0.1 10*3/uL [facility] Immature granulocytes/100 WBC (Bld) 1.3 % 0.0 - 2.0 % [facility] Interpretation and review of laboratory results Abnormal [facility] Lymphocytes (Bld) [#/Vol] 3.7 10*3/uL 1.0 - 4.3 10*3/uL [facility] Lymphocytes/100 WBC (Bld) 36.5 % 15.0 - 45.0 % [facility] MCH (RBC) [Entitic mass] 30.2 pg 26.0 - 34.0 pg [facility] MCHC (RBC) [Mass/Vol] 33.1 % 30.5 - 36.0 % [facility] MCV (RBC) [Entitic vol] 91.2 fL 77.0 - 99.0 fL [facility] Monocytes (Bld) [#/Vol] 0.6 10*3/uL 0.0 - 0.9 10*3/uL [facility] Monocytes/100 WBC (Bld) 6.1 % 5.0 - 13.0 % [facility] Neutrophils (Bld) [#/Vol] 5.4 10*3/uL 1.8 - 7.5 10*3/uL [facility] Neutrophils/100 WBC (Bld) 53.3 % 38.0 - 82.0 % [facility] Nucleated RBC/100 WBC (Bld) [Ratio] 0 % [facility] Platelet mean volume (Bld) [Entitic vol] 10.3 fL 9.0 - 12.7 fL [facility] Platelets (Bld) [#/Vol] 271 10*3/uL 140 - 440 10*3/uL [facility] RBC (Bld) [#/Vol] 4.41 10*6/uL 3.80 - 5.2 0 10*6/uL [facility] WBC (Bld) [#/Vol] 10.1 10*3/uL 3.6 - 10.7 10*3/uL [facility] CBC WITH AUTO DIFFERENTIALon 12-15-2024 Basophils (Bld) [#/Vol] 0.1 10*3/uL Normal 0.0-0.2 [facility] Comment on above: Performed By: #### L [id number] ####Business Account Manager: CANDELARIA FREITAS ([phone])[facility] [place] (SBHLAB)[address] Basophils/100 WBC (Bld) 0.6 % Normal 0.0-2.0 [facility] Comment on above: Performed By: #### L [id number] ####Business Account Manager: CANDELARIA FREITAS ([phone])[facility] [place] (SBHLAB)[address] [place] [address] Eosinophils (Bld) [#/Vol] 0.2 10*3/uL Normal 0.0-0.5 [facility] Comment on above: Performed By: #### L [id number] ####Business Account Manager: CANDELARIA FREITAS ([phone])[facility] [place] (SBHLAB)[address] [place] [address] [place] Eosinophils/100 WBC (Bld) 2.2 % Normal 0.0-6.0 [facility] Comment on above: Performed By: #### L [id number] ####Business Account Manager: CANDELARIA FREITAS ([phone])[facility] [place] (SBHLAB)[address] Erythrocyte distribution width (RBC) [Ratio] 13.1 % Normal 11.5-15.0 [facility] Comment on above: Performed By: #### L [id number] ####Business Account Manager: CANDELARIA FREITAS ([phone])[facility] (SBHLAB)[address] Hematocrit (Bld) [Volume fraction] 40.2 % Normal 35.0-47.0 [facility] Comment on above: Performed By: #### L [id number] ####Business Account Manager: CANDELARIA FREITAS ([phone])[facility] (SBAB)[address] Hemoglobin (Bld) [Mass/Vol] 13.3 g/dL Normal 11.7-16.0 [facility] Comment on above: Performed By: #### L [id number] ####Business Account Manager: CANDELARIA FREITAS ([phone])[facility]BRE[facility] (SBAB)[address] IMMATURE GRANS % 1.3 % Normal 0.0-2.0 [facility] Comment on above: Performed By: #### L [id number] ####Business Account Manager: CANDELARIA FREITAS ([phone])[facility]BRE[facility] (SBAB)[address] IMMATURE GRANS ABSOLUTE 0.1 10*3/uL High <0.1 [facility] Comment on above: Performed By: #### L [id number] ####Business Account Manager: CANDELARIA FREITAS ([phone])[facility]BRE[facility] (SBHLAB)[address] Lymphocytes (Bld) [#/Vol] 3.7 10*3/uL Normal 1.0-4.3 [facility] Comment on above: Performed By: #### L [id number] ####Business Account Manager: CANDELARIA FREITAS ([phone])[facility]BRE[facility]AB[facility] (SBAB)[address] Lymphocytes/100 WBC (Bld) 36.5 % Normal 15.0-45.0 [facility] Comment on above: Performed By: #### L [id number] ####Business Account Manager: CANDELARIA FREITAS ([phone])[facility]ITALHanna [place] (SBHLAB)[address] MCH (RBC) [Entitic mass] 30.2 pg Normal 26.0-34.0 [facility] Comment on above: Performed By: #### L [id number] ####Business Account Manager: CANDELARIA FREITAS ([phone])[facility]ITALHanna [facility] HOSPITALJabari (SBHLAB)[address] MCHC 33.1 % Normal 30.5-36.0 [facility] Comment on above: Performed By: #### L [id number] ####Business Account Manager: CANDELARIA FREITAS ([phone])[facility]ITAL[facility] (SBHLAB)[address] MCV (RBC) [Entitic vol] 91.2 fL Normal 77.0-99.0 [facility] Comment on above: Performed By: #### L [id number] ####Business Account Manager: CANDELARIA FREITAS ([phone])[facility] ([facility])[address] [place] [address] Monocytes (Bld) [#/Vol] 0.6 10*3/uL Normal 0.0-0.9 [facility] Comment on above: Performed By: #### L [id number] ####Business Account Manager: CANDELARIA FREITAS ([phone])[facility] ([facility])[address] Monocytes/100 WBC (Bld) 6.1 % Normal 5.0-13.0 [facility] Comment on above: Performed By: #### L [id number] ####Business Account Manager: CANDELARIA FREITAS ([phone])[facility] ([facility])[address] NEUTROPHILS ABSOLUTE 5.4 10*3/uL Normal 1.8-7.5 [facility] Comment on above: Performed By: #### L [id number] ####Business Account Manager: CANDELARIA FREITAS ([phone])[facility] [place] (SBHLAB)[address] Neutrophils/100 WBC (Bld) 53.3 % Normal 38.0-82.0 [facility] Comment on above: Performed By: #### L [id number] ####Business Account Manager: CANDELARIA HOFFSARAH ([phone])[facility] [place] (SBHLAB)[address] NRBC 0.0 /100 WBCs Normal 0.0-2.0 [facility] Comment on above: Performed By: #### L [id number] ####Business Account Manager: CANDELARIA HOFFSARAH ([phone])[facility] [place] (SBHLAB)[address] Platelet mean volume (Bld) [Entitic vol] 10.3 fL Normal 9.0-12.7 [facility] Comment on above: Performed By: #### L [id number] ####Business Account Manager: CANDELARIA FREITAS ([phone])[facility] [place] (SBHLAB)[address] [place] [address] [place] Platelets (Bld) [#/Vol] 271 10*3/uL Normal 140-440 [facility] Comment on above: Performed By: #### L [id number] ####Business Account Manager: CANDELARIA HOFFSARAH ([phone])[facility] [place] (SBHLAB)[address] [place] [address] [place] RBC (Bld) [#/Vol] 4.41 10*6/uL Normal 3.80-5.20 [facility] Comment on above: Performed By: #### L [id number] ####Business Account Manager: CANDELARIA FREITAS ([phone])[facility] [place] (SBHLAB)[address] [place] [address] [place] WBC (Bld) [#/Vol] 10.1 10*3/uL Normal 3.6-10.7 [facility] Comment on above: Performed By: #### L [id number] ####Business Account Manager: CANDELARIA FREITAS ([phone])[facility] [place] (SBHLAB)[address] COMPLETE URINALYSISon 2024 BACTERIA (#/HPF) IN URINE Negative Normal Negative [facility] Comment on above: Performed By: #### L [id number] ####Business Account Manager: CANDELARIA FREITAS ([phone])[facility] (SBHLAB)[address] BILIRUBIN, TOTAL PRESENCE IN URINE Negative Normal Negative [facility] Comment on above: Performed By: #### L [id number] ####Business Account Manager: CANDELARIA FREITAS ([phone])[facility] Clarity (U) Clear Normal Clear [facility] Comment on above: Performed By: #### L [id number] ####Business Account Manager: CANDELARIA FREITAS ([phone])[facility] [place] [address] Color (U) Light Yellow Normal Lt. Yellow [facility] Comment on above: Performed By: #### L [id number] ####Business Account Manager: CANDELARIA FREITAS ([phone])[facility] (SBHLAB)[address] GLUCOSE (MG/DL) IN URINE Normal Normal Normal (<70) [facility] Comment on above: Performed By: #### L [id number] ####Business Account Manager: CANDELARIA FREITAS ([phone])[facility] (SBHLAB)[address] HEMOGLOBIN PRESENCE IN URINE 0.06 mg/dL Abnormal Negative [facility] Comment on above: Performed By: #### L [id number] ####Business Account Manager: CANDELARIA FREITAS ([phone])[facility] [place] (SBHLAB)[address] HYALINE CASTS (#/LPF) IN URINE SEDIMENT BY MICROSCOPY 6-10 Abnormal Negative [facility] Comment on above: Performed By: #### L [id number] ####Business Account Manager: CANDELARIA FREITAS ([phone])[facility] [place] (SBHLAB)[address] Ketones Ql (U) Negative Normal Negative [facility] Comment on above: Performed By: #### L [id number] ####Business Account Manager: CANDELARIA FREITAS ([phone])[facility] [place] ([facility] LEUKOCYTE ESTERASE PRESENCE IN URINE BY TEST STRIP 75 Ezra/uL Abnormal Negative [facility] Comment on above: Performed By: #### L [id number] ####Business Account Manager: CANDELARIA FREITAS ([phone])[facility] [place] (HLAB)[address] [place] [address] [place] MUCUS (#/LPF) IN URINE SEDIMENT Few Normal Negative [facility] Comment on above: Performed By: #### L [id number] ####Business Account Manager: CANDELARIA FREITAS ([phone])[facility] [place] (HLAB)[address] NITRITE PRESENCE IN URINE Negative Normal Negative [facility] Comment on above: Performed By: #### L [id number] ####Business Account Manager: CANDELARIA FREITAS ([phone])[facility] [place] (SBHLAB)[address] pH (U) 5.5 [pH] Normal 5.0-8.0 [facility] Comment on above: Performed By: #### L [id number] ####Business Account Manager: CANDELARIA FREITAS ([phone])[facility] [place] (SBHLAB)[address] [place] [address] [place] Protein (U) [Mass/Vol] Negative Normal Negative [facility] Comment on above: Performed By: #### L [id number] ####Business Account Manager: CANDELARIA FREITAS ([phone])[facility] [place] (SBHLAB)[address] [place] [address] RBC (#/HPF) IN URINE SEDIMENT 0-2 Normal 0-2 [facility] Comment on above: Performed By: #### L [id number] ####Business Account Manager: CANDELARIA FREITAS ([phone])[facility] ([facility])[address] Specific gravity (U) [Rel density] 1.010 Normal 1.005-1.030 [facility] Comment on above: Performed By: #### L [id number] ####Business Account Manager: CANDELARIA HOFFSARAH ([phone])[facility] (SBHLAB)[address] [place] [address] SQUAMOUS EPITHELIAL CELLS (#/HPF) IN URINE SEDIMENT 0-2 Normal 3-5 [facility] Comment on above: Performed By: #### L [id number] ####Business Account Manager: CANDELARIA FREITAS ([phone])[facility] ([facility])[address] [place] [address] UROBILINOGEN (MG/DL) IN URINE Normal Normal Normal (0-1) [facility] Comment on above: Performed By: #### L [id number] ####Business Account Manager: CANDELARIA FREITAS ([phone])[facility] ([facility])[address] [place] [address] WBC (LEUKOCYTE) (#/HPF) IN URINE SEDIMENT 3-5 Normal 0-5 [facility] Comment on above: Performed By: #### L [id number] ####Business Account Manager: CANDELARIA FREITAS ([phone])[facility] (SBHLAB)[address] [place] [address] COMPREHENSIVE METABOLIC PANE [place] 12-15-2024 Albumin [Mass/Vol] 4.2 g/dL Normal 3.5-5.0 [facility] Comment on above: Performed By: #### L AB17, LAB99 ####Business Account Manager: CANDELARIAELY FREITAS ([phone])[facility] ([facility])[address] ALP [Catalytic activity/Vol] 123 U/L Normal 40-150 [facility] Comment on above: Performed By: #### L AB17, LAB99 ####Business Account Manager: CANDELARIAELY FREITAS ([phone])[facility] (SBHLAB)[address] ALT [Catalytic activity/Vol] 28 U/L Normal <30 [facility] Comment on above: Performed By: #### L AB17, LAB99 ####Business Account Manager: CANDELARIA FREITAS ([phone])[facility] (SBHLAB)[address] Anion gap [Moles/Vol] 12 mmol/L Normal 3-13 [facility] Comment on above: Performed By: #### L AB17, LAB99 ####Business Account Manager: CANDELARIA FORTINO ([phone])[facility] (SBHLAB)[address] AST [Catalytic activity/Vol] 48 U/L High <34 [facility] Comment on above: Result Comment: TC Significant interference from hemolysis. Result integrity compromised. Interpret with caution. Performed By: #### L AB17, LAB99 ####Business Account Manager: CNADELARIA FORTINO ([phone])[facility] (SBHLAB)[address] Bilirubin [Mass/Vol] 0.4 mg/dL Normal <1.2 [facility] Comment on above: Performed By: #### L AB17, LAB99 ####Business Account Manager: CANDELARIA GARCIAELMO ([phone])[facility] (SBHLAB)[address] Calcium [Mass/Vol] 9.4 mg/dL Normal 8.4-10.2 [facility] Comment on above: Performed By: #### L AB17, LAB99 ####Business Account Manager: CANDELARIA FREITAS ([phone])[facility] (SBHLAB)[address] Chloride [Moles/Vol] 107 mmol/L Normal 98-107 [facility] Comment on above: Performed By: #### L AB17, LAB99 ####Business Account Manager: CANDELARIA FREITAS ([phone])[facility] (SB[facility])[address] CO2 [Moles/Vol] 19 mmol/L Low 22-29 [facility] Comment on above: Performed By: #### L AB17, LAB99 ####Business Account Manager: CANDELARIA FREITAS ([phone])[facility] [place] (SBHLAB)[address] Creatinine [Mass/Vol] 1.10 mg/dL Normal 0.57-1.11 [facility] Comment on above: Performed By: #### L AB17, LAB99 ####Business Account Manager: CANDELARIA FREITAS ([phone])[facility] [place] (SBHLAB)[address] GLOMERULAR FILTRATION RATE ML/MIN/1.73 SQ M.PREDICTED 63.3 mL/min/1.73m*2 Normal >60.0 [facility] Comment on above: Result Comment: Calc ulation based on the Chronic Kidney Disease Epidemiology Collaboration (CKD-EPI) equation refit without adjustment for race ORDER COMMENTS: Specimen slightly hemolyzed Performed By: #### L AB17, LAB99 ####Business Account Manager: CANDELARIA FREITAS ([phone])[facility] (SB[facility])[address] [place] [address] [place] Glucose [Mass/Vol] 110 mg/dL High 74-100 [facility] Comment on above: Performed By: #### L AB17, LAB99 ####Business Account Manager: CANDELARIA FREITAS ([phone])[facility] ([facility])[address] [place] [address] [place] Potassium [Moles/Vol] 4.8 mmol/L Normal 3.5-5.1 [facility] Comment on above: Result Comment: TC Significant interference from hemolysis. Result integrity compromised. Interpret with caution. Performed By: #### L AB17, LAB99 ####Business Account Manager: CANDELARIA FREITAS ([phone])[facility] (SBHLAB)[address] Protein [Mass/Vol] 8.6 g/dL High 6.4-8.3 [facility] Comment on above: Result Comment: TC Potential interference from hemolysis Performed By: #### L AB17, LAB99 ####Business Account Manager: CANDELARIA FREITAS ([phone])[facility] (SB[facility]AB)[address] Sodium [Moles/Vol] 138 mmol/L Normal 136-145 [facility] Comment on above: Performed By: #### L AB17, LAB99 ####Business Account Manager: CANDELARIA FREITAS ([phone])[facility] (SB[facility]AB)[address] Urea nitrogen [Mass/Vol] 10 mg/dL Normal 8-21 [facility] Comment on above: Performed By: #### L AB17, LAB99 ####Business Account Manager: CANDELARIA FREITAS ([phone])[facility] (SBHLAB)[address] [place] [address] Comprehensive metabolic 1998 panelon 12-15-2024 Albumin [Mass/Vol] 4.2 g/dL 3.5 - 5.0 g/dL [facility] ALP [Catalytic activity/Vol] 123 U/L 40 - 150 U/L [facility] ALT [Catalytic activity/Vol] 28 U/L NINF - 30 U/L [facility] Anion gap [Moles/Vol] 12 mmol/L 3 - 13 mmol/L [facility] AST [Catalytic activity/Vol] 48 U/L High NINF - 34 U/L [facility] Comment on above: TC Significant interference from hemolysis. Result integrity compromised. Interpret with caution. Bilirubin [Mass/Vol] 0.4 mg/dL NINF - 1.2 mg/dL [facility] Calcium [Mass/Vol] 9.4 mg/dL 8.4 - 10. 2 mg/dL [facility] Chloride [Moles/Vol] 107 mmol/L 98 - 10 7 mmol/L [facility] CO2 [Moles/Vol] 19 mmol/L Low 22 - 29 mmol/L [facility] Creatinine [Mass/Vol] 1.1 mg/dL 0.57 - 1.11 mg/dL [facility] GFR/1.73 sq M.predicted (S/P/Bld) [Vol rate/Area] 63.3 mL/min - PINF [facility] Comment on above: Calculation based on the Chronic Kidney Disease Epidemiology Collaboration (CKD-EPI) equation refit without adjustment for race Glucose [Mass/Vol] 110 mg/dL High 74 - 100 mg/dL [facility] Interpretation and review of laboratory results Abnormal [facility] Potassium [Moles/Vol] 4.8 mmol/L 3.5 - 5.1 mmol/L [facility] Comment on above: TC Significant interference from hemolysis. Result integrity compromised. Interpret with caution. Protein [Mass/Vol] 8.6 g/dL High 6.4 - 8.3 g/dL [facility] Comment on above: TC Potential interference from hemolysis Sodium [Moles/Vol] 138 mmol/L 136 - 145 mmol/L [facility] Urea nitrogen [Mass/Vol] 10 mg/dL 8 - 21 mg/dL [facility] Specimen slightly hemolyzed [facility] ED Nursing Noteon 12-15-2024 ED Nursing Note IV removed from [facility] prior to DC Normal [facility] ED Provider Noteon ED Provider Note Emergency Department Encounter [facility] ED Patient: Sally Vargas : 1980 Date of Evaluation: 12/15/2024 ED Provider: Fan Wesley DO Chief Complaint Chief Complaint Patient presents with Abdominal Pain Pt reports abd pain with nausea for the past 4 days, reports she went to the restroom and noticed blood in her underwear, she reports a hx of a total hysterectomy [place] Sally Vargas is a 44 y.o. female who presents to the emergency department complaining of abdominal pain. Patient explains that she was in the department a few days prior for abdominal cramping. She felt like when she had a menstrual cycle but has history of a hysterectomy and oophorectomy bilaterally. She was evaluated CT scan, ultrasound and ultimately no abnormalities were noted. She was told that she may have endometriosis. She was discharged on Vicodin. She states she was taking the medication but has been having worsening symptoms. She continues to have pain. Today she noticed blood in her underwear. She noticed this after she urinated. She is unsure where the blood came from but it does note that it did not come from her rectum. Denies fevers or chills. Additional history obtained from : n/a Barriers to obtaining history from patient: n/a ROS: Review of Systems completed as follows: (Bold = positive, Not bold = negative) GENERAL: fevers, chills, malaise ENT: runny nose, congestion, sore throat, ear pain NEURO: weakness, numbness of tingling, headache CARDIOVASCULAR: chest pain, syncope PULMONARY: shortness of breath, cough, wheezing GASTROINTESTINAL: nausea, vomiting, abdominal pain, diarrhea, constipation, MUSCULOSKELETAL: pain GENITAL/URINARY: dysuria, hematuria, increased urinary frequency, hesitancy, flank pain SKIN: rash, lesions, wound Past History Past Medical History: Diagnosis Date Cancer (CMS/HCC) (HCC) Chicken pox High cholesterol History of blood transfusion 2006 Kidney stones Right ureteral calculus 09/05/2019 Past Surgical History: Procedure Laterality Date CHOLECYSTECTOMY CYSTOSCOPY 09/05/2019 cystoscopy, bilateral retrograde pyelograms, right ureteroscopy EXPLORATORY LAPAROTOMY Laparotomy RSO EXPLORATORY LAPAROTOMY 12/02/2016 exp lap, extensive lysis of adhesions, left ureterlysis and excision of left pelvic sidewall HYSTERECTOMY LAPAROSCOPY DIAGNOSTIC / BIOPSY / ASPIRATION / LYSIS LIVER SURGERY 2019 removed cyst URETEROSCOPY Right 09/05/2019 C&P ( normal bilat). Right ureteroscopy-negative ( passessed stones). [place] Social History Socioeconomic History Marital status: Tobacco Use Smoking status: Every Day Current packs/day: 0.50 Types: Cigarettes Smokeless tobacco: Never Substance and Sexual Activity Alcohol use: Yes Alcohol/week: 0.0 standard drinks of alcohol Drug use: Never Social Drivers of Health Financial Resource Strain: Patient Declined (12/14/2023) Received from [facility] Overall Financial Resource Strain (CARDIA) Difficulty of Paying Living Expenses: Patient declined Food Insecurity: Patient Declined (12/14/2023) Received from [facility] Hunger Vital Sign Worried About Running Out of Food in the Last Year: Patient declined Ran Out of Food in the Last Year: Patient declined Transportation Needs: Patient Declined (12/14/2023) Received from [facility] PRAPARE - Transportation Lack of Transportation (Medical): Patient declined Lack of Transportation (Non-Medical): Patient declined Physical Activity: Patient Declined (12/14/2023) Received from [facility] Exercise Vital Sign Days of Exercise per Week: Patient declined Minutes of Exercise per Session: Patient declined Stress: No Stress Concern Present (11/15/2020) Received from [facility], [facility] Citizen Of [place] Eunice of Occupational Health - Occupational Stress Questionnaire Feeling of Stress : Only a little Social Connections: Unknown (12/14/2023) Received from [facility] Social Connection and Isolation Panel [NHANES] Active Member of Clubs or Organizations: Patient declined Marital Status: Patient declined Housing Stability: Patient Declined (12/14/2023) Received from [facility] Housing Stability Vital Sign Unable to Pay for Housing in the Last Year: Patient declined Unstable Housing in the Last Year: Patient declined I have reviewed the history above as provided by nursing notes. Medications/Allergies Discharge Medication List as of 12/15/2024 3:14 AM CONTINUE these medications which have NOT CHANGED Details estradiol (Estrace) 0.5 MG tablet TAKE 1 TABLET BY MOUTH EVERY DAY, Starting 06/06/2023, Normal HYDROcodone-acetaminophe n (Acushnet) 5-325 MG tablet Take 1 tablet by mouth every 6 hours as needed for severe pain (7-10) for up to 5 days., Starting 12/12/2024, Until 12/17/2024 at 2359, Normal ondansetron (Zofran) 4 MG tablet Take 1 tablet (4 m (more content not included)... Normal [facility] LIPASEon 12-15-2024 Lipase [Catalytic activity/Vol] 21 U/L Normal <55 [facility] Comment on above: Performed By: #### L AB17, LAB99 ####Business Account Manager: CANDELARIA FREITAS ([phone])[facility] (SBAB)[address] [place] [address] Laboratory - Chemistry and C hemistry - challengeon 12-15-2024 Lipase [Catalytic activity/Vol] 21 U/L NINF - 55 U/L [facility] Lipase [Catalytic activity/V ol]on 12-15-2024 Interpretation and review of laboratory results Normal [facility] No Panel Informationon 12-15 [facility] Urinalysis complete panel (U )Ordered By: Radha Macias on 12-15-2024 Bacteria LM.HPF (Urine sed) [#/Area] Negative Negative /HPF [facility] Bilirubin Ql (U) Negative Negative mg/dL [facility] Clarity (U) Clear Clear [facility] Color (U) Light Yellow Lt. Yellow [facility] Epithelial cells.squamous LM.HPF (Urine sed) [#/Area] 0-2 [facility] Glucose Ql (U) Normal Normal (<70) mg/dL [facility] Hemoglobin Ql (U) 0.06 mg/dL Abnormal Negative [facility] Hyaline casts Auto (Urine sed) [#/Area] 6-10 Abnormal Negative /LPF [facility] Interpretation and review of laboratory results Abnormal [facility] Ketones (U) [Mass/Vol] Negative Negat melecio mg/dL [facility] Leukocyte esterase Test strip Ql (U) 75 Abnormal Negative Ezra/uL [facility] Mucus LM.HPF (Urine sed) [#/Area] Few Negative /LPF [facility] Nitrite Ql (U) Negative Negative [facility] pH (U) 5.5 [pH] 5.0 - 8.0 pH [facility] Protein (U) [Mass/Vol] Negative Negat melecio mg/dL [facility] RBC LM.HPF (Urine sed) [#/Area] 0-2 [facility] Specific gravity (U) [Rel density] 1.01 1.005 - 1.030 [facility] Urobilinogen (U) [Mass/Vol] Normal Normal (0-1) mg/dL [facility] WBC LM.HPF (Urine sed) [#/Area] 3-5 [facility] 36on 12-14-2024 36 S: Patient spoke wit h [facility] nurse regarding abdominal pain. DONTRELL 2020. B: Onset of symptoms/concern patient was in ER on 12/12/2024 and states that she was told that pain was from endometriosis. Patient spoke with [facility] nurse blocker and cutter contact lens today and was advised to go to ER. A: She reports blood in toilet water and in the underwear. Abdominal pain is constant and rates pain 9/10. R: Patient advised to follow instructions directing her to ER, she verbalized understanding. No further needs at this time. Reason for Disposition [1] SEVERE pain (e.g., excruciating) AND [2] present > 1 hour Protocols used: Abdominal Pain - ADULT-[facility] 36on 12-12-2024 36 S: Patient spoke wit h [facility] nurse regarding abdominal and pelvic pain B: Onset of symptoms/concern ongoing A: Patient states she is having abdominal and pelvic cramping and she feels like she is on her period. It is a constant pain and not going away. Patient states she has been to the ER for this a few times up in [place] and they did a CT scan and told her everything was fine. Patient states she was told to follow up with [facility] due to her past surgical history. Patient states she has had a hysterectomy and ovaries removed then had a lot of cysts and had to have another surgery in 2020 because of that with Dr. Palacios. Patient states she has had pain for years but in the last month it has been getting worse. Rates pain as severe right now and states it is a constant cramping and feels like she is on her period. Only relief gets is heating pad and tylenol does not help at all. Has been getting the chills and has been feeling weak. Denies fevers, vaginal bleeding or vomiting. R: Patient advised to go to the ER as she has not seen Dr. Story since 03/08/21 and verbalized understanding. Patient will go to [facility]. Patient given care advice per protocol. Patient understands care advice. No further needs at this time. Patient instructed to call back with new or worsening symptoms. Reason for Disposition SEVERE pelvic pain and present > 1 hour Protocols used: Pelvic Pain - ADULT-[facility] CBC W Auto Differential pane l (Bld)on 12-12-2024 Basophils (Bld) [#/Vol] 0.1 10*3/uL 0.0 - 0.2 10*3/uL [facility] Basophils/100 WBC (Bld) 0.7 % 0.0 - 2.0 % [facility] Eosinophils (Bld) [#/Vol] 0.2 10*3/uL 0.0 - 0.5 10*3/uL [facility] Eosinophils/100 WBC (Bld) 2.3 % 0.0 - 6.0 % [facility] Erythrocyte distribution width (RBC) [Ratio] 13.3 % 11.5 - 15.0 % [facility] Hematocrit (Bld) [Volume fraction] 42.3 % 35.0 - 47.0 % [facility] Hemoglobin (Bld) [Mass/Vol] 14.3 g/dL 11.7 - 16.0 g/dL [facility] Immature granulocytes (Bld) [#/Vol] 0.1 10*3/uL High NINF - 0.1 10*3/uL [facility] Immature granulocytes/100 WBC (Bld) 1.6 % 0.0 - 2.0 % [facility] Interpretation and review of laboratory results Abnormal [facility] Lymphocytes (Bld) [#/Vol] 2.9 10*3/uL 1.0 - 4.3 10*3/uL [facility] Lymphocytes/100 WBC (Bld) 34.8 % 15.0 - 45.0 % [facility] MCH (RBC) [Entitic mass] 30.9 pg 26.0 - 34.0 pg [facility] MCHC (RBC) [Mass/Vol] 33.8 % 30.5 - 36.0 % [facility] MCV (RBC) [Entitic vol] 91.4 fL 77.0 - 99.0 fL [facility] Monocytes (Bld) [#/Vol] 0.5 10*3/uL 0.0 - 0.9 10*3/uL [facility] Monocytes/100 WBC (Bld) 6.4 % 5.0 - 13.0 % [facility] Neutrophils (Bld) [#/Vol] 4.5 10*3/uL 1.8 - 7.5 10*3/uL [facility] Neutrophils/100 WBC (Bld) 54.2 % 38.0 - 82.0 % [facility] Nucleated RBC/100 WBC (Bld) [Ratio] 0 % [facility] Platelet mean volume (Bld) [Entitic vol] 10.1 fL 9.0 - 12.7 fL [facility] Platelets (Bld) [#/Vol] 302 10*3/uL 140 - 440 10*3/uL [facility] RBC (Bld) [#/Vol] 4.63 10*6/uL 3.80 - 5.2 0 10*6/uL [facility] WBC (Bld) [#/Vol] 8.2 10*3/uL 3.6 - 10.7 10*3/uL [facility] CBC WITH AUTO DIFFERENTIALon 12-12-2024 Basophils (Bld) [#/Vol] 0.1 10*3/uL Normal 0.0-0.2 [facility] Comment on above: Performed By: #### L [id number] ####Business Account Manager: CANDELARIA FREITAS ([phone])[facility] (SBAB)[address] [place] [address] Basophils/100 WBC (Bld) 0.7 % Normal 0.0-2.0 [facility] Comment on above: Performed By: #### L [id number] ####Business Account Manager: CANDELARIA FREITAS ([phone])[facility]ITAL[facility]anna [facility] CENTERMALISSAN (SBHLAB)[address] [place] [address] Eosinophils (Bld) [#/Vol] 0.2 10*3/uL Normal 0.0-0.5 [facility] Comment on above: Performed By: #### L [id number] ####Business Account Manager: CANDELARIA FREITAS ([phone])[facility]ITAL[facility]anna [place] (SBHLAB)[address] [place] [address] Eosinophils/100 WBC (Bld) 2.3 % Normal 0.0-6.0 [facility] Comment on above: Performed By: #### L [id number] ####Business Account Manager: CANDELARIA FREITAS ([phone])[facility] [place] (SBHLAB)[address] [place] [address] Erythrocyte distribution width (RBC) [Ratio] 13.3 % Normal 11.5-15.0 [facility] Comment on above: Performed By: #### L [id number] ####Business Account Manager: CANDELARIA FREITAS ([phone])[facility] [place] (SBHLAB)[address] Hematocrit (Bld) [Volume fraction] 42.3 % Normal 35.0-47.0 [facility] Comment on above: Performed By: #### L [id number] ####Business Account Manager: CANDELARIA HOFFSARAH ([phone])[facility] (SBHLAB)[address] Hemoglobin (Bld) [Mass/Vol] 14.3 g/dL Normal 11.7-16.0 [facility] Comment on above: Performed By: #### L [id number] ####Business Account Manager: CANDELARIA FREITAS ([phone])[facility] ([facility] IMMATURE GRANS % 1.6 % Normal 0.0-2.0 [facility] Comment on above: Performed By: #### L [id number] ####Business Account Manager: CANDELARIA FREITAS ([phone])[facility] (SBAB)[address] IMMATURE GRANS ABSOLUTE 0.1 10*3/uL High <0.1 [facility] Comment on above: Performed By: #### L [id number] ####Business Account Manager: CANDELARIA FREITAS ([phone])[facility]A [facility] ([facility])[address] [place] [address] Lymphocytes (Bld) [#/Vol] 2.9 10*3/uL Normal 1.0-4.3 [facility] Comment on above: Performed By: #### L [id number] ####Business Account Manager: CANDELARIA FREITAS ([phone])[facility] [place] (SBHLAB)[address] [place] [address] [place] Lymphocytes/100 WBC (Bld) 34.8 % Normal 15.0-45.0 [facility] Comment on above: Performed By: #### L [id number] ####Business Account Manager: CANDELARIA FREITAS ([phone])[facility] (SBHLAB)[address] MCH (RBC) [Entitic mass] 30.9 pg Normal 26.0-34.0 [facility] Comment on above: Performed By: #### L [id number] ####Business Account Manager: CANDELARIA FREITAS ([phone])[facility] [place] (SBHLAB)[address] MCHC 33.8 % Normal 30.5-36.0 [facility] Comment on above: Performed By: #### L [id number] ####Business Account Manager: CANDELARIA FREITAS ([phone])[facility] [place] (SBHLAB)[address] MCV (RBC) [Entitic vol] 91.4 fL Normal 77.0-99.0 [facility] Comment on above: Performed By: #### L [id number] ####Business Account Manager: CANDELARIA FREITAS ([phone])[facility] [place] (SBHLAB)[address] Monocytes (Bld) [#/Vol] 0.5 10*3/uL Normal 0.0-0.9 [facility] Comment on above: Performed By: #### L [id number] ####Business Account Manager: CANDELARIA FREITAS ([phone])[facility] [place] (SBHLAB)[address] Monocytes/100 WBC (Bld) 6.4 % Normal 5.0-13.0 [facility] Comment on above: Performed By: #### L [id number] ####Business Account Manager: CANDELARIA FREITAS ([phone])[facility] [place] (SBHLAB)[address] NEUTROPHILS ABSOLUTE 4.5 10*3/uL Normal 1.8-7.5 [facility] Comment on above: Performed By: #### L [id number] ####Business Account Manager: CANDELARIA FREITAS ([phone])[facility] [place] (SBHLAB)[address] Neutrophils/100 WBC (Bld) 54.2 % Normal 38.0-82.0 [facility] Comment on above: Performed By: #### L [id number] ####Business Account Manager: CANDELARIA FREITAS ([phone])[facility] [place] (SBHLAB)[address] NRBC 0.0 /100 WBCs Normal 0.0-2.0 [facility] Comment on above: Performed By: #### L [id number] ####Business Account Manager: CANDELARIA FREITAS ([phone])[facility] [place] (SBHLAB)[address] Platelet mean volume (Bld) [Entitic vol] 10.1 fL Normal 9.0-12.7 [facility] Comment on above: Performed By: #### L [id number] ####Business Account Manager: CANDELARIA FREITAS ([phone])[facility] [place] (SBHLAB)[address] [place] [address] [place] Platelets (Bld) [#/Vol] 302 10*3/uL Normal 140-440 [facility] Comment on above: Performed By: #### L [id number] ####Business Account Manager: CANDELARIA FREITAS ([phone])[facility] [place] (SBHLAB)[address] RBC (Bld) [#/Vol] 4.63 10*6/uL Normal 3.80-5.20 [facility] Comment on above: Performed By: #### L [id number] ####Business Account Manager: CANDELARIA FREITAS ([phone])[facility] [place] (SBHLAB)[address] [place] [address] [place] WBC (Bld) [#/Vol] 8.2 10*3/uL Normal 3.6-10.7 [facility] Comment on above: Performed By: #### L [id number] ####Business Account Manager: CANDELARIA FREITAS ([phone])[facility] [place] (SBHLAB)[address] COMPLETE URINALYSISon 2024 BILIRUBIN, TOTAL PRESENCE IN URINE Negative Normal Negative [facility] Comment on above: Performed By: #### L [id number] ####Business Account Manager: CANDELARIA FREITAS ([phone])[facility] (SBHLAB)[address] Clarity (U) Clear Normal Clear [facility] Comment on above: Performed By: #### L [id number] ####Business Account Manager: CANDELARIA FREITAS ([phone])[facility] (SBHLAB)[address] Color (U) Light Yellow Normal Lt. Yellow [facility] Comment on above: Performed By: #### L [id number] ####Business Account Manager: CANDELARIA FREITAS ([phone])[facility] ([facility])[address] GLUCOSE (MG/DL) IN URINE Normal Normal Normal (<70) [facility] Comment on above: Performed By: #### L [id number] ####Business Account Manager: CANDELARIA FREITAS ([phone])[facility] ([facility])[address] HEMOGLOBIN PRESENCE IN URINE Negative Normal Negative [facility] Comment on above: Performed By: #### L [id number] ####Business Account Manager: CANDELARIA FREITAS ([phone])[facility] (HLAB)[address] Ketones Ql (U) Negative Normal Negative [facility] Comment on above: Performed By: #### L [id number] ####Business Account Manager: CANDELARIA FREITAS ([phone])[facility] ([facility])[address] LEUKOCYTE ESTERASE PRESENCE IN URINE BY TEST STRIP Negative Normal Negative [facility] Comment on above: Performed By: #### L [id number] ####Business Account Manager: CANDELARIA FREITAS ([phone])[facility] [place] (SBHLAB)[address] [place] [address] [place] NITRITE PRESENCE IN URINE Negative Normal Negative [facility] Comment on above: Performed By: #### L [id number] ####Business Account Manager: CANDELARIA FREITAS ([phone])[facility] [place] (SBHLAB)[address] pH (U) 5.5 [pH] Normal 5.0-8.0 [facility] Comment on above: Performed By: #### L [id number] ####Business Account Manager: CANDELARIA FREITAS ([phone])[facility] [place] (SBHLAB)[address] Protein (U) [Mass/Vol] Negative Normal Negative [facility] Comment on above: Performed By: #### L [id number] ####Business Account Manager: CANDELARIA FREITAS ([phone])[facility] (SBHLAB)[address] Specific gravity (U) [Rel density] 1.006 Normal 1.005-1.030 [facility] Comment on above: Performed By: #### L [id number] ####Business Account Manager: CANDELARIA FREITAS ([phone])[facility] [place] (SBHLAB)[address] UROBILINOGEN (MG/DL) IN URINE Normal Normal Normal (0-1) [facility] Comment on above: Performed By: #### L [id number] ####Business Account Manager: CANDELARIA FREITAS ([phone])[facility] (SB[facility])[address] COMPREHENSIVE METABOLIC PANE [place] 12-12-2024 Albumin [Mass/Vol] 4.4 g/dL Normal 3.5-5.0 [facility] Comment on above: Performed By: #### L AB99, LAB17 ####Business Account Manager: CANDELARIA FREITAS ([phone])[facility] [place] (SBHLAB)[address] ALP [Catalytic activity/Vol] 136 U/L Normal 40-150 [facility] Comment on above: Performed By: #### L AB99, LAB17 ####Business Account Manager: CANDELARIA FREITAS ([phone])[facility] [place] (SBHLAB)[address] ALT [Catalytic activity/Vol] 30 U/L High <30 [facility] Comment on above: Performed By: #### L AB99, LAB17 ####Business Account Manager: CANDELARIA FREITAS ([phone])[facility] [place] (SBHLAB)[address] Anion gap [Moles/Vol] 11 mmol/L Normal 3-13 [facility] Comment on above: Performed By: #### L ABJonny, LAB17 ####Business Account Manager: CANDELARIA FREITAS ([phone])[facility] [place] (SBHLAB)[address] AST [Catalytic activity/Vol] 23 U/L Normal <34 [facility] Comment on above: Performed By: #### L ABJonny, LAB17 ####Business Account Manager: CANDELARIA FREITAS ([phone])[facility] [place] (SBHLAB)[address] Bilirubin [Mass/Vol] 0.6 mg/dL Normal <1.2 [facility] Comment on above: Performed By: #### L AB99, LAB17 ####Business Account Manager: CANDELARIA FREITAS ([phone])[facility] [place] (SBHLAB)[address] [place] [address] [place] Calcium [Mass/Vol] 9.6 mg/dL Normal 8.4-10.2 [facility] Comment on above: Performed By: #### L AB99, LAB17 ####Business Account Manager: CANDELARIA FREITAS ([phone])[facility] [place] (SBHLAB)[address] [place] [address] [place] Chloride [Moles/Vol] 107 mmol/L Normal 98-107 [facility] Comment on above: Performed By: #### L AB99, LAB17 ####Business Account Manager: CANDELARIA FREITAS ([phone])[facility] (SBHLAB)[address] CO2 [Moles/Vol] 24 mmol/L Normal 22-29 [facility] Comment on above: Performed By: #### L AB99, LAB17 ####Business Account Manager: CANDELARIA FREITAS ([phone])[facility] (SBHLAB)[address] Creatinine [Mass/Vol] 1.00 mg/dL Normal 0.57-1.11 [facility] Comment on above: Performed By: #### L AB99, LAB17 ####Business Account Manager: CANDELARIA FREITAS ([phone])[facility] ([facility] GLOMERULAR FILTRATION RATE ML/MIN/1.73 SQ M.PREDICTED 70.9 mL/min/1.73m*2 Normal >60.0 [facility] Comment on above: Result Comment: Calc ulation based on the Chronic Kidney Disease Epidemiology Collaboration (CKD-EPI) equation refit without adjustment for race Performed By: #### L AB99, LAB17 ####Business Account Manager: CANDELARIA FREITAS ([phone])[facility] (HLAB)[address] Glucose [Mass/Vol] 85 mg/dL Normal 74-100 [facility] Comment on above: Performed By: #### L AB99, LAB17 ####Business Account Manager: CANDELARIA FREITAS ([phone])[facility] (HLAB)[address] [place] [address] [place] Potassium [Moles/Vol] 4.1 mmol/L Normal 3.5-5.1 [facility] Comment on above: Result Comment: [facility] potassium values may be up to 0.5 mmol/L lower than serum values. Performed By: #### L AB99, LAB17 ####Business Account Manager: CANDELARIA AYALACER ([phone])[facility]ITAL[facility] [place] (SBHLAB)[address] Protein [Mass/Vol] 8.3 g/dL Normal 6.4-8.3 [facility] Comment on above: Performed By: #### L AB99, LAB17 ####Business Account Manager: CANDELARIA FORTINO ([phone])[facility]ITAL[facility] (SBHLAB)[address] Sodium [Moles/Vol] 142 mmol/L Normal 136-145 [facility] Comment on above: Performed By: #### L AB99, LAB17 ####Business Account Manager: CANDELARIAELY FREITAS ([phone])[facility]ITAL[facility] [place] (SBHLAB)[address] Urea nitrogen [Mass/Vol] 9 mg/dL Normal 8-21 [facility] Comment on above: Performed By: #### L AB99, LAB17 ####Business Account Manager: CANDELARIA FORTINO ([phone])[facility]ITAL[facility] (SBHLAB)[address] ABDOMEN PELVIS WO IV CONT [facility] 12-12-2024 CT ABDOMEN PELVIS WO IV CONTRAST [facility] 1980 [id number] Exam Date/Time: 12/12/2024 15:30 Procedure: CT ABDOMEN PELVIS WO IV CONTRAST Ordering Provider: KEVIN MADISON Reason For Exam: acute on chronic generalized abdominal pain, hx renal stones, eval for stones EXAM: CT Abdomen and Pelvis Without Intravenous Contrast CLINICAL INDICATION: acute on chronic generalized abdominal pain, hx renal stones, eval for stones TECHNIQUE: Axial computed tomography images of the abdomen and pelvis without intravenous contrast. This CT exam was performed using one or more of the following dose reduction techniques: automated exposure control, adjustment of the mA and/or kV according to patient size, and/or use of iterative reconstruction technique. COMPARISON: 10/09/2015 FINDINGS: LUNG BASES: Unremarkable. No mass. No consolidation. ABDOMEN: LIVER: The liver is diffusely hypoattenuating consistent with diffuse hepatic steatosis. Multiple liver cysts are present. GALLBLADDER AND BILE DUCTS: Status post cholecystectomy. No ductal dilation. PANCREAS: Unremarkable. No ductal dilation. SPLEEN: Unremarkable. No splenomegaly. ADRENALS: Unremarkable. No mass. KIDNEYS AND URETERS: There are two punctate left renal calculi are present. No hydroureteronephrosis. STOMACH AND BOWEL: Unremarkable. No obstruction. No mucosal thickening. PELVIS: APPENDIX: The appendix is not identified, however there is no pericecal fat stranding. BLADDER: Unremarkable. No stones. REPRODUCTIVE: Status post hysterectomy. ABDOMEN and PELVIS: INTRAPERITONEAL SPACE: Unremarkable. No free air. No significant fluid collection. BONES/JOINTS: No acute fracture. VASCULATURE: Unremarkable. No abdominal aortic aneurysm. LYMPH NODES: Unremarkable. No enlarged lymph nodes. IMPRESSION: 1. Punctate nonobstructive left renal calculi. 2. Hepatic steatosis. Report Dictated on Electronically Signed By: Juaquin Raya MD Electronically Signed Date/Time: 12/12/2024 4:39 PM EDT Fever, chills, nausea, bilateral flank pain. Hx stones Normal [facility] CT Abdomen and Pelvis WO con traston 12-12-2024 1. Punctate nonobstructive left renal calculi. 2. Hepatic steatosis. Report Dictated on Electronically Signed By: Juaquin Raya MD Electronically Signed Date/Time: 12/12/2024 4:39 PM EDT [facility] Patient Name: SALLY BALLARD : 1980 [facility]#: [id number] Exam Date/Time: 12/12/2024 15:30 Procedure: CT ABDOMEN PELVIS WO IV CONTRAST Ordering Provider: KEVIN MADISON Reason For Exam: acute on chronic generalized abdominal pain, hx renal stones, eval for stones EXAM: CT Abdomen and Pelvis Without Intravenous Contrast CLINICAL INDICATION: acute on chronic generalized abdominal pain, hx renal stones, eval for stones TECHNIQUE: Axial computed tomography images of the abdomen and pelvis without intravenous contrast. This CT exam was performed using one or more of the following dose reduction techniques: automated exposure control, adjustment of the mA and/or kV according to patient size, and/or use of iterative reconstruction technique. COMPARISON: 10/09/2015 FINDINGS: LUNG BASES: Unremarkable. No mass. No consolidation. ABDOMEN: LIVER: The liver is diffusely hypoattenuating consistent with diffuse hepatic steatosis. Multiple liver cysts are present. GALLBLADDER AND BILE DUCTS: Status post cholecystectomy. No ductal dilation. PANCREAS: Unremarkable. No ductal dilation. SPLEEN: Unremarkable. No splenomegaly. ADRENALS: Unremarkable. No mass. KIDNEYS AND URETERS: There are two punctate left renal calculi are present. No hydroureteronephrosis. STOMACH AND BOWEL: Unremarkable. No obstruction. No mucosal thickening. PELVIS: APPENDIX: The appendix is not identified, however there is no pericecal fat stranding. BLADDER: Unremarkable. No stones. REPRODUCTIVE: Status post hysterectomy. ABDOMEN and PELVIS: INTRAPERITONEAL SPACE: Unremarkable. No free air. No significant fluid collection. BONES/JOINTS: No acute fracture. VASCULATURE: Unremarkable. No abdominal aortic aneurysm. LYMPH NODES: Unremarkable. No enlarged lymph nodes. [facility] Juaquin Raya MD - 12/12/2024 [facility]AS [facility] 1980 [id number] Exam Date/Time: 12/12/2024 15:30 Procedure: CT ABDOMEN PELVIS WO IV CONTRAST Ordering Provider: KEVIN MADISON Reason For Exam: acute on chronic generalized abdominal pain, hx renal stones, eval for stones EXAM: CT Abdomen and Pelvis Without Intravenous Contrast CLINICAL INDICATION: acute on chronic generalized abdominal pain, hx renal stones, eval for stones TECHNIQUE: Axial computed tomography images of the abdomen and pelvis without intravenous contrast. This CT exam was performed using one or more of the following dose reduction techniques: automated exposure control, adjustment of the mA and/or kV according to patient size, and/or use of iterative reconstruction technique. COMPARISON: 10/09/2015 FINDINGS: LUNG BASES: Unremarkable. No mass. No consolidation. ABDOMEN: LIVER: The liver is diffusely hypoattenuating consistent with diffuse hepatic steatosis. Multiple liver cysts are present. GALLBLADDER AND BILE DUCTS: Status post cholecystectomy. No ductal dilation. PANCREAS: Unremarkable. No ductal dilation. SPLEEN: Unremarkable. No splenomegaly. ADRENALS: Unremarkable. No mass. KIDNEYS AND URETERS: There are two punctate left renal calculi are present. No hydroureteronephrosis. STOMACH AND BOWEL: Unremarkable. No obstruction. No mucosal thickening. PELVIS: APPENDIX: The appendix is not identified, however there is no pericecal fat stranding. BLADDER: Unremarkable. No stones. REPRODUCTIVE: Status post hysterectomy. ABDOMEN and PELVIS: INTRAPERITONEAL SPACE: Unremarkable. No free air. No significant fluid collection. BONES/JOINTS: No acute fracture. VASCULATURE: Unremarkable. No abdominal aortic aneurysm. LYMPH NODES: Unremarkable. No enlarged lymph nodes. IMPRESSION: 1. Punctate nonobstructive left renal calculi. 2. Hepatic steatosis. Report Dictated on Electronically Signed By: Juaquin Raya MD Electronically Signed Date/Time: 12/12/2024 4:39 PM EDT [facility] Radiology Study observation (narrative) [facility] [employer] CT Abdomen and Pelvis WO con trastOrdered By: Juaquin Raya on 12-12-2024 [facility] [employer] Work Phone: Comprehensive metabolic 1998 panelon 12-12-2024 Albumin [Mass/Vol] 4.4 g/dL 3.5 - 5.0 g/dL [facility] [employer] ALP [Catalytic activity/Vol] 136 U/L 40 - 150 U/L [facility] ALT [Catalytic activity/Vol] 30 U/L High NINF - 30 U/L [facility] Anion gap [Moles/Vol] 11 mmol/L 3 - 13 mmol/L [facility] AST [Catalytic activity/Vol] 23 U/L NINF - 34 U/L [facility] [employer] Bilirubin [Mass/Vol] 0.6 mg/dL [facility]F - 1.2 mg/dL [facility] [employer] Calcium [Mass/Vol] 9.6 mg/dL 8.4 - 10. 2 mg/dL [facility] [employer] Chloride [Moles/Vol] 107 mmol/L 98 - 10 7 mmol/L [facility] CO2 [Moles/Vol] 24 mmol/L 22 - 29 mmol/L [facility] [employer] Creatinine [Mass/Vol] 1 mg/dL 0.57 - 1.11 mg/dL [facility] [employer] GFR/1.73 sq M.predicted (S/P/Bld) [Vol rate/Area] 70.9 mL/min - PINF [facility] Comment on above: Calculation based on the Chronic Kidney Disease Epidemiology Collaboration (CKD-EPI) equation refit without adjustment for race Glucose [Mass/Vol] 85 mg/dL 74 - 100 mg/dL [facility] Interpretation and review of laboratory results Abnormal [facility] Potassium [Moles/Vol] 4.1 mmol/L 3.5 - 5.1 mmol/L [facility] Comment on above: Plasma potassium rc ues may be up to 0.5 mmol/L lower than serum values. Protein [Mass/Vol] 8.3 g/dL 6.4 - 8.3 g/dL [facility] Sodium [Moles/Vol] 142 mmol/L 136 - 145 mmol/L [facility] Urea nitrogen [Mass/Vol] 9 mg/dL 8 - 21 mg/dL [facility] ED Provider Noteon ED Provider Note EMERGENCY DEPARTMENT ENCOUNTER Pt Name: Sally Vargas Birthdate 1980 Date of evaluation: 12/12/2024 ED Provider: Fay Kevin PA-C CHIEF COMPLAINT Chief Complaint Patient presents with Abdominal Pain Nausea Pt arrives from home for nausea and abdominal pain over the last few days. Pt states she called her PCP and was told to come to ER . Pt endorses fever, chills at home, pain 9/10 in triage HISTORY OF PRESENT ILLNESS (Location/Symptom, Timing/Onset, Context/Setting, Quality, Duration, Modifying Factors, Severity) Note limiting factors. I wore appropriate PPE for the entirety of this encounter. HPI Sally Vargas is a 44 y.o. female with who presents to the emergency department for evaluation of abdominal/pelvic pain. According to the patient she has a history of some type of gynecologic cancer, and is status post total hysterectomy, and bilateral salpingo-oophorectomy. Has had multiple surgeries for diagnosis and treatment of endometriosis, with history of adhesions. States over the last couple of months, she has been dealing with ongoing abdominal/pelvic pain. Has been seen for this, most recently around 2 weeks ago at [place] and had a negative CT at that time. States this most recent flare of abdominal pain has been ongoing for the last couple of days with associated nausea. No actual episodes of emesis. No fevers, but does endorse chills. No dysuria, hematuria, urgency, or frequency, but does have history of renal stones. 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 Still passing gas and having bowel movements. Has not appreciated a blood in her stool. No concern for STD exposure, and is not currently having any vaginal discharge or bleeding. Has not yet taken anything for pain. States she does also have history of pancreatitis, but denies any drug or alcohol use. No recent changes in her medications. States last time she got a CT scan with IV contrast it made her skin burn. Nursing Notes were reviewed. Limitations to history: None Outside historians: None REVIEW OF SYSTEMS Review of Systems 14 systems reviewed, positives and pertinent negatives as per HPI. All other systems were reviewed and are negative. PAST MEDICAL HISTORY Past Medical History: Diagnosis Date Cancer (CMS/HCC) Chicken pox High cholesterol History of blood transfusion 2006 Kidney stones Right ureteral calculus 09/05/2019 SURGICAL HISTORY Past Surgical History: Procedure Laterality Date CHOLECYSTECTOMY CYSTOSCOPY 09/05/2019 cystoscopy, bilateral retrograde pyelograms, right ureteroscopy EXPLORATORY LAPAROTOMY Laparotomy RSO EXPLORATORY LAPAROTOMY 12/02/2016 exp lap, extensive lysis of adhesions, left ureterlysis and excision of left pelvic sidewall HYSTERECTOMY LAPAROSCOPY DIAGNOSTIC / BIOPSY / ASPIRATION / LYSIS LIVER SURGERY 2019 removed cyst URETEROSCOPY Right 09/05/2019 C&P ( normal bilat). Right ureteroscopy-negative ( passessed stones). [place] CURRENT MEDICATIONS Discharge Medication List as of 12/12/2024 4:55 PM CONTINUE these medications which have NOT CHANGED Details estradiol (Estrace) 0.5 MG tablet TAKE 1 TABLET BY MOUTH EVERY DAY, Starting 06/06/2023, Normal PARoxetine (Paxil) 10 MG tablet TAKE 1 TABLET (10 MG) BY MOUTH DAILY., Starting 06/06/2023, Normal ALLERGIES Iodinated contrast media, Nsaids, Penicillins, and Toradol [ketorolac tromethamine] FAMILY HISTORY Family History Problem Relation Name Age of Onset Other (01094) Mother blood clots Hyperlipidemia Mother High Blood Pressure Mother SOCIAL HISTORY Social History Socioeconomic History Marital status: Tobacco Use Smoking status: Every Day Current packs/day: 0.50 Types: Cigarettes Smokeless tobacco: Never Substance and Sexual Activity Alcohol use: Yes Alcohol/week: 0.0 standard drinks of alcohol Drug use: Never Social Drivers of Health Financial Resource Strain: Patient Declined (12/14/2023) Received from [facility] Overall Financial Resource Strain (CARDIA) Difficulty of Paying Living Expenses: Patient declined Food Insecurity: Patient Declined (12/14/2023) Received from [facility] Hunger Vital Sign Worried About Running Out of Food in the Last Year: Patient declined Ran Out of Food in the Last Year: Patient declined Transportation Needs: Patient Declined (12/14/2023) Received from [facility] PRAPARE - Transportation Lack of Transportation (Medical): Patient declined Lack of Transportation (Non-Medical): Patient declined Physical Activity: Patient Declined (12/14/2023) Received from [facility] Exercise Vital Sign Days of Exercise per Week: Patient declined Minutes of Exercise per Session: Patient declined Stress: No Stress Concern Pr (more content not included)... Normal [facility] LIPASEon 12-12-2024 Lipase [Catalytic activity/Vol] 28 U/L Normal <55 [facility] Comment on above: Performed By: #### L [id number], [id number] ####Business Account Manager: CANDELARIA FREIATS ([phone])[facility] ([facility])[address] [place] [address] Laboratory - Chemistry and C hemistry - challengeon 12-12-2024 Lipase [Catalytic activity/Vol] 28 U/L NINF - 55 U/L [facility] Lipase [Catalytic activity/V ol]on 12-12-2024 Interpretation and review of laboratory results Normal [facility] No Panel Informationon 12-12 [facility] US PELVIS TRANSVAGINALon US PELVIS TRANSVAGINAL [facility]ILLO [facility] 1980 [id number] Exam Date/Time: 12/12/2024 15:55 Procedure: US PELVIS TRANSVAGINAL Ordering Provider: KEVIN MADISON Reason For Exam: s/p hyst, bl oophorectomy, pelvic cramping, eval EXAM: US Pelvis Transvaginal CLINICAL INDICATION: s/p hyst, bl oophorectomy, pelvic cramping, eval TECHNIQUE: Real-time transvaginal pelvic ultrasound with image documentation. Transvaginal imaging was used for better evaluation of the endometrium and adnexa. COMPARISON: CT abdomen pelvis from 12/12/2024 FINDINGS: UTERUS/CERVIX: Status post hysterectomy. RIGHT OVARY: Right ovary is surgically absent. LEFT OVARY: Left ovary is surgically absent. FREE FLUID: No free fluid. BLADDER: Incompletely distended bladder, which cannot be optimally evaluated with this probe. No appreciable bladder filling defect. IMPRESSION: Status post hysterectomy and bilateral oophorectomies. No acute pelvic abnormality is identified. Report Dictated on Electronically Signed By: Barb Sanders MD Electronically Signed Date/Time: 12/12/2024 4:40 PM EDT [facility] US Pelvis transvaginalon Status post hysterec altagracia and bilateral oophorectomies. No acute pelvic abnormality is identified. Report Dictated on Electronically Signed By: Barb Sanders MD Electronically Signed Date/Time: 12/12/2024 4:40 PM EDT [facility] Patient Name: SALLY BALLARD : 1980 Exam Date/Time: 12/12/2024 15:55 Procedure: US PELVIS TRANSVAGINAL Ordering Provider: KEVIN MADISON Reason For Exam: s/p hyst, bl oophorectomy, pelvic cramping, eval EXAM: US Pelvis Transvaginal CLINICAL INDICATION: s/p hyst, bl oophorectomy, pelvic cramping, eval TECHNIQUE: Real-time transvaginal pelvic ultrasound with image documentation. Transvaginal imaging was used for better evaluation of the endometrium and adnexa. COMPARISON: CT abdomen pelvis from 12/12/2024 FINDINGS: UTERUS/CERVIX: Status post hysterectomy. RIGHT OVARY: Right ovary is surgically absent. LEFT OVARY: Left ovary is surgically absent. FREE FLUID: No free fluid. BLADDER: Incompletely distended bladder, which cannot be optimally evaluated with this probe. No appreciable bladder filling defect. [facility] Barb Sanders M D - 12/12/2024 Patient Name: SALLY VARGAS : 1980 Exam Date/Time: 12/12/2024 15:55 Procedure: US PELVIS TRANSVAGINAL Ordering Provider: KEVIN MADISON Reason For Exam: s/p hyst, bl oophorectomy, pelvic cramping, eval EXAM: US Pelvis Transvaginal CLINICAL INDICATION: s/p hyst, bl oophorectomy, pelvic cramping, eval TECHNIQUE: Real-time transvaginal pelvic ultrasound with image documentation. Transvaginal imaging was used for better evaluation of the endometrium and adnexa. COMPARISON: CT abdomen pelvis from 12/12/2024 FINDINGS: UTERUS/CERVIX: Status post hysterectomy. RIGHT OVARY: Right ovary is surgically absent. LEFT OVARY: Left ovary is surgically absent. FREE FLUID: No free fluid. BLADDER: Incompletely distended bladder, which cannot be optimally evaluated with this probe. No appreciable bladder filling defect. IMPRESSION: Status post hysterectomy and bilateral oophorectomies. No acute pelvic abnormality is identified. Report Dictated on Electronically Signed By: Barb Sanders MD Electronically Signed Date/Time: 12/12/2024 4:40 PM EDT [facility] Radiology Study observation (narrative) [facility] US Pelvis transvaginalOrdere d By: Barb Sanders on 12-12-2024 [facility] Work Phone: Urinalysis complete panel (U )on 12-12-2024 Bilirubin Ql (U) Negative Negative mg/dL [facility] Clarity (U) Clear Clear [facility] Color (U) Light Yellow Lt. Yellow [facility] Glucose Ql (U) Normal Normal (<70) mg/dL [facility] Hemoglobin Ql (U) Negative Negative mg/dL [facility] Interpretation and review of laboratory results Normal [facility] Ketones (U) [Mass/Vol] Negative Negat melecio mg/dL [facility] Leukocyte esterase Test strip Ql (U) Negative Negative Ezra/uL [facility] Nitrite Ql (U) Negative Negative [facility] pH (U) 5.5 [pH] 5.0 - 8.0 pH [facility] Protein (U) [Mass/Vol] Negative Negat melecio mg/dL [facility] Specific gravity (U) [Rel density] 1.006 1.005 - 1.030 [facility] Urobilinogen (U) [Mass/Vol] Normal Normal (0-1) mg/dL [facility] CNPNon 12-09-2024 CNPN Telephone (VIVI) -------- SALLY VARGAS ([id number]) 1980 F Date Time Provider Department 12/09/24 ABI GALICIA During your visit today, we recorded the following information about you: Abi Galicia, MARITA 12/09/2024 10:21 AM Signed Sw spoke with patient in regards to medication cost issue. Patient also notes that she needs help with clearance to see medical providers. Sw noted patient has My Chart message from VANCE Saini. Patient reports that she cannot remember her password to My Chart. Sw noted [employer] phone number for patient to reach out to her regarding HCAP. Patient also notes that sneha has been turned down 2x for disability. Patient notes that she has appealed and been denied. Patient reports currently working for [employer]. No longer has her Medicaid due to this. Patient notes that she has reapplied for Medicaid, needs to submit documents to finalize her Medicaid application with S. This Sw mentioned checking with [employer] for help with medication cost needs. Patient states I do not go to [employer]. This Sw will review patient medication listing and call patient back next week with any patient assistance program options Abi Galicia, NET DEVELOPMENT MANAGER 12/13/2024 10:42 AM Signed Scott reviewed patient medication list. Patient medications show up on Rx Outreach. There is a cost to medications on Rx Outreach. Sw can let patient know this information. Abi Galicia MSW 12/13/2024 12:36 PM Signed Scott called and left patient message in regards to follow up on discussion of medication cost issue. Scott will send patient My Chart message with patient assistance info. Allergies As of Date: 12/09/2024 Noted Allergy Reaction ASPIRIN 05/26/2019 16 - Unknown PENICILLINS 12/07/2009 2 - Rash CEPHALEXIN 10/20/2019 9 - Itching CHLORHEXIDINE 10/29/2016 2 - Rash Comments: Skin rash CIPROFLOXACIN 01/19/2024 2 - Rash Comments: Unclear if the pruritic areas of rash were related to medication or not, no prior use IODINATED CONTRAST MEDIA 02/09/2023 10 - Anaphylaxis TORADOL (KETOROLAC) 05/25/2020 2 - Rash ASA (SALICYLATES) 01/27/2011 14 - Other: See Comments Comments: ulcers CONTRAST DYE (IODINE) 05/17/2008 12 - Shortness of Breath DICYCLOMINE 04/01/2023 4 - Hives IBUPROFEN 06/18/2016 8 - GI Upset Date Reviewed: 12/07/2024 Reviewed by: Nancy Arrieta LPN - Fully Assessed Prescriptions as of 12/13/2024 - topiramate (TOPAMAX) 25 mg tablet Take 1 tablet by mouth two times a day. - colestipol (COLESTID) 1 gram tablet Take 1 tablet by mouth two times a day. - benzocaine-menthol (CEPACOL) 15-3.6 mg lozg Use 1 Lozenge as instructed every 2 hours as needed. - promethazine (PHENERGAN) 25 mg tablet Take 1 tablet by mouth every 8 hours as needed for nausea/vomiting. - LORazepam (ATIVAN) 0.5 mg Take 1 tablet by mouth once daily as needed. [facility] - escitalopram oxalate (LEXAPRO) 20 mg tablet Take 1 tablet by mouth once daily. [facility]. - ARIPiprazole (ABILIFY) 10 mg tablet Take 1 tablet by mouth once daily. [facility]. - pantoprazole DR (PROTONIX) 40 mg tablet Take 1 tablet by mouth daily before breakfast. Take on empty stomach, 1/2 hr before meal. - sodium chloride (SALINE NASAL) 0.65 % nasal spray Use 1 [place] in the nose as needed. - gabapentin (NEURONTIN) 400 mg capsule Take 1 capsule by mouth every 12 hours for 90 days. - etodolac (LODINE) 400 mg tablet Take 1 tablet by mouth two times a day as needed. - albuterol HFA (VENTOLIN HFA) 90 mcg/actuation inhaler Inhale 2 Puffs as instructed every 4 hours as needed for wheezing/shortness of breath. - Cholecalciferol, Vitamin D3, 50 mcg (2,000 unit) cap Take 1 capsule by mouth once daily. - SUMAtriptan (IMITREX STATDOSE PEN) 6 mg/0.5 mL pen Inject 0.5 mL subcutaneously as needed for migraine headache (see administration instructions). May repeat dose after 1 hour if needed. Maximum daily dose is 12 mg per day. - diphenhydrAMINE (BENADRYL) 25 mg capsule Take 50 mg by mouth at bedtime as needed. Problem List As Of Date 12/09/2024 Noted Resolved Routine gynecological examination [Z01.419] 05/17/2008 02/16/2023 Class: Chronic Family history of diabetes mellitus [Z83.3] 05/17/2008 10/27/2024 Calculus of kidney [N20.0] 05/17/2008 Allergic rhinitis, cause unspecified [J30.9] 05/17/2008 Migraine without aura [G43.009] 05/17/2008 Cigarette smoker [F17.210] 05/17/2008 Impaired fasting glucose [R73.01] 05/17/2008 12/01/2023 Benign liver cyst [K76.89] 05/24/2010 10/27/2024 Class: Chronic Ovarian cyst [N83.209] 07/15/2012 10/27/2024 Generalized anxiety disorder [F41.1] 03/31/2016 Reactive depression [F32.9] 03/31/2016 Adjustment insomnia [F51.02] 03/31/2016 Encounter for screening for cardiovascular diso*03/31/2016 02/16/2023 Bilateral low back pain without sciatica [M54.5 (more content not included)... Normal [facility] CNOVon 12-07-2024 CNOV Office Visit (INTMWS ) -------- SALLY VARGAS ([id number]) 1980 F Date Time Provider Department 12/07/24 10:20 AM SILVERIO HALEY INTMWS During your visit today, we recorded the following information about you: Pulse Respiration Blood pressure Weight 80/minute 16/minute 146/86 95.5 kg Silverio Haley MD 12/16/2024 1:32 AM Signed This note was created using [employer]. Subjective Sally Vargas is a 44 year old female. Patient presents with: Discussion: Would like to talk about disability and a handicap alex Zavala is a 44-year-old female with a history of chronic pain, migraines, and multiple psychiatric diagnoses, presenting for a check-up and assistance with disability application. Sally has been attempting to obtain disability benefits for 8 years due to chronic pain and frequent hospitalizations for migraines, which have made it difficult for her to maintain employment. She has had two hearings and multiple appeals, all of which have been denied. She reports that her health has been deteriorating, and she is experiencing significant pain in her knee, for which she was supposed to see an orthopedist but has been unable to do so due to lack of insurance. She is currently trying to get back on her insurance but has been having difficulty with the process. Sally also reports severe abdominal pain, nausea, and vomiting, which have prevented her from eating for the past 2 weeks. She has lost a significant amount of weight, dropping from 215 lbs to 209 lbs in 2-3 weeks. She has been to the ER twice in the past week for these issues and was prescribed Phenergan for nausea. She reports that eating or drinking anything, including water, exacerbates her pain, which she describes as sharp and burning. She has tried various diets, including the BRAT diet and protein shakes, but nothing has alleviated her symptoms. She also reports infrequent bowel movements, sometimes going up to a month without one, and when she does have a bowel movement, it is usually diarrhea with dark green stool and occasional blood. Sally has a history of migraines, which have improved with Topamax. She also has a history of anxiety, depression, bipolar disorder, PTSD, and dyslexia. She was previously seeing a psychiatrist but is currently waiting for a new one. She reports that her previous psychiatrist prescribed multiple medications that were not effective. She was hospitalized for 5 days in 2020 for mental health issues. 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 She is seeking assistance with reapplying for disability benefits and obtaining a parking placard due to her physical limitations. She also expresses frustration with her current healthcare providers and is seeking a new paint supervisor. SUBJECTIVE: PAST MEDICAL HISTORY Diagnosis Date Allergic rhinitis, cause unspecified 05/17/2008spring and summer Benign liver cyst 05/24/2010 CT scan at [facility] 11/2009 and 04/2010 showe 4 mm increase in size. No pain. No elevated LFTs on 03/11/2010. Calculus of kidney 05/17/[address] Nicolas: Hospitalized age 20, and again later -- no procedures so far ([facility], [address] [facility]) Cancer (HCC) Chronic pain syndrome 06/06/2020 COVID-19 virus infection 10/07/202109/2021 Diverticulosis Dysmenorrhea Functional abdominal pain syndrome 06/25/2021 Functional vomiting 06/25/2021 Hemorrhoids History of blood transfusion Hydronephrosis of left kidney 02/05/2017 Hydroureter on left 02/05/2017 Impaired fasting glucose 05/17/2008 Sugar 104 fasting, 04/21 Intractable nausea and vomiting 05/25/2020 Marijuana use 07/10/2020 ER visit 07/06/2020, [place] MIGRAINE 05/17/2008 Has used imitrex with good response; Keeps Vicodin on hand when needed; Open wound of left breast 01/19/2023 Ovarian cyst 07/15/2012 Pancreatitis Smoker 05/17/2008 Started age 26, 1/2 a PPD Current Outpatient Medications Medication Sig topiramate (TOPAMAX) 25 mg tablet Take 1 tablet by mouth two times a day. colestipol (COLESTID) 1 gram tablet Take 1 tablet by mouth two times a day. benzocaine-menthol (CEPACOL) 15-3.6 mg lozg Use 1 Lozenge as instructed every 2 hours as needed. promethazine (PHENERGAN) 25 mg tablet Take 1 tablet by mouth every 8 hours as needed for nausea/vomiting. LORazepam (ATIVAN) 0.5 mg Take 1 tablet by mouth once daily as needed. From [facility]. escitalopram oxalate (LEXAPRO) 20 mg tablet Take 1 tablet by mouth once daily. [facility]. ARIPiprazole (ABILIFY) 10 mg tablet Take 1 tablet by mouth once daily. [facility]. pantoprazole DR (PROTONIX) 40 mg tablet Take 1 tablet by mouth daily before breakfast. Take on empty stomach, 1/2 hr before meal. sodium chlo (more content not included)... Normal [facility] .Auto Diffon 12-05-2024 Basophil, Absolute 0.1 10 3/mcL Normal 0.0-0.2 [facility] Comment on above: Performed By: #### U A UAMICAO #### [address] [address] Basophils/100 WBC (Bld) 0.9 % Normal 0.0-2.5 [facility] Comment on above: Performed By: #### U A UAMICAO #### [address] [address] Eosinophil, Absolute 0.1 10 3/mcL Normal 0.0-0.7 [facility] Comment on above: Performed By: #### U A UAMICAO #### [address] [address] Eosinophils/100 WBC (Bld) 1.9 % Normal 0.0-7.0 [facility] Comment on above: Performed By: #### U A UAMICAO #### [address] [address] Lymphocyte, Absolute 2.5 10 3/mcL Normal 0.9-4.3 [facility] Comment on above: Performed By: #### U A UAMICAO #### [address] [address] Lymphocytes/100 WBC (Bld) 35.9 % Normal 20.0-40.0 [facility] Comment on above: Performed By: #### U A, UAMICAO #### [address] [address] Monocyte, Absolute 0.4 10 3/mcL Normal 0.1-1.4 [facility] Comment on above: Performed By: #### U Hanna UAMICAO #### [address] [address] Monocytes/100 WBC (Bld) 5.7 % Normal 2.0-13.0 [facility] Comment on above: Performed By: #### U A UAMICAO #### [address] [address] Neutrophils/100 WBC (Bld) 55.6 % Normal 50.0-75.0 [facility] Comment on above: Performed By: #### GUSTAVO FloresMICAO #### [address] [address] .GFRon 12-05-2024 Estimated Glomerular Filtration Rate 70 ml/min/1.73sqm Normal [facility] Comment on above: Result Comment: Stages of Chronic Kidney Disease (CKD) Stage Description eGFR(ml/min/1.73 sq.m.) CKD 1 Normal kidney function or >=90 normal kindney function with possible kidney damage (ex. Proteinuria) CKD 2 Kidney damage with mild loss 60-89 of kidney function CKD 3a Mild to moderate loss of kidney 45-59 function CKD 3b Moderate to severe loss of 30-44 of kindey function CKD 4 Severe loss of kidney function 15-29 CKD 5 Kidney failure <15 Note: (go live 2024) the eGFR calculation was updated to the 2020 CKD-EPI creatinine equation without a race factor to calculate the eGFR results. Performed By: #### C BC, LETICIA, ANEU, MDW, LIP, GFR, CMP #### [address] [address] .MDWon 12-05-2024 Monocyte Distribution Width 18.42 Normal 0.00-20.00 [facility] Comment on above: Result Comment: For ED adult patients suspected of sepsis, MDW<=20.0 does not rule out sepsis or risk of sepsis Performed By: #### C BC, LETICIA, ANEU, MDW, LIP, GFR, CMP #### [address] [address] .NEUABSon 12-05-2024 Neutrophil, Absolute 3.8 10 3/mcL Normal 2.3-8.1 [facility] Comment on above: Performed By: #### U Hanna UAMICAO #### [place] [address] .Urinalysis Microscopic (AO) on 12-05-2024 UA Bacteria Trace Abnormal [facility] Comment on above: Performed By: #### U Hanna UAMICAO #### [place] [address] UA RBC 0-5 Abnormal None Seen [facility] Comment on above: Performed By: #### U Hanna UAMICAO #### [place] [address] UA Squam Epithelial LOADED Abnormal None Seen [facility] Comment on above: Performed By: #### U Hanna UAMICAO #### [place] [address] UA WBC 5-10 Abnormal None Seen [facility] Comment on above: Performed By: #### Sandrine Ferreira UAMICAO #### [place] [address] CBCon 12-05-2024 Erythrocyte distribution width (RBC) [Ratio] 14.0 % Normal 11.5-15.5 [facility] Comment on above: Performed By: #### U Hanna UAMICAO #### [place] [address] Hematocrit (Bld) [Volume fraction] 41.4 % Normal 34.0-46.0 [facility] Comment on above: Performed By: #### U A UAMICAO #### [place] [address] Hgb 14.0 G/dL Normal 12.0-16.0 [facility] Comment on above: Performed By: #### U A UAMICAO #### [place] [address] MCH (RBC) [Entitic mass] 30.2 pg Normal 27.0-33.0 [facility] Comment on above: Performed By: #### ANN MARIE Flores #### [address] [address] MCHC 33.8 G/dL Normal 32.0-36.0 [facility] Comment on above: Performed By: #### ANN MARIE Flores #### [address] [address] MCV (RBC) [Entitic vol] 89.3 fL Normal 80.0-99.0 [facility] Comment on above: Performed By: #### ANN MARIE Flores #### [address] [address] Platelet 271 10 3/mcL Normal 150-450 [facility] Comment on above: Performed By: #### ANN MARIE Flores #### [address] [address] Platelet mean volume (Bld) [Entitic vol] 7.9 fL Normal 6.6-10.5 [facility] Comment on above: Performed By: #### ANN MARIE Flores #### [address] [address] RBC 4.63 10 6/mcL Normal 4.10-5.30 [facility] Comment on above: Performed By: #### ANN MARIE Flores #### [address] [address] WBC 6.9 10 3/mcL Normal 4.5-10.8 [facility] Comment on above: Performed By: #### Sandrine Ferreira UAMICAO #### [address] [address] CMPon 12-05-2024 Albumin Level 4.2 G/dL Normal 3.5-5.0 [facility] Comment on above: Performed By: #### C BC, ADIFF, ANEU, MDW, LIP, GFR, CMP #### [address] [address] Albumin/Globulin [Mass ratio] 1.1 {ratio} Normal 1.1-2.5 [facility] Comment on above: Performed By: #### C LETICIA DELUCA ANEU, MDW, LIP, GFR, CMP #### [address] [address] ALP [Catalytic activity/Vol] 159 U/L High 40-135 [facility] Comment on above: Performed By: #### C LETICIA DELUCA ANEU, MDW, LIP, GFR, CMP #### [place] [address] ALT [Catalytic activity/Vol] 31 U/L Normal 14-59 [facility] Comment on above: Performed By: #### C LETICAI DELUCA ANEU, MDW, LIP, GFR, CMP #### [place] [address] AST [Catalytic activity/Vol] 15 U/L Normal 10-40 [facility] Comment on above: Performed By: #### C LETICIA DELUCA ANEU, MDW, LIP, GFR, CMP #### [place] [address] Bili Total 0.8 mg/dL Normal 0.2-1.0 [facility] Comment on above: Result Comment: Use of this assay is not recommended for patients undergoing treatment with eltrombopag due to the potential for falsely elevated results. Performed By: #### C LETICIA DELUCA ANEU, MDW, LIP, GFR, CMP #### [place] [address] BUN/Creatinine Ratio 8 ratio Normal 7-27 [facility] Comment on above: Performed By: #### C LETICIA DELUCA ANEU, MDW, LIP, GFR, CMP #### [place] [address] Calcium [Mass/Vol] 9.6 mg/dL Normal 8.4-10.2 [facility] Comment on above: Performed By: #### C LETICIA DELUCA ANEU, MDW, LIP, GFR, CMP #### [address] [address] Chloride [Moles/Vol] 102 mmol/L Normal 98-107 [facility] Comment on above: Performed By: #### C LETICIA DELUCA ANEU, MDW, LIP, GFR, CMP #### [address] [address] CO2 [Moles/Vol] 28 mmol/L Normal 22-29 [facility] Comment on above: Performed By: #### C LETICIA DELUCA ANEU, MDW, LIP, GFR, CMP #### [place] [address] Creatinine [Mass/Vol] 1.01 mg/dL Normal 0.55-1.02 [facility] Comment on above: Result Comment: Test ing performed on Siemens Dimension EXL analyzer using a modified kinetic Eleuterio technique. Performed By: #### C LETICIA DELUCA ANEU, MDW, LIP, GFR, CMP #### [place] [id number] Electrolyte Balance 7.0 mEq/L Normal 4.0-15.0 [facility] Comment on above: Performed By: #### C LETICIA DELUCA ANEU, MDW, LIP, GFR, CMP #### [address] [address] Globulin 3.8 G/dL Normal 1.5-3.8 [facility] Comment on above: Performed By: #### C LETICIA DELUCA ANEU, MDW, LIP, GFR, CMP #### [place] [address] Glucose [Mass/Vol] 115 mg/dL High 70-105 [facility] Comment on above: Performed By: #### C LETICIA DELUCA ANEU, MDW, LIP, GFR, CMP #### [address] [address] Potassium [Moles/Vol] 4.0 mmol/L Normal 3.5-5.1 [facility] Comment on above: Performed By: #### C LETICIA DELUCA ANEU, MDW, LIP, GFR, CMP #### [address] [address] Sodium [Moles/Vol] 137 mmol/L Normal 136-145 [facility] Comment on above: Performed By: #### C SANDRINE, VANESA KELLY, W, LIP, GFR, CMP #### [address] [address] Total Protein 8.0 G/dL Normal 6.4-8.2 [facility] Comment on above: Performed By: #### C SANDRINE, VANESA KELLY MDW, LIP, GFR, CMP #### [place] [address] Urea nitrogen [Mass/Vol] 8 mg/dL Normal 7-18 [facility] Comment on above: Performed By: #### C SANDRINE, VANESA KELLY MDW, LIP, GFR, CMP #### [address] [address] LIPon 12-05-2024 Lipase Level 39 U/L Normal 16-77 [facility] Comment on above: Performed By: #### C LETICIA DELUCA ANEU, MDW, LIP, GFR, CMP #### [address] [address] PREGUon 12-05-2024 HCG ( test) Ql (U) Negative [facility] Comment on above: Performed By: #### Sandrine Ferreira UAMICAO #### [address] [address] test (u) int Not detected Invalid Interpretation Code [facility] Comment on above: Performed By: #### U Hanna UAMICAO #### [address] [address] UAon 12-05-2024 Color (U) Yellow Normal [facility] Comment on above: Performed By: #### U Hanna UAMICAO #### [address] [address] Glucose (U) [Mass/Vol] Negative Normal Negative [facility] Comment on above: Performed By: #### U A, UAMICAO #### [place] [address] Ketones Ql (U) Negative Normal Negative [facility] Comment on above: Performed By: #### U A, UAMICAO #### [place] [address] UA Appear Clear Normal Clear [facility] Comment on above: Performed By: #### U A, UAMICAO #### [place] [address] UA Blood Trace Abnormal Negative [facility] Comment on above: Performed By: #### U A, UAMICAO #### [place] [address] UA Leuk Est Trace Abnormal Negative [facility] Comment on above: Performed By: #### U A, UAMICAO #### [place] [address] UA Nitrite Negative Normal Negative [facility] Comment on above: Performed By: #### U A, UAMICAO #### [place] [address] UA pH 6.5 Normal 5.0 - 8.0 [facility] Comment on above: Performed By: #### U A, UAMICAO #### [place] [address] UA Protein Negative Normal Negative [facility] Comment on above: Performed By: #### U A, UAMICAO #### [place] [address] UA Spec Grav 1.015 Normal 1.015-1.025 [facility] Comment on above: Performed By: #### U A, UAMICAO #### [place] [address] UA Specimen Type Clean Catch Normal [facility] Comment on above: Performed By: #### U A, UAMICAO #### [address] [address] UA Urobilinogen 0.2 E.U./dL Normal 0.2-1.0 [facility] Comment on above: Performed By: #### U Hanna UAMICAO #### [address] [address] Urobilinogen (U) [Mass/Vol] Negative Normal Negative [facility] Comment on above: Performed By: #### U ANN MARIE Ferreira #### [address] [address] Gastroenterology Visit Repor ton 12-02-2024 Gastroenterology Visit Report Normal [facility] .Auto Diffon 11-30-2024 Basophil, Absolute 0.2 10 3/mcL Normal 0.0-0.2 [facility] Comment on above: Performed By: #### C SANDRINE, VANESA KELLY, W, LIP, GFR, CMP #### [address] [address] Basophils/100 WBC (Bld) 1.3 % Normal 0.0-2.5 [facility] Comment on above: Performed By: #### C LETICIA DELUCA ANEU, MDW, LIP, GFR, CMP #### [address] [address] Eosinophil, Absolute 0.2 10 3/mcL Normal 0.0-0.7 [facility] Comment on above: Performed By: #### C LETICIA DELUCA ANEU, MDW, LIP, GFR, CMP #### [address] [address] Eosinophils/100 WBC (Bld) 1.8 % Normal 0.0-7.0 [facility] Comment on above: Performed By: #### C SANDRINE, VANESA KELLY, MDW, LIP, GFR, CMP #### [address] [address] Lymphocyte, Absolute 4.3 10 3/mcL Normal 0.9-4.3 [facility] Comment on above: Performed By: #### C BC, ADIFF, ANEU, MDW, LIP, GFR, CMP #### [address] [address] Lymphocytes/100 WBC (Bld) 31.6 % Normal 20.0-40.0 [facility] Comment on above: Performed By: #### C BC, ADIFF, ANEU, MDW, LIP, GFR, CMP #### [address] [address] Monocyte, Absolute 0.6 10 3/mcL Normal 0.1-1.4 [facility] Comment on above: Performed By: #### C BC, ADIFF, ANEU, MDW, LIP, GFR, CMP #### [address] [address] Monocytes/100 WBC (Bld) 4.5 % Normal 2.0-13.0 [facility] Comment on above: Performed By: #### C BC, ADIFF, ANEU, MDW, LIP, GFR, CMP #### [address] [address] Neutrophils/100 WBC (Bld) 60.8 % Normal 50.0-75.0 [facility] Comment on above: Performed By: #### C BC, ADIFF, ANEU, MDW, LIP, GFR, CMP #### [address]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 [address] [place], [address] ALK PHOS 143 U/L High 35-104 [facility] Comment on above: Performed By: #### L 100.0100, L500.4050 ####[facility] [address] [place], [address] ALT [Catalytic activity/Vol] 22 U/L Normal <=34 [facility] Comment on above: Performed By: #### L 100.0100, L500.4050 ####[facility] [address] [place], [address] AST [Catalytic activity/Vol] 18 U/L Normal <=31 [facility] Comment on above: Performed By: #### L 100.0100, L500.4050 ####[facility] [address] [place], [address] Bilirubin [Mass/Vol] 0.31 mg/dL Normal 0.00-1.30 [facility] Comment on above: Performed By: #### L 100.0100, L500.4050 ####[facility] [address] [place], [address] BUN/CRE 11.7 RATIO Normal 10-20 [facility] Comment on above: Performed By: #### L 100.0100, L500.4050 ####[facility] [address] [place], [address] Calcium [Mass/Vol] 9.4 mg/dL Normal 7.6-11.0 [facility] Comment on above: Performed By: #### L 100.0100, L500.4050 ####[facility] [address] [place], [address] Chloride [Moles/Vol] 103 mmol/L Normal 98-108 [facility] Comment on above: Performed By: #### L 100.0100, L500.4050 ####[facility] [address] [place], [address] CO2 [Moles/Vol] 23.8 mmol/L Normal 21.0-32.0 [facility] Comment on above: Performed By: #### L 100.0100, L500.4050 ####[facility] [address] [place], [address] Creatinine [Mass/Vol] 1.00 mg/dL Normal 0.70-1.20 [facility] Comment on above: Performed By: #### L 100.0100, L500.4050 ####[facility] [address] [place], [address] ECRCL 74.65 ml/min Normal 50-250 [facility] Comment on above: Performed By: #### L 100.0100, L500.4050 ####[facility] [address] [place], [address] GAP 12 Normal 5-15 [facility] Comment on above: Performed By: #### L 100.0100, L500.4050 ####[facility] [address] [place], [address] GFR/1.73 sq M.predicted among non-blacks MDRD (S/P/Bld) [Vol rate/Area] 71 mL/min/{1.73_m2} Normal >60 [facility] Comment on above: Result Comment: mL/m in/1.73m2 CKD-EPI Creatinine Equation (2020) Performed By: #### L 100.0100, L500.4050 ####[facility] [address] [place], [address] Globulin (S) [Mass/Vol] 3.5 g/dL Normal 2.2-4.2 [facility] Comment on above: Performed By: #### L 100.0100, L500.4050 ####[facility] [address] [place], [address] Glucose [Mass/Vol] 95 mg/dL Normal 70-99 [facility] Comment on above: Performed By: #### L 100.0100, L500.4050 ####[facility] [address] [place], [address] Potassium [Moles/Vol] 4.0 mmol/L Normal 3.3-5.1 [facility] Comment on above: Performed By: #### L 100.0100, L500.4050 ####[facility] [address] [place], [address] Sodium [Moles/Vol] 140 mmol/L Normal 133-145 [facility] Comment on above: Performed By: #### L 100.0100, L500.4050 ####[facility] [address] [place], [address] T PROT 8.0 g/dL Normal 5.9-8.4 [facility] Comment on above: Performed By: #### L 100.0100, L500.4050 ####[facility] [address] [place], [address] Urea nitrogen [Mass/Vol] 12 mg/dL Normal 4-19 [facility] Comment on above: Performed By: #### L 100.0100, L500.4050 ####[facility] [address] [place], [address] Emergency Department Summary on 11-17-2024 Emergency Department Summary Normal [facility] Eosinophil percentageOrdered By: ED PROVIDER on 11-17-2024 Eosinophils/100 WBC (Bld) 1.0 % 0-5 [facility] Epithelial cells.squamous LM Ql (Urine sed)Ordered By: ED PROVIDER on 11-17-2024 Epithelial cells.squamous LM.HPF (Urine sed) [#/Area] 0 /[HPF] 5-10 [facility] Erythrocyte distribution wid th ratioOrdered By: ED PROVIDER on 11-17-2024 Erythrocyte distribution width (RBC) [Ratio] 13.2 % 11.6-14.6 [facility] Erythrocyte distribution wid th standard deviationOrdered By: ED PROVIDER on 11-17-2024 Erythrocyte distribution width (RBC) [Entitic vol] 43.5 fL 35.1-43.9 [facility] Estimation of creatinine linda aranceOrdered By: Chance Botello on 11-17-2024 Estimated Creatinine Clearance Calc 74.65 ml/min 50-250 [facility] GFR/1.73 sq M.predicted miroslava g non-blacks MDRD (S/P/Bld) [Vol rate/Area]Ordered By: Chance Botello on 11-17-2024 Estimated GFR (MDRD) Non-Af Amer 71 >60 [facility] Comment on above: mL/min/1.73m2 CKD-EP I Creatinine Equation (2020) Glucose Ql (U)Ordered By: ED PROVIDER on 11-17-2024 Urine Glucose (UA) Normal mg/dl Normal [facility] Hematocrit Auto (Bld) [Volum e fraction]Ordered By: ED PROVIDER on 11-17-2024 Hematocrit (Bld) [Volume fraction] 39.8 % 37-47 [facility] Hemoglobin measurementOrdere d By: ED PROVIDER on 11-17-2024 Hemoglobin (Bld) [Mass/Vol] 13.2 g/dL 12.0-15.0 [facility] Immature granulocytes/100 WB C Auto (Bld)Ordered By: ED PROVIDER on 11-17-2024 Immature granulocytes/100 WBC (Bld) 1.000 % High 0.0-0.9 [facility] Comment on above: IG% - Immature Granu locytes (promyelocytes, myelocytes and metamyelocytes) > 1% indicates that a LEFT SHIFT is Present. Ketones Test strip Ql (U)Ord ered By: ED PROVIDER on 11-17-2024 Ketones Ql (U) Negative Negative [facility] Laboratory - Chemistry and C hemistry - challengeOrdered By: Chance Botello on 11-17-2024 AST [Catalytic activity/Vol] 18 U/L <32 [facility] Lymphocytes Auto (Unsp spec) [#/Vol]Ordered By: ED PROVIDER on 11-17-2024 Lymphocytes (Bld) [#/Vol] 3.78 10*3/uL 0.83-4.51 [facility] Lymphocytes/100 WBC Auto (Un sp spec)Ordered By: ED PROVIDER on 11-17-2024 Lymphocytes/100 WBC (Bld) 32.0 % 19-41 [facility] MCV (mean corpuscular volume ) determinationOrdered By: ED PROVIDER on 11-17-2024 MCV (RBC) [Entitic vol] 90.5 fL 81-99 [facility] Mean corpuscular hemoglobin (MCH) determinationOrdered By: ED PROVIDER on 11-17-2024 MCH (RBC) [Entitic mass] 30.0 pg 27.0-32.0 [facility] Mean corpuscular hemoglobin concentration (MCHC) determinationOrdered By: ED PROVIDER on 11-17-2024 MCHC (RBC) [Mass/Vol] 33.2 g/dL 32-36 [facility] Mean platelet volume determi nationOrdered By: ED PROVIDER on 11-17-2024 Platelet mean volume (Bld) [Entitic vol] 9.8 fL 6.2-12.0 [facility] Microscopic analysis of urin e for red blood cells (RBC)Ordered By: ED PROVIDER on 11-17-2024 Urine RBC 0-5 SEEN /hpf 0-5 [facility] Monocyte percentageOrdered B y: ED PROVIDER on 11-17-2024 Monocytes/100 WBC (Bld) 4.8 % 0-10 [facility] Mucus LM Ql (Urine sed)Order ed By: ED PROVIDER on 11-17-2024 Mucus Ql (Urine sed) 0 SEEN /hpf [facility] Neutrophil percentageOrdered By: ED PROVIDER on 11-17-2024 Neutrophils/100 WBC (Bld) 60.6 % 47-70 [facility] Nitrite Test strip Ql (U)Ord ered By: ED PROVIDER on 11-17-2024 Nitrite Ql (U) Negative Negative [facility] Nucleated red blood cell per centageOrdered By: ED PROVIDER on 11-17-2024 Nucleated RBC/100 WBC (Bld) [Ratio] 0 % 0-5 [facility] Platelet countOrdered By: ED PROVIDER on 11-17-2024 Platelets (Bld) [#/Vol] 292 10*3/uL 150-450 [facility] Potassium (Unsp spec) [Mass/ Vol]Ordered By: Chance Botello on 11-17-2024 Potassium [Moles/Vol] 4.0 mmol/L 3.3-5.1 [facility] Protein Test strip Ql (U)Ord ered By: ED PROVIDER on 11-17-2024 Protein Ql (U) Negative Negative [facility] RBC Auto (Bld) [#/Vol]Ordere d By: ED PROVIDER on 11-17-2024 RBC (Bld) [#/Vol] 4.40 10*6/uL 4.2-5.4 [facility] Serum creatinine measurement (mass/volume)Ordered By: Chance Botello on 11-17-2024 Creatinine [Mass/Vol] 1.00 mg/dL 0.70-1.20 [facility] Serum globulin measurementOr dered By: Chance Botello on 11-17-2024 Globulin (S) [Mass/Vol] 3.5 g/dL 2.2-4.2 [facility] Serum glucose measurement (m ass/volume)Ordered By: Chance Botello on 11-17-2024 Glucose [Mass/Vol] 95 mg/dL 70-99 [facility] Serum or plasma alanine umanzor otransferase (ALT) measurementOrdered By: Chance Botello on 11-17-2024 ALT [Catalytic activity/Vol] 22 U/L <35 [facility] Serum or plasma albumin shelley urement (mass/volume)Ordered By: Chance Botello on 11-17-2024 Albumin [Mass/Vol] 4.5 g/dL 3.5-5.0 [facility] Serum or plasma albumin/glob ulin mass ratioOrdered By: Chance Botello on 11-17-2024 Albumin/Globulin [Mass ratio] 1.3 {ratio} 0.9-2.4 [facility] Serum or plasma alkaline omero sphatase measurementOrdered By: Chance Botello on 11-17-2024 ALP [Catalytic activity/Vol] 143 U/L High 35-104 [facility] Serum or plasma calcium shelley urement (mass/volume)Ordered By: Chance Botello on 11-17-2024 Calcium [Mass/Vol] 9.4 mg/dL 7.6-11.0 [facility] Serum or plasma urea nitroge n measurement (mass/volume)Ordered By: Chance Botello on 11-17-2024 Urea nitrogen [Mass/Vol] 12 mg/dL 4-19 [facility] Sodium levelOrdered By: Vivi Botello on 11-17-2024 Sodium [Moles/Vol] 140 mmol/L 133-145 [facility] Total proteinOrdered By: Johnathon Botello on 11-17-2024 Protein [Mass/Vol] 8.0 g/dL 5.9-8.4 [facility] Urinalysis, Completeon 11-17 EPI,SQUAMOUS 0-5 SEEN Normal 5-10 [facility] Comment on above: Order Comment: CLEAN CATCH Performed By: #### L 400.0001 ####[facility] [address] [place], [address] RBC 0-5 SEEN Normal 0-5 [facility] Comment on above: Order Comment: CLEAN CATCH Performed By: #### L 400.0001 ####[facility] [address] [place], [address] BACTERIA 0 SEEN Normal None Seen [facility] Comment on above: Order Comment: CLEAN CATCH Performed By: #### L 400.0001 ####[facility] [address] [place], [address] Mucus Ql (Urine sed) 0 SEEN Normal [facility] Comment on above: Order Comment: CLEAN CATCH Performed By: #### L 400.0001 ####[facility] [address] [place], [place], [address] WBC 0 SEEN Normal 0-5 [facility] Comment on above: Order Comment: CLEAN CATCH Performed By: #### L 400.0001 ####[facility] [address] [place], [address] Urine blood detectionOrdered By: ED PROVIDER on 11-17-2024 Urine Occult Blood 10 /ul High Negative [facility] Urine clarityOrdered By: ED PROVIDER on 11-17-2024 Clarity (U) Sl. Cloudy Clear [facility] Urine color determinationOrd ered By: ED PROVIDER on 11-17-2024 Color (U) Yellow Yellow [facility] Urine leukocyte esterase det ection by dipstickOrdered By: ED PROVIDER on 11-17-2024 Leukocyte esterase Test strip Ql (U) Negative Negative [facility] Urine pHOrdered By: ED PROVI ASHLEY on 11-17-2024 pH (U) 7.0 [pH] 5.0 - 8.0 [facility] Urine sediment bacteria coun t by microscopy (number/high power field)Ordered By: ED PROVIDER on 11-17-2024 Bacteria LM.HPF (Urine sed) [#/Area] 0 /[HPF] None Seen [facility] Urine specific gravity measu rementOrdered By: ED PROVIDER on 11-17-2024 Specific gravity (U) [Rel density] 1.010 1.002-1.030 [facility] Urobilinogen Ql (U)Ordered B y: ED PROVIDER on 11-17-2024 Urine Urobilinogen Normal mg/dl Normal [facility] White blood cell (WBC) count Ordered By: ED PROVIDER on 11-17-2024 WBC (Bld) [#/Vol] 11.8 10*3/uL High 4.4-11.0 [facility] White blood cell countOrdere d By: ED PROVIDER on 11-17-2024 Urine WBC 0 SEEN /hpf 0-5 [facility] CNPNon 11-16-2024 CNPN Telephone (INTWS) -------- SALLY VARGAS ([id number]) 1980 F Date Time Provider Department 11/16/24 SILVERIO HALEY INTTOÑITO During your visit today, we recorded the following information about you: Nunu Carcamo, RN 11/16/2024 2:59 PM Signed Pt reports Dr. Hernandez put her on topiramate 25 mg twice a day for her headaches. Reports for the last 2 days her left leg has been shaking and it won't stop. Pt has tried stretching, it doesn't make it stop. Pt reports even when she walks on the treadmill it shakes. Reports it's constant and the only time she doesn't notice it is when she sleeps. Pt reports the only new medication she takes is topiramate. Asking pcp if this medication could cause this shaking? Reports she even went to the ER last night b/c she thought she had kidney stones- but she didn't- it ended up being constipation. Reports the ER didn't know what would cause her leg to shake either. Renetta Hernández RN 11/17/2024 1:24 PM Signed Appt made for patient for today for evaluation. Renetta Hernández RN Allergies As of Date: 11/16/2024 Noted Allergy Reaction ASPIRIN 05/26/2019 16 - Unknown PENICILLINS 12/07/2009 2 - Rash CEPHALEXIN 10/20/2019 9 - Itching CHLORHEXIDINE 10/29/2016 2 - Rash Comments: Skin rash CIPROFLOXACIN 01/19/2024 2 - Rash Comments: Unclear if the pruritic areas of rash were related to medication or not, no prior use IODINATED CONTRAST MEDIA 02/09/2023 10 - Anaphylaxis TORADOL (KETOROLAC) 05/25/2020 2 - Rash ASA (SALICYLATES) 01/27/2011 14 - Other: See Comments Comments: ulcers CONTRAST DYE (IODINE) 05/17/2008 12 - Shortness of Breath DICYCLOMINE 04/01/2023 4 - Hives IBUPROFEN 06/18/2016 8 - GI Upset Date Reviewed: 11/04/2024 Reviewed by: Marcelino 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 - Fully Assessed Reason for Visit: Patient Question [1477] Prescriptions as of 11/17/2024 - benzocaine-menthol (CEPACOL) 15-3.6 mg lozg Use 1 Lozenge as instructed every 2 hours as needed. - promethazine (PHENERGAN) 25 mg tablet Take 1 tablet by mouth every 8 hours as needed for nausea/vomiting. - topiramate (TOPAMAX) 25 mg tablet Take 1 tablet by mouth two times a day. - traZODone (DESYREL) 50 mg tablet Take 1 tablet by mouth daily at bedtime. [facility] - LORazepam (ATIVAN) 0.5 mg Take 1 tablet by mouth once daily as needed. [facility]. - escitalopram oxalate (LEXAPRO) 20 mg tablet Take 1 tablet by mouth once daily. [facility]. - ARIPiprazole (ABILIFY) 10 mg tablet Take 1 tablet by mouth once daily. [facility]. - pantoprazole DR (PROTONIX) 40 mg tablet Take 1 tablet by mouth daily before breakfast. Take on empty stomach, 1/2 hr before meal. - sodium chloride (SALINE NASAL) 0.65 % nasal spray Use 1 [place] in the nose as needed. - gabapentin (NEURONTIN) 400 mg capsule Take 1 capsule by mouth every 12 hours for 90 days. - etodolac (LODINE) 400 mg tablet Take 1 tablet by mouth two times a day as needed. - albuterol HFA (VENTOLIN HFA) 90 mcg/actuation inhaler Inhale 2 Puffs as instructed every 4 hours as needed for wheezing/shortness of breath. - Cholecalciferol, Vitamin D3, 50 mcg (2,000 unit) cap Take 1 capsule by mouth once daily. - SUMAtriptan (IMITREX STATDOSE PEN) 6 mg/0.5 mL pen Inject 0.5 mL subcutaneously as needed for migraine headache (see administration instructions). May repeat dose after 1 hour if needed. Maximum daily dose is 12 mg per day. - diphenhydrAMINE (BENADRYL) 25 mg capsule Take 50 mg by mouth at bedtime as needed. 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] 05/24/2010 10/27/2024 Class: Chronic Ovarian cyst [N83.209] 07/15/2012 10/27/2024 Generalized anxiety disorder [F41.1] 03/31/2016 Reactive depression [F32.9] 03/31/2016 Adjustment insomnia [F51.02] 03/31/2016 Encounter for screening for cardiovascular diso*03/31/2016 02/16/2023 Bilateral low back pain without sciatica [M54.5*06/18/2016 Pain in left hip [M25.552] 06/18/2016 10/27/2024 Greater trochanteric bursitis [M70.60] 06/18/2016 10/27/2024 Hydronephrosis of left kidney [N13.30] 02/05/2017 10/27/2024 Hydroureter on left [N13.4] 02/05/2017 10/27/2024 Right facial numbness [R20.0] 02/23/2017 10/27/2024 Right upper extremity numbness [R20.0] 02/23/2017 10/27/2024 Numbness of right lower extremity [R20.0] 02/23/2017 10/27/2024 Weakness of right upper extremity [R29.898] 02/23/2017 10/27/2024 Weakness of right lower extremity [R (more content not included)... Normal [facility] ED MED ADMINISTRATION DETAIL on 11-16-2024 ED MED ADMINISTRATION DETAIL Normal [facility] ED NURSES CLINICAL NOTEon ED NURSES CLINICAL NOTE Normal [facility] ED ORDER SHEET (CPOE ONLY)on 11-16-2024 ED ORDER SHEET (CPOE ONLY) Normal [facility] ED PHYSICIAN CLINICAL REPORT on 11-16-2024 ED PHYSICIAN CLINICAL REPORT Normal [facility] ED PHYSICIAN DISCHARGE REPOR Ton 11-16-2024 ED PHYSICIAN DISCHARGE REPORT Normal [facility] ED SUPER BILLon 11-16-2024 ED SUPER BILL Normal [facility] ED VISIT SUMMARYon ED VISIT SUMMARY Normal [facility] ED VITALS FLOW SHEETon 11-16 ED VITALS FLOW SHEET Normal [facility] CBC + DIFFon 11-15-2024 Baso # 0.05 x10EE3/UL Normal 0.00 - 0.10 [facility] Comment on above: Performed By: #### 2 [id number] ####[facility],[address] [place] [address] 76130 Basophils/100 WBC (Bld) 0.4 % Normal 0.0 - 2.0 [facility] Comment on above: Performed By: #### 2 79556 ####[facility],[address] [place] [address] 95539 CBC + DIFF Normal [facility] Comment on above: Result Comment: CBC- COMPLETE BLOOD COUNT Performed By: #### 2 41475 ####[facility],[address] [place] [address] 38408 EO # 0.22 x10EE3/UL Normal 0.00 - 0.50 [facility] Comment on above: Performed By: #### 2 79596 ####[facility],[address] [place] [address] 50690 Eosinophils/100 WBC (Bld) 2.0 % Normal 0.0 - 7.0 [facility] Comment on above: Performed By: #### 2 86514 ####[facility],[address] [place] [address] 25303 Erythrocyte distribution width (RBC) [Ratio] 13.5 % Normal 12.0 - 15.6 [facility] Comment on above: Performed By: #### 2 79821 ####[facility],[address] [place] [address] 93891 Hematocrit (Bld) [Volume fraction] 41.3 % Normal 34.0 - 46.0 [facility] Comment on above: Performed By: #### 2 47258 ####[facility],[address] [place] [address] Hemoglobin (Bld) [Mass/Vol] 14.4 g/dL Normal 12.0 - 16.0 [facility] Comment on above: Performed By: #### 2 36530 ####[facility],[address] [place] [address] Lymph # 3.39 x10EE3/UL High 0.80 - 2.80 [facility] Comment on above: Performed By: #### 2 31047 ####[facility],[address] [place], [place] [address] Lymphocytes/100 WBC (Bld) 30.7 % Normal 20.0 - 45.0 [facility] Comment on above: Performed By: #### 2 90766 ####[facility],[address] [place], [place] [address] MANUAL DIFF N/A Normal [facility] Comment on above: Performed By: #### 2 98966 ####[facility],[address] [place], [place] [id number] MCH (RBC) [Entitic mass] 31 pg Normal 27 - 33 [facility] Comment on above: Performed By: #### 2 73375 ####[facility],[address] [place] [address] 83028 MCHC 35 X10 3 Normal 32 - 36 [facility] Comment on above: Performed By: #### 2 49114 ####[facility],[address] [place] [address] 66269 MCV (RBC) [Entitic vol] 89 fL Normal 80 - 99 [facility] Comment on above: Performed By: #### 2 52962 ####[facility],[address] [place] [address] 76214 [place] # 0.48 x10EE3/UL Normal 0.20 - 1.00 [facility] Comment on above: Performed By: #### 2 95294 ####[facility],[address] [place] [address] 02206 MONOS % 4.3 % Normal 0.0 - 10.0 [facility] Comment on above: Performed By: #### 2 90623 ####[facility],[address] [place] [address] 06986 Morphology Adrian (Bld) [Interp] N/A Normal [facility] Comment on above: Performed By: #### 2 28124 ####[facility],[address] [place] [address] 44349 Neut # 6.91 x10EE3/UL Normal 1.50 - 7.10 [facility] Comment on above: Performed By: #### 2 37893 ####[facility],[address] [place] [address] 92268 Neutrophils/100 WBC (Bld) 62.6 % Normal 46.0 - 76.0 [facility] Comment on above: Performed By: #### 2 20557 ####[facility],[address] [place] [address] 32850 PLATELET 324 x10EE3/UL Normal 150 - 450 [facility] Comment on above: Performed By: #### 2 42581 ####[facility],[address] [place] [address] 20123 Platelet mean volume (Bld) [Entitic vol] 8.4 fL Normal 6.6 - 10.5 [facility] Comment on above: Result Comment: AUTO MATED DIFFERENTIAL Performed By: #### 2 67350 ####[facility],[address] [place] [address] 31971 RBC 4.64 x 10EE6/UL Normal 4.10 - 5.30 [facility] Comment on above: Performed By: #### 2 63931 ####[facility],[address] [place] [address] 25380 WBC 11.1 x 10EE3/UL High 4.5 - 10.8 [facility] Comment on above: Performed By: #### 2 29349 ####[facility],[address] [place] [address] 28502 CMP with eGFRon 11-15-2024 AGE 44 years Normal [facility] Comment on above: Performed By: #### 2 74267 ####[facility],[address] [place] [address] 16865 Albumin [Mass/Vol] 4.4 g/dL Normal 3.4 - 5.0 [facility] Comment on above: Performed By: #### 2 50146 ####[facility],[address] [place], [place] [address] Albumin/Globulin [Mass ratio] 1.0 {ratio} Normal 0.9 - 1.6 [facility] Comment on above: Performed By: #### 2 00481 ####[facility],[address] [place] [address] 08597 ALK PHOS 155 U/L High 46 - 116 [facility] Comment on above: Performed By: #### 2 69881 ####[facility],[address] [place] [address] 61424 ALT [Catalytic activity/Vol] 32 U/L Normal 16 - 63 [facility] Comment on above: Performed By: #### 2 90849 ####[facility],[address] [place] [address] 98141 Anion gap [Moles/Vol] 12 mmol/L Normal 10 - 20 [facility] Comment on above: Performed By: #### 2 22139 ####[facility],[address] [place] [address] 72351 AST [Catalytic activity/Vol] 16 U/L Normal 13 - 39 [facility] Comment on above: Performed By: #### 2 80085 ####[facility],[address] [place] [address] B/C RATIO 8 ratio Normal 0 - 30 [facility] Comment on above: Performed By: #### 2 91015 ####[facility],[address] [place], [place] [address] Bilirubin [Mass/Vol] 0.3 mg/dL Normal 0.2 - 1.0 [facility] Comment on above: Performed By: #### 2 47447 ####[facility],[address] [place] [address] Calcium [Mass/Vol] 9.5 mg/dL Normal 8.5 - 10.1 [facility] Comment on above: Performed By: #### 2 46685 ####[facility],[address] [place] [address] Chloride [Moles/Vol] 105 mmol/L Normal 98 - 107 [facility] Comment on above: Performed By: #### 2 57244 ####[facility],[address] [place] [address] CMP with eGFR Normal [facility] Comment on above: Result Comment: COMP REHENSIVE METABOLIC PANEL Performed By: #### 2 28041 ####[facility],[address] [place] [address] 59625 CO2 [Moles/Vol] 25.0 mmol/L Normal 21.0 - 32.0 [facility] Comment on above: Performed By: #### 2 32738 ####[facility],[address] [place] [address] 72996 Creatinine [Mass/Vol] 1.10 mg/dL High 0.55 - 1.02 [facility] Comment on above: Performed By: #### 2 44306 ####[facility],[address] [place] [address] eGFR 54 ML/MINUTE Low 60 - 999 [facility] Comment on above: Performed By: #### 2 00105 ####[facility],[address] [place] [address] 38517 GFR/1.73 sq M.predicted among non-blacks MDRD (S/P/Bld) [Vol rate/Area] mL/min/{1.73_m2} Normal 60 - 999 [facility] Comment on above: Result Comment: ACCO RDING TO THE NATIONAL KIDNEY DISEASE EDUCATION PROGRAM(NKDE), A NORMAL eGFRIS A VALUE GREATER THAN OR EQUAL TO 60 ML/MIN/1.73 SQ METERS.CHRONIC KIDNEY DISEASE: <60mL/MIN/1.73 SQ METERSKIDNEY FAILURE: <15mL/MIN/1.73 SQ METERSTHIS TEST SHOULD ONLY BE USED FOR PATIENTS 18 YEARS OF AGE AND OLDER. Performed By: #### 2 93620 ####[address] [address] Globulin (S) [Mass/Vol] 4.2 g/dL High 1.5 - 3.8 [facility] Comment on above: Performed By: #### 2 12256 ####[address] [address] Glucose [Mass/Vol] 107 mg/dL High 74 - 106 [facility] Comment on above: Performed By: #### 2 07799 ####[address] [address] Potassium [Moles/Vol] 3.4 mmol/L Low 3.5 - 5.1 [facility] Comment on above: Performed By: #### 2 41731 ####[address] [address] Protein [Mass/Vol] 8.6 g/dL High 6.4 - 8.2 [facility] Comment on above: Performed By: #### 2 61117 ####[address] [address] Sodium [Moles/Vol] 139 mmol/L Normal 136 - 145 [facility] Comment on above: Performed By: #### 2 40661 ####[facility],[address] [place] [address] Urea nitrogen [Mass/Vol] 9 mg/dL Normal 7 - 18 [facility] Comment on above: Performed By: #### 2 95390 ####[facility],[address] [place] [address] CT ABDOMEN/PELVIS Won 2024 CT ABDOMEN/PELVIS W Normal [facility] LIPASEon 11-15-2024 Lipase [Catalytic activity/Vol] 66.0 U/L Normal 15.0 - 78.0 [facility] Comment on above: Result Comment: *PLE ASE NOTE THAT RANGES FOR LIPASE HAVE CHANGED OF 09/11/23 DUE TO AN ASSAYUPDATE BY THE ELECTRONICS REPAIR TECHNICIAN.THE NEW ASSAY RANGE IS 6-250 U/L, WITH A REFERENCERANGE OF 16-77 U/L. Performed By: #### 2 72030 ####[facility],[address] [place] [address] TROPONINon 11-15-2024 HS TROPONIN 5.9 pg/mL Normal 0.0 - 51.4 [facility] Comment on above: Performed By: #### 2 37232 ####[facility],[address] [place] [address] URINALYSISon 11-15-2024 Amorphous NONE Normal [facility] Comment on above: Performed By: #### 2 77123 ####[facility],[address] [place] [address] Bacteria NONE Normal [facility] Comment on above: Performed By: #### 2 92092 ####[facility],[address] [place] [address] Bilirubin Ql (U) Negative Normal NORMAL: NEGATIVE [facility] Comment on above: Performed By: #### 2 94457 ####[facility],[address] [place] [address] 16326 Casts NONE Normal [facility] Comment on above: Performed By: #### 2 29510 ####[facility],[address] [place] [address] 87516 Clarity (U) CLEAR Normal NORMAL: CLEAR [facility] Comment on above: Performed By: #### 2 77912 ####[facility],[address] [place] [address] 43202 Color (U) yellow Normal NORMAL: YELLOW [facility] Comment on above: Performed By: #### 2 53546 ####[facility],[address] [place] [address] 67291 Crystals LM Nom (Urine sed) NONE Normal [facility] Comment on above: Performed By: #### 2 72926 ####[facility],[address] [place] [address] 66446 Epi Cells MODERATE Normal [facility] Comment on above: Performed By: #### 2 23638 ####[facility],[address] [place] [address] 87095 Glucose Ql (U) NORM Normal NORMAL: NORMAL [facility] Comment on above: Performed By: #### 2 07539 ####[facility],[address] [place] [address] 67162 Hemoglobin Ql (U) 25 Abnormal NORMAL: NEGATIVE [facility] Comment on above: Performed By: #### 2 26410 ####[facility],[address] [place] [address] 99928 Ketone Negative Normal NORMAL: NEGATIVE [facility] Comment on above: Performed By: #### 2 96782 ####[facility],[address] [place] [address] 47822 Leukocytes Negative Normal NORMAL: NEGATIVE [facility] Comment on above: Performed By: #### 2 17433 ####[facility],[address] [place] [address] 65723 Mucous NONE Normal [facility] Comment on above: Performed By: #### 2 16038 ####[facility],[address] [place] [address] 76976 Nitrite Ql (U) Negative Normal NORMAL: NEGATIVE [facility] Comment on above: Performed By: #### 2 80748 ####[facility],[address] [place] [address] pH (U) 6 [pH] Normal NORMAL: 5.0-8.0 [facility] Comment on above: Performed By: #### 2 41955 ####[facility],[address] [place] [address] Protein Ql (U) 15 Abnormal NORMAL: NEGATIVE [facility] Comment on above: Performed By: #### 2 69887 ####[facility],[address] [place] [address] Rbc 0-5 Normal 0-3/hpf [facility] Comment on above: Performed By: #### 2 41096 ####[facility],[address] [place] [address] Sp [place] 1.020 Normal NORMAL: 1.010-1.030 [facility] Comment on above: Performed By: #### 2 97343 ####[facility],[address] [place] [address] Specimen Type R Normal [facility] Comment on above: Performed By: #### 2 06376 ####[facility],[address] [place], [place] [address] Urinalysis dipstick W Reflex Microscopic panel (U) SEE BELOW Normal [facility] Comment on above: Result Comment: MICR OSCOPIC Performed By: #### 2 15794 ####[facility],[address] [place], [place] [address] Urobilinog NORM Normal NORMAL: NORMAL [facility] Comment on above: Performed By: #### 2 60837 ####[facility],[address] [place] [address] Wbc 1-5 Normal 0-5/hpf [facility] Comment on above: Performed By: #### 2 15882 ####[facility],[address] [place] [address] Yeast NONE Normal [facility] Comment on above: Performed By: #### 2 88137 ####[facility],[address] [place] [address] URINE CULTURE [CCL]on 2024 Bacteria identified Cx Nom (U) Normal [facility] Comment on above: Performed By: #### 2 69371 ####[facility],[address] [place] [address] ED MED ADMINISTRATION DETAIL on 11-09-2024 ED MED ADMINISTRATION DETAIL Normal [facility] ED NURSES CLINICAL NOTEon ED NURSES CLINICAL NOTE Normal [facility] ED PHYSICIAN CLINICAL REPORT on 11-09-2024 ED PHYSICIAN CLINICAL REPORT Normal [facility] ED PHYSICIAN DISCHARGE REPOR Ton 11-09-2024 ED PHYSICIAN DISCHARGE REPORT Normal [facility] ED SUPER BILLon 11-09-2024 ED SUPER BILL Normal [facility] ED VISIT SUMMARYon 5 ED VISIT SUMMARY Normal [facility] ED VITALS FLOW SHEETon 11-09 ED VITALS FLOW SHEET Normal [facility] Bacteria Ur Culton 5 Bacteria identified Cx Nom (U) ORGANISM ID: 1 >=100,000 CFU/ml Normal urogenital pilar Normal [facility] Comment on above: Performed By: #### 6 30-4 ####[facility] [id number] [address] [place] CBC + DIFFon 11-08-2024 Baso # 0.04 x10EE3/UL Normal 0.00 - 0.10 [facility] Comment on above: Performed By: #### 2 32309 ####[facility],[address] [place] [address] 61077 Basophils/100 WBC (Bld) 0.4 % Normal 0.0 - 2.0 [facility] Comment on above: Performed By: #### 2 52235 ####[facility],[address] [place], [place] [address] CBC + DIFF Normal [facility] Comment on above: Result Comment: CBC- COMPLETE BLOOD COUNT Performed By: #### 2 87379 ####[facility],[address] [place] [address] EO # 0.28 x10EE3/UL Normal 0.00 - 0.50 [facility] Comment on above: Performed By: #### 2 01014 ####[facility],[address] [place], [place] [address] Eosinophils/100 WBC (Bld) 2.3 % Normal 0.0 - 7.0 [facility] Comment on above: Performed By: #### 2 89612 ####[facility],[address] [place] [address] Erythrocyte distribution width (RBC) [Ratio] 13.0 % Normal 12.0 - 15.6 [facility] Comment on above: Performed By: #### 2 53263 ####[facility],[address] [place] [address] Hematocrit (Bld) [Volume fraction] 37.8 % Normal 34.0 - 46.0 [facility] Comment on above: Performed By: #### 2 40391 ####[facility],[address] [place] [address] 35821 Hemoglobin (Bld) [Mass/Vol] 13.6 g/dL Normal 12.0 - 16.0 [facility] Comment on above: Performed By: #### 2 36092 ####[facility],[address] [place] [address] 99773 Lymph # 3.70 x10EE3/UL High 0.80 - 2.80 [facility] Comment on above: Performed By: #### 2 46685 ####[facility],[address] [place] [address] 41396 Lymphocytes/100 WBC (Bld) 30.5 % Normal 20.0 - 45.0 [facility] Comment on above: Performed By: #### 2 51039 ####[facility],[address] [place] [address] 92755 MANUAL DIFF N/A Normal [facility] Comment on above: Performed By: #### 2 58703 ####[facility],[address] [place] [address] MCH (RBC) [Entitic mass] 32 pg Normal 27 - 33 [facility] Comment on above: Performed By: #### 2 66878 ####[facility],[address] [place] [address] MCHC 36 X10 3 Normal 32 - 36 [facility] Comment on above: Performed By: #### 2 29889 ####[facility],[address] [place] [address] 45564 MCV (RBC) [Entitic vol] 89 fL Normal 80 - 99 [facility] Comment on above: Performed By: #### 2 20131 ####[facility],[address] [place] [address] [place] # 0.69 x10EE3/UL Normal 0.20 - 1.00 [facility] Comment on above: Performed By: #### 2 04992 ####[facility],[address] [place] [address] 18897 MONOS % 5.7 % Normal 0.0 - 10.0 [facility] Comment on above: Performed By: #### 2 85035 ####[facility],[address] [place] [address] 13063 Morphology Adrian (Bld) [Interp] N/A Normal [facility] Comment on above: Performed By: #### 2 64870 ####[facility],[address] [place] [address] 29878 Neut # 7.43 x10EE3/UL High 1.50 - 7.10 [facility] Comment on above: Performed By: #### 2 [id number] ####[facility],[address] [place] [address] 91026 Neutrophils/100 WBC (Bld) 61.2 % Normal 46.0 - 76.0 [facility] Comment on above: Performed By: #### 2 43056 ####[facility],[address] [place] [address] 67903 PLATELET 265 x10EE3/UL Normal 150 - 450 [facility] Comment on above: Performed By: #### 2 08048 ####[facility],[address] [place] [address] 37073 Platelet mean volume (Bld) [Entitic vol] 8.1 fL Normal 6.6 - 10.5 [facility] Comment on above: Result Comment: AUTO MATED DIFFERENTIAL Performed By: #### 2 05913 ####[facility],[address] [place] [address] 46067 RBC 4.23 x 10EE6/UL Normal 4.10 - 5.30 [facility] Comment on above: Performed By: #### 2 47377 ####[facility],[address] [place] [address] 55621 WBC 12.1 x 10EE3/UL High 4.5 - 10.8 [facility] Comment on above: Performed By: #### 2 91517 ####[facility],[address] [place] [address] 71289 CMP with eGFRon 11-08-2024 AGE 44 years Normal [facility] Comment on above: Performed By: #### 2 50321 ####[facility],[address] [place] [address] 51690 Albumin [Mass/Vol] 4.2 g/dL Normal 3.4 - 5.0 [facility] Comment on above: Performed By: #### 2 85541 ####[facility],[address] [place] [address] 20305 Albumin/Globulin [Mass ratio] 1.1 {ratio} Normal 0.9 - 1.6 [facility] Comment on above: Performed By: #### 2 05772 ####[facility],[address] [place] [address] 73661 ALK PHOS 153 U/L High 46 - 116 [facility] Comment on above: Performed By: #### 2 91689 ####[facility],[address] [place] [address] 82760 ALT [Catalytic activity/Vol] 31 U/L Normal 16 - 63 [facility] Comment on above: Performed By: #### 2 14045 ####[facility],[address] [place] [address] 71897 Anion gap [Moles/Vol] 13 mmol/L Normal 10 - 20 [facility] Comment on above: Performed By: #### 2 47561 ####[facility],[address] [place] [address] 34735 AST [Catalytic activity/Vol] 15 U/L Normal 13 - 39 [facility] Comment on above: Performed By: #### 2 43920 ####[facility],[address] [place] [address] 14013 B/C RATIO 12 ratio Normal 0 - 30 [facility] Comment on above: Performed By: #### 2 09183 ####[facility],[address] [place] [address] 79287 Bilirubin [Mass/Vol] 0.4 mg/dL Normal 0.2 - 1.0 [facility] Comment on above: Performed By: #### 2 66193 ####[facility],[address] [place] [address] 59175 Calcium [Mass/Vol] 8.7 mg/dL Normal 8.5 - 10.1 [facility] Comment on above: Performed By: #### 2 72047 ####[facility],[address] [place] [address] Chloride [Moles/Vol] 106 mmol/L Normal 98 - 107 [facility] Comment on above: Performed By: #### 2 95095 ####[facility],[address] [place] [address] CMP with eGFR Normal [facility] Comment on above: Result Comment: COMP REHENSIVE METABOLIC PANEL Performed By: #### 2 69075 ####[facility],[address] [place] [address] CO2 [Moles/Vol] 23.8 mmol/L Normal 21.0 - 32.0 [facility] Comment on above: Performed By: #### 2 53657 ####[facility],[address] [place] [address] Creatinine [Mass/Vol] 1.19 mg/dL High 0.55 - 1.02 [facility] Comment on above: Performed By: #### 2 10569 ####[facility],[address] [place] [address] eGFR 49 ML/MINUTE Low 60 - 999 [facility] Comment on above: Performed By: #### 2 15216 ####[facility],[address] [place] [address] eGFR(AA) 59 ML/MINUTE Low 60 - 999 [facility] Comment on above: Result Comment: ACCO RDING TO THE NATIONAL KIDNEY DISEASE EDUCATION PROGRAM(NKDE), A NORMAL eGFRIS A VALUE GREATER THAN OR EQUAL TO 60 ML/MIN/1.73 SQ METERS.CHRONIC KIDNEY DISEASE: <60mL/MIN/1.73 SQ METERSKIDNEY FAILURE: <15mL/MIN/1.73 SQ METERSTHIS TEST SHOULD ONLY BE USED FOR PATIENTS 18 YEARS OF AGE AND OLDER. Performed By: #### 2 34301 ####[facility],[address],[place] [address] Globulin (S) [Mass/Vol] 3.7 g/dL Normal 1.5 - 3.8 [facility] Comment on above: Performed By: #### 2 21243 ####[facility],[address] [place] [address] 87347 Glucose [Mass/Vol] 91 mg/dL Normal 74 - 106 [facility] Comment on above: Performed By: #### 2 81308 ####[facility],[address] [place] [address] 06802 Potassium [Moles/Vol] 3.2 mmol/L Low 3.5 - 5.1 [facility] Comment on above: Performed By: #### 2 24970 ####[facility],[address] [place] [address] 15425 Protein [Mass/Vol] 7.9 g/dL Normal 6.4 - 8.2 [facility] Comment on above: Performed By: #### 2 43916 ####[facility],[address] [place] [address] 26693 Sodium [Moles/Vol] 140 mmol/L Normal 136 - 145 [facility] Comment on above: Performed By: #### 2 37326 ####[facility],[address] [place] [address] 07031 Urea nitrogen [Mass/Vol] 14 mg/dL Normal 7 - 18 [facility] Comment on above: Performed By: #### 2 01219 ####[facility],[address] [place] [address] ABDOMEN/PELVIS WOon 11-08 CT ABDOMEN/PELVIS WO Normal [facility] LACTATEon 11-08-2024 Lactate [Moles/Vol] 1.1 mmol/L Normal 0.4 - 2.0 [facility] Comment on above: Performed By: #### 2 02449 ####[facility],[address] [place] [address] 48394 LIPASEon 11-08-2024 Lipase [Catalytic activity/Vol] 47.0 U/L Normal 15.0 - 78.0 [facility] Comment on above: Result Comment: *PLE ASE NOTE THAT RANGES FOR LIPASE HAVE CHANGED OF 09/11/23 DUE TO AN ASSAYUPDATE BY THE ELECTRONICS REPAIR TECHNICIAN.THE NEW ASSAY RANGE IS 6-250 U/L, WITH A REFERENCERANGE OF 16-77 U/L. Performed By: #### 2 22967 ####[facility],[address] [place] [address] URINALYSISon 11-08-2024 Amorphous NONE Normal [facility] Comment on above: Performed By: #### 2 13775 ####[facility],[address] [place] [address] Bacteria 2+ Normal [facility] Comment on above: Performed By: #### 2 32601 ####[facility],[address] [place] [address] Bilirubin Ql (U) Negative Normal NORMAL: NEGATIVE [facility] Comment on above: Performed By: #### 2 42413 ####[facility],[address] [place] [address] Calcium Ox 1+ Normal NORMAL: NONE [facility] Comment on above: Performed By: #### 2 95751 ####[facility],[address] [place] [address] Casts NONE Normal [facility] Comment on above: Performed By: #### 2 24212 ####[facility],[address] [place] [address] 07790 Clarity (U) clear Normal NORMAL: CLEAR [facility] Comment on above: Performed By: #### 2 76339 ####[facility],[address] [place] [address] 04885 Color (U) saravanan Normal NORMAL: YELLOW [facility] Comment on above: Performed By: #### 2 61351 ####[facility],[address] [place], [place] [id number] Crystals LM Nom (Urine sed) SEE BELOW Normal [facility] Comment on above: Performed By: #### 2 18912 ####[facility],[address] [place] [address] 47857 Epi Cells MODERATE Normal [facility] Comment on above: Performed By: #### 2 45362 ####[facility],[address] [place], [place] [id number] Glucose Ql (U) NORM Normal NORMAL: NORMAL [facility] Comment on above: Performed By: #### 2 15346 ####[facility],[address] [place] [address] Hemoglobin Ql (U) 10 Abnormal NORMAL: NEGATIVE [facility] Comment on above: Performed By: #### 2 70686 ####[facility],[address] [place] [address] Ketone Negative Normal NORMAL: NEGATIVE [facility] Comment on above: Performed By: #### 2 26258 ####[facility],[address] [place] [address] 40060 Leukocytes 25 Abnormal NORMAL: NEGATIVE [facility] Comment on above: Performed By: #### 2 85197 ####[facility],[address] [place] [address] 28661 Mucous TRACE Normal [facility] Comment on above: Performed By: #### 2 74989 ####[facility],[address] [place] [address] 65750 Nitrite Ql (U) Negative Normal NORMAL: NEGATIVE [facility] Comment on above: Performed By: #### 2 46013 ####[facility],[address] [place], [place] [id number] pH (U) 5 [pH] Normal NORMAL: 5.0-8.0 [facility] Comment on above: Performed By: #### 2 56856 ####[facility],[address] [place], [place] [id number] Protein Ql (U) 15 Abnormal NORMAL: NEGATIVE [facility] Comment on above: Performed By: #### 2 72980 ####[facility],[address] [place] [address] Rbc 0-5 Normal 0-3/hpf [facility] Comment on above: Performed By: #### 2 74356 ####[facility],[address] [place] [address] Sp [place] 1.025 Normal NORMAL: 1.010-1.030 [facility] Comment on above: Performed By: #### 2 55325 ####[facility],[address] [place] [address] Specimen Type R Normal [facility] Comment on above: Performed By: #### 2 54571 ####[facility],[address] [place] [address] Urinalysis dipstick W Reflex Microscopic panel (U) SEE BELOW Normal [facility] Comment on above: Result Comment: MICR OSCOPIC Performed By: #### 2 79858 ####[facility],[address] [place] [address] Urobilinog NORM Normal NORMAL: NORMAL [facility] Comment on above: Performed By: #### 2 06494 ####[facility],[address] [place] [address] Wbc 6-10 Normal 0-5/hpf [facility] Comment on above: Performed By: #### 2 15203 ####[facility],[address] [place] [address] Yeast NONE Normal [facility] Comment on above: Performed By: #### 2 20458 ####[facility],[address] [place], [place] [id number] CNOVon 11-04-2024 CNOV Office Visit ([facility] ) -------- SALLY VARGAS ([id number]) 1980 F Date Time Provider Department 11/04/24 6:15 PM MARCELINO BESS [facility] During your visit today, we recorded the following information about you: Temperature Pulse Respiration Blood pressure 98.8 degrees 89/minute 20/minute 111/74 Weight 94 kg Marcelino Bess, CAR ATTENDANT.[employer] TEACHER 11/04/2024 6:48 PM Signed Subjective HPI Nontoxic-appearing 44-year-old female presents urgent care chief plaint pharyngitis. Duration of symptoms 2 days. Associated symptoms sore throat. Presents today for evaluation. OTC medications none. Denies any swelling and secretion decreased range of motion of neck or trismus. No fevers. Past medical history prescription medications allergies reviewed. .Patient presents with: Mouth/Lip Problem: Pain in mouth throat and tongue, thick covered sore tongue, x 2 days PAST MEDICAL HISTORY Diagnosis Date Allergic rhinitis, cause unspecified 05/17/2008 Spring and summer Benign liver cyst 05/24/2010 CT scan at [facility] 11/2009 and 04/2010 showe 4 mm increase in size. No pain. No elevated LFTs on 03/11/2010. Calculus of kidney 05/17/[address] 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 Functional vomiting 06/25/2021 Hemorrhoids History of blood transfusion Hydronephrosis of left kidney 02/05/2017 Hydroureter on left 02/05/2017 Impaired fasting glucose 05/17/2008 Sugar 104 fasting, 04/21 Intractable nausea and vomiting 05/25/2020 Marijuana use 07/10/2020 ER visit 07/06/2020, [place] MIGRAINE 05/17/2008 Has used imitrex with good response; Keeps Vicodin on hand when needed; Open wound of left breast 01/19/2023 Ovarian cyst 07/15/2012 Pancreatitis Smoker 05/17/2008 Started age 26, 1/2 a PPD PAST SURGICAL HISTORY Procedure Laterality Date CHOLECYSTECTOMY HX COLONOSCOPY 05/08/2020 poor prep, stool in entire colon, int hemorrhoids, diverticulosis DILATION AND CURETTAGE DXAND/THER NONOBSTETRIC 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, mild esophagitis, 2 cm hiatal hernia EGD W/O BRSH SPEC VARICIES INJ 05/28/2020 LIG/TRNSXJ FLP TUBE ABDL/VAG APPR UNI/BI OOPHORECTOMY PARTIAL/TOTAL UNI/BI 2009 Oophorectomy right, still has left OOPHORECTOMY PARTIAL/TOTAL UNI/BI 01/2015 left removed PAST SURGICAL HISTORY OF uterine ablation PAST SURGICAL HISTORY OF cyst removal TOTAL ABDOMINAL HYSTERECT W/WO RMVL TUBE OVARY 08/31/2006 Hysterectomy, MICHELINE ALLERGIES Aspirin, Penicillins, Cephalexin, Chlorhexidine, Ciprofloxacin, Iodinated Contrast Media, Toradol [Ketorolac], Asa [Salicylates], Contrast Dye [Iodine], Dicyclomine, and Ibuprofen MEDICATIONS predniSONE (DELTASONE) 10 mg tablet Take 4 tabs daily x 3 days, then 3 tabs x 3 days, 2 tabs x 3 days, then 1 tab x3 days with food. promethazine (PHENERGAN) 25 mg tablet Take 1 tablet by mouth every 8 hours as needed for nausea/vomiting. topiramate (TOPAMAX) 25 mg tablet Take 1 tablet by mouth two times a day. traZODone (DESYREL) 50 mg tablet Take 1 tablet by mouth daily at bedtime. [facility] LORazepam (ATIVAN) 0.5 mg Take 1 tablet by mouth once daily as needed. [facility]. escitalopram oxalate (LEXAPRO) 20 mg tablet Take 1 tablet by mouth once daily. [facility]. ARIPiprazole (ABILIFY) 10 mg tablet Take 1 tablet by mouth once daily. [facility]. pantoprazole DR (PROTONIX) 40 mg tablet Take 1 tablet by mouth daily before breakfast. Take on empty stomach, 1/2 hr before meal. sodium chloride (SALINE NASAL) 0.65 % nasal spray Use 1 [place] in the nose as needed. gabapentin (NEURONTIN) 400 mg capsule Take 1 capsule by mouth every 12 hours for 90 days. etodolac (LODINE) 400 mg tablet Take 1 tablet by mouth two times a day as needed. albuterol HFA (VENTOLIN HFA) 90 mcg/actuation inhaler Inhale 2 Puffs as instructed every 4 hours as needed for wheezing/shortness of breath. Cholecalciferol, Vitamin D3, 50 mcg (2,000 unit) cap Take 1 capsule by mouth once daily. SUMAtriptan (IMITREX STATDOSE PEN) 6 mg/0.5 mL pen Inject 0.5 mL subcutaneously as needed for migraine headache (see administration instructions). May repeat dose after 1 hour if needed. Maximum daily dose is 12 mg per day. diphenhydrAMINE (BENADRYL) 25 mg capsule Take 50 mg by mouth at bedtime as needed. FAMILY HISTORY Problem Relation Age of Onset Thyroid Mother unsure of details Arthritis Mother fibromyalgia Blood Disease Mother blood clots, unsure of details (aorta?) No Known Problems Father No Known Problems Sister No Known Problems Sister No Known Problems Brother Diabetes Maternal Grand (more content not included)... Normal [facility] STREP A MOLECULAR (POC)on Procedural Control Valid [facility] Strep A (POCT) Negative Negative [facility] CNOVon 10-27-2024 CNOV Office Visit ([facility] ) -------- SALLY VARGAS ([id number]) 1980 F Date Time Provider Department 10/27/24 1:00 PM ROBBIN HERNANDEZ [facility] During your visit today, we recorded the following information about you: Temperature Pulse Respiration Blood pressure 98.9 degrees 80/minute 18/minute 120/78 Weight 94.8 kg Robbin Hernandez MD 10/27/2024 2:06 PM Signed This note was created using [employer]. Subjective Patient presents with: Headache Sally Vargas is a 44 year old year old female who presents with complaint of acute on chronic migraine headache(s) for 3 weeks. Pain is located diffusely all over and described as burning, moderate, severe, and throbbing. Headaches are described as being severe in intensity. Individual headaches begin associated with symptoms of nausea, vomiting, photophobia, and phonophobia. Headaches may last for days and have been occuring daily.. Symptoms have been treated with resting in quiet dark room and antimigraine drugs Imitrex with decreasing relief. The patient denies numbness, weakness, slurred speech, visual changes, difficulty with gait, change in level of consciousness, change in orientation, and fever. She sees Eduar Alfonso for psychiatry. There seems to be overlap of medication refills, which have spilled over to primary care. Medication reconciliation was done. Review of Systems Per HPI. ACTIVE PROBLEM LIST Calculus of Kidney Allergic rhinitis, cause unspecified Migraine Without Aura Cigarette Smoker Generalized Anxiety Disorder Reactive Depression Adjustment Insomnia Bilateral Low Back Pain Without Sciatica Lung Nodules Pain of Multiple Sites Obesity, Class II, Bmi 35-39.9 Acute Asthmatic Bronchitis Social History Tobacco Use Smoking status: Some Days Average packs/day: 0.5 packs/day for 10.4 years (5.2 ttl pk-yrs) Types: Cigarettes Start date: 01/12/2014 Last attempt to quit: 01/12/2017 Years since quittin.7 Smokeless tobacco: Never Tobacco comments: 1/2 pack per day Vaping Use Vaping status: Never Used Substance Use Topics Alcohol use: Yes Comment: Occasional Drug use: Never Current Outpatient Medications Medication Sig pantoprazole DR (PROTONIX) 40 mg tablet Take 1 tablet by mouth daily before breakfast. Take on empty stomach, 1/2 hr before meal. sodium chloride (SALINE NASAL) 0.65 % nasal spray Use 1 [place] in the nose as needed. cefdinir (OMNICEF) 300 mg capsule Take 1 capsule by mouth two times a day for 10 days. gabapentin (NEURONTIN) 400 mg capsule Take 1 capsule by mouth every 12 hours for 90 days. etodolac (LODINE) 400 mg tablet Take 1 tablet by mouth two times a day as needed. albuterol HFA (VENTOLIN HFA) 90 mcg/actuation inhaler Inhale 2 Puffs as instructed every 4 hours as needed for wheezing/shortness of breath. Cholecalciferol, Vitamin D3, 50 mcg (2,000 unit) cap Take 1 capsule by mouth once daily. SUMAtriptan (IMITREX STATDOSE PEN) 6 mg/0.5 mL pen Inject 0.5 mL subcutaneously as needed for migraine headache (see administration instructions). May repeat dose after 1 hour if needed. Maximum daily dose is 12 mg per day. diphenhydrAMINE (BENADRYL) 25 mg capsule Take 50 mg by mouth at bedtime as needed. predniSONE (DELTASONE) 10 mg tablet Take 4 tabs daily x 3 days, then 3 tabs x 3 days, 2 tabs x 3 days, then 1 tab x3 days with food. promethazine (PHENERGAN) 25 mg tablet Take 1 tablet by mouth every 8 hours as needed for nausea/vomiting. topiramate (TOPAMAX) 25 mg tablet Take 1 tablet by mouth two times a day. traZODone (DESYREL) 50 mg tablet Take 1 tablet by mouth daily at bedtime. [facility]. LORazepam (ATIVAN) 0.5 mg Take 1 tablet by mouth once daily as needed. [facility]. escitalopram oxalate (LEXAPRO) 20 mg tablet Take 1 tablet by mouth once daily. [facility]. ARIPiprazole (ABILIFY) 10 mg tablet Take 1 tablet by mouth once daily. [facility]. No current facility-administered medications for this visit. Objective BP 120/78 (BP Site: Left Arm, BP Position: Sitting, BP Cuff Size: Large Adult) Pulse 80 Temp 37.2 ?C (98.9 ?F) (Temporal) Resp 18 Wt 94.8 kg (208 lb 15.9 oz) LMP 08/10/2006 BMI 38.96 kg/m? Physical Exam Constitutional: General: She is not in acute distress. Appearance: She is not ill-appearing. HENT: Head: Normocephalic. Right Ear: Tympanic membrane normal. Left Ear: Tympanic membrane normal. Nose: No congestion or rhinorrhea. Eyes: Extraocular Movements: Extraocular movements intact. Conjunctiva/sclera: Conjunctivae normal. Cardiovascular: Heart sounds: Normal heart sounds. Pulmonary: Breath sounds: Normal breath sounds. Musculoskeletal: Cervical back: Neck supple. Right lower leg: No edema. Left lower leg: No edema. Neurological: General: No focal deficit present. (more content not included)... Normal [facility] CNOVon 10-18-2024 CNOV Office Visit ([facility] ) -------- SALLY VARGAS ([id number]) 1980 F Date Time Provider Department 10/18/24 11:00 AM SILVEIRO HALEY IN[facility]WS During your visit today, we recorded the following information about you: Temperature Pulse Blood pressure Weight 98.8 degrees 79/minute 118/78 97.2 kg Silverio Haley MD 10/18/2024 12:27 PM Signed This note was created using [employer] Subjective Sally Vargas is a 44 year old female. Patient presents with: Sore Throat: On going for about 4 weeks.Has been seen in [place] x2. Negative for strep.Started on doxycycline and after first dose she started itching. Cough: dry non-productive cough SUBJECTIVE: Sally Vargas is a 44 year old year old lady here today for follow up appointment for review of medical conditions. Sally Vargas is a 44-year-old female, with a history of smoking, presenting with a persistent sore throat, dry cough, and ear pain. Sally reports a 4-week history of a persistent sore throat and dry cough, accompanied by ear pain, primarily in the right ear. She has been unable to eat for 2 weeks due to the severity of the sore throat, consuming only minimal water. She has tried various treatments, including Sudafed, DayQuil, and NyQuil, which provided temporary relief, but her symptoms worsened. She also used a saline nasal spray, which helped slightly with ear pain and sinus congestion. She denies emesis. She was recently prescribed doxycycline but discontinued it after the first dose due to pruritus, which was relieved by Benadryl. She has a known allergy to penicillin, which causes a rash, and has previously experienced pruritus with cephalexin. She denies any known allergies to cefdinir or Bactrim. She has a history of GERD and is currently taking pantoprazole, for which she requests a refill. She has not been using her Wixela (Advair) inhaler but has been using albuterol as needed. She denies current use of prednisone but recalls it being effective in the past. She reports a history of smoking, having quit in July after smoking half a pack per day since resuming in February, following a brief cessation in January. She denies any recent fevers or chills. PAST MEDICAL HISTORY Diagnosis Date Allergic rhinitis, cause unspecified 05/17/2008spring and summer Benign liver cyst 05/24/2010 CT scan at [facility] 11/2009 and 04/2010 showe 4 mm increase in size. No pain. No elevated LFTs on 03/11/2010. Calculus of kidney 05/17/[address] Nicolas: Hospitalized age 20, and again later -- no procedures so far ([facility] most, [address] [facility]) Cancer (HCC) COVID-19 virus infection 10/07/202109/2021 Diverticulosis Dysmenorrhea Hemorrhoids History of blood transfusion Impaired fasting glucose 05/17/2008 Sugar 104 fasting, 04/21 Intractable nausea and vomiting 05/25/2020 Marijuana use 07/10/2020 ER visit 07/06/2020, [place] MIGRAINE 05/17/2008 Has used imitrex with good response; Keeps Vicodin on hand when needed; Ovarian cyst 07/15/2012 Pancreatitis Smoker 05/17/2008 Started age 26, 1/2 a PPD Current Outpatient Medications Medication Sig gabapentin (NEURONTIN) 400 mg capsule Take 1 capsule by mouth every 12 hours for 90 days. traZODone (DESYREL) 50 mg tablet Take 1 tablet by mouth daily at bedtime. ARIPiprazole (ABILIFY) 10 mg tablet Take 1 tablet by mouth once daily. LORazepam (ATIVAN) 0.5 mg Take 1 tablet by mouth once daily as needed for up to 30 days. escitalopram oxalate (LEXAPRO) 20 mg tablet Take 1 tablet by mouth once daily. etodolac (LODINE) 400 mg tablet Take 1 tablet by mouth two times a day as needed. albuterol HFA (VENTOLIN HFA) 90 mcg/actuation inhaler Inhale 2 Puffs as instructed every 4 hours as needed for wheezing/shortness of breath. Cholecalciferol, Vitamin D3, 50 mcg (2,000 unit) cap Take 1 capsule by mouth once daily. SUMAtriptan (IMITREX STATDOSE PEN) 6 mg/0.5 mL pen Inject 0.5 mL subcutaneously as needed for migraine headache (see administration instructions). May repeat dose after 1 hour if needed. Maximum daily dose is 12 mg per day. pantoprazole DR (PROTONIX) 40 mg tablet Take 1 tablet by mouth daily before breakfast. Take on empty stomach, 1/2 hr before meal. promethazine (PHENERGAN) 25 mg tablet Take 1 tablet by mouth every 8 hours as needed for nausea/vomiting. uhryil-ldndradm-lmfyscx (CREON 3) 3,000-9,500- 15,000 unit delayed release capsule Take 1 capsule by mouth three times a day with meals. diphenhydrAMINE (BENADRYL) 25 mg capsule Take 50 mg by mouth at bedtime as needed. doxycycline (VIBRA-TABS) 100 mg tablet Take 1 tablet by mouth two times a day for 5 days. (Patient not taking: Reported on 10/18/2024) fluticasone-salmeterol (WIXELA INHUB) 500-50 mcg/dose dsdv Inhale 1 Puff as instructed two times a day. (Patient not taking: Reported on 10/03/2024) fluticasone-salmete (more content not included)... Normal [facility] CNOVon 10-17-2024 CNOV Office Visit (UCWSTR ) -------- SALLY VARGAS ([id number]) 1980 F Date Time Provider Department 10/17/24 11:00 AM MINI DUENAS CHAN During your visit today, we recorded the following information about you: Temperature Pulse Respiration Blood pressure 97.6 degrees 90/minute 16/minute 124/78 Weight 93.4 kg Mini Duenas APRN.[employer] 10/17/2024 11:08 AM Signed EAR INFECTION, MIDDLE (Otitis Media) DESCRIPTION: Infection in the middle ear. This is not contagious from person to person, but the preceding respiratory infection causing it may be contagious. Involved is the middle-ear space where nerves and small bones connect to the eardrum on one side and the eustachian tube on the other side. Most common in infants and children age 3 months to 3 years. FREQUENT SIGNS AND SYMPTOMS: -Irritability. -Earache. -Feeling of fullness in the ear. -Hearing loss. -Fever. -Dizziness. -Discharge or leakage from the ear. -Diarrhea, vomiting (sometimes). -Pulling at the ear (small children). RISK INCREASE WITH: -Recent illness, such as a respiratory infection, that has lowered resistance. -Crowded or unsanitary living conditions. -Cold climate. -Change in altitude such as flying or driving up mountains. -Family history of ear infections. -Day care. -Smoking in household. PREVENTIVE MEASURES: -Bottle-feed or breast-feed infants in a sitting position with head up, never lying down. -Breast-feeding decreases chances of child having ear infections. -No smoking in household. -Wash bed linens, towels and heating pads regularly to prevent reinfection. TREATMENT: -Diagnosis is usually made by examination of the ear. Fluid from the ear may be cultured. -Treatment usually involves medication and supportive care to relieve pain. -Apply heat to the area around the ears to relieve pain. -Swimming should be avoided until infection clears. -Surgery to insert plastic tubes through the eardrum to drain pus or fluid from the middle ear (rare); or surgery to remove the adenoids. -If the eardrum is bulging additional treatment may be necessary. MEDICATIONS: -Use ear drops to relieve pain. You may use non-prescription drops or those prescribed for a previous infection. They will not cure the infection. -Use non-prescription drugs, such as acetaminophen, to reduce pain and fever. -Antibiotics may be prescribed, if the infection appears to be bacterial rather than viral. Finish the medication. The infection may remain active for several days after symptoms disappear. ACTIVITY: Rest in bed or reduce activity until fever and pain subside. REPORT: -The following occur during treatment: Fever. Severe headache. Earache that persists longer than 2 days. despite treatment. Swelling around the ear. Convulsions. Twitching of the face muscles. Dizziness Mini Duenas APRN.[facility] 10/17/2024 11:14 AM Signed [facility] Subjective Sally Vargas is a 44 year old year old who presents to [facility] care today with complaint of cough and congestion worsening with now bilateral ear pain x >10. Denies headaches, fever, sore throat, shortness of breath, chest pains, Nausea, vomiting, changes in bowel or bladder or skin rashes. Taking Dayquil, Nyquil. Aside from symptoms as described above, patient has no other complaints at this time. HPI: see above Review of Systems Constitutional: Negative for chills, fatigue and fever. HENT: Positive for congestion, ear pain, postnasal drip and sinus pressure. Negative for sore throat and trouble swallowing. Eyes: Negative for pain, discharge, redness and itching. Respiratory: Positive for cough. Negative for chest tightness, shortness of breath and wheezing. Cardiovascular: Negative for chest pain, palpitations and leg swelling. Gastrointestinal: Negative for abdominal pain, diarrhea, nausea and vomiting. Genitourinary: Negative for dysuria, frequency and urgency. Musculoskeletal: Negative for myalgias. Skin: Negative for rash. Neurological: Negative for headaches. Hematological: Negative for adenopathy. ALLERGIES Allergen Reactions Aspirin Unknown Penicillins Rash Cephalexin Itching Chlorhexidine Rash Skin rash Ciprofloxacin Rash Unclear if the pruritic areas of rash were related to medication or not, no prior use Iodinated Contrast * Anaphylaxis Toradol [Ketorolac] Rash Asa [Salicylates] Other: See Comments ulcers Contrast Dye [Iodin* Shortness of Breath Dicyclomine Hives Ibuprofen GI Upset Current Outpatient Medications on File Prior to Visit Medication Sig gabapentin (NEURONTIN) 400 mg capsule Take 1 capsule by mouth every 12 hours for 90 days. traZODone (DESYREL) 50 mg tablet Take 1 tablet by mouth daily at bedtime. ARIPiprazole (ABILIFY) 10 mg tablet Take 1 tablet by mouth once daily. LORazepam (AT (more content not included)... [facility] SALLY [facility]ARGAS ([id number]) 1980 F Date Time Provider Department 10/17/24 SILVERIO HALEY [facility] During your visit today, we recorded the following information about you: Ivanna Torre RN 10/17/2024 10:19 AM Signed Patient calls to schedule an appointment to follow up on sore throat and sinus congestion. Patient declines all available appointments within [facility]. Patient to go to [facility] for evaluation. Ivanna Torre RN Allergies As of Date: 10/17/2024 Noted Allergy Reaction ASPIRIN 05/26/2019 16 - Unknown PENICILLINS 12/07/2009 2 - Rash CEPHALEXIN 10/20/2019 9 - Itching CHLORHEXIDINE 10/29/2016 2 - Rash Comments: Skin rash CIPROFLOXACIN 01/19/2024 2 - Rash Comments: Unclear if the pruritic areas of rash were related to medication or not, no prior use IODINATED CONTRAST MEDIA 02/09/2023 10 - Anaphylaxis TORADOL (KETOROLAC) 05/25/2020 2 - Rash ASA (SALICYLATES) 01/27/2011 14 - Other: See Comments Comments: ulcers CONTRAST DYE (IODINE) 05/17/2008 12 - Shortness of Breath DICYCLOMINE 04/01/2023 4 - Hives IBUPROFEN 06/18/2016 8 - GI Upset Date Reviewed: 10/13/2024 Reviewed by: Luisa Herron MA - Fully Assessed Reason for Visit: Appointment [[id number]] Prescriptions as of 10/17/2024 - gabapentin (NEURONTIN) 400 mg capsule Take 1 capsule by mouth every 12 hours for 90 days. - traZODone (DESYREL) 50 mg tablet Take 1 tablet by mouth daily at bedtime. - ARIPiprazole (ABILIFY) 10 mg tablet Take 1 tablet by mouth once daily. - LORazepam (ATIVAN) 0.5 mg Take 1 tablet by mouth once daily as needed for up to 30 days. - escitalopram oxalate (LEXAPRO) 20 mg tablet Take 1 tablet by mouth once daily. - etodolac (LODINE) 400 mg tablet Take 1 tablet by mouth two times a day as needed. - fluticasone-salmeterol (WIXELA INHUB) 500-50 mcg/dose dsdv Inhale 1 Puff as instructed two times a day. - fluticasone-salmeterol (WIXELA INHUB) 250-50 mcg/dose inhaler Inhale 1 Puff as instructed two times a day. - albuterol HFA (VENTOLIN HFA) 90 mcg/actuation inhaler Inhale 2 Puffs as instructed every 4 hours as needed for wheezing/shortness of breath. - Cholecalciferol, Vitamin D3, 50 mcg (2,000 unit) cap Take 1 capsule by mouth once daily. - SUMAtriptan (IMITREX STATDOSE PEN) 6 mg/0.5 mL pen Inject 0.5 mL subcutaneously as needed for migraine headache (see administration instructions). May repeat dose after 1 hour if needed. Maximum daily dose is 12 mg per day. - pantoprazole DR (PROTONIX) 40 mg tablet Take 1 tablet by mouth daily before breakfast. Take on empty stomach, 1/2 hr before meal. - Mesalamine (LIALDA) 1.2 gram EC tablet Take 1,200 mg by mouth once daily. - promethazine (PHENERGAN) 25 mg tablet Take 1 tablet by mouth every 8 hours as needed for nausea/vomiting. - bldqvg-wvetshfs-ltymxza (CREON 3) 3,000-9,500- 15,000 unit delayed release capsule Take 1 capsule by mouth three times a day with meals. - diphenhydrAMINE (BENADRYL) 25 mg capsule Take 50 mg by mouth at bedtime as needed. Problem List As Of Date 10/17/2024 Noted Resolved Routine gynecological examination [Z01.419] 05/17/2008 02/16/2023 Class: Chronic Family history of diabetes mellitus [Z83.3] 05/17/2008 Calculus of kidney [N20.0] 05/17/2008 Allergic rhinitis, cause unspecified [J30.9] 05/17/2008 Migraine without aura [G43.009] 05/17/2008 Cigarette smoker [F17.210] 05/17/2008 Impaired fasting glucose [R73.01] 05/17/2008 12/01/2023 Benign liver cyst [K76.89] 05/24/2010 Class: Chronic Ovarian cyst [N83.209] 07/15/2012 Generalized anxiety disorder [F41.1] 03/31/2016 Reactive depression [F32.9] 03/31/2016 Adjustment insomnia [F51.02] 03/31/2016 Encounter for screening for cardiovascular diso*03/31/2016 02/16/2023 Bilateral low back pain without sciatica [M54.5*06/18/2016 Pain in left hip [M25.552] 06/18/2016 Greater trochanteric bursitis [M70.60] 06/18/2016 Hydronephrosis of left kidney [N13.30] 02/05/2017 Hydroureter on left [N13.4] 02/05/2017 Right facial numbness [R20.0] 02/23/2017 Right upper extremity numbness [R20.0] 02/23/2017 Numbness of right lower extremity [R20.0] 02/23/2017 Weakness of right upper extremity [R29.898] 02/23/2017 Weakness of right lower extremity [R29.898] 02/23/2017 Vision blurred [H53.8] 02/23/2017 Lumbar spine pain [M54.50] 02/23/2017 Cervical spine pain [M54.2] 02/23/2017 Abnormal MRI, lumbar spine [R93.7] 02/23/2017 Hydroureter, left [N13.4] 03/30/2017 Lung nodules [R91.8] 01/22/2020 Intractable nausea and vomiting [R11.2] 05/25/2020 Chronic pain syndrome [G89.4] 06/06/2020 Liver cyst [K76.89] 06/08/2020 Post-op pain [G89.18] 06/19/2020 02/16/2023 Marijuana use [F12.90] 07/10/2020 03/30/2023 Pain of multiple sites [R52] 04/11/2021 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 Normal [facility] CNOVon 10-13-2024 CNOV Office Visit (UCWSTR ) -------- SALLY VARGAS ([id number]) 1980 F Date Time Provider Department 10/13/24 10:45 AM MAUREEN BARRAGAN [facility] During your visit today, we recorded the following information about you: Temperature Pulse Respiration Blood pressure 97.7 degrees 73/minute 19/minute 120/84 Weight 92.7 kg Maureen Barragan MD 10/13/2024 11:38 AM Signed Patient presents with: Cough: Sore throat, AL x 2 weeks HPI: Feeling sore throat for a couple weeks. She became ill with URI symptoms 5 days ago. Positive symptoms: Cough, Sore throat, Sinus pressure, Nasal Congestion, Rhinorrhea, resolved Fever/Chills, Malaise, Fatigue, Negative symptoms: Shortness of breath, Vomiting, Diarrhea, pyrosis, acid brash, lingering Post nasal drainage, OTC: Nyquil, Dayquil MEDICATIONS: Current Outpatient Medications Medication Sig gabapentin (NEURONTIN) 400 mg capsule Take 1 capsule by mouth every 12 hours for 90 days. traZODone (DESYREL) 50 mg tablet Take 1 tablet by mouth daily at bedtime. ARIPiprazole (ABILIFY) 10 mg tablet Take 1 tablet by mouth once daily. LORazepam (ATIVAN) 0.5 mg Take 1 tablet by mouth once daily as needed for up to 30 days. escitalopram oxalate (LEXAPRO) 20 mg tablet Take 1 tablet by mouth once daily. etodolac (LODINE) 400 mg tablet Take 1 tablet by mouth two times a day as needed. albuterol HFA (VENTOLIN HFA) 90 mcg/actuation inhaler Inhale 2 Puffs as instructed every 4 hours as needed for wheezing/shortness of breath. Cholecalciferol, Vitamin D3, 50 mcg (2,000 unit) cap Take 1 capsule by mouth once daily. SUMAtriptan (IMITREX STATDOSE PEN) 6 mg/0.5 mL pen Inject 0.5 mL subcutaneously as needed for migraine headache (see administration instructions). May repeat dose after 1 hour if needed. Maximum daily dose is 12 mg per day. pantoprazole DR (PROTONIX) 40 mg tablet Take 1 tablet by mouth daily before breakfast. Take on empty stomach, 1/2 hr before meal. promethazine (PHENERGAN) 25 mg tablet Take 1 tablet by mouth every 8 hours as needed for nausea/vomiting. vkwcup-mlkiyvzi-iabfria (CREON 3) 3,000-9,500- 15,000 unit delayed release capsule Take 1 capsule by mouth three times a day with meals. diphenhydrAMINE (BENADRYL) 25 mg capsule Take 50 mg by mouth at bedtime as needed. fluticasone-salmeterol (WIXELA INHUB) 500-50 mcg/dose dsdv Inhale 1 Puff as instructed two times a day. (Patient not taking: Reported on 10/03/2024) fluticasone-salmeterol (WIXELA INHUB) 250-50 mcg/dose inhaler Inhale 1 Puff as instructed two times a day. (Patient not taking: Reported on 10/03/2024) Mesalamine (LIALDA) 1.2 gram EC tablet Take 1,200 mg by mouth once daily. (Patient not taking: Reported on 10/13/2024) No current facility-administered medications for this visit. ALLERGIES: ALLERGIES Allergen Reactions Aspirin Unknown Penicillins Rash Cephalexin Itching Chlorhexidine Rash Skin rash Ciprofloxacin Rash Unclear if the pruritic areas of rash were related to medication or not, no prior use Iodinated Contrast * Anaphylaxis Toradol [Ketorolac] Rash Asa [Salicylates] Other: See Comments ulcers Contrast Dye [Iodin* Shortness of Breath Dicyclomine Hives Ibuprofen GI Upset VITALS: BP 120/84 Pulse 73 Temp 36.5 ?C (97.7 ?F) Resp 19 Wt 92.7 kg (204 lb 5.9 oz) LMP 08/10/2006 SpO2 98% BMI 38.09 kg/m? PHYSICAL EXAM: GEN: mildly ill appearing HEENT: PERRL, EOMI, conjunctiva clear Ears: canals clear. TMs without erythema, bulge, or effusion Sinuses: Nose congested, non-tender frontal sinus, non-tender maxillary sinuses Throat: moist mucous membranes, mild erythema, no exudate, no asymmetry Neck: supple, no thyromegaly, no lymphadenopathy HEART: regular rate, regular rhythm, no murmurs LUNGS: clear to auscultation, no wheezes or crackles, no increased WOB ASSESSMENT/PLAN: 1. Sore throat - ICD9: 462, ICD10: J02.9 (primary diagnosis) - STREP A MOLECULAR (POC) - negative. No clear history of postnasal drainage or reflux inducing sore throat. Declines testing for mononucleosis. Treat with as needed analgesia, lozenges, and gargles. 2. Influenza-like illness - ICD9: 487.1, ICD10: J11.1 - suspect viral URI 6 days. She is beyond the therapeutic window for antiviral treatment and declines testing. - Discussed supportive care treatment with rest, cold medicine, and analgesia. Maureen Barragan MD Allergies As of Date: 10/13/2024 Noted Allergy Reaction ASPIRIN 05/26/2019 16 - Unknown PENICILLINS 12/07/2009 2 - Rash CEPHALEXIN 10/20/2019 9 - Itching CHLORHEXIDINE 10/29/2016 2 - Rash Comments: Skin rash CIPROFLOXACIN 01/19/2024 2 - Rash Comments: Unclear if the pruritic areas of rash were related to medication or not, no prior use IODINATED CONTRAST MEDIA 02/09/2023 10 - Anaphylaxis TORADOL (KETOROLAC) 05/25/2020 2 - Rash ASA (SALICYLATES) 01/28/20 (more content not included)... Normal [facility] STREP A MOLECULAR (POC)on Procedural Control Valid [facility] Strep A (POCT) Negative Negative [facility] Abdomen/Pelvis W IV Cont ONL Yon 10-04-2024 Abdomen/Pelvis W IV Cont ONLY Normal [facility] Absolute neutrophil countOrd ered By: Chance Botello on 10-04-2024 Neutrophils (Bld) [#/Vol] 3.6 10*3/uL 2.0-7.7 [facility] Albumin to globulin ratioOrd ered By: Chance Botello on 10-04-2024 Albumin/Globulin [Mass ratio] 0.9 {ratio} 0.9-2.4 [facility] Bacteria LM.HPF (Urine sed) [#/Area]Ordered By: Chance Botello on 10-04-2024 Urine Bacteria RARE /hpf None Seen [facility] Basophil percentageOrdered B y: Chance Botello on 10-04-2024 Basophils/100 WBC (Bld) 0.9 % 0-1 [facility] Bilirubin Test strip Ql (U)O rdered By: Chance Botello on 10-04-2024 Bilirubin Ql (U) Negative Negative [facility] Bilirubin, totalOrdered By: Chance Crowderer on 10-04-2024 Bilirubin [Mass/Vol] 0.40 mg/dL 0.20-1.00 [facility] Comment on above: For patients on eltr ombopag therapy, use of Dimension [place] TBIL is not recommended. Blood urea nitrogen (BUN)/cr eatinine ratioOrdered By: Chance Rosmery on 10-04-2024 Urea nitrogen/Creatinine [Mass ratio] 14.7 mg/mg 10-20 [facility] CBC W/Diff, Automatedon 09-15 Absolute Lymph 3.27 X10 3/uL Normal 0.83-4.51 [facility] Comment on above: Performed By: #### L 501.2450, L100.0100, L500.4050 ####[facility] [address] [place], [address] Absolute Neut 3.6 X10 3/uL Normal 2.0-7.7 [facility] Comment on above: Performed By: #### L 501.2450, L100.0100, L500.4050 ####[facility] [address] [place], [address] Basophils/100 WBC (Bld) 0.9 % Normal 0-1 [facility] Comment on above: Performed By: #### L 501.2450, L100.0100, L500.4050 ####[facility] [address] [place], [address] Eosinophils/100 WBC (Bld) 3.2 % Normal 0-5 [facility] Comment on above: Performed By: #### L 501.2450, L100.0100, L500.4050 ####[facility] [address] [place], [address] Erythrocyte distribution width (RBC) [Ratio] 13.0 % Normal 11.6-14.6 [facility] Comment on above: Performed By: #### L 501.2450, L100.0100, L500.4050 ####[facility] [address] [place], [address] Hematocrit (Bld) [Volume fraction] 39.4 % Normal 37-47 [facility] Comment on above: Performed By: #### L 501.2450, L100.0100, L500.4050 ####[facility] [address] [place], [address] Hemoglobin (Bld) [Mass/Vol] 12.9 g/dL Normal 12.0-15.0 [facility] Comment on above: Performed By: #### L 501.2450, L100.0100, L500.4050 ####[facility] [address] [place], [address] IG% 1.700 High 0.0-0.9 [facility] Comment on above: Result Comment: IG% - Immature Granulocytes (promyelocytes, myelocytes andmetamyelocytes) > 1% indicates that a LEFT SHIFT is Present. Performed By: #### L 501.2450, L100.0100, L500.4050 ####[facility] [address] [place], [address] Lymphocytes/100 WBC (Bld) 41.6 % High 19-41 [facility] Comment on above: Performed By: #### L 501.2450, L100.0100, L500.4050 ####[facility] [address] [place], [address] MCH (RBC) [Entitic mass] 29.9 pg Normal 27.0-32.0 [facility] Comment on above: Performed By: #### L 501.2450, L100.0100, L500.4050 ####[facility] [address] [place], [address] MCHC (RBC) [Mass/Vol] 32.7 g/dL Normal 32-36 [facility] Comment on above: Performed By: #### L 501.2450, L100.0100, L500.4050 ####[facility] [address] [place], [address] MCV (RBC) [Entitic vol] 91.2 fL Normal 81-99 [facility] Comment on above: Performed By: #### L 501.2450, L100.0100, L500.4050 ####[facility] [address] [place], [address] Monocytes/100 WBC (Bld) 6.9 % Normal 0-10 [facility] Comment on above: Performed By: #### L 501.2450, L100.0100, L500.4050 ####[facility] [address] [place], [address] Neutrophils/100 WBC (Bld) 45.7 % Low 47-70 [facility] Comment on above: Performed By: #### L 501.2450, L100.0100, L500.4050 ####[facility] [address] [place], [address] Nucleated RBC (Bld) [#/Vol] 0 10*3/uL Normal 0-5 [facility] Comment on above: Performed By: #### L 501.2450, L100.0100, L500.4050 ####[facility] [address] [place], [address] Platelet mean volume (Bld) [Entitic vol] 10.4 fL Normal 6.2-12.0 [facility] Comment on above: Performed By: #### L 501.2450, L100.0100, L500.4050 ####[facility] [address] [place], [address] Platelets (Bld) [#/Vol] 250 10*3/uL Normal 150-450 [facility] Comment on above: Performed By: #### L 501.2450, L100.0100, L500.4050 ####[facility] [address] [place], [address] RBC (Bld) [#/Vol] 4.32 10*6/uL Normal 4.2-5.4 [facility] Comment on above: Performed By: #### L 501.2450, L100.0100, L500.4050 ####[facility] [address] [place], [address] RDW SD 43.3 fl Normal 35.1-43.9 [facility] Comment on above: Performed By: #### L 501.2450, L100.0100, L500.4050 ####[facility] [address] [place], [address] WBC (Bld) [#/Vol] 7.9 10*3/uL Normal 4.4-11.0 [facility] Comment on above: Performed By: #### L 501.2450, L100.0100, L500.4050 ####[facility] [address] [place], [address] Carbon dioxide measurementOr dered By: Chance Botello on 10-04-2024 CO2 [Moles/Vol] 31.0 mmol/L 21.0-32.0 [facility] Chloride measurementOrdered By: Chance Botello on 10-04-2024 Chloride [Moles/Vol] 105 mmol/L 98-107 [facility] Comprehensive Metabolic Prof ilon 10-04-2024 Albumin [Mass/Vol] 3.7 g/dL Normal 3.2-5.0 [facility] Comment on above: Performed By: #### L 501.2450, L100.0100, L500.4050 ####[facility] [address] [place], [address] Albumin/Globulin [Mass ratio] 0.9 {ratio} Normal 0.9-2.4 [facility] Comment on above: Performed By: #### L 501.2450, L100.0100, L500.4050 ####[facility] [address] [place], [address] ALK P 140 U/L High 45-117 [facility] Comment on above: Performed By: #### L 501.2450, L100.0100, L500.4050 ####[facility] [address] [place], [address] ALT [Catalytic activity/Vol] 22 U/L Normal 13-56 [facility] Comment on above: Performed By: #### L 501.2450, L100.0100, L500.4050 ####[facility] [address] [place], [address] AST [Catalytic activity/Vol] 9 U/L Low 15-37 [facility] Comment on above: Performed By: #### L 501.2450, L100.0100, L500.4050 ####[facility] [address] [place], [address] Bilirubin [Mass/Vol] 0.40 mg/dL Normal 0.20-1.00 [facility] Comment on above: Result Comment: For patients on eltrombopag therapy, use of Dimension [place] TBIL is not recommended. Performed By: #### L 501.2450, L100.0100, L500.4050 ####[facility] [address] [place], [address] BUN/CRE 14.7 RATIO Normal 10-20 [facility] Comment on above: Performed By: #### L 501.2450, L100.0100, L500.4050 ####[facility] [address] [place], [address] CA,Total 9.2 mg/dL Normal 8.5-10.1 [facility] Comment on above: Performed By: #### L 501.2450, L100.0100, L500.4050 ####[facility] [address] [place], [address] Chloride [Moles/Vol] 105 mmol/L Normal 98-107 [facility] Comment on above: Performed By: #### L 501.2450, L100.0100, L500.4050 ####[facility] [address] [place], [address] CO2 [Moles/Vol] 31.0 mmol/L Normal 21.0-32.0 [facility] Comment on above: Performed By: #### L 501.2450, L100.0100, L500.4050 ####[facility] [address] [place], [address] Creatinine [Mass/Vol] 1.02 mg/dL Normal 0.55-1.02 [facility] Comment on above: Result Comment: The validity of the calculated GFR GFRAA in patients over70 years has not been determined. Clinical correlation isessential. Performed By: #### L 501.2450, L100.0100, L500.4050 ####[facility] [address] [place], [address] ECRCL 72.53 ml/min Normal [facility] Comment on above: Performed By: #### L 501.2450, L100.0100, L500.4050 ####[facility] [address] [place], [address] EST GFR - AA 75 mL/min Normal >60 [facility] Comment on above: Result Comment: Afri can Venezuelan GFR Calc Performed By: #### L 501.2450, L100.0100, L500.4050 ####[facility] [address] [place], [address] GAP 2 Low 5-15 [facility] Comment on above: Performed By: #### L 501.2450, L100.0100, L500.4050 ####[facility] [address] [place], [address] GFR/1.73 sq M.predicted among non-blacks MDRD (S/P/Bld) [Vol rate/Area] 62 mL/min/{1.73_m2} Normal >60 [facility] Comment on above: Result Comment: Non- GFR Calc Performed By: #### L 501.2450, L100.0100, L500.4050 ####[facility] [address] [place], [address] Globulin (S) [Mass/Vol] 3.9 g/dL Normal 2.2-4.2 [facility] Comment on above: Performed By: #### L 501.2450, L100.0100, L500.4050 ####[facility] [address] [place], [address] Glucose [Mass/Vol] 100 mg/dL Normal 74-106 [facility] Comment on above: Result Comment: Fast ing Glucose result from 100 to 125 mg/dLsuggests IMPAIRED HOMEOSTASIS per A.D.A. criteria. Performed By: #### L 501.2450, L100.0100, L500.4050 ####[facility] [address] [place], [address] Potassium [Moles/Vol] 4.2 mmol/L Normal 3.5-5.1 [facility] Comment on above: Performed By: #### L 501.2450, L100.0100, L500.4050 ####[facility] [address] [place], [address] Sodium [Moles/Vol] 138 mmol/L Normal 136-145 [facility] Comment on above: Performed By: #### L 501.2450, L100.0100, L500.4050 ####[facility] [address] [place], [address] T PROT 7.6 g/dL Normal 6.4-8.2 [facility] Comment on above: Performed By: #### L 501.2450, L100.0100, L500.4050 ####[facility] [address] [place], [address] Urea nitrogen [Mass/Vol] 15 mg/dL Normal 7-18 [facility] Comment on above: Performed By: #### L 501.2450, L100.0100, L500.4050 ####[facility] [address] [place], [address] Emergency Department Summary on 10-04-2024 Emergency Department Summary Normal [facility] Eosinophil percentageOrdered By: Chance Botello on 10-04-2024 Eosinophils/100 WBC (Bld) 3.2 % 0-5 [facility] Epithelial cells.squamous LM Ql (Urine sed)Ordered By: Chance Botello on 10-04-2024 Epithelial cells.squamous LM.HPF (Urine sed) [#/Area] 5 /[HPF] 5-10 [facility] Erythrocyte distribution wid th ratioOrdered By: Chance Botello on 10-04-2024 Erythrocyte distribution width (RBC) [Ratio] 13.0 % 11.6-14.6 [facility] Erythrocyte distribution wid th standard deviationOrdered By: Chance Botello on 10-04-2024 Erythrocyte distribution width (RBC) [Entitic vol] 43.3 fL 35.1-43.9 [facility] Estimated glomerular filtrat ion rate (GFR) AmericanOrdered By: Chance Botello on 10-04-2024 Estimated GFR (MDRD) Amer 75 mL/min >60 [facility] Comment on above: GFR Calc Estimation of creatinine linda aranceOrdered By: Chance Botello on 10-04-2024 Estimated Creatinine Clearance Calc 72.53 ml/min [facility] Glomerular filtration rate ( GFR) estimationOrdered By: Chance Botello on 10-04-2024 Estimated GFR (MDRD) Non-Af Amer 62 mL/min >60 [facility] Comment on above: Non- GFR Calc Glucose Ql (U)Ordered By: Jose Botello on 10-04-2024 Urine Glucose (UA) Normal mg/dl Normal [facility] Glucose measurementOrdered B y: Chance Botello on 10-04-2024 Glucose [Mass/Vol] 100 mg/dL 74-106 [facility] Comment on above: Fasting Glucose resu lt from 100 to 125 mg/dL suggests IMPAIRED HOMEOSTASIS per A.D.A. criteria. Hematocrit Auto (Bld) [Volum e fraction]Ordered By: Chance Botello on 10-04-2024 Hematocrit (Bld) [Volume fraction] 39.4 % 37-47 [facility] Hemoglobin measurementOrdere d By: Chance Botello on 10-04-2024 Hemoglobin (Bld) [Mass/Vol] 12.9 g/dL 12.0-15.0 [facility] Immature granulocytes/100 WB C Auto (Bld)Ordered By: Chance Botello on 10-04-2024 Immature granulocytes/100 WBC (Bld) 1.700 % High 0.0-0.9 [facility] Comment on above: IG% - Immature Granu locytes (promyelocytes, myelocytes and metamyelocytes) > 1% indicates that a LEFT SHIFT is Present. Influenza virus A and B and SARS-CoV-2 (COVID-19) and Respiratory syncytial virus RNAOrdered By: Chance Botello on 10-04-2024 SARS-CoV-2 (COVID-19) RNA ABRAM+probe Ql (Unsp spec) [facility] SARS-CoV-2 (COVID-19) RNA ABRAM+probe Ql (Unsp spec) [facility] Ketones Test strip Ql (U)Ord ered By: Chance Botello on 10-04-2024 Ketones Ql (U) Negative Negative [facility] Laboratory - Chemistry and C hemistry - challengeOrdered By: Chance Btoello on 10-04-2024 AST [Catalytic activity/Vol] 9 U/L Low 15-37 [facility] Lipaseon 10-04-2024 Lipase [Catalytic activity/Vol] 43 U/L Normal 13-75 [facility] Comment on above: Result Comment: Plea se note:LIPASE revised reference range effective 22.New Lipase methodology. Expected to produce lower valuesthan the previous assay method.NEW Reference Range: 13 - 75 U/L Performed By: #### L 501.2450, L100.0100, L500.4050 ####[facility] [address] [place], [address] Lipase measurementOrdered By : Chance Botello on 10-04-2024 Lipase [Catalytic activity/Vol] 43 U/L 13-75 [facility] Comment on above: Please note:LIPASE r evised reference range effective 22. New Lipase methodology. Expected to produce lower values than the previous assay method. NEW Reference Range: 13 - 75 U/L Lymphocytes Auto (Unsp spec) [#/Vol]Ordered By: Chance Botello on 10-04-2024 Lymphocytes (Bld) [#/Vol] 3.27 10*3/uL 0.83-4.51 [facility] Lymphocytes/100 WBC Auto (Un sp spec)Ordered By: Chance Botello on 10-04-2024 Lymphocytes/100 WBC (Bld) 41.6 % High 19-41 [facility] M100.678on 10-04-2024 M100.678 Pending SARS-CoV-2 (COVID 19) Negative INFLUENZA A Negative INFLUENZA B Negative RSV PCR Negative Normal [facility] Comment on above: Performed By: #### M 100.678, L400.0001 ####[facility] [address] [place], [place], [id number] MCV (mean corpuscular volume ) determinationOrdered By: Chance Botello on 10-04-2024 MCV (RBC) [Entitic vol] 91.2 fL 81-99 [facility] Mean corpuscular hemoglobin (MCH) determinationOrdered By: Chance Botello on 10-04-2024 MCH (RBC) [Entitic mass] 29.9 pg 27.0-32.0 [facility] Mean corpuscular hemoglobin concentration (MCHC) determinationOrdered By: Chance Botello on 10-04-2024 MCHC (RBC) [Mass/Vol] 32.7 g/dL 32-36 [facility] Mean platelet volume determi nationOrdered By: Chance Botello on 10-04-2024 Platelet mean volume (Bld) [Entitic vol] 10.4 fL 6.2-12.0 [facility] Microscopic analysis of urin e for red blood cells (RBC)Ordered By: Chance Botello on 10-04-2024 Urine RBC 0 SEEN /hpf 0-5 [facility] Monocyte percentageOrdered B y: Chance Botello on 10-04-2024 Monocytes/100 WBC (Bld) 6.9 % 0-10 [facility] Mucus LM Ql (Urine sed)Order ed By: Chance Botello on 10-04-2024 Mucus Ql (Urine sed) 0 SEEN /hpf [facility] Neutrophil percentageOrdered By: Chance Botello on 10-04-2024 Neutrophils/100 WBC (Bld) 45.7 % Low 47-70 [facility] Nitrite Test strip Ql (U)Ord ered By: Chance Botello on 10-04-2024 Nitrite Ql (U) Negative Negative [facility] Nucleated red blood cell per centageOrdered By: Chance Botello on 10-04-2024 Nucleated RBC/100 WBC (Bld) [Ratio] 0 % 0-5 [facility] Platelet countOrdered By: Jose Botello on 10-04-2024 Platelets (Bld) [#/Vol] 250 10*3/uL 150-450 [facility] Potassium measurementOrdered By: Chance Botello on 10-04-2024 Potassium [Moles/Vol] 4.2 mmol/L 3.5-5.1 [facility] Protein Test strip Ql (U)Ord ered By: Chance Botello on 10-04-2024 Protein Ql (U) Negative Negative [facility] RBC Auto (Bld) [#/Vol]Ordere d By: Chance Botello on 10-04-2024 RBC (Bld) [#/Vol] 4.32 10*6/uL 4.2-5.4 [facility] Serum anion gap measurementO rdered By: Chance Botello on 10-04-2024 Anion gap [Moles/Vol] 2 mmol/L Low 5-15 [facility] Serum globulin measurementOr dered By: Chance Botello on 10-04-2024 Globulin (S) [Mass/Vol] 3.9 g/dL 2.2-4.2 [facility] Serum or plasma alanine umanzor otransferase (ALT) measurementOrdered By: Chance Botello on 10-04-2024 ALT [Catalytic activity/Vol] 22 U/L 13-56 [facility] Serum or plasma albumin shelley urement (mass/volume)Ordered By: Chance Botello on 10-04-2024 Albumin [Mass/Vol] 3.7 g/dL 3.2-5.0 [facility] Serum or plasma alkaline omero sphatase measurementOrdered By: Chance Botello on 10-04-2024 ALP [Catalytic activity/Vol] 140 U/L High 45-117 [facility] Serum or plasma calcium shelley urement (mass/volume)Ordered By: Chance Botello on 10-04-2024 Calcium [Mass/Vol] 9.2 mg/dL 8.5-10.1 [facility] Serum or plasma creatinine m easurement (mass/volume)Ordered By: Chance Botello on 10-04-2024 Creatinine [Mass/Vol] 1.02 mg/dL 0.55-1.02 [facility] Comment on above: The validity of the calculated GFR & GFRAA in patients over 70 years has not been determined. Clinical correlation is essential. Serum or plasma urea nitroge n measurement (mass/volume)Ordered By: Chance Botello on 10-04-2024 Urea nitrogen [Mass/Vol] 15 mg/dL 7-18 [facility] Sodium levelOrdered By: Vivi Botello on 10-04-2024 Sodium [Moles/Vol] 138 mmol/L 136-145 [facility] Total proteinOrdered By: Johnathon Botello on 10-04-2024 Protein [Mass/Vol] 7.6 g/dL 6.4-8.2 [facility] Urinalysis, Completeon 10-04 BACTERIA RARE Normal None Seen [facility] Comment on above: Order Comment: CLEAN CATCH Performed By: #### M 100.678, L400.0001 ####[facility] [address] [place], [address] EPI,SQUAMOUS 5-10 SEEN Normal 5-10 [facility] Comment on above: Order Comment: CLEAN CATCH Performed By: #### M 100.678, L400.0001 ####[facility] [address] [place], [address] WBC 0-5 SEEN Normal 0-5 [facility] Comment on above: Order Comment: CLEAN CATCH Performed By: #### M 100.678, L400.0001 ####[facility] [address] [place], [address] Mucus Ql (Urine sed) 0 SEEN Normal [facility] Comment on above: Order Comment: CLEAN CATCH Performed By: #### M 100.678, L400.0001 ####[facility] [address] [place], [address] RBC 0 SEEN Normal 0-5 [facility] Comment on above: Order Comment: CLEAN CATCH Performed By: #### M 100.678, L400.0001 ####[facility] [address] [place], [address] Urine blood detectionOrdered By: Chance Botello on 10-04-2024 Urine Occult Blood Negative Negative [facility] Urine clarityOrdered By: Johnathon Botello on 10-04-2024 Clarity (U) Clear Clear [facility] Urine color determinationOrd ered By: Chance Botello on 10-04-2024 Color (U) Yellow Yellow [facility] Urine leukocyte esterase det ection by dipstickOrdered By: Chance Botello on 01-21-2025 Leukocyte esterase Test strip Ql (U) Negative Negative [facility] Urine pHOrdered By: Chance carrillo on 10-04-2024 pH (U) 6.5 [pH] 5.0 - 8.0 [facility] Urine specific gravity measu rementOrdered By: Chance Botello on 10-04-2024 Specific gravity (U) [Rel density] 1.005 1.002-1.030 [facility] Urobilinogen Ql (U)Ordered B y: Chance Botello on 10-04-2024 Urine Urobilinogen Normal mg/dl Normal [facility] White blood cell (WBC) count Ordered By: Chance Botello on 10-04-2024 WBC (Bld) [#/Vol] 7.9 10*3/uL 4.4-11.0 [facility] White blood cell countOrdere d By: Chance Botello on 10-04-2024 Urine WBC 0-5 SEEN /hpf 0-5 [facility] CNOVon 10-03-2024 CNOV Office Visit (INTMWS ) -------- TOSHIASALLY TORRES ([id number]) 1980 F Date Time Provider Department 10/03/24 10:00 AM SILVERIO HALEY INTMWS During your visit today, we recorded the following information about you: Temperature Pulse Respiration Blood pressure 98.6 degrees 64/minute 16/minute 118/74 Weight 92.3 kg Silverio Haley MD 10/03/2024 11:01 AM Signed This note was created using [employer]. Subjective Sally Vargas is a 44 year old female. Patient presents with: ED Follow-up: [facility] ED follow up 09/24/2024 for left flank pain SUBJECTIVE: Sally Vargas is a 44 year old year old lady here today for ER follow up appointment for review of medical conditions. Sally Vargas is a 44-year-old female with a history of asthma, anxiety, and depression, presenting for evaluation of persistent left-sided lower back pain, dyspnea, and chest tightness. Sally reports persistent left-sided lower back pain that began in July. The pain is constant, worsens with movement, and is particularly severe when standing or changing positions in bed. She describes the pain as a tight sensation in the muscles and denies any known trauma or specific incident that may have caused the pain. She has tried Tylenol and multiple muscle relaxants, including Flexeril, tizanidine, and baclofen, without relief. She also reports that heat provides temporary relief. She has a history of lumbar arthritis and bone spurs, but this pain is new and different from previous episodes. She has not tried physical therapy and is reluctant to do so. Sally also reports dyspnea and chest tightness that began approximately one month ago. These symptoms are exacerbated by walking and have been persistent since onset. She denies any recent acute illnesses, such as cough, colds, fevers, or chills. She has a history of a sinus infection in September, which was treated with doxycycline, and a cough in July. She has not yet seen a electronic musical instrument repairer for asthma follow-up. Additionally, Sally reports severe fatigue and low energy levels over the past month, with difficulty sleeping. She estimates she is only getting 2-3 hours of sleep per night, with frequent awakenings. She denies any specific factors keeping her awake and describes her house as quiet. She has tried background noise and breathing exercises without improvement. She was previously on multiple medications, including aripiprazole, lorazepam, gabapentin, trazodone, and escitalopram, but has been off these medications since May due to a lapse in psychiatric care. She reports a recurrence of depression since discontinuing these medications. PAST MEDICAL HISTORY Diagnosis Date Allergic rhinitis, cause unspecified 05/17/2008 Spring and summer Benign liver cyst 05/24/2010 CT scan at [facility] 11/2009 and 04/2010 showe 4 mm increase in size. No pain. No elevated LFTs on 03/11/2010. Calculus of kidney 05/17/[address] Nicolas: Hospitalized age 20, and again later -- no procedures so far ([facility], [facility], [address] [facility]) Cancer (HCC) COVID-19 virus infection 10/07/202109/2021 Diverticulosis Dysmenorrhea Hemorrhoids History of blood transfusion Impaired fasting glucose 05/17/2008 Sugar 104 fasting, 04/21 Intractable nausea and vomiting 05/25/2020 Marijuana use 07/10/2020 ER visit 07/06/2020, [place] MIGRAINE 05/17/2008 Has used imitrex with good response; Keeps Vicodin on hand when needed; Ovarian cyst 07/15/2012 Pancreatitis Smoker 05/17/2008 Started age 26, 1/2 a PPD Current Outpatient Medications Medication Sig albuterol HFA (VENTOLIN HFA) 90 mcg/actuation inhaler Inhale 2 Puffs as instructed every 4 hours as needed for wheezing/shortness of breath. Cholecalciferol, Vitamin D3, 50 mcg (2,000 unit) cap Take 1 capsule by mouth once daily. SUMAtriptan (IMITREX STATDOSE PEN) 6 mg/0.5 mL pen Inject 0.5 mL subcutaneously as needed for migraine headache (see administration instructions). May repeat dose after 1 hour if needed. Maximum daily dose is 12 mg per day. pantoprazole DR (PROTONIX) 40 mg tablet Take 1 tablet by mouth daily before breakfast. Take on empty stomach, 1/2 hr before meal. ARIPiprazole (ABILIFY) 10 mg tablet Take 10 mg by mouth once daily. LORazepam (ATIVAN) 0.5 mg Take 0.5 mg by mouth once daily as needed. promethazine (PHENERGAN) 25 mg tablet Take 1 tablet by mouth every 8 hours as needed for nausea/vomiting. prurun-syeyycct-ppogdfg (CREON 3) 3,000-9,500- 15,000 unit delayed release capsule Take 1 capsule by mouth three times a day with meals. gabapentin (NEURONTIN) 400 mg capsule Take 1 capsule by mouth every 12 hours. diphenhydrAMINE (BENADRYL) 25 mg capsule Take 50 mg by mouth at bedtime as needed. Brompheniramine-Pseudoep h-DM (BROMFED DM) 2-30-10 mg/5 mL syrup Take 5 mL by mouth four times a day (more content not included)... Normal [facility] ED MED ADMINISTRATION DETAIL on 09-29-2024 ED MED ADMINISTRATION DETAIL Normal [facility] ED NURSES CLINICAL NOTEon 01 -16-2025 ED NURSES CLINICAL NOTE Normal J oel Replaced By [facility] ED ORDER SHEET (CPOE ONLY)on 09-29-2024 ED ORDER SHEET (CPOE ONLY) Normal [facility] ED PHYSICIAN CLINICAL REPORT on 09-29-2024 ED PHYSICIAN CLINICAL REPORT Normal [facility] ED PHYSICIAN DISCHARGE REPOR Ton 09-29-2024 ED PHYSICIAN DISCHARGE REPORT Normal [facility] ED SUPER BILLon 09-29-2024 ED SUPER BILL Normal [facility] ED VISIT SUMMARYon ED VISIT SUMMARY Normal [facility] ED VITALS FLOW SHEETon 09-29 ED VITALS FLOW SHEET Normal [facility] .Auto Diffon 09-24-2024 Basophil, Absolute 0.1 10 3/mcL Normal 0.0-0.2 [facility] Comment on above: Performed By: #### U A, UAMICAO #### [address] [address] Basophils/100 WBC (Bld) 2.0 % Normal 0.0-2.5 [facility] Comment on above: Performed By: #### U A, UAMICAO #### [address] [address] Eosinophil, Absolute 0.2 10 3/mcL Normal 0.0-0.7 [facility] Comment on above: Performed By: #### U A, UAMICAO #### [address] [address] Eosinophils/100 WBC (Bld) 2.3 % Normal 0.0-7.0 [facility] Comment on above: Performed By: #### U A, UAMICAO #### [address] [address] Lymphocyte, Absolute 2.8 10 3/mcL Normal 0.9-4.3 [facility] Comment on above: Performed By: #### U A, UAMICAO #### [address] [address] Lymphocytes/100 WBC (Bld) 38.4 % Normal 20.0-40.0 [facility] Comment on above: Performed By: #### U A, UAMICAO #### [address] [address] Monocyte, Absolute 0.5 10 3/mcL Normal 0.1-1.4 [facility] Comment on above: Performed By: #### U A, UAMICAO #### [address] [address] Monocytes/100 WBC (Bld) 6.9 % Normal 2.0-13.0 [facility] Comment on above: Performed By: #### U A, UAMICAO #### [address] [address] Neutrophils/100 WBC (Bld) 50.4 % Normal 50.0-75.0 [facility] Comment on above: Performed By: #### U A, UAMICAO #### [address] [address] .GFRon 09-24-2024 GFR 75 ml/min/1.73sqm Normal [facility] Comment on above: Result Comment: GFR Population mean for , Non- Americans Ages 20-29 = 116 mL/min/1.73 sq.m. Ages 30-39 = 107 mL/min/1.73 sq.m. Ages 40-49 = 99 mL/min/1.73 sq.m. Ages 50-59 = 93 mL/min/1.73 sq.m. Ages 60-69 = 85 mL/min/1.73 sq.m. Ages 70+ = 75 mL/min/1.73 sq.m. Chronic Kidney Disease: Less than 60 mL/min/1.73 square meters End Stage Renal Disease: Less than 15 mL/min/1.73 square meters Performed By: #### U A, UAMICAO #### [address] [address] GFR Non- 62 ml/min/1.73sqm Normal [facility] Comment on above: Result Comment: GFR Population mean for , Non- Americans Ages 20-29 = 116 mL/min/1.73 sq.m. Ages 30-39 = 107 mL/min/1.73 sq.m. Ages 40-49 = 99 mL/min/1.73 sq.m. Ages 50-59 = 93 mL/min/1.73 sq.m. Ages 60-69 = 85 mL/min/1.73 sq.m. Ages 70+ = 75 mL/min/1.73 sq.m. Chronic Kidney Disease: Less than 60 mL/min/1.73 square meters End Stage Renal Disease: Less than 15 mL/min/1.73 square meters Performed By: #### U A, UAMICAO #### [place] [address] .MDWon 09-24-2024 Monocyte Distribution Width Not performed Normal 0.00-20.00 [facility] Comment on above: Result Comment: MDW testing performed only on adult ER patients between the ages of 18-89 years. Performed By: #### U Hanna UAMICAO #### [place] [address] .NEUABSon 09-24-2024 Neutrophil, Absolute 3.7 10 3/mcL Normal 2.3-8.1 [facility] Comment on above: Performed By: #### U Hanna UAM[place]O #### [place] [address] .Urinalysis Microscopic (AO) on 09-24-2024 UA CA Ox Crystal 1+ /hpf Normal [facility] Comment on above: Performed By: #### U A [place]AM[place]O #### [place] [address] UA RBC 0-5 Abnormal None Seen [facility] Comment on above: Performed By: #### U A [place]O #### [place] [address] UA Squam Epithelial 5-10 Abnormal None Seen [facility] Comment on above: Performed By: #### U A UAM[place]O #### [place] [address] UA WBC 0-5 Abnormal None Seen [facility] Comment on above: Performed By: #### U Hanna UAM[place]O #### [address] [address] BMPon 09-24-2024 BUN/Creatinine Ratio 13 ratio Normal 7-27 [facility] Comment on above: Performed By: #### U Hanna UAM[place]O #### [address] [address] Calcium [Mass/Vol] 9.4 mg/dL Normal 8.4-10.2 [facility] Comment on above: Performed By: #### U Hanna UAMICAO #### [address] [address] Chloride [Moles/Vol] 101 mmol/L Normal 98-107 [facility] Comment on above: Performed By: #### Sandrine Ferreira UAMICAO #### [address] [address] CO2 [Moles/Vol] 29 mmol/L Normal 22-29 [facility] Comment on above: Performed By: #### Sandrine Ferreira U[place]O #### [address] [address] Creatinine [Mass/Vol] 0.97 mg/dL Normal 0.55-1.02 [facility] Comment on above: Result Comment: Test ing performed on Siemens Dimension EXL analyzer using a modified kinetic Eleuterio technique. Performed By: #### Sandrine Ferreira UAM[place]O #### [address] [address] Electrolyte Balance 7.0 mEq/L Normal 4.0-15.0 [facility] Comment on above: Performed By: #### U Hanna UAM[place]O #### [address] [address] Glucose [Mass/Vol] 91 mg/dL Normal 70-105 [facility] Comment on above: Performed By: #### U Hanna UAMICAO #### [address] [address] Potassium [Moles/Vol] 4.4 mmol/L Normal 3.5-5.1 [facility] Comment on above: Performed By: #### ANN MARIE Flores #### [place] [address] Sodium [Moles/Vol] 137 mmol/L Normal 136-145 [facility] Comment on above: Performed By: #### ANN MARIE Flores #### [place] [address] Urea nitrogen [Mass/Vol] 13 mg/dL Normal 7-18 [facility] Comment on above: Performed By: #### ANN MARIE Flores #### [place] [address] CBCon 09-24-2024 Erythrocyte distribution width (RBC) [Ratio] 13.9 % Normal 11.5-15.5 [facility] Comment on above: Order Comment: [facility] Performed By: #### ANN MARIE Flores #### [place] [address] Hematocrit (Bld) [Volume fraction] 39.3 % Normal 34.0-46.0 [facility] Comment on above: Order Comment: [facility] Performed By: #### ANN MARIE Flores #### [place] [address] Hgb 13.3 G/dL Normal 12.0-16.0 [facility] Comment on above: Order Comment: [facility] Performed By: #### Sandrine Ferreira UAJOSE EDUARDO #### [place] [address] MCH (RBC) [Entitic mass] 30.4 pg Normal 27.0-33.0 [facility] Comment on above: Order Comment: [facility] Performed By: #### Sandrine Ferreira UAMICAO #### [place] [address] MCHC 33.8 G/dL Normal 32.0-36.0 [facility] Comment on above: Order Comment: [facility] Performed By: #### Sandrine Ferreira UAMICAO #### [address] [address] MCV (RBC) [Entitic vol] 89.9 fL Normal 80.0-99.0 [facility] Comment on above: Order Comment: [facility] Performed By: #### U Hanna UAMICAO #### [address] [address] Platelet 218 10 3/mcL Normal 150-450 [facility] Comment on above: Order Comment: [facility] Performed By: #### U Hanna UAMICAO #### [address] [address] Platelet mean volume (Bld) [Entitic vol] 8.5 fL Normal 6.6-10.5 [facility] Comment on above: Order Comment: [facility] Performed By: #### ANN MARIE Flores #### [address] [address] RBC 4.37 10 6/mcL Normal 4.10-5.30 [facility] Comment on above: Order Comment: [facility] Performed By: #### ANN MARIE Flores #### [address] [address] WBC 7.3 10 3/mcL Normal 4.5-10.8 [facility] Comment on above: Order Comment: [facility] Performed By: #### GUSTAVO FloresMICAO #### [address] [address] [address] ABDOMEN/PELVIS W/O CONTRA STon 09-24-2024 CT ABDOMEN/PELVIS W/O CONTRAST ORIGINAL EXAMINATION: Exam Title:CT OF THE ABDOMEN AND PELVIS WITHOUT CONTRAST Completed Time: 09/24/2024 11:58 am Procedure Description:CT ABDOMEN/PELVIS WITHOUT CONTRAST COMPARISON: February 04, 2024 CT abdomen pelvis HISTORY: ORDERING SYSTEM PROVIDED HISTORY: Reason for Exam: LEFT flank [id number]^ TECHNIQUE: Noncontrast CT performed according to protocol with multiplanar reconstructions. This exam was performed according to our departmental dose optimization program, and includes the following measures where applicable: automated exposure control, adjustment of the mAs and/or kVp according to patient size and/or exam, and an iterative reconstruction algorithm. FINDINGS: Lack of IV and oral contrast limits soft tissue differentiation. Heart size upper limits of normal caliber-mildly enlarged. Tiny pericardial effusion. No hiatal hernia. Mild right middle lobe scar/atelectasis. There are multiple well-circumscribed low-attenuation foci of liver, largest measures up to 3.8 cm, similar to prior exams and felt to be benign cysts. Cholecystectomy. Portal vein caliber normal. Pancreas, spleen, adrenal glands, aorta, inferior vena cava normal in appearance. No obstructive uropathy. There are several peripheral collecting system calculi left kidney measuring up to 2.6 mm. No evidence for ureteral or bladder calculi. Several deep pelvic phleboliths. No bowel obstruction or pneumoperitoneum. Terminal ileum normal in appearance. Llxa-zr-aelmkmez amount of stool throughout the colon. No enlarged lymph nodes. No free fluid. Hysterectomy. Bladder contour normal. Obese body habitus. Mild discogenic change thoracic spine. No gross acute osseous process. IMPRESSION:[] 1. No acute process demonstrated. 2. Other findings described above. Interpreted by: Mihir Oakes DO Preliminary Report By: Mihir Oakes DO Electronically signed By Mihir Oakes DO Dictated Date: 09/24/2024 12:09:26 PM Prelim Date: 09/24/2024 12:14:21 PM Sign Date: 09/24/2024 12:14:21 PM Ordering Provider: KAREY Guardado [facility] LABORATORYOrdered By: SYSTEM SYSTEM on 09-24-2024 Basophils (Bld) [#/Vol] 0.1 103/mcL Normal 0.0 - 0.2 10^3/mcL AO Workflow SS Basophils/100 WBC (Bld) 2.0 % Normal 0.0 - 2.5 % AO Workflow SS Eosinophil, Absolute 0.2 103/mcL Normal 0.0 - 0 .7 10^3/mcL AO Workflow SS Eosinophils/100 WBC (Bld) 2.3 % Normal 0.0 - 7.0 % AO Workflow SS Erythrocyte distribution width (RBC) [Ratio] 13.9 % Normal 11.5 - 15.5 % AO Workflow SS Hematocrit (Bld) [Volume fraction] 39.3 % Normal 34.0 - 46.0 % AO Workflow SS Hemoglobin (Bld) [Mass/Vol] 13.3 G/dL Normal 12.0 - 16.0 G/dL AO Workflow SS Lymphocytes (Bld) [#/Vol] 2.8 103/mcL Normal 0.9 - 4.3 10^3/mcL AO Workflow SS Lymphocytes/100 WBC (Bld) 38.4 % Normal 20.0 - 40.0 % AO Workflow SS MCH (RBC) [Entitic mass] 30.4 pg Normal 27.0 - 33.0 pg AO Workflow SS MCHC 33.8 G/dL Normal 32.0 - 36.0 G/dL AO Workflow SS MCV (RBC) [Entitic vol] 89.9 fL Normal 80.0 - 99.0 fL AO Workflow SS Monocyte distribution width Auto (Bld) [Entitic vol] Not Performed 1 *NA* (09/24/24 11:30 AM) Invalid Interpretation Code 0.00 - 20.00 AO Hematology S Comment on above: Result Comment: MDW testing performed only on adult ER patients between the ages of 18-89 years. Monocytes (Bld) [#/Vol] 0.5 103/mcL Normal 0.1 - 1.4 10^3/mcL AO Workflow SS Monocytes/100 WBC (Bld) 6.9 % Normal 2.0 - 13.0 % AO Workflow SS Neutrophils (Bld) [#/Vol] 3.7 103/mcL Normal 2.3 - 8.1 10^3/mcL AO Workflow SS Neutrophils/100 WBC (Bld) 50.4 % Normal 50.0 - 75.0 % AO Workflow SS Platelet mean volume (Bld) [Entitic vol] 8.5 fL Normal 6.6 - 10.5 fL AO Workflow SS Platelets (Bld) [#/Vol] 218 103/mcL Normal 150 - 450 10^3/mcL AO Workflow SS RBC (Bld) [#/Vol] 4.37 106/mcL Normal 4.10 - 5.3 0 10^6/mcL AO Workflow SS WBC (Bld) [#/Vol] 7.3 103/mcL Normal 4.5 - 10.8 10^3/mcL AO Workflow SS Calcium [Mass/Vol] 9.4 mg/dL Normal 8.4 - 10. 2 mg/dL AO ADM SS Chloride [Moles/Vol] 101 mmol/L Normal 98 - 10 7 mmol/L AO ADM SS CO2 [Moles/Vol] 29 mmol/L Normal 22 - 29 mmol/L AO ADM SS Creatinine [Mass/Vol] 0.97 mg/dL Normal 0.55 - 1.02 mg/dL AO ADM SS Comment on above: Interpretive Data: T esting performed on Siemens Dimension EXL analyzer using a modified kinetic Eleuterio technique. Electrolyte Balance 7.0 mEq/L Normal 4.0 - 15 .0 mEq/L AO ADM SS GFR/1.73 sq M.predicted among blacks MDRD (S/P/Bld) [Vol rate/Area] 75 ml/min/1.73sqm Invalid Interpretation Code AO Chemistry S Comment on above: Interpretive Data: GFR Population mean for , Non- Americans Ages 20-29 = 116 mL/min/1.73 sq.m. Ages 30-39 = 107 mL/min/1.73 sq.m. Ages 40-49 = 99 mL/min/1.73 sq.m. Ages 50-59 = 93 mL/min/1.73 sq.m. Ages 60-69 = 85 mL/min/1.73 sq.m. Ages 70+ = 75 mL/min/1.73 sq.m. Chronic Kidney Disease: Less than 60 mL/min/1.73 square meters End Stage Renal Disease: Less than 15 mL/min/1.73 square meters GFR/1.73 sq M.predicted among non-blacks MDRD (S/P/Bld) [Vol rate/Area] 62 ml/min/1.73sqm Invalid Interpretation Code AO Chemistry S Comment on above: Interpretive Data: GFR Population mean for , Non- Americans Ages 20-29 = 116 mL/min/1.73 sq.m. Ages 30-39 = 107 mL/min/1.73 sq.m. Ages 40-49 = 99 mL/min/1.73 sq.m. Ages 50-59 = 93 mL/min/1.73 sq.m. Ages 60-69 = 85 mL/min/1.73 sq.m. Ages 70+ = 75 mL/min/1.73 sq.m. Chronic Kidney Disease: Less than 60 mL/min/1.73 square meters End Stage Renal Disease: Less than 15 mL/min/1.73 square meters Glucose [Mass/Vol] 91 mg/dL Normal 70 - 105 mg/dL AO ADM SS Potassium [Moles/Vol] 4.4 mmol/L Normal 3.5 - 5.1 mmol/L AO ADM SS Sodium [Moles/Vol] 137 mmol/L Normal 136 - 145 mmol/L AO ADM SS Urea nitrogen [Mass/Vol] 13 mg/dL Normal 7 - 18 mg/dL AO ADM SS Urea nitrogen/Creatinine [Mass ratio] 13 ratio Normal 7 - 27 ratio AO ADM SS LABORATORYOrdered By: Helen Jones on 09-24-2024 Appearance (U) Clear (09/24/24 10:59 AM) Normal Clear AO Auto Urine SS Bilirubin Ql (U) Negative (09/24/24 10:59 AM) Normal Negative AO Auto Urine SS Calcium oxalate crystals LM.HPF (Urine sed) [#/Area] 1 /[HPF] Normal AO Auto Urine SS Color (U) Yellow (09/24/24 10:59 AM) Normal AO Auto Urine SS Glucose Test strip (U) [Mass/Vol] Negative Normal Negative AO Auto Urine SS Hemoglobin Auto test strip (U) [Mass/Vol] Small *ABN* (09/24/24 10:59 AM) Invalid Interpretation Code Negative AO Auto Urine SS Ketones Ql (U) Negative Normal Negative AO Auto Urine SS UA Leuk Est Negative (09/24/24 10:59 AM) Normal Negative AO Auto Urine SS UA Nitrite Negative (09/24/24 10:59 AM) Normal Negative AO Auto Urine SS UA pH 5.5 (09/24/24 10:59 AM) Normal 5.0 - 8.0 AO Auto Urine SS UA Protein Negative Normal Negative AO Auto Urine SS UA RBC 0-5 /HPF Invalid Interpretation Code None Seen AO Auto Urine SS UA Spec Grav >=1.030 *ABN* (09/24/24 10:59 AM) Invalid Interpretation Code 1.015-1.025 AO Auto Urine SS UA Specimen Type Clean Catch (09/24/24 10:59 AM) Normal AO Auto Urine SS UA Squam Epithelial 5-10 /HPF Invalid Interpretation Code None Seen AO Auto Urine SS UA Urobilinogen 0.2 E.U./dL Normal 0.2-1.0 AO Auto Urine SS WBC LM.HPF (Urine sed) [#/Area] 0-5 /HPF Invalid Interpretation Code None Seen AO Auto Urine SS UAon 09-24-2024 Color (U) Yellow Normal [facility] Comment on above: Performed By: #### U A, UAMICAO #### [place] [address] Glucose (U) [Mass/Vol] Negative Normal Negative [facility] Comment on above: Performed By: #### U A, UAMICAO #### [place] [address] Ketones Ql (U) Negative Normal Negative [facility] Comment on above: Performed By: #### U A, UAMICAO #### [place] [address] UA Appear Clear Normal Clear [facility] Comment on above: Performed By: #### U A, UAMICAO #### [place] [address] UA Blood Small Abnormal Negative [facility] Comment on above: Performed By: #### U A, UAMICAO #### [place] [address] UA Leuk Est Negative Normal Negative [facility] Comment on above: Performed By: #### U A, UAMICAO #### [place] [address] UA Nitrite Negative Normal Negative [facility] Comment on above: Performed By: #### U A, UAMICAO #### [place] [address] UA pH 5.5 Normal 5.0 - 8.0 [facility] Comment on above: Performed By: #### U A, UAMICAO #### [place] [address] UA Protein Negative Normal Negative [facility] Comment on above: Performed By: #### U A, UAMICAO #### [place] [address] UA Spec Grav >=1.030 Abnormal 1.015-1.025 [facility] Comment on above: Performed By: #### U A, UAMICAO #### [place] [address] [place], [place] [address] UA Specimen Type Clean Catch Normal [facility] Comment on above: Performed By: #### U A, UAMICAO #### [facility] [address] [place], [place] [address] UA Urobilinogen 0.2 E.U./dL Normal 0.2-1.0 [facility] Comment on above: Performed By: #### U A, UAMICAO #### [place] [address] [place], [place] [address] Urobilinogen (U) [Mass/Vol] Negative Normal Negative [facility] Comment on above: Performed By: #### U A, UAMICAO #### [place] [address] [place], [place] [address] CNOVon 09-21-2024 CNOV Office Visit (INTMWS ) -------- TOSHIASALLY TORRES ([id number]) 1980 F Date Time Provider Department 09/21/24 10:40 AM JAJA CHAHAL INTMWS During your visit today, we recorded the following information about you: Temperature Pulse Respiration Blood pressure 97.2 degrees 85/minute 16/minute 126/78 Weight 90.8 kg Jaja Chahal, CAR ATTENDANT.[employer] TE[employer]ER 09/21/2024 10:55 AM Signed CC: Patient presents with: Cough: Congestion x 1 month HPI: Sally Vargas is a 44 year old female who presents to the office with above complaint Symptoms began one month ago and are worsening Symptoms include: Temperature elevation: No Chills: No Cough: Yes non-productive Shortness of breath: No Fatigue: Yes Muscle aches: No Headache: Yes New loss of smell or taste: No Sore throat: Yes Nasal congestion: Yes Rhinorrhea: No Nausea and/or vomiting: No Diarrhea: No Other Associated symptoms: wheezing. PMH: asthma OTC meds/remedies that patient has tried: none. Exposures: Sick contacts? No Family or close contacts with confirmed/probable COVID-19 in last 14 days? No Home COVID test: yes, negative Review of Systems See HPI PAST MEDICAL HISTORY Diagnosis Date Allergic rhinitis, cause unspecified 05/17/2008 Spring and summer Benign liver cyst 05/24/2010 CT scan at [facility] 11/2009 and 04/2010 showe 4 mm increase in size. No pain. No elevated LFTs on 03/11/2010. Calculus of kidney 05/17/[address] Nicolas: Hospitalized age 20, and again later -- no procedures so far ([facility], [facility], [address] [facility]) Cancer (HCC) COVID-19 virus infection 10/07/202109/2021 Diverticulosis Dysmenorrhea Hemorrhoids History of blood transfusion Impaired fasting glucose 05/17/2008 Sugar 104 fasting, 04/21 Intractable nausea and vomiting 05/25/2020 Marijuana use 07/10/2020 ER visit 07/06/2020, [place] MIGRAINE 05/17/2008 Has used imitrex with good response; Keeps Vicodin on hand when needed; Ovarian cyst 07/15/2012 Pancreatitis Smoker 05/17/2008 Started age 26, 1/2 a PPD PAST SURGICAL HISTORY Procedure Laterality Date CHOLECYSTECTOMY HX COLONOSCOPY 05/08/2020 poor prep, stool in entire colon, int hemorrhoids, diverticulosis DILATION AND CURETTAGE DXAND/THER NONOBSTETRIC 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, mild esophagitis, 2 cm hiatal hernia EGD W/O BRSH SPEC VARICIES INJ 05/28/2020 LIG/TRNSXJ FLP TUBE ABDL/VAG APPR UNI/BI OOPHORECTOMY PARTIAL/TOTAL UNI/BI 2009 Oophorectomy right, still has left OOPHORECTOMY PARTIAL/TOTAL UNI/BI 01/2015 left removed PAST SURGICAL HISTORY OF uterine ablation PAST SURGICAL HISTORY OF cyst removal TOTAL ABDOMINAL HYSTERECT W/WO RMVL TUBE OVARY 08/31/2006 Hysterectomy, MICHELINE ALLERGIES Aspirin, Penicillins, Cephalexin, Chlorhexidine, Ciprofloxacin, Iodinated Contrast Media, Toradol [Ketorolac], Asa [Salicylates], Contrast Dye [Iodine], Dicyclomine, and Ibuprofen MEDICATIONS cyclobenzaprine (FLEXERIL) 10 mg tablet Take 1 tablet by mouth three times a day as needed. fluticasone-salmeterol (WIXELA INHUB) 500-50 mcg/dose dsdv Inhale 1 Puff as instructed two times a day. fluticasone-salmeterol (WIXELA INHUB) 250-50 mcg/dose inhaler Inhale 1 Puff as instructed two times a day. albuterol HFA (VENTOLIN HFA) 90 mcg/actuation inhaler Inhale 2 Puffs as instructed every 4 hours as needed for wheezing/shortness of breath. Cholecalciferol, Vitamin D3, 50 mcg (2,000 unit) cap Take 1 capsule by mouth once daily. SUMAtriptan (IMITREX STATDOSE PEN) 6 mg/0.5 mL pen Inject 0.5 mL subcutaneously as needed for migraine headache (see administration instructions). May repeat dose after 1 hour if needed. Maximum daily dose is 12 mg per day. pantoprazole DR (PROTONIX) 40 mg tablet Take 1 tablet by mouth daily before breakfast. Take on empty stomach, 1/2 hr before meal. ARIPiprazole (ABILIFY) 10 mg tablet Take 10 mg by mouth once daily. LORazepam (ATIVAN) 0.5 mg Take 0.5 mg by mouth once daily as needed. Mesalamine (LIALDA) 1.2 gram EC tablet Take 1,200 mg by mouth once daily. traZODone (DESYREL) 50 mg tablet Take 50 mg by mouth daily at bedtime. promethazine (PHENERGAN) 25 mg tablet Take 1 tablet by mouth every 8 hours as needed for nausea/vomiting. xmgqzq-hhtgcfeb-mdndelp (CREON 3) 3,000-9,500- 15,000 unit delayed release capsule Take 1 capsule by mouth three times a day with meals. gabapentin (NEURONTIN) 400 mg capsule Take 1 capsule by mouth every 12 hours. diphenhydrAMINE (BENADRYL) 25 mg capsule Take 50 mg by mouth at bedtime as needed. Brompheniramine-Pseudoep h-DM (BROMFED DM) 2-30-10 mg/5 mL syrup Take 5 mL by mouth four times a day as needed. FAMILY HISTORY Problem Relation Age of Onset Thyroid Mother unsure of details Arthritis Mother fibromyalgia Blood Disease Mother blood clots, unsure of details (aorta?) No Known Problems Father (more content not included)... Normal [facility] CNPNon 09-21-2024 CNP Telephone (INTMWS) -------- SALLY VARGAS ([id number]) 1980 F Date Time Provider Department 09/21/24 SILVERIO HALEY INTMWS During your visit today, we recorded the following information about you: Renetta Hernández RN 09/21/2024 10:01 AM Signed Patient calling to request appointment today for evaluation of cough and upper respiratory symptoms that have been ongoing for approximately 1 month. Reports she feels she had a virus around 09/05/24 as well. Reports current sore throat, mild headache, occ cough, soreness in rib areas from coughing and lower back discomfort. Reports mild SOB at rest at times. No severe SOB. Denies fever, chills, chest pain, lightheadedness, dizziness, feeling like passing out, or N/V/D. Appt made with provider for this morning. Patient advised to proceed to the nearest Emergency Room for any severe symptoms as discussed. Renetta Hernández RN Allergies As of Date: 09/21/2024 Noted Allergy Reaction ASPIRIN 05/26/2019 16 - Unknown PENICILLINS 12/07/2009 2 - Rash CEPHALEXIN 10/20/2019 9 - Itching CHLORHEXIDINE 10/29/2016 2 - Rash Comments: Skin rash CIPROFLOXACIN 01/19/2024 2 - Rash Comments: Unclear if the pruritic areas of rash were related to medication or not, no prior use IODINATED CONTRAST MEDIA 02/09/2023 10 - Anaphylaxis TORADOL (KETOROLAC) 05/25/2020 2 - Rash ASA (SALICYLATES) 01/27/2011 14 - Other: See Comments Comments: ulcers CONTRAST DYE (IODINE) 05/17/2008 12 - Shortness of Breath DICYCLOMINE 04/01/2023 4 - Hives IBUPROFEN 06/18/2016 8 - GI Upset Date Reviewed: 06/10/2024 Reviewed by: Brittnee Barraza LPN - Fully Assessed Reason for Visit: Patient Request [[id number]] Prescriptions as of 09/21/2024 - Brompheniramine-Pseudoep h-DM (BROMFED DM) 2-30-10 mg/5 mL syrup Take 5 mL by mouth four times a day as needed. - cyclobenzaprine (FLEXERIL) 10 mg tablet Take 1 tablet by mouth three times a day as needed. - fluticasone-salmeterol (WIXELA INHUB) 500-50 mcg/dose dsdv Inhale 1 Puff as instructed two times a day. - fluticasone-salmeterol (WIXELA INHUB) 250-50 mcg/dose inhaler Inhale 1 Puff as instructed two times a day. - albuterol HFA (VENTOLIN HFA) 90 mcg/actuation inhaler Inhale 2 Puffs as instructed every 4 hours as needed for wheezing/shortness of breath. - Cholecalciferol, Vitamin D3, 50 mcg (2,000 unit) cap Take 1 capsule by mouth once daily. - SUMAtriptan (IMITREX STATDOSE PEN) 6 mg/0.5 mL pen Inject 0.5 mL subcutaneously as needed for migraine headache (see administration instructions). May repeat dose after 1 hour if needed. Maximum daily dose is 12 mg per day. - pantoprazole DR (PROTONIX) 40 mg tablet Take 1 tablet by mouth daily before breakfast. Take on empty stomach, 1/2 hr before meal. - ARIPiprazole (ABILIFY) 10 mg tablet Take 10 mg by mouth once daily. - LORazepam (ATIVAN) 0.5 mg Take 0.5 mg by mouth once daily as needed. - Mesalamine (LIALDA) 1.2 gram EC tablet Take 1,200 mg by mouth once daily. - traZODone (DESYREL) 50 mg tablet Take 50 mg by mouth daily at bedtime. - promethazine (PHENERGAN) 25 mg tablet Take 1 tablet by mouth every 8 hours as needed for nausea/vomiting. - xfxxyb-iofzvxuq-ntqvuio (CREON 3) 3,000-9,500- 15,000 unit delayed release capsule Take 1 capsule by mouth three times a day with meals. - gabapentin (NEURONTIN) 400 mg capsule Take 1 capsule by mouth every 12 hours. - diphenhydrAMINE (BENADRYL) 25 mg capsule Take 50 mg by mouth at bedtime as needed. Problem List As Of Date 09/21/2024 Noted Resolved Routine gynecological examination [Z01.419] 05/17/2008 02/16/2023 Class: Chronic Family history of diabetes mellitus [Z83.3] 05/17/2008 Calculus of kidney [N20.0] 05/17/2008 Allergic rhinitis, cause unspecified [J30.9] 05/17/2008 Migraine without aura [G43.009] 05/17/2008 Cigarette smoker [F17.210] 05/17/2008 Impaired fasting glucose [R73.01] 05/17/2008 12/01/2023 Benign liver cyst [K76.89] 05/24/2010 Class: Chronic Ovarian cyst [N83.209] 07/15/2012 Generalized anxiety disorder [F41.1] 03/31/2016 Reactive depression [F32.9] 03/31/2016 Adjustment insomnia [F51.02] 03/31/2016 Encounter for screening for cardiovascular diso*03/31/2016 02/16/2023 Bilateral low back pain without sciatica [M54.5*06/18/2016 Pain in left hip [M25.552] 06/18/2016 Greater trochanteric bursitis [M70.60] 06/18/2016 Hydronephrosis of left kidney [N13.30] 02/05/2017 Hydroureter on left [N13.4] 02/05/2017 Right facial numbness [R20.0] 02/23/2017 Right upper extremity numbness [R20.0] 02/23/2017 Numbness of right lower extremity [R20.0] 02/23/2017 Weakness of right upper extremity [R29.898] 02/23/2017 Weakness of right lower extremity [R29.898] 02/23/2017 Vision blurred [H53.8] 02/23/2017 Lumbar spine pain [M54.50] 02/23/2017 Cervical spine pain [M54.2] 02/23/2017 Abnormal MRI, lumbar spine [R93.7] (more content not included)... Normal [facility] CBC + DIFFon 09-14-2024 Baso # 0.01 x10EE3/UL Normal 0.00 - 0.10 [facility] Comment on above: Performed By: #### 2 [id number] ####[facility],[address] [place] [address] Basophils/100 WBC (Bld) 0.2 % Normal 0.0 - 2.0 [facility] Comment on above: Performed By: #### 2 [id number] ####[facility],[address] [place] [address] CBC + DIFF Normal [facility] Comment on above: Result Comment: CBC- COMPLETE BLOOD COUNT Performed By: #### 2 [id number] ####[facility],[address] [place] [address] EO # 0.19 x10EE3/UL Normal 0.00 - 0.50 [facility] Comment on above: Performed By: #### 2 [id number] ####[facility],[address] [place], [place] [id number] Eosinophils/100 WBC (Bld) 2.0 % Normal 0.0 - 7.0 [facility] Comment on above: Performed By: #### 2 [id number] ####[facility],[address] [place] [address] Erythrocyte distribution width (RBC) [Ratio] 13.0 % Normal 12.0 - 15.6 [facility] Comment on above: Performed By: #### 2 88769 ####[facility],[address] [place] [address] Hematocrit (Bld) [Volume fraction] 39.3 % Normal 34.0 - 46.0 [facility] Comment on above: Performed By: #### 2 [id number] ####[facility],[address] [place], [place] [id number] Hemoglobin (Bld) [Mass/Vol] 13.5 g/dL Normal 12.0 - 16.0 [facility] Comment on above: Performed By: #### 2 [id number] ####[facility],[address] [place] [address] Lymph # 2.88 x10EE3/UL High 0.80 - 2.80 [facility] Comment on above: Performed By: #### 2 [id number] ####[facility],[address] [place] [address] Lymphocytes/100 WBC (Bld) 30.6 % Normal 20.0 - 45.0 [facility] Comment on above: Performed By: #### 2 [id number] ####[facility],[address] [place] [address] MANUAL DIFF N/A Normal [facility] Comment on above: Performed By: #### 2 [id number] ####[facility],[address] [place] [address] MCH (RBC) [Entitic mass] 30 pg Normal 27 - 33 [facility] Comment on above: Performed By: #### 2 [id number] ####[facility],[address] [place] [address] MCHC 34 X10 3 Normal 32 - 36 [facility] Comment on above: Performed By: #### 2 [id number] ####[facility],[address] [place], [place] [id number] MCV (RBC) [Entitic vol] 88 fL Normal 80 - 99 [facility] Comment on above: Performed By: #### 2 [id number] ####[facility],[address] [place] [address] Pocahontas # 0.50 x10EE3/UL Normal 0.20 - 1.00 [facility] Comment on above: Performed By: #### 2 12793 ####[facility],[address],[place] [address] MONOS % 5.4 % Normal 0.0 - 10.0 [facility] Comment on above: Performed By: #### 2 02737 ####[address] [address] Morphology Adrian (Bld) [Interp] N/A Normal [facility] Comment on above: Performed By: #### 2 15887 ####[facility],[address] [place] [address] 45333 Neut # 5.82 x10EE3/UL Normal 1.50 - 7.10 [facility] Comment on above: Performed By: #### 2 26313 ####[place] [id number] Neutrophils/100 WBC (Bld) 61.9 % Normal 46.0 - 76.0 [facility] Comment on above: Performed By: #### 2 13818 ####[facility],[address] [place], [place] [id number] PLATELET 251 x10EE3/UL Normal 150 - 450 [facility] Comment on above: Performed By: #### 2 21080 ####[place] [address] Platelet mean volume (Bld) [Entitic vol] 7.6 fL Normal 6.6 - 10.5 [facility] Comment on above: Result Comment: AUTO MATED DIFFERENTIAL Performed By: #### 2 97316 ####[facility],[address] [place] [address] 97692 RBC 4.45 x 10EE6/UL Normal 4.10 - 5.30 [facility] Comment on above: Performed By: #### 2 97770 ####[facility],[address] [place] [address] 17049 WBC 9.4 x 10EE3/UL Normal 4.5 - 10.8 [facility] Comment on above: Performed By: #### 2 91341 ####[facility],[address] [place] [address] 30278 CMP with eGFRon 09-14-2024 AGE 44 years Normal [facility] Comment on above: Performed By: #### 2 08748 ####[facility],[address] [place] [address] 96493 Albumin [Mass/Vol] 3.8 g/dL Normal 3.4 - 5.0 [facility] Comment on above: Performed By: #### 2 58751 ####[facility],[address] [place] [address] 46255 Albumin/Globulin [Mass ratio] 1.1 {ratio} Normal 0.9 - 1.6 [facility] Comment on above: Performed By: #### 2 09324 ####[facility],[address] [place] [address] 51154 ALK PHOS 138 U/L High 46 - 116 [facility] Comment on above: Performed By: #### 2 96194 ####[facility],[address] [place] [address] 03125 ALT [Catalytic activity/Vol] 29 U/L Normal 16 - 63 [facility] Comment on above: Performed By: #### 2 15082 ####[facility],[address] [place] [address] 25497 Anion gap [Moles/Vol] 13 mmol/L Normal 10 - 20 [facility] Comment on above: Performed By: #### 2 69012 ####[facility],[address] [place] [address] 30608 AST [Catalytic activity/Vol] 16 U/L Normal 13 - 39 [facility] Comment on above: Performed By: #### 2 88220 ####[facility],[address] [place] [address] 42335 B/C RATIO 16 ratio Normal 0 - 30 [facility] Comment on above: Performed By: #### 2 64579 ####[facility],[address] [place], [place] [address] Bilirubin [Mass/Vol] 0.4 mg/dL Normal 0.2 - 1.0 [facility] Comment on above: Performed By: #### 2 79205 ####[facility],[address] [place] [address] 25746 Calcium [Mass/Vol] 9.0 mg/dL Normal 8.5 - 10.1 [facility] Comment on above: Performed By: #### 2 19599 ####[facility],[address] [place] [address] 76991 Chloride [Moles/Vol] 103 mmol/L Normal 98 - 107 [facility] Comment on above: Performed By: #### 2 62625 ####[facility],[address] [place], [place] [id number] CMP with eGFR Normal [facility] Comment on above: Result Comment: COMP REHENSIVE METABOLIC PANEL Performed By: #### 2 80210 ####[facility],[address] [place] [address] 13000 CO2 [Moles/Vol] 28.4 mmol/L Normal 21.0 - 32.0 [facility] Comment on above: Performed By: #### 2 76538 ####[facility],[address] [place] [address] 66542 Creatinine [Mass/Vol] 0.96 mg/dL Normal 0.55 - 1.02 [facility] Comment on above: Performed By: #### 2 47583 ####[facility],[address] [place] [address] 99102 GFR/1.73 sq M.predicted among non-blacks MDRD (S/P/Bld) [Vol rate/Area] mL/min/{1.73_m2} Normal 60 - 999 [facility] Comment on above: Performed By: #### 2 33119 ####[facility],[address] [place] [address] Result Comment: ACCO RDING TO THE NATIONAL KIDNEY DISEASE EDUCATION PROGRAM(NKDE), A NORMAL eGFRIS A VALUE GREATER THAN OR EQUAL TO 60 ML/MIN/1.73 SQ METERS.CHRONIC KIDNEY DISEASE: <60mL/MIN/1.73 SQ METERSKIDNEY FAILURE: <15mL/MIN/1.73 SQ METERSTHIS TEST SHOULD ONLY BE USED FOR PATIENTS 18 YEARS OF AGE AND OLDER. Globulin (S) [Mass/Vol] 3.6 g/dL Normal 1.5 - 3.8 [facility] Comment on above: Performed By: #### 2 63995 ####[facility],[address] [place] [address] 23646 Glucose [Mass/Vol] 108 mg/dL High 74 - 106 [facility] Comment on above: Performed By: #### 2 86772 ####[facility],[address] [place] [address] 18099 Potassium [Moles/Vol] 3.7 mmol/L Normal 3.5 - 5.1 [facility] Comment on above: Performed By: #### 2 28443 ####[facility],[address] [place] [address] 12764 Protein [Mass/Vol] 7.4 g/dL Normal 6.4 - 8.2 [facility] Comment on above: Performed By: #### 2 68760 ####[facility],[address] [place] [address] 58899 Sodium [Moles/Vol] 141 mmol/L Normal 136 - 145 [facility] Comment on above: Performed By: #### 2 81018 ####[facility],[address] [place] [address] 00752 Urea nitrogen [Mass/Vol] 15 mg/dL Normal 7 - 18 [facility] Comment on above: Performed By: #### 2 52342 ####[facility],[address] [place] [address] 16379 ED MED ADMINISTRATION DETAIL on 09-14-2024 ED MED ADMINISTRATION DETAIL Normal [facility] ED NURSES CLINICAL NOTEon ED NURSES CLINICAL NOTE Normal J oel Replaced By [facility] ED ORDER SHEET (CPOE ONLY)on 09-14-2024 ED ORDER SHEET (CPOE ONLY) Normal [facility] ED PHYSICIAN CLINICAL REPORT on 09-14-2024 ED PHYSICIAN CLINICAL REPORT Normal [facility] ED PHYSICIAN DISCHARGE REPOR Ton 09-14-2024 ED PHYSICIAN DISCHARGE REPORT Normal [facility] ED SUPER BILLon 09-14-2024 ED SUPER BILL Normal [facility] ED VISIT SUMMARYon ED VISIT SUMMARY Normal [facility] ED VITALS FLOW SHEETon 09-14 ED VITALS FLOW SHEET Normal [facility] LIPASEon 09-14-2024 Lipase [Catalytic activity/Vol] 41.0 U/L Normal 15.0 - 78.0 [facility] Comment on above: Result Comment: *PLE ASE NOTE THAT RANGES FOR LIPASE HAVE CHANGED OF 09/11/23 DUE TO AN ASSAYUPDATE BY THE ELECTRONICS REPAIR TECHNICIAN.THE NEW ASSAY RANGE IS 6-250 U/L, WITH A REFERENCERANGE OF 16-77 U/L. Performed By: #### 2 77169 ####[facility],[address] [place] [address] URINALYSISon 09-14-2024 Amorphous NONE Normal [facility] Comment on above: Performed By: #### 2 13121 ####[facility],[address] [place] [address] 53406 Bacteria 1+ Normal [facility] Comment on above: Performed By: #### 2 70251 ####[facility],[address] [place] [address] 82641 Bilirubin Ql (U) Negative Normal NORMAL: NEGATIVE [facility] Comment on above: Performed By: #### 2 77248 ####[facility],[address] [place] [address] 09854 Casts NONE Normal [facility] Comment on above: Performed By: #### 2 81219 ####[facility],[address] [place] [address] Clarity (U) clear Normal NORMAL: CLEAR [facility] Comment on above: Performed By: #### 2 19766 ####[facility],[address] [place] [address] 63637 Color (U) yellow Normal NORMAL: YELLOW [facility] Comment on above: Performed By: #### 2 81960 ####[facility],[address] [place] [address] 18065 Crystals LM Nom (Urine sed) NONE Normal [facility] Comment on above: Performed By: #### 2 38198 ####[facility],[address] [place], [place] [id number] Epi Cells MANY Normal [facility] Comment on above: Performed By: #### 2 42631 ####[facility],[address] [place], [place] [address] Glucose Ql (U) NORM Normal NORMAL: NORMAL [facility] Comment on above: Performed By: #### 2 29641 ####[facility],[address] [place] [address] 53831 Hemoglobin Ql (U) 10 Abnormal NORMAL: NEGATIVE [facility] Comment on above: Performed By: #### 2 50106 ####[facility],[address] [place] [address] 95210 Ketone Negative Normal NORMAL: NEGATIVE [facility] Comment on above: Performed By: #### 2 93243 ####[facility],[address] [place] [address] 95111 Leukocytes Negative Normal NORMAL: NEGATIVE [facility] Comment on above: Performed By: #### 2 40417 ####[facility],[address] [place] [address] 27099 Mucous NONE Normal [facility] Comment on above: Performed By: #### 2 25769 ####[facility],[address] [place] [address] 57512 Nitrite Ql (U) Negative Normal NORMAL: NEGATIVE [facility] Comment on above: Performed By: #### 2 28410 ####[facility],[address] [place] [address] 05267 pH (U) 6 [pH] Normal NORMAL: 5.0-8.0 [facility] Comment on above: Performed By: #### 2 99109 ####[facility],[address] [place] [address] Protein Ql (U) Negative Normal NORMAL: NEGATIVE [facility] Comment on above: Performed By: #### 2 07816 ####[facility],[address] [place] [address] Rbc 0-5 Normal 0-3/hpf [facility] Comment on above: Performed By: #### 2 80649 ####[facility],[address] [place] [address] Sp [place] 1.015 Normal NORMAL: 1.010-1.030 [facility] Comment on above: Performed By: #### 2 39557 ####[facility],[address] [place] [address] Specimen Type R Normal [facility] Comment on above: Performed By: #### 2 44653 ####[facility],[address] [place], [place] [address] Urinalysis dipstick W Reflex Microscopic panel (U) SEE BELOW Normal [facility] Comment on above: Result Comment: MICR OSCOPIC Performed By: #### 2 65227 ####[facility],[address] [place] [address] 13616 Urobilinog NORM Normal NORMAL: NORMAL [facility] Comment on above: Performed By: #### 2 89000 ####[facility],[address] [place] [address] 32108 Wbc NONE Normal 0-5/hpf [facility] Comment on above: Performed By: #### 2 54580 ####[facility],[address] [place] [address] 83056 Yeast NONE Normal [facility] Comment on above: Performed By: #### 2 07807 ####[facility],[address] [place] [address] 92364 CNPCarly 08-29-2024 CNPN Telephone (INTMWS) -------- SALLY VARGAS ([id number]) 1980 F Date Time Provider Department 08/29/24 SILVERIO HALEY INTMWS During your visit today, we recorded the following information about you: Lexy Desouza LPN 08/29/2024 11:24 AM Signed Pt called in to geta virtual apt with Dr. Haley. Pt has a cough that is persisting along with congestion, sore throat and chills. Symptoms going on for 1 week. Pt offered apt and declines. She is insisting on a virtual apt. Pt reports she can not drive and transportation is an issue. Pt hurting in ribs from so much coughing. Denies, fever, loss of smell or taste, abdomen pain, chest pain, shortness of breath. Pt reports Dr. Haley knows her and her situation and pt wants something called in. Virtual apt booked for 08-30-24 with provider/team. Please advise pt. Lexy Desouza LPN 08/31/2024 10:16 AM Signed Pt cancelled apt. I called to see if she needed to reschedule and she reports no does not need to reschedule. Lexy Desouza LPN Allergies As of Date: 08/29/2024 Noted Allergy Reaction ASPIRIN 05/26/2019 16 - Unknown PENICILLINS 12/07/2009 2 - Rash CEPHALEXIN 10/20/2019 9 - Itching CHLORHEXIDINE 10/29/2016 2 - Rash Comments: Skin rash CIPROFLOXACIN 01/19/2024 2 - Rash Comments: Unclear if the pruritic areas of rash were related to medication or not, no prior use IODINATED CONTRAST MEDIA 02/09/2023 10 - Anaphylaxis TORADOL (KETOROLAC) 05/25/2020 2 - Rash ASA (SALICYLATES) 01/27/2011 14 - Other: See Comments Comments: ulcers CONTRAST DYE (IODINE) 05/17/2008 12 - Shortness of Breath DICYCLOMINE 04/01/2023 4 - Hives IBUPROFEN 06/18/2016 8 - GI Upset Date Reviewed: 06/10/2024 Reviewed by: Brittnee Barraza LPN - Fully Assessed Reason for Visit: Future Appointment [256] Prescriptions as of 08/31/2024 - Brompheniramine-Pseudoep h-DM (BROMFED DM) 2-30-10 mg/5 mL syrup Take 5 mL by mouth four times a day as needed. - cyclobenzaprine (FLEXERIL) 10 mg tablet Take 1 tablet by mouth three times a day as needed. - fluticasone-salmeterol (WIXELA INHUB) 500-50 mcg/dose dsdv Inhale 1 Puff as instructed two times a day. - fluticasone-salmeterol (WIXELA INHUB) 250-50 mcg/dose inhaler Inhale 1 Puff as instructed two times a day. - albuterol HFA (VENTOLIN HFA) 90 mcg/actuation inhaler Inhale 2 Puffs as instructed every 4 hours as needed for wheezing/shortness of breath. - Cholecalciferol, Vitamin D3, 50 mcg (2,000 unit) cap Take 1 capsule by mouth once daily. - SUMAtriptan (IMITREX STATDOSE PEN) 6 mg/0.5 mL pen Inject 0.5 mL subcutaneously as needed for migraine headache (see administration instructions). May repeat dose after 1 hour if needed. Maximum daily dose is 12 mg per day. - pantoprazole DR (PROTONIX) 40 mg tablet Take 1 tablet by mouth daily before breakfast. Take on empty stomach, 1/2 hr before meal. - ARIPiprazole (ABILIFY) 10 mg tablet Take 10 mg by mouth once daily. - LORazepam (ATIVAN) 0.5 mg Take 0.5 mg by mouth once daily as needed. - Mesalamine (LIALDA) 1.2 gram EC tablet Take 1,200 mg by mouth once daily. - traZODone (DESYREL) 50 mg tablet Take 50 mg by mouth daily at bedtime. - promethazine (PHENERGAN) 25 mg tablet Take 1 tablet by mouth every 8 hours as needed for nausea/vomiting. - pwkgth-xcwagnqt-jfytkdo (CREON 3) 3,000-9,500- 15,000 unit delayed release capsule Take 1 capsule by mouth three times a day with meals. - gabapentin (NEURONTIN) 400 mg capsule Take 1 capsule by mouth every 12 hours. - diphenhydrAMINE (BENADRYL) 25 mg capsule Take 50 mg by mouth at bedtime as needed. Problem List As Of Date 08/29/2024 Noted Resolved Routine gynecological examination [Z01.419] 05/17/2008 02/16/2023 Class: Chronic Family history of diabetes mellitus [Z83.3] 05/17/2008 Calculus of kidney [N20.0] 05/17/2008 Allergic rhinitis, cause unspecified [J30.9] 05/17/2008 Migraine without aura [G43.009] 05/17/2008 Cigarette smoker [F17.210] 05/17/2008 Impaired fasting glucose [R73.01] 05/17/2008 12/01/2023 Benign liver cyst [K76.89] 05/24/2010 Class: Chronic Ovarian cyst [N83.209] 07/15/2012 Generalized anxiety disorder [F41.1] 03/31/2016 Reactive depression [F32.9] 03/31/2016 Adjustment insomnia [F51.02] 03/31/2016 Encounter for screening for cardiovascular diso*03/31/2016 02/16/2023 Bilateral low back pain without sciatica [M54.5*06/18/2016 Pain in left hip [M25.552] 06/18/2016 Greater trochanteric bursitis [M70.60] 06/18/2016 Hydronephrosis of left kidney [N13.30] 02/05/2017 Hydroureter on left [N13.4] 02/05/2017 Right facial numbness [R20.0] 02/23/2017 Right upper extremity numbness [R20.0] 02/23/2017 Numbness of right lower extremity [R20.0] 02/23/2017 Weakness of right upper extremity [R29.898] 02/23/2017 Weakness of right lower extremity [R29.898] 02/23/2017 Vision blurred [H53. (more content not included)... Normal [facility] CNPNon 08-22-2024 CNPN Telephone (INTMWS) -------- SALLY VARGAS ([id number]) 1980 F Date Time Provider Department 08/22/24 SILVERIO HALEY INTMWS During your visit today, we recorded the following information about you: Paradise Haley RN 08/22/2024 1:05 PM Signed Patient calls and states that her bottom lip has been blue since Thursday. Advised patient that if her bottom lip is blue then she needs to go to ER to be evaluated as to why her bottom lip is blue. Patient asking if Dr. Haley has a virtual visit for this. Advised patient that Dr. Haley currently is out and that she needs to go to ED if her bottom lip is blue. Patient was seen at [facility] ER on 08/21/2024 for back pain. No mention of lower blue lips in ER notes. Please review and advise, VIN Townsend Terri, CAR ATTENDANT.ORE WASHER 08/22/2024 4:55 PM Signed Noted agree, if signs of hypoxia should go to ER. Kristen Andrade LPN 08/22/2024 5:31 PM Signed Patient notified of providers recommendations and verbalized understanding. Patient declines ER visit. She states they are not blue at this time but will schedule an appointment if blue lips returns Allergies As of Date: 08/22/2024 Noted Allergy Reaction ASPIRIN 05/26/2019 16 - Unknown PENICILLINS 12/07/2009 2 - Rash CEPHALEXIN 10/20/2019 9 - Itching CHLORHEXIDINE 10/29/2016 2 - Rash Comments: Skin rash CIPROFLOXACIN 01/19/2024 2 - Rash Comments: Unclear if the pruritic areas of rash were related to medication or not, no prior use IODINATED CONTRAST MEDIA 02/09/2023 10 - Anaphylaxis TORADOL (KETOROLAC) 05/25/2020 2 - Rash ASA (SALICYLATES) 01/27/2011 14 - Other: See Comments Comments: ulcers CONTRAST DYE (IODINE) 05/17/2008 12 - Shortness of Breath DICYCLOMINE 04/01/2023 4 - Hives IBUPROFEN 06/18/2016 8 - GI Upset Date Reviewed: 06/10/2024 Reviewed by: Brittnee Barraza LPN - Fully Assessed Reason for Visit: Patient Update [1234] Prescriptions as of 08/22/2024 - Brompheniramine-Pseudoep h-DM (BROMFED DM) 2-30-10 mg/5 mL syrup Take 5 mL by mouth four times a day as needed. - cyclobenzaprine (FLEXERIL) 10 mg tablet Take 1 tablet by mouth three times a day as needed. - fluticasone-salmeterol (WIXELA INHUB) 500-50 mcg/dose dsdv Inhale 1 Puff as instructed two times a day. - fluticasone-salmeterol (WIXELA INHUB) 250-50 mcg/dose inhaler Inhale 1 Puff as instructed two times a day. - albuterol HFA (VENTOLIN HFA) 90 mcg/actuation inhaler Inhale 2 Puffs as instructed every 4 hours as needed for wheezing/shortness of breath. - Cholecalciferol, Vitamin D3, 50 mcg (2,000 unit) cap Take 1 capsule by mouth once daily. - SUMAtriptan (IMITREX STATDOSE PEN) 6 mg/0.5 mL pen Inject 0.5 mL subcutaneously as needed for migraine headache (see administration instructions). May repeat dose after 1 hour if needed. Maximum daily dose is 12 mg per day. - pantoprazole DR (PROTONIX) 40 mg tablet Take 1 tablet by mouth daily before breakfast. Take on empty stomach, 1/2 hr before meal. - ARIPiprazole (ABILIFY) 10 mg tablet Take 10 mg by mouth once daily. - LORazepam (ATIVAN) 0.5 mg Take 0.5 mg by mouth once daily as needed. - Mesalamine (LIALDA) 1.2 gram EC tablet Take 1,200 mg by mouth once daily. - traZODone (DESYREL) 50 mg tablet Take 50 mg by mouth daily at bedtime. - promethazine (PHENERGAN) 25 mg tablet Take 1 tablet by mouth every 8 hours as needed for nausea/vomiting. - vnqvvw-srvuaanc-hspxzsq (CREON 3) 3,000-9,500- 15,000 unit delayed release capsule Take 1 capsule by mouth three times a day with meals. - gabapentin (NEURONTIN) 400 mg capsule Take 1 capsule by mouth every 12 hours. - diphenhydrAMINE (BENADRYL) 25 mg capsule Take 50 mg by mouth at bedtime as needed. Problem List As Of Date 08/22/2024 Noted Resolved Routine gynecological examination [Z01.419] 05/17/2008 02/16/2023 Class: Chronic Family history of diabetes mellitus [Z83.3] 05/17/2008 Calculus of kidney [N20.0] 05/17/2008 Allergic rhinitis, cause unspecified [J30.9] 05/17/2008 Migraine without aura [G43.009] 05/17/2008 Cigarette smoker [F17.210] 05/17/2008 Impaired fasting glucose [R73.01] 05/17/2008 12/01/2023 Benign liver cyst [K76.89] 05/24/2010 Class: Chronic Ovarian cyst [N83.209] 07/15/2012 Generalized anxiety disorder [F41.1] 03/31/2016 Reactive depression [F32.9] 03/31/2016 Adjustment insomnia [F51.02] 03/31/2016 Encounter for screening for cardiovascular diso*03/31/2016 02/16/2023 Bilateral low back pain without sciatica [M54.5*06/18/2016 Pain in left hip [M25.552] 06/18/2016 Greater trochanteric bursitis [M70.60] 06/18/2016 Hydronephrosis of left kidney [N13.30] 02/05/2017 Hydroureter on left [N13.4] 02/05/2017 Right facial numbness [R20.0] 02/23/2017 Right upper extremity numbness [R20.0] 02/23/2017 Numbness of right lower extremity [R20.0] 02/23/2017 Weakness of right upper extremity [ (more content not included)... Normal [facility] Emergency Department Summary on 08-21-2024 Emergency Department Summary Normal [facility] Lumbar Spine 2 or 3 Viewson 08-21-2024 Lumbar Spine 2 or 3 Views Normal [facility] CNOVon 07-28-2024 CNOV Office Visit (UCWSTR ) -------- SALLY VARGAS ([id number]) 1980 F Date Time Provider Department 07/28/24 7:00 PM HOLLY FRAGA WSTR During your visit today, we recorded the following information about you: Temperature Pulse Respiration Blood pressure 98.5 degrees 96/minute 20/minute 116/78 Weight 90 kg Jonathan Bruce APRN.CLASSROOM TEACHER 07/28/2024 7:15 PM Signed CC: Patient presents with: Cough: Persistent coughing x 1 month HPI: Sally Vargas is a 43 year old female who presents to the office with complaint of cough, nonproductive for a month. Symptoms are staying the same. Associated symptoms includes cough. Denies fever, nausea, vomiting , and diarrhea. Treatments tried include nothing so far. with no relief of symptoms. Sick contacts: unknown. History of asthma, frequent episodes of bronchitis, chronic bronchitis, bronchiectasis or COPD: Yes asthma Smoker: Yes Seasonal/environmental allergies: No The ROS is otherwise negative. The patient's pmh, medications, allergies, and past visits are reviewed. PHYSICAL EXAM: BP 116/78 Pulse 96 Temp 36.9 ?C (98.5 ?F) Resp 20 Wt 90 kg (198 lb 6.6 oz) LMP 08/10/2006 SpO2 97% BMI 36.98 kg/m? General appearance: alert, cooperative, pleasant, in no acute distress Head: Normocephalic Eyes: EOM's intact, conjunctiva pink and moist, no icterus, sclera white, non-injected Ears: Right ear: External ear/canal- Normal, TM - clear with good landmarks. Left ear: External ear/canal- Normal, TM - clear with good landmarks Oropharynx:moist without lesions, No erythema, exudates or tonsillar hypertrophy. Heart: Negative. RRR without obvious murmur, gallop, or rubs. No ectopy. Lungs: clear to auscultation, without rales or wheeze, good air exchange PAST MEDICAL HISTORY Diagnosis Date Allergic rhinitis, cause unspecified 05/17/2008 Spring and summer Benign liver cyst 05/24/2010 CT scan at [facility] 11/2009 and 04/2010 showe 4 mm increase in size. No pain. No elevated LFTs on 03/11/2010. Calculus of kidney 05/17/[address] Nicolas: Hospitalized age 20, and again later -- no procedures so far ([facility], [facility], 1995 [facility]) Cancer (HCC) COVID-19 virus infection 10/07/202109/2021 Diverticulosis Dysmenorrhea Hemorrhoids History of blood transfusion Impaired fasting glucose 05/17/2008 Sugar 104 fasting, 04/21 Intractable nausea and vomiting 05/25/2020 Marijuana use 07/10/2020 ER visit 07/06/2020, [place] MIGRAINE 05/17/2008 Has used imitrex with good response; Keeps Vicodin on hand when needed; Ovarian cyst 07/15/2012 Pancreatitis Smoker 05/17/2008 Started age 26, 1/2 a PPD PAST SURGICAL HISTORY Procedure Laterality Date CHOLECYSTECTOMY HX COLONOSCOPY 05/08/2020 poor prep, stool in entire colon, int hemorrhoids, diverticulosis DILATION AND CURETTAGE DXAND/THER NONOBSTETRIC 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, mild esophagitis, 2 cm hiatal hernia EGD W/O BRSH SPEC VARICIES INJ 05/28/2020 LIG/TRNSXJ FLP TUBE ABDL/VAG APPR UNI/BI OOPHORECTOMY PARTIAL/TOTAL UNI/BI 2009 Oophorectomy right, still has left OOPHORECTOMY PARTIAL/TOTAL UNI/BI 01/2015 left removed PAST SURGICAL HISTORY OF uterine ablation PAST SURGICAL HISTORY OF cyst removal TOTAL ABDOMINAL HYSTERECT W/WO RMVL TUBE OVARY 08/31/2006 Hysterectomy, MICHELINE ALLERGIES Aspirin, Penicillins, Cephalexin, Chlorhexidine, Ciprofloxacin, Iodinated Contrast Media, Toradol [Ketorolac], Asa [Salicylates], Contrast Dye [Iodine], Dicyclomine, and Ibuprofen MEDICATIONS cyclobenzaprine (FLEXERIL) 10 mg tablet Take 1 tablet by mouth three times a day as needed. fluticasone-salmeterol (WIXELA INHUB) 500-50 mcg/dose dsdv Inhale 1 Puff as instructed two times a day. albuterol HFA (VENTOLIN HFA) 90 mcg/actuation inhaler Inhale 2 Puffs as instructed every 4 hours as needed for wheezing/shortness of breath. Cholecalciferol, Vitamin D3, 50 mcg (2,000 unit) cap Take 1 capsule by mouth once daily. SUMAtriptan (IMITREX STATDOSE PEN) 6 mg/0.5 mL pen Inject 0.5 mL subcutaneously as needed for migraine headache (see administration instructions). May repeat dose after 1 hour if needed. Maximum daily dose is 12 mg per day. pantoprazole DR (PROTONIX) 40 mg tablet Take 1 tablet by mouth daily before breakfast. Take on empty stomach, 1/2 hr before meal. ARIPiprazole (ABILIFY) 10 mg tablet Take 10 mg by mouth once daily. LORazepam (ATIVAN) 0.5 mg Take 0.5 mg by mouth once daily as needed. Mesalamine (LIALDA) 1.2 gram EC tablet Take 1,200 mg by mouth once daily. traZODone (DESYREL) 50 mg tablet Take 50 mg by mouth daily at bedtime. promethazine (PHENERGAN) 25 mg tablet Take 1 tablet by mouth every 8 hours as needed for nausea/vomiting. zlvnwo-ocnggupw-khitqst (CREON 3) 3,000-9,500- 15,000 unit delayed release capsule Take 1 capsule by mouth three times a day wi (more content not included)... [facility] (INTWS) -------- SALLY VARGAS ([id number]) 1980 F Date Time Provider Department 07/28/24 SILVERIO HALEY INTTOÑITO During your visit today, we recorded the following information about you: Ivanna Torre RN 07/28/2024 4:30 PM Signed Patient calls to report that pharmacy won't fill hydrocodone cough medicine. Call placed to [facility] and spoke to Oh who reports there is an issue with the NPI number for provider. Insurance won't allow the fill as they don't have information on file. Oh said he sent something to prescriber as well. VIN Hood M Robin, RN 07/28/2024 4:34 PM Signed Patient phoned upset she cannot get the cough medicine. Reports she hasn't slept in 2 days d/t cough. Asking if Gretchen can get the number straightened out soon. See message below- a problem with NPI Kristen Andrade LPN 07/28/2024 4:56 PM Signed Attempted to contact pharmacy regarding problem with NPI number for provider but they are not answering, had to leave a voice mail and ask to call back MEME as patient is needing her prescription filled today Kristen Andrade LPN 07/28/2024 5:18 PM Signed Patient is very upset and crying routed to Dr. Cleaning to see if her would ordering since Gretchen is not able. From triage: [facility] Pharmacy called back. I tried to help but they says they have Gretchen's NPI and CARLOS number but their system is telling them it is not registered with Medicaid. They said they need to talk to Terri. Casiano. Robbin Hernandez MD 07/28/2024 6:09 PM Signed Patient's request for medication has been refused. See reason and notify patient. Requested Prescriptions Refused Prescriptions Disp Refills HYDROcodone-homatropine (HYCODAN, WITH HOMATROPINE,) 5-1.5 mg/5 mL syrup 210 mL 0 Sig: Take 5 mL by mouth every 4 hours as needed for cough for up to 7 days. Refused By: ROBBIN HERNANDEZ Reason for Refusal: A Refill not appropriate Schedule with PCP IN THE OFFICE for evaluation of ongoing cough. Merillat, Jesica, MA 07/28/2024 6:17 PM Signed Spoke to patient and advised provider note below. Patient declined appointment said she will just deal with the coughing and ended call. Jesica Baker MA Allergies As of Date: 07/28/2024 Noted Allergy Reaction ASPIRIN 05/26/2019 16 - Unknown PENICILLINS 12/07/2009 2 - Rash CEPHALEXIN 10/20/2019 9 - Itching CHLORHEXIDINE 10/29/2016 2 - Rash Comments: Skin rash CIPROFLOXACIN 01/19/2024 2 - Rash Comments: Unclear if the pruritic areas of rash were related to medication or not, no prior use IODINATED CONTRAST MEDIA 02/09/2023 10 - Anaphylaxis TORADOL (KETOROLAC) 05/25/2020 2 - Rash ASA (SALICYLATES) 01/27/2011 14 - Other: See Comments Comments: ulcers CONTRAST DYE (IODINE) 05/17/2008 12 - Shortness of Breath DICYCLOMINE 04/01/2023 4 - Hives IBUPROFEN 06/18/2016 8 - GI Upset Date Reviewed: 06/10/2024 Reviewed by: Brittnee Barraza LPN - Fully Assessed Reason for Visit: Medication Problem [65] Visit Diagnosis:Acute asthmatic bronchitis [J45.909] Prescriptions as of 07/28/2024 - HYDROcodone-homatropine (HYCODAN, WITH HOMATROPINE,) 5-1.5 mg/5 mL syrup Take 5 mL by mouth every 4 hours as needed for cough for up to 7 days. - cyclobenzaprine (FLEXERIL) 10 mg tablet Take 1 tablet by mouth three times a day as needed. - fluticasone-salmeterol (WIXELA INHUB) 500-50 mcg/dose dsdv Inhale 1 Puff as instructed two times a day. - fluticasone-salmeterol (WIXELA INHUB) 250-50 mcg/dose inhaler Inhale 1 Puff as instructed two times a day. - albuterol HFA (VENTOLIN HFA) 90 mcg/actuation inhaler Inhale 2 Puffs as instructed every 4 hours as needed for wheezing/shortness of breath. - Cholecalciferol, Vitamin D3, 50 mcg (2,000 unit) cap Take 1 capsule by mouth once daily. - SUMAtriptan (IMITREX STATDOSE PEN) 6 mg/0.5 mL pen Inject 0.5 mL subcutaneously as needed for migraine headache (see administration instructions). May repeat dose after 1 hour if needed. Maximum daily dose is 12 mg per day. - pantoprazole DR (PROTONIX) 40 mg tablet Take 1 tablet by mouth daily before breakfast. Take on empty stomach, 1/2 hr before meal. - ARIPiprazole (ABILIFY) 10 mg tablet Take 10 mg by mouth once daily. - hyoscyamine sulfate 0.125 mg ODT Take 0.125 mg by mouth every 4 hours. - LORazepam (ATIVAN) 0.5 mg Take 0.5 mg by mouth once daily as needed. - Mesalamine (LIALDA) 1.2 gram EC tablet Take 1,200 mg by mouth once daily. - traZODone (DESYREL) 50 mg tablet Take 50 mg by mouth daily at bedtime. - Psyllium Seed-Sucrose (METAMUCIL, SUGAR,) Take per package directions - promethazine (PHENERGAN) 25 mg tablet Take 1 tablet by mouth every 8 hours as needed for nausea/vomiting. - pjachc-hbjxxtud-gsslikt (CREON 3) 3,000-9,500- 15,000 unit delayed release capsule Take 1 capsule by mouth three times a day with meals. - g (more content not included)... Normal [facility] XR CHEST 2V FRONTAL/LATon XR CHEST 2V FRONTAL/LAT * * *Final Repor t* * * DATE OF EXAM: Jul 28 2024 7:20PM WOX [id number] - XR CHEST 2V FRONTAL/LAT / PROCEDURE REASON: Acute cough * * * * Physician Interpretation * * * * EXAMINATION: CHEST RADIOGRAPH (2 VIEW FRONTAL and LATERAL) CLINICAL HISTORY: Acute cough MQ: XC2_6 EXAM DATE/TIME: 07/28/2024 7:20 PM COMPARISON: 12/16/2023 RESULT: Lines, tubes, and devices: N/A Lungs and pleura: No focal infiltrates or pleural effusions. No pneumothorax. Cardiomediastinal silhouette: Stable cardiomediastinal silhouette. Bones and soft tissues: The bony thorax is intact. Other: Surgical clips in the right upper quadrant of the abdomen. IMPRESSION: No acute radiographic abnormality. Physical Therapy Nurse: PSCB Transcribe Date/Time: Jul 28 2024 7:35P Dictated by : KUN HALEY MD This examination was interpreted and the report reviewed and electronically signed by: KUN HALEY MD on Jul 28 2024 7:36PM EST [id number] Normal [facility] XR Chest PA and Lateralon IMPRESSION: No acute radiographic abnormality. Physical Therapy Nurse: PSCB Transcribe Date/Time: Jul 28 2024 7:35P Dictated by : KUN HALEY MD This examination was interpreted and the report reviewed and electronically signed by: KUN HALEY MD on Jul 28 2024 7:36PM EST DIVISION OF RADIOLOGY * * *Final Report* * * DATE OF EXAM: Jul 28 2024 7:20PM WOX [id number] - XR CHEST 2V FRONTAL/LAT / PROCEDURE REASON: Acute cough * * * * Physician Interpretation * * * * EXAMINATION: CHEST RADIOGRAPH (2 VIEW FRONTAL & LATERAL) CLINICAL HISTORY: Acute cough MQ: XC2_6 EXAM DATE/TIME: 07/28/2024 7:20 PM COMPARISON: 12/16/2023 RESULT: Lines, tubes, and devices: N/A Lungs and pleura: No focal infiltrates or pleural effusions. No pneumothorax. Cardiomediastinal silhouette: Stable cardiomediastinal silhouette. Bones and soft tissues: The bony thorax is intact. Other: Surgical clips in the right upper quadrant of the abdomen. DIVISION OF RADIOLOGY Provider, [facility] - 07/28/2024 * * *Final Report* * * DATE OF EXAM: Jul 28 2024 7:20PM WOX [id number] - XR CHEST 2V FRONTAL/LAT / PROCEDURE REASON: Acute cough * * * * Physician Interpretation * * * * EXAMINATION: CHEST RADIOGRAPH (2 VIEW FRONTAL & LATERAL) CLINICAL HISTORY: Acute cough MQ: XC2_6 EXAM DATE/TIME: 07/28/2024 7:20 PM COMPARISON: 12/16/2023 RESULT: Lines, tubes, and devices: N/A Lungs and pleura: No focal infiltrates or pleural effusions. No pneumothorax. Cardiomediastinal silhouette: Stable cardiomediastinal silhouette. Bones and soft tissues: The bony thorax is intact. Other: Surgical clips in the right upper quadrant of the abdomen. IMPRESSION IMPRESSION: No acute radiographic abnormality. Physical Therapy Nurse: PSCB Transcribe Date/Time: Jul 28 2024 7:35P Dictated by : KUN HALEY MD This examination was interpreted and the report reviewed and electronically signed by: KUN HALEY MD on Jul 28 2024 7:36PM EST [facility] Radiology Study observation (narrative) Melissa oliver [facility] XR Chest PA and LateralOrder ed By: [facility] Provider on 07-28-2024 [facility] CNPNon 07-19-2024 CNPN Telephone (INTMWS) -------- SALLY VARGAS ([id number]) 1980 F Date Time Provider Department 07/19/24 SILVERIO HALEY INTMWS During your visit today, we recorded the following information about you: Paradise Haley RN 07/19/2024 12:03 PM Signed Patient calls and states that she had a bad migraine last night. Patient reports that she gave herself a sumatriptan injection which usually works. Patient states that injection did not work. Patient states that her head began pounding really bad. Patient states that she took a couple of Gabapentin which did not help at all. Patient states that she has nausea and has vomited due to headache. Patient states that she had talked to a friend who had told her that muscle relaxants might help. Patient is asking if provider can prescribe her some muscle relaxants for the headache that she has. Patient had requested a virtual appointment with provider. Please review and advise, VIN Townsend Liza D, MD 07/19/2024 8:38 PM Signed There is an opening 07/20 at 10/40. Can discuss muscle relaxant then and whether to add Sallie Benitez LPN 07/20/2024 7:30 AM Signed Appointment scheduled 07/20/24 at 10:40. Detailed message left for patient. Allergies As of Date: 07/19/2024 Noted Allergy Reaction ASPIRIN 05/26/2019 16 - Unknown PENICILLINS 12/07/2009 2 - Rash CEPHALEXIN 10/20/2019 9 - Itching CHLORHEXIDINE 10/29/2016 2 - Rash Comments: Skin rash CIPROFLOXACIN 01/19/2024 2 - Rash Comments: Unclear if the pruritic areas of rash were related to medication or not, no prior use IODINATED CONTRAST MEDIA 02/09/2023 10 - Anaphylaxis TORADOL (KETOROLAC) 05/25/2020 2 - Rash ASA (SALICYLATES) 01/27/2011 14 - Other: See Comments Comments: ulcers CONTRAST DYE (IODINE) 05/17/2008 12 - Shortness of Breath DICYCLOMINE 04/01/2023 4 - Hives IBUPROFEN 06/18/2016 8 - GI Upset Date Reviewed: 06/10/2024 Reviewed by: Brittnee Barraza LPN - Fully Assessed Reason for Visit: Patient Update [1234] Prescriptions as of 07/20/2024 - fluticasone-salmeterol (WIXELA INHUB) 500-50 mcg/dose dsdv Inhale 1 Puff as instructed two times a day. - fluticasone-salmeterol (WIXELA INHUB) 250-50 mcg/dose inhaler Inhale 1 Puff as instructed two times a day. - albuterol HFA (VENTOLIN HFA) 90 mcg/actuation inhaler Inhale 2 Puffs as instructed every 4 hours as needed for wheezing/shortness of breath. - Cholecalciferol, Vitamin D3, 50 mcg (2,000 unit) cap Take 1 capsule by mouth once daily. - SUMAtriptan (IMITREX STATDOSE PEN) 6 mg/0.5 mL pen Inject 0.5 mL subcutaneously as needed for migraine headache (see administration instructions). May repeat dose after 1 hour if needed. Maximum daily dose is 12 mg per day. - pantoprazole DR (PROTONIX) 40 mg tablet Take 1 tablet by mouth daily before breakfast. Take on empty stomach, 1/2 hr before meal. - ARIPiprazole (ABILIFY) 10 mg tablet Take 10 mg by mouth once daily. - hyoscyamine sulfate 0.125 mg ODT Take 0.125 mg by mouth every 4 hours. - LORazepam (ATIVAN) 0.5 mg Take 0.5 mg by mouth once daily as needed. - Mesalamine (LIALDA) 1.2 gram EC tablet Take 1,200 mg by mouth once daily. - traZODone (DESYREL) 50 mg tablet Take 50 mg by mouth daily at bedtime. - Psyllium Seed-Sucrose (METAMUCIL, SUGAR,) Take per package directions - promethazine (PHENERGAN) 25 mg tablet Take 1 tablet by mouth every 8 hours as needed for nausea/vomiting. - gzwpva-wfnxgqvu-piegljf (CREON 3) 3,000-9,500- 15,000 unit delayed release capsule Take 1 capsule by mouth three times a day with meals. - gabapentin (NEURONTIN) 400 mg capsule Take 1 capsule by mouth every 12 hours. - diphenhydrAMINE (BENADRYL) 25 mg capsule Take 50 mg by mouth at bedtime as needed. Problem List As Of Date 07/19/2024 Noted Resolved Routine gynecological examination [Z01.419] 05/17/2008 02/16/2023 Class: Chronic Family history of diabetes mellitus [Z83.3] 05/17/2008 Calculus of kidney [N20.0] 05/17/2008 Allergic rhinitis, cause unspecified [J30.9] 05/17/2008 Migraine without aura [G43.009] 05/17/2008 Cigarette smoker [F17.210] 05/17/2008 Impaired fasting glucose [R73.01] 05/17/2008 12/01/2023 Benign liver cyst [K76.89] 05/24/2010 Class: Chronic Ovarian cyst [N83.209] 07/15/2012 Generalized anxiety disorder [F41.1] 03/31/2016 Reactive depression [F32.9] 03/31/2016 Adjustment insomnia [F51.02] 03/31/2016 Encounter for screening for cardiovascular diso*03/31/2016 02/16/2023 Bilateral low back pain without sciatica [M54.5*06/18/2016 Pain in left hip [M25.552] 06/18/2016 Greater trochanteric bursitis [M70.60] 06/18/2016 Hydronephrosis of left kidney [N13.30] 02/05/2017 Hydroureter on left [N13.4] 02/05/2017 Right facial numbness [R20.0] 02/23/2017 Right upper extremity numbness [R20.0] 02/23/2017 Numbness of right lower extremity [R20.0] 02/23/2017 (more content not included)... Normal [facility] ED MED ADMINISTRATION DETAIL on 07-17-2024 ED MED ADMINISTRATION DETAIL Normal [facility] ED NURSES CLINICAL NOTEon ED NURSES CLINICAL NOTE Normal [facility] ED ORDER SHEET (CPOE ONLY)on 07-17-2024 ED ORDER SHEET (CPOE ONLY) Normal [facility] ED PHYSICIAN CLINICAL REPORT on 07-17-2024 ED PHYSICIAN CLINICAL REPORT Normal [facility] ED PHYSICIAN DISCHARGE REPOR Ton 07-17-2024 ED PHYSICIAN DISCHARGE REPORT Normal [facility] ED SUPER BILLon 07-17-2024 ED SUPER BILL Normal [facility] ED VISIT SUMMARYon ED VISIT SUMMARY Normal [facility] ED VITALS FLOW SHEETon 07-17 ED VITALS FLOW SHEET Normal [facility] CBC + DIFFon 07-15-2024 Baso # 0.01 x10EE3/UL Normal 0.00 - 0.10 [facility] Comment on above: Performed By: #### 2 [id number] ####[facility],[address] [place] [address] Basophils/100 WBC (Bld) 0.1 % Normal 0.0 - 2.0 [facility] Comment on above: Performed By: #### 2 23397 ####[facility],[address] [place] [address] CBC + DIFF Normal [facility] Comment on above: Result Comment: CBC- COMPLETE BLOOD COUNT Performed By: #### 2 16784 ####[facility],[address] [place] [address] EO # 0.30 x10EE3/UL Normal 0.00 - 0.50 [facility] Comment on above: Performed By: #### 2 05451 ####[facility],[address] [place] [address]37 Eosinophils/100 WBC (Bld) 3.4 % Normal 0.0 - 7.0 [facility] Comment on above: Performed By: #### 2 34859 ####[facility],[address] [place], [place] [id number] Erythrocyte distribution width (RBC) [Ratio] 12.9 % Normal 12.0 - 15.6 [facility] Comment on above: Performed By: #### 2 56924 ####[facility],[address] [place] [address]853 Hematocrit (Bld) [Volume fraction] 41.5 % Normal 34.0 - 46.0 [facility] Comment on above: Performed By: #### 2 33839 ####[place] [address] Hemoglobin (Bld) [Mass/Vol] 13.9 g/dL Normal 12.0 - 16.0 [facility] Comment on above: Performed By: #### 2 59291 ####[facility],[address] [place] [address] 35185 Lymph # 4.27 x10EE3/UL High 0.80 - 2.80 [facility] Comment on above: Performed By: #### 2 78584 ####[facility],[address] [place] [address]805 Lymphocytes/100 WBC (Bld) 48.3 % High 20.0 - 45.0 [facility] Comment on above: Performed By: #### 2 43079 ####[address] [address] MANUAL DIFF N/A Normal [facility] Comment on above: Performed By: #### 2 17419 ####[address] [address] MCH (RBC) [Entitic mass] 30 pg Normal 27 - 33 [facility] Comment on above: Performed By: #### 2 72929 ####[facility],[address] [place] [address] 11561 MCHC 34 X10 3 Normal 32 - 36 [facility] Comment on above: Performed By: #### 2 86021 ####[facility],[address] [place] [address]88 MCV (RBC) [Entitic vol] 89 fL Normal 80 - 99 [facility] Comment on above: Performed By: #### 2 18776 ####[facility],[address] [place] [address]21 [place] # 0.62 x10EE3/UL Normal 0.20 - 1.00 [facility] Comment on above: Performed By: #### 2 47009 ####[facility],[address] [place] [address] 12147 MONOS % 7.0 % Normal 0.0 - 10.0 [facility] Comment on above: Performed By: #### 2 48337 ####[facility],[address] [place] [address] 36878 Morphology Adrian (Bld) [Interp] N/A Normal [facility] Comment on above: Performed By: #### 2 15940 ####[facility],[address] [place] [address] 53877 Neut # 3.65 x10EE3/UL Normal 1.50 - 7.10 [facility] Comment on above: Performed By: #### 2 37364 ####[facility],[address] [place] [address] 49418 Neutrophils/100 WBC (Bld) 41.3 % Low 46.0 - 76.0 [facility] Comment on above: Performed By: #### 2 73137 ####[facility],[address] [place] [address] 01912 PLATELET 258 x10EE3/UL Normal 150 - 450 [facility] Comment on above: Performed By: #### 2 91217 ####[facility],[address] [place] [address]291 Platelet mean volume (Bld) [Entitic vol] 7.9 fL Normal 6.6 - 10.5 [facility] Comment on above: Result Comment: AUTO MATED DIFFERENTIAL Performed By: #### 2 54754 ####[facility],[address] [place], [place] [id number] RBC 4.66 x 10EE6/UL Normal 4.10 - 5.30 [facility] Comment on above: Performed By: #### 2 79368 ####[facility],[address] [place], [place] [address] WBC 8.9 x 10EE3/UL Normal 4.5 - 10.8 [facility] Comment on above: Performed By: #### 2 27037 ####[facility],[address] [place], [place] [id number] CMP with eGFRon 07-15-2024 AGE 43 years Normal [facility] Comment on above: Performed By: #### 2 32936 ####[facility],[address] [place], [place] [id number] Albumin [Mass/Vol] 4.2 g/dL Normal 3.4 - 5.0 [facility] Comment on above: Performed By: #### 2 44556 ####[facility],[address] [place], [place] [address] Albumin/Globulin [Mass ratio] 1.1 {ratio} Normal 0.9 - 1.6 [facility] Comment on above: Performed By: #### 2 26269 ####[facility],[address] [place] [address] 58155 ALK PHOS 133 U/L High 46 - 116 [facility] Comment on above: Performed By: #### 2 69099 ####[facility],[address] [place], [place] [id number] ALT [Catalytic activity/Vol] 24 U/L Normal 16 - 63 [facility] Comment on above: Performed By: #### 2 94578 ####[facility],[address] [place] [address] 84825 Anion gap [Moles/Vol] 16 mmol/L Normal 10 - 20 [facility] Comment on above: Performed By: #### 2 53112 ####[facility],[address] [place] [address] AST [Catalytic activity/Vol] 15 U/L Normal 13 - 39 [facility] Comment on above: Performed By: #### 2 66991 ####[facility],[address] [place], [place] [id number] B/C RATIO 11 ratio Normal 0 - 30 [facility] Comment on above: Performed By: #### 2 97827 ####[facility],[address] [place] [address] 30075 Bilirubin [Mass/Vol] 0.5 mg/dL Normal 0.2 - 1.0 [facility] Comment on above: Performed By: #### 2 85803 ####[facility],[address] [place] [address] 76638 Calcium [Mass/Vol] 9.4 mg/dL Normal 8.5 - 10.1 [facility] Comment on above: Performed By: #### 2 70193 ####[facility],[address] [place] [address] 29238 Chloride [Moles/Vol] 105 mmol/L Normal 98 - 107 [facility] Comment on above: Performed By: #### 2 15588 ####[facility],[address] [place] [address] 68708 CMP with eGFR Normal [facility] Comment on above: Result Comment: COMP REHENSIVE METABOLIC PANEL Performed By: #### 2 14213 ####[facility],[address] [place] [address] 52915 CO2 [Moles/Vol] 24.7 mmol/L Normal 21.0 - 32.0 [facility] Comment on above: Performed By: #### 2 18329 ####[facility],[address] [place] [address]80 Creatinine [Mass/Vol] 1.22 mg/dL High 0.55 - 1.02 [facility] Comment on above: Performed By: #### 2 58611 ####[facility] [facility],[address] [place] [address] 69056 eGFR 48 ML/MINUTE Low 60 - 999 [facility] Comment on above: Performed By: #### 2 97284 ####[address] [address] eGFR(AA) 58 ML/MINUTE Low 60 - 999 [facility] Comment on above: Result Comment: ACCO RDING TO THE NATIONAL KIDNEY DISEASE EDUCATION PROGRAM(NKDE), A NORMAL eGFRIS A VALUE GREATER THAN OR EQUAL TO 60 ML/MIN/1.73 SQ METERS.CHRONIC KIDNEY DISEASE: <60mL/MIN/1.73 SQ METERSKIDNEY FAILURE: <15mL/MIN/1.73 SQ METERSTHIS TEST SHOULD ONLY BE USED FOR PATIENTS 18 YEARS OF AGE AND OLDER. Performed By: #### 2 82346 ####[facility],[address] [place] [address] 99059 Globulin (S) [Mass/Vol] 3.7 g/dL Normal 1.5 - 3.8 [facility] Comment on above: Performed By: #### 2 85069 ####[facility],[address] [place] [address] 16148 Glucose [Mass/Vol] 124 mg/dL High 74 - 106 [facility] Comment on above: Performed By: #### 2 83008 ####[facility],[address] [place] [address] 60908 Potassium [Moles/Vol] 3.4 mmol/L Low 3.5 - 5.1 [facility] Comment on above: Performed By: #### 2 46985 ####[facility],[address] [place] [address] 88418 Protein [Mass/Vol] 7.9 g/dL Normal 6.4 - 8.2 [facility] Comment on above: Performed By: #### 2 25031 ####[facility],[address] [place] [address] 45030 Sodium [Moles/Vol] 142 mmol/L Normal 136 - 145 [facility] Comment on above: Performed By: #### 2 48328 ####[address] [address] Urea nitrogen [Mass/Vol] 14 mg/dL Normal 7 - 18 [facility] Comment on above: Performed By: #### 2 13579 ####[address] [address] LIPASEon 07-15-2024 Lipase [Catalytic activity/Vol] 66.0 U/L Normal 15.0 - 78.0 [facility] Comment on above: Result Comment: *PLE ASE NOTE THAT RANGES FOR LIPASE HAVE CHANGED OF 09/11/23 DUE TO AN ASSAYUPDATE BY THE ELECTRONICS REPAIR TECHNICIAN.THE NEW ASSAY RANGE IS 6-250 U/L, WITH A REFERENCERANGE OF 16-77 U/L. Performed By: #### 2 17139 ####[facility],[address] [place] [address] 12443 URINALYSISon 07-15-2024 Amorphous NONE Normal [facility] Comment on above: Performed By: #### 2 78898 ####[address] [address] Bacteria 3+ Normal [facility] Comment on above: Performed By: #### 2 27650 ####[address] [address] Bilirubin Ql (U) Negative Normal NORMAL: NEGATIVE [facility] Comment on above: Performed By: #### 2 91263 ####[facility],[address] [place] [address] 06543 Calcium Ox 1+ Normal NORMAL: NONE [facility] Comment on above: Performed By: #### 2 30962 ####[facility],[address] [place], [place] [address] Casts NONE Normal [facility] Comment on above: Performed By: #### 2 01926 ####[facility],[address] [place], [place] [address] Clarity (U) clear Normal NORMAL: CLEAR [facility] Comment on above: Performed By: #### 2 00523 ####[facility],[address] [place] [address] Color (U) yellow Normal NORMAL: YELLOW [facility] Comment on above: Performed By: #### 2 87373 ####[facility],[address] [place] [address] Crystals LM Nom (Urine sed) SEE BELOW Normal [facility] Comment on above: Performed By: #### 2 20806 ####[facility],[address] [place], [place] [address] Epi Cells MODERATE Normal [facility] Comment on above: Performed By: #### 2 28149 ####[facility],[address] [place] [address] 71347 Glucose Ql (U) NORM Normal NORMAL: NORMAL [facility] Comment on above: Performed By: #### 2 01490 ####[facility],[address] [place] [address]9526 Hemoglobin Ql (U) 50 Abnormal NORMAL: NEGATIVE [facility] Comment on above: Performed By: #### 2 93366 ####[facility],[address] [place] [address] 14052 Ketone Negative Normal NORMAL: NEGATIVE [facility] Comment on above: Performed By: #### 2 42214 ####[facility],[address] [place], [place] [address] Leukocytes Negative Normal NORMAL: NEGATIVE [facility] Comment on above: Performed By: #### 2 87168 ####[facility],[address] [place] [address] Mucous 2+ Normal [facility] Comment on above: Performed By: #### 2 01798 ####[facility],[address] [place] [address] Nitrite Ql (U) Negative Normal NORMAL: NEGATIVE [facility] Comment on above: Performed By: #### 2 38947 ####[facility],[address] [place] [address] pH (U) 5 [pH] Normal NORMAL: 5.0-8.0 [facility] Comment on above: Performed By: #### 2 05257 ####[facility],[address] [place] [address] Protein Ql (U) 15 Abnormal NORMAL: NEGATIVE [facility] Comment on above: Performed By: #### 2 90240 ####[facility],[address] [place] [address] Rbc 0-5 Normal 0-3/hpf [facility] Comment on above: Performed By: #### 2 54376 ####[facility],[address] [place] [address] Sp [place] 1.030 Normal NORMAL: 1.010-1.030 [facility] Comment on above: Performed By: #### 2 69435 ####[facility],[address] [place] [address] Specimen Type UNSPECIFIED Normal [facility] Comment on above: Performed By: #### 2 85045 ####[facility],[address] [place] [address] Urinalysis dipstick W Reflex Microscopic panel (U) SEE BELOW Normal [facility] Comment on above: Result Comment: MICR OSCOPIC Performed By: #### 2 42402 ####[facility],[address] [place] [address] Urobilinog NORM Normal NORMAL: NORMAL [facility] Comment on above: Performed By: #### 2 87613 ####[facility],[address] [place], [place] [address] Wbc 1-5 Normal 0-5/hpf [facility] Comment on above: Performed By: #### 2 22804 ####[facility],[address] [place] [address] Yeast NONE Normal [facility] Comment on above: Performed By: #### 2 09874 ####[facility],[address] [place] [address] ED FACILITY CODING SUMMARYon 07-03-2024 ED FACILITY CODING SUMMARY Normal [facility] ED MED ADMINISTRATION DETAIL on 07-03-2024 ED MED ADMINISTRATION DETAIL Normal [facility] ED NURSES CLINICAL NOTEon ED NURSES CLINICAL NOTE Normal [facility] ED ORDER SHEET (CPOE ONLY)on 07-03-2024 ED ORDER SHEET (CPOE ONLY) Normal [facility] ED PHYS CODING ABST SUMMARYo n 07-03-2024 ED PHYS CODING ABST SUMMARY Normal [facility] ED PHYSICIAN CLINICAL REPORT on 07-03-2024 ED PHYSICIAN CLINICAL REPORT Normal [facility] ED PHYSICIAN DISCHARGE REPOR Ton 07-03-2024 ED PHYSICIAN DISCHARGE REPORT Normal [facility] ED SUPER BILLon 07-03-2024 ED SUPER BILL Normal [facility] ED VISIT SUMMARYon ED VISIT SUMMARY Normal [facility] CBC + DIFFon 07-02-2024 Baso # 0.01 x10EE3/UL Normal 0.00 - 0.10 [facility] Comment on above: Performed By: #### 2 19088 ####[facility],[address] [place] [address] Basophils/100 WBC (Bld) 0.3 % Normal 0.0 - 2.0 [facility] Comment on above: Performed By: #### 2 19853 ####[facility],[address] [place] [address] 17695 CBC + DIFF Normal [facility] Comment on above: Result Comment: CBC- COMPLETE BLOOD COUNT Performed By: #### 2 93742 ####[facility],[address] [place] [address] 16186 EO # 0.22 x10EE3/UL Normal 0.00 - 0.50 [facility] Comment on above: Performed By: #### 2 30758 ####[facility],[address] [place] [address]337 Eosinophils/100 WBC (Bld) 4.0 % Normal 0.0 - 7.0 [facility] Comment on above: Performed By: #### 2 90265 ####[facility],[address] [place] [address] Erythrocyte distribution width (RBC) [Ratio] 13.0 % Normal 12.0 - 15.6 [facility] Comment on above: Performed By: #### 2 35927 ####[facility],[address] [place], [place] [address] Hematocrit (Bld) [Volume fraction] 41.9 % Normal 34.0 - 46.0 [facility] Comment on above: Performed By: #### 2 50014 ####[facility],[address] [place] [address]11 Hemoglobin (Bld) [Mass/Vol] 13.9 g/dL Normal 12.0 - 16.0 [facility] Comment on above: Performed By: #### 2 51820 ####[facility],[address] [place] [address] Lymph # 2.24 x10EE3/UL Normal 0.80 - 2.80 [facility] Comment on above: Performed By: #### 2 02260 ####[facility],[address] [place] [address]8895 Lymphocytes/100 WBC (Bld) 40.7 % Normal 20.0 - 45.0 [facility] Comment on above: Performed By: #### 2 69462 ####[facility],[address] [place] [address] MANUAL DIFF N/A Normal [facility] Comment on above: Performed By: #### 2 14731 ####[facility],[address] [place] [address] MCH (RBC) [Entitic mass] 30 pg Normal 27 - 33 [facility] Comment on above: Performed By: #### 2 56185 ####[facility],[address] [place] [address] MCHC 33 X10 3 Normal 32 - 36 [facility] Comment on above: Performed By: #### 2 40172 ####[place] [address] MCV (RBC) [Entitic vol] 89 fL Normal 80 - 99 [facility] Comment on above: Performed By: #### 2 15230 ####[facility],[address] [place] [address] [place] # 0.34 x10EE3/UL Normal 0.20 - 1.00 [facility] Comment on above: Performed By: #### 2 96764 ####[facility],[address] [place] [address] MONOS % 6.3 % Normal 0.0 - 10.0 [facility] Comment on above: Performed By: #### 2 16603 ####[place] [id number] Morphology Adrian (Bld) [Interp] N/A Normal [facility] Comment on above: Performed By: #### 2 62107 ####[facility],[address] [place] [address] Neut # 2.69 x10EE3/UL Normal 1.50 - 7.10 [facility] Comment on above: Performed By: #### 2 56146 ####[facility],[address] [place] [address]3295 Neutrophils/100 WBC (Bld) 48.8 % Normal 46.0 - 76.0 [facility] Comment on above: Performed By: #### 2 85988 ####[facility],[address] [place], [place] [address] PLATELET 245 x10EE3/UL Normal 150 - 450 [facility] Comment on above: Performed By: #### 2 22761 ####[place] [address] Platelet mean volume (Bld) [Entitic vol] 7.3 fL Normal 6.6 - 10.5 [facility] Comment on above: Result Comment: AUTO MATED DIFFERENTIAL Performed By: #### 2 00627 ####[place] [address] RBC 4.70 x 10EE6/UL Normal 4.10 - 5.30 [facility] Comment on above: Performed By: #### 2 51844 ####[place] [id number] WBC 5.5 x 10EE3/UL Normal 4.5 - 10.8 [facility] Comment on above: Performed By: #### 2 38202 ####[place] [id number] CMP with eGFRon 07-02-2024 AGE 43 years Normal [facility] Comment on above: Performed By: #### 2 43285 ####[place] [id number] Albumin [Mass/Vol] 3.8 g/dL Normal 3.4 - 5.0 [facility] Comment on above: Performed By: #### 2 04767 ####[place] [id number] Albumin/Globulin [Mass ratio] 1.0 {ratio} Normal 0.9 - 1.6 [facility] Comment on above: Performed By: #### 2 94747 ####[facility],[address] [place] [address] 10461 ALK PHOS 110 U/L Normal 46 - 116 [facility] Comment on above: Performed By: #### 2 26979 ####[facility],[address] [place], [place] [address] ALT [Catalytic activity/Vol] 27 U/L Normal 16 - 63 [facility] Comment on above: Performed By: #### 2 28478 ####[facility],[address] [place] [address] Anion gap [Moles/Vol] 11 mmol/L Normal 10 - 20 [facility] Comment on above: Performed By: #### 2 55447 ####[facility],[address] [place] [address] AST [Catalytic activity/Vol] 19 U/L Normal 13 - 39 [facility] Comment on above: Performed By: #### 2 21447 ####[facility],[address] [place] [address] 49523 B/C RATIO 5 ratio Normal 0 - 30 [facility] Comment on above: Performed By: #### 2 34655 ####[facility],[address] [place] [address] 42185 Bilirubin [Mass/Vol] 0.8 mg/dL Normal 0.2 - 1.0 [facility] Comment on above: Performed By: #### 2 88354 ####[address] [address] Calcium [Mass/Vol] 9.0 mg/dL Normal 8.5 - 10.1 [facility] Comment on above: Performed By: #### 2 97642 ####[facility],[address] [place] [address]32 Chloride [Moles/Vol] 103 mmol/L Normal 98 - 107 [facility] Comment on above: Performed By: #### 2 83228 ####[facility],[address] [place], [place] [address] CMP with eGFR Normal [facility] Comment on above: Result Comment: COMP REHENSIVE METABOLIC PANEL Performed By: #### 2 74045 ####[facility],[address] [place] [address] CO2 [Moles/Vol] 29.4 mmol/L Normal 21.0 - 32.0 [facility] Comment on above: Performed By: #### 2 13783 ####[facility],[address] [place] [address] Creatinine [Mass/Vol] 1.30 mg/dL High 0.55 - 1.02 [facility] Comment on above: Performed By: #### 2 31755 ####[facility],[address] [place] [address] eGFR 44 ML/MINUTE Low 60 - 999 [facility] Comment on above: Performed By: #### 2 61134 ####[facility],[address] [place] [address] eGFR(AA) 54 ML/MINUTE Low 60 - 999 [facility] Comment on above: Result Comment: ACCO RDING TO THE NATIONAL KIDNEY DISEASE EDUCATION PROGRAM(NKDE), A NORMAL eGFRIS A VALUE GREATER THAN OR EQUAL TO 60 ML/MIN/1.73 SQ METERS.CHRONIC KIDNEY DISEASE: <60mL/MIN/1.73 SQ METERSKIDNEY FAILURE: <15mL/MIN/1.73 SQ METERSTHIS TEST SHOULD ONLY BE USED FOR PATIENTS 18 YEARS OF AGE AND OLDER. Performed By: #### 2 78383 ####[facility],[address] [place], [place] [address] Globulin (S) [Mass/Vol] 4.0 g/dL High 1.5 - 3.8 [facility] Comment on above: Performed By: #### 2 19636 ####[facility],[address] [place] [address]2339 Glucose [Mass/Vol] 92 mg/dL Normal 74 - 106 [facility] Comment on above: Performed By: #### 2 04862 ####[facility],[address] [place] [address] 10179 Potassium [Moles/Vol] 3.7 mmol/L Normal 3.5 - 5.1 [facility] Comment on above: Performed By: #### 2 57447 ####[facility],[address] [place] [address] 92875 Protein [Mass/Vol] 7.8 g/dL Normal 6.4 - 8.2 [facility] Comment on above: Performed By: #### 2 80172 ####[address] [address] Sodium [Moles/Vol] 140 mmol/L Normal 136 - 145 [facility] Comment on above: Performed By: #### 2 63704 ####[facility],[address] [place], [place] [address] Urea nitrogen [Mass/Vol] 7 mg/dL Normal 7 - 18 [facility] Comment on above: Performed By: #### 2 80779 ####[place] [id number] LIPASEon 07-02-2024 Lipase [Catalytic activity/Vol] 24.0 U/L Normal 15.0 - 78.0 [facility] Comment on above: Result Comment: *PLE ASE NOTE THAT RANGES FOR LIPASE HAVE CHANGED OF 09/11/23 DUE TO AN ASSAYUPDATE BY THE ELECTRONICS REPAIR TECHNICIAN.THE NEW ASSAY RANGE IS 6-250 U/L, WITH A REFERENCERANGE OF 16-77 U/L. Performed By: #### 2 17536 ####[place] [id number] URINALYSISon 07-02-2024 Bilirubin Ql (U) Negative Normal NORMAL: NEGATIVE [facility] Comment on above: Performed By: #### 2 90110 ####[facility],[address] [place] [address]1994 Clarity (U) clear Normal NORMAL: CLEAR [facility] Comment on above: Performed By: #### 2 68083 ####[facility],[address] [place] [address] 29860 Color (U) yellow Normal NORMAL: YELLOW [facility] Comment on above: Performed By: #### 2 43316 ####[facility],[address] [place] [address] 50527 Glucose Ql (U) NORM Normal NORMAL: NORMAL [facility] Comment on above: Performed By: #### 2 19246 ####[facility],[address] [place] [address] 59301 Hemoglobin Ql (U) Negative Normal NORMAL: NEGATIVE [facility] Comment on above: Performed By: #### 2 60320 ####[facility],[address] [place] [address] 44626 Ketone Negative Normal NORMAL: NEGATIVE [facility] Comment on above: Performed By: #### 2 35840 ####[facility],[address] [place] [address] 60380 Leukocytes Negative Normal NORMAL: NEGATIVE [facility] Comment on above: Performed By: #### 2 74659 ####[facility],[address] [place] [address] 66951 Nitrite Ql (U) Negative Normal NORMAL: NEGATIVE [facility] Comment on above: Performed By: #### 2 06538 ####[facility],[address] [place] [address] 07879 pH (U) 6.5 [pH] Normal NORMAL: 5.0-8.0 [facility] Comment on above: Performed By: #### 2 48548 ####[facility],[address] [place] [address] 78925 Protein Ql (U) Negative Normal NORMAL: NEGATIVE [facility] Comment on above: Performed By: #### 2 98115 ####[facility],[address] [place] [address] Sp [place] 1.015 Normal NORMAL: 1.010-1.030 [facility] Comment on above: Performed By: #### 2 53701 ####[facility],[address] [place] [address] Specimen Type R Normal [facility] Comment on above: Performed By: #### 2 98043 ####[facility],[address] [place] [address] Urinalysis dipstick W Reflex Microscopic panel (U) NOT INDICATED Normal [facility] Comment on above: Performed By: #### 2 13449 ####[facility],[address] [place] [address] Urobilinog NORM Normal NORMAL: NORMAL [facility] Comment on above: Performed By: #### 2 18488 ####[facility],[address] [place] [address] [place] [facility] SALLY VARGAS ([id number]) 1980 F Date Time Provider Department 06/28/24 SILVERIO HALEY [facility] During your visit today, we recorded the following information about you: Renetta Hernández RN 06/28/2024 4:43 PM Signed Patient reports her hydrocodone-homatropine cough syrup was last ordered for the dates of 06/21/24 to 06/28/24 and she has 1 dose left and will be out. New hydrocodone-homatropine cough syrup prescription is to start on 06/30/24. Patient asking if the date on the new prescription can be changed to 06/29/24? Please call patient with update at [phone]. Thank you. Ivanna Torre RN 06/28/2024 4:49 PM Signed See previous TE. Medication to be filled on 06/30/2024 as previously ordered. Ivanna Torre RN Allergies As of Date: 06/28/2024 Noted Allergy Reaction ASPIRIN 05/26/2019 16 - Unknown PENICILLINS 12/07/2009 2 - Rash CEPHALEXIN 10/20/2019 9 - Itching CHLORHEXIDINE 10/29/2016 2 - Rash Comments: Skin rash CIPROFLOXACIN 01/19/2024 2 - Rash Comments: Unclear if the pruritic areas of rash were related to medication or not, no prior use IODINATED CONTRAST MEDIA 02/09/2023 10 - Anaphylaxis TORADOL (KETOROLAC) 05/25/2020 2 - Rash ASA (SALICYLATES) 01/27/2011 14 - Other: See Comments Comments: ulcers CONTRAST DYE (IODINE) 05/17/2008 12 - Shortness of Breath DICYCLOMINE 04/01/2023 4 - Hives IBUPROFEN 06/18/2016 8 - GI Upset Date Reviewed: 06/10/2024 Reviewed by: Brittnee Barraza LPN - Fully Assessed Reason for Visit: Refill Request [94] Prescriptions as of 06/28/2024 - HYDROcodone-homatropine (HYCODAN, WITH HOMATROPINE,) 5-1.5 mg/5 mL syrup Take 5 mL by mouth every 4 hours as needed for cough for up to 7 days. Patient should start on June 30, 2024. - fluticasone-salmeterol (WIXELA INHUB) 250-50 mcg/dose inhaler Inhale 1 Puff as instructed two times a day. - albuterol HFA (VENTOLIN HFA) 90 mcg/actuation inhaler Inhale 2 Puffs as instructed every 4 hours as needed for wheezing/shortness of breath. - Cholecalciferol, Vitamin D3, 50 mcg (2,000 unit) cap Take 1 capsule by mouth once daily. - Leg Brace (ANKLE BRACE) misc For left ankle. - SUMAtriptan (IMITREX STATDOSE PEN) 6 mg/0.5 mL pen Inject 0.5 mL subcutaneously as needed for migraine headache (see administration instructions). May repeat dose after 1 hour if needed. Maximum daily dose is 12 mg per day. - pantoprazole DR (PROTONIX) 40 mg tablet Take 1 tablet by mouth daily before breakfast. Take on empty stomach, 1/2 hr before meal. - ARIPiprazole (ABILIFY) 10 mg tablet Take 10 mg by mouth once daily. - hyoscyamine sulfate 0.125 mg ODT Take 0.125 mg by mouth every 4 hours. - LORazepam (ATIVAN) 0.5 mg Take 0.5 mg by mouth once daily as needed. - Mesalamine (LIALDA) 1.2 gram EC tablet Take 1,200 mg by mouth once daily. - traZODone (DESYREL) 50 mg tablet Take 50 mg by mouth daily at bedtime. - cetirizine (ZYRTEC) 10 mg tablet Take 1 tablet by mouth once daily. for itching. - Psyllium Seed-Sucrose (METAMUCIL, SUGAR,) Take per package directions - promethazine (PHENERGAN) 25 mg tablet Take 1 tablet by mouth every 8 hours as needed for nausea/vomiting. - zaivts-cnsdqmon-olhohtc (CREON 3) 3,000-9,500- 15,000 unit delayed release capsule Take 1 capsule by mouth three times a day with meals. - gabapentin (NEURONTIN) 400 mg capsule Take 1 capsule by mouth every 12 hours. - cyanocobalamin (VITAMIN B-12) 1,000 mcg tab Take 1 tablet by mouth once daily. - diphenhydrAMINE (BENADRYL) 25 mg capsule Take 50 mg by mouth at bedtime as needed. Problem List As Of Date 06/28/2024 Noted Resolved Routine gynecological examination [Z01.419] 05/17/2008 02/16/2023 Class: Chronic Family history of diabetes mellitus [Z83.3] 05/17/2008 Calculus of kidney [N20.0] 05/17/2008 Allergic rhinitis, cause unspecified [J30.9] 05/17/2008 Migraine without aura [G43.009] 05/17/2008 Cigarette smoker [F17.210] 05/17/2008 Impaired fasting glucose [R73.01] 05/17/2008 12/01/2023 Benign liver cyst [K76.89] 05/24/2010 Class: Chronic Ovarian cyst [N83.209] 07/15/2012 Generalized anxiety disorder [F41.1] 03/31/2016 Reactive depression [F32.9] 03/31/2016 Adjustment insomnia [F51.02] 03/31/2016 Encounter for screening for cardiovascular diso*03/31/2016 02/16/2023 Bilateral low back pain without sciatica [M54.5*06/18/2016 Pain in left hip [M25.552] 06/18/2016 Greater trochanteric bursitis [M70.60] 06/18/2016 Hydronephrosis of left kidney [N13.30] 02/05/2017 Hydroureter on left [N13.4] 02/05/2017 Right facial numbness [R20.0] 02/23/2017 Right upper extremity numbness [R20.0] 02/23/2017 Numbness of right lower extremity [R20.0] 02/23/2017 Weakness of right upper extremity [R29.898] 02/23/2017 Weakness of right lower extremity [R29.898] 02/23/2017 Vision blurred [H53.8] 02/24/20 (more content not included)... [facility] -------- SALLY VARGAS ([id number]) 1980 F Date Time Provider Department 06/27/[facility] During your visit today, we recorded the following information about you: Edwina Tatum LPN 06/27/2024 4:21 PM Signed Pt had appt : 06/21/24. Pt calls to report her cough is not getting much better. Pt feels cough syrup is helping some but she is about out of medication. Pt reports she has been taking cough syrup as directed. Pt is asking if she can have a refill on Hycodan with Homatropine cough syrup. Pt has no other complaints. Call pt with 's message. Whit Guardado LPN 06/28/2024 10:24 AM Signed Patient calling back to check status of request. she uses [facility] for her pharmacy. Edwina Tatum LPN 06/28/2024 12:35 PM Signed Pt called back in to check on status of rx. DAVID Chairez Stephanie, RN 06/28/2024 1:53 PM Signed Patient calls to see the status of prescription request. VIN Townsend Sue E, LPN 06/28/2024 3:14 PM Signed Made copy of TE and placed on Urgent clipboard to bring to PCP attention. DAVID Torrez Sue E, LPN 06/28/2024 3:37 PM Signed Patient aware PCP to address. DAVID Torrez Liza D, MD 06/28/2024 3:45 PM Signed RX to last 7 days May fill when due for refilling on The following approved medication requests have been transmitted electronically. Requested Prescriptions Signed Prescriptions Disp Refills HYDROcodone-homatropine (HYCODAN, WITH HOMATROPINE,) 5-1.5 mg/5 mL syrup 210 mL 0 Sig: Take 5 mL by mouth every 4 hours as needed for cough for up to 7 days. Patient should start on June 30, 2024. Authorizing Provider: SILVERIO HALEY MD McCullough, Krystle, RN 06/28/2024 4:48 PM Signed Patient returns call and notified of below. Patient verbalizes understanding. Aware prescription can be picked up on 06/30/2024. Ivanna Torre RN Allergies As of Date: 06/27/2024 Noted Allergy Reaction ASPIRIN 05/26/2019 16 - Unknown PENICILLINS 12/07/2009 2 - Rash CEPHALEXIN 10/20/2019 9 - Itching CHLORHEXIDINE 10/29/2016 2 - Rash Comments: Skin rash CIPROFLOXACIN 01/19/2024 2 - Rash Comments: Unclear if the pruritic areas of rash were related to medication or not, no prior use IODINATED CONTRAST MEDIA 02/09/2023 10 - Anaphylaxis TORADOL (KETOROLAC) 05/25/2020 2 - Rash ASA (SALICYLATES) 01/27/2011 14 - Other: See Comments Comments: ulcers CONTRAST DYE (IODINE) 05/17/2008 12 - Shortness of Breath DICYCLOMINE 04/01/2023 4 - Hives IBUPROFEN 06/18/2016 8 - GI Upset Date Reviewed: 06/10/2024 Reviewed by: Brittnee Barraza LPN - Fully Assessed Reason for Visit: Cough [28] Visit Diagnosis:Acute asthmatic bronchitis [J45.909] Order(s):[START ON 06/30/2024] HYDROcodone-homatropine (HYCODAN, WITH HOMATROPINE,) 5-1.5 mg/5 mL syrupTake 5 mL by mouth every 4 hours as needed for cough for up to 7 days. Patient should start on June 30, 2024.Disp: 210 mLRfl: 0 Prescriptions as of 06/28/2024 - HYDROcodone-homatropine (HYCODAN, WITH HOMATROPINE,) 5-1.5 mg/5 mL syrup Take 5 mL by mouth every 4 hours as needed for cough for up to 7 days. Patient should start on June 30, 2024. - fluticasone-salmeterol (WIXELA INHUB) 250-50 mcg/dose inhaler Inhale 1 Puff as instructed two times a day. - albuterol HFA (VENTOLIN HFA) 90 mcg/actuation inhaler Inhale 2 Puffs as instructed every 4 hours as needed for wheezing/shortness of breath. - Cholecalciferol, Vitamin D3, 50 mcg (2,000 unit) cap Take 1 capsule by mouth once daily. - Leg Brace (ANKLE BRACE) misc For left ankle. - SUMAtriptan (IMITREX STATDOSE PEN) 6 mg/0.5 mL pen Inject 0.5 mL subcutaneously as needed for migraine headache (see administration instructions). May repeat dose after 1 hour if needed. Maximum daily dose is 12 mg per day. - pantoprazole DR (PROTONIX) 40 mg tablet Take 1 tablet by mouth daily before breakfast. Take on empty stomach, 1/2 hr before meal. - ARIPiprazole (ABILIFY) 10 mg tablet Take 10 mg by mouth once daily. - hyoscyamine sulfate 0.125 mg ODT Take 0.125 mg by mouth every 4 hours. - LORazepam (ATIVAN) 0.5 mg Take 0.5 mg by mouth once daily as needed. - Mesalamine (LIALDA) 1.2 gram EC tablet Take 1,200 mg by mouth once daily. - traZODone (DESYREL) 50 mg tablet Take 50 mg by mouth daily at bedtime. - cetirizine (ZYRTEC) 10 mg tablet Take 1 tablet by mouth once daily. for itching. - Psyllium Seed-Sucrose (METAMUCIL, SUGAR,) Take per package directions - promethazine (PHENERGAN) 25 mg tablet Take 1 tablet by mouth every 8 hours as needed for nausea/vomiting. - fpooxo-zqxqcopr-kbrfwwu (CREON 3) 3,000-9,500- 15,000 unit delayed release capsule Take 1 capsule by mouth three times a day with meals. - gabapentin (NEURONTIN) 400 mg (more content not included)... Normal [facility] 06-20-2024 [facility] -------- SALLY VARGAS ([id number]) 1980 F Date Time Provider Department 06/20/24 GRETCHEN NEWTON [facility] During your visit today, we recorded the following information about you: Edwina Tatum LPN 06/20/2024 2:48 PM Signed Pt had a video appt on 06/16/24 for cough, chest congestion. Pt was prescribed: Zpak - finished yesterday Prednisone-finished today Codeine-guaifenesin cough syrup-pt reports it does not help with cough or sleep Abulterol inhaler-helps with the wheezing. Pt reports she still has a lot of chest congestion and cough. Pt reports she only got three hours of sleep last night because of coughing. Pt reports she has tried taking Mucinex to see if that helps but it is not. Pt is asking if she needs more atb or if there is a different/stronger cough medicine that she could be prescribed so she could get some sleep. Pt denies fever and SOB. Please review and advise. DAVID Chairez Terri, APRN.ORE WASHER 06/20/2024 3:11 PM Signed If she is not currently using albuterol inhaler every 6 hours would recommend doing so. Can add benzonatate to current medications. She has had 2 virtual visits for upper respiratory infection. She may want to come in to be checked in the office. Paradise Haley RN 06/20/2024 3:34 PM Signed Patient calls back and notified of below. Patient states that she needs cough medicine with benadryl. Patient reports that she is allergic to benzonatate. Patient states that she has been using inhaler every 4 hours and it has not helped. Advised patient that she needs to be seen in office so that she can be evaluated there. Patient states that she cannot come into office because she does not have a ride. Advised patient that she can go to an urgent care to be evaluated. Patient states that she cannot do this. Please review and advise, VIN Townsend Terri, APRN.ORE WASHER 06/20/2024 4:36 PM Signed She can take an jkfg-fai-txaaepm cough medicine such as delsym and take Benadryl if she would like. Notes she declines to be seen due to transportation. Did she need to speak with social work regarding transportation? Kristen Andrade LPN 06/20/2024 4:45 PM Signed No answer. Left providers message and ask to call office and ask to speak to a nurse with any questions or concerns Allergies As of Date: 06/20/2024 Noted Allergy Reaction ASPIRIN 05/26/2019 16 - Unknown PENICILLINS 12/07/2009 2 - Rash CEPHALEXIN 10/20/2019 9 - Itching CHLORHEXIDINE 10/29/2016 2 - Rash Comments: Skin rash CIPROFLOXACIN 01/19/2024 2 - Rash Comments: Unclear if the pruritic areas of rash were related to medication or not, no prior use IODINATED CONTRAST MEDIA 02/09/2023 10 - Anaphylaxis TORADOL (KETOROLAC) 05/25/2020 2 - Rash ASA (SALICYLATES) 01/27/2011 14 - Other: See Comments Comments: ulcers CONTRAST DYE (IODINE) 05/17/2008 12 - Shortness of Breath DICYCLOMINE 04/01/2023 4 - Hives IBUPROFEN 06/18/2016 8 - GI Upset Date Reviewed: 06/10/2024 Reviewed by: Brittnee Barraza LPN - Fully Assessed Reason for Visit: Cough [28] Primary Visit Diagnosis:Acute cough [R05.1] Prescriptions as of 06/20/2024 - predniSONE (DELTASONE) 20 mg tablet Take 2 tablets by mouth once daily for 4 days. Take daily with food. - albuterol HFA (VENTOLIN HFA) 90 mcg/actuation inhaler Inhale 2 Puffs as instructed every 4 hours as needed for wheezing/shortness of breath. - codeine-guaiFENesin (GUAIFENESIN AC) 10-100 mg/5 mL syrup Take 10 mL by mouth three times a day as needed for cough for up to 7 days. - azithromycin (ZITHROMAX) 250 mg tablet Take 2 tablets by mouth once daily for 1 day, THEN 1 tablet once daily for 4 days. - Cholecalciferol, Vitamin D3, 50 mcg (2,000 unit) cap Take 1 capsule by mouth once daily. - Leg Brace (ANKLE BRACE) misc For left ankle. - SUMAtriptan (IMITREX STATDOSE PEN) 6 mg/0.5 mL pen Inject 0.5 mL subcutaneously as needed for migraine headache (see administration instructions). May repeat dose after 1 hour if needed. Maximum daily dose is 12 mg per day. - pantoprazole DR (PROTONIX) 40 mg tablet Take 1 tablet by mouth daily before breakfast. Take on empty stomach, 1/2 hr before meal. - ARIPiprazole (ABILIFY) 10 mg tablet Take 10 mg by mouth once daily. - hyoscyamine sulfate 0.125 mg ODT Take 0.125 mg by mouth every 4 hours. - LORazepam (ATIVAN) 0.5 mg Take 0.5 mg by mouth once daily as needed. - Mesalamine (LIALDA) 1.2 gram EC tablet Take 1,200 mg by mouth once daily. - traZODone (DESYREL) 50 mg tablet Take 50 mg by mouth daily at bedtime. - cetirizine (ZYRTEC) 10 mg tablet Take 1 tablet by mouth once daily. for itching. - Psyllium Seed-Sucrose (METAMUCIL, SUGAR,) Take per package directions - promethazine (PHENERGAN) 25 mg tablet Take 1 tablet by mouth every 8 hours as needed for nausea/vomiting. - lip (more content not included)... Normal [facility] 06-15-2024 [facility] -------- SALLY VARGAS ([id number]) 1980 F Date Time Provider Department 06/15/24 JAJA CHAHALCHAN During your visit today, we recorded the following information about you: Lara Mercado LPN 06/15/2024 9:06 AM Signed Cough, congestion AND sore throat per pt. Pt states she can not come in for an appt today AND requested a VV. Pt states her friend's nurse tested her for strep throat AND covid AND both were negative. VV scheduled today 10:40am Lara Mercado LPN Allergies As of Date: 06/15/2024 Noted Allergy Reaction ASPIRIN 05/26/2019 16 - Unknown PENICILLINS 12/07/2009 2 - Rash CEPHALEXIN 10/20/2019 9 - Itching CHLORHEXIDINE 10/29/2016 2 - Rash Comments: Skin rash CIPROFLOXACIN 01/19/2024 2 - Rash Comments: Unclear if the pruritic areas of rash were related to medication or not, no prior use IODINATED CONTRAST MEDIA 02/09/2023 10 - Anaphylaxis TORADOL (KETOROLAC) 05/25/2020 2 - Rash ASA (SALICYLATES) 01/27/2011 14 - Other: See Comments Comments: ulcers CONTRAST DYE (IODINE) 05/17/2008 12 - Shortness of Breath DICYCLOMINE 04/01/2023 4 - Hives IBUPROFEN 06/18/2016 8 - GI Upset Date Reviewed: 06/10/2024 Reviewed by: Brittnee Barraza LPN - Fully Assessed Reason for Visit: Cough [28] Prescriptions as of 06/15/2024 - Cholecalciferol, Vitamin D3, 50 mcg (2,000 unit) cap Take 1 capsule by mouth once daily. - Leg Brace (ANKLE BRACE) misc For left ankle. - oxyCODONE IR (ROXICODONE) 5 mg immediate release tablet Take 1 tablet by mouth every 8 hours as needed for up to 5 days. - SUMAtriptan (IMITREX STATDOSE PEN) 6 mg/0.5 mL pen Inject 0.5 mL subcutaneously as needed for migraine headache (see administration instructions). May repeat dose after 1 hour if needed. Maximum daily dose is 12 mg per day. - pantoprazole DR (PROTONIX) 40 mg tablet Take 1 tablet by mouth daily before breakfast. Take on empty stomach, 1/2 hr before meal. - ARIPiprazole (ABILIFY) 10 mg tablet Take 10 mg by mouth once daily. - hyoscyamine sulfate 0.125 mg ODT Take 0.125 mg by mouth every 4 hours. - LORazepam (ATIVAN) 0.5 mg Take 0.5 mg by mouth once daily as needed. - Mesalamine (LIALDA) 1.2 gram EC tablet Take 1,200 mg by mouth once daily. - traZODone (DESYREL) 50 mg tablet Take 50 mg by mouth daily at bedtime. - cetirizine (ZYRTEC) 10 mg tablet Take 1 tablet by mouth once daily. for itching. - Psyllium Seed-Sucrose (METAMUCIL, SUGAR,) Take per package directions - promethazine (PHENERGAN) 25 mg tablet Take 1 tablet by mouth every 8 hours as needed for nausea/vomiting. - yokfxc-ivbkqsrg-ukpmngo (CREON 3) 3,000-9,500- 15,000 unit delayed release capsule Take 1 capsule by mouth three times a day with meals. - gabapentin (NEURONTIN) 400 mg capsule Take 1 capsule by mouth every 12 hours. - cyanocobalamin (VITAMIN B-12) 1,000 mcg tab Take 1 tablet by mouth once daily. - diphenhydrAMINE (BENADRYL) 25 mg capsule Take 50 mg by mouth at bedtime as needed. Problem List As Of Date 06/15/2024 Noted Resolved Routine gynecological examination [Z01.419] 05/17/2008 02/16/2023 Class: Chronic Family history of diabetes mellitus [Z83.3] 05/17/2008 Calculus of kidney [N20.0] 05/17/2008 Allergic rhinitis, cause unspecified [J30.9] 05/17/2008 Migraine without aura [G43.009] 05/17/2008 Smoker [F17.200] 05/17/2008 12/01/2023 Impaired fasting glucose [R73.01] 05/17/2008 12/01/2023 Benign liver cyst [K76.89] 05/24/2010 Class: Chronic Ovarian cyst [N83.209] 07/15/2012 Generalized anxiety disorder [F41.1] 03/31/2016 Reactive depression [F32.9] 03/31/2016 Adjustment insomnia [F51.02] 03/31/2016 Encounter for screening for cardiovascular diso*03/31/2016 02/16/2023 Bilateral low back pain without sciatica [M54.5*06/18/2016 Pain in left hip [M25.552] 06/18/2016 Greater trochanteric bursitis [M70.60] 06/18/2016 Hydronephrosis of left kidney [N13.30] 02/05/2017 Hydroureter on left [N13.4] 02/05/2017 Right facial numbness [R20.0] 02/23/2017 Right upper extremity numbness [R20.0] 02/23/2017 Numbness of right lower extremity [R20.0] 02/23/2017 Weakness of right upper extremity [R29.898] 02/23/2017 Weakness of right lower extremity [R29.898] 02/23/2017 Vision blurred [H53.8] 02/23/2017 Lumbar spine pain [M54.50] 02/23/2017 Cervical spine pain [M54.2] 02/23/2017 Abnormal MRI, lumbar spine [R93.7] 02/23/2017 Hydroureter, left [N13.4] 03/30/2017 Lung nodules [R91.8] 01/22/2020 Intractable nausea and vomiting [R11.2] 05/25/2020 Chronic pain syndrome [G89.4] 06/06/2020 Liver cyst [K76.89] 06/08/2020 Post-op pain [G89.18] 06/19/2020 02/16/2023 Marijuana use [F12.90] 07/10/2020 03/30/2023 Pain of multiple sites [R52] 04/11/2021 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 Normal [facility] Telephone (INTMWS) -------- SALLY VARGAS ([id number]) 1980 F Date Time Provider Department 06/15/24 SILVERIO HALEY IN[facility] During your visit today, we recorded the following information about you: Whit Guardado LPN 06/15/2024 10:56 AM Signed Patient calling she said had virtual visit with POWER HOUSE ENGINEER this morning, she was not given any rx. Patient said she has cough for past week, yellow secretions, no chest tightness, no fever, sore throat from post nasal drainage, patient said she can not sleep due to the cough. Patient asking for prednisone and cough syrup with codeine rx to be sent to [facility] pharmacy. Please advise Whit Guardado LPN 06/15/2024 1:38 PM Signed Patient calling back asking for antibiotic rx also. Please advise Deepa Salvador LPN 06/16/2024 9:06 AM Signed Pt calling to say this was not answered. This nurse does state you may need an appointment for evaluation . Most times atb will not be called in unless seen. Pt becomes agitated and States'' its just a cough I do not have strep or covid'.Explained may need chest x-ray. Antibiotics are not given for viruses. Pt refuses appointment asks to have message resent. Whit Guardado LPN 06/16/2024 11:23 AM Signed Patient calling back wants to have virtual visit with POWER HOUSE ENGINEER. She is asking for prednisone, rx cough syrup, antibiotics rx. She was not happy with virtual visit with Jaja Chahal POWER HOUSE ENGINEER. She can not come in for in person appt, no transportation. Aware PCP and Merced Hutchinson POWER HOUSE ENGINEER are out of office today. Scheduled patient with Gretchen Newton POWER HOUSE ENGINEER at 240 pm for virtual visit today. Allergies As of Date: 06/15/2024 Noted Allergy Reaction ASPIRIN 05/26/2019 16 - Unknown PENICILLINS 12/07/2009 2 - Rash CEPHALEXIN 10/20/2019 9 - Itching CHLORHEXIDINE 10/29/2016 2 - Rash Comments: Skin rash CIPROFLOXACIN 01/19/2024 2 - Rash Comments: Unclear if the pruritic areas of rash were related to medication or not, no prior use IODINATED CONTRAST MEDIA 02/09/2023 10 - Anaphylaxis TORADOL (KETOROLAC) 05/25/2020 2 - Rash ASA (SALICYLATES) 01/27/2011 14 - Other: See Comments Comments: ulcers CONTRAST DYE (IODINE) 05/17/2008 12 - Shortness of Breath DICYCLOMINE 04/01/2023 4 - Hives IBUPROFEN 06/18/2016 8 - GI Upset Date Reviewed: 06/10/2024 Reviewed by: Brittnee Barraza LPN - Fully Assessed Reason for Visit: Medication Request [138] Prescriptions as of 06/16/2024 - Cholecalciferol, Vitamin D3, 50 mcg (2,000 unit) cap Take 1 capsule by mouth once daily. - Leg Brace (ANKLE BRACE) misc For left ankle. - SUMAtriptan (IMITREX STATDOSE PEN) 6 mg/0.5 mL pen Inject 0.5 mL subcutaneously as needed for migraine headache (see administration instructions). May repeat dose after 1 hour if needed. Maximum daily dose is 12 mg per day. - pantoprazole DR (PROTONIX) 40 mg tablet Take 1 tablet by mouth daily before breakfast. Take on empty stomach, 1/2 hr before meal. - ARIPiprazole (ABILIFY) 10 mg tablet Take 10 mg by mouth once daily. - hyoscyamine sulfate 0.125 mg ODT Take 0.125 mg by mouth every 4 hours. - LORazepam (ATIVAN) 0.5 mg Take 0.5 mg by mouth once daily as needed. - Mesalamine (LIALDA) 1.2 gram EC tablet Take 1,200 mg by mouth once daily. - traZODone (DESYREL) 50 mg tablet Take 50 mg by mouth daily at bedtime. - cetirizine (ZYRTEC) 10 mg tablet Take 1 tablet by mouth once daily. for itching. - Psyllium Seed-Sucrose (METAMUCIL, SUGAR,) Take per package directions - promethazine (PHENERGAN) 25 mg tablet Take 1 tablet by mouth every 8 hours as needed for nausea/vomiting. - kplzuz-aecnujqv-oncmnfx (CREON 3) 3,000-9,500- 15,000 unit delayed release capsule Take 1 capsule by mouth three times a day with meals. - gabapentin (NEURONTIN) 400 mg capsule Take 1 capsule by mouth every 12 hours. - cyanocobalamin (VITAMIN B-12) 1,000 mcg tab Take 1 tablet by mouth once daily. - diphenhydrAMINE (BENADRYL) 25 mg capsule Take 50 mg by mouth at bedtime as needed. Problem List As Of Date 06/15/2024 Noted Resolved Routine gynecological examination [Z01.419] 05/17/2008 02/16/2023 Class: Chronic Family history of diabetes mellitus [Z83.3] 05/17/2008 Calculus of kidney [N20.0] 05/17/2008 Allergic rhinitis, cause unspecified [J30.9] 05/17/2008 Migraine without aura [G43.009] 05/17/2008 Smoker [F17.200] 05/17/2008 12/01/2023 Impaired fasting glucose [R73.01] 05/17/2008 12/01/2023 Benign liver cyst [K76.89] 05/24/2010 Class: Chronic Ovarian cyst [N83.209] 07/15/2012 Generalized anxiety disorder [F41.1] 03/31/2016 Reactive depression [F32.9] 03/31/2016 Adjustment insomnia [F51.02] 03/31/2016 Encounter for screening for cardiovascular diso*03/31/2016 02/16/2023 Bilateral low back pain without sciatica [M54.5*06/18/2016 Pain in left hip [M25.552] 06/18/2016 Greater trochanteric bursitis [M70.60] 06/18/2016 Hydronephr (more content not included)... Normal [facility] Urine Cultureon 06-15-2024 [facility] Clinical correlation necessary, Possible skin contamination. Presumptive Lactobacillus sp. Monarch Count 50,000-80,000 Normal [facility] Comment on above: Performed By: #### M 100.2200 ####[facility] [address] [place], [address] Abdomen/Pelvis W IV Cont ONL Yon 06-13-2024 Abdomen/Pelvis W IV Cont ONLY Normal [facility] CBC W/Diff, Automatedon 05-17 Absolute Lymph 2.60 X10 3/uL Normal 0.83-4.51 [facility] Comment on above: Performed By: #### L 500.4050, L501.2450, L100.0100 ####[facility] [address] [place], [address] Absolute Neut 4.8 X10 3/uL Normal 2.0-7.7 [facility] Comment on above: Performed By: #### L 500.4050, L501.2450, L100.0100 ####[facility] [address] [place], [address] Basophils/100 WBC (Bld) 0.5 % Normal 0-1 [facility] Comment on above: Performed By: #### L 500.4050, L501.2450, L100.0100 ####[facility] [address] [place], [address] Eosinophils/100 WBC (Bld) 2.7 % Normal 0-5 [facility] Comment on above: Performed By: #### L 500.4050, L501.2450, L100.0100 ####[facility] [address] [place], [address] Erythrocyte distribution width (RBC) [Ratio] 12.3 % Normal 11.6-14.6 [facility] Comment on above: Performed By: #### L 500.4050, L501.2450, L100.0100 ####[facility] [address] [place], [address] Hematocrit (Bld) [Volume fraction] 38.2 % Normal 37-47 [facility] Comment on above: Performed By: #### L 500.4050, L501.2450, L100.0100 ####[facility] [address] [place], [address] Hemoglobin (Bld) [Mass/Vol] 12.3 g/dL Normal 12.0-15.0 [facility] Comment on above: Performed By: #### L 500.4050, L501.2450, L100.0100 ####[facility] [address] [place], [address] IG% 1.200 High 0.0-0.9 [facility] Comment on above: Result Comment: IG% - Immature Granulocytes (promyelocytes, myelocytes andmetamyelocytes) > 1% indicates that a LEFT SHIFT is Present. Performed By: #### L 500.4050, L501.2450, L100.0100 ####[facility] [address] [place], [address] Lymphocytes/100 WBC (Bld) 31.6 % Normal 19-41 [facility] Comment on above: Performed By: #### L 500.4050, L501.2450, L100.0100 ####[facility] [address] [place], [address] MCH (RBC) [Entitic mass] 29.5 pg Normal 27.0-32.0 [facility] Comment on above: Performed By: #### L 500.4050, L501.2450, L100.0100 ####[facility] [address] [place], [address] MCHC (RBC) [Mass/Vol] 32.2 g/dL Normal 32-36 [facility] Comment on above: Performed By: #### L 500.4050, L501.2450, L100.0100 ####[facility] [address] [place], [address] MCV (RBC) [Entitic vol] 91.6 fL Normal 81-99 [facility] Comment on above: Performed By: #### L 500.4050, L501.2450, L100.0100 ####[facility] [address] [place], [address] Monocytes/100 WBC (Bld) 5.2 % Normal 0-10 [facility] Comment on above: Performed By: #### L 500.4050, L501.2450, L100.0100 ####[facility] [address] [place], [address] Neutrophils/100 WBC (Bld) 58.8 % Normal 47-70 [facility] Comment on above: Performed By: #### L 500.4050, L501.2450, L100.0100 ####[facility] [address] [place], [address] Nucleated RBC (Bld) [#/Vol] 0 10*3/uL Normal 0-5 [facility] Comment on above: Performed By: #### L 500.4050, L501.2450, L100.0100 ####[facility] [address] [place], [address] Platelet mean volume (Bld) [Entitic vol] 10.1 fL Normal 6.2-12.0 [facility] Comment on above: Performed By: #### L 500.4050, L501.2450, L100.0100 ####[facility] [address] [place], [address] Platelets (Bld) [#/Vol] 234 10*3/uL Normal 150-450 [facility] Comment on above: Performed By: #### L 500.4050, L501.2450, L100.0100 ####[facility] [address] [place], [address] RBC (Bld) [#/Vol] 4.17 10*6/uL Low 4.2-5.4 [facility] Comment on above: Performed By: #### L 500.4050, L501.2450, L100.0100 ####[facility] [address] [place], [address] RDW SD 41.4 fl Normal 35.1-43.9 [facility] Comment on above: Performed By: #### L 500.4050, L501.2450, L100.0100 ####[facility] [address] [place], [address] WBC (Bld) [#/Vol] 8.2 10*3/uL Normal 4.4-11.0 [facility] Comment on above: Performed By: #### L 500.4050, L501.2450, L100.0100 ####[facility] [address] [place], [address] Comprehensive Metabolic Prof [facility] 06-13-2024 Albumin [Mass/Vol] 3.6 g/dL Normal 3.2-5.0 [facility] Comment on above: Performed By: #### L 500.4050, L501.2450, L100.0100 ####[facility] [address] [place], [address] Albumin/Globulin [Mass ratio] 0.9 {ratio} Normal 0.9-2.4 [facility] Comment on above: Performed By: #### L 500.4050, L501.2450, L100.0100 ####[facility] [address] [place], [address] ALK P 119 U/L High 45-117 [facility] Comment on above: Performed By: #### L 500.4050, L501.2450, L100.0100 ####[facility] [address] [place], [address] ALT [Catalytic activity/Vol] 23 U/L Normal 13-56 [facility] Comment on above: Performed By: #### L 500.4050, L501.2450, L100.0100 ####[facility] [address] [place], [address] AST [Catalytic activity/Vol] 16 U/L Normal 15-37 [facility] Comment on above: Performed By: #### L 500.4050, L501.2450, L100.0100 ####[facility] [address] [place], [address] Bilirubin [Mass/Vol] 0.60 mg/dL Normal 0.20-1.00 [facility] Comment on above: Result Comment: For patients on eltrombopag therapy, use of Dimension [place] TBIL is not recommended. Performed By: #### L 500.4050, L501.2450, L100.0100 ####[facility] [address] [place], [address] BUN/CRE 11.3 RATIO Normal 10-20 [facility] Comment on above: Performed By: #### L 500.4050, L501.2450, L100.0100 ####[facility] [address] [place], [address] CA,Total 9.0 mg/dL Normal 8.5-10.1 [facility] Comment on above: Performed By: #### L 500.4050, L501.2450, L100.0100 ####[facility] [address] [place], [address] Chloride [Moles/Vol] 104 mmol/L Normal 98-107 [facility] Comment on above: Performed By: #### L 500.4050, L501.2450, L100.0100 ####[facility] [address] [place], [address] CO2 [Moles/Vol] 28.0 mmol/L Normal 21.0-32.0 [facility] Comment on above: Performed By: #### L 500.4050, L501.2450, L100.0100 ####[facility] [address] [place], [address] Creatinine [Mass/Vol] 1.15 mg/dL High 0.55-1.02 [facility] Comment on above: Result Comment: The validity of the calculated GFR GFRAA in patients over70 years has not been determined. Clinical correlation isessential. Performed By: #### L 500.4050, L501.2450, L100.0100 ####[facility] [address] [place], [address] ECRCL 62.95 ml/min Normal [facility] Comment on above: Performed By: #### L 500.4050, L501.2450, L100.0100 ####[facility] [address] [place], [address] EST GFR - AA 66 mL/min Normal >60 [facility] Comment on above: Result Comment: Afri can [place] GFR Calc Performed By: #### L 500.4050, L501.2450, L100.0100 ####[facility] [address] [place], [address] GAP 5 Normal 5-15 [facility] Comment on above: Performed By: #### L 500.4050, L501.2450, L100.0100 ####[facility] [address] [place], [address] GFR/1.73 sq M.predicted among non-blacks MDRD (S/P/Bld) [Vol rate/Area] 54 mL/min/{1.73_m2} Low >60 [facility] Comment on above: Result Comment: Non- GFR Calc Performed By: #### L 500.4050, L501.2450, L100.0100 ####[facility] [address] [place], [address] Globulin (S) [Mass/Vol] 3.8 g/dL Normal 2.2-4.2 [facility] Comment on above: Performed By: #### L 500.4050, L501.2450, L100.0100 ####[facility] [address] [place], [address] Glucose [Mass/Vol] 104 mg/dL Normal 74-106 [facility] Comment on above: Result Comment: Fast ing Glucose result from 100 to 125 mg/dLsuggests IMPAIRED HOMEOSTASIS per A.D.A. criteria. Performed By: #### L 500.4050, L501.2450, L100.0100 ####[facility] [address] [place], [address] Potassium [Moles/Vol] 3.7 mmol/L Normal 3.5-5.1 [facility] Comment on above: Performed By: #### L 500.4050, L501.2450, L100.0100 ####[facility] [address] [place], [address] Sodium [Moles/Vol] 137 mmol/L Normal 136-145 [facility] Comment on above: Performed By: #### L 500.4050, L501.2450, L100.0100 ####[facility] [address] [place], [address] T PROT 7.4 g/dL Normal 6.4-8.2 [facility] Comment on above: Performed By: #### L 500.4050, L501.2450, L100.0100 ####[facility] [address] [place], [address] Urea nitrogen [Mass/Vol] 13 mg/dL Normal 7-18 [facility] Comment on above: Performed By: #### L 500.4050, L501.2450, L100.0100 ####[facility] [address] [place], [address] Emergency Department Summary on 06-13-2024 Emergency Department Summary Normal [facility] Lipaseon 06-13-2024 Lipase [Catalytic activity/Vol] 32 U/L Normal 13-75 [facility] Comment on above: Result Comment: Jay mortensen note:LIPASE revised reference range effective 22.New Lipase methodology. Expected to produce lower valuesthan the previous assay method.NEW Reference Range: 13 - 75 U/L Performed By: #### L 500.4050, L501.2450, L100.0100 ####[facility] [address] [place], [address] Urinalysis, Completeon 06-13 BACTERIA 3+ /hpf Normal None Seen [facility] Comment on above: Order Comment: CLEAN CATCH Performed By: #### L 400.0001 ####[facility] [address] [place], [address] CA OX CRYSTAL RARE Normal [facility] Comment on above: Order Comment: CLEAN CATCH Performed By: #### L 400.0001 ####[facility] [address] [place], [address] EPI,SQUAMOUS 25-50 SEEN Normal 5-10 [facility] Comment on above: Order Comment: CLEAN CATCH Performed By: #### L 400.0001 ####[facility] [address] [place], [place], [address] Mucus Ql (Urine sed) 3+ /hpf Normal [facility] Comment on above: Order Comment: CLEAN CATCH Performed By: #### L 400.0001 ####[facility] [address] [place], [place], [address] RBC 0-5 SEEN Normal 0-5 [facility] Comment on above: Order Comment: CLEAN CATCH Performed By: #### L 400.0001 ####[facility] [address] [place], [place], [address] WBC 0-5 SEEN Normal 0-5 [facility] Comment on above: Order Comment: CLEAN CATCH Performed By: #### L 400.0001 ####[facility] [address] [place], [place], [address] CNOVon 06-10-2024 CNOV Office Visit (INTMWS ) -------- SALLY VARGAS ([id number]) 1980 F Date Time Provider Department 06/10/24 10:40 AM SILVERIO HALEY INTMWS During your visit today, we recorded the following information about you: Temperature Pulse Respiration Blood pressure 96.1 degrees 63/minute 16/minute 114/72 Weight 91.1 kg Silverio Haley MD 06/10/2024 12:10 PM Signed This note was created using NoteWriter. Subjective Sally Gardinerderekbernard is a 43 year old female. Patient presents with: Established Patient: X 3 weeks left low leg pain and swelling with symptoms worse at night SUBJECTIVE: Sally Vargas is a 43 year old year old lady here today for acute appointment for review of medical conditions. The patient is a 43-year-old female presenting with left lower extremity and ankle swelling and pain. The patient reports a 3-week history of left lower extremity and ankle swelling and pain. The swelling is primarily noted at the end of the day and before bedtime, causing the skin to stretch and the tattoo on her leg to appear distorted. The swelling is associated with pain in the skin and joint, described as a tight sensation. She denies any prior injuries to the left lower extremity or ankle. The patient reports that the swelling and pain are exacerbated by wearing flip-flops and are not alleviated by elevating the leg or applying ice. She has been using crutches to ambulate when the swelling is severe. She has tried taking Tylenol for pain relief, but it has been ineffective. She is unable to take ibuprofen due to a history of hives. The patient also reports a history of dry, pruritic skin, for which she has been using cortisone cream and aloe vera lotion with chamomile. She notes improvement in her skin condition with these treatments. She has a history of vitamin D deficiency and has not been taking her prescribed vitamin D supplement. She is currently taking lorazepam, Protonix, and Creon. She has a history of migraines, for which she is receiving injections. She was in the ER yesterday for RLQ pain. States work up was negative (no records available at time of visit). States was told to see urologyu She also has a history of kidney stones and is experiencing right flank pain similar to previous episodes. She has not seen a urologist for this condition recently. PAST MEDICAL HISTORY Diagnosis Date Allergic rhinitis, cause unspecified 05/17/2008 Spring and summer Benign liver cyst 05/24/2010 CT scan at [facility] 11/2009 and 04/2010 showe 4 mm increase in size. No pain. No elevated LFTs on 03/11/2010. Calculus of kidney 05/17/[address] Nicolas: Hospitalized age 20, and again later -- no procedures so far ([facility], [facility], [address] [facility]) Cancer (HCC) COVID-19 virus infection 10/07/2021 09/2021 Diverticulosis Dysmenorrhea Hemorrhoids History of blood transfusion Impaired fasting glucose 05/17/2008 Sugar 104 fasting, 04/21 Intractable nausea and vomiting 05/25/2020 Marijuana use 07/10/2020 ER visit 07/06/2020, [place] MIGRAINE 05/17/2008 Has used imitrex with good response; Keeps Vicodin on hand when needed; Ovarian cyst 07/15/2012 Pancreatitis Smoker 05/17/2008 Started age 26, 1/2 a PPD Current Outpatient Medications Medication Sig SUMAtriptan (IMITREX STATDOSE PEN) 6 mg/0.5 mL pen Inject 0.5 mL subcutaneously as needed for migraine headache (see administration instructions). May repeat dose after 1 hour if needed. Maximum daily dose is 12 mg per day. pantoprazole DR (PROTONIX) 40 mg tablet Take 1 tablet by mouth daily before breakfast. Take on empty stomach, 1/2 hr before meal. ARIPiprazole (ABILIFY) 10 mg tablet Take 10 mg by mouth once daily. hyoscyamine sulfate 0.125 mg ODT Take 0.125 mg by mouth every 4 hours. LORazepam (ATIVAN) 0.5 mg Take 0.5 mg by mouth once daily as needed. Mesalamine (LIALDA) 1.2 gram EC tablet Take 1,200 mg by mouth once daily. traZODone (DESYREL) 50 mg tablet Take 50 mg by mouth daily at bedtime. promethazine (PHENERGAN) 25 mg tablet Take 1 tablet by mouth every 8 hours as needed for nausea/vomiting. cwulzx-isecfvnb-wktjwvd (CREON 3) 3,000-9,500- 15,000 unit delayed release capsule Take 1 capsule by mouth three times a day with meals. gabapentin (NEURONTIN) 400 mg capsule Take 1 capsule by mouth every 12 hours. diphenhydrAMINE (BENADRYL) 25 mg capsule Take 50 mg by mouth at bedtime as needed. ibuprofen (MOTRIN) 600 mg tablet Take 600 mg by mouth every 6 hours as needed for pain. cetirizine (ZYRTEC) 10 mg tablet Take 1 tablet by mouth once daily. for itching. (Patient not taking: Reported on 03/11/2024) Psyllium Seed-Sucrose (METAMUCIL, SUGAR,) Take per package directions (Patient not taking: Reported on 03/11/2024) famotidine (PEPCID) 40 mg tablet Take 1 tablet by mouth once daily. (Patient not taking: Reported on 03/11/2024) Chol (more content not included)... Normal [facility] 06-10-2024 [facility] Telephone (INTMWS) -------- SALLY VARGAS ([id number]) 1980 F Date Time Provider Department 06/10/24 SILVERIO HALEY INTWS During your visit today, we recorded the following information about you: Brittnee Barraza LPN 06/10/2024 12:19 PM Signed Printed order for ankle brace was not given to patient before she left [facility]. Left message on answering machine as to whether to take Order to medical records for her to apple picker, or mail it to her. DAVID Torrez Krystle, RN 06/10/2024 12:29 PM Signed Patient returns call and reports that she will apple picker order for ankle brace in medical records. Ivanna Torre, Brittnee Manrique LPN 06/10/2024 4:24 PM Signed Ready to go down to Med Rec. Brittnee Barraza LPN Allergies As of Date: 06/10/2024 Noted Allergy Reaction ASPIRIN 05/26/2019 16 - Unknown PENICILLINS 12/07/2009 2 - Rash CEPHALEXIN 10/20/2019 9 - Itching CHLORHEXIDINE 10/29/2016 2 - Rash Comments: Skin rash CIPROFLOXACIN 01/19/2024 2 - Rash Comments: Unclear if the pruritic areas of rash were related to medication or not, no prior use IODINATED CONTRAST MEDIA 02/09/2023 10 - Anaphylaxis TORADOL (KETOROLAC) 05/25/2020 2 - Rash ASA (SALICYLATES) 01/27/2011 14 - Other: See Comments Comments: ulcers CONTRAST DYE (IODINE) 05/17/2008 12 - Shortness of Breath DICYCLOMINE 04/01/2023 4 - Hives IBUPROFEN 06/18/2016 8 - GI Upset Date Reviewed: 06/10/2024 Reviewed by: Brittnee Barraza LPN - Fully Assessed Reason for Visit: Orders [681] Prescriptions as of 06/10/2024 - Cholecalciferol, Vitamin D3, 50 mcg (2,000 unit) cap Take 1 capsule by mouth once daily. - Leg Brace (ANKLE BRACE) misc For left ankle. - oxyCODONE IR (ROXICODONE) 5 mg immediate release tablet Take 1 tablet by mouth every 8 hours as needed for up to 5 days. - SUMAtriptan (IMITREX STATDOSE PEN) 6 mg/0.5 mL pen Inject 0.5 mL subcutaneously as needed for migraine headache (see administration instructions). May repeat dose after 1 hour if needed. Maximum daily dose is 12 mg per day. - pantoprazole DR (PROTONIX) 40 mg tablet Take 1 tablet by mouth daily before breakfast. Take on empty stomach, 1/2 hr before meal. - ARIPiprazole (ABILIFY) 10 mg tablet Take 10 mg by mouth once daily. - hyoscyamine sulfate 0.125 mg ODT Take 0.125 mg by mouth every 4 hours. - LORazepam (ATIVAN) 0.5 mg Take 0.5 mg by mouth once daily as needed. - Mesalamine (LIALDA) 1.2 gram EC tablet Take 1,200 mg by mouth once daily. - traZODone (DESYREL) 50 mg tablet Take 50 mg by mouth daily at bedtime. - cetirizine (ZYRTEC) 10 mg tablet Take 1 tablet by mouth once daily. for itching. - Psyllium Seed-Sucrose (METAMUCIL, SUGAR,) Take per package directions - promethazine (PHENERGAN) 25 mg tablet Take 1 tablet by mouth every 8 hours as needed for nausea/vomiting. - mnkwkm-jkvjwypa-gmuxzcg (CREON 3) 3,000-9,500- 15,000 unit delayed release capsule Take 1 capsule by mouth three times a day with meals. - gabapentin (NEURONTIN) 400 mg capsule Take 1 capsule by mouth every 12 hours. - cyanocobalamin (VITAMIN B-12) 1,000 mcg tab Take 1 tablet by mouth once daily. - diphenhydrAMINE (BENADRYL) 25 mg capsule Take 50 mg by mouth at bedtime as needed. 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] 05/24/2010 Class: Chronic Ovarian cyst [N83.209] 07/15/2012 Generalized anxiety disorder [F41.1] 03/31/2016 Reactive depression [F32.9] 03/31/2016 Adjustment insomnia [F51.02] 03/31/2016 Encounter for screening for cardiovascular diso*03/31/2016 02/16/2023 Bilateral low back pain without sciatica [M54.5*06/18/2016 Pain in left hip [M25.552] 06/18/2016 Greater trochanteric bursitis [M70.60] 06/18/2016 Hydronephrosis of left kidney [N13.30] 02/05/2017 Hydroureter on left [N13.4] 02/05/2017 Right facial numbness [R20.0] 02/23/2017 Right upper extremity numbness [R20.0] 02/23/2017 Numbness of right lower extremity [R20.0] 02/23/2017 Weakness of right upper extremity [R29.898] 02/23/2017 Weakness of right lower extremity [R29.898] 02/23/2017 Vision blurred [H53.8] 02/23/2017 Lumbar spine pain [M54.50] 02/23/2017 Cervical spine pain [M54.2] 02/23/2017 Abnormal MRI, lumbar spine [R93.7] 02/23/2017 Hydroureter, left [N13.4] 03/30/2017 Lung nodules [R91.8] 01/22/2020 Intractable nausea and vomiting [R11.2] 05/25/2020 Chronic pain syndrome [G89.4] 06/06/2020 Liver cyst [K76.89] 06/08/2020 Post-op pain [G89.18] (more content not included)... Normal [facility] CBC + DIFFon 06-09-2024 Baso # 0.02 x10EE3/UL Normal 0.00 - 0.10 [facility] Comment on above: Performed By: #### 2 03796 ####[facility],[address] [place] [address] Basophils/100 WBC (Bld) 0.2 % Normal 0.0 - 2.0 [facility] Comment on above: Performed By: #### 2 08390 ####[facility],[address] [place] [address] CBC + DIFF Normal [facility] Comment on above: Result Comment: CBC- COMPLETE BLOOD COUNT Performed By: #### 2 12787 ####[facility],[address] [place], [place] [address] EO # 0.27 x10EE3/UL Normal 0.00 - 0.50 [facility] Comment on above: Performed By: #### 2 98640 ####[facility],[address] [place] [address] Eosinophils/100 WBC (Bld) 3.1 % Normal 0.0 - 7.0 [facility] Comment on above: Performed By: #### 2 37941 ####[facility],[address] [place] [address]83 Erythrocyte distribution width (RBC) [Ratio] 13.3 % Normal 12.0 - 15.6 [facility] Comment on above: Performed By: #### 2 68164 ####[facility],[address] [place], [place] [address] Hematocrit (Bld) [Volume fraction] 40.9 % Normal 34.0 - 46.0 [facility] Comment on above: Performed By: #### 2 30985 ####[facility],[address] [place] [address] Hemoglobin (Bld) [Mass/Vol] 14.0 g/dL Normal 12.0 - 16.0 [facility] Comment on above: Performed By: #### 2 60340 ####[facility],[address] [place] [address] Lymph # 2.49 x10EE3/UL Normal 0.80 - 2.80 [facility] Comment on above: Performed By: #### 2 63605 ####[place] [address] Lymphocytes/100 WBC (Bld) 29.1 % Normal 20.0 - 45.0 [facility] Comment on above: Performed By: #### 2 69524 ####[facility],[address] [place] [address] MANUAL DIFF N/A Normal [facility] Comment on above: Performed By: #### 2 80265 ####[facility],[address] [place] [address] MCH (RBC) [Entitic mass] 31 pg Normal 27 - 33 [facility] Comment on above: Performed By: #### 2 08306 ####[place] [address] MCHC 34 X10 3 Normal 32 - 36 [facility] Comment on above: Performed By: #### 2 47113 ####[facility],[address] [place], [place] [address] MCV (RBC) [Entitic vol] 89 fL Normal 80 - 99 [facility] Comment on above: Performed By: #### 2 86865 ####[place] [address] [place] # 0.47 x10EE3/UL Normal 0.20 - 1.00 [facility] Comment on above: Performed By: #### 2 59796 ####[facility],[address] [place] [address] 43610 MONOS % 5.5 % Normal 0.0 - 10.0 [facility] Comment on above: Performed By: #### 2 39656 ####[facility],[address] [place] [address]4410 Morphology Adrian (Bld) [Interp] N/A Normal [facility] Comment on above: Performed By: #### 2 16867 ####[facility],[address] [place] [address]000 Neut # 5.33 x10EE3/UL Normal 1.50 - 7.10 [facility] Comment on above: Performed By: #### 2 64672 ####[facility],[address] [place] [address]302 Neutrophils/100 WBC (Bld) 62.1 % Normal 46.0 - 76.0 [facility] Comment on above: Performed By: #### 2 62933 ####[facility],[address] [place] [address]704 PLATELET 253 x10EE3/UL Normal 150 - 450 [facility] Comment on above: Performed By: #### 2 26302 ####[facility],[address] [place] [address] 93668 Platelet mean volume (Bld) [Entitic vol] 8.2 fL Normal 6.6 - 10.5 [facility] Comment on above: Result Comment: AUTO MATED DIFFERENTIAL Performed By: #### 2 20580 ####[address] [address] RBC 4.59 x 10EE6/UL Normal 4.10 - 5.30 [facility] Comment on above: Performed By: #### 2 47699 ####[facility],[address] [place] [address]2674 WBC 8.6 x 10EE3/UL Normal 4.5 - 10.8 [facility] Comment on above: Performed By: #### 2 64524 ####[facility],[address] [place] [address]89[address] CMP with eGFRon 06-09-2024 AGE 43 years Normal [facility] Comment on above: Performed By: #### 2 00273 ####[facility],[address] [place] [address] 21087 Albumin [Mass/Vol] 3.9 g/dL Normal 3.4 - 5.0 [facility] Comment on above: Performed By: #### 2 17665 ####[facility],[address] [place] [address] Albumin/Globulin [Mass ratio] 1.1 {ratio} Normal 0.9 - 1.6 [facility] Comment on above: Performed By: #### 2 00506 ####[facility],[address] [place] [address]01 ALK PHOS 140 U/L High 46 - 116 [facility] Comment on above: Performed By: #### 2 24967 ####[facility],[address] [place] [address]132 ALT [Catalytic activity/Vol] 25 U/L Normal 16 - 63 [facility] Comment on above: Performed By: #### 2 60841 ####[facility],[address] [place] [address]7787 Anion gap [Moles/Vol] 12 mmol/L Normal 10 - 20 [facility] Comment on above: Performed By: #### 2 37022 ####[address] [address] AST [Catalytic activity/Vol] 19 U/L Normal 13 - 39 [facility] Comment on above: Performed By: #### 2 23268 ####[facility],[address] [place] [address] 13338 B/C RATIO 15 ratio Normal 0 - 30 [facility] Comment on above: Performed By: #### 2 84768 ####[facility],[address] [place], [place] [address] Bilirubin [Mass/Vol] 1.1 mg/dL High 0.2 - 1.0 [facility] Comment on above: Performed By: #### 2 81858 ####[facility],[address] [place] [address] Calcium [Mass/Vol] 9.1 mg/dL Normal 8.5 - 10.1 [facility] Comment on above: Performed By: #### 2 00973 ####[facility],[address] [place] [address] Chloride [Moles/Vol] 99 mmol/L Normal 98 - 107 [facility] Comment on above: Performed By: #### 2 01836 ####[facility],[address] [place] [address] CMP with eGFR Normal [facility] [facility] Comment on above: Result Comment: COMP REHENSIVE METABOLIC PANEL Performed By: #### 2 63356 ####[facility],[address] [place] [address] CO2 [Moles/Vol] 29.4 mmol/L Normal 21.0 - 32.0 [facility] Comment on above: Performed By: #### 2 19145 ####[facility],[address] [place], [place] [address] Creatinine [Mass/Vol] 1.17 mg/dL High 0.55 - 1.02 [facility] Comment on above: Performed By: #### 2 24579 ####[facility],[address] [place] [address] eGFR 50 ML/MINUTE Low 60 - 999 [facility] Comment on above: Performed By: #### 2 89151 ####[facility],[address],[place] [address] GFR/1.73 sq M.predicted among non-blacks MDRD (S/P/Bld) [Vol rate/Area] mL/min/{1.73_m2} Normal 60 - 999 [facility] Comment on above: Result Comment: ACCO RDING TO THE NATIONAL KIDNEY DISEASE EDUCATION PROGRAM(NKDE), A NORMAL eGFRIS A VALUE GREATER THAN OR EQUAL TO 60 ML/MIN/1.73 SQ METERS.CHRONIC KIDNEY DISEASE: <60mL/MIN/1.73 SQ METERSKIDNEY FAILURE: <15mL/MIN/1.73 SQ METERSTHIS TEST SHOULD ONLY BE USED FOR PATIENTS 18 YEARS OF AGE AND OLDER. Performed By: #### 2 91947 ####[address] [address] Globulin (S) [Mass/Vol] 3.7 g/dL Normal 1.5 - 3.8 [facility] Comment on above: Performed By: #### 2 19445 ####[address] [address] Glucose [Mass/Vol] 106 mg/dL Normal 74 - 106 [facility] Comment on above: Performed By: #### 2 98109 ####[address] [address] Potassium [Moles/Vol] 3.6 mmol/L Normal 3.5 - 5.1 [facility] Comment on above: Performed By: #### 2 96128 ####[facility],[address] [place] [address] Protein [Mass/Vol] 7.6 g/dL Normal 6.4 - 8.2 [facility] Comment on above: Performed By: #### 2 90961 ####[address] [address] Sodium [Moles/Vol] 137 mmol/L Normal 136 - 145 [facility] Comment on above: Performed By: #### 2 50457 ####[address],[place] [address] Urea nitrogen [Mass/Vol] 17 mg/dL Normal 7 - 18 [facility] Comment on above: Performed By: #### 2 05998 ####[facility],[address] [place] [address] CT KUB (KIDNEY STONE PROTOCO L)on 06-09-2024 CT KUB (KIDNEY STONE PROTOCOL) Normal [facility] PREG SERUM QUANTon 4 HCG QUANTITATIVE 6 mIU/mL Normal 0 - 6 [facility] Comment on above: Result Comment: Refe rence Range: Male: <5 Female: Non: <5 1 - 7 days : 5 - 50 1 - 2 weeks: 50 - 500 2 - 3 weeks: 100 - 5000 3 - 4 weeks: 500 - 10,000 4 - 5 weeks: 1000 - 50,000 5 - 6 weeks: 10,000 - 100,000 6 - 8 weeks: 15,000 - 200,000 2 - 3 months: 10,000 - 100,000 2ND TRIMESTER 3000-50,000 3RD TRIMESTER 1000-50,000 Performed By: #### 2 47048 ####[facility],[address] [place] [address] SERUM QUALon 06-09 EXTERNAL QC DONE? YES Normal [facility] Comment on above: Performed By: #### 2 33384 ####[facility],[address] [place] [address] INTERNAL QC PASS Normal [facility] Comment on above: Performed By: #### 2 51889 ####[facility],[address] [place], [place] [id number] SER Positive Normal NEGATIVE [facility] Comment on above: Performed By: #### 2 15535 ####[facility],[address] [place], [place] [id number] URINALYSISon 06-09-2024 Bilirubin Ql (U) Negative Normal NORMAL: NEGATIVE [facility] Comment on above: Performed By: #### 2 85559 ####[facility],[address] [place], [place] [id number] Clarity (U) clear Normal NORMAL: CLEAR [facility] Comment on above: Performed By: #### 2 90106 ####[facility],[address] [place] [address]344 Color (U) yellow Normal NORMAL: YELLOW [facility] Comment on above: Performed By: #### 2 38513 ####[facility],[address] [place] [address]663 Glucose Ql (U) NORM Normal NORMAL: NORMAL [facility] Comment on above: Performed By: #### 2 00703 ####[facility],[address] [place], [place] [address] Hemoglobin Ql (U) Negative Normal NORMAL: NEGATIVE [facility] Comment on above: Performed By: #### 2 71669 ####[facility],[address] [place], [place] [address] Ketone Negative Normal NORMAL: NEGATIVE [facility] Comment on above: Performed By: #### 2 95956 ####[facility],[address] [place] [address] Leukocytes Negative Normal NORMAL: NEGATIVE [facility] Comment on above: Performed By: #### 2 47090 ####[facility],[address] [place] [address] 48329 Nitrite Ql (U) Negative Normal NORMAL: NEGATIVE [facility] Comment on above: Performed By: #### 2 94556 ####[facility],[address] [place] [address] pH (U) 6 [pH] Normal NORMAL: 5.0-8.0 [facility] Comment on above: Performed By: #### 2 38962 ####[facility],[address] [place] [address] 80091 Protein Ql (U) Negative Normal NORMAL: NEGATIVE [facility] Comment on above: Performed By: #### 2 02153 ####[facility],[address] [place] [address] Sp [place] 1.020 Normal NORMAL: 1.010-1.030 [facility] Comment on above: Performed By: #### 2 20804 ####[facility],[address] [place] [address] Specimen Type R Normal [facility] Comment on above: Performed By: #### 2 30921 ####[facility],[address] [place] [address] Urinalysis dipstick W Reflex Microscopic panel (U) NOT INDICATED Normal [facility] Comment on above: Performed By: #### 2 85081 ####[facility],[address] [place] [address] Urobilinog NORM Normal NORMAL: NORMAL [facility] Comment on above: Performed By: #### 2 93212 ####[facility],[address] [place] [address] C-REACTIVE PROTEINon 024 CRP 0.94 mg/dl High 0.00 - 0.90 [facility] Comment on above: Performed By: #### 2 59949 ####[facility],[address] [place] [address] CBC + DIFFon 06-02-2024 Baso # 0.02 x10EE3/UL Normal 0.00 - 0.10 [facility] Comment on above: Performed By: #### 2 58997 ####[facility],[address] [place] [address] Basophils/100 WBC (Bld) 0.3 % Normal 0.0 - 2.0 [facility] Comment on above: Performed By: #### 2 32542 ####[facility],[address] [place] [address] CBC + DIFF Normal [facility] Comment on above: Result Comment: CBC- COMPLETE BLOOD COUNT Performed By: #### 2 35456 ####[facility],[address] [place] [address] EO # 0.19 x10EE3/UL Normal 0.00 - 0.50 [facility] Comment on above: Performed By: #### 2 57676 ####[facility],[address] [place] [address]324 Eosinophils/100 WBC (Bld) 2.9 % Normal 0.0 - 7.0 [facility] Comment on above: Performed By: #### 2 26295 ####[facility],[address] [place] [address] Erythrocyte distribution width (RBC) [Ratio] 12.8 % Normal 12.0 - 15.6 [facility] Comment on above: Performed By: #### 2 36003 ####[facility],[address] [place] [address] Hematocrit (Bld) [Volume fraction] 39.4 % Normal 34.0 - 46.0 [facility] Comment on above: Performed By: #### 2 25805 ####[facility],[address] [place] [address] Hemoglobin (Bld) [Mass/Vol] 13.3 g/dL Normal 12.0 - 16.0 [facility] Comment on above: Performed By: #### 2 53551 ####[facility],[address] [place] [address] Lymph # 2.10 x10EE3/UL Normal 0.80 - 2.80 [facility] Comment on above: Performed By: #### 2 25700 ####[facility],[address] [place] [address] Lymphocytes/100 WBC (Bld) 31.0 % Normal 20.0 - 45.0 [facility] Comment on above: Performed By: #### 2 27081 ####[facility],[address] [place], [place] [address] MANUAL DIFF N/A Normal [facility] Comment on above: Performed By: #### 2 06247 ####[facility],[address] [place] [address] MCH (RBC) [Entitic mass] 30 pg Normal 27 - 33 [facility] Comment on above: Performed By: #### 2 63630 ####[facility],[address] [place] [address] MCHC 34 X10 3 Normal 32 - 36 [facility] Comment on above: Performed By: #### 2 48656 ####[facility],[address] [place] [address]80 MCV (RBC) [Entitic vol] 90 fL Normal 80 - 99 [facility] Comment on above: Performed By: #### 2 74575 ####[facility],[address] [place] [address] [place] # 0.38 x10EE3/UL Normal 0.20 - 1.00 [facility] Comment on above: Performed By: #### 2 81019 ####[facility],[address] [place] [address] 374[address] MONOS % 5.7 % Normal 0.0 - 10.0 [facility] Comment on above: Performed By: #### 2 53447 ####[facility],[address] [place] [address]689 Morphology Adrian (Bld) [Interp] N/A Normal [facility] Comment on above: Performed By: #### 2 71949 ####[facility],[address] [place] [address]19 Neut # 4.07 x10EE3/UL Normal 1.50 - 7.10 [facility] Comment on above: Performed By: #### 2 94402 ####[facility],[address] [place] [address] Neutrophils/100 WBC (Bld) 60.2 % Normal 46.0 - 76.0 [facility] Comment on above: Performed By: #### 2 20976 ####[facility],[address] [place] [address]86 PLATELET 257 x10EE3/UL Normal 150 - 450 [facility] Comment on above: Performed By: #### 2 74793 ####[facility],[address] [place] [address] 22442 Platelet mean volume (Bld) [Entitic vol] 9.4 fL Normal 6.6 - 10.5 [facility] Comment on above: Result Comment: AUTO MATED DIFFERENTIAL Performed By: #### 2 68161 ####[facility],[address] [place] [address] 99996 RBC 4.38 x 10EE6/UL Normal 4.10 - 5.30 [facility] Comment on above: Performed By: #### 2 98345 ####[facility],[address] [place] [address]502 WBC 6.8 x 10EE3/UL Normal 4.5 - 10.8 [facility] Comment on above: Performed By: #### 2 51287 ####[facility],[address] [place], [place] [address] CMP with eGFRon 06-02-2024 AGE 43 years Normal [facility] Comment on above: Performed By: #### 2 84016 ####[facility],[address] [place] [address]250 Albumin [Mass/Vol] 3.8 g/dL Normal 3.4 - 5.0 [facility] Comment on above: Performed By: #### 2 67761 ####[facility],[address] [place] [address]403 Albumin/Globulin [Mass ratio] 1.1 {ratio} Normal 0.9 - 1.6 [facility] Comment on above: Performed By: #### 2 23443 ####[facility],[address] [place] [address] 40511 ALK PHOS 137 U/L High 46 - 116 [facility] Comment on above: Performed By: #### 2 01311 ####[facility],[address] [place] [address] 62791 ALT [Catalytic activity/Vol] 27 U/L Normal 16 - 63 [facility] Comment on above: Performed By: #### 2 49893 ####[facility],[address] [place] [address] Anion gap [Moles/Vol] 14 mmol/L Normal 10 - 20 [facility] Comment on above: Performed By: #### 2 70784 ####[facility],[address] [place] [address] AST [Catalytic activity/Vol] 19 U/L Normal 13 - 39 [facility] Comment on above: Performed By: #### 2 74017 ####[facility],[address] [place] [address] B/C RATIO 8 ratio Normal 0 - 30 [facility] Comment on above: Performed By: #### 2 76921 ####[facility],[address] [place] [address]6514 Bilirubin [Mass/Vol] 0.9 mg/dL Normal 0.2 - 1.0 [facility] Comment on above: Performed By: #### 2 28937 ####[facility],[address] [place] [address] 09285 Calcium [Mass/Vol] 8.9 mg/dL Normal 8.5 - 10.1 [facility] Comment on above: Performed By: #### 2 21833 ####[facility],[address] [place] [address] 77526 Chloride [Moles/Vol] 102 mmol/L Normal 98 - 107 [facility] Comment on above: Performed By: #### 2 68702 ####[facility],[address] [place], [place] [address] CMP with eGFR Normal [facility] Comment on above: Result Comment: COMP REHENSIVE METABOLIC PANEL Performed By: #### 2 04161 ####[facility],[address] [place] [address]354 CO2 [Moles/Vol] 26.9 mmol/L Normal 21.0 - 32.0 [facility] Comment on above: Performed By: #### 2 64064 ####[place] [id number] Creatinine [Mass/Vol] 0.95 mg/dL Normal 0.55 - 1.02 [facility] Comment on above: Performed By: #### 2 82043 ####[place] [address] GFR/1.73 sq M.predicted among non-blacks MDRD (S/P/Bld) [Vol rate/Area] mL/min/{1.73_m2} Normal 60 - 999 [facility] Comment on above: Performed By: #### 2 00348 ####[place] [address] Result Comment: ACCO RDING TO THE NATIONAL KIDNEY DISEASE EDUCATION PROGRAM(NKDE), A NORMAL eGFRIS A VALUE GREATER THAN OR EQUAL TO 60 ML/MIN/1.73 SQ METERS.CHRONIC KIDNEY DISEASE: <60mL/MIN/1.73 SQ METERSKIDNEY FAILURE: <15mL/MIN/1.73 SQ METERSTHIS TEST SHOULD ONLY BE USED FOR PATIENTS 18 YEARS OF AGE AND OLDER. Globulin (S) [Mass/Vol] 3.6 g/dL Normal 1.5 - 3.8 [facility] Comment on above: Performed By: #### 2 64986 ####[address] [address] Glucose [Mass/Vol] 109 mg/dL High 74 - 106 [facility] Comment on above: Performed By: #### 2 90437 ####[address] [address] Potassium [Moles/Vol] 3.9 mmol/L Normal 3.5 - 5.1 [facility] Comment on above: Performed By: #### 2 83515 ####[address] [address] Protein [Mass/Vol] 7.4 g/dL Normal 6.4 - 8.2 [facility] Comment on above: Performed By: #### 2 69893 ####[facility],[address] [place] [address] 68214 Sodium [Moles/Vol] 139 mmol/L Normal 136 - 145 [facility] Comment on above: Performed By: #### 2 29212 ####[place] [id number] Urea nitrogen [Mass/Vol] 8 mg/dL Normal 7 - 18 [facility] Comment on above: Performed By: #### 2 11629 ####[facility],[address] [place], [place] [address] CT ABDOMEN/PELVIS Won 2023 CT ABDOMEN/PELVIS W Normal [facility] LIPASEon 06-02-2024 Lipase [Catalytic activity/Vol] 36.0 U/L Normal 15.0 - 78.0 [facility] Comment on above: Result Comment: *PLE ASE NOTE THAT RANGES FOR LIPASE HAVE CHANGED OF 09/11/23 DUE TO AN ASSAYUPDATE BY THE ELECTRONICS REPAIR TECHNICIAN.THE NEW ASSAY RANGE IS 6-250 U/L, WITH A REFERENCERANGE OF 16-77 U/L. Performed By: #### 2 85473 ####[address] [address] TROPONIN I, HIGH SENSITIVITY on 06-02-2024 HS TROPONIN <4.0 Normal 0.0 - 51.4 [facility] Comment on above: Performed By: #### 2 94474 ####[address] [address] URINALYSISon 06-02-2024 Amorphous NONE Normal [facility] Comment on above: Performed By: #### 2 45590 ####[facility],[address] [place] [address] 32620 Bacteria TRACE Normal [facility] Comment on above: Performed By: #### 2 58537 ####[facility],[address] [place] [address] 05043 Bilirubin Ql (U) Negative Normal NORMAL: NEGATIVE [facility] Comment on above: Performed By: #### 2 49436 ####[facility],[address] [place] [address] 86969 Casts NONE Normal [facility] Comment on above: Performed By: #### 2 40040 ####[facility],[address] [place] [address] 38001 Clarity (U) clear Normal NORMAL: CLEAR [facility] Comment on above: Performed By: #### 2 19816 ####[facility],[address] [place] [address] 76944 Color (U) yellow Normal NORMAL: YELLOW [facility] Comment on above: Performed By: #### 2 43435 ####[facility],[address] [place] [address] 95381 Crystals LM Nom (Urine sed) NONE Normal [facility] Comment on above: Performed By: #### 2 48710 ####[facility],[address] [place] [address] 50445 Epi Cells FEW Normal [facility] Comment on above: Performed By: #### 2 43179 ####[facility],[address] [place] [address] 75618 Glucose Ql (U) NORM Normal NORMAL: NORMAL [facility] Comment on above: Performed By: #### 2 21122 ####[facility],[address] [place] [address] 79361 Hemoglobin Ql (U) 10 Abnormal NORMAL: NEGATIVE [facility] Comment on above: Performed By: #### 2 29857 ####[facility],[address] [place] [address] 57030 Ketone Negative Normal NORMAL: NEGATIVE [facility] Comment on above: Performed By: #### 2 39296 ####[facility],[address] [place], [place] [address] Leukocytes 100 Abnormal NORMAL: NEGATIVE [facility] Comment on above: Performed By: #### 2 89890 ####[facility],[address] [place] [address] Mucous 2+ Normal [facility] Comment on above: Performed By: #### 2 79834 ####[facility],[address] [place] [address] Nitrite Ql (U) Negative Normal NORMAL: NEGATIVE [facility] Comment on above: Performed By: #### 2 12423 ####[facility],[address] [place] [address] pH (U) 6 [pH] Normal NORMAL: 5.0-8.0 [facility] Comment on above: Performed By: #### 2 66828 ####[facility],[address] [place] [address] Protein Ql (U) Negative Normal NORMAL: NEGATIVE [facility] Comment on above: Performed By: #### 2 00565 ####[facility],[address] [place] [address] Rbc 0-5 Normal 0-3/hpf [facility] Comment on above: Performed By: #### 2 18217 ####[facility],[address] [place], [place] [address] Sp [place] 1.020 Normal NORMAL: 1.010-1.030 [facility] Comment on above: Performed By: #### 2 13884 ####[facility],[address] [place] [address] Specimen Type Void Normal [facility] Comment on above: Performed By: #### 2 65578 ####[facility],[address] [place] [address] 06293 Urinalysis dipstick W Reflex Microscopic panel (U) SEE BELOW Normal [facility] Comment on above: Result Comment: MICR OSCOPIC Performed By: #### 2 40134 ####[facility],[address] [place] [address] 18502 Urobilinog NORM Normal NORMAL: NORMAL [facility] Comment on above: Performed By: #### 2 25949 ####[facility],[address] [place] [address] 65368 Wbc 1-5 Normal 0-5/hpf [facility] Comment on above: Performed By: #### 2 72216 ####[facility],[address] [place] [address] 81468 Yeast 1+ Normal [facility] Comment on above: Performed By: #### 2 79541 ####[facility],[address] [place] [address] 14916 Abdomen/Pelvis without Conto n 05-28-2024 Abdomen/Pelvis without Cont Normal [facility] Amylaseon 05-28-2024 SAGE 29 U/L Normal 25-115 [facility] Comment on above: Performed By: #### L 500.4050, L501.2450, L100.0100, L503.6005, L501.2400 ####[facility] [address] [place], [address] CBC W/Diff, Automatedon 05-15 Absolute Lymph 3.28 X10 3/uL Normal 0.83-4.51 [facility] Comment on above: Performed By: #### L 500.4050, L501.2450, L100.0100, L503.6005, L501.2400 ####[facility] [address] [place], [address] Absolute Neut 3.9 X10 3/uL Normal 2.0-7.7 [facility] Comment on above: Performed By: #### L 500.4050, L501.2450, L100.0100, L503.6005, L501.2400 ####[facility] [address] [place], [address] Basophils/100 WBC (Bld) 0.4 % Normal 0-1 [facility] Comment on above: Performed By: #### L 500.4050, L501.2450, L100.0100, L503.6005, L501.2400 ####[facility] [address] [place], [address] Eosinophils/100 WBC (Bld) 2.3 % Normal 0-5 [facility] Comment on above: Performed By: #### L 500.4050, L501.2450, L100.0100, L503.6005, L501.2400 ####[facility] [address] [place], [address] Erythrocyte distribution width (RBC) [Ratio] 12.5 % Normal 11.6-14.6 [facility] Comment on above: Performed By: #### L 500.4050, L501.2450, L100.0100, L503.6005, L501.2400 ####[facility] [address] [place], [address] Hematocrit (Bld) [Volume fraction] 37.7 % Normal 37-47 [facility] Comment on above: Performed By: #### L 500.4050, L501.2450, L100.0100, L503.6005, L501.2400 ####[facility] [address] [place], [address] Hemoglobin (Bld) [Mass/Vol] 12.5 g/dL Normal 12.0-15.0 [facility] Comment on above: Performed By: #### L 500.4050, L501.2450, L100.0100, L503.6005, L501.2400 ####[facility] [address] [place], [address] IG% 0.300 Normal 0.0-0.9 [facility] Comment on above: Result Comment: IG% - Immature Granulocytes (promyelocytes, myelocytes andmetamyelocytes) > 1% indicates that a LEFT SHIFT is Present. Performed By: #### L 500.4050, L501.2450, L100.0100, L503.6005, L501.2400 ####[facility] [address] [place], [address] Lymphocytes/100 WBC (Bld) 41.3 % High 19-41 [facility] Comment on above: Performed By: #### L 500.4050, L501.2450, L100.0100, L503.6005, L501.2400 ####[facility] [address] [place], [address] MCH (RBC) [Entitic mass] 30.2 pg Normal 27.0-32.0 [facility] Comment on above: Performed By: #### L 500.4050, L501.2450, L100.0100, L503.6005, L501.2400 ####[facility] [address] [place], [address] MCHC (RBC) [Mass/Vol] 33.2 g/dL Normal 32-36 [facility] Comment on above: Performed By: #### L 500.4050, L501.2450, L100.0100, L503.6005, L501.2400 ####[facility] [address] [place], [address] MCV (RBC) [Entitic vol] 91.1 fL Normal 81-99 [facility] Comment on above: Performed By: #### L 500.4050, L501.2450, L100.0100, L503.6005, L501.2400 ####[facility] [address] [place], [address] Monocytes/100 WBC (Bld) 7.2 % Normal 0-10 [facility] Comment on above: Performed By: #### L 500.4050, L501.2450, L100.0100, L503.6005, L501.2400 ####[facility] [address] [place], [address] Neutrophils/100 WBC (Bld) 48.5 % Normal 47-70 [facility] Comment on above: Performed By: #### L 500.4050, L501.2450, L100.0100, L503.6005, L501.2400 ####[facility] [address] [place], [address] Nucleated RBC (Bld) [#/Vol] 0 10*3/uL Normal 0-5 [facility] Comment on above: Performed By: #### L 500.4050, L501.2450, L100.0100, L503.6005, L501.2400 ####[facility] [address] [place], [address] Platelet mean volume (Bld) [Entitic vol] 10.5 fL Normal 6.2-12.0 [facility] Comment on above: Performed By: #### L 500.4050, L501.2450, L100.0100, L503.6005, L501.2400 ####[facility] [address] [place], [address] Platelets (Bld) [#/Vol] 226 10*3/uL Normal 150-450 [facility] Comment on above: Performed By: #### L 500.4050, L501.2450, L100.0100, L503.6005, L501.2400 ####[facility] [address] [place], [address] RBC (Bld) [#/Vol] 4.14 10*6/uL Low 4.2-5.4 [facility] Comment on above: Performed By: #### L 500.4050, L501.2450, L100.0100, L503.6005, L501.2400 ####[facility] [address] [place], [address] RDW SD 41.5 fl Normal 35.1-43.9 [facility] Comment on above: Performed By: #### L 500.4050, L501.2450, L100.0100, L503.6005, L501.2400 ####[facility] [address] [place], [address] WBC (Bld) [#/Vol] 8.0 10*3/uL Normal 4.4-11.0 [facility] Comment on above: Performed By: #### L 500.4050, L501.2450, L100.0100, L503.6005, L501.2400 ####[facility] [address] [place], [address] Comprehensive [facility] 05-28-2024 Albumin [Mass/Vol] 3.8 g/dL Normal 3.2-5.0 [facility] Comment on above: Performed By: #### L 500.4050, L501.2450, L100.0100, L503.6005, L501.2400 ####[facility] [address] [place], [address] Albumin/Globulin [Mass ratio] 1.0 {ratio} Normal 0.9-2.4 [facility] Comment on above: Performed By: #### L 500.4050, L501.2450, L100.0100, L503.6005, L501.2400 ####[facility] [address] [place], [address] ALK P 116 U/L Normal 45-117 [facility] Comment on above: Performed By: #### L 500.4050, L501.2450, L100.0100, L503.6005, L501.2400 ####[facility] [address] [place], [address] ALT [Catalytic activity/Vol] 27 U/L Normal 13-56 [facility] Comment on above: Performed By: #### L 500.4050, L501.2450, L100.0100, L503.6005, L501.2400 ####[facility] [address] [place], [address] AST [Catalytic activity/Vol] 15 U/L Normal 15-37 [facility] Comment on above: Performed By: #### L 500.4050, L501.2450, L100.0100, L503.6005, L501.2400 ####[facility] [address] [place], [address] Bilirubin [Mass/Vol] 0.60 mg/dL Normal 0.20-1.00 [facility] Comment on above: Result Comment: For patients on eltrombopag therapy, use of Dimension [place] TBIL is not recommended. Performed By: #### L 500.4050, L501.2450, L100.0100, L503.6005, L501.2400 ####[facility] [address] [place], [address] BUN/CRE 9.3 RATIO Low 10-20 [facility] Comment on above: Performed By: #### L 500.4050, L501.2450, L100.0100, L503.6005, L501.2400 ####[facility] [address] [place], [address] CA,Total 9.2 mg/dL Normal 8.5-10.1 [facility] Comment on above: Performed By: #### L 500.4050, L501.2450, L100.0100, L503.6005, L501.2400 ####[facility] [address] [place], [address] Chloride [Moles/Vol] 106 mmol/L Normal 98-107 [facility] Comment on above: Performed By: #### L 500.4050, L501.2450, L100.0100, L503.6005, L501.2400 ####[facility] [address] [place], [address] CO2 [Moles/Vol] 25.0 mmol/L Normal 21.0-32.0 [facility] Comment on above: Performed By: #### L 500.4050, L501.2450, L100.0100, L503.6005, L501.2400 ####[facility] [address] [place], [address] Creatinine [Mass/Vol] 1.07 mg/dL High 0.55-1.02 [facility] Comment on above: Result Comment: The validity of the calculated GFR GFRAA in patients over70 years has not been determined. Clinical correlation isessential. Performed By: #### L 500.4050, L501.2450, L100.0100, L503.6005, L501.2400 ####[facility] [address] [place], [address] ECRCL 69.82 ml/min Normal [facility] Comment on above: Performed By: #### L 500.4050, L501.2450, L100.0100, L503.6005, L501.2400 ####[facility] [address] [place], [address] EST GFR - AA 71 mL/min Normal >60 [facility] Comment on above: Result Comment: Afri can [place]an GFR Calc Performed By: #### L 500.4050, L501.2450, L100.0100, L503.6005, L501.2400 ####[facility] [address] [place], [address] GAP 8 Normal 5-15 [facility] Comment on above: Performed By: #### L 500.4050, L501.2450, L100.0100, L503.6005, L501.2400 ####[facility] [address] [place], [address] GFR/1.73 sq M.predicted among non-blacks MDRD (S/P/Bld) [Vol rate/Area] 59 mL/min/{1.73_m2} Low >60 [facility] Comment on above: Result Comment: Non- GFR Calc Performed By: #### L 500.4050, L501.2450, L100.0100, L503.6005, L501.2400 ####[facility] [address] [place], [address] Globulin (S) [Mass/Vol] 3.7 g/dL Normal 2.2-4.2 [facility] Comment on above: Performed By: #### L 500.4050, L501.2450, L100.0100, L503.6005, L501.2400 ####[facility] [address] [place], [address] Glucose [Mass/Vol] 117 mg/dL High 74-106 [facility] Comment on above: Result Comment: Fast ing Glucose result from 100 to 125 mg/dLsuggests IMPAIRED HOMEOSTASIS per A.D.A. criteria. Performed By: #### L 500.4050, L501.2450, L100.0100, L503.6005, L501.2400 ####[facility] [address] [place], [address] Potassium [Moles/Vol] 3.4 mmol/L Low 3.5-5.1 [facility] Comment on above: Performed By: #### L 500.4050, L501.2450, L100.0100, L503.6005, L501.2400 ####[facility] [address] [place], [address] Sodium [Moles/Vol] 139 mmol/L Normal 136-145 [facility] Comment on above: Performed By: #### L 500.4050, L501.2450, L100.0100, L503.6005, L501.2400 ####[facility] [address] [place], [address] T PROT 7.5 g/dL Normal 6.4-8.2 [facility] Comment on above: Performed By: #### L 500.4050, L501.2450, L100.0100, L503.6005, L501.2400 ####[facility] [address] [place], [address] Urea nitrogen [Mass/Vol] 10 mg/dL Normal 7-18 [facility] Comment on above: Performed By: #### L 500.4050, L501.2450, L100.0100, L503.6005, L501.2400 ####[facility] [address] [place], [address] Emergency Department Summary on 05-28-2024 Emergency Department Summary Normal [facility] Lactic Acidon 05-28-2024 Lactate [Moles/Vol] 0.6 mmol/L Normal 0.4-1.9 [facility] Comment on above: Order Comment: Y Performed By: #### L 500.4050, L501.2450, L100.0100, L503.6005, L501.2400 ####[facility] [address] [place], [address] Lipaseon 05-28-2024 Lipase [Catalytic activity/Vol] 54 U/L Normal 13-75 [facility] Comment on above: Result Comment: Jay mortensen note:LIPASE revised reference range effective 22.New Lipase methodology. Expected to produce lower valuesthan the previous assay method.NEW Reference Range: 13 - 75 U/L Performed By: #### L 500.4050, L501.2450, L100.0100, L503.6005, L501.2400 ####[facility] [address] [place], [address] Urinalysis, Completeon 05-28 EPI,SQUAMOUS 0-5 SEEN Normal 5-10 [facility] Comment on above: Order Comment: CLEAN CATCH Performed By: #### L 400.0001 ####[facility] [address] [place], [address] RBC 0-5 SEEN Normal 0-5 [facility] Comment on above: Order Comment: CLEAN CATCH Performed By: #### L 400.0001 ####[facility] [address] [place], [address] BACTERIA 0 SEEN Normal None Seen [facility] Comment on above: Order Comment: CLEAN CATCH Performed By: #### L 400.0001 ####[facility] [address] [place], [address] Mucus Ql (Urine sed) 0 SEEN Normal [facility] Comment on above: Order Comment: CLEAN CATCH Performed By: #### L 400.0001 ####[facility] [address] [place], [address] WBC 0 SEEN Normal 0-5 [facility] Comment on above: Order Comment: CLEAN CATCH Performed By: #### L 400.0001 ####[facility] [address] [place], [address] Colonoscopy Reporton 024 Colonoscopy Report Normal [facility] EGD Reporton 05-27-2024 EGD Report Normal [facility] H Pylori (initial)on 09-13-2 024 H Pylori (initial) Normal [facility] Comment on above: Performed By: #### P H.PYLORI ####[facility] [address] [place], [place], [address] MR/POSTOP.ANEon 05-27-2024 MR/POSTOP.ANE Normal [facility] MR/KHXXWESN3xt 05-27-2024 MR/POSTOPAN2 Normal [facility] Special Stain Group Ion - Special Stain Group I Normal [facility] Comment on above: Performed By: #### P SSI ####[facility] [address] [place], [place], [address] [facility] 05-25-2024 CNPN Telephone (INTMWS) -------- SALLY VARGAS ([id number]) 1980 F Date Time Provider Department 05/25/24 SILVERIO HALEY INTWS During your visit today, we recorded the following information about you: Cara Hernandez LPN 05/25/2024 11:46 AM Signed Patient is requesting a higher dose of her migraine injection (sumatripan). PATIENT stated that stated if she needed to calling to get her dosage increased. Please review advise DAVID Castillo Krystle, RN 05/25/2024 2:31 PM Signed Patient calls to check on status of request below. Notified patient request was sent to provider and waiting for review. Patient verbalizes understanding. VIN Hood Krystle, VIN 05/25/2024 4:52 PM Signed Patient calls back and asks that this message be sent urgent to provider. Injections are helping. She just needs a little stronger dose of sumatriptan for migraine relief. Please review and advise, VIN Hood Stephanie, RN 05/26/2024 9:13 AM Signed Patient calls back to see if provider has responded to request. Notified patient that provider still has not advised on request. VIN Townsend Deepa EddyDAVID 05/27/2024 11:17 AM Signed Pt calls again asking if doctor had answered her request for increase as of yet . I explained was not answered as of yet. Brittnee Barraza LPN 05/27/2024 12:56 PM Signed Encounter printed for Provider to address. DAVID Torrez Liza D, MD 05/27/2024 1:17 PM Signed 6 mg is the max dose on the Imitrex. 6 mg is the highest dose and 12mg per day is the most can be taken. . My message that was to be conveyed was that there were lower doses if the 6mg dose was not tolerated. How often is she having migraines? She had requested switch to shots to see if would last longer. Would she prefer another triptan than could last longer, like Amerge or Relpax? Or do I need to refer her to our [facility] (neurology)? Whit Guardado LPN 05/27/2024 1:23 PM Signed Phoned patient left message to return call and ask to speak to a nurse. Ivanna Torre RN 05/27/2024 4:20 PM Signed Patient returns call and provider message reviewed. Patient is not certain what she would like to do. She had a colonoscopy done today and will call back next week to discuss once she is able to think about it but she is not interested in a neurology referral for now. Will call back next week and let us know what she decides in terms of medication but for now will leave medication as is. VIN Hood Liza D, MD 05/27/2024 6:56 PM Signed Noted. Silverio Haley MD Allergies As of Date: 05/25/2024 Noted Allergy Reaction ASPIRIN 05/26/2019 16 - Unknown PENICILLINS 12/07/2009 2 - Rash CEPHALEXIN 10/20/2019 9 - Itching CHLORHEXIDINE 10/29/2016 2 - Rash Comments: Skin rash CIPROFLOXACIN 01/19/2024 2 - Rash Comments: Unclear if the pruritic areas of rash were related to medication or not, no prior use IODINATED CONTRAST MEDIA 02/09/2023 10 - Anaphylaxis TORADOL (KETOROLAC) 05/25/2020 2 - Rash ASA (SALICYLATES) 01/27/2011 14 - Other: See Comments Comments: ulcers CONTRAST DYE (IODINE) 05/17/2008 12 - Shortness of Breath DICYCLOMINE 04/01/2023 4 - Hives IBUPROFEN 06/18/2016 8 - GI Upset Date Reviewed: 03/31/2024 Reviewed by: Marcelino 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 May repeat dose after 1 hour if needed. Maximum daily dose is 12 mg per day. - pantoprazole DR (PROTONIX) 40 mg tablet Take 1 tablet by mouth daily before breakfast. Take on empty stomach, 1/2 hr before meal. - ARIPiprazole (ABILIFY) 10 mg tablet Take 10 mg by mouth once daily. - ibuprofen (MOTRIN) 600 mg tablet Take 600 mg by mouth every 6 hours as needed for pain. - hyoscyamine sulfate 0.125 mg ODT Take 0.125 mg by mouth every 4 hours. - LORazepam (ATIVAN) 0.5 mg Take 0.5 mg by mouth once daily as needed. - Mesalamine (LIALDA) 1.2 gram EC tablet Take 1,200 mg by mouth once daily. - traZODone (DESYREL) 50 mg tablet Take 50 mg by mouth daily at bedtime. - cetirizine (ZYRTEC) 10 mg tablet Take 1 tablet by mouth once daily. for itching. - Psyllium Seed-Sucrose (METAMUCIL, SUGAR,) Take per package directions - promethazine (PHENERGAN) 25 mg tablet Take 1 tablet by mouth every 8 hours as needed for nausea/vomiting. - cqkwhs-hwftkbow-kqdxret (CREON 3) 3,000-9,500- 15,000 unit delayed release capsule Take 1 capsule by mouth three times a day with meals. - gabapentin (NEURONTIN) 400 mg capsule Take 1 capsule by mouth every 12 hours. - famotidine (PEPCID) 40 m (more content not included)... Normal [facility] CBC + DIFFon 05-16-2024 Baso # 0.02 x10EE3/UL Normal 0.00 - 0.10 [facility] Comment on above: Performed By: #### 2 89958 ####[facility],[address] [place] [address] Basophils/100 WBC (Bld) 0.2 % Normal 0.0 - 2.0 [facility] Comment on above: Performed By: #### 2 35339 ####[facility],[address] [place] [address] CBC + DIFF Normal [facility] Comment on above: Result Comment: CBC- COMPLETE BLOOD COUNT Performed By: #### 2 35982 ####[facility],[address] [place] [address] EO # 0.25 x10EE3/UL Normal 0.00 - 0.50 [facility] Comment on above: Performed By: #### 2 94666 ####[facility],[address] [place] [address] Eosinophils/100 WBC (Bld) 2.8 % Normal 0.0 - 7.0 [facility] Comment on above: Performed By: #### 2 79112 ####[facility],[address] [place] [address] Erythrocyte distribution width (RBC) [Ratio] 13.2 % Normal 12.0 - 15.6 [facility] Comment on above: Performed By: #### 2 46751 ####[facility],[address] [place] [address] Hematocrit (Bld) [Volume fraction] 37.4 % Normal 34.0 - 46.0 [facility] Comment on above: Performed By: #### 2 41992 ####[facility],[address] [place], [place] [address] Hemoglobin (Bld) [Mass/Vol] 13.1 g/dL Normal 12.0 - 16.0 [facility] Comment on above: Performed By: #### 2 69807 ####[facility],[address] [place] [address] Lymph # 2.71 x10EE3/UL Normal 0.80 - 2.80 [facility] Comment on above: Performed By: #### 2 57435 ####[facility],[address] [place] [address] Lymphocytes/100 WBC (Bld) 30.7 % Normal 20.0 - 45.0 [facility] Comment on above: Performed By: #### 2 47564 ####[facility],[address] [place] [address] MANUAL DIFF N/A Normal [facility] Comment on above: Performed By: #### 2 23851 ####[facility],[address] [place], [place] [address] MCH (RBC) [Entitic mass] 31 pg Normal 27 - 33 [facility] Comment on above: Performed By: #### 2 14666 ####[facility],[address] [place] [address] MCHC 35 X10 3 Normal 32 - 36 [facility] Comment on above: Performed By: #### 2 36712 ####[facility],[address] [place] [address] MCV (RBC) [Entitic vol] 87 fL Normal 80 - 99 [facility] Comment on above: Performed By: #### 2 16936 ####[facility],[address] [place] [address]355 [place] # 0.53 x10EE3/UL Normal 0.20 - 1.00 [facility] Comment on above: Performed By: #### 2 45653 ####[facility],[address] [place] [address] 27378 MONOS % 6.0 % Normal 0.0 - 10.0 [facility] Comment on above: Performed By: #### 2 89973 ####[facility],[address] [place] [address] 65290 Morphology Adrian (Bld) [Interp] N/A Normal [facility] Comment on above: Performed By: #### 2 18081 ####[facility],[address] [place] [address]606 Neut # 5.31 x10EE3/UL Normal 1.50 - 7.10 [facility] Comment on above: Performed By: #### 2 10297 ####[facility],[address] [place] [address]742 Neutrophils/100 WBC (Bld) 60.2 % Normal 46.0 - 76.0 [facility] Comment on above: Performed By: #### 2 47388 ####[facility],[address] [place] [address] 25828 PLATELET 247 x10EE3/UL Normal 150 - 450 [facility] Comment on above: Performed By: #### 2 73746 ####[facility],[address] [place] [address] Platelet mean volume (Bld) [Entitic vol] 8.0 fL Normal 6.6 - 10.5 [facility] Comment on above: Result Comment: AUTO MATED DIFFERENTIAL Performed By: #### 2 75536 ####[facility],[address] [place] [address] 26348 RBC 4.28 x 10EE6/UL Normal 4.10 - 5.30 [facility] Comment on above: Performed By: #### 2 03454 ####[facility],[address] [place] [address] 87998 WBC 8.8 x 10EE3/UL Normal 4.5 - 10.8 [facility] Comment on above: Performed By: #### 2 22861 ####[facility],[address] [place] [address] 68138 CMP with eGFRon 05-16-2024 AGE 43 years Normal [facility] Comment on above: Performed By: #### 2 89408 ####[facility],[address] [place] [address] 49679 Albumin [Mass/Vol] 3.9 g/dL Normal 3.4 - 5.0 [facility] Comment on above: Performed By: #### 2 74215 ####[facility],[address] [place] [address]2231 Albumin/Globulin [Mass ratio] 1.1 {ratio} Normal 0.9 - 1.6 [facility] Comment on above: Performed By: #### 2 58648 ####[facility],[address] [place] [address] 89107 ALK PHOS 115 U/L Normal 46 - 116 [facility] Comment on above: Performed By: #### 2 41345 ####[facility],[address] [place] [address] 64630 ALT [Catalytic activity/Vol] 27 U/L Normal 16 - 63 [facility] Comment on above: Performed By: #### 2 84258 ####[facility],[address] [place] [address] 95218 Anion gap [Moles/Vol] 12 mmol/L Normal 10 - 20 [facility] Comment on above: Performed By: #### 2 55390 ####[facility],[address] [place] [address] 40584 AST [Catalytic activity/Vol] 15 U/L Normal 13 - 39 [facility] Comment on above: Performed By: #### 2 64460 ####[facility],[address] [place] [address] 40260 B/C RATIO 10 ratio Normal 0 - 30 [facility] Comment on above: Performed By: #### 2 05376 ####[facility],[address] [place] [address] 07024 Bilirubin [Mass/Vol] 0.7 mg/dL Normal 0.2 - 1.0 [facility] Comment on above: Performed By: #### 2 48724 ####[facility],[address] [place] [address] 39240 Calcium [Mass/Vol] 8.8 mg/dL Normal 8.5 - 10.1 [facility] Comment on above: Performed By: #### 2 22383 ####[facility],[address] [place] [address] 28280 Chloride [Moles/Vol] 102 mmol/L Normal 98 - 107 [facility] Comment on above: Performed By: #### 2 42709 ####[facility],[address] [place] [address] 86794 CMP with eGFR Normal [facility] Comment on above: Result Comment: COMP REHENSIVE METABOLIC PANEL Performed By: #### 2 76402 ####[facility],[address] [place] [address] 23874 CO2 [Moles/Vol] 27.1 mmol/L Normal 21.0 - 32.0 [facility] Comment on above: Performed By: #### 2 33187 ####[facility],[address] [place] [address] 37217 Creatinine [Mass/Vol] 1.15 mg/dL High 0.55 - 1.02 [facility] Comment on above: Performed By: #### 2 87067 ####[facility],[address] [place] [address] 60427 eGFR 51 ML/MINUTE Low 60 - 999 [facility] Comment on above: Performed By: #### 2 40149 ####[facility],[address] [place] [address] 42467 GFR/1.73 sq M.predicted among non-blacks MDRD (S/P/Bld) [Vol rate/Area] mL/min/{1.73_m2} Normal 60 - 999 [facility] Comment on above: Result Comment: ACCO RDING TO THE NATIONAL KIDNEY DISEASE EDUCATION PROGRAM(NKDE), A NORMAL eGFRIS A VALUE GREATER THAN OR EQUAL TO 60 ML/MIN/1.73 SQ METERS.CHRONIC KIDNEY DISEASE: <60mL/MIN/1.73 SQ METERSKIDNEY FAILURE: <15mL/MIN/1.73 SQ METERSTHIS TEST SHOULD ONLY BE USED FOR PATIENTS 18 YEARS OF AGE AND OLDER. Performed By: #### 2 70893 ####[facility],[address] [place] [address] 78380 Globulin (S) [Mass/Vol] 3.7 g/dL Normal 1.5 - 3.8 [facility] Comment on above: Performed By: #### 2 64990 ####[address] [address] Glucose [Mass/Vol] 96 mg/dL Normal 74 - 106 [facility] Comment on above: Performed By: #### 2 53184 ####[facility],[address] [place] [address] 71667 Potassium [Moles/Vol] 3.7 mmol/L Normal 3.5 - 5.1 [facility] Comment on above: Performed By: #### 2 67271 ####[facility],[address] [place] [address] 03491 Protein [Mass/Vol] 7.6 g/dL Normal 6.4 - 8.2 [facility] Comment on above: Performed By: #### 2 05130 ####[facility],[address] [place] [address] 42805 Sodium [Moles/Vol] 137 mmol/L Normal 136 - 145 [facility] Comment on above: Performed By: #### 2 55169 ####[facility] [facility],[address] [place] [address] 49936 Urea nitrogen [Mass/Vol] 12 mg/dL Normal 7 - 18 [facility] Comment on above: Performed By: #### 2 85369 ####[facility],[address] [place] [address] CT ABDOMEN/PELVIS WOon 05-16 CT ABDOMEN/PELVIS WO Normal [facility] LIPASEon 05-16-2024 Lipase [Catalytic activity/Vol] 35.0 U/L Normal 15.0 - 78.0 [facility] Comment on above: Result Comment: *PLE ASE NOTE THAT RANGES FOR LIPASE HAVE CHANGED OF 09/11/23 DUE TO AN ASSAYUPDATE BY THE ELECTRONICS REPAIR TECHNICIAN.THE NEW ASSAY RANGE IS 6-250 U/L, WITH A REFERENCERANGE OF 16-77 U/L. Performed By: #### 2 07453 ####[facility],[address] [place] [address] URINALYSISon 05-16-2024 Amorphous NONE Normal [facility] Comment on above: Performed By: #### 2 88559 ####[facility],[address] [place] [address] Bacteria 2+ Normal [facility] Comment on above: Performed By: #### 2 22867 ####[facility],[address] [place] [address] Bilirubin Ql (U) Negative Normal NORMAL: NEGATIVE [facility] Comment on above: Performed By: #### 2 46246 ####[facility],[address] [place] [address] Casts SEE BELOW Normal [facility] Comment on above: Performed By: #### 2 32711 ####[facility],[address] [place] [address] Clarity (U) clear Normal NORMAL: CLEAR [facility] Comment on above: Performed By: #### 2 15876 ####[facility],[address] [place], [place] [id number] Color (U) yellow Normal NORMAL: YELLOW [facility] Comment on above: Performed By: #### 2 14839 ####[facility],[address] [place] [address] 84744 Crystals LM Nom (Urine sed) NONE Normal [facility] Comment on above: Performed By: #### 2 09886 ####[facility],[address] [place] [address]1981 Epi Cells MANY Normal [facility] Comment on above: Performed By: #### 2 38431 ####[facility],[address] [place], [place] [id number] Glucose Ql (U) NORM Normal NORMAL: NORMAL [facility] Comment on above: Performed By: #### 2 45134 ####[facility],[address] [place], [place] [address] Hemoglobin Ql (U) 150 Abnormal NORMAL: NEGATIVE [facility] Comment on above: Performed By: #### 2 01628 ####[facility],[address] [place], [place] [address] Ketone Negative Normal NORMAL: NEGATIVE [facility] Comment on above: Performed By: #### 2 47381 ####[facility],[address] [place] [address] 13044 Leukocytes 500 Abnormal NORMAL: NEGATIVE [facility] Comment on above: Performed By: #### 2 56788 ####[facility],[address] [place] [address] 09316 Mucous NONE Normal [facility] Comment on above: Performed By: #### 2 29315 ####[facility],[address] [place] [address] 99985 Nitrite Ql (U) Negative Normal NORMAL: NEGATIVE [facility] Comment on above: Performed By: #### 2 97234 ####[facility],[address] [place] [address] 53466 pH (U) 6 [pH] Normal NORMAL: 5.0-8.0 [facility] Comment on above: Performed By: #### 2 37184 ####[facility],[address] [place] [address] Protein Ql (U) 15 Abnormal NORMAL: NEGATIVE [facility] Comment on above: Performed By: #### 2 45538 ####[facility],[address] [place] [address] Rbc 5-10 Normal 0-3/hpf [facility] Comment on above: Performed By: #### 2 43468 ####[facility],[address] [place] [address] Sp [place] 1.025 Normal NORMAL: 1.010-1.030 [facility] Comment on above: Performed By: #### 2 38675 ####[facility],[address] [place] [address] Specimen Type Void Normal [facility] Comment on above: Performed By: #### 2 62816 ####[facility],[address] [place] [address] Urinalysis dipstick W Reflex Microscopic panel (U) SEE BELOW Normal [facility] Comment on above: Result Comment: MICR OSCOPIC Performed By: #### 2 31044 ####[facility],[address] [place] [address] Urobilinog NORM Normal NORMAL: NORMAL [facility] Comment on above: Performed By: #### 2 94570 ####[facility],[address] [place] [address] Wbc 11-15 Normal 0-5/hpf [facility] Comment on above: Performed By: #### 2 64147 ####[facility],[address] [place] [address] Yeast NONE Normal [facility] Comment on above: Performed By: #### 2 04941 ####[facility],[address] [place] [address] AMYLASEon 05-14-2024 Amylase [Catalytic activity/Vol] 31 U/L Normal 25 - 115 [facility] Comment on above: Performed By: #### 2 85588 ####[facility],[address] [place] [address] CBC + DIFFon 05-14-2024 Baso # 0.02 x10EE3/UL Normal 0.00 - 0.10 [facility] Comment on above: Performed By: #### 2 84704 ####[facility],[address] [place] [address] 40683 Basophils/100 WBC (Bld) 0.2 % Normal 0.0 - 2.0 [facility] Comment on above: Performed By: #### 2 11900 ####[facility],[address] [place] [address] CBC + DIFF Normal [facility] Comment on above: Result Comment: CBC- COMPLETE BLOOD COUNT Performed By: #### 2 52245 ####[facility],[address] [place] [address] EO # 0.31 x10EE3/UL Normal 0.00 - 0.50 [facility] Comment on above: Performed By: #### 2 81946 ####[facility],[address] [place] [address] Eosinophils/100 WBC (Bld) 2.9 % Normal 0.0 - 7.0 [facility] Comment on above: Performed By: #### 2 47465 ####[facility],[address] [place] [address] Erythrocyte distribution width (RBC) [Ratio] 13.4 % Normal 12.0 - 15.6 [facility] Comment on above: Performed By: #### 2 93882 ####[facility],[address] [place] [address] Hematocrit (Bld) [Volume fraction] 39.5 % Normal 34.0 - 46.0 [facility] Comment on above: Performed By: #### 2 95657 ####[facility],[address] [place] [address] Hemoglobin (Bld) [Mass/Vol] 13.6 g/dL Normal 12.0 - 16.0 [facility] Comment on above: Performed By: #### 2 63213 ####[facility],[address] [place] [address] Lymph # 3.59 x10EE3/UL High 0.80 - 2.80 [facility] Comment on above: Performed By: #### 2 72889 ####[facility],[address] [place] [address] Lymphocytes/100 WBC (Bld) 34.6 % Normal 20.0 - 45.0 [facility] Comment on above: Performed By: #### 2 42135 ####[facility],[address] [place] [address] MANUAL DIFF N/A Normal [facility] Comment on above: Performed By: #### 2 85601 ####[facility],[address] [place] [address] MCH (RBC) [Entitic mass] 31 pg Normal 27 - 33 [facility] Comment on above: Performed By: #### 2 30407 ####[facility],[address] [place] [address] MCHC 35 X10 3 Normal 32 - 36 [facility] Comment on above: Performed By: #### 2 44865 ####[facility],[address] [place] [address] MCV (RBC) [Entitic vol] 89 fL Normal 80 - 99 [facility] Comment on above: Performed By: #### 2 34956 ####[facility],[address] [place] [address] [place] # 0.57 x10EE3/UL Normal 0.20 - 1.00 [facility] Comment on above: Performed By: #### 2 61136 ####[facility],[address],[place] [address] MONOS % 5.5 % Normal 0.0 - 10.0 [facility] Comment on above: Performed By: #### 2 42480 ####[facility],[address] [place] [address] 45976 Morphology Adrian (Bld) [Interp] N/A Normal [facility] Comment on above: Performed By: #### 2 48391 ####[facility],[address] [place] [address] Neut # 5.91 x10EE3/UL Normal 1.50 - 7.10 [facility] Comment on above: Performed By: #### 2 44986 ####[place] [address] Neutrophils/100 WBC (Bld) 56.9 % Normal 46.0 - 76.0 [facility] Comment on above: Performed By: #### 2 98133 ####[place] [address] PLATELET 260 x10EE3/UL Normal 150 - 450 [facility] Comment on above: Performed By: #### 2 60798 ####[place] [address] Platelet mean volume (Bld) [Entitic vol] 8.3 fL Normal 6.6 - 10.5 [facility] Comment on above: Result Comment: AUTO MATED DIFFERENTIAL Performed By: #### 2 61530 ####[place] [address] RBC 4.42 x 10EE6/UL Normal 4.10 - 5.30 [facility] Comment on above: Performed By: #### 2 26094 ####[place] [id number] WBC 10.4 x 10EE3/UL Normal 4.5 - 10.8 [facility] Comment on above: Performed By: #### 2 05667 ####[address],[place] [address] CMP with eGFRon 05-14-2024 AGE 43 years Normal [facility] Comment on above: Performed By: #### 2 45169 ####[facility],[address] [place] [address] 97815 Albumin [Mass/Vol] 3.9 g/dL Normal 3.4 - 5.0 [facility] Comment on above: Performed By: #### 2 46538 ####[facility],[address] [place] [address] 34909 Albumin/Globulin [Mass ratio] 1.0 {ratio} Normal 0.9 - 1.6 [facility] Comment on above: Performed By: #### 2 16391 ####[facility],[address] [place] [address] 08165 ALK PHOS 121 U/L High 46 - 116 [facility] Comment on above: Performed By: #### 2 68156 ####[facility],[address] [place] [address] 05538 ALT [Catalytic activity/Vol] 28 U/L Normal 16 - 63 [facility] Comment on above: Performed By: #### 2 32827 ####[facility],[address] [place] [address] 07258 Anion gap [Moles/Vol] 6 mmol/L Low 10 - 20 [facility] Comment on above: Performed By: #### 2 12390 ####[facility],[address] [place] [address] 67149 AST [Catalytic activity/Vol] 17 U/L Normal 13 - 39 [facility] Comment on above: Performed By: #### 2 97914 ####[facility],[address] [place] [address] 18742 B/C RATIO 11 ratio Normal 0 - 30 [facility] Comment on above: Performed By: #### 2 22352 ####[facility],[address] [place] [address] 03068 Bilirubin [Mass/Vol] 0.7 mg/dL Normal 0.2 - 1.0 [facility] Comment on above: Performed By: #### 2 60285 ####[facility],[address] [place] [address] 02370 Calcium [Mass/Vol] 8.9 mg/dL Normal 8.5 - 10.1 [facility] Comment on above: Performed By: #### 2 68308 ####[facility],[address] [place] [address] 20967 Chloride [Moles/Vol] 99 mmol/L Normal 98 - 107 [facility] Comment on above: Performed By: #### 2 13834 ####[facility],[address] [place] [address] 83991 CMP with eGFR Normal [facility] Comment on above: Result Comment: COMP REHENSIVE METABOLIC PANEL Performed By: #### 2 70312 ####[facility],[address] [place] [address] 84631 CO2 [Moles/Vol] 29.8 mmol/L Normal 21.0 - 32.0 [facility] Comment on above: Performed By: #### 2 28415 ####[facility],[address] [place] [address] 80002 Creatinine [Mass/Vol] 1.22 mg/dL High 0.55 - 1.02 [facility] Comment on above: Performed By: #### 2 10764 ####[facility],[address] [place] [address] 64659 eGFR 48 ML/MINUTE Low 60 - 999 [facility] Comment on above: Performed By: #### 2 80574 ####[facility],[address] [place] [address] 24298 eGFR(AA) 58 ML/MINUTE Low 60 - 999 [facility] Comment on above: Result Comment: ACCO RDING TO THE NATIONAL KIDNEY DISEASE EDUCATION PROGRAM(NKDE), A NORMAL eGFRIS A VALUE GREATER THAN OR EQUAL TO 60 ML/MIN/1.73 SQ METERS.CHRONIC KIDNEY DISEASE: <60mL/MIN/1.73 SQ METERSKIDNEY FAILURE: <15mL/MIN/1.73 SQ METERSTHIS TEST SHOULD ONLY BE USED FOR PATIENTS 18 YEARS OF AGE AND OLDER. Performed By: #### 2 36777 ####[address] [address] Globulin (S) [Mass/Vol] 3.8 g/dL Normal 1.5 - 3.8 [facility] Comment on above: Performed By: #### 2 53930 ####[address] [address] Glucose [Mass/Vol] 101 mg/dL Normal 74 - 106 [facility] Comment on above: Performed By: #### 2 45646 ####[address] [address] Potassium [Moles/Vol] 3.7 mmol/L Normal 3.5 - 5.1 [facility] Comment on above: Performed By: #### 2 21817 ####[address] [address] Protein [Mass/Vol] 7.7 g/dL Normal 6.4 - 8.2 [facility] Comment on above: Performed By: #### 2 68920 ####[address] [address] Sodium [Moles/Vol] 131 mmol/L Low 136 - 145 [facility] Comment on above: Performed By: #### 2 16597 ####[address] [address] Urea nitrogen [Mass/Vol] 13 mg/dL Normal 7 - 18 [facility] Comment on above: Performed By: #### 2 79383 ####[address] [address] LIPASEon 05-14-2024 Lipase [Catalytic activity/Vol] 46.0 U/L Normal 15.0 - 78.0 [facility] Comment on above: Result Comment: *PLE ASE NOTE THAT RANGES FOR LIPASE HAVE CHANGED OF 09/11/23 DUE TO AN ASSAYUPDATE BY THE ELECTRONICS REPAIR TECHNICIAN.THE NEW ASSAY RANGE IS 6-250 U/L, WITH A REFERENCERANGE OF 16-77 U/L. Performed By: #### 2 83434 ####[facility],[address] [place], [place] [id number] URINALYSISon 05-14-2024 Bilirubin Ql (U) Negative Normal NORMAL: NEGATIVE [facility] Comment on above: Performed By: #### 2 29194 ####[facility],[address] [place], [place] [address] Clarity (U) clear Normal NORMAL: CLEAR [facility] Comment on above: Performed By: #### 2 47330 ####[facility],[address] [place], [place] [address] Color (U) yellow Normal NORMAL: YELLOW [facility] Comment on above: Performed By: #### 2 39450 ####[place] [id number] Glucose Ql (U) NORM Normal NORMAL: NORMAL [facility] Comment on above: Performed By: #### 2 42417 ####[facility],[address] [place] [address] 87540 Hemoglobin Ql (U) Negative Normal NORMAL: NEGATIVE [facility] Comment on above: Performed By: #### 2 45939 ####[facility],[address] [place] [address] 55818 Ketone Negative Normal NORMAL: NEGATIVE [facility] Comment on above: Performed By: #### 2 54946 ####[facility],[address] [place] [address] 09960 Leukocytes Negative Normal NORMAL: NEGATIVE [facility] Comment on above: Performed By: #### 2 51525 ####[facility],[address] [place] [address] Nitrite Ql (U) Negative Normal NORMAL: NEGATIVE [facility] Comment on above: Performed By: #### 2 98967 ####[facility],[address] [place] [address] pH (U) 5 [pH] Normal NORMAL: 5.0-8.0 [facility] Comment on above: Performed By: #### 2 83548 ####[facility],[address] [place] [address] Protein Ql (U) 15 Abnormal NORMAL: NEGATIVE [facility] Comment on above: Performed By: #### 2 59785 ####[facility],[address] [place] [address] Sp [place] 1.025 Normal NORMAL: 1.010-1.030 [facility] Comment on above: Performed By: #### 2 25191 ####[facility],[address] [place] [address] Specimen Type UNSPECIFIED Normal [facility] Comment on above: Performed By: #### 2 91181 ####[facility],[address] [place] [address] Urinalysis dipstick W Reflex Microscopic panel (U) NOT INDICATED Normal [facility] Comment on above: Performed By: #### 2 08598 ####[facility],[address] [place] [address] Urobilinog NORM Normal NORMAL: NORMAL [facility] Comment on above: Performed By: #### 2 61427 ####[facility],[address] [place], [place] [address] Gastroenterology Visit Repor ton 05-10-2024 Gastroenterology Visit Report Normal [facility] URINE CULTURE [CCL]on 2023 Bacteria identified Cx Nom (U) Normal [facility] Comment on above: Performed By: #### 2 47515 ####[facility],[address] [place] [address] URINALYSIS WITH MICROSCOPYon 05-07-2024 Amorphous NONE Normal [facility] Comment on above: Performed By: #### 2 32131 ####[facility],[address] [place] [address] 23092 Bacteria 4+ Normal [facility] Comment on above: Performed By: #### 2 91145 ####[facility],[address] [place], [place] [address] Bilirubin Ql (U) Negative Normal NORMAL: NEGATIVE [facility] Comment on above: Performed By: #### 2 06661 ####[facility],[address] [place] [address] Casts NONE Normal [facility] Comment on above: Performed By: #### 2 18340 ####[facility],[address] [place] [address] Clarity (U) sl.cloudy Normal NORMAL: CLEAR [facility] Comment on above: Performed By: #### 2 68401 ####[facility],[address] [place], [place] [id number] Color (U) yellow Normal NORMAL: YELLOW [facility] Comment on above: Performed By: #### 2 92521 ####[facility],[address] [place] [address] 15195 Crystals LM Nom (Urine sed) NONE Normal [facility] Comment on above: Performed By: #### 2 39633 ####[facility],[address] [place] [address] 57481 Epi Cells MODERATE Normal [facility] Comment on above: Performed By: #### 2 01202 ####[facility],[address] [place] [address] 41672 Glucose Ql (U) NORM Normal NORMAL: NORMAL [facility] Comment on above: Performed By: #### 2 17500 ####[facility],[address] [place] [address] 82928 Hemoglobin Ql (U) 10 Abnormal NORMAL: NEGATIVE [facility] Comment on above: Performed By: #### 2 14527 ####[facility],[address] [place] [address] 23160 Ketone Negative Normal NORMAL: NEGATIVE [facility] Comment on above: Performed By: #### 2 12754 ####[facility],[address] [place] [address] 11156 Leukocytes Negative Normal NORMAL: NEGATIVE [facility] Comment on above: Result Comment: URIN E MICROSCOPIC Performed By: #### 2 24703 ####[facility],[address] [place], [place] [id number] Mucous NONE Normal [facility] Comment on above: Performed By: #### 2 25756 ####[facility],[address] [place], [place] [address] Nitrite Ql (U) Negative Normal NORMAL: NEGATIVE [facility] Comment on above: Performed By: #### 2 57324 ####[facility],[address] [place], [place] [address] pH (U) 6 [pH] Normal NORMAL: 5.0-8.0 [facility] Comment on above: Performed By: #### 2 08532 ####[facility],[address] [place] [address] 27862 Protein Ql (U) 15 Abnormal NORMAL: NEGATIVE [facility] Comment on above: Performed By: #### 2 74174 ####[facility],[address] [place] [address] 29497 Rbc 0-5 Normal 0-3 / hpf [facility] Comment on above: Performed By: #### 2 39864 ####[facility],[address] [place] [address] 76653 Sp [place] 1.020 Normal NORMAL: 1.010-1.030 [facility] Comment on above: Performed By: #### 2 69249 ####[facility],[address] [place] [address] Specimen Type UNSPECIFIED Normal [facility] Comment on above: Performed By: #### 2 44705 ####[facility],[address] [place] [address] URINALYSIS WITH MICROSCOPY Normal [facility] Comment on above: Result Comment: URIN ALYSIS Performed By: #### 2 41687 ####[facility],[address] [place] [address] Urobilinog NORM Normal NORMAL: NORMAL [facility] Comment on above: Performed By: #### 2 57049 ####[facility],[address] [place] [address] Wbc NONE Normal 0-5 / hpf [facility] Comment on above: Performed By: #### 2 45941 ####[facility],[address] [place] [address] Yeast NONE Normal [facility] Comment on above: Performed By: #### 2 84331 ####[facility],[address] [place] [address] CBC + DIFFon 05-01-2024 Baso # 0.01 x10EE3/UL Normal 0.00 - 0.10 [facility] Comment on above: Performed By: #### 2 56539 ####[facility],[address] [place] [address] Basophils/100 WBC (Bld) 0.2 % Normal 0.0 - 2.0 [facility] Comment on above: Performed By: #### 2 75889 ####[facility],[address] [place] [address] CBC + DIFF Normal [facility] Comment on above: Result Comment: CBC- COMPLETE BLOOD COUNT Performed By: #### 2 58402 ####[facility],[address] [place], [place] [address] EO # 0.23 x10EE3/UL Normal 0.00 - 0.50 [facility] Comment on above: Performed By: #### 2 58217 ####[facility],[address] [place] [address] 14612 Eosinophils/100 WBC (Bld) 2.9 % Normal 0.0 - 7.0 [facility] Comment on above: Performed By: #### 2 73132 ####[facility],[address] [place] [address] Erythrocyte distribution width (RBC) [Ratio] 12.6 % Normal 12.0 - 15.6 [facility] Comment on above: Performed By: #### 2 74761 ####[facility],[address] [place] [address] Hematocrit (Bld) [Volume fraction] 42.4 % Normal 34.0 - 46.0 [facility] [facility] Comment on above: Performed By: #### 2 44049 ####[facility],[address] [place] [address] Hemoglobin (Bld) [Mass/Vol] 14.8 g/dL Normal 12.0 - 16.0 [facility] Comment on above: Performed By: #### 2 44553 ####[facility],[address] [place] [address] 64903 Lymph # 3.52 x10EE3/UL High 0.80 - 2.80 [facility] Comment on above: Performed By: #### 2 62543 ####[facility],[address] [place] [address] 87372 Lymphocytes/100 WBC (Bld) 43.3 % Normal 20.0 - 45.0 [facility] Comment on above: Performed By: #### 2 23748 ####[facility],[address] [place], [place] [address] MANUAL DIFF N/A Normal [facility] Comment on above: Performed By: #### 2 17124 ####[facility],[address] [place] [address] MCH (RBC) [Entitic mass] 31 pg Normal 27 - 33 [facility] Comment on above: Performed By: #### 2 81231 ####[facility],[address] [place] [address] MCHC 35 X10 3 Normal 32 - 36 [facility] Comment on above: Performed By: #### 2 11495 ####[facility],[address] [place] [address] MCV (RBC) [Entitic vol] 88 fL Normal 80 - 99 [facility] Comment on above: Performed By: #### 2 14125 ####[facility],[address] [place] [address] [place] # 0.58 x10EE3/UL Normal 0.20 - 1.00 [facility] Comment on above: Performed By: #### 2 08994 ####[facility],[address] [place] [address] MONOS % 7.1 % Normal 0.0 - 10.0 [facility] Comment on above: Performed By: #### 2 19951 ####[facility],[address] [place] [address] Morphology Adrian (Bld) [Interp] N/A Normal [facility] Comment on above: Performed By: #### 2 62614 ####[facility],[address] [place] [address] Neut # 3.79 x10EE3/UL Normal 1.50 - 7.10 [facility] Comment on above: Performed By: #### 2 71217 ####[facility],[address] [place] [address] Neutrophils/100 WBC (Bld) 46.6 % Normal 46.0 - 76.0 [facility] Comment on above: Performed By: #### 2 17861 ####[facility],[address] [place] [address] 98207 PLATELET 259 x10EE3/UL Normal 150 - 450 [facility] Comment on above: Performed By: #### 2 42037 ####[facility],[address] [place] [address] 04572 Platelet mean volume (Bld) [Entitic vol] 8.1 fL Normal 6.6 - 10.5 [facility] Comment on above: Result Comment: AUTO MATED DIFFERENTIAL Performed By: #### 2 56297 ####[facility],[address] [place] [address] 08703 RBC 4.80 x 10EE6/UL Normal 4.10 - 5.30 [facility] Comment on above: Performed By: #### 2 29308 ####[facility],[address] [place] [address] 40219 WBC 8.1 x 10EE3/UL Normal 4.5 - 10.8 [facility] Comment on above: Performed By: #### 2 82050 ####[facility],[address] [place] [address] 95790 CMP with eGFRon 05-01-2024 AGE 43 years Normal [facility] Comment on above: Performed By: #### 2 01341 ####[facility],[address] [place] [address] 99866 Albumin [Mass/Vol] 4.1 g/dL Normal 3.4 - 5.0 [facility] Comment on above: Performed By: #### 2 14294 ####[facility],[address] [place] [address] 10524 Albumin/Globulin [Mass ratio] 1.0 {ratio} Normal 0.9 - 1.6 [facility] Comment on above: Performed By: #### 2 70181 ####[facility],[address] [place] [address] 37488 ALK PHOS 125 U/L High 46 - 116 [facility] Comment on above: Performed By: #### 2 84442 ####[facility],[address] [place] [address] 91379 ALT [Catalytic activity/Vol] 21 U/L Normal 16 - 63 [facility] Comment on above: Performed By: #### 2 04890 ####[facility],[address] [place] [address] 30905 Anion gap [Moles/Vol] 11 mmol/L Normal 10 - 20 [facility] Comment on above: Performed By: #### 2 70414 ####[facility],[address] [place] [address] 95106 AST [Catalytic activity/Vol] 13 U/L Normal 13 - 39 [facility] Comment on above: Performed By: #### 2 54985 ####[facility],[address] [place] [address] 38353 B/C RATIO 13 ratio Normal 0 - 30 [facility] Comment on above: Performed By: #### 2 44574 ####[facility],[address] [place] [address] 78263 Bilirubin [Mass/Vol] 0.6 mg/dL Normal 0.2 - 1.0 [facility] Comment on above: Performed By: #### 2 54581 ####[facility],[address] [place] [address] 03381 Calcium [Mass/Vol] 9.4 mg/dL Normal 8.5 - 10.1 [facility] Comment on above: Performed By: #### 2 69309 ####[facility],[address] [place] [address] 56907 Chloride [Moles/Vol] 101 mmol/L Normal 98 - 107 [facility] Comment on above: Performed By: #### 2 02638 ####[facility],[address] [place] [address] 81401 CMP with eGFR Normal [facility] Comment on above: Result Comment: COMP REHENSIVE METABOLIC PANEL Performed By: #### 2 24409 ####[facility],[address] [place] [address] 35466 CO2 [Moles/Vol] 29.5 mmol/L Normal 21.0 - 32.0 [facility] Comment on above: Performed By: #### 2 26849 ####[facility],[address] [place] [address] 99149 Creatinine [Mass/Vol] 1.11 mg/dL High 0.55 - 1.02 [facility] Comment on above: Performed By: #### 2 15676 ####[facility],[address] [place] [address] 72757 eGFR 53 ML/MINUTE Low 60 - 999 [facility] Comment on above: Performed By: #### 2 32970 ####[address] [address] GFR/1.73 sq M.predicted among non-blacks MDRD (S/P/Bld) [Vol rate/Area] mL/min/{1.73_m2} Normal 60 - 999 [facility] Comment on above: Result Comment: ACCO RDING TO THE NATIONAL KIDNEY DISEASE EDUCATION PROGRAM(NKDE), A NORMAL eGFRIS A VALUE GREATER THAN OR EQUAL TO 60 ML/MIN/1.73 SQ METERS.CHRONIC KIDNEY DISEASE: <60mL/MIN/1.73 SQ METERSKIDNEY FAILURE: <15mL/MIN/1.73 SQ METERSTHIS TEST SHOULD ONLY BE USED FOR PATIENTS 18 YEARS OF AGE AND OLDER. Performed By: #### 2 74915 ####[facility],[address] [place] [address] 15614 Globulin (S) [Mass/Vol] 4.0 g/dL High 1.5 - 3.8 [facility] Comment on above: Performed By: #### 2 81682 ####[facility],[address] [place] [address] 23183 Glucose [Mass/Vol] 107 mg/dL High 74 - 106 [facility] Comment on above: Performed By: #### 2 35302 ####[facility],[address] [place] [address] 99995 Potassium [Moles/Vol] 3.8 mmol/L Normal 3.5 - 5.1 [facility] Comment on above: Performed By: #### 2 06855 ####[facility],[address] [place] [address] Protein [Mass/Vol] 8.1 g/dL Normal 6.4 - 8.2 [facility] Comment on above: Performed By: #### 2 17478 ####[place] [address] Sodium [Moles/Vol] 138 mmol/L Normal 136 - 145 [facility] Comment on above: Performed By: #### 2 15689 ####[place] [address] Urea nitrogen [Mass/Vol] 14 mg/dL Normal 7 - 18 [facility] Comment on above: Performed By: #### 2 73668 ####[place] [address] LIPASEon 05-01-2024 Lipase [Catalytic activity/Vol] 37.0 U/L Normal 15.0 - 78.0 [facility] Comment on above: Result Comment: *PLE ASE NOTE THAT RANGES FOR LIPASE HAVE CHANGED OF 09/11/23 DUE TO AN ASSAYUPDATE BY THE ELECTRONICS REPAIR TECHNICIAN.THE NEW ASSAY RANGE IS 6-250 U/L, WITH A REFERENCERANGE OF 16-77 U/L. Performed By: #### 2 12217 ####[address] [address] URINALYSISon 05-01-2024 Amorphous NONE Normal [facility] Comment on above: Performed By: #### 2 70826 ####[place] [address] Bacteria NONE Normal [facility] Comment on above: Performed By: #### 2 89277 ####[facility],[address] [place] [address] 31130 Bilirubin Ql (U) Negative Normal NORMAL: NEGATIVE [facility] Comment on above: Performed By: #### 2 49162 ####[facility],[address] [place] [address] 09670 Casts NONE Normal [facility] Comment on above: Performed By: #### 2 12318 ####[facility],[address] [place] [address] 07210 Clarity (U) SL. CLOUDY Abnormal NORMAL: CLEAR [facility] Comment on above: Performed By: #### 2 85912 ####[facility],[address] [place] [address] 43874 Color (U) saravanan Normal NORMAL: YELLOW [facility] Comment on above: Performed By: #### 2 39843 ####[facility],[address] [place] [address] 09105 Crystals LM Nom (Urine sed) NONE Normal [facility] Comment on above: Performed By: #### 2 00572 ####[facility],[address] [place] [address] 88881 Epi Cells MODERATE Normal [facility] Comment on above: Performed By: #### 2 66200 ####[facility],[address] [place] [address] 62255 Glucose Ql (U) NORM Normal NORMAL: NORMAL [facility] Comment on above: Performed By: #### 2 99548 ####[facility],[address] [place] [address] 34026 Hemoglobin Ql (U) 10 Abnormal NORMAL: NEGATIVE [facility] Comment on above: Performed By: #### 2 65832 ####[facility],[address] [place] [address] 37065 Ketone Negative Normal NORMAL: NEGATIVE [facility] Comment on above: Performed By: #### 2 95045 ####[facility],[address] [place] [address] Leukocytes 25 Abnormal NORMAL: NEGATIVE [facility] Comment on above: Performed By: #### 2 94265 ####[facility],[address] [place] [address] Mucous NONE Normal [facility] Comment on above: Performed By: #### 2 35881 ####[facility],[address] [place] [address] Nitrite Ql (U) Negative Normal NORMAL: NEGATIVE [facility] Comment on above: Performed By: #### 2 81843 ####[facility],[address] [place] [address] pH (U) 6 [pH] Normal NORMAL: 5.0-8.0 [facility] Comment on above: Performed By: #### 2 80522 ####[facility],[address] [place] [address] Protein Ql (U) 30 Abnormal NORMAL: NEGATIVE [facility] Comment on above: Performed By: #### 2 22310 ####[facility],[address] [place] [address] Rbc NONE Normal 0-3/hpf [facility] Comment on above: Performed By: #### 2 56758 ####[facility],[address] [place] [address] Sp [place] 1.025 Normal NORMAL: 1.010-1.030 [facility] Comment on above: Performed By: #### 2 44647 ####[facility],[address] [place] [address] Specimen Type UNSPECIFIED Normal [facility] Comment on above: Performed By: #### 2 82389 ####[facility],[address] [place] [address] Urinalysis dipstick W Reflex Microscopic panel (U) SEE BELOW Normal [facility] Comment on above: Result Comment: MICR OSCOPIC Performed By: #### 2 65117 ####[facility],[address] [place] [address],[facility] [address] Urobilinog NORM Normal NORMAL: NORMAL [facility] Comment on above: Performed By: #### 2 74860 ####[facility],[address] [place] [address],[facility] [address] Wbc 1-5 Normal 0-5/hpf [facility] Comment on above: Performed By: #### 2 70559 ####[facility],[address] [place] [address] 35779 Yeast NONE Normal [facility] Comment on above: Performed By: #### 2 49044 ####[facility],[address] [place] [address] 93016 12 Lead EKGon 04-01-2024 12 Lead EKG Normal [facility] Basic Metabolic Profile (BMP )on 04-01-2024 BUN/CRE 14.4 RATIO Normal 10-20 [facility] Comment on above: Order Comment: 1Y Performed By: #### L 500.2500, L100.0100, L501.5425 ####[facility] [address] [place], [address] [place],Total 9.6 mg/dL Normal 8.5-10.1 [facility] Comment on above: Order Comment: 1Y Performed By: #### L 500.2500, L100.0100, L501.5425 ####[facility] [address] [place], [address] Chloride [Moles/Vol] 105 mmol/L Normal 98-107 [facility] Comment on above: Order Comment: 1Y Performed By: #### L 500.2500, L100.0100, L501.5425 ####[facility] [address] [place], [address] CO2 [Moles/Vol] 26.0 mmol/L Normal 21.0-32.0 [facility] Comment on above: Order Comment: 1Y Performed By: #### L 500.2500, L100.0100, L501.5425 ####[facility] [address] [place], [address] Creatinine [Mass/Vol] 1.11 mg/dL High 0.55-1.02 [facility] Comment on above: Order Comment: 1Y Result Comment: The validity of the calculated GFR GFRAA in patients over70 years has not been determined. Clinical correlation isessential. Performed By: #### L 500.2500, L100.0100, L501.5425 ####[facility] [address] [place], [address] ECRCL 66.69 ml/min Normal [facility] Comment on above: Order Comment: 1Y Performed By: #### L 500.2500, L100.0100, L501.5425 ####[facility] [address] [place], [address] EST GFR - AA 69 mL/min Normal >60 [facility] Comment on above: Order Comment: 1Y Result Comment: Afri can [place] GFR Calc Performed By: #### L 500.2500, L100.0100, L501.5425 ####[facility] [address] [place], [address] GAP 7 Normal 5-15 [facility] Comment on above: Order Comment: 1Y Performed By: #### L 500.2500, L100.0100, L501.5425 ####[facility] [address] [place], [address] GFR/1.73 sq M.predicted among non-blacks MDRD (S/P/Bld) [Vol rate/Area] 57 mL/min/{1.73_m2} Low >60 [facility] Comment on above: Order Comment: 1Y Result Comment: Non- GFR Calc Performed By: #### L 500.2500, L100.0100, L501.5425 ####[facility] [address] [place], [address] Glucose [Mass/Vol] 109 mg/dL High 74-106 [facility] Comment on above: Order Comment: 1Y Result Comment: Fast ing Glucose result from 100 to 125 mg/dLsuggests IMPAIRED HOMEOSTASIS per A.D.A. criteria. Performed By: #### L 500.2500, L100.0100, L501.5425 ####[facility] [address] [place], [address] Potassium [Moles/Vol] 3.9 mmol/L Normal 3.5-5.1 [facility] Comment on above: Order Comment: 1Y Performed By: #### L 500.2500, L100.0100, L501.5425 ####[facility] [address] [place], [address] Sodium [Moles/Vol] 138 mmol/L Normal 136-145 [facility] Comment on above: Order Comment: 1Y Performed By: #### L 500.2500, L100.0100, L501.5425 ####[facility] [address] [place], [address] Urea nitrogen [Mass/Vol] 16 mg/dL Normal 7-18 [facility] Comment on above: Order Comment: 1Y Performed By: #### L 500.2500, L100.0100, L501.5425 ####[facility] [address] [place], [address] CBC W/Diff, Automatedon 07- Absolute Lymph 1.82 X10 3/uL Normal 0.83-4.51 [facility] Comment on above: Performed By: #### L 500.2500, L100.0100, L501.5425 ####[facility] [address] [place], [address] Absolute Neut 5.1 X10 3/uL Normal 2.0-7.7 [facility] Comment on above: Performed By: #### L 500.2500, L100.0100, L501.5425 ####[facility] [address] [place], [address] Basophils/100 WBC (Bld) 0.7 % Normal 0-1 [facility] Comment on above: Performed By: #### L 500.2500, L100.0100, L501.5425 ####[facility] [address] [place], [address] Eosinophils/100 WBC (Bld) 0.9 % Normal 0-5 [facility] Comment on above: Performed By: #### L 500.2500, L100.0100, L501.5425 ####[facility] [address] [place], [address] Erythrocyte distribution width (RBC) [Ratio] 12.5 % Normal 11.6-14.6 [facility] Comment on above: Performed By: #### L 500.2500, L100.0100, L501.5425 ####[facility] [address] [place], [address] Hematocrit (Bld) [Volume fraction] 41.1 % Normal 37-47 [facility] Comment on above: Performed By: #### L 500.2500, L100.0100, L501.5425 ####[facility] [address] [place], [address] Hemoglobin (Bld) [Mass/Vol] 13.6 g/dL Normal 12.0-15.0 [facility] Comment on above: Performed By: #### L 500.2500, L100.0100, L501.5425 ####[facility] [address] [place], [address] IG% 0.700 Normal 0.0-0.9 [facility] Comment on above: Result Comment: IG% - Immature Granulocytes (promyelocytes, myelocytes andmetamyelocytes) > 1% indicates that a LEFT SHIFT is Present. Performed By: #### L 500.2500, L100.0100, L501.5425 ####[facility] [address] [place], [address] Lymphocytes/100 WBC (Bld) 24.2 % Normal 19-41 [facility] Comment on above: Performed By: #### L 500.2500, L100.0100, L501.5425 ####[facility] [address] [place], [address] MCH (RBC) [Entitic mass] 29.6 pg Normal 27.0-32.0 [facility] Comment on above: Performed By: #### L 500.2500, L100.0100, L501.5425 ####[facility] [address] [place], [address] MCHC (RBC) [Mass/Vol] 33.1 g/dL Normal 32-36 [facility] Comment on above: Performed By: #### L 500.2500, L100.0100, L501.5425 ####[facility] [address] [place], [address] MCV (RBC) [Entitic vol] 89.5 fL Normal 81-99 [facility] Comment on above: Performed By: #### L 500.2500, L100.0100, L501.5425 ####[facility] [address] [place], [address] Monocytes/100 WBC (Bld) 5.2 % Normal 0-10 [facility] Comment on above: Performed By: #### L 500.2500, L100.0100, L501.5425 ####[facility] [address] [place], [address] Neutrophils/100 WBC (Bld) 68.3 % Normal 47-70 [facility] Comment on above: Performed By: #### L 500.2500, L100.0100, L501.5425 ####[facility] [address] [place], [address] Nucleated RBC (Bld) [#/Vol] 0 10*3/uL Normal 0-5 [facility] Comment on above: Performed By: #### L 500.2500, L100.0100, L501.5425 ####[facility] [address] [place], [address] Platelet mean volume (Bld) [Entitic vol] 10.6 fL Normal 6.2-12.0 [facility] Comment on above: Performed By: #### L 500.2500, L100.0100, L501.5425 ####[facility] [address] [place], [address] Platelets (Bld) [#/Vol] 217 10*3/uL Normal 150-450 [facility] Comment on above: Performed By: #### L 500.2500, L100.0100, L501.5425 ####[facility] [address] [place], [address] RBC (Bld) [#/Vol] 4.59 10*6/uL Normal 4.2-5.4 [facility] Comment on above: Performed By: #### L 500.2500, L100.0100, L501.5425 ####[facility] [address] [place], [address] RDW SD 41.2 fl Normal 35.1-43.9 [facility] Comment on above: Performed By: #### L 500.2500, L100.0100, L501.5425 ####[facility] [address] [place], [address] WBC (Bld) [#/Vol] 7.5 10*3/uL Normal 4.4-11.0 [facility] Comment on above: Performed By: #### L 500.2500, L100.0100, L501.5425 ####[facility] [address] [place], [place], [address] Chest 1 View (Portable)on Chest 1 View (Portable) Normal [facility] Emergency Department Summary on 04-01-2024 Emergency Department Summary Normal [facility] L501.5425on 04-01-2024 TROPONIN-I HS < 3 Low 3.0-54.0 [facility] Comment on above: Order Comment: 1Y Result Comment: Plea se Note: New Test Units and Gender Specific Reference Ranges. For more information see Policy Stat Procedure [place] High Sensitivity Troponin (TNIH) and attachments. Performed By: #### L 500.2500, L100.0100, L501.5425 ####[facility] [address] [place], [place], [address] CBC + DIFFon 03-17-2024 Baso # 0.02 x10EE3/UL Normal 0.00 - 0.10 [facility] Comment on above: Performed By: #### 2 23156 ####[facility],[address] [place] [address] Basophils/100 WBC (Bld) 0.3 % Normal 0.0 - 2.0 [facility] Comment on above: Performed By: #### 2 34015 ####[facility],[address] [place] [address] CBC + DIFF Normal [facility] Comment on above: Result Comment: CBC- COMPLETE BLOOD COUNT Performed By: #### 2 68662 ####[facility],[address] [place] [address] 54494 EO # 0.29 x10EE3/UL Normal 0.00 - 0.50 [facility] Comment on above: Performed By: #### 2 46172 ####[facility],[address] [place], [place] [address] Eosinophils/100 WBC (Bld) 3.8 % Normal 0.0 - 7.0 [facility] Comment on above: Performed By: #### 2 69367 ####[facility],[address] [place] [address] Erythrocyte distribution width (RBC) [Ratio] 13.4 % Normal 12.0 - 15.6 [facility] Comment on above: Performed By: #### 2 05885 ####[facility],[address] [place] [address] Hematocrit (Bld) [Volume fraction] 41.2 % Normal 34.0 - 46.0 [facility] Comment on above: Performed By: #### 2 73075 ####[facility],[address] [place] [address] Hemoglobin (Bld) [Mass/Vol] 13.9 g/dL Normal 12.0 - 16.0 [facility] Comment on above: Performed By: #### 2 77022 ####[facility],[address] [place] [address] Lymph # 2.95 x10EE3/UL High 0.80 - 2.80 [facility] Comment on above: Performed By: #### 2 05476 ####[facility],[address] [place], [place] [address] Lymphocytes/100 WBC (Bld) 38.5 % Normal 20.0 - 45.0 [facility] Comment on above: Performed By: #### 2 24495 ####[facility],[address] [place], [place] [address] MANUAL DIFF N/A Normal [facility] Comment on above: Performed By: #### 2 79671 ####[facility],[address] [place], [place] [address] MCH (RBC) [Entitic mass] 30 pg Normal 27 - 33 [facility] Comment on above: Performed By: #### 2 40947 ####[facility],[address] [place] [address] 36082 MCHC 34 X10 3 Normal 32 - 36 [facility] Comment on above: Performed By: #### 2 81065 ####[facility],[address] [place] [place] [address] 23893 MCV (RBC) [Entitic vol] 90 fL Normal 80 - 99 [facility] Comment on above: Performed By: #### 2 29775 ####[facility],[address] [place] [address] [place] # 0.52 x10EE3/UL Normal 0.20 - 1.00 [facility] Comment on above: Performed By: #### 2 05997 ####[facility],[address] [place], [place] [id number] MONOS % 6.9 % Normal 0.0 - 10.0 [facility] Comment on above: Performed By: #### 2 91943 ####[facility],[address] [place] [address] 69133 Morphology Adrian (Bld) [Interp] N/A Normal [facility] Comment on above: Performed By: #### 2 04204 ####[facility],[address] [place] [address] 76418 Neut # 3.87 x10EE3/UL Normal 1.50 - 7.10 [facility] Comment on above: Performed By: #### 2 78372 ####[facility],[address] [place], [place] [address] Neutrophils/100 WBC (Bld) 50.5 % Normal 46.0 - 76.0 [facility] Comment on above: Performed By: #### 2 69767 ####[facility],[address] [place], [place] [id number] PLATELET 239 x10EE3/UL Normal 150 - 450 [facility] Comment on above: Performed By: #### 2 87713 ####[facility],[address] [place] [address] 84482 Platelet mean volume (Bld) [Entitic vol] 8.4 fL Normal 6.6 - 10.5 [facility] Comment on above: Result Comment: AUTO MATED DIFFERENTIAL Performed By: #### 2 28876 ####[facility],[address] [place] [address] 93416 RBC 4.60 x 10EE6/UL Normal 4.10 - 5.30 [facility] Comment on above: Performed By: #### 2 30910 ####[facility],[address] [place] [address] 68232 WBC 7.7 x 10EE3/UL Normal 4.5 - 10.8 [facility] Comment on above: Performed By: #### 2 13903 ####[facility],[address] [place] [address] 71944 CMP with eGFRon 03-17-2024 AGE 43 years Normal [facility] Comment on above: Performed By: #### 2 52051 ####[facility],[address] [place] [address] 19346 Albumin [Mass/Vol] 3.9 g/dL Normal 3.4 - 5.0 [facility] Comment on above: Performed By: #### 2 27510 ####[facility],[address] [place] [address] 39301 Albumin/Globulin [Mass ratio] 1.1 {ratio} Normal 0.9 - 1.6 [facility] Comment on above: Performed By: #### 2 66779 ####[facility],[address] [place] [address] 45005 ALK PHOS 117 U/L High 46 - 116 [facility] Comment on above: Performed By: #### 2 77445 ####[facility],[address] [place] [address] 44087 ALT [Catalytic activity/Vol] 32 U/L Normal 16 - 63 [facility] Comment on above: Performed By: #### 2 97611 ####[facility],[address] [place] [address] 01591 Anion gap [Moles/Vol] 10 mmol/L Normal 10 - 20 [facility] Comment on above: Performed By: #### 2 59639 ####[facility],[address] [place] [address] 95987 AST [Catalytic activity/Vol] 21 U/L Normal 13 - 39 [facility] Comment on above: Performed By: #### 2 71097 ####[facility],[address] [place] [address] 49231 B/C RATIO 11 ratio Normal 0 - 30 [facility] Comment on above: Performed By: #### 2 12454 ####[facility],[address] [place] [address] 39155 Bilirubin [Mass/Vol] 0.7 mg/dL Normal 0.2 - 1.0 [facility] Comment on above: Performed By: #### 2 67660 ####[facility],[address] [place] [address] 67245 Calcium [Mass/Vol] 9.0 mg/dL Normal 8.5 - 10.1 [facility] Comment on above: Performed By: #### 2 99484 ####[facility],[address] [place] [address] 15370 Chloride [Moles/Vol] 101 mmol/L Normal 98 - 107 [facility] Comment on above: Performed By: #### 2 12824 ####[facility],[address] [place] [address] 03734 CMP with eGFR Normal [facility] Comment on above: Result Comment: COMP REHENSIVE METABOLIC PANEL Performed By: #### 2 48233 ####[facility],[address] [place] [address] 55352 CO2 [Moles/Vol] 27.5 mmol/L Normal 21.0 - 32.0 [facility] Comment on above: Performed By: #### 2 24078 ####[facility],[address] [place] [address] 77780 Creatinine [Mass/Vol] 1.09 mg/dL High 0.55 - 1.02 [facility] Comment on above: Performed By: #### 2 22439 ####[facility],[address] [place] [address] 19346 eGFR 55 ML/MINUTE Low 60 - 999 [facility] Comment on above: Performed By: #### 2 16467 ####[facility],[address] [place] [address] 26524 GFR/1.73 sq M.predicted among non-blacks MDRD (S/P/Bld) [Vol rate/Area] mL/min/{1.73_m2} Normal 60 - 999 [facility] Comment on above: Result Comment: ACCO RDING TO THE NATIONAL KIDNEY DISEASE EDUCATION PROGRAM(NKDE), A NORMAL eGFRIS A VALUE GREATER THAN OR EQUAL TO 60 ML/MIN/1.73 SQ METERS.CHRONIC KIDNEY DISEASE: <60mL/MIN/1.73 SQ METERSKIDNEY FAILURE: <15mL/MIN/1.73 SQ METERSTHIS TEST SHOULD ONLY BE USED FOR PATIENTS 18 YEARS OF AGE AND OLDER. Performed By: #### 2 39732 ####[facility],[address] [place] [address] 01624 Globulin (S) [Mass/Vol] 3.6 g/dL Normal 1.5 - 3.8 [facility] Comment on above: Performed By: #### 2 09037 ####[facility],[address] [place] [address] 32625 Glucose [Mass/Vol] 102 mg/dL Normal 74 - 106 [facility] Comment on above: Performed By: #### 2 11693 ####[facility],[address] [place] [address] 20418 Potassium [Moles/Vol] 3.9 mmol/L Normal 3.5 - 5.1 [facility] Comment on above: Performed By: #### 2 38320 ####[facility],[address] [place] [address] Protein [Mass/Vol] 7.5 g/dL Normal 6.4 - 8.2 [facility] Comment on above: Performed By: #### 2 96095 ####[facility],[address] [place] [address] Sodium [Moles/Vol] 135 mmol/L Low 136 - 145 [facility] Comment on above: Performed By: #### 2 30049 ####[place] [address] Urea nitrogen [Mass/Vol] 12 mg/dL Normal 7 - 18 [facility] Comment on above: Performed By: #### 2 27321 ####[place] [address] CT BRAIN W/O CONTRASTon CT BRAIN W/O CONTRAST Normal [facility] LIPASEon 03-17-2024 Lipase [Catalytic activity/Vol] 34.0 U/L Normal 15.0 - 78.0 [facility] Comment on above: Result Comment: *PLE ASE NOTE THAT RANGES FOR LIPASE HAVE CHANGED OF 09/11/23 DUE TO AN ASSAYUPDATE BY THE ELECTRONICS REPAIR TECHNICIAN.THE NEW ASSAY RANGE IS 6-250 U/L, WITH A REFERENCERANGE OF 16-77 U/L. Performed By: #### 2 02929 ####[facility],[address] [place], [place] [address] URINALYSISon 03-17-2024 Bilirubin Ql (U) Negative Normal NORMAL: NEGATIVE [facility] Comment on above: Performed By: #### 2 19518 ####[address] [address] Clarity (U) sl.cloudy Normal NORMAL: CLEAR [facility] Comment on above: Performed By: #### 2 86883 ####[facility] [place] [address] 02510 Color (U) p.yel Normal NORMAL: YELLOW [facility] Comment on above: Performed By: #### 2 98966 ####[facility],[address] [place] [address] 97368 Glucose Ql (U) NORM Normal NORMAL: NORMAL [facility] Comment on above: Performed By: #### 2 27294 ####[facility],[address] [place] [address] 99021 Hemoglobin Ql (U) Negative Normal NORMAL: NEGATIVE [facility] Comment on above: Performed By: #### 2 43001 ####[facility],[address] [place] [address] 98747 Ketone Negative Normal NORMAL: NEGATIVE [facility] Comment on above: Performed By: #### 2 89600 ####[facility],[address] [place] [address] 48727 Leukocytes Negative Normal NORMAL: NEGATIVE [facility] Comment on above: Performed By: #### 2 96646 ####[facility],[address] [place] [address] 74119 Nitrite Ql (U) Negative Normal NORMAL: NEGATIVE [facility] Comment on above: Performed By: #### 2 05883 ####[facility],[address] [place] [address] 44262 pH (U) 6 [pH] Normal NORMAL: 5.0-8.0 [facility] Comment on above: Performed By: #### 2 52740 ####[facility],[address] [place] [address] 71526 Protein Ql (U) Negative Normal NORMAL: NEGATIVE [facility] Comment on above: Performed By: #### 2 00009 ####[facility],[address] [place] [address] 65446 Sp [place] 1.010 Normal NORMAL: 1.010-1.030 [facility] Comment on above: Performed By: #### 2 63456 ####[facility],[address] [place] [address] Specimen Type UNSPECIFIED Normal [facility] Comment on above: Performed By: #### 2 68865 ####[facility],[address] [place], [place] [address] Urinalysis dipstick W Reflex Microscopic panel (U) NOT INDICATED Normal [facility] Comment on above: Performed By: #### 2 41991 ####[facility],[address] [place] [address] Urobilinog NORM Normal NORMAL: NORMAL [facility] Comment on above: Performed By: #### 2 39713 ####[facility],[address] [place] [address] CBC + DIFFon 03-12-2024 Baso # 0.01 x10EE3/UL Normal 0.00 - 0.10 [facility] Comment on above: Performed By: #### 2 52419 ####[facility],[address] [place] [address] 43497 Basophils/100 WBC (Bld) 0.2 % Normal 0.0 - 2.0 [facility] Comment on above: Performed By: #### 2 87292 ####[facility],[address] [place] [address] CBC + DIFF Normal [facility] Comment on above: Result Comment: CBC- COMPLETE BLOOD COUNT Performed By: #### 2 11227 ####[facility],[address] [place] [address] 03332 EO # 0.28 x10EE3/UL Normal 0.00 - 0.50 [facility] Comment on above: Performed By: #### 2 59042 ####[facility],[address] [place] [address] 99938 Eosinophils/100 WBC (Bld) 3.8 % Normal 0.0 - 7.0 [facility] Comment on above: Performed By: #### 2 50086 ####[facility],[address] [place] [address] 03384 Erythrocyte distribution width (RBC) [Ratio] 13.4 % Normal 12.0 - 15.6 [facility] Comment on above: Performed By: #### 2 65146 ####[facility],[address] [place], [place] [address] Hematocrit (Bld) [Volume fraction] 36.3 % Normal 34.0 - 46.0 [facility] Comment on above: Performed By: #### 2 39588 ####[facility],[address] [place] [address] Hemoglobin (Bld) [Mass/Vol] 12.2 g/dL Normal 12.0 - 16.0 [facility] Comment on above: Performed By: #### 2 76199 ####[place] [address] Lymph # 2.90 x10EE3/UL High 0.80 - 2.80 [facility] Comment on above: Performed By: #### 2 86370 ####[facility],[address] [place], [place] [address] Lymphocytes/100 WBC (Bld) 39.0 % Normal 20.0 - 45.0 [facility] Comment on above: Performed By: #### 2 62313 ####[facility],[address] [place] [address] 25345 MANUAL DIFF N/A Normal [facility] Comment on above: Performed By: #### 2 60101 ####[address] [address] MCH (RBC) [Entitic mass] 30 pg Normal 27 - 33 [facility] Comment on above: Performed By: #### 2 16202 ####[facility],[address] [place] [address] 05446 MCHC 34 X10 3 Normal 32 - 36 [facility] Comment on above: Performed By: #### 2 14786 ####[facility],[address] [place] [address] 02579 MCV (RBC) [Entitic vol] 89 fL Normal 80 - 99 [facility] Comment on above: Performed By: #### 2 91238 ####[facility],[address] [place] [address] 68497 [place] # 0.43 x10EE3/UL Normal 0.20 - 1.00 [facility] Comment on above: Performed By: #### 2 30648 ####[facility],[address] [place] [address] 68724 MONOS % 5.8 % Normal 0.0 - 10.0 [facility] Comment on above: Performed By: #### 2 67974 ####[facility],[address] [place] [address] 22323 Morphology Adrian (Bld) [Interp] N/A Normal [facility] Comment on above: Performed By: #### 2 26879 ####[facility],[address] [place] [address] 27400 Neut # 3.81 x10EE3/UL Normal 1.50 - 7.10 [facility] Comment on above: Performed By: #### 2 14159 ####[facility],[address] [place] [address] 94985 Neutrophils/100 WBC (Bld) 51.2 % Normal 46.0 - 76.0 [facility] Comment on above: Performed By: #### 2 95768 ####[facility],[address] [place] [address] 60029 PLATELET 229 x10EE3/UL Normal 150 - 450 [facility] Comment on above: Performed By: #### 2 27022 ####[facility],[address] [place] [address] 99961 Platelet mean volume (Bld) [Entitic vol] 8.3 fL Normal 6.6 - 10.5 [facility] Comment on above: Result Comment: AUTO MATED DIFFERENTIAL Performed By: #### 2 63988 ####[facility],[address] [place] [address] 76706 RBC 4.06 x 10EE6/UL Low 4.10 - 5.30 [facility] Comment on above: Performed By: #### 2 95756 ####[facility],[address] [place] [address] 44101 WBC 7.4 x 10EE3/UL Normal 4.5 - 10.8 [facility] Comment on above: Performed By: #### 2 00351 ####[facility],[address] [place] [address] 16318 CMP with eGFRon 03-12-2024 AGE 43 years Normal [facility] Comment on above: Performed By: #### 2 78927 ####[facility],[address] [place] [address] 17943 Albumin [Mass/Vol] 3.6 g/dL Normal 3.4 - 5.0 [facility] Comment on above: Performed By: #### 2 65964 ####[facility],[address] [place] [address] 98012 Albumin/Globulin [Mass ratio] 1.1 {ratio} Normal 0.9 - 1.6 [facility] Comment on above: Performed By: #### 2 73648 ####[facility],[address] [place] [address] 75408 ALK PHOS 122 U/L High 46 - 116 [facility] Comment on above: Performed By: #### 2 94017 ####[facility],[address] [place] [address] 64897 ALT [Catalytic activity/Vol] 30 U/L Normal 16 - 63 [facility] Comment on above: Performed By: #### 2 14767 ####[facility],[address] [place] [address] 88318 Anion gap [Moles/Vol] 13 mmol/L Normal 10 - 20 [facility] Comment on above: Performed By: #### 2 81423 ####[facility],[address] [place] [address] 48263 AST [Catalytic activity/Vol] 18 U/L Normal 13 - 39 [facility] Comment on above: Performed By: #### 2 90217 ####[facility],[address] [place] [address] 76425 B/C RATIO 8 ratio Normal 0 - 30 [facility] Comment on above: Performed By: #### 2 19458 ####[facility],[address] [place] [address] 17412 Bilirubin [Mass/Vol] 0.4 mg/dL Normal 0.2 - 1.0 [facility] Comment on above: Performed By: #### 2 20797 ####[facility],[address] [place] [address] 66262 Calcium [Mass/Vol] 8.7 mg/dL Normal 8.5 - 10.1 [facility] Comment on above: Performed By: #### 2 23408 ####[facility],[address] [place] [address] 96094 Chloride [Moles/Vol] 104 mmol/L Normal 98 - 107 [facility] Comment on above: Performed By: #### 2 17314 ####[facility],[address] [place] [address] 24314 CMP with eGFR Normal [facility] Comment on above: Result Comment: COMP REHENSIVE METABOLIC PANEL Performed By: #### 2 83669 ####[facility],[address] [place] [address] 75619 CO2 [Moles/Vol] 26.3 mmol/L Normal 21.0 - 32.0 [facility] Comment on above: Performed By: #### 2 53492 ####[facility],[address] [place] [address] 55573 Creatinine [Mass/Vol] 0.99 mg/dL Normal 0.55 - 1.02 [facility] Comment on above: Performed By: #### 2 42888 ####[address] [address] GFR/1.73 sq M.predicted among non-blacks MDRD (S/P/Bld) [Vol rate/Area] mL/min/{1.73_m2} Normal 60 - 999 [facility] Comment on above: Performed By: #### 2 48836 ####[facility],[address] [place] [address] Result Comment: ACCO RDING TO THE NATIONAL KIDNEY DISEASE EDUCATION PROGRAM(NKDE), A NORMAL eGFRIS A VALUE GREATER THAN OR EQUAL TO 60 ML/MIN/1.73 SQ METERS.CHRONIC KIDNEY DISEASE: <60mL/MIN/1.73 SQ METERSKIDNEY FAILURE: <15mL/MIN/1.73 SQ METERSTHIS TEST SHOULD ONLY BE USED FOR PATIENTS 18 YEARS OF AGE AND OLDER. Globulin (S) [Mass/Vol] 3.4 g/dL Normal 1.5 - 3.8 [facility] Comment on above: Performed By: #### 2 04576 ####[address] [address] Glucose [Mass/Vol] 123 mg/dL High 74 - 106 [facility] Comment on above: Performed By: #### 2 30300 ####[address] [address] Potassium [Moles/Vol] 3.8 mmol/L Normal 3.5 - 5.1 [facility] Comment on above: Performed By: #### 2 68824 ####[address] [address]997 Protein [Mass/Vol] 7.0 g/dL Normal 6.4 - 8.2 [facility] Comment on above: Performed By: #### 2 95367 ####[facility],[address] [place] [address] Sodium [Moles/Vol] 139 mmol/L Normal 136 - 145 [facility] Comment on above: Performed By: #### 2 30260 ####[facility],[address] [place] [address] Urea nitrogen [Mass/Vol] 8 mg/dL Normal 7 - 18 [facility] Comment on above: Performed By: #### 2 72161 ####[facility],[address] [place] [address] LIPASEon 03-12-2024 Lipase [Catalytic activity/Vol] 44.0 U/L Normal 15.0 - 78.0 [facility] Comment on above: Result Comment: *PLE ASE NOTE THAT RANGES FOR LIPASE HAVE CHANGED OF 09/11/23 DUE TO AN ASSAYUPDATE BY THE ELECTRONICS REPAIR TECHNICIAN.THE NEW ASSAY RANGE IS 6-250 U/L, WITH A REFERENCERANGE OF 16-77 U/L. Performed By: #### 2 12469 ####[facility],[address] [place] [address] URINALYSISon 03-12-2024 Amorphous 4+ Normal [facility] Comment on above: Performed By: #### 2 80352 ####[facility],[address] [place] [address] Bacteria NONE Normal [facility] Comment on above: Performed By: #### 2 78382 ####[facility],[address] [place] [address] Bilirubin Ql (U) Negative Normal NORMAL: NEGATIVE [facility] Comment on above: Performed By: #### 2 05473 ####[facility],[address] [place] [address] Casts NONE Normal [facility] Comment on above: Performed By: #### 2 30149 ####[facility],[address] [place] [address] Clarity (U) very cloudy Normal NORMAL: CLEAR [facility] Comment on above: Performed By: #### 2 64633 ####[facility],[address] [place] [address] 64821 Color (U) yellow Normal NORMAL: YELLOW [facility] Comment on above: Performed By: #### 2 72819 ####[facility],[address] [place] [address] 64165 Crystals LM Nom (Urine sed) NONE Normal [facility] Comment on above: Performed By: #### 2 27314 ####[facility],[address] [place] [address] 23371 Epi Cells MANY Normal [facility] Comment on above: Performed By: #### 2 43354 ####[facility],[address] [place] [address] 56437 Glucose Ql (U) NORM Normal NORMAL: NORMAL [facility] Comment on above: Performed By: #### 2 41708 ####[facility],[address] [place] [address] 97989 Hemoglobin Ql (U) Negative Normal NORMAL: NEGATIVE [facility] Comment on above: Performed By: #### 2 71038 ####[facility],[address] [place] [address] 25792 Ketone Negative Normal NORMAL: NEGATIVE [facility] Comment on above: Performed By: #### 2 30093 ####[facility],[address] [place] [address] 31080 Leukocytes Negative Normal NORMAL: NEGATIVE [facility] Comment on above: Performed By: #### 2 18819 ####[facility],[address] [place] [address] 93189 Mucous 4+ Normal [facility] Comment on above: Performed By: #### 2 87107 ####[facility],[address] [place] [address] 38315 Nitrite Ql (U) Negative Normal NORMAL: NEGATIVE [facility] Comment on above: Performed By: #### 2 71496 ####[facility],[address] [place] [address] pH (U) 5 [pH] Normal NORMAL: 5.0-8.0 [facility] Comment on above: Performed By: #### 2 19441 ####[facility],[address] [place] [address] Protein Ql (U) 15 Abnormal NORMAL: NEGATIVE [facility] Comment on above: Performed By: #### 2 50320 ####[facility],[address] [place] [address] Rbc 0-5 Normal 0-3/hpf [facility] Comment on above: Performed By: #### 2 37424 ####[facility],[address] [place] [address] Sp [place] 1.025 Normal NORMAL: 1.010-1.030 [facility] Comment on above: Performed By: #### 2 52206 ####[facility],[address] [place] [address] Specimen Type UNSPECIFIED Normal [facility] Comment on above: Performed By: #### 2 07086 ####[facility],[address] [place] [address] Urinalysis dipstick W Reflex Microscopic panel (U) SEE BELOW Normal [facility] Comment on above: Result Comment: MICR OSCOPIC Performed By: #### 2 93743 ####[facility],[address] [place] [address] Urobilinog NORM Normal NORMAL: NORMAL [facility] Comment on above: Performed By: #### 2 11640 ####[facility],[address] [place] [address] Wbc 1-5 Normal 0-5/hpf [facility] Comment on above: Performed By: #### 2 15801 ####[facility],[address] [place] [address] Yeast NONE Normal [facility] Comment on above: Performed By: #### 2 44635 ####[facility],[address] [facility] [address] Abdomen/Pelvis without Conto n 03-05-2024 Abdomen/Pelvis without Cont Normal [facility] CBC W/Diff, Automatedon 02-13 Absolute Lymph 3.87 X10 3/uL Normal 0.83-4.51 [facility] Comment on above: Performed By: #### L 501.2450, L500.4050, L100.0100 ####[facility] [address] [place], [address] Absolute Neut 4.2 X10 3/uL Normal 2.0-7.7 [facility] Comment on above: Performed By: #### L 501.2450, L500.4050, L100.0100 ####[facility] [address] [place], [address] Basophils/100 WBC (Bld) 0.8 % Normal 0-1 [facility] Comment on above: Performed By: #### L 501.2450, L500.4050, L100.0100 ####[facility] [address] [place], [address] Eosinophils/100 WBC (Bld) 2.6 % Normal 0-5 [facility] Comment on above: Performed By: #### L 501.2450, L500.4050, L100.0100 ####[facility] [address] [place], [address] Erythrocyte distribution width (RBC) [Ratio] 13.2 % Normal 11.6-14.6 [facility] Comment on above: Performed By: #### L 501.2450, L500.4050, L100.0100 ####[facility] [address] [place], [address] Hematocrit (Bld) [Volume fraction] 38.1 % Normal 37-47 [facility] Comment on above: Performed By: #### L 501.2450, L500.4050, L100.0100 ####[facility] [address] [place], [address] Hemoglobin (Bld) [Mass/Vol] 12.7 g/dL Normal 12.0-15.0 [facility] Comment on above: Performed By: #### L 501.2450, L500.4050, L100.0100 ####[facility] [address] [place], [address] IG% 1.000 High 0.0-0.9 [facility] Comment on above: Result Comment: IG% - Immature Granulocytes (promyelocytes, myelocytes andmetamyelocytes) > 1% indicates that a LEFT SHIFT is Present. Performed By: #### L 501.2450, L500.4050, L100.0100 ####[facility] [address] [place], [address] Lymphocytes/100 WBC (Bld) 43.0 % High 19-41 [facility] Comment on above: Performed By: #### L 501.2450, L500.4050, L100.0100 ####[facility] [address] [place], [address] MCH (RBC) [Entitic mass] 30.5 pg Normal 27.0-32.0 [facility] Comment on above: Performed By: #### L 501.2450, L500.4050, L100.0100 ####[facility] [address] [place], [address] MCHC (RBC) [Mass/Vol] 33.3 g/dL Normal 32-36 [facility] Comment on above: Performed By: #### L 501.2450, L500.4050, L100.0100 ####[facility] [address] [place], [address] MCV (RBC) [Entitic vol] 91.6 fL Normal 81-99 [facility] Comment on above: Performed By: #### L 501.2450, L500.4050, L100.0100 ####[facility] [address] [place], [address] Monocytes/100 WBC (Bld) 5.9 % Normal 0-10 [facility] Comment on above: Performed By: #### L 501.2450, L500.4050, L100.0100 ####[facility] [address] [place], [address] Neutrophils/100 WBC (Bld) 46.7 % Low 47-70 [facility] Comment on above: Performed By: #### L 501.2450, L500.4050, L100.0100 ####[facility] [address] [place], [address] Nucleated RBC (Bld) [#/Vol] 0 10*3/uL Normal 0-5 [facility] Comment on above: Performed By: #### L 501.2450, L500.4050, L100.0100 ####[facility] [address] [place], [address] Platelet mean volume (Bld) [Entitic vol] 10.5 fL Normal 6.2-12.0 [facility] Comment on above: Performed By: #### L 501.2450, L500.4050, L100.0100 ####[facility] [address] [place], [address] Platelets (Bld) [#/Vol] 261 10*3/uL Normal 150-450 [facility] Comment on above: Performed By: #### L 501.2450, L500.4050, L100.0100 ####[facility] [address] [place], [address] RBC (Bld) [#/Vol] 4.16 10*6/uL Low 4.2-5.4 [facility] Comment on above: Performed By: #### L 501.2450, L500.4050, L100.0100 ####[facility] [address] [place], [address] RDW SD 43.8 fl Normal 35.1-43.9 [facility] Comment on above: Performed By: #### L 501.2450, L500.4050, L100.0100 ####[facility] [address] [place], [address] WBC (Bld) [#/Vol] 9.0 10*3/uL Normal 4.4-11.0 [facility] Comment on above: Performed By: #### L 501.2450, L500.4050, L100.0100 ####[facility] [address] [place], [address] Comprehensive Metabolic Prof [facility] 03-05-2024 Albumin [Mass/Vol] 3.9 g/dL Normal 3.2-5.0 [facility] Comment on above: Performed By: #### L 501.2450, L500.4050, L100.0100 ####[facility] [address] [place], [address] Albumin/Globulin [Mass ratio] 1.1 {ratio} Normal 0.9-2.4 [facility] Comment on above: Performed By: #### L 501.2450, L500.4050, L100.0100 ####[facility] [address] [place], [address] ALK P 115 U/L Normal 45-117 [facility] Comment on above: Performed By: #### L 501.2450, L500.4050, L100.0100 ####[facility] [address] [place], [address] ALT [Catalytic activity/Vol] 23 U/L Normal 13-56 [facility] Comment on above: Performed By: #### L 501.2450, L500.4050, L100.0100 ####[facility] [address] [place], [address] AST [Catalytic activity/Vol] 13 U/L Low 15-37 [facility] Comment on above: Performed By: #### L 501.2450, L500.4050, L100.0100 ####[facility] [address] [place], [address] Bilirubin [Mass/Vol] 0.70 mg/dL Normal 0.20-1.00 [facility] Comment on above: Result Comment: For patients on eltrombopag therapy, use of Dimension [place] TBIL is not recommended. Performed By: #### L 501.2450, L500.4050, L100.0100 ####[facility] [address] [place], [address] BUN/CRE 12.5 RATIO Normal 10-20 [facility] Comment on above: Performed By: #### L 501.2450, L500.4050, L100.0100 ####[facility] [address] [place], [address] CA,Total 9.0 mg/dL Normal 8.5-10.1 [facility] Comment on above: Performed By: #### L 501.2450, L500.4050, L100.0100 ####[facility] [address] [place], [address] Chloride [Moles/Vol] 107 mmol/L Normal 98-107 [facility] Comment on above: Performed By: #### L 501.2450, L500.4050, L100.0100 ####[facility] [address] [place], [address] CO2 [Moles/Vol] 25.0 mmol/L Normal 21.0-32.0 [facility] Comment on above: Performed By: #### L 501.2450, L500.4050, L100.0100 ####[facility] [address] [place], [address] Creatinine [Mass/Vol] 1.20 mg/dL High 0.55-1.02 [facility] Comment on above: Result Comment: The validity of the calculated GFR GFRAA in patients over70 years has not been determined. Clinical correlation isessential. Performed By: #### L 501.2450, L500.4050, L100.0100 ####[facility] [address] [place], [address] ECRCL 61.63 ml/min Normal [facility] Comment on above: Performed By: #### L 501.2450, L500.4050, L100.0100 ####[facility] [address] [place], [address] EST GFR - AA 63 mL/min Normal >60 [facility] Comment on above: Result Comment: Afri can [place] GFR Calc Performed By: #### L 501.2450, L500.4050, L100.0100 ####[facility] [address] [place], [address] GAP 6 Normal 5-15 [facility] Comment on above: Performed By: #### L 501.2450, L500.4050, L100.0100 ####[facility] [address] [place], [address] GFR/1.73 sq M.predicted among non-blacks MDRD (S/P/Bld) [Vol rate/Area] 52 mL/min/{1.73_m2} Low >60 [facility] Comment on above: Result Comment: Non- GFR Calc Performed By: #### L 501.2450, L500.4050, L100.0100 ####[facility] [address] [place], [address] Globulin (S) [Mass/Vol] 3.6 g/dL Normal 2.2-4.2 [facility] Comment on above: Performed By: #### L 501.2450, L500.4050, L100.0100 ####[facility] [address] [place], [address] Glucose [Mass/Vol] 118 mg/dL High 74-106 [facility] Comment on above: Result Comment: Fast ing Glucose result from 100 to 125 mg/dLsuggests IMPAIRED HOMEOSTASIS per A.D.A. criteria. Performed By: #### L 501.2450, L500.4050, L100.0100 ####[facility] [address] [place], [address] Potassium [Moles/Vol] 3.5 mmol/L Normal 3.5-5.1 [facility] Comment on above: Performed By: #### L 501.2450, L500.4050, L100.0100 ####[facility] [address] [place], [address] Sodium [Moles/Vol] 138 mmol/L Normal 136-145 [facility] Comment on above: Performed By: #### L 501.2450, L500.4050, L100.0100 ####[facility] [address] [place], [address] T PROT 7.5 g/dL Normal 6.4-8.2 [facility] Comment on above: Performed By: #### L 501.2450, L500.4050, L100.0100 ####[facility] [address] [place], [address] Urea nitrogen [Mass/Vol] 15 mg/dL Normal 7-18 [facility] Comment on above: Performed By: #### L 501.2450, L500.4050, L100.0100 ####[facility] [address] [place], [address] Emergency Department Summary on 03-05-2024 Emergency Department Summary Normal [facility] Lipaseon 03-05-2024 Lipase [Catalytic activity/Vol] 55 U/L Normal 13-75 [facility] Comment on above: Result Comment: Jay mortensen note:LIPASE revised reference range effective 22.New Lipase methodology. Expected to produce lower valuesthan the previous assay method.NEW Reference Range: 13 - 75 U/L Performed By: #### L 501.2450, L500.4050, L100.0100 ####[facility] [address] [place], [address] Urinalysis, Completeon 03-05 BACTERIA 1+ /hpf Normal None Seen [facility] Comment on above: Order Comment: CLEAN CATCH Performed By: #### L 400.0001 ####[facility] [address] [place], [address] EPI,SQUAMOUS 10-25 SEEN Normal 5-10 [facility] Comment on above: Order Comment: CLEAN CATCH Performed By: #### L 400.0001 ####[facility] [address] [place], [address] RBC 0-5 SEEN Normal 0-5 [facility] Comment on above: Order Comment: CLEAN CATCH Performed By: #### L 400.0001 ####[facility] [address] [place], [address] WBC 0-5 SEEN Normal 0-5 [facility] Comment on above: Order Comment: CLEAN CATCH Performed By: #### L 400.0001 ####[facility] [address] [place], [address] Mucus Ql (Urine sed) 0 SEEN Normal [facility] Comment on above: Order Comment: CLEAN CATCH Performed By: #### L 400.0001 ####[facility] [address] [place], [address] CT ABDOMEN/PELVIS Won 2023 CT ABDOMEN/PELVIS W Normal [facility] TROPONIN I, HIGH SENSITIVITY on 02-29-2024 HS TROPONIN <4.0 Normal 0.0 - 51.4 [facility] Comment on above: Performed By: #### 2 41444 ####[facility],[address] [place] [address] C-REACTIVE PROTEINon 024 CRP 1.01 mg/dl High 0.00 - 0.90 [facility] Comment on above: Performed By: #### 2 35044 ####[facility],[address] [place] [address] CBC + DIFFon 02-28-2024 Baso # 0.02 x10EE3/UL Normal 0.00 - 0.10 [facility] Comment on above: Performed By: #### 2 64645 ####[facility],[address] [place] [address] Basophils/100 WBC (Bld) 0.3 % Normal 0.0 - 2.0 [facility] Comment on above: Performed By: #### 2 91384 ####[facility],[address] [place] [address] CBC + DIFF Normal [facility] Comment on above: Result Comment: CBC- COMPLETE BLOOD COUNT Performed By: #### 2 17426 ####[facility],[address] [place] [address] EO # 0.21 x10EE3/UL Normal 0.00 - 0.50 [facility] Comment on above: Performed By: #### 2 00313 ####[facility],[address] [place] [address] Eosinophils/100 WBC (Bld) 2.3 % Normal 0.0 - 7.0 [facility] Comment on above: Performed By: #### 2 10220 ####[facility],[address] [place] [address] Erythrocyte distribution width (RBC) [Ratio] 13.1 % Normal 12.0 - 15.6 [facility] Comment on above: Performed By: #### 2 02900 ####[facility],[address] [place] [address] Hematocrit (Bld) [Volume fraction] 37.3 % Normal 34.0 - 46.0 [facility] Comment on above: Performed By: #### 2 60984 ####[facility],[address] [place] [address] Hemoglobin (Bld) [Mass/Vol] 12.5 g/dL Normal 12.0 - 16.0 [facility] Comment on above: Performed By: #### 2 08373 ####[place] [address] Lymph # 3.19 x10EE3/UL High 0.80 - 2.80 [facility] Comment on above: Performed By: #### 2 57245 ####[facility],[address] [place], [place] [address] Lymphocytes/100 WBC (Bld) 34.3 % Normal 20.0 - 45.0 [facility] Comment on above: Performed By: #### 2 69574 ####[facility],[address] [place], [place] [address] MANUAL DIFF N/A Normal [facility] Comment on above: Performed By: #### 2 00024 ####[facility],[address] [place] [address] MCH (RBC) [Entitic mass] 30 pg Normal 27 - 33 [facility] Comment on above: Performed By: #### 2 39729 ####[facility],[address] [place] [address] MCHC 34 X10 3 Normal 32 - 36 [facility] Comment on above: Performed By: #### 2 93548 ####[facility],[address] [place] [address]99 MCV (RBC) [Entitic vol] 90 fL Normal 80 - 99 [facility] Comment on above: Performed By: #### 2 82525 ####[facility],[address] [place] [address] 61688 [place] # 0.51 x10EE3/UL Normal 0.20 - 1.00 [facility] Comment on above: Performed By: #### 2 63661 ####[facility],[address] [place] [address] MONOS % 5.5 % Normal 0.0 - 10.0 [facility] Comment on above: Performed By: #### 2 87661 ####[facility],[address] [place] [address] 16703 Morphology Adrian (Bld) [Interp] N/A Normal [facility] Comment on above: Performed By: #### 2 56165 ####[facility],[address] [place] [address]4478 Neut # 5.38 x10EE3/UL Normal 1.50 - 7.10 [facility] Comment on above: Performed By: #### 2 29961 ####[facility],[address] [place] [address] 26725 Neutrophils/100 WBC (Bld) 57.8 % Normal 46.0 - 76.0 [facility] Comment on above: Performed By: #### 2 88940 ####[facility],[address] [place] [address] PLATELET 246 x10EE3/UL Normal 150 - 450 [facility] Comment on above: Performed By: #### 2 71138 ####[facility],[address] [place] [address]39[address] Platelet mean volume (Bld) [Entitic vol] 8.0 fL Normal 6.6 - 10.5 [facility] Comment on above: Result Comment: AUTO MATED DIFFERENTIAL Performed By: #### 2 07684 ####[facility],[address] [place] [address] 27663 RBC 4.15 x 10EE6/UL Normal 4.10 - 5.30 [facility] Comment on above: Performed By: #### 2 40399 ####[facility],[address] [place] [address]89[address] WBC 9.3 x 10EE3/UL Normal 4.5 - 10.8 [facility] Comment on above: Performed By: #### 2 38527 ####[facility],[address] [place] [address] 36768 CMP with eGFRon 02-28-2024 AGE 43 years Normal [facility] Comment on above: Performed By: #### 2 55220 ####[facility],[address] [place] [address] 99442 Albumin [Mass/Vol] 3.7 g/dL Normal 3.4 - 5.0 [facility] Comment on above: Performed By: #### 2 16421 ####[facility],[address] [place] [address] 97[address] Albumin/Globulin [Mass ratio] 1.0 {ratio} Normal 0.9 - 1.6 [facility] Comment on above: Performed By: #### 2 21304 ####[facility],[address] [place] [address] 98382 ALK PHOS 108 U/L Normal 46 - 116 [facility] Comment on above: Performed By: #### 2 36121 ####[facility],[address] [place] [address] 35993 ALT [Catalytic activity/Vol] 28 U/L Normal 16 - 63 [facility] Comment on above: Performed By: #### 2 10290 ####[facility],[address] [place] [address] 85263 Anion gap [Moles/Vol] 11 mmol/L Normal 10 - 20 [facility] Comment on above: Performed By: #### 2 47586 ####[facility],[address] [place] [address] 56007 AST [Catalytic activity/Vol] 15 U/L Normal 13 - 39 [facility] Comment on above: Performed By: #### 2 21456 ####[facility],[address] [place] [address] 82267 B/C RATIO 19 ratio Normal 0 - 30 [facility] Comment on above: Performed By: #### 2 55810 ####[facility],[address] [place] [address]8940 Bilirubin [Mass/Vol] 0.7 mg/dL Normal 0.2 - 1.0 [facility] Comment on above: Performed By: #### 2 76876 ####[facility],[address] [place] [address] 05743 Calcium [Mass/Vol] 8.9 mg/dL Normal 8.5 - 10.1 [facility] Comment on above: Performed By: #### 2 28165 ####[facility],[address] [place] [address] 49204 Chloride [Moles/Vol] 103 mmol/L Normal 98 - 107 [facility] Comment on above: Performed By: #### 2 54111 ####[facility],[address] [place] [address] 02700 CMP with eGFR Normal [facility] Comment on above: Result Comment: COMP REHENSIVE METABOLIC PANEL Performed By: #### 2 46620 ####[facility],[address] [place] [address] 33837 CO2 [Moles/Vol] 27.2 mmol/L Normal 21.0 - 32.0 [facility] Comment on above: Performed By: #### 2 36717 ####[facility],[address] [place] [address] 95646 Creatinine [Mass/Vol] 1.07 mg/dL High 0.55 - 1.02 [facility] Comment on above: Performed By: #### 2 67803 ####[facility],[address] [place] [address] 93944 eGFR 56 ML/MINUTE Low 60 - 999 [facility] Comment on above: Performed By: #### 2 34955 ####[address] [address] GFR/1.73 sq M.predicted among non-blacks MDRD (S/P/Bld) [Vol rate/Area] mL/min/{1.73_m2} Normal 60 - 999 [facility] Comment on above: Result Comment: ACCO RDING TO THE NATIONAL KIDNEY DISEASE EDUCATION PROGRAM(NKDE), A NORMAL eGFRIS A VALUE GREATER THAN OR EQUAL TO 60 ML/MIN/1.73 SQ METERS.CHRONIC KIDNEY DISEASE: <60mL/MIN/1.73 SQ METERSKIDNEY FAILURE: <15mL/MIN/1.73 SQ METERSTHIS TEST SHOULD ONLY BE USED FOR PATIENTS 18 YEARS OF AGE AND OLDER. Performed By: #### 2 27179 ####[address] [address] Globulin (S) [Mass/Vol] 3.6 g/dL Normal 1.5 - 3.8 [facility] Comment on above: Performed By: #### 2 82525 ####[address] [address] Glucose [Mass/Vol] 109 mg/dL High 74 - 106 [facility] Comment on above: Performed By: #### 2 57885 ####[address] [address] Potassium [Moles/Vol] 3.7 mmol/L Normal 3.5 - 5.1 [facility] Comment on above: Performed By: #### 2 48392 ####[address] [address] Protein [Mass/Vol] 7.3 g/dL Normal 6.4 - 8.2 [facility] Comment on above: Performed By: #### 2 55425 ####[facility],[address] [place] [address] Sodium [Moles/Vol] 137 mmol/L Normal 136 - 145 [facility] Comment on above: Performed By: #### 2 13347 ####[place] [address] Urea nitrogen [Mass/Vol] 20 mg/dL High 7 - 18 [facility] Comment on above: Performed By: #### 2 65475 ####[place] [id number] LIPASEon 02-28-2024 Lipase [Catalytic activity/Vol] 52.0 U/L Normal 15.0 - 78.0 [facility] Comment on above: Result Comment: *PLE ASE NOTE THAT RANGES FOR LIPASE HAVE CHANGED OF 09/11/23 DUE TO AN ASSAYUPDATE BY THE ELECTRONICS REPAIR TECHNICIAN.THE NEW ASSAY RANGE IS 6-250 U/L, WITH A REFERENCERANGE OF 16-77 U/L. Performed By: #### 2 17636 ####[place] [id number] URINALYSISon 02-28-2024 Amorphous NONE Normal [facility] Comment on above: Performed By: #### 2 35110 ####[place] [id number] Bacteria 1+ Normal [facility] Comment on above: Performed By: #### 2 34591 ####[place] [address] Bilirubin Ql (U) Negative Normal NORMAL: NEGATIVE [facility] Comment on above: Performed By: #### 2 73984 ####[place] [address] Casts NONE Normal [facility] Comment on above: Performed By: #### 2 18081 ####[facility],[address] [place] [address] 86981 Clarity (U) sl.cloudy Normal NORMAL: CLEAR [facility] Comment on above: Performed By: #### 2 26962 ####[facility],[address] [place] [address] 35636 Color (U) yellow Normal NORMAL: YELLOW [facility] Comment on above: Performed By: #### 2 55545 ####[facility],[address] [place] [address] 85240 Crystals LM Nom (Urine sed) NONE Normal [facility] Comment on above: Performed By: #### 2 79348 ####[facility],[address] [place] [address] 81621 Epi Cells MANY Normal [facility] Comment on above: Performed By: #### 2 94203 ####[facility],[address] [place] [address] 79396 Glucose Ql (U) NORM Normal NORMAL: NORMAL [facility] Comment on above: Performed By: #### 2 04072 ####[facility],[address] [place] [address] 93150 Hemoglobin Ql (U) 10 Abnormal NORMAL: NEGATIVE [facility] Comment on above: Performed By: #### 2 89888 ####[facility],[address] [place] [address] 42490 Ketone Negative Normal NORMAL: NEGATIVE [facility] Comment on above: Performed By: #### 2 27778 ####[facility],[address] [place] [address] 28034 Leukocytes 25 Abnormal NORMAL: NEGATIVE [facility] Comment on above: Performed By: #### 2 11759 ####[facility],[address] [place] [address] 38564 Mucous 2+ Normal [facility] Comment on above: Performed By: #### 2 41616 ####[facility],[address] [place] [address] Nitrite Ql (U) Negative Normal NORMAL: NEGATIVE [facility] Comment on above: Performed By: #### 2 53469 ####[facility] [facility],[address] [place] [address] pH (U) 5 [pH] Normal NORMAL: 5.0-8.0 [facility] Comment on above: Performed By: #### 2 64476 ####[facility],[address] [place] [address] Protein Ql (U) 15 Abnormal NORMAL: NEGATIVE [facility] Comment on above: Performed By: #### 2 13409 ####[facility],[address] [place] [address] Rbc NONE Normal 0-3/hpf [facility] Comment on above: Performed By: #### 2 05219 ####[facility],[address] [place] [address] Sp [place] 1.020 Normal NORMAL: 1.010-1.030 [facility] Comment on above: Performed By: #### 2 88802 ####[facility],[address] [place] [address] Specimen Type Void Normal [facility] Comment on above: Performed By: #### 2 68542 ####[facility],[address] [place] [address] Urinalysis dipstick W Reflex Microscopic panel (U) SEE BELOW Normal [facility] Comment on above: Result Comment: MICR OSCOPIC Performed By: #### 2 26013 ####[facility],[address] [place] [address] Urobilinog NORM Normal NORMAL: NORMAL [facility] Comment on above: Performed By: #### 2 43451 ####[facility],[address] [place] [address] Wbc 1-5 Normal 0-5/hpf [facility] Comment on above: Performed By: #### 2 53180 ####[facility],[address] [place] [address] 47123 Yeast 2+ Normal [facility] Comment on above: Performed By: #### 2 62754 ####[facility],[address] [place] [address] 31906 Miscellaneous Lab Procedureo n 02-25-2024 MISC LAB TEST Normal [facility] Comment on above: Order Comment: #[id number] aPTT MIXING STUDIES BLUE FRZ PLASMALC#[id number] aPTT MIXING STUDIES BLUE FRZ PLASMA Result Comment: TEST RESULTS LIMITSaPTT Mixing Studies aPTT 28.4 sec 22.9-30.2 The aPTT is normal so plasma mixing tests are notindicated. TESTING PERFORMED AT [facility]. ORIGINAL REPORT ON FILE IN LAB CONTAINS ADDITIONAL TEST SITE INFORMATION. Performed By: #### L 300.4310, L300.3900, L801.1541 ####[facility] [address] [place], [place], [address] Abdomen/Pelvis without Conto n 02-24-2024 Abdomen/Pelvis without Cont Normal [facility] CBC W/Diff, Automatedon 02-12 Absolute Lymph 3.93 X10 3/uL Normal 0.83-4.51 [facility] Comment on above: Performed By: #### L 501.3160, L500.4050, L100.0100 ####[facility] [address] [place], [address] Absolute Neut 6.1 X10 3/uL Normal 2.0-7.7 [facility] Comment on above: Performed By: #### L 501.2450, L500.4050, L100.0100 ####[facility] [address] [place], [address] Basophils/100 WBC (Bld) 0.9 % Normal 0-1 [facility] Comment on above: Performed By: #### L 501.2450, L500.4050, L100.0100 ####[facility] [address] [place], [address] Eosinophils/100 WBC (Bld) 2.4 % Normal 0-5 [facility] Comment on above: Performed By: #### L 501.2450, L500.4050, L100.0100 ####[facility] [address] [place], [address] Erythrocyte distribution width (RBC) [Ratio] 13.1 % Normal 11.6-14.6 [facility] Comment on above: Performed By: #### L 501.2450, L500.4050, L100.0100 ####[facility] [address] [place], [address] Hematocrit (Bld) [Volume fraction] 41.0 % Normal 37-47 [facility] Comment on above: Performed By: #### L 501.2450, L500.4050, L100.0100 ####[facility] [address] [place], [address] Hemoglobin (Bld) [Mass/Vol] 13.3 g/dL Normal 12.0-15.0 [facility] Comment on above: Performed By: #### L 501.2450, L500.4050, L100.0100 ####[facility] [address] [place], [address] IG% 2.100 High 0.0-0.9 [facility] Comment on above: Result Comment: IG% - Immature Granulocytes (promyelocytes, myelocytes andmetamyelocytes) > 1% indicates that a LEFT SHIFT is Present. Performed By: #### L 501.2450, L500.4050, L100.0100 ####[facility] [address] [place], [address] Lymphocytes/100 WBC (Bld) 34.3 % Normal 19-41 [facility] Comment on above: Performed By: #### L 501.2450, L500.4050, L100.0100 ####[facility] [address] [place], [address] MCH (RBC) [Entitic mass] 29.8 pg Normal 27.0-32.0 [facility] Comment on above: Performed By: #### L 501.2450, L500.4050, L100.0100 ####[facility] [address] [place], [address] MCHC (RBC) [Mass/Vol] 32.4 g/dL Normal 32-36 [facility] Comment on above: Performed By: #### L 501.2450, L500.4050, L100.0100 ####[facility] [address] [place], [address] MCV (RBC) [Entitic vol] 91.9 fL Normal 81-99 [facility] Comment on above: Performed By: #### L 501.2450, L500.4050, L100.0100 ####[facility] [address] [place], [address] Monocytes/100 WBC (Bld) 6.8 % Normal 0-10 [facility] Comment on above: Performed By: #### L 501.2450, L500.4050, L100.0100 ####[facility] [address] [place], [address] Neutrophils/100 WBC (Bld) 53.5 % Normal 47-70 [facility] Comment on above: Performed By: #### L 501.2450, L500.4050, L100.0100 ####[facility] [address] [place], [address] Nucleated RBC (Bld) [#/Vol] 0 10*3/uL Normal 0-5 [facility] Comment on above: Performed By: #### L 501.2450, L500.4050, L100.0100 ####[facility] [address] [place], [address] Platelet mean volume (Bld) [Entitic vol] 9.7 fL Normal 6.2-12.0 [facility] Comment on above: Performed By: #### L 501.2450, L500.4050, L100.0100 ####[facility] [address] [place], [address] Platelets (Bld) [#/Vol] 272 10*3/uL Normal 150-450 [facility] Comment on above: Performed By: #### L 501.2450, L500.4050, L100.0100 ####[facility] [address] [place], [address] RBC (Bld) [#/Vol] 4.46 10*6/uL Normal 4.2-5.4 [facility] Comment on above: Performed By: #### L 501.2450, L500.4050, L100.0100 ####[facility] [address] [place], [address] RDW SD 43.6 fl Normal 35.1-43.9 [facility] Comment on above: Performed By: #### L 501.2450, L500.4050, L100.0100 ####[facility] [address] [place], [address] WBC (Bld) [#/Vol] 11.5 10*3/uL High 4.4-11.0 [facility] Comment on above: Performed By: #### L 501.2450, L500.4050, L100.0100 ####[facility] [address] [place], [address] Comprehensive Metabolic Prof ilon 02-24-2024 Albumin [Mass/Vol] 3.9 g/dL Normal 3.2-5.0 [facility] Comment on above: Performed By: #### L 501.2450, L500.4050, L100.0100 ####[facility] [address] [place], [address] Albumin/Globulin [Mass ratio] 1.0 {ratio} Normal 0.9-2.4 [facility] Comment on above: Performed By: #### L 501.2450, L500.4050, L100.0100 ####[facility] [address] [place], [address] ALK P 128 U/L High 45-117 [facility] Comment on above: Performed By: #### L 501.2450, L500.4050, L100.0100 ####[facility] [address] [place], [address] ALT [Catalytic activity/Vol] 28 U/L Normal 13-56 [facility] Comment on above: Performed By: #### L 501.2450, L500.4050, L100.0100 ####[facility] [address] [place], [address] AST [Catalytic activity/Vol] 19 U/L Normal 15-37 [facility] Comment on above: Result Comment: Mode rate Hemolysis, Result may be falsely increased. Performed By: #### L 501.2450, L500.4050, L100.0100 ####[facility] [address] [place], [address] Bilirubin [Mass/Vol] 0.70 mg/dL Normal 0.20-1.00 [facility] Comment on above: Result Comment: For patients on eltrombopag therapy, use of Dimension [place] TBIL is not recommended. Performed By: #### L 501.2450, L500.4050, L100.0100 ####[facility] [address] [place], [address] BUN/CRE 14.7 RATIO Normal 10-20 [facility] Comment on above: Performed By: #### L 501.2450, L500.4050, L100.0100 ####[facility] [address] [place], [address] CA,Total 9.3 mg/dL Normal 8.5-10.1 [facility] Comment on above: Performed By: #### L 501.2450, L500.4050, L100.0100 ####[facility] [address] [place], [address] Chloride [Moles/Vol] 102 mmol/L Normal 98-107 [facility] Comment on above: Performed By: #### L 501.2450, L500.4050, L100.0100 ####[facility] [address] [place], [address] CO2 [Moles/Vol] 29.0 mmol/L Normal 21.0-32.0 [facility] Comment on above: Performed By: #### L 501.2450, L500.4050, L100.0100 ####[facility] [address] [place], [address] Creatinine [Mass/Vol] 1.09 mg/dL High 0.55-1.02 [facility] Comment on above: Result Comment: The validity of the calculated GFR GFRAA in patients over70 years has not been determined. Clinical correlation isessential. Performed By: #### L 501.2450, L500.4050, L100.0100 ####[facility] [address] [place], [address] ECRCL 69.87 ml/min Normal [facility] Comment on above: Performed By: #### L 501.2450, L500.4050, L100.0100 ####[facility] [address] [place], [address] EST GFR - AA 70 mL/min Normal >60 [facility] Comment on above: Result Comment: Afri can [place] GFR Calc Performed By: #### L 501.2450, L500.4050, L100.0100 ####[facility] [address] [place], [address] GAP 5 Normal 5-15 [facility] Comment on above: Performed By: #### L 501.2450, L500.4050, L100.0100 ####[facility] [address] [place], [address] GFR/1.73 sq M.predicted among non-blacks MDRD (S/P/Bld) [Vol rate/Area] 58 mL/min/{1.73_m2} Low >60 [facility] Comment on above: Result Comment: Non- GFR Calc Performed By: #### L 501.2450, L500.4050, L100.0100 ####[facility] [address] [place], [address] Globulin (S) [Mass/Vol] 4.1 g/dL Normal 2.2-4.2 [facility] Comment on above: Performed By: #### L 501.2450, L500.4050, L100.0100 ####[facility] [address] [place], [address] Glucose [Mass/Vol] 107 mg/dL High 74-106 [facility] Comment on above: Result Comment: Fast ing Glucose result from 100 to 125 mg/dLsuggests IMPAIRED HOMEOSTASIS per A.D.A. criteria. Performed By: #### L 501.2450, L500.4050, L100.0100 ####[facility] [address] [place], [address] Potassium [Moles/Vol] 4.0 mmol/L Normal 3.5-5.1 [facility] Comment on above: Result Comment: Mode rate Hemolysis, Result may be falsely increased. Performed By: #### L 501.2450, L500.4050, L100.0100 ####[facility] [address] [place], [address] Sodium [Moles/Vol] 136 mmol/L Normal 136-145 [facility] Comment on above: Performed By: #### L 501.2450, L500.4050, L100.0100 ####[facility] [address] [place], [address] T PROT 8.0 g/dL Normal 6.4-8.2 [facility] Comment on above: Performed By: #### L 501.2450, L500.4050, L100.0100 ####[facility] [address] [place], [address] Urea nitrogen [Mass/Vol] 16 mg/dL Normal 7-18 [facility] Comment on above: Performed By: #### L 501.2450, L500.4050, L100.0100 ####[facility] [address] [place], [address] Emergency Department Summary on 02-24-2024 Emergency Department Summary Normal [facility] Lipaseon 02-24-2024 Lipase [Catalytic activity/Vol] 58 U/L Normal 13-75 [facility] Comment on above: Result Comment: Jay mortensen note:LIPASE revised reference range effective 22.New Lipase methodology. Expected to produce lower valuesthan the previous assay method.NEW Reference Range: 13 - 75 U/L Performed By: #### L 501.2450, L500.4050, L100.0100 ####[facility] [address] [place], [address] Oncology Visit Reporton 02-12 Oncology Visit Report Normal [facility] Partial Thromboplast Timeon 02-23-2024 aPTT Coag (Bld) [Time] 28.9 s Normal 24.1-36.2 [facility] Comment on above: Performed By: #### L 300.4310, L300.3900, L801.1541 ####[facility] [address] [place], [address] Prothrombin Time w/INRon INR Coag (PPP) [Relative time] 1.0 {INR} Normal [facility] Comment on above: Performed By: #### L 300.4310, L300.3900, L801.1541 ####[facility] [address] [place], [address] PT Coag (PPP) [Time] 13.2 s Normal 11.7-14.9 [facility] Comment on above: Performed By: #### L 300.4310, L300.3900, L801.1541 ####[facility] [address] [place], [address] C-REACTIVE PROTEINon 024 CRP 0.65 mg/dl Normal 0.00 - 0.90 [facility] Comment on above: Performed By: #### 2 89553 ####[facility],[address] [place] [address] 65584 CBC + DIFFon 02-18-2024 Baso # 0.02 x10EE3/UL Normal 0.00 - 0.10 [facility] Comment on above: Performed By: #### 2 40475 ####[facility],[address] [place], [place] [address] Basophils/100 WBC (Bld) 0.2 % Normal 0.0 - 2.0 [facility] Comment on above: Performed By: #### 2 38547 ####[facility],[address] [place] [address] CBC + DIFF Normal [facility] Comment on above: Result Comment: CBC- COMPLETE BLOOD COUNT Performed By: #### 2 24917 ####[facility],[address] [place] [address] EO # 0.35 x10EE3/UL Normal 0.00 - 0.50 [facility] Comment on above: Performed By: #### 2 10971 ####[facility],[address] [place] [address] Eosinophils/100 WBC (Bld) 3.3 % Normal 0.0 - 7.0 [facility] Comment on above: Performed By: #### 2 95636 ####[facility],[address] [place] [address] Erythrocyte distribution width (RBC) [Ratio] 12.9 % Normal 12.0 - 15.6 [facility] Comment on above: Performed By: #### 2 50332 ####[facility],[address] [place] [address] Hematocrit (Bld) [Volume fraction] 36.6 % Normal 34.0 - 46.0 [facility] Comment on above: Performed By: #### 2 62701 ####[facility],[address] [place] [address] Hemoglobin (Bld) [Mass/Vol] 12.7 g/dL Normal 12.0 - 16.0 [facility] Comment on above: Performed By: #### 2 06424 ####[facility],[address] [place] [address] Lymph # 3.71 x10EE3/UL High 0.80 - 2.80 [facility] Comment on above: Performed By: #### 2 20786 ####[facility],[address] [place], [place] [address] Lymphocytes/100 WBC (Bld) 35.4 % Normal 20.0 - 45.0 [facility] Comment on above: Performed By: #### 2 08055 ####[facility],[address] [place] [address] MANUAL DIFF N/A Normal [facility] Comment on above: Performed By: #### 2 43547 ####[facility],[address] [place] [address] MCH (RBC) [Entitic mass] 31 pg Normal 27 - 33 [facility] Comment on above: Performed By: #### 2 14935 ####[facility],[address] [place] [address] MCHC 35 X10 3 Normal 32 - 36 [facility] Comment on above: Performed By: #### 2 63278 ####[facility],[address] [place] [address] MCV (RBC) [Entitic vol] 90 fL Normal 80 - 99 [facility] Comment on above: Performed By: #### 2 26135 ####[facility],[address] [place] [address] [place] # 0.56 x10EE3/UL Normal 0.20 - 1.00 [facility] Comment on above: Performed By: #### 2 78975 ####[facility],[address] [place] [address] MONOS % 5.4 % Normal 0.0 - 10.0 [facility] Comment on above: Performed By: #### 2 70541 ####[facility],[address] [place], [place] [address] Morphology Adrian (Bld) [Interp] N/A Normal [facility] Comment on above: Performed By: #### 2 81605 ####[facility],[address] [place] [address]1083 Neut # 5.83 x10EE3/UL Normal 1.50 - 7.10 [facility] Comment on above: Performed By: #### 2 56846 ####[facility],[address] [place] [address] 77038 Neutrophils/100 WBC (Bld) 55.7 % Normal 46.0 - 76.0 [facility] Comment on above: Performed By: #### 2 01772 ####[facility],[address] [place] [address] 744[address] PLATELET 240 x10EE3/UL Normal 150 - 450 [facility] Comment on above: Performed By: #### 2 74994 ####[facility],[address] [place] [address]8793 Platelet mean volume (Bld) [Entitic vol] 8.9 fL Normal 6.6 - 10.5 [facility] Comment on above: Result Comment: AUTO MATED DIFFERENTIAL Performed By: #### 2 02317 ####[facility],[address] [place] [address] 43900 RBC 4.07 x 10EE6/UL Low 4.10 - 5.30 [facility] Comment on above: Performed By: #### 2 49640 ####[facility],[address] [place] [address] 88170 WBC 10.5 x 10EE3/UL Normal 4.5 - 10.8 [facility] Comment on above: Performed By: #### 2 57592 ####[facility],[address] [place] [address] 70693 CMP with eGFRon 02-18-2024 AGE 43 years Normal [facility] Comment on above: Performed By: #### 2 02882 ####[facility],[address] [place] [address] 26961 Albumin [Mass/Vol] 3.7 g/dL Normal 3.4 - 5.0 [facility] Comment on above: Performed By: #### 2 09748 ####[facility],[address] [place] [address] 86538 Albumin/Globulin [Mass ratio] 0.9 {ratio} Normal 0.9 - 1.6 [facility] Comment on above: Performed By: #### 2 72739 ####[facility],[address] [place] [address] 62655 ALK PHOS 112 U/L Normal 46 - 116 [facility] Comment on above: Performed By: #### 2 72644 ####[facility],[address] [place] [address] 30519 ALT [Catalytic activity/Vol] 22 U/L Normal 16 - 63 [facility] Comment on above: Performed By: #### 2 51746 ####[facility],[address] [place] [address] 51047 Anion gap [Moles/Vol] 12 mmol/L Normal 10 - 20 [facility] Comment on above: Performed By: #### 2 95609 ####[facility],[address] [place] [address] 13061 AST [Catalytic activity/Vol] 30 U/L Normal 13 - 39 [facility] Comment on above: Performed By: #### 2 92928 ####[facility],[address] [place] [address] 13250 B/C RATIO 19 ratio Normal 0 - 30 [facility] Comment on above: Performed By: #### 2 25460 ####[facility],[address] [place] [address] 17660 Bilirubin [Mass/Vol] 0.6 mg/dL Normal 0.2 - 1.0 [facility] Comment on above: Performed By: #### 2 88957 ####[facility],[address] [place] [address] 76149 Calcium [Mass/Vol] 8.7 mg/dL Normal 8.5 - 10.1 [facility] Comment on above: Performed By: #### 2 42340 ####[facility],[address] [place] [address] 63472 Chloride [Moles/Vol] 98 mmol/L Normal 98 - 107 [facility] Comment on above: Performed By: #### 2 27379 ####[facility],[address] [place] [address] 52584 CMP with eGFR Normal [facility] Comment on above: Result Comment: COMP REHENSIVE METABOLIC PANEL Performed By: #### 2 00931 ####[facility],[address] [place] [address] 01686 CO2 [Moles/Vol] 26.8 mmol/L Normal 21.0 - 32.0 [facility] Comment on above: Performed By: #### 2 41768 ####[facility],[address] [place] [address] 94891 Creatinine [Mass/Vol] 0.97 mg/dL Normal 0.55 - 1.02 [facility] Comment on above: Performed By: #### 2 10580 ####[facility],[address] [place] [address] 25803 GFR/1.73 sq M.predicted among non-blacks MDRD (S/P/Bld) [Vol rate/Area] mL/min/{1.73_m2} Normal 60 - 999 [facility] Comment on above: Performed By: #### 2 53906 ####[facility],[address] [place] [address] 95769 Result Comment: ACCO RDING TO THE NATIONAL KIDNEY DISEASE EDUCATION PROGRAM(NKDE), A NORMAL eGFRIS A VALUE GREATER THAN OR EQUAL TO 60 ML/MIN/1.73 SQ METERS.CHRONIC KIDNEY DISEASE: <60mL/MIN/1.73 SQ METERSKIDNEY FAILURE: <15mL/MIN/1.73 SQ METERSTHIS TEST SHOULD ONLY BE USED FOR PATIENTS 18 YEARS OF AGE AND OLDER. Globulin (S) [Mass/Vol] 4.0 g/dL High 1.5 - 3.8 [facility] Comment on above: Performed By: #### 2 15965 ####[facility],[address] [place] [address] 67770 Glucose [Mass/Vol] 80 mg/dL Normal 74 - 106 [facility] Comment on above: Performed By: #### 2 63697 ####[facility],[address] [place] [address] Potassium [Moles/Vol] 5.6 mmol/L High 3.5 - 5.1 [facility] Comment on above: Performed By: #### 2 44247 ####[place] [address] Protein [Mass/Vol] 7.7 g/dL Normal 6.4 - 8.2 [facility] Comment on above: Performed By: #### 2 67893 ####[place] [address] Sodium [Moles/Vol] 131 mmol/L Low 136 - 145 [facility] Comment on above: Performed By: #### 2 89483 ####[place] [id number] Urea nitrogen [Mass/Vol] 18 mg/dL Normal 7 - 18 [facility] Comment on above: Performed By: #### 2 66308 ####[place] [id number] CT ABDOMEN/PELVIS Won 2023 CT ABDOMEN/PELVIS W Normal [facility] LIPASEon 02-18-2024 Lipase [Catalytic activity/Vol] 71.0 U/L Normal 15.0 - 78.0 [facility] Comment on above: Result Comment: *PLE ASE NOTE THAT RANGES FOR LIPASE HAVE CHANGED OF 09/11/23 DUE TO AN ASSAYUPDATE BY THE ELECTRONICS REPAIR TECHNICIAN.THE NEW ASSAY RANGE IS 6-250 U/L, WITH A REFERENCERANGE OF 16-77 U/L. Performed By: #### 2 47826 ####[facility],[address] [place] [address] 13705 TROPONIN I, HIGH SENSITIVITY on 02-18-2024 HS TROPONIN 4.8 pg/mL Normal 0.0 - 51.4 [facility] Comment on above: Performed By: #### 2 97506 ####[facility],[address] [place] [address] 55433 URINALYSISon 02-18-2024 Bilirubin Ql (U) Negative Normal NORMAL: NEGATIVE [facility] Comment on above: Performed By: #### 2 32423 ####[facility],[address] [place] [address] 64273 Clarity (U) clear Normal NORMAL: CLEAR [facility] Comment on above: Performed By: #### 2 04909 ####[facility],[address] [place] [address] 98291 Color (U) yellow Normal NORMAL: YELLOW [facility] Comment on above: Performed By: #### 2 85605 ####[facility],[address] [place] [address] 35687 Glucose Ql (U) NORM Normal NORMAL: NORMAL [facility] Comment on above: Performed By: #### 2 [id number] ####[facility],[address] [place] [address] Hemoglobin Ql (U) Negative Normal NORMAL: NEGATIVE [facility] Comment on above: Performed By: #### 2 [id number] ####[facility],[address] [place] [address] Ketone Negative Normal NORMAL: NEGATIVE [facility] Comment on above: Performed By: #### 2 [id number] ####[facility],[address] [place] [address] Leukocytes Negative Normal NORMAL: NEGATIVE [facility] Comment on above: Performed By: #### 2 [id number] ####[facility],[address] [place] [address] Nitrite Ql (U) Negative Normal NORMAL: NEGATIVE [facility] Comment on above: Performed By: #### 2 [id number] ####[facility],[address] [place] [address] pH (U) 6.5 [pH] Normal NORMAL: 5.0-8.0 [facility] Comment on above: Performed By: #### 2 [id number] ####[facility],[address] [place] [address] Protein Ql (U) Negative Normal NORMAL: NEGATIVE [facility] Comment on above: Performed By: #### 2 [id number] ####[facility],[address] [place] [address] Sp [place] 1.015 Normal NORMAL: 1.010-1.030 [facility] Comment on above: Performed By: #### 2 14251 ####[facility],[address] [place] [address] Specimen Type Clean catch Normal [facility] Comment on above: Performed By: #### 2 [id number] ####[facility],[address] [place], [place] [id number] Urinalysis dipstick W Reflex Microscopic panel (U) NOT INDICATED Normal [facility] Comment on above: Performed By: #### 2 [id number] ####[facility],[address] [place], [place] [id number] Urobilinog NORM Normal NORMAL: NORMAL [facility] Comment on above: Performed By: #### 2 [id number] ####[facility],[address] [place], [place] [id number] Emergency Department Summary on 02-17-2024 Emergency Department Summary Normal [facility] Tibia Fibula 2 Viewson 02-16 Tibia Fibula 2 Views Normal [facility] Venous Duplex US, Unilateral on 02-17-2024 Venous Duplex US, Unilateral Normal [facility] .Auto Diffon 02-04-2024 Basophil, Absolute 0.1 10 3/mcL Normal 0.0-0.2 [facility] ([place]) Comment on above: Performed By: #### U AMIC, UA #### [address] [address] Basophils/100 WBC (Bld) 1.4 % Normal 0.0-2.5 [facility] ([place]) Comment on above: Performed By: #### U AMIC, UA #### [address] [address] Eosinophil, Absolute 0.1 10 3/mcL Normal 0.0-0.4 [facility] ([place]) Comment on above: Performed By: #### U AMIC, UA #### [address] [address] Eosinophils/100 WBC (Bld) 1.7 % Normal 0.0-7.0 [facility] ([place]) Comment on above: Performed By: #### U AMIC, UA #### [address] [address] Lymphocyte, Absolute 2.9 10 3/mcL Normal 0.8-3.9 [facility] ([place]) Comment on above: Performed By: #### U AMIC, UA #### [address] [address] Lymphocytes/100 WBC (Bld) 36.1 % Normal 10.0-50.0 [facility] ([place]) Comment on above: Performed By: #### U AMIC, UA #### [address] [address] Monocyte, Absolute 0.5 10 3/mcL Normal 0.2-1.0 [facility] ([place]) Comment on above: Performed By: #### U AMIC, UA #### [address] [address] Monocytes/100 WBC (Bld) 6.2 % Normal 1.7-13.0 [facility] ([place]) Comment on above: Performed By: #### U AMIC, UA #### [address] [address] Neutrophils/100 WBC (Bld) 54.6 % Normal 37.0-80.0 [facility] ([place]) Comment on above: Performed By: #### U AMIC, UA #### [address] [address] .GFRon 02-04-2024 GFR 65 ml/min/1.73sqm Normal [facility] ([place]) Comment on above: Result Comment: GFR Population mean for , Non- Americans Ages 20-29 = 116 mL/min/1.73 sq.m. Ages 30-39 = 107 mL/min/1.73 sq.m. Ages 40-49 = 99 mL/min/1.73 sq.m. Ages 50-59 = 93 mL/min/1.73 sq.m. Ages 60-69 = 85 mL/min/1.73 sq.m. Ages 70+ = 75 mL/min/1.73 sq.m. Chronic Kidney Disease: Less than 60 mL/min/1.73 square meters End Stage Renal Disease: Less than 15 mL/min/1.73 square meters Performed By: #### U AMIC, UA #### [place] [address] GFR Non- 54 ml/min/1.73sqm Normal [facility] ([place]) Comment on above: Result Comment: GFR Population mean for , Non- Americans Ages 20-29 = 116 mL/min/1.73 sq.m. Ages 30-39 = 107 mL/min/1.73 sq.m. Ages 40-49 = 99 mL/min/1.73 sq.m. Ages 50-59 = 93 mL/min/1.73 sq.m. Ages 60-69 = 85 mL/min/1.73 sq.m. Ages 70+ = 75 mL/min/1.73 sq.m. Chronic Kidney Disease: Less than 60 mL/min/1.73 square meters End Stage Renal Disease: Less than 15 mL/min/1.73 square meters Performed By: #### U AMIC, UA #### [address] [address] .MDWon 02-04-2024 Monocyte Distribution Width 16.55 Normal 0.00-20.00 [facility] ([place]) Comment on above: Result Comment: For ED adult patients suspected of sepsis, MDW<=20.0 does not rule out sepsis or risk of sepsis Performed By: #### U AMIC, UA #### [address] [address] .NEUABSon 02-04-2024 Neutrophil, Absolute 4.4 10 3/mcL Normal 2.9-6.2 [facility] ([place]) Comment on above: Performed By: #### U AMIC, UA #### [place] [address] .Urinalysis Microscopic (AO) on 02-04-2024 UA Bacteria Trace Abnormal [facility] ([place]) Comment on above: Performed By: #### U A, UAMICAO ####[address] [place], [place] [address] UA RBC 0-5 Abnormal None Seen [facility] ([place]) Comment on above: Performed By: #### U A, UAMICAO ####[address] [place], [place] [address] UA Squam Epithelial 15-25 Abnormal None Seen [facility] ([place]) Comment on above: Performed By: #### U A, UAMICAO ####[address] [place], [place] [address] UA WBC None Seen Normal None Seen [facility] ([place]) Comment on above: Performed By: #### U A, UAMICAO ####[address] [place], [place] [address] BMPon 02-04-2024 BUN/Creatinine Ratio 13 ratio Normal 7-27 [facility] ([place]) Comment on above: Performed By: #### U AMIC, UA #### [address] [address] Calcium [Mass/Vol] 9.5 mg/dL Normal 8.4-10.2 [facility] ([place]) Comment on above: Performed By: #### U AMIC, UA #### [place] [address] Chloride [Moles/Vol] 102 mmol/L Normal 98-107 [facility] ([place]) Comment on above: Performed By: #### U AMIC, UA #### [address] [address] CO2 [Moles/Vol] 26 mmol/L Normal 22-29 [facility] ([place]) Comment on above: Performed By: #### U AMIC, UA #### [address] [address] Creatinine [Mass/Vol] 1.10 mg/dL High 0.55-1.02 [facility] ([place]) Comment on above: Performed By: #### U AMIC, UA #### [address] [address] Electrolyte Balance 11.0 mEq/L Normal 4.0-15.0 [facility] ([place]) Comment on above: Performed By: #### U AMIC, UA #### [address] [address] Glucose [Mass/Vol] 106 mg/dL High 70-105 [facility] ([place]) Comment on above: Performed By: #### U AMIC, UA #### [address] [address] Potassium [Moles/Vol] 3.9 mmol/L Normal 3.5-5.1 [facility] ([place]) Comment on above: Performed By: #### U AMIC, UA #### [address] [address] Sodium [Moles/Vol] 139 mmol/L Normal 136-145 [facility] ([place]) Comment on above: Performed By: #### U AMIC, UA #### [address] [address] Urea nitrogen [Mass/Vol] 14 mg/dL Normal 7-18 [facility] ([place]) Comment on above: Performed By: #### U AMIC, UA #### [address] [address] CBCon 02-04-2024 Erythrocyte distribution width (RBC) [Ratio] 13.0 % Normal 11.5-14.5 [facility] ([place]) Comment on above: Performed By: #### U AMIC, UA #### [address] [address] Hematocrit (Bld) [Volume fraction] 37.0 % Normal 37.0-47.0 [facility] ([place]) Comment on above: Performed By: #### U AMIC, UA #### [address] [address] Hgb 13.1 G/dL Normal 12.0-16.0 [facility] ([place]) Comment on above: Performed By: #### U AMIC, UA #### [address] [address] MCH (RBC) [Entitic mass] 30.7 pg Normal 27.0-31.2 [facility] ([place]) Comment on above: Performed By: #### U AMIC, UA #### [place] [address] MCHC 35.3 G/dL Normal 33.0-37.0 [facility] ([place]) Comment on above: Performed By: #### U AMIC, UA #### [place] [id number] MCV (RBC) [Entitic vol] 86.8 fL Normal 80.0-94.0 [facility] ([place]) Comment on above: Performed By: #### U AMIC, UA #### [place] [id number] Platelet 230 10 3/mcL Normal 130-400 [facility] ([place]) Comment on above: Performed By: #### U AMIC, UA #### [address] [address] Platelet mean volume (Bld) [Entitic vol] 8.9 fL Normal 7.4-10.4 [facility] ([place]) Comment on above: Performed By: #### U AMIC, UA #### [place] [id number] RBC 4.27 10 6/mcL Normal 4.20-5.40 [facility] ([place]) Comment on above: Performed By: #### U AMIC, UA #### [facility] [address] [place] [address] WBC 8.1 10 3/mcL Normal 4.6-10.8 [facility] ([place]) Comment on above: Performed By: #### U [facility] #### [facility] [address] [place] [address] ABDOMEN/PELVIS W/O CONTRA STon 02-04-2024 CT ABDOMEN/PELVIS W/O CONTRAST ORIGINAL EXAMINATION: CT OF THE ABDOMEN AND PELVIS WITHOUT CONTRAST02/04/2024 5:51 pm TECHNIQUE: CT of the abdomen and pelvis was performed without the administration of intravenous contrast. Multiplanar reformatted images are provided for review. Automated exposure control, iterative reconstruction, and/or weight based adjustment of the mA/kV was utilized to reduce the radiation dose to as low as reasonably achievable. COMPARISON: CT abdomen/pelvis 02/26/2023 HISTORY: ORDERING SYSTEM PROVIDED HISTORY: Reason for Exam: abdominal pain. Right flank pain with nausea and vomiting. Burning with urination, history of stones. FINDINGS: Visualized lower thorax is unremarkable. Numerous hepatic cysts. The pancreas, spleen, and adrenal glands are unremarkable. Cholecystectomy. The right kidney and. Are unremarkable. Multiple nonobstructive left renal calculi. The urinary bladder is unremarkable. Hysterectomy. No free pelvic fluid. No pathologically enlarged pelvic or inguinal lymph nodes. The large and small bowel are normal in caliber. No pericecal inflammation. No free intraperitoneal air. No pathologically enlarged abdominal lymph nodes. The abdominal aorta is normal in caliber. Minor multilevel degenerative changes of the spine. No acute osseous findings. IMPRESSION: Nonobstructive left renal nephrolithiasis. I have personally reviewed the images of this examination and agree with the resident's findings and interpretation. Interpreted by: Flex Fishman Preliminary Report By: Jonathan Mendes Electronically signed By Flex Fishman Dictated Date: 02/04/2024 5:52:42 PM Prelim Date: 02/04/2024 6:11:16 PM Sign Date: 02/04/2024 6:11:16 PM Ordering Provider: ETHAN Guardado [facility] ([place]) LABORATORYOrdered By: Eduar ruffin on 02-04-2024 Appearance (U) Cloudy *ABN* (02/04/24 5:01 PM) Invalid Interpretation Code Clear AO Auto Urine SS Bacteria LM.HPF (Urine sed) [#/Area] Trace /HPF Invalid Interpretation Code AO Auto Urine SS Bilirubin Ql (U) Negative (02/04/24 5:01 PM) Normal Negative AO Auto Urine SS Color (U) Yellow (02/04/24 5:01 PM) Normal AO Auto Urine SS Glucose Test strip (U) [Mass/Vol] Negative Normal Negative AO Auto Urine SS Hemoglobin Auto test strip (U) [Mass/Vol] Trace *ABN* (02/04/24 5:01 PM) Invalid Interpretation Code Negative AO Auto Urine SS Ketones Ql (U) Negative Normal Negative AO Auto Urine SS UA Leuk Est Negative (02/04/24 5:01 PM) Normal Negative AO Auto Urine SS UA Nitrite Negative (02/04/24 5:01 PM) Normal Negative AO Auto Urine SS UA pH 5.5 (02/04/24 5:01 PM) Normal 5.0 - 8.0 AO Auto Urine SS UA Protein Trace mg/dL Normal Negative AO Auto Urine SS UA RBC 0-5 /HPF Invalid Interpretation Code None Seen AO Auto Urine SS UA Spec Grav >=1.030 *ABN* (02/04/24 5:01 PM) Invalid Interpretation Code 1.015-1.025 AO Auto Urine SS UA Specimen Type Clean Catch (02/04/24 5:01 PM) Normal AO Auto Urine SS UA Squam Epithelial 15-25 /HPF Invalid Interpretation Code None Seen AO Auto Urine SS UA Urobilinogen 0.2 E.U./dL Normal 0.2-1.0 AO Auto Urine SS WBC LM.HPF (Urine sed) [#/Area] None Seen /HPF Normal None Seen AO Auto Urine SS LABORATORYOrdered By: SYSTEM SYSTEM on 02-04-2024 Basophil, Absolute 0.1 103/mcL Normal 0.0 - 0.2 10^3/mcL AO Workflow SS Basophils/100 WBC (Bld) 1.4 % Normal 0.0 - 2.5 % AO Workflow SS Calcium [Mass/Vol] 9.5 mg/dL Normal 8.4 - 10. 2 mg/dL AO ADM SS Chloride [Moles/Vol] 102 mmol/L Normal 98 - 10 7 mmol/L AO ADM SS CO2 [Moles/Vol] 26 mmol/L Normal 22 - 29 mmol/L AO ADM SS Creatinine [Mass/Vol] 1.10 mg/dL High 0.55 - 1.02 mg/dL AO ADM SS Electrolyte Balance 11.0 mEq/L Normal 4.0 - 15 .0 mEq/L AO ADM SS Eosinophil, Absolute 0.1 103/mcL Normal 0.0 - 0 .4 10^3/mcL AO Workflow SS Eosinophils/100 WBC (Bld) 1.7 % Normal 0.0 - 7.0 % AO Workflow SS Erythrocyte distribution width (RBC) [Ratio] 13.0 % Normal 11.5 - 14.5 % AO Workflow SS GFR/1.73 sq M.predicted among blacks MDRD (S/P/Bld) [Vol rate/Area] 65 ml/min/1.73sqm Invalid Interpretation Code AO Chemistry S Comment on above: Interpretive Data: GFR Population mean for , Non- Americans Ages 20-29 = 116 mL/min/1.73 sq.m. Ages 30-39 = 107 mL/min/1.73 sq.m. Ages 40-49 = 99 mL/min/1.73 sq.m. Ages 50-59 = 93 mL/min/1.73 sq.m. Ages 60-69 = 85 mL/min/1.73 sq.m. Ages 70+ = 75 mL/min/1.73 sq.m. Chronic Kidney Disease: Less than 60 mL/min/1.73 square meters End Stage Renal Disease: Less than 15 mL/min/1.73 square meters GFR/1.73 sq M.predicted among non-blacks MDRD (S/P/Bld) [Vol rate/Area] 54 ml/min/1.73sqm Invalid Interpretation Code AO Chemistry S Comment on above: Interpretive Data: GFR Population mean for , Non- Americans Ages 20-29 = 116 mL/min/1.73 sq.m. Ages 30-39 = 107 mL/min/1.73 sq.m. Ages 40-49 = 99 mL/min/1.73 sq.m. Ages 50-59 = 93 mL/min/1.73 sq.m. Ages 60-69 = 85 mL/min/1.73 sq.m. Ages 70+ = 75 mL/min/1.73 sq.m. Chronic Kidney Disease: Less than 60 mL/min/1.73 square meters End Stage Renal Disease: Less than 15 mL/min/1.73 square meters Glucose [Mass/Vol] 106 mg/dL High 70 - 105 mg/dL AO ADM SS Hematocrit (Bld) [Volume fraction] 37.0 % Normal 37.0 - 47.0 % AO Workflow SS Hemoglobin (Bld) [Mass/Vol] 13.1 G/dL Normal 12.0 - 16.0 G/dL AO Workflow SS Lymphocyte, Absolute 2.9 103/mcL Normal 0.8 - 3 .9 10^3/mcL AO Workflow SS Lymphocytes/100 WBC (Bld) 36.1 % Normal 10.0 - 50.0 % AO Workflow SS MCH (RBC) [Entitic mass] 30.7 pg Normal 27.0 - 31.2 pg AO Workflow SS MCHC 35.3 G/dL Normal 33.0 - 37.0 G/dL AO Workflow SS MCV (RBC) [Entitic vol] 86.8 fL Normal 80.0 - 94.0 fL AO Workflow SS Monocyte distribution width Auto (Bld) [Entitic vol] 16.55 1 Normal 0.00 - 20.00 AO Workflow SS Comment on above: Result Comment: For ED adult patients suspected of sepsis, MDW<=20.0 does not rule out sepsis or risk of sepsis Monocyte, Absolute 0.5 103/mcL Normal 0.2 - 1.0 10^3/mcL AO Workflow SS Monocytes/100 WBC (Bld) 6.2 % Normal 1.7 - 13.0 % AO Workflow SS Neutrophil, Absolute 4.4 103/mcL Normal 2.9 - 6 .2 10^3/mcL AO Workflow SS Neutrophils/100 WBC (Bld) 54.6 % Normal 37.0 - 80.0 % AO Workflow SS Platelet mean volume (Bld) [Entitic vol] 8.9 fL Normal 7.4 - 10.4 fL AO Workflow SS Platelets (Bld) [#/Vol] 230 103/mcL Normal 130 - 400 10^3/mcL AO Workflow SS Potassium [Moles/Vol] 3.9 mmol/L Normal 3.5 - 5.1 mmol/L AO ADM SS RBC (Bld) [#/Vol] 4.27 106/mcL Normal 4.20 - 5.4 0 10^6/mcL AO Workflow SS Sodium [Moles/Vol] 139 mmol/L Normal 136 - 145 mmol/L AO ADM SS Urea nitrogen [Mass/Vol] 14 mg/dL Normal 7 - 18 mg/dL AO ADM SS Urea nitrogen/Creatinine [Mass ratio] 13 ratio Normal 7 - 27 ratio AO ADM SS WBC (Bld) [#/Vol] 8.1 103/mcL Normal 4.6 - 10.8 10^3/mcL AO Workflow SS UAon 02-04-2024 Color (U) Yellow Normal [facility] ([place]) Comment on above: Performed By: #### E SR #### [place] [address] Glucose (U) [Mass/Vol] Negative Normal Negative [facility] ([place]) Comment on above: Performed By: #### E SR #### [place] [id number] Ketones Ql (U) Negative Normal Negative [facility] ([place]) Comment on above: Performed By: #### E SR #### [place] [address] UA Appear Cloudy Abnormal Clear [facility] ([place]) Comment on above: Performed By: #### E SR #### [address] [address] UA Blood Trace Abnormal Negative [facility] ([place]) Comment on above: Performed By: #### E SR #### [place] [id number] UA Leuk Est Negative Normal Negative [facility] ([place]) Comment on above: Performed By: #### E SR #### [address] [address] UA Nitrite Negative Normal Negative [facility] ([place]) Comment on above: Performed By: #### E SR #### [address] [address] UA pH 5.5 Normal 5.0 - 8.0 [facility] ([place]) Comment on above: Performed By: #### E SR #### [address] [address] UA Protein Trace Normal Negative [facility] ([place]) Comment on above: Performed By: #### E SR #### [address] [address] UA Spec Grav >=1.030 Abnormal 1.015-1.025 [facility] ([place]) Comment on above: Performed By: #### E SR #### [place] [address] UA Specimen Type Clean Catch Normal [facility] ([place]) Comment on above: Performed By: #### E SR #### [place] [address] UA Urobilinogen 0.2 E.U./dL Normal 0.2-1.0 [facility] ([place]) Comment on above: Performed By: #### E SR #### [place] [address] Urobilinogen (U) [Mass/Vol] Negative Normal Negative [facility] ([place]) Comment on above: Performed By: #### E SR #### [place] [address] .Auto Diffon 01-31-2024 Basophil, Absolute 0.0 10 3/mcL Normal 0.0-0.2 [facility] ([place]) Comment on above: Performed By: #### B MP, GFR #### [place] [address] Basophils/100 WBC (Bld) 0.1 % Normal 0.0-2.5 A [facility] ([place]) Comment on above: Performed By: #### B MP, GFR #### [address] [address] Eosinophil, Absolute 0.0 10 3/mcL Normal 0.0-0.4 [facility] ([place]) Comment on above: Performed By: #### B MP, GFR #### [address] [address] Eosinophils/100 WBC (Bld) 0.9 % Normal 0.0-7.0 [facility] ([place]) Comment on above: Performed By: #### B MP, GFR #### [place] [id number] Lymphocyte, Absolute 2.3 10 3/mcL Normal 0.8-3.9 [facility] ([place]) Comment on above: Performed By: #### B MP, GFR #### [address] [address] Lymphocytes/100 WBC (Bld) 29.4 % Normal 10.0-50.0 [facility] ([place]) Comment on above: Performed By: #### B MP, GFR #### [address] [address] Monocyte, Absolute 0.5 10 3/mcL Normal 0.2-1.0 [facility] ([place]) Comment on above: Performed By: #### B MP, GFR #### [address] [address] Monocytes/100 WBC (Bld) 6.3 % Normal 1.7-13.0 [facility] ([place]) Comment on above: Performed By: #### B MP, GFR #### [address] [address] Neutrophils/100 WBC (Bld) 63.1 % Normal 37.0-80.0 [facility] ([place]) Comment on above: Performed By: #### B MP, GFR #### [address] [address] .GFRon 01-31-2024 GFR 66 ml/min/1.73sqm Normal [facility] ([place]) Comment on above: Result Comment: GFR Population mean for , Non- Americans Ages 20-29 = 116 mL/min/1.73 sq.m. Ages 30-39 = 107 mL/min/1.73 sq.m. Ages 40-49 = 99 mL/min/1.73 sq.m. Ages 50-59 = 93 mL/min/1.73 sq.m. Ages 60-69 = 85 mL/min/1.73 sq.m. Ages 70+ = 75 mL/min/1.73 sq.m. Chronic Kidney Disease: Less than 60 mL/min/1.73 square meters End Stage Renal Disease: Less than 15 mL/min/1.73 square meters Performed By: #### B MP, GFR #### [address] [address] GFR Non- 55 ml/min/1.73sqm Normal [facility] ([place]) Comment on above: Result Comment: GFR Population mean for , Non- Americans Ages 20-29 = 116 mL/min/1.73 sq.m. Ages 30-39 = 107 mL/min/1.73 sq.m. Ages 40-49 = 99 mL/min/1.73 sq.m. Ages 50-59 = 93 mL/min/1.73 sq.m. Ages 60-69 = 85 mL/min/1.73 sq.m. Ages 70+ = 75 mL/min/1.73 sq.m. Chronic Kidney Disease: Less than 60 mL/min/1.73 square meters End Stage Renal Disease: Less than 15 mL/min/1.73 square meters Performed By: #### B MP, GFR #### [place] [address] .MDWon 01-31-2024 Monocyte Distribution Width 19.92 Normal 0.00-20.00 [facility] ([place]) Comment on above: Result Comment: For ED adult patients suspected of sepsis, MDW<=20.0 does not rule out sepsis or risk of sepsis Performed By: #### B MP, GFR #### [place] [address] .NEUABSon 01-31-2024 Neutrophil, Absolute 5.1 10 3/mcL Normal 2.9-6.2 [facility] ([place]) Comment on above: Performed By: #### B MP, GFR #### [place] [address] .Urinalysis Microscopic (AO) on 01-31-2024 UA Bacteria Trace Abnormal [facility] ([place]) Comment on above: Performed By: #### B MP, GFR #### [place] [address] UA Mucous Trace Normal [facility] ([place]) Comment on above: Performed By: #### B MP, GFR #### [place] [address] UA RBC 0-5 Abnormal None Seen [facility] ([place]) Comment on above: Performed By: #### B MP, GFR #### [place] [address] UA Squam Epithelial 5-10 Abnormal None Seen [facility] ([place]) Comment on above: Performed By: #### B MP, GFR #### [place] [address] UA WBC 0-5 Abnormal None Seen [facility] ([place]) Comment on above: Performed By: #### B MP, GFR #### [place] [address] CBCon 01-31-2024 Erythrocyte distribution width (RBC) [Ratio] 12.5 % Normal 11.5-14.5 [facility] ([place]) Comment on above: Performed By: #### B MP, GFR #### [place] [address] Hematocrit (Bld) [Volume fraction] 37.6 % Normal 37.0-47.0 [facility] ([place] Comment on above: Performed By: #### B MP, GFR #### [place] [address] Hgb 13.3 G/dL Normal 12.0-16.0 [facility] ([place] Comment on above: Performed By: #### B MP, GFR #### [place] [address] MCH (RBC) [Entitic mass] 31.2 pg Normal 27.0-31.2 [facility] ([place] Comment on above: Performed By: #### B MP, GFR #### [place] [address] MCHC 35.4 G/dL Normal 33.0-37.0 [facility] ([place] Comment on above: Performed By: #### B MP, GFR #### [place] [address] MCV (RBC) [Entitic vol] 88.3 fL Normal 80.0-94.0 A [facility] ([place]) Comment on above: Performed By: #### B MP, GFR #### [address] [address] Platelet 239 10 3/mcL Normal 130-400 [facility] ([place]) Comment on above: Performed By: #### B MP, GFR #### [place] [id number] Platelet mean volume (Bld) [Entitic vol] 9.1 fL Normal 7.4-10.4 [facility] ([place]) Comment on above: Performed By: #### B MP, GFR #### [place] [address] RBC 4.26 10 6/mcL Normal 4.20-5.40 [facility] ([place]) Comment on above: Performed By: #### B MP, GFR #### [place] [id number] WBC 8.1 10 3/mcL Normal 4.6-10.8 [facility] ([place]) Comment on above: Performed By: #### B MP, GFR #### [place] [id number] CMPon 01-31-2024 Albumin Level 4.5 G/dL Normal 3.5-5.0 [facility] ([place]) Comment on above: Performed By: #### B MP, GFR #### [place] [address] Albumin/Globulin [Mass ratio] 1.2 {ratio} Normal 1.1-2.5 [facility] ([place]) Comment on above: Performed By: #### B MP, GFR #### [place] [id number] ALP [Catalytic activity/Vol] 114 U/L Normal 40-135 [facility] ([place]) Comment on above: Performed By: #### B MP, GFR #### [place] [id number] ALT [Catalytic activity/Vol] 27 U/L Normal 14-59 [facility] ([place]) Comment on above: Performed By: #### B MP, GFR #### [place] [id number] AST [Catalytic activity/Vol] 17 U/L Normal 10-40 [facility] ([place]) Comment on above: Performed By: #### B MP, GFR #### [address] [address] Bili Total 0.9 mg/dL Normal 0.2-1.0 [facility] ([place]) Comment on above: Result Comment: Use of this assay is not recommended for patients undergoing treatment with eltrombopag due to the potential for falsely elevated results. Performed By: #### B MP, GFR #### [place] [id number] BUN/Creatinine Ratio 14 ratio Normal 7-27 [facility] ([place]) Comment on above: Performed By: #### B MP, GFR #### [place] [id number] Calcium [Mass/Vol] 9.6 mg/dL Normal 8.4-10.2 [facility] ([place]) Comment on above: Performed By: #### B MP, GFR #### [place] [id number] Chloride [Moles/Vol] 100 mmol/L Normal 98-107 [facility] ([place]) Comment on above: Performed By: #### B MP, GFR #### [place] [id number] CO2 [Moles/Vol] 26 mmol/L Normal 22-29 [facility] ([place]) Comment on above: Performed By: #### B MP, GFR #### [place] [id number] Creatinine [Mass/Vol] 1.09 mg/dL High 0.55-1.02 [facility] ([place]) Comment on above: Performed By: #### B MP, GFR #### [place] [id number] Electrolyte Balance 11.0 mEq/L Normal 4.0-15.0 [facility] ([place]) Comment on above: Performed By: #### B MP, GFR #### [place] [id number] Globulin 3.7 G/dL Normal [facility] ([place]) Comment on above: Performed By: #### B MP, GFR #### [address] [address] Glucose [Mass/Vol] 110 mg/dL High 70-105 [facility] ([place]) Comment on above: Performed By: #### B MP, GFR #### [address] [address] Potassium [Moles/Vol] 4.3 mmol/L Normal 3.5-5.1 [facility] ([place]) Comment on above: Performed By: #### B MP, GFR #### [address] [address] Sodium [Moles/Vol] 137 mmol/L Normal 136-145 [facility] ([place]) Comment on above: Performed By: #### B MP, GFR #### [address] [address] Total Protein 8.2 G/dL Normal 6.4-8.2 [facility] ([place]) Comment on above: Performed By: #### B MP, GFR #### [address] [address] Urea nitrogen [Mass/Vol] 15 mg/dL Normal 7-18 [facility] ([place]) Comment on above: Performed By: #### B MP, GFR #### [address] [address] Calprotectin, Stoolon [address] 53 ug/g Normal 0-120 [facility] Comment on above: Result Comment: Conc entration Interpretation Follow-Up< 5 - 50 ug/g Normal None>50 -120 ug/g Borderline Re-evaluate in 4-6 weeks >120 ug/g Abnormal Repeat as clinically indicatedPerformed at: - Labco[address] [id number] Director: Jocelyn Ames MD, Phone: [phone] Performed By: #### M 100.637, M600.5000, M7400.3302, L7000.0750, L7000.0700 ####[facility] [address] [place], [place], [id number] LIPon 01-31-2024 Lipase Level 41 U/L Normal 16-77 [facility] ([place]) Comment on above: Performed By: #### B MP, GFR #### [address] [address] UAon 01-31-2024 Color (U) Yellow Normal [facility] ([place]) Comment on above: Performed By: #### U AMIC, UA #### [place] [address] Glucose (U) [Mass/Vol] Negative Normal Negative [facility] ([place]) Comment on above: Performed By: #### U AMIC, UA #### [place] [address] Ketones Ql (U) Negative Normal Negative [facility] ([place]) Comment on above: Performed By: #### U AMIC, UA #### [place] [address] UA Appear Slightly Cloudy Abnormal Clear [facility] ([place]) Comment on above: Performed By: #### U AMIC, UA #### [place] [address] UA Blood Trace Abnormal Negative [facility] ([place]) Comment on above: Performed By: #### U AMIC, UA #### [address] [address] UA Leuk Est Negative Normal Negative [facility] ([place]) Comment on above: Performed By: #### U AMIC, UA #### [place] [address] UA Nitrite Negative Normal Negative [facility] ([place]) Comment on above: Performed By: #### U AMIC, UA #### [place] [id number] UA pH 6.5 Normal 5.0 - 8.0 [facility] ([place]) Comment on above: Performed By: #### U AMIC, UA #### [place] [address] UA Protein Negative Normal Negative [facility] ([place]) Comment on above: Performed By: #### U AMIC, UA #### [facility] [address] [place] [address] UA Spec Grav 1.015 Normal 1.015-1.025 [facility] ([place]) Comment on above: Performed By: #### U AMIC, UA #### [facility] [address] [place] [address] UA Specimen Type Clean Catch Normal [facility] ([place]) Comment on above: Performed By: #### U AMIC, UA #### [facility] [address] [place] [address] UA Urobilinogen 0.2 E.U./dL Normal 0.2-1.0 [facility] ([place]) Comment on above: Performed By: #### U AMIC, UA #### [address] [address] Urobilinogen (U) [Mass/Vol] Negative Normal Negative [facility] ([place]) Comment on above: Performed By: #### U AMIC, UA #### [address] [address] L7000.0750on 01-30-2024 P ELASTASE,FECA 490 Normal >200 [facility] Comment on above: Result Comment: Resu lt Units: ug Elast./g Severe Pancreatic Insufficiency: <100 Moderate Pancreatic Insufficiency: 100 - 200 Normal: >200Performed at: - [facility] [id number] Director: Jocelyn Ames MD, Phone: [phone] Performed By: #### M 100.637, M600.5000, M7400.1992, L7000.0750, L7000.0700 ####[facility] [address] [place], [address] LABORATORYOrdered By: SYSTEM SYSTEM on 01-30-2024 Albumin BCP dye [Mass/Vol] 4.5 G/dL Normal 3.5 - 5.0 G/dL AO ADM SS Albumin/Globulin [Mass ratio] 1.2 {ratio} Normal 1.1 - 2.5 ratio AO ADM SS ALP [Catalytic activity/Vol] 114 U/L Normal 40 - 135 U/L AO ADM SS ALT With P-5'-P [Catalytic activity/Vol] 27 U/L Normal 14 - 59 U/L AO ADM SS AST With P-5'-P [Catalytic activity/Vol] 17 U/L Normal 10 - 40 U/L AO ADM SS Basophil, Absolute 0.0 103/mcL Normal 0.0 - 0.2 10^3/mcL AO Workflow SS Basophils/100 WBC (Bld) 0.1 % Normal 0.0 - 2.5 % AO Workflow SS Bilirubin [Mass/Vol] 0.9 mg/dL Normal 0.2 - 1 .0 mg/dL AO ADM SS Comment on above: Interpretive Data: U se of this assay is not recommended for patients undergoing treatment with eltrombopag due to the potential for falsely elevated results. Calcium [Mass/Vol] 9.6 mg/dL Normal 8.4 - 10. 2 mg/dL AO ADM SS Chloride [Moles/Vol] 100 mmol/L Normal 98 - 10 7 mmol/L AO ADM SS CO2 [Moles/Vol] 26 mmol/L Normal 22 - 29 mmol/L AO ADM SS Creatinine [Mass/Vol] 1.09 mg/dL High 0.55 - 1.02 mg/dL AO ADM SS Electrolyte Balance 11.0 mEq/L Normal 4.0 - 15 .0 mEq/L AO ADM SS Eosinophil, Absolute 0.0 103/mcL Normal 0.0 - 0 .4 10^3/mcL AO Workflow SS Eosinophils/100 WBC (Bld) 0.9 % Normal 0.0 - 7.0 % AO Workflow SS Erythrocyte distribution width (RBC) [Ratio] 12.5 % Normal 11.5 - 14.5 % AO Workflow SS GFR/1.73 sq M.predicted among blacks MDRD (S/P/Bld) [Vol rate/Area] 66 ml/min/1.73sqm Invalid Interpretation Code AO Chemistry S Comment on above: Interpretive Data: GFR Population mean for , Non- Americans Ages 20-29 = 116 mL/min/1.73 sq.m. Ages 30-39 = 107 mL/min/1.73 sq.m. Ages 40-49 = 99 mL/min/1.73 sq.m. Ages 50-59 = 93 mL/min/1.73 sq.m. Ages 60-69 = 85 mL/min/1.73 sq.m. Ages 70+ = 75 mL/min/1.73 sq.m. Chronic Kidney Disease: Less than 60 mL/min/1.73 square meters End Stage Renal Disease: Less than 15 mL/min/1.73 square meters GFR/1.73 sq M.predicted among non-blacks MDRD (S/P/Bld) [Vol rate/Area] 55 ml/min/1.73sqm Invalid Interpretation Code AO Chemistry S Comment on above: Interpretive Data: GFR Population mean for , Non- Americans Ages 20-29 = 116 mL/min/1.73 sq.m. Ages 30-39 = 107 mL/min/1.73 sq.m. Ages 40-49 = 99 mL/min/1.73 sq.m. Ages 50-59 = 93 mL/min/1.73 sq.m. Ages 60-69 = 85 mL/min/1.73 sq.m. Ages 70+ = 75 mL/min/1.73 sq.m. Chronic Kidney Disease: Less than 60 mL/min/1.73 square meters End Stage Renal Disease: Less than 15 mL/min/1.73 square meters Globulin 3.7 G/dL Invalid Interpretation Code AO ADM SS Glucose [Mass/Vol] 110 mg/dL High 70 - 105 mg/dL AO ADM SS Hematocrit (Bld) [Volume fraction] 37.6 % Normal 37.0 - 47.0 % AO Workflow SS Hemoglobin (Bld) [Mass/Vol] 13.3 G/dL Normal 12.0 - 16.0 G/dL AO Workflow SS Lipase [Catalytic activity/Vol] 41 U/L Normal 16 - 77 U/L AO ADM SS Lymphocyte, Absolute 2.3 103/mcL Normal 0.8 - 3 .9 10^3/mcL AO Workflow SS Lymphocytes/100 WBC (Bld) 29.4 % Normal 10.0 - 50.0 % AO Workflow SS MCH (RBC) [Entitic mass] 31.2 pg Normal 27.0 - 31.2 pg AO Workflow SS MCHC 35.4 G/dL Normal 33.0 - 37.0 G/dL AO Workflow SS MCV (RBC) [Entitic vol] 88.3 fL Normal 80.0 - 94.0 fL AO Workflow SS Monocyte distribution width Auto (Bld) [Entitic vol] 19.92 1 Normal 0.00 - 20.00 AO Workflow SS Comment on above: Result Comment: For ED adult patients suspected of sepsis, MDW<=20.0 does not rule out sepsis or risk of sepsis Monocyte, Absolute 0.5 103/mcL Normal 0.2 - 1.0 10^3/mcL AO Workflow SS Monocytes/100 WBC (Bld) 6.3 % Normal 1.7 - 13.0 % AO Workflow SS Neutrophil, Absolute 5.1 103/mcL Normal 2.9 - 6 .2 10^3/mcL AO Workflow SS Neutrophils/100 WBC (Bld) 63.1 % Normal 37.0 - 80.0 % AO Workflow SS Platelet mean volume (Bld) [Entitic vol] 9.1 fL Normal 7.4 - 10.4 fL AO Workflow SS Platelets (Bld) [#/Vol] 239 103/mcL Normal 130 - 400 10^3/mcL AO Workflow SS Potassium [Moles/Vol] 4.3 mmol/L Normal 3.5 - 5.1 mmol/L AO ADM SS Protein [Mass/Vol] 8.2 G/dL Normal 6.4 - 8.2 G/dL AO ADM SS RBC (Bld) [#/Vol] 4.26 106/mcL Normal 4.20 - 5.4 0 10^6/mcL AO Workflow SS Sodium [Moles/Vol] 137 mmol/L Normal 136 - 145 mmol/L AO ADM SS Urea nitrogen [Mass/Vol] 15 mg/dL Normal 7 - 18 mg/dL AO ADM SS Urea nitrogen/Creatinine [Mass ratio] 14 ratio Normal 7 - 27 ratio AO ADM SS WBC (Bld) [#/Vol] 8.1 103/mcL Normal 4.6 - 10.8 10^3/mcL AO Workflow SS LABORATORYOrdered By: Keerthi Carlos on 01-30-2024 Appearance (U) Slightly Cloudy *ABN* (01/30/24 11:06 PM) Invalid Interpretation Code Clear AO Auto Urine SS Bacteria LM.HPF (Urine sed) [#/Area] Trace /HPF Invalid Interpretation Code AO Auto Urine SS Bilirubin Ql (U) Negative (01/30/24 11:06 PM) Normal Negative AO Auto Urine SS Color (U) Yellow (01/30/24 11:06 PM) Normal AO Auto Urine SS Glucose Test strip (U) [Mass/Vol] Negative Normal Negative AO Auto Urine SS Hemoglobin Auto test strip (U) [Mass/Vol] Trace *ABN* (01/30/24 11:06 PM) Invalid Interpretation Code Negative AO Auto Urine SS Ketones Ql (U) Negative Normal Negative AO Auto Urine SS UA Leuk Est Negative (01/30/24 11:06 PM) Normal Negative AO Auto Urine SS UA Mucous Trace /HPF Normal AO Auto Urine SS UA Nitrite Negative (01/30/24 11:06 PM) Normal Negative AO Auto Urine SS UA pH 6.5 (01/30/24 11:06 PM) Normal 5.0 - 8.0 AO Auto Urine SS UA Protein Negative Normal Negative AO Auto Urine SS UA RBC 0-5 /HPF Invalid Interpretation Code None Seen AO Auto Urine SS UA Spec Grav 1.015 (01/30/24 11:06 PM) Normal 1.015-1.025 AO Auto Urine SS UA Specimen Type Clean Catch (01/30/24 11:06 PM) Normal AO Auto Urine SS UA Squam Epithelial 5-10 /HPF Invalid Interpretation Code None Seen AO Auto Urine SS UA Urobilinogen 0.2 E.U./dL Normal 0.2-1.0 AO Auto Urine SS WBC LM.HPF (Urine sed) [#/Area] 0-5 /HPF Invalid Interpretation Code None Seen AO Auto Urine SS M7400.3302on 01-27-2024 M7400.3302 Normal [facility] Comment on above: Performed By: #### M 100.637, M600.5000, M7400.3302, L7000.0750, L7000.0700 ####[facility] [address] [place], [address] Ova and Parasites 8623on OP Normal [facility] Comment on above: Performed By: #### M 100.637, M600.5000, M7400.3302, L7000.0750, L7000.0700 ####[facility] [address] 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 FRANK deficiency is the underlying defect in theautosomal recessive disorders Wolman disease and CholesterylEster Storage disease.Director Review:Technical Component analysis performed at [facility] RTPProfessional Component interpretation performed:[facility] Antonella Brownlee, PhDDirector, Biochemical [address] [place] [phone] discuss these results or other testing for inborn errorsof metabolism, please contact our Biochemical Geneticists [phone]), [facility] Genetics Customer Service,RTP, NCMethodologyLysosomal acid lipase activity was measured against theartificial substrate 8-dhopqbmhlvmjdiupgm-ajrdhcacs in thepresence of the inhibitor Lalistat 2.Disclaimer:This test was developed and its performance characteristicsdetermined by [facility]. It has not been cleared or approvedby the Food and Drug Administration. TESTING PERFORMED AT [facility]. ORIGINAL REPORT ON FILE IN LAB CONTAINS ADDITIONAL TEST SITE INFORMATION. Performed By: #### L 501.6710, L3410.1000, L3410.2400, L509.1000, L801.1541, L501.5000, L3300.1800, L3100.4810, L3200.0500, L101.9900, L3400.8000, L4500.0100, L501.9520, L3430.0100, L3100.5017 ####[facility] [address] [place], [place], [id number] ENTERIC PATHOGEN PANEL STOOL on 01-23-2024 EP PANEL Normal [facility] Comment on above: Performed By: #### M 100.637, M600.5000, M7400.3302, L7000.0750, L7000.0700 ####[facility] [address] [place], [place], [phone] Anti-Parietal Cell AB, QNon 01-22-2024 ANTIPARIET CELL 39.1 Units High 0.0-20.0 [facility] Comment on above: Order Comment: [id number] 0 Result Comment: Nega tive 0.0 - 20.0 Equivocal 20.1 - 24.9 Positive >24.9Parietal Cell Antibodies are found in 90% of patientswith pernicious anemia and 30% of first degreerelatives with pernicious anemia. Performed By: #### L 501.6710, L3410.1000, L3410.2400, L509.1000, L801.1541, L501.5000, L3300.1800, L3100.4810, L3200.0500, L101.9900, L3400.8000, L4500.0100, L501.9520, L3430.0100, L3100.5017 ####[facility] [address] [place], [place], [id number] CA 19-9 Serial Monitoron CA 19-9 35 U/mL Normal 0-35 [facility] Comment on above: Order Comment: [id number] 0 Result Comment: [employer] Electrochemiluminescence Immunoassay(ECLIA)Values obtained with different assay methods or kits cannotbe used interchangeably. Results cannot be interpreted asabsolute evidence of the presence or absence of malignantdisease. Performed By: #### L 501.6710, L3410.1000, L3410.2400, L509.1000, L801.1541, L501.5000, L3300.1800, L3100.4810, L3200.0500, L101.9900, L3400.8000, L4500.0100, L501.9520, L3430.0100, L3100.5017 ####[facility] [address] [place], [place], [phone] Catecholamines, Plasmaon DOPAMINE <30 Normal 0-48 [facility] Comment on above: Order Comment: 85441 0 Performed By: #### L 501.6710, L3410.1000, L3410.2400, L509.1000, L801.1541, L501.5000, L3300.1800, L3100.4810, L3200.0500, L101.9900, L3400.8000, L4500.0100, L501.9520, L3430.0100, L3100.5017 ####[facility] [address] [place], [place], [id number] EPINEPHRINE <15 Normal 0-62 [facility] Comment on above: Order Comment: 59386 0 Performed By: #### L 501.6710, L3410.1000, L3410.2400, L509.1000, L801.1541, L501.5000, L3300.1800, L3100.4810, L3200.0500, L101.9900, L3400.8000, L4500.0100, L501.9520, L3430.0100, L3100.5017 ####[facility] [address] [place], [place], [id number] NOREPINEPHRINE 321 pg/mL Normal 0-874 [facility] Comment on above: Order Comment: 68133 0 Performed By: #### L 501.6710, L3410.1000, L3410.2400, L509.1000, L801.1541, L501.5000, L3300.1800, L3100.4810, L3200.0500, L101.9900, L3400.8000, L4500.0100, L501.9520, L3430.0100, L3100.5017 ####[facility] [address] [place], [place], [id number] Celiac Disease Profileon ENDOMYSIAL IGA Negative Normal Negative [facility] Comment on above: Order Comment: 69961 0 Performed By: #### L 501.6710, L3410.1000, L3410.2400, L509.1000, L801.1541, L501.5000, L3300.1800, L3100.4810, L3200.0500, L101.9900, L3400.8000, L4500.0100, L501.9520, L3430.0100, L3100.5017 ####[facility] [address] [place], [place], [id number] IMMUNOGLOB A QN 146 mg/dL Normal 87-352 [facility] Comment on above: Order Comment: 16559 0 Performed By: #### L 501.6710, L3410.1000, L3410.2400, L509.1000, L801.1541, L501.5000, L3300.1800, L3100.4810, L3200.0500, L101.9900, L3400.8000, L4500.0100, L501.9520, L3430.0100, L3100.5017 ####[facility] [address] [place], [place], [id number] tTG IGA <2 Normal 0-3 [facility] Comment on above: Order Comment: 40250 0 Result Comment: Nega tive 0 - 3 Weak Positive 4 - 10 Positive >10 Tissue Transglutaminase (tTG) has been identified as the endomysial antigen. Studies have demonstr- ated that endomysial IgA antibodies have over 99% specificity for gluten sensitive enteropathy. Performed By: #### L 501.6710, L3410.1000, L3410.2400, L509.1000, L801.1541, L501.5000, L3300.1800, L3100.4810, L3200.0500, L101.9900, L3400.8000, L4500.0100, L501.9520, L3430.0100, L3100.5017 ####[facility] [address] [place], [address] Gastrin, Serumon 01-22-2024 GASTRIN 69 pg/mL Normal 0-115 [facility] Comment on above: Order Comment: 04095 0 Result Comment: Siem [facility] Immulite 2000 Immunochemiluminometric assay (ICMA)Values obtained with different assay methods or kits cannotbe used interchangeably. Results cannot be interpreted asabsolute evidence of the presence or absence of malignantdisease. Performed By: #### L 501.6710, L3410.1000, L3410.2400, L509.1000, L801.1541, L501.5000, L3300.1800, L3100.4810, L3200.0500, L101.9900, L3400.8000, L4500.0100, L501.9520, L3430.0100, L3100.5017 ####[facility] [address] [facility] [place], [address] IgG Subclasseson 01-22-2024 IgG, SUBCLASS 1 703 mg/dL Normal 248-810 [facility] Comment on above: Order Comment: 34443 0 Performed By: #### L 501.6710, L3410.1000, L3410.2400, L509.1000, L801.1541, L501.5000, L3300.1800, L3100.4810, L3200.0500, L101.9900, L3400.8000, L4500.0100, L501.9520, L3430.0100, L3100.5017 ####[facility] [address] [place], [address] IgG, SUBCLASS 2 403 mg/dL Normal 130-555 [facility] Comment on above: Order Comment: 75363 0 Performed By: #### L 501.6710, L3410.1000, L3410.2400, L509.1000, L801.1541, L501.5000, L3300.1800, L3100.4810, L3200.0500, L101.9900, L3400.8000, L4500.0100, L501.9520, L3430.0100, L3100.5017 ####[facility] [address] [place], [place], [phone]) IgG, SUBCLASS 3 24 mg/dL Normal 15-102 [facility] Comment on above: Order Comment: [id number] 0 Performed By: #### L 501.6710, L3410.1000, L3410.2400, L509.1000, L801.1541, L501.5000, L3300.1800, L3100.4810, L3200.0500, L101.9900, L3400.8000, L4500.0100, L501.9520, L3430.0100, L3100.5017 ####[facility] [address] [facility] [address] [place], [place], [phone](743) IgG, SUBCLASS 4 32 mg/dL Normal 2-96 [facility] Comment on above: Order Comment: 98641 0 Performed By: #### L 501.6710, L3410.1000, L3410.2400, L509.1000, L801.1541, L501.5000, L3300.1800, L3100.4810, L3200.0500, L101.9900, L3400.8000, L4500.0100, L501.9520, L3430.0100, L3100.5017 ####[facility] [address] [facility] [place], [place], [phone] IGG,QUANT 1297 mg/dL Normal 586-1602 [facility] Comment on above: Order Comment: 24359 0 Performed By: #### L 501.6710, L3410.1000, L3410.2400, L509.1000, L801.1541, L501.5000, L3300.1800, L3100.4810, L3200.0500, L101.9900, L3400.8000, L4500.0100, L501.9520, L3430.0100, L3100.5017 ####[facility] [address] [place], [place], [id number] L3100.4810on 01-22-2024 Chromogranin A 33.5 ng/mL Normal 0.0-101.8 [facility] Comment on above: Order Comment: 57883 0 Result Comment: [employer] mogranin A performed by [employer] KRYPTORmethodologyValues obtained with different assay methods or kits cannotbe used interchangeably.Performed at: - Lab[address] [id number] Director: Jocelyn Ames MD, Phone: [phone] at: [address] [id number] Director: Gama Figueroa PhD, Phone: [phone] Performed By: #### L 501.6710, L3410.1000, L3410.2400, L509.1000, L801.1541, L501.5000, L3300.1800, L3100.4810, L3200.0500, L101.9900, L3400.8000, L4500.0100, L501.9520, L3430.0100, L3100.5017 ####[facility] [address] [place], [place], [id number] Lupus Anticoagulant Compon 0 01-22-2024 aPTT Coag (Bld) [Time] 53.0 s High 0.0-43.5 [facility] Comment on above: Order Comment: 24351 0 Performed By: #### L 501.6710, L3410.1000, L3410.2400, L509.1000, L801.1541, L501.5000, L3300.1800, L3100.4810, L3200.0500, L101.9900, L3400.8000, L4500.0100, L501.9520, L3430.0100, L3100.5017 ####[facility] [address] [place], [address] aPTT Coag (Bld) [Time] 46.7 s High 0.0-40.5 [facility] Comment on above: Order Comment: 13773 0 Performed By: #### L 501.6710, L3410.1000, L3410.2400, L509.1000, L801.1541, L501.5000, L3300.1800, L3100.4810, L3200.0500, L101.9900, L3400.8000, L4500.0100, L501.9520, L3430.0100, L3100.5017 ####[facility] [address] [place], [place], [id number] DILUTE PT (dPT) 34.8 sec Normal 0.0-47.6 [facility] Comment on above: Order Comment: [id number] Performed By: #### L 501.6710, L3410.1000, L3410.2400, L509.1000, L801.1541, L501.5000, L3300.1800, L3100.4810, L3200.0500, L101.9900, L3400.8000, L4500.0100, L501.9520, L3430.0100, L3100.5017 ####[facility] [address] [place], [place], [phone](662 dPT Conf. Ratio 1.32 Ratio Normal 0.00-1.34 [facility] Comment on above: Order Comment: [id number] 0 Performed By: #### L 501.6710, L3410.1000, L3410.2400, L509.1000, L801.1541, L501.5000, L3300.1800, L3100.4810, L3200.0500, L101.9900, L3400.8000, L4500.0100, L501.9520, L3430.0100, L3100.5017 ####[facility] [address] [place], [place], [phone] DRVVT 49.8 sec Abnormal 0.0-47.0 [facility] Comment on above: Order Comment: [id number] 0 Performed By: #### L 501.6710, L3410.1000, L3410.2400, L509.1000, L801.1541, L501.5000, L3300.1800, L3100.4810, L3200.0500, L101.9900, L3400.8000, L4500.0100, L501.9520, L3430.0100, L3100.5017 ####[facility] [address] [place], [place], [phone] DRVVT CONFIRM 1.2 ratio Normal 0.8-1.2 [facility] Comment on above: Order Comment: [id number] 0 Performed By: #### L 501.6710, L3410.1000, L3410.2400, L509.1000, L801.1541, L501.5000, L3300.1800, L3100.4810, L3200.0500, L101.9900, L3400.8000, L4500.0100, L501.9520, L3430.0100, L3100.5017 ####[facility] [address] [place], [address] dRVVT MIX 43.6 sec Abnormal 0.0-40.4 [facility] Comment on above: Order Comment: [id number] 0 Performed By: #### L 501.6710, L3410.1000, L3410.2400, L509.1000, L801.1541, L501.5000, L3300.1800, L3100.4810, L3200.0500, L101.9900, L3400.8000, L4500.0100, L501.9520, L3430.0100, L3100.5017 ####[facility] [address] [place], [address] HEX PHAS PHOSPH 5 sec Normal 0-11 [facility] Comment on above: Order Comment: [id number] 0 Performed By: #### L 501.6710, L3410.1000, L3410.2400, L509.1000, L801.1541, L501.5000, L3300.1800, L3100.4810, L3200.0500, L101.9900, L3400.8000, L4500.0100, L501.9520, L3430.0100, L3100.5017 ####[facility] [address] [place], [address] Interpretation Comment: Normal . [facility] Comment on above: Order Comment: [id number] 0 Result Comment: No l upus anticoagulant was detected. Mixing studies suggest the presence ofan inhibitor. It should be noted that mixing studies performed on sampleswith minimally extended aPTT results can be equivocal. Normal plasma canovercome weak inhibitors, also resulting in a correction of the mixingstudy. The pattern observed could be caused by a specific factorinhibitor, dabigatran (a direct thrombin inhibitor anticoagulant), or adirect Xa inhibitor anticoagulant therapy such as rivaroxaban, apixaban oredoxaban. As antibody titers may fluctuate with time, repeat testing may beindicated and ideally should be performed in the absence of anticoagulanttherapy. Performed By: #### L 501.6710, L3410.1000, L3410.2400, L509.1000, L801.1541, L501.5000, L3300.1800, L3100.4810, L3200.0500, L101.9900, L3400.8000, L4500.0100, L501.9520, L3430.0100, L3100.5017 ####[facility] [address] [place], [address] THROMBIN TIME 20.3 sec Normal 0.0-23.0 [facility] Comment on above: Order Comment: [id number] 0 Performed By: #### L 501.6710, L3410.1000, L3410.2400, L509.1000, L801.1541, L501.5000, L3300.1800, L3100.4810, L3200.0500, L101.9900, L3400.8000, L4500.0100, L501.9520, L3430.0100, L3100.5017 ####[facility] [address] [place], [place], [phone] Quantiferon TB-Gold+on 01-21 QFT MITOGEN RC > 10.00 Normal . [facility] Comment on above: Order Comment: [id number] 0 Performed By: #### L 501.6710, L3410.1000, L3410.2400, L509.1000, L801.1541, L501.5000, L3300.1800, L3100.4810, L3200.0500, L101.9900, L3400.8000, L4500.0100, L501.9520, L3430.0100, L3100.5017 ####[facility] [address] [place], [place], [phone] QFT NIL VALUE 0.18 IU/mL Normal . [facility] Comment on above: Order Comment: [id number] 0 Performed By: #### L 501.6710, L3410.1000, L3410.2400, L509.1000, L801.1541, L501.5000, L3300.1800, L3100.4810, L3200.0500, L101.9900, L3400.8000, L4500.0100, L501.9520, L3430.0100, L3100.5017 ####[facility] [address] [place], [place], [phone] QFT TB GOLD+ Comment Normal . [facility] Comment on above: Order Comment: 42141 0 Result Comment: Abdifatah tiFERON-TB Gold Plus is a qualitative indirect test forM tuberculosis infection (including disease) and isintended for use in conjunction with risk assessment,radiography, and other medical and diagnostic evaluations.The QuantiFERON-TB Gold Plus result is determined bysubtracting the Nil value from either TB antigen (Ag)value. The Mitogen tube serves as a control for the test. Performed By: #### L 501.6710, L3410.1000, L3410.2400, L509.1000, L801.1541, L501.5000, L3300.1800, L3100.4810, L3200.0500, L101.9900, L3400.8000, L4500.0100, L501.9520, L3430.0100, L3100.5017 ####[facility] [address] [place], [address] QFT TB POS CRIT Positive Abnormal Negative [facility] Comment on above: Order Comment: [id number] 0 Result Comment: A re sponse to M tuberculosis antigens has been detected.If patient is at low risk for Tuberculosis, the resultshould be interpreted with caution and repeat testing on anew specimen is recommended (ATS/IDSA/CDC Clinical PracticeGuidelines, 2017). False positives can also occur due toinfection by M kansasii, M szulgai, or M marinum.The specimen received for QuantiFERON testing was incubatedby the ordering institution. Specific procedures outlinedin our Directory of Services and in the package insert forthe QuantiFERON Gold (In Tube) test must be followed toenable for proper stimulation of cells for the productionof interferon gamma. Chemiluminescence immunoassaymethodology Performed By: #### L 501.6710, L3410.1000, L3410.2400, L509.1000, L801.1541, L501.5000, L3300.1800, L3100.4810, L3200.0500, L101.9900, L3400.8000, L4500.0100, L501.9520, L3430.0100, L3100.5017 ####[facility] [address] [place], [address] QFT TB1+ AG RC 0.52 IU/mL Normal . [facility] Comment on above: Order Comment: [id number] 0 Performed By: #### L 501.6710, L3410.1000, L3410.2400, L509.1000, L801.1541, L501.5000, L3300.1800, L3100.4810, L3200.0500, L101.9900, L3400.8000, L4500.0100, L501.9520, L3430.0100, L3100.5017 ####[facility] [address] [place], [place], [phone] QFT TB2+ AG RC 0.54 IU/mL Normal . [facility] Comment on above: Order Comment: [id number] 0 Performed By: #### L 501.6710, L3410.1000, L3410.2400, L509.1000, L801.1541, L501.5000, L3300.1800, L3100.4810, L3200.0500, L101.9900, L3400.8000, L4500.0100, L501.9520, L3430.0100, L3100.5017 ####[facility] [address] [place], [place], [phone] Urine Cultureon 01-17-2024 URC Culture exhibits no growth. Normal [facility] Comment on above: Performed By: #### M 100.2200 ####[facility] [address] [place], [place], [phone] Absolute lymphocyte countOrd ered By: Morcharis Painter on 01-16-2024 Lymphocytes Auto (Unsp spec) [#/Vol] 2.84 10*3/uL 0.83-4.51 [facility] Automated lymphocyte count a s percentage of total leukocytesOrdered By: Morcharis Painter on 01-16-2024 Lymphocytes/100 WBC Auto (Unsp spec) 37.1 % 19-41 [facility] Basophil percentageOrdered B y: Mor Painter on 01-16-2024 Basophils/100 WBC (Bld) 0.4 % 0-1 [facility] Bilirubin [Mass/Vol] 0.70 mg/dL 0.20-1.00 [facility] Comment on above: For patients on eltr ombopag therapy, use of Dimension [place] TBIL is not recommended. Chloride [Moles/Vol] 106 mmol/L 98-107 [facility] Eosinophils/100 WBC (Bld) 2.7 % 0-5 [facility] Glucose [Mass/Vol] 95 mg/dL 74-106 [facility] Hemoglobin (Bld) [Mass/Vol] 13.2 g/dL 12.0-15.0 [facility] Monocytes/100 WBC (Bld) 6.7 % 0-10 [facility] Neutrophils (Bld) [#/Vol] 4.0 10*3/uL 2.0-7.7 [facility] Neutrophils/100 WBC (Bld) 52.7 % 47-70 [facility] Potassium [Moles/Vol] 3.7 mmol/L 3.5-5.1 [facility] Protein [Mass/Vol] 7.9 g/dL 6.4-8.2 [facility] Sodium [Moles/Vol] 140 mmol/L 136-145 [facility] WBC (Bld) [#/Vol] 7.7 10*3/uL 4.4-11.0 [facility] Basophil percentage 0-5 SEEN /hpf 0-5 [facility] Bilirubin Test strip Ql (U)O rdered By: Morcharis Painter on 01-16-2024 Bilirubin Ql (U) Negative Negative [facility] CBC W/Diff, Automatedon 05 Absolute Lymph 2.84 X10 3/uL Normal 0.83-4.51 [facility] Comment on above: Performed By: #### L 500.4050, L100.0100, L501.2450 ####[facility] [address] [place], [address] Absolute Neut 4.0 X10 3/uL Normal 2.0-7.7 [facility] Comment on above: Performed By: #### L 500.4050, L100.0100, L501.2450 ####[facility] [address] [place], [address] Basophils/100 WBC (Bld) 0.4 % Normal 0-1 [facility] Comment on above: Performed By: #### L 500.4050, L100.0100, L501.2450 ####[facility] [address] [place], [address] Eosinophils/100 WBC (Bld) 2.7 % Normal 0-5 [facility] Comment on above: Performed By: #### L 500.4050, L100.0100, L501.2450 ####[facility] [address] [place], [address] Erythrocyte distribution width (RBC) [Ratio] 12.8 % Normal 11.6-14.6 [facility] Comment on above: Performed By: #### L 500.4050, L100.0100, L501.2450 ####[facility] [address] [place], [address] Hematocrit (Bld) [Volume fraction] 41.4 % Normal 37-47 [facility] Comment on above: Performed By: #### L 500.4050, L100.0100, L501.2450 ####[facility] [address] [place], [address] Hemoglobin (Bld) [Mass/Vol] 13.2 g/dL Normal 12.0-15.0 [facility] Comment on above: Performed By: #### L 500.4050, L100.0100, L501.2450 ####[facility] [address] [place], [address] IG% 0.400 Normal 0.0-0.9 [facility] Comment on above: Result Comment: IG% - Immature Granulocytes (promyelocytes, myelocytes andmetamyelocytes) > 1% indicates that a LEFT SHIFT is Present. Performed By: #### L 500.4050, L100.0100, L501.2450 ####[facility] [address] [place], [address] Lymphocytes/100 WBC (Bld) 37.1 % Normal 19-41 [facility] Comment on above: Performed By: #### L 500.4050, L100.0100, L501.2450 ####[facility] [address] [place], [address] MCH (RBC) [Entitic mass] 29.7 pg Normal 27.0-32.0 [facility] Comment on above: Performed By: #### L 500.4050, L100.0100, L501.2450 ####[facility] [address] [place], [address] MCHC (RBC) [Mass/Vol] 31.9 g/dL Low 32-36 [facility] Comment on above: Performed By: #### L 500.4050, L100.0100, L501.2450 ####[facility] [address] [place], [address] MCV (RBC) [Entitic vol] 93.2 fL Normal 81-99 [facility] Comment on above: Performed By: #### L 500.4050, L100.0100, L501.2450 ####[facility] [address] [place], [address] Monocytes/100 WBC (Bld) 6.7 % Normal 0-10 [facility] Comment on above: Performed By: #### L 500.4050, L100.0100, L501.2450 ####[facility] [address] [place], [address] Neutrophils/100 WBC (Bld) 52.7 % Normal 47-70 [facility] Comment on above: Performed By: #### L 500.4050, L100.0100, L501.2450 ####[facility] [address] [place], [address] Nucleated RBC (Bld) [#/Vol] 0 10*3/uL Normal 0-5 [facility] Comment on above: Performed By: #### L 500.4050, L100.0100, L501.2450 ####[facility] [address] [place], [address] Platelet mean volume (Bld) [Entitic vol] 10.5 fL Normal 6.2-12.0 [facility] Comment on above: Performed By: #### L 500.4050, L100.0100, L501.2450 ####[facility] [address] [place], [address] Platelets (Bld) [#/Vol] 246 10*3/uL Normal 150-450 [facility] Comment on above: Performed By: #### L 500.4050, L100.0100, L501.2450 ####[facility] [address] [place], [address] RBC (Bld) [#/Vol] 4.44 10*6/uL Normal 4.2-5.4 [facility] Comment on above: Performed By: #### L 500.4050, L100.0100, L501.2450 ####[facility] [address] [place], [address] RDW SD 43.6 fl Normal 35.1-43.9 [facility] Comment on above: Performed By: #### L 500.4050, L100.0100, L501.2450 ####[facility] [address] [place], [address] WBC (Bld) [#/Vol] 7.7 10*3/uL Normal 4.4-11.0 [facility] Comment on above: Performed By: #### L 500.4050, L100.0100, L501.2450 ####[facility] [address] [place], [address] Comprehensive Metabolic Prof [facility] 01-16-2024 Albumin [Mass/Vol] 4.5 g/dL Normal 3.2-5.0 [facility] Comment on above: Performed By: #### L 500.4050, L100.0100, L501.2450 ####[facility] [address] [place], [address] Albumin/Globulin [Mass ratio] 1.3 {ratio} Normal 0.9-2.4 [facility] Comment on above: Performed By: #### L 500.4050, L100.0100, L501.2450 ####[facility] [address] [place], [address] ALK P 105 U/L Normal 45-117 [facility] Comment on above: Performed By: #### L 500.4050, L100.0100, L501.2450 ####[facility] [address] [place], [address] ALT [Catalytic activity/Vol] 31 U/L Normal 13-56 [facility] Comment on above: Performed By: #### L 500.4050, L100.0100, L501.2450 ####[facility] [address] [place], [address] AST [Catalytic activity/Vol] 18 U/L Normal 15-37 [facility] Comment on above: Performed By: #### L 500.4050, L100.0100, L501.2450 ####[facility] [address] [place], [address] Bilirubin [Mass/Vol] 0.70 mg/dL Normal 0.20-1.00 [facility] Comment on above: Result Comment: For patients on eltrombopag therapy, use of Dimension [place] TBIL is not recommended. Performed By: #### L 500.4050, L100.0100, L501.2450 ####[facility] [address] [place], [address] BUN/CRE 15.2 RATIO Normal 10-20 [facility] Comment on above: Performed By: #### L 500.4050, L100.0100, L501.2450 ####[facility] [address] [place], [address] CA,Total 9.1 mg/dL Normal 8.5-10.1 [facility] Comment on above: Performed By: #### L 500.4050, L100.0100, L501.2450 ####[facility] [address] [place], [address] Chloride [Moles/Vol] 106 mmol/L Normal 98-107 [facility] Comment on above: Performed By: #### L 500.4050, L100.0100, L501.2450 ####[facility] [address] [place], [address] CO2 [Moles/Vol] 32.0 mmol/L Normal 21.0-32.0 [facility] Comment on above: Performed By: #### L 500.4050, L100.0100, L501.2450 ####[facility] [address] [place], [address] Creatinine [Mass/Vol] 1.12 mg/dL High 0.55-1.02 [facility] Comment on above: Result Comment: The validity of the calculated GFR GFRAA in patients over70 years has not been determined. Clinical correlation isessential. Performed By: #### L 500.4050, L100.0100, L501.2450 ####[facility] [address] [place], [address] EST GFR - AA 68 mL/min Normal >60 [facility] Comment on above: Result Comment: Afri can [place] GFR Calc Performed By: #### L 500.4050, L100.0100, L501.2450 ####[facility] [address] [place], [address] GAP 2 Low 5-15 [facility] Comment on above: Performed By: #### L 500.4050, L100.0100, L501.2450 ####[facility] [address] [place], [address] GFR/1.73 sq M.predicted among non-blacks MDRD (S/P/Bld) [Vol rate/Area] 56 mL/min/{1.73_m2} Low >60 [facility] Comment on above: Result Comment: Non- GFR Calc Performed By: #### L 500.4050, L100.0100, L501.2450 ####[facility] [address] [place], [address] Globulin (S) [Mass/Vol] 3.4 g/dL Normal 2.2-4.2 [facility] Comment on above: Performed By: #### L 500.4050, L100.0100, L501.2450 ####[facility] [address] [place], [address] Glucose [Mass/Vol] 95 mg/dL Normal 74-106 [facility] Comment on above: Performed By: #### L 500.4050, L100.0100, L501.2450 ####[facility] [address] [place], [address] Potassium [Moles/Vol] 3.7 mmol/L Normal 3.5-5.1 [facility] Comment on above: Performed By: #### L 500.4050, L100.0100, L501.2450 ####[facility] [address] [place], [address] Sodium [Moles/Vol] 140 mmol/L Normal 136-145 [facility] Comment on above: Performed By: #### L 500.4050, L100.0100, L501.2450 ####[facility] [address] [place], [address] T PROT 7.9 g/dL Normal 6.4-8.2 [facility] Comment on above: Performed By: #### L 500.4050, L100.0100, L501.2450 ####[facility] [address] [place], [address] Urea nitrogen [Mass/Vol] 17 mg/dL Normal 7-18 [facility] Comment on above: Performed By: #### L 500.4050, L100.0100, L501.2450 ####[facility] [address] [place], [address] Culture, urineOrdered By: Nadya Painter on 01-16-2024 Bacteria identified Cx Nom (U) Culture exhibits no growth. [facility] Determination of erythrocyte mean corpuscular volume (MCV)Ordered By: Mor Painter on 01-16-2024 MCV (RBC) [Entitic vol] 93.2 fL 81-99 [facility] Emergency Department Summary on 01-16-2024 Emergency Department Summary Normal [facility] Erythrocyte distribution wid th ratioOrdered By: Mor Painter on 01-16-2024 Erythrocyte distribution width (RBC) [Ratio] 12.8 % 11.6-14.6 [facility] Erythrocyte distribution wid th standard deviationOrdered By: Mor Painter on 01-16-2024 Erythrocyte distribution width (RBC) [Entitic vol] 43.6 fL 35.1-43.9 [facility] Hematocrit Auto (Bld) [Volum e fraction]Ordered By: Mor Painter on 01-16-2024 Hematocrit (Bld) [Volume fraction] 41.4 % 37-47 [facility] Immature granulocytes/100 WB C Auto (Bld)Ordered By: Mor Painter on 01-16-2024 Immature granulocytes/100 WBC (Bld) 0.400 % 0.0-0.9 [facility] Comment on above: IG% - Immature Granu locytes (promyelocytes, myelocytes and metamyelocytes) > 1% indicates that a LEFT SHIFT is Present. Ketones Test strip Ql (U)Ord ered By: Mor Painter on 01-16-2024 Ketones Ql (U) 5 mg/dl Negative [facility] Laboratory - Chemistry and C hemistry - challengeOrdered By: Mor Painter on 01-16-2024 Albumin/Globulin [Mass ratio] 1.3 {ratio} 0.9-2.4 [facility] ALP [Catalytic activity/Vol] 105 U/L 45-117 [facility] ALT [Catalytic activity/Vol] 31 U/L 13-56 [facility] CO2 [Moles/Vol] 32.0 mmol/L 21.0-32.0 [facility] Globulin (S) [Mass/Vol] 3.4 g/dL 2.2-4.2 [facility] Lipase [Catalytic activity/Vol] 39 U/L 13-75 [facility] Comment on above: Please note:LIPASE r evised reference range effective 22. New Lipase methodology. Expected to produce lower values than the previous assay method. NEW Reference Range: 13 - 75 U/L Urea nitrogen/Creatinine [Mass ratio] 15.2 mg/mg 10-20 [facility] - Hematology and Cell countsOrdered By: Mor Painter on 01-16-2024 MCH (RBC) [Entitic mass] 29.7 pg 27.0-32.0 [facility] MCHC (RBC) [Mass/Vol] 31.9 g/dL 32-36 [facility] Nucleated RBC/100 WBC (Bld) [Ratio] 0 % 0-5 [facility] Platelet mean volume (Bld) [Entitic vol] 10.5 fL 6.2-12.0 [facility] Platelets (Bld) [#/Vol] 246 10*3/uL 150-450 [facility] Lipaseon 01-16-2024 Lipase [Catalytic activity/Vol] 39 U/L Normal 13-75 [facility] Comment on above: Result Comment: Jay mortensen note:LIPASE revised reference range effective 22.New Lipase methodology. Expected to produce lower valuesthan the previous assay method.NEW Reference Range: 13 - 75 U/L Performed By: #### L 500.4050, L100.0100, L501.2450 ####[facility] [address] [place], [address] Mucus LM Ql (Urine sed)Order ed By: Mor Painter on 01-16-2024 Mucus Ql (Urine sed) 0 SEEN /hpf [facility] Nitrite Test strip Ql (U)Ord ered By: Mor Paintre on 01-16-2024 Nitrite Ql (U) Negative Negative [facility] No Panel InformationOrdered By: Mor Painter on 01-16-2024 Estimated GFR (MDRD) Amer 68 mL/min >60 [facility] Comment on above: GFR Calc Estimated GFR (MDRD) Non-Af Amer 56 mL/min >60 [facility] Comment on above: Non- GFR Calc Urine RBC 0-5 SEEN /hpf 0-5 [facility] Protein Test strip Ql (U)Ord ered By: Mor Painter on 01-16-2024 Protein Ql (U) 30 mg/dl Negative [facility] RBC Auto (Bld) [#/Vol]Ordere d By: Mor Painter on 01-16-2024 RBC (Bld) [#/Vol] 4.44 10*6/uL 4.2-5.4 [facility] Serum or plasma calcium shelley urement (mass/volume)Ordered By: Mor Painter on 01-16-2024 Calcium [Mass/Vol] 9.1 mg/dL 8.5-10.1 [facility] Serum or plasma creatinine m easurement (mass/volume)Ordered By: Mor Painter on 01-16-2024 Creatinine [Mass/Vol] 1.12 mg/dL 0.55-1.02 [facility] Comment on above: The validity of the calculated GFR & GFRAA in patients over 70 years has not been determined. Clinical correlation is essential. Serum or plasma urea nitroge n measurement (mass/volume)Ordered By: Mor Painter on 01-16-2024 Urea nitrogen [Mass/Vol] 17 mg/dL 7-18 [facility] Squamous epithelial cells de tection in urine sediment by light microscopyOrdered By: Mor Painter on 01-16-2024 Epithelial cells.squamous LM Ql (Urine sed) 5-10 SEEN /hpf 5-10 [facility] Thin prep Papanicolaou smear with manual screeningOrdered By: Mor Painter on 01-16-2024 Thin prep Papanicolaou smear with manual screening 4.5 g/dL 3.2-5.0 [facility] Thin prep Papanicolaou smear with manual screening 18 U/L 15-37 [facility] Thin prep Papanicolaou smear with manual screening 2 5-15 [facility] Urinalysis, Completeon 01-15 BACTERIA 2+ /hpf Normal None Seen [facility] Comment on above: Order Comment: CLEAN CATCH Performed By: #### L 400.0001 ####[facility] [address] [place], [address] EPI,SQUAMOUS 5-10 SEEN Normal 5-10 [facility] Comment on above: Order Comment: CLEAN CATCH Performed By: #### L 400.0001 ####[facility] [address] [place], [address] RBC 0-5 SEEN Normal 0-5 [facility] Comment on above: Order Comment: CLEAN CATCH Performed By: #### L 400.0001 ####[facility] [address] [place], [address] WBC 0-5 SEEN Normal 0-5 [facility] Comment on above: Order Comment: CLEAN CATCH Performed By: #### L 400.0001 ####[facility] [address] [place], [address] Mucus Ql (Urine sed) 0 SEEN Normal [facility] Comment on above: Order Comment: CLEAN CATCH Performed By: #### L 400.0001 ####[facility] [address] [place], [place], [address] Urine blood detectionOrdered By: Mor Painter on 01-16-2024 RBC Ql (U) 10 /ul Negative [facility] Urine clarityOrdered By: Mor Painter on 01-16-2024 Clarity (U) Sl. Cloudy Clear [facility] Urine color determinationOrd ered By: Mor Painter on 01-16-2024 Color (U) Yellow Yellow [facility] Urine glucose detectionOrder ed By: Mor Painter on 01-16-2024 Glucose Ql (U) Normal mg/dl Normal [facility] Urine leukocyte esterase det ection by dipstickOrdered By: Mor Painter on 01-16-2024 Leukocyte esterase Test strip Ql (U) Negative Negative [facility] Urine pHOrdered By: Mor vizcaino on 01-16-2024 pH (U) 5.0 [pH] 5.0 - 8.0 [facility] Urine sediment bacteria coun t by microscopy (number/high power field)Ordered By: Morcharis Painter on 01-16-2024 Bacteria LM.HPF (Urine sed) [#/Area] 2 /[HPF] None Seen [facility] Urine specific gravity measu rementOrdered By: Mor Painter on 01-16-2024 Specific gravity (U) [Rel density] 1.030 1.002-1.030 [facility] Urine urobilinogen measureme ntOrdered By: Morcharis Painter on 01-16-2024 Urobilinogen Ql (U) Normal mg/dl Normal [facility] Basophil percentageOrdered B y: Blue Friend on 01-15-2024 Triglyceride [Mass/Vol] 189 mg/dL <199 [facility] Comment on above: The drugs N-Acetylcy steine and Metamizole may falsely depress this assay.Serum Triglycerides Reference Interval Normal <150 mg/dL Borderline high 150 - 199 mg/dL High 200 - 499 mg/dL Very High > or = 500 mg/dL CRPon 01-15-2024 C-REACTIVE PROT 9.07 mg/L High 0.0-3.0 [facility] Comment on above: Order Comment: [id number] Result Comment: C-Re active Protein (CRP) provides useful information for thediagnosis, therapy and monitoring of inflammatory processesand associated diseases. For the evaluation of Relative Riskfor Cardiovascular Disease, a High Sensitivity CRP (HSCRP)should be ordered. Performed By: #### L 501.6710, L3410.1000, L3410.2400, L509.1000, L801.1541, L501.5000, L3300.1800, L3100.4810, L3200.0500, L101.9900, L3400.8000, L4500.0100, L501.9520, L3430.0100, L3100.5017 ####[facility] [address] [place], [address] Erythrocyte Sed Rateon 01-14 SED RATE 10 mm/hr Normal 0-30 [facility] Comment on above: Performed By: #### L 501.6710, L3410.1000, L3410.2400, L509.1000, L801.1541, L501.5000, L3300.1800, L3100.4810, L3200.0500, L101.9900, L3400.8000, L4500.0100, L501.9520, L3430.0100, L3100.5017 ####[facility] [address] [place], [place], [id number] Erythrocyte sedimentation ra teOrdered By: Blue Rose on 01-15-2024 ESR (Bld) [Velocity] 10 mm/h 0-30 [facility] Gastroenterology Visit Repor ton 01-15-2024 Gastroenterology Visit Report Normal [facility] No Panel InformationOrdered By: Blue Rose on 01-15-2024 C-Reactive Protein Extended Range 9.07 mg/L 0.0-3.0 [facility] Comment on above: C-Reactive Protein ( CRP) provides useful information for thediagnosis, therapy and monitoring of inflammatory processesand associated diseases. For the evaluation of Relative Riskfor Cardiovascular Disease, a High Sensitivity CRP (HSCRP)should be ordered. Parathyroid Hormone (Intact) 73.1 pg/mL 18.4-80.1 [facility] PTHINon 01-15-2024 PTH 73.1 pg/mL Normal 18.4-80.1 [facility] Comment on above: Performed By: #### L 501.6710, L3410.1000, L3410.2400, L509.1000, L801.1541, L501.5000, L3300.1800, L3100.4810, L3200.0500, L101.9900, L3400.8000, L4500.0100, L501.9520, L3430.0100, L3100.5017 ####[facility] [address] [place], [place], [id number] Serum or plasma thyroid stim ulating hormone (TSH) measurement (units/volume)Ordered By: Blue Rose on 01-15-2024 TSH Qn 2.43 uIU/mL 0.358-3.74 [facility] Thyroid Stim Hormone (TSH)on 01-15-2024 TSH 2.43 uIU/mL Normal 0.358-3.74 [facility] Comment on above: Order Comment: [id number] Performed By: #### L 501.6710, L3410.1000, L3410.2400, L509.1000, L801.1541, L501.5000, L3300.1800, L3100.4810, L3200.0500, L101.9900, L3400.8000, L4500.0100, L501.9520, L3430.0100, L3100.5017 ####[facility] [address] [place], [address] Triglycerideson 01-15-2024 Triglyceride [Mass/Vol] 189 mg/dL Normal [facility] Comment on above: Order Comment: [id number] Result Comment: The drugs N-Acetylcysteine and Metamizole may falselydepress this assay.Serum Triglycerides Reference Interval Normal <150 mg/dL Borderline high 150 - 199 mg/dL High 200 - 499 mg/dL Very High > or = 500 mg/dL Performed By: #### L 501.6710, L3410.1000, L3410.2400, L509.1000, L801.1541, L501.5000, L3300.1800, L3100.4810, L3200.0500, L101.9900, L3400.8000, L4500.0100, L501.9520, L3430.0100, L3100.5017 ####[facility] [address] [place], [address] Abdomen/Pelvis without Conto n 12-26-2023 Abdomen/Pelvis without Cont Normal [facility] Absolute lymphocyte countOrd ered By: Carson Ramos on 12-26-2023 Lymphocytes Auto (Unsp spec) [#/Vol] 2.71 10*3/uL 0.83-4.51 [facility] Automated lymphocyte count a s percentage of total leukocytesOrdered By: Carson Ramos on 12-26-2023 Lymphocytes/100 WBC Auto (Unsp spec) 30.8 % 19-41 [facility] Basophil percentageOrdered B y: Carson Ramos on 12-26-2023 Basophil percentage 0-5 SEEN /hpf 0-5 [facility] Basophils/100 WBC (Bld) 0.7 % 0-1 [facility] Bilirubin [Mass/Vol] 0.70 mg/dL 0.20-1.00 [facility] Comment on above: For patients on eltr ombopag therapy, use of Dimension [place] TBIL is not recommended. Chloride [Moles/Vol] 107 mmol/L 98-107 [facility] Eosinophils/100 WBC (Bld) 1.8 % 0-5 [facility] Glucose [Mass/Vol] 127 mg/dL 74-106 [facility] Comment on above: Fasting Glucose resu lt greater than or equal to 126 mg/dL suggests DIABETES MELLITUS per A.D.A. criteria. Hemoglobin (Bld) [Mass/Vol] 13.3 g/dL 12.0-15.0 [facility] Lactate [Moles/Vol] 1.2 mmol/L 0.4-2.0 [facility] Monocytes/100 WBC (Bld) 5.3 % 0-10 [facility] Neutrophils (Bld) [#/Vol] 5.3 10*3/uL 2.0-7.7 [facility] Neutrophils/100 WBC (Bld) 60.4 % 47-70 [facility] Potassium [Moles/Vol] 3.5 mmol/L 3.5-5.1 [facility] Protein [Mass/Vol] 8.0 g/dL 6.4-8.2 [facility] Sodium [Moles/Vol] 140 mmol/L 136-145 [facility] WBC (Bld) [#/Vol] 8.8 10*3/uL 4.4-11.0 [facility] Bilirubin Test strip Ql (U)O rdered By: Carson Parkerarsh on 12-26-2023 Bilirubin Ql (U) Negative Negative [facility] CBC W/Diff, Automatedon 04- Absolute Lymph 2.71 X10 3/uL Normal 0.83-4.51 [facility] Comment on above: Performed By: #### L 500.4050, L501.2450, L100.0100, L503.6005 ####[facility] [address] [place], [address] Absolute Neut 5.3 X10 3/uL Normal 2.0-7.7 [facility] Comment on above: Performed By: #### L 500.4050, L501.2450, L100.0100, L503.6005 ####[facility] [address] [place], [address] Basophils/100 WBC (Bld) 0.7 % Normal 0-1 [facility] Comment on above: Performed By: #### L 500.4050, L501.2450, L100.0100, L503.6005 ####[facility] [address] [place], [address] Eosinophils/100 WBC (Bld) 1.8 % Normal 0-5 [facility] Comment on above: Performed By: #### L 500.4050, L501.2450, L100.0100, L503.6005 ####[facility] [address] [place], [address] Erythrocyte distribution width (RBC) [Ratio] 12.5 % Normal 11.6-14.6 [facility] Comment on above: Performed By: #### L 500.4050, L501.2450, L100.0100, L503.6005 ####[facility] [address] [place], [address] Hematocrit (Bld) [Volume fraction] 41.2 % Normal 37-47 [facility] Comment on above: Performed By: #### L 500.4050, L501.2450, L100.0100, L503.6005 ####[facility] [address] [place], [address] Hemoglobin (Bld) [Mass/Vol] 13.3 g/dL Normal 12.0-15.0 [facility] Comment on above: Performed By: #### L 500.4050, L501.2450, L100.0100, L503.6005 ####[facility] [address] [place], [address] IG% 1.000 High 0.0-0.9 [facility] Comment on above: Result Comment: IG% - Immature Granulocytes (promyelocytes, myelocytes andmetamyelocytes) > 1% indicates that a LEFT SHIFT is Present. Performed By: #### L 500.4050, L501.2450, L100.0100, L503.6005 ####[facility] [address] [place], [address] Lymphocytes/100 WBC (Bld) 30.8 % Normal 19-41 [facility] Comment on above: Performed By: #### L 500.4050, L501.2450, L100.0100, L503.6005 ####[facility] [address] [place], [address] MCH (RBC) [Entitic mass] 29.5 pg Normal 27.0-32.0 [facility] Comment on above: Performed By: #### L 500.4050, L501.2450, L100.0100, L503.6005 ####[facility] [address] [place], [address] MCHC (RBC) [Mass/Vol] 32.3 g/dL Normal 32-36 [facility] Comment on above: Performed By: #### L 500.4050, L501.2450, L100.0100, L503.6005 ####[facility] [address] [place], [address] MCV (RBC) [Entitic vol] 91.4 fL Normal 81-99 [facility] Comment on above: Performed By: #### L 500.4050, L501.2450, L100.0100, L503.6005 ####[facility] [address] [place], [address] Monocytes/100 WBC (Bld) 5.3 % Normal 0-10 [facility] Comment on above: Performed By: #### L 500.4050, L501.2450, L100.0100, L503.6005 ####[facility] [address] [place], [address] Neutrophils/100 WBC (Bld) 60.4 % Normal 47-70 [facility] Comment on above: Performed By: #### L 500.4050, L501.2450, L100.0100, L503.6005 ####[facility] [address] [place], [address] Nucleated RBC (Bld) [#/Vol] 0 10*3/uL Normal 0-5 [facility] Comment on above: Performed By: #### L 500.4050, L501.2450, L100.0100, L503.6005 ####[facility] [address] [place], [address] Platelet mean volume (Bld) [Entitic vol] 10.7 fL Normal 6.2-12.0 [facility] Comment on above: Performed By: #### L 500.4050, L501.2450, L100.0100, L503.6005 ####[facility] [address] [place], [address] Platelets (Bld) [#/Vol] 279 10*3/uL Normal 150-450 [facility] Comment on above: Performed By: #### L 500.4050, L501.2450, L100.0100, L503.6005 ####[facility] [address] [place], [address] RBC (Bld) [#/Vol] 4.51 10*6/uL Normal 4.2-5.4 [facility] Comment on above: Performed By: #### L 500.4050, L501.2450, L100.0100, L503.6005 ####[facility] [address] [place], [address] RDW SD 41.4 fl Normal 35.1-43.9 [facility] Comment on above: Performed By: #### L 500.4050, L501.2450, L100.0100, L503.6005 ####[facility] [address] [place], [address] WBC (Bld) [#/Vol] 8.8 10*3/uL Normal 4.4-11.0 [facility] Comment on above: Performed By: #### L 500.4050, L501.2450, L100.0100, L503.6005 ####[facility] [address] [place], [address] Comprehensive Metabolic Prof ilon 12-26-2023 Albumin [Mass/Vol] 4.1 g/dL Normal 3.2-5.0 [facility] Comment on above: Performed By: #### L 500.4050, L501.2450, L100.0100, L503.6005 ####[facility] [address] [place], [address] Albumin/Globulin [Mass ratio] 1.1 {ratio} Normal 0.9-2.4 [facility] Comment on above: Performed By: #### L 500.4050, L501.2450, L100.0100, L503.6005 ####[facility] [address] [place], [address] ALK P 116 U/L Normal 45-117 [facility] Comment on above: Performed By: #### L 500.4050, L501.2450, L100.0100, L503.6005 ####[facility] [address] [place], [address] ALT [Catalytic activity/Vol] 41 U/L Normal 13-56 [facility] Comment on above: Performed By: #### L 500.4050, L501.2450, L100.0100, L503.6005 ####[facility] [address] [place], [address] AST [Catalytic activity/Vol] 26 U/L Normal 15-37 [facility] Comment on above: Performed By: #### L 500.4050, L501.2450, L100.0100, L503.6005 ####[facility] [address] [place], [address] Bilirubin [Mass/Vol] 0.70 mg/dL Normal 0.20-1.00 [facility] Comment on above: Result Comment: For patients on eltrombopag therapy, use of Dimension [place] TBIL is not recommended. Performed By: #### L 500.4050, L501.2450, L100.0100, L503.6005 ####[facility] [address] [place], [address] BUN/CRE 7.3 RATIO Low 10-20 [facility] Comment on above: Performed By: #### L 500.4050, L501.2450, L100.0100, L503.6005 ####[facility] [address] [place], [address] CA,Total 9.6 mg/dL Normal 8.5-10.1 [facility] Comment on above: Performed By: #### L 500.4050, L501.2450, L100.0100, L503.6005 ####[facility] [address] [place], [address] Chloride [Moles/Vol] 107 mmol/L Normal 98-107 [facility] Comment on above: Performed By: #### L 500.4050, L501.2450, L100.0100, L503.6005 ####[facility] [address] [place], [address] CO2 [Moles/Vol] 28.0 mmol/L Normal 21.0-32.0 [facility] Comment on above: Performed By: #### L 500.4050, L501.2450, L100.0100, L503.6005 ####[facility] [address] [place], [address] Creatinine [Mass/Vol] 1.10 mg/dL High 0.55-1.02 [facility] Comment on above: Result Comment: The validity of the calculated GFR GFRAA in patients over70 years has not been determined. Clinical correlation isessential. Performed By: #### L 500.4050, L501.2450, L100.0100, L503.6005 ####[facility] [address] [place], [address] ECRCL 68.54 ml/min Normal [facility] Comment on above: Performed By: #### L 500.4050, L501.2450, L100.0100, L503.6005 ####[facility] [address] [place], [address] EST GFR - AA 69 mL/min Normal >60 [facility] Comment on above: Result Comment: Afri can [place] GFR Calc Performed By: #### L 500.4050, L501.2450, L100.0100, L503.6005 ####[facility] [address] [place], [address] GAP 5 Normal 5-15 [facility] Comment on above: Performed By: #### L 500.4050, L501.2450, L100.0100, L503.6005 ####[facility] [address] [place], [address] GFR/1.73 sq M.predicted among non-blacks MDRD (S/P/Bld) [Vol rate/Area] 57 mL/min/{1.73_m2} Low >60 [facility] Comment on above: Result Comment: Non- GFR Calc Performed By: #### L 500.4050, L501.2450, L100.0100, L503.6005 ####[facility] [address] [place], [address] Globulin (S) [Mass/Vol] 3.9 g/dL Normal 2.2-4.2 [facility] Comment on above: Performed By: #### L 500.4050, L501.2450, L100.0100, L503.6005 ####[facility] [address] [place], [address] Glucose [Mass/Vol] 127 mg/dL High 74-106 [facility] Comment on above: Result Comment: Fast ing Glucose result greater than or equal to 126 mg/dLsuggests DIABETES MELLITUS per A.D.A. criteria. Performed By: #### L 500.4050, L501.2450, L100.0100, L503.6005 ####[facility] [address] [place], [address] Potassium [Moles/Vol] 3.5 mmol/L Normal 3.5-5.1 [facility] Comment on above: Performed By: #### L 500.4050, L501.2450, L100.0100, L503.6005 ####[facility] [address] [place], [address] Sodium [Moles/Vol] 140 mmol/L Normal 136-145 [facility] Comment on above: Performed By: #### L 500.4050, L501.2450, L100.0100, L503.6005 ####[facility] [address] [place], [address] T PROT 8.0 g/dL Normal 6.4-8.2 [facility] Comment on above: Performed By: #### L 500.4050, L501.2450, L100.0100, L503.6005 ####[facility] [address] [place], [address] Urea nitrogen [Mass/Vol] 8 mg/dL Normal 7-18 [facility] Comment on above: Performed By: #### L 500.4050, L501.2450, L100.0100, L503.6005 ####[facility] [address] [place], [address] Determination of erythrocyte mean corpuscular volume (MCV)Ordered By: Carson Ramos on 12-26-2023 MCV (RBC) [Entitic vol] 91.4 fL 81-99 [facility] Emergency Department Summary on 12-26-2023 Emergency Department Summary Normal [facility] Erythrocyte distribution wid th ratioOrdered By: Carson Ramos on 12-26-2023 Erythrocyte distribution width (RBC) [Ratio] 12.5 % 11.6-14.6 [facility] Erythrocyte distribution wid th standard deviationOrdered By: Carson Ramos on 12-26-2023 Erythrocyte distribution width (RBC) [Entitic vol] 41.4 fL 35.1-43.9 [facility] Hematocrit Auto (Bld) [Volum e fraction]Ordered By: Carson Ramos on 12-26-2023 Hematocrit (Bld) [Volume fraction] 41.2 % 37-47 [facility] Immature granulocytes/100 WB C Auto (Bld)Ordered By: Carson Ramos on 12-26-2023 Immature granulocytes/100 WBC (Bld) 1.000 % 0.0-0.9 [facility] Comment on above: IG% - Immature Granu locytes (promyelocytes, myelocytes and metamyelocytes) > 1% indicates that a LEFT SHIFT is Present. Ketones Test strip Ql (U)Ord ered By: Carson Ramos on 12-26-2023 Ketones Ql (U) Negative Negative [facility] Laboratory - Chemistry and C hemistry - challengeOrdered By: Carson Ramos on 12-26-2023 Albumin/Globulin [Mass ratio] 1.1 {ratio} 0.9-2.4 [facility] ALP [Catalytic activity/Vol] 116 U/L 45-117 [facility] ALT [Catalytic activity/Vol] 41 U/L 13-56 [facility] CO2 [Moles/Vol] 28.0 mmol/L 21.0-32.0 [facility] Globulin (S) [Mass/Vol] 3.9 g/dL 2.2-4.2 [facility] Lipase [Catalytic activity/Vol] 27 U/L 13-75 [facility] Comment on above: Please note:LIPASE r evised reference range effective 22. New Lipase methodology. Expected to produce lower values than the previous assay method. NEW Reference Range: 13 - 75 U/L Urea nitrogen/Creatinine [Mass ratio] 7.3 mg/mg 10-20 [facility] - Hematology and Cell countsOrdered By: Carson Ramos on 12-26-2023 MCH (RBC) [Entitic mass] 29.5 pg 27.0-32.0 [facility] MCHC (RBC) [Mass/Vol] 32.3 g/dL 32-36 [facility] Nucleated RBC/100 WBC (Bld) [Ratio] 0 % 0-5 [facility] Platelet mean volume (Bld) [Entitic vol] 10.7 fL 6.2-12.0 [facility] Platelets (Bld) [#/Vol] 279 10*3/uL 150-450 [facility] Lactic Acidon 12-26-2023 Lactate [Moles/Vol] 1.2 mmol/L Normal 0.4-1.9 [facility] Comment on above: Order Comment: Y Performed By: #### L 500.4050, L501.2450, L100.0100, L503.6005 ####[facility] [address] [place], [address] Lipaseon 12-26-2023 Lipase [Catalytic activity/Vol] 27 U/L Normal 13-75 [facility] Comment on above: Result Comment: Jay mortensen note:LIPASE revised reference range effective 22.New Lipase methodology. Expected to produce lower valuesthan the previous assay method.NEW Reference Range: 13 - 75 U/L Performed By: #### L 500.4050, L501.2450, L100.0100, L503.6005 ####[facility] [address] [place], [place], [address] Mucus LM Ql (Urine sed)Order ed By: Carson Ramos on 12-26-2023 Mucus Ql (Urine sed) 0 SEEN /hpf [facility] Nitrite Test strip Ql (U)Ord ered By: Carson Ramos on 12-26-2023 Nitrite Ql (U) Negative Negative [facility] No Panel InformationOrdered By: Carson Ramos on 12-26-2023 Urine RBC 0 SEEN /hpf 0-5 [facility] Estimated Creatinine Clearance Calc 68.54 ml/min [facility] Estimated GFR (MDRD) Amer 69 mL/min >60 [facility] Comment on above: GFR Calc Estimated GFR (MDRD) Non-Af Amer 57 mL/min >60 [facility] Comment on above: Non- GFR Calc Protein Test strip Ql (U)Ord ered By: Carson Ramos on 12-26-2023 Protein Ql (U) Negative Negative [facility] RBC Auto (Bld) [#/Vol]Ordere d By: Carson Ramos on 12-26-2023 RBC (Bld) [#/Vol] 4.51 10*6/uL 4.2-5.4 [facility] Serum or plasma calcium shelley urement (mass/volume)Ordered By: Carson Ramos on 12-26-2023 Calcium [Mass/Vol] 9.6 mg/dL 8.5-10.1 [facility] Serum or plasma creatinine m easurement (mass/volume)Ordered By: Carson Ramos on 12-26-2023 Creatinine [Mass/Vol] 1.10 mg/dL 0.55-1.02 [facility] Comment on above: The validity of the calculated GFR & GFRAA in patients over 70 years has not been determined. Clinical correlation is essential. Serum or plasma urea nitroge n measurement (mass/volume)Ordered By: Carson Ramos on 12-26-2023 Urea nitrogen [Mass/Vol] 8 mg/dL 7-18 [facility] Squamous epithelial cells de tection in urine sediment by light microscopyOrdered By: Carson Ramos on 12-26-2023 Epithelial cells.squamous LM Ql (Urine sed) 0-5 SEEN /hpf 5-10 [facility] Thin prep Papanicolaou smear with manual screeningOrdered By: Carson Ramos on 12-26-2023 Thin prep Papanicolaou smear with manual screening 4.1 g/dL 3.2-5.0 [facility] Thin prep Papanicolaou smear with manual screening 26 U/L 15-37 [facility] Thin prep Papanicolaou smear with manual screening 5 5-15 [facility] Urinalysis, Completeon 12-25 EPI,SQUAMOUS 0-5 SEEN Normal 5-10 [facility] Comment on above: Order Comment: [place] TO SPECIFY Performed By: #### L 400.0001 ####[facility] [address] [facility] [place], [address] WBC 0-5 SEEN Normal 0-5 [facility] Comment on above: Order Comment: [place] CTOR TO SPECIFY Performed By: #### L 400.0001 ####[facility] [address] [place], [address] BACTERIA 0 SEEN Normal None Seen [facility] Comment on above: Order Comment: [place] CTOR TO SPECIFY Performed By: #### L 400.0001 ####[facility] [address] [place], [address] Mucus Ql (Urine sed) 0 SEEN Normal [facility] Comment on above: Order Comment: [place] CTOR TO SPECIFY Performed By: #### L 400.0001 ####[facility] [address] [place], [address] RBC 0 SEEN Normal 0-5 [facility] Comment on above: Order Comment: COLLE CTOR TO SPECIFY Performed By: #### L 400.0001 ####[facility] [address] [place], [address] Urine blood detectionOrdered By: Carson Ramos on 12-26-2023 RBC Ql (U) Negative Negative [facility] Urine clarityOrdered By: Britt Ramos on 12-26-2023 Clarity (U) Sl. Cloudy Clear [facility] Urine color determinationOrd ered By: Carson Ramos on 12-26-2023 Color (U) Yellow Yellow [facility] Urine glucose detectionOrder ed By: Carson Ramos on 12-26-2023 Glucose Ql (U) Normal mg/dl Normal [facility] Urine leukocyte esterase det ection by dipstickOrdered By: Carson Ramos on 12-26-2023 Leukocyte esterase Test strip Ql (U) Negative Negative [facility] Urine pHOrdered By: Carson kovacs on 12-26-2023 pH (U) 7.0 [pH] 5.0 - 8.0 [facility] Urine sediment bacteria coun t by microscopy (number/high power field)Ordered By: Carson Ramos on 12-26-2023 Bacteria LM.HPF (Urine sed) [#/Area] 0 /[HPF] None Seen [facility] Urine specific gravity measu rementOrdered By: Carson Ramos on 12-26-2023 Specific gravity (U) [Rel density] 1.010 1.002-1.030 [facility] Urine urobilinogen measureme ntOrdered By: Carson Ramos on 12-26-2023 Urobilinogen Ql (U) Normal mg/dl Normal [facility] Gastric Emptying Studyon Gastric Emptying Study Normal [facility] STREP A MOLECULAR (POC)on Procedural Control Valid [facility] Strep A (POCT) Negative Negative [facility] XR Chest PA and Lateralon IMPRESSION: No radiographic evidence of acute cardiopulmonary abnormality. Physical Therapy Nurse: HERMINIO Transcribe Date/Time: Dec 16 2023 5:36P Dictated by : FERNANDO BARNES MD This examination was interpreted and the report reviewed and electronically signed by: FERNANDO BARNES MD on Dec 16 2023 5:36PM [facility] DIVISION OF RADIOLOGY * * *Final Report* * * DATE OF EXAM: Dec 16 2023 5:31PM WOX 5291 - XR CHEST 2V FRONTAL/LAT / PROCEDURE REASON: Acute cough * * * * Physician Interpretation * * * * CHEST RADIOGRAPH: PA and lateral views of the chest Exam Date/Time: 12/16/2023 5:31 PM Indication: Acute cough Comparison: Chest x-ray 10/09/2023 RESULTS: Lines, Tubes, and Devices: None Lungs and Pleura: The lungs are clear. No pleural effusion or pneumothorax. Cardiomediastinal silhouette: The mediastinal and cardiac silhouette are normal in size and contour. Other: The bones of the chest are unremarkable. DIVISION [facility] RADIOLOGY [facility]16/[facility]23 * * *Final Report* * * DATE OF EXAM: Dec 16 2023 5:31PM WOX 5291 - XR CHEST 2V FRONTAL/LAT / PROCEDURE REASON: Acute cough * * * * Physician Interpretation * * * * CHEST RADIOGRAPH: PA and lateral views of the chest Exam Date/Time: 12/16/2023 5:31 PM Indication: Acute cough Comparison: Chest x-ray 10/09/2023 RESULTS: Lines, Tubes, and Devices: None Lungs and Pleura: The lungs are clear. No pleural effusion or pneumothorax. Cardiomediastinal silhouette: The mediastinal and cardiac silhouette are normal in size and contour. Other: The bones of the chest are unremarkable. IMPRESSION IMPRESSION: No radiographic evidence of acute cardiopulmonary abnormality. Physical Therapy Nurse: HERMINIO Transcribe Date/Time: Dec 16 2023 5:36P Dictated by : FERNANDO BARNES MD This examination was interpreted and the report reviewed and electronically signed by: FERNANDO BARNES MD on Dec 16 2023 5:36PM EST [facility] Radiology Study observation (narrative) [facility] XR Chest PA and LateralOrder ed By: Ccf Provider on 12-16-2023 [facility] Emergency Department Summary on 12-09-2023 Emergency Department Summary Normal [facility] Albumin Elph [Mass/Vol]Order ed By: Blue Rose on 12-04-2023 Albumin [Mass/Vol] 3.6 g/dL 2.9-4.4 [facility] Atypical P-ANCA titerOrdered By: Blue Rose on 12-04-2023 Neutrophil cytoplasmic Ab.perinuclear.atypical IF (S) [Titer] <1:20 titer Neg:<1:20 [facility] Comment on above: *Additional results available. Contact laboratory/see report*The atypical pANCA pattern has been observed in asignificant percentage of patients with ulcerative colitis,primary sclerosing cholangitis and autoimmune hepatitis. Basophil percentageOrdered B y: Jonh Geiger on 12-04-2023 Chloride [Moles/Vol] 111 mmol/L 98-107 [facility] Glucose [Mass/Vol] 98 mg/dL 74-106 [facility] Hemoglobin (Bld) [Mass/Vol] 12.7 g/dL 12.0-15.0 [facility] Potassium [Moles/Vol] 3.7 mmol/L 3.5-5.1 [facility] Sodium [Moles/Vol] 141 mmol/L 136-145 [facility] WBC (Bld) [#/Vol] 5.7 10*3/uL 4.4-11.0 [facility] Chitobioside IgA antibody as sayOrdered By: Blue Rose on 12-04-2023 Chitobioside IgA IA Qn 53 units 0-90 [facility] Comment on above: Negative: <80 Equivo sam: 80-90 Positive: >90 Chocolate IgE serumOrdered B y: Blue Rose on 12-04-2023 Chocolate IgE Qn (S) <0.10 kU/L Class 0 [facility] Determination of erythrocyte mean corpuscular volume (MCV)Ordered By: Jonh Geiger on 12-04-2023 MCV (RBC) [Entitic vol] 93.5 fL 81-99 [facility] Discharge Instructionon 11-13 Discharge Instruction Normal [facility] Erythrocyte distribution wid th ratioOrdered By: Jonh Geiger on 12-04-2023 Erythrocyte distribution width (RBC) [Ratio] 12.8 % 11.6-14.6 [facility] Erythrocyte distribution wid th standard deviationOrdered By: Jonh Geiger on 12-04-2023 Erythrocyte distribution width (RBC) [Entitic vol] 43.2 fL 35.1-43.9 [facility] Erythrocyte sedimentation ra teOrdered By: Blue Rose on 12-04-2023 ESR (Bld) [Velocity] 6 mm/h 0-30 [facility] Hematocrit Auto (Bld) [Volum e fraction]Ordered By: Jonh Geiger on 12-04-2023 Hematocrit (Bld) [Volume fraction] 39.0 % 37-47 [facility] Interpretation of serum or p lasma protein pattern by immunofixation (narrative resultOrdered By: Blue Rose on 12-04-2023 Protein Fractions Immunofixation Adrian [Interp] Not Observed g/dL Not Observed [facility] Laboratory - Chemistry and C hemistry - challengeOrdered By: Jonh Geiger on 12-04-2023 CO2 [Moles/Vol] 25.0 mmol/L 21.0-32.0 [facility] Urea nitrogen/Creatinine [Mass ratio] 7.9 mg/mg 10-20 [facility] Laboratory - Hematology and Cell countsOrdered By: Jonh Geiger on 12-04-2023 MCH (RBC) [Entitic mass] 30.5 pg 27.0-32.0 [facility] MCHC (RBC) [Mass/Vol] 32.6 g/dL 32-36 [facility] Platelet mean volume (Bld) [Entitic vol] 10.7 fL 6.2-12.0 [facility] Platelets (Bld) [#/Vol] 209 10*3/uL 150-450 [facility] Laboratory - Miscellaneous t estsOrdered By: Blue Rose on 12-04-2023 Laboratory comment Adrian (Report) Comment . [facility] Comment on above: Suggestive of Crohn' s Disease. Pattern is not conclusivefor disease behavior risk stratification. Service comment (Unsp spec) [Interp] Comment . [facility] Comment on above: Levels of Specific I gE Class Description of Class ----- < 0.10 0 Negative 0.10 - 0.31 0/I Equivocal/Low 0.32 - 0.55 I Low 0.56 - 1.40 II Moderate 1.41 - 3.90 III High 3.91 - 19.00 IV Very High 19.01 - 100.00 V Very High >100.00 Very High Laminaribioside carbohydrate IgG antibody assayOrdered By: Blue Rose on 12-04-2023 Laminaribioside IgG IA Qn 30 units 0-60 [facility] Comment on above: Negative:<55 Equivoc al: 55-60 Positive: >60 MR/CON.PCM.GIon 12-04-2023 MR/CON.PCM.GI Normal [facility] MRCP Abdomen without Contras ton 12-04-2023 MRCP Abdomen without Contrast Normal [facility] No Panel InformationOrdered By: Blue Rose on 12-04-2023 Addendum Document Comment . [facility] Comment on above: Protein electrophore sis scan will follow via computer,mail, or shipper/receiver delivery. Anti-Gliadin IgA Antibody 2 units 0-19 [facility] Comment on above: Negative 0 - 19 Weak Positive 20 - 30 Moderate to Strong Positive >30 Anti-Gliadin IgG Antibody 2 units 0-19 [facility] Comment on above: Negative 0 - 19 Weak Positive 20 - 30 Moderate to Strong Positive >30 Centromere B Antibody <0.2 AI 0.0-0.9 [facility] Endomysial IgA Antibody Negative Negative [facility] Immunoglobulin E 6 IU/mL 6-495 [facility] Immunoglobulin G4 30 mg/dL 2-96 [facility] Immunoglobulin M 163 mg/dL 26-217 [facility] LUZ-1 Antibody <0.2 AI 0.0-0.9 [facility] Mussel Allergen IgE Antibody <0.10 kU/L Class 0 [facility] CAMP TENDER Antibody <0.2 AI 0.0-0.9 [facility] Saccharomyces cerevisiae (Joshua)IgG 99 units 0-50 [facility] Comment on above: Negative: <45 Equivo sam: 45-50 Positive: >50 Shrimp Allergen <0.10 kU/L Class 0 [facility] SM Antibody <0.2 AI 0.0-0.9 [facility] SS-A/Ro IgG Antibody < 0.2 AI 0.0-0.9 [facility] SS-B/La IgG Antibody < 0.2 AI 0.0-0.9 [facility] Tissue Transglutaminase IgG Ab <2 U/mL 0-5 [facility] Comment on above: Negative 0 - 5 Weak Positive 6 - 9 Positive >9 C-Reactive Protein Extended Range 6.61 mg/L 0.0-3.0 [facility] Comment on above: C-Reactive Protein ( CRP) provides useful information for thediagnosis, therapy and monitoring of inflammatory processesand associated diseases. For the evaluation of Relative Riskfor Cardiovascular Disease, a High Sensitivity CRP (HSCRP)should be ordered. No Panel InformationOrdered By: Jonh Geiger on 12-04-2023 Estimated Creatinine Clearance Calc 74.33 ml/min [facility] Estimated GFR (MDRD) Amer 77 mL/min >60 [facility] Comment on above: GFR Calc Estimated GFR (MDRD) Non-Af Amer 63 mL/min >60 [facility] Comment on above: Non- GFR Calc RBC Auto (Bld) [#/Vol]Ordere d By: Jonh Geiger on 12-04-2023 RBC (Bld) [#/Vol] 4.17 10*6/uL 4.2-5.4 [facility] Serum DNA double strand anti body assay (units/volume)Ordered By: Blue Rose on 12-04-2023 DNA double strand Ab Qn (S) 1 [IU]/mL 0-9 [facility] Comment on above: Negative <5 Equivoca l 5 - 9 Positive >9 Serum IgG subclass 1 measure ment (mass/volume)Ordered By: Blue Rose on 12-04-2023 IgG subclass 1 (S) [Mass/Vol] 706 mg/dL 248-810 [facility] Serum IgG subclass 2 measure ment (mass/volume)Ordered By: Blue Rose on 12-04-2023 IgG subclass 2 (S) [Mass/Vol] 342 mg/dL 130-555 [facility] Serum IgG subclass 3 measure ment (mass/volume)Ordered By: Blue Rose on 12-04-2023 IgG subclass 3 (S) [Mass/Vol] 22 mg/dL 15-102 [facility] Serum Scl-70 antibody assay (units/volume)Ordered By: Blue Rose on 12-04-2023 SCL-70 extractable nuclear Ab Qn (S) <0.2 AI 0.0-0.9 [facility] Serum [id number] measu rement by electrophoresisOrdered By: Blue Rose on 12-04-2023 Alpha 1 globulin Elph [Mass/Vol] 0.2 g/dL 0.0-0.4 [facility] Alpha 1 globulin Elph [Mass/Vol] 0.7 g/dL 0.4-1.0 [facility] Serum beef IgE antibody assa y (units/volume)Ordered By: Blue Rose on 12-04-2023 Beef IgE Qn (S) <0.10 kU/L Class 0 [facility] Serum classic neutrophil cyt oplasmic antibody assay (units/volume)Ordered By: Blue Rose on 12-04-2023 Neutrophil cytoplasmic Ab.classic Qn (S) <1:20 titer Neg:<1:20 [facility] Serum codfish IgE antibody a ssay (units/volume)Ordered By: Blue Rose on 12-04-2023 Codfish IgE Qn (S) <0.10 kU/L Class 0 [facility] Serum corn IgE antibody assa y (units/volume)Ordered By: Blue Rose on 12-04-2023 Walnut IgE Qn (S) <0.10 kU/L Class 0 [facility] Serum cow milk IgE antibody assay (units/volume)Ordered By: Blue Rose on 12-04-2023 Cow milk IgE Qn (S) <0.10 kU/L Class 0 [facility] Serum globulin measurement ( mass/volume)Ordered By: Blue Rose on 12-04-2023 Globulin (S) [Mass/Vol] 3.0 g/dL 2.2-3.9 [facility] Serum or plasma IgA measurem ent (mass/volume)Ordered By: Blue Rose on 12-04-2023 IgA [Mass/Vol] 122 mg/dL 87-352 [facility] Serum or plasma IgG measurem ent (mass/volume)Ordered By: Blue Rose on 12-04-2023 IgG [Mass/Vol] 1049 mg/dL 586-1602 [facility] IgG [Mass/Vol] Not Reportable [facility] Serum or plasma beta globuli n measurement by electrophoresis (mass/volume)Ordered By: Blue Rose on 12-04-2023 Beta globulin Elph [Mass/Vol] 1.0 g/dL 0.7-1.3 [facility] Serum or plasma calcium shelley urement (mass/volume)Ordered By: Jonh Geiger on 12-04-2023 Calcium [Mass/Vol] 8.8 mg/dL 8.5-10.1 [facility] Serum or plasma creatinine m easurement (mass/volume)Ordered By: Jonh Geiger on 12-04-2023 Creatinine [Mass/Vol] 1.01 mg/dL 0.55-1.02 [facility] Comment on above: The validity of the calculated GFR & GFRAA in patients over 70 years has not been determined. Clinical correlation is essential. Serum or plasma gamma globul in measurement by electrophoresis (mass/volume)Ordered By: Blue Rose on 12-04-2023 Gamma globulin Elph [Mass/Vol] 1.2 g/dL 0.4-1.8 [facility] Serum or plasma gastrin shelley urement (mass/volume)Ordered By: Blue Rose on 12-04-2023 Gastrin [Mass/Vol] 43 pg/mL 0-115 [facility] Comment on above: Siemens Immulite 200 0 Immunochemiluminometric assay (ICMA)Values obtained with different assay methods or kits cannotbe used interchangeably. Results cannot be interpreted asabsolute evidence of the presence or absence of malignantdisease. Serum or plasma immunoelectr ophoresis interpretation (nominal result)Ordered By: Blue Rose on 12-04-2023 Interpretation IEP [Interp] Comment . [facility] Comment on above: No monoclonality det ected. Serum or plasma mannobioside IgG antibody assay by immunoassay (units/volume)Ordered By: Blue Roes on 12-04-2023 Mannobioside IgG IA Qn 74 units 0-100 [facility] Comment on above: Negative: <90 Equivo sam: 90-100 Positive: >100 This test was developed and its performance characteristics determined by [employer]. It has not been cleared or approved by the Food and Drug Administration. The FDA has determined that such clearance or approval is not necessary. Serum or plasma urea nitroge n measurement (mass/volume)Ordered By: Jonh Geiger on 12-04-2023 Urea nitrogen [Mass/Vol] 8 mg/dL 7-18 [facility] Serum peanut IgE antibody as say (units/volume)Ordered By: Blue Rose on 12-04-2023 Peanut IgE Qn (S) <0.10 kU/L Class 0 [facility] Serum perinuclear neutrophil cytoplasmic antibody titer by immunofluorescenceOrdered By: Blue Rose on 12-04-2023 Neutrophil cytoplasmic Ab.perinuclear IF (S) [Titer] <1:20 titer Neg:<1:20 [facility] Comment on above: The presence of posi tive fluorescence exhibiting P-ANCA orC-ANCA patterns alone is not specific for the diagnosis ofWegener's Granulomatosis (WG) or microscopic polyangiitis.Decisions about treatment should not be based solely onANCA IFA results. The International ANCA Group Consensusrecommends follow up testing of positive sera with both OR-3 and MPO-ANCA enzyme immunoassays. As many as 5% serumsamples are positive only by EIA. Ref. AM J Clin [id number];111:507-513. Serum pork IgE antibody assa y (units/volume)Ordered By: Blue Rose on 12-04-2023 Pork IgE Qn (S) <0.10 kU/L Class 0 [facility] Serum salmon IgE antibody as say (units/volume)Ordered By: Blue Rose on 12-04-2023 Boley IgE Qn (S) <0.10 kU/L Class 0 [facility] Serum soybean IgE antibody a ssay (units/volume)Ordered By: Blue Rose on 12-04-2023 Soybean IgE Qn (S) <0.10 kU/L Class 0 [facility] Serum tissue transglutaminas e IgA antibody assay (units/volume)Ordered By: Blue Rose on 12-04-2023 tTG IgA Qn (S) <2 U/mL 0-3 [facility] Comment on above: Negative 0 - 3 Weak Positive 4 - 10 Positive >10 Tissue Transglutaminase (tTG) has been identified as the endomysial antigen. Studies have demonstr- ated that endomysial IgA antibodies have over 99% specificity for gluten sensitive enteropathy. Serum tuna IgE antibody assa y (units/volume)Ordered By: Blue Rose on 12-04-2023 Tuna IgE Qn (S) <0.10 kU/L Class 0 [facility] Serum wheat IgE antibody ass ay (units/volume)Ordered By: Blue Rose on 12-04-2023 Wheat IgE Qn (S) <0.10 kU/L Class 0 [facility] Serum whole egg IgE antibody assay (units/volume)Ordered By: Blue Rose on 12-04-2023 Whole Egg IgE Qn (S) <0.10 kU/L Class 0 [facility] Comment on above: Performed at: [facility] [address] [id number] Director: Gama Figueroa PhD, Phone: [phone] at: [employer] [address] [id number] Director: Jocelyn Ames MD, Phone: [phone] Thin prep Papanicolaou smear with manual screeningOrdered By: Blue Rose on 12-04-2023 Thin prep Papanicolaou smear with manual screening 38.4 ng/mL 0.0-101.8 [facility] Comment on above: Chromogranin A perfo rmed by [employer] KRYPTORmethodologyValues obtained with different assay methods or kits cannotbe used interchangeably.Performed at: [facility] [address] [id number] Director: Gama Figueroa PhD, Phone: [phone] at: [facility] [address] [id number] Director: Jocelyn Ames MD, Phone: [phone] Thin prep Papanicolaou smear with manual screening 1.3 0.7-1.7 [facility] Thin prep Papanicolaou smear with manual screeningOrdered By: Jonh gm on 12-04-2023 Thin prep Papanicolaou smear with manual screening 5 5-15 [facility] Total protein bloodOrdered B y: Blue Rose on 12-04-2023 Protein [Mass/Vol] 6.6 g/dL 6.0-8.5 [facility] Absolute lymphocyte countOrd ered By: Brina Quinteros on 12-03-2023 Lymphocytes Auto (Unsp spec) [#/Vol] 3.76 10*3/uL 0.83-4.51 [facility] Automated lymphocyte count a s percentage of total leukocytesOrdered By: Brina Quinteros on 12-03-2023 Lymphocytes/100 WBC Auto (Unsp spec) 44.6 % 19-41 [facility] Basophil percentageOrdered B y: Brina Quinteros on 12-03-2023 Basophils/100 WBC (Bld) 0.7 % 0-1 [facility] Bilirubin [Mass/Vol] 0.60 mg/dL 0.20-1.00 [facility] Comment on above: For patients on eltr ombopag therapy, use of Dimension [place] TBIL is not recommended. Chloride [Moles/Vol] 108 mmol/L 98-107 [facility] Eosinophils/100 WBC (Bld) 2.0 % 0-5 [facility] Glucose [Mass/Vol] 103 mg/dL 74-106 [facility] Comment on above: Fasting Glucose resu lt from 100 to 125 mg/dL suggests IMPAIRED HOMEOSTASIS per A.D.A. criteria. Hemoglobin (Bld) [Mass/Vol] 13.0 g/dL 12.0-15.0 [facility] Monocytes/100 WBC (Bld) 6.8 % 0-10 [facility] Neutrophils (Bld) [#/Vol] 3.8 10*3/uL 2.0-7.7 [facility] Neutrophils/100 WBC (Bld) 45.2 % 47-70 [facility] Potassium [Moles/Vol] 3.6 mmol/L 3.5-5.1 [facility] Protein [Mass/Vol] 7.5 g/dL 6.4-8.2 [facility] Sodium [Moles/Vol] 139 mmol/L 136-145 [facility] WBC (Bld) [#/Vol] 8.4 10*3/uL 4.4-11.0 [facility] Determination of erythrocyte mean corpuscular volume (MCV)Ordered By: Brina Quinteros on 12-03-2023 MCV (RBC) [Entitic vol] 92.3 fL 81-99 [facility] Erythrocyte distribution wid th ratioOrdered By: Brinabernard Quinteros on 12-03-2023 Erythrocyte distribution width (RBC) [Ratio] 12.4 % 11.6-14.6 [facility] Erythrocyte distribution wid th standard deviationOrdered By: Brina Quinteros on 12-03-2023 Erythrocyte distribution width (RBC) [Entitic vol] 42.4 fL 35.1-43.9 [facility] Hematocrit Auto (Bld) [Volum e fraction]Ordered By: Brina Quinteros on 12-03-2023 Hematocrit (Bld) [Volume fraction] 40.5 % 37-47 [facility] Immature granulocytes/100 WB C Auto (Bld)Ordered By: Brinabernard Quinteros on 12-03-2023 Immature granulocytes/100 WBC (Bld) 0.700 % 0.0-0.9 [facility] Comment on above: IG% - Immature Granu locytes (promyelocytes, myelocytes and metamyelocytes) > 1% indicates that a LEFT SHIFT is Present. Laboratory - Chemistry and C hemistry - challengeOrdered By: Brina Quinteros on 12-03-2023 Albumin/Globulin [Mass ratio] 1.1 {ratio} 0.9-2.4 [facility] ALP [Catalytic activity/Vol] 102 U/L 45-117 [facility] ALT [Catalytic activity/Vol] 35 U/L 13-56 [facility] CO2 [Moles/Vol] 25.0 mmol/L 21.0-32.0 [facility] Globulin (S) [Mass/Vol] 3.6 g/dL 2.2-4.2 [facility] Lipase [Catalytic activity/Vol] 37 U/L 13-75 [facility] Comment on above: Please note:LIPASE r evised reference range effective 22. New Lipase methodology. Expected to produce lower values than the previous assay method. NEW Reference Range: 13 - 75 U/L Urea nitrogen/Creatinine [Mass ratio] 9.8 mg/mg 10-20 [facility] Laboratory - Hematology and Cell countsOrdered By: Brina Quinteros on 12-03-2023 MCH (RBC) [Entitic mass] 29.6 pg 27.0-32.0 [facility] MCHC (RBC) [Mass/Vol] 32.1 g/dL 32-36 [facility] Nucleated RBC/100 WBC (Bld) [Ratio] 0 % 0-5 [facility] Platelet mean volume (Bld) [Entitic vol] 11.3 fL 6.2-12.0 [facility] Platelets (Bld) [#/Vol] 261 10*3/uL 150-450 [facility] No Panel InformationOrdered By: Brina Quinteros on 12-03-2023 Estimated Creatinine Clearance Calc 73.96 ml/min [facility] Estimated GFR (MDRD) Amer 76 mL/min >60 [facility] Comment on above: GFR Calc Estimated GFR (MDRD) Non-Af Amer 63 mL/min >60 [facility] Comment on above: Non- GFR Calc RBC Auto (Bld) [#/Vol]Ordere d By: Brina Quinteros on 12-03-2023 RBC (Bld) [#/Vol] 4.39 10*6/uL 4.2-5.4 [facility] Serum or plasma calcium shelley urement (mass/volume)Ordered By: Brina Quinteros on 12-03-2023 Calcium [Mass/Vol] 9.4 mg/dL 8.5-10.1 [facility] Serum or plasma creatinine m easurement (mass/volume)Ordered By: Brina Quinteros on 12-03-2023 Creatinine [Mass/Vol] 1.02 mg/dL 0.55-1.02 [facility] Comment on above: The validity of the calculated GFR & GFRAA in patients over 70 years has not been determined. Clinical correlation is essential. Serum or plasma urea nitroge n measurement (mass/volume)Ordered By: Brina Quinteros on 12-03-2023 Urea nitrogen [Mass/Vol] 10 mg/dL 7-18 [facility] Thin prep Papanicolaou smear with manual screeningOrdered By: Brinabernard Quinteros on 12-03-2023 Thin prep Papanicolaou smear with manual screening 3.9 g/dL 3.2-5.0 [facility] Thin prep Papanicolaou smear with manual screening 20 U/L 15-37 [facility] Thin prep Papanicolaou smear with manual screening 6 5-15 [facility] XR Chest PA and Lateralon IMPRESSION: No acute radiographic abnormality. Physical Therapy Nurse: PSCB Transcribe Date/Time: Oct 09 2023 7:44P Dictated by : SHY SHEA MD This examination was interpreted and the report reviewed and electronically signed by: SHY SHEA MD on Oct 09 2023 7:44PM [facility] DIVISION OF RADIOLOGY * * *Final Report* * * DATE OF EXAM: Oct 09 2023 5:12PM WOX 5291 - XR CHEST 2V FRONTAL/LAT / PROCEDURE REASON: Acute cough * * * * Physician Interpretation * * * * EXAMINATION: CHEST RADIOGRAPH (2 VIEW FRONTAL & LATERAL) CLINICAL HISTORY: Acute cough MQ: XC2_6 EXAM DATE/TIME: 10/09/2023 5:12 PM COMPARISON: 09/10/2023 RESULT: Lines, tubes, and devices: None. Lungs and pleura: No consolidation. No lung mass. No pleural effusion. No pneumothorax. Cardiomediastinal silhouette: Normal cardiomediastinal silhouette. Bones and soft tissues: Unremarkable. DIVISION OF RADIOLOGY Provider, [facility] - 10/09/2023 * * *Final Report* * * DATE OF EXAM: Oct 09 2023 5:12PM WOX 5291 - XR CHEST 2V FRONTAL/LAT / PROCEDURE REASON: Acute cough * * * * Physician Interpretation * * * * EXAMINATION: CHEST RADIOGRAPH (2 VIEW FRONTAL & LATERAL) CLINICAL HISTORY: Acute cough MQ: XC2_6 EXAM DATE/TIME: 10/09/2023 5:12 PM COMPARISON: 09/10/2023 RESULT: Lines, tubes, and devices: None. Lungs and pleura: No consolidation. No lung mass. No pleural effusion. No pneumothorax. Cardiomediastinal silhouette: Normal cardiomediastinal silhouette. Bones and soft tissues: Unremarkable. IMPRESSION IMPRESSION: No acute radiographic abnormality. Physical Therapy Nurse: PSCB Transcribe Date/Time: Oct 09 2023 7:44P Dictated by : SHY SHEA MD This examination was interpreted and the report reviewed and electronically signed by: SHY SHEA MD on Oct 09 2023 7:44PM EST [facility] Radiology Study observation (narrative) [facility] XR Chest PA and LateralOrder ed By: Ccf Provider on 10-09-2023 [facility] XR Chest PA and Lateralon IMPRESSION: Stable exam with no acute radiographic abnormality. Physical Therapy Nurse: PSCB Transcribe Date/Time: Sep 10 2023 5:42P Dictated by : SHANNON PICKETT MD This examination was interpreted and the report reviewed and electronically signed by: SHANNON PICKETT MD on Sep 10 2023 5:42PM EST DIVISION OF RADIOLOGY * * *Final Report* * * DATE OF EXAM: Sep 10 2023 5:41PM WOX 5291 - XR CHEST 2V FRONTAL/LAT / PROCEDURE REASON: Acute cough * * * * Physician Interpretation * * * * EXAMINATION: CHEST RADIOGRAPH (2 VIEW FRONTAL & LATERAL) CLINICAL HISTORY: Acute cough MQ: XC2_6 EXAM DATE/TIME: 09/10/2023 5:41 PM COMPARISON: 03/09/2023. RESULT: Lines, tubes, and devices: None. Lungs and pleura: No consolidation. No lung mass. No pleural effusion. No pneumothorax. Cardiomediastinal silhouette: Normal cardiomediastinal silhouette. Bones and soft tissues: Unremarkable. DIVISION OF RADIOLOGY Provider, [facility] - 09/10/2023 * * *Final Report* * * DATE OF EXAM: Sep 10 2023 5:41PM WOX 5291 - XR CHEST 2V FRONTAL/LAT / PROCEDURE REASON: Acute cough * * * * Physician Interpretation * * * * EXAMINATION: CHEST RADIOGRAPH (2 VIEW FRONTAL & LATERAL) CLINICAL HISTORY: Acute cough MQ: XC2_6 EXAM DATE/TIME: 09/10/2023 5:41 PM COMPARISON: 03/09/2023. RESULT: Lines, tubes, and devices: None. Lungs and pleura: No consolidation. No lung mass. No pleural effusion. No pneumothorax. Cardiomediastinal silhouette: Normal cardiomediastinal silhouette. Bones and soft tissues: Unremarkable. IMPRESSION IMPRESSION: Stable exam with no acute radiographic abnormality. Physical Therapy Nurse: HERMINIO Transcribe Date/Time: Sep 10 2023 5:42P Dictated by : SHANNON PICKETT MD This examination was interpreted and the report reviewed and electronically signed by: SHANNON PICKETT MD on Sep 10 2023 5:42PM EST [facility] Radiology Study observation (narrative) [facility] XR Chest PA and LateralOrder ed By: Ccf Provider on 09-10-2023 [facility] XR HAND GENERAL 3V PA/LAT/OB L RIGHTon 08-18-2023 [facility] XR Hand - right PA and Later al and Obliqueon 08-18-2023 IMPRESSION: Unremark able right hand x-ray. Physical Therapy [facility]: [facility] Transcribe Date/Time: Aug 18 2023 2:52P Dictated by : KORI BLANKENSHIP MD This examination was interpreted and the report reviewed and electronically signed by: KORI BLANKENSHIP MD on Aug 18 2023 2:58PM EST DIVISION OF RADIOLOGY * * *Final Report* * * DATE OF EXAM: Aug 18 2023 2:48PM WOX 5346 - XR HAND 3V PA/LAT/OBL RT / PROCEDURE REASON: Hand injury, right, initial encounter * * * * Physician Interpretation * * * * EXAM TITLE: XR HAND 3V PA/LAT/OBL RT EXAM DATE/TIME: 08/18/2023 2:48 PM COMPARISON: None. CLINICAL INDICATION/HISTORY: Injury. TECHNIQUE: PA, lateral and oblique views of the right hand are presented. FINDINGS: No acute fractures or subluxations are noted. The joint spaces are well preserved. The mineralization of the bones is normal. There is no significant soft tissue swelling. DIVISION OF RADIOLOGY Provider, Ezra Jansen [facility] - 08/18/2023 * * *Final Report* * * DATE OF EXAM: Aug 18 2023 2:48PM WOX 5346 - XR HAND 3V PA/LAT/OBL RT / PROCEDURE REASON: Hand injury, right, initial encounter * * * * Physician Interpretation * * * * EXAM TITLE: XR HAND 3V PA/LAT/OBL RT EXAM DATE/TIME: 08/18/2023 2:48 PM COMPARISON: None. CLINICAL INDICATION/HISTORY: Injury. TECHNIQUE: PA, lateral and oblique views of the right hand are presented. FINDINGS: No acute fractures or subluxations are noted. The joint spaces are well preserved. The mineralization of the bones is normal. There is no significant soft tissue swelling. IMPRESSION IMPRESSION: Unremarkable right hand x-ray. Physical Therapy Nurse: PSCB Transcribe Date/Time: Aug 18 2023 2:52P Dictated by : KORI BLANKENSHIP MD This examination was interpreted and the report reviewed and electronically signed by: KORI BLANKENSHIP MD on Aug 18 2023 2:58PM EST [facility] Radiology [facility]narrative[facility] Hand - right PA and Later al and ObliqueOrdered By: [facility] Provider on 08-18-2023 [facility] Absolute lymphocyte countOrd ered By: Vasiliy Mcdermott on 07-22-2023 Lymphocytes Auto (Unsp spec) [#/Vol] 3.07 10*3/uL 0.83-4.51 [facility] Basophil percentageOrdered B y: Vasiliy Mcdermott on 07-22-2023 Basophils/100 WBC (Bld) 0.6 % 0-1 [facility] Chloride [Moles/Vol] 107 mmol/L 98-107 [facility] Eosinophils/100 WBC (Bld) 3.2 % 0-5 [facility] Glucose [Mass/Vol] 119 mg/dL 74-106 [facility] Comment on above: Fasting Glucose resu lt from 100 to 125 mg/dL suggests IMPAIRED HOMEOSTASIS per A.D.A. criteria. Neutrophils (Bld) [#/Vol] 4.4 10*3/uL 2.0-7.7 [facility] Neutrophils/100 WBC (Bld) 52.5 % 47-70 [facility] Potassium [Moles/Vol] 3.7 mmol/L 3.5-5.1 [facility] Sodium [Moles/Vol] 138 mmol/L 136-145 [facility] WBC (Bld) [#/Vol] 8.3 10*3/uL 4.4-11.0 [facility] Blood erythrocytes count (nu mber/volume)Ordered By: Vasiliy Mcdermott on 07-22-2023 RBC (Bld) [#/Vol] 4.19 10*6/uL 4.2-5.4 [facility] Blood hemoglobin measurement (mass/volume)Ordered By: Vasiliy Mcdermott on 07-22-2023 Hemoglobin (Bld) [Mass/Vol] 12.7 g/dL 12.0-15.0 [facility] Blood lymphocytes/100 leukoc ytesOrdered By: Davis Sharron on 07-22-2023 Lymphocytes/100 WBC (Bld) 36.9 % 19-41 [facility] Blood monocytes/100 leukocyt esOrdered By: Davis Sharron on 07-22-2023 Monocytes/100 WBC (Bld) 6.0 % 0-10 [facility] Blood platelet mean volumeOr dered By: Vasiliy Mcdermott on 07-22-2023 Platelet mean volume (Bld) [Entitic vol] 10.8 fL 6.2-12.0 [facility] Determination of erythrocyte mean corpuscular volume (MCV)Ordered By: Vasiliy Mcdermott on 07-22-2023 MCV (RBC) [Entitic vol] 92.8 fL 81-99 [facility] Hematocrit Auto (Bld) [Volum e fraction][facility]: [facility] on 07-22-2023 Hematocrit (Bld) [Volume fraction] 38.9 % 37-47 [facility] Influenza virus A and B and SARS-CoV-2 (COVID-19) Ag panel - Upper respiratory specimOrdered By: Vasiliy Mcdermott on 07-22-2023 SARS-CoV-2 (COVID-19) RNA ABRAM+probe Ql (Resp) [facility] - Chemistry and C hemistry - challengeOrdered By: Vasiliy Mcdermott on 07-22-2023 CO2 [Moles/Vol] 30.0 mmol/L 21.0-32.0 [facility] Urea nitrogen/Creatinine [Mass ratio] 12.3 mg/mg 10-20 [facility] - Hematology and Cell countsOrdered By: Vasiliy Mcdermott on 07-22-2023 Erythrocyte distribution width (RBC) [Entitic vol] 43.5 fL 35.1-43.9 [facility] Erythrocyte distribution width (RBC) [Ratio] 12.9 % 11.6-14.6 [facility] Immature granulocytes/100 WBC (Bld) 0.800 % 0.0-0.9 [facility] Comment on above: IG% - Immature Granu locytes (promyelocytes, myelocytes and metamyelocytes) > 1% indicates that a LEFT SHIFT is Present. MCH (RBC) [Entitic mass] 30.3 pg 27.0-32.0 [facility] Nucleated RBC/100 WBC (Bld) [Ratio] 0 % 0-5 [facility] MCHC Auto (RBC) [Mass/Vol]Or dered By: Vasiliy Mcdermott on 07-22-2023 MCHC (RBC) [Mass/Vol] 32.6 g/dL 32-36 [facility] No Panel InformationOrdered By: Vasiliy Mcdermott on 07-22-2023 Estimated Creatinine Clearance Calc 48.02 ml/min [facility] Estimated GFR (MDRD) Amer 67 mL/min >60 [facility] Comment on above: GFR Calc Estimated GFR (MDRD) Non-Af Amer 55 mL/min >60 [facility] Comment on above: Non- GFR Calc Platelets bldOrdered By: Fanny Mcdermott on 07-22-2023 Platelets (Bld) [#/Vol] 232 10*3/uL 150-450 [facility] Serum or plasma calcium shelley urement (mass/volume)Ordered By: Vasiliy Mcdermott on 07-22-2023 Calcium [Mass/Vol] 8.8 mg/dL 8.5-10.1 [facility] Serum or plasma creatinine m easurement (mass/volume)Ordered By: Vasiliy Mcdermott on 07-22-2023 Creatinine [Mass/Vol] 1.14 mg/dL 0.55-1.02 [facility] Comment on above: The validity of the calculated GFR & GFRAA in patients over 70 years has not been determined. Clinical correlation is essential. Serum or plasma urea nitroge n measurement (mass/volume)Ordered By: Vasiliy Mcdermott on 07-22-2023 Urea nitrogen [Mass/Vol] 14 mg/dL 7-18 [facility] Thin prep Papanicolaou smear with manual screeningOrdered By: Vasiliy Mcdermott on 07-22-2023 Thin prep Papanicolaou smear with manual screening 1 5-15 [facility] Upper respiratory specimen i nfluenza A virus, influenza B virus, and severe acute resOrdered By: Vasiliy Mcdermott on 07-22-2023 Upper respiratory specimen influenza A virus, influenza B virus, and severe acute res [facility] Absolute lymphocyte countOrd ered By: Vikram Dominguez on 06-11-2023 Lymphocytes Auto (Unsp spec) [#/Vol] 3.53 10*3/uL 0.83-4.51 [facility] Basophil percentageOrdered B y: Vikram Dominguez on 06-11-2023 Basophils/100 WBC (Bld) 0.7 % 0-1 [facility] Bilirubin [Mass/Vol] 0.30 mg/dL 0.20-1.00 [facility] Comment on above: For patients on eltr ombopag therapy, use of Dimension [place] TBIL is not recommended. Chloride [Moles/Vol] 107 mmol/L 98-107 [facility] Eosinophils/100 WBC (Bld) 2.8 % 0-5 [facility] Glucose [Mass/Vol] 105 mg/dL 74-106 [facility] Comment on above: Fasting Glucose resu lt from 100 to 125 mg/dL suggests IMPAIRED HOMEOSTASIS per A.D.A. criteria. Neutrophils (Bld) [#/Vol] 4.4 10*3/uL 2.0-7.7 [facility] Neutrophils/100 WBC (Bld) 50.0 % 47-70 [facility] Potassium [Moles/Vol] 3.9 mmol/L 3.5-5.1 [facility] Comment on above: Slight Hemolysis, Re sult may be falsely increased. Protein [Mass/Vol] 7.2 g/dL 6.4-8.2 [facility] Sodium [Moles/Vol] 138 mmol/L 136-145 [facility] WBC (Bld) [#/Vol] 8.8 10*3/uL 4.4-11.0 [facility] Blood erythrocytes count (nu mber/volume)Ordered By: Vikram Dominguez on 06-11-2023 RBC (Bld) [#/Vol] 4.16 10*6/uL 4.2-5.4 [facility] Blood hemoglobin measurement (mass/volume)Ordered By: Vikram Dominguez on 06-11-2023 Hemoglobin (Bld) [Mass/Vol] 12.3 g/dL 12.0-15.0 [facility] Blood lymphocytes/100 leukoc ytesOrdered By: Vikram Dominguez on 06-11-2023 Lymphocytes/100 WBC (Bld) 39.9 % 19-41 [facility] Blood monocytes/100 leukocyt esOrdered By: Vikram Dominguez on 06-11-2023 Monocytes/100 WBC (Bld) 5.7 % 0-10 [facility] Blood platelet mean volumeOr dered By: Vikram Dominguez on 06-11-2023 Platelet mean volume (Bld) [Entitic vol] 10.5 fL 6.2-12.0 [facility] Determination of erythrocyte mean corpuscular volume (MCV)Ordered By: Vikram Dominguez on 06-11-2023 MCV (RBC) [Entitic vol] 92.8 fL 81-99 [facility] Direct bilirubinOrdered By: Vikram Dominguez on 06-11-2023 Bilirubin.direct [Mass/Vol] 0.08 mg/dL 0.00-0.30 [facility] Hematocrit Auto (Bld) [Volum e fraction]Ordered By: Vikram Dominguez on 06-11-2023 Hematocrit (Bld) [Volume fraction] 38.6 % 37-47 [facility] - Chemistry and C hemistry - challengeOrdered By: Vikram Dominguez on 06-11-2023 ALP [Catalytic activity/Vol] 105 U/L 45-117 [facility] ALT [Catalytic activity/Vol] 37 U/L 13-56 [facility] CO2 [Moles/Vol] 27.0 mmol/L 21.0-32.0 [facility] Globulin (S) [Mass/Vol] 3.5 g/dL 2.2-4.2 [facility] Lipase [Catalytic activity/Vol] 42 U/L 13-75 [facility] Comment on above: Please note:LIPASE r evised reference range effective 22. New Lipase methodology. Expected to produce lower values than the previous assay method. NEW Reference Range: 13 - 75 U/L Urea nitrogen/Creatinine [Mass ratio] 10.5 mg/mg 10-20 [facility] - Hematology and Cell countsOrdered By: Vikram Dominguez on 06-11-2023 Erythrocyte distribution width (RBC) [Entitic vol] 45.4 fL 35.1-43.9 [facility] Erythrocyte distribution width (RBC) [Ratio] 13.4 % 11.6-14.6 [facility] Immature granulocytes/100 WBC (Bld) 0.900 % 0.0-0.9 [facility] Comment on above: IG% - Immature Granu locytes (promyelocytes, myelocytes and metamyelocytes) > 1% indicates that a LEFT SHIFT is Present. MCH (RBC) [Entitic mass] 29.6 pg 27.0-32.0 [facility] Nucleated RBC/100 WBC (Bld) [Ratio] 0 % 0-5 [facility] MCHC Auto (RBC) [Mass/Vol]Or dered By: Vikram Dominguez on 06-11-2023 MCHC (RBC) [Mass/Vol] 31.9 g/dL 32-36 [facility] No Panel InformationOrdered By: Vikram Dominguez on 06-11-2023 Estimated GFR (MDRD) Amer 73 mL/min >60 [facility] Comment on above: GFR Calc Estimated GFR (MDRD) Non-Af Amer 61 mL/min >60 [facility] Comment on above: Non- GFR Calc Troponin I High Sensitivity 4 pg/mL 3.0-54.0 [facility] Comment on above: Please Note: New Maru t Units and Gender Specific Reference Ranges. For more information see Policy Stat Procedure [place] High Sensitivity Troponin (TNIH) and attachments. Platelets bldOrdered By: Weston Dominguez on 06-11-2023 Platelets (Bld) [#/Vol] 249 10*3/uL 150-450 [facility] Serum or plasma albumin shelley urement (mass/volume)Ordered By: Vikram Dominguez on 06-11-2023 Albumin [Mass/Vol] 3.7 g/dL 3.2-5.0 [facility] Serum or plasma calcium shelley urement (mass/volume)Ordered By: Vikram Dominguez on 06-11-2023 Calcium [Mass/Vol] 9.0 mg/dL 8.5-10.1 [facility] Serum or plasma creatinine m easurement (mass/volume)Ordered By: Vikram Dominguez on 06-11-2023 Creatinine [Mass/Vol] 1.05 mg/dL 0.55-1.02 [facility] Comment on above: The validity of the calculated GFR & GFRAA in patients over 70 years has not been determined. Clinical correlation is essential. Serum or plasma urea nitroge n measurement (mass/volume)Ordered By: Vikram Dominguez on 06-11-2023 Urea nitrogen [Mass/Vol] 11 mg/dL 7-18 [facility] Thin prep Papanicolaou smear with manual screeningOrdered By: Vikram Dominguez on 06-11-2023 Thin prep Papanicolaou smear with manual screening 22 U/L 15-37 [facility] Comment on above: Slight Hemolysis, Re sult may be falsely increased. Thin prep Papanicolaou smear with manual screening 4 5-15 [facility] Absolute lymphocyte countOrd ered By: Vikram Dominguez on 05-04-2023 Lymphocytes Auto (Unsp spec) [#/Vol] 3.36 10*3/uL 0.83-4.51 [facility] Basophil percentageOrdered B y: Vikram Dominguez on 05-04-2023 Basophil percentage 0 SEEN /hpf 0-5 [facility] Basophils/100 WBC (Bld) 0.8 % 0-1 [facility] Bilirubin [Mass/Vol] 0.40 mg/dL 0.20-1.00 [facility] Comment on above: For patients on eltr ombopag therapy, use of Dimension [place] TBIL is not recommended. Chloride [Moles/Vol] 108 mmol/L 98-107 [facility] Eosinophils/100 WBC (Bld) 2.9 % 0-5 [facility] Glucose [Mass/Vol] 110 mg/dL 74-106 [facility] Comment on above: Fasting Glucose resu lt from 100 to 125 mg/dL suggests IMPAIRED HOMEOSTASIS per A.D.A. criteria. Neutrophils (Bld) [#/Vol] 3.6 10*3/uL 2.0-7.7 [facility] Neutrophils/100 WBC (Bld) 46.3 % 47-70 [facility] Potassium [Moles/Vol] 3.4 mmol/L 3.5-5.1 [facility] Comment on above: Slight Hemolysis, Re sult may be falsely increased. Protein [Mass/Vol] 7.8 g/dL 6.4-8.2 [facility] Sodium [Moles/Vol] 139 mmol/L 136-145 [facility] WBC (Bld) [#/Vol] 7.8 10*3/uL 4.4-11.0 [facility] Beta hCG serum qualOrdered B y: Vikram Dominguez on 05-04-2023 Beta HCG ( test) Ql Negative [facility] Bilirubin Test strip Ql (U)O rdered By: Vikram Dominguez on 05-04-2023 Bilirubin Ql (U) Negative Negative [facility] Blood erythrocytes count (nu mber/volume)Ordered By: Vikram Dominguez on 05-04-2023 RBC (Bld) [#/Vol] 4.35 10*6/uL 4.2-5.4 [facility] Blood hemoglobin measurement (mass/volume)Ordered By: Vikram Dominguez on 05-04-2023 Hemoglobin (Bld) [Mass/Vol] 13.2 g/dL 12.0-15.0 [facility] Blood lymphocytes/100 leukoc ytesOrdered By: Vikram Dominguez on 05-04-2023 Lymphocytes/100 WBC (Bld) 43.0 % 19-41 [facility] Blood monocytes/100 leukocyt esOrdered By: Vikram Dominguez on 05-04-2023 Monocytes/100 WBC (Bld) 6.4 % 0-10 [facility] Blood platelet mean volumeOr dered By: Vikram Dominguez on 05-04-2023 Platelet mean volume (Bld) [Entitic vol] 11.2 fL 6.2-12.0 [facility] Determination of erythrocyte mean corpuscular volume (MCV)Ordered By: Vikram Dominguez on 05-04-2023 MCV (RBC) [Entitic vol] 92.9 fL 81-99 [facility] Hematocrit Auto (Bld) [Volum e fraction]Ordered By: Vikram Dominguez on 05-04-2023 Hematocrit (Bld) [Volume fraction] 40.4 % 37-47 [facility] Ketones Test strip Ql (U)Ord ered By: Vikram Dominguez on 05-04-2023 Ketones Ql (U) Negative Negative [facility] - Chemistry and C hemistry - challengeOrdered By: Vikram Dominguez on 05-04-2023 ALP [Catalytic activity/Vol] 122 U/L 45-117 [facility] ALT [Catalytic activity/Vol] 25 U/L 13-56 [facility] CO2 [Moles/Vol] 26.0 mmol/L 21.0-32.0 [facility] Globulin (S) [Mass/Vol] 3.8 g/dL 2.2-4.2 [facility] Lipase [Catalytic activity/Vol] 35 U/L 13-75 [facility] Comment on above: Please note:LIPASE r evised reference range effective 22. New Lipase methodology. Expected to produce lower values than the previous assay method. NEW Reference Range: 13 - 75 U/L Urea nitrogen/Creatinine [Mass ratio] 8.4 mg/mg 10-20 [facility] - Hematology and Cell countsOrdered By: Vikram Dominguez on 05-04-2023 Erythrocyte distribution width (RBC) [Entitic vol] 44.4 fL 35.1-43.9 [facility] Erythrocyte distribution width (RBC) [Ratio] 13.1 % 11.6-14.6 [facility] Immature granulocytes/100 WBC (Bld) 0.600 % 0.0-0.9 [facility] Comment on above: IG% - Immature Granu locytes (promyelocytes, myelocytes and metamyelocytes) > 1% indicates that a LEFT SHIFT is Present. MCH (RBC) [Entitic mass] 30.3 pg 27.0-32.0 [facility] Nucleated RBC/100 WBC (Bld) [Ratio] 0 % 0-5 [facility] MCHC Auto (RBC) [Mass/Vol]Or dered By: Vikram Dominguez on 05-04-2023 MCHC (RBC) [Mass/Vol] 32.7 g/dL 32-36 [facility] Mucus LM Ql (Urine sed)Order ed By: Vikram Dominguez on 05-04-2023 Mucus Ql (Urine sed) 0 SEEN /hpf [facility] Nitrite Test strip Ql (U)Ord ered By: Vikram Dominguez on 05-04-2023 Nitrite Ql (U) Negative Negative [facility] No Panel InformationOrdered By: Vikram Dominguez on 05-04-2023 Estimated Creatinine Clearance Calc 46.00 ml/min [facility] Estimated GFR (MDRD) Amer 64 mL/min >60 [facility] Comment on above: GFR Calc Estimated GFR (MDRD) Non-Af Amer 53 mL/min >60 [facility] Comment on above: Non- GFR Calc Platelets bldOrdered By: Weston Dominguez on 05-04-2023 Platelets (Bld) [#/Vol] 248 10*3/uL 150-450 [facility] Protein Test strip Ql (U)Ord ered By: Vikram Dominguez on 05-04-2023 Protein Ql (U) Negative Negative [facility] Serum or plasma albumin shelley urement (mass/volume)Ordered By: Vikram oDminguez on 05-04-2023 Albumin [Mass/Vol] 4.0 g/dL 3.2-5.0 [facility] Serum or plasma albumin/glob ulin mass ratioOrdered By: Vikram Dominguez on 05-04-2023 Albumin/Globulin [Mass ratio] 1.1 {ratio} 0.9-2.4 [facility] Serum or plasma calcium shelley urement (mass/volume)Ordered By: Vikram Dominguez on 05-04-2023 Calcium [Mass/Vol] 8.6 mg/dL 8.5-10.1 [facility] Serum or plasma creatinine m easurement (mass/volume)Ordered By: Vikram Dominguez on 05-04-2023 Creatinine [Mass/Vol] 1.19 mg/dL 0.55-1.02 [facility] Comment on above: The validity of the calculated GFR & GFRAA in patients over 70 years has not been determined. Clinical correlation is essential. Serum or plasma urea nitroge n measurement (mass/volume)Ordered By: Vikram Dominguez on 05-04-2023 Urea nitrogen [Mass/Vol] 10 mg/dL 7-18 [facility] Squamous epithelial cells de tection in urine sediment by light microscopyOrdered By: Vikram Dominguez on 05-04-2023 Epithelial cells.squamous LM Ql (Urine sed) 10-25 SEEN /hpf 5-10 [facility] Thin prep Papanicolaou smear with manual screeningOrdered By: Vikram Dominguez on 05-04-2023 Thin prep Papanicolaou smear with manual screening 13 U/L 15-37 [facility] Comment on above: Slight Hemolysis, Re sult may be falsely increased. Thin prep Papanicolaou smear with manual screening 5 5-15 [facility] Urine blood detectionOrdered By: Vikram Dominguez on 05-04-2023 RBC Ql (U) Negative Negative [facility] RBC Ql (U) 0 SEEN /hpf 0-5 [facility] Urine clarityOrdered By: Weston Dominguez on 05-04-2023 Clarity (U) Sl. Cloudy Clear [facility] Urine color determinationOrd ered By: Vikram Dominguez on 05-04-2023 Color (U) Yellow Yellow [facility] Urine glucose detectionOrder ed By: Vikram Dominguez on 05-04-2023 Glucose Ql (U) Normal mg/dl Normal [facility] Urine leukocyte esterase det ection by dipstickOrdered By: Vikram Dominguez on 05-04-2023 Leukocyte esterase Test strip Ql (U) 25 /ul Negative [facility] Urine pHOrdered By: Vikram pacheco on 05-04-2023 pH (U) 6.0 [pH] 5.0 - 8.0 [facility] Urine sediment bacteria coun t by microscopy (number/high power field)Ordered By: Vikram Dominguez on 05-04-2023 Bacteria LM.HPF (Urine sed) [#/Area] 1 /[HPF] None Seen [facility] Urine specific gravity measu rementOrdered By: Vikram Dominguez on 05-04-2023 Specific gravity (U) [Rel density] 1.010 1.002-1.030 [facility] Urobilinogen Auto test strip Ql (U)Ordered By: Vikram Dominguez on 05-04-2023 Urobilinogen Ql (U) Normal mg/dl Normal [facility] Absolute lymphocyte countOrd ered By: Eleanor Borjas on 04-01-2023 Lymphocytes Auto (Unsp spec) [#/Vol] 3.17 10*3/uL 0.83-4.51 [facility] Basophil percentageOrdered B y: Eleanor Borjas on 04-01-2023 Basophil percentage 0-5 SEEN /hpf 0-5 [facility] Basophils/100 WBC (Bld) 0.6 % 0-1 [facility] Chloride [Moles/Vol] 107 mmol/L 98-107 [facility] Eosinophils/100 WBC (Bld) 3.4 % 0-5 [facility] Glucose [Mass/Vol] 94 mg/dL 74-106 [facility] Neutrophils (Bld) [#/Vol] 2.9 10*3/uL 2.0-7.7 [facility] Neutrophils/100 WBC (Bld) 43.0 % 47-70 [facility] Potassium [Moles/Vol] 3.9 mmol/L 3.5-5.1 [facility] Sodium [Moles/Vol] 139 mmol/L 136-145 [facility] WBC (Bld) [#/Vol] 6.8 10*3/uL 4.4-11.0 [facility] Bilirubin Test strip Ql (U)O rdered By: Eleanor Borjas on 04-01-2023 Bilirubin Ql (U) Negative Negative [facility] Blood erythrocytes count (nu mber/volume)Ordered By: Eleanor Borjas on 04-01-2023 RBC (Bld) [#/Vol] 4.24 10*6/uL 4.2-5.4 [facility] Blood hemoglobin measurement (mass/volume)Ordered By: Eleanor Borjas on 04-01-2023 Hemoglobin (Bld) [Mass/Vol] 12.5 g/dL 12.0-15.0 [facility] Blood lymphocytes/100 leukoc ytesOrdered By: Eleanor Borjas on 04-01-2023 Lymphocytes/100 WBC (Bld) 46.6 % 19-41 [facility] Blood monocytes/100 leukocyt esOrdered By: Eleanor Borjas on 04-01-2023 Monocytes/100 WBC (Bld) 6.0 % 0-10 [facility] Blood platelet mean volumeOr dered By: Eleanor Borjas on 04-01-2023 Platelet mean volume (Bld) [Entitic vol] 10.9 fL 6.2-12.0 [facility] Determination of erythrocyte mean corpuscular volume (MCV)Ordered By: Eleanor Borjas on 04-01-2023 MCV (RBC) [Entitic vol] 94.1 fL 81-99 [facility] Hematocrit Auto (Bld) [Volum e fraction]Ordered By: Eleanor Borjas on 04-01-2023 Hematocrit (Bld) [Volume fraction] 39.9 % 37-47 [facility] Ketones Test strip Ql (U)Ord ered By: Eleanor Borjas on 04-01-2023 Ketones Ql (U) Negative Negative [facility] - Chemistry and C hemistry - challengeOrdered By: Eleanor Borjas on 04-01-2023 CO2 [Moles/Vol] 27.0 mmol/L 21.0-32.0 [facility] Urea nitrogen/Creatinine [Mass ratio] 6.8 mg/mg 10-20 [facility] - Hematology and Cell countsOrdered By: Eleanor Borjas on 04-01-2023 Erythrocyte distribution width (RBC) [Entitic vol] 47.6 fL 35.1-43.9 [facility] Erythrocyte distribution width (RBC) [Ratio] 13.8 % 11.6-14.6 [facility] Immature granulocytes/100 WBC (Bld) 0.400 % 0.0-0.9 [facility] Comment on above: IG% - Immature Granu locytes (promyelocytes, myelocytes and metamyelocytes) > 1% indicates that a LEFT SHIFT is Present. MCH (RBC) [Entitic mass] 29.5 pg 27.0-32.0 [facility] Nucleated RBC/100 WBC (Bld) [Ratio] 0 % 0-5 [facility] MCHC Auto (RBC) [Mass/Vol]Or dered By: Eleanor Borjas on 04-01-2023 MCHC (RBC) [Mass/Vol] 31.3 g/dL 32-36 [facility] Mucus LM Ql (Urine sed)Order ed By: Eleanor Borjas on 04-01-2023 Mucus Ql (Urine sed) 0 SEEN /hpf [facility] Nitrite Test strip Ql (U)Ord ered By: Eleanor Borjas on 04-01-2023 Nitrite Ql (U) Negative Negative [facility] No Panel InformationOrdered By: Eleanor Borjas on 04-01-2023 Estimated Creatinine Clearance Calc 46.78 ml/min [facility] Estimated GFR (MDRD) Amer 65 mL/min >60 [facility] Comment on above: GFR Calc Estimated GFR (MDRD) Non-Af Amer 54 mL/min >60 [facility] Comment on above: Non- GFR Calc Platelets bldOrdered By: Shahla Borjas on 04-01-2023 Platelets (Bld) [#/Vol] 214 10*3/uL 150-450 [facility] Protein Test strip Ql (U)Ord ered By: Eleanor Borjas on 04-01-2023 Protein Ql (U) 15 mg/dl Negative [facility] Serum or plasma calcium shelley urement (mass/volume)Ordered By: Eleanor Borjas on 04-01-2023 Calcium [Mass/Vol] 9.3 mg/dL 8.5-10.1 [facility] Serum or plasma creatinine m easurement (mass/volume)Ordered By: Eleanor Borjas on 04-01-2023 Creatinine [Mass/Vol] 1.17 mg/dL 0.55-1.02 [facility] Comment on above: The validity of the calculated GFR & GFRAA in patients over 70 years has not been determined. Clinical correlation is essential. Serum or plasma urea nitroge n measurement (mass/volume)Ordered By: Eleanor Borjas on 04-01-2023 Urea nitrogen [Mass/Vol] 8 mg/dL 7-18 [facility] Squamous epithelial cells de tection in urine sediment by light microscopyOrdered By: Eleanor Borjas on 04-01-2023 Epithelial cells.squamous LM Ql (Urine sed) 5-10 SEEN /hpf 5-10 [facility] Thin prep Papanicolaou smear with manual screeningOrdered By: Eleanor Borjas on 04-01-2023 Thin prep Papanicolaou smear with manual screening 5 5-15 [facility] Urine blood detectionOrdered By: Eleanor Borjas on 04-01-2023 RBC Ql (U) 10 /ul Negative [facility] RBC Ql (U) 0-5 SEEN /hpf 0-5 [facility] Urine clarityOrdered By: Shahla Borjas on 04-01-2023 Clarity (U) Sl. Cloudy Clear [facility] Urine color determinationOrd ered By: Eleanor Borjas on 04-01-2023 Color (U) Yellow Yellow [facility] Urine glucose detectionOrder ed By: Eleanor Borjas on 04-01-2023 Glucose Ql (U) Normal mg/dl Normal [facility] Urine leukocyte esterase det ection by dipstickOrdered By: Eleanor Borjas on 04-01-2023 Leukocyte esterase Test strip Ql (U) Negative Negative [facility] Urine pHOrdered By: Eleanor Borjas on 04-01-2023 pH (U) 5.0 [pH] 5.0 - 8.0 [facility] Urine sediment bacteria coun t by microscopy (number/high power field)Ordered By: Eleanor Borjas on 04-01-2023 Bacteria LM.HPF (Urine sed) [#/Area] 1 /[HPF] None Seen [facility] Urine specific gravity measu rementOrdered By: Eleanor Borjas on 04-01-2023 Specific gravity (U) [Rel density] 1.025 1.002-1.030 [facility] Urobilinogen Auto test strip Ql (U)Ordered By: Eleanor Borjas on 04-01-2023 Urobilinogen Ql (U) Normal mg/dl Normal [facility] CBC W Auto Differential pane l (Bld)on 03-30-2023 Basophils (Bld) [#/Vol] 0.05 10*3/uL <0.11 k/uL [facility] Basophils/100 WBC (Bld) 0.8 % [facility] Differential cell count method Nom (Bld) Auto [facility] Eosinophils (Bld) [#/Vol] 0.28 10*3/uL <0.46 k/uL [facility] Eosinophils/100 WBC (Bld) 4.6 % [facility] Erythrocyte distribution width (RBC) [Ratio] 14.2 % 11.5 - 15.0 % [facility] Hematocrit (Bld) [Volume fraction] 40.4 % 36.0 - 46.0 % [facility] Hemoglobin (Bld) [Mass/Vol] 12.6 g/dL 11.5 - 15.5 g/dL [facility] Immature granulocytes (Bld) [#/Vol] 0.05 10*3/uL <0.10 k/uL [facility] Immature granulocytes/100 WBC (Bld) 0.8 % [facility] Lymphocytes (Bld) [#/Vol] 2.99 10*3/uL 1.00 - 4.00 k/uL [facility] Lymphocytes/100 WBC (Bld) 49.2 % [facility] MCH (RBC) [Entitic mass] 29.4 pg 26.0 - 34.0 pg [facility] MCHC (RBC) [Mass/Vol] 31.2 g/dL 30.5 - 36.0 g/dL [facility] MCV (RBC) [Entitic vol] 94.4 fL 80.0 - 100.0 fL [facility] Monocytes (Bld) [#/Vol] 0.48 10*3/uL <0.87 k/uL [facility] Monocytes/100 WBC (Bld) 7.9 % [facility] Neutrophils (Bld) [#/Vol] 2.23 10*3/uL 1.45 - 7.50 k/uL [facility] Neutrophils/100 WBC (Bld) 36.7 % [facility] Nucleated RBC (Bld) [#/Vol] <0.01 k/uL [facility] Nucleated RBC/100 WBC (Bld) [Ratio] 0.0 /100 WBC [facility] Platelet mean volume (Bld) [Entitic vol] 11.1 fL 9.0 - 12.7 fL [facility] Platelets (Bld) [#/Vol] 229 10*3/uL 150 - 400 k/uL [facility] RBC (Bld) [#/Vol] 4.28 10*6/uL 3.90 - 5.2 0 m/uL [facility] WBC (Bld) [#/Vol] 6.08 10*3/uL 3.70 - 11. 00 k/uL [facility] LIPASE BLDon 03-30-2023 Lipase [Catalytic activity/Vol] 23 U/L 16 - 61 U/L [facility] .Auto Diffon 03-16-2023 Basophil, Absolute 0.1 10 3/mcL Normal 0.0-0.2 [facility] ([place]) Comment on above: Performed By: #### L IP, BMP, ANEU, MG, LIPID, CBC, HFP, SAGE, ADIFF, GFR ####[place] [address] [place], [place] [address] Basophils/100 WBC (Bld) 0.5 % Normal 0.0-2.5 [facility] ([place]) Comment on above: Performed By: #### L IP, BMP, ANEU, MG, LIPID, CBC, HFP, SAGE, ADIFF, GFR ####[place] [address] [place], [place] [address] Eosinophil, Absolute 0.1 10 3/mcL Normal 0.0-0.4 [facility] ([place]) Comment on above: Performed By: #### L IP, BMP, ANEU, MG, LIPID, CBC, HFP, SAGE, ADIFF, GFR ####[place] [address] [place], [place] [address] Eosinophils/100 WBC (Bld) 0.8 % Normal 0.0-7.0 [facility] ([place]) Comment on above: Performed By: #### L IP, BMP, ANEU, MG, LIPID, CBC, HFP, SAGE, ADIFF, GFR ####[place] [address] [place], [place] [address] Lymphocyte, Absolute 4.0 10 3/mcL High 0.8-3.9 [facility] ([place]) Comment on above: Performed By: #### L IP, BMP, ANEU, MG, LIPID, CBC, HFP, SAGE, ADIFF, GFR ####[place] [address] [place], [place] [address] Lymphocytes/100 WBC (Bld) 36.7 % Normal 10.0-50.0 [facility] ([place]) Comment on above: Performed By: #### L IP, BMP, ANEU, MG, LIPID, CBC, HFP, SAGE, ADIFF, GFR ####[place] [address] [place], [place] [address] Monocyte, Absolute 0.7 10 3/mcL Normal 0.2-1.0 [facility] ([place]) Comment on above: Performed By: #### L IP, BMP, ANEU, MG, LIPID, CBC, HFP, SAGE, ADIFF, GFR ####[place] [address] [place], [place] [address] Monocytes/100 WBC (Bld) 6.3 % Normal 1.7-13.0 [facility] ([place]) Comment on above: Performed By: #### L IP, BMP, ANEU, MG, LIPID, CBC, HFP, SAGE, ADIFF, GFR ####[place] [address] [place], [place] [address] Neutrophils/100 WBC (Bld) 55.7 % Normal 37.0-80.0 [facility] ([place]) Comment on above: Performed By: #### L IP, BMP, ANEU, MG, LIPID, CBC, HFP, SAGE, ADIFF, GFR ####[place] [address] [place], [place] [address] .GFRon 03-16-2023 GFR 61 ml/min/1.73sqm Normal [facility] ([place]) Comment on above: Result Comment: GFR Population mean for , Non- Americans Ages 20-29 = 116 mL/min/1.73 sq.m. Ages 30-39 = 107 mL/min/1.73 sq.m. Ages 40-49 = 99 mL/min/1.73 sq.m. Ages 50-59 = 93 mL/min/1.73 sq.m. Ages 60-69 = 85 mL/min/1.73 sq.m. Ages 70+ = 75 mL/min/1.73 sq.m. Chronic Kidney Disease: Less than 60 mL/min/1.73 square meters End Stage Renal Disease: Less than 15 mL/min/1.73 square meters Performed By: #### L IP, BMP, ANEU, MG, LIPID, CBC, HFP, SAGE, ADIFF, GFR ####[place] [address] [place], [place] [address] GFR Non- 50 ml/min/1.73sqm Normal [facility] ([place]) Comment on above: Result Comment: GFR Population mean for , Non- Americans Ages 20-29 = 116 mL/min/1.73 sq.m. Ages 30-39 = 107 mL/min/1.73 sq.m. Ages 40-49 = 99 mL/min/1.73 sq.m. Ages 50-59 = 93 mL/min/1.73 sq.m. Ages 60-69 = 85 mL/min/1.73 sq.m. Ages 70+ = 75 mL/min/1.73 sq.m. Chronic Kidney Disease: Less than 60 mL/min/1.73 square meters End Stage Renal Disease: Less than 15 mL/min/1.73 square meters Performed By: #### L IP, BMP, ANEU, MG, LIPID, CBC, HFP, SAGE, ADIFF, GFR ####[place] [address] [place], [place] [address] .NEUABSon 03-16-2023 Neutrophil, Absolute 6.1 10 3/mcL Normal 2.9-6.2 [facility] ([place]) Comment on above: Performed By: #### L IP, BMP, ANEU, MG, LIPID, CBC, HFP, SAGE, ADIFF, GFR ####[place] [address] [place], [place] [address] AMYon 03-16-2023 Amylase [Catalytic activity/Vol] 22 U/L Low 25-115 [facility] ([place]) Comment on above: Performed By: #### L IP, BMP, ANEU, MG, LIPID, CBC, HFP, SAGE, ADIFF, GFR ####[place] [address] [place], [place] [address] BMPon 03-16-2023 BUN/Creatinine Ratio 13 ratio Normal 7-27 [facility]) Comment on above: Performed By: #### L IP, BMP, ANEU, MG, LIPID, CBC, HFP, SAGE, ADIFF, GFR ####[place] [address] [place], [place] [address] Calcium [Mass/Vol] 9.3 mg/dL Normal 8.4-10.2 [facility] ([place]) Comment on above: Performed By: #### L IP, BMP, ANEU, MG, LIPID, CBC, HFP, SAGE, ADIFF, GFR ####[place] [address] [place], [place] [address] Chloride [Moles/Vol] 103 mmol/L Normal 98-107 [facility] ([place]) Comment on above: Performed By: #### L IP, BMP, ANEU, MG, LIPID, CBC, HFP, SAGE, ADIFF, GFR ####[place] [address] [place], [place] [address] CO2 [Moles/Vol] 33 mmol/L High 22-29 [facility] ([place]) Comment on above: Performed By: #### L IP, BMP, ANEU, MG, LIPID, CBC, HFP, SAGE, ADIFF, GFR ####[place] [address] [place], [place] [address] Creatinine [Mass/Vol] 1.17 mg/dL High 0.55-1.02 [facility] ([place]) Comment on above: Performed By: #### L IP, BMP, ANEU, MG, LIPID, CBC, HFP, SAGE, ADIFF, GFR ####[place] [address] [place], [place] [address] Electrolyte Balance 5.0 mEq/L Normal 4.0-15.0 [facility] ([place]) Comment on above: Performed By: #### L IP, BMP, ANEU, MG, LIPID, CBC, HFP, SAGE, ADIFF, GFR ####[place] [address] [place], [place] [address] Glucose [Mass/Vol] 89 mg/dL Normal 70-105 [facility] ([place]) Comment on above: Performed By: #### L IP, BMP, ANEU, MG, LIPID, CBC, HFP, SAGE, ADIFF, GFR ####[place] [address] [place], [place] [address] Potassium [Moles/Vol] 4.4 mmol/L Normal 3.5-5.1 [facility] ([place]) Comment on above: Performed By: #### L IP, BMP, ANEU, MG, LIPID, CBC, HFP, SAGE, ADIFF, GFR ####[place] [address] [place], [place] [address] Sodium [Moles/Vol] 141 mmol/L Normal 136-145 [facility] ([place]) Comment on above: Performed By: #### L IP, BMP, ANEU, MG, LIPID, CBC, HFP, SAGE, ADIFF, GFR ####[place] [address] [place], [place] [address] Urea nitrogen [Mass/Vol] 15 mg/dL Normal 7-18 [facility] ([place]) Comment on above: Performed By: #### L IP, BMP, ANEU, MG, LIPID, CBC, HFP, SAGE, ADIFF, GFR ####[address] [address] [place], [place] [address] CBCon 03-16-2023 Erythrocyte distribution width (RBC) [Ratio] 14.8 % High 11.5-14.5 [facility] ([place]) Comment on above: Performed By: #### L IP, BMP, ANEU, MG, LIPID, CBC, HFP, SAGE, ADIFF, GFR ####[place] [address] [place] [id number] Hematocrit (Bld) [Volume fraction] 33.9 % Low 37.0-47.0 [facility] ([place]) Comment on above: Performed By: #### L IP, BMP, ANEU, MG, LIPID, CBC, HFP, SAGE, ADIFF, GFR ####[place] [address] [place] [address] Hgb 11.4 G/dL Low 12.0-16.0 [facility] ([place]) Comment on above: Performed By: #### L IP, BMP, ANEU, MG, LIPID, CBC, HFP, SAGE, ADIFF, GFR ####[place] [address] [place] [id number] MCH (RBC) [Entitic mass] 29.8 pg Normal 27.0-31.2 [facility] ([place]) Comment on above: Performed By: #### L IP, BMP, ANEU, MG, LIPID, CBC, HFP, SAGE, ADIFF, GFR ####[place] [address] [place] [address] MCHC 33.7 G/dL Normal 33.0-37.0 [facility] ([place]) Comment on above: Performed By: #### L IP, BMP, ANEU, MG, LIPID, CBC, HFP, SAGE, ADIFF, GFR ####[place] [address] [place] [id number] MCV (RBC) [Entitic vol] 88.5 fL Normal 80.0-94.0 [facility] ([place]) Comment on above: Performed By: #### L IP, BMP, ANEU, MG, LIPID, CBC, HFP, SAGE, ADIFF, GFR ####[place] [address] [place], [place] [address] Platelet 223 10 3/mcL Normal 130-400 [facility] ([place]) Comment on above: Performed By: #### L IP, BMP, ANEU, MG, LIPID, CBC, HFP, SAGE, ADIFF, GFR ####[place] [address] [place], [place] [address] Platelet mean volume (Bld) [Entitic vol] 8.4 fL Normal 7.4-10.4 [facility] ([place]) Comment on above: Performed By: #### L IP, BMP, ANEU, MG, LIPID, CBC, HFP, SAGE, ADIFF, GFR ####[place] [address] [place], [place] [address] RBC 3.83 10 6/mcL Low 4.20-5.40 [facility] ([place]) Comment on above: Performed By: #### L IP, BMP, ANEU, MG, LIPID, CBC, HFP, SAGE, ADIFF, GFR ####[place] [address] [place], [place] [address] WBC 10.9 10 3/mcL High 4.6-10.8 [facility] ([place]) Comment on above: Performed By: #### L IP, BMP, ANEU, MG, LIPID, CBC, HFP, SAGE, ADIFF, GFR ####[place] [address] [place], [place] [address] HFPon 03-16-2023 Bili Indirect 0.5 mg/dL Normal [facility] ([place]) Comment on above: Performed By: #### L IP, BMP, ANEU, MG, LIPID, CBC, HFP, SAGE, ADIFF, GFR ####[place] [address] [place], [place] [address] Albumin Level 3.3 G/dL Low 3.5-5.0 [facility] ([place]) Comment on above: Performed By: #### L IP, BMP, ANEU, MG, LIPID, CBC, HFP, SAGE, ADIFF, GFR ####[place] [address] [place], [place] [address] Albumin/Globulin [Mass ratio] 1.2 {ratio} Normal 1.1-2.5 [facility] ([place]) Comment on above: Performed By: #### L IP, BMP, ANEU, MG, LIPID, CBC, HFP, SAGE, ADIFF, GFR ####[place] [address] [place], [place] [address] ALP [Catalytic activity/Vol] 96 U/L Normal 40-135 [facility] ([place]) Comment on above: Performed By: #### L IP, BMP, ANEU, MG, LIPID, CBC, HFP, SAGE, ADIFF, GFR ####[place] [address] [place], [place] [address] ALT [Catalytic activity/Vol] 14 U/L Normal 14-59 [facility] ([place]) Comment on above: Performed By: #### L IP, BMP, ANEU, MG, LIPID, CBC, HFP, SAGE, ADIFF, GFR ####[place] [address] [place], [place] [address] AST [Catalytic activity/Vol] 8 U/L Low 10-40 [facility] ([place]) Comment on above: Performed By: #### L IP, BMP, ANEU, MG, LIPID, CBC, HFP, SAGE, ADIFF, GFR ####[place] [address] [place], [place] [address] Bili Direct 0.1 mg/dL Normal 0.0-0.2 [facility] ([place]) Comment on above: Result Comment: Use of this assay is not recommended for patients undergoing treatment with eltrombopag due to the potential for falsely elevated results. Performed By: #### L IP, BMP, ANEU, MG, LIPID, CBC, HFP, SAGE, ADIFF, GFR ####[place] [address] [place], [place] [address] Bili Total 0.6 mg/dL Normal 0.2-1.0 [facility] ([place]) Comment on above: Result Comment: Use of this assay is not recommended for patients undergoing treatment with eltrombopag due to the potential for falsely elevated results. Performed By: #### L IP, BMP, ANEU, MG, LIPID, CBC, HFP, SAGE, ADIFF, GFR ####[place] [address] [place], [place] [address] Globulin 2.8 G/dL Normal [facility] ([place]) Comment on above: Performed By: #### L IP, BMP, ANEU, MG, LIPID, CBC, HFP, SAGE, ADIFF, GFR ####[place] [address] [place], [place] [address] Total Protein 6.1 G/dL Low 6.4-8.2 [facility] ([place]) Comment on above: Performed By: #### L IP, BMP, ANEU, MG, LIPID, CBC, HFP, SAGE, ADIFF, GFR ####[place] [address] [place], [place] [address] LABORATORYOrdered By: SYSTEM SYSTEM on 03-16-2023 Albumin BCP dye [Mass/Vol] 3.3 G/dL Invalid Interpretation Code 3.5 - 5.0 G/dL AO ADM SS Albumin/Globulin [Mass ratio] 1.2 {ratio} Invalid Interpretation Code 1.1 - 2.5 ratio AO ADM SS ALP [Catalytic activity/Vol] 96 U/L Invalid Interpretation Code 40 - 135 U/L AO ADM SS ALT With P-5'-P [Catalytic activity/Vol] 14 U/L Invalid Interpretation Code 14 - 59 U/L AO ADM SS Amylase [Catalytic activity/Vol] 22 U/L Invalid Interpretation Code 25 - 115 U/L AO ADM SS AST With P-5'-P [Catalytic activity/Vol] 8 U/L Invalid Interpretation Code 10 - 40 U/L AO ADM SS Basophil, Absolute 0.1 103/mcL Invalid Interpretation Code 0.0 - 0.2 10^3/mcL AO Workflow SS Basophils/100 WBC (Bld) 0.5 % Invalid Interpretation Code 0.0 - 2.5 % AO Workflow SS Bilirubin [Mass/Vol] 0.6 mg/dL Invalid Interpretation Code 0.2 - 1.0 mg/dL AO ADM SS Bilirubin.direct [Mass/Vol] 0.1 mg/dL Invalid Interpretation Code 0.0 - 0.2 mg/dL AO ADM SS Bilirubin.direct [Mass/Vol] 0.5 mg/dL Invalid Interpretation Code AO Chemistry S Calcium [Mass/Vol] 9.3 mg/dL Invalid Interpretation Code 8.4 - 10.2 mg/dL AO ADM SS Chloride [Moles/Vol] 103 mmol/L Invalid Interpretation Code 98 - 107 mmol/L AO ADM SS CO2 [Moles/Vol] 33 mmol/L Invalid Interpretation Code 22 - 29 mmol/L AO ADM SS Creatinine [Mass/Vol] 1.17 mg/dL Invalid Interpretation Code 0.55 - 1.02 mg/dL AO ADM SS Electrolyte Balance 5.0 mEq/L Invalid Interpretation Code 4.0 - 15.0 mEq/L AO ADM SS Eosinophil, Absolute 0.1 103/mcL Invalid Interpretation Code 0.0 - 0.4 10^3/mcL AO Workflow SS Eosinophils/100 WBC (Bld) 0.8 % Invalid Interpretation Code 0.0 - 7.0 % AO Workflow SS Erythrocyte distribution width (RBC) [Ratio] 14.8 % Invalid Interpretation Code 11.5 - 14.5 % AO Workflow SS GFR/1.73 sq M.predicted among blacks MDRD (S/P/Bld) [Vol rate/Area] 61 ml/min/1.73sqm Invalid Interpretation Code AO Chemistry S GFR/1.73 sq M.predicted among non-blacks MDRD (S/P/Bld) [Vol rate/Area] 50 ml/min/1.73sqm Invalid Interpretation Code AO Chemistry S Globulin 2.8 G/dL Invalid Interpretation Code AO ADM SS Glucose [Mass/Vol] 89 mg/dL Invalid Interpretation Code 70 - 105 mg/dL AO ADM SS Hematocrit (Bld) [Volume fraction] 33.9 % Invalid Interpretation Code 37.0 - 47.0 % AO Workflow SS Hemoglobin (Bld) [Mass/Vol] 11.4 G/dL Invalid Interpretation Code 12.0 - 16.0 G/dL AO Workflow SS Lipase [Catalytic activity/Vol] 27 U/L Invalid Interpretation Code 16 - 77 U/L AO ADM SS Lymphocyte, Absolute 4.0 103/mcL Invalid Interpretation Code 0.8 - 3.9 10^3/mcL AO Workflow SS Lymphocytes/100 WBC (Bld) 36.7 % Invalid Interpretation Code 10.0 - 50.0 % AO Workflow SS Magnesium [Mass/Vol] 1.9 mg/dL Invalid Interpretation Code 1.8 - 2.4 mg/dL AO ADM SS MCH (RBC) [Entitic mass] 29.8 pg Invalid Interpretation Code 27.0 - 31.2 pg AO Workflow SS MCHC 33.7 G/dL Invalid Interpretation Code 33.0 - 37.0 G/dL AO Workflow SS MCV (RBC) [Entitic vol] 88.5 fL Invalid Interpretation Code 80.0 - 94.0 fL AO Workflow SS Monocyte, Absolute 0.7 103/mcL Invalid Interpretation Code 0.2 - 1.0 10^3/mcL AO Workflow SS Monocytes/100 WBC (Bld) 6.3 % Invalid Interpretation Code 1.7 - 13.0 % AO Workflow SS Neutrophil, Absolute 6.1 103/mcL Invalid Interpretation Code 2.9 - 6.2 10^3/mcL AO Workflow SS Neutrophils/100 WBC (Bld) 55.7 % Invalid Interpretation Code 37.0 - 80.0 % AO Workflow SS Platelet mean volume (Bld) [Entitic vol] 8.4 fL Invalid Interpretation Code 7.4 - 10.4 fL AO Workflow SS Platelets (Bld) [#/Vol] 223 103/mcL Invalid Interpretation Code 130 - 400 10^3/mcL AO Workflow SS Potassium [Moles/Vol] 4.4 mmol/L Invalid Interpretation Code 3.5 - 5.1 mmol/L AO ADM SS Protein [Mass/Vol] 6.1 G/dL Invalid Interpretation Code 6.4 - 8.2 G/dL AO ADM SS RBC (Bld) [#/Vol] 3.83 106/mcL Invalid Interpretation Code 4.20 - 5.40 10^6/mcL AO Workflow SS Sodium [Moles/Vol] 141 mmol/L Invalid Interpretation Code 136 - 145 mmol/L AO ADM SS Urea nitrogen [Mass/Vol] 15 mg/dL Invalid Interpretation Code 7 - 18 mg/dL AO ADM SS Urea nitrogen/Creatinine [Mass ratio] 13 ratio Invalid Interpretation Code 7 - 27 ratio AO ADM SS WBC (Bld) [#/Vol] 10.9 103/mcL Invalid Interpretation Code 4.6 - 10.8 10^3/mcL AO Workflow SS LABORATORYOrdered By: Flora Hassan on 03-16-2023 Cholesterol [Mass/Vol] 235 mg/dL Invalid Interpretation Code 0 - 200 mg/dL AO ADM SS Cholesterol in HDL [Mass/Vol] 43 mg/dL Invalid Interpretation Code 40 - 60 mg/dL AO ADM SS Cholesterol in LDL [Mass/Vol] 136 mg/dL Invalid Interpretation Code 0 - 130 mg/dL AO ADM SS Triglyceride [Mass/Vol] 281 mg/dL Invalid Interpretation Code 0 - 150 mg/dL AO ADM SS LIPon 03-16-2023 Lipase Level 27 U/L Normal 16-77 [facility] ([place]) Comment on above: Performed By: #### L IP, BMP, ANEU, MG, LIPID, CBC, HFP, SAGE, ADIFF, GFR ####[address] [place], [place] [address] LIPIDon 03-16-2023 Cholesterol [Mass/Vol] 235 mg/dL High 0-200 [facility] ([place]) Comment on above: Result Comment: Chol esterol Reference Interval: Less than 200 Desirable 200-239 Borderline high risk 240 and above High risk Performed By: #### L IP, BMP, ANEU, MG, LIPID, CBC, HFP, SAGE, ADIFF, GFR ####[address] [place], [place] [address] Cholesterol in HDL [Mass/Vol] 43 mg/dL Normal 40-60 [facility] ([place]) Comment on above: Performed By: #### L IP, BMP, ANEU, MG, LIPID, CBC, HFP, SAGE, ADIFF, GFR ####[address] [place], [place] [address] Cholesterol in LDL [Mass/Vol] 136 mg/dL High 0-130 [facility] ([place]) Comment on above: Performed By: #### L IP, BMP, ANEU, MG, LIPID, CBC, HFP, SAGE, ADIFF, GFR ####[address] [place], [place] [address] Triglyceride [Mass/Vol] 281 mg/dL High 0-150 [facility] ([place]) Comment on above: Result Comment: Trig lyceride Reference Interval: Less than 150 Normal 150-199 Borderline high risk 200-499 High risk 500 or higher Very high risk Performed By: #### L IP, BMP, ANEU, MG, LIPID, CBC, HFP, SAGE, ADIFF, GFR ####[address] [place], [place] [address] MGon 03-16-2023 Magnesium [Mass/Vol] 1.9 mg/dL Normal 1.8-2.4 [facility] ([place]) Comment on above: Performed By: #### L IP, BMP, ANEU, MG, LIPID, CBC, HFP, SAGE, ADIFF, GFR ####[address] [place], [place] [address] MRI MRCPon 03-16-2023 MRI MRCP ORIGINAL EXAMINATION: MRCP03/16/2023 9:45 am TECHNIQUE: MRCP was performed without the administration of intravenous contrast. COMPARISON: CT abdomen pelvis 02/26/2023 HISTORY: ORDERING SYSTEM PROVIDED HISTORY: Reason for Exam: Pancreatitis FINDINGS: The gallbladder is surgically absent. There is no intrahepatic or extrahepatic biliary ductal dilation. The common bile duct (CBD) measures 4 mm. There is no filling defect, abrupt cutoff or abnormal tapering to suggest choledocholithiasis, intrinsic or extrinsic lesion or stricture of the CBD. Multiple hepatic cysts measuring up to 2.8 cm. There is no edema involving the pancreas or peripancreatic tissues. No areas of peripancreatic inflammation. There is no pancreatic duct dilation. IMPRESSION: 1. No choledocholithiasis. 2. Resolution of previously seen mild pancreatitis. I have personally reviewed the images of this examination and agree with the resident's findings and interpretation. Interpreted by: Ruben Emmanuel MD Preliminary Report By: Allie Sapp Electronically signed By Ruben Emmanuel MD Dictated Date: 03/16/2023 10:54:12 AM Prelim Date: 03/16/2023 4:17:14 PM Sign Date: 03/16/2023 4:17:14 PM Ordering Provider: PIERCE MARS Normal [facility] ([place]) CBC W Auto Differential pane l (Bld)on 03-11-2023 Basophils (Bld) [#/Vol] 0.08 10*3/uL <0.11 k/uL [facility] Basophils/100 WBC (Bld) 0.8 % [facility] Differential cell count method Nom (Bld) Auto [facility] Eosinophils (Bld) [#/Vol] 0.34 10*3/uL <0.46 k/uL [facility] Eosinophils/100 WBC (Bld) 3.6 % [facility] Erythrocyte distribution width (RBC) [Ratio] 14.2 % 11.5 - 15.0 % [facility] Hematocrit (Bld) [Volume fraction] 39.3 % 36.0 - 46.0 % [facility] Hemoglobin (Bld) [Mass/Vol] 12.6 g/dL 11.5 - 15.5 g/dL [facility] Immature granulocytes (Bld) [#/Vol] 0.11 10*3/uL High <0.10 k/uL [facility] Immature granulocytes/100 WBC (Bld) 1.2 % [facility] Lymphocytes (Bld) [#/Vol] 3.28 10*3/uL 1.00 - 4.00 k/uL [facility] Lymphocytes/100 WBC (Bld) 34.3 % [facility] MCH (RBC) [Entitic mass] 29.9 pg 26.0 - 34.0 pg [facility] MCHC (RBC) [Mass/Vol] 32.1 g/dL 30.5 - 36.0 g/dL [facility] MCV (RBC) [Entitic vol] 93.1 fL 80.0 - 100.0 fL [facility] Monocytes (Bld) [#/Vol] 0.62 10*3/uL <0.87 k/uL [facility] Monocytes/100 WBC (Bld) 6.5 % [facility] Neutrophils (Bld) [#/Vol] 5.12 10*3/uL 1.45 - 7.50 k/uL [facility] Neutrophils/100 WBC (Bld) 53.6 % [facility] Nucleated RBC (Bld) [#/Vol] <0.01 k/uL [facility] Nucleated RBC/100 WBC (Bld) [Ratio] 0.0 /100 WBC [facility] Platelet mean volume (Bld) [Entitic vol] 11.1 fL 9.0 - 12.7 fL [facility] Platelets (Bld) [#/Vol] 227 10*3/uL 150 - 400 k/uL [facility] RBC (Bld) [#/Vol] 4.22 10*6/uL 3.90 - 5.2 0 m/uL [facility] WBC (Bld) [#/Vol] 9.55 10*3/uL 3.70 - 11. 00 k/uL [facility] XR CHEST 2V FRONTAL/LATon [facility] XR Chest PA and Lateralon IMPRESSION: No significant acute radiographic abnormality of the chest. Physical Therapy Nurse: PSCB Transcribe Date/Time: Mar 09 2023 5:58P Dictated by : RUBEN ALBERT MD This examination was interpreted and the report reviewed and electronically signed by: RUBEN ALBERT MD on Mar 09 2023 5:59PM EST DIVISION OF RADIOLOGY * * *Final Report* * * DATE OF EXAM: Mar 09 2023 5:52PM WOX 5291 - XR CHEST 2V FRONTAL/LAT / PROCEDURE REASON: Acute cough * * * * Physician Interpretation * * * * EXAMINATION: 2 VIEW CHEST RADIOGRAPH (PA/AP AND LATERAL) Clinical History: Acute cough Comparison: 05/12/2022 RESULT: Lines, tubes, and devices: None. Lungs and pleura: No confluent infiltrate, large pleural effusion or pneumothorax. Cardiomediastinal silhouette: Within normal limits. Other: No acute bony abnormality identified. DIVISION OF RADIOLOGY Provider, [facility] - 03/09/2023 * * *Final Report* * * DATE OF EXAM: Mar 09 2023 5:52PM WOX 5291 - XR CHEST 2V FRONTAL/LAT / PROCEDURE REASON: Acute cough * * * * Physician Interpretation * * * * EXAMINATION: 2 VIEW CHEST RADIOGRAPH (PA/AP AND LATERAL) Clinical History: Acute cough Comparison: 05/12/2022 RESULT: Lines, tubes, and devices: None. Lungs and pleura: No confluent infiltrate, large pleural effusion or pneumothorax. Cardiomediastinal silhouette: Within normal limits. Other: No acute bony abnormality identified. IMPRESSION IMPRESSION: No significant acute radiographic abnormality of the chest. Physical Therapy Nurse: PSCB Transcribe Date/Time: Mar 09 2023 5:58P Dictated by : RUBEN ALBERT MD This examination was interpreted and the report reviewed and electronically signed by: RUBEN ALBERT MD on Mar 09 2023 5:59PM EST [facility] Radiology Study observation (narrative) Melissa [facility] XR Chest PA and LateralOrder ed By: [facility] Provider on 03-09-2023 [facility] .Auto Diffon 02-28-2023 Basophil, Absolute 0.1 10 3/mcL Normal 0.0-0.3 [facility] ([place]) Comment on above: Performed By: #### U AMIC, UA #### [address] [address] Basophils/100 WBC (Bld) 0.9 % Normal 0.0-2.5 [facility] ([place]) Comment on above: Performed By: #### U AMIC, UA #### [address] [address] Eosinophil, Absolute 0.2 10 3/mcL Normal 0.0-0.7 [facility] ([place]) Comment on above: Performed By: #### U AMIC, UA #### [address] [address] Eosinophils/100 WBC (Bld) 3.3 % Normal 0.0-6.0 [facility] ([place]) Comment on above: Performed By: #### U AMIC, UA #### [address] [address] Lymphocyte, Absolute 2.5 10 3/mcL Normal 0.9-4.3 [facility] ([place]) Comment on above: Performed By: #### U AMIC, UA #### [address] [address] Lymphocytes/100 WBC (Bld) 35.9 % Normal 20.0-40.0 [facility] ([place]) Comment on above: Performed By: #### U AMIC, UA #### [address] [address] Monocyte, Absolute 0.5 10 3/mcL Normal 0.1-1.4 [facility] ([place]) Comment on above: Performed By: #### U AMIC, UA #### [address] [address] Monocytes/100 WBC (Bld) 7.8 % Normal 2.0-13.0 [facility] ([place]) Comment on above: Performed By: #### U AMIC, UA #### [address] [address] Neutrophils/100 WBC (Bld) 52.1 % Normal 50.0-75.0 [facility] ([place]) Comment on above: Performed By: #### U AMIC, UA #### [address] [address] .GFRon 02-28-2023 GFR >60 Normal [facility] ([place]) Comment on above: Result Comment: GFR Population mean for , Non- Americans Ages 20-29 = 116 mL/min/1.73 sq.m. Ages 30-39 = 107 mL/min/1.73 sq.m. Ages 40-49 = 99 mL/min/1.73 sq.m. Ages 50-59 = 93 mL/min/1.73 sq.m. Ages 60-69 = 85 mL/min/1.73 sq.m. Ages 70+ = 75 mL/min/1.73 sq.m. Chronic Kidney Disease: Less than 60 mL/min/1.73 square meters End Stage Renal Disease: Less than 15 mL/min/1.73 square meters Performed By: #### P RO #### [address] [address] GFR Non- >60 Normal [facility] ([place]) Comment on above: Result Comment: GFR Population mean for , Non- Americans Ages 20-29 = 116 mL/min/1.73 sq.m. Ages 30-39 = 107 mL/min/1.73 sq.m. Ages 40-49 = 99 mL/min/1.73 sq.m. Ages 50-59 = 93 mL/min/1.73 sq.m. Ages 60-69 = 85 mL/min/1.73 sq.m. Ages 70+ = 75 mL/min/1.73 sq.m. Chronic Kidney Disease: Less than 60 mL/min/1.73 square meters End Stage Renal Disease: Less than 15 mL/min/1.73 square meters Performed By: #### P RO #### [address] [address] .NEUABSon 02-28-2023 Neutrophil, Absolute 3.6 10 3/mcL Normal 2.3-8.1 [facility] ([place]) Comment on above: Performed By: #### U AMIC, UA #### [address] [address] BMPon 02-28-2023 BUN/Creatinine Ratio 12.1 ratio Normal 10.0-22.0 [facility] ([place]) Comment on above: Performed By: #### P RO #### [address] [address] Calcium [Mass/Vol] 9.1 mg/dL Normal 8.7-10.4 [facility] ([place]) Comment on above: Performed By: #### P RO #### [address] [address] Chloride [Moles/Vol] 106 mmol/L Normal 98-110 [facility] ([place]) Comment on above: Performed By: #### P RO #### [address] [address] CO2 [Moles/Vol] 28 mmol/L Normal 22-32 [facility] ([place]) Comment on above: Performed By: #### P RO #### [address] [address] Creatinine [Mass/Vol] 0.99 mg/dL Normal 0.50-1.20 [facility] ([place]) Comment on above: Performed By: #### P RO #### [address] [address] Electrolyte Balance 8.0 mEq/L Normal 4.0-15.0 [facility] ([place]) Comment on above: Performed By: #### P RO #### [address] [address] Glucose [Mass/Vol] 90 mg/dL Normal 70-110 [facility] ([place]) Comment on above: Performed By: #### P RO #### [address] [address] Potassium [Moles/Vol] 4.5 mmol/L Normal 3.5-5.0 [facility] ([place]) Comment on above: Result Comment: Spec imen slightly hemolyzed. Performed By: #### P RO #### [place] [address] Sodium [Moles/Vol] 142 mmol/L Normal 136-145 [facility] ([place]) Comment on above: Performed By: #### P RO #### [place] [address] Urea nitrogen [Mass/Vol] 12.0 mg/dL Normal 8.0-22.0 [facility] ([place]) Comment on above: Performed By: #### P RO #### [place] [address] CBCon 02-28-2023 Erythrocyte distribution width (RBC) [Ratio] 14.6 % Normal 11.5-15.5 [facility] ([place]) Comment on above: Performed By: #### P RO #### [place] [id number] Hematocrit (Bld) [Volume fraction] 34.2 % Normal 34.0-46.0 [facility] ([place]) Comment on above: Performed By: #### P RO #### [place] [address] Hgb 11.3 G/dL Low 12.0-16.0 [facility] ([place]) Comment on above: Performed By: #### P RO #### [place] [id number] MCH (RBC) [Entitic mass] 29.7 pg Normal 27.0-33.0 [facility] ([place]) Comment on above: Performed By: #### P RO #### [place] [id number] MCHC 33.0 G/dL Normal 32.0-36.0 [facility] ([place]) Comment on above: Performed By: #### P RO #### [place] [id number] MCV (RBC) [Entitic vol] 90.1 fL Normal 80.0-99.0 [facility] ([place] Comment on above: Performed By: #### P RO #### [place] [id number] Platelet 159 10 3/mcL Normal 150-450 [facility] ([place]) Comment on above: Performed By: #### P RO #### [address] [address] Platelet mean volume (Bld) [Entitic vol] 10.2 fL Normal 6.6-10.5 [facility] ([place] Comment on above: Performed By: #### P RO #### [address] [address] RBC 3.80 10 6/mcL Low 4.10-5.30 [facility] ([place] Comment on above: Performed By: #### P RO #### [address] [address] WBC 6.9 10 3/mcL Normal 4.5-10.8 [facility] ([place] Comment on above: Performed By: #### P RO #### [address] [address] .Auto Diffon 02-27-2023 Basophil, Absolute 0.0 10 3/mcL Normal 0.0-0.3 [facility] ([place]) Comment on above: Performed By: #### P RO #### [address] [address] Basophils/100 WBC (Bld) 0.4 % Normal 0.0-2.5 [facility] ([place] Comment on above: Performed By: #### P RO #### [address] [address] Eosinophil, Absolute 0.2 10 3/mcL Normal 0.0-0.7 [facility] ([place] Comment on above: Performed By: #### P RO #### [address] [address] Eosinophils/100 WBC (Bld) 2.7 % Normal 0.0-6.0 [facility] ([place]) Comment on above: Performed By: #### P RO #### [address] [address] Lymphocyte, Absolute 2.7 10 3/mcL Normal 0.9-4.3 [facility] ([place]) Comment on above: Performed By: #### P RO #### [facility] [address] [place] [address] Lymphocytes/100 WBC (Bld) 43.2 % High 20.0-40.0 [facility] ([place]) Comment on above: Performed By: #### P RO #### [facility] [address] [place] [address] Monocyte, Absolute 0.5 10 3/mcL Normal 0.1-1.4 [facility] ([place]) Comment on above: Performed By: #### P RO #### [address] [address] Monocytes/100 WBC (Bld) 7.8 % Normal 2.0-13.0 [facility] ([place] Comment on above: Performed By: #### P RO #### [address] [address] Neutrophils/100 WBC (Bld) 45.9 % Low 50.0-75.0 [facility] ([place]) Comment on above: Performed By: #### P RO #### [address] [address] .GFRon 02-27-2023 GFR >60 Normal [facility] ([place]) Comment on above: Result Comment: GFR Population mean for , Non- Americans Ages 20-29 = 116 mL/min/1.73 sq.m. Ages 30-39 = 107 mL/min/1.73 sq.m. Ages 40-49 = 99 mL/min/1.73 sq.m. Ages 50-59 = 93 mL/min/1.73 sq.m. Ages 60-69 = 85 mL/min/1.73 sq.m. Ages 70+ = 75 mL/min/1.73 sq.m. Chronic Kidney Disease: Less than 60 mL/min/1.73 square meters End Stage Renal Disease: Less than 15 mL/min/1.73 square meters Performed By: #### P RO #### [address] [address] GFR Non- >60 Normal [facility] ([place]) Comment on above: Result Comment: GFR Population mean for , Non- Americans Ages 20-29 = 116 mL/min/1.73 sq.m. Ages 30-39 = 107 mL/min/1.73 sq.m. Ages 40-49 = 99 mL/min/1.73 sq.m. Ages 50-59 = 93 mL/min/1.73 sq.m. Ages 60-69 = 85 mL/min/1.73 sq.m. Ages 70+ = 75 mL/min/1.73 sq.m. Chronic Kidney Disease: Less than 60 mL/min/1.73 square meters End Stage Renal Disease: Less than 15 mL/min/1.73 square meters Performed By: #### P RO #### [address] [address] .NEUABSon 02-27-2023 Neutrophil, Absolute 2.9 10 3/mcL Normal 2.3-8.1 [facility] ([place]) Comment on above: Performed By: #### P RO #### [place] [id number] CBCon 02-27-2023 Erythrocyte distribution width (RBC) [Ratio] 14.9 % Normal 11.5-15.5 [facility] ([place]) Comment on above: Performed By: #### P RO #### [place] [address] Hematocrit (Bld) [Volume fraction] 33.6 % Low 34.0-46.0 [facility] ([place] Comment on above: Performed By: #### P RO #### [place] [address] Hgb 11.1 G/dL Low 12.0-16.0 [facility] ([place] Comment on above: Performed By: #### P RO #### [address] [address] MCH (RBC) [Entitic mass] 29.8 pg Normal 27.0-33.0 [facility] ([place] Comment on above: Performed By: #### P RO #### [place] [id number] MCHC 33.0 G/dL Normal 32.0-36.0 [facility] ([place] Comment on above: Performed By: #### P RO #### [place] [id number] MCV (RBC) [Entitic vol] 90.5 fL Normal 80.0-99.0 [facility] ([place] Comment on above: Performed By: #### P RO #### [place] [id number] Platelet 177 10 3/mcL Normal 150-450 [facility] ([place]) Comment on above: Performed By: #### P RO #### [place] [id number] Platelet mean volume (Bld) [Entitic vol] 9.8 fL Normal 6.6-10.5 [facility] ([place]) Comment on above: Performed By: #### P RO #### [place] [id number] RBC 3.71 10 6/mcL Low 4.10-5.30 [facility] ([place]) Comment on above: Performed By: #### P RO #### [place] [id number] WBC 6.3 10 3/mcL Normal 4.5-10.8 [facility] ([place]) Comment on above: Performed By: #### P RO #### [place] [address] CMPon 02-27-2023 Albumin Level 3.6 G/dL Normal 3.2-4.8 [facility] ([place]) Comment on above: Performed By: #### P RO #### [place] [address] Albumin/Globulin [Mass ratio] 1.4 {ratio} Normal 0.9-1.6 [facility] ([place]) Comment on above: Performed By: #### P RO #### [place] [id number] ALP [Catalytic activity/Vol] 111 U/L Normal 38-126 [facility] ([place]) Comment on above: Performed By: #### P RO #### [place] [id number] ALT [Catalytic activity/Vol] 18 U/L Normal 10-49 [facility] ([place]) Comment on above: Performed By: #### P RO #### [place] [id number] AST [Catalytic activity/Vol] 14 U/L Normal 8-34 [facility] ([place]) Comment on above: Performed By: #### P RO #### [place] [id number] Bili Total 1.00 mg/dL Normal 0.20-1.20 [facility] ([place]) Comment on above: Result Comment: Use of this assay is not recommended for patients undergoing treatment with eltrombopag due to the potential for falsely elevated results. Performed By: #### P RO #### [place] [address] BUN/Creatinine Ratio 17.2 ratio Normal 10.0-22.0 [facility] ([place]) Comment on above: Performed By: #### P RO #### [place] [address] Calcium [Mass/Vol] 8.7 mg/dL Normal 8.7-10.4 [facility] ([place]) Comment on above: Performed By: #### P RO #### [place] [id number] Chloride [Moles/Vol] 103 mmol/L Normal 98-110 [facility] ([place]) Comment on above: Performed By: #### P RO #### [place] [id number] CO2 [Moles/Vol] 29 mmol/L Normal 22-32 [facility] ([place]) Comment on above: Performed By: #### P RO #### [place] [id number] Creatinine [Mass/Vol] 0.99 mg/dL Normal 0.50-1.20 [facility] ([place]) Comment on above: Performed By: #### P RO #### [place] [id number] Electrolyte Balance 6.0 mEq/L Normal 4.0-15.0 [facility] ([place]) Comment on above: Performed By: #### P RO #### [address] [address] Globulin 2.6 G/dL Normal 1.5-3.8 [facility] ([place]) Comment on above: Performed By: #### P RO #### [address] [address] Glucose [Mass/Vol] 97 mg/dL Normal 70-110 [facility] ([place]) Comment on above: Performed By: #### P RO #### [address] [address] Potassium [Moles/Vol] 4.1 mmol/L Normal 3.5-5.0 [facility] ([place]) Comment on above: Performed By: #### P RO #### [address] [address] Sodium [Moles/Vol] 138 mmol/L Normal 136-145 [facility] ([place]) Comment on above: Performed By: #### P RO #### [address] [address] Total Protein 6.2 G/dL Normal 5.7-8.2 [facility] ([place]) Comment on above: Result Comment: No te - New Reference Range in effect 20 Performed By: #### P RO #### [address] [address] Urea nitrogen [Mass/Vol] 17.0 mg/dL Normal 8.0-22.0 [facility] ([place]) Comment on above: Performed By: #### P RO #### [address] [address] .Auto Diffon 02-26-2023 Basophil, Absolute 0.0 10 3/mcL Normal 0.0-0.3 [facility] ([place]) Comment on above: Performed By: #### C MP, ANEU, GFR, CBC, ADIFF ####[address] [address] Basophils/100 WBC (Bld) 0.5 % Normal 0.0-2.5 [facility] ([place]) Comment on above: Performed By: #### C MP, ANEU, GFR, CBC, ADIFF ####[address] [address] Eosinophil, Absolute 0.1 10 3/mcL Normal 0.0-0.7 [facility] ([place]) Comment on above: Performed By: #### C MP, ANEU, GFR, CBC, ADIFF ####[address] [address] Eosinophils/100 WBC (Bld) 1.9 % Normal 0.0-6.0 [facility] ([place]) Comment on above: Performed By: #### C MP, ANEU, GFR, CBC, ADIFF ####[address] [address] Lymphocyte, Absolute 3.2 10 3/mcL Normal 0.9-4.3 [facility] ([place] Comment on above: Performed By: #### C MP, ANEU, GFR, CBC, ADIFF ####[address] [address] Lymphocytes/100 WBC (Bld) 43.7 % High 20.0-40.0 [facility] ([place]) Comment on above: Performed By: #### C MP, ANEU, GFR, CBC, ADIFF ####[address] [address] Monocyte, Absolute 0.6 10 3/mcL Normal 0.1-1.4 [facility] ([place]) Comment on above: Performed By: #### C MP, ANEU, GFR, CBC, ADIFF ####[address] [address] Monocytes/100 WBC (Bld) 8.4 % Normal 2.0-13.0 [facility] ([place] Comment on above: Performed By: #### C MP, ANEU, GFR, CBC, ADIFF ####[address] [address] Neutrophils/100 WBC (Bld) 45.5 % Low 50.0-75.0 [facility] ([place]) Comment on above: Performed By: #### C MP, ANEU, GFR, CBC, ADIFF ####[address] [address] .GFRon 02-26-2023 GFR >60 Normal [facility] ([place]) Comment on above: Result Comment: GFR Population mean for , Non- Americans Ages 20-29 = 116 mL/min/1.73 sq.m. Ages 30-39 = 107 mL/min/1.73 sq.m. Ages 40-49 = 99 mL/min/1.73 sq.m. Ages 50-59 = 93 mL/min/1.73 sq.m. Ages 60-69 = 85 mL/min/1.73 sq.m. Ages 70+ = 75 mL/min/1.73 sq.m. Chronic Kidney Disease: Less than 60 mL/min/1.73 square meters End Stage Renal Disease: Less than 15 mL/min/1.73 square meters Performed By: #### C MP, ANEU, GFR, CBC, ADIFF ####[place] [address] GFR Non- >60 Normal [facility] ([place]) Comment on above: Result Comment: GFR Population mean for , Non- Americans Ages 20-29 = 116 mL/min/1.73 sq.m. Ages 30-39 = 107 mL/min/1.73 sq.m. Ages 40-49 = 99 mL/min/1.73 sq.m. Ages 50-59 = 93 mL/min/1.73 sq.m. Ages 60-69 = 85 mL/min/1.73 sq.m. Ages 70+ = 75 mL/min/1.73 sq.m. Chronic Kidney Disease: Less than 60 mL/min/1.73 square meters End Stage Renal Disease: Less than 15 mL/min/1.73 square meters Performed By: #### C MP, ANEU, GFR, CBC, ADIFF ####[place] [id number] .NEUABSon 02-26-2023 Neutrophil, Absolute 3.3 10 3/mcL Normal 2.3-8.1 [facility] ([place]) Comment on above: Performed By: #### C MP, ANEU, GFR, CBC, ADIFF ####[place] [address] CBCon 02-26-2023 Erythrocyte distribution width (RBC) [Ratio] 14.9 % Normal 11.5-15.5 [facility] ([place]) Comment on above: Performed By: #### C MP, ANEU, GFR, CBC, ADIFF ####[place] [address] Hematocrit (Bld) [Volume fraction] 36.7 % Normal 34.0-46.0 [facility] ([place]) Comment on above: Performed By: #### C MP, ANEU, GFR, CBC, ADIFF ####[place] [address] Hgb 12.0 G/dL Normal 12.0-16.0 [facility] ([place]) Comment on above: Performed By: #### C MP, ANEU, GFR, CBC, ADIFF ####[place] [address] MCH (RBC) [Entitic mass] 29.6 pg Normal 27.0-33.0 [facility] ([place]) Comment on above: Performed By: #### C MP, ANEU, GFR, CBC, ADIFF ####[place] [address] MCHC 32.6 G/dL Normal 32.0-36.0 [facility] ([place]) Comment on above: Performed By: #### C MP, ANEU, GFR, CBC, ADIFF ####[place] [address] MCV (RBC) [Entitic vol] 90.9 fL Normal 80.0-99.0 [facility] ([place]) Comment on above: Performed By: #### C MP, ANEU, GFR, CBC, ADIFF ####[place] [address] Platelet 173 10 3/mcL Normal 150-450 [facility] ([place]) Comment on above: Performed By: #### C MP, ANEU, GFR, CBC, ADIFF ####[place] [address] Platelet mean volume (Bld) [Entitic vol] 9.4 fL Normal 6.6-10.5 [facility] ([place]) Comment on above: Performed By: #### C MP, ANEU, GFR, CBC, ADIFF ####[place] [address] RBC 4.04 10 6/mcL Low 4.10-5.30 [facility] ([place]) Comment on above: Performed By: #### C MP, ANEU, GFR, CBC, ADIFF ####[place] [address] WBC 7.3 10 3/mcL Normal 4.5-10.8 [facility] ([place]) Comment on above: Performed By: #### C MP, ANEU, GFR, CBC, ADIFF ####[place] [address] CMPon 02-26-2023 Albumin Level 3.3 G/dL Normal 3.2-4.8 [facility] ([place]) Comment on above: Performed By: #### C MP, ANEU, GFR, CBC, ADIFF ####[place] [address] Albumin/Globulin [Mass ratio] 1.0 {ratio} Normal 0.9-1.6 [facility] ([place]) Comment on above: Performed By: #### C MP, ANEU, GFR, CBC, ADIFF ####[place] [address] ALP [Catalytic activity/Vol] 108 U/L Normal 38-126 [facility] ([place]) Comment on above: Performed By: #### C MP, ANEU, GFR, CBC, ADIFF ####[place] [address] ALT [Catalytic activity/Vol] 14 U/L Normal 10-49 [facility] ([place]) Comment on above: Performed By: #### C MP, ANEU, GFR, CBC, ADIFF ####[place] [address] AST [Catalytic activity/Vol] 9 U/L Normal 8-34 [facility] ([place]) Comment on above: Performed By: #### C MP, ANEU, GFR, CBC, ADIFF ####[place] [id number] Bili Total 0.70 mg/dL Normal 0.20-1.20 [facility] ([place]) Comment on above: Result Comment: Use of this assay is not recommended for patients undergoing treatment with eltrombopag due to the potential for falsely elevated results. Performed By: #### C MP, ANEU, GFR, CBC, ADIFF ####[place] [address] BUN/Creatinine Ratio 20.6 ratio Normal 10.0-22.0 [facility] ([place]) Comment on above: Performed By: #### C MP, ANEU, GFR, CBC, ADIFF ####[place] [address] Calcium [Mass/Vol] 9.2 mg/dL Normal 8.7-10.4 [facility] ([place]) Comment on above: Performed By: #### C MP, ANEU, GFR, CBC, ADIFF ####[place] [address] Chloride [Moles/Vol] 102 mmol/L Normal 98-110 [facility] ([place]) Comment on above: Performed By: #### C MP, ANEU, GFR, CBC, ADIFF ####[place] [address] CO2 [Moles/Vol] 32 mmol/L Normal 22-32 [facility] ([place]) Comment on above: Performed By: #### C MP, ANEU, GFR, CBC, ADIFF ####[address] [address] Creatinine [Mass/Vol] 0.97 mg/dL Normal 0.50-1.20 [facility] ([place]) Comment on above: Performed By: #### C MP, ANEU, GFR, CBC, ADIFF ####[address] [address] Electrolyte Balance 6.0 mEq/L Normal 4.0-15.0 [facility] ([place]) Comment on above: Performed By: #### C MP, ANEU, GFR, CBC, ADIFF ####[address] [address] Globulin 3.2 G/dL Normal 1.5-3.8 [facility] ([place]) Comment on above: Performed By: #### C MP, ANEU, GFR, CBC, ADIFF ####[address] [address] Glucose [Mass/Vol] 97 mg/dL Normal 70-110 [facility] ([place]) Comment on above: Performed By: #### C MP, ANEU, GFR, CBC, ADIFF ####[place] [id number] Potassium [Moles/Vol] 4.2 mmol/L Normal 3.5-5.0 [facility] ([place]) Comment on above: Result Comment: Spec imen slightly hemolyzed. Performed By: #### C MP, ANEU, GFR, CBC, ADIFF ####[place] [address] Sodium [Moles/Vol] 140 mmol/L Normal 136-145 [facility] ([place]) Comment on above: Performed By: #### C MP, ANEU, GFR, CBC, ADIFF ####[place] [address] Total Protein 6.5 G/dL Normal 5.7-8.2 [facility] ([place]) Comment on above: Result Comment: No te - New Reference Range in effect 20 Performed By: #### C MP, ANEU, GFR, CBC, ADIFF ####[place] [address] Urea nitrogen [Mass/Vol] 20.0 mg/dL Normal 8.0-22.0 [facility] ([place]) Comment on above: Performed By: #### C MP, ANEU, GFR, CBC, ADIFF ####[address] [address] [address] ABDOMEN/PELVIS W/O CONTRA STon 02-26-2023 CT ABDOMEN/PELVIS W/O CONTRAST ORIGINAL EXAMINATION: CT OF THE ABDOMEN AND PELVIS WITHOUT CONTRAST02/26/2023 1:[address] ABDOMEN/PELVIS WITHOUT CONTRAST TECHNIQUE: CT of the abdomen and pelvis was performed without the administration of intravenous contrast. Multiplanar reformatted images are provided for review. Automated exposure control, iterative reconstruction, and/or weight based adjustment of the mA/kV was utilized to reduce the radiation dose to as low as reasonably achievable. COMPARISON: None HISTORY: ORDERING SYSTEM PROVIDED HISTORY: Reason for Exam: MID ABD PAIN, ? PANCREATITIS abd pain FINDINGS: There are no lower thoracic findings. Liver: Normal size and density. Minimal hepatic cyst formation is stable. No mass or biliary dilatation. Gallbladder: Physiologically distended and otherwise unremarkable in appearance. Common duct: Not dilated. Pancreas: There is mild inflammatory change around the pancreatic head and uncinate process. No mass, calcification or adjacent fluid collection. Stomach and duodenum: No mass or wall thickening. Spleen: No mass and is normal in size. Right Kidney: No hydronephrosis, solid mass or visible stone. Left Kidney: No hydronephrosis, solid mass or visible stone. Adrenal glands: Normal The large and small bowel loops are unremarkable in appearance. There is a normal appendix in the RIGHT lower quadrant. Retroperitoneum: No lymphadenopathy or hematoma. Aorta: No aneurysm. Urinary bladder: Normal Uterus is surgically absent. Mesentery: No mass or inflammatory change. No ascites or free air. No abdominal wall masses or external hernias There are no suspicious bone lesions. IMPRESSION: Mild inflammatory changes present around the head and uncinate process of the pancreas consistent with mild acute pancreatitis. Interpreted by: Ruben Navarrete MD Preliminary Report By: Ruben Navarrete MD Electronically signed By Ruben Navarrete MD Dictated Date: 02/26/2023 3:01:41 PM Prelim Date: 02/26/2023 3:05:04 PM Sign Date: 02/26/2023 3:05:04 PM Ordering Provider: CHEY CASTRO [facility] ([place]) XR ABDOMEN 2 VIEWS W/ DECUB/ ERECTon 02-26-2023 XR ABDOMEN 2 VIEWS W/ DECUB/ERECT ORIGINAL EXAMINATION: THREE XRAY VIEWS OF THE ABDOMEN 02/25/2023 4:17 pm COMPARISON: 12/24/2022 HISTORY: ORDERING SYSTEM PROVIDED HISTORY: Reason for Exam: abd pain FINDINGS: No significant bowel dilatation, pneumoperitoneum, or mass effect is seen. Evaluation for nephrolithiasis is somewhat limited by overlying colonic stool and gas. Mild constipation suspected, but no stool impaction. Cholecystectomy surgical clips are noted in the right upper quadrant. IMPRESSION: Nonobstructive bowel gas pattern. Interpreted by: Nigel Marroquin DO Preliminary Report By: Nigel Marroquin DO Electronically signed By Nigel Marroquin DO Dictated Date: 02/25/2023 11:08:54 PM Prelim Date: 02/25/2023 11:13:12 PM Sign Date: 02/25/2023 11:13:12 PM Ordering Provider: CHEY Guardado [facility] ([place]) .Auto Diffon 02-25-2023 Basophil, Absolute 0.0 10 3/mcL Normal 0.0-0.3 [facility] ([place]) Comment on above: Performed By: #### E SR #### [address] [address] Basophils/100 WBC (Bld) 0.4 % Normal 0.0-2.5 [facility] ([place]) Comment on above: Performed By: #### E SR #### [address] [address] Eosinophil, Absolute 0.1 10 3/mcL Normal 0.0-0.7 [facility] ([place]) Comment on above: Performed By: #### E SR #### [address] [address] Eosinophils/100 WBC (Bld) 0.7 % Normal 0.0-6.0 [facility] ([place]) Comment on above: Performed By: #### E SR #### [address] [address] Lymphocyte, Absolute 4.4 10 3/mcL High 0.9-4.3 [facility] ([place]) Comment on above: Performed By: #### E SR #### [address] [address] Lymphocytes/100 WBC (Bld) 42.8 % High 20.0-40.0 [facility] ([place]) Comment on above: Performed By: #### E SR #### [address] [address] Monocyte, Absolute 0.8 10 3/mcL Normal 0.1-1.4 [facility] ([place]) Comment on above: Performed By: #### E SR #### [address] [address] Monocytes/100 WBC (Bld) 7.7 % Normal 2.0-13.0 [facility] ([place]) Comment on above: Performed By: #### E SR #### [address] [address] Neutrophils/100 WBC (Bld) 48.4 % Low 50.0-75.0 [facility] ([place]) Comment on above: Performed By: #### E SR #### [address] [address] .GFRon 02-25-2023 GFR >60 Normal [facility] ([place]) Comment on above: Result Comment: GFR Population mean for , Non- Americans Ages 20-29 = 116 mL/min/1.73 sq.m. Ages 30-39 = 107 mL/min/1.73 sq.m. Ages 40-49 = 99 mL/min/1.73 sq.m. Ages 50-59 = 93 mL/min/1.73 sq.m. Ages 60-69 = 85 mL/min/1.73 sq.m. Ages 70+ = 75 mL/min/1.73 sq.m. Chronic Kidney Disease: Less than 60 mL/min/1.73 square meters End Stage Renal Disease: Less than 15 mL/min/1.73 square meters Performed By: #### E SR #### [address] [address] GFR Non- >60 Normal [facility] ([place]) Comment on above: Result Comment: GFR Population mean for , Non- Americans Ages 20-29 = 116 mL/min/1.73 sq.m. Ages 30-39 = 107 mL/min/1.73 sq.m. Ages 40-49 = 99 mL/min/1.73 sq.m. Ages 50-59 = 93 mL/min/1.73 sq.m. Ages 60-69 = 85 mL/min/1.73 sq.m. Ages 70+ = 75 mL/min/1.73 sq.m. Chronic Kidney Disease: Less than 60 mL/min/1.73 square meters End Stage Renal Disease: Less than 15 mL/min/1.73 square meters Performed By: #### E SR #### [address] [address] .NEUABSon 02-25-2023 Neutrophil, Absolute 5.0 10 3/mcL Normal 2.3-8.1 [facility] ([place]) Comment on above: Performed By: #### E SR #### [address] [address] BMPon 02-25-2023 BUN/Creatinine Ratio 21.2 ratio Normal 10.0-22.0 [facility] ([place]) Comment on above: Performed By: #### E SR #### [address] [address] Calcium [Mass/Vol] 9.4 mg/dL Normal 8.7-10.4 [facility] ([place]) Comment on above: Performed By: #### E SR #### [address] [address] Chloride [Moles/Vol] 104 mmol/L Normal 98-110 [facility] ([place]) Comment on above: Performed By: #### E SR #### [address] [address] CO2 [Moles/Vol] 26 mmol/L Normal 22-32 [facility] ([place]) Comment on above: Performed By: #### E SR #### [address] [address] Creatinine [Mass/Vol] 0.99 mg/dL Normal 0.50-1.20 [facility] ([place]) Comment on above: Performed By: #### E SR #### [address] [address] Electrolyte Balance 10.0 mEq/L Normal 4.0-15.0 [facility] ([place]) Comment on above: Performed By: #### E SR #### [address] [address] Glucose [Mass/Vol] 95 mg/dL Normal 70-110 [facility] ([place]) Comment on above: Performed By: #### E SR #### [place] [id number] Potassium [Moles/Vol] 4.1 mmol/L Normal 3.5-5.0 [facility] ([place]) Comment on above: Performed By: #### E SR #### [address] [address] Sodium [Moles/Vol] 140 mmol/L Normal 136-145 [facility] ([place]) Comment on above: Performed By: #### E SR #### [place] [id number] Urea nitrogen [Mass/Vol] 21.0 mg/dL Normal 8.0-22.0 [facility] ([place]) Comment on above: Performed By: #### E SR #### [place] [id number] CBCon 02-25-2023 Erythrocyte distribution width (RBC) [Ratio] 14.7 % Normal 11.5-15.5 [facility] ([place]) Comment on above: Performed By: #### E SR #### [place] [id number] Hematocrit (Bld) [Volume fraction] 37.7 % Normal 34.0-46.0 [facility] ([place]) Comment on above: Performed By: #### E SR #### [place] [id number] Hgb 12.3 G/dL Normal 12.0-16.0 [facility] ([place]) Comment on above: Performed By: #### E SR #### [place] [id number] MCH (RBC) [Entitic mass] 29.7 pg Normal 27.0-33.0 [facility] ([place]) Comment on above: Performed By: #### E SR #### [place] [id number] MCHC 32.7 G/dL Normal 32.0-36.0 [facility] ([place]) Comment on above: Performed By: #### E SR #### [address] [address] MCV (RBC) [Entitic vol] 90.8 fL Normal 80.0-99.0 [facility] ([place]) Comment on above: Performed By: #### E SR #### [place] [id number] Platelet 223 10 3/mcL Normal 150-450 [facility] ([place]) Comment on above: Performed By: #### E SR #### [place] [id number] Platelet mean volume (Bld) [Entitic vol] 9.5 fL Normal 6.6-10.5 [facility] ([place]) Comment on above: Performed By: #### E SR #### [place] [address] RBC 4.15 10 6/mcL Normal 4.10-5.30 [facility] ([place]) Comment on above: Performed By: #### E SR #### [place] [address] WBC 10.3 10 3/mcL Normal 4.5-10.8 [facility] ([place]) Comment on above: Performed By: #### E SR #### [place] [address] LIPon 02-25-2023 Lipase Level 86 U/L High 12-53 [facility] ([place]) Comment on above: Result Comment: No te - New Reference Range in effect 20 Performed By: #### L IP #### [place] [address] PROon 02-24-2023 INR Coag (PPP) [Relative time] 1.0 {INR} Normal [facility] ([place]) Comment on above: Result Comment: The [employer] (CHEST, 1992, [id number]) recommended therapeutic range for oral anticoagulant therapy is: LOW RISK: Prophylaxis of venous thrombosis INR: 2.0-3.0 Treatment of pulmonary embolism 2.0-3.0 Prevention of systemic embolism 2.0-3.0 HIGH RISK: Mechanical prosthetic valves 2.5-3.5 Performed By: #### P RO #### [place] [address] PT Coag (PPP) [Time] 11.7 s Normal 9.0-14.8 [facility] ([place]) Comment on above: Result Comment: Effe ctive 03/28/08, Protime results may be affected by some antibiotics (i.e. Ciprofloxacin, Azithromycin, Bactrim) which may potentiate the action of oral anticoagulants, with further increases in Protime/INR. Performed By: #### P RO #### [place] [address] UAon 02-24-2023 Color (U) Yellow Normal [facility] ([place]) Comment on above: Performed By: #### U AMIC, UA #### [place] [address] Glucose (U) [Mass/Vol] Negative Normal Negative [facility] ([place]) Comment on above: Performed By: #### U AMIC, UA #### [place] [address] Ketones Ql (U) Trace Normal Neg-Trace [facility] ([place]) Comment on above: Performed By: #### U AMIC, UA #### [place] [address] UA Appear Hazy Abnormal Clear [facility] ([place]) Comment on above: Performed By: #### U AMIC, UA #### [place] [address] UA Blood Negative Normal Neg-Trace [facility] ([place]) Comment on above: Performed By: #### U AMIC, UA #### [place] [id number] UA Leuk Est Negative Normal Negative [facility] ([place]) Comment on above: Performed By: #### U AMIC, UA #### [place] [id number] UA Nitrite Negative Normal Negative [facility] ([place]) Comment on above: Performed By: #### U AMIC, UA #### [place] [address] UA pH 6.5 Normal 5.0 - 8.0 [facility] ([place]) Comment on above: Performed By: #### U AMIC, UA #### [place] [address] UA Protein Negative Normal Negative [facility] ([place]) Comment on above: Performed By: #### U AMIC, UA #### [place] [address] UA Spec Grav 1.020 Normal 1.006-1.029 [facility] ([place]) Comment on above: Performed By: #### U AMIC, UA #### [place] [address] UA Specimen Type Clean Catch Normal [facility] ([place]) Comment on above: Performed By: #### U AMIC, UA #### [place] [address] UA Urobilinogen 1.0 E.U./dL Normal 0.2-1.0 [facility] ([place]) Comment on above: Performed By: #### U AMIC, UA #### [place] [address] Urobilinogen (U) [Mass/Vol] Negative Normal Neg-Trace [facility] ([place]) Comment on above: Performed By: #### U AMIC, UA #### [place] [address] UAMICon 02-24-2023 UA Bacteria 2+ /hpf Abnormal Negative [facility] ([place]) Comment on above: Performed By: #### U AMIC, UA #### [place] [address] UA Mucous 2+ /hpf Normal [facility] ([place]) Comment on above: Performed By: #### U AMIC, UA #### [place] [address] UA RBC Negative Normal 0-2 [facility] ([place]) Comment on above: Performed By: #### U AMIC, UA #### [address] [address] UA Squam Epithelial 5-10 Normal 0-20 [facility] ([place]) Comment on above: Performed By: #### U AMIC, UA #### [address] [address] UA WBC Rare Normal 0-5 [facility] ([place]) Comment on above: Performed By: #### U AMIC, UA #### [address] [address] .Auto Diffon 02-23-2023 Basophil, Absolute 0.1 10 3/mcL Normal 0.0-0.3 [facility] ([place]) Comment on above: Performed By: #### U AMIC, UA #### [address] [address] Basophils/100 WBC (Bld) 0.3 % Normal 0.0-2.5 [facility] ([place]) Comment on above: Performed By: #### U AMIC, UA #### [address] [address] Eosinophil, Absolute 0.0 10 3/mcL Normal 0.0-0.7 [facility] ([place]) Comment on above: Performed By: #### U AMIC, UA #### [address] [address] Eosinophils/100 WBC (Bld) 0.0 % Normal 0.0-6.0 [facility] ([place]) Comment on above: Performed By: #### U AMIC, UA #### [address] [address] Lymphocyte, Absolute 1.8 10 3/mcL Normal 0.9-4.3 [facility] ([place]) Comment on above: Performed By: #### U AMIC, UA #### [address] [address] Lymphocytes/100 WBC (Bld) 9.3 % Low 20.0-40.0 [facility] ([place]) Comment on above: Performed By: #### U AMIC, UA #### [facility] [address] [place] [address] Monocyte, Absolute 0.4 10 3/mcL Normal 0.1-1.4 [facility] ([place]) Comment on above: Performed By: #### U AMIC, UA #### [facility] [address] [place] [address] Monocytes/100 WBC (Bld) 2.0 % Normal 2.0-13.0 [facility] ([place]) Comment on above: Performed By: #### U AMIC, UA #### [facility] [address] [place] [address] Neutrophils/100 WBC (Bld) 88.4 % High 50.0-75.0 [facility] ([place]) Comment on above: Performed By: #### U AMIC, UA #### [facility] [address] [place] [address] .GFRon 02-23-2023 GFR Non- >60 Normal [facility] ([place]) Comment on above: Result Comment: GFR Population mean for , Non- Americans Ages 20-29 = 116 mL/min/1.73 sq.m. Ages 30-39 = 107 mL/min/1.73 sq.m. Ages 40-49 = 99 mL/min/1.73 sq.m. Ages 50-59 = 93 mL/min/1.73 sq.m. Ages 60-69 = 85 mL/min/1.73 sq.m. Ages 70+ = 75 mL/min/1.73 sq.m. Chronic Kidney Disease: Less than 60 mL/min/1.73 square meters End Stage Renal Disease: Less than 15 mL/min/1.73 square meters Performed By: #### U AMIC, UA #### [facility] [address] [place] [address] GFR >60 Normal [facility] ([place]) Comment on above: Result Comment: GFR Population mean for , Non- Americans Ages 20-29 = 116 mL/min/1.73 sq.m. Ages 30-39 = 107 mL/min/1.73 sq.m. Ages 40-49 = 99 mL/min/1.73 sq.m. Ages 50-59 = 93 mL/min/1.73 sq.m. Ages 60-69 = 85 mL/min/1.73 sq.m. Ages 70+ = 75 mL/min/1.73 sq.m. Chronic Kidney Disease: Less than 60 mL/min/1.73 square meters End Stage Renal Disease: Less than 15 mL/min/1.73 square meters Performed By: #### U AMIC UA #### [address] [address] .NEUABSon 02-23-2023 Neutrophil, Absolute 16.8 10 3/mcL High 2.3-8.1 [facility] ([place]) Comment on above: Performed By: #### U AMIC UA #### [address] [address] BMPon 02-23-2023 BUN/Creatinine Ratio 13.3 ratio Normal 10.0-22.0 [facility] ([place]) Comment on above: Performed By: #### U AMIC UA #### [place] [id number] Calcium [Mass/Vol] 9.8 mg/dL Normal 8.7-10.4 [facility] ([place]) Comment on above: Performed By: #### U AMIC UA #### [address] [address] Chloride [Moles/Vol] 104 mmol/L Normal 98-110 [facility] ([place]) Comment on above: Performed By: #### U AMIC, UA #### [place] [address] CO2 [Moles/Vol] 24 mmol/L Normal 22-32 [facility] ([place]) Comment on above: Performed By: #### U AMIC, UA #### [address] [address] Creatinine [Mass/Vol] 0.83 mg/dL Normal 0.50-1.20 [facility] ([place]) Comment on above: Performed By: #### U AMIC, UA #### [place] [id number] Electrolyte Balance 10.0 mEq/L Normal 4.0-15.0 [facility] ([place]) Comment on above: Performed By: #### U ROMA UA #### [address] [address] Glucose [Mass/Vol] 176 mg/dL High 70-110 [facility] ([place]) Comment on above: Performed By: #### U BIANCAC, UA #### [address] [address] Potassium [Moles/Vol] 4.3 mmol/L Normal 3.5-5.0 [facility] ([place]) Comment on above: Performed By: #### U BIANCAC, UA #### [address] [address] Sodium [Moles/Vol] 138 mmol/L Normal 136-145 [facility] ([place]) Comment on above: Performed By: #### U ROMA UA #### [address] [address] Urea nitrogen [Mass/Vol] 11.0 mg/dL Normal 8.0-22.0 [facility] ([place]) Comment on above: Performed By: #### U ROMA UA #### [address] [address] CBCon 02-23-2023 Erythrocyte distribution width (RBC) [Ratio] 14.8 % Normal 11.5-15.5 [facility] ([place]) Comment on above: Performed By: #### U BIANCAC, UA #### [address] [address] Hematocrit (Bld) [Volume fraction] 38.1 % Normal 34.0-46.0 [facility] ([place]) Comment on above: Performed By: #### U AMIC, UA #### [address] [address] Hgb 12.6 G/dL Normal 12.0-16.0 [facility] ([place]) Comment on above: Performed By: #### U AMIC, UA #### [address] [address] MCH (RBC) [Entitic mass] 29.8 pg Normal 27.0-33.0 [facility] ([place]) Comment on above: Performed By: #### U ROMA UA #### [address] [address] MCHC 33.0 G/dL Normal 32.0-36.0 [facility] ([place]) Comment on above: Performed By: #### U ROMA UA #### [place] [id number] MCV (RBC) [Entitic vol] 90.1 fL Normal 80.0-99.0 [facility] ([place]) Comment on above: Performed By: #### Sandrine BRANDON UA #### [place] [id number] Platelet 254 10 3/mcL Normal 150-450 [facility] ([place]) Comment on above: Performed By: #### Sandrine BRANDON UA #### [place] [address] Platelet mean volume (Bld) [Entitic vol] 9.7 fL Normal 6.6-10.5 [facility] ([place]) Comment on above: Performed By: #### Sandrine BRANDON UA #### [place] [address] RBC 4.23 10 6/mcL Normal 4.10-5.30 [facility] ([place]) Comment on above: Performed By: #### U ROMA UA #### [place] [id number] WBC 19.0 10 3/mcL High 4.5-10.8 [facility] ([place]) Comment on above: Performed By: #### U ROMA UA #### [address] [address] ESRon 02-23-2023 Erythrocyte Sed Rate 17 mm/hr Normal 0-20 [facility] ([place]) Comment on above: Performed By: #### E SR #### [address] [address] MGon 02-23-2023 Magnesium [Mass/Vol] 1.8 mg/dL Normal 1.6-2.4 [facility] ([place]) Comment on above: Performed By: #### U AMIC, UA #### [address] [address] .GFRon 02-22-2023 GFR Non- >60 Normal [facility] ([place]) Comment on above: Result Comment: GFR Population mean for , Non- Americans Ages 20-29 = 116 mL/min/1.73 sq.m. Ages 30-39 = 107 mL/min/1.73 sq.m. Ages 40-49 = 99 mL/min/1.73 sq.m. Ages 50-59 = 93 mL/min/1.73 sq.m. Ages 60-69 = 85 mL/min/1.73 sq.m. Ages 70+ = 75 mL/min/1.73 sq.m. Chronic Kidney Disease: Less than 60 mL/min/1.73 square meters End Stage Renal Disease: Less than 15 mL/min/1.73 square meters Performed By: #### B MP, GFR #### [address] [address] GFR >60 Normal [facility] ([place]) Comment on above: Result Comment: GFR Population mean for , Non- Americans Ages 20-29 = 116 mL/min/1.73 sq.m. Ages 30-39 = 107 mL/min/1.73 sq.m. Ages 40-49 = 99 mL/min/1.73 sq.m. Ages 50-59 = 93 mL/min/1.73 sq.m. Ages 60-69 = 85 mL/min/1.73 sq.m. Ages 70+ = 75 mL/min/1.73 sq.m. Chronic Kidney Disease: Less than 60 mL/min/1.73 square meters End Stage Renal Disease: Less than 15 mL/min/1.73 square meters Performed By: #### B MP, GFR #### [address] [address] .Manual Diffon 02-22-2023 Basophil %, Manual 0.0 % Normal 0.0-2.5 [facility] ([place]) Comment on above: Performed By: #### B MP, GFR #### [address] [address] Basophil, Abs Manual 0.0 10 3/mcL Normal 0.0-0.3 [facility] ([place]) Comment on above: Performed By: #### B MP, GFR #### [address] [address] Eosinophil %, Manual 1.0 % Normal 0.0-6.0 [facility] ([place]) Comment on above: Performed By: #### B MP, GFR #### [address] [address] Eosinophil, Abs Manual 0.1 10 3/mcL Normal 0.0-0.7 [facility] ([place]) Comment on above: Performed By: #### B MP, GFR #### [address] [address] Lymphocyte %, Manual 18.0 % Low 20.0-40.0 [facility] ([place]) Comment on above: Performed By: #### B MP, GFR #### [address] [address] Lymphocyte, Abs Manual 1.6 10 3/mcL Normal 0.9-4.3 [facility] ([place] Comment on above: Performed By: #### B MP, GFR #### [address] [address] Monocyte %, Manual 0.0 % Low 2.0-13.0 [facility] ([place]) Comment on above: Performed By: #### B MP, GFR #### [address] [address] Monocyte, Abs Manual 0.0 10 3/mcL Low 0.1-1.4 [facility] ([place]) Comment on above: Performed By: #### B MP, GFR #### [address] [address] Neutrophil %, Manual 81.0 % High 50.0-75.0 [facility] ([place]) Comment on above: Performed By: #### B MP, GFR #### [address] [address] Neutrophil, Abs Manual 7.1 10 3/mcL Normal 2.3-8.1 [facility] ([place]) Comment on above: Performed By: #### B MP, GFR #### [place] [address] Nucleated RBC 0.0 /100 WBC Normal [facility] ([place]) Comment on above: Performed By: #### B MP, GFR #### [place] [address] .Morphon 02-22-2023 Platelet Estimate Normal Normal [facility] ([place]) Comment on above: Performed By: #### B MP, GFR #### [place] [address] RBC morphology finding Nom (Bld) See Below Normal [facility] ([place]) Comment on above: Result Comment: RBC Morphology appears Normal Performed By: #### B MP, GFR #### [place] [address] BMPon 02-22-2023 BUN/Creatinine Ratio 11.9 ratio Normal 10.0-22.0 [facility] ([place]) Comment on above: Performed By: #### B MP, GFR #### [place] [address] Calcium [Mass/Vol] 9.6 mg/dL Normal 8.7-10.4 [facility] ([place]) Comment on above: Performed By: #### B MP, GFR #### [place] [address] Chloride [Moles/Vol] 104 mmol/L Normal 98-110 [facility] ([place]) Comment on above: Performed By: #### B MP, GFR #### [place] [id number] CO2 [Moles/Vol] 23 mmol/L Normal 22-32 [facility] ([place]) Comment on above: Performed By: #### B MP, GFR #### [place] [address] Creatinine [Mass/Vol] 0.84 mg/dL Normal 0.50-1.20 [facility] ([place]) Comment on above: Performed By: #### B MP, GFR #### [address] [address] Electrolyte Balance 11.0 mEq/L Normal 4.0-15.0 [facility] ([place]) Comment on above: Performed By: #### B MP, GFR #### [address] [address] Glucose [Mass/Vol] 157 mg/dL High 70-110 [facility] ([place]) Comment on above: Performed By: #### B MP, GFR #### [address] [address] Potassium [Moles/Vol] 4.1 mmol/L Normal 3.5-5.0 [facility] ([place]) Comment on above: Performed By: #### B MP, GFR #### [place] [id number] Sodium [Moles/Vol] 138 mmol/L Normal 136-145 [facility] ([place]) Comment on above: Performed By: #### B MP, GFR #### [address] [address] Urea nitrogen [Mass/Vol] 10.0 mg/dL Normal 8.0-22.0 [facility] ([place]) Comment on above: Performed By: #### B MP, GFR #### [address] [address] CBCon 02-22-2023 Platelet 187 10 3/mcL Normal 150-450 [facility] ([place]) Comment on above: Performed By: #### B MP, GFR #### [address] [address] Platelet mean volume (Bld) [Entitic vol] 9.7 fL Normal 6.6-10.5 [facility] ([place]) Comment on above: Performed By: #### B MP, GFR #### [address] [address] WBC 8.8 10 3/mcL Normal 4.5-10.8 [facility] ([place]) Comment on above: Performed By: #### B MP, GFR #### [address] [address] Erythrocyte distribution width (RBC) [Ratio] 14.4 % Normal 11.5-15.5 [facility] ([place]) Comment on above: Performed By: #### B MP, GFR #### [address] [address] Hematocrit (Bld) [Volume fraction] 39.4 % Normal 34.0-46.0 [facility] ([place]) Comment on above: Performed By: #### B MP, GFR #### [address] [address] Hgb 13.0 G/dL Normal 12.0-16.0 [facility] ([place]) Comment on above: Performed By: #### B MP, GFR #### [place] [id number] MCH (RBC) [Entitic mass] 29.9 pg Normal 27.0-33.0 [facility] ([place]) Comment on above: Performed By: #### B MP, GFR #### [place] [address] MCHC 33.1 G/dL Normal 32.0-36.0 [facility] ([place]) Comment on above: Performed By: #### B MP, GFR #### [place] [id number] MCV (RBC) [Entitic vol] 90.3 fL Normal 80.0-99.0 [facility] ([place]) Comment on above: Performed By: #### B MP, GFR #### [place] [id number] RBC 4.36 10 6/mcL Normal 4.10-5.30 [facility] ([place]) Comment on above: Performed By: #### B MP, GFR #### [address] [address] HFPon 02-22-2023 Bili Indirect 0.4 mg/dL Normal 0.1-10.0 [facility] ([place]) Comment on above: Performed By: #### B MP, GFR #### [place] [address] Albumin Level 4.3 G/dL Normal 3.2-4.8 [facility] ([place]) Comment on above: Performed By: #### B MP, GFR #### [place] [id number] Albumin/Globulin [Mass ratio] 1.2 {ratio} Normal 0.9-1.6 [facility] ([place]) Comment on above: Performed By: #### B MP, GFR #### [place] [phone] ALP [Catalytic activity/Vol] 120 U/L Normal 38-126 [facility] ([place]) Comment on above: Performed By: #### B MP, GFR #### [place] [id number] ALT [Catalytic activity/Vol] 26 U/L Normal 10-49 [facility] ([place]) Comment on above: Performed By: #### B MP, GFR #### [place] [phone] AST [Catalytic activity/Vol] 18 U/L Normal 8-34 [facility] ([place]) Comment on above: Performed By: #### B MP, GFR #### [place] [phone] Bili Direct 0.2 mg/dL Normal 0.0-0.4 [facility] ([place]) Comment on above: Result Comment: Use of this assay is not recommended for patients undergoing treatment with eltrombopag due to the potential for falsely elevated results. Performed By: #### B MP, GFR #### [place] [phone] Bili Total 0.60 mg/dL Normal 0.20-1.20 [facility] ([place]) Comment on above: Result Comment: Use of this assay is not recommended for patients undergoing treatment with eltrombopag due to the potential for falsely elevated results. Performed By: #### B MP, GFR #### [place] [phone] Globulin 3.6 G/dL Normal 1.5-3.8 [facility] ([place]) Comment on above: Performed By: #### B MP, GFR #### [facility] [address] [place] [address] Total Protein 7.9 G/dL Normal 5.7-8.2 [facility] ([place]) Comment on above: Result Comment: No te - New Reference Range in effect 20 Performed By: #### B MP, GFR #### [facility] [address] [place] [address] MGon 02-22-2023 Magnesium [Mass/Vol] 2.1 mg/dL Normal 1.6-2.4 [facility] ([place]) Comment on above: Performed By: #### B MP, GFR #### [facility] [address] [place] [address] MRI BRAIN W/ + W/O CONTRASTo n 02-22-2023 MRI BRAIN W/ + W/O CONTRAST ORIGINAL EXAMINATION: MRI OF THE BRAIN WITHOUT AND WITH CONTRAST 02/22/2023 12:10 pm TECHNIQUE: Multiplanar multisequence MRI of the head/brain was performed without and with the administration of intravenous contrast. COMPARISON: CT head 02/21/2023 HISTORY: ORDERING SYSTEM PROVIDED HISTORY: Reason for Exam: Severe refractory headache FINDINGS: INTRACRANIAL STRUCTURES/VENTRICLES: There is no acute infarct. No mass effect or midline shift. No evidence of an acute intracranial hemorrhage. The ventricles and sulci are normal in size and configuration. The sellar/suprasellar regions appear unremarkable. The normal signal voids within the major intracranial vessels appear maintained. No abnormal focus of enhancement is seen within the brain. ORBITS: The visualized portion of the orbits demonstrate no acute abnormality. SINUSES: The visualized paranasal sinuses and mastoid air cells demonstrate no acute abnormality. Small amount of nonspecific fluid signal left greater than right mastoid air cells. BONES/SOFT TISSUES: The bone marrow signal intensity appears normal. The soft tissues demonstrate no acute abnormality. IMPRESSION: Normal MRI of the brain. Small amount of nonspecific bilateral mastoid fluid, usually the sequela of Eustachian tube tube dysfunction. Interpreted by: Ramone Miller Preliminary Report By: Ramone Miller Electronically signed By Ramone Miller Dictated Date: 02/22/2023 6:46:46 PM Prelim Date: 02/22/2023 6:53:12 PM Sign Date: 02/22/2023 6:53:12 PM Ordering Provider: RAN Guardado [facility] ([place]) MRV BRAIN W/O CONTRASTon MRV BRAIN W/O CONTRAST ORIGINAL EXAMINATION: MRV OF THE HEAD WITHOUT CONTRAST 02/22/2023: TECHNIQUE: Multiplanar multisequence MRV of the head was performed without the administration of intravenous contrast. COMPARISON: None. HISTORY: ORDERING SYSTEM PROVIDED HISTORY: Reason for Exam: Severe refractory headache FINDINGS: No focal stenosis or thrombus is seen of the major dural venous sinuses. IMPRESSION: Unremarkable MRV of the head. Interpreted by: Ramone Miller Preliminary Report By: Ramone Miller Electronically signed By Ramone Miller Dictated Date: 02/22/2023 7:46:18 PM Prelim Date: 02/22/2023 7:48:16 PM Sign Date: 02/22/2023 7:48:16 PM Ordering Provider: RAN Guardado [facility] ([place]) .Auto Diffon 02-21-2023 Basophil, Absolute 0.1 10 3/mcL Normal 0.0-0.3 [facility] ([place]) Comment on above: Performed By: #### U AMIC, UA #### [address] [address] Basophils/100 WBC (Bld) 1.1 % Normal 0.0-2.5 [facility] ([place]) Comment on above: Performed By: #### U AMIC, UA #### [address] [address] Eosinophil, Absolute 0.2 10 3/mcL Normal 0.0-0.7 [facility] ([place]) Comment on above: Performed By: #### U AMIC, UA #### [address] [address] Eosinophils/100 WBC (Bld) 3.6 % Normal 0.0-6.0 [facility] ([place]) Comment on above: Performed By: #### U AMIC, UA #### [address] [address] Lymphocyte, Absolute 2.7 10 3/mcL Normal 0.9-4.3 [facility] ([place]) Comment on above: Performed By: #### U AMIC, UA #### [address] [address] Lymphocytes/100 WBC (Bld) 42.8 % High 20.0-40.0 [facility] ([place]) Comment on above: Performed By: #### U AMIC, UA #### [address] [address] Monocyte, Absolute 0.4 10 3/mcL Normal 0.1-1.4 [facility] ([place]) Comment on above: Performed By: #### U AMIC, UA #### [address] [address] Monocytes/100 WBC (Bld) 6.3 % Normal 2.0-13.0 [facility] ([place]) Comment on above: Performed By: #### U AMIC, UA #### [address] [address] Neutrophils/100 WBC (Bld) 46.2 % Low 50.0-75.0 [facility] ([place]) Comment on above: Performed By: #### U AMIC, UA #### [address] [address] .GFRon 02-21-2023 GFR >60 Normal [facility] ([place]) Comment on above: Result Comment: GFR Population mean for , Non- Americans Ages 20-29 = 116 mL/min/1.73 sq.m. Ages 30-39 = 107 mL/min/1.73 sq.m. Ages 40-49 = 99 mL/min/1.73 sq.m. Ages 50-59 = 93 mL/min/1.73 sq.m. Ages 60-69 = 85 mL/min/1.73 sq.m. Ages 70+ = 75 mL/min/1.73 sq.m. Chronic Kidney Disease: Less than 60 mL/min/1.73 square meters End Stage Renal Disease: Less than 15 mL/min/1.73 square meters Performed By: #### U AMIC, UA #### [address] [address] GFR Non- >60 Normal [facility] ([place]) Comment on above: Result Comment: GFR Population mean for , Non- Americans Ages 20-29 = 116 mL/min/1.73 sq.m. Ages 30-39 = 107 mL/min/1.73 sq.m. Ages 40-49 = 99 mL/min/1.73 sq.m. Ages 50-59 = 93 mL/min/1.73 sq.m. Ages 60-69 = 85 mL/min/1.73 sq.m. Ages 70+ = 75 mL/min/1.73 sq.m. Chronic Kidney Disease: Less than 60 mL/min/1.73 square meters End Stage Renal Disease: Less than 15 mL/min/1.73 square meters Performed By: #### U AMIC UA #### [address] [address] .NEUABSon 02-21-2023 Neutrophil, Absolute 2.9 10 3/mcL Normal 2.3-8.1 [facility] ([place]) Comment on above: Performed By: #### U AMIC UA #### [address] [address] BMPon 02-21-2023 BUN/Creatinine Ratio 9.2 ratio Low 10.0-22.0 [facility] ([place]) Comment on above: Performed By: #### U AMIC, UA #### [address] [address] Calcium [Mass/Vol] 10.4 mg/dL Normal 8.7-10.4 [facility] ([place]) Comment on above: Performed By: #### U AMIC, UA #### [address] [address] Chloride [Moles/Vol] 102 mmol/L Normal 98-110 [facility] ([place]) Comment on above: Performed By: #### U AMIC, UA #### [address] [address] CO2 [Moles/Vol] 30 mmol/L Normal 22-32 [facility] ([place]) Comment on above: Performed By: #### U AMIC, UA #### [address] [address] Creatinine [Mass/Vol] 0.98 mg/dL Normal 0.50-1.20 [facility] ([place]) Comment on above: Performed By: #### U AMIC, UA #### [address] [address] Electrolyte Balance 7.0 mEq/L Normal 4.0-15.0 [facility] ([place]) Comment on above: Performed By: #### U AMIC, UA #### [address] [address] Glucose [Mass/Vol] 93 mg/dL Normal 70-110 [facility] ([place]) Comment on above: Performed By: #### U AMIC, UA #### [address] [address] Potassium [Moles/Vol] 4.2 mmol/L Normal 3.5-5.0 [facility] ([place]) Comment on above: Performed By: #### U AMIC, UA #### [address] [address] Sodium [Moles/Vol] 139 mmol/L Normal 136-145 [facility] ([place]) Comment on above: Performed By: #### U AMIC, UA #### [address] [address] Urea nitrogen [Mass/Vol] 9.0 mg/dL Normal 8.0-22.0 [facility] ([place]) Comment on above: Performed By: #### U AMIC, UA #### [address] [address] CBCon 02-21-2023 Erythrocyte distribution width (RBC) [Ratio] 14.7 % Normal 11.5-15.5 [facility] ([place]) Comment on above: Performed By: #### U AMIC, UA #### [address] [address] Hematocrit (Bld) [Volume fraction] 40.9 % Normal 34.0-46.0 [facility] ([place]) Comment on above: Performed By: #### U AMIC, UA #### [address] [address] Hgb 13.6 G/dL Normal 12.0-16.0 [facility] ([place]) Comment on above: Performed By: #### U AMIC, UA #### [address] [address] MCH (RBC) [Entitic mass] 29.8 pg Normal 27.0-33.0 [facility] ([place]) Comment on above: Performed By: #### U AMIC, UA #### [address] [address] MCHC 33.1 G/dL Normal 32.0-36.0 [facility] ([place]) Comment on above: Performed By: #### U AMIC, UA #### [address] [address] MCV (RBC) [Entitic vol] 89.9 fL Normal 80.0-99.0 [facility] ([place]) Comment on above: Performed By: #### U AMIC, UA #### [address] [address] Platelet 235 10 3/mcL Normal 150-450 [facility] ([place]) Comment on above: Performed By: #### U AMIC, UA #### [address] [address] Platelet mean volume (Bld) [Entitic vol] 9.0 fL Normal 6.6-10.5 [facility] ([place]) Comment on above: Performed By: #### U AMIC, UA #### [address] [address] RBC 4.55 10 6/mcL Normal 4.10-5.30 [facility] ([place]) Comment on above: Performed By: #### U AMIC, UA #### [address] [address] WBC 6.4 10 3/mcL Normal 4.5-10.8 [facility] ([place]) Comment on above: Performed By: #### U AMIC, UA #### [address] [address] [address] HEAD OR BRAIN W/O CONTRAS Ton 02-21-2023 CT HEAD OR BRAIN W/O CONTRAST ORIGINAL EXAMINATION: CT OF THE HEAD WITHOUT CONTRAST 02/21/2023 6:26 pm TECHNIQUE: CT of the head was performed without the administration of intravenous contrast. Automated exposure control, iterative reconstruction, and/or weight based adjustment of the mA/kV was utilized to reduce the radiation dose to as low as reasonably achievable. COMPARISON: CT head 02/20/2023 (images only no report available). HISTORY: ORDERING SYSTEM PROVIDED HISTORY: Reason for Exam: HAS HAD SEVERE HEADACHE X 3 DAYS, WILL NOT GO AWAY, PAIN IS IN ENTIRE HEAD, BLURRY VISION, HAS HX MIGRAINES, BUT THEY USUALLY RESOLVE WITH MEDS AND/OR TIME, NAUSEATED AND WEAKNESS headache FINDINGS: BRAIN/VENTRICLES: There is no acute intracranial hemorrhage, mass effect or midline shift. No abnormal extra-axial fluid collection. The orozco-white differentiation is maintained without evidence of an acute infarct. There is no evidence of hydrocephalus. ORBITS: The visualized portion of the orbits demonstrate no acute abnormality. SINUSES: The visualized paranasal sinuses and mastoid air cells demonstrate no acute abnormality. SOFT TISSUES/SKULL: No acute abnormality of the visualized skull or soft tissues. IMPRESSION: No acute intracranial abnormality. Interpreted by: Ramone Miller Preliminary Report By: Ramone Miller Electronically signed By Ramone Miller Dictated Date: 02/21/2023 6:27:32 PM Prelim Date: 02/21/2023 6:32:49 PM Sign Date: 02/21/2023 6:32:49 PM Ordering Provider: NICOLLE Guardado [facility] ([place]) .Auto Diffon 02-20-2023 Basophil, Absolute 0.1 10 3/mcL Normal 0.0-0.3 [facility] ([place]) Comment on above: Performed By: #### B MP, GFR #### [address] [address] Basophils/100 WBC (Bld) 0.7 % Normal 0.0-2.5 [facility] ([place]) Comment on above: Performed By: #### B MP, GFR #### [address] [address] Eosinophil, Absolute 0.2 10 3/mcL Normal 0.0-0.7 [facility] ([place]) Comment on above: Performed By: #### B MP, GFR #### [address] [address] Eosinophils/100 WBC (Bld) 3.1 % Normal 0.0-6.0 [facility] ([place]) Comment on above: Performed By: #### B MP, GFR #### [address] [address] Lymphocyte, Absolute 2.8 10 3/mcL Normal 0.9-4.3 [facility] ([place]) Comment on above: Performed By: #### B MP, GFR #### [address] [address] Lymphocytes/100 WBC (Bld) 39.5 % Normal 20.0-40.0 [facility] ([place]) Comment on above: Performed By: #### B MP, GFR #### [address] [address] Monocyte, Absolute 0.5 10 3/mcL Normal 0.1-1.4 [facility] ([place]) Comment on above: Performed By: #### B MP, GFR #### [address] [address] Monocytes/100 WBC (Bld) 7.2 % Normal 2.0-13.0 [facility] ([place]) Comment on above: Performed By: #### B MP, GFR #### [address] [address] Neutrophils/100 WBC (Bld) 49.5 % Low 50.0-75.0 [facility] ([place]) Comment on above: Performed By: #### B MP, GFR #### [address] [address] .GFRon 02-20-2023 GFR Non- >60 Normal [facility] ([place]) Comment on above: Result Comment: GFR Population mean for , Non- Americans Ages 20-29 = 116 mL/min/1.73 sq.m. Ages 30-39 = 107 mL/min/1.73 sq.m. Ages 40-49 = 99 mL/min/1.73 sq.m. Ages 50-59 = 93 mL/min/1.73 sq.m. Ages 60-69 = 85 mL/min/1.73 sq.m. Ages 70+ = 75 mL/min/1.73 sq.m. Chronic Kidney Disease: Less than 60 mL/min/1.73 square meters End Stage Renal Disease: Less than 15 mL/min/1.73 square meters Performed By: #### B MP, GFR #### [address] [address] GFR >60 Normal [facility] ([place]) Comment on above: Result Comment: GFR Population mean for , Non- Americans Ages 20-29 = 116 mL/min/1.73 sq.m. Ages 30-39 = 107 mL/min/1.73 sq.m. Ages 40-49 = 99 mL/min/1.73 sq.m. Ages 50-59 = 93 mL/min/1.73 sq.m. Ages 60-69 = 85 mL/min/1.73 sq.m. Ages 70+ = 75 mL/min/1.73 sq.m. Chronic Kidney Disease: Less than 60 mL/min/1.73 square meters End Stage Renal Disease: Less than 15 mL/min/1.73 square meters Performed By: #### B MP, GFR #### [address] [address] GFR >60 Normal [facility] ([place]) Comment on above: Result Comment: GFR Population mean for , Non- Americans Ages 20-29 = 116 mL/min/1.73 sq.m. Ages 30-39 = 107 mL/min/1.73 sq.m. Ages 40-49 = 99 mL/min/1.73 sq.m. Ages 50-59 = 93 mL/min/1.73 sq.m. Ages 60-69 = 85 mL/min/1.73 sq.m. Ages 70+ = 75 mL/min/1.73 sq.m. Chronic Kidney Disease: Less than 60 mL/min/1.73 square meters End Stage Renal Disease: Less than 15 mL/min/1.73 square meters Performed By: #### E SR #### [address] [address] GFR Non- >60 Normal [facility] ([place]) Comment on above: Result Comment: GFR Population mean for , Non- Americans Ages 20-29 = 116 mL/min/1.73 sq.m. Ages 30-39 = 107 mL/min/1.73 sq.m. Ages 40-49 = 99 mL/min/1.73 sq.m. Ages 50-59 = 93 mL/min/1.73 sq.m. Ages 60-69 = 85 mL/min/1.73 sq.m. Ages 70+ = 75 mL/min/1.73 sq.m. Chronic Kidney Disease: Less than 60 mL/min/1.73 square meters End Stage Renal Disease: Less than 15 mL/min/1.73 square meters Performed By: #### E SR #### [address] [address] .NEUABSon 02-20-2023 Neutrophil, Absolute 3.5 10 3/mcL Normal 2.3-8.1 [facility] ([place]) Comment on above: Performed By: #### B MP, GFR #### [address] [address] BMPon 02-20-2023 BUN/Creatinine Ratio 8.2 ratio Low 10.0-22.0 [facility] ([place]) Comment on above: Performed By: #### B MP, GFR #### [address] [address] Calcium [Mass/Vol] 9.3 mg/dL Normal 8.7-10.4 [facility] ([place]) Comment on above: Performed By: #### B MP, GFR #### [address] [address] Chloride [Moles/Vol] 106 mmol/L Normal 98-110 [facility] ([place]) Comment on above: Performed By: #### B MP, GFR #### [address] [address] CO2 [Moles/Vol] 28 mmol/L Normal 22-32 [facility] ([place]) Comment on above: Performed By: #### B MP, GFR #### [address] [address] Creatinine [Mass/Vol] 0.97 mg/dL Normal 0.50-1.20 [facility] ([place]) Comment on above: Performed By: #### B MP, GFR #### [address] [address] Electrolyte Balance 6.0 mEq/L Normal 4.0-15.0 [facility] ([place]) Comment on above: Performed By: #### B MP, GFR #### [address] [address] Glucose [Mass/Vol] 86 mg/dL Normal 70-110 [facility] ([place]) Comment on above: Performed By: #### B MP, GFR #### [address] [address] Potassium [Moles/Vol] 4.3 mmol/L Normal 3.5-5.0 [facility] ([place]) Comment on above: Performed By: #### B MP, GFR #### [address] [address] Sodium [Moles/Vol] 140 mmol/L Normal 136-145 [facility] ([place]) Comment on above: Performed By: #### B MP, GFR #### [address] [address] Urea nitrogen [Mass/Vol] 8.0 mg/dL Normal 8.0-22.0 [facility] ([place]) Comment on above: Performed By: #### B MP, GFR #### [address] [address] CBCon 02-20-2023 Erythrocyte distribution width (RBC) [Ratio] 14.8 % Normal 11.5-15.5 [facility] ([place]) Comment on above: Performed By: #### B MP, GFR #### [address] [address] Hematocrit (Bld) [Volume fraction] 35.9 % Normal 34.0-46.0 [facility] ([place]) Comment on above: Performed By: #### B MP, GFR #### [place] [address] Hgb 11.6 G/dL Low 12.0-16.0 [facility] ([place]) Comment on above: Performed By: #### B MP, GFR #### [place] [address] MCH (RBC) [Entitic mass] 29.2 pg Normal 27.0-33.0 [facility] ([place]) Comment on above: Performed By: #### B MP, GFR #### [place] [address] MCHC 32.4 G/dL Normal 32.0-36.0 [facility] ([place]) Comment on above: Performed By: #### B MP, GFR #### [place] [address] MCV (RBC) [Entitic vol] 90.0 fL Normal 80.0-99.0 [facility] ([place]) Comment on above: Performed By: #### B MP, GFR #### [place] [address] Platelet 225 10 3/mcL Normal 150-450 [facility] ([place]) Comment on above: Performed By: #### B MP, GFR #### [place] [address] Platelet mean volume (Bld) [Entitic vol] 9.1 fL Normal 6.6-10.5 [facility] ([place]) Comment on above: Performed By: #### B MP, GFR #### [place] [address] RBC 3.99 10 6/mcL Low 4.10-5.30 [facility] ([place]) Comment on above: Performed By: #### B MP, GFR #### [place] [address] WBC 7.1 10 3/mcL Normal 4.5-10.8 [facility] ([place]) Comment on above: Performed By: #### B MP, GFR #### [place] [address] CMPon 02-20-2023 Albumin Level 3.5 G/dL Normal 3.2-4.8 [facility] ([place]) Comment on above: Performed By: #### E SR #### [place] [id number] Albumin/Globulin [Mass ratio] 1.1 {ratio} Normal 0.9-1.6 [facility] ([place]) Comment on above: Performed By: #### E SR #### [place] [id number] ALP [Catalytic activity/Vol] 106 U/L Normal 38-126 [facility] ([place]) Comment on above: Performed By: #### E SR #### [place] [id number] ALT [Catalytic activity/Vol] 19 U/L Normal 10-49 [facility] ([place]) Comment on above: Performed By: #### E SR #### [place] [id number] AST [Catalytic activity/Vol] 14 U/L Normal 8-34 [facility] ([place]) Comment on above: Performed By: #### E SR #### [place] [id number] Bili Total 0.50 mg/dL Normal 0.20-1.20 [facility] ([place]) Comment on above: Result Comment: Use of this assay is not recommended for patients undergoing treatment with eltrombopag due to the potential for falsely elevated results. Performed By: #### E SR #### [place] [id number] BUN/Creatinine Ratio 8.2 ratio Low 10.0-22.0 [facility] ([place]) Comment on above: Performed By: #### E SR #### [place] [id number] Calcium [Mass/Vol] 9.1 mg/dL Normal 8.7-10.4 [facility] ([place]) Comment on above: Performed By: #### E SR #### [place] [id number] Chloride [Moles/Vol] 108 mmol/L Normal 98-110 [facility] ([place]) Comment on above: Performed By: #### E SR #### [address] [address] CO2 [Moles/Vol] 28 mmol/L Normal 22-32 [facility] ([place]) Comment on above: Performed By: #### E SR #### [address] [address] Creatinine [Mass/Vol] 0.98 mg/dL Normal 0.50-1.20 [facility] ([place]) Comment on above: Performed By: #### E SR #### [address] [address] Electrolyte Balance 4.0 mEq/L Normal 4.0-15.0 [facility] ([place]) Comment on above: Performed By: #### E SR #### [address] [address] Globulin 3.3 G/dL Normal 1.5-3.8 [facility] ([place]) Comment on above: Performed By: #### E SR #### [address] [address] Glucose [Mass/Vol] 91 mg/dL Normal 70-110 [facility] ([place]) Comment on above: Performed By: #### E SR #### [address] [address] Potassium [Moles/Vol] 3.9 mmol/L Normal 3.5-5.0 [facility] ([place]) Comment on above: Performed By: #### E SR #### [address] [address] Sodium [Moles/Vol] 140 mmol/L Normal 136-145 [facility] ([place]) Comment on above: Performed By: #### E SR #### [address] [address] Total Protein 6.8 G/dL Normal 5.7-8.2 [facility] ([place]) Comment on above: Result Comment: No te - New Reference Range in effect 20 Performed By: #### E SR #### [address] [address] Urea nitrogen [Mass/Vol] 8.0 mg/dL Normal 8.0-22.0 [facility] ([place]) Comment on above: Performed By: #### E SR #### [address] [address] LIPIDon 02-20-2023 Cholesterol [Mass/Vol] 232 mg/dL High 50-199 [facility] ([place]) Comment on above: Result Comment: Chol esterol Reference Interval: Less than 200 Desirable 200-239 Borderline high risk 240 and above High risk Performed By: #### B MP, GFR #### [place] [address] Cholesterol in HDL [Mass/Vol] 34 mg/dL Low 40-59 [facility] ([place]) Comment on above: Performed By: #### B MP, GFR #### [place] [address] Cholesterol in LDL [Mass/Vol] 131 mg/dL High 0-129 [facility] ([place]) Comment on above: Performed By: #### B MP, GFR #### [place] [address] Triglyceride [Mass/Vol] 334 mg/dL High 3-149 [facility] ([place]) Comment on above: Performed By: #### B MP, GFR #### [address] [address] NAURon 02-20-2023 Sodium [Moles/Vol] 145 mmol/L Normal [facility] ([place]) Comment on above: Performed By: #### P RO #### [address] [address] OSMOSon 02-20-2023 Osmolality [Osmolality] 287 mosm/kg Normal 275-300 [facility] ([place]) Comment on above: Performed By: #### O SMOS ####[place] [address] OSMOUon 02-20-2023 U Osmolality 598 mOsm/kg Normal 390-1090 [facility] ([place]) Comment on above: Performed By: #### P RO #### [place] [address] PBNPon 02-20-2023 Natriuretic peptide B (Bld) [Mass/Vol] 22 pg/mL Normal 0-450 [facility] ([place]) Comment on above: Result Comment: NT-p roBNP results of less than 300 pg/mL effectively rules out acute congestive heart failure with 99% negative predictive value. Performed By: #### B MP, GFR #### [place] [address] TSHon 02-20-2023 TSH 5.211 mIU/mL High 0.550-4.780 [facility] ([place]) Comment on above: Result Comment: No te - New Reference Range in effect 20 Performed By: #### E SR #### [place] [address] UAon 02-20-2023 Color (U) Yellow Normal [facility] ([place]) Comment on above: Performed By: #### E SR #### [place] [address] Glucose (U) [Mass/Vol] Negative Normal Negative [facility] ([place]) Comment on above: Performed By: #### E SR #### [place] [address] Ketones Ql (U) Negative Normal Neg-Trace [facility] ([place]) Comment on above: Performed By: #### E SR #### [place] [address] UA Appear Clear Normal Clear [facility] ([place]) Comment on above: Performed By: #### E SR #### [place] [id number] UA Blood Negative Normal Neg-Trace [facility] ([place]) Comment on above: Performed By: #### E SR #### [address] [address] UA Leuk Est Negative Normal Negative [facility] ([place]) Comment on above: Performed By: #### E SR #### [address] [address] UA Nitrite Negative Normal Negative [facility] ([place]) Comment on above: Performed By: #### E SR #### [place] [id number] UA pH 5.5 Normal 5.0 - 8.0 [facility] ([place]) Comment on above: Performed By: #### E SR #### [place] [id number] UA Protein Negative Normal Negative [facility] ([place]) Comment on above: Performed By: #### E SR #### [place] [id number] UA Spec Grav 1.015 Normal 1.006-1.029 [facility] ([place]) Comment on above: Performed By: #### E SR #### [place] [address] UA Specimen Type Clean Catch Normal [facility] ([place]) Comment on above: Performed By: #### E SR #### [place] [address] UA Urobilinogen 0.2 E.U./dL Normal 0.2-1.0 [facility] ([place]) Comment on above: Performed By: #### E SR #### [place] [address] Urobilinogen (U) [Mass/Vol] Negative Normal Neg-Trace [facility] ([place]) Comment on above: Performed By: #### E SR #### [place] [address] XR CHEST 1 VIEWon 02-20-2023 XR CHEST 1 VIEW ORIGINAL EXAMINATION: ONE XRAY VIEW OF THE CHEST 02/20/2023 7:15 am COMPARISON: Chest x-ray on 02/25/2020 HISTORY: ORDERING SYSTEM PROVIDED HISTORY: Reason for Exam: Chest Pain FINDINGS: The heart size and mediastinal contours are normal. There is no lung infiltrate or edema. No pneumothorax or pleural fluid is present. The skeletal structures are unremarkable. IMPRESSION: No acute radiographic abnormality of the chest. Interpreted by: Jude Schaefer MD Preliminary Report By: Jude Schaefer MD Electronically signed By Jude Schaefer MD Dictated Date: 02/20/2023 7:46:05 AM Prelim Date: 02/20/2023 7:47:12 AM Sign Date: 02/20/2023 7:47:12 AM Ordering Provider: ISAIAH HARPER [facility] ([place]) CBC W Auto Differential pane l (Bld)on 02-16-2023 Basophils (Bld) [#/Vol] 0.05 10*3/uL <0.11 k/uL [facility] Basophils/100 WBC (Bld) 0.6 % [facility] Differential cell count method Nom (Bld) Auto [facility] Eosinophils (Bld) [#/Vol] 0.19 10*3/uL <0.46 k/uL [facility] Eosinophils/100 WBC (Bld) 2.4 % [facility] Erythrocyte distribution width (RBC) [Ratio] 13.8 % 11.5 - 15.0 % [facility] Hematocrit (Bld) [Volume fraction] 41.0 % 36.0 - 46.0 % [facility] Hemoglobin (Bld) [Mass/Vol] 13.3 g/dL 11.5 - 15.5 g/dL [facility] Immature granulocytes (Bld) [#/Vol] 0.07 10*3/uL <0.10 k/uL [facility] Immature granulocytes/100 WBC (Bld) 0.9 % [facility] Lymphocytes (Bld) [#/Vol] 2.18 10*3/uL 1.00 - 4.00 k/uL [facility] Lymphocytes/100 WBC (Bld) 28.1 % [facility] MCH (RBC) [Entitic mass] 30.2 pg 26.0 - 34.0 pg [facility] MCHC (RBC) [Mass/Vol] 32.4 g/dL 30.5 - 36.0 g/dL [facility] MCV (RBC) [Entitic vol] 93.0 fL 80.0 - 100.0 fL [facility] Monocytes (Bld) [#/Vol] 0.40 10*3/uL <0.87 k/uL [facility] Monocytes/100 WBC (Bld) 5.1 % [facility] Neutrophils (Bld) [#/Vol] 4.88 10*3/uL 1.45 - 7.50 k/uL [facility] Neutrophils/100 WBC (Bld) 62.9 % [facility] Nucleated RBC (Bld) [#/Vol] <0.01 k/uL [facility] Nucleated RBC/100 WBC (Bld) [Ratio] 0.0 /100 WBC [facility] Platelet mean volume (Bld) [Entitic vol] 11.4 fL 9.0 - 12.7 fL [facility] Platelets (Bld) [#/Vol] 269 10*3/uL 150 - 400 k/uL [facility] RBC (Bld) [#/Vol] 4.41 10*6/uL 3.90 - 5.2 0 m/uL [facility] WBC (Bld) [#/Vol] 7.77 10*3/uL 3.70 - 11. 00 k/uL [facility] Comprehensive metabolic 2000 panelon 02-16-2023 Albumin [Mass/Vol] 4.6 g/dL 3.9 - 4.9 g/dL [facility] ALP [Catalytic activity/Vol] 123 U/L 34 - 123 U/L [facility] ALT [Catalytic activity/Vol] 17 U/L 7 - 38 U/L [facility] Anion gap [Moles/Vol] 12 mmol/L 9 - 18 mmol/L [facility] AST [Catalytic activity/Vol] 13 U/L 13 - 35 U/L [facility] Bilirubin [Mass/Vol] 0.7 mg/dL 0.2 - 1 .3 mg/dL [facility] Calcium [Mass/Vol] 9.9 mg/dL 8.5 - 10. 2 mg/dL [facility] Chloride [Moles/Vol] 102 mmol/L 97 - 10 5 mmol/L [facility] CO2 [Moles/Vol] 24 mmol/L 22 - 30 mmol/L [facility] Creatinine [Mass/Vol] 1.10 mg/dL High 0.58 - 0.96 mg/dL [facility] Estimated Glomerular Filtration Rate 64 mL/min/1.73m >=60 mL/min/1.73m [facility] Glucose [Mass/Vol] 104 mg/dL High 74 - 99 mg/dL [facility] Potassium [Moles/Vol] 4.3 mmol/L 3.7 - 5.1 mmol/L [facility] Protein [Mass/Vol] 7.5 g/dL 6.3 - 8.0 g/dL [facility] Sodium [Moles/Vol] 138 mmol/L 136 - 144 mmol/L [facility] Urea nitrogen [Mass/Vol] 14 mg/dL 7 - 21 mg/dL [facility] HEP C AB IA W/CONF SCRNon HCV Ab Ql (S) Negative Negative [facility] HIV 1+2 Ab IA Qlon 3 HIV 1 and 2 Ab IA.rapid Nom [facility] HIV 1+2 Ab+HIV1 p24 Ag IA Ql Non-Reactive Nonreactive [facility] HIV Interpretation [facility] Iron and Iron binding capaci ty panelon 02-16-2023 Iron [Mass/Vol] 55 ug/dL 41 - 186 ug/dL [facility] Iron binding capacity [Mass/Vol] 328 ug/dL 232 - 386 ug/dL [facility] Iron/TIBC [Molar ratio] 16.8 % 15.0 - 57.0 % [facility] Lipid 1996 panelon Cholesterol [Mass/Vol] 292 mg/dL High <200 mg/dL [facility] Cholesterol in HDL [Mass/Vol] 45 mg/dL >39 mg/dL [facility] Cholesterol in LDL [Mass/Vol] 211 mg/dL High <100 mg/dL [facility] Cholesterol in LDL/Cholesterol in HDL [Mass ratio] 4.69 {ratio} High <2.54 [facility] Cholesterol in VLDL [Mass/Vol] 36 mg/dL High <30 mg/dL [facility] Cholesterol non HDL [Mass/Vol] 247 mg/dL High <130 mg/dL [facility] Cholesterol.total/Evan sterol in HDL [Mass ratio] 6.49 {ratio} High <5.10 [facility] Fasting Time 19 hrs [facility] Triglyceride [Mass/Vol] 179 mg/dL High <150 mg/dL [facility] MAGNESIUM [facility] 02-16-2023 Magnesium [Mass/Vol] 2.1 mg/dL 1.7 - 2 .3 mg/dL [facility] TSH Don 02-16-2023 TSH Qn 2.220 m[IU]/L 0.270 - 4.200 mIU/L [facility] VITAMIN B12 BLOODon 02-17-20 Cobalamin (Vitamin B12) [Mass/Vol] 297 pg/mL 232 - 1,245 pg/mL [facility] VITAMIN D 25 HYDROXYon 02-16 25-hydroxyvitamin D3 [Mass/Vol] 24.6 ng/mL Low 31.0 - 80.0 ng/mL [facility] Absolute lymphocyte countOrd ered By: Dr. Rosa on 02-10-2023 Lymphocytes Auto (Unsp spec) [#/Vol] 2.82 10*3/uL 0.83-4.51 [facility] Basophil percentageOrdered B y: Dr. Rosa on 02-10-2023 Basophils/100 WBC (Bld) 0.7 % 0-1 [facility] Bilirubin [Mass/Vol] 0.40 mg/dL 0.20-1.00 [facility] Comment on above: For patients on eltr ombopag therapy, use of Dimension [place] TBIL is not recommended. Chloride [Moles/Vol] 104 mmol/L 98-107 [facility] Eosinophils/100 WBC (Bld) 2.4 % 0-5 [facility] Glucose [Mass/Vol] 96 mg/dL 74-106 [facility] Lactate [Moles/Vol] 0.4 mmol/L 0.4-2.0 [facility] Neutrophils (Bld) [#/Vol] 5.7 10*3/uL 2.0-7.7 [facility] Neutrophils/100 WBC (Bld) 60.2 % 47-70 [facility] Potassium [Moles/Vol] 3.6 mmol/L 3.5-5.1 [facility] Protein [Mass/Vol] 7.7 g/dL 6.4-8.2 [facility] Sodium [Moles/Vol] 138 mmol/L 136-145 [facility] WBC (Bld) [#/Vol] 9.4 10*3/uL 4.4-11.0 [facility] Basophil percentage 0 SEEN /hpf 0-5 [facility] Bilirubin Test strip Ql (U)O rdered By: Dr. Rosa on 02-10-2023 Bilirubin Ql (U) Negative Negative [facility] Blood erythrocytes count (nu mber/volume)Ordered By: Dr. Rosa on 02-10-2023 RBC (Bld) [#/Vol] 4.38 10*6/uL 4.2-5.4 [facility] Blood hemoglobin measurement (mass/volume)Ordered By: Dr. Rosa on 02-10-2023 Hemoglobin (Bld) [Mass/Vol] 12.9 g/dL 12.0-15.0 [facility] Blood lymphocytes/100 leukoc ytesOrdered By: Dr. Rosa on 02-10-2023 Lymphocytes/100 WBC (Bld) 29.9 % 19-41 [facility] Blood monocytes/100 leukocyt esOrdered By: Dr. Rosa on 02-10-2023 Monocytes/100 WBC (Bld) 5.3 % 0-10 [facility] Blood platelet mean volumeOr dered By: Dr. Rosa on 02-10-2023 Platelet mean volume (Bld) [Entitic vol] 10.7 fL 6.2-12.0 [facility] Determination of erythrocyte mean corpuscular volume (MCV)Ordered By: Dr. Rosa on 02-10-2023 MCV (RBC) [Entitic vol] 92.0 fL 81-99 [facility] Hematocrit Auto (Bld) [Volum e fraction]Ordered By: Dr. Rosa on 02-10-2023 Hematocrit (Bld) [Volume fraction] 40.3 % 37-47 [facility] Ketones Test strip Ql (U)Ord ered By: Dr. Rosa on 02-10-2023 Ketones Ql (U) Negative Negative [facility] Laboratory - Chemistry and C hemistry - challengeOrdered By: Dr. Rosa on 02-10-2023 ALP [Catalytic activity/Vol] 116 U/L 45-117 [facility] ALT [Catalytic activity/Vol] 24 U/L 13-56 [facility] CO2 [Moles/Vol] 29.0 mmol/L 21.0-32.0 [facility] Globulin (S) [Mass/Vol] 3.8 g/dL 2.2-4.2 [facility] Lipase [Catalytic activity/Vol] 37 U/L 13-75 [facility] Comment on above: Please note:LIPASE r evised reference range effective 22. New Lipase methodology. Expected to produce lower values than the previous assay method. NEW Reference Range: 13 - 75 U/L Urea nitrogen/Creatinine [Mass ratio] 9.3 mg/mg 10-20 [facility] HCG ( test) Ql (U) Negative [facility] Comment on above: Very dilute urine sp ecimens, as indicated by a low specificgravity, may not contain client care representative levels of hCG. If is still suspected, a first morning urinespecimen should be collected 48 hours later and tested. Laboratory - Hematology and Cell countsOrdered By: Dr. Rosa on 02-10-2023 Erythrocyte distribution width (RBC) [Entitic vol] 45.7 fL 35.1-43.9 [facility] Erythrocyte distribution width (RBC) [Ratio] 13.6 % 11.6-14.6 [facility] Immature granulocytes/100 WBC (Bld) 1.500 % 0.0-0.9 [facility] Comment on above: IG% - Immature Granu locytes (promyelocytes, myelocytes and metamyelocytes) > 1% indicates that a LEFT SHIFT is Present. MCH (RBC) [Entitic mass] 29.5 pg 27.0-32.0 [facility] Nucleated RBC/100 WBC (Bld) [Ratio] 0 % 0-5 [facility] MCHC Auto (RBC) [Mass/Vol]Or dered By: Dr. Rosa on 02-10-2023 MCHC (RBC) [Mass/Vol] 32.0 g/dL 32-36 [facility] Mucus LM Ql (Urine sed)Order ed By: Dr. Rosa on 02-10-2023 Mucus Ql (Urine sed) 0 SEEN /hpf [facility] Nitrite Test strip Ql (U)Ord ered By: Dr. Rosa on 02-10-2023 Nitrite Ql (U) Negative Negative [facility] No Panel InformationOrdered By: Dr. Rosa on 02-10-2023 Estimated Creatinine Clearance Calc 50.68 ml/min [facility] Estimated GFR (MDRD) Amer 71 mL/min >60 [facility] Comment on above: GFR Calc Estimated GFR (MDRD) Non-Af Amer 59 mL/min >60 [facility] Comment on above: Non- GFR Calc Troponin I High Sensitivity 5 pg/mL 3.0-54.0 [facility] Comment on above: Please Note: New Maru t Units and Gender Specific Reference Ranges. For more information see Policy Stat Procedure [place] High Sensitivity Troponin (TNIH) and attachments. Platelets bldOrdered By: Dr. Rosa on 02-10-2023 Platelets (Bld) [#/Vol] 244 10*3/uL 150-450 [facility] Protein Test strip Ql (U)Ord ered By: Dr. Rosa on 02-10-2023 Protein Ql (U) Negative Negative [facility] Serum or plasma albumin shelley urement (mass/volume)Ordered By: Dr. Rosa on 02-10-2023 Albumin [Mass/Vol] 3.9 g/dL 3.2-5.0 [facility] Serum or plasma albumin/glob ulin mass ratioOrdered By: Dr. Rosa on 02-10-2023 Albumin/Globulin [Mass ratio] 1.0 {ratio} 0.9-2.4 [facility] Serum or plasma calcium shelley urement (mass/volume)Ordered By: Dr. Rosa on 02-10-2023 Calcium [Mass/Vol] 9.3 mg/dL 8.5-10.1 [facility] Serum or plasma creatinine m easurement (mass/volume)Ordered By: Dr. Rosa on 02-10-2023 Creatinine [Mass/Vol] 1.08 mg/dL 0.55-1.02 [facility] Comment on above: The validity of the calculated GFR & GFRAA in patients over 70 years has not been determined. Clinical correlation is essential. Serum or plasma urea nitroge n measurement (mass/volume)Ordered By: Dr. Rosa on 02-10-2023 Urea nitrogen [Mass/Vol] 10 mg/dL 7-18 [facility] Squamous epithelial cells de tection in urine sediment by light microscopyOrdered By: Dr. Rosa on 02-10-2023 Epithelial cells.squamous LM Ql (Urine sed) 10-25 SEEN /hpf 5-10 [facility] Thin prep Papanicolaou smear with manual screeningOrdered By: Dr. Rosa on 02-10-2023 Thin prep Papanicolaou smear with manual screening 16 U/L 15-37 [facility] Thin prep Papanicolaou smear with manual screening 5 5-15 [facility] Urine blood detectionOrdered By: Dr. Rosa on 02-10-2023 RBC Ql (U) Negative Negative [facility] RBC Ql (U) 0 SEEN /hpf 0-5 [facility] Urine clarityOrdered By: Dr. Rosa on 02-10-2023 Clarity (U) Sl. Cloudy Clear [facility] Urine color determinationOrd ered By: Dr. Rosa on 02-10-2023 Color (U) Yellow Yellow [facility] Urine glucose detectionOrder ed By: Dr. Rosa on 02-10-2023 Glucose Ql (U) Normal mg/dl Normal [facility] Urine leukocyte esterase det ection by dipstickOrdered By: Dr. Rosa on 02-10-2023 Leukocyte esterase Test strip Ql (U) Negative Negative [facility] Urine pHOrdered By: Dr. Rosa on 02-10-2023 pH (U) 6.5 [pH] 5.0 - 8.0 [facility] Urine sediment bacteria coun t by microscopy (number/high power field)Ordered By: Dr. Rosa on 02-10-2023 Bacteria LM.HPF (Urine sed) [#/Area] 1 /[HPF] None Seen [facility] Urine specific gravity measu rementOrdered By: Dr. Rosa on 02-10-2023 Specific gravity (U) [Rel density] 1.015 1.002-1.030 [facility] Urobilinogen Auto test strip Ql (U)Ordered By: Dr. Rosa on 02-10-2023 Urobilinogen Ql (U) Normal mg/dl Normal [facility] LABORATORYOrdered By: SYSTEM SYSTEM on 12-24-2022 Albumin BCP dye [Mass/Vol] 4.4 G/dL Invalid Interpretation Code 3.5 - 5.0 G/dL AO ADM SS Albumin/Globulin [Mass ratio] 1.2 {ratio} Invalid Interpretation Code 1.1 - 2.5 ratio AO ADM SS ALP [Catalytic activity/Vol] 140 U/L Invalid Interpretation Code 40 - 135 U/L AO ADM SS ALT With P-5'-P [Catalytic activity/Vol] 31 U/L Invalid Interpretation Code 14 - 59 U/L AO ADM SS AST With P-5'-P [Catalytic activity/Vol] 40 U/L Invalid Interpretation Code 10 - 40 U/L AO ADM SS Bilirubin [Mass/Vol] 0.8 mg/dL Invalid Interpretation Code 0.2 - 1.0 mg/dL AO ADM SS Calcium [Mass/Vol] 9.5 mg/dL Invalid Interpretation Code 8.4 - 10.2 mg/dL AO ADM SS Chloride [Moles/Vol] 99 mmol/L Invalid Interpretation Code 98 - 107 mmol/L AO ADM SS CO2 [Moles/Vol] 25 mmol/L Invalid Interpretation Code 22 - 29 mmol/L AO ADM SS Creatinine [Mass/Vol] 1.02 mg/dL Invalid Interpretation Code 0.55 - 1.02 mg/dL AO ADM SS Electrolyte Balance 11.0 mEq/L Invalid Interpretation Code 4.0 - 15.0 mEq/L AO ADM SS GFR/1.73 sq M.predicted among blacks MDRD (S/P/Bld) [Vol rate/Area] 72 ml/min/1.73sqm Invalid Interpretation Code AO Chemistry S GFR/1.73 sq M.predicted among non-blacks MDRD (S/P/Bld) [Vol rate/Area] 59 ml/min/1.73sqm Invalid Interpretation Code AO Chemistry S Globulin 3.8 G/dL Invalid Interpretation Code AO ADM SS Glucose [Mass/Vol] 109 mg/dL Invalid Interpretation Code 70 - 105 mg/dL AO ADM SS Lipase [Catalytic activity/Vol] 32 U/L Invalid Interpretation Code 16 - 77 U/L AO ADM SS Potassium [Moles/Vol] 5.6 mmol/L Invalid Interpretation Code 3.5 - 5.1 mmol/L AO ADM SS Protein [Mass/Vol] 8.2 G/dL Invalid Interpretation Code 6.4 - 8.2 G/dL AO ADM SS Sodium [Moles/Vol] 135 mmol/L Invalid Interpretation Code 136 - 145 mmol/L AO ADM SS Urea nitrogen [Mass/Vol] 12 mg/dL Invalid Interpretation Code 7 - 18 mg/dL AO ADM SS Urea nitrogen/Creatinine [Mass ratio] 12 ratio Invalid Interpretation Code 7 - 27 ratio AO ADM SS LABORATORYOrdered By: Griffin Reyez on 12-24-2022 Appearance (U) Clear (12/24/22 7:57 PM) Invalid Interpretation Code Clear AO Auto Urine SS Basophil, Absolute 0.2 103/mcL Invalid Interpretation Code 0.0 - 0.2 10^3/mcL AO Workflow SS Basophils/100 WBC (Bld) 1.6 % Invalid Interpretation Code 0.0 - 2.5 % AO Workflow SS Bilirubin Ql (U) Negative (12/24/22 7:57 PM) Invalid Interpretation Code Negative AO Auto Urine SS Color (U) Yellow (12/24/22 7:57 PM) Invalid Interpretation Code AO Auto Urine SS Eosinophil, Absolute 0.2 103/mcL Invalid Interpretation Code 0.0 - 0.4 10^3/mcL AO Workflow SS Eosinophils/100 WBC (Bld) 1.7 % Invalid Interpretation Code 0.0 - 7.0 % AO Workflow SS Erythrocyte distribution width (RBC) [Ratio] 14.6 % Invalid Interpretation Code 11.5 - 14.5 % AO Workflow SS Glucose Test strip (U) [Mass/Vol] Negative Invalid Interpretation Code Negativemg/d L AO Auto Urine SS Hematocrit (Bld) [Volume fraction] 38.7 % Invalid Interpretation Code 37.0 - 47.0 % AO Workflow SS Hemoglobin (Bld) [Mass/Vol] 12.8 G/dL Invalid Interpretation Code 12.0 - 16.0 G/dL AO Workflow SS Hemoglobin Auto test strip (U) [Mass/Vol] Trace *ABN* (12/24/22 7:57 PM) Invalid Interpretation Code Negative AO Auto Urine SS Ketones Ql (U) Negative Invalid Interpretation Code Negativemg/d L AO Auto Urine SS Lymphocyte, Absolute 4.2 103/mcL Invalid Interpretation Code 0.8 - 3.9 10^3/mcL AO Workflow SS Lymphocytes/100 WBC (Bld) 31.3 % Invalid Interpretation Code 10.0 - 50.0 % AO Workflow SS MCH (RBC) [Entitic mass] 29.5 pg Invalid Interpretation Code 27.0 - 31.2 pg AO Workflow SS MCHC 33.2 G/dL Invalid Interpretation Code 33.0 - 37.0 G/dL AO Workflow SS MCV (RBC) [Entitic vol] 89.0 fL Invalid Interpretation Code 80.0 - 94.0 fL AO Workflow SS Monocyte distribution width Auto (Bld) [Entitic vol] 21.27 Invalid Interpretation Code 0.00 - 20.00 AO Workflow SS Comment on above: Result Comment: For adults in ED, MDW>20.0 may be associated with a higher risk of sepsis during the first 12hrs of hospital admission Monocyte, Absolute 0.8 103/mcL Invalid Interpretation Code 0.2 - 1.0 10^3/mcL AO Workflow SS Monocytes/100 WBC (Bld) 6.2 % Invalid Interpretation Code 1.7 - 13.0 % AO Workflow SS Neutrophil, Absolute 7.9 103/mcL Invalid Interpretation Code 2.9 - 6.2 10^3/mcL AO Workflow SS Neutrophils/100 WBC (Bld) 59.2 % Invalid Interpretation Code 37.0 - 80.0 % AO Workflow SS Platelet mean volume (Bld) [Entitic vol] 8.8 fL Invalid Interpretation Code 7.4 - 10.4 fL AO Workflow SS Platelets (Bld) [#/Vol] 293 103/mcL Invalid Interpretation Code 130 - 400 10^3/mcL AO Workflow SS RBC (Bld) [#/Vol] 4.35 106/mcL Invalid Interpretation Code 4.20 - 5.40 10^6/mcL AO Workflow SS UA Leuk Est Negative (12/24/22 7:57 PM) Invalid Interpretation Code Negative AO Auto Urine SS UA Nitrite Negative (12/24/22 7:57 PM) Invalid Interpretation Code Negative AO Auto Urine SS UA pH 5.5 (12/24/22 7:57 PM) Invalid Interpretation Code 5.0 - 8.0 AO Auto Urine SS UA Protein Negative Invalid Interpretation Code Negativemg/d L AO Auto Urine SS UA Spec Grav >=1.030 *ABN* (12/24/22 7:57 PM) Invalid Interpretation Code 1.015-1.025 AO Auto Urine SS UA Specimen Type Clean Catch (12/24/22 7:57 PM) Invalid Interpretation Code AO Auto Urine SS UA Urobilinogen 0.2 E.U./dL Invalid Interpretation Code 0.2-1.0E.U./ dL AO Auto Urine SS WBC (Bld) [#/Vol] 13.3 103/mcL Invalid Interpretation Code 4.6 - 10.8 10^3/mcL AO Workflow SS Absolute lymphocyte countOrd ered By: Dr. Hood on 11-18-2022 Lymphocytes Auto (Unsp spec) [#/Vol] 2.42 10*3/uL 0.83-4.51 [facility] Basophil percentageOrdered B y: Dr. Hood on 11-18-2022 Basophil percentage 0 SEEN /hpf 0-5 [facility] Basophils/100 WBC (Bld) 0.7 % 0-1 [facility] Bilirubin [Mass/Vol] 0.40 mg/dL 0.20-1.00 [facility] Comment on above: For patients on eltr ombopag therapy, use of Dimension [place] TBIL is not recommended. Chloride [Moles/Vol] 105 mmol/L 98-107 [facility] Eosinophils/100 WBC (Bld) 3.0 % 0-5 [facility] Glucose [Mass/Vol] 110 mg/dL 74-106 [facility] Comment on above: Fasting Glucose resu lt from 100 to 125 mg/dL suggests IMPAIRED HOMEOSTASIS per A.D.A. criteria. Neutrophils (Bld) [#/Vol] 4.8 10*3/uL 2.0-7.7 [facility] Neutrophils/100 WBC (Bld) 58.9 % 47-70 [facility] Potassium [Moles/Vol] 4.2 mmol/L 3.5-5.1 [facility] Protein [Mass/Vol] 7.5 g/dL 6.4-8.2 [facility] Sodium [Moles/Vol] 140 mmol/L 136-145 [facility] WBC (Bld) [#/Vol] 8.1 10*3/uL 4.4-11.0 [facility] Bilirubin Test strip Ql (U)O rdered By: Dr. Hood on 11-18-2022 Bilirubin Ql (U) Negative Negative [facility] Blood erythrocytes count (nu mber/volume)Ordered By: Dr. Hood on 11-18-2022 RBC (Bld) [#/Vol] 4.02 10*6/uL 4.2-5.4 [facility] Blood hemoglobin measurement (mass/volume)Ordered By: Dr. Hood on 11-18-2022 Hemoglobin (Bld) [Mass/Vol] 11.9 g/dL 12.0-15.0 [facility] Blood lymphocytes/100 leukoc ytesOrdered By: Dr. Hood on 11-18-2022 Lymphocytes/100 WBC (Bld) 29.9 % 19-41 [facility] Blood monocytes/100 leukocyt esOrdered By: Dr. Hood on 11-18-2022 Monocytes/100 WBC (Bld) 5.8 % 0-10 [facility] Blood platelet mean volumeOr dered By: Dr. Hood on 11-18-2022 Platelet mean volume (Bld) [Entitic vol] 11.2 fL 6.2-12.0 [facility] Determination of erythrocyte mean corpuscular volume (MCV)Ordered By: Dr. Hood on 11-18-2022 MCV (RBC) [Entitic vol] 92.5 fL 81-99 [facility] Hematocrit Auto (Bld) [Volum e fraction]Ordered By: Dr. Hood on 11-18-2022 Hematocrit (Bld) [Volume fraction] 37.2 % 37-47 [facility] Ketones Test strip Ql (U)Ord ered By: Dr. Hood on 11-18-2022 Ketones Ql (U) Negative Negative [facility] Laboratory - Chemistry and C hemistry - challengeOrdered By: Dr. Hood on 11-18-2022 ALP [Catalytic activity/Vol] 129 U/L 45-117 [facility] ALT [Catalytic activity/Vol] 27 U/L 13-56 [facility] CO2 [Moles/Vol] 30.0 mmol/L 21.0-32.0 [facility] Globulin (S) [Mass/Vol] 3.9 g/dL 2.2-4.2 [facility] Lipase [Catalytic activity/Vol] 137 U/L 73-393 [facility] Urea nitrogen/Creatinine [Mass ratio] 11.2 mg/mg 10-20 [facility] Laboratory - Hematology and Cell countsOrdered By: Dr. Hood on 11-18-2022 Erythrocyte distribution width (RBC) [Entitic vol] 47.9 fL 35.1-43.9 [facility] Erythrocyte distribution width (RBC) [Ratio] 14.1 % 11.6-14.6 [facility] Immature granulocytes/100 WBC (Bld) 1.700 % 0.0-0.9 [facility] Comment on above: IG% - Immature Granu locytes (promyelocytes, myelocytes and metamyelocytes) > 1% indicates that a LEFT SHIFT is Present. MCH (RBC) [Entitic mass] 29.6 pg 27.0-32.0 [facility] Nucleated RBC/100 WBC (Bld) [Ratio] 0 % 0-5 [facility] MCHC Auto (RBC) [Mass/Vol]Or dered By: Dr. Hood on 11-18-2022 MCHC (RBC) [Mass/Vol] 32.0 g/dL 32-36 [facility] Mucus LM Ql (Urine sed)Order ed By: Dr. Hood on 11-18-2022 Mucus Ql (Urine sed) 0 SEEN /hpf [facility] Nitrite Test strip Ql (U)Ord ered By: Dr. Hood on 11-18-2022 Nitrite Ql (U) Negative Negative [facility] No Panel InformationOrdered By: Dr. Hood on 11-18-2022 Estimated Creatinine Clearance Calc 51.16 ml/min [facility] Estimated GFR (MDRD) Amer 72 mL/min >60 [facility] Comment on above: GFR Calc Estimated GFR (MDRD) Non-Af Amer 59 mL/min >60 [facility] Comment on above: Non- GFR Calc Platelets bldOrdered By: Dr. Hood on 11-18-2022 Platelets (Bld) [#/Vol] 223 10*3/uL 150-450 [facility] Protein Test strip Ql (U)Ord ered By: Dr. Hood on 11-18-2022 Protein Ql (U) Negative Negative [facility] Serum or plasma albumin shelley urement (mass/volume)Ordered By: Dr. Hood on 11-18-2022 Albumin [Mass/Vol] 3.6 g/dL 3.2-5.0 [facility] Serum or plasma albumin/glob ulin mass ratioOrdered By: Dr. Hood on 11-18-2022 Albumin/Globulin [Mass ratio] 0.9 {ratio} 0.9-2.4 [facility] Serum or plasma calcium shelley urement (mass/volume)Ordered By: Dr. Hood on 11-18-2022 Calcium [Mass/Vol] 9.3 mg/dL 8.5-10.1 [facility] Serum or plasma creatinine m easurement (mass/volume)Ordered By: Dr. Hood on 11-18-2022 Creatinine [Mass/Vol] 1.07 mg/dL 0.55-1.02 [facility] Comment on above: The validity of the calculated GFR & GFRAA in patients over 70 years has not been determined. Clinical correlation is essential. Serum or plasma urea nitroge n measurement (mass/volume)Ordered By: Dr. Hood on 11-18-2022 Urea nitrogen [Mass/Vol] 12 mg/dL 7-18 [facility] Squamous epithelial cells de tection in urine sediment by light microscopyOrdered By: Dr. Hood on 11-18-2022 Epithelial cells.squamous LM Ql (Urine sed) 25-50 SEEN /hpf 5-10 [facility] Thin prep Papanicolaou smear with manual screeningOrdered By: Dr. Hood on 11-18-2022 Thin prep Papanicolaou smear with manual screening 12 U/L 15-37 [facility] Thin prep Papanicolaou smear with manual screening 5 5-15 [facility] Urine blood detectionOrdered By: Dr. Hood on 11-18-2022 RBC Ql (U) Negative Negative [facility] RBC Ql (U) 0 SEEN /hpf 0-5 [facility] Urine clarityOrdered By: Dr. Hood on 11-18-2022 Clarity (U) Clear Clear [facility] Urine color determinationOrd ered By: Dr. Hood on 11-18-2022 Color (U) Yellow Yellow [facility] Urine glucose detectionOrder ed By: Dr. Hood on 11-18-2022 Glucose Ql (U) Normal mg/dl Normal [facility] Urine leukocyte esterase det ection by dipstickOrdered By: Dr. Hood on 11-18-2022 Leukocyte esterase Test strip Ql (U) Negative Negative [facility] Urine pHOrdered By: Dr. Janice strickland on 11-18-2022 pH (U) 8.0 [pH] 5.0 - 8.0 [facility] Urine sediment bacteria coun t by microscopy (number/high power field)Ordered By: Dr. Hood on 11-18-2022 Bacteria LM.HPF (Urine sed) [#/Area] 0 /[HPF] None Seen [facility] Urine specific gravity measu rementOrdered By: Dr. Hood on 11-18-2022 Specific gravity (U) [Rel density] 1.015 1.002-1.030 [facility] Urobilinogen Auto test strip Ql (U)Ordered By: Dr. Hood on 11-18-2022 Urobilinogen Ql (U) Normal mg/dl Normal [facility] LABORATORYOrdered By: Flora Hassan on 10-12-2022 Appearance (U) Cloudy *ABN* (10/12/22 10:13 AM) Invalid Interpretation Code Clear AO Auto Urine SS Bacteria LM.HPF (Urine sed) [#/Area] 1 /[HPF] Invalid Interpretation Code AO Auto Urine SS Bilirubin Ql (U) Negative (10/12/22 10:13 AM) Invalid Interpretation Code Negative AO Auto Urine SS Color (U) Yellow (10/12/22 10:13 AM) Invalid Interpretation Code AO Auto Urine SS Crystals.amorphous LM.HPF (Urine sed) [#/Area] 1 /[HPF] Invalid Interpretation Code AO Auto Urine SS Glucose Test strip (U) [Mass/Vol] Negative Invalid Interpretation Code Negativemg/d L AO Auto Urine SS Hemoglobin Auto test strip (U) [Mass/Vol] Negative (10/12/22 10:13 AM) Invalid Interpretation Code Negative AO Auto Urine SS Ketones Ql (U) Negative Invalid Interpretation Code Negativemg/d L AO Auto Urine SS UA Leuk Est Negative (10/12/22 10:13 AM) Invalid Interpretation Code Negative AO Auto Urine SS UA Mucous 2+ /HPF Invalid Interpretation Code AO Auto Urine SS UA Nitrite Negative (10/12/22 10:13 AM) Invalid Interpretation Code Negative AO Auto Urine SS UA pH 5.5 (10/12/22 10:13 AM) Invalid Interpretation Code 5.0 - 8.0 AO Auto Urine SS UA Protein Negative Invalid Interpretation Code Negativemg/d L AO Auto Urine SS UA RBC None Seen /HPF Invalid Interpretation Code None Seen/HPF AO Auto Urine SS UA Spec Grav >=1.030 *ABN* (10/12/22 10:13 AM) Invalid Interpretation Code 1.015-1.025 AO Auto Urine SS UA Specimen Type Clean Catch (10/12/22 10:13 AM) Invalid Interpretation Code AO Auto Urine SS UA Squam Epithelial LOADED /HPF Invalid Interpretation Code None Seen/HPF AO Auto Urine SS UA Urobilinogen 0.2 E.U./dL Invalid Interpretation Code 0.2-1.0E.U./ dL AO Auto Urine SS WBC LM.HPF (Urine sed) [#/Area] 0-5 /HPF Invalid Interpretation Code None Seen/HPF AO Auto Urine SS Absolute lymphocyte countOrd ered By: Dr. Cassidy on 09-07-2022 Lymphocytes Auto (Unsp spec) [#/Vol] 4.36 10*3/uL 0.83-4.51 [facility] Basophil percentageOrdered B y: Dr. Cassidy on 09-07-2022 Basophils/100 WBC (Bld) 0.8 % 0-1 [facility] Chloride [Moles/Vol] 105 mmol/L 98-107 [facility] Eosinophils/100 WBC (Bld) 2.6 % 0-5 [facility] Glucose [Mass/Vol] 139 mg/dL 74-106 [facility] Comment on above: Slight Lipemia, Resu lt may be falsely increased.Fasting Glucose result greater than or equal to 126 mg/dL suggests DIABETES MELLITUS per A.D.A. criteria. Neutrophils (Bld) [#/Vol] 6.5 10*3/uL 2.0-7.7 [facility] Neutrophils/100 WBC (Bld) 53.3 % 47-70 [facility] Potassium [Moles/Vol] 4.1 mmol/L 3.5-5.1 [facility] Comment on above: Slight Hemolysis, Re sult may be falsely increased.-Slight Lipemia, Result may be falsely increased. Sodium [Moles/Vol] 139 mmol/L 136-145 [facility] WBC (Bld) [#/Vol] 12.1 10*3/uL 4.4-11.0 [facility] Blood erythrocytes count (nu mber/volume)Ordered By: Dr. Cassidy on 09-07-2022 RBC (Bld) [#/Vol] 4.49 10*6/uL 4.2-5.4 [facility] Blood hemoglobin measurement (mass/volume)Ordered By: Dr. Cassidy on 09-07-2022 Hemoglobin (Bld) [Mass/Vol] 13.5 g/dL 12.0-15.0 [facility] Blood lymphocytes/100 leukoc ytesOrdered By: Dr. Cassidy on 09-07-2022 Lymphocytes/100 WBC (Bld) 36.0 % 19-41 [facility] Blood monocytes/100 leukocyt esOrdered By: Dr. Cassidy on 09-07-2022 Monocytes/100 WBC (Bld) 5.4 % 0-10 [facility] Blood platelet mean volumeOr dered By: Dr. Cassidy on 09-07-2022 Platelet mean volume (Bld) [Entitic vol] 11.3 fL 6.2-12.0 [facility] Determination of erythrocyte mean corpuscular volume (MCV)Ordered By: Dr. Cassidy on 09-07-2022 MCV (RBC) [Entitic vol] 94.2 fL 81-99 [facility] Hematocrit Auto (Bld) [Volum e fraction]Ordered By: Dr. Cassidy on 09-07-2022 Hematocrit (Bld) [Volume fraction] 42.3 % 37-47 [facility] Laboratory - Chemistry and C hemistry - challengeOrdered By: Dr. Cassidy on 09-07-2022 CO2 [Moles/Vol] 30.0 mmol/L 21.0-32.0 [facility] Comment on above: Slight Lipemia, Resu lt may be falsely increased. Urea nitrogen/Creatinine [Mass ratio] 13.6 mg/mg 10-20 [facility] Laboratory - Drug toxicology Ordered By: Dr. Cassidy on 09-07-2022 Amphetamines Ql (U) Negative <1000 ng/mL [facility] Benzodiazepines Ql (U) Negative < 200 ng/mL [facility] Cannabinoids Screen Ql (U) Negative < 50 ng/mL [facility] Cocaine Ql (U) Negative < 300 ng/mL [facility] Opiates Ql (U) Negative < 300 ng/mL [facility] Laboratory - Hematology and Cell countsOrdered By: Dr. Cassidy on 09-07-2022 Erythrocyte distribution width (RBC) [Entitic vol] 47.4 fL 35.1-43.9 [facility] Erythrocyte distribution width (RBC) [Ratio] 13.8 % 11.6-14.6 [facility] Immature granulocytes/100 WBC (Bld) 1.900 % 0.0-0.9 [facility] Comment on above: IG% - Immature Granu locytes (promyelocytes, myelocytes and metamyelocytes) > 1% indicates that a LEFT SHIFT is Present. MCH (RBC) [Entitic mass] 30.1 pg 27.0-32.0 [facility] Nucleated RBC/100 WBC (Bld) [[facility]] 0 [facility] [[facility]/Vol]Or dered By: Dr. Cassidy on 09-07-2022 MCHC (RBC) [Mass/Vol] 31.9 g/dL 32-36 [facility] No Panel InformationOrdered By: Dr. Cassidy on 09-07-2022 MDMA (Ecstasy) Screen Negative < 500 ng/mL [facility] Urine Barbiturates Screen Negative < 200 ng/mL [facility] Urine Drug Screen Comment [facility] Comment on above: CONFIRMATORY TESTING FOR ALL POSITIVE URINE DRUG SCREENRESULTS WILL ONLY BE SENT OUT UPON PHYSICIAN ORDER. VISTA Urine Drug Screen methods provide only preliminaryanalytical test results. A more specific alternate chemicalmethod must be used in order to obtain a confirmedanalytical result. Gas chromatography/mass spectrometery(GC/MS) is the preferred confirmatory method. Clinicalconsideration and professional judgement should be appliedto any drug of abuse test result, particularly whenpreliminary positive results are used. URINE TCA TESTING MUST BE ORDERED SEPARATELY. USE TESTMNEMONIC: [facility] Urine Methadone Screen Negative < 300 ng/mL [facility] Estimated Creatinine Clearance Calc 49.76 ml/min [facility] Estimated GFR (MDRD) Amer 70 mL/min >60 [facility] Comment on above: GFR Calc Estimated GFR (MDRD) Non-Af Amer 58 mL/min >60 [facility] Comment on above: Non- GFR Calc Ethyl Alcohol Level < 3.0 mg/dL [facility] Comment on above: The serum:whole bloo d ethanol ratio is approximately 1.14and varies slightly with hematocrit. Medical Alcohol reference interval and critical value innon-tolerant individuals; 50 - 100 Impairment 100 Intoxication 100 - 250 Severe Poisoning 250 - 400 Deep/possible fatal coma Platelets bldOrdered By: Dr. Cassidy on 09-07-2022 Platelets (Bld) [#/Vol] 287 10*3/uL 150-450 [facility] Serum or plasma calcium shelley urement (mass/volume)Ordered By: Dr. Cassidy on 09-07-2022 Calcium [Mass/Vol] 9.0 mg/dL 8.5-10.1 [facility] Comment on above: Slight Lipemia, Resu lt may be falsely increased. Serum or plasma creatinine m easurement (mass/volume)Ordered By: Dr. Cassidy on 09-07-2022 Creatinine [Mass/Vol] 1.10 mg/dL 0.55-1.02 [facility] Comment on above: Slight Lipemia, Resu lt may be falsely increased.The validity of the calculated GFR & GFRAA in patients over 70 years has not been determined. Clinical correlation is essential. Serum or plasma urea nitroge n measurement (mass/volume)Ordered By: Dr. Cassidy on 09-07-2022 Urea nitrogen [Mass/Vol] 15 mg/dL 7-18 [facility] Comment on above: Slight Lipemia, Resu lt may be falsely increased. Thin prep Papanicolaou smear with manual screeningOrdered By: Dr. Cassidy on 09-07-2022 Thin prep Papanicolaou smear with manual screening 4 5-15 [facility] Urine phencyclidine (PCP) de tectionOrdered By: Dr. Cassidy on 09-07-2022 Phencyclidine Ql (U) Negative < 25 ng/mL [facility] XR CHEST 2V FRONTAL/LATon [facility] XR Chest PA and Lateralon IMPRESSION: No acute radiographic abnormality. Physical Therapy Nurse: PSCB Transcribe Date/Time: May 12 2022 5:40P Dictated by : BAM MASON MD This examination was interpreted and the report reviewed and electronically signed by: BAM MASON MD on May 12 2022 5:41PM [facility] DIVISION OF RADIOLOGY * * *Final Report* * * DATE OF EXAM: May 12 2022 5:38PM WOX 5291 - XR CHEST 2V FRONTAL/LAT / PROCEDURE REASON: Acute cough * * * * Physician Interpretation * * * * EXAMINATION: CHEST RADIOGRAPH (2 VIEW FRONTAL & LATERAL), 05/12/2022 CLINICAL HISTORY: Acute cough MQ: XC2_6 EXAM DATE/TIME: 05/12/2022 5:38 PM COMPARISON: 07/29/2021. RESULT: Lines, tubes, and devices: None. Lungs and pleura: The lungs are clear. No pleural effusion. No pneumothorax. Cardiomediastinal silhouette: Stable top normal heart size. Hilar and mediastinal soft tissues within normal limits. Bones and soft tissues: Surgical clips right upper quadrant abdomen. DIVISION OF RADIOLOGY Provider, Ezra Gregg - 05/12/2022 * * *Final Report* * * DATE OF EXAM: May 12 2022 5:38PM [facility] 5291 - XR CHEST 2V FRONTAL/LAT / PROCEDURE REASON: Acute cough * * * * Physician Interpretation * * * * EXAMINATION: CHEST RADIOGRAPH (2 VIEW FRONTAL & LATERAL), 05/12/2022 CLINICAL HISTORY: Acute cough MQ: XC2_6 EXAM DATE/TIME: 05/12/2022 5:38 PM COMPARISON: 07/29/2021. RESULT: Lines, tubes, and devices: None. Lungs and pleura: The lungs are clear. No pleural effusion. No pneumothorax. Cardiomediastinal silhouette: Stable top normal heart size. Hilar and mediastinal soft tissues within normal limits. Bones and soft tissues: Surgical clips right upper quadrant abdomen. IMPRESSION IMPRESSION: No acute radiographic abnormality. Physical Therapy Nurse: PSCB Transcribe Date/Time: May 12 2022 5:40P Dictated by : BAM MASON MD This examination was interpreted and the report reviewed and electronically signed by: BAM MASON MD on May 12 2022 5:41PM EST [facility] Radiology Study observation (narrative) Melissa oliver [facility] XR Chest PA and LateralOrder ed By: [facility] Provider on 05-12-2022 [facility] Absolute lymphocyte counton 04-10-2022 Lymphocytes Auto (Unsp spec) [#/Vol] 3.03 10*3/uL 0.83-4.51 [facility] Work Phone: Amorphous sediment detection in urine sediment by light microscopyon 04-10-2022 Amorphous sediment LM Ql (Urine sed) 1+ [facility] Work Phone: Basophil percentageon 2021 Basophils/100 WBC (Bld) 0.7 % 0-1 [facility] Work Phone: Bilirubin [Mass/Vol] 0.40 mg/dL 0.20-1.00 [facility] Work Phone: Comment on above: For patients on eltr ombopag therapy, use of Dimension [place] TBIL is not recommended. Chloride [Moles/Vol] 105 mmol/L 98-107 [facility] Work Phone: Eosinophils/100 WBC (Bld) 3.2 % 0-5 [facility] Work Phone: Glucose [Mass/Vol] 105 mg/dL 74-106 [facility] Work Phone: Comment on above: Fasting Glucose resu lt from 100 to 125 mg/dL suggests IMPAIRED HOMEOSTASIS per A.D.A. criteria. Neutrophils (Bld) [#/Vol] 4.8 10*3/uL 2.0-7.7 [facility] Work Phone: Neutrophils/100 WBC (Bld) 53.8 % 47-70 [facility] Work Phone: Potassium [Moles/Vol] 5.0 mmol/L 3.5-5.1 [facility] Work Phone: Comment on above: Moderate Hemolysis, Result may be falsely increased. Protein [Mass/Vol] 7.9 g/dL 6.4-8.2 [facility] Work Phone: Sodium [Moles/Vol] 137 mmol/L 136-145 [facility] Work Phone: WBC (Bld) [#/Vol] 8.8 10*3/uL 4.4-11.0 [facility] Work Phone: Basophil percentage 0-5 SEEN /hpf 0-5 [facility] Work Phone: Bilirubin Test strip Ql (U)o n 04-10-2022 Bilirubin Ql (U) Negative Negative [facility] Work Phone: Blood erythrocytes count (nu mber/volume)on 04-10-2022 RBC (Bld) [#/Vol] 4.35 10*6/uL 4.2-5.4 [facility] Work Phone: Blood hemoglobin measurement (mass/volume)on 04-10-2022 Hemoglobin (Bld) [Mass/Vol] 12.6 g/dL 12.0-15.0 [facility] Work Phone: Blood lymphocytes/100 leukoc yteson 04-10-2022 Lymphocytes/100 WBC (Bld) 34.3 % 19-41 [facility] Work Phone: Blood monocytes/100 leukocyt eson 04-10-2022 Monocytes/100 WBC (Bld) 6.4 % 0-10 [facility] Work Phone: Blood platelet mean volumeon 04-10-2022 Platelet mean volume (Bld) [Entitic vol] 10.7 fL 6.2-12.0 [facility] Work Phone: Determination of erythrocyte mean corpuscular volume (MCV)on 04-10-2022 MCV (RBC) [Entitic vol] 89.4 fL 81-99 [facility] Work Phone: Direct bilirubinon 2 Bilirubin.direct [Mass/Vol] 0.06 mg/dL 0.00-0.30 [facility] Work Phone: Hematocrit Auto (Bld) [Volum e fraction]on 04-10-2022 Hematocrit (Bld) [Volume fraction] 38.9 % 37-47 [facility] Work Phone: Ketones Test strip Ql (U)on 04-10-2022 Ketones Ql (U) Negative Negative [facility] Work Phone: Laboratory - Chemistry and C hemistry - challengeon 04-10-2022 ALP [Catalytic activity/Vol] 129 U/L 45-117 [facility] Work Phone: ALT [Catalytic activity/Vol] 33 U/L 13-56 [facility] Work Phone: CO2 [Moles/Vol] 27.0 mmol/L 21.0-32.0 [facility] Work Phone: Globulin (S) [Mass/Vol] 4.2 g/dL 2.2-4.2 [facility] Work Phone: Lipase [Catalytic activity/Vol] 191 U/L 73-393 [facility] Work Phone: Urea nitrogen/Creatinine [Mass ratio] 13.6 mg/mg 10-20 [facility] Work Phone: Laboratory - Hematology and Cell countson 04-10-2022 Erythrocyte distribution width (RBC) [Entitic vol] 48.2 fL 35.1-43.9 [facility] Work Phone: Erythrocyte distribution width (RBC) [Ratio] 14.8 % 11.6-14.6 [facility] Work Phone: Immature granulocytes/100 WBC (Bld) 1.600 % 0.0-0.9 [facility] Work Phone: Comment on above: IG% - Immature Granu locytes (promyelocytes, myelocytes and metamyelocytes) > 1% indicates that a LEFT SHIFT is Present. MCH (RBC) [Entitic mass] 29.0 pg 27.0-32.0 [facility] Work Phone: Nucleated RBC/100 WBC (Bld) [Ratio] 0 % 0-5 [facility] Work Phone: MCHC Auto (RBC) [Mass/Vol]on 04-10-2022 MCHC (RBC) [Mass/Vol] 32.4 g/dL 32-36 [facility] Work Phone: Mucus LM Ql (Urine sed)on Mucus Ql (Urine sed) 1+ /hpf [facility] Work Phone: Nitrite Test strip Ql (U)on 04-10-2022 Nitrite Ql (U) Negative Negative [facility] Work Phone: No Panel Informationon 04-10 Estimated Creatinine Clearance Calc 68.27 ml/min [facility] Work Phone: Estimated GFR (MDRD) Amer 100 mL/min >60 [facility] Work Phone: Comment on above: GFR Calc Estimated GFR (MDRD) Non-Af Amer 82 mL/min >60 [facility] Work Phone: Comment on above: Non- GFR Calc Platelets bldon 04-10-2022 Platelets (Bld) [#/Vol] 242 10*3/uL 150-450 [facility] Work Phone: Protein Test strip Ql (U)on 04-10-2022 Protein Ql (U) Negative Negative [facility] Work Phone: Serum or plasma albumin shelley urement (mass/volume)on 04-10-2022 Albumin [Mass/Vol] 3.7 g/dL 3.2-5.0 [facility] Work Phone: Serum or plasma calcium shelley urement (mass/volume)on 04-10-2022 Calcium [Mass/Vol] 9.1 mg/dL 8.5-10.1 [facility] Work Phone: Serum or plasma creatinine m easurement (mass/volume)on 04-10-2022 Creatinine [Mass/Vol] 0.81 mg/dL 0.55-1.02 [facility] Work Phone: Comment on above: The validity of the calculated GFR & GFRAA in patients over 70 years has not been determined. Clinical correlation is essential. Serum or plasma urea nitroge n measurement (mass/volume)on 04-10-2022 Urea nitrogen [Mass/Vol] 11 mg/dL 7-18 [facility] Work Phone: Squamous epithelial cells de tection in urine sediment by light microscopyon 04-10-2022 Epithelial cells.squamous LM Ql (Urine sed) 0-5 SEEN /hpf 5-10 [facility] Work Phone: Thin prep Papanicolaou smear with manual screeningon 04-10-2022 Thin prep Papanicolaou smear with manual screening 29 U/L 15-37 [facility] Work Phone: Comment on above: Moderate Hemolysis, Result may be falsely increased. Thin prep Papanicolaou smear with manual screening 5 5-15 [facility] Work Phone: Urine blood detectionon 03-15 RBC Ql (U) Negative Negative [facility] Work Phone: RBC Ql (U) 0 SEEN /hpf 0-5 [facility] Work Phone: Urine clarityon 04-10-2022 Clarity (U) Cloudy Clear [facility] Work Phone: Urine color determinationon 04-10-2022 Color (U) Yellow Yellow [facility] Work Phone: Urine glucose detectionon Glucose Ql (U) Normal mg/dl Normal [facility] Work Phone: Urine leukocyte esterase det ection by dipstickon 04-10-2022 Leukocyte esterase Test strip Ql (U) 25 /ul Negative [facility] Work Phone: Urine pHon 04-10-2022 pH (U) 8.0 [pH] 5.0 - 8.0 [facility] Work Phone: Urine sediment bacteria coun t by microscopy (number/high power field)on 04-10-2022 Bacteria LM.HPF (Urine sed) [#/Area] 1 /[HPF] None Seen [facility] Work Phone: Urine specific gravity measu rementon 04-10-2022 Specific gravity (U) [Rel density] 1.010 1.002-1.030 [facility] Work Phone: Urobilinogen Auto test strip Ql (U)on 04-10-2022 Urobilinogen Ql (U) Normal mg/dl Normal [facility] Work Phone: LABORATORYOrdered By: Ilda Al on 02-06-2022 Albumin BCP dye [Mass/Vol] 4.3 G/dL Invalid Interpretation Code 3.5 - 5.0 G/dL AO ADM SS Albumin/Globulin [Mass ratio] 1.1 {ratio} Invalid Interpretation Code 1.1 - 2.5 ratio AO ADM SS ALP [Catalytic activity/Vol] 142 U/L Invalid Interpretation Code 40 - 135 U/L AO ADM SS ALT With P-5'-P [Catalytic activity/Vol] 24 U/L Invalid Interpretation Code 14 - 59 U/L AO ADM SS AST With P-5'-P [Catalytic activity/Vol] 20 U/L Invalid Interpretation Code 10 - 40 U/L AO ADM SS Bilirubin [Mass/Vol] 0.4 mg/dL Invalid Interpretation Code 0.2 - 1.0 mg/dL AO ADM SS Calcium [Mass/Vol] 9.4 mg/dL Invalid Interpretation Code 8.4 - 10.2 mg/dL AO ADM SS Chloride [Moles/Vol] 99 mmol/L Invalid Interpretation Code 98 - 107 mmol/L AO ADM SS CO2 [Moles/Vol] 29 mmol/L Invalid Interpretation Code 22 - 29 mmol/L AO ADM SS Creatinine [Mass/Vol] 1.23 mg/dL Invalid Interpretation Code 0.55 - 1.02 mg/dL AO ADM SS Electrolyte Balance 9.0 mEq/L Invalid Interpretation Code 4.0 - 15.0 mEq/L AO ADM SS Globulin 4.0 G/dL Invalid Interpretation Code AO ADM SS Glucose [Mass/Vol] 102 mg/dL Invalid Interpretation Code 70 - 105 mg/dL AO ADM SS Lipase [Catalytic activity/Vol] 68 U/L Invalid Interpretation Code 73 - 393 U/L AO ADM SS Potassium [Moles/Vol] 4.0 mmol/L Invalid Interpretation Code 3.5 - 5.1 mmol/L AO ADM SS Protein [Mass/Vol] 8.3 G/dL Invalid Interpretation Code 6.4 - 8.2 G/dL AO ADM SS Sodium [Moles/Vol] 137 mmol/L Invalid Interpretation Code 136 - 145 mmol/L AO ADM SS Urea nitrogen [Mass/Vol] 14 mg/dL Invalid Interpretation Code 7 - 18 mg/dL AO ADM SS Urea nitrogen/Creatinine [Mass ratio] 11 ratio Invalid Interpretation Code 7 - 27 ratio AO ADM SS LABORATORYOrdered By: Carlos Jack on 02-06-2022 Appearance (U) Clear (02/06/22 8:42 PM) Invalid Interpretation Code Clear AO Auto Urine SS Basophil, Absolute 0.1 103/mcL Invalid Interpretation Code 0.0 - 0.2 10^3/mcL AO Workflow SS Basophils/100 WBC (Bld) 1.4 % Invalid Interpretation Code 0.0 - 2.5 % AO Workflow SS Bilirubin Ql (U) Negative (02/06/22 8:42 PM) Invalid Interpretation Code Negative AO Auto Urine SS Color (U) Yellow (02/06/22 8:42 PM) Invalid Interpretation Code AO Auto Urine SS Eosinophil, Absolute 0.2 103/mcL Invalid Interpretation Code 0.0 - 0.4 10^3/mcL AO Workflow SS Eosinophils/100 WBC (Bld) 2.5 % Invalid Interpretation Code 0.0 - 7.0 % AO Workflow SS Erythrocyte distribution width (RBC) [Ratio] 13.3 % Invalid Interpretation Code 11.5 - 14.5 % AO Workflow SS Glucose Test strip (U) [Mass/Vol] Negative Invalid Interpretation Code Negativemg/d L AO Auto Urine SS HCG ( test) Ql Negative (02/06/22 8:42 PM) Invalid Interpretation Code AO Manual Urine SS Hematocrit (Bld) [Volume fraction] 38.6 % Invalid Interpretation Code 37.0 - 47.0 % AO Workflow SS Hemoglobin Auto test strip (U) [Mass/Vol] Trace *ABN* (02/06/22 8:42 PM) Invalid Interpretation Code Negative AO Auto Urine SS Hgb 13.0 G/dL Invalid Interpretation Code 12.0 - 16.0 G/dL AO Workflow SS Ketones Ql (U) Negative Invalid Interpretation Code Negativemg/d L AO Auto Urine SS Lymphocyte, Absolute 3.3 103/mcL Invalid Interpretation Code 0.8 - 3.9 10^3/mcL AO Workflow SS Lymphocytes/100 WBC (Bld) 33.9 % Invalid Interpretation Code 10.0 - 50.0 % AO Workflow SS MCH (RBC) [Entitic mass] 28.8 pg Invalid Interpretation Code 27.0 - 31.2 pg AO Workflow SS MCHC 33.5 G/dL Invalid Interpretation Code 33.0 - 37.0 G/dL AO Workflow SS MCV (RBC) [Entitic vol] 85.8 fL Invalid Interpretation Code 80.0 - 94.0 fL AO Workflow SS Monocyte distribution width Auto (Bld) [Entitic vol] 21.36 Invalid Interpretation Code 0.00 - 20.00 AO Workflow SS Comment on above: Result Comment: For adults in ED, MDW>20.0 may be associated with a higher risk of sepsis during the first 12hrs of hospital admission Monocyte, Absolute 0.5 103/mcL Invalid Interpretation Code 0.2 - 1.0 10^3/mcL AO Workflow SS Monocytes/100 WBC (Bld) 5.3 % Invalid Interpretation Code 1.7 - 13.0 % AO Workflow SS Neutrophil, Absolute 5.5 103/mcL Invalid Interpretation Code 2.9 - 6.2 10^3/mcL AO Workflow SS Neutrophils/100 WBC (Bld) 56.9 % Invalid Interpretation Code 37.0 - 80.0 % AO Workflow SS Platelet 255 103/mcL Invalid Interpretation Code 130 - 400 10^3/mcL AO Workflow SS Platelet mean volume (Bld) [Entitic vol] 8.5 fL Invalid Interpretation Code 7.4 - 10.4 fL AO Workflow SS test (u) int Not detected Invalid Interpretation Code AO Manual Urine SS RBC 4.50 106/mcL Invalid Interpretation Code 4.20 - 5.40 10^6/mcL AO Workflow SS UA Leuk Est Negative (02/06/22 8:42 PM) Invalid Interpretation Code Negative AO Auto Urine SS UA Nitrite Negative (02/06/22 8:42 PM) Invalid Interpretation Code Negative AO Auto Urine SS UA pH 6.5 (02/06/22 8:42 PM) Invalid Interpretation Code 5.0 - 8.0 AO Auto Urine SS UA Protein Negative Invalid Interpretation Code Negativemg/d L AO Auto Urine SS UA Spec Grav 1.010 *ABN* (02/06/22 8:42 PM) Invalid Interpretation Code 1.015-1.025 AO Auto Urine SS UA Specimen Type Clean Catch (02/06/22 8:42 PM) Invalid Interpretation Code AO Auto Urine SS UA Urobilinogen 0.2 E.U./dL Invalid Interpretation Code 0.2-1.0E.U./ dL AO Auto Urine SS WBC 9.6 103/mcL Invalid Interpretation Code 4.6 - 10.8 10^3/mcL AO Workflow SS LABORATORYOrdered By: SYSTEM SYSTEM on 02-06-2022 GFR 58 ml/min/1.73sqm Invalid Interpretation Code AO Chemistry S GFR Non- 48 ml/min/1.73sqm Invalid Interpretation Code AO Chemistry S Absolute lymphocyte counton 10-04-2021 Lymphocytes Auto (Unsp spec) [#/Vol] 3.26 10*3/uL 0.83-4.51 [facility] Work Phone: Basophil percentageon 2021 Basophils/100 WBC (Bld) 0.9 % 0-1 [facility] Work Phone: Bilirubin [Mass/Vol] 0.30 mg/dL 0.20-1.00 [facility] Work Phone: Comment on above: For patients on eltr ombopag therapy, use of Dimension [place] TBIL is not recommended. Chloride [Moles/Vol] 103 mmol/L 98-107 [facility] Work Phone: Eosinophils/100 WBC (Bld) 1.2 % 0-5 [facility] Work Phone: Glucose [Mass/Vol] 102 mg/dL 74-106 [facility] Work Phone: Comment on above: Fasting Glucose resu lt from 100 to 125 mg/dL suggests IMPAIRED HOMEOSTASIS per A.D.A. criteria. Neutrophils (Bld) [#/Vol] 3.9 10*3/uL 2.0-7.7 [facility] Work Phone: Neutrophils/100 WBC (Bld) 47.7 % 47-70 [facility] Work Phone: Potassium [Moles/Vol] 3.7 mmol/L 3.5-5.1 [facility] Work Phone: Protein [Mass/Vol] 8.9 g/dL 6.4-8.2 [facility] Work Phone: Sodium [Moles/Vol] 138 mmol/L 136-145 [facility] Work Phone: WBC (Bld) [#/Vol] 8.1 10*3/uL 4.4-11.0 [facility] Work Phone: Blood erythrocytes count (nu mber/volume)on 10-04-2021 RBC (Bld) [#/Vol] 4.52 10*6/uL 4.2-5.4 [facility] Work Phone: Blood hemoglobin measurement (mass/volume)on 10-04-2021 Hemoglobin (Bld) [Mass/Vol] 13.6 g/dL 12.0-15.0 [facility] Work Phone: Blood lymphocytes/100 leukoc yteson 10-04-2021 Lymphocytes/100 WBC (Bld) 40.3 % 19-41 [facility] Work Phone: Blood monocytes/100 leukocyt eson 10-04-2021 Monocytes/100 WBC (Bld) 7.4 % 0-10 [facility] Work Phone: Blood platelet mean volumeon 10-04-2021 Platelet mean volume (Bld) [Entitic vol] 10.5 fL 6.2-12.0 [facility] Work Phone: Determination of erythrocyte mean corpuscular volume (MCV)on 10-04-2021 MCV (RBC) [Entitic vol] 90.7 fL 81-99 [facility] Work Phone: Hematocrit Auto (Bld) [Volum e fraction]on 10-04-2021 Hematocrit (Bld) [Volume fraction] 41.0 % 37-47 [facility] Work Phone: Laboratory - Chemistry and C hemistry - challengeon 10-04-2021 ALP [Catalytic activity/Vol] 156 U/L 45-117 [facility] Work Phone: ALT [Catalytic activity/Vol] 32 U/L 13-56 [facility] Work Phone: CO2 [Moles/Vol] 29.0 mmol/L 21.0-32.0 [facility] Work Phone: Globulin (S) [Mass/Vol] 4.5 g/dL 2.2-4.2 [facility] Work Phone: Urea nitrogen/Creatinine [Mass ratio] 9.9 mg/mg 10-20 [facility] Work Phone: Laboratory - Hematology and Cell countson 10-04-2021 Erythrocyte distribution width (RBC) [Entitic vol] 42.6 fL 35.1-43.9 [facility] Work Phone: Erythrocyte distribution width (RBC) [Ratio] 12.8 % 11.6-14.6 [facility] Work Phone: Immature granulocytes/100 WBC (Bld) 2.500 % 0.0-0.9 [facility] Work Phone: Comment on above: IG% - Immature Granu locytes (promyelocytes, myelocytes and metamyelocytes) > 1% indicates that a LEFT SHIFT is Present. MCH (RBC) [Entitic mass] 30.1 pg 27.0-32.0 [facility] Work Phone: Nucleated RBC/100 WBC (Bld) [Ratio] 0 % 0-5 [facility] Work Phone: MCHC Auto (RBC) [Mass/Vol]on 10-04-2021 MCHC (RBC) [Mass/Vol] 33.2 g/dL 32-36 [facility] Work Phone: No Panel Informationon 10-04 Estimated Creatinine Clearance Calc 45.70 ml/min [facility] Work Phone: Estimated GFR (MDRD) Amer 63 mL/min >60 [facility] Work Phone: Comment on above: GFR Calc Estimated GFR (MDRD) Non-Af Amer 52 mL/min >60 [facility] Work Phone: Comment on above: Non- GFR Calc SARS-CoV-2 Antigen (Rapid) SARS-CoV-2 (COVID 19) [facility] Work Phone: Platelets bldon 10-04-2021 Platelets (Bld) [#/Vol] 258 10*3/uL 150-450 [facility] Work Phone: Serum or plasma albumin shelley urement (mass/volume)on 10-04-2021 Albumin [Mass/Vol] 4.4 g/dL 3.2-5.0 [facility] Work Phone: Serum or plasma albumin/glob ulin mass ratioon 10-04-2021 Albumin/Globulin [Mass ratio] 1.0 {ratio} 0.9-2.4 [facility] Work Phone: Serum or plasma calcium shelley urement (mass/volume)on 10-04-2021 Calcium [Mass/Vol] 9.9 mg/dL 8.5-10.1 [facility] Work Phone: Serum or plasma creatinine m easurement (mass/volume)on 10-04-2021 Creatinine [Mass/Vol] 1.21 mg/dL 0.55-1.02 [facility] Work Phone: Comment on above: The validity of the calculated GFR & GFRAA in patients over 70 years has not been determined. Clinical correlation is essential. Serum or plasma urea nitroge n measurement (mass/volume)on 10-04-2021 Urea nitrogen [Mass/Vol] 12 mg/dL 7-18 [facility] Work Phone: Thin prep Papanicolaou smear with manual screeningon 10-04-2021 Thin prep Papanicolaou smear with manual screening 19 U/L 15-37 [facility] Work Phone: Thin prep Papanicolaou smear with manual screening 6 5-15 [facility] Work Phone: LABORATORYOrdered By: Willie Pratt on 09-13-2021 Albumin BCP dye [Mass/Vol] 4.1 G/dL Invalid Interpretation Code 3.5 - 5.0 G/dL AO ADM SS Albumin/Globulin [Mass ratio] 1.1 {ratio} Invalid Interpretation Code 1.1 - 2.5 ratio AO ADM SS ALP [Catalytic activity/Vol] 148 U/L Invalid Interpretation Code 40 - 135 U/L AO ADM SS ALT With P-5'-P [Catalytic activity/Vol] 23 U/L Invalid Interpretation Code 14 - 59 U/L AO ADM SS AST With P-5'-P [Catalytic activity/Vol] 14 U/L Invalid Interpretation Code 10 - 40 U/L AO ADM SS Basophil, Absolute 0.10 103/mcL Invalid Interpretation Code 0.00 - 0.19 10^3/mcL AO Auto Heme SS Basophils/100 WBC (Bld) 0.9 % Invalid Interpretation Code 0.0 - 2.5 % AO Auto Heme SS Bilirubin [Mass/Vol] 0.4 mg/dL Invalid Interpretation Code 0.2 - 1.0 mg/dL AO ADM SS Calcium [Mass/Vol] 9.2 mg/dL Invalid Interpretation Code 8.4 - 10.2 mg/dL AO ADM SS Chloride [Moles/Vol] 100 mmol/L Invalid Interpretation Code 98 - 107 mmol/L AO ADM SS CO2 [Moles/Vol] 27 mmol/L Invalid Interpretation Code 22 - 29 mmol/L AO ADM SS Creatinine [Mass/Vol] 1.00 mg/dL Invalid Interpretation Code 0.55 - 1.02 mg/dL AO ADM SS Electrolyte Balance 10.0 mEq/L Invalid Interpretation Code AO ADM SS Eosinophil, Absolute 0.20 103/mcL Invalid Interpretation Code 0.00 - 0.40 10^3/mcL AO Auto Heme SS Eosinophils/100 WBC (Bld) 1.8 % Invalid Interpretation Code 0.0 - 7.0 % AO Auto Heme SS Erythrocyte distribution width (RBC) [Ratio] 13.3 % Invalid Interpretation Code 11.5 - 14.5 % AO Auto Heme SS Globulin 3.8 G/dL Invalid Interpretation Code AO ADM SS Glucose [Mass/Vol] 100 mg/dL Invalid Interpretation Code 70 - 105 mg/dL AO ADM SS Hematocrit (Bld) [Volume fraction] 35.1 % Invalid Interpretation Code 37.0 - 47.0 % AO Auto Heme SS Hemoglobin (Bld) [Mass/Vol] 11.6 G/dL Invalid Interpretation Code 12.0 - 16.0 G/dL AO Auto Heme SS Lipase [Catalytic activity/Vol] 70 U/L Invalid Interpretation Code 73 - 393 U/L AO ADM SS Lymphocyte, Absolute 2.90 103/mcL Invalid Interpretation Code 0.77 - 3.85 10^3/mcL AO Auto Heme SS Lymphocytes/100 WBC (Bld) 26.0 % Invalid Interpretation Code 10.0 - 50.0 % AO Auto Heme SS MCH (RBC) [Entitic mass] 30.1 pg Invalid Interpretation Code 27.0 - 31.2 pg AO Auto Heme SS MCHC (RBC) [Mass/Vol] 33.1 G/dL Invalid Interpretation Code 33.0 - 37.0 G/dL AO Auto Heme SS MCV (RBC) [Entitic vol] 90.9 fL Invalid Interpretation Code 80.0 - 94.0 fL AO Auto Heme SS Monocyte, Absolute 0.60 103/mcL Invalid Interpretation Code 0.15 - 1.00 10^3/mcL AO Auto Heme SS Monocytes/100 WBC (Bld) 5.7 % Invalid Interpretation Code 1.7 - 13.0 % AO Auto Heme SS Neutrophil, Absolute 7.30 103/mcL Invalid Interpretation Code 2.85 - 6.16 10^3/mcL AO Auto Heme SS Neutrophils/100 WBC (Bld) 65.6 % Invalid Interpretation Code 37.0 - 80.0 % AO Auto Heme SS Platelet mean volume (Bld) [Entitic vol] 8.9 fL Invalid Interpretation Code 7.4 - 10.4 fL AO Auto Heme SS Platelets (Bld) [#/Vol] 248 103/mcL Invalid Interpretation Code 130 - 400 10^3/mcL AO Auto Heme SS Potassium [Moles/Vol] 4.1 mmol/L Invalid Interpretation Code 3.5 - 5.1 mmol/L AO ADM SS Protein [Mass/Vol] 7.9 G/dL Invalid Interpretation Code 6.4 - 8.2 G/dL AO ADM SS RBC (Bld) [#/Vol] 3.87 106/mcL Invalid Interpretation Code 4.20 - 5.40 10^6/mcL AO Auto Heme SS Sodium [Moles/Vol] 137 mmol/L Invalid Interpretation Code 136 - 145 mmol/L AO ADM SS Urea nitrogen [Mass/Vol] 20 mg/dL Invalid Interpretation Code 7 - 18 mg/dL AO ADM SS Urea nitrogen/Creatinine [Mass ratio] 20 ratio Invalid Interpretation Code 7 - 27 ratio AO ADM SS WBC (Bld) [#/Vol] 11.20 103/mcL Invalid Interpretation Code 4.60 - 10.80 10^3/mcL AO Auto Heme SS LABORATORYOrdered By: Helen Jones on 09-13-2021 Appearance (U) Clear (09/13/21 1:26 PM) Invalid Interpretation Code Clear AO Auto Urine SS Bilirubin Ql (U) Negative (09/13/21 1:26 PM) Invalid Interpretation Code Negative AO Auto Urine SS Color (U) Yellow (09/13/21 1:26 PM) Invalid Interpretation Code AO Auto Urine SS Glucose Test strip (U) [Mass/Vol] Negative Invalid Interpretation Code Negativemg/d L AO Auto Urine SS Hemoglobin Auto test strip (U) [Mass/Vol] Negative (09/13/21 1:26 PM) Invalid Interpretation Code Negative AO Auto Urine SS Ketones Ql (U) Negative Invalid Interpretation Code Negativemg/d L AO Auto Urine SS UA Leuk Est Negative (09/13/21 1:26 PM) Invalid Interpretation Code Negative AO Auto Urine SS UA Nitrite Negative (09/13/21 1:26 PM) Invalid Interpretation Code Negative AO Auto Urine SS UA pH 5.5 (09/13/21 1:26 PM) Invalid Interpretation Code 5.0 - 8.0 AO Auto Urine SS UA Protein Negative Invalid Interpretation Code Negativemg/d L AO Auto Urine SS UA Spec Grav >=1.030 *ABN* (09/13/21 1:26 PM) Invalid Interpretation Code 1.015-1.025 AO Auto Urine SS UA Specimen Type Clean Catch (09/13/21 1:26 PM) Invalid Interpretation Code AO Auto Urine SS UA Urobilinogen 0.2 E.U./dL Invalid Interpretation Code 0.2-1.0E.U./ dL AO Auto Urine SS LABORATORYOrdered By: SYSTEM SYSTEM on 09-13-2021 GFR 74 ml/min/1.73sqm Invalid Interpretation Code AO Chemistry S GFR Non- 61 ml/min/1.73sqm Invalid Interpretation Code AO Chemistry S XR Chest PA and Lateralon IMPRESSION: No acute radiographic abnormality. Physical Therapy Nurse: HERMINIO Transcribe Date/Time: Jul 29 2021 9:28A Dictated by : TRISTEN PIMENTEL MD This examination was interpreted and the report reviewed and electronically signed by: TRISTEN PIMENTEL MD on Jul 29 2021 9:28AM [facility] DIVISION OF RADIOLOGY * * *Final Report* * * DATE OF EXAM: Jul 29 2021 9:26AM WOX [id number] - XR CHEST 2V FRONTAL/LAT / PROCEDURE REASON: LRTI (lower respiratory tract infection) * * * * Physician Interpretation * * * * EXAMINATION: CHEST RADIOGRAPH (2 VIEW FRONTAL & LATERAL) CLINICAL HISTORY: LRTI (lower respiratory tract infection) MQ: XC2_6 EXAM DATE/TIME: 07/29/2021 9:26 AM COMPARISON: December 22, 2019 RESULT: Lines, tubes, and devices: None. Lungs and pleura: No consolidation. No lung mass. No pleural effusion. No pneumothorax. Cardiomediastinal silhouette: Normal cardiomediastinal silhouette. Bones and soft tissues: Surgical clips are present in the upper abdomen. DIVISION OF RADIOLOGY Provider, [facility] - 07/29/2021 * * *Final Report* * * DATE OF EXAM: Jul 29 2021 9:26AM WOX [id number] - XR CHEST 2V FRONTAL/LAT / PROCEDURE REASON: LRTI (lower respiratory tract infection) * * * * Physician Interpretation * * * * EXAMINATION: CHEST RADIOGRAPH (2 VIEW FRONTAL & LATERAL) CLINICAL HISTORY: LRTI (lower respiratory tract infection) MQ: XC2_6 EXAM DATE/TIME: 07/29/2021 9:26 AM COMPARISON: December 22, 2019 RESULT: Lines, tubes, and devices: None. Lungs and pleura: No consolidation. No lung mass. No pleural effusion. No pneumothorax. Cardiomediastinal silhouette: Normal cardiomediastinal silhouette. Bones and soft tissues: Surgical clips are present in the upper abdomen. IMPRESSION IMPRESSION: No acute radiographic abnormality. Physical Therapy Nurse: HERMINIO Transcribe Date/Time: Jul 29 2021 9:28A Dictated by : TRISTEN PIMENTEL MD This examination was interpreted and the report reviewed and electronically signed by: TRISTEN PIMENTEL MD on Jul 29 2021 9:28AM EST [facility] Radiology Study observation (narrative) [facility] Chest PA and LateralOrder ed By: [facility] Provider on 07-29-2021 [facility] EMERGENCY DEPARTMENTon 12-01 [place] [address] HEALTH INFORMATION MANAGEMENT EMERGENCY DEPARTMENT : [address] [place] [address] Signed Patient: SALLY VARGAS Acct:[id number] M RUN: [id number] : 1980 Sex: F Loc: ED ADM Date: Room/Bed: DISC Date: 11/03/20 ____ ED Dental HPI - General Chief Complaint: Dental Stated Complaint: RIGHT LOWER TOOTH PAIN Symptom onset: X3 WEEKS HPI: PT C/O RIGHT SIDED DENTAL PAIN. Time Seen by Provider: 11/03/20 18:38 Source: Patient Mode of Transport: Ambulatory - History of Present Illness Initial Comments: 40-year-old female presented to ER with complaints of right lower molar tooth pain. She was seen by dentist and was prescribed oxacillin. She states the pain is worsening, she is been noticing a lot of gum swelling. She also has been on sucralfate and due to pain and GI upset she was not able to take amoxicillin. Patient denies any fever or chills. Location: right -: days(s) (Since last few days) Quality: sharp Consistency: constant Context: has dental appt scheduled (Patient states that she is going to follow-up with [facility] denies: Hx DM, previous caries, Hx of immunosupression Modifying factors: improves with: heat, cold Treatment [employer]: prescription meds - Related Data Home Medications: Home Medications Medication Instructions Recorded Confirmed Gabapentin [Neurontin 400 mg 400 mg PO DAILY 11/03/20 11/03/20 Capsule] Omeprazole Magnesium [Prilosec Otc] 20 mg PO DAILY 11/03/20 11/03/20 Prazosin HCl [Minipress 1 mg 1 mg PO DAILY 11/03/20 11/03/20 Capsule] Sertraline HCl [Zoloft 50 mg 25 mg PO DAILY 11/03/20 11/03/20 Tablet] Sucralfate [Carafate] 1 gm PO DAILY 11/03/20 11/03/20 Allergies/Adverse Reactions: Allergies Allergy/AdvReac Type Severity Reaction Status Date / Time aspirin Allergy Mild Verified 11/03/20 18:14 ketorolac [From Toradol] Allergy Mild Verified 11/03/20 18:14 metronidazole [From Flagyl] Allergy Mild Verified 11/03/20 18:14 Penicillins Allergy Mild Verified 11/03/20 18:14 IV CONTRAST DYE Allergy Mild Uncoded 11/03/20 18:14 Review of System - All Others/Exceptions All Other Systems: Reviewed and Negative Except Where Noted in Documentation ED PMH/Social HX/Family HX - Respiratory Hx Respiratory Disorders: No - Cardiovascular Hx Cardiac Disorders: No - Neurological Hx Neurological Disorder: Yes PMH--Neurological: Migraines - Endocrine Hx Endocrine Disorders: No - Gastrointestinal Hx Gastrointestinal Disorders: Yes PMH--Gastrointestinal: Esophageal Disorders, Ulcers Past Surgical Hx--GI: Lap. Cholecystectomy - Genitourinary Hx Genitourinary Disorders: Yes PMH--Genitourinary: Kidney Stones - Musculoskeletal Hx Musculoskeletal Disorders: No - Reproductive ?: No Hx Reproductive Disorders: No PSH-Female Reproductive: Hysterectomy - Psychological Hx Psychosocial Problems: Yes PMH--Psychological Treatments: Anxiety, Depression - HEENT Hx Ear, Nose Throat Disorders: No - Cancer Hx Cancer: No - Social History Able to Read: Yes Able to Write: Yes Smoking Status: Heavy Smoker (>10 cig/day) Hx Chewing Tobacco Use: No Alcohol Use: Never Any recreational drug use reported?: No Feels Threatened In Home Environment: No Feels Threatened In a Relationship: No - [place]/Gender ID What is your current Gender Identity? Choose all that Apply: Female - Cavalier-Suicide Severity Rating Scale 1) Wish to be :: No 2) Suicidal Thoughts:: No General Exam - General Constitutional: Present: Well developed, Well nourished, well hydrated, Non-toxic - Head Head exam: Present: atraumatic, normocephalic, normal inspection - Eye Eye exam: Present: normal apperance, normal accomodation, EOMI Pupils: Present: PERRL - ENT ENT exam: Present: other (Examination of the mouth, gum swelling noted the right lower jaw as well as tenderness to palpation over the molar tooth. No fluctuance or discharge noted.) - Neck Neck exam: Present: full ROM, Supple. Absent: tenderness, meningismus, Posterior Lymphadenopathy, Anterior Lymphadenopathy - Respiratory Respiratory exam: Present: lungs clear and equal bilaterally. Absent: respiratory distress, wheezes, rales, rhonchi, accessory muscle use - Cardiovascular Cardiovascular Exam: Present: regular rate, normal rhythm, normal heart sounds. Absent: murmur, rubs, gallop, clicks - GI/Abdominal GI/Abdominal exam: Present: soft, non tender, normal bowel sounds. Absent: guarding, rebound, rigid, mass, bruit - Extremities Exam Extremities exam: Present: normal inspection, full ROM, neurovascularly intact - Back Exam Back exam: Present: normal inspection, full ROM. A (more content not included)... Normal [facility] No Panel Informationon 11-19 Radiology Study observation (narrative) Melissa Richardson XR Femur - right AP and Late ralon 11-19-2020 IMPRESSION: NO ACUTE BONY ABNORMALITY NORMAL-APPEARING RIGHT HIP MILD DEGENERATIVE CHANGE OF THE RIGHT KNEE Physical Therapy Nurse: HERMINIO Transcribe Date/Time: Nov 19 2020 4:01P Dictated by : GARRETT WEBSTER MD This examination was interpreted and the report reviewed and electronically signed by: GARRETT WEBSTER MD on Nov 19 2020 4:02PM EST DIVISION OF RADIOLOGY * * *Final Report* * * DATE OF EXAM: Nov 19 2020 3:58PM WOX 5333 - XR FEMUR 2V AP/LAT RT / PROCEDURE REASON: multiple diagnoses * * * * Physician Interpretation * * * * HISTORY: Elevated alkaline phosphatase level Bone pain Right leg pain TECHNIQUE: Right femur, 4 views COMPARISON: None. RESULT: There is no acute fracture. Normal right hip joint space. There is mild degenerative change of the right knee. DIVISION OF RADIOLOGY Provider, [facility] - 11/19/2020 * * *Final Report* * * DATE OF EXAM: Nov 19 2020 3:58PM WOX 5333 - XR FEMUR 2V AP/LAT RT / PROCEDURE REASON: multiple diagnoses * * * * Physician Interpretation * * * * HISTORY: Elevated alkaline phosphatase level Bone pain Right leg pain TECHNIQUE: Right femur, 4 views COMPARISON: None. RESULT: There is no acute fracture. Normal right hip joint space. There is mild degenerative change of the right knee. IMPRESSION IMPRESSION: NO ACUTE BONY ABNORMALITY NORMAL-APPEARING RIGHT HIP MILD DEGENERATIVE CHANGE OF THE RIGHT KNEE Physical Therapy Nurse: [facility] Transcribe Date/Time: Nov 19 2020 4:01P Dictated by : GARRETT WEBSTER MD This examination was interpreted and the report reviewed and electronically signed by: GARRETT WEBSTER MD on Nov 19 2020 4:02PM EST [facility] XR Knee - right 4 Viewson IMPRESSION: MILD DEGENERATIVE CHANGE OF BOTH KNEES Physical Therapy Nurse: PSCB Transcribe Date/Time: Nov 19 2020 3:59P Dictated by : GARRETT WEBSTER MD This examination was interpreted and the report reviewed and electronically signed by: GARRETT WEBSTER MD on Nov 19 2020 4:00PM EST DIVISION OF RADIOLOGY * * *Final Report* * * DATE OF EXAM: Nov 19 2020 3:58PM WOX 5203 - XR KNEE 4V AP/PA BOTH+LAT/JAVI RT / PROCEDURE REASON: Acute pain of right knee * * * * Physician Interpretation * * * * HISTORY: Acute pain of right knee TECHNIQUE: 4 views of the right knee COMPARISON: None. RESULT: There is mild medial compartment narrowing with small tricompartmental marginal osteophyte formation. No joint effusion. No acute fracture. There is mild degenerative change of the left knee. DIVISION OF RADIOLOGY Provider, [facility] - 11/19/2020 * * *Final Report* * * DATE OF EXAM: Nov 19 2020 3:58PM WOX 5203 - XR KNEE 4V AP/PA BOTH+LAT/JAVI RT / PROCEDURE REASON: Acute pain of right knee * * * * Physician Interpretation * * * * HISTORY: Acute pain of right knee TECHNIQUE: 4 views of the right knee COMPARISON: None. RESULT: There is mild medial compartment narrowing with small tricompartmental marginal osteophyte formation. No joint effusion. No acute fracture. There is mild degenerative change of the left knee. IMPRESSION IMPRESSION: MILD DEGENERATIVE CHANGE OF BOTH KNEES Physical [facility] Transcribe Date/Time: Nov 19 2020 3:59P Dictated by : GARRETT WEBSTER MD This examination was interpreted and the report reviewed and electronically signed by: GARRETT WEBSTER MD on Nov 19 2020 4:00PM EST [facility] Radiology Study observation [facility]narrative[facility] X[facility] Knee - right 4 ViewsOrder ed By: [facility] Provider on 11-19-2020 [facility] XR Skull AP and Lateralon IMPRESSION: No acute osseous abnormality identified. Physical Therapy Nurse: PSCB Transcribe Date/Time: Nov 19 2020 4:35P Dictated by : RADHA PEGUERO MD This examination was interpreted and the report reviewed and electronically signed by: RADHA PEGUERO MD on Nov 19 2020 4:36PM EST DIVISION OF RADIOLOGY * * *Final Report* * * DATE OF EXAM: Nov 19 2020 3:58PM WOX 5259 - XR SKULL 2V AP/LAT / PROCEDURE REASON: Elevated alkaline phosphatase level * * * * Physician Interpretation * * * * Calvarium radiographs HISTORY: 40 years old Clinical information: Elevated alkaline phosphatase level pt states hx of migraines otherwise does not know why doctor ordered. TECHNIQUE: Images: XR SKULL 2V AP/LAT Comparison: None. RESULT: Findings: No fracture or dislocation. Normal bone mineralization. No lytic or blastic lesions are seen. Imaged paranasal sinuses appear to be well aerated. DIVISION OF RADIOLOGY Provider, [facility] * * *Final Report* * * DATE OF EXAM: Nov 19 2020 3:58PM WOX 5259 - XR SKULL 2V AP/LAT / PROCEDURE REASON: Elevated alkaline phosphatase level * * * * Physician Interpretation * * * * Calvarium radiographs HISTORY: 40 years old Clinical information: Elevated alkaline phosphatase level pt states hx of migraines otherwise does not know why doctor ordered. TECHNIQUE: Images: XR SKULL 2V AP/LAT Comparison: None. RESULT: Findings: No fracture or dislocation. Normal bone mineralization. No lytic or blastic lesions are seen. Imaged paranasal sinuses appear to be well aerated. IMPRESSION IMPRESSION: No acute osseous abnormality identified. Physical Therapy Nurse: PSCB Transcribe Date/Time: Nov 19 2020 4:35P Dictated by : RADHA PEGUERO MD This examination was interpreted and the report reviewed and electronically signed by: RADHA PEGUERO MD on Nov 19 2020 4:36PM [facility] XR Skull AP and LateralOrder ed By: [facility] Provider on 11-19-[address] [facility] [address] ABD/PEL W IVCONon 07-[address] ABD/PEL W IVCON Final Report DATE OF EXAM: Jun 20 2020 11:59AM [facility] 0530 - CT ABD/PEL W IVCON / PROCEDURE REASON: Abd pain, unspecified Physician Interpretation EXAMINATION: CT ABDOMEN AND PELVIS WITH IV CONTRAST CLINICAL HISTORY: Abdominal pain, POD9 status post resection of 8 liver cyst TECHNIQUE: CT of the abdomen and pelvis was performed using standard technique, scanning from just above the dome of the diaphragm to the symphysis pubis. MQ: CTAP_3 Contrast: IV: 150 ml of Visipaque 320 CT Radiation dose: Integrated Dose-length product (DLP) for this visit = [address] Dose Reduction Employed: Automated exposure control(AEC) and iterative recon COMPARISON: MRI of the abdomen 06/08/2020 and prior RESULT: Liver: Postsurgical changes in the right hepatic dome further resection of a cyst with a residual 8.3 x 4.4 cm cystic cavity and trace gas. No enhancement to suggest abscess formation. Other hepatic cysts bilaterally measure up to 3.1 cm in the left hepatic lobe. No suspicious hepatic lesion. Biliary: No bile duct dilation. Cholecystectomy. Spleen: No mass. No splenomegaly. A 0.8 cm accessory spleen is present. Pancreas: No mass or duct dilation. Adrenals: No mass. Kidneys: Symmetric nephrograms, no hydronephrosis. A 0.2 cm nonobstructing calculus is present in the inferior right renal pole and punctate calcification in the left [...] Lower thorax: No consolidation or pleural effusion. Visualized portions of the heart are unremarkable. [employer] (topogram) images: No additional findings. IMPRESSION: 1. Postsurgical changes in the posterior right hepatic dome with residual 8.3 cm cystic cavity with trace likely postsurgical gas, but no peripheral enhancement to suggest acute inflammation. 2. Other hepatic cyst are unchanged. 3. No acute intra-abdominal or pelvic findings. Physical Therapy Nurse: HERMINIO Transcribe Date/Time: Jun 20 2020 12:16P Dictated by : NILAM OVIEDO MD This examination was interpreted and the report reviewed and electronically signed by: NILAM OVIEDO MD on Jun 20 2020 12:28PM [facility] CBCOrdered By: Allie ferreira on 10-08-2019 Erythrocyte distribution width (RBC) [Ratio] 13.6 % 11.5 - 14.5 % [employer] Work Phone: Hematocrit (Bld) [Volume fraction] 33.3 % Low 35 - 47 % [facility] Work Phone: [phone] Hemoglobin (Bld) [Mass/Vol] 11.3 g/dL Low 11.7 - 16 g/dL [facility] Work Phone: [phone] Interpretation and review of laboratory results Abnormal [facility] Work Phone: [phone] MCH (RBC) [Entitic mass] 30.4 pg 26 - 34 pg [facility] Work Phone: [phone] MCHC 33.9 % 32 - 36 % [facility] Work Phone: [phone] MCV (RBC) [Entitic vol] 89.9 fL 79 - 98 fL [facility] Work Phone: [phone] Platelet mean volume (Bld) [Entitic vol] 9.5 fL 7.4 - 10.4 fL [facility] Work Phone: [phone] Platelets (Bld) [#/Vol] 240 10*3/uL 140 - 440 10*3/uL [facility] Work Phone: [phone] RBC (Bld) [#/Vol] 3.70 10*6/uL Low 3.8 - 5.2 10*6/uL [facility] Work Phone: [phone] WBC (Bld) [#/Vol] 18.5 10*3/uL High 3.6 - 10.7 10*3/uL [facility] Work Phone: [phone] Test Performed by [facility], [address] [place] [address] [facility] Work Phone: [phone] Hemogramon 10-08-2019 Erythrocyte distribution width (RBC) [Ratio] 13.6 % Normal 11.5-14.5 [facility] Comment on above: Performed By: #### B MP3M, MG3, HEMOG #### [place] [address] [place] [address] Hematocrit (Bld) [Volume fraction] 33.3 % Low 35.0-47.0 [facility] Comment on above: Performed By: #### B MP3M, MG3, HEMOG #### [address] [address] [place] [address] Hemoglobin (Bld) [Mass/Vol] 11.3 g/dL Low 11.7-16.0 [facility] Comment on above: Performed By: #### B MP3M, MG3, HEMOG #### [address] [address] [place] MCH (RBC) [Entitic mass] 30.4 pg Normal 26.0-34.0 [facility] Comment on above: Performed By: #### B MP3M, MG3, HEMOG #### [address] [address] [place], [place] MCHC (RBC) [Mass/Vol] 33.9 % Normal 32.0-36.0 [facility] Comment on above: Performed By: #### B MP3M, MG3, HEMOG #### [address] [address] [place], [place] MCV (RBC) [Entitic vol] 89.9 fL Normal 79.0-98.0 [facility] Comment on above: Performed By: #### B MP3M, MG3, HEMOG #### [place] [address] [place] Platelet mean volume (Bld) [Entitic vol] 9.5 fL Normal 7.4-10.4 [facility] Comment on above: Performed By: #### B MP3M, MG3, HEMOG #### [place] [address] [place], [place] Platelets (Bld) [#/Vol] 240 10*3/uL Normal 140-440 [facility] Comment on above: Performed By: #### B MP3M, MG3, HEMOG #### [address] [address] [address], [place] RBC (Bld) [#/Vol] 3.70 10*6/uL Low 3.80-5.20 [facility] Comment on above: Performed By: #### B MP3M, MG3, HEMOG #### [place] [address] [address], [place] WBC (Bld) [#/Vol] 18.5 10*3/uL High 3.6-10.7 [facility] Comment on above: Performed By: #### B MP3M, MG3, HEMOG #### [facility] [address] [place] [address] Op Noteon 10-07-2019 Op Note PATIENT: SALLY VARGAS ADMISSION DATE: 10/07/2019 SURGERY DATE: 10/07/2019 DATE OF : 1980 AGE: 39 ADMITTING PHYSICIAN: Delon Palacios MD ATTENDING PHYSICIAN: Delon Palacios MD DICTATING PHYSICIAN: Delon Palacios MD OPERATIVE RECORD Procedure: REMOVAL OF INTRA-ABDOMINAL TUMOR, LESS THAN 5 CM. Preoperative Diagnosis: Right lower quadrant mass status post MICHELINE-BSO. Postoperative Diagnosis: Right lower quadrant mass status post MICHELINE-BSO. Anesthesia: General. Description of Procedure: A 39-year-old lady with severe pelvic pain, had a 5.9 cm multiseptated mass in the pelvis. The patient is status post right and left removal of the tubes and ovaries. She was having extreme pain and requested removal of this mass. The patient was identified and brought to the operating room. After administration of general anesthesia, Dooley catheter was placed. Exam under anesthesia did show resolution of the mass from a prior exam done in the office. She underwent abdominal prep and drape after Dooley catheter was placed. Time-out was performed. Antibiotics were given. The compression stockings on and running. Using a knife, a lower midline incision was made, sharply dividing down through the skin, subcutaneous tissue, and the fascia. The fascia was opened using Bovie cautery. The peritoneal cavity was opened using Metzenbaum scissors. Omental adhesions to the intra-abdominal wall were sharply lysed and the Henrique wound retractor was then placed. The Bookwalter retractor was also used to help move the bowel up out of the pelvis. The small bowel came out very nicely. Exam of the pelvis revealed no gross ovarian tubal or ovarian tissue noted. The right pelvic sidewall was examined and there was an approximately 3 to 4 cm cystic lesion in between the rectum and the pelvic sidewall. This corresponded to the mass that had been seen on imaging studies. The pelvic sidewall was opened, allowing the ureter to be identified. The mass was then dissected off the right pelvic sidewall and off the ureter using both sharp dissection as well as small burst of electrocautery. The ureter was identified throughout its course in the pelvis and the surgery and no evidence of any damage was performed. The cystic lesion was removed in its entirety using Bovie cautery and sharp dissection. Hemostasis was noted. The area was copiously irrigated. No other remaining tissue or masses were seen in the pelvis. All sponges, needles, and instruments was correct to the surgeon x2. The fascia was then closed using a running #1 PDS in a loop mass closure system, followed by subcutaneous 0-Vicryl interrupted sutures in subcutaneous tissue followed by running 3-0 Monocryl. EBL was about 100 cc. She was taken to the recovery room in stable condition with a minimal EBL. [employer] Job ID: [id number] Delon Palacios MD DOD:10/07/2019 10:46 A /semaj DOT:10/07/2019 12:51 P Job Number: [id number] Document Number: [id number] cc: Delon Palacios MD [facility] [address] [place] [address] Sunny Story MD [address] [place] [address], [address] Surgical Pathologyon 020 Surgical Pathology [id number] [facility] PATHOLOGY AND LABORATORY MEDICINE [address] [place] [address] FINAL SURGICAL PATHOLOGY REPORT NAME: SALLY VARGAS : 1980 39 Y F BILLING NO.: [id number] LOCATION: I 5117 01 PROCEDURE 10/07/2019 DATE: SURGEON: DELON PALACIOS MD RECEIVED 10/07/2019 DATE: ATTENDING: DELON PALACIOS MD REPORT DATE: 10/21/2019 COPIES TO: DIAGNOSIS: PELVIC CYST WALL, EXCISION - PORTION OF OVARIAN TISSUE WITH HYLANIZED CYST WALL AND ADHERENT FIBROADIPOSE TISSUE WITH HEMORRHAGE AND ORGANIZING FAT NECROSIS. SMT/SMT Signature> S RUBEN DAVENPORT M.D. CLINICAL INFORMATION: Pelvic mass, ovarian remnant SPECIMEN: PELVIC MASS, RESECTION GROSS DESCRIPTION: Right pelvic cyst wall Received in formalin are multiple segments of fibrofatty soft tissue aggregating to 4 x 4 cm. On transection, the specimen is grossly unremarkable. The specimen is entirely submitted in four cassettes. (bits ns, 4) [id number] Disclaimer: The following statement applies to all immunohistochemistry, in situ hybridization, molecular studies, and immunofluorescence testing. The use of one or more reagents in the above tests is regulated as an analyte specific reagent (ASR). These tests were developed and their performance characteristics determined by the clinical laboratories of [facility] [employer] [facility]. They have not been cleared by the US Food and Drug Administration (FDA). The FDA has determined that such clearance or approval is not necessary. All the above immunostains were performed on paraffin embedded tissue. Appropriate positive and negative controls (where applicable) were run in parallel with the patient's specimen; these controls showed expected staining pattern, with acceptable intensity of staining. Immunohistochemical assays have not been validated on decalcified tissues. Results should be interpreted with caution given the raised possibility of false negativity on decalcified specimens. Professional Performing Location: [address] [place] [address] [place] [address]. DEPARTMENT OF PATHOLOGY AND LABORATORY MEDICINE [place], [place] [address] Normal [facility] TS GELon 10-07-2019 TS GEL ABO Group: O Rh, Gel: POS Antibody Screen Gel: NEG Normal [facility] Comment on above: Performed By: #### B MP3M, MG3, HEMOG #### [address] [address] [place] [address] TYPE AND SCREENOrdered By: Concepcion Palacios on 10-07-2019 ABO Grouping O [facility] Work Phone: Rh Type Positive [facility] Work Phone: Comment on above: Test Performed by [facility], [place] [place] [address] Test Performed by [facility], [place] [address] [facility] Work Phone: Follicle Stim Hormoneon Follicle Stim Hormone 6.5 m[IU]/mL Normal [facility] Comment on above: Result Comment: Females: Follicular Phase ...... 2.3-12.6 Mid-cycle Peak ........ 5.2-17.5 Luteal Phase .......... 1.7-12.9 Post-menopausal ....... 12.7-132.2 Males: 0.7-10.8 Performed By: #### F SH3 #### [facility] [employer] [facility] [address] [place] [address] Follicle Stimulating Hormone Ordered By: Delon Palacios on 09-15-2019 FSH 6.5 m[IU]/mL [facility] Work Phone: Comment on above: Females: Follicular Phase ...... 2.3-12.6 Mid-cycle Peak ........ 5.2-17.5 Luteal Phase .......... 1.7-12.9 Post-menopausal ....... 12.7-132.2 Males: 0.7-10.8 Test Performed by [facility], [address] [place] [address] [facility] Work Phone: US PELVIS COMPLETE NON-OB TR ANSABDOMINAL AND TRANSVAGINALOrdered By: Valerie Gee on 09-11-2019 Patient Name: SALLY BALLARD ---Ultrasound--- Exam Date/Time 09/11/2019 14:17:16 EST Exam US Pelvis TA/TV Ordering Physician MARLA GEE REBECCA E. Accession Number [id number] CPT4 Codes 02722 (US Pelvis TA/TV), 81052 (US Transvaginal) Reason For Exam right ovarian mass seen on CT, s/p hysterectomy Report EXAMINATION: Transabdominal and transvaginal pelvic ultrasound. COMPARISON: CT scan of 09/11/2019 from [facility]. REASON FOR STUDY: Right ovarian mass; prior hysterectomy and bilateral oophorectomy. TECHNIQUE: Real-time orozco scale and supplemental color doppler imaging was performed both abdominally and transvaginally. FINDINGS: A multiseptated cystic mass measuring 5.9 cm x 3.2 cm x 3.4 cm is observed in the right adnexum. The uterus and bilateral ovaries are not identified consistent with prior hysterectomy and bilateral nephrectomies. No free pelvic fluid is evident. CONCLUSIONS: Multiseptated cystic right adnexal mass suspect for cystic neoplasm. Report Dictated on --- Final --- Dictated: 09/11/2019 2:18 pm Dictating Physician: MD BREWER B NELSON Signed Date and Time: 09/11/2019 2:29 pm Signed by: MD BREWER B NELSON Transcribed Date and Time: 09/11/2019 2:18 [facility] Work Phone: Uri[facility], [facility] Incoming Radiology Results From [facility] - 09/11/2019 2:30 PM EST Patient Name: SALLY VARGAS ---Ultrasound--- Exam Date/Time 09/11/2019 14:17:16 EST Exam US Pelvis TA/TV Ordering Physician MARLA GEE REBECCA E. Accession Number [id number] CPT4 Codes 94041 (US Pelvis TA/TV), 69760 (US Transvaginal) Reason For Exam right ovarian mass seen on CT, s/p hysterectomy Report EXAMINATION: Transabdominal and transvaginal pelvic ultrasound. COMPARISON: CT scan of 09/11/2019 from [facility]. REASON FOR STUDY: Right ovarian mass; prior hysterectomy and bilateral oophorectomy. TECHNIQUE: Real-time orozco scale and supplemental color doppler imaging was performed both abdominally and transvaginally. FINDINGS: A multiseptated cystic mass measuring 5.9 cm x 3.2 cm x 3.4 cm is observed in the right adnexum. The uterus and bilateral ovaries are not identified consistent with prior hysterectomy and bilateral nephrectomies. No free pelvic fluid is evident. CONCLUSIONS: Multiseptated cystic right adnexal mass suspect for cystic neoplasm. Report Dictated on --- Final --- Dictated: 09/11/2019 2:18 pm Dictating Physician: MD BREWER B NELSON Signed Date and Time: 09/11/2019 2:29 pm Signed by: MD BREWER B NELSON Transcribed Date and Time: 09/11/2019 2:18 [facility] Work Phone: US Pelvis TA/TVon 09-11-2019 US Pelvis TA/TV Patient Name: SALLY BALLARD Ultrasound Exam Date/Time 09/11/2019 14:17:16 EST Exam US Pelvis TA/TV Ordering Physician MARLA GEE REBECCA E. Accession Number [id number] CPT4 Codes 75579 (US Pelvis TA/TV), 88365 (US Transvaginal) Reason For Exam right ovarian mass seen on CT, s/p hysterectomy Report EXAMINATION: Transabdominal and transvaginal pelvic ultrasound. COMPARISON: CT scan of 09/11/2019 from [facility]. REASON FOR STUDY: Right ovarian mass; prior hysterectomy and bilateral oophorectomy. TECHNIQUE: Real-time orozco scale and supplemental color doppler imaging was performed both abdominally and transvaginally. FINDINGS: A multiseptated cystic mass measuring 5.9 cm x 3.2 cm x 3.4 cm is observed in the right adnexum. The uterus and bilateral ovaries are not identified consistent with prior hysterectomy and bilateral nephrectomies. No free pelvic fluid is evident. CONCLUSIONS: Multiseptated cystic right adnexal mass suspect for cystic neoplasm. Report Dictated on Final Dictated: 09/11/2019 2:18 pm Dictating Physician: MD BREWER B NELSON Signed Date and Time: 09/11/2019 2:29 pm Signed by: MD BREWER B NELSON Transcribed Date and Time: 09/11/2019 2:18 Normal [facility] Basic Metabolic Panelon 12-2 Calcium [Mass/Vol] 8.7 mg/dL Normal 8.4-10.4 [facility] Comment on above: Performed By: #### H KRYSF BMP3 #### [facility] [address] [place] [address] Anion gap [Moles/Vol] 7 Normal [facility] Comment on above: Performed By: #### H YADIEL BMP3 #### [facility] [address] [place] [address] CO2 [Moles/Vol] 24 mmol/L Normal 22-30 [facility] Comment on above: Performed By: #### H YADIEL BMP3 #### [facility] [address] [place] [address] Creatinine [Mass/Vol] 0.79 mg/dL Normal 0.52-1.25 [facility] Comment on above: Performed By: #### H YADIEL, BMP3 #### [facility] [address] [place] [address] GFR/1.73 sq M predicted among blacks MDRD (S/P/Bld) [Vol rate/Area] mL/min/{1.73_m2} Normal >60 [facility] Comment on above: Performed By: #### H EMDF, BMP3 #### [facility] [address] [place] [address] GFR/1.73 sq M predicted among non-blacks MDRD (S/P/Bld) [Vol rate/Area] mL/min/{1.73_m2} Normal >60 [facility] Comment on above: Result Comment: Sour ce- MDRD equation with creatinine calibration to IDMS(NKDEP) eGFR not recommended for drug dose adjustment Performed By: #### H YADIEL BMP3 #### [facility] [address] [place], [place] Glucose [Mass/Vol] 85 mg/dL Normal 70-100 [facility] Comment on above: Performed By: #### H YADIEL BMP3 #### [facility] [address] [place], [place] Urea nitrogen [Mass/Vol] 5 mg/dL Low 7-20 [facility] Comment on above: Performed By: #### H YADIEL BMP3 #### [place] [address] [address], [place] Chloride [Moles/Vol] 108 mmol/L High 98-107 [facility] Comment on above: Performed By: #### H YADIEL BMP3 #### [facility] [address], [place] Potassium [Moles/Vol] 4.0 mmol/L Normal 3.5-5.1 [facility] Comment on above: Performed By: #### H YADIEL BMP3 #### [facility] [address], [place] Sodium [Moles/Vol] 140 mmol/L Normal 135-145 [facility] Comment on above: Performed By: #### H YADIEL BMP3 #### [place] [address], [place] Basic Metabolic PanelOrdered By: Cornel Henry on 09-05-2019 Anion gap [Moles/Vol] 7 mmol/L [facility] Work Phone: Calcium [Mass/Vol] 8.7 mg/dL 8.4 - 10. 4 mg/dL [facility] Work Phone: Chloride [Moles/Vol] 108 mmol/L High 98 - 10 7 mmol/L [facility] Work Phone: [phone] CO2 [Moles/Vol] 24 mmol/L 22 - 30 mmol/L [facility] Work Phone: 1 Creatinine [Mass/Vol] 0.79 mg/dL 0.52 - 1.25 mg/dL [facility] Work Phone: EGFR IF NonAfrican Venezuelan >60.0 >60 mL/min [facility] Work Phone: Comment on above: Source- MDRD equatio n with creatinine calibration to IDMS(NKDEP) eGFR not recommended for drug dose adjustment GFR/1.73 sq M.predicted among blacks MDRD (S/P/Bld) [Vol rate/Area] mL/min/{1.73_m2} >60 mL/min [facility] Work Phone: 1 Glucose [Mass/Vol] 85 mg/dL 70 - 100 mg/dL [facility] Work Phone: Interpretation and review of laboratory results Abnormal [facility] Work Phone: Potassium [Moles/Vol] 4.0 mmol/L 3.5 - 5.1 mmol/L [facility] Work Phone: Sodium [Moles/Vol] 140 mmol/L 135 - 145 mmol/L [facility] Work Phone: [phone] Urea nitrogen [Mass/Vol] 5 mg/dL Low 7 - 20 mg/dL [facility] Work Phone: Test Performed by [facility], [address] [place] [id number] [facility] Work Phone: CBC Auto DifferentialOrdered By: Cornel Henry on 09-05-2019 Absolute Baso # 0.0 10*3/uL 0 - 0.2 10*3/uL [facility] Work Phone: [phone] Absolute Neut # 3.9 10*3/uL 1.8 - 7 10*3/uL [facility] Work Phone: 222 Basophils/100 WBC (Bld) 0.3 % 0 - 2 % S [facility] Work Phone: [phone] Eosinophils (Bld) [#/Vol] 0.2 10*3/uL 0 - 0.5 10*3/uL [facility] Work Phone: [phone] Eosinophils/100 WBC (Bld) 3.3 % 1 - 6 % [facility] Work Phone: 1() 222 Erythrocyte distribution width (RBC) [Ratio] 12.9 % 11.5 - 14.5 % [facility] Work Phone: 1() 222 Granulocytes/100 WBC (Bld) 55.5 % 40 - 80 % [facility] Work Phone: 1() 222 Hematocrit (Bld) [Volume fraction] 34.8 % Low 35 - 47 % [facility] Work Phone: 1() 222 Hemoglobin (Bld) [Mass/Vol] 11.5 g/dL Low 11.7 - 16 g/dL [employer] Work Phone: [phone] Interpretation and review of laboratory results Abnormal [employer] Work Phone: 1() 222 Lymphocytes (Bld) [#/Vol] 2.5 10*3/uL 1 - 4.3 10*3/uL [employer] Work Phone: 1() 222 Lymphocytes/100 WBC (Bld) 35.4 % 20 - 40 % [facility] Work Phone: [phone] 222 MCH (RBC) [Entitic mass] 29.9 pg 26 - 34 pg [employer] Work Phone: [phone] MCHC 33.0 % 32 - 36 % [employer] Work Phone: [phone] MCV (RBC) [Entitic vol] 90.7 fL 79 - 98 fL [facility] [employer] Work Phone: 1() 222 Monocytes (Bld) [#/Vol] 0.4 10*3/uL 0 - 0.8 10*3/uL [facility] Work Phone: 1() 222 Monocytes/100 WBC (Bld) 5.5 % 2 - 10 % [facility] [employer] Work Phone: 1() 222 Platelet mean volume (Bld) [Entitic vol] 9.8 fL 7.4 - 10.4 fL [facility] Work Phone: 1() 222 Platelets (Bld) [#/Vol] 204 10*3/uL 140 - 440 10*3/uL [facility] Work Phone: 1() 222 RBC (Bld) [#/Vol] 3.83 10*6/uL 3.8 - 5.2 10*6/uL [facility] Work Phone: WBC (Bld) [#/Vol] 7.0 10*3/uL 3.6 - 10.7 10*3/uL [facility] Work Phone: Test Performed by [facility], [address] [place] [address] [facility] Work Phone: CR Urography Retrograde w/ + w/o KUBon 09-05-2019 CR Urography Retrograde w/ + w/o KUB Patient Name: SALLY VARGAS Diagnostic Radiology Exam Date/Time 09/05/2019 08:12:21 EST Exam CR Urography Retrograde w/ + w/o KUB Ordering Physician MAUREEN STONE Accession Number [id number] CPT4 Codes 16019 () Reason For Exam Renal stone fluro c arm c and p Report A total of 1 minute and 11 seconds of fluoro time was used in the Operating Suite for this procedure. No other report will be generated. Final Signed Date and Time: 09/26/2019 2:02 pm Signed by: TRANSFER MAN, SYSTEM Transcribed Date and Time: 09/26/2019 1:19 Transcribed By:KRISTAN Normal [facility] Hemogram w/ Autodiffon 09-05 Abs Baso Cnt 0.0 10*3/uL Normal 0.0-0.2 [facility] Comment on above: Performed By: #### H TANNER COTTO3 #### [address] [address] Abs Neutrophile Cnt 3.9 10*3/uL Normal 1.8-7.0 [facility] Comment on above: Performed By: #### H TANNER COTTO3 #### [address] [address] Basophils/100 WBC (Bld) 0.3 % Normal 0.0-2.0 [facility] Comment on above: Performed By: #### H TANNER COTTO3 #### [address] Eosinophils (Bld) [#/Vol] 0.2 10*3/uL Normal 0.0-0.5 [facility] Comment on above: Performed By: #### H YADIEL BMP3 #### [facility] [address] [place] [address] Eosinophils/100 WBC (Bld) 3.3 % Normal 1.0-6.0 [facility] Comment on above: Performed By: #### H YADIEL, BMP3 #### [facility] [address], [place] Erythrocyte distribution width (RBC) [Ratio] 12.9 % Normal 11.5-14.5 [facility] Comment on above: Performed By: #### H YADIEL, BMP3 #### [place] [address] [place], [place] Granulocytes/100 WBC (Bld) 55.5 % Normal 40.0-80.0 [facility] Comment on above: Performed By: #### H YADIEL, BMP3 #### [place] [address] [place], [place] Hematocrit (Bld) [Volume fraction] 34.8 % Low 35.0-47.0 [facility] Comment on above: Performed By: #### H YADIEL, BMP3 #### [place] [address] [place], [place] Hemoglobin (Bld) [Mass/Vol] 11.5 g/dL Low 11.7-16.0 [facility] Comment on above: Performed By: #### H EMDF, BMP3 #### [facility] [address], [place] Lymphocytes (Bld) [#/Vol] 2.5 10*3/uL Normal 1.0-4.3 [facility] Comment on above: Performed By: #### H EMDF, BMP3 #### [facility] [address] [place] [address] Lymphocytes/100 WBC (Bld) 35.4 % Normal 20.0-40.0 [facility] Comment on above: Performed By: #### H KRYSF, BMP3 #### [facility] [address], [place] MCH (RBC) [Entitic mass] 29.9 pg Normal 26.0-34.0 [facility] Comment on above: Performed By: #### H EMDF, BMP3 #### [facility] [address], [place] MCHC (RBC) [Mass/Vol] 33.0 % Normal 32.0-36.0 [facility] Comment on above: Performed By: #### H EMDF, BMP3 #### [place] [address] [place], [place] MCV (RBC) [Entitic vol] 90.7 fL Normal 79.0-98.0 [facility] Comment on above: Performed By: #### H EMDF, BMP3 #### [place] [address] [place], [place] Monocytes (Bld) [#/Vol] 0.4 10*3/uL Normal 0.0-0.8 [facility] Comment on above: Performed By: #### H EMDF, BMP3 #### [place] [address] [place], [place] Monocytes/100 WBC (Bld) 5.5 % Normal 2.0-10.0 [facility] Comment on above: Performed By: #### H EMDF, BMP3 #### [place] [address] [place], [place] Platelet mean volume (Bld) [Entitic vol] 9.8 fL Normal 7.4-10.4 [facility] Comment on above: Performed By: #### H EMDF, BMP3 #### [place] [address] [place], [place] Platelets (Bld) [#/Vol] 204 10*3/uL Normal 140-440 [facility] Comment on above: Performed By: #### H EMDF, BMP3 #### [place] [address] [place], [place] RBC (Bld) [#/Vol] 3.83 10*6/uL Normal 3.80-5.20 [facility] Comment on above: Performed By: #### H EMDF, BMP3 #### [place] [address] [place], [place] WBC (Bld) [#/Vol] 7.0 10*3/uL Normal 3.6-10.7 [facility] Comment on above: Performed By: #### H EMDF, BMP3 #### [place] [address] [place], [place] Basic Metabolic Panelon 12-2 Potassium [Moles/Vol] 3.5 mmol/L Normal 3.5-5.1 [facility] Comment on above: Performed By: #### B MP3M, MG3, HEMOG #### [place] [address] [place], [place] Anion gap [Moles/Vol] 9 Normal [facility] Comment on above: Performed By: #### B MP3M, MG3, HEMOG #### [place] [address] [place], [place] Calcium [Mass/Vol] 8.8 mg/dL Normal 8.4-10.4 [facility] Comment on above: Performed By: #### B MP3M, MG3, HEMOG #### [place] [address] [place], [place] CO2 [Moles/Vol] 26 mmol/L Normal 22-30 [facility] Comment on above: Performed By: #### B MP3M, MG3, HEMOG #### [place] [address] [place], [place] Glucose [Mass/Vol] 76 mg/dL Normal 70-100 [facility] Comment on above: Performed By: #### B MP3M, MG3, HEMOG #### [place] [address] [place], [place] Urea nitrogen [Mass/Vol] 10 mg/dL Normal 7-20 [facility] Comment on above: Performed By: #### B MP3M, MG3, HEMOG #### [place] [address] [place], [place] Creatinine [Mass/Vol] 0.81 mg/dL Normal 0.52-1.25 [facility] Comment on above: Performed By: #### B MP3M, MG3, HEMOG #### [place] [address] [place] [address] GFR/1.73 sq M predicted among blacks MDRD (S/P/Bld) [Vol rate/Area] mL/min/{1.73_m2} Normal >60 [facility] Comment on above: Performed By: #### B MP3M, MG3, HEMOG #### [place] [address] [place], [place] GFR/1.73 sq M predicted among non-blacks MDRD (S/P/Bld) [Vol rate/Area] mL/min/{1.73_m2} Normal >60 [facility] Comment on above: Result Comment: Sour ce- MDRD equation with creatinine calibration to IDMS(NKDEP) eGFR not recommended for drug dose adjustment Performed By: #### B MP3M, MG3, HEMOG #### [place] [address] [place], [place] Sodium [Moles/Vol] 138 mmol/L Normal 135-145 [facility] Comment on above: Performed By: #### B MP3M, MG3, HEMOG #### [place] [address] [place], [place] Chloride [Moles/Vol] 103 mmol/L Normal 98-107 [facility] Comment on above: Performed By: #### B MP3M, MG3, HEMOG #### [place] [address] [place], [place] Basic Metabolic Panel w/ Ref emily to MGOrdered By: Raghu Rivers on 09-04-2019 Anion gap [Moles/Vol] 9 mmol/L [facility] Work Phone: Calcium [Mass/Vol] 8.8 mg/dL 8.4 - 10. 4 mg/dL [facility] Work Phone: Chloride [Moles/Vol] 103 mmol/L 98 - 10 7 mmol/L [facility] Work Phone: [phone] CO2 [Moles/Vol] 26 mmol/L 22 - 30 mmol/L [facility] Work Phone: Creatinine [Mass/Vol] 0.81 mg/dL 0.52 - 1.25 mg/dL [facility] Work Phone: [phone] EGFR IF NonAfrican Venezuelan >60.0 >60 mL/min [facility] Work Phone: Comment on above: Source- MDRD equatio n with creatinine calibration to IDMS(NKDEP) eGFR not recommended for drug dose adjustment GFR/1.73 sq M.predicted among blacks MDRD (S/P/Bld) [Vol rate/Area] mL/min/{1.73_m2} >60 mL/min [facility] Work Phone: 1 Glucose [Mass/Vol] 76 mg/dL 70 - 100 mg/dL [facility] Work Phone: [phone] Potassium [Moles/Vol] 3.5 mmol/L 3.5 - 5.1 mmol/L [facility] Work Phone: Sodium [Moles/Vol] 138 mmol/L 135 - 145 mmol/L [facility] Work Phone: [phone] Urea nitrogen [Mass/Vol] 10 mg/dL 7 - 20 mg/dL [facility] Work Phone: Test Performed by [facility], [address] [place] [address] [facility] Work Phone: CBCOrdered By: Raghu Rivers on 09-04-2019 Erythrocyte distribution width (RBC) [Ratio] 13.2 % 11.5 - 14.5 % [facility] Work Phone: [phone] Hematocrit (Bld) [Volume fraction] 36.7 % 35 - 47 % [facility] Work Phone: Hemoglobin (Bld) [Mass/Vol] 12.3 g/dL 11.7 - 16 g/dL [facility] Work Phone: [phone] MCH (RBC) [Entitic mass] 30.6 pg 26 - 34 pg [facility] Work Phone: MCHC 33.5 % 32 - 36 % [facility] Work Phone: [phone] MCV (RBC) [Entitic vol] 91.3 fL 79 - 98 fL [facility] Work Phone: Platelet mean volume (Bld) [Entitic vol] 10.4 fL 7.4 - 10.4 fL [facility] Work Phone: [phone] Platelets (Bld) [#/Vol] 211 10*3/uL 140 - 440 10*3/uL [facility] Work Phone: [phone] RBC (Bld) [#/Vol] 4.02 10*6/uL 3.8 - 5.2 10*6/uL [facility] Work Phone: [phone] WBC (Bld) [#/Vol] 7.1 10*3/uL 3.6 - 10.7 10*3/uL [facility] Work Phone: [phone] Test Performed by [facility] [employer] [facility], [address] [place] [address] [facility] Work Phone: CULTURE URINEon 09-04-2019 CULTURE URINE CULTURE URINE --> Status: F No growth (<1,000 CFU/ml). Normal [facility] Comment on above: Order Comment: Speci men Source Comment:Urine, clean catch Performed By: #### C /UR #### [facility] [employer] [address] [place] [address] Hemogramon 09-04-2019 Erythrocyte distribution width (RBC) [Ratio] 13.2 % Normal 11.5-14.5 [facility] Comment on above: Performed By: #### B MP3M, MG3, HEMOG #### [employer] [address] [place] [address] Hematocrit (Bld) [Volume fraction] 36.7 % Normal 35.0-47.0 [facility] Comment on above: Performed By: #### B MP3M, MG3, HEMOG #### [facility] [address] [place] [address] Hemoglobin (Bld) [Mass/Vol] 12.3 g/dL Normal 11.7-16.0 [facility] Comment on above: Performed By: #### B MP3M, MG3, HEMOG #### [place] [address] [place], [place] MCH (RBC) [Entitic mass] 30.6 pg Normal 26.0-34.0 [facility] Comment on above: Performed By: #### B MP3M, MG3, HEMOG #### [place] [address] [place], [place] MCHC (RBC) [Mass/Vol] 33.5 % Normal 32.0-36.0 [facility] Comment on above: Performed By: #### B MP3M, MG3, HEMOG #### [place] [address] [place], [place] MCV (RBC) [Entitic vol] 91.3 fL Normal 79.0-98.0 [facility] Comment on above: Performed By: #### B MP3M, MG3, HEMOG #### [place] [address] [place], [place] Platelet mean volume (Bld) [Entitic vol] 10.4 fL Normal 7.4-10.4 [facility] Comment on above: Performed By: #### B MP3M, MG3, HEMOG #### [place] [address] [place], [place] Platelets (Bld) [#/Vol] 211 10*3/uL Normal 140-440 [facility] Comment on above: Performed By: #### B MP3M, MG3, HEMOG #### [place] [address] [place], [place] RBC (Bld) [#/Vol] 4.02 10*6/uL Normal 3.80-5.20 [facility] Comment on above: Performed By: #### B MP3M, MG3, HEMOG #### [place] [address] [place], [place] WBC (Bld) [#/Vol] 7.1 10*3/uL Normal 3.6-10.7 [facility] Comment on above: Performed By: #### B MP3M, MG3, HEMOG #### [address] [address] Magnesiumon 09-04-2019 Magnesium [Mass/Vol] 1.9 mg/dL Normal 1.6-2.3 [facility] Comment on above: Performed By: #### B MP3M, MG3, HEMOG #### [address] [address] MagnesiumOrdered By: Raghu Rivers on 09-04-2019 Magnesium [Mass/Vol] 1.9 mg/dL 1.6 - 2 .3 mg/dL [facility] Work Phone: Test Performed by [id number] [place] [address] Work Phone: Urine CultureOrdered By: Sebastian Rivers on 09-04-2019 Bacteria identified Cx Nom (U) No growth (<1,000 CFU/ml). [facility] Work Phone: Test Performed by [facility], [address] [place] [address] Specimen Source Comment:Urine, clean catch [facility] Work Phone: CR Abdomen APon 09-03-2019 CR Abdomen AP Patient Name: SALLY BALLARD Diagnostic Radiology Exam Date/Time 09/03/2019 17:35:36 EST Exam CR Abdomen AP Ordering Physician MD RACH,ITALO J Accession Number [id number] CPT4 Codes 31861 () Reason For Exam nephrolithiasis Report ABDOMEN, Single View: INDICATION: Nephrolithiasis COMPARISON: None. Supine images of the abdomen were obtained at 1733 hours. A moderate amount of feces is noted throughout the colon. There are no obvious findings to suggest pneumoperitoneum. No abnormal calcifications are identified. There is no appreciable mass effect. Review of the osseous structures demonstrate no gross abnormality. IMPRESSION: Unremarkable abdomen. Report Dictated on Final Dictated: 09/03/2019 8:46 pm Dictating Physician: DO WANG ALFRED Signed Date and Time: 09/03/2019 8:47 pm Signed by: DO WANG ALFRED Transcribed Date and Time: 09/03/2019 8:46 Normal [facility] XR ABDOMEN (KUB) (SINGLE AP VIEW)Ordered By: Italo Weaver on 09-03-2019 Patient Name: SALLY BALLARD ---Diagnostic Radiology--- Exam Date/Time 09/03/2019 17:35:36 EST Exam CR Abdomen AP Ordering Physician MD WEAVER MAX J Accession Number [id number] CPT4 Codes 71143 () Reason For Exam nephrolithiasis Report ABDOMEN, Single View: INDICATION: Nephrolithiasis COMPARISON: None. Supine images of the abdomen were obtained at 1733 hours. A moderate amount of feces is noted throughout the colon. There are no obvious findings to suggest pneumoperitoneum. No abnormal calcifications are identified. There is no appreciable mass effect. Review of the osseous structures demonstrate no gross abnormality. IMPRESSION: Unremarkable abdomen. Report Dictated on --- Final --- Dictated: 09/03/2019 8:46 pm Dictating Physician: DO WANG ALFRED Signed Date and Time: 09/03/2019 8:47 pm Signed by: DO WANG ALFRED Transcribed Date and Time: 09/03/2019 8:46 [facility] Work Phone: [facility] Incoming Radiology Results From [facility] - 09/03/2019 8:48 PM EST Patient Name: SALLY VARGAS ---Diagnostic Radiology--- Exam Date/Time 09/03/2019 17:35:36 EST Exam CR Abdomen AP Ordering Physician MD WEVAER MAX J Accession Number [id number] CPT4 Codes 91229 () Reason For Exam nephrolithiasis Report ABDOMEN, Single View: INDICATION: Nephrolithiasis COMPARISON: None. Supine images of the abdomen were obtained at 1733 hours. A moderate amount of feces is noted throughout the colon. There are no obvious findings to suggest pneumoperitoneum. No abnormal calcifications are identified. There is no appreciable mass effect. Review of the osseous structures demonstrate no gross abnormality. IMPRESSION: Unremarkable abdomen. Report Dictated on --- Final --- Dictated: 09/03/2019 8:46 pm Dictating Physician: DO WANG ALFRED Signed Date and Time: 09/03/2019 8:47 pm Signed by: DO WANG ALFRED Transcribed Date and Time: 09/03/2019 8:46 [facility] Work Phone: Vital Signs Date Time Vital Sign Value Performing Clinician Sandi nascimento 02-24-2025 13:37-0400 Diastolic blood pressure 78 mm[Hg] [employer] Work Phone: [facility] 02-24-2025 13:37-0400 Heart rate 79 /min [facility] [employer] [facility] Work Phone: [employer] 02-24-2025 13:37-0400 Respiratory rate 18 /min Silverio Haley Work Phone: [employer] 02-24-2025 13:37-0400 SaO2% (BldA) [Mass fraction] 100 % [facility] [employer] [facility] Work Phone: [employer] 02-24-2025 13:37-0400 Systolic blood pressure 115 mm[Hg] Silverio Haley Work Phone: [employer] 02-24-2025 11:12-0400 Body temperature 97.5 [degF] Silverio Haley Work Phone: [employer] 02-24-2025 11:12-0400 Body height 154.9 cm [employer] Work Phone: [facility] 02-24-2025 11:12-0400 Body mass index (BMI) [Ratio] 37.03 kg/m2 [employer] Work Phone: [employer] 02-24-2025 11:12-0400 Body weight 88.91 kg [facility] Work Phone: [employer] 02-14-2025 11:02-0400 Body mass index (BMI) [Ratio] 37.27 kg/m2 Merced Hutchinson APRN.CLASSROOM TEACHER Work Phone: [facility] 02-14-2025 11:02-0400 Body weight 90.7 kg Merced Evangelina CAR ATTENDANT.[employer]SRO[employer] TEACHER Work Phone: [facility] 02-14-2025 11:02-0400 Diastolic blood pressure 76 mm[Hg] Merced Evangelina CAR ATTENDANT.CLASSROOM TEACHER Work Phone: [facility] 02-14-2025 11:02-0400 Heart rate 82 /min Merced Evangelina CAR ATTENDANT.CLASSROOM TEACHER Work Phone: [facility] 02-14-2025 11:02-0400 SaO2% (BldA) [Mass fraction] 98 % Merced Evangelina CAR ATTENDANT.CLASSROOM TEACHER Work Phone: [facility] 02-14-2025 11:02-0400 Systolic blood pressure 128 mm[Hg] Merced Evangelina CAR ATTENDANT.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 Work Phone: [facility] 12-29-2024 14:17-0400 Body height 162.6 cm Sunny Story MD Work Phone: [facility] 12-29-2024 14:17-0400 Body mass index (BMI) [Ratio] 33.47 kg/m2 Sunny Story MD Work Phone: [facility] 12-29-2024 14:17-0400 Body weight 88.45 kg Sunny Story MD Work Phone: [facility] 12-29-2024 14:17-0400 Diastolic blood pressure 74 mm[Hg] Sunny Story MD Work Phone: [facility] 12-29-2024 14:17-0400 Systolic blood pressure 116 mm[Hg] Sunny Story MD Work Phone: [facility] 12-27-2024 16:04-0400 SaO2% (BldA) [Mass fraction] 99 % Damion Silva DO Work Phone: [facility] [employer] 12-27-2024 14:08-0400 Body temperature 98.6 [degF] Mejgon Shira DO Work Phone: [facility] [employer] 12-27-2024 14:08-0400 Diastolic blood pressure 99 mm[Hg] Mejgon Shira DO Work Phone: [facility] [employer] 12-27-2024 14:08-0400 Heart rate 79 /min Mejgon Shira DO Work Phone: [facility] [employer] 12-27-2024 14:08-0400 Respiratory rate 18 /min Mejgon Shira DO Work Phone: [facility] [employer] 12-27-2024 14:08-0400 Systolic blood pressure 148 mm[Hg] Mejgon Shira DO Work Phone: [facility] [employer] 12-21-2024 12:12-0400 Body height 162.6 cm Sunny Story MD Work Phone: [facility] [employer] 12-21-2024 12:12-0400 Body mass index (BMI) [Ratio] 33.47 kg/m2 Sunny Story MD Work Phone: [facility] [employer] 12-21-2024 12:12-0400 Body weight 88.45 kg Sunny Story MD Work Phone: [facility] [employer] 12-21-2024 12:12-0400 Diastolic blood pressure 84 mm[Hg] Sunny Story MD Work Phone: [facility] [employer] 12-21-2024 12:12-0400 Systolic blood pressure 128 mm[Hg] Sunny Story MD Work Phone: [facility] [employer] 12-17-2024 14:17-0400 Diastolic blood pressure 81 mm[Hg] Emiliano White MD Work Phone: [facility] [employer] 12-17-2024 14:17-0400 Heart rate 74 /min Emiliano White MD Work Phone: [facility] [employer] 12-17-2024 14:17-0400 Respiratory rate 16 /min Emiliano White MD Work Phone: [employer] 12-17-2024 14:17-0400 SaO2% (BldA) [Mass fraction] 99 % Emiliano White MD Work Phone: [facility] [employer] 12-17-2024 14:17-0400 Systolic blood pressure 131 mm[Hg] Emiliano White MD Work Phone: [employer] 12-17-2024 11:59-0400 Body height 154.9 cm Emiliano White MD Work Phone: [facility] [employer] 12-17-2024 11:59-0400 Body mass index (BMI) [Ratio] 36.84 kg/m2 Emiliano White MD Work Phone: [facility] [employer] 12-17-2024 11:59-0400 Body temperature 98.2 [degF] Emiliano White MD Work Phone: [facility] [employer] 12-17-2024 11:59-0400 Body weight 88.45 kg Emiliano White MD Work Phone: [facility] [employer] 12-15-2024 03:33-0400 Body temperature 97.2 [degF] Fan Nesheim DO Work Phone: [facility] [employer] 12-15-2024 03:30-0400 Diastolic blood pressure 75 mm[Hg] Fan Nesheim DO Work Phone: [facility] [employer] 12-15-2024 03:30-0400 Heart rate 88 /min Fan Nesheim DO Work Phone: [employer] 12-15-2024 03:30-0400 Respiratory rate 16 /min Fan Nesheim DO Work Phone: [employer] 12-15-2024 03:30-0400 SaO2% (BldA) [Mass fraction] 98 % Fan Nesheim DO Work Phone: [facility] [employer] 12-15-2024 03:30-0400 Systolic blood pressure 99 mm[Hg] Fan Nesheim DO Work Phone: [facility] 12-12-2024 17:29-0400 Diastolic blood pressure 60 mm[Hg] Marie Aguiar MD Work Phone: [facility] [facility] 12-12-2024 17:29-0400 Heart rate 80 /min Marie Aguiar MD Work Phone: [facility] 12-12-2024 17:29-0400 Respiratory rate 18 /min Marie Aguiar MD Work Phone: [facility] 12-12-2024 17:29-0400 SaO2% (BldA) [Mass fraction] 99 % Marie Aguiar MD Work Phone: [facility] 12-12-2024 17:29-0400 Systolic blood pressure 104 mm[Hg] Marie Aguiar MD Work Phone: [facility] 12-12-2024 14:39-0400 Body temperature 98.01 [degF] Marie Aguiar MD Work Phone: [facility] 12-12-2024 14:36-0400 Body height 154.9 cm Marie Aguiar MD Work Phone: [facility] 12-12-2024 14:36-0400 Body mass index (BMI) [Ratio] 38.36 kg/m2 Marie Aguiar MD Work Phone: [facility] 12-12-2024 14:36-0400 Body weight 92.08 kg Marie Aguiar MD Work Phone: [facility] 12-07-2024 10:52-0400 Body mass index (BMI) [Ratio] 39.24 kg/m2 Silverio Haley MD Work Phone: [facility] 12-07-2024 10:52-0400 Body weight 95.5 kg Silverio Haley MD Work Phone: [facility] 12-07-2024 10:52-0400 Diastolic blood pressure 86 mm[Hg] Silverio Haley MD Work Phone: [facility] 12-07-2024 10:52-0400 Heart rate 80 /min Silverio Haley MD Work Phone: [facility] 12-07-2024 10:52-0400 Respiratory rate 16 /min Silverio Haley MD Work Phone: [facility] 12-07-2024 10:52-0400 Systolic blood pressure 146 mm[Hg] Silverio Haley MD Work Phone: [facility] 11-30-2024 11:11-0400 Body mass index (BMI) [Ratio] 39.45 kg/m2 [employer]END[employer] TE[employer]ER Work Phone: [facility] 11-30-2024 11:11-0400 Body weight 96 kg [employer] ATTEND[employer] TEACHER Work Phone: [facility] 11-30-2024 11:11-0400 Diastolic blood pressure 80 mm[Hg] [employer] ATTENDANT.[employer] TEACHER Work Phone: [facility] 11-30-2024 11:11-0400 Heart rate 81 /min [employer] ATTENDANT.CL[employer] TEACHER Work Phone: [facility] 11-30-2024 11:11-0400 SaO2% (BldA) [Mass fraction] 99 % [employer] ATTENDANT.CL[employer]SROOM TEACHER Work Phone: [facility] 11-30-2024 11:11-0400 Systolic blood pressure 128 mm[Hg] [employer] CAR ATTENDANT.CL[employer]SROOM TEACHER Work Phone: [facility] 11-22-2024 10:44-0400 Body height 154.[address] Silverio Halye MD Work Phone: [facility] 11-22-2024 10:44-0400 Body mass index (BMI) [Ratio] 38.9 kg/m2 Dr. Silverio Haley MD Work Phone: [facility] 11-22-2024 10:44-0400 Body temperature 96.5 [degF] Dr. Silverio Haley MD Work Phone: 9(470)384-556921 [place] [address] 11-22-2024 10:44-0400 Body weight 93.[address] Silverio Haley MD Work Phone: 1(371)231-588885 [place] [address] 11-22-2024 10:44-0400 Diastolic blood pressure 88 mm[Hg] Dr. Silverio Haley MD Work Phone: 6(551)565-879885 [place] [address] 11-22-2024 10:44-0400 Heart rate 92 /min Dr. Silverio Haley MD Work Phone: 2(918)146-057685 [place] [address] 11-22-2024 10:44-0400 Respiratory rate 20 /min Dr. Silverio Haley MD Work Phone: 9(895)864-097785 [place] [address] 11-22-2024 10:44-0400 SaO2% (BldA) [Mass fraction] 99 % Dr. Silverio Haley MD Work Phone: 3(656)368-361685 [place] [address] 11-22-2024 10:44-0400 Systolic blood pressure 140 mm[Hg] Dr. Silverio Haley MD Work Phone: 0(497)590-504785 [place] [address] 11-17-2024 19:24-0500 Diastolic blood pressure 80 mm[Hg] Dr. Silverio Haley MD Work Phone: 8(123)171-912385 [place] [address] 11-17-2024 19:24-0500 Heart rate 78 /min Dr. Silverio Haley MD Work Phone: 3(801)778-298685 [place] [address] 11-17-2024 19:24-0500 Respiratory rate 14 /min Dr. Silverio Haley MD Work Phone: 1(833)363-823685 [place] [address] 11-17-2024 19:24-0500 SaO2% (BldA) [Mass fraction] 98 % Dr. Silverio Haley MD Work Phone: 6(649)772-081485 [place] [address] 11-17-2024 19:24-0500 Systolic blood pressure 140 mm[Hg] Dr. Silverio Haley MD Work Phone: 3(900)666-023285 [place] [address] 11-17-2024 17:25-0500 Body height 154.[address] Silverio Haley MD Work Phone: [facility] 11-17-2024 17:25-0500 Body mass index (BMI) [Ratio] 39.4 kg/m2 Dr. Silverio Haley MD Work Phone: [facility] 11-17-2024 17:25-0500 Body temperature 97.8 [degF] Dr. Silverio Haley MD Work Phone: [facility] 11-17-2024 17:25-0500 Body weight 94.[address] Silverio Haley MD Work Phone: [facility] 11-17-2024 14:30-0500 Body mass index (BMI) [Ratio] 38.79 kg/m2 Robbin Hernandez MD Work Phone: [facility] 11-17-2024 14:30-0500 Body weight 94.4 kg Robbin Hernandez MD Work Phone: [facility] 11-17-2024 14:30-0500 Diastolic blood pressure 76 mm[Hg] Robbin Hernandez MD Work Phone: [facility] 11-17-2024 14:30-0500 Heart rate 100 /min Robbin Hernandez MD Work Phone: [facility] 11-17-2024 14:30-0500 Systolic blood pressure 136 mm[Hg] Robbin Hernandez MD Work Phone: [facility] 11-04-2024 18:20-0500 Body mass index (BMI) [Ratio] 38.63 kg/m2 Marcelino 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 Work Phone: [facility] 11-04-2024 18:20-0500 Body temperature 98.8 [degF] Marcelino 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 Work Phone: [facility] 11-04-2024 18:20-0500 Body weight 94 kg Marcelino 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 Work Phone: [facility] 11-04-2024 18:20-0500 Diastolic blood pressure 74 mm[Hg] [facility].CL[employer]SROOM TEACHER Work Phone: [facility] 11-04-2024 18:20-0500 Heart rate 89 /min [facility]END[facility].CLASSROOM TEACHER Work Phone: [facility] 11-04-2024 18:20-0500 Respiratory rate 20 /min [facility] CAR ATTENDANT.CLASSROOM TEACHER Work Phone: [facility] 11-04-2024 18:20-0500 SaO2% (BldA) [Mass fraction] 99 % [facility] CAR ATTENDANT.CLASSROOM TEACHER Work Phone: [facility] 11-04-2024 18:20-0500 Systolic blood pressure 111 mm[Hg] [facility]ENDANT.CL[employer]SROOM TEACHER Work Phone: [facility] 10-27-2024 13:03-0500 Body mass index (BMI) [Ratio] 38.96 kg/m2 Robbin Hernandez MD Work Phone: [facility] 10-27-2024 13:03-0500 Body temperature 98.91 [degF] Robbin Hernandez MD Work Phone: [facility] 10-27-2024 13:03-0500 Body weight 94.8 kg Robbin Hernandez MD Work Phone: [facility] 10-27-2024 13:03-0500 Diastolic blood pressure 78 mm[Hg] Robbin Hernandez MD Work Phone: [facility] 10-27-2024 13:03-0500 Heart rate 80 /min Robbin Hernandez MD Work Phone: [facility] 10-27-2024 13:03-0500 Respiratory rate 18 /min Robbin Hernandez MD Work Phone: [facility] 10-27-2024 13:03-0500 Systolic blood pressure 120 mm[Hg] Robbin Hernandez MD Work Phone: [facility] 10-18-2024 11:41-0500 Body mass index (BMI) [Ratio] 39.94 kg/m2 Silverio Haley MD Work Phone: [facility] 10-18-2024 11:41-0500 Body temperature 98.8 [degF] Silverio Haley MD Work Phone: [facility] 10-18-2024 11:41-0500 Body weight 97.2 kg Silverio Haley MD Work Phone: [facility] 10-18-2024 11:41-0500 Diastolic blood pressure 78 mm[Hg] Silverio Haley MD Work Phone: [facility] 10-18-2024 11:41-0500 Heart rate 79 /min Silverio Haley MD Work Phone: [facility] 10-18-2024 11:41-0500 SaO2% (BldA) [Mass fraction] 98 % Silverio Haley MD Work Phone: [facility] 10-18-2024 11:41-0500 Systolic blood pressure 118 mm[Hg] Silverio Haley MD Work Phone: [facility] 10-17-2024 11:00-0500 Body mass index (BMI) [Ratio] 38.38 kg/m2 Mini Duenas APRN.CLASSROOM TEACHER Work Phone: [facility] 10-17-2024 11:00-0500 Body temperature 97.59 [degF] Mini Duenas APRN.CLASSROOM TEACHER Work Phone: [facility] 10-17-2024 11:00-0500 Body weight 93.4 kg Mini Duenas APRN.CLASSROOM TEACHER Work Phone: [facility] 10-17-2024 11:00-0500 Diastolic blood pressure 78 mm[Hg] Mini Duenas APRN.CLASSROOM TEACHER Work Phone: [facility] 10-17-2024 11:00-0500 Heart rate 90 /min Mini Duenas APRN.CLASSROOM TEACHER Work Phone: [facility] 10-17-2024 11:00-0500 Respiratory rate 16 /min Mini Duenas APRN.CLASSROOM TEACHER Work Phone: [facility] 10-17-2024 11:00-0500 SaO2% (BldA) [Mass fraction] 99 % Mini Duenas CAR ATTENDANT.CL[employer]SROOM TEACHER Work Phone: [facility] 10-17-2024 11:00-0500 Systolic blood pressure 124 mm[Hg] Mini Duenas CAR ATTENDANT.CLASSROOM TEACHER Work Phone: [facility] 10-13-2024 10:59-0500 Body mass index (BMI) [Ratio] 38.09 kg/m2 Maureen Barragan MD Work Phone: [facility] 10-13-2024 10:59-0500 Body temperature 97.7 [degF] Maureen Barragan MD Work Phone: [facility] 10-13-2024 10:59-0500 Body weight 92.7 kg Maureen Barragan MD Work Phone: [facility] 10-13-2024 10:59-0500 Diastolic blood pressure 84 mm[Hg] Maureen Barragan MD Work Phone: [facility] 10-13-2024 10:59-0500 Heart rate 73 /min Maureen Barragan MD Work Phone: [facility] 10-13-2024 10:59-0500 Respiratory rate 19 /min Maureen Barragan MD Work Phone: [facility] 10-13-2024 10:59-0500 SaO2% (BldA) [Mass fraction] 98 % Maureen Barragan MD Work Phone: [facility] 10-13-2024 10:59-0500 Systolic blood pressure 120 mm[Hg] Maureen Barragan MD Work Phone: [facility] 10-04-2024 20:00-0500 Body temperature 98.8 [degF] Dr. Silverio Haley MD Work Phone: [facility] 10-04-2024 20:00-0500 Diastolic blood pressure 63 mm[Hg] Dr. Silverio Haley MD Work Phone: [facility] 10-04-2024 20:00-0500 Heart rate 61 /min Dr. Silverio Haley MD Work Phone: [facility] 10-04-2024 20:00-0500 Respiratory rate 18 /min Dr. Silverio Haley MD Work Phone: [facility] 10-04-2024 20:00-0500 SaO2% (BldA) [Mass fraction] 99 % Dr. Silverio Haley MD Work Phone: [facility] 10-04-2024 20:00-0500 Systolic blood pressure 104 mm[Hg] Dr. Silverio Haley MD Work Phone: [facility] 10-04-2024 16:52-0500 Body mass index (BMI) [Ratio] 38.8 kg/m2 Dr. Silverio Haley MD Work Phone: [facility] 10-04-2024 16:52-0500 Body weight 93.[address] Silverio Haley MD Work Phone: [facility] 10-03-2024 09:47-0500 Body mass index (BMI) [Ratio] 37.93 kg/m2 Silverio Haley MD Work Phone: [facility] 10-03-2024 09:47-0500 Body temperature 98.6 [degF] Silverio Haley MD Work Phone: [facility] 10-03-2024 09:47-0500 Body weight 92.3 kg Silverio Haley MD Work Phone: [facility] 10-03-2024 09:47-0500 Diastolic blood pressure 74 mm[Hg] Silverio Haley MD Work Phone: [facility] 10-03-2024 09:47-0500 Heart rate 64 /min Silverio Haley MD Work Phone: [facility] 10-03-2024 09:47-0500 Respiratory rate 16 /min Silverio Haley MD Work Phone: [facility] 10-03-2024 09:47-0500 SaO2% (BldA) [Mass fraction] 100 % Silverio Haley MD Work Phone: [facility] 10-03-2024 09:47-0500 Systolic blood pressure 118 mm[Hg] Silverio Haley MD Work Phone: [facility] 09-24-2024 13:09-0500 Diastolic Blood Pressure Non-Invasive 72 mm[Hg] KAREY GILMORE MD [facility] 09-24-2024 13:09-0500 Heart rate 61 /min KAREY GILMORE MD [facility] 09-24-2024 13:09-0500 Mean blood pressure 85 mm[Hg] KAREY GILMORE MD [facility] 09-24-2024 13:09-0500 Respiratory rate 18 /min KAREY GILMORE MD [facility] 09-24-2024 13:09-0500 Systolic Blood Pressure Non-Invasive 113 mm[Hg] KAREY GILMORE MD [facility] 09-24-2024 10:33-0500 Blood Pressure Cuff Size KAREY GILMORE MD [facility] 09-24-2024 10:33-0500 Blood Pressure Location KAREY GILMORE MD [facility] 09-24-2024 10:33-0500 Blood Pressure Method KAREY GILMORE MD [facility] 09-24-2024 10:33-0500 Body temperature 98.24 [degF] KAREY GILMORE MD [facility] 09-24-2024 10:33-0500 Diastolic Blood Pressure Non-Invasive 87 mm[Hg] KAREY GILMORE MD [facility] 09-24-2024 10:33-0500 Heart rate 78 /min KAREY GILMORE MD [facility] 09-24-2024 10:33-0500 Respiratory rate 18 /min KAREY GILMORE MD [facility] 09-24-2024 10:33-0500 Systolic Blood Pressure Non-Invasive 126 mm[Hg] KAREY GILMORE MD [facility] 09-22-2024 19:11-0500 Blood Pressure Location MACKENZIE FROMAGNEST DO [facility] 09-22-2024 19:11-0500 Body temperature 98.24 [degF] MACKENZIE FROMMELT DO [facility] 09-22-2024 19:11-0500 Diastolic Blood Pressure Non-Invasive 67 mm[Hg] MACKENZIE FROMMELT DO [facility] 09-22-2024 19:11-0500 Heart rate 84 /min MACKENZIE FROMMELT DO [facility] 09-22-2024 19:11-0500 Respiratory rate 16 /min MACKENZIE FROMMELT DO [facility] 09-22-2024 19:11-0500 Systolic Blood Pressure Non-Invasive 114 mm[Hg] MACKENZIE FROMMELT DO [facility] 09-21-2024 10:36-0500 Body mass index (BMI) [Ratio] 37.31 kg/m2 Jaja Chahal APRN.CNP Work Phone: [facility] 09-21-2024 10:36-0500 Body temperature 97.2 [degF] Jaja ScanlonFela CAR ATTENDANT.CL[employer]SROOM TEACHER Work Phone: [facility] 09-21-2024 10:36-0500 Body weight 90.8 kg [facility] TE[employer] Work Phone: [facility] 09-21-2024 10:36-0500 Diastolic blood pressure 78 mm[Hg] [facility] Fela CAR ATTENDANT.CLASSROOM TEACHER Work Phone: [facility] 09-21-2024 10:36-0500 Heart rate 85 /min [facility] [employer] [facility].CL[employer] TEACHER Work Phone: [facility] 09-21-2024 10:36-0500 Respiratory rate 16 /min [facility] [employer] [facility].CL[employer]OOM TEACHER Work Phone: [facility] 09-21-2024 10:36-0500 SaO2% (BldA) [Mass fraction] 99 % [facility] [employer]END[employer]OOM TEACHER Work Phone: [facility] 09-21-2024 10:36-0500 Systolic blood pressure 126 mm[Hg] [facility] [employer] ATTEND[employer].CL[employer]SROOM TEACHER Work Phone: [facility] 08-21-2024 10:00-0500 Body mass index (BMI) [Ratio] 37.8 kg/m2 Dr. Silverio Haley MD Work Phone: 4(397)773-623321 [place] [address] 08-21-2024 10:00-0500 Body temperature 96.9 [degF] Dr. Silverio Haley MD Work Phone: [facility] 08-21-2024 10:00-0500 Body weight 90.[address] Silverio Haley MD Work Phone: 7(873)224-600821 [place] [address] 08-21-2024 10:00-0500 Diastolic blood pressure 77 mm[Hg] Dr. Silverio Haley MD Work Phone: 5(333)594-942621 [place] [address] 08-21-2024 10:00-0500 Heart rate 94 /min Dr. Silverio Haley MD Work Phone: 4(990)181-638821 [place] [address] 08-21-2024 10:00-0500 Respiratory rate 16 /min Dr. Silverio Haley MD Work Phone: [facility] 08-21-2024 10:00-0500 SaO2% (BldA) [Mass fraction] 99 % Dr. Silverio Haley MD Work Phone: [facility] 08-21-2024 10:00-0500 Systolic blood pressure 137 mm[Hg] Dr. Silverio Haley MD Work Phone: [facility] 07-28-2024 18:56-0500 Body mass index (BMI) [Ratio] 36.98 kg/m2 Holly Fraga CAR ATTENDANT.CLASSROOM TEACHER Work Phone: [facility] 07-28-2024 18:56-0500 Body temperature 98.49 [degF] Holly Fraga CAR ATTENDANT.CLASSROOM TEACHER Work Phone: [facility] 07-28-2024 18:56-0500 Body weight 90 kg Holly Fraga CAR ATTENDANT.CLASSROOM TEACHER Work Phone: [facility] 07-28-2024 18:56-0500 Diastolic blood pressure 78 mm[Hg] Holly Fraga CAR ATTENDANT.CLASSROOM TEACHER Work Phone: [facility] 07-28-2024 18:56-0500 Heart rate 96 /min Holly Fraga CAR ATTENDANT.CLASSROOM TEACHER Work Phone: [facility] 07-28-2024 18:56-0500 Respiratory rate 20 /min Holly Fraga CAR ATTENDANT.CLASSROOM TEACHER Work Phone: [facility] 07-28-2024 18:56-0500 SaO2% (BldA) [Mass fraction] 97 % Holly Fraga CAR ATTENDANT.CLASSROOM TEACHER Work Phone: [facility] 07-28-2024 18:56-0500 Systolic blood pressure 116 mm[Hg] Holly Fraga CAR ATTENDANT.CLASSROOM TEACHER Work Phone: [facility] 06-10-2024 11:27-0400 Body mass index (BMI) [Ratio] 37.43 kg/m2 Silverio Haley MD Work Phone: [facility] 06-10-2024 11:27-0400 Body temperature 96.1 [degF] Silverio Haley MD Work Phone: [facility] 06-10-2024 11:27-0400 Body weight 91.1 kg Silverio Haley MD Work Phone: [facility] 06-10-2024 11:27-0400 Diastolic blood pressure 72 mm[Hg] Silverio Haley MD Work Phone: [facility] 06-10-2024 11:27-0400 Heart rate 63 /min Silverio Haley MD Work Phone: [facility] 06-10-2024 11:27-0400 Respiratory rate 16 /min Silverio Haley MD Work Phone: [facility] 06-10-2024 11:27-0400 SaO2% (BldA) [Mass fraction] 97 % Silverio Haley MD Work Phone: [facility] 06-10-2024 11:27-0400 Systolic blood pressure 114 mm[Hg] Silverio Haley MD Work Phone: [facility] 03-31-2024 17:26-0400 Body mass index (BMI) [Ratio] 37.68 kg/m2 Marcelino 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 Work Phone: [facility] 03-31-2024 17:26-0400 Body temperature 98.29 [degF] Marcelino Bess CAR ATTENDANT.CLASSROOM TEACHER Work Phone: [facility] 03-31-2024 17:26-0400 Body weight 91.7 kg Marcelino Bess CAR ATTENDANT.CLASSROOM TEACHER Work Phone: [facility] 03-31-2024 17:26-0400 Diastolic blood pressure 80 mm[Hg] Marcelino Bess CAR ATTENDANT.CLASSROOM TEACHER Work Phone: [facility] 03-31-2024 17:26-0400 Heart rate 66 /min Marcelino Ulrichlekim CAR ATTENDANT.CLASSROOM TEACHER Work Phone: [facility] 03-31-2024 17:26-0400 Respiratory rate 18 /min Marcelino Maria Alejandra CAR ATTENDANT.CLASSROOM TEACHER Work Phone: [facility] 03-31-2024 17:26-0400 SaO2% (BldA) [Mass fraction] 97 % Marcelino Bess CAR ATTENDANT.CLASSROOM TEACHER Work Phone: [facility] 03-31-2024 17:26-0400 Systolic blood pressure 114 mm[Hg] Marcelino Maria Alejandra CAR ATTENDANT.CLASSROOM TEACHER Work Phone: [facility] 03-11-2024 17:00-0400 Body mass index (BMI) [Ratio] 37.8 kg/m2 Krislyn Aberegg PA Work Phone: [facility] 03-11-2024 17:00-0400 Body temperature 98.01 [degF] Krislyn Aberegg PA Work Phone: [facility] 03-11-2024 17:00-0400 Body weight 92 kg Krislyn Aberegg PA Work Phone: [facility] 03-11-2024 17:00-0400 Diastolic blood pressure 68 mm[Hg] Krislyn Aberegg PA Work Phone: [facility] 03-11-2024 17:00-0400 Heart rate 70 /min Krislyn Aberegg PA Work Phone: [facility] 03-11-2024 17:00-0400 Respiratory rate 18 /min Krislyn Aberegg PA Work Phone: [facility] 03-11-2024 17:00-0400 SaO2% (BldA) [Mass fraction] 98 % Krislyn Aberegg PA Work Phone: [facility] 03-11-2024 17:00-0400 Systolic blood pressure 103 mm[Hg] Krislyn Aberegg PA Work Phone: [facility] 02-04-2024 16:51-0400 Body temperature 97.52 [degF] ETHAN HENDERSON MD [facility] 02-04-2024 16:51-0400 Body weight 88 kg ETHAN HENDERSON MD [facility] 02-04-2024 16:51-0400 Diastolic Blood Pressure Non-Invasive 72 mm[Hg] ETHAN HENDERSON MD [facility] 02-04-2024 16:51-0400 Heart rate 97 /min ETHAN HENDERSON MD [facility] 02-04-2024 16:51-0400 Respiratory rate 20 /min ETHAN HENDERSON MD [facility] 02-04-2024 16:51-0400 Systolic Blood Pressure Non-Invasive 114 mm[Hg] ETHAN HENDERSON MD [facility] 01-30-2024 23:53-0400 Diastolic Blood Pressure Non-Invasive 94 mm[Hg] ETHAN HENDERSON MD [facility] 01-30-2024 23:53-0400 Heart rate 86 /min ETHAN HENDERSON MD [facility] 01-30-2024 23:53-0400 Respiratory rate 22 /min ETHAN HENDERSON MD [facility] 01-30-2024 23:53-0400 Systolic Blood Pressure Non-Invasive 134 mm[Hg] ETHAN HENDERSON MD [facility] 01-30-2024 22:56-0400 Blood Pressure Location ETHAN HENDERSON MD [facility] 01-30-2024 22:56-0400 Blood Pressure Method ETHAN HENDERSON MD [facility] 01-30-2024 22:56-0400 Body temperature 97.34 [degF] ETHAN HENDERSON MD [facility] 01-30-2024 22:56-0400 Diastolic Blood Pressure Non-Invasive 83 mm[Hg] ETHAN HENDERSON MD [facility] 01-30-2024 22:56-0400 Heart rate 93 /min ETHAN HENDERSON MD [facility] 01-30-2024 22:56-0400 Respiratory rate 22 /min ETHAN HENDERSON MD [facility] 01-30-2024 22:56-0400 Systolic Blood Pressure Non-Invasive 127 mm[Hg] ETHAN HENDERSON MD [facility] 01-16-2024 17:49-0400 Heart rate 66 /min Dr. Silverio Haley Work Phone: [facility] 01-16-2024 17:49-0400 Respiratory rate 16 /min Dr. Silverio Haley Work Phone: [facility] 01-16-2024 17:49-0400 SaO2% (BldA) [Mass fraction] 98 % Dr. Silverio Haley Work Phone: [facility] 01-16-2024 14:57-0400 Body height 154.[address] Silverio Haley Work Phone: [facility] 01-16-2024 14:57-0400 Body temperature 97.7 [degF] Dr. Silverio Haley Work Phone: [facility] 01-16-2024 14:57-0400 Diastolic blood pressure 83 mm[Hg] Dr. Silverio Haley Work Phone: [facility] 01-16-2024 14:57-0400 Systolic blood pressure 123 mm[Hg] Dr. Silverio Haley Work Phone: [facility] 01-01-2024 10:19-0400 Body mass index (BMI) [Ratio] 38.77 kg/m2 Silverio Haley MD Work Phone: [facility] 01-01-2024 10:190400 Body temperature 97 [degF] Silverio Haley MD Work Phone: [facility] 01-01-2024 10:19040 Body weight 94.35 kg Silverio Haley MD Work Phone: [facility] 01-01-2024 10:190400 Diastolic blood pressure 82 mm[Hg] Silverio Haley MD Work Phone: [facility] 01-01-2024 10:190400 Heart rate 64 /min Silverio Haley MD Work Phone: [facility] 01-01-2024 10:19-0400 Respiratory rate 18 /min Silverio Haley MD Work Phone: [facility] 01-01-2024 10:190400 SaO2% (BldA) [Mass fraction] 98 % Silverio Haley MD Work Phone: [facility] 01-01-2024 10:190400 Systolic blood pressure 118 mm[Hg] Silverio Haley MD Work Phone: [facility] 12-26-2023 17:26-0400 Body temperature 98 [degF] Dr. Silverio Haley Work Phone: [facility] 12-26-2023 17:26-0400 Diastolic blood pressure 63 mm[Hg] Dr. Silverio Haley Work Phone: [facility] 12-26-2023 17:26-0400 Heart rate 68 /min Dr. Silverio Haley Work Phone: 2(234)389-796521 [place] [address] 12-26-2023 17:26-0400 Respiratory rate 20 /min Dr. Silverio Haley Work Phone: 1(469)295-937185 [place] [address] 12-26-2023 17:26-0400 SaO2% (BldA) [Mass fraction] 96 % Dr. Silverio Haley Work Phone: 7(505)317-058721 [place] [address] 12-26-2023 17:26-0400 Systolic blood pressure 138 mm[Hg] Dr. Silverio Haley Work Phone: 3(611)268-577885 [place] [address] 12-26-2023 15:51-0400 Body height 154.[address] Silverio Haley Work Phone: 9(064)606-962585 [place] [address] 12-26-2023 15:51-0400 Body mass index (BMI) [Ratio] 39.4 kg/m2 Dr. Silverio Haley Work Phone: 0(002)071-912385 [place] [address] 12-26-2023 15:51-0400 Body weight 94.[address] Silverio Haley Work Phone: 5(099)562-976021 [place] [address] 12-24-2023 17:05-0400 Body temperature 97.4 [degF] Dr. Silverio Haley Work Phone: 8(247)985-417985 [place] [address] 12-24-2023 17:05-0400 Diastolic blood pressure 85 mm[Hg] Dr. Silverio Haley Work Phone: 8(381)639-380821 [place] [address] 12-24-2023 17:05-0400 Heart rate 88 /min Dr. Silverio Haley Work Phone: 9(097)360-376521 [place] [address] 12-24-2023 17:05-0400 Respiratory rate 16 /min Dr. Silverio Haley Work Phone: 8(154)197-350521 [place] [address] 12-24-2023 17:05-0400 SaO2% (BldA) [Mass fraction] 98 % Dr. Silverio Haley Work Phone: 5(007)869-023921 [address] [place] [id number] 12-24-2023 17:05-0400 Systolic blood pressure 123 mm[Hg] Dr. Silverio Haley Work Phone: [facility] 12-24-2023 17:01-0400 Body height 154.[address] Silverio Haley Work Phone: [facility] 12-24-2023 17:01-0400 Body mass index (BMI) [Ratio] 39.1 kg/m2 Dr. Silverio Haley Work Phone: [facility] 12-24-2023 17:01-0400 Body weight 93.[address] 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 Phone: [facility] 12-16-2023 16:51-0400 Body weight 94 kg Holly Fraga CAR ATTENDANT.CL[employer]SRO[employer] TEACHER Work Phone: [facility] 12-16-2023 16:51-0400 Diastolic blood pressure 78 mm[Hg] Holly Fraga CAR ATTENDANT.CL[employer]SRO[employer] TEACHER Work Phone: [facility] 12-16-2023 16:51-0400 Heart rate 80 /min Holly Fraga CAR ATTENDANT.CL[employer]SRO[employer] TEACHER Work Phone: [facility] 12-16-2023 16:51-0400 Respiratory rate 18 /min Holly Fraga CAR ATTENDANT.CLASSROOM TEACHER Work Phone: [facility] 12-16-2023 16:51-0400 SaO2% (BldA) [Mass fraction] 97 % Holly Fraga CAR ATTENDANT.CLASSROOM TEACHER Work Phone: [facility] 12-16-2023 16:51-0400 Systolic blood pressure 110 mm[Hg] Holly Fraga CAR ATTENDANT.CLASSROOM TEACHER Work Phone: [facility] 12-09-2023 18:22-0400 Body temperature 98.9 [degF] Dr. Silverio Haley Work Phone: 0(950)184-771685 [place] [address] 12-09-2023 18:22-0400 Diastolic blood pressure 76 mm[Hg] Dr. Silverio Haley Work Phone: 4(634)773-939885 [place] [address] 12-09-2023 18:22-0400 Heart rate 85 /min Dr. Silverio Haley Work Phone: 2(110)868-931285 [place] [address] 12-09-2023 18:22-0400 Respiratory rate 12 /min Dr. Silverio Haley Work Phone: 8(200)[phone] [place] [address] 12-09-2023 18:22-0400 SaO2% (BldA) [Mass fraction] 100 % Dr. Silverio Haley Work Phone: 9(246)[phone] [place] [address] 12-09-2023 18:22-0400 Systolic blood pressure 153 mm[Hg] Dr. Silverio Haley Work Phone: 0(034)[phone] [place] [address] 12-09-2023 17:31-0400 Body height 154.[address] Silverio Haley Work Phone: 6(376)910-447485 [place] [address] 12-09-2023 17:31-0400 Body mass index (BMI) [Ratio] 39.9 kg/m2 Dr. Silverio Haley Work Phone: 3(722)765-869485 [place] [address] 12-09-2023 17:31-0400 Body weight 95.[address] Silverio Haley Work Phone: 0(546)229-939585 [place] [address] 12-04-2023 15:25-0400 Body temperature 97.7 [degF] Dr. Silverio Haley Work Phone: 3(144)[phone] [place] [address] 12-04-2023 15:25-0400 Diastolic blood pressure 74 mm[Hg] Dr. Silverio Haley Work Phone: 5(039)945-923985 [place] [address] 12-04-2023 15:25-0400 Heart rate 64 /min Dr. Silverio Haley Work Phone: 2(075)285-932785 [place] [address] 12-04-2023 15:25-0400 Respiratory rate 16 /min Dr. Silverio Haley Work Phone: [facility] 12-04-2023 15:25-0400 SaO2% (BldA) [Mass fraction] 99 % Dr. Silverio Haley Work Phone: [facility] 12-04-2023 15:25-0400 Systolic blood pressure 98 mm[Hg] Dr. Silverio Haley Work Phone: [facility] 12-04-2023 09:57-0400 Body height 154.[address] Silverio Haley Work Phone: [facility] 12-04-2023 09:57-0400 Body weight 93.[address] Silverio Haley Work Phone: [facility] 12-03-2023 17:37-0400 Body mass index (BMI) [Ratio] 39.1 kg/m2 Dr. Silverio Haley Work Phone: [facility] 12-03-2023 17:15-0400 Body temperature 98 [degF] [facility] 12-03-2023 17:15-0400 Diastolic blood pressure 78 mm[Hg] [facility] 12-03-2023 17:15-0400 Heart rate 67 /min [facility] 12-03-2023 17:15-0400 Respiratory rate 16 /min [facility] 12-03-2023 17:15-0400 SaO2% (BldA) [Mass fraction] 99 % [facility] 12-03-2023 17:15-0400 Systolic blood pressure 124 mm[Hg] [facility] 12-03-2023 14:23-0400 Body height 154.94 cm [facility] 12-03-2023 14:23-0400 Body mass index (BMI) [Ratio] 39.4 kg/m2 [facility] 12-03-2023 14:23-0400 Body weight 94.7 kg [facility] 10-25-2023 17:29-0500 Diastolic blood pressure 81 mm[Hg] [facility] 10-25-2023 17:29-0500 Systolic blood pressure 113 mm[Hg] [facility] 10-25-2023 16:30-0500 Body height 154.94 cm [facility] 10-25-2023 16:30-0500 Body mass index (BMI) [Ratio] 35.9 kg/m2 [facility] 10-25-2023 16:30-0500 Body temperature 98.3 [degF] [facility] 10-25-2023 16:30-0500 Body weight 86.26 kg [facility] 10-25-2023 16:30-0500 Heart rate 85 /min [facility] 10-25-2023 16:30-0500 Respiratory rate 16 /min [facility] 10-25-2023 16:30-0500 SaO2% (BldA) [Mass fraction] 100 % [facility] 10-24-2023 20:01-0500 Body height 154.94 cm [facility] 10-24-2023 20:01-0500 Body mass index (BMI) [Ratio] 40.2 kg/m2 [facility] 10-24-2023 20:01-0500 Body temperature 97 [degF] [facility] 10-24-2023 20:01-0500 Body weight 96.6 kg [facility] 10-24-2023 20:01-0500 Diastolic blood pressure 85 mm[Hg] [facility] 10-24-2023 20:01-0500 Heart rate 117 /min [facility] 10-24-2023 20:01-0500 Respiratory rate 25 /min [facility] 10-24-2023 20:01-0500 SaO2% (BldA) [Mass fraction] 98 % [facility] 10-24-2023 20:01-0500 Systolic blood pressure 139 mm[Hg] [facility] 09-20-2023 07:23-0500 Body height 154.94 cm [facility] 09-20-2023 07:23-0500 Body mass index (BMI) [Ratio] 39.2 kg/m2 [facility] 09-20-2023 07:23-0500 Body temperature 97.2 [degF] [facility] 09-20-2023 07:23-0500 Body weight 94.34 kg [facility] 09-20-2023 07:23-0500 Diastolic blood pressure 88 mm[Hg] [facility] 09-20-2023 07:23-0500 Heart rate 96 /min [facility] 09-20-2023 07:23-0500 Respiratory rate 15 /min [facility] 09-20-2023 07:23-0500 SaO2% (BldA) [Mass fraction] 99 % [facility] 09-20-2023 07:23-0500 Systolic blood pressure 139 mm[Hg] [facility] 08-18-2023 14:12-0500 Body temperature 98.1 [degF] Milly Praisler-Wood CAR ATTENDANT.[employer]SRO[employer] TEACHER Work Phone: [facility] 08-18-2023 14:12-0500 Body weight 94.35 kg Milly Praisler-Wood CAR ATTENDANT.[employer] TEACHER Work Phone: [facility] 08-18-2023 14:12-0500 Diastolic blood pressure 96 mm[Hg] Milly Praisler-Wood CAR ATTENDANT.CL[employer]SROOM TEACHER Work Phone: [facility] 08-18-2023 14:12-0500 Heart rate 80 /min Milly Praisler-Wood CAR ATTENDANT.CL[employer] TEACHER Work Phone: [facility] 08-18-2023 14:12-0500 Respiratory rate 16 /min Milly Praisler-Wood CAR ATTENDANT.CL[employer]SROOM TEACHER Work Phone: [facility] 08-18-2023 14:12-0500 SaO2% (BldA) [Mass fraction] 96 % Milly Praisler-Wood CAR ATTENDANT.CL[employer]SROOM TEACHER Work Phone: [facility] 08-18-2023 14:12-0500 Systolic blood pressure 142 mm[Hg] Milly Praisler-Wood CAR ATTENDANT.CL[employer]SROOM TEACHER Work Phone: [facility] 08-12-2023 16:57-0500 Body temperature 97.81 [degF] Milly Praisler-Wood CAR ATTENDANT.CL[employer]SROOM TEACHER Work Phone: [facility] 08-12-2023 16:57-0500 Body weight 94.62 kg Milly Praisler-Wood CAR ATTENDANT.CL[employer]SROOM TEACHER Work Phone: [facility] 08-12-2023 16:57-0500 Diastolic blood pressure 78 mm[Hg] Milly Praisler-Wood CAR ATTENDANT.CL[employer]SROOM TEACHER Work Phone: [facility] 08-12-2023 16:57-0500 Heart rate 80 /min Milly Praisler-Wood CAR ATTENDANT.CL[employer]SROOM TEACHER Work Phone: [facility] 08-12-2023 16:57-0500 Respiratory rate 21 /min Milly Praisler-Wood CAR ATTENDANT.CLASSROOM TEACHER Work Phone: [facility] 08-12-2023 16:57-0500 SaO2% (BldA) [Mass fraction] 98 % Milly Praisler-Wood CAR ATTENDANT.CLASSROOM TEACHER Work Phone: [facility] 08-12-2023 16:57-0500 Systolic blood pressure 110 mm[Hg] Milly Praisler-Wood CAR ATTENDANT.CLASSROOM TEACHER Work Phone: [facility] 07-22-2023 17:42-0500 Respiratory rate 18 /min [facility] 07-22-2023 16:54-0500 Diastolic blood pressure 78 mm[Hg] [facility] 07-22-2023 16:54-0500 Heart rate 89 /min [facility] 07-22-2023 16:54-0500 Systolic blood pressure 114 mm[Hg] [facility] 07-22-2023 15:43-0500 Body height 154.94 cm [facility] 07-22-2023 15:43-0500 Body mass index (BMI) [Ratio] 39.6 kg/m2 [facility] 07-22-2023 15:43-0500 Body temperature 98.1 [degF] [facility] 07-22-2023 15:43-0500 Body weight 95.3 kg [facility] 07-22-2023 15:43-0500 SaO2% (BldA) [Mass fraction] 96 % [facility] 06-11-2023 16:44-0400 Heart rate 81 /min [facility] 06-11-2023 16:44-0400 Respiratory rate 18 /min [facility] 06-11-2023 16:44-0400 SaO2% (BldA) [Mass fraction] 100 % [facility] 06-11-2023 16:29-0400 Body height 154.94 cm [facility] 06-11-2023 16:29-0400 Body temperature 97.5 [degF] [facility] 06-11-2023 16:29-0400 Diastolic blood pressure 141 mm[Hg] [facility] 06-11-2023 16:29-0400 Systolic blood pressure 170 mm[Hg] [facility] 06-06-2023 17:22-0400 Diastolic blood pressure 102 mm[Hg] [facility] 06-06-2023 17:22-0400 Systolic blood pressure 168 mm[Hg] [facility] 06-06-2023 16:49-0400 Body mass index (BMI) [Ratio] 40.5 kg/m2 [facility] 06-06-2023 16:49-0400 Body weight 97.3 kg [facility] 06-06-2023 16:42-0400 Body height 154.94 cm [facility] 06-06-2023 16:42-0400 Body temperature 98.2 [degF] [facility] 06-06-2023 16:42-0400 Heart rate 95 /min [facility] 06-06-2023 16:42-0400 Respiratory rate 16 /min [facility] 06-06-2023 16:42-0400 SaO2% (BldA) [Mass fraction] 98 % [facility] 05-04-2023 17:22-0400 Body mass index (BMI) [Ratio] 38.3 kg/m2 [facility] 05-04-2023 17:22-0400 Body weight 92.07 kg [facility] 05-04-2023 17:02-0400 Body height 154.94 cm [facility] 05-04-2023 17:02-0400 Body temperature 98 [degF] [facility] 05-04-2023 17:02-0400 Diastolic blood pressure 77 mm[Hg] [facility] 05-04-2023 17:02-0400 Heart rate 98 /min [facility] 05-04-2023 17:02-0400 Respiratory rate 18 /min [facility] 05-04-2023 17:02-0400 SaO2% (BldA) [Mass fraction] 99 % [facility] 05-04-2023 17:02-0400 Systolic blood pressure 134 mm[Hg] [facility] 04-16-2023 16:34-0400 Body mass index (BMI) [Ratio] 38.7 kg/m2 [facility] 04-16-2023 16:34-0400 Body temperature 98.8 [degF] [facility] 04-16-2023 16:34-0400 Body weight 92.98 kg [facility] 04-16-2023 16:34-0400 Diastolic blood pressure 69 mm[Hg] [facility] 04-16-2023 16:34-0400 Heart rate 90 /min [facility] 04-16-2023 16:34-0400 Respiratory rate 17 /min [facility] 04-16-2023 16:34-0400 SaO2% (BldA) [Mass fraction] 99 % [facility] 04-16-2023 16:34-0400 Systolic blood pressure 108 mm[Hg] [facility] 04-01-2023 17:15-0400 Body height 154.94 cm [facility] 04-01-2023 17:15-0400 Body mass index (BMI) [Ratio] 38.8 kg/m2 [facility] 04-01-2023 17:15-0400 Body temperature 98.1 [degF] [facility] 04-01-2023 17:15-0400 Body weight 93.25 kg [facility] 04-01-2023 17:15-0400 Diastolic blood pressure 98 mm[Hg] [facility] 04-01-2023 17:15-0400 Heart rate 75 /min [facility] 04-01-2023 17:15-0400 Respiratory rate 17 /min [facility] 04-01-2023 17:15-0400 SaO2% (BldA) [Mass fraction] 99 % [facility] 04-01-2023 17:15-0400 Systolic blood pressure 116 mm[Hg] [facility] 03-30-2023 08:36-0400 Body weight 92.08 kg Merced Evangelina CAR ATTENDANT.[employer] TEACHER Work Phone: [facility] 03-30-2023 08:36-0400 Diastolic blood pressure 70 mm[Hg] Merced Evangelina CAR ATTENDANT.[employer]SRO[employer] TEACHER Work Phone: [facility] 03-30-2023 08:36-0400 Heart rate 70 /min Merced Evangelina CAR ATTENDANT.CL[employer]SRO[employer] TEACHER Work Phone: [facility] 03-30-2023 08:36-0400 SaO2% (BldA) [Mass fraction] 98 % Merced Evangelina CAR ATTENDANT.CL[employer]SRO[employer] TEACHER Work Phone: [facility] 03-30-2023 08:36-0400 Systolic blood pressure 100 mm[Hg] Merced Evangelina CAR ATTENDANT.CL[employer]SROOM TEACHER Work Phone: [facility] 03-16-2023 15:40-0400 Body temperature 97.7 [degF] PIERCE MARS CAR ATTENDANT-CLASSROOM TEACHER [facility] 03-16-2023 15:40-0400 Diastolic Blood Pressure Non-Invasive 55 1 PIERCE MARS CAR ATTENDANT-CL[employer]SROOM TEACHER [facility] 03-16-2023 15:40-0400 Heart rate 77 /min PIERCE MARS CAR ATTENDANT-CL[employer]SROOM TEACHER [facility] 03-16-2023 15:40-0400 Respiratory rate 16 /min PIERCE MARS CAR ATTENDANT-CL[employer]SROOM TEACHER [facility] 03-16-2023 15:40-0400 Systolic Blood Pressure Non-Invasive 96 1 PIERCE MARS CAR ATTENDANT-CL[employer]SROOM TEACHER [facility] 03-16-2023 11:09-0400 Body temperature 97.7 [degF] PIERCE KAPPER CAR ATTENDANT-CLASSROOM TEACHER [facility] 03-16-2023 11:09-0400 Diastolic Blood Pressure Non-Invasive 56 1 PIERCE KAPPER CAR ATTENDANT-CL[employer]SROOM TEACHER [facility] 03-16-2023 11:09-0400 Heart rate 63 /min PIERCE KAPPER CAR ATTENDANT-CL[employer]SROOM TEACHER [facility] 03-16-2023 11:09-0400 Respiratory rate 16 /min PIERCE KAPPER CAR ATTENDANT-CL[employer]SROOM TEACHER [facility] 03-16-2023 11:09-0400 Systolic Blood Pressure Non-Invasive 99 1 PIERCE KAPPER CAR ATTENDANT-CL[employer]SROOM TEACHER [facility] 03-16-2023 07:20-0400 Body temperature 97.52 [degF] PIERCE KAPPER CAR ATTENDANT-CL[employer]SROOM TEACHER [facility] 03-16-2023 07:20-0400 Diastolic Blood Pressure Non-Invasive 57 1 PIERCE KAPPER CAR ATTENDANT-CLASSROOM TEACHER [facility] 03-16-2023 07:20-0400 Heart rate 59 /min PIERCE KAPPER CAR ATTENDANT-CL[employer]SROOM TEACHER [facility] 03-16-2023 07:20-0400 Respiratory rate 16 /min PIERCE KAPPER CAR ATTENDANT-CLASSROOM TEACHER [facility] 03-16-2023 07:20-0400 Systolic Blood Pressure Non-Invasive 108 1 PIERCE KAPPER CAR ATTENDANT-CLASSROOM TEACHER [facility] 03-15-2023 11:55-0400 Heart rate 56 /min PIERCE KAPPER CAR ATTENDANT-CL[employer]SROOM TEACHER [facility] 03-15-2023 11:21-0400 Body height 155 cm PIERCE MARS CAR ATTENDANT-CL[employer]SROOM TEACHER [facility] 03-15-2023 11:21-0400 Body weight 92 kg PIERCE JERAD CAR ATTENDANT-CLASSROOM TEACHER [facility] 03-15-2023 11:21-0400 Body weight 38.29 kg/m2 PIERCE MARS CAR ATTENDANT-CL[employer]SROOM TEACHER [facility] 03-11-2023 13:52-0400 Body temperature 97 [degF] Merced Evangelina CAR ATTENDANT.CLASSROOM TEACHER Work Phone: [facility] 03-11-2023 13:52-0400 Body weight 93.8 kg Merced Evangelina CAR ATTENDANT.CL[employer]SROOM TEACHER Work Phone: [facility] 03-11-2023 13:52-0400 Diastolic blood pressure 78 mm[Hg] Merced Evangelina CAR ATTENDANT.CL[employer]SROOM TEACHER Work Phone: [facility] 03-11-2023 13:52-0400 Heart rate 93 /min Emrced Evangelina CAR ATTENDANT.CL[employer]SROOM TEACHER Work Phone: [facility] 03-11-2023 13:52-0400 SaO2% (BldA) [Mass fraction] 97 % Merced Evangelina CAR ATTENDANT.CL[employer]SROOM TEACHER Work Phone: [facility] 03-11-2023 13:52-0400 Systolic blood pressure 138 mm[Hg] Merced Evangelina CAR ATTENDANT.CL[employer]SROOM TEACHER Work Phone: [facility] 03-09-2023 17:34-0400 Body temperature 99.19 [degF] Krislyn Aberegg PA Work Phone: [facility] 03-09-2023 17:34-0400 Body weight 94.26 kg Krislyn Aberegg PA Work Phone: [facility] 03-09-2023 17:34-0400 Diastolic blood pressure 80 mm[Hg] Krislyn Aberegg PA Work Phone: [facility] 03-09-2023 17:34-0400 Heart rate 104 /min Krislyn Aberegg PA Work Phone: [facility] 03-09-2023 17:34-0400 Respiratory rate 20 /min Krislyn Aberegg PA Work Phone: [facility] 03-09-2023 17:34-0400 SaO2% (BldA) [Mass fraction] 96 % Krislyn Aberegg PA Work Phone: [facility] 03-09-2023 17:34-0400 Systolic blood pressure 158 mm[Hg] Krislyn Aberegg PA Work Phone: [facility] 02-16-2023 08:32-0400 Body weight 95.25 kg Merced Evangelina CAR ATTENDANT.CLASSROOM TEACHER Work Phone: [facility] 02-16-2023 08:32-0400 Diastolic blood pressure 84 mm[Hg] Merced Evangelina CAR ATTENDANT.CL[employer]SROOM TEACHER Work Phone: [facility] 02-16-2023 08:32-0400 Heart rate 80 /min Merced Evangelina CAR ATTENDANT.CLASSROOM TEACHER Work Phone: [facility] 02-16-2023 08:32-0400 SaO2% (BldA) [Mass fraction] 98 % Merced Evangelina CAR ATTENDANT.CLASSROOM TEACHER Work Phone: [facility] 02-16-2023 08:32-0400 Systolic blood pressure 118 mm[Hg] Merced Evangelina CAR ATTENDANT.CLASSROOM TEACHER Work Phone: [facility] 02-10-2023 18:00-0400 Respiratory rate 18 /min [facility] 02-10-2023 16:34-0400 Heart rate 79 /min [facility] 02-10-2023 16:34-0400 SaO2% (BldA) [Mass fraction] 94 % [facility] 02-10-2023 14:35-0400 Body height 154.94 cm [facility] 02-10-2023 14:35-0400 Body mass index (BMI) [Ratio] 40.6 kg/m2 [facility] 02-10-2023 14:35-0400 Body temperature 96.3 [degF] [facility] 02-10-2023 14:35-0400 Body weight 97.4 kg [facility] 02-10-2023 14:35-0400 Diastolic blood pressure 85 mm[Hg] [facility] 02-10-2023 14:35-0400 Systolic blood pressure 146 mm[Hg] [facility] 02-09-2023 22:58-0400 Diastolic blood pressure 93 mm[Hg] [facility] 02-09-2023 22:58-0400 Heart rate 66 /min [facility] 02-09-2023 22:58-0400 Respiratory rate 18 /min [facility] 02-09-2023 22:58-0400 SaO2% (BldA) [Mass fraction] 96 % [facility] 02-09-2023 22:58-0400 Systolic blood pressure 153 mm[Hg] [facility] 02-09-2023 19:34-0400 Body temperature 97.3 [degF] [facility] 02-09-2023 19:25-0400 Body height 154.94 cm [facility] 02-09-2023 19:25-0400 Body mass index (BMI) [Ratio] 43 kg/m2 [facility] 02-09-2023 19:25-0400 Body weight 103.4 kg [facility] 01-21-2023 15:14-0400 Body temperature 98.06 [degF] JAIME BRADFORD MD [facility] 01-21-2023 15:14-0400 Body weight 97.7 kg JAIME BRADFORD MD [facility] 01-21-2023 15:14-0400 Diastolic Blood Pressure Non-Invasive 94 1 JAIME BRADFORD MD [facility] 01-21-2023 15:14-0400 Heart rate 89 /min JAIME BRADFORD MD [facility] 01-21-2023 15:14-0400 Respiratory rate 20 /min JAIME BRADFORD MD [facility] 01-21-2023 15:14-0400 Systolic Blood Pressure Non-Invasive 142 1 JAIME BRADFORD MD [facility] 01-19-2023 19:07-0400 Body temperature 98.6 [degF] Robbin Hernandez MD Work Phone: [facility] 01-19-2023 19:07-0400 Body weight 97.98 kg Robbin Hernandez MD Work Phone: [facility] 01-19-2023 19:07-0400 Diastolic blood pressure 76 mm[Hg] Robbin Hernandez MD Work Phone: [facility] 01-19-2023 19:07-0400 Heart rate 84 /min Robbin Hernandez MD Work Phone: [facility] 01-19-2023 19:07-0400 Respiratory rate 18 /min Robbin Hernandez MD Work Phone: [facility] 01-19-2023 19:07-0400 Systolic blood pressure 130 mm[Hg] Robbin Hernandez MD Work Phone: [facility] 01-15-2023 11:07-0400 Body temperature 98.6 [degF] DONNA VERAS DO [facility] 01-15-2023 11:07-0400 Body weight 90.9 kg DONNA VERAS DO [facility] 01-15-2023 11:07-0400 Diastolic Blood Pressure Non-Invasive 82 1 DONNA VERAS DO [facility] 01-15-2023 11:07-0400 Heart rate 100 /min DONNA VERAS DO [facility] 01-15-2023 11:07-0400 Respiratory rate 18 /min DONNA VREAS DO [facility] 01-15-2023 11:07-0400 Systolic Blood Pressure Non-Invasive 126 1 DONNA VERAS DO [facility] 01-07-2023 13:41-0400 Diastolic Blood Pressure Non-Invasive 86 1 ETHAN HENDERSON MD [facility] 01-07-2023 13:41-0400 Systolic Blood Pressure Non-Invasive 160 1 ETHAN HENDERSON MD [facility] 01-07-2023 13:14-0400 Body height 155 cm ETHAN HENDERSON MD [facility] 01-07-2023 13:14-0400 Body temperature 97.88 [degF] ETHAN HENDERSON MD [facility] 01-07-2023 13:14-0400 Body weight 99 kg ETHAN HENDERSON MD [facility] 01-07-2023 13:14-0400 Heart rate 110 /min ETHAN HENDERSON MD [facility] 01-07-2023 13:14-0400 Respiratory rate 16 /min ETHAN HENDERSON MD [facility] 01-07-2023 11:19-0400 Body temperature 97.81 [degF] Nasrin Athy PA-C Work Phone: [facility] 01-07-2023 11:19-0400 Body weight 98.88 kg Nasrin Athy PA-C Work Phone: [facility] 01-07-2023 11:19-0400 Diastolic blood pressure 72 mm[Hg] Nasrin Athy PA-C Work Phone: [facility] 01-07-2023 11:19-0400 Heart rate 100 /min Nasrin Athy PA-C Work Phone: [facility] 01-07-2023 11:19-0400 Respiratory rate 18 /min Nasrin Athy PA-C Work Phone: [facility] 01-07-2023 11:19-0400 SaO2% (BldA) [Mass fraction] 96 % Nasrin Athy PA-C Work Phone: [facility] 01-07-2023 11:19-0400 Systolic blood pressure 122 mm[Hg] Nasrin Athy PA-C Work Phone: [facility] 01-04-2023 13:16-0400 Diastolic Blood Pressure Non-Invasive 80 1 KAREY GILMORE MD [facility] 01-04-2023 13:16-0400 Heart rate 77 /min KAREY GILMORE MD [facility] 01-04-2023 13:16-0400 Respiratory rate 16 /min KAREY GILMORE MD [facility] 01-04-2023 13:16-0400 Systolic Blood Pressure Non-Invasive 118 1 KAREY GILMORE MD [facility] 01-04-2023 12:07-0400 Body temperature 97.88 [degF] KAREY GILMORE MD [facility] 01-04-2023 12:07-0400 Body weight 93.2 kg KAREY GILMORE MD [facility] 01-04-2023 12:07-0400 Diastolic Blood Pressure Non-Invasive 86 1 KAREY GILMORE MD [facility] 01-04-2023 12:07-0400 Heart rate 83 /min KAREY GILMORE MD [facility] 01-04-2023 12:07-0400 Respiratory rate 18 /min KAREY GILMORE MD [facility] 01-04-2023 12:07-0400 Systolic Blood Pressure Non-Invasive 123 1 KAREY GILMORE MD [facility] 12-24-2022 21:17-0400 Diastolic Blood Pressure Non-Invasive 88 1 MARCELA LOPEZ MD [facility] 12-24-2022 21:17-0400 Heart rate 108 /min MARCELA LOPEZ MD [facility] 12-24-2022 21:17-0400 Respiratory rate 20 /min MARCELA LOPEZ MD [facility] 12-24-2022 21:17-0400 Systolic Blood Pressure Non-Invasive 124 1 MARCELA LOPEZ MD [facility] 12-24-2022 19:40-0400 Body temperature 98.78 [degF] MARCELA LOPEZ MD [facility] 12-24-2022 19:40-0400 Diastolic Blood Pressure Non-Invasive 98 1 MARCELA LOPEZ MD [facility] 12-24-2022 19:40-0400 Heart rate 122 /min MARCELA LOPEZ MD [facility] 12-24-2022 19:40-0400 Respiratory rate 20 /min MARCELA LOPEZ MD [facility] 12-24-2022 19:40-0400 Systolic Blood Pressure Non-Invasive 136 1 MARCELA LOPEZ MD [facility] 11-18-2022 13:00-0500 Diastolic blood pressure 78 mm[Hg] [facility] 11-18-2022 13:00-0500 Heart rate 62 /min [facility] 11-18-2022 13:00-0500 Respiratory rate 16 /min [facility] 11-18-2022 13:00-0500 SaO2% (BldA) [Mass fraction] 99 % [facility] 11-18-2022 13:00-0500 Systolic blood pressure 104 mm[Hg] [facility] 11-18-2022 09:50-0500 Body height 154.94 cm [facility] 11-18-2022 09:50-0500 Body mass index (BMI) [Ratio] 39.9 kg/m2 [facility] 11-18-2022 09:50-0500 Body temperature 97.7 [degF] [facility] 11-18-2022 09:50-0500 Body weight 95.7 kg [facility] 10-13-2022 16:26-0500 Body height 155 cm KUN ELLIS MD [facility] 10-13-2022 16:26-0500 Body temperature 97.7 [degF] [facility]LLIS [facility] [facility] 10[facility]13[facility]2022 16:26-0500 Body weight 96.8 kg KUN ELLIS MD [facility] 10-13-2022 16:26-0500 Diastolic Blood Pressure Non-Invasive 50 1 KUN ELLIS MD [facility] 10-13-2022 16:26-0500 Heart rate 94 /min KUN ELLIS MD [facility] 10-13-2022 16:26-0500 Respiratory rate 20 /min KUN ELLIS MD [facility] 10-13-2022 16:26-0500 Systolic Blood Pressure Non-Invasive 136 1 KUN ELLIS MD [facility] 10-12-2022 10:04-0500 Body temperature 98.06 [degF] ANNE BURROWS MD [facility] 10-12-2022 10:04-0500 Diastolic Blood Pressure Non-Invasive 77 1 ANNE BURROWS MD [facility] 10-12-2022 10:04-0500 Heart rate 88 /min ANNE BURROWS MD [facility] 10-12-2022 10:04-0500 Respiratory rate 18 /min ANNE BURROWS MD [facility] 10-12-2022 10:04-0500 Systolic Blood Pressure Non-Invasive 133 1 ANNE BURROWS MD [facility] 09-08-2022 11:24-0500 Body temperature 97.3 [degF] Holly Fraga CAR ATTENDANT.CLASSROOM TEACHER Work Phone: [facility] 09-08-2022 11:24-0500 Body weight 100.7 kg Holly Fraga CAR ATTENDANT.CLASSROOM TEACHER Work Phone: [facility] 09-08-2022 11:24-0500 Diastolic blood pressure 76 mm[Hg] Holly Fraga CAR ATTENDANT.CLASSROOM TEACHER Work Phone: [facility] 09-08-2022 11:24-0500 Heart rate 80 /min Holly Fraga CAR ATTENDANT.CLASSROOM TEACHER Work Phone: [facility] 09-08-2022 11:24-0500 Respiratory rate 21 /min Holly Fraga CAR ATTENDANT.CLASSROOM TEACHER Work Phone: [facility] 09-08-2022 11:24-0500 SaO2% (BldA) [Mass fraction] 99 % Holly Fraga CAR ATTENDANT.CLASSROOM TEACHER Work Phone: [facility] 09-08-2022 11:24-0500 Systolic blood pressure 128 mm[Hg] Holly Valeriy DWYER Work Phone: [facility] 09-07-2022 03:59-0500 Diastolic blood pressure 62 mm[Hg] [facility] 09-07-2022 03:59-0500 Heart rate 67 /min [facility] 09-07-2022 03:59-0500 Respiratory rate 12 /min [facility] 09-07-2022 03:59-0500 SaO2% (BldA) [Mass fraction] 97 % [facility] 09-07-2022 03:59-0500 Systolic blood pressure 106 mm[Hg] [facility] 09-07-2022 01:50-0500 Body height 154.94 cm [facility] Work Phone: 09-07-2022 01:50-0500 Body mass index (BMI) [Ratio] 45.8 kg/m2 [facility] 09-07-2022 01:50-0500 Body temperature 96.2 [degF] [facility] 09-07-2022 01:50-0500 Body weight 110 kg [facility] 07-29-2022 14:19-0500 Respiratory rate 18 /min [facility] 07-29-2022 14:19-0500 SaO2% (BldA) [Mass fraction] 95 % [facility] 07-29-2022 14:18-0500 Heart rate 80 /min [facility] 07-29-2022 13:13-0500 Body temperature 99.6 [degF] [facility] 07-29-2022 13:13-0500 Diastolic blood pressure 68 mm[Hg] [facility] 07-29-2022 13:13-0500 Systolic blood pressure 140 mm[Hg] [facility] 07-29-2022 13:11-0500 Body height 154.94 cm [facility] Work Phone: 07-29-2022 13:11-0500 Body mass index (BMI) [Ratio] 38.8 kg/m2 [facility] 07-29-2022 13:11-0500 Body weight 93.3 kg [facility] 07-18-2022 18:14-0400 Body temperature 98.29 [degF] Nasrin Athy PA-C Work Phone: [facility] 07-18-2022 18:14-0400 Body weight 95.25 kg Nasrin Athy PA-C Work Phone: [facility] 07-18-2022 18:14-0400 Diastolic blood pressure 80 mm[Hg] Nasrin Athy PA-C Work Phone: [facility] 07-18-2022 18:14-0400 Heart rate 74 /min Nasrin Athy PA-C Work Phone: [facility] 07-18-2022 18:14-0400 Respiratory rate 18 /min Nasrin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 Comment on above: Patient Request Start: 03-31-2024 End: 03-31-2024 Office outpatient visit 25 minutes Marcelino Bess CAR ATTENDANT.CLASSROOM TEACHER Work Phone: [facility] Comment on above: Sinobronchitis (Prim bryant Dx) Start: 03-18-2024 ambulatory [facility] Facility [facility] Start: 03-17-2024 End: 03-17-2024 Emergency department patient visit ESTRELLITA REINOSO [facility] Start: 03-12-2024 End: 03-12-2024 Emergency department patient visit HIRA CASSIDY [facility] Start: 03-11-2024 End: 03-11-2024 Patient encounter procedure Yumiko WARE Work Phone: [facility] Comment on above: Pain, dental (Primar y Dx); Acute otitis externa of right ear, unspecified type Start: 03-05-2024 End: 03-05-2024 Emergency department patient visit Silverio Haley Facility:[facility] Start: 02-28-2024 End: 02-29-2024 Emergency department patient visit ALICE DIEHL [facility] Start: 02-24-2024 End: 02-24-2024 Emergency department patient visit Silverio Haley Facility:[facility] Start: 02-23-2024 ambulatory Silverio D Rodrigoampcarlos Facilit y:[facility] Start: 02-23-2024 End: 02-23-2024 ambulatory Silverio D Rodrigoampas Facility:[facility] Start: 02-22-2024 ambulatory [place] Facility :[facility] Start: 02-18-2024 End: 02-18-2024 Emergency department patient visit ISABEL ARIAS [facility] Start: 02-17-2024 ambulatory Silverio liriano MD Work Phone: Internal Medicine [place] [address] Start: 02-17-2024 End: 02-17-2024 Emergency department patient visit Silverio Haley Facility:[facility] Start: 02-04-2024 End: 02-04-2024 Emergency department patient visit ETHAN HENDERSON MD Facility:[facility] Start: 02-04-2024 End: 02-04-2024 Emergency department patient visit ETHAN HENDERSON MD [facility] Start: 02-02-2024 ambulatory Era Ayala Facility :[facility] Start: 01-31-2024 End: 01-31-2024 Emergency department patient visit MERCED HUTCHINSON CAR ATTENDANT-CLASSROOM TEACHER Facility:[facility] Start: 01-30-2024 End: 01-31-2024 Emergency department patient visit ETHAN HENDERSON MD [facility] Start: 01-22-2024 End: 01-22-2024 ambulatory [facility] [place] Facility:[facility] Start: 01-19-2024 E-mail encounter fro m caregiver Gretchen Newton APRN.ORE WASHER Work Phone: [facility] [place] Start: 01-19-2024 Follow-up encounter Gretchenjustyna arteaga CAR ATTENDANT.ORE WASHER Work Phone: [facility] [place] Comment on above: Follow-up Start: 01-19-2024 End: 01-19-2024 ambulatory Gretchen Newton APRN.ORE WASHER Work Phone: [facility] [place] Comment on above: Urinary tract infect ion without hematuria, site unspecified (Primary Dx); Pruritus; Rash and nonspecific skin eruption Start: 01-19-2024 End: 01-19-2024 Telemedicine consultation with patient Gretchen Newton APRN.ORE WASHER Work Phone: [facility] [place] Start: 01-18-2024 Telephone encounter Gretchen Adancharis arteaga CAR ATTENDANT.ORE WASHER Work Phone: [facility] [place] Comment on above: Future Appointment Start: 01-16-2024 End: 01-16-2024 Emergency department patient visit Dr. Silverio Haley Work Phone: [facility] Work Phone: Start: 01-15-2024 End: 01-15-[address] Silverio Haley Work Phone: [facility] Work Phone: Start: 01-15-2024 End: 01-15-[address] Silverio Haley Work Phone: [facility] Work Phone: Start: 01-15-2024 End: 01-15-[address] Silverio Haley Work Phone: [facility] Work Phone: Start: 01-15-2024 End: 01-15-2024 ambulatory Silverio Haley Facility:[facility] Start: 01-15-2024 End: 01-15-2024 ambulatory [place] Facility:[facility] Start: 01-01-2024 End: 01-01-2024 Office outpatient visit 25 minutes Silverio Haley MD Work Phone: [facility] [place] Comment on above: Chronic pancreatitis , unspecified pancreatitis type (HCC) (Primary Dx); Abdominal pain, unspecified abdominal location; Nausea and vomiting, unspecified vomiting type Start: 12-29-2023 Orders Only Silverio liriano MD Work Phone: [facility] [place] Start: 12-26-2023 End: 12-26-2023 Emergency department patient visit Dr. Silverio Haley Work Phone: [facility] Work Phone: Start: 12-24-2023 End: 12-24-2023 Emergency department patient visit Dr. Silverio Haley Work Phone: [facility] Work Phone: Start: 12-21-2023 Telephone encounter Silverio patel MD Work Phone: [facility] [place] Comment on above: Results Start: 12-18-2023 End: 12-18-[address] Silverio Haley Work Phone: [facility] Work Phone: Start: 12-18-2023 End: 12-18-[address] Silverio Haley Work Phone: [facility]-N[facility] Medicine, [facility] Work Phone: Start: 12-18-2023 End: 12-18-2023 ambulatory Merced Hutchinson Facility:[facility] Start: 12-16-2023 End: 12-16-2023 Subsequent hospital visit by physician Xr [facility] Work Phone: Radiology Comment on above: Acute cough [R05.1] Start: 12-16-2023 End: 12-16-2023 Patient encounter procedure Holly Fraga CAR ATTENDANT.CLASSROOM TEACHER Work Phone: [facility] Comment on above: Acute cough (Primary Dx); URI, acute Start: 12-15-2023 Telephone encounter Merced Cleav er CAR ATTENDANT.CLASSROOM TEACHER Work Phone: [facility] [place] Comment on above: Orders Start: 12-14-2023 Telephone encounter Merced Cleav er CAR ATTENDANT.CLASSROOM TEACHER Work Phone: [facility] [place] Comment on above: Work Excuse Start: 12-14-2023 End: 12-14-2023 ambulatory Merced Beasleyr CAR ATTENDANT.CLASSROOM TEACHER Work Phone: [facility] [place] Comment on above: Intractable nausea a nd vomiting (Primary Dx); Nausea; Abdominal pain, unspecified abdominal location Start: 12-14-2023 End: 12-14-2023 Telemedicine consultation with patient Merced Hutchinson CAR ATTENDANT.CLASSROOM TEACHER Work Phone: [facility] Start: 12-09-2023 End: 12-09-2023 Emergency department patient [facility] Start: 12-04-2023 Non-patient / Non-visit Dr. Genna Haley Work Phone: [facility] Start: 12-03-2023 End: 12-04-2023 [facility] Start: 12-03-2023 Telephone encounter Silverio patel MD Work Phone: [facility] [place] Comment on above: Patient Update Start: 10-25-2023 End: 10-25-2023 [facility] Start: 10-25-2023 ambulatory Joana Maldonado RN NURSE CONFIGURATION MANAGER Comment on above: Information Start: 10-24-2023 End: 10-24-2023 [facility] Start: 10-23-2023 Telephone encounter Silverio patel MD Work Phone: [facility] [place] Comment on above: Patient Update Start: 10-09-2023 End: 10-09-2023 Subsequent hospital visit by physician Xr [facility] Work Phone: Radiology Comment on above: Acute cough [R05.1] Start: 09-20-2023 End: 09-20-2023 [facility] Start: 09-10-2023 End: 09-10-2023 Subsequent hospital visit by physician Xr [facility] Work Phone: Radiology Comment on above: Acute cough [R05.1] Start: 08-18-2023 End: 08-18-2023 Subsequent hospital visit by physician Xr [facility] Work Phone: Radiology Comment on above: Hand injury, right, initial encounter [S69.91XA] Start: 08-18-2023 End: 08-18-2023 Patient encounter procedure Milly Henderson APRN.CLASSROOM TEACHER Work Phone: [facility] Comment on above: Hand injury, right, initial encounter (Primary Dx); Contusion of right thumb without damage to nail, initial encounter Start: 08-18-2023 Telephone encounter Milly Hoff APRN.CLASSROOM TEACHER Work Phone: [facility] Comment on above: Results Start: 08-12-2023 End: 08-12-2023 Patient encounter procedure Milly Henderson APRN.CLASSROOM TEACHER Work Phone: [facility] Comment on above: Viral URI with cough (Primary Dx) Start: 07-22-2023 End: 07-22-2023 [facility] Start: 06-11-2023 End: 06-11-2023 [facility] Start: 06-06-2023 End: 06-06-2023 [facility] Start: 06-03-2023 [facility] Story MD [facility] Start: 05-25-2023 Telephone encounter Megan PERRY [facility] Clinical Communication Comment on above: Appointment Start: 05-20-2023 End: 05-20-2023 Patient encounter procedure Merced Evangelina CAR ATTENDANT.CLASSROOM TEACHER Work Phone: [facility] [place] Comment on above: APPOINTMENT CANCELLE D (Primary Dx) Start: 05-20-2023 End: 05-20-2023 Telemedicine consultation with patient Merced Evangelina CAR ATTENDANT.CLASSROOM TEACHER Work Phone: [facility] Start: 05-20-2023 E-mail encounter fro m caregiver Merced Evangelina CAR ATTENDANT.CLASSROOM TEACHER Work Phone: [facility] Start: 05-20-2023 Follow-up encounter Merced Cleav er CAR ATTENDANT.CLASSROOM TEACHER Work Phone: [facility] [place] Comment on above: Follow up Start: 05-15-2023 Telephone encounter Silverio patel MD Work Phone: [facility] [place] Comment on above: Patient Update; Medi cation Request Start: 05-12-2023 Telephone encounter Merced Cleav er CAR ATTENDANT.CLASSROOM TEACHER Work Phone: [facility] [place] Comment on above: Patient Question Start: 05-04-2023 End: 05-04-2023 [facility] Start: 05-04-2023 Karen Story MD [facility] Start: 04-22-2023 End: 04-22-2023 ambulatory Merced Evangelina CAR ATTENDANT.CLASSROOM TEACHER Work Phone: [facility] [place] Comment on above: Calculus of kidney ( Primary Dx); Nausea; Abdominal pain, unspecified abdominal location; Acute pancreatitis without infection or necrosis, unspecified pancreatitis type Start: 04-22-2023 End: 04-22-2023 Telemedicine consultation with patient Merced Evangelina CAR ATTENDANT.CLASSROOM TEACHER Work Phone: [facility] Start: 04-16-2023 End: 04-16-2023 Emergency department patient visit [facility] Work Phone: Start: 04-16-2023 ambulatory Faina Pcp ASHLYN Roy Start: 04-01-2023 End: 04-01-2023 Emergency department patient visit [facility] Work Phone: Start: 04-01-2023 Telephone encounter Silverio patel MD Work Phone: [facility] [place] Comment on above: Results Start: 03-31-2023 Telephone encounter Megan Cardozo Clinical Communication Comment on above: Appointment Start: 03-30-2023 End: 03-30-2023 Patient encounter procedure Merced Hutchinson CAR ATTENDANT.CLASSROOM TEACHER Work Phone: [facility] [place] Comment on above: Acute pancreatitis w ithout infection or necrosis, unspecified pancreatitis type (Primary Dx); Chronic pancreatitis, unspecified pancreatitis type (HCC); Intractable nausea and vomiting; Right sided abdominal pain; Encounter for therapeutic drug monitoring Start: 03-25-2023 Telephone encounter Silverio patel MD Work Phone: [facility] [place] Comment on above: Patient Update Start: 03-18-2023 ambulatory Silverio liriano MD Work Phone: [facility] [place] Comment on above: Abdominal Pain Start: 03-15-2023 End: 03-16-2023 ambulatory PIERCE MARS CAR ATTENDANT-CLASSROOM TEACHER Facility:[facility] Start: 03-15-2023 End: 03-16-2023 Observation PIERCE MARS APRN-CLASSROOM TEACHER [facility] Start: 03-12-2023 ambulatory Merced Hutchinson CAR ATTENDANT.CLASSROOM TEACHER Work Phone: [facility] [place] Comment on above: Question regarding C OMP METABOLIC PANEL Start: 03-11-2023 End: 03-11-2023 Patient encounter procedure Merced Hutchinson CAR ATTENDANT.CLASSROOM TEACHER Work Phone: [facility] [place] Comment on above: Acute pancreatitis w ithout infection or necrosis, unspecified pancreatitis type (Primary Dx); Low sodium levels; Migraine without aura and without status migrainosus, not intractable; Acute cough Start: 03-09-2023 End: 03-09-2023 Subsequent hospital visit by physician [facility] [place] Work Phone: Radiology Comment on above: Acute cough [R05.1] Start: 03-09-2023 End: 03-09-2023 Patient encounter procedure Yumiko WARE Work Phone: [facility] Comment on above: Acute cough (Primary Dx); Sinobronchitis Start: 02-20-2023 End: 02-28-2023 Evaluation and management of inpatient MERCED HUTCHINSON APRN-CLASSROOM TEACHER Facility:[facility] Start: 02-17-2023 End: 02-17-2023 ambulatory Mala Almendarez MD Work Phone: [facility] Comment on above: Liver cyst (Primary Dx) Results Start: 02-17-2023 E-mail encounter fro m caregiver Merced Hutchinson APRN.CLASSROOM TEACHER Work Phone: [facility] Start: 02-17-2023 End: 02-17-2023 Telemedicine consultation with patient Mala Almendarez MD Work Phone: [facility] Start: 02-16-2023 End: 02-16-2023 Patient encounter procedure Merced Hutchinson APRN.CLASSROOM TEACHER Work Phone: [facility] [place] Comment on above: Syncope, unspecified syncope type (Primary Dx); Vertigo; Open wound; Vitamin D deficiency; Vitamin B12 deficiency; Hyperlipidemia, unspecified hyperlipidemia type; Adjustment insomnia; Migraine without aura and without status migrainosus, not intractable; Obesity, Class II, BMI 35-39.9; Screening for HIV (human immunodeficiency virus); Special screening examination for viral disease; Encounter for therapeutic drug monitoring Start: 02-10-2023 End: 02-10-2023 Emergency department patient visit [facility] Start: 02-09-2023 End: 02-09-2023 Emergency department patient visit [facility] Start: 01-21-2023 End: 01-21-2023 Emergency department patient visit JAIME BRADFORD MD [facility] Start: 01-20-2023 Telephone encounter Silverio patel MD Work Phone: [facility] [place] Comment on above: Patient Update; Melyssa ent Question Start: 01-19-2023 End: 01-19-2023 Patient encounter procedure Robbin Hernandez MD Work Phone: [facility] [place] Comment on above: Open wound of left b reast, subsequent encounter (Primary Dx) Start: 01-15-2023 Telephone encounter Silverio patel MD Work Phone: [facility] [place] Comment on above: cancellation of futu re apt Start: 01-15-2023 End: 01-15-2023 Emergency department patient visit DONNA VERAS DO [facility] Start: 01-14-2023 Documentation procedure Mammog kavon Coordinator [facility] Start: 01-14-2023 Letter encounter Mammography Coordinator [facility] Department Start: 01-14-2023 Telephone encounter Isabel wells PA-C Work Phone: [facility] [place] Comment on above: Results Start: 01-07-2023 End: 01-07-2023 Emergency department patient visit ETHAN HENDERSON MD [facility] Start: 01-07-2023 End: 01-07-2023 Patient encounter procedure Nasrin Dunlap PA-C Work Phone: [facility] Comment on above: Breast infection (Pr imary Dx) Start: 01-04-2023 End: 01-04-2023 Emergency department patient visit KAREY GILMORE MD [facility] Start: 12-26-2022 Telephone encounter No Pcp Int [facility] [place] Comment on above: Possible bronchitis Medication Problem Start: 12-24-2022 End: 12-24-2022 Emergency department patient visit MARCELA LOPEZ MD [facility] Start: 11-18-2022 End: 11-18-2022 [facility] Start: 10-22-2022 End: 10-22-2022 ambulatory Nojuan Akers CAR ATTENDANT.CLASSROOM TEACHER Work Phone: [facility] Comment on above: Cough, unspecified t ype (Primary Dx) Start: 10-22-2022 End: 10-22-2022 Telemedicine consultation with patient No Akers CAR ATTENDANT.CLASSROOM TEACHER Work Phone: [facility] Start: 10-13-2022 End: 10-13-2022 Emergency department patient visit KUN ELLIS MD [facility] Start: 10-12-2022 End: 10-12-2022 Emergency department patient visit ANNE BURROWS MD [facility] Start: 09-15-2022 Telephone encounter Isabel wells PA-C Work Phone: [facility] Comment on above: [employer] Start: 09-09-2022 Telephone encounter No Pcp [facility] Comment on above: Patient Update; Melyssa ent Request Start: 09-08-2022 End: 09-08-2022 Patient encounter procedure Holly Fraga CAR ATTENDANT.CLASSROOM TEACHER Work Phone: [facility] Comment on above: Pain, dental (Primar y Dx) Start: 09-07-2022 End: 09-07-2022 [facility] Start: 08-14-2022 Refill Taylor barry CAR ATTENDANT.CLASSROOM TEACHER Work Phone: Neurology Comment on above: Refill Request Start: 08-12-2022 Telephone encounter Marcelino Albert MD Work Phone: [facility] Comment on above: Patient Update Start: 08-05-2022 Telephone encounter No scruggs CAR ATTENDANT.CLASSROOM TEACHER Work Phone: [facility] [place] Comment on above: Medication Question Start: 08-04-2022 End: 08-04-2022 ambulatory No Akers APRN.CLASSROOM TEACHER Work Phone: [facility] [place] Comment on above: Acute cough (Primary Dx) Start: 08-04-2022 End: 08-04-2022 Telemedicine consultation with patient No Akers APRN.CLASSROOM TEACHER Work Phone: [facility] Start: 07-29-2022 Telephone encounter Marcelino Albert MD Work Phone: [facility] [place] Comment on above: cough perisiting/tig htness in chest Start: 07-29-2022 End: 07-29-2022 Emergency department patient visit [facility] Start: 07-22-2022 End: 07-22-2022 ambulatory No Akers APRN.CLASSROOM TEACHER Work Phone: [facility] [place] Comment on above: Upper respiratory in fection with cough and congestion (Primary Dx); Acute cough Start: 07-22-2022 End: 07-22-2022 Telemedicine consultation with patient No Akers APRN.CLASSROOM TEACHER Work Phone: [facility] Start: 07-18-2022 End: 07-18-2022 Patient encounter procedure Nasrin Dunlap PA-C Work Phone: [facility] Comment on above: Sinobronchitis (Prim bryant Dx) Start: 06-30-2022 Telephone encounter Isabel LAIC Work Phone: [facility] [place] Comment on above: Results (Vit D resul ts) Start: 06-27-2022 Telephone encounter Isabel LAIC Work Phone: [facility] [place] Comment on above: Results Start: 06-26-2022 End: 06-26-2022 Patient encounter procedure Isabel Arias PA-C Work Phone: [facility] [place] Comment on above: Fatigue, unspecified type (Primary Dx); Former smoker; Reactive depression; Generalized anxiety disorder; Impaired fasting glucose; Encounter for screening for cardiovascular disorders Start: 06-18-2022 Telephone encounter Isabel wells PA-C Work Phone: [facility] Comment on above: Opened In Error Start: 06-05-2022 ambulatory Francisco Herrera RN NURSE CONFIGURATION MANAGER Comment on above: Covid19 Concern; Inf ormation Start: 05-27-2022 End: 05-27-2022 ambulatory No Akers CAR ATTENDANT.CLASSROOM TEACHER Work Phone: [facility] Comment on above: Subacute cough (Prim bryant Dx) Start: 05-27-2022 End: 05-27-2022 Telemedicine consultation with patient No Akers CAR ATTENDANT.CLASSROOM TEACHER Work Phone: [facility] Start: 05-13-2022 End: 05-13-2022 ambulatory No Akers CAR ATTENDANT.CLASSROOM TEACHER Work Phone: [facility] Comment on above: COVID-19 (Primary Dx ) Start: 05-13-2022 End: 05-13-2022 Telemedicine consultation with patient No Akers APRN.CLASSROOM TEACHER Work Phone: [facility] Start: 05-13-2022 Telephone encounter Marcelino Albert MD Work Phone: [facility] Comment on above: Appointment Start: 05-12-2022 End: 05-12-2022 Subsequent hospital visit by physician [facility] Work Phone: Radiology Comment on above: Acute cough [R05.1] Start: 05-12-2022 End: 05-12-2022 Patient encounter procedure Marcelino 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 Work Phone: [facility] Comment on above: Acute cough (Primary Dx) Start: 05-06-2022 Patient Outreach Jigar laguerre LPN Family [facility] [place] Comment on above: Transition Of Care ( 05/02/22) Start: 05-05-2022 Telephone encounter Isabel wells PA-C Work Phone: [facility] [place] Comment on above: Hospital F/U Start: 04-10-2022 End: 04-10-2022 Emergency department patient visit [facility] Start: 04-09-2022 ambulatory Marcelino be MD Work Phone: [facility] [place] Start: 02-06-2022 End: 02-06-2022 Emergency department patient visit ANH BAUER MD [facility] Start: 01-27-2022 ambulatory Taylor barry APRN.CLASSROOM TEACHER Work Phone: Neurology Comment on above: Medicine Start: 12-24-2021 End: 12-24-2021 ambulatory Isabel Arias PA-C Work Phone: [facility] [place] Comment on above: Generalized abdomina l pain (Primary Dx) Start: 12-24-2021 End: 12-24-2021 Telemedicine consultation with patient Isabel Arias PA-C Work Phone: [facility] Start: 11-22-2021 End: 11-22-2021 Discharged Recurring [facility] Start: 10-04-2021 End: 10-04-2021 Emergency department patient visit [facility] Start: 09-15-2021 End: 09-15-2021 Emergency department patient visit [facility] Start: 09-13-2021 End: 09-13-2021 Emergency department patient visit ANNE BURROWS MD [facility] Start: 08-16-2021 End: 08-16-2021 Emergency department patient visit ANNE BURROWS MD [facility] Start: 07-29-2021 End: 07-29-2021 Subsequent hospital visit by physician Sejal [facility] Work Phone: Radiology Comment on above: LRTI (lower respirat ory tract infection) [J22] Start: 06-26-2021 Orders Only Sarah Morrison MD Work Phone: [facility] Comment on above: Arthralgia, unspecif ied joint (Primary Dx); Bilateral chronic knee pain Start: 06-25-2021 End: 06-25-2021 ambulatory PHYSICIAN NO [facility] Start: 11-19-2020 End: 11-19-2020 Subsequent hospital visit by physician [facility] Work Phone: Radiology Comment on above: Elevated alkaline ph osphatase level [R74.8] Acute pain of right knee [M25.561] Start: 10-07-2019 End: 10-09-2019 Evaluation and management of inpatient Delon Palacios MD Work Phone: [facility] Comment on above: S/P laparotomy (Prim bryant Dx) Start: 09-30-2019 End: 09-30-2019 Subsequent hospital visit by physician Delon Palacios MD Work Phone: [facility] Comment on above: Arrived Start: 09-15-2019 End: 09-15-2019 Subsequent hospital visit by physician Delon Palacios MD Work Phone: [facility] [address] Comment on above: Pelvic pain in femal e; Pelvic mass in female Start: 09-11-2019 End: 09-11-2019 Emergency department patient visit Eddieshantel Johnson Work Phone: [facility] Emergency Dept Comment on above: Adnexal mass (Primar y Dx) Start: 09-03-2019 End: 09-05-2019 Evaluation and management of inpatient Raghu Rivers MD Work Phone: [facility] Comment on above: Pelvic pain in femal e (Primary Dx) Start: 03-31-2016 Patient encounter status Bradley Arias PA-C Work Phone: [facility] Work Phone: Start: 05-17-2008 End: 02-16-2023 Patient encounter status Silverio Haley MD Work Phone: [facility] Procedures Date Procedure Procedure Detail Performing Clinician Start: 02-24-2025 End: 02-24-2025 Comprehensive metabolic panel Mac Bowden nayely CAR ATTENDANT - CLASSROOM TEACHER Work Phone: Start: 02-24-2025 Bacterial vaginosis and vaginitis rRNA panel - Vaginal fluid by Probe Mac Meaghan CAR ATTENDANT - CLASSROOM TEACHER Work Phone: Start: 02-24-2025 Iadna chlamydia trachomatis amplified probe tq Mac Bowdenner CAR ATTENDANT - CLASSROOM TEACHER Work Phone: Start: 02-14-2025 Urinalysis NIKHIL PENA Comment on above: Result Comment: URINALYSIS Performed By: #### 2 [id number] ####[facility],[address] [place] [address] Start: 02-14-2025 Urnls dip stick/tablet rgnt auto w/o microscopy Merced Hutchinson CAR ATTENDANT.CLASSROOM TEACHER Work Phone: Start: 01-19-2025 Urinalysis NIKHIL PENA Comment on above: Result Comment: URINALYSIS Performed By: #### 2 [id number] ####[facility],[address] [place] [address] Start: 12-29-2024 Follow-up visit Follow-up SUNNY STORY Start: 12-17-2024 Ct abdomen & pelvis w/o contrast material Emiliano White MD Work Phone: Start: 12-17-2024 Comprehensive metabolic panel Emiliano White MD Work Phone: Start: 12-17-2024 Bacterial vaginosis and vaginitis rRNA panel - Vaginal fluid by Probe Emiliano White MD Work Phone: Start: 12-17-2024 Urinalysis complete panel - Urine Chirag White MD Work Phone: Start: 12-17-2024 Urnls dip stick/tablet reagent auto microscopy Emiliano White MD Work Phone: Start: 12-15-2024 Comprehensive metabolic panel Fan bills DO Work Phone: Start: 12-15-2024 Urinalysis complete panel - Urine Fan Sonya Nesheim DO Work Phone: Start: 12-15-2024 Urnls dip stick/tablet reagent auto microscopy Fan G Nesheim DO Work Phone: Start: 12-12-2024 Us transvaginal Fay Oplinger PA-C Work Phone: Start: 12-12-2024 Ct abdomen & pelvis w/o contrast material Fay Oplinger PA-C Work Phone: Start: 12-12-2024 Comprehensive metabolic panel Fay Op linger PA-C Work Phone: Start: 12-12-2024 Urinalysis complete panel - Urine Madiso n Oplinger PA-C Work Phone: Start: 12-12-2024 Urnls dip stick/tablet rgnt auto w/o microscopy Fay Oplinger PA-C Work Phone: Start: 11-15-2024 Urinalysis NIKHIL PENA Comment on above: Result Comment: URINALYSIS Performed By: #### 2 [id number] ####[place] [address] Start: 11-08-2024 Urinalysis NIKHIL PENA Comment on above: Result Comment: URINALYSIS Performed By: #### 2 [id number] ####[facility],[address] [place] [address] Start: 11-04-2024 STREP A MOLECULAR (POC) Marcelino guzman CAR ATTENDANT.CLASSROOM TEACHER Work Phone: Start: 10-13-2024 STREP A MOLECULAR (POC) Marie Santamaria CAR ATTENDANT.CLASSROOM TEACHER Work Phone: Start: 10-04-2024 Computed tomography of abdomen and pelvis with intravenous contrast Dr. Silverio Haley MD Work Phone: Start: 10-04-2024 SARS-CoV-2, Influenza & RSV (PCR) Dr. Genna Haley MD Work Phone: Start: 09-14-2024 Urinalysis NIKHIL PENA Comment on above: Result Comment: URINALYSIS Performed By: #### 2 [id number] ####[facility],[address] [place] [address] Start: 08-21-2024 X-ray of lumbar spine, two or three views Dr. Silverio Haley MD Work Phone: Start: 07-28-2024 Radiologic exam chest 2 views Jonathan Bruce APRN.CNP Work Phone: Start: 07-15-2024 Urinalysis NIKHIL PENA Comment on above: Result Comment: URINALYSIS Performed By: #### 2 [id number] ####[place] [address] Start: 07-02-2024 Urinalysis NIKHIL PENA Comment on above: Result Comment: URINALYSIS Performed By: #### 2 [id number] ####[place] [address] Start: 06-09-2024 Urinalysis NIKHIL PENA Comment on above: Result Comment: URINALYSIS Performed By: #### 2 [id number] ####[place] [address] Start: 06-02-2024 Urinalysis NIKHIL PENA Comment on above: Result Comment: URINALYSIS Performed By: #### 2 [id number] ####[place] [address] Start: 05-16-2024 Urinalysis NIKHIL PENA Comment on above: Result Comment: URINALYSIS Performed By: #### 2 [id number] ####[place] [address] Start: 05-14-2024 Urinalysis NIKHIL PENA Comment on above: Result Comment: URINALYSIS Performed By: #### 2 [id number] ####[facility],[address] [place] [address] Start: 05-01-2024 Urinalysis NIKHIL PENA Comment on above: Result Comment: URINALYSIS Performed By: #### 2 [id number] ####[facility],[address] [place] [address] Start: 03-17-2024 Urinalysis NIKHIL PENA Comment on above: Result Comment: URINALYSIS Performed By: #### 2 [id number] ####[facility],[address] [place] [address] Start: 03-12-2024 Urinalysis NIKHIL PENA Comment on above: Result Comment: URINALYSIS Performed By: #### 2 [id number] ####[facility],[address] [place] [address] Start: 02-28-2024 Urinalysis NIKHIL PENA Comment on above: Result Comment: URINALYSIS Performed By: #### 2 [id number] ####[facility],[address] [place] [address] Start: 02-18-2024 Urinalysis NIKHIL PENA Comment on above: Result Comment: URINALYSIS Performed By: #### 2 [id number] ####[facility],[address] [place] [address] Start: 01-16-[address] Silverio Haley Work Phone: Start: 01-15-[address] Silverio Haley Work Phone: Start: 12-26-2023 CT of abdomen and pelvis without contrast Dr. Silverio Haley Work Phone: Start: 12-18-2023 [address] gastric emptying study Dr. Silverio Haley Work Phone: Start: 12-16-2023 Radiologic exam chest 2 views Holly mcpherson CAR ATTENDANT.CLASSROOM TEACHER Work Phone: Start: 12-16-2023 STREP A MOLECULAR (POC) [facility] Provider Start: 12-04-[address] Silverio Haley Work Phone: Start: 10-24-2023 Radiologic examination of knee Start: 10-09-2023 Radiologic exam chest 2 views Silverio patel MD Work Phone: Start: 09-10-2023 Radiologic exam chest 2 views Marie pederson CAR ATTENDANT.CLASSROOM TEACHER Work Phone: Start: 08-18-2023 Radex hand minimum 3 views Milly Henderson CAR ATTENDANT.CLASSROOM TEACHER Work Phone: Start: 07-22-2023 Plain chest X-ray Start: 07-22-2023 CT cervical spine without contrast Start: 07-22-2023 CT of head without contrast Start: 07-22-2023 SARS-CoV-2 & FLU Antigen (Rapid) Start: 07-22-2023 Viral antigen assay Start: 06-11-2023 Plain chest X-ray Start: 04-01-2023 CT of abdomen and pelvis without contrast Start: 03-09-2023 Radiologic exam chest 2 views Yumiko Dailey PA Work Phone: Start: 02-16-2023 Lipid 1995 panel - Serum or Plasma Silverio Haley MD Work Phone: Start: 02-09-2023 Plain x-ray of elbow Start: 02-09-2023 Plain X-ray of shoulder Start: 02-09-2023 Plain x-ray of wrist Start: 02-09-2023 Radiography of ankle Start: 02-09-2023 CT cervical spine without contrast Start: 02-09-2023 CT of head without contrast Start: 01-14-2023 Ivon Arias PA-C Work Phone: Start: 11-18-2022 CT of abdomen and pelvis without contrast Start: 09-07-2022 CT of head without contrast Start: 07-29-2022 Plain chest X-ray Start: 06-26-2022 Lipid 1996 panel - Serum or Plasma Ariella Kent RN Start: 05-12-2022 Radiologic exam chest 2 views Marcelino garcía CAR ATTENDANT.CLASSROOM TEACHER Work Phone: Start: 04-10-2022 CT of abdomen and pelvis without contrast Start: 10-04-2021 Plain chest X-ray Start: 10-04-2021 SARS-CoV-2 Antigen (Rapid) Start: 07-29-2021 Radiologic exam chest 2 views [place] Dennis waldrop [employer]ex Work Phone: Start: 11-19-2020 Radiologic examination femur minimum 2 views Isabel Arias PA-C Work Phone: Start: 05-08-2020 Colonoscopy Isabel Arias PA-C Work Phone: Start: 10-08-2019 Blood count complete automated Allie spencer MD Work Phone: Start: 10-07-2019 H/O: surgery S/P laparotomy Delon Palacios MD Work Phone: Start: 10-07-2019 OPERATIVE REPORT 3m Scanning Start: 10-07-2019 Antibody screen Delon Palacios MD Work Phone: Comment on above: Test Performed by [facility], [address] [place] [id number] Start: 10-07-2019 Blood typing serologic abo Alessandro Oliver Work Phone: Start: 09-15-2019 Gonadotropin follicle stimulating hormone Delon Palacios MD Work Phone: Start: 09-11-2019 transvaginal Valerie Gerard CAR ATTENDANT - CLASSROOM TEACHER Work Phone: Start: 09-05-2019 OPERATIVE REPORT 3m Scanning Start: 09-05-2019 Basic metabolic panel calcium total Cornel Elaine DO Work Phone: Start: 09-04-2019 Assay of magnesium Raghu Rivers MD Work Phone: Start: 09-04-2019 BASIC METABOLIC PANEL W/ REFLEX TO MG FOR LOW K Raghu Rivers MD Work Phone: Start: 09-03-2019 Radiologic exam abdomen 1 view Italo oneil MD Work Phone: Start: 09-03-2019 Culture bacterial quanttative colony count urine Raghu Rivers MD Work Phone: Abdominal hysterectomy ANNE BURROWS MD Cholecystectomy ANNE Ferreira MD Laboratory test result abnormal Abnormal laboratory test result Dr. Silverio Haley MD Work Phone: Comment on above: Does not meet criteria for Lupus henrrya terry Plan of Treatment Date Care Activity Detail Author Start: 2054 RSV Immunization for Adults (1 - 1-dose 75+ series) RSV Immunization for Adults (1 - 1-dose 75+ series) [facility] Start: 2044 Pneumococcal Vaccine: Ped or At-Risk (2 of 2 - PPSV23) Pneumococcal Vaccine: Ped or At-Risk (2 of 2 - PPSV23) [facility] Start: 2029 Zoster Vaccines (1 of 2) Zoster Vaccines (1 of 2) [facility] Start: 02-25-2028 Diabetes Screening Diabetes Screening [facility] Start: 02-17-2028 Lipid panel Lipid Screening [facility] Start: 12-18-2027 Diabetes Screening Diabetes Screening [facility] Start: 12-16-2027 Diabetes Screening Diabetes Screening [facility] Start: 06-26-2027 Lipid panel Lipid Panel [facility] Start: 03-30-2026 Diabetes Screening Diabetes Screening [facility] Start: 02-16-2026 Diabetes mellitus screening Diabetes Screening [facility] Start: 02-14-2026 Annual PCP Team Chronic Disease Visit Annual PCP Team Chronic Disease Visit [facility] Start: 12-07-2025 Annual PCP Team Chronic Disease Visit Annual PCP Team Chronic Disease Visit [facility] Start: 11-30-2025 Annual PCP Team Chronic Disease Visit Annual PCP Team Chronic Disease Visit [facility] Start: 11-17-2025 Annual PCP Team Chronic Disease Visit Annual PCP Team Chronic Disease Visit [facility] Start: 10-27-2025 Annual PCP Team Chronic Disease Visit Annual PCP Team Chronic Disease Visit [facility] Start: 10-18-2025 Annual PCP Team Chronic Disease Visit Annual PCP Team Chronic Disease Visit [facility] Start: 10-03-2025 Annual PCP Team Chronic Disease Visit Annual PCP Team Chronic Disease Visit [facility] Start: 10-03-2025 Covid-19 Vaccine ( season) Covid-19 Vaccine ( season) [facility] Comment on above: Postponed from 05/15/2024 (Declined at t his time) Start: 09-21-2025 Annual PCP Team Chronic Disease Visit Annual PCP Team Chronic Disease Visit [facility] Start: 07-20-2025 Annual PCP Team Chronic Disease Visit Annual PCP Team Chronic Disease Visit [facility] Start: 07-11-2025 Annual PCP Team Chronic Disease Visit Annual PCP Team Chronic Disease Visit [facility] Start: 06-21-2025 Annual PCP Team Chronic Disease Visit Annual PCP Team Chronic Disease Visit [facility] Start: 05-28-2025 DTaP/Tdap/Td vaccine (2 - Td) DTaP/Tdap/Td vaccine (2 - Td) [facility] Work Phone: Start: 05-28-2025 DTaP/Tdap/Td Vaccines (2 - Td or Tdap) DTaP/Tdap/Td Vaccines (2 - Td or Tdap) [facility] Start: 05-28-2025 Tetanus vaccination Tetanus: Every 10yrs [facility] Start: 05-28-2025 Urine microalbumin profile [facility] Start: 05-15-2025 Influenza vaccination [facility] Start: 05-08-2025 Colonoscopy COLONOSCOPY [facility] Start: 05-08-2025 COLORECTAL CANCER SCREENING COLORECTAL CANCER SCREENING [facility] Start: 05-08-2025 Screening for malignant neoplasm of colon [facility] Start: 03-13-2025 Influenza vaccination Influenza Vaccine (#1) [facility] Comment on above: Postponed from 05/15/2024 (Declined at t his time) Start: 01-30-2025 End: 01-30-2025 Patient encounter procedure 01/30/2025 1:00 PM EDT Office Visit [facility] [address] [place] [phone] Sunny Story MD [address] [place] [address] [facility] Ob[facility] Start: 12-29-2024 End: 12-29-2024 Patient encounter procedure 12/29/2024 2:45 PM EDT Office Visit [facility] [address] [place] [phone] Sunny Story MD [address] [place] [address] [facility] [place] Start: 12-27-2024 End: 12-27-2024 Patient encounter procedure 12/27/2024 11:00 AM EDT Office Visit [facility] [address] [place] [id number] Shelli Espinal PA-C [address] [place] [address] [facility] Start: 12-21-2024 End: 12-21-2024 Patient encounter procedure 12/21/2024 12:30 PM EDT Office Visit [facility] [place] [address] [place] [phone] Sunny Story MD [address] [place] [address] [facility] [place] Start: 11-25-2024 End: 11-25-2024 [facility] encounter [facility] [place] Comment on above: 4 wk follow up - headaches Start: 11-17-2024 [facility] Start: 11-17-2024 End: 02-16-2025 CBC panel - Blood by Automated count COMPLETE BLOOD COUNT Lab Routine Tremor Expected: 11/17/2024, Expires: 02/16/2025 [facility] Work Phone: Comment on above: Expected: 11/17/2024, Expires: Start: 11-17-2024 End: 02-16-2025 Cobalamin (Vitamin B12) [Mass/volume] in Serum or Plasma VITAMIN B12 Lab Routine Tremor Expected: 11/17/2024, Expires: 02/16/2025 [facility] Comment on above: Expected: 11/17/2024, Expires: Start: 11-17-2024 End: 02-16-2025 Comprehensive metabolic 2000 panel - Serum or Plasma COMPREHENSIVE METABOLIC PANEL Lab Routine Tremor Expected: 11/17/2024, Expires: 02/16/2025 [facility] Comment on above: Expected: 11/17/2024, Expires: Start: 11-17-2024 End: 02-16-2025 Ferritin [Mass/volume] in Serum or Plasma FERRITIN Lab Routine Tremor Expected: 11/17/2024, Expires: 02/16/2025 [facility] Comment on above: Expected: 11/17/2024, Expires: Start: 11-17-2024 End: 02-16-2025 Thyrotropin [Units/volume] in Serum or Plasma THYROID STIMULATING HORMONE Lab Routine Tremor Expected: 11/17/2024, Expires: 02/16/2025 [facility] Comment on above: Expected: 11/17/2024, Expires: Start: 10-04-2024 [facility] Start: 2024 Screening for malignant neoplasm of colon [facility] Start: 08-21-2024 [facility] Start: 06-10-2024 End: 06-10-2024 Patient encounter procedure 06/10/2024 10:40 AM EDT Office Visit [facility] [place] [address] [place], [place] [id number] Silverio Haley MD [address] [place] [address] right leg edema, painful when walking, Patient is unable to come today, has to give transportation 48 hour notice, only wants to see [facility] [place] Comment on above: right leg edema, painful when walking, P atient is unable to come today, has to give transportation 48 hour notice, only wants to see [facility] Start: 05-15-2024 COVID-19 Vaccine ( season) COVID-19 Vaccine () [facility] Start: 05-15-2024 Covid-19 Vaccine ( season) Covid-19 Vaccine () [facility] Start: 05-15-2024 Influenza vaccination Influenza Vaccine (#1) [facility] Start: 05-04-2024 End: 05-04-2024 Follow-up encounter 05/04/2024 8:00 AM EDT [facility] [place] [address] [facility] [place] [address] Silverio Haley MD [address] [facility] [place] [address] virtual visit per LT 5 day follow up [facility] [place] Comment on above: virtual visit per LT 5 day follow up Start: 03-12-2024 End: 03-12-2024 Follow-up encounter 03/12/2024 9:40 AM EDT [facility] [place] [address] [facility] [place] [address] Silverio Haley MD [address] [facility] [place] [address] 2 month follow up [facility] [place] Comment on above: 2 month follow up Start: 03-04-2024 End: 03-04-2024 Follow-up encounter 03/04/2024 10:00 AM EDT [facility] [place] [address] [facility] [place] [address] Silverio Haley MD [address] [facility] [place] [address] 2 month follow up [facility] [place] Comment on above: 2 month follow up Start: 01-20-2024 COVID-19 VACCINE (3 - Booster for Lauren series) COVID-19 VACCINE (3 - Booster for Lauren series) [facility] Comment on above: Postponed from 11/21/2021 (Declined at t his time) Start: 01-19-2024 End: 01-19-2024 ambulatory 01/19/2024 9:40 AM EDT [facility] [place] [address] [facility] [place] [address] Gretchen Newton APRN.ORE WASHER [address] [facility] [place] [address] [facility] FU 5-4-24 abdominal pain dx with UTI( See phone encounter) [facility] [place] Comment on above: [facility] FU 5--24 abdominal pain dx with UTI ( See phone encounter) Start: 01-16-2024 End: 01-16-2024 [facility] Start: 01-15-2024 Mammography [facility] Start: 01-15-2024 Screening for malignant neoplasm of breast [facility] Start: 01-15-2024 Antibody to gastric parietal cell measurement [facility] Start: 01-15-2024 Cancer antigen 19-9 measurement [facility] Start: 01-15-2024 Catecholamines [Moles/volume] in Plasma [facility] Start: 01-15-2024 Celiac disease screen [facility] Start: 01-15-2024 Gastrin [Mass/volume] in Serum or Plasma [facility] Start: 01-15-2024 IgG subclass panel [Mass/volume] - Serum [facility] Start: 01-15-2024 In-vitro immunologic test [facility] Start: 01-15-2024 Lupus anticoagulant assay [facility] Start: 01-15-2024 Procedure [facility] Start: 01-15-2024 [facility] Start: 12-09-2023 [facility] Start: 12-04-2023 Patient discharge [facility] Start: 12-04-2023 Magnetic resonance cholangiopancreatography MRCP Abdomen without Contrast [facility] Start: 12-04-2023 MR Biliary ducts and Pancreatic duct WO contrast [facility] Start: 12-04-2023 Serum immunofixation [facility] Start: 12-04-2023 [facility] Start: 12-04-2023 Application of intermittent pneumatic compression device [facility] Start: 12-03-2023 Ambulation without limitation [facility] Start: 12-03-2023 Assessment of risk of venous thromboembolism [facility] Start: 12-03-2023 Insertion of catheter into peripheral vein [facility] Start: 12-03-2023 Oxygen therapy [facility] Start: 12-03-2023 Patient referral to dietitian [facility] Start: 12-03-2023 Providing care according to standard [facility] Start: 03-21-2024 Referral to gastroenterology service [facility] Start: 12-03-2023 [facility] Start: 12-03-2023 Following clinical pathway protocol [facility] Start: 12-03-2023 Hospital admission, emergency, from emergency room, medical nature [facility] Start: 12-03-2023 Verification routine [facility] Start: 12-03-2023 Admission procedure [facility] Start: 10-24-2023 [facility] Start: 09-20-2023 [facility] Start: 07-22-2023 [facility] Start: 06-17-2023 End: 06-17-2023 Patient encounter procedure 06/17/2023 9:00 AM EDT Office Visit [address] [place] [phone] Sunny Story MD [address] [place] [address] [facility] Start: 06-11-2023 [facility] Start: 05-25-2023 End: 05-25-2023 Patient encounter procedure 05/25/2023 11:00 AM EDT Office Visit [address] [place] [phone] Sunny Story MD [address] [place] [address] [facility] Start: 05-15-2023 Influenza vaccination [facility] Start: 03-30-2023 End: 05-30-2023 Amylase [Enzymatic activity/volume] in Serum or Plasma [facility] Work Phone: Comment on above: Expected: 03/30/2023, Expires: 3 Start: 03-30-2023 End: 05-30-2023 KRISTI BY IFA SCREEN [facility] Work Phone: Comment on above: Expected: 03/30/2023, Expires: 3 Start: 03-30-2023 End: 05-30-2023 Basic metabolic 2000 panel - Serum or Plasma [facility] Work Phone: Comment on above: Expected: 03/30/2023, Expires: 3 Start: 03-30-2023 End: 05-30-2023 C reactive protein [Mass/volume] in Serum or Plasma [facility] Work Phone: Comment on above: Expected: 03/30/2023, Expires: 3 Start: 03-30-2023 End: 05-30-2023 CELIAC SCREEN WITH REFLEX [facility] Work Phone: Comment on above: Expected: 03/30/2023, Expires: 3 Start: 03-30-2023 End: 05-30-2023 Erythrocyte sedimentation rate [facility] Work Phone: Comment on above: Expected: 03/30/2023, Expires: 3 Start: 03-30-2023 End: 05-30-2023 Hepatic function 2000 panel - Serum or Plasma [facility] Work Phone: Comment on above: Expected: 03/30/2023, Expires: 3 Start: 03-11-2023 End: 05-11-2023 Amylase [Enzymatic activity/volume] in Serum or Plasma [facility] Work Phone: Comment on above: Expected: 03/11/2023, Expires: 3 Start: 03-11-2023 End: 05-11-2023 Comprehensive metabolic 2000 panel - Serum or Plasma [facility] Work Phone: Comment on above: Expected: 03/11/2023, Expires: 3 Start: 03-11-2023 End: 05-11-2023 Lipase [Enzymatic activity/volume] in Serum or Plasma [facility] Work Phone: Comment on above: Expected: 03/11/2023, Expires: 3 Start: 02-16-2023 End: 04-18-2023 Hemoglobin A1c in Blood [facility] Work Phone: Comment on above: Expected: 02/16/2023, Expires: 3 Start: 09-30-2022 End: 11-30-2022 25-hydroxyvitamin D3 [Mass/volume] in Serum or Plasma VITAMIN D 25 HYDROXY Lab Routine Vitamin D deficiency Expected: 09/30/2022, Expires: 11/30/2022 [facility] Work Phone: Comment on above: Expected: 09/30/2022, Expires: 3 Start: 09-30-2022 End: 11-30-2022 Cobalamin (Vitamin B12) [Mass/volume] in Serum or Plasma VITAMIN B12 BLOOD Lab Routine Vitamin B12 deficiency Expected: 09/30/2022, Expires: 11/30/2022 [facility] Work Phone: Comment on above: Expected: 09/30/2022, Expires: 3 Start: 07-29-2022 [facility] Start: 06-26-2022 End: 08-26-2022 25-hydroxyvitamin D3 [Mass/volume] in Serum or Plasma [facility] Work Phone: Comment on above: Expected: 06/26/2022, Expires: 2 Start: 06-26-2022 End: 08-26-2022 CBC W Auto Differential panel - Blood [facility] Work Phone: Comment on above: Expected: 06/26/2022, Expires: 2 Start: 06-26-2022 End: 08-26-2022 Cobalamin (Vitamin B12) [Mass/volume] in Serum or Plasma [facility] Work Phone: Comment on above: Expected: 06/26/2022, Expires: 2 Start: 06-26-2022 End: 08-26-2022 Comprehensive metabolic 2000 panel - Serum or Plasma [facility] Work Phone: Comment on above: Expected: 06/26/2022, Expires: 2 Start: 06-26-2022 End: 08-26-2022 Folate [Mass/volume] in Serum or Plasma [facility] Work Phone: Comment on above: Expected: 06/26/2022, Expires: 2 Start: 06-26-2022 End: 08-26-2022 Hemoglobin A1c in Blood [facility] Work Phone: Comment on above: Expected: 06/26/2022, Expires: 2 Start: 06-26-2022 End: 08-26-2022 Iron and Iron binding capacity panel - Serum or Plasma [facility] Work Phone: Comment on above: Expected: 06/26/2022, Expires: 2 Start: 06-26-2022 End: 08-26-2022 LIPID PANEL, NONFASTING [facility] Work Phone: Comment on above: Expected: 06/26/2022, Expires: 2 Start: 06-26-2022 End: 08-26-2022 Thyrotropin [Units/volume] in Serum or Plasma [facility] Work Phone: Comment on above: Expected: 06/26/2022, Expires: 2 Start: 06-26-2022 End: 08-26-2022 Thyroxine (T4) free [Mass/volume] in Serum or Plasma [facility] Work Phone: Comment on above: Expected: 06/26/2022, Expires: 2 Start: 05-15-2022 Influenza vaccination INFLUENZA (#1) [facility] Start: 11-21-2021 COVID-19 VACCINE (3 - Booster for Lauren series) COVID-19 VACCINE (3 - Booster for Lauren series) [facility] Start: 05-15-2021 Influenza vaccination Sequential Influenza Vaccine (#1) [facility] Start: 03-12-2021 COVID-19 Vaccine (2 - Booster for Lauren series) COVID-19 Vaccine (2 - Booster for Lauren series) [facility] Start: 10-21-2019 End: 10-21-2019 Patient encounter procedure 10/21/2019 Office Visit Gynecologic Oncology Margaret Pimentel PA [address] [place] [phone] [facility] [place] SIGNAL SYSTEM TESTING MAINTAINER Oncology Start: 10-07-2019 End: 10-07-2019 Patient encounter procedure 10/07/2019 Appointment General Surgery Delon Palacios MD [address] [facility] [place] [place] [address] [phone] [facility] General Surgery Start: 10-06-2019 End: 10-06-2019 Patient encounter procedure 10/06/2019 Office Visit Urology Vitor Barragan, CAR ATTENDANT - CLASSROOM TEACHER [address] [place] [address] [phone] [facility] [place] Start: 10-03-2019 End: 10-03-2019 Evaluation and management of inpatient 10/03/2019 Office Visit Urology Vitor Barragan, CAR ATTENDANT - CLASSROOM TEACHER [address] [place] [address] [facility] U[facility] Start: 09-30-2019 End: 09-30-2019 Patient encounter procedure 09/30/2019 Appointment Pre-Admission Testing Delon Palacios MD [address] [facility] [place] [place] [address] [phone] [facility] Pre-Admit Testing Start: 09-21-2019 End: 09-21-2019 Patient encounter procedure 09/21/2019 Office Visit Obstetrics and Gynecology Sunny Story MD [address] [place] [address] [phone] [facility] Start: 2019 Lipid screen Lipid screen [facility] Work Phone: Start: 2019 Mammography MAMMOGRAM [facility] Start: 2019 Screening for malignant neoplasm of breast Mammogram [facility] Start: 05-19-2018 PNEUMOCOCCAL (2 - PCV) PNEUMOCOCCAL (2 - PCV) [facility] Start: 05-19-2018 Pneumococcal vaccination [facility] Start: 05-19-2018 Pneumococcal Vaccine: Pediatrics (0 to 5 Years) and At-Risk Patients (6 to 49 Years) (2 of 2 - PCV) Pneumococcal Vaccine: Pediatrics (0 to 5 Years) and At-Risk Patients (6 to 49 Years) (2 of 2 - PCV) [facility] Start: 05-19-2018 Pneumococcal Vaccine: Pediatrics (0 to 5 Years) and At-Risk Patients (6 to 64 Years) (2 - PCV) Pneumococcal Vaccine: Pediatrics (0 to 5 Years) and At-Risk Patients (6 to 64 Years) (2 - PCV) [facility] Start: 2009 Screening for malignant neoplasm of cervix [facility] Start: 2006 HPV Vaccine (1 - 3-dose SCDM series) HPV Vaccine (1 - 3-dose SCDM series) [facility] Start: 2000 Cervical cancer screen Cervical cancer screen [facility] Work Phone: Start: 2000 Screening for malignant neoplasm of cervix Pap Smear [facility] Start: 1998 Hepatitis A Vaccines (1 of 2 - Risk 2-dose series) Hepatitis A Vaccines (1 of 2 - Risk 2-dose series) [facility] Start: 1998 Hepatitis B Vaccine (1 of 3 - 19+ 3-dose series) Hepatitis B Vaccine (1 of 3 - 19+ 3-dose series) [facility] Start: 1998 Hepatitis B Vaccines (1 of 3 - 19+ 3-dose series) Hepatitis B Vaccines (1 of 3 - 19+ 3-dose series) [facility] Start: 1997 Diabetes mellitus screening Diabetes Screening [facility] Start: 1997 Hepatitis C screening Hepatitis C Screening [facility] Start: 1997 HEPATITIS C SCREENING HEPATITIS C SCREENING [facility] Start: 1997 HIV SCREENING HIV SCREENING [facility] Start: 1997 Spirometry Spirometry [facility] Start: 1994 HIV screen HIV screen [facility] Work Phone: Start: 1994 HIV screening HIV Screening [facility] Start: 1991 Depression Monitoring Depression Monitoring [facility] Start: 1991 Depression screening using PHQ-9 (Patient Health Questionnaire 9) score [facility] Start: 1982 History and physical examination, annual for health maintenance Wellness Visit [facility] Start: 1980 MMR Vaccines (1 of 1 - Standard series) MMR Vaccines (1 of 1 - Standard series) [facility] Start: 1979 HEPATITIS B (1 of 3 - 3-dose series) HEPATITIS B (1 of 3 - 3-dose series) [facility] Start: 1979 Hepatitis B Vaccine (1 of 3 - 3-dose series) Hepatitis B Vaccine (1 of 3 - 3-dose series) [facility] Start: 1979 Hepatitis B Vaccines (1 of 3 - 3-dose series) Hepatitis B Vaccines (1 of 3 - 3-dose series) [facility] Start: 1979 HIV screening HIV Screening [facility] Start: 1979 Lipid panel Lipid Panel [facility] Start: 1979 Screening for malignant neoplasm of cervix Pap Smear [facility] Start: 1979 Screening for malignant neoplasm of colon [facility] Albumin [Moles/volum e] in Serum or Plasma [facility] Albumin/Globulin ratio [facility] Amphetamine [Mass/vo lume] in Urine [facility] Antibody to lupus La protein measurement [facility] Antibody to SS-A measurement [facility] Bacteria identified in Urine by Culture [facility] End: 02-24-2025 Bacteria identified in Urine by Culture [facility] Work Phone: Comment on above: Once (Lab) for 1 Occurrences starting until 02/24/2025 Bacteria identified in Urine by Culture BACTERIAL CULTURE, URINE Microbiology Routine Acute UTI 02/14/2025 11:21 AM EDT [facility] End: 09-07-2019 Basic metabolic 2000 panel - Serum or Plasma Basic Metabolic Panel Lab Routine Daily for 3 Days starting 09/05/2019 until 09/07/2019, 1 completed [facility] Work Phone: Comment on above: Daily for 3 Days starting 09/05/2019 unt il 09/07/2019, 1 completed Beef IgE Ab [Units/v olume] in Serum [facility] Benzodiazepine measu rement, urine [facility] End: 09-07-2019 CBC W Auto Differential panel - Blood CBC Auto Differential Lab Routine Daily for 3 Days starting 09/05/2019 until 09/07/2019, 1 completed [facility] Work Phone: Comment on above: Daily for 3 Days starting 09/05/2019 unt il 09/07/2019, 1 completed Centromere protein B Ab [Units/volume] in Serum [facility] Chocolate IgE Ab [Un its/volume] in Serum [facility] Chromatin Ab [Units/ volume] in Serum or Plasma [facility] Cocaine measurement, urine [facility] Codfish IgE Ab [Unit s/volume] in Serum [facility] Walnut IgE Ab [Units/v olume] in Serum [facility] Cow milk IgE Ab [Uni ts/volume] in Serum [facility] End: 02-16-2026 DBT Breast - bilateral screening SOPHIE SCREENING W IVON Radiology Routine Encounter for screening mammogram for breast cancer 1 Occurrences starting 01/17/2025 until 02/16/2026 [facility] Work Phone: Comment on above: 1 Occurrences starting 01/17/2025 until 02/16/2026 DNA double strand Ab [Units/volume] in Serum [facility] DOPamine [Mass/volum e] in Serum or Plasma [facility] End: 10-03-2025 Echocardiography ECHO Cardiology Routine Pericardial effusion LARSON (dyspnea on exertion) 1 Occurrences starting 10/03/2024 until 10/03/2025 [facility] Work Phone: Comment on above: 1 Occurrences starting 10/03/2024 until 10/03/2025 Elastase.pancreatic [Presence] in Stool [facility] Electrophoresis: [id number] [facility] Electrophoresis: gamma globulin [facility] End: 11-17-2025 EMG(NEURO/NI) EMG(NEURO/NI) EMG Routine Tremor 1 Occurrences starting 11/17/2024 until 11/17/2025 [facility] Comment on above: 1 Occurrences starting 11/17/2024 until 11/17/2025 EPINEPHrine [Mass/vo lume] in Plasma [facility] End: 09-05-2019 FL Retrograde Pyelogram W WO Kub FL Retrograde Pyelogram W WO Kub Imaging Routine Once for 1 Occurrences starting 09/05/2019 until 09/05/2019 [facility] Work Phone: Comment on above: Once for 1 Occurrences starting 09/05/20 19 until 09/05/2019 FL Retrograde Pyelogram W WO Kub FL Retrograde Pyelogram W WO Kub Imaging Routine 09/05/2019 7:35 AM EST [facility] Work Phone: Gastrin [Mass/volume ] in Serum or Plasma [facility] Gastrointestinal pat hogens panel - Stool by ABRAM with probe detection [facility] Giardia lamblia Ag [ Presence] in Stool by Immunoassay [facility] Gliadin peptide IgA Ab [Units/volume] in Serum [facility] Gliadin peptide IgG Ab [Units/volume] in Serum [facility] Globulin measurement [facility] Helicobacter pylori Ag [Presence] in Stool by Immunoassay H PYLORI AG BY EIA,STOOL Microbiology Routine Intractable nausea and vomiting Right sided abdominal pain Ordered: 03/30/2023 [facility] Work Phone: Comment on above: Ordered: 03/30/2023 IgA [Mass/volume] in Serum or Plasma [facility] IgA [Mass/volume] in Serum or Plasma [facility] IgE [Units/volume] i n Serum or Plasma [facility] IgG [Mass/volume] in Serum or Plasma [facility] IgG [Mass/volume] in Serum or Plasma [facility] IgG subclass 1 [Mass /volume] in Serum [facility] IgG subclass 1 [Mass /volume] in Serum [facility] IgG subclass 2 [Mass /volume] in Serum [facility] IgG subclass 2 [Mass /volume] in Serum [facility] IgG subclass 3 [Mass /volume] in Serum [facility] IgG subclass 3 [Mass /volume] in Serum [facility] IgG subclass 4 [Mass /volume] in Serum [facility] IgG subclass 4 [Mass /volume] in Serum [facility] IgM [Mass/volume] in Serum or Plasma [facility] Incentive spirometry Incentive s pirometry Respiratory Care Routine Every 2hr while awake until discontinued starting 10/07/2019 [facility] Work Phone: Comment on above: Every 2hr while awake until discontinued starting 10/07/2019 Influenza virus A an d B RNA and SARS-CoV-2 (COVID-19) N gene panel - Respiratory specimen by ABRAM with probe detection COVID & INFLUENZA A/B NAAT, ROUTINE Microbiology Routine Viral URI with cough 08/12/2023 5:34 PM EST [facility] Work Phone: Initiate Oxygen Therapy Protocol [facility] Work Phone: Comment on above: Daily until discontinued starting 2018 Daily until disconti nued starting 10/07/2019 Luz-1 extractable nuc lear Ab [Units/volume] in Serum [facility] End: 08-19-2025 LUNG VOLUMES LUNG VOLUMES PFT Routine Subacute cough Acute asthmatic bronchitis 1 Occurrences starting 07/20/2024 until 08/19/2025 [facility] Comment on above: 1 Occurrences starting 07/20/2024 until 08/19/2025 Lupus anticoagulant screening test [facility] Measurement of 3,4-methylenedioxymethamphetamin e in urine [facility] Measurement of immun oglobulin A in serum specimen [facility] Methadone measurement, urine [facility] End: 03-18-2025 MG Breast Screening SOPHIE SCREENING Radiology Routine Encounter for screening mammogram for breast cancer 1 Occurrences starting 02/17/2024 until 03/18/2025 [facility] Work Phone: Comment on above: 1 Occurrences starting 02/17/2024 until 03/18/2025 Microscopic urinalysis [facility] Mycobacterium tuberc ulosis tuberculin stimulated gamma interferon [Presence] in Blood [facility] End: 12-17-2024 Neisseria gonorrhoeae DNA [Presence] in Cervical mucus by ABRAM with probe detection [facility] [employer] [facility] Work Phone: Comment on above: Once (Lab) for 1 Occurrences starting until 12/17/2024 Neutrophil cytoplasm ic Ab.classic [Units/volume] in Serum [facility] End: 08-19-2025 NITRIC OXIDE, EXHALED NITRIC OXIDE, EXHALED PFT Routine Subacute cough Acute asthmatic bronchitis 1 Occurrences starting 07/20/2024 until 08/19/2025 [facility] Comment on above: 1 Occurrences starting 07/20/2024 until 08/19/2025 End: 01-12-2025 NM Stomach Views for gastric emptying liquid phase W radionuclide PO NM GASTRIC EMPTYING LIQUID Radiology Routine Intractable nausea and vomiting Nausea 1 Occurrences starting 12/14/2023 until 01/12/2025 [facility] Work Phone: Comment on above: 1 Occurrences starting 12/14/2023 until 01/12/2025 Organism count, micr oscopic method [facility] P-ANCA measurement [facility] Partial thromboplast in time ratio [facility] Patient Education [facility] Work Phone: Patient referral [facility] Work Phone: Peanut IgE Ab [Units /volume] in Serum [facility] pH of Urine [facility] Phencyclidine [Prese nce] in Urine [facility] Plasma norepinephrin e measurement [facility] Pork IgE Ab [Units/v olume] in Serum [facility] Protein electrophore sis panel - Serum or Plasma [facility] Protein measurement [facility] End: 08-21-2023 Radiologic exam chest 2 views XR CHEST 2V FRONTAL/LAT Radiology Routine Acute cough 1 Occurrences starting 07/22/2022 until 08/21/2023 [facility] Work Phone: Comment on above: 1 Occurrences starting 07/22/2022 until 08/21/2023 CAMP TENDER antibody measurement [facility] [place] IgE Ab [Units /volume] in Serum [facility] SCL-70 extractable n uclear Ab [Units/volume] in Serum by Immunoassay [facility] End: 05-09-2023 Screening mammography bi 2-view breast inc cad SOPHIE SCREENING Radiology Routine Encounter for screening mammogram for breast cancer 1 Occurrences starting 04/09/2022 until 05/09/2023 [facility] Work Phone: Comment on above: 1 Occurrences starting 04/09/2022 until 05/09/2023 Shrimp IgE Ab [Units /volume] in Serum [facility] Rosales extractable nu clear Ab [Presence] in Serum [facility] Soybean IgE Ab [Unit s/volume] in Serum [facility] End: 08-19-2025 SPIROMETRY - BASELINE AND POST DILATOR SPIROMETRY - BASELINE AND POST DILATOR PFT Routine Subacute cough Acute asthmatic bronchitis 1 Occurrences starting 07/20/2024 until 08/19/2025 [facility] Work Phone: Comment on above: 1 Occurrences starting 07/20/2024 until 08/19/2025 End: 10-07-2019 Surgical Pathology Surgical Pathology Lab Routine Once for 1 Occurrences starting 10/07/2019 until 10/07/2019 [facility] Work Phone: Comment on above: Once for 1 Occurrences starting 10/07/19 20 until 10/07/2019 Surgical Pathology Surgical Path ology Lab Routine 10/07/2019 9:44 AM EST [facility] Work Phone: Thrombin time [facility] Tissue transglutamin ase IgA Ab [Units/volume] in Serum [facility] Tissue transglutamin ase IgA Ab [Units/volume] in Serum [facility] Tuna IgE Ab [Units/v olume] in Serum [facility] UA DIP B/O UA DIP B/O Lab Routine Acute UTI Ordered: 02/14/2025 [facility] Work Phone: Comment on above: Ordered: 02/14/2025 Urine barbiturate measurement [facility] Urine cannabinoid measurement [facility] Urine microscopy: ep ithelial cells [facility] Urine microscopy: red cells [facility] Urine opiate measurement [facility] End: 04-09-2024 US ABD RIGHT UPPER QUADRANT US ABD RIGHT UPPER QUADRANT Radiology Routine Acute pancreatitis without infection or necrosis, unspecified pancreatitis type 1 Occurrences starting 03/11/2023 until 04/09/2024 [facility] Work Phone: Comment on above: 1 Occurrences starting 03/11/2023 until 04/09/2024 End: 06-10-2024 US KIDNEY/BLADDER US KIDNEY/BLADDER Radiology Routine Generalized abdominal pain Hydroureter on left History of kidney stones 1 Occurrences starting 05/12/2023 until 06/10/2024 [facility] Work Phone: Comment on above: 1 Occurrences starting 05/12/2023 until 06/10/2024 Wheat IgE Ab [Units/ volume] in Serum [facility] White blood cell count [facility] Whole Egg IgE Ab [Un its/volume] in Serum [facility] End: 07-10-2025 XR Ankle - left AP and Lateral and oblique XR ANKLE GENERAL 3V AP/LAT/OBL LEFT Radiology Routine Acute left ankle pain Localized swelling, mass and lump, left lower limb 1 Occurrences starting 06/10/2024 until 07/10/2025 [facility] Work Phone: Comment on above: 1 Occurrences starting 06/10/2024 until 07/10/2025 End: 05-01-2025 XR Chest PA and Lateral XR CHEST 2V FRONTAL/LAT Radiology STAT Acute cough 1 Occurrences starting 04/01/2024 until 05/01/2025 [facility] Work Phone: Comment on above: 1 Occurrences starting 04/01/2024 until 05/01/2025 End: 08-19-2025 XR Chest PA and Lateral XR CHEST 2V FRONTAL/LAT Radiology Routine Subacute cough Acute asthmatic bronchitis 1 Occurrences starting 07/20/2024 until 08/19/2025 [facility] Comment on above: 1 Occurrences starting 07/20/2024 until 08/19/2025 End: 12-30-2025 XR Knee - right AP and Lateral XR KNEE LIMITED 2V AP/LAT RIGHT Radiology Routine Chronic pain of right knee Locking of right knee 1 Occurrences starting 11/30/2024 until 12/30/2025 [facility] Work Phone: Comment on above: 1 Occurrences starting 11/30/2024 until 12/30/2025 [facility] Immunizations Immunization Date Immunization Notes Care Provider Lisy rosado 06-16-2023 influenza, injectabl e, quadrivalent, preservative free Silverio Haley MD Work Phone: [facility] 06-16-2023 influenza virus vacc ine, unspecified formulation 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 Work Phone: [facility] 09-16-2022 influenza, injectabl e, quadrivalent, preservative free No Pcp [facility] Work Phone: 05-30-2022 influenza virus vacc ine, unspecified formulation Megan Duglas FAMILY SPECIALIST [facility] 08-05-2021 influenza, injectabl e, quadrivalent, preservative free Isabel Arias PA-C Work Phone: [facility] Work Phone: 01-15-2021 COVID-19 vaccine (LAUREN) Isabel Arias PA-C Work Phone: [facility] Work Phone: 05-11-2020 influenza, seasonal, injectable Isabel Arias PA-C Work Phone: [facility] 05-31-2019 influenza, seasonal, injectable Isabel Arias PA-C Work Phone: [facility] 05-19-2017 pneumococcal polysaccharide vaccine, 23 valent Isabel Arias PA-C Work Phone: [facility] 06-14-2016 influenza virus vacc ine, unspecified formulation ANNE BURROWS MD [facility] 05-28-2015 tetanus toxoid, redu cierra diphtheria toxoid, and acellular pertussis vaccine, adsorbed Isabel Arias PA-C Work Phone: [facility] Work Phone: Payers Date Payer Category Payer Unknown [id number] 2025 [facility] Health [facility] [id number] 2023 Self-pay [id number] 2023 Government (not [facility] care or Medicaid) [facility] [id number] 2023 Unknown [id number]. 1.13.159.2 .7.3.476527.315 2019 Medicaid [id number]. 1.13.159.2 .7.3.253288.315 2019 Unknown [id number] 1.2.840.378861.1.13.385.2 .7.3.152663.315 2016 Unknown [id number] [address] [facility] xxxxxxxxxxxx 2015-Present [phone] [address] [place] [address] xxxxxxxxxxxx 1.2.840.884507.1.13.239.2 .7.3.739322.315 1979 Unknown [id number] 2.16.840.1.730919.3.579.2 .903 1979 Unknown [id number] 2.16.840.1.221191.3.579.2 .903 1979 Unknown [id number] 2.840.1.783890.3.579.2 .627 1979 Unknown [id number] 2.16.840.1.648772.3.579.2 .627 1979 Unknown [id number] 2.16.840.1.081306.3.579.2 .627 1979 Unknown [id number] 2.16.840.1.791516.3.579.2 .627 1979 Unknown [id number] 2.16.840.1.141647.3.579.2 .627 1979 Unknown [id number] 2.16.840.1.665158.3.579.2 .627 1979 Unknown [id number] 2.16.840.1.209382.3.579.2 .7 1979 Unknown [id number] 2.16.840.1.856191.3.579.2 .627 1979 Unknown [id number] 2.16.840.1.246453.3.579.2 .627 1979 Unknown [id number] 2.16.840.1.913208.3.579.2 .627 1979 Unknown [id number] 2.16.840.1.331385.3.579.2 .651 1979 Unknown [id number] 2.16.840.1.715262.3.579.2 .651 1979 Unknown [id number] 2.16.840.1.058956.3.579.2 .651 1979 Unknown [id number] 2.16.840.1.269667.3.579.2 .651 1979 Unknown [id number] 2.16.840.1.079465.3.579.2 .651 1979 Unknown [id number] 2.16.840.1.718330.3.579.2 .651 1979 Unknown [id number] 2.16.840.1.158071.3.579.2 .651 1979 Unknown [id number] 2.16.840.1.415359.3.579.2 .651 1979 Unknown [id number] 2.16.840.1.782378.3.579.2 .651 1979 Unknown [id number] 2.16.840.1.570709.3.579.2 .651 1979 Unknown [id number] 2.16.840.1.408825.3.579.2 .651 1979 Unknown [id number] 2.16.840.1.473078.3.579.2 .651 1979 Unknown [id number] 2.16.840.1.605315.3.579.2 .651 1979 Unknown [id number] 2.16.840.1.028223.3.579.2 .651 1979 Unknown [id number] 2.16840.1.440032.3.579.2 .651 Unknown [id number] Unknown [id number] 2.16840.1.226853.3.579.2 .462 Unknown [id number] 2.16.840.1.350678.3.579.2 .462 Unknown [id number] 2.16840.1.826585.3.579.2 .462 Unknown [id number] 2.16.840.1.651401.3.579.2 .462 Unknown [id number] 2.16840.1.090948.3.579.2 .462 Unknown [id number] 2.16.840.1.328997.3.579.2 .462 Unknown [id number] 2.16.840.1.287063.3.579.2 .462 Unknown [id number] 2.16840.1.688888.3.579.2 .462 Unknown [id number] 2.16.840.1.438264.3.579.2 .462 Unknown [id number] 2.16.840.1.556635.3.579.2 .462 Unknown [id number] 2.16.840.1.247537.3.579.2 .462 Unknown [id number] 2.16840.1.614615.3.579.2 .462 Unknown [id number] 2.16840.1.042240.3.579.2 .462 Unknown [id number] 2.16840.1.159892.3.579.2 .462 Unknown [id number] 2.840.1.959278.3.579.2 .462 Unknown [id number] 2.840.1.023005.3.579.2 .462 Unknown [id number] 2.840.1.556054.3.579.2 .462 Unknown [id number] 2.840.1.003469.3.579.2 .462 Unknown [id number] 2.840.1.912891.3.579.2 .462 Unknown [id number] 2.840.1.649404.3.579.2 .462 Unknown [id number] 2.840.1.883149.3.579.2 .462 Unknown [id number] 2.840.1.129980.3.579.2 .462 Unknown [id number] 2.840.1.610316.3.579.2 .462 Unknown [id number] 2.16840.1.920599.3.579.2 .462 Unknown [id number] 2.16840.1.521609.3.579.2 .462 Unknown [id number] 2.16840.1.134173.3.579.2 .462 Unknown [id number] 2.16840.1.380966.3.579.2 .462 Unknown [id number] 2.16.840.1.952200.3.579.2 .462 Social History Date Type Detail Facility Start: 06-25-2021 End: 12-17-2024 Tobacco smoking status NHIS Smokes tobacco daily [facility] Work Phone: Start: 01-12-2014 End: 01-12-2017 History of tobacco use Cigarette Smoker [facility] Work Phone: Start: 06-25-2021 End: 12-03-2023 Cigarettes smoked current (pack per day) - Reported 0.5 [facility] Start: 1980 Sex Assigned At Not on file S [facility] Work Phone: Exposure to SARS-CoV -2 (event) Unable to assess [facility] Start: 01-21-2020 Heavy tobacco smoker (finding) [facility] Start: 08-15-2012 Never [facility] Start: 1980 Sex Assigned At Female A [facility] Start: 09-05-2019 End: 10-18-2024 Tobacco smoking status NHIS Former smoker [facility] Start: 09-05-2019 Alcohol intake Current non-dr air drier of alcohol (finding) [facility] Work Phone: Start: 09-11-2019 End: 02-14-2025 Alcohol intake Current drinker of alcohol (finding) [facility] Work Phone: Start: 09-11-2019 Alcohol Comment social [facility] Work Phone: Start: 10-04-2021 End: 01-16-2024 Tobacco smoking status NHIS Unknown if ever smoked [facility] Start: 11-15-2020 None [facility] Start: 11-15-2020 Alone [facility] Start: 01-14-2021 Cigarettes [facility] Start: 01-12-2014 End: 01-12-2017 History of tobacco use Current smoker [facility] Start: 06-29-2017 End: 10-27-2024 Tobacco use and exposure Smokeless tobacco non-user [facility] Start: 11-16-2020 End: 08-04-2022 History SDOH Alcohol Frequency 98 [facility] Start: 11-26-2010 History SDOH Alcohol Comment Occasional [facility] Start: 11-16-2020 History SDOH Social Connections Phone 5 [facility] Start: 11-16-2020 End: 08-27-2021 History SDOH Social Connections [employer] [facility] Start: 11-16-2020 End: 06-17-2022 History SDOH Social Connections Membership 2 [facility] Start: 11-15-2020 Education 12 [facility] Start: 03-10-2011 End: 05-12-2022 Tobacco Comment Approx. 3 cigarettes daily-1 pack every week [facility] Start: 10-20-2020 End: 05-27-2022 Exposure to SARS-CoV-2 (event) Not sure [facility] Start: 06-17-2022 End: 08-04-2022 History SDOH Housing Places Lived 3 [facility] Tobacco smoking status [facility] Start: 08-04-2022 End: 12-03-2023 Social connection and isolation panel [facility] Are you now , , , , never or living with a partner? Refused [facility] Do you feel stress - tense, restless, nervous, or anxious, or unable to sleep at night because your mind is troubled all the time - these days [OSQ] Only a little [facility] (I/We) worried wheth er (my/our) food would run out before (I/we) got money to buy more. DK or Refused [facility] Start: 08-29-2021 Gender identity Identifies as female gender (all) [facility] Work Phone: Start: 08-29-2021 Sexual orientation Heterosexual (viktoriya matson) [facility] Work Phone: Are you now , , , , never or living with a partner? [facility] Do you belong to any clubs or organizations such as nondenominational groups, unions, fraternal or athletic groups, or school groups? No [facility] (I/We) worried minaeboni er (my/our) food would run out before (I/we) got money to buy more. Never true [facility] In the past 12 month s, was there a time when you were not able to pay the mortgage or rent on time? Yes [facility] Start: 06-16-2024 Tobacco Comment 1/2 pack per day [facility] Start: 08-09-2019 End: 04-14-2022 Sex Female (finding) [facility] Start: 01-12-2014 Tobacco smoking stat us [facility] Occasional tobacco smoker [facility] How often to you hav e a drink containing alcohol? Never [facility] How often to you hav e a drink containing alcohol? Monthly or less [facility] How many standard drinks containing alcohol do you have on a typical day? 1 or 2 [facility] NEGATED: Highlighted row [facility] Goals Date Patient Goal Desired Activity /State Functional Status Date Assessment Result Facility 09-24-2024 Functional Status Independent [facility] 09-24-2024 Functional Status Ambulation in Bach, Ambulation in Room [facility] 02-04-2024 Functional Status Independent [facility] 01-31-2024 Functional Status Independent [facility] 01-30-2024 Functional Status Standard Safet y ID band on, Allergy Band on, Call device within reach, Bed in low position, Wheels locked, Visitor at bedside, Safety level maintained [facility] 12-04-2023 Functional status Ambulates [facility] Work Phone: 03-16-2023 Functional Status Door open, Room check performed [facility] 03-16-2023 Functional Status [facility] 03-16-2023 Functional Status bilateral knee high l [facility] 03-16-2023 Functional Status Breakfast Percent 50 [facility] 03-16-2023 Functional Status Single level home [facility] 03-16-2023 Functional Status [facility] 03-16-2023 Functional Status [facility] 03-16-2023 Functional Status NPO Status Initiated [facility] 03-15-2023 Functional Status Sensory Deficits None A [facility] 01-21-2023 Functional Status ID band on, Allergy Band on, Call device within reach, Bed in low position, Wheels locked, Upper/Half-Length side-rails up [facility] 01-15-2023 Functional Status Standard Safet y ID band on, Call device within reach, Bed in low position, Wheels locked, Bedside Cart Locked, Safety level maintained [facility] 01-07-2023 Functional Status Room check performed [facility] 01-04-2023 Functional Status Independent [facility] 01-04-2023 Functional Status Standard Safet y ID band on, Call device within reach, Bed in low position, Wheels locked, Upper/Half-Length side-rails up, Bedside Cart Locked, Safety level maintained [facility] 12-24-2022 Functional Status Independent [facility] 10-13-2022 Functional Status Room check performed [facility] 10-12-2022 Functional Status Independent [facility] 10-12-2022 Functional Status Standard Safet y ID band on, Allergy Band on, Call device within reach, Bed in low position, Wheels locked, Upper/Half-Length side-rails up, Phone within reach, personal items within reach, Assistive devices within reach, Toileting device within reach, Bedside Cart Locked, Safety level maintained [facility] 02-06-2022 Functional Status Room check performed [facility] 02-06-2022 Functional Status [facility] 06-21-2020 Are you deaf, or do you have serious difficulty hearing 06/21/2020 10:30 AM Isaiah Dow RN No [facility] 06-21-2020 Are you blind, or do you have serious difficulty seeing, even when wearing glasses No 06/21/2020 10:30 AM EDT Isaiah Salinas, V[place] No [facility] 06-21-2020 Do you have serious difficulty walking or climbing stairs No 06/21/2020 10:30 AM EDT Isaiah Salinas RN No [facility] 06-21-2020 Do you have difficul ty dressing or bathing No 06/21/2020 10:30 AM EDT Isaiah Salinas RN [facility] 06-21-2020 Because of a physica l, mental, or emotional condition, do you have difficulty doing errands alone such as visiting a physician's office or shopping No 06/21/2020 10:30 AM EDIsaiah Higuera RN No [facility] Mental Status Date Assessment Result Facility 09-24-2024 Mental Status Orientation Oriented x 4 [facility] 09-24-2024 Mental Status [facility] 02-04-2024 Mental Status Orientation Oriented x 4 [facility] 02-04-2024 Mental Status [facility] 01-31-2024 Mental Status Orientation Oriented x 4 [facility] 01-30-2024 Mental Status [facility] 12-09-2023 Cognitive function Level Of Cons ciousness Awake;Alert;Appropriate;Fol lows Commands [facility] Work Phone: 12-04-2023 Cognitive function Voice/Name [facility] Work Phone: 09-20-2023 Cognitive function Level Of Cons ciousness Awake;Alert;Appropriate;Fol lows Commands [facility] Work Phone: 07-22-2023 Cognitive function Level Of Cons ciousness Awake;Alert;Appropriate;Fol lows Commands [facility] Work Phone: 04-16-2023 Cognitive function Level Of Cons ciousness Awake;Alert;Appropriate [facility] Work Phone: 03-16-2023 Mental Status Oriented x 4 [facility] 03-16-2023 Mental Status [facility] 03-16-2023 Mental Status [facility] 02-10-2023 Cognitive function Level Of Cons ciousness Awake;Alert;Appropriate [facility] Work Phone: 01-21-2023 Mental Status Orientation Oriented x 4 [facility] 01-15-2023 Mental Status Oriented x 4 [facility] 01-07-2023 Mental Status Orientation Oriented x 4 [facility] 01-04-2023 Mental Status Orientation Oriented x 4 [facility] 12-24-2022 Mental Status Orientation Oriented x 4 [facility] 10-13-2022 Mental Status Orientation Oriented x 4 [facility] 10-12-2022 Mental Status Orientation Oriented x 4 [facility] 10-12-2022 Mental Status [facility] 09-07-2022 Cognitive function Level Of Cons ciousness Awake;Alert;Appropriate;Fol lows Commands [facility] Work Phone: 02-06-2022 Mental Status Orientation Oriented x 4 [facility] 02-06-2022 Mental Status [facility] 06-21-2020 Because of a physica l, mental, or emotional condition, do you have serious difficulty concentrating, remembering, or making decisions No 06/21/2020 10:30 AM EDT Isaiah Salinas, VIN No [facility] Clinical Notes 09-05-2019 to 05-12-2025 Telephone Encounter - Ivanna Torre RN - 05/12/2025 12:52 PM EDTTelephone Encounter - Ivanna Torre RN - 05/12/2025 12:52 PM EDTTelephone Encounter - Mer Kovacs - 03/02/2025 12:10 PM EDT Note Date & Type Note Facility 05-12-2025 Telephone encounter Note Patient calls to request a prescription for cough. Patient reports persistent on-going non-productive cough x 4 weeks. No chest pain, Shortness of Breath. Afebrile. Notified patient would need appointment to evaluate. Patient declines. Reviewed care advice with verbalized understanding. Offered express care as an alternative option if changes her mind. Ivanna Torre RN [facility] 05-12-2025 Miscellaneous Notes Patient calls to request a prescription for cough. Patient reports persistent on-going non-productive cough x 4 weeks. No chest pain, Shortness of Breath. Afebrile. Notified patient would need appointment to evaluate. Patient declines. Reviewed care advice with verbalized understanding. Offered express care as an alternative option if changes her mind. Ivanna Torre RN documented in this encounter [facility] 03-03-2025 Telephone encounter Note Call routed onto Dr Story and andrés hansen sent [facility] 03-03-2025 Miscellaneous Notes Call routed onto Dr Juana hansen sent The patient is calling again and states the discharge is getting worse - she is not getting better and she has been dealing with this for 5 months. She is upset because she feels like she is stuck in pain and no one is treating her. She does not want Flagyl. She thinks the doctor should be concerned with discharge that has been present for 5 months. She is tired of being shoved to the ED. Name of caller: Sally Vargas Contact phone number: [phone] Relationship to Patient: patient Provider: Dr. Story Practice: [facility] Chief Complaint/Reason for Call: Pt stated that she missed a call from Dr. Story's nurse. Pt did not say what the call was in regards to.. Spoke with the office and was informed that Dr. Story's nurse was at lunch. Pt is requesting a call back. Please advise. Best time of day caller can be reached: Any Patient advised that office/PCP has 24-48 business hours to return their call: Yes documented in this encounter [facility] 03-02-2025 Telephone encounter Note The patient is calling again and states the discharge is getting worse - she is not getting better and she has been dealing with this for 5 months. She is upset because she feels like she is stuck in pain and no one is treating her. She does not want Flagyl. She thinks the doctor should be concerned with discharge that has been present for 5 months. She is tired of being shoved to the ED. [facility] 03-02-2025 Telephone encounter Note S: Patient spoke with CAC RN regarding discharge/abdominal pain Provider: Kimberly Practice Name: Yaquelin/Obdavid B: Onset of symptoms/concern 5 months A: Still having a lot of pain and discharge, ongoing for 4-5 months, discharge dark yellow, slimy, smells,, sick to stomach, has had hysterectomy, has been to ED 5x, sent home 5x, has been on 5 different antibiotics, states she is just getting worse and something needs to be done. Advised antibiotic Flagyl was called into her pharmacy on 02/28 after calling into triage. Patient very irate and tearful, states she's not picking it up and states she has been on flagyl and it didn't help. States she has no insurance or income, has no gas to get back and forth, cannot afford to go to office for visit or ED. Patient states nobody cares about what is going on or wants to do anything. Advised we can schedule another visit to discuss with MD or to discuss seeing a special MD that works with pelvic health. Again gets very upset regarding not having insurance or ability to pay for appointment. RN asked patient if she had any specific requests at this time as she has declined scheduling appointment, going to ED, picking up antibiotic that was called in, sending message regarding alternative medication. Patient states she needs admitted to the hospital. R: RN will send TE to provider office for further assistance. Advised office has 24-48 hours to respond to messages and requests. Patient was given contact information regarding [employer] financial assistance in previous encounter on 02/24. Again advised she has antibiotic at pharmacy and if symptoms are severe and uncontrolled prior to hearing from office needs to go to ED. States she needs to be admitted to the hospital. Declines setting up [employer]. Can be reached at [phone]. [facility] 03-02-2025 Miscellaneous Notes S: Patient spoke with CAC RN regarding discharge/abdominal pain Provider: Kimberly Practice Name: Yaquelin/Jurgen B: Onset of symptoms/concern 5 months A: Still having a lot of pain and discharge, ongoing for 4-5 months, discharge dark yellow, slimy, smells,, sick to stomach, has had hysterectomy, has been to ED 5x, sent home 5x, has been on 5 different antibiotics, states she is just getting worse and something needs to be done. Advised antibiotic Flagyl was called into her pharmacy on 02/28 after calling into triage. Patient very irate and tearful, states she's not picking it up and states she has been on flagyl and it didn't help. States she has no insurance or income, has no gas to get back and forth, cannot afford to go to office for visit or ED. Patient states nobody cares about what is going on or wants to do anything. Advised we can schedule another visit to discuss with MD or to discuss seeing a special MD that works with pelvic health. Again gets very upset regarding not having insurance or ability to pay for appointment. RN asked patient if she had any specific requests at this time as she has declined scheduling appointment, going to ED, picking up antibiotic that was called in, sending message regarding alternative medication. Patient states she needs admitted to the hospital. R: RN will send TE to provider office for further assistance. Advised office has 24-48 hours to respond to messages and requests. Patient was given contact information regarding [facility] financial assistance in previous encounter on 02/24. Again advised she has antibiotic at pharmacy and if symptoms are severe and uncontrolled prior to hearing from office needs to go to ED. States she needs to be admitted to the hospital. Declines setting up mychart. Can be reached at [phone]. S: Patient spoke with [facility] nurse regarding pelvic pain and discharge. B: Onset of symptoms/concern has had BV. States I have been on 5 antibiotic, last seen on 02/24/2025. Insurance: self pay Started back in December with these symptoms A: vaginal discharge, I was taking Percocet for the pelvic pain, dark yellow, + pelvic pain temperature 101.0 F tearful through the whole triage. R: Declined direction to the ED. Worried about transportation and not having gasoline. States is unemployed. Paging Dr. Paxton Bryson at 16:22. Advised to call int the Flagyl 500 mg bid x 7 days dispense 14, no refills. Needs to be seen in the ED tonight. CAC RN relayed message. CAC RN called the prescription to the Pharmacy. Patient states she isn't going to apple picker the Flagyl 500 mg BID x 7. States she doesn't have money for the prescription nor the Office Visit. Patient is agitated and upset. Patient understands care advice. Patient instructed to call back with new or worsening symptoms. Reason for Disposition Yellow or green vaginal discharge and has a fever Protocols used: Vaginal [id number] documented in this encounter [facility] 03-02-2025 Telephone encounter Note Name of caller: Sally Vargas Contact phone number: [phone] Relationship to Patient: patient Provider: Dr. Story Practice: [facility] Chief Complaint/Reason for Call: Pt stated that she missed a call from Dr. Story's nurse. Pt did not say what the call was in regards to.. Spoke with the office and was informed that Dr. Story's nurse was at lunch. Pt is requesting a call back. Please advise. Best time of day caller can be reached: Any Patient advised that office/PCP has 24-48 business hours to return their call: Yes [facility] 02-28-2025 Telephone encounter Note S: Patient spoke with [facility] nurse regarding pelvic pain and discharge. B: Onset of symptoms/concern has had BV. States I have been on 5 antibiotic, last seen on 02/24/2025. Insurance: self pay Started back in December with these symptoms A: vaginal discharge, I was taking Percocet for the pelvic pain, dark yellow, + pelvic pain temperature 101.0 F tearful through the whole triage. R: Declined direction to the ED. Worried about transportation and not having gasoline. States is unemployed. Paging Dr. Paxton Bryson at 16:22. Advised to call int the Flagyl 500 mg bid x 7 days dispense 14, no refills. Needs to be seen in the ED tonight. CAC RN relayed message. CAC RN called the prescription to the Pharmacy. Patient states she isn't going to apple picker the Flagyl 500 mg BID x 7. States she doesn't have money for the prescription nor the Office Visit. Patient is agitated and upset. Patient understands care advice. Patient instructed to call back with new or worsening symptoms. Reason for Disposition Yellow or green vaginal discharge and has a fever Protocols used: Vaginal [id number] [facility] 02-27-2025 Telephone encounter Note Pt called and is notified of providers message and instructions. Pt voices understanding. She states she went to the [place] ER and and she has an appointment with her OBGYN. Ashlyn Recio RN [facility] 02-27-2025 Miscellaneous Notes Pt called and is notified of providers message and instructions. Pt voices understanding. She states she went to the [place] ER and and she has an appointment with her OBGYN. Ashlyn Recio RN She really does need to follow up with souvenir street vendor, I'm not sure if she could get something set up with [facility] souvenir street vendor sooner. Patient calls today and demanding to have an appointment with provider. Patient reports that she was seen yesterday at [facility] ER and had a CT scan done. Patient reports that it did not show anything. Patient states that no one is doing anything for her. Patient states that she continues to have a lot abdominal pain and discharge. Patient states that she cannot drive because of pain. Patient states that she cannot get into Gynecology for 2 months even with her having all the pain. Offered to schedule appointment with Aury Aceves today, patient states I don't have any insurance or money and patient hangs up. Paradise Haley RN Pt was seen on 02/14/25 by Merced Hutchinson. She was seen for abd pain, difficulty urinating and foul smelling vaginal discharge. Pt called in again on 02/16/25 reporting worsening symptoms. Pt states she went to [facility] ER and they told her since she was being treated with antibiotics that there was nothing they could do for her and sent her home. Pt calling in today stating her abd cramping and abd pain is severe. States when she urinates, she is only urinating a tiny amount-cannot tell if she is emptying her bladder or not. Pt states she is still having copious amounts of the slimy foul smelling bloody vaginal discharge-states she is filling up pads it is so much. Also states she is having significant burning in her vulva area. Per Merced's response on 02/17, Merced states if pain is severe and not able to urinate then she needs to return to the ER or contact her SIGNAL SYSTEM TESTING MAINTAINER provider. Went over these instructions with pt who is very angry and yelled several times that she is not going back to the ER because they won't do anything for her. Asked pt if she contacted her souvenir street vendor provider. Pt states she did and they can't get her in for a couple of months. Instructed pt to go to try a [facility] ER. Pt states she has no $ and no gas in her car and won't be able to make it there. States she has not friends that she can borrow $ from. Pt called several times on 02/17 and wanted Merced to call the ER and tell them what to do. Per Merced, she would not be able to do that. Pt wanting to see Merced only and Gretchen Brown and Dr. Haley are all out of the office today. Reiterated to pt several times of the need for her to go to the ER. Pt still refusing and states they won't do anything for her because she is on antibiotics and she has no $ for gas to go to any other ER. Pt hung up on nurse. Pt does not have insurance and new referral was placed yesterday but had a previous referral where she was cleared through 03/08/25 but that referral is now closed. Checked with Financial counselor Ale Clancy who states pt is cleared until 03/09/25. documented in this encounter [facility] 02-27-2025 Telephone encounter Note She really does need to follow up with souvenir street vendor, I'm not sure if she could get something set up with [facility] vendor sooner. [facility] 02-24-2025 Note . MICRO - Microbiology PROCEDURE: Urine Culture [O1 *1] SOURCE: Urine BODY SITE: COLLECTED DATE/TIME: 02/23/2025 09:08 EDT RECEIVED DATE/TIME: 02/23/2025 14:38 EDT START DATE/TIME: 02/23/2025 14:38 EDT FREE TEXT SOURCE: FINAL REPORTS Final Report [] Verified Date/Time/Personnel: 02/24/2025 14:21 EDT 50,000 - 100,000 cfu/ml Mixed growth consistent with normal urogenital pilar. PRELIMINARY REPORTS Preliminary Report [] Verified Date/Time/Personnel: 02/23/2025 15:59 EDT Specimen received in lab. Order Comments O1: Urine Culture Added by Discern Performing Locations *1: This test was performed at: [facility], [address] [place] [address], [facility] , [facility] 02-24-2025 Hospital Discharg e instructions ASHLYN Wood CNP - 02/24/2025 1:[address] Stoyr and make an appt for early next week The following attachments cannot be sent through Care Everywhere.Chronic Pelvic Pain Discharge Instructions (Nicar[place]uan)Abdominal Pain, Adult ED ([place]icaraguan)Urinary Tract Infection Discharge Instructions, Adult ([place]icar[place]uan)documented in this encounter [facility] 02-24-2025 Telephone encounter Note Noted [facility] 02-24-2025 Miscellaneous Notes Noted S: Patient spoke with [facility] nurse regarding pelvic pain and vaginal discharge B: Onset of symptoms/concern ongoing for months A: Patient states back in December she had a vaginal swab and it came back as bacterial infection. Patient states she was never treated for it. A couple weeks ago saw PCP and so was given flagyl and another medication and now pain is worse and vaginal discharge is worse. Went to [place] ER Thursday and was treated for UTI and yeast infection. Yesterday went back to hospital and had CT scan done and nothing looked bad. Patient states she is having so much abdominal pain and discharge is white, slimy and has blood in it. Pain is severe and having a hard time driving. Pain has got worse since being in ER and is a constant pain. Has done heating pad and tylenol. Tylenol is not helping. Not able to sleep or eat because of the pain. R: Patient advised to go to the ER since her pain is worse today. Patient states that the ER does not help her or do anything for her so it would be a waste of time and gas money. Patient states she has no insurance and no money so no one will see her. Spoke with Horace in office at [place] who gave number for financial assistance. This number was provided to patient [phone]. Horace advised to reach out to Dr. Anya Mcdonald. Spoke with Tamara and patient was offered appointment today in [place]. Patient states she cannot come to [place] for an appointment as it is too far away. Patient also states she cannot wait until next week when offered to schedule appointment next week. Patient states she will go to [facility] ER but she has to be admitted for pain control. Dr. Joyner aware. No further needs at this time. Patient instructed to call back with new or worsening symptoms. Reason for Disposition SEVERE abdominal pain (e.g., excruciating) Protocols used: Vaginal [id number] documented in this encounter [facility] 02-24-2025 Emergency department Note EMERGENCY DEPARTMENT ENCOUNTER Pt Name: Sally Vargas Birthdate 1980 Date of evaluation: 02/24/2025 ED Provider: Mac Harding, CAR ATTENDANT - CLASSROOM TEACHER I have evaluated this patient on my own, per my scope of practice with an attending physician available for consultation. CHIEF COMPLAINT Chief Complaint Patient presents with Pelvic Pain Pt presents to ED for pelvic pain and vaginal discharge. Pt reports pelvic pain has been ongoing since December. Vaginal discharge started two weeks ago. Pt reports vaginal discharge is white with a small amount of blood noted. HISTORY OF PRESENT ILLNESS (Location/Symptom, Timing/Onset, Context/Setting, Quality, Duration, Modifying Factors, Severity) Note limiting factors. I wore appropriate PPE for the entirety of this encounter. HPI Sally Vargas is a 44 y.o. who presents to the emergency department with chief complaint of lower abdominal pain/pelvic pain has been ongoing since December. She has been seen for this multiple times in the emergency room since December, known to Dr. Dr. Sunny Story has a history of chronic pelvic pain originally seen in November in the emergency department, seen in December, subsequently had 3 visits in December for this, was seen at [facility] emergency room yesterday had labs and a CAT scan that were unremarkable. She called the call center yesterday and was offered an appointment the same day and then told them she had no money or insurance and then hung up on the call center. She states she was post to go to a pelvic pain specialist after being referred by Dr. Hearn but could not or cannot because she does not have insurance. She had another phone encounter yesterday where she screamed at the nurses several times and then eventually hung up on them also. She states she is having white vaginal discharge but she is also had a total hysterectomy. She had labs and a CAT scan yesterday at [facility] ER that were unremarkable. She has has had surgeries for a cyst in the past and for her hysterectomy. Nursing Notes were reviewed. Limitations to history: None Outside historians: None REVIEW OF SYSTEMS Review of Systems Constitutional: Negative for activity change, appetite change, chills and fever. HENT: Negative for congestion, nosebleeds, sinus pain and trouble swallowing. Eyes: Negative for pain and visual disturbance. Respiratory: Negative for cough, chest tightness and shortness of breath. Cardiovascular: Negative for chest pain. Gastrointestinal: Positive for abdominal pain. Negative for diarrhea, nausea and vomiting. Genitourinary: Positive for pelvic pain and vaginal discharge. Negative for dysuria, hematuria, vaginal bleeding and vaginal pain. Musculoskeletal: Negative for arthralgias, back pain and myalgias. Skin: Negative for rash and wound. Neurological: Negative for syncope, weakness, light-headedness and headaches. Hematological: Negative for adenopathy. Psychiatric/Behavioral: Negative for agitation and confusion. All other systems reviewed and are negative. Pertinent positives and negatives as per HPI. PAST MEDICAL HISTORY Medical History[1] SURGICAL HISTORY Surgical History[2] CURRENT MEDICATIONS Previous Medications COLESTIPOL (COLESTID) 1 G TABLET Take 1 g by mouth twice a day. DIAZEPAM (VALIUM) [address] one table vaginally nightly as needed for pelvic muscle spasm EPINEPHRINE (EPIPEN) 0.3 MG/0.3ML INJECTION SYRINGE As directed ESTRADIOL (ESTRACE) 0.5 MG TABLET TAKE 1 TABLET BY MOUTH EVERY DAY ESTRADIOL (ESTRACE) 2 MG TABLET Take 1 tablet (2 mg) by mouth daily. GABAPENTIN (NEURONTIN) 300 MG CAPSULE Take 1 capsule (300 mg) by mouth 3 times daily. HYDROCODONE-ACETAMINOPHEN (NORCO) 5-325 MG TABLET Dose = 1 tab(s), Oral, q6h, PRN for pain, tab(s), 0 Refill(s), 95.1 METOCLOPRAMIDE (REGLAN) 10 MG TABLET Take 1 tablet (10 mg) by mouth every 6 hours for 7 days. ONDANSETRON ODT (ZOFRAN-ODT) 4 MG DISINTEGRATING TABLET 4 mg. OXYCODONE (ROXICODONE) 5 MG IMMEDIATE RELEASE TABLET Take 1 tablet (5 mg) by mouth every 8 hours as needed for severe pain (7-10). PANTOPRAZOLE (PROTONIX) 40 MG EC TABLET Take 40 mg by mouth. PAROXETINE (PAXIL) 10 MG TABLET TAKE 1 TABLET (10 MG) BY MOUTH DAILY. PROMETHAZINE (PHENERGAN) 25 MG TABLET 25 mg. SUMATRIPTAN SUCCINATE 6 MG/0.5ML SOLUTION CARTRIDGE Inject 6 mg under the skin. TOPIRAMATE (TOPAMAX) 25 MG TABLET Take 25 mg by mouth twice a day. ALLERGIES Fentanyl, Iodine, Metronidazole, Salicylates, Cephalexin, Gadolinium derivatives, Iodinated contrast media, Naproxen, Nsaids, Ondansetron, Penicillins, Promethazine, Toradol [ketorolac tromethamine], Chlorhexidine, Ciprofloxacin, and Dicyclomine FAMILY HISTORY Family History[3] SOCIAL HISTORY Social History[4] SCREENINGS PHYSICAL EXAM ED Triage Vitals [02/24/25 1112] Temp Heart Rate Resp BP 36.4 C (97.5 F) 94 16 (!) 135/99 SpO2 Temp Source Heart Rate Source Patient Position 98 % Temporal Monitor -- BP Location FiO2 (%) -- -- Physical Exam Vitals and nursing note reviewed. Constitutional: General: She is not in acute distress. Appearance: Normal appearance. She is obese. She is not ill-appearing or toxic-appearing. HENT: Head: Normocephalic and atraumatic. Right Ear: External ear normal. Left Ear: External ear normal. Mouth/Throat: Mouth: Mucous membranes are moist. Pharynx: Oropharynx is clear. Eyes: Extraocular Movements: Extraocular movements intact. Conjunctiva/sclera: Conjunctivae normal. Pupils: Pupils are equal, round, and reactive to light. Cardiovascular: Rate and Rhythm: Normal rate and regular rhythm. Pulses: Normal pulses. Heart sounds: Normal heart sounds. No murmur heard. Pulmonary: Effort: Pulmonary effort is normal. No respiratory distress. Breath sounds: Normal breath sounds. No stridor. No wheezing or rhonchi. Musculoskeletal: General: No swelling, tenderness, deformity or signs of injury. Normal range of motion. Cervical back: Normal range of motion and neck supple. No rigidity or tenderness. Lymphadenopathy: Cervical: No cervical adenopathy. Skin: General: Skin is warm and dry. Capillary Refill: Capillary refill takes less than 2 seconds. Coloration: Skin is not jaundiced or pale. Findings: No bruising or erythema. Neurological: General: No focal deficit present. Mental Status: She is alert and oriented to person, place, and time. Mental status is at baseline. Cranial Nerves: No cranial nerve deficit. Sensory: No sensory deficit. Motor: No weakness. Coordination: Coordination normal. Psychiatric: Mood and Affect: Mood normal. DIAGNOSTIC RESULTS Procedures/EKG: EKG was reviewed by myself. Physician EKG interpretation can be found in [facility] RADIOLOGY (Per Emergency Physician): Interpretation per the Radiologist below, if available at the time of this note: No orders to display ED BEDSIDE ULTRASOUND: Performed by ED Physician - none LABS: Labs Reviewed COMPREHENSIVE METABOLIC PANEL - Abnormal Result Value SODIUM 137 POTASSIUM 4.0 CHLORIDE 105 CARBON DIOXIDE 22 ANION GAP 10 UREA NITROGEN 12 CREATININE 1.18 (*) GLUCOSE 97 CALCIUM 9.5 AST (SGOT) 19 ALT 21 ALKALINE PHOSPHATASE 130 ALBUMIN 4.2 BILIRUBIN, TOTAL 0.9 TOTAL PROTEIN 7.7 eGFR 58.2 (*) COMPLETE URINALYSIS WITH REFLEX TO CULTURE - Abnormal Color, Urine Yellow Clarity, Urine Turbid (*) pH, Urine 6.0 Leukocytes, Urine 500 (*) Nitrite, Urine Negative Protein, Urine 20 (*) Glucose, Urine Normal Bilirubin, Urine Negative Ketones, Urine Negative Urobilinogen, Urine Normal Blood, Urine 0.06 (*) RBC, Urine 51-100 (*) WBC, Urine >100 (*) Squamous Epithelial, Urine 11-25 (*) Bacteria, Urine Moderate (*) Mucus, Urine Many (*) SPECIFIC GRAVITY OF URINE (NUMERIC) 1.019 Narrative: This specimen has been reflexed to urine culture. LIPASE - Normal LIPASE 18 CBC (HEMOGRAM) - Normal Auto WBC 9.9 RBC 4.62 Hemoglobin 13.9 Hematocrit 41.6 MCV 90.0 MCH 30.1 MCHC 33.4 RDW 12.6 Platelets 257 MPV 10.6 VAGINITIS PANEL MVP PCR CHLAMYDIA/GONORRHEA URINE CULTURE All other labs were within normal range or not returned as of this dictation. EMERGENCY DEPARTMENT COURSE and DIFFERENTIAL DIAGNOSIS/MDM: Vitals: Vitals: 02/24/25 1112 02/24/25 1112 BP: (!) 135/99 Pulse: 94 Resp: 16 Temp: 36.4 C (97.5 F) TempSrc: Temporal SpO2: 98% Weight: 88.9 kg (196 lb) Height: 1.549 m (5' 1) Diagnoses as of 02/24/25 1327 Lower abdominal pain Chronic pelvic pain in female Urinary tract infection without hematuria, site unspecified The patient presented with chief complaint of with chief complaint of lower abdominal pain/pelvic pain has been ongoing since December. She has been seen for this multiple times in the emergency room since December, known to . Dr. Sunny Story has a history of chronic pelvic pain originally seen in November in the emergency department, seen in December, subsequently had 3 visits in December for this, was seen at [facility] emergency room yesterday had labs and a CAT scan that were unremarkable. She called the call center yesterday and was offered an appointment the same day and then told them she had no money or insurance and then hung up on the call center. She states she was post to go to a pelvic pain specialist after being referred by Dr. Hearn but could not or cannot because she does not have insurance. She had another phone encounter yesterday where she screamed at the nurses several times and then eventually hung up on them also. She states she is having white vaginal discharge but she is also had a total hysterectomy. She had labs and a CAT scan yesterday at [facility] that were unremarkable. She has has had surgeries for a cyst in the past and for her hysterectomy.. The differential diagnosis associated with this patient's presentation includes chronic abdominal pain, chronic pelvic pain, adhesions, STD, UTI, bacterial vaginosis. Our workup consisted of ordering/reviewing: Gonorrhea/chlamydia, vaginitis panel, CBC, CMP, lipase, urinalysis. Diagnostic tests considered but not performed: CT abdomen pelvis with the patient had one performed yesterday at [facility] which was unremarkable To aid in management, I performed an independent interpretation of [facility]. I also reviewed external records from [facility]. I discussed their care with Dr. Story is familiar with the patient she never followed up with chronic pelvic pain specialist, there is no clinical indication for admission at this time we will give her a short course of pain medication treat her urinary tract infection he will see her next week. Consideration for escalation of care with: none. The patient will be Discharged. Patient is in agreement with this plan. Medications morphine injection 4 mg (4 mg IntraVENous Given 02/24/25 1150) sulfamethoxazole-trimethoprim (Bactrim DS) 800-160 MG per tablet 1 tablet (1 tablet Oral Given 02/24/25 1234) REVAL: CRITICAL CARE TIME None CONSULTS: None PROCEDURES: Unless otherwise noted below, none Procedures Patients symptoms are consistent with sepsis, severe sepsis, or septic shock (If yes use .sepsiscoremeasure): no FINAL IMPRESSION 1. Lower abdominal pain 2. Chronic pelvic pain in female 3. Urinary tract infection without hematuria, site unspecified DISPOSITION Discharge 02/24/2025 01:25:06 PM PATIENT REFERRED TO: Silverio Haley [address] [facility] [address] Schedule an appointment as soon as possible for a visit Sunny Story MD [address] [place] [address], [address] [facility] [address] Schedule an appointment as soon as possible for a visit DISCHARGE MEDICATIONS: New Prescriptions OXYCODONE-ACETAMINOPHEN (PERCOCET) 5-325 MG TABLET Take 1 tablet by mouth every 6 hours as needed for severe pain (7-10) for up to 3 days. SULFAMETHOXAZOLE-TRIMETHOPRIM (BACTRIM DS) 800-160 MG TABLET Take 1 tablet by mouth 2 times daily for 10 days. (Comment: Please note this report has been produced using speech recognition software and may contain errors related to that system including errors in grammar, punctuation, and spelling, as well as words and phrases that may be inappropriate. If there are any questions or concerns please feel free to contact the dictating provider for clarification.) Mac Harding APRN - CLASSROOM TEACHER (electronically signed) Emergency Medicine Provider [1] Past Medical History: Diagnosis Date Cancer (CMS/HCC) (HCC) Chicken pox High cholesterol History of blood transfusion 2006 Kidney stones Right ureteral calculus 09/05/2019 [2] Past Surgical History: Procedure Laterality Date CHOLECYSTECTOMY CYSTOSCOPY 09/05/2019 cystoscopy, bilateral retrograde pyelograms, right ureteroscopy EXPLORATORY LAPAROTOMY Laparotomy RSO EXPLORATORY LAPAROTOMY 12/02/2016 exp lap, extensive lysis of adhesions, left ureterlysis and excision of left pelvic sidewall HYSTERECTOMY 2006 BSO for endometrisos LAPAROSCOPY DIAGNOSTIC / BIOPSY / ASPIRATION / LYSIS LIVER SURGERY 2019 removed cyst URETEROSCOPY Right 09/05/2019 C&P ( normal bilat). Right ureteroscopy-negative ( passessed stones). Ara [3] Family History Problem Relation Name Age of Onset Other ([address]89) Mother blood clots Hyperlipidemia Mother High Blood Pressure Mother [4] Social History Socioeconomic History Marital status: Tobacco Use Smoking status: Every Day Current packs/day: 0.50 Types: Cigarettes Smokeless tobacco: Never Vaping Use Vaping status: Never Used Substance and Sexual Activity Alcohol use: Yes Alcohol/week: 0.0 standard drinks of alcohol Drug use: Yes Types: Marijuana Comment: occasional gummy Social Drivers of Health Financial Resource Strain: Patient Declined (12/14/2023) Received from [facility] Overall Financial Resource Strain (CARDIA) Difficulty of Paying Living Expenses: Patient declined Food Insecurity: Patient Declined (12/14/2023) Received from [facility] Hunger Vital Sign Worried About Running Out of Food in the Last Year: Patient declined Ran Out of Food in the Last Year: Patient declined Transportation Needs: Patient Declined (12/14/2023) Received from [facility] PRAPARE - Transportation Lack of Transportation (Medical): Patient declined Lack of Transportation (Non-Medical): Patient declined Physical Activity: Patient Declined (12/14/2023) Received from [facility] Exercise Vital Sign Days of Exercise per Week: Patient declined Minutes of Exercise per Session: Patient declined Stress: No Stress Concern Present (11/15/2020) Received from [facility] Citizen Of [place] Eunice of Occupational Health - Occupational Stress Questionnaire Feeling of Stress : Only a little Social Connections: Unknown (12/14/2023) Received from [facility] Social Connection and Isolation Panel [NHANES] Active Member of Clubs or Organizations: Patient declined Marital Status: Patient declined Housing Stability: Patient Declined (12/14/2023) Received from [facility] Housing Stability Vital Sign Unable to Pay for Housing in the Last Year: Patient declined Unstable Housing in the Last Year: Patient declined ASHLYN Wood CNP 02/24/25 1327 documented in this encounter [facility] 02-24-2025 Physician Emergency department Note EMERGENCY DEPARTMENT ENCOUNTER Pt Name: Sally Vargas Birthdate 1980 Date of evaluation: 02/24/2025 ED Provider: ASHLYN Wood CNP I have evaluated this patient on my own, per my scope of practice with an attending physician available for consultation. CHIEF COMPLAINT Chief Complaint Patient presents with Pelvic Pain Pt presents to ED for pelvic pain and vaginal discharge. Pt reports pelvic pain has been ongoing since December. Vaginal discharge started two weeks ago. Pt reports vaginal discharge is white with a small amount of blood noted. HISTORY OF PRESENT ILLNESS (Location/Symptom, Timing/Onset, Context/Setting, Quality, Duration, Modifying Factors, Severity) Note limiting factors. I wore appropriate PPE for the entirety of this encounter. HPI Sally Vargas is a 44 y.o. who presents to the emergency department with chief complaint of lower abdominal pain/pelvic pain has been ongoing since December. She has been seen for this multiple times in the emergency room since December, known to . Dr. Sunny Story has a history of chronic pelvic pain originally seen in November in the emergency department, seen in December, subsequently had 3 visits in December for this, was seen at [facility] emergency room yesterday had labs and a CAT scan that were unremarkable. She called the call center yesterday and was offered an appointment the same day and then told them she had no money or insurance and then hung up on the call center. She states she was post to go to a pelvic pain specialist after being referred by Dr. Hearn but could not or cannot because she does not have insurance. She had another phone encounter yesterday where she screamed at the nurses several times and then eventually hung up on them also. She states she is having white vaginal discharge but she is also had a total hysterectomy. She had labs and a CAT scan yesterday at [facility] ER that were unremarkable. She has has had surgeries for a cyst in the past and for her hysterectomy. Nursing Notes were reviewed. Limitations to history: None Outside historians: None REVIEW OF SYSTEMS Review of Systems Constitutional: Negative for activity change, appetite change, chills and fever. HENT: Negative for congestion, nosebleeds, sinus pain and trouble swallowing. Eyes: Negative for pain and visual disturbance. Respiratory: Negative for cough, chest tightness and shortness of breath. Cardiovascular: Negative for chest pain. Gastrointestinal: Positive for abdominal pain. Negative for diarrhea, nausea and vomiting. Genitourinary: Positive for pelvic pain and vaginal discharge. Negative for dysuria, hematuria, vaginal bleeding and vaginal pain. Musculoskeletal: Negative for arthralgias, back pain and myalgias. Skin: Negative for rash and wound. Neurological: Negative for syncope, weakness, light-headedness and headaches. Hematological: Negative for adenopathy. Psychiatric/Behavioral: Negative for agitation and confusion. All other systems reviewed and are negative. Pertinent positives and negatives as per HPI. PAST MEDICAL HISTORY Medical History[1] SURGICAL HISTORY Surgical History[2] CURRENT MEDICATIONS Previous Medications COLESTIPOL (COLESTID) 1 G TABLET Take 1 g by mouth twice a day. DIAZEPAM (VALIUM) [address] one table vaginally nightly as needed for pelvic muscle spasm EPINEPHRINE (EPIPEN) 0.3 MG/0.3ML INJECTION SYRINGE As directed ESTRADIOL (ESTRACE) 0.5 MG TABLET TAKE 1 TABLET BY MOUTH EVERY DAY ESTRADIOL (ESTRACE) 2 MG TABLET Take 1 tablet (2 mg) by mouth daily. GABAPENTIN (NEURONTIN) 300 MG CAPSULE Take 1 capsule (300 mg) by mouth 3 times daily. HYDROCODONE-ACETAMINOPHEN (NORCO) 5-325 MG TABLET Dose = 1 tab(s), Oral, q6h, PRN for pain, tab(s), 0 Refill(s), 95.1 METOCLOPRAMIDE (REGLAN) 10 MG TABLET Take 1 tablet (10 mg) by mouth every 6 hours for 7 days. ONDANSETRON ODT (ZOFRAN-ODT) 4 MG DISINTEGRATING TABLET 4 mg. OXYCODONE (ROXICODONE) 5 MG IMMEDIATE RELEASE TABLET Take 1 tablet (5 mg) by mouth every 8 hours as needed for severe pain (7-10). PANTOPRAZOLE (PROTONIX) 40 MG EC TABLET Take 40 mg by mouth. PAROXETINE (PAXIL) 10 MG TABLET TAKE 1 TABLET (10 MG) BY MOUTH DAILY. PROMETHAZINE (PHENERGAN) 25 MG TABLET 25 mg. SUMATRIPTAN SUCCINATE 6 MG/0.5ML SOLUTION CARTRIDGE Inject 6 mg under the skin. TOPIRAMATE (TOPAMAX) 25 MG TABLET Take 25 mg by mouth twice a day. ALLERGIES Fentanyl, Iodine, Metronidazole, Salicylates, Cephalexin, Gadolinium derivatives, Iodinated contrast media, Naproxen, Nsaids, Ondansetron, Penicillins, Promethazine, Toradol [ketorolac tromethamine], Chlorhexidine, Ciprofloxacin, and Dicyclomine FAMILY HISTORY Family History[3] SOCIAL HISTORY Social History[4] SCREENINGS PHYSICAL EXAM ED Triage Vitals [02/24/25 1112] Temp Heart Rate Resp BP 36.4 C (97.5 F) 94 16 (!) 135/99 SpO2 Temp Source Heart Rate Source Patient Position 98 % Temporal Monitor -- BP Location FiO2 (%) -- -- Physical Exam Vitals and nursing note reviewed. Constitutional: General: She is not in acute distress. Appearance: Normal appearance. She is obese. She is not ill-appearing or toxic-appearing. HENT: Head: Normocephalic and atraumatic. Right Ear: External ear normal. Left Ear: External ear normal. Mouth/Throat: Mouth: Mucous membranes are moist. Pharynx: Oropharynx is clear. Eyes: Extraocular Movements: Extraocular movements intact. Conjunctiva/sclera: Conjunctivae normal. Pupils: Pupils are equal, round, and reactive to light. Cardiovascular: Rate and Rhythm: Normal rate and regular rhythm. Pulses: Normal pulses. Heart sounds: Normal heart sounds. No murmur heard. Pulmonary: Effort: Pulmonary effort is normal. No respiratory distress. Breath sounds: Normal breath sounds. No stridor. No wheezing or rhonchi. Musculoskeletal: General: No swelling, tenderness, deformity or signs of injury. Normal range of motion. Cervical back: Normal range of motion and neck supple. No rigidity or tenderness. Lymphadenopathy: Cervical: No cervical adenopathy. Skin: General: Skin is warm and dry. Capillary Refill: Capillary refill takes less than 2 seconds. Coloration: Skin is not jaundiced or pale. Findings: No bruising or erythema. Neurological: General: No focal deficit present. Mental Status: She is alert and oriented to person, place, and time. Mental status is at baseline. Cranial Nerves: No cranial nerve deficit. Sensory: No sensory deficit. Motor: No weakness. Coordination: Coordination normal. Psychiatric: Mood and Affect: Mood normal. DIAGNOSTIC RESULTS Procedures/EKG: EKG was reviewed by myself. Physician EKG interpretation can be found in [facility] RADIOLOGY (Per Emergency Physician): Interpretation per the Radiologist below, if available at the time of this note: No orders to display ED BEDSIDE ULTRASOUND: Performed by ED Physician - none LABS: Labs Reviewed COMPREHENSIVE METABOLIC PANEL - Abnormal Result Value SODIUM 137 POTASSIUM 4.0 CHLORIDE 105 CARBON DIOXIDE 22 ANION GAP 10 UREA NITROGEN 12 CREATININE 1.18 (*) GLUCOSE 97 CALCIUM 9.5 AST (SGOT) 19 ALT 21 ALKALINE PHOSPHATASE 130 ALBUMIN 4.2 BILIRUBIN, TOTAL 0.9 TOTAL PROTEIN 7.7 eGFR 58.2 (*) COMPLETE URINALYSIS WITH REFLEX TO CULTURE - Abnormal Color, Urine Yellow Clarity, Urine Turbid (*) pH, Urine 6.0 Leukocytes, Urine 500 (*) Nitrite, Urine Negative Protein, Urine 20 (*) Glucose, Urine Normal Bilirubin, Urine Negative Ketones, Urine Negative Urobilinogen, Urine Normal Blood, Urine 0.06 (*) RBC, Urine 51-100 (*) WBC, Urine >100 (*) Squamous Epithelial, Urine 11-25 (*) Bacteria, Urine Moderate (*) Mucus, Urine Many (*) SPECIFIC GRAVITY OF URINE (NUMERIC) 1.019 Narrative: This specimen has been reflexed to urine culture. LIPASE - Normal LIPASE 18 CBC (HEMOGRAM) - Normal Auto WBC 9.9 RBC 4.62 Hemoglobin 13.9 Hematocrit 41.6 MCV 90.0 MCH 30.1 MCHC 33.4 RDW 12.6 Platelets 257 MPV 10.6 VAGINITIS PANEL MVP PCR CHLAMYDIA/GONORRHEA URINE CULTURE All other labs were within normal range or not returned as of this dictation. EMERGENCY DEPARTMENT COURSE and DIFFERENTIAL DIAGNOSIS/MDM: Vitals: Vitals: 02/24/25 1112 02/24/25 1112 BP: (!) 135/99 Pulse: 94 Resp: 16 Temp: 36.4 C (97.5 F) TempSrc: Temporal SpO2: 98% Weight: 88.9 kg (196 lb) Height: 1.549 m (5' 1) Diagnoses as of 02/24/25 1327 Lower abdominal pain Chronic pelvic pain in female Urinary tract infection without hematuria, site unspecified The patient presented with chief complaint of with chief complaint of lower abdominal pain/pelvic pain has been ongoing since December. She has been seen for this multiple times in the emergency room since December, known to . Dr. Sunny Story has a history of chronic pelvic pain originally seen in November in the emergency department, seen in December, subsequently had 3 visits in December for this, was seen at [facility] emergency room yesterday had labs and a CAT scan that were unremarkable. She called the call center yesterday and was offered an appointment the same day and then told them she had no money or insurance and then hung up on the call center. She states she was post to go to a pelvic pain specialist after being referred by Dr. Hearn but could not or cannot because she does not have insurance. She had another phone encounter yesterday where she screamed at the nurses several times and then eventually hung up on them also. She states she is having white vaginal discharge but she is also had a total hysterectomy. She had labs and a CAT scan yesterday at [facility] ER that were unremarkable. She has has had surgeries for a cyst in the past and for her hysterectomy.. The differential diagnosis associated with this patient's presentation includes chronic abdominal pain, chronic pelvic pain, adhesions, STD, UTI, bacterial vaginosis. Our workup consisted of ordering/reviewing: Gonorrhea/chlamydia, vaginitis panel, CBC, CMP, lipase, urinalysis. Diagnostic tests considered but not performed: CT abdomen pelvis with the patient had one performed yesterday at [facility] which was unremarkable To aid in management, I performed an independent interpretation of none. I also reviewed external records from [facility] [place]. I discussed their care with Dr. Story is familiar with the patient she never followed up with chronic pelvic pain specialist, there is no clinical indication for admission at this time we will give her a short course of pain medication treat her urinary tract infection he will see her next week. Consideration for escalation of care with: none. The patient will be Discharged. Patient is in agreement with this plan. Medications morphine injection 4 mg (4 mg IntraVENous Given 02/24/25 1150) sulfamethoxazole-trimethoprim (Bactrim DS) 800-160 MG per tablet 1 tablet (1 tablet Oral Given 02/24/25 1234) REVAL: CRITICAL CARE TIME None CONSULTS: None PROCEDURES: Unless otherwise noted below, none Procedures Patients symptoms are consistent with sepsis, severe sepsis, or septic shock (If yes use .sepsiscoremeasure): no FINAL IMPRESSION 1. Lower abdominal pain 2. Chronic pelvic pain in female 3. Urinary tract infection without hematuria, site unspecified DISPOSITION Discharge 02/24/2025 01:25:06 PM PATIENT REFERRED TO: Silverio Haley [address] [facility] [id number] Schedule an appointment as soon as possible for a visit Sunny Story MD [address] [place] [address], [address] [facility] [phone] Schedule an appointment as soon as possible for a visit DISCHARGE MEDICATIONS: New Prescriptions OXYCODONE-ACETAMINOPHEN (PERCOCET) 5-325 MG TABLET Take 1 tablet by mouth every 6 hours as needed for severe pain (7-10) for up to 3 days. SULFAMETHOXAZOLE-TRIMETHOPRIM (BACTRIM DS) 800-160 MG TABLET Take 1 tablet by mouth 2 times daily for 10 days. (Comment: Please note this report has been produced using speech recognition software and may contain errors related to that system including errors in grammar, punctuation, and spelling, as well as words and phrases that may be inappropriate. If there are any questions or concerns please feel free to contact the dictating provider for clarification.) Mac Harding APRN - CLASSROOM TEACHER (electronically signed) Emergency Medicine Provider [1] Past Medical History: Diagnosis Date Cancer (CMS/HCC) (HCC) Chicken pox High cholesterol History of blood transfusion 2006 Kidney stones Right ureteral calculus 09/05/2019 [2] Past Surgical History: Procedure Laterality Date CHOLECYSTECTOMY CYSTOSCOPY 09/05/2019 cystoscopy, bilateral retrograde pyelograms, right ureteroscopy EXPLORATORY LAPAROTOMY Laparotomy RSO EXPLORATORY LAPAROTOMY 12/02/2016 exp lap, extensive lysis of adhesions, left ureterlysis and excision of left pelvic sidewall HYSTERECTOMY 2006 BSO for endometrisos LAPAROSCOPY DIAGNOSTIC / BIOPSY / ASPIRATION / LYSIS LIVER SURGERY 2019 removed cyst URETEROSCOPY Right 09/05/2019 C&P ( normal bilat). Right ureteroscopy-negative ( passessed stones). Ara [3] Family History Problem Relation Name Age of Onset Other (29044) Mother blood clots Hyperlipidemia Mother High Blood Pressure Mother [4] Social History Socioeconomic History Marital status: Tobacco Use Smoking status: Every Day Current packs/day: 0.50 Types: Cigarettes Smokeless tobacco: Never Vaping Use Vaping status: Never Used Substance and Sexual Activity Alcohol use: Yes Alcohol/week: 0.0 standard drinks of alcohol Drug use: Yes Types: Marijuana Comment: occasional gummy Social Drivers of Health Financial Resource Strain: Patient Declined (12/14/2023) Received from [facility] Overall Financial Resource Strain (CARDIA) Difficulty of Paying Living Expenses: Patient declined Food Insecurity: Patient Declined (12/14/2023) Received from [facility] Hunger Vital Sign Worried About Running Out of Food in the Last Year: Patient declined Ran Out of Food in the Last Year: Patient declined Transportation Needs: Patient Declined (12/14/2023) Received from [facility] PRAPARE - Transportation Lack of Transportation (Medical): Patient declined Lack of Transportation (Non-Medical): Patient declined Physical Activity: Patient Declined (12/14/2023) Received from [facility] Exercise Vital Sign Days of Exercise per Week: Patient declined Minutes of Exercise per Session: Patient declined Stress: No Stress Concern Present (11/15/2020) Received from [facility] of Occupational Health - Occupational Stress Questionnaire Feeling of Stress : Only a little Social Connections: Unknown (12/14/2023) Received from [facility] Social Connection and Isolation Panel [NHANES] Active Member of Clubs or Organizations: Patient declined Marital Status: Patient declined Housing Stability: Patient Declined (12/14/2023) Received from [facility] Housing Stability Vital Sign Unable to Pay for Housing in the Last Year: Patient declined Unstable Housing in the Last Year: Patient declined ASHLYN Wood CNP 02/24/25 1327 [facility] 02-24-2025 Telephone encounter Note S: Patient spoke with [facility] nurse regarding pelvic pain and vaginal discharge B: Onset of symptoms/concern ongoing for months A: Patient states back in December she had a vaginal swab and it came back as bacterial infection. Patient states she was never treated for it. A couple weeks ago saw PCP and so was given flagyl and another medication and now pain is worse and vaginal discharge is worse. Went to [place] ER Thursday and was treated for UTI and yeast infection. Yesterday went back to hospital and had CT scan done and nothing looked bad. Patient states she is having so much abdominal pain and discharge is white, slimy and has blood in it. Pain is severe and having a hard time driving. Pain has got worse since being in ER and is a constant pain. Has done heating pad and tylenol. Tylenol is not helping. Not able to sleep or eat because of the pain. R: Patient advised to go to the ER since her pain is worse today. Patient states that the ER does not help her or do anything for her so it would be a waste of time and gas money. Patient states she has no insurance and no money so no one will see her. Spoke with Horace in office at [place] who gave number for financial assistance. This number was provided to patient [phone]. Horace advised to reach out to Dr. Anya Mcdonald. Spoke with Tamara and patient was offered appointment today in [place]. Patient states she cannot come to [place] for an appointment as it is too far away. Patient also states she cannot wait until next week when offered to schedule appointment next week. Patient states she will go to [facility] but she has to be admitted for pain control. Dr. Joyner aware. No further needs at this time. Patient instructed to call back with new or worsening symptoms. Reason for Disposition SEVERE abdominal pain (e.g., excruciating) Protocols used: Vaginal [id number] [facility] 02-24-2025 Telephone encounter Note Patient calls today and demanding to have an appointment with provider. Patient reports that she was seen yesterday at [facility] ER and had a CT scan done. Patient reports that it did not show anything. Patient states that no one is doing anything for her. Patient states that she continues to have a lot abdominal pain and discharge. Patient states that she cannot drive because of pain. Patient states that she cannot get into Gynecology for 2 months even with her having all the pain. Offered to schedule appointment with Aury Aceves today, patient states I don't have any insurance or money and patient hangs up. Paradise Haley RN [facility] 02-23-2025 Hospital Discharg e instructions Patient Education 02/23/2025 10:39:19 Abdominal Pain Abdominal Pain Abdominal pain is pain in the stomach or belly area. Everyone has this pain from time to time. In many cases it goes away on its own. But abdominal pain can sometimes be due to a serious problem, such as appendicitis. So it s important to know when to get help. Causes of abdominal pain There are many possible causes of abdominal pain. Common causes in adults include: Constipation, diarrhea, or gas Stomach acid flowing back up into the esophagus (acid reflux or heartburn) Severe acid reflux, called GERD (gastroesophageal reflux disease) A sore in the lining of the stomach or small intestine (peptic ulcer) Inflammation of the gallbladder, liver, or pancreas Gallstones or kidney stones Appendicitis Intestinal blockage An internal organ pushing through a muscle or other tissue (hernia) Urinary tract infections In women, menstrual cramps, fibroids, ovarian cysts, pelvic inflammatory disease, or endometriosis Inflammation or infection of the intestines, including Crohn's disease and ulcerative colitis Irritable bowel syndrome Diagnosing the cause of abdominal pain Your healthcare provider will give you a physical exam help find the cause of your pain. If needed, you will have tests. Belly pain has many possible causes. So it can be hard to find the reason for your pain. Giving details about your pain can help. Tell your provider where and when you feel the pain, and what makes it better or worse. Also let your provider know if you have other symptoms such as: Fever Tiredness Upset stomach (nausea) Vomiting Changes in bathroom habits Blood in the stool or black, tarry stool Weight loss that you can't explain (involuntary weight loss?) Also report any family history of stomach or intestinal problems, or cancers. Tell your provider about all your alcohol use and drug use. Tell your provider about all medicines you use, including herbs, vitamins, and supplements. Treating abdominal pain Some causes of pain need emergency medical treatment right away. These include appendicitis or a bowel blockage. Other problems can be treated with rest, fluids, or medicines. Your healthcare provider can give you specific instructions for treatment or self-care based on what is causing your pain. If you have vomiting or diarrhea, sip water or other clear fluids. When you are ready to eat solid foods again, start with small amounts of otop-nl-[id number], low-fat foods. These include apple sauce, toast, or crackers. When to get medical care Call 911 or go to the hospital right away if you: Can t pass stool and are vomiting Are vomiting blood or have bloody diarrhea or black, tarry diarrhea Have chest, neck, or shoulder pain Feel like you might pass out Have pain in your shoulder blades with nausea Have sudden, severe belly pain Have new, severe pain unlike any you have felt before Have a belly that is rigid, hard, and hurts to touch Call your healthcare provider if you have: Pain for more than 5 days Bloating for more than 2 days Diarrhea for more than 5 days A fever of 100.4 F (38 C) or higher, or as directed by your healthcare provider Pain that gets worse Weight loss for no reason Continued lack of appetite Blood in your stool How to prevent abdominal pain Here are some tips to help prevent abdominal pain: Eat smaller amounts of food at each meal. Don't eat greasy, fried, or other high-fat foods. Don't eat foods that give you gas. Exercise regularly. Drink plenty of fluids. To help prevent GERD symptoms: Quit smoking. Reduce alcohol and foods that increase stomach acid. Don't use aspirin or swon-[id number]-[id number] pain and fever medicines, if possible. This includes nonsteroidal anti-inflammatory drugs (NSAIDs). Lose excess weight. Finish eating at least 2 hours before you go to bed or lie down. Raise the head of your bed. [phone] [employer] [address] [place] [address], [place] [address]. All rights reserved. This information is not intended as a substitute for professional medical care. Always follow your healthcare professional's instructions. Follow Up Care 02/23/2025 08:41:06 With:SILVERIO HALEY MD Address: [address] [place] [address]- When:2-4 days [facility] 02-23-2025 Note Discharge Instructions Thank you for allowing [place] to assist you with your healthcare needs. The following is important discharge information regarding your hospital visit. Diagnosis from Today's Visit Pelvic pain What to Do Next Instructions from Your Care Team No qualifying data available. Post Acute Orders No qualifying data available. You Need to Schedule the Following Appointments Follow Up with SILVERIO HALEY MD When:Within 2-4 days Where:[address] [place] [address]- Allergies Advil Contrast dye Flagyl Motrin NSAIDS Toradol Toradol IV/IM aspirin fentaNYL penicillin Medications Please ask your primary doctor or pharmacist before taking any other medication not listed, including over the counter drugs, herbal medications, vitamins and or supplements as they may interact with your home medications. What How Much When Instructions Last Dose Unchanged acetaminophen-hydrocodone (acetaminophen-hydrocodone 325 mg-5 mg oral tablet) 1 tab(s) by mouth Every 6 hours as needed for for pain Unchanged albuterol (albuterol MDI (90 mcg/ inh) CFC free inhalation aerosol) 1 puff(s) by inhalation Every 4 hours as needed for as needed for wheezing Unchanged ARIPiprazole (ARIPiprazole 10 mg oral tablet) 1 tab(s) by mouth Once a day Unchanged atorvastatin (atorvastatin 20 mg oral tablet) 1 tab(s) by mouth Once a day Unchanged cephalexin (cephalexin 500 mg oral capsule) 1 cap by mouth Every 12 hours Duration: 7 Days Unchanged cholecalciferol (cholecalciferol 125 mcg (5000 intl units) oral capsule) 1 cap by mouth Once a day Unchanged escitalopram (escitalopram 20 mg oral tablet) 1 tab(s) by mouth Once a day Unchanged fluconazole (Diflucan 150 mg oral tablet) 1 tab(s) by mouth Once a day Unchanged gabapentin (gabapentin 400 mg oral capsule) 1 cap by mouth Two (2) times a day Unchanged montelukast (montelukast 10 mg oral tablet) 1 tab(s) by mouth Daily at bedtime Unchanged ondansetron (ondansetron 4 mg oral tablet, disintegrating) 1 tab(s) by mouth Every 8 hours as needed for as needed for nausea/vomiting Unchanged pantoprazole (Protonix 40 mg oral enteric coated tablet) 1 tab(s) by mouth Once a day Unchanged promethazine (promethazine 25 mg oral tablet) 1 tab(s) by mouth Every 8 hours as needed for for nausea/vomiting Unchanged topiramate (topiramate 25 mg oral tablet) 1 tab(s) by mouth Two (2) times a day Unchanged traZODone (traZODone 50 mg oral tablet) 1 tab(s) by mouth Daily at bedtime Please take this list to your next doctor s visit. Bring all medications you take, including over the counter medications, herbals and other supplements with you to your doctor s visit. Patients and families are reminded to discard old lists and to update any records with all medication providers or retail pharmacies. Education Materials Abdominal Pain Abdominal pain is pain in the stomach or belly area. Everyone has this pain from time to time. In many cases it goes away on its own. But abdominal pain can sometimes be due to a serious problem, such as appendicitis. So it s important to know when to get help. Causes of abdominal pain There are many possible causes of abdominal pain. Common causes in adults include: Constipation, diarrhea, or gas Stomach acid flowing back up into the esophagus (acid reflux or heartburn) Severe acid reflux, called GERD (gastroesophageal reflux disease) A sore in the lining of the stomach or small intestine (peptic ulcer) Inflammation of the gallbladder, liver, or pancreas Gallstones or kidney stones Appendicitis Intestinal blockage An internal organ pushing through a muscle or other tissue (hernia) Urinary tract infections In women, menstrual cramps, fibroids, ovarian cysts, pelvic inflammatory disease, or endometriosis Inflammation or infection of the intestines, including Crohn's disease and ulcerative colitis Irritable bowel syndrome Diagnosing the cause of abdominal pain Your healthcare provider will give you a physical exam help find the cause of your pain. If needed, you will have tests. Belly pain has many possible causes. So it can be hard to find the reason for your pain. Giving details about your pain can help. Tell your provider where and when you feel the pain, and what makes it better or worse. Also let your provider know if you have other symptoms such as: Fever Tiredness Upset stomach (nausea) Vomiting Changes in bathroom habits Blood in the stool or black, tarry stool Weight loss that you can't explain (involuntary weight loss?) Also report any family history of stomach or intestinal problems, or cancers. Tell your provider about all your alcohol use and drug use. Tell your provider about all medicines you use, including herbs, vitamins, and supplements. Treating abdominal pain Some causes of pain need emergency medical treatment right away. These include appendicitis or a bowel blockage. Other problems can be treated with rest, fluids, or medicines. Your healthcare provider can give you specific instructions for treatment or self-care based on what is causing your pain. If you have vomiting or diarrhea, sip water or other clear fluids. When you are ready to eat solid foods again, start with small amounts of dyrt-zu-nxnnjr, low-fat foods. These include apple sauce, toast, or crackers. When to get medical care Call 911 or go to the hospital right away if you: Can t pass stool and are vomiting Are vomiting blood or have bloody diarrhea or black, tarry diarrhea Have chest, neck, or shoulder pain Feel like you might pass out Have pain in your shoulder blades with nausea Have sudden, severe belly pain Have new, severe pain unlike any you have felt before Have a belly that is rigid, hard, and hurts to touch Call your healthcare provider if you have: Pain for more than 5 days Bloating for more than 2 days Diarrhea for more than 5 days A fever of 100.4 F (38 C) or higher, or as directed by your healthcare provider Pain that gets worse Weight loss for no reason Continued lack of appetite Blood in your stool How to prevent abdominal pain Here are some tips to help prevent abdominal pain: Eat smaller amounts of food at each meal. Don't eat greasy, fried, or other high-fat foods. Don't eat foods that give you gas. Exercise regularly. Drink plenty of fluids. To help prevent GERD symptoms: Quit smoking. Reduce alcohol and foods that increase stomach acid. Don't use aspirin or vapi-ohl-elisuve pain and fever medicines, if possible. This includes nonsteroidal anti-inflammatory drugs (NSAIDs). Lose excess weight. Finish eating at least 2 hours before you go to bed or lie down. Raise the head of your bed. [id number] [employer] [address] [place] [address]. All rights reserved. This information is not intended as a substitute for professional medical care. Always follow your healthcare professional's instructions. Additional Information VACCINATE! IT SAVES LIVES! Members of the community who have not yet received the COVID-19 vaccine and would like to receive it can visit one of [facility] vaccine clinics. There are many vaccine clinic locations within the [facility]. For locations and available times, please visit [email or web address] [email or web address] It is important to note that some COVID mobile vaccine clinics are held outdoors and may be canceled in rainy or stormy conditions. To learn more about pediatric vaccinations (ages 5-11), we invite you to visit the [facility] webpage. https://www.[facility].org/p ages/1867-Aumpt-Rjtbrebzxff-Freq hhbqln-Nsxpw-Emnwwjcfd.html To learn more about the COVID-19 vaccine, we invite you to visit the CDC website for a list of frequently asked questions. https://www.cdc.gov/coronavirus/ 2019-ncov/vaccines/faq.html [facility] Access Instructions: Stay connected with your healthcare team and access your personal medical information anytime with the [facility] Patient Portal. If you would like a full copy of your medical records please contact the [facility] Medical Records Department Thursday through Thursday between 8a.m. and 4:30p.m. Please follow the directions below to access the portal: 1.Access the email account you provided upon registration to the [facility].2.Look for an invitation email from [facility].3.Open the email and access the invitation link: Accept Invitation to [email or web address]la4.Fill in the required xiong to create your account. Sign into [email or web address] with your username and password that you created in the above steps to stay up to date. You can then view a summary of results, a summary of your visits, and the ability to download your summaries to your computer or send the information securely to a physician. Remember that your healthcare information is confidential, so carefully consider who you will allow to register on the [email or web address] Patient Portal for access to your information. You can also access the [email or web address] Patient Portal on the Million-2-1. Simply click on Health Records under Health Data and then click on the Metaplace logo. HOW TO SAFELY DISPOSE OF PRESCRIPTION MEDICATIONS Please use one of the following methods to safely dispose of your unused medications. 1.Use a drug disposal kit: the drug disposal pouch allows you to safely discard your old and unused drugs. Ask your nurse to give you one when you are discharged.2.Visit a local take-back location: Many local pharmacies and police departments have programs that collect old and unwanted prescription drugs. Call your local pharmacy or go to http://Vidiowiki.Samba Tech/2C6Ur5h to find one close to you.3.Make use of household items: Use cat litter or old coffee grounds to dispose medications if other options are not available. Mix your drugs with these household products, seal them in an airtight container and throw it into the garbage. Call [facility]: [phone] to be sure your drugs can be disposed of in this way. Some medicines may require a different approach.4.Never flush your medications down the toilet. IF YOU HAVE BEEN PRESCRIBED AN OPIOIDS FOR PAIN If you have been prescribed an opioid (such as hydrocodone, oxycodone or morphine), it is critical to understand the possible side effects and risks of opioid pain medications. Even when taken as directed, opioids can have several side effects including: Tolerance, meaning you might need to take more of a medication for the same pain relief. Nausea, vomiting and/or constipation. Sleepiness, dizziness, dry mouth, confusion, depression or itching. Physical dependence, meaning you have withdrawal symptoms when a medication is stopped ? this can develop within a few days. KNOW YOUR RESPONSIBILITIES It is important to know exactly how much and how often to take the opioid pain medications you are prescribed. Never take opioids in higher amounts or more often than prescribed. Do not combine opioids with alcohol or other drugs that cause drowsiness, such as benzodiazepines, also known as benzos, including diazepam and alprazolam, muscle relaxants or sleep aids. Never sell or share prescription opioids. This is illegal. Store opioids in a secure place and out of reach of others (including children, family, friends and visitors). The last page(s) of this document has been signed and retained as a CHART COPY Signatures Patient Education Materials Abdominal Pain Medication Leaflets My discharge plan and instructions have been reviewed and explained to me and I,TOSHIAASHLEYGIOVANNASALLY Jeana understand my current condition and have read and understand these discharge instructions. I have received a written copy of the plan/instructions. If I have questions, I am aware that I should contact my doctor. 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 This exam was performed according to our departmental dose optimization program, and includes the following measures where applicable: automated exposure control, adjustment of the mAs and/or kVp according to patient size and/or exam, and an iterative reconstruction algorithm. FINDINGS: There is a cholecystectomy. There are multiple hepatic cysts. There are a few punctate calcifications in the left kidney. The remaining abdominal organs are unremarkable in appearance. There is a hysterectomy. Bowel is poorly evaluated in the absence of oral contrast. The appendix is not identified. There is no free fluid. IMPRESSION: No significant interval change. Interpreted by: Teo Mcclellan MD Preliminary Report By: Teo Mcclellan MD Electronically signed By Teo Mcclellan MD Dictated Date: 02/23/2025 9:50:56 AM Prelim Date: 02/23/2025 9:53:48 AM Sign Date: 02/23/2025 9:53:48 AM Ordering Provider: ETHAN MUNGUIA-[facility]06-12-2025 Telephone encounter Note* Telephone Encounter - Chanell Friedman RN - 02/23/2025 8:23 AM EDT Pt was seen on 02/14/25 by Merced Hutchinson. She was seen for abd pain, difficulty urinating and foul smelling vaginal discharge. Pt called in again on 02/16/25 reporting worsening symptoms. Pt states she went to [facility] ER and they told her since she was being treated with antibiotics that there was nothing they could do for her and sent her home. Pt calling in today stating her abd cramping and abd pain issevere. States when she urinates, she is only urinating a tiny amount-cannot tell if she is emptying her bladder or not. Pt states she is still having copious amounts of the slimy foul smelling bloody vaginal discharge- states she is filling up pads it is so much. Also states she is having significant burning in her vulva area. 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 Went over these instructions with pt who is very angry and yelled several times that she is not going back to the ER becausethey won't do anything for her. Asked pt if she contacted her souvenir street vendor provider. Pt states she did and they can't get her in for a couple of months. Instructed pt to go to try a [facility] ER. Pt states she has no $ and no gas in her car and won't be able to make it there. States she has not friends that she can borrow $ from. Pt called several times on 02/17 and wanted Merced to call the ER and tell them what to do. Per Merced, she would not beable to do that. Pt wanting to see Merced only and Gretchen [place] and Dr. Haley are all out of the office today. Reiterated to pt several times of the need for her to go to the ER. Pt still refusing and states they won't do anything for her because she is on antibiotics and she has no $ for gas to go to any other ER. Pt hung up on nurse. Pt does not have insurance and new referral was placed yesterday but had a previous referral where she was cleared through 03/08/25 but that referral is now closed. Checked with Financial counselor Ale Clancy who states pt is cleared until 03/09/25. [facility]06-10-2025 Note. MICRO - Microbiology PROCEDURE: Urine Culture [O1 *1] SOURCE: Urine BODY SITE: COLLECTED DATE/TIME: 02/19/2025 10:40 EDT RECEIVED DATE/TIME: 02/19/2025 12:45 EDT START DATE/TIME: 02/19/2025 12:45 EDT FREE TEXT SOURCE: FINAL REPORTS Final Report [] Verified Date/Time/Personnel: 02/21/2025 07:17 EDT >100,000 cfu/ml Mixed growth consistent with normal urogenital pilar. PRELIMINARY REPORTS Preliminary Report [] Verified Date/Time/Personnel: 02/20/2025 09:03 EDT No growth to date Preliminary Report [] Verified Date/Time/Personnel: 02/19/2025 13:59 EDT Specimen received in lab. Order Comments O1: Urine Culture Added by Discern Performing Locations *1: This test was performed at: [facility], [address] [place] [address], [id number] , [facility]06-08-2025 Hospital Discharge instructions Patient Education 02/19/2025 12:35:04 Bladder Infection, Female (Adult) Bladder Infection, Female (Adult) Urine is normally doesn't have any bacteria in it. But bacteria can get into the urinary tract fromthe skin around the rectum. Or they can travel in the blood from elsewhere in the body. Once they are in your urinary tract, they can cause infection in the urethra (urethritis), the bladder (cystitis), or the kidneys (pyelonephritis). The most common place for an infection is in the bladder. This is called a bladder infection. This is one of the most common infections in women. Most bladder infections are easily treated. They are not serious unless the infection spreads to the kidney. The phrases bladder infection, UTI, and cystitis are often used to describe the same thing. But they are not always the same. Cystitis is an inflammation of the bladder. The most common cause of cystitis is an infection. Symptoms The infection causes inflammation in the urethra and bladder. This causes many of the symptoms. Themost common symptoms of a bladder infection are: Pain or burning when urinating Having to urinate more often than usual Urgent need to urinate Only a small amount of urine comes out Blood in urine Abdominal discomfort. This is usually in the lower abdomen above the pubic bone. Cloudy urine Strong- or bad-smelling urine Unable to urinate (urinary retention) Unable to hold urine in (urinary incontinence) Fever Loss of appetite Confusion (in older adults) Causes Bladder infections are not contagious. You can't get one from someone else, from a toilet seat, or from sharing a bath. The most common cause of bladder infections is bacteria from the bowels. The bacteria get onto the skin around the opening of the urethra. From there, they can get into the urine and travel up to thebladder, causing inflammation and infection. This usually happens because of: Wiping improperly after urinating. Always wipe from front to back. Bowel incontinence Procedures such as having a catheter inserted Older age Not emptying your bladder. This can allow bacteria a chance to grow in your urine. Dehydration Constipation Sex Use of a diaphragm for control Treatment Bladder infections are diagnosed by a urine test. They are treated with antibiotics and usually clear up quickly without complications. Treatment helps prevent a more serious kidney infection. Medicines Medicines can help in the treatment of a bladder infection: Take antibiotics until they are used up, even if you feel better. It is important to finish them tomake sure the infection has cleared. You can use acetaminophen or ibuprofen for pain, fever, or discomfort, unless another medicine was prescribed. If you have chronic liver or kidney disease, talk with your healthcare provider before using these medicines. Also talk with your provider if you've ever had a stomach ulcer or gastrointestinal bleeding, or are taking blood-thinner medicines. If you are given phenazopydridine to reduce burning with urination, it will cause your urine to become a bright orange color. This can stain clothing. Care and prevention These self-care steps can help prevent future infections: Drink plenty of fluids to prevent dehydration and flush out your bladder. Do this unless you must restrict fluids for other health reasons, or your doctor told you not to. Proper cleaning after going to the bathroom is important. Wipe from front to back after using the toilet to prevent the spread of bacteria. Urinate more often. Don't try to hold urine in for a long time. Wear loose-fitting clothes and cotton underwear. Avoid tight-fitting pants. Improve your diet and prevent constipation. Eat more fresh fruit and vegetables, and fiber, and less junk and fatty foods. Avoid sex until your symptoms are gone. Avoid caffeine, alcohol, and spicy foods. These can irritate your bladder. Urinate right after intercourse to flush out your bladder. If you use control pills and have frequent bladder infections, discuss it with your doctor. Follow-up care Call your healthcare provider if all symptoms are not gone after 3 days of treatment. This is especially important if you have repeat infections. If a culture was done, you will be told if your treatment needs to be changed. If directed, you cancall to find out the results. If X-rays were done, you will be told if the results will affect your treatment. Call 911 Call 911 if any of the following occur: Trouble breathing Hard to wake up or confusion Fainting or loss of consciousness Rapid heart rate When to seek medical advice Call your healthcare provider right away if any of these occur: Fever of 100.4 F (38.0 C) or higher, or as directed by your healthcare provider Symptoms are not better by the third day of treatment Back or belly (abdominal) pain that gets worse Repeated vomiting, or unable to keep medicine down Weakness or dizziness Vaginal discharge Pain, redness, or swelling in the outer vaginal area (labia) [id number] [employer] [address] [place] [address], [place] [address]. All rights reserved. This information is not intended as a substitute for professional medical care. Always follow yourhealthcare professional's instructions. Follow Up Care 02/19/2025 10:32:20 With:Go to emergency room if symptoms worsen Address:Unknown When:2-4 days With:SILVERIO HALEY MD Address: [address] [place], [place] [address]- When:2-4 days [facility] 06-08-2025 Emergency department Discharge summary Discharge Instructions Thank you for allowing [facility] to assist you with your healthcare needs. The following is importantdischarge information regarding your hospital visit. Diagnosis from Today's Visit Trichomoniasis UTI (urinary tract infection) Yeast infection What to Do Next Instructions from Your Care Team Please take antibiotics as prescribed. You are prescribed an additional dose of Diflucan which you can take towards the end of your antibiotic prescription to help prevent further yeast infection from developing. You are also given a one- time dose of medication to treat trichomonas as the metronidazole that you are currently taking had not resolved the trichomonas in your urine. No qualifying data available. Post Acute Orders No qualifying data available. You Need to Schedule the Following Appointments Follow Up with Go to emergency room if symptoms worsen When:Within 2-4 days Follow Up with SILVERIO HALEY MD When:Within 2-4 days Where:[address] [place] [address]- Allergies Advil Contrast dye Flagyl Motrin NSAIDS Toradol Toradol IV/IM aspirin fentaNYL penicillin Medications Please ask your primary doctor or pharmacist before taking any other medication not listed, including over the counter drugs, herbal medications, vitamins and or supplements as they may interact withyour home medications. What How Much When Instructions Last Dose New cephalexin (cephalexin 500 mg oral capsule) 1 cap by mouth Every 12 hours Duration: 7 Days Printed Prescription New fluconazole (Diflucan 150 mg oral tablet) 1 tab(s) by mouth Once a day Printed Prescription New phenazopyridine (Azo-Standard 95 mg oral tablet) 1 tab(s) by mouth Three (3) times a day Duration: 3 Days Printed Prescription Unchanged acetaminophen-hydrocodone (acetaminophen-hydrocodone 325 mg-5 mg oral tablet) 1 tab(s) by mouth Every 6 hours as needed for for pain Unchanged albuterol (albuterol MDI (90 mcg/ inh) [facility] free inhalation aerosol) 1 puff(s) by inhalation Every 4 hours as needed for as needed for wheezing Unchanged ARIPiprazole (ARIPiprazole 10 mg oral tablet) 1 tab(s) by mouth Once a day Unchanged atorvastatin (atorvastatin 20 mg oral tablet) 1 tab(s) by mouth Once a day Unchanged cholecalciferol (cholecalciferol 125 mcg (5000 intl units) oral capsule) 1 cap by mouth Once a day Unchanged escitalopram (escitalopram 20 mg oral tablet) 1 tab(s) by mouth Once a day Unchanged gabapentin (gabapentin 400 mg oral capsule) 1 cap by mouth Two (2) times a day Unchanged montelukast (montelukast 10 mg oral tablet) 1 tab(s) by mouth Daily at bedtime Unchanged ondansetron (ondansetron 4 mg oral tablet, disintegrating) 1 tab(s) by mouth Every 8 hours as needed for as needed for nausea/vomiting Unchanged pantoprazole (Protonix 40 mg oral enteric coated tablet) 1 tab(s) by mouth Once a day Unchanged promethazine (promethazine 25 mg oral tablet) 1 tab(s) by mouth Every 8 hours as needed for for nausea/vomiting Unchanged topiramate (topiramate 25 mg oral tablet) 1 tab(s) by mouth Two (2) times a day Unchanged traZODone (traZODone 50 mg oral tablet) 1 tab(s) by mouth Daily at bedtime Please take this list to your next doctor s visit. Bring all medications you take, including over the counter medications, herbals and other supplements with you to your doctor s visit. Patients and families are reminded to discard old lists and to update any records with all medication providers or retail pharmacies. Medication Leaflets cephalexin (sef a EMILY in) What is the most important information I should know about cephalexin? You should not use this medicine if you are allergic to cephalexin or to similar antibiotics, such as Ceftin, Cefzil, Omnicef, and others. Tell your doctor if you are allergic to any drugs, especially penicillins or other antibiotics. What is cephalexin? Cephalexin is a cephalosporin (SEF a low spor in) antibiotic that is used to treat bacterial infections of the lungs, ear, skin, bones, bladder, and kidneys. Cephalexin is used to treat infections in adults and children who are at least 1 year old. Cephalexin may also be used for purposes not listed in this medication guide. What should I discuss with my healthcare provider before taking cephalexin? You should not use this medicine if you are allergic to cephalexin or any other cephalosporin antibiotic (cefdinir, cefadroxil, cefoxitin, cefprozil, ceftriaxone, cefuroxime, Omnicef, and others). Tell your doctor if you have ever had: an allergy to any drug (especially penicillin); liver or kidney disease; or intestinal problems, such as colitis. The liquid form of cephalexin may contain sugar. This may affect you if you have diabetes. Tell your doctor if you are or breast-feeding. How should I take cephalexin? Follow all directions on your prescription label and read all medication guides or instruction sheets. Use the medicine exactly as directed. Do not use cephalexin to treat any condition that has not been checked by your doctor. Measure liquid medicine carefully. Use the dosing syringe provided, or use a medicine dose-measuring device (not a kitchen spoon). Use this medicine for the full prescribed length of time, even if your symptoms quickly improve. Skipping doses can increase your risk of infection that is resistant to medication. Cephalexin will not treat a viral infection such as the flu or a common cold. Do not share cephalexin with another person, even if they have the same symptoms you have. This medicine can affect the results of certain medical tests. Tell any doctor who treats you that you are using cephalexin. Store the tablets and capsules at room temperature away from moisture, heat, and light. Store the liquid medicine in the refrigerator. Throw away any unused liquid after 14 days. What happens if I miss a dose? Take the medicine as soon as you can, but skip the missed dose if it is almost time for your next dose. Do not take two doses at one time. What happens if I overdose? Seek emergency medical attention or call the Poison Help line at . Overdose symptoms may include nausea, vomiting, stomach pain, diarrhea, and blood in your urine. What should I avoid while taking cephalexin? Antibiotic medicines can cause diarrhea, which may be a sign of a new infection. If you have diarrhea that is watery or bloody, call your doctor before using anti-diarrhea medicine. What are the possible side effects of cephalexin? Get emergency medical help if you have signs of an allergic reaction (hives, difficult breathing, swelling in your face or throat) or a severe skin reaction (fever, sore throat, burning eyes, skin pain, red or purple skin rash with blistering and peeling). Call your doctor at once if you have: severe stomach pain, diarrhea that is watery or bloody (even if it occurs months after your last dose); unusual tiredness, feeling light-headed or short of breath; easy bruising, unusual bleeding, purple or red spots under your skin; a seizure; pale skin, cold hands and feet; yellowed skin, dark colored urine; fever, weakness; or pain in your side or lower back, painful urination. Common side effects may include: diarrhea; nausea, vomiting; indigestion, stomach pain; or vaginal itching or discharge. This is not a complete list of side effects and others may occur. Call your doctor for medical advice about side effects. You may report side effects to FDA at 9-391-NNV-6293. What other drugs will affect cephalexin? Tell your doctor about all your other medicines, especially: metformin; or probenecid. This list is not complete. Other drugs may affect cephalexin, including prescription and hrol-aei-hvfpwmf medicines, vitamins, and herbal products. Not all possible drug interactions are listed here. Where can I get more information? Your pharmacist can provide more information about cephalexin. Remember, keep this and all other medicines out of the reach of children, never share your medicines with others, and use this medication only for the indication prescribed. Every effort has been made to ensure that the information provided by [employer] is accurate, up-to-date, and complete, but no guarantee is made to that effect. Drug information contained herein may be time sensitive. [employer] information has been compiled for use by healthcare practitioners and consumers in the [place] and therefore [employer] does not warrant that uses outside of the [place] are appropriate, unless specifically indicated otherwise. [employer] drug information does not endorse drugs, diagnose patients or recommend therapy. [employer] drug information isan informational resource designed to assist licensed healthcare practitioners in caring for their p atients and/or to serve consumers viewing this service as a supplement to, and not a substitute for, the expertise, skill, knowledge and judgment of healthcare practitioners. The absence of a warningfor a given drug or drug combination in no way should be construed to indicate that the drug or drug combination is safe, effective or appropriate for any given patient. [facility] does not assume any responsibility for any aspect of healthcare administered with the aid of information [facility] provides. The information contained herein is not intended to cover all possible uses, directions, precautions, warnings, drug interactions, allergic reactions, or adverse effects. If you have questions about the drugs you are taking, check with your doctor, nurse or pharmacist. Copyright 5414-9812 [employer]. Version: .. Revision Date: 04/15/2023. phenazopyridine (fen AY fredis PIR i juan carlos) AZO Urinary Pain Relief, AZO Urinary Pain Relief Max Strength, Azo-Standard, Baridium, Prodium, Pyridium, Uricalm, Urinary Pain Relief Maximum Strength, Uristat, Uristat Ultra What is the most important information I should know about phenazopyridine? You should not use phenazopyridine if you have kidney disease. What is phenazopyridine? Phenazopyridine is a pain reliever that affects the lower part of your urinary tract (bladder and urethra). Phenazopyridine is used to treat urinary symptoms such as pain or burning, increased urination, andincreased urge to urinate. These symptoms can be caused by infection, injury, surgery, catheter, orother conditions that irritate the bladder. Phenazopyridine will treat urinary symptoms, but this medication will not treat a urinary tract infection.. Take any antibiotic that your doctor prescribes to treat an infection. Phenazopyridine may also be used for purposes not listed in this medication guide. What should I discuss with my health care provider before taking phenazopyridine? You should not use phenazopyridine if you are allergic to it, or if you have kidney disease. To make sure phenazopyridine is safe for you, tell your doctor if you have: liver disease; diabetes; or a genetic enzyme deficiency called fpigsqz-2-ahrnrmjna dehydrogenase (G6PD) deficiency. FDA category B. Phenazopyridine is not expected to harm an unborn baby. Do not use this medicine without a doctor's advice if you are . It is not known whether phenazopyridine passes into breast milk or if it could harm a nursing baby.Do not use this medicine without a doctor's advice if you are breast-feeding a baby. How should I take phenazopyridine? Use exactly as directed on the label, or as prescribed by your doctor. Do not use in larger or smaller amounts or for longer than recommended. Take phenazopyridine after meals. Drink plenty of liquids while you are taking phenazopyridine. Phenazopyridine will most likely darken the color of your urine to an orange or red color. This is a normal effect and is not harmful. Darkened urine may also cause stains to your underwear that may be permanent. Phenazopyridine can also permanently stain soft contact lenses, and you should not wear them while taking this medicine. Do not use phenazopyridine for longer than 2 days unless your doctor has told you to. This medication can cause unusual results with urine tests. Tell any doctor who treats you that youare using phenazopyridine. Store at room temperature away from moisture and heat. What happens if I miss a dose? Take the missed dose as soon as you remember. Skip the missed dose if it is almost time for your next scheduled dose. Do not take extra medicine to make up the missed dose. What happens if I overdose? Seek emergency medical attention or call the Poison Help line at . What should I avoid while taking phenazopyridine? Do not use this medication while wearing soft contact lenses. Phenazopyridine can permanently discolor soft contact lenses. What are the possible side effects of phenazopyridine? Get emergency medical help if you have any of these signs of an allergic reaction: hives; difficultbreathing; swelling of your face, lips, tongue, or throat. Stop using phenazopyridine and call your doctor at once if you have: little or no urinating; swelling, rapid weight gain; confusion, loss of appetite, pain in your side or lower back; fever, pale or yellowed skin, stomach pain, nausea and vomiting; or blue or purple appearance of your skin. Common side effects may include: headache; dizziness; or upset stomach. This is not a complete list of side effects and others may occur. Call your doctor for medical advice about side effects. You may report side effects to FDA at 0-549-RWL-1435. What other drugs will affect phenazopyridine? Other drugs may interact with phenazopyridine, including prescription and jquh-wxj-jvuhgef medicines, vitamins, and herbal products. Tell each of your health care providers about all medicines you use now and any medicine you start or stop using. Where can I get more information? Your pharmacist can provide more information about phenazopyridine. Remember, keep this and all other medicines out of the reach of children, never share your medicines with others, and use this medication only for the indication prescribed. Every effort has been made to ensure that the information provided by [employer] is accurate, up-to-date, and complete, but no guarantee is made to that effect. Drug information contained herein may be time sensitive. [employer] information has been compiled for use by healthcare practitioners and consumers in the [place] and therefore [employer] does not warrant that uses outside of the [place] are appropriate, unless specifically indicated otherwise. [employer] drug information does not endorse drugs, diagnose patients or recommend therapy. [employer] drug information isan informational resource designed to assist licensed healthcare practitioners in caring for their p atients and/or to serve consumers viewing this service as a supplement to, and not a substitute for, the expertise, skill, knowledge and judgment of healthcare practitioners. The absence of a warningfor a given drug or drug combination in no way should be construed to indicate that the drug or drug combination is safe, effective or appropriate for any given patient. [employer] does not assume any responsibility for any aspect of healthcare administered with the aid of information [employer] provides. The information contained herein is not intended to cover all possible uses, directions, precautions, warnings, drug interactions, allergic reactions, or adverse effects. If you have questions about the drugs you are taking, check with your doctor, nurse or pharmacist. Copyright 6777-7252 [employer]. Version: 5.01. Revision Date: 04/21/2023. fluconazole (oral/injection) (floo KOE na zole) Diflucan What is the most important information I should know about fluconazole? Tell your doctor about all your current medicines and any you start or stop using. Many drugs can interact, and some drugs should not be used together. What is fluconazole? Fluconazole is an antifungal medicine that is used to treat infections caused by fungus, which can invade any part of the body including the mouth, throat, esophagus, lungs, bladder, genital area, and the blood. Fluconazole is also used to prevent fungal infection in people who have a weak immune system causedby cancer treatment, bone marrow transplant, or diseases such as AIDS. Fluconazole is also used to treat a certain type of meningitis in people with HIV or AIDS. Fluconazole may also be used for purposes not listed in this medication guide. What should I discuss with my healthcare provider before receiving fluconazole? You should not use fluconazole if you are allergic to it. Some drugs should not be used with fluconazole. Your treatment plan may change if you also use: lemborexant, abrocitinib, theophylline, fentanyl, alfentanil, methadone, pimozide, tofacitinib, tolvaptan, or a vitamin A supplement; an antibiotic, antifungal, or antiviral medicine; a blood thinner; cancer medicine; cholesterol medication; oral diabetes medicine; heart or blood pressure medication; medicine for malaria or tuberculosis; medicine to prevent organ transplant rejection; medicine to treat depression or mental illness; an NSAID (nonsteroidal anti-inflammatory drug); seizure medicine; or steroid medicine. Tell your doctor if you have ever had: liver or kidney disease; low levels of potassium in your blood; heart problems; or if you are allergic to other antifungal medicine (such as ketoconazole, itraconazole, miconazole, posaconazole, voriconazole, and others). The liquid form of fluconazole contains sucrose. Talk to your doctor before taking this form of fluconazole if you have a problem digesting sugars or milk. May harm an unborn baby. Use effective control while using fluconazole and for at least 1 week after your last dose. Tell your doctor if you become . Ask a doctor if it is safe to breastfeed while using this medicine. How is fluconazole given? Follow all directions on your prescription label and read all medication guides or instruction sheets. Use the medicine exactly as directed. Your dose will depend on the infection you are treating. Vaginal infections are often treated with only one pill. For other infections, your first dose may be a double dose. Carefully follow your doctor's instructions. Fluconazole oral is taken by mouth. Fluconazole injection is given as an infusion into a vein. You may take fluconazole oral with or without food. Shake the oral suspension (liquid) before you measure a dose. Use the dosing syringe provided, or use a medicine dose-measuring device (not a kitchen spoon). Fluconazole injection is given as an infusion into a vein. A healthcare provider will give your first dose and may teach you how to properly use the medication by yourself. Prepare an injection only when you are ready to give it. Do not use if the medicine looks cloudy, has changed colors, or has particles in it. Call your pharmacist for new medicine. Use fluconazole for the full prescribed length of time, even if your symptoms quickly improve. Skipping doses can increase your risk of infection that is resistant to medication. Fluconazole will nottreat a viral infection such as the flu or a common cold. Call your doctor if your symptoms do not improve, or if they get worse. Store at room temperature away from moisture and heat. Do not freeze. You may store the oral suspension between 86 F (30 C) and 41 F (5 C), but do not allow it to freeze. Throw away any leftover liquid that is more than 2 weeks old. What happens if I miss a dose? Use the medicine as soon as you can, but skip the missed dose if it is almost time for your next dose. Do not use two doses at one time. What happens if I overdose? Seek emergency medical attention or call the Poison Help line at . Overdose symptoms may include confusion or unusual thoughts or behavior. What should I avoid while using fluconazole? Avoid driving or hazardous activity until you know how this medicine will affect you. Your reactions could be impaired. What are the possible side effects of fluconazole? Get emergency medical help if you have signs of an allergic reaction (hives, difficult breathing, swelling in your face or throat) or a severe skin reaction (fever, sore throat, burning eyes, skin pain, red or purple skin rash with blistering and peeling). Call your doctor at once if you have: fast or pounding heartbeats, fluttering in your chest, shortness of breath, and sudden dizziness (like you might pass out); seizure (convulsions); skin rash or skin lesions; decreased adrenal gland hormones--nausea, vomiting, stomach pain, loss of appetite, feeling tired or light-headed, muscle or joint pain, skin discoloration, craving salty foods; or liver problems--loss of appetite, stomach pain (upper right side), tiredness, itching, dark urine, jackie-colored stools, jaundice (yellowing of the skin or eyes). Common side effects may include: nausea, stomach pain, diarrhea, upset stomach; headache; dizziness; or changes in your sense of taste. This is not a complete list of side effects and others may occur. Call your doctor for medical advice about side effects. You may report side effects to FDA at 0-187-HQW-3005. What other drugs will affect fluconazole? Sometimes it is not safe to use certain medications at the same time. Some drugs can affect your blood levels of other drugs you take, which may increase side effects or make the medications less effective. Fluconazole can cause a serious heart problem. Your risk may be higher if you also use certain other medicines for infections, asthma, heart problems, high blood pressure, depression, mental illness,cancer, malaria, or HIV. Many drugs can affect fluconazole, and some drugs should not be used at the same time. Tell your doctor about all your current medicines and any medicine you start or stop using. This includes prescription and hrir-cyv-bxittdd medicines, vitamins, and herbal products. Not all possible interactions are listed here. Where can I get more information? Your doctor or pharmacist can provide more information about fluconazole. Remember, keep this and all other medicines out of the reach of children, never share your medicines with others, and use this medication only for the indication prescribed. Every effort has been made to ensure that the information provided by [employer] is accurate, up-to-date, and complete, but no guarantee is made to that effect. Drug information contained herein may be time sensitive. [employer] information has been compiled for use by healthcare practitioners and consumers in the [place] and therefore [employer] does not warrant that uses outside of the [place] are appropriate, unless specifically indicated otherwise. [employer] drug information does not endorse drugs, diagnose patients or recommend therapy. [employer] drug information isan informational resource designed to assist licensed healthcare practitioners in caring for their p atients and/or to serve consumers viewing this service as a supplement to, and not a substitute for, the expertise, skill, knowledge and judgment of healthcare practitioners. The absence of a warningfor a given drug or drug combination in no way should be construed to indicate that the drug or drug combination is safe, effective or appropriate for any given patient. [employer] does not assume any responsibility for any aspect of healthcare administered with the aid of information [facility] provides. The information contained herein is not intended to cover all possible uses, directions, precautions, warnings, drug interactions, allergic reactions, or adverse effects. If you have questions about the drugs you are taking, check with your doctor, nurse or pharmacist. Copyright 1311-7357 [facility] [employer]. Version: 14.. Revision Date: 10/08/2022. Education [employer] Bladder Infection, Female (Adult) Urine is normally doesn't have any bacteria in it. But bacteria can get into the urinary tract fromthe skin around the rectum. Or they can travel in the blood from elsewhere in the body. Once they are in your urinary tract, they can cause infection in the urethra (urethritis), the bladder (cystitis), or the kidneys (pyelonephritis). The most common place for an infection is in the bladder. This is called a bladder infection. This is one of the most common infections in women. Most bladder infections are easily treated. They are not serious unless the infection spreads to the kidney. The phrases bladder infection, UTI, and cystitis are often used to describe the same thing. But they are not always the same. Cystitis is an inflammation of the bladder. The most common cause of cystitis is an infection. Symptoms The infection causes inflammation in the urethra and bladder. This causes many of the symptoms. Themost common symptoms of a bladder infection are: Pain or burning when urinating Having to urinate more often than usual Urgent need to urinate Only a small amount of urine comes out Blood in urine Abdominal discomfort. This is usually in the lower abdomen above the pubic bone. Cloudy urine Strong- or bad-smelling urine Unable to urinate (urinary retention) Unable to hold urine in (urinary incontinence) Fever Loss of appetite Confusion (in older adults) Causes Bladder infections are not contagious. You can't get one from someone else, from a toilet seat, or from sharing a bath. The most common cause of bladder infections is bacteria from the bowels. The bacteria get onto the skin around the opening of the urethra. From there, they can get into the urine and travel up to thebladder, causing inflammation and infection. This usually happens because of: Wiping improperly after urinating. Always wipe from front to back. Bowel incontinence Procedures such as having a catheter inserted Older age Not emptying your bladder. This can allow bacteria a chance to grow in your urine. Dehydration Constipation Sex Use of a diaphragm for control Treatment Bladder infections are diagnosed by a urine test. They are treated with antibiotics and usually clear up quickly without complications. Treatment helps prevent a more serious kidney infection. Medicines Medicines can help in the treatment of a bladder infection: Take antibiotics until they are used up, even if you feel better. It is important to finish them tomake sure the infection has cleared. You can use acetaminophen or ibuprofen for pain, fever, or discomfort, unless another medicine was prescribed. If you have chronic liver or kidney disease, talk with your healthcare provider before using these medicines. Also talk with your provider if you've ever had a stomach ulcer or gastrointestinal bleeding, or are taking blood-thinner medicines. If you are given phenazopydridine to reduce burning with urination, it will cause your urine to become a bright orange color. This can stain clothing. Care and prevention These self-care steps can help prevent future infections: Drink plenty of fluids to prevent dehydration and flush out your bladder. Do this unless you must restrict fluids for other health reasons, or your doctor told you not to. Proper cleaning after going to the bathroom is important. Wipe from front to back after using the toilet to prevent the spread of bacteria. Urinate more often. Don't try to hold urine in for a long time. Wear loose-fitting clothes and cotton underwear. Avoid tight-fitting pants. Improve your diet and prevent constipation. Eat more fresh fruit and vegetables, and fiber, and less junk and fatty foods. Avoid sex until your symptoms are gone. Avoid caffeine, alcohol, and spicy foods. These can irritate your bladder. Urinate right after intercourse to flush out your bladder. If you use control pills and have frequent bladder infections, discuss it with your doctor. Follow-up care Call your healthcare provider if all symptoms are not gone after 3 days of treatment. This is especially important if you have repeat infections. If a culture was done, you will be told if your treatment needs to be changed. If directed, you cancall to find out the results. If X-rays were done, you will be told if the results will affect your treatment. Call 911 Call 911 if any of the following occur: Trouble breathing Hard to wake up or confusion Fainting or loss of consciousness Rapid heart rate When to seek medical advice Call your healthcare provider right away if any of these occur: Fever of 100.4 F (38.0 C) or higher, or as directed by your healthcare provider Symptoms are not better by the third day of treatment Back or belly (abdominal) pain that gets worse Repeated vomiting, or unable to keep medicine down Weakness or dizziness Vaginal discharge Pain, redness, or swelling in the outer vaginal area (labia) 2787-6920 [employer]. [address] [place] [address] [id number]. All rights reserved. This information is not intended as a substitute for professional medical care. Always follow yourhealthcare professional's instructions. Additional Information VACCINATE! IT SAVES LIVES! Members of the community who have not yet received the COVID-19 vaccine and would like to receive it can visit one of [facility] vaccine clinics. There are many vaccine clinic locations within the [facility]. For locations and available times, please visit [email or web address] It is important to note that some COVID mobile vaccine clinics are held outdoors and may be canceled in rainy or stormy conditions. To learn more about pediatric vaccinations (ages 5-11), we invite you to visit the [facility] webpage. [email or web address] learn more about the COVID-19 vaccine, we invite you to visit the CDC website for a list of frequently asked questions. https://www.cdc.gov/coronavirus/2019-ncov/vaccines/faq.html [facility] Access Instructions: Stay connected with your healthcare team and access your personal medical information anytime with the [facility] Patient Portal. If you would like a full copy of your medical records please contact the [facility] Medical Records Department Thursday through Thursday between 8a.m. and 4:30p.m. Please follow the directions below to access the portal: 1.Access the email account you provided upon registration to the [facility].2.Look for an invitation email from [facility].3.Open the email and access the invitation link: Accept Invitation to [email or web address].Fill in the required xiong to create your account. Sign into [email or web address] with your username and password that you created in the above steps to stay up to date. You can then view a summary of results, a summary of your visits, and the ability to download your summaries to your computer or send the information securely to a physician. Remember that your healthcare information is confidential, so carefully consider who you will allow to register on the [email or web address] Patient Portal for access to your information. You can also access the [email or web address] Patient Portal on the Million-2-1. Simply click on Health Records under [employer] and then click on the Metaplace logo. HOW TO SAFELY DISPOSE OF PRESCRIPTION MEDICATIONS Please use one of the following methods to safely dispose of your unused medications. 1.Use a drug disposal kit: the drug disposal pouch allows you to safely discard your old and unuseddrugs. Ask your nurse to give you one when you are discharged.2.Visit a local take-back location: Many local pharmacies and police departments have programs that collect old and unwanted prescriptiondrugs. Call your local pharmacy or go to [email or web address] [email or web address] to find one close to you.3.Make use of household items: Use cat litter or old coffee grounds to dispose medications if other options arenot available. Mix your drugs with these household products, seal them in an airtight container andthrow it into the garbage. Call [facility]: [phone] to be sure your drugs can be disposed of in this way. Some medicines may require a different approach.4.Never flush your medications down the toilet. IF YOU HAVE BEEN PRESCRIBED AN OPIOIDS FOR PAIN If you have been prescribed an opioid (such as hydrocodone, oxycodone or morphine), it is critical to understand the possible side effects and risks of opioid pain medications. Even when taken as directed, opioids can have several side effects including: Tolerance, meaning you might need to take more of a medication for the same pain relief. Nausea, vomiting and/or constipation. Sleepiness, dizziness, dry mouth, confusion, depression or itching. Physical dependence, meaning you have withdrawal symptoms when a medication is stopped ? this can develop within a few days. KNOW YOUR RESPONSIBILITIES It is important to know exactly how much and how often to take the opioid pain medications you are prescribed. Never take opioids in higher amounts or more often than prescribed. Do not combine opioids with alcohol or other drugs that cause drowsiness, such as benzodiazepines, also known as benzos,including diazepam and alprazolam, muscle relaxants or sleep aids. Never sell or share prescriptionopioids. This is illegal. Store opioids in a secure place and out of reach of others (including children, family, friends and visitors). The last page(s) of this document has been signed and retained as a CHART COPY Signatures Patient Education Materials Bladder Infection, Female (Adult) Medication Leaflets cephalexin, phenazopyridine, fluconazole (oral/injection) My discharge plan and instructions have been reviewed and explained to me and I,SALLY VARGAS understand my current condition and have read and understand these discharge instructions. I have received a written copy of the plan/instructions. If I have questions, I am aware that I should contact my doctor. 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 If sheis not urinating she likely needs one to help decompress the bladder. That would be at the discretion of the ER provider. [facility]06-06-2025 Miscellaneous Notes* Telephone Encounter - Merced Hutchinson APRN.CNP - 02/17/2025 2:44 PM EDT Okay with whatever ER she prefers but I cannot say if she needs or does not need a catheter. If sheis not urinating she likely needs one to help decompress the bladder. That would be at the discretion of the ER provider. * Telephone Encounter - Ivanna Torre RN - 02/17/2025 12:59 PM EDT Patient calls back to let provider know that she will go to the ER only if provider herself calls to say she is coming and to tell the ER staff that she is in pain and she doesn't need a catheter. Patient plans to go to [facility] ER. Attempted to discuss further with patient and she disconnected the line. Ivanna Torre RN * Telephone Encounter - Sallie Benitez LPN - 02/17/2025 11:12 AM EDT Spoke with patient and as soon as she realized who was calling she stated I'm not going to no ER and I am having no catheter inserted unless they put me out. [facility] ER will not do anything for me. Patient did state that she still has yet to urinate and made comment that she was trying to make money. Call ended before suggestion could be made to visit [facility]. * Telephone Encounter - Ashlyn Recio RN - 02/17/2025 11:07 AM EDT Pt called and is notified of providers message and instructions. Pt states she feels the same way. She is in pain and can't pee. She states,I'm not going to [facility] they think I'm just there for pain medicine and treat me like shit. I'm not going to the ER and no one wants to help me. I can't pee. If I I , Oh well.. Then Pt hung up on me. Ashlyn Recio RN * Telephone Encounter - Merced Hutchinson APRN.CNP - 02/17/2025 8:34 AM EDT If pain is that severe and not able to urinate then agree, she needs to return to ER or contact hergyn provider. Since she has been on treatment for a few days, please get an update on how she is feeling/doing today. * Telephone Encounter - Ivanna Torre RN - 02/16/2025 11:56 AM EDT Patient calls back to report that she received a voicemail message from Merced Hutchinson's office that she needed to go to the ER for catheter placement. Reviewed previous notes that say if she is not able to urinate then that would be recommended and patient reports that she is absolutely not going to go to the ER for catheter placement even if she is not able to void. She reports she would have to be knocked out cold before that would happen. Notified that if she is not able to void at all for more than 4 hours and bladder feels full that we would recommend ER evaluation and they would determine further steps (triage protocol recommendation). OV notes say to return if symptoms worsen or fail to improve. Chose not to schedule at this time. Patient just wants Merced to be aware. See below for further detail. Ivanna Torre RN * Telephone Encounter - Ashlyn Recio RN - 02/16/2025 11:32 AM EDT Pt called in and reports the vaginal discharge and pain are worse. She states she can't even urinate it's so painful, she states it feels like it is on fire down there. Pt states she had to leave work early today and will probably lose her job. She states she has been pushing water and cranberry juice. She states the antibiotics are making her stomach worse. Pt reports she went to the [facility] the same night she went in to see Merced Hutchinson POWER HOUSE ENGINEER because of the pain. She states they hooked her up to an IV and did blood work and told her the same thing Merced did that she had a UTI. I let her know if symptoms were getting worse she would need to be seen. Pt just wanted to send message to provider. Pt notified that if she isn't able to urinate to go to the ER as she might need to be straight cathed or have a dooley placed. Please call and advise. Ashlyn Recio RN [facility] Telephone encounter Note * Telephone Encounter - Ivanna Torre RN - 02/17/2025 12:59 PM EDT Patient calls back to let provider know that she will go to the ER only if provider herself calls to say she is coming and to tell the ER staff that she is in pain and she doesn't need a catheter. Patient plans to go to [facility] ER. Attempted to discuss further with patient and she disconnected the line. Ivanna Torre RN [facility]06-06-2025 Telephone encounter Note* Telephone Encounter - Sallie Benitez LPN - 02/17/2025 11:12 AM EDT Spoke with patient and as soon as she realized who was calling she stated I'm not going to no ER and I am having no catheter inserted unless they put me out. [facility] ER will not do anything for me. Patient did state that she still has yet to urinate and made comment that she was trying to make money. Call ended before suggestion could be made to visit [facility]. [facility]06-06-2025 Telephone encounter Note* Telephone Encounter - Ashlyn Recio, VIN - 02/17/2025 11:07 AM EDT Pt called and is notified of providers message and instructions. Pt states she feels the same way. She is in pain and can't pee. She states,I'm not going to [facility] they think I'm just there for pain medicine and treat me like shit. I'm not going to the ER and no one wants to help me. I can't pee. If I I , Oh well.. Then Pt hung up on me. Ashlyn Recio, RN [facility]06-06-2025 Telephone encounter Note* Telephone Encounter - Merced Hutchinson APRN.CNP - 02/17/2025 8:34 AM EDT If pain is that severe and not able to urinate then agree, she needs [facility]. Since she has been on treatment for a few days, please get an update on how she is feeling/doing today. [facility]06-05-2025 Telephone encounter Note* Telephone Encounter - Ivanna Torre RN - 02/16/2025 11:56 AM EDT Patient calls back to report that she received a voicemail message from Merced Hutchinson's office that she needed to go to the ER for catheter placement. Reviewed previous notes that say if she is not able to urinate then that would be recommended and patient reports that she is absolutely not going to go to the ER for catheter placement even if she is not able to void. She reports she would have to be knocked out cold before that would happen. Notified that if she is not able to void at all for more than 4 hours and bladder feels full that we would recommend ER evaluation and they would determine further steps (triage protocol recommendation). OV notes say to return if symptoms worsen or fail to improve. Chose not to schedule at this time. Patient just wants Merced to be aware. See below for further detail. Ivanna Torre RN [facility]06-05-2025 Telephone encounter Note* Telephone Encounter - Ashlyn Recio RN - 02/16/2025 11:32 AM EDT Pt called in and reports the vaginal discharge and pain are worse. She states she can't even urinate it's so painful, she states it feels like it is on fire down there. Pt states she had to leave work early today and will probably lose her job. She states she has been pushing water and cranberry juice. She states the antibiotics are making her stomach worse. Pt reports she went to the [facility] the same night she went in to see Merced Hutchinson POWER HOUSE ENGINEER because of the pain. She states they hooked her up to an IV and did blood work and told her the same thing Merced did that she had a UTI. I let her know if symptoms were getting worse she would need to be seen. Pt just wanted to send message to provider. Pt notified that if she isn't able to urinate to go to the ER as she might need to be straight cathed or have a dooley placed. Please call and advise. Ashlyn Recio RN [facility]06-03-2025 NoteHNO ID: [id number] Author: MERCED HUTCHINSON APRN.CLASSROOM TEACHER Service: ? Author Type: Nurse Practitioner Type: Progress Notes Filed: 02/14/2025 11:38 Note Text: SUBJECTIVE Sally Vargas is a 44 year old female here today for acute concern. Chief Complaint Patient presents with: Abdominal Pain: started on Thursday with slimy foul smelling discharge denies any recent intercourse HPI Sally is a 44-year-old female presenting with dysuria, vaginal discharge, and abdominal cramping. Sally reports onset of symptoms on Thursday, beginning with dysuria and a frequent urge to urinate without burning sensation. She increased her water and cranberry juice intake, but symptoms persisted. On Thursday, she began experiencing abdominal cramping and noticed bloody, malodorous, mucous-like vaginal discharge. She attempted to alleviate symptoms by using a douche and applying Bacteroides, which provided minimal relief. By Thursday, the discharge had increased in volume, soaking through her underwear and pants, necessitating multiple clothing changes and the use of a pad. The discharge was described as slimy, white, and occasionally blood-tinged. On Thursday, Sally attempted to work at [employer] but had to leave early due to severe cramping and worsening pain, described as similar to menstrual cramps, despite being postmenopausal. She denies current menstruation. Last night, the pain became intolerable, and she was advised by a friend to seek emergency care, but she opted to call her doctor instead. She is unable to manage the pain with Tylenol and is concerned about her ability to work. Sally has a history of bacterial vaginosis, diagnosed in December via a vaginal swab, but reports not receiving treatment. She denies any pelvic exam being performed at that time. She also reports a longstanding issue with a painful, enlarging hemorrhoid that bleeds significantly during bowel movements. She has tried various treatments, including hydrocortisone creams and witch amada wipes, without relief. Her medications were reviewed today and her list is now up to date. Medications Current Outpatient Medications Medication Sig topiramate (TOPAMAX) 25 mg tablet Take 1 tablet by mouth two times a day. colestipol (COLESTID) 1 gram tablet Take 1 tablet by mouth two times a day. benzocaine-menthol (CEPACOL) 15-3.6 mg lozg Use 1 Lozenge as instructed every 2 hours as needed. promethazine (PHENERGAN) 25 mg tablet Take 1 tablet by mouth every 8 hours as needed for nausea/vomiting. LORazepam (ATIVAN) 0.5 mg Take 1 tablet by mouth once daily as needed. [facility]. escitalopram oxalate (LEXAPRO) 20 mg tablet Take 1 tablet by mouth once daily. [facility]. ARIPiprazole (ABILIFY) 10 mg tablet Take 1 tablet by mouth once daily. From [facility]. pantoprazole DR (PROTONIX) 40 mg tablet Take 1 tablet by mouth daily before breakfast. Take on empty stomach, 1/2 hr before meal. sodium chloride (SALINE NASAL) 0.65 % nasal spray Use 1 [place] in the nose as needed. etodolac (LODINE) 400 mg tablet Take 1 tablet by mouth two times a day as needed. albuterol HFA (VENTOLIN HFA) 90 mcg/actuation inhaler Inhale 2 Puffs as instructed every 4 hours as needed for wheezing/shortness of breath. Cholecalciferol, Vitamin D3, 50 mcg (2,000 unit) cap Take 1 capsule by mouth once daily. SUMAtriptan (IMITREX STATDOSE PEN) 6 mg/0.5 mL pen Inject 0.5 mL subcutaneously as needed for migraine headache (see administration instructions). May repeat dose after 1 hour if needed. Maximum daily dose is 12 mg per day. diphenhydrAMINE (BENADRYL) 25 mg capsule Take 50 mg by mouth at bedtime as needed. nitrofurantoin monohydrate and macrocrystal (MACROBID) 100 mg capsule Take 1 capsule by mouth two times a day. metroNIDAZOLE (FLAGYL) 500 mg tablet Take 1 tablet by mouth two times a day for 7 days. gabapentin (NEURONTIN) 400 mg capsule Take 1 capsule by mouth every 12 hours for 90 days. No current facility-administered medications for this visit. ALLERGIES Allergen Reactions Aspirin Unknown Penicillins Rash Cephalexin Itching Chlorhexidine Rash Skin rash Ciprofloxacin Rash Unclear if the pruritic areas of rash were related to medication or not, no prior use Iodinated Contrast * Anaphylaxis Toradol [Ketorolac] Rash Asa [Salicylates] Other: See Comments ulcers Contrast Dye [Iodin* Shortness of Breath Dicyclomine Hives Ibuprofen GI Upset ACTIVE PROBLEM LIST Pain of Multiple Sites - 04/11/2021 (Mild priority) Comment: No Narcotics from the Office: Patient has a long standing Hx of complaints of multiple areas of pain with negative work ups. Patient has gone to the ER multiple times for pain medication. Generalized Anxiety Disorder - 03/31/2016 (A priority) Comment: Seeing [facility] center. Reactive Depression - 03/31/2016 (A priority) Comment: Seeing POWER HOUSE ENGINEER at [facility] (more content not included)...[facility]06-03-2025 History of Present illness Narrative* Merced Hutchinson APRN.CLASSROOM TEACHER - 02/14/2025 11:06 AM EDT SUBJECTIVE Sally Vargas is a 44 year old female here today for acute concern. Chief Complaint Patient presents with: Abdominal Pain: started on Thursday with slimy foul smelling discharge denies any recent intercourse HPI Sally is a 44-year-old female presenting with dysuria, vaginal discharge, and abdominal cramping. Sally reports onset of symptoms on Thursday, beginning with dysuria and a frequent urge to urinate without burning sensation. She increased her water and cranberry juice intake, but symptoms persisted. On Thursday, she began experiencing abdominal cramping and noticed bloody, malodorous, mucous-like vaginal discharge. She attempted to alleviate symptoms by using a douche and applying Bacteroides,which provided minimal relief. By Thursday, the discharge had increased in volume, soaking through her underwear and pants, necessitating multiple clothing changes and the use of a pad. The discharge was described as slimy, white, and occasionally blood-tinged. On Thursday, Sally attempted to work at [employer] but had to leave early due to severe cramping and worsening pain, described as similar to menstrual cramps, despite being postmenopausal. She denies current menstruation. Last night, the pain became intolerable, and she was advised by a friend to seek emergency care, but she opted to call her doctor instead. She is unable to manage the pain with Tylenol and is concerned about her ability to work. Sally has a history of bacterial vaginosis, diagnosed in December via a vaginal swab, but reports not receiving treatment. She denies any pelvic exam being performed at that time. She also reports a longstanding issue with a painful, enlarging hemorrhoid that bleeds significantly during bowel movements. She has tried various treatments, including hydrocortisone creams and witch amada wipes, without relief. Her medications were reviewed today and her list is now up to date. Medications Current Outpatient Medications Medication Sig topiramate (TOPAMAX) 25 mg tablet Take 1 tablet by mouth two times a day. colestipol (COLESTID) 1 gram tablet Take 1 tablet by mouth two times a day. benzocaine-menthol (CEPACOL) 15-3.6 mg lozg Use 1 Lozenge as instructed every 2 hours as needed. promethazine (PHENERGAN) 25 mg tablet Take 1 tablet by mouth every 8 hours as needed for nausea/vomiting. LORazepam (ATIVAN) 0.5 mg Take 1 tablet by mouth once daily as needed. [facility]. escitalopram oxalate (LEXAPRO) 20 mg tablet Take 1 tablet by mouth once daily. [facility]. ARIPiprazole (ABILIFY) 10 mg tablet Take 1 tablet by mouth once daily. From [facility]. pantoprazole DR (PROTONIX) 40 mg tablet Take 1 tablet by mouth daily before breakfast. Take on empty stomach, 1/2 hr before meal. sodium chloride (SALINE NASAL) 0.65 % nasal spray Use 1 [place] in the nose as needed. etodolac (LODINE) 400 mg tablet Take 1 tablet by mouth two times a day as needed. albuterol HFA (VENTOLIN HFA) 90 mcg/actuation inhaler Inhale 2 Puffs as instructed every 4 hours asneeded for wheezing/shortness of breath. Cholecalciferol, Vitamin D3, 50 mcg (2,000 unit) cap Take 1 capsule by mouth once daily. SUMAtriptan (IMITREX STATDOSE PEN) 6 mg/0.5 mL pen Inject 0.5 mL subcutaneously as needed for migraine headache (see administration instructions). May repeat dose after 1 hour if needed. Maximum daily dose is 12 mg per day. diphenhydrAMINE (BENADRYL) 25 mg capsule Take 50 mg by mouth at bedtime as needed. nitrofurantoin monohydrate and macrocrystal (MACROBID) 100 mg capsule Take 1 capsule by mouth two times a day. metroNIDAZOLE (FLAGYL) 500 mg tablet Take 1 tablet by mouth two times a day for 7 days. gabapentin (NEURONTIN) 400 mg capsule Take 1 capsule by mouth every 12 hours for 90 days. No current facility-administered medications for this visit. ALLERGIES Allergen Reactions Aspirin Unknown Penicillins Rash Cephalexin Itching Chlorhexidine Rash Skin rash Ciprofloxacin Rash Unclear if the pruritic areas of rash were related to medication or not, no prior use Iodinated Contrast * Anaphylaxis Toradol [Ketorolac] Rash Asa [Salicylates] Other: See Comments ulcers Contrast Dye [Iodin* Shortness of Breath Dicyclomine Hives Ibuprofen GI Upset ACTIVE PROBLEM LIST Pain of Multiple Sites - 04/11/2021 (Mild priority) Comment: No Narcotics from the Office: Patient has a long standing Hx of complaints of multiple areas of pain with negative work ups. Patient has gone to the ER multiple times for pain medication. Generalized Anxiety Disorder - 03/31/2016 (A priority) Comment: Seeing [facility] center. 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 Migraine Without Aura - 05/17/2008 (A priority) Comment: Has used imitrex with good response; Adjustment Insomnia - 03/31/2016 (B priority) Allergic rhinitis, cause unspecified - 05/17/2008 (B priority) Comment: Spring and summer Calculus of Kidney - 05/17/2008 (C priority) Comment: Sees Dr. Nicolas: Hospitalized age 20, and again later -- no procedures so far ([facility], [address] [facility]) Cigarette Smoker - 05/17/2008 (C priority) Bilateral Low Back Pain Without Sciatica - 06/18/2016 (M priority) Comment: Seeing pain management Acute Asthmatic Bronchitis (Hcc) - 06/21/2024 Obesity, Class II, Bmi 35-39.9 - 02/16/2023 Lung Nodules - 01/22/2020 Comment: Seen on CT done per Cardio 01/2020, Repeat CT in 6-12 months. Social History Tobacco Use Smoking status: Some Days Average packs/day: 0.5 packs/day for 10.4 years (5.2 ttl pk-yrs) Types: Cigarettes Start date: 01/12/2014 Last attempt to quit: 01/12/2017 Years since quittin.0 Smokeless tobacco: Never Tobacco comments: 1/2 pack per day Vaping Use Vaping status: Never Used Substance Use Topics Alcohol use: Yes Comment: Occasional Drug use: Never Review of Systems Respiratory: Negative. Cardiovascular: Negative. Genitourinary: Positive for dysuria, pelvic pain and vaginal discharge. OBJECTIVE BP 128/76 Pulse 82 Wt 199 lb 15.3 oz (90.7kg) SpO2 98% LMP 08/10/2006 Physical Exam Vitals and nursing note reviewed. Constitutional: General: She is awake. She is not in acute distress. Appearance: Normal appearance. She is well-developed and well-groomed. She is not ill-appearing, toxic-appearing or diaphoretic. HENT: Head: Normocephalic. Right Ear: External ear normal. Left Ear: External ear normal. Nose: Nose normal. Eyes: General: Vision grossly intact. Conjunctiva/sclera: Conjunctivae normal. Pupils: Pupils are equal, round, and reactive to light. Neck: Vascular: No JVD. Trachea: Trachea normal. Pulmonary: Effort: Pulmonary effort is normal. No accessory muscle usage, prolonged expiration or respiratory distress. Musculoskeletal: Cervical back: Neck supple. Skin: General: Skin is warm and dry. Capillary Refill: Capillary refill takes less than 2 seconds. Neurological: General: No focal deficit present. Mental Status: She is alert and oriented to person, place, and time. Mental status is at baseline. Psychiatric: Attention and Perception: Attention and perception normal. Mood and Affect: Mood and affect normal. Speech: Speech normal. Behavior: Behavior normal. Behavior is cooperative. Thought Content: Thought content normal. Cognition and Memory: Cognition and memory normal. Judgment: Judgment normal. ASSESSMENT/PLAN: 1. Acute UTI (N39.0) Urinalysis shows a large amount of leukocytes and trace hematuria, indicating a urinary tract infection. - Initiated Macrobid for 7 days. - Prescriptions sent to [facility]. - Follow-up via phone in one week to assess symptom resolution. 2. BV (bacterial vaginosis) (N76.0) Recent history of untreated bacterial vaginosis from December. Current symptoms include significant vaginal discharge with a foul odor and pruritus. Pelvic exam deferred due to recent positive BV swab and current discomfort. - Initiated Metronidazole BID for 7 days; advised to avoid alcohol during treatment and for 48 hours after completion. - Prescriptions sent to [facility]. - Follow-up via phone in one week to assess symptom resolution. 3. Hemorrhoids, unspecified hemorrhoid type (K64.9) Chronic, painful external hemorrhoid with frequent bleeding during bowel movements. Ineffective relief from topical treatments and wipes. - Advised to avoid prolonged sitting and prevent constipation. - Discussed potential surgical options, including hemorrhoidectomy or banding, if symptoms persist or worsen. Portions of this note have been entered by ancillary staff. I have reviewed and when necessary edited, so that they are an adequate record of my encounter with this patient Please note that parts of this document were created using voice recognition software and therefore may contain grammatical errors. Patient verbalizes understanding of instructions from today's visit and in agreement with treatmentplan. Questions answered. Agrees to call the office if questions, concerns of issues with acute symptoms not improving or if they worsen. See diagnoses and orders for additional plan(s). Allergies and medications were reviewed, list was updated, and refills given if needed. Past medical, surgical, social, and family history reviewed and updated as appropriate. Encouraged proper diet & exercise as well as compliance with taking medications. Age- appropriate health preventative measures were discussed. Return if symptoms worsen or fail to improve. Merced Hutchinson APRN-MANUELITO [facility] Instructions* Patient Instructions* Sallie Benitez LPN - 02/14/2025 11:06 AM EDT Images from the original note were not included. Urinary Problem-When to Seek Help? Symptoms of a urinary problem may lead to a bladder infection. Women are at greater risk of a urinary tract infection than are men. Most urinary tract infections in women are caused by bacteria and involve the lower urinary tract including the bladder and urethra. Symptoms: Pain or burning when passing urine, urgency, frequency, blood in the urine, difficult emptying your bladder, and lower abdominal fullness or pressure. Common Causes: Sexual intercourse, menopause, constipation, uncontrolled diabetes, dehydration and feminine products such as tampons, and kidney stones. When to Get Help: Seek medical attention if you get frequent bladder infections, urinary concerns such as leakage, blood in the urine or frequent need to urinate. You may be recommended to get help from a specialist, such as a urologist. Diagnosis & Treatment: Lab testing may include: urinalysis, and urine culture that can be collected in the lab or walk-in clinic. Most bladder infections can easily be treated. A physician, nurse practitioner or physician facility assistant may treat with a short course of an antibiotic. Delaying treatment can lead to worsening symptoms, like a kidney infection. Self-Care: Avoid a full bladder, bubble baths, bath oils, food and beverages that may irritate the bladder such as caffeine. Avoid spermicide foam and diaphragms Void before and after sexual intercourse Wipe front to back after using the bathroom. Stay hydrated Stop Smoking Follow-up Care: Follow up testing is not needed in healthy young women if symptoms resolve. [facility] NotePatient Outreach (INTMWS) SALLY VARGAS ([id number]) 1980 F Date Time Provider Department 01/17/25 SILVERIO HALEY INTMWS During your visit today, we recorded the following information about you: Allergies As of Date: 01/17/2025 Noted Allergy Reaction ASPIRIN 05/26/2019 16 - Unknown PENICILLINS 12/07/2009 2 - Rash CEPHALEXIN 10/20/2019 9 - Itching CHLORHEXIDINE 10/29/2016 2 - Rash Comments: Skin rash CIPROFLOXACIN 01/19/2024 2 - Rash Comments: Unclear if the pruritic areas of rash were related to medication or not, no prior use IODINATED CONTRAST MEDIA 02/09/2023 10 - Anaphylaxis TORADOL (KETOROLAC) 05/25/2020 2 - Rash ASA (SALICYLATES) 01/27/2011 14 - Other: See Comments Comments: ulcers CONTRAST DYE (IODINE) 05/17/2008 12 - Shortness of Breath DICYCLOMINE 04/01/2023 4 - Hives IBUPROFEN 06/18/2016 8 - GI Upset Date Reviewed: 12/14/2024 Reviewed by: Alice Cameron, RN - Fully Assessed Visit Diagnosis:Encounter for screening mammogram for breast cancer [Z12.31] Order(s):SOPHIE SCREENING W IVON [[id number]] Order #: [id number] FUTURE Prescriptions as of 02/17/2025 - nitrofurantoin monohydrate and macrocrystal (MACROBID) 100 mg capsule Take 1 capsule by mouth two times a day. - metroNIDAZOLE (FLAGYL) 500 mg tablet Take 1 tablet by mouth two times a day for 7 days. - topiramate (TOPAMAX) 25 mg tablet Take 1 tablet by mouth two times a day. - colestipol (COLESTID) 1 gram tablet Take 1 tablet by mouth two times a day. - benzocaine-menthol (CEPACOL) 15-3.6 mg lozg Use 1 Lozenge as instructed every 2 hours as needed. - promethazine (PHENERGAN) 25 mg tablet Take 1 tablet by mouth every 8 hours as needed for nausea/vomiting. - LORazepam (ATIVAN) 0.5 mg Take 1 tablet by mouth once daily as needed. [facility] - escitalopram oxalate (LEXAPRO) 20 mg tablet Take 1 tablet by mouth once daily. From [facility]. - ARIPiprazole (ABILIFY) 10 mg tablet Take 1 tablet by mouth once daily. From [facility]. - pantoprazole DR (PROTONIX) 40 mg tablet Take 1 tablet by mouth daily before breakfast. Take on empty stomach, 1/2 hr before meal. - sodium chloride (SALINE NASAL) 0.65 % nasal spray Use 1 [place] in the nose as needed. - gabapentin (NEURONTIN) 400 mg capsule Take 1 capsule by mouth every 12 hours for 90 days. - etodolac (LODINE) 400 mg tablet Take 1 tablet by mouth two times a day as needed. - albuterol HFA (VENTOLIN HFA) 90 mcg/actuation inhaler Inhale 2 Puffs as instructed every 4 hours as needed for wheezing/shortness of breath. - Cholecalciferol, Vitamin D3, 50 mcg (2,000 unit) cap Take 1 capsule by mouth once daily. - SUMAtriptan (IMITREX STATDOSE PEN) 6 mg/0.5 mL pen Inject 0.5 mL subcutaneously as needed for migraine headache (see administration instructions). May repeat dose after 1 hour if needed. Maximum daily dose is 12 mg per day. - diphenhydrAMINE (BENADRYL) 25 mg capsule Take 50 mg by mouth at bedtime as needed. Problem List As Of Date 01/17/2025 Noted Resolved Routine gynecological examination [Z01.419] 05/17/2008 02/16/2023 Class: Chronic Family history of diabetes mellitus [Z83.3] 05/17/2008 10/27/2024 Calculus of kidney [N20.0] 05/17/2008 Allergic rhinitis, cause unspecified [J30.9] 05/17/2008 Migraine without aura [G43.009] 05/17/2008 Cigarette smoker [F17.210] 05/17/2008 Impaired fasting glucose [R73.01] 05/17/2008 12/01/2023 Benign liver cyst [K76.89] 05/24/2010 10/27/2024 Class: Chronic Ovarian cyst [N83.209] 07/15/2012 10/27/2024 Generalized anxiety disorder [F41.1] 03/31/2016 Reactive depression [F32.9] 03/31/2016 Adjustment insomnia [F51.02] 03/31/2016 Encounter for screening for cardiovascular diso*03/31/2016 02/16/2023 Bilateral low back pain without sciatica [M54.5*06/18/2016 Pain in left hip [M25.552] 06/18/2016 10/27/2024 Greater trochanteric bursitis [M70.60] 06/18/2016 10/27/2024 Hydronephrosis of left kidney [N13.30] 02/05/2017 10/27/2024 Hydroureter on left [N13.4] 02/05/2017 10/27/2024 Right facial numbness [R20.0] 02/23/2017 10/27/2024 Right upper extremity numbness [R20.0] 02/23/2017 10/27/2024 Numbness of right lower extremity [R20.0] 02/23/2017 10/27/2024 Weakness of right upper extremity [R29.898] 02/23/2017 10/27/2024 Weakness of right lower extremity [R29.898] 02/23/2017 10/27/2024 Vision blurred [H53.8] 02/23/2017 10/27/2024 Lumbar spine pain [M54.50] 02/23/2017 10/27/2024 Cervical spine pain [M54.2] 02/23/2017 10/27/2024 Abnormal MRI, lumbar spine [R93.7] 02/23/2017 10/27/2024 Hydroureter, left [N13.4] 03/30/2017 10/27/2024 Lung nodules [R91.8] 01/22/2020 Intractable nausea and vomiting [R11.2] 05/25/2020 10/27/2024 Chronic pain syndrome [G89.4] 06/06/2020 10/27/2024 Liver cyst [K76.89] 06/08/2020 10/27/2024 Post-op pain [G89.18] 06/19/2020 02/16/2023 Marijuana use [F12.90] 10 (more content not included)...[facility]04-17-[facility] History of Present illness Narrative* Sunny Story MD - 12/29/2024 2:45 PM EDT Chief Complaint Patient presents with Follow-up ED follow up ED visit 12/27 for chronic pelvic pain Hysterectomy BSO in 2006 for suspected endometriosis Restarted oral estrogen for HRT Percocet not helping with pain Here to discuss continued pelvic pain. Has long hx of chronic pelvic pain. S/p hyst, BSO in 2006 for endometriosis. Underwent ex lap x3 with Dr. Palacios. Op notes reviewed, (2016)There was extensivescar tissue with some thickening and what appeared to be ovarian tissue on the left pelvic sidewallthat was resected in its entirety. At the completion of the operation, the entire left pelvic sidewall had been removed along with the peritoneum, no other evidence of ovarian tissue was found. No other evidence of pelvic masses was noted. The patient had extensive fibrosis on the left pelvic sidewall, the left ureteral stent was palpated but the left ureter was very fibrotic, the surgery required a complete left ureterolysis in order to remove the scar tissue up above the ureter as well as below the ureter. Was previously referred to Pelvic health specialist but was not able to go. Reports pain started toworsen again about 1 month ago. Has been seen in the ER multiple times over the past month for thispain. Was sent with rx for 5 mg Percocet which she takes q4 hrs and barely takes the edge off. She reports this pain is in her lower abdomen and is constant and stabbing. Sometimes feels like period cramps. Not associated with movement. She is current on HRT, had been tolerating well but has had worsening hot flashes and night sweats over the past 2 wks. ROS: Constitutional - denies fevers or chills Resp - denies CP or SOB CV - denies CP GI - denies nausea, vomiting - denies frequency and dysuria Past Medical History: Diagnosis Date Cancer (CMS/HCC) (HCC) Chicken pox High cholesterol History of blood transfusion 2006 Kidney stones Right ureteral calculus 09/05/2019 Past Surgical History: Procedure Laterality Date CHOLECYSTECTOMY CYSTOSCOPY 09/05/2019 cystoscopy, bilateral retrograde pyelograms, right ureteroscopy EXPLORATORY LAPAROTOMY Laparotomy RSO EXPLORATORY LAPAROTOMY 12/02/2016 exp lap, extensive lysis of adhesions, left ureterlysis and excision of left pelvic sidewall HYSTERECTOMY 2006 BSO for endometrisos LAPAROSCOPY DIAGNOSTIC / BIOPSY / ASPIRATION / LYSIS LIVER SURGERY 2019 removed cyst URETEROSCOPY Right 09/05/2019 C&P ( normal bilat). Right ureteroscopy-negative ( passessed stones). [facility] Allergies Allergen Reactions Fentanyl Shortness of breath Iodine Shortness of breath Metronidazole Hives and Shortness of breath Salicylates Itching, Unknown and Other ulcers Cephalexin Itching Gadolinium Derivatives Cough Stopped breathing/ states if benadryl with contrast dye then she is okay Iodinated Contrast Media Nsaids Hives Ondansetron Penicillins Hives Promethazine Hives Toradol [Ketorolac Tromethamine] Chlorhexidine Rash Skin rash Ciprofloxacin Rash Unclear if the pruritic areas of rash were related to medication or not, no prior use Dicyclomine Hives BP 116/74 Ht 1.626 m (5' 4) Wt 88.5 kg (195 lb) BMI 33.47 kg/m PE: Well developed, well nourished Normocephalic, atraumatic CV - normal rate Resp - normal effort Abd - soft, ND MS - no edema Neuro - Pt A&Ox3, NAD Skin - warm and dry Psych - normal affect and behavior Sally was seen today for follow-up. Diagnoses and all orders for this visit: Pelvic pain in female (Primary) - diazePAM (Valium) 5 MG tablet; Place one table vaginally nightly as needed for pelvic muscle spasm Other orders - gabapentin (Neurontin) 300 MG capsule; Take 1 capsule (300 mg) by mouth 3 times daily. Will try vaginal valium and gabapentin Follow up 1 month Working on financial assistance Follow up in about 4 weeks (around 01/26/2025). documented in this [place] [id number] Hospital Discharge instructions* Discharge Instructions* Damion Silva DO - 12/27/2024 4:28 PM EDT Follow-up with your PLANT OPERATOR CONTROL ROOM OPERATOR as scheduled on . You can alternate the oxycodone with 1000 mg of Tylenol every 4 hours as needed for pain, or you can take them together every 6 hours. documented in this [place] [id number] Telephone encounter Note* Telephone Encounter - Tamara Castillo MA - 12/27/2024 3:22 PM EDT Noted. [facility] in ED. [id number] Miscellaneous Notes* Telephone Encounter - Tamara Castillo MA - 12/27/2024 3:22 PM EDT Noted. Patient in ED. * Telephone Encounter - Rhonda Hodge - 12/27/2024 3:01 PM EDT Name of Caller: Sally Vargas Contact Reason for Appointment: Patient returning call from office. Advised patient the would like her to schedule an appointment, see triage 12.27.24. Patient states I'm already in the emergency department. Put patient on hold to schedule and patient hung up Office Name: [facility] Medication Refills need, if any: n/a Medication Name: n/a * Telephone Encounter - Tomasa Richardson MA - 12/27/2024 2:41 PM EDT Reviewed * Telephone Encounter - Bisi Lozada - 12/27/2024 2:18 PM EDT Name of caller: Sally Contact phone number: [phone] Relationship to Patient: patient Provider: [facility] Practice: [facility] Chief Complaint/Reason for Call: Patient states she was told to go to the ER and she wants Dr. Story to know that she is there for abdominal pain. Best time of day caller can be reached: PM Patient advised that office/PCP has 24-48 business hours to return their call: No documented in this encounterSMetroHealth [facility] [id number] Telephone encounter Note* Telephone Encounter - Rhonda Hodge - 12/27/2024 3:01 PM EDT Name of Caller: Sally Vargas Contact Reason for Appointment: Patient returning call from office. Advised patient the Dr would like her to schedule an appointment, see triage 12.27.24. Patient states I'm already in the emergency department. Put patient on hold to schedule and patient hung up Office Name: [facility] Medication Refills need, if any: n/a Medication Name: n/a [place] [id number] Telephone encounter Note* Telephone Encounter - Tomasa Richardson MA - 12/27/2024 2:41 PM EDT Reviewed [place] [id number] Telephone encounter Note* Telephone Encounter - Bisi Lozada - 12/27/2024 2:18 PM EDT Name of caller: Sally Contact phone number: [phone] Relationship to Patient: patient Provider: [facility] Practice: [facility] Chief Complaint/Reason for Call: Patient states she was told to go to the ER and she wants Dr. Story to know that she is there for abdominal pain. Best time of day caller can be reached: PM Patient advised that office/PCP has 24-48 business hours to return their call: No [id number] Emergency department Note* Damion Silva DO - 12/27/2024 2:05 PM EDT EMERGENCY DEPARTMENT ENCOUNTER Pt Name: Sally Vargas Birthdate 1980 Date of evaluation: 12/27/2024 ED Provider: Damion Silva DO CHIEF COMPLAINT Chief Complaint Patient presents with Abdominal Pain Pt comes in due to having increased abd pain pt states she has been seen here a few times for this issue and states its not getting better. Pt is alert and oriented states the pain is lower almost into the pelvis. HISTORY OF PRESENT ILLNESS (Location/Symptom, Timing/Onset, Context/Setting, Quality, Duration, Modifying Factors, Severity) Note limiting factors. I wore appropriate PPE for the entirety of this encounter. HPI Sally Vargas is a 44 y.o. who presents to the emergency department with chief complaint of pelvic pain. Patient has a history of endometriosis and has had a prior total hysterectomy with oophorectomy. States for the past 1 month she has had chronic constant bilateral pelvic pain. Has been to theER multiple times for similar symptoms and was supposed to follow-up with her [employer] OPERATOR CONTROL ROOM OPERATOR, Dr. Story. Was attempting to make an appointment today for follow up however came to the ER due to her chronic pain. He had also referred her to a pelvic pain specialist however they required payment upfront and she does not have insurance so she was not able to see them. States she is taking Tylenol for her pain due to not being able to take anti-inflammatories. States it is not helping and she is also ex periencing nausea but no vomiting. States this is the same pain she has been experiencing for the past 1 month and she is here due to poor pain control. Nursing Notes were reviewed. Limitations to history: None Outside historians: None REVIEW OF SYSTEMS Review of Systems Pertinent positives and negatives as per HPI. PAST MEDICAL HISTORY Past Medical History: Diagnosis Date Cancer (CMS/HCC) (HCC) Chicken pox High cholesterol History of blood transfusion 2006 Kidney stones Right ureteral calculus 09/05/2019 SURGICAL HISTORY Past Surgical History: Procedure Laterality Date CHOLECYSTECTOMY CYSTOSCOPY 09/05/2019 cystoscopy, bilateral retrograde pyelograms, right ureteroscopy EXPLORATORY LAPAROTOMY Laparotomy RSO EXPLORATORY LAPAROTOMY 12/02/2016 exp lap, extensive lysis of adhesions, left ureterlysis and excision of left pelvic sidewall HYSTERECTOMY 2006 BSO for endometrisos LAPAROSCOPY DIAGNOSTIC / BIOPSY / ASPIRATION / LYSIS LIVER SURGERY 2019 removed cyst URETEROSCOPY Right 09/05/2019 C&P ( normal bilat). Right ureteroscopy-negative ( passessed stones). [facility] CURRENT MEDICATIONS Current Discharge Medication List CONTINUE these medications which have NOT CHANGED Details colestipol (Colestid) 1 g tablet Take 1 g by mouth twice a day. EPINEPHrine (Epipen) 0.3 MG/0.3ML injection syringe As directed !! estradiol (Estrace) 0.5 MG tablet TAKE 1 TABLET BY MOUTH EVERY DAY Qty: 30 tablet, Refills: 0 !! estradiol (Estrace) 2 MG tablet Take 1 tablet (2 mg) by mouth daily. Qty: 30 tablet, Refills: 11 gabapentin (Neurontin) 400 MG capsule Take 400 mg by mouth every 12 hours. HYDROcodone-acetaminophen (Acushnet) 5-325 MG tablet Dose = 1 tab(s), Oral, q6h, PRN for pain, tab(s),0 Refill(s), 95.1 metoclopramide (Reglan) 10 MG tablet Take 1 tablet (10 mg) by mouth every 6 hours for 7 days. Qty: 28 tablet, Refills: 0 ondansetron ODT (Zofran-ODT) 4 MG disintegrating tablet 4 mg. pantoprazole (ProtoNix) 40 MG EC tablet Take 40 mg by mouth. PARoxetine (Paxil) 10 MG tablet TAKE 1 TABLET (10 MG) BY MOUTH DAILY. Qty: 30 tablet, Refills: 0 promethazine (Phenergan) 25 MG tablet 25 mg. SUMAtriptan Succinate 6 MG/0.5ML solution cartridge Inject 6 mg under the skin. topiramate (Topamax) 25 MG tablet Take 25 mg by mouth twice a day. !! - Potential duplicate medications found. Please discuss with provider. ALLERGIES Fentanyl, Iodine, Metronidazole, Salicylates, Cephalexin, Gadolinium derivatives, Iodinated contrast media, Nsaids, Ondansetron, Penicillins, Promethazine, Toradol [ketorolac tromethamine], Chlorhexidine, Ciprofloxacin, and Dicyclomine FAMILY HISTORY Family History Problem Relation Name Age of Onset Other (59953) Mother blood clots Hyperlipidemia Mother High Blood Pressure Mother SOCIAL HISTORY Social History Socioeconomic History Marital status: Tobacco Use Smoking status: Every Day Current packs/day: 0.50 Types: Cigarettes Smokeless tobacco: Never Vaping Use Vaping status: Never Used Substance and Sexual Activity Alcohol use: Yes Alcohol/week: 0.0 standard drinks of alcohol Drug use: Yes Types: Marijuana Comment: occasional gummy Social Drivers of Health Financial Resource Strain: Patient Declined (12/14/2023) Received from [facility] Overall Financial Resource Strain (CARDIA) Difficulty of Paying Living Expenses: Patient declined Food Insecurity: Patient Declined (12/14/2023) Received from [facility] Hunger Vital Sign Worried About Running Out of Food in the Last Year: Patient declined Ran Out of Food in the Last Year: Patient declined Transportation Needs: Patient Declined (12/14/2023) Received from [facility] PRAPARE - Transportation Lack of Transportation (Medical): Patient declined Lack of Transportation (Non-Medical): Patient declined Physical Activity: Patient Declined (12/14/2023) Received from [facility] Exercise Vital Sign Days of Exercise per Week: Patient declined Minutes of Exercise per Session: Patient declined Stress: No Stress Concern Present (11/15/2020) Received from [facility], [facility] [place] of Occupational Health - Occupational Stress Questionnaire Feeling of Stress : Only a little Social Connections: Unknown (12/14/2023) Received from [facility] Social Connection and Isolation Panel [NHANES] Active Member of Clubs or Organizations: Patient declined Marital Status: Patient declined Housing Stability: Patient Declined (12/14/2023) Received from [facility] Housing Stability Vital Sign Unable to Pay for Housing in the Last Year: Patient declined Unstable Housing in the Last Year: Patient declined SCREENINGS PHYSICAL EXAM ED Triage Vitals [12/27/24 1408] Temp Heart Rate Resp BP 37 C (98.6 F) 79 18 (!) 148/99 SpO2 Temp Source Heart Rate Source Patient Position 99 % Temporal Monitor Sitting BP Location FiO2 (%) Right arm -- Physical Exam Vitals and nursing note reviewed. Constitutional: General: She is not in acute distress. Appearance: She is well-developed. She is not ill-appearing or toxic-appearing. Comments: Tearful HENT: Head: Normocephalic and atraumatic. Nose: Nose normal. Eyes: Extraocular Movements: Extraocular movements intact. Pulmonary: Effort: Pulmonary effort is normal. No respiratory distress. Abdominal: General: There is no distension. Palpations: Abdomen is soft. Tenderness: There is no abdominal tenderness. Musculoskeletal: General: Normal range of motion. Cervical back: Normal range of motion and neck supple. Skin: General: Skin is warm and dry. Capillary Refill: Capillary refill takes less than 2 seconds. Neurological: General: No focal deficit present. Mental Status: She is alert. Mental status is at baseline. DIAGNOSTIC RESULTS RADIOLOGY (Per Emergency Physician): Interpretation per the Radiologist below, if available at the time of this note: No orders to display ED BEDSIDE ULTRASOUND: Performed by ED Physician - none LABS: Labs Reviewed - No data to display All other labs were within normal range or not returned as of this dictation. EMERGENCY DEPARTMENT COURSE and DIFFERENTIAL DIAGNOSIS/MDM: Vitals: Vitals: 12/27/24 1408 12/27/24 1604 BP: (!) 148/99 BP Location: Right arm Patient Position: Sitting Pulse: 79 Resp: 18 Temp: 37 C (98.6 F) TempSrc: Temporal SpO2: 99% 99% Diagnoses as of 12/27/24 1641 Chronic pelvic pain in female The patient presented with chief complaint of pelvic pain. The differential diagnosis associated with this patient's presentation includes endometriosis, chronic pelvic pain, UTI. Our workup consisted of ordering/reviewing: chart review. Patient is in agreement with this plan. Medications oxyCODONE (Roxicodone) immediate release tablet 5 mg (5 mg Oral Given 12/27/24 1604) ondansetron ODT (Zofran-ODT) disintegrating tablet 4 mg (4 mg Oral Given 12/27/24 1604) REVAL: 44-year-old female presenting to the ED for chronic pelvic pain. Chart review shows that she has been to the ER multiple times for similar symptoms and has had labs, urinalysis, vaginitis panel, CT x2 and pelvic ultrasound. She had been diagnosed with bacterial vaginitis and treated a course of antibiotics but is still experiencing symptoms. Her imaging results were unremarkable. After discussion with the patient and reviewing her results I do not believe any repeat labs or imaging would be ofbenefit today. She knows that she has to schedule an appointment to follow-up with her PLANT OPERATOR CONTROL ROOM OPERATOR and they had discussed doing scoping due to her persistent chronic pain. She is here for pain control today. She was given p.o. oxycodone and Zofran. Will be given a short course of oxycodone. She is now scheduled follow-up with her PLANT OPERATOR CONTROL ROOM OPERATOR for . CRITICAL CARE TIME CONSULTS: None PROCEDURES: Unless otherwise noted below, none Procedures Patients symptoms are consistent with sepsis, severe sepsis, or septic shock (If yes use .sepsiscoremeasure): FINAL IMPRESSION 1. Chronic pelvic pain in female DISPOSITION Discharge 12/27/2024 04:27:02 PM PATIENT REFERRED TO: Sunny Story MD [address] [place] [address] DISCHARGE MEDICATIONS: Current Discharge Medication List START taking these medications Details oxyCODONE (Roxicodone) 5 MG immediate release tablet Take 1 tablet (5 mg) by mouth every 8 hours asneeded for severe pain (7-10). Qty: 10 tablet, Refills: 0 Associated Diagnoses: Chronic pelvic pain in female (Comment: Please note this report has been produced using speech recognition software and may contain errors related to that system including errors in grammar, punctuation, and spelling, as well as words and phrases that may be inappropriate. If there are any questions or concerns please feel freeto contact the dictating provider for clarification.) Damion Silva DO (electronically signed) Emergency Medicine Provider Damion Silva DO 12/27/24 1641 documented in this [facility]04-15-2025 Physician Emergency department Note* Damion Silva DO - 12/27/2024 2:05 PM EDT EMERGENCY DEPARTMENT ENCOUNTER Pt Name: Sally Vargas Birthdate 1980 Date of evaluation: 12/27/2024 ED Provider: Damion Silva DO CHIEF COMPLAINT Chief Complaint Patient presents with Abdominal Pain Pt comes in due to having increased abd pain pt states she has been seen here a few times for this issue and states its not getting better. Pt is alert and oriented states the pain is lower almost into the pelvis. HISTORY OF PRESENT ILLNESS (Location/Symptom, Timing/Onset, Context/Setting, Quality, Duration, Modifying Factors, Severity) Note limiting factors. I wore appropriate PPE for the entirety of this encounter. HPI Sally Vargas is a 44 y.o. who presents to the emergency department with chief complaint of pelvic pain. Patient has a history of endometriosis and has had a prior total hysterectomy with oophorectomy. States for the past 1 month she has had chronic constant bilateral pelvic pain. Has been to theER multiple times for similar symptoms and was supposed to follow-up with her PLANT OPERATOR CONTROL ROOM OPERATOR, Dr. Story. Was attempting to make an appointment today for follow up however came to the ER due to her chronic pain. He had also referred her to a pelvic pain specialist however they required payment upfront and she does not have insurance so she was not able to see them. States she is taking Tylenol for her pain due to not being able to take anti-inflammatories. States it is not helping and she is also ex periencing nausea but no vomiting. States this is the same pain she has been experiencing for the past 1 month and she is here due to poor pain control. Nursing Notes were reviewed. Limitations to history: None Outside historians: None REVIEW OF SYSTEMS Review of Systems Pertinent positives and negatives as per HPI. PAST MEDICAL HISTORY Past Medical History: Diagnosis Date Cancer (CMS/HCC) (HCC) Chicken pox High cholesterol History of blood transfusion 2006 Kidney stones Right ureteral calculus 09/05/2019 SURGICAL HISTORY Past Surgical History: Procedure Laterality Date CHOLECYSTECTOMY CYSTOSCOPY 09/05/2019 cystoscopy, bilateral retrograde pyelograms, right ureteroscopy EXPLORATORY LAPAROTOMY Laparotomy RSO EXPLORATORY LAPAROTOMY 12/02/2016 exp lap, extensive lysis of adhesions, left ureterlysis and excision of left pelvic sidewall HYSTERECTOMY 2006 BSO for endometrisos LAPAROSCOPY DIAGNOSTIC / BIOPSY / ASPIRATION / LYSIS LIVER SURGERY 2019 removed cyst URETEROSCOPY Right 09/05/2019 C&P ( normal bilat). Right ureteroscopy-negative ( passessed stones). Spear CURRENT MEDICATIONS Current Discharge Medication List CONTINUE these medications which have NOT CHANGED Details colestipol (Colestid) 1 g tablet Take 1 g by mouth twice a day. EPINEPHrine (Epipen) 0.3 MG/0.3ML injection syringe As directed !! estradiol (Estrace) 0.5 MG tablet TAKE 1 TABLET BY MOUTH EVERY DAY Qty: 30 tablet, Refills: 0 !! estradiol (Estrace) 2 MG tablet Take 1 tablet (2 mg) by mouth daily. Qty: 30 tablet, Refills: 11 gabapentin (Neurontin) 400 MG capsule Take 400 mg by mouth every 12 hours. HYDROcodone-acetaminophen (Acushnet) 5-325 MG tablet Dose = 1 tab(s), Oral, q6h, PRN for pain, tab(s),0 Refill(s), 95.1 metoclopramide (Reglan) 10 MG tablet Take 1 tablet (10 mg) by mouth every 6 hours for 7 days. Qty: 28 tablet, Refills: 0 ondansetron ODT (Zofran-ODT) 4 MG disintegrating tablet 4 mg. pantoprazole (ProtoNix) 40 MG EC tablet Take 40 mg by mouth. PARoxetine (Paxil) 10 MG tablet TAKE 1 TABLET (10 MG) BY MOUTH DAILY. Qty: 30 tablet, Refills: 0 promethazine (Phenergan) 25 MG tablet 25 mg. SUMAtriptan Succinate 6 MG/0.5ML solution cartridge Inject 6 mg under the skin. topiramate (Topamax) 25 MG tablet Take 25 mg by mouth twice a day. !! - Potential duplicate medications found. Please discuss with provider. ALLERGIES Fentanyl, Iodine, Metronidazole, Salicylates, Cephalexin, Gadolinium derivatives, Iodinated contrast media, Nsaids, Ondansetron, Penicillins, Promethazine, Toradol [ketorolac tromethamine], Chlorhexidine, Ciprofloxacin, and Dicyclomine FAMILY HISTORY Family History Problem Relation Name Age of Onset Other (78298) Mother blood clots Hyperlipidemia Mother High Blood Pressure Mother SOCIAL HISTORY Social History Socioeconomic History Marital status: Tobacco Use Smoking status: Every Day Current packs/day: 0.50 Types: Cigarettes Smokeless tobacco: Never Vaping Use Vaping status: Never Used Substance and Sexual Activity Alcohol use: Yes Alcohol/week: 0.0 standard drinks of alcohol Drug use: Yes Types: Marijuana Comment: occasional gummy Social Drivers of Health Financial Resource Strain: Patient Declined (12/14/2023) Received from [facility] Overall Financial Resource Strain (CARDIA) Difficulty of Paying Living Expenses: Patient declined Food Insecurity: Patient Declined (12/14/2023) Received from [facility] Hunger Vital Sign Worried About Running Out of Food in the Last Year: Patient declined Ran Out of Food in the Last Year: Patient declined Transportation Needs: Patient Declined (12/14/2023) Received from [facility] PRAPARE - Transportation Lack of Transportation (Medical): Patient declined Lack of Transportation (Non-Medical): Patient declined Physical Activity: Patient Declined (12/14/2023) Received from [facility] Exercise Vital Sign Days of Exercise per Week: Patient declined Minutes of Exercise per Session: Patient declined Stress: No Stress Concern Present (11/15/2020) Received from [facility], [facility] Citizen Of [place] [employer] Occupational Health - Occupational Stress Questionnaire Feeling of Stress : Only a little Social Connections: Unknown (12/14/2023) Received from [facility] Social Connection and Isolation Panel [NHANES] Active Member of Clubs or Organizations: Patient declined Marital Status: Patient declined Housing Stability: Patient Declined (12/14/2023) Received from [facility] Housing Stability Vital Sign Unable to Pay for Housing in the Last Year: Patient declined Unstable Housing in the Last Year: Patient declined SCREENINGS PHYSICAL EXAM ED Triage Vitals [12/27/24 1408] Temp Heart Rate Resp BP 37 C (98.6 F) 79 18 (!) 148/99 SpO2 Temp Source Heart Rate Source Patient Position 99 % Temporal Monitor Sitting BP Location FiO2 (%) Right arm -- Physical Exam Vitals and nursing note reviewed. Constitutional: General: She is not in acute distress. Appearance: She is well-developed. She is not ill-appearing or toxic-appearing. Comments: Tearful HENT: Head: Normocephalic and atraumatic. Nose: Nose normal. Eyes: Extraocular Movements: Extraocular movements intact. Pulmonary: Effort: Pulmonary effort is normal. No respiratory distress. Abdominal: General: There is no distension. Palpations: Abdomen is soft. Tenderness: There is no abdominal tenderness. Musculoskeletal: General: Normal range of motion. Cervical back: Normal range of motion and neck supple. Skin: General: Skin is warm and dry. Capillary Refill: Capillary refill takes less than 2 seconds. Neurological: General: No focal deficit present. Mental Status: She is alert. Mental status is at baseline. DIAGNOSTIC RESULTS RADIOLOGY (Per Emergency Physician): Interpretation per the Radiologist below, if available at the time of this note: No orders to display ED BEDSIDE ULTRASOUND: Performed by ED Physician - none LABS: Labs Reviewed - No data to display All other labs were within normal range or not returned as of this dictation. EMERGENCY DEPARTMENT COURSE and DIFFERENTIAL DIAGNOSIS/MDM: Vitals: Vitals: 12/27/24 1408 12/27/24 1604 BP: (!) 148/99 BP Location: Right arm Patient Position: Sitting Pulse: 79 Resp: 18 Temp: 37 C (98.6 F) TempSrc: Temporal SpO2: 99% 99% Diagnoses as of 12/27/24 1641 Chronic pelvic pain in female The patient presented with chief complaint of pelvic pain. The differential diagnosis associated with this patient's presentation includes endometriosis, chronic pelvic pain, UTI. Our workup consisted of ordering/reviewing: chart review. Patient is in agreement with this plan. Medications oxyCODONE (Roxicodone) immediate release tablet 5 mg (5 mg Oral Given 12/27/24 1604) ondansetron ODT (Zofran-ODT) disintegrating tablet 4 mg (4 mg Oral Given 12/27/24 1604) REVAL: 44-year-old female presenting to the ED for chronic pelvic pain. Chart review shows that she has been to the ER multiple times for similar symptoms and has had labs, urinalysis, vaginitis panel, CT x2 and pelvic ultrasound. She had been diagnosed with bacterial vaginitis and treated a course of antibiotics but is still experiencing symptoms. Her imaging results were unremarkable. After discussion with the patient and reviewing her results I do not believe any repeat labs or imaging would be ofbenefit today. She knows that she has to schedule an appointment to follow-up with her PLANT OPERATOR CONTROL ROOM OPERATOR and they had discussed doing scoping due to her persistent chronic pain. She is here for pain control today. She was given p.o. oxycodone and Zofran. Will be given a short course of oxycodone. She is now scheduled follow-up with her PLANT OPERATOR CONTROL ROOM OPERATOR for . CRITICAL CARE TIME CONSULTS: None PROCEDURES: Unless otherwise noted below, none Procedures Patients symptoms are consistent with sepsis, severe sepsis, or septic shock (If yes use .sepsiscoremeasure): FINAL IMPRESSION 1. Chronic pelvic pain in female DISPOSITION Discharge 12/27/2024 04:27:02 PM PATIENT REFERRED TO: Sunny Story MD [address] [facility] [address] DISCHARGE MEDICATIONS: Current Discharge Medication List START taking these medications Details oxyCODONE (Roxicodone) 5 MG immediate release tablet Take 1 tablet (5 mg) by mouth every 8 hours asneeded for severe pain (7-10). Qty: 10 tablet, Refills: 0 Associated Diagnoses: Chronic pelvic pain in female (Comment: Please note this report has been produced using speech recognition software and may contain errors related to that system including errors in grammar, punctuation, and spelling, as well as words and phrases that may be inappropriate. If there are any questions or concerns please feel freeto contact the dictating provider for clarification.) Damion Silva DO (electronically signed) Emergency Medicine Provider Damion Silva DO 12/27/24 1641 [id number] History of Present illness Narrative* Sunny Story MD - 12/21/2024 12:30 PM EDT Sally Vargas 12/21/2025 44 y.o. Primary Care Physician: SILVERIO HALEY Chief Complaint Patient presents with New Patient Re-establishing care, ED follow up 3 recent ED visits for chronic lower abdominal pain and spotting CT and US completed Hysterectomy BSO in 2006 for suspected endometriosis No longer on oral estrogen- having hot flashes HPI : Sally Vargas is a 44 y.o. female here for annual exam Gynecologic History: No LMP recorded. Patient has had a hysterectomy. Severe pain coming back Going on for a few months and getting worse last 4 weeks Has been to ER multiple times Pain b/l LQ OB History Para Term AB Living 4 2 2 0 2 0 SAB IAB Ectopic Multiple Live Births 2 0 0 0 0 # Outcome Date GA Lbr Tahir/2nd Weight Sex Type Anes PTL Lv 4 Term 3 Term 2 SAB 1 SAB Past Medical History: Diagnosis Date Cancer (CMS/HCC) (HCC) Chicken pox High cholesterol History of blood transfusion 2006 Kidney stones Right ureteral calculus 09/05/2019 Past Surgical History: Procedure Laterality Date CHOLECYSTECTOMY CYSTOSCOPY 09/05/2019 cystoscopy, bilateral retrograde pyelograms, right ureteroscopy EXPLORATORY LAPAROTOMY Laparotomy RSO EXPLORATORY LAPAROTOMY 12/02/2016 exp lap, extensive lysis of adhesions, left ureterlysis and excision of left pelvic sidewall HYSTERECTOMY 2006 BSO for endometrisos LAPAROSCOPY DIAGNOSTIC / BIOPSY / ASPIRATION / LYSIS LIVER SURGERY 2019 removed cyst URETEROSCOPY Right 09/05/2019 C&P ( normal bilat). Right ureteroscopy-negative ( passessed stones). Spear Family History Problem Relation Name Age of Onset Other (32638) Mother blood clots Hyperlipidemia Mother High Blood Pressure Mother Social History Socioeconomic History Marital status: Spouse name: Not on file Number of children: Not on file Years of education: Not on file Highest education level: Not on file Occupational History Not on file Tobacco Use Smoking status: Every Day Current packs/day: 0.50 Types: Cigarettes Smokeless tobacco: Never Vaping Use Vaping status: Never Used Substance and Sexual Activity Alcohol use: Yes Alcohol/week: 0.0 standard drinks of alcohol Drug use: Yes Types: Marijuana Comment: occasional gummy Sexual activity: Not on file Other Topics Concern Not on file Social History Narrative Not on file Social Drivers of Health Financial Resource Strain: Patient Declined (12/14/2023) Received from [facility] Overall Financial Resource Strain (CARDIA) Difficulty of Paying Living Expenses: Patient declined Food Insecurity: Patient Declined (12/14/2023) Received from [facility] Hunger Vital Sign Worried About Running Out of Food in the Last Year: Patient declined Ran Out of Food in the Last Year: Patient declined Transportation Needs: Patient Declined (12/14/2023) Received from [facility] PRAPARE - Transportation Lack of Transportation (Medical): Patient declined Lack of Transportation (Non-Medical): Patient declined Physical Activity: Patient Declined (12/14/2023) Received from [facility] Exercise Vital Sign Days of Exercise per Week: Patient declined Minutes of Exercise per Session: Patient declined Stress: No Stress Concern Present (11/15/2020) Received from [facility], [facility] [employer]ational Health - Occupational Stress Questionnaire Feeling of Stress : Only a little Social Connections: Unknown (12/14/2023) Received from [facility] Social Connection and Isolation Panel [NHANES] Frequency of Communication with Friends and Family: Not on file Frequency of Social Gatherings with Friends and Family: Not on file Attends [employer]: Not on file Active Member of Clubs or Organizations: Patient declined Attends Club or Organization Meetings: Not on file Marital Status: Patient declined Intimate Partner Violence: Not on file Housing Stability: Patient Declined (12/14/2023) Received from [facility] Housing Stability Vital Sign Unable to Pay for Housing in the Last Year: Patient declined Number of Places Lived in the Last Year: Not on file Unstable Housing in the Last Year: Patient declined MEDICATIONS: Current Outpatient Medications Medication Sig Dispense Refill colestipol (Colestid) 1 g tablet Take 1 g by mouth twice a day. EPINEPHrine (Epipen) 0.3 MG/0.3ML injection syringe As directed gabapentin (Neurontin) 400 MG capsule Take 400 mg by mouth every 12 hours. HYDROcodone-acetaminophen (Acushnet) 5-325 MG tablet Dose = 1 tab(s), Oral, q6h, PRN for pain, tab(s),0 Refill(s), 95.1 metoclopramide (Reglan) 10 MG tablet Take 1 tablet (10 mg) by mouth every 6 hours for 7 days. 28 tablet 0 ondansetron ODT (Zofran-ODT) 4 MG disintegrating tablet 4 mg. pantoprazole (ProtoNix) 40 MG EC tablet Take 40 mg by mouth. PARoxetine (Paxil) 10 MG tablet TAKE 1 TABLET (10 MG) BY MOUTH DAILY. 30 tablet 0 promethazine (Phenergan) 25 MG tablet 25 mg. SUMAtriptan Succinate 6 MG/0.5ML solution cartridge Inject 6 mg under the skin. topiramate (Topamax) 25 MG tablet Take 25 mg by mouth twice a day. estradiol (Estrace) 0.5 MG tablet TAKE 1 TABLET BY MOUTH EVERY DAY (Patient not taking: Reported on12/21/2024) 30 tablet 0 estradiol (Estrace) 2 MG tablet Take 1 tablet (2 mg) by mouth daily. 30 tablet 11 No current facility-administered medications for this visit. ALLERGIES: Allergies as of 12/21/2024 - Reviewed 12/21/2024 Allergen Reaction Noted Fentanyl Shortness of breath 11/17/2024 Iodine Shortness of breath 05/17/2008 Metronidazole Hives and Shortness of breath 04/11/2015 Salicylates Itching, Unknown, and Other 01/27/2011 Cephalexin Itching 10/20/2019 Gadolinium derivatives Cough 08/08/2015 Iodinated contrast media 12/12/2024 Nsaids Hives 12/12/2024 Ondansetron 12/15/2024 Penicillins Hives 12/12/2024 Promethazine Hives 05/26/2019 Toradol [ketorolac tromethamine] 12/12/2024 Chlorhexidine Rash 10/29/2016 Ciprofloxacin Rash 01/19/2024 Dicyclomine Hives 04/01/2023 REVIEW OF SYSTEMS: CONSTIUTIONAL: No fever, chills or malaise; No weight change or fatigue CV: No Chest Pain with Exertion, Palpitations, Syncope, Edema, Arrhythmia RESPIRATORY: No SOB, Pneumoniae,Cough, BREAST: No breast abnormalities or lumps GI: No Indigestion, Heartburn, Nausea, vomiting, Diarrhea, Constipation,Bloating or Bowel Changes; No Bloody Stools or melena : No Dysuria, Hematuria or Nocturia. No Urinary Incontinence or Vaginal Discharge,vaginal bleeding, or dysparuenia. NEURO: No CVA, Migraines, Epilepsy, Seizure Hx, or Limb Weakness DERM: No Rash, Itching, Hives, Mole Changes or Cancer PSYCH: No Depression, Homicidal thoughts,suicidal thoughts, or anxiety MUSCULOSKELETAL: No Arthralgia, or Arthritis HEME and LYMPH :No Lymphoma, Von Willebrand's, Hemophillia or Bleeding History PHYSICAL EXAM: Vitals: 12/21/24 1212 BP: 128/84 Weight: 88.5 kg (195 lb) Height: 1.626 m (5' 4) Body mass index is 33.47 kg/m . 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 ANUS/PERINEUM: no hemorrhoids, masses or warts noted. GENERAL EXAM BREAST: deferred CONSTITUTIONAL: Well developed, well nourished, well groomed. no acute distress NECK: no thyromegaly, supple. CARDIOVASCULAR: normal rate and rhythm, no edema LUNGS: Normal effort, normal lung sounds ABDOMEN:soft, non-tender, non-distended, no hepatospleenomegaly SKIN: intact, dry NEUROLOGICAL: no gross motor or sensory deficits noted. . MUSCULOSKELETAL: normal gait, no cyanosis. PSYCHIATRIC Normal mood and affect, A&O x3. ASSESSMENT/PLAN: Sally was seen today for new patient. Diagnoses and all orders for this visit: Pelvic pain (Primary) - [facility]; Future Other orders - estradiol (Estrace) 2 MG tablet; Take 1 tablet (2 mg) by mouth daily. Follow up for annual. ER notes and imaging reviewed Not on estrogen - was on in past Discussed ERT, pain clinic, and surgery Restart estrogen and see pain clinic documented in this encounterSMet[facility] [id number] Telephone encounter Note* Telephone Encounter - Kathy Churchill RN - 12/20/2024 10:32 AM EDT S: Patient spoke with [facility] nurse seeking a sooner appointment with Dr. Story B: Onset of symptoms/concern 4 weeks A: Patient has abdominal and pelvic symptoms, went to ED for evaluation twice. Patient has an upcoming appointment on 12/21/2024. Patient has 10/10 pain, unable to sleep. Patient states she continuesto take the pain med without relief. R: No sooner appointments with Dr. Story were available today. Patient verbalized understanding. Patient instructed to go to the ED if her symptoms get worse. Reason for Disposition MILD TO MODERATE constant pain lasting > 2 hours Protocols used: Abdominal Pain - ADULT-[place] [id number] Miscellaneous Notes* Telephone Encounter - Kathy Churchill RN - 12/20/2024 10:32 AM EDT S: Patient spoke with [facility] nurse seeking a sooner appointment with Dr. Story B: Onset of symptoms/concern 4 weeks A: Patient has abdominal and pelvic symptoms, went to ED for evaluation twice. Patient has an upcoming appointment on 12/21/2024. Patient has 10/10 pain, unable to sleep. Patient states she continuesto take the pain med without relief. R: No sooner appointments with Dr. Story were available today. Patient verbalized understanding. Patient instructed to go to the ED if her symptoms get worse. Reason for Disposition MILD TO MODERATE constant pain lasting > 2 hours Protocols used: Abdominal Pain - ADULT-[place] documented in this encounterSMetroHealth [facility] [id number] Telephone encounter Note* Telephone Encounter - Augustina Allen RN - 12/19/2024 8:45 AM EDT S: Caller spoke with [facility] nurse regarding lower abdominal pain and nausea. B: Onset of symptoms/concern: Not an established patient A: Caller states she has gone to the ED three (3) times for this issue, has an appointment on Thursday but is looking for something sooner, was told by her PCP that she needs to see her PLANT OPERATOR CONTROL ROOM OPERATOR for her chronic abdominal pain. Caller denies pelvic pain. R: Caller advised I am unable to get her seen sooner and needs to keep her appointment as scheduledon 12/21/24 to re-establish care. Reason for Disposition Abdominal pain is a chronic symptom (recurrent or ongoing AND lasting > 4 weeks) Protocols used: Abdominal Pain - ADULT-[place] [id number] Miscellaneous Notes* Telephone Encounter - Augustina Allen RN - 12/19/2024 8:45 AM EDT S: Caller spoke with [facility] nurse regarding lower abdominal pain and nausea. B: Onset of symptoms/concern: Not an established patient A: Caller states she has gone to the ED three (3) times for this issue, has an appointment on Thursday but is looking for something sooner, was told by her PCP that she needs to see her PLANT OPERATOR CONTROL ROOM OPERATOR for her chronic abdominal pain. Caller denies pelvic pain. R: Caller advised I am unable to get her seen sooner and needs to keep her appointment as scheduledon 12/21/24 to re-establish care. Reason for Disposition Abdominal pain is a chronic symptom (recurrent or ongoing AND lasting > 4 weeks) Protocols used: Abdominal Pain - ADULT-[place] documented in this [facility]04-05-2025 Emergency department Note* Silvia Lofton RN - 12/17/2024 2:17 PM EDT Pt observed on camera getting into her vehicle and driving away after being instructed not to driveafter receiving narcotics in the ER [id number] Emergency department Note* Silvia Lofton RN - 12/17/2024 2:17 PM EDT Pt observed on camera getting into her vehicle and driving away after being instructed not to driveafter receiving narcotics in the ER * Silvia Lofton RN - 12/17/2024 2:16 PM EDT Discussed with pt the need to get a ride home due to receiving IV narcotic pain medication. Pt states she will sit in the waiting room and not drive home. * Silvia Lofton RN - 12/17/2024 12:40 PM EDT Pt instructed on self swab for GC/ chlamydia and verbalized understanding * Emiliano White MD - 12/17/2024 11:40 AM EDT EMERGENCY DEPARTMENT ENCOUNTER Pt Name: Sally Vargas Birthdate 1980 Date of evaluation: 12/17/2024 ED Provider: Emiliano White MD CHIEF COMPLAINT Chief Complaint Patient presents with Abdominal Pain Vaginal Discharge HISTORY OF PRESENT ILLNESS (Location/Symptom, Timing/Onset, Context/Setting, Quality, Duration, Modifying Factors, Severity) Note limiting factors. I wore appropriate PPE for the entirety of this encounter. HPI Sally Vargas is a 44 y.o. who presents to the emergency department with chief complaint of chronic lower abdominal pain she had a hysterectomy for similar but is had worsening pain since July.She was seen twice in the last week had a CT and transvaginal ultrasound as well as blood work all of its come back reassuring. She has follow-up with [facility] in 4 days Nursing Notes were reviewed. Limitations to history: Outside historians: REVIEW OF SYSTEMS Review of Systems Pertinent positives and negatives as per HPI. PAST MEDICAL HISTORY Past Medical History: Diagnosis Date Cancer (CMS/HCC) (HCC) Chicken pox High cholesterol History of blood transfusion 2006 Kidney stones Right ureteral calculus 09/05/2019 SURGICAL HISTORY Past Surgical History: Procedure Laterality Date CHOLECYSTECTOMY CYSTOSCOPY 09/05/2019 cystoscopy, bilateral retrograde pyelograms, right ureteroscopy EXPLORATORY LAPAROTOMY Laparotomy RSO EXPLORATORY LAPAROTOMY 12/02/2016 exp lap, extensive lysis of adhesions, left ureterlysis and excision of left pelvic sidewall HYSTERECTOMY LAPAROSCOPY DIAGNOSTIC / BIOPSY / ASPIRATION / LYSIS LIVER SURGERY 2019 removed cyst URETEROSCOPY Right 09/05/2019 C&P ( normal bilat). Right ureteroscopy-negative ( passessed stones). [facility] CURRENT MEDICATIONS Previous Medications COLESTIPOL (COLESTID) 1 G TABLET Take 1 g by mouth twice a day. EPINEPHRINE (EPIPEN) 0.3 MG/0.3ML INJECTION SYRINGE As directed ESTRADIOL (ESTRACE) 0.5 MG TABLET TAKE 1 TABLET BY MOUTH EVERY DAY GABAPENTIN (NEURONTIN) 400 MG CAPSULE Take 400 mg by mouth every 12 hours. HYDROCODONE-ACETAMINOPHEN (NORCO) 5-325 MG TABLET Take 1 tablet by mouth every 6 hours as needed for severe pain (7-10) for up to 5 days. HYDROCODONE-ACETAMINOPHEN (NORCO) 5-325 MG TABLET Dose = 1 tab(s), Oral, q6h, PRN for pain, tab(s),0 Refill(s), 95.1 ONDANSETRON ODT (ZOFRAN-ODT) 4 MG DISINTEGRATING TABLET 4 mg. PANTOPRAZOLE (PROTONIX) 40 MG EC TABLET Take 40 mg by mouth. PAROXETINE (PAXIL) 10 MG TABLET TAKE 1 TABLET (10 MG) BY MOUTH DAILY. PROMETHAZINE (PHENERGAN) 25 MG TABLET 25 mg. SUMATRIPTAN SUCCINATE 6 MG/0.5ML SOLUTION CARTRIDGE Inject 6 mg under the skin. TOPIRAMATE (TOPAMAX) 25 MG TABLET Take 25 mg by mouth twice a day. ALLERGIES Fentanyl, Iodine, Metronidazole, Salicylates, Cephalexin, Gadolinium derivatives, Iodinated contrast media, Nsaids, Ondansetron, Penicillins, Promethazine, Toradol [ketorolac tromethamine], Chlorhexidine, Ciprofloxacin, and Dicyclomine FAMILY HISTORY Family History Problem Relation Name Age of Onset Other (34513) Mother blood clots Hyperlipidemia Mother High Blood Pressure Mother SOCIAL HISTORY Social History Socioeconomic History Marital status: Tobacco Use Smoking status: Every Day Current packs/day: 0.50 Types: Cigarettes Smokeless tobacco: Never Vaping Use Vaping status: Never Used Substance and Sexual Activity Alcohol use: Yes Alcohol/week: 0.0 standard drinks of alcohol Drug use: Yes Types: Marijuana Comment: occasional gummy Social Drivers of Health Financial Resource Strain: Patient Declined (12/14/2023) Received from [facility] Overall Financial Resource Strain (CARDIA) Difficulty of Paying Living Expenses: Patient declined Food Insecurity: Patient Declined (12/14/2023) Received from [facility] Hunger Vital Sign Worried About Running Out of Food in the Last Year: Patient declined Ran Out of Food in the Last Year: Patient declined Transportation Needs: Patient Declined (12/14/2023) Received from [facility] PRAPARE - Transportation Lack of Transportation (Medical): Patient declined Lack of Transportation (Non-Medical): Patient declined Physical Activity: Patient Declined (12/14/2023) Received from [facility] Exercise Vital Sign Days of Exercise per Week: Patient declined Minutes of Exercise per Session: Patient declined Stress: No Stress Concern Present (11/15/2020) Received from [facility], [facility] Citizen Of [place] [employer] Occupational Health - Occupational Stress Questionnaire Feeling of Stress : Only a little Social Connections: Unknown (12/14/2023) Received from [facility] Social Connection and Isolation Panel [NHANES] Active Member of Clubs or Organizations: Patient declined Marital Status: Patient declined Housing Stability: Patient Declined (12/14/2023) Received from [facility] Housing Stability Vital Sign Unable to Pay for Housing in the Last Year: Patient declined Unstable Housing in the Last Year: Patient declined SCREENINGS PHYSICAL EXAM ED Triage Vitals [12/17/24 1159] Temp Heart Rate Resp BP 36.8 C (98.2 F) 77 18 (!) 130/90 SpO2 Temp Source Heart Rate Source Patient Position 98 % Temporal -- Sitting BP Location FiO2 (%) Right arm -- Physical Exam Vitals and nursing note reviewed. Constitutional: General: She is not in acute distress. Appearance: She is well-developed. HENT: Head: Normocephalic and atraumatic. Eyes: Conjunctiva/sclera: Conjunctivae normal. Pulmonary: Effort: No respiratory distress. Abdominal: Tenderness: There is no abdominal tenderness. Comments: No significant reproducible abdominal tenderness. Skin: General: Skin is warm and dry. Neurological: Mental Status: She is alert. Psychiatric: Mood and Affect: Mood normal. DIAGNOSTIC RESULTS Procedures/EKG: EKG was reviewed by myself. Physician EKG interpretation can be found in [facility] RADIOLOGY (Per Emergency Physician): Interpretation per the Radiologist below, if available at the time of this note: CT abdomen pelvis wo IV contrast (Results Pending) ED BEDSIDE ULTRASOUND: Performed by ED Physician - none LABS: Labs Reviewed VAGINITIS PANEL MVP PCR CHLAMYDIA/GONORRHEA CBC WITH AUTO DIFFERENTIAL COMPREHENSIVE METABOLIC PANEL LIPASE COMPLETE URINALYSIS WITH REFLEX TO CULTURE Narrative: The following orders were created for panel order Urinalysis Complete with reflex to Culture. Procedure Abnormality Status --------- ------ Complete Urinalysis[[id number]] Please view results for these tests on the individual orders. COMPLETE URINALYSIS All other labs were within normal range or not returned as of this dictation. EMERGENCY DEPARTMENT COURSE and DIFFERENTIAL DIAGNOSIS/MDM: Vitals: Vitals: 12/17/24 1159 BP: (!) 130/90 BP Location: Right arm Patient Position: Sitting Pulse: 77 Resp: 18 Temp: 36.8 C (98.2 F) TempSrc: Temporal SpO2: 98% Weight: 88.5 kg (195 lb) Height: 1.549 m (5' 1) Patient presented lower abdominal pain she is awake alert well-appearing vitals all stable was calmand cooperative she has relatively benign exam. She says Acushnet at home is not controlling her pain.This is her third ER visit in the last week for similar. Plan to repeat a CT check lab work and urinalysis will send off swabs For STIs she is declining to have me do a pelvic exam. Plan to dischargeif formal benign Diagnoses as of 12/17/24 1400 Abdominal pain, unspecified abdominal location Medications sodium chloride 0.9 % bolus 1,000 mL (1,000 mL IntraVENous New Bag 12/17/24 1250) HYDROmorphone (Dilaudid) injection 1 mg (1 mg IntraVENous Given 12/17/24 1250) metoclopramide (Reglan) injection 10 mg (10 mg IntraVENous Given 12/17/24 1249) REVAL: CRITICAL CARE TIME CONSULTS: None PROCEDURES: Unless otherwise noted below, none Procedures Patients symptoms are consistent with sepsis, severe sepsis, or septic shock (If yes use .sepsiscoremeasure): FINAL IMPRESSION No diagnosis found. DISPOSITION PATIENT REFERRED TO: No follow-up provider specified. DISCHARGE MEDICATIONS: New Prescriptions No medications on file (Comment: Please note this report has been produced using speech recognition software and may contain errors related to that system including errors in grammar, punctuation, and spelling, as well as words and phrases that may be inappropriate. If there are any questions or concerns please feel freeto contact the dictating provider for clarification.) Emiliano White MD (electronically signed) Emergency Medicine Provider Emiliano White MD 12/17/24 1301 * Silvia Lofton RN - 12/17/2024 11:40 AM EDT Pt to ER with complaint of pelvic pain. And vaginal discharge. States she has had a hysterectomy. Pt was seen at [place] recently for same and has not improved. Taking Acushnet without relief. Rates pain 9/10 at this time. States had some slightly bloody vaginal discharge. Denies urinary symptoms, vomiting or diarrhea. + nausea which is unrelieved by Zofran. Pt ambulatory on arrival with steady gait. Alert and oriented x 4. Skin warm and dry. Respirations even and unlabored. Pt changed into hospital gown. Call light in reach. documented in this [place] [id number] Emergency department Note* Silvia Lofton RN - 12/17/2024 2:16 PM EDT Discussed with pt the need to get a ride home due to receiving IV narcotic pain medication. Pt states she will sit in the waiting room and not drive home. [id number] Emergency department Note* Silvia Lofton RN - 12/17/2024 12:40 PM EDT Pt instructed on self swab for GC/ chlamydia and verbalized understanding [id number] Emergency department Triage note* Silvia Lofton RN - 12/17/2024 11:40 AM EDT Pt to ER with complaint of pelvic pain. And vaginal discharge. States she has had a hysterectomy. Pt was seen at [place] recently for same and has not improved. Taking Acushnet without relief. Rates pain 9/10 at this time. States had some slightly bloody vaginal discharge. Denies urinary symptoms, vomiting or diarrhea. + nausea which is unrelieved by Zofran. Pt ambulatory on arrival with steady gait. Alert and oriented x 4. Skin warm and dry. Respirations even and unlabored. Pt changed into hospital gown. Call light in reach. [facility] [id number] Physician Emergency department Note* Emiliano White MD - 12/17/2024 11:40 AM EDT EMERGENCY DEPARTMENT ENCOUNTER Pt Name: Sally Vargas Birthdate 1980 Date of evaluation: 12/17/2024 ED Provider: Emiliano White MD CHIEF COMPLAINT Chief Complaint Patient presents with Abdominal Pain Vaginal Discharge HISTORY OF PRESENT ILLNESS (Location/Symptom, Timing/Onset, Context/Setting, Quality, Duration, Modifying Factors, Severity) Note limiting factors. I wore appropriate PPE for the entirety of this encounter. HPI Sally Vargas is a 44 y.o. who presents to the emergency department with chief complaint of chronic lower abdominal pain she had a hysterectomy for similar but is had worsening pain since July.She was seen twice in the last week had a CT and transvaginal ultrasound as well as blood work all of its come back reassuring. She has follow-up with [facility] in 4 days Nursing Notes were reviewed. Limitations to history: Outside historians: REVIEW OF SYSTEMS Review of Systems Pertinent positives and negatives as per HPI. PAST MEDICAL HISTORY Past Medical History: Diagnosis Date Cancer (CMS/HCC) (HCC) Chicken pox High cholesterol History of blood transfusion 2006 Kidney stones Right ureteral calculus 09/05/2019 SURGICAL HISTORY Past Surgical History: Procedure Laterality Date CHOLECYSTECTOMY CYSTOSCOPY 09/05/2019 cystoscopy, bilateral retrograde pyelograms, right ureteroscopy EXPLORATORY LAPAROTOMY Laparotomy RSO EXPLORATORY LAPAROTOMY 12/02/2016 exp lap, extensive lysis of adhesions, left ureterlysis and excision of left pelvic sidewall HYSTERECTOMY LAPAROSCOPY DIAGNOSTIC / BIOPSY / ASPIRATION / LYSIS LIVER SURGERY 2019 removed cyst URETEROSCOPY Right 09/05/2019 C&P ( normal bilat). Right ureteroscopy-negative ( passessed stones). [place] CURRENT MEDICATIONS Previous Medications COLESTIPOL (COLESTID) 1 G TABLET Take 1 g by mouth twice a day. EPINEPHRINE (EPIPEN) 0.3 MG/0.3ML INJECTION SYRINGE As directed ESTRADIOL (ESTRACE) 0.5 MG TABLET TAKE 1 TABLET BY MOUTH EVERY DAY GABAPENTIN (NEURONTIN) 400 MG CAPSULE Take 400 mg by mouth every 12 hours. HYDROCODONE-ACETAMINOPHEN (NORCO) 5-325 MG TABLET Take 1 tablet by mouth every 6 hours as needed for severe pain (7-10) for up to 5 days. HYDROCODONE-ACETAMINOPHEN (NORCO) 5-325 MG TABLET Dose = 1 tab(s), Oral, q6h, PRN for pain, tab(s),0 Refill(s), 95.1 ONDANSETRON ODT (ZOFRAN-ODT) 4 MG DISINTEGRATING TABLET 4 mg. PANTOPRAZOLE (PROTONIX) 40 MG EC TABLET Take 40 mg by mouth. PAROXETINE (PAXIL) 10 MG TABLET TAKE 1 TABLET (10 MG) BY MOUTH DAILY. PROMETHAZINE (PHENERGAN) 25 MG TABLET 25 mg. SUMATRIPTAN SUCCINATE 6 MG/0.5ML SOLUTION CARTRIDGE Inject 6 mg under the skin. TOPIRAMATE (TOPAMAX) 25 MG TABLET Take 25 mg by mouth twice a day. ALLERGIES Fentanyl, Iodine, Metronidazole, Salicylates, Cephalexin, Gadolinium derivatives, Iodinated contrast media, Nsaids, Ondansetron, Penicillins, Promethazine, Toradol [ketorolac tromethamine], Chlorhexidine, Ciprofloxacin, and Dicyclomine FAMILY HISTORY Family History Problem Relation Name Age of Onset Other (08598) Mother blood clots Hyperlipidemia Mother High Blood Pressure Mother SOCIAL HISTORY Social History Socioeconomic History Marital status: Tobacco Use Smoking status: Every Day Current packs/day: 0.50 Types: Cigarettes Smokeless tobacco: Never Vaping Use Vaping status: Never Used Substance and Sexual Activity Alcohol use: Yes Alcohol/week: 0.0 standard drinks of alcohol Drug use: Yes Types: Marijuana Comment: occasional gummy Social Drivers of Health Financial Resource Strain: Patient Declined (12/14/2023) Received from [facility] Overall Financial Resource Strain (CARDIA) Difficulty of Paying Living Expenses: Patient declined Food Insecurity: Patient Declined (12/14/2023) Received from [facility] Hunger Vital Sign Worried About Running Out of Food in the Last Year: Patient declined Ran Out of Food in the Last Year: Patient declined Transportation Needs: Patient Declined (12/14/2023) Received from [facility] PRAPARE - Transportation Lack of Transportation (Medical): Patient declined Lack of Transportation (Non-Medical): Patient declined Physical Activity: Patient Declined (12/14/2023) Received from [facility] Exercise Vital Sign Days of Exercise per Week: Patient declined Minutes of Exercise per Session: Patient declined Stress: No Stress Concern Present (11/15/2020) Received from [facility], [facility] Citizen Of [place] [employer] Occupational Health - Occupational Stress Questionnaire Feeling of Stress : Only a little Social Connections: Unknown (12/14/2023) Received from [facility] Social Connection and Isolation Panel [NHANES] Active Member of Clubs or Organizations: Patient declined Marital Status: Patient declined Housing Stability: Patient Declined (12/14/2023) Received from [facility] Housing Stability Vital Sign Unable to Pay for Housing in the Last Year: Patient declined Unstable Housing in the Last Year: Patient declined SCREENINGS PHYSICAL EXAM ED Triage Vitals [12/17/24 1159] Temp Heart Rate Resp BP 36.8 C (98.2 F) 77 18 (!) 130/90 SpO2 Temp Source Heart Rate Source Patient Position 98 % Temporal -- Sitting BP Location FiO2 (%) Right arm -- Physical Exam Vitals and nursing note reviewed. Constitutional: General: She is not in acute distress. Appearance: She is well-developed. HENT: Head: Normocephalic and atraumatic. Eyes: Conjunctiva/sclera: Conjunctivae normal. Pulmonary: Effort: No respiratory distress. Abdominal: Tenderness: There is no abdominal tenderness. Comments: No significant reproducible abdominal tenderness. Skin: General: Skin is warm and dry. Neurological: Mental Status: She is alert. Psychiatric: Mood and Affect: Mood normal. DIAGNOSTIC RESULTS Procedures/EKG: EKG was reviewed by myself. Physician EKG interpretation can be found in [facility] RADIOLOGY (Per Emergency Physician): Interpretation per the Radiologist below, if available at the time of this note: CT abdomen pelvis wo IV contrast (Results Pending) ED BEDSIDE ULTRASOUND: Performed by ED Physician - none LABS: Labs Reviewed VAGINITIS PANEL MVP PCR CHLAMYDIA/GONORRHEA CBC WITH AUTO DIFFERENTIAL COMPREHENSIVE METABOLIC PANEL LIPASE COMPLETE URINALYSIS WITH REFLEX TO CULTURE Narrative: The following orders were created for panel order Urinalysis Complete with reflex to Culture. Procedure Abnormality Status --------- ------ Complete Urinalysis[[id number]] Please view results for these tests on the individual orders. COMPLETE URINALYSIS All other labs were within normal range or not returned as of this dictation. EMERGENCY DEPARTMENT COURSE and DIFFERENTIAL DIAGNOSIS/MDM: Vitals: Vitals: 12/17/24 1159 BP: (!) 130/90 BP Location: Right arm Patient Position: Sitting Pulse: 77 Resp: 18 Temp: 36.8 C (98.2 F) TempSrc: Temporal SpO2: 98% Weight: 88.5 kg (195 lb) Height: 1.549 m (5' 1) Patient presented lower abdominal pain she is awake alert well-appearing vitals all stable was calmand cooperative she has relatively benign exam. She says Acushnet at home is not controlling her pain.This is her third ER visit in the last week for similar. Plan to repeat a CT check lab work and urinalysis will send off swabs For STIs she is declining to have me do a pelvic exam. Plan to dischargeif formal benign Diagnoses as of 12/17/24 1400 Abdominal pain, unspecified abdominal location Medications sodium chloride 0.9 % bolus 1,000 mL (1,000 mL IntraVENous New Bag 12/17/24 1250) HYDROmorphone (Dilaudid) injection 1 mg (1 mg IntraVENous Given 12/17/24 1250) metoclopramide (Reglan) injection 10 mg (10 mg IntraVENous Given 12/17/24 1249) REVAL: CRITICAL CARE TIME CONSULTS: None PROCEDURES: Unless otherwise noted below, none Procedures Patients symptoms are consistent with sepsis, severe sepsis, or septic shock (If yes use .sepsiscoremeasure): FINAL IMPRESSION No diagnosis found. DISPOSITION PATIENT REFERRED TO: No follow-up provider specified. DISCHARGE MEDICATIONS: New Prescriptions No medications on file (Comment: Please note this report has been produced using speech recognition software and may contain errors related to that system including errors in grammar, punctuation, and spelling, as well as words and phrases that may be inappropriate. If there are any questions or concerns please feel freeto contact the dictating provider for clarification.) Emiliano White MD (electronically signed) Emergency Medicine Provider Emiliano White MD 12/17/24 1301 [id number] Telephone encounter Note* Telephone Encounter - Tamara Castillo MA - 12/15/2024 11:19 AM EDT LVM for patient to return call to schedule ED follow up [id number] Miscellaneous Notes* Telephone Encounter - Tamara Castillo MA - 12/15/2024 11:19 AM EDT LVM for patient to return call to schedule ED follow up * Telephone Encounter - Marisa Membreno - 12/15/2024 10:27 AM EDT Name of Caller: Sally Contact Reason for Appointment: Patient was seen in the ED for abdominal pain 12-15. Patient states she needs to be seen right away. Unable to find a sooner appointment. Has not been seen with Dr. Maciel over 3 years. Please Advise. Office Name: OBGYN Medication Refills need, if any: N/A Medication Name: N/A [id number] Telephone encounter Note* Telephone Encounter - Marisa Membreno - 12/15/2024 10:27 AM EDT Name of Caller: Sally Contact Reason for Appointment: Patient was seen in the ED for abdominal pain 12-15. Patient states she needs to be seen right away. Unable to find a sooner appointment. Has not been seen with Dr. Maciel over 3 years. Please Advise. Office Name: OBGYN Medication Refills need, if any: N/A Medication Name: N/A [id number] Emergency department Note* Amanda Naht RN - 12/15/2024 3:30 AM EDT IV removed from right AC prior to DC [id number] Emergency department Note* Amanda Nath RN - 12/15/2024 3:30 AM EDT IV removed from right AC prior to DC * Fan Wesley DO - 12/15/2024 12:41 AM EDT Emergency Department Encounter [facility] ED Patient: Sally Vargas : 1980 Date of Evaluation: 12/15/2024 ED Provider: Fan Wesley DO Chief Complaint Chief Complaint Patient presents with Abdominal Pain Pt reports abd pain with nausea for the past 4 days, reports she went to the restroom and noticed blood in her underwear, she reports a hx of a total hysterectomy GAKONAJustyna Vargas is a 44 y.o. female who presents to the emergency department complaining of abdominal pain. Patient explains that she was in the department a few days prior for abdominal cramping. She felt like when she had a menstrual cycle but has history of a hysterectomy and oophorectomy bilaterally. She was evaluated CT scan, ultrasound and ultimately no abnormalities were noted. She was told that she may have endometriosis. She was discharged on Vicodin. She states she was taking the medication but has been having worsening symptoms. She continues to have pain. Today she noticed blood in her underwear. She noticed this after she urinated. She is unsure where the blood came from but itdoes note that it did not come from her rectum. Denies fevers or chills. Additional history obtained from : n/a Barriers to obtaining history from patient: n/a ROS: Review of Systems completed as follows: (Bold = positive, Not bold = negative) GENERAL: fevers, chills, malaise ENT: runny nose, congestion, sore throat, ear pain NEURO: weakness, numbness of tingling, headache CARDIOVASCULAR: chest pain, syncope PULMONARY: shortness of breath, cough, wheezing GASTROINTESTINAL: nausea, vomiting, abdominal pain, diarrhea, constipation, MUSCULOSKELETAL: pain GENITAL/URINARY: dysuria, hematuria, increased urinary frequency, hesitancy, flank pain SKIN: rash, lesions, wound Past History Past Medical History: Diagnosis Date Cancer (CMS/HCC) (HCC) Chicken pox High cholesterol History of blood transfusion 2007 Kidney stones Right ureteral calculus 09/05/2019 Past Surgical History: Procedure Laterality Date CHOLECYSTECTOMY CYSTOSCOPY 09/05/2019 cystoscopy, bilateral retrograde pyelograms, right ureteroscopy EXPLORATORY LAPAROTOMY Laparotomy RSO EXPLORATORY LAPAROTOMY 12/02/2016 exp lap, extensive lysis of adhesions, left ureterlysis and excision of left pelvic sidewall HYSTERECTOMY LAPAROSCOPY DIAGNOSTIC / BIOPSY / ASPIRATION / LYSIS LIVER SURGERY 2019 removed cyst URETEROSCOPY Right 09/05/2019 C&P ( normal bilat). Right ureteroscopy-negative ( passessed stones). [place] Social History Socioeconomic History Marital status: Tobacco Use Smoking status: Every Day Current packs/day: 0.50 Types: Cigarettes Smokeless tobacco: Never Substance and Sexual Activity Alcohol use: Yes Alcohol/week: 0.0 standard drinks of alcohol Drug use: Never Social Drivers of Health Financial Resource Strain: Patient Declined (12/14/2023) Received from [facility] Overall Financial Resource Strain (CARDIA) Difficulty of Paying Living Expenses: Patient declined Food Insecurity: Patient Declined (12/14/2023) Received from [facility] Hunger Vital Sign Worried About Running Out of Food in the Last Year: Patient declined Ran Out of Food in the Last Year: Patient declined Transportation Needs: Patient Declined (12/14/2023) Received from [facility] PRAPARE - Transportation Lack of Transportation (Medical): Patient declined Lack of Transportation (Non-Medical): Patient declined Physical Activity: Patient Declined (12/14/2023) Received from [facility] Exercise Vital Sign Days of Exercise per Week: Patient declined Minutes of Exercise per Session: Patient declined Stress: No Stress Concern Present (11/15/2020) Received from [facility], [facility] [employer] [facility] - Occupational Stress Questionnaire Feeling of Stress : Only a little Social Connections: Unknown (12/14/2023) Received from [facility] Social Connection and Isolation Panel [NHANES] Active Member of Clubs or Organizations: Patient declined Marital Status: Patient declined Housing Stability: Patient Declined (12/14/2023) Received from [facility] Housing Stability Vital Sign Unable to Pay for Housing in the Last Year: Patient declined Unstable Housing in the Last Year: Patient declined I have reviewed the history above as provided by nursing notes. Medications/Allergies Discharge Medication List as of 12/15/2024 3:14 AM CONTINUE these medications which have NOT CHANGED Details estradiol (Estrace) 0.5 MG tablet TAKE 1 TABLET BY MOUTH EVERY DAY, Starting 06/06/2023, Normal HYDROcodone-acetaminophen (Acushnet) 5-325 MG tablet Take 1 tablet by mouth every 6 hours as needed for severe pain (7-10) for up to 5 days., Starting 12/12/2024, Until 12/17/2024 at 2359, Normal ondansetron (Zofran) 4 MG tablet Take 1 tablet (4 mg) by mouth every 6 hours for 3 days., Starting 12/12/2024, Until Evelyn 12/15/2024, Normal PARoxetine (Paxil) 10 MG tablet TAKE 1 TABLET (10 MG) BY MOUTH DAILY., Starting 06/06/2023, Normal Allergies Allergen Reactions Fentanyl Shortness of breath Iodine Shortness of breath Metronidazole Hives and Shortness of breath Salicylates Itching, Unknown and Other ulcers Cephalexin Itching Gadolinium Derivatives Cough Stopped breathing/ states if benadryl with contrast dye then she is okay Iodinated Contrast Media Nsaids Hives Ondansetron Penicillins Hives Promethazine Hives Toradol [Ketorolac Tromethamine] Chlorhexidine Rash Skin rash Ciprofloxacin Rash Unclear if the pruritic areas of rash were related to medication or not, no prior use Dicyclomine Hives I have reviewed the history above as provided by nursing notes. Physical Exam ED Triage Vitals Temp Heart Rate Resp BP 12/15/24 0048 12/15/24 0048 12/15/24 0048 12/15/24 0048 36.6 C (97.9 F) 106 16 (!) 168/81 SpO2 Temp Source Heart Rate Source Patient Position 12/15/24 0048 12/15/24 0048 12/15/24 0048 12/15/24 0158 100 % Temporal Monitor Lying BP Location FiO2 (%) 12/15/24 0158 -- Left arm GENERAL: The patient appears nourished and normally developed. Vital signs as documented. EYES: PERRL. No scleral icterus or orbital trauma noted. HEENT: Mucous membranes moist. Nares patent without copious rhinorrhea. LUNGS: Lungs are clear to auscultation, without any respiratory distress. CARDIAC: Rhythm is regular. No murmur appreciated ABDOMEN: Nontender, soft, with no obvious masses, and no peritoneal signs. Pelvic exam declined by patient. EXTREMITIES: Non edematous, with no obvious deformities. SKIN: Good color, with no significant rashes. No pallor. NEURO: No obvious neurological deficits, normal sensation and strength bilaterally. Diagnostics Labs: Results for orders placed or performed during the hospital encounter of 12/15/24 CBC auto differential Collection Time: 12/15/24 2:05 AM Result Value Ref Range Auto WBC 10.1 3.6 - 10.7 10*3/uL RBC 4.41 3.80 - 5.20 10*6/uL Hemoglobin 13.3 11.7 - 16.0 g/dL Hematocrit 40.2 35.0 - 47.0 % MCV 91.2 77.0 - 99.0 fL MCH 30.2 26.0 - 34.0 pg MCHC 33.1 30.5 - 36.0 % RDW 13.1 11.5 - 15.0 % Platelets 271 140 - 440 10*3/uL MPV 10.3 9.0 - 12.7 fL nRBC 0.0 0.0 - 2.0 /100 WBCs Neutrophils Relative 53.3 38.0 - 82.0 % Lymphocytes Relative 36.5 15.0 - 45.0 % Monocytes Relative 6.1 5.0 - 13.0 % Eosinophils Relative 2.2 0.0 - 6.0 % Basophils Relative 0.6 0.0 - 2.0 % Immature Grans % 1.3 0.0 - 2.0 % Neutrophils Absolute 5.4 1.8 - 7.5 10*3/uL Lymphocytes Absolute 3.7 1.0 - 4.3 10*3/uL Monocytes Absolute 0.6 0.0 - 0.9 10*3/uL Eosinophils Absolute 0.2 0.0 - 0.5 10*3/uL Basophils Absolute 0.1 0.0 - 0.2 10*3/uL Immature Grans Absolute 0.1 (H) <0.1 10*3/uL Comprehensive metabolic panel Collection Time: 12/15/24 2:05 AM Result Value Ref Range SODIUM 138 136 - 145 mmol/L POTASSIUM 4.8 3.5 - 5.1 mmol/L CHLORIDE 107 98 - 107 mmol/L CARBON DIOXIDE 19 (L) 22 - 29 mmol/L ANION GAP 12 3 - 13 mmol/L UREA NITROGEN 10 8 - 21 mg/dL CREATININE 1.10 0.57 - 1.11 mg/dL GLUCOSE 110 (H) 74 - 100 mg/dL CALCIUM 9.4 8.4 - 10.2 mg/dL AST (SGOT) 48 (H) <34 U/L ALT 28 <30 U/L ALKALINE PHOSPHATASE 123 40 - 150 U/L ALBUMIN 4.2 3.5 - 5.0 g/dL BILIRUBIN, TOTAL 0.4 <1.2 mg/dL TOTAL PROTEIN 8.6 (H) 6.4 - 8.3 g/dL eGFR 63.3 >60.0 mL/min/1.73m*2 Lipase Collection Time: 12/15/24 2:05 AM Result Value Ref Range LIPASE 21 <55 U/L Complete Urinalysis Collection Time: 12/15/24 2:05 AM Result Value Ref Range Color, Urine Light Yellow Lt. Yellow Clarity, Urine Clear Clear pH, Urine 5.5 5.0 - 8.0 pH Leukocytes, Urine 75 (A) Negative Ezra/uL Nitrite, Urine Negative Negative Protein, Urine Negative Negative mg/dL Glucose, Urine Normal Normal (<70) mg/dL Bilirubin, Urine Negative Negative mg/dL Ketones, Urine Negative Negative mg/dL Urobilinogen, Urine Normal Normal (0-1) mg/dL Blood, Urine 0.06 (A) Negative mg/dL RBC, Urine 0-2 0 - 2 /HPF WBC, Urine 3-5 0 - 5 /HPF Squamous Epithelial, Urine 0-2 3 - 5 /HPF Bacteria, Urine Negative Negative /HPF Mucus, Urine Few Negative /LPF Hyaline Casts, Urine 6-10 (A) Negative /LPF SPECIFIC GRAVITY OF URINE (NUMERIC) 1.010 1.005 - 1.030 Radiographs: No orders to display EMERGENCY DEPARTMENT COURSE and DIFFERENTIAL DIAGNOSIS/MDM: Vitals: Vitals: 12/15/24 0048 12/15/24 0158 12/15/24 0330 12/15/24 0333 BP: (!) 168/81 127/65 99/75 BP Location: Left arm Patient Position: Lying Pulse: 106 94 88 Resp: 16 16 16 Temp: 36.6 C (97.9 F) 36.2 C (97.2 F) TempSrc: Temporal Temporal SpO2: 100% 95% 98% The patient presented with a chief complaint of abdominal pain. Vital signs reviewed. Previous workup reviewed. On exam, patient does have suprapubic tenderness. Concern for cystitis, pyelonephritis,obstructive kidney stone, less likely pelvic pathology as patient has had a hysterectomy. I orderedIV morphine for pain, labs, urinalysis. Labs show grossly normal CBC, metabolic panel with carbon oxide level of 19, AST of 48 but no other abnormalities. Urinalysis shows 0.06 blood but no other abnormalities and no red blood cells. I have low concern for UTI, kidney stone or other abnormalities. I do not feel that a repeat CT scan is indicated as patient had no evidence of kidney stone a few days prior. Discussed pelvic exam and patient declined. Ultimately because she had improvement in symptoms after treatment and was agreeable to discharge home. 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 Diagnoses as of 12/15/24 0732 Suprapubic pain ED Medications managed: Medications morphine injection 4 mg (4 mg IntraVENous Given 12/15/249) ondansetron (Zofran) injection 4 mg (4 mg IntraVENous Given 12/15/24 0216) Patients symptoms are consistent with sepsis, severe sepsis or septic shock (if yes, use .sepsiscoremeasure) - no Final Impression 1. Suprapubic pain DISPOSITION discharge Comment: Please note this report has been produced using speech recognition software and may contain errors related to that system including errors in grammar, punctuation, and spelling, as well as words and phrases that may be inappropriate. If there are any questions or concerns please feel free to contact the dictating provider for clarification. Fan Wesley DO [employer] Fan Wesley DO 12/15/24 0738 documented in this [facility]04-03-2025 Hospital Discharge instructions* Discharge Instructions* Fan Wesley DO - 12/15/2024 3:14 AM EDT Please continue to take Tylenol as needed for pain, use the previously prescribed pain medicine andfollow-up with your primary care doctor. I also recommend you follow-up with Dr. Hearn's office. * Attachments The following attachments cannot be sent through Care Everywhere. * Severe Abdominal Pain Discharge Instructions, Adult (Nicaraguan) documented in this [facility]04-03-2025 Physician Emergency department Note* Fan Wesley DO - 12/15/2024 12:41 AM EDT Emergency Department Encounter [facility] ED Patient: Sally Vargas : 1980 Date of Evaluation: 12/15/2024 ED Provider: Fan Wesley DO Chief Complaint Chief Complaint Patient presents with Abdominal Pain Pt reports abd pain with nausea for the past 4 days, reports she went to the restroom and noticed blood in her underwear, she reports a hx of a total hysterectomy GAKONAJustyna Vargas is a 44 y.o. female who presents to the emergency department complaining of abdominal pain. Patient explains that she was in the department a few days prior for abdominal cramping. She felt like when she had a menstrual cycle but has history of a hysterectomy and oophorectomy bilaterally. She was evaluated CT scan, ultrasound and ultimately no abnormalities were noted. She was told that she may have endometriosis. She was discharged on Vicodin. She states she was taking the medication but has been having worsening symptoms. She continues to have pain. Today she noticed blood in her underwear. She noticed this after she urinated. She is unsure where the blood came from but itdoes note that it did not come from her rectum. Denies fevers or chills. Additional history obtained from : n/a Barriers to obtaining history from patient: n/a ROS: Review of Systems completed as follows: (Bold = positive, Not bold = negative) GENERAL: fevers, chills, malaise ENT: runny nose, congestion, sore throat, ear pain NEURO: weakness, numbness of tingling, headache CARDIOVASCULAR: chest pain, syncope PULMONARY: shortness of breath, cough, wheezing GASTROINTESTINAL: nausea, vomiting, abdominal pain, diarrhea, constipation, MUSCULOSKELETAL: pain GENITAL/URINARY: dysuria, hematuria, increased urinary frequency, hesitancy, flank pain SKIN: rash, lesions, wound Past History Past Medical History: Diagnosis Date Cancer (CMS/HCC) (HCC) Chicken pox High cholesterol History of blood transfusion 2006 Kidney stones Right ureteral calculus 09/05/2019 Past Surgical History: Procedure Laterality Date CHOLECYSTECTOMY CYSTOSCOPY 09/05/2019 cystoscopy, bilateral retrograde pyelograms, right ureteroscopy EXPLORATORY LAPAROTOMY Laparotomy RSO EXPLORATORY LAPAROTOMY 12/02/2016 exp lap, extensive lysis of adhesions, left ureterlysis and excision of left pelvic sidewall HYSTERECTOMY LAPAROSCOPY DIAGNOSTIC / BIOPSY / ASPIRATION / LYSIS LIVER SURGERY 2019 removed cyst URETEROSCOPY Right 09/05/2019 C&P ( normal bilat). Right ureteroscopy-negative ( passessed stones). [place] Social History Socioeconomic History Marital status: Tobacco Use Smoking status: Every Day Current packs/day: 0.50 Types: Cigarettes Smokeless tobacco: Never Substance and Sexual Activity Alcohol use: Yes Alcohol/week: 0.0 standard drinks of alcohol Drug use: Never Social Drivers of Health Financial Resource Strain: Patient Declined (12/14/2023) Received from [facility] Overall Financial Resource Strain (CARDIA) Difficulty of Paying Living Expenses: Patient declined Food Insecurity: Patient Declined (12/14/2023) Received from [facility] Hunger Vital Sign Worried About Running Out of Food in the Last Year: Patient declined Ran Out of Food in the Last Year: Patient declined Transportation Needs: Patient Declined (12/14/2023) Received from [facility] PRAPARE - Transportation Lack of Transportation (Medical): Patient declined Lack of Transportation (Non-Medical): Patient declined Physical Activity: Patient Declined (12/14/2023) Received from [facility] Exercise Vital Sign Days of Exercise per Week: Patient declined Minutes of Exercise per Session: Patient declined Stress: No Stress Concern Present (11/15/2020) Received from [facility], [facility] [employer] - Occupational Stress Questionnaire Feeling of Stress : Only a little Social Connections: Unknown (12/14/2023) Received from [facility] Social Connection and Isolation Panel [NHANES] Active Member of Clubs or Organizations: Patient declined Marital Status: Patient declined Housing Stability: Patient Declined (12/14/2023) Received from [facility] Housing Stability Vital Sign Unable to Pay for Housing in the Last Year: Patient declined Unstable Housing in the Last Year: Patient declined I have reviewed the history above as provided by nursing notes. Medications/Allergies Discharge Medication List as of 12/15/2024 3:14 AM CONTINUE these medications which have NOT CHANGED Details estradiol (Estrace) 0.5 MG tablet TAKE 1 TABLET BY MOUTH EVERY DAY, Starting 06/06/2023, Normal HYDROcodone-acetaminophen (Acushnet) 5-325 MG tablet Take 1 tablet by mouth every 6 hours as needed for severe pain (7-10) for up to 5 days., Starting 12/12/2024, Until 12/17/2024 at 2359, Normal ondansetron (Zofran) 4 MG tablet Take 1 tablet (4 mg) by mouth every 6 hours for 3 days., Starting 12/12/2024, Until Evelyn 12/15/2024, Normal PARoxetine (Paxil) 10 MG tablet TAKE 1 TABLET (10 MG) BY MOUTH DAILY., Starting 06/06/2023, Normal Allergies Allergen Reactions Fentanyl Shortness of breath Iodine Shortness of breath Metronidazole Hives and Shortness of breath Salicylates Itching, Unknown and Other ulcers Cephalexin Itching Gadolinium Derivatives Cough Stopped breathing/ states if benadryl with contrast dye then she is okay Iodinated Contrast Media Nsaids Hives Ondansetron Penicillins Hives Promethazine Hives Toradol [Ketorolac Tromethamine] Chlorhexidine Rash Skin rash Ciprofloxacin Rash Unclear if the pruritic areas of rash were related to medication or not, no prior use Dicyclomine Hives I have reviewed the history above as provided by nursing notes. Physical Exam ED Triage Vitals Temp Heart Rate Resp BP 12/15/24 0048 12/15/24 0048 12/15/24 0048 12/15/24 0048 36.6 C (97.9 F) 106 16 (!) 168/81 SpO2 Temp Source Heart Rate Source Patient Position 12/15/24 0048 12/15/24 0048 12/15/24 0048 12/15/24 0158 100 % Temporal Monitor Lying BP Location FiO2 (%) 12/15/24 0158 -- Left arm GENERAL: The patient appears nourished and normally developed. Vital signs as documented. EYES: PERRL. No scleral icterus or orbital trauma noted. HEENT: Mucous membranes moist. Nares patent without copious rhinorrhea. LUNGS: Lungs are clear to auscultation, without any respiratory distress. CARDIAC: Rhythm is regular. No murmur appreciated ABDOMEN: Nontender, soft, with no obvious masses, and no peritoneal signs. Pelvic exam declined by patient. EXTREMITIES: Non edematous, with no obvious deformities. SKIN: Good color, with no significant rashes. No pallor. NEURO: No obvious neurological deficits, normal sensation and strength bilaterally. Diagnostics Labs: Results for orders placed or performed during the hospital encounter of 12/15/24 CBC auto differential Collection Time: 12/15/24 2:05 AM Result Value Ref Range Auto WBC 10.1 3.6 - 10.7 10*3/uL RBC 4.41 3.80 - 5.20 10*6/uL Hemoglobin 13.3 11.7 - 16.0 g/dL Hematocrit 40.2 35.0 - 47.0 % MCV 91.2 77.0 - 99.0 fL MCH 30.2 26.0 - 34.0 pg MCHC 33.1 30.5 - 36.0 % RDW 13.1 11.5 - 15.0 % Platelets 271 140 - 440 10*3/uL MPV 10.3 9.0 - 12.7 fL nRBC 0.0 0.0 - 2.0 /100 WBCs Neutrophils Relative 53.3 38.0 - 82.0 % Lymphocytes Relative 36.5 15.0 - 45.0 % Monocytes Relative 6.1 5.0 - 13.0 % Eosinophils Relative 2.2 0.0 - 6.0 % Basophils Relative 0.6 0.0 - 2.0 % Immature Grans % 1.3 0.0 - 2.0 % Neutrophils Absolute 5.4 1.8 - 7.5 10*3/uL Lymphocytes Absolute 3.7 1.0 - 4.3 10*3/uL Monocytes Absolute 0.6 0.0 - 0.9 10*3/uL Eosinophils Absolute 0.2 0.0 - 0.5 10*3/uL Basophils Absolute 0.1 0.0 - 0.2 10*3/uL Immature Grans Absolute 0.1 (H) <0.1 10*3/uL Comprehensive metabolic panel Collection Time: 12/15/24 2:05 AM Result Value Ref Range SODIUM 138 136 - 145 mmol/L POTASSIUM 4.8 3.5 - 5.1 mmol/L CHLORIDE 107 98 - 107 mmol/L CARBON DIOXIDE 19 (L) 22 - 29 mmol/L ANION GAP 12 3 - 13 mmol/L UREA NITROGEN 10 8 - 21 mg/dL CREATININE 1.10 0.57 - 1.11 mg/dL GLUCOSE 110 (H) 74 - 100 mg/dL CALCIUM 9.4 8.4 - 10.2 mg/dL AST (SGOT) 48 (H) <34 U/L ALT 28 <30 U/L ALKALINE PHOSPHATASE 123 40 - 150 U/L ALBUMIN 4.2 3.5 - 5.0 g/dL BILIRUBIN, TOTAL 0.4 <1.2 mg/dL TOTAL PROTEIN 8.6 (H) 6.4 - 8.3 g/dL eGFR 63.3 >60.0 mL/min/1.73m*2 Lipase Collection Time: 12/15/24 2:05 AM Result Value Ref Range LIPASE 21 <55 U/L Complete Urinalysis Collection Time: 12/15/24 2:05 AM Result Value Ref Range Color, Urine Light Yellow Lt. Yellow Clarity, Urine Clear Clear pH, Urine 5.5 5.0 - 8.0 pH Leukocytes, Urine 75 (A) Negative Ezra/uL Nitrite, Urine Negative Negative Protein, Urine Negative Negative mg/dL Glucose, Urine Normal Normal (<70) mg/dL Bilirubin, Urine Negative Negative mg/dL Ketones, Urine Negative Negative mg/dL Urobilinogen, Urine Normal Normal (0-1) mg/dL Blood, Urine 0.06 (A) Negative mg/dL RBC, Urine 0-2 0 - 2 /HPF WBC, Urine 3-5 0 - 5 /HPF Squamous Epithelial, Urine 0-2 3 - 5 /HPF Bacteria, Urine Negative Negative /HPF Mucus, Urine Few Negative /LPF Hyaline Casts, Urine 6-10 (A) Negative /LPF SPECIFIC GRAVITY OF URINE (NUMERIC) 1.010 1.005 - 1.030 Radiographs: No orders to display EMERGENCY DEPARTMENT COURSE and DIFFERENTIAL DIAGNOSIS/MDM: Vitals: Vitals: 12/15/24 0048 12/15/24 0158 12/15/24 0330 12/15/24 0333 BP: (!) 168/81 127/65 99/75 BP Location: Left arm Patient Position: Lying Pulse: 106 94 88 Resp: 16 16 16 Temp: 36.6 C (97.9 F) 36.2 C (97.2 F) TempSrc: Temporal Temporal SpO2: 100% 95% 98% The patient presented with a chief complaint of abdominal pain. Vital signs reviewed. Previous workup reviewed. On exam, patient does have suprapubic tenderness. Concern for cystitis, pyelonephritis,obstructive kidney stone, less likely pelvic pathology as patient has had a hysterectomy. I orderedIV morphine for pain, labs, urinalysis. Labs show grossly normal CBC, metabolic panel with carbon oxide level of 19, AST of 48 but no other abnormalities. Urinalysis shows 0.06 blood but no other abnormalities and no red blood cells. I have low concern for UTI, kidney stone or other abnormalities. I do not feel that a repeat CT scan is indicated as patient had no evidence of kidney stone a few days prior. Discussed pelvic exam and patient declined. Ultimately because she had improvement in symptoms after treatment and was agreeable to discharge home. 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 Diagnoses as of 12/15/24 0732 Suprapubic pain ED Medications managed: Medications morphine injection 4 mg (4 mg IntraVENous Given 12/15/249) ondansetron (Zofran) injection 4 mg (4 mg IntraVENous Given 12/15/246) Patients symptoms are consistent with sepsis, severe sepsis or septic shock (if yes, use .sepsiscoremeasure) - no Final Impression 1. Suprapubic pain DISPOSITION discharge Comment: Please note this report has been produced using speech recognition software and may contain errors related to that system including errors in grammar, punctuation, and spelling, as well as words and phrases that may be inappropriate. If there are any questions or concerns please feel free to contact the dictating provider for clarification. Fan Wesley DO [employer] Fan Wesley DO 12/15/24 0738 [facility] [id number] Telephone encounter Note* Telephone Encounter - Renetta Gonzales RN - 12/14/2024 11:03 PM EDT S: Patient spoke with [facility] nurse regarding abdominal pain. [facility] 2020. B: Onset of symptoms/concern patient was in ER on 12/12/2024 and states that she was told that pain was from endometriosis. Patient spoke with [facility] nurse blocker and cutter contact lens today and was advised to go to ER. A: She reports blood in toilet water and in the underwear. Abdominal pain is constant and rates pain 9/10. R: Patient advised to follow instructions directing her to ER, she verbalized understanding. No further needs at this time. Reason for Disposition [1] SEVERE pain (e.g., excruciating) AND [2] present > 1 hour Protocols used: Abdominal Pain - ADULT-AH [facility] [id number] Miscellaneous Notes* Telephone Encounter - Renetta Gonzales RN - 12/14/2024 11:03 PM EDT S: Patient spoke with [facility] nurse regarding abdominal pain. [facility] 2020. B: Onset of symptoms/concern patient was in ER on 12/12/2024 and states that she was told that pain was from endometriosis. Patient spoke with [facility] nurse blocker and cutter contact lens today and was advised to go to ER. A: She reports blood in toilet water and in the underwear. Abdominal pain is constant and rates pain 9/10. R: Patient advised to follow instructions directing her to ER, she verbalized understanding. No further needs at this time. Reason for Disposition [1] SEVERE pain (e.g., excruciating) AND [2] present > 1 hour Protocols used: Abdominal Pain - ADULT-AH documented in this [facility] [id number] Telephone encounter Note* Telephone Encounter - Alice Cameron RN - 12/14/2024 10:42 PM EDT Reason For Call Patient complains of vaginal bleeding and severe low belly pain and nausea. Vicodin is not helping belly pain and Zofran not helping her nausea. This evening she found one quarter sized spot of blood in her underwear and seen blood in toilet when she urinated. She thinks the blood is coming from her vagina. History or hysterectomy Patient was seen at [facility] 2 days ago for belly pain and dizziness and diagnosed with an endometriosis flare. She is unable to get a SIGNAL SYSTEM TESTING MAINTAINER appt for one month from now. Vaginal bleeding this evening is a new symptom. Outcome Go To Emergency Room Now (disposition given to patient). Patient plans to drive self to an emergency room but not [facility]. She may use an emergency room in [place]. Advised patient not to drive self. Call 911 if you cannot find a ride or if you develop any new symptoms or your condition gets worse or you become anxious or concerned aboutyour condition. You should go to an emergency room safely. Reason for Disposition SEVERE abdominal pain Additional Information Negative: Shock suspected (e.g., cold/pale/clammy skin, too weak to stand, low BP, rapid pulse) Has not taken BP today Answer Assessment - Initial Assessment Questions 1. BLEEDING SEVERITY: Quarter sized blood spot and blood in toilet water. See My Note 2. ONSET: This evening for bleeding that she thinks is from vagina. 3. MENSTRUAL PERIOD: No longer had menses. She had a hysterectomy. 4. REGULARITY: N/A 5. ABDOMEN PAIN: 8/10 on pain scale for lower tena pain. Pain radiates to lower back. 6. : No 7. : No 8. HORMONE MEDICINES: No 9. BLOOD THINNER MEDICINES: No 10. CAUSE: See my note 11. HEMODYNAMIC STATUS: Mild weakness 12. OTHER SYMPTOMS: Nausea. See My Note Protocols used: Vaginal Bleeding - [id number] [facility]04-02-2025 Miscellaneous Notes* Telephone Encounter - Alice Cameron RN - 12/14/2024 10:42 PM EDT Reason For Call Patient complains of vaginal bleeding and severe low belly pain and nausea. Vicodin is not helping belly pain and Zofran not helping her nausea. This evening she found one quarter sized spot of blood in her underwear and seen blood in toilet when she urinated. She thinks the blood is coming from her vagina. History or hysterectomy Patient was seen at [facility] 2 days ago for belly pain and dizziness and diagnosed with an endometriosis flare. She is unable to get a SIGNAL SYSTEM TESTING MAINTAINER appt for one month from now. Vaginal bleeding this evening is a new symptom. Outcome Go To Emergency Room Now (disposition given to patient). Patient plans to drive self to an emergency room but not [facility]. She may use an emergency room in [place]. Advised patient not to drive self. Call 911 if you cannot find a ride or if you develop any new symptoms or your condition gets worse or you become anxious or concerned aboutyour condition. You should go to an emergency room safely. Reason for Disposition SEVERE abdominal pain Additional Information Negative: Shock suspected (e.g., cold/pale/clammy skin, too weak to stand, low BP, rapid pulse) Has not taken BP today Answer Assessment - Initial Assessment Questions 1. BLEEDING SEVERITY: Quarter sized blood spot and blood in toilet water. See My Note 2. ONSET: This evening for bleeding that she thinks is from vagina. 3. MENSTRUAL PERIOD: No longer had menses. She had a hysterectomy. 4. REGULARITY: N/A 5. ABDOMEN PAIN: 8/10 on pain scale for lower tena pain. Pain radiates to lower back. 6. : No 7. : No 8. HORMONE MEDICINES: No 9. BLOOD THINNER MEDICINES: No 10. CAUSE: See my note 11. HEMODYNAMIC STATUS: Mild weakness 12. OTHER SYMPTOMS: Nausea. See My Note Protocols used: Vaginal Bleeding - [id number] [facility] * Telephone Encounter - Abi Galicia MSW - 12/13/2024 12:25 PM EDT Sw called and left patient message in regards to follow up on discussion of medication cost issue. Scott will send patient My Chart message with patient assistance info. [facility]04-01[facility] Miscellaneous Notes* Telephone Encounter - Abi Galicia MSW - 12/13/2024 12:25 PM EDT Sw called and left patient message in regards to follow up on discussion of medication cost issue. Sw will send patient My Chart message with patient assistance info. * Telephone Encounter - Abi Galicia MSW - 12/13/2024 10:40 AM EDT Sw reviewed patient medication list. Patient medications show up on Rx Outreach. There is a cost tomedications on Rx Outreach. Sw can let patient know this information. * Telephone Encounter - Abi Galicia MSW - 12/09/2024 10:15 AM EDT Sw spoke with patient in regards to medication cost issue. Patient also notes that she needs help with clearance to see medical providers. Sw noted patient has My Chart message from [employer] Saini. Patient reports that she cannot remember her password to My Chart. Sw noted Yeny phone number for patient to reach out to her regarding HCAP. Patient also notes that e has been turned down 2x for disability. Patient notes that she has appealed and been denied. Patient reports currently working for [employer]. No longer has her Medicaid due to this. Patient notes that she has reapplied for Medicaid, needs to submit documents to finalize her Medicaid application with [employer]. This Sw mentioned checking with [employer] for help with medication cost needs. Patient states I do not go to [employer]. This Sw will review patient medication listing and call patient back next week with any patient assistance program options [facility] Note * Telephone Encounter - Abi Galicia MSW - 12/13/2024 10:40 AM EDT Scott reviewed patient medication list. Patient medications show up on Rx Outreach. There is a cost tomedications on Rx Outreach. Scott can let patient know this information. [facility] Hospital Discharge instructions* Discharge Instructions* Fay Kevin PA-C - 12/12/2024 4:54 PM EDT You were seen in the emergency department today for evaluation of abdominal/pelvic pain. All of your lab work and imaging is reassuring. Your CT scan does show a small left-sided kidney stone, but I do not believe this is causing your symptoms today. I believe your symptoms are likely secondary to y our underlying endometriosis. I would like you to follow-up closely with your primary care provider, and schedule an appointment to be seen a soon as possible by her PLANT OPERATOR CONTROL ROOM OPERATOR. I am going to send you with something to have on hand for pain and nausea. Please take these as prescribed and return to the emergency department should anything change or worsen. * Attachments The following attachments cannot be sent through Care Everywhere. * Chronic Pelvic Pain Discharge Instructions (Nicaraguan) documented in this [facility]03-31-2025 Emergency department Note* Fay Kevin PA-C - 12/12/2024 2:33 PM EDT EMERGENCY DEPARTMENT ENCOUNTER Pt Name: Sally Vargas Birthdate 1980 Date of evaluation: 12/12/2024 ED Provider: Fay Kevin PA-C CHIEF COMPLAINT Chief Complaint Patient presents with Abdominal Pain Nausea Pt arrives from home for nausea and abdominal pain over the last few days. Pt states she called herP and was told to come to ER . Pt endorses fever, chills at home, pain 9/10 in triage HISTORY OF PRESENT ILLNESS (Location/Symptom, Timing/Onset, Context/Setting, Quality, Duration, Modifying Factors, Severity) Note limiting factors. I wore appropriate PPE for the entirety of this encounter. HPI Sally Vargas is a 44 y.o. female with who presents to the emergency department for evaluation ofabdominal/pelvic pain. According to the patient she has a history of some type of gynecologic cancer, and is status post total hysterectomy, and bilateral salpingo-oophorectomy. Has had multiple surgeries for diagnosis and treatment of endometriosis, with history of adhesions. States over the last couple of months, she has been dealing with ongoing abdominal/pelvic pain. Has been seen for this, most recently around 2 weeks ago at [place] and had a negative CT at that time. States this most recent flare of abdominal pain has been ongoing for the last couple of days with associated nausea. No actual episodes of emesis. No fevers, but does endorse chills. No dysuria, hematuria, urgency, or frequency, but does have history of renal stones. 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 Still passing gas and having bowel movements. Has not appreciated a blood in her stool. No concern for STD exposure, and is not currently having any vaginal discharge or bleeding. Has not yet taken anything for pain. States she does also have history of pancreatitis, but denies any drug or alcohol use. No recent changes in her medications. States last time she got a CT scan with IV contrast it made her skin burn. Nursing Notes were reviewed. Limitations to history: None Outside historians: None REVIEW OF SYSTEMS Review of Systems 14 systems reviewed, positives and pertinent negatives as per HPI. All other systems were reviewed and are negative. PAST MEDICAL HISTORY Past Medical History: Diagnosis Date Cancer (CMS/HCC) Chicken pox High cholesterol History of blood transfusion 2007 Kidney stones Right ureteral calculus 09/05/2019 SURGICAL HISTORY Past Surgical History: Procedure Laterality Date CHOLECYSTECTOMY CYSTOSCOPY 09/05/2019 cystoscopy, bilateral retrograde pyelograms, right ureteroscopy EXPLORATORY LAPAROTOMY Laparotomy RSO EXPLORATORY LAPAROTOMY 12/02/2016 exp lap, extensive lysis of adhesions, left ureterlysis and excision of left pelvic sidewall HYSTERECTOMY LAPAROSCOPY DIAGNOSTIC / BIOPSY / ASPIRATION / LYSIS LIVER SURGERY 2019 removed cyst URETEROSCOPY Right 09/05/2019 C&P ( normal bilat). Right ureteroscopy-negative ( passessed stones). [facility] CURRENT MEDICATIONS Discharge Medication List as of 12/12/2024 4:55 PM CONTINUE these medications which have NOT CHANGED Details estradiol (Estrace) 0.5 MG tablet TAKE 1 TABLET BY MOUTH EVERY DAY, Starting 06/06/2023, Normal PARoxetine (Paxil) 10 MG tablet TAKE 1 TABLET (10 MG) BY MOUTH DAILY., Starting 06/06/2023, Normal ALLERGIES Iodinated contrast media, Nsaids, Penicillins, and Toradol [ketorolac tromethamine] FAMILY HISTORY Family History Problem Relation Name Age of Onset Other (34570) Mother blood clots Hyperlipidemia Mother High Blood Pressure Mother SOCIAL HISTORY Social History Socioeconomic History Marital status: Tobacco Use Smoking status: Every Day Current packs/day: 0.50 Types: Cigarettes Smokeless tobacco: Never Substance and Sexual Activity Alcohol use: Yes Alcohol/week: 0.0 standard drinks of alcohol Drug use: Never Social Drivers of Health Financial Resource Strain: Patient Declined (12/14/2023) [facility] Overall Financial Resource Strain (CARDIA) Difficulty of Paying Living Expenses: Patient declined Food Insecurity: Patient Declined (12/14/2023) [facility] Hunger Vital Sign Worried About Running Out of Food in the Last Year: Patient declined Ran Out of Food in the Last Year: Patient declined Transportation Needs: Patient Declined (12/14/2023) [facility] PRAPARE - Transportation Lack of Transportation (Medical): Patient declined Lack of Transportation (Non-Medical): Patient declined Physical Activity: Patient Declined (12/14/2023) [facility] Exercise Vital Sign Days of Exercise per Week: Patient declined Minutes of Exercise per Session: Patient declined Stress: No Stress Concern Present (11/15/2020) [facility] Citizen Of [place] [employer] Occupational Health - Occupational Stress Questionnaire Feeling of Stress : Only a little Social Connections: Unknown (12/14/2023) Re[facility] Social Connection and Isolation Panel [NHANES] Active Member of Clubs or Organizations: Patient declined Marital Status: Patient declined Housing Stability: Patient Declined (12/14/2023) Re[facility] Housing Stability Vital Sign Unable to Pay for Housing in the Last Year: Patient declined Unstable Housing in the Last Year: Patient declined SCREENINGS PHYSICAL EXAM ED Triage Vitals [12/12/24 1439] Temp Heart Rate Resp BP 36.7 C (98 F) 90 24 127/65 SpO2 Temp Source Heart Rate Source Patient Position 97 % Temporal Monitor -- BP Location FiO2 (%) -- -- Physical Exam Vitals and nursing note reviewed. Constitutional: General: She is not in acute distress. Appearance: She is well-developed. Comments: Afebrile nontoxic. Speaking comfortably in full sentences. HENT: Head: Normocephalic and atraumatic. Eyes: Conjunctiva/sclera: Conjunctivae normal. Cardiovascular: Rate and Rhythm: Normal rate and regular rhythm. Heart sounds: No murmur heard. Pulmonary: Effort: Pulmonary effort is normal. No respiratory distress. Breath sounds: Normal breath sounds. Abdominal: Palpations: Abdomen is soft. Comments: Generalized diffuse tenderness throughout all quadrants, though without guarding or rebound. No reproducible CVA tenderness. Bowel sounds present. Musculoskeletal: General: No swelling. Cervical back: Neck supple. Skin: General: Skin is warm and dry. Capillary Refill: Capillary refill takes less than 2 seconds. Neurological: Mental Status: She is alert. Psychiatric: Mood and Affect: Mood normal. DIAGNOSTIC RESULTS RADIOLOGY (Per Emergency Physician): Interpretation per the Radiologist below, if available at the time of this note: US pelvis transvaginal Final Result Status post hysterectomy and bilateral oophorectomies. No acute pelvic abnormality is identified. Report Dictated on Electronically Signed By: Barb Sanders MD Electronically Signed Date/Time: 12/12/2024 4:[address] abdomen pelvis wo IV contrast Final Result 1. Punctate nonobstructive left renal calculi. 2. Hepatic steatosis. Report Dictated on Electronically Signed By: Juaquin Raya MD Electronically Signed Date/Time: 12/12/2024 4:39 PM EDT LABS: Labs Reviewed CBC WITH AUTO DIFFERENTIAL - Abnormal Result Value Auto WBC 8.2 RBC 4.63 Hemoglobin 14.3 Hematocrit 42.3 MCV 91.4 MCH 30.9 MCHC 33.8 RDW 13.3 Platelets 302 MPV 10.1 nRBC 0.0 Neutrophils Relative 54.2 Lymphocytes Relative 34.8 Monocytes Relative 6.4 Eosinophils Relative 2.3 Basophils Relative 0.7 Immature Grans % 1.6 Neutrophils Absolute 4.5 Lymphocytes Absolute 2.9 Monocytes Absolute 0.5 Eosinophils Absolute 0.2 Basophils Absolute 0.1 Immature Grans Absolute 0.1 (*) COMPREHENSIVE METABOLIC PANEL - Abnormal SODIUM 142 POTASSIUM 4.1 CHLORIDE 107 CARBON DIOXIDE 24 ANION GAP 11 UREA NITROGEN 9 CREATININE 1.00 GLUCOSE 85 CALCIUM 9.6 AST (SGOT) 23 ALT 30 (*) ALKALINE PHOSPHATASE 136 ALBUMIN 4.4 BILIRUBIN, TOTAL 0.6 TOTAL PROTEIN 8.3 eGFR 70.9 LIPASE - Normal LIPASE 28 COMPLETE URINALYSIS - Normal Color, Urine Light Yellow Clarity, Urine Clear pH, Urine 5.5 Leukocytes, Urine Negative Nitrite, Urine Negative Protein, Urine Negative Glucose, Urine Normal Bilirubin, Urine Negative Ketones, Urine Negative Urobilinogen, Urine Normal Blood, Urine Negative SPECIFIC GRAVITY OF URINE (NUMERIC) 1.006 COMPLETE URINALYSIS WITH REFLEX TO CULTURE Narrative: The following orders were created for panel order Complete Urinalysis with reflex to Culture. Procedure Abnormality Status --------- ------ Complete Urinalysis[[id number]] Normal Final result Please view results for these tests on the individual orders. All other labs were within normal range or not returned as of this dictation. EMERGENCY DEPARTMENT COURSE and DIFFERENTIAL DIAGNOSIS/MDM: Vitals: Vitals: 12/12/24 1436 12/12/24 1439 12/12/24 1729 BP: 127/65 104/60 Pulse: 90 80 Resp: 24 18 Temp: 36.7 C (98 F) TempSrc: Temporal SpO2: 97% 99% Weight: 92.1 kg (203 lb) Height: 1.549 m (5' 1) Medications sodium chloride 0.9 % bolus 1,000 mL (0 mL IntraVENous Stopped 12/12/24 1638) ondansetron (Zofran) injection 4 mg (4 mg IntraVENous Given 12/12/24 153) morphine injection 4 mg (4 mg IntraVENous Given 12/12/24 153) oxyCODONE-acetaminophen (Percocet) 5-325 MG per tablet 1 tablet (1 tablet Oral Given 12/12/24 172) I independently evaluated the patient with supervising attending physician available as needed for collaboration. Nursing notes and medical records reviewed. Differential considerations included obstruction, colitis, pancreatitis, diverticulitis, urolithiasis, pyelonephritis, acute cystitis, endometriosis, pelvic mass, vaginitis Initial medical management includes Zofran, morphine, IV fluids Initial workup includes CBC, CMP, lipase, UA, CT abdomen and pelvis, transvaginal ultrasound. Upon reassessment patient remains nontoxic. No acute distress. Vital signs stable. Passed p.o. challenge without difficulty. Reporting some continued pain after transvaginal ultrasound. Additional pain medication ordered. Lab workup results CBC without leukocytosis or acute anemia. CMP without fluid electrolyte abnormality, UVALDO, or transaminitis. Lipase within normal limits. Urinalysis is unremarkable. Imaging results per radiology: TVUS: IMPRESSION: Status post hysterectomy and bilateral oophorectomies. No acute pelvic abnormality is identified. CT AP: IMPRESSION: 1. Punctate nonobstructive left renal calculi. 2. Hepatic steatosis. Chronic conditions contributing to patients presentation include endometriosis. In brief, Sally Vargas is a 44 y.o. female who presented to the emergency department for evaluation of acute on chronic abdominal/pelvic pain. Patient with history of endometriosis, as well as some type of gynecologic cancer for which she has had multiple surgeries performed. Known to Dr. Mackenzie,Dr. Palacios, Dr. Hearn. Most recent episode has been ongoing for the last few days, she called her office today to schedule an appointment, but was directed to the emergency department. On arrival, patient noted to be clinical appearing, afebrile nontoxic. The does have generalized tenderness to palpation over the abdomen. Given abdominal and pelvic pain, CT was ordered in addition to transvag inal ultrasound to rule out acute pelvic abnormalities. I see nothing that would suggest an acute abdomen at this time. Based on history, physical exam, risk factors, and tests my suspicion for bowel obstruction, incarcerated hernia, acute pancreatitis, intra-abdominal abscess, perforated viscus, diverticulitis, cholecystitis, appendicitis, PID, ovarian torsion, ectopic and tubo-ovarian abscess is very low. There is no evidence of peritonitis, sepsis or toxicity at this time and her CT, transvaginal ultrasound, and lab work are otherwise very reassuring. Believe her symptoms today are likely secondary to her underlying endometriosis. As such we will send with prescription for Zofran, short course of Acushnet, do feel she is appropriate for outpatient management. 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 She expressed understanding of the strictly discussed ER return precautions, was comfortable and agreeable plans for discharge. Patient discharged in stable edition with stable vital signs. FINAL IMPRESSION 1. Chronic pain in female pelvis 2. Left renal stone 3. History of endometriosis DISPOSITION Discharge 12/12/2024 04:54:09 PM Shared decision making preformed. PATIENT REFERRED TO: Marcelino Albert MD [address] [facility] [address] [facility] [address] In 2 days [facility] [address] [facility] [id number] As needed, If symptoms worsen DISCHARGE MEDICATIONS: Discharge Medication List as of 12/12/2024 4:55 PM START taking these medications Details HYDROcodone-acetaminophen (Acushnet) 5-325 MG tablet Take 1 tablet by mouth every 6 hours as needed for severe pain (7-10) for up to 5 days., Starting 12/12/2024, Until 12/17/2024 at 2359, Normal ondansetron (Zofran) 4 MG tablet Take 1 tablet (4 mg) by mouth every 6 hours for 3 days., Starting 12/12/2024, Until Evelyn 12/15/2024, Normal (Comment: Please note this report has been produced using speech recognition software and may contain errors related to that system including errors in grammar, punctuation, and spelling, as well as words and phrases that may be inappropriate. If there are any questions or concerns please feel freeto contact the dictating provider for clarification.) Fay Kevin PA-C (electronically signed) Emergency Medicine Provider Fay Kevin PA-C 12/12/241945 documented in this [facility]03-31-[facility]25 Physician Emergency department Note* Fay Kevin PA-C - 12/12/2024 2:33 PM EDT EMERGENCY DEPARTMENT ENCOUNTER Pt Name: Sally Vargas Birthdate 1980 Date of evaluation: 12/12/2024 ED Provider: Fay Kevin PA-C CHIEF COMPLAINT Chief Complaint Patient presents with Abdominal Pain Nausea Pt arrives from home for nausea and abdominal pain over the last few days. Pt states she called herPCP and was told to come to ER . Pt endorses fever, chills at home, pain 9/10 in triage HISTORY OF PRESENT ILLNESS (Location/Symptom, Timing/Onset, Context/Setting, Quality, Duration, Modifying Factors, Severity) Note limiting factors. I wore appropriate PPE for the entirety of this encounter. HPI Sally Vargas is a 44 y.o. female with who presents to the emergency department for evaluation ofabdominal/pelvic pain. According to the patient she has a history of some type of gynecologic cancer, and is status post total hysterectomy, and bilateral salpingo-oophorectomy. Has had multiple surgeries for diagnosis and treatment of endometriosis, with history of adhesions. States over the last couple of months, she has been dealing with ongoing abdominal/pelvic pain. Has been seen for this, most recently around 2 weeks ago at [place] and had a negative CT at that time. States this most recent flare of abdominal pain has been ongoing for the last couple of days with associated nausea. No actual episodes of emesis. No fevers, but does endorse chills. No dysuria, hematuria, urgency, or frequency, but does have history of renal stones. 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 Still passing gas and having bowel movements. Has not appreciated a blood in her stool. No concern for STD exposure, and is not currently having any vaginal discharge or bleeding. Has not yet taken anything for pain. States she does also have history of pancreatitis, but denies any drug or alcohol use. No recent changes in her medications. States last time she got a CT scan with IV contrast it made her skin burn. Nursing Notes were reviewed. Limitations to history: None Outside historians: None REVIEW OF SYSTEMS Review of Systems 14 systems reviewed, positives and pertinent negatives as per HPI. All other systems were reviewed and are negative. PAST MEDICAL HISTORY Past Medical History: Diagnosis Date Cancer (CMS/HCC) Chicken pox High cholesterol History of blood transfusion 2006 Kidney stones Right ureteral calculus 09/05/2019 SURGICAL HISTORY Past Surgical History: Procedure Laterality Date CHOLECYSTECTOMY CYSTOSCOPY 09/05/2019 cystoscopy, bilateral retrograde pyelograms, right ureteroscopy EXPLORATORY LAPAROTOMY Laparotomy RSO EXPLORATORY LAPAROTOMY 12/02/2016 exp lap, extensive lysis of adhesions, left ureterlysis and excision of left pelvic sidewall HYSTERECTOMY LAPAROSCOPY DIAGNOSTIC / BIOPSY / ASPIRATION / LYSIS LIVER SURGERY 2019 removed cyst URETEROSCOPY Right 09/05/2019 C&P ( normal bilat). Right ureteroscopy-negative ( passessed stones). [facility] CURRENT MEDICATIONS Discharge Medication List as of 12/12/2024 4:55 PM CONTINUE these medications which have NOT CHANGED Details estradiol (Estrace) 0.5 MG tablet TAKE 1 TABLET BY MOUTH EVERY DAY, Starting 06/06/2023, Normal PARoxetine (Paxil) 10 MG tablet TAKE 1 TABLET (10 MG) BY MOUTH DAILY., Starting 06/06/2023, Normal ALLERGIES Iodinated contrast media, Nsaids, Penicillins, and Toradol [ketorolac tromethamine] FAMILY HISTORY Family History Problem Relation Name Age of Onset Other (71684) Mother blood clots Hyperlipidemia Mother High Blood Pressure Mother SOCIAL HISTORY Social History Socioeconomic History Marital status: Tobacco Use Smoking status: Every Day Current packs/day: 0.50 Types: Cigarettes Smokeless tobacco: Never Substance and Sexual Activity Alcohol use: Yes Alcohol/week: 0.0 standard drinks of alcohol Drug use: Never Social Drivers of Health Financial Resource Strain: Patient Declined (12/14/2023) Re[facility] Overall Financial Resource Strain (CARDIA) Difficulty of Paying Living Expenses: Patient declined Food Insecurity: Patient Declined (12/14/2023) Received from [facility] Hunger Vital Sign Worried About Running Out of Food in the Last Year: Patient declined Ran Out of Food in the Last Year: Patient declined Transportation Needs: Patient Declined (12/14/2023) Received from [facility] PRAPARE - Transportation Lack of Transportation (Medical): Patient declined Lack of Transportation (Non-Medical): Patient declined Physical Activity: Patient Declined (12/14/2023) Received from [facility] Exercise Vital Sign Days of Exercise per Week: Patient declined Minutes of Exercise per Session: Patient declined Stress: No Stress Concern Present (11/15/2020) Received from [facility], [facility] [employer]ational Health - Occupational Stress Questionnaire Feeling of Stress : Only a little Social Connections: Unknown (12/14/2023) Received from [facility] Social Connection and Isolation Panel [NHANES] Active Member of Clubs or Organizations: Patient declined Marital Status: Patient declined Housing Stability: Patient Declined (12/14/2023) Received from [facility] Housing Stability Vital Sign Unable to Pay for Housing in the Last Year: Patient declined Unstable Housing in the Last Year: Patient declined SCREENINGS PHYSICAL EXAM ED Triage Vitals [12/12/24 1439] Temp Heart Rate Resp BP 36.7 C (98 F) 90 24 127/65 SpO2 Temp Source Heart Rate Source Patient Position 97 % Temporal Monitor -- BP Location FiO2 (%) -- -- Physical Exam Vitals and nursing note reviewed. Constitutional: General: She is not in acute distress. Appearance: She is well-developed. Comments: Afebrile nontoxic. Speaking comfortably in full sentences. HENT: Head: Normocephalic and atraumatic. Eyes: Conjunctiva/sclera: Conjunctivae normal. Cardiovascular: Rate and Rhythm: Normal rate and regular rhythm. Heart sounds: No murmur heard. Pulmonary: Effort: Pulmonary effort is normal. No respiratory distress. Breath sounds: Normal breath sounds. Abdominal: Palpations: Abdomen is soft. Comments: Generalized diffuse tenderness throughout all quadrants, though without guarding or rebound. No reproducible CVA tenderness. Bowel sounds present. Musculoskeletal: General: No swelling. Cervical back: Neck supple. Skin: General: Skin is warm and dry. Capillary Refill: Capillary refill takes less than 2 seconds. Neurological: Mental Status: She is alert. Psychiatric: Mood and Affect: Mood normal. DIAGNOSTIC RESULTS RADIOLOGY (Per Emergency Physician): Interpretation per the Radiologist below, if available at the time of this note: US pelvis transvaginal Final Result Status post hysterectomy and bilateral oophorectomies. No acute pelvic abnormality is identified. Report Dictated on Electronically Signed By: Barb Sanders MD Electronically Signed Date/Time: 12/12/2024 4:[address] abdomen pelvis wo IV contrast Final Result 1. Punctate nonobstructive left renal calculi. 2. Hepatic steatosis. Report Dictated on Electronically Signed By: Juaquin Raya MD Electronically Signed Date/Time: 12/12/2024 4:39 PM EDT LABS: Labs Reviewed CBC WITH AUTO DIFFERENTIAL - Abnormal Result Value Auto WBC 8.2 RBC 4.63 Hemoglobin 14.3 Hematocrit 42.3 MCV 91.4 MCH 30.9 MCHC 33.8 RDW 13.3 Platelets 302 MPV 10.1 nRBC 0.0 Neutrophils Relative 54.2 Lymphocytes Relative 34.8 Monocytes Relative 6.4 Eosinophils Relative 2.3 Basophils Relative 0.7 Immature Grans % 1.6 Neutrophils Absolute 4.5 Lymphocytes Absolute 2.9 Monocytes Absolute 0.5 Eosinophils Absolute 0.2 Basophils Absolute 0.1 Immature Grans Absolute 0.1 (*) COMPREHENSIVE METABOLIC PANEL - Abnormal SODIUM 142 POTASSIUM 4.1 CHLORIDE 107 CARBON DIOXIDE 24 ANION GAP 11 UREA NITROGEN 9 CREATININE 1.00 GLUCOSE 85 CALCIUM 9.6 AST (SGOT) 23 ALT 30 (*) ALKALINE PHOSPHATASE 136 ALBUMIN 4.4 BILIRUBIN, TOTAL 0.6 TOTAL PROTEIN 8.3 eGFR 70.9 LIPASE - Normal LIPASE 28 COMPLETE URINALYSIS - Normal Color, Urine Light Yellow Clarity, Urine Clear pH, Urine 5.5 Leukocytes, Urine Negative Nitrite, Urine Negative Protein, Urine Negative Glucose, Urine Normal Bilirubin, Urine Negative Ketones, Urine Negative Urobilinogen, Urine Normal Blood, Urine Negative SPECIFIC GRAVITY OF URINE (NUMERIC) 1.006 COMPLETE URINALYSIS WITH REFLEX TO CULTURE Narrative: The following orders were created for panel order Complete Urinalysis with reflex to Culture. Procedure Abnormality Status --------- ------ Complete Urinalysis[[id number]] Normal Final result Please view results for these tests on the individual orders. All other labs were within normal range or not returned as of this dictation. EMERGENCY DEPARTMENT COURSE and DIFFERENTIAL DIAGNOSIS/MDM: Vitals: Vitals: 12/12/24 1436 12/12/24 1439 12/12/24 1729 BP: 127/65 104/60 Pulse: 90 80 Resp: 24 18 Temp: 36.7 C (98 F) TempSrc: Temporal SpO2: 97% 99% Weight: 92.1 kg (203 lb) Height: 1.549 m (5' 1) Medications sodium chloride 0.9 % bolus 1,000 mL (0 mL IntraVENous Stopped 12/12/24 1638) ondansetron (Zofran) injection 4 mg (4 mg IntraVENous Given 12/12/24 1539) morphine injection 4 mg (4 mg IntraVENous Given 12/12/24 153) oxyCODONE-acetaminophen (Percocet) 5-325 MG per tablet 1 tablet (1 tablet Oral Given 12/12/24 1729) I independently evaluated the patient with supervising attending physician available as needed for collaboration. Nursing notes and medical records reviewed. Differential considerations included obstruction, colitis, pancreatitis, diverticulitis, urolithiasis, pyelonephritis, acute cystitis, endometriosis, pelvic mass, vaginitis Initial medical management includes Zofran, morphine, IV fluids Initial workup includes CBC, CMP, lipase, UA, CT abdomen and pelvis, transvaginal ultrasound. Upon reassessment patient remains nontoxic. No acute distress. Vital signs stable. Passed p.o. challenge without difficulty. Reporting some continued pain after transvaginal ultrasound. Additional pain medication ordered. Lab workup results CBC without leukocytosis or acute anemia. CMP without fluid electrolyte abnormality, UVALDO, or transaminitis. Lipase within normal limits. Urinalysis is unremarkable. Imaging results per radiology: TVUS: IMPRESSION: Status post hysterectomy and bilateral oophorectomies. No acute pelvic abnormality is identified. CT AP: IMPRESSION: 1. Punctate nonobstructive left renal calculi. 2. Hepatic steatosis. Chronic conditions contributing to patients presentation include endometriosis. In brief, Sally Vargas is a 44 y.o. female who presented to the emergency department for evaluation of acute on chronic abdominal/pelvic pain. Patient with history of endometriosis, as well as some type of gynecologic cancer for which she has had multiple surgeries performed. Known to Dr. Mackenzie,Dr. Palacios, Dr. Hearn. Most recent episode has been ongoing for the last few days, she called her office today to schedule an appointment, but was directed to the emergency department. On arrival, patient noted to be clinical appearing, afebrile nontoxic. The does have generalized tenderness to palpation over the abdomen. Given abdominal and pelvic pain, CT was ordered in addition to transvag inal ultrasound to rule out acute pelvic abnormalities. I see nothing that would suggest an acute abdomen at this time. Based on history, physical exam, risk factors, and tests my suspicion for bowel obstruction, incarcerated hernia, acute pancreatitis, intra-abdominal abscess, perforated viscus, diverticulitis, cholecystitis, appendicitis, PID, ovarian torsion, ectopic and tubo-ovarian abscess is very low. There is no evidence of peritonitis, sepsis or toxicity at this time and her CT, transvaginal ultrasound, and lab work are otherwise very reassuring. Believe her symptoms today are likely secondary to her underlying endometriosis. As such we will send with prescription for Zofran, short course of Acushnet, do feel she is appropriate for outpatient management. 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 She expressed understanding of the strictly discussed ER return precautions, was comfortable and agreeable plans for discharge. Patient discharged in stable edition with stable vital signs. FINAL IMPRESSION 1. Chronic pain in female pelvis 2. Left renal stone 3. History of endometriosis DISPOSITION Discharge 12/12/2024 04:54:09 PM Shared decision making preformed. PATIENT REFERRED TO: Marcelino Albert MD 1 [facility] 2ND FLOOR [facility] [phone] In 2 days [facility] [address] [id number] As needed, If symptoms worsen DISCHARGE MEDICATIONS: Discharge Medication List as of 12/12/2024 4:55 PM START taking these medications Details HYDROcodone-acetaminophen (Acushnet) 5-325 MG tablet Take 1 tablet by mouth every 6 hours as needed for severe pain (7-10) for up to 5 days., Starting 12/12/2024, Until 12/17/2024 at 2359, Normal ondansetron (Zofran) 4 MG tablet Take 1 tablet (4 mg) by mouth every 6 hours for 3 days., Starting 12/12/2024, Until Evelyn 12/15/2024, Normal (Comment: Please note this report has been produced using speech recognition software and may contain errors related to that system including errors in grammar, punctuation, and spelling, as well as words and phrases that may be inappropriate. If there are any questions or concerns please feel freeto contact the dictating provider for clarification.) Fay Kevin PA-C (electronically signed) Emergency Medicine Provider Fay Kevin PA-C 12/12/241945 [facility] [id number] Telephone encounter Note* Telephone Encounter - Shakila Rees RN - 12/12/2024 1:28 PM EDT S: Patient spoke with [facility] nurse regarding abdominal and pelvic pain B: Onset of symptoms/concern ongoing A: Patient states she is having abdominal and pelvic cramping and she feels like she is on her period. It is a constant pain and not going away. Patient states she has been to the ER for this a few times up in [place] and they did a CT scan and told her everything was fine. Patient states she was told to follow up with SIGNAL SYSTEM TESTING MAINTAINER due to her past surgical history. Patient states she has had a hysterec altagracia and ovaries removed then had a lot of cysts and had to have another surgery in [address] Palacios. Patient states she has had pain for years but in the last month it has been getting worse. Rates pain as severe right now and states it is a constant cramping and feels like she is on her period. Only relief gets is heating pad and tylenol does not help at all. Has been getting the chills and has been feeling weak. Denies fevers, vaginal bleeding or vomiting. R: Patient advised to go to the ER as she has not seen Dr. Story since 03/08/21 and verbalized understanding. Patient will go to [facility]. Patient given care advice per protocol. Patient understands care advice. No further needs at this time. Patient instructed to call back with new or worsening symptoms. Reason for Disposition SEVERE pelvic pain and present > 1 hour Protocols used: Pelvic Pain - ADULT-[place] [id number] Miscellaneous Notes* Telephone Encounter - Shakila Rees RN - 12/12/2024 1:28 PM EDT S: Patient spoke with [facility] nurse regarding abdominal and pelvic pain B: Onset of symptoms/concern ongoing A: Patient states she is having abdominal and pelvic cramping and she feels like she is on her period. It is a constant pain and not going away. Patient states she has been to the ER for this a few times up in [place] and they did a CT scan and told her everything was fine. Patient states she was told to follow up with SIGNAL SYSTEM TESTING MAINTAINER due to her past surgical history. Patient states she has had a hysterec altagracia and ovaries removed then had a lot of cysts and had to have another surgery in [address] Palacios. Patient states she has had pain for years but in the last month it has been getting worse. Rates pain as severe right now and states it is a constant cramping and feels like she is on her period. Only relief gets is heating pad and tylenol does not help at all. Has been getting the chills and has been feeling weak. Denies fevers, vaginal bleeding or vomiting. R: Patient advised to go to the ER as she has not seen Dr. Story since 03/08/21 and verbalized understanding. Patient will go to [facility]. Patient given care advice per protocol. Patient understands care advice. No further needs at this time. Patient instructed to call back with new or worsening symptoms. Reason for Disposition SEVERE pelvic pain and present > 1 hour Protocols used: Pelvic Pain - ADULT-[place] documented in this [facility]03-28-2025 Telephone encounter Note* Telephone Encounter - Abi Galicia MSW - 12/09/2024 10:15 AM EDT Sw spoke with patient in regards to medication cost issue. Patient also notes that she needs help with clearance to see medical providers. Sw noted patient has My Chart message from [employer]. Patient reports that she cannot remember her password to My Chart. Sw noted [employer] phone number for patient to reach out to her regarding HCAP. Patient also notes that e has been turned down 2x for disability. Patient notes that she has appealed and been denied. Patient reports currently working for [employer]. No longer has her Medicaid due to this. Patient notes that she has reapplied for Medicaid, needs to submit documents to finalize her Medicaid application with [employer]. This Sw mentioned checking with [employer] for help with medication cost needs. Patient states I do not go to [employer]. This Sw will review patient medication listing and call patient back next week with any patient assistance program options [facility]03-26-2025 NoteHNO ID: [id number] Author: SILVERIO HALEY MD Service: ? Author Type: Physician Type: Progress Notes Filed: 12/16/2024 01:32 Note Text: This note was created using [employer]. Subjective Sally Vargas is a 44 year old female. Patient presents with: Discussion: Would like to talk about disability and a handicap alex Zavala is a 44-year-old female with a history of chronic pain, migraines, and multiple psychiatric diagnoses, presenting for a check-up and assistance with disability application. Sally has been attempting to obtain disability benefits for 8 years due to chronic pain and frequent hospitalizations for migraines, which have made it difficult for her to maintain employment. She has had two hearings and multiple appeals, all of which have been denied. She reports that her health has been deteriorating, and she is experiencing significant pain in her knee, for which she was supposed to see an orthopedist but has been unable to do so due to lack of insurance. She is currently trying to get back on her insurance but has been having difficulty with the process. Sally also reports severe abdominal pain, nausea, and vomiting, which have prevented her from eating for the past 2 weeks. She has lost a significant amount of weight, dropping from 215 lbs to 209 lbs in 2-3 weeks. She has been to the ER twice in the past week for these issues and was prescribed Phenergan for nausea. She reports that eating or drinking anything, including water, exacerbates her pain, which she describes as sharp and burning. She has tried various diets, including the BRAT diet and protein shakes, but nothing has alleviated her symptoms. She also reports infrequent bowel movements, sometimes going up to a month without one, and when she does have a bowel movement, it is usually diarrhea with dark green stool and occasional blood. Sally has a history of migraines, which have improved with Topamax. She also has a history of anxiety, depression, bipolar disorder, PTSD, and dyslexia. She was previously seeing a psychiatrist but is currently waiting for a new one. She reports that her previous psychiatrist prescribed multiple medications that were not effective. She was hospitalized for 5 days in 2020 for mental health issues. 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 She is seeking assistance with reapplying for disability benefits and obtaining a parking placard due to her physical limitations. She also expresses frustration with her current healthcare providers and is seeking a new paint supervisor. SUBJECTIVE: PAST MEDICAL HISTORY Diagnosis Date Allergic rhinitis, cause unspecified 05/17/2008spring and summer Benign liver cyst 05/24/2010 CT scan at [facility] 11/2009 and 04/2010 showe 4 mm increase in size. No pain. No elevated LFTs on 03/11/2010. Calculus of kidney 05/17/[address] 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 Functional vomiting 06/25/2021 Hemorrhoids History of blood transfusion Hydronephrosis of left kidney 02/05/2017 Hydroureter on left 02/05/2017 Impaired fasting glucose 05/17/2008 Sugar 104 fasting, 04/21 Intractable nausea and vomiting 05/25/2020 Marijuana use 07/10/2020 ER visit 07/06/2020, [place] MIGRAINE 05/17/2008 Has used imitrex with good response; Keeps Vicodin on hand when needed; Open wound of left breast 01/19/2023 Ovarian cyst 07/15/2012 Pancreatitis Smoker 05/17/2008 Started age 26, 1/2 a PPD Current Outpatient Medications Medication Sig topiramate (TOPAMAX) 25 mg tablet Take 1 tablet by mouth two times a day. colestipol (COLESTID) 1 gram tablet Take 1 tablet by mouth two times a day. benzocaine-menthol (CEPACOL) 15-3.6 mg lozg Use 1 Lozenge as instructed every 2 hours as needed. promethazine (PHENERGAN) 25 mg tablet Take 1 tablet by mouth every 8 hours as needed for nausea/vomiting. LORazepam (ATIVAN) 0.5 mg Take 1 tablet by mouth once daily as needed. [facility]. escitalopram oxalate (LEXAPRO) 20 mg tablet Take 1 tablet by mouth once daily. [facility]. ARIPiprazole (ABILIFY) 10 mg tablet Take 1 tablet by mouth once daily. From [facility]. pantoprazole DR (PROTONIX) 40 mg tablet Take 1 tablet by mouth daily before breakfast. Take on empty stomach, 1/2 hr before meal. sodium chloride (SALINE NASAL) 0.65 % nasal spray Use 1 [place] in the nose as needed. gabapentin (NEURONTIN) 400 mg capsule Take 1 capsule by mouth every 12 hours for 90 days. etodolac (LODINE) 400 mg tablet Take 1 tablet by mouth two times a day as needed. albuterol HFA (VENTOL (more content not included)...[facility] 12-07-2024 History of Present illness Narrative* Silverio Haley MD - 12/07/2024 11:26 AM EDT This note was created using [employer]. Subjective Sally Vargas is a 44 year old female. Patient presents with: Discussion: Would like to talk about disability and a handicap alex Zavala is a 44-year-old female with a history of chronic pain, migraines, and multiple psychiatricdiagnoses, presenting for a check-up and assistance with disability application. Sally has been attempting to obtain disability benefits for 8 years due to chronic pain and frequent hospitalizations for migraines, which have made it difficult for her to maintain employment. Shehas had two hearings and multiple appeals, all of which have been denied. She reports that her health has been deteriorating, and she is experiencing significant pain in her knee, for which she was supposed to see an orthopedist but has been unable to do so due to lack of insurance. She is currently trying to get back on her insurance but has been having difficulty with the process. Sally also reports severe abdominal pain, nausea, and vomiting, which have prevented her from eating for the past 2 weeks. She has lost a significant amount of weight, dropping from 215 lbs to 209 lbs in 2-3 weeks. She has been to the ER twice in the past week for these issues and was prescribed Phenergan for nausea. She reports that eating or drinking anything, including water, exacerbates herpain, which she describes as sharp and burning. She has tried various diets, including the BRAT diet and protein shakes, but nothing has alleviated her symptoms. She also reports infrequent bowel movements, sometimes going up to a month without one, and when she does have a bowel movement, it is usually diarrhea with dark green stool and occasional blood. Sally has a history of migraines, which have improved with Topamax. She also has a history of anxiety, depression, bipolar disorder, PTSD, and dyslexia. She was previously seeing a psychiatrist butis currently waiting for a new one. She reports that her previous psychiatrist prescribed multiple medications that were not effective. She was hospitalized for 5 days in 2020 for mental health issues . 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 She is seeking assistance with reapplying for disability benefits andobtaining a parking placard due to her physical limitations. She also expresses frustration with her current healthcare providers and is seeking a new paint supervisor. SUBJECTIVE: PAST MEDICAL HISTORY Diagnosis Date Allergic rhinitis, cause unspecified 05/17/2008spring and summer Benign liver cyst 05/24/2010 CT scan at [facility] 11/2009 and 04/2010 showe 4 mm increase in size. No pain. No elevated LFTs on 03/11/2010. Calculus of kidney 05/17/[address] 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 Functional vomiting 06/25/2021 Hemorrhoids History of blood transfusion Hydronephrosis of left kidney 02/05/2017 Hydroureter on left 02/05/2017 Impaired fasting glucose 05/17/2008 Sugar 104 fasting, 04/21 Intractable nausea and vomiting 05/25/2020 Marijuana use 07/10/2020 ER visit 07/06/2020, [place] MIGRAINE 05/17/2008 Has used imitrex with good response; Keeps Vicodin on hand when needed; Open wound of left breast 01/19/2023 Ovarian cyst 07/15/2012 Pancreatitis Smoker 05/17/2008 Started age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 Vital Signs: 11/17/24 17:25 11/17/24 19:24 Temperature 97.8 F Temperature Source Temporal Pulse Rate 88 78 Respiratory Rate 20 H 14 Blood Pressure 188/100 H 140/80 H Blood Pressure Mean 129 100 Pulse Ox 99 98 Oxygen Delivery Method Room Air MDM MDM MDM Narrative Medical decision making narrative: Patient is a 44-year-old female who presented to the emergency department with achief complaint of abdominal pain and flank pain. On the differential diagnose includes but limited to pancreatitis, appendicitis, urolithiasis, UTI, pyelonephritis. Once workup is obtained reviewed she will be reevaluated. Patient CBC was reviewed and was largely unremarkable she had a mild leukocytosis of 11,000, hemoglobin 13.2, platelet count was noted be 292. Patient sodium normal 140, potassium of 4, creatinine normal at 1. Patient AST and ALT were 18 and 22 respectively, total bilirubin normal at 0.31. Patient's urinalysis did not reveal any evidence of infection. While awaiting CT scan the patient went to the restroom had diarrhea and she came back to the room and told the nurse that she feels much improved and would like to go home at this point time. I went back in and reevaluated the patient and she states that she does not needthe CT scan she feels much better and wants to go home. She will be given prescription for Zofran for as needed nausea.She is advised to follow-up with Dr. Rose in outpatient setting at her scheduled appointment on the . She is agreeable this plan all question concerns answered she was discharged home instable condition. Lab Data Labs: Laboratory Results - last 24 hr 11/17/24 11/17/24 17:32 17:38 WBC 11.8 H RBC 4.40 Hgb 13.2 Hct 39.8 MCV 90.5 MCH 30.0 MCHC 33.2 RDW Std Deviation 43.5 RDW Coeff of Shun 13.2 Plt Count 292 MPV 9.8 Immature Gran % (Auto) 1.000 H Neut % (Auto) 60.6 Lymph % (Auto) 32.0 [place] % (Auto) 4.8 Eos % (Auto) 1.0 Baso % (Auto) 0.6 Absolute Neuts (auto) 7.1 Absolute Lymphs (auto) 3.78 Nucleated RBC % 0 Sodium 140 Potassium 4.0 Chloride 103 Carbon Dioxide 23.8 Anion Gap 12 BUN 12 Creatinine 1.00 Estim Creat Clear Calc 74.65 Est GFR (MDRD) Non-Af 71 BUN/Creatinine Ratio 11.7 Glucose 95 Calcium 9.4 Total Bilirubin 0.31 AST 18 ALT 22 Alkaline Phosphatase 143 H Total Protein 8.0 Albumin 4.5 Globulin 3.5 Albumin/Globulin Ratio 1.3 Urine Color Yellow Urine Clarity Sl. Cloudy Urine pH 7.0 Ur Specific [place] 1.010 Urine Protein Negative Urine Glucose (UA) Normal Urine Ketones Negative Urine Occult Blood 10 H Urine Nitrite Negative Urine Bilirubin Negative Urine Urobilinogen Normal Ur Leukocyte Esterase Negative Urine RBC 0-5 SEEN Urine WBC 0 SEEN Ur Squamous Epith Cells 0-5 SEEN Urine Bacteria 0 SEEN Urine Mucus 0 SEEN Discharge Plan Triage Chief Complaint: Flank Pain ED Provider: Chance Botello Dx/Rx/DC Orders Clinical Impression: Abdominal pain Prescriptions: New ondansetron 4 mg tablet,disintegrating 4 mg PO Q6H PRN (Reason: nausea and vomiting) Qty: 20 0RF No Action trazodone 50 mg tablet 50 mg PO QHS gabapentin 400 MG capsule 400 mg PO TID PRN (Reason: NEUROPATHY ) Patient Comments: PT STATES THEIR DOCTOR RECENTLY UPPED THE DOSE THAT CAN BE TAKEN aripiprazole 10 mg tablet 10 mg PO DAILY diphenhydramine HCl [Allergy (diphenhydramine)] 25 mg capsule 25 mg PO QHS pantoprazole 40 mg tablet,delayed release (DR/EC) 40 mg PO DAILY promethazine 25 mg tablet 25 mg PO Q8H PRN PRN (Reason: nausea/vomiting) escitalopram oxalate 20 mg tablet 20 mg PO DAILY cyclobenzaprine 10 mg tablet 10 mg PO TID PRN (Reason: Muscle Spasm) Qty: 15 0RF hyoscyamine sulfate [Levsin] 0.125 mg tablet 0.125 mg PO Q6H 4 Days Qty: 16 0RF ondansetron 4 mg tablet,disintegrating 4 mg PO Q6H PRN (Reason: nausea and vomiting) Qty: 20 0RF hyoscyamine sulfate 0.125 mg tablet,disintegrating 0.125 mg PO Q6H PRN (Reason: abdominal discomfort) Qty: 10 0RF ciprofloxacin HCl 500 mg tablet 500 mg PO BID 5 Days Qty: 10 0RF lorazepam 0.5 mg tablet 0.5 mg PO DAILY PRN (Reason: ANXIETY ) Qty: 7 0RF mesalamine 1.2 gram tablet,delayed release (DR/EC) 2.4 g PO DAILY 30 Days Qty: 60 1RF Primary Care Provider: Silverio Haley Referrals: Silverio Haley MD [Primary Care Provider] - Activity Restrictions/Additional Instructions: Follow-up your doctor now per setting and return with worsening symptoms and concerns. Use Zofran as prescribed. Start bland diet advance as tolerated. Print Language: Nicaraguan Disposition Disposition: Home, Self Care What to do if you have Problems For any increased pain, shortness of breath, bleeding, nausea or vomiting, chestpain, or any unexpected problems, contact your Primary Care Provider. Call [facility] ([phone]) or report tothe closest Emergency Room. Call 911 if necessary. 11/17/242022 Cosigner Signature (if applicable): CC: Dr. Silverio Haley MD ~ Signed [facility]03-06-2025 NoteHNO ID: [id number] Author: ROBBIN HERNANDEZ MD Service: ? Author Type: Physician Type: Progress Notes Filed: 11/17/2024 17:02 Note Text: This note was created using [employer]. Subjective Patient presents with: Left leg pain Sally Vargas is a 44 year old female. She developed left leg shaking and pain 1 week ago. She had no fall or injury. She was on gabapentin and lorazepam which was not helping. Pain was burning, throbbing, and stabbing around the left lower leg. Symptoms have been constant the past week. She had a history of low back pain which was not a concern at this time. I saw her for migraine 3 weeks ago, and started topiramate. She was taking topiramate only as needed, and her migraines were controlled. Review of Systems Constitutional: Negative for chills and fever. HENT: Negative. Eyes: Negative for visual disturbance. Respiratory: Negative for cough and shortness of breath. Cardiovascular: Negative for chest pain, palpitations and leg swelling. Gastrointestinal: Positive for constipation. Negative for abdominal pain, diarrhea, nausea and vomiting. Genitourinary: Negative for difficulty urinating, dysuria and flank pain. Musculoskeletal: Negative for back pain. Skin: Negative for color change and rash. Neurological: Positive for tremors and numbness. Negative for dizziness, weakness and headaches. ACTIVE PROBLEM LIST Calculus of Kidney Allergic rhinitis, cause unspecified Migraine Without Aura Cigarette Smoker Generalized Anxiety Disorder Reactive Depression Adjustment Insomnia Bilateral Low Back Pain Without Sciatica Lung Nodules Pain of Multiple Sites Obesity, Class II, Bmi 35-39.9 Acute Asthmatic Bronchitis Social History Tobacco Use Smoking status: Some Days Average packs/day: 0.5 packs/day for 10.4 years (5.2 ttl pk-yrs) Types: Cigarettes Start date: 01/12/2014 Last attempt to quit: 01/12/2017 Years since quittin.8 Smokeless tobacco: Never Tobacco comments: 1/2 pack per day Vaping Use Vaping status: Never Used Substance Use Topics Alcohol use: Yes Comment: Occasional Drug use: Never Current Outpatient Medications Medication Sig benzocaine-menthol (CEPACOL) 15-3.6 mg lozg Use 1 Lozenge as instructed every 2 hours as needed. promethazine (PHENERGAN) 25 mg tablet Take 1 tablet by mouth every 8 hours as needed for nausea/vomiting. topiramate (TOPAMAX) 25 mg tablet Take 1 tablet by mouth two times a day. (Patient taking differently: Take 25 mg by mouth as needed.) traZODone (DESYREL) 50 mg tablet Take 1 tablet by mouth daily at bedtime. [facility] LORazepam (ATIVAN) 0.5 mg Take 1 tablet by mouth once daily as needed. [facility]. escitalopram oxalate (LEXAPRO) 20 mg tablet Take 1 tablet by mouth once daily. [facility]. ARIPiprazole (ABILIFY) 10 mg tablet Take 1 tablet by mouth once daily. [facility]. pantoprazole DR (PROTONIX) 40 mg tablet Take 1 tablet by mouth daily before breakfast. Take on empty stomach, 1/2 hr before meal. sodium chloride (SALINE NASAL) 0.65 % nasal spray Use 1 [place] in the nose as needed. gabapentin (NEURONTIN) 400 mg capsule Take 1 capsule by mouth every 12 hours for 90 days. etodolac (LODINE) 400 mg tablet Take 1 tablet by mouth two times a day as needed. albuterol HFA (VENTOLIN HFA) 90 mcg/actuation inhaler Inhale 2 Puffs as instructed every 4 hours as needed for wheezing/shortness of breath. Cholecalciferol, Vitamin D3, 50 mcg (2,000 unit) cap Take 1 capsule by mouth once daily. SUMAtriptan (IMITREX STATDOSE PEN) 6 mg/0.5 mL pen Inject 0.5 mL subcutaneously as needed for migraine headache (see administration instructions). May repeat dose after 1 hour if needed. Maximum daily dose is 12 mg per day. diphenhydrAMINE (BENADRYL) 25 mg capsule Take 50 mg by mouth at bedtime as needed. No current facility-administered medications for this visit. Objective BP 136/76 (BP Site: Left Arm, BP Position: Sitting, BP Cuff Size: Large Adult) Pulse 100 Wt 94.4 kg (208 lb 1.8 oz) LMP 08/10/2006 BMI 38.79 kg/m? Physical Exam Constitutional: Appearance: She is not ill-appearing or diaphoretic. HENT: Head: Atraumatic. Eyes: Extraocular Movements: Extraocular movements intact. Conjunctiva/sclera: Conjunctivae normal. Pupils: Pupils are equal, round, and reactive to light. Cardiovascular: Rate and Rhythm: Normal rate and regular rhythm. Pulmonary: Breath sounds: Normal breath sounds. Abdominal: Palpations: Abdomen is soft. Tenderness: There is no abdominal tenderness. Musculoskeletal: Lumbar back: No tenderness. Negative right straight leg raise test and negative left straight leg raise test. Neurological: Mental Status: She is alert. Cranial Nerves: Cranial nerves 2-12 are intact. No facial asymmetry. Sensory: Sensory deficit present. Motor: Weakness and tremor present. No abnormal muscle (more content not included)...[facility]03-06-2025 History of Present illness Narrative* Robbin Hernandez MD - 11/17/2024 2:42 PM EST This note was created using [employer] Subjective Patient presents with: Left leg pain Sally Vargas is a 44 year old female. She developed left leg shaking and pain 1 week ago. She had no fall or injury. She was on gabapentin and lorazepam which was not helping. Pain was burning, throbbing, and stabbing around the left lower leg. Symptoms have been constant the past week. She had a history of low back pain which was not a concern at this time. I saw her for migraine 3 weeks ago, and started topiramate. She was taking topiramate only as needed, and her migraines were controlled. Review of Systems Constitutional: Negative for chills and fever. HENT: Negative. Eyes: Negative for visual disturbance. Respiratory: Negative for cough and shortness of breath. Cardiovascular: Negative for chest pain, palpitations and leg swelling. Gastrointestinal: Positive for constipation. Negative for abdominal pain, diarrhea, nausea and vomiting. Genitourinary: Negative for difficulty urinating, dysuria and flank pain. Musculoskeletal: Negative for back pain. Skin: Negative for color change and rash. Neurological: Positive for tremors and numbness. Negative for dizziness, weakness and headaches. ACTIVE PROBLEM LIST Calculus of Kidney Allergic rhinitis, cause unspecified Migraine Without Aura Cigarette Smoker Generalized Anxiety Disorder Reactive Depression Adjustment Insomnia Bilateral Low Back Pain Without Sciatica Lung Nodules Pain of Multiple Sites Obesity, Class II, Bmi 35-39.9 Acute Asthmatic Bronchitis Social History Tobacco Use Smoking status: Some Days Average packs/day: 0.5 packs/day for 10.4 years (5.2 ttl pk-yrs) Types: Cigarettes Start date: 01/12/2014 Last attempt to quit: 01/12/2017 Years since quittin.8 Smokeless tobacco: Never Tobacco comments: 1/2 pack per day Vaping Use Vaping status: Never Used Substance Use Topics Alcohol use: Yes Comment: Occasional Drug use: Never Current Outpatient Medications Medication Sig benzocaine-menthol (CEPACOL) 15-3.6 mg lozg Use 1 Loz[place] as instructed every 2 hours as needed. promethazine (PHENERGAN) 25 mg tablet Take 1 tablet by mouth every 8 hours as needed for nausea/vomiting. topiramate (TOPAMAX) 25 mg tablet Take 1 tablet by mouth two times a day. (Patient taking differently: Take 25 mg by mouth as needed.) traZODone (DESYREL) 50 mg tablet Take 1 tablet by mouth daily at bedtime. [facility]. LORazepam (ATIVAN) 0.5 mg Take 1 tablet by mouth once daily as needed. [facility]. escitalopram oxalate (LEXAPRO) 20 mg tablet Take 1 tablet by mouth once daily. [facility] ARIPiprazole (ABILIFY) 10 mg tablet Take 1 tablet by mouth once daily. [facility]. pantoprazole DR (PROTONIX) 40 mg tablet Take 1 tablet by mouth daily before breakfast. Take on empty stomach, 1/2 hr before meal. sodium chloride (SALINE NASAL) 0.65 % nasal spray Use 1 [place] in the nose as needed. gabapentin (NEURONTIN) 400 mg capsule Take 1 capsule by mouth every 12 hours for 90 days. etodolac (LODINE) 400 mg tablet Take 1 tablet by mouth two times a day as needed. albuterol HFA (VENTOLIN HFA) 90 mcg/actuation inhaler Inhale 2 Puffs as instructed every 4 hours asneeded for wheezing/shortness of breath. Cholecalciferol, Vitamin D3, 50 mcg (2,000 unit) cap Take 1 capsule by mouth once daily. SUMAtriptan (IMITREX STATDOSE PEN) 6 mg/0.5 mL pen Inject 0.5 mL subcutaneously as needed for migraine headache (see administration instructions). May repeat dose after 1 hour if needed. Maximum daily dose is 12 mg per day. diphenhydrAMINE (BENADRYL) 25 mg capsule Take 50 mg by mouth at bedtime as needed. No current facility-administered medications for this visit. Objective BP 136/76 (BP Site: Left Arm, BP Position: Sitting, BP Cuff Size: Large Adult) Pulse 100 Wt 94.4 kg (208 lb 1.8 oz) LMP 08/10/2006 BMI 38.79 kg/m Physical Exam Constitutional: Appearance: She is not ill-appearing or diaphoretic. HENT: Head: Atraumatic. Eyes: Extraocular Movements: Extraocular movements intact. Conjunctiva/sclera: Conjunctivae normal. Pupils: Pupils are equal, round, and reactive to light. Cardiovascular: Rate and Rhythm: Normal rate and regular rhythm. Pulmonary: Breath sounds: Normal breath sounds. Abdominal: Palpations: Abdomen is soft. Tenderness: There is no abdominal tenderness. Musculoskeletal: Lumbar back: No tenderness. Negative right straight leg raise test and negative left straight leg raise test. Neurological: Mental Status: She is alert. Cranial Nerves: Cranial nerves 2-12 are intact. No facial asymmetry. Sensory: Sensory deficit present. Motor: Weakness and tremor present. No abnormal muscle tone or pronator drift. Coordination: Coordination is intact. Gait: Gait is intact. Deep Tendon Reflexes: Babinski sign absent on the right side. Babinski sign absent on the left side. Reflex Scores: Patellar reflexes are 1+ on the right side and 2+ on the left side. Achilles reflexes are 1+ on the right side and 2+ on the left side. Comments: 1) Subtle weakness of left hip flexion, left foot dorsiflexion. 2) Decreased sensation to PP and FT in left foot, left lower leg, lower anterior thigh, left posterior thigh, left gluteal area. 3) Inspection for gluteal squeeze intact. 3) Resting rapid tremor of left foot and lower leg noted. Part of exam involving gluteal area was done with female MA present per patient request. Assessment and Plan 1. Tremor - ICD9: 781.0, ICD10: R25.1 (primary diagnosis) Etiology not clear. Workup discussed. Labs today. Keep follow up with PCP team 11/25/24. If labs okay, consider stopping topiramate. - COMPLETE BLOOD COUNT - COMPREHENSIVE METABOLIC PANEL - THYROID STIMULATING HORMONE - VITAMIN B12 - FERRITIN - EMG(NEURO/NI) 2. Bilateral low back pain without sciatica, unspecified chronicity - ICD9: 724.2, ICD10: M54.50 Stable. 3. Migraine without aura and without status migrainosus, not intractable - ICD9: 346.10, ICD10: G43.009 Improved. Robbin Hernandez MD [facility] summary Author Chance Botello [facility] Note Date/Time November 17, 2024 8:23 pm [facility] Medical Records Department [address] [place] [address] Emergency Department Summary 11/17/24 MR#: [id number] Acct: [id number] Name: SALLY VARGAS Rep #:[id number] : 1980 44 From: Chance Botello DO PCP: Dr. Silverio Haley MD Status:RE G ER Location: ED HPI History of Present Illness Chief Complaint: Flank Pain Narrative Narrative: Patient is a 44-year-old female with a past medical history of kidney stones, anxiety, depression, GERD, bipolar disorder, pancreatitis who presents to the emergency department with a chief complaint of left flank pain radiating to her abdomen. She states that this has been going off and on for approximately 2 weeks but states the last 2 days it has significantly worsened prompting her to come here for the valuation management. 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 Patient states that she does have some burning with urination as well and notes that she has a history of pancreatitis and kidney stone therefore she was concerned for these prompting her to come here for the valuation management. Patient denies any sick contacts [facility] Medical History Cancer Depression Rheumatoid arthritis Arthritis Back pain Difficulty chewing Gastric reflux Chronic cough History of Holter monitoring History of stress test Cardiology follow-up encounter Anxiety Kidney stones Smoker Abdominal pain Intractable nausea and vomiting History of pancreatitis Pancreatitis Bipolar disorder Lung nodule Migraine Chronic pain Ovarian cyst Obesity Incomplete right bundle branch block Hyperlipidemia History of uterine cancer (2006) Right tubo-ovarian mass Ureteral stone with hydronephrosis History of renal calculi Home Medications ?Medication ?Instructions ?Recorded ?Last Taken ?Type gabapentin 400 mg capsule 400 mg PO TID PRN NEUROPATHY 10/03/20 12/02/23 History aripiprazole 10 mg tablet 10 mg PO DAILY DEPRESSION 12/02/23 History lorazepam 0.5 mg tablet 0.5 mg PO DAILY PRN ANXIETY #7 01/26/24 Unknown Rx tabs mesalamine 1.2 gram tablet,delayed 2.4 g (2 x 1.2 gram ) PO DAILY 30 02/09/24 Unknown Rx release days #60 tabs trazodone 50 mg tablet 50 mg PO QHS 02/23/24 Unknow n History hyoscyamine sulfate 0.125 mg 0.125 mg PO Q6H PRN abdom inal 02/24/24 Unknown Rx disintegrating tablet discomfort #10 tabs diphenhydramine HCl 25 mg capsule 25 mg PO QHS 4 Unknown History (Allergy (diphenhydramine)) escitalopram oxalate 20 mg tablet 20 mg PO DAILY 05/25 Unknown History pantoprazole 40 mg tablet,delayed 40 mg PO DAILY 05/25 Unknown History release promethazine 25 mg tablet 25 mg PO Q8H PRN PRN 4 Unknown History nausea/vomiting ciprofloxacin HCl 500 mg tablet 500 mg PO BID 5 days # 10 TABLETS 06/13/24 Unknown Rx cyclobenzaprine 10 mg tablet 10 mg PO TID PRN Muscle S pasm #15 08/21/24 Unknown Rx TABLETS hyoscyamine sulfate 0.125 mg 0.125 mg PO Q6H 4 days #1 6 tabs 10/04/24 Unknown Rx tablet (Levsin) ondansetron 4 mg disintegrating 4 mg PO Q6H PRN nausea and 10/04/24 Unknown Rx tablet vomiting #20 tabs ondansetron 4 mg disintegrating 4 mg PO Q6H PRN nausea and 11/17/24 Unknown Rx tablet vomiting #20 tabs Allergy/AdvReac Type Severity Reaction Status Date / Time fentanyl Allergy Severe Shortness Verified 11/17/24 17:27 of breath Iodinated Contrast Media (CT) Allergy Shortness Verified 11/17/24 17:25 of breath ketorolac tromethamine (From Allergy Rash Verified 11/17/24 17:25 Toradol) metronidazole (From Flagyl) Allergy Hives Verified 11/17/24 17:25 Penicillins Allergy Hives Verified 11/17/24 17:25 dicyclomine (From Bentyl) AdvReac Mild Hives Verified 11/17/24 17:25 aspirin AdvReac Upset Verified 11/17/24 17:25 Stomach Family History Aunt Breast cancer Grandfather CAD (coronary artery disease) Father Heart disease, Onset Age: 73 Triple bypass Mother Heart disease, Onset Age: 62 Other Diabetes Surgical History Hx of tooth extraction History of cholecystectomy H/O ovarian cystectomy (09/2019) History of bilateral oophorectomy History of hysterectomy History of tubal ligation Social History household members: none Smoking Status: Current every day smoker tobacco type: cigarettes Tobacco: How many years used: 15 alcohol intake: current substance use type: does not use ROS ROS ED ROS Narrative Constitutional: Denies fevers, chills, headaches, lightness, dizziness Eyes: Denies any change in vision double vision blurry vision Cardiovascular: Denies chest pain or palpitations Respiratory: Denies shortness of breath Abdomen: Complains of abdominal pain as noted above denies any vomiting or diarrhea : Denies any urinary symptoms Neurological: Denies numbness, weakness, tingling Musculoskeletal: Complains of left flank pain as noted above Skin: Denies rashes or lesions EXAM Physical Exam Narrative Exam Narrative: General: Patient lying in bed rest comfortably did not appear to be in acute distress Head: Atraumatic, normocephalic Eyes: PERRL bilaterally, EOMI bilaterally, no conjunctival injection noted Neck: Soft, supple, trachea midline Cardiovascular: Regular rate and rhythm no murmurs gallops rubs noted Respiratory: Clear to auscultation bilaterally Abdomen: Soft, nondistended, mild tenderness palpation diffusely throughout her abdomen no rebound or guarding on exam Musculoskeletal: No CVA tenderness noted on exam no tenderness palpation midlineof thoracic lumbar spine Extremities: +5/5 strength noted in the bilateral upper and lower extremities Neurological: Patient following commands knew that she was at [facility] year is 2024 Skin: Warm, dry, intact no rashes or lesions noted Const Vital Signs: 11/17/24 17:11/17/24 19:24 Temperature 97.8 F Temperature Source Temporal Pulse Rate 88 78 Respiratory Rate 20 H 14 Blood Pressure 188/100 H 140/80 H Blood Pressure Mean 129 100 Pulse Ox 99 98 Oxygen Delivery Method Room Air MDM MDM MDM Narrative Medical decision making narrative: Patient is a 44-year-old female who presented to the emergency department with achief complaint of abdominal pain and flank pain. On the differential diagnose includes but limited to pancreatitis, appendicitis, urolithiasis, UTI, pyelonephritis. Once workup is obtained reviewed she will be reevaluated. Patient CBC was reviewed and was largely unremarkable she had a mild leukocytosis of 11,000, hemoglobin 13.2, platelet count was noted be 292. Patient sodium normal 140, potassium of 4, creatinine normal at 1. Patient AST and ALT were 18 and 22 respectively, total bilirubin normal at 0.31. Patient's urinalysis did not reveal any evidence of infection. While awaiting CT scan the patient went to the restroom had diarrhea and she came back to the room and told the nurse that she feels much improved and would like to go home at this point time. I went back in and reevaluated the patient and she states that she does not needthe CT scan she feels much better and wants to go home. She will be given prescription for Zofran for as needed nausea. She is advised to follow-up with Dr. Rose in outpatient setting at her scheduled appointment on the . She is agreeable this plan all question concerns answered she was discharged home instable condition. Lab Data Labs: Laboratory Results - last 24 hr 11/17/24 11/17/24 17:32 17:38 WBC 11.8 H RBC 4.40 Hgb 13.2 Hct 39.8 MCV 90.5 MCH 30.0 MCHC 33.2 RDW Std Deviation 43.5 RDW Coeff of Shun 13.2 Plt Count 292 MPV 9.8 Immature Gran % (Auto) 1.000 H Neut % (Auto) 60.6 Lymph % (Auto) 32.0 [place] % (Auto) 4.8 Eos % (Auto) 1.0 Baso % (Auto) 0.6 Absolute Neuts (auto) 7.1 Absolute Lymphs (auto) 3.78 Nucleated RBC % 0 Sodium 140 Potassium 4.0 Chloride 103 Carbon Dioxide 23.8 Anion Gap 12 BUN 12 Creatinine 1.00 Estim Creat Clear Calc 74.65 Est GFR (MDRD) Non-Af 71 BUN/Creatinine Ratio 11.7 Glucose 95 Calcium 9.4 Total Bilirubin 0.31 AST 18 ALT 22 Alkaline Phosphatase 143 H Total Protein 8.0 Albumin 4.5 Globulin 3.5 Albumin/Globulin Ratio 1.3 Urine Color Yellow Urine Clarity Sl. Cloudy Urine pH 7.0 Ur Specific [place] 1.010 Urine Protein Negative Urine Glucose (UA) Normal Urine Ketones Negative Urine Occult Blood 10 H Urine Nitrite Negative Urine Bilirubin Negative Urine Urobilinogen Normal Ur Leukocyte Esterase Negative Urine RBC 0-5 SEEN Urine WBC 0 SEEN Ur Squamous Epith Cells 0-5 SEEN Urine Bacteria 0 SEEN Urine Mucus 0 SEEN Discharge Plan Triage Chief Complaint: Flank Pain ED Provider: Chance Botello Dx/Rx/DC Orders Clinical Impression: Abdominal pain Prescriptions: New ondansetron 4 mg tablet,disintegrating 4 mg PO Q6H PRN (Reason: nausea and vomiting) Qty: 20 0RF No Action trazodone 50 mg tablet 50 mg PO QHS gabapentin 400 MG capsule 400 mg PO TID PRN (Reason: NEUROPATHY ) Patient Comments: PT STATES THEIR DOCTOR RECENTLY UPPED THE DOSE THAT CAN BE TAKEN aripiprazole 10 mg tablet 10 mg PO DAILY diphenhydramine HCl [Allergy (diphenhydramine)] 25 mg capsule 25 mg PO QHS pantoprazole 40 mg tablet,delayed release (DR/EC) 40 mg PO DAILY promethazine 25 mg tablet 25 mg PO Q8H PRN PRN (Reason: nausea/vomiting) escitalopram oxalate 20 mg tablet 20 mg PO DAILY cyclobenzaprine 10 mg tablet 10 mg PO TID PRN (Reason: Muscle Spasm) Qty: 15 0RF hyoscyamine sulfate [Levsin] 0.125 mg tablet 0.125 mg PO Q6H 4 Days Qty: 16 0RF ondansetron 4 mg tablet,disintegrating 4 mg PO Q6H PRN (Reason: nausea and vomiting) Qty: 20 0RF hyoscyamine sulfate 0.125 mg tablet,disintegrating 0.125 mg PO Q6H PRN (Reason: abdominal discomfort) Qty: 10 0RF ciprofloxacin HCl 500 mg tablet 500 mg PO BID 5 Days Qty: 10 0RF lorazepam 0.5 mg tablet 0.5 mg PO DAILY PRN (Reason: ANXIETY ) Qty: 7 0RF mesalamine 1.2 gram tablet,delayed release (DR/EC) 2.4 g PO DAILY 30 Days Qty: 60 1RF Primary Care Provider: Silverio Haley Referrals: Silverio Haley MD [Primary Care Provider] - Activity Restrictions/Additional Instructions: Follow-up your doctor now per setting and return with worsening symptoms and concerns. Use Zofran as prescribed. Start bland diet advance as tolerated. Print Language: Nicaraguan Disposition Disposition: Home, Self Care What to do if you have Problems For any increased pain, shortness of breath, bleeding, nausea or vomiting, chestpain, or any unexpected problems, contact your Primary Care Provider. Call [facility] ([phone]) or report to the closest Emergency Room. Call 911 if necessary. 11/17/242022 <Electronically signed by Chance Botello DO> Cosigner Signature (if applicable): CC: Dr. Silverio Haley MD ~ Signed [facility] Work Phone: 1(193) 861-776103-06-2025 Telephone encounter Note* Telephone Encounter - Renetta Hernández RN - 11/17/2024 1:23 PM EST Appt made for patient for today for evaluation. Renetta Hernández RN [facility]03-06-2025 Miscellaneous Notes* Telephone Encounter - Renetta Hernández RN - 11/17/2024 1:23 PM EST Appt made for patient for today for evaluation. Renetta Hernández RN * Telephone Encounter - Nunu Carcamo RN - 11/16/2024 2:55 PM EST Pt reports Dr. Hernandez put her on topiramate 25 mg twice a day for her headaches. Reports for the last 2 days her left leg has been shaking and it won't stop. Pt has tried stretching, it doesn't make it stop. Pt reports even when she walks on the treadmill it shakes. Reports it's constant and the only time she doesn't notice it is when she sleeps. Pt reports the only new medication she takes is topiramate. Asking pcp if this medication could cause this shaking? Reports she even went to the ER last night b/c she thought she had kidney stones- but she didn't- it ended up being constipation. Reports the ER didn't know what would cause her leg to shake either. [facility] encounter Note * Telephone Encounter - Nunu Carcamo RN - 11/16/2024 2:55 PM EST Pt reports Dr. Hernandez put her on topiramate 25 mg twice a day for her headaches. Reports for the last 2 days her left leg has been shaking and it won't stop. Pt has tried stretching, it doesn't make it stop. Pt reports even when she walks on the treadmill it shakes. Reports it's constant and the only time she doesn't notice it is when she sleeps. Pt reports the only new medication she takes is topiramate. Asking pcp if this medication could cause this shaking? Reports she even went to the ER last night b/c she thought she had kidney stones- but she didn't- it ended up being constipation. Reports the ER didn't know what would cause her leg to shake either. [facility]02[facility]25 NoteHNO ID: [id number] Author: MARCELINO BESS APRN.CLASSROOM TEACHER Service: ? Author Type: Nurse Practitioner Type: Progress Notes Filed: 11/04/2024 18:48 Note Text: Subjective HPI Nontoxic-appearing 44-year-old female presents urgent care chief plaint pharyngitis. Duration of symptoms 2 days. Associated symptoms sore throat. Presents today for evaluation. OTC medications none. Denies any swelling and secretion decreased range of motion of neck or trismus. No fevers. Past medical history prescription medications allergies reviewed. .Patient presents with: Mouth/Lip Problem: Pain in mouth throat and tongue, thick covered sore tongue, x 2 days PAST MEDICAL HISTORY Diagnosis Date Allergic rhinitis, cause unspecified 05/17/2008 Spring and summer Benign liver cyst 05/24/2010 CT scan at [facility] 11/2009 and 04/2010 showe 4 mm increase in size. No pain. No elevated LFTs on 03/11/2010. Calculus of kidney 05/17/[address] 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 Functional vomiting 06/25/2021 Hemorrhoids History of blood transfusion Hydronephrosis of left kidney 02/05/2017 Hydroureter on left 02/05/2017 Impaired fasting glucose 05/17/2008 Sugar 104 fasting, 04/21 Intractable nausea and vomiting 05/25/2020 Marijuana use 07/10/2020 ER visit 07/06/2020, [place] MIGRAINE 05/17/2008 Has used imitrex with good response; Keeps Vicodin on hand when needed; Open wound of left breast 01/19/2023 Ovarian cyst 07/15/2012 Pancreatitis Smoker 05/17/2008 Started age 26, 1/2 a PPD PAST SURGICAL HISTORY Procedure Laterality Date CHOLECYSTECTOMY HX COLONOSCOPY 05/08/2020 poor prep, stool in entire colon, int hemorrhoids, diverticulosis DILATION AND CURETTAGE DXAND/THER NONOBSTETRIC 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, mild esophagitis, 2 cm hiatal hernia EGD W/O BRSH SPEC VARICIES INJ 05/28/2020 LIG/TRNSXJ FLP TUBE ABDL/VAG APPR UNI/BI OOPHORECTOMY PARTIAL/TOTAL UNI/BI 2009 Oophorectomy right, still has left OOPHORECTOMY PARTIAL/TOTAL UNI/BI 01/2015 left removed PAST SURGICAL HISTORY OF uterine ablation PAST SURGICAL HISTORY OF cyst removal TOTAL ABDOMINAL HYSTERECT W/WO RMVL TUBE OVARY 08/31/2006 Hysterectomy, MICHELINE ALLERGIES Aspirin, Penicillins, Cephalexin, Chlorhexidine, Ciprofloxacin, Iodinated Contrast Media, Toradol [Ketorolac], Asa [Salicylates], Contrast Dye [Iodine], Dicyclomine, and Ibuprofen MEDICATIONS predniSONE (DELTASONE) 10 mg tablet Take 4 tabs daily x 3 days, then 3 tabs x 3 days, 2 tabs x 3 days, then 1 tab x3 days with food. promethazine (PHENERGAN) 25 mg tablet Take 1 tablet by mouth every 8 hours as needed for nausea/vomiting. topiramate (TOPAMAX) 25 mg tablet Take 1 tablet by mouth two times a day. traZODone (DESYREL) 50 mg tablet Take 1 tablet by mouth daily at bedtime. [facility] LORazepam (ATIVAN) 0.5 mg Take 1 tablet by mouth once daily as needed. [facility]. escitalopram oxalate (LEXAPRO) 20 mg tablet Take 1 tablet by mouth once daily. [facility]. ARIPiprazole (ABILIFY) 10 mg tablet Take 1 tablet by mouth once daily. [facility]. pantoprazole DR (PROTONIX) 40 mg tablet Take 1 tablet by mouth daily before breakfast. Take on empty stomach, 1/2 hr before meal. sodium chloride (SALINE NASAL) 0.65 % nasal spray Use 1 [place] in the nose as needed. gabapentin (NEURONTIN) 400 mg capsule Take 1 capsule by mouth every 12 hours for 90 days. etodolac (LODINE) 400 mg tablet Take 1 tablet by mouth two times a day as needed. albuterol HFA (VENTOLIN HFA) 90 mcg/actuation inhaler Inhale 2 Puffs as instructed every 4 hours as needed for wheezing/shortness of breath. Cholecalciferol, Vitamin D3, 50 mcg (2,000 unit) cap Take 1 capsule by mouth once daily. SUMAtriptan (IMITREX STATDOSE PEN) 6 mg/0.5 mL pen Inject 0.5 mL subcutaneously as needed for migraine headache (see administration instructions). May repeat dose after 1 hour if needed. Maximum daily dose is 12 mg per day. diphenhydrAMINE (BENADRYL) 25 mg capsule Take 50 mg by mouth at bedtime as needed. FAMILY HISTORY Problem Relation Age of Onset Thyroid Mother unsure of details Arthritis Mother fibromyalgia Blood Disease Mother blood clots, unsure of details (aorta?) No Known Problems Father No Known Problems Sister No Known Problems Sister No Known Problems Brother Diabetes Maternal Grandmother Diabetes Maternal Grandfather Lipids Maternal Grandfather Stroke Maternal Grandfather Coronary Artery Disease Maternal Grandfather Cataract Maternal Grandfather Pancreatic Cancer Maternal Grandfather Diabetes Paternal Grandmother Diabetes Paternal Grandfather Coronary Joy (more content not included)...[facility]02-21-2025 History of Present illness Narrative* Marcelino 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 - 11/04/2024 6:33 PM EST Images from the original note were not included. Subjective HPI Nontoxic-appearing 44-year-old female presents urgent care chief plaint pharyngitis. Duration of symptoms 2 days. Associated symptoms sore throat. Presents today for evaluation. OTC medications none.Denies any swelling and secretion decreased range of motion of neck or trismus. No fevers. Past medical history prescription medications allergies reviewed. .Patient presents with: Mouth/Lip Problem: Pain in mouth throat and tongue, thick covered sore tongue, x 2 days PAST MEDICAL HISTORY Diagnosis Date Allergic rhinitis, cause unspecified 05/17/2008spring and summer Benign liver cyst 05/24/2010 CT scan at [facility] 11/2009 and 04/2010 showe 4 mm increase in size. No pain. No elevated LFTs on 03/11/2010. Calculus of kidney 05/17/[address] 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 Functional vomiting 06/25/2021 Hemorrhoids History of blood transfusion Hydronephrosis of left kidney 02/05/2017 Hydroureter on left 02/05/2017 Impaired fasting glucose 05/17/2008 Sugar 104 fasting, 04/21 Intractable nausea and vomiting 05/25/2020 Marijuana use 07/10/2020 ER visit 07/06/2020, [place] MIGRAINE 05/17/2008 Has used imitrex with good response; Keeps Vicodin on hand when needed; Open wound of left breast 01/19/2023 Ovarian cyst 07/15/2012 Pancreatitis Smoker 05/17/2008 Started age 26, 1/2 a PPD 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, mild esophagitis, 2 cm hiatal hernia EGD W/O BRSH SPEC VARICIES INJ 05/28/2020 LIG/TRNSXJ FLP TUBE ABDL/VAG APPR UNI/BI OOPHORECTOMY PARTIAL/TOTAL UNI/BI 2009 Oophorectomy right, still has left OOPHORECTOMY PARTIAL/TOTAL UNI/BI 01/2015 left removed PAST SURGICAL HISTORY OF uterine ablation PAST SURGICAL HISTORY OF cyst removal TOTAL ABDOMINAL HYSTERECT W/WO RMVL TUBE OVARY 08/31/2006 Hysterectomy, MICHELINE ALLERGIES Aspirin, Penicillins, Cephalexin, Chlorhexidine, Ciprofloxacin, Iodinated Contrast Media,Toradol [Ketorolac], Asa [Salicylates], Contrast Dye [Iodine], Dicyclomine, and Ibuprofen MEDICATIONS predniSONE (DELTASONE) 10 mg tablet Take 4 tabs daily x 3 days, then 3 tabs x 3 days, 2 tabs x 3 days, then 1 tab x3 days with food. promethazine (PHENERGAN) 25 mg tablet Take 1 tablet by mouth every 8 hours as needed for nausea/vomiting. topiramate (TOPAMAX) 25 mg tablet Take 1 tablet by mouth two times a day. traZODone (DESYREL) 50 mg tablet Take 1 tablet by mouth daily at bedtime. [facility]. LORazepam (ATIVAN) 0.5 mg Take 1 tablet by mouth once daily as needed. [facility]. escitalopram oxalate (LEXAPRO) 20 mg tablet Take 1 tablet by mouth once daily. [facility]. ARIPiprazole (ABILIFY) 10 mg tablet Take 1 tablet by mouth once daily. [facility]. pantoprazole DR (PROTONIX) 40 mg tablet Take 1 tablet by mouth daily before breakfast. Take on empty stomach, 1/2 hr before meal. sodium chloride (SALINE NASAL) 0.65 % nasal spray Use 1 [place] in the nose as needed. gabapentin (NEURONTIN) 400 mg capsule Take 1 capsule by mouth every 12 hours for 90 days. etodolac (LODINE) 400 mg tablet Take 1 tablet by mouth two times a day as needed. albuterol HFA (VENTOLIN HFA) 90 mcg/actuation inhaler Inhale 2 Puffs as instructed every 4 hours asneeded for wheezing/shortness of breath. Cholecalciferol, Vitamin D3, 50 mcg (2,000 unit) cap Take 1 capsule by mouth once daily. SUMAtriptan (IMITREX STATDOSE PEN) 6 mg/0.5 mL pen Inject 0.5 mL subcutaneously as needed for migraine headache (see administration instructions). May repeat dose after 1 hour if needed. Maximum daily dose is 12 mg per day. diphenhydrAMINE (BENADRYL) 25 mg capsule Take 50 mg by mouth at bedtime as needed. FAMILY HISTORY Problem Relation Age of Onset Thyroid Mother unsure of details Arthritis Mother fibromyalgia Blood Disease Mother blood clots, unsure of details (aorta?) No Known Problems Father No Known Problems Sister No Known Problems Sister No Known Problems Brother Diabetes Maternal Grandmother Diabetes Maternal Grandfather Lipids Maternal Grandfather Stroke Maternal Grandfather Coronary Artery Disease Maternal Grandfather Cataract Maternal Grandfather Pancreatic Cancer Maternal Grandfather Diabetes Paternal Grandmother Diabetes Paternal Grandfather Coronary Artery Disease Paternal Grandfather No Known Problems Son No Known Problems Son Breast Cancer Maternal Aunt Lipids Maternal Uncle Coronary Artery Disease Maternal Uncle other (ovarian ca) Other maternal cousin Colon Cancer No Family History Social History Tobacco Use Smoking status: Some Days Average packs/day: 0.5 packs/day for 10.4 years (5.2 ttl pk-yrs) Types: Cigarettes Start date: 01/12/2014 Last attempt to quit: 01/12/2017 Years since quittin.8 Smokeless tobacco: Never Tobacco comments: 1/2 pack per day Vaping Use Vaping status: Never Used Substance Use Topics Alcohol use: Yes Comment: Occasional Drug use: Never BP 111/74 Pulse 89 Temp 37.1 C (98.8 F) Resp 20 Wt 94 kg (207 lb 3.7 oz) LMP 08/10/2006 SpO2 99% BMI 38.63 kg/m Review of Systems Constitutional: Negative for chills, fever and malaise/fatigue. HENT: Positive for sore throat. Negative for congestion, ear discharge, ear pain and sinus pain. Eyes: Negative for blurred vision, pain, discharge and redness. Respiratory: Negative for cough, hemoptysis, sputum production, shortness of breath, wheezing and stridor. Cardiovascular: Negative for chest pain. Gastrointestinal: Negative for abdominal pain, diarrhea, nausea and vomiting. Musculoskeletal: Negative for myalgias. Skin: Negative for itching and rash. Neurological: Negative for dizziness and headaches. Objective Physical Exam Constitutional: General: She is not in acute distress. Appearance: She is not diaphoretic. HENT: Head: Normocephalic. Jaw: No trismus, tenderness, swelling or pain on movement. Mouth/Throat: Mouth: Mucous membranes are moist. Pharynx: Oropharynx is clear. Uvula midline. Posterior oropharyngeal erythema present. No pharyngeal swelling, oropharyngeal exudate or uvula swelling. Comments: Shallow ulcers noted highlighted area. Ulcers have a white/yellow appearance. Eyes: Conjunctiva/sclera: Conjunctivae normal. Pupils: Pupils are equal, round, and reactive to light. Cardiovascular: Rate and Rhythm: Normal rate and regular rhythm. Heart sounds: Normal heart sounds. Pulmonary: Effort: Pulmonary effort is normal. No tachypnea, accessory muscle usage or respiratory distress. Breath sounds: Normal breath sounds. No stridor. No wheezing, rhonchi or rales. Abdominal: General: There is no distension. Palpations: Abdomen is soft. Tenderness: There is no abdominal tenderness. There is no guarding or rebound. Musculoskeletal: Cervical back: Normal range of motion and neck supple. No edema, erythema, rigidity or tenderness. No pain with movement. Normal range of motion. Lymphadenopathy: Cervical: No cervical adenopathy. Skin: General: Skin is warm and dry. Neurological: Mental Status: She is alert and oriented to person, place, and time. ASSESSMENT/PLAN: 1. Pharyngitis, unspecified etiology - ICD9: 462, ICD10: J02.9 - STREP A MOLECULAR (POC) Strep test negative. Suspicious of viral etiology. No evidence of bacterial infection. Patient was educated on supportive therapies. Patient will follow up with primary care provider as needed. Patient was instructed to immediately proceed to emergency room for any new, worsening, or symptoms lasting longer than anticipated. The patient's clinical presentation is otherwise unremarkable at this time. Based on exam and clinical finding, the patient is stable for discharge. Plan of care was discussed with patient. Patient verbalizes understanding and agrees to plan of care. This note was generated using [employer] software. It may contain errors in wording, punctuation, or spelling. Marcelino 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 [facility] NoteHNO ID: [id number] Author: ROBBIN HERNANDEZ MD Service: ? Author Type: Physician Type: Progress Notes Filed: 10/27/2024 14:06 Note Text: This note was created using [employer]. Subjective Patient presents with: Headache Sally Vargas is a 44 year old year old female who presents with complaint of acute on chronic migraine headache(s) for 3 weeks. Pain is located diffusely all over and described as burning, moderate, severe, and throbbing. Headaches are described as being severe in intensity. Individual headaches begin associated with symptoms of nausea, vomiting, photophobia, and phonophobia. Headaches may last for days and have been occuring daily.. Symptoms have been treated with resting in quiet dark room and antimigraine drugs Imitrex with decreasing relief. The patient denies numbness, weakness, slurred speech, visual changes, difficulty with gait, change in level of consciousness, change in orientation, and fever. She sees Eduar Alfonso for psychiatry. There seems to be overlap of medication refills, which have spilled over to primary care. Medication reconciliation was done. Review of Systems Per HPI. ACTIVE PROBLEM LIST Calculus of Kidney Allergic rhinitis, cause unspecified Migraine Without Aura Cigarette Smoker Generalized Anxiety Disorder Reactive Depression Adjustment Insomnia Bilateral Low Back Pain Without Sciatica Lung Nodules Pain of Multiple Sites Obesity, Class II, Bmi 35-39.9 Acute Asthmatic Bronchitis Social History Tobacco Use Smoking status: Some Days Average packs/day: 0.5 packs/day for 10.4 years (5.2 ttl pk-yrs) Types: Cigarettes Start date: 01/12/2014 Last attempt to quit: 01/12/2017 Years since quittin.7 Smokeless tobacco: Never Tobacco comments: 1/2 pack per day Vaping Use Vaping status: Never Used Substance Use Topics Alcohol use: Yes Comment: Occasional Drug use: Never Current Outpatient Medications Medication Sig pantoprazole DR (PROTONIX) 40 mg tablet Take 1 tablet by mouth daily before breakfast. Take on empty stomach, 1/2 hr before meal. sodium chloride (SALINE NASAL) 0.65 % nasal spray Use 1 [place] in the nose as needed. cefdinir (OMNICEF) 300 mg capsule Take 1 capsule by mouth two times a day for 10 days. gabapentin (NEURONTIN) 400 mg capsule Take 1 capsule by mouth every 12 hours for 90 days. etodolac (LODINE) 400 mg tablet Take 1 tablet by mouth two times a day as needed. albuterol HFA (VENTOLIN HFA) 90 mcg/actuation inhaler Inhale 2 Puffs as instructed every 4 hours as needed for wheezing/shortness of breath. Cholecalciferol, Vitamin D3, 50 mcg (2,000 unit) cap Take 1 capsule by mouth once daily. SUMAtriptan (IMITREX STATDOSE PEN) 6 mg/0.5 mL pen Inject 0.5 mL subcutaneously as needed for migraine headache (see administration instructions). May repeat dose after 1 hour if needed. Maximum daily dose is 12 mg per day. diphenhydrAMINE (BENADRYL) 25 mg capsule Take 50 mg by mouth at bedtime as needed. predniSONE (DELTASONE) 10 mg tablet Take 4 tabs daily x 3 days, then 3 tabs x 3 days, 2 tabs x 3 days, then 1 tab x3 days with food. promethazine (PHENERGAN) 25 mg tablet Take 1 tablet by mouth every 8 hours as needed for nausea/vomiting. topiramate (TOPAMAX) 25 mg tablet Take 1 tablet by mouth two times a day. traZODone (DESYREL) 50 mg tablet Take 1 tablet by mouth daily at bedtime. [facility]. LORazepam (ATIVAN) 0.5 mg Take 1 tablet by mouth once daily as needed. [facility]. escitalopram oxalate (LEXAPRO) 20 mg tablet Take 1 tablet by mouth once daily. [facility]. ARIPiprazole (ABILIFY) 10 mg tablet Take 1 tablet by mouth once daily. From [facility]. No current facility-administered medications for this visit. Objective BP 120/78 (BP Site: Left Arm, BP Position: Sitting, BP Cuff Size: Large Adult) Pulse 80 Temp 37.2 ?C (98.9 ?F) (Temporal) Resp 18 Wt 94.8 kg (208 lb 15.9 oz) LMP 08/10/2006 BMI 38.96 kg/m? Physical Exam Constitutional: General: She is not in acute distress. Appearance: She is not ill-appearing. HENT: Head: Normocephalic. Right Ear: Tympanic membrane normal. Left Ear: Tympanic membrane normal. Nose: No congestion or rhinorrhea. Eyes: Extraocular Movements: Extraocular movements intact. Conjunctiva/sclera: Conjunctivae normal. Cardiovascular: Heart sounds: Normal heart sounds. Pulmonary: Breath sounds: Normal breath sounds. Musculoskeletal: Cervical back: Neck supple. Right lower leg: No edema. Left lower leg: No edema. Neurological: General: No focal deficit present. Mental Status: She is alert and oriented to person, place, and time. Cranial Nerves: No cranial nerve deficit. Sensory: No sensory deficit. Motor: No weakness. Coordination: Coordination normal. Gait: Gait normal. Assessment and Plan 1. Migraine without aura and without status migrainosus, not (more content not included)...[facility] History of Present illness Narrative* Robbin Hernandez MD - 10/27/2024 1:14 PM EST This note was created using [employer] Subjective Patient presents with: Headache Sally Vargas is a 44 year old year old female who presents with complaint of acute on chronic migraine headache(s) for 3 weeks. Pain is located diffusely all over and described as burning, moderate, severe, and throbbing. Headaches are described as being severe in intensity. Individual headaches begin associated with symptoms of nausea, vomiting, photophobia, and phonophobia. Headaches may last for days and have been occuring daily.. Symptoms have been treated with resting in quiet dark room and antimigraine drugs Imitrex with decreasing relief. The patient denies numbness, weakness, slurred speech, visual changes, difficulty with gait, change in level of consciousness, change in orientation, and fever. She sees Eduar Alfonso for psychiatry. There seems to be overlap of medication refills, which have spilled over to primary care. Medication reconciliation was done. Review of Systems Per HPI. ACTIVE PROBLEM LIST Calculus of Kidney Allergic rhinitis, cause unspecified Migraine Without Aura Cigarette Smoker Generalized Anxiety Disorder Reactive Depression Adjustment Insomnia Bilateral Low Back Pain Without Sciatica Lung Nodules Pain of Multiple Sites Obesity, Class II, Bmi 35-39.9 Acute Asthmatic Bronchitis Social History Tobacco Use Smoking status: Some Days Average packs/day: 0.5 packs/day for 10.4 years (5.2 ttl pk-yrs) Types: Cigarettes Start date: 01/12/2014 Last attempt to quit: 01/12/2017 Years since quittin.7 Smokeless tobacco: Never Tobacco comments: 1/2 pack per day Vaping Use Vaping status: Never Used Substance Use Topics Alcohol use: Yes Comment: Occasional Drug use: Never Current Outpatient Medications Medication Sig pantoprazole DR (PROTONIX) 40 mg tablet Take 1 tablet by mouth daily before breakfast. Take on empty stomach, 1/2 hr before meal. sodium chloride (SALINE NASAL) 0.65 % nasal spray Use 1 [place] in the nose as needed. cefdinir (OMNICEF) 300 mg capsule Take 1 capsule by mouth two times a day for 10 days. gabapentin (NEURONTIN) 400 mg capsule Take 1 capsule by mouth every 12 hours for 90 days. etodolac (LODINE) 400 mg tablet Take 1 tablet by mouth two times a day as needed. albuterol HFA (VENTOLIN HFA) 90 mcg/actuation inhaler Inhale 2 Puffs as instructed every 4 hours asneeded for wheezing/shortness of breath. Cholecalciferol, Vitamin D3, 50 mcg (2,000 unit) cap Take 1 capsule by mouth once daily. SUMAtriptan (IMITREX STATDOSE PEN) 6 mg/0.5 mL pen Inject 0.5 mL subcutaneously as needed for migraine headache (see administration instructions). May repeat dose after 1 hour if needed. Maximum daily dose is 12 mg per day. diphenhydrAMINE (BENADRYL) 25 mg capsule Take 50 mg by mouth at bedtime as needed. predniSONE (DELTASONE) 10 mg tablet Take 4 tabs daily x 3 days, then 3 tabs x 3 days, 2 tabs x 3 days, then 1 tab x3 days with food. promethazine (PHENERGAN) 25 mg tablet Take 1 tablet by mouth every 8 hours as needed for nausea/vomiting. topiramate (TOPAMAX) 25 mg tablet Take 1 tablet by mouth two times a day. traZODone (DESYREL) 50 mg tablet Take 1 tablet by mouth daily at bedtime. From [facility]. LORazepam (ATIVAN) 0.5 mg Take 1 tablet by mouth once daily as needed. [facility]. escitalopram oxalate (LEXAPRO) 20 mg tablet Take 1 tablet by mouth once daily. [facility]. ARIPiprazole (ABILIFY) 10 mg tablet Take 1 tablet by mouth once daily. [facility]. No current facility-administered medications for this visit. Objective BP 120/78 (BP Site: Left Arm, BP Position: Sitting, BP Cuff Size: Large Adult) Pulse 80 Temp 37.2 C (98.9 F) (Temporal) Resp 18 Wt 94.8 kg (208 lb 15.9 oz) LMP 08/10/2006 BMI 38.96 kg/m Physical Exam Constitutional: General: She is not in acute distress. Appearance: She is not ill-appearing. HENT: Head: Normocephalic. Right Ear: Tympanic membrane normal. Left Ear: Tympanic membrane normal. Nose: No congestion or rhinorrhea. Eyes: Extraocular Movements: Extraocular movements intact. Conjunctiva/sclera: Conjunctivae normal. Cardiovascular: Heart sounds: Normal heart sounds. Pulmonary: Breath sounds: Normal breath sounds. Musculoskeletal: Cervical back: Neck supple. Right lower leg: No edema. Left lower leg: No edema. Neurological: General: No focal deficit present. Mental Status: She is alert and oriented to person, place, and time. Cranial Nerves: No cranial nerve deficit. Sensory: No sensory deficit. Motor: No weakness. Coordination: Coordination normal. Gait: Gait normal. Assessment and Plan 1. Migraine without aura and without status migrainosus, not intractable - ICD9: 346.10, ICD10: G43.009 (primary diagnosis) Shared medical decision making was done. - PREDNISONE 10 MG TABLET. She did not fill this earlier this month. - PROMETHAZINE 25 MG TABLET - TOPIRAMATE 25 MG TABLET. Take one(1) tablet two(2) times daily. Discussed medication dosage, usage, goals of therapy, and side effects. 2. Generalized anxiety disorder - ICD9: 300.02, ICD10: F41.1 Richard Alfonso, MANUELITO. - TRAZODONE 50 MG TABLET - LORAZEPAM 0.5 MG TABLET - ESCITALOPRAM 20 MG TABLET - ARIPIPRAZOLE 10 MG TABLET 3. Recurrent depressive disorder, current episode moderate (HCC) - ICD9: 296.32, ICD10: F33.1 Richard Alfonso, CLASSROOM TEACHER - TRAZODONE 50 MG TABLET - ESCITALOPRAM 20 MG TABLET - ARIPIPRAZOLE 10 MG TABLET Robbin Hernandez MD [facility]* Patient Instructions* Silverio Haley MD - 10/18/2024 12:25 PM EST - Start Prednisone taper as prescribed: 40 mg for 3 days, 30 mg for 3 days, 20 mg for 3 days, and 10 mg for 3 days; sent to [facility] in [place]. - Refill for Pantoprazole sent to [facility] in [place]; continue taking as prescribed. - Use exoi-wwt-rfjwpwc saline nasal spray as needed to alleviate nasal congestion. - Consider using [place] Gel for thicker saline application if needed. - Omnicef (Cefdinir) prescribed as a backup antibiotic; take as directed if symptoms worsen. - Monitor for any signs of thrush (white patches in the mouth, sore tongue, red spots) and report if noticed. - If reflux symptoms occur more than a couple of times a week, contact the clinic for a possible adjustment to Pantoprazole dosage. - If symptoms do not improve, inform the clinic to discuss potential referrals to ENT or pulmonology. - Follow up with the clinic in a week to report progress. [facility]25 NoteHNO ID: [id number] Author: SILVERIO HALEY MD Service: ? Author Type: Physician Type: Progress Notes Filed: 10/18/2024 12:27 Note Text: This note was created using [employer]. Subjective Sally Vargas is a 44 year old female. Patient presents with: Sore Throat: On going for about 4 weeks.Has been seen in UR x2. Negative for strep.Started on doxycycline and after first dose she started itching. Cough: dry non-productive cough SUBJECTIVE: Sally Vargas is a 44 year old year old lady here today for follow up appointment for review of medical conditions. Sally Vargas is a 44-year-old female, with a history of smoking, presenting with a persistent sore throat, dry cough, and ear pain. Sally reports a 4-week history of a persistent sore throat and dry cough, accompanied by ear pain, primarily in the right ear. She has been unable to eat for 2 weeks due to the severity of the sore throat, consuming only minimal water. She has tried various treatments, including Sudafed, DayQuil, and NyQuil, which provided temporary relief, but her symptoms worsened. She also used a saline nasal spray, which helped slightly with ear pain and sinus congestion. She denies emesis. She was recently prescribed doxycycline but discontinued it after the first dose due to pruritus, which was relieved by Benadryl. She has a known allergy to penicillin, which causes a rash, and has previously experienced pruritus with cephalexin. She denies any known allergies to cefdinir or Bactrim. She has a history of GERD and is currently taking pantoprazole, for which she requests a refill. She has not been using her Wixela (Advair) inhaler but has been using albuterol as needed. She denies current use of prednisone but recalls it being effective in the past. She reports a history of smoking, having quit in July after smoking half a pack per day since resuming in February, following a brief cessation in January. She denies any recent fevers or chills. PAST MEDICAL HISTORY Diagnosis Date Allergic rhinitis, cause unspecified 05/17/2008 Spring and summer Benign liver cyst 05/24/2010 CT scan at [facility] 11/2009 and 04/2010 showe 4 mm increase in size. No pain. No elevated LFTs on 03/11/2010. Calculus of kidney 05/17/[address] Nicolas: Hospitalized age 20, and again later -- no procedures so far ([facility], [facility], [address] [facility]) Cancer (HCC) COVID-19 virus infection 10/07/202109/2021 Diverticulosis Dysmenorrhea Hemorrhoids History of blood transfusion Impaired fasting glucose 05/17/2008 Sugar 104 fasting, 04/21 Intractable nausea and vomiting 05/25/2020 Marijuana use 07/10/2020 ER visit 07/06/2020, [place] [facility] 05/17/2008 Has used imitrex with good response; Keeps Vicodin on hand when needed; Ovarian cyst 07/15/2012 Pancreatitis Smoker 05/17/2008 Started age 26, 1/2 a PPD Current Outpatient Medications Medication Sig gabapentin (NEURONTIN) 400 mg capsule Take 1 capsule by mouth every 12 hours for 90 days. traZODone (DESYREL) 50 mg tablet Take 1 tablet by mouth daily at bedtime. ARIPiprazole (ABILIFY) 10 mg tablet Take 1 tablet by mouth once daily. LORazepam (ATIVAN) 0.5 mg Take 1 tablet by mouth once daily as needed for up to 30 days. escitalopram oxalate (LEXAPRO) 20 mg tablet Take 1 tablet by mouth once daily. etodolac (LODINE) 400 mg tablet Take 1 tablet by mouth two times a day as needed. albuterol HFA (VENTOLIN HFA) 90 mcg/actuation inhaler Inhale 2 Puffs as instructed every 4 hours as needed for wheezing/shortness of breath. Cholecalciferol, Vitamin D3, 50 mcg (2,000 unit) cap Take 1 capsule by mouth once daily. SUMAtriptan (IMITREX STATDOSE PEN) 6 mg/0.5 mL pen Inject 0.5 mL subcutaneously as needed for migraine headache (see administration instructions). May repeat dose after 1 hour if needed. Maximum daily dose is 12 mg per day. pantoprazole DR (PROTONIX) 40 mg tablet Take 1 tablet by mouth daily before breakfast. Take on empty stomach, 1/2 hr before meal. promethazine (PHENERGAN) 25 mg tablet Take 1 tablet by mouth every 8 hours as needed for nausea/vomiting. dxxotr-kbdwqcav-uhxutps (CREON 3) 3,000-9,500- 15,000 unit delayed release capsule Take 1 capsule by mouth three times a day with meals. diphenhydrAMINE (BENADRYL) 25 mg capsule Take 50 mg by mouth at bedtime as needed. doxycycline (VIBRA-TABS) 100 mg tablet Take 1 tablet by mouth two times a day for 5 days. (Patient not taking: Reported on 10/18/2024) fluticasone-salmeterol (WIXELA INHUB) 500-50 mcg/dose dsdv Inhale 1 Puff as instructed two times a day. (Patient not taking: Reported on 10/03/2024) fluticasone-salmeterol (WIXELA INHUB) 250-50 mcg/dose inhaler Inhale 1 Puff as instructed two times a day. (Patient not taking: Reported on 10/03/2024) Mesalamine (LIALDA) 1.2 gram EC tablet Take 1,200 mg by mouth once daily. (Patient not taking: Reported on 10/13/2024) No current facility-admi (more content not included)...[facility]02-04[facility] History of Present illness Narrative* Silverio Haley MD - 10/18/2024 12:04 PM EST This note was created using [employer]. Subjective Sally Vargas is a 44 year old female. Patient presents with: Sore Throat: On going for about 4 weeks.Has been seen in [place] x2. Negative for strep.Started on doxycycline and after first dose she started itching. Cough: dry non-productive cough SUBJECTIVE: Sally Vargas is a 44 year old year old lady here today for follow up appointment for review ofmedical conditions. Sally Vargas is a 44-year-old female, with a history of smoking, presenting with a persistent sore throat, dry cough, and ear pain. Sally reports a 4-week history of a persistent sore throat and dry cough, accompanied by ear pain, primarily in the right ear. She has been unable to eat for 2 weeks due to the severity of the sorethroat, consuming only minimal water. She has tried various treatments, including Sudafed, DayQuil,and NyQuil, which provided temporary relief, but her symptoms worsened. She also used a saline nasal spray, which helped slightly with ear pain and sinus congestion. She denies emesis. She was recently prescribed doxycycline but discontinued it after the first dose due to pruritus, which was relieved by Benadryl. She has a known allergy to penicillin, which causes a rash, and has previously experienced pruritus with cephalexin. She denies any known allergies to cefdinir or Bactrim. She has a history of GERD and is currently taking pantoprazole, for which she requests a refill. She has not been using her Wixela (Advair) inhaler but has been using albuterol as needed. She denies current use of prednisone but recalls it being effective in the past. She reports a history of smoking, having quit in July after smoking half a pack per day since resuming in February, following a brief cessation in January. She denies any recent fevers or chills. PAST MEDICAL HISTORY Diagnosis Date Allergic rhinitis, cause unspecified 05/17/2008 Spring and summer Benign liver cyst 05/24/2010 CT scan at [facility] 11/2009 and 04/2010 showe 4 mm increase in size. No pain. No elevated LFTs on 03/11/2010. Calculus of kidney 05/17/[address] Nicolas: Hospitalized age 20, and again later -- no procedures so far ([facility], [address] [facility]) Cancer (HCC) COVID-19 virus infection 10/07/202109/2021 Diverticulosis Dysmenorrhea Hemorrhoids History of blood transfusion Impaired fasting glucose 05/17/2008 Sugar 104 fasting, 04/21 Intractable nausea and vomiting 05/25/2020 Marijuana use 07/10/2020 ER visit 07/06/2020, [place] MIGRAINE 05/17/2008 Has used imitrex with good response; Keeps Vicodin on hand when needed; Ovarian cyst 07/15/2012 Pancreatitis Smoker 05/17/2008 Started age 26, 1/2 a PPD Current Outpatient Medications Medication Sig gabapentin (NEURONTIN) 400 mg capsule Take 1 capsule by mouth every 12 hours for 90 days. traZODone (DESYREL) 50 mg tablet Take 1 tablet by mouth daily at bedtime. ARIPiprazole (ABILIFY) 10 mg tablet Take 1 tablet by mouth once daily. LORazepam (ATIVAN) 0.5 mg Take 1 tablet by mouth once daily as needed for up to 30 days. escitalopram oxalate (LEXAPRO) 20 mg tablet Take 1 tablet by mouth once daily. etodolac (LODINE) 400 mg tablet Take 1 tablet by mouth two times a day as needed. albuterol HFA (VENTOLIN HFA) 90 mcg/actuation inhaler Inhale 2 Puffs as instructed every 4 hours asneeded for wheezing/shortness of breath. Cholecalciferol, Vitamin D3, 50 mcg (2,000 unit) cap Take 1 capsule by mouth once daily. SUMAtriptan (IMITREX STATDOSE PEN) 6 mg/0.5 mL pen Inject 0.5 mL subcutaneously as needed for migraine headache (see administration instructions). May repeat dose after 1 hour if needed. Maximum daily dose is 12 mg per day. pantoprazole DR (PROTONIX) 40 mg tablet Take 1 tablet by mouth daily before breakfast. Take on empty stomach, 1/2 hr before meal. promethazine (PHENERGAN) 25 mg tablet Take 1 tablet by mouth every 8 hours as needed for nausea/vomiting. oschxi-bljtueuf-kbyefxa (CREON 3) 3,000-9,500- 15,000 unit delayed release capsule Take 1 capsule by mouth three times a day with meals. diphenhydrAMINE (BENADRYL) 25 mg capsule Take 50 mg by mouth at bedtime as needed. doxycycline (VIBRA-TABS) 100 mg tablet Take 1 tablet by mouth two times a day for 5 days. (Patient not taking: Reported on 10/18/2024) fluticasone-salmeterol (WIXELA INHUB) 500-50 mcg/dose dsdv Inhale 1 Puff as instructed two times a day. (Patient not taking: Reported on 10/03/2024) fluticasone-salmeterol (WIXELA INHUB) 250-50 mcg/dose inhaler Inhale 1 Puff as instructed two timesa day. (Patient not taking: Reported on 10/03/2024) Mesalamine (LIALDA) 1.2 gram EC tablet Take 1,200 mg by mouth once daily. (Patient not taking: Reported on 10/13/2024) No current facility-administered medications for this visit. Review of Systems Objective BP 118/78 Pulse 79 Temp 37.1 C (98.8 F) (Temporal) Wt 97.2 kg (214 lb 4.6 oz) LMP 08/10/2006 SpO2 98% BMI 39.94 kg/m Physical Exam Constitutional: Appearance: Normal appearance. HENT: Head: Normocephalic. Comments: Tender over maxillary sinuses Right Ear: Tympanic membrane, ear canal and external ear normal. Left Ear: Tympanic membrane, ear canal and external ear normal. Eyes: Conjunctiva/sclera: Conjunctivae normal. Cardiovascular: Rate and Rhythm: Normal rate and regular rhythm. Heart sounds: Normal heart sounds. Pulmonary: Effort: Pulmonary effort is normal. Breath sounds: Normal breath sounds. Comments: Frequent cough, dry Musculoskeletal: Right lower leg: No edema. Left lower leg: No edema. Skin: General: Skin is warm and dry. Neurological: General: No focal deficit present. Mental Status: She is alert and oriented to person, place, and time. Psychiatric: Mood and Affect: Mood normal. Behavior: Behavior normal. Thought Content: Thought content normal. Judgment: Judgment normal. Assessment and Plan # Non-recurrent acute suppurative otitis media of both ears without spontaneous rupture of tympanicmembranes (H66.003) # Dysfunction of both eustachian tubes (H69.93) # Acute non-recurrent sinusitis, unspecified location (J01.90) - Bilateral ear pain with eustachian tube dysfunction and sinusitis. - Ears are not erythematous or bulging; no signs of tympanic membrane rupture. - Initiated prednisone taper (40 mg for 3 days, 30 mg for 3 days, 20 mg for 3 days, 10 mg for 3 days) to reduce inflammation. - Using raxe-wyd-fseytgf saline nasal spray; recommended AYR gel for better adherence and efficacy. - Prescribed Omnicef 300 mg BID for 10 days as a precautionary measure. - Monitor for improvement; follow-up if symptoms persist. # Chronic cough (R05.3) - Persistent dry cough for 2-3 months, likely multifactorial: asthma, post-nasal drip, and reflux. - No wheezing or crackles on auscultation; SpO2 at 98%. - Advised to resume Wixela if bronchospasm symptoms occur. - Monitor for improvement with current treatment; consider pulmonology referral if no improvement. # Gastroesophageal reflux disease, unspecified whether esophagitis present (K21.9) # LPRD (laryngopharyngeal reflux disease) (K21.9) - Refilled pantoprazole; advised to take twice daily if breakthrough reflux occurs. - Discussed potential contribution of reflux to chronic cough and sore throat. - Monitor for symptoms; follow-up if no improvement. # Former cigarette smoker (Z87.891) - Quit smoking approximately 3-4 months ago; previously smoked half a pack per day. - Educated on potential for increased cough post-cessation due to ciliary regrowth. - Encouraged to maintain smoking cessation. Silverio Haley MD documented in [place] encounterJames [place]ille [address]-03-2025 NoteHNO ID: [id number] Author: MINI DUENAS APRN.CLASSROOM TEACHER Service: ? Author Type: Nurse Practitioner Type: Progress Notes Filed: 10/17/2024 11:14 Note Text: [facility] NOTE Subjective Sally Vargas is a 44 year old year old who presents to [facility] today with complaint of cough and congestion worsening with now bilateral ear pain x >10. Denies headaches, fever, sore throat, shortness of breath, chest pains, Nausea, vomiting, changes in bowel or bladder or skin rashes. Taking Dayquil, Nyquil. Aside from symptoms as described above, patient has no other complaints at this time. HPI: see above Review of Systems Constitutional: Negative for chills, fatigue and fever. HENT: Positive for congestion, ear pain, postnasal drip and sinus pressure. Negative for sore throat and trouble swallowing. Eyes: Negative for pain, discharge, redness and itching. Respiratory: Positive for cough. Negative for chest tightness, shortness of breath and wheezing. Cardiovascular: Negative for chest pain, palpitations and leg swelling. Gastrointestinal: Negative for abdominal pain, diarrhea, nausea and vomiting. Genitourinary: Negative for dysuria, frequency and urgency. Musculoskeletal: Negative for myalgias. Skin: Negative for rash. Neurological: Negative for headaches. Hematological: Negative for adenopathy. ALLERGIES Allergen Reactions Aspirin Unknown Penicillins Rash Cephalexin Itching Chlorhexidine Rash Skin rash Ciprofloxacin Rash Unclear if the pruritic areas of rash were related to medication or not, no prior use Iodinated Contrast * Anaphylaxis Toradol [Ketorolac] Rash Asa [Salicylates] Other: See Comments ulcers Contrast Dye [Iodin* Shortness of Breath Dicyclomine Hives Ibuprofen GI Upset Current Outpatient Medications on File Prior to Visit Medication Sig gabapentin (NEURONTIN) 400 mg capsule Take 1 capsule by mouth every 12 hours for 90 days. traZODone (DESYREL) 50 mg tablet Take 1 tablet by mouth daily at bedtime. ARIPiprazole (ABILIFY) 10 mg tablet Take 1 tablet by mouth once daily. LORazepam (ATIVAN) 0.5 mg Take 1 tablet by mouth once daily as needed for up to 30 days. escitalopram oxalate (LEXAPRO) 20 mg tablet Take 1 tablet by mouth once daily. etodolac (LODINE) 400 mg tablet Take 1 tablet by mouth two times a day as needed. albuterol HFA (VENTOLIN HFA) 90 mcg/actuation inhaler Inhale 2 Puffs as instructed every 4 hours as needed for wheezing/shortness of breath. Cholecalciferol, Vitamin D3, 50 mcg (2,000 unit) cap Take 1 capsule by mouth once daily. SUMAtriptan (IMITREX STATDOSE PEN) 6 mg/0.5 mL pen Inject 0.5 mL subcutaneously as needed for migraine headache (see administration instructions). May repeat dose after 1 hour if needed. Maximum daily dose is 12 mg per day. pantoprazole DR (PROTONIX) 40 mg tablet Take 1 tablet by mouth daily before breakfast. Take on empty stomach, 1/2 hr before meal. promethazine (PHENERGAN) 25 mg tablet Take 1 tablet by mouth every 8 hours as needed for nausea/vomiting. nxifkr-xyqxslej-zzymsmd (CREON 3) 3,000-9,500- 15,000 unit delayed release capsule Take 1 capsule by mouth three times a day with meals. diphenhydrAMINE (BENADRYL) 25 mg capsule Take 50 mg by mouth at bedtime as needed. fluticasone-salmeterol (WIXELA INHUB) 500-50 mcg/dose dsdv Inhale 1 Puff as instructed two times a day. (Patient not taking: Reported on 10/03/2024) fluticasone-salmeterol (WIXELA INHUB) 250-50 mcg/dose inhaler Inhale 1 Puff as instructed two times a day. (Patient not taking: Reported on 10/03/2024) Mesalamine (LIALDA) 1.2 gram EC tablet Take 1,200 mg by mouth once daily. (Patient not taking: Reported on 10/13/2024) No current facility-administered medications on file prior to visit. ACTIVE PROBLEM LIST Family history of diabetes mellitus Calculus of Kidney Allergic rhinitis, cause unspecified Migraine Without Aura Cigarette Smoker Benign Liver Cyst Ovarian Cyst Generalized Anxiety Disorder Reactive Depression Adjustment Insomnia Bilateral Low Back Pain Without Sciatica Pain [...] and Vomiting Chronic Pain Syndrome Liver Cyst Pain of Multiple Sites Functional Abdominal Pain Syndrome Functional Vomiting Former Smoker Open Wound of Left Breast Obesity, Class II, Bmi 35-39.9 Acute Asthmatic Bronchitis Social History Tobacco Use Smoking status: Former Current packs/day: 0.00 Average packs/day: 0.5 packs/day for 3.0 years (1.5 ttl pk-yrs) Types: Cigarettes Start date: 01/12/2014 Quit date: (more content not included)...[facility]02[facility] History of Present illness Narrative* Mini Duenas, ASHLYN.CLASSROOM TEACHER - 10/17/2024 11:11 AM EST Images from the original note were not included. [facility] NOTE Subjective Sally Vargas is a 44 year old year old who presents to [facility] today with complaint of cough and congestion worsening with now bilateral ear pain x >10. Denies headaches, fever, sore throat, shortness of breath, chest pains, Nausea, vomiting, changes in bowel or bladder or skin rashes. Taking Dayquil, Nyquil. Aside from symptoms as described above, patient has no other complaints at this time. HPI: see above Review of Systems Constitutional: Negative for chills, fatigue and fever. HENT: Positive for congestion, ear pain, postnasal drip and sinus pressure. Negative for sore throat and trouble swallowing. Eyes: Negative for pain, discharge, redness and itching. Respiratory: Positive for cough. Negative for chest tightness, shortness of breath and wheezing. Cardiovascular: Negative for chest pain, palpitations and leg swelling. Gastrointestinal: Negative for abdominal pain, diarrhea, nausea and vomiting. Genitourinary: Negative for dysuria, frequency and urgency. Musculoskeletal: Negative for myalgias. Skin: Negative for rash. Neurological: Negative for headaches. Hematological: Negative for adenopathy. ALLERGIES Allergen Reactions Aspirin Unknown Penicillins Rash Cephalexin Itching Chlorhexidine Rash Skin rash Ciprofloxacin Rash Unclear if the pruritic areas of rash were related to medication or not, no prior use Iodinated Contrast * Anaphylaxis Toradol [Ketorolac] Rash Asa [Salicylates] Other: See Comments ulcers Contrast Dye [Iodin* Shortness of Breath Dicyclomine Hives Ibuprofen GI Upset Current Outpatient Medications on File Prior to Visit Medication Sig gabapentin (NEURONTIN) 400 mg capsule Take 1 capsule by mouth every 12 hours for 90 days. traZODone (DESYREL) 50 mg tablet Take 1 tablet by mouth daily at bedtime. ARIPiprazole (ABILIFY) 10 mg tablet Take 1 tablet by mouth once daily. LORazepam (ATIVAN) 0.5 mg Take 1 tablet by mouth once daily as needed for up to 30 days. escitalopram oxalate (LEXAPRO) 20 mg tablet Take 1 tablet by mouth once daily. etodolac (LODINE) 400 mg tablet Take 1 tablet by mouth two times a day as needed. albuterol HFA (VENTOLIN HFA) 90 mcg/actuation inhaler Inhale 2 Puffs as instructed every 4 hours asneeded for wheezing/shortness of breath. Cholecalciferol, Vitamin D3, 50 mcg (2,000 unit) cap Take 1 capsule by mouth once daily. SUMAtriptan (IMITREX STATDOSE PEN) 6 mg/0.5 mL pen Inject 0.5 mL subcutaneously as needed for migraine headache (see administration instructions). May repeat dose after 1 hour if needed. Maximum daily dose is 12 mg per day. pantoprazole DR (PROTONIX) 40 mg tablet Take 1 tablet by mouth daily before breakfast. Take on empty stomach, 1/2 hr before meal. promethazine (PHENERGAN) 25 mg tablet Take 1 tablet by mouth every 8 hours as needed for nausea/vomiting. rxknii-kauoxjfs-ugoxvao (CREON 3) 3,000-9,500- 15,000 unit delayed release capsule Take 1 capsule by mouth three times a day with meals. diphenhydrAMINE (BENADRYL) 25 mg capsule Take 50 mg by mouth at bedtime as needed. fluticasone-salmeterol (WIXELA INHUB) 500-50 mcg/dose dsdv Inhale 1 Puff as instructed two times a day. (Patient not taking: Reported on 10/03/2024) fluticasone-salmeterol (WIXELA INHUB) 250-50 mcg/dose inhaler Inhale 1 Puff as instructed two timesa day. (Patient not taking: Reported on 10/03/2024) Mesalamine (LIALDA) 1.2 gram EC tablet Take 1,200 mg by mouth once daily. (Patient not taking: Reported on 10/13/2024) No current facility-administered medications on file prior to visit. ACTIVE PROBLEM LIST Family history of diabetes mellitus Calculus of Kidney Allergic rhinitis, cause unspecified Migraine Without Aura Cigarette Smoker Benign Liver Cyst Ovarian Cyst Generalized Anxiety Disorder Reactive Depression Adjustment Insomnia Bilateral Low Back Pain Without Sciatica Pain [...] and Vomiting Chronic Pain Syndrome Liver Cyst Pain of Multiple Sites Functional Abdominal Pain Syndrome Functional Vomiting Former Smoker Open Wound of Left Breast Obesity, Class II, Bmi 35-39.9 Acute Asthmatic Bronchitis Social History Tobacco Use Smoking status: Former Current packs/day: 0.00 Average packs/day: 0.5 packs/day for 3.0 years (1.5 ttl pk-yrs) Types: Cigarettes Start date: 01/12/2014 Quit date: 01/12/2017 Years since quittin.7 Smokeless tobacco: Never Tobacco comments: 1/2 pack per day Vaping Use Vaping status: Never Used Substance Use Topics Alcohol use: Yes Comment: Occasional Drug use: Never Objective BP 124/78 Pulse 90 Temp 36.4 C (97.6 F) Resp 16 Wt 93.4 kg (205 lb 14.6 oz) LMP 08/10/2006 SpO2 99% BMI 38.38 kg/m Physical Exam Vitals and nursing note reviewed. Constitutional: General: She is not in acute distress. Appearance: Normal appearance. She is not ill-appearing or toxic-appearing. HENT: Head: Normocephalic and atraumatic. Right Ear: Ear canal and external ear normal. Tympanic membrane is erythematous and bulging. Left Ear: Ear canal and external ear normal. Tympanic membrane is erythematous and bulging. Ears: Comments: TM's bulging with cloudy yellow fluid Nose: Congestion (mild mucosal edema) and rhinorrhea (clear fluid in nares) present. Right Turbinates: Swollen. Left Turbinates: Swollen. Right Sinus: Maxillary sinus tenderness and frontal sinus tenderness present. Left Sinus: Maxillary sinus tenderness and frontal sinus tenderness present. Mouth/Throat: Mouth: Mucous membranes are moist. Pharynx: Oropharynx is clear. Posterior oropharyngeal erythema (mild with clear fluid) present. No pharyngeal swelling or oropharyngeal exudate. Comments: Cloudy yellow mucous in posterior oropharynx Eyes: Extraocular Movements: Extraocular movements intact. Conjunctiva/sclera: Conjunctivae normal. Pupils: Pupils are equal, round, and reactive to light. Cardiovascular: Rate and Rhythm: Normal rate and regular rhythm. Pulses: Normal pulses. Heart sounds: Normal heart sounds. Pulmonary: Effort: Pulmonary effort is normal. Breath sounds: Normal breath sounds. No wheezing or rhonchi. Abdominal: General: Bowel sounds are normal. Palpations: Abdomen is soft. Musculoskeletal: Cervical back: Normal range of motion and neck supple. No tenderness. Lymphadenopathy: Cervical: No cervical adenopathy. Neurological: Mental Status: She is alert. Assessment/Plan 1. Acute suppurative otitis media of both ears without spontaneous rupture of tympanic membranes, recurrence not specified - doxycycline (VIBRA-TABS) 100 mg tablet; Take 1 tablet by mouth two times a day for 5 days. Dispense: 10 tablet; Refill: 0 2. Bacterial sinusitis -Saline and Flonase OTC BID to decrease nasal mucous and swelling- education given Patient advised to drink fluids, get rest and take all meds as prescribed. Patient given educational materials - see instructions. Discussed use, benefit, and side effects ofprescribed medications. All questions answered. Patient advised to follow up with PCP in one week, or sooner if symptoms worsen or persist. If symptoms become severe- GO TO ED. Patient verbalized understanding and agreeable with treatment plan. Mini Duenas APRN, CNP 10/17/2024 11:11 AM [facility] Instructions* Patient Instructions* Mini Duenas APRN.MANUELITO - 10/17/2024 11:08 AM EST EAR INFECTION, MIDDLE (Otitis Media) DESCRIPTION: Infection in the middle ear. This is not contagious from person to person, but the preceding respiratory infection causing it may be contagious. Involved is the middle-ear space where nerves and small bones connect to the eardrum on one side and the eustachian tube on the other side. Most common in infants and children age 3 months to 3 years. FREQUENT SIGNS AND SYMPTOMS: -Irritability. -Earache. -Feeling of fullness in the ear. -Hearing loss. -Fever. -Dizziness. -Discharge or leakage from the ear. -Diarrhea, vomiting (sometimes). -Pulling at the ear (small children). RISK INCREASE WITH: -Recent illness, such as a respiratory infection, that has lowered resistance. -Crowded or unsanitary living conditions. -Cold climate. -Change in altitude such as flying or driving up mountains. -Family history of ear infections. -Day care. -Smoking in household. PREVENTIVE MEASURES: -Bottle-feed or breast-feed infants in a sitting position with head up, never lying down. -Breast-feeding decreases chances of child having ear infections. -No smoking in household. -Wash bed linens, towels and heating pads regularly to prevent reinfection. TREATMENT: -Diagnosis is usually made by examination of the ear. Fluid from the ear may be cultured. -Treatment usually involves medication and supportive care to relieve pain. -Apply heat to the area around the ears to relieve pain. -Swimming should be avoided until infection clears. -Surgery to insert plastic tubes through the eardrum to drain pus or fluid from the middle ear (rare); or surgery to remove the adenoids. -If the eardrum is bulging additional treatment may be necessary. MEDICATIONS: -Use ear drops to relieve pain. You may use non-prescription drops or those prescribed for a previous infection. They will not cure the infection. -Use non-prescription drugs, such as acetaminophen, to reduce pain and fever. -Antibiotics may be prescribed, if the infection appears to be bacterial rather than viral. Finish the medication. The infection may remain active for several days after symptoms disappear. ACTIVITY: Rest in bed or reduce activity until fever and pain subside. REPORT: -The following occur during treatment: Fever. Severe headache. Earache that persists longer than 2 days. despite treatment. Swelling around the ear. Convulsions. Twitching of the face muscles. Dizziness documented [facility]Kn[facility] Telephone encounter Note * Telephone Encounter - Ivanna Torre RN - 10/17/2024 10:18 AM EST Patient calls to schedule an appointment to follow up on sore throat and sinus congestion. Patient declines all available appointments within [facility]. Patient to go to [facility] for evaluation. Ivanna Torre RN [facility]02-03[facility]25 Miscellaneous Notes* Telephone Encounter - Ivanna Torre RN - 10/17/2024 10:18 AM EST Patient calls to schedule an appointment to follow up on sore throat and sinus congestion. Patient declines all available appointments within [facility]. Patient to go to [facility] for evaluation. Ivanna Torre RN documented in [facility] encounterKn[facility]01-30-[facility]25 NoteHNO ID: [id number] Author: MAUREEN BARRAGAN MD Service: ? Author Type: Physician Type: Progress Notes Filed: 10/13/2024 11:38 Note Text: Patient presents with: Cough: Sore throat, AL x 2 weeks HPI: Feeling sore throat for a couple weeks. She became ill with URI symptoms 5 days ago. Positive symptoms: Cough, Sore throat, Sinus pressure, Nasal Congestion, Rhinorrhea, resolved Fever/Chills, Malaise, Fatigue, Negative symptoms: Shortness of breath, Vomiting, Diarrhea, pyrosis, acid brash, lingering Post nasal drainage, OTC: Nyquil, Dayquil MEDICATIONS: Current Outpatient Medications Medication Sig gabapentin (NEURONTIN) 400 mg capsule Take 1 capsule by mouth every 12 hours for 90 days. traZODone (DESYREL) 50 mg tablet Take 1 tablet by mouth daily at bedtime. ARIPiprazole (ABILIFY) 10 mg tablet Take 1 tablet by mouth once daily. LORazepam (ATIVAN) 0.5 mg Take 1 tablet by mouth once daily as needed for up to 30 days. escitalopram oxalate (LEXAPRO) 20 mg tablet Take 1 tablet by mouth once daily. etodolac (LODINE) 400 mg tablet Take 1 tablet by mouth two times a day as needed. albuterol HFA (VENTOLIN HFA) 90 mcg/actuation inhaler Inhale 2 Puffs as instructed every 4 hours as needed for wheezing/shortness of breath. Cholecalciferol, Vitamin D3, 50 mcg (2,000 unit) cap Take 1 capsule by mouth once daily. SUMAtriptan (IMITREX STATDOSE PEN) 6 mg/0.5 mL pen Inject 0.5 mL subcutaneously as needed for migraine headache (see administration instructions). May repeat dose after 1 hour if needed. Maximum daily dose is 12 mg per day. pantoprazole DR (PROTONIX) 40 mg tablet Take 1 tablet by mouth daily before breakfast. Take on empty stomach, 1/2 hr before meal. promethazine (PHENERGAN) 25 mg tablet Take 1 tablet by mouth every 8 hours as needed for nausea/vomiting. zeaczw-nnlktfee-adutuxy (CREON 3) 3,000-9,500- 15,000 unit delayed release capsule Take 1 capsule by mouth three times a day with meals. diphenhydrAMINE (BENADRYL) 25 mg capsule Take 50 mg by mouth at bedtime as needed. fluticasone-salmeterol (WIXELA INHUB) 500-50 mcg/dose dsdv Inhale 1 Puff as instructed two times a day. (Patient not taking: Reported on 10/03/2024) fluticasone-salmeterol (WIXELA INHUB) 250-50 mcg/dose inhaler Inhale 1 Puff as instructed two times a day. (Patient not taking: Reported on 10/03/2024) Mesalamine (LIALDA) 1.2 gram EC tablet Take 1,200 mg by mouth once daily. (Patient not taking: Reported on 10/13/2024) No current facility-administered medications for this visit. ALLERGIES: ALLERGIES Allergen Reactions Aspirin Unknown Penicillins Rash Cephalexin Itching Chlorhexidine Rash Skin rash Ciprofloxacin Rash Unclear if the pruritic areas of rash were related to medication or not, no prior use Iodinated Contrast * Anaphylaxis Toradol [Ketorolac] Rash Asa [Salicylates] Other: See Comments ulcers Contrast Dye [Iodin* Shortness of Breath Dicyclomine Hives Ibuprofen GI Upset VITALS: BP 120/84 Pulse 73 Temp 36.5 ?C (97.7 ?F) Resp 19 Wt 92.7 kg (204 lb 5.9 oz) LMP 08/10/2006 SpO2 98% BMI 38.09 kg/m? PHYSICAL EXAM: GEN: mildly ill appearing HEENT: PERRL, EOMI, conjunctiva clear Ears: canals clear. TMs without erythema, bulge, or effusion Sinuses: Nose congested, non-tender frontal sinus, non-tender maxillary sinuses Throat: moist mucous membranes, mild erythema, no exudate, no asymmetry Neck: supple, no thyromegaly, no lymphadenopathy HEART: regular rate, regular rhythm, no murmurs LUNGS: clear to auscultation, no wheezes or crackles, no increased WOB ASSESSMENT/PLAN: 1. Sore throat - ICD9: 462, ICD10: J02.9 (primary diagnosis) - STREP A MOLECULAR (POC) - negative. No clear history of postnasal drainage or reflux inducing sore throat. Declines testing for mononucleosis. Treat with as needed analgesia, lozenges, and gargles. 2. Influenza-like illness - ICD9: 487.1, ICD10: J11.1 - suspect viral URI 6 days. She is beyond the therapeutic window for antiviral treatment and declines testing. - Discussed supportive care treatment with rest, cold medicine, and analgesia. Maureen aBrragan, [facility]01-30-2025 History of Present illness Narrative* Maureen Barragan MD - 10/13/2024 11:21 AM EST Patient presents with: Cough: Sore throat, AL x 2 weeks HPI: Feeling sore throat for a couple weeks. She became ill with URI symptoms 5 days ago. Positive symptoms: Cough, Sore throat, Sinus pressure, Nasal Congestion, Rhinorrhea, resolved Fever/Chills, Malaise, Fatigue, Negative symptoms: Shortness of breath, Vomiting, Diarrhea, pyrosis, acid brash, lingering Post nasal drainage, OTC: Nyquil, Dayquil MEDICATIONS: Current Outpatient Medications Medication Sig gabapentin (NEURONTIN) 400 mg capsule Take 1 capsule by mouth every 12 hours for 90 days. traZODone (DESYREL) 50 mg tablet Take 1 tablet by mouth daily at bedtime. ARIPiprazole (ABILIFY) 10 mg tablet Take 1 tablet by mouth once daily. LORazepam (ATIVAN) 0.5 mg Take 1 tablet by mouth once daily as needed for up to 30 days. escitalopram oxalate (LEXAPRO) 20 mg tablet Take 1 tablet by mouth once daily. etodolac (LODINE) 400 mg tablet Take 1 tablet by mouth two times a day as needed. albuterol HFA (VENTOLIN HFA) 90 mcg/actuation inhaler Inhale 2 Puffs as instructed every 4 hours asneeded for wheezing/shortness of breath. Cholecalciferol, Vitamin D3, 50 mcg (2,000 unit) cap Take 1 capsule by mouth once daily. SUMAtriptan (IMITREX STATDOSE PEN) 6 mg/0.5 mL pen Inject 0.5 mL subcutaneously as needed for migraine headache (see administration instructions). May repeat dose after 1 hour if needed. Maximum daily dose is 12 mg per day. pantoprazole DR (PROTONIX) 40 mg tablet Take 1 tablet by mouth daily before breakfast. Take on empty stomach, 1/2 hr before meal. promethazine (PHENERGAN) 25 mg tablet Take 1 tablet by mouth every 8 hours as needed for nausea/vomiting. dwgxuq-ydgezjvj-ttrudmy (CREON 3) 3,000-9,500- 15,000 unit delayed release capsule Take 1 capsule by mouth three times a day with meals. diphenhydrAMINE (BENADRYL) 25 mg capsule Take 50 mg by mouth at bedtime as needed. fluticasone-salmeterol (WIXELA INHUB) 500-50 mcg/dose dsdv Inhale 1 Puff as instructed two times a day. (Patient not taking: Reported on 10/03/2024) fluticasone-salmeterol (WIXELA INHUB) 250-50 mcg/dose inhaler Inhale 1 Puff as instructed two timesa day. (Patient not taking: Reported on 10/03/2024) Mesalamine (LIALDA) 1.2 gram EC tablet Take 1,200 mg by mouth once daily. (Patient not taking: Reported on 10/13/2024) No current facility-administered medications for this visit. ALLERGIES: ALLERGIES Allergen Reactions Aspirin Unknown Penicillins Rash Cephalexin Itching Chlorhexidine Rash Skin rash Ciprofloxacin Rash Unclear if the pruritic areas of rash were related to medication or not, no prior use Iodinated Contrast * Anaphylaxis Toradol [Ketorolac] Rash Asa [Salicylates] Other: See Comments ulcers Contrast Dye [Iodin* Shortness of Breath Dicyclomine Hives Ibuprofen GI Upset VITALS: BP 120/84 Pulse 73 Temp 36.5 C (97.7 F) Resp 19 Wt 92.7 kg (204 lb 5.9 oz) LMP 08/10/2006 SpO2 98% BMI 38.09 kg/m PHYSICAL EXAM: GEN: mildly ill appearing HEENT: PERRL, EOMI, conjunctiva clear Ears: canals clear. TMs without erythema, bulge, or effusion Sinuses: Nose congested, non-tender frontal sinus, non-tender maxillary sinuses Throat: moist mucous membranes, mild erythema, no exudate, no asymmetry Neck: supple, no thyromegaly, no lymphadenopathy HEART: regular rate, regular rhythm, no murmurs LUNGS: clear to auscultation, no wheezes or crackles, no increased WOB ASSESSMENT/PLAN: 1. Sore throat - ICD9: 462, ICD10: J02.9 (primary diagnosis) - STREP A MOLECULAR (POC) - negative. No clear history of postnasal drainage or reflux inducing sore throat. Declines testing for mononucleosis. Treat with as needed analgesia, lozenges, and gargles. 2. Influenza-like illness - ICD9: 487.1, ICD10: J11.1 - suspect viral URI 6 days. She is beyond the therapeutic window for antiviral treatment and declines testing. - Discussed supportive care treatment with rest, cold medicine, and analgesia. Maureen Barragan MD documented [facility]Kn[facility]01-[facility]25 Instructions* Patient Instructions* Silverio Haley MD - 10/03/2024 10:59 AM EST - Resume taking Gabapentin 400 mg twice daily for pain management; prescription sent to [facility] in [place]. - Resume taking Trazodone as previously prescribed for sleep; prescription sent to [facility] in [place]. - Resume taking Abilify 10 mg once daily in the morning for depression; prescription sent to [facility]. - Resume taking Escitalopram 20 mg once daily for depression; prescription sent to [facility] in [place]. - Resume taking Lorazepam as needed for anxiety; prescription sent to [facility] in [place]. Intermittent use as discussed. - Start taking Lodine 400 mg twice daily for inflammation; prescription sent to [facility] in [place]. - Schedule an echocardiogram to evaluate the pericardial effusion and shortness of breath. - Schedule an appointment with a electronic musical instrument repairer for asthma follow-up. - Increase water intake to prevent kidney stones. - Consider gentle stretching exercises and yoga to help with back pain. - Monitor your weight and consider portion control and reducing high-calorie drinks like soda and sweetened teas. documented in this encounterKn[facility]01-[facility]-2025 NoteHNO ID: [id number] Author: SILVERIO HALEY MD Service: ? Author Type: Physician Type: Progress Notes Filed: 10/03/2024 11:01 Note Text: This note was created using [employer]. Subjective Sally Vargas is a 44 year old female. Patient presents with: ED Follow-up: [facility] ED follow up 09/24/2024 for left flank pain SUBJECTIVE: Sally Vargas is a 44 year old year old lady here today for ER follow up appointment for review of medical conditions. Sally Vargas is a 44-year-old female with a history of asthma, anxiety, and depression, presenting for evaluation of persistent left-sided lower back pain, dyspnea, and chest tightness. Sally reports persistent left-sided lower back pain that began in July. The pain is constant, worsens with movement, and is particularly severe when standing or changing positions in bed. She describes the pain as a tight sensation in the muscles and denies any known trauma or specific incident that may have caused the pain. She has tried Tylenol and multiple muscle relaxants, including Flexeril, tizanidine, and baclofen, without relief. She also reports that heat provides temporary relief. She has a history of lumbar arthritis and bone spurs, but this pain is new and different from previous episodes. She has not tried physical therapy and is reluctant to do so. Sally also reports dyspnea and chest tightness that began approximately one month ago. These symptoms are exacerbated by walking and have been persistent since onset. She denies any recent acute illnesses, such as cough, colds, fevers, or chills. She has a history of a sinus infection in September, which was treated with doxycycline, and a cough in July. She has not yet seen a electronic musical instrument repairer for asthma follow-up. Additionally, Sally reports severe fatigue and low energy levels over the past month, with difficulty sleeping. She estimates she is only getting 2-3 hours of sleep per night, with frequent awakenings. She denies any specific factors keeping her awake and describes her house as quiet. She has tried background noise and breathing exercises without improvement. She was previously on multiple medications, including aripiprazole, lorazepam, gabapentin, trazodone, and escitalopram, but has been off these medications since May due to a lapse in psychiatric care. She reports a recurrence of depression since discontinuing these medications. PAST MEDICAL HISTORY Diagnosis Date Allergic rhinitis, cause unspecified 05/17/2008spring and summer Benign liver cyst 05/24/2010 CT scan at [facility] 11/2009 and 04/2010 showe 4 mm increase in size. No pain. No elevated LFTs on 03/11/2010. Calculus of kidney 05/17/[address] Nicolas: Hospitalized age 20, and again later -- no procedures so far ([facility], [facility], [address] [facility]) Cancer (HCC) COVID-19 virus infection 10/07/202109/2021 Diverticulosis Dysmenorrhea Hemorrhoids History of blood transfusion Impaired fasting glucose 05/17/2008 Sugar 104 fasting, 04/21 Intractable nausea and vomiting 05/25/2020 Marijuana use 07/10/2020 ER visit 07/06/2020, [place] [facility] 05/17/2008 Has used imitrex with good response; Keeps Vicodin on hand when needed; Ovarian cyst 07/15/2012 Pancreatitis Smoker 05/17/2008 Started age 26, 1/2 a PPD Current Outpatient Medications Medication Sig albuterol HFA (VENTOLIN HFA) 90 mcg/actuation inhaler Inhale 2 Puffs as instructed every 4 hours as needed for wheezing/shortness of breath. Cholecalciferol, Vitamin D3, 50 mcg (2,000 unit) cap Take 1 capsule by mouth once daily. SUMAtriptan (IMITREX STATDOSE PEN) 6 mg/0.5 mL pen Inject 0.5 mL subcutaneously as needed for migraine headache (see administration instructions). May repeat dose after 1 hour if needed. Maximum daily dose is 12 mg per day. pantoprazole DR (PROTONIX) 40 mg tablet Take 1 tablet by mouth daily before breakfast. Take on empty stomach, 1/2 hr before meal. ARIPiprazole (ABILIFY) 10 mg tablet Take 10 mg by mouth once daily. LORazepam (ATIVAN) 0.5 mg Take 0.5 mg by mouth once daily as needed. promethazine (PHENERGAN) 25 mg tablet Take 1 tablet by mouth every 8 hours as needed for nausea/vomiting. gpoghr-auqpffna-ubyasyn (CREON 3) 3,000-9,500- 15,000 unit delayed release capsule Take 1 capsule by mouth three times a day with meals. gabapentin (NEURONTIN) 400 mg capsule Take 1 capsule by mouth every 12 hours. diphenhydrAMINE (BENADRYL) 25 mg capsule Take 50 mg by mouth at bedtime as needed. Anpowkkxfooriul-Rttuscyjv-IJ (BROMFED DM) 2-30-10 mg/5 mL syrup Take 5 mL by mouth four times a day as needed. (Patient not taking: Reported on 10/03/2024) cyclobenzaprine (FLEXERIL) 10 mg tablet Take 1 tablet by mouth three times a day as needed. (Patient not taking: Reported on 10/03/2024) fluticasone-salmeterol (WIXELA INHUB) 500-50 mcg/dose dsdv Inhale 1 Puff as instructed two times a day. (Patien (more content not included)...[facility]01-20-2025 History of Present illness Narrative* Silverio Haley MD - 10/03/2024 10:16 AM EST Images from the original note were not included. This note was created using [employer]. Subjective Sally Vargas is a 44 year old female. Patient presents with: ED Follow-up: [facility] follow up 09/24/2024 for left flank pain SUBJECTIVE: Sally Vargas is a 44 year old year old lady here today for ER follow up appointment for reviewof medical conditions. Sally Vargas is a 44-year-old female with a history of asthma, anxiety, and depression, presenting for evaluation of persistent left-sided lower back pain, dyspnea, and chest tightness. Sally reports persistent left-sided lower back pain that began in July. The pain is constant,worsens with movement, and is particularly severe when standing or changing positions in bed. She describes the pain as a tight sensation in the muscles and denies any known trauma or specific incident that may have caused the pain. She has tried Tylenol and multiple muscle relaxants, including Flexeril, tizanidine, and baclofen, without relief. She also reports that heat provides temporary relief. She has a history of lumbar arthritis and bone spurs, but this pain is new and different from previous episodes. She has not tried physical therapy and is reluctant to do so. Sally also reports dyspnea and chest tightness that began approximately one month ago. These symptoms are exacerbated by walking and have been persistent since onset. She denies any recent acute illnesses, such as cough, colds, fevers, or chills. She has a history of a sinus infection in September,which was treated with doxycycline, and a cough in July. She has not yet seen a electronic musical instrument repairer for asthma follow-up. Additionally, Sally reports severe fatigue and low energy levels over the past month, with difficulty sleeping. She estimates she is only getting 2-3 hours of sleep per night, with frequent awakenings. She denies any specific factors keeping her awake and describes her house as quiet. She has tried background noise and breathing exercises without improvement. She was previously on multiple medications, including aripiprazole, lorazepam, gabapentin, trazodone, and escitalopram, but has been off these medications since May due to a lapse in psychiatric care. She reports a recurrence of depression since discontinuing these medications. PAST MEDICAL HISTORY Diagnosis Date Allergic rhinitis, cause unspecified 05/17/2008 Spring and summer Benign liver cyst 05/24/2010 CT scan at [facility] 11/2009 and 04/2010 showe 4 mm increase in size. No pain. No elevated LFTs on 03/11/2010. Calculus of kidney 05/17/[address] Nicolas: Hospitalized age 20, and again later -- no procedures so far ([facility], [address] [facility]) Cancer (HCC) COVID-19 virus infection 10/07/202109/2021 Diverticulosis Dysmenorrhea Hemorrhoids History of blood transfusion Impaired fasting glucose 05/17/2008 Sugar 104 fasting, 04/21 Intractable nausea and vomiting 05/25/2020 Marijuana use 07/10/2020 ER visit 07/06/2020, [place] MIGRAINE 05/17/2008 Has used imitrex with good response; Keeps Vicodin on hand when needed; Ovarian cyst 07/15/2012 Pancreatitis Smoker 05/17/2008 Started age 26, 1/2 a PPD Current Outpatient Medications Medication Sig albuterol HFA (VENTOLIN HFA) 90 mcg/actuation inhaler Inhale 2 Puffs as instructed every 4 hours asneeded for wheezing/shortness of breath. Cholecalciferol, Vitamin D3, 50 mcg (2,000 unit) cap Take 1 capsule by mouth once daily. SUMAtriptan (IMITREX STATDOSE PEN) 6 mg/0.5 mL pen Inject 0.5 mL subcutaneously as needed for migraine headache (see administration instructions). May repeat dose after 1 hour if needed. Maximum daily dose is 12 mg per day. pantoprazole DR (PROTONIX) 40 mg tablet Take 1 tablet by mouth daily before breakfast. Take on empty stomach, 1/2 hr before meal. ARIPiprazole (ABILIFY) 10 mg tablet Take 10 mg by mouth once daily. LORazepam (ATIVAN) 0.5 mg Take 0.5 mg by mouth once daily as needed. promethazine (PHENERGAN) 25 mg tablet Take 1 tablet by mouth every 8 hours as needed for nausea/vomiting. dzpgva-mjzxvsgh-lhhxhlp (CREON 3) 3,000-9,500- 15,000 unit delayed release capsule Take 1 capsule by mouth three times a day with meals. gabapentin (NEURONTIN) 400 mg capsule Take 1 capsule by mouth every 12 hours. diphenhydrAMINE (BENADRYL) 25 mg capsule Take 50 mg by mouth at bedtime as needed. Uxwsmtypefwtyfw-Vbfnkgwsm-DC (BROMFED DM) 2-30-10 mg/5 mL syrup Take 5 mL by mouth four times a dayas needed. (Patient not taking: Reported on 10/03/2024) cyclobenzaprine (FLEXERIL) 10 mg tablet Take 1 tablet by mouth three times a day as needed. (Patient not taking: Reported on 10/03/2024) fluticasone-salmeterol (WIXELA INHUB) 500-50 mcg/dose dsdv Inhale 1 Puff as instructed two times a day. (Patient not taking: Reported on 10/03/2024) fluticasone-salmeterol (WIXELA INHUB) 250-50 mcg/dose inhaler Inhale 1 Puff as instructed two timesa day. (Patient not taking: Reported on 10/03/2024) Mesalamine (LIALDA) 1.2 gram EC tablet Take 1,200 mg by mouth once daily. traZODone (DESYREL) 50 mg tablet Take 50 mg by mouth daily at bedtime. (Patient not taking: Reported on 10/03/2024) No current facility-administered medications for this visit. Review of Systems Objective BP 118/74 Pulse 64 Temp 37 C (98.6 F) Resp 16 Wt 92.3 kg (203 lb 7.8 oz) LMP 08/10/2006 SpO2 100% BMI 37.93 kg/m Physical Exam Constitutional: Appearance: Normal appearance. HENT: Head: Normocephalic. Eyes: Conjunctiva/sclera: Conjunctivae normal. Cardiovascular: Rate and Rhythm: Normal rate and regular rhythm. Heart sounds: Normal heart sounds. Pulmonary: Effort: Pulmonary effort is normal. Breath sounds: Normal breath sounds. Musculoskeletal: Back: Comments: Pain with turning Skin: General: Skin is warm and dry. Neurological: General: No focal deficit present. Mental Status: She is alert and oriented to person, place, and time. Psychiatric: Mood and Affect: Mood normal. Behavior: Behavior normal. Thought Content: Thought content normal. Judgment: Judgment normal. Assessment and Plan # Back strain, initial encounter (S39.012A) # Muscle spasm of back (M62.830) - Pain localized to the lower left back, exacerbated by movement and position changes; no relief from Tylenol or Flexeril. - Physical exam reveals tenderness and tightness in the lower rib cage area, consistent with musclespasm. - Previous imaging shows mild disc changes in the thoracic spine; no acute findings in the lower spine. - Initiated Elavil for chronic pain management. - Prescribed Lodine 400 mg BID for inflammation. - Advised use of heat therapy and gentle stretching exercises. - Discussed potential benefits of physical therapy, but patient declined. # Pericardial effusion (I31.39) # LARSON (dyspnea on exertion) (R06.09) - CT scan revealed a small pericardial effusion. - Dyspnea on exertion and chest tightness reported, onset approximately one month ago. - Ordered echocardiogram to evaluate the effusion and assess cardiac function. - Advised patient to follow up with pulmonology for asthma management. # Generalized anxiety disorder (F41.1) # Recurrent depressive disorder, current episode moderate (HCC) (F33.1) # Other insomnia (G47.09) - Anxiety and depression symptoms exacerbated by discontinuation of medications. - Insomnia with only 2-3 hours of sleep per night, contributing to fatigue and low energy. - Reinitiated medications: Abilify 10 mg daily, escitalopram 20 mg daily, gabapentin 400 mg BID, trazodone 50 mg at bedtime, lorazepam 0.5 mg prn. - Provided refills for medications and instructed patient to ensure pharmacy has correct refill information. - Patient to continue efforts to establish care with a new psychiatrist. I spent a total of 40 minutes on the date of the service which included preparing to see the patient, wxix-lq-krln patient care, completing clinical documentation, obtaining and/or reviewing separately obtained history, performing a medically appropriate examination, counseling and educating the pat ient/family/caregiver, ordering medications, tests, or procedures, independently interpreting results (not separately reported), and communicating results to the patient/family/caregiver. [facility] Patient Education 09/24/2024 12:58:20 Kidney Stone, Undescended (No Symptoms) Kidney Stone, Undescended, No Symptoms A kidney stone (nephrolithiasis) begins as tiny crystals that form inside the kidney where urine ismade. Most kidney stones enlarge to about 1/8 to 1/4 inch in size before leaving the kidney and moving toward the bladder. There are 4 types of kidney stones. Eighty percent are calcium stones mostlycalcium oxalate but also some with calcium phosphate. The other 3 types include uric acid stones, struvite stones (from a preceding infection), and rarely, cystine stones. When the stone breaks free and begins to move down the ureter (the narrow tube joining the kidney to the bladder) it often causes sharp back and side pain, often with nausea and vomiting. When the stone reaches the bladder, the pain stops. Once in your bladder, the kidney stone may pass through theurethra (urinary opening) while you are urinating (which may cause pain to start again). Or, it maybreak into such small fragments that you don t notice it passing. Your kidney stone is still inside the kidney. There is no way to predict how long it will be beforeit breaks free and causes any symptoms. Most stones will pass on their own within a few hours to a few days (sometimes longer). You may notice a red, pink, or brown color to your urine. This is normal while passing a kidney stone. A large stone may not pass on its own and may require special procedures to remove it. These procedures include lithotripsy, which uses ultrasound waves to break up thestone; ureteroscopy, which pushes a thin, basket-like instrument through the urethra and bladder and into the ureter to pull out the stone; and various types of direct surgery through the skin. Home care The following guidelines will help you care for yourself at home: Drink plenty of fluids. This increases urine flow and reduces the risk of further stone formation. Healthy adults (no heart/liver/kidney disease) who have had a kidney stone should drink 12, 8-ounce glasses of fluids per day. Most of this should be water. The goal is to produce 1.5 to 2 quarts of almost colorless urine per 24 hours. You should collect your urine in a container and then drain it through a strainer to collect any stones or pieces of stones. Take these to your healthcare provider to help identify your specific typeof stone to aid in future treatment and dietary changes. Try to stay as active as possible since this will help the stone pass. Don't stay in bed unless youhave pain that prevents you from getting up. If you develop pain, you may take ibuprofen or naproxen for pain, unless another medicine was prescribed. If you have chronic liver or kidney disease or ever had a stomach ulcer or GI bleeding, talk with your healthcare provider before using these medicines. Prevention Each year, there is a 5% to 10% chance that a new stone will form (50% chance over the next 5 to 7 years). The risk is higher if you have a family history of kidney stones or have certain chronic illnesses such as hypertension, obesity, or diabetes. However, there are lifestyle and dietary changes that you can make to reduce the risk of a recurrence. Most kidney stones are made of calcium. The following is advice for preventing a recurrence of calcium stones. If you don t know the type of stone you have, follow this advice until the cause of yourstone is determined. Things that help: The most important thing you can do is to drink plenty of fluids each day, as described above. Certain foods, such as wheat, rice, rye, barley and beans, contain phytate, a compound that may lower the risk of recurrence of any type of stone. Eat more fruits and vegetables (especially those high in potassium). Eat foods high in natural citrate like fruit and fruit juices (using low sugar). Low calcium contributes to the formation of calcium type kidney stones. Eat a normal calcium diet and speak with your doctor if you are taking calcium supplements. It may be detrimental to reduce your calcium intake. New research shows that eating calcium-rich and oxalate-rich foods together lowersyour risk of stones by binding the minerals in the stomach and intestines before they can reach thekidneys. Limit salt intake to 2 grams (1 teaspoon) per day. Use limited amounts when cooking, and don t add salt at the table. Processed and canned foods are usually high in salt. Spinach, rhubarb, peanuts, cashews and almonds, grapefruit and grapefruit juice are all high oxalate foods and should be reduced, or eaten with calcium rich foods. These foods include dairy, dark leafy greens, soy products, and calcium enriched foods. Reducing the amount of animal meat in your diet may lower your risk of uric acid stones. Don't have excess sugar (sucrose) and fructose (sweetener in many soft drinks) in your diet. If you take vitamin C as a supplement, do not take more than 1,000 milligrams (mg) per day. A dietitian or your healthcare provider can provide you with specific details about dietary changesto prevent kidney stone recurrence. Follow-up care Follow up with your healthcare provider, or as advised. Talk with your healthcare provider about urine and blood tests to find out the cause of your stone. If you had an X-ray, CT scan, or other diagnostic test, you will be notified of any findings that may affect your care. Call 911 Call 911 if you have any of these: Weakness, dizziness, or fainting When to seek medical advice Call your healthcare provider right away if any of the these occur: Severe sharp back or side pain Repeated vomiting or unable to keep down fluids Fever of 100.4 F (38 C) or higher, or as directed by your health care provider Blood (pink or red color) in your urine Foul smelling or cloudy urine Unable to pass urine for 8 hours or increasing bladder pressure [id number] [employer] [place] [id number]. All rights reserved. This information is not intended as a substitute for professional medical care. Always follow yourhealthcare professional's instructions. 09/24/2024 12:58:07 Flank Pain, Uncertain Cause Flank Pain, Uncertain Cause The flank is the area between your upper abdomen and your back. Pain there is often caused by a problem with your kidneys. It might be a kidney infection or a kidney stone. Other causes of flank paininclude spinal arthritis, a pinched nerve from a back injury, or a back muscle strain or spasm. The cause of your flank pain is not certain. You may need other tests. Home care Follow these tips when caring for yourself at home: You may use acetaminophen or ibuprofen to control pain, unless your health care provider prescribedanother medicine. If you have chronic liver or kidney disease, talk with your provider before taking these medicines. Also talk with your provider first if you ve ever had a stomach ulcer or GI bleeding. If the pain is coming from your muscles, you may get relief with ice or heat. During the first 2 days after the injury, put an ice pack on the painful area for 20 minutes every 2 to 4 hours. This will reduce swelling and pain. A hot shower, hot bath, or heating pad works well for a muscle spasm. You can start with ice, then switch to heat after 2 days. You might find that alternating ice and heatworks well. Use the method that feels the best to you. Follow-up care Follow up with your healthcare provider if your symptoms don t get better over the next few days. When to seek medical advice Call your healthcare provider right away if any of these happen: Repeated vomiting Fever of 100.4 F (38 C) or higher, or as directed by your health care provider Flank pain that gets worse Pain that spreads to the front of your belly (abdomen) Dizziness, weakness, or fainting Blood in your urine Burning feeling when you urinate or the need to urinate often Pain in one of your legs that gets worse Numbness or weakness in a leg [id number] [employer]. [address] [place] [address]28. All rights reserved. This information is not intended as a substitute for professional medical care. Always follow yourhealthcare professional's instructions. Follow Up Care 09/24/2024 10:27:38 With:SILVERIO HALEY Address: [address] [place] [id number] [employer] (1) When:2-4 days Comments:Schedule appointment as soon as possibleReturn to ED if symptoms worsenLimit activityIf nausea start with Pedialyte for 4 to 6 hours then brat diet then back to fullMay use Tylenol for pain and cyclobenzaprine for muscle spasm [facility] 01-11[facility]25 Emergency department Discharge summary Discharge Instructions Thank you for allowing [facility] to assist you with your healthcare needs. The following is importantdischarge information regarding your hospital visit. Diagnosis from Today's Visit Flank pain What to Do Next Instructions from Your Care Team No qualifying data available. Post Acute Orders No qualifying data available. You Need to Schedule the Following Appointments Follow Up with SILVERIO HALEY When:Within 2-4 days Where:[facility] [place], [place] [id number]- [employer] (1) Additional Information: Schedule appointment as soon as possible Return to ED if symptoms worsen Limit activity If nausea start with Pedialyte for 4 to 6 hours then brat diet then back to full May use Tylenol for pain and cyclobenzaprine for muscle spasm Allergies Advil Contrast dye Flagyl Motrin NSAIDS Toradol Toradol IV/IM aspirin fentaNYL penicillin Medications Please ask your primary doctor or pharmacist before taking any other medication not listed, including over the counter drugs, herbal medications, vitamins and or supplements as they may interact withyour home medications. What How Much When Instructions Last Dose New cyclobenzaprine (cyclobenzaprine 10 mg oral tablet) 1 tab(s) by mouth Three (3) times a day As needed for back spasm/ pain Printed Prescription Unchanged albuterol (albuterol MDI (90 mcg/ inh) CFC free inhalation aerosol) 1 puff(s) by inhalation Every 4 hours as needed for as needed for wheezing Unchanged ARIPiprazole (ARIPiprazole 10 mg oral tablet) 1 tab(s) by mouth Once a day Unchanged atorvastatin (atorvastatin 20 mg oral tablet) 1 tab(s) by mouth Once a day Unchanged cholecalciferol (cholecalciferol 125 mcg (5000 intl units) oral capsule) 1 cap by mouth Once a day Unchanged escitalopram (Lexapro 10 mg oral tablet) 1 tab(s) by mouth Once a day Unchanged gabapentin (gabapentin 400 mg oral capsule) 1 cap by mouth Three (3) times a day Unchanged montelukast (montelukast 10 mg oral tablet) 1 tab(s) by mouth Daily at bedtime Unchanged pantoprazole (Protonix 40 mg oral enteric coated tablet) 1 tab(s) by mouth Once a day Please take this list to your next doctor s visit. Bring all medications you take, including over the counter medications, herbals and other supplements with you to your doctor s visit. Patients and families are reminded to discard old lists and to update any records with all medication providers or retail pharmacies. Medication Leaflets cyclobenzaprine (gabriel pacheco) [place], Fexmid What is the most important information I should know about cyclobenzaprine? You should not use cyclobenzaprine if you have a thyroid disorder, heart block, congestive heart failure, a heart rhythm disorder, or you have recently had a heart attack. Do not use cyclobenzaprine if you have taken an MAO inhibitor in the past 14 days, such as isocarboxazid, linezolid, phenelzine, rasagiline, selegiline, or tranylcypromine. What is cyclobenzaprine? Cyclobenzaprine is a muscle relaxant. It works by blocking nerve impulses (or pain sensations) thatare sent to your brain. Cyclobenzaprine is used together with rest and physical therapy to relieve muscle spasms caused by painful conditions such as an injury. Cyclobenzaprine may also be used for purposes not listed in this medication guide. What should I discuss with my healthcare provider before taking cyclobenzaprine? You should not use cyclobenzaprine if you are allergic to it, or if you have: a thyroid disorder; heart block, heart rhythm disorder, congestive heart failure; or if you have recently had a heart attack. Cyclobenzaprine is not approved for use by anyone younger than 15 years old. Do not use cyclobenzaprine if you have taken an MAO inhibitor in the past 14 days. A dangerous druginteraction could occur. MAO inhibitors include isocarboxazid, linezolid, phenelzine, rasagiline, selegiline, and tranylcypromine. Some medicines can interact with cyclobenzaprine and cause a serious condition called serotonin syndrome. Be sure your doctor knows if you also take stimulant medicine, opioid medicine, herbal products, or medicine for depression, mental illness, Parkinson's disease, migraine headaches, serious infections, or prevention of nausea and vomiting. Ask your doctor before making any changes in how or when you take your medications. Tell your doctor if you have ever had: liver disease; glaucoma; enlarged prostate; or problems with urination. It is not known whether this medicine will harm an unborn baby. Tell your doctor if you are or plan to become . It may not be safe to breast-feed while using this medicine. Ask your doctor about any risk. Older adults may be more sensitive to the effects of this medicine. How should I take cyclobenzaprine? Follow all directions on your prescription label and read all medication guides or instruction sheets. Your doctor may occasionally change your dose. Use the medicine exactly as directed. Cyclobenzaprine is usually taken once daily for only 2 or 3 weeks. Follow your doctor's dosing instructions very carefully. Swallow the capsule whole and do not crush, chew, break, or open it. Take the medicine at the same time each day. Call your doctor if your symptoms do not improve after 3 weeks, or if they get worse. Store at room temperature away from moisture, heat, and light. What happens if I miss a dose? Take the medicine as soon as you can, but skip the missed dose if it is almost time for your next dose. Do not take two doses at one time. What happens if I overdose? Seek emergency medical attention or call the Poison Help line at . An overdose of cyclobenzaprine can be fatal. Overdose symptoms may include severe drowsiness, vomiting, fast heartbeats, tremors, agitation, or hallucinations. What should I avoid while taking cyclobenzaprine? Avoid driving or hazardous activity until you know how this medicine will affect you. Your reactions could be impaired. Avoid drinking alcohol. Dangerous side effects could occur. What are the possible side effects of cyclobenzaprine? Get emergency medical help if you have signs of an allergic reaction: hives; difficult breathing; swelling of your face, lips, tongue, or throat. Stop using cyclobenzaprine and call your doctor at once if you have: fast or irregular heartbeats; chest pain or pressure, pain spreading to your jaw or shoulder; or sudden numbness or weakness (especially on one side of the body), slurred speech, balance problems. Seek medical attention right away if you have symptoms of serotonin syndrome, such as: agitation, hallucinations, fever, sweating, shivering, fast heart rate, muscle stiffness, twitching, loss of coordination, nausea, vomiting, or diarrhea. Serious side effects may be more likely in older adults. Common side effects may include: drowsiness, tiredness; headache, dizziness; dry mouth; or upset stomach, nausea, constipation. This is not a complete list of side effects and others may occur. Call your doctor for medical advice about side effects. You may report side effects to FDA at 1-289-ELE-4243. What other drugs will affect cyclobenzaprine? Using cyclobenzaprine with other drugs that make you drowsy can worsen this effect. Ask your doctorbefore using opioid medication, a sleeping pill, a muscle relaxer, or medicine for anxiety or seizures. Tell your doctor about all your other medicines, especially: bupropion (Zyban, for smoking cessation); meperidine; tramadol; verapamil; cold or allergy medicine that contains an antihistamine (Benadryl and others); medicine to treat Parkinson's disease; medicine to treat excess stomach acid, stomach ulcer, motion sickness, or irritable bowel syndrome; medicine to treat overactive bladder; or bronchodilator asthma medication. This list is not complete. Other drugs may affect cyclobenzaprine, including prescription and qazn-lbj-ovvsycd medicines, vitamins, and herbal products. Not all possible drug interactions are listed here. Where can I get more information? Your pharmacist can provide more information about cyclobenzaprine. Remember, keep this and all other medicines out of the reach of children, never share your medicines with others, and use this medication only for the indication prescribed. Every effort has been made to ensure that the information provided by [employer]. ('[employer]') is accurate, up-to-date, and complete, but no guarantee is made to that effect. Drug information contained herein may be time sensitive. [employer] information has been compiled for use by healthcare practitioners and consumers in the [place] and therefore [employer] does not warrant that uses outside of the [place] are appropriate, unless specifically indicated otherwise. [employer] drug information does not endorse drugs, diagnose patients or recommend therapy. [employer] drug information isan informational resource designed to assist licensed healthcare practitioners in caring for their p atients and/or to serve consumers viewing this service as a supplement to, and not a substitute for, the expertise, skill, knowledge and judgment of healthcare practitioners. The absence of a warningfor a given drug or drug combination in no way should be construed to indicate that the drug or drug combination is safe, effective or appropriate for any given patient. [employer] does not assume any responsibility for any aspect of healthcare administered with the aid of information [employer] provides. The information contained herein is not intended to cover all possible uses, directions, precautions, warnings, drug interactions, allergic reactions, or adverse effects. If you have questions about the drugs you are taking, check with your doctor, nurse or pharmacist. Copyright 3778-4720 [employer]. Version: 7.01. Revision Date: 04/17/2023. Education Materials Kidney Stone, Undescended, No Symptoms A kidney stone (nephrolithiasis) begins as tiny crystals that form inside the kidney where urine ismade. Most kidney stones enlarge to about 1/8 to 1/4 inch in size before leaving the kidney and moving toward the bladder. There are 4 types of kidney stones. Eighty percent are calcium stones mostlycalcium oxalate but also some with calcium phosphate. The other 3 types include uric acid stones, struvite stones (from a preceding infection), and rarely, cystine stones. When the stone breaks free and begins to move down the ureter (the narrow tube joining the kidney to the bladder) it often causes sharp back and side pain, often with nausea and vomiting. When the stone reaches the bladder, the pain stops. Once in your bladder, the kidney stone may pass through theurethra (urinary opening) while you are urinating (which may cause pain to start again). Or, it maybreak into such small fragments that you don t notice it passing. Your kidney stone is still inside the kidney. There is no way to predict how long it will be beforeit breaks free and causes any symptoms. Most stones will pass on their own within a few hours to a few days (sometimes longer). You may notice a red, pink, or brown color to your urine. This is normal while passing a kidney stone. A large stone may not pass on its own and may require special procedures to remove it. These procedures include lithotripsy, which uses ultrasound waves to break up thestone; ureteroscopy, which pushes a thin, basket-like instrument through the urethra and bladder and into the ureter to pull out the stone; and various types of direct surgery through the skin. Home care The following guidelines will help you care for yourself at home: Drink plenty of fluids. This increases urine flow and reduces the risk of further stone formation. Healthy adults (no heart/liver/kidney disease) who have had a kidney stone should drink 12, 8-ounce glasses of fluids per day. Most of this should be water. The goal is to produce 1.5 to 2 quarts of almost colorless urine per 24 hours. You should collect your urine in a container and then drain it through a strainer to collect any stones or pieces of stones. Take these to your healthcare provider to help identify your specific typeof stone to aid in future treatment and dietary changes. Try to stay as active as possible since this will help the stone pass. Don't stay in bed unless youhave pain that prevents you from getting up. If you develop pain, you may take ibuprofen or naproxen for pain, unless another medicine was prescribed. If you have chronic liver or kidney disease or ever had a stomach ulcer or GI bleeding, talk with your healthcare provider before using these medicines. Prevention Each year, there is a 5% to 10% chance that a new stone will form (50% chance over the next 5 to 7 years). The risk is higher if you have a family history of kidney stones or have certain chronic illnesses such as hypertension, obesity, or diabetes. However, there are lifestyle and dietary changes that you can make to reduce the risk of a recurrence. Most kidney stones are made of calcium. The following is advice for preventing a recurrence of calcium stones. If you don t know the type of stone you have, follow this advice until the cause of yourstone is determined. Things that help: The most important thing you can do is to drink plenty of fluids each day, as described above. Certain foods, such as wheat, rice, rye, barley and beans, contain phytate, a compound that may lower the risk of recurrence of any type of stone. Eat more fruits and vegetables (especially those high in potassium). Eat foods high in natural citrate like fruit and fruit juices (using low sugar). Low calcium contributes to the formation of calcium type kidney stones. Eat a normal calcium diet and speak with your doctor if you are taking calcium supplements. It may be detrimental to reduce your calcium intake. New research shows that eating calcium-rich and oxalate-rich foods together lowersyour risk of stones by binding the minerals in the stomach and intestines before they can reach thekidneys. Limit salt intake to 2 grams (1 teaspoon) per day. Use limited amounts when cooking, and don t add salt at the table. Processed and canned foods are usually high in salt. Spinach, rhubarb, peanuts, cashews and almonds, grapefruit and grapefruit juice are all high oxalate foods and should be reduced, or eaten with calcium rich foods. These foods include dairy, dark leafy greens, soy products, and calcium enriched foods. Reducing the amount of animal meat in your diet may lower your risk of uric acid stones. Don't have excess sugar (sucrose) and fructose (sweetener in many soft drinks) in your diet. If you take vitamin C as a supplement, do not take more than 1,000 milligrams (mg) per day. A dietitian or your healthcare provider can provide you with specific details about dietary changesto prevent kidney stone recurrence. Follow-up care Follow up with your healthcare provider, or as advised. Talk with your healthcare provider about urine and blood tests to find out the cause of your stone. If you had an X-ray, CT scan, or other diagnostic test, you will be notified of any findings that may affect your care. Call 911 Call 911 if you have any of these: Weakness, dizziness, or fainting When to seek medical advice Call your healthcare provider right away if any of the these occur: Severe sharp back or side pain Repeated vomiting or unable to keep down fluids Fever of 100.4 F (38 C) or higher, or as directed by your health care provider Blood (pink or red color) in your urine Foul smelling or cloudy urine Unable to pass urine for 8 hours or increasing bladder pressure 3432-2508 [employer]. [address] [place] [address]. All rights reserved. This information is not intended as a substitute for professional medical care. Always follow yourhealthcare professional's instructions. Flank Pain, Uncertain Cause The flank is the area between your upper abdomen and your back. Pain there is often caused by a problem with your kidneys. It might be a kidney infection or a kidney stone. Other causes of flank paininclude spinal arthritis, a pinched nerve from a back injury, or a back muscle strain or spasm. The cause of your flank pain is not certain. You may need other tests. Home care Follow these tips when caring for yourself at home: You may use acetaminophen or ibuprofen to control pain, unless your health care provider prescribedanother medicine. If you have chronic liver or kidney disease, talk with your provider before taking these medicines. Also talk with your provider first if you ve ever had a stomach ulcer or GI bleeding. If the pain is coming from your muscles, you may get relief with ice or heat. During the first 2 days after the injury, put an ice pack on the painful area for 20 minutes every 2 to 4 hours. This will reduce swelling and pain. A hot shower, hot bath, or heating pad works well for a muscle spasm. You can start with ice, then switch to heat after 2 days. You might find that alternating ice and heatworks well. Use the method that feels the best to you. Follow-up care Follow up with your healthcare provider if your symptoms don t get better over the next few days. When to seek medical advice Call your healthcare provider right away if any of these happen: Repeated vomiting Fever of 100.4 F (38 C) or higher, or as directed by your health care provider Flank pain that gets worse Pain that spreads to the front of your belly (abdomen) Dizziness, weakness, or fainting Blood in your urine Burning feeling when you urinate or the need to urinate often Pain in one of your legs that gets worse Numbness or weakness in a leg [id number] [employer] [address] [place] [address], [place] [address]. All rights reserved. This information is not intended as a substitute for professional medical care. Always follow yourhealthcare professional's instructions. Additional Information VACCINATE! IT SAVES LIVES! Members of the community who have not yet received the COVID-19 vaccine and would like to receive it can visit one of [facility] vaccine clinics. There are many vaccine clinic locations within the [facility]. For locations and available times, please visit www.gettheshot.coronavirus.[place].gov/. It is important to note that some COVID mobile vaccine clinics are held outdoors and may be canceled in rainy or stormy conditions. To learn more about pediatric vaccinations (ages 5-11), we invite you to visit the [facility] webpage. https://[email or web address].org/[email or web address]-[email or web address] [email or web address] learn more about the COVID-19 vaccine, we invite you to visit the CDC website for a list of frequently asked questions. https://www.cdc.gov/coronavirus/2019-ncov/vaccines/faq.html [facility] Patient Portal Access Instructions: Stay connected with your healthcare team and access your personal medical information anytime with the [facility] Patient Portal. If you would like a full copy of your medical records please contact the [facility] Medical Records Department Thursday through Thursday between 8a.m. and 4:30p.m. Please follow the directions below to access the portal: 1.Access the email account you provided upon registration to the hospital.2.Look for an invitation email from [facility].3.Open the email and access the invitation link: Accept Invitation to [facility]4.Fill in the required xiong to create your account. Sign into [email or web address] with your username and password that you created in the above steps to stay up to date. You can then view a summary of results, a summary of your visits, and the ability to download your summaries to your computer or send the information securely to a physician. Remember that your healthcare information is confidential, so carefully consider who you will allow to register on the [facility] Patient Portal for access to your information. You can also access the [facility] Patient Portal on the [employer]. Simply click on Health Records under [employer] and then click on the [employer] logo. HOW TO SAFELY DISPOSE OF PRESCRIPTION MEDICATIONS Please use one of the following methods to safely dispose of your unused medications. 1.Use a drug disposal kit: the drug disposal pouch allows you to safely discard your old and unuseddrugs. Ask your nurse to give you one when you are discharged.2.Visit a local take-back location: Many local pharmacies and police departments have programs that collect old and unwanted prescriptiondrugs. Call your local pharmacy or go to http://Vidiowiki.[employer]/0M0Jf6g to find one close to you.3.Make use of household items: Use cat litter or old coffee grounds to dispose medications if other options arenot available. Mix your drugs with these household products, seal them in an airtight container andthrow it into the garbage. Call [facility]: [phone] to be sure your drugs can be disposed of in this way. Some medicines may require a different approach.4.Never flush your medications down the toilet. IF YOU HAVE BEEN PRESCRIBED AN OPIOIDS FOR PAIN If you have been prescribed an opioid (such as hydrocodone, oxycodone or morphine), it is critical to understand the possible side effects and risks of opioid pain medications. Even when taken as directed, opioids can have several side effects including: Tolerance, meaning you might need to take more of a medication for the same pain relief. Nausea, vomiting and/or constipation. Sleepiness, dizziness, dry mouth, confusion, depression or itching. Physical dependence, meaning you have withdrawal symptoms when a medication is stopped ? this can develop within a few days. KNOW YOUR RESPONSIBILITIES It is important to know exactly how much and how often to take the opioid pain medications you are prescribed. Never take opioids in higher amounts or more often than prescribed. Do not combine opioids with alcohol or other drugs that cause drowsiness, such as benzodiazepines, also known as benzos,including diazepam and alprazolam, muscle relaxants or sleep aids. Never sell or share prescriptionopioids. This is illegal. Store opioids in a secure place and out of reach of others (including children, family, friends and visitors). The last page(s) of this document has been signed and retained as a CHART COPY Signatures Patient Education Materials Kidney Stone, Undescended (No Symptoms) Flank Pain, Uncertain Cause Medication Leaflets cyclobenzaprine My discharge plan and instructions have been reviewed and explained to me and I,SALLY VARGAS understand my current condition and have read and understand these discharge instructions. I have received a written copy of the plan/instructions. If I have questions, I am aware that I should contact my doctor. 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 Signature: Date/Time: Relationship to Patient: Witness Name/Signature: Date/Time: [facility]01-11-2025 Note* Exam Date Time Procedure Performing Provider Status 09/24/24 11:[address] Abdomen/Pelvis w/o Contrast LUZ MIHIR DO; Auth (Verified) [id number] ORIGINAL EXAMINATION: Exam Title:CT OF THE ABDOMEN AND PELVIS WITHOUT CONTRAST Completed Time: 09/24/2024 11:58 am Procedure Description:CT ABDOMEN/PELVIS WITHOUT CONTRAST COMPARISON: February 04, 2024 CT abdomen pelvis HISTORY: ORDERING SYSTEM PROVIDED HISTORY: Reason for Exam: LEFT flank [id number]^ TECHNIQUE: Noncontrast CT performed according to protocol with multiplanar reconstructions. This exam was performed according to our departmental dose optimization program, and includes the following measures where applicable: automated exposure control, adjustment of the mAs and/or kVp according to patient size and/or exam, and an iterative reconstruction algorithm. FINDINGS: Lack of IV and oral contrast limits soft tissue differentiation. Heart size upper limits of normal caliber-mildly enlarged. Tiny pericardial effusion. No hiatal hernia. Mild right middle lobe scar/atelectasis. There are multiple well-circumscribed low-attenuation foci of liver, largest measures up to 3.8 cm, similar to prior exams and felt to be benign cysts. Cholecystectomy. Portal vein caliber normal. Pancreas, spleen, adrenal glands, aorta, inferior vena cava normal in appearance. No obstructive uropathy. There are several peripheral collecting system calculi left kidney measuring up to 2.6 mm. No evidence for ureteral or bladder calculi. Several deep pelvic phleboliths. No bowel obstruction or pneumoperitoneum. Terminal ileum normal in appearance. Lfcl-fr-wjipechy amount of stool throughout the colon. No enlarged lymph nodes. No free fluid. Hysterectomy. Bladder contour normal. Obese body habitus. Mild discogenic change thoracic spine. No gross acute osseous process. IMPRESSION:[] 1. No acute process demonstrated. 2. Other findings described above. Interpreted by: Mihir Oakes DO Preliminary Report By: Mihir Oakes DO Electronically signed By Mihir Oakes DO Dictated Date: 09/24/2024 12:09:26 PM Prelim Date: 09/24/2024 12:14:21 PM Sign Date: 09/24/2024 12:14:21 PM Ordering Provider: [facility]01-08-2025 NoteHNO ID: [id number] Author: JAJA CHAHAL APRN.CLASSROOM TEACHER Service: ? Author Type: Nurse Practitioner Type: Progress Notes Filed: 09/21/2024 10:55 Note Text: CC: Patient presents with: Cough: Congestion x 1 month HPI: Sally Vargas is a 44 year old female who presents to the office with above complaint Symptoms began one month ago and are worsening Symptoms include: Temperature elevation: No Chills: No Cough: Yes non-productive Shortness of breath: No Fatigue: Yes Muscle aches: No Headache: Yes New loss of smell or taste: No Sore throat: Yes Nasal congestion: Yes Rhinorrhea: No Nausea and/or vomiting: No Diarrhea: No Other Associated symptoms: wheezing. PMH: asthma OTC meds/remedies that patient has tried: none. Exposures: Sick contacts? No Family or close contacts with confirmed/probable COVID-19 in last 14 days? No Home COVID test: yes, negative Review of Systems See HPI PAST MEDICAL HISTORY Diagnosis Date Allergic rhinitis, cause unspecified 05/17/2008 Spring and summer Benign liver cyst 05/24/2010 CT scan at [facility] 11/2009 and 04/2010 showe 4 mm increase in size. No pain. No elevated LFTs on 03/11/2010. Calculus of kidney 05/17/[address] Nicolas: Hospitalized age 20, and again later -- no procedures so far ([facility], [facility], [address] [facility]) Cancer (HCC) COVID-19 virus infection 10/07/202109/2021 Diverticulosis Dysmenorrhea Hemorrhoids History of blood transfusion Impaired fasting glucose 05/17/2008 Sugar 104 fasting, 04/21 Intractable nausea and vomiting 05/25/2020 Marijuana use 07/10/2020 ER visit 07/06/2020, [place] [facility] 05/17/2008 Has used imitrex with good response; Keeps Vicodin on hand when needed; Ovarian cyst 07/15/2012 Pancreatitis Smoker 05/17/2008 Started age 26, 1/2 a PPD PAST SURGICAL HISTORY Procedure Laterality Date CHOLECYSTECTOMY HX COLONOSCOPY 05/08/2020 poor prep, stool in entire colon, int hemorrhoids, diverticulosis DILATION AND CURETTAGE DXAND/THER NONOBSTETRIC 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, mild esophagitis, 2 cm [facility] 05/28/2020 LIG/TRNSXJ FLP TUBE ABDL/VAG APPR UNI/BI OOPHORECTOMY PARTIAL/TOTAL UNI/BI 2009 Oophorectomy right, still has left OOPHORECTOMY PARTIAL/TOTAL UNI/BI 01/2015 left removed PAST SURGICAL HISTORY OF uterine ablation PAST SURGICAL HISTORY OF cyst removal TOTAL ABDOMINAL HYSTERECT W/WO RMVL TUBE OVARY 08/31/2006 Hysterectomy, MICHELINE ALLERGIES Aspirin, Penicillins, Cephalexin, Chlorhexidine, Ciprofloxacin, Iodinated Contrast Media, Toradol [Ketorolac], Asa [Salicylates], Contrast Dye [Iodine], Dicyclomine, and Ibuprofen MEDICATIONS cyclobenzaprine (FLEXERIL) 10 mg tablet Take 1 tablet by mouth three times a day as needed. fluticasone-salmeterol (WIXELA INHUB) 500-50 mcg/dose dsdv Inhale 1 Puff as instructed two times a day. fluticasone-salmeterol (WIXELA INHUB) 250-50 mcg/dose inhaler Inhale 1 Puff as instructed two times a day. albuterol HFA (VENTOLIN HFA) 90 mcg/actuation inhaler Inhale 2 Puffs as instructed every 4 hours as needed for wheezing/shortness of breath. Cholecalciferol, Vitamin D3, 50 mcg (2,000 unit) cap Take 1 capsule by mouth once daily. SUMAtriptan (IMITREX STATDOSE PEN) 6 mg/0.5 mL pen Inject 0.5 mL subcutaneously as needed for migraine headache (see administration instructions). May repeat dose after 1 hour if needed. Maximum daily dose is 12 mg per day. pantoprazole DR (PROTONIX) 40 mg tablet Take 1 tablet by mouth daily before breakfast. Take on empty stomach, 1/2 hr before meal. ARIPiprazole (ABILIFY) 10 mg tablet Take 10 mg by mouth once daily. LORazepam (ATIVAN) 0.5 mg Take 0.5 mg by mouth once daily as needed. Mesalamine (LIALDA) 1.2 gram EC tablet Take 1,200 mg by mouth once daily. traZODone (DESYREL) 50 mg tablet Take 50 mg by mouth daily at bedtime. promethazine (PHENERGAN) 25 mg tablet Take 1 tablet by mouth every 8 hours as needed for nausea/vomiting. devliy-efxyldax-cseaqzs (CREON 3) 3,000-9,500- 15,000 unit delayed release capsule Take 1 capsule by mouth three times a day with meals. gabapentin (NEURONTIN) 400 mg capsule Take 1 capsule by mouth every 12 hours. diphenhydrAMINE (BENADRYL) 25 mg capsule Take 50 mg by mouth at bedtime as needed. Tzhgolwborqsecu-Kbohriwrf-JX (BROMFED DM) 2-30-10 mg/5 mL syrup Take 5 mL by mouth four times a day as needed. FAMILY HISTORY Problem Relation Age of Onset Thyroid Mother unsure of details Arthritis Mother fibromyalgia Blood Disease Mother blood clots, unsure of details (aorta?) No Known Problems Father No Known Problems Sister No Known Problems Sister No Known Problems Brother Diabetes Maternal Grandmother Diabetes Maternal Grandfather Lipids Maternal Grandfather Stroke Maternal Grandfather Coronary Artery Disease Maternal Grandfather Cataract Maternal Grandfather Pancreatic Cance (more content not included)...[facility] 09-21-2024 History of Present illness Narrative* Jaja Chahal, CAR ATTENDANT.CLASSROOM TEACHER - 09/21/2024 10:40 AM EST CC: Patient presents with: Cough: Congestion x 1 month HPI: Sally Vargas is a 44 year old female who presents to the office with above complaint Symptoms began one month ago and are worsening Symptoms include: Temperature elevation: No Chills: No Cough: Yes non-productive Shortness of breath: No Fatigue: Yes Muscle aches: No Headache: Yes New loss of smell or taste: No Sore throat: Yes Nasal congestion: Yes Rhinorrhea: No Nausea and/or vomiting: No Diarrhea: No Other Associated symptoms: wheezing. PMH: asthma OTC meds/remedies that patient has tried: none. Exposures: Sick contacts? No Family or close contacts with confirmed/probable COVID-19 in last 14 days? No Home COVID test: yes, negative Review of Systems See HPI PAST MEDICAL HISTORY Diagnosis Date Allergic rhinitis, cause unspecified 05/17/2008 Spring and summer Benign liver cyst 05/24/2010 CT scan at [facility] 11/2009 and 04/2010 showe 4 mm increase in size. No pain. No elevated LFTs on 03/11/2010. Calculus of kidney 05/17/[address] Nicolas: Hospitalized age 20, and again later -- no procedures so far ([facility], [address] [facility]) Cancer (HCC) COVID-19 virus infection 10/07/202109/2021 Diverticulosis Dysmenorrhea Hemorrhoids History of blood transfusion Impaired fasting glucose 05/17/2008 Sugar 104 fasting, 04/21 Intractable nausea and vomiting 05/25/2020 Marijuana use 07/10/2020 ER visit 07/06/2020, [place] [facility] 05/17/2008 Has used imitrex with good response; Keeps Vicodin on hand when needed; Ovarian cyst 07/15/2012 Pancreatitis Smoker 05/17/2008 Started age 26, 1/2 a PPD 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, mild esophagitis, 2 cm hiatal hernia [facility] 05/28/2020 LIG/TRNSXJ FLP TUBE ABDL/VAG APPR UNI/BI OOPHORECTOMY PARTIAL/TOTAL UNI/BI 2009 Oophorectomy right, still has left OOPHORECTOMY PARTIAL/TOTAL UNI/BI 01/2015 left removed PAST SURGICAL HISTORY OF uterine ablation PAST SURGICAL HISTORY OF cyst removal TOTAL ABDOMINAL HYSTERECT W/WO RMVL TUBE OVARY 08/31/2006 Hysterectomy, MICHELINE ALLERGIES Aspirin, Penicillins, Cephalexin, Chlorhexidine, Ciprofloxacin, Iodinated Contrast Media,Toradol [Ketorolac], Asa [Salicylates], Contrast Dye [Iodine], Dicyclomine, and Ibuprofen MEDICATIONS cyclobenzaprine (FLEXERIL) 10 mg tablet Take 1 tablet by mouth three times a day as needed. fluticasone-salmeterol (WIXELA INHUB) 500-50 mcg/dose dsdv Inhale 1 Puff as instructed two times a day. fluticasone-salmeterol (WIXELA INHUB) 250-50 mcg/dose inhaler Inhale 1 Puff as instructed two timesa day. albuterol HFA (VENTOLIN HFA) 90 mcg/actuation inhaler Inhale 2 Puffs as instructed every 4 hours asneeded for wheezing/shortness of breath. Cholecalciferol, Vitamin D3, 50 mcg (2,000 unit) cap Take 1 capsule by mouth once daily. SUMAtriptan (IMITREX STATDOSE PEN) 6 mg/0.5 mL pen Inject 0.5 mL subcutaneously as needed for migraine headache (see administration instructions). May repeat dose after 1 hour if needed. Maximum daily dose is 12 mg per day. pantoprazole DR (PROTONIX) 40 mg tablet Take 1 tablet by mouth daily before breakfast. Take on empty stomach, 1/2 hr before meal. ARIPiprazole (ABILIFY) 10 mg tablet Take 10 mg by mouth once daily. LORazepam (ATIVAN) 0.5 mg Take 0.5 mg by mouth once daily as needed. Mesalamine (LIALDA) 1.2 gram EC tablet Take 1,200 mg by mouth once daily. traZODone (DESYREL) 50 mg tablet Take 50 mg by mouth daily at bedtime. promethazine (PHENERGAN) 25 mg tablet Take 1 tablet by mouth every 8 hours as needed for nausea/vomiting. gvrfhs-vbkuwine-etcfqvb (CREON 3) 3,000-9,500- 15,000 unit delayed release capsule Take 1 capsule by mouth three times a day with meals. gabapentin (NEURONTIN) 400 mg capsule Take 1 capsule by mouth every 12 hours. diphenhydrAMINE (BENADRYL) 25 mg capsule Take 50 mg by mouth at bedtime as needed. Yefpxjqqfpmatgk-Avlctxkpq-CG (BROMFED DM) 2-30-10 mg/5 mL syrup Take 5 mL by mouth four times a dayas needed. FAMILY HISTORY Problem Relation Age of Onset Thyroid Mother unsure of details Arthritis Mother fibromyalgia Blood Disease Mother blood clots, unsure of details (aorta?) No Known Problems Father No Known Problems Sister No Known Problems Sister No Known Problems Brother Diabetes Maternal Grandmother Diabetes Maternal Grandfather Lipids Maternal Grandfather Stroke Maternal Grandfather Coronary Artery Disease Maternal Grandfather Cataract Maternal Grandfather Pancreatic Cancer Maternal Grandfather Diabetes Paternal Grandmother Diabetes Paternal Grandfather Coronary Artery Disease Paternal Grandfather No Known Problems Son No Known Problems Son Breast Cancer Maternal Aunt Lipids Maternal Uncle Coronary Artery Disease Maternal Uncle other (ovarian ca) Other maternal cousin Colon Cancer No Family History Social History Tobacco Use Smoking status: Former Current packs/day: 0.00 Average packs/day: 0.5 packs/day for 3.0 years (1.5 ttl pk-yrs) Types: Cigarettes Start date: 01/12/2014 Quit date: 01/12/2017 Years since quittin.6 Smokeless tobacco: Never Tobacco comments: 1/2 pack per day Vaping Use Vaping status: Never Used Substance Use Topics Alcohol use: Yes Comment: Occasional Drug use: Never BP 126/78 Pulse 85 Temp 36.2 C (97.2 F) (Temporal) Resp 16 Wt 90.8 kg (200 lb 2.8 oz) 08/10/2006 SpO2 99% BMI 37.31 kg/m Physical Exam Vitals reviewed. Constitutional: General: She is not in acute distress. Appearance: She is ill-appearing. She is not toxic-appearing. HENT: Head: Normocephalic and atraumatic. Right Ear: Tympanic membrane normal. Left Ear: Tympanic membrane normal. Nose: Right Sinus: Maxillary sinus tenderness present. No frontal sinus tenderness. Left Sinus: Maxillary sinus tenderness present. No frontal sinus tenderness. Mouth/Throat: Lips: [place]. Mouth: Mucous membranes are moist. Pharynx: Oropharynx is clear. Eyes: Conjunctiva/sclera: Conjunctivae normal. Cardiovascular: Rate and Rhythm: Normal rate and regular rhythm. Heart sounds: Normal heart sounds. No murmur heard. Pulmonary: Effort: Pulmonary effort is normal. Breath sounds: Normal breath sounds. No wheezing, rhonchi or rales. Lymphadenopathy: Cervical: No cervical adenopathy. Skin: General: Skin is warm and dry. Neurological: Mental Status: She is alert. ASSESSMENT/PLAN: 1. Acute non-recurrent maxillary sinusitis - ICD9: 461.0, ICD10: J01.00 (primary diagnosis) - Will begin treatment with Doxycycline 100 mg BID x 7 days - Supportive care with plenty of fluids, rest, and analgesia prn. - Follow up in 3-5 days if symptoms persist or worsen. 2. Moderate persistent asthma, unspecified whether complicated - ICD9: 493.90, ICD10: J45.40 Persistent cough for months. Has been seen multiple times in primary care and [facility] for this. Recommend referral to pulmonology, patient agreeable - CONSULT TO PULMONARY MEDICINE Prescription instructions reviewed with patient as applicable. Potential red flag symptoms discussed with the patient. Reviewed appropriate action plan to take if red flag symptoms occur. Patient agreeable to treatment plan. Jaja Chahal APRN.CLASSROOM TEACHER documented [facility] Telephone encounter Note * Telephone Encounter - Renetta Hernández RN - 09/21/2024 9:56 AM EST Patient calling to request appointment today for evaluation of cough and upper respiratory symptomsthat have been ongoing for approximately 1 month. Reports she feels she had a virus around 09/05/24as well. Reports current sore throat, mild headache, occ cough, soreness in rib areas from coughingand lower back discomfort. Reports mild SOB at rest at times. No severe SOB. Denies fever, chills, chest pain, lightheadedness, dizziness, feeling like passing out, or N/V/D. Appt made with provider for this morning. Patient advised to proceed to the nearest Emergency Room for any severe symptoms as discussed. Renetta Hernández RN [facility]01-08-[facility] Miscellaneous Notes* Telephone Encounter - Renetta Hernández RN - 09/21/2024 9:56 AM EST Patient calling to request appointment today for evaluation of cough and upper respiratory symptomsthat have been ongoing for approximately 1 month. Reports she feels she had a virus around 09/05/24as well. Reports current sore throat, mild headache, occ cough, soreness in rib areas from coughingand lower back discomfort. Reports mild SOB at rest at times. No severe SOB. Denies fever, chills, chest pain, lightheadedness, dizziness, feeling like passing out, or N/V/D. Appt made with provider for this morning. Patient advised to proceed to the nearest Emergency Room for any severe symptoms as discussed. Renetta Hernández RN documented in this encounterKn[facility]12-18-2024 Telephone encounter Note * Telephone Encounter - Lexy Desouza LPN - 08/31/2024 10:16 AM EST Pt cancelled apt. I called to see if she needed to reschedule and she reports no does not need to reschedule. Lexy Desouza LPN [facility]12-18-2024 Miscellaneous Notes* Telephone Encounter - Lexy Desouza LPN - 08/31/2024 10:16 AM EST Pt cancelled apt. I called to see if she needed to reschedule and she reports no does not need to reschedule. Lexy Desouza LPN * Telephone Encounter - Lexy Desouza LPN - 08/29/2024 11:18 AM EST Pt called in to geta virtual apt with Dr. Haley. Pt has a cough that is persisting along with congestion, sore throat and chills. Symptoms going on for 1 week. Pt offered apt and declines. She is insisting on a virtual apt. Pt reports she can not drive and transportation is an issue. Pt hurting in ribs from so much coughing. Denies, fever, loss of smell or taste, abdomen pain, chest pain, shortness of breath. Pt reports Dr. Haley knows her and her situation and pt wants something called in. Virtual apt booked for 08-30-24 with provider/team. Please advise pt. documented in this encounterKn[facility]12-16-2024 Telephone encounter Note * Telephone Encounter - Lexy Desouza LPN - 08/29/2024 11:18 AM EST Pt called in to geta virtual apt with Dr. Haley. Pt has a cough that is persisting along with congestion, sore throat and chills. Symptoms going on for 1 week. Pt offered apt and declines. She is insisting on a virtual apt. Pt reports she can not drive and transportation is an issue. Pt hurting in ribs from so much coughing. Denies, fever, loss of smell or taste, abdomen pain, chest pain, shortness of breath. Pt reports Dr. Haley knows her and her situation and pt wants something called in. Virtual apt booked for 08-30-24 with provider/team. Please advise pt. [facility]12-[facility] Telephone encounter Note* Telephone Encounter - Kristen Andrade LPN - 08/22/2024 5:29 PM EST Patient notified of providers recommendations and verbalized understanding. Patient declines ER visit. She states they are not blue at this time but will schedule an appointment if blue lips returns [facility]12-09-[facility]24 Miscellaneous Notes* Telephone Encounter - Kristen Andrade LPN - 08/22/2024 5:29 PM EST Patient notified of providers recommendations and verbalized understanding. Patient declines ER visit. She states they are not blue at this time but will schedule an appointment if blue lips returns * Telephone Encounter - Gretchen Newton APRN.CNS - 08/22/2024 4:54 PM EST Noted agree, if signs of hypoxia should go to ER. * Telephone Encounter - Paradise Haley RN - 08/22/2024 1:00 PM EST Patient calls and states that her bottom lip has been blue since Thursday. Advised patient that if her bottom lip is blue then she needs to go to ER to be evaluated as to why her bottom lip is blue. Patient asking if Dr. Haley has a virtual visit for this. Advised patient that Dr. Haley currently is out and that she needs to go to ED if her bottom lip is blue. Patient was seen at [facility] ER on 08/21/2024 for back pain. No mention of lower blue lips in ER notes. Please review and advise, Paradise Haley RN documented in this encounterKn[facility]12-09-2024 Telephone encounter Note * Telephone Encounter - Gretchen Newton APRN.CNS - 08/22/2024 4:54 PM EST Noted agree, if signs of hypoxia should go to ER. [facility]12-09-[facility] Telephone encounter Note* Telephone Encounter - Paradise Haley RN - 08/22/2024 1:00 PM EST Patient calls and states that her bottom lip has been blue since Thursday. Advised patient that if her bottom lip is blue then she needs to go to ER to be evaluated as to why her bottom lip is blue. Patient asking if Dr. Haley has a virtual visit for this. Advised patient that Dr. Haley currently is out and that she needs to go to ED if her bottom lip is blue. Patient was seen at [facility] ER on 08/21/2024 for back pain. No mention of lower blue lips in ER notes. Please review and advise, Paradise Haley RN [facility]11-14-[facility]24 History of Present illness Narrative* Mini Bunch RT(R) - 07/28/2024 7:20 PM EST Radiology Service Progress Note PATIENT NAME: Sally Vargas DATE OF SERVICE: July 28, 2024 TIME: 7:13 PM PATIENT IDENTITY VERIFICATION COMPLETED USING TWO (2) IDENTIFIERS: Name and Date of confirmedby patient verbally. FALL SCREENING: Has the patient had 2 falls in the last year or 1 fall with injury or currently using an Ambulatory Assistive Device (Walker, Cane, Wheelchair, Crutches, etc.)? No PATIENT GENDER DATA: Female. status: : No status: NO. PATIENT RELEVANT IMPLANT DATA REVIEWED: Yes PATIENT PRESENTS WITH AN IMPLANTABLE OR ATTACHED RAW FINISH MILL OPERATOR: No RADIOLOGY DEPARTMENT: General X-ray: Exam(s) Completed: Chest X-Ray PERIPHERAL IV DATA: Not applicable SIGNED BY: RT Belinda(R) July 28, 2024 7:13 PM documented in this encounterKn[facility]11-14-2024 NoteHNO ID: [id number] Author: MINI BUNCH RT(R) Service: ? Author Type: Costume Designer Type: Progress Notes Filed: 07/28/2024 19:20 Note Text: Radiology Service Progress Note PATIENT NAME: Sally Vargas DATE OF SERVICE: July 28, 2024 TIME: 7:13 PM PATIENT IDENTITY VERIFICATION COMPLETED USING TWO (2) IDENTIFIERS: Name and Date of confirmed by patient verbally. FALL SCREENING: Has the patient had 2 falls in the last year or 1 fall with injury or currently using an Ambulatory Assistive Device (Walker, Cane, Wheelchair, Crutches, etc.)? No PATIENT GENDER DATA: Female. status: : No status: NO. PATIENT RELEVANT IMPLANT DATA REVIEWED: Yes PATIENT PRESENTS WITH AN IMPLANTABLE OR ATTACHED RAW FINISH MILL OPERATOR: No RADIOLOGY DEPARTMENT: General X-ray: Exam(s) Completed: Chest X-Ray PERIPHERAL IV DATA: Not applicable SIGNED BY: RT Belinda(R) July 28, 2024 7:13 [facility]11-14-2024 NoteHNO ID: [id number] Author: JONATHAN BRUCE APRN.CLASSROOM TEACHER Service: ? Author Type: Nurse Practitioner Type: Progress Notes Filed: 07/28/2024 19:15 Note Text: CC: Patient presents with: Cough: Persistent coughing x 1 month HPI: Sally Vargas is a 43 year old female who presents to the office with complaint of cough, nonproductive for a month. Symptoms are staying the same. Associated symptoms includes cough. Denies fever, nausea, vomiting , and diarrhea. Treatments tried include nothing so far. with no relief of symptoms. Sick contacts: unknown. History of asthma, frequent episodes of bronchitis, chronic bronchitis, bronchiectasis or COPD: Yes asthma Smoker: Yes Seasonal/environmental allergies: No The ROS is otherwise negative. The patient's pmh, medications, allergies, and past visits are reviewed. PHYSICAL EXAM: BP 116/78 Pulse 96 Temp 36.9 ?C (98.5 ?F) Resp 20 Wt 90 kg (198 lb 6.6 oz) LMP 08/10/2006 SpO2 97% BMI 36.98 kg/m? General appearance: alert, cooperative, pleasant, in no acute distress Head: Normocephalic Eyes: EOM's intact, conjunctiva pink and moist, no icterus, sclera white, non-injected Ears: Right ear: External ear/canal- Normal, TM - clear with good landmarks. Left ear: External ear/canal- Normal, TM - clear with good landmarks Oropharynx:moist without lesions, No erythema, exudates or tonsillar hypertrophy. Heart: Negative. RRR without obvious murmur, gallop, or rubs. No ectopy. Lungs: clear to auscultation, without rales or wheeze, good air exchange PAST MEDICAL HISTORY Diagnosis Date Allergic rhinitis, cause unspecified 05/17/2008 Spring and summer Benign liver cyst 05/24/2010 CT scan at [facility] 11/2009 and 04/2010 showe 4 mm increase in size. No pain. No elevated LFTs on 03/11/2010. Calculus of kidney 05/17/[address] Nicolas: Hospitalized age 20, and again later -- no procedures so far ([facility], [facility], [address] [facility]) Cancer (HCC) COVID-19 virus infection 10/07/202109/2021 Diverticulosis Dysmenorrhea Hemorrhoids History of blood transfusion Impaired fasting glucose 05/17/2008 Sugar 104 fasting, 04/21 Intractable nausea and vomiting 05/25/2020 Marijuana use 07/10/2020 ER visit 07/06/2020, [place] MIGRAINE 05/17/2008 Has used imitrex with good response; Keeps Vicodin on hand when needed; Ovarian cyst 07/15/2012 Pancreatitis Smoker 05/17/2008 Started age 26, 1/2 a PPD PAST SURGICAL HISTORY Procedure Laterality Date CHOLECYSTECTOMY HX COLONOSCOPY 05/08/2020 poor prep, stool in entire colon, int hemorrhoids, diverticulosis DILATION AND CURETTAGE DXAND/THER NONOBSTETRIC 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, mild esophagitis, 2 cm hiatal hernia EGD W/O BRSH SPEC VARICIES INJ 05/28/2020 LIG/TRNSXJ FLP TUBE ABDL/VAG APPR UNI/BI OOPHORECTOMY PARTIAL/TOTAL UNI/BI 2009 Oophorectomy right, still has left OOPHORECTOMY PARTIAL/TOTAL UNI/BI 01/2015 left removed PAST SURGICAL HISTORY OF uterine ablation PAST SURGICAL HISTORY OF cyst removal TOTAL ABDOMINAL HYSTERECT W/WO RMVL TUBE OVARY 08/31/2006 Hysterectomy, MICHELINE ALLERGIES Aspirin, Penicillins, Cephalexin, Chlorhexidine, Ciprofloxacin, Iodinated Contrast Media, Toradol [Ketorolac], Asa [Salicylates], Contrast Dye [Iodine], Dicyclomine, and Ibuprofen MEDICATIONS cyclobenzaprine (FLEXERIL) 10 mg tablet Take 1 tablet by mouth three times a day as needed. fluticasone-salmeterol (WIXELA INHUB) 500-50 mcg/dose dsdv Inhale 1 Puff as instructed two times a day. albuterol HFA (VENTOLIN HFA) 90 mcg/actuation inhaler Inhale 2 Puffs as instructed every 4 hours as needed for wheezing/shortness of breath. Cholecalciferol, Vitamin D3, 50 mcg (2,000 unit) cap Take 1 capsule by mouth once daily. SUMAtriptan (IMITREX STATDOSE PEN) 6 mg/0.5 mL pen Inject 0.5 mL subcutaneously as needed for migraine headache (see administration instructions). May repeat dose after 1 hour if needed. Maximum daily dose is 12 mg per day. pantoprazole DR (PROTONIX) 40 mg tablet Take 1 tablet by mouth daily before breakfast. Take on empty stomach, 1/2 hr before meal. ARIPiprazole (ABILIFY) 10 mg tablet Take 10 mg by mouth once daily. LORazepam (ATIVAN) 0.5 mg Take 0.5 mg by mouth once daily as needed. Mesalamine (LIALDA) 1.2 gram EC tablet Take 1,200 mg by mouth once daily. traZODone (DESYREL) 50 mg tablet Take 50 mg by mouth daily at bedtime. promethazine (PHENERGAN) 25 mg tablet Take 1 tablet by mouth every 8 hours as needed for nausea/vomiting. iuzgrc-urchkfom-qwaiuft (CREON 3) 3,000-9,500- 15,000 unit delayed release capsule Take 1 capsule by mouth three times a day with meals. gabapentin (NEURONTIN) 400 mg capsule Take 1 capsule by mouth every 12 hours. diphenhydrAMINE (BENADRYL) 25 mg capsule Take 50 mg by mouth at bedtime as needed. HYDROcodone-homatropine (HYCODAN, WITH HOMATROPINE,) 5-1.5 mg/5 mL syrup Take 5 mL by mouth every 4 hours as neede (more content not included)...[facility]11-14-2024 History of Present illness Narrative* Jonathan Bruce APRN.CLASSROOM TEACHER - 07/28/2024 6:58 PM EST CC: Patient presents with: Cough: Persistent coughing x 1 month HPI: Sally Vargas is a 43 year old female who presents to the office with complaint of cough, nonproductive for a month. Symptoms are staying the same. Associated symptoms includes cough. Denies fever, nausea, vomiting , and diarrhea. Treatments tried include nothing so far. with no relief of symptoms. Sick contacts: unknown. History of asthma, frequent episodes of bronchitis, chronic bronchitis, bronchiectasis or COPD: Yesasthma Smoker: Yes Seasonal/environmental allergies: No The ROS is otherwise negative. The patient's pmh, medications, allergies, and past visits are reviewed. PHYSICAL EXAM: BP 116/78 Pulse 96 Temp 36.9 C (98.5 F) Resp 20 Wt 90 kg (198 lb 6.6 oz) LMP 08/10/2006 SpO2 97% BMI 36.98 kg/m General appearance: alert, cooperative, pleasant, in no acute distress Head: Normocephalic Eyes: EOM's intact, conjunctiva pink and moist, no icterus, sclera white, non-injected Ears: Right ear: External ear/canal- Normal, TM - clear with good landmarks. Left ear: External ear/canal- Normal, TM - clear with good landmarks Oropharynx:moist without lesions, No erythema, exudates or tonsillar hypertrophy. Heart: Negative. RRR without obvious murmur, gallop, or rubs. No ectopy. Lungs: clear to auscultation, without rales or wheeze, good air exchange PAST MEDICAL HISTORY Diagnosis Date Allergic rhinitis, cause unspecified 05/17/2008 Spring and summer Benign liver cyst 05/24/2010 CT scan at [facility] 11/2009 and 04/2010 showe 4 mm increase in size. No pain. No elevated LFTs on 03/11/2010. Calculus of kidney 05/17/[address] Nicolas: Hospitalized age 20, and again later -- no procedures so far ([facility], [address] [facility]) Cancer (HCC) COVID-19 virus infection 10/07/202109/2021 Diverticulosis Dysmenorrhea Hemorrhoids History of blood transfusion Impaired fasting glucose 05/17/2008 Sugar 104 fasting, 04/21 Intractable nausea and vomiting 05/25/2020 Marijuana use 07/10/2020 ER visit 07/06/2020, [place] MIGRAINE 05/17/2008 Has used imitrex with good response; Keeps Vicodin on hand when needed; Ovarian cyst 07/15/2012 Pancreatitis Smoker 05/17/2008 Started age 26, 1/2 a PPD 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, mild esophagitis, 2 cm hiatal hernia EGD W/O BRSH SPEC VARICIES INJ 05/28/2020 LIG/TRNSXJ FLP TUBE ABDL/VAG APPR UNI/BI OOPHORECTOMY PARTIAL/TOTAL UNI/BI 2009 Oophorectomy right, still has left OOPHORECTOMY PARTIAL/TOTAL UNI/BI 01/2015 left removed PAST SURGICAL HISTORY OF uterine ablation PAST SURGICAL HISTORY OF cyst removal TOTAL ABDOMINAL HYSTERECT W/WO RMVL TUBE OVARY 08/31/2006 Hysterectomy, MICHELINE ALLERGIES Aspirin, Penicillins, Cephalexin, Chlorhexidine, Ciprofloxacin, Iodinated Contrast Media,Toradol [Ketorolac], Asa [Salicylates], Contrast Dye [Iodine], Dicyclomine, and Ibuprofen MEDICATIONS cyclobenzaprine (FLEXERIL) 10 mg tablet Take 1 tablet by mouth three times a day as needed. fluticasone-salmeterol (WIXELA INHUB) 500-50 mcg/dose dsdv Inhale 1 Puff as instructed two times a day. albuterol HFA (VENTOLIN HFA) 90 mcg/actuation inhaler Inhale 2 Puffs as instructed every 4 hours asneeded for wheezing/shortness of breath. Cholecalciferol, Vitamin D3, 50 mcg (2,000 unit) cap Take 1 capsule by mouth once daily. SUMAtriptan (IMITREX STATDOSE PEN) 6 mg/0.5 mL pen Inject 0.5 mL subcutaneously as needed for migraine headache (see administration instructions). May repeat dose after 1 hour if needed. Maximum daily dose is 12 mg per day. pantoprazole DR (PROTONIX) 40 mg tablet Take 1 tablet by mouth daily before breakfast. Take on empty stomach, 1/2 hr before meal. ARIPiprazole (ABILIFY) 10 mg tablet Take 10 mg by mouth once daily. LORazepam (ATIVAN) 0.5 mg Take 0.5 mg by mouth once daily as needed. Mesalamine (LIALDA) 1.2 gram EC tablet Take 1,200 mg by mouth once daily. traZODone (DESYREL) 50 mg tablet Take 50 mg by mouth daily at bedtime. promethazine (PHENERGAN) 25 mg tablet Take 1 tablet by mouth every 8 hours as needed for nausea/vomiting. vzxnjb-gzvcqpdz-lrojxga (CREON 3) 3,000-9,500- 15,000 unit delayed release capsule Take 1 capsule by mouth three times a day with meals. gabapentin (NEURONTIN) 400 mg capsule Take 1 capsule by mouth every 12 hours. diphenhydrAMINE (BENADRYL) 25 mg capsule Take 50 mg by mouth at bedtime as needed. HYDROcodone-homatropine (HYCODAN, WITH HOMATROPINE,) 5-1.5 mg/5 mL syrup Take 5 mL by mouth every 4hours as needed for cough for up to 7 days. (Patient not taking: Reported on 07/28/2024) fluticasone-salmeterol (WIXELA INHUB) 250-50 mcg/dose inhaler Inhale 1 Puff as instructed two timesa day. FAMILY HISTORY Problem Relation Age of Onset Thyroid Mother unsure of details Arthritis Mother fibromyalgia Blood Disease Mother blood clots, unsure of details (aorta?) No Known Problems Father No Known Problems Sister No Known Problems Sister No Known Problems Brother Diabetes Maternal Grandmother Diabetes Maternal Grandfather Lipids Maternal Grandfather Stroke Maternal Grandfather Coronary Artery Disease Maternal Grandfather Cataract Maternal Grandfather Pancreatic Cancer Maternal Grandfather Diabetes Paternal Grandmother Diabetes Paternal Grandfather Coronary Artery Disease Paternal Grandfather No Known Problems Son No Known Problems Son Breast Cancer Maternal Aunt Lipids Maternal Uncle Coronary Artery Disease Maternal Uncle other (ovarian ca) Other maternal cousin Colon Cancer No Family History Social History Tobacco Use Smoking status: Former Current packs/day: 0.00 Average packs/day: 0.5 packs/day for 3.0 years (1.5 ttl pk-yrs) Types: Cigarettes Start date: 01/12/2014 Quit date: 01/12/2017 Years since quittin.5 Smokeless tobacco: Never Tobacco comments: 1/2 pack per day Vaping Use Vaping status: Never Used Substance Use Topics Alcohol use: Yes Comment: Occasional Drug use: Never ASSESSMENT/PLAN: 1. Acute cough - ICD9: 786.2, ICD10: R05.1 - XR CHEST 2V FRONTAL/LAT will call with results tomorrow if it requires antibiotic please treat she has had a zpak and Augmentin already. - IVUOCUDQOHAKNAA-YEUILPJXQYHPWMJ-FA 2 MG-30 MG-10 MG/5 ML ORAL SYRUP Prescription instructions reviewed with patient as applicable. Potential red flag symptoms discussed with the patient. Reviewed appropriate action plan to take if red flag symptoms occur. Patient agreeable to treatment plan. Jonathan Bruce APRN.MANUELITO documented in this encounterKn[facility]11-14-[facility]24 Telephone encounter Note * Telephone Encounter - Jesica Baker MA - 07/28/2024 6:17 PM EST Spoke to patient and advised provider note below. Patient declined appointment said she will just deal with the coughing and ended call. Jesica Baker MA [facility]11-14-2024 Miscellaneous Notes* Telephone Encounter - Jesica Baker MA - 07/28/2024 6:17 PM EST Spoke to patient and advised provider note below. Patient declined appointment said she will just deal with the coughing and ended call. Jesica Baker MA * Telephone Encounter - Robbin Hernandez MD - 07/28/2024 6:07 PM EST Patient's request for medication has been refused. See reason and notify patient. Requested Prescriptions Refused Prescriptions Disp Refills HYDROcodone-homatropine (HYCODAN, WITH HOMATROPINE,) 5-1.5 mg/5 mL syrup 210 mL 0 Sig: Take 5 mL by mouth every 4 hours as needed for cough for up to 7 days. Refused By: ROBBIN HERNANDEZ Reason for Refusal: A Refill not appropriate Schedule with PCP IN THE OFFICE for evaluation of ongoing cough. * Telephone Encounter - Kristen Andrade LPN - 07/28/2024 5:15 PM EST Patient is very upset and crying routed to Dr. Cleaning to see if her would ordering since Gretchen is not able. From triage: [facility] Pharmacy called back. I tried to help but they says they have Gretchen's NPI and CARLOS number but their system is telling them it is not registered with Medicaid. They said they need to talk to Terri. Casiano. * Telephone Encounter - Kristen Andrade LPN - 07/28/2024 4:53 PM EST Attempted to contact pharmacy regarding problem with NPI number for provider but they are not answering, had to leave a voice mail and ask to call back MEME as patient is needing her prescription filled today * Telephone Encounter - Nunu Carcamo, VIN - 07/28/2024 4:32 PM EST Patient phoned upset she cannot get the cough medicine. Reports she hasn't slept in 2 days d/t cough. Asking if Gretchen can get the number straightened out soon. See message below- a problem with NPI * Telephone Encounter - Ivanna Torre RN - 07/28/2024 4:26 PM EST Patient calls to report that pharmacy won't fill hydrocodone cough medicine. Call placed to [facility] and spoke to Oh who reports there is an issue with the NPI number for provider. Insurance won't allow the fill as they don't have information on file. Oh said he sent something to prescriber as well. Ivanna Torre, RN [facility] Telephone encounter Note * Telephone Encounter - Robbin Hernandez MD - 07/28/2024 6:07 PM EST Patient's request for medication has been refused. See reason and notify patient. Requested Prescriptions Refused Prescriptions Disp Refills HYDROcodone-homatropine (HYCODAN, WITH HOMATROPINE,) 5-1.5 mg/5 mL syrup 210 mL 0 Sig: Take 5 mL by mouth every 4 hours as needed for cough for up to 7 days. Refused By: ROBBIN HERNANDEZ Reason for Refusal: A Refill not appropriate Schedule with PCP IN THE OFFICE for evaluation of ongoing cough. [facility]11-14-[facility]24 Telephone encounter Note* Telephone Encounter - Kristen Andrade LPN - 07/28/2024 5:15 PM EST Patient is very upset and crying routed to Dr. Cleaning to see if her would ordering since Gretchen is not able. From triage: [facility] Pharmacy called back. I tried to help but they says they have Gretchen's NPI and CARLOS number but their system is telling them it is not registered with Medicaid. They said they need to talk to Terri. Casiano. [facility]11-14-[facility]24 Telephone encounter Note* Telephone Encounter - Kristen Andrade LPN - 07/28/2024 4:53 PM EST Attempted to contact pharmacy regarding problem with NPI number for provider but they are not answering, had to leave a voice mail and ask to call back MEME as patient is needing her prescription filled today [facility]11-14-2024 Telephone encounter Note* Telephone Encounter - Nunu Carcamo RN - 07/28/2024 4:32 PM EST Patient phoned upset she cannot get the cough medicine. Reports she hasn't slept in 2 days d/t cough. Asking if Gretchen can get the number straightened out soon. See message below- a problem with NPI [facility]11-14-2024 Telephone encounter Note* Telephone Encounter - Ivanna Torre RN - 07/28/2024 4:26 PM EST Patient calls to report that pharmacy won't fill hydrocodone cough medicine. Call placed to [facility] and spoke to Oh who reports there is an issue with the NPI number for provider. Insurance won't allow the fill as they don't have information on file. Oh said he sent something to prescriber as well. Ivanna Torre RN [facility] Telephone encounter Note* Telephone Encounter - Lexy Desouza LPN - 07/28/2024 4:02 PM EST Spoke with pt and transferred her to get testing scheduled. Lexy Desouza LPN [facility]11-14-2024 Miscellaneous Notes* Telephone Encounter - Lexy Desouza LPN - 07/28/2024 4:02 PM EST Spoke with pt and transferred her to get testing scheduled. Lexy Desouza LPN * Telephone Encounter - Ivanna Torre RN - 07/28/2024 3:34 PM EST Patient returns call and notified medication was sent to [facility]. Patient requested to be transferred to schedule spirometry and lung volume testing. Disconnected line before getting transferred. Ivanna Torre RN * Telephone Encounter - Gretchen Newton APRN.GARCIA - 07/28/2024 3:30 PM EST ok * Telephone Encounter - Renetta Hernández RN - 07/28/2024 2:26 PM EST Patient calling in to ask if Merced Hutchinson CNP is in office today and can review this prescription request. This nurse updated patient that provider is not in office today. PCP is also out this week. Patient requesting this request be sent to [facility] Roberts today and states Tell Gretchen that I need to have this medication It's the only thing that helps my cough. Patient requesting a call back with an update. [phone]. Thank you. * Telephone Encounter - Cara Hernandez LPN - 07/28/2024 10:33 AM EST Patient is still coughing and is requesting more cough syrup. [facility] Prescription Refill Information The patient has been identified by name and date of : Yes Caregiver verified no other encounters exist for this prescription request: Yes Caregiver confirmed with patient/requestor that no other refills are due, in the near future, with this provider at this time: Yes The last office visit in the department: 07/20/24 Does the patient have a future office visit with this provider/department: No Requested Prescriptions Pending Prescriptions Disp Refills HYDROcodone-homatropine (HYCODAN, WITH HOMATROPINE,) 5-1.5 mg/5 mL syrup 210 mL 0 Sig: Take 5 mL by mouth every 4 hours as needed for cough for up to 7 days. Cara Hernandez LPN July 28, 2024 10:36 AM documented in [facility]24 Telephone encounter Note * Telephone Encounter - Ivanna Torre RN - 07/28/2024 3:34 PM EST Patient returns call and notified medication was sent to [facility]. Patient requested to be transferred to schedule spirometry and lung volume testing. Disconnected line before getting transferred. Ivanna Torre RN [facility]-14[facility] Telephone encounter Note* Telephone Encounter - Gretchen Newton APRN.CNS - 07/28/2024 3:30 PM EST ok [facility]-14[facility] Telephone encounter Note* Telephone Encounter - Renetta Hernández RN - 07/28/2024 2:26 PM EST Patient calling in to ask if Merced Hutchinson CNP is in office today and can review this prescription request. This nurse updated patient that provider is not in office today. PCP is also out this week. Patient requesting this request be sent to [facility] Roberts today and states Tell Gretchen that I need to have this medication It's the only thing that helps my cough. Patient requesting a call back with an update. [phone]. Thank you. [facility] Telephone encounter Note* Telephone Encounter - Cara Hernandez LPN - 07/28/2024 10:33 AM EST Patient is still coughing and is requesting more cough syrup. [facility] [place] Prescription Refill Information The patient has been identified by name and date of : Yes Caregiver verified no other encounters exist for this prescription request: Yes Caregiver confirmed with patient/requestor that no other refills are due, in the near future, with this provider at this time: Yes The last office visit in the department: 07/20/24 Does the patient have a future office visit with this provider/department: No Requested Prescriptions Pending Prescriptions Disp Refills HYDROcodone-homatropine (HYCODAN, WITH HOMATROPINE,) 5-1.5 mg/5 mL syrup 210 mL 0 Sig: Take 5 mL by mouth every 4 hours as needed for cough for up to 7 days. Cara Hernandez LPN July 28, 2024 10:36 AM [facility]11-06-2024 NoteHNO ID: [id number] Author: SILVERIO HALEY MD Service: ? Author Type: Physician Type: Progress Notes Filed: 07/25/2024 22:06 Note Text: VIRTUAL VISIT PROGRESS NOTE This is a virtual visit using [employer] Video Visit. It required patient-provider interaction for the medical decision making as documented below. I have communicated my name and active licensure. The patient's identity and physical location were verified at the time of this visit. Either the patient or their legal client care representative has been informed of the risks and benefits of -- and alternatives to -- treatment through a remote evaluation and consents to proceed with the evaluation remotely. Sally Vargas is a 43 year old female seen for muscle relaxant need and cough ongoing. Sally Vargas is a 43-year-old female presenting with a request for muscle relaxant and ongoing cough. Sally reports a recent severe migraine that was atypical in intensity and symptoms. She describes the migraine as causing a sensation of her head being on fire and extremely tight, with significant pain preventing head movement and vision. She administered her usual migraine injection, which typically provides relief within minutes and allows her to sleep, but this time it was ineffective. She took a hot shower on the advice of a friend, which also did not provide relief. She then administered a second injection two hours after the first, which led to repeated emesis, approximately 10 episodes. She notes that this migraine was the worst she has experienced, stating, I've never had that problem, and that she has not had a migraine in almost two months. She attributes the recent migraine to increased stress, particularly due to the upcoming holidays and the loss of her mother two years ago. She has a history of using tizanidine, Flexeril, and baclofen for muscle relaxation, with Flexeril being the most effective. Sally also reports a persistent dry cough that occasionally produces phlegm. She has been using Advair and albuterol inhalers, but notes that the Advair seems to exacerbate the cough. The cough is causing chest and rib pain. She has been using Hikodan cough medicine, which provides some relief. She denies using albuterol before Advair. HISTORY REVIEWED (electronic chart updated): PAST MEDICAL HISTORY Diagnosis Date Allergic rhinitis, cause unspecified 05/17/2008 Spring and summer Benign liver cyst 05/24/2010 CT scan at [facility] 11/2009 and 04/2010 showe 4 mm increase in size. No pain. No elevated LFTs on 03/11/2010. Calculus of kidney 05/17/[address] Nicolas: Hospitalized age 20, and again later -- no procedures so far ([facility], [address] [facility]) Cancer (HCC) COVID-19 virus infection 10/07/202109/2021 Diverticulosis Dysmenorrhea Hemorrhoids History of blood transfusion Impaired fasting glucose 05/17/2008 Sugar 104 fasting, 04/21 Intractable nausea and vomiting 05/25/2020 Marijuana use 07/10/2020 ER visit 07/06/2020, [place] MIGRAINE 05/17/2008 Has used imitrex with good response; Keeps Vicodin on hand when needed; Ovarian cyst 07/15/2012 Pancreatitis Smoker 05/17/2008 Started age 26, 1/2 a PPD PAST SURGICAL HISTORY Procedure Laterality Date CHOLECYSTECTOMY HX COLONOSCOPY 05/08/2020 poor prep, stool in entire colon, int hemorrhoids, diverticulosis DILATION AND CURETTAGE DXAND/THER NONOBSTETRIC 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, mild esophagitis, 2 cm hiatal hernia EGD W/O BRSH SPEC VARICIES INJ 05/28/2020 LIG/TRNSXJ FLP TUBE ABDL/VAG APPR UNI/BI OOPHORECTOMY PARTIAL/TOTAL UNI/BI 2009 Oophorectomy right, still has left OOPHORECTOMY PARTIAL/TOTAL UNI/BI 01/2015 left removed PAST SURGICAL HISTORY OF uterine ablation PAST SURGICAL HISTORY OF cyst removal TOTAL ABDOMINAL HYSTERECT W/WO RMVL TUBE OVARY 08/31/2006 Hysterectomy, [facility] FAMILY HISTORY Problem Relation Age of Onset Thyroid Mother unsure of details Arthritis Mother fibromyalgia Blood Disease Mother blood clots, unsure of details (aorta?) No Known Problems Father No Known Problems Sister No Known Problems Sister No Known Problems Brother Diabetes Maternal Grandmother Diabetes Maternal Grandfather Lipids Maternal Grandfather Stroke Maternal Grandfather Coronary Artery Disease Maternal Grandfather Cataract Maternal Grandfather Pancreatic Cancer Maternal Grandfather Diabetes Paternal Grandmother Diabetes Paternal Grandfather Coronary Artery Disease Paternal Grandfather No Known Problems Son No Known Problems Son Breast Cancer Maternal Aunt Lipids Maternal Uncle Coronary Artery Disease Maternal Uncle other (ovarian ca) Other maternal cousin Colon Cancer No Family History Social History Tobacco Use Smoking status: Former Current packs/day: 0.00 Average packs/day: 0.5 packs/day for 3.0 years (1.5 ttl pk-yrs) Types: Cigarettes Start date: 01/12/2014 (more content not included)...[facility]11-06-2024 History of Present illness Narrative* Silverio Haley MD - 07/20/2024 12:07 PM EST VIRTUAL VISIT PROGRESS NOTE This is a virtual visit using [employer] Video Visit. It required patient- provider interaction for the medical decision making as documented below. I have communicated my name and active licensure. The patient's identity and physical location wereverified at the time of this visit. Either the patient or their legal client care representative has been informed of the risks and benefits of -- and alternatives to -- treatment through a remote evaluation andconsents to proceed with the evaluation remotely. Sally Gardinerashley is a 43 year old female seen for muscle relaxant need and cough ongoing. Sally Vargas is a 43-year-old female presenting with a request for muscle relaxant and ongoing cough. Sally reports a recent severe migraine that was atypical in intensity and symptoms. She describesthe migraine as causing a sensation of her head being on fire and extremely tight, with significant pain preventing head movement and vision. She administered her usual migraine injection, which typically provides relief within minutes and allows her to sleep, but this time it was ineffective. She took a hot shower on the advice of a friend, which also did not provide relief. She then administered a second injection two hours after the first, which led to repeated emesis, approximately 10 episodes. She notes that this migraine was the worst she has experienced, stating, I've never had that problem, and that she has not had a migraine in almost two months. She attributes the recent migraine to increased stress, particularly due to the upcoming holidays and the loss of her mother two years ago. She has a history of using tizanidine, Flexeril, and baclofen for muscle relaxation, with Flexeril being the most effective. Sally also reports a persistent dry cough that occasionally produces phlegm. She has been using Advair and albuterol inhalers, but notes that the Advair seems to exacerbate the cough. The cough is causing chest and rib pain. She has been using Hikodan cough medicine, which provides some relief. She denies using albuterol before Advair. HISTORY REVIEWED (electronic chart updated): PAST MEDICAL HISTORY Diagnosis Date Allergic rhinitis, cause unspecified 05/17/2008 Spring and summer Benign liver cyst 05/24/2010 CT scan at [facility] 11/2009 and 04/2010 showe 4 mm increase in size. No pain. No elevated LFTs on 03/11/2010. Calculus of kidney 05/17/[address] Nicolas: Hospitalized age 20, and again later -- no procedures so far ([facility], [address] [facility]) Cancer (HCC) COVID-19 virus infection 10/07/202109/2021 Diverticulosis Dysmenorrhea Hemorrhoids History of blood transfusion Impaired fasting glucose 05/17/2008 Sugar 104 fasting, 04/21 Intractable nausea and vomiting 05/25/2020 Marijuana use 07/10/2020 ER visit 07/06/2020, [place] MIGRAINE 05/17/2008 Has used imitrex with good response; Keeps Vicodin on hand when needed; Ovarian cyst 07/15/2012 Pancreatitis Smoker 05/17/2008 Started age 26, 1/2 a PPD 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, mild esophagitis, 2 cm hiatal hernia EGD W/O BRSH SPEC VARICIES INJ 05/28/2020 LIG/TRNSXJ FLP TUBE ABDL/VAG APPR UNI/BI OOPHORECTOMY PARTIAL/TOTAL UNI/BI 2009 Oophorectomy right, still has left OOPHORECTOMY PARTIAL/TOTAL UNI/BI 01/2015 left removed PAST SURGICAL HISTORY OF uterine ablation PAST SURGICAL HISTORY OF cyst removal TOTAL ABDOMINAL HYSTERECT W/WO RMVL TUBE OVARY 08/31/2006 Hysterectomy, [facility] FAMILY HISTORY Problem Relation Age of Onset Thyroid Mother unsure of details Arthritis Mother fibromyalgia Blood Disease Mother blood clots, unsure of details (aorta?) No Known Problems Father No Known Problems Sister No Known Problems Sister No Known Problems Brother Diabetes Maternal Grandmother Diabetes Maternal Grandfather Lipids Maternal Grandfather Stroke Maternal Grandfather Coronary Artery Disease Maternal Grandfather Cataract Maternal Grandfather Pancreatic Cancer Maternal Grandfather Diabetes Paternal Grandmother Diabetes Paternal Grandfather Coronary Artery Disease Paternal Grandfather No Known Problems Son No Known Problems Son Breast Cancer Maternal Aunt Lipids Maternal Uncle Coronary Artery Disease Maternal Uncle other (ovarian ca) Other maternal cousin Colon Cancer No Family History Social History Tobacco Use Smoking status: Former Current packs/day: 0.00 Average packs/day: 0.5 packs/day for 3.0 years (1.5 ttl pk-yrs) Types: Cigarettes Start date: 01/12/2014 Quit date: 01/12/2017 Years since quittin.5 Smokeless tobacco: Never Tobacco comments: 1/2 pack per day Vaping Use Vaping status: Never Used Substance Use Topics Alcohol use: Yes Comment: Occasional Drug use: Never Current Outpatient Medications Medication Sig fluticasone-salmeterol (WIXELA INHUB) 500-50 mcg/dose dsdv Inhale 1 Puff as instructed two times a day. fluticasone-salmeterol (WIXELA INHUB) 250-50 mcg/dose inhaler Inhale 1 Puff as instructed two timesa day. albuterol HFA (VENTOLIN HFA) 90 mcg/actuation inhaler Inhale 2 Puffs as instructed every 4 hours asneeded for wheezing/shortness of breath. Cholecalciferol, Vitamin D3, 50 mcg (2,000 unit) cap Take 1 capsule by mouth once daily. SUMAtriptan (IMITREX STATDOSE PEN) 6 mg/0.5 mL pen Inject 0.5 mL subcutaneously as needed for migraine headache (see administration instructions). May repeat dose after 1 hour if needed. Maximum daily dose is 12 mg per day. pantoprazole DR (PROTONIX) 40 mg tablet Take 1 tablet by mouth daily before breakfast. Take on empty stomach, 1/2 hr before meal. ARIPiprazole (ABILIFY) 10 mg tablet Take 10 mg by mouth once daily. hyoscyamine sulfate 0.125 mg ODT Take 0.125 mg by mouth every 4 hours. LORazepam (ATIVAN) 0.5 mg Take 0.5 mg by mouth once daily as needed. Mesalamine (LIALDA) 1.2 gram EC tablet Take 1,200 mg by mouth once daily. traZODone (DESYREL) 50 mg tablet Take 50 mg by mouth daily at bedtime. Psyllium Seed-Sucrose (METAMUCIL, SUGAR,) Take per package directions (Patient not taking: Reportedon 03/11/2024) promethazine (PHENERGAN) 25 mg tablet Take 1 tablet by mouth every 8 hours as needed for nausea/vomiting. sjauxr-dxqnhzzv-yhehjay (CREON 3) 3,000-9,500- 15,000 unit delayed release capsule Take 1 capsule by mouth three times a day with meals. gabapentin (NEURONTIN) 400 mg capsule Take 1 capsule by mouth every 12 hours. diphenhydrAMINE (BENADRYL) 25 mg capsule Take 50 mg by mouth at bedtime as needed. No current facility-administered medications for this visit. ALLERGIES Allergen Reactions Aspirin Unknown Penicillins Rash Cephalexin Itching Chlorhexidine Rash Skin rash Ciprofloxacin Rash Unclear if the pruritic areas of rash were related to medication or not, no prior use Iodinated Contrast * Anaphylaxis Toradol [Ketorolac] Rash Asa [Salicylates] Other: See Comments ulcers Contrast Dye [Iodin* Shortness of Breath Dicyclomine Hives Ibuprofen GI Upset REVIEW OF SYSTEMS: As noted in HPI PHYSICAL EXAMINATION: VIDEO EXAM: (if completed, performed via video enabled technology) GENERAL: alert and appropriate, in no distress, well-hydrated, well nourished, appears tired, and coughs occasionally HEAD: normocephalic, no abnormality or lesion noted RESPIRATORY: breathing non-labored ASSESSMENT and PLAN: # Subacute cough (R05.2) # Acute asthmatic bronchitis (J45.909) - Persistent dry cough with occasional phlegm production, associated with chest and rib pain. - Ordered pulmonary function tests, including nitrous oxide test to assess for inflammation. - Advised patient to withhold Advair and albuterol on the day of the pulmonary function tests. - Ordered chest X-ray to be performed at the specialty center. - Patient currently using Hikodan cough medicine and albuterol inhaler, which provides some relief. - Discussed potential bronchospasm; advised using albuterol inhaler prior to Advair to reduce airway reactivity. - If cough persists, consider referral to pulmonology. # Migraine without aura, not intractable, without status migrainosus (G43.009) - Recent severe migraine episode with associated tension, photophobia, and vomiting; atypical presentation compared to previous episodes. - History of effective treatment with injectable migraine medication. - Prescribed Flexeril 10 mg, to be taken up to three times daily as needed, with a total of 60 pills and one refill. Advised patient on potential sedative effects; recommended taking at bedtime or halving the dose if excessive drowsiness occurs. - Prescription sent to [facility] in [place]. There are no Patient Instructions on file for this visit. Silverio Haley MD [facility] Telephone encounter Note * Telephone Encounter - Sallie Benitez LPN - 07/20/2024 7:19 AM EST Appointment scheduled 07/20/24 at 10:40. Detailed message left for patient. [facility]11-06-2024 Miscellaneous Notes* Telephone Encounter - Sallie Benitez LPN - 07/20/2024 7:19 AM EST Appointment scheduled 07/20/24 at 10:40. Detailed message left for patient. * Telephone Encounter - Silverio Haley MD - 07/19/2024 8:37 PM EST There is an opening 07/20 at . Can discuss muscle relaxant then and whether to add * Telephone Encounter - Paradise Haley RN - 07/19/2024 12:00 PM EST Patient calls and states that she had a bad migraine last night. Patient reports that she gave herself a sumatriptan injection which usually works. Patient states that injection did not work. Patientstates that her head began pounding really bad. Patient states that she took a couple of Gabapentinwhich did not help at all. Patient states that she has nausea and has vomited due to headache. Patient states that she had talked to a friend who had told her that muscle relaxants might help. Patient is asking if provider can prescribe her some muscle relaxants for the headache that she has. Patient had requested a virtual appointment with provider. Please review and advise, Paradise Haley RN [facility] Telephone encounter Note * Telephone Encounter - Silverio Haley MD - 07/19/2024 8:37 PM EST There is an opening 07/20 at . Can discuss muscle relaxant then and whether to add [facility]11-05-2024 Telephone encounter Note* Telephone Encounter - Paradise Haley RN - 07/19/2024 12:00 PM EST Patient calls and states that she had a bad migraine last night. Patient reports that she gave herself a sumatriptan injection which usually works. Patient states that injection did not work. Patientstates that her head began pounding really bad. Patient states that she took a couple of Gabapentinwhich did not help at all. Patient states that she has nausea and has vomited due to headache. Patient states that she had talked to a friend who had told her that muscle relaxants might help. Patient is asking if provider can prescribe her some muscle relaxants for the headache that she has. Patient had requested a virtual appointment with provider. Please review and advise, Paradise Haley RN [facility]10-28-2024 NoteHNO ID: [id number] Author: SILVERIO HALEY MD Service: ? Author Type: Physician Type: Progress Notes Filed: 07/11/2024 17:33 Note Text: VIRTUAL VISIT PROGRESS NOTE This is a virtual visit using [employer] Video Visit. It required patient-provider interaction for the medical decision making as documented below. I have communicated my name and active licensure. The patient's identity and physical location were verified at the time of this visit. Either the patient or their legal client care representative has been informed of the risks and benefits of -- and alternatives to -- treatment through a remote evaluation and consents to proceed with the evaluation remotely. Sally Vargas is a 43 year old female seen for persistent cough. Sally Vargas is a 43-year-old female, with a history of chronic cough, presenting for persistent nocturnal cough and associated symptoms. Sally reports a persistent cough that is more pronounced at night, significantly disrupting her sleep, limiting her to approximately 2 hours of sleep per night. During the day, she experiences intermittent coughing, but it is less severe compared to nighttime. She has been using an air humidifier with Vicks and taking Robitussin with honey, but these measures have not provided sufficient relief. She is also using Advair 250/50 and albuterol inhalers, with albuterol being used before bedtime and throughout the night. Despite these treatments, her cough has worsened over the past week, particularly at night. She recently started a new job and was sent home due to excessive coughing. She has taken multiple COVID-19 tests, all of which have been negative. She reports coughing up yellow sputum, which she describes as slime-like, but denies chest pain. She notes soreness in her ribs from coughing. She denies wheezing, as confirmed by her boyfriend, and describes her cough as more of a dry cough. She denies post-nasal drip and has been taking Benadryl at night. She has been keeping her head elevated with pillows but reports that this has not alleviated her symptoms. She has been experiencing chills and sweating, particularly when the heat is off, but denies fevers, with her temperature readings being 97?F this morning and 98?F an hour ago. She has not smoked in almost 4 weeks due to her illness, despite her boyfriend smoking in the kitchen. She denies shortness of breath and is able to speak in full sentences. She has run out of Hycodan cough syrup, which had previously helped her sleep better by reducing her cough at night. HISTORY REVIEWED (electronic chart updated): PAST MEDICAL HISTORY Diagnosis Date Allergic rhinitis, cause unspecified 05/17/2008 Spring and summer Benign liver cyst 05/24/2010 CT scan at [facility] 11/2009 and 04/2010 showe 4 mm increase in size. No pain. No elevated LFTs on 03/11/2010. Calculus of kidney 05/17/[address] Nicolas: Hospitalized age 20, and again later -- no procedures so far ([facility], [address] [facility]) Cancer (HCC) COVID-19 virus infection 10/07/202109/2021 Diverticulosis Dysmenorrhea Hemorrhoids History of blood transfusion Impaired fasting glucose 05/17/2008 Sugar 104 fasting, 04/21 Intractable nausea and vomiting 05/25/2020 Marijuana use 07/10/2020 ER visit 07/06/2020, [place] MIGRAINE 05/17/2008 Has used imitrex with good response; Keeps Vicodin on hand when needed; Ovarian cyst 07/15/2012 Pancreatitis Smoker 05/17/2008 Started age 26, 1/2 a PPD PAST SURGICAL HISTORY Procedure Laterality Date CHOLECYSTECTOMY HX COLONOSCOPY 05/08/2020 poor prep, stool in entire colon, int hemorrhoids, diverticulosis DILATION AND CURETTAGE DXAND/THER NONOBSTETRIC 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, mild esophagitis, 2 cm hiatal hernia EGD W/O BRSH SPEC VARICIES INJ 05/28/2020 LIG/TRNSXJ FLP TUBE ABDL/VAG APPR UNI/BI OOPHORECTOMY PARTIAL/TOTAL UNI/BI 2009 Oophorectomy right, still has left OOPHORECTOMY PARTIAL/TOTAL UNI/BI 01/2015 left removed PAST SURGICAL HISTORY OF uterine ablation PAST SURGICAL HISTORY OF cyst removal TOTAL ABDOMINAL HYSTERECT W/WO RMVL TUBE OVARY 08/31/2006 Hysterectomy, [facility] FAMILY HISTORY Problem Relation Age of Onset Thyroid Mother unsure of details Arthritis Mother fibromyalgia Blood Disease Mother blood clots, unsure of details (aorta?) No Known Problems Father No Known Problems Sister No Known Problems Sister No Known Problems Brother Diabetes Maternal Grandmother Diabetes Maternal Grandfather Lipids Maternal Grandfather Stroke Maternal Grandfather Coronary Artery Disease Maternal Grandfather Cataract Maternal Grandfather Pancreatic Cancer Maternal Grandfather Diabetes Paternal Grandmother Diabetes Paternal Grandfather Coronary Artery Disease Paternal Grandfather No Known Problems Son No Known Problems Son Breast Cancer Maternal Aunt Lipids Maternal Uncle Coronary Arter (more content not included)...[facility] 07-11-2024 History of Present illness Narrative* Silverio Haley MD - 07/11/2024 5:02 PM EDT VIRTUAL VISIT PROGRESS NOTE This is a virtual visit using momondohart Zoom Video Visit. It required patient- provider interaction for the medical decision making as documented below. I have communicated my name and active licensure. The patient's identity and physical location wereverified at the time of this visit. Either the patient or their legal client care representative has been informed of the risks and benefits of -- and alternatives to -- treatment through a remote evaluation andconsents to proceed with the evaluation remotely. Sally Vargas is a 43 year old female seen for persistent cough. Sally Vargas is a 43-year-old female, with a history of chronic cough, presenting for persistentnocturnal cough and associated symptoms. Sally reports a persistent cough that is more pronouncedat night, significantly disrupting her sleep, limiting her to approximately 2 hours of sleep per night. During the day, she experiences intermittent coughing, but it is less severe compared to nighttime. She has been using an air humidifier with Vicks and taking Robitussin with honey, but these measures have not provided sufficient relief. She is also using Advair 250/50 and albuterol inhalers, with albuterol being used before bedtime and throughout the night. Despite these treatments, her cough has worsened over the past week, particularly at night. She recently started a new job and was sent home due to excessive coughing. She has taken multiple COVID-19 tests, all of which have been negative. She reports coughing up yellow sputum, which she describes as slime-like, but denies chest pain. She notes soreness in her ribs from coughing. She denies wheezing, as confirmed by her boyfriend, and describes her cough as more of a dry cough. She denies post-nasal drip and has been taking Benadryl at night. She has been keeping her head elevated with pillows but reports that this has not alleviated her symptoms. She has been experiencing chills and sweating, particularly when the heat is off, but denies fevers, with her temperature readings being 97 F this morning and 98 F an hour ago. She has not smoked in almost 4 weeks due to her illness, despite her boyfriend smoking in the kitchen. She denies shortness of breath and is able to speak in full sentences. She has run out of Hycodan cough syrup, which had previously helped her sleep better by reducing her cough at night. HISTORY REVIEWED (electronic chart updated): PAST MEDICAL HISTORY Diagnosis Date Allergic rhinitis, cause unspecified 05/17/2008 Spring and summer Benign liver cyst 05/24/2010 CT scan at [facility] 11/2009 and 04/2010 showe 4 mm increase in size. No pain. No elevated LFTs on 03/11/2010. Calculus of kidney 05/17/[address] Nicolas: Hospitalized age 20, and again later -- no procedures so far ([facility], [address] [facility]) Cancer (HCC) COVID-19 virus infection 10/07/202109/2021 Diverticulosis Dysmenorrhea Hemorrhoids History of blood transfusion Impaired fasting glucose 05/17/2008 Sugar 104 fasting, 04/21 Intractable nausea and vomiting 05/25/2020 Marijuana use 07/10/2020 ER visit 07/06/2020, [place] MIGRAINE 05/17/2008 Has used imitrex with good response; Keeps Vicodin on hand when needed; Ovarian cyst 07/15/2012 Pancreatitis Smoker 05/17/2008 Started age 26, 1/2 a PPD 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, mild esophagitis, 2 cm hiatal hernia EGD W/O BRSH SPEC VARICIES INJ 05/28/2020 LIG/TRNSXJ FLP TUBE ABDL/VAG APPR UNI/BI OOPHORECTOMY PARTIAL/TOTAL UNI/BI 2009 Oophorectomy right, still has left OOPHORECTOMY PARTIAL/TOTAL UNI/BI 01/2015 left removed PAST SURGICAL HISTORY OF uterine ablation PAST SURGICAL HISTORY OF cyst removal TOTAL ABDOMINAL HYSTERECT W/WO RMVL TUBE OVARY 08/31/2006 Hysterectomy, MICHELINE FAMILY HISTORY Problem Relation Age of Onset Thyroid Mother unsure of details Arthritis Mother fibromyalgia Blood Disease Mother blood clots, unsure of details (aorta?) No Known Problems Father No Known Problems Sister No Known Problems Sister No Known Problems Brother Diabetes Maternal Grandmother Diabetes Maternal Grandfather Lipids Maternal Grandfather Stroke Maternal Grandfather Coronary Artery Disease Maternal Grandfather Cataract Maternal Grandfather Pancreatic Cancer Maternal Grandfather Diabetes Paternal Grandmother Diabetes Paternal Grandfather Coronary Artery Disease Paternal Grandfather No Known Problems Son No Known Problems Son Breast Cancer Maternal Aunt Lipids Maternal Uncle Coronary Artery Disease Maternal Uncle other (ovarian ca) Other maternal cousin Colon Cancer No Family History Social History Tobacco Use Smoking status: Every Day Current packs/day: 0.00 Average packs/day: 0.5 packs/day for 3.0 years (1.5 ttl pk-yrs) Types: Cigarettes Start date: 01/12/2014 Last attempt to quit: 01/12/2017 Years since quittin.4 Smokeless tobacco: Never Tobacco comments: 1/2 pack per day Vaping Use Vaping status: Never Used Substance Use Topics Alcohol use: Yes Comment: Occasional Drug use: Never Current Outpatient Medications Medication Sig fluticasone-salmeterol (WIXELA INHUB) 250-50 mcg/dose inhaler Inhale 1 Puff as instructed two timesa day. albuterol HFA (VENTOLIN HFA) 90 mcg/actuation inhaler Inhale 2 Puffs as instructed every 4 hours asneeded for wheezing/shortness of breath. Cholecalciferol, Vitamin D3, 50 mcg (2,000 unit) cap Take 1 capsule by mouth once daily. Leg Brace (ANKLE BRACE) misc For left ankle. SUMAtriptan (IMITREX STATDOSE PEN) 6 mg/0.5 mL pen Inject 0.5 mL subcutaneously as needed for migraine headache (see administration instructions). May repeat dose after 1 hour if needed. Maximum daily dose is 12 mg per day. pantoprazole DR (PROTONIX) 40 mg tablet Take 1 tablet by mouth daily before breakfast. Take on empty stomach, 1/2 hr before meal. ARIPiprazole (ABILIFY) 10 mg tablet Take 10 mg by mouth once daily. hyoscyamine sulfate 0.125 mg ODT Take 0.125 mg by mouth every 4 hours. LORazepam (ATIVAN) 0.5 mg Take 0.5 mg by mouth once daily as needed. Mesalamine (LIALDA) 1.2 gram EC tablet Take 1,200 mg by mouth once daily. traZODone (DESYREL) 50 mg tablet Take 50 mg by mouth daily at bedtime. cetirizine (ZYRTEC) 10 mg tablet Take 1 tablet by mouth once daily. for itching. (Patient not taking: Reported on 03/11/2024) Psyllium Seed-Sucrose (METAMUCIL, SUGAR,) Take per package directions (Patient not taking: Reportedon 03/11/2024) promethazine (PHENERGAN) 25 mg tablet Take 1 tablet by mouth every 8 hours as needed for nausea/vomiting. mrcdlo-dvonfert-qkbijpe (CREON 3) 3,000-9,500- 15,000 unit delayed release capsule Take 1 capsule by mouth three times a day with meals. gabapentin (NEURONTIN) 400 mg capsule Take 1 capsule by mouth every 12 hours. cyanocobalamin (VITAMIN B-12) 1,000 mcg tab Take 1 tablet by mouth once daily. (Patient not taking:Reported on 01/01/2024) diphenhydrAMINE (BENADRYL) 25 mg capsule Take 50 mg by mouth at bedtime as needed. No current facility-administered medications for this visit. ALLERGIES Allergen Reactions Aspirin Unknown Penicillins Rash Cephalexin Itching Chlorhexidine Rash Skin rash Ciprofloxacin Rash Unclear if the pruritic areas of rash were related to medication or not, no prior use Iodinated Contrast * Anaphylaxis Toradol [Ketorolac] Rash Asa [Salicylates] Other: See Comments ulcers Contrast Dye [Iodin* Shortness of Breath Dicyclomine Hives Ibuprofen GI Upset REVIEW OF SYSTEMS: Constitutional: (+) chills, (+) sweating, (-) fever Ears/Nose/Mouth/Throat: (-) post nasal drip Cardiovascular: (-) chest pain Respiratory: (+) cough worse at night, (+) phlegm (yellow), (-) wheezing, (-) shortness of breath Gastrointestinal: (-) heartburn Musculoskeletal: (+) rib soreness Neurological: (-) headaches Psychiatric: (+) sleep disturbance PHYSICAL EXAMINATION: VIDEO EXAM: (if completed, performed via video enabled technology) GENERAL: alert and appropriate, in no distress, well-hydrated, well nourished, and happy, smiling, interactive HEAD: normocephalic, no abnormality or lesion noted EYES: no injection and visual acuity is grossly normal RESPIRATORY: breathing non-labored and frequent cough but very productive sounding or tight; speaking in full sentences. EXTREMITIES: No cynaosis of hands ASSESSMENT and PLAN: # Subacute cough (R05.2) # Acute asthmatic bronchitis (J45.909) - Persistent nocturnal cough with production of yellow sputum; no wheezing or significant dyspnea reported. - Current medications include Advair 250/50 mcg BID and albuterol inhaler prn. - Increased Advair to 500/50 mcg BID to enhance anti-inflammatory effects. - Refilled Hycodan cough syrup to aid in symptom relief and improve sleep quality. - Advised continuation of albuterol inhaler use before bedtime and prn for bronchospasm. - Monitor symptoms and provide progress report in two weeks; if no improvement, consider further diagnostic testing including chest X-ray and pulmonary function tests. # History of cigarette smoking (Z87.891) - Has not smoked in approximately four weeks; no nicotine withdrawal symptoms reported. - Encouraged continued abstinence from smoking to prevent exacerbation of respiratory symptoms and to stay quit. Silverio Haley MD [facility] Tele[facility] encounter Note * Telephone Encounter - Ivanna Torre RN - 06/28/2024 4:48 PM EDT See previous TE. Medication to be filled on 06/30/2024 as previously ordered. Ivanna Torre RN [facility] Miscellaneous Notes* Telephone Encounter - Ivanna Torre RN - 06/28/2024 4:48 PM EDT See previous TE. Medication to be filled on 06/30/2024 as previously ordered. Ivanna Torre RN * Telephone Encounter - Renetta Hernández RN - 06/28/2024 4:30 PM EDT Patient reports her hydrocodone-homatropine cough syrup was last ordered for the dates of 06/21/24 to 06/28/24 and she has 1 dose left and will be out. New hydrocodone-homatropine cough syrup prescription is to start on 06/30/24. Patient asking if the date on the new prescription can be changed to 06/29/24? Please call patient with update at [phone]. Thank you. [facility] Telephone encounter Note * Telephone Encounter - Ivanna Torre RN - 06/28/2024 4:47 PM EDT Patient returns call and notified of below. Patient verbalizes understanding. Aware prescription can be picked up on 06/30/2024. Ivanna Torre RN [facility] Miscellaneous Notes* Telephone Encounter - Ivanna Torre RN - 06/28/2024 4:47 PM EDT Patient returns call and notified of below. Patient verbalizes understanding. Aware prescription can be picked up on 06/30/2024. Ivanna Torre RN * Telephone Encounter - Silverio Haley MD - 06/28/2024 3:44 PM EDT RX to last 7 days May fill when due for refilling on The following approved medication requests have been transmitted electronically. Requested Prescriptions Signed Prescriptions Disp Refills HYDROcodone-homatropine (HYCODAN, WITH HOMATROPINE,) 5-1.5 mg/5 mL syrup 210 mL 0 Sig: Take 5 mL by mouth every 4 hours as needed for cough for up to 7 days. Patient should start onJune 30, 2024. Authorizing Provider: SILVERIO HALEY MD * Telephone Encounter - Brittnee Barraza LPN - 06/28/2024 3:36 PM EDT Patient aware PCP to address. Brittnee Barraza LPN * Telephone Encounter - Brittnee Barraza LPN - 06/28/2024 3:13 PM EDT Made copy of TE and placed on Urgent clipboard to bring to PCP attention. Brittnee Barraza LPN * Telephone Encounter - Paradise Haley RN - 06/28/2024 1:53 PM EDT Patient calls to see the status of prescription request. Paradise Haley RN * Telephone Encounter - Edwina Tatum LPN - 06/28/2024 12:34 PM EDT Pt called back in to check on status of rx. Edwina Tatum LPN * Telephone Encounter - Whit Guardado LPN - 06/28/2024 10:23 AM EDT Patient calling back to check status of request. she uses [facility] for her pharmacy. * Telephone Encounter - Edwina Tatum LPN - 06/27/2024 4:18 PM EDT Pt had appt : 06/21/24. Pt calls to report her cough is not getting much better. Pt feels cough syrup is helping some but she is about out of medication. Pt reports she has been taking cough syrup as directed. Pt is asking if she can have a refill on Hycodan with Homatropine cough syrup. Pt has no other complaints. Call pt with 's message. [facility] Telephone encounter Note * Telephone Encounter - Renetta Hernández RN - 06/28/2024 4:30 PM EDT Patient reports her hydrocodone-homatropine cough syrup was last ordered for the dates of 06/21/24 to 06/28/24 and she has 1 dose left and will be out. New hydrocodone-homatropine cough syrup prescription is to start on 06/30/24. Patient asking if the date on the new prescription can be changed to 06/29/24? Please call patient with update at [phone]. Thank you. [facility] Telephone encounter Note* Telephone Encounter - Silverio Haley MD - 06/28/2024 3:44 PM EDT RX to last 7 days May fill when due for refilling on The following approved medication requests have been transmitted electronically. Requested Prescriptions Signed Prescriptions Disp Refills HYDROcodone-homatropine (HYCODAN, WITH HOMATROPINE,) 5-1.5 mg/5 mL syrup 210 mL 0 Sig: Take 5 mL by mouth every 4 hours as needed for cough for up to 7 days. Patient should start onJune 30, 2024. Authorizing Provider: SILVERIO HALEY MD [facility] Telephone encounter Note* Telephone Encounter - Brittnee Barraza LPN - 06/28/2024 3:36 PM EDT Patient aware PCP to address. Brittnee Barraza LPN [facility] Telephone encounter Note* Telephone Encounter - Brittnee Barraza LPN - 06/28/2024 3:13 PM EDT Made copy of TE and placed on Urgent clipboard to bring to PCP attention. Brittnee Barraza LPN [facility] Telephone encounter Note* Telephone Encounter - Paradise Haley RN - 06/28/2024 1:53 PM EDT Patient calls to see the status of prescription request. Paradise Haley RN [facility] Telephone encounter Note* Telephone Encounter - Edwina Tatum LPN - 06/28/2024 12:34 PM EDT Pt called back in to check on status of rx. Edwina Tatum LPN [facility] Telephone encounter Note* Telephone Encounter - Whit Guardado LPN - 06/28/2024 10:23 AM EDT Patient calling back to check status of request. she uses [facility] for her pharmacy. [facility] Telephone encounter Note* Telephone Encounter - Edwina Tatum LPN - 06/27/2024 4:18 PM EDT Pt had appt : 06/21/24. Pt calls to report her cough is not getting much better. Pt feels cough syrup is helping some but she is about out of medication. Pt reports she has been taking cough syrup as directed. Pt is asking if she can have a refill on Hycodan with Homatropine cough syrup. Pt has no other complaints. Call pt with 's message. [facility] Instructions* Patient Instructions* Silverio Haley MD - 06/21/2024 5:32 PM EDT - I have prescribed a new inhaler, Wixela Inhub (fluticasone/salmeterol), to help reduce inflammation and keep your airways open. Use one puff twice daily. You can continue using your albuterol inhaler as needed, but the new inhaler should help reduce the frequency of use. - I have prescribed a new cough medicine, Hycodan (hydrocodone/homatropine), to help control your cough. Take 5 mL every 6 hours as needed. Discontinue the codeine cough syrup as it was not effective. - Monitor for any development of fevers or chills. If you experience severe symptoms such as high fever, chills, or difficulty breathing, seek emergency medical care. - Consider using home remedies such as rest, chicken soup, and hot teas to help soothe your cough. Continue using your vaporizer at night to help open up your nasal passages and prevent mouth breathing, which can trigger coughing. [facility] History of Present illness Narrative* Silverio Haley MD - 06/21/2024 5:03 PM EDT VIRTUAL VISIT PROGRESS NOTE This is a virtual visit using momondohart Zoom Video Visit. It required patient- provider interaction for the medical decision making as documented below. I have communicated my name and active licensure. The patient's identity and physical location wereverified at the time of this visit. Either the patient or their legal client care representative has been informed of the risks and benefits of -- and alternatives to -- treatment through a remote evaluation andconsents to proceed with the evaluation remotely. Sally Vargas is a 43 year old female seen for cough. The patient is a 43-year-old female, with a history of prior episodes of bronchitis, presenting with a persistent cough and associated symptoms from current infection with bronchitis. The patient reports a persistent cough that has progressed to involve her chest, resembling previous episodes of bronchitis. She was initially evaluated on 06/15 and again on 06/16 due to worsening symptoms, includingthe production of purulent sputum. She was prescribed a Z-Jo and prednisone 40 mg for 4 days, which she completed yesterday, but reports no improvement in symptoms. She is using an albuterol inhalerevery 4 hours, which provides temporary relief. She also reports cephalalgia exacerbated by coughing, thermoregulatory instability with hot and cold sensations, and wheezing. She denies documented fevers and has taken multiple COVID-19 tests, all of which were negative. She was also prescribed codeine cough syrup, which she reports was ineffective. The patient has a history of smoking approximately 1/4 to 1/2 pack per day but has abstained for the past 3 days due to her symptoms. She has a history of smoking cessation attempts, with the most recent attempt in January, but resumed smoking at an unspecified date. HISTORY REVIEWED (electronic chart updated): PAST MEDICAL HISTORY Diagnosis Date Allergic rhinitis, cause unspecified 05/17/2008spring and summer Benign liver cyst 05/24/2010 CT scan at [facility] 11/2009 and 04/2010 showe 4 mm increase in size. No pain. No elevated LFTs on 03/11/2010. Calculus of kidney 05/17/[address] Nicolas: Hospitalized age 20, and again later -- no procedures so far ([facility] [address] [facility] Cancer (HCC) COVID-19 virus infection 10/07/202109/2021 Diverticulosis Dysmenorrhea Hemorrhoids History of blood transfusion Impaired fasting glucose 05/17/2008 Sugar 104 fasting, 04/21 Intractable nausea and vomiting 05/25/2020 Marijuana use 07/10/2020 ER visit 07/06/2020, [place] MIGRAINE 05/17/2008 Has used imitrex with good response; Keeps Vicodin on hand when needed; Ovarian cyst 07/15/2012 Pancreatitis Smoker 05/17/2008 Started age 26, 1/2 a PPD 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, mild esophagitis, 2 cm hiatal hernia EGD W/O [facility] SPEC VARICIES INJ 05/28/2020 LIG/TRNSXJ FLP TUBE ABDL/VAG APPR UNI/BI OOPHORECTOMY PARTIAL/TOTAL UNI/BI 2009 Oophorectomy right, still has left OOPHORECTOMY PARTIAL/TOTAL UNI/BI 01/2015 left removed PAST SURGICAL HISTORY OF uterine ablation PAST SURGICAL HISTORY OF cyst removal TOTAL ABDOMINAL HYSTERECT W/WO RMVL TUBE OVARY 08/31/2006 Hysterectomy, [facility]LINE FAMILY HISTORY Problem Relation Age of Onset Thyroid Mother unsure of details Arthritis Mother fibromyalgia Blood Disease Mother blood clots, unsure of details (aorta?) No Known Problems Father No Known Problems Sister No Known Problems Sister No Known Problems Brother Diabetes Maternal Grandmother Diabetes Maternal Grandfather Lipids Maternal Grandfather Stroke Maternal Grandfather Coronary Artery Disease Maternal Grandfather Cataract Maternal Grandfather Pancreatic Cancer Maternal Grandfather Diabetes Paternal Grandmother Diabetes Paternal Grandfather Coronary Artery Disease Paternal Grandfather No Known Problems Son No Known Problems Son Breast Cancer Maternal Aunt Lipids Maternal Uncle Coronary Artery Disease Maternal Uncle other (ovarian ca) Other maternal cousin Colon Cancer No Family History Social History Tobacco Use Smoking status: Every Day Current packs/day: 0.00 Average packs/day: 0.5 packs/day for 3.0 years (1.5 ttl pk-yrs) Types: Cigarettes Start date: 01/12/2014 Last attempt to quit: 01/12/2017 Years since quittin.4 Smokeless tobacco: Never Tobacco comments: 1/2 pack per day Vaping Use Vaping status: Never Used Substance Use Topics Alcohol use: Yes Comment: Occasional Drug use: Never Current Outpatient Medications Medication Sig albuterol HFA (VENTOLIN HFA) 90 mcg/actuation inhaler Inhale 2 Puffs as instructed every 4 hours asneeded for wheezing/shortness of breath. codeine-guaiFENesin (GUAIFENESIN AC) 10-100 mg/5 mL syrup Take 10 mL by mouth three times a day as needed for cough for up to 7 days. Cholecalciferol, Vitamin D3, 50 mcg (2,000 unit) cap Take 1 capsule by mouth once daily. Leg Brace (ANKLE BRACE) misc For left ankle. SUMAtriptan (IMITREX STATDOSE PEN) 6 mg/0.5 mL pen Inject 0.5 mL subcutaneously as needed for migraine headache (see administration instructions). May repeat dose after 1 hour if needed. Maximum daily dose is 12 mg per day. pantoprazole DR (PROTONIX) 40 mg tablet Take 1 tablet by mouth daily before breakfast. Take on empty stomach, 1/2 hr before meal. ARIPiprazole (ABILIFY) 10 mg tablet Take 10 mg by mouth once daily. hyoscyamine sulfate 0.125 mg ODT Take 0.125 mg by mouth every 4 hours. LORazepam (ATIVAN) 0.5 mg Take 0.5 mg by mouth once daily as needed. Mesalamine (LIALDA) 1.2 gram EC tablet Take 1,200 mg by mouth once daily. traZODone (DESYREL) 50 mg tablet Take 50 mg by mouth daily at bedtime. cetirizine (ZYRTEC) 10 mg tablet Take 1 tablet by mouth once daily. for itching. (Patient not taking: Reported on 03/11/2024) Psyllium Seed-Sucrose (METAMUCIL, SUGAR,) Take per package directions (Patient not taking: Reportedon 03/11/2024) promethazine (PHENERGAN) 25 mg tablet Take 1 tablet by mouth every 8 hours as needed for nausea/vomiting. fektdj-vmmwfdir-hdkqhlp (CREON 3) 3,000-9,500- 15,000 unit delayed release capsule Take 1 capsule by mouth three times a day with meals. gabapentin (NEURONTIN) 400 mg capsule Take 1 capsule by mouth every 12 hours. cyanocobalamin (VITAMIN B-12) 1,000 mcg tab Take 1 tablet by mouth once daily. (Patient not taking:Reported on 01/01/2024) diphenhydrAMINE (BENADRYL) 25 mg capsule Take 50 mg by mouth at bedtime as needed. No current facility-administered medications for this visit. ALLERGIES Allergen Reactions Aspirin Unknown Penicillins Rash Cephalexin Itching Chlorhexidine Rash Skin rash Ciprofloxacin Rash Unclear if the pruritic areas of rash were related to medication or not, no prior use Iodinated Contrast * Anaphylaxis Toradol [Ketorolac] Rash Asa [Salicylates] Other: See Comments ulcers Contrast Dye [Iodin* Shortness of Breath Dicyclomine Hives Ibuprofen GI Upset REVIEW OF SYSTEMS: As noted in HPI PHYSICAL EXAMINATION: VIDEO EXAM: (if completed, performed via video enabled technology) GENERAL: alert and appropriate, in no distress, well-hydrated, well nourished, appears tired, and coughing frequently HEAD: normocephalic, no abnormality or lesion noted EYES: no injection and visual acuity is grossly normal RESPIRATORY: breathing non-labored ASSESSMENT and PLAN: # Acute asthmatic bronchitis (J45.909) - Persistent cough with wheezing and purulent sputum production; no improvement with previous antibiotics or prednisone 40 mg for 4 days. - Initiated Advair (fluticasone/salmeterol) inhaler, one puff BID; prescription sent to [facility]. - Discontinued codeine cough syrup due to lack of efficacy. - Prescribed Hikodan syrup, 5 mL q6h prn. - Advised continued use of albuterol inhaler prn; discussed proper inhalation technique and use of a spacer. - Educated on the importance of controlling bronchospasm to reduce coughing spells. - Advised to monitor for any fevers, chills, or difficulty breathing and to seek emergency care if symptoms worsen. # Cigarette smoker (F17.210) - Has not smoked for the past three days due to severity of symptoms. - Encouraged to use this period as an opportunity to quit smoking permanently. There are no Patient Instructions on file for this visit. Silverio Haley MD [facility] NoteHNO ID: [id number] Author: SILVERIO HALEY MD Service: ? Author Type: Physician Type: Progress Notes Filed: 06/21/2024 17:35 Note Text: VIRTUAL VISIT PROGRESS NOTE This is a virtual visit using [employer] Zoom Video Visit. It required patient-provider interaction for the medical decision making as documented below. I have communicated my name and active licensure. The patient's identity and physical location were verified at the time of this visit. Either the patient or their legal client care representative has been informed of the risks and benefits of -- and alternatives to -- treatment through a remote evaluation and consents to proceed with the evaluation remotely. Sally Vargas is a 43 year old female seen for cough. The patient is a 43-year-old female, with a history of prior episodes of bronchitis, presenting with a persistent cough and associated symptoms from current infection with bronchitis. The patient reports a persistent cough that has progressed to involve her chest, resembling previous episodes of bronchitis. She was initially evaluated on 06/15 and again on 06/16 due to worsening symptoms, including the production of purulent sputum. She was prescribed a Z-Jo and prednisone 40 mg for 4 days, which she completed yesterday, but reports no improvement in symptoms. She is using an albuterol inhaler every 4 hours, which provides temporary relief. She also reports cephalalgia exacerbated by coughing, thermoregulatory instability with hot and cold sensations, and wheezing. She denies documented fevers and has taken multiple COVID-19 tests, all of which were negative. She was also prescribed codeine cough syrup, which she reports was ineffective. The patient has a history of smoking approximately 1/4 to 1/2 pack per day but has abstained for the past 3 days due to her symptoms. She has a history of smoking cessation attempts, with the most recent attempt in January, but resumed smoking at an unspecified date. HISTORY REVIEWED (electronic chart updated): PAST MEDICAL HISTORY Diagnosis Date Allergic rhinitis, cause unspecified 05/17/2008spring and summer Benign liver cyst 05/24/2010 CT scan at [facility] 11/2009 and 04/2010 showe 4 mm increase in size. No pain. No elevated LFTs on 03/11/2010. Calculus of kidney 05/17/[address] Nicolas: Hospitalized age 20, and again later -- no procedures so far ([facility], most, [address] [facility]) Cancer (HCC) COVID-19 virus infection 10/07/202109/2021 Diverticulosis Dysmenorrhea Hemorrhoids History of blood transfusion Impaired fasting glucose 05/17/2008 Sugar 104 fasting, 04/21 Intractable nausea and vomiting 05/25/2020 Marijuana use 07/10/2020 ER visit 07/06/2020, [place] [facility] 05/17/2008 Has used imitrex with good response; Keeps Vicodin on hand when needed; Ovarian cyst 07/15/2012 Pancreatitis Smoker 05/17/2008 Started age 26, 1/2 a PPD PAST SURGICAL HISTORY Procedure Laterality Date CHOLECYSTECTOMY HX COLONOSCOPY 05/08/2020 poor prep, stool in entire colon, int hemorrhoids, diverticulosis DILATION AND CURETTAGE DXAND/THER NONOBSTETRIC 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, mild esophagitis, 2 cm hiatal hernia EGD W/O [facility] SPEC VARICIES INJ 05/28/2020 LIG/TRNSXJ FLP TUBE ABDL/VAG APPR UNI/BI OOPHORECTOMY PARTIAL/TOTAL UNI/BI 2009 Oophorectomy right, still has left OOPHORECTOMY PARTIAL/TOTAL UNI/BI 01/2015 left removed PAST SURGICAL HISTORY OF uterine ablation PAST SURGICAL HISTORY OF cyst removal TOTAL ABDOMINAL HYSTERECT W/WO RMVL TUBE OVARY 08/31/2006 Hysterectomy, [facility] FAMILY HISTORY Problem Relation Age of Onset Thyroid Mother unsure of details Arthritis Mother fibromyalgia Blood Disease Mother blood clots, unsure of details (aorta?) No Known Problems Father No Known Problems Sister No Known Problems Sister No Known Problems Brother Diabetes Maternal Grandmother Diabetes Maternal Grandfather Lipids Maternal Grandfather Stroke Maternal Grandfather Coronary Artery Disease Maternal Grandfather Cataract Maternal Grandfather Pancreatic Cancer Maternal Grandfather Diabetes Paternal Grandmother Diabetes Paternal Grandfather Coronary Artery Disease Paternal Grandfather No Known Problems Son No Known Problems Son Breast Cancer Maternal Aunt Lipids Maternal Uncle Coronary Artery Disease Maternal Uncle other (ovarian ca) Other maternal cousin Colon Cancer No Family History Social History Tobacco Use Smoking status: Every Day Current packs/day: 0.00 Average packs/day: 0.5 packs/day for 3.0 years (1.5 ttl pk-yrs) Types: Cigarettes Start date: 01/12/2014 Last attempt to quit: 01/12/2017 Years since quittin.4 Smokeless tobacco: Never Tobacco comments: 1/2 pack per day Vaping Use Vaping status: Never Used Substance Use Topics Alcohol use: Yes Comment: Occasional Drug use: Never Current Outpatient Medications Medication Sig al (more content not included)...[facility]10-07-2024 Telephone encounter Note* Telephone Encounter - Kristen Andrade LPN - 06/20/2024 4:44 PM EDT No answer. Left providers message and ask to call office and ask to speak to a nurse with any questions or concerns [facility]10-[facility]-2024 Miscellaneous Notes* Telephone Encounter - Kristen Andrade LPN - 06/20/2024 4:44 PM EDT No answer. Left providers message and ask to call office and ask to speak to a nurse with any questions or concerns * Telephone Encounter - Gretchen Newton APRN.CNS - 06/20/2024 4:35 PM EDT She can take an tnom-app-igeawbc cough medicine such as delsym and take Benadryl if she would like.Notes she declines to be seen due to transportation. Did she need to speak with social work regarding transportation? * Telephone Encounter - Paradise Haley RN - 06/20/2024 3:31 PM EDT Patient calls back and notified of below. Patient states that she needs cough medicine with benadryl. Patient reports that she is allergic to benzonatate. Patient states that she has been using inhaler every 4 hours and it has not helped. Advised patient that she needs to be seen in office so that she can be evaluated there. Patient states that she cannot come into office because she does not have a ride. Advised patient that she can go to an urgent care to be evaluated. Patient states that shecannot do this. Please review and advise, Paradise Haley RN * Telephone Encounter - Gretchen Newton APRN.CNS - 06/20/2024 3:08 PM EDT If she is not currently using albuterol inhaler every 6 hours would recommend doing so. Can add benzonatate to current medications. She has had 2 virtual visits for upper respiratory infection. She may want to come in to be checkedin the office. * Telephone Encounter - Edwina Tatum LPN - 06/20/2024 2:41 PM EDT Pt had a video appt on 06/16/24 for cough, chest congestion. Pt was prescribed: Zpak - finished yesterday Prednisone-finished today Codeine-guaifenesin cough syrup-pt reports it does not help with cough or sleep Abulterol inhaler-helps with the wheezing. Pt reports she still has a lot of chest congestion and cough. Pt reports she only got three hours of sleep last night because of coughing. Pt reports she has tried taking Mucinex to see if that helpsbut it is not. Pt is asking if she needs more atb or if there is a different/stronger cough medicine that she could be prescribed so she could get some sleep. Pt denies fever and SOB. Please review and advise. Edwina Tatum LPN documented in [facility]Kn[facility]10-[facility]24 Telephone encounter Note * Telephone Encounter - Gretchen Newton APRN.GARCIA - 06/20/2024 4:35 PM EDT She can take an fhlx-wwj-uwyzbdb cough medicine such as delsym and take Benadryl if she would like.Notes she declines to be seen due to transportation. Did she need to speak with social work regarding transportation? [facility] Telephone encounter Note* Telephone Encounter - Paradise Haley RN - 06/20/2024 3:31 PM EDT Patient calls back and notified of below. Patient states that she needs cough medicine with benadryl. Patient reports that she is allergic to benzonatate. Patient states that she has been using inhaler every 4 hours and it has not helped. Advised patient that she needs to be seen in office so that she can be evaluated there. Patient states that she cannot come into office because she does not have a ride. Advised patient that she can go to an urgent care to be evaluated. Patient states that shecannot do this. Please review and advise, Paradise Haley RN [facility]10-[facility] Telephone encounter Note* Telephone Encounter - Gretchen Newton APRN.ORE WASHER - 06/20/2024 3:08 PM EDT If she is not currently using albuterol inhaler every 6 hours would recommend doing so. Can add benzonatate to current medications. She has had 2 virtual visits for upper respiratory infection. She may want to come in to be checkedin the office. [facility] Telephone encounter Note* Telephone Encounter - Edwina Tatum LPN - 06/20/2024 2:41 PM EDT Pt had a video appt on 06/16/24 for cough, chest congestion. Pt was prescribed: Zpak - finished yesterday Prednisone-finished today Codeine-guaifenesin cough syrup-pt reports it does not help with cough or sleep Abulterol inhaler-helps with the wheezing. Pt reports she still has a lot of chest congestion and cough. Pt reports she only got three hours of sleep last night because of coughing. Pt reports she has tried taking Mucinex to see if that helpsbut it is not. Pt is asking if she needs more atb or if there is a different/stronger cough medicine that she could be prescribed so she could get some sleep. Pt denies fever and SOB. Please review and advise. Edwina Tatum LPN [facility]10-03-2024 Telephone encounter Note* Telephone Encounter - Silverio Haley MD - 06/16/2024 10:16 PM EDT Patient had VV with Gretchen Newton [facility]10-03-2024 Miscellaneous Notes* Telephone Encounter - Silverio Haley MD - 06/16/2024 10:16 PM EDT Patient had VV with Gretchen Newton * Telephone Encounter - Aleksander Couch MA - 06/16/2024 8:10 AM EDT Also TE regarding this. documented in this encounterKn[facility]10-[facility]24 History of Present illness Narrative* Gretchen Newton APRN.ORE WASHER - 06/16/2024 2:40 PM EDT Telemedicine Evaluation for COVID-19 Infection MyChart Zoom Video Visit was used for evaluation of this patient. I have communicated my name and active licensure. The patient's identity and physical location wereverified at the time of this visit. Either the patient or their legal client care representative has been informed of the risks and benefits of -- and alternatives to -- treatment through a remote evaluation andconsents to proceed with the evaluation remotely. SUBJECTIVE Sally Vargas is a 43 year old female who presents with 5 days of symptoms that are stable. Symptoms include: Fever (>=100.4F): No or Chills: No Cough: Yes, productive, purulent, difficult to control, no wheezineg Shortness of breath: No or Difficulty breathing: No Fatigue: Yes Muscle aches: No Headache: Yes frontal New loss of smell or taste: No Sore throat: Yes Nasal congestion: No or Rhinorrhea: No Nausea: No or Vomiting: No Diarrhea: No OTC meds/remedies that patient has tried: OTC cough syrup, OTC cold medicine, and pseudoephedrine. High risk category assessment No high risk factors Exposures: Sick contacts? No Family or close contacts with confirmed/probable COVID-19 in last 14 days? No She reports that she has been smoking cigarettes. She started smoking about 10 years ago. She has a1.5 pack-year smoking history. She has never used smokeless tobacco. OBJECTIVE VIDEO EXAM (if available) no home vitals, negative couvid test at home GENERAL: Ill-appearing, but non-toxic HEENT: no conjunctival injection, pupils equal and moist mucous membranes PULMONARY: breathing comfortably on room air and coughing ASSESSMENT/PLAN (R05.1) Acute cough (primary encounter diagnosis) (J06.9) Upper respiratory infection with cough and congestion (H65.193) Other acute nonsuppurative otitis media of both ears, recurrence not specified ASSESSMENT/PLAN: 1. Acute cough - ICD9: 786.2, ICD10: R05.1 (primary diagnosis) 2. Upper respiratory infection with cough and congestion - ICD9: 465.9, ICD10: J06.9 3. Smoker F17.200 - Symptomatic treatment with prn analgesia - Supportive care with fluids and rest - PREDNISONE 20 MG TABLET - ALBUTEROL SULFATE HFA 90 MCG/ACTUATION AEROSOL INHALER - CODEINE 10 MG-GUAIFENESIN 100 MG/5 ML ORAL LIQUID - AZITHROMYCIN 250 MG TABLET Gretchen Newton APRN.CNS - Discussed symptom monitoring and supportive care - Red flag symptoms requiring follow up discussed 15 min in visit documented in this encounterKn[facility]10-03-2024 NoteHNO ID: [id number] Author: GRETCHEN NEWTON APRN.GARCIA Service: ? Author Type: Nurse Specialist Type: Progress Notes Filed: 06/16/2024 15:52 Note Text: Telemedicine Evaluation for COVID-19 Infection MyChart Zoom Video Visit was used for evaluation of this patient. I have communicated my name and active licensure. The patient's identity and physical location were verified at the time of this visit. Either the patient or their legal client care representative has been informed of the risks and benefits of -- and alternatives to -- treatment through a remote evaluation and consents to proceed with the evaluation remotely. SUBJECTIVE Sally Vargas is a 43 year old female who presents with 5 days of symptoms that are stable. Symptoms include: Fever (>=100.4F): No or Chills: No Cough: Yes, productive, purulent, difficult to control, no wheezineg Shortness of breath: No or Difficulty breathing: No Fatigue: Yes Muscle aches: No Headache: Yes frontal New loss of smell or taste: No Sore throat: Yes Nasal congestion: No or Rhinorrhea: No Nausea: No or Vomiting: No Diarrhea: No OTC meds/remedies that patient has tried: OTC cough syrup, OTC cold medicine, and pseudoephedrine. High risk category assessment No high risk factors Exposures: Sick contacts? No Family or close contacts with confirmed/probable COVID-19 in last 14 days? No She reports that she has been smoking cigarettes. She started smoking about 10 years ago. She has a 1.5 pack-year smoking history. She has never used smokeless tobacco. OBJECTIVE VIDEO EXAM (if available) no home vitals, negative couvid test at home GENERAL: Ill-appearing, but non-toxic HEENT: no conjunctival injection, pupils equal and moist mucous membranes PULMONARY: breathing comfortably on room air and coughing ASSESSMENT/PLAN (R05.1) Acute cough (primary encounter diagnosis) (J06.9) Upper respiratory infection with cough and congestion (H65.193) Other acute nonsuppurative otitis media of both ears, recurrence not specified ASSESSMENT/PLAN: 1. Acute cough - ICD9: 786.2, ICD10: R05.1 (primary diagnosis) 2. Upper respiratory infection with cough and congestion - ICD9: 465.9, ICD10: J06.9 3. Smoker F17.200 - Symptomatic treatment with prn analgesia - Supportive care with fluids and rest - PREDNISONE 20 MG TABLET - ALBUTEROL SULFATE HFA 90 MCG/ACTUATION AEROSOL INHALER - CODEINE 10 MG-GUAIFENESIN 100 MG/5 ML ORAL LIQUID - AZITHROMYCIN 250 MG TABLET Gretchen Newton APRN.ORE WASHER - Discussed symptom monitoring and supportive care - Red flag symptoms requiring follow up discussed [facility] min in visitFire[facility] Telephone encounter Note* Telephone Encounter - Whit Guardado LPN - 06/16/2024 11:20 AM EDT Patient calling back wants to have virtual visit with POWER HOUSE [employer]INEER. She is asking for prednisone, rx cough syrup, antibiotics rx. She was not happy with virtual visit with Jaja Chahal POWER HOUSE ENGINEER. She can not come in for in person appt, no transportation. Aware PCP and Merced Hutchinson POWER HOUSE ENGINEER are out of office today. Scheduled patient with Gretchen Newton POWER HOUSE ENGINEER at 240 pm for virtual visit today. [facility]10-03-[facility] Miscellaneous Notes* Telephone Encounter - Whit Guardado LPN - 06/16/2024 11:20 AM EDT Patient calling back wants to have virtual visit with POWER HOUSE ENGINEER. She is asking for prednisone, rx cough syrup, antibiotics rx. She was not happy with virtual visit with Jaja Chahal POWER HOUSE ENGINEER. She can not come in for in person appt, no transportation. Aware PCP and Merced Hutchinson POWER HOUSE ENGINEER are out of office today. Scheduled patient with Gretchen Newton POWER HOUSE ENGINEER at 240 pm for virtual visit today. * Telephone Encounter - Deepa Salvador LPN - 06/16/2024 8:48 AM EDT Pt calling to say this was not answered. This nurse does state you may need an appointment for evaluation . Most times atb will not be called in unless seen. Pt becomes agitated and States'' its kassandra cough I do not have strep or covid'.Explained may need chest x-ray. Antibiotics are not given forviruses. Pt refuses appointment asks to have message resent. * Telephone Encounter - Whit Guardado LPN - 06/15/2024 1:37 PM EDT Patient calling back asking for antibiotic rx also. Please advise * Telephone Encounter - Whit Guardado LPN - 06/15/2024 10:53 AM EDT Patient calling she said had virtual visit with POWER HOUSE ENGINEER this morning, she was not given any rx. Patient said she has cough for past week, yellow secretions, no chest tightness, no fever, sore throat from post nasal drainage, patient said she can not sleep due to the cough. Patient asking for prednisone and cough syrup with codeine rx to be sent to [facility] pharmacy. Please advise documented in this encounterKn[facility]10-03-2024 Telephone encounter Note * Telephone Encounter - Deepa Salvador LPN - 06/16/2024 8:48 AM EDT Pt calling to say this was not answered. This nurse does state you may need an appointment for evaluation . Most times atb will not be called in unless seen. Pt becomes agitated and States'' its kassandra cough I do not have strep or covid'.Explained may need chest x-ray. Antibiotics are not given forviruses. Pt refuses appointment asks to have message resent. [facility] Telephone encounter Note* Telephone Encounter - Aleksander Couch MA - 06/16/2024 8:10 AM EDT Also TE regarding this. [facility]10-02-[facility] Telephone encounter Note* Telephone Encounter - Whit Guardado LPN - 06/15/2024 1:37 PM EDT Patient calling back asking for antibiotic rx also. Please advise [facility]10-[facility] Telephone encounter Note* Telephone Encounter - Whit Guardado LPN - 06/15/2024 10:53 AM EDT Patient calling she said had virtual visit with POWER HOUSE ENGINEER this morning, she was not given any rx. Patient said she has cough for past week, yellow secretions, no chest tightness, no fever, sore throat from post nasal drainage, patient said she can not sleep due to the cough. Patient asking for prednisone and cough syrup with codeine rx to be sent to [facility] pharmacy. Please advise [facility]10-02-2024 NoteHNO ID: [id number] Author: JAJA CHAHAL APRN.CLASSROOM TEACHER Service: ? Author Type: Nurse Practitioner Type: Progress Notes Filed: 06/15/2024 10:55 Note Text: This Team Access Model visit is a virtual encounter. It required patient-provider interaction for the medical decision making as documented below. I have communicated my name and active licensure. The patient's identity and physical location were verified at the time of this visit. Either the patient or their legal client care representative has been informed of the risks and benefits of -- and alternatives to -- treatment through a remote evaluation and consents to proceed with the evaluation remotely. Patient Location: [place] CC: Patient presents with: URI HPI: Sally Vargas is a 43 year old female who is contacted today for a virtual visit. This is an established patient of Dr. Silverio Haley MD. Symptoms began three days ago and are same. Symptoms include: Fever (>=100.4F): No Chills: No Cough: Yes Shortness of breath: No Fatigue: Yes Muscle aches: No Headache: No New loss of smell or taste: No Sore throat: Yes Nasal congestion: Yes Rhinorrhea: Yes Nausea and/or vomiting: No Diarrhea: No Other Associated symptoms: none. PMH: Non-contributory OTC meds/remedies that patient has tried: OTC cough syrup. Exposures: Sick contacts? No Family or close contacts with confirmed/probable COVID-19 in last 14 days? No Home COVID test: negative. Also checked for strep, negative She reports that she has been smoking cigarettes. She started smoking about 10 years ago. She has a 1.5 pack-year smoking history. She has never used smokeless tobacco. REVIEW OF SYSTEMS See HPI PAST MEDICAL HISTORY Diagnosis Date Allergic rhinitis, cause unspecified 05/17/2008 Spring and summer Benign liver cyst 05/24/2010 CT scan at [facility] 11/2009 and 04/2010 showe 4 mm increase in size. No pain. No elevated LFTs on 03/11/2010. Calculus of kidney 05/17/[address] Nicolas: Hospitalized age 20, and again later -- no procedures so far ([facility], [facility], [address] [facility]) Cancer (HCC) COVID-19 virus infection 10/07/202109/2021 Diverticulosis Dysmenorrhea Hemorrhoids History of blood transfusion Impaired fasting glucose 05/17/2008 Sugar 104 fasting, 04/21 Intractable nausea and vomiting 05/25/2020 Marijuana use 07/10/2020 ER visit 07/06/2020, [place] MIGRAINE 05/17/2008 Has used imitrex with good response; Keeps Vicodin on hand when needed; Ovarian cyst 07/15/2012 Pancreatitis Smoker 05/17/2008 Started age 26, 1/2 a PPD PAST SURGICAL HISTORY Procedure Laterality Date CHOLECYSTECTOMY HX COLONOSCOPY 05/08/2020 poor prep, stool in entire colon, int hemorrhoids, diverticulosis DILATION AND CURETTAGE DXAND/THER NONOBSTETRIC 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, mild esophagitis, 2 cm hiatal hernia EGD W/O BRSH SPEC VARICIES INJ 05/28/2020 LIG/TRNSXJ FLP TUBE ABDL/VAG APPR UNI/BI OOPHORECTOMY PARTIAL/TOTAL UNI/BI 2009 Oophorectomy right, still has left OOPHORECTOMY PARTIAL/TOTAL UNI/BI 01/2015 left removed PAST SURGICAL HISTORY OF uterine ablation PAST SURGICAL HISTORY OF cyst removal TOTAL ABDOMINAL HYSTERECT W/WO RMVL TUBE OVARY 08/31/2006 Hysterectomy, MICHELINE ALLERGIES Aspirin, Penicillins, Cephalexin, Chlorhexidine, Ciprofloxacin, Iodinated Contrast Media, Toradol [Ketorolac], Asa [Salicylates], Contrast Dye [Iodine], Dicyclomine, and Ibuprofen MEDICATIONS Cholecalciferol, Vitamin D3, 50 mcg (2,000 unit) cap Take 1 capsule by mouth once daily. Leg Brace (ANKLE BRACE) misc For left ankle. oxyCODONE IR (ROXICODONE) 5 mg immediate release tablet Take 1 tablet by mouth every 8 hours as needed for up to 5 days. SUMAtriptan (IMITREX STATDOSE PEN) 6 mg/0.5 mL pen Inject 0.5 mL subcutaneously as needed for migraine headache (see administration instructions). May repeat dose after 1 hour if needed. Maximum daily dose is 12 mg per day. pantoprazole DR (PROTONIX) 40 mg tablet Take 1 tablet by mouth daily before breakfast. Take on empty stomach, 1/2 hr before meal. ARIPiprazole (ABILIFY) 10 mg tablet Take 10 mg by mouth once daily. hyoscyamine sulfate 0.125 mg ODT Take 0.125 mg by mouth every 4 hours. LORazepam (ATIVAN) 0.5 mg Take 0.5 mg by mouth once daily as needed. Mesalamine (LIALDA) 1.2 gram EC tablet Take 1,200 mg by mouth once daily. traZODone (DESYREL) 50 mg tablet Take 50 mg by mouth daily at bedtime. cetirizine (ZYRTEC) 10 mg tablet Take 1 tablet by mouth once daily. for itching. (Patient not taking: Reported on 03/11/2024) Psyllium Seed-Sucrose (METAMUCIL, SUGAR,) Take per package directions (Patient not taking: Reported on 03/11/2024) promethazine (PHENERGAN) 25 mg tablet Take 1 tablet by mouth every 8 hours as needed for nausea/vomiting. vqdmoz-mrjxpppn-dgfobli (CREON 3) 3,000-9,500- 15,000 unit delayed release capsule Take 1 capsule by mouth three times a day with meals (more content not included)...[facility]10-02-2024 History of Present illness Narrative* Jaja Chahal, CAR ATTENDANT.CLASSROOM TEACHER - 06/15/2024 10:41 AM EDT This Team Access Model visit is a virtual encounter. It required patient- provider interaction for the medical decision making as documented below. I have communicated my name and active licensure. The patient's identity and physical location wereverified at the time of this visit. Either the patient or their legal client care representative has been informed of the risks and benefits of -- and alternatives to -- treatment through a remote evaluation andconsents to proceed with the evaluation remotely. Patient Location: [place] CC: Patient presents with: URI HPI: Sally Vargas is a 43 year old female who is contacted today for a virtual visit. This is an established patient of Dr. Silverio Haley MD. Symptoms began three days ago and are same. Symptoms include: Fever (>=100.4F): No Chills: No Cough: Yes Shortness of breath: No Fatigue: Yes Muscle aches: No Headache: No New loss of smell or taste: No Sore throat: Yes Nasal congestion: Yes Rhinorrhea: Yes Nausea and/or vomiting: No Diarrhea: No Other Associated symptoms: none. PMH: Non-contributory OTC meds/remedies that patient has tried: OTC cough syrup. Exposures: Sick contacts? No Family or close contacts with confirmed/probable COVID-19 in last 14 days? No Home COVID test: negative. Also checked for strep, negative She reports that she has been smoking cigarettes. She started smoking about 10 years ago. She has a1.5 pack-year smoking history. She has never used smokeless tobacco. REVIEW OF SYSTEMS See HPI PAST MEDICAL HISTORY Diagnosis Date Allergic rhinitis, cause unspecified 05/17/2008 Spring and summer Benign liver cyst 05/24/2010 CT scan at [facility] 11/2009 and 04/2010 showe 4 mm increase in size. No pain. No elevated LFTs on 03/11/2010. Calculus of kidney 05/17/[address] Nicolas: Hospitalized age 20, and again later -- no procedures so far ([facility] [address] [facility]) Cancer (HCC) COVID-19 virus infection 10/07/202109/2021 Diverticulosis Dysmenorrhea Hemorrhoids History of blood transfusion Impaired fasting glucose 05/17/2008 Sugar 104 fasting, 04/21 Intractable nausea and vomiting 05/25/2020 Marijuana use 07/10/2020 ER visit 07/06/2020, [place] MIGRAINE 05/17/2008 Has used imitrex with good response; Keeps Vicodin on hand when needed; Ovarian cyst 07/15/2012 Pancreatitis Smoker 05/17/2008 Started age 26, 1/2 a PPD 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, mild esophagitis, 2 cm hiatal hernia EGD W/O BRSH SPEC VARICIES INJ 05/28/2020 LIG/TRNSXJ FLP TUBE ABDL/VAG APPR UNI/BI OOPHORECTOMY PARTIAL/TOTAL UNI/BI 2009 Oophorectomy right, still has left OOPHORECTOMY PARTIAL/TOTAL UNI/BI 01/2015 left removed PAST SURGICAL HISTORY OF uterine ablation PAST SURGICAL HISTORY OF cyst removal TOTAL ABDOMINAL HYSTERECT W/WO RMVL TUBE OVARY 08/31/2006 Hysterectomy, MICHELINE ALLERGIES Aspirin, Penicillins, Cephalexin, Chlorhexidine, Ciprofloxacin, Iodinated Contrast Media,Toradol [Ketorolac], Asa [Salicylates], Contrast Dye [Iodine], Dicyclomine, and Ibuprofen MEDICATIONS Cholecalciferol, Vitamin D3, 50 mcg (2,000 unit) cap Take 1 capsule by mouth once daily. Leg Brace (ANKLE BRACE) misc For left ankle. oxyCODONE IR (ROXICODONE) 5 mg immediate release tablet Take 1 tablet by mouth every 8 hours as needed for up to 5 days. SUMAtriptan (IMITREX STATDOSE PEN) 6 mg/0.5 mL pen Inject 0.5 mL subcutaneously as needed for migraine headache (see administration instructions). May repeat dose after 1 hour if needed. Maximum daily dose is 12 mg per day. pantoprazole DR (PROTONIX) 40 mg tablet Take 1 tablet by mouth daily before breakfast. Take on empty stomach, 1/2 hr before meal. ARIPiprazole (ABILIFY) 10 mg tablet Take 10 mg by mouth once daily. hyoscyamine sulfate 0.125 mg ODT Take 0.125 mg by mouth every 4 hours. LORazepam (ATIVAN) 0.5 mg Take 0.5 mg by mouth once daily as needed. Mesalamine (LIALDA) 1.2 gram EC tablet Take 1,200 mg by mouth once daily. traZODone (DESYREL) 50 mg tablet Take 50 mg by mouth daily at bedtime. cetirizine (ZYRTEC) 10 mg tablet Take 1 tablet by mouth once daily. for itching. (Patient not taking: Reported on 03/11/2024) Psyllium Seed-Sucrose (METAMUCIL, SUGAR,) Take per package directions (Patient not taking: Reportedon 03/11/2024) promethazine (PHENERGAN) 25 mg tablet Take 1 tablet by mouth every 8 hours as needed for nausea/vomiting. zzodsh-csldewop-xtaohri (CREON 3) 3,000-9,500- 15,000 unit delayed release capsule Take 1 capsule by mouth three times a day with meals. gabapentin (NEURONTIN) 400 mg capsule Take 1 capsule by mouth every 12 hours. cyanocobalamin (VITAMIN B-12) 1,000 mcg tab Take 1 tablet by mouth once daily. (Patient not taking:Reported on 01/01/2024) diphenhydrAMINE (BENADRYL) 25 mg capsule Take 50 mg by mouth at bedtime as needed. FAMILY HISTORY Problem Relation Age of Onset Thyroid Mother unsure of details Arthritis Mother fibromyalgia Blood Disease Mother blood clots, unsure of details (aorta?) No Known Problems Father No Known Problems Sister No Known Problems Sister No Known Problems Brother Diabetes Maternal Grandmother Diabetes Maternal Grandfather Lipids Maternal Grandfather Stroke Maternal Grandfather Coronary Artery Disease Maternal Grandfather Cataract Maternal Grandfather Pancreatic Cancer Maternal Grandfather Diabetes Paternal Grandmother Diabetes Paternal Grandfather Coronary Artery Disease Paternal Grandfather No Known Problems Son No Known Problems Son Breast Cancer Maternal Aunt Lipids Maternal Uncle Coronary Artery Disease Maternal Uncle other (ovarian ca) Other maternal cousin Colon Cancer No Family History Social History Tobacco Use Smoking status: Every Day Current packs/day: 0.00 Average packs/day: 0.5 packs/day for 3.0 years (1.5 ttl pk-yrs) Types: Cigarettes Start date: 01/12/2014 Last attempt to quit: 01/12/2017 Years since quittin.4 Smokeless tobacco: Never Tobacco comments: Approx. 3 cigarettes daily-1 pack every week Vaping Use Vaping status: Never Used Substance Use Topics Alcohol use: Yes Comment: Occasional Drug use: Never Exam Virtual visit completed using video, limited exam completed. GENERAL: Ill-appearing, but non-toxic HEENT: no conjunctival injection, pupils equal, moist mucous membranes, oropharynx clear without erythema, sinuses non-tender to self-palpation, and no cervical adenopathy by self-palpation PULMONARY: breathing comfortably on room air , coughing, and no wheezing noted ASSESSMENT/PLAN: 1. Viral URI with cough - ICD9: 465.9, ICD10: J06.9 - Discussed viral etiology and rationale for treatment. - Symptomatic treatment with prn analgesia - Supportive care with fluids and rest - The patient may also use OTC cough and cold meds as needed. - Follow up in 7 days if symptoms persist or sooner if worsening of symptoms Prescription instructions reviewed with patient as applicable. Potential red flag symptoms discussed with the patient. Reviewed appropriate action plan to take if red flag symptoms occur. Patient agreeable to treatment plan. Jaja Chahal APRN.CLASSROOM TEACHER [facility] Tele[facility] encounter Note * Telephone Encounter - Lara Mercado LPN - 06/15/2024 9:04 AM EDT Cough, congestion & sore throat per pt. Pt states she can not come in for an appt today & requested a VV. Pt states her friend's nurse tested her for strep throat & covid & both were negative. VV scheduled today 10:40am Lara Mercado LPN [facility]10-02-2024 Miscellaneous Notes* Telephone Encounter - Lara Mercado LPN - 06/15/2024 9:04 AM EDT Cough, congestion & sore throat per pt. Pt states she can not come in for an appt today & requested a VV. Pt states her friend's nurse tested her for strep throat & covid & both were negative. VV scheduled today 10:40am Lara Mercado LPN [facility] Telephone encounter Note * Telephone Encounter - Brittnee Barraza LPN - 06/10/2024 4:24 PM EDT Ready to go down to Med Rec. Brittnee Barraza LPN [facility]09-27-2024 Miscellaneous Notes* Telephone Encounter - Brittnee Barraza LPN - 06/10/2024 4:24 PM EDT Ready to go down to [facility] Rec. Brittnee Barraza LPN * Telephone Encounter - Ivanna Torre RN - 06/10/2024 12:28 PM EDT Patient returns call and reports that she will apple picker order for ankle brace in medical records. Ivanna Torre RN * Telephone Encounter - Brittnee Barraza LPN - 06/10/2024 12:16 PM EDT Printed order for ankle brace was not given to patient before she left OV. Left message on answering machine as to whether to take Order to medical records for her to apple picker, or mail it to her. Brittnee Barraza LPN [facility] Telephone encounter Note * Telephone Encounter - Ivanna Torre RN - 06/10/2024 12:28 PM EDT Patient returns call and reports that she will apple picker order for ankle brace in medical records. Ivanna Torre RN [facility]09-27-2024 Telephone encounter Note* Telephone Encounter - Brittnee Barraza LPN - 06/10/2024 12:16 PM EDT Printed order for ankle brace was not given to patient before she left OV. Left message on answering machine as to whether to take Order to medical records for her to apple picker, or mail it to her. Brittnee Barraza LPN [facility]09-27-2024 Instructions* Patient Instructions* Silverio Haley MD - 06/10/2024 12:08 PM EDT -We will order an x-ray of your left ankle to investigate the cause of your swelling and pain. You can come back later to get this done. - I will prescribe oxycodone for short-term pain management. Please use this medication cautiously and avoid taking it at the same time as lorazepam due to potential interactions. - Consider using an ankle brace to help support your ankle and potentially reduce swelling. I will write a prescription for this, and you can pick one up at your pharmacy. - Resume taking vitamin D supplements. I will send a new prescription for 2,000 units daily to yourpharmacy. - Continue using cortisone cream and aloe vera lotion with chamomile to help with your dry, itchy skin. Aveeno and Cerave itch relief may help as well. - I will refer you to Dr. Drake for further evaluation of your right lower quadrant pain, which may be related to a history of kidney stones. - Please keep me updated on your progress and let me know if you have any concerns or if your symptoms do not improve. documented in this encounterKn[facility]09-27-2024 NoteHNO ID: [id number] Author: SILVERIO HALEY MD Service: ? Author Type: Physician Type: Progress Notes Filed: 06/10/2024 12:10 Note Text: This note was created using [employer]. Subjective Sally Vargas is a 43 year old female. Patient presents with: Established Patient: X 3 weeks left low leg pain and swelling with symptoms worse at night SUBJECTIVE: Sally Vargas is a 43 year old year old lady here today for acute appointment for review of medical conditions. The patient is a 43-year-old female presenting with left lower extremity and ankle swelling and pain. The patient reports a 3-week history of left lower extremity and ankle swelling and pain. The swelling is primarily noted at the end of the day and before bedtime, causing the skin to stretch and the tattoo on her leg to appear distorted. The swelling is associated with pain in the skin and joint, described as a tight sensation. She denies any prior injuries to the left lower extremity or ankle. The patient reports that the swelling and pain are exacerbated by wearing flip-flops and are not alleviated by elevating the leg or applying ice. She has been using crutches to ambulate when the swelling is severe. She has tried taking Tylenol for pain relief, but it has been ineffective. She is unable to take ibuprofen due to a history of hives. The patient also reports a history of dry, pruritic skin, for which she has been using cortisone cream and aloe vera lotion with chamomile. She notes improvement in her skin condition with these treatments. She has a history of vitamin D deficiency and has not been taking her prescribed vitamin D supplement. She is currently taking lorazepam, Protonix, and Creon. She has a history of migraines, for which she is receiving injections. She was in the ER yesterday for RLQ pain. [facility] work up was negative (no records available at time of visit). States was told to see urologyu She also has a history of kidney stones and is experiencing right flank pain similar to previous episodes. She has not seen a urologist for this condition recently. PAST MEDICAL HISTORY Diagnosis Date Allergic rhinitis, cause unspecified 05/17/2008 Spring and summer Benign liver cyst 05/24/2010 CT scan at [facility] 11/2009 and 04/2010 showe 4 mm increase in size. No pain. No elevated LFTs on 03/11/2010. Calculus of kidney 05/17/[address] Nicolas: Hospitalized age 20, and again later -- no procedures so far ([facility], [address] [facility]) Cancer (HCC) COVID-19 virus infection 10/07/202109/2021 Diverticulosis Dysmenorrhea Hemorrhoids History of blood transfusion Impaired fasting glucose 05/17/2008 Sugar 104 fasting, 04/21 Intractable nausea and vomiting 05/25/2020 Marijuana use 07/10/2020 ER visit 07/06/2020, [place] MIGRAINE 05/17/2008 Has used imitrex with good response; Keeps Vicodin on hand when needed; Ovarian cyst 07/15/2012 Pancreatitis Smoker 05/17/2008 Started age 26, 1/2 a PPD Current Outpatient Medications Medication Sig SUMAtriptan (IMITREX STATDOSE PEN) 6 mg/0.5 mL pen Inject 0.5 mL subcutaneously as needed for migraine headache (see administration instructions). May repeat dose after 1 hour if needed. Maximum daily dose is 12 mg per day. pantoprazole DR (PROTONIX) 40 mg tablet Take 1 tablet by mouth daily before breakfast. Take on empty stomach, 1/2 hr before meal. ARIPiprazole (ABILIFY) 10 mg tablet Take 10 mg by mouth once daily. hyoscyamine sulfate 0.125 mg ODT Take 0.125 mg by mouth every 4 hours. LORazepam (ATIVAN) 0.5 mg Take 0.5 mg by mouth once daily as needed. Mesalamine (LIALDA) 1.2 gram EC tablet Take 1,200 mg by mouth once daily. traZODone (DESYREL) 50 mg tablet Take 50 mg by mouth daily at bedtime. promethazine (PHENERGAN) 25 mg tablet Take 1 tablet by mouth every 8 hours as needed for nausea/vomiting. qfqrud-zahklgvb-wwjsauh (CREON 3) 3,000-9,500- 15,000 unit delayed release capsule Take 1 capsule by mouth three times a day with meals. gabapentin (NEURONTIN) 400 mg capsule Take 1 capsule by mouth every 12 hours. diphenhydrAMINE (BENADRYL) 25 mg capsule Take 50 mg by mouth at bedtime as needed. ibuprofen (MOTRIN) 600 mg tablet Take 600 mg by mouth every 6 hours as needed for pain. cetirizine (ZYRTEC) 10 mg tablet Take 1 tablet by mouth once daily. for itching. (Patient not taking: Reported on 03/11/2024) Psyllium Seed-Sucrose (METAMUCIL, SUGAR,) Take per package directions (Patient not taking: Reported on 03/11/2024) famotidine (PEPCID) 40 mg tablet Take 1 tablet by mouth once daily. (Patient not taking: Reported on 03/11/2024) Cholecalciferol, Vitamin D3, 125 mcg (5,000 unit) cap Take 1 capsule by mouth once daily. (Patient not taking: Reported on 01/01/2024) cyanocobalamin (VITAMIN B-12) 1,000 mcg tab Take 1 tablet by mouth once daily. (Patient not taking: Reported on 01/01/2024) No current facility-administered medications for (more content not included)... [facility] History of Present illness Narrative* Silverio Haley MD - 06/10/2024 11:30 AM EDT This note was created using [employer]. Subjective Sally Vargas is a 43 year old female. Patient presents with: Established Patient: X 3 weeks left low leg pain and swelling with symptoms worse at night SUBJECTIVE: Sally Vargas is a 43 year old year old lady here today for acute appointment for review of medical conditions. The patient is a 43-year-old female presenting with left lower extremity and ankle swelling and pain. The patient reports a 3-week history of left lower extremity and ankle swelling and pain. The swelling is primarily noted at the end of the day and before bedtime, causing the skin to stretch and the tattoo on her leg to appear distorted. The swelling is associated with pain in the skin and joint, described as a tight sensation. She denies any prior injuries to the left lower extremity or ankle. The patient reports that the swelling and pain are exacerbated by wearing flip-flops and are not alleviated by elevating the leg or applying ice. She has been using crutches to ambulate when the swelling is severe. She has tried taking Tylenol for pain relief, but it has been ineffective. She is unable to take ibuprofen due to a history of hives. The patient also reports a history of dry, pruritic skin, for which she has been using cortisone cream and aloe vera lotion with chamomile. She notes improvement in her skin condition with these treatments. She has a history of vitamin D deficiency and has not been taking her prescribed vitamin D ovalle pplement. She is currently taking lorazepam, Protonix, and Creon. She has a history of migraines, for which she is receiving injections. She was in the ER yesterday for RLQ pain. States work up was negative (no records available at timeof visit). States was told to see urologyu She also has a history of kidney stones and is experiencing right flank pain similar to previous episodes. She has not seen a urologist for this condition recently. PAST MEDICAL HISTORY Diagnosis Date Allergic rhinitis, cause unspecified 05/17/2008 Spring and summer Benign liver cyst 05/24/2010 CT scan at [facility] 11/2009 and 04/2010 showe 4 mm increase in size. No pain. No elevated LFTs on 03/11/2010. Calculus of kidney 05/17/[address] Nicolas: Hospitalized age 20, and again later -- no procedures so far ([facility], [address] [facility]) Cancer (HCC) COVID-19 virus infection 10/07/202109/2021 Diverticulosis Dysmenorrhea Hemorrhoids History of blood transfusion Impaired fasting glucose 05/17/2008 Sugar 104 fasting, 04/21 Intractable nausea and vomiting 05/25/2020 Marijuana use 07/10/2020 ER visit 07/06/2020, [place] MIGRAINE 05/17/2008 Has used imitrex with good response; Keeps Vicodin on hand when needed; Ovarian cyst 07/15/2012 Pancreatitis Smoker 05/17/2008 Started age 26, 1/2 a PPD Current Outpatient Medications Medication Sig SUMAtriptan (IMITREX STATDOSE PEN) 6 mg/0.5 mL pen Inject 0.5 mL subcutaneously as needed for migraine headache (see administration instructions). May repeat dose after 1 hour if needed. Maximum daily dose is 12 mg per day. pantoprazole DR (PROTONIX) 40 mg tablet Take 1 tablet by mouth daily before breakfast. Take on empty stomach, 1/2 hr before meal. ARIPiprazole (ABILIFY) 10 mg tablet Take 10 mg by mouth once daily. hyoscyamine sulfate 0.125 mg ODT Take 0.125 mg by mouth every 4 hours. LORazepam (ATIVAN) 0.5 mg Take 0.5 mg by mouth once daily as needed. Mesalamine (LIALDA) 1.2 gram EC tablet Take 1,200 mg by mouth once daily. traZODone (DESYREL) 50 mg tablet Take 50 mg by mouth daily at bedtime. promethazine (PHENERGAN) 25 mg tablet Take 1 tablet by mouth every 8 hours as needed for nausea/vomiting. txedsc-rkjmcnpg-hmiodwn (CREON 3) 3,000-9,500- 15,000 unit delayed release capsule Take 1 capsule by mouth three times a day with meals. gabapentin (NEURONTIN) 400 mg capsule Take 1 capsule by mouth every 12 hours. diphenhydrAMINE (BENADRYL) 25 mg capsule Take 50 mg by mouth at bedtime as needed. ibuprofen (MOTRIN) 600 mg tablet Take 600 mg by mouth every 6 hours as needed for pain. cetirizine (ZYRTEC) 10 mg tablet Take 1 tablet by mouth once daily. for itching. (Patient not taking: Reported on 03/11/2024) Psyllium Seed-Sucrose (METAMUCIL, SUGAR,) Take per package directions (Patient not taking: Reportedon 03/11/2024) famotidine (PEPCID) 40 mg tablet Take 1 tablet by mouth once daily. (Patient not taking: Reported on 03/11/2024) Cholecalciferol, Vitamin D3, 125 mcg (5,000 unit) cap Take 1 capsule by mouth once daily. (Patient not taking: Reported on 01/01/2024) cyanocobalamin (VITAMIN B-12) 1,000 mcg tab Take 1 tablet by mouth once daily. (Patient not taking:Reported on 01/01/2024) No current facility-administered medications for this visit. Review of Systems Objective BP 114/72 Pulse 63 Temp (!) 35.6 C (96.1 F) Resp 16 Wt 91.1 kg (200 lb 13.4 oz) LMP 08/10/2006 SpO2 97% BMI 37.43 kg/m Physical Exam Constitutional: General: She is not in acute distress. Appearance: Normal appearance. She is not toxic-appearing. HENT: Head: Normocephalic. Eyes: General: Right eye: Discharge present. Conjunctiva/sclera: Conjunctivae normal. Pulmonary: Effort: Pulmonary effort is normal. Abdominal: Tenderness: There is abdominal tenderness (RLQ). There is right CVA tenderness. There is no guarding or rebound. Musculoskeletal: Right lower leg: No edema. Left lower leg: No edema. Right ankle: Normal. No swelling, deformity or ecchymosis. Left ankle: No swelling, deformity or ecchymosis. Tenderness (anterior ankle) present. Normal rangeof motion (but pain with ROM noted). Skin: General: Skin is warm. Comments: excoriations on legs noted; no signs of infection Neurological: General: No focal deficit present. Mental Status: She is alert and oriented to person, place, and time. Psychiatric: Mood and Affect: Mood normal. Behavior: Behavior normal. Thought Content: Thought content normal. Judgment: Judgment normal. Assessment and Plan # Acute left ankle pain (M25.572) # Localized swelling, mass and lump, left lower limb (R22.42) - Left ankle pain and swelling worsening at night; no prior injuries reported. - Physical exam reveals no significant fluid accumulation or bruising currently. - Ordered left ankle X-ray to evaluate for potential arthritis or other underlying issues. - Discussed use of support socks and ankle brace to manage swelling and provide stability. - Prescribed oxycodone for short-term pain management, with instructions to avoid concurrent use with lorazepam. - Advised on potential use of ice and heat compresses. - If symptoms persist, consider short course of prednisone or referral to podiatry. # Itching (L29.9) - Itching has improved with the use of cortisone cream and aloe vera lotion. - Advised to continue using Aveeno lotion with oatmeal daily. - Zyrtec to be used as needed. # Vitamin D deficiency (E55.9) - Previous vitamin D level was 24 ng/mL. - Prescribed vitamin D 2000 units daily. # Chronic pancreatitis, unspecified pancreatitis type (HCC) (K86.1) - Continue current management with Creon. # RLQ abdominal pain (R10.31) # History of kidney stones (Z87.442) - Referred to Dr. Drake for urology evaluation. - Recent CT scan at [facility] showed no signs of current kidney stones or infection. - Follow-up with urology to determine further management. Silverio Haley MD [facility] Telephone encounter Note * Telephone Encounter - Silverio Haley MD - 05/27/2024 6:56 PM EDT Noted. Silverio Oliver. MD Sudha [facility]09-13-2024 Miscellaneous Notes* Telephone Encounter - Silverio Haley MD - 05/27/2024 6:56 PM EDT Noted. Silverio Haley MD * Telephone Encounter - Ivanna Torre RN - 05/27/2024 4:18 PM EDT Patient returns call and provider message reviewed. Patient is not certain what she would like to do. She had a colonoscopy done today and will call back next week to discuss once she is able to think about it but she is not interested in a neurology referral for now. Will call back next week and let us know what she decides in terms of medication but for now will leave medication as is. Ivanna Torre RN * Telephone Encounter - Whit Guardado LPN - 05/27/2024 1:22 PM EDT Phoned patient left message to return call and ask to speak to a nurse. * Telephone Encounter - Silverio Haley MD - 05/27/2024 1:09 PM EDT 6 mg is the max dose on the Imitrex. 6 mg is the highest dose and 12mg per day is the most can be taken. . My message that was to be conveyed was that there were lower doses if the 6mg dose was not tolerated. How often is she having migraines? She had requested switch to shots to see if would last longer. Would she prefer another triptan than could last longer, like Amerge or Relpax? Or do I need to refer her to our [facility] (neurology)? * Telephone Encounter - Brittnee Barraza LPN - 05/27/2024 12:55 PM EDT Encounter printed for Provider to address. Brittnee Barraza LPN * Telephone Encounter - Deepa Salvador LPN - 05/27/2024 11:12 AM EDT Pt calls again asking if doctor had answered her request for increase as of yet . I explained was not answered as of yet. * Telephone Encounter - Paradise Haley RN - 05/26/2024 9:12 AM EDT Patient calls back to see if provider has responded to request. Notified patient that provider still has not advised on request. Paradise Haley RN * Telephone Encounter - Ivanna Torre RN - 05/25/2024 4:50 PM EDT Patient calls back and asks that this message be sent urgent to provider. Injections are helping. She just needs a little stronger dose of sumatriptan for migraine relief. Please review and advise, Ivanna Torre RN * Telephone Encounter - Ivanna Torre RN - 05/25/2024 2:30 PM EDT Patient calls to check on status of request below. Notified patient request was sent to provider and waiting for review. Patient verbalizes understanding. Ivanna Torre RN * Telephone Encounter - Cara Hernandez LPN - 05/25/2024 11:41 AM EDT Patient is requesting a higher dose of her migraine injection (sumatripan). PATIENT stated that stated if she needed to calling to get her dosage increased. Please review advise Cara Hernandez LPN [facility] Telephone encounter Note * Telephone Encounter - Ivanna Torre RN - 05/27/2024 4:18 PM EDT Patient returns call and provider message reviewed. Patient is not certain what she would like to do. She had a colonoscopy done today and will call back next week to discuss once she is able to think about it but she is not interested in a neurology referral for now. Will call back next week and let us know what she decides in terms of medication but for now will leave medication as is. Ivanna Torre RN [facility]09-13-2024 [facility]09-13-2024 Telephone encounter Note* Telephone Encounter - Whit Guardado LPN - 05/27/2024 1:22 PM EDT Phoned patient left message to return call and ask to speak to a nurse. [facility] Telephone encounter Note* Telephone Encounter - Silverio Haley MD - 05/27/2024 1:09 PM EDT 6 mg is the max dose on the Imitrex. 6 mg is the highest dose and 12mg per day is the most can be taken. . My message that was to be conveyed was that there were lower doses if the 6mg dose was not tolerated. How often is she having migraines? She had requested switch to shots to see if would last longer. Would she prefer another triptan than could last longer, like Amerge or Relpax? Or do I need to refer her to our [facility] (neurology)? [facility] Telephone encounter Note* Telephone Encounter - Brittnee Barraza LPN - 05/27/2024 12:55 PM EDT Encounter printed for Provider to address. Brittnee Barraza LPN [facility] Telephone encounter Note* Telephone Encounter - Deepa Salvador LPN - 05/27/2024 11:12 AM EDT Pt calls again asking if doctor had answered her request for increase as of yet . I explained was not answered as of yet. [facility] Telephone encounter Note* Telephone Encounter - Paradise Haley RN - 05/26/2024 9:12 AM EDT Patient calls back to see if provider has responded to request. Notified patient that provider still has not advised on request. Paradise Haley RN [facility]09-11-2024 Telephone encounter Note* Telephone Encounter - Ivanna Torre RN - 05/25/2024 4:50 PM EDT Patient calls back and asks that this message be sent urgent to provider. Injections are helping. She just needs a little stronger dose of sumatriptan for migraine relief. Please review and advise, Ivanna Torre RN [facility] Telephone encounter Note* Telephone Encounter - Ivanna Torre RN - 05/25/2024 2:30 PM EDT Patient calls to check on status of request below. Notified patient request was sent to provider and waiting for review. Patient verbalizes understanding. Ivanna Torre, RN [facility]09-11-[facility] Telephone encounter Note* Telephone Encounter - Cara Hernandez LPN - 05/25/2024 11:41 AM EDT Patient is requesting a higher dose of her migraine injection (sumatripan). PATIENT stated that stated if she needed to calling to get her dosage increased. Please review advise Cara Hernandez LPN [facility]09-[facility] Telephone encounter Note* Telephone Encounter - Lara Mercado LPN - 05/19/2024 8:30 AM EDT Pt notified Rx has been sent to pharmacy. Pt states she thinks she knows how to use the pens. Appt offered to have a nurse go over how to use pens but pt declined. She was instructed to call for an appt if she feels it is needed, pt agreed. Lara Mercado LPN [facility]-05-2024 Miscellaneous Notes* Telephone Encounter - Lara Mercado LPN - 05/19/2024 8:30 AM EDT Pt notified Rx has been sent to pharmacy. Pt states she thinks she knows how to use the pens. Appt offered to have a nurse go over how to use pens but pt declined. She was instructed to call for an appt if she feels it is needed, pt agreed. Lara Mercado LPN * Telephone Encounter - Silverio Haley MD - 05/18/2024 7:20 PM EDT The following approved medication requests have been transmitted electronically. Requested Prescriptions Signed Prescriptions Disp Refills SUMAtriptan (IMITREX STATDOSE PEN) 6 mg/0.5 mL pen 4 mL 3 Sig: Inject 0.5 mL subcutaneously as needed for migraine headache (see administration instructions). May repeat dose after 1 hour if needed. Maximum daily dose is 12 mg per day. Authorizing Provider: SILVERIO HALEY MD I took pills off med list Can do lower dose if needed.Verify whether patient knows how to use pen * Telephone Encounter - Nunu Carcamo RN - 05/18/2024 9:42 AM EDT Patient asking if pcp ordered the imitrex injections for her? * Telephone Encounter - Lexy Desouza LPN - 05/17/2024 11:32 AM EDT Pt called to check status because she did not hear back from the office. Lexy Desouza LPN * Telephone Encounter - Ivanna Torre RN - 05/13/2024 11:34 AM EDT Patient calls to check on status of request. Notified request had been sent to provider and was pending review. Patient verbalizes understanding. Ivanna Torre RN * Telephone Encounter - Renetta Hernández RN - 05/12/2024 10:35 AM EDT Patient calling in. Pt had Distance Health visit with Dr. Haley on 04/29/24 due to migraines and pt was ordered Imitrex tablets. Pt states the tablets work but not for very long. Asking if she could try the injections? Please advise patient. Thank you. documented [facility] Telephone encounter Note * Telephone Encounter - Silverio Haley MD - 05/18/2024 7:20 PM EDT The following approved medication requests have been transmitted electronically. Requested Prescriptions Signed Prescriptions Disp Refills SUMAtriptan (IMITREX STATDOSE PEN) 6 mg/0.5 mL pen 4 mL 3 Sig: Inject 0.5 mL subcutaneously as needed for migraine headache (see administration instructions). May repeat dose after 1 hour if needed. Maximum daily dose is 12 mg per day. Authorizing Provider: SILVERIO HALEY MD I took pills off med list Can do lower dose if needed.Verify whether patient knows how to use pen [facility] Telephone encounter Note* Telephone Encounter - Nunu Carcamo RN - 05/18/2024 9:42 AM EDT Patient asking if pcp ordered the imitrex injections for her? [facility] Telephone encounter Note* Telephone Encounter - Lexy Desouza LPN - 05/17/2024 11:32 AM EDT Pt called to check status because she did not hear back from the office. Lexy Desouza LPN [facility]-30[facility] Telephone encounter Note* Telephone Encounter - Ivanna Torre RN - 05/13/2024 11:34 AM EDT Patient calls to check on status of request. Notified request had been sent to provider and was pending review. Patient verbalizes understanding. Ivanna Torre RN [facility] Telephone encounter Note* Telephone Encounter - Renetta Hernández RN - 05/12/2024 10:35 AM EDT Patient calling in. Pt had Distance Health visit with Dr. Haley on 04/29/24 due to migraines and pt was ordered Imitrex tablets. Pt states the tablets work but not for very long. Asking if she could try the injections? Please advise patient. Thank you. [facility]08-[facility] Telephone encounter Note* Telephone Encounter - Ashlyn Recio RN - 05/04/2024 8:53 AM EDT Pt reports she had to cancel her appointment today because she didn't get any sleep. She states theImitrex is helping her migraines. She states she hasn't had one since she has seen Dr Haley. Pt declined wanting to reschedule at this time. The patient has been identified by name and date of : Yes Caregiver verified no other encounters exist for this prescription request: Yes Caregiver confirmed with patient/requestor that no other refills are due, in the near future, with this provider at this time: Yes The last office visit in the department: 04/29/24 Does the patient have a future office visit with this provider/department: No Visit date not found Requested Prescriptions Pending Prescriptions Disp Refills pantoprazole DR (PROTONIX) 40 mg tablet 90 tablet 1 Sig: Take 1 tablet by mouth daily before breakfast. Take on empty stomach, 1/2 hr before meal. Ashlyn Recio RN May 04, 2024 8:53 AM [facility]08-[facility]-20[facility] Miscellaneous Notes* Telephone Encounter - Ashlyn Recio RN - 05/04/2024 8:53 AM EDT Pt reports she had to cancel her appointment today because she didn't get any sleep. She states theImitrex is helping her migraines. She states she hasn't had one since she has seen Dr Haley. Pt declined wanting to reschedule at this time. The patient has been identified by name and date of : Yes Caregiver verified no other encounters exist for this prescription request: Yes Caregiver confirmed with patient/requestor that no other refills are due, in the near future, with this provider at this time: Yes The last office visit in the department: 04/29/24 Does the patient have a future office visit with this provider/department: No Visit date not found Requested Prescriptions Pending Prescriptions Disp Refills pantoprazole DR (PROTONIX) 40 mg tablet 90 tablet 1 Sig: Take 1 tablet by mouth daily before breakfast. Take on empty stomach, 1/2 hr before meal. Ashlyn Recio RN May 04, 2024 8:53 AM documented [facility] History of Present illness Narrative* Silverio Haley MD - 04/29/2024 3:39 PM EDT VIRTUAL VISIT PROGRESS NOTE This is a virtual visit using momondohart Zoom Video Visit. It required patient- provider interaction for the medical decision making as documented below. I have communicated my name and active licensure. The patient's identity and physical location wereverified at the time of this visit. Either the patient or their legal client care representative has been informed of the risks and benefits of -- and alternatives to -- treatment through a remote evaluation andconsents to proceed with the evaluation remotely. Sally Vargas is a 43 year old female seen for migraines. Patient is a 43-year-old female with a history of migraines, presenting with worsening migraines over the past three months. Patient was diagnosed with migraines in 2016 and has been on gabapentin for management. In 2017, she experienced a severe migraine lasting almost two weeks, prompting a [facility] ER at [facility], where a CT scan was performed. 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 She was subsequently referred [facility] a [facility]. In 2019, patient was hospitalized for a severe migraine and was found to have low sodium levels, leading to a transfer to [facility] ICU for two nights. She was hospitalized for three to four daysand developed pancreatitis during the stay. Patient reports that her migraines have been worsening over the past three months, occurring daily and affecting her ability to sleep, work, and focus. Shehas been managing her migraines with Excedrin Migraine, taking two tablets every four hours, but reports that it only provides temporary relief. She has also tried Benadryl and caffeine without significant improvement. Patient has a history of kidney stones, with the last occurrence about a year ago. She has tried Imitrex in the past, but reports that it made her sleepy and is concerned about using it again due to her work schedule. She has not tried Maxalt or Topamax. Patient is currently taking gabapentin 400 mg three times a day, prescribed by her psychiatrist for anxiety, but reports that it has not been effective in managing her migraines. She has not tried prednisone for her migraines. Patient is also taking trazodone for sleep. She denies taking Tessalon Perles, Zyrtec, vitamin D, B12, or Pepcid. Sheis still taking pantoprazole. HISTORY REVIEWED (electronic chart updated): PAST MEDICAL HISTORY 05/17/2008: Allergic rhinitis, cause unspecified Comment: Spring and summer 05/24/2010: Benign liver cyst Comment: CT scan at [facility] 11/2009 and 04/2010 showe 4 mm increase in size. No pain. No elevated LFTs on 03/11/2010. 05/17/2008: Calculus of kidney Comment: Sees Dr. Nicolas: Hospitalized age 20, and again later -- no procedures so far ([facility], most, [address] [facility]) No date: Cancer (HCC) 10/07/2021: COVID-19 virus infection Comment: 09/2021 No date: Diverticulosis No date: Dysmenorrhea No date: Hemorrhoids No date: History of blood transfusion 05/17/2008: Impaired fasting glucose Comment: Sugar 104 fasting, 04/2105/25/2020: Intractable nausea and vomiting 07/10/2020: Marijuana use Comment: ER visit 07/06/2020, [place] 05/17/2008: MIGRAINE Comment: Has used imitrex with good response; Keeps Vicodin on hand when needed; 07/15/2012: Ovarian cyst No date: Pancreatitis 05/17/2008: Smoker Comment: Started age 26, 1/2 a PPD PAST SURGICAL HISTORY No date: CHOLECYSTECTOMY HX 05/08/2020: COLONOSCOPY Comment: poor prep, stool in entire colon, int hemorrhoids, diverticulosis No date: DILATION & CURETTAGE DX&/THER NONOBSTETRIC 05/08/2020: EGD Comment: eosinophilic gastritis, mild esophagitis, 2 cm hiatal hernia 05/28/2020: EGD W/O BRSH SPEC VARICIES INJ No date: LIG/TRNSXJ FLP TUBE ABDL/VAG APPR UNI/BI 2009: OOPHORECTOMY PARTIAL/TOTAL UNI/BI Comment: Oophorectomy right, still has left 01/2015: OOPHORECTOMY PARTIAL/TOTAL UNI/BI Comment: left removed No date: PAST SURGICAL HISTORY OF Comment: uterine ablation No date: PAST SURGICAL HISTORY OF Comment: cyst removal 08/31/2006: TOTAL ABDOMINAL HYSTERECT W/WO RMVL TUBE OVARY Comment: Hysterectomy, [facility] FAMILY HISTORY Problem Relation Age of Onset Thyroid Mother unsure of details Arthritis Mother fibromyalgia Blood Disease Mother blood clots, unsure of details (aorta?) No Known Problems Father No Known Problems Sister No Known Problems Sister No Known Problems Brother Diabetes Maternal Grandmother Diabetes Maternal Grandfather Lipids Maternal Grandfather Stroke Maternal Grandfather Coronary Artery Disease Maternal Grandfather Cataract Maternal Grandfather Pancreatic Cancer Maternal Grandfather Diabetes Paternal Grandmother Diabetes Paternal Grandfather Coronary Artery Disease Paternal Grandfather No Known Problems Son No Known Problems Son Breast Cancer Maternal Aunt Lipids Maternal Uncle Coronary Artery Disease Maternal Uncle other (ovarian ca) Other maternal cousin Colon Cancer No Family History Social History Tobacco Use Smoking status: Every Day Packs/day: 0.50 Years: 3.00 Additional pack years: 0.00 Total pack years: 1.50 Types: Cigarettes Last attempt to quit: 01/12/2017 Years since quittin.2 Smokeless tobacco: Never Tobacco comments: Approx. 3 cigarettes daily-1 pack every week Vaping Use Vaping Use: Never used Substance Use Topics Alcohol use: Yes Comment: Occasional Drug use: Never Current Outpatient Medications Medication Sig benzonatate (TESSALON PERLES) 100 mg capsule Take 1 capsule by mouth three times a day as needed for cough. ARIPiprazole (ABILIFY) 10 mg tablet Take 10 mg by mouth once daily. ibuprofen (MOTRIN) 600 mg tablet Take 600 mg by mouth every 6 hours as needed for pain. hyoscyamine sulfate 0.125 mg ODT Take 0.125 mg by mouth every 4 hours. LORazepam (ATIVAN) 0.5 mg Take 0.5 mg by mouth once daily as needed. Mesalamine (LIALDA) 1.2 gram EC tablet Take 1,200 mg by mouth once daily. traZODone (DESYREL) 50 mg tablet Take 50 mg by mouth daily at bedtime. cetirizine (ZYRTEC) 10 mg tablet Take 1 tablet by mouth once daily. for itching. (Patient not taking: Reported on 03/11/2024) Psyllium Seed-Sucrose (METAMUCIL, SUGAR,) Take per package directions (Patient not taking: Reportedon 03/11/2024) promethazine (PHENERGAN) 25 mg tablet Take 1 tablet by mouth every 8 hours as needed for nausea/vomiting. bbnwyf-lnvjdxzl-meuvgsp (CREON 3) 3,000-9,500- 15,000 unit delayed release capsule Take 1 capsule by mouth three times a day with meals. gabapentin (NEURONTIN) 400 mg capsule Take 1 capsule by mouth every [address] (PROTONIX) 40 mg tablet Take 1 tablet by mouth daily before breakfast. Take on empty stomach, 1/2 hr before meal. (Patient not taking: Reported on 01/01/2024) famotidine (PEPCID) 40 mg tablet Take 1 tablet by mouth once daily. (Patient not taking: Reported on 03/11/2024) Cholecalciferol, Vitamin D3, 125 mcg (5,000 unit) cap Take 1 capsule by mouth once daily. (Patient not taking: Reported on 01/01/2024) cyanocobalamin (VITAMIN B-12) 1,000 mcg tab Take 1 tablet by mouth once daily. (Patient not taking:Reported on 01/01/2024) pantoprazole DR (PROTONIX) 40 mg tablet Take 1 tablet by mouth once daily. Take on empty stomach, 1/2 hr before meal. diphenhydrAMINE (BENADRYL) 25 mg capsule Take 50 mg by mouth at bedtime as needed. No current facility-administered medications for this visit. ALLERGIES Allergen Reactions Aspirin Unknown Penicillins Rash Cephalexin Itching Chlorhexidine Rash Skin rash Ciprofloxacin Rash Unclear if the pruritic areas of rash were related to medication or not, no prior use Iodinated Contrast * Anaphylaxis Toradol [Ketorolac] Rash Asa [Salicylates] Other: See Comments ulcers Contrast Dye [Iodin* Shortness of Breath Dicyclomine Hives Ibuprofen GI Upset REVIEW OF SYSTEMS: As noted in HPI PHYSICAL EXAMINATION: VIDEO EXAM: (if completed, performed via video enabled technology) GENERAL: alert and appropriate, in no distress, well-hydrated, well nourished, appears tired, and depressed mood; reactive affect HEAD: normocephalic, no abnormality or lesion noted EYES: no injection and visual acuity is grossly normal RESPIRATORY: breathing non-labored ASSESSMENT: (G43.E19) Intractable chronic migraine with aura and without status migrainosus (primary encounter diagnosis) (E23.6) Empty sella (HCC) PLAN: Intractable chronic migraine with aura and without status migrainosus: - Chronic migraines have been ongoing since 2015, with significant exacerbations noted in 2016 and 2019. - Previous treatments included gabapentin, which was ineffective, and Imitrex, which provided temporary relief. - Recent exacerbation in February 2020 led to hospitalization and IV treatment; sodium levels were found to be very low. - Current symptoms include daily migraines with associated nausea, vomiting, and photophobia, significantly impacting daily activities and work. - Educated patient on the risks of rebound headaches from frequent use of Excedrin Migraine. - Discussed the potential use of prednisone to break the cycle of migraines; patient agreed to a short course of prednisone 40 mg (two 20 mg tablets) daily for 4 days. - Prescribed Imitrex 100 mg tablets, to be taken at the onset of a migraine, with a repeat dose after 2 hours if needed, but not to exceed one dose per 24 hours. - Plan to trial Maxalt if Imitrex is ineffective. - Scheduled a follow-up virtual visit on Thursday at 8 a.m. to assess the effectiveness of prednisone and Imitrex. Empty sella (HCC): - Empty sella was identified on MRI in 2016. - No current symptoms of hypopituitarism; no medications required for this condition. - Educated patient that empty sella is an incidental MRI finding and not a cause for concern without associated symptoms. - Will review previous MRI and lab results to confirm no further action is needed. There are no Patient Instructions on file for this visit. I spent a total of 29 minutes on the date of the service which included preparing to see the patient, gyjp-xo-[id number] patient care, completing clinical documentation, obtaining and/or reviewing separately obtained history, performing a medically appropriate examination, counseling and educating the pat ient/family/caregiver, and ordering medications, tests, or procedures. Silverio Haley MD [facility] Telephone encounter Note * Telephone Encounter - Lexy Desouza LPN - 04/29/2024 11:52 AM EDT Pt called in to get apt to discuss her migraines getting worse. Pt reports she has seen neurology awhile ago and would like to consider getting a new referral. Pt asked if apt with pcp could be virtual because it is so hard to get a ride to apt. Virtual apt has been booked for today with provider. Lexy Desouza LPN [facility]08-16[facility] Miscellaneous Notes* Telephone Encounter - Lexy Desouza LPN - 04/29/2024 11:52 AM EDT Pt called in to get apt to discuss her migraines getting worse. Pt reports she has seen neurology awhile ago and would like to consider getting a new referral. Pt asked if apt with pcp could be virtual because it is so hard to get a ride to apt. Virtual apt has been booked for today with provider. Lexy Desouza LPN documented [facility]07-[facility] Telephone encounter Note * Telephone Encounter - Yumiko Dailey PA - 04/01/2024 2:38 PM EDT I contacted patient to discuss her symptoms since she reported chest pain to MA. If patient returnscall, please connect her with provider. In original note, she just reported worsening cough and continues fever. If patient is having any chest pain, needs to proceed to ER. [facility]07-19-[facility] Miscellaneous Notes* Telephone Encounter - Yumiko Dailey PA - 04/01/2024 2:38 PM EDT I contacted patient to discuss her symptoms since she reported chest pain to MA. If patient returnscall, please connect her with provider. In original note, she just reported worsening cough and continues fever. If patient is having any chest pain, needs to proceed to ER. * Telephone Encounter - Lou Gallego MA - 04/01/2024 2:28 PM EDT Patient notified of X-ray ordered and note in MyChart, verbalized understanding and voices that sheonly started antibiotic this morning and feels as though chest pain is getting worse. Informed patient that she can come in today before 5 for x-ray or 8-12 tomorrow, or if she feels as though pain is too severe that she needs to proceed to the ER. Lou Gallego MA * Telephone Encounter - Yumiko Dailey PA - 04/01/2024 2:22 PM EDT Patient called requesting CXR order she declined yesterday. Order was placed. We will contact her with results. Of note, she is on doxycycline, prednisone and tessalon perles already. Work note in chart * Telephone Encounter - Renetta Hernández RN - 04/01/2024 1:51 PM EDT Patient calling and states she was seen in [facility] yesterday and a chest xray was advised and she declined it. Patient continues to feel unwell and asking if provider will place order for chest xray so she can get this completed today? 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 Asking if provider would write note for her employer with the recommendation to stay home until fever free, etc. Please call patient with reply. [phone] Thank you. documented in this encounterKn[facility]07-[facility]24 Telephone encounter Note * Telephone Encounter - Lou Gallego MA - 04/01/2024 2:28 PM EDT Patient notified of X-ray ordered and note in MyChart, verbalized understanding and voices that sheonly started antibiotic this morning and feels as though chest pain is getting worse. Informed patient that she can come in today before 5 for x-ray or 8-12 tomorrow, or if she feels as though pain is too severe that she needs to proceed to the ER. Lou Gallego MA [facility]07-19-[facility] Telephone encounter Note* Telephone Encounter - Yumiko Daliey PA - 04/01/2024 2:22 PM EDT Patient called requesting CXR order she declined yesterday. Order was placed. We will contact her with results. Of note, she is on doxycycline, prednisone and tessalon perles already. Work note in chart [facility]07-19-[facility] Telephone encounter Note* Telephone Encounter - Renetta Hernández RN - 04/01/2024 1:51 PM EDT Patient calling and states she was seen in [facility] yesterday and a chest xray was advised and she declined it. Patient continues to feel unwell and asking if provider will place order for chest xray so she can get this completed today? 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 Asking if provider would write note for her employer with the recommendation to stay home until fever free, etc. Please call patient with reply. [phone] Thank you. [facility]07-18[facility] History of Present illness Narrative* Marcelino Bess, [employer]LYN.[employer] - 03/31/2024 5:29 PM EDT Subjective HPI Nontoxic-appearing female presents urgent care chief complaint sinus pressure cough chest congestion. Sinuses have been bothersome for about 2 weeks. Cough has developed over the last week. Presents today for evaluation. Feels like cough and sinus pressure is worsening. OTC medication little to no success. Cough is bothersome at night. Sick contacts work similar signs and symptoms. Denies any high fevers body aches chills nausea vomiting abdominal pain chest pain shortness of breath pleuritic pain or change in bowel or bladder habits. Past medical history prescription medications allergies reviewed. .Patient presents with: Nasal Congestion: Sinus congestion pain and pressure x2 weeks, cough, chest congestion x1 week PAST MEDICAL HISTORY Diagnosis Date Allergic rhinitis, cause unspecified 05/17/2008 Spring and summer Benign liver cyst 05/24/2010 CT scan at [facility] 11/2009 and 04/2010 showe 4 mm increase in size. No pain. No elevated LFTs on 03/11/2010. Calculus of kidney 05/17/[address] Nicolas: Hospitalized age 20, and again later -- no procedures so far ([facility] [address] [facility]) Cancer (HCC) COVID-19 virus infection 10/07/202109/2021 Diverticulosis Dysmenorrhea Hemorrhoids History of blood transfusion Impaired fasting glucose 05/17/2008 Sugar 104 fasting, 04/21 Intractable nausea and vomiting 05/25/2020 Marijuana use 07/10/2020 ER visit 07/06/2020, [place] MIGRAINE 05/17/2008 Has used imitrex with good response; Keeps Vicodin on hand when needed; Ovarian cyst 07/15/2012 Pancreatitis Smoker 05/17/2008 Started age 26, 1/2 a PPD 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, mild esophagitis, 2 cm hiatal hernia EGD W/O [facility] SPEC VARICIES INJ 05/28/2020 LIG/TRNSXJ FLP TUBE ABDL/VAG APPR UNI/BI OOPHORECTOMY PARTIAL/TOTAL UNI/BI 2009 Oophorectomy right, still has left OOPHORECTOMY PARTIAL/TOTAL UNI/BI 01/2015 left removed PAST SURGICAL HISTORY OF uterine ablation PAST SURGICAL HISTORY OF cyst removal TOTAL ABDOMINAL HYSTERECT W/WO RMVL TUBE OVARY 08/31/2006 Hysterectomy, MICHELINE ALLERGIES Aspirin, Penicillins, Cephalexin, Chlorhexidine, Ciprofloxacin, Iodinated Contrast Media,Toradol [Ketorolac], Asa [Salicylates], Contrast Dye [Iodine], Dicyclomine, and Ibuprofen MEDICATIONS ARIPiprazole (ABILIFY) 10 mg tablet Take 10 mg by mouth once daily. ibuprofen (MOTRIN) 600 mg tablet Take 600 mg by mouth every 6 hours as needed for pain. hyoscyamine sulfate 0.125 mg ODT Take 0.125 mg by mouth every 4 hours. LORazepam (ATIVAN) 0.5 mg Take 0.5 mg by mouth once daily as needed. Mesalamine (LIALDA) 1.2 gram EC tablet Take 1,200 mg by mouth once daily. traZODone (DESYREL) 50 mg tablet Take 50 mg by mouth daily at bedtime. promethazine (PHENERGAN) 25 mg tablet Take 1 tablet by mouth every 8 hours as needed for nausea/vomiting. mngbgc-lgzeooxn-fzyjhra (CREON 3) 3,000-9,500- 15,000 unit delayed release capsule Take 1 capsule by mouth three times a day with meals. gabapentin (NEURONTIN) 400 mg capsule Take 1 capsule by mouth every 12 hours. diphenhydrAMINE (BENADRYL) 25 mg capsule Take 50 mg by mouth at bedtime as needed. cetirizine (ZYRTEC) 10 mg tablet Take 1 tablet by mouth once daily. for itching. (Patient not taking: Reported on 03/11/2024) Psyllium Seed-Sucrose (METAMUCIL, SUGAR,) Take per package directions (Patient not taking: Reportedon 03/11/2024) predniSONE (DELTASONE) 10 mg tablet Take 4 tabs daily for 3 days, then 2 tabs daily for 3 days, then 1 tab daily for 3 days with food. (Patient not taking: Reported on 01/01/2024) pantoprazole DR (PROTONIX) 40 mg tablet Take 1 tablet by mouth daily before breakfast. Take on empty stomach, 1/2 hr before meal. (Patient not taking: Reported on 01/01/2024) famotidine (PEPCID) 40 mg tablet Take 1 tablet by mouth once daily. (Patient not taking: Reported on 03/11/2024) Cholecalciferol, Vitamin D3, 125 mcg (5,000 unit) cap Take 1 capsule by mouth once daily. (Patient not taking: Reported on 01/01/2024) cyanocobalamin (VITAMIN B-12) 1,000 mcg tab Take 1 tablet by mouth once daily. (Patient not taking:Reported on 01/01/2024) pantoprazole DR (PROTONIX) 40 mg tablet Take 1 tablet by mouth once daily. Take on empty stomach, 1/2 hr before meal. FAMILY HISTORY Problem Relation Age of Onset Thyroid Mother unsure of details Arthritis Mother fibromyalgia Blood Disease Mother blood clots, unsure of details (aorta?) No Known Problems Father No Known Problems Sister No Known Problems Sister No Known Problems Brother Diabetes Maternal Grandmother Diabetes Maternal Grandfather Lipids Maternal Grandfather Stroke Maternal Grandfather Coronary Artery Disease Maternal Grandfather Cataract Maternal Grandfather Pancreatic Cancer Maternal Grandfather Diabetes Paternal Grandmother Diabetes Paternal Grandfather Coronary Artery Disease Paternal Grandfather No Known Problems Son No Known Problems Son Breast Cancer Maternal Aunt Lipids Maternal Uncle Coronary Artery Disease Maternal Uncle other (ovarian ca) Other maternal cousin Colon Cancer No Family History Social History Tobacco Use Smoking status: Every Day Packs/day: 0.50 Years: 3.00 Additional pack years: 0.00 Total pack years: 1.50 Types: Cigarettes Last attempt to quit: 01/12/2017 Years since quittin.2 Smokeless tobacco: Never Tobacco comments: Approx. 3 cigarettes daily-1 pack every week Vaping Use Vaping Use: Never used Substance Use Topics Alcohol use: Yes Comment: Occasional Drug use: Never BP 114/80 Pulse 66 Temp 36.8 C (98.3 F) Resp 18 Wt 91.7 kg (202 lb 2.6 oz) LMP 08/10/2006 SpO2 97% BMI 37.68 kg/m Review of Systems Constitutional: Negative for chills, fever and malaise/fatigue. HENT: Positive for congestion and sinus pain. Negative for ear discharge, ear pain and sore throat. Eyes: Negative for blurred vision, pain, discharge and redness. Respiratory: Positive for cough and sputum production. Negative for hemoptysis, shortness of breath, wheezing and stridor. Cardiovascular: Negative for chest pain. Gastrointestinal: Negative for abdominal pain, diarrhea, nausea and vomiting. Musculoskeletal: Positive for myalgias. Skin: Negative for itching and rash. Neurological: Positive for headaches. Negative for dizziness. Objective Physical Exam Constitutional: General: She is not in acute distress. Appearance: She is not diaphoretic. HENT: Head: Normocephalic. Jaw: No trismus, tenderness, swelling or pain on movement. Right Ear: Tympanic membrane, ear canal and external ear normal. Left Ear: Tympanic membrane, ear canal and external ear normal. Nose: Congestion present. Right Sinus: Maxillary sinus tenderness present. Left Sinus: Maxillary sinus tenderness present. Mouth/Throat: Mouth: Mucous membranes are moist. Pharynx: Oropharynx is clear. Uvula midline. No pharyngeal swelling, oropharyngeal exudate, posterior oropharyngeal erythema or uvula swelling. Eyes: Conjunctiva/sclera: Conjunctivae normal. Pupils: Pupils are equal, round, and reactive to light. Cardiovascular: Rate and Rhythm: Normal rate and regular rhythm. Heart sounds: Normal heart sounds. Pulmonary: Effort: Pulmonary effort is normal. No tachypnea, accessory muscle usage or respiratory distress. Breath sounds: No stridor. Wheezing present. No rhonchi or rales. Abdominal: General: There is no distension. Palpations: Abdomen is soft. Tenderness: There is no abdominal tenderness. There is no guarding or rebound. Musculoskeletal: Cervical back: Normal range of motion and neck supple. No edema, erythema, rigidity or tenderness. No pain with movement. Normal range of motion. Lymphadenopathy: Cervical: No cervical adenopathy. Skin: General: Skin is warm and dry. Neurological: Mental Status: She is alert and oriented to person, place, and time. ASSESSMENT/PLAN: 1. Sinobronchitis - ICD9: 473.9, 490, ICD10: J32.9, J40 Diagnosis sinobronchitis. Placed on doxycycline Tessalon Perles and prednisone. Recommended chest x-ray declined x-ray at this point. Patient was educated on supportive therapies. Patient will followup with primary care provider as needed. Patient was instructed to immediately proceed to emergencyroom for any new, worsening, or symptoms lasting longer than anticipated. The patient's clinical presentation is otherwise unremarkable at this time. Based on exam and clinical finding, the patient is stable for discharge. Plan of care was discussed with patient. Patient verbalizes understanding and agrees to plan of care. This note was generated using [employer] software. It may contain errors in wording, punctuation, or spelling. Marcelino Bess APRN.MANUELITO documented in this encounterKn[facility]06-28-[facility]24 History of Present illness Narrative* Yumiko Dailey PA - 03/11/2024 5:11 PM EDT Images from the original note were not included. This note was created using [employer] Subjective Sally Vargas is a 43 year old female. HPI 43-year-old female presents for dental pain, right ear pain. Patient states that she had teeth pulled several weeks ago. She has been having right lower jaw pain since then. She states she was onamoxicillin, but her pain is continued. She now has pain radiating up into her right ear. She states her right ear feels slightly swollen. No swimming recently. No drainage from the ear. No cough daniella estion fevers or URI symptoms. She has another follow-up scheduled with her dentist, but due to increased pain, came in for evaluation. She has been taking [id number] Motrin with minimal improvement. PAST MEDICAL HISTORY Diagnosis Date Allergic rhinitis, cause unspecified 05/17/2008 Spring and summer Benign liver cyst 05/24/2010 CT scan at [facility] 11/2009 and 04/2010 showe 4 mm increase in size. No pain. No elevated LFTs on 03/11/2010. Calculus of kidney 05/17/[address] Nicolas: Hospitalized age 20, and again later -- no procedures so far ([facility] [address] [facility]) Cancer (HCC) COVID-19 virus infection 10/07/202109/2021 Diverticulosis Dysmenorrhea Hemorrhoids History of blood transfusion Impaired fasting glucose 05/17/2008 Sugar 104 fasting, 04/21 Intractable nausea and vomiting 05/25/2020 Marijuana use 07/10/2020 ER visit 07/06/2020, [place] MIGRAINE 05/17/2008 Has used imitrex with good response; Keeps Vicodin on hand when needed; Ovarian cyst 07/15/2012 Pancreatitis Smoker 05/17/2008 Started age 26, 1/2 a PPD 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, mild esophagitis, 2 cm hiatal hernia EGD W/O [facility] SPEC VARICIES INJ 05/28/2020 LIG/TRNSXJ FLP TUBE ABDL/VAG APPR UNI/BI OOPHORECTOMY PARTIAL/TOTAL UNI/BI 2009 Oophorectomy right, still has left OOPHORECTOMY PARTIAL/TOTAL UNI/BI 01/2015 left removed PAST SURGICAL HISTORY OF uterine ablation PAST SURGICAL HISTORY OF cyst removal TOTAL ABDOMINAL HYSTERECT W/WO RMVL TUBE OVARY 08/31/2006 Hysterectomy, MICHELINE ALLERGIES Aspirin, Penicillins, Cephalexin, Chlorhexidine, Ciprofloxacin, Iodinated Contrast Media,Toradol [Ketorolac], Asa [Salicylates], Contrast Dye [Iodine], Dicyclomine, and Ibuprofen MEDICATIONS ARIPiprazole (ABILIFY) 10 mg tablet Take 10 mg by mouth once daily. ibuprofen (MOTRIN) 600 mg tablet Take 600 mg by mouth every 6 hours as needed for pain. hyoscyamine sulfate 0.125 mg ODT Take 0.125 mg by mouth every 4 hours. LORazepam (ATIVAN) 0.5 mg Take 0.5 mg by mouth once daily as needed. Mesalamine (LIALDA) 1.2 gram EC tablet Take 1,200 mg by mouth once daily. traZODone (DESYREL) 50 mg tablet Take 50 mg by mouth daily at bedtime. promethazine (PHENERGAN) 25 mg tablet Take 1 tablet by mouth every 8 hours as needed for nausea/vomiting. dcvtak-hgziakxy-nkxchps (CREON 3) 3,000-9,500- 15,000 unit delayed release capsule Take 1 capsule by mouth three times a day with meals. gabapentin (NEURONTIN) 400 mg capsule Take 1 capsule by mouth every [address] (PROTONIX) 40 mg tablet Take 1 tablet by mouth once daily. Take on empty stomach, 1/2 hr before meal. diphenhydrAMINE (BENADRYL) 25 mg capsule Take 50 mg by mouth at bedtime as needed. clindamycin (CLEOCIN) 150 mg capsule Take 3 capsules by mouth three times a day for 5 days. wfydqthd-sxmyzozoo-sigoedyezlwvjt (CORTISPORIN) 3.5-10,000-1 mg/mL-unit/mL-% otic suspension Use 3 Drops in the right ear four times daily for 7 days. cetirizine (ZYRTEC) 10 mg tablet Take 1 tablet by mouth once daily. for itching. (Patient not taking: Reported on 03/11/2024) Psyllium Seed-Sucrose (METAMUCIL, SUGAR,) Take per package directions (Patient not taking: Reportedon 03/11/2024) predniSONE (DELTASONE) 10 mg tablet Take 4 tabs daily for 3 days, then 2 tabs daily for 3 days, then 1 tab daily for 3 days with food. (Patient not taking: Reported on 01/01/2024) pantoprazole DR (PROTONIX) 40 mg tablet Take 1 tablet by mouth daily before breakfast. Take on empty stomach, 1/2 hr before meal. (Patient not taking: Reported on 01/01/2024) famotidine (PEPCID) 40 mg tablet Take 1 tablet by mouth once daily. (Patient not taking: Reported on 03/11/2024) Cholecalciferol, Vitamin D3, 125 mcg (5,000 unit) cap Take 1 capsule by mouth once daily. (Patient not taking: Reported on 01/01/2024) cyanocobalamin (VITAMIN B-12) 1,000 mcg tab Take 1 tablet by mouth once daily. (Patient not taking:Reported on 01/01/2024) FAMILY HISTORY Problem Relation Age of Onset Thyroid Mother unsure of details Arthritis Mother fibromyalgia Blood Disease Mother blood clots, unsure of details (aorta?) No Known Problems Father No Known Problems Sister No Known Problems Sister No Known Problems Brother Diabetes Maternal Grandmother Diabetes Maternal Grandfather Lipids Maternal Grandfather Stroke Maternal Grandfather Coronary Artery Disease Maternal Grandfather Cataract Maternal Grandfather Pancreatic Cancer Maternal Grandfather Diabetes Paternal Grandmother Diabetes Paternal Grandfather Coronary Artery Disease Paternal Grandfather No Known Problems Son No Known Problems Son Breast Cancer Maternal Aunt Lipids Maternal Uncle Coronary Artery Disease Maternal Uncle other (ovarian ca) Other maternal cousin Colon Cancer No Family History Social History Tobacco Use Smoking status: Every Day Packs/day: 0.50 Years: 3.00 Additional pack years: 0.00 Total pack years: 1.50 Types: Cigarettes Last attempt to quit: 01/12/2017 Years since quittin.1 Smokeless tobacco: Never Tobacco comments: Approx. 3 cigarettes daily-1 pack every week Vaping Use Vaping Use: Never used Substance Use Topics Alcohol use: Yes Comment: Occasional Drug use: Never Review of Systems Constitutional: Negative for chills and fever. HENT: Positive for dental problem and ear pain. Negative for congestion and sore throat. Respiratory: Negative for cough and shortness of breath. Cardiovascular: Negative for chest pain. Gastrointestinal: Negative for diarrhea and vomiting. Objective BP 103/68 Pulse 70 Temp 36.7 C (98 F) Resp 18 Wt 92 kg (202 lb 13.2 oz) LMP 08/10/2006 SpO2 98% BMI 37.80 kg/m Physical Exam Vitals and nursing note reviewed. Constitutional: General: She is not in acute distress. Appearance: Normal appearance. She is not toxic-appearing. HENT: Head: Jaw: Tenderness and swelling present. No trismus or pain on movement. Salivary Glands: Right salivary gland is not diffusely enlarged or tender. Right Ear: Tympanic membrane and ear canal normal. Swelling and tenderness present. Left Ear: Tympanic membrane and ear canal normal. Ears: Comments: Tenderness noted to right tragus and external ear canal. Mild swelling noted of the external canal. TM normal. Nose: Nose normal. Mouth/Throat: Mouth: Mucous membranes are moist. Dentition: Abnormal dentition. Comments: Patient has no dentition. She does have swelling noted over her right lower gumline whereteeth were recently pulled. No abscess, drainage. No tongue or floor of mouth swelling. No trismus.Handling secretions. She does have mild swelling over right side of jaw. No parotid swelling or tenderness. Eyes: Conjunctiva/sclera: Conjunctivae normal. Cardiovascular: Rate and Rhythm: Normal rate and regular rhythm. Pulmonary: Effort: Pulmonary effort is normal. Breath sounds: Normal breath sounds. Skin: General: Skin is warm and dry. Neurological: Mental Status: She is alert. Assessment and Plan ASSESSMENT/PLAN: 1. Pain, dental - ICD9: 525.9, ICD10: K08.89 (primary diagnosis) -Concern for infection with gingival swelling where her teeth were recently pulled. She also has some outer jaw swelling noted in this area. -Low suspicion for parotiditis. No swelling or tenderness over this area. -Patient has allergy to amoxicillin and cephalosporins. Rx for clindamycin. 2. Acute otitis externa of right ear, unspecified type - ICD9: 380.10, ICD10: H60.501 -Rx for Cortisporin drops. -Avoid getting water in the ear. Diagnosis and treatment plan were discussed and questions were answered to the patient's satisfaction. Pt acknowledged understanding of concepts and follow up plan. Specific signs and symptoms that would indicate the need for higher level of care were discussed in detail warranting prompt ER evaluation. [facility] Patient Education 02/04/2024 18:20:25 Flank Pain, Uncertain Cause Flank Pain, Uncertain Cause The flank is the area between your upper abdomen and your back. Pain there is often caused by a problem with your kidneys. It might be a kidney infection or a kidney stone. Other causes of flank paininclude spinal arthritis, a pinched nerve from a back injury, or a back muscle strain or spasm. The cause of your flank pain is not certain. You may need other tests. Home care Follow these tips when caring for yourself at home: You may use acetaminophen or ibuprofen to control pain, unless your health care provider prescribedanother medicine. If you have chronic liver or kidney disease, talk with your provider before taking these medicines. Also talk with your provider first if you ve ever had a stomach ulcer or GI bleeding. If the pain is coming from your muscles, you may get relief with ice or heat. During the first 2 days after the injury, put an ice pack on the painful area for 20 minutes every 2 to 4 hours. This will reduce swelling and pain. A hot shower, hot bath, or heating pad works well for a muscle spasm. You can start with ice, then switch to heat after 2 days. You might find that alternating ice and heatworks well. Use the method that feels the best to you. Follow-up care Follow up with your healthcare provider if your symptoms don t get better over the next few days. When to seek medical advice Call your healthcare provider right away if any of these happen: Repeated vomiting Fever of 100.4 F (38 C) or higher, or as directed by your health care provider Flank pain that gets worse Pain that spreads to the front of your belly (abdomen) Dizziness, weakness, or fainting Blood in your urine Burning feeling when you urinate or the need to urinate often Pain in one of your legs that gets worse Numbness or weakness in a leg 1110-6923 [employer] [address] [place] [address]. All rights reserved. This information is not intended as a substitute for professional medical care. Always follow yourhealthcare professional's instructions. 02/04/2024 18:20:22 Abdominal Pain Abdominal Pain Abdominal pain is pain in the stomach or belly area. Everyone has this pain from time to time. In many cases it goes away on its own. But abdominal pain can sometimes be due to a serious problem, such as appendicitis. So it s important to know when to get help. Causes of abdominal pain There are many possible causes of abdominal pain. Common causes in adults include: Constipation, diarrhea, or gas Stomach acid flowing back up into the esophagus (acid reflux or heartburn) Severe acid reflux, called GERD (gastroesophageal reflux disease) A sore in the lining of the stomach or small intestine (peptic ulcer) Inflammation of the gallbladder, liver, or pancreas Gallstones or kidney stones Appendicitis Intestinal blockage An internal organ pushing through a muscle or other tissue (hernia) Urinary tract infections In women, menstrual cramps, fibroids, ovarian cysts, pelvic inflammatory disease, or endometriosis Inflammation or infection of the intestines, including Crohn's disease and ulcerative colitis Irritable bowel syndrome Diagnosing the cause of abdominal pain Your healthcare provider will give you a physical exam help find the cause of your pain. If needed,you will have tests. Belly pain has many possible causes. So it can be hard to find the reason for your pain. Giving details about your pain can help. Tell your provider where and when you feel the pain, and what makes it better or worse. Also let your provider know if you have other symptoms such as: Fever Tiredness Upset stomach (nausea) Vomiting Changes in bathroom habits Blood in the stool or black, tarry stool Weight loss that you can't explain (involuntary weight loss?) Also report any family history of stomach or intestinal problems, or cancers. Tell your provider about all your alcohol use and drug use. Tell your provider about all medicines you use, including herbs, vitamins, and supplements. Treating abdominal pain Some causes of pain need emergency medical treatment right away. These include appendicitis or a bowel blockage. Other problems can be treated with rest, fluids, or medicines. Your healthcare provider can give you specific instructions for treatment or self-care based on what is causing your pain. If you have vomiting or diarrhea, sip water or other clear fluids. When you are ready to eat solid foods again, start with small amounts of fiym-ih-gfqcib, low- fat foods. These include apple sauce, toast, or crackers. When to get medical care Call 911 or go to the hospital right away if you: Can t pass stool and are vomiting Are vomiting blood or have bloody diarrhea or black, tarry diarrhea Have chest, neck, or shoulder pain Feel like you might pass out Have pain in your shoulder blades with nausea Have sudden, severe belly pain Have new, severe pain unlike any you have felt before Have a belly that is rigid, hard, and hurts to touch Call your healthcare provider if you have: Pain for more than 5 days Bloating for more than 2 days Diarrhea for more than 5 days A fever of 100.4 F (38 C) or higher, or as directed by your healthcare provider Pain that gets worse Weight loss for no reason Continued lack of appetite Blood in your stool How to prevent abdominal pain Here are some tips to help prevent abdominal pain: Eat smaller amounts of food at each meal. Don't eat greasy, fried, or other high-fat foods. Don't eat foods that give you gas. Exercise regularly. Drink plenty of fluids. To help prevent GERD symptoms: Quit smoking. Reduce alcohol and foods that increase stomach acid. Don't use aspirin or ckof-bxk-ewygxdh pain and fever medicines, if possible. This includes nonsteroidal anti-inflammatory drugs (NSAIDs). Lose excess weight. Finish eating at least 2 hours before you go to bed or lie down. Raise the head of your bed. 4528-4125 [employer] [address] [place] [address], [place] [address]. All rights reserved. This information is not intended as a substitute for professional medical care. Always follow yourhealthcare professional's instructions. Follow Up Care 02/04/2024 16:44:42 With:MERCED HUTCHINSON Address: [address] [place] [phone] When:2-4 days [facility] 05-23-2024 Note Discharge Instructions Thank you for allowing [facility] to assist you with your healthcare needs. The following is importantdischarge information regarding your hospital visit. Diagnosis from Today's Visit Right flank pain What to Do Next Instructions from Your Care Team Discharge Return to Work, School, or Sports (Return to Work, School, or Sports) - Ordered -- May return to: work, excuse 02/03 and 02/04, 02/04/24 18:22:00 EDT Post Acute Orders No qualifying data available. You Need to Schedule the Following Appointments Follow Up with MERCED HUTCHINSON When:Within 2-4 days Where:[address] [place] [phone] Allergies Advil Contrast dye Flagyl Motrin NSAIDS Toradol Toradol IV/IM aspirin penicillin Medications Please ask your primary doctor or pharmacist before taking any other medication not listed, including over the counter drugs, herbal medications, vitamins and or supplements as they may interact withyour home medications. What How Much When Instructions Last Dose Unchanged albuterol (albuterol MDI (90 mcg/ inh) CFC freeinhalation aerosol) 1 puff(s) by inhalation Every 4 hours as needed for as needed for wheezing Unchanged ARIPiprazole (ARIPiprazole 10 mg oral tablet) 1 tab(s) by mouth Once a day Unchanged atorvastatin (atorvastatin 20 mg oral tablet) 1 tab(s) by mouth Once a day Unchanged cholecalciferol (cholecalciferol 125 mcg (5000 intl units) oral capsule) 1 cap by mouth Once a day Unchanged escitalopram (Lexapro 10 mg oral tablet) 1 tab(s) by mouth Once a day Unchanged gabapentin (gabapentin 400 mg oral capsule) 1 cap by mouth Three (3) times a day Unchanged montelukast (montelukast 10 mg oral tablet) 1 tab(s) by mouth Daily at bedtime Unchanged pantoprazole (Protonix 40 mg oral enteric coated tablet) 1 tab(s) by mouth Once a day Please take this list to your next doctor s visit. Bring all medications you take, including over the counter medications, herbals and other supplements with you to your doctor s visit. Patients and families are reminded to discard old lists and to update any records with all medication providers or retail pharmacies. Education Materials Flank Pain, Uncertain Cause The flank is the area between your upper abdomen and your back. Pain there is often caused by a problem with your kidneys. It might be a kidney infection or a kidney stone. Other causes of flank paininclude spinal arthritis, a pinched nerve from a back injury, or a back muscle strain or spasm. The cause of your flank pain is not certain. You may need other tests. Home care Follow these tips when caring for yourself at home: You may use acetaminophen or ibuprofen to control pain, unless your health care provider prescribedanother medicine. If you have chronic liver or kidney disease, talk with your provider before taking these medicines. Also talk with your provider first if you ve ever had a stomach ulcer or GI bleeding. If the pain is coming from your muscles, you may get relief with ice or heat. During the first 2 days after the injury, put an ice pack on the painful area for 20 minutes every 2 to 4 hours. This will reduce swelling and pain. A hot shower, hot bath, or heating pad works well for a muscle spasm. You can start with ice, then switch to heat after 2 days. You might find that alternating ice and heatworks well. Use the method that feels the best to you. Follow-up care Follow up with your healthcare provider if your symptoms don t get better over the next few days. When to seek medical advice Call your healthcare provider right away if any of these happen: Repeated vomiting Fever of 100.4 F (38 C) or higher, or as directed by your health care provider Flank pain that gets worse Pain that spreads to the front of your belly (abdomen) Dizziness, weakness, or fainting Blood in your urine Burning feeling when you urinate or the need to urinate often Pain in one of your legs that gets worse Numbness or weakness in a leg [id number] [employer] [address] [place] [address], [place] [address]. All rights reserved. This information is not intended as a substitute for professional medical care. Always follow yourhealthcare professional's instructions. Abdominal Pain Abdominal pain is pain in the stomach or belly area. Everyone has this pain from time to time. In many cases it goes away on its own. But abdominal pain can sometimes be due to a serious problem, such as appendicitis. So it s important to know when to get help. Causes of abdominal pain There are many possible causes of abdominal pain. Common causes in adults include: Constipation, diarrhea, or gas Stomach acid flowing back up into the esophagus (acid reflux or heartburn) Severe acid reflux, called GERD (gastroesophageal reflux disease) A sore in the lining of the stomach or small intestine (peptic ulcer) Inflammation of the gallbladder, liver, or pancreas Gallstones or kidney stones Appendicitis Intestinal blockage An internal organ pushing through a muscle or other tissue (hernia) Urinary tract infections In women, menstrual cramps, fibroids, ovarian cysts, pelvic inflammatory disease, or endometriosis Inflammation or infection of the intestines, including Crohn's disease and ulcerative colitis Irritable bowel syndrome Diagnosing the cause of abdominal pain Your healthcare provider will give you a physical exam help find the cause of your pain. If needed,you will have tests. Belly pain has many possible causes. So it can be hard to find the reason for your pain. Giving details about your pain can help. Tell your provider where and when you feel the pain, and what makes it better or worse. Also let your provider know if you have other symptoms such as: Fever Tiredness Upset stomach (nausea) Vomiting Changes in bathroom habits Blood in the stool or black, tarry stool Weight loss that you can't explain (involuntary weight loss?) Also report any family history of stomach or intestinal problems, or cancers. Tell your provider about all your alcohol use and drug use. Tell your provider about all medicines you use, including herbs, vitamins, and supplements. Treating abdominal pain Some causes of pain need emergency medical treatment right away. These include appendicitis or a bowel blockage. Other problems can be treated with rest, fluids, or medicines. Your healthcare provider can give you specific instructions for treatment or self-care based on what is causing your pain. If you have vomiting or diarrhea, sip water or other clear fluids. When you are ready to eat solid foods again, start with small amounts of rvar-zx-hlyphx, low- fat foods. These include apple sauce, toast, or crackers. When to get medical care Call 911 or go to the hospital right away if you: Can t pass stool and are vomiting Are vomiting blood or have bloody diarrhea or black, tarry diarrhea Have chest, neck, or shoulder pain Feel like you might pass out Have pain in your shoulder blades with nausea Have sudden, severe belly pain Have new, severe pain unlike any you have felt before Have a belly that is rigid, hard, and hurts to touch Call your healthcare provider if you have: Pain for more than 5 days Bloating for more than 2 days Diarrhea for more than 5 days A fever of 100.4 F (38 C) or higher, or as directed by your healthcare provider Pain that gets worse Weight loss for no reason Continued lack of appetite Blood in your stool How to prevent abdominal pain Here are some tips to help prevent abdominal pain: Eat smaller amounts of food at each meal. Don't eat greasy, fried, or other high-fat foods. Don't eat foods that give you gas. Exercise regularly. Drink plenty of fluids. To help prevent GERD symptoms: Quit smoking. Reduce alcohol and foods that increase stomach acid. Don't use aspirin or kbbe-sze-vhemloy pain and fever medicines, if possible. This includes nonsteroidal anti-inflammatory drugs (NSAIDs). Lose excess weight. Finish eating at least 2 hours before you go to bed or lie down. Raise the head of your bed. 5668-9384 [employer] [address] [place] [address], [place] [address]. All rights reserved. This information is not intended as a substitute for professional medical care. Always follow yourhealthcare professional's instructions. Additional Information VACCINATE! IT SAVES LIVES! Members of the community who have not yet received the COVID-19 vaccine and would like to receive it can visit one of [facility] vaccine clinics. There are many vaccine clinic locations within the [facility]. For locations and available times, please visit www.gettheshot.coronavirus.[place].gov/. It is important to note that some COVID mobile vaccine clinics are held outdoors and may be canceled in rainy or stormy conditions. To learn more about pediatric vaccinations (ages 5-11), we invite you to visit the [employer] webpage. https://www.[employer].org/pages/0845-Jlvuc-Ixsbixfdxfq-Fljqecwfmj-Ecpfv-Wts stions.htmlTo learn more about the COVID-19 vaccine, we invite you to visit the CDC website for a list of frequently asked questions. https://www.cdc.gov/coronavirus/2019-ncov/vaccines/faq.html [employer] Patient Portal Access Instructions: Stay connected with your healthcare team and access your personal medical information anytime with the [employer] Patient Portal. If you would like a full copy of your medical records please contact the [facility] Medical Records Department Thursday through Thursday between 8a.m. and 4:30p.m. Please follow the directions below to access the portal: 1.Access the email account you provided upon registration to the hospital.2.Look for an invitation email from [facility].3.Open the email and access the invitation link: Accept Invitation to [employer]4.Fill in the required xiong to create your account. Sign into [email or web address] with your username and password that you created in the above steps to stay up to date. You can then view a summary of results, a summary of your visits, and the ability to download your summaries to your computer or send the information securely to a physician. Remember that your healthcare information is confidential, so carefully consider who you will allow to register on the [employer] Patient Portal for access to your information. You can also access the [email or web address] Patient Portal on the [employer]. Simply click on Health Records under HealthData and then click on the [employer] logo. HOW TO SAFELY DISPOSE OF PRESCRIPTION MEDICATIONS Please use one of the following methods to safely dispose of your unused medications. 1.Use a drug disposal kit: the drug disposal pouch allows you to safely discard your old and unuseddrugs. Ask your nurse to give you one when you are discharged.2.Visit a local take-back location: Many local pharmacies and police departments have programs that collect old and unwanted prescriptiondrugs. Call your local pharmacy or go to http://Vidiowiki.[employer]/3L2Ly2g to find one close to you.3.Make use of household items: Use cat litter or old coffee grounds to dispose medications if other options arenot available. Mix your drugs with these household products, seal them in an airtight container andthrow it into the garbage. Call [facility]: [phone] to be sure your drugs can be disposed of in this way. Some medicines may require a different approach.4.Never flush your medications down the toilet. IF YOU HAVE BEEN PRESCRIBED AN OPIOIDS FOR PAIN If you have been prescribed an opioid (such as hydrocodone, oxycodone or morphine), it is critical to understand the possible side effects and risks of opioid pain medications. Even when taken as directed, opioids can have several side effects including: Tolerance, meaning you might need to take more of a medication for the same pain relief. Nausea, vomiting and/or constipation. Sleepiness, dizziness, dry mouth, confusion, depression or itching. Physical dependence, meaning you have withdrawal symptoms when a medication is stopped ? this can develop within a few days. KNOW YOUR RESPONSIBILITIES It is important to know exactly how much and how often to take the opioid pain medications you are prescribed. Never take opioids in higher amounts or more often than prescribed. Do not combine opioids with alcohol or other drugs that cause drowsiness, such as benzodiazepines, also known as benzos,including diazepam and alprazolam, muscle relaxants or sleep aids. Never sell or share prescriptionopioids. This is illegal. Store opioids in a secure place and out of reach of others (including children, family, friends and visitors). The last page(s) of this document has been signed and retained as a CHART COPY Signatures Patient Education Materials Flank Pain, Uncertain Cause Abdominal Pain Medication Leaflets My discharge plan and instructions have been reviewed and explained to me and I,SALLY VARGAS understand my current condition and have read and understand these discharge instructions. I have received a written copy of the plan/instructions. If I have questions, I am aware that I should contact my doctor. 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 Multiplanar reformatted images are provided for review. Automated exposure control, iterative reconstruction, and/or weight based adjustment of the mA/kV was utilized to reduce the radiation dose to as low as reasonably achievable. COMPARISON: CT abdomen/pelvis 02/26/2023 HISTORY: ORDERING SYSTEM PROVIDED HISTORY: Reason for Exam: abdominal pain. Right flank pain with nausea and vomiting. Burning with urination, history of stones. FINDINGS: Visualized lower thorax is unremarkable. Numerous hepatic cysts. The pancreas, spleen, and adrenal glands are unremarkable. Cholecystectomy. The right kidney and. Are unremarkable. Multiple nonobstructive left renal calculi. The urinary bladder is unremarkable. Hysterectomy. No free pelvic fluid. No pathologically enlarged pelvic or inguinal lymph nodes. The large and small bowel are normal in caliber. No pericecal inflammation. No free intraperitoneal air. No pathologically enlarged abdominal lymph nodes. The abdominal aorta is normal in caliber. Minor multilevel degenerative changes of the spine. No acute osseous findings. IMPRESSION: Nonobstructive left renal nephrolithiasis. I have personally reviewed the images of this examination and agree with the resident's findings and interpretation. Interpreted by: Flex Fishman Preliminary Report By: Jonathan Mendes Electronically signed By Flex Fishman Dictated Date: 02/04/2024 5:52:42 PM Prelim Date: 02/04/2024 6:11:16 PM Sign Date: 02/04/2024 6:11:16 PM Ordering Provider: [facility]AN [facility]UN[facility]05-19-2024 Hospital Discharge instructions Patient Education 01/30/2024 23:54:52 Abdominal Pain Abdominal Pain Abdominal pain is pain in the stomach or belly area. Everyone has this pain from time to time. In many cases it goes away on its own. But abdominal pain can sometimes be due to a serious problem, such as appendicitis. So it s important to know when to get help. Causes of abdominal pain There are many possible causes of abdominal pain. Common causes in adults include: Constipation, diarrhea, or gas Stomach acid flowing back up into the esophagus (acid reflux or heartburn) Severe acid reflux, called GERD (gastroesophageal reflux disease) A sore in the lining of the stomach or small intestine (peptic ulcer) Inflammation of the gallbladder, liver, or pancreas Gallstones or kidney stones Appendicitis Intestinal blockage An internal organ pushing through a muscle or other tissue (hernia) Urinary tract infections In women, menstrual cramps, fibroids, ovarian cysts, pelvic inflammatory disease, or endometriosis Inflammation or infection of the intestines, including Crohn's disease and ulcerative colitis Irritable bowel syndrome Diagnosing the cause of abdominal pain Your healthcare provider will give you a physical exam help find the cause of your pain. If needed,you will have tests. Belly pain has many possible causes. So it can be hard to find the reason for your pain. Giving details about your pain can help. Tell your provider where and when you feel the pain, and what makes it better or worse. Also let your provider know if you have other symptoms such as: Fever Tiredness Upset stomach (nausea) Vomiting Changes in bathroom habits Blood in the stool or black, tarry stool Weight loss that you can't explain (involuntary weight loss?) Also report any family history of stomach or intestinal problems, or cancers. Tell your provider about all your alcohol use and drug use. Tell your provider about all medicines you use, including herbs, vitamins, and supplements. Treating abdominal pain Some causes of pain need emergency medical treatment right away. These include appendicitis or a bowel blockage. Other problems can be treated with rest, fluids, or medicines. Your healthcare provider can give you specific instructions for treatment or self-care based on what is causing your pain. If you have vomiting or diarrhea, sip water or other clear fluids. When you are ready to eat solid foods again, start with small amounts of arwn-fm-rienpy, low- fat foods. These include apple sauce, toast, or crackers. When to get medical care Call 911 or go to the hospital right away if you: Can t pass stool and are vomiting Are vomiting blood or have bloody diarrhea or black, tarry diarrhea Have chest, neck, or shoulder pain Feel like you might pass out Have pain in your shoulder blades with nausea Have sudden, severe belly pain Have new, severe pain unlike any you have felt before Have a belly that is rigid, hard, and hurts to touch Call your healthcare provider if you have: Pain for more than 5 days Bloating for more than 2 days Diarrhea for more than 5 days A fever of 100.4 F (38 C) or higher, or as directed by your healthcare provider Pain that gets worse Weight loss for no reason Continued lack of appetite Blood in your stool How to prevent abdominal pain Here are some tips to help prevent abdominal pain: Eat smaller amounts of food at each meal. Don't eat greasy, fried, or other high-fat foods. Don't eat foods that give you gas. Exercise regularly. Drink plenty of fluids. To help prevent GERD symptoms: Quit smoking. Reduce alcohol and foods that increase stomach acid. Don't use aspirin or erde-dgt-lyjcnji pain and fever medicines, if possible. This includes nonsteroidal anti-inflammatory drugs (NSAIDs). Lose excess weight. Finish eating at least 2 hours before you go to bed or lie down. Raise the head of your bed. [id number] [employer] [address] [place] [address], [place] [address]. All rights reserved. This information is not intended as a substitute for professional medical care. Always follow yourhealthcare professional's instructions. 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 The following is importantdischarge information regarding your hospital visit. Diagnosis from Today's Visit Abdominal pain What to Do Next Instructions from Your Care Team No qualifying data available. Post Acute Orders No qualifying data available. You Need to Schedule the Following Appointments Follow Up with BLUE ROSE DO When: When:Within 2-4 days Where:[address] [place] [address]- [phone] Follow Up with MERCED HUTCHINSON When: When:Within 2-4 days Where:[address] [place] [address]- [phone] Allergies Advil Contrast dye Flagyl Motrin NSAIDS Toradol Toradol IV/IM aspirin penicillin Medications Please ask your primary doctor or pharmacist before taking any other medication not listed, including over the counter drugs, herbal medications, vitamins and or supplements as they may interact withyour home medications. What How Much When Instructions Last Dose Unchanged albuterol (albuterol MDI (90 mcg/ inh) CFC freeinhalation aerosol) 1 puff(s) by inhalation Every 4 hours as needed for as needed for wheezing Unchanged ARIPiprazole (ARIPiprazole 10 mg oral tablet) 1 tab(s) by mouth Once a day Unchanged atorvastatin (atorvastatin 20 mg oral tablet) 1 tab(s) by mouth Once a day Unchanged cholecalciferol (cholecalciferol 125 mcg (5000 intl units) oral capsule) 1 cap by mouth Once a day Unchanged escitalopram (Lexapro 10 mg oral tablet) 1 tab(s) by mouth Once a day Unchanged gabapentin (gabapentin 400 mg oral capsule) 1 cap by mouth Three (3) times a day Unchanged montelukast (montelukast 10 mg oral tablet) 1 tab(s) by mouth Daily at bedtime Unchanged pantoprazole (Protonix 40 mg oral enteric coated tablet) 1 tab(s) by mouth Once a day Please take this list to your next doctor s visit. Bring all medications you take, including over the counter medications, herbals and other supplements with you to your doctor s visit. Patients and families are reminded to discard old lists and to update any records with all medication providers or retail pharmacies. Education Materials Abdominal Pain Abdominal pain is pain in the stomach or belly area. Everyone has this pain from time to time. In many cases it goes away on its own. But abdominal pain can sometimes be due to a serious problem, such as appendicitis. So it s important to know when to get help. Causes of abdominal pain There are many possible causes of abdominal pain. Common causes in adults include: Constipation, diarrhea, or gas Stomach acid flowing back up into the esophagus (acid reflux or heartburn) Severe acid reflux, called GERD (gastroesophageal reflux disease) A sore in the lining of the stomach or small intestine (peptic ulcer) Inflammation of the gallbladder, liver, or pancreas Gallstones or kidney stones Appendicitis Intestinal blockage An internal organ pushing through a muscle or other tissue (hernia) Urinary tract infections In women, menstrual cramps, fibroids, ovarian cysts, pelvic inflammatory disease, or endometriosis Inflammation or infection of the intestines, including Crohn's disease and ulcerative colitis Irritable bowel syndrome Diagnosing the cause of abdominal pain Your healthcare provider will give you a physical exam help find the cause of your pain. If needed,you will have tests. Belly pain has many possible causes. So it can be hard to find the reason for your pain. Giving details about your pain can help. Tell your provider where and when you feel the pain, and what makes it better or worse. Also let your provider know if you have other symptoms such as: Fever Tiredness Upset stomach (nausea) Vomiting Changes in bathroom habits Blood in the stool or black, tarry stool Weight loss that you can't explain (involuntary weight loss?) Also report any family history of stomach or intestinal problems, or cancers. Tell your provider about all your alcohol use and drug use. Tell your provider about all medicines you use, including herbs, vitamins, and supplements. Treating abdominal pain Some causes of pain need emergency medical treatment right away. These include appendicitis or a bowel blockage. Other problems can be treated with rest, fluids, or medicines. Your healthcare provider can give you specific instructions for treatment or self-care based on what is causing your pain. If you have vomiting or diarrhea, sip water or other clear fluids. When you are ready to eat solid foods again, start with small amounts of hyxl-um-eraetj, low- fat foods. These include apple sauce, toast, or crackers. When to get medical care Call 911 or go to the hospital right away if you: Can t pass stool and are vomiting Are vomiting blood or have bloody diarrhea or black, tarry diarrhea Have chest, neck, or shoulder pain Feel like you might pass out Have pain in your shoulder blades with nausea Have sudden, severe belly pain Have new, severe pain unlike any you have felt before Have a belly that is rigid, hard, and hurts to touch Call your healthcare provider if you have: Pain for more than 5 days Bloating for more than 2 days Diarrhea for more than 5 days A fever of 100.4 F (38 C) or higher, or as directed by your healthcare provider Pain that gets worse Weight loss for no reason Continued lack of appetite Blood in your stool How to prevent abdominal pain Here are some tips to help prevent abdominal pain: Eat smaller amounts of food at each meal. Don't eat greasy, fried, or other high-fat foods. Don't eat foods that give you gas. Exercise regularly. Drink plenty of fluids. To help prevent GERD symptoms: Quit smoking. Reduce alcohol and foods that increase stomach acid. Don't use aspirin or cpii-yhm-sxaregr pain and fever medicines, if possible. This includes nonsteroidal anti-inflammatory drugs (NSAIDs). Lose excess weight. Finish eating at least 2 hours before you go to bed or lie down. Raise the head of your bed. [phone] [employer] [address] [place] [address]. All rights reserved. This information is not intended as a substitute for professional medical care. Always follow yourhealthcare professional's instructions. Additional Information VACCINATE! IT SAVES LIVES! Members of the community who have not yet received the COVID-19 vaccine and would like to receive it can visit one of [facility] vaccine clinics. There are many vaccine clinic locations within the [facility]. For locations and available times, please visit www.gettheshot.coronavirus.[place].gov/. It is important to note that some COVID mobile vaccine clinics are held outdoors and may be canceled in rainy or stormy conditions. To learn more about pediatric vaccinations (ages 5-11), we invite you to visit the [facility] webpage. https://www.[facility].org/pages/6843-Igxnp-Wrfzkxwwwuf-Nkjjubwojj-Fwtok-Hrs stions.htmlTo learn more about the COVID-19 vaccine, we invite you to visit the CDC website for a list of frequently asked questions. https://www.cdc.gov/coronavirus/2019-ncov/vaccines/faq.html [facility] Patient Portal Access Instructions: Stay connected with your healthcare team and access your personal medical information anytime with the [facility] Patient Portal. If you would like a full copy of your medical records please contact the [facility] Medical Records Department Thursday through Thursday between 8a.m. and 4:30p.m. Please follow the directions below to access the portal: 1.Access the email account you provided upon registration to the [facility].2.Look for an invitation email from [facility].3.Open the email and access the invitation link: Accept Invitation to [facility]4.Fill in the required xiong to create your account. Sign into [email or web address] with your username and password that you created in the above steps to stay up to date. You can then view a summary of results, a summary of your visits, and the ability to download your summaries to your computer or send the information securely to a physician. Remember that your healthcare information is confidential, so carefully consider who you will allow to register on the [facility] Patient Portal for access to your information. You can also access the [facility] Patient Portal on the [employer]. Simply click on Health Records under [employer] and then click on the [employer] logo. HOW TO SAFELY DISPOSE OF PRESCRIPTION MEDICATIONS Please use one of the following methods to safely dispose of your unused medications. 1.Use a drug disposal kit: the drug disposal pouch allows you to safely discard your old and unuseddrugs. Ask your nurse to give you one when you are discharged.2.Visit a local take-back location: Many local pharmacies and police departments have programs that collect old and unwanted prescriptiondrugs. Call your local pharmacy or go to http://bit.ly/9H1Du7g to find one close to you.3.Make use of household items: Use cat litter or old coffee grounds to dispose medications if other options arenot available. Mix your drugs with these household products, seal them in an airtight container andthrow it into the garbage. Call [facility]: [phone] to be sure your drugs can be disposed of in this way. Some medicines may require a different approach.4.Never flush your medications down the toilet. IF YOU HAVE BEEN PRESCRIBED AN OPIOIDS FOR PAIN If you have been prescribed an opioid (such as hydrocodone, oxycodone or morphine), it is critical to understand the possible side effects and risks of opioid pain medications. Even when taken as directed, opioids can have several side effects including: Tolerance, meaning you might need to take more of a medication for the same pain relief. Nausea, vomiting and/or constipation. Sleepiness, dizziness, dry mouth, confusion, depression or itching. Physical dependence, meaning you have withdrawal symptoms when a medication is stopped ? this can develop within a few days. KNOW YOUR RESPONSIBILITIES It is important to know exactly how much and how often to take the opioid pain medications you are prescribed. Never take opioids in higher amounts or more often than prescribed. Do not combine opioids with alcohol or other drugs that cause drowsiness, such as benzodiazepines, also known as benzos,including diazepam and alprazolam, muscle relaxants or sleep aids. Never sell or share prescriptionopioids. This is illegal. Store opioids in a secure place and out of reach of others (including children, family, friends and visitors). The last page(s) of this document has been signed and retained as a CHART COPY Signatures Patient Education Materials Abdominal Pain Medication Leaflets My discharge plan and instructions have been reviewed and explained to me and ISAM NICHOLE L understand my current condition and have read and understand these discharge instructions. I have received a written copy of the plan/instructions. If I have questions, I am aware that I should contact my doctor. 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 DC Cipro. [facility]05-07-2024 Miscellaneous Notes* Telephone Encounter - Gretchen Newton APRN.CNS - 01/19/2024 10:18 AM EDT Negative urine culture.. DC Cipro. [facility] History of Present illness Narrative* Gretchen Newton APRN.CNS - 01/19/2024 9:45 AM EDT AMBULATORY TELEPHONE VISIT Sally Vargas has consented to this telephone encounter. Persons Present: patient Chief Complaint/Reason: ER follow up, rash HPI: She was seen at [facility] on January 16, 2024. Noted UTI on quick check. Follow-up urinalysis was negative. Urine culture results showed no growt or patient's nameh is advised that they. Labs were otherwise unremarkable. CT completed by Dr. Rose in December showed a kidney stone. Currently notes no abdominal pain. No urinary complaints. States feeling improved on ciprofloxacin. States she has noted some areas of rash on her left arm left side of her neck and left breast. Itchy. No hives. No shortness of breath or other systemic complaints. Data Reviewed: Outside chart from [facility] reviewed. Assessment: (N39.0) Urinary tract infection without hematuria, site unspecified (primary encounter diagnosis) (L29.9) Pruritus (R21) Rash and nonspecific skin eruption Exam: Alert oriented answering questions appropriately in full sentences without cough wheeze or shortness of breath noted. No apparent distress. Small area of erythema left chest, left arm, left side of neck all 1 diameter or less, finding was fairly poor so visibility not ideal. Plan: 1. Urinary tract infection without hematuria, site unspecified - ICD9: 599.0, ICD10: N39.0 (primarydiagnosis) She notes feeling improved on Cipro so prefers to continue on with it. She has been taking Benadrylwith relief of pruritus and decreased rash. Okay to continue with Cipro as long as feeling well enough to do so. Unclear if rash areas related to the Cipro. May continue on with Benadryl or start taking cetirizine once daily completing Cipro. Kenalog cream as needed to itchy areas. She will let us know if not continuing to improve with these measures. ADD: Obtained urine culture after visit which showed negative for UTI. Discontinue Cipro. May continue on with cetirizine and Kenalog as needed. Planning [employer] message sent. 2. Pruritus - ICD9: 698.9, ICD10: L29.9 - TRIAMCINOLONE ACETONIDE 0.1 % TOPICAL CREAM 3. Rash and nonspecific skin eruption - ICD9: 782.1, ICD10: R21 . - CETIRIZINE 10 MG TABLET Total Time Spent: 10 minutes in visit Gretchen Newton APRN.ORE WASHER [facility] Telephone encounter Note * Telephone Encounter - Kristen Andrade LPN - 01/18/2024 5:05 PM EDT Spoke with patient and patient agreed to changing appointment to tomorrow. [facility]05-06-2024 Miscellaneous Notes* Telephone Encounter - Kristen Andrade LPN - 01/18/2024 5:05 PM EDT Spoke with patient and patient agreed to changing appointment to tomorrow. * Telephone Encounter - Gretchen Newton APRN.GARCIA - 01/18/2024 4:32 PM EDT Can we have a video visit tomorrow instead of the ? Please pull records today for review, I can not see anything in care everywhere. * Telephone Encounter - Lexy Desouza LPN - 01/18/2024 2:05 PM EDT Pt called in for an ER FU. Pt was seen at [facility] ER 01-16-24. Pt calling for an ER FU. Apt booked for 01-21-24. Dx with UTI and placed on Cipro. Pt is itching , hot and cold after taking the Cipro. Pt has rash on arms and neck and chest. Pt's ER visit is scheduled for a virtual. Pt is not able to come in for apt. No transportation. Pt aware for rashes you need to be seen. Pt reports she will be able to show her rash on her phone when she has the virtual apt. Again pt has no transportation. Please call pt if there is a problem. Lexy Desouza LPN [facility] Telephone encounter Note * Telephone Encounter - Gretchen Newton APRN.CNS - 01/18/2024 4:32 PM EDT Can we have a video visit tomorrow instead of the 9th? Please pull records today for review, I can not see anything in care everywhere. [facility]05-06-2024 Telephone encounter Note* Telephone Encounter - Lexy Desouza LPN - 01/18/2024 2:05 PM EDT Pt called in for an ER FU. Pt was seen at [facility] ER 01-16-24. Pt calling for an ER FU. Apt booked for 01-21-24. Dx with UTI and placed on Cipro. Pt is itching , hot and cold after taking the Cipro. Pt has rash on arms and neck and chest. Pt's ER visit is scheduled for a virtual. Pt is not able to come in for apt. No transportation. Pt aware for rashes you need to be seen. Pt reports she will be able to show her rash on her phone when she has the virtual apt. Again pt has no transportation. Please call pt if there is a problem. Lexy Desouza LPN [facility]05-04-2024 Discharge summary Author Mor Painter [facility] January 16, 2024 6:07pm Note Date/Time January 16, 2024 4:41pm [facility] Medical Records Department [address] [place] [address] Emergency Department Summary 01/16/24 MR#: [id number] Acct: [id number] Name: SALLY VARGAS Rep #:[id number] : 1980 43 From: Mor Painter MD PCP: Dr. Silverio Haley MD Status:RE G ER Location: ED HPI History of Present Illness Chief Complaint: Abd Pain Detail of Chief Complaint: Left-sided abdominal pain Informant: patient Onset/Context/Timing Onset: Weeks Timing: Continuous and Waxes and wanes Quality: Pain Location: Left side of the abdomen Current Severity: Mild Maximum Severity: Moderate Worsened by: Palpation Relieved by: Nothing Associated Symptoms Associated Symptoms: Told by Dr. Rose that she has a kidney stone Narrative Narrative: Patient is a 43-year-old woman with history of elevated lipase, who is status postcholecystectomy. Per Dr. Rose's note there is evidence of elevated lipasedating back to 2021 however there is no evidence of acute pancreatitis on any imaging studies. Patient was recently seen here. Apparently she has a care plan. The care plan that I have access to is 2018. Documentation is available is that patient has mental health issues. Patient is a poor informant. She denies headache, visual, ocular auditory symptoms. She denies cardiac respiratory symptoms. She does complain abdominal pain. She does report nausea. She does endorse cholecystectomy. She states she has been told she has pancreatitis. However Dr. Rose's notes there is no evidence of pancreatitis by imaging. She has had no black or maroon-colored stool. She denies diarrhea. She did have a recent CAT scan of the abdomen which revealed a renal calculus. She states the pain is on the left side. Palpation makes it worse. She does endorse dysuria and frequency. She denies trauma. Denies skin lesions. She denies constitutional symptoms. Prior similar symptoms: Yes (December 2023) Recent Illness/Hospitalization: Yes [facility] Medical History Abdominal pain Anxiety Bipolar disorder Chronic pain History of pancreatitis History of renal calculi History of uterine cancer (2006) Hyperlipidemia Incomplete right bundle branch block Intractable nausea and vomiting Kidney stones Lung nodule Migraine Obesity Ovarian cyst Pancreatitis Right tubo-ovarian mass Smoker Ureteral stone with hydronephrosis Home Medications gabapentin 400 mg capsule 400 mg PO TID PRN NEUROPATHY 10/03/20 [History Last Taken 12/02/23] quetiapine 50 mg tablet 50 - 100 mg PO QHS SLEEP 09/07/22 [History Last Taken 12/02/23] aripiprazole 10 mg tablet 10 mg PO DAILY DEPRESSION 10/25/23 [History Last Taken 12/02/23] lorazepam 0.5 mg tablet 0.5 mg PO DAILY PRN ANXIETY 10/25/23 [History Last Taken 12/02/23] diphenhydramine HCl 25 mg capsule (Banophen) 25 mg PO QHS ALLERGIES 12/03/23 [History Last Taken 12/02/23] oxycodone 5 mg tablet 5 mg PO Q4H PRN PRN Pain Score 6-10 3 days #15 tabs 12/04/23 [Rx Last Taken Unknown] metoclopramide HCl 10 mg tablet (Reglan) 10 mg PO Q6H PRN nausea and vomiting #30 tabs 12/26/23 [Rx Last Taken Unknown] tramadol 50 mg tablet 50 mg PO Q6H PRN pain 5 days #20 tabs 01/15/24 [Rx Last Taken Unknown] ciprofloxacin HCl 500 mg tablet 500 mg PO BID #14 TABLETS 01/16/24 [Rx Last Taken Unknown] Allergy/AdvReac Type Severity Reaction Status Date / Time Iodinated Contrast Media [CT] Allergy Anaphylaxis Verified 01/16/24 14:56 ketorolac tromethamine Allergy Rash Verified 01/16/24 14:56 [From Toradol] metronidazole [From Flagyl] Allergy Hives Verified 01/16/24 14:56 Penicillins Allergy Hives Verified 01/16/24 14:56 dicyclomine [From Bentyl] AdvReac Mild Hives Verified 01/16/24 14:56 aspirin AdvReac Upset Verified 01/16/24 14:56 Stomach Family History Aunt Breast cancer Grandfather CAD (coronary artery disease) Father Heart disease, Onset Age: 73 Triple bypass Mother Heart disease, Onset Age: 62 Other Diabetes Surgical History H/O ovarian cystectomy (09/2019) History of bilateral oophorectomy History of cholecystectomy History of hysterectomy History of tubal ligation Social History household members: none Smoking Status: Current every day smoker tobacco type: cigarettes Tobacco: How many years used: 15 substance use type: does not use ROS ROS ED Constitutional Constitutional ED: Denies chills, fever(s), subjective, sweats or weight loss Eyes Eyes: Denies blurry vision, change in vision or diplopia ENT ENT ED: Denies ear pain, rhinorrhea or sore throat Cardiovascular Cardiovascular: Denies chest pain, palpitations or racing heartbeat Respiratory/Chest Respiratory/Chest: Denies cough, dyspnea or dyspnea on exertion Gastrointestinal Gastrointestinal: Reports abdominal pain and nausea; Denies constipation, diarrhea, melena or vomiting Genitourinary Genitourinary ED: Reports dysuria and urinary frequency; Denies hematuria Musculoskeletal Musculoskeletal: Denies arthralgias, back pain or myalgias Integumentary Reports rash Neurologic Neurologic: Denies headache(s) or paresthesias Psychiatric Psychiatric: Reports depression Hematologic/Lymphatic Hematologic/Lymphatic: Reports systems reviewed and no addt'l complaints, exceptas documented EXAM Physical Exam Const Vital Signs: 01/16/24 14:57 01/16/24 16:56 01/16/24 17:49 Temperature 97.7 F L Temperature Source Temporal Pulse Rate 74 67 66 Respiratory Rate 16 16 16 Blood Pressure 123/83 H Blood Pressure Mean 96 Pulse Ox 96 97 98 Oxygen Delivery Method Room Air Room Air Room Air Positive well nourished, well developed and obese General Appearance ED: well developed, NAD and pallor Nutritional Appearance: obese HEENT Reports moist mucous membranes HEENT Narrative: Head is atraumatic normocephalic. Ears normal. Nares patent. Posterior pharynx is normal. Eyes PERRL and EOMs intact bilaterally General Eye ED: Negative for pale conjunctiva or scleral icterus Neck no lymphadenopathy, supple and no JVD Chest Wall inspection of chest normal and palpation of chest normal Resp normal respiratory effort and clear to auscultation bilaterally Cardio regular rate, regular rhythm, S1 normal heart sound, S2 normal heart sound and no murmurs GI normal to inspection, nondistended, normoactive bowel sounds, non-distended and no masses; Negative for non-tender or hepatosplenomegaly Palpation: soft and tender LUQ Back/Spine no CVA tenderness Extremity normal to inspection General Extremety ED: Negative for edema or tenderness General Extremity: Negative for edema Neuro oriented x3 and CN's II-XII intact bilaterally Sensorium / Orientation: alert Psych Mood & Affect: depressed Skin no rashes or lesions noted, no wounds and skin turgor normal General Skin Exam: elasticity normal and pallor; Negative for jaundice MDM MDM MDM Narrative Medical decision making narrative: With history of elevated lipase and left upper quadrant pain will obtain lipase as well as liver enzymes CBC and electrolyte panel. Since patient has a care plan she was not given any opiate analgesic. She reports that the tramadol doesnot help. She reports a rash to ketorolac. She reports hives to Bentyl. Will obtain UA because of her urinary symptoms. Patient was informed a kidney stone does not cause pain. She informed me that Dr. Rose said she had a kidney stone. I informed her I am aware she has a kidney stone. Again I told her thatkidney stones do not cause pain. The pain probably is due to something else andwill order appropriate test to determine the etiology if possible. History & Record Review Additional record(s) reviewed:: Prior outpatient record, Prior ED visit and Prior labs Lab Data Attestation: I reviewed the patient's lab results. Lab results narrative: CBC is normal. Comprehensive metabolic panel is remarkable slight elevation of creatinine at 1.12 with an estimated GFR of 56. Urine is consistent with infection. Urine culture was sent. Based on patient's allergies and most likely organism patient was placed on ciprofloxacin. She has allergy to tetracycline, penicillin with hives. Labs: Laboratory Results - last 24 hr 01/16/24 01/16/24 16:35 16:40 WBC 7.7 RBC 4.44 Hgb 13.2 Hct 41.4 MCV 93.2 MCH 29.7 MCHC 31.9 L RDW Std Deviation 43.6 RDW Coeff of Shun 12.8 Plt Count 246 MPV 10.5 Immature Gran % (Auto) 0.400 Neut % (Auto) 52.7 Lymph % (Auto) 37.1 [place]as % (Auto) 6.7 Eos % (Auto) 2.7 Baso % (Auto) 0.4 Absolute Neuts (auto) 4.0 Absolute Lymphs (auto) 2.84 Nucleated RBC % 0 Sodium 140 Potassium 3.7 Chloride 106 Carbon Dioxide 32.0 Anion Gap 2 L BUN 17 Creatinine 1.12 H Est GFR (MDRD) Af Amer 68 Est GFR (MDRD) Non-Af 56 L BUN/Creatinine Ratio 15.2 Glucose 95 Calcium 9.1 Total Bilirubin 0.70 AST 18 ALT 31 Alkaline Phosphatase 105 Total Protein 7.9 Albumin 4.5 Globulin 3.4 Albumin/Globulin Ratio 1.3 Lipase 39 Urine Color Yellow Urine Clarity Sl. Cloudy Urine pH 5.0 Ur Specific [place] 1.030 Urine Protein 30 H Urine Glucose (UA) Normal Urine Ketones 5 H Urine Occult Blood 10 H Urine Nitrite Negative Urine Bilirubin Negative Urine Urobilinogen Normal Ur Leukocyte Esterase Negative Urine RBC 0-5 SEEN Urine WBC 0-5 SEEN Ur Squamous Epith Cells 5-10 SEEN Urine Bacteria 2+ Urine Mucus 0 SEEN Discharge Plan Triage Chief Complaint: Abd Pain ED Provider: Mor Painter Dx/Rx/DC Orders Clinical Impression: Pyelonephritis of left kidney, History of uterine cancer, Hyperlipidemia, Left renal stone Instructions: ED Pyelonephritis, Female (Adult) Prescriptions: New ciprofloxacin HCl [ciprofloxacin HCl] 500 mg tablet 500 mg PO BID Qty: 14 0RF No Action tramadol 50 mg tablet 50 mg PO Q6H PRN (Reason: pain) 5 Days Qty: 20 0RF gabapentin 400 MG capsule 400 mg PO TID PRN (Reason: NEUROPATHY ) Patient Comments: PT STATES THEIR DOCTOR RECENTLY UPPED THE DOSE THAT CAN BE TAKEN quetiapine 50 mg tablet 50 - 100 mg PO QHS lorazepam 0.5 mg tablet 0.5 mg PO DAILY PRN (Reason: ANXIETY ) aripiprazole 10 mg tablet 10 mg PO DAILY diphenhydramine HCl [Banophen] 25 mg capsule 25 mg PO QHS oxycodone 5 mg Tablet 5 mg PO Q4H PRN PRN (Reason: Pain Score 6-10) 3 Days Qty: 15 0RF metoclopramide HCl [Reglan] 10 mg tablet 10 mg PO Q6H PRN (Reason: nausea and vomiting) Qty: 30 0RF Primary Care Provider: Silverio Haley Referrals: Silverio Haley MD [Primary Care Provider] - 3-5 Days Disposition Disposition: Home, Self Care What to do if you have Problems For any increased pain, shortness of breath, bleeding, nausea or vomiting, chestpain, or any unexpected problems, contact your Primary Care Provider. Call [facility] ([phone]) or report to the closest Emergency Room. Call 911 if necessary. 01/16/24 180 <Electronically signed by Mor Painter MD> Cosigner Signature (if applicable): CC: Dr. Silverio Haley MD ~ Signed [facility] Work Phone: [phone] [phone] Instructions* Patient Instructions* Silverio Haley MD - 01/01/2024 11:12 AM EDT Tylenol ES 500mg --max dose is 1000mg 4 times daily. From Up to Date for treating chronic pancreatitis: We generally use a combination of vitamin E (200 international units [IU]), vitamin C (500 mg), beta-carotene (5000 IU), selenium (500 mcg), and methionine (1000 mg). [facility] History of Present illness Narrative* Silverio Haley MD - 01/01/2024 10:53 AM EDT This note was created using [employer]. Subjective Sally Vargas is a 43 year old female. Patient presents with: ED Follow-up: [facility] ED follow up 12/26/23 for stomach pain SUBJECTIVE: Sally Vargas is a 43 year old year old lady here today for ED follow up appointment for reviewof medical conditions. From [facility]: Reports ongoing stomach issues for several months, with pain localized in the pancreas area. Previously diagnosed with chronic pancreatitis and has been taking Creon. Pain persists despite medication. Able to tolerate yogurt, chicken broth, and protein shakes recently without vomiting. Using Phenergan, which helps with nausea but makes them sleepy. Reports frequent bowel movements, sometimes witha chalky green appearance. Noticed blood in stools in the past but also has hemorrhoids. Mother hadpancreatic cancer, which causes anxiety. Reports chronic pain in the pancreas area, which worsens after eating. Also reports alternating constipation and diarrhea. Diagnosed with IBS and possibly haslactose intolerance. Reports a past hospitalization due to low sodium levels, which turned out to be a misdiagnosis. During that hospitalization, pancreatitis was triggered. Reports being able to keep down yogurt and chicken broth without vomiting. Additional discussion: Months for nausea. Wonders about pancreas. Had pancreatitis in the past. Able to keep down: Yogurt Protein shakes Chicken broth Water Meds. Not throwing everything up Phenergan helps. Takes first thing in AM\\. Metoclopramide did not help. Will see Dr. Rose in January. Seroquel was increased but still cannot sleep. Prior scopes were 4 years ago. Due next year based on prior one but aware might need another one sooner. Has to run to bathroom soon after eating. Diarrhea. Stools--BM this AM was chalky green. Not better when was taking prednisone for respiratory illness. Tylenol ES 2 pills every 4 hours. Discussed should be limited to 4grams PAST MEDICAL HISTORY Diagnosis Date Allergic rhinitis, cause unspecified 05/17/2008 Spring and summer Benign liver cyst 05/24/2010 CT scan at [facility] 11/2009 and 04/2010 showe 4 mm increase in size. No pain. No elevated LFTs on 03/11/2010. Calculus of kidney 05/17/[address] Nicolas: Hospitalized age 20, and again later -- no procedures so far ([facility], [address] [facility]) Cancer (HCC) COVID-19 virus infection 10/07/202109/2021 Diverticulosis Dysmenorrhea Hemorrhoids History of blood transfusion Impaired fasting glucose 05/17/2008 Sugar 104 fasting, 04/21 Intractable nausea and vomiting 05/25/2020 Marijuana use 07/10/2020 ER visit 07/06/2020, [place] M[facility]RAINE 05/17/2008 Has used imitrex with good response; Keeps Vicodin on hand when needed; Ovarian cyst 07/15/2012 Pancreatitis Smoker 05/17/2008 Started age 26, 1/2 a PPD Current Outpatient Medications Medication Sig promethazine (PHENERGAN) 25 mg tablet Take 1 tablet by mouth every 8 hours as needed for nausea/vomiting. [id number] (CREON 3) 3,000-9,500- 15,000 unit delayed release capsule Take 1 capsule by mouth three times a day with meals. gabapentin (NEURONTIN) 400 mg capsule Take 1 capsule by mouth every 12 hours. famotidine (PEPCID) 40 mg tablet Take 1 tablet by mouth once daily. QUEtiapine (SEROQUEL) 50 mg tablet Take 50 mg by mouth daily at bedtime. pantoprazole DR (PROTONIX) 40 mg tablet Take 1 tablet by mouth once daily. Take on empty stomach, 1/2 hr before meal. diphenhydrAMINE (BENADRYL) 25 mg capsule Take 50 mg by mouth at bedtime as needed. metoclopramide HCl (REGLAN) 10 mg tablet Take 10 mg by mouth every 6 hours as needed. (Patient not taking: Reported on 01/01/2024) benzonatate (TESSALON PERLES) 100 mg capsule Take 1 capsule by mouth three times a day as needed for cough. (Patient not taking: Reported on 01/01/2024) predniSONE (DELTASONE) 10 mg tablet Take 4 tabs daily for 3 days, then 2 tabs daily for 3 days, then 1 tab daily for 3 days with food. (Patient not taking: Reported on 01/01/2024) pantoprazole DR (PROTONIX) 40 mg tablet Take 1 tablet by mouth daily before breakfast. Take on empty stomach, 1/2 hr before meal. (Patient not taking: Reported on 01/01/2024) Cholecalciferol, Vitamin D3, 125 mcg (5,000 unit) cap Take 1 capsule by mouth once daily. (Patient not taking: Reported on 01/01/2024) cyanocobalamin (VITAMIN B-12) 1,000 mcg tab Take 1 tablet by mouth once daily. (Patient not taking:Reported on 01/01/2024) No current facility-administered medications for this visit. Review of Systems Objective BP 118/82 Pulse 64 Temp 36.1 C (97 F) Resp 18 Wt 94.3 kg (208 lb) LMP 08/10/2006 SpO2 98% BMI 38.77 kg/m Physical Exam Constitutional: General: She is not in acute distress. Appearance: Normal appearance. She is obese. She is not ill-appearing, toxic- appearing or diaphoretic. HENT: Head: Normocephalic. Eyes: Conjunctiva/sclera: Conjunctivae normal. Cardiovascular: Rate and Rhythm: Normal rate and regular rhythm. Heart sounds: Normal heart sounds. Pulmonary: Effort: Pulmonary effort is normal. Breath sounds: Normal breath sounds. Abdominal: General: Abdomen is flat. Bowel sounds are normal. There is no distension. Palpations: Abdomen is soft. Tenderness: There is no right CVA tenderness, left CVA tenderness, guarding or rebound. Comments: Tenderness in the lower abdomen, particularly to the left of the midline. Musculoskeletal: Right lower leg: No edema. Left lower leg: No edema. Skin: General: Skin is warm and dry. Coloration: Skin is not jaundiced. Neurological: General: No focal deficit present. Mental Status: She is alert and oriented to person, place, and time. Psychiatric: Mood and Affect: Mood normal. Behavior: Behavior normal. Thought Content: Thought content normal. Judgment: Judgment normal. - Lab results: White blood cell count, red blood cell count, platelets, total protein, albumin, lipase, liver enzymes, potassium, sodium, all normal. C- reactive protein elevated in November. - Imaging results: CT scan showed no signs of any masses. - Test results: IBD serology suggestive but not conclusive. Assessment and Plan Encounter Diagnosis ICD-10-CM 1. Chronic pancreatitis, unspecified pancreatitis type (HCC) K86.1 HYDROcodone- acetaminophen (NORCO) 5-325 mg per tablet Reviewed history and prior as well as recent evaluation and treatment/ Recent CTs did not show signs of pancreatitis.GI follow up as scheduled. 2. Abdominal pain, unspecified abdominal location R10.9 See below 3. Nausea and vomiting, unspecified vomiting type R11.2 See below. Noted that has been able to keep more fluids and some bland foods down Assessment: - Chronic pancreatitis - Possible IBS - Possible lactose intolerance - Anxiety related to mother's history of pancreatic cancer Plan: - Continue with Creon, Phenergan, Gabapentin, Pepcid, Seroquel. - Add Meloxicam for inflammation, to be taken with food. - Provide a short-term prescription for Acushnet for severe pain episodes. - Recommend Metamucil to bulk up stools and slow down bowel movements. - Discuss with psychiatrist the possibility of adding duloxetine for chronic pain. - Follow-up appointment with print shop stenographer next month. - Monitor for signs of anemia, blood in stools, and changes in bowel movements. - Avoid foods with MSG and limit dairy intake. - Consider adding vitamin E and C supplements to help with inflammation. - Check on the Creon dose with the print shop stenographer. - Schedule a check-up appointment in a couple of months. - Offered the option of virtual visits for future appointments. Note with portions drafted by Marqeta. Note reviewed, edited, and signed by the visit provider. I spent a total of 38 minutes on the date of the service which included [id number] patient care, completing clinical documentation, obtaining and/or reviewing separately obtained history, performing a medically appropriate examination, counseling and educating the patient/family/caregiver, ordering medications, tests, or procedures, independently interpreting results (not separately reported), and communicating results to the patient/family/caregiver. documented [facility] History of Present illness Narrative* Silverio Haley MD - 12/29/2023 4:51 PM EDT Reviewed ER 12/[address] scan (unremarkable), labs done. Mild elevated Cr. Spec grav not high. BUN 8. Urine negative for UTI and no ketones. Reglan given in ER and seemed to help some; was to get RX at pharmacy--ER provider noted that Dr. Rose was evaluating her for gastroparesis. Would avoid taking with Phenergan . Can do virtual visit if not able to come in. No opiates if just VV or if not indicated even if F2F. [facility] Miscellaneous Notes* Telephone Encounter - Silverio Haley MD - 12/25/2023 6:56 PM EDT Took compazine off medlist since not working The following approved medication requests have been transmitted electronically. Requested Prescriptions Signed Prescriptions Disp Refills promethazine (PHENERGAN) 25 mg tablet 30 tablet 1 Sig: Take 1 tablet by mouth every 8 hours as needed for nausea/vomiting. Authorizing Provider: SILVERIO HALEY MD Noted regarding the nonstop burning pain that gets worse with eating. After gets nausea settled down, can see whether able to keep Creon with food down. How is she doing from the cough and cold bug she had [facility]? Wasshe able to take the meds they prescribed? Or did the meds cause problems? * Telephone Encounter - Paradise Haley RN - 12/25/2023 3:31 PM EDT Patient calling back and notified of below. Patient asking if provider can send in prescription forphenergan to [facility]? Patient states that pain in left abdominal and it is a stabbing burning pain. Patient states that it is a non stop pain that gets worse with eating. Patient states that she will continue to take tylenol for the pain. Please review and advise, Paradise Haley RN * Telephone Encounter - Silverio Haley MD - 12/25/2023 12:51 PM EDT 1) Wish things were better at [facility] ER so they could have at least evaluated her level of dehydration and given her IVF and not given her attitude about drug-seeking behavior concernts. 2) Noted that patient requesting medication to treat symptoms today. Clarify if wants to try Zofran (since stated below that does not have an allergy to Zofran) that dissolve under the tongue since yesterday said could not keep anything down. If prefers another nausea med, since she has been on several others, see if has a preference. Phenergan? Noted Compazine was filled end of November according to chart (verify whether patient picked up the prescription and if helped at all--whether took three times daily routinely to control N/V) Also, could try scopolamine patch that place behind the ear and change every 72 hours 3) I cannot prescribe opiate for patient I have not seen--this is a [facility] institute policy. Also, primary care providers are not to prescribe opiates unless they have a diagnosis or at least a likely diagnosis so they know the opiate is indicated and will not make the condition worse. If does have gastroparesis that was not detected with the semisolid gastric emptying test, opiates would make N/V worse. Verify what the pain is--location, nature of the pain (cramping, pressure,etc),and any triggers aside from eating, etc? * Telephone Encounter - Paradise Haley RN - 12/25/2023 12:06 PM EDT Patient calling and asking the status of request. Paradise Haley RN * Telephone Encounter - Ashlyn Recio RN - 12/25/2023 11:00 AM EDT Pt called in to check and see if provider had called in pain medication for her yet. I told she hadnot, but we would call her and let her know once she did. * Telephone Encounter - Ivanna Torre RN - 12/25/2023 10:01 AM EDT Patient calls back in to also request something for pain (Acushnet) be sent to [facility]. Ivanna Torre RN * Telephone Encounter - Ashlyn Recio RN - 12/25/2023 9:08 AM EDT Pt states she went to [facility] ER last night like provider suggested and states,They knew it was me, and know me by name and refused to treat me. I waited for 6 hours after going in by squad, so I left because they think I'm just there for pain medication. This stomach issues is serious and I need the doctor to send in something for the pain and nausea that are going to help. I can't eat. She states she is never going to [facility] ER again. I let the Pt know I would pass this information on to the provider. Pt also states that Zofran isn't an allergy. I let her know I would tell the provider as they have to remove it from the allergy list. Please call and advise. * Telephone Encounter - Silverio Haley MD - 12/24/2023 10:43 PM EDT My apologies to the patient since I have not met her yet and am trying to help her while [place] is out but can only go by what is in the medical record that I can piece together. Not sure how to help her if she cannot take any medications, including ones like Zofran under the tongue to help with nausea (listed as allergy with unknown reaction on her Allergy list in Epic). Will need to help with transportation to appointments for future appointments needed to help with further evaluation and treatment. With regards to the Gastric Emptying study with oatmeal,--that was technically a semi-solid study, not solid food study. Okay if she prefers not to do that test and wait to see GI before does more testing. Will discuss with Mecred when she returns since she knows patient better. * Telephone Encounter - Rema Lehman MA - 12/24/2023 3:38 PM EDT Patient states she's unable to keep water down without throwing it up & declines new medication. Patient also states she completed the GASTRIC study with solid food: Oatmeal. Patient states all Dr. Haley & [facility] are going to do is tell me to go back to the hospital & I just get sent home. 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 Patient states they don't care about me & ended conversation. Rema Lehman MA * Telephone Encounter - Silverio Haley MD - 12/23/2023 7:51 PM EDT Below noted--if any signs of dehydration, but does not want to go back to [facility] ER, consider going toa [facility] ER ([place], [place], or [facility]). See whether patient wants to try metoclopromide and see if helps with vomiting by helping food and fluids to keep moving forward in her GI tract. Can take up to 3 to 4 times daily. Could take before meals three times daily. In case the gastric emptying study was not adequate to diagnose gastroparesis, see if willing to dothe test with solid food. The following approved medication requests have been transmitted electronically. Requested Prescriptions Pending Prescriptions Disp Refills metoclopramide HCl (REGLAN) 5 mg/5 mL solution 473 mL 1 Sig: Take 10 mL by mouth four times a day as needed. As directed Silverio Haley MD * Telephone Encounter - Ashlyn Recio RN - 12/22/2023 10:21 AM EDT Pt called and is notified of providers message and instructions. Pt states she has tried everythingprovider mentioned, but she can't keep anything down. She takes one bite and is full and throws it back up. She can't keep solids of fluids of any kind down. She states she has been to the ER 3 time in the last 2 month this has been going on and they keep sending her home. They kept her overnight for a day one time. The last time she went to [facility] and they gave her Vicodin and it just makes her sleepy but does nothing for the pain. She reports she doesn't have an appointment withDr Friend until 01/16/24, I asked if she tried calling them back and she states she has and they haveher on a waiting list. She said the pain was so bad she almost went to the ER last night. I told her if she is dehydrated she would need to go to the ER. Pt states the ER isn't going to do anything for her they will just send her back home, nobody cares that she is dehydrated and dying. I told her I would let provider know, but we can't give IV hydration here. She said not to even bother an hung u p. Ashlyn Recio RN * Telephone Encounter - Silverio Haley MD - 12/22/2023 1:52 AM EDT Last 10 Encounter Wt Readings: Date: Wt: 12/16/2023 94 kg (207 lb 3.7 oz) 10/09/2023 94.8 kg (209 lb) 10/07/2023 94.8 kg (209 lb) 09/10/2023 94.4 kg (208 lb 3.2 oz) 08/18/2023 94.3 kg (208 lb) 08/12/2023 94.6 kg (208 lb 9.6 oz) 07/02/2023 92.7 kg (204 lb 6.4 oz) 03/30/2023 92.1 kg (203 lb) 03/11/2023 93.8 kg (206 lb 12.8 oz) 03/09/2023 94.3 kg (207 lb 12.8 oz) Weight in the office has been stable.. Noted down from 213lbs last December. Up from March 2023. If she has lost weight since 12/15, suspect dehydration. Can she keep fluids down with electrolytes, like Gatorate, Powerade,Pedialyte? How about some juice? Even though usually avoid juice to help with preventing diabetes and promote healthy weight loss efforts, if not able to keep anything down, okay to try juice till able to eat better. Can she keep rice and chicken? Or rice with some chicken broth (kind of like a soup)? This is low residual and bland, so might stay down. How about nutritional supplements like Booster, Ensure and Premiere? Also, try small meals no more than a cup at a time every 3 hours to help keep up nutrition and hydration, while giving stomach and intestines time to keep things moving forward in case things are slow despite recent gastric emptying test. * Telephone Encounter - Kristen Andrade LPN - 12/21/2023 3:40 PM EDT Patient notified of providers message and verbalized understanding. Patient states that it doesn't matter what she eats it all comes back up. Recently she tried yogurt and apple sauce but couldn't keep these down as well. States this has been going on for 2 months and keeps losing weight. Patient states she does have an appointment with Dr. Rose but it is not til 01/16/24. Patient states she doesn't know what to do. She is in constant pain. Patient states that Merced know all about this and that is who she usually sees. It was explained that [facility] is out of the office this week so message was sent to Dr. Haley for review. Patient wanting to know if there is anything else she can do. Please advise. * Telephone Encounter - Silverio Haley MD - 12/21/2023 11:33 AM EDT Borderline upper limit of normal for emptying of semi-solid (oatmeal) at 56.85 minutes (upper limitof normal is 56 minutes). No gastroesophageal reflux (GERD) was seen. Does not look like has a problem with gastroparesis or gastric emptying at least with semi-solid food as was tested. If persistent problems that could be concerning for delayed gastric emptying with sold foods, should discuss with GI. Verify whether has follow up with GI scheduled. How are her symptoms now? Has she noticed symptoms worse with any particular foods? * Telephone Encounter - Ivanna Torre RN - 12/21/2023 10:09 AM EDT Patient calls to request results of Gastric Emptying Study completed at [facility] on 12/17/2022. Ordered byRosa but out this week. Sending to PCP. Patient also asking for hemoglobin results from last [facility] visit: 13.0 g/dL 12.0-15.0 Ivanna Torre RN documented in this encounterKn[facility]04-[facility] History of Present illness Narrative* Holly Fraga APRN.MANUELITO - 12/16/2023 6:16 PM EDT This note was created using NoteWriter. Subjective Sally Vargas is a 43 year old female. 43 year old female with no significant PMH presents for illness. Acute onset of symptoms was approximately 2 weeks ago +cough +non productive, and seems to be worsening. Harsh Keeps her up at night. +tobacco smoker, has not been able to smoke as much Also presents with complaints of sore throat Maybe just from the coughing, but want to make sure I don't have strep or pneumonia Denies fever or chills Denies hemoptysis Denies CP. 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 The history is provided by the patient. No analyst geochemical prospecting was used. Cough This is a new problem. The current episode started more than 1 week ago. The problem occurs constantly. The problem has been gradually worsening. The cough is Non-productive. There has been no fever.Associated symptoms include rhinorrhea and sore throat. Pertinent negatives include no chest pain, no chills, no sweats, no weight loss, no ear congestion, no ear pain, no headaches, no myalgias, no shortness of breath, no wheezing and no eye redness. She has tried nothing for the symptoms. She is a smoker. Her past medical history does not include bronchitis, pneumonia, bronchiectasis, COPD, emphysema or asthma. PAST MEDICAL HISTORY Diagnosis Date Allergic rhinitis, cause unspecified 05/17/2008spring and summer Benign liver cyst 05/24/2010 CT scan at [facility] 11/2009 and 04/2010 showe 4 mm increase in size. No pain. No elevated LFTs on 03/11/2010. Calculus of kidney 05/17/[address] Nicolas: Hospitalized age 20, and again later -- no procedures so far ([facility], [address] [facility]) Cancer (HCC) COVID-19 virus infection 10/07/202109/2021 Diverticulosis Dysmenorrhea Hemorrhoids History of blood transfusion Impaired fasting glucose 05/17/2008 Sugar 104 fasting, 04/21 Intractable nausea and vomiting 05/25/2020 Marijuana use 07/10/2020 ER visit 07/06/2020, [place] MIGRAINE 05/17/2008 Has used imitrex with good response; Keeps Vicodin on hand when needed; Ovarian cyst 07/15/2012 Pancreatitis Smoker 05/17/2008 Started age 26, 1/2 a PPD 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, mild esophagitis, 2 cm hiatal hernia EGD W/O BRSH SPEC VARICIES INJ 05/28/2020 LIG/TRNSXJ FLP TUBE ABDL/VAG APPR UNI/BI OOPHORECTOMY PARTIAL/TOTAL UNI/BI 2009 Oophorectomy right, still has left OOPHORECTOMY PARTIAL/TOTAL UNI/BI 01/2015 left removed PAST SURGICAL HISTORY OF uterine ablation PAST SURGICAL HISTORY OF cyst removal TOTAL ABDOMINAL HYSTERECT W/WO RMVL TUBE OVARY 08/31/2006 Hysterectomy, MICHELINE ALLERGIES Aspirin, Penicillins, Cephalexin, Chlorhexidine, Iodinated Contrast Media, Ondansetron, Promethazine, Toradol [Ketorolac], Asa [Salicylates], Contrast Dye [Iodine], Dicyclomine, and Ibuprofen MEDICATIONS [id number] (CREON 3) 3,000-9,500- 15,000 unit delayed release capsule Take 1 capsule by mouth three times a day with meals. prochlorperazine (COMPAZINE) 10 mg tablet Take 1 tablet by mouth three times a day as needed for nausea/vomiting. gabapentin (NEURONTIN) 400 mg capsule Take 1 capsule by mouth every [address] (PROTONIX) 40 mg tablet Take 1 tablet by mouth daily before breakfast. Take on empty stomach, 1/2 hr before meal. famotidine (PEPCID) 40 mg tablet Take 1 tablet by mouth once daily. Cholecalciferol, Vitamin D3, 125 mcg (5,000 unit) cap Take 1 capsule by mouth once daily. cyanocobalamin (VITAMIN B-12) 1,000 mcg tab Take 1 tablet by mouth once daily. QUEtiapine (SEROQUEL) 50 mg tablet Take 50 mg by mouth daily at bedtime. pantoprazole DR (PROTONIX) 40 mg tablet Take 1 tablet by mouth once daily. Take on empty stomach, 1/2 hr before meal. diphenhydrAMINE (BENADRYL) 25 mg capsule Take 50 mg by mouth at bedtime as needed. doxycycline (VIBRA-TABS) 100 mg tablet Take 1 tablet by mouth two times a day for 7 days. benzonatate (TESSALON PERLES) 100 mg capsule Take 1 capsule by mouth three times a day as needed for cough. predniSONE (DELTASONE) 10 mg tablet Take 4 tabs daily for 3 days, then 2 tabs daily for 3 days, then 1 tab daily for 3 days with food. FAMILY HISTORY Problem Relation Age of Onset Thyroid Mother unsure of details Arthritis Mother fibromyalgia Blood Disease Mother blood clots, unsure of details (aorta?) No Known Problems Father No Known Problems Sister No Known Problems Sister No Known Problems Brother Diabetes Maternal Grandmother Diabetes Maternal Grandfather Lipids Maternal Grandfather Stroke Maternal Grandfather Coronary Artery Disease Maternal Grandfather Cataract Maternal Grandfather Pancreatic Cancer Maternal Grandfather Diabetes Paternal Grandmother Diabetes Paternal Grandfather Coronary Artery Disease Paternal Grandfather No Known Problems Son No Known Problems Son Breast Cancer Maternal Aunt Lipids Maternal Uncle Coronary Artery Disease Maternal Uncle other (ovarian ca) Other maternal cousin Colon Cancer No Family History Social History Tobacco Use Smoking status: Every Day Packs/day: 0.50 Years: 3.00 Additional pack years: 0.00 Total pack years: 1.50 Types: Cigarettes Last attempt to quit: 01/12/2017 Years since quittin.9 Smokeless tobacco: Never Tobacco comments: Approx. 3 cigarettes daily-1 pack every week Vaping Use Vaping Use: Never used Substance Use Topics Alcohol use: Yes Comment: Occasional Drug use: Never Review of Systems Constitutional: Negative for chills and weight loss. HENT: Positive for congestion, rhinorrhea and sore throat. Negative for ear pain. Eyes: Negative for discharge, redness and itching. Respiratory: Positive for cough. Negative for apnea, chest tightness, shortness of breath and wheezing. Cardiovascular: Negative for chest pain. Gastrointestinal: Negative for abdominal pain, diarrhea, nausea and vomiting. Musculoskeletal: Negative for myalgias. Skin: Negative for color change, pallor, rash and wound. Allergic/Immunologic: Positive for environmental allergies and immunocompromised state. Negative for food allergies. Neurological: Negative for headaches. Hematological: Negative for adenopathy. Does not bruise/bleed easily. Psychiatric/Behavioral: Negative for agitation and behavioral problems. Objective BP 110/78 Pulse 80 Temp 36.5 C (97.7 F) (Tympanic) Resp 18 Wt 94 kg (207 lb 3.7 oz) LMP 08/10/2006 SpO2 97% BMI 38.63 kg/m Physical Exam Vitals and nursing note reviewed. Constitutional: General: She is not in acute distress. Appearance: Normal appearance. She is normal weight. She is not ill-appearing, toxic-appearing or diaphoretic. HENT: Head: Normocephalic and atraumatic. Right Ear: Ear canal and external ear normal. Left Ear: Ear canal and external ear normal. Nose: Congestion present. No rhinorrhea. Mouth/Throat: Mouth: Mucous membranes are moist. Pharynx: Posterior oropharyngeal erythema present. No oropharyngeal exudate. Eyes: General: Right eye: No discharge. Left eye: No discharge. Extraocular Movements: Extraocular movements intact. Conjunctiva/sclera: Conjunctivae normal. Pupils: Pupils are equal, round, and reactive to light. Cardiovascular: Rate and Rhythm: Normal rate and regular rhythm. Pulses: Normal pulses. Heart sounds: Normal heart sounds. No murmur heard. No friction rub. Pulmonary: Effort: Pulmonary effort is normal. No respiratory distress. Breath sounds: No stridor. Rhonchi present. No wheezing or rales. Chest: Chest wall: No tenderness. Abdominal: General: Abdomen is flat. There is no distension. Palpations: Abdomen is soft. There is no mass. Tenderness: There is no abdominal tenderness. There is no right CVA tenderness, left CVA tenderness, guarding or rebound. Hernia: No hernia is present. Musculoskeletal: General: No swelling, tenderness, deformity or signs of injury. Normal range of motion. Cervical back: Normal range of motion and neck supple. No rigidity. Right lower leg: No edema. Left lower leg: No edema. Lymphadenopathy: Cervical: Cervical adenopathy present. Skin: General: Skin is warm and dry. Capillary Refill: Capillary refill takes less than 2 seconds. Coloration: Skin is not jaundiced or pale. Findings: No bruising, erythema, lesion or rash. Neurological: General: No focal deficit present. Mental Status: She is alert and oriented to person, place, and time. Cranial Nerves: No cranial nerve deficit. Sensory: No sensory deficit. Motor: No weakness. Coordination: Coordination normal. Gait: Gait normal. Psychiatric: Mood and Affect: Mood normal. Behavior: Behavior normal. Thought Content: Thought content normal. Judgment: Judgment normal. Assessment and Plan ASSESSMENT/PLAN: 1. Acute cough - ICD9: 786.2, ICD10: R05.1 (primary diagnosis) X 2 weeks +tobacco usage - XR CHEST 2V FRONTAL/LAT-negative for acute process RX Tessalon Perles RX Prednisone taper RX Doxycline 2. URI, acute - ICD9: 465.9, ICD10: J06.9 - Group A strep molecular testing negative - Symptomatic treatment with prn analgesia - Supportive care with fluids and rest - The patient may also use OTC cough and cold meds as needed, warm salt water gargles, throat lozenges and/or OTC throat spray as needed, and nasal saline gtts and suction prn. - Follow up in 3-5 days if symptoms persist or sooner if worsening of symptoms Holly Fraga APRN.CLASSROOM TEACHER documented in this encounterKnox [facility]04-03-2024 History of Present illness Narrative* Mini Bunch RT(R) - 12/16/2023 5:10 PM EDT Radiology Service Progress Note PATIENT NAME: Sally Vargas DATE OF SERVICE: December 16, 2023 TIME: 5:22 PM PATIENT IDENTITY VERIFICATION COMPLETED USING TWO (2) IDENTIFIERS: Name and Date of confirmedby patient verbally. FALL SCREENING: Has the patient had 2 falls in the last year or 1 fall with injury or currently using an Ambulatory Assistive Device (Walker, Cane, Wheelchair, Crutches, etc.)? No PATIENT GENDER DATA: Female. status: : No status: NO. 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 Notified provider and received ok for change. Call placed to [facility] and verbal order given to Jeison that Gastric Emptying studying could be changed to oatmeal or semi-solid. Ivanna Torre RN documented in this encounterKnox [facility] Hospital04-01-2024 Miscellaneous Notes* Telephone Encounter - Ivanna Torre RN - 12/14/2023 3:54 PM EDT Patient calls to report that she is unable to print off the work excuse that was uploaded to to return to work. 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 Work excuse is electronically signed by [facility]. Copy placed in medical records for apple picker. Patient aware. Patient requested [facility]'s staff be notified. Message sent. Closing encounter. Ivanna Torre RN documented in this encounterKnox [facility] Hospital04-01-2024 History of Present illness Narrative* Merced Hutchinson APRN.CLASSROOM TEACHER - 12/14/2023 1:37 PM EDT VIRTUAL VISIT PROGRESS NOTE This is an encounter initiated for an established patient, parent or guardian not originating from a related Evaluation & Management service provided within the previous 7 days nor leading to an Evaluation & Management service or procedure within the next 24 hours or soonest available appointment. This is a virtual visit. It required patient-provider interaction for the medical decision making as documented below. Patient has consented to this encounter. Persons Present: patient Data Reviewed: recent hospital notes Patient has consented to patient-provider interaction via telephone/virtual visit for the medical decision making documented in this telephone/virtual visit encounter. Total Time Spent: 19 minutes SUBJECTIVE Sally Vargas is a 43 year old female here today for a virtual visit. Chief Complaint Patient presents with: Nausea & Vomiting NOLAN Zavala presents today acutely for a virtual visit on my chart via uberallom platform. She presents for concerns of nausea, vomiting. Recently seen in the ER and admitted to [facility] 12/02. Seen with GI, Dr. Rose. Questionable history of idiopathic pancreatitis. Still with issues with nausea, vomiting, diarrhea. She had an MRI and a lot of blood work done with GI, needs gastric emptying study. Current medications include Creon and compazine. She missed work and needs a note. Also asking about pain medication for abdominal pain. Her medications were reviewed today and her list is now up to date. Medications Current Outpatient Medications Medication Sig [id number]-[id number]-isuvnxa (CREON 3) 3,000-9,500- 15,000 unit delayed release capsule Take 1 capsule by mouth three times a day with meals. prochlorperazine (COMPAZINE) 10 mg tablet Take 1 tablet by mouth three times a day as needed for nausea/vomiting. gabapentin (NEURONTIN) 400 mg capsule Take 1 capsule by mouth every [address] (PROTONIX) 40 mg tablet Take 1 tablet by mouth daily before breakfast. Take on empty stomach, 1/2 hr before meal. famotidine (PEPCID) 40 mg tablet Take 1 tablet by mouth once daily. Cholecalciferol, Vitamin D3, 125 mcg (5,000 unit) cap Take 1 capsule by mouth once daily. cyanocobalamin (VITAMIN B-12) 1,000 mcg tab Take 1 tablet by mouth once daily. QUEtiapine (SEROQUEL) 50 mg tablet Take 50 mg by mouth daily at bedtime. pantoprazole DR (PROTONIX) 40 mg tablet Take 1 tablet by mouth once daily. Take on empty stomach, 1/2 hr before meal. diphenhydrAMINE (BENADRYL) 25 mg capsule Take 50 mg by mouth at bedtime as needed. No current facility-administered medications for this visit. ALLERGIES Allergen Reactions Aspirin Unknown Penicillins Rash Cephalexin Itching Chlorhexidine Rash Skin rash Iodinated Contrast * Anaphylaxis Ondansetron Unknown Promethazine Unknown Toradol [Ketorolac] Rash Asa [Salicylates] Other: See Comments ulcers Contrast Dye [Iodin* Shortness of Breath Dicyclomine Hives Ibuprofen GI Upset ACTIVE PROBLEM LIST Pain of Multiple Sites - 04/11/2021 (Mild priority) Comment: No Narcotics from the Office: Patient has a long standing Hx of complaints of multiple areas of pain with negative work ups. Patient has gone to the ER multiple times for pain medication. Generalized Anxiety Disorder - 03/31/2016 (A priority) Comment: Seeing [facility]. 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 Migraine Without Aura - 05/17/2008 (A priority) Comment: Has used imitrex with good response; Adjustment Insomnia - 03/31/2016 (B priority) Allergic rhinitis, cause unspecified - 05/17/2008 (B priority) Comment: Spring and summer Ovarian Cyst - 07/15/2012 (C priority) Benign Liver Cyst - 05/24/2010 (C priority, Chronic) Comment: CT scan at [facility] 11/2009 and 04/2010 showe 4 mm increase in size. No pain. No elevated LFTs on 03/11/2010. Calculus of Kidney - 05/17/2008 (C priority) Comment: Sees Dr. 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 Hydroureter, Left - 03/30/2017 Right Facial Numbness - 02/23/2017 Right Upper Extremity Numbness - 02/23/2017 Numbness of Right Lower Extremity - 02/23/2017 Weakness of Right Upper Extremity - 02/23/2017 Weakness of Right Lower Extremity - 02/23/2017 Vision Blurred - 02/23/2017 Lumbar Spine Pain - 02/23/2017 Cervical Spine Pain - 02/23/2017 Abnormal Mri, Lumbar Spine - 02/23/2017 Hydronephrosis of Left Kidney - 02/05/2017 Hydroureter On Left - 02/05/2017 Pain in Left Hip - 06/18/2016 Greater Trochanteric Bursitis - 06/18/2016 Social History Tobacco Use Smoking status: Every Day Packs/day: 0.50 Years: 3.00 Additional pack years: 0.00 Total pack years: 1.50 Types: Cigarettes Last attempt to quit: 01/12/2017 Years since quittin.9 Smokeless tobacco: Never Tobacco comments: Approx. 3 cigarettes daily-1 pack every week Vaping Use Vaping Use: Never used Substance Use Topics Alcohol use: Yes Comment: Occasional Drug use: Never Review of Systems Respiratory: Negative. Cardiovascular: Negative. Gastrointestinal: Positive for abdominal pain, diarrhea, nausea and vomiting. OBJECTIVE LMP 08/10/2006 Physical Exam Constitutional: Comments: During the virtual visit she is alert, oriented, breathing is quiet and not labored, no apparent distress. ASSESSMENT/PLAN: 1. Intractable nausea and vomiting - ICD9: 536.2, ICD10: R11.2 (primary diagnosis) She really needs to see GI, no clear etiology at this point, we can send a referral to see if Dr. Rose will see her as a hospital follow up to try and get an answer to her issues sooner since she missed her appointment with [facility]. - CONSULT TO GASTROENTEROLOGY - NM GASTRIC EMPTYING LIQUID 2. Nausea - ICD9: 787.02, ICD10: R11.0 - CONSULT TO GASTROENTEROLOGY - NM GASTRIC EMPTYING LIQUID 3. Abdominal pain, unspecified abdominal location - ICD9: 789.00, ICD10: R10.9 [facility] Hutchinson APRN.CNP Patient verbalizes understanding of instructions from today's visit and in agreement with treatmentplan. Questions answered. Agrees to call the office if symptoms do not improve or if they worsen. Return if symptoms worsen or fail to improve, for Keep next scheduled appointment.. Patient has consented to patient-provider interaction via telephone/virtual visit for the medical decision making documented in this telephone/virtual visit encounter. Total Time Spent: 19 minutes documented in this encounterKnox [facility] Hospital03-27-2024 Hospital Discharge instructions Additional Instructions Follow-up with Dr. Monster matamoros in 1 to 2 weeks as needed. Tylenol or ibuprofen Profen for headache as needed. Ice to injured area of head as needed. Return to ED for worsening or concerning symptoms.[facility] Work Phone: [phone]) 688-752803-22-2024 [facility]03-21-2024 Discharge summary Author Brina Quinteros [facility] December 03, 2023 9:59pm Note Date/Time December 03, 2023 3:4 4pm [facility] Medical Records Department [address] [place] [address] Emergency Department Summary 12/03/23 MR#: [id number] Acct: [id number] Name: SALLY VARGAS Rep #:[id number] : 1980 43 From: Ryan Bradford PCP: Dr. Silverio Haley MD Status:AD M IN Location: [facility] [id number] HPI <CHAZ Ayala - Last Filed: 12/03/23 21:59> HPI - GI History of Present Illness Chief Complaint: Abd Pain Narrative Narrative: Patient presenting today due to epigastric aching abdominal pain that radiates to her left upper quadrant that she has had constantly over the past 2 weeks. She reports a history of chronic pancreatitis and thinks that this feels similar. She was referred by her PCP to a upper GI specialist who she was supposed to see today, her insurance company was supposed to provide her a ride to the appointment but did not show up and she missed the appointment. She called the office to see what she should do and they encouraged her to come intothe emergency department due to her pain. She reports that she was seen in the ED about 2 weeks ago due to similar symptoms and had a workup including a CAT scan that came back unremarkable. She reports intermittent nausea and vomiting. She denies fevers, chills, hematemesis, melena/hematochezia, and urinary symptoms. PFS <CHAZ Ayala - Last Filed: 12/03/23 21:59> [facility] Medical History (Updated 12/03/23 @ 17:43 by Thi Hubbard) Anxiety Bipolar disorder Chronic pain History of renal calculi History of uterine cancer (2006) Hyperlipidemia Incomplete right bundle branch block Kidney stones Lung nodule Migraine Obesity Ovarian cyst Pancreatitis Right tubo-ovarian mass Smoker Ureteral stone with hydronephrosis Home Medications gabapentin 400 mg capsule 400 mg PO TID PRN NEUROPATHY 10/03/20 [History Last Taken 12/02/23] quetiapine 50 mg tablet 50 - 100 mg PO QHS SLEEP 09/07/22 [History Last Taken 12/02/23] aripiprazole 10 mg tablet 10 mg PO DAILY DEPRESSION 10/25/23 [History Last Taken 12/02/23] lorazepam 0.5 mg tablet 0.5 mg PO DAILY PRN ANXIETY 10/25/23 [History Last Taken 12/02/23] diphenhydramine HCl 25 mg capsule (Banophen) 25 mg PO QHS ALLERGIES 12/03/23 [History Last Taken 12/02/23] Allergy/AdvReac Type Severity Reaction Status Date / Time Iodinated Contrast Media [CT] Allergy Anaphylaxis Verified 12/03/23 14:22 ketorolac tromethamine Allergy Rash Verified 12/03/23 14:22 [From Toradol] metronidazole [From Flagyl] Allergy Hives Verified 12/03/23 14:22 Penicillins Allergy Hives Verified 12/03/23 14:22 dicyclomine [From Bentyl] AdvReac Mild Hives Verified 12/03/23 14:22 aspirin AdvReac Upset Verified 12/03/23 14:22 Stomach Family History Aunt Breast cancer Grandfather CAD (coronary artery disease) Father Heart disease, Onset Age: 73 Triple bypass Mother Heart disease, Onset Age: 62 Other Diabetes Surgical History (Updated 12/03/23 @ 17:42 by Thi Hubbard) H/O ovarian cystectomy (09/2019) History of bilateral oophorectomy History of cholecystectomy History of hysterectomy History of tubal ligation Social History household members: none Smoking Status: Current every day smoker tobacco type: cigarettes Tobacco: How many years used: 15 substance use type: does not use ROS <CHAZ Ayala - Last Filed: 12/03/23 21:59> ROS ED Constitutional Constitutional ED: Denies chills or fever(s) Cardiovascular Cardiovascular: Denies chest pain or palpitations Respiratory/Chest Respiratory/Chest: Denies cough or dyspnea Gastrointestinal Gastrointestinal: Reports abdominal pain, nausea and vomiting; Denies constipation, diarrhea or melena Genitourinary Genitourinary ED: Denies dysuria, hematuria or urinary urgency Musculoskeletal Musculoskeletal: Denies arthralgias or myalgias Integumentary Denies rash Neurologic Neurologic: Denies weakness EXAM <CHAZ Ayala - Last Filed: 12/03/23 21:59> Physical Exam Const Vital Signs: 12/03/23 14:23 12/03/23 16:21 Temperature 98.4 F Temperature Source Oral Pulse Rate 82 68 Respiratory Rate 18 14 Blood Pressure 126/67 H 119/68 Blood Pressure Mean 86 85 Pulse Ox 99 100 Oxygen Delivery Method Room Air Room Air Positive well nourished, well developed and no apparent distress General Appearance ED: well developed HEENT Reports normocephalic and head/scalp atraumatic Mouth ED: Yes moist mucous membranes normal Eyes PERRL and EOMs intact bilaterally Neck full ROM and supple Chest Wall inspection of chest normal Resp normal respiratory effort and clear to auscultation bilaterally Cardio regular rate and regular rhythm GI soft to palpation, non-distended and no masses GI Narrative: Minimal tenderness to the epigastrium and left upper quadrant.No rigidity, guarding, or peritoneal signs. Back/Spine normal ROM and normal to inspection Extremity normal to inspection and full ROM Neuro oriented x3, CN's II-XII intact bilaterally, moves all extremities, no focal motor deficits and no sensory deficits noted Sensorium / Orientation: awake and alert Psych mental status grossly normal and thought process normal Skin no rashes or lesions noted and no wounds <Dr. Ryan Garcia DO - Last Filed: 12/03/23 17:36> Physical Exam Const Vital Signs: 12/03/23 14:23 12/03/23 16:21 Temperature 98.4 F Temperature Source Oral Pulse Rate 82 68 Respiratory Rate 18 14 Blood Pressure 126/67 H 119/68 Blood Pressure Mean 86 85 Pulse Ox 99 100 Oxygen Delivery Method Room Air Room Air [facility] <CHAZ Ayala - Last Filed: 12/03/23 21:59> [facility] Narrative Medical decision making narrative: Patient presenting due to epigastric abdominal pain that radiates to her left upper quadrant that she has had for 2 weeks. She does take Creon and Protonix daily. She was seen in [place] ED about 2 weeks ago, I did review this record from 11/22/2023, CT scan shows fatty liver but otherwise is unremarkable. Lipaseat that time was unremarkable. She is nontoxic-appearing, vitals are unremarkable. Labs will be obtained to rule out leukocytosis, anemia, electrolyte abnormality, UVALDO, pancreatitis, and hepatobiliary etiology. She will be given IV fluids, Zofran, and morphine. Given she has had symptoms for 2weeks and her labs essentially are unremarkable, I do not feel that imaging is indicated at this time. She will be given additional analgesia and a p.o. challenge. Patient was unable to hold down the fluids and reported worsening abdominal pain. Given she is unable to tolerate fluids I do think she would benefit from admission, I will start maintenance fluids and speak with hospitalist. Lab Data Attestation: I reviewed the patient's lab results. Labs: Laboratory Results - last 24 hr 12/03/23 14:47 WBC 8.4 RBC 4.39 Hgb 13.0 Hct 40.5 MCV 92.3 MCH 29.6 MCHC 32.1 RDW Std Deviation 42.4 RDW Coeff of Shun 12.4 Plt Count 261 MPV 11.3 Immature Gran % (Auto) 0.700 Neut % (Auto) 45.2 L Lymph % (Auto) 44.6 H Pocahontas % (Auto) 6.8 Eos % (Auto) 2.0 Baso % (Auto) 0.7 Absolute Neuts (auto) 3.8 Absolute Lymphs (auto) 3.76 Nucleated RBC % 0 Sodium 139 Potassium 3.6 Chloride 108 H Carbon Dioxide 25.0 Anion Gap 6 BUN 10 Creatinine 1.02 Estim Creat Clear Calc 73.96 Est GFR (MDRD) Af Amer 76 Est GFR (MDRD) Non-Af 63 BUN/Creatinine Ratio 9.8 L Glucose 103 Calcium 9.4 Total Bilirubin 0.60 AST 20 ALT 35 Alkaline Phosphatase 102 Total Protein 7.5 Albumin 3.9 Globulin 3.6 Albumin/Globulin Ratio 1.1 Lipase 37 <Dr. Ryan Garcia, DO - Last Filed: 12/03/23 17:36> [facility] Narrative Medical decision making narrative: Patient presenting due to epigastric abdominal pain that radiates to her left upper quadrant that she has had for 2 weeks. She does take Creon and Protonix daily. She was seen in [place] ED about 2 weeks ago, I did review this record from 11/22/2023, CT scan shows fatty liver but otherwise is unremarkable. Lipaseat that time was unremarkable. She is nontoxic-appearing, vitals are unremarkable. Labs will be obtained to rule out leukocytosis, anemia, electrolyte abnormality, UVALDO, pancreatitis, and hepatobiliary etiology. She will be given IV fluids, Zofran, and morphine. Given she has had symptoms for 2weeks and her labs essentially are unremarkable, I do not feel that imaging is indicated at this time. She will be given additional analgesia and a p.o. challenge. Patient was unable to hold down the fluids and reported worsening abdominal pain. Given she is unable to tolerate fluids I do think she would benefit from admission, I will start maintenance fluids and speak with hospitalist. Interventions / MDM: Differential diagnosis: Pancreatitis, abdominal pain Diagnosis considered but do not suspect: N/A My EKG interpretation: N/A Imaging independently reviewed and interpreted by myself: N/A External documents reviewed: N/A Test considered but not ordered:N/A ED course: Attending note: Patient seen and evaluated with energy systems laboratory director. I perform my own [id number] evaluation. I agree with the plan of work-up. Continued abdominal pain mid abdomen to the left worse last 2 weeks. History of pancreatitis for the past few years. Gallbladder removed in 1998 prior to pancreatitis. Denies alcohol history. She was last seen 2 weeks ago at [place] reported CT scan labs were normal. She was sent home on Zofran for which she had at home. Had appointment with GI [place] [facility] today however her insurance ride did not pick her up. She had to call to cancel was referred here. Pain with any p.o. intake. She is on Protonix daily. She is started on Creon by her primary care team. EGD and colonoscopy the last couple years through the GI office reported normal. Exam tender palpation mid abdomen there is no guarding or rebound. Moist mucosal membranes. Evaluated after initial treatment with labs. Labs are normal lipase 37 normal liver enzymes white count 8.4. Normal electrolytes and creatinine 1.02. Attempted p.o. oxycodone with p.o. challenge however she vomited this up. IV fluids continued for maintenance, additional antiemetics. With intractable symptoms, discussed with hospitalist for admission. Re-evaluation: stable Disposition discussed with patient/family/significant other: Patient Case discussed with consulting clinician: Hospitalist This note was generated with Simple Emotionation software. It may contain incorrectwords, spelling, and punctuation that were not noted in checking the note beforesigning. Lab Data Labs: Laboratory Results - last 24 hr 12/03/23 14:47 WBC 8.4 RBC 4.39 Hgb 13.0 Hct 40.5 MCV 92.3 MCH 29.6 MCHC 32.1 RDW Std Deviation 42.4 RDW Coeff of Shun 12.4 Plt Count 261 MPV 11.3 Immature Gran % (Auto) 0.700 Neut % (Auto) 45.2 L Lymph % (Auto) 44.6 H Pocahontas % (Auto) 6.8 Eos % (Auto) 2.0 Baso % (Auto) 0.7 Absolute Neuts (auto) 3.8 Absolute Lymphs (auto) 3.76 Nucleated RBC % 0 Sodium 139 Potassium 3.6 Chloride 108 H Carbon Dioxide 25.0 Anion Gap 6 BUN 10 Creatinine 1.02 Estim Creat Clear Calc 73.96 Est GFR (MDRD) Af Amer 76 Est GFR (MDRD) Non-Af 63 BUN/Creatinine Ratio 9.8 L Glucose 103 Calcium 9.4 Total Bilirubin 0.60 AST 20 ALT 35 Alkaline Phosphatase 102 Total Protein 7.5 Albumin 3.9 Globulin 3.6 Albumin/Globulin Ratio 1.1 Lipase 37 Discharge Plan Dx/Rx/DC Orders Clinical Impression: History of pancreatitis, Intractable nausea and vomiting, Abdominal pain Disposition Disposition: Acute Care Hospital [facility] Discharge Date/Time: 12/03/23 17:27 What to do if you have Problems For any increased pain, shortness of breath, bleeding, nausea or vomiting, chestpain, or any unexpected problems, contact your Primary Care Provider. Call [facility] ([phone]) or report to the closest Emergency Room. Call 911 if necessary. 12/03/23 1736 <Electronically signed by Ryan Bradford> Cosigner Signature (if applicable): 12/03/23 2159 <Electronically signed by Brina WARE> CC: Dr. Silverio Haley MD ~ Signed [facility] Work Phone: 1(823) 818-511603-21-2024 History and physical note Author Jonh Geiger [facility] December 03, 2023 6:20pm Note Date/Time December 03, 2023 4:3 2pm [facility] Medical Records Department [address] [place] [address] H&P Exam - Hospitalist 12/03/23 1632 MR#: [id number] Acct: [id number] Name: SALLY VARGAS Rep #:[id number] : 1980 43 From: Jonh matthew DO PCP: Dr. Silverio Haley MD Status:AD M IN Location: [facility] LS258-8 HPI - General General Date of Admission: 12/03/23 Date of Service: 12/03/23 Chief Complaint: Intractable nausea and vomiting HPI Narrative SALLY VARGAS, is a 43 F who presented to [facility] ED on 12/03/2023 with intractable nausea and vomiting. Patient seen at bedside in the ED. Patient was laying in bed and conversing normally. She appeared to be in very mild distress which she reported was due to her abdominal pain. States that she has history of chronic pancreatitis and her last flareup was about 1 year ago. She has been on Creon since then. States that she was doing fairly well until a few weeks ago, when she felt like she was starting to have another flareup of her pancreatitis. She went to the ED at [place] about 2 weeks ago for this. Her CT abdomen pelvis was benign and her lipase level was noted to benormal at that time, so she was discharged with plan for outpatient follow-up. She was supposed to follow-up with the GI doc this morning but was unable to gettransportation to the appointment, so they recommended that she come to the ED for further evaluation. Noted to be hemodynamically stable in the ED. Lab workup is fairly benign including a normal lipase level. ED physician deferred abdominal imaging since she had just been scanned 2 weeks ago. They had her tryp.o. intake but she fairly quickly vomited what she had eaten. Hospitalist was then contacted for admission for intractable nausea and vomiting. Fairly extensive chart review completed including review of [facility] records. Patient was admitted to [facility] in early March 2023 with very similar symptoms. She was transferred to [place] in [place] for further management. She was seen there by Dr. Martinez with gastroenterology. Her imaging at that time was normal and her lipase and liver enzymes were also normal. Dr. Martinez mentioned that she had a history of pancreatitis but did not say that she had chronic pancreatitis. He was not particularly impressed with the patient's presentation and recommended that she could undergo a gastric emptying study as an outpatient. He recommended that she continue antinausea medication as neededand daily PPI going forward. However, he did not mention that the patient wouldneed to be on Creon. Patient states she saw a Dr. Young with GI in the office after that hospitalization and thinks that Dr. Young's [employer]INE[employer] started her on Creon. Unclear if the patient ever had the gastric emptying study done. Patient was hospitalized at [facility] in 2019 for significant abdominal pain. She wasfound to have a very elevated lipase in the 4000's at that time. Notably had had a cholecystectomy prior to that and liver enzymes were not elevated, so had no concern for gallbladder pancreatitis. Her pancreas appeared normal on CT abdomen pelvis at that time. On review of multiple CT scans of the abdomen, patient has always had a normal pancreas noted. She has had multiple liver cysts noted on several scans which have apparently been thought to be benign. The cause of her pancreatitis was unclear and thought to be possibly medication induced. Patient currently states that her abdominal pain feels similar to her pain over the past few weeks. She points to her epigastric region and over into her left upper quadrant when asked where the pain is. She denies any symptoms of acid reflux. States that the last time she was able to keep any significant amount of food down was about 2 weeks ago. States that she has nausea with vomiting within seconds after eating. She denies any episodes where she was able to keepfood down for 30 minutes to an hour or more and then had vomiting. States the vomiting is more liquid in consistency with stomach acid. States that she has been having fairly normal bowel movements every day over that timeframe. Deniesany bilious vomiting. Patient does have a BMI of 39, denies losing any weight recently that she is aware of. She denies any recent fevers or chills. Denies any chest pain or shortness of breath. No other acute concerns this time. [facility] Medical History (Updated 12/03/23 @ 17:43 by Thi Hubbard) Anxiety Bipolar disorder Chronic pain History of renal calculi History of uterine cancer (2006) Hyperlipidemia Incomplete right bundle branch block Kidney stones Lung nodule Migraine Obesity Ovarian cyst Pancreatitis Right tubo-ovarian mass Smoker Ureteral stone with hydronephrosis Home Medications gabapentin 400 mg capsule 400 mg PO TID PRN NEUROPATHY 10/03/20 [History Last Taken 12/02/23] quetiapine 50 mg tablet 50 - 100 mg PO QHS SLEEP 12/25/22 [History Last Taken 12/02/23] aripiprazole 10 mg tablet 10 mg PO DAILY DEPRESSION 10/25/23 [History Last Taken 12/02/23] lorazepam 0.5 mg tablet 0.5 mg PO DAILY PRN ANXIETY 10/25/23 [History Last Taken 12/02/23] diphenhydramine HCl 25 mg capsule (Banophen) 25 mg PO QHS ALLERGIES 12/03/23 [History Last Taken 12/02/23] Allergy/AdvReac Type Severity Reaction Status Date / Time Iodinated Contrast Media [CT] Allergy Anaphylaxis Verified 12/03/23 14:22 ketorolac tromethamine Allergy Rash Verified 12/03/23 14:22 [From Toradol] metronidazole [From Flagyl] Allergy Hives Verified 12/03/23 14:22 Penicillins Allergy Hives Verified 12/03/23 14:22 dicyclomine [From Bentyl] AdvReac Mild Hives Verified 12/03/23 14:22 aspirin AdvReac Upset Verified 12/03/23 14:22 Stomach Family History Aunt Breast cancer Grandfather CAD (coronary artery disease) Father Heart disease, Onset Age: 73 Triple bypass Mother Heart disease, Onset Age: 62 Other Diabetes Surgical History (Updated 12/03/23 @ 17:42 by Thi Hubbard) H/O ovarian cystectomy (09/2019) History of bilateral oophorectomy History of cholecystectomy History of hysterectomy History of tubal ligation Social History household members: none Smoking Status: Current every day smoker tobacco type: cigarettes Tobacco: How many years used: 15 substance use type: does not use ROS Constitutional Constitutional: Denies chills, fatigue, fever(s) or weakness Cardiovascular Cardiovascular: Denies chest pain Respiratory/Chest Respiratory/Chest: Denies cough, shortness of breath at rest or wheezing Gastrointestinal Gastrointestinal: Reports abdominal pain; Denies constipation or diarrhea Musculoskeletal Musculoskeletal: Denies arthralgias, back pain or myalgias Neurologic Neurologic: Denies dizziness, focal weakness or headache(s) Vital Signs Vital Signs Vital Signs: 12/03/23 14:23 Temperature 98.4 F Temperature Source Oral Pulse Rate 82 Respiratory Rate 18 Blood Pressure 126/67 H Blood Pressure Mean 86 Pulse Ox 99 Oxygen Delivery Method Room Air Weight Weight: 94.7 kg Body Mass Index (BMI) 39.4 Physical Exam Const alert, oriented x3 and no apparent distress Constitutional Narrative: Middle-age female, morbidly obese, laying fairly comfortably in bed, conversing normally, had some intermittent wincing noted throughout our conversation but otherwise did not appear to be in any acute distress. General Appearance: cooperative and comfortable HEENT normocephalic, head/scalp atraumatic, hearing grossly normal bilaterally, nasal mucous membranes and turbinates normal and moist oral mucous membranes Eyes PERRL, EOMs intact bilaterally and conjunctivae normal Neck full ROM Lymph Lymphatic: no lymphadenopathy noted Chest inspection of chest normal Resp normal respiratory effort, normal air movement, no use of accessory muscles and clear to auscultation bilaterally Cardio regular rate, regular rhythm, no murmurs and peripheral pulses 2+ throughout GI GI Narrative: Abdomen soft and nondistended. Mild tenderness to palpation noted in the epigastric and left upper quadrant regions. No guarding or rebound tenderness noted. Back/Spine normal ROM Extremity normal to inspection, full ROM and no pedal edema Skin no rashes or lesions noted Neuro moves all extremities and no focal motor deficits Speech: speech normal Psych mental status grossly normal Results Lab / Micro Data 12/03/23 14:47 12/03/23 14:47 Labs: Laboratory Results - last 24 hr 12/03/23 14:47: WBC 8.4, RBC 4.39, Hgb 13.0, Hct 40.5, MCV 92.3, MCH 29.6, MCHC 32.1, RDW Std Deviation 42.4, RDW Coeff of Shun 12.4, Plt Count 261, MPV 11.3, Immature Gran % (Auto) 0.700, Neut % (Auto) 45.2 L, Lymph % (Auto) 44.6 H, Pocahontas % (Auto) 6.8, Eos % (Auto) 2.0, Baso % (Auto) 0.7, Absolute Neuts (auto) 3.8, Absolute Lymphs (auto) 3.76, Nucleated RBC % 0, Sodium 139, Potassium 3.6, Chloride 108 H, Carbon Dioxide 25.0, Anion Gap 6, BUN 10, Creatinine 1.02, EstimCreat Clear Calc 73.96, Est GFR (MDRD) Af Amer 76, Est GFR (MDRD) Non-Af 63, BUN/Creatinine Ratio 9.8 L, Glucose 103, Calcium 9.4, Total Bilirubin 0.60, AST 20, ALT 35, Alkaline Phosphatase 102, Total Protein 7.5, Albumin 3.9, Globulin 3.6, Albumin/Globulin Ratio 1.1, Lipase 37 Assessment & Plan Assessment/Plan (1) Abdominal pain: (2) Intractable nausea and vomiting: PLAN: Plan Patient is a 43-year-old female who presented to [facility] ED on 12/03/2023 with abdominal pain and intractable nausea and vomiting. 1. Abdominal pain, intractable nausea and vomiting, reported history of chronicpancreatitis ? Presented with worsening epigastric abdominal pain, nausea/vomiting and inability to tolerate p.o. intake. Has reported history of chronic pancreatitisand was on Creon. Had episode of pancreatitis in 2019 with elevated lipase, no findings on imaging, otherwise unclear if patient actually has chronic pancreatitis. See HPI for further details. ? Vitals stable in the ED, normotensive, heart rate in 60s, afebrile, satting well on room air. Exam essentially benign. Lipase normal, labs otherwise fairly benign. CT abdomen pelvis 2 weeks ago with no concerning findings so imaging was not repeated here. ? Admit under inpatient status to [facility]. GI consulted. Will allow patient tohave a diet if she would like, though she states she cannot tolerate p.o. intake. Will run LR 75 cc/hr overnight and discontinue in the morning. Will dolow-dose oxycodone as needed for pain, Zofran for nausea and Compazine for breakthrough nausea. Continue home PPI. Unclear if she has been taking Creon consistently, will not prescribe now. Chronic medical conditions: ? Obesity: BMI 40 on admit. Encouraged lifestyle modifications. Complicates hospital course, care and prognosis. ? Depression/anxiety/insomnia: Continue home aripiprazole, Benadryl at night as needed, lorazepam 0.5 mg daily as needed. ? Neuropathy: Continue home gabapentin. DVT prophylaxis: Lovenox twice daily CODE STATUS: Full code, verified Expected disposition: Home, 2 to 3 days Total clinical time spent by myself addressing the patient's medical issues, reviewing all the data, and collaborating with patient's care team: 55 minutes. Charges/Coding Visit Charges Inpatient E&M: 91623 Init Hosp L2 12/03/23 1820 <Electronically signed by Jonh Geiger DO> Cosigner Signature (if applicable): CC: Dr. Jonh Geiger DO; Dr. Silverio Haley MD~ Signed [facility] Work Phone: 1(521) 408-305203-21-2024 Miscellaneous Notes* Telephone Encounter - Kristen Andrade LPN - 12/03/2023 3:18 PM EDT Spoke with patient and gave her providers message but she informs that she is already in the ER dueto the abdominal pain. * Telephone Encounter - Gretchen Newton APRN.CNS - 12/03/2023 2:59 PM EDT Review of chart shows left lower abdominal wall and stomach pain. Canceled several of her last appointments. She had a video visit in April 2023, last in internal medicine with Merced Hutchinson CNP forpancreatitis and renal calculus. On outside medication review it appears has been no recent refill of famotidine or pantoprazole. Norecent fill of Creon or promethazine. Recommend resuming those. Rxs sent today. Agree with ER for any severe or concerning symptoms. Reschedule with internal medicine and gastroenterology recommended. * Telephone Encounter - Lexy Desouza LPN - 12/03/2023 1:46 PM EDT Pt called to check status and wanted you to know she need to be to work at 5:30 PM and needs to know what your recommendations are. Please advise pt. Lexy Desouza LPN * Telephone Encounter - Ivanna Torre RN - 12/03/2023 11:03 AM EDT Patient calls to report that she missed her appointment with Johnathon SOTELO today because of transportation. She is calling to speak directly to Merced Hutchinson to ask what she should do about this severe abdominal pain. Patient reports that it is a constant pain affecting her ability to eat and drink. Continues to cause nausea and vomiting. Notified Merced was out and per nurse triage guidelines patient should seek ER evaluation. Patient refusing as she has been to the ER multiple times and they do nothing for her. Offered appointment fortomorrow since on-going issue. Patient refused appointment d/t transportation. VV not offered as didn't feel appropriate for severe abdominal pain. Requested provider review today for recommendation. Patient asking if she could try something else besides Protonix. Notified would send to covering provider but might have to wait until Merced returnstomorrow. Patient verbalizes understanding. Please review and advise, Ivanna Torre RN [facility] Miscellaneous Notes* Telephone Encounter - Joana Maldonado RN - 10/25/2023 2:46 PM EST Patient calling with request for pain medication to be called in . Patient denies any new or worsening symptoms of which a provider is not aware: No. Offered to triage patient and possibly schedule avirtual appointment and she declined. Informed her she can do a virtual appointment per [facility]. Patient agrees. documented [facility]Kn[facility]24 Discharge summary Author Fernando Cassidy [facility] October 24, 2023 9:34pm Note Date/Time October 24, 2023 8:48pm [facility] Medical Records Department [address] [place] [address] Emergency Department Summary 10/24/23 MR#: [id number] Acct: [id number] Name: SALLY VARGAS Rep #:[id number] : 1980 43 From: Fernando Cassidy MD PCP: Dr. Silverio Haley MD Status:RE G ER Location: ED HPI History of Present Illness Chief Complaint: Lower Extremity Injury Informant: patient Narrative Narrative: Patient presents with right knee pain. She was bending down at work. While bent down she slipped and her knee hit intoa metal pole that is part of the equipment. She has pain in the front of the knee. It spreads above the elbow. She has a history of arthritis in her knees but no prior surgeries. She never hit her head. She is not on blood thinners. [facility] Medical History Bipolar disorder Chronic pain History of renal calculi History of uterine cancer (2006) Hyperlipidemia Incomplete right bundle branch block Lung nodule Migraine Obesity Ovarian cyst Pancreatitis Right tubo-ovarian mass Ureteral stone with hydronephrosis Home Medications prazosin 1 mg capsule 1 mg PO QHS 03/26/20 [History Last Taken Unknown] gabapentin 400 mg capsule 800 mg PO TID 10/03/20 [History Last Taken Unknown] hydroxyzine HCl 50 mg tablet 50 mg PO QHS 10/03/20 [History Last Taken Unknown] omeprazole magnesium 20 mg tablet,delayed release 20 mg PO DAILY 10/03/20 [History Last Taken Unknown] promethazine 25 mg tablet 25 mg PO TID PRN nausea and vomiting #14 tabs 06/14/21[Rx Last Taken Unknown] ondansetron 4 mg disintegrating tablet 4 mg PO Q8H PRN nausea and vomiting #10 tabs 04/10/22 [Rx Last Taken Unknown] quetiapine 50 mg tablet 50 mg PO QHS 09/07/22 [History Last Taken Unknown] lorazepam 1 mg tablet (Ativan) 1 mg PO DAILY 02/10/23 [History Last Taken Unknown] hydrocodone-acetaminophen 5-325mg 5mg-325mg 1 tab PO Q6H PRN PRN Pain 3 days #10TABLETS 04/01/23 [Rx Last Taken Unknown] ondansetron 4 mg disintegrating tablet 4 mg PO Q8H PRN PRN Nausea #10 tabs 04/01/23 [Rx Last Taken Unknown] clindamycin HCl 150 mg capsule 300 mg (2 x 150 mg) PO 4X/DAY 10 days #80 CAPSULES 06/06/23 [Rx Last Taken Unknown] clindamycin HCl 150 mg capsule (Cleocin HCl) 300 mg (2 x 150 mg) PO Q8H 10 days #60 caps 06/06/23 [Rx Last Taken Unknown] Allergy/AdvReac Type Severity Reaction Status Date / Time Iodinated Contrast Media [CT] Allergy Anaphylaxis Verified 10/24/23 20:03 ketorolac tromethamine Allergy Rash Verified 10/24/23 20:03 [From Toradol] metronidazole [From Flagyl] Allergy Hives Verified 10/24/23 20:03 Penicillins Allergy Hives Verified 10/24/23 20:03 dicyclomine [From Bentyl] AdvReac Mild Hives Verified 10/24/23 20:03 aspirin AdvReac Upset Verified 10/24/23 20:03 Stomach Family History Aunt Breast cancer Grandfather CAD (coronary artery disease) Father Heart disease, Onset Age: 73 Triple bypass Mother Heart disease, Onset Age: 62 Other Diabetes Surgical History H/O ovarian cystectomy (09/2019) History of bilateral oophorectomy History of hysterectomy History of tubal ligation Social History household members: none Smoking Status: Current every day smoker tobacco type: cigarettes Tobacco: How many years used: 15 substance use type: does not use ROS ROS ED Constitutional Constitutional ED: Denies chills or fever(s) Respiratory/Chest Respiratory/Chest: Denies cough or dyspnea Gastrointestinal Gastrointestinal: Denies nausea or vomiting Musculoskeletal Musculoskeletal: Reports arthralgias; Denies back pain, myalgias or neck pain Integumentary Denies abscess, Abrasions or rash Neurologic Neurologic: Reports other Details: Patient states that the pain spreads up and down but it is not actual paresthesias. There is no numbness. ; Denies paresthesias or weakness Hematologic/Lymphatic Hematologic/Lymphatic: Denies easy bleeding or easy bruising EXAM Physical Exam Narrative Exam Narrative: Patient is awake and alert. She seems very anxious about this. But in no acutedistress. HEENT shows no trauma. Cardiorespiratory shows easy unlabored breathing. She does intermittently hyperventilate a bit. But her saturations are normal and her lungs are clear. Abdomen is benign. Extremities were fully exposed. There is no visible contusion that is developedat this time. There is no abrasion. No erythema. No effusion. There is anterior patellar tenderness. She was concerned because her knee swelled up. But it is the same as the other side. I do not see any local swelling yet although she may have bruising and swelling develop. Const Vital Signs: 10/24/23 20:01 Temperature 97 F L Temperature Source Temporal Pulse Rate 117 H Respiratory Rate 25 H Blood Pressure 139/85 H Blood Pressure Mean 103 Pulse Ox 98 Oxygen Delivery Method Room Air MDM MDM MDM Narrative Medical decision making narrative: My independent interpretation of the patient's 4 view x-ray of her right knee done for trauma shows no sign of acute fracture or dislocation. Final reading is normal x-ray examination of the knee. Patient did request some Tylenol which we gave here. I think Tylenol should be appropriate. She has GI upset with aspirin. She has had a rash with ketorolac. I do not think her injury requires narcotics. I would also be concerned if sheis on gabapentin and benzodiazepines chronically and this combination could leadto respiratory depression. I also encouraged ice and rest. Radiography Diagnostic Testing: Clinical Impression(s) from Imaging Studies Knee X-Ray 10/24/23 21:00 IMPRESSION: Normal x-ray examination of the knee. Electronically Signed: Byron Patricio MD at 21:26 EST , Discharge Plan Triage Chief Complaint: Lower Extremity Injury ED Provider: Fernando Cassidy Dx/Rx/DC Orders Clinical Impression: Contusion of right knee Instructions: ED Contusion, Lower Extremity Prescriptions: No Action prazosin 1 MG capsule 1 mg PO QHS gabapentin 400 MG capsule 800 mg PO TID hydroxyzine HCl 50 MG tablet 50 mg PO QHS omeprazole magnesium 20 MG tablet,delayed release (DR/EC) 20 mg PO DAILY promethazine 25 mg tablet 25 mg PO TID PRN (Reason: nausea and vomiting) Qty: 14 0RF ondansetron 4 mg tablet,disintegrating 4 mg PO Q8H PRN (Reason: nausea and vomiting) Qty: 10 0RF quetiapine 50 mg tablet 50 mg PO QHS Patient Comments: TAKE ONE TO TWO TABLETS BY MOUTH AT BEDTIME lorazepam [Ativan] 1 mg Tablet 1 mg PO DAILY hydrocodone-acetaminophen 5-325 mg tablet 1 tab PO Q6H PRN PRN (Reason: Pain) 3 Days Qty: 10 0RF ondansetron 4 mg tablet,disintegrating 4 mg PO Q8H PRN PRN (Reason: Nausea) Qty: 10 0RF clindamycin HCl 150 mg capsule 300 mg PO 4X/DAY 10 Days Qty: 80 0RF clindamycin HCl [Cleocin HCl] 150 mg capsule 300 mg PO Q8H 10 Days Qty: 60 0RF Stand Alone Forms: ED Work / School Excuse Primary Care Provider: Silverio Haley Referrals: Silverio Haley MD [Primary Care Provider] - 1 Week if not improving Activity Restrictions/Additional Instructions: Use Tylenol, ice, rest for discomfort. You can use Aleve or Motrin if you can tolerate them. Disposition Disposition: Home, Self Care What to do if you have Problems For any increased pain, shortness of breath, bleeding, nausea or vomiting, chestpain, or any unexpected problems, contact your Primary Care Provider. Call [facility] ([phone]) or report to the closest Emergency Room. Call 911 if necessary. 10/24/232133 <Electronically signed by Fernando Cassidy MD> Cosigner Signature (if applicable): CC: Dr. Silverio Haley MD ~ Signed [facility] Work Phone: [phone]) 537-425802-09-2024 Miscellaneous Notes* Telephone Encounter - Merced Hutchinson APRN.CNP - 10/23/2023 12:21 PM EST Noted, agree. * Telephone Encounter - Paradise Haley RN - 10/23/2023 11:30 AM EST Patient calls and is requesting virtual appointment with provider. Patient states that she has beenhaving nausea and vomiting a lot past few days. Patient reports that she cannot keep anything down.Advised patient that there are no appointment available and that she should go to ER to be evaluated if she continues to have issues with vomiting. Patient voiced understanding. Paradise Haley, RN [facility] History of Present illness Narrative* Mini Bunch, RT(R) - 10/09/2023 4:50 PM EST Radiology Service Progress Note PATIENT NAME: Sally Vargas DATE OF SERVICE: October 09, 2023 TIME: 5:05 PM PATIENT IDENTITY VERIFICATION COMPLETED USING TWO (2) IDENTIFIERS: Name and Date of confirmedby patient verbally. FALL SCREENING: Has the patient had 2 falls in the last year or 1 fall with injury or currently using an Ambulatory Assistive Device (Walker, Cane, Wheelchair, Crutches, etc.)? No PATIENT GENDER DATA: Female. status: : No status: NO. 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 FALL SCREENING: Has the patient had 2 falls in the last year or 1 fall with injury or currently using an Ambulatory Assistive Device (Walker, Cane, Wheelchair, Crutches, etc.)? No PATIENT GENDER DATA: Female. status: : No status: NO. PATIENT RELEVANT IMPLANT DATA REVIEWED: Not Applicable RADIOLOGY DEPARTMENT: General X-ray: Exam(s) Completed: Chest X-Ray PERIPHERAL IV DATA: Not applicable SIGNED BY: RT Abel(R) September 10, 2023 5:42 PM documented [facility]Kn[facility]12-05-2023 Miscellaneous Notes* Telephone Encounter - Milly Henderson APRN.CNP - 08/18/2023 3:37 PM EST Patient identified by name and date of . Patient advised of xray result (no fracture). Advised to take tylenol and rest, ice, elevate hand. Go to ER if pain worsens. Milly Henderson APRN.MANUELITO documented in this [facility]Kn[facility]12-[facility]23 History of Present illness Narrative* Milly Henderson APRN.CNP - 08/18/2023 3:09 PM EST Images from the original note were not included. Subjective Hand Injury Pertinent negatives include no chills, fever or rash. Sally Vargas is a 42 year old female who presents with left hand injury. 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 Her thumb has been hurting since. She has tried putting ice on it and taking tylenol. She rates her pain 10/10. Review of Systems Constitutional: Negative for chills and fever. Musculoskeletal: Positive for falls and joint pain. Skin: Negative for itching and rash. BP 142/96 Pulse 80 Temp 36.7 C (98.1 F) Resp 16 Wt 94.3 kg (208 lb) LMP 08/10/2006 [id number]% BMI 38.77 kg/m PAST MEDICAL HISTORY Diagnosis Date Allergic rhinitis, cause unspecified 05/17/2008 Spring and summer Benign liver cyst 05/24/2010 CT scan at [facility] 11/2009 and 04/2010 showe 4 mm increase in size. No pain. No elevated LFTs on 03/11/2010. Calculus of kidney 05/17/[address] Nicolas: Hospitalized age 20, and again later -- no procedures so far ([facility], [address] [facility]) Cancer (HCC) COVID-19 virus infection 10/07/202109/2021 Diverticulosis Dysmenorrhea Hemorrhoids History of blood transfusion Impaired fasting glucose 05/17/2008 Sugar 104 fasting, 04/21 Marijuana use 07/10/2020 ER visit 07/06/2020, [place] MIGRAINE 05/17/2008 Has used imitrex with good response; Keeps Vicodin on hand when needed; Ovarian cyst 07/15/2012 Pancreatitis Smoker 05/17/2008 Started age 26, 1/2 a PPD 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, mild esophagitis, 2 cm hiatal hernia EGD W/O [facility] SPEC VARICIES INJ 05/28/2020 LIG/TRNSXJ FLP TUBE ABDL/VAG APPR UNI/BI OOPHORECTOMY PARTIAL/TOTAL UNI/BI 2009 Oophorectomy right, still has left OOPHORECTOMY PARTIAL/TOTAL UNI/BI 01/2015 left removed PAST SURGICAL HISTORY OF uterine ablation PAST SURGICAL HISTORY OF cyst removal TOTAL ABDOMINAL HYSTERECT W/WO RMVL TUBE OVARY 08/31/2006 Hysterectomy, MICHELINE ALLERGIES Penicillins, Cephalexin, Chlorhexidine, Toradol [Ketorolac], Tramadol, Asa [Salicylates],Contrast Dye [Iodine], Ibuprofen, and Prednisone MEDICATIONS benzonatate (TESSALON PERLE) 100 mg capsule Take 2 capsules by mouth three times a day as needed for up to 10 days. LIDOCAINE VISCOUS 2 % solution Take 15 mL by mouth every 3 hours as needed for pain. prochlorperazine (COMPAZINE) 10 mg tablet Take 1 tablet by mouth three times daily as needed for nausea/vomiting. [id number]-wcidoyg (CREON 3) 3,000-9,500- 15,000 unit delayed release capsule Take 2 capsules by mouth three times daily with meals. pantoprazole DR (PROTONIX) 40 mg tablet Take 1 tablet by mouth daily before breakfast. Take on empty stomach, 1/2 hr before meal. famotidine (PEPCID) 40 mg tablet Take 1 tablet by mouth once daily. atorvastatin (LIPITOR) 20 mg tablet Take 1 tablet by mouth daily at bedtime. For cholesterol. Cholecalciferol, Vitamin D3, 125 mcg (5,000 unit) cap Take 1 capsule by mouth once daily. montelukast (SINGULAIR) 10 mg tablet Take 1 tablet by mouth daily at bedtime. albuterol HFA (VENTOLIN HFA) 90 mcg/actuation inhaler Inhale 2 Puffs as instructed every 4 hours asneeded for wheezing/shortness of breath. cyanocobalamin (VITAMIN B-12) 1,000 mcg tab Take 1 tablet by mouth once daily. QUEtiapine (SEROQUEL) 50 mg tablet Take 50 mg by mouth daily at bedtime. pantoprazole DR (PROTONIX) 40 mg tablet Take 1 tablet by mouth once daily. Take on empty stomach, 1/2 hr before meal. diphenhydrAMINE (BENADRYL) 25 mg capsule Take 50 mg by mouth at bedtime as needed. acetaminophen (TYLENOL EXTRA STRENGTH) 500 mg tablet Take 1 tablet by mouth every 6 hours as neededfor pain. gabapentin (NEURONTIN) 800 mg tablet TAKE 1 TABLET BY MOUTH THREE TIMES A DAY FAMILY HISTORY Problem Relation Age of Onset Thyroid Mother unsure of details Arthritis Mother fibromyalgia Blood Disease Mother blood clots, unsure of details (aorta?) No Known Problems Father No Known Problems Sister No Known Problems Sister No Known Problems Brother Diabetes Maternal Grandmother Diabetes Maternal Grandfather Lipids Maternal Grandfather Stroke Maternal Grandfather Coronary Artery Disease Maternal Grandfather Cataract Maternal Grandfather Pancreatic Cancer Maternal Grandfather Diabetes Paternal Grandmother Diabetes Paternal Grandfather Coronary Artery Disease Paternal Grandfather No Known Problems Son No Known Problems Son Breast Cancer Maternal Aunt Lipids Maternal Uncle Coronary Artery Disease Maternal Uncle other (ovarian ca) Other maternal cousin Colon Cancer No Family History Social History Tobacco Use Smoking status: Every Day Packs/day: 0.50 Years: 3.00 Additional pack years: 0.00 Total pack years: 1.50 Types: Cigarettes Last attempt to quit: 01/12/2017 Years since quittin.6 Smokeless tobacco: Never Tobacco comments: Approx. 3 cigarettes daily-1 pack every week Vaping Use Vaping Use: Never used Substance Use Topics Alcohol use: Yes Comment: Occasional Drug use: Never Objective Physical Exam Vitals and nursing note reviewed. Constitutional: General: She is not in acute distress. Appearance: Normal appearance. Musculoskeletal: General: Swelling, tenderness and signs of injury present. Left hand: Swelling, tenderness and bony tenderness present. No deformity. Decreased range of motion. Normal capillary refill. Normal pulse. Hands: Skin: General: Skin is warm and dry. Findings: Bruising present. No erythema or rash. Neurological: Mental Status: She is alert. ASSESSMENT/PLAN: 1. Hand injury, right, initial encounter - ICD9: 959.4, ICD10: S69.91XA (primary diagnosis) - XR HAND GENERAL 3V PA/LAT/OBL RIGHT 2. Contusion of right thumb without damage to nail, initial encounter - ICD9: 923.3, ICD10: S60.011A - ACETAMINOPHEN 500 MG TABLET - patient tearful after returning from xray I don't have an hour to wait around (for radiologist to read xray). - offered wrist/thumb splint. Patient states this hurts so much more (with the splint on). So I removed the splint. I offered her an CHARLY wrap - she refused this because she tried this at home yesterday and it made her pain worse. - Rx for extra strength tylenol sent to her pharmacy. She left. 5 minutes later the radiologist reading was received and it is: FINDINGS: No acute fractures or subluxations are noted. The joint spaces are well preserved. The mineralization of the bones is normal. There is no significant soft tissue swelling. IMPRESSION: Unremarkable right hand x-ray. Physical Therapy Nurse: HERMINIO Transcribe Date/Time: Aug 18 2023 2:52P Dictated by : KORI BLANKENSHIP MD This examination was interpreted and the report reviewed and electronically signed by: KORI BLANKENSHIP MD on Aug 18 2023 2:58PM EST Patient is advised of this via phone call. She is advised to take tylenol, rest hand, apply ice to painful area 2-3 times daily for 15 minutes per application, keep hand elevated. Go to ER if her pain worsens. Milly Henderson APRN.CLASSROOM TEACHER documented in this encounterKn[facility]12-05-2023 Instructions* Patient Instructions* iMlly Henderson APRN.CNP - 08/18/2023 3:04 PM EST ASSESSMENT/PLAN: 1. Hand injury, right, initial encounter - ICD9: 959.4, ICD10: S69.91XA (primary diagnosis) - XR HAND GENERAL 3V PA/LAT/OBL RIGHT 2. Contusion of right thumb without damage to nail, initial encounter - ICD9: 923.3, ICD10: S60.011A - ACETAMINOPHEN 500 MG TABLET - patient tearful after returning from xray I don't have an hour to wait around (for radiologist to read xray). - offered wrist/thumb splint. Patient states this hurts so much more (with the splint on). So I removed the splint. I offered her an CHARLY wrap - she refused this because she tried this at home yesterday and it made her pain worse. - Rx for extra strength tylenol sent to her pharmacy. She left. 5 minutes later the radiologist reading was received and it is: FINDINGS: No acute fractures or subluxations are noted. The joint spaces are well preserved. The mineralization of the bones is normal. There is no significant soft tissue swelling. IMPRESSION: Unremarkable right hand x-ray. Physical Therapy Nurse: HERMINIO Transcribe Date/Time: Aug 18 2023 2:52P Dictated by : KORI BLANKENSHIP MD This examination was interpreted and the report reviewed and electronically signed by: KORI BLANKENSHIP MD on Aug 18 2023 2:58PM EST Patient is advised of this via phone call. She is advised to take tylenol, rest hand, apply ice to painful area 2-3 times daily for 15 minutes per application, keep hand elevated. Go to ER if her pain worsens. Milly Henderson APRN.MANUELITO documented in this encounterKn[facility]12-05-2023 History of Present illness Narrative* Kylee Davenport, RT(R) - 08/18/2023 2:20 PM EST Radiology Service Progress Note PATIENT NAME: Sally Vargas DATE OF SERVICE: August 18, 2023 TIME: 2:23 PM PATIENT IDENTITY VERIFICATION COMPLETED USING TWO (2) IDENTIFIERS: Name and Date of confirmedby patient verbally. FALL SCREENING: Has the patient had 2 falls in the last year or 1 fall with injury or currently using an Ambulatory Assistive Device (Walker, Cane, Wheelchair, Crutches, etc.)? No PATIENT GENDER DATA: Female. status: : No status: NO. PATIENT RELEVANT IMPLANT DATA REVIEWED: Yes RADIOLOGY DEPARTMENT: General X-ray: Exam(s) Completed: Upper Extremity X- Ray(s): Hand, right PERIPHERAL IV DATA: Not applicable SIGNED BY: RT Olivier(R) August 18, 2023 2:23 PM documented in this encounterKnox [facility]11-29-2023 History of Present illness Narrative* Milly Henderson APRN.CLASSROOM TEACHER - 08/12/2023 5:05 PM EST Subjective Cough Associated symptoms include headaches, sore throat and myalgias. Pertinent negatives include no chest pain, no ear pain and no shortness of breath. Sally Vargas is a 42 year old female who presents with a cough, body aches, head aches for thepast 6 days. Has had a fever for a couple days and feeling tired. She was exposed to COVID- her friend and her friend's daughter tested positive. She has been taking tylenol. Review of Systems Constitutional: Positive for fever and malaise/fatigue. HENT: Positive for congestion and sore throat. Negative for ear pain. Respiratory: Positive for cough. Negative for shortness of breath. Cardiovascular: Negative for chest pain. Gastrointestinal: Negative for diarrhea, nausea and vomiting. Musculoskeletal: Positive for myalgias. Neurological: Positive for headaches. BP 110/78 Pulse 80 Temp 36.6 C (97.8 F) Resp 21 Wt 94.6 kg (208 lb 9.6 oz) LMP 08/10/2006 SpO2 98% BMI 38.88 kg/m PAST MEDICAL HISTORY Diagnosis Date Allergic rhinitis, cause unspecified 05/17/2008 Spring and summer Benign liver cyst 05/24/2010 CT scan at [facility] 11/2009 and 04/2010 showe 4 mm increase in size. No pain. No elevated LFTs on 03/11/2010. Calculus of kidney 05/17/[address] Nicolas: Hospitalized age 20, and again later -- no procedures so far ([facility], [address] [facility]) Cancer (HCC) COVID-19 virus infection 10/07/202109/2021 Diverticulosis Dysmenorrhea Hemorrhoids History of blood transfusion Impaired fasting glucose 05/17/2008 Sugar 104 fasting, 04/21 Marijuana use 07/10/2020 ER visit 07/06/2020, [place] MIGRAINE 05/17/2008 Has used imitrex with good response; Keeps Vicodin on hand when needed; Ovarian cyst 07/15/2012 Pancreatitis Smoker 05/17/2008 Started age 26, 1/2 a PPD 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, mild esophagitis, 2 cm hiatal hernia EGD W/O [facility] SPEC VARICIES INJ 05/28/2020 LIG/TRNSXJ FLP TUBE ABDL/VAG APPR UNI/BI OOPHORECTOMY PARTIAL/TOTAL /BI 2009 Oophorectomy right, still has left OOPHORECTOMY PARTIAL/TOTAL UNI/BI 01/2015 left removed PAST SURGICAL HISTORY OF uterine ablation PAST SURGICAL HISTORY OF cyst removal TOTAL ABDOMINAL HYSTERECT W/WO RMVL TUBE OVARY 08/31/2006 Hysterectomy, MICHELINE ALLERGIES Penicillins, Cephalexin, Chlorhexidine, Toradol [Ketorolac], Tramadol, Asa [Salicylates],Contrast Dye [Iodine], Ibuprofen, and Prednisone MEDICATIONS prochlorperazine (COMPAZINE) 10 mg tablet Take 1 tablet by mouth three times daily as needed for nausea/vomiting. [id number]-xcgxtsro-ryjiodm (CREON 3) 3,000-9,500- 15,000 unit delayed release capsule Take 2 capsules by mouth three times daily with meals. pantoprazole DR (PROTONIX) 40 mg tablet Take 1 tablet by mouth daily before breakfast. Take on empty stomach, 1/2 hr before meal. famotidine (PEPCID) 40 mg tablet Take 1 tablet by mouth once daily. atorvastatin (LIPITOR) 20 mg tablet Take 1 tablet by mouth daily at bedtime. For cholesterol. Cholecalciferol, Vitamin D3, 125 mcg (5,000 unit) cap Take 1 capsule by mouth once daily. montelukast (SINGULAIR) 10 mg tablet Take 1 tablet by mouth daily at bedtime. gabapentin (NEURONTIN) 800 mg tablet TAKE 1 TABLET BY MOUTH THREE TIMES A DAY albuterol HFA (VENTOLIN HFA) 90 mcg/actuation inhaler Inhale 2 Puffs as instructed every 4 hours asneeded for wheezing/shortness of breath. cyanocobalamin (VITAMIN B-12) 1,000 mcg tab Take 1 tablet by mouth once daily. QUEtiapine (SEROQUEL) 50 mg tablet Take 50 mg by mouth daily at bedtime. pantoprazole DR (PROTONIX) 40 mg tablet Take 1 tablet by mouth once daily. Take on empty stomach, 1/2 hr before meal. diphenhydrAMINE (BENADRYL) 25 mg capsule Take 50 mg by mouth at bedtime as needed. acetaminophen (TYLENOL EXTRA STRENGTH) 500 mg tablet Take 2 tablets by mouth every 8 hours as needed for pain or fever (specify temp.). benzonatate (TESSALON PERLE) 100 mg capsule Take 2 capsules by mouth three times a day as needed for up to 10 days. LIDOCAINE VISCOUS 2 % solution Take 15 mL by mouth every 3 hours as needed for pain. (Patient not taking: Reported on 08/12/2023) FAMILY HISTORY Problem Relation Age of Onset Thyroid Mother unsure of details Arthritis Mother fibromyalgia Blood Disease Mother blood clots, unsure of details (aorta?) No Known Problems Father No Known Problems Sister No Known Problems Sister No Known Problems Brother Diabetes Maternal Grandmother Diabetes Maternal Grandfather Lipids Maternal Grandfather Stroke Maternal Grandfather Coronary Artery Disease Maternal Grandfather Cataract Maternal Grandfather Pancreatic Cancer Maternal Grandfather Diabetes Paternal Grandmother Diabetes Paternal Grandfather Coronary Artery Disease Paternal Grandfather No Known Problems Son No Known Problems Son Breast Cancer Maternal Aunt Lipids Maternal Uncle Coronary Artery Disease Maternal Uncle other (ovarian ca) Other maternal cousin Colon Cancer No Family History Social History Tobacco Use Smoking status: Every Day Packs/day: 0.50 Years: 3.00 Additional pack years: 0.00 Total pack years: 1.50 Types: Cigarettes Last attempt to quit: 01/12/2017 Years since quittin.5 Smokeless tobacco: Never Tobacco comments: Approx. 3 cigarettes daily-1 pack every week Vaping Use Vaping Use: Never used Substance Use Topics Alcohol use: Yes Comment: Occasional Drug use: Never Objective Physical Exam Vitals and nursing note reviewed. Constitutional: General: She is not in acute distress. Appearance: Normal appearance. HENT: Right Ear: Tympanic membrane, ear canal and external ear normal. Left Ear: Tympanic membrane, ear canal and external ear normal. Mouth/Throat: Mouth: Mucous membranes are moist. Pharynx: Oropharynx is clear. No oropharyngeal exudate or posterior oropharyngeal erythema. Cardiovascular: Rate and Rhythm: Normal rate and regular rhythm. Heart sounds: Normal heart sounds. Pulmonary: Effort: Pulmonary effort is normal. No respiratory distress. Breath sounds: Normal breath sounds. No wheezing or rales. Skin: General: Skin is warm and dry. Findings: No erythema or rash. Neurological: Mental Status: She is alert. ASSESSMENT/PLAN: 1. Viral URI with cough - ICD9: 465.9, ICD10: J06.9 - Discussed viral etiology and rationale for treatment. - Symptomatic treatment with prn analgesia - Supportive care with fluids and rest - ACETAMINOPHEN 500 MG TABLET - BENZONATATE 100 MG CAPSULE - COVID & INFLUENZA A/B NAAT, ROUTINE-symptoms x 6 days, outside of treatment window for antiviral medication. - Follow-up with your PCP in 3-5 days if symptoms have not improved or sooner if symptoms worsen - Discussed red flags and need for immediate medical evaluation if any occur. - Discussed supportive care treatment with fluids, rest and analgesia. - Discussed expected course of illness Milly Henderson APRN.CNP documented [facility] Instructions* Patient Instructions* Milly Henderson APRN.CNP - 08/12/2023 5:05 PM EST ASSESSMENT/PLAN: 1. Viral URI with cough - ICD9: 465.9, ICD10: J06.9 - Discussed viral etiology and rationale for treatment. - Symptomatic treatment with prn analgesia - Supportive care with fluids and rest - ACETAMINOPHEN 500 MG TABLET - BENZONATATE 100 MG CAPSULE - COVID & INFLUENZA A/B NAAT, ROUTINE - Follow-up with your PCP in 3-5 days if symptoms have not improved or sooner if symptoms worsen - Discussed red flags and need for immediate medical evaluation if any occur. - Discussed supportive care treatment with fluids, rest and analgesia. - Discussed expected course of illness Milly Henderson APRN.[employer] Treatment for Viral Upper Respiratory Tract Infections Your body will kill off the virus by itself. Additionally, you can prime your body's immune system.This may help you get better more quickly. Drink lots of fluids Make sure you are eating well Get plenty of rest We do not have any medications that kill off these viruses. Antibiotics are used to treat bacterialinfections; however, they are not active against viral infections. There are some things that mighthelp you feel better, though. Vaporizers, humidifiers, hot showers, and hot fluids help open respiratory and sinus passages [place] Nas[place] may offer relief of nasal and head congestion Trae's Vapor Rub may relieve congestion Tylenol and Advil help control fevers and headaches Salt water gargles help relieve sore throats Chloraceptic spray or throat lozenges may also help relieve sore throat symptoms Occasionally, viral infections turn into something more serious. You should see your doctor or return to the Urgent Care if: You have fevers for longer than five days You have fevers above 102 degrees You are still sick after 10 days You have shortness of breath or wheezing After several days you are getting worse rather than better documented in this encounterKn[facility]09[facility]23 Discharge summary Author Grzegorz Roper [facility] June 06, 2023 5:17pm Note Date/Time June 06, 2023 5:05pm [facility] Medical Records Department [address] [place] [address] Emergency Department Summary 06/06/23 MR#: [id number] Acct: [id number] Name: SALLY VARGAS Rep #:[id number] : 1980 42 From: Grzegorz Roper MD PCP: Dr. Silverio Haley MD Status:RE G ER Location: ED HPI History of Present Illness Chief Complaint: Dental Detail of Chief Complaint: Jaw dental pain. Informant: patient Onset/Context/Timing Onset: Weeks Context: Gradual Onset Timing: Continuous Current Severity: Moderate Maximum Severity: Moderate Associated Symptoms Assocated Symptom - Dental: Negative for fever, jaw swelling, face swelling, cold sensitivity or hot sensitivity Narrative Narrative: 42-year-old female with right lower jaw pain.. Believes that she has a cavity and dental infection. Patient is requesting pain medication says she has reflux and she cannot do a Motrin. She has been taking Tylenol. Prior similar symptoms: Yes Recent Illness/Hospitalization: No PFSH PFS Medical History Bipolar disorder Chronic pain History of renal calculi History of uterine cancer (2006) Hyperlipidemia Incomplete right bundle branch block Lung nodule Migraine Obesity Ovarian cyst Pancreatitis Right tubo-ovarian mass Ureteral stone with hydronephrosis Home Medications prazosin 1 mg capsule 1 mg PO QHS 03/26/20 [History Last Taken Unknown] gabapentin 400 mg capsule 800 mg PO TID 10/03/20 [History Last Taken Unknown] hydroxyzine HCl 50 mg tablet 50 mg PO QHS 10/03/20 [History Last Taken Unknown] omeprazole magnesium 20 mg tablet,delayed release 20 mg PO DAILY 10/03/20 [History Last Taken Unknown] promethazine 25 mg tablet 25 mg PO TID PRN nausea and vomiting #14 tabs 06/14/21[Rx Last Taken Unknown] ondansetron 4 mg disintegrating tablet 4 mg PO Q8H PRN nausea and vomiting #10 tabs 04/10/22 [Rx Last Taken Unknown] quetiapine 50 mg tablet 50 mg PO QHS 09/07/22 [History Last Taken Unknown] lorazepam 1 mg tablet (Ativan) 1 mg PO DAILY 02/10/23 [History Last Taken Unknown] hydrocodone-acetaminophen 5-325mg 5mg-325mg 1 tab PO Q6H PRN PRN Pain 3 days #10TABLETS 04/01/23 [Rx Last Taken Unknown] ondansetron 4 mg disintegrating tablet 4 mg PO Q8H PRN PRN Nausea #10 tabs 04/01/23 [Rx Last Taken Unknown] clindamycin HCl 150 mg capsule 300 mg (2 x 150 mg) PO 4X/DAY 10 days #80 CAPSULES 06/06/23 [Rx Last Taken Unknown] clindamycin HCl 150 mg capsule (Cleocin HCl) 300 mg (2 x 150 mg) PO Q8H 10 days #60 caps 06/06/23 [Rx Last Taken Unknown] Allergy/AdvReac Type Severity Reaction Status Date / Time Iodinated Contrast Media [CT] Allergy Anaphylaxis Verified 06/06/23 16:41 ketorolac tromethamine Allergy Rash Verified 06/06/23 16:41 [From Toradol] metronidazole [From Flagyl] Allergy Hives Verified 06/06/23 16:41 Penicillins Allergy Hives Verified 06/06/23 16:41 dicyclomine [From Bentyl] AdvReac Mild Hives Verified 06/06/23 16:41 aspirin AdvReac Upset Verified 06/06/23 16:41 Stomach Family History Aunt Breast cancer Grandfather CAD (coronary artery disease) Father Heart disease, Onset Age: 73 Triple bypass Mother Heart disease, Onset Age: 62 Other Diabetes Surgical History H/O ovarian cystectomy (09/2019) History of bilateral oophorectomy History of hysterectomy History of tubal ligation Social History household members: none Smoking Status: Current every day smoker tobacco type: cigarettes Tobacco: How many years used: 15 substance use type: does not use ROS ROS ED ROS Narrative Denies recent illness. Review of Systems ROS Unobtainable: Denies due to encephalopathy Constitutional Constitutional ED: Denies chills or fever(s) Eyes Eyes: Denies blurry vision ENT ENT ED: Denies ear pain Cardiovascular Cardiovascular: Denies chest pain Respiratory/Chest Respiratory/Chest: Denies cough or dyspnea Gastrointestinal Gastrointestinal: Denies abdominal pain Genitourinary Genitourinary ED: Denies dysuria or hematuria Musculoskeletal Musculoskeletal: Denies arthralgias Integumentary Denies abscess Neurologic Neurologic: Denies headache(s) Psychiatric Psychiatric: Denies anxiety or depression Endocrine Endocrinology: Denies cold intolerance Hematologic/Lymphatic Hematologic/Lymphatic: Denies easy bleeding, easy bruising or lymphadenopathy Allergic/Immunologic Allergic/Immunologic ED: Denies mouth swelling, tongue swelling or urticaria EXAM Physical Exam Narrative Exam Narrative: Appearing 42-year-old female no acute distress. Vital signs stable afebrile. Initial blood pressure elevated 185/58. Presentation. Is very few lower dentition the molar on the right is already done already in the gumline the gums swollen and tender. There is no obvious abscess. Posterior pharynx normal. Neck nontender. No lymphadenopathy. Lungsclear to auscultation bilaterally. Heart regular rhythm no murmur. Abdomen soft nontender. Moving all 4 extremities. Nontender no edema. Awake and alert. Const Vital Signs: 06/06/23 16:42 Temperature 98.2 F Temperature Source Temporal Pulse Rate 95 Respiratory Rate 16 Blood Pressure 185/158 H Blood Pressure Mean 167 Pulse Ox 98 Oxygen Delivery Method Room Air Positive well nourished and well developed; Negative for cachectic, contracturesor unkempt General Appearance ED: well developed and NAD; Negative for unkempt, cachectic, contractures or pallor Nutritional Appearance: Negative for cachectic HEENT Denies other Negative for trauma, tenderness or other Mouth ED: Yes oral and palatal mucosa abnormal Mouth: oral and palatal mucosa abnormal Teeth and Gingiva: abnormal tooth and associated gingiva Throat: posterior oropharynx normal Eyes PERRL and EOMs intact bilaterally General Eye ED: Negative for pale conjunctiva or scleral icterus Visual Acuity: Negative for other Neck no lymphadenopathy, supple and no JVD General: Negative for normal visual inspection, anterior neck swelling or tenderness Lymph Lymphatic: no lymphadenopathy noted and lymphadenopathy; Negative for other Chest Wall inspection of chest normal and palpation of chest normal Resp normal respiratory effort, no retractions and clear to auscultation bilaterally Cardio regular rate, regular rhythm, S1 normal heart sound, S2 normal heart sound and no murmurs Jugular Venous Distention: Negative for other Palpation: Negative for palpable S3 Rate: Negative for bradycardia GI normal to inspection, nondistended, normoactive bowel sounds, non-tender, non-distended and no masses Inspection: Negative for other Palpation: soft Back/Spine no CVA tenderness General Back: Negative for CVA tenderness Cervical Spine: Negative for other Extremity normal to inspection and no joint enlargement General Extremety ED: Negative for edema General Extremity: Negative for edema Neuro oriented x3 and CN's II-XII intact bilaterally Sensorium / Orientation: alert, oriented to person, oriented to place and oriented to time Motor Exam: strength 5/5 throughout Psych mental status grossly normal Appearance: Negative for unkempt Attitude: No agitated Mood & Affect: Negative for depressed, anxious or tearful Skin no rashes or lesions noted and no wounds General Skin Exam: Negative for pallor MDM MDM MDM Narrative Medical decision making narrative: 42-year-old female with right lower dental pain that is eroded to the gumline and has gingival inflammation. No obvious abscess. She will be started on clindamycin due to penicillin allergy. 300 mg 4 times a day for 10 days. Motrin and Tylenol for pain. Patient questioned me multiple times about writingher for narcotic pain medication I told her typically did not do that for dentalpain. She has history of chronic pain and bipolar. We also ran [facility] report and she has had recent narcotic prescriptions from other local emergency department about 3 weeks ago. History & Record Review Discussion w/independent historian: Patient Discharge Plan Triage Chief Complaint: Dental ED Provider: Grzegorz Roper Dx/Rx/DC Orders Clinical Impression: Pain, dental, Dental infection Instructions: ED Dental Pain Prescriptions: New clindamycin HCl 150 mg capsule 300 mg PO 4X/DAY 10 Days Qty: 80 0RF clindamycin HCl [Cleocin HCl] 150 mg capsule 300 mg PO Q8H 10 Days Qty: 60 0RF No Action prazosin 1 MG capsule 1 mg PO QHS gabapentin 400 MG capsule 800 mg PO TID hydroxyzine HCl 50 MG tablet 50 mg PO QHS omeprazole magnesium 20 MG tablet,delayed release (DR/EC) 20 mg PO DAILY promethazine 25 mg tablet 25 mg PO TID PRN (Reason: nausea and vomiting) Qty: 14 0RF ondansetron 4 mg tablet,disintegrating 4 mg PO Q8H PRN (Reason: nausea and vomiting) Qty: 10 0RF quetiapine 50 mg tablet 50 mg PO QHS Patient Comments: TAKE ONE TO TWO TABLETS BY MOUTH AT BEDTIME lorazepam [Ativan] 1 mg Tablet 1 mg PO DAILY hydrocodone-acetaminophen 5-325 mg tablet 1 tab PO Q6H PRN PRN (Reason: Pain) 3 Days Qty: 10 0RF ondansetron 4 mg tablet,disintegrating 4 mg PO Q8H PRN PRN (Reason: Nausea) Qty: 10 0RF Primary Care Provider: Silverio Haley Referrals: Silverio Haley MD [Primary Care Provider] - Activity Restrictions/Additional Instructions: Follow-up with with a dentist soon as possible order of the right lower tooth extracted. Motrin and Tylenol for pain. Clindamycin 4 times a day for the dental infection. Disposition Disposition: Home, Self Care What to do if you have Problems For any increased pain, shortness of breath, bleeding, nausea or vomiting, chestpain, or any unexpected problems, contact your Primary Care Provider. Call [facility] ([phone]) or report to the closest Emergency Room. Call 911 if necessary. 06/06/231716 <Electronically signed by Grzegorz Roper MD> Cosigner Signature (if applicable): CC: Dr. Silverio Haley MD ~ Signed [facility] Work Phone: [phone] 328-325809-11-2023 Telephone encounter Note* Telephone Encounter - Megan Ardon LPN - 05/25/2023 12:36 PM EDT Patient scheduled her [facility] visit that she missed. [id number] Miscellaneous Notes* Telephone Encounter - Megan Ardon LPN - 05/25/2023 12:36 PM EDT Patient scheduled her [facility] visit that she missed. documented in this encounterSMetroHealth [facility] [id number] Miscellaneous Notes* Telephone Encounter - Sallie Benitez LPN - 05/19/2023 11:57 AM EDT Patient scheduled for an ER follow up on 05/20/2023. States tooth infection has been addressed and has been referred to oral surgeon and ultrasound of abdomen was normal. * Telephone Encounter - Merced Hutchinson APRN.[facility] - 05/15/2023 4:55 PM EDT Noted that ER is not prescribing the percocet. She has an appointment with GI and also with pain management coming up. For her dental issues can she come in for an appointment (will need ER follow upany way) so that we can evaluate the severity, she may need referral to an oral surgeon. * Telephone Encounter - Paradise Haley RN - 05/15/2023 4:[address] Pena from [place] [facility] calls and states that patient is currently in ED with abdominal painagain. Dr. Pena is sending patient home. Patient has had numerous CT scan and other work ups. Dr. Pena states that nothing currently is wrong with patient. Dr. Pena states that he is not going to prescribe her any Percocet. Paradise Haley RN * Telephone Encounter - Renetta Hernández RN - 05/15/2023 1:43 PM EDT Patient calling with: Pt had VV with Merced Hutchinson CNP on 04/22. Calling to state she continues with right side pain, rates 9 out of 10, as discussed during VV. Denies fever. Pt did go to [facility] ER on 05/04 for evaluation and reports only blood work and urine testing was completed and she was prescribed a few percocet. Pt states the ER provider advised pt to return to ER on 05/05 for further evaluation and pt states she did not do this. Pt Kidney/Bladder US scheduled for 05/21. Pt asking for Merced to advise her at this time. This nurse reminded pt that for any severe pain as she is having, that ER is advised, however pt asking for Merced's advise. Pt reports she saw a dentist yesterday because she has bad teeth. Reports she has an abscessed back bottom right tooth that dentist advised pt to call PCP for treatment for. Pt states the dentist was rude to her and advised tooth extractions however pt states she has anxiety related to shots. Reports her back bottom right tooth is infected and gums are swollen and very painful in that area.Denies fever. Reports she has been taking ibuprofen but is not suppose to take d/t causes GI problems. Pt asking if Merced will call script to [facility] for antibiotics? Please call patient with reply. Thank you. documented in this encounterKn[facility]2023 Miscellaneous Notes* Telephone Encounter - Renetta Hernández RN - 05/15/2023 1:57 PM EDT Patient updated of message below. Transferred to programming internship to schedule with Urology. Pt has US scheduled for 05/21. Renetta Hernández RN * Telephone Encounter - Chery Solorzano - 05/13/2023 8:42 AM EDT 1st call attempt, left vm * Telephone Encounter - Merced Hutchinson APRN.CNP - 05/12/2023 4:16 PM EDT I believe it was an ultrasound of the bladder and kidneys but we decide on having her follow up with urology instead so that they could decide on further testing. I can place the order, please help her schedule. Thanks! * Telephone Encounter - Lara Mercado LPN - 05/12/2023 4:00 PM EDT Pt had a VV on 04/22/23 & states [employer] wanted to order an US but pt forgot about it. Pt states she wants to schedule it now. There is an US order in from 03/11/23, is this the correct order? Please advise. Lara Mercado LPN documented in this encounterKnox [facility] Hospital08-21-2023 Discharge summary Author Vikram Dominguez [facility] May 04, 2023 8:05pm Note Date/Time May 04, 2023 8: 04pm [facility] Medical Records Department [address] [place] [address] Emergency Department Summary 05/04/23 MR#: [id number] Acct: [id number] Name: SALLY VARGAS Rep #:[id number] : 1980 42 From: Vikram Dominguez DO PCP: Dr. Silverio Haley MD Status:DE P ER Location: ED HPI HPI - GI History of Present Illness Chief Complaint: Abd Pain Narrative Narrative: 42-year-old female presenting with abdominal pain. She states is on both sides of her upper abdomen and greater on the left at times. It is greater on the right at other times. She has a history of pancreatitis and kidney stones. Patient states she has not a fever and she has had nausea. She has IBS. She states he is having bowel movements. Denies urinary or vaginal complaints. No fevers or chills. [facility] Medical History Bipolar disorder Chronic pain History of renal calculi History of uterine cancer (2006) Hyperlipidemia Incomplete right bundle branch block Lung nodule Migraine Obesity Ovarian cyst Pancreatitis Right tubo-ovarian mass Ureteral stone with hydronephrosis Home Medications prazosin 1 mg capsule 1 mg PO QHS 03/26/20 [History Last Taken Unknown] gabapentin 400 mg capsule 800 mg PO TID 10/03/20 [History Last Taken Unknown] hydroxyzine HCl 50 mg tablet 50 mg PO QHS 10/03/20 [History Last Taken Unknown] omeprazole magnesium 20 mg tablet,delayed release 20 mg PO DAILY 10/03/20 [History Last Taken Unknown] promethazine 25 mg tablet 25 mg PO TID PRN nausea and vomiting #14 tabs 06/14/21[Rx Last Taken Unknown] ondansetron 4 mg disintegrating tablet 4 mg PO Q8H PRN nausea and vomiting #10 tabs 04/10/22 [Rx Last Taken Unknown] quetiapine 50 mg tablet 50 mg PO QHS 09/07/22 [History Last Taken Unknown] lorazepam 1 mg tablet (Ativan) 1 mg PO DAILY 02/10/23 [History Last Taken Unknown] hydrocodone-acetaminophen 5-325mg 5mg-325mg 1 tab PO Q6H PRN PRN Pain 3 days #10TABLETS 04/01/23 [Rx Last Taken Unknown] ondansetron 4 mg disintegrating tablet 4 mg PO Q8H PRN PRN Nausea #10 tabs 04/01/23 [Rx Last Taken Unknown] Allergy/AdvReac Type Severity Reaction Status Date / Time Iodinated Contrast Media [CT] Allergy Anaphylaxis Verified 05/04/23 17:02 ketorolac tromethamine Allergy Rash Verified 05/04/23 17:02 [From Toradol] metronidazole [From Flagyl] Allergy Hives Verified 05/04/23 17:02 Penicillins Allergy Hives Verified 05/04/23 17:02 dicyclomine [From Bentyl] AdvReac Mild Hives Verified 05/04/23 17:02 aspirin AdvReac Upset Verified 05/04/23 17:02 Stomach Family History Aunt Breast cancer Grandfather CAD (coronary artery disease) Father Heart disease, Onset Age: 73 Triple bypass Mother Heart disease, Onset Age: 62 Other Diabetes Surgical History H/O ovarian cystectomy (09/2019) History of bilateral oophorectomy History of hysterectomy History of tubal ligation Social History household members: none Smoking Status: Current every day smoker tobacco type: cigarettes Tobacco: How many years used: 15 substance use type: does not use ROS ROS ED Constitutional Constitutional ED: Denies chills, fever(s) or sweats Eyes Eyes: Denies blurry vision or change in vision ENT ENT ED: Denies ear pain or sore throat Cardiovascular Cardiovascular: Denies chest pain, palpitations or racing heartbeat Respiratory/Chest Respiratory/Chest: Denies cough, dyspnea or sputum Gastrointestinal Gastrointestinal: Reports abdominal pain and nausea; Denies constipation, diarrhea or vomiting Genitourinary Genitourinary ED: Denies dysuria, hematuria or urinary frequency Musculoskeletal Musculoskeletal: Denies arthralgias, myalgias or neck pain Integumentary Denies abscess, Abrasions or rash Neurologic Neurologic: Denies headache(s), paresthesias or weakness Psychiatric Psychiatric: Denies anxiety, depression, suicidal ideation or suicidal thoughts Endocrine Endocrinology: Denies polydipsia or polyuria EXAM Physical Exam Const Vital Signs: 05/04/23 17:02 Temperature 98 F Temperature Source Temporal Pulse Rate 98 Respiratory Rate 18 Blood Pressure 134/77 H Blood Pressure Mean 96 Pulse Ox 99 Oxygen Delivery Method Room Air Positive well nourished General Appearance ED: NAD HEENT Reports moist mucous membranes normocephalic and atraumatic Eyes PERRL and EOMs intact bilaterally Resp normal respiratory effort Cardio regular rate and regular rhythm GI GI Narrative: Benign abdomen Back/Spine no CVA tenderness Neuro CN's II-XII intact bilaterally, moves all extremities and no sensory deficits noted Motor Exam: strength 5/5 throughout Psych mental status grossly normal MDM MDM MDM Narrative Medical decision making narrative: Is that thePatient seen and evaluated for abdominal pain. Abdominal exam is benign. She has a care plan and we will check some basic lab work just to make sure this was not abnormal. CBC and CMP were obtained to assess liver function,renal function, electrolytes. Lipase was obtained to assess for pancreatitis asshe does have a history. Urinalysis to assess for UTI or occult blood. Since the patient does have a care plan we did discuss giving her Zofran and Tylenol. I counseled her that if this does not help to tell the nurse that we will try something different. We reviewed her allergy list. Her blood work all came back normal. It was reported me by nursing staff that the patient had eloped. Impression: 1. Abdominal pain 2. Nausea/ Lab Data Attestation: I reviewed the patient's lab results. Labs: Laboratory Results - last 24 hr 05/04/23 17:33 WBC 7.8 RBC 4.35 Hgb 13.2 Hct 40.4 MCV 92.9 MCH 30.3 MCHC 32.7 RDW Std Deviation 44.4 H RDW Coeff of Shun 13.1 Plt Count 248 MPV 11.2 Immature Gran % (Auto) 0.600 Neut % (Auto) 46.3 L Lymph % (Auto) 43.0 H [place] % (Auto) 6.4 Eos % (Auto) 2.9 Baso % (Auto) 0.8 Absolute Neuts (auto) 3.6 Absolute Lymphs (auto) 3.36 Nucleated RBC % 0 Sodium 139 Potassium 3.4 L Chloride 108 H Carbon Dioxide 26.0 Anion Gap 5 BUN 10 Creatinine 1.19 H Estim Creat Clear Calc 46.00 Est GFR (MDRD) Af Amer 64 Est GFR (MDRD) Non-Af 53 L BUN/Creatinine Ratio 8.4 L Glucose 110 H Calcium 8.6 Total Bilirubin 0.40 AST 13 L ALT 25 Alkaline Phosphatase 122 H Total Protein 7.8 Albumin 4.0 Globulin 3.8 Albumin/Globulin Ratio 1.1 Lipase 35 Serum , Qual NEGATIVE Urine Color Yellow Urine Clarity Sl. Cloudy Urine pH 6.0 Ur Specific [place] 1.010 Urine Protein Negative Urine Glucose (UA) Normal Urine Ketones Negative Urine Occult Blood Negative Urine Nitrite Negative Urine Bilirubin Negative Urine Urobilinogen Normal Ur Leukocyte Esterase 25 H Urine RBC 0 SEEN Urine WBC 0 SEEN Ur Squamous Epith Cells 10-25 SEEN Urine Bacteria 1+ Urine Mucus 0 SEEN Discharge Plan Triage Chief Complaint: Abd Pain ED Provider: Vikram Dominguez Dx/Rx/DC Orders Prescriptions: No Action prazosin 1 MG capsule 1 mg PO QHS gabapentin 400 MG capsule 800 mg PO TID hydroxyzine HCl 50 MG tablet 50 mg PO QHS omeprazole magnesium 20 MG tablet,delayed release (DR/EC) 20 mg PO DAILY promethazine 25 mg tablet 25 mg PO TID PRN (Reason: nausea and vomiting) Qty: 14 0RF ondansetron 4 mg tablet,disintegrating 4 mg PO Q8H PRN (Reason: nausea and vomiting) Qty: 10 0RF quetiapine 50 mg tablet 50 mg PO QHS Patient Comments: TAKE ONE TO TWO TABLETS BY MOUTH AT BEDTIME lorazepam [Ativan] 1 mg Tablet 1 mg PO DAILY hydrocodone-acetaminophen 5-325 mg tablet 1 tab PO Q6H PRN PRN (Reason: Pain) 3 Days Qty: 10 0RF ondansetron 4 mg tablet,disintegrating 4 mg PO Q8H PRN PRN (Reason: Nausea) Qty: 10 0RF Primary Care Provider: Silverio Haley Referrals: Silverio Haley MD [Primary Care Provider] - What to do if you have Problems For any increased pain, shortness of breath, bleeding, nausea or vomiting, chestpain, or any unexpected problems, contact your Primary Care Provider. Call [facility] ([phone]) or report to the closest Emergency Room. Call 911 if necessary. 05/04/232004 <Electronically signed by Vikram Dominguez DO> Cosigner Signature (if applicable): CC: Dr. Silverio Haley MD ~ Signed [facility] Work Phone: [phone] 871-634408-09-2023 History of Present illness Narrative* Merced Hutchinson APRN.CLASSROOM TEACHER - 04/22/2023 11:32 AM EDT VIRTUAL VISIT PROGRESS NOTE This is an encounter initiated for an established patient, parent or guardian not originating from a related Evaluation & Management service provided within the previous 7 days nor leading to an Evaluation & Management service or procedure within the next 24 hours or soonest available appointment. This is a virtual visit. It required patient-provider interaction for the medical decision making as documented below. Patient has consented to this encounter. Persons Present: patient Data Reviewed: notes, labs, imaging Patient has consented to patient-provider interaction via telephone/virtual visit for the medical decision making documented in this telephone/virtual visit encounter. Total Time Spent: 19 minutes I have communicated my name and active licensure. The patient's identity and physical location wereverified at the time of this visit. Either the patient or their legal client care representative has been informed of the risks and benefits of -- and alternatives to -- treatment through a remote evaluation andconsents to proceed with the evaluation remotely. SUBJECTIVE Sally Vargas is a 42 year old female here today for a check up on her medical problems. Chief Complaint Patient presents with: Abdominal Pain NOLAN Zavala presents today for a virtual visit for follow up. Presents via my chart on the zoom platform. Still having abdominal pain, left sided, some on the right. Nausea and feels like she might throwup. She is having regular bowel movements. No constipation or diarrhea. No blood in stool or urine.Urine is dark. Drinking water. She has an appointment to see GI 06/24. Does not drink alcohol. No marijuana use. She has not done the stool test yet. Since last visit she went back to the ER at [facility]. Noted some kidney stones. Prior hysterectomy and gallbladder removal. She has been referred to pain management. Has an appointment set up. Her medications were reviewed today and her list is now up to date. Medications Current Outpatient Medications Medication Sig prochlorperazine (COMPAZINE) 10 mg tablet Take 1 tablet by mouth three times daily as needed for nausea/vomiting. wjtgtv-rrwpzels-vyrvnsw (CREON 3) 3,000-9,500- 15,000 unit delayed release capsule Take 2 capsules by mouth three times daily with meals. pantoprazole DR (PROTONIX) 40 mg tablet Take 1 tablet by mouth daily before breakfast. Take on empty stomach, 1/2 hr before meal. famotidine (PEPCID) 40 mg tablet Take 1 tablet by mouth once daily. atorvastatin (LIPITOR) 20 mg tablet Take 1 tablet by mouth daily at bedtime. For cholesterol. Cholecalciferol, Vitamin D3, 125 mcg (5,000 unit) cap Take 1 capsule by mouth once daily. montelukast (SINGULAIR) 10 mg tablet Take 1 tablet by mouth daily at bedtime. gabapentin (NEURONTIN) 800 mg tablet TAKE 1 TABLET BY MOUTH THREE TIMES A DAY albuterol HFA (VENTOLIN HFA) 90 mcg/actuation inhaler Inhale 2 Puffs as instructed every 4 hours asneeded for wheezing/shortness of breath. cyanocobalamin (VITAMIN B-12) 1,000 mcg tab Take 1 tablet by mouth once daily. QUEtiapine (SEROQUEL) 50 mg tablet Take 50 mg by mouth daily at bedtime. pantoprazole DR (PROTONIX) 40 mg tablet Take 1 tablet by mouth once daily. Take on empty stomach, 1/2 hr before meal. diphenhydrAMINE (BENADRYL) 25 mg capsule Take 50 mg by mouth at bedtime as needed. No current facility-administered medications for this visit. ALLERGIES Allergen Reactions Penicillins Rash Cephalexin Itching Chlorhexidine Rash Skin rash Toradol [Ketorolac] Rash Tramadol Rash Patient reports no allergy to Tramadol. Asa [Salicylates] Other: See Comments ulcers Contrast Dye [Iodin* Shortness of Breath Ibuprofen GI Upset Prednisone Other: See Comments makes agitated and mean ACTIVE PROBLEM LIST Pain of Multiple Sites - 04/11/2021 (Mild priority) Comment: No Narcotics from the Office: Patient has a long standing Hx of complaints of multiple areas of pain with negative work ups. Patient has gone to the ER multiple times for pain medication. Generalized Anxiety Disorder - 03/31/2016 (A priority) Comment: Seeing [facility] center. 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 Migraine Without Aura - 05/17/2008 (A priority) Comment: Has used imitrex with good response; Impaired Fasting Glucose - 05/17/2008 (A priority) Comment: Sugar 104 fasting, 04/21 Adjustment Insomnia - 03/31/2016 (B priority) Allergic rhinitis, cause unspecified - 05/17/2008 (B priority) Comment: Spring and summer Ovarian Cyst - 07/15/2012 (C priority) Benign Liver Cyst - 05/24/2010 (C priority, Chronic) Comment: CT scan at [facility] 11/2009 and 04/2010 showe 4 mm increase in size. No pain. No elevated LFTs on 03/11/2010. Calculus of Kidney - 05/17/2008 (C priority) Comment: Sees Dr. 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 Hydroureter, Left - 03/30/2017 Right Facial Numbness - 02/23/2017 Right Upper Extremity Numbness - 02/23/2017 Numbness of Right Lower Extremity - 02/23/2017 Weakness of Right Upper Extremity - 02/23/2017 Weakness of Right Lower Extremity - 02/23/2017 Vision Blurred - 02/23/2017 Lumbar Spine Pain - 02/23/2017 Cervical Spine Pain - 02/23/2017 Abnormal Mri, Lumbar Spine - 02/23/2017 Hydronephrosis of Left Kidney - 02/05/2017 Hydroureter On Left - 02/05/2017 Pain in Left Hip - 06/18/2016 Greater Trochanteric Bursitis - 06/18/2016 Social History Tobacco Use Smoking status: Every Day Packs/day: 0.50 Years: 3.00 Total pack years: 1.50 Types: Cigarettes Last attempt to quit: 01/12/2017 Years since quittin.2 Smokeless tobacco: Never Tobacco comments: Approx. 3 cigarettes daily-1 pack every week Vaping Use Vaping Use: Never used Substance Use Topics Alcohol use: Yes Comment: Occasional Drug use: Never Review of Systems Respiratory: Negative. Cardiovascular: Negative. Gastrointestinal: Positive for abdominal pain and nausea. Negative for abdominal distention, anal bleeding, blood in stool, constipation, diarrhea, rectal pain and vomiting. OBJECTIVE LMP 08/10/2006 Physical Exam Constitutional: General: She is awake. She is not in acute distress. Comments: During the virtual visit she is alert, oriented, breathing is quiet, not labored, no apparent distress. Neurological: Mental Status: She is alert. Psychiatric: Behavior: Behavior is cooperative. ASSESSMENT/PLAN: 1. Calculus of kidney - ICD9: 592.0, ICD10: N20.0 (primary diagnosis) Kidney stones noted with recent visit to [facility] ER, noted on prior exams, possible contributor to her pain. Will refer to urology for further eval/management. - CONSULT TO UROLOGY 2. Nausea - ICD9: 787.02, ICD10: R11.0 Sent in compazine. Continue on Protonix, Pepcid. 3. Abdominal pain, unspecified abdominal location - ICD9: 789.00, ICD10: R10.9 See #2 4. Acute pancreatitis without infection or necrosis, unspecified pancreatitis type - ICD9: 577.0, ICD10: K85.90 She potentially has a more chronic pancreatitis but recent labs stable. Can try to increase her Creon and see if helpful to improve her nausea and abdominal pain. - PROCHLORPERAZINE MALEATE 10 MG TABLET - LIPASE 3,000-PROTEASE 9,500-AMYLASE 15,000 UNIT CAPSULE, DELAYED REL - PANTOPRAZOLE 40 MG TABLET,DELAYED RELEASE Patient verbalizes understanding of instructions from today's visit and in agreement with treatmentplan. Questions answered. Agrees to call the office if symptoms do not improve or if they worsen. Return in about 3 months (around 07/23/2023) for Follow up on chronic conditions and medications.. Patient has consented to patient-provider interaction via telephone/virtual visit for the medical decision making documented in this telephone/virtual visit encounter. Total Time Spent: 19 minutes [facility] History of Present illness Narrative* Kalina Jj - 04/16/2023 10:58 AM EDT POPULATION HEALTH NAVIGATION OUTREACH Action/[facility] Called pt to schedule an appt in Pain Management. Transferred to PAIN Support: Patient Identified by Name and : YES, via phone Outreach Outcome/Action Spoke to patient / parent / legal guardian: Patient will return the call or ask for return call Did you use a PCP flex slot to schedule this appointment? No Reason for Outreach Care Gap or Scheduling/Wellness visits Payer: Payor: [employer] MEDICAID / Plan: [facility] MEDICAID / Product Type: Medicaid / Care Gap Reviewed:: Specialty Scheduling Reminder: Reminder note to check Health Maintenance for items below Health Maintenance items due: HEPATITIS B(1 of 3 - 3-dose series) Never done PNEUMOCOCCAL(2 - PCV) due on 05/19/2018 Navigation Signature: Kalina Jj April 16, 2023 10:58 AM documented in this encounterKn[facility]07-19-2023 Miscellaneous Notes* Telephone Encounter - Ivanna Torre RN - 04/01/2023 10:19 AM EDT Patient calls and notified of results and providers instructions. Patient verbalizes understanding. Ivanna Torre RN * Telephone Encounter - Merced Hutchinson APRN.CNP - 04/01/2023 9:44 AM EDT Please let her know celiac screen was negative. * Telephone Encounter - Lexy Desouza LPN - 04/01/2023 9:15 AM EDT Pt calling for lab results. Please advise. Lexy Desouza LPM documented in this encounterKn[facility]07-18-2023 Telephone encounter Note * Telephone Encounter - Megan Ardon LPN - 03/31/2023 11:15 AM EDT Patient called to schedule appointment with Dr Joyner. Checked the location of Ed and no available appt until 05/25. Checked for other providers and patient stated she will call her PCP. Call disconnected [id number] Miscellaneous Notes* Telephone Encounter - Megan Ardon LPN - 03/31/2023 11:15 AM EDT Patient called to schedule appointment with Dr Joyner. Checked the location of Ed and no available appt until 05/25. Checked for other providers and patient stated she will call her PCP. Call disconnected documented in this [facility]07-17-2023 Instructions* Patient Instructions* Merced Hutchinson APRN.MANUELITO - 03/30/2023 9:02 AM EDT Schedule with GI, needs seen [facility]. Can try and see what soonest is with [facility] Can also see if Dr. Martinez or Dr. Lau can see you sooner. [facility] Providers: Derik Evans M.D., F.A.C.G., F.A.Nitish Lang M.D. Darin J. Vaughn, P.A.-C. Kaylan Patiño, C.N.S. [address]) [place], [place] [address] [address] # [phone] [facility] Address: [address] [place] [address] [address], [place] [address] documented in this encounterKnox [facility]07-17-2023 History of Present illness Narrative* Merced Hutchinson APRN.CNP - 03/30/2023 8:36 AM EDT Transitional Care Management Progress Note The patients TCM visit was performed within the 14 days of discharge. TCM Eligibility Documentation The following information was gathered during the initial Patient Outreach Encounter. No flowsheet data found. If no data exists please enter it manually. If data exists please delete date of discharge and dateof initial contact seen below. Patient's Date of discharge: 03/16/2023 Date of initial coordinator contact after discharge: Patient contacted office 03/18 Discharge diagnosis: Acute on chronic pancreatitis Medication review completed Yes, done with visit today Provider Documentation: In follow-up of hospitalization, Sally Vargas is a 42 year old female with the chief complaintof hospital discharge and ER follow up. I have reviewed the patient s last hospital course including diagnostic testing performed during this hospitalization, their discharge medications, and my assessment and plan with the patient and anyfamily members present at today s visit. HPI: Sally Vargas is a 42 year old female established patient who presents today for hospital discharge and ER follow up. Seen in the ER at [place] on 03/23. ER note and hospital records are available in Care everywhere. She actually was admitted to [facility] from [place] on 03/14 and discharged 03/16 then returned to ER 03/23. Diagnosed with acute on chronic pancreatitis. She had an MRCP and was referred to Dr. Martinez for GI follow up. MRCP showed resolution of mild pancreatitis and no choledocholithiasis. Had just been in [facility] 02/25- 02/28 for pancreatitis also. Prior hysterectomy and cholecystectomy. She did reach out on 03/18 to the office. Went back to ER on 03/23 due to issues withher abdominal pain, nausea, and vomiting. Last visit was started on Creon, not really noticing muchimprovement. Has seen GI in the past, Dr. Gonzalez with [facility]. Did prior EGD/colonoscopy. She does not feel food really worsens her symptoms. Decreased appetite, some weight loss. No constipation but does have diarrhea. Denies any current marijuana/CBD use. PAST MEDICAL HISTORY: Reviewed and updated PAST MEDICAL HISTORY Diagnosis Date Allergic rhinitis, cause unspecified 05/17/2008spring and summer Benign liver cyst 05/24/2010 CT scan at [facility] 11/2009 and 04/2010 showe 4 mm increase in size. No pain. No elevated LFTs on 03/11/2010. Calculus of kidney 05/17/[address] Nicolas: Hospitalized age 20, and again later -- no procedures so far ([facility], [address] [facility]) Cancer (HCC) COVID-19 virus infection 10/07/202109/2021 Diverticulosis Dysmenorrhea Hemorrhoids History of blood transfusion Impaired fasting glucose 05/17/2008 Sugar 104 fasting, 04/21 Marijuana use 07/10/2020 ER visit 07/06/2020, [place] MIGRAINE 05/17/2008 Has used imitrex with good response; Keeps Vicodin on hand when needed; Ovarian cyst 07/15/2012 Pancreatitis Smoker 05/17/2008 Started age 26, 1/2 a PPD ALLERGIES: Reviewed and updated ALLERGIES Allergen Reactions Penicillins Rash Cephalexin Itching Chlorhexidine Rash Skin rash Toradol [Ketorolac] Rash Tramadol Rash Patient reports no allergy to Tramadol. Asa [Salicylates] Other: See Comments ulcers Contrast Dye [Iodin* Shortness of Breath Ibuprofen GI Upset Prednisone Other: See Comments makes agitated and mean MEDICATIONS: Reviewed and updated Current Outpatient Medications Medication Sig tnbjwz-bbkoltmj-puhlipc (CREON 3) 3,000-9,500- 15,000 unit delayed release capsule Take 1 capsule by mouth three times daily with meals. atorvastatin (LIPITOR) 20 mg tablet Take 1 tablet by mouth daily at bedtime. For cholesterol. Cholecalciferol, Vitamin D3, 125 mcg (5,000 unit) cap Take 1 capsule by mouth once daily. montelukast (SINGULAIR) 10 mg tablet Take 1 tablet by mouth daily at bedtime. gabapentin (NEURONTIN) 800 mg tablet TAKE 1 TABLET BY MOUTH THREE TIMES A DAY albuterol HFA (VENTOLIN HFA) 90 mcg/actuation inhaler Inhale 2 Puffs as instructed every 4 hours asneeded for wheezing/shortness of breath. cyanocobalamin (VITAMIN B-12) 1,000 mcg tab Take 1 tablet by mouth once daily. QUEtiapine (SEROQUEL) 50 mg tablet Take 50 mg by mouth daily at bedtime. pantoprazole DR (PROTONIX) 40 mg tablet Take 1 tablet by mouth once daily. Take on empty stomach, 1/2 hr before meal. diphenhydrAMINE (BENADRYL) 25 mg capsule Take 50 mg by mouth at bedtime as needed. famotidine (PEPCID) 40 mg tablet Take 1 tablet by mouth once daily. benzonatate (TESSALON PERLES) 100 mg capsule Take 1 capsule by mouth three times daily as needed for cough. No current facility-administered medications for this visit. SOCIAL HISTORY: Reviewed and updated Social History Tobacco Use Smoking status: Every Day Packs/day: 0.50 Years: 3.00 Total pack years: 1.50 Types: Cigarettes Last attempt to quit: 01/12/2017 Years since quittin.2 Smokeless tobacco: Never Tobacco comments: Approx. 3 cigarettes daily-1 pack every week Vaping Use Vaping Use: Never used Substance Use Topics Alcohol use: Yes Comment: Occasional Drug use: Never FAMILY HISTORY: Reviewed and updated FAMILY HISTORY Problem Relation Age of Onset Thyroid Mother unsure of details Arthritis Mother fibromyalgia Blood Disease Mother blood clots, unsure of details (aorta?) No Known Problems Father No Known Problems Sister No Known Problems Sister No Known Problems Brother Diabetes Maternal Grandmother Diabetes Maternal Grandfather Lipids Maternal Grandfather Stroke Maternal Grandfather Coronary Artery Disease Maternal Grandfather Cataract Maternal Grandfather Pancreatic Cancer Maternal Grandfather Diabetes Paternal Grandmother Diabetes Paternal Grandfather Coronary Artery Disease Paternal Grandfather No Known Problems Son No Known Problems Son Breast Cancer Maternal Aunt Lipids Maternal Uncle Coronary Artery Disease Maternal Uncle other (ovarian ca) Other maternal cousin Colon Cancer No Family History Review of Systems Constitutional: Positive for appetite change and unexpected weight change. Respiratory: Negative. Cardiovascular: Negative. Gastrointestinal: Positive for abdominal pain, diarrhea, nausea and vomiting. Negative for abdominal distention, anal bleeding, blood in stool, constipation and rectal pain. Genitourinary: Negative. All other systems reviewed and negative, other than HPI. Physical Exam Vitals and nursing note reviewed. Constitutional: General: She is awake. She is not in acute distress. Appearance: Normal appearance. She is well-developed and well-groomed. She is not ill-appearing, toxic-appearing or diaphoretic. HENT: Head: Normocephalic. Right Ear: External ear normal. Left Ear: External ear normal. Nose: Nose normal. Eyes: General: Vision grossly intact. Conjunctiva/sclera: Conjunctivae normal. Pupils: Pupils are equal, round, and reactive to light. Neck: Vascular: No JVD. Trachea: Trachea normal. Cardiovascular: Rate and Rhythm: Normal rate and regular rhythm. Pulses: Normal pulses. Heart sounds: Normal heart sounds. No murmur heard. Pulmonary: Effort: Pulmonary effort is normal. No accessory muscle usage, prolonged expiration or respiratory distress. Breath sounds: Normal breath sounds. Abdominal: General: Bowel sounds are normal. Palpations: Abdomen is soft. There is no shifting dullness, hepatomegaly, splenomegaly or mass. Tenderness: There is abdominal tenderness in the right upper quadrant. There is no guarding or rebound. Negative signs include England's sign and McBurney's sign. Musculoskeletal: Cervical back: Neck supple. Skin: General: Skin is warm and dry. Capillary Refill: Capillary refill takes less than 2 seconds. Neurological: General: No focal deficit present. Mental Status: She is alert and oriented to person, place, and time. Mental status is at baseline. Psychiatric: Attention and Perception: Attention and perception normal. Mood and Affect: Mood and affect normal. Speech: Speech normal. Behavior: Behavior normal. Behavior is cooperative. Thought Content: Thought content normal. Cognition and Memory: Cognition and memory normal. Judgment: Judgment normal. BP 100/70 Pulse 70 Wt 203 lb (92.1kg) SpO2 98% LMP 08/10/2006 1. I have reviewed the patient record including associated test results during the last hospitalization Yes 2. I have reviewed Lab test Yes 3. I have reviewed Radiology test Yes 4. I reviewed assessment/plan with the patient/family member Yes ASSESSMENT/PLAN 1. Acute pancreatitis without infection or necrosis, unspecified pancreatitis type - ICD9: 577.0, ICD10: K85.90 (primary diagnosis) Acute on chronic pancreatitis, resolved prior to discharge. Issues continue with abdominal pain, nausea, vomiting. Pain is to the right side. MRCP in [facility] showed resolution of mild pancreatitis. Has not set up GI follow up. Advised see GI [facility] since still having issues. Can set up with general surgery to discuss scopes if not able to get in with GI soon. Can check with [facility] GI, [facility], Dr. Martinez, and [facility] in [place] to see where she can be seen soonest. On PPI, will add H2 corinne. She declines script for bentyl to try and help. Does not want to increase Creon, has phenergan for nausea and this is helpful. We can check labs today, look for any autoimmune issues contributing. Discussed increased water intake, avoid fatty/greasy foods, avoid alcohol. - CONSULT TO GASTROENTEROLOGY - HEPATIC FUNCTION PNL - BASIC METABOLIC PNL - AMYLASE BLD - LIPASE BLD - KRISTI BY IFA SCREEN - C-REACTIVE PROTEIN (CRP) - SED RATE WESTERGREN - FAMOTIDINE 40 MG TABLET - CELIAC SCREEN WITH REFLEX - CONSULT TO GENERAL SURGERY 2. Chronic pancreatitis, unspecified pancreatitis type (HCC) - ICD9: 577.1, ICD10: K86.1 See #1 above. - CONSULT TO GENERAL SURGERY 3. Intractable nausea and vomiting - ICD9: 536.2, ICD10: R11.2 See #1 - CONSULT TO GASTROENTEROLOGY - HEPATIC FUNCTION PNL - BASIC METABOLIC PNL - FAMOTIDINE 40 MG TABLET - CELIAC SCREEN WITH REFLEX - CONSULT TO GENERAL SURGERY - H PYLORI AG BY EIA,STOOL 4. Right sided abdominal pain - ICD9: 789.09, ICD10: R10.9 See #1 - CONSULT TO GENERAL SURGERY - H PYLORI AG BY EIA,STOOL 5. Encounter for therapeutic drug monitoring - ICD9: V58.83, ICD10: Z51.81 - HEPATIC FUNCTION PNL - CBC + DIFF - BASIC METABOLIC PNL - AMYLASE BLD - LIPASE BLD Portions of this note have been entered by ancillary staff. I have reviewed and when necessary edited, so that they are an adequate record of my encounter with this patient Please note that parts of this document were created using voice recognition software and therefore may contain grammatical errors. Patient verbalizes understanding of instructions from today's visit and in agreement with treatmentplan. Questions answered. Agrees to call the office if questions, concerns or issues with acute symptoms not improving or if they worsen. See diagnoses and orders for additional plan(s). Allergies and medications were reviewed, list was updated, and refills given if needed. Past medical, surgical, social, and family history reviewed and updated as appropriate. Encouraged proper diet & exercise as well as compliance with taking medications. Age- appropriate health preventative measures were discussed. Return if symptoms worsen or fail to improve, for Keep next scheduled appointment.. Merced Hutchinson APRN.MANUELITO [facility] Miscellaneous Notes* Telephone Encounter - Silverio Haley MD - 03/26/2023 9:13 PM EDT Noted * Telephone Encounter - Nunu Carcamo RN - 03/25/2023 10:16 AM EDT Patient phoned for urine culture results done on 03-18-23 and given results. Patient reports she was seen in [place] ER on 03-19 and 03-23 for right side/center to upper torso and back pain. Reports the pain continues to come and go and at times moderate pain. Reports her urine is dark yellow. Advised p atient to increased water intake and patient agreeable. Patient scheduled a ER f/u visit for 20 min. Re-scheduled patient for a 40 min ER f/u. [facility] Miscellaneous Notes* Telephone Encounter - Silverio Haley MD - 03/18/2023 7:33 PM EDT Agree with referral back to ER * Telephone Encounter - Mildred Tolbert RN - 03/18/2023 7:19 PM EDT Patient states she was just discharged from the hospital with recurrent pancreatitis. Today she developed severe mid to upper abdominal pain/back pain that she rates 9/10. She states she is nauseatedand unable to eat or drink anything. Reviewed triage protocol guidelines with patient. Disposition:ED now. Mildred Tolbert RN Reason for Disposition [1] SEVERE pain (e.g., excruciating) AND [2] present > 1 hour Answer Assessment - Initial Assessment Questions 1. LOCATION: middle to upper abdomen 2. RADIATION: No radiation 3. ONSET: Today 4. SUDDEN: Today's episode started suddenly but she was just discharged from hospital with recurrent pancreatitis 5. PATTERN: constant 6. SEVERITY: Patient states pain is 9/10 at this time - SEVERE (8-10): excruciating pain, doubled over, unable to do any normal activities 7. RECURRENT SYMPTOM: she says this is the kind of pain she has with pancreatitis 8. AGGRAVATING FACTORS: eating and drinking make it worse 9. CARDIAC SYMPTOMS: patient says she is nauseated and unable to eat or drink 10. OTHER SYMPTOMS: complains of back pain, nausea, 11. : NO Protocols used: Abdominal Pain - Ezhgr-LEEUS-XQ documented [facility] Note Discharge Instructions Thank you for allowing [facility] to assist you with your healthcare needs. The following is importantdischarge information regarding your hospital visit. 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 We sent you for an MRCP today to better visualize your pancreas as well as the common bile duct and liver. We consult Dr. Martinez for recommendation. Follow Up Appointments Follow Up with GAMA MARTINEZ MD When Within 5 to 7 days Why: follow-up for chronic pancreatitis Where: [address] [address] [phone] Follow Up with MERCED HUTCHINSON When Within 5 to 7 days Why: 1-2 weeks for post-hospital follow-up Where: [address] [place] [address]- [phone] The Following Activity and Diet Have Been Ordered for You Discharge Activity - Ordered -- Resume your pre-hospitalization activity, 03/16/23 16:33:00 EDT Discharge Diet - Ordered -- No changes were made to your diet during your hospital stay. Please resume your pre hospitalization diet on discharge., 03/16/23 16:33:00 EDT The Following Treatments Have Been Ordered for You Discharge Labs No qualifying data available. Discharge Radiology No qualifying data available. Other Therapies Discharge Outpatient to Other Therapy/Tests - Ordered -- Your therapy ordered is: Gastric emptying study, Relevant Diagnosis: Nausea/vomting, Reason for therapy: Chronic nausea/vomiting, 03/16/23 16:33:00 EDT Post Acute Orders No qualifying data available. Allergies Advil Contrast dye Flagyl Motrin NSAIDS Toradol Toradol IV/IM Zofran aspirin penicillin Medications Please ask your primary doctor or pharmacist before taking any other medication not listed, including over the counter drugs, herbal medications, vitamins and or supplements as they may interact withyour home medications. What How Much When Why Instructions Last Dose New acetaminophen-hydrocodone (Acushnet 325- 5 mg oral tablet) 1 tab(s) by mouth Four (4) times a day as needed for Pain, scale 4-6 Acute pancreatitis Duration: 3 Days Pickup at [facility]/pharmacy #[id number] 03/16/23 at 1:54pm New prochlorperazine (prochlorperazine 10 mg oral tablet) 1 tab(s) by mouth Three (3) times a day as needed for Nausea/Vomiting Duration: 5 Days Pickup at [facility]/pharmacy #[id number] 03/16/23 at 0950am Unchanged albuterol (albuterol MDI (90 mcg/ inh) CFC free inhalation aerosol) 1 puff(s) by inhalation Every 4 hours as needed for as needed for wheezing none Unchanged ARIPiprazole (ARIPiprazole 10 mg oral tablet) 1 tab(s) by mouth Once a day 03/16/23 at 0950am Unchanged atorvastatin (atorvastatin 20 mg oral tablet) 1 tab(s) by mouth Once a day none today Unchanged cholecalciferol (cholecalciferol 125 mcg (5000 intl units) oral capsule) 1 cap by mouth Once a day none today Unchanged escitalopram (Lexapro 10 mg oral tablet) 1 tab(s) by mouth Once a day 03/16/23 at 0950am Unchanged gabapentin (gabapentin 400 mg oral capsule) 1 cap by mouth Three (3) times a day 03/16/23 at 0950 and 3:15pm Unchanged montelukast (montelukast 10 mg oral tablet) 1 tab(s) by mouth Daily at bedtime none Unchanged pantoprazole (Protonix 40 mg oral enteric coated tablet) 1 tab(s) by mouth Once a day 03/16/23 at 0950am Pharmacy Information [facility]/pharmacy #[id number]: [address], [place] [phone] What How Much When Comments Stop Taking formoterol-mometasone (Dulera 200 mcg-5 mcg/ inh Metered Dose Inhaler) 2 puff(s) by inhalation Two (2) times a day Stop Taking QUEtiapine (QUEtiapine 100 mg oral tablet) 1 tab(s) by mouth Daily at bedtime Please take this list to your next doctor s visit. Bring all medications you take, including over the counter medications, herbals and other supplements with you to your doctor s visit. Patients and families are reminded to discard old lists and to update any records with all medication providers or retail pharmacies. Education Materials Chronic Pancreatitis Chronic pancreatitis is long-lasting inflammation and scarring of the pancreas. The pancreas is a gland that is located behind the stomach. It makes enzymes that help to digest food. The pancreas also releases hormones called glucagon and insulin, which help regulate blood sugar (glucose). Damage to the pancreas may affect digestion, cause pain in the upper abdomen and back, and cause diabetes. Inflammation can also irritate other organs in the abdomen near the pancreas. At first, pancreatitis may be sudden (acute). If you have several or prolonged episodes of acute pancreatitis, the condition can turn into chronic pancreatitis. What are the causes? The most common cause of this condition is alcohol abuse. Other causes include: High (elevated) levels of triglycerides in the blood (hypertriglyceridemia). Gallstones or other conditions that can block the tube that drains the pancreas (pancreatic duct). Pancreatic cancer. Cystic fibrosis. Too much calcium in the blood (hypercalcemia), which may be caused by an overactive parathyroid gland (hyperparathyroidism). Certain medicines. Injury to the pancreas. Infection. Autoimmune pancreatitis. This is when the body's disease-fighting (immune) system attacks the pancreas. Genes that are passed from parent to child (inherited). In some cases, the cause may not be known. What increases the risk? This condition is more likely to develop in: Men. People who are 35 55 years old. People who have a family history of pancreatitis. People who smoke tobacco. People who drink large amounts of alcohol over a long period of time. What are the signs or symptoms? Symptoms of this condition may include: Pain in the abdomen or upper back. Pain may get worse after eating. Nausea and vomiting. Fever. Weight loss. A change in the color and consistency of bowel movements, such as stools that are oily, fatty, or jackie-colored. How is this diagnosed? This condition is diagnosed based on your symptoms, your medical history, and a physical exam. You may have tests, such as: Blood tests. Stool samples. Biopsy of the pancreas. This is the removal of a small amount of pancreas tissue to be tested in a lab. Imaging tests, such as: ? X-rays. ? CT scan. ? MRI. ? Ultrasound. How is this treated? You may need to be treated at a hospital. Treatment may involve: Resting the pancreas. You may need to stop eating and drinking for a few days to give your pancreastime to recover. During this time, you will be given IV fluids to keep you hydrated. Controlling pain. You may be given pain medicines by mouth (orally) or as injections. Improving digestion. You may be given: ? Medicines to replace your pancreatic enzymes. ? Vitamin supplements. ? A specific diet to follow. You may work with a diet and clinical lab specialist (dietitian) to make aneating plan. Surgery to: ? Clear the pancreatic ducts of any blockages, such as gallstones. ? Remove any fluid or damaged tissue from the pancreas. Other treatments may include: Preventing diabetes. Your health care provider may recommend that you: ? Get regular screening tests for diabetes. ? Monitor your blood glucose regularly. Lifestyle changes, such as stopping alcohol use. Steroid medicines, if your condition is caused by your immune system attacking your body's own tissues (autoimmune disease). Follow these instructions at home: Eating and drinking Do not drink alcohol. If you need help quitting, ask your health care provider. Follow a diet as told by your health care provider or dietitian, if this applies. This may include: ? Limiting how much fat you eat. ? Eating smaller meals more often. ? Avoiding caffeine. Drink enough fluid to keep your urine pale yellow. General instructions Take wtkl-qgc-mhsplfm and prescription medicines only as told by your health care provider. These include vitamin supplements. Do not drive or use heavy machinery while taking prescription pain medicine. If you are taking prescription pain medicine, take actions to prevent or treat constipation. Your health care provider may recommend that you: ? Take an yxzi-euv-ieyjuuy or prescription medicine for constipation. ? Eat foods that are high in fiber such as whole grains and beans. ? Limit foods that are high in fat and processed sugars, such as fried or sweet foods. Do not use any products that contain nicotine or tobacco, such as cigarettes and e-cigarettes. If you need help quitting, ask your health care provider. If recommended by your health care provider, monitor your blood glucose at home. Keep all follow-up visits as told by your health care provider. This is important. Contact a health care provider if: You have pain that does not get better with medicine. You have a fever. You have sudden weight loss. Get help right away if: Your pain suddenly gets worse. You have sudden swelling in your abdomen. You start to vomit often. You vomit blood. You have diarrhea that does not go away. You have blood in your stool. You become confused or you have trouble thinking clearly. Summary Chronic pancreatitis is long-lasting inflammation and scarring of the pancreas. Damage to the pancreas may affect digestion, cause pain in the upper abdomen and back, and cause diabetes. Inflammationcan also irritate other organs in the abdomen near the pancreas. Common causes of this condition are alcohol abuse, gallstones, high (elevated) levels of triglycerides, and certain medicines. This condition is sometimes treated at a hospital and may involve resting the pancreas, controllingpain, replacing enzymes, and avoiding alcohol. This information is not intended to replace advice given to you by your health care provider. Make sure you discuss any questions you have with your health care provider. Document Released: 09/26/2016 Document Revised: 06/20/2019 Document Reviewed: 04/30/2018 Elsevier Patient Education 2020 [employer] Additional Information VACCINATE! IT SAVES LIVES! Members of the community who have not yet received the COVID-19 vaccine and would like to receive it can visit one of [facility] vaccine clinics. There are many vaccine clinic locations within the [facility]. For locations and available times, please visit https://gettheshot.coronavirus.[place].gov/. It is important to note that some COVID mobile vaccine clinics are held outdoors and may be canceled in rainy or stormy conditions. To learn more about pediatric vaccinations (ages 5-11), we invite you to visit the [employer] webpage. https://www.Dapt[employer].org/pages/7798-Tlfwv-Buxrrioyojm-Pgiccblogg-Tnriz-Iky stions.htmlTo learn more about the COVID-19 vaccine, we invite you to visit the CDC website for a list of frequently asked questions.https://www.cdc.gov/coronavirus/2019-ncov/vaccines/faq.html [email or web address] Patient Portal Access Instructions: Stay connected with your healthcare team and access your personal medical information anytime with the [email or web address] Patient Portal. Please follow the directions below to create your [email or web address] account: 1.Access the email account you provided upon registration to the hospital/physician office.2.Look for an invitation email from [facility].3.Open the email and access the invitation link: AcceptInvitation to [email or web address].4.Fill in the required xiong to create your account. To access your account, visit [email or web address]. Click the blue button labeled Access Patient Portal and then log in with the username and password that you created in the steps above. You will be able to view your test results, lab results, a summary of your visits, upcoming appointments and more. There is also a convenient messaging option where you can send secure messages to your p rovider. In addition, you will have the ability to download any documents or summaries to your computer and/or send the information securely to a physician. Remember that your healthcare information is confidential, so carefully consider who you will allowto register on the [email or web address] Patient Portal for access to your information. You can also access the [place] [facility] Patient Portal on the [place] [facility] mini. Simply click on Patient Portal and then log into your account. If you would like to receive a full copy of your medical records, please contact the [facility] Medical Records Department by calling [phone], Thursday through Thursday between 8 a.m. and 4:30 p.m. HOW TO SAFELY DISPOSE OF PRESCRIPTION MEDICATIONS Please use one of the following methods to safely dispose of your unused medications. 1.Use a drug disposal kit: the drug disposal pouch allows you to safely discard your old and unuseddrugs. Ask your nurse to give you one when you are discharged.2.Visit a local take-back location: Many local pharmacies and police departments have programs that collect old and unwanted prescriptiondrugs. Call your local pharmacy or go to http://Algorithmia/0A5Il1r to find one close to you.3.Make use of household items: Use cat litter or old coffee grounds to dispose medications if other options arenot available. Mix your drugs with these household products, seal them in an airtight container andthrow it into the garbage. Call [facility]: [phone] to be sure your drugs can be disposed of in this way. Some medicines may require a different approach.4.Never flush your medications down the toilet. IF YOU HAVE BEEN PRESCRIBED AN OPIOID FOR PAIN If you have been prescribed an opioid (such as hydrocodone, oxycodone or morphine), it is critical to understand the possible side effects and risks of opioid pain medications. Even when taken as directed, opioids can have several side effects including: Tolerance, meaning you might need to take more of a medication for the same pain relief. Nausea, vomiting and/or constipation. Sleepiness, dizziness, dry mouth, confusion, depression or itching. Physical dependence, meaning you have withdrawal symptoms when a medication is stopped, can develop within a few days. KNOW YOUR RESPONSIBILITIES It is important to know exactly how much and how often to take the opioid pain medications you are prescribed. Never take opioids in higher amounts or more often than prescribed. Do not combine opioids with alcohol or other drugs that cause drowsiness, such as benzodiazepines, also known as benzos, including diazepam and alprazolam, muscle relaxants or sleep aids. Never sell or share prescription opioids. This is illegal. Store opioids in a secure place and out of reach of others (including children, family, friends and visitors). The last page of this document has been signed and retained as a CHART COPY. Signatures Patient Education Materials Chronic Pancreatitis Medication Leaflets My discharge plan and instructions have been reviewed and explained to me and I,SALLY VARGAS understand my current condition and have read and understand these discharge instructions. I have received a written copy of the plan/instructions. If I have questions, I am aware that I should contact my doctor. 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 COMPARISON: CT abdomen pelvis 02/26/2023 HISTORY: ORDERING SYSTEM PROVIDED HISTORY: Reason for Exam: Pancreatitis FINDINGS: The gallbladder is surgically absent. There is no intrahepatic or extrahepatic biliary ductal dilation. The common bile duct (CBD) measures 4 mm. There is no filling defect, abrupt cutoff or abnormal tapering to suggest choledocholithiasis, intrinsic or extrinsic lesion or stricture of the CBD. Multiple hepatic cysts measuring up to 2.8 cm. There is no edema involving the pancreas or peripancreatic tissues. No areas of peripancreatic inflammation. There is no pancreatic duct dilation. IMPRESSION: 1. No choledocholithiasis. 2. Resolution of previously seen mild pancreatitis. I have personally reviewed the images of this examination and agree with the resident's findings and interpretation. Interpreted by: Ruben Emmanuel MD Preliminary Report By: Allie Sapp Electronically signed By Ruben Emmanuel MD Dictated Date: 03/16/2023 10:54:12 AM Prelim Date: 03/16/2023 4:17:14 PM Sign Date: 03/16/2023 4:17:14 PM Ordering Provider: [id number] [facility] Discharge instructions Patient Education 03/16/2023 10:11:52 Chronic Pancreatitis Chronic Pancreatitis Chronic pancreatitis is long-lasting inflammation and scarring of the pancreas. The pancreas is a gland that is located behind the stomach. It makes enzymes that help to digest food. The pancreas also releases hormones called glucagon and insulin, which help regulate blood sugar (glucose). Damage to the pancreas may affect digestion, cause pain in the upper abdomen and back, and cause diabetes. Inflammation can also irritate other organs in the abdomen near the pancreas. At first, pancreatitis may be sudden (acute). If you have several or prolonged episodes of acute pancreatitis, the condition can turn into chronic pancreatitis. What are the causes? The most common cause of this condition is alcohol abuse. Other causes include: High (elevated) levels of triglycerides in the blood (hypertriglyceridemia). Gallstones or other conditions that can block the tube that drains the pancreas (pancreatic duct). Pancreatic cancer. Cystic fibrosis. Too much calcium in the blood (hypercalcemia), which may be caused by an overactive parathyroid gland (hyperparathyroidism). Certain medicines. Injury to the pancreas. Infection. Autoimmune pancreatitis. This is when the body's disease-fighting (immune) system attacks the pancreas. Genes that are passed from parent to child (inherited). In some cases, the cause may not be known. What increases the risk? This condition is more likely to develop in: Men. People who are 35 55 years old. People who have a family history of pancreatitis. People who smoke tobacco. People who drink large amounts of alcohol over a long period of time. What are the signs or symptoms? Symptoms of this condition may include: Pain in the abdomen or upper back. Pain may get worse after eating. Nausea and vomiting. Fever. Weight loss. A change in the color and consistency of bowel movements, such as stools that are oily, fatty, or jackie-colored. How is this diagnosed? This condition is diagnosed based on your symptoms, your medical history, and a physical exam. You may have tests, such as: Blood tests. Stool samples. Biopsy of the pancreas. This is the removal of a small amount of pancreas tissue to be tested in a lab. Imaging tests, such as: ?X-rays. ?CT scan. ?MRI. ?Ultrasound. How is this treated? You may need to be treated at a hospital. Treatment may involve: Resting the pancreas. You may need to stop eating and drinking for a few days to give your pancreastime to recover. During this time, you will be given IV fluids to keep you hydrated. Controlling pain. You may be given pain medicines by mouth (orally) or as injections. Improving digestion. You may be given: ?Medicines to replace your pancreatic enzymes. ?Vitamin supplements. ?A specific diet to follow. You may work with a diet and clinical lab specialist (dietitian) to make an eating plan. Surgery to: ?Clear the pancreatic ducts of any blockages, such as gallstones. ?Remove any fluid or damaged tissue from the pancreas. Other treatments may include: Preventing diabetes. Your health care provider may recommend that you: ?Get regular screening tests for diabetes. ?Monitor your blood glucose regularly. Lifestyle changes, such as stopping alcohol use. Steroid medicines, if your condition is caused by your immune system attacking your body's own tissues (autoimmune disease). Follow these instructions at home: Eating and drinking Do not drink alcohol. If you need help quitting, ask your health care provider. Follow a diet as told by your health care provider or dietitian, if this applies. This may include: ?Limiting how much fat you eat. ?Eating smaller meals more often. ?Avoiding caffeine. Drink enough fluid to keep your urine pale yellow. General instructions Take helx-bvr-bkbxyxb and prescription medicines only as told by your health care provider. These include vitamin supplements. Do not drive or use heavy machinery while taking prescription pain medicine. If you are taking prescription pain medicine, take actions to prevent or treat constipation. Your health care provider may recommend that you: ?Take an zomz-ukv-esydhfj or prescription medicine for constipation. ?Eat foods that are high in fiber such as whole grains and beans. ?Limit foods that are high in fat and processed sugars, such as fried or sweet foods. Do not use any products that contain nicotine or tobacco, such as cigarettes and e-cigarettes. If you need help quitting, ask your health care provider. If recommended by your health care provider, monitor your blood glucose at home. Keep all follow-up visits as told by your health care provider. This is important. Contact a health care provider if: You have pain that does not get better with medicine. You have a fever. You have sudden weight loss. Get help right away if: Your pain suddenly gets worse. You have sudden swelling in your abdomen. You start to vomit often. You vomit blood. You have diarrhea that does not go away. You have blood in your stool. You become confused or you have trouble thinking clearly. Summary Chronic pancreatitis is long-lasting inflammation and scarring of the pancreas. Damage to the pancreas may affect digestion, cause pain in the upper abdomen and back, and cause diabetes. Inflammationcan also irritate other organs in the abdomen near the pancreas. Common causes of this condition are alcohol abuse, gallstones, high (elevated) levels of triglycerides, and certain medicines. This condition is sometimes treated at a hospital and may involve resting the pancreas, controllingpain, replacing enzymes, and avoiding alcohol. This information is not intended to replace advice given to you by your health care provider. Make sure you discuss any questions you have with your health care provider. Document Released: 09/26/2016 Document Revised: 06/20/2019 Document Reviewed: 04/30/2018 [employer] Patient Education [employer]. Follow Up Care 03/15/2023 11:13:46 With:GAMA MARTINEZ MD Address: [address] [place] [phone]- [phone] When:5 to 7 days Comments:follow-up for chronic pancreatitis With:MERCED HUTCHINSON APRN-CLASSROOM TEACHER Address: [address] [place] [phone]- [phone] When:5 to 7 days Comments:1-2 weeks for post-hospital follow-up [facility] 07-03-2023 Note ORIGINAL EXAMINATION: MRCP03/16/2023 9:45 am TECHNIQUE: MRCP was performed without the administration of intravenous contrast. COMPARISON: CT abdomen pelvis 02/26/2023 HISTORY: ORDERING SYSTEM PROVIDED HISTORY: Reason for Exam: Pancreatitis FINDINGS: The gallbladder is surgically absent. There is no intrahepatic or extrahepatic biliary ductal dilation. The common bile duct (CBD) measures 4 mm. There is no filling defect, abrupt cutoff or abnormal tapering to suggest choledocholithiasis, intrinsic or extrinsic lesion or stricture of the CBD. Multiple hepatic cysts measuring up to 2.8 cm. There is no edema involving the pancreas or peripancreatic tissues. No areas of peripancreatic inflammation. There is no pancreatic duct dilation. IMPRESSION: 1. No choledocholithiasis. 2. Resolution of previously seen mild pancreatitis. I have personally reviewed the images of this examination and agree with the resident's findings and interpretation. Interpreted by: Ruben Emmanuel MD Preliminary Report By: Allie Sapp Electronically signed By Ruben Emmanuel MD Dictated Date: 03/16/2023 10:54:12 AM Prelim Date: 03/16/2023 4:17:14 PM Sign Date: 03/16/2023 4:17:14 PM Ordering Provider: PIERCE [facility]07-02-2023 Evaluation + Plan noteExtracted from: Title:History and Physical Author:PIERCE MARS CAR ATTENDANT-CLASSROOM TEACHER Date:03/15/23 1. Acute pancreatitis Acute on chronic, accompanied by worsening nausea and pain *Patient was just a [facility] and diagnosed with mild acute pancreatitis 02/25, discharged home on 02/28. Was doing well but pain and nausea returned a few days ago. *Consult placed to Dr. Martinez, GI, for recommendation. *Send patient for MRCP in the am. *Continue IV and PO pain medication and antiemetics. *Allow clear liquid diet as tolerated. *Repeat CBC, CMP, lipid profile and magnesium level in the am. 2. Hypercholesteremia Chronic *Hold statin for now. *Check lipid profile in am. 3. Anxiety Chronic *Continue current home medications. 4. Chronic lower back pain Chronic *Continue current home medications. 5. Tobacco use Chronic *Encourage cessation. *May have nicotine patch PRN. DVT prophylaxis with SCDs. Code status: Full Code. Labs, diagnostic test and progress notes reviewed as noted in HPI. Plan of care discussed with patient. All questions answered. Patient verbalizes understanding and is agreeable with plan of care. This case was discussed with collaborating physician, Dr. Ainsley Mckinney. 70 minutes spent reviewing chart from transferring hospital, past diagnostic tests, reviewing lab results, vital sign trends, medical history, reviewing medications and ordering home medications, notes from previous admission, examining patient, discussing plan of care, collaborating with physician, and documenting in chart. [facility] 07-02-2023 Note Date of Service 03/15/2023 Chief Complaint Abdominal pain, intractable nausea/vomiting History of Present Illness Patient is a 42-year-old female, who follows with Merced Hutchinson CNP with hyperlipidemia, anxiety andchronic low back pain, presented initially to [facility] with the chief complaint of abdominal pain. Patient states the pain is on the right side between upper and lower quadrants and started a few days ago. It has been accompanied by nausea and vomiting. She has been unable to keep food or fluids down since it started a few days ago. Patient was just admitted to [facility] from02/20-02/28/2023. She was initially admitted due to intractable headache and sodium 118. She was seen by neurology during this admission who ordered MRI/MRV of the brain and lumbar puncture. Patient maryjane martinezly refused lumbar puncture. The MRI/MRV of the brain were unremarkable. The headache eventuallyresolved and then she developed right upper quadrant pain which she stated was similar to past episodes of pancreatitis. CT of abdomen/pelvis was done which revealed mild acute pancreatitis. Lipase was checked and was 86 on 02/25. Patient exhibited drug-seeking behaviors during the headache evaluation and treatment so a one-time dose of dilaudid was given and patient was otherwise managed on Acushnet. Patient improved and was discharged home on Acushnet, prochlorperazine and medrol dose-pack (per neurology for headache). She states she was doing well until a few days ago. She has not follow-up with h er PCP since her discharge. Patient reports past alcohol abuse but none recently. She does not haveher gallbladder. Her lipid profile was checked during her past hospitalization and cholesterol 232,triglycerides 334, HDL 34 and LDL 131. She denies any fever, chills, cough, shortness of breath, chest pain, diarrhea or dysuria. In the emergency department, CT of the abdomen/pelvis revealed no significant interval change, post-cholecystectomy and post-hysterectomy, multiple hepatic cysts. White blood cell count 15.7. CBC otherwise unremarkable. CMP significant for glucose 112, creatinine 1.12, AST 8, and GFR 53. Lipase 103. Troponin negative. EKG revealed sinus rhythm with T wave abnormality. Urinalysis was unremarkable. Patient was medicated by ED physician and case was discussed with the night auditor POWER HOUSE ENGINEER. Due to patient's intractable nausea and vomiting and ongoing problems with pancreatitis, the ED physician felt that patient should be transferred for a GI consult. Patient was transferred via squad to [facility] surgical unit for observation. We will consult Dr. Gama Martinez, GI, for recommendation. We will send patient for MRCP in the am. We will start LR @ 125cc/hr. Continue IV and PO pain medications and antiemetics. Start clear liquid diet. Repeat CBC, CMP and magnesium level in the am. Patient seen and evaluated on arrival to [facility]. She rates her pain as 10/10 but appears to be in no acute distress. No tenderness noted on palpation of the abdomen. Patient points to an area between the right upper and lower quadrant as being the area where she is having pain. Discussed plan of care with patient and she is agreeable to plan of care. All questions answered. Review of Systems Review of Systems: Reviewed in detail, including general health, HEENT, cardiovascular, respiratory, gastrointestinal, genitourinary, endocrine, musculoskeletal, neurologic, vascular, skin, and psychiatric. All are negative except for those listed in the History of Present Illness. Physical Exam Vitals and Measurements T: 36.6 C (Oral) HR: 56(Apical) RR: 16 BP: 140/78 SpO2: 96% HT: 155 cm WT: 92 kg BMI: 38.29 Weight Dosing Weight: 92 kg (03/15/23) General: No acute distress. Patient is alert and appropriate. Skin: No rash. Skin is warm, dry and intact. HEENT: Head is normocephalic, atraumatic. Pupils are equal, round and reactive. Neck: Supple. No lymphadenopathy, thyromegaly. Lungs: Bilaterally clear but diminished without crepitation or wheeze. Unlabored. Heart: Heart is regular rhythm, S1, S2. No murmurs, gallops or rubs. Abdomen: Abdomen is soft, nontender, obese. Bowels sounds present in all quadrants. Extremities: No clubbing, cyanosis, or edema. Peripheral pulses palpable. No calf tenderness. Neurological: Patient is awake and alert to person, place and time. Following simple commands, moving all extremities. Lab Results No 36 Hour Lab Data Assessment/Plan 1. Acute pancreatitis Acute on chronic, accompanied by worsening nausea and pain *Patient was just a [facility] and diagnosed with mild acute pancreatitis 02/25, discharged home on 02/28. Was doing well but pain and nausea returned a few days ago. *Consult placed to Dr. Martinez, GI, for recommendation. *Send patient for MRCP in the am. *Continue IV and PO pain medication and antiemetics. *Allow clear liquid diet as tolerated. *Repeat CBC, CMP, lipid profile and magnesium level in the am. 2. Hypercholesteremia Chronic *Hold statin for now. *Check lipid profile in am. 3. Anxiety Chronic *Continue current home medications. 4. Chronic lower back pain Chronic *Continue current home medications. 5. Tobacco use Chronic *Encourage cessation. *May have nicotine patch PRN. DVT prophylaxis with SCDs. Code status: Full Code. Labs, diagnostic test and progress notes reviewed as noted in HPI. Plan of care discussed with patient. All questions answered. Patient verbalizes understanding and is agreeable with plan of care. This case was discussed with collaborating physician, Dr. Ainsley Mckinney. 70 minutes spent reviewing chart from transferring hospital, past diagnostic tests, reviewing lab results, vital sign trends, medical history, reviewing medications and ordering home medications, notes from previous admission, examining patient, discussing plan of care, collaborating with physician, and documenting in chart. Problem List/Past Medical History Ongoing Anxiety Chronic lower back pain Hypercholesteremia Insomnia Kidney stones Wound of left breast Historical No qualifying data Procedure/Surgical History Abdominal hysterectomy Cholecystectomy Medications Home Medications (10) Active albuterol MDI (90 mcg/inh) CFC free inhalation aerosol 1 puff(s), PRN, Inhalation, q4h ARIPiprazole 10 mg oral tablet 10 mg = 1 tab(s), Oral, qDay atorvastatin 20 mg oral tablet 20 mg = 1 tab(s), Oral, qDay cholecalciferol 125 mcg (5000 intl units) oral capsule 125 mcg = 1 cap(s), Oral, qDay Dulera 200 mcg-5 mcg/inh Metered Dose Inhaler 2 puff(s), Inhalation, BID gabapentin 400 mg oral capsule 400 mg = 1 cap(s), Oral, TID Lexapro 10 mg oral tablet 10 mg = 1 tab(s), Oral, qDay montelukast 10 mg oral tablet 10 mg = 1 tab(s), Oral, qHS Protonix 40 mg oral enteric coated tablet 40 mg = 1 tab(s), Oral, qDay QUEtiapine 100 mg oral tablet 100 mg = 1 tab(s), Oral, qHS Allergies Advil Contrast dye Flagyl Motrin NSAIDS Toradol Toradol IV/IM Zofran aspirin penicillin Social History Smoking Status - 01/21/2017 Current every day smoker Alcohol - No Risk, 02/25/2020 Use: Past., 01/21/2020 Home/Environment Domestic Concerns: None. Living situation: Home/Independent. Safe place to go: Yes. Lives In: Apartment, 1st floor bedroom, 1st floor bathroom. Current Home Treatments None. Professional Skilled Services or Special Community Resources None. Financial concerns: No. Marital Status: Unmarried., 01/21/2020 Nutrition/Health Type of diet: Regular. Appetite Poor. Eating Difficulties No teeth., 01/21/2020 Substance Abuse - No Risk, 02/25/2020 Use: Never., 01/21/2020 Tobacco - High Risk, 02/25/2020 Nicotine Use: 10 or more cigarettes (1/2 pack or more)/day in last 30 days. Exposure to Tobacco Smoke Lives with someone who smokes. Type: Cigarettes. Number of years: 15. Smokeless Tobacco Use: Never., 01/21/2020 Family History Diabetes mellitus: Father. Diabetes mellitus type 2: Father. HTN - Hypertension: Mother. Heart disease: Mother. Immunizations No qualifying data available. Code Status Code Status - Ordered -- 03/15/23 12:27:00 EDT, Full Code, Constant Order Digitally Signed by PIERCE MARS on 03/15/2023 02:50 PM Digitally Signed by PIERCE MARS on 03/15/2023 02:52 PM [facility]06-30-2023 Miscellaneous Notes* Telephone Encounter - Merced Hutchinson APRN.CNP - 03/13/2023 10:56 AM EDT See separate phone encounter. [facility] History of Present illness Narrative* Merced Hutchinson APRN.CNP - 03/11/2023 2:04 PM EDT SUBJECTIVE Sally Vargas is a 42 year old female here today for a hospital discharge follow up. Chief Complaint Patient presents with: Hospital F/U HPI Sally Vargas is a 42 year old female established patient of Silverio Haley MD who presents for hospital discharge follow up. Discharged from [place] in [place], admitted on 02/20 and [id number]. Transferred from [place]. No outreach completed. Admitted for pancreatitis, low sodium (lab error?), migraines. Lipase was high. Has had 3 episodes of pancreatitis in the last few years. Doesnot drink alcohol, none in almost 3 years. Has a family history of pancreatitis and DM. Last [id number] 5.5%. Mild inflammatory changes to the pancrease on CT imaging. No gallbladder, removed in 1998. Triglycerides 3 weeks ago 179. Advised to see neuro for migraine follow up. [facility]eds to [facility] with[facility]. Just seen in for cough. Still having cough. Her medications were reviewed today and her list is now up to date. Medications Current Outpatient Medications Medication Sig methylPREDNISolone (MEDROL, JO,) 4 mg Dose-Pack Follow dosing instructions, take with food. blvnkl-eqzitwfe-delndea (CREON 3) 3,000-9,500- 15,000 unit delayed release capsule Take 1 capsule by mouth three times daily with meals. doxycycline monohydrate 100 mg tablet Take 1 tablet by mouth twice daily for 5 days. benzonatate (TESSALON PERLES) 100 mg capsule Take 1 capsule by mouth three times daily as needed for cough. atorvastatin (LIPITOR) 20 mg tablet Take 1 tablet by mouth daily at bedtime. For cholesterol. Cholecalciferol, Vitamin D3, 125 mcg (5,000 unit) cap Take 1 capsule by mouth once daily. montelukast (SINGULAIR) 10 mg tablet Take 1 tablet by mouth daily at bedtime. gabapentin (NEURONTIN) 800 mg tablet TAKE 1 TABLET BY MOUTH THREE TIMES A DAY albuterol HFA (VENTOLIN HFA) 90 mcg/actuation inhaler Inhale 2 Puffs as instructed every 4 hours asneeded for wheezing/shortness of breath. cyanocobalamin (VITAMIN B-12) 1,000 mcg tab Take 1 tablet by mouth once daily. QUEtiapine (SEROQUEL) 50 mg tablet Take 50 mg by mouth daily at bedtime. pantoprazole DR (PROTONIX) 40 mg tablet Take 1 tablet by mouth once daily. Take on empty stomach, 1/2 hr before meal. diphenhydrAMINE (BENADRYL) 25 mg capsule Take 50 mg by mouth at bedtime as needed. No current facility-administered medications for this visit. ALLERGIES Allergen Reactions Penicillins Rash Cephalexin Itching Chlorhexidine Rash Skin rash Toradol [Ketorolac] Rash Tramadol Rash Patient reports no allergy to Tramadol. Asa [Salicylates] Other: See Comments ulcers Contrast Dye [Iodin* Shortness of Breath Ibuprofen GI Upset Prednisone Other: See Comments makes agitated and mean ACTIVE PROBLEM LIST Pain of Multiple Sites - 04/11/2021 (Mild priority) Comment: No Narcotics from the Office: Patient has a long standing Hx of complaints of multiple areas of pain with negative work ups. Patient has gone to the ER multiple times for pain medication. Generalized Anxiety Disorder - 03/31/2016 (A priority) Comment: Seeing [facility]. 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 Migraine Without Aura - 05/17/2008 (A priority) Comment: Has used imitrex with good response; Impaired Fasting Glucose - 05/17/2008 (A priority) Comment: Sugar 104 fasting, 04/21 Adjustment Insomnia - 03/31/2016 (B priority) Allergic rhinitis, cause unspecified - 05/17/2008 (B priority) Comment: Spring and summer Ovarian Cyst - 07/15/2012 (C priority) Benign Liver Cyst - 05/24/2010 (C priority, Chronic) Comment: CT scan at [facility] 11/2009 and 04/2010 showe 4 mm increase in size. No pain. No elevated LFTs on 03/11/2010. Calculus of Kidney - 05/17/2008 (C priority) Comment: Sees Dr. Nicolas: Hospitalized age 20, and again later -- no procedures so far ([facility], [address] [facility]) Smoker - 05/17/2008 (C priority) Comment: Started age 26, 1/2 a PPD Family history of diabetes mellitus - 05/17/2008 (F priority) Comment: Mostly on dad's side Bilateral Low Back Pain Without Sciatica - 06/18/2016 (M priority) Comment: Seeing pain management Obesity, Class II, Bmi 35-39.9 - 02/16/2023 Open Wound of Left Breast - 01/19/2023 Former Smoker - 06/26/2022 Covid-19 Virus Infection - 10/07/2021 Comment: 09/2021 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 Hydroureter, Left - 03/30/2017 Right Facial Numbness - 02/23/2017 Right Upper Extremity Numbness - 02/23/2017 Numbness of Right Lower Extremity - 02/23/2017 Weakness of Right Upper Extremity - 02/23/2017 Weakness of Right Lower Extremity - 02/23/2017 Vision Blurred - 02/23/2017 Lumbar Spine Pain - 02/23/2017 Cervical Spine Pain - 02/23/2017 Abnormal Mri, Lumbar Spine - 02/23/2017 Hydronephrosis of Left Kidney - 02/05/2017 Hydroureter On Left - 02/05/2017 Pain in Left Hip - 06/18/2016 Greater Trochanteric Bursitis - 06/18/2016 Social History Tobacco Use Smoking status: Every Day Packs/day: 0.50 Years: 3.00 Pack years: 1.50 Types: Cigarettes Last attempt to quit: 01/12/2017 Years since quittin.1 Smokeless tobacco: Never Tobacco comments: Approx. 3 cigarettes daily-1 pack every week Vaping Use Vaping Use: Never used Substance Use Topics Alcohol use: Yes Comment: Occasional Drug use: Never Review of Systems Respiratory: Negative. Cardiovascular: Negative. Gastrointestinal: Positive for abdominal pain (off and on). OBJECTIVE BP 138/78 Pulse 93 Temp (Src) 97 (Tympanic) Wt 206 lb 12.8 oz (93.8kg) SpO2 97% LMP 08/10/2006 Physical Exam Vitals and nursing note reviewed. Constitutional: General: She is awake. She is not in acute distress. Appearance: Normal appearance. She is well-developed and well-groomed. She is not ill-appearing, toxic-appearing or diaphoretic. HENT: Head: Normocephalic. Right Ear: External ear normal. Left Ear: External ear normal. Nose: Nose normal. Eyes: General: Vision grossly intact. Conjunctiva/sclera: Conjunctivae normal. Pupils: Pupils are equal, round, and reactive to light. Neck: Vascular: No JVD. Trachea: Trachea normal. Cardiovascular: Rate and Rhythm: Normal rate and regular rhythm. Pulses: Normal pulses. Heart sounds: Normal heart sounds. No murmur heard. Pulmonary: Effort: Pulmonary effort is normal. No accessory muscle usage, prolonged expiration or respiratory distress. Breath sounds: Normal breath sounds. Musculoskeletal: Cervical back: Neck supple. Skin: General: Skin is warm and dry. Capillary Refill: Capillary refill takes less than 2 seconds. Neurological: General: No focal deficit present. Mental Status: She is alert and oriented to person, place, and time. Mental status is at baseline. Psychiatric: Attention and Perception: Attention and perception normal. Mood and Affect: Mood and affect normal. Speech: Speech normal. Behavior: Behavior normal. Behavior is cooperative. Thought Content: Thought content normal. Cognition and Memory: Cognition and memory normal. Judgment: Judgment normal. ASSESSMENT/PLAN: 1. Acute pancreatitis without infection or necrosis, unspecified pancreatitis type - ICD9: 577.0, ICD10: K85.90 (primary diagnosis) She has concerns of reoccurring pancreatitis and associated pain. Repeat labs today, can repeat pancrease imagining. Can send in for Creon for when having episodes of pancreatic type pain. Consider referral to GI if worsening/persistent. - CBC + DIFF - COMP METABOLIC PANEL - AMYLASE BLD - LIPASE BLD - US ABD RIGHT UPPER QUADRANT - LIPASE 3,000-PROTEASE 9,500-AMYLASE 15,000 UNIT CAPSULE, DELAYED REL 2. Low sodium levels - ICD9: 276.1, ICD10: E87.1 Suspected lab error, normal on repeat testing. 3. Migraine without aura and without status migrainosus, not intractable - ICD9: 346.10, ICD10: G43.009 Follow up with neuro. 4. Acute cough - ICD9: 786.2, ICD10: R05.1 - METHYLPREDNISOLONE 4 MG TABLETS IN A DOSE PACK Portions of this note have been entered by ancillary staff. I have reviewed and when necessary edited, so that they are an adequate record of my encounter with this patient Please note that parts of this document were created using voice recognition software and therefore may contain grammatical errors. Patient verbalizes understanding of instructions from today's visit and in agreement with treatmentplan. Questions answered. Agrees to call the office if questions, concerns of issues with acute symptoms not improving or if they worsen. See diagnoses and orders for additional plan(s). Allergies and medications were reviewed, list was updated, and refills given if needed. Past medical, surgical, social, and family history reviewed and updated as appropriate. Encouraged proper diet & exercise as well as compliance with taking medications. Age- appropriate health preventative measures were discussed. Return in about 6 weeks (around 04/22/2023) for recheck. COCO Mclean [facility] History of Present illness Narrative* Kylee Davenport RT(Fransisco) - 03/09/2023 5:50 PM EDT Radiology Service Progress Note PATIENT NAME: Sally Vargas DATE OF SERVICE: March 09, 2023 TIME: 5:45 PM PATIENT IDENTITY VERIFICATION COMPLETED USING TWO (2) IDENTIFIERS: Name and Date of confirmedby patient verbally. FALL SCREENING: Has the patient had 2 falls in the last year or 1 fall with injury or currently using an Ambulatory Assistive Device (Walker, Cane, Wheelchair, Crutches, etc.)? No PATIENT GENDER DATA: Female. status: : No status: NO. PATIENT RELEVANT IMPLANT DATA REVIEWED: Yes RADIOLOGY DEPARTMENT: General X-ray: Exam(s) Completed: Chest X-Ray PERIPHERAL IV DATA: Not applicable SIGNED BY: RT Olivier(Fransisco) March 09, 2023 5:45 PM documented in this encounterKn[facility]06-[facility] History of Present illness Narrative* CHAZ Combs - 03/09/2023 5:45 PM EDT This note was created using NoteWriter. Subjective Sally Vargas is a 42 year old female. HPI 42-year-old female presents for cough, congestion x5 days. Patient states that she started getting some nasal congestion and sneezing about 5 days ago. She thought was just her allergies. She uses Zyrtec and Singulair. She states over the weekend she started getting a cough. She feels like she is wheezing more than normal. States she has been diagnosed with asthmatic bronchitis recently andis on an inhaler 4 times daily. She is a smoker. She denies any chest pain or shortness of breath. She denies any vomiting or diarrhea. No abdominal pain. She did do a home COVID test that was negative. She does report she was hospitalized earlier this month for pancreatitis and is unsure if she caught something when she was in the hospital or not. She states she is doing well from that aspect, no abdominal pain, vomiting or other symptoms. She has had some low-grade fevers at home since her cough started. She reports scratchy throat with coughing, otherwise no sore throat. She took Tylenol today. PAST MEDICAL HISTORY Diagnosis Date Allergic rhinitis, cause unspecified 05/17/2008 Spring and summer Benign liver cyst 05/24/2010 CT scan at [facility] 11/2009 and 04/2010 showe 4 mm increase in size. No pain. No elevated LFTs on 03/11/2010. Calculus of kidney 05/17/[address] Nicolas: Hospitalized age 20, and again later -- no procedures so far ([facility], [address] [facility]) Cancer (HCC) COVID-19 virus infection 10/07/202109/2021 Diverticulosis Dysmenorrhea Hemorrhoids History of blood transfusion Impaired fasting glucose 05/17/2008 Sugar 104 fasting, 04/21 Marijuana use 07/10/2020 ER visit 07/06/2020, [place] MIGRAINE 05/17/2008 Has used imitrex with good response; Keeps Vicodin on hand when needed; Ovarian cyst 07/15/2012 Pancreatitis Smoker 05/17/2008 Started age 26, 1/2 a PPD 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, mild esophagitis, 2 cm hiatal hernia EGD W/O BRSH SPEC VARICIES INJ 05/28/2020 LIG/TRNSXJ FLP TUBE ABDL/VAG APPR UNI/BI OOPHORECTOMY PARTIAL/TOTAL UNI/BI 2009 Oophorectomy right, still has left OOPHORECTOMY PARTIAL/TOTAL UNI/BI 01/2015 left removed PAST SURGICAL HISTORY OF uterine ablation PAST SURGICAL HISTORY OF cyst removal TOTAL ABDOMINAL HYSTERECT W/WO RMVL TUBE OVARY 08/31/2006 Hysterectomy, [facility]HELINE ALLERGIES Penicillins, Cephalexin, Chlorhexidine, Toradol [Ketorolac], Tramadol, Asa [Salicylates],Contrast Dye [Iodine], Ibuprofen, and Prednisone MEDICATIONS atorvastatin (LIPITOR) 20 mg tablet Take 1 tablet by mouth daily at bedtime. For cholesterol. Cholecalciferol, Vitamin D3, 125 mcg (5,000 unit) cap Take 1 capsule by mouth once daily. montelukast (SINGULAIR) 10 mg tablet Take 1 tablet by mouth daily at bedtime. gabapentin (NEURONTIN) 800 mg tablet TAKE 1 TABLET BY MOUTH THREE TIMES A DAY albuterol HFA (VENTOLIN HFA) 90 mcg/actuation inhaler Inhale 2 Puffs as instructed every 4 hours asneeded for wheezing/shortness of breath. cyanocobalamin (VITAMIN B-12) 1,000 mcg tab Take 1 tablet by mouth once daily. QUEtiapine (SEROQUEL) 50 mg tablet Take 50 mg by mouth daily at bedtime. pantoprazole DR (PROTONIX) 40 mg tablet Take 1 tablet by mouth once daily. Take on empty stomach, 1/2 hr before meal. diphenhydrAMINE (BENADRYL) 25 mg capsule Take 50 mg by mouth at bedtime as needed. FAMILY HISTORY Problem Relation Age of Onset Thyroid Mother unsure of details Arthritis Mother fibromyalgia Blood Disease Mother blood clots, unsure of details (aorta?) No Known Problems Father No Known Problems Sister No Known Problems Sister No Known Problems Brother Diabetes Maternal Grandmother Diabetes Maternal Grandfather Lipids Maternal Grandfather Stroke Maternal Grandfather Coronary Artery Disease Maternal Grandfather Cataract Maternal Grandfather Pancreatic Cancer Maternal Grandfather Diabetes Paternal Grandmother Diabetes Paternal Grandfather Coronary Artery Disease Paternal Grandfather No Known Problems Son No Known Problems Son Breast Cancer Maternal Aunt Lipids Maternal Uncle Coronary Artery Disease Maternal Uncle other (ovarian ca) Other maternal cousin Colon Cancer No Family History Social History Tobacco Use Smoking status: Every Day Packs/day: 0.50 Years: 3.00 Pack years: 1.50 Types: Cigarettes Last attempt to quit: 01/12/2017 Years since quittin.1 Smokeless tobacco: Never Tobacco comments: Approx. 3 cigarettes daily-1 pack every week Vaping Use Vaping Use: Never used Substance Use Topics Alcohol use: Yes Comment: Occasional Drug use: Never Review of Systems Constitutional: Positive for chills and fever. HENT: Positive for congestion. Negative for ear pain and sore throat. Respiratory: Positive for cough and wheezing. Negative for shortness of breath. Cardiovascular: Negative for chest pain. Gastrointestinal: Negative for diarrhea and vomiting. Objective BP 158/80 Pulse 104 Temp 37.3 C (99.2 F) Resp 20 Wt 94.3 kg (207 lb 12.8 oz) LMP 08/10/2006 SpO2 96% BMI 38.73 kg/m Physical Exam Vitals and nursing note reviewed. Constitutional: General: She is not in acute distress. Appearance: Normal appearance. She is not toxic-appearing. HENT: Right Ear: Tympanic membrane and ear canal normal. Left Ear: Tympanic membrane and ear canal normal. Nose: Nose normal. Mouth/Throat: Mouth: Mucous membranes are moist. Pharynx: No oropharyngeal exudate or posterior oropharyngeal erythema. Eyes: Conjunctiva/sclera: Conjunctivae normal. Cardiovascular: Rate and Rhythm: Normal rate and regular rhythm. Pulmonary: Effort: Pulmonary effort is normal. Breath sounds: Wheezing present. Neurological: Mental Status: She is alert. Assessment and Plan ASSESSMENT/PLAN: 1. Acute cough - ICD9: 786.2, ICD10: R05.1 (primary diagnosis) - XR CHEST 2V FRONTAL/LAT -No acute findings. -Did home COVID test that was negative. Declines test here. 2. Sinobronchitis - ICD9: 473.9, 490, ICD10: J32.9, J40 -Rx for doxycycline. -Possible component of COPD/exacerbation? Patient is a smoker. On inhalers -Discussed prednisone, but patient states she has side effects from this. -Continue inhalers at home. Diagnosis and treatment plan were discussed and questions were answered to the patient's satisfaction. Pt acknowledged understanding of concepts and follow up plan. Specific signs and symptoms that would indicate the need for higher level of care were discussed in detail warranting prompt ER evaluation. CHAZ Combs [facility] NoteHNO ID: [id number] Author: Mala Almendarez MD Service: ? Author Type: Physician Type: Progress Notes Filed: 02/17/2023 9:18 AM Note Text: VIRTUAL VISIT PROGRESS NOTE This is a virtual visit using Audio only. It required patient-provider interaction for the medical decision making as documented below. I have communicated my name and active licensure. The patient's identity and physical location were verified at the time of this visit. Either the patient or their legal client care representative has been informed of the risks and benefits of -- and alternatives to -- treatment through a remote evaluation and consents to proceed with the evaluation remotely. Sally Vargas is a 42 year old female seen for liver cyst. She recent was in the emergency room. She is having right-sided and right-sided back pain. She denies any epigastric pain. She still has her chronic abdominal pain on the right-hand side. She has not followed up with GI.. HISTORY REVIEWED (electronic chart updated): PAST MEDICAL HISTORY Diagnosis Date Allergic rhinitis, cause unspecified 05/17/2008 Spring and summer Benign liver cyst 05/24/2010 CT scan at [facility] 11/2009 and 04/2010 showe 4 mm increase in size. No pain. No elevated LFTs on 03/11/2010. Calculus of kidney 05/17/[address] Nicolas: Hospitalized age 20, and again later -- no procedures so far ([facility], [facility], [address] [facility]) Cancer (HCC) COVID-19 virus infection 10/07/202109/2021 Diverticulosis Dysmenorrhea Hemorrhoids History of blood transfusion Impaired fasting glucose 05/17/2008 Sugar 104 fasting, 04/21 Marijuana use 07/10/2020 ER visit 07/06/2020, [place] MIGRAINE 05/17/2008 Has used imitrex with good response; Keeps Vicodin on hand when needed; Ovarian cyst 07/15/2012 Pancreatitis Smoker 05/17/2008 Started age 26, 1/2 a PPD PAST SURGICAL HISTORY Procedure Laterality Date CHOLECYSTECTOMY HX COLONOSCOPY 05/08/2020 poor prep, stool in entire colon, int hemorrhoids, diverticulosis DILATION AND CURETTAGE DXAND/THER NONOBSTETRIC 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, mild esophagitis, 2 cm hiatal hernia EGD W/O BRSH SPEC VARICIES INJ 05/28/2020 LIG/TRNSXJ FLP TUBE ABDL/VAG APPR UNI/BI OOPHORECTOMY PARTIAL/TOTAL UNI/BI 2009 Oophorectomy right, still has left OOPHORECTOMY PARTIAL/TOTAL UNI/BI 01/2015 left removed PAST SURGICAL HISTORY OF uterine ablation PAST SURGICAL HISTORY OF cyst removal TOTAL ABDOMINAL HYSTERECT W/WO RMVL TUBE OVARY 08/31/2006 Hysterectomy, [place] FAMILY HISTORY Problem Relation Age of Onset Thyroid Mother unsure of details Arthritis Mother fibromyalgia Blood Disease Mother blood clots, unsure of details (aorta?) No Known Problems Father No Known Problems Sister No Known Problems Sister No Known Problems Brother Diabetes Maternal Grandmother Diabetes Maternal Grandfather Lipids Maternal Grandfather Stroke Maternal Grandfather Coronary Artery Disease Maternal Grandfather Cataract Maternal Grandfather Pancreatic Cancer Maternal Grandfather Diabetes Paternal Grandmother Diabetes Paternal Grandfather Coronary Artery Disease Paternal Grandfather No Known Problems Son No Known Problems Son Breast Cancer Maternal Aunt Lipids Maternal Uncle Coronary Artery Disease Maternal Uncle other (ovarian ca) Other maternal cousin Colon Cancer No Family History Social History Tobacco Use Smoking status: Every Day Packs/day: 0.50 Years: 3.00 Pack years: 1.50 Types: Cigarettes Last attempt to quit: 01/12/2017 Years since quittin.1 Smokeless tobacco: Never Tobacco comments: Approx. 3 cigarettes daily-1 pack every week Vaping Use Vaping Use: Never used Substance Use Topics Alcohol use: Yes Comment: Occasional Drug use: Never Current Outpatient Medications Medication Sig montelukast (SINGULAIR) 10 mg tablet Take 1 tablet by mouth daily at bedtime. gabapentin (NEURONTIN) 800 mg tablet TAKE 1 TABLET BY MOUTH THREE TIMES A DAY albuterol HFA (VENTOLIN HFA) 90 mcg/actuation inhaler Inhale 2 Puffs as instructed every 4 hours as needed for wheezing/shortness of breath. cholecalciferol, Vitamin D3, (VITAMIN D3) 1,250 mcg (50,000 unit) cap capsule Take 1 capsule by mouth one time a week. cyanocobalamin (VITAMIN B-12) 1,000 mcg tab Take 1 tablet by mouth once daily. atorvastatin (LIPITOR) 10 mg tablet Take 1 tablet by mouth daily at bedtime. For cholesterol. QUEtiapine (SEROQUEL) 50 mg tablet Take 50 mg by mouth daily at bedtime. pantoprazole DR (PROTONIX) 40 mg tablet Take 1 tablet by mouth once daily. Take on empty stomach, 1/2 hr before meal. diphenhydrAMINE (BENADRYL) 25 mg capsule Take 50 mg by mouth at bedtime as needed. No current facility-administered medications for this visit. ALLERGIES Allergen Reactions Penicillins Rash Cephalexin Itching Chlorhexidine Rash Skin rash Toradol [Ketorolac] Rash Tramadol Rash Patient reports no allergy (more content not included)...[facility]06-06-2023 History of Present illness Narrative* Mala Almendarez MD - 02/17/2023 9:16 AM EDT VIRTUAL VISIT PROGRESS NOTE This is a virtual visit using Audio only. It required patient-provider interaction for the medical decision making as documented below. I have communicated my name and active licensure. The patient's identity and physical location wereverified at the time of this visit. Either the patient or their legal client care representative has been informed of the risks and benefits of -- and alternatives to -- treatment through a remote evaluation andconsents to proceed with the evaluation remotely. Sally Vargas is a 42 year old female seen for liver cyst. She recent was in the emergency room. She is having right-sided and right-sided back pain. She denies any epigastric pain. She still hasher chronic abdominal pain on the right-hand side. She has not followed up with GI.. HISTORY REVIEWED (electronic chart updated): PAST MEDICAL HISTORY Diagnosis Date Allergic rhinitis, cause unspecified 05/17/2008 Spring and summer Benign liver cyst 05/24/2010 CT scan at [facility] 11/2009 and 04/2010 showe 4 mm increase in size. No pain. No elevated LFTs on 03/11/2010. Calculus of kidney 05/17/[address] Nicolas: Hospitalized age 20, and again later -- no procedures so far ([facility], [address] [facility]) Cancer (HCC) COVID-19 virus infection 10/07/202109/2021 Diverticulosis Dysmenorrhea Hemorrhoids History of blood transfusion Impaired fasting glucose 05/17/2008 Sugar 104 fasting, 04/21 Marijuana use 07/10/2020 ER visit 07/06/2020, [place] MIGRAINE 05/17/2008 Has used imitrex with good response; Keeps Vicodin on hand when needed; Ovarian cyst 07/15/2012 Pancreatitis Smoker 05/17/2008 Started age 26, 1/2 a PPD 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, mild esophagitis, 2 cm hiatal hernia EGD W/O BRSH SPEC VARICIES INJ 05/28/2020 LIG/TRNSXJ FLP TUBE ABDL/VAG APPR UNI/BI OOPHORECTOMY PARTIAL/TOTAL UNI/BI 2009 Oophorectomy right, still has left OOPHORECTOMY PARTIAL/TOTAL UNI/BI 01/2015 left removed PAST SURGICAL HISTORY OF uterine ablation PAST SURGICAL HISTORY OF cyst removal TOTAL ABDOMINAL HYSTERECT W/WO RMVL TUBE OVARY 08/31/2006 Hysterectomy, [place] FAMILY HISTORY Problem Relation Age of Onset Thyroid Mother unsure of details Arthritis Mother fibromyalgia Blood Disease Mother blood clots, unsure of details (aorta?) No Known Problems Father No Known Problems Sister No Known Problems Sister No Known Problems Brother Diabetes Maternal Grandmother Diabetes Maternal Grandfather Lipids Maternal Grandfather Stroke Maternal Grandfather Coronary Artery Disease Maternal Grandfather Cataract Maternal Grandfather Pancreatic Cancer Maternal Grandfather Diabetes Paternal Grandmother Diabetes Paternal Grandfather Coronary Artery Disease Paternal Grandfather No Known Problems Son No Known Problems Son Breast Cancer Maternal Aunt Lipids Maternal Uncle Coronary Artery Disease Maternal Uncle other (ovarian ca) Other maternal cousin Colon Cancer No Family History Social History Tobacco Use Smoking status: Every Day Packs/day: 0.50 Years: 3.00 Pack years: 1.50 Types: Cigarettes Last attempt to quit: 01/12/2017 Years since quittin.1 Smokeless tobacco: Never Tobacco comments: Approx. 3 cigarettes daily-1 pack every week Vaping Use Vaping Use: Never used Substance Use Topics Alcohol use: Yes Comment: Occasional Drug use: Never Current Outpatient Medications Medication Sig montelukast (SINGULAIR) 10 mg tablet Take 1 tablet by mouth daily at bedtime. gabapentin (NEURONTIN) 800 mg tablet TAKE 1 TABLET BY MOUTH THREE TIMES A DAY albuterol HFA (VENTOLIN HFA) 90 mcg/actuation inhaler Inhale 2 Puffs as instructed every 4 hours asneeded for wheezing/shortness of breath. cholecalciferol, Vitamin D3, (VITAMIN D3) 1,250 mcg (50,000 unit) cap capsule Take 1 capsule by mouth one time a week. cyanocobalamin (VITAMIN B-12) 1,000 mcg tab Take 1 tablet by mouth once daily. atorvastatin (LIPITOR) 10 mg tablet Take 1 tablet by mouth daily at bedtime. For cholesterol. QUEtiapine (SEROQUEL) 50 mg tablet Take 50 mg by mouth daily at bedtime. pantoprazole DR (PROTONIX) 40 mg tablet Take 1 tablet by mouth once daily. Take on empty stomach, 1/2 hr before meal. diphenhydrAMINE (BENADRYL) 25 mg capsule Take 50 mg by mouth at bedtime as needed. No current facility-administered medications for this visit. ALLERGIES Allergen Reactions Penicillins Rash Cephalexin Itching Chlorhexidine Rash Skin rash Toradol [Ketorolac] Rash Tramadol Rash Patient reports no allergy to Tramadol. Asa [Salicylates] Other: See Comments ulcers Contrast Dye [Iodin* Shortness of Breath Ibuprofen GI Upset Prednisone Other: See Comments makes agitated and mean REVIEW OF SYSTEMS: GENERAL: feeling well without fatigue, no recent change in weight GI: Right-sided abdominal pain PHYSICAL EXAMINATION: VIDEO EXAM: (if completed, performed via video enabled technology) No exam performed ASSESSMENT: (K76.89) Liver cyst (primary encounter diagnosis) PLAN: I reviewed her CT scan from December. This shows a slight increase in the left- sided liver cyst. Thereis no evidence of any recurrent cyst on the right-hand side. Had a long discussion with her and told her that since her cyst is in the epigastric region and her pain is on the right side there is no indication for any treatment for her liver cyst. I structured to follow-up with her primary care physician as well as GI for her pain. She does not need any further follow- up in our office. There are no Patient Instructions on file for this visit. It was necessary to convert the virtual visit to a telephone encounter due to technical difficulties. Mala Almendarez MD documented [facility] Instructions* Patient Instructions* Merced Hutchinson APRN.CNP - 02/16/2023 8:49 AM EDT Try and drink 3 bottles of water per day. Keep trying to cut back on smoking. Get labs today. Wound Center with [facility] for the left breast wound. PT for vestibular therapy. documented [facility] History of Present illness Narrative* Merced Hutchinson APRN.CNP - 02/16/2023 8:38 AM EDT SUBJECTIVE Sally Vargas is a 42 year old female here today for a check up on her medical problems. Chief Complaint Patient presents with: Establish [facility] ER F/U: had 3 visits to the ER last week due to passing out. Wound Check: left breast on going for several months HPI Sally Vargas is a 42 year old female established patient of our practice, switching PCP withinthe practice. Presents today with concerns of an ER follow up. , a week ago, went in toER for passing out. Went to [place]. The next night she was outside, got lightheaded/dizzy, and passed out again, taken to [facility] by [facility]. Then the following day felt dizzy again, called robyn and went back to [facility] and advised to follow up with PCP. Prior history of vertigo. Dizziness is worsened with turning her head to the right. Was hospitalized a year ago or so for concerns of passing out. [place] heart monitor, no clear cause identified. She is drinking fluids. Drinking water, a bottle of water a day (thinks around 8 ounces daily). Sleeping about 2-3 hours a night. Issues with insomnia, some trouble falling asleep and trouble staying asleep. Psychiatrist through the counseling center managing mental health/insomnia meds. Smokes about a half a pack per day. Trying to cut back. No cough associated, no chest pain, chest tightness or shortness of breath. Gets headache and nausea. She was seeing a neurologist for her migraines with [facility] (last seen about a year ago). Had EKG in [facility]. Stresstest on treadmill in 2020, suboptimal test, no issues seen on what was completed. No swelling in feet or legs. No blurred vision or double vision, does need readers. Also having issues with an open sore on the left breast. Was referred to wound center but did not follow up. No drug/substance use. Her medications were reviewed today and her list is now up to date. Medications Current Outpatient Medications Medication Sig montelukast (SINGULAIR) 10 mg tablet Take 1 tablet by mouth daily at bedtime. gabapentin (NEURONTIN) 800 mg tablet TAKE 1 TABLET BY MOUTH THREE TIMES A DAY albuterol HFA (VENTOLIN HFA) 90 mcg/actuation inhaler Inhale 2 Puffs as instructed every 4 hours asneeded for wheezing/shortness of breath. cholecalciferol, Vitamin D3, (VITAMIN D3) 1,250 mcg (50,000 unit) cap capsule Take 1 capsule by mouth one time a week. cyanocobalamin (VITAMIN B-12) 1,000 mcg tab Take 1 tablet by mouth once daily. atorvastatin (LIPITOR) 10 mg tablet Take 1 tablet by mouth daily at bedtime. For cholesterol. QUEtiapine (SEROQUEL) 50 mg tablet Take 50 mg by mouth daily at bedtime. pantoprazole DR (PROTONIX) 40 mg tablet Take 1 tablet by mouth once daily. Take on empty stomach, 1/2 hr before meal. diphenhydrAMINE (BENADRYL) 25 mg capsule Take 50 mg by mouth at bedtime as needed. No current facility-administered medications for this visit. ALLERGIES Allergen Reactions Penicillins Rash Cephalexin Itching Chlorhexidine Rash Skin rash Toradol [Ketorolac] Rash Tramadol Rash Patient reports no allergy to Tramadol. Asa [Salicylates] Other: See Comments ulcers Contrast Dye [Iodin* Shortness of Breath Ibuprofen GI Upset Prednisone Other: See Comments makes agitated and mean ACTIVE PROBLEM LIST Pain of Multiple Sites - 04/11/2021 (Mild priority) Comment: No Narcotics from the Office: Patient has a long standing Hx of complaints of multiple areas of pain with negative work ups. Patient has gone to the ER multiple times for pain medication. Generalized Anxiety Disorder - 03/31/2016 (A priority) Comment: Seeing [facility]. 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 Migraine Without Aura - 05/17/2008 (A priority) Comment: Has used imitrex with good response; Impaired Fasting Glucose - 05/17/2008 (A priority) Comment: Sugar 104 fasting, 04/21 Adjustment Insomnia - 03/31/2016 (B priority) Allergic rhinitis, cause unspecified - 05/17/2008 (B priority) Comment: Spring and summer Ovarian Cyst - 07/15/2012 (C priority) Benign Liver Cyst - 05/24/2010 (C priority, Chronic) Comment: CT scan at [facility] 11/2009 and 04/2010 showe 4 mm increase in size. No pain. No elevated LFTs on 03/11/2010. Calculus of Kidney - 05/17/2008 (C priority) Comment: Sees Dr. Nicolas: Hospitalized age 20, and again later -- no procedures so far ([facility], [address] [facility]) Smoker - 05/17/2008 (C priority) Comment: Started age 26, 1/2 a PPD Family history of diabetes mellitus - 05/17/2008 (F priority) Comment: Mostly on dad's side Bilateral Low Back Pain Without Sciatica - 06/18/2016 (M priority) Comment: Seeing pain management Obesity, Class II, Bmi 35-39.9 - 02/16/2023 Open Wound of Left Breast - 01/19/2023 Former Smoker - 06/26/2022 Covid-19 Virus Infection - 10/07/2021 Comment: 09/2021 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 Hydroureter, Left - 03/30/2017 Right Facial Numbness - 02/23/2017 Right Upper Extremity Numbness - 02/23/2017 Numbness of Right Lower Extremity - 02/23/2017 Weakness of Right Upper Extremity - 02/23/2017 Weakness of Right Lower Extremity - 02/23/2017 Vision Blurred - 02/23/2017 Lumbar Spine Pain - 02/23/2017 Cervical Spine Pain - 02/23/2017 Abnormal Mri, Lumbar Spine - 02/23/2017 Hydronephrosis of Left Kidney - 02/05/2017 Hydroureter On Left - 02/05/2017 Pain in Left Hip - 06/18/2016 Greater Trochanteric Bursitis - 06/18/2016 Social History Tobacco Use Smoking status: Every Day Packs/day: 0.50 Years: 3.00 Pack years: 1.50 Types: Cigarettes Last attempt to quit: 01/12/2017 Years since quittin.0 Smokeless tobacco: Never Tobacco comments: Approx. 3 cigarettes daily-1 pack every week Vaping Use Vaping Use: Never used Substance Use Topics Alcohol use: Yes Comment: Occasional Drug use: Never Review of Systems Constitutional: Negative. Respiratory: Negative. Cardiovascular: Negative. Neurological: Positive for dizziness, syncope, light-headedness and headaches. Negative for tremors, seizures, facial asymmetry, speech difficulty, weakness and numbness. OBJECTIVE BP 118/84 Pulse 80 Wt 210 lb (95.3kg) SpO2 98% LMP 08/10/2006 Physical Exam Vitals and nursing note reviewed. Constitutional: General: She is awake. She is not in acute distress. Appearance: Normal appearance. She is well-developed and well-groomed. She is not ill-appearing, toxic-appearing or diaphoretic. HENT: Head: Normocephalic. Right Ear: External ear normal. Left Ear: External ear normal. Nose: Nose normal. Eyes: General: Vision grossly intact. Gaze aligned appropriately. No visual field deficit. Extraocular Movements: Extraocular movements intact. Conjunctiva/sclera: Conjunctivae normal. Pupils: Pupils are equal, round, and reactive to light. Visual Xiong: Right eye visual xiong normal and left eye visual xiong normal. Neck: Vascular: No JVD. Trachea: Trachea normal. Cardiovascular: Rate and Rhythm: Normal rate and regular rhythm. Pulses: Normal pulses. Heart sounds: Normal heart sounds. No murmur heard. Pulmonary: Effort: Pulmonary effort is normal. No accessory muscle usage, prolonged expiration or respiratory distress. Breath sounds: Normal breath sounds. Musculoskeletal: Cervical back: Neck supple. Skin: General: Skin is warm and dry. Capillary Refill: Capillary refill takes less than 2 seconds. Neurological: General: No focal deficit present. Mental Status: She is alert and oriented to person, place, and time. Mental status is at baseline. Cranial Nerves: Cranial nerves 2-12 are intact. No cranial nerve deficit, dysarthria or facial asymmetry. Sensory: Sensation is intact. Motor: Motor function is intact. Coordination: Coordination is intact. Gait: Gait is intact. Psychiatric: Attention and Perception: Attention and perception normal. Mood and Affect: Mood and affect normal. Speech: Speech normal. Behavior: Behavior normal. Behavior is cooperative. Thought Content: Thought content normal. Cognition and Memory: Cognition and memory normal. Judgment: Judgment normal. ASSESSMENT/PLAN: 1. Syncope, unspecified syncope type - ICD9: 780.2, ICD10: R55 (primary diagnosis) Unclear etiology. We did get her most recent CT from 02/09 and this had no significant findings. Neuro exam is without red flags. WE will check labs for any metabolic issues. Other differentials include the syncope being secondary to her vertigo or migraines, we will refer to vestibular therapy forthe vertigo and see if that is helpful and may need follow up with neuro for migraine management, other neuro pathology could be a neuro anatomy issue and MRI may be needed, dehydration is also a possibility so we discussed adequate fluid intake, insomnia may also be contributing and she is workingwith her mental health provider on that. If symptoms persistent may also need to pursue a cardiac work up. - IRON + TIBC - TSH BLD 2. Vertigo - ICD9: 780.4, ICD10: R42 See above. - CONSULT TO PHYSICAL THERAPY 3. Open wound - ICD9: 879.8, ICD10: T14.8XXA Refer to wound center with [facility], discussed care of the area until seen with wounds. - CONSULT TO SKIN CARE TEAM 4. Vitamin D deficiency - ICD9: 268.9, ICD10: E55.9 - VITAMIN D 25 HYDROXY 5. Vitamin B12 deficiency - ICD9: 266.2, ICD10: E53.8 - VITAMIN B12 BLOOD 6. Hyperlipidemia, unspecified hyperlipidemia type - ICD9: 272.4, ICD10: E78.5 - LIPID PANEL BASIC 7. Adjustment insomnia - ICD9: 307.41, ICD10: F51.02 8. Migraine without aura and without status migrainosus, not intractable - ICD9: 346.10, ICD10: G43.009 9. Obesity, Class II, BMI 35-39.9 - ICD9: 278.00, ICD10: E66.9 - HGB A1C 10. Screening for HIV (human immunodeficiency virus) - ICD9: V73.89, ICD10: Z11.4 - HIV 1 2 COMBO(AG/AB),WITH REFLEX TO DIFFERENTIATION 11. Special screening examination for viral disease - ICD9: V73.99, ICD10: Z11.59 - HEP C AB IA W/CONF SCRN 12. Encounter for therapeutic drug monitoring - ICD9: V58.83, ICD10: Z51.81 - CBC + DIFF - COMP METABOLIC PANEL - VITAMIN D 25 HYDROXY - HGB A1C - MAGNESIUM BLD - VITAMIN B12 BLOOD Portions of this note have been entered by ancillary staff. I have reviewed and when necessary edited, so that they are an adequate record of my encounter with this patient Please note that parts of this document were created using voice recognition software and therefore may contain grammatical errors. Patient verbalizes understanding of instructions from today's visit and in agreement with treatmentplan. Questions answered. Agrees to call the office if questions, concerns of issues with acute symptoms not improving or if they worsen. Return in about 4 weeks (around 03/16/2023) for Follow up on chronic conditions and medications.. Merced Hutchinson APRN-MANUELITO [facility] Rosa [facility] February 10, 2023 6:16pm Note Date/Time February 10, 2023 3:46p m [facility] Medical Records Department [address] [place] [address] Emergency Department Summary 02/10/23 MR#: [id number] Acct: [id number] Name: SALLY VARGAS Rep #:[id number] : 1980 42 From: Marcelino Rosa DO PCP: CHAZ Bowser Status:REG E R Location: ED HPI History of Present Illness Chief Complaint: Weakness Narrative Narrative: Patient is a 42-year-old female who is presenting to the ER today with chief complaint of diffuse pain. Patient has mild headache, mild neck pain, soreness and stiffness. Patient stated that she had a syncopal episode last evening, shefell face forward against the cement. Patient was seen evaluated last evening. Patient had a CT of the head, cervical spine. Patient had multiple x-rays done as well. Patient was sent home with no medications to help with her symptoms athome. Patient cannot take anti-inflammatories, but she has had Toradol in the past and had no reaction. Patient took 2 extra strength Tylenol prior to arrival. Patient's had nausea this morning no vomiting. Patient states she overall feels weak and also has been having intermittent dizziness and vertigo as well this morning. Patient has mild vertigo at this time. Patient has no chest pain or shortness of breath. Patient has some vague right lateral abdominal wall pain. Patient does not have her appendix, she does have her gallbladder. Patient has a hysterectomy. Patient lives at home with her boyfriend, she has no job. Patient has no new falls, no new syncopal episodes today. Patient came in by EMS secondary to generalized weakness and pain. Patient initially told me that when she came in last evening, she was given IV fentanyl by EMS and then given morphine in the ER last night because of headache. Patient was corrected by nurse LUZ BANUELOS at bedside, patient was not given morphine because she has a care plan that she is not to receive narcotics. Patient then said yes, maybe I got that morphine dose in [place] previously patient has no new extremity complaint. No acute bowel or bladder changes, no other acute complaints [facility] Medical History Bipolar disorder Chronic pain History of renal calculi History of uterine cancer (2006) Hyperlipidemia Incomplete right bundle branch block Lung nodule Migraine Obesity Ovarian cyst Pancreatitis Right tubo-ovarian mass Ureteral stone with hydronephrosis Home Medications prazosin 1 mg capsule 1 mg PO QHS 03/26/20 [History Last Taken Unknown] gabapentin 400 mg capsule 800 mg PO TID 10/03/20 [History Last Taken Unknown] hydroxyzine HCl 50 mg tablet 50 mg PO QHS 10/03/20 [History Last Taken Unknown] omeprazole magnesium 20 mg tablet,delayed release 20 mg PO DAILY 10/03/20 [History Last Taken Unknown] promethazine 25 mg tablet 25 mg PO TID PRN nausea and vomiting #14 tabs 06/14/21[Rx Last Taken Unknown] ondansetron 4 mg disintegrating tablet 4 mg PO Q8H PRN nausea and vomiting #10 tabs 04/10/22 [Rx Last Taken Unknown] quetiapine 50 mg tablet 50 mg PO QHS 09/07/22 [History Last Taken Unknown] lorazepam 1 mg tablet (Ativan) 1 mg PO DAILY 02/10/23 [History Last Taken Unknown] Allergy/AdvReac Type Severity Reaction Status Date / Time Iodinated Contrast Media [CT] Allergy Anaphylaxis Verified 02/09/23 19:31 ketorolac tromethamine Allergy Rash Verified 02/09/23 19:31 [From Toradol] metronidazole [From Flagyl] Allergy Hives Verified 02/09/23 19:31 Penicillins Allergy Hives Verified 02/09/23 19:31 aspirin AdvReac Upset Verified 02/09/23 19:31 Stomach Family History Aunt Breast cancer Grandfather CAD (coronary artery disease) Father Heart disease, Onset Age: 73 Triple bypass Mother Heart disease, Onset Age: 62 Other Diabetes Surgical History H/O ovarian cystectomy (09/2019) History of bilateral oophorectomy History of hysterectomy History of tubal ligation Social History household members: none Smoking Status: Current every day smoker tobacco type: cigarettes Tobacco: How many years used: 15 substance use type: does not use ROS ROS ED ROS Narrative REVIEW OF SYSTEMS: Unless otherwise stated in this report the patient's positiveand negative responses for review of systems for constitutional, eyes, ENT, cardiovascular, respiratory, gastrointestinal, neurological, , musculoskeletal, and integument systems and related systems to the presenting problem are either stated in the history of present illness or were not pertinent or were negative for the symptoms and/or complaints related to the presenting medical problem. EXAM Physical Exam Narrative Exam Narrative: Vital signs reviewed and patient is not hypoxic. General: The patient appears well and in no apparent distress. Patient is resting comfortably on cart. Not toxic, lethargic, or listless. Skin: Warm, dry, no pallor noted. There is no rash noted. Head: Normocephalic, atraumatic, patient has mild tenderness palpation to paracervical soft tissue from C3 approximately C6. Patient has full range of motion of cervical spine with no significant difficulty. No meningeal signs or symptoms. No scalp hematoma noted. Eye: Normal conjunctiva, no drainage, EOMI. PERRL. Patient has no lateral, rotary, or horizontal nystagmus. Ears, Nose, Mouth, and Throat: oral mucosa is moist. Nares patent. Mouth withoutvesicles. Cardiovascular: Regular Rate and Rhythm, no murmurs, gallops, or rubs Respiratory: Patient is in no distress, no accessory muscle use, lungs are clearto auscultation, no wheezing, rales or rhonchi Back: non-tender, no CVA tenderness bilaterally to percussion. NO CTLS midline or paraspinal tenderness to palpation. GI: Soft, obese, mild right upper quadrant tenderness palpation, negative Murphysign, no tenderness to midepigastric area, mild tenderness to the lateral chest wall secondary to muscle skeletal pain from yesterday patient states. No peritoneal signs. No flank pain bilateral. No rigidity or tympany. No tenderness to palpation, no masses appreciated. No rebound, guarding, or rigidity noted. Musculoskeletal: The patient has full range of motion of all extremities and joints with no difficulty. Patient has no motor, no sensory deficits. Neurological: A&O x4, normal speech, no focal neurological deficits. Psychiatric: Cooperative, patient is histrionic, patient has normal appearing soreness from a fall yesterday, no acute findings on today's clinical exam Const Vital Signs: 02/10/23 14:35 02/10/23 14:44 Temperature 96.3 F L Temperature Source Temporal Pulse Rate 77 Respiratory Rate 18 Respiratory Effort Normal Respiratory Pattern Normal Blood Pressure 146/85 H Blood Pressure Mean 105 Pulse Ox 98 Oxygen Delivery Method Room Air [facility] Lab Data Attestation: I reviewed the patient's lab results. Labs: Laboratory Results - last 24 hr 02/10/23 02/10/23 02/10/23 15:20 15:20 15:23 WBC 9.4 RBC 4.38 Hgb 12.9 Hct 40.3 MCV 92.0 MCH 29.5 MCHC 32.0 RDW Std Deviation 45.7 H RDW Coeff of Shun 13.6 Plt Count 244 MPV 10.7 Immature Gran % (Auto) 1.500 H Neut % (Auto) 60.2 Lymph % (Auto) 29.9 [place] % (Auto) 5.3 Eos % (Auto) 2.4 Baso % (Auto) 0.7 Absolute Neuts (auto) 5.7 Absolute Lymphs (auto) 2.82 Nucleated RBC % 0 Sodium Potassium Chloride Carbon Dioxide Anion Gap BUN Creatinine Estim Creat Clear Calc Est GFR (MDRD) Af Amer Est GFR (MDRD) Non-Af BUN/Creatinine Ratio Glucose Lactic Acid Calcium Total Bilirubin AST ALT Alkaline Phosphatase Troponin I High Sens Total Protein Albumin Globulin Albumin/Globulin Ratio Lipase Urine Color Yellow Urine Clarity Sl. Cloudy Urine pH 6.5 Ur Specific [place] 1.015 Urine Protein Negative Urine Glucose (UA) Normal Urine Ketones Negative Urine Occult Blood Negative Urine Nitrite Negative Urine Bilirubin Negative Urine Urobilinogen Normal Ur Leukocyte Esterase Negative Urine RBC 0 SEEN Urine WBC 0 SEEN Ur Squamous Epith Cells 10-25 SEEN Urine Bacteria 1+ Urine Mucus 0 SEEN Urine Test Negative 02/10/23 02/10/23 15:23 15:23 WBC RBC Hgb Hct MCV MCH MCHC RDW Std Deviation RDW Coeff of Shun Plt Count MPV Immature Gran % (Auto) Neut % (Auto) Lymph % (Auto) [place] % (Auto) Eos % (Auto) Baso % (Auto) Absolute Neuts (auto) Absolute Lymphs (auto) Nucleated RBC % Sodium 138 Potassium 3.6 Chloride 104 Carbon Dioxide 29.0 Anion Gap 5 BUN 10 Creatinine 1.08 H Estim Creat Clear Calc 50.68 Est GFR (MDRD) Af Amer 71 Est GFR (MDRD) Non-Af 59 L BUN/Creatinine Ratio 9.3 L Glucose 96 Lactic Acid 0.4 Calcium 9.3 Total Bilirubin 0.40 AST 16 ALT 24 Alkaline Phosphatase 116 Troponin I High Sens 5 Total Protein 7.7 Albumin 3.9 Globulin 3.8 Albumin/Globulin Ratio 1.0 Lipase 37 Urine Color Urine Clarity Urine pH Ur Specific [place] Urine Protein Urine Glucose (UA) Urine Ketones Urine Occult Blood Urine Nitrite Urine Bilirubin Urine Urobilinogen Ur Leukocyte Esterase Urine RBC Urine WBC Ur Squamous Epith Cells Urine Bacteria Urine Mucus Urine Test EKG Initial EKG: Attestation: I personally reviewed and interpreted this EKG as follows: Comments: EKG interpretation. Normal sinus rhythm at 71 beats a minute. Normal axis deviation. No acute ST elevation, no acute ectopy. QTc of 436. Treatment and Re-Evaluation :: Patient feels better after IV fluids. Patient did have some mild itching and irritation from the medications possibly given. Patient was given Pepcid and Benadryl at discharge. Patient's headache was much better after IV fluids and Toradol and Norflex. Patient's muscle pain had improved as well with IV fluids,Toradol and Norflex. Patient's labs showed no acute abnormality. Patient does have a neurologist that she can follow-up with that she is established with, jv call tomorrow. Patient has a PCP appointment next week. Patient may be referred to cardiology if needed. Patient feels better, wants to be discharged because she needs to go home and take care of matters at home. Patient has no questions at discharge. Discharge Plan Triage Chief Complaint: Weakness Other Complaint: General Illness ED Provider: Marcelino Rosa Dx/Rx/DC Orders Clinical Impression: Closed head injury, Weakness generalized, Cervical pain (neck), Mild headache Instructions: ED Head Injury (Adult), ED Neck Pain, ED Pain, Acute, Uncertain Cause, ED Weakness (Uncertain Cause) Prescriptions: No Action prazosin 1 MG capsule 1 mg PO QHS gabapentin 400 MG capsule 800 mg PO TID hydroxyzine HCl 50 MG tablet 50 mg PO QHS omeprazole magnesium 20 MG tablet,delayed release (DR/EC) 20 mg PO DAILY promethazine 25 mg tablet 25 mg PO TID PRN (Reason: nausea and vomiting) Qty: 14 0RF ondansetron 4 mg tablet,disintegrating 4 mg PO Q8H PRN (Reason: nausea and vomiting) Qty: 10 0RF quetiapine 50 mg tablet 50 mg PO QHS Label Comments: TAKE ONE TO TWO TABLETS BY MOUTH AT BEDTIME lorazepam [Ativan] 1 mg Tablet 1 mg PO DAILY Primary Care Provider: Isabel Arias Referrals: Isabel Arias PA [Primary Care Provider] - Activity Restrictions/Additional Instructions: Increase fluids, use ice 20 minutes on, 20 minutes off. Do not use heat. Follow- up with PCP and be referred to cardiology if needed. Call your neurologist tomorrow for follow-up with your syncopal episode yesterday mild headache. Increase fluids. Use muscle relaxer at home as needed. If you are having any more itching, irritation or possible allergic reaction, use olsa-lef-aasogex antihistamines and Pepcid if needed for possible allergic reaction. Disposition Disposition: Home, Self Care What to do if you have Problems For any increased pain, shortness of breath, bleeding, nausea or vomiting, chestpain, or any unexpected problems, contact your Primary Care Provider. Call [facility] ([phone]) or report to the closest Emergency Room. Call 911 if necessary. 02/10/231815 <Electronically signed by Marcelino Rosa DO> Cosigner Signature (if applicable): CC: CHAZ Arias ~ Signed [facility] Work Phone: [phone] 374-270305-10-2023 Hospital Discharge instructions Patient Education 01/21/2023 15:58:33 Cellulitis Skin Infection Cellulitis Cellulitis is an infection of the deep layers of skin. A break in the skin, such as a cut or scratch, can let bacteria under the skin. If the bacteria get to deep layers of the skin, it can be serious. If not treated, cellulitis can get into the bloodstream and lymph nodes. The infection can then spread throughout the body. This causes serious illness. Cellulitis causes the affected skin to become red, swollen, warm, and sore. The reddened areas havea visible border. An open sore may leak fluid (pus). You may have a fever, chills, and pain. Cellulitis is treated with antibiotics taken for 7 to 10 days. An open sore may be cleaned and covered with cool wet gauze. Symptoms should get better 1 to 2 days after treatment is started. Make sure to take all the antibiotics for the full number of days until they are gone. Keep taking the medicine even if your symptoms go away. Home care Follow these tips: Limit the use of the part of your body with cellulitis. If the infection is on your leg, keep your leg raised while sitting. This will help to reduce swelling. Take all of the antibiotic medicine exactly as directed until it is gone. Do not miss any doses, especially during the first 7 days. Don t stop taking the medicine when your symptoms get better. Keep the affected area clean and dry. Wash your hands with soap and warm water before and after touching your skin. Anyone else who touches your skin should also wash his or her hands. Don't share towels. Follow-up care Follow up with your healthcare provider, or as advised. If your infection does not go away on the first antibiotic, your healthcare provider will prescribe a different one. When to seek medical advice Call your healthcare provider right away if any of these occur: Red areas that spread Swelling or pain that gets worse Fluid leaking from the skin (pus) Fever higher of 100.4 F (38.0 C) or higher after 2 days on antibiotics [id number] [employer]. [address] [place] [address]. All rights reserved. This information is not intended as a substitute for professional medical care. Always follow yourhealthcare professional's instructions. Follow Up Care 01/21/2023 15:10:03 With:MERCED HUTCHINSON Address: [address] [place] [phone] When:2-4 days Comments:Make an appointment in 2 to 4 days with your physician. Return if you are worse in any way. [facility] 05-10-2023 Note Discharge Instructions Thank you for allowing [place] [facility] to assist you with your healthcare needs. The following is importantdischarge information regarding your hospital visit. Diagnosis from Today's Visit Wound of left breast Breast Pain/Discharge What to Do Next Instructions from Your Care Team Switching your antibiotic as we discussed. The wound really appears to be healing well. Keep the area clean and dry. Sleep with just a loosefitting shirt on no bra. Make sure is covered when you are at work. Follow-up with your physician in 2 to 3 days. Return if worse anyway. No qualifying data available. Post Acute Orders No qualifying data available. You Need to Schedule the Following Appointments Follow Up with MERCED HUTCHINSON When Within 2-4 days Why: Make an appointment in 2 to 4 days with your physician. Return if you are worse in any way. Where: [address] [place] [phone] Allergies Advil Contrast dye Flagyl Motrin NSAIDS Toradol Toradol IV/IM Zofran aspirin penicillin Medications Please ask your primary doctor or pharmacist before taking any other medication not listed, including over the counter drugs, herbal medications, vitamins and or supplements as they may interact withyour home medications. What How Much When Why Instructions Last Dose New clindamycin (clindamycin 300 mg oral capsule) 1 cap by mouth Every 6 hours Wound of left breast Duration: 10 Days Printed Prescription Unchanged acetaminophen-hydrocodone (Acushnet 325- 5 mg oral tablet) 1 tab(s) by mouth Every 6 hours as needed for as needed for pain Abdominal pain Duration: 3 Days Unchanged acetaminophen-hydrocodone (Acushnet 325- 5 mg oral tablet) 1 tab(s) by mouth Every 6 hours Cellulitis Duration: 3 Days Unchanged acetaminophen-hydrocodone (Acushnet 325- 5 mg oral tablet) 1 tab(s) by mouth Every 6 hours as needed for as needed for pain Kidney stone Duration: 3 Days Unchanged ARIPiprazole (ARIPiprazole 10 mg oral tablet) 1 tab(s) by mouth Once a day Unchanged busPIRone (busPIRone 10 mg oral tablet) 1 tab(s) by mouth Three (3) times a day Unchanged cephalexin (cephalexin 500 mg oral capsule) 1 cap by mouth Two (2) times a day Kidney stone Duration: 7 Days Unchanged doxycycline (doxycycline hyclate 100 mg oral delayed release tablet) 1 tab(s) by mouth Two (2) times a day Duration: 7 Days Unchanged estradiol (estradiol 0.5 mg oral tablet) 1 tab(s) by mouth Once a day Unchanged formoterol-mometasone (Dulera 200 mcg-5 mcg/ inh Metered Dose Inhaler) 2 puff(s) by inhalation Two (2) times a day Unchanged gabapentin (gabapentin 400 mg oral capsule) 1 cap by mouth Once a day as needed for Muscle pain Unchanged hydrOXYzine (hydrOXYzine hydrochloride 25 mg oral tablet) 1 tab(s) by mouth Four (4) times a day as needed for for itching Unchanged mirtazapine (mirtazapine 30 mg oral tablet) 1 tab(s) by mouth Daily at bedtime Unchanged Misc Medication (B-12 1,000 MCG TABLET) Unchanged montelukast (montelukast 10 mg oral tablet) 1 tab(s) by mouth Once a day Unchanged mupirocin topical (mupirocin 2% topical cream) 1 application Topical Three (3) times a day Duration: 7 Days Unchanged nystatin (nystatin 100,000 units/ mL oral suspension) Unchanged OXcarbazepine (OXcarbazepine 300 mg oral tablet) 2 tab(s) by mouth Two (2) times a day Unchanged PARoxetine (PARoxetine 10 mg oral tablet) 1 tab(s) by mouth Once a day Unchanged prazosin (prazosin 1 mg oral capsule) Unchanged promethazine (Phenergan ORAL use promethazine ) 25 Milligram by mouth Every 4 hours Abdominal pain Unchanged promethazine (promethazine 25 mg oral tablet) 1 tab(s) by mouth Every 4 hours as needed for as needed for nausea/vomiting Kidney stone Unchanged promethazine (promethazine 25 mg oral tablet) Unchanged QUEtiapine (SEROquel 100 mg oral tablet) 1 tab(s) by mouth Daily at bedtime Unchanged sertraline (Zoloft 100 mg oral tablet) 1 tab(s) by mouth Once a day Unchanged sucralfate (sucralfate 1 g oral tablet) 1 tab(s) by mouth Two (2) times a day Unchanged tamsulosin (Flomax 0.4 mg oral capsule) 1 cap by mouth Once a day Duration: 5 Days Unchanged triamcinolone topical (triamcinolone 0.1% topical paste) Please take this list to your next doctor s visit. Bring all medications you take, including over the counter medications, herbals and other supplements with you to your doctor s visit. Patients and families are reminded to discard old lists and to update any records with all medication providers or retail pharmacies. Education Materials Cellulitis Cellulitis is an infection of the deep layers of skin. A break in the skin, such as a cut or scratch, can let bacteria under the skin. If the bacteria get to deep layers of the skin, it can be serious. If not treated, cellulitis can get into the bloodstream and lymph nodes. The infection can then spread throughout the body. This causes serious illness. Cellulitis causes the affected skin to become red, swollen, warm, and sore. The reddened areas havea visible border. An open sore may leak fluid (pus). You may have a fever, chills, and pain. Cellulitis is treated with antibiotics taken for 7 to 10 days. An open sore may be cleaned and covered with cool wet gauze. Symptoms should get better 1 to 2 days after treatment is started. Make sure to take all the antibiotics for the full number of days until they are gone. Keep taking the medicine even if your symptoms go away. Home care Follow these tips: Limit the use of the part of your body with cellulitis. If the infection is on your leg, keep your leg raised while sitting. This will help to reduce swelling. Take all of the antibiotic medicine exactly as directed until it is gone. Do not miss any doses, especially during the first 7 days. Don t stop taking the medicine when your symptoms get better. Keep the affected area clean and dry. Wash your hands with soap and warm water before and after touching your skin. Anyone else who touches your skin should also wash his or her hands. Don't share towels. Follow-up care Follow up with your healthcare provider, or as advised. If your infection does not go away on the first antibiotic, your healthcare provider will prescribe a different one. When to seek medical advice Call your healthcare provider right away if any of these occur: Red areas that spread Swelling or pain that gets worse Fluid leaking from the skin (pus) Fever higher of 100.4 F (38.0 C) or higher after 2 days on antibiotics 2556-5330 [employer]. [address] [place] [address]. All rights reserved. This information is not intended as a substitute for professional medical care. Always follow yourhealthcare professional's instructions. Additional Information VACCINATE! IT SAVES LIVES! Members of the community who have not yet received the COVID-19 vaccine and would like to receive it can visit one of [facility] vaccine clinics. There are many vaccine clinic locations within the [facility]. For locations and available times, please visit www.[email or web address].[place].gov/. It is important to note that some COVID mobile vaccine clinics are held outdoors and may be canceled in rainy or stormy conditions. To learn more about pediatric vaccinations (ages 5-11), we invite you to visit the [facility] webpage. [email or web address] learn more about the COVID-19 vaccine, we invite you to visit the CDC website for a list of frequently asked questions. https://www.cdc.gov/coronavirus/2019-ncov/vaccines/faq.html [facility] Patient Portal Access Instructions: Stay connected with your healthcare team and access your personal medical information anytime with the [facility] Patient Portal. If you would like a full copy of your medical records please contact the [facility] Medical Records Department Thursday through Thursday between 8a.m. and 4:30p.m. Please follow the directions below to access the portal: 1.Access the email account you provided upon registration to the [facility].2.Look for an invitation email from [facility].3.Open the email and access the invitation link: Accept Invitation to [facility]4.Fill in the required xiong to create your account. Sign into [email or web address] with your username and password that you created in the above steps to stay up to date. You can then view a summary of results, a summary of your visits, and the ability to download your summaries to your computer or send the information securely to a physician. Remember that your healthcare information is confidential, so carefully consider who you will allow to register on the [facility] Patient Portal for access to your information. You can also access the [facility] Patient Portal on the [employer]. Simply click on Health Records under HealthData and then click on the [employer] logo. HOW TO SAFELY DISPOSE OF PRESCRIPTION MEDICATIONS Please use one of the following methods to safely dispose of your unused medications. 1.Use a drug disposal kit: the drug disposal pouch allows you to safely discard your old and unuseddrugs. Ask your nurse to give you one when you are discharged.2.Visit a local take-back location: Many local pharmacies and police departments have programs that collect old and unwanted prescriptiondrugs. Call your local pharmacy or go to http://bit.ly/3F5Tq2f to find one close to you.3.Make use of household items: Use cat litter or old coffee grounds to dispose medications if other options arenot available. Mix your drugs with these household products, seal them in an airtight container andthrow it into the garbage. Call [facility]: [phone] to be sure your drugs can be disposed of in this way. Some medicines may require a different approach.4.Never flush your medications down the toilet. IF YOU HAVE BEEN PRESCRIBED AN OPIOIDS FOR PAIN If you have been prescribed an opioid (such as hydrocodone, oxycodone or morphine), it is critical to understand the possible side effects and risks of opioid pain medications. Even when taken as directed, opioids can have several side effects including: Tolerance, meaning you might need to take more of a medication for the same pain relief. Nausea, vomiting and/or constipation. Sleepiness, dizziness, dry mouth, confusion, depression or itching. Physical dependence, meaning you have withdrawal symptoms when a medication is stopped ? this can develop within a few days. KNOW YOUR RESPONSIBILITIES It is important to know exactly how much and how often to take the opioid pain medications you are prescribed. Never take opioids in higher amounts or more often than prescribed. Do not combine opioids with alcohol or other drugs that cause drowsiness, such as benzodiazepines, also known as benzos,including diazepam and alprazolam, muscle relaxants or sleep aids. Never sell or share prescriptionopioids. This is illegal. Store opioids in a secure place and out of reach of others (including children, family, friends and visitors). The last page(s) of this document has been signed and retained as a CHART COPY Signatures Patient Education Materials Cellulitis Skin Infection Medication Leaflets My discharge plan and instructions have been reviewed and explained to me and ISAM NICHOLE L understand my current condition and have read and understand these discharge instructions. I have received a written copy of the plan/instructions. If I have questions, I am aware that I should contact my doctor. 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 Hernandez's recommendations. Pt is in ER now waiting to be seen. She notes the sores have gotten worse. * Telephone Encounter - Cintia Clay LPN - 01/21/2023 2:54 PM EDT Called the wound center and they do take pts insurance but pt has specific days and times she was available due to transportation. * Telephone Encounter - Robbin Hernandez MD - 01/21/2023 2:10 PM EDT No other recommendations. Follow up with PCP. * Telephone Encounter - Whit Guardado LPN - 01/21/2023 1:29 PM EDT Patient returned call and went over notes from Dr Hernandez. [facility] no [facility]. She checked with [facility], there does not take her insurance. Any other recommendations? * Telephone Encounter - Cintia Clay LPN - 01/21/2023 1:25 PM EDT Can you file new order for consult? * Telephone Encounter - Robbin Hernandez MD - 01/21/2023 12:54 PM EDT No additional medications recommended. Refer to [facility]. * Telephone Encounter - Renetta Hernández RN - 01/20/2023 4:54 PM EDT Patient calling and reports she was seen by Dr. Hernandez on 01/19 for her open wound to left breast.Patient states she was referred to [facility]. Patient calling to update provider and PCP that the [facility] wound center does not take her insurance. Patient asking what should she do? Patient also states she has completed the doxycycline and mupirocin and asks if additional medication should be ordered? Please advise patient. Thank you. [facility] History of Present illness Narrative* Robbin Hernandez MD - 01/19/2023 7:36 PM EDT This note was created using [employer]. Subjective Patient presents with: ED Follow-up Sally Vargas is a 42 year old female here with her female friend, for a sore of the left breast ongoing for 2 months, with purulent drainage off and on. She was seen in [facility] and it seemswas seen in [place] [facility] twice. Records were limited on Care Everywhere. She was on doxycycline and mupirocin. Pain was 9/10. She was told her wound was negative for MRSA. She's had similar issues in the past, and was admitted at [facility] 2 years ago for IV antibiotics. Mammogram last month was normal. She also had an outside US showing no abscess. Review of Systems Constitutional: Negative for chills and fever. Respiratory: Negative for shortness of breath. ACTIVE PROBLEM LIST Routine gynecological examination Family [...] Chronic Pain Syndrome Liver Cyst Post-Op Pain Marijuana Use Pain of Multiple Sites Functional Abdominal Pain Syndrome Functional Vomiting Covid-19 Virus Infection Former Smoker Social History Tobacco Use Smoking status: Former Packs/day: 0.50 Years: 3.00 Pack years: 1.50 Types: Cigarettes Quit date: 01/12/2017 Years since quittin.0 Smokeless tobacco: Never Tobacco comments: Approx. 3 cigarettes daily-1 pack every week Vaping Use Vaping Use: Never used Substance Use Topics Alcohol use: Yes Comment: Occasional Drug use: Never Current Outpatient Medications Medication Sig montelukast (SINGULAIR) 10 mg tablet Take 1 tablet by mouth daily at bedtime. fluticasone propionate (FLOVENT DISKUS) 250 mcg/actuation inhaler Inhale 2 Puffs as instructed twice daily. Rinse mouth after use gabapentin (NEURONTIN) 800 mg tablet TAKE 1 TABLET BY MOUTH THREE TIMES A DAY albuterol HFA (VENTOLIN HFA) 90 mcg/actuation inhaler Inhale 2 Puffs as instructed every 4 hours asneeded for wheezing/shortness of breath. cholecalciferol, Vitamin D3, (VITAMIN D3) 1,250 mcg (50,000 unit) cap capsule Take 1 capsule by mouth one time a week. cyanocobalamin (VITAMIN B-12) 1,000 mcg tab Take 1 tablet by mouth once daily. atorvastatin (LIPITOR) 10 mg tablet Take 1 tablet by mouth daily at bedtime. For cholesterol. QUEtiapine (SEROQUEL) 50 mg tablet Take 50 mg by mouth daily at bedtime. pantoprazole DR (PROTONIX) 40 mg tablet Take 1 tablet by mouth once daily. Take on empty stomach, 1/2 hr before meal. diphenhydrAMINE (BENADRYL) 25 mg capsule Take 50 mg by mouth at bedtime as needed. methylPREDNISolone (MEDROL, JO,) 4 mg Dose-Pack As Instructed per package (Patient not taking: No sig reported) No current facility-administered medications for this visit. Objective BP 130/76 (BP Site: Right Arm, BP Position: Sitting, BP Cuff Size: Large Adult) Pulse 84 Temp 37 C (98.6 F) (Temporal) Resp 18 Wt 98 kg (216 lb) LMP 08/10/2006 BMI 40.26 kg/m Physical Exam Constitutional: General: She is not in acute distress. Appearance: She is not ill-appearing. Pulmonary: Effort: Pulmonary effort is normal. Chest: Comments: Inspection only: 1.8 cm x 1.8 cm superficial moist ulcer left breast lateral to areola. No dressing applied. No drainage. Tender to self palpation. Neurological: Mental Status: She is alert. Assessment and Plan 1. Open wound of left breast, subsequent encounter - ICD9: V58.89, 879.0, ICD10: S21.002D - Opioid is for short term only. Risks reviewed. - HYDROCODONE 5 MG-ACETAMINOPHEN 325 MG TABLET - CONSULT TO NON-[facility] FACILITY - [facility]. Patient indicated understanding and willingness to follow recommendations. Follow up with her PCP. Robbin Hernandez MD [facility] Hospital Discharge instructions Patient Education 01/15/2023 11:15:50 Wound Care Wound Care Taking proper care of your wound will help it heal. Your healthcare provider may show you how to clean and dress the wound. He or she will also explain how to tell if the wound is healing normally. If you are unsure of how to take care of the wound, be sure to clarify what dressing to use and how often you should change the bandages. Here are the basic steps. A wound that's not healing normally may be dark in color or have white streaks. Wash your hands Tips for washing your hands include: Use liquid soap and lather for 2 minutes. Scrub between your fingers and under your nails. Rinse with warm water, keeping your fingers pointing down. Use a paper towel to dry your hands and to turn off the faucet. Remove the used dressing Here are suggestions for removing the dressing: If dressing changes cause you pain, be sure to take your pain medicine as prescribed by your healthcare provider 30 minutes before dressing changes. Set up your supplies. Put on disposable gloves if you re dressing a wound for someone else or your wound is infected. Loosen the tape by pulling gently toward the wound. Gently take off the old dressing. If the dressing is stuck to the wound, moisten it with saline (ifavailable) or clean water. If you have a drain or tube in the wound, be careful not to pull on it. Remove the dressing 1 layer at a time and put it in a plastic bag. Seal the bag and put it in the trash. Remove your gloves. Inspect and dress the wound Check the wound carefully: Each time you change the dressing, check the wound carefully to be sure it s healing normally by making sure your wound appears to be pink and moist, and is free of infection. Wash your hands again. Put on a new pair of gloves. Clean and dress the wound as directed by your healthcare provider or nurse. Don't put anything in the wound that is not prescribed or directed by your healthcare provider. If you have a drain or tube, be careful not to pull on it. Make sure to secure the drain or tube as well. Put all unused supplies in a clean plastic bag. Seal the bag and store it in a clean, dry area between dressing changes. Be sure to wash your hands again. Call your healthcare provider Call your healthcare provider if you see any of the following signs of a problem: Bleeding that soaks the dressing [place] fluid weeping from the wound Increased drainage or drainage that is yellow, yellow-green, or foul-smelling Increased swelling or pain, or redness or swelling in the skin around the wound A change in the color of the wound, or if streaks develop in a direction away from the wound The area between any stitches opens up An increase in the size of the wound A fever of 100.4 F (38 C) or higher, or as directed by your healthcare provider Chills, increased fatigue, or a loss of appetite [id number] [employer] [address] [place] [address]. All rights reserved. This information is not intended as a substitute for professional medical care. Always follow yourhealthcare professional's instructions. Follow Up Care 01/15/2023 10:59:24 With:MERCED HUTCHINSON Address: [address] [place] [phone] When:2-4 days [facility] 05-04-2023 Note Discharge Instructions Thank you for allowing [facility] to assist you with your healthcare needs. The following is importantdischarge information regarding your hospital visit. Diagnosis from Today's Visit Breast Pain/Discharge What to Do Next Instructions from Your Care Team No qualifying data available. Post Acute Orders No qualifying data available. You Need to Schedule the Following Appointments Follow Up with MERCED HUTCHINSON When Within 2-4 days Where: [address] [place] [phone] Allergies Advil Contrast dye Flagyl Motrin NSAIDS Toradol Toradol IV/IM Zofran aspirin penicillin Medications Please ask your primary doctor or pharmacist before taking any other medication not listed, including over the counter drugs, herbal medications, vitamins and or supplements as they may interact withyour home medications. What How Much When Why Instructions Last Dose New doxycycline (doxycycline hyclate 100 mg oral delayed release tablet) 1 tab(s) by mouth Two (2) times a day Duration: 7 Days Printed Prescription New mupirocin topical (mupirocin 2% topical cream) 1 application Topical Three (3) times a day Duration: 7 Days Printed Prescription Unchanged acetaminophen-hydrocodone (Acushnet 325- 5 mg oral tablet) 1 tab(s) by mouth Every 6 hours as needed for as needed for pain Abdominal pain Duration: 3 Days Unchanged acetaminophen-hydrocodone (Acushnet 325- 5 mg oral tablet) 1 tab(s) by mouth Every 6 hours Cellulitis Duration: 3 Days Unchanged acetaminophen-hydrocodone (Acushnet 325- 5 mg oral tablet) 1 tab(s) by mouth Every 6 hours as needed for as needed for pain Kidney stone Duration: 3 Days Unchanged busPIRone (busPIRone 10 mg oral tablet) 1 tab(s) by mouth Three (3) times a day Unchanged cephalexin (cephalexin 500 mg oral capsule) 1 cap by mouth Two (2) times a day Kidney stone Duration: 7 Days Unchanged estradiol (estradiol 0.5 mg oral tablet) 1 tab(s) by mouth Once a day Unchanged gabapentin (gabapentin 400 mg oral capsule) 1 cap by mouth Once a day as needed for Muscle pain Unchanged hydrOXYzine (hydrOXYzine hydrochloride 25 mg oral tablet) 1 tab(s) by mouth Four (4) times a day as needed for for itching Unchanged mirtazapine (mirtazapine 30 mg oral tablet) 1 tab(s) by mouth Daily at bedtime Unchanged nystatin (nystatin 100,000 units/ mL oral suspension) Unchanged OXcarbazepine (OXcarbazepine 300 mg oral tablet) 2 tab(s) by mouth Two (2) times a day Unchanged PARoxetine (PARoxetine 10 mg oral tablet) 1 tab(s) by mouth Once a day Unchanged prazosin (prazosin 1 mg oral capsule) Unchanged promethazine (Phenergan ORAL use promethazine ) 25 Milligram by mouth Every 4 hours Abdominal pain Unchanged promethazine (promethazine 25 mg oral tablet) 1 tab(s) by mouth Every 4 hours as needed for as needed for nausea/vomiting Kidney stone Unchanged promethazine (promethazine 25 mg oral tablet) Unchanged QUEtiapine (SEROquel 100 mg oral tablet) 1 tab(s) by mouth Daily at bedtime Unchanged sertraline (Zoloft 100 mg oral tablet) 1 tab(s) by mouth Once a day Unchanged sucralfate (sucralfate 1 g oral tablet) 1 tab(s) by mouth Two (2) times a day Unchanged tamsulosin (Flomax 0.4 mg oral capsule) 1 cap by mouth Once a day Duration: 5 Days Unchanged triamcinolone topical (triamcinolone 0.1% topical paste) Please take this list to your next doctor s visit. Bring all medications you take, including over the counter medications, herbals and other supplements with you to your doctor s visit. Patients and families are reminded to discard old lists and to update any records with all medication providers or retail pharmacies. Medication Leaflets doxycycline (oral/injection) (DOX justyna banks) Acticlate, Adoxa, Alodox, Avidoxy, Doryx, Mondoxyne NL, Monodox, Morgidox, Okebo, Oracea, Oraxyl, Targadox, Vibramycin What is the most important information I should know about doxycycline? You should not take this medicine if you are allergic to any tetracycline antibiotic. Children younger than 8 years old should use doxycycline only in cases of severe or life-threatening conditions. This medicine can cause permanent yellowing or graying of the teeth in children Using doxycycline during could harm the unborn baby or cause permanent tooth discoloration later in the baby's life. What is doxycycline? Doxycycline is a tetracycline antibiotic that Doxycycline is used to treat many different bacterial infections, such as acne, urinary tract infections, intestinal infections, eye infections, gonorrhea, chlamydia, periodontitis (gum disease), andothers. Doxycycline is also used to treat blemishes, bumps, and acne-like lesions caused by rosacea. Doxycycline will not treat facial redness caused by rosacea. Some forms of doxycycline are used to prevent malaria, to treat anthrax, or to treat infections caused by mites, ticks, or lice. Doxycycline may also be used for purposes not listed in this medication guide. What should I discuss with my healthcare provider before taking doxycycline? You should not take this medicine if you are allergic to doxycycline or other tetracycline antibiotics such as demeclocycline, minocycline, tetracycline, or tigecycline. Tell your doctor if you have ever had: liver disease; kidney disease; asthma or sulfite allergy; increased pressure inside your skull; or if you also take isotretinoin, seizure medicine, or a blood thinner such as warfarin (Coumadin). If you are using doxycycline to treat gonorrhea, your doctor may test you to make sure you do not also have syphilis, another sexually transmitted disease. Taking this medicine during may affect tooth and bone development in the unborn baby. Taking doxycycline during the last half of can cause permanent tooth discoloration later in the baby's life. Tell your doctor if you are or if you become . Doxycycline can make control pills less effective. Ask your doctor about using a non-hormonalbirth control (condom, diaphragm with spermicide) to prevent . Doxycycline can pass into breast milk and may affect bone and tooth development in a nursing . Do not breastfeed while you are taking doxycycline. Doxycycline can cause permanent yellowing or graying of the teeth in children younger than 8 years old. Children should use doxycycline only in cases of severe or life-threatening conditions such as anthrax or [place] spotted fever. The benefit of treating a serious condition may outweigh any risks to the child's tooth development. How should I take doxycycline? Follow all directions on your prescription label and read all medication guides or instruction sheets. Use the medicine exactly as directed. Take doxycycline with a full glass of water. Drink plenty of liquids while you are taking doxycycline. Read and carefully follow any Instructions for Use provided with your medicine. Ask your doctor or pharmacist if you do not understand these instructions. Most brands of doxycyline may be taken with food or milk if the medicine upsets your stomach. Different brands of doxycycline may have different instructions about taking them with or without food. Take Oracea on an empty stomach, at least 1 hour before or 2 hours after a meal. You may need to split a doxycycline tablet to get the correct dose. Follow your doctor's instructions. Swallow a delayed-release capsule or tablet whole. Do not crush, chew, break, or open it. Measure liquid medicine with the dosing syringe provided, or with a special dose-measuring spoon ormedicine cup. If you do not have a dose-measuring device, ask your pharmacist for one. If you take doxycycline to prevent malaria: Start taking the medicine 1 or 2 days before entering an area where malaria is common. Continue taking the medicine every day during your stay and for at least 4 weeks after you leave the area. Doxycycline is usually given by injection only if you are unable to take the medicine by mouth. A healthcare provider will give you this injection as an infusion into a vein. Use this medicine for the full prescribed length of time, even if your symptoms quickly improve. Skipping doses can increase your risk of infection that is resistant to medication. Doxycycline will not treat a viral infection such as the flu or a common cold. Store at room temperature away from moisture, heat, and light. Throw away any unused medicine after the expiration date on the label has passed. Using doxycycline can cause damage to your kidneys. What happens if I miss a dose? Take the medicine as soon as you can, but skip the missed dose if it is almost time for your next dose. Do not take two doses at one time. What happens if I overdose? Seek emergency medical attention or call the Poison Help line at . What should I avoid while taking doxycycline? Do not take iron supplements, multivitamins, calcium supplements, antacids, or laxatives within 2 hours before or after taking doxycycline. Avoid taking any other antibiotics with doxycycline unless your doctor has told you to. Doxycycline could make you sunburn more easily. Avoid sunlight or tanning beds. Wear protective clothing and use sunscreen (SPF 30 or higher) when you are outdoors. Antibiotic medicines can cause diarrhea, which may be a sign of a new infection. If you have diarrhea that is watery or bloody, call your doctor. Do not use anti-diarrhea medicine unless your doctor tells you to. What are the possible side effects of doxycycline? Get emergency medical help if you have signs of an allergic reaction (hives, difficult breathing, swelling in your face or throat) or a severe skin reaction (fever, sore throat, burning in your eyes,skin pain, red or purple skin rash that spreads and causes blistering and peeling). Seek medical treatment if you have a serious drug reaction that can affect many parts of your body.Symptoms may include: skin rash, fever, swollen glands, flu- like symptoms, muscle aches, severe weakness, unusual bruising, or yellowing of your skin or eyes. This reaction may occur several weeks after you began using doxycycline. Call your doctor at once if you have: severe stomach pain, diarrhea that is watery or bloody; throat irritation, trouble swallowing; chest pain, irregular heart rhythm, feeling short of breath; little or no urination; low white blood cell counts--fever, chills, swollen glands, body aches, weakness, pale skin, easy bruising or bleeding; increased pressure inside the skull--severe headaches, ringing in your ears, dizziness, nausea, vision problems, pain behind your eyes; or signs of liver or pancreas problems--loss of appetite, upper stomach pain (that may spread to your back), tiredness, nausea or vomiting, fast heart rate, dark urine, jaundice (yellowing of the skin or eyes). Common side effects may include: nausea, vomiting, upset stomach, loss of appetite; mild diarrhea; skin rash or itching; darkened skin color; or vaginal itching or discharge. This is not a complete list of side effects and others may occur. Call your doctor for medical advice about side effects. You may report side effects to FDA at 5-148-GYM-3998. What other drugs will affect doxycycline? Sometimes it is not safe to use certain medications at the same time. Some drugs can affect your blood levels of other drugs you take, which may increase side effects or make the medications less effective. Other drugs may affect doxycycline, including prescription and qofu-ikx-elezsid medicines, vitamins, and herbal products. Tell your doctor about all your current medicines and any medicine you start or stop using. Where can I get more information? Your pharmacist can provide more information about doxycycline. Remember, keep this and all other medicines out of the reach of children, never share your medicines with others, and use this medication only for the indication prescribed. Every effort has been made to ensure that the information provided by [employer]. [employer]') is accurate, up-to-date, and complete, but no guarantee is made to that effect. Drug information contained herein may be time sensitive. [employer] information has been compiled for use by healthcare practitioners and consumers in the [place] and therefore [employer] does not warrant that uses outside of the [place] are appropriate, unless specifically indicated otherwise. [employer] drug information does not endorse drugs, diagnose patients or recommend therapy. [employer] drug information isan informational resource designed to assist licensed healthcare practitioners in caring for their p atients and/or to serve consumers viewing this service as a supplement to, and not a substitute for, the expertise, skill, knowledge and judgment of healthcare practitioners. The absence of a warningfor a given drug or drug combination in no way should be construed to indicate that the drug or drug combination is safe, effective or appropriate for any given patient. [employer] does not assume any responsibility for any aspect of healthcare administered with the aid of information [employer] provides. The information contained herein is not intended to cover all possible uses, directions, precautions, warnings, drug interactions, allergic reactions, or adverse effects. If you have questions about the drugs you are taking, check with your doctor, nurse or pharmacist. Copyright 6532-7049 [employer]. Version: .. Revision Date: 07/18/2020. mupirocin topical (myoo PEER oh sin) [employer] What is the most important information I should know about mupirocin topical? Follow all directions on your medicine label and package. Tell each of your healthcare providers about all your medical conditions, allergies, and all medicines you use. What is mupirocin topical? Mupirocin is an antibiotic that prevents bacteria from growing on your skin. Mupirocin topical (for use on the skin) is used to treat skin infections such as impetigo (JW-hq-GIL-go) or a 'Staph' infection of the skin. Mupirocin topical may also be used for purposes not listed in this medication guide. What should I discuss with my healthcare provider before using mupirocin topical? You should not use this medicine if you are allergic to mupirocin. To make sure mupirocin topical is safe for you, tell your doctor if you have ever had: kidney disease. Do not use mupirocin topical on a child without medical advice. The cream should not be used on a child younger than 3 months old. The ointment may be used on a child as young as 2 months old. It is not known whether this medicine will harm an unborn baby. Tell your doctor if you are . It is not known whether mupirocin topical passes into breast milk or if it could harm a nursing baby. Tell your doctor if you are breast-feeding a baby. If you apply this medicine to your breast or nipple, wash the areas thoroughly before nursing your baby. How should I use mupirocin topical? Follow all directions on your prescription label. Do not use this medicine in larger or smaller amounts or for longer than recommended. Do not take by mouth. Topical medicine is for use only on the skin. If this medicine gets in your eyes, nose, or mouth, rinse with water. Wash your hands before and after applying mupirocin topical. Clean and dry the affected skin area. Use a cotton swab or gauze pad to apply a small amount of mupirocin topical as directed. Do not spread mupirocin topical over large areas of skin. Mupirocin topical is usually applied 3 times per day for 10 days. Use only a small amount of the medicine. Use a sterile gauze pad to cover the treated skin. Do not cover treated areas with a bandage, plastic wrap, or other covering that does not allow air to circulate. Call your doctor if your symptoms do not improve within 3 to 5 days, or if your skin condition getsworse. Use this medicine for the full prescribed length of time. Your symptoms may improve before the infection is completely cleared. Skipping doses may also increase your risk of further infection that isresistant to antibiotics. Store at room temperature away from moisture and heat. Do not freeze. Keep the medicine tube tightly closed when not in use. What happens if I miss a dose? Apply the missed dose as soon as you remember. Skip the missed dose if it is almost time for your next dose. Do not use extra medicine to make up the missed dose. What happens if I overdose? An overdose of mupirocin topical is not expected to be dangerous. Seek emergency medical attention or call the Poison Help line at if anyone has accidentally swallowed the medication. What should I avoid while using mupirocin topical? Antibiotic medicines can cause diarrhea, which may be a sign of a new infection. If you have diarrhea that is watery or bloody, call your doctor. Do not use anti-diarrhea medicine unless your doctor tells you to. Avoid getting this medicine in your eyes, mouth, or nose. A separate product called mupirocin nasalis made for use in the nose. Mupirocin topical is for use only on the skin. Avoid using other medications on the areas you treat with mupirocin topical unless your doctor tells you to. What are the possible side effects of mupirocin topical? Get emergency medical help if you have signs of an allergic reaction: hives; dizziness, fast or pounding heartbeats; wheezing, difficult breathing; swelling of your face, lips, tongue, or throat. Stop using this medicine and call your doctor at once if you have: severe stomach pain, diarrhea that is watery or bloody; severe itching, rash, or other irritation of treated skin; unusual skin blistering or peeling; or any signs of a new skin infection. Common side effects may include: burning, stinging; itching; or pain. This is not a complete list of side effects and others may occur. Call your doctor for medical advice about side effects. You may report side effects to FDA at 2-965-HUH-4161. What other drugs will affect mupirocin topical? It is not likely that other drugs you take orally or inject will have an effect on topically applied mupirocin. But many drugs can interact with each other. Tell each of your health care providers about all medicines you use, including prescription and trvl-jot-tezpmlk medicines, vitamins, and herbal products. Where can I get more information? Your pharmacist can provide more information about mupirocin topical. Remember, keep this and all other medicines out of the reach of children, never share your medicines with others, and use this medication only for the indication prescribed. Every effort has been made to ensure that the information provided by [employer]') is accurate, up-to-date, and complete, but no guarantee is made to that effect. Drug information contained herein may be time sensitive. [employer] information has been compiled for use by healthcare practitioners and consumers in the [place] and therefore [employer] does not warrant that uses outside of the [place] are appropriate, unless specifically indicated otherwise. [employer] drug information does not endorse drugs, diagnose patients or recommend therapy. [employer] drug information isan informational resource designed to assist licensed healthcare practitioners in caring for their p atients and/or to serve consumers viewing this service as a supplement to, and not a substitute for, the expertise, skill, knowledge and judgment of healthcare practitioners. The absence of a warningfor a given drug or drug combination in no way should be construed to indicate that the drug or drug combination is safe, effective or appropriate for any given patient. [employer] does not assume any responsibility for any aspect of healthcare administered with the aid of information [employer] provides. The information contained herein is not intended to cover all possible uses, directions, precautions, warnings, drug interactions, allergic reactions, or adverse effects. If you have questions about the drugs you are taking, check with your doctor, nurse or pharmacist. Copyright 5189-7758 [employer]. Version: 4.01. Revision Date: 02/02/2017. mupirocin topical (myoo PEER oh sin) [employer] What is the most important information I should know about mupirocin topical? Follow all directions on your medicine label and package. Tell each of your healthcare providers about all your medical conditions, allergies, and all medicines you use. What is mupirocin topical? Mupirocin is an antibiotic that prevents bacteria from growing on your skin. Mupirocin topical (for use on the skin) is used to treat skin infections such as impetigo (ZA-qa-GCK-go) or a 'Staph' infection of the skin. Mupirocin topical may also be used for purposes not listed in this medication guide. What should I discuss with my healthcare provider before using mupirocin topical? You should not use this medicine if you are allergic to mupirocin. To make sure mupirocin topical is safe for you, tell your doctor if you have ever had: kidney disease. Do not use mupirocin topical on a child without medical advice. The cream should not be used on a child younger than 3 months old. The ointment may be used on a child as young as 2 months old. It is not known whether this medicine will harm an unborn baby. Tell your doctor if you are . It is not known whether mupirocin topical passes into breast milk or if it could harm a nursing baby. Tell your doctor if you are breast-feeding a baby. If you apply this medicine to your breast or nipple, wash the areas thoroughly before nursing your baby. How should I use mupirocin topical? Follow all directions on your prescription label. Do not use this medicine in larger or smaller amounts or for longer than recommended. Do not take by mouth. Topical medicine is for use only on the skin. If this medicine gets in your eyes, nose, or mouth, rinse with water. Wash your hands before and after applying mupirocin topical. Clean and dry the affected skin area. Use a cotton swab or gauze pad to apply a small amount of mupirocin topical as directed. Do not spread mupirocin topical over large areas of skin. Mupirocin topical is usually applied 3 times per day for 10 days. Use only a small amount of the medicine. Use a sterile gauze pad to cover the treated skin. Do not cover treated areas with a bandage, plastic wrap, or other covering that does not allow air to circulate. Call your doctor if your symptoms do not improve within 3 to 5 days, or if your skin condition getsworse. Use this medicine for the full prescribed length of time. Your symptoms may improve before the infection is completely cleared. Skipping doses may also increase your risk of further infection that isresistant to antibiotics. Store at room temperature away from moisture and heat. Do not freeze. Keep the medicine tube tightly closed when not in use. What happens if I miss a dose? Apply the missed dose as soon as you remember. Skip the missed dose if it is almost time for your next dose. Do not use extra medicine to make up the missed dose. What happens if I overdose? An overdose of mupirocin topical is not expected to be dangerous. Seek emergency medical attention or call the Poison Help line at if anyone has accidentally swallowed the medication. What should I avoid while using mupirocin topical? Antibiotic medicines can cause diarrhea, which may be a sign of a new infection. If you have diarrhea that is watery or bloody, call your doctor. Do not use anti-diarrhea medicine unless your doctor tells you to. Avoid getting this medicine in your eyes, mouth, or nose. A separate product called mupirocin nasalis made for use in the nose. Mupirocin topical is for use only on the skin. Avoid using other medications on the areas you treat with mupirocin topical unless your doctor tells you to. What are the possible side effects of mupirocin topical? Get emergency medical help if you have signs of an allergic reaction: hives; dizziness, fast or pounding heartbeats; wheezing, difficult breathing; swelling of your face, lips, tongue, or throat. Stop using this medicine and call your doctor at once if you have: severe stomach pain, diarrhea that is watery or bloody; severe itching, rash, or other irritation of treated skin; unusual skin blistering or peeling; or any signs of a new skin infection. Common side effects may include: burning, stinging; itching; or pain. This is not a complete list of side effects and others may occur. Call your doctor for medical advice about side effects. You may report side effects to FDA at 4-453-WRS-6709. What other drugs will affect mupirocin topical? It is not likely that other drugs you take orally or inject will have an effect on topically applied mupirocin. But many drugs can interact with each other. Tell each of your health care providers about all medicines you use, including prescription and ntft-lrn-jofmhyg medicines, vitamins, and herbal products. Where can I get more information? Your pharmacist can provide more information about mupirocin topical. Remember, keep this and all other medicines out of the reach of children, never share your medicines with others, and use this medication only for the indication prescribed. Every effort has been made to ensure that the information provided by [employer]') is accurate, up-to-date, and complete, but no guarantee is made to that effect. Drug information contained herein may be time sensitive. [employer] information has been compiled for use by healthcare practitioners and consumers in the [place] and therefore [employer] does not warrant that uses outside of the [place] are appropriate, unless specifically indicated otherwise. [employer] drug information does not endorse drugs, diagnose patients or recommend therapy. [employer] drug information isan informational resource designed to assist licensed healthcare practitioners in caring for their p atients and/or to serve consumers viewing this service as a supplement to, and not a substitute for, the expertise, skill, knowledge and judgment of healthcare practitioners. The absence of a warningfor a given drug or drug combination in no way should be construed to indicate that the drug or drug combination is safe, effective or appropriate for any given patient. [employer] does not assume any responsibility for any aspect of healthcare administered with the aid of information [employer] provides. The information contained herein is not intended to cover all possible uses, directions, precautions, warnings, drug interactions, allergic reactions, or adverse effects. If you have questions about the drugs you are taking, check with your doctor, nurse or pharmacist. Copyright 3213-0259 [employer]. Version: 4.01. Revision Date: 02/02/2017. Education Materials Wound Care Taking proper care of your wound will help it heal. Your healthcare provider may show you how to clean and dress the wound. He or she will also explain how to tell if the wound is healing normally. If you are unsure of how to take care of the wound, be sure to clarify what dressing to use and how often you should change the bandages. Here are the basic steps. A wound that's not healing normally may be dark in color or have white streaks. Wash your hands Tips for washing your hands include: Use liquid soap and lather for 2 minutes. Scrub between your fingers and under your nails. Rinse with warm water, keeping your fingers pointing down. Use a paper towel to dry your hands and to turn off the faucet. Remove the used dressing Here are suggestions for removing the dressing: If dressing changes cause you pain, be sure to take your pain medicine as prescribed by your healthcare provider 30 minutes before dressing changes. Set up your supplies. Put on disposable gloves if you re dressing a wound for someone else or your wound is infected. Loosen the tape by pulling gently toward the wound. Gently take off the old dressing. If the dressing is stuck to the wound, moisten it with saline (ifavailable) or clean water. If you have a drain or tube in the wound, be careful not to pull on it. Remove the dressing 1 layer at a time and put it in a plastic bag. Seal the bag and put it in the trash. Remove your gloves. Inspect and dress the wound Check the wound carefully: Each time you change the dressing, check the wound carefully to be sure it s healing normally by making sure your wound appears to be pink and moist, and is free of infection. Wash your hands again. Put on a new pair of gloves. Clean and dress the wound as directed by your healthcare provider or nurse. Don't put anything in the wound that is not prescribed or directed by your healthcare provider. If you have a drain or tube, be careful not to pull on it. Make sure to secure the drain or tube as well. Put all unused supplies in a clean plastic bag. Seal the bag and store it in a clean, dry area between dressing changes. Be sure to wash your hands again. Call your healthcare provider Call your healthcare provider if you see any of the following signs of a problem: Bleeding that soaks the dressing [place] fluid weeping from the wound Increased drainage or drainage that is yellow, yellow-green, or foul-smelling Increased swelling or pain, or redness or swelling in the skin around the wound A change in the color of the wound, or if streaks develop in a direction away from the wound The area between any stitches opens up An increase in the size of the wound A fever of 100.4 F (38 C) or higher, or as directed by your healthcare provider Chills, increased fatigue, or a loss of appetite [id number] [employer]. [address] [place] [id number]. All rights reserved. This information is not intended as a substitute for professional medical care. Always follow yourhealthcare professional's instructions. Additional Information VACCINATE! IT SAVES LIVES! Members of the community who have not yet received the COVID-19 vaccine and would like to receive it can visit one of [facility] vaccine clinics. There are many vaccine clinic locations within the [facility]. For locations and available times, please visit [email or web address]/. It is important to note that some COVID mobile vaccine clinics are held outdoors and may be canceled in rainy or stormy conditions. To learn more about pediatric vaccinations (ages 5-11), we invite you to visit the [facility] webpage. [email or web address] learn more about the COVID-19 vaccine, we invite you to visit the CDC website for a list of frequently asked questions. https://www.cdc.gov/coronavirus/2019-ncov/vaccines/faq.html [employer] Patient Portal Access Instructions: Stay connected with your healthcare team and access your personal medical information anytime with the [employer] Patient Portal. If you would like a full copy of your medical records please contact the [facility] Medical Records Department Thursday through Thursday between 8a.m. and 4:30p.m. Please follow the directions below to access the portal: 1.Access the email account you provided upon registration to the [facility].2.Look for an invitation email from [facility].3.Open the email and access the invitation link: Accept Invitation to [employer]4.Fill in the required xiong to create your account. Sign into [email or web address] with your username and password that you created in the above steps to stay up to date. You can then view a summary of results, a summary of your visits, and the ability to download your summaries to your computer or send the information securely to a physician. Remember that your healthcare information is confidential, so carefully consider who you will allow to register on the [employer] Patient Portal for access to your information. You can also access the [employer] Patient Portal on the [employer]. Simply click on Health Records under [employer] and then click on the [employer] logo. HOW TO SAFELY DISPOSE OF PRESCRIPTION MEDICATIONS Please use one of the following methods to safely dispose of your unused medications. 1.Use a drug disposal kit: the drug disposal pouch allows you to safely discard your old and unuseddrugs. Ask your nurse to give you one when you are discharged.2.Visit a local take-back location: Many local pharmacies and police departments have programs that collect old and unwanted prescriptiondrugs. Call your local pharmacy or go to http://[email or web address]/[email or web address] to find one close to you.3.Make use of household items: Use cat litter or old coffee grounds to dispose medications if other options arenot available. Mix your drugs with these household products, seal them in an airtight container andthrow it into the garbage. Call [facility]: [phone] to be sure your drugs can be disposed of in this way. Some medicines may require a different approach.4.Never flush your medications down the toilet. IF YOU HAVE BEEN PRESCRIBED AN OPIOIDS FOR PAIN If you have been prescribed an opioid (such as hydrocodone, oxycodone or morphine), it is critical to understand the possible side effects and risks of opioid pain medications. Even when taken as directed, opioids can have several side effects including: Tolerance, meaning you might need to take more of a medication for the same pain relief. Nausea, vomiting and/or constipation. Sleepiness, dizziness, dry mouth, confusion, depression or itching. Physical dependence, meaning you have withdrawal symptoms when a medication is stopped ? this can develop within a few days. KNOW YOUR RESPONSIBILITIES It is important to know exactly how much and how often to take the opioid pain medications you are prescribed. Never take opioids in higher amounts or more often than prescribed. Do not combine opioids with alcohol or other drugs that cause drowsiness, such as benzodiazepines, also known as benzos,including diazepam and alprazolam, muscle relaxants or sleep aids. Never sell or share prescriptionopioids. This is illegal. Store opioids in a secure place and out of reach of others (including children, family, friends and visitors). The last page(s) of this document has been signed and retained as a CHART COPY Signatures Patient Education Materials Wound Care Medication Leaflets doxycycline (oral/injection), mupirocin topical, mupirocin topical My discharge plan and instructions have been reviewed and explained to me and I,SALLY VARGAS understand my current condition and have read and understand these discharge instructions. I have received a written copy of the plan/instructions. If I have questions, I am aware that I should contact my doctor. 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 Pt reports no transportation. Pt declined to reschedule and reports the pain is so severe in the breast she is going back to the ER. Lexy Desouza LPN [facility] Miscellaneous Notes* Telephone Encounter - Jigar Bernardo LPN - 01/14/2023 1:55 PM EDT Pt notified of same. Jigar Bernardo LPN * Telephone Encounter - Jigar Bernardo LPN - 01/14/2023 1:52 PM EDT ----- Message from Isabel Arias PA-C sent at 01/14/2023 11:43 AM EDT ----- Normal mammogram. Repeat in 1 year. [facility] Miscellaneous Notes* Letter - Mammography Coordinator - 01/14/2023 9:45 AM EDT January 15, 2023 PID: [id number] Sally Vargas [facility] [place] [address] Dear Ms. Vargas, We are pleased to inform you that the results of your recent breast imaging exam on 01/14/2023 are normal. Early detection of cancer is very important. We also understand recommendations regarding breast cancer screening are controversial. Please discuss with your primary care provider which strategy is best for you and whether a mammogram is right for you. Your imaging studies and report will be kept on file at [facility] as part of your permanent medical record and are available for your continuing care. Thank you for allowing us to help in meeting your health care needs. Sincerely, Dr. Rosenberg Interpreting Radiologist [facility] (Normal over 40) documented [facility] Note ORIGINAL EXAMINATION: SOFT TISSUE ULTRASOUND OF THE LEFT BREAST 01/07/2023 1:55 pm COMPARISON: None HISTORY: ORDERING SYSTEM PROVIDED HISTORY: Reason for Exam: concern for abscess. Left breast wound approximately 7 cm from the nipple. FINDINGS: Ultrasound of the left breast at the 2 o'clock position in the area of the patient's wound was performed. There is no drainable fluid collection or mass. There is skin thickening and erythema in the area. IMPRESSION: No drainable fluid collection in the area of clinical concern. A bilateral diagnostic mammogram is recommended on a non emergent basis. I have personally reviewed the images of this examination and agree with the resident's findings and interpretation. Interpreted by: Alice Carvajal MD Preliminary Report By: Joe Forbes Electronically signed By Alice Carvajal MD Dictated Date: 01/07/2023 2:39:52 PM Prelim Date: 01/07/2023 3:15:06 PM Sign Date: 01/07/2023 3:23:54 PM [facility]ing [facility] Note ORIGINAL EXAMINATION: SOFT TISSUE ULTRASOUND OF THE LEFT BREAST 01/07/2023 1:55 pm COMPARISON: None HISTORY: ORDERING SYSTEM PROVIDED HISTORY: Reason for Exam: concern for abscess. Left breast wound approximately 7 cm from the nipple. FINDINGS: Ultrasound of the left breast at the 2 o'clock position in the area of the patient's wound was performed. There is no drainable fluid collection or mass. There is skin thickening and erythema in the area. IMPRESSION: No drainable fluid collection in the area of clinical concern. A bilateral diagnostic mammogram is recommended on a non emergent basis. I have personally reviewed the images of this examination and agree with the resident's findings and interpretation. Interpreted by: Alice Carvajal MD Preliminary Report By: Joe Forbes Electronically signed By Alice Carvajal MD Dictated Date: 01/07/2023 2:39:52 PM Prelim Date: 01/07/2023 3:15:06 PM Sign Date: 01/07/2023 3:23:54 PM Ordering Provider: ETHAN [facility]04-26-2023 History of Present illness Narrative* Nasrin Dunlap PA-C - 01/07/2023 11:50 AM EDT Images from the original note were not included. This note was created using [employer]. Subjective Sally Vargas is a 42 year old female. HPI Patient presents with an infection on the left breast over the past week. She has had increased pain, some nausea over the past couple of days. She has a history of a breast abscess on that breast 2 years ago and was admitted at [place]. A culture that was performed here was positive for Staph aureus. She denies a fever. She is not breast-feeding. She has had some drainage from the area. Review of Systems Constitutional: Negative. HENT: Negative. Respiratory: Negative. Cardiovascular: Negative. Gastrointestinal: Negative. Skin: Left breast abscess All other systems reviewed and are negative. PAST MEDICAL HISTORY Diagnosis Date Allergic rhinitis, cause unspecified 05/17/2008 Spring and summer Benign liver cyst 05/24/2010 CT scan at [facility] 11/2009 and 04/2010 showe 4 mm increase in size. No pain. No elevated LFTs on 03/11/2010. Calculus of kidney 05/17/[address] Nicolas: Hospitalized age 20, and again later -- no procedures so far ([facility], [address] [facility]) Cancer (HCC) COVID-19 virus infection 10/07/202109/2021 Diverticulosis Dysmenorrhea Hemorrhoids History of blood transfusion Impaired fasting glucose 05/17/2008 Sugar 104 fasting, 04/21 Marijuana use 07/10/2020 ER visit 07/06/2020, [place] MIGRAINE 05/17/2008 Has used imitrex with good response; Keeps Vicodin on hand when needed; Ovarian cyst 07/15/2012 Pancreatitis Smoker 05/17/2008 Started age 26, 1/2 a PPD Current Outpatient Medications Medication Sig Dispense Refill montelukast (SINGULAIR) 10 mg tablet Take 1 tablet by mouth daily at bedtime. 30 tablet 2 fluticasone propionate (FLOVENT DISKUS) 250 mcg/actuation inhaler Inhale 2 Puffs as instructed twice daily. Rinse mouth after use 60 Each 1 gabapentin (NEURONTIN) 800 mg tablet TAKE 1 TABLET BY MOUTH THREE TIMES A DAY 90 tablet 2 albuterol HFA (VENTOLIN HFA) 90 mcg/actuation inhaler Inhale 2 Puffs as instructed every 4 hours asneeded for wheezing/shortness of breath. 1 Each 1 cholecalciferol, Vitamin D3, (VITAMIN D3) 1,250 mcg (50,000 unit) cap capsule Take 1 capsule by mouth one time a week. 12 capsule 0 cyanocobalamin (VITAMIN B-12) 1,000 mcg tab Take 1 tablet by mouth once daily. 30 tablet 11 atorvastatin (LIPITOR) 10 mg tablet Take 1 tablet by mouth daily at bedtime. For cholesterol. 30 tablet 5 QUEtiapine (SEROQUEL) 50 mg tablet Take 50 mg by mouth daily at bedtime. pantoprazole DR (PROTONIX) 40 mg tablet Take 1 tablet by mouth once daily. Take on empty stomach, 1/2 hr before meal. 30 tablet 5 diphenhydrAMINE (BENADRYL) 25 mg capsule Take 50 mg by mouth at bedtime as needed. methylPREDNISolone (MEDROL, JO,) 4 mg Dose-Pack As Instructed per package (Patient not taking: Reported on 01/07/2023) 21 tablet 0 No current facility-administered medications for this visit. 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, mild esophagitis, 2 cm hiatal hernia EGD W/O BRSH SPEC VARICIES INJ 05/28/2020 LIG/TRNSXJ FLP TUBE ABDL/VAG APPR UNI/BI OOPHORECTOMY PARTIAL/TOTAL UNI/BI 2009 Oophorectomy right, still has left OOPHORECTOMY PARTIAL/TOTAL UNI/BI 01/2015 left removed PAST SURGICAL HISTORY OF uterine ablation PAST SURGICAL HISTORY OF cyst removal TOTAL ABDOMINAL HYSTERECT W/WO RMVL TUBE OVARY 08/31/2006 Hysterectomy, MICHELINE FAMILY HISTORY Problem Relation Age of Onset Thyroid Mother unsure of details Arthritis Mother fibromyalgia Blood Disease Mother blood clots, unsure of details (aorta?) No Known Problems Father No Known Problems Sister No Known Problems Sister No Known Problems Brother Diabetes Maternal Grandmother Diabetes Maternal Grandfather Lipids Maternal Grandfather Stroke Maternal Grandfather Coronary Artery Disease Maternal Grandfather Cataract Maternal Grandfather Pancreatic Cancer Maternal Grandfather Diabetes Paternal Grandmother Diabetes Paternal Grandfather Coronary Artery Disease Paternal Grandfather No Known Problems Son No Known Problems Son Breast Cancer Maternal Aunt Lipids Maternal Uncle Coronary Artery Disease Maternal Uncle other (ovarian ca) Other maternal cousin Colon Cancer No Family History Social History Tobacco Use Smoking status: Former Packs/day: 0.50 Years: 3.00 Pack years: 1.50 Types: Cigarettes Quit date: 01/12/2017 Years since quittin.9 Smokeless tobacco: Never Tobacco comments: Approx. 3 cigarettes daily-1 pack every week Vaping Use Vaping Use: Never used Substance Use Topics Alcohol use: Yes Comment: Occasional Drug use: Never Objective BP 122/72 Pulse 100 Temp 36.6 C (97.8 F) Resp 18 Wt 98.9 kg (218 lb) LMP 08/10/2006 SpO2 96% BMI 40.63 kg/m Physical Exam Vitals reviewed. Constitutional: Appearance: Normal appearance. HENT: Head: Normocephalic and atraumatic. Chest: Comments: Patient has a large area of erythema with tenderness to palpation to the lateral left breast. Central open wound. No obvious drainage. Patient hesitant for full exam due to pain with palpation. No lymphangitic streaking. Neurological: Mental Status: She is alert. Assessment and Plan ASSESSMENT/PLAN: 1. Breast infection - ICD9: 611.0, ICD10: N61.0 Discussed with patient I cannot rule out a breast abscess and is not actively draining here. I had called and spoke with Ashlyn Nolasco PA-C with general surgery and they were able to get her in tomorrow to see Dr. Wagner at noon and recommended I start oral antibiotics until then. Patient did not have a ride to get there tomorrow so refused to follow up tomorrow. Discussed oral antibiotics wouldn't take care of an abscess if there was one deeper and not safe to just discharge on oral antibioticswithout adequate followup. She elected to go to the ED. Nasrin Dunlap PA-C [facility] Hospital Discharge instructions Patient Education 01/04/2023 12:33:52 Headache, Migraine, Classic Migraine Headache This often severe type of headache is different from other types of headaches in that symptoms other than pain occur with the headache. Nausea and vomiting, lightheadedness, sensitivity to light (photophobia), and other visual disturbances are common migraine symptoms. The pain may last from a few hours to several days. It is not clear why migraines occur but certain factors called triggers can raise the risk of having a migraine attack. A migraine may be triggered by emotional stress or depression, or by hormone changes during the menstrual cycle. Other triggers include control pills, overuse of migraine medicines, alcohol or caffeine, foods with tyramine (such as aged cheese and wine), eyestrain, weather changes, missed meals, or too little or too much sleep. Home care Follow these tips when taking care of yourself at home: Don t drive yourself home if you were given pain medicine for your headache or are having visual symptoms. Instead, have someone else drive you home. Try to sleep when you get home. You should feel much better when you wake up. Cold can help ease migraine symptoms. Put an ice pack on your forehead or at the base of your skull. Put heat on the back of your neck to help ease any neck spasm. Drink only clear liquids or eat a light diet until your symptoms get better. This will help you avoid nausea and vomiting. How to prevent migraines Pay attention to what seems to trigger your headache. Try to avoid the triggers when you can. If you have frequent headaches, consider keeping a headache diary. In it, write down what you were doing,feeling, or eating in the hours before each headache. Show this to your healthcare provider to helpfind the cause of your headaches. If stress seems to be a trigger for your headaches, figure out what is causing stress in your life.Learn new ways to handle your stress. Ideas include regular exercise, biofeedback, self-hypnosis, yoga, and meditation. Talk with your healthcare provider to find out more information about managing stress. Many books and digital media are also available on this subject. Tyramine is a substance found in many foods. It can trigger a migraine in some people. These foods contain tyramine: Chocolate Yogurt All cheeses, but especially aged cheeses Smoked or pickled fish and meat, including claire, caviar, bologna, pepperoni, and salami Liver Avocados Bananas Figs Raisins Red wine Try staying away from these foods for 1 to 2 months to see if you have fewer headaches. How to treat future headaches Take time out at the first sign of a headache, if possible. Find a quiet, dark, comfortable place to sit or lie down. Let yourself relax or sleep. Put an ice pack on your forehead or on the area of greatest pain. A heating pad and massage may help if you are having a muscle spasm and tightness in your neck. If you have been prescribed a medicine to stop a migraine headache, use this at the first warning sign of the headache for best results. First signs may be an aura or pain. If you need to take medicine often for your migraine, talk with your healthcare provider about other ways to prevent your headaches. Follow-up care Follow up with your healthcare provider, or as advised. Talk with your provider if you have frequent headaches. He or she can figure out a treatment plan. Ask if you can have medicine to take at homethe next time you get a bad headache. This may keep you from having to visit the emergency department in the future. You may need to see a headache specialist (neurologist) if you continue to have headaches. When to seek medical advice Call your healthcare provider right away if any of these occur: Your head pain gets worse, or doesn t get better within 24 hours You can t keep liquids down (repeated vomiting) Pain in your sinuses, ears, or throat Fever of 100.4 F (38 C) or higher, or as directed by your healthcare provider Stiff neck Extreme drowsiness, confusion, or fainting Dizziness, or dizziness with spinning sensation (vertigo) Weakness in an arm or leg, or on one side of your face Difficulty talking or seeing [id number] [employer]. [address] [place] [address]. All rights reserved. This information is not intended as a substitute for professional medical care. Always follow yourhealthcare professional's instructions. Follow Up Care 01/04/2023 12:06:58 With:[facility] Address:Unknown When:2-4 days Comments:Schedule appointment as soon as possibleIncrease diet from pedialyte to brat to full With:MARCELINO ALBERT Address: [address] [place], [place] [id number]- [employer] (1) When:2-4 days [facility] 04-23-2023 Emergency department Discharge summary Discharge Instructions Thank you for allowing [place] to assist you with your healthcare needs. The following is importantdischarge information regarding your hospital visit. Diagnosis from Today's Visit Migraine Headache What to Do Next Instructions from Your Care Team No qualifying data available. Post Acute Orders No qualifying data available. You Need to Schedule the Following Appointments Follow Up with [facility] When Within 2-4 days Why: Schedule appointment as soon as possible Increase diet from pedialyte to brat to full Follow Up with MARCELINO ALBERT When Within 2-4 days Where: [facility] [place], [place] [address] (1) Allergies Advil Contrast dye Flagyl Motrin NSAIDS Toradol Toradol IV/IM Zofran aspirin penicillin Medications Please ask your primary doctor or pharmacist before taking any other medication not listed, including over the counter drugs, herbal medications, vitamins and or supplements as they may interact withyour home medications. What How Much When Why Instructions Last Dose Unchanged acetaminophen- hydrocodone (Acushnet 325- 5 mg oral tablet) 1 tab(s) by mouth Every 6 hours as needed for as needed for pain Abdominal pain Duration: 3 Days Unchanged acetaminophen-hydrocodone (Acushnet 325- 5 mg oral tablet) 1 tab(s) by mouth Every 6 hours Cellulitis Duration: 3 Days Unchanged acetaminophen-hydrocodone (Acushnet 325- 5 mg oral tablet) 1 tab(s) by mouth Every 6 hours as needed for as needed for pain Kidney stone Duration: 3 Days Unchanged busPIRone (busPIRone 10 mg oral tablet) 1 tab(s) by mouth Three (3) times a day Unchanged cephalexin (cephalexin 500 mg oral capsule) 1 cap by mouth Two (2) times a day Kidney stone Duration: 7 Days Unchanged estradiol (estradiol 0.5 mg oral tablet) 1 tab(s) by mouth Once a day Unchanged gabapentin (gabapentin 400 mg oral capsule) 1 cap by mouth Once a day as needed for Muscle pain Unchanged hydrOXYzine (hydrOXYzine hydrochloride 25 mg oral tablet) 1 tab(s) by mouth Four (4) times a day as needed for for itching Unchanged mirtazapine (mirtazapine 30 mg oral tablet) 1 tab(s) by mouth Daily at bedtime Unchanged nystatin (nystatin 100,000 units/ mL oral suspension) Unchanged OXcarbazepine (OXcarbazepine 300 mg oral tablet) 2 tab(s) by mouth Two (2) times a day Unchanged PARoxetine (PARoxetine 10 mg oral tablet) 1 tab(s) by mouth Once a day Unchanged prazosin (prazosin 1 mg oral capsule) Unchanged promethazine (Phenergan ORAL use promethazine ) 25 Milligram by mouth Every 4 hours Abdominal pain Unchanged promethazine (promethazine 25 mg oral tablet) 1 tab(s) by mouth Every 4 hours as needed for as needed for nausea/vomiting Kidney stone Unchanged promethazine (promethazine 25 mg oral tablet) Unchanged QUEtiapine (SEROquel 100 mg oral tablet) 1 tab(s) by mouth Daily at bedtime Unchanged sertraline (Zoloft 100 mg oral tablet) 1 tab(s) by mouth Once a day Unchanged sucralfate (sucralfate 1 g oral tablet) 1 tab(s) by mouth Two (2) times a day Unchanged tamsulosin (Flomax 0.4 mg oral capsule) 1 cap by mouth Once a day Duration: 5 Days Unchanged triamcinolone topical (triamcinolone 0.1% topical paste) Please take this list to your next doctor s visit. Bring all medications you take, including over the counter medications, herbals and other supplements with you to your doctor s visit. Patients and families are reminded to discard old lists and to update any records with all medication providers or retail pharmacies. Education Materials Migraine Headache This often severe type of headache is different from other types of headaches in that symptoms other than pain occur with the headache. Nausea and vomiting, lightheadedness, sensitivity to light (photophobia), and other visual disturbances are common migraine symptoms. The pain may last from a few hours to several days. It is not clear why migraines occur but certain factors called triggers can raise the risk of having a migraine attack. A migraine may be triggered by emotional stress or depression, or by hormone changes during the menstrual cycle. Other triggers include control pills, overuse of migraine medicines, alcohol or caffeine, foods with tyramine (such as aged cheese and wine), eyestrain, weather changes, missed meals, or too little or too much sleep. Home care Follow these tips when taking care of yourself at home: Don t drive yourself home if you were given pain medicine for your headache or are having visual symptoms. Instead, have someone else drive you home. Try to sleep when you get home. You should feel much better when you wake up. Cold can help ease migraine symptoms. Put an ice pack on your forehead or at the base of your skull. Put heat on the back of your neck to help ease any neck spasm. Drink only clear liquids or eat a light diet until your symptoms get better. This will help you avoid nausea and vomiting. How to prevent migraines Pay attention to what seems to trigger your headache. Try to avoid the triggers when you can. If you have frequent headaches, consider keeping a headache diary. In it, write down what you were doing,feeling, or eating in the hours before each headache. Show this to your healthcare provider to helpfind the cause of your headaches. If stress seems to be a trigger for your headaches, figure out what is causing stress in your life.Learn new ways to handle your stress. Ideas include regular exercise, biofeedback, self-hypnosis, yoga, and meditation. Talk with your healthcare provider to find out more information about managing stress. Many books and digital media are also available on this subject. Tyramine is a substance found in many foods. It can trigger a migraine in some people. These foods contain tyramine: Chocolate Yogurt All cheeses, but especially aged cheeses Smoked or pickled fish and meat, including claire, caviar, bologna, pepperoni, and salami Liver Avocados Bananas Figs Raisins Red wine Try staying away from these foods for 1 to 2 months to see if you have fewer headaches. How to treat future headaches Take time out at the first sign of a headache, if possible. Find a quiet, dark, comfortable place to sit or lie down. Let yourself relax or sleep. Put an ice pack on your forehead or on the area of greatest pain. A heating pad and massage may help if you are having a muscle spasm and tightness in your neck. If you have been prescribed a medicine to stop a migraine headache, use this at the first warning sign of the headache for best results. First signs may be an aura or pain. If you need to take medicine often for your migraine, talk with your healthcare provider about other ways to prevent your headaches. Follow-up care Follow up with your healthcare provider, or as advised. Talk with your provider if you have frequent headaches. He or she can figure out a treatment plan. Ask if you can have medicine to take at homethe next time you get a bad headache. This may keep you from having to visit the emergency department in the future. You may need to see a headache specialist (neurologist) if you continue to have headaches. When to seek medical advice Call your healthcare provider right away if any of these occur: Your head pain gets worse, or doesn t get better within 24 hours You can t keep liquids down (repeated vomiting) Pain in your sinuses, ears, or throat Fever of 100.4 F (38 C) or higher, or as directed by your healthcare provider Stiff neck Extreme drowsiness, confusion, or fainting Dizziness, or dizziness with spinning sensation (vertigo) Weakness in an arm or leg, or on one side of your face Difficulty talking or seeing [id number] [employer] [address] [place] [address], [place] [address]. All rights reserved. This information is not intended as a substitute for professional medical care. Always follow yourhealthcare professional's instructions. Additional Information VACCINATE! IT SAVES LIVES! Members of the community who have not yet received the COVID-19 vaccine and would like to receive it can visit one of [facility] vaccine clinics. There are many vaccine clinic locations within the [facility]. For locations and available times, please visit www.gettheshot.coronavirus.[place].gov/. It is important to note that some COVID mobile vaccine clinics are held outdoors and may be canceled in rainy or stormy conditions. To learn more about pediatric vaccinations (ages 5-11), we invite you to visit the [facility] webpage. [email or web address]/[email or web address] [email or web address] learn more about the COVID-19 vaccine, we invite you to visit the CDC website for a list of frequently asked questions. https://www.cdc.gov/coronavirus/2019-ncov/vaccines/faq.html [facility] Patient Portal Access Instructions: Stay connected with your healthcare team and access your personal medical information anytime with the [facility] Patient Portal. If you would like a full copy of your medical records please contact the [facility] Medical Records Department Thursday through Thursday between 8a.m. and 4:30p.m. Please follow the directions below to access the portal: 1.Access the email account you provided upon registration to the hospital.2.Look for an invitation email from [facility].3.Open the email and access the invitation link: Accept Invitation to [facility]4.Fill in the required xiong to create your account. Sign into [email or web address] with your username and password that you created in the above steps to stay up to date. You can then view a summary of results, a summary of your visits, and the ability to download your summaries to your computer or send the information securely to a physician. Remember that your healthcare information is confidential, so carefully consider who you will allow to register on the [facility] Patient Portal for access to your information. You can also access the [facility] Patient Portal on the [employer] mini. Simply click on Health Records under [employer] and then click on the [facility] logo. HOW TO SAFELY DISPOSE OF PRESCRIPTION MEDICATIONS Please use one of the following methods to safely dispose of your unused medications. 1.Use a drug disposal kit: the drug disposal pouch allows you to safely discard your old and unuseddrugs. Ask your nurse to give you one when you are discharged.2.Visit a local take-back location: Many local pharmacies and police departments have programs that collect old and unwanted prescriptiondrugs. Call your local pharmacy or go to http://Vidiowiki.[employer] Tech/3L8Un4x to find one close to you.3.Make use of household items: Use cat litter or old coffee grounds to dispose medications if other options arenot available. Mix your drugs with these household products, seal them in an airtight container andthrow it into the garbage. Call [facility]: [phone] to be sure your drugs can be disposed of in this way. Some medicines may require a different approach.4.Never flush your medications down the toilet. IF YOU HAVE BEEN PRESCRIBED AN OPIOIDS FOR PAIN If you have been prescribed an opioid (such as hydrocodone, oxycodone or morphine), it is critical to understand the possible side effects and risks of opioid pain medications. Even when taken as directed, opioids can have several side effects including: Tolerance, meaning you might need to take more of a medication for the same pain relief. Nausea, vomiting and/or constipation. Sleepiness, dizziness, dry mouth, confusion, depression or itching. Physical dependence, meaning you have withdrawal symptoms when a medication is stopped ? this can develop within a few days. KNOW YOUR RESPONSIBILITIES It is important to know exactly how much and how often to take the opioid pain medications you are prescribed. Never take opioids in higher amounts or more often than prescribed. Do not combine opioids with alcohol or other drugs that cause drowsiness, such as benzodiazepines, also known as benzos,including diazepam and alprazolam, muscle relaxants or sleep aids. Never sell or share prescriptionopioids. This is illegal. Store opioids in a secure place and out of reach of others (including children, family, friends and visitors). The last page(s) of this document has been signed and retained as a CHART COPY Signatures Patient Education Materials Headache, Migraine, Classic Medication Leaflets My discharge plan and instructions have been reviewed and explained to me and ISAM NICHOLE L understand my current condition and have read and understand these discharge instructions. I have received a written copy of the plan/instructions. If I have questions, I am aware that I should contact my doctor. 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 * Telephone Encounter - Merced Hutchinson APRN.CNP - 12/26/2022 2:47 PM EDT Will send in cough syrup that patient is requesting for short supply to use until able to start Flovent * Telephone Encounter - Sallie Benietz LPN - 12/26/2022 2:28 PM EDT Called [facility] in [place] and was told insurance does cover it however they do not have it in stock and it was ordered but will not arrive until Thursday. Called [facility] in [place] and was told not in stock and will not arrive until Thursday. * Telephone Encounter - Merced Hutchinson APRN.CNP - 12/26/2022 12:47 PM EDT Please let her know I sent in Flovent in place of the Dulera. Thanks * Telephone Encounter - Paradise Haley RN - 12/26/2022 12:27 PM EDT Patient calls and states that insurance will not cover the inhaler sent. Patient asking if providercan send in prescription for cough medication that was talked about at appointment. [facility] Paradise [facility]aley RN [facility] Miscellaneous Notes* Telephone Encounter - Nunu Carcamo RN - 12/26/2022 8:21 AM EDT Patient phoned back and states she changed her mind, she will take the opening with Merced. Same day appt scheduled. * Telephone Encounter - Nunu Carcamo RN - 12/26/2022 8:07 AM EDT Patient requesting VV with [facility], for her cough and cold s/s, states she thinks she has bronchitis, and OTC medications not helping. No open appts with [facility] and advised patient she wouldneed to be seen in person, in order for provider to listen to her lungs. Offered same day appt withLarry Brown, since patient is scheduled to est care with her. Patient declined offer due to available time doesn't work for her and states she will go to for evaluation. [facility] Hospital Discharge instructions Patient Education 12/24/2022 21:03:31 Kidney Stone, Undescended (No Symptoms) Kidney Stone, Undescended, No Symptoms A kidney stone (nephrolithiasis) begins as tiny crystals that form inside the kidney where urine ismade. Most kidney stones enlarge to about 1/8 to 1/4 inch in size before leaving the kidney and moving toward the bladder. There are 4 types of kidney stones. Eighty percent are calcium stones mostlycalcium oxalate but also some with calcium phosphate. The other 3 types include uric acid stones, struvite stones (from a preceding infection), and rarely, cystine stones. When the stone breaks free and begins to move down the ureter (the narrow tube joining the kidney to the bladder) it often causes sharp back and side pain, often with nausea and vomiting. When the stone reaches the bladder, the pain stops. Once in your bladder, the kidney stone may pass through theurethra (urinary opening) while you are urinating (which may cause pain to start again). Or, it maybreak into such small fragments that you don t notice it passing. Your kidney stone is still inside the kidney. There is no way to predict how long it will be beforeit breaks free and causes any symptoms. Most stones will pass on their own within a few hours to a few days (sometimes longer). You may notice a red, pink, or brown color to your urine. This is normal while passing a kidney stone. A large stone may not pass on its own and may require special procedures to remove it. These procedures include lithotripsy, which uses ultrasound waves to break up thestone; ureteroscopy, which pushes a thin, basket-like instrument through the urethra and bladder and into the ureter to pull out the stone; and various types of direct surgery through the skin. Home care The following guidelines will help you care for yourself at home: Drink plenty of fluids. This increases urine flow and reduces the risk of further stone formation. Healthy adults (no heart/liver/kidney disease) who have had a kidney stone should drink 12, 8-ounce glasses of fluids per day. Most of this should be water. The goal is to produce 1.5 to 2 quarts of almost colorless urine per 24 hours. You should collect your urine in a container and then drain it through a strainer to collect any stones or pieces of stones. Take these to your healthcare provider to help identify your specific typeof stone to aid in future treatment and dietary changes. Try to stay as active as possible since this will help the stone pass. Don't stay in bed unless youhave pain that prevents you from getting up. If you develop pain, you may take ibuprofen or naproxen for pain, unless another medicine was prescribed. If you have chronic liver or kidney disease or ever had a stomach ulcer or GI bleeding, talk with your healthcare provider before using these medicines. Prevention Each year, there is a 5% to 10% chance that a new stone will form (50% chance over the next 5 to 7 years). The risk is higher if you have a family history of kidney stones or have certain chronic illnesses such as hypertension, obesity, or diabetes. However, there are lifestyle and dietary changes that you can make to reduce the risk of a recurrence. Most kidney stones are made of calcium. The following is advice for preventing a recurrence of calcium stones. If you don t know the type of stone you have, follow this advice until the cause of yourstone is determined. Things that help: The most important thing you can do is to drink plenty of fluids each day, as described above. Certain foods, such as wheat, rice, rye, barley and beans, contain phytate, a compound that may lower the risk of recurrence of any type of stone. Eat more fruits and vegetables (especially those high in potassium). Eat foods high in natural citrate like fruit and fruit juices (using low sugar). Low calcium contributes to the formation of calcium type kidney stones. Eat a normal calcium diet and speak with your doctor if you are taking calcium supplements. It may be detrimental to reduce your calcium intake. New research shows that eating calcium-rich and oxalate-rich foods together lowersyour risk of stones by binding the minerals in the stomach and intestines before they can reach thekidneys. Limit salt intake to 2 grams (1 teaspoon) per day. Use limited amounts when cooking, and don t add salt at the table. Processed and canned foods are usually high in salt. Spinach, rhubarb, peanuts, cashews and almonds, grapefruit and grapefruit juice are all high oxalate foods and should be reduced, or eaten with calcium rich foods. These foods include dairy, dark leafy greens, soy products, and calcium enriched foods. Reducing the amount of animal meat in your diet may lower your risk of uric acid stones. Don't have excess sugar (sucrose) and fructose (sweetener in many soft drinks) in your diet. If you take vitamin C as a supplement, do not take more than 1,000 milligrams (mg) per day. A dietitian or your healthcare provider can provide you with specific details about dietary changesto prevent kidney stone recurrence. Follow-up care Follow up with your healthcare provider, or as advised. Talk with your healthcare provider about urine and blood tests to find out the cause of your stone. If you had an X-ray, CT scan, or other diagnostic test, you will be notified of any findings that may affect your care. Call 911 Call 911 if you have any of these: Weakness, dizziness, or fainting When to seek medical advice Call your healthcare provider right away if any of the these occur: Severe sharp back or side pain Repeated vomiting or unable to keep down fluids Fever of 100.4 F (38 C) or higher, or as directed by your health care provider Blood (pink or red color) in your urine Foul smelling or cloudy urine Unable to pass urine for 8 hours or increasing bladder pressure [id number] [employer] [address] [place] [address], [place] [address]. All rights reserved. This information is not intended as a substitute for professional medical care. Always follow yourhealthcare professional's instructions. 12/24/2022 21:03:22 Abdominal Pain Abdominal Pain Abdominal pain is pain in the stomach or belly area. Everyone has this pain from time to time. In many cases it goes away on its own. But abdominal pain can sometimes be due to a serious problem, such as appendicitis. So it s important to know when to get help. Causes of abdominal pain There are many possible causes of abdominal pain. Common causes in adults include: Constipation, diarrhea, or gas Stomach acid flowing back up into the esophagus (acid reflux or heartburn) Severe acid reflux, called GERD (gastroesophageal reflux disease) A sore in the lining of the stomach or small intestine (peptic ulcer) Inflammation of the gallbladder, liver, or pancreas Gallstones or kidney stones Appendicitis Intestinal blockage An internal organ pushing through a muscle or other tissue (hernia) Urinary tract infections In women, menstrual cramps, fibroids, ovarian cysts, pelvic inflammatory disease, or endometriosis Inflammation or infection of the intestines, including Crohn's disease and ulcerative colitis Irritable bowel syndrome Diagnosing the cause of abdominal pain Your healthcare provider will give you a physical exam help find the cause of your pain. If needed,you will have tests. Belly pain has many possible causes. So it can be hard to find the reason for your pain. Giving details about your pain can help. Tell your provider where and when you feel the pain, and what makes it better or worse. Also let your provider know if you have other symptoms such as: Fever Tiredness Upset stomach (nausea) Vomiting Changes in bathroom habits Blood in the stool or black, tarry stool Weight loss that you can't explain (involuntary weight loss?) Also report any family history of stomach or intestinal problems, or cancers. Tell your provider about all your alcohol use and drug use. Tell your provider about all medicines you use, including herbs, vitamins, and supplements. Treating abdominal pain Some causes of pain need emergency medical treatment right away. These include appendicitis or a bowel blockage. Other problems can be treated with rest, fluids, or medicines. Your healthcare provider can give you specific instructions for treatment or self-care based on what is causing your pain. If you have vomiting or diarrhea, sip water or other clear fluids. When you are ready to eat solid foods again, start with small amounts of thhd-pi-spzzxd, low- fat foods. These include apple sauce, toast, or crackers. When to get medical care Call 911 or go to the hospital right away if you: Can t pass stool and are vomiting Are vomiting blood or have bloody diarrhea or black, tarry diarrhea Have chest, neck, or shoulder pain Feel like you might pass out Have pain in your shoulder blades with nausea Have sudden, severe belly pain Have new, severe pain unlike any you have felt before Have a belly that is rigid, hard, and hurts to touch Call your healthcare provider if you have: Pain for more than 5 days Bloating for more than 2 days Diarrhea for more than 5 days A fever of 100.4 F (38 C) or higher, or as directed by your healthcare provider Pain that gets worse Weight loss for no reason Continued lack of appetite Blood in your stool How to prevent abdominal pain Here are some tips to help prevent abdominal pain: Eat smaller amounts of food at each meal. Don't eat greasy, fried, or other high-fat foods. Don't eat foods that give you gas. Exercise regularly. Drink plenty of fluids. To help prevent GERD symptoms: Quit smoking. Reduce alcohol and foods that increase stomach acid. Don't use aspirin or ewza-djq-sodnhud pain and fever medicines, if possible. This includes nonsteroidal anti-inflammatory drugs (NSAIDs). Lose excess weight. Finish eating at least 2 hours before you go to bed or lie down. Raise the head of your bed. [id number] [employer] [address] [place] [address], [place] [address]. All rights reserved. This information is not intended as a substitute for professional medical care. Always follow yourhealthcare professional's instructions. Follow Up Care 12/24/2022 19:35:27 With:Follow up with primary care provider Address:Unknown When:2-4 days [facility] 04-12-2023 Note ORIGINAL EXAMINATION: CT OF THE ABDOMEN AND PELVIS WITHOUT CONTRAST 12/24/2022 8:33 pm TECHNIQUE: CT of the abdomen and pelvis was performed without the administration of intravenous contrast. Multiplanar reformatted images are provided for review. Automated exposure control, iterative reconstruction, and/or weight based adjustment of the mA/kV was utilized to reduce the radiation dose to as low as reasonably achievable. COMPARISON: None. HISTORY: ORDERING SYSTEM PROVIDED HISTORY: Reason for Exam: R flank pain, h/o kidney stones, liver cysts FINDINGS: Lower Chest: The included lung bases are clear. Trace pericardial fluid. Organs: Multiple scattered hepatic cysts. The largest is seen within the left hepatic lobe measuring up to 3.4 cm. Surgically absent gallbladder. Unremarkable spleen, adrenal glands, and pancreas. The kidneys are symmetric in size. Punctate nonobstructive right upper pole right renal calculus. Multiple punctate nonobstructive left renal calculi. No suspicious renal mass or hydronephrosis. GI/Bowel: The small bowel is normal in course and caliber. No colonic wall thickening or dilation. The appendix is not seen however there are no pericecal inflammatory changes. Pelvis: Suboptimally distended bladder. Status post hysterectomy. No adnexal mass. Peritoneum/Retroperitoneum: No free air or fluid. No lymphadenopathy. Unremarkable abdominal aorta. Bones/Soft Tissues: Mild diastasis of the rectus abdominus muscles. Small fat containing umbilical and periumbilical hernias. No acute soft tissue or osseous abnormality. IMPRESSION: Bilateral nephrolithiasis. No obstructive uropathy. I have personally reviewed the images of this examination and agree with the resident's findings and interpretation. Interpreted by: Delon Guardado DO Preliminary Report By: Lauren Abraham Electronically signed By Delon Guardado DO Dictated Date: 12/24/2022 8:39:16 PM Prelim Date: 12/24/2022 8:43:47 PM Sign Date: 12/24/2022 9:23:01 PM Ordering Provider: MARCELA LOPEZ [facility] [id number] Note Discharge Instructions Thank you for allowing [facility] to assist you with your healthcare needs. The following is importantdischarge information regarding your hospital visit. Diagnosis from Today's Visit Right flank pain Nephrolithiasis Hepatic cyst Abdominal pain What to Do Next Instructions from Your Care Team No qualifying data available. Post Acute Orders No qualifying data available. You Need to Schedule the Following Appointments Follow Up with Follow up with primary care provider When Within 2-4 days Allergies Contrast dye Flagyl Motrin Toradol IV/IM aspirin penicillin Medications Please ask your primary doctor or pharmacist before taking any other medication not listed, including over the counter drugs, herbal medications, vitamins and or supplements as they may interact withyour home medications. Please take this list to your next doctor s visit. Bring all medications you take, including over the counter medications, herbals and other supplements with you to your doctor s visit. Patients and families are reminded to discard old lists and to update any records with all medication providers or retail pharmacies. Education Materials Kidney Stone, Undescended, No Symptoms A kidney stone (nephrolithiasis) begins as tiny crystals that form inside the kidney where urine ismade. Most kidney stones enlarge to about 1/8 to 1/4 inch in size before leaving the kidney and moving toward the bladder. There are 4 types of kidney stones. Eighty percent are calcium stones mostlycalcium oxalate but also some with calcium phosphate. The other 3 types include uric acid stones, struvite stones (from a preceding infection), and rarely, cystine stones. When the stone breaks free and begins to move down the ureter (the narrow tube joining the kidney to the bladder) it often causes sharp back and side pain, often with nausea and vomiting. When the stone reaches the bladder, the pain stops. Once in your bladder, the kidney stone may pass through theurethra (urinary opening) while you are urinating (which may cause pain to start again). Or, it maybreak into such small fragments that you don t notice it passing. Your kidney stone is still inside the kidney. There is no way to predict how long it will be beforeit breaks free and causes any symptoms. Most stones will pass on their own within a few hours to a few days (sometimes longer). You may notice a red, pink, or brown color to your urine. This is normal while passing a kidney stone. A large stone may not pass on its own and may require special procedures to remove it. These procedures include lithotripsy, which uses ultrasound waves to break up thestone; ureteroscopy, which pushes a thin, basket-like instrument through the urethra and bladder and into the ureter to pull out the stone; and various types of direct surgery through the skin. Home care The following guidelines will help you care for yourself at home: Drink plenty of fluids. This increases urine flow and reduces the risk of further stone formation. Healthy adults (no heart/liver/kidney disease) who have had a kidney stone should drink 12, 8-ounce glasses of fluids per day. Most of this should be water. The goal is to produce 1.5 to 2 quarts of almost colorless urine per 24 hours. You should collect your urine in a container and then drain it through a strainer to collect any stones or pieces of stones. Take these to your healthcare provider to help identify your specific typeof stone to aid in future treatment and dietary changes. Try to stay as active as possible since this will help the stone pass. Don't stay in bed unless youhave pain that prevents you from getting up. If you develop pain, you may take ibuprofen or naproxen for pain, unless another medicine was prescribed. If you have chronic liver or kidney disease or ever had a stomach ulcer or GI bleeding, talk with your healthcare provider before using these medicines. Prevention Each year, there is a 5% to 10% chance that a new stone will form (50% chance over the next 5 to 7 years). The risk is higher if you have a family history of kidney stones or have certain chronic illnesses such as hypertension, obesity, or diabetes. However, there are lifestyle and dietary changes that you can make to reduce the risk of a recurrence. Most kidney stones are made of calcium. The following is advice for preventing a recurrence of calcium stones. If you don t know the type of stone you have, follow this advice until the cause of yourstone is determined. Things that help: The most important thing you can do is to drink plenty of fluids each day, as described above. Certain foods, such as wheat, rice, rye, barley and beans, contain phytate, a compound that may lower the risk of recurrence of any type of stone. Eat more fruits and vegetables (especially those high in potassium). Eat foods high in natural citrate like fruit and fruit juices (using low sugar). Low calcium contributes to the formation of calcium type kidney stones. Eat a normal calcium diet and speak with your doctor if you are taking calcium supplements. It may be detrimental to reduce your calcium intake. New research shows that eating calcium-rich and oxalate-rich foods together lowersyour risk of stones by binding the minerals in the stomach and intestines before they can reach thekidneys. Limit salt intake to 2 grams (1 teaspoon) per day. Use limited amounts when cooking, and don t add salt at the table. Processed and canned foods are usually high in salt. Spinach, rhubarb, peanuts, cashews and almonds, grapefruit and grapefruit juice are all high oxalate foods and should be reduced, or eaten with calcium rich foods. These foods include dairy, dark leafy greens, soy products, and calcium enriched foods. Reducing the amount of animal meat in your diet may lower your risk of uric acid stones. Don't have excess sugar (sucrose) and fructose (sweetener in many soft drinks) in your diet. If you take vitamin C as a supplement, do not take more than 1,000 milligrams (mg) per day. A dietitian or your healthcare provider can provide you with specific details about dietary changesto prevent kidney stone recurrence. Follow-up care Follow up with your healthcare provider, or as advised. Talk with your healthcare provider about urine and blood tests to find out the cause of your stone. If you had an X-ray, CT scan, or other diagnostic test, you will be notified of any findings that may affect your care. Call 911 Call 911 if you have any of these: Weakness, dizziness, or fainting When to seek medical advice Call your healthcare provider right away if any of the these occur: Severe sharp back or side pain Repeated vomiting or unable to keep down fluids Fever of 100.4 F (38 C) or higher, or as directed by your health care provider Blood (pink or red color) in your urine Foul smelling or cloudy urine Unable to pass urine for 8 hours or increasing bladder pressure 0447-4157 [employer] [address] [place] [address]. All rights reserved. This information is not intended as a substitute for professional medical care. Always follow yourhealthcare professional's instructions. Abdominal Pain Abdominal pain is pain in the stomach or belly area. Everyone has this pain from time to time. In many cases it goes away on its own. But abdominal pain can sometimes be due to a serious problem, such as appendicitis. So it s important to know when to get help. Causes of abdominal pain There are many possible causes of abdominal pain. Common causes in adults include: Constipation, diarrhea, or gas Stomach acid flowing back up into the esophagus (acid reflux or heartburn) Severe acid reflux, called GERD (gastroesophageal reflux disease) A sore in the lining of the stomach or small intestine (peptic ulcer) Inflammation of the gallbladder, liver, or pancreas Gallstones or kidney stones Appendicitis Intestinal blockage An internal organ pushing through a muscle or other tissue (hernia) Urinary tract infections In women, menstrual cramps, fibroids, ovarian cysts, pelvic inflammatory disease, or endometriosis Inflammation or infection of the intestines, including Crohn's disease and ulcerative colitis Irritable bowel syndrome Diagnosing the cause of abdominal pain Your healthcare provider will give you a physical exam help find the cause of your pain. If needed,you will have tests. Belly pain has many possible causes. So it can be hard to find the reason for your pain. Giving details about your pain can help. Tell your provider where and when you feel the pain, and what makes it better or worse. Also let your provider know if you have other symptoms such as: Fever Tiredness Upset stomach (nausea) Vomiting Changes in bathroom habits Blood in the stool or black, tarry stool Weight loss that you can't explain (involuntary weight loss?) Also report any family history of stomach or intestinal problems, or cancers. Tell your provider about all your alcohol use and drug use. Tell your provider about all medicines you use, including herbs, vitamins, and supplements. Treating abdominal pain Some causes of pain need emergency medical treatment right away. These include appendicitis or a bowel blockage. Other problems can be treated with rest, fluids, or medicines. Your healthcare provider can give you specific instructions for treatment or self-care based on what is causing your pain. If you have vomiting or diarrhea, sip water or other clear fluids. When you are ready to eat solid foods again, start with small amounts of sqkg-ax-ecuwuf, low- fat foods. These include apple sauce, toast, or crackers. When to get medical care Call 911 or go to the hospital right away if you: Can t pass stool and are vomiting Are vomiting blood or have bloody diarrhea or black, tarry diarrhea Have chest, neck, or shoulder pain Feel like you might pass out Have pain in your shoulder blades with nausea Have sudden, severe belly pain Have new, severe pain unlike any you have felt before Have a belly that is rigid, hard, and hurts to touch Call your healthcare provider if you have: Pain for more than 5 days Bloating for more than 2 days Diarrhea for more than 5 days A fever of 100.4 F (38 C) or higher, or as directed by your healthcare provider Pain that gets worse Weight loss for no reason Continued lack of appetite Blood in your stool How to prevent abdominal pain Here are some tips to help prevent abdominal pain: Eat smaller amounts of food at each meal. Don't eat greasy, fried, or other high-fat foods. Don't eat foods that give you gas. Exercise regularly. Drink plenty of fluids. To help prevent GERD symptoms: Quit smoking. Reduce alcohol and foods that increase stomach acid. Don't use aspirin or fvmj-gon-wsbufns pain and fever medicines, if possible. This includes nonsteroidal anti-inflammatory drugs (NSAIDs). Lose excess weight. Finish eating at least 2 hours before you go to bed or lie down. Raise the head of your bed. [id number] [employer] [address] [place] [address], [place] [address]. All rights reserved. This information is not intended as a substitute for professional medical care. Always follow yourhealthcare professional's instructions. Additional Information VACCINATE! IT SAVES LIVES! Members of the community who have not yet received the COVID-19 vaccine and would like to receive it can visit one of [facility] vaccine clinics. There are many vaccine clinic locations within the [facility]. For locations and available times, please visit www.gettheshot.coronavirus.[place].gov/. It is important to note that some COVID mobile vaccine clinics are held outdoors and may be canceled in rainy or stormy conditions. To learn more about pediatric vaccinations (ages 5-11), we invite you to visit the [facility] webpage. https://www.[facility].org/pages/4662-Icajn-Ecicaikyivs-Ctolxtblru-Ohfij-Rrq stions.htmlTo learn more about the COVID-19 vaccine, we invite you to visit the CDC website for a list of frequently asked questions. https://www.cdc.gov/coronavirus/2019-ncov/vaccines/faq.html [facility] Patient Portal Access Instructions: Stay connected with your healthcare team and access your personal medical information anytime with the [employer] [employer] Patient Portal. If you would like a full copy of your medical records please contact the [facility] Medical Records Department Thursday through Thursday between 8a.m. and 4:30p.m. Please follow the directions below to access the portal: 1.Access the email account you provided upon registration to the hospital.2.Look for an invitation email from [facility].3.Open the email and access the invitation link: Accept Invitation to [facility]4.Fill in the required xiong to create your account. Sign into [email or web address] with your username and password that you created in the above steps to stay up to date. You can then view a summary of results, a summary of your visits, and the ability to download your summaries to your computer or send the information securely to a physician. Remember that your healthcare information is confidential, so carefully consider who you will allow to register on the [email or web address] Patient Portal for access to your information. You can also access the [email or web address] Patient Portal on the [employer]. Simply click on Health Records under [employer] and then click on the [employer] logo. HOW TO SAFELY DISPOSE OF PRESCRIPTION MEDICATIONS Please use one of the following methods to safely dispose of your unused medications. 1.Use a drug disposal kit: the drug disposal pouch allows you to safely discard your old and unuseddrugs. Ask your nurse to give you one when you are discharged.2.Visit a local take-back location: Many local pharmacies and police departments have programs that collect old and unwanted prescriptiondrugs. Call your local pharmacy or go to http://bit.[employer]/8O7Eb5e to find one close to you.3.Make use of household items: Use cat litter or old coffee grounds to dispose medications if other options arenot available. Mix your drugs with these household products, seal them in an airtight container andthrow it into the garbage. Call [facility]: [phone] to be sure your drugs can be disposed of in this way. Some medicines may require a different approach.4.Never flush your medications down the toilet. IF YOU HAVE BEEN PRESCRIBED AN OPIOIDS FOR PAIN If you have been prescribed an opioid (such as hydrocodone, oxycodone or morphine), it is critical to understand the possible side effects and risks of opioid pain medications. Even when taken as directed, opioids can have several side effects including: Tolerance, meaning you might need to take more of a medication for the same pain relief. Nausea, vomiting and/or constipation. Sleepiness, dizziness, dry mouth, confusion, depression or itching. Physical dependence, meaning you have withdrawal symptoms when a medication is stopped ? this can develop within a few days. KNOW YOUR RESPONSIBILITIES It is important to know exactly how much and how often to take the opioid pain medications you are prescribed. Never take opioids in higher amounts or more often than prescribed. Do not combine opioids with alcohol or other drugs that cause drowsiness, such as benzodiazepines, also known as benzos,including diazepam and alprazolam, muscle relaxants or sleep aids. Never sell or share prescriptionopioids. This is illegal. Store opioids in a secure place and out of reach of others (including children, family, friends and visitors). The last page(s) of this document has been signed and retained as a CHART COPY Signatures Patient Education Materials Kidney Stone, Undescended (No Symptoms) Abdominal Pain Medication Leaflets My discharge plan and instructions have been reviewed and explained to me and IBENJI NICHOLE L understand my current condition and have read and understand these discharge instructions. I have received a written copy of the plan/instructions. If I have questions, I am aware that I should contactmy doctor. 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 Multiplanar reformatted images are provided for review. Automated exposure control, iterative reconstruction, and/or weight based adjustment of the mA/kV was utilized to reduce the radiation dose to as low as reasonably achievable. COMPARISON: None. HISTORY: ORDERING SYSTEM PROVIDED HISTORY: Reason for Exam: R flank pain, h/o kidney stones, liver cysts FINDINGS: Lower Chest: The included lung bases are clear. Trace pericardial fluid. Organs: Multiple scattered hepatic cysts. The largest is seen within the left hepatic lobe measuring up to 3.4 cm. Surgically absent gallbladder. Unremarkable spleen, adrenal glands, and pancreas. The kidneys are symmetric in size. Punctate nonobstructive right upper pole right renal calculus. Multiple punctate nonobstructive left renal calculi. No suspicious renal mass or hydronephrosis. GI/Bowel: The small bowel is normal in course and caliber. No colonic wall thickening or dilation. The appendix is not seen however there are no pericecal inflammatory changes. Pelvis: Suboptimally distended bladder. Status post hysterectomy. No adnexal mass. Peritoneum/Retroperitoneum: No free air or fluid. No lymphadenopathy. Unremarkable abdominal aorta. Bones/Soft Tissues: Mild diastasis of the rectus abdominus muscles. Small fat containing umbilical and periumbilical hernias. No acute soft tissue or osseous abnormality. IMPRESSION: Bilateral nephrolithiasis. No obstructive uropathy. I have personally reviewed the images of this examination and agree with the resident's findings and interpretation. Interpreted by: Delon Guardado DO Preliminary Report By: Lauren Abraham Electronically signed By Delon Guardado DO Dictated Date: 12/24/2022 8:39:16 PM Prelim Date: 12/24/2022 8:43:47 PM Sign Date: 12/24/2022 9:23:01 PM Ordering Provider: [facility]03-07-[address] Hood [facility] November 18, 2022 12:23pm Note Date/Time November 18, 2022 10:0 3am [facility] Medical Records Department [address] [place] [address] Emergency Department Summary 11/18/22 MR#: [id number] Acct: [id number] Name: SALLY VARGAS Rep #:[id number] : 1980 42 From: Stefano Hood MD PCP: CHAZ Bowser Status:REG E R Location: ED HPI HPI - GI History of Present Illness Chief Complaint: Abd Pain Narrative Narrative: 42-year-old female past medical history of hyperlipidemia presents with abdominal bloating and right-sided abdominal pain that she has had for the last 2 weeks. She states that she is having normal bowel movements and still flatulent. Past surgical and history does include hysterectomy, cholecystectomy, and ovary surgeries. She has had remote bowel obstruction she states 20 years ago. She is progressively been having abdominal bloating along with pain on her right side. She states that she is post to see a new primary care provider in a week or 2 at least, but called her current primary care provider and was told to come to the emergency department for evaluation. She states over the last day she has been vomiting a few times, nonbloody, but more acidy. [facility] Medical History Bipolar disorder Chronic pain History of renal calculi History of uterine cancer (2006) Hyperlipidemia Incomplete right bundle branch block Lung nodule Migraine Obesity Ovarian cyst Pancreatitis Right tubo-ovarian mass Ureteral stone with hydronephrosis Home Medications prazosin 1 mg capsule 1 mg PO QHS 03/26/20 [History Last Taken Unknown] gabapentin 400 mg capsule 800 mg PO TID 10/03/20 [History Last Taken Unknown] hydroxyzine HCl 50 mg tablet 50 mg PO QHS 10/03/20 [History Last Taken Unknown] omeprazole magnesium 20 mg tablet,delayed release 20 mg PO DAILY 10/03/20 [History Last Taken Unknown] buspirone 10 mg tablet 10 mg PO BID 11/19/20 [History Last Taken Unknown] paroxetine HCl 10 mg tablet 10 mg PO DAILY 02/27/21 [History Last Taken Unknown] baclofen 10 mg tablet 10 mg PO DAILY 06/14/21 [History Last Taken Unknown] hydrocodone-acetaminophen 5-325mg 5mg-325mg 1 tab PO Q6H PRN pain 3 days #10 tabs 06/14/21 [Rx Last Taken Unknown] promethazine 25 mg tablet 25 mg PO TID PRN nausea and vomiting #14 tabs 06/14/21[Rx Last Taken Unknown] sucralfate 1 gram tablet (Carafate) 1 g PO BID 06/14/21 [History Last Taken Unknown] dicyclomine 20 mg tablet 20 mg PO BID #10 tabs 04/10/22 [Rx Last Taken Unknown] ondansetron 4 mg disintegrating tablet 4 mg PO Q8H PRN nausea and vomiting #10 tabs 04/10/22 [Rx Last Taken Unknown] doxycycline monohydrate 100 mg capsule 100 mg PO BID #9 CAPSULES 07/29/22 [Rx Last Taken Unknown] estradiol 0.5 mg tablet 0.5 mg PO DAILY 09/07/22 [History Last Taken Unknown] quetiapine 50 mg tablet 50 mg PO QHS 09/07/22 [History Last Taken Unknown] Allergy/AdvReac Type Severity Reaction Status Date / Time Iodinated Contrast Media [CT] Allergy Anaphylaxis Verified 11/18/22 09:52 ketorolac tromethamine Allergy Rash Verified 11/18/22 09:52 [From Toradol] metronidazole [From Flagyl] Allergy Hives Verified 11/18/22 09:52 Penicillins Allergy Hives Verified 11/18/22 09:52 aspirin AdvReac Upset Verified 11/18/22 09:52 Stomach IV contrast Allergy Anaphylaxis Uncoded 11/18/22 09:52 Family History Aunt Breast cancer Grandfather CAD (coronary artery disease) Father Heart disease, Onset Age: 73 Triple bypass Mother Heart disease, Onset Age: 62 Other Diabetes Surgical History H/O ovarian cystectomy (09/2019) History of bilateral oophorectomy History of hysterectomy History of tubal ligation Social History household members: none Smoking Status: Current every day smoker tobacco type: cigarettes Tobacco: How many years used: 15 substance use type: does not use ROS ROS ED ROS Narrative Constitutional: No fever, no chills. HEENT: No sore throat. No neck pain. No loss of vision. No rhinorrhea. Cardiovascular: No chest pain. No palpitations. No pedal edema. Respiratory: No cough, no shortness of breath. Abdominal: Abdominal bloating and right-sided abdominal pain. Nausea and vomiting starting yesterday. No diarrhea. No constipation. Genitourinary: No dysuria. No hematuria. Musculoskeletal: No myalgias. No arthralgias. Neurologic: No headaches. No dizziness. No lightheadedness. Skin: No rash. No change in color. Psychiatric: No depression. No anxiety. EXAM Physical Exam Narrative Exam Narrative: Afebrile. Vital signs noted. HEENT: Normocephalic. Atraumatic. PERRL, EOMI. Neck soft and supple. No pointtenderness or step off. Cardiovascular: Regular rate and rhythm. No murmurs, rubs, or gallops appreciated. Respiratory: No tachypnea. Lungs clear to auscultation bilaterally. Gastrointestinal: Abdomen soft, mildly protuberant, with normoactive bowel sounds. Mild tenderness along right flank. No rebound or guarding. Neurological: Awake. Alert. Nonfocal, nonlateralizing. Skin: No rash. Normal color. No pallor. Musculoskeletal: No pedal edema. Full range of motion extremities. Const Vital Signs: 11/18/22 09:50 Temperature 97.7 F L Temperature Source Temporal Pulse Rate 97 Respiratory Rate 14 Blood Pressure 111/76 Blood Pressure Mean 87 Pulse Ox 96 Oxygen Delivery Method Room Air MDM MDM MDM Narrative Medical decision making narrative: Suspicion is lower for bowel obstruction as the patient is still having bowel movements and flatulence. However, given her past surgical history and previousbowel obstruction, comprehensive work-up was pursued. I did review her ED care plan. Additionally, she has an allergy to IV contrast of anaphylaxis so I will perform a CT scan without contrast even to look for ureteral stone as she is having right flank pain. I did review her care plan. I reviewed her laboratory work, she has a normal white count of 8.1, hemoglobin slightly low at 11.9, platelet count normal at 223. CMP shows a creatinine of 1.07. AST and ALT were reviewed and grossly unremarkable, AST slightly low at 1with a normal ALT of 27. Urinalysis is negative for infection. I do not feel antibiotics are indicated. Patient requested something for pain, and I do not feel that narcotic pain medications are indicated. Additionally, she has had problems with chronic abdominal pain and once again I reviewed her care plan. She was administered Tylenol. On my independent review of her CT scan, I see noevidence of an acute obstruction, no dilation of bowel, which I think would explain her reported abdominal bloating. I reviewed the CT report by the radiologist which confirms my independent evaluation and interpretation. At this point in time, I feel she be discharged safely home with follow-up to her primary care provider. Return instructions were reviewed. Disposition is discharged home in stable condition. History & Record Review Discussion w/independent historian: Patient Additional record(s) reviewed:: Prior ED visit and Prior labs Lab Data Attestation: I reviewed the patient's lab results. Labs: Laboratory Results - last 24 hr 11/18/22 11/18/22 11/18/22 10:30 10:30 10:57 WBC 8.1 RBC 4.02 L Hgb 11.9 L Hct 37.2 MCV 92.5 MCH 29.6 MCHC 32.0 RDW Std Deviation 47.9 H RDW Coeff of Shun 14.1 Plt Count 223 MPV 11.2 Immature Gran % (Auto) 1.700 H Neut % (Auto) 58.9 Lymph % (Auto) 29.9 [place]as % (Auto) 5.8 Eos % (Auto) 3.0 Baso % (Auto) 0.7 Absolute Neuts (auto) 4.8 Absolute Lymphs (auto) 2.42 Nucleated RBC % 0 Sodium 140 Potassium 4.2 Chloride 105 Carbon Dioxide 30.0 Anion Gap 5 BUN 12 Creatinine 1.07 H Estim Creat Clear Calc 51.16 Est GFR (MDRD) Af Amer 72 Est GFR (MDRD) Non-Af 59 L BUN/Creatinine Ratio 11.2 Glucose 110 H Calcium 9.3 Total Bilirubin 0.40 AST 12 L ALT 27 Alkaline Phosphatase 129 H Total Protein 7.5 Albumin 3.6 Globulin 3.9 Albumin/Globulin Ratio 0.9 Lipase 137 Urine Color Yellow Urine Clarity Clear Urine pH 8.0 Ur Specific [place] 1.015 Urine Protein Negative Urine Glucose (UA) Normal Urine Ketones Negative Urine Occult Blood Negative Urine Nitrite Negative Urine Bilirubin Negative Urine Urobilinogen Normal Ur Leukocyte Esterase Negative Urine RBC 0 SEEN Urine WBC 0 SEEN Ur Squamous Epith Cells 25-50 SEEN Urine Bacteria 0 SEEN Urine Mucus 0 SEEN Radiography Diagnostic Testing: Clinical Impression(s) from Imaging Studies Abdomen/Pelvis CT 11/18/22 09:59 IMPRESSION: Stable hepatic cysts. Status post cholecystectomy. Electronically Signed: Genaro Hines MD at 11:50 EST , Discharge Plan Triage Chief Complaint: Abd Pain ED Provider: Stefano Hood Dx/Rx/DC Orders Clinical Impression: Abdominal pain, Abdominal bloating Instructions: ED Abdominal Pain Unkn Cause Fem Prescriptions: No Action buspirone 10 mg tablet 10 mg PO BID prazosin 1 MG capsule 1 mg PO QHS gabapentin 400 MG capsule 800 mg PO TID hydroxyzine HCl 50 MG tablet 50 mg PO QHS omeprazole magnesium 20 MG tablet,delayed release (DR/EC) 20 mg PO DAILY paroxetine HCl 10 mg tablet 10 mg PO DAILY Label Comments: TAKE 1 TABLET BY MOUTH EVERY DAY sucralfate [Carafate] 1 gram Tablet 1 g PO BID baclofen 10 mg tablet 10 mg PO DAILY Label Comments: TAKE 1 TABLET BY MOUTH TWICE A DAY FOR 5 DAYS promethazine 25 mg tablet 25 mg PO TID PRN (Reason: nausea and vomiting) Qty: 14 0RF hydrocodone-acetaminophen 5-325 mg tablet 1 tab PO Q6H PRN (Reason: pain) 3 Days Qty: 10 0RF dicyclomine 20 mg tablet 20 mg PO BID Qty: 10 0RF ondansetron 4 mg tablet,disintegrating 4 mg PO Q8H PRN (Reason: nausea and vomiting) Qty: 10 0RF doxycycline monohydrate 100 mg capsule 100 mg PO BID Qty: 9 0RF estradiol 0.5 mg tablet 0.5 mg PO DAILY Label Comments: TAKE 1 TABLET BY MOUTH EVERY DAY quetiapine 50 mg tablet 50 mg PO QHS Label Comments: TAKE ONE TO TWO TABLETS BY MOUTH AT BEDTIME Primary Care Provider: Isabel Arias Referrals: Isabel Arias PA [Primary Care Provider] - As soon as possible Disposition Disposition: Home, Self Care What to do if you have Problems For any increased pain, shortness of breath, bleeding, nausea or vomiting, chestpain, or any unexpected problems, contact your Primary Care Provider. Call [facility] ([phone]) or report to the closest Emergency Room. Call 911 if necessary. 11/18/22 1223 <Electronically signed by Stefano Hood MD> Cosigner Signature (if applicable): CC: CHAZ Arias ~ Signed [facility] Work Phone: [phone]) 977-888802-08-2023 History of Present illness Narrative* No Akers APRN.CLASSROOM TEACHER - 10/22/2022 1:07 PM EST Chief Complaint Patient presents with: Telemedicine Patient was offered a virtual/telemedicine appointment in lieu of an office visit due to recommendations to reduce patient exposure to COVID-19. Video was used for evaluation of this patient. Patient is aware of limitations of performing the visit without a face to face visit in the office setting and agrees. Patient agrees to the visit: Yes Patient Location: [facility] Sally Vargas is a 42 year old female who is contacted today for a virtual visit She does not have a primary care provider on file. Reports: Pt presents today with complaint of getting sick frequently. Refers that she has had problems for nearly year with a cough. It will get better and then worse again. Refers that it is just a persistent cough. Refers that she will get tired and weak and symptoms will start coughing again. Refers that it started about a week ago. Refers that she knows that it tends to get worse. Has been taking dayquil and nyquil for cough. Will take benadryl as needed. Will sleep with head propped up. No wheezing. Chest doesn't feel tight. Refers coughed up a little bit of mucus. Looked like maybe a little blood in it from coughing a lot. No recent fevers/chills. Past medical history, appointments, medications, allergies reviewed 10/22/2022 Previous Medical History PAST MEDICAL HISTORY Diagnosis Date Allergic rhinitis, cause unspecified 05/17/2008 Spring and summer Benign liver cyst 05/24/2010 CT scan at [facility] 11/2009 and 04/2010 showe 4 mm increase in size. No pain. No elevated LFTs on 03/11/2010. Calculus of kidney 05/17/[address] Nicolas: Hospitalized age 20, and again later -- no procedures so far ([facility], [address] [facility]) Cancer (HCC) COVID-19 virus infection 10/07/202109/2021 Diverticulosis Dysmenorrhea Hemorrhoids History of blood transfusion Impaired fasting glucose 05/17/2008 Sugar 104 fasting, 04/21 Marijuana use 07/10/2020 ER visit 07/06/2020, [place] M[facility]INE 05/17/2008 Has used imitrex with good response; Keeps Vicodin on hand when needed; Ovarian cyst 07/15/2012 Pancreatitis Smoker 05/17/2008 Started age 26, 1/2 a PPD Previous Surgical History 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, mild esophagitis, 2 cm [facility]atal [facility] 05/28/2020 LIG/TRNSXJ FLP TUBE ABDL/VAG APPR UNI/BI OOPHORECTOMY PARTIAL/TOTAL UNI/BI 2009 Oophorectomy right, still has left OOPHORECTOMY PARTIAL/TOTAL UNI/BI 01/2015 left removed PAST SURGICAL HISTORY OF uterine ablation PAST SURGICAL HISTORY OF cyst removal TOTAL ABDOMINAL HYSTERECT W/WO RMVL TUBE OVARY 08/31/2006 Hysterectomy, [facility] Family History FAMILY HISTORY Problem Relation Age of Onset Thyroid Mother unsure of details Arthritis Mother fibromyalgia Blood Disease Mother blood clots, unsure of details (aorta?) No Known Problems Father No Known Problems Sister No Known Problems Sister No Known Problems Brother Diabetes Maternal Grandmother Diabetes Maternal Grandfather Lipids Maternal Grandfather Stroke Maternal Grandfather Coronary Artery Disease Maternal Grandfather Cataract Maternal Grandfather Pancreatic Cancer Maternal Grandfather Diabetes Paternal Grandmother Diabetes Paternal Grandfather Coronary Artery Disease Paternal Grandfather No Known Problems Son No Known Problems Son Breast Cancer Maternal Aunt Lipids Maternal Uncle Coronary Artery Disease Maternal Uncle other (ovarian ca) Other maternal cousin Colon Cancer No Family History Patient Allergies ALLERGIES Allergen Reactions Penicillins Rash Cephalexin Itching Chlorhexidine Rash Skin rash Toradol [Ketorolac] Rash Tramadol Rash Patient reports no allergy to Tramadol. Asa [Salicylates] Other: See Comments ulcers Contrast Dye [Iodin* Shortness of Breath Ibuprofen GI Upset Prednisone Other: See Comments makes agitated and mean Current Medications Current Outpatient Medications on File Prior to Visit Medication Sig naproxen (NAPROSYN) 500 mg tablet Take 1 tablet by mouth twice daily as needed (pain/inflammation, take with food.). gabapentin (NEURONTIN) 800 mg tablet TAKE 1 TABLET BY MOUTH THREE TIMES A DAY albuterol HFA (VENTOLIN HFA) 90 mcg/actuation inhaler Inhale 2 Puffs as instructed every 4 hours asneeded for wheezing/shortness of breath. cholecalciferol, Vitamin D3, (VITAMIN D3) 1,250 mcg (50,000 unit) cap capsule Take 1 capsule by mouth one time a week. cyanocobalamin (VITAMIN B-12) 1,000 mcg tab Take 1 tablet by mouth once daily. atorvastatin (LIPITOR) 10 mg tablet Take 1 tablet by mouth daily at bedtime. For cholesterol. QUEtiapine (SEROQUEL) 50 mg tablet Take 50 mg by mouth daily at bedtime. DULoxetine (CYMBALTA) 20 mg capsule Take 20 mg by mouth once daily. pantoprazole DR (PROTONIX) 40 mg tablet Take 1 tablet by mouth once daily. Take on empty stomach, 1/2 hr before meal. diphenhydrAMINE (BENADRYL) 25 mg capsule Take 50 mg by mouth at bedtime as needed. Estradiol (ESTRACE) 0.5 mg tablet Take 1 tablet by mouth once daily. PARoxetine (PAXIL) 10 mg tablet Take 1 tablet by mouth once daily. No current facility-administered medications on file prior to visit. Social History Social History Tobacco Use Smoking status: Former Packs/day: 0.50 Years: 3.00 Pack years: 1.50 Types: Cigarettes Quit date: 01/12/2017 Years since quittin.7 Smokeless tobacco: Never Tobacco comments: Approx. 3 cigarettes daily-1 pack every week Vaping Use Vaping Use: Never used Substance Use Topics Alcohol use: Yes Comment: Occasional Drug use: Never EXAM: LMP 08/10/2006 Limited exam as visit was completed over the virtual platform. Virtual visit completed using video, limited exam completed. Patient sounds or appears ill: No General Appearance: Well appearing, alert, in no acute distress, well-hydrated, well nourished. Skin: Skin color normal Head: Normocephalic. No facial swelling or redness. EENT: Eyes nonreddened. No discharge. External ears nonreddened and no swelling. Neck: No mass or lesions. No swelling. FROM Patient is unable to speak in complete sentences: No Patient has labored breathing: No. Patient is audibly coughing: No Psych: Attitude - cooperative, easily engaged in conversation Affect - Euthymic, normal mood Mental status: Alert. Speech is clear and fluent with good repetition, comprehension Appearance - Normal hygiene and grooming appropriate Coordination: No abnormal or extraneous movements. Gait/Stance: Posture is normal. Health Maintenance List HEPATITIS B(1 of 3 - 3-dose series) Never done HEPATITIS C SCREENING Never done HIV SCREENING Never done MAMMOGRAM Never done COVID-19 VACCINE(3 - Booster for Lauren series) due on 11/21/2021 COLORECTAL CANCER SCREENING due on 05/08/2025 DTAP,TDAP,TD(2 - Td or Tdap) due on 05/28/2025 INFLUENZA Completed PAP TESTING Discontinued HPV TESTING Discontinued Data reviewed Last 5 Encounter BP Readings: Date: BP: 09/08/2022 128/76 07/18/2022 110/80 06/26/2022 122/78 05/12/2022 128/88 11/04/2021 119/69 BMI Readings from Last 5 Encounters: 09/08/22 : 41.38 kg/m 07/18/22 : 39.14 kg/m 06/26/22 : 38.96 kg/m 05/12/22 : 39.03 kg/m 11/04/21 : 40.07 kg/m Last 5 Encounter Wt Readings: Date: Wt: 09/08/2022 100.7 kg (222 lb) 07/18/2022 95.3 kg (210 lb) 06/26/2022 94.8 kg (209 lb) 05/12/2022 95 kg (209 lb 6.4 oz) 11/04/2021 97.5 kg (215 lb) Medication and allergy list reviewed, reconciled and updated 10/22/2022 ASSESSMENT/PLAN: 1. Cough, unspecified type - ICD9: 786.2, ICD10: R05.9 Frequent cough. Likely currently viral in nature. Start mucinex. Never completed PFTs that were previously ordered. Encouraged to schedule an appt to establish with provider. Discussed treatment plan and patient voices understanding. Patient's questions answered appropriately. Medications and potential side effects were discussed and patient voices understanding. Return to the office as scheduled or as needed for worsening/no improvement. No Akers APRN.CLASSROOM TEACHER [facility] Discharge instructions Patient Education 10/12/2022 11:54:58 Identifying Kidney Stones Identifying Kidney Stones Your kidneys filter your blood and release chemicals into the urine. If certain chemicals build up in the kidneys, they can form a stone. There are 4 general types of kidney stones. Your kidney stone s size and shape determine whether itis likely to pass by itself. Knowing what a stone is made of (its composition) helps your healthcare provider find its cause. Then he or she can suggest the best treatment. X-rays or scans can help show the stone's size and shape. Your healthcare provider may also give you a strainer. You can use th is to catch the stone while passing urine, and the provider can then test the stone. Other urine and blood tests may be done to help identify the stone. These tests can also help identify causes for different types of stones. Size A stone may be as small as a grain of sand. Or it may be as large as a golf ball. Small stones may pass out of your body when you urinate. Shape Small, smooth, round stones may pass easily. Jagged-edged stones often lodge inside the kidney or ureter. Staghorn stones can fill the entire renal pelvis and calyces. Composition Most stones are made of calcium oxalate, a hard compound. Stones made of cystine or uric acid, or caused by infection (struvite stones), are less dense. Stones often contain more than one chemical. Treating your stones You and your healthcare provider will work together to form a treatment plan. Your provider may suggest that you let your stone pass naturally. Or you may manage it with medicines. Certain proceduresmay also help, such as SWL (shock wave lithotripsy) or using a camera inside the body to remove thestone (ureteroscopy). And you will be told how you can help prevent kidney stones in the future. 1290-6280 [employer] [address] [place] [address], [place] [address]. All rights reserved. This information is not intended as a substitute for professional medical care. Always follow yourhealthcare professional's instructions. Follow Up Care 10/12/2022 09:59:50 With:MARCELINO ALBERT MD Address: [address] [place] [id number] When:2-4 days [facility] 01-29-2023 Note Discharge Instructions Thank you for allowing [facility] to assist you with your healthcare needs. The following is importantdischarge information regarding your hospital visit. Diagnosis from Today's Visit Kidney stone Abdominal pain Emesis What to Do Next Instructions from Your Care Team No qualifying data available. Post Acute Orders No qualifying data available. You Need to Schedule the Following Appointments Follow Up with MARCELINO ALBERT MD When Within 2-4 days Where: [address] [place], [place] [id number]- Allergies Advil Contrast dye Flagyl NSAIDS Toradol Zofran penicillin Medications Please ask your primary doctor or pharmacist before taking any other medication not listed, including over the counter drugs, herbal medications, vitamins and or supplements as they may interact withyour home medications. What How Much When Why Instructions Last Dose New cephalexin (cephalexin 500 mg oral capsule) 1 cap by mouth Two (2) times a day Kidney stone Duration: 7 Days Printed Prescription Changed acetaminophen-hydrocodone (Acushnet 325- 5 mg oral tablet) 1 tab(s) by mouth Every 6 hours as needed for as needed for pain Kidney stone Duration: 3 Days Printed Prescription Changed acetaminophen-hydrocodone (Acushnet 325- 5 mg oral tablet) 1 tab(s) by mouth Every 6 hours as needed for as needed for pain Abdominal pain Duration: 3 Days Changed acetaminophen-hydrocodone (Acushnet 325- 5 mg oral tablet) 1 tab(s) by mouth Every 6 hours Cellulitis Duration: 3 Days Changed promethazine (Phenergan ORAL use promethazine ) 25 Milligram by mouth Every 4 hours Abdominal pain Changed promethazine (promethazine 25 mg oral tablet) 1 tab(s) by mouth Every 4 hours as needed for as needed for nausea/vomiting Kidney stone Printed Prescription Changed promethazine (promethazine 25 mg oral tablet) Unchanged busPIRone (busPIRone 10 mg oral tablet) 1 tab(s) by mouth Three (3) times a day Unchanged estradiol (estradiol 0.5 mg oral tablet) 1 tab(s) by mouth Once a day Unchanged gabapentin (gabapentin 400 mg oral capsule) 1 cap by mouth Once a day as needed for Muscle pain Unchanged hydrOXYzine (hydrOXYzine hydrochloride 25 mg oral tablet) 1 tab(s) by mouth Four (4) times a day as needed for for itching Unchanged mirtazapine (mirtazapine 30 mg oral tablet) 1 tab(s) by mouth Daily at bedtime Unchanged nystatin (nystatin 100,000 units/ mL oral suspension) Unchanged OXcarbazepine (OXcarbazepine 300 mg oral tablet) 2 tab(s) by mouth Two (2) times a day Unchanged PARoxetine (PARoxetine 10 mg oral tablet) 1 tab(s) by mouth Once a day Unchanged prazosin (prazosin 1 mg oral capsule) Unchanged QUEtiapine (SEROquel 100 mg oral tablet) 1 tab(s) by mouth Daily at bedtime Unchanged sertraline (Zoloft 100 mg oral tablet) 1 tab(s) by mouth Once a day Unchanged sucralfate (sucralfate 1 g oral tablet) 1 tab(s) by mouth Two (2) times a day Unchanged tamsulosin (Flomax 0.4 mg oral capsule) 1 cap by mouth Once a day Duration: 5 Days Unchanged triamcinolone topical (triamcinolone 0.1% topical paste) Please take this list to your next doctor s visit. Bring all medications you take, including over the counter medications, herbals and other supplements with you to your doctor s visit. Patients and families are reminded to discard old lists and to update any records with all medication providers or retail pharmacies. Education Materials Identifying Kidney Stones Your kidneys filter your blood and release chemicals into the urine. If certain chemicals build up in the kidneys, they can form a stone. There are 4 general types of kidney stones. Your kidney stone s size and shape determine whether itis likely to pass by itself. Knowing what a stone is made of (its composition) helps your healthcare provider find its cause. Then he or she can suggest the best treatment. X-rays or scans can help show the stone's size and shape. Your healthcare provider may also give you a strainer. You can use th is to catch the stone while passing urine, and the provider can then test the stone. Other urine and blood tests may be done to help identify the stone. These tests can also help identify causes for different types of stones. Size A stone may be as small as a grain of sand. Or it may be as large as a golf ball. Small stones may pass out of your body when you urinate. Shape Small, smooth, round stones may pass easily. Jagged-edged stones often lodge inside the kidney or ureter. Staghorn stones can fill the entire renal pelvis and calyces. Composition Most stones are made of calcium oxalate, a hard compound. Stones made of cystine or uric acid, or caused by infection (struvite stones), are less dense. Stones often contain more than one chemical. Treating your stones You and your healthcare provider will work together to form a treatment plan. Your provider may suggest that you let your stone pass naturally. Or you may manage it with medicines. Certain proceduresmay also help, such as SWL (shock wave lithotripsy) or using a camera inside the body to remove thestone (ureteroscopy). And you will be told how you can help prevent kidney stones in the future. [phone] [employer] [address] [place] [address]. All rights reserved. This information is not intended as a substitute for professional medical care. Always follow yourhealthcare professional's instructions. Additional Information VACCINATE! IT SAVES LIVES! Members of the community who have not yet received the COVID-19 vaccine and would like to receive it can visit one of [facility] vaccine clinics. There are many vaccine clinic locations within the [facility]. For locations and available times, please visit [email or web address]. It is important to note that some COVID mobile vaccine clinics are held outdoors and may be canceled in rainy orstormy conditions. To learn more about pediatric vaccinations (ages 5-11), we invite you to visit the [facility] webpage. [email or web address]/[email or web address] [email or web address] learn more about the COVID-19 vaccine, we invite you to visit the [facility] website for a list of frequently asked questions. [email or web address] _[email or web address]-Questions.pdf [facility] Patient Portal Access Instructions: Stay connected with your healthcare team and access your personal medical information anytime with the [facility] Patient Portal. If you would like a full copy of your medical records please contact the [facility] Medical Records Department Thursday through Thursday between 8a.m. and 4:30p.m. Please follow the directions below to access the portal: 1.Access the email account you provided upon registration to the [facility].2.Look for an invitation email from [facility].3.Open the email and access the invitation link: Accept [facility]itation to [facility]4.Fill in the required xiong to create your account. Sign into [email or web address] with your username and password that you created in the above steps to stay up to date. You can then view a summary of results, a summary of your visits, and the ability to download your summaries to your computer or send the information securely to a physician. Remember that your healthcare information is confidential, so carefully consider who you will allow to register on the [facility] Patient Portal for access to your information. You can also access the [facility] Patient Portal on the [employer] mini. Simply click on Health Records under [employer] and then click on the [facility] logo. HOW TO SAFELY DISPOSE OF PRESCRIPTION MEDICATIONS Please use one of the following methods to safely dispose of your unused medications. 1.Use a drug disposal kit: the drug disposal pouch allows you to safely discard your old and unuseddrugs. Ask your nurse to give you one when you are discharged.2.Visit a local take-back location: Many local pharmacies and police departments have programs that collect old and unwanted prescriptiondrugs. Call your local pharmacy or go to http://bit.ly/6F2Aw8z to find one close to you.3.Make use of household items: Use cat litter or old coffee grounds to dispose medications if other options arenot available. Mix your drugs with these household products, seal them in an airtight container andthrow it into the garbage. Call [facility]: [phone] to be sure your drugs can be disposed of in this way. Some medicines may require a different approach.4.Never flush your medications down the toilet. IF YOU HAVE BEEN PRESCRIBED AN OPIOIDS FOR PAIN If you have been prescribed an opioid (such as hydrocodone, oxycodone or morphine), it is critical to understand the possible side effects and risks of opioid pain medications. Even when taken as directed, opioids can have several side effects including: Tolerance, meaning you might need to take more of a medication for the same pain relief. Nausea, vomiting and/or constipation. Sleepiness, dizziness, dry mouth, confusion, depression or itching. Physical dependence, meaning you have withdrawal symptoms when a medication is stopped ? this can develop within a few days. KNOW YOUR RESPONSIBILITIES It is important to know exactly how much and how often to take the opioid pain medications you are prescribed. Never take opioids in higher amounts or more often than prescribed. Do not combine opioids with alcohol or other drugs that cause drowsiness, such as benzodiazepines, also known as benzos,including diazepam and alprazolam, muscle relaxants or sleep aids. Never sell or share prescriptionopioids. This is illegal. Store opioids in a secure place and out of reach of others (including children, family, friends and visitors). The last page(s) of this document has been signed and retained as a CHART COPY Signatures Patient Education Materials Identifying Kidney Stones Medication Leaflets My discharge plan and instructions have been reviewed and explained to me and ISAM NICHOLE L understand my current condition and have read and understand these discharge instructions. I have received a written copy of the plan/instructions. If I have questions, I am aware that I should contact my doctor. 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 Multiplanar reformatted images are provided for review. Automated exposure control, iterative reconstruction, and/or weight based adjustment of the mA/kV was utilized to reduce the radiation dose to as low as reasonably achievable. COMPARISON: 02/06/2022 HISTORY: ORDERING SYSTEM PROVIDED HISTORY: Reason for Exam: RIGHT flank pain FINDINGS: The bilateral kidneys are symmetric in size. There is no perinephric stranding. No obstructing calculi are visualized. There are punctate nonobstructing bilateral renal calculi best appreciated on the coronal view. The ureters are normal in course and caliber. There are multiple cysts measuring up to 3.1 cm in the liver that appear benign. These do not require dedicated imaging follow-up. The spleen, adrenal glands, and pancreas are within normal limits. The patient is status post cholecystectomy. The large and small bowel are normal in caliber. The appendix is not visualized. No free intraperitoneal fluid or air is identified. There is no lymphadenopathy. The aorta is normal in caliber. The bladder is incompletely distended. There is no visible fracture or aggressive osseous lesion. Limited images of the lower thorax are noncontributory. IMPRESSION: Bilateral punctate nonobstructing renal calculi. No obstructive uropathy. Interpreted by: Alice Carvajal MD Preliminary Report By: Alice Carvajal MD Electronically signed By Alice Carvajal MD Dictated Date: 10/12/2022 10:42:20 AM Prelim Date: 10/12/2022 10:46:23 AM Sign Date: 10/12/2022 10:46:23 AM Ordering Provider: ANNE BURROWS [facility]01-29-2023 Note ORIGINAL EXAMINATION: CT OF THE ABDOMEN AND PELVIS WITHOUT CONTRAST10/12/2022 10:38 am TECHNIQUE: CT of the abdomen and pelvis was performed without the administration of intravenous contrast. Multiplanar reformatted images are provided for review. Automated exposure control, iterative reconstruction, and/or weight based adjustment of the mA/kV was utilized to reduce the radiation dose to as low as reasonably achievable. COMPARISON: 02/06/2022 HISTORY: ORDERING SYSTEM PROVIDED HISTORY: Reason for Exam: RIGHT flank pain FINDINGS: The bilateral kidneys are symmetric in size. There is no perinephric stranding. No obstructing calculi are visualized. There are punctate nonobstructing bilateral renal calculi best appreciated on the coronal view. The ureters are normal in course and caliber. There are multiple cysts measuring up to 3.1 cm in the liver that appear benign. These do not require dedicated imaging follow-up. The spleen, adrenal glands, and pancreas are within normal limits. The patient is status post cholecystectomy. The large and small bowel are normal in caliber. The appendix is not visualized. No free intraperitoneal fluid or air is identified. There is no lymphadenopathy. The aorta is normal in caliber. The bladder is incompletely distended. There is no visible fracture or aggressive osseous lesion. Limited images of the lower thorax are noncontributory. IMPRESSION: Bilateral punctate nonobstructing renal calculi. No obstructive uropathy. Interpreted by: Alice Carvajal MD Preliminary Report By: Alice Carvajal MD Electronically signed By Alice Carvajal MD Dictated Date: 10/12/2022 10:42:20 AM Prelim Date: 10/12/2022 10:46:23 AM Sign Date: 10/12/2022 10:46:23 AM Ordering Provider: [facility]01-03-2023 Miscellaneous Notes* Telephone Encounter - Isabel Arias PA-C - 09/16/2022 7:43 AM EST Noted. Agree. * Telephone Encounter - Lara Mercado LPN - 09/15/2022 2:36 PM EST Pt states she has had 2 stools that were dark green in color. Pt says stools were soft but not diarrhea. Pt states she has a stomachache but states she has ibs. Pt notified green in not worrisome & to push fluids. Pt instructed to call if this is persistent. Any other info to pass along to pt? Lara Mercado LPN documented [facility]12-27-2022 Miscellaneous Notes* Telephone Encounter - Milly Henderson APRN.CNP - 09/09/2022 11:30 AM EST I advised patient if she believes the Naproxen is bothering her stomach, she can stop taking it. Also advised her the clindamycin may be the cause of her stomach pain. However, she has allergies to other medications that may be prescribed for dental pain. Patient verbalized understanding. Milly Henderson APRN.MANUELITO * Telephone Encounter - Renetta Hernández RN - 09/09/2022 10:11 AM EST Patient calling and discussed that she was seen in [facility] yesterday due to dental pain. She was prescribed clindamycin and naproxen. She states she has been taking both medications withfood. She is calling to state she has been having stomach pain and nausea since yesterday and believes the naproxen is causing this. She is not taking any OTC medications except for tylenol. She has been eating a bland diet. She is asking if [facility] can advise her regarding the stomach pain that may be due to the naproxen? Please advise patient. Thank you. documented in this encounterKnox [facility] Hospital12-26-2022 History of Present illness Narrative* Holly Fraga APRN.MANUELITO - 09/08/2022 11:33 AM EST This note was created using [employer]. Subjective Sally Vargas is a 42 year old female. 42 year old female with PMH migraines, depression, evan, and anxiety presents for dental pain Acute onset several days ago Right lower back molars States this morning upon awakening, she noticed that she had swelling of right cheek. States she has a longstanding history of dental issues. Her upper teeth have all been extracted. Endorses that she is scheduled next month at [facility] to have all of her bottom teeth extricated Denies fever or chills. Denies inability to open or close mouth. Patient requesting Tramadol The history is provided by the patient. No analyst geochemical prospecting was used. Mouth/Lip Problem This is a recurrent problem. The current episode started in the past 7 days. The problem occurs constantly. The problem has been gradually worsening. Associated symptoms include headaches. Pertinent negatives include no abdominal pain, anorexia, arthralgias, change in bowel habit, chest pain, chills, congestion, coughing, diaphoresis, fatigue, fever, joint swelling, myalgias, nausea, neck pain, numbness, rash, sore throat, swollen glands, urinary symptoms, vertigo, visual change, vomiting or weakness. Nothing aggravates the symptoms. Treatments tried: Tylenol. The treatment provided no relief. PAST MEDICAL HISTORY Diagnosis Date Allergic rhinitis, cause unspecified 05/17/2008spring and summer Benign liver cyst 05/24/2010 CT scan at [facility] 11/2009 and 04/2010 showe 4 mm increase in size. No pain. No elevated LFTs on 03/11/2010. Calculus of kidney 05/17/[address] Nicolas: Hospitalized age 20, and again later -- no procedures so far ([facility] [address] [facility]) Cancer (HCC) COVID-19 virus infection 10/07/202109/2021 Diverticulosis Dysmenorrhea Hemorrhoids History of blood transfusion Impaired fasting glucose 05/17/2008 Sugar 104 fasting, 04/21 Marijuana use 07/10/2020 ER visit 07/06/2020, [place] MIGRAINE 05/17/2008 Has used imitrex with good response; Keeps Vicodin on hand when needed; Ovarian cyst 07/15/2012 Pancreatitis Smoker 05/17/2008 Started age 26, 1/2 a PPD 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, mild esophagitis, 2 cm hiatal hernia EGD W/O [facility] SPEC VARICIES INJ 05/28/2020 LIG/TRNSXJ FLP TUBE ABDL/VAG APPR UNI/BI OOPHORECTOMY PARTIAL/TOTAL UNI/BI 2009 Oophorectomy right, still has left OOPHORECTOMY PARTIAL/TOTAL UNI/BI 01/2015 left removed PAST SURGICAL HISTORY OF uterine ablation PAST SURGICAL HISTORY OF cyst removal TOTAL ABDOMINAL HYSTERECT W/WO RMVL TUBE OVARY 08/31/2006 Hysterectomy, [facility] Penicillins, Cephalexin, Chlorhexidine, Toradol [Ketorolac], Tramadol, Asa [Salicylates],Contrast Dye [Iodine], Ibuprofen, and Prednisone MEDICATIONS gabapentin (NEURONTIN) 800 mg tablet TAKE 1 TABLET BY MOUTH THREE TIMES A DAY albuterol HFA (VENTOLIN HFA) 90 mcg/actuation inhaler Inhale 2 Puffs as instructed every 4 hours asneeded for wheezing/shortness of breath. cholecalciferol, Vitamin D3, (VITAMIN D3) 1,250 mcg (50,000 unit) cap capsule Take 1 capsule by mouth one time a week. cyanocobalamin (VITAMIN B-12) 1,000 mcg tab Take 1 tablet by mouth once daily. atorvastatin (LIPITOR) 10 mg tablet Take 1 tablet by mouth daily at bedtime. For cholesterol. QUEtiapine (SEROQUEL) 50 mg tablet Take 50 mg by mouth daily at bedtime. DULoxetine (CYMBALTA) 20 mg capsule Take 20 mg by mouth once daily. pantoprazole DR (PROTONIX) 40 mg tablet Take 1 tablet by mouth once daily. Take on empty stomach, 1/2 hr before meal. diphenhydrAMINE (BENADRYL) 25 mg capsule Take 50 mg by mouth at bedtime as needed. Estradiol (ESTRACE) 0.5 mg tablet Take 1 tablet by mouth once daily. PARoxetine (PAXIL) 10 mg tablet Take 1 tablet by mouth once daily. clindamycin (CLEOCIN) 150 mg capsule Take 3 capsules by mouth three times daily for 5 days. naproxen (NAPROSYN) 500 mg tablet Take 1 tablet by mouth twice daily as needed (pain/inflammation, take with food.). FAMILY HISTORY Problem Relation Age of Onset Thyroid Mother unsure of details Arthritis Mother fibromyalgia Blood Disease Mother blood clots, unsure of details (aorta?) No Known Problems Father No Known Problems Sister No Known Problems Sister No Known Problems Brother Diabetes Maternal Grandmother Diabetes Maternal Grandfather Lipids Maternal Grandfather Stroke Maternal Grandfather Coronary Artery Disease Maternal Grandfather Cataract Maternal Grandfather Pancreatic Cancer Maternal Grandfather Diabetes Paternal Grandmother Diabetes Paternal Grandfather Coronary Artery Disease Paternal Grandfather No Known Problems Son No Known Problems Son Breast Cancer Maternal Aunt Lipids Maternal Uncle Coronary Artery Disease Maternal Uncle other (ovarian ca) Other maternal cousin Colon Cancer No Family History Social History Tobacco Use Smoking status: Former Packs/day: 0.50 Years: 3.00 Pack years: 1.50 Types: Cigarettes Quit date: 01/12/2017 Years since quittin.6 Smokeless tobacco: Never Tobacco comments: Approx. 3 cigarettes daily-1 pack every week Vaping Use Vaping Use: Never used Substance Use Topics Alcohol use: Yes Comment: Occasional Drug use: Never Review of Systems Constitutional: Negative for chills, diaphoresis, fatigue and fever. HENT: Positive for dental problem. Negative for congestion, ear discharge, ear pain, rhinorrhea, sinus pressure, sinus pain and sore throat. Eyes: Negative for pain, discharge, redness and itching. Respiratory: Negative for apnea, cough, choking and chest tightness. Cardiovascular: Negative for chest pain and leg swelling. Gastrointestinal: Negative for abdominal pain, anorexia, change in bowel habit, nausea and vomiting. Endocrine: Negative for cold intolerance and heat intolerance. Musculoskeletal: Negative for arthralgias, joint swelling, myalgias and neck pain. Skin: Negative for color change, pallor and rash. Allergic/Immunologic: Negative for environmental allergies, food allergies and immunocompromised state. Neurological: Positive for headaches. Negative for dizziness, vertigo, facial asymmetry, weakness and numbness. Hematological: Negative for adenopathy. Does not bruise/bleed easily. Psychiatric/Behavioral: Negative for agitation and behavioral problems. Objective BP 128/76 Pulse 80 Temp 36.3 C (97.3 F) Resp 21 Wt 100.7 kg (222 lb) LMP 08/10/2006 SpO2 99% BMI 41.38 kg/m Physical Exam Vitals and nursing note reviewed. Constitutional: General: She is not in acute distress. Appearance: Normal appearance. She is normal weight. She is not ill-appearing, toxic-appearing or diaphoretic. HENT: Head: Normocephalic and atraumatic. Right Ear: Ear canal and external ear normal. Left Ear: Ear canal and external ear normal. Nose: Nose normal. No congestion or rhinorrhea. Mouth/Throat: Mouth: Mucous membranes are moist. Pharynx: No oropharyngeal exudate or posterior oropharyngeal erythema. Comments: Upper teeth surgically absent Lower teeth with widespread decay Missing dental integrity. No abscess. No Benjamin No trismus. Eyes: General: Right eye: No discharge. Left eye: No discharge. Extraocular Movements: Extraocular movements intact. Conjunctiva/sclera: Conjunctivae normal. Pupils: Pupils are equal, round, and reactive to light. Cardiovascular: Rate and Rhythm: Normal rate and regular rhythm. Pulses: Normal pulses. Heart sounds: Normal heart sounds. No murmur heard. No friction rub. Pulmonary: Effort: Pulmonary effort is normal. No respiratory distress. Breath sounds: Normal breath sounds. No stridor. No wheezing, rhonchi or rales. Chest: Chest wall: No tenderness. Abdominal: General: Abdomen is flat. There is no distension. Palpations: Abdomen is soft. There is no mass. Tenderness: There is no abdominal tenderness. There is no right CVA tenderness, left CVA tenderness, guarding or rebound. Hernia: No hernia is present. Musculoskeletal: General: No swelling, tenderness, deformity or signs of injury. Normal range of motion. Cervical back: Normal range of motion and neck supple. No rigidity. Right lower leg: No edema. Left lower leg: No edema. Lymphadenopathy: Cervical: No cervical adenopathy. Skin: General: Skin is warm and dry. Coloration: Skin is not jaundiced or pale. Findings: No bruising, erythema, lesion or rash. Neurological: General: No focal deficit present. Mental Status: She is alert and oriented to person, place, and time. Cranial Nerves: No cranial nerve deficit. Sensory: No sensory deficit. Motor: No weakness. Coordination: Coordination normal. Gait: Gait normal. Psychiatric: Mood and Affect: Mood normal. Behavior: Behavior normal. Thought Content: Thought content normal. Judgment: Judgment normal. Assessment and Plan ASSESSMENT/PLAN: 1. Pain, dental - ICD9: 525.9, ICD10: K08.89 Chronic in nature This flare up occurred a few days ago She has appointment with [facility] next month to have all lower teeth extracted. Patient requesting Tramadol, informed that the [facility] does not provide controlled substance RX Clindamycin and Naprosyn Encouraged to keep appointment with dental next month. Holly Fraga APRN.CLASSROOM TEACHER documented in this encounterKnox [facility] Hospital12-07-2022 Miscellaneous Notes* Telephone Encounter - Rema Lehman MA - 08/20/2022 12:46 PM EST Will close TE at this time. Rema Lehman MA * Telephone Encounter - Jigar Bernardo LPN - 08/14/2022 12:40 PM EST Sent pt a message via to contact office. Jigar Bernardo LPN * Telephone Encounter - Jigar Bernardo LPN - 08/12/2022 12:36 PM EST Left message for pt to contact office. Jigar Bernardo LPN * Telephone Encounter - Marcelino Albert MD - 08/12/2022 12:11 PM EST Please advise patient she will need to establish with a new PCP if staying with [facility] in [place] since she has stated, I'm not her PCP and then remove me as PCP. * Telephone Encounter - Ashlyn Recio RN - 08/12/2022 11:53 AM EST Pt called and is notified of providers message and instructions. Told her I could look for an appointment for her with her primary care team. She reports she doesn't have a PCP. She states she see Isabel WARE. I said she works with Dr Albert, so technically he is her PCP. She state, He ain't my PCP I haven't seen him in years.. Pt states she doesn't have a licence and she can't get here. Pulled out the information for the [facility], and Pt said she has no money. Let her know it's only a dollar. Pt states, Never mind I'll take care of it myself., and hung up on me. Ashlyn Recio RN * Telephone Encounter - No Akers APRN.CNP - 08/12/2022 11:43 AM EST See office note from 08/04 and phone note from 08/05. If cough is no better, she needs an in-officevisit w/ primary team. Please help schedule. * Telephone Encounter - Ashlyn Recio RN - 08/12/2022 11:21 AM EST Pt called in and reports She has had the same cough for a month now. She reports it is a dry cough that keeps her up at night. She states she was diagnosed with Bronchitis and was on steroids, and they helped a little bit. She is on cough syrup and that is helping a little but was asking if she could get more. Reports a runny nose and some wheezing. States she has the albuterol inhaler that helps a little. Pt reports provider had told her to call in with an update after she finished the steroids. Please call and advise. Patient has been identified by name and date of : Yes Patient phones for refill(s): Requested Prescriptions Pending Prescriptions Disp Refills codeine-guaiFENesin (GUAIFENESIN AC) 10-100 mg/5 mL syrup 118 mL 0 Sig: Take 10 mL by mouth three times daily as needed for cough for up to 7 days. Date of last office visit in primary care: 08/04/22 Future visit: none Last 2 Encounter Wt Readings: Date: Wt: 07/18/2022 95.3 kg (210 lb) 06/26/2022 94.8 kg (209 lb) Previous labs/tests for medication: Blood Pressure: BUN (mg/dL) Date Value 06/26/2022 11 11/14/2020 10 Sodium (mmol/L) Date Value 06/26/2022 139 11/14/2020 137 Last 1 Encounter BP Readings: Date: BP: 07/18/2022 110/80 Liver Function: ALT (U/L) Date Value 06/26/2022 17 11/14/2020 16 AST (U/L) Date Value 06/26/2022 14 11/14/2020 17 Please advise. Thank you. Ashlyn Recio RN documented in this encounterKnox Community Hospital12-01-2022 Miscellaneous Notes* Telephone Encounter - Paradise Ott RN - 08/14/2022 11:33 AM EST Images from the original note were not included. Provider: Rashid Figueroa CNP pharmacy requesting refill via [employer] . Please E-Scribe Last OV: 11-19-21 with Rashid Figueroa APRN.[facility] Future OV: N/A Last prescribed: 01-27-22 Anticonvulsant Refill Checklist Passed 08/14/2022 11:18 AM CBC within the last 12 months Lytes within the last 12 months LFT within the last 12 months Serum Creatinine within the last 12 month Visit with provider within the last 12 months Requested Prescriptions Pending Prescriptions Disp Refills gabapentin (NEURONTIN) 800 mg tablet [Pharmacy Med Name: GABAPENTIN 800 MG TABLET] 90 tablet 2 Sig: TAKE 1 TABLET BY MOUTH THREE TIMES A DAY Request sent to provider to review Paradise Ott RN documented in this encounterKnox Community Hospital11-22-2022 Miscellaneous Notes* Telephone Encounter - Renetta Hernández RN - 08/05/2022 1:07 PM EST Detailed message left on pt's identified and secure VM. Renetta Hernández RN * Telephone Encounter - No Akers APRN.CNP - 08/05/2022 12:49 PM EST Script sent. Will need appt if no better. No Akers APRN.MANUELITO * Telephone Encounter - Ivanna Torre RN - 08/05/2022 12:08 PM EST Patient calls to ask if provider would be willing to send in a prescription for Guaifenesin AC cough syrup. She forgot to ask last night during VV. Pended for review. Requesting it be sent to [facility] in [place]. Ivanna Torre RN documented in this encounterKnox Community Hospital11-21-2022 History of Present illness Narrative* No Akers APRN.CNP - 08/04/2022 5:01 PM EST Chief Complaint Patient presents with: Telemedicine Patient was offered a virtual/telemedicine appointment in lieu of an office visit due to recommendations to reduce patient exposure to COVID-19. Video was used for evaluation of this patient. Patient is aware of limitations of performing the visit without a face to face visit in the office setting and agrees. Patient agrees to the visit: Yes Patient Location: [facility] Sally Vargas is a 41 year old female who is contacted today for a virtual visit This is an established patient of Dr. Marcelino Albert MD Reports: Pt presents today for complaint of ongoing cough. Has done antibiotics, went to the ER, using albuterol twice daily, cough syrup. Refer that she would expectorated a little bit of mucus -- will get some blood mixed in it. + runny nose. Head been pounding. No n/v/d. No fevers/chills. Some right ear pain. She was seen in the ER last week. She has completed doxy. ER offered prednisone, but she declined. Reports it makes her agitated. She reports that she is able to tolerate the medrol. She is a smoker. She reports that she was evaluated by cardiology a year ago. Reports she had PFTs at that time, which was normal. These records are not available at this time. Past medical history, appointments, medications, allergies reviewed 08/04/2022 Previous Medical History PAST MEDICAL HISTORY Diagnosis Date Allergic rhinitis, cause unspecified 05/17/2008 Spring and summer Benign liver cyst 05/24/2010 CT scan at [facility] 11/2009 and 04/2010 showe 4 mm increase in size. No pain. No elevated LFTs on 03/11/2010. Calculus of kidney 05/17/[address] Nicolas: Hospitalized age 20, and again later -- no procedures so far [facility] [address] [facility]) Cancer (HCC) COVID-19 virus infection 10/07/202109/2021 Diverticulosis Dysmenorrhea Hemorrhoids History of blood transfusion Impaired fasting glucose 05/17/2008 Sugar 104 fasting, 04/21 Marijuana use 07/10/2020 ER visit 07/06/2020, [place] MIGRAINE 05/17/2008 Has used imitrex with good response; Keeps Vicodin on hand when needed; Ovarian cyst 07/15/2012 Pancreatitis Smoker 05/17/2008 Started age 26, 1/2 a PPD Previous Surgical History 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, mild esophagitis, 2 cm hiatal hernia EGD W/O [facility] SPEC VARICIES INJ 05/28/2020 LIG/TRNSXJ FLP TUBE ABDL/VAG APPR UNI/BI OOPHORECTOMY PARTIAL/TOTAL UNI/BI 2009 Oophorectomy right, still has left OOPHORECTOMY PARTIAL/TOTAL UNI/BI 01/2015 left removed PAST SURGICAL HISTORY OF uterine ablation PAST SURGICAL HISTORY OF cyst removal TOTAL ABDOMINAL HYSTERECT W/WO RMVL TUBE OVARY 08/31/2006 Hysterectomy, [facility] Family History FAMILY HISTORY Problem Relation Age of Onset Thyroid Mother unsure of details Arthritis Mother fibromyalgia Blood Disease Mother blood clots, unsure of details (aorta?) No Known Problems Father No Known Problems Sister No Known Problems Sister No Known Problems Brother Diabetes Maternal Grandmother Diabetes Maternal Grandfather Lipids Maternal Grandfather Stroke Maternal Grandfather Coronary Artery Disease Maternal Grandfather Cataract Maternal Grandfather Pancreatic Cancer Maternal Grandfather Diabetes Paternal Grandmother Diabetes Paternal Grandfather Coronary Artery Disease Paternal Grandfather No Known Problems Son No Known Problems Son Breast Cancer Maternal Aunt Lipids Maternal Uncle Coronary Artery Disease Maternal Uncle other (ovarian ca) Other maternal cousin Colon Cancer No Family History Patient Allergies ALLERGIES Allergen Reactions Penicillins Rash Cephalexin Itching Chlorhexidine Rash Skin rash Toradol [Ketorolac] Rash Tramadol Rash Patient reports no allergy to Tramadol. Asa [Salicylates] Other: See Comments ulcers Contrast Dye [Iodin* Shortness of Breath Ibuprofen GI Upset Prednisone Other: See Comments makes agitated and mean Current Medications Current Outpatient Medications on File Prior to Visit Medication Sig albuterol HFA (VENTOLIN HFA) 90 mcg/actuation inhaler Inhale 2 Puffs as instructed every 4 hours asneeded for wheezing/shortness of breath. cholecalciferol, Vitamin D3, (VITAMIN D3) 1,250 mcg (50,000 unit) cap capsule Take 1 capsule by mouth one time a week. cyanocobalamin (VITAMIN B-12) 1,000 mcg tab Take 1 tablet by mouth once daily. atorvastatin (LIPITOR) 10 mg tablet Take 1 tablet by mouth daily at bedtime. For cholesterol. QUEtiapine (SEROQUEL) 50 mg tablet Take 50 mg by mouth daily at bedtime. DULoxetine (CYMBALTA) 20 mg capsule Take 20 mg by mouth once daily. pantoprazole DR (PROTONIX) 40 mg tablet Take 1 tablet by mouth once daily. Take on empty stomach, 1/2 hr before meal. gabapentin (NEURONTIN) 800 mg tablet Take 1 tablet by mouth three times daily for 90 days. diphenhydrAMINE (BENADRYL) 25 mg capsule Take 50 mg by mouth at bedtime as needed. Estradiol (ESTRACE) 0.5 mg tablet Take 1 tablet by mouth once daily. PARoxetine (PAXIL) 10 mg tablet Take 1 tablet by mouth once daily. No current facility-administered medications on file prior to visit. Social History Social History Tobacco Use Smoking status: Former Packs/day: 0.50 Years: 3.00 Pack years: 1.50 Types: Cigarettes Quit date: 01/12/2017 Years since quittin.5 Smokeless tobacco: Never Tobacco comments: Approx. 3 cigarettes daily-1 pack every week Vaping Use Vaping Use: Never used Substance Use Topics Alcohol use: Yes Comment: Occasional Drug use: Never EXAM: LMP 08/10/2006 Limited exam as visit was completed over the virtual platform. Virtual visit completed using video, limited exam completed. Patient sounds or appears ill: No General Appearance: Well appearing, alert, in no acute distress, well-hydrated, well nourished. Skin: Skin color normal Head: Normocephalic. No facial swelling or redness. EENT: Eyes nonreddened. No discharge. External ears nonreddened and no swelling. Neck: No mass or lesions. No swelling. FROM Patient is unable to speak in complete sentences: No Patient has labored breathing: No. Patient is audibly coughing: Yes Psych: Attitude - cooperative, easily engaged in conversation Affect - Euthymic, normal mood Mental status: Alert. Speech is clear and fluent with good repetition, comprehension Appearance - Normal hygiene and grooming appropriate Coordination: No abnormal or extraneous movements. Gait/Stance: Posture is normal. Health Maintenance List HEPATITIS B(1 of 3 - 3-dose series) Never done HEPATITIS C SCREENING Never done HIV SCREENING Never done MAMMOGRAM Never done COVID-19 VACCINE(3 - Booster for Lauren series) due on 11/21/2021 COLORECTAL CANCER SCREENING due on 05/08/2025 DTAP,TDAP,TD(2 - Td or Tdap) due on 05/28/2025 INFLUENZA Completed PAP TESTING Discontinued HPV TESTING Discontinued Data reviewed Last 5 Encounter BP Readings: Date: BP: 07/18/2022 110/80 06/26/2022 122/78 05/12/2022 128/88 11/04/2021 119/69 08/29/2021 128/76 BMI Readings from Last 5 Encounters: 07/18/22 : 39.14 kg/m 06/26/22 : 38.96 kg/m 05/12/22 : 39.03 kg/m 11/04/21 : 40.07 kg/m 08/29/21 : 39.87 kg/m Last 5 Encounter Wt Readings: Date: Wt: 07/18/2022 95.3 kg (210 lb) 06/26/2022 94.8 kg (209 lb) 05/12/2022 95 kg (209 lb 6.4 oz) 11/04/2021 97.5 kg (215 lb) 08/29/2021 95.7 kg (211 lb) Medication and allergy list reviewed, reconciled and updated 08/04/2022 ASSESSMENT/PLAN: 1. Acute cough - ICD9: 786.2, ICD10: R05.1 Continues w/ cough Discussed that difficult to treat without in-person assessment. Will try to obtain PFTs reports She reports that she is not able to tolerate prednisone d/t it makes her agitated. She reports that she was able to take the medrol dose pack in the past. Discussed increasing her inhaler use to every 4-6 hours as needed. Start medrol dose pack. If cough continues -- will need in-office eval. Discussed treatment plan and patient voices understanding. Patient's questions answered appropriately. Medications and potential side effects were discussed and patient voices understanding. Return to the office as scheduled or as needed for worsening/no improvement. No Akers APRN.CNP documented [facility]22 Miscellaneous Notes* Telephone Encounter - No Akers APRN.CNP - 07/29/2022 1:07 PM EST Noted. No Akers APRN.CNP * Telephone Encounter - Lexy Desouza LPN - 07/29/2022 12:29 PM EST Called pt and information listed below given. Pt declined apt and states she called her boyfriend and he is going to take her to the hospital. Pt states she is so weak. Lexy Desouza LPN * Telephone Encounter - No Akers APRN.CNP - 07/29/2022 12:19 PM EST If she is not improving, she needs an evaluation/assessment. Unfortunately, this will require a [id number] evaluation so we can assess her lungs. Recommend appointment or urgent care. * Telephone Encounter - Lexy Desouza LPN - 07/29/2022 12:03 PM EST Pt called and states she is not getting better and the cough is getting worse and she feels very tight in the chest. Pt aware she needs to get the x-ray done but has no transportation. Pt completed the cough medication and it help a little. Pt states she is not sleeping and no appetite. Pt asking for any advise you may have for her. Lexy Desouza LPN documented in this encounterKn[facility]11-15-2022 Hospital Discharge instructions Additional Instructions It is in your best interest to quit smoking. Because you smoke you may have a cough for an additional 2 to 4 weeks.[facility] Work Phone: 1([phone]) 986-720611-08-2022 History of Present illness Narrative* No Akers APRN.MANUELITO - 07/22/2022 2:03 PM EST Chief Complaint Patient presents with: Telemedicine Patient was offered a virtual/telemedicine appointment in lieu of an office visit due to recommendations to reduce patient exposure to COVID-19. Video was used for evaluation of this patient. Patient is aware of limitations of performing the visit without a face to face visit in the office setting and agrees. Patient agrees to the visit: Yes Patient Location: [facility] Sally Vargas is a 41 year old female who is contacted today for a virtual visit This is an established patient of Dr. Marcelino Albert MD Reports: Pt presents today with complaint of being sick over a week. Refers that she went to urgent care on /Thursday. Refers that her lungs were okay, but she was having cough/wheezing. Refers that when she was spitting up mucus, there was blood in it. Refers that she is not sleeping d/t cough. + sore throat. Gets runny. No ear pain. No fevers/chills. She was started on doxycycline. Tried OTC cough medicine and the cough medicine w/ phenergan. Tried cough drops. Past medical history, appointments, medications, allergies reviewed 07/22/2022 Previous Medical History PAST MEDICAL HISTORY Diagnosis Date Allergic rhinitis, cause unspecified 05/17/2008 Spring and summer Benign liver cyst 05/24/2010 CT scan at [facility] 11/2009 and 04/2010 showe 4 mm increase in size. No pain. No elevated LFTs on 03/11/2010. Calculus of kidney 05/17/[address] Nicolas: Hospitalized age 20, and again later -- no procedures so far ([facility], [address] [facility]) Cancer (HCC) COVID-19 virus infection 10/07/202109/2021 Diverticulosis Dysmenorrhea Hemorrhoids History of blood transfusion Impaired fasting glucose 05/17/2008 Sugar 104 fasting, 04/21 Marijuana use 07/10/2020 ER visit 07/06/2020, [place] MIGRAINE 05/17/2008 Has used imitrex with good response; Keeps Vicodin on hand when needed; Ovarian cyst 07/15/2012 Pancreatitis Smoker 05/17/2008 Started age 26, 1/2 a PPD Previous Surgical History 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, mild esophagitis, 2 cm hiatal hernia EGD W/O [facility] SPEC VARICIES INJ 05/28/2020 LIG/TRNSXJ FLP TUBE ABDL/VAG APPR UNI/BI OOPHORECTOMY PARTIAL/TOTAL UNI/BI 2009 Oophorectomy right, still has left OOPHORECTOMY PARTIAL/TOTAL UNI/BI 01/2015 left removed PAST SURGICAL HISTORY OF uterine ablation PAST SURGICAL HISTORY OF cyst removal TOTAL ABDOMINAL HYSTERECT W/WO RMVL TUBE OVARY 08/31/2006 Hysterectomy, MICHELINE Family History FAMILY HISTORY Problem Relation Age of Onset Thyroid Mother unsure of details Arthritis Mother fibromyalgia Blood Disease Mother blood clots, unsure of details (aorta?) No Known Problems Father No Known Problems Sister No Known Problems Sister No Known Problems Brother Diabetes Maternal Grandmother Diabetes Maternal Grandfather Lipids Maternal Grandfather Stroke Maternal Grandfather Coronary Artery Disease Maternal Grandfather Cataract Maternal Grandfather Pancreatic Cancer Maternal Grandfather Diabetes Paternal Grandmother Diabetes Paternal Grandfather Coronary Artery Disease Paternal Grandfather No Known Problems Son No Known Problems Son Breast Cancer Maternal Aunt Lipids Maternal Uncle Coronary Artery Disease Maternal Uncle other (ovarian ca) Other maternal cousin Colon Cancer No Family History Patient Allergies ALLERGIES Allergen Reactions Penicillins Rash Cephalexin Itching Chlorhexidine Rash Skin rash Toradol [Ketorolac] Rash Tramadol Rash Patient reports no allergy to Tramadol. Asa [Salicylates] Other: See Comments ulcers Contrast Dye [Iodin* Shortness of Breath Ibuprofen GI Upset Prednisone Other: See Comments makes agitated and mean Current Medications Current Outpatient Medications on File Prior to Visit Medication Sig Promethazine-DM (PHENERGAN-DM) 6.25-15 mg/5 mL syrup Take 5 mL by mouth four times daily as needed. doxycycline (VIBRA-TABS) 100 mg tablet Take 1 tablet by mouth twice daily for 10 days. cholecalciferol, Vitamin D3, (VITAMIN D3) 1,250 mcg (50,000 unit) cap capsule Take 1 capsule by mouth one time a week. cyanocobalamin (VITAMIN B-12) 1,000 mcg tab Take 1 tablet by mouth once daily. atorvastatin (LIPITOR) 10 mg tablet Take 1 tablet by mouth daily at bedtime. For cholesterol. QUEtiapine (SEROQUEL) 50 mg tablet Take 50 mg by mouth daily at bedtime. DULoxetine (CYMBALTA) 20 mg capsule Take 20 mg by mouth once daily. pantoprazole DR (PROTONIX) 40 mg tablet Take 1 tablet by mouth once daily. Take on empty stomach, 1/2 hr before meal. gabapentin (NEURONTIN) 800 mg tablet Take 1 tablet by mouth three times daily for 90 days. diphenhydrAMINE (BENADRYL) 25 mg capsule Take 50 mg by mouth at bedtime as needed. Estradiol (ESTRACE) 0.5 mg tablet Take 1 tablet by mouth once daily. PARoxetine (PAXIL) 10 mg tablet Take 1 tablet by mouth once daily. No current facility-administered medications on file prior to visit. Social History Social History Tobacco Use Smoking status: Former Packs/day: 0.50 Years: 3.00 Pack years: 1.50 Types: Cigarettes Quit date: 01/12/2017 Years since quittin.5 Smokeless tobacco: Never Tobacco comments: Approx. 3 cigarettes daily-1 pack every week Vaping Use Vaping Use: Never used Substance Use Topics Alcohol use: Yes Comment: Occasional Drug use: Never EXAM: LMP 08/10/2006 Limited exam as visit was completed over the virtual platform. Virtual visit completed using video, limited exam completed. Patient sounds or appears ill: No General Appearance: Well appearing, alert, in no acute distress, well-hydrated, well nourished. Skin: Skin color normal Head: Normocephalic. No facial swelling or redness. EENT: Eyes nonreddened. No discharge. External ears nonreddened and no swelling. Neck: No mass or lesions. No swelling. FROM Patient is unable to speak in complete sentences: No Patient has labored breathing: No. Patient is audibly coughing: Yes Psych: Attitude - cooperative, easily engaged in conversation Affect - Euthymic, normal mood Mental status: Alert. Speech is clear and fluent with good repetition, comprehension Appearance - Normal hygiene and grooming appropriate Coordination: No abnormal or extraneous movements. Gait/Stance: Posture is normal. Health Maintenance List HEPATITIS B(1 of 3 - 3-dose series) Never done HEPATITIS C SCREENING Never done HIV SCREENING Never done MAMMOGRAM Never done COVID-19 VACCINE(3 - Booster for Lauren series) due on 11/21/2021 COLORECTAL CANCER SCREENING due on 05/08/2025 DTAP,TDAP,TD(2 - Td or Tdap) due on 05/28/2025 INFLUENZA Completed PAP TESTING Discontinued HPV TESTING Discontinued Data reviewed Last 5 Encounter BP Readings: Date: BP: 07/18/2022 110/80 06/26/2022 122/78 05/12/2022 128/88 11/04/2021 119/69 08/29/2021 128/76 BMI Readings from Last 5 Encounters: 07/18/22 : 39.14 kg/m 06/26/22 : 38.96 kg/m 05/12/22 : 39.03 kg/m 11/04/21 : 40.07 kg/m 08/29/21 : 39.87 kg/m Last 5 Encounter Wt Readings: Date: Wt: 07/18/2022 95.3 kg (210 lb) 06/26/2022 94.8 kg (209 lb) 05/12/2022 95 kg (209 lb 6.4 oz) 11/04/2021 97.5 kg (215 lb) 08/29/2021 95.7 kg (211 lb) Medication and allergy list reviewed, reconciled and updated 07/22/2022 ASSESSMENT/PLAN: 1. Upper respiratory infection with cough and congestion - ICD9: 465.9, ICD10: J06.9 (primary diagnosis) -Continue the doxycycline. Stay well-hydrated. Patient continues to have problems with cough/sleep. We will go ahead and start Cheratussin as needed. Also will start an inhaler as needed. Declines medrol dose pack. Patient will also come in this week to get an x-ray of the chest. - CODEINE 10 MG-GUAIFENESIN 100 MG/5 ML ORAL LIQUID - ALBUTEROL SULFATE HFA 90 MCG/ACTUATION AEROSOL INHALER 2. Acute cough - ICD9: 786.2, ICD10: R05.1 - XR CHEST 2V FRONTAL/LAT - CODEINE 10 MG-GUAIFENESIN 100 MG/5 ML ORAL LIQUID - ALBUTEROL SULFATE HFA 90 MCG/ACTUATION AEROSOL INHALER Discussed treatment plan and patient voices understanding. Patient's questions answered appropriately. Medications and potential side effects were discussed and patient voices understanding. Return to the office as scheduled or as needed for worsening/no improvement. No Akers APRN.CL[employer]SRO[employer] TEACHER documented in this encounterKn[facility]11-04-2022 History of Present illness Narrative* Nasrin Dunlap PA-C - 07/18/2022 6:32 PM EDT This note was created using [employer]. Subjective Sally Vargas is a 41 year old female. HPI Patient presents with a chief complaint of cough and sinus congestion and pressure for 3 weeks. Shefeels like she is getting worse the past few days. No fever. No vomiting. She has tried zhob-edl-wijvihj cough medicines that are not helping. Her ribs have been sore from coughing. She did have COVID at the end of April of this year. No diarrhea or vomiting. Review of Systems Constitutional: Positive for fatigue. Negative for fever. HENT: Positive for congestion, sinus pressure and sinus pain. Negative for ear pain. Respiratory: Positive for cough. Negative for shortness of breath. Gastrointestinal: Negative. Genitourinary: Negative. Musculoskeletal: Negative. Neurological: Positive for headaches. All other systems reviewed and are negative. PAST MEDICAL HISTORY Diagnosis Date Allergic rhinitis, cause unspecified 05/17/2008 Spring and summer Benign liver cyst 05/24/2010 CT scan at [facility] 11/2009 and 04/2010 showe 4 mm increase in size. No pain. No elevated LFTs on 03/11/2010. Calculus of kidney 05/17/[address] Nicolas: Hospitalized age 20, and again later -- no procedures so far ([facility], [address] [facility]) Cancer (HCC) COVID-19 virus infection 10/07/202109/2021 Diverticulosis Dysmenorrhea Hemorrhoids History of blood transfusion Impaired fasting glucose 05/17/2008 Sugar 104 fasting, 04/21 Marijuana use 07/10/2020 ER visit 07/06/2020, [place] MIGRAINE 05/17/2008 Has used imitrex with good response; Keeps Vicodin on hand when needed; Ovarian cyst 07/15/2012 Pancreatitis Smoker 05/17/2008 Started age 26, 1/2 a PPD Current Outpatient Medications Medication Sig Dispense Refill cholecalciferol, Vitamin D3, (VITAMIN D3) 1,250 mcg (50,000 unit) cap capsule Take 1 capsule by mouth one time a week. 12 capsule 0 cyanocobalamin (VITAMIN B-12) 1,000 mcg tab Take 1 tablet by mouth once daily. 30 tablet 11 atorvastatin (LIPITOR) 10 mg tablet Take 1 tablet by mouth daily at bedtime. For cholesterol. 30 tablet 5 QUEtiapine (SEROQUEL) 50 mg tablet Take 50 mg by mouth daily at bedtime. DULoxetine (CYMBALTA) 20 mg capsule Take 20 mg by mouth once daily. pantoprazole DR (PROTONIX) 40 mg tablet Take 1 tablet by mouth once daily. Take on empty stomach, 1/2 hr before meal. 30 tablet 5 diphenhydrAMINE (BENADRYL) 25 mg capsule Take 50 mg by mouth at bedtime as needed. Estradiol (ESTRACE) 0.5 mg tablet Take 1 tablet by mouth once daily. PARoxetine (PAXIL) 10 mg tablet Take 1 tablet by mouth once daily. Promethazine-DM (PHENERGAN-DM) 6.25-15 mg/5 mL syrup Take 5 mL by mouth four times daily as needed.118 mL 0 doxycycline (VIBRA-TABS) 100 mg tablet Take 1 tablet by mouth twice daily for 10 days. 20 tablet 0 gabapentin (NEURONTIN) 800 mg tablet Take 1 tablet by mouth three times daily for 90 days. 90 tablet 2 No current facility-administered medications for this visit. 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, mild esophagitis, 2 cm hiatal hernia EGD W/O [facility] SPEC VARICIES INJ 05/28/2020 LIG/TRNSXJ FLP TUBE ABDL/VAG APPR UNI/BI OOPHORECTOMY PARTIAL/TOTAL UNI/BI 2009 Oophorectomy right, still has left OOPHORECTOMY PARTIAL/TOTAL UNI/BI 01/2015 left removed PAST SURGICAL HISTORY OF uterine ablation PAST SURGICAL HISTORY OF cyst removal TOTAL ABDOMINAL HYSTERECT W/WO RMVL TUBE OVARY 08/31/2006 Hysterectomy, MICHELINE FAMILY HISTORY Problem Relation Age of Onset Thyroid Mother unsure of details Arthritis Mother fibromyalgia Blood Disease Mother blood clots, unsure of details (aorta?) No Known Problems Father No Known Problems Sister No Known Problems Sister No Known Problems Brother Diabetes Maternal Grandmother Diabetes Maternal Grandfather Lipids Maternal Grandfather Stroke Maternal Grandfather Coronary Artery Disease Maternal Grandfather Cataract Maternal Grandfather Pancreatic Cancer Maternal Grandfather Diabetes Paternal Grandmother Diabetes Paternal Grandfather Coronary Artery Disease Paternal Grandfather No Known Problems Son No Known Problems Son Breast Cancer Maternal Aunt Lipids Maternal Uncle Coronary Artery Disease Maternal Uncle other (ovarian ca) Other maternal cousin Colon Cancer No Family History Social History Tobacco Use Smoking status: Former Packs/day: 0.50 Years: 3.00 Pack years: 1.50 Types: Cigarettes Quit date: 01/12/2017 Years since quittin.5 Smokeless tobacco: Never Tobacco comments: Approx. 3 cigarettes daily-1 pack every week Vaping Use Vaping Use: Never used Substance Use Topics Alcohol use: Yes Comment: Occasional Drug use: Never Objective BP 110/80 Pulse 74 Temp 36.8 C (98.3 F) (Tympanic) Resp 18 Wt 95.3 kg (210 lb) LMP 08/10/2006 SpO2 98% BMI 39.14 kg/m Physical Exam Vitals reviewed. Constitutional: Appearance: Normal appearance. HENT: Head: Normocephalic and atraumatic. Right Ear: Tympanic membrane, ear canal and external ear normal. Left Ear: Tympanic membrane, ear canal and external ear normal. Nose: Congestion present. Right Sinus: Maxillary sinus tenderness and frontal sinus tenderness present. Left Sinus: Maxillary sinus tenderness and frontal sinus tenderness present. Mouth/Throat: Mouth: Mucous membranes are moist. Pharynx: Oropharynx is clear. Cardiovascular: Rate and Rhythm: Normal rate and regular rhythm. Heart sounds: Normal heart sounds. Pulmonary: Effort: Pulmonary effort is normal. Breath sounds: Normal breath sounds. Comments: Harsh cough noted Musculoskeletal: Cervical back: Neck supple. Lymphadenopathy: Cervical: No cervical adenopathy. Skin: General: Skin is warm and dry. Findings: No rash. Neurological: Mental Status: She is alert. Assessment and Plan ASSESSMENT/PLAN: 1. Sinobronchitis - ICD9: 473.9, 490, ICD10: J32.9, J40 - Will begin treatment with Doxycycline - Supportive care with plenty of fluids, rest, and analgesia prn. - Follow up in 3-5 days if symptoms persist or worsen. Nasrin Dunlap PA-C documented in this encounterKn[facility] Hospital10-17-2022 Miscellaneous Notes* Telephone Encounter - Whit Guardado LPN - 06/30/2022 9:32 AM EDT Patient returned call and went over results, notes from Isabel WARE with understanding. Aware rx to pharmacy. * Telephone Encounter - Rema Mcfarland Cma - 06/30/2022 9:27 AM EDT Left message for patient to return call to office Rema Mcfarland Cma * Telephone Encounter - Isabel Arias PA-C - 06/30/2022 8:17 AM EDT Let patient know that her vit D level is also low. Will send in a vit d supplement for her to take. Need repeat levels in 3 months. documented in this encounterKn[facility] Hospital10-14-2022 Miscellaneous Notes* Telephone Encounter - Isabel Arias PA-C - 06/27/2022 1:36 PM EDT The following approved medication requests have been transmitted electronically. Requested Prescriptions Signed Prescriptions Disp Refills cyanocobalamin (VITAMIN B-12) 1,000 mcg tab 30 tablet 11 Sig: Take 1 tablet by mouth once daily. Authorizing Provider: ISABEL ARIAS atorvastatin (LIPITOR) 10 mg tablet 30 tablet 5 Sig: Take 1 tablet by mouth daily at bedtime. For cholesterol. Authorizing Provider: ISABEL ARIAS PA-C * Telephone Encounter - Vitor Russell LPN - 06/27/2022 1:32 PM EDT TC to pt, notified of results/provider response. She verbalized understanding. She is willing to start Lipitor, please send to pharmacy. Vitor Russell LPN * Telephone Encounter - Isabel Arias PA-C - 06/27/2022 1:00 PM EDT Let patient know that her vit b12 level is low. I will send in prescription for her to start but insurance may not cover. She should take b12 1000mcg daily. Cholesterol has increased. LDL is at 174 with goal under 130 and ideally closer to 100. Would she be willing to start cholesterol lowering med such as lipitor 10mg. The rest of her labs all look okay. Vit d still in process. Isabel Arias PA-C documented in this encounterKnox [facility] Hospital10-13-2022 History of Present illness Narrative* Isabel Arias PA-C - 06/26/2022 11:48 AM EDT Chief Complaint Patient presents with: Fatigue HPI Slaly Vargas is a 41 year old female who presents here today for Above Complaints.. Patient states she has had issues with fatigue for the past month. Psychiatry did recently change her medications and she just made those changes a couple days ago. Since the change she did not improvement in her sleep. She also is struggling with her weight. Last 4 Encounter Wt Readings: Date: Wt: 06/26/2022 94.8 kg (209 lb) 05/12/2022 95 kg (209 lb 6.4 oz) 11/04/2021 97.5 kg (215 lb) 08/29/2021 95.7 kg (211 lb) She was asked to do a sleep study in the past but she declined because of her claustrophobia. Past medical history, appointments, medications, allergies reviewed. Previous Medical History PAST MEDICAL HISTORY Diagnosis Date Allergic rhinitis, cause unspecified 05/17/2008spring and summer Benign liver cyst 05/24/2010 CT scan at [facility] 11/2009 and 04/2010 showe 4 mm increase in size. No pain. No elevated LFTs on 03/11/2010. Calculus of kidney 05/17/[address] Nicolas: Hospitalized age 20, and again later -- no procedures so far ([facility], [address] [facility]) Cancer (HCC) COVID-19 virus infection 10/07/202109/2021 Diverticulosis Dysmenorrhea Hemorrhoids History of blood transfusion Impaired fasting glucose 05/17/2008 Sugar 104 fasting, 04/21 Marijuana use 07/10/2020 ER visit 07/06/2020, [place] MIGRAINE 05/17/2008 Has used imitrex with good response; Keeps Vicodin on hand when needed; Ovarian cyst 07/15/2012 Pancreatitis Smoker 05/17/2008 Started age 26, 1/2 a PPD Previous Surgical History 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, mild esophagitis, 2 cm hiatal hernia LIG/TRNSXJ FLP TUBE ABDL/VAG APPR UNI/BI OOPHORECTOMY PARTIAL/TOTAL UNI/BI 2009 Oophorectomy right, still has left OOPHORECTOMY PARTIAL/TOTAL UNI/BI 01/2015 left removed PAST SURGICAL HISTORY OF uterine ablation PAST SURGICAL HISTORY OF cyst removal TOTAL ABDOMINAL HYSTERECT W/WO RMVL TUBE OVARY 08/31/06 Hysterectomy, MICHELINE Family History FAMILY HISTORY Problem Relation Age of Onset Thyroid Mother unsure of details Arthritis Mother fibromyalgia Blood Disease Mother blood clots, unsure of details (aorta?) No Known Problems Father No Known Problems Sister No Known Problems Sister No Known Problems Brother Diabetes Maternal Grandmother Diabetes Maternal Grandfather Lipids Maternal Grandfather Stroke Maternal Grandfather Coronary Artery Disease Maternal Grandfather Cataract Maternal Grandfather Pancreatic Cancer Maternal Grandfather Diabetes Paternal Grandmother Diabetes Paternal Grandfather Coronary Artery Disease Paternal Grandfather No Known Problems Son No Known Problems Son Breast Cancer Maternal Aunt Lipids Maternal Uncle Coronary Artery Disease Maternal Uncle other (ovarian ca) Other maternal cousin Colon Cancer No Family History Patient Allergies ALLERGIES Allergen Reactions Penicillins Rash Cephalexin Itching Chlorhexidine Rash Skin rash Toradol [Ketorolac] Rash Tramadol Rash Patient reports no allergy to Tramadol. Asa [Salicylates] Other: See Comments ulcers Contrast Dye [Iodin* Shortness of Breath Ibuprofen GI Upset Prednisone Other: See Comments makes agitated and mean Current Medications Current Outpatient Medications on File Prior to Visit Medication Sig QUEtiapine (SEROQUEL) 50 mg tablet Take 50 mg by mouth daily at bedtime. DULoxetine (CYMBALTA) 20 mg capsule Take 20 mg by mouth once daily. lamoTRIgine (LAMICTAL) 25 mg tablet Take 50 mg by mouth once daily. Promethazine-DM (PHENERGAN-DM) 6.25-15 mg/5 mL syrup Take 5 mL by mouth four times daily as needed. benzonatate (TESSALON PERLES) 100 mg capsule Take 1 capsule by mouth three times daily as needed for cough. gabapentin (NEURONTIN) 800 mg tablet Take 1 tablet by mouth three times daily for [address] (PROTONIX) 40 mg tablet Take 1 tablet by mouth twice daily. Take on empty stomach, 1/2 hr before meal. diphenhydrAMINE (BENADRYL) 25 mg capsule Take 50 mg by mouth at bedtime as needed. Estradiol (ESTRACE) 0.5 mg tablet Take 1 tablet by mouth once daily. PARoxetine (PAXIL) 10 mg tablet Take 1 tablet by mouth once daily. tiZANidine (ZANAFLEX) 4 mg tablet Take 4 mg by mouth once daily. traZODone (DESYREL) 100 mg tablet Take 100 mg by mouth daily at bedtime. (Patient not taking: Reported on 06/26/2022) meclizine (ANTIVERT) 25 mg tab Take 1 tablet by mouth three times daily. sucralfate (CARAFATE) 1 gram tablet Take 1 g by mouth four times daily. prazosin (MINIPRESS) 1 mg cap Take 1 mg by mouth daily at bedtime. No current facility-administered medications on file prior to visit. Social History Social History Tobacco Use Smoking status: Former Packs/day: 0.50 Years: 3.00 Pack years: 1.50 Types: Cigarettes Quit date: 01/12/2017 Years since quittin.4 Smokeless tobacco: Never Tobacco comments: Approx. 3 cigarettes daily-1 pack every week Vaping Use Vaping Use: Never used Substance Use Topics Alcohol use: Yes Comment: Occasional Drug use: Never Review of Symptoms REVIEW OF SYSTEMS GENERAL: No weight loss, malaise or fevers NECK: Negative for lumps, goiter, pain and significant neck swelling RESPIRATORY: Negative for cough, hemoptysis, wheezing, COPD, dyspnea or shortness of breath CARDIOVASCULAR: Negative for chest pain, leg swelling, hypertension, CHF or palpitations NEURO: No history of headaches, syncope, paralysis, seizures or tremors EXAM: BP 122/78 Pulse 82 Resp 16 Wt 94.8 kg (209 lb) LMP 08/10/2006 BMI 38.96 kg/m General Appearance: Well appearing, alert, in no acute distress, well-hydrated, well nourished.. Neck: Supple, no adenopathy; thyroid symmetric, normal size, no bruits. Lungs: Lungs clear to auscultation. No wheezing, rhonchi, rales.. Heart: RRR without murmur, gallop, or rubs. No ectopy. Extremities: No deformities, edema, skin discoloration, clubbing or cyanosis. Good capillary refill. . Peripheral Pulses: Normal. Health Maintenance List HEPATITIS B(1 of 3 - 3-dose series) Never done HEPATITIS C SCREENING Never done HIV SCREENING Never done MAMMOGRAM Never done COVID-19 VACCINE(3 - Booster for Lauren series) due on 11/21/2021 COLORECTAL CANCER SCREENING due on 05/08/2025 DTAP,TDAP,TD(2 - Td or Tdap) due on 05/28/2025 INFLUENZA Completed PAP TESTING Discontinued HPV TESTING Discontinued Data reviewed ASSESSMENT/PLAN: 1. Fatigue, unspecified type - ICD9: 780.79, ICD10: R53.83 (primary diagnosis) Check labs. Discussed sleep study but patient states she wouldn't be able to do it. - COMP METABOLIC PANEL - CBC + DIFF - TSH BLD - VITAMIN B12 BLOOD - VITAMIN D 25 HYDROXY - IRON + TIBC - FOLATE SERUM - T4 FREE/FREE THYROX 2. Former smoker - ICD9: V15.82, ICD10: Z87.891 3. Reactive depression - ICD9: 300.4, ICD10: F32.9 Cont with psych 4. Generalized anxiety disorder - ICD9: 300.02, ICD10: F41.1 - COMP METABOLIC PANEL 5. Impaired fasting glucose - ICD9: 790.21, ICD10: R73.01 - HGB A1C - COMP METABOLIC PANEL 6. Encounter for screening for cardiovascular disorders - ICD9: V81.2, ICD10: Z13.6 - LIPID PANEL, NONFASTING Isabel Arias PA-C [facility] Miscellaneous Notes* Telephone Encounter - Francisco Herrera RN - 06/05/2022 12:56 AM EDT Patient received her Flu shot on last Thursday and started with Fatigue , muscle pain , diarrhea nausea and abdominal pain. Patient advised on the symptoms of Flu vaccine by CDC VIS sheet . Patient declined Triage and feels that she does not have COVID symptoms, Patient states that she has an appointment on the June 182021 GO TO THE EMERGENCY ROOM OR CALL 911 IF: * You develop any new symptoms * Your condition worsens * You are concerned or anxious about your condition for any other reason. If you have any questions, you can call Nurse recreational therapist back. documented [facility] History of Present illness Narrative* No HaSAHLYN scruggs.CLASSROOM TEACHER - 05/27/2022 1:05 PM EDT Chief Complaint Patient presents with: Telemedicine Patient was offered a virtual/telemedicine appointment in lieu of an office visit due to recommendations to reduce patient exposure to COVID-19. Video was used for evaluation of this patient. Patient is aware of limitations of performing the visit without a face to face visit in the office setting and agrees. Patient agrees to the visit: Yes Patient Location: [facility] Sally Vargas is a 41 year old female who is contacted today for a virtual visit This is an established patient of Dr. Marcelino Albert MD Reports: Pt presents today with complaint of cough. Pt presents today with complaint of ongoing cough. Refers that she has a hard time sleeping and eating d/t the cough. Refers that is has been going on since the end of the last month. Refers that she will have to take a deep breath after coughing or talking. Reports that cough is not productive. Refers throat is sore from coughing. Has been taking nyquil/dayquil. No fever/chills. + tired and fatigue, but reports from coughing. Denies any wheezing. No hx of asthma. She had a virtual visit on 05/13 for a positive home covid test. Was ordered paxlovid at that time. Previously was evaluated for a cough and was ordered PFTs which she had never completed. Ex-smoker. Past medical history, appointments, medications, allergies reviewed 05/27/2022 Previous Medical History PAST MEDICAL HISTORY Diagnosis Date Allergic rhinitis, cause unspecified 05/17/2008 Spring and summer Benign liver cyst 05/24/2010 CT scan at [facility] 11/2009 and 04/2010 showe 4 mm increase in size. No pain. No elevated LFTs on 03/11/2010. Calculus of kidney 05/17/[address] Nicolas: Hospitalized age 20, and again later -- no procedures so far ([facility], [address] [facility]) Cancer (HCC) COVID-19 virus infection 10/07/202109/2021 Diverticulosis Dysmenorrhea Hemorrhoids History of blood transfusion Impaired fasting glucose 05/17/2008 Sugar 104 fasting, 04/21 Marijuana use 07/10/2020 ER visit 07/06/2020, [place] MIGRAINE 05/17/2008 Has used imitrex with good response; Keeps Vicodin on hand when needed; Ovarian cyst 07/15/2012 Pancreatitis Smoker 05/17/2008 Started age 26, 1/2 a PPD Previous Surgical History 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, mild esophagitis, 2 cm hiatal hernia LIG/TRNSXJ FLP TUBE ABDL/VAG APPR UNI/BI OOPHORECTOMY PARTIAL/TOTAL UNI/BI 2009 Oophorectomy right, still has left OOPHORECTOMY PARTIAL/TOTAL UNI/BI 01/2015 left removed PAST SURGICAL HISTORY OF uterine ablation PAST SURGICAL HISTORY OF cyst removal TOTAL ABDOMINAL HYSTERECT W/WO RMVL TUBE OVARY 08/31/06 Hysterectomy, MICHELINE Family History FAMILY HISTORY Problem Relation Age of Onset Thyroid Mother unsure of details Arthritis Mother fibromyalgia Blood Disease Mother blood clots, unsure of details (aorta?) No Known Problems Father No Known Problems Sister No Known Problems Sister No Known Problems Brother Diabetes Maternal Grandmother Diabetes Maternal Grandfather Lipids Maternal Grandfather Stroke Maternal Grandfather Coronary Artery Disease Maternal Grandfather Cataract Maternal Grandfather Pancreatic Cancer Maternal Grandfather Diabetes Paternal Grandmother Diabetes Paternal Grandfather Coronary Artery Disease Paternal Grandfather No Known Problems Son No Known Problems Son Breast Cancer Maternal Aunt Lipids Maternal Uncle Coronary Artery Disease Maternal Uncle other (ovarian ca) Other maternal cousin Colon Cancer No Family History Patient Allergies ALLERGIES Allergen Reactions Penicillins Rash Cephalexin Itching Chlorhexidine Rash Skin rash Toradol [Ketorolac] Rash Tramadol Rash Patient reports no allergy to Tramadol. Asa [Salicylates] Other: See Comments ulcers Contrast Dye [Iodin* Shortness of Breath Ibuprofen GI Upset Prednisone Other: See Comments makes agitated and mean Current Medications Current Outpatient Medications on File Prior to Visit Medication Sig lamoTRIgine (LAMICTAL) 25 mg tablet Take 50 mg by mouth once daily. Promethazine-DM (PHENERGAN-DM) 6.25-15 mg/5 mL syrup Take 5 mL by mouth four times daily as needed. benzonatate (TESSALON PERLES) 100 mg capsule Take 1 capsule by mouth three times daily as needed for cough. gabapentin (NEURONTIN) 800 mg tablet Take 1 tablet by mouth three times daily for [address] (PROTONIX) 40 mg tablet Take 1 tablet by mouth twice daily. Take on empty stomach, 1/2 hr before meal. diphenhydrAMINE (BENADRYL) 25 mg capsule Take 50 mg by mouth at bedtime as needed. Estradiol (ESTRACE) 0.5 mg tablet Take 1 tablet by mouth once daily. PARoxetine (PAXIL) 10 mg tablet Take 1 tablet by mouth once daily. tiZANidine (ZANAFLEX) 4 mg tablet Take 4 mg by mouth once daily. traZODone (DESYREL) 100 mg tablet Take 100 mg by mouth daily at bedtime. meclizine (ANTIVERT) 25 mg tab Take 1 tablet by mouth three times daily. sucralfate (CARAFATE) 1 gram tablet Take 1 g by mouth four times daily. prazosin (MINIPRESS) 1 mg cap Take 1 mg by mouth daily at bedtime. No current facility-administered medications on file prior to visit. Social History Social History Tobacco Use Smoking status: Former Packs/day: 0.50 Years: 3.00 Pack years: 1.50 Types: Cigarettes Quit date: 01/12/2017 Years since quittin.3 Smokeless tobacco: Never Tobacco comments: Approx. 3 cigarettes daily-1 pack every week Vaping Use Vaping Use: Never used Substance Use Topics Alcohol use: Yes Comment: Occasional Drug use: Never EXAM: [facility] 08/10/2006 Limited exam as visit was completed over the virtual platform. Virtual visit completed using video, limited exam completed. Patient sounds or appears ill: No General Appearance: Well appearing, alert, in no acute distress, well-hydrated, well nourished. Skin: Skin color normal Head: Normocephalic. No facial swelling or redness. EENT: Eyes nonreddened. No discharge. External ears nonreddened and no swelling. Neck: No mass or lesions. No swelling. FROM Patient is unable to speak in complete sentences: No Patient has labored breathing: No. Patient is audibly coughing: Yes Psych: Attitude - cooperative, easily engaged in conversation Affect - Euthymic, normal mood Mental status: Alert. Speech is clear and fluent with good repetition, comprehension Appearance - Normal hygiene and grooming appropriate Coordination: No abnormal or extraneous movements. Gait/Stance: Posture is normal. Health Maintenance List HEPATITIS B(1 of 3 - 3-dose series) Never done HEPATITIS C SCREENING Never done HIV SCREENING Never done MAMMOGRAM Never done INFLUENZA(1) due on 05/15/2022 COLORECTAL CANCER SCREENING due on 05/08/2025 DTAP,TDAP,TD(2 - Td or Tdap) due on 05/28/2025 COVID-19 VACCINE Completed PAP TESTING Discontinued HPV TESTING Discontinued Data reviewed Last 5 Encounter BP Readings: Date: BP: 05/12/2022 128/88 11/04/2021 119/69 08/29/2021 128/76 07/29/2021 118/76 06/18/2021 121/75 BMI Readings from Last 5 Encounters: 05/12/22 : 39.03 kg/m 11/04/21 : 40.07 kg/m 08/29/21 : 39.87 kg/m 07/29/21 : 40.85 kg/m 06/18/21 : 33.63 kg/m Last 5 Encounter Wt Readings: Date: Wt: 05/12/2022 95 kg (209 lb 6.4 oz) 11/04/2021 97.5 kg (215 lb) 08/29/2021 95.7 kg (211 lb) 07/29/2021 98.1 kg (216 lb 3.2 oz) 06/18/2021 80.7 kg (178 lb) Medication and allergy list reviewed, reconciled and updated 05/27/2022 ASSESSMENT/PLAN: 1. Subacute cough - ICD9: 786.2, ICD10: R05.2 She continues to have a cough after previous covid infection. Non-productive. She has a documented allergy to prednisone (makes agitated). She did take a medrol dose pack last year and doesn't recall problems. Will go ahead and start medrol dose pack. If no better/worsening, discussed that she really needs to come into the office so we can evaluate/assess her. Also discussed that she should completed the previously ordered PFTs to r/o underlying causes of cough. - METHYLPREDNISOLONE 4 MG TABLETS IN A DOSE PACK Discussed treatment plan and patient voices understanding. Patient's questions answered appropriately. Medications and potential side effects were discussed and patient voices understanding. Return to the office as scheduled or as needed for worsening/no improvement. No Akers APRN.CNP This note was partially generated using sevenload voice recognition system. Note was reviewed for accuracy. There may be minor misspellings or grammar miscues with Miramar Labson voice recognition. documented [facility] this encounter[facility]22 Miscellaneous Notes* Telephone Encounter - No Akers APRN.CNP - 05/13/2022 4:28 PM EDT See office notes. No Akers APRN.CNP * Telephone Encounter - Lexy Desouza LPN - 05/13/2022 11:54 AM EDT Pt calls and states the following: COVID 19 positive. COVID -19 DIAGNOSIS: 05-13-22 COVID-19 EXPOSURE: unknown ONSET: 05-12-22 WORST SYMPTOM: sore throat, headache, cough COUGH: yes x 2 weeks (dry cough) FEVER: no RESPIRATORY STATUS: chest tightness when coughing, short of breath with up walking [id number]: worse HIGH RISK DISEASE: none VACCINE: yes OTHER SYMPTOMS: loss of taste and smell, weak diarrhea, neck pain, chills, fatigued, muscle pain and aches DENIES: vomiting : no, hysterectomy Pt scheduled for phone apt . Pt having problems with MyChart. Lexy Desouza LPN documented in this [facility]22 History of Present illness Narrative* No Akers APRN.CNP - 05/13/2022 3:20 PM EDT Chief Complaint Patient presents with: Telemedicine Patient was offered a virtual/telemedicine appointment in lieu of an office visit due to recommendations to reduce patient exposure to COVID-19. Phone was used for evaluation of this patient. Patient is aware of limitations of performing the visit without a face to face visit in the office setting and agrees. Patient agrees to the visit: Yes Patient Location: [facility] Sally Vargas is a 41 year old female who is contacted today for a phone visit This is an established patient of Dr. Marcelino Albert MD Reports: + home covid test. Was in the hospital a couple of weeks ago. Admitted with vertigo and dehydration. She got discharged from the hospital on 05/02/22. Cough started on 05/03/22. She has been been doing covid testing daily. It was negative until this morning. + home test this morning. She was in urgent care yesterday. She had a chest xray yesterday which was normal. Refers that the cough got worse on Thursday and has been progressively worsening. Reports that hurt from coughing. Cough has been non-productive. + chills, no fevers. No head congestions. No n/v/d. Refers that she had covid back in June. Past medical history, appointments, medications, allergies reviewed 05/13/2022 Previous Medical History PAST MEDICAL HISTORY Diagnosis Date Allergic rhinitis, cause unspecified 05/17/2008 Spring and summer Benign liver cyst 05/24/2010 CT scan at [facility] 11/2009 and 04/2010 showe 4 mm increase in size. No pain. No elevated LFTs on 03/11/2010. Calculus of kidney 05/17/[address] Nicolas: Hospitalized age 20, and again later -- no procedures so far ([facility], [address] [facility]) Cancer (HCC) COVID-19 virus infection 10/07/202109/2021 Diverticulosis Dysmenorrhea Hemorrhoids History of blood transfusion Impaired fasting glucose 05/17/2008 Sugar 104 fasting, 04/21 Marijuana use 07/10/2020 ER visit 07/06/2020, [place] MIGRAINE 05/17/2008 Has used imitrex with good response; Keeps Vicodin on hand when needed; Ovarian cyst 07/15/2012 Pancreatitis Smoker 05/17/2008 Started age 26, 1/2 a PPD Previous Surgical History 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, mild esophagitis, 2 cm hiatal hernia LIG/TRNSXJ FLP TUBE ABDL/VAG APPR UNI/BI OOPHORECTOMY PARTIAL/TOTAL UNI/BI 2009 Oophorectomy right, still has left OOPHORECTOMY PARTIAL/TOTAL UNI/BI 01/2015 left removed PAST SURGICAL HISTORY OF uterine ablation PAST SURGICAL HISTORY OF cyst removal TOTAL ABDOMINAL HYSTERECT W/WO RMVL TUBE OVARY 08/31/06 Hysterectomy, MICHELINE Family History FAMILY HISTORY Problem Relation Age of Onset Thyroid Mother unsure of details Arthritis Mother fibromyalgia Blood Disease Mother blood clots, unsure of details (aorta?) No Known Problems Father No Known Problems Sister No Known Problems Sister No Known Problems Brother Diabetes Maternal Grandmother Diabetes Maternal Grandfather Lipids Maternal Grandfather Stroke Maternal Grandfather Coronary Artery Disease Maternal Grandfather Cataract Maternal Grandfather Pancreatic Cancer Maternal Grandfather Diabetes Paternal Grandmother Diabetes Paternal Grandfather Coronary Artery Disease Paternal Grandfather No Known Problems Son No Known Problems Son Breast Cancer Maternal Aunt Lipids Maternal Uncle Coronary Artery Disease Maternal Uncle other (ovarian ca) Other maternal cousin Colon Cancer No Family History Patient Allergies ALLERGIES Allergen Reactions Penicillins Rash Cephalexin Itching Chlorhexidine Rash Skin rash Toradol [Ketorolac] Rash Tramadol Rash Patient reports no allergy to Tramadol. Asa [Salicylates] Other: See Comments ulcers Contrast Dye [Iodin* Shortness of Breath Ibuprofen GI Upset Prednisone Other: See Comments makes agitated and mean Current Medications Current Outpatient Medications on File Prior to Visit Medication Sig benzonatate (TESSALON PERLES) 100 mg capsule Take 1 capsule by mouth three times daily as needed for cough. gabapentin (NEURONTIN) 800 mg tablet Take 1 tablet by mouth three times daily for [address] (PROTONIX) 40 mg tablet Take 1 tablet by mouth twice daily. Take on empty stomach, 1/2 hr before meal. promethazine (PHENERGAN) 25 mg tablet Take 1 tablet by mouth every 8 hours as needed (for nausea). (Patient not taking: Reported on 05/12/2022) buPROPion (WELLBUTRIN) 75 mg tablet Take 75 mg by mouth once daily. diphenhydrAMINE (BENADRYL) 25 mg capsule Take 50 mg by mouth at bedtime as needed. Estradiol (ESTRACE) 0.5 mg tablet Take 1 tablet by mouth once daily. PARoxetine (PAXIL) 10 mg tablet Take 1 tablet by mouth once daily. tiZANidine (ZANAFLEX) 4 mg tablet Take 4 mg by mouth once daily. (Patient not taking: Reported on 05/12/2022) traZODone (DESYREL) 100 mg tablet Take 100 mg by mouth daily at bedtime. meclizine (ANTIVERT) 25 mg tab Take 1 tablet by mouth three times daily. lubiprostone (AMITIZA) 8 mcg capsule Take 1 capsule by mouth twice daily with meals. sucralfate (CARAFATE) 1 gram tablet Take 1 g by mouth four times daily. OXcarbazepine (TRILEPTAL) 300 mg tablet OLANZapine (ZYPREXA) 5 mg tablet TAKE 1 TABLET BY MOUTH EVERYDAY AT BEDTIME diclofenac (VOLTAREN) 1 % topical gel Apply 2 g to affected area four times daily. busPIRone (BUSPAR) 10 mg tablet Take 10 mg by mouth twice daily. cyanocobalamin (VITAMIN B-12) 1,000 mcg tab Take 1 tablet by mouth once daily. omeprazole (PRILOSEC) 40 mg capsule Take 1 capsule by mouth twice daily. prazosin (MINIPRESS) 1 mg cap Take 1 mg by mouth daily at bedtime. No current facility-administered medications on file prior to visit. Social History Social History Tobacco Use Smoking status: Former Packs/day: 0.50 Years: 3.00 Pack years: 1.50 Types: Cigarettes Quit date: 01/12/2017 Years since quittin.3 Smokeless tobacco: Never Tobacco comments: Approx. 3 cigarettes daily-1 pack every week Vaping Use Vaping Use: Never used Substance Use Topics Alcohol use: Yes Comment: Occasional Drug use: Never EXAM: [facility] 08/10/2006 Limited exam as visit was completed over the phone platform. Virtual visit completed using video, limited exam completed. Patient sounds ill: Yes Patient is unable to speak in complete sentences: No Patient has labored breathing: No. Patient is audibly coughing: Yes Psych: Attitude - cooperative, easily engaged in conversation Health Maintenance List HEPATITIS B(1 of 3 - 3-dose series) Never done HEPATITIS C SCREENING Never done HIV SCREENING Never done MAMMOGRAM Never done INFLUENZA(1) due on 05/15/2022 COLORECTAL CANCER SCREENING due on 05/08/2025 DTAP,TDAP,TD(2 - Td or Tdap) due on 05/28/2025 COVID-19 VACCINE Completed PAP TESTING Discontinued HPV TESTING Discontinued Data reviewed Last 5 Encounter BP Readings: Date: BP: 05/12/2022 128/88 11/04/2021 119/69 08/29/2021 128/76 07/29/2021 118/76 06/18/2021 121/75 BMI Readings from Last 5 Encounters: 05/12/22 : 39.03 kg/m 11/04/21 : 40.07 kg/m 08/29/21 : 39.87 kg/m 07/29/21 : 40.85 kg/m 06/18/21 : 33.63 kg/m Last 5 Encounter Wt Readings: Date: Wt: 05/12/2022 95 kg (209 lb 6.4 oz) 11/04/2021 97.5 kg (215 lb) 08/29/2021 95.7 kg (211 lb) 07/29/2021 98.1 kg (216 lb 3.2 oz) 06/18/2021 80.7 kg (178 lb) Medication and allergy list reviewed, reconciled and updated 05/13/2022 ASSESSMENT/PLAN: 1. COVID-19 - ICD9: 079.89, ICD10: U07.1 Pt reports that she has had a cough for several weeks since getting out of the hospital. However, symptoms worsened 4 days ago. She reports daily home covid tests, which has been negative until today. Chest xray in urgent care yesterday was negative. - NIRMATRELVIR 300 MG (150 MG X2)-RITONAVIR 100 MG TABLET,DOSE PACK(EUA) - PROMETHAZINE-DM 6.25 MG-15 MG/5 ML ORAL SYRUP Discussed treatment plan and patient voices understanding. Patient's questions answered appropriately. Medications and potential side effects were discussed and patient voices understanding. Return to the office as scheduled or as needed for worsening/no improvement. Total appointment time on phone with patient = 11-20 minutes Nirmatrelvir/Ritonavir (Paxlovid) Eligibility and Patient Discussion [facility] Formulary Restriction Criteria: Adult outpatients 18 years and older with ALL of the following: [x] Patient has positive SARS-COV-2 viral test (PCR or antigen test) during current illness [x] Patient has symptoms for 5 days or less [x] Not requiring hospitalization at any time for management of COVID-19 [x] Not requiring supplemental oxygen or a change in baseline supplemental oxygen [x] Not utilized for pre-exposure or post-exposure prophylaxis for prevention of COVID-19 [x] Patient does not have severe renal impairment (eGFR < 30 mL/min) or severe hepatic impairment (Child-Dong Class C) [x] Meeting at least one of the criteria for high risk of progression to severe COVID-19: [] Age over 65 years [] Cancer [] Chronic kidney disease [] Chronic liver disease [] Chronic lung diseases, including cystic fibrosis [] Dementia or other neurological conditions [] Diabetes (type 1 or type 2) [] Disabilities, including Down syndrome and neurodevelopmental disorders [] Heart conditions [] HIV infection [] Immunocompromised state [x] Mental health conditions [] Medical related technological dependence (tracheostomy, gastrostomy, or positive pressure ventilation (not related to COVID) [x] Overweight and obesity (BMI greater or equal to 25 for adults) [] Physical inactivity [] [] Sickle cell disease or thalassemia [x] Smoking, current or former [] Solid organ or blood stem cell transplant [] Stroke or cerebrovascular disease [] Substance use disorders [] Tuberculosis [] People from racial and ethnic minority groups Criteria above are met: Yes Date of Positive Test:05/13/22 Date of Symptom Onset: 05/10/22 Patient received COVID vaccine: Yes Drug-Drug interactions reviewed: Yes. Drug interactions were identified and the following actions were taken -- advised to hold the trazodone while on the paxlovid. . I have discussed the use of the investigational therapeutic, nirmatrelvir/ritonavir, for the treatment of mild to moderate COVID-19 and its use under Emergency Use Authorization with the patient. The patient was informed that nirmatrelvir/ritonavir is not an FDA approved drug and that it is authorized for use under this Emergency Use Authorization. The patient was also informed of the significant known benefits and potential risks of nirmatrelvir/ritonavir, and the extent to which such potential risks and benefits are unknown. The patient was informed that there is mandatory reporting of all medication errors and serious adverse events potentially related to nirmatrelvir/ritonavir treatment within 7 calendar days from the onset of the event and that events up to 28 days after completion of therapy need to be reported. The discussion included alternatives to receiving nirmatrelvir/rit onavir, including clinical trials, and potential the risks and benefits of those alternatives. The patient was provided electronically with the Fact Sheet for Patients, Parents and Caregivers. The patient was also instructed that in addition to the treatment with nirmatrelvir/ritonavir, he/she should continue to self-isolate and use infection control measures (e.g., wear mask, isolate, social distance, avoid sharing personal items, clean and disinfect high touch surfaces, and frequent h andwashing) according to CDC guidelines. The patient stated understanding and gave verbal consent to proceeding with nirmatrelvir/ritonavir treatment. No Akers APRN.CNP May 13, 2022 12:53 PM documented in this encounterKn[facility]22 Instructions* Patient Instructions* No Akers APRN.CNP - 05/13/2022 12:51 PM EDT FACT SHEET FOR PATIENTS, PARENTS, AND CAREGIVERS EMERGENCY USE AUTHORIZATION (EUA) OF PAXLOVID FOR CORONAVIRUS DISEASE 2019 (COVID-19) You are being given this Fact Sheet because your healthcare provider believes it is necessary to provide you with PAXLOVID for the treatment of wuzh-mi-tptnsmup coronavirus disease (COVID-19) caused by the SARS-CoV-2 virus. This Fact Sheet contains information to help you understand the risks and benefits of taking the PAXLOVID you have received or may receive. The U.S. Food and Drug Administration (FDA) has issued an Emergency Use Authorization (EUA) to makePAXLOVID available during the COVID-19 pandemic (for more details about an EUA please see What is an Emergency Use Authorization? at the end of this document). PAXLOVID is not an FDA-approved medicine in the [place]. Read this Fact Sheet for information about PAXLOVID. Talk to your healthcareprovider about your options or if you have any questions. It is your choice to take PAXLOVID. What is COVID-19? COVID-19 is caused by a virus called a coronavirus. You can get COVID-19 through close contact withanother person who has the virus. COVID-19 illnesses have ranged from very mizn-is-zbujgc, including illness resulting in . While information so far suggests that most COVID-19 illness is mild, serious illness can happen and maycause some of your other medical conditions to become worse. Older people and people of all ages with severe, long lasting (chronic) medical conditions like heart disease, lung disease, and diabetes,for example seem to be at higher risk of being hospitalized for COVID-19. What is PAXLOVID? PAXLOVID is an investigational medicine used to treat bduv-jj-kbgajlcw COVID-19 in adults and children [12 years of age and older weighing at least 88 pounds (40 kg)] with positive results of direct SARS-CoV-2 viral testing, and who are at high risk for progression to severe COVID-19, including hospitalization or . PAXLOVID is investigational because it is still being studied. There is limited information about the safety and effectiveness of using PAXLOVID to treat people with zoec-pd-xzqpjyqy COVID-19. The FDA has authorized the emergency use of PAXLOVID for the treatment of qsrp-sp-noptzdsi COVID-19in adults and children [12 years of age and older weighing at least 88 pounds (40 kg)] with a positive test for the virus that causes COVID-19, and who are at high risk for progression to severe COVID-19, including hospitalization or , under an EUA. 1 Revised: 29 November 2021 What should I tell my healthcare provider before I take PAXLOVID? Tell your healthcare provider if you: Have any allergies Have liver or kidney disease Are or plan to become Are a child Have any serious illnesses Tell your healthcare provider about all the medicines you take, including prescription and elwk-lcj-jyywore medicines, vitamins, and herbal supplements. Some medicines may interact with PAXLOVID and may cause serious side effects. Keep a list of your medicines to show your healthcare provider and pharmacist when you get a new medicine. You can ask your healthcare provider or pharmacist for a list of medicines that interact with PAXLOVID. Do not start taking a new medicine without telling your healthcare provider. Your healthcare provider can tell you if it is safe to take PAXLOVID with other medicines. Tell your healthcare provider if you are taking combined hormonal contraceptive. PAXLOVID may affect how your control pills work. Females who are able to become should use another effective alternative form of contraception or an additional barrier method of contraception. Talk to your healthcare provider if you have any questions about contraceptive methods thatmight be right for you. How do I take PAXLOVID? PAXLOVID consists of 2 medicines: nirmatrelvir and ritonavir. Take 2 pink tablets of nirmatrelvir with 1 white tablet of ritonavir by mouth 2 times each day (in the morning and in the evening) for 5 days. For each dose, take all 3 tablets at the same time. If you have kidney disease, talk to your healthcare provider. You may need a different dose. Swallow the tablets whole. Do not chew, break, or crush the tablets. Take PAXLOVID with or without food. Do not stop taking PAXLOVID without talking to your healthcare provider, even if you feel better. If you miss a dose of PAXLOVID within 8 hours of the time it is usually taken, take it as soon as you remember. If you miss a dose by more than 8 hours, skip the missed dose and take the next dose atyour regular time. Do not take 2 doses of PAXLOVID at the same time. If you take too much PAXLOVID, call your healthcare provider or go to the nearest hospital emergency room right away. If you are taking a ritonavir-or cobicistat-containing medicine to treat hepatitis C or Human Immunodeficiency Virus (HIV), you should continue to take your medicine as prescribed by your healthcare provider. Talk to your healthcare provider if you do not feel better or if you feel worse after 5 days. Who should generally not take PAXLOVID? Do not take PAXLOVID if: You are allergic to nirmatrelvir, ritonavir, or any of the ingredients in PAXLOVID You are taking any of the following medicines: Alfuzosin Pethidine, propoxyphene Ranolazine Amiodarone, dronedarone, flecainide, propafenone, quinidine Colchicine Lurasidone, pimozide, clozapine Dihydroergotamine, ergotamine, methylergonovine Lovastatin, simvastatin Sildenafil (Revatio ) for pulmonary arterial hypertension (PAH) Triazolam, oral midazolam Apalutamide Carbamazepine, phenobarbital, phenytoin Rifampin Delmar s Wort (hypericum perforatum) Taking PAXLOVID with these medicines may cause serious or life-threatening side effects or affect how PAXLOVID works. These are not the only medicines that may cause serious side effects if taken with PAXLOVID. PAXLOVID may increase or decrease the levels of multiple other medicines. It is very important to tell your healthcare provider about all of the medicines you are taking because additional laboratory tests or changes in the dose of your other medicines may be necessary while you are taking PAXLOVID. Your healthcare provider may also tell you about specific symptoms to watch out for that may indicate that you need to stop or decrease the dose of some of your other medicines. What are the important possible side effects of PAXLOVID? Possible side effects of PAXLOVID are: Allergic Reactions. Allergic reactions can happen in people taking PAXLOVID, even after only 1 dose. Stop taking PAXLOVID and call your healthcare provider right away if you get any of the following symptoms of an allergic reaction: hives trouble swallowing or breathing swelling of the mouth, lips, or face throat tightness hoarseness skin rash Liver Problems. Tell your healthcare provider right away if you have any of these signs and symptoms of liver problems: loss of appetite, yellowing of your skin and the whites of eyes (jaundice), dark-colored urine, pale colored stools and itchy skin, stomach area (abdominal) pain. Resistance to HIV Medicines. If you have untreated HIV infection, PAXLOVID may lead to some HIV medicines not working as well in the future. Other possible side effects include: altered sense of taste diarrhea high blood pressure muscle aches These are not all the possible side effects of PAXLOVID. Not many people have taken PAXLOVID. Serious and unexpected side effects may happen. PAXLOVID is still being studied, so it is possible that all of the risks are not known at this time. What other treatment choices are there? Veklury (remdesivir) is FDA-approved for the treatment of fgsm-xs-qdblkqfm COVID-19 in certain adults and children. Talk with your doctor to see if Veklury is appropriate for you. Like PAXLOVID, FDA may also allow for the emergency use of other medicines to treat people with COVID-19. Go to https://www.fda.gov/snfchpeqe-kznvjqxqozhg-hvykypjswhl/iij-fyqxf-uxznikouwh-and- policy-framework/xwvzwjuqc-xph-bbhkmyoxwmlhs for information on the emergency use of other medicines that are authorized by FDA to treat people with COVID-19. Your healthcare provider may talk with you aboutclinical trials for which you may be eligible. It is your choice to be treated or not to be treated with PAXLOVID. Should you decide not to receive it or for your child not to receive it, it will not change your standard medical care. What if I am or ? There is energy economist treating women or mothers with PAXLOVID. For a motherand unborn baby, the benefit of taking PAXLOVID may be greater than the risk from the treatment. Ifyou are , discuss your options and specific situation with your healthcare provider. It is recommended that you use effective barrier contraception or do not have sexual activity whiletaking PAXLOVID. If you are , discuss your options and specific situation with your healthcare provider. How do I report side effects with PAXLOVID? Contact your healthcare provider if you have any side effects that bother you or do not go away. Report side effects to FDA [employer] at www.fda.gov/medwatch or call 1-640-EHD2682 or you can reportside effects to [employer]. at the contact information provided below. Website Fax number Telephone number [facility] How should I store PAXLOVID? Store PAXLOVID tablets at room temperature, between 68?F to 77?F (20?C to 25?C). How can I learn more about COVID-19? Ask your healthcare provider. Visit https://www.cdc.gov/COVID19. Contact your local or state public health department. What is an Emergency Use Authorization (EUA)? The [place] FDA has made PAXLOVID available under an emergency access mechanism called an Emergency Use Authorization (EUA). The EUA is supported by a [place] of Health and Human Service (HHS) declaration that circumstances exist to justify the emergency use of drugs and biological productsduring the COVID-19 pandemic. PAXLOVID for the treatment of eszh-an-pafsfyda COVID-19 in adults and children [12 years of age andolder weighing at least 88 pounds (40 kg)] with positive results of direct SARS-CoV-2 viral testing, and who are at high risk for progression to severe COVID-19, including hospitalization or , has not undergone the same type of review as an FDA-approved product. In issuing an EUA under the COVID-19 public health emergency, the FDA has determined, among other things, that based on the total amount of scientific evidence available including data from adequate and well-controlled clinical trials, if available, it is reasonable to believe that the product may be effective for diagnosing, treating, or preventing COVID-19, or a serious or life-threatening disease or condition caused by COVID-19; that the known and potential benefits of the product, when used to diagnose, treat, or prevent such disease or condition, outweigh the known and potential risks of such product; and that there are no adequate, approved, and available alternatives. All of these criteria must be met to allow for the product to be used in the treatment of patients during the COVID-19 pandemic. The EUA for PAXLOVID is in effect for the duration of the COVID-19 declaration justifying emergency use of this product, unless terminated or revoked (after which the products may no longer be used under the EUA). Additional Information For general questions, visit the website or call the telephone number provided below. Website Telephone number [employer] (5-978-D85-EZSP) You can also go to [email or web address] or call for more information. Pfizer Distributed by [employer] [place] [employer] [place] [address] [id number] Revised: 29 November 2021 documented in this encounterKn[facility]08-29-2022 Instructions* Patient Instructions* Marcelino Bess APRN.CNP - 05/12/2022 6:05 PM EDT COUGH: Your doctor wants you to have this information about coughing. The body has a cough reflex which helps expel mucous secretions and irritants from the lung and airway passages. Cough spasms are periods of continuous coughing lasting several minutes. Most coughs is caused by virus infections which may last for up to 2-3 weeks. Coughing helps to protect the lung from pneumonia. A persistent cough las ting longer than 4-6 weeks requires medical evaluation by your primary care doctor. Treatment of cough includes measures to loosen the cough and thin the mucous. Warm liquids, cough drops, and nonprescription cough medicine may help reduce dry hacking cough. Use a humidifier if necessary as dry air can make coughs worse. Ultrasonic humidifiers are especially useful as they kill molds and many bacteria. Some cough medicines have antihistamines, decongestants, or alcohol in them; there is no proof that any of these help control cough. Prescription cough medicine or those with dextromethorphan (DM) should be reserved for dry coughs that prevent sleep or cause spasms or chest pain. Avoid any exposure to cigarette smoke as this will worsen the cough or make it last much longer. Call your doctor right away if you or your child have increased breathing difficulty, a high fever, a cough that lasts longer than 3 weeks, or other serious complaints. documented in this encounterKn[facility]08-29-2022 History of Present illness Narrative* Madeline Luo RT(R) - 05/12/2022 5:30 PM EDT Radiology Service Progress Note PATIENT NAME: Sally Vargas DATE OF SERVICE: May 12, 2022 TIME: 5:32 PM PATIENT IDENTITY VERIFICATION COMPLETED USING TWO (2) IDENTIFIERS: Name and Date of confirmedby patient verbally. FALL SCREENING: Has the patient had 2 falls in the last year or 1 fall with injury or currently using an Ambulatory Assistive Device (Walker, Cane, Wheelchair, Crutches, etc.)? No PATIENT GENDER DATA: Female. status: : No status: NO. PATIENT RELEVANT IMPLANT DATA REVIEWED: Not Applicable RADIOLOGY DEPARTMENT: General X-ray: Exam(s) Completed: Chest X-Ray PERIPHERAL IV DATA: Not applicable SIGNED BY: RT Abel(R) May 12, 2022 5:32 PM documented in this encounterKnox [facility]08-29-2022 History of Present illness Narrative* Marcelino ASHLYN Bess.CLASSROOM TEACHER - 05/12/2022 5:20 PM EDT Subjective HPI Nontoxic-appearing female presents urgent care chief complaint cough fatigue headache sore throat. Duration of symptoms 3 days. Associated symptoms as above. Patient states cough worsened over the last few days. Denies any OTC medication use. Denies any known sick contacts. Was recently hospitalized for vertigo. Does have follow-up with PCP May 16. No OTC medication use today. Denies any significant pain. Denies any fevers productive cough chest pain shortness of breath hemoptysis history of DVT PE nausea vomiting abdominal pain change in bowel or bladder habits. Past medical history prescription medication use allergies reviewed. .Patient presents with: Cough: ST, [place] x3 days PAST MEDICAL HISTORY Diagnosis Date Allergic rhinitis, cause unspecified 05/17/2008 Spring and summer Benign liver cyst 05/24/2010 CT scan at [facility] 11/2009 and 04/2010 showe 4 mm increase in size. No pain. No elevated LFTs on 03/11/2010. Calculus of kidney 05/17/[address] Nicolas: Hospitalized age 20, and again later -- no procedures so far ([facility], [address] [facility]) Cancer (HCC) COVID-19 virus infection 10/07/202109/2021 Diverticulosis Dysmenorrhea Hemorrhoids History of blood transfusion Impaired fasting glucose 05/17/2008 Sugar 104 fasting, 04/21 Marijuana use 07/10/2020 ER visit 07/06/2020, [place] [facility] 05/17/2008 Has used imitrex with good response; Keeps Vicodin on hand when needed; Ovarian cyst 07/15/2012 Pancreatitis Smoker 05/17/2008 Started age 26, 1/2 a PPD 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, mild esophagitis, 2 cm hiatal hernia LIG/TRNSXJ FLP TUBE ABDL/VAG APPR UNI/BI OOPHORECTOMY PARTIAL/TOTAL UNI/BI 2009 Oophorectomy right, still has left OOPHORECTOMY PARTIAL/TOTAL UNI/BI 01/2015 left removed PAST SURGICAL HISTORY OF uterine ablation PAST SURGICAL HISTORY OF cyst removal TOTAL ABDOMINAL HYSTERECT W/WO RMVL TUBE OVARY 08/31/06 Hysterectomy, MICHELINE ALLERGIES Penicillins, Cephalexin, Chlorhexidine, Toradol [Ketorolac], Tramadol, Asa [Salicylates],Contrast Dye [Iodine], Ibuprofen, and Prednisone MEDICATIONS pantoprazole DR (PROTONIX) 40 mg tablet Take 1 tablet by mouth twice daily. Take on empty stomach, 1/2 hr before meal. diphenhydrAMINE (BENADRYL) 25 mg capsule Take 50 mg by mouth at bedtime as needed. Estradiol (ESTRACE) 0.5 mg tablet Take 1 tablet by mouth once daily. PARoxetine (PAXIL) 10 mg tablet Take 1 tablet by mouth once daily. traZODone (DESYREL) 100 mg tablet Take 100 mg by mouth daily at bedtime. meclizine (ANTIVERT) 25 mg tab Take 1 tablet by mouth three times daily. sucralfate (CARAFATE) 1 gram tablet Take 1 g by mouth four times daily. OLANZapine (ZYPREXA) 5 mg tablet TAKE 1 TABLET BY MOUTH EVERYDAY AT BEDTIME prazosin (MINIPRESS) 1 mg cap Take 1 mg by mouth daily at bedtime. gabapentin (NEURONTIN) 800 mg tablet Take 1 tablet by mouth three times daily for 90 days. promethazine (PHENERGAN) 25 mg tablet Take 1 tablet by mouth every 8 hours as needed (for nausea). (Patient not taking: Reported on 05/12/2022) buPROPion (WELLBUTRIN) 75 mg tablet Take 75 mg by mouth once daily. tiZANidine (ZANAFLEX) 4 mg tablet Take 4 mg by mouth once daily. (Patient not taking: Reported on 05/12/2022) Benzonatate 200 mg capsule Take 1 capsule by mouth three times daily as needed. (Patient not taking: Reported on 05/12/2022) lubiprostone (AMITIZA) 8 mcg capsule Take 1 capsule by mouth twice daily with meals. OXcarbazepine (TRILEPTAL) 300 mg tablet diclofenac (VOLTAREN) 1 % topical gel Apply 2 g to affected area four times daily. busPIRone (BUSPAR) 10 mg tablet Take 10 mg by mouth twice daily. cyanocobalamin (VITAMIN B-12) 1,000 mcg tab Take 1 tablet by mouth once daily. omeprazole (PRILOSEC) 40 mg capsule Take 1 capsule by mouth twice daily. FAMILY HISTORY Problem Relation Age of Onset Thyroid Mother unsure of details Arthritis Mother fibromyalgia Blood Disease Mother blood clots, unsure of details (aorta?) No Known Problems Father No Known Problems Sister No Known Problems Sister No Known Problems Brother Diabetes Maternal Grandmother Diabetes Maternal Grandfather Lipids Maternal Grandfather Stroke Maternal Grandfather Coronary Artery Disease Maternal Grandfather Cataract Maternal Grandfather Pancreatic Cancer Maternal Grandfather Diabetes Paternal Grandmother Diabetes Paternal Grandfather Coronary Artery Disease Paternal Grandfather No Known Problems Son No Known Problems Son Breast Cancer Maternal Aunt Lipids Maternal Uncle Coronary Artery Disease Maternal Uncle other (ovarian ca) Other maternal cousin Colon Cancer No Family History Social History Tobacco Use Smoking status: Former Packs/day: 0.50 Years: 3.00 Pack years: 1.50 Types: Cigarettes Quit date: 01/12/2017 Years since quittin.3 Smokeless tobacco: Never Tobacco comments: Approx. 3 cigarettes daily-1 pack every week Vaping Use Vaping Use: Never used Substance Use Topics Alcohol use: Yes Comment: Occasional Drug use: Never BP 128/88 Pulse 86 Temp 37.2 C (98.9 F) Resp 18 Wt 95 kg (209 lb 6.4 oz) LMP 08/10/2006 SpO2 98% BMI 39.03 kg/m Review of Systems Constitutional: Negative for chills, fever and malaise/fatigue. HENT: Positive for sore throat. Negative for congestion, ear discharge, ear pain and sinus pain. Eyes: Negative for blurred vision, pain, discharge and redness. Respiratory: Positive for cough. Negative for hemoptysis, sputum production, shortness of breath, wheezing and stridor. Cardiovascular: Negative for chest pain. Gastrointestinal: Negative for abdominal pain, diarrhea, nausea and vomiting. Musculoskeletal: Negative for myalgias. Skin: Negative for itching and rash. Neurological: Positive for headaches. Negative for dizziness. Objective Physical Exam Constitutional: General: She is not in acute distress. Appearance: She is not diaphoretic. HENT: Head: Normocephalic. Mouth/Throat: Mouth: Mucous membranes are moist. Pharynx: Oropharynx is clear. No oropharyngeal exudate or posterior oropharyngeal erythema. Eyes: Conjunctiva/sclera: Conjunctivae normal. Pupils: Pupils are equal, round, and reactive to light. Cardiovascular: Rate and Rhythm: Normal rate and regular rhythm. Heart sounds: Normal heart sounds. Pulmonary: Effort: Pulmonary effort is normal. No tachypnea, accessory muscle usage or respiratory distress. Breath sounds: Normal breath sounds. No stridor. No wheezing, rhonchi or rales. Abdominal: Palpations: Abdomen is soft. Tenderness: There is no abdominal tenderness. Musculoskeletal: Cervical back: Normal range of motion and neck supple. No rigidity or tenderness. Lymphadenopathy: Cervical: No cervical adenopathy. Skin: General: Skin is warm and dry. Neurological: Mental Status: She is alert and oriented to person, place, and time. ASSESSMENT/PLAN: 1. Acute cough - ICD9: 786.2, ICD10: R05.1 - XR CHEST 2V FRONTAL/LAT IMPRESSION: No acute radiographic abnormality. No acute findings noted on chest x-ray. We will treat conservatively at this time. Well score 0. Cough suppressant sent to pharmacy. Patient was educated on supportive therapies. Patient will follow up with primary care provider as needed. Patient was instructed to immediately proceed to emergency room for any new, worsening, or symptoms lasting longer than anticipated. The patient's clinical presentation is otherwise unremarkable at this time. Based on exam and clinical finding, the patient isstable for discharge. Plan of care was discussed with patient. Patient verbalizes understanding andagrees to plan of care. This note was generated using sevenload software. It may contain errors in wording, punctuation, or spelling. Marcelino Bess APRN.MANUELITO documented in this encounterKnox [facility] Hospital08-24-2022 History of Present illness Narrative* Isabel Arias PA-C - 05/07/2022 1:21 PM EDT Noted. * Jigar Bernardo LPN - 05/06/2022 2:37 PM EDT TRANSITION CARE MANAGEMENT (TCM) INITIAL CONTACT Provider Action/FYI: Pt has appointment 05/16/22 Initial contact with patient post discharge, spoke to patient. Patient identified by name and . TRANSITION CARE MANAGEMENT: Date of Outreach: 05/06/2022 Outreach Attempt 1: Contact Made Date of Discharge 05/02/2022 Some recent data might be hidden SUMMARY: -Pt discharged from [facility] on 05/02/22. -Follow up appointment on 05/16/22. -Medication review done No. -Admitted for: syncope CONCERNS: none NEW MEDICATIONS: Antivert 25 mg every 8 hours as needed MEDS HELD/DISCONTINUED: none BRIEF HOSPITAL COURSE: documented in this encounterKnox [facility]08-23-2022 Miscellaneous Notes* Telephone Encounter - Jigar Bernardo LPN - 05/06/2022 2:43 PM EDT Spoke with pt. She was discharged 05/02/22. Pt needed to reschedule appointment d/t transportation. TCM done and appointment rescheduled. Jigar Bernardo LPN * Telephone Encounter - Jigar Bernardo LPN - 05/05/2022 10:07 AM EDT Pt is scheduled to see Isabel for a hosp f/u from [facility]. Call to pt to see what day she was discharged. If still within 2 days please do a TCM encounter on pt. Jigar Bernardo LPN [facility] Hospital Discharge instructions Patient Education 02/06/2022 22:07:16 Flank Pain, Uncertain Cause Flank Pain, Uncertain Cause The flank is the area between your upper abdomen and your back. Pain there is often caused by a problem with your kidneys. It might be a kidney infection or a kidney stone. Other causes of flank paininclude spinal arthritis, a pinched nerve from a back injury, or a back muscle strain or spasm. The cause of your flank pain is not certain. You may need other tests. Home care Follow these tips when caring for yourself at home: You may use acetaminophen or ibuprofen to control pain, unless your health care provider prescribedanother medicine. If you have chronic liver or kidney disease, talk with your provider before taking these medicines. Also talk with your provider first if you ve ever had a stomach ulcer or GI bleeding. If the pain is coming from your muscles, you may get relief with ice or heat. During the first 2 days after the injury, put an ice pack on the painful area for 20 minutes every 2 to 4 hours. This will reduce swelling and pain. A hot shower, hot bath, or heating pad works well for a muscle spasm. You can start with ice, then switch to heat after 2 days. You might find that alternating ice and heatworks well. Use the method that feels the best to you. Follow-up care Follow up with your healthcare provider if your symptoms don t get better over the next few days. When to seek medical advice Call your healthcare provider right away if any of these happen: Repeated vomiting Fever of 100.4 F (38 C) or higher, or as directed by your health care provider Flank pain that gets worse Pain that spreads to the front of your belly (abdomen) Dizziness, weakness, or fainting Blood in your urine Burning feeling when you urinate or the need to urinate often Pain in one of your legs that gets worse Numbness or weakness in a leg [id number] [employer] [address] [place] [address]. All rights reserved. This information is not intended as a substitute for professional medical care. Always follow yourhealthcare professional's instructions. Follow Up Care 02/06/2022 18:30:50 With:MARCELINO ALBERT MD Address: [address] [place] [id number]- When:2-4 days [facility] 05-26-2022 Evaluation + Plan note Diagnostic Tests Pending * Urine Culture 5/26/22 [facility] 05-16-2022 Miscellaneous Notes* Telephone Encounter - Taylor Figueroa APRN.CNP - 01/27/2022 3:55 PM EDT PDMP website checked and validated. All prescriptions have been APPROPRIATELY filled. No suspiciousactivity was identified. January 27, 2022 Taylor Figueroa APRN.CNP documented [facility] History of Present illness Narrative* Isabel Arias PA-C - 12/24/2021 11:02 AM EDT DISTANCE HEALTH VISIT MyChart video visit was used for evaluation of this patient. Patient consents to visit. Patient location: Abraham Vargas is a 41 year old female seen for abdominal pain. Patient has been having upper abdominal pain for the past 2 weeks. Tried to get an appointment with her gastro specialist but not able to until February. She is taking carafate and omeprazole. Reports she just is using OTC omeprazole just once a day. Pain is all over. HISTORY REVIEWED (electronic chart updated): - medical history - medications - allergies REVIEW OF SYSTEMS: As noted in HPI PHYSICAL EXAMINATION: LMP 08/10/2006 Any vital signs collected today were done so using patient's home equipment, otherwise no vital signs due to distant health visit. VIDEO EXAM: (if done, performed via video enabled technology) GENERAL: alert and appropriate, in no distress, well-hydrated, well nourished and happy, smiling, interactive ASSESSMENT: (R10.84) Generalized abdominal pain (primary encounter diagnosis) PLAN: ASSESSMENT/PLAN: 1. Generalized abdominal pain - ICD9: 789.07, ICD10: R10.84 - Advised patient that we should really do an in person visit to work up the abdominal pain. In meantime, will have her try protonix BID and continue carafate. Set up appt with gastro Patient aware of plan. Isabel Arias PA-C documented in [facility] History of Past illness Narrative* Problem Noted Date Diagnosed Date Resolved Date COVID-19 virus infection 10/07/2021 Overview: 09/2021 Marijuana use 07/10/2020 03/30/2023 Overview: ER visit 07/06/2020Jordan Post-op pain 06/19/2020 02/16/2023 Encounter for screening for cardiovascular disorders 03/31/2016 02/16/2023 Routine gynecological examination 05/17/2008 02/16/2023 Overview: Dr. Benitez, [facility] documented as of this encounter (statuses as of 03/30/2023) [facility] of Past illness Narrative* Problem Noted Date Diagnosed Date Resolved Date COVID-19 virus infection 10/07/2021 Overview: 09/2021 Marijuana use 07/10/2020 03/30/2023 Overview: ER visit 07/06/2020Jordan Post-op pain 06/19/2020 02/16/2023 Encounter for screening for cardiovascular disorders 03/31/2016 02/16/2023 Routine gynecological examination 05/17/2008 02/16/2023 Overview: Dr. Benitez, [facility] documented as of this encounter (statuses as of 04/01/2023) [facility] of Past illness Narrative* Problem Noted Date Diagnosed Date Resolved Date COVID-19 virus infection 10/07/2021 Overview: 09/2021 Marijuana use 07/10/2020 03/30/2023 Overview: ER visit 07/06/2020Jordan Post-op pain 06/19/2020 02/16/2023 Encounter for screening for cardiovascular disorders 03/31/2016 02/16/2023 Routine gynecological examination 05/17/2008 02/16/2023 Overview: Dr. Benitez, [facility] documented as of this encounter (statuses as of 04/16/2023) [facility] of Past illness Narrative* Problem Noted Date Diagnosed Date Resolved Date COVID-19 virus infection 10/07/2021 Overview: 09/2021 Marijuana use 07/10/2020 03/30/2023 Overview: ER visit 07/06/2020, [place] Post-op pain 06/19/2020 02/16/2023 Encounter for screening for cardiovascular disorders 03/31/2016 02/16/2023 Routine gynecological examination 05/17/2008 02/16/2023 Overview: Dr. Benitez, [facility] documented as of this encounter (statuses as of 04/22/2023) [facility] of Past illness Narrative* Problem Noted Date Diagnosed Date Resolved Date COVID-19 virus infection 10/07/2021 Overview: 09/2021 Marijuana use 07/10/2020 03/30/2023 Overview: ER visit 07/06/2020, [place] Post-op pain 06/19/2020 02/16/2023 Encounter for screening for cardiovascular disorders 03/31/2016 02/16/2023 Routine gynecological examination 05/17/2008 02/16/2023 Overview: Dr. Benitez, [facility] documented as of this encounter (statuses as of 05/15/2023) [facility] of Past illness Narrative* Problem Noted Date Diagnosed Date Resolved Date COVID-19 virus infection 10/07/2021 Overview: 09/2021 Marijuana use 07/10/2020 03/30/2023 Overview: ER visit 07/06/2020Jordan Post-op pain 06/19/2020 02/16/2023 Encounter for screening for cardiovascular disorders 03/31/2016 02/16/2023 Routine gynecological examination 05/17/2008 02/16/2023 Overview: Dr. Benitez, [facility] documented as of this encounter (statuses as of 05/19/2023) [facility] illness Narrative* Problem Noted Date Diagnosed Date Resolved Date COVID-19 virus infection 10/07/2021 Overview: 09/2021 Marijuana use 07/10/2020 03/30/2023 Overview: ER visit 07/06/2020, [place] Post-op pain 06/19/2020 02/16/2023 Encounter for screening for cardiovascular disorders 03/31/2016 02/16/2023 Routine gynecological examination 05/17/2008 02/16/2023 Overview: Dr. Benitez, [facility] documented as of this encounter (statuses as of 05/21/2023) [facility] illness Narrative* Problem Noted Date Diagnosed Date Resolved Date COVID-19 virus infection 10/07/2021 Overview: 09/2021 Marijuana use 07/10/2020 03/30/2023 Overview: ER visit 07/06/2020Jordan Post-op pain 06/19/2020 02/16/2023 Encounter for screening for cardiovascular disorders 03/31/2016 02/16/2023 Routine gynecological examination 05/17/2008 02/16/2023 Overview: Dr. Benitez, [facility] documented as of this encounter (statuses as of 05/21/2023) [facility] Narrative* Problem Noted Date Diagnosed Date Resolved Date COVID-19 virus infection 10/07/2021 Overview: 09/2021 Marijuana use 07/10/2020 03/30/2023 Overview: ER visit 07/06/2020Jordan Post-op pain 06/19/2020 02/16/2023 Encounter for screening for cardiovascular disorders 03/31/2016 02/16/2023 Routine gynecological examination 05/17/2008 02/16/2023 Overview: Dr. Benitez, [facility] documented as of this encounter (statuses as of 08/13/2023) [facility] Narrative* Problem Noted Date Diagnosed Date Resolved Date COVID-19 virus infection 10/07/2021 Overview: 09/2021 Marijuana use 07/10/2020 03/30/2023 Overview: ER visit 07/06/2020Jordan Post-op pain 06/19/2020 02/16/2023 Encounter for screening for cardiovascular disorders 03/31/2016 02/16/2023 Routine gynecological examination 05/17/2008 02/16/2023 Overview: Dr. Benitez, [facility] documented as of this encounter (statuses as of 08/19/2023) [facility] Narrative* Problem Noted Date Diagnosed Date Resolved Date COVID-19 virus infection 10/07/2021 Overview: 09/2021 Marijuana use 07/10/2020 03/30/2023 Overview: ER visit 07/06/2020Jordan Post-op pain 06/19/2020 02/16/2023 Encounter for screening for cardiovascular disorders 03/31/2016 02/16/2023 Routine gynecological examination 05/17/2008 02/16/2023 Overview: Dr. Benitez, [facility] documented as of this encounter (statuses as of 08/19/2023) [facility] Narrative* Problem Noted Date Diagnosed Date Resolved Date COVID-19 virus infection 10/07/2021 Overview: 09/2021 Marijuana use 07/10/2020 03/30/2023 Overview: ER visit 07/06/2020Jordan Post-op pain 06/19/2020 02/16/2023 Encounter for screening for cardiovascular disorders 03/31/2016 02/16/2023 Routine gynecological examination 05/17/2008 02/16/2023 Overview: Dr. Benitez, [facility] documented as of this encounter (statuses as of 10/23/2023) [facility] Narrative* Problem Noted Date Diagnosed Date Resolved Date COVID-19 virus infection 10/07/2021 Overview: 09/2021 Marijuana use 07/10/2020 03/30/2023 Overview: ER visit 07/06/2020Jordan Post-op pain 06/19/2020 02/16/2023 Encounter for screening for cardiovascular disorders 03/31/2016 02/16/2023 Routine gynecological examination 05/17/2008 02/16/2023 Overview: Dr. Benitez, [facility] documented as of this encounter (statuses as of 10/25/2023) [facility] Narrative* Problem Noted Date Diagnosed Date Resolved Date COVID-19 virus infection 10/07/2021 Overview: 09/2021 Marijuana use 07/10/2020 03/30/2023 Overview: ER visit 07/06/2020Jordan Post-op pain 06/19/2020 02/16/2023 Encounter for screening for cardiovascular disorders 03/31/2016 02/16/2023 Routine gynecological examination 05/17/2008 02/16/2023 Overview: Dr. Benitez, [facility] Smoker 05/17/2008 12/01/2023 Overview: Started age 26, 1/2 a PPD Impaired fasting glucose 05/17/2008 Overview: Sugar 104 fasting, 8/08 documented as of this encounter (statuses as of 12/03/2023) [facility] Narrative* Problem Noted Date Diagnosed Date Resolved Date COVID-19 virus infection 10/07/2021 Overview: 09/2021 Marijuana use 07/10/2020 03/30/2023 Overview: ER visit 07/06/2020, [place] Post-op pain 06/19/2020 02/16/2023 Encounter for screening for cardiovascular disorders 03/31/2016 02/16/2023 Routine gynecological examination 05/17/2008 02/16/2023 Overview: Dr. Benitez, [facility] Smoker 05/17/2008 12/01/2023 Overview: Started age 26, 1/2 a PPD Impaired fasting glucose 05/17/2008 Overview: Sugar 104 fasting, 8/08 documented as of this encounter (statuses as of 12/15/2023) [facility] Narrative* Problem Noted Date Diagnosed Date Resolved Date COVID-19 virus infection 10/07/2021 Overview: 09/2021 Marijuana use 07/10/2020 03/30/2023 Overview: ER visit 07/06/2020Jordan Post-op pain 06/19/2020 02/16/2023 Encounter for screening for cardiovascular disorders 03/31/2016 02/16/2023 Routine gynecological examination 05/17/2008 02/16/2023 Overview: Dr. Benitez, [facility] Smoker 05/17/2008 12/01/2023 Overview: Started age 26, 1/2 a PPD Impaired fasting glucose 05/17/2008 Overview: Sugar 104 fasting, 8/08 documented as of this encounter (statuses as of 12/15/2023) [facility] Narrative* Problem Noted Date Diagnosed Date Resolved Date COVID-19 virus infection 10/07/2021 Overview: 09/2021 Marijuana use 07/10/2020 03/30/2023 Overview: ER visit 07/06/2020Jordan Post-op pain 06/19/2020 02/16/2023 Encounter for screening for cardiovascular disorders 03/31/2016 02/16/2023 Routine gynecological examination 05/17/2008 02/16/2023 Overview: Dr. Benitez, [facility] Smoker 05/17/2008 12/01/2023 Overview: Started age 26, 1/2 a PPD Impaired fasting glucose 05/17/2008 Overview: Sugar 104 fasting, 8/08 documented as of this encounter (statuses as of 12/17/2023) [facility] Narrative* Problem Noted Date Diagnosed Date Resolved Date COVID-19 virus infection 10/07/2021 Overview: 09/2021 Marijuana use 07/10/2020 03/30/2023 Overview: ER visit 07/06/2020Jordan Post-op pain 06/19/2020 02/16/2023 Encounter for screening for cardiovascular disorders 03/31/2016 02/16/2023 Routine gynecological examination 05/17/2008 02/16/2023 Overview: Dr. Benitez, [facility] Smoker 05/17/2008 12/01/2023 Overview: Started age 26, 1/2 a PPD Impaired fasting glucose 05/17/2008 Overview: Sugar 104 fasting, 8/08 documented as of this encounter (statuses as of 12/28/2023) [facility] Narrative* Problem Noted Date Diagnosed Date Resolved Date COVID-19 virus infection 10/07/2021 Overview: 09/2021 Marijuana use 07/10/2020 03/30/2023 Overview: ER visit 07/06/2020, [place] Post-op pain 06/19/2020 02/16/2023 Encounter for screening for cardiovascular disorders 03/31/2016 02/16/2023 Routine gynecological examination 05/17/2008 02/16/2023 Overview: Dr. Benitez, [facility] Smoker 05/17/2008 12/01/2023 Overview: Started age 26, 1/2 a PPD Impaired fasting glucose 05/17/2008 Overview: Sugar 104 fasting, 8/08 documented as of this encounter (statuses as of 12/30/2023) [facility] Discharge instructions Patient Education 09/13/2021 14:47:01 Abdominal Pain Abdominal Pain Abdominal pain is pain in the stomach or belly area. Everyone has this pain from time to time. In many cases it goes away on its own. But abdominal pain can sometimes be due to a serious problem, such as appendicitis. So it s important to know when to get help. Causes of abdominal pain There are many possible causes of abdominal pain. Common causes in adults include: Constipation, diarrhea, or gas Stomach acid flowing back up into the esophagus (acid reflux or heartburn) Severe acid reflux, called GERD (gastroesophageal reflux disease) A sore in the lining of the stomach or small intestine (peptic ulcer) Inflammation of the gallbladder, liver, or pancreas Gallstones or kidney stones Appendicitis Intestinal blockage An internal organ pushing through a muscle or other tissue (hernia) Urinary tract infections In women, menstrual cramps, fibroids, ovarian cysts, pelvic inflammatory disease, or endometriosis Inflammation or infection of the intestines, including Crohn's disease and ulcerative colitis Irritable bowel syndrome Diagnosing the cause of abdominal pain Your healthcare provider will give you a physical exam help find the cause of your pain. If needed,you will have tests. Belly pain has many possible causes. So it can be hard to find the reason for your pain. Giving details about your pain can help. Tell your provider where and when you feel the pain, and what makes it better or worse. Also let your provider know if you have other symptoms such as: Fever Tiredness Upset stomach (nausea) Vomiting Changes in bathroom habits Blood in the stool or black, tarry stool Weight loss that you can't explain (involuntary weight loss?) Also report any family history of stomach or intestinal problems, or cancers. Tell your provider about all your alcohol use and drug use. Tell your provider about all medicines you use, including herbs, vitamins, and supplements. Treating abdominal pain Some causes of pain need emergency medical treatment right away. These include appendicitis or a bowel blockage. Other problems can be treated with rest, fluids, or medicines. Your healthcare provider can give you specific instructions for treatment or self-care based on what is causing your pain. If you have vomiting or diarrhea, sip water or other clear fluids. When you are ready to eat solid foods again, start with small amounts of jmzz-tw-xdbdzc, low- fat foods. These include apple sauce, toast, or crackers. When to get medical care Call 911 or go to the hospital right away if you: Can t pass stool and are vomiting Are vomiting blood or have bloody diarrhea or black, tarry diarrhea Have chest, neck, or shoulder pain Feel like you might pass out Have pain in your shoulder blades with nausea Have sudden, severe belly pain Have new, severe pain unlike any you have felt before Have a belly that is rigid, hard, and hurts to touch Call your healthcare provider if you have: Pain for more than 5 days Bloating for more than 2 days Diarrhea for more than 5 days A fever of 100.4 F (38 C) or higher, or as directed by your healthcare provider Pain that gets worse Weight loss for no reason Continued lack of appetite Blood in your stool How to prevent abdominal pain Here are some tips to help prevent abdominal pain: Eat smaller amounts of food at each meal. Don't eat greasy, fried, or other high-fat foods. Don't eat foods that give you gas. Exercise regularly. Drink plenty of fluids. To help prevent GERD symptoms: Quit smoking. Reduce alcohol and foods that increase stomach acid. Don't use aspirin or zmyz-vib-evxjnlu pain and fever medicines, if possible. This includes nonsteroidal anti-inflammatory drugs (NSAIDs). Lose excess weight. Finish eating at least 2 hours before you go to bed or lie down. Raise the head of your bed. [phone] [employer] [address] [place] [address]. All rights reserved. This information is not intended as a substitute for professional medical care. Always follow yourhealthcare professional's instructions. Follow Up Care 09/13/2021 13:08:49 With:MARCELINO ALBERT MD Address: [address] [place] [id number]- When:2-4 days [facility] 12-03-2021 Hospital Discharge instructions Patient Education 08/16/2021 16:26:12 Cellulitis Skin Infection Cellulitis Cellulitis is an infection of the deep layers of skin. A break in the skin, such as a cut or scratch, can let bacteria under the skin. If the bacteria get to deep layers of the skin, it can be serious. If not treated, cellulitis can get into the bloodstream and lymph nodes. The infection can then spread throughout the body. This causes serious illness. Cellulitis causes the affected skin to become red, swollen, warm, and sore. The reddened areas havea visible border. An open sore may leak fluid (pus). You may have a fever, chills, and pain. Cellulitis is treated with antibiotics taken for 7 to 10 days. An open sore may be cleaned and covered with cool wet gauze. Symptoms should get better 1 to 2 days after treatment is started. Make sure to take all the antibiotics for the full number of days until they are gone. Keep taking the medicine even if your symptoms go away. Home care Follow these tips: Limit the use of the part of your body with cellulitis. If the infection is on your leg, keep your leg raised while sitting. This will help to reduce swelling. Take all of the antibiotic medicine exactly as directed until it is gone. Do not miss any doses, especially during the first 7 days. Don t stop taking the medicine when your symptoms get better. Keep the affected area clean and dry. Wash your hands with soap and warm water before and after touching your skin. Anyone else who touches your skin should also wash his or her hands. Don't share towels. Follow-up care Follow up with your healthcare provider, or as advised. If your infection does not go away on the first antibiotic, your healthcare provider will prescribe a different one. When to seek medical advice Call your healthcare provider right away if any of these occur: Red areas that spread Swelling or pain that gets worse Fluid leaking from the skin (pus) Fever higher of 100.4 F (38.0 C) or higher after 2 days on antibiotics [phone] [employer] [address] [place] [address]. All rights reserved. This information is not intended as a substitute for professional medical care. Always follow yourhealthcare professional's instructions. Follow Up Care 08/16/2021 15:45:40 With:MARCELINO ALBERT MD Address: [address] [place] [id number]- When:3-5 days [facility] 11-15-2021 History of Present illness Narrative* Madeline Luo, RT(R) - 07/29/2021 9:20 AM EST Radiology Service Progress Note PATIENT NAME: Sally Vargas DATE OF SERVICE: July 29, 2021 TIME: 9:19 AM PATIENT IDENTITY VERIFICATION COMPLETED USING TWO (2) IDENTIFIERS: Name and Date of confirmedby patient verbally. FALL SCREENING: Has the patient had 2 falls in the last year or 1 fall with injury or currently using an Ambulatory Assistive Device (Walker, Cane, Wheelchair, Crutches, etc.)? No PATIENT GENDER DATA: Female. status: : No status: NO. PATIENT RELEVANT IMPLANT DATA REVIEWED: Not Applicable RADIOLOGY DEPARTMENT: General X-ray: Exam(s) Completed: Chest X-Ray PERIPHERAL IV DATA: Not applicable SIGNED BY: RT Abel(R) July 29, 2021 9:19 AM documented in this encounterKn[facility] NotePt called and needed to cancel her appt for her [employer] consultation today as she states that she just tested positive for covid. I offered her our next soonest available on 09/02 and she became upset that I was unable to get her in next week for an appt. She insists that when she previously called she was squeezed in for an emergency visit because her teeth are very bad and causing her a lot of pain. I let her know that most likely we had an opening due to a cancellation as we usually don't do emergency appts unless someone has come into the ED. Pt was scheduled for 09/02 and added to the wait list but would like a sooner appt if possible. Contact pt @[phone] History of Present illness Narrative* Madeline Luo (Rt), Tech - 11/19/2020 3:40 PM EST Radiology Service Progress Note PATIENT NAME: Sally Vargas DATE OF SERVICE: November 19, 2020 TIME: 3:56 PM PATIENT IDENTITY VERIFICATION COMPLETED USING TWO (2) IDENTIFIERS: Name and Date of confirmedby patient verbally. FALL SCREENING: Has the patient had 2 falls in the last year or 1 fall with injury or currently using an Ambulatory Assistive Device (Walker, Cane, Wheelchair, Crutches, etc.)? No PATIENT GENDER DATA: Female. status: : No status: NO. PATIENT RELEVANT IMPLANT DATA REVIEWED: Not Applicable RADIOLOGY DEPARTMENT: General X-ray: Exam(s) Completed: Lower Extremity X- Ray(s): Knee, AP / Lat / Tunne / Merchant Right and Wt. Bearing: PERIPHERAL IV DATA: Not applicable SIGNED BY: RT Abel November 19, 2020 3:56 PM documented in this [facility]Kn[facility]03[facility] History of Present illness Narrative* Madeline Luo (Rt), Tech - 11/19/2020 3:30 PM EST Radiology Service Progress Note PATIENT NAME: Sally Vargas DATE OF SERVICE: November 19, 2020 TIME: 3:55 PM PATIENT IDENTITY VERIFICATION COMPLETED USING TWO (2) IDENTIFIERS: Name and Date of confirmedby patient verbally. FALL SCREENING: Has the patient had 2 falls in the last year or 1 fall with injury or currently using an Ambulatory Assistive Device (Walker, Cane, Wheelchair, Crutches, etc.)? No PATIENT GENDER DATA: Female. status: : No status: NO. PATIENT RELEVANT IMPLANT DATA REVIEWED: Not Applicable RADIOLOGY DEPARTMENT: General X-ray: Exam(s) Completed: Lower Extremity X- Ray(s): Femur, Right: andskull 2v PERIPHERAL IV DATA: Not applicable SIGNED BY: RT Abel November 19, 2020 3:55 PM [facility] History of Past illness Narrative* Problem Noted Date Resolved Date Post-op pain 06/19/2020 02/16/2023 Encounter for screening for cardiovascular disor ders 03/31/2016 02/16/2023 Routine gynecological examination 05/17/2008 02/16/2023 Overview: [facility] documented as of this encounter (statuses as of 02/16/2023) [facility] History of Past illness Narrative* Problem Noted Date Resolved Date Post-op pain 06/19/2020 02/16/2023 Encounter for screening for cardiovascular disor ders 03/31/2016 02/16/2023 Routine gynecological examination 05/17/2008 02/16/2023 Overview: Dr. Benitez, [facility] documented as of this encounter (statuses as of 02/17/2023) [facility] History of Past illness Narrative* Problem Noted Date Resolved Date Post-op pain 06/19/2020 02/16/2023 Encounter for screening for cardiovascular disor ders 03/31/2016 02/16/2023 Routine gynecological examination 05/17/2008 02/16/2023 Overview: Dr. Benitez, [facility] documented as of this encounter (statuses as of 02/17/2023) [facility] History of Past illness Narrative* Problem Noted Date Resolved Date Post-op pain 06/19/2020 02/16/2023 Encounter for screening for cardiovascular disor ders 03/31/2016 02/16/2023 Routine gynecological examination 05/17/2008 02/16/2023 Overview: Dr. Benitez, [facility] documented as of this encounter (statuses as of 03/10/2023) [facility] History of Past illness Narrative* Problem Noted Date Resolved Date Post-op pain 06/19/2020 02/16/2023 Encounter for screening for cardiovascular disor ders 03/31/2016 02/16/2023 Routine gynecological examination 05/17/2008 02/16/2023 Overview: Dr. Benitez, [facility] documented as of this encounter (statuses as of 03/12/2023) [facility] History of Past illness Narrative* Problem Noted Date Resolved Date Post-op pain 06/19/2020 02/16/2023 Encounter for screening for cardiovascular disor ders 03/31/2016 02/16/2023 Routine gynecological examination 05/17/2008 02/16/2023 Overview: Dr. Benitez, [facility] documented as of this encounter (statuses as of 03/13/2023) [facility] History of Past illness Narrative* Problem Noted Date Resolved Date Post-op pain 06/19/2020 02/16/2023 Encounter for screening for cardiovascular disor ders 03/31/2016 02/16/2023 Routine gynecological examination 05/17/2008 02/16/2023 Overview: Dr. Benitez, [facility] documented as of this encounter (statuses as of 03/19/2023) [facility] of Past illness Narrative* Problem Noted Date Diagnosed Date Resolved Date Post-op pain 06/19/2020 02/16/2023 Encounter for screening for cardiovascular disorders 03/31/2016 02/16/2023 Routine gynecological examination 05/17/2008 02/16/2023 Overview: Dr. Benitez, [facility] documented as of this encounter (statuses as of 03/27/2023) [facility] History of Present illness Narrative* Vanita Quinteros RN - 10/09/2019 11:18 AM EST Discharge instructions given to pt, she states I understand instructions. pt is awaiting her medical transport for ride home. IV removed cath intact. Prescription for oxycodone filled by meds to beds 10/08/2019 given to patient. * Penny Duenas - 10/09/2019 9:49 AM EST .Nutrition rescreen completed. Chart reviewed. Patient to be monitored and followed by the diet prototype technician.JIM Ratliff * Stacey Schaefer MD - 10/09/2019 6:31 AM EST SIGNAL SYSTEM TESTING MAINTAINER/ONC Progress Note Date: 10/09/2019 Time: 6:31 AM Sally Vargas 39 y.o. female POD #2 s/p Ex Lap, resection of intraabdominal mass No acute events reported overnight. Patient was evaluated at the bedside this morning. She had no acute complaints. Pain is well controlled. Had BM yesterday, passing flatus. Ambulating well. Tolerating PO intake. Vitals: Vitals: 10/08/19 0532 10/08/19 0955 10/08/19 1753 10/08/19 2114 BP: 114/67 (!) 91/50 113/68 104/76 Pulse: 91 87 78 78 Resp: 16 16 18 16 Temp: 97.8 F (36.6 C) 98.7 F (37.1 C) 98.9 F (37.2 C) 97.5 F (36.4 C) TempSrc: Temporal Temporal Temporal Temporal SpO2: 95% 94% 98% 95% Weight: Height: Intake/Output: Last Shift: @[id number]@ Current Shift: I/O this shift: In: 900 [P.O.:900] Out: - Physical Exam: Gen: NAD, alert and cooperative HEENT: Normocephalic, atraumatic, EOMI, MMM Resp: CTABL, no WRR Card: RRR, no murmur Abd: Soft, non-distended, non-tender. No rebound tenderness, guarding, or rigidity. Normoactive bowel sounds on auscultation Incisions: Midline vertical C/D/I Ext: No LE edema, no calf tenderness or swelling Medications: Current Facility-Administered Medications Medication Dose Route Frequency Provider Last Rate Last Dose diphenhydrAMINE (BENADRYL) tablet 25 mg 25 mg Oral Q6H PRN Stacey Schaefer MD 25 mg at 10/09/200438 simethicone (MYLICON) chewable tablet 80 mg 80 mg Oral Q6H PRN Shanna Rice MD 80 mg at 10/09/19 0200 docusate sodium (COLACE) capsule 100 mg 100 mg Oral BID PRN Shanna Rice MD 100 mg at 10/08/201840 ibuprofen (ADVIL;MOTRIN) tablet 600 mg 600 mg Oral Q6H Stacey Schaefer MD 600 mg at 10/09/19 0405 sodium chloride flush 0.9 % injection 10 mL 10 mL Intravenous 2 times per day Allie Lebron MD Stopped at 10/08/19 2347 sodium chloride flush 0.9 % injection 10 mL 10 mL Intravenous PRN Allie Lebron MD acetaminophen (TYLENOL) tablet 650 mg 650 mg Oral Q4H PRN Allie Lebron MD oxyCODONE (ROXICODONE) immediate release tablet 5 mg 5 mg Oral Q4H PRN Allie Lebron MD Or oxyCODONE (ROXICODONE) immediate release tablet 10 mg 10 mg Oral Q4H PRN Allie eLbron MD 10 mg at 10/09/19 0026 ondansetron (ZOFRAN) injection 4 mg 4 mg Intravenous Q8H PRN Allie Lebron MD 4 mg at 10/09/19 0505 melatonin tablet 1 mg 1 mg Oral Nightly PRN Allie Lebron MD 1 mg at 10/07/19 2104 Diagnostics: No results found. Labs: Admission on 10/07/2019 Component Date Value Ref Range Status ABO Grouping 10/07/2019 O NA Final Rh Type 10/07/2019 POS NA Final Test Performed by [address] [id number] Antibody Screen 10/07/2019 NEG NA Final Test Performed by [address] [address] WBC 10/08/2019 18.5* 3.6 - 10.7 10*3/uL Final RBC 10/08/2019 3.70* 3.80 - 5.20 10*6/uL Final Hemoglobin 10/08/2019 11.3* 11.7 - 16.0 g/dL Final Hematocrit 10/08/2019 33.3* 35.0 - 47.0 % Final MCV 10/08/2019 89.9 79.0 - 98.0 fL Final MCH 10/08/2019 30.4 26.0 - 34.0 pg Final MCHC 10/08/2019 33.9 32.0 - 36.0 % Final RDW 10/08/2019 13.6 11.5 - 14.5 % Final Platelets 10/08/2019 240 140 - 440 10*3/uL Final MPV 10/08/2019 9.5 7.4 - 10.4 fL Final Assessment/Plan: Sally Vargas 39 y.o. female 1. POD #2 s/p Ex Lap, resection of intraabdominal mass - Doing well, VSS - s/p dooley catheter - Encourage ambulation and use of incentive spirometer - Pain is well-controlled with oxy, motrin. Binder ordered. - Simethicone for gas pain - Diet: Gen - DVT ppx: SCDs while nonambulatory - Disposition: Meeting appropriate postop milestones, continue current care Further plan pending discussion with attending. Active Problems: S/P laparotomy Resolved Problems: * No resolved hospital problems. * Stacey Schaefer MD 10/09/2019, 6:31 AM Associated attestation - Delon Palacios MD - 10/09/2019 8:29 AM EST Patient rounded with the residents. Sleeping very soundly. No acute events overnight. Anticipate discharge today. * Stacey Schaefer MD - 10/08/2019 6:22 PM EST Patient evaluated at bedside. Doing well, no complaints. Ambulating without difficulty. Tolerating PO intake. Had a BM. Pain is well controlled at this time. Abdominal binder ordered for additional pain control. Will remove bandage in AM. Continue current postop care. * Shanna Rice MD - 10/08/2019 6:35 AM EST Gynecologic Oncology Progress Note Date: 10/08/2019 Time: 12:22 AM Sally Vargas 39 y.o. female POD#1 s/p Ex Lap, resection of intraabdominal mass Patient seen and examined. She reported increased abdominal pain. Was extremely anxious and crying upon entering the room but easily calmed down during conversation. Patient is tolerating oral intake. Dooley in place. She denies any vaginal bleeding. She is ambulating without difficulty. She is passing flatus. She denies Fever/Chills, Chest Pain, SOB, N/V. Vitals: Vitals: 10/07/19 1145 10/07/19 1220 10/07/19 1740 10/07/19 2146 BP: 105/67 110/62 (!) 141/67 107/67 Pulse: 78 70 104 94 Resp: 11 16 14 14 Temp: 97.6 F (36.4 C) 98.8 F (37.1 C) 97.9 F (36.6 C) TempSrc: Temporal Temporal Temporal SpO2: 100% 94% 96% Weight: Height: Intake/Output: Current Shift: No intake/output data recorded. Physical Exam: Gen: NAD, alert and cooperative HEENT: Normocephalic, atraumatic, EOMI, MMM Resp: CTABL, no WRR Card: RRR, no murmur Abd: soft, NT/ND, no rebound, no guarding. Present BS Incisions: C/D/I, minimal dried blood on opsite Ext: No LE edema, no calf tenderness or swelling Medications: Current Facility-Administered Medications Medication Dose Route Frequency Provider Last Rate Last Dose sodium chloride flush 0.9 % injection 10 mL 10 mL Intravenous 2 times per day Allie Lebron MD sodium chloride flush 0.9 % injection 10 mL 10 mL Intravenous PRN Allie Lebron MD acetaminophen (TYLENOL) tablet 650 mg 650 mg Oral Q4H PRN Allie Lebron MD oxyCODONE (ROXICODONE) immediate release tablet 5 mg 5 mg Oral Q4H PRN Allie Lebron MD Or oxyCODONE (ROXICODONE) immediate release tablet 10 mg 10 mg Oral Q4H PRN Allie Lebron MD 10 mg at 10/07/191944 HYDROmorphone (DILAUDID) injection 0.25 mg 0.25 mg Intravenous Q3H PRN Allie Lebron MD Or HYDROmorphone (DILAUDID) injection 0.5 mg 0.5 mg Intravenous Q3H PRN Allie Lebron MD 0.5 mg at 10/08/19 0003 ketorolac (TORADOL) injection 30 mg 30 mg Intravenous Q6H Allie Lebron MD 30 mg at 10/07/191944 ondansetron (ZOFRAN) injection 4 mg 4 mg Intravenous Q8H PRN Allie Lebron MD lactated ringers infusion Intravenous Continuous Allie Lebron MD 75 mL/hr at 10/07/19 1319 melatonin tablet 1 mg 1 mg Oral Nightly PRN Allie Lebron MD 1 mg at 10/07/192103 Diagnostics: No results found. Labs: Admission on 10/07/2019 Component Date Value Ref Range Status ABO Grouping 10/07/2019 O NA Final Rh Type 10/07/2019 POS NA Final Test Performed by [facility], [address] [place] [id number] Antibody Screen 10/07/2019 NEG NA Final Test Performed by [facility], [address] [place] [address] Assessment/Plan: Sally Vargas 39 y.o. female POD#1 s/p Ex Lap, resection of intraabdominal mass 1. Postoperative status - Doing well, vitals stable - remove dooley this AM - Encourage ambulation and use of incentive spirometer - Will give one time additional dose of dilaudid given increased pain - simethicone for gas pain - DVT Proph:SCDs while in bed - Abx:not indicated - Diet:General - ADAT - discontinue IVF Active Problems: S/P laparotomy Resolved Problems: * No resolved hospital problems. * Shanna Rice MD 10/08/2019, 12:22 AM Associated attestation - Delon Palacios MD - 10/08/2019 9:52 AM EST Pt rounded with residents, doing well post op Continue POC * Allie Lebron MD - 10/07/2019 5:31 PM EST Pt doing well. No complaints. Tolerating PO. Denies n/v, CP, SOB, calf pain. Dooley in place. Ambulating without difficulty. Pain controlled. Vitals: 10/07/19 1220 BP: 110/62 Pulse: 70 Resp: 16 Temp: 97.6 F (36.4 C) SpO2: 100% Gen- AOx3, NAD Heart- RRR, S1S2 Lungs- CTAB Abd- soft, NT, mildly distended, no r/g, +BS Incision- bandage in place with old blood Ext- no edema or tenderness A/P: Continue postoperative care. Encourage IS use and ambulation. Dooley out in the AM and will heplock once tolerating PO. Requesting melatonin for sleep, will order. * Eleanor Waters RN - 10/07/2019 9:[address] Palacios at bedside to discuss patient consent. Patient signed and witnessed by RN. Patient takento surgery at this time. * Eleanor Waters RN - 10/07/2019 8:54 AM EST Patient chart placed at triage desk, stop sign placed at bedside, waiting for h and p and consent. Patient has questions regarding procedure being performed. * Eleanor Waters RN - 10/07/2019 8:20 AM EST RN paged Dr. Palacios regarding patient consent. Waiting for response. documented in this encounterSUMMA Work Phone: [phone] History of Present illness Narrative* Sarah Fernández RN - 09/30/2019 10:00 AM EST Surgery Scheduling notified of chlorhexadine allergy. * Sarah Fernández RN - 09/30/2019 10:00 AM EST Informed pt of need to refrain from smoking, vaping, using snuff or chew for 24 hours before surgery. Informed pt of anesthesia's right to cancel surgery if they have used these products. Pt verbalizes understanding. documented in this encounterSUMMA Work Phone: [phone] History of Present illness Narrative* Kilo Lucero RN - 09/05/2019 1:10 PM EST Tolerating diet. Good pain control. Instructed to call dr lorenzo office with temp>101 or unrelieved pain. refusing wheelchair for discharge. Ambulated with boyfriend for discharge home. Instructedno driving today or driving while on percocet * Kilo Lucero RN - 09/05/2019 1:[address] tremaine boland due to no follow up appointment with urology. Stated to proceed with discharge and office will call with appointment * Penny Duenas - 09/05/2019 9:45 AM EST .Nutrition rescreen completed. Chart reviewed. Patient to be monitored and followed by the diet prototype technician.JIM Ratliff * Regina Gilmore RN - 09/05/2019 8:47 AM EST Patient states no family present at this time to update. * Cornel Henry DO - 09/05/2019 8:15 AM EST Patient underwent cystoscopy, bilateral retrograde pyelograms, right ureteroscopy. No stones visualized in ureter No stent left as ureter did appear patent Ok to d/c from urologic perspective Cornel Henry DO Urology, PGY-2 0851 * Maureen Stone MD - 09/05/2019 6:29 AM EST UROLOGY PROGRESS NOTE PATIENT NAME: Sally Vargas DATE OF : 1980 ADMISSION DATE: 09/03/2019 9:10 AM TODAY'S DATE: 09/05/2019 Subjective No acute events overnight. No fevers Still with right flank pain Objective VS: BP 97/62 Pulse 73 Temp 97.4 F (36.3 C) (Temporal) Resp 18 SpO2 96% Vitals: 09/05/19 0617 BP: 97/62 Pulse: 73 Resp: 18 Temp: 97.4 F (36.3 C) SpO2: 96% I & O - 24hr: Intake/Output Summary (Last 24 hours) at 09/05/2019 0629 Last data filed at 09/05/2019 0548 Gross per 24 hour Intake 3408 ml Output Net 3408 ml Physical Exam: General: Neck: Resp: Abdomen: No acute distress Supple Normal effort Soft, non-tender, nondistended : TTP RLQ, R CVA Skin: Skin color, texture, turgor normal, no rashes or lesions Labs and Imaging Studies Labs: CBC: Recent Labs 09/04/193 09/05/19 0007 WBC 7.1 7.0 HGB 12.3 11.5* HCT 36.7 34.8* MCV 91.3 90.7 PLT 211 204 BMP: Recent Labs 09/04/19 0143 09/05/19 0007 NA 138 140 K 3.5 4.0 CL 103 108* CO2 26 24 BUN 10 5* CREATININE 0.81 0.79 Magnesium: Lab Results Component Value Date MG 1.9 09/04/2019 Phosphate: No results found for: PHOS PT/INR: No results for input(s): PROTIME, INR in the last 72 hours. U/A: Lab Results Component Value Date LEUKOCYTESUR NEG 03/31/2017 LEUKOCYTESUR NEG 10/09/2015 PHUR 5.5 10/09/2015 SPECGRAV 1.025 10/09/2015 GLUCOSEU NORM 03/31/2017 Urine Culture: Component Value Date/Time LABURIN No growth (<1,000 CFU/ml). 09/03/2019 1444 Imaging Studies: KUB (-) CT a/p 09/03: There are 3 nonobstructive stones up to 3 mm in the right kidney. Right hydroureter. There are two 2 mm stone at the distal right ureter approximately 2 cm proximal to the right UVJ. There is an obstructive stone at the right UVJ measuring 4 mm. Nonobstructive 2 mm stone in the left kidney. Assessment and Plan ASSESMENT: 39 y.o. female with several calculi, most notably obstructing 4mm R UVJ stone PLAN: - Pain control - IVF - Flomax - Strain urine - NPO - OR today - Can be discharged following procedure Brian Almendarez, PGY-4 09/05/2019 6:29 AM For questions/concerns please page blocker and cutter contact lens Urology resident Patient was seen and evaluated. The history and physical has been reviewed. The pertinent findings from the history of present illness, past medical history, family history, social history, review of systems, and physical exam havebeen noted and confirmed that are unchanged. Discussed with the urology resident. Agree with assessment and plan Patient has three distal right ureteral calcului. Discussed options including observation, conservative therapy, Ureteroscopic laser lithotripsy withstent placement. Discussed indications for ureteroscopic laser lithotripsy and stent placement, discussed procedure,expectations, risks and alternatives. Discussed possible need for additional procedures, also discussed risks including, but not limited to Failure of procedure, Bleeding, infection, TN, Stroke, PE, . Patient understands and agrees to proceed. Informed consent obtained. Spear * Raghu Rivers MD - 09/04/2019 10:23 AM EST Hospitalist Progress Note 09/04/2019 10:24 AM Subjective: Admit Date: 09/03/2019 PCP: Marcelino Albert MD Interval History: still with flank pain today No overnight issues. Denies chest pain, sob, abdominal pain, nausea, vomiting, diarrhea, constipation, fevers, or chills. DIET GENERAL; Diet NPO, After Midnight Exceptions are: Sips with Meds Date 09/04/19 0000 - 09/04/19 2359 Shift 0114-2696 [id number] 7085-6270 24 Hour Total INTAKE I.V. 1478 1478 Shift Total 1478 1478 OUTPUT Shift Total Weight (kg) No data found. Medications: sodium chloride 125 mL/hr at 09/03/19 1439 sodium chloride flush 10 mL Intravenous 2 times per day enoxaparin 40 mg Subcutaneous Daily cefTRIAXone (ROCEPHIN) IV 1 g Intravenous Q24H tamsulosin 0.4 mg Oral Daily Recent Labs 09/04/19 0143 WBC 7.1 HGB 12.3 PLT 211 Recent Labs 09/04/19 0143 NA 138 K 3.5 CL 103 CO2 26 BUN 10 CREATININE 0.81 GLUCOSE 76 No results for input(s): AST, ALT, ALB, BILITOT, ALKPHOS in the last 72 hours. No results found for: TRIG, HDL, LDLCALC, CHOL No results for input(s): INR in the last 72 hours. No results for input(s): CKTOTAL, CKMB, TROPONINI in the last 72 hours. Objective: Vitals: BP (!) 106/58 Pulse 66 Temp 98.1 F (36.7 C) (Temporal) Resp 18 SpO2 95% Pulse Ox: SpO2 Av.5 % Min: 95 % Max: 98 % Supplemental O2: General appearance: Alert and cooperative with exam Lungs: clear to auscultation bilaterally Heart: regular rate and rhythm, S1, S2 normal, no murmur, click, rub or gallop Abdomen: soft, non-tender; bowel sounds normal; no masses, no organomegaly Extremities: extremities normal, atraumatic, no cyanosis or edema Neurologic: No obvious focal neurologic deficits. Assessment Principal Problem: Renal stone Active Problems: Pelvic pain in female Pelvic pain Resolved Problems: * No resolved hospital problems. * following with --plan OR tomm if no passed stone Await urine cx Her Culinary Manager/ pelvic findings can likely be worked up as outpt See orders, continue POC Advance Directive: Full Code Theresa Palacios Hospitalist * Per Galicia MD - 09/04/2019 8:04 AM EST UROLOGY PROGRESS NOTE PATIENT NAME: Sally Vargas DATE OF : 1980 ADMISSION DATE: 09/03/2019 9:10 AM TODAY'S DATE: 09/04/2019 Subjective No acute events overnight. Afebrile. Still with right flank pain Objective VS: BP (!) 106/58 Pulse 66 Temp 98.1 F (36.7 C) (Temporal) Resp 18 SpO2 95% Vitals: 09/04/19 0514 BP: (!) 106/58 Pulse: 66 Resp: 18 Temp: 98.1 F (36.7 C) SpO2: 95% I & O - 24hr: Intake/Output Summary (Last 24 hours) at 09/04/2019 0804 Last data filed at 09/04/2019 0627 Gross per 24 hour Intake 1977 ml Output Net 1977 ml Physical Exam: General: Neck: Resp: Abdomen: No acute distress Supple Normal effort Soft, non-tender, nondistended : TTP RLQ, R CVA Skin: Skin color, texture, turgor normal, no rashes or lesions Labs and Imaging Studies Labs: CBC: Recent Labs 09/04/19 0143 WBC 7.1 HGB 12.3 HCT 36.7 MCV 91.3 PLT 211 BMP: Recent Labs 09/04/19 0143 NA 138 K 3.5 CL 103 CO2 26 BUN 10 CREATININE 0.81 Magnesium: Lab Results Component Value Date MG 1.9 09/04/2019 Phosphate: No results found for: PHOS PT/INR: No results for input(s): PROTIME, INR in the last 72 hours. U/A: Lab Results Component Value Date LEUKOCYTESUR NEG 03/31/2017 LEUKOCYTESUR NEG 10/09/2015 PHUR 5.5 10/09/2015 SPECGRAV 1.025 10/09/2015 GLUCOSEU NORM 03/31/2017 Urine Culture: Component Value Date/Time LABURIN Group B streptococcus (A) 03/31/2017 0412 LABURIN 03/31/2017411 10,000-50,000 CFU/ml Susceptibility testing not routinely performed. Group B streptococcus is universally susceptible to beta-lactam antibiotics and vancomycin. If patient is beta-lactam allergic, please call [facility] Microbiology lab ([phone])OR [facility] Microbiology lab ([phone]) within 2 days to request susceptibility testing. If isolated from urine, Group B strep may indicate colonization or infection. Imaging Studies: KUB (-) CT a/p 09/03: There are 3 nonobstructive stones up to 3 mm in the right kidney. Right hydroureter. There are two 2 mm stone at the distal right ureter approximately 2 cm proximal to the right UVJ. There is an obstructive stone at the right UVJ measuring 4 mm. Nonobstructive 2 mm stone in the left kidney. Assessment and Plan ASSESMENT: 39 y.o. female with several calculi, most notably obstructing 4mm R UVJ stone PLAN: - Pain control - IVF - Flomax - Strain urine - NPO after midnight - Plan for OR tomorrow if still having pain - Procedure discussed, questions answered Brian Almendarez, PGY-4 09/04/2019 8:04 AM For questions/concerns please page blocker and cutter contact lens Urology resident The admission history and physical has been reviewed. The pertinent findings from the history of present illness, past medical history, family history, social history, review of systems, and physicalexams have been noted and confirmed and are unchanged. Seen and independently evaluated by me. Discussed with the urology resident. I concur with the assessment and plan. All aspects of the procedure, along with the pros & cons of intervention and the potential associated risks & complications have been discussed with the patient, any questions have been answered, and informed consent has been obtained. Per Galicia M.D. 09/04/2019 documented in this [facility] Work Phone: [phone] Hospital course Narrative* Blanche Vogt MD - 09/05/2019 8:41 AM EST Hospitalist Discharge Summary Sally Vargas : 1980 Admit date: 09/03/2019 Discharge date: 09/05/19 Admitting Physician: Raghu Rivers MD Primary Care Physician: Marcelino Albert MD Discharge Diagnosis: Obstructing renal calculi. HLD depression Hospital Course: The patient is a 39 y.o. female who [facility] ''There are 3 nonobstructive stones up to 3 mm in the right kidney. Right hydroureter. There are two 2 mm stone at the distal right ureter approximately 2 cm proximal to the right UVJ. There is an obstructive stone at the right UVJ measuring 4 mm. Nonobstructive 2 mm stone in the left kidney. The patient was admitted to the medical team and urology was consulted. Patient had cystoscopy , retrograde pyelogram and fluoroscopy done. She had already passed the stone. She was discharged in stable condition. Urine culture did not grow any thing. Diet NPO, After Midnight Exceptions are: Sips with Meds Vitals: BP 102/69 Pulse 85 Temp 99.1 F (37.3 C) (Temporal) Resp 17 SpO2 97% General appearance: alert and cooperative with exam Lungs: clear to auscultation bilaterally Heart: regular rate and rhythm, S1, S2 normal, no murmur, click, rub or gallop Abdomen: soft, non-tender; bowel sounds normal; no masses, no organomegaly Extremities: extremities normal, atraumatic, no cyanosis or edema Neurologic: No obvious focal neurologic deficits. Recent Labs 09/04/19 0143 09/05/19 0007 WBC 7.1 7.0 HGB 12.3 11.5* PLT 211 204 Recent Labs 09/04/19 0143 09/05/19 0007 NA 138 140 K 3.5 4.0 CL 103 108* CO2 26 24 BUN 10 5* CREATININE 0.81 0.79 GLUCOSE 76 85 No results for input(s): AST, ALT, ALB, BILITOT, ALKPHOS in the last 72 hours. Significant Diagnostic Studies: Xr Abdomen (kub) (single Ap View) Result Date: 09/03/2019 Patient Name: SALLY VARGAS ---Diagnostic Radiology--- Exam Date/Time 09/03/2019 17:35:36 EST Exam CR Abdomen AP Ordering Physician MD RACH,ITALO Ha Accession Number [id number] CPT4 Codes 21024 () Reason For Exam nephrolithiasis Report ABDOMEN, Single View:INDICATION: Nephrolithiasis COMPARISON: None. Supine images of the abdomen were obtained at 1733 hours. A moderate amount of feces is noted throughout the colon. There are no obvious findings to suggest pneumoperitoneum. No abnormal calcifications are identified. There is no appreciable mass effect. Review of the osseous structures demonstrate no gross abnormality. IMPRESSION: Unremarkable abdomen. Report Dictated on --- Final --- Dictated: 09/03/2019 8:46 pm Dictating Physician: DO WANG ALFRED Signed Date and Time: 09/03/2019 8:47 pm Signed by: DO WANG ALFRED Transcribed Date and Time: 09/03/2019 8:46 Discharge Medications: Sally Vargas Home Medication Instructions ANITA:[id number] Printed on:09/05/19 0841 Medication Information ALPRAZolam (XANAX) 0.5 MG tablet Take 0.5 mg by mouth gabapentin (NEURONTIN) 300 MG capsule Take 300 mg by mouth metaxalone (SKELAXIN) 800 MG tablet Take 800 mg by mouth oxyCODONE-acetaminophen (PERCOCET) 5-325 MG per tablet Take 1 tablet by mouth every 4 hours as needed for Pain for up to 3 days. polyethylene glycol (MIRALAX) PACK packet Take 17 g by mouth daily as needed (CONSTIPATION) QUEtiapine (SEROQUEL XR) 150 MG TB24 extended release tablet Take 150 mg by mouth daily tamsulosin (FLOMAX) 0.4 MG capsule Take 1 capsule by mouth daily for 5 days traZODone (DESYREL) 100 MG tablet Consults: urology Disposition: Patient discharged in stable condition. Greater than 30 minutes spent discharging the patient and coming up with patient discharge plan. Follow up with Marcelino Albert MD in 1-2 weeks. Signed: BLANCHE VOGT MD 09/05/2019, 8:41 AM [facility] Work Phone: Consult note Author Blue Friend [facility] December 04, 2023 4:55pm Note Date/Time December 04, 2023 4:5 5pm [facility] Medical Records Department [address] [place] [id number] Consultation - GI 12/04/23 1651 MR#: [id number] Acct: [id number] Name: SALLY VARGAS Rep #:[id number] : 1980 43 From: Blue Rose DO PCP: Dr. Silverio Haley MD Status:AD M IN Location: [facility] CV956-5 HPI Consult Data Date of Consult: 12/04/23 HPI Narrative Reason for Consultation: Abdominal pain with nausea and vomiting HPI Narrative: SALLY VARGAS, is a 43 F who presented to the ED with worsening abdominal painand intractable nausea and vomiting. Patient seen at bedside in the ED. Patient was laying in bed and conversing normally. She appeared to be in very mild distress which she reported was due to her abdominal pain. States that shehas history of chronic pancreatitis and her last flareup was about 1 year ago. She has been on Creon since then. States that she was doing fairly well until a few weeks ago, when she felt like she was starting to have another flareup of her pancreatitis. She went to the ED at [place] about 2 weeks ago for this. Her CT abdomen pelvis was benign andher lipase level was noted to be normal at that time, so she was discharged withplan for outpatient follow-up. She was supposed to follow-up with the GI doc this morning but was unable to gettransportation to the appointment, so they recommended that she come to the ED for further evaluation. Noted to be hemodynamically stable in the ED. Lab workup is fairly benign including a normal lipase level. ED physician deferred abdominal imaging since she had just been scanned 2 weeks ago. They had her tryp.o. intake but she fairly quickly vomited what she had eaten. Hospitalist was then contacted for admission for intractable nausea and vomiting. Patient was hospitalized at [facility] in 2019 for significant abdominal pain. She wasfound to have a very elevated lipase in the 4000's at that time. Notably had had a cholecystectomy prior to that and liver enzymes were not elevated, so had no concern for gallbladder pancreatitis. Her pancreas appeared normal on CT abdomen pelvis at that time. On review of multiple CT scans of the abdomen, patient has always had a normal pancreas noted. She has had multiple liver cysts noted on several scans which have apparently been thought to be benign. The cause of her pancreatitis was unclear and thought to be possibly medication induced. Patient currently states that her abdominal pain feels similar to her pain over the past few weeks. She points to her epigastric region and over into her left upper quadrant when asked where the pain is. She denies any symptoms of acid reflux. States that the last time she was able to keep any significant amount of food down was about 2 weeks ago. States that she has nausea with vomiting within seconds after eating. She denies any episodes where she was able to keep food down for 30 minutes to an hour or more and then had vomiting. States the vomiting is more liquid in consistency with stomach acid. States that she has been having fairly normal bowel movements every day over that timeframe. Denies any bilious vomiting. Patient does have a BMI of 39, denies losing any weight recently that she is aware of. She denies any recent fevers or chills. Denies any chest pain or shortness of breath. No other acute concerns this time. [facility] Medical History (Updated 12/03/23 @ 17:43 by Thi Hubbard) Anxiety Bipolar disorder Chronic pain History of renal calculi History of uterine cancer (2006) Hyperlipidemia Incomplete right bundle branch block Kidney stones Lung nodule Migraine Obesity Ovarian cyst Pancreatitis Right tubo-ovarian mass Smoker Ureteral stone with hydronephrosis Home Medications gabapentin 400 mg capsule 400 mg PO TID PRN NEUROPATHY 10/03/20 [History Last Taken 12/02/23] quetiapine 50 mg tablet 50 - 100 mg PO QHS SLEEP 09/07/22 [History Last Taken 12/02/23] aripiprazole 10 mg tablet 10 mg PO DAILY DEPRESSION 10/25/23 [History Last Taken 12/02/23] lorazepam 0.5 mg tablet 0.5 mg PO DAILY PRN ANXIETY 10/25/23 [History Last Taken 12/02/23] diphenhydramine HCl 25 mg capsule (Banophen) 25 mg PO QHS ALLERGIES 12/03/23 [History Last Taken 12/02/23] oxycodone 5 mg tablet 5 mg PO Q4H PRN PRN Pain Score 6-10 3 days #15 tabs 12/04/23 [Rx Last Taken Unknown] Allergy/AdvReac Type Severity Reaction Status Date / Time Iodinated Contrast Media [CT] Allergy Anaphylaxis Verified 12/03/23 14:22 ketorolac tromethamine Allergy Rash Verified 12/03/23 14:22 [From Toradol] metronidazole [From Flagyl] Allergy Hives Verified 12/03/23 14:22 Penicillins Allergy Hives Verified 12/03/23 14:22 dicyclomine [From Bentyl] AdvReac Mild Hives Verified 12/03/23 14:22 aspirin AdvReac Upset Verified 12/03/23 14:22 Stomach Family History Aunt Breast cancer Grandfather CAD (coronary artery disease) Father Heart disease, Onset Age: 73 Triple bypass Mother Heart disease, Onset Age: 62 Other Diabetes Surgical History (Updated 12/03/23 @ 17:42 by Thi Hubbard) H/O ovarian cystectomy (09/2019) History of bilateral oophorectomy History of cholecystectomy History of hysterectomy History of tubal ligation Social History household members: none Smoking Status: Current every day smoker tobacco type: cigarettes Tobacco: How many years used: 15 substance use type: does not use ROS Constitutional Constitutional: Denies chills, fatigue, fever(s) or weakness Cardiovascular Cardiovascular: Denies chest pain Respiratory/Chest Respiratory/Chest: Denies cough, shortness of breath at rest or wheezing Gastrointestinal Gastrointestinal: Reports abdominal pain; Denies constipation or diarrhea Musculoskeletal Musculoskeletal: Denies arthralgias, back pain or myalgias Neurologic Neurologic: Denies dizziness, focal weakness or headache(s) Physical Exam Const alert, oriented x3 and no apparent distress Constitutional Narrative: Middle-age female, morbidly obese, laying fairly comfortably in bed, conversing normally, had some intermittent wincing noted throughout our conversation but otherwise did not appear to be in any acute distress. General Appearance: cooperative and comfortable HEENT normocephalic, head/scalp atraumatic, hearing grossly normal bilaterally, nasal mucous membranes and turbinates normal and moist oral mucous membranes Eyes PERRL, EOMs intact bilaterally and conjunctivae normal Neck full ROM Lymph Lymphatic: no lymphadenopathy noted Chest inspection of chest normal Resp normal respiratory effort, normal air movement, no use of accessory muscles and clear to auscultation bilaterally Cardio regular rate, regular rhythm, no murmurs and peripheral pulses 2+ throughout GI GI Narrative: Abdomen soft and nondistended. Mild tenderness to palpation noted in the epigastric and left upper quadrant regions. No guarding or rebound tenderness noted. Back/Spine normal ROM Extremity normal to inspection, full ROM and no pedal edema Skin no rashes or lesions noted Neuro moves all extremities and no focal motor deficits Speech: speech normal Psych mental status grossly normal Lab / Micro Data 12/04/23 06:35 12/04/23 06:35 Labs: Laboratory Results - last 24 hr 12/04/23 06:35: WBC 5.7, RBC 4.17 L, Hgb 12.7, Hct 39.0, MCV 93.5, MCH 30.5, MCHC 32.6, RDW Std Deviation 43.2, RDW Coeff of Shun 12.8, Plt Count 209, MPV 10.7, ESR 6, Sodium 141, Potassium 3.7, Chloride 111 H, Carbon Dioxide 25.0, Anion Gap 5, BUN 8, Creatinine 1.01, Estim Creat Clear Calc 74.33, Est GFR (MDRD) Af Amer 77, Est GFR (MDRD) Non-Af 63, BUN/Creatinine Ratio 7.9 L, Obrrjtd43, Calcium 8.8, C-React Prot Ext Range 6.61 H Assessment & Plan Assessment/Plan (1) Abdominal pain: (2) Intractable nausea and vomiting: PLAN: Plan Patient is a 43-year-old female who presented to [facility] ED on 12/03/2023 with abdominal pain and intractable nausea and vomiting. Abdominal pain, intractable nausea and vomiting, reported history of chronic pancreatitis. On reviewing her CT scan abdomen pelvis I do not see any signs ofacute or chronic pancreatitis. She does not have any calcifications, pancreaticductal dilation, pseudocyst. I would recommend an MRCP to see if she has any signs of pancreatic divisum. Her symptoms seem to be more of gastroparesis than acute on chronic pancreatitis. She has not had a gastric emptying study which I think she would benefit from. She had an upper and lower endoscopy in the past for similar complaints but that did not show anything as per the patient. At this time she appears to be comfortable. I will advance her diet to see how she does and tolerating foods after she undergoes MRCP. Presented with worsening epigastric abdominal pain, nausea/vomiting and inability to tolerate p.o. intake. Charges/Coding Visit Charges Inpatient E&M: 42538 Init Hosp L3 12/04/23 1655 <Electronically signed by Blue Rose DO> Cosigner Signature (if applicable): CC: Dr. Jonh Geiger DO; Dr. Silverio Haley MD; Blue Rose DO~ Signed [facility] Work Phone: Discharge summary Author Eduar Gurrola [facility] December 04, 2023 4:51pm Note Date/Time December 04, 2023 4:4 6pm [facility] Medical Records Department [address] [place] [address] Instructions for Home/Discharge Instructions 12/04/23 1645 MR#: [id number] Acct: [id number] Name: SALLY VARGAS Rep #:[id number] : 1980 43 From: Eduar Gurrola DO PCP: Dr. Silverio Haley MD Status:AD M IN Discharge Instructions Diet Discharge Diet: No restrictions Activity Discharge Activity: Return to Normal Activity Weight Bearing Status: Full weight bearing Follow Up Care Test Results: Test results from this visit will be discussed in further detail at your follow- up appointment, if applicable. Discharge Plan Admission Admit Date/Time: 03/21/24 16:46 Primary Reason for Your Visit: chronic abdominal pain Attending Provider: Eduar Gurrola Primary Care Provider: Silverio Haley Consulting Providers: Blue Rose; Jonh Geiger Discharge Orders/Prescriptions Prescriptions: New oxycodone 5 mg Tablet 5 mg PO Q4H PRN PRN (Reason: Pain Score 6-10) 3 Days Qty: 15 0RF Continued gabapentin 400 MG capsule 400 mg PO TID PRN (Reason: NEUROPATHY ) Patient Comments: PT STATES THEIR DOCTOR RECENTLY UPPED THE DOSE THAT CAN BE TAKEN quetiapine 50 mg tablet 50 - 100 mg PO QHS lorazepam 0.5 mg tablet 0.5 mg PO DAILY PRN (Reason: ANXIETY ) aripiprazole 10 mg tablet 10 mg PO DAILY diphenhydramine HCl [Banophen] 25 mg capsule 25 mg PO QHS Referrals / Follow Up: Silverio Haley MD [Primary Care Provider] - Within 1 Week Disposition Disposition (needs filled in before D/C Order can be placed): Home, Self Care 12/04/23 1651<Electronically signed by Eduar Gurrola DO>Eduar Gurrola DO CC: Dr. Jonh Geiger DO; Dr. Silverio Haley MD; Blue Rose DO ~ Signed [facility] Work Phone: Evaluation + Plan note No data available for this section [facility] Evaluation note* Diagnosis Arthralgia, unspecified joint- Primary Bilateral chronic knee pain documented in this encounter [facility] note* Diagnosis Renal calculus, bilateral- Primary Calculus of kidney Pelvic pain in female Unspecified symptom associated with female genital organs Pelvic pain documented in this encounter [facility] Work Phone: Evaluation note* Diagnosis Adnexal mass- Primary Other specified symptom associated with female genital organs documented [facility] Work Phone: Evaluation note* Diagnosis Pelvic pain in female Unspecified symptom associated with female genital organs Pelvic mass in female Abdominal or pelvic swelling, mass or lump, unspecified site documented in this encounter [facility] Work Phone: Evaluation note* Diagnosis S/P laparotomy- Primary Other postprocedural status documented in this encounter [facility] Work Phone: Evaluation noteNo assessment information available [facility] Work Phone: Evaluation note* Diagnosis Generalized abdominal pain- Primary Abdominal pain, generalized [facility]* Diagnosis Encounter for screening mammogram for [facility] cancer [facility] Diagnosis Acute cough- Primary [facility] Diagnosis COVID-19- Primary [facility]* Diagnosis Subacute cough- Primary Cough [facility]* Diagnosis Fatigue, unspecified type- Primary Former smoker Personal history of tobacco use, presenting hazards to health Reactive depression Dysthymic disorder Generalized anxiety disorder Impaired fasting glucose Encounter for screening for cardiovascular disorders Screening for other and unspecified cardiovascular conditions [facility] Diagnosis Vitamin D deficiency- Primary Unspecified vitamin D deficiency Vitamin B12 deficiency Other B-complex deficiencies [facility] Diagnosis Sinobronchitis- Primary Unspecified sinusitis (chronic) [facility] Diagnosis Upper respiratory infection with cough and congestion- Primary Acute upper respiratory infections of unspecified site Acute cough [facility] Diagnosis Acute cough- Primary [facility] Diagnosis Acute cough Upper respiratory infection with cough and congestion Acute upper respiratory infections of unspecified site [facility]* Diagnosis Pain, dental- Primary Unspecified disorder of the teeth and supporting structures [facility] Diagnosis Cough, unspecified type- Primary [facility]* Diagnosis Moderate persistent asthmatic bronchitis with acute exacerbation- Primary Acute cough Upper respiratory infection with cough and congestion Acute upper respiratory infections of unspecified site [facility] Diagnosis Breast infection- Primary Inflammatory disease of breast [facility]* Diagnosis Open wound of left breast, subsequent encounter- Primary [facility]* Diagnosis Syncope, unspecified syncope type- Primary Vertigo Dizziness and giddiness Open wound Open wound(s) (multiple) of unspecified site(s), without mention of complication Vitamin D deficiency Unspecified vitamin D deficiency Vitamin B12 deficiency Other B-complex deficiencies Hyperlipidemia, unspecified hyperlipidemia type Adjustment insomnia Transient disorder of initiating or maintaining sleep Migraine without aura and without status migrainosus, not intractable Migraine without aura, without mention of intractable migraine without mention of status migrainosus Obesity, Class II, BMI 35-39.9 Obesity, unspecified Screening for HIV (human immunodeficiency virus) Special screening examination for other specified viral diseases Special screening examination for viral disease Special screening examination for unspecified viral disease Encounter for therapeutic drug monitoring [facility] Diagnosis Liver cyst- Primary Other specified disorders of liver [facility]* Diagnosis Acute cough- Primary Sinobronchitis Unspecified sinusitis (chronic) documented [facility]* Diagnosis Acute pancreatitis without infection or necrosis, unspecified pancreatitis type- Primary Low sodium levels Hyposmolality and/or hyponatremia Migraine without aura and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 Operator No November 17 8:08pm Hospital Course Note Culinary Manager Discharge Summary ? Melyssa ent Name: Sally Vargas Patient : 1980 Primary Care Physician: Marcelino Albert MD Admit Date: 10/07/2019 Attending Provider: Delon Palacios MD ? Principal Diagnosis: pelvic mass ? Other Diagnosis: S/P laparotomy [Z98.890] Patient Active Problem List Diagnosis ? Pelvic pain in female ? Abdominal pain, chronic, generalized ? Postoperative generalized abdominal pain ? Renal calculus, bilateral ? Pelvic pain ? Right ureteral calculus ? S/P laparotomy ? ? Surgical Operations & Procedures: exploratory laparotomy, resection of intra-abdominal mass on 10/07/2019 ? Consultations: None ? Pertinent Findings & Procedures: Sally Vargas is a 39 y.o. female admitted for surgical treatment of intra-abdominal mass. She underwent exploratory laparotomy, resection of intra-abdominal mass on 10/07/2019. All post-operative milestones were met. Hospital course normal, discharged home 10/09/19. Follow up in 2 weeks. Discharge instructions reviewed and questions an (more content not included)... Reason for Referral Specialty Diagnoses / Procedures Referred By Alma t Referred To Contact Rheumatology Diagnoses Bilateral chronic knee pain Arthralgia, unspecified joint Sarah Morrison MD [address] [place] [address] Ashley Golden MD [address] [place] [address] Referral ID Status Reason Start Date Expiration Date V isits Requested Visits Authorized [id number] Closed Specialty Services Required/Melyssa ent's Best Interest 06/26/2021 06/26/2022 1 1 Specialty Diagnoses / Procedures Referred By Contac t Referred To Contact Diagnoses Acute cough Upper respiratory infection with cough and congestion No Akers APRN.CLASSROOM TEACHER [address] [place] [address] Referral ID Status Reason Start Date Expiration Date Visits Re quested Visits Authorized [id number] Closed 1 1 Specialty Diagnoses / Procedures Referred By Contac t Referred To Contact [facility] Diagnoses Vertigo Procedures CONSULT TO PHYSICAL THERAPY PHYSICAL THERAPY EVALUATION HIGH COMPLEX 45 MINS Merced Hutchinson CAR ATTENDANT.CLASSROOM TEACHER [address] [place] [address] [facility] [address] [place] [address] Referral ID Status Reason Start Date Expiration Date Visits Requested Visits Authorized [id number] Pending Review Auto-Generat ed Referral 02/16/2023 02/16/2024 1 1 Specialty Diagnoses / Procedures Referred By Contac t Referred To Contact General Surgery Diagnoses Acute pancreatitis without infection or necrosis, unspecified pancreatitis type Intractable nausea and vomiting Right sided abdominal pain Chronic pancreatitis, unspecified pancreatitis type (HCC) Procedures CONSULT TO GENERAL SURGERY OFFICE/OUTPATIENT [facility] 60-74 MINUTES Merced Hutchinson APRN.CLASSROOM TEACHER [address] [place] [address] Referral ID Status Reason Start Date Expiration Date Visits Requested Visits Authorized [id number] Authorized PCP Requested Referral 03/30/2023 03/29/2024 1 1 Specialty Diagnoses / Procedures Referred By Contac t Referred To Contact Gastroenterology Diagnoses Acute pancreatitis without infection or necrosis, unspecified pancreatitis type Intractable nausea and vomiting Procedures CONSULT TO GASTROENTEROLOGY OFFICE/OUTPATIENT [facility] 60-74 MINUTES Merced Hutchinson APRN.CLASSROOM TEACHER [address] [place] [address] Referral ID Status Reason Start Date Expiration Date Visits Requested Visits Authorized [id number] Authorized PCP Requested Referral 03/30/2023 03/29/2024 1 1 Specialty Diagnoses / Procedures Referred By Contac t Referred To Contact Urology Diagnoses Calculus of kidney Procedures CONSULT TO UROLOGY OFFICE/OUTPATIENT [facility] 60-74 MINUTES Merced Hutchinson APRN.CLASSROOM TEACHER [address] [place] [address] Referral ID Status Reason Start Date Expiration Date Visits Requested Visits Authorized [id number] Authorized PCP Requested Referral 04/22/2023 04/21/2024 1 1 Specialty Diagnoses / Procedures Referred By Contac t Referred To Contact Urology Diagnoses RLQ abdominal pain History of kidney stones Procedures CONSULT TO UROLOGY OFFICE/OUTPATIENT [facility] 60 MINUTES Silverio Haley MD [address] [place], [place] [id number] Referral ID Status Reason Start Date Expiration Date Visits Requested Visits Authorized [id number] Authorized PCP Requested Referral 06/10/2024 06/10/2025 1 1 Specialty Diagnoses / Procedures Referred By Contac t Referred To Contact XR IMAGING Diagnoses Acute left ankle pain Localized swelling, mass and lump, left lower limb Procedures XR ANKLE GENERAL 3V AP/LAT/OBL LEFT RADEX ANKLE COMPLETE MINIMUM 3 VIEWS Silverio Haley MD [address] [place], [place] [id number] [place] [id number] Referral ID Status Reason Start Date Expiration Date Visits Requested Visits Authorized [id number] New Request Auto-Generat ed Referral 06/10/2024 07/10/2025 1 1 Specialty Diagnoses / Procedures Referred By Contac t Referred To Contact Diagnoses Acute asthmatic bronchitis Silverio Haley MD [address] [place], [place] [id number] Referral ID Status Reason Start Date Expiration Date V isits Requested Visits Authorized [id number] Pending Review 1 1 Referral ID Status Reason Start Date Expiration Date V isits Requested Visits Authorized [id number] Pending Review 1 1 Chief Complaint and Reason for Visit Chief Complaint RIGHT ABD PAIN COUGH BACK PN/RX HERE Chief Complaint FLANK Chief Complaint FLANK COUGH Chief Complaint COUGH sycope Chief Complaint COUGH sycope ABD PAIN Chief Complaint ABD PAIN SYNCOPE Chief Complaint ABD PAIN SYNCOPE gen weakness Chief Complaint SYNCOPE gen weakness right flank pain Chief Complaint SYNCOPE gen weakness right flank pain dental Abdominal pain Chief Complaint SYNCOPE gen weakness right flank pain dental Abdominal pain DENTAL Chief Complaint right flank pain dental Abdominal pain DENTAL sob Chief Complaint right flank pain dental Abdominal pain DENTAL sob SYNCOPE Chief Complaint DENTAL sob SYNCOPE headache Chief Complaint SYNCOPE headache R knee pain RIGHT KNEE Chief Complaint SYNCOPE headache R knee pain Chief Complaint headache R knee pain RIGHT KNEE INTRACTABLE NAUSEA/VOMITING Reason for Visit Abdominal pain History of pancreatitis Intractable nausea and vomiting Chief Complaint headache R knee pain RIGHT KNEE INTRACTABLE NAUSEA/VOMITING INTRACTABLE NAUSEA/VOMITING Reason for Visit Abdominal pain History of pancreatitis Intractable nausea and vomiting Chief Complaint headache R knee pain RIGHT KNEE INTRACTABLE NAUSEA/VOMITING INTRACTABLE NAUSEA/VOMITING SYNCOPIAL Reason for Visit Abdominal pain History of pancreatitis Intractable nausea and vomiting Chief Complaint headache R knee pain RIGHT KNEE INTRACTABLE NAUSEA/VOMITING INTRACTABLE NAUSEA/VOMITING SYNCOPIAL N/V Chief Complaint headache R knee pain RIGHT KNEE INTRACTABLE NAUSEA/VOMITING INTRACTABLE NAUSEA/VOMITING SYNCOPIAL N/V ABD PAIN Chief Complaint headache R knee pain RIGHT KNEE INTRACTABLE NAUSEA/VOMITING INTRACTABLE NAUSEA/VOMITING SYNCOPIAL N/V ABD PAIN abd pain Chief Complaint headache R knee pain RIGHT KNEE INTRACTABLE NAUSEA/VOMITING INTRACTABLE NAUSEA/VOMITING SYNCOPIAL N/V ABD PAIN abd pain Hospital FU E-ORDER ABD PAIN Reason for Visit Acute pancreatitis Nausea & vomiting Chief Complaint R knee pain RIGHT KNEE INTRACTABLE NAUSEA/VOMITING INTRACTABLE NAUSEA/VOMITING SYNCOPIAL N/V ABD PAIN abd pain Hospital FU E-ORDER ABD PAIN Reason for Visit Abdominal pain Acute pancreatitis Nausea & vomiting Chief Complaint Admit Date back August 21, 2024 1 0:00am ABDOMINAL PAINA October 04, 2024 4 :51pm FLANK PAIN November 17, 2024 5:24 pm Chief Complaint Admit Date back August 21, 2024 1 0:00am ABDOMINAL PAINA October 04, 2024 4 :51pm FLANK PAIN November 17, 2024 5:24 pm LOWER EXT November 22, 2024 10: 44am Additional Source Comments INFORMATION SOURCE (unrecogn ized section and content) DATE CREATED AUTHOR 10/21/2019 [facility] DATE CREATED AUTHOR AUTHOR'S ORGANIZ ATION 06/13/2021 [facility] DATE CREATED AUTHOR AUTHOR'S ORGANIZ ATION 06/19/2021 [facility] DATE CREATED AUTHOR AUTHOR'S ORGANIZ ATION 06/26/2021 [facility] DATE CREATED AUTHOR AUTHOR'S ORGANIZ ATION 10/24/2021 [facility] DATE CREATED AUTHOR AUTHOR'S ORGANIZ ATION 02/23/2023 [facility] DATE CREATED AUTHOR AUTHOR'S ORGANIZ ATION 02/08/2024 [facility] ([place]) DATE CREATED AUTHOR AUTHOR'S ORGANIZ ATION 12/03/2024 [facility] DATE CREATED AUTHOR AUTHOR'S ORGANIZ ATION 02/15/2025 [facility] DATE CREATED AUTHOR AUTHOR'S ORGANIZ ATION 03/03/2025 [facility] DATE CREATED AUTHOR AUTHOR'S ORGANIZ ATION 03/03/2025 [facility] DATE CREATED AUTHOR AUTHOR'S ORGANIZ ATION 05/14/2025 [facility] Care Teams (unrecognized sec tion and content) Director Of Securities And Real Estate Relationship Specialty Start Date End Date No, Physician [facility] PCP - General 04/30/21 Director Of Securities And Real Estate Relationship Specialty Start Date End Date Marcelino Albert MD [address] [place], [place] [id number] PCP - General Family Practice 04/05/21 Director Of Securities And Real Estate Relationship Specialty Start Date End Date Marcelino Albert MD [address] [place], [place] [address] [phone] PCP - General Family Practice 04/05/21 Director Of Securities And Real Estate Relationship Specialty Start Date End Date Marcelino Albert MD [address] [place], [place] [address] PCP - General Family Practice 04/05/21 Director Of Securities And Real Estate Relationship Specialty Start Date End Date Marcelino Albert MD [address] [place] [address] PCP - General Family Practice 04/05/21 Director Of Securities And Real Estate Relationship Specialty Start Date End Date Marcelino Albert MD [address] [facility] [place] [address] PCP - General Family Practice 04/05/21 Director Of Securities And Real Estate Relationship Specialty Start Date End Date Marcelino Albert MD [address] [facility] [place] [address] PCP - General Family Practice 04/05/21 Director Of Securities And Real Estate Relationship Specialty Start Date End Date Marcelino Albert MD [address] [place] [address] PCP - General Family Practice 04/05/21 Director Of Securities And Real Estate Relationship Specialty Start Date End Date Marcelino Albert MD [address] [place] [address] PCP - General Family Medicine 04/05/21 Director Of Securities And Real Estate Relationship Specialty Start Date End Date Marcelino Albert MD [address] [facility] [place] [address] PCP - General Family Medicine 04/05/21 Director Of Securities And Real Estate Relationship Specialty Start Date End Date Marcelino Albert MD [address] [place] [address] PCP - General Family Medicine 04/05/21 Director Of Securities And Real Estate Relationship Specialty Start Date End Date Marcelino Albert MD [address] [facility] [place] [address] PCP - General Family Medicine 04/05/21 Director Of Securities And Real Estate Relationship Specialty Start Date End Date Marcelino Albert MD [address] [facility] [place] [address] PCP - General Family Medicine 04/05/21 Director Of Securities And Real Estate Relationship Specialty Start Date End Date Marcelino Albert MD [address] [facility] [place] [address] PCP - General Family Medicine 04/05/21 Director Of Securities And Real Estate Relationship Specialty Start Date End Date Marcelino Albert MD [address] [place] [address] PCP - General Family Medicine 04/05/21 Director Of Securities And Real Estate Relationship Specialty Start Date End Date Marcelino Albert MD [address] [place] [address] PCP - General Family Medicine 04/05/21 Director Of Securities And Real Estate Relationship Specialty Start Date End Date Marcelino Albert MD [address] [place] [address] PCP - General Family Medicine 04/05/21 Director Of Securities And Real Estate Relationship Specialty Start Date End Date Marcelino Albert MD [address] [place] [address] PCP - General Family Medicine 04/05/21 08/13/22 Team Status: Active Member Role Status Dates Dr. Marcelino Albert MD Family Provider Active CHAZ Hamilton Primary Care Provider Active Team Status: Inactive Member Role Status Dates Dr. Mor Painter MD Attending Provider, Emergency Provi ashley Active [facility]AZ Hamilton Primary Care Provider Active Team Status: Inactive Member Role Status Dates [facility] Hamilton Primary Care Provider Active Dr. Fernando Cassidy MD Attending Provider, Emergency Provider Active Team Status: Inactive Member Role Status Dates CHAZ Hamilton Primary Care Provider Active Stefano Hood MD Emergency Provider Active Director Of Securities And Real Estate Relationship Specialty Start Date End Date Silverio Haley MD [address] [place] [address] PCP - General Internal Medicine 01/07/23 Director Of Securities And Real Estate Relationship Specialty Start Date End Date Silverio Haley MD [address] [place] [address] PCP - General Internal Medicine 01/07/23 Director Of Securities And Real Estate Relationship Specialty Start Date End Date Silverio Haley MD [address] [place] [address] PCP - General Internal Medicine 01/07/23 Director Of Securities And Real Estate Relationship Specialty Start Date End Date Silverio Haley MD [address] [place] [address] PCP - General Internal Medicine 01/07/23 Director Of Securities And Real Estate Relationship Specialty Start Date End Date Silverio Haley MD [address] [place] [address] PCP - General Internal Medicine 01/07/23 Team Status: Inactive Member Role Status Dates CHAZ Hamilton Primary Care Provider Active Stefano Hood MD Attending Provider, Emergency Provid er Active Team Status: Inactive Member Role Status Dates [facility]AZ Hamilton Primary Care Provider Active Dr. Ran Torres , Referring Provider, Emergency P [facility] Active Team Status: Inactive Member Role Status Dates [facility]AZ Hamilton Primary Care Provider Active Dr. Marcelino Rosa , DO Emergency Provider Active Director Of Securities And Real Estate Relationship Specialty Start Date End Date Silverio Haley MD [address] [place] [address] PCP - General Internal Medicine 01/07/23 Director Of Securities And Real Estate Relationship Specialty Start Date End Date Silverio Haley MD [address] [place] [address] PCP - General Internal Medicine 01/07/23 Director Of Securities And Real Estate Relationship Specialty Start Date End Date Silverio Haley MD [address] [place] [address] PCP - General Internal Medicine 01/07/23 Director Of Securities And Real Estate Relationship Specialty Start Date End Date Silverio Haley MD [address] [place] [address] PCP - General Internal Medicine 01/07/23 Director Of Securities And Real Estate Relationship Specialty Start Date End Date Silverio Haley MD [address] [place] [address] PCP - General Internal Medicine 01/07/23 Director Of Securities And Real Estate Relationship Specialty Start Date End Date Silverio Haley MD [address] [place] [address] PCP - General Internal Medicine 01/07/23 Director Of Securities And Real Estate Relationship Specialty Start Date End Date Silverio Haley MD [address] [place] [address] PCP - General Internal Medicine 01/07/23 Director Of Securities And Real Estate Relationship Specialty Start Date End Date Marcelino Albert MD [address] [facility] [address] [facility] [address] [place] [address] PCP - General 10/10/16 Director Of Securities And Real Estate Relationship Specialty Start Date End Date Silverio Haley MD [address] [place] [address] PCP - General Internal Medicine 01/07/23 Team Status: Active Member Role Status Dates Dr. Marcelino Albert MD Family Provider Active Dr. Silverio Haley MD Primary Care Provider Active Team Status: Inactive Member Role Status Dates [facility] Hamilton Primary Care Provider Active Dr. Ran Torres DO Attending Provide r, Referring Provider, Emergency Provider Active Team Status: Inactive Member Role Status Dates [facility] aHmilton Primary Care Provider Active Dr. Marcelino Rosa DO Attending Provider, Emergency Pro vider Active Team Status: Inactive Member Role Status Dates Dr. Silverio Haley MD Primary Care Provider Active Dr. Eleanor Borjas MD Emergency Provider Active Director Of Securities And Real Estate Relationship Specialty Start Date End Date Silverio Haley MD [address] [place] [address] PCP - General Internal Medicine 01/07/23 Director Of Securities And Real Estate Relationship Specialty Start Date End Date Silverio Haley MD [address] [place] [address] PCP - General Internal Medicine 01/07/23 Team Status: Inactive Member Role Status Dates Dr. Silverio Haley MD Primary Care Provider Active Dr. Eleanor Borjas MD Attending Provider, Emergency Provider Active Team Status: Inactive Member Role Status Dates Dr. Silverio Haley MD Primary Care Provider Active Dr. Vikram Dominguez DO Emergency Provider Active Director Of Securities And Real Estate Relationship Specialty Start Date End Date Marcelino Albert MD [address] [facility] [address] [place] [address] PCP - General 10/10/16 Director Of Securities And Real Estate Relationship Specialty Start Date End Date Silverio Haley MD [address] [place] [address] PCP - General Internal Medicine 01/07/23 Director Of Securities And Real Estate Relationship Specialty Start Date End Date Silverio Haley MD [address] [place] [address] PCP - General Internal Medicine 01/07/23 Director Of Securities And Real Estate Relationship Specialty Start Date End Date Silverio Haley MD [address] [place] [address] PCP - General Internal Medicine 01/07/23 Director Of Securities And Real Estate Relationship Specialty Start Date End Date Silverio Haley MD [address] [place], [place] [address] PCP - General Internal Medicine 01/07/23 Team Status: Inactive Member Role Status Dates Dr. Silverio Haley MD Primary Care Provider Active Dr. Vikram Dominguez DO Attending Provider, Emergency Provider Active Team Status: Inactive Member Role Status Dates Dr. Silverio Haley MD Primary Care Provider Active Dr. Grzegorz Roper MD Emergency Provider Active Director Of Securities And Real Estate Relationship Specialty Start Date End Date Marcelino Albert MD [address] [facility] [address] [place] [address] PCP - General 10/10/16 Team Status: Inactive Member Role Status Dates Dr. Silverio Haley MD Primary Care Provider Active Dr. Grzegorz Roper MD Attending Provider, Emergency Pro vider Active Team Status: Inactive Member Role Status Dates Dr. Silverio Haley MD Primary Care Provider Active Dr. Vasiliy Mcdermott DO Emergency Provider Active Director Of Securities And Real Estate Relationship Specialty Start Date End Date Silverio Haley MD [address] [place] [address] PCP - General Internal Medicine 01/07/23 Director Of Securities And Real Estate Relationship Specialty Start Date End Date Silverio Haley MD [address] [place] [address] PCP - General Internal Medicine 01/07/23 Director Of Securities And Real Estate Relationship Specialty Start Date End Date Silverio Haley MD [address] [place] [address] PCP - General Internal Medicine 01/07/23 Team Status: Inactive Member Role Status Dates Dr. Silverio Haley MD Primary Care Provider Active Dr. Vasiliy Mcdermott DO Attending Provider, Emergency Pro vider Active Team Status: Inactive Member Role Status Dates Dr. Silverio Haley MD Primary Care Provider Active Dr. Ran Torres DO Emergency Provider Active Director Of Securities And Real Estate Relationship Specialty Start Date End Date Silverio Haley MD [address] [facility] [place] [address] PCP - General Internal Medicine 01/07/23 Team Status: Inactive Member Role Status Dates Dr. Silverio Haley MD Primary Care Provider Active Dr. Fernando Cassidy MD Emergency Provider Active Team Status: Inactive Member Role Status Dates Dr. Silverio Haley MD Primary Care Provider Active Dr. Ran Torres , DO Attending Provider, Emergency P rigoberto Active Team Status: Inactive Member Role Status Dates Dr. Silverio Haley MD Primary Care Provider Active Dr. Fernando Cassidy MD Attending Provider, Emergency Provider Active Team Status: Active Member Role Status Dates Dr. Silverio Haley MD Primary Care Provider Active Dr. Ryan Garcia , DO Emergency Provider Active Dr. oJnh Geiger , DO Admit Provider, Attending Provider Active Team Status: Active Member Role Status Dates Dr. Silverio Haley MD Primary Care Provider Active Dr. Ryan Garcia , DO Emergency Provider Active Dr. Jonh Geiger , DO Admit Provider, Other Pro vider Active Dr. Blue Rose , DO Attending Provider, Other Prov ider Active Dr. Eduar Gurrola , DO Other Provider Active Team Status: Inactive Member Role Status Dates Dr. Silverio Haley MD Primary Care Provider Active Dr. Ryan Garcia , DO Emergency Provider Active Dr. Jonh Geiger , DO Admit Provider, Other Pro vider Active Dr. Blue Rose , DO Other Provider Active Dr. Eduar Gurrola , DO Attending Provider Active Team Status: Active Member Role Status Dates Dr. Silverio Haley MD Primary Care Provider Active Dr. Ryan Garcia , DO Emergency Provider Active Dr. Jonh Geiger , DO Admit Provider, Other Pro vider Active Dr. Blue Rose , DO Other Provider Active Dr. Eduar Gurrola , DO Attending Provider, Other Pro vider Active Director Of Securities And Real Estate Relationship Specialty Start Date End Date Silverio Haley MD [address] [facility] [place] [address] PCP - General Internal Medicine 01/07/23 Director Of Securities And Real Estate Relationship Specialty Start Date End Date Silverio Haley MD [address] [place] [address] PCP - General Internal Medicine 01/07/23 Team Status: Inactive Member Role Status Dates Dr. Silverio Haley MD Primary Care Provider Active Merced Hutchinson POWER HOUSE ENGINEER, POWER HOUSE ENGINEER-C Attending Provider, Referring Pr ovider Active Team Status: Inactive Member Role Status Dates Dr. Silverio Haley MD Primary Care Provider Active Ed Physician Provider Emergency Provider Active Team Status: Inactive Member Role Status Dates Dr. Silverio Haley MD Primary Care Provider Active Stefano Hood MD Emergency Provider Active Director Of Securities And Real Estate Relationship Specialty Start Date End Date Silverio Haley MD [address] [place] [address] PCP - General Internal Medicine 01/07/23 Director Of Securities And Real Estate Relationship Specialty Start Date End Date Silverio Haley MD [address] [place] [address] PCP - General Internal Medicine 01/07/23 Team Status: Inactive Member Role Status Dates Dr. Silverio Haley MD Primary Care Provider, Referr ing Provider Active Dr. Blue Rose DO Attending Provider Active Team Status: Inactive Member Role Status Dates Dr. Silverio Haley MD Primary Care Provider Active Ed Physician Provider Attending Provider, Emergency Pr ovider Active Team Status: Inactive Member Role Status Dates Dr. Silverio Haley MD Primary Care Provider Active Stefano Hood MD Attending Provider, Emergency Provid er Active Team Status: Active Member Role Status Dates Dr. Silverio Haley MD Primary Care Provider Active Dr. Blue Rose DO Attending Provider, Referring Provider Active Team Status: Inactive Member Role Status Dates Dr. Silverio Haley MD Primary Care Provider Active Dr. Mor Painter MD Emergency Provider Active Director Of Securities And Real Estate Relationship Specialty Start Date End Date Silverio Haley MD [address] [place] [address] PCP - General Internal Medicine 01/07/23 Team Status: Inactive Member Role Status Dates Dr. Silverio Haley MD Primary Care Provider Active Dr. Blue Rose DO Attending Provider, Referring Provider Active Director Of Securities And Real Estate Relationship Specialty Start Date End Date Silverio Haley MD [address] [place] [address] PCP - General Internal Medicine 01/07/23 Director Of Securities And Real Estate Relationship Specialty Start Date End Date Silverio Haley MD [address] [place] [address] PCP - General Internal Medicine 01/07/23 Director Of Securities And Real Estate Relationship Specialty Start Date End Date Silverio Haley MD [address] [place] [address] PCP - General Internal Medicine 01/07/23 Director Of Securities And Real Estate Relationship Specialty Start Date End Date Silverio Haley MD [address] [place] [address] PCP - General Internal Medicine 01/07/23 Director Of Securities And Real Estate Relationship Specialty Start Date End Date Silverio Haley MD [address] [place] [address] PCP - General Internal Medicine 01/07/23 Director Of Securities And Real Estate Relationship Specialty Start Date End Date Silverio Haley MD [address] [place] [address] PCP - General Internal Medicine 01/07/23 Director Of Securities And Real Estate Relationship Specialty Start Date End Date Silverio Haley MD [address] [place] [address] PCP - General Internal Medicine 01/07/23 Director Of Securities And Real Estate Relationship Specialty Start Date End Date Silverio Haley MD [address] [facility] [place] [address] PCP - General Internal Medicine 01/07/23 Director Of Securities And Real Estate Relationship Specialty Start Date End Date Marcelino Albert MD [address] [facility] [place] [address] PCP - General Family Medicine 04/05/21 08/13/22 Director Of Securities And Real Estate Relationship Specialty Start Date End Date Silverio Haley MD [address] [facility] [place] [address] PCP - General Internal Medicine 01/07/23 Director Of Securities And Real Estate Relationship Specialty Start Date End Date Marcelino Albert MD [address] [facility] [place] [address] PCP - General Family Medicine 04/05/21 08/13/22 Director Of Securities And Real Estate Relationship Specialty Start Date End Date Silverio Haley MD [address] [facility] [place] [address] PCP - General Internal Medicine 01/07/23 Director Of Securities And Real Estate Relationship Specialty Start Date End Date Silverio Haley MD [address] [facility] [place] [address] PCP - General Internal Medicine 01/07/23 Director Of Securities And Real Estate Relationship Specialty Start Date End Date Silverio Haley MD [address] [facility] [place] [address] PCP - General Internal Medicine 01/07/23 Director Of Securities And Real Estate Relationship Specialty Start Date End Date Silverio Haley MD [address] [facility] [facility] [place] [address] PCP - General Internal Medicine 01/07/23 Director Of Securities And Real Estate Relationship Specialty Start Date End Date Marcelino Albert MD [address] [facility] [place] [address] PCP - General Family Medicine 03/31/16 03/31/21 Marcelino Albert MD [address] [facility] [place] [address] Referring Family Medicine 05/06/17 03/31/21 Director Of Securities And Real Estate Relationship Specialty Start Date End Date Marcelino Albert MD [address] [place] [address] PCP - General Family Medicine 03/31/16 03/31/21 Marcelino Albert MD [address] [facility] [place] [address] Referring Family Medicine 05/06/17 03/31/21 Director Of Securities And Real Estate Relationship Specialty Start Date End Date Silverio Haley MD [address] [place] [address] PCP - General Internal Medicine 01/07/23 Director Of Securities And Real Estate Relationship Specialty Start Date End Date Silverio Haley MD [address] [facility] [place] [address] PCP - General Internal Medicine 01/07/23 Director Of Securities And Real Estate Relationship Specialty Start Date End Date Silverio Haley MD [address] [place] [address] PCP - General Internal Medicine 01/07/23 Director Of Securities And Real Estate Relationship Specialty Start Date End Date Silverio Haley MD [address] [place] [address] PCP - General Internal Medicine 01/07/23 Director Of Securities And Real Estate Relationship Specialty Start Date End Date Silverio Haley MD [address] [place] [address] PCP - General Internal Medicine 01/07/23 Gretchen Newton, CAR ATTENDANT.ORE WASHER [address] [place] [address] Executive Assistant To President Internal Medicine 08/22/24 Merced Hutchinson CAR ATTENDANT.CLASSROOM TEACHER [address] [place] [address] Executive Assistant To President Internal Medicine 08/22/24 Director Of Securities And Real Estate Relationship Specialty Start Date End Date Silverio Haley MD [address] [place] [address] PCP - General Internal Medicine 01/07/23 Gretchen Newton, CAR ATTENDANT.ORE WASHER [address] [place] [address] Executive Assistant To President Internal Medicine 08/22/24 Merced Hutchinson CAR ATTENDANT.CLASSROOM TEACHER [address] [place] [address] [facility] Internal Medicine 08/22/24 Director Of Securities And Real Estate Relationship Specialty Start Date End Date Silverio Haley MD [address] [place] [address] PCP - General Internal Medicine 01/07/23 Gretchen Newton, CAR ATTENDANT.ORE WASHER [address] [place] [address] Executive Assistant To President Internal Medicine 08/22/24 Merced Hutchinson CAR ATTENDANT.CLASSROOM TEACHER [address] [place] [address] Executive Assistant To President Internal Medicine 08/22/24 Director Of Securities And Real Estate Relationship Specialty Start Date End Date Silverio Haley MD [address] [place] [address] PCP - General Internal Medicine 01/07/23 Gretchen Newton, CAR ATTENDANT.ORE WASHER [address] [place] [address] Executive Assistant To President Internal Medicine 08/22/24 Merced Hutchinson CAR ATTENDANT.CLASSROOM TEACHER [address] [place] [address] Executive Assistant To President Internal Medicine 08/22/24 Director Of Securities And Real Estate Relationship Specialty Start Date End Date Silverio Haley MD [address] [place] [address] PCP - General Internal Medicine 01/07/23 Gretchen Newton, CAR ATTENDANT.ORE WASHER [address] [place] [address] Executive Assistant To President Internal Medicine 08/22/24 Merced Hutchinson APRN.CLASSROOM TEACHER [address] [place] [address] Executive Assistant To President Internal Medicine 08/22/24 Director Of Securities And Real Estate Relationship Specialty Start Date End Date Silverio Haley MD [address] [place] [address] PCP - General Internal Medicine 01/07/23 Gretchen Newton, ASHLYN.ORE WASHER [address] [place] [address] Executive Assistant To President Internal Medicine 08/22/24 Merced Hutchinson APRN.CLASSROOM TEACHER [address] [place] [address] Executive Assistant To President Internal Medicine 08/22/24 Director Of Securities And Real Estate Relationship Specialty Start Date End Date Silverio Haley MD [address] [place] [address] PCP - General Internal Medicine 01/07/23 Gretchen Newton APRN.ORE WASHER [address] [place] [address] Executive Assistant To President Internal Medicine 08/22/24 Merced Hutchinson APRN.CLASSROOM TEACHER [facility] [place] [address] Executive Assistant To President Internal Medicine 08/22/24 Director Of Securities And Real Estate Relationship Specialty Start Date End Date Silverio Haley MD [address] [place] [address] PCP - General Internal Medicine 01/07/23 Gretchen Newton APRN.ORE WASHER [address] [place] [address] Executive Assistant To President Internal Medicine 08/22/24 Merced Hutchinson APRN.CLASSROOM TEACHER [address] [place] [address] Executive Assistant To President Internal Medicine 08/22/24 Director Of Securities And Real Estate Relationship Specialty Start Date End Date Silverio Haley MD [address] [place] [address] PCP - General Internal Medicine 01/07/23 Gretchen Newton, CAR ATTENDANT.ORE WASHER [address] [place] [address] Executive Assistant To President Internal Medicine 08/22/24 Merced Hutchinson CAR ATTENDANT.CLASSROOM TEACHER [address] [place] [address] [facility] Internal Medicine 08/22/24 Director Of Securities And Real Estate Relationship Specialty Start Date End Date Silverio Haley MD [address] [place] [address] PCP - General Internal Medicine 01/07/23 Gretchen Newton, CAR ATTENDANT.ORE WASHER [address] [place] [address] [facility] Internal Medicine 08/22/24 Merced Hutchinson CAR ATTENDANT.CLASSROOM TEACHER [address] [place] [address] [facility] Internal Medicine 08/22/24 Director Of Securities And Real Estate Relationship Specialty Start Date End Date Silverio Haley MD [address] [place] [address] PCP - General Internal Medicine 01/07/23 Gretchen Newton, CAR ATTENDANT.ORE WASHER [address] [place] [address] [facility] Internal Medicine 08/22/24 Merced Hutchinson CAR ATTENDANT.CLASSROOM TEACHER [address] [facility] [place] [place] [address] [facility] Internal Medicine 08/22/24 Director Of Securities And Real Estate Relationship Specialty Start Date End Date Silverio Haley MD [address] [facility] [place] [address] PCP - General Internal Medicine 01/07/23 Gretchen Newton, CAR ATTENDANT.ORE WASHER [address] [facility] [place] [address] [facility] Internal Medicine 08/22/24 Merecd Hutchinson CAR ATTENDANT.CLASSROOM TEACHER [address] [facility] [place] [address] [facility] Internal Medicine 08/22/24 Director Of Securities And Real Estate Relationship Specialty Start Date End Date Silverio Haley MD [address] [facility] [place] [address] PCP - General Internal Medicine 01/07/23 Gretchen Newton, CAR ATTENDANT.ORE WASHER [address] [facility] [place] [address] [facility] Internal Medicine 08/22/24 Merced Hutchinson CAR ATTENDANT.CLASSROOM TEACHER [address] [facility] [place] [address] [facility] Internal Medicine 08/22/24 Director Of Securities And Real Estate Relationship Specialty Start Date End Date Silverio Haley MD [address] [facility] [place] [address] PCP - General Internal Medicine 01/07/23 Gretchen Newton, CAR ATTENDANT.ORE WASHER [address] [place] [address] [facility] Internal Medicine 08/22/24 Merced Hutchinson, CAR ATTENDANT.CLASSROOM TEACHER [address] [facility] [place] [address] [facility] Internal Medicine 08/22/24 Team Status: Active Member Role Status Dates Dr. Silverio Haley MD Primary Care Provider Active Team Status: Inactive Member Role Status Dates Dr. Silverio Haley MD Primary Care Provider Active Start: August 21, 2024 End: August 21, 2024 Dr. Mac Whitmore DO Attending Provider Active Start: August 21, 2024 End: August 21, 2024 Dr. Mac Whitmore DO Emergency Provider Active Start: August 21, 2024 End: August 21, 2024 Team Status: Inactive Member Role Status Dates Dr. Silverio Haley MD Primary Care Provider Active Start: October 04, 2024 End: October 04, 2024 Dr. Chance Botello DO Attending Provider Active Start: October 04, 2024 End: October 04, 2024 Dr. Chance Botello DO Emergency Provider Active Start: October 04, 2024 End: October 04, 2024 Team Status: Inactive Member Role Status Dates Dr. Silverio Haley MD Primary Care Provider Active Start: November 17, 2024 End: November 17, 2024 Dr. Chance Botello DO Referring Provider Active Start: November 17, 2024 End: November 17, 2024 Dr. Chance Botello DO Emergency Provider Active Start: November 17, 2024 End: November 17, 2024 Team Status: Inactive Member Role Status Dates Dr. Silverio Haley MD Primary Care Provider Active Start: November 22, 2024 End: November 22, 2024 Ed Physician Provider Emergency Provider Active Start: November 22, 2024 End: November 22, 2024 Director Of Securities And Real Estate Relationship Specialty Start Date End Date Marcelino Albert MD [address] [facility] [address] [facility] [address] [place] [address] PCP - General 10/10/16 Director Of Securities And Real Estate Relationship Specialty Start Date End Date Marcelino Albert MD [address] [facility] [address] [place] [address] PCP - General 10/10/16 Director Of Securities And Real Estate Relationship Specialty Start Date End Date Silverio Haley MD [address] [place], [place] [address] PCP - General Internal Medicine 01/07/23 Gretchen Newton, CAR ATTENDANT.ORE WASHER [address] [place] [address] Executive Assistant To President Internal Medicine 08/22/24 Merced Hutchinson CAR ATTENDANT.CLASSROOM TEACHER [address] [place] [address] Executive Assistant To President Internal Medicine 12/06/24 Director Of Securities And Real Estate Relationship Specialty Start Date End Date Silverio Haley [address] [place] [address] PCP - General Internal Medicine 12/15/24 Director Of Securities And Real Estate Relationship Specialty Start Date End Date Silverio Haley [address] [place] [address] PCP - General Internal Medicine 12/15/24 Director Of Securities And Real Estate Relationship Specialty Start Date End Date Silverio Haley MD [address] [place], [place] [address] PCP - General Internal Medicine 01/07/23 Gretchen Newton, CAR ATTENDANT.ORE WASHER [address] [place] [address] Executive Assistant To President Internal Medicine 08/22/24 Merced Hutchinson APRN.CNP [address] [place] [address] Executive Assistant To President Internal Medicine 12/06/24 Director Of Securities And Real Estate Relationship Specialty Start Date End Date Silverio Haley [address] [place] [address] PCP - General Internal Medicine 12/15/24 Director Of Securities And Real Estate Relationship Specialty Start Date End Date Silverio Haley [address] [place] [address] PCP - General Internal Medicine 12/15/24 Director Of Securities And Real Estate Relationship Specialty Start Date End Date Silverio Haley [address] [place] [address] PCP - General Internal Medicine 12/15/24 Director Of Securities And Real Estate Relationship Specialty Start Date End Date Silverio Haley [address] [place] [address] PCP - General Internal Medicine 12/15/24 Director Of Securities And Real Estate Relationship Specialty Start Date End Date Silverio Haley [address] [place] [address] PCP - General Internal Medicine 12/15/24 Director Of Securities And Real Estate Relationship Specialty Start Date End Date Silverio Haley [address] [place] [address] PCP - General Internal Medicine 12/15/24 Director Of Securities And Real Estate Relationship Specialty Start Date End Date Silverio Haley [address] [place] [address] PCP - General Internal Medicine 12/15/24 Director Of Securities And Real Estate Relationship Specialty Start Date End Date Silverio Haley MD [address] [facility] [place] [address] PCP - General Internal Medicine 01/07/23 Gretchen Newton, CAR ATTENDANT.ORE WASHER [address] [facility] [place] [address] Executive Assistant To President Internal Medicine 08/22/24 01/31/25 Merced Hutchinson CAR ATTENDANT.CLASSROOM TEACHER [address] [facility] [address] Executive Assistant To President Internal Medicine 12/06/24 Gretchen Newton, CAR ATTENDANT.ORE WASHER [address] [facility] [place] [address] Executive Assistant To President Internal Medicine 02/01/25 Director Of Securities And Real Estate Relationship Specialty Start Date End Date Silverio Haley MD [address] [facility] [place] [address] PCP - General Internal Medicine 01/07/23 Merced Hutchinson, CAR ATTENDANT.CLASSROOM TEACHER [address] [facility] [place] [address] Executive Assistant To President Internal Medicine 12/06/24 Gretchen Newton, CAR ATTENDANT.ORE WASHER [address] [facility] [place] [address] [facility] Internal Medicine 02/01/25 Director Of Securities And Real Estate Relationship Specialty Start Date End Date Silverio Haley [address] [facility] [place] [address] PCP - General Internal Medicine 12/15/24 Director Of Securities And Real Estate Relationship Specialty Start Date End Date Silverio Haley MD [address] [facility] [place] [address] PCP - General Internal Medicine 01/07/23 Merced Hutchinson, CAR ATTENDANT.CLASSROOM TEACHER [address] [facility] [place] [address] Executive Assistant To President Internal Medicine 12/06/24 Gretchen Newton, CAR ATTENDANT.ORE WASHER [address] [facility] [place] [address] Executive Assistant To President Internal Medicine 02/01/25 Director Of Securities And Real Estate Relationship Specialty Start Date End Date Silverio Haley MD [address] [facility] [place] [address] PCP - General Internal Medicine 01/07/23 Merced Hutchinson, CAR ATTENDANT.CLASSROOM TEACHER [address] [facility] [place] [address] Executive Assistant To President Internal Medicine 12/06/24 Gretchen Newton, CAR ATTENDANT.ORE WASHER [address] [facility] [address] Executive Assistant To President Internal Medicine 02/01/25 Director Of Securities And Real Estate Relationship Specialty Start Date End Date Silverio Haley [address] [facility] [place] [address] PCP - General Internal Medicine 12/15/24 Director Of Securities And Real Estate Relationship Specialty Start Date End Date Silverio Haley [address] [facility] [place] [address] PCP - General Internal Medicine 12/15/24 Director Of Securities And Real Estate Relationship Specialty Start Date End Date Silverio Haley MD [address] [place] [address] PCP - General Internal Medicine 01/07/23 Merced Hutchinson, CAR ATTENDANT.CLASSROOM TEACHER [address] [place], [place] [address] Executive Assistant To President Internal Medicine 12/06/24 Gretchen Newton APRN.ORE WASHER [address] [place], [place] [address] Executive Assistant To President Internal Medicine 02/01/25 Reason for Visit (unrecogniz ed section and content) Reason Comments Abdominal Pain patient was a transf er from [facility] for abd pain and was told that her abd mass that has grown in size and that she needed to be sent to [facility] for evaulation.Patient is alert and oriented x3. Reason Comments Abdominal Pain Reason Comments Hospital F/U Reason Onset Date Comments Transition Of Care 05/06/2022 05/02/[address], [place] x3 days Reason Comments Telemedicine Reason Comments Appointment Reason Comments Covid19 Concern Information Reason Comments Fatigue Reason Comments Results Reason Comments Opened In Error Reason Comments Results Vit D results Reason Comments Cough Cough and congestion x 3 weeks Reason Comments Telemedicine Reason Comments cough perisiting/tightness in chest Reason Comments Medication Question Reason Comments Refill Request Reason Comments Patient Update Reason Comments Mouth/Lip Problem Mouth and jaw pain, teeth issues x 2 days Reason Comments Patient Update Patient Request Reason Comments Green Stool Reason Comments Possible bronchitis Reason Comments Medication Problem Reason Comments LESION, SKIN sore on left breast x 1 week Reason Comments cancellation of future apt Reason Comments ED Follow-up Reason Comments Patient Update Patient Question Reason Comments Establish Care ER F/U had 3 visits to the ER last week due to passing out. Wound Check left breast on going for several months Reason Comments Abdominal Mass Reason Comments Cough Chest congestion, ST , fever x1 day Reason Comments Hospital F/U Reason Comments ER F/U [place] on 03/14/20 and then transferred to [facility] 03/23/23 chronic pancreatitis Medication Problem states since startin g Creon her legs are shaking or constantly moving Reason Onset Date Comments Appointment 03/31/2023 Reason Comments Abdominal Pain Reason Comments Med Refill Reason Comments Patient Question Reason Comments Patient Update Medication Request Reason Comments Appointment Cancelled Reason Onset Date Comments Appointment 05/25/2023 Reason Comments Cough Fever x 6 days Reason Comments Hand Injury right hand and thumb pain after slipping and falling at work on 08/14 Reason Comments Information Reason Comments Nausea & Vomiting Reason Comments Work Excuse Reason Comments Orders Reason Comments Cough Cough and ST x 2 wee ks Reason Comments ED Follow-up [facility] ED follow up 12/13 12/05 for stomach pain Reason Comments Future Appointment Reason Comments ER F/U Reason Comments Ear Problem R ear pain, popping, x 2 days Reason Comments Nasal Congestion Sinus congestion marcela n and pressure x2 weeks, cough, chest congestion x1 week Reason Comments Patient Request Reason Onset Date Comments Refill Request 05/04/2024 Reason Comments Medication Request Reason Comments Headache Reason Comments Medication Dosage Adjustment increased d pokagon Reason Comments Established Patient X 3 weeks left low l eg pain and swelling with symptoms worse at night Reason Comments Cough Reason Comments URI Reason Comments Cough acute bronchitis Reason Onset Date Comments Refill Request 06/28/2024 Reason Comments Cough Chills No fever Reason Comments Headache Cough Reason Onset Date Comments Refill Request 07/28/2024 Reason Comments Cough Persistent coughing x 1 month Reason Comments Cough Congestion x 1 month Reason Comments ED Follow-up [facility] follow up 09/24/2024 for left flank pain Reason Comments Cough Sore throat, AL x 2 weeks Reason Comments Cough congestion, nasal dr baljit, sore throat and fever seen on 10/13 worse Specialty Diagnoses / Procedures Referred By Alma hollis Referred To Contact Internal Medicine / [facility] Diagnoses cough and sore throat Procedures EST SAME DAY [facility] [address] [place] [address] Referral ID Status Reason Start Date Expiration Date Visits Requested Visits Authorized [id number] Pending Review Financial Clearance Required - Self Pay 10/17/2024 01/15/2025 1 1 Reason Comments Sore Throat On going for about 4 weeks.Has been seen in [place] x2. Negative for strep.Started on doxycycline and after first dose she started itching. Cough dry non-productive c ough Reason Comments Mouth/Lip Problem Pain in mouth throat and tongue, thick covered sore tongue, x 2 days Reason Comments Patient Question Reason Comments Left leg pain Specialty Diagnoses / Procedures Referred By Contac t Referred To Contact Internal Medicine / [facility] Diagnoses left leg shaking and weakness, no injury -see 11/16/24 phone note Procedures 4C EST Self Robbin Hernandez MD [address] [place] [address] Phone: tel: fax: Referral ID Status Reason Start Date Expiration Date Visits Requested Visits Authorized [id number] Pending Review Financial Clearance Required - Self Pay 11/17/2024 02/15/2025 1 1 Reason Comments Knee Pain right knee has been ongoing for years but worse in the last few days. Has locked up and caused her to fall Been treating with tylenol but that doesn't helpAt one time was told had arthritis in the joint Specialty Diagnoses / Procedures Referred By Contac t Referred To Contact Internal Medicine / [facility] Diagnoses Right Knee Pain Procedures 4C EST Self Merced Hutchinson APRN.CNP [address] [place] [address] Phone: tel: fax: Referral ID Status Reason Start Date Expiration Date Visits Requested Visits Authorized [id number] Pending Review Financial Clearance Required - Self Pay 11/30/2024 02/28/2025 1 1 Reason Onset Date Comments Abdominal Pain 12/12/2024 Pelvic Pain 12/12/2024 Reason Comments Abdominal Pain Nausea Pt arrives from home for nausea and abdominal pain over the last few days. Pt states she called her PCP and was told to come to ER . Pt endorses fever, chills at home, pain 9/10 in triage Reason Comments Vaginal Bleeding Reason Onset Date Comments Abdominal Pain 12/14/2024 Reason Comments Abdominal Pain Pt reports abd pain with nausea for the past 4 days, reports she went to the restroom and noticed blood in her underwear, she reports a hx of a total hysterectomy Reason Onset Date Comments Appointment 12/15/2024 ED FU Reason Comments Discussion Would like to talk a bout disability and a handicap placard Specialty Diagnoses / Procedures Referred By Contac t Referred To Contact Internal Medicine / INTERNAL MEDICINE Diagnoses knee pain/disability Procedures 4C EST Self Silverio Haley MD [address] [facility] [place] [address] Phone: tel: fax: Referral ID Status Reason Start Date Expiration Date V isits Requested Visits Authorized [id number] Closed Financial Clearance Required - Self Pay 12/07/2024 03/07/2025 1 1 Reason Comments Abdominal Pain Vaginal Discharge Reason Onset Date Comments Abdominal Pain 12/19/2024 Nausea 12/19/2024 Reason Onset Date Comments Abdominal Pain 12/20/2024 Reason Comments New Patient Re-establishing care , ED follow up 3 recent ED visits for chronic lower abdominal pain and spotting CT and US completedHysterectomy BSO in 2006 for suspected endometriosisNo longer on oral estrogen- having hot flashes Reason Comments Abdominal Pain Pt comes in due to h aving increased abd pain pt states she has been seen here a few times for this issue and states its not getting better. Pt is alert and oriented states the pain is lower almost into the pelvis. Reason Comments Follow-up ED follow upED visit 12/27 for chronic pelvic painHysterectomy BSO in 2006 for suspected endometriosis Restarted oral estrogen for HRTPercocet not helping with pain Reason Onset Date Comments Other 12/27/2024 Patient states s he was told to go to the ER and she wants Dr. Story to know that she is there for abdominal pain. Appointment 12/27/2024 See triage 04.15 . Reason Comments Pelvic Pain Pt presents to ED fo r pelvic pain and vaginal discharge. Pt reports pelvic pain has been ongoing since December. Vaginal discharge started two weeks ago. Pt reports vaginal discharge is white with a small amount of blood noted. Reason Comments Abdominal Pain started on Thursday slimy foul smelling dischargedenies any recent intercourse Specialty Diagnoses / Procedures Referred By Alma t Referred To Contact Diagnoses Anything Medically Necessary Procedures Anything Medically Necessary [place] [facility] [place] [address] Referral ID Status Reason Start Date Expiration Date Visits Requested Visits Authorized [id number] Authorized Patient Cleared - Qualified HCAP/FA Referred for [place] 12/09/2024 03/09/2025 99 99 Reason Onset Date Comments Vaginal Discharge 02/24/2025 Pelvic Pain 02/24/2025 Reason Comments Continued symptoms urinary problem and vaginal problem Reason Onset Date Comments Pelvic Pain 02/28/2025 Vaginal Discharge 02/28/2025 Reason Onset Date Comments Other 03/02/[address] 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's Nurse Goals (unrecognized section and content) Goals may be documented in a n alternate section Source Comments (unrecognize d section and content) In the event this informatio n is protected by the Federal Confidentiality of Alcohol and Drug Abuse Patient Records regulations: The Federal rules restrict any use of the information to criminally investigate or prosecute any alcohol or drug abuse patient.[facility] the event this information is protected by the Federal Confidentiality of Alcohol and Drug Abuse Patient Records regulations: The Federal rules restrict any use of the information to criminally investigate or prosecute any alcohol or drug abuse patient.[facility] the event this information is protected by the Federal Confidentiality of Alcohol and Drug Abuse Patient Records regulations: The Federal rules restrict any use of the information to criminally investigate or prosecute any alcohol or drug abuse patient.[facility] HospitalIn the event this information is protected by the Federal Confidentiality of Alcohol and Drug Abuse Patient Records regulations: The Federal rules restrict any use of the information to criminally investigate or prosecute any alcohol or drug abuse patient.[facility]In the event this information is protected by the Federal Confidentiality of Alcohol and Drug Abuse Patient Records regulations: The Federal rules restrict any use of the information to criminally investigate or prosecute any alcohol or drug abuse patient.[facility] HospitalIn the event this information is protected by the Federal Confidentiality of Alcohol and Drug Abuse Patient Records regulations: The Federal rules restrict any use of the information to criminally investigate or prosecute any alcohol or drug abuse patient.[facility] HospitalIn the event this information is protected by the Federal Confidentiality of Alcohol and Drug Abuse Patient Records regulations: The Federal rules restrict any use of the information to criminally investigate or prosecute any alcohol or drug abuse patient.[facility] HospitalIn the event this information is protected by the Federal Confidentiality of Alcohol and Drug Abuse Patient Records regulations: The Federal rules restrict any use of the information to criminally investigate or prosecute any alcohol or drug abuse patient.[facility] HospitalIn the event this information is protected by the Federal Confidentiality of Alcohol and Drug Abuse Patient Records regulations: The Federal rules restrict any use of the information to criminally investigate or prosecute any alcohol or drug abuse patient.[facility] HospitalIn the event this information is protected by the Federal Confidentiality of Alcohol and Drug Abuse Patient Records regulations: The Federal rules restrict any use of the information to criminally investigate or prosecute any alcohol or drug abuse patient.[facility] HospitalIn the event this information is protected by the Federal Confidentiality of Alcohol and Drug Abuse Patient Records regulations: The Federal rules restrict any use of the information to criminally investigate or prosecute any alcohol or drug abuse patient.[facility] HospitalIn the event this information is protected by the Federal Confidentiality of Alcohol and Drug Abuse Patient Records regulations: The Federal rules restrict any use of the information to criminally investigate or prosecute any alcohol or drug abuse patient.[facility] HospitalIn the event this information is protected by the Federal Confidentiality of Alcohol and Drug Abuse Patient Records regulations: The Federal rules restrict any use of the information to criminally investigate or prosecute any alcohol or drug abuse patient.[facility] HospitalIn the event this information is protected by the Federal Confidentiality of Alcohol and Drug Abuse Patient Records regulations: The Federal rules restrict any use of the information to criminally investigate or prosecute any alcohol or drug abuse patient.[facility] HospitalIn the event this information is protected by the Federal Confidentiality of Alcohol and Drug Abuse Patient Records regulations: The Federal rules restrict any use of the information to criminally investigate or prosecute any alcohol or drug abuse patient.[facility] HospitalIn the event this information is protected by the Federal Confidentiality of Alcohol and Drug Abuse Patient Records regulations: The Federal rules restrict any use of the information to criminally investigate or prosecute any alcohol or drug abuse patient.[facility] HospitalIn the event this information is protected by the Federal Confidentiality of Alcohol and Drug Abuse Patient Records regulations: The Federal rules restrict any use of the information to criminally investigate or prosecute any alcohol or drug abuse patient.[facility] HospitalIn the event this information is protected by the Federal Confidentiality of Alcohol and Drug Abuse Patient Records regulations: The Federal rules restrict any use of the information to criminally investigate or prosecute any alcohol or drug abuse patient.[facility] HospitalIn the event this information is protected by the Federal Confidentiality of Alcohol and Drug Abuse Patient Records regulations: The Federal rules restrict any use of the information to criminally investigate or prosecute any alcohol or drug abuse patient.[facility] HospitalIn the event this information is protected by the Federal Confidentiality of Alcohol and Drug Abuse Patient Records regulations: The Federal rules restrict any use of the information to criminally investigate or prosecute any alcohol or drug abuse patient.[facility] HospitalIn the event this information is protected by the Federal Confidentiality of Alcohol and Drug Abuse Patient Records regulations: The Federal rules restrict any use of the information to criminally investigate or prosecute any alcohol or drug abuse patient.[facility] HospitalIn the event this information is protected by the Federal Confidentiality of Alcohol and Drug Abuse Patient Records regulations: The Federal rules restrict any use of the information to criminally investigate or prosecute any alcohol or drug abuse patient.[facility] HospitalIn the event this information is protected by the Federal Confidentiality of Alcohol and Drug Abuse Patient Records regulations: The Federal rules restrict any use of the information to criminally investigate or prosecute any alcohol or drug abuse patient.[facility] HospitalIn the event this information is protected by the Federal Confidentiality of Alcohol and Drug Abuse Patient Records regulations: The Federal rules restrict any use of the information to criminally investigate or prosecute any alcohol or drug abuse patient.[facility] HospitalIn the event this information is protected by the Federal Confidentiality of Alcohol and Drug Abuse Patient Records regulations: The Federal rules restrict any use of the information to criminally investigate or prosecute any alcohol or drug abuse patient.[facility] HospitalIn the event this information is protected by the Federal Confidentiality of Alcohol and Drug Abuse Patient Records regulations: The Federal rules restrict any use of the information to criminally investigate or prosecute any alcohol or drug abuse patient.[facility] HospitalIn the event this information is protected by the Federal Confidentiality of Alcohol and Drug Abuse Patient Records regulations: The Federal rules restrict any use of the information to criminally investigate or prosecute any alcohol or drug abuse patient.[facility] HospitalIn the event this information is protected by the Federal Confidentiality of Alcohol and Drug Abuse Patient Records regulations: The Federal rules restrict any use of the information to criminally investigate or prosecute any alcohol or drug abuse patient.[facility] HospitalIn the event this information is protected by the Federal Confidentiality of Alcohol and Drug Abuse Patient Records regulations: The Federal rules restrict any use of the information to criminally investigate or prosecute any alcohol or drug abuse patient.[facility] HospitalIn the event this information is protected by the Federal Confidentiality of Alcohol and Drug Abuse Patient Records regulations: The Federal rules restrict any use of the information to criminally investigate or prosecute any alcohol or drug abuse patient.[facility] HospitalIn the event this information is protected by the Federal Confidentiality of Alcohol and Drug Abuse Patient Records regulations: The Federal rules restrict any use of the information to criminally investigate or prosecute any alcohol or drug abuse patient.[facility] HospitalIn the event this information is protected by the Federal Confidentiality of Alcohol and Drug Abuse Patient Records regulations: The Federal rules restrict any use of the information to criminally investigate or prosecute any alcohol or drug abuse patient.[facility] HospitalIn the event this information is protected by the Federal Confidentiality of Alcohol and Drug Abuse Patient Records regulations: The Federal rules restrict any use of the information to criminally investigate or prosecute any alcohol or drug abuse patient.[facility] HospitalIn the event this information is protected by the Federal Confidentiality of Alcohol and Drug Abuse Patient Records regulations: The Federal rules restrict any use of the information to criminally investigate or prosecute any alcohol or drug abuse patient.[facility] HospitalIn the event this information is protected by the Federal Confidentiality of Alcohol and Drug Abuse Patient Records regulations: The Federal rules restrict any use of the information to criminally investigate or prosecute any alcohol or drug abuse patient.[facility] HospitalIn the event this information is protected by the Federal Confidentiality of Alcohol and Drug Abuse Patient Records regulations: The Federal rules restrict any use of the information to criminally investigate or prosecute any alcohol or drug abuse patient.[facility] HospitalIn the event this information is protected by the Federal Confidentiality of Alcohol and Drug Abuse Patient Records regulations: The Federal rules restrict any use of the information to criminally investigate or prosecute any alcohol or drug abuse patient.[facility] HospitalIn the event this information is protected by the Federal Confidentiality of Alcohol and Drug Abuse Patient Records regulations: The Federal rules restrict any use of the information to criminally investigate or prosecute any alcohol or drug abuse patient.[facility] HospitalIn the event this information is protected by the Federal Confidentiality of Alcohol and Drug Abuse Patient Records regulations: The Federal rules restrict any use of the information to criminally investigate or prosecute any alcohol or drug abuse patient.[facility] HospitalIn the event this information is protected by the Federal Confidentiality of Alcohol and Drug Abuse Patient Records regulations: The Federal rules restrict any use of the information to criminally investigate or prosecute any alcohol or drug abuse patient.[facility] HospitalIn the event this information is protected by the Federal Confidentiality of Alcohol and Drug Abuse Patient Records regulations: The Federal rules restrict any use of the information to criminally investigate or prosecute any alcohol or drug abuse patient.[facility] HospitalIn the event this information is protected by the Federal Confidentiality of Alcohol and Drug Abuse Patient Records regulations: The Federal rules restrict any use of the information to criminally investigate or prosecute any alcohol or drug abuse patient.[facility] HospitalIn the event this information is protected by the Federal Confidentiality of Alcohol and Drug Abuse Patient Records regulations: The Federal rules restrict any use of the information to criminally investigate or prosecute any alcohol or drug abuse patient.[facility] HospitalIn the event this information is protected by the Federal Confidentiality of Alcohol and Drug Abuse Patient Records regulations: The Federal rules restrict any use of the information to criminally investigate or prosecute any alcohol or drug abuse patient.[facility] HospitalIn the event this information is protected by the Federal Confidentiality of Alcohol and Drug Abuse Patient Records regulations: The Federal rules restrict any use of the information to criminally investigate or prosecute any alcohol or drug abuse patient.[facility] HospitalIn the event this information is protected by the Federal Confidentiality of Alcohol and Drug Abuse Patient Records regulations: The Federal rules restrict any use of the information to criminally investigate or prosecute any alcohol or drug abuse patient.[facility] HospitalIn the event this information is protected by the Federal Confidentiality of Alcohol and Drug Abuse Patient Records regulations: The Federal rules restrict any use of the information to criminally investigate or prosecute any alcohol or drug abuse patient.[facility] HospitalIn the event this information is protected by the Federal Confidentiality of Alcohol and Drug Abuse Patient Records regulations: The Federal rules restrict any use of the information to criminally investigate or prosecute any alcohol or drug abuse patient.[facility] HospitalIn the event this information is protected by the Federal Confidentiality of Alcohol and Drug Abuse Patient Records regulations: The Federal rules restrict any use of the information to criminally investigate or prosecute any alcohol or drug abuse patient.[facility] HospitalIn the event this information is protected by the Federal Confidentiality of Alcohol and Drug Abuse Patient Records regulations: The Federal rules restrict any use of the information to criminally investigate or prosecute any alcohol or drug abuse patient.[facility] HospitalIn the event this information is protected by the Federal Confidentiality of Alcohol and Drug Abuse Patient Records regulations: The Federal rules restrict any use of the information to criminally investigate or prosecute any alcohol or drug abuse patient.[facility] HospitalIn the event this information is protected by the Federal Confidentiality of Alcohol and Drug Abuse Patient Records regulations: The Federal rules restrict any use of the information to criminally investigate or prosecute any alcohol or drug abuse patient.[facility] HospitalIn the event this information is protected by the Federal Confidentiality of Alcohol and Drug Abuse Patient Records regulations: The Federal rules restrict any use of the information to criminally investigate or prosecute any alcohol or drug abuse patient.[facility] HospitalIn the event this information is protected by the Federal Confidentiality of Alcohol and Drug Abuse Patient Records regulations: The Federal rules restrict any use of the information to criminally investigate or prosecute any alcohol or drug abuse patient.[facility] HospitalIn the event this information is protected by the Federal Confidentiality of Alcohol and Drug Abuse Patient Records regulations: The Federal rules restrict any use of the information to criminally investigate or prosecute any alcohol or drug abuse patient.[facility] HospitalIn the event this information is protected by the Federal Confidentiality of Alcohol and Drug Abuse Patient Records regulations: The Federal rules restrict any use of the information to criminally investigate or prosecute any alcohol or drug abuse patient.[facility] HospitalIn the event this information is protected by the Federal Confidentiality of Alcohol and Drug Abuse Patient Records regulations: The Federal rules restrict any use of the information to criminally investigate or prosecute any alcohol or drug abuse patient.[facility] HospitalIn the event this information is protected by the Federal Confidentiality of Alcohol and Drug Abuse Patient Records regulations: The Federal rules restrict any use of the information to criminally investigate or prosecute any alcohol or drug abuse patient.[facility] HospitalIn the event this information is protected by the Federal Confidentiality of Alcohol and Drug Abuse Patient Records regulations: The Federal rules restrict any use of the information to criminally investigate or prosecute any alcohol or drug abuse patient.[facility] HospitalIn the event this information is protected by the Federal Confidentiality of Alcohol and Drug Abuse Patient Records regulations: The Federal rules restrict any use of the information to criminally investigate or prosecute any alcohol or drug abuse patient.[facility] HospitalIn the event this information is protected by the Federal Confidentiality of Alcohol and Drug Abuse Patient Records regulations: The Federal rules restrict any use of the information to criminally investigate or prosecute any alcohol or drug abuse patient.[facility] HospitalIn the event this information is protected by the Federal Confidentiality of Alcohol and Drug Abuse Patient Records regulations: The Federal rules restrict any use of the information to criminally investigate or prosecute any alcohol or drug abuse patient.[facility] HospitalIn the event this information is protected by the Federal Confidentiality of Alcohol and Drug Abuse Patient Records regulations: The Federal rules restrict any use of the information to criminally investigate or prosecute any alcohol or drug abuse patient.[facility] HospitalIn the event this information is protected by the Federal Confidentiality of Alcohol and Drug Abuse Patient Records regulations: The Federal rules restrict any use of the information to criminally investigate or prosecute any alcohol or drug abuse patient.[facility] HospitalIn the event this information is protected by the Federal Confidentiality of Alcohol and Drug Abuse Patient Records regulations: The Federal rules restrict any use of the information to criminally investigate or prosecute any alcohol or drug abuse patient.[facility] HospitalIn the event this information is protected by the Federal Confidentiality of Alcohol and Drug Abuse Patient Records regulations: The Federal rules restrict any use of the information to criminally investigate or prosecute any alcohol or drug abuse patient.[facility] HospitalIn the event this information is protected by the Federal Confidentiality of Alcohol and Drug Abuse Patient Records regulations: The Federal rules restrict any use of the information to criminally investigate or prosecute any alcohol or drug abuse patient.[facility] HospitalIn the event this information is protected by the Federal Confidentiality of Alcohol and Drug Abuse Patient Records regulations: The Federal rules restrict any use of the information to criminally investigate or prosecute any alcohol or drug abuse patient.[facility] HospitalIn the event this information is protected by the Federal Confidentiality of Alcohol and Drug Abuse Patient Records regulations: The Federal rules restrict any use of the information to criminally investigate or prosecute any alcohol or drug abuse patient.[facility] HospitalIn the event this information is protected by the Federal Confidentiality of Alcohol and Drug Abuse Patient Records regulations: The Federal rules restrict any use of the information to criminally investigate or prosecute any alcohol or drug abuse patient.[facility] HospitalIn the event this information is protected by the Federal Confidentiality of Alcohol and Drug Abuse Patient Records regulations: The Federal rules restrict any use of the information to criminally investigate or prosecute any alcohol or drug abuse patient.[facility] HospitalIn the event this information is protected by the Federal Confidentiality of Alcohol and Drug Abuse Patient Records regulations: The Federal rules restrict any use of the information to criminally investigate or prosecute any alcohol or drug abuse patient.[facility] HospitalIn the event this information is protected by the Federal Confidentiality of Alcohol and Drug Abuse Patient Records regulations: The Federal rules restrict any use of the information to criminally investigate or prosecute any alcohol or drug abuse patient.[facility] HospitalIn the event this information is protected by the Federal Confidentiality of Alcohol and Drug Abuse Patient Records regulations: The Federal rules restrict any use of the information to criminally investigate or prosecute any alcohol or drug abuse patient.[facility] HospitalIn the event this information is protected by the Federal Confidentiality of Alcohol and Drug Abuse Patient Records regulations: The Federal rules restrict any use of the information to criminally investigate or prosecute any alcohol or drug abuse patient.[facility] HospitalIn the event this information is protected by the Federal Confidentiality of Alcohol and Drug Abuse Patient Records regulations: The Federal rules restrict any use of the information to criminally investigate or prosecute any alcohol or drug abuse patient.[facility]In the event this information is protected by the Federal Confidentiality of Alcohol and Drug Abuse Patient Records regulations: The Federal rules restrict any use of the information to criminally investigate or prosecute any alcohol or drug abuse patient.[facility] HospitalIn the event this information is protected by the Federal Confidentiality of Alcohol and Drug Abuse Patient Records regulations: The Federal rules restrict any use of the information to criminally investigate or prosecute any alcohol or drug abuse patient.[facility] HospitalIn the event this information is protected by the Federal Confidentiality of Alcohol and Drug Abuse Patient Records regulations: The Federal rules restrict any use of the information to criminally investigate or prosecute any alcohol or drug abuse patient.[facility] HospitalIn the event this information is protected by the Federal Confidentiality of Alcohol and Drug Abuse Patient Records regulations: The Federal rules restrict any use of the information to criminally investigate or prosecute any alcohol or drug abuse patient.[facility] HospitalIn the event this information is protected by the Federal Confidentiality of Alcohol and Drug Abuse Patient Records regulations: The Federal rules restrict any use of the information to criminally investigate or prosecute any alcohol or drug abuse patient.[facility] HospitalIn the event this information is protected by the Federal Confidentiality of Alcohol and Drug Abuse Patient Records regulations: The Federal rules restrict any use of the information to criminally investigate or prosecute any alcohol or drug abuse patient.[facility] HospitalIn the event this information is protected by the Federal Confidentiality of Alcohol and Drug Abuse Patient Records regulations: The Federal rules restrict any use of the information to criminally investigate or prosecute any alcohol or drug abuse patient.[facility] HospitalIn the event this information is protected by the Federal Confidentiality of Alcohol and Drug Abuse Patient Records regulations: The Federal rules restrict any use of the information to criminally investigate or prosecute any alcohol or drug abuse patient.[facility] HospitalIn the event this information is protected by the Federal Confidentiality of Alcohol and Drug Abuse Patient Records regulations: The Federal rules restrict any use of the information to criminally investigate or prosecute any alcohol or drug abuse patient.[facility] HospitalIn the event this information is protected by the Federal Confidentiality of Alcohol and Drug Abuse Patient Records regulations: The Federal rules restrict any use of the information to criminally investigate or prosecute any alcohol or drug abuse patient.[facility] HospitalIn the event this information is protected by the Federal Confidentiality of Alcohol and Drug Abuse Patient Records regulations: The Federal rules restrict any use of the information to criminally investigate or prosecute any alcohol or drug abuse patient.[facility] HospitalIn the event this information is protected by the Federal Confidentiality of Alcohol and Drug Abuse Patient Records regulations: The Federal rules restrict any use of the information to criminally investigate or prosecute any alcohol or drug abuse patient.[facility]In the event this information is protected by the Federal Confidentiality of Alcohol and Drug Abuse Patient Records regulations: The Federal rules restrict any use of the information to criminally investigate or prosecute any alcohol or drug abuse patient.[facility] HospitalIn the event this information is protected by the Federal Confidentiality of Alcohol and Drug Abuse Patient Records regulations: The Federal rules restrict any use of the information to criminally investigate or prosecute any alcohol or drug abuse patient.[facility]In the event this information is protected by the Federal Confidentiality of Alcohol and Drug Abuse Patient Records regulations: The Federal rules restrict any use of the information to criminally investigate or prosecute any alcohol or drug abuse patient.[facility] HospitalIn the event this information is protected by the Federal Confidentiality of Alcohol and Drug Abuse Patient Records regulations: The Federal rules restrict any use of the information to criminally investigate or prosecute any alcohol or drug abuse patient.[facility] HospitalIn the event this information is protected by the Federal Confidentiality of Alcohol and Drug Abuse Patient Records regulations: The Federal rules restrict any use of the information to criminally investigate or prosecute any alcohol or drug abuse patient.[facility] HospitalIn the event this information is protected by the Federal Confidentiality of Alcohol and Drug Abuse Patient Records regulations: The Federal rules restrict any use of the information to criminally investigate or prosecute any alcohol or drug abuse patient.[facility] HospitalIn the event this information is protected by the Federal Confidentiality of Alcohol and Drug Abuse Patient Records regulations: The Federal rules restrict any use of the information to criminally investigate or prosecute any alcohol or drug abuse patient.[facility] HospitalIn the event this information is protected by the Federal Confidentiality of Alcohol and Drug Abuse Patient Records regulations: The Federal rules restrict any use of the information to criminally investigate or prosecute any alcohol or drug abuse patient.[facility] HospitalIn the event this information is protected by the Federal Confidentiality of Alcohol and Drug Abuse Patient Records regulations: The Federal rules restrict any use of the information to criminally investigate or prosecute any alcohol or drug abuse patient.[facility] HospitalIn the event this information is protected by the Federal Confidentiality of Alcohol and Drug Abuse Patient Records regulations: The Federal rules restrict any use of the information to criminally investigate or prosecute any alcohol or drug abuse patient.[facility] HospitalIn the event this information is protected by the Federal Confidentiality of Alcohol and Drug Abuse Patient Records regulations: The Federal rules restrict any use of the information to criminally investigate or prosecute any alcohol or drug abuse patient.[facility] HospitalIn the event this information is protected by the Federal Confidentiality of Alcohol and Drug Abuse Patient Records regulations: The Federal rules restrict any use of the information to criminally investigate or prosecute any alcohol or drug abuse patient.[facility] HospitalIn the event this information is protected by the Federal Confidentiality of Alcohol and Drug Abuse Patient Records regulations: The Federal rules restrict any use of the information to criminally investigate or prosecute any alcohol or drug abuse patient.[facility] HospitalIn the event this information is protected by the Federal Confidentiality of Alcohol and Drug Abuse Patient Records regulations: The Federal rules restrict any use of the information to criminally investigate or prosecute any alcohol or drug abuse patient.[facility] HospitalIn the event this information is protected by the Federal Confidentiality of Alcohol and Drug Abuse Patient Records regulations: The Federal rules restrict any use of the information to criminally investigate or prosecute any alcohol or drug abuse patient.[facility] HospitalIn the event this information is protected by the Federal Confidentiality of Alcohol and Drug Abuse Patient Records regulations: The Federal rules restrict any use of the information to criminally investigate or prosecute any alcohol or drug abuse patient.[facility] HospitalIn the event this information is protected by the Federal Confidentiality of Alcohol and Drug Abuse Patient Records regulations: The Federal rules restrict any use of the information to criminally investigate or prosecute any alcohol or drug abuse patient.[facility] HospitalIn the event this information is protected by the Federal Confidentiality of Alcohol and Drug Abuse Patient Records regulations: The Federal rules restrict any use of the information to criminally investigate or prosecute any alcohol or drug abuse patient.[facility] HospitalIn the event this information is protected by the Federal Confidentiality of Alcohol and Drug Abuse Patient Records regulations: The Federal rules restrict any use of the information to criminally investigate or prosecute any alcohol or drug abuse patient.[facility] HospitalIn the event this information is protected by the Federal Confidentiality of Alcohol and Drug Abuse Patient Records regulations: The Federal rules restrict any use of the information to criminally investigate or prosecute any alcohol or drug abuse patient.[facility] HospitalIn the event this information is protected by the Federal Confidentiality of Alcohol and Drug Abuse Patient Records regulations: The Federal rules restrict any use of the information to criminally investigate or prosecute any alcohol or drug abuse patient.[facility] HospitalIn the event this information is protected by the Federal Confidentiality of Alcohol and Drug Abuse Patient Records regulations: The Federal rules restrict any use of the information to criminally investigate or prosecute any alcohol or drug abuse patient.[facility] HospitalIn the event this information is protected by the Federal Confidentiality of Alcohol and Drug Abuse Patient Records regulations: The Federal rules restrict any use of the information to criminally investigate or prosecute any alcohol or drug abuse patient.[facility] HospitalIn the event this information is protected by the Federal Confidentiality of Alcohol and Drug Abuse Patient Records regulations: The Federal rules restrict any use of the information to criminally investigate or prosecute any alcohol or drug abuse patient.[facility] HospitalIn the event this information is protected by the Federal Confidentiality of Alcohol and Drug Abuse Patient Records regulations: The Federal rules restrict any use of the information to criminally investigate or prosecute any alcohol or drug abuse patient.[facility] HospitalIn the event this information is protected by the Federal Confidentiality of Alcohol and Drug Abuse Patient Records regulations: The Federal rules restrict any use of the information to criminally investigate or prosecute any alcohol or drug abuse patient.[facility] HospitalIn the event this information is protected by the Federal Confidentiality of Alcohol and Drug Abuse Patient Records regulations: The Federal rules restrict any use of the information to criminally investigate or prosecute any alcohol or drug abuse patient.[facility] HospitalIn the event this information is protected by the Federal Confidentiality of Alcohol and Drug Abuse Patient Records regulations: The Federal rules restrict any use of the information to criminally investigate or prosecute any alcohol or drug abuse patient.[facility] HospitalIn the event this information is protected by the Federal Confidentiality of Alcohol and Drug Abuse Patient Records regulations: The Federal rules restrict any use of the information to criminally investigate or prosecute any alcohol or drug abuse patient.[facility] HospitalIn the event this information is protected by the Federal Confidentiality of Alcohol and Drug Abuse Patient Records regulations: The Federal rules restrict any use of the information to criminally investigate or prosecute any alcohol or drug abuse patient.[facility] HospitalIn the event this information is protected by the Federal Confidentiality of Alcohol and Drug Abuse Patient Records regulations: The Federal rules restrict any use of the information to criminally investigate or prosecute any alcohol or drug abuse patient.[facility] HospitalIn the event this information is protected by the Federal Confidentiality of Alcohol and Drug Abuse Patient Records regulations: The Federal rules restrict any use of the information to criminally investigate or prosecute any alcohol or drug abuse patient.[facility] HospitalIn the event this information is protected by the Federal Confidentiality of Alcohol and Drug Abuse Patient Records regulations: The Federal rules restrict any use of the information to criminally investigate or prosecute any alcohol or drug abuse patient.[facility] HospitalIn the event this information is protected by the Federal Confidentiality of Alcohol and Drug Abuse Patient Records regulations: The Federal rules restrict any use of the information to criminally investigate or prosecute any alcohol or drug abuse patient.[facility] HospitalIn the event this information is protected by the Federal Confidentiality of Alcohol and Drug Abuse Patient Records regulations: The Federal rules restrict any use of the information to criminally investigate or prosecute any alcohol or drug abuse patient.[facility] Care Team (unrecognized sect ion and content) Care Team Personnel Name: MARCELINO ALBERT MD Member Role: Primary Care Physician Address: Address: [address] [place] [id number]- Name: ANNE BURROWS MD Position: ED Physician Member Role: ED Physician Address: Address: [address] [place] [id number]- Care Team Related Persons Name: PLEASE, ASK Name: HORACE NEVILLE Care Team Personnel Name: MARCELINO ALBERT MD Member Role: Primary Care Physician Address: Address: [address] [place] [address]- Name: KAYLEN CHAVEZ MD Position: Resident Member Role: Resident Address: Address: [address] [place] [id number] Name: KUN ELLIS MD Position: ED Physician Member Role: ED Physician Address: Address: [facility] [address] [place] [id number]- Name: Alejandra Hubbard RN Position: AO RN Member Role: RN Care Team Related Persons Name: PLEASE, ASK Name: HORACE NEVILLE Scheduled Active and Recently Administ ered Medications (unrecognized section and content) Medication Order 12/10/2024 12/11/2024 12/12/2024 morphine injection 4 mg (COMPLETED) 4 mg, IntraVENous, Once, On Thu12/12/24 at 1520, For 1 dose 1539 (Given - Provid er: Abi White, VIN) ondansetron (Zofran) injection 4 mg (COMPLETED) 4 mg, IntraVENous, Once, On Thu12/12/24 at 1520, For 1 dose 1539 (Given - Provid er: Abi White, VIN) oxyCODONE-acetaminophen (Percocet) 5-325 MG per tablet 1 tablet (COMPLETED) 1 tablet, Oral, Once, On Thu12/12/24 at 1650, For 1 dose, Maximum dose of acetaminophen is 4000 mg from all sources in 24 hours. 1729 (Given - Provid er: Abi White RN) sodium chloride 0.9 % bolus 1,000 mL (COMPLETED) 1,000 mL, IntraVENous, at 1,000 mL/hr, Administer over 1 Hours, Once, On Thu12/12/24 at 1520, For 1 dose 1538 (New Bag - Prov ider: Abi White RN)1638 (Stopped - Provider: Abi White RN) Scheduled Medication Order 12/13/2024 12/14/2024 12/15/2024 morphine injection 4 mg (COMPLETED) 4 mg, IntraVENous, Once, On Evelyn 12/15/24 at 0125, For 1 dose, If oral and IV narcotics ordered, use oral first and only use IV if oral is ineffective or cannot take oral. Do Not give oral and IV within 1 hour of each other unless specifically ordered. 0219 (Given - Provid er: Latha Cooper RN) ondansetron (Zofran) injection 4 mg (COMPLETED) 4 mg, IntraVENous, Once, On Evelyn 12/15/24 at 0125, For 1 dose 0216 (Given - Provid er: Latha Cooper RN) Scheduled Medication Order 12/15/2024 12/16/2024 12/17/2024 HYDROmorphone (Dilaudid) injection 1 mg (COMPLETED) 1 mg, IntraVENous, Once, On 12/17/24 at 1230, For 1 dose 1250 (Given - Provid er: Silvia Lofton RN) HYDROmorphone (Dilaudid) injection 1 mg (COMPLETED) 1 mg, IntraVENous, Once, On 12/17/24 at 1405, For 1 dose, If oral and injectable narcotics ordered, use oral first and only use injectable if oral is ineffective or cannot take oral. Do Not give oral and injectable within 1 hour of each other unless specifically ordered. 1405 (Given - Provid er: Silvia Lofton RN) metoclopramide (Reglan) injection 10 mg (COMPLETED) 10 mg, IntraVENous, Once, On 12/17/24 at 1230, For 1 dose 1249 (Given - Provid er: Silvia Lofton RN) sodium chloride 0.9 % bolus 1,000 mL (COMPLETED) 1,000 mL, IntraVENous, at 1,000 mL/hr, Administer over 1 Hours, Once, On Thu12/17/24 at 1230, For 1 dose 1250 (New Bag - Prov ider: Silvia Lofton RN)1350 (Stopped - Provider: Silvia Lofton RN) Scheduled Medication Order 12/25/2024 12/26/2024 12/27/2024 ondansetron ODT (Zofran-ODT) disintegrating tablet 4 mg (COMPLETED) 4 mg, Oral, Once, On Thu12/27/24 at 1540, For 1 dose 1604 (Given - Provid er: Mckenna Cornelius RN) oxyCODONE (Roxicodone) immediate release tablet 5 mg (COMPLETED) 5 mg, Oral, Once, On Thu12/27/24 at 1540, For 1 dose 1604 (Given - Provid er: Mckenna Cornelius RN) Scheduled Medication Order 02/22/2025 02/23/2025 02/24/2025 morphine injection 4 mg (COMPLETED) 4 mg, IntraVENous, Once, On Thu02/24/25 at 1125, For 1 dose, If oral and injectable narcotics ordered, use oral first and only use injectable if oral is ineffective or cannot take oral. Do Not give oral and injectable within 1 hour of each other unless specifically ordered. 1150 (Given - Provid er: Vinay Ferrer, EMT) sulfamethoxazole-trimethoprim (Bactrim DS) 800-160 MG per tablet 1 tablet (COMPLETED) 1 tablet, Oral, Once, On Thu02/24/25 at 1235, For 1 dose, Suspected Indication (Select all that apply): Urinary Tract Infection 1234 (Given - Provid er: Abi Silva LPN) FOR RECORDS PERTAINING TO PATIENTS WHO ARE OR HAVE BEEN ENROLLED IN A CHEMICAL DEPENDENCY/SUBSTANCEABUSE PROGRAM, SOME INFORMATION MAY BE OMITTED. This clinical summary was aggregated from multiple sources. Caution should be exercised in using it in the provision of clinical care. This summary normalizes information from multiple sources, and as a consequence, information in this document may materially change the coding, format and clinical context of patient data. In addition, data may be omitted in some cases. CLINICAL DECISIONS SHOULD BE BASED ON THE PRIMARY CLINICAL RECORDS. [facility]. provides no warranty or guarantee of the accuracy or completeness of information in this document."
--- NOTE | 2025-05-15 12:07 | ED.VIS.DYS ---
HPI History of Present Illness Chief Complaint: Cold Sx Narrative Narrative: Chief complaint and HPI: 44 -year-old female with anxiety, HLD, asthma presents for evaluation of cold-like symptoms. Patient states for the past week she has had nasal congestion, rhinorrhea, sinus pressure, sore throat. Endorses mild cough. Has been using her inhalers. Denies any chest pain, shortness of breath, abdominal pain, nausea, vomiting. Boyfriend has similar symptoms. Review of systems: See HPI Medications: As listed on the chart Allergies: As listed on the chart PFSH: Per chart Vital signs: As listed on the chart. Reviewed. Physical exam: Gen: A&O x3, NAD Head: Normocephalic, atraumatic Eyes: No sclera icterus, conjunctiva clear, PERRL, EOMI ENT: TMs clear BL, moist mucous membranes, posterior oropharynx unremarkable, uvula midline, tonsils not enlarged, no tonsillar exudates, + sinus tenderness, + nasal congestion Neck: Trachea midline, No JVD, Full ROM, No meningismus, no lymphadenopathy CV: RRR, no murmurs, no peripheral edema Resp: Lungs CTA BL, no w/r/c GI: Abd soft, non-distended, non-tender, no r/r/g Musc: Full ROM, no deformity Skin: Warm, dry, no rash Neuro: Alert, oriented, grossly intact, sensation intact [facility] Medical History Cancer Depression Rheumatoid arthritis Arthritis Back pain Difficulty chewing Gastric reflux Chronic cough History of Holter monitoring History of stress test Cardiology follow-up encounter Anxiety Kidney stones Smoker Abdominal pain Intractable nausea and vomiting History of pancreatitis Pancreatitis Bipolar disorder Lung nodule Migraine Chronic pain Ovarian cyst Obesity Incomplete right bundle branch block Hyperlipidemia History of uterine cancer (2006) Right tubo-ovarian mass Ureteral stone with hydronephrosis History of renal calculi Home Medications ?Medication ?Instructions ?Recorded ?Last Taken ?Type gabapentin 400 mg capsule 400 mg PO TID PRN NEUROPATHY 10/03/20 12/02/23 History hyoscyamine sulfate 0.125 mg 0.125 mg PO Q6H PRN abdominal 02/24/24 Unknown Rx disintegrating tablet discomfort #10 tabs diphenhydramine HCl 25 mg capsule 25 mg PO QHS 05/25/24 Unknown History (Allergy (diphenhydramine)) escitalopram oxalate 20 mg tablet 20 mg PO DAILY 05/25/24 Unknown History pantoprazole 40 mg tablet,delayed 40 mg PO DAILY 05/25/24 Unknown History release promethazine 25 mg tablet 25 mg PO Q8H PRN PRN 05/25/24 Unknown History nausea/vomiting cyclobenzaprine 10 mg tablet 10 mg PO TID PRN Muscle Spasm #15 08/21/24 Unknown Rx TABLETS ondansetron 4 mg disintegrating 4 mg PO Q6H PRN nausea and 11/17/24 Unknown Rx tablet vomiting #20 tabs alprazolam 0.5 mg tablet 0.5 mg PO BID #30 tabs 12/05/24 Unknown Rx hyoscyamine sulfate 0.125 mg tablet 0.125 mg PO TID PRN dyspepsia #90 12/05/24 Unknown Rx tabs doxycycline hyclate 100 mg capsule 100 mg PO BID 7 days #14 caps 05/15/25 Unknown Rx Allergy/AdvReac Type Severity Reaction Status Date / Time fentanyl Allergy Severe Shortness Verified 05/15/25 11:07 of breath Iodinated Contrast Media (CT) Allergy Shortness Verified 05/15/25 11:07 of breath ketorolac tromethamine (From Allergy Rash Verified 05/15/25 11:07 Toradol) metronidazole (From Flagyl) Allergy Hives Verified 05/15/25 11:07 Penicillins Allergy Hives Verified 05/15/25 11:07 dicyclomine (From Bentyl) AdvReac Mild Hives Verified 05/15/25 11:07 aspirin AdvReac Upset Verified 05/15/25 11:07 Stomach Family History Aunt Breast cancer Grandfather CAD (coronary artery disease) Father Heart disease, Onset Age: 73 Triple bypass Mother Heart disease, Onset Age: 62 Other Diabetes Surgical History Hx of tooth extraction History of cholecystectomy H/O ovarian cystectomy (09/2019) History of bilateral oophorectomy History of hysterectomy History of tubal ligation Social History household members: none Smoking Status: Current every day smoker tobacco type: cigarettes Tobacco: How many years used: 15 alcohol intake: current substance use type: does not use EXAM Physical Exam Const Vital Signs: 05/15/25 11:06 05/15/25 11:44 Temperature 98.1 F Temperature Source Oral Pulse Rate 77 Respiratory Rate 18 Respiratory Effort Normal Non-Labored Blood Pressure 122/69 H Blood Pressure Mean 86 Pulse Ox 98 Oxygen Delivery Method Room Air MDM MDM MDM Narrative Medical decision making narrative: 44 -year-old female with anxiety, HLD, asthma presents for evaluation of cold-like symptoms. Patient states for the past week she has had nasal congestion, rhinorrhea, sinus pressure, sore throat. Endorses mild cough. Has been using her inhalers. Boyfriend has similar symptoms. On presentation, patient no acute distress. Nontoxic-appearing. Vitals are stable. Afebrile. Physical exam is unremarkable except for nasal congestion and sinus pressure. Her lungs are clear to auscultation bilaterally without any wheezing. Low suspicion for pneumonia. Differential diagnosis includes but is not limited to viral illness, sinusitis, bronchitis. Suspect more sinusitis. Boyfriend diagnosed with same. Patient has allergy to penicillins therefore will place her on a 7-day course of doxycycline. Follow-up with PCP. Recommended OTC medication for symptom relief. Continue inhalers. Return precautions explained. She confirmed understand the plan. Patient able to discharge home Impression: 1. Sinusitis Discharge Plan Triage Chief Complaint: Cold Sx ED Provider: Leonardo Farr Dx/Rx/DC Orders Clinical Impression: Sinusitis Instructions: ED Sinusitis (Antibiotic Treatment) Prescriptions: New doxycycline hyclate 100 mg capsule 100 mg PO BID 7 Days Qty: 14 0RF No Action gabapentin 400 MG capsule 400 mg PO TID PRN (Reason: NEUROPATHY ) Patient Comments: PT STATES THEIR DOCTOR RECENTLY UPPED THE DOSE THAT CAN BE TAKEN diphenhydramine HCl [Allergy (diphenhydramine)] 25 mg capsule 25 mg PO QHS pantoprazole 40 mg tablet,delayed release (DR/EC) 40 mg PO DAILY promethazine 25 mg tablet 25 mg PO Q8H PRN PRN (Reason: nausea/vomiting) escitalopram oxalate 20 mg tablet 20 mg PO DAILY cyclobenzaprine 10 mg tablet 10 mg PO TID PRN (Reason: Muscle Spasm) Qty: 15 0RF hyoscyamine sulfate 0.125 mg tablet,disintegrating 0.125 mg PO Q6H PRN (Reason: abdominal discomfort) Qty: 10 0RF ondansetron 4 mg tablet,disintegrating 4 mg PO Q6H PRN (Reason: nausea and vomiting) Qty: 20 0RF alprazolam 0.5 mg tablet 0.5 mg PO BID Qty: 30 0RF hyoscyamine sulfate 0.125 mg tablet 0.125 mg PO TID PRN (Reason: dyspepsia) Qty: 90 0RF Primary Care Provider: Michell Baca Referrals: Michell Baca MD [Primary Care Provider] - 3-5 Days Activity Restrictions/Additional Instructions: Follow-up with primary care physician. Return back to ED if symptoms change or worsen. Take all of your antibiotics. Mucinex and Sudafed as needed for symptoms. Print Language: Togolese Disposition Disposition: Home, Self Care
--- NOTE | 2025-05-15 12:11 | ED.RN ---
pt leaves prior to dc instructions
== END 2025-05-15 12:12 | disposition home or self-care (01) ==
PROVIDERS: Emergency Provider Surgery; PCP Internal Medicine; Visit Provider Surgery
DX: J32.9 Chronic sinusitis, unspecified (principal); F17.210 Nicotine dependence, cigarettes, uncomplicated
CPT/HCPCS: 99282

== ENCOUNTER 2025-05-27 16:26 | Emergency (ER) | payer SELFPAY ==
[2025-05-27 16:27] VITALS: BP 130/91; PULSE 85; RESP 16; TEMP 36.8; O2SAT 99; BMI 35.4
--- NOTE | 2025-05-27 16:35 | EX.ED.DYSGE1 ---
HPI History of Present Illness Chief Complaint: Headache PFSH PFSH Medical History Cancer Depression Rheumatoid arthritis Arthritis Back pain Difficulty chewing Gastric reflux Chronic cough History of Holter monitoring History of stress test Cardiology follow-up encounter Anxiety Kidney stones Smoker Abdominal pain Intractable nausea and vomiting History of pancreatitis Pancreatitis Bipolar disorder Lung nodule Migraine Chronic pain Ovarian cyst Obesity Incomplete right bundle branch block Hyperlipidemia History of uterine cancer (2006) Right tubo-ovarian mass Ureteral stone with hydronephrosis History of renal calculi Home Medications ?Medication ?Instructions ?Recorded ?Last Taken ?Type gabapentin 400 mg capsule 400 mg PO TID PRN NEUROPATHY 10/03/20 12/02/23 History hyoscyamine sulfate 0.125 mg 0.125 mg PO Q6H PRN abdominal 02/24/24 Unknown Rx disintegrating tablet discomfort #10 tabs diphenhydramine HCl 25 mg capsule 25 mg PO QHS 05/25/24 Unknown History (Allergy (diphenhydramine)) escitalopram oxalate 20 mg tablet 20 mg PO DAILY 05/25/24 Unknown History pantoprazole 40 mg tablet,delayed 40 mg PO DAILY 05/25/24 Unknown History release promethazine 25 mg tablet 25 mg PO Q8H PRN PRN 05/25/24 Unknown History nausea/vomiting cyclobenzaprine 10 mg tablet 10 mg PO TID PRN Muscle Spasm #15 08/21/24 Unknown Rx TABLETS ondansetron 4 mg disintegrating 4 mg PO Q6H PRN nausea and 11/17/24 Unknown Rx tablet vomiting #20 tabs alprazolam 0.5 mg tablet 0.5 mg PO BID #30 tabs 12/05/24 Unknown Rx hyoscyamine sulfate 0.125 mg tablet 0.125 mg PO TID PRN dyspepsia #90 12/05/24 Unknown Rx tabs doxycycline hyclate 100 mg capsule 100 mg PO BID 7 days #14 caps 05/15/25 Unknown Rx Allergy/AdvReac Type Severity Reaction Status Date / Time fentanyl Allergy Severe Shortness Verified 05/27/25 16:27 of breath Iodinated Contrast Media (CT) Allergy Shortness Verified 05/27/25 16:27 of breath ketorolac tromethamine (From Allergy Rash Verified 05/27/25 16:27 Toradol) metronidazole (From Flagyl) Allergy Hives Verified 05/27/25 16:27 Penicillins Allergy Hives Verified 05/27/25 16:27 dicyclomine (From Bentyl) AdvReac Mild Hives Verified 05/27/25 16:27 aspirin AdvReac Upset Verified 05/27/25 16:27 Stomach Family History Aunt Breast cancer Grandfather CAD (coronary artery disease) Father Heart disease, Onset Age: 73 Triple bypass Mother Heart disease, Onset Age: 62 Other Diabetes Surgical History Hx of tooth extraction History of cholecystectomy H/O ovarian cystectomy (09/2019) History of bilateral oophorectomy History of hysterectomy History of tubal ligation Social History household members: none Smoking Status: Current every day smoker tobacco type: cigarettes Tobacco: How many years used: 15 alcohol intake: current substance use type: does not use EXAM Physical Exam Const Vital Signs: 05/27/25 16:27 Temperature 98.3 F Temperature Source Oral Pulse Rate 85 Respiratory Rate 16 Blood Pressure 130/91 H Blood Pressure Mean 104 Pulse Ox 99 Oxygen Delivery Method Room Air MDM MDM MDM Narrative Medical decision making narrative: HISTORY OF PRESENT ILLNESS: Chief complaint: Headache 44-year-old female history of bipolar disorder, kidney stones, presents with concern for headache. Notes headache began approximately 8 AM. Notes history of migraines feel similar. Notes nausea. 2 episodes of nonbloody nonbilious vomitus. No sensitivity to light. Denies any falls or head trauma. Eyes any recent travel. No sick contacts. Patient denies sudden onset or thunderclap headache, denies maximal intensity within 1 minute, vomiting, neck pain, stiffness, changes in vision, fever, history malignancy, syncope, or seizures associated with headache. REVIEW OF SYSTEMS: Pertinent positives: Headache Pertinent negatives: As per HPI PHYSICAL EXAM: Nursing triage notes reviewed, Vital signs reviewed Constitutional: please see mdm HENT: MMM Eyes: Pupils equal round and reactive to light, Extraocular muscles intact Neck: No stridor, no JVD, full neck ROM Lungs: Clear to auscultation, No wheezing or rales. No increased work of breathing, no conversational dyspnea, no accessory muscle use, no nasal flaring. No respiratory distress noted Heart: Regular rate and rhythm, No murmurs, No rubs and No gallops, 2+ distal pulses (radial, femoral, posterior tibial) in all extremities Abdomen: Soft, there is no tenderness, rigidity, rebound or guarding, no obvious peritoneal signs, no palpable pulsatile abdominal masses, no auscultated abdominal bruit : No CVAT Extremities: No edema Neuro: Alert and oriented x3, neuro exam at baseline, cranial nerves II through XII are intact. No pain with extraocular muscle movement. There is negative test of skew. 5 of 5 strength in upper and lower extremities in flexion extension. Intact sensation to light touch in upper and lower extremity dermatomes. No truncal or extremity ataxia. No dysdiadochokinesia. Normal gait. 2+ reflexes in upper and lower extremities. No meningeal signs. Negative Babinski. NIH of 0. Skin: No rash or lesions noted MEDICAL DECISION MAKING: Chief Complaint: please see HPI External records reviewed: Reviewed prior imaging study Factors affecting care: Bleed or other abnormality reviewed prior imaging studies of the brain. CT scan of the brain from 2022 showed no evidence of obvious Social determinants of health: History of mental health disorder History obtained from others: none Consults: none MDM Narrative: The patient was initially hemodynamically stable, afebrile and nontoxic-appearing. Initial neurologic exam intact. No focal neurologic deficits. No meningeal signs patient notes that in the past she has had severe hyponatremia which has led to ICU admissions. I considered the following differential diagnosis: ICH, subarachnoid hemorrhage, cavernous sinus thrombosis, cerebral vein thrombosis clinical primary headache (migraine, tension, cluster). I obtained to further determine if the patient was suffering from a life-threatening etiology. Given concern for hyponatremia I did obtain a BMP as well as gave initial migraine cocktail medications including Reglan, Decadron and normal saline. Did not give Toradol as patient has an allergy. ALL IMAGES (IF OBTAINED) HAVE BEEN PERSONALLY REVIEWED AND INTERPRETED BY MYSELF. BMP without evidence of significant electrolyte abnormalities, no anion gap, no acute kidney injury. On reevaluation the patient remained neurovascularly intact. Remained afebrile. Patient noted symptomatic improvement in her headache. Likely migraine. Will give Reglan and have her follow with her neurologist. Strict return precautions will be discussed. The patient and/or family, caregivers express understanding. The patient and/or family, caregivers agrees with the plan. Shared decision making: I will have a discussion with the patient and or visitors regarding risk/benefits of further testing or admission. They will be made aware of of the risk/benefits inherent in this decision they will be given the opportunity to voice understanding. Total critical care time today provided was at least 0 [] minutes. This excludes separately billable procedures. Critical care time (if documented) is secondary to the patient having high probability of clinically significant/life threatening deterioration in the patient's condition which required my urgent intervention. Impression: 1. Acute headache 2. Migraine Dispo: Discharge home This note was generated with [employer] dictation software. It may contain incorrect words, spelling, and punctuation that were not noted in review of the chart prior to signing. Lab Data Labs: Laboratory Results - last 24 hr 05/27/25 17:30 Sodium 140 Potassium 3.7 Chloride 104 Carbon Dioxide 23.6 Anion Gap 12 BUN 12 Creatinine 0.91 Estim Creat Clear Calc 77.25 Est GFR (MDRD) Non-Af 80 BUN/Creatinine Ratio 13.4 Glucose 97 Calcium 9.5 Discharge Plan Triage Chief Complaint: Headache ED Provider: Saman Ponce Dx/Rx/DC Orders Prescriptions: No Action gabapentin 400 MG capsule 400 mg PO TID PRN (Reason: NEUROPATHY ) Patient Comments: PT STATES THEIR DOCTOR RECENTLY UPPED THE DOSE THAT CAN BE TAKEN diphenhydramine HCl [Allergy (diphenhydramine)] 25 mg capsule 25 mg PO QHS pantoprazole 40 mg tablet,delayed release (DR/EC) 40 mg PO DAILY promethazine 25 mg tablet 25 mg PO Q8H PRN PRN (Reason: nausea/vomiting) escitalopram oxalate 20 mg tablet 20 mg PO DAILY cyclobenzaprine 10 mg tablet 10 mg PO TID PRN (Reason: Muscle Spasm) Qty: 15 0RF hyoscyamine sulfate 0.125 mg tablet,disintegrating 0.125 mg PO Q6H PRN (Reason: abdominal discomfort) Qty: 10 0RF ondansetron 4 mg tablet,disintegrating 4 mg PO Q6H PRN (Reason: nausea and vomiting) Qty: 20 0RF doxycycline hyclate 100 mg capsule 100 mg PO BID 7 Days Qty: 14 0RF alprazolam 0.5 mg tablet 0.5 mg PO BID Qty: 30 0RF hyoscyamine sulfate 0.125 mg tablet 0.125 mg PO TID PRN (Reason: dyspepsia) Qty: 90 0RF Primary Care Provider: Michell Baca Referrals: Michell Baca MD [Primary Care Provider] - Print Language: Jordanian
--- OUTSIDE RECORDS SUMMARY | 2025-05-27 17:09 | XMS RPT_ITS | CCD ---
Author Organization [facility] CliniSytn Care Team Providers Care Tubing Oiler Name Role Phone MARCELINO ALBERT Admitting Unavailable MARCELINO ALBERT Referring Unavailable NO, PHYSICIAN Primary Care Unavailable IGOE, SARAH MARINA Attending Unavailable NO, PHYSICIAN Primary Care Unavailable IGOE, SARAH MARINA Attending Unavailable No, Physician Primary Care Provider Unavailabl MARCELINO Wyatt MD Primary Care Physician Marcelino Albert MD Primary Care Provider Unava ilable Marcelino Albert MD Primary Care Provider MARCELINO ALBERT MD Primary Care Physician Marcelino Albert MD Primary Care Provider Marcelino Albert MD Primary Care Provider Marcelino Albert MD Primary Care Provider Unavailable Primary Care Provider Unavailabl Marcelino Wyatt MD Primary Care Provider PHYSICIAN, NONE Primary Care Physician Unavailab Silverio Jimenez MD Primary Care Provider EVANGELINA YARD ENGINEER-SALES MERCHANDISING SPECIALISTMERCED Primary Care Physicia n MALA ALMENDAREZ Attending Unavailable SILVERIO HALEY Primary Care Unavailable Marcelino Albert MD Primary Care Provider Marcelino Albert MD Primary Care Provider [phone] Dr. Silverio Haley Primary Care Provider Dr. Ryan Garcia Emergency Provider Dr. Jonh Geiger Admit Provider [phone] Jonh Geiger Other Provider [phone] Attending Provider Dr. Uday Roseaan Other Provider Dr. Eduar Gurrola Other Provider Dr. Eduar Gurrola Attending Provider Silvreio Haley MD Primary Care Provider Dr. Silverio Haley Referring Provider Friend, Dr. Plaza Attending Provider EAVNGELINA YARD ENGINEER-SALES MERCHANDISING SPECIALIST, [facility] Unava iltrever HENDERSON MD, ETHAN Shannon Attending Unavail able BEATRIZ ALVARADO, ETHAN Shannon Attending Unavail able EVANGELINA YARD ENGINEER-SALES MERCHANDISING SPECIALIST, [facility] Unava ilable KAPPER YARD ENGINEER-SALES MERCHANDISING SPECIALIST, PIERCE Eddy Admitting Unavaila ble KAPPER YARD ENGINEER-SALES MERCHANDISING SPECIALIST, PIERCE Eddy Attending Unavaila ble EVANGELINA YARD ENGINEER-SALES MERCHANDISING SPECIALIST, [facility] Unava juanitaable MICHELLE ALVARADO, DR CHÁVEZ Consulting Unavailabl e OWATE, OKARI Referring Unavailable OWATE, OKARI Consulting Unavailable EVANGELINA YARD ENGINEER-SALES MERCHANDISING SPECIALIST, [facility] Unava juanitaable BRAEDEN ALVARADO, KAI Admitting Unavailable PLUNK DO, NIKHIL Consulting Unavailable CHEY CASTRO MD Attending Unavailhanna Albert MD, Marcelino Ferreira Primary Care Provider Roosevelt ALVARADO, Marcelino Ferreira Primary Care Provider Roosevelt ALVARADO, Marcelino Ferreira Unavailable Newton YARD ENGINEER.PROVIDER ENGAGEMENT EXECUTIVE, Gretchen Unavailable Evangelina YARD ENGINEER.SALES MERCHANDISING SPECIALIST, [place] Unavailable DR SILVERIO HALEY MD Primary Care Physician Evangelina YARD ENGINEER.SALES MERCHANDISING SPECIALIST, [place] Unavailable Dr. Silverio Haley MD Primary Care Provider [phone] Dr. Mac Whitmore DO Attending Provider Dr. Mac Whitmore DO Emergency Provider Dr. Chance Botello DO Attending Provider Dr. Chance Botello DO Emergency Provider Rosmery GREGG Dr. Fletcher Referring Provider Sudha ALVARADO, Dr. Silverio Oliver Primary Care Provider [phone] Haim GREGG, Dr. Watts Attending Provider Haim GREGG, Dr. Watts Emergency Provider Rosmery GREGG, Dr. Fletcher Attending Provider Rosmery GREGG, Dr. Fletcher Emergency Provider Rosmery GREGG, Dr. Fletcher Referring Provider Provider, Ed Physician Emergency Provider Evan Hutchinson YARD ENGINEER.SALES MERCHANDISING SPECIALIST, [place] Unavailable [phone] Unavailable Primary Care Provider UnavailSilverio Whalen Primary Care Provider JEAN, NIKHIL E Admitting Unavailable JEAN, NIKHIL E Primary Care Unavailable JEAN, NIKHIL E Attending Unavailable HUGO, ISABEL PA Consulting Unavailable HUGO, ISABEL PA Referring Unavailable CASSIDY, HIRA C Admitting Unavailable CASSIDY, HIRA C Attending Unavailable CASSIDY, HIAR C Primary Care Unavailable PROVIDER, UNKNOWN Consulting Unavailable CHEKO REVELES Primary Care Unavailable CHEKO REVELES Admitting Unavailable CHEKO REVELES Attending Unavailable HUGO, ISABEL PA Consulting Unavailable ARIAS, ISABEL PA Referring Unavailable PROVIDER, UNKNOWN Consulting Unavailable JEAN, NIKHIL E Primary Care Unavailable JEAN, NIKHIL E Admitting Unavailable ARIAS, ISABEL PA Consulting Unavailable JEAN, NIKHIL E Attending Unavailable HUGO, ISABEL PA Referring Unavailable PROVIDER, UNKNOWN Consulting Unavailable JEAN, NIKHIL E Primary Care Unavailable JEAN, NIKHIL E Admitting Unavailable JEAN, NIKHIL E Attending Unavailable JEAN, NIKHIL E Primary Care Unavailable JEAN, NIKHIL E Admitting Unavailable JEAN, NIKHIL E Attending Unavailable HUGO, ISABEL PA Consulting Unavailable HUGO, ISABEL PA Referring Unavailable PROVIDER, UNKNOWN Consulting Unavailable ED GAUTHIER DO Admitting Unavailable ED GAUTHIER DO Attending Unavailable HUGO, ISABEL PA Consulting Unavailable ED GAUTHIER DO Primary Care Unavailable HUGO, ISABEL PA Referring Unavailable PROVIDER, UNKNOWN Consulting Unavailable JEAN, NIKHIL E Admitting Unavailable SILVERIO HALEY MD Consulting Unavailable JEAN, NIKHIL E Attending Unavailable JEAN, NIKHIL E Primary Care Unavailable SILVERIO HALEY MD Referring Unavailable PROVIDER, UNKNOWN Consulting Unavailable ALICE OSWALD DO Primary Care Unavailable ALICE OSWALD DO Admitting Unavailable ALICE OSWALD DO Attending Unavailable ISABEL ARIAS Consulting Unavailable HUGO ISABEL PA Referring Unavailable PROVIDER, UNKNOWN Consulting Unavailable HIRA CASSIDY C Admitting Unavailable ARIAS, ISABEL PA Consulting Unavailable HIRA CASSIDY C Attending Unavailable HUGO, ISABEL PA Referring Unavailable ANGE HIRA C Primary Care Unavailable PROVIDER, UNKNOWN Consulting Unavailable ED GAUTHIER DO Primary Care Unavailable ED GAUTHIER DO Admitting Unavailable ED GAUTHIER DO Attending Unavailable FABIAN ARIASANNE PA Consulting Unavailable HUGO, ISABEL PA Referring Unavailable PROVIDER, UNKNOWN Consulting Unavailable CHEKO REVELES Admitting Unavailable CHEKO REVELES Attending Unavailable CHEKO REVELES Primary Care Unavailable SILVERIO HALEY MD Consulting Unavailable SILVERIO HALEY MD Referring Unavailable PROVIDER, UNKNOWN Consulting Unavailable WILFRIDO ARREOLA MD Admitting Unavailable WILFRIDO ARREOLA MD Attending Unavailable WILFRIDO ARREOLA MD Primary Care Unavailable CSERNYIK, RAN DO Admitting Unavailable CSERNYMILEY, RAN DO Attending Unavailable CSERJOCELYN, RAN Primary Care Unavailable LARA RODRIGUEZ MD Attending Unavailable LARA RODRIGUEZ MD Primary Care Unavailable FABIAN ARIASANNE PA Consulting Unavailable LARA RODRIGUEZ MD Admitting Unavailable ISABEL ARIAS Referring Unavailable PROVIDER, UNKNOWN Consulting Unavailable LARA RODRIGUEZ MD Admitting Unavailable LARA RODRIGUEZ MD Attending Unavailable LARA RODRIGUEZ MD Primary Care Unavailable HUGO, ISABEL PA Consulting Unavailable HUGO, ISABEL PA Referring Unavailable PROVIDER, UNKNOWN Consulting Unavailable LARA RODRIGUEZ MD Attending Unavailable LARA RODRIGUEZ MD Primary Care Unavailable LARA RODRIGUEZ MD Admitting Unavailable SILVERIO HALEY MD Referring Unavailable SILVEIRO HALEY MD Consulting Unavailable PROVIDER, UNKNOWN Consulting Unavailable ALICE OSWALD DO Admitting Unavailable ALICE OSWALD DO Attending Unavailable ALICE OSWALD DO Primary Care Unavailable ESTRELLITA MOTTA DO Admitting Unavailable ESTRELLITA MOTTA DO Attending Unavailable HUGO, ISABEL PA Consulting Unavailable ESTRELLITA MOTTA DO Primary Care Unavailable HUGO, ISABEL PA Referring Unavailable PROVIDER, UNKNOWN Consulting Unavailable Newton YARD ENGINEER.PROVIDER ENGAGEMENT EXECUTIVE, Gretchen Unavailable Javed YARD ENGINEER.PROVIDER ENGAGEMENT EXECUTIVE, Gretchen Unavailable [phone] SUDHA ALVARADO, DR SAWYER Primary Care Unavailable KAREY GILMORE MD Attending Unavailable SUDHA ALVARADO, DR SAWYER Primary Care Unavailable BEATRIZ ALVARADO, ETHAN Shannon Attending Unavail able SUDHA ALVARADO, DR SAWYER Primary Care Unavailable MACKENZIE BEE DO Attending Unavailable SUDHA ALVARADO, DR SAWYER Primary Care Unavailable SUZETTE ALVARADO, DR WARD Attending Unavailabl e SUDHA ALVARADO, DR SAWYER Primary Care Unavailable [...] Attending Unavailable TALAMPAS, SILVERIO Primary Care Unavailable Talampas , Dr. Silverio Oliver [facility] Emergency Provider Leonardo Farr Attending Unavailabl e Talampas, Silverio D Primary Care Unavailable Talampas, Silverio D Primary Care Unavailable Tristen Adams Attending Unavailable Talampas, Silverio D Primary Care Unavailable Chance Botello Attending Unavailable Mac Whitmore Attending Unavailable Talampas, Silverio D Primary Care Unavailable FriendBlue Attending Unavailable Talampas, Silverio D Referring Unavailable Talampas, Silverio D Primary Care Unavailable Leonardo Farr Attending Unavailabl e Talampas, Silverio D Primary Care Unavailable Talampas, Silverio D Primary Care Unavailable Chance Botello Referring Unavailable Chance Botello Attending Unavailable FriendBlue Attending Unavailable Talampas, Silverio D Primary Care Unavailable Talampas, Silverio D Referring Unavailable FriendBlue Attending Unavailable FriendBlue Consulting Unavailable Talampas, Silverio D Referring Unavailable Talampas, Silverio D Primary Care Unavailable FriendBlue Attending Unavailable Talampas, Silverio D Primary Care Unavailable Talampas, Silverio D Referring Unavailable Provider, Ed Physician Attending Unavailab le Talampas, Silverio D Primary Care Unavailable Allergies Allergy Classification Reported Allergen(s) Allergy Type Date of Onset Reaction(s) Facility Anticholinergics (1 source) Dicyclomine Drug Allergy 04-01-20 [address] [facility] Aspirin (1 source) Aspirin Drug Allergy 05-26-20 [address] [facility] Cephalosporins (antibiotic) (1 source) Cephalexin Drug Allergy 10-20-[address] [facility] Chlorhexidine (1 source) Chlorhexidine Drug Allergy 10-29-19 [address] [facility] Iodine (and Iodine containting drugs) (1 source) Iodine Drug Allergy 05-17-20 08 Shortness of Breath [facility] NSAIDs (2 sources) Ibuprofen Drug Allergy 06-18-20 16 GI Upset, Rash [facility] Penicillins (antibiotic) (1 source) Penicillins Drug Allergy 12-08-19 10 [facility] Quinolones (antibiotic) (1 source) Ciprofloxacin Drug Allergy 01-19-20 24 [facility] Work Phone: (17 sources) Contrast media; Translations: [iodinated radiocontrast agents] Allergy to substance [facility] (20 sources) Ibuprofen; Translations: [ibuprofen] Drug Allergy 06-18-20 16 GI Upset [facility] (20 sources) Ketorolac; Translations: [ketorolac] Drug Allergy 05-25-20 20 Rash [facility] (20 sources) metroNIDAZOLE; Translations: [metronidazole] Drug Allergy 04-11-20 15 Shortness Of Breath, [facility] Work Phone: (17 sources) Penicillin; Translations: [penicillins] Drug Allergy [facility] (20 sources) Promethazine; Translations: [promethazine] Drug Allergy 05-26-20 19 Unknown, [facility] (20 sources) Naproxen; Translations: [naproxen] Drug Allergy 02-25-20 25 [facility] (20 sources) Ondansetron; Translations: [ondansetron] Drug Allergy 12-01-19 24 Unknown [facility] (6 sources) Aluminum aspirin; Translations: [ASPIRIN] Drug Allergy 04-11-20 15 Itching [facility] (20 sources) Chlorhexidine; Translations: [CHLORHEXIDINE] Drug Allergy 10-29-19 17 Rash [facility] Work Phone: (3 sources) HYDROmorphone Drug Allergy 08-08-20 15 Hives [facility] (20 sources) Iodine; Translations: [IODINE] Drug Allergy 05-17-20 08 Shortness Of Breath [facility] (12 sources) Penicillins; Translations: [PENICILLINS] Propensity to adverse reactions to drug 12-08-19 10 Rash [facility] (5 sources) Gadolinium Derivatives Propensity to adverse reactions to drug 08-08-20 15 Other (See Comments) [facility] (20 sources) Aspirin; Translations: [aspirin] Drug Allergy 05-26-20 19 Unknown [facility] (4 sources) Contrast media Allergy to substance 09-15-19 22 Anaphylaxis [facility] Work Phone: (5 sources) Contrast media Allergy to substance 09-15-19 22 Anaphylaxis [facility] (20 sources) Ketorolac; Translations: [ketorolac tromethamine] Drug Allergy 09-15-19 22 [facility] (20 sources) Cephalexin; Translations: [CEPHALEXIN] Drug Allergy 10-20-[address] [facility] (2 sources) Penicillins Drug Allergy 12-08-19 10 [facility] Work Phone: [phone] (20 sources) predniSONE; Translations: [PREDNISONE] Drug Allergy 06-18-20 16 Other: See Comments [facility] Work Phone: (20 sources) Salicylic Acid; Translations: [SALICYLATES] Drug Allergy 01-28-20 11 Other: See Comments, Itching, Unknown, Other [facility] Work Phone: (20 sources) traMADol; Translations: [TRAMADOL] Drug Allergy 05-25-20 20 [facility] (20 sources) Penicillins Drug Allergy 12-08-19 10 [facility] Work Phone: (20 sources) Salicylate product Drug Allergy 01-28-20 11 Other: See Comments [facility] Work Phone: (20 sources) Penicillins Allergy to substance 07-29-20 22 Hives [facility] (20 sources) Triiodobenzoic Acids; Translations: [IODINATED CONTRAST MEDIA] Allergy to substance 11-19-19 23 Anaphylaxis, Shortness of breath [facility] Comment on above: CT DYE (20 sources) Dicyclomine; Translations: [DICYCLOMINE] Drug Allergy 04-01-20 23 [facility] (20 sources) Iodinated Contrast Media Drug Allergy 02-10-20 [address] [facility] (20 sources) Ciprofloxacin; Translations: [CIPROFLOXACIN] Drug Allergy 01-19-20 [address] [facility] (20 sources) fentaNYL; Translations: [fentanyl] Drug Allergy 11-18-19 Shortness of breath [facility] Comment on above: SOB, HIV (20 sources) Non-steroidal anti-inflammatory agent Propensity to adverse reactions 12-13-19 25 [facility] (20 sources) Penicillins Propensity to adverse reactions 12-13-19 25 [facility] (8 sources) Penicillins Drug Allergy 12-08-19 [address] [facility] (17 sources) Gadolinium Derivatives Propensity to adverse reactions 08-08-20 15 Cough [facility] (1 source) Aspirin Drug Allergy [facility] (1 source) Dicyclomine Drug Allergy [facility] (1 source) fentaNYL Drug Allergy [facility] (1 source) Ibuprofen Drug Allergy [facility] (1 source) Ketorolac Drug Allergy [facility] (1 source) metroNIDAZOLE Drug Allergy [facility] (1 source) Penicillins Drug allergy (disorder) [facility] (1 source) CONTRAST MEDIA, IODINE RELATED Drug allergy (disorder) [facility] (1 source) Aspirin Drug Allergy 05-15-20 25 [facility] (1 source) Dicyclomine Drug Allergy 05-15-20 25 [facility] (1 source) fentaNYL Drug Allergy 05-15-20 [facility] (1 source) metroNIDAZOLE Drug Allergy 05-15-20 [facility] (1 source) Penicillins Drug allergy (disorder) 05-15-20 [facility] (1 source) Iodinated Contrast Media Drug allergy (disorder) 05-15-20 [facility] Medications Current Medications Medication Drug Class(es) Dates Sig (Normalized) Sig (Original) acetaminophen 325 mg / HYDROcodone bitartrate 5 mg oral tablet (20 sources) Opioid Agonist Start: 12-05-2024 End: 12-17-2024 HYDROcodone-acetam inophen (Raymond) 5-325 MG tablet Dose = 1 tab(s), [...] HOURS NEEDED as needed for Pain 8 3 0 October 25, 2023 December 03, 2023 5:03pm Contusion of knee Contusion of unspecified knee, initial encounter Start: 10-25-2023 End: 12-03-2023 take 1 tablet by mouth every four hours as needed Hydrocodone-Acetaminophen Discontinued 1 TABLET PO EVERY 4 HOURS NEEDED 8 3 October 25, 2023 December 03, 2023 5:03pm Start: 04-01-2023 End: 10-25-2023 Hydrocodone-Acetaminophen 5- 325 mg tablet Discontinued 1 {tbl} PO EVERY 6 HOURS NEEDED as needed for Pain 10 3 0 April 01, 2023 October 25, 2023 5:52pm Flank pain Unspecified abdominal pain Start: 04-01-2023 End: 10-25-2023 take 1 tablet by mouth every six hours as needed Hydrocodone-Acetaminophen Discontinued 1 TABLET PO EVERY 6 HOURS NEEDED 10 3 April 01, 2023 October 25, 2023 5:52pm Start: 03-16-2023 End: 03-19-2023 Raymond 325- 5 mg oral tablet Dose = 1 tab(s), Oral, QID, PRN Pain, scale 4-6, X 3 day(s), # 12 tab(s), 0 Refill(s), Pharmacy: [facility]/pharmacy #[id number], Acute pancreatitis, 155, cm, 03/15/23 11:21:00 EDT, [...] every six hours as needed for pain Raymond 325- 5 mg oral tablet Dose = 1 tab(s), Oral, q6h, PRN as needed for pain, # 12 tab(s), 0 Refill(s), Kidney stone, 93.3 Start Date: 10/12/22 Stop Date: 10/15/22 Status: Ordered Start: 09-13-2021 End: 09-16-2021 take 1 tablet by mouth every six hours as needed for pain Raymond 325- 5 mg oral tablet Dose = 1 tab(s), Oral, q6h, PRN as needed for pain, # 12 tab(s), 0 Refill(s), Abdominal pain, 91 Start Date: 09/13/21 Stop Date: 09/16/21 Status: Ordered Start: 08-16-2021 End: 08-19-2021 take 1 tablet by mouth every six hours Raymond 325- 5 mg oral tablet Dose = 1 tab(s), Oral, q6h, # 12 tab(s), 0 Refill(s), Cellulitis, 91 Start Date: 08/16/21 Stop Date: 08/19/21 Status: Ordered Start: 06-14-2021 take 1 tablet by nick th every six hours Hydrocodone-Acetaminophen Active 1 TABLE T PO EVERY 6 HOURS 10 3 June 14, 2021 Start: 01-04-2020 End: 01-06-2020 Hydrocodone-Acetaminophen 1 TABLET tablet Discontinued 1 {tbl} PO EVERY 4 HOURS NEEDED as needed for Pain 10 2 0 January 04, 2020 January 05, 2020 12:00am January 06, 2020 12:02am Contusion of back Contusion of unspecified back wall of thorax, initial encounter Start: 01-04-2020 End: 01-06-2020 take 1 tablet by mouth every four hours as needed Hydrocodone-Acetaminophen Discontinued 1 TABLET PO EVERY 4 HOURS NEEDED 10 2 January 04, 2020 January 06, 2020 12:02am Start: 09-02-2019 End: 09-05-2019 Hydrocodone-Acetaminophen 1 TABLET tablet Discontinued 1 {tbl} PO EVERY 6 HOURS NEEDED as needed for Pain 10 3 0 September 02, 2019 September 04, 2019 1:00am September 05, 2019 1:08am Adnexal cyst Unspecified condition associated with female genital organs and menstrual cycle Start: 09-02-2019 End: 09-05-2019 take 1 tablet by mouth every six hours as needed Hydrocodone-Acetaminophen Discontinued 1 TABLET PO EVERY 6 HOURS NEEDED 10 3 September 02, 2019 September 05, 2019 1:08am Start: 04-18-2019 End: 04-23-2019 Hydrocodone-Acetaminophen 1 TABLET tablet Discontinued 1 {tbl} PO EVERY 6 HOURS NEEDED as needed for Pain 10 3 0 April 18, 2019 April 20, 2019 12:00am April 23, 2019 12:10am Flank pain Unspecified abdominal pain Start: 04-18-2019 End: 04-23-2019 take 1 tablet by mouth every six hours as needed Hydrocodone-Acetaminophen Discontinued 1 TABLET PO EVERY 6 HOURS NEEDED 10 3 April 18, 2019 April 23, 2019 12:10am Start: 03-29-2019 End: 04-02-2019 Hydrocodone-Acetaminophen 1 TABLET tablet Discontinued 1 {tbl} PO EVERY 6 HOURS NEEDED as needed for Pain 10 3 0 March 29, 2019 March 31, 2019 12:00am April 02, 2019 12:09am Flank pain Unspecified abdominal pain Start: 03-29-2019 End: 04-02-2019 take 1 tablet by mouth every six hours as needed Hydrocodone-Acetaminophen Discontinued 1 TABLET PO EVERY 6 HOURS NEEDED 10 3 March 29, 2019 April 02, 2019 12:09am Start: 02-19-2019 End: 02-22-2019 Hydrocodone-Acetaminophen 1 TABLET tablet Discontinued 1 {tbl} PO EVERY 6 HOURS NEEDED as needed for Pain 12 3 0 February 19, 2019 12:00am February 21, 2019 12:00am February 22, 2019 12:07am Acute right flank pain Unspecified abdominal pain Start: 02-19-2019 End: 02-22-2019 take 1 tablet by mouth every six hours as needed Hydrocodone-Acetaminophen Discontinued 1 TABLET PO EVERY 6 HOURS NEEDED 08 16February 19, 2019 12:00am February 22, 2019 12:07am Start: 09-10-2018 End: 09-13-2018 Hydrocodone-Acetaminophen 1 TABLET tablet Discontinued 1 {tbl} PO EVERY 6 HOURS NEEDED as needed for Pain 20 September 10, 2018 1:00am September 12, 2018 1:00am September 13, 2018 1:09am Calculus of kidney Calculus of kidney Start: 09-10-2018 End: 09-13-2018 take 1 tablet by mouth every six hours as needed Hydrocodone-Acetaminophen Discontinued 1 TABLET PO EVERY 6 HOURS NEEDED 01 12September 10, 2018 1:00am September 13, 2018 1:09am Start: 06-26-2018 End: 06-29-2018 Hydrocodone-Acetaminophen 1 TABLET tablet Discontinued 1 {tbl} PO EVERY 6 HOURS NEEDED as needed for Pain 12 June 26, 2018 12:00am June 28, 2018 12:00am June 29, 2018 12:08am Calculus of right kidney Calculus of kidney Start: 06-26-2018 End: 06-29-2018 take 1 tablet by mouth every six hours as needed Hydrocodone-Acetaminophen Discontinued 1 TABLET PO EVERY 6 HOURS NEEDED 08 16June 26, 2018 12:00am June 29, 2018 12:08am Comment on above: Take 1 tablet by nick every 8 hours as needed for pain [...] End: 12-12-2024 1 tablet, Oral, Once, On 12/12/24 at 1650, For 1 dose, Maximum dose of acetaminophen is 4000 mg from all sources in 24 hours. Start: 12-15-2020 End: 12-18-2020 Oxycodone-Acetaminophen 1 TA BLET tablet Discontinued 1 {tbl} PO EVERY 6 HOURS NEEDED as needed for Pain 12 3 December 15, 2020 December 17, 2020 12:00am December 18, 2020 12:04am Pain, unspecified Start: 12-15-2020 End: 12-18-2020 take 1 tablet by mouth every six hours as needed Oxycodone-Acetaminophen Discontinued 1 TABLET PO EVERY 6 HOURS NEEDED 12 December 15, 2020 December 18, 2020 12:04am Start: 06-17-2020 End: 06-20-2020 Oxycodone-Acetaminophen 1 TA BLET tablet Discontinued 1 {tbl} PO EVERY 6 HOURS NEEDED as needed for Pain 12 3 June 17, 2020 June 19, 2020 12:00am June 20, 2020 12:02am Abdominal pain Unspecified abdominal pain Start: 06-17-2020 End: 06-20-2020 take 1 tablet by mouth every six hours as needed Oxycodone-Acetaminophen Discontinued 1 TABLET PO EVERY 6 HOURS NEEDED 12 June 17, 2020 June 20, 2020 12:02am Start: 04-27-2020 End: 04-30-2020 Oxycodone-Acetaminophen 1 TA BLET tablet Discontinued 1 {tbl} PO EVERY 6 HOURS NEEDED as needed for Pain 12 3 April 27, 2020 April 29, 2020 12:00am April 30, 2020 12:02am Abdominal pain Unspecified abdominal pain Start: 04-27-2020 End: 04-30-2020 take 1 tablet [...] (PERCOCET) 5-325 MG per tablet 1 tablet [id number] 200 actuat albuterol 0.09 mg/actuat metered dose [...] 0 Refill(s) Start Date: 02/20/23 Status: Ordered ALPRAZolam 0.5 mg oral tablet (6 sources) Benzodiazepine Start: 12-05-2024 take 1 tablet by mouth twice daily Alprazolam 0.5 mg tablet Active 0.5 mg PO TWICE A DAY 30 0 December 05, 2024 12:00am Start: 10-07-2019 End: 10-07-2019 ALPRAZolam (NIRAVAM) dissolv able tablet 0.25 mg Start: 09-03-2016 End: 09-30-2019 ALPRAZolam (XANAX) 0.5 MG ta blet Take 0.5 mg by mouth 0 09/03/2016 09/30/2019 Discontinued (LIST CLEANUP) atorvastatin 20 mg oral tablet (20 sources) [...] Comment on above: Take 2 tablets by [facility] once daily for 1 day, THEN 1 [...] oral capsule (2 sources) Cephalosporin Antibacterial Start: 5 End: 5 take 1 capsule by mouth twice daily cefdinir (OMNICEF) 300 mg capsule Take 1 capsule by mouth two times a day for 10 days. 20 capsule 10/18/2024 10/28/2024 Active cephalexin 500 mg oral capsule (9 sources) Cephalosporin Antibacterial Start: 5 End: 5 cephalexin 500 mg oral capsule Dose : [...] 1 capsule by mo uth once daily. clindamycin 150 mg oral capsule (20 sources) Lincosamide Antibacterial Start: 03-11-20 End: 03-16-20 take 3 capsules by mouth three times daily clindamycin (CLEOCIN) 150 mg capsule Take 3 capsules by mouth three times a day for 5 days. 45 capsule 0 03/11/2024 03/16/2024 Active Start: 06-06-2023 End: 10-25-2023 take 2 capsules by mouth four times daily Clindamycin Hcl 150 mg capsule Discontinued 300 mg PO 4 TIMES DAILY 80 10 0 June 06, 2023 12:00am October 25, 2023 5:52pm Start: 06-06-2023 End: 10-25-2023 take 2 capsules by mouth every eight hours Clindamycin Hcl (Cleocin Hcl) 150 mg capsule Discontinued 300 mg PO Q8H 60 10 0 June 06, 2023 12:00am October 25, 2023 5:52pm Start: 06-06-2023 End: 10-25-2023 take 300 mg by mouth four times daily Clindamycin Hcl Discontinued 300 MG PO 4 TIMES DAILY 80 10 June 06, 2023 12:00am October 25, 2023 [...] days. 45 capsule 0 09/08/2022 09/13/2022 Start: 07-28-2021 take 300 mg by mouth four times daily Clindamycin Hcl Active 300 MG PO 4 TIMES DAILY April 09, 2021 11:00pm Comment on above: Take 3 capsules by m out three times daily for 5 days. colestipol hydrochloride 1000 mg oral tablet (20 sources) Bile Acid Sequestrant Start: 12-08-19 take 1 tablet by mouth twice daily colestipol (COLESTID) 1 gram tablet Take 1 tablet by mouth two times a day. 60 tablet 5 12/07/2024 Active cyclobenzaprine hydrochloride 10 mg oral tablet (20 sources) Muscle Relaxant Start: 07-20-20 End: 10-03-19 take 1 tablet by mouth three times daily as needed for muscle spasms Cyclobenzaprine 10 mg tablet Active 10 mg PO THREE TIMES A DAY as needed for Muscle Spasm 15 0 August 21, 2024 1:00am Start: 01-04-2020 End: 01-16-2020 take 1 tablet by mouth three times daily as needed for muscle spasms Cyclobenzaprine 10 MG tablet Discontinued 10 mg PO THREE TIMES A DAY as needed for Muscle Spasm 20 0 January 04, 2020 12:00am January 16, 2020 [...] 03, 2023 12:00am February 23, 2024 9:58am ALLERGIES Start: 10-09-2019 diphenhydrAMIN E (BENADRYL) tablet 25 mg Start: 03-29-2019 take 2 capsules by m outh every twenty-four hours as needed diphenhydrAMINE (BENADRYL) 25 mg capsule Take 50 mg by mouth at bedtime as needed. 03/29/2019 Active Comment on above: Take 50 mg by mouth at bedtime as needed. doxycycline hyclate 100 mg oral capsule (20 sources) Tetracycline-clas s Drug Start: 05-15-2025 take 1 capsule by mouth twice daily Doxycycline Hyclate 100 mg capsule Active 100 mg PO TWICE A DAY 14 7 0 May 15, 2025 12:00am Start: 10-17-2024 End: 10-22-2024 take 1 tablet [...] above: Take 1 tablet by nick th twice daily for 10 days. Take 1 tablet by nick th twice daily for 5 days. Take 1 tablet by nick th two times a day for 7 days. Dulera 200 mcg-5 mcg/inh Metered Dose Inhaler (2 sources) Start: 023 take 1 dose by inhalation twice daily Dulera 200 mcg-5 mcg/inh Metered Dose Inhaler Dose = 2 puff(s), Inhalation, BID, # 13 gram(s), 0 Refill(s) Start Date: 01/15/23 Status: Ordered 0.4 ml enoxaparin sodium 100 mg/ml prefilled syringe (1 source) Low Molecular Weight Heparin Start: 019 inject 40 mg by subcutaneous injection once daily 40 mg, Subcutaneous, DAILY, First dose on 09/03/19 at 1030 [id number] 0.3 ml EPINEPHrine 1 mg/ml auto-injector (14 sources) alpha-Adrenergic Agonist, beta-Adrenergic Agonist, Catecholamine Start: EPINEPHrine (Epipen) 0.3 MG/0.3ML injection syringe As directed 05/10/2024 Active escitalopram 20 mg oral tablet (20 sources) Serotonin Reuptake Inhibitor Start: End: take 1 tablet by mouth once daily Escitalopram Oxalate 20 mg tablet Active 20 mg PO DAILY May 25, 2024 12:00am Start: 02-20-2023 Lexapro 10 mg oral tablet [...] tablet by nick th three times daily for 90 days. TAKE 1 TABLET BY NICK TH THREE TIMES A DAY Take 1 capsule by mo [facility] every 12 hours. homatropine methylbromide 0.3 [...] / neomycin 3.5 mg/ml / polymyxin b [id number] unt/ml otic suspension (1 source) Aminoglycoside Antibacterial, Polymyxin-class Antibacterial, Corticosteroid Start: 03-11-2024 End: 03-18-2024 hcdawrmy-oxriqbtxg-ypqupzdmb isone (CORTISPORIN) 3.5-10,000-1 mg/mL-unit/mL-% otic suspension Use 3 Drops in the right ear four times daily for 7 days. 10 mL 0 03/11/2024 03/18/2024 Active hydrOXYzine hydrochloride 25 mg oral tablet (20 sources) Antihistamine Start: 07-23-2021 hydrOXYzine hydrochloride 25 mg oral tablet Dose [...] 0.125 mg oral tablet (20 sources) Start: 12-05-2024 take 1 tablet by mouth three times daily as needed Hyoscyamine Sulfate 0.125 mg tablet Active 0.125 mg PO THREE TIMES A DAY as needed for dyspepsia 90 0 December 05, 2024 12:00am Start: 10-04-2024 End: 12-02-2024 take 1 tablet by mouth every six hours Hyoscyamine Sulfate (Levsin) 0.125 mg tablet Discontinued 0.125 mg PO EVERY 6 HOURS 16 4 0 October 04, 2024 1:00am December 02, 2024 10:01am Start: 02-24-2024 take 1 tablet by nick th every six hours as needed Hyoscyamine Sulfate 0.125 mg tablet,disintegrating Active 0.125 mg PO EVERY 6 HOURS as needed for abdominal discomfort 10 0 February 24, 2024 7:45pm Start: 03-31-2023 End: [...] every 4 hours as needed (for pain). magnesium hydroxide 80 mg/ml oral suspension (1 source) Start: 09-03-2019 take 30 mL by mouth once daily as needed for constipation 30 mL, Oral, DAILY PRN, Constipation, Starting 09/03/19 at 1003 First line therapy for constipation. melatonin 1 mg oral tablet (4 sources) Start: 10-07-2019 melatonin tablet 1 mg Start: 09-03-2019 melatonin tabl et 3 mg methylPREDNISolone (11 sources) Corticosteroid Start: 03-11-2023 End: [...] 12-17-2024 10 mg, IntraVE Nous, Once, On 4/5/25 at 1230, For 1 dose Start: 02-24-2024 End: 05-25-2024 take 1 tablet by mouth every twelve hours as needed for nausea and vomiting Metoclopramide Hcl 10 mg tablet Discontinued 10 mg PO EVERY 12 HOURS NEEDED as needed for nausea and vomiting 8 0 February 24, 2024 7:45pm May 25, 2024 2:10pm Start: 12-26-2023 End: 02-23-2024 take 1 tablet by mouth every six hours as needed for nausea and vomiting Metoclopramide Hcl (Reglan) 10 mg tablet Discontinued 10 mg PO EVERY 6 HOURS as needed for nausea and vomiting 30 0 December 26, 2023 12:00am February 23, 2024 [...] a day. 14 capsule 02/14/2025 Active nystatin [id number] unt/ml oral suspension (7 sources) Polyene Antifungal [...] tablet by mouth once daily Pantoprazole 40 mg tablet,delayed release (DR/EC) Active 40 mg PO DAILY May 25, 2024 12:00am Start: 12-24-2021 End: 06-26-2022 take 1 tablet by mouth twice daily before mealtime pantoprazole DR (PROTONIX) 40 mg tablet Take 1 tablet by mouth twice daily. Take on empty stomach, 1/2 hr before meal. 60 tablet 12/24/2021 06/26/2022 Discontinued Start: 01-14-2020 End: 01-16-2020 take 1 tablet by mouth once daily Pantoprazole 40 MG tablet Discontinued 40 mg PO DAILY 14 0 January 14, 2020 12:00am January 16, 2020 9:23am Comment on above: Take 1 tablet by nick th twice daily. Take on empty stomach, 1/2 hr before meal. Take 1 tablet by nick th once daily. Take on empty stomach, 1/2 hr before meal. Take 1 tablet by nick th daily [...] every eight hours as needed for nausea Promethazine 25 mg tablet Active 25 mg PO EVERY 8 HOURS NEEDED as needed for nausea/vomiting May 25, 2024 12:00am Start: 02-25-2020 End: 12-03-2023 take 1 tablet by mouth three times daily as needed for nausea and vomiting Promethazine 25 mg tablet Discontinued 25 mg PO THREE TIMES A DAY as needed for nausea and vomiting 14 0 June 14, 2021 12:00am December 03, 2023 [...] 14, 2019 12:00am February 05, 2020 8:22am DEPRESSION simethicone 80 mg chewable tablet (1 source) [...] a day. 60 tablet 11 12/07/2024 Active triamcinolone acetonide 1 mg/ml topical cream (9 [...] on above: Take 2 tablets by mo [facility] every 8 hours as needed for pain or fever (specify temp.). Take 1 tablet by nick th every 6 hours as needed for pain. amitriptyline hydrochloride 50 mg oral tablet (20 sources) Tricyclic Antidepressant Start: 10-23-2019 End: 12-14-2019 Amitriptyline 50 MG tablet Discontinued 75 mg PO DAILY October 23, 2019 1:00am December 14, 2019 10:39am Start: 10-23-2019 End: 12-14-2019 take 75 mg by mouth once daily Amitriptyline Discontin ued 75 MG PO DAILY October 23, 2019 1:00am December 14, 2019 10:39am amylase 81396 unt / lipase 3000 unt / protease 9500 unt delayed release oral capsule (20 sources) Start: 12-03-2023 End: 10-27-2024 take 1 capsule by mouth three times daily at mealtime hqenqb-igawfxkz-dbjliun (CREON 3) 3,000-9,500- 15,000 unit delayed release capsule Indications: Acute pancreatitis without infection or necrosis, unspecified pancreatitis type Take 1 capsule by mouth three times a day with meals. 90 capsule 2 12/03/2023 10/27/2024 Discontinued Start: 04-22-2023 End: 12-01-2023 take 2 capsules by mouth three times daily at mealtime veivzb-dicjcnfy-heknekk (CREON 3) 3,000-9,500- 15,000 unit delayed release capsule Indications: Acute pancreatitis without infection or necrosis, unspecified pancreatitis type Take 2 capsules by mouth three times daily with meals. 180 capsule 2 04/22/2023 12/01/2023 Discontinued Start: 03-11-2023 End: 04-22-2023 take 1 capsule by mouth three times daily at mealtime troajl-srwfjili-yorceff (CREON 3) 3,000-9,500- 15,000 unit delayed release capsule Indications: Acute pancreatitis without infection or necrosis, unspecified pancreatitis type Take 1 capsule by mouth three times daily with meals. 90 capsule 2 03/11/2023 04/22/2023 Discontinued Comment on above: Take 1 capsule by mo [facility] three times daily with meals. Take 2 capsules by m outh three times daily with meals. Take 1 capsule by mo uth three times a day with meals. ARIPiprazole 10 mg oral tablet (20 sources) Atypical Antipsychotic Start: 01-16-20 End: 12-03-19 take 1 tablet by mouth once daily Aripiprazole 10 mg tablet Discontinued 10 mg PO DAILY October 25, 2023 1:00am December 02, 2024 10:01am DEPRESSION benzonatate 100 mg oral capsule (20 sources) Non-narcotic Antitussive Start: 06-20-20 End: 06-20-20 take 1-2 capsules by mouth three times [...] on above: Take 1 capsule by mo ut three times daily as needed. Take 1 capsule by mo ut three times daily as needed for cough. Take 2 capsules by m out three times a day as needed for up to 10 days. Take 1 capsule by mo ut three times a day as needed for cough. brompheniramine maleate 0.4 mg/ml / dextromethorphan hydrobromide 2 mg/ml / pseudoephedrine hydrochloride 6 mg/ml oral solution (11 sources) alpha-Adrenergic Agonist, Uncompetitive E-pqndpr-Z-aspartate Receptor Antagonist, Sigma-1 Agonist Start: 07-28-20 End: 10-03-19 take 5 mL by mouth four times daily as needed Brompheniramine-Pse udoeph-DM (BROMFED DM) 2-30-10 mg/5 mL syrup Indications: Acute cough Take 5 mL by mouth four times a day as needed. 120 mL 07/28/2024 10/03/2024 Discontinued (Course of therapy completed) Start: 09-10-2023 End: 10-09-2023 take 10 mL by mouth every six hours as needed Sknkadeqqcgvfld-Mzbqgdxcd-DW (BROMFED DM ) 2-30-10 mg/5 mL syrup Take 10 mL by mouth four times a day as needed. 118 mL 0 10/09/2023 Active Comment on above: Take 10 mL by mouth four times a day as needed. budesonide 3 mg delayed release oral capsule (3 sources) Corticosteroid Start: End: take 3 capsules by mouth once daily Budesonide 3 mg capsule,delayed,exte nd.release Discontinued 9 mg PO DAILY 90 0 January 26, 2024 12:00am February 09, 2024 8:44am buPROPion hydrochloride 75 mg oral tablet (8 sources) Aminoketone Start: End: take 1 tablet by mouth once daily buPROPion (WELLBUTRIN) 75 mg tablet Take 75 mg by mouth once daily. 06/21/2016 05/13/2022 Discontinued (Other) Comment on above: Take 75 mg by mouth once daily. busPIRone hydrochloride 10 mg oral tablet (20 sources) Start: End: take 1 tablet by mouth twice daily busPIRone (BUSPAR) 10 mg tablet Take 10 mg by mouth twice daily. 09/12/2020 05/13/2022 Discontinued (Other) Comment on above: Take 10 mg by mouth twice daily. calcium chloride 0.0014 meq/ml / potassium chloride 0.004 meq/ml / sodium chloride 0.103 meq/ml / sodium lactate 0.028 meq/ml injectable solution (1 source) Start: End: Intravenous, at 75 mL/hr, CONTINUOUS, Starting Thu10/07/19 at 1315, For 4 days, Post-op ceFAZolin 2000 mg injection (1 source) Cephalosporin Antibacterial Start: End: ceFAZolin (ANCEF) 2 g in dextrose 4 % 100 mL IVPB (premix) cefTRIAXone sodium 1 g in dextrose 5 % 50 mL IVPB (add-vantage) (1 source) Start: 1 g, Intravenous, EVERY 24 HOURS, First dose on 09/03/19 at 1130, Until Discontinued cetirizine hydrochloride 10 mg oral tablet (20 sources) Histamine-1 Receptor Antagonist Start: End: take 1 tablet by mouth once daily cetirizine (ZYRTEC) 10 mg tablet Indications: Rash and nonspecific skin eruption Take 1 tablet by mouth once daily. for itching. 30 tablet 01/19/2024 07/11/2024 Discontinued ciprofloxacin 500 mg oral tablet (8 sources) Quinolone Antimicrobial Start: End: take 1 tablet by mouth twice daily Ciprofloxacin Hcl 500 mg tablet Discontinued 500 mg PO TWICE A DAY 10 5 0 June 13, 2024 12:00am December 02, 2024 10:01am Start: 01-16-2024 End: 02-23-2024 take 1 tablet by mouth twice daily Ciprofloxacin Hcl 500 mg tablet Discontinued 500 mg PO TWICE A DAY 14 0 January 16, 2024 12:00am February 23, 2024 9:57am codeine phosphate 2 mg/ml / guaiFENesin 20 mg/ml oral solution (8 sources) Opioid Agonist Start: 06-16-2024 End: 06-23-2024 take 10 mL by mouth three times [...] mg/ml oral solution (7 sources) Phenothiazine, Uncompetitive F-fxldcv-F-aspartate Receptor Antagonist, Sigma-1 Agonist Start: 07-18-20 End: [...] Discontinued Start: 10-09-2019 take 1 capsule by [facility] twice daily as needed for constipation docusate [...] (FLONASE) 50 mcg/actuation nasal spray Use 1 [place] in each nostril twice daily. Rinse mouth [...] mouth once daily. [place] [facility] [place] Start: 06-10-2024 End: 07-11-2024 [place] [facility] [place]: Acute left ankle pain For left ankle. 1 Each 06/10/2024 07/11/2024 Discontinued Start: 06-10-2024 [place]ACE[place] [facility] [place]ications: Acute left ankle pain For left [...] every 3 hours as needed for pain. LORazepam 0.5 mg oral tablet (20 sources) Benzodiazepine Start: 10-25-2023 End: 12-02-2024 take 1 tablet by mouth once daily as needed for anxiety Lorazepam 0.5 mg tablet Discontinued 0.5 mg PO DAILY as needed for ANXIETY 7 0 January 26, 2024 11:05am December 02, 2024 10:02am Start: 02-10-2023 End: 12-03-2023 take 1 tablet by mouth once daily Lorazepam (Ativan) 1 mg Tablet Discontinued 1 mg PO DAILY February 10, 2023 12:00am December 03, 2023 4:44pm lubiprostone 0.008 mg oral capsule (7 sources) Chloride Channel Activator Start: 01-21-2021 End: 05-13-2022 take 1 capsule by mouth twice daily at mealtime lubiprostone (AMITIZA) 8 mcg capsule Take 1 capsule by mouth twice daily with meals. 60 capsule 2 01/21/2021 05/13/2022 Discontinued (Other) Comment on above: Take 1 capsule by [facility] twice daily with meals. meclizine hydrochloride 25 mg oral tablet (13 sources) Antiemetic Start: 05-08-2021 End: 06-26-2022 take 1 tablet by mouth three times daily meclizine (ANTIVERT) 25 mg tab Indications: Dizziness , History of vertigo Take 1 tablet by mouth three times daily. 90 tablet 05/08/2021 06/26/2022 Discontinued Comment on above: Take 1 tablet by nick three times daily. mecobalamin 1 mg chewable [...] food. 30 tablet 1 01/01/2024 03/11/2024 Discontinued mesalamine 1200 mg delayed release oral tablet (20 sources) Aminosalicylate Start: 02-09-2024 End: 12-02-2024 take 2 tablets by mouth once daily Mesalamine 1.2 gram tablet,delayed release (DR/EC) Discontinued 2.4 g PO DAILY 60 30 1 February 09, 2024 12:00am December 02, 2024 10:02am End: 10-27-2024 Mesalamine (LIALDA) 1.2 gram EC tablet Take 1,200 mg by mouth once daily. 10/27/2024 Discontinued metaxalone 800 mg oral tablet (4 sources) Start: 09-19-2016 End: 09-30-2019 metaxalone (SKELAXIN) 800 MG tablet Take 800 mg by mouth 0 09/19/2016 09/30/2019 Discontinued (LIST CLEANUP) 1 ml morphine sulfate 4 mg/ml cartridge (9 sources) Opioid Agonist Start: 02-24-2025 End: 02-24-2025 take 1 dose by mouth every hour 4 mg, IntraVENous, Once, On Thu02/24/25 at [...] 1 TABLET BY MOUTH EVERYDAY AT BEDTI CO omeprazole 20 mg delayed release oral tablet [...] Comment on above: Take 1 capsule by [facility] twice daily. ondansetron 4 mg disintegrating oral tablet (20 sources) Serotonin-3 Receptor Antagonist Start: 12-27-2024 End: 12-27-2024 take 4 mg by mouth once 4 mg, Oral, Once, On Thu12/27/24 at 1540, For 1 dose Start: 12-15-2024 End: 12-15-2024 4 mg, IntraVENous, Once, On Evelyn 12/15/24 at 0125, For 1 dose Start: 12-12-2024 End: 12-12-2024 4 mg, IntraVENous, Once, On Thu12/12/24 at 1520, For 1 dose Start: 12-12-2024 End: 12-15-2024 take 1 tablet by mouth every six hours ondansetron (Zofran) 4 MG tablet Take 1 tablet (4 mg) by mouth every 6 hours for 3 days. 12 tablet 12/12/2024 12/15/2024 Active Start: 10-04-2024 End: 12-02-2024 ondansetron ODT (Zofran-ODT) 4 MG disintegrating tablet 4 mg. 12/05/2024 Active Start: 04-10-2022 End: 12-03-2023 take 1 tablet by mouth every eight hours as needed for nausea Ondansetron 4 mg tablet,disintegrating Discontinued 4 mg PO EVERY 8 HOURS NEEDED as needed for Nausea 10 0 April 01, 2023 12:00am December 03, 2023 [...] needed for Pain Score 6-10 15 3 0 December 04, 2023 February 23, 2024 9:58am Abdominal pain Unspecified abdominal pain Start: 02-12-2020 End: 02-13-2020 take 2 tablets by mouth every four hours as needed for pain Oxycodone 5 MG tablet Discontinued 10 mg PO EVERY 4 HOURS NEEDED as needed for severe pain 60 5 February 12, 2020 February 09, 2020 12:00am February 13, 2020 12:02am Acute pancreatitis Acute pancreatitis without necrosis or infection, unspecified Start: 02-05-2020 End: 02-13-2020 take 10 mg [...] release tablet 5 mg polyethylene glycol 3350 24025 mg powder for oral solution (4 sources) [...] Comment on above: Take 1 capsule by [facility] three times daily for 90 days. prochlorperazine [...] tab(s), 0 Refill(s), 03/21/23 14:43:00 EDT, Pharmacy: [facility]/pharmacy #[id number], 155, cm, 03/15/23 11:21:00 EDT, Height Start [...] 16, 2020 12:00am February 05, 2020 8:22am DEPRESSION Start: 01-15-2020 End: 02-23-2024 take 50-100 mg by mouth at bedtime Quetiapine 50 mg tablet Discontinued 50 - 100 mg PO AT BEDTIME September 07, 2022 1:00am February 23, 2024 9:58am SLEEP End: 09-30-2019 take 1 tablet by mouth [...] NASAL) 0.65 % nasal spray Use 1 [place] in the nose as needed. 10/18/2024 Active [...] daily. traMADol hydrochloride 50 mg oral tablet (5 sources) Opioid Agonist Start: 01-15-2024 End: 01-20-2024 take 1 tablet by mouth every six hours as needed for pain Tramadol 50 mg tablet Discontinued 50 mg PO EVERY 6 HOURS as needed for pain 20 5 0 January 15, 2024 12:00am January 19, 2024 12:00am January 20, 2024 12:06am traZODone hydrochloride 50 mg oral tablet (20 sources) Serotonin Reuptake Inhibitor Start: 02-23-2024 End: 12-07-2024 take 1 tablet by mouth at bedtime Trazodone 50 mg tablet Discontinued 50 mg PO AT BEDTIME February 23, 2024 12:00am December 02, 2024 10:02am Start: 01-02-2016 End: 06-26-2022 take 1 tablet by mouth once daily at bedtime traZODone (DESYREL) 100 mg tablet Take 100 mg by mouth daily at bedtime. 01/02/2016 06/26/2022 Discontinued Comment on above: Take 100 mg by mouth daily at bedtime. vitamin b12 1 mg oral tablet (20 [...] [Allergy status to analgesic agent status] Onset: Episodic Anxiety disorders (20 sources) Anxiety; Translations: [Anxiety disorder, unspecified] Onset: 6 06-25-2021 Chronic Asthma (20 sources) Exacerbation of moderate persistent asthma; Translations: [Moderate persistent asthma with (acute) exacerbation] Onset: 4 Chronic Bacterial infection; unspecified site (1 source) Other specified bacterial agents as the cause of diseases classified elsewhere; Translations: [BV (bacterial vaginosis)] Onset: 5 Episodic Calculus of urinary tract (20 sources) Kidney stone; Translations: [Ureteric stone] Onset: 8 02-06-2015 Episodic Chronic obstructive pulmonary disease and bronchiectasis [...] source) Hemorrhoids; Translations: [Unspecified hemorrhoids] 02-14-2025 Episodic Immunizations and screening for infectious disease (4 sources) Viral screening status; Translations: [Encounter for screening for other viral diseases] Episodic Inflammatory diseases of female pelvic organs [...] Candidiasis; Translations: [Candidiasis, unspecified] Onset: 5 Episodic Nausea and vomiting (20 sources) Nausea and vomiting; Translations: [Nausea with vomiting, unspecified] Onset: 0 Resolved: 5 05-25-2020 Episodic Noninfectious gastroenteritis (20 sources) Chronic diarrhea; [...] vitamins] Episodic Other aftercare (2 sources) Other care home (current) drug therapy; Translations: [Other 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] Onset: 4 Episodic Other [...] leg] 11-19-2020 Episodic Other connective tissue disease (3 sources) Pain in lower limb; Translations: [Pain in leg, unspecified] 02-25-2024 Episodic Other disorders of stomach and duodenum (7 sources) Gastroparesis syndrome; Translations: [Gastroparesis] 12-26-2023 Episodic [...] diseases of the female genital tract] Onset: Episodic Other gastrointestinal disorders (20 sources) Diarrhea; Translations: [Diarrhea, unspecified] 04-18-2022 Episodic Other gastrointestinal disorders (20 sources) Abdominal bloating; Translations: [Abdominal distension (gaseous)] 11-18-2022 Episodic Other gastrointestinal disorders (14 sources) History of pancreatitis; Translations: [Personal history of other diseases of the digestive system] 12-03-2023 Episodic Other gastrointestinal disorders (1 source) Constipation alternates with diarrhea; Translations: [Other specified symptoms and signs involving the digestive system and abdomen] 12-07-2024 Episodic Other infections; including parasitic (1 source) Infection by Trichomonas; Translations: [Trichomoniasis, unspecified] Onset: Episodic Other infections; including parasitic (1 source) Trichomoniasis, unspecified; Translations: [Trichomoniasis, unspecified] Onset: Episodic Other inflammatory condition of skin (1 [...] physical injury and trauma] 11-30-2024 Episodic Other liver diseases (1 source) Disease [...] [Acute bronchospasm] 08-06-2022 Episodic Other upper respiratory disease (1 source) Nasal congestion; Translations: [Nasal congestion] Onset: 5 Episodic Other upper respiratory infections (5 sources) Chronic sinusitis; Translations: [Chronic sinusitis, unspecified] Chronic Other upper respiratory infections (15 sources) Upper respiratory infection; Translations: [Acute upper respiratory infection, unspecified] Episodic Otitis media and related conditions (3 sources) Acute suppurative otitis media without spontaneous rupture of ear drum; Translations: [Acute suppurative otitis media without spontaneous rupture of ear drum, bilateral] 10-17-2024 Episodic Pancreatic disorders (not diabetes) (5 sources) Chronic pancreatitis; Translations: [Other chronic pancreatitis] Onset: 4 03-30-2023 Chronic Maia-; endo-; and myocarditis; cardiomyopathy (except that [...] use] Onset: 3 Episodic Residual codes; unclassified (9 sources) H/O: vertigo; Translations: [Personal history of other specified conditions] 12-09-2023 Episodic Residual codes; unclassified (2 sources) Acquired absence of both cervix and uterus; Translations: [Acquired absence of both cervix and uterus] Onset: 4 Episodic Residual codes; unclassified (1 source) Acquired absence of ovaries, bilateral; Translations: [Acquired absence of ovaries, bilateral] Onset: 5 Episodic Screening and history of mental health and substance abuse codes (20 sources) Ex-smoker; Translations: [Personal history of nicotine dependence] Onset: 2 Resolved: 5 Episodic Skin and subcutaneous tissue infections (1 source) Cellulitis; Translations: [Cellulitis, unspecified] Onset: 1 Episodic Spondylosis; intervertebral disc disorders; other back problems (20 sources) Chronic low back pain; Translations: [Low back pain] Onset: 6 Resolved: 5 11-19-2016 Episodic Sprains and strains (20 sources) Strain [...] of right knee 11-30-2024 Unclassified (1 source) Acute cough; Translations: [Acute cough] Onset: 4 Unclassified (1 source) Subacute cough; Translations: [Subacute cough] Onset: 4 Unclassified (1 source) Low back pain, unspecified; Translations: [Low back pain, unspecified] Onset: 5 Urinary tract infections (20 sources) Urinary tract infectious disease; Translations: [Urinary tract infection, site not specified] Onset: 4 08-02-2020 Episodic Viral infection (20 sources) Disease caused by 2019-nCoV; Translations: [COVID-19] Onset: 2 Resolved: 3 10-07-2021 Episodic Past or Other Problems Problem Classification Problem Date Documented Da te Episodic/Chronic Abdominal pain (20 sources) Abdominal pain; Translations: [Unspecified abdominal pain] Onset: 08-08-2015 Resolved: 10-27-2024 Episodic Blindness and vision defects (20 sources) Blurring of visual image; Translations: [Other visual disturbances] Onset: 02-23-2017 Resolved: 10-27-2024 02-23-2017 Episodic Cancer of uterus (20 sources) History of malignant neoplasm of uterine body; Translations: [Personal history of malignant neoplasm of other parts of uterus] Onset: 09-14-2006 12-14-2019 Episodic Diabetes mellitus without complication (20 sources) Impaired fasting glycemia; Translations: [Impaired fasting glucose] Onset: 05-17-2008 Resolved: 12-01-2023 11-19-2010 Episodic Miscellaneous mental health disorders (20 sources) Acute insomnia; Translations: [Adjustment insomnia] Onset: 03-31-2016 03-31-2016 Episodic Open wounds of head; neck; and trunk (20 sources) Open wound of left breast; Translations: [Unspecified open wound of left breast, subsequent encounter] Onset: 01-19-2023 Resolved: 10-27-2024 Episodic Other aftercare (1 source) 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 0.1-1.4 [facility] Comment on above: Performed By: #### C BC, ADIFF, ANEU, MDW, LIP, GFR, CMP #### [address] [address] Monocytes/100 WBC (Bld) 5.7 % Normal 2.0-13.0 [facility] Comment on above: Performed By: #### C BC, ADIFF, ANEU, MDW, LIP, GFR, CMP #### [address] [address] Neutrophils/100 WBC (Bld) 60.7 % Normal 50.0-75.0 [facility] Comment on above: Performed By: #### C BC, ADDELBERT, ANEU, MDW, LIP, GFR, CMP #### [address] [address] .GFRon 02-23-2025 Estimated Glomerular Filtration Rate 69 ml/min/1.73sqm Normal [facility] Comment on above: Result Comment: Stages [...] eGFR results. Performed By: #### C BC, ADIFF, ANEU, MDW, LIP, GFR, CMP #### [address] [address] .MDWon 02-23-2025 Monocyte Distribution Width 19.74 Normal 0.00-20.00 [facility] Comment on above: Result Comment: For ED adult patients suspected of sepsis, MDW<=20.0 does not rule out sepsis or risk of sepsis Performed By: #### C BC, ADIFF, ANEU, MDW, LIP, GFR, CMP #### [place] [address] .NEUABSon 02-23-2025 Neutrophil, Absolute 5.1 10 3/mcL Normal 2.3-8.[address] [facility] Comment on above: Performed By: #### C BC, LETICIA, ANEU, MDW, LIP, GFR, CMP #### [place] [address] CBCon 02-23-2025 Erythrocyte distribution width (RBC) [Ratio] 13.6 % Normal 11.5-15.5 [facility] Comment on above: Performed By: #### C BC, LETICIA, ANEU, MDW, LIP, GFR, CMP #### [place] [address] Hematocrit (Bld) [Volume fraction] 41.5 % Normal 34.0-46.0 [facility] Comment on above: Performed By: #### C BC, LETICIA, ANEU, MDW, LIP, GFR, CMP #### [place] [address] Hgb 13.8 G/dL Normal 12.0-16.0 [facility] Comment on above: Performed By: #### C BC, LETICIA, ANEU, MDW, LIP, GFR, CMP #### [place] [address] MCH (RBC) [Entitic mass] 29.9 pg Normal 27.0-33.0 [facility] Comment on above: Performed By: #### C BC, LETICIA, ANEU, MDW, LIP, GFR, CMP #### [place] [address] MCHC 33.3 G/dL Normal 32.0-36.0 [facility] Comment on above: Performed By: #### C BC, LETICIA, ANEU, MDW, LIP, GFR, CMP #### [place] [address] MCV (RBC) [Entitic vol] 89.8 fL Normal 80.0-99.0 [facility] Comment on above: Performed By: #### C BC, LETICIA, ANEU, MDW, LIP, GFR, CMP #### [address] [address] Platelet 241 10 3/mcL Normal 150-450 [facility] Comment on above: Performed By: #### C BC, ADIFF, ANEU, MDW, LIP, GFR, CMP #### [address] [address] Platelet mean volume (Bld) [Entitic vol] 8.8 fL Normal 6.6-10.5 [facility] Comment on above: Performed By: #### C BC, LETICIA, ANEU, MDW, LIP, GFR, CMP #### [address] [address] RBC 4.62 10 6/mcL Normal 4.10-5.30 [facility] Comment on above: Performed By: #### C BC, LETICIA, ANEU, MDW, LIP, GFR, CMP #### [address] [address] WBC 8.4 10 3/mcL Normal 4.5-10.8 [facility] Comment on above: Performed By: #### C BC, LETICIA, ANEU, MDW, LIP, GFR, CMP #### [address] [address] CMPon 02-23-2025 Albumin Level 4.1 G/dL Normal 3.5-5.0 [facility] Comment on above: Performed By: #### C BC, LETICIA, ANEU, MDW, LIP, GFR, CMP #### [address] [address] Albumin/Globulin [Mass ratio] 1.1 {ratio} Normal 1.1-2.5 [facility] Comment on above: Performed By: #### C BC, ADIFF, ANEU, MDW, LIP, GFR, CMP #### [address] [address] ALP [Catalytic activity/Vol] 138 U/L High 40-135 [facility] Comment on above: Performed By: #### C BC, ADIFF, ANEU, MDW, LIP, GFR, CMP #### [address] [address] ALT [Catalytic activity/Vol] 25 U/L Normal 14-59 [facility] Comment on above: Performed By: #### C BC, ADIFF, ANEU, MDW, LIP, GFR, CMP #### [address] [address] AST [Catalytic activity/Vol] 15 U/L Normal 10-40 [facility] Comment on above: Performed By: #### C BC, ADIFF, ANEU, MDW, LIP, GFR, CMP #### [address] [address] Bili Total 0.5 mg/dL Normal 0.2-1.0 [facility] Comment on above: Result Comment: Use of this assay is not recommended for patients undergoing treatment with eltrombopag due to the potential for falsely elevated results. Performed By: #### C BC, ADIFF, ANEU, MDW, LIP, GFR, CMP #### [address] [address] BUN/Creatinine Ratio 11 ratio Normal 7-27 [facility] Comment on above: Performed By: #### C BC, ADIFF, ANEU, MDW, LIP, GFR, CMP #### [address] [address] Calcium [Mass/Vol] 9.3 mg/dL Normal 8.4-10.2 [facility] Comment on above: Performed By: #### C BC, ADIFF, ANEU, MDW, LIP, GFR, CMP #### [address] [address] Chloride [Moles/Vol] 103 mmol/L Normal 98-107 [facility] Comment on above: Performed By: #### C BC, ADIFF, ANEU, MDW, LIP, GFR, CMP #### [address] [address] CO2 [Moles/Vol] 27 mmol/L Normal 22-29 [facility] Comment on above: Performed By: #### C BC, LETICIA, ANEU, MDW, LIP, GFR, CMP #### [address] [address] Creatinine [Mass/Vol] 1.02 mg/dL High 0.51-0.95 [facility] Comment on above: Performed By: #### C BC, ADIFF, ANEU, MDW, LIP, GFR, CMP #### [address] [address] Electrolyte Balance 9.0 mEq/L Normal 4.0-15.0 [facility] Comment on above: Performed By: #### C BC, ADDELBERT, ANEU, MDW, LIP, GFR, CMP #### [address] [address] Globulin 3.9 G/dL Normal 2.7-4.4 [facility] Comment on above: Performed By: #### C BC, ADIFF, ANEU, MDW, LIP, GFR, CMP #### [address] [address] Glucose [Mass/Vol] 104 mg/dL Normal 70-105 [facility] Comment on above: Performed By: #### C BC, ADIFF, ANEU, MDW, LIP, GFR, CMP #### [address] [address] Potassium [Moles/Vol] 4.1 mmol/L Normal 3.5-5.1 [facility] Comment on above: Performed By: #### C BC, ADIFF, ANEU, MDW, LIP, GFR, CMP #### [address] [address] Sodium [Moles/Vol] 139 mmol/L Normal 136-145 [facility] Comment on above: Performed By: #### C BC, ADIFF, ANEU, MDW, LIP, GFR, CMP #### [place] [id number] Total Protein 8.0 G/dL Normal 6.4-8.2 [facility] Comment on above: Performed By: #### C LETICIA DELUCA ANEU, MDW, LIP, GFR, CMP #### [place] [id number] [place], [place] [address] Urea nitrogen [Mass/Vol] 11 mg/dL Normal 7-18 [facility] Comment on above: Performed By: #### C LETICIA DELUCA ANEU, MDW, LIP, GFR, CMP #### [facility] [address] [place], [place] [address] CNPNon 02-23-2025 CNPN Telephone (INTMWS) -------- SALLY VARGAS ([id number]) 1980 F Date Time Provider Department 02/23/25 [facility] INTTOÑITO During your visit today, we recorded the following information about you: Chanell Friedman, RN 02/23/2025 8:47 AM Addendum Pt was seen on 02/14/25 by Merced Hutchinson. She was seen for abd pain, difficulty urinating and foul smelling vaginal discharge. Pt called in again on 02/16/25 reporting worsening symptoms. 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 Went over these instructions with pt who is very angry and yelled several times that she is not going back to the ER because they won't do anything for her. Asked pt if she contacted her weaving professor provider. Pt states she did and they [...] reports that she was seen yesterday at [facility] ER and had a CT scan [...] and patient hangs up. VIN Townsend Rosa, ASHLYN.SALES MERCHANDISING SPECIALIST 02/27/2025 9:03 AM Signed She really does need to follow up with weaving professor, I'm not sure if she could get something set up with [facility] weaving professor sooner. Ashlyn Recio RN 02/27/2025 1:10 PM Signed Pt called and is notified of providers message and instructions. Pt voices understanding. She states she went to the [place] ER and and she has an appointment with her OBGYN. Ashlyn Recio RN Allergies As of Date: 02/23/2025 [...] Date Reviewed: 02/14/2025 Reviewed by: Merced Hutchinson APRN.SALES MERCHANDISING SPECIALIST - Fully Assessed Reason for Visit: Continued [...] [facility]. (more content not included)... Normal [facility] CT ABDOMEN/PELVIS W/O CONTRA STon [...] 02/23/2025 9:53:48 AM Ordering Provider: ETHAN Guardado [facility] LABORATORYOrdered By: SYSTEM SYSTEM on 02-23-2025 [...] 02-23-2025 Lipase Level 37 U/L Normal 16-77 [facility] Comment on above: Performed By: #### C BC, ADIFF, ANEU, MDW, LIP, GFR, CMP #### [place] [id number] [place], [place] [address] No Panel Informationon 02-23 Culture Urine Specimen received in lab. [facility] Work Phone: PREGUon 02-23-2025 HCG ( test) Ql (U) Negative Normal [facility] Comment on above: Performed By: #### U A, UAMICAO #### [address] [address] test (u) int Not detected Invalid Interpretation Code [facility] Comment on above: Performed By: #### U A, UAMICAO #### [address] [address] UAon 02-23-2025 Color (U) Yellow Normal [facility] Comment on above: Performed By: #### U A, UAMICAO #### [address] [address] Glucose (U) [Mass/Vol] Negative Normal Negative [facility] Comment on above: Performed By: #### U A, UAMICAO #### [address] [address] Ketones Ql (U) Negative Normal Negative [facility] Comment on above: Performed By: #### U A, UAMICAO #### [place] [address] UA Appear Clear Normal Clear [facility] Comment on above: Performed By: #### U A, UAMICAO #### [address] [address] UA Blood Trace Normal Negative [facility] Comment on above: Performed By: #### U A, UAMICAO #### [address] [address] UA Leuk Est Large Abnormal Negative [facility] Comment on above: Performed By: #### U A, UAMICAO #### [address] [address] UA Nitrite Negative Normal Negative [facility] Comment on above: Performed By: #### U A, UAMICAO #### [address] [address] UA pH 6.5 Normal 5.0 - 8.0 [facility] Comment on above: Performed By: #### U A, UAMICAO #### [place] [address] UA Protein Negative Normal Negative [facility] Comment on above: Performed By: #### U A, UAMICAO #### [place] [address] UA Spec Grav <=1.005 Abnormal 1.015-1.025 [facility] Comment on above: Performed By: #### U A, UAMICAO #### [place] [address] UA Urobilinogen 0.2 E.U./dL Normal 0.2-1.0 [facility] Comment on above: Performed By: #### U A, UAMICAO #### [place] [address] Urobilinogen (U) [Mass/Vol] Negative Normal Negative [facility] Comment on above: Performed By: #### U A, UAMICAO #### [place] [address] UA Specimen Type Clean Catch Normal [facility] Comment on above: Performed By: #### U A, UAMICAO #### [address] [address] UAMICon 02-23-2025 UA Bacteria Trace Abnormal Negative [facility] Comment on above: Performed By: #### U A, UAMICAO #### [address] [address] UA RBC 0-2 Normal 0-2 [facility] Comment on above: Performed By: #### U A, UAMICAO #### [place] [address] UA Squam Epithelial 3-5 Normal 0-20 [facility] Comment on above: Performed By: #### U A, UAMICAO #### [place] [address] UA WBC 10-20 Abnormal 0-5 [facility] Comment on above: Performed By: #### U Hanna UAJOSE EDUARDO #### [facility] [address] [place], [place] [address] LABORATORYOrdered By: Eric England on 02-19-2025 Appearance [...] 02-19 Culture Urine Specimen received in lab. [facility] Work Phone: PREGUon 02-19-2025 HCG ( test) Ql (U) Negative Normal [facility] Comment on above: Performed By: #### U A, UAMICAO #### [place] [address] test (u) int Not detected Invalid Interpretation Code [facility] Comment on above: Performed By: #### U A, UAMICAO #### [place] [address] UAon 02-19-2025 Color (U) Yellow Normal [facility] Comment on above: Performed By: #### U A, UAMICAO #### [place] [address] Glucose (U) [Mass/Vol] Negative Normal Negative [facility] Comment on above: Performed By: #### U A, UAMICAO #### [place] [address] Ketones Ql (U) Negative Normal Negative [facility] Comment on above: Performed By: #### U A, UAMICAO #### [place] [address] UA Appear Clear Normal Clear [facility] Comment on above: Performed By: #### U A, UAMICAO #### [place] [address] UA Blood Small Abnormal Negative [facility] Comment on above: Performed By: #### U A, UAMICAO #### [place] [address] UA Leuk Est Large Abnormal Negative [facility] Comment on above: Performed By: #### U A, UAMICAO #### [place] [address] UA Nitrite Negative Normal Negative [facility] Comment on above: Performed By: #### U A, UAMICAO #### [address] [address] UA pH 6.0 Normal 5.0 - 8.0 [facility] Comment on above: Performed By: #### U A UAMICAO #### [address] [address] UA Protein Negative Normal Negative [facility] Comment on above: Performed By: #### U A UAMICAO #### [place] [address] UA Spec Grav 1.010 Abnormal 1.015-1.025 [facility] Comment on above: Performed By: #### U Hanna UAMICAO #### [place] [address] UA Specimen Type Not Given Normal [facility] Comment on above: Performed By: #### U Hanna UAMICAO #### [place] [address] UA Urobilinogen 0.2 E.U./dL Normal 0.2-1.0 [facility] Comment on above: Performed By: #### Sandrine Ferreira UAMICAO #### [place] [address] Urobilinogen (U) [Mass/Vol] Negative Normal Negative [facility] Comment on above: Performed By: #### U Hanna UAMICAO #### [place] [address] UAMICon 02-19-2025 UA Bacteria 2+ /hpf Abnormal Negative [facility] Comment on above: Performed By: #### U A UAMICAO #### [place] [address] UA RBC 5-10 Abnormal 0-2 [facility] Comment on above: Performed By: #### U A UAMICAO #### [place] [address] UA Squam Epithelial 3-5 Normal 0-20 [facility] Comment on above: Performed By: #### U A, UAMICAO #### [facility] [address] [place], [place] [address] UA Trichomonas Present Abnormal [facility] Comment on above: Performed By: #### U A, UAMICAO #### [facility] [address] [place], [place] [address] UA WBC 25-50 Abnormal 0-5 [facility] Comment on above: Performed By: #### U A, UAMICAO #### [facility] [address] [place], [place] [address] [place] 02-16-2025 CNPN Telephone (INTMWS) -------- SALLY VARGAS ([id number]) 1980 F Date Time Provider Department 02/16/25 [...] worse. Pt reports she went to the [place] ER the same night she went in to see Merced Hutchinson INORGANIC CHEMIST because of the pain. She states they [...] below for further detail. VIN Hood Rosa, APRN.SALES MERCHANDISING SPECIALIST 02/17/2025 8:35 AM Signed If pain is that severe and not able to urinate then agree, she needs to return to ER or contact her weaving professor provider. Since she has been on treatment for a few days, please get an update on how she is feeling/doing today. Ashlyn Recio RN 02/17/2025 11:10 AM Signed Pt called and is notified of providers message and instructions. Pt states she feels the same way. She is in pain and can't pee. She states,I'm not going to [facility] they think I'm just there for pain [...] catheter inserted unless they put me out. [facility] ER will not do anything for me. Patient did state that she still has yet to urinate and made comment that she was trying to make money. Call ended before suggestion could be made to visit [place] or [place] ER. Ivanna Torre RN 02/17/2025 1:00 PM Signed Patient calls back to let provider know that she will go to the ER only if provider herself calls to say she is coming and to tell the ER staff that she is in pain and she doesn't need a catheter. Patient plans to go to [facility] ER. Attempted to discuss further with patient and she disconnected the line. VIN Hood Rosa, APRN.CNP 02/17/2025 2:45 PM Signed Okay with whatever [...] Date Reviewed: 02/14/2025 Reviewed by: Merced Hutchinson APRN.SALES MERCHANDISING SPECIALIST - Fully Assessed Reason for Visit: Patient Update [1234] Prescriptions as of 02/17/2025 - nitrofurantoin monohydrate and macrocrystal (MACROBID) 100 mg capsule Take 1 capsule by mouth two times a day. - metroNIDAZOLE (FLAGYL) 500 mg tablet Take 1 tablet by mouth two times a day for 7 days. - (more content not included)... Normal [facility] Bacteria Ur Culton Bacteria identified Cx Nom (U) ORGANISM ID: 1 <10,000 CFU/ml Normal urogenital pilar Streptococcus agalactiae (Group B streptococcus) was identified in this specimen, which is clinically relevant if the individual is . Normal [facility] Comment on above: Performed By: #### 6 30-4 ####[facility] LABCLIA [id number] [address] [place] [facility] CBC + DIFFon 02-14-2025 Baso # 0.01 x10EE3/UL Normal 0.00 - 0.10 [facility] Comment on above: Performed By: #### 2 [address] ####[facility],[address] [place] [address] Basophils/100 WBC (Bld) 0.1 % Normal 0.0 - 2.0 [facility] Comment on above: Performed By: #### 2 [address] ####[facility],[address] [place] [address] CBC + DIFF Normal [facility] Comment on above: Result Comment: CBC- COMPLETE BLOOD COUNT Performed By: #### 2 [address] ####[facility],[address] [place] [address] EO # 0.08 x10EE3/UL Normal 0.00 - 0.50 [facility] Comment on above: Performed By: #### 2 [address] ####[facility],[address] [place] [address] Eosinophils/100 WBC (Bld) 0.7 % Normal 0.0 - 7.0 [facility] Comment on above: Performed By: #### 2 [address] ####[facility],[address] [place] [address] Erythrocyte distribution width (RBC) [Ratio] 13.0 % Normal 12.0 - 15.6 [facility] Comment on above: Performed By: #### 2 [address] ####[facility],[address] [place] [address] Hematocrit (Bld) [Volume fraction] 39.8 % Normal 34.0 - 46.0 [facility] Comment on above: Performed By: #### 2 [address] ####[facility],[address] [place] [place] [address] Hemoglobin (Bld) [Mass/Vol] 13.9 g/dL Normal 12.0 - 16.0 [facility] Comment on above: Performed By: #### 2 49752 ####[facility],[address] [place] [address] Lymph # 1.11 x10EE3/UL Normal 0.80 - 2.80 [facility] Comment on above: Performed By: #### 2 89787 ####[facility],[address] [place] [address] Lymphocytes/100 WBC (Bld) 10.6 % Low 20.0 - 45.0 [facility] Comment on above: Performed By: #### 2 58437 ####[facility],[address] [place] [address] MANUAL DIFF N/A Normal [facility] Comment on above: Performed By: #### 2 09285 ####[facility],[address] [place] [address] MCH (RBC) [Entitic mass] 31 pg Normal 27 - 33 [facility] Comment on above: Performed By: #### 2 37019 ####[facility],[address] [place], [place] [id number] MCHC 35 X10 3 Normal 32 - 36 [facility] Comment on above: Performed By: #### 2 86801 ####[facility],[address] [place] [address] 41002 MCV (RBC) [Entitic vol] 89 fL Normal 80 - 99 [facility] Comment on above: Performed By: #### 2 91975 ####[facility],[address] [place] [address] Bacon # 0.09 x10EE3/UL Low 0.20 - 1.00 [facility] Comment on above: Performed By: #### 2 75207 ####[facility],[address] [place] [address] 96129 MONOS % 0.9 % Normal 0.0 - 10.0 [facility] Comment on above: Performed By: #### 2 53360 ####[facility],[address] [place] [address] 21808 Morphology Adrian (Bld) [Interp] N/A Normal [facility] Comment on above: Performed By: #### 2 23555 ####[facility],[address] [place] [address] 63328 Neut # 9.15 x10EE3/UL High 1.50 - 7.10 [facility] Comment on above: Performed By: #### 2 63994 ####[facility],[address] [place] [address] 42948 Neutrophils/100 WBC (Bld) 87.7 % High 46.0 - 76.0 [facility] Comment on above: Performed By: #### 2 89563 ####[facility],[address] [place] [address] 38421 PLATELET 275 x10EE3/UL Normal 150 - 450 [facility] Comment on above: Performed By: #### 2 39643 ####[facility],[address] [place] [address] 89171 Platelet mean volume (Bld) [Entitic vol] 9.5 fL Normal 6.6 - 10.5 [facility] Comment on above: Result Comment: AUTO MATED DIFFERENTIAL Performed By: #### 2 54113 ####[facility],[address] [place] [address] 32378 RBC 4.46 x 10EE6/UL Normal 4.10 - 5.30 [facility] Comment on above: Performed By: #### 2 59275 ####[facility],[address] [place] [address] 50950 WBC 10.4 x 10EE3/UL Normal 4.5 - 10.8 [facility] Comment on above: Performed By: #### 2 86707 ####[facility],[address] [place] [address] 57445 CMP with eGFRon 02-14-2025 AGE 44 years Normal [facility] Comment on above: Performed By: #### 2 13549 ####[facility],[address] [place] [address] 60213 Albumin [Mass/Vol] 4.0 g/dL Normal 3.4 - 5.0 [facility] Comment on above: Performed By: #### 2 28961 ####[facility],[address] [place], [place] [phone] Albumin/Globulin [Mass ratio] 0.9 {ratio} Normal 0.9 - 1.6 [facility] Comment on above: Performed By: #### 2 93370 ####[facility],[address] [place], [place] [id number] ALK PHOS 141 U/L High 46 - 116 [facility] Comment on above: Performed By: #### 2 15957 ####[facility],[address] [place] [address] 32101 ALT [Catalytic activity/Vol] 26 U/L Normal 16 - 63 [facility] Comment on above: Performed By: #### 2 17481 ####[facility],[address] [place] [address] 43148 Anion gap [Moles/Vol] 17 mmol/L Normal 10 - 20 [facility] Comment on above: Performed By: #### 2 60510 ####[address] [address] AST [Catalytic activity/Vol] 30 U/L Normal 13 - 39 [facility] Comment on above: Performed By: #### 2 33248 ####[address] [address] B/C RATIO 11 ratio Normal 0 - 30 [facility] Comment on above: Performed By: #### 2 59079 ####[facility],[address] [place] [address] 19740 Bilirubin [Mass/Vol] 0.7 mg/dL Normal 0.2 - 1.0 [facility] Comment on above: Performed By: #### 2 31379 ####[facility],[address] [place] [address] Calcium [Mass/Vol] 9.7 mg/dL Normal 8.5 - 10.1 [facility] Comment on above: Performed By: #### 2 86321 ####[facility],[address] [place], [place] [phone] Chloride [Moles/Vol] 105 mmol/L Normal 98 - 107 [facility] Comment on above: Performed By: #### 2 35553 ####[facility],[address] [place] [address] CMP with eGFR Normal [facility] Comment on above: Result Comment: COMP REHENSIVE METABOLIC PANEL Performed By: #### 2 24231 ####[facility],[address] [place] [address] 33341 CO2 [Moles/Vol] 23.3 mmol/L Normal 21.0 - 32.0 [facility] Comment on above: Performed By: #### 2 73218 ####[facility],[address] [place], [place] [phone] Creatinine [Mass/Vol] 1.08 mg/dL High 0.55 - 1.02 [facility] Comment on above: Performed By: #### 2 20866 ####[facility],[address] [place] [address] 23812 eGFR 55 ML/MINUTE Low 60 - 999 [facility] Comment on above: Performed By: #### 2 35558 ####[facility],[address] [place] [address] 82470 GFR/1.73 sq M.predicted among non-blacks MDRD (S/P/Bld) [Vol rate/Area] mL/min/{1.73_m2} Normal 60 - 999 [facility] Comment on above: Result Comment: ACCO RDING TO THE NATIONAL KIDNEY DISEASE EDUCATION PROGRAM(NKDE), A NORMAL eGFRIS A VALUE GREATER THAN OR EQUAL TO 60 ML/MIN/1.73 SQ METERS.CHRONIC KIDNEY DISEASE: <60mL/MIN/1.73 SQ METERSKIDNEY FAILURE: <15mL/MIN/1.73 SQ METERSTHIS TEST SHOULD ONLY BE USED FOR PATIENTS 18 YEARS OF AGE AND OLDER. Performed By: #### 2 95413 ####[address] [address] Globulin (S) [Mass/Vol] 4.3 g/dL High 1.5 - 3.8 [facility] Comment on above: Performed By: #### 2 29983 ####[address] [address] Glucose [Mass/Vol] 142 mg/dL High 74 - 106 [facility] Comment on above: Performed By: #### 2 76198 ####[address] [address] Potassium [Moles/Vol] 4.4 mmol/L Normal 3.5 - 5.1 [facility] Comment on above: Performed By: #### 2 19029 ####[address] [address] Protein [Mass/Vol] 8.3 g/dL High 6.4 - 8.2 [facility] Comment on above: Performed By: #### 2 50932 ####[address] [address] Sodium [Moles/Vol] 141 mmol/L Normal 136 - 145 [facility] Comment on above: Performed By: #### 2 83428 ####[address] [place] [address] Urea nitrogen [Mass/Vol] 12 mg/dL Normal 7 - 18 [facility] Comment on above: Performed By: #### 2 27193 ####[facility],[address] [place] [address] 61988 CNCOon 02-14-2025 CNCO Letter Text Normal [facility] CNOVon 02-14-2025 CNOV Office Visit (INTMWS ) -------- SALLY VARGAS ([id number]) 1980 F Date Time Provider Department 02/14/25 11:20 AM MERCED HUTCHINSON INTMWS During your visit today, we recorded the following information about you: Pulse Blood pressure Weight 82/minute 128/76 90.7 kg Merced Hutchinson APRN.SALES [employer]CH[employer]ISING SPECIALIST 02/14/2025 11:38 AM Signed SUBJECTIVE Sally Vargas [...] On Thursday, Sally attempted to work at [employer] but had to leave early due to [...] NASAL) 0.65 % nasal spray Use 1 [place] in the nose as needed. etodolac (LODINE) [...] ups. Patient (more content not included)... Normal [facility] ED MED ADMINISTRATION DETAIL on 02-14-2025 ED MED ADMINISTRATION DETAIL Normal [facility] ED NURSES CLINICAL NOTEon ED NURSES CLINICAL NOTE Normal [facility] ED ORDER SHEET (CPOE ONLY)on 02-14-2025 ED ORDER SHEET (CPOE ONLY) Normal [facility] ED PHYSICIAN CLINICAL REPORT on 02-14-2025 ED PHYSICIAN CLINICAL REPORT Normal [facility] ED SUPER BILLon 02-14-2025 ED SUPER BILL Normal [facility] ED VISIT SUMMARYon ED VISIT SUMMARY Normal [facility] ED VITALS FLOW SHEETon 02-14 ED VITALS FLOW SHEET Normal [facility] LACTATEon 02-14-2025 Lactate [Moles/Vol] 1.6 mmol/L Normal 0.4 - 2.0 [facility] Comment on above: Performed By: #### 2 10853 ####[facility],[address] [place] [address] UA DIP, URINE (POC)on 2024 BILIRUBIN UA (POCT) Negative Negative [facility] CLARITY UA (POCT) Cloudy [facility] COLOR UA (POCT) Light yellow [facility] GLUCOSE UA (POCT) Negative Negative mg/dL [facility] Hemoglobin Ql (U) Trace-intact Abnormal Negative [facility] Interpretation and review of laboratory results Abnormal [facility] KETONE UA (POCT) Negative Negative mg/dL [facility] LEUKOCYTES UA (POCT) Large Abnormal Negative [facility] NITRITE UA (POCT) Negative Negative [facility] PH UA (POCT) 6 4.5 - 8.[address] [facility] Protein Ql (U) Negative Negative mg/dL [facility] SPECIFIC GRAVITY UA (POCT) 1.01 1.005 - 1.[address] [facility] UROBILINOGEN UA (POCT) 0.2 Nataly l E.U./dL [facility] Location:[facility], [address] [place] [address], [place], [place], [id number] [place] [address] POINT OF CARE [facility] URINALYSISon 02-14-2025 Amorphous NONE Normal [facility] Comment on above: Performed By: #### 2 68679 ####[facility],[address] [place] [address] Bacteria 2+ Normal [facility] Comment on above: Result Comment: TRIC HOMONAS PRESENT Performed By: #### 2 55505 ####[facility],[address] [place] [address] Bilirubin Ql (U) Negative Normal NORMAL: NEGATIVE [facility] Comment on above: Performed By: #### 2 34400 ####[facility],[address] [place] [address] Casts NONE Normal [facility] Comment on above: Performed By: #### 2 09232 ####[facility],[address],[place] [address] Clarity (U) very cloudy Normal NORMAL: CLEAR [facility] Comment on above: Performed By: #### 2 71416 ####[facility],[address] [place] [address] 54554 Color (U) yellow Normal NORMAL: YELLOW [facility] Comment on above: Performed By: #### 2 12470 ####[facility],[address] [place] [address] 99909 Crystals LM Nom (Urine sed) NONE Normal [facility] Comment on above: Performed By: #### 2 08429 ####[facility],[address] [place] [address] 72499 Epi Cells MODERATE Normal [facility] Comment on above: Performed By: #### 2 95110 ####[facility],[address] [place] [address] 54932 Glucose Ql (U) NORM Normal NORMAL: NORMAL [facility] Comment on above: Performed By: #### 2 08025 ####[facility],[address] [place] [address] 12599 Hemoglobin Ql (U) 10 Abnormal NORMAL: NEGATIVE [facility] Comment on above: Performed By: #### 2 33550 ####[facility],[address] [place] [address] 45618 Ketone Negative Normal NORMAL: NEGATIVE [facility] Comment on above: Performed By: #### 2 87933 ####[facility],[address] [place] [address] 21977 Leukocytes 500 Abnormal NORMAL: NEGATIVE [facility] Comment on above: Performed By: #### 2 79797 ####[facility],[address] [place] [address] 69977 Mucous 1+ Normal [facility] Comment on above: Performed By: #### 2 48315 ####[facility],[address] [place] [address] 13505 Nitrite Ql (U) Negative Normal NORMAL: NEGATIVE [facility] Comment on above: Performed By: #### 2 30741 ####[facility],[address] [place], [place] [phone] pH (U) 6 [pH] Normal NORMAL: 5.0-8.0 [facility] Comment on above: Performed By: #### 2 63651 ####[facility],[address] [place] [address] Protein Ql (U) 30 Abnormal NORMAL: NEGATIVE [facility] Comment on above: Performed By: #### 2 87719 ####[facility],[address] [place] [address] Rbc 35-50 Normal 0-3/hpf [facility] Comment on above: Performed By: #### 2 24650 ####[facility],[address] [place] [address] Sp [place] 1.015 Normal NORMAL: 1.010-1.030 [facility] Comment on above: Performed By: #### 2 16232 ####[facility],[address] [place] [address] Specimen Type R Normal [facility] Comment on above: Performed By: #### 2 94976 ####[facility],[address] [place] [address] Urinalysis dipstick W Reflex Microscopic panel (U) SEE BELOW Normal [facility] Comment on above: Result Comment: MICR OSCOPIC Performed By: #### 2 56677 ####[facility],[address] [place], [place] [phone] Urobilinog NORM Normal NORMAL: NORMAL [facility] Comment on above: Performed By: #### 2 87920 ####[facility],[address] [place] [address] Wbc 26-50 Normal 0-5/hpf [facility] Comment on above: Performed By: #### 2 63907 ####[facility],[address] [place] [address] Yeast NONE Normal [facility] Comment on above: Performed By: #### 2 01780 ####[facility],[address] [place] [address] ED MED ADMINISTRATION DETAIL on 02-07-2025 ED MED ADMINISTRATION DETAIL Normal [facility] ED NURSES CLINICAL NOTEon ED NURSES CLINICAL NOTE Normal [facility] ED ORDER SHEET (CPOE ONLY)on 02-07-2025 ED ORDER SHEET (CPOE ONLY) Normal [facility] ED PHYSICIAN CLINICAL REPORT on 02-07-2025 ED PHYSICIAN CLINICAL REPORT Normal [facility] ED SUPER BILLon 02-07-2025 ED SUPER BILL Normal [facility] ED VISIT SUMMARYon ED VISIT SUMMARY Normal [facility] ED VITALS FLOW SHEETon 02-07 ED VITALS FLOW SHEET Normal [facility] ED MED ADMINISTRATION DETAIL on 01-20-2025 ED MED ADMINISTRATION DETAIL Normal [facility] ED NURSES CLINICAL NOTEon ED NURSES CLINICAL NOTE Normal [facility] ED ORDER SHEET (CPOE ONLY)on 01-20-2025 ED ORDER SHEET (CPOE ONLY) Normal [facility] ED PHYSICIAN CLINICAL REPORT on 01-20-2025 ED PHYSICIAN CLINICAL REPORT Normal [facility] ED SUPER BILLon 01-20-2025 ED SUPER BILL Normal [facility] ED VISIT SUMMARYon ED VISIT SUMMARY Normal [facility] ED VITALS FLOW SHEETon 01-20 ED VITALS FLOW SHEET Normal [facility] CBC + DIFFon 01-19-2025 Baso # 0.02 x10EE3/UL Normal 0.00 - 0.10 [facility] Comment on above: Performed By: #### 2 23292 ####[facility],[address] [place] [address] Basophils/100 WBC (Bld) 0.2 % Normal 0.0 - 2.0 [facility] Comment on above: Performed By: #### 2 66199 ####[facility],[address] [place] [address] 79508 CBC + DIFF Normal [facility] Comment on above: Result Comment: CBC- COMPLETE BLOOD COUNT Performed By: #### 2 05694 ####[facility],[address] [place] [address] 06275 EO # 0.24 x10EE3/UL Normal 0.00 - 0.50 [facility] Comment on above: Performed By: #### 2 26355 ####[facility],[address] [place] [address] 48056 Eosinophils/100 WBC (Bld) 2.1 % Normal 0.0 - 7.0 [facility] Comment on above: Performed By: #### 2 07234 ####[facility],[address] [place], [place] [phone] Erythrocyte distribution width (RBC) [Ratio] 12.9 % Normal 12.0 - 15.6 [facility] Comment on above: Performed By: #### 2 56165 ####[facility],[address] [place] [address] 13218 Hematocrit (Bld) [Volume fraction] 38.2 % Normal 34.0 - 46.0 [facility] Comment on above: Performed By: #### 2 02668 ####[facility],[address] [place] [address] 30388 Hemoglobin (Bld) [Mass/Vol] 13.5 g/dL Normal 12.0 - 16.0 [facility] Comment on above: Performed By: #### 2 79231 ####[facility],[address] [place] [address] 06316 Lymph # 3.01 x10EE3/UL High 0.80 - 2.80 [facility] Comment on above: Performed By: #### 2 04096 ####[facility],[address] [place] [address] 11672 Lymphocytes/100 WBC (Bld) 26.4 % Normal 20.0 - 45.0 [facility] Comment on above: Performed By: #### 2 64721 ####[facility],[address] [place] [address] MANUAL DIFF N/A Normal [facility] Comment on above: Performed By: #### 2 65509 ####[facility],[address] [place] [address] MCH (RBC) [Entitic mass] 32 pg Normal 27 - 33 [facility] Comment on above: Performed By: #### 2 20977 ####[facility],[address] [place] [address] MCHC 35 X10 3 Normal 32 - 36 [facility] Comment on above: Performed By: #### 2 41590 ####[facility],[address] [place] [address] MCV (RBC) [Entitic vol] 90 fL Normal 80 - 99 [facility] Comment on above: Performed By: #### 2 62306 ####[facility],[address] [place] [address] Bacon # 0.64 x10EE3/UL Normal 0.20 - 1.00 [facility] Comment on above: Performed By: #### 2 81848 ####[facility],[address] [place] [address] MONOS % 5.7 % Normal 0.0 - 10.0 [facility] Comment on above: Performed By: #### 2 35319 ####[facility],[address] [place], [place] [phone] Morphology Adrian (Bld) [Interp] N/A Normal [facility] Comment on above: Performed By: #### 2 59464 ####[facility],[address] [place] [address] Neut # 7.46 x10EE3/UL High 1.50 - 7.10 [facility] Comment on above: Performed By: #### 2 51013 ####[facility],[address] [place] [address] 47424 Neutrophils/100 WBC (Bld) 65.6 % Normal 46.0 - 76.0 [facility] Comment on above: Performed By: #### 2 98607 ####[facility],[address] [place] [address] 70324 PLATELET 289 x10EE3/UL Normal 150 - 450 [facility] Comment on above: Performed By: #### 2 99966 ####[facility],[address] [place] [address] 20732 Platelet mean volume (Bld) [Entitic vol] 8.7 fL Normal 6.6 - 10.5 [facility] Comment on above: Result Comment: AUTO MATED DIFFERENTIAL Performed By: #### 2 55419 ####[facility],[address] [place] [address] 19871 RBC 4.25 x 10EE6/UL Normal 4.10 - 5.30 [facility] Comment on above: Performed By: #### 2 31925 ####[facility],[address] [place] [address] 18023 WBC 11.4 x 10EE3/UL High 4.5 - 10.8 [facility] Comment on above: Performed By: #### 2 80700 ####[facility],[address] [place] [address] 42444 CMP with eGFRon 01-19-2025 AGE 44 years Normal [facility] Comment on above: Performed By: #### 2 41901 ####[facility],[address] [place] [address] 42887 Albumin [Mass/Vol] 4.0 g/dL Normal 3.4 - 5.0 [facility] Comment on above: Performed By: #### 2 35596 ####[facility],[address] [place] [address] 28095 Albumin/Globulin [Mass ratio] 1.0 {ratio} Normal 0.9 - 1.6 [facility] Comment on above: Performed By: #### 2 72999 ####[facility],[address] [place] [address] 26512 ALK PHOS 136 U/L High 46 - 116 [facility] Comment on above: Performed By: #### 2 00654 ####[facility],[address] [place] [address] 24802 ALT [Catalytic activity/Vol] 22 U/L Normal 16 - 63 [facility] Comment on above: Performed By: #### 2 25515 ####[facility],[address] [place] [address] 89972 Anion gap [Moles/Vol] 12 mmol/L Normal 10 - 20 [facility] Comment on above: Performed By: #### 2 66908 ####[facility],[address] [place] [address] 94068 AST [Catalytic activity/Vol] 11 U/L Low 13 - 39 [facility] Comment on above: Performed By: #### 2 83042 ####[facility],[address] [place] [address] 17378 B/C RATIO 9 ratio Normal 0 - 30 [facility] Comment on above: Performed By: #### 2 54414 ####[facility],[address] [place] [address] 32932 Bilirubin [Mass/Vol] 0.5 mg/dL Normal 0.2 - 1.0 [facility] Comment on above: Performed By: #### 2 02992 ####[facility],[address] [place] [address] 85447 Calcium [Mass/Vol] 9.2 mg/dL Normal 8.5 - 10.1 [facility] Comment on above: Performed By: #### 2 03615 ####[facility],[address] [place] [address] 30963 Chloride [Moles/Vol] 107 mmol/L Normal 98 - 107 [facility] Comment on above: Performed By: #### 2 12257 ####[address] [address] CMP with eGFR Normal [facility] Comment on above: Result Comment: COMP REHENSIVE METABOLIC PANEL Performed By: #### 2 41893 ####[facility],[address] [place], [place] [id number] CO2 [Moles/Vol] 25.3 mmol/L Normal 21.0 - 32.0 [facility] Comment on above: Performed By: #### 2 03884 ####[place] [address] Creatinine [Mass/Vol] 1.12 mg/dL High 0.55 - 1.02 [facility] Comment on above: Performed By: #### 2 98044 ####[facility],[address] [place] [address] eGFR 53 ML/MINUTE Low 60 - 999 [facility] Comment on above: Performed By: #### 2 07657 ####[place] [id number] GFR/1.73 sq M.predicted among non-blacks MDRD (S/P/Bld) [Vol rate/Area] mL/min/{1.73_m2} Normal 60 - 999 [facility] Comment on above: Result Comment: ACCO RDING TO THE NATIONAL KIDNEY DISEASE EDUCATION PROGRAM(NKDE), A NORMAL eGFRIS A VALUE GREATER THAN OR EQUAL TO 60 ML/MIN/1.73 SQ METERS.CHRONIC KIDNEY DISEASE: <60mL/MIN/1.73 SQ METERSKIDNEY FAILURE: <15mL/MIN/1.73 SQ METERSTHIS TEST SHOULD ONLY BE USED FOR PATIENTS 18 YEARS OF AGE AND OLDER. Performed By: #### 2 18855 ####[facility],[address] [place], [place] [phone] Globulin (S) [Mass/Vol] 3.9 g/dL High 1.5 - 3.8 [facility] [place] [facility] Comment on above: Performed By: #### 2 94150 ####[facility],[address] [place], [place] [phone] Glucose [Mass/Vol] 103 mg/dL Normal 74 - 106 [facility] Comment on above: Performed By: #### 2 65979 ####[facility],[address] [place] [address] Potassium [Moles/Vol] 3.7 mmol/L Normal 3.5 - 5.1 [facility] Comment on above: Performed By: #### 2 81914 ####[facility],[address] [place], [place] [id number] Protein [Mass/Vol] 7.9 g/dL Normal 6.4 - 8.2 [facility] Comment on above: Performed By: #### 2 17619 ####[facility],[address] [place], [place] [id number] Sodium [Moles/Vol] 141 mmol/L Normal 136 - 145 [facility] Comment on above: Performed By: #### 2 77350 ####[facility],[address] [place] [address] Urea nitrogen [Mass/Vol] 10 mg/dL Normal 7 - 18 [facility] Comment on above: Performed By: #### 2 82161 ####[facility],[address] [place], [place] [id number] CT ABDOMEN/PELVIS WOon 01-19 CT ABDOMEN/PELVIS WO Normal [facility] LIPASEon 01-19-2025 Lipase [Catalytic activity/Vol] 50.0 U/L Normal 15.0 - 78.0 [facility] Comment on above: Result Comment: *PLE ASE NOTE THAT RANGES FOR LIPASE HAVE CHANGED OF 09/11/23 DUE TO AN ASSAYUPDATE BY THE SENIOR ACCOUNTING CLERK.THE NEW ASSAY RANGE IS 6-250 U/L, WITH A REFERENCERANGE OF 16-77 U/L. Performed By: #### 2 29876 ####[facility],[address] [place] [address]195 URINALYSISon 01-19-2025 Amorphous NONE Normal [facility] Comment on above: Performed By: #### 2 19917 ####[facility],[address] [place], [place] [id number] Bacteria 3+ Normal [facility] Comment on above: Performed By: #### 2 89405 ####[facility],[address] [place], [place] [id number] Bilirubin Ql (U) Negative Normal NORMAL: NEGATIVE [facility] Comment on above: Performed By: #### 2 32621 ####[facility],[address] [place], [place] [id number] Casts NONE Normal [facility] Comment on above: Performed By: #### 2 65075 ####[facility],[address] [place], [place] [id number] Clarity (U) clear Normal NORMAL: CLEAR [facility] Comment on above: Performed By: #### 2 67661 ####[facility],[address] [place], [place] [id number] Color (U) p.yel Normal NORMAL: YELLOW [facility] Comment on above: Performed By: #### 2 07142 ####[facility],[address] [place], [place] [id number] Crystals LM Nom (Urine sed) NONE Normal [facility] Comment on above: Performed By: #### 2 04123 ####[facility],[address] [place], [place] [id number] Epi Cells MANY Normal [facility] Comment on above: Performed By: #### 2 77343 ####[facility],[address] [place], [place] [id number] Glucose Ql (U) NORM Normal NORMAL: NORMAL [facility] Comment on above: Performed By: #### 2 05642 ####[facility],[address] [place] [address] Hemoglobin Ql (U) 25 Abnormal NORMAL: NEGATIVE [facility] Comment on above: Performed By: #### 2 47066 ####[facility],[address] [place] [address]44 Ketone Negative Normal NORMAL: NEGATIVE [facility] Comment on above: Performed By: #### 2 84162 ####[facility],[address] [place] [address]10 Leukocytes 100 Abnormal NORMAL: NEGATIVE [facility] Comment on above: Performed By: #### 2 14737 ####[facility],[address] [place] [address]384 Mucous NONE Normal [facility] Comment on above: Performed By: #### 2 06288 ####[facility],[address] [place] [address] 38175 Nitrite Ql (U) Negative Normal NORMAL: NEGATIVE [facility] Comment on above: Performed By: #### 2 99768 ####[facility],[address] [place] [address] 35902 pH (U) 6 [pH] Normal NORMAL: 5.0-8.0 [facility] Comment on above: Performed By: #### 2 28998 ####[facility],[address] [place] [address]405 Protein Ql (U) Negative Normal NORMAL: NEGATIVE [facility] Comment on above: Performed By: #### 2 87738 ####[facility],[address] [place] [address]155 Rbc NONE Normal 0-3/hpf [facility] Comment on above: Performed By: #### 2 49187 ####[facility],[address] [place] [address] 32111 Sp [place] 1.010 Normal NORMAL: 1.010-1.030 [facility] Comment on above: Performed By: #### 2 23858 ####[facility],[address] [place] [address] Specimen Type R Normal [facility] Comment on above: Performed By: #### 2 13984 ####[facility],[address] [place], [place] [id number] Urinalysis dipstick W Reflex Microscopic panel (U) SEE BELOW Normal [facility] Comment on above: Result Comment: MICR OSCOPIC Performed By: #### 2 32852 ####[facility],[address] [place], [place] [id number] Urobilinog NORM Normal NORMAL: NORMAL [facility] Comment on above: Performed By: #### 2 32499 ####[facility],[address] [place] [address] Wbc 1-5 Normal 0-5/hpf [facility] Comment on above: Performed By: #### 2 02858 ####[facility],[address] [place] [address] Yeast NONE Normal [facility] Comment on above: Performed By: #### 2 02150 ####[facility],[address] [place], [place] [id number] Office Visiton 12-29-2024 Follow-up visit [id number] Tanner Vargas 1980 F Date Provider Department Center 12/29/2024 SUNNY BUI [facility]i Family History Problem Relation Age of Onset Other Mother Comments: blood clots Hyperlipidemia Mother High Blood Pressure Mother Family Status - Relation Status Age at Mother Alive Paternal Grandfather Paternal Grandmother Maternal Grandmother Alive Father Alive Maternal Grandfather Alive Level of Service:21276 [place] OFFICE/OUTPATIENT ESTABLISHED MOD MDM 30 MIN Reason for Visit and Comments: Follow-up [381694] - ED follow up ED visit 12/27 for chronic pelvic pain Hysterectomy BSO in 2006 for suspected endometriosis Restarted oral estrogen for HRT Percocet not helping with pain Normal [facility] Progress Noteon 12-29-2024 Progress Note Chief [...] Dr. Palacios. Op notes reviewed, (2016)There was extensive scar tissue with some thickening [...] up in about 4 weeks (around 01/26/2025). [place] [address]on 12-27-2024 36 Noted. Patient in ED. [facility] 36 Name of Caller: Giovanna Vargas Contact Reason for Appointment: Patient returning call from office. Advised patient the Dr would like her to schedule an appointment, see triage 12.27.24. Patient states I'm already in the emergency department. Put patient on hold to schedule and patient hung up Office Name: [facility] Medication Refills need, if any: n/a Medication Name: n/a [place] [address] Called and Lvm to schedule another appointment with Dr. Story to discuss other options for pelvic pain for treatment [place] [address] Reviewed [place] [address] Name of caller: Giovanna molina Contact phone number: [phone] Relationship to Patient: patient Provider: Kimberly Practice: [facility]BG[facility] Chief Complaint/Reason for Call: Patient states she was told to go to the ER and she wants Dr. Story to know that she is there for abdominal pain. Best time of day caller can be reached: PM Patient advised that office/PCP has 24-48 business hours to return their call: No Normal [facility] 36 Message sent to provider. Normal [facility] 36 Called earlier today and spoke to charger operator helper, states nurse was supposed to leave message [...] her pain there. Can also ask about [facility] financial assistance during registration process, to see if she would be eligible for that to assist with financial cost of being seen. Patient also advised she can sign up for [facility] Financial assistance through her Mychart. RN sent new code via text message for patient to sign up. Patient states she has [employer] through [facility]. Advised she would need to create a new account for [facility] providers, but would be able to access financial assistance application through there as well. Patient states I do not use [employer]. Again advised, she wouldn't have to use it frequently, but could get financial assistance process started. Patient disconnected call. RN will send TE to Dr. Story's office to update. Normal [facility] 36 The patient has been in [...] wants this handled by Dr. Story only. [facility] ED Provider Noteon ED Provider Note EMERGENCY [...] and was supposed to follow-up with her PRESS MANAGER, Dr. Story. Was attempting to make an [...] and excision of left pelvic sidewall HYSTERECTOMY 2007 BSO for endometrisos LAPAROSCOPY DIAGNOSTIC / BIOPSY [...] by mouth every 12 hours. HYDROcodone-acetaminophe n (Raymond) 5-325 MG tablet Dose = 1 tab(s), [...] Problem Relation Name Age of Onset Other (30226) Mother blood clots Hyperlipidemia Mother High Blood [...] Resource Strain: Patient Declined (12/14/2023) Received from [facility] Overall Financial Resource Strain (CARDIA) Difficulty of Paying Living Expenses: Patient declined Food Insecurity: Pa (more content not included)... [facility] Office Visiton 12-21-2024 Follow-up visit [id number] SamTanner faith 1980 F Date Provider Department Center 12/21/2024 SUNNY BUI [facility] Offi Family History Problem Relation Age of Onset Other Mother Comments: blood clots Hyperlipidemia Mother High Blood Pressure Mother Family Status - Relation Status Age at Mother Alive Paternal Grandfather Paternal Grandmother Maternal Grandmother Alive Father Alive Maternal Grandfather Alive Level of Service:40209 [place] OFFICE/OUTPATIENT NEW LOW MDM 30 MINUTES Reason for Visit and Comments: New Patient [542] - Re-establishing care, ED follow up 3 recent ED visits for chronic lower abdominal pain and spotting CT and US completed Hysterectomy BSO in 2006 for suspected endometriosis No longer on oral estrogen- having hot flashes [facility] Progress Noteon 12-21-2024 Progress Note Sally Vargas [...] Problem Relation Name Age of Onset Other (89674) Mother blood clots Hyperlipidemia Mother High Blood [...] Resource Strain: Patient Declined (12/14/2023) Received from [facility] Overall Financial Resource Strain (CARDIA) Difficulty of Paying Living Expenses: Patient declined Food Insecurity: Patient Declined (12/14/2023) Received from [facility] Hunger Vital Sign Worried About Running Out of Food in the Last Year: Patient declined Ran Out of Food in the Last Year: Patient declined Transportation Needs: Patient Declined (12/14/2023) Received from [facility] PRAPARE - Transportation Lack of Transportation (Medical): Patient declined Lack of Transportation (Non-Medical): Patient declined Physical Activity: Patient Declined (12/14/2023) Received from [facility] Exercise Vital Sign Days of Exercise per Week: Patient declined Minutes of Exercise per Session: Patient declined Stress: No Stress Concern Present (11/15/2020) Received from [facility], [facility] of Occupational Health - Occupational Stress Questionnaire Feeling of Stress : Only a little Social Connections: Unknown (12/14/2023) Received from [facility] Social Connection and Isolation Panel [NHANES] Frequency of Communication with Friends and Family: Not on file Frequency of Social Gatherings with Friends and Family: Not on file Attends Jainism Services: Not on file Active Member of Clubs or Organizations: Patient declined Attends Club or Organization Meetings: Not on file Marital Status: Patient declined Intimate Partner Violence: Not on file Housing Stability: Patient Declined (12/14/2023) Received from [facility] Housing Stability Vital Sign Unable to Pay [...] by mouth every 12 hours. HYDROcodone-acetaminophe n (Raymond) 5-325 MG tablet Dose = 1 tab(s), Oral, q6h, PRN for pain, tab(s), 0 Refill(s), 95.1 metoclopramide (Reglan) 10 MG tablet Take 1 tablet (10 mg) by mouth every 6 hours for 7 days. 28 tablet 0 ondansetron ODT (Zofran-ODT) 4 MG disintegrating tablet 4 mg. pantoprazole (ProtoNix) 40 MG EC tablet Take 40 mg (more content not included)... [facility] 36on 12-20-2024 36 S: Patient spoke wit h [facility] nurse seeking a sooner appointment with Dr. [...] 2 hours Protocols used: Abdominal Pain - ADULT-[facility] 36on 12-19-2024 36 Patient wanting [facility] location. Appt scheduled [facility] 36 S: Caller spoke with [facility] nurse regarding lower abdominal pain and nausea. B: Onset of symptoms/concern: Not an established patient A: Caller states she has gone to the ED three (3) times for this issue, has an appointment on Thursday but is looking for something sooner, was told by her PCP that she needs to see her PRESS MANAGER for her chronic abdominal pain. Caller denies pelvic pain. R: Caller advised I am unable to get her seen sooner and needs to keep her appointment as scheduled on 12/21/24 to re-establish care. Reason for Disposition Abdominal pain is a chronic symptom (recurrent or ongoing AND lasting > 4 weeks) Protocols used: Abdominal Pain - ADULT-[facility] 36on 12-17-2024 36 S Patient calling wi th pelvic [...] prescribed pain meds. Will be going to [facility]. Patient would benefit from sooner appt if possible. Thank you Reason for Disposition [1] SEVERE pain (e.g., excruciating) AND [2] present > 1 hour Protocols used: Abdominal Pain - ADULT-[facility] Normal [facility] Bacterial vaginosis and vagi nitis rRNA panel Probe (Vag fld)on 12-17-2024 Bacterial vaginosis Ql (Vag fld) [Interp] Detected Abnormal Not Detected [facility] C. glabrata DNA ABRAM+probe Ql (Vag fld) Not detected Not Detected [facility] Pillo sp DNA ABRAM+probe Ql (Vag fld) Not detected Not Detected [facility] Interpretation and review of laboratory results Abnormal [facility] T. vaginalis DNA ABRAM+probe Ql (Vag fld) Not detected Not Detected [facility] Methodology: real-ti me PCR A negative result [...] sexual abuse or for other forensic purposes. [facility] CBC W Auto Differential pane l (Bld)on 12-17-2024 Basophils (Bld) [#/Vol] 0 10*3/uL 0.0 - 0.2 10*3/uL [facility] Basophils/100 WBC (Bld) 0.7 % 0.0 - 2.0 % [facility] Eosinophils (Bld) [#/Vol] 0.2 10*3/uL 0.0 - 0.5 10*3/uL [facility] Eosinophils/100 WBC (Bld) 2.6 % 0.0 - 6.0 % [facility] Erythrocyte distribution width (RBC) [Ratio] 13.2 % 11.5 - 15.0 % [facility] Hematocrit (Bld) [Volume fraction] 39.7 % 35.0 - 47.0 % [facility] Hemoglobin (Bld) [Mass/Vol] 13.2 g/dL 11.7 - 16.0 g/dL [facility] Immature granulocytes (Bld) [#/Vol] 0.1 10*3/uL High NINF - 0.1 10*3/uL [facility] Vitryn Immature granulocytes/100 WBC (Bld) 1 % 0.0 - 2.0 % [facility] Interpretation and review of laboratory results Abnormal [facility] Lymphocytes (Bld) [#/Vol] 2.2 10*3/uL 1.0 - 4.3 10*3/uL [facility] Lymphocytes/100 WBC (Bld) 37.7 % 15.0 - 45.0 % [facility] MCH (RBC) [Entitic mass] 30.3 pg 26.0 - 34.0 pg [facility] MCHC (RBC) [Mass/Vol] 33.2 % 30.5 - 36.0 % [facility] MCV (RBC) [Entitic vol] 91.1 fL 77.0 - 99.0 fL [facility] Monocytes (Bld) [#/Vol] 0.4 10*3/uL 0.0 - 0.9 10*3/uL [facility] Monocytes/100 WBC (Bld) 6.4 % 5.0 - 13.0 % [facility] Neutrophils (Bld) [#/Vol] 3 10*3/uL 1.8 - 7.5 10*3/uL [facility] Neutrophils/100 WBC (Bld) 51.6 % 38.0 - 82.0 % [facility] Nucleated RBC/100 WBC (Bld) [Ratio] 0 % [facility] Platelet mean volume (Bld) [Entitic vol] 10.4 fL 9.0 - 12.7 fL [facility] Comment on above: MPV is a calculated measurement using platelet volume ratio Platelets (Bld) [#/Vol] 248 10*3/uL 140 - 440 10*3/uL [facility] RBC (Bld) [#/Vol] 4.36 10*6/uL 3.80 - 5.2 0 10*6/uL [facility] WBC (Bld) [#/Vol] 5.8 10*3/uL 3.6 - 10.7 10*3/uL [facility] CBC WITH AUTO DIFFERENTIALon 12-17-2024 Basophils (Bld) [#/Vol] 0.0 10*3/uL Normal 0.0-0.2 [facility] Comment on above: Performed By: #### L [id number] ####Supersonic Engineer: SAGE PEPE ([id number])[facility] ([address] [address] [place] Basophils/100 WBC (Bld) 0.7 % Normal 0.0-2.0 [facility] Comment on above: Performed By: #### L [id number] ####Supersonic Engineer: SAGE PEPE ([id number])[facility] ([facility])[address] [place] [address] Eosinophils (Bld) [#/Vol] 0.2 10*3/uL Normal 0.0-0.5 [facility] Comment on above: Performed By: #### L [id number] ####Supersonic Engineer: SAGE PEPE ([id number])[facility] ([facility])[address] [place] [address] Eosinophils/100 WBC (Bld) 2.6 % Normal 0.0-6.0 [facility] Comment on above: Performed By: #### L [id number] ####Supersonic Engineer: SAGE PEPE ([id number])[facility] ([facility])[address] [place] [address] Erythrocyte distribution width (RBC) [Ratio] 13.2 % Normal 11.5-15.0 [facility] Comment on above: Performed By: #### L [id number] ####Supersonic Engineer: SAGE PEPE ([id number])[facility] ([facility])[address] [place] [address] Hematocrit (Bld) [Volume fraction] 39.7 % Normal 35.0-47.0 [facility] Comment on above: Performed By: #### L [id number] ####Supersonic Engineer: SAGE PEPE ([id number])[facility] ([facility])[address] [place] [address] Hemoglobin (Bld) [Mass/Vol] 13.2 g/dL Normal 11.7-16.0 [facility] Comment on above: Performed By: #### L [id number] ####Supersonic Engineer: SAGE [id number])[facility] ([facility])[address] [place] [address] [place] IMMATURE GRANS % 1.0 % Normal 0.0-2.0 [facility] Comment on above: Performed By: #### L [id number] ####Supersonic Engineer: SAGE PEPE ([id number])[facility]ITAL[facility] (SWRL[facility])[address] [place] [address] IMMATURE GRANS ABSOLUTE 0.1 10*3/uL High <0.1 [facility] Comment on above: Performed By: #### L [id number] ####Supersonic Engineer: SAGE PEPE ([id number])[facility]ITALA [facility] ([facility]RL[facility])[address] [place] [address] Lymphocytes (Bld) [#/Vol] 2.2 10*3/uL Normal 1.0-4.3 [facility] Comment on above: Performed By: #### L [id number] ####Supersonic Engineer: SAGE PEPE ([id number])[facility] (SWRL[facility])[address] [place] [address] Lymphocytes/100 WBC (Bld) 37.7 % Normal 15.0-45.0 [facility] Comment on above: Performed By: #### L [id number] ####Supersonic Engineer: SAGE PEPE ([id number])[facility] ([facility])[address] [place] [address] MCH (RBC) [Entitic mass] 30.3 pg Normal 26.0-34.0 [facility] Comment on above: Performed By: #### L [id number] ####Supersonic Engineer: SAGE PEPE ([id number])[facility]ITAL[facility] ([facility]RL[facility])[address] [place] [address] MCHC 33.2 % Normal 30.5-36.0 [facility] Comment on above: Performed By: #### L [id number] ####Supersonic Engineer: SAGE PEPE ([id number])[facility] ([facility]RL[facility])[address] [place] [address] [place] MCV (RBC) [Entitic vol] 91.1 fL Normal 77.0-99.0 [facility] Comment on above: Performed By: #### L [id number] ####Supersonic Engineer: SAGE PEPE ([id number])[facility] ([facility])[address] [place] [address] [place] Monocytes (Bld) [#/Vol] 0.4 10*3/uL Normal 0.0-0.9 [facility] Comment on above: Performed By: #### L [id number] ####Supersonic Engineer: SAGE PEPE ([id number])[facility] ([facility])[address] [place] [address] [place] Monocytes/100 WBC (Bld) 6.4 % Normal 5.0-13.0 [facility] Comment on above: Performed By: #### L [id number] ####Supersonic Engineer: SAGE PEPE ([id number])[facility] ([facility])[address] [place] [address] [place] NEUTROPHILS ABSOLUTE 3.0 10*3/uL Normal 1.8-7.5 [facility] Comment on above: Performed By: #### L [id number] ####Supersonic Engineer: SAGE PEPE ([id number])[facility] ([facility])[address] [place] [address] [place] Neutrophils/100 WBC (Bld) 51.6 % Normal 38.0-82.0 [facility] Comment on above: Performed By: #### L [id number] ####Supersonic Engineer: SAGE PEPE ([id number])[facility] ([facility])[address] [place] [address] [place] NRBC 0.0 /100 WBCs Normal 0.0-2.0 [facility] Comment on above: Performed By: #### L [id number] ####Supersonic Engineer: SAGE PEPE ([id number])[facility]ITAL[facility] (SWRLAB)[address] Platelet mean volume (Bld) [Entitic vol] 10.4 fL Normal 9.0-12.7 [facility] Comment on above: Result Comment: MPV is a calculated measurement using platelet volume ratio Performed By: #### L [id number] ####Supersonic Engineer: SAGE PEPE ([id number])[facility]ITAL[facility] ([facility]RL[facility])[address] [place] [address] Platelets (Bld) [#/Vol] 248 10*3/uL Normal 140-440 [facility] Comment on above: Performed By: #### L [id number] ####Supersonic Engineer: SAGE PEPE ([id number])[facility]ITALHanna OLIVARESTMAN (SWRLAB)[address] [place] [address] [place] RBC (Bld) [#/Vol] 4.36 10*6/uL Normal 3.80-5.20 [facility] Comment on above: Performed By: #### L [id number] ####Supersonic Engineer: SAGE PEPE ([id number])[facility]ITAL[facility] ([facility]RL[facility])[address] [place] [address] WBC (Bld) [#/Vol] 5.8 10*3/uL Normal 3.6-10.7 [facility] Comment on above: Performed By: #### L [id number] ####Supersonic Engineer: SAGE PEPE ([id number])[facility]ITAL[facility] ([facility])[address] [place] [address] CHLAMYDIA/GONORRHEAon 2024 CHLAMYDIA/GONORRHEA NEISSERIA GONORRHOEA E DNA [...] should be collected if clinically indicated. Normal [facility] Comment on above: Performed By: #### L [id number] ####Supersonic Engineer: SAGE PEPE ([id number])[facility] ([facility])[address] [place] [address] COMPLETE URINALYSISon 2024 BACTERIA (#/HPF) IN URINE Moderate Abnormal Negative [facility] Comment on above: Performed By: #### L [id number] #### Supersonic Engineer: SAGE PEPE ([id number]) [facility]ITAL[facility] RODRIGUEZDONTAE RITTMAN (SWRLAB) [address] [place] [address] BILIRUBIN, TOTAL PRESENCE IN URINE Negative Normal Negative [facility] Comment on above: Performed By: #### L [id number] #### Supersonic Engineer: SAGE PEPE ([id number]) [facility]ITAL[facility] RODRIGUEZDONTAE RITTMAN (SWRLAB) [address] [place] [address] Clarity (U) Turbid Abnormal Clear [facility] Comment on above: Performed By: #### L [id number] #### Supersonic Engineer: SAGE PEPE ([id number]) [facility]ITAL[facility] BOBBYDONTAE RITTMAN ([facility]RL[facility]) [address] [place] [address] Color (U) Light Yellow Normal Lt. Yellow [facility] Comment on above: Performed By: #### L [id number] #### Supersonic Engineer: SAGE PEPE ([id number]) [facility]ITAL[facility] RODRIGUEZDONTAE RITTMAN (SWRL[facility]) [address] [place], [place] [address] GLUCOSE (MG/DL) IN URINE Normal Normal Normal (<70) [facility] Comment on above: Performed By: #### L [id number] #### Supersonic Engineer: SAGE PEPE ([id number]) [facility] [place] (SWRLAB) [address] [place] [address] [place] HEMOGLOBIN PRESENCE IN URINE Negative Normal Negative [facility] Comment on above: Performed By: #### L [id number] #### Supersonic Engineer: SAGE PEPE ([id number]) [facility] [place] (SWRLAB) [address] [place] [address] Ketones Ql (U) Negative Normal Negative [facility] Comment on above: Performed By: #### L [id number] #### Supersonic Engineer: SAGE PEPE ([id number]) [facility] [place] (SWRLAB) [address] [place] [address] LEUKOCYTE ESTERASE PRESENCE IN URINE BY TEST STRIP Negative Normal Negative [facility] Comment on above: Performed By: #### L [id number] #### Supersonic Engineer: SAGE PEPE ([id number]) [facility] [place] (SWRLAB) [address] [place] [address] [place] NITRITE PRESENCE IN URINE Negative Normal Negative [facility] Comment on above: Performed By: #### L [id number] #### Supersonic Engineer: SAGE PEPE ([id number]) [facility] [place] (SWRLAB) [address] [place] [address] pH (U) 5.5 [pH] Normal 5.0-8.0 [facility] Comment on above: Performed By: #### L [id number] #### Supersonic Engineer: SAGE PEPE ([id number]) [facility] [place] (SWRLAB) [address] [place] [address] [place] Protein (U) [Mass/Vol] Negative Normal Negative [facility] Comment on above: Performed By: #### L [id number] #### Supersonic Engineer: SAGE PEPE ([id number]) [facility] [place] (SWRLAB) [address] [place] [address] [place] RBC (#/HPF) IN URINE SEDIMENT Negative Normal 0-2 [facility] Comment on above: Performed By: #### L [id number] #### Supersonic Engineer: SAGE PEPE ([id number]) [facility] [place] (SWRLAB) [address] [place] [address] Specific gravity (U) [Rel density] 1.010 Normal 1.005-1.030 [facility] Comment on above: Performed By: #### L [id number] #### Supersonic Engineer: SGAE PEPE ([id number]) [facility] [place] (SWRLAB) [address] [place] [address] Specimen volume (U) 12 mL Normal [facility] Comment on above: Performed By: #### L [id number] #### Supersonic Engineer: SAGE PEPE ([id number]) [facility] [place] (SWRLAB) [address] [place] [address] SQUAMOUS EPITHELIAL CELLS (#/HPF) IN URINE SEDIMENT 6-10 Abnormal 3-5 [facility] Comment on above: Performed By: #### L [id number] #### Supersonic Engineer: SAGE PEPE ([id number]) [facility] [place] (SWRLAB) [address] [place] [address] UROBILINOGEN (MG/DL) IN URINE Normal Normal Normal (0-1) [facility] Comment on above: Performed By: #### L [id number] #### Supersonic Engineer: SAGE PEPE ([id number]) [facility] [place] (SWRLAB) [address] [place] [address] WBC (LEUKOCYTE) (#/HPF) IN URINE SEDIMENT 0-2 Normal 0-5 [facility] Comment on above: Performed By: #### L [id number] #### Supersonic Engineer: SAGE PEPE ([id number]) [facility] [place] (SWRLAB) [address] [place] [address] COMPREHENSIVE METABOLIC PANE Laureano 12-17-2024 Albumin [Mass/Vol] 4.1 g/dL Normal 3.5-5.0 [facility] Comment on above: Performed By: #### L AB99, LAB17 ####Supersonic Engineer: SAGE PEPE ([id number])[facility]ITAL[facility] [place] (SWRLAB)[address] [place] [address] [place] ALP [Catalytic activity/Vol] 120 U/L Normal 40-150 [facility] Comment on above: Performed By: #### L AB99, LAB17 ####Supersonic Engineer: SAGE PEPE ([id number])[facility]ITAL[facility] RODRIGUEZDONTAE RITTMAN (SWRLAB)[address] [place] [address] [place] ALT [Catalytic activity/Vol] 32 U/L High <30 [facility] Comment on above: Performed By: #### L AB99, LAB17 ####Supersonic Engineer: SAGE PEPE ([id number])[facility] [place] (SWRLAB)[address] Anion gap [Moles/Vol] 7 mmol/L Normal 3-13 [facility] Comment on above: Performed By: #### L AB99, LAB17 ####Supersonic Engineer: SAGE PEPE ([id number])[facility] [place] (SWRLAB)[address] [place] [address] [place] AST [Catalytic activity/Vol] 29 U/L Normal <34 [facility] Comment on above: Performed By: #### L AB99, LAB17 ####Supersonic Engineer: SAGE PEPE ([id number])[facility] [place] (SWRLAB)[address] [place] [address] [place] Bilirubin [Mass/Vol] 0.6 mg/dL Normal <1.2 [facility] Comment on above: Performed By: #### L AB99, LAB17 ####Supersonic Engineer: SAGE PEPE ([id number])[facility] [place] (SWRLAB)[address] [place] [address] [place] Calcium [Mass/Vol] 9.4 mg/dL Normal 8.4-10.2 [facility] Comment on above: Performed By: #### L AB99, LAB17 ####Supersonic Engineer: SAGE PEPE ([id number])[facility] [place] (SWRLAB)[address] [place] [address] [place] Chloride [Moles/Vol] 106 mmol/L Normal 98-107 [facility] Comment on above: Performed By: #### L AB99, LAB17 ####Supersonic Engineer: SAGE PEPE ([id number])[facility] [place] (SWRLAB)[address] [place] [address] [place] CO2 [Moles/Vol] 27 mmol/L Normal 22-29 [facility] Comment on above: Performed By: #### L AB99, LAB17 ####Supersonic Engineer: SAGE PEPE ([id number])[facility]ITAL[facility] [place] (SWRLAB)[address] [place] [address] [place] Creatinine [Mass/Vol] 1.04 mg/dL Normal 0.57-1.11 [facility] Comment on above: Performed By: #### L AB99, LAB17 ####Supersonic Engineer: SAGE PEPE ([id number])[facility] [place] (SWRLAB)[address] [place] [address] [place] GLOMERULAR FILTRATION RATE ML/MIN/1.73 SQ M.PREDICTED 67.7 mL/min/1.73m*2 Normal >60.0 [facility] Comment on above: Result Comment: Calc ulation based on the Chronic Kidney Disease Epidemiology Collaboration (CKD-EPI) equation refit without adjustment for race Performed By: #### L AB99, LAB17 ####Supersonic Engineer: SAGE PEPE ([id number])[facility]ITAL[facility] RODRIGUEZDONTAE RITTMAN (SWRLAB)[address] [place] [address] [place] Glucose [Mass/Vol] 98 mg/dL Normal 74-100 [facility] Comment on above: Performed By: #### L AB99, LAB17 ####Supersonic Engineer: SAGE PEPE ([id number])[facility]ITAL[facility] RODRIGUEZDONTAE RITTMAN (SWRLAB)[address] [place] [address] Potassium [Moles/Vol] 3.7 mmol/L Normal 3.5-5.1 [facility] Comment on above: Result Comment: [facility] potassium values may be up to 0.5 mmol/L lower than serum values. Performed By: #### L AB99, LAB17 ####Supersonic Engineer: SAGE PEPE ([id number])[facility] [place] (SWRLAB)[address] [place] [address] Protein [Mass/Vol] 7.7 g/dL Normal 6.4-8.3 [facility] Comment on above: Performed By: #### L AB99, LAB17 ####Supersonic Engineer: SAGE PEPE ([id number])[facility] [place] (SWRLAB)[address] [place] [address] Sodium [Moles/Vol] 140 mmol/L Normal 136-145 [facility] Comment on above: Performed By: #### L AB99, LAB17 ####Supersonic Engineer: SAGE PEPE ([id number])[facility] [place] (SWRLAB)[address] [place] [address] Urea nitrogen [Mass/Vol] 10 mg/dL Normal 8-21 [facility] Comment on above: Performed By: #### L AB99, LAB17 ####Supersonic Engineer: SAGE PEPE ([id number])[facility] [place] (SWRLAB)[address] [place] [address] CT ABDOMEN PELVIS WO IV CONT RASTon 12-17-2024 CT ABDOMEN PELVIS WO IV CONTRAST Patient Name: SALLY VARGAS : 1980 [place] [id number] Exam Date/Time: 12/17/2024 12:52 Procedure: CT ABDOMEN [...] change. 2. Fatty liver Report Dictated on Workstation: [facility] Electronically Signed By: Marcelino Griffiths MD Electronically Signed Date/Time: 12/17/2024 1:44 PM EDT PT has known contrast allergy. PT done without contrast. Pt to ER with complaint of pelvic pain. And vaginal discharge. States she has had a hysterectomy. Pt was seen at [facility] recently for same and has not improved. Taking Raymond without relief. Rates pain 9/10 at this time. States had some slightly bloody vaginal discharge. Normal [facility] CT Abdomen and Pelvis WO con traston 12-17-2024 1. Nonobstructing le ft renal calculi without change. 2. Fatty liver Report Dictated on Electronically Signed By: Marcelino Griffiths MD Electronically Signed Date/Time: 12/17/2024 1:44 PM EDT [facility] [employer] [facility] Patient Name: SALLY BALLARD : 1980 [...] identified. Pelvic lymphadenopathy: None. Osseous structures: Normal. [facility] Marcelino Griffiths MD - 12/17/2024 Patient Name: SALLY VARGAS : 1980 [place] [id number] Exam Date/Time: 12/17/2024 12:52 Procedure: CT ABDOMEN [...] Electronically Signed Date/Time: 12/17/2024 1:44 PM EDT [facility] Radiology Study observation (narrative) [facility] [place] CT Abdomen and Pelvis WO con trastOrdered By: Marcelino Griffiths on 12-17-2024 [facility] Work Phone: Comprehensive metabolic 1998 panelon 12-17-2024 Albumin [Mass/Vol] 4.1 g/dL 3.5 - 5.0 g/dL [facility] ALP [Catalytic activity/Vol] 120 U/L 40 - 150 U/L [facility] ALT [Catalytic activity/Vol] 32 U/L High NINF - 30 U/L [facility] Anion gap [Moles/Vol] 7 mmol/L 3 - 13 mmol/L [facility] [place] AST [Catalytic activity/Vol] 29 U/L NINF - 34 U/L [facility] Bilirubin [Mass/Vol] 0.6 mg/dL NINF - 1.2 mg/dL [facility] [place] Calcium [Mass/Vol] 9.4 mg/dL 8.4 - 10. 2 mg/dL [facility] Chloride [Moles/Vol] 106 mmol/L 98 - 10 7 mmol/L [facility] CO2 [Moles/Vol] 27 mmol/L 22 - 29 mmol/L [facility] Creatinine [Mass/Vol] 1.04 mg/dL 0.57 - 1.11 mg/dL [facility] GFR/1.73 sq M.predicted (S/P/Bld) [Vol rate/Area] 67.7 mL/min - PINF [facility] Comment on above: Calculation based on the Chronic Kidney Disease Epidemiology Collaboration (CKD-EPI) equation refit without adjustment for race Glucose [Mass/Vol] 98 mg/dL 74 - 100 mg/dL [facility] Interpretation and review of laboratory results Abnormal [facility] Potassium [Moles/Vol] 3.7 mmol/L 3.5 - 5.1 mmol/L [facility] Comment on above: Plasma potassium rc ues may be up to 0.5 mmol/L lower than serum values. Protein [Mass/Vol] 7.7 g/dL 6.4 - 8.3 g/dL [facility] Sodium [Moles/Vol] 140 mmol/L 136 - 145 mmol/L [facility] Urea nitrogen [Mass/Vol] 10 mg/dL 8 - 21 mg/dL [facility] ED Nursing Noteon 12-17-2024 ED Nursing Note Pt observed on camer a getting into her vehicle and driving away after being instructed not to drive after receiving narcotics in the ER Normal [facility] ED Nursing Note Discussed with pt th e need to get a ride home due to receiving IV narcotic pain medication. Pt states she will sit in the waiting room and not drive home. Normal [facility] ED Nursing Note Pt instructed on alex f swab for GC/ chlamydia and verbalized understanding Normal [facility] ED Nursing Note Pt to ER with compla int of pelvic pain. And vaginal discharge. States she has had a hysterectomy. Pt was seen at [facility] recently for same and has not improved. Taking Raymond without relief. Rates pain 9/10 at this time. States had some slightly bloody vaginal discharge. Denies urinary symptoms, vomiting or diarrhea. + nausea which is unrelieved by Zofran. Pt ambulatory on arrival with steady gait. Alert and oriented x 4. Skin warm and dry. Respirations even and unlabored. Pt changed into hospital gown. Call light in reach. Normal [facility] ED Provider Noteon ED Provider Note [...] come back reassuring. She has follow-up with [facility] in 4 days Nursing Notes were reviewed. [...] / ASPIRATION / LYSIS ? LIVER SURGERY 2019 removed cyst ? URETEROSCOPY Right 09/05/2019 C&P [...] Relation Name Age of Onset ? Other ([address]75) Mother blood clots ? Hyperlipidemia Mother ? [...] Resource Strain: Patient Declined (12/14/2023) Received from [facility] Overall Financial Resource Strain (CARDIA) ? Difficulty of Paying Living Expenses: Patient declined Food Insecurity: Patient Declined (12/14/2023) Received from [facility] Hunger Vital Sign ? Worried About Running Out of Food in the Last Year: Patient declined ? Ran Out of Food in the Last Year: Patient declined Transportation Needs: Patient Declined (12/14/2023) Received from [facility] PRAPARE - Transportation ? Lack of Transportation (Medical): Patient declined ? Lack of Transportation (Non-Medical): Patient declined Physical Activity: Patient Declined (12/14/2023) Received from [facility] Exercise Vital Sign ? Days of Exercise per Week: Patient declined ? Minutes of Exercise per Session: Patient declined Stress: No Stress Concern Present (11/15/2020) Received from [facility], [facility] of Occupational Health - Occupational Stress Questionnaire ? Feeling of Stress : Only a little Social Connections: Unknown (12/14/2023) Received from [facility] Social Connection and Isolation Panel [NHANES] ? Active Member of Clubs or Organizations: Patient declined ? Marital Status: Patient declined H (more content not included)... Normal [facility] LIPASEon 12-17-2024 Lipase [Catalytic activity/Vol] 14 U/L Normal <55 [facility] Comment on above: Performed By: #### L AB99, LAB17 ####Supersonic Engineer: SAGE PEPE ([id number])[facility] RUKHSANA (SWRLAB)[address] [place] [address] Laboratory - Chemistry and C hemistry - challengeon 12-17-2024 Lipase [Catalytic activity/Vol] 14 U/L NINF - 55 U/L [facility] Lipase [Catalytic activity/V ol]on 12-17-2024 Interpretation and review of laboratory results Normal [facility] Progress Noteon 12-17-2024 Progress Note Culture reviewed, pl ease contact patient and inform them of the results and needs flagyl 500mg po tid for 7 days, #21 Normal [facility] Urinalysis complete panel (U )Ordered By: Ry Farah on 12-17-2024 Bacteria LM.HPF (Urine sed) [#/Area] Moderate Abnormal Negative /HPF [facility] Bilirubin Ql (U) Negative Negative mg/dL [facility] Clarity (U) Turbid Abnormal Clear [facility] Color (U) Light Yellow Lt. Yellow [facility] Epithelial cells.squamous LM.HPF (Urine sed) [#/Area] 6-10 Abnormal [facility] Glucose Ql (U) Normal Normal (<70) mg/dL [facility] Hemoglobin Ql (U) Negative Negative mg/dL [facility] Interpretation and review of laboratory results Abnormal [facility] Ketones (U) [Mass/Vol] Negative Negat melecio mg/dL [facility] Leukocyte esterase Test strip Ql (U) Negative Negative Ezra/uL [facility] Nitrite Ql (U) Negative Negative [facility] pH (U) 5.5 [pH] 5.0 - 8.0 pH [facility] Protein (U) [Mass/Vol] Negative Negat melecio mg/dL [facility] RBC LM.HPF (Urine sed) [#/Area] Negative [facility] Specific gravity (U) [Rel density] 1.01 1.005 - 1.030 [facility] Urobilinogen (U) [Mass/Vol] Normal Normal (0-1) mg/dL [facility] Volume, Urine 12 mL [facility] WBC LM.HPF (Urine sed) [#/Area] 0-2 [facility] VAGINITIS PANEL MVP PCRon VAGINITIS PANEL MVP [...] sexual abuse or for other forensic purposes. [facility] Comment on above: Performed By: #### L [id number] ####Supersonic Engineer: SAGE PEPE ([id number])[address] 36on 12-15-2024 36 LVM for patient to return call to schedule ED follow up [facility] 36 Name of Caller: Giovanna molina Contact Reason for Appointment: Patient was seen in the ED for abdominal pain 12-15. Patient states she needs to be seen right away. Unable to find a sooner appointment. Has not been seen with Dr. Story in over 3 years. Please Advise. Office Name: OBGYN Medication Refills need, if any: N/A Medication Name: N/A [facility] CBC W Auto Differential pane l (Bld)on 12-15-2024 Basophils (Bld) [#/Vol] 0.1 10*3/uL 0.0 - 0.2 10*3/uL [facility] Basophils/100 WBC (Bld) 0.6 % 0.0 - 2.0 % [facility] Eosinophils (Bld) [#/Vol] 0.2 10*3/uL 0.0 - 0.5 10*3/uL [facility] Eosinophils/100 WBC (Bld) 2.2 % 0.0 - 6.0 % [facility] Erythrocyte distribution width (RBC) [Ratio] 13.1 % 11.5 - 15.0 % [facility] Hematocrit (Bld) [Volume fraction] 40.2 % 35.0 - 47.0 % [facility] Hemoglobin (Bld) [Mass/Vol] 13.3 g/dL 11.7 - 16.0 g/dL [facility] Immature granulocytes (Bld) [#/Vol] 0.1 10*3/uL High NINF - 0.1 10*3/uL [facility] Immature granulocytes/100 WBC (Bld) 1.3 % 0.0 - 2.0 % [facility] Interpretation and review of laboratory results Abnormal [facility] Lymphocytes (Bld) [#/Vol] 3.7 10*3/uL 1.0 - 4.3 10*3/uL [facility] Lymphocytes/100 WBC (Bld) 36.5 % 15.0 - 45.0 % [facility] MCH (RBC) [Entitic mass] 30.2 pg 26.0 - 34.0 pg [facility] MCHC (RBC) [Mass/Vol] 33.1 % 30.5 - 36.0 % [facility] MCV (RBC) [Entitic vol] 91.2 fL 77.0 - 99.0 fL [facility] Monocytes (Bld) [#/Vol] 0.6 10*3/uL 0.0 - 0.9 10*3/uL [facility] Monocytes/100 WBC (Bld) 6.1 % 5.0 - 13.0 % [facility] Neutrophils (Bld) [#/Vol] 5.4 10*3/uL 1.8 - 7.5 10*3/uL [facility] Neutrophils/100 WBC (Bld) 53.3 % 38.0 - 82.0 % [facility] Nucleated RBC/100 WBC (Bld) [Ratio] 0 % [facility] Platelet mean volume (Bld) [Entitic vol] 10.3 fL 9.0 - 12.7 fL [facility] Platelets (Bld) [#/Vol] 271 10*3/uL 140 - 440 10*3/uL [facility] RBC (Bld) [#/Vol] 4.41 10*6/uL 3.80 - 5.2 0 10*6/uL [facility] WBC (Bld) [#/Vol] 10.1 10*3/uL 3.6 - 10.7 10*3/uL [facility] CBC WITH AUTO DIFFERENTIALon 12-15-2024 Basophils (Bld) [#/Vol] 0.1 10*3/uL Normal 0.0-0.2 [facility] Comment on above: Performed By: #### L [id number] ####Supersonic Engineer: CANDELARIA FREITAS ([id number])[facility] (SBAB)[address] [place] [address] Basophils/100 WBC (Bld) 0.6 % Normal 0.0-2.0 [facility] Comment on above: Performed By: #### L [id number] ####Supersonic Engineer: CANDELARIA FREITAS ([id number])[facility] (SBAB)[address] [place] [address] Eosinophils (Bld) [#/Vol] 0.2 10*3/uL Normal 0.0-0.5 [facility] Comment on above: Performed By: #### L [id number] ####Supersonic Engineer: CANDELARIA FREITAS ([id number])[facility] ([facility])[address] Eosinophils/100 WBC (Bld) 2.2 % Normal 0.0-6.0 [facility] Comment on above: Performed By: #### L [id number] ####Supersonic Engineer: CANDELARIA FREITAS ([id number])[facility] (SBAB)[address] [place] [address] Erythrocyte distribution width (RBC) [Ratio] 13.1 % Normal 11.5-15.0 [facility] Comment on above: Performed By: #### L [id number] ####Supersonic Engineer: CANDELARIA FORTINO ([id number])[facility] [place] (SBHLAB)[address] Hematocrit (Bld) [Volume fraction] 40.2 % Normal 35.0-47.0 [facility] Comment on above: Performed By: #### L [id number] ####Supersonic Engineer: CANDELARIA FORTINO ([id number])[facility] [place] (SBHLAB)[address] Hemoglobin (Bld) [Mass/Vol] 13.3 g/dL Normal 11.7-16.0 [facility] Comment on above: Performed By: #### L [id number] ####Supersonic Engineer: CANDELARIA FORTINO ([id number])[facility] [place] (SBHLAB)[address] [place] [address] IMMATURE GRANS % 1.3 % Normal 0.0-2.0 [facility] Comment on above: Performed By: #### L [id number] ####Supersonic Engineer: CANDELARIA FORTINO ([id number])[facility] [place] (SBHLAB)[address] IMMATURE GRANS ABSOLUTE 0.1 10*3/uL High <0.1 [facility] Comment on above: Performed By: #### L [id number] ####Supersonic Engineer: CANDELARIA FREITAS ([id number])[facility] [place] (SBHLAB)[address] Lymphocytes (Bld) [#/Vol] 3.7 10*3/uL Normal 1.0-4.3 [facility] Comment on above: Performed By: #### L [id number] ####Supersonic Engineer: CANDELARIA HOFFSARAH ([id number])[facility] [place] (SBHLAB)[address] Lymphocytes/100 WBC (Bld) 36.5 % Normal 15.0-45.0 [facility] Comment on above: Performed By: #### L [id number] ####Supersonic Engineer: CANDELARIA GARCIALeticiaSARAH ([id number])[facility] [place] (SBHLAB)[address] MCH (RBC) [Entitic mass] 30.2 pg Normal 26.0-34.0 [facility] Comment on above: Performed By: #### L [id number] ####Supersonic Engineer: CANDELARIA FORTINO ([id number])[facility] (SBHLAB)[address] MCHC 33.1 % Normal 30.5-36.0 [facility] Comment on above: Performed By: #### L [id number] ####Supersonic Engineer: CANDELARIA FORTINO ([id number])[facility]ITAL[facility] [place] (SBHLAB)[address] [place] [address] MCV (RBC) [Entitic vol] 91.2 fL Normal 77.0-99.0 [facility] Comment on above: Performed By: #### L [id number] ####Supersonic Engineer: CANDELARIA HOFFSARAH ([id number])[facility]ITAL[facility] [place] (SBHLAB)[address] Monocytes (Bld) [#/Vol] 0.6 10*3/uL Normal 0.0-0.9 [facility] Comment on above: Performed By: #### L [id number] ####Supersonic Engineer: CANDELARIA FREITAS ([id number])[facility] [place] (SBHLAB)[address] Monocytes/100 WBC (Bld) 6.1 % Normal 5.0-13.0 [facility] Comment on above: Performed By: #### L [id number] ####Supersonic Engineer: CANDELARIA FREITAS ([id number])[facility] [place] (SBHLAB)[address] NEUTROPHILS ABSOLUTE 5.4 10*3/uL Normal 1.8-7.5 [facility] Comment on above: Performed By: #### L [id number] ####Supersonic Engineer: CANDELARIAELY FREITAS ([id number])[facility]ITAL[facility] (SBHLAB)[address] Neutrophils/100 WBC (Bld) 53.3 % Normal 38.0-82.0 [facility] Comment on above: Performed By: #### L [id number] ####Supersonic Engineer: CANDELARIAELY FREITAS ([id number])[facility]ITAL[facility] (SBHLAB)[address] NRBC 0.0 /100 WBCs Normal 0.0-2.0 [facility] Comment on above: Performed By: #### L [id number] ####Supersonic Engineer: CANDELARIA FREITAS ([id number])[facility] (SBHLAB)[address] Platelet mean volume (Bld) [Entitic vol] 10.3 fL Normal 9.0-12.7 [facility] Comment on above: Performed By: #### L [id number] ####Supersonic Engineer: CANDELARIAELY FREITAS ([id number])[facility]ITAL[facility] [place] (SBHLAB)[address] Platelets (Bld) [#/Vol] 271 10*3/uL Normal 140-440 [facility] Comment on above: Performed By: #### L [id number] ####Supersonic Engineer: CANDELARIA FORTINO ([id number])[facility] ([facility] RBC (Bld) [#/Vol] 4.41 10*6/uL Normal 3.80-5.20 [facility] Comment on above: Performed By: #### L [id number] ####Supersonic Engineer: CANDELARIA FORTINO ([id number])[facility] WBC (Bld) [#/Vol] 10.1 10*3/uL Normal 3.6-10.7 [facility] Comment on above: Performed By: #### L [id number] ####Supersonic Engineer: CANDELARIA HOFFSARAH ([id number])[facility] [place] (SBHLAB)[address] COMPLETE URINALYSISon 2024 BACTERIA (#/HPF) IN URINE Negative Normal Negative [facility] Comment on above: Performed By: #### L [id number] ####Supersonic Engineer: CANDELARIA FREITAS ([id number])[facility] (SBHLAB)[address] BILIRUBIN, TOTAL PRESENCE IN URINE Negative Normal Negative [facility] Comment on above: Performed By: #### L [id number] ####Supersonic Engineer: CANDELARIA FREITAS ([id number])[facility] (SBHLAB)[address] Clarity (U) Clear Normal Clear [facility] Comment on above: Performed By: #### L [id number] ####Supersonic Engineer: CANDELARIA FREITAS ([id number])[facility] (SBHLAB)[address] Color (U) Light Yellow Normal Lt. Yellow [facility] Comment on above: Performed By: #### L [id number] ####Supersonic Engineer: CANDELARIA HOFFSARAH ([id number])[facility] (SBHLAB)[address] GLUCOSE (MG/DL) IN URINE Normal Normal Normal (<70) [facility] Comment on above: Performed By: #### L [id number] ####Supersonic Engineer: CANDELARIA FREITAS ([id number])[facility] (SBHLAB)[address] HEMOGLOBIN PRESENCE IN URINE 0.06 mg/dL Abnormal Negative [facility] Comment on above: Performed By: #### L [id number] ####Supersonic Engineer: CANDELARIA FREITAS ([id number])[facility] (SBHLAB)[address] HYALINE CASTS (#/LPF) IN URINE SEDIMENT BY MICROSCOPY 6-10 Abnormal Negative [facility] Comment on above: Performed By: #### L [id number] ####Supersonic Engineer: CANDELARIA FREITAS ([id number])[facility] ([facility])[address] Ketones Ql (U) Negative Normal Negative [facility] Comment on above: Performed By: #### L [id number] ####Supersonic Engineer: CANDELARIA FREITAS ([id number])[facility] ([facility])[address] LEUKOCYTE ESTERASE PRESENCE IN URINE BY TEST STRIP 75 Ezra/uL Abnormal Negative [facility] Comment on above: Performed By: #### L [id number] ####Supersonic Engineer: CANDELARIA FREITAS ([id number])[facility] ([facility])[address] [place] [address] [place] MUCUS (#/LPF) IN URINE SEDIMENT Few Normal Negative [facility] Comment on above: Performed By: #### L [id number] ####Supersonic Engineer: CANDELARIA FREITAS ([id number])[facility] ([facility])[address] NITRITE PRESENCE IN URINE Negative Normal Negative [facility] Comment on above: Performed By: #### L [id number] ####Supersonic Engineer: CANDELARIA FREITAS ([id number])[facility] ([facility])[address] pH (U) 5.5 [pH] Normal 5.0-8.0 [facility] Comment on above: Performed By: #### L [id number] ####Supersonic Engineer: CANDELARIA FREITAS ([id number])[facility] ([facility])[address] Protein (U) [Mass/Vol] Negative Normal Negative [facility] Comment on above: Performed By: #### L [id number] ####Supersonic Engineer: CANDELARIA FREITAS ([id number])[facility] [place] (SBHLAB)155 [place] [address] [place] RBC (#/HPF) IN URINE SEDIMENT 0-2 Normal 0-2 [facility] Comment on above: Performed By: #### L [id number] ####Supersonic Engineer: CANDELARIA FREITAS ([id number])[facility] [place] (SBHLAB)[address] Specific gravity (U) [Rel density] 1.010 Normal 1.005-1.030 [facility] Comment on above: Performed By: #### L [id number] ####Supersonic Engineer: CANDELARIA FREITAS ([id number])[facility] (SBHLAB)[address] SQUAMOUS EPITHELIAL CELLS (#/HPF) IN URINE SEDIMENT 0-2 Normal 3-5 [facility] Comment on above: Performed By: #### L [id number] ####Supersonic Engineer: CANDELARIA FREITAS ([id number])[facility] (SBHLAB)[address] UROBILINOGEN (MG/DL) IN URINE Normal Normal Normal (0-1) [facility] Comment on above: Performed By: #### L [id number] ####Supersonic Engineer: CANDELARIA FREITAS ([id number])[facility] [place] (SBHLAB)[address] WBC (LEUKOCYTE) (#/HPF) IN URINE SEDIMENT 3-5 Normal 0-5 [facility] Comment on above: Performed By: #### L [id number] ####Supersonic Engineer: CANDELARIA FREITAS ([id number])[facility] (SBHLAB)[address] COMPREHENSIVE METABOLIC PANE [place] 12-15-2024 Albumin [Mass/Vol] 4.2 g/dL Normal 3.5-5.0 [facility] Comment on above: Performed By: #### L AB17, LAB99 ####Supersonic Engineer: CANDELARIA FREITAS ([id number])[facility] [place] (SBHLAB)[address] ALP [Catalytic activity/Vol] 123 U/L Normal 40-150 [facility] Comment on above: Performed By: #### L AB17, LAB99 ####Supersonic Engineer: CANDELARIA FREITAS ([id number])[facility] [place] (SBHLAB)[address] ALT [Catalytic activity/Vol] 28 U/L Normal <30 [facility] Comment on above: Performed By: #### L AB17, LAB99 ####Supersonic Engineer: CANDELARIA FREITAS ([id number])[facility] [place] (SBHLAB)[address] Anion gap [Moles/Vol] 12 mmol/L Normal 3-13 [facility] Comment on above: Performed By: #### L AB17, LAB99 ####Supersonic Engineer: CANDELARIA FREITAS ([id number])[facility] [place] (SBHLAB)[address] AST [Catalytic activity/Vol] 48 U/L High <34 [facility] Comment on above: Result Comment: TC Significant interference from hemolysis. Result integrity compromised. Interpret with caution. Performed By: #### L AB17, LAB99 ####Supersonic Engineer: CANDELARIA FREITAS ([id number])[facility] [place] (SBHLAB)[address] Bilirubin [Mass/Vol] 0.4 mg/dL Normal <1.2 [facility] Comment on above: Performed By: #### L AB17, LAB99 ####Supersonic Engineer: CANDELARIA FREITAS ([id number])[facility] [place] (SBHLAB)[address] Calcium [Mass/Vol] 9.4 mg/dL Normal 8.4-10.2 [facility] Comment on above: Performed By: #### L AB17, LAB99 ####Supersonic Engineer: CANDELARIA FREITAS ([id number])[facility] [place] (SBHLAB)[address] Chloride [Moles/Vol] 107 mmol/L Normal 98-107 [facility] Comment on above: Performed By: #### L AB17, LAB99 ####Supersonic Engineer: CANDELARIA FREITAS ([id number])[facility]ITALH[facility]ENTERJabari (SBHLAB)[address] CO2 [Moles/Vol] 19 mmol/L Low 22-29 [facility] Comment on above: Performed By: #### L AB17, LAB99 ####Supersonic Engineer: CANDELARIA FREITAS ([id number])[facility]ITAL[facility] (SBHLAB)[address] Creatinine [Mass/Vol] 1.10 mg/dL Normal 0.57-1.11 [facility] Comment on above: Performed By: #### L AB17, LAB99 ####Supersonic Engineer: CANDELARIA FREITAS ([id number])[facility]ITAL[facility] (HLAB)[address] GLOMERULAR FILTRATION RATE ML/MIN/1.73 SQ M.PREDICTED 63.3 mL/min/1.73m*2 Normal >60.0 [facility] Comment on above: Result Comment: Calc ulation based on the Chronic Kidney Disease Epidemiology Collaboration (CKD-EPI) equation refit without adjustment for race ORDER COMMENTS: Specimen slightly hemolyzed Performed By: #### L AB17, LAB99 ####Supersonic Engineer: CANDELARIA FREITAS ([id number])[facility]ITAL[facility] (SBHLAB)155 [place] [address] [place] Glucose [Mass/Vol] 110 mg/dL High 74-100 [facility] Comment on above: Performed By: #### L AB17, LAB99 ####Supersonic Engineer: CANDELARIA FREITAS ([id number])[facility] (SBHLAB)[address] Potassium [Moles/Vol] 4.8 mmol/L Normal 3.5-5.1 [facility] Comment on above: Result Comment: TC Significant interference from hemolysis. Result integrity compromised. Interpret with caution. Performed By: #### L AB17, LAB99 ####Supersonic Engineer: CANDELARIA AYALACER ([id number])[facility] (SBHLAB)[address] [place] [address] Protein [Mass/Vol] 8.6 g/dL High 6.4-8.3 [facility] Comment on above: Result Comment: TC Potential interference from hemolysis Performed By: #### L AB17, LAB99 ####Supersonic Engineer: CANDELARIA FREITAS ([id number])[facility] [place] (SBHLAB)[address] Sodium [Moles/Vol] 138 mmol/L Normal 136-145 [facility] Comment on above: Performed By: #### L AB17, LAB99 ####Supersonic Engineer: CANDELARIA HOFFSARAH ([id number])[facility] (SBHLAB)[address] [place] [address] Urea nitrogen [Mass/Vol] 10 mg/dL Normal 8-21 [facility] Comment on above: Performed By: #### L AB17, LAB99 ####Supersonic Engineer: CANDELARIA GARCIAELMO ([id number])[facility] ([facility])[address] [place] [address] Comprehensive metabolic 1998 panelon 12-15-2024 Albumin [Mass/Vol] 4.2 g/dL 3.5 - 5.0 g/dL [facility] ALP [Catalytic activity/Vol] 123 U/L 40 - 150 U/L [facility] ALT [Catalytic activity/Vol] 28 U/L NINF - 30 U/L [facility] Anion gap [Moles/Vol] 12 mmol/L 3 - 13 mmol/L [facility] AST [Catalytic activity/Vol] 48 U/L High NINF - 34 U/L [facility] Comment on above: TC Significant interference from hemolysis. Result integrity compromised. Interpret with caution. Bilirubin [Mass/Vol] 0.4 mg/dL NINF - 1.2 mg/dL [facility] Calcium [Mass/Vol] 9.4 mg/dL 8.4 - 10. 2 mg/dL [facility] Chloride [Moles/Vol] 107 mmol/L 98 - 10 7 mmol/L [facility] CO2 [Moles/Vol] 19 mmol/L Low 22 - 29 mmol/L [facility] Creatinine [Mass/Vol] 1.1 mg/dL 0.57 - 1.11 mg/dL [facility] GFR/1.73 sq M.predicted (S/P/Bld) [Vol rate/Area] 63.3 mL/min - PINF [facility] Comment on above: Calculation based on the Chronic Kidney Disease Epidemiology Collaboration (CKD-EPI) equation refit without adjustment for race Glucose [Mass/Vol] 110 mg/dL High 74 - 100 mg/dL [facility] Interpretation and review of laboratory results Abnormal [facility] Potassium [Moles/Vol] 4.8 mmol/L 3.5 - 5.1 mmol/L [facility] Comment on above: TC Significant interference from hemolysis. Result integrity compromised. Interpret with caution. Protein [Mass/Vol] 8.6 g/dL High 6.4 - 8.3 g/dL [facility] Comment on above: TC Potential interference from hemolysis Sodium [Moles/Vol] 138 mmol/L 136 - 145 mmol/L [facility] Urea nitrogen [Mass/Vol] 10 mg/dL 8 - 21 mg/dL [facility] Specimen slightly hemolyzed [facility] ED Nursing Noteon 12-15-2024 ED Nursing Note IV removed from [facility] prior to DC Normal [facility] ED Provider Noteon ED Provider Note Emergency Department Encounter [facility] ED Patient: Sally Vargas : 1980 Date of Evaluation: 12/15/2024 ED Provider: Fan Wesley DO Chief Complaint Chief Complaint Patient presents with Abdominal Pain Pt reports abd pain with nausea for the past 4 days, reports she went to the restroom and noticed blood in her underwear, she reports a hx of a total hysterectomy AMADOR Vargas is a 44 y.o. female who [...] Resource Strain: Patient Declined (12/14/2023) Received from [facility] Overall Financial Resource Strain (CARDIA) Difficulty of Paying Living Expenses: Patient declined Food Insecurity: Patient Declined (12/14/2023) Received from [facility] Hunger Vital Sign Worried About Running Out of Food in the Last Year: Patient declined Ran Out of Food in the Last Year: Patient declined Transportation Needs: Patient Declined (12/14/2023) Received from [facility] PRAPARE - Transportation Lack of Transportation (Medical): Patient declined Lack of Transportation (Non-Medical): Patient declined Physical Activity: Patient Declined (12/14/2023) Received from [facility] Exercise Vital Sign Days of Exercise per Week: Patient declined Minutes of Exercise per Session: Patient declined Stress: No Stress Concern Present (11/15/2020) Received from [facility], [facility] [place] of Occupational Health - Occupational Stress Questionnaire Feeling of Stress : Only a little Social Connections: Unknown (12/14/2023) Received from [facility] Social Connection and Isolation Panel [NHANES] Active Member of Clubs or Organizations: Patient declined Marital Status: Patient declined Housing Stability: Patient Declined (12/14/2023) Received from [facility] Housing Stability Vital Sign Unable to Pay [...] EVERY DAY, Starting 06/06/2023, Normal HYDROcodone-acetaminophe n (Raymond) 5-325 MG tablet Take 1 tablet by mouth every 6 hours as needed for severe pain (7-10) for up to 5 days., Starting 12/12/2024, Until 12/17/2024 at 2359, Normal ondansetron (Zofran) 4 MG tablet Take 1 tablet (4 m (more content not included)... Normal [facility] LIPASEon 12-15-2024 Lipase [Catalytic activity/Vol] 21 U/L Normal <55 [facility] Comment on above: Performed By: #### L AB17, LAB99 ####Supersonic Engineer: CANDELARIA FREITAS ([id number])[facility] [place] [address] Laboratory - Chemistry and C hemistry - challengeon 12-15-2024 Lipase [Catalytic activity/Vol] 21 U/L NINF - 55 U/L [facility] Lipase [Catalytic activity/V ol]on 12-15-2024 Interpretation and review of laboratory results Normal [facility] No Panel Informationon 12-15 [facility] Urinalysis complete panel (U )Ordered By: Radha Macias on 12-15-2024 Bacteria LM.HPF (Urine sed) [#/Area] Negative Negative /HPF [facility] Bilirubin Ql (U) Negative Negative mg/dL [facility] Clarity (U) Clear Clear [facility] Color (U) Light Yellow Lt. Yellow [facility] Epithelial cells.squamous LM.HPF (Urine sed) [#/Area] 0-2 [facility] Glucose Ql (U) Normal Normal (<70) mg/dL [facility] Hemoglobin Ql (U) 0.06 mg/dL Abnormal Negative [facility] Hyaline casts Auto (Urine sed) [#/Area] 6-10 Abnormal Negative /LPF [facility] Interpretation and review of laboratory results Abnormal [facility] Ketones (U) [Mass/Vol] Negative Negat melecio mg/dL [facility] Leukocyte esterase Test strip Ql (U) 75 Abnormal Negative Ezra/uL [facility] Mucus LM.HPF (Urine sed) [#/Area] Few Negative /LPF [facility] Nitrite Ql (U) Negative Negative [facility] pH (U) 5.5 [pH] 5.0 - 8.0 pH [facility] Protein (U) [Mass/Vol] Negative Negat melecio mg/dL [facility] RBC LM.HPF (Urine sed) [#/Area] 0-2 [facility] Specific gravity (U) [Rel density] 1.01 1.005 - 1.030 [facility] Urobilinogen (U) [Mass/Vol] Normal Normal (0-1) mg/dL [facility] WBC LM.HPF (Urine sed) [#/Area] 3-5 [facility] 36on 12-14-2024 36 S: Patient spoke wit [facility] nurse regarding abdominal pain. DONTRELL 2020. B: Onset of symptoms/concern patient was in ER on 12/12/2024 and states that she was told that pain was from endometriosis. Patient spoke with [facility] nurse industrial relations director today and was advised to go to [...] 1 hour Protocols used: Abdominal Pain - ADULT-[facility] 36on 12-12-2024 36 S: Patient spoke wit h [facility] nurse regarding abdominal and pelvic pain B: Onset of symptoms/concern ongoing A: Patient states she is having abdominal and pelvic cramping and she feels like she is on her period. It is a constant pain and not going away. Patient states she has been to the ER for this a few times up in [place] and they did a CT scan and told her everything was fine. 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 Patient [...] and verbalized understanding. Patient will go to [facility]. Patient given care advice per protocol. Patient understands care advice. No further needs at this time. Patient instructed to call back with new or worsening symptoms. Reason for Disposition SEVERE pelvic pain and present > 1 hour Protocols used: Pelvic Pain - ADULT-[place] [facility] CBC W Auto Differential pane l (Bld)on 12-12-2024 Basophils (Bld) [#/Vol] 0.1 10*3/uL 0.0 - 0.2 10*3/uL [facility] Basophils/100 WBC (Bld) 0.7 % 0.0 - 2.0 % [facility] Eosinophils (Bld) [#/Vol] 0.2 10*3/uL 0.0 - 0.5 10*3/uL [facility] Eosinophils/100 WBC (Bld) 2.3 % 0.0 - 6.0 % [facility] Erythrocyte distribution width (RBC) [Ratio] 13.3 % 11.5 - 15.0 % [facility] Hematocrit (Bld) [Volume fraction] 42.3 % 35.0 - 47.0 % [facility] Hemoglobin (Bld) [Mass/Vol] 14.3 g/dL 11.7 - 16.0 g/dL [facility] Immature granulocytes (Bld) [#/Vol] 0.1 10*3/uL High NINF - 0.1 10*3/uL [facility] Immature granulocytes/100 WBC (Bld) 1.6 % 0.0 - 2.0 % [facility] Interpretation and review of laboratory results Abnormal [facility] Lymphocytes (Bld) [#/Vol] 2.9 10*3/uL 1.0 - 4.3 10*3/uL [facility] Lymphocytes/100 WBC (Bld) 34.8 % 15.0 - 45.0 % [facility] MCH (RBC) [Entitic mass] 30.9 pg 26.0 - 34.0 pg [facility] MCHC (RBC) [Mass/Vol] 33.8 % 30.5 - 36.0 % [facility] MCV (RBC) [Entitic vol] 91.4 fL 77.0 - 99.0 fL [facility] Monocytes (Bld) [#/Vol] 0.5 10*3/uL 0.0 - 0.9 10*3/uL [facility] Monocytes/100 WBC (Bld) 6.4 % 5.0 - 13.0 % [facility] Neutrophils (Bld) [#/Vol] 4.5 10*3/uL 1.8 - 7.5 10*3/uL [facility] Neutrophils/100 WBC (Bld) 54.2 % 38.0 - 82.0 % [facility] Nucleated RBC/100 WBC (Bld) [Ratio] 0 % [facility] Platelet mean volume (Bld) [Entitic vol] 10.1 fL 9.0 - 12.7 fL [facility] Platelets (Bld) [#/Vol] 302 10*3/uL 140 - 440 10*3/uL [facility] RBC (Bld) [#/Vol] 4.63 10*6/uL 3.80 - 5.2 0 10*6/uL [facility] WBC (Bld) [#/Vol] 8.2 10*3/uL 3.6 - 10.7 10*3/uL [facility] CBC WITH AUTO DIFFERENTIALon 12-12-2024 Basophils (Bld) [#/Vol] 0.1 10*3/uL Normal 0.0-0.2 [facility] Comment on above: Performed By: #### L [id number] ####Supersonic Engineer: CANDELARIA FREITAS ([id number])[facility] [place] (SBHLAB)[address] Basophils/100 WBC (Bld) 0.7 % Normal 0.0-2.0 [facility] Comment on above: Performed By: #### L [id number] ####Supersonic Engineer: CANDELARIA FREITAS ([id number])[facility] [place] (SBHLAB)[address] [place] [address] Eosinophils (Bld) [#/Vol] 0.2 10*3/uL Normal 0.0-0.5 [facility] Comment on above: Performed By: #### L [id number] ####Supersonic Engineer: CANDELARIA FREITAS ([id number])[facility] [place] (SBHLAB)[address] [place] [address] Eosinophils/100 WBC (Bld) 2.3 % Normal 0.0-6.0 [facility] Comment on above: Performed By: #### L [id number] ####Supersonic Engineer: CANDELARIA FREITAS ([id number])[facility] [place] (SBHLAB)[address] [place] [address] Erythrocyte distribution width (RBC) [Ratio] 13.3 % Normal 11.5-15.0 [facility] Comment on above: Performed By: #### L [id number] ####Supersonic Engineer: CANDELARIA FREITAS ([id number])[facility] [place] (SBHLAB)[address] [place] [address] Hematocrit (Bld) [Volume fraction] 42.3 % Normal 35.0-47.0 [facility] Comment on above: Performed By: #### L [id number] ####Supersonic Engineer: CANDELARIA FREITAS ([id number])[facility]ITALH[facility]ARE[facility] ([facility])[address] Hemoglobin (Bld) [Mass/Vol] 14.3 g/dL Normal 11.7-16.0 [facility] Comment on above: Performed By: #### L [id number] ####Supersonic Engineer: CANDELARIA FREITAS ([id number])[facility]ITAL[facility] [place] ([facility])[address] IMMATURE GRANS % 1.6 % Normal 0.0-2.0 [facility] Comment on above: Performed By: #### L [id number] ####Supersonic Engineer: CANDELARIA FREITAS ([id number])[facility] ([facility])[address] [place] [address] IMMATURE GRANS ABSOLUTE 0.1 10*3/uL High <0.1 [facility] Comment on above: Performed By: #### L [id number] ####Supersonic Engineer: CANDELARIA FREITAS ([id number])[facility] ([facility])[address] [place] [address] Lymphocytes (Bld) [#/Vol] 2.9 10*3/uL Normal 1.0-4.3 [facility] Comment on above: Performed By: #### L [id number] ####Supersonic Engineer: CANDELARIA FREITAS ([id number])[facility] ([facility])[address] [place] [address] Lymphocytes/100 WBC (Bld) 34.8 % Normal 15.0-45.0 [facility] Comment on above: Performed By: #### L [id number] ####Supersonic Engineer: CANDELARIA FREITAS ([id number])[facility] ([facility])[address] [place] [address] MCH (RBC) [Entitic mass] 30.9 pg Normal 26.0-34.0 [facility] Comment on above: Performed By: #### L [id number] ####Supersonic Engineer: CANDELARIA HOFFSARAH ([id number])[facility] [place] ([facility])[address] MCHC 33.8 % Normal 30.5-36.0 [facility] Comment on above: Performed By: #### L [id number] ####Supersonic Engineer: CANDELARIA HOFFSARAH ([id number])[facility] [place] (SBHLAB)[address] MCV (RBC) [Entitic vol] 91.4 fL Normal 77.0-99.0 [facility] Comment on above: Performed By: #### L [id number] ####Supersonic Engineer: CANDELARIA FORTINO ([id number])[facility]ITAL[facility] [place] (SBHLAB)[address] [place] [address] Monocytes (Bld) [#/Vol] 0.5 10*3/uL Normal 0.0-0.9 [facility] Comment on above: Performed By: #### L [id number] ####Supersonic Engineer: CANDELARIA FREITAS ([id number])[facility]ITAL[facility] [place] (SBHLAB)[address] Monocytes/100 WBC (Bld) 6.4 % Normal 5.0-13.0 [facility] Comment on above: Performed By: #### L [id number] ####Supersonic Engineer: CANDELARIA FREITAS ([id number])[facility] [place] ([facility])[address] NEUTROPHILS ABSOLUTE 4.5 10*3/uL Normal 1.8-7.5 [facility] [facility] Comment on above: Performed By: #### L [id number] ####Supersonic Engineer: CANDELARIA FREITAS ([id number])[facility] [place] (SBHLAB)[address] Neutrophils/100 WBC (Bld) 54.2 % Normal 38.0-82.0 [facility] Comment on above: Performed By: #### L [id number] ####Supersonic Engineer: CANDELARIA HOFFSARAH ([id number])[facility] [place] (SBHLAB)[address] NRBC 0.0 /100 WBCs Normal 0.0-2.0 [facility] Comment on above: Performed By: #### L [id number] ####Supersonic Engineer: CANDELARIA FREITAS ([id number])[facility] [place] (SBHLAB)[address] Platelet mean volume (Bld) [Entitic vol] 10.1 fL Normal 9.0-12.7 [facility] Comment on above: Performed By: #### L [id number] ####Supersonic Engineer: CANDELARIA HOFFSARAH ([id number])[facility] [place] (SBHLAB)[address] Platelets (Bld) [#/Vol] 302 10*3/uL Normal 140-440 [facility] Comment on above: Performed By: #### L [id number] ####Supersonic Engineer: CANDELARIA FREITAS ([id number])[facility] (SBHLAB)[address] RBC (Bld) [#/Vol] 4.63 10*6/uL Normal 3.80-5.20 [facility] Comment on above: Performed By: #### L [id number] ####Supersonic Engineer: CANDELARIA FREITAS ([id number])[facility] (SBHLAB)[address] WBC (Bld) [#/Vol] 8.2 10*3/uL Normal 3.6-10.7 [facility] Comment on above: Performed By: #### L [id number] ####Supersonic Engineer: CANDELARIA HOFFSARAH ([id number])[facility] (SBHLAB)[address] COMPLETE URINALYSISon 2024 BILIRUBIN, TOTAL PRESENCE IN URINE Negative Normal Negative [facility] Comment on above: Performed By: #### L [id number] ####Supersonic Engineer: CANDELARIA FREITAS ([id number])[facility] [place] (SBHLAB)[address] Clarity (U) Clear Normal Clear [facility] Comment on above: Performed By: #### L [id number] ####Supersonic Engineer: CANDELARIA FREITAS ([id number])[facility] (SBHLAB)[address] Color (U) Light Yellow Normal Lt. Yellow [facility] Comment on above: Performed By: #### L [id number] ####Supersonic Engineer: CANDELARIA FREITAS ([id number])[facility] (SBHLAB)[address] GLUCOSE (MG/DL) IN URINE Normal Normal Normal (<70) [facility] Comment on above: Performed By: #### L [id number] ####Supersonic Engineer: CANDELARIA FREITAS ([id number])[facility] (SBHLAB)[address] HEMOGLOBIN PRESENCE IN URINE Negative Normal Negative [facility] Comment on above: Performed By: #### L [id number] ####Supersonic Engineer: CANDELARIA FREITAS ([id number])[facility] (SBHLAB)[address] Ketones Ql (U) Negative Normal Negative [facility] Comment on above: Performed By: #### L [id number] ####Supersonic Engineer: CANDELARIA FREITAS ([id number])[facility] (SBHLAB)[address] LEUKOCYTE ESTERASE PRESENCE IN URINE BY TEST STRIP Negative Normal Negative [facility] Comment on above: Performed By: #### L [id number] ####Supersonic Engineer: CANDELARIA FREITAS ([id number])[facility] (SBHLAB)[address] NITRITE PRESENCE IN URINE Negative Normal Negative [facility] Comment on above: Performed By: #### L [id number] ####Supersonic Engineer: CANDELARIA AYALACER ([id number])[facility] (SBHLAB)[address] pH (U) 5.5 [pH] Normal 5.0-8.0 [facility] Comment on above: Performed By: #### L [id number] ####Supersonic Engineer: CANDELARIA FREITAS ([id number])[facility]ITAL[facility] [place] (SBHLAB)[address] Protein (U) [Mass/Vol] Negative Normal Negative [facility] Comment on above: Performed By: #### L [id number] ####Supersonic Engineer: CANDELARIA HOFFSARAH ([id number])[facility]ITAL[facility] [place] (HLAB)[address] [place] [address] Specific gravity (U) [Rel density] 1.006 Normal 1.005-1.030 [facility] Comment on above: Performed By: #### L [id number] ####Supersonic Engineer: CANDELARIA FREITAS ([id number])[facility] (SBHLAB)[address] UROBILINOGEN (MG/DL) IN URINE Normal Normal Normal (0-1) [facility] Comment on above: Performed By: #### L [id number] ####Supersonic Engineer: CANDELARIA FREITAS ([id number])[facility] (SBHLAB)[address] COMPREHENSIVE METABOLIC PANE [place] 12-12-2024 Albumin [Mass/Vol] 4.4 g/dL Normal 3.5-5.0 [facility] Comment on above: Performed By: #### L AB99, LAB17 ####Supersonic Engineer: CANDELARIA FREITAS ([id number])[facility] (SBHLAB)[address] ALP [Catalytic activity/Vol] 136 U/L Normal 40-150 [facility] Comment on above: Performed By: #### L AB99, LAB17 ####Supersonic Engineer: CANDELARIA FREITAS ([id number])[facility] [place] (SBHLAB)[address] ALT [Catalytic activity/Vol] 30 U/L High <30 [facility] Comment on above: Performed By: #### L AB99, LAB17 ####Supersonic Engineer: CANDELARIA FREITAS ([id number])[facility] [place] (SBHLAB)[address] Anion gap [Moles/Vol] 11 mmol/L Normal 3-13 [facility] Comment on above: Performed By: #### L AB99, LAB17 ####Supersonic Engineer: CANDELARIA FREITAS ([id number])[facility] [place] (SBHLAB)[address] AST [Catalytic activity/Vol] 23 U/L Normal <34 [facility] Comment on above: Performed By: #### L AB99, LAB17 ####Supersonic Engineer: CANDELARIA FREITAS ([id number])[facility] [place] (SBHLAB)[address] Bilirubin [Mass/Vol] 0.6 mg/dL Normal <1.2 [facility] Comment on above: Performed By: #### L AB99, LAB17 ####Supersonic Engineer: CANDELARIA FREITAS ([id number])[facility] [place] (SBHLAB)[address] Calcium [Mass/Vol] 9.6 mg/dL Normal 8.4-10.2 [facility] Comment on above: Performed By: #### L AB99, LAB17 ####Supersonic Engineer: CANDELARIA FREITAS ([id number])[facility] [place] (SBHLAB)[address] Chloride [Moles/Vol] 107 mmol/L Normal 98-107 [facility] Comment on above: Performed By: #### L AB99, LAB17 ####Supersonic Engineer: CANDELARIA FREITAS ([id number])[facility]BPRESBY[facility] (SBHLAB)[address] CO2 [Moles/Vol] 24 mmol/L Normal 22-29 [facility] Comment on above: Performed By: #### L AB99, LAB17 ####Supersonic Engineer: CANDELARIA FREITAS ([id number])[facility] (SBHLAB)[address] Creatinine [Mass/Vol] 1.00 mg/dL Normal 0.57-1.11 [facility] Comment on above: Performed By: #### L AB99, LAB17 ####Supersonic Engineer: CANDELARIA FREITAS ([id number])[facility] (SBHLAB)[address] GLOMERULAR FILTRATION RATE ML/MIN/1.73 SQ M.PREDICTED 70.9 mL/min/1.73m*2 Normal >60.0 [facility] Comment on above: Result Comment: Calc ulation based on the Chronic Kidney Disease Epidemiology Collaboration (CKD-EPI) equation refit without adjustment for race Performed By: #### L AB99, LAB17 ####Supersonic Engineer: CANDELARIA FREITAS ([id number])[facility] (SBHLAB)[address] [place] [address] Glucose [Mass/Vol] 85 mg/dL Normal 74-100 [facility] Comment on above: Performed By: #### L AB99, LAB17 ####Supersonic Engineer: CANDELARIA FREITAS ([id number])[facility] (SBHLAB)155 [place] [address] [place] Potassium [Moles/Vol] 4.1 mmol/L Normal 3.5-5.1 [facility] Comment on above: Result Comment: [facility] potassium values may be up to 0.5 mmol/L lower than serum values. Performed By: #### L AB99, LAB17 ####Supersonic Engineer: CANDELARIA FREITAS ([id number])[facility] (SBHLAB)155 [place] [address] [place] Protein [Mass/Vol] 8.3 g/dL Normal 6.4-8.3 [facility] Comment on above: Performed By: #### L AB99, LAB17 ####Supersonic Engineer: CANDELARIA FREITAS ([id number])[facility]ITAL[facility] [place] (SBHLAB)[address] Sodium [Moles/Vol] 142 mmol/L Normal 136-145 [facility] Comment on above: Performed By: #### L AB99, LAB17 ####Supersonic Engineer: CANDELARIA FREITAS ([id number])[facility] (SBHLAB)[address] Urea nitrogen [Mass/Vol] 9 mg/dL Normal 8-21 [facility] Comment on above: Performed By: #### L AB99, LAB17 ####Supersonic Engineer: CANDELARIA FREITAS ([id number])[facility] (SBHLAB)[address] [place] [address] CT ABDOMEN PELVIS WO IV CONT RASTon 12-12-2024 CT ABDOMEN PELVIS WO IV CONTRAST Patient Name: SALLY VARGAS : 1980 [facility]#: [id number] Exam Date/Time: 12/12/2024 15:30 Procedure: CT ABDOMEN [...] nausea, bilateral flank pain. Hx stones Normal [facility] CT Abdomen and Pelvis WO con traston 12-12-2024 1. Punctate nonobstructive left renal calculi. 2. Hepatic steatosis. Report Dictated on Electronically Signed By: Juaquin Raya MD Electronically Signed Date/Time: 12/12/2024 4:39 PM EDT [facility] Name: [facility] : 1980 [id number] Exam Date/Time: 12/12/2024 15:30 Procedure: CT ABDOMEN [...] LYMPH NODES: Unremarkable. No enlarged lymph nodes. [facility] Juaquin Raya MD - 12/12/2024 Patient Name: SALLY VARGAS : 1980 [id number] Exam Date/Time: 12/12/2024 15:30 Procedure: CT ABDOMEN [...] Electronically Signed Date/Time: 12/12/2024 4:39 PM EDT [facility] Radiology Study observation (narrative) [facility] CT Abdomen and Pelvis WO con trastOrdered By: Juaquin Raya on 12-12-2024 [facility] [place] Work Phone: Comprehensive metabolic 1998 panelon 12-12-2024 Albumin [Mass/Vol] 4.4 g/dL 3.5 - 5.0 g/dL [facility] ALP [Catalytic activity/Vol] 136 U/L 40 - 150 U/L [facility] ALT [Catalytic activity/Vol] 30 U/L High NINF - 30 U/L [facility] Anion gap [Moles/Vol] 11 mmol/L 3 - 13 mmol/L [facility] AST [Catalytic activity/Vol] 23 U/L [facility] U/L [facility] Bilirubin [Mass/Vol] 0.6 mg/dL [facility] - 1.2 mg/dL [facility] Calcium [Mass/Vol] 9.6 mg/dL 8.4 - 10. 2 mg/dL [facility] Chloride [Moles/Vol] 107 mmol/L 98 - 10 7 mmol/L [facility] CO2 [Moles/Vol] 24 mmol/L 22 - 29 mmol/L [facility] Creatinine [Mass/Vol] 1 mg/dL 0.57 - 1.11 mg/dL [facility] GFR/1.73 sq M.predicted (S/P/Bld) [Vol rate/Area] 70.9 mL/min - PINF [facility] Comment on above: Calculation based on the Chronic Kidney Disease Epidemiology Collaboration (CKD-EPI) equation refit without adjustment for race Glucose [Mass/Vol] 85 mg/dL 74 - 100 mg/dL [facility] Interpretation and review of laboratory results Abnormal [facility] Potassium [Moles/Vol] 4.1 mmol/L 3.5 - 5.1 mmol/L [facility] Comment on above: Plasma potassium rc ues may be up to 0.5 mmol/L lower than serum values. Protein [Mass/Vol] 8.3 g/dL 6.4 - 8.3 g/dL [facility] Sodium [Moles/Vol] 142 mmol/L 136 - 145 mmol/L [facility] Urea nitrogen [Mass/Vol] 9 mg/dL 8 - 21 mg/dL [facility] ED Provider Noteon ED Provider Note EMERGENCY [...] most recently around 2 weeks ago at [place] and had a negative CT at that time. States this most recent flare of abdominal pain has been ongoing for the last couple of days with associated nausea. No actual episodes of emesis. No fevers, but does endorse chills. No dysuria, hematuria, urgency, or frequency, but does have history of renal stones. Tried to schedule an appointment with her PRESS MANAGER today, but when she called the nurse [...] Problem Relation Name Age of Onset Other ([address]) Mother blood clots Hyperlipidemia Mother High Blood Pressure Mother SOCIAL HISTORY Social History Socioeconomic History Marital status: Tobacco Use Smoking status: Every Day Current packs/day: 0.50 Types: Cigarettes Smokeless tobacco: Never Substance and Sexual Activity Alcohol use: Yes Alcohol/week: 0.0 standard drinks of alcohol Drug use: Never Social Drivers of Health Financial Resource Strain: Patient Declined (12/14/2023) Received from [facility] Overall Financial Resource Strain (CARDIA) Difficulty of Paying Living Expenses: Patient declined Food Insecurity: Patient Declined (12/14/2023) Received from [facility] Hunger Vital Sign Worried About Running Out of Food in the Last Year: Patient declined Ran Out of Food in the Last Year: Patient declined Transportation Needs: Patient Declined (12/14/2023) Received from [facility] PRAPARE - Transportation Lack of Transportation (Medical): Patient declined Lack of Transportation (Non-Medical): Patient declined Physical Activity: Patient Declined (12/14/2023) Received from [facility] Exercise Vital Sign Days of Exercise per Week: Patient declined Minutes of Exercise per Session: Patient declined Stress: No Stress Concern Pr (more content not included)... Normal [facility] LIPASEon 12-12-2024 Lipase [Catalytic activity/Vol] 28 U/L Normal <55 [facility] Comment on above: Performed By: #### L AB99, LAB17 ####Supersonic Engineer: CANDELARIA FREITAS ([id number])[facility] [place] [address] Laboratory - Chemistry and C hemistry - challengeon 12-12-2024 Lipase [Catalytic activity/Vol] 28 U/L NINF - 55 U/L [facility] Lipase [Catalytic activity/V ol]on 12-12-2024 Interpretation and review of laboratory results Normal [facility] No Panel Informationon 12-12 [facility] US PELVIS TRANSVAGINALon US PELVIS TRANSVAGINAL Patient Name: SALLY CEDILLO : 1980 [place] [id number] Exam Date/Time: 12/12/2024 15:55 Procedure: US PELVIS [...] Electronically Signed Date/Time: 12/12/2024 4:40 PM EDT [facility] US Pelvis transvaginalon Status post hysterec altagracia and bilateral oophorectomies. No acute pelvic abnormality is identified. Report Dictated on Electronically Signed By: Barb Sanders MD Electronically Signed Date/Time: 12/12/2024 4:40 PM EDT [facility] Patient Name: SALLY BALLARD : 1980 [...] this probe. No appreciable bladder filling defect. [facility] Barb Sanders M D - 12/12/2024 Patient [...] Electronically Signed Date/Time: 12/12/2024 4:40 PM EDT [facility] Radiology Study observation (narrative) [facility] US Pelvis transvaginalOrdere d By: Barb Sanders on 12-12-2024 [facility] Work Phone: Urinalysis complete panel (U )on 12-12-2024 Bilirubin Ql (U) Negative Negative mg/dL [facility] Clarity (U) Clear Clear [facility] Color (U) Light Yellow Lt. Yellow [facility] Glucose Ql (U) Normal Normal (<70) mg/dL [facility] Hemoglobin Ql (U) Negative Negative mg/dL [facility] Interpretation and review of laboratory results Normal [facility] Ketones (U) [Mass/Vol] Negative Negat melecio mg/dL [facility] Leukocyte esterase Test strip Ql (U) Negative Negative Ezra/uL [facility] Nitrite Ql (U) Negative Negative [facility] pH (U) 5.5 [pH] 5.0 - 8.0 pH [facility] Protein (U) [Mass/Vol] Negative Negat melecio mg/dL [facility] Specific gravity (U) [Rel density] 1.006 1.005 - 1.030 [facility] Urobilinogen (U) [Mass/Vol] Normal Normal (0-1) mg/dL [facility] CNPNon 12-09-2024 [facility] Telephone (NAVWST) -------- SALLY VARGAS ([id number]) 1980 F Date Time Provider Department 12/09/24 ABI GALICIA NAVWSJm During your visit today, we recorded the following information about you: Abi Galicia MSW 12/09/2024 10:21 AM Signed Sw spoke with patient in regards to medication cost issue. Patient also notes that she needs help with clearance to see medical providers. Sw noted patient has My Chart message from [employer]ANCE Saini. Patient reports that she cannot remember her password to My Chart. Sw noted Jiglu phone number for patient to reach out to her regarding HCAP. Patient also notes that sneha has been turned down 2x for disability. Patient notes that she has appealed and been denied. Patient reports currently working for [employer]. No longer has her Medicaid due to [...] with any patient assistance program options Abi Galicia MSW 12/13/2024 10:42 AM Signed Scott reviewed patient medication list. Patient medications show up on Rx Outreach. There is a cost to medications on Rx Outreach. Scott can let patient know this information. Abi [...] NASAL) 0.65 % nasal spray Use 1 [place] in the nose as needed. - gabapentin [...] sciatica [M54.5 (more content not included)... Normal [facility] CNOVon 12-07-2024 CNOV Office Visit (INTMWS ) -------- SALLY VARGAS ([id number]) 1980 F Date Time Provider Department 12/07/24 10:20 AM SILVERIO HALEY INTMWS During your visit today, we recorded the following information about you: Pulse Respiration Blood pressure Weight 80/minute 16/minute 146/86 95.5 kg Silverio Haley MD 12/16/2024 1:32 AM Signed This note was created using Fotologriter. 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 She is seeking assistance with reapplying for disability benefits and obtaining a parking placard due to her physical limitations. She also expresses frustration with her current healthcare providers and is seeking a new painter decorator. SUBJECTIVE: PAST MEDICAL HISTORY Diagnosis Date Allergic rhinitis, cause unspecified 05/17/2008 Spring and summer Benign liver cyst 05/24/2010 CT scan at [facility] 11/2009 and 04/2010 showe 4 mm increase in size. No pain. No elevated LFTs on 03/11/2010. Calculus of kidney 05/17/[address] Nicolas: Hospitalized age 20, and again later -- no procedures so far ([facility], [facility], 1995 [facility]) Cancer (HCC) Chronic pain syndrome 06/06/2020 COVID-19 [...] 1 tablet by mouth once daily. From [facility]. pantoprazole DR (PROTONIX) 40 mg tablet Take 1 tablet by mouth daily before breakfast. Take on empty stomach, 1/2 hr before meal. sodium chlo (more content not included)... Normal [facility] .Auto Diffon 12-05-2024 Basophil, Absolute 0.1 10 3/mcL Normal 0.0-0.2 [facility] Comment on above: Performed By: #### GUSTAVO FloresMICLENORE #### [address] [address] Basophils/100 WBC (Bld) 0.9 % Normal 0.0-2.5 [facility] Comment on above: Performed By: #### Sandrine Ferreira UAJOSE EDUARDO #### [address] [address] Eosinophil, Absolute 0.1 10 3/mcL Normal 0.0-0.[address] [facility] Comment on above: Performed By: #### Sandrine Ferreira UAMICLENORE #### [address] [address] Eosinophils/100 WBC (Bld) 1.9 % Normal 0.0-7.0 [facility] Comment on above: Performed By: #### Sandrine Ferreira UAJOSE EDUARDO #### [address] [address] Lymphocyte, Absolute 2.5 10 3/mcL Normal 0.9-4.[address] [facility] Comment on above: Performed By: #### Sandrine Ferreira UAMICAO #### [address] [address] Lymphocytes/100 WBC (Bld) 35.9 % Normal 20.0-40.0 [facility] Comment on above: Performed By: #### Sandrine Ferreira UAMICAO #### [address] [address] Monocyte, Absolute 0.4 10 3/mcL Normal 0.1-1.4 [facility] Comment on above: Performed By: #### Sandrine Ferreira UAMICAO #### [address] [address] Monocytes/100 WBC (Bld) 5.7 % Normal 2.0-13.0 A [facility] Comment on above: Performed By: #### ANN MARIE Flores #### [address] [address] Neutrophils/100 WBC (Bld) 55.6 % Normal 50.0-75.0 [facility] Comment on above: Performed By: #### ANN MARIE Flores #### [address] [address] .GFRon 12-05-2024 Estimated Glomerular Filtration Rate 70 ml/min/1.73sqm Normal [facility] Comment on above: Result Comment: Stages [...] the eGFR results. Performed By: #### C LETICIA DELUCA ANEU, MDW, LIP, GFR, CMP #### [address] [address] .MDWon 12-05-2024 Monocyte Distribution Width 18.42 Normal 0.00-20.00 [facility] Comment on above: Result Comment: For ED adult patients suspected of sepsis, MDW<=20.0 does not rule out sepsis or risk of sepsis Performed By: #### C LETICIA DELUCA ANEU, MDW, LIP, GFR, CMP #### [address] [address] .NEUABSon 12-05-2024 Neutrophil, Absolute 3.8 10 3/mcL Normal 2.3-8.[address] [facility] Comment on above: Performed By: #### U Hanna UAMICAO #### [place] [address] .Urinalysis Microscopic (AO) on 12-05-2024 UA Bacteria Trace Abnormal [facility] Comment on above: Performed By: #### U Hanna UAMICAO #### [place] [address] UA RBC 0-5 Abnormal None Seen [facility] Comment on above: Performed By: #### U Hanna UAMICAO #### [place] [address] UA Squam Epithelial LOADED Abnormal None Seen [facility] Comment on above: Performed By: #### U Hanna UAMICAO #### [place] [address] UA WBC 5-10 Abnormal None Seen [facility] Comment on above: Performed By: #### Sandrine Ferreira UAMICAO #### [place] [address] CBCon 12-05-2024 Erythrocyte distribution width (RBC) [Ratio] 14.0 % Normal 11.5-15.5 [facility] Comment on above: Performed By: #### Sandrine Ferreira UAMICAO #### [place] [address] Hematocrit (Bld) [Volume fraction] 41.4 % Normal 34.0-46.0 [facility] Comment on above: Performed By: #### U Hanna UAMICAO #### [place] [address] Hgb 14.0 G/dL Normal 12.0-16.0 [facility] Comment on above: Performed By: #### U Hanna UAMICAO #### [place] [address] MCH (RBC) [Entitic mass] 30.2 pg Normal 27.0-33.0 [facility] Comment on above: Performed By: #### U Hanna UAMICAO #### [address] [address] MCHC 33.8 G/dL Normal 32.0-36.0 [facility] Comment on above: Performed By: #### ANN MARIE Flores #### [place] [id number] [place], [place] [address] MCV (RBC) [Entitic vol] 89.3 fL Normal 80.0-99.0 A [facility] Comment on above: Performed By: #### ANN MARIE Flores #### [address] [address] Platelet 271 10 3/mcL Normal 150-450 [facility] Comment on above: Performed By: #### ANN MARIE Flores #### [address] [address] Platelet mean volume (Bld) [Entitic vol] 7.9 fL Normal 6.6-10.5 [facility] Comment on above: Performed By: #### ANN MARIE Flores #### [address] [address] RBC 4.63 10 6/mcL Normal 4.10-5.30 [facility] Comment on above: Performed By: #### ANN MARIE Flores #### [address] [address] WBC 6.9 10 3/mcL Normal 4.5-10.8 [facility] Comment on above: Performed By: #### ANN MARIE Flores #### [address] [address] CMPon 12-05-2024 Albumin Level 4.2 G/dL Normal 3.5-5.0 [facility] Comment on above: Performed By: #### C LETICIA DELUCA, VANESA, MDW, LIP, GFR, CMP #### [id number] [place], [place] [address] Albumin/Globulin [Mass ratio] 1.1 {ratio} Normal 1.1-2.5 [facility] Comment on above: Performed By: #### C SANDRINE LETICIA, VANESA, MDW, LIP, GFR, CMP #### [address] [address] ALP [Catalytic activity/Vol] 159 U/L High 40-135 [facility] Comment on above: Performed By: #### C BC, LETICIA, VANESA, MDW, LIP, GFR, CMP #### [address] [address] ALT [Catalytic activity/Vol] 31 U/L Normal 14-59 [facility] Comment on above: Performed By: #### C BC, LETICIA, VANESA, MDW, LIP, GFR, CMP #### [place] [id number] AST [Catalytic activity/Vol] 15 U/L Normal 10-40 [facility] Comment on above: Performed By: #### C BC, LETICIA, VANESA, MDW, LIP, GFR, CMP #### [address] [address] Bili Total 0.8 mg/dL Normal 0.2-1.0 [facility] Comment on above: Result Comment: Use of this assay is not recommended for patients undergoing treatment with eltrombopag due to the potential for falsely elevated results. Performed By: #### C BC, LETICIA, VANESA, MDW, LIP, GFR, CMP #### [address] [address] BUN/Creatinine Ratio 8 ratio Normal 7-27 [facility] Comment on above: Performed By: #### C BC, LETICIA, ANEU, MDW, LIP, GFR, CMP #### [address] [address] Calcium [Mass/Vol] 9.6 mg/dL Normal 8.4-10.2 [facility] Comment on above: Performed By: #### C BC, LETICIA, ANEU, MDW, LIP, GFR, CMP #### [address] [address] Chloride [Moles/Vol] 102 mmol/L Normal 98-107 [facility] Comment on above: Performed By: #### C BC, ADIFF, ANEU, MDW, LIP, GFR, CMP #### [address] [address] CO2 [Moles/Vol] 28 mmol/L Normal 22-29 [facility] Comment on above: Performed By: #### C BC, ADIFF, ANEU, MDW, LIP, GFR, CMP #### [address] [address] Creatinine [Mass/Vol] 1.01 mg/dL Normal 0.55-1.02 [facility] Comment on above: Result Comment: Test ing performed on [employer] Dimension EXL analyzer using a modified kinetic Eleuterio technique. Performed By: #### C BC, ADIFF, ANEU, MDW, LIP, GFR, CMP #### [place] [address] Electrolyte Balance 7.0 mEq/L Normal 4.0-15.0 [facility] Comment on above: Performed By: #### C BC, ADIFF, ANEU, MDW, LIP, GFR, CMP #### [place] [address] Globulin 3.8 G/dL Normal 1.5-3.8 [facility] Comment on above: Performed By: #### C BC, ADIFF, ANEU, MDW, LIP, GFR, CMP #### [place] [address] Glucose [Mass/Vol] 115 mg/dL High 70-105 [facility] Comment on above: Performed By: #### C BC, ADIFF, ANEU, MDW, LIP, GFR, CMP #### [address] [address] Potassium [Moles/Vol] 4.0 mmol/L Normal 3.5-5.1 [facility] Comment on above: Performed By: #### C BC, ADIFF, ANEU, MDW, LIP, GFR, CMP #### [address] [address] Sodium [Moles/Vol] 137 mmol/L Normal 136-145 [facility] Comment on above: Performed By: #### C LETICIA DELUCA ANEU, MDW, LIP, GFR, CMP #### [address] [address] Total Protein 8.0 G/dL Normal 6.4-8.2 [facility] Comment on above: Performed By: #### C LETICIA DELUCA ANEU, MDW, LIP, GFR, CMP #### [address] [address] Urea nitrogen [Mass/Vol] 8 mg/dL Normal 7-18 [facility] Comment on above: Performed By: #### C LETICIA DELUCA ANEU, MDW, LIP, GFR, CMP #### [address] [address] LIPon 12-05-2024 Lipase Level 39 U/L Normal 16-77 [facility] Comment on above: Performed By: #### C LETICIA DELUCA ANEU, MDW, LIP, GFR, CMP #### [address] [address] PREGUon 12-05-2024 HCG ( test) Ql (U) Negative [facility] Comment on above: Performed By: #### U A, UAMICAO #### [address] [address] test (u) int Not detected Invalid Interpretation Code [facility] Comment on above: Performed By: #### U A, UAMICAO #### [address] [address] UAon 12-05-2024 Color (U) Yellow Normal [facility] Comment on above: Performed By: #### U A, UAMICAO #### [address] [address] Glucose (U) [Mass/Vol] Negative Normal Negative [facility] Comment on above: Performed By: #### U A, UAMICAO #### [place] [address] Ketones Ql (U) Negative Normal Negative [facility] Comment on above: Performed By: #### U A, UAMICAO #### [place] [address] UA Appear Clear Normal Clear [facility] Comment on above: Performed By: #### U A, UAMICAO #### [place] [address] UA Blood Trace Abnormal Negative [facility] Comment on above: Performed By: #### U A, UAMICAO #### [place] [address] UA Leuk Est Trace Abnormal Negative [facility] Comment on above: Performed By: #### U A, UAMICAO #### [place] [address] UA Nitrite Negative Normal Negative [facility] Comment on above: Performed By: #### U A, UAMICAO #### [place] [address] UA pH 6.5 Normal 5.0 - 8.0 [facility] Comment on above: Performed By: #### U A, UAMICAO #### [place] [address] UA Protein Negative Normal Negative [facility] Comment on above: Performed By: #### U A, UAMICAO #### [place] [address] UA Spec Grav 1.015 Normal 1.015-1.025 [facility] Comment on above: Performed By: #### U A, UAMICAO #### [place] [address] UA Specimen Type Clean Catch Normal [facility] Comment on above: Performed By: #### U A, UAMICAO #### [place] [address] UA Urobilinogen 0.2 E.U./dL Normal 0.2-1.0 [facility] Comment on above: Performed By: #### U A, UAMICAO #### [facility] [address] [place], [place] [address] Urobilinogen (U) [Mass/Vol] Negative Normal Negative [facility] Comment on above: Performed By: #### U A, UAMICAO #### [facility] [address] [place], [place] [address] Gastroenterology Visit Repor ton 12-02-2024 Gastroenterology Visit Report [facility] [address] [place] [address] OFFICE VISIT Date of Service: 12/02/24 MR#: [id number] Acct: [id number] Name: SALLY VARGAS Rep #: [id number] : 1980 Provider: Blue Rose DO Age/Sex: 44/F Location: [facility] Status: Signed Intake Vital Signs 11/22/24 10:44 Height 5 ft 1 in Intake Visit Reasons: [facility] FU/pancreatic issue Allergies fentanyl Allergy (Severe, Verified 11/22/24 10:46) Shortness of breath Iodinated Contrast Media (CT) Allergy (Verified 11/22/24 10:46) Shortness of breath ketorolac tromethamine (From Toradol) Allergy (Verified 11/22/24 10:46) Rash metronidazole (From Flagyl) Allergy (Verified 11/22/24 10:46) Hives Penicillins Allergy (Verified 11/22/24 10:46) Hives dicyclomine (From Bentyl) Adverse Reaction (Mild, Verified 11/22/24 10:46) Hives aspirin Adverse Reaction (Verified 11/22/24 10:46) Upset Stomach Medications ???Medication ???Instructions ???Recorded ???Confirmed ???Type gabapentin 400 mg capsule 400 mg PO TID PRN NEUROPATHY 10/0312/02/24 History hyoscyamine sulfate 0.125 mg 0.125 mg PO Q6H PRN abdominal 02/1212/02/24 Rx disintegrating tablet discomfort #10 tabs diphenhydramine HCl 25 mg capsule 25 mg PO QHS 05/25/24 12/02/24 Hi story (Allergy (diphenhydramine)) escitalopram oxalate 20 mg tablet 20 mg PO DAILY 05/25/24 12/02/24 History pantoprazole 40 mg tablet,delayed 40 mg PO DAILY 05/25/24 12/02/24 History release promethazine 25 mg tablet 25 mg PO Q8H PRN PRN 05/25/2411/13 History nausea/vomiting cyclobenzaprine 10 mg tablet 10 mg PO TID PRN Muscle Spasm #15 08/21/24 12/02/24 Rx TABLETS ondansetron 4 mg disintegrating 4 mg PO Q6H PRN nausea and 5 12/02/24 Rx tablet vomiting #20 tabs PFSH Medical History Cancer Depression Rheumatoid arthritis Arthritis [...] stone with hydronephrosis History of renal calculi Surgical History Hx of tooth extraction History of cholecystectomy H/O ovarian cystectomy (09/2019) History of bilateral oophorectomy History of hysterectomy History of tubal ligation Family History Aunt Breast cancer Grandfather CAD (coronary artery disease) Father Heart disease, Onset Age: 73 Triple bypass Mother Heart disease, Onset Age: 62 Other Diabetes Social History household members: none Smoking Status: Current every day smoker tobacco type: cigarettes Tobacco: How many years used: 15 alcohol intake: current substance use type: does not use HPI HPI Details: SALLY VARGAS, is a 44 F who presents to the office today for follow up. OV 5.3.24 pt reports she has been having the following symptoms since August of 2023. She is experiencing LLQ pain; daily N/V and is unable to keep any food down; alternating constipation and diarrhea that has a green color. Pt states that she is taking Creon, pantoprazole, and Phenergan. abd/pelvis CT 02.24.24 No acute findings in the abdomen or pelvis. Nonobstructing left nephrolithiasis. Colonic fecal burden consistent with clinical constipation. abd/pelvis CT 03.05.24 Hepatic cysts. Nonobstructive left renal calculi. OV 05.10.24 pt reports continued symptoms of N/V/D; occasional constipation, abd pain, HB, and difficulty swallowing. Pt reports that she is getting fitted for dentures in 3 months. EGD and Colonoscopy 05.27.24 EGD LA Grade B erosive esophagitis with no bleeding. Biopsied. Erosive gastropathy with stigmata of recent bleeding. Biopsied. Duodenal erosions without bleeding. Biopsied. Colonoscopy Congested mucosa in the sigmoid colon, in the descending colon and in the transverse colon. Biopsied. The examined portion of the ileum was normal. Biopsied. OV 12.02.24 pt reports that she was in [place] ER on 11.30.24 for abd pain. Reports constant throbbing / stabbing pain in her abdomen. Pt reports that with the abdominal pain she is also having nausea, alternating bowel movements, and gas / bloating. ROS Const Constitutional: Positive for headache(s); No fatigue, fever(s) or weight change ENT ENT: Positive (more content not included)... Normal [facility] .Auto Diffon 11-30-2024 Basophil, Absolute 0.2 10 3/mcL Normal 0.0-0.2 [facility] Comment on above: Performed By: #### C LETICIA DELUCA ANEU, MDW, LIP, GFR, CMP #### [id number] [place], [place] [address] Basophils/100 WBC (Bld) 1.3 % Normal 0.0-2.5 [facility] Comment on above: Performed By: #### C LETICIA DELUCA ANEU, MDW, LIP, GFR, CMP #### [id number] [place], [place] [address] Eosinophil, Absolute 0.2 10 3/mcL Normal 0.0-0.[address] [facility] Comment on above: Performed By: #### C BC, ADIFF, ANEU, MDW, LIP, GFR, CMP #### [address] [address] Eosinophils/100 WBC (Bld) 1.8 % Normal 0.0-7.0 [facility] Comment on above: Performed By: #### C BC, ADIFF, ANEU, MDW, LIP, GFR, CMP #### [address] [address] Lymphocyte, Absolute 4.3 10 3/mcL Normal 0.9-4.[address] [facility] Comment on above: Performed By: #### C BC, ADIFF, ANEU, MDW, LIP, GFR, CMP #### [address] [address] Lymphocytes/100 WBC (Bld) 31.6 % Normal 20.0-40.0 [facility] Comment on above: Performed By: #### C BC, ADIFF, ANEU, MDW, LIP, GFR, CMP #### [address] [address] Monocyte, Absolute 0.6 10 3/mcL Normal 0.1-1.4 [facility] Comment on above: Performed By: #### C BC, ADIFF, ANEU, MDW, LIP, GFR, CMP #### [address] [address] Monocytes/100 WBC (Bld) 4.5 % Normal 2.0-13.0 [facility] Comment on above: Performed By: #### C BC, ADIFF, ANEU, MDW, LIP, GFR, CMP #### [address] [address] Neutrophils/100 WBC (Bld) 60.8 % Normal 50.0-75.0 [facility] Comment on above: Performed By: #### C BC, ADIFF, ANEU, MDW, LIP, GFR, CMP #### [address] [address] .GFRon 11-30-2024 Estimated Glomerular Filtration Rate 67 ml/min/1.73sqm Normal [facility] Comment on above: Result Comment: Stages [...] the eGFR results. Performed By: #### C LETICIA DELUCA ANEU, MDW, LIP, GFR, CMP #### [address] [address] .MDWon 11-30-2024 Monocyte Distribution Width 19.78 Normal 0.00-20.00 [facility] Comment on above: Result Comment: For ED adult patients suspected of sepsis, MDW<=20.0 does not rule out sepsis or risk of sepsis Performed By: #### C LETICIA DELUCA ANEU, MDW, LIP, GFR, CMP #### [address] [address] .NEUABSon 11-30-2024 Neutrophil, Absolute 8.2 10 3/mcL High 2.3-8.[address] [facility] Comment on above: Performed By: #### C LETICIA DELUCA ANEU, MDW, LIP, GFR, CMP #### [address] [address] .Urinalysis Microscopic (AO) on 11-30-2024 UA RBC 5-10 Abnormal None Seen [facility] Comment on above: Performed By: #### U A UAMICAO #### [place] [id number] UA Squam Epithelial 5-10 Abnormal None Seen [facility] Comment on above: Performed By: #### U A UAMICAO #### [place] [address] UA WBC 0-5 Abnormal None Seen [facility] Comment on above: Performed By: #### U GUSTAVO FerreiraMICAO #### [place] [address] CBCon 11-30-2024 Erythrocyte distribution width (RBC) [Ratio] 13.7 % Normal 11.5-15.5 [facility] Comment on above: Performed By: #### C BC, ADIFF, ANEU, MDW, LIP, GFR, CMP #### [place] [address] Hematocrit (Bld) [Volume fraction] 38.0 % Normal 34.0-46.0 [facility] Comment on above: Performed By: #### C BC, ADIFF, ANEU, MDW, LIP, GFR, CMP #### [place] [address] Hgb 13.1 G/dL Normal 12.0-16.0 [facility] Comment on above: Performed By: #### C BC, ADIFF, ANEU, MDW, LIP, GFR, CMP #### [place] [address] MCH (RBC) [Entitic mass] 30.6 pg Normal 27.0-33.0 [facility] Comment on above: Performed By: #### C BC, ADIFF, ANEU, MDW, LIP, GFR, CMP #### [place] [address] MCHC 34.5 G/dL Normal 32.0-36.0 [facility] Comment on above: Performed By: #### C BC, ADIFF, ANEU, MDW, LIP, GFR, CMP #### [place] [address] MCV (RBC) [Entitic vol] 88.6 fL Normal 80.0-99.0 [facility] Comment on above: Performed By: #### C BC, ADIFF, ANEU, MDW, LIP, GFR, CMP #### [address] [address] Platelet 265 10 3/mcL Normal 150-450 [facility] Comment on above: Performed By: #### C SANDRINE, LETICIA, VANESA, MDW, LIP, GFR, CMP #### [id number] [place], [place] [address] Platelet mean volume (Bld) [Entitic vol] 7.8 fL Normal 6.6-10.5 [facility] Comment on above: Performed By: #### C BC, LETICIA, ANEU, MDW, LIP, GFR, CMP #### [address] [address] RBC 4.28 10 6/mcL Normal 4.10-5.30 [facility] Comment on above: Performed By: #### C BC, LETICIA, VANESA, MDW, LIP, GFR, CMP #### [address] [address] WBC 13.6 10 3/mcL High 4.5-10.8 [facility] Comment on above: Performed By: #### C SANDRINE, LETICIA, VANESA, MDW, LIP, GFR, CMP #### [address] [address] CMPon 11-30-2024 AST/SGOT x Normal 10-40 [facility] Comment on above: Result Comment: Unab le to obtain AST result due to lipemia; Godwin Mcmanus notified, physician ok with not having this result. 11/30/2024 20:38:49 EDT EH Performed By: #### C BC, LETICIA, ANEU, MDW, LIP, GFR, CMP #### [address] [address] Albumin Level 3.8 G/dL Normal 3.5-5.0 [facility] Comment on above: Performed By: #### C BC, LETICIA, ANEU, MDW, LIP, GFR, CMP #### [address] [address] Albumin/Globulin [Mass ratio] 1.1 {ratio} Normal 1.1-2.5 [facility] Comment on above: Performed By: #### C BC, ADIFF, ANEU, MDW, LIP, GFR, CMP #### [address] [address] ALP [Catalytic activity/Vol] 145 U/L High 40-135 [facility] Comment on above: Performed By: #### C BC, ADIFF, ANEU, MDW, LIP, GFR, CMP #### [address] [address] ALT [Catalytic activity/Vol] 30 U/L Normal 14-59 [facility] Comment on above: Performed By: #### C BC, ADIFF, ANEU, MDW, LIP, GFR, CMP #### [place] [address] Bili Total 0.6 mg/dL Normal 0.2-1.0 [facility] Comment on above: Result Comment: Use of this assay is not recommended for patients undergoing treatment with eltrombopag due to the potential for falsely elevated results. Performed By: #### C BC, ADIFF, ANEU, MDW, LIP, GFR, CMP #### [place] [id number] BUN/Creatinine Ratio 10 ratio Normal 7-27 [facility] Comment on above: Performed By: #### C BC, ADIFF, ANEU, MDW, LIP, GFR, CMP #### [address] [address] Calcium [Mass/Vol] 8.6 mg/dL Normal 8.4-10.2 [facility] Comment on above: Performed By: #### C BC, ADIFF, ANEU, MDW, LIP, GFR, CMP #### [address] [address] Chloride [Moles/Vol] 104 mmol/L Normal 98-107 [facility] Comment on above: Performed By: #### C BC, ADIFF, ANEU, MDW, LIP, GFR, CMP #### [address] [address] CO2 [Moles/Vol] 23 mmol/L Normal 22-29 [facility] Comment on above: Performed By: #### C SANDRINE, VANESA KELLY MDW, LIP, GFR, CMP #### [address] [address] Creatinine [Mass/Vol] 1.05 mg/dL High 0.55-1.02 [facility] Comment on above: Result Comment: Test ing performed on [employer] Dimension EXL analyzer using a modified kinetic Eleuterio technique. Performed By: #### C SANDRINE, LETICIA, VANESA, W, LIP, GFR, CMP #### [place] [address] Electrolyte Balance 11.0 mEq/L Normal 4.0-15.0 [facility] Comment on above: Performed By: #### C LETICIA DELUCA ANEU, W, LIP, GFR, CMP #### [place] [address] Globulin 3.6 G/dL Normal 1.5-3.8 [facility] Comment on above: Performed By: #### C LETICIA DELUCA ANEU, MDW, LIP, GFR, CMP #### [place] [address] Glucose [Mass/Vol] 125 mg/dL High 70-105 [facility] Comment on above: Performed By: #### C LETICIA DELUCA ANEU, MDW, LIP, GFR, CMP #### [place] [address] Potassium [Moles/Vol] 3.6 mmol/L Normal 3.5-5.1 [facility] Comment on above: Performed By: #### C LETICIA DELUCA ANEU, MDW, LIP, GFR, CMP #### [place] [address] Sodium [Moles/Vol] 138 mmol/L Normal 136-145 [facility] Comment on above: Performed By: #### C SANDRINE, LETICIA, VANESA, MDW, LIP, GFR, CMP #### [id number] [place], [place] [address] Total Protein 7.4 G/dL Normal 6.4-8.2 [facility] Comment on above: Performed By: #### C LETICIA DELUCA ANEU, MDW, LIP, GFR, CMP #### [id number] [place], [place] [address] Urea nitrogen [Mass/Vol] 10 mg/dL Normal 7-18 [facility] Comment on above: Performed By: #### C LETICIA DELUCA ANEU, MDW, LIP, GFR, CMP #### [id number] [place], [place] [address] CNOVon 11-30-2024 CNOV Office Visit (INTMWS ) -------- SALLY VARGAS ([id number]) 1980 F Date Time Provider Department 11/30/24 11:20 AM [facility] During your visit today, we recorded the following information about you: Pulse Blood pressure Weight 81/minute 128/80 96 kg Merced Hutchinson APRN.[employer] 11/30/2024 11:32 AM Signed SUBJECTIVE Sallyjesse Vargas is a 44 year old female [...] NASAL) 0.65 % nasal spray Use 1 [place] in the nose as needed. gabapentin (NEURONTIN) [...] Disorder - 03/31/2016 (A priority) Comment: Seeing [facility]. Reactive Depression - 03/31/2016 (A priority) Comment: [facility]. Migraine Without Aura - 05/17/2008 (A priority) Comment: Has used imitrex with good response; Adjustment Insomnia - 03/31/2016 (B priority) Allergic rhinitis, cause unspecified - 05/17/2008 (B priority) Comment: Spring and summer Calculus of Kidney - 05/17/2008 (C priority) Comment: Sees Dr. Nicolas: Hospitalized age 20, and again later -- no procedures so far ([facility], [facility]) Cigarette Smoker - (more content not included)... Normal [facility] CT ABD/PELVIS W/ IV CONTRAST [...] 9:10:49 PM Ordering Provider: TARUN VAZQUEZ Normal [facility] LIPon 11-30-2024 Lipase Level 45 U/L Normal 16-77 [facility] Comment on above: Performed By: #### C BC, ADDELBERT, ANEU, MDW, LIP, GFR, CMP #### [address] [address] UAon 11-30-2024 Color (U) Yellow Normal [facility] Comment on above: Performed By: #### U A, UAMICAO #### [address] [address] Glucose (U) [Mass/Vol] Negative Normal Negative [facility] Comment on above: Performed By: #### U A, UAMICAO #### [address] [address] Ketones Ql (U) Negative Normal Negative [facility] Comment on above: Performed By: #### U A, UAMICAO #### [address] [address] UA Appear Slightly Cloudy Abnormal Clear [facility] Comment on above: Performed By: #### U A, UAMICAO #### [address] [address] UA Blood Moderate Abnormal Negative [facility] Comment on above: Performed By: #### U A, UAMICAO #### [place] [address] UA Leuk Est Negative Normal Negative [facility] Comment on above: Performed By: #### U A, UAMICAO #### [place] [address] UA Nitrite Negative Normal Negative [facility] Comment on above: Performed By: #### U A, UAMICAO #### [place] [address] UA pH 6.0 Normal 5.0 - 8.0 [facility] Comment on above: Performed By: #### U A, UAMICAO #### [place] [address] UA Protein Negative Normal Negative [facility] Comment on above: Performed By: #### U A, UAMICAO #### [place] [address] UA Spec Grav 1.010 Abnormal 1.015-1.025 [facility] Comment on above: Performed By: #### U A, UAMICAO #### [place] [address] UA Specimen Type Clean Catch Normal [facility] Comment on above: Performed By: #### U A, UAMICAO #### [place] [address] UA Urobilinogen 0.2 E.U./dL Normal 0.2-1.0 [facility] Comment on above: Performed By: #### U A, UAMICAO #### [place] [address] Urobilinogen (U) [Mass/Vol] Negative Normal Negative [facility] Comment on above: Performed By: #### U A, UAMICAO #### [place] [address] Absolute neutrophil countOrd ered By: ED PROVIDER on 11-17-2024 Neutrophils (Bld) [#/Vol] 7.1 10*3/uL 2.0-7.7 [facility] Anion gap in Serum or Plasma Ordered By: Chance Botello on 11-17-2024 Anion gap [Moles/Vol] 12 mmol/L 5-15 [facility] BUN/creatinine ratioOrdered By: Chance Botello on 11-17-2024 Urea nitrogen/Creatinine [Mass ratio] 11.7 mg/mg 10-20 [facility] Basophil percentageOrdered B y: ED PROVIDER on 11-17-2024 Basophils/100 WBC (Bld) 0.6 % 0-1 [facility] Bilirubin Test strip Ql (U)O rdered By: ED PROVIDER on 11-17-2024 Bilirubin Ql (U) Negative Negative [facility] Bilirubin, totalOrdered By: Chance Botello on 11-17-2024 Bilirubin [Mass/Vol] 0.31 mg/dL 0.00-1.30 [facility] CBC W/Diff, Automatedon Absolute Lymph 3.78 X10 3/uL Normal 0.83-4.51 [facility] Comment on above: Performed By: #### L 100.0100, L500.4050 #### [facility] [address] [place], [address] Absolute Neut 7.1 X10 3/uL Normal 2.0-7.7 [facility] Comment on above: Performed By: #### L 100.0100, L500.4050 #### [facility] [address] [place], [address] Basophils/100 WBC (Bld) 0.6 % Normal 0-1 [facility] Comment on above: Performed By: #### L 100.0100, [id number] #### [facility] [address] [place], [address] Eosinophils/100 WBC (Bld) 1.0 % Normal 0-5 [facility] Comment on above: Performed By: #### L 100.0100, [id number] #### [facility] [address] [place], [address] Erythrocyte distribution width (RBC) [Ratio] 13.2 % Normal 11.6-14.6 [facility] Comment on above: Performed By: #### L 100.0100, [id number] #### [facility] [address] [place], [address] Hematocrit (Bld) [Volume fraction] 39.8 % Normal 37-47 [facility] Comment on above: Performed By: #### L 100.0100, L500.4050 #### [facility] [address] [place], [address] Hemoglobin (Bld) [Mass/Vol] 13.2 g/dL Normal 12.0-15.0 [facility] Comment on above: Performed By: #### L 100.0100, L500.4050 #### [facility] [address] [place], [address] IG% 1.000 High 0.0-0.9 [facility] Comment on above: Result Comment: IG% - Immature Granulocytes (promyelocytes, myelocytes and metamyelocytes) > 1% indicates that a LEFT SHIFT is Present. Performed By: #### L 100.0100, L500.4050 #### [facility] [address] [place], [address] Lymphocytes/100 WBC (Bld) 32.0 % Normal 19-41 [facility] Comment on above: Performed By: #### L 100.0100, L500.4050 #### [facility] [address] [place], [address] MCH (RBC) [Entitic mass] 30.0 pg Normal 27.0-32.0 [facility] Comment on above: Performed By: #### L 100.0100, L500.4050 #### [facility] [address] [place], [address] MCHC (RBC) [Mass/Vol] 33.2 g/dL Normal 32-36 [facility] Comment on above: Performed By: #### L 100.0100, L500.4050 #### [facility] [address] [place], [address] MCV (RBC) [Entitic vol] 90.5 fL Normal 81-99 [facility] Comment on above: Performed By: #### L 100.0100, L500.4050 #### [facility] [address] [place], [address] Monocytes/100 WBC (Bld) 4.8 % Normal 0-10 [facility] Comment on above: Performed By: #### L 100.0100, L500.4050 #### [facility] [address] [place], [address] Neutrophils/100 WBC (Bld) 60.6 % Normal 47-70 [facility] Comment on above: Performed By: #### L 100.0100, L500.4050 #### [facility] [address] [place], [address] Nucleated RBC (Bld) [#/Vol] 0 10*3/uL Normal 0-5 [facility] Comment on above: Performed By: #### L 100.0100, L500.4050 #### [facility] [address] [place], [address] Platelet mean volume (Bld) [Entitic vol] 9.8 fL Normal 6.2-12.0 [facility] Comment on above: Performed By: #### L 100.0100, L500.4050 #### [facility] [address] [place], [address] Platelets (Bld) [#/Vol] 292 10*3/uL Normal 150-450 [facility] Comment on above: Performed By: #### L 100.0100, L500.4050 #### [facility] [address] [place], [address] RBC (Bld) [#/Vol] 4.40 10*6/uL Normal 4.2-5.4 [facility] Comment on above: Performed By: #### L 100.0100, L500.4050 #### [facility] [address] [place], [address] RDW SD 43.5 fl Normal 35.1-43.9 [facility] Comment on above: Performed By: #### L 100.0100, L500.4050 #### [facility] [address] [place], [address] WBC (Bld) [#/Vol] 11.8 10*3/uL High 4.4-11.0 [facility] Comment on above: Performed By: #### L 100.0100, L500.4050 #### [facility] [address] [place], [address] CNOVon 11-17-2024 CNOV Office Visit (INTMWS ) -------- SALLY VARGAS ([id number]) 1980 F Date Time Provider Department 11/17/24 2:40 PM ROBBIN HERNANDEZ INTMWS During your visit today, we recorded the following information about you: Pulse Blood pressure Weight 100/minute 136/76 94.4 kg Robbin Hernandez MD 11/17/2024 5:02 PM Signed This note was created using NXT-ID. Subjective Patient presents with: Left leg pain [...] NASAL) 0.65 % nasal spray Use 1 [place] in the nose as needed. gabapentin (NEURONTIN) [...] raise te (more content not included)... Normal [facility] Carbon dioxide, total [Moles /volume] in Central venous bloodOrdered By: Chance Botello on 11-17-2024 CO2 [Moles/Vol] 23.8 mmol/L 21.0-32.0 [facility] Chloride assayOrdered By: Jose Botello on 11-17-2024 Chloride [Moles/Vol] 103 mmol/L 98-108 [facility] Comprehensive Metabolic Prof ilon 11-17-2024 Albumin [Mass/Vol] 4.5 g/dL Normal 3.5-5.0 [facility] Comment on above: Performed By: #### L 100.0100, L500.4050 #### [facility] [address] [place], [address] Albumin/Globulin [Mass ratio] 1.3 {ratio} Normal 0.9-2.4 [facility] Comment on above: Performed By: #### L 100.0100, L500.4050 #### [facility] [address] [place], [address] ALK PHOS 143 U/L High 35-104 [facility] Comment on above: Performed By: #### L 100.0100, L500.4050 #### [facility] [address] [place], [address] ALT [Catalytic activity/Vol] 22 U/L Normal <=34 [facility] Comment on above: Performed By: #### L 100.0100, L500.4050 #### [facility] [address] [place], [address] AST [Catalytic activity/Vol] 18 U/L Normal <=31 [facility] Comment on above: Performed By: #### L 100.0100, L500.4050 #### [facility] [address] [place], [address] Bilirubin [Mass/Vol] 0.31 mg/dL Normal 0.00-1.30 [facility] Comment on above: Performed By: #### L 100.0100, L500.4050 #### [facility] [address] [place], [address] BUN/CRE 11.7 RATIO Normal 10-20 [facility] Comment on above: Performed By: #### L 100.0100, L500.4050 #### [facility] [address] [place], [address] Calcium [Mass/Vol] 9.4 mg/dL Normal 7.6-11.0 [facility] Comment on above: Performed By: #### L 100.0100, L500.4050 #### [facility] [address] [place], [address] Chloride [Moles/Vol] 103 mmol/L Normal 98-108 [facility] Comment on above: Performed By: #### L 100.0100, L500.4050 #### [facility] [address] [place], [address] CO2 [Moles/Vol] 23.8 mmol/L Normal 21.0-32.0 [facility] Comment on above: Performed By: #### L 100.0100, L500.4050 #### [facility] [address] [place], [address] Creatinine [Mass/Vol] 1.00 mg/dL Normal 0.70-1.20 [facility] Comment on above: Performed By: #### L 100.0100, L500.4050 #### [facility] [address] [place], [address] ECRCL 74.65 ml/min Normal 50-250 [facility] Comment on above: Performed By: #### L 100.0100, L500.4050 #### [facility] [address] [place], [address] GAP 12 Normal 5-15 [facility] Comment on above: Performed By: #### L 100.0100, L500.4050 #### [facility] [address] [place], [address] GFR/1.73 sq M.predicted among non-blacks MDRD (S/P/Bld) [Vol rate/Area] 71 mL/min/{1.73_m2} Normal >60 [facility] Comment on above: Result Comment: mL/m in/1.73m2 CKD-EPI Creatinine Equation (2020) Performed By: #### L 100.0100, L500.4050 #### [facility] [address] [place], [address] Globulin (S) [Mass/Vol] 3.5 g/dL Normal 2.2-4.2 [facility] Comment on above: Performed By: #### L 100.0100, L500.4050 #### [facility] [address] [place], [address] Glucose [Mass/Vol] 95 mg/dL Normal 70-99 [facility] Comment on above: Performed By: #### L 100.0100, L500.4050 #### [facility] [address] [place], [address] Potassium [Moles/Vol] 4.0 mmol/L Normal 3.3-5.1 [facility] Comment on above: Performed By: #### L 100.0100, L500.4050 #### [facility] [address] [place], [address] Sodium [Moles/Vol] 140 mmol/L Normal 133-145 [facility] Comment on above: Performed By: #### L 100.0100, L500.4050 #### [facility] [address] [place], [address] T PROT 8.0 g/dL Normal 5.9-8.4 [facility] Comment on above: Performed By: #### L 100.0100, L500.4050 #### [facility] [address] [place], [address] Urea nitrogen [Mass/Vol] 12 mg/dL Normal 4-19 [facility] Comment on above: Performed By: #### L 100.0100, L500.4050 #### [facility] [address] [place], [address] Emergency Department Summary on 11-17-2024 Emergency Department Summary [facility] Medical Records Department [address] [place] [address] Emergency Department Summary 11/17/24 MR#: [id number] Acct: [id number] Name: SALLY VARGAS Rep #: [id number] : 1980 44 From: Chance Botello DO PCP: Dr. Silverio Haley MD Status:REG ER Location: ED HPI History of Present [...] management. She states that she called her director call center sales and they scheduled appointment for the of this month. Patient states that she does have some burning with urination as well and notes that she has a history of pancreatitis and kidney stone therefore she was concerned for these prompting her to come here for the valuation management. Patient denies any sick contacts [facility] Medical History Cancer Depression Rheumatoid [...] hydronephrosis History of renal calculi Home Medications ???Medication ???Instructions ???Recorded ???Last Taken ???Type gabapentin 400 mg capsule 400 mg PO TID PRN NEUROPATHY 10/0312/02/23 History aripiprazole 10 mg tablet 10 mg PO DAILY DEPRESSION 10/25/23 12/02/23 History lorazepam 0.5 mg tablet 0.5 mg PO DAILY PRN ANXIETY #7 Unknown Rx tabs mesalamine 1.2 gram tablet,delayed 2.4 g (2 x 1.2 gram) PO DAILY 30 02/09/24 Unknown Rx release days #60 tabs trazodone 50 mg tablet 50 mg PO QHS 02/23/24 Unknown Hist ory hyoscyamine sulfate 0.125 mg 0.125 mg PO Q6H PRN abdominal 02/12 11/07 Unknown Rx disintegrating tablet discomfort #10 tabs diphenhydramine HCl 25 mg capsule 25 mg PO QHS 05/25/24 Unknown His tory (Allergy (diphenhydramine)) escitalopram oxalate 20 mg tablet 20 mg PO DAILY 05/25/24 Unknown H istory pantoprazole 40 mg tablet,delayed 40 mg PO DAILY 05/25/24 Unknown H istory release promethazine 25 mg tablet 25 mg PO Q8H PRN PRN 05/25/24 Unkn own History nausea/vomiting ciprofloxacin HCl 500 mg tablet 500 mg PO BID 5 days #10 TABLETS 0 06/13/24 Unknown Rx cyclobenzaprine 10 mg tablet 10 mg PO TID PRN Muscle Spasm #15 08/21/24 Unknown Rx TABLETS hyoscyamine sulfate 0.125 mg 0.125 mg PO Q6H 4 days #16 tabs Unknown Rx tablet (Levsin) ondansetron 4 mg disintegrating 4 mg PO Q6H PRN nausea and 5 Unknown Rx tablet vomiting #20 tabs ondansetron 4 mg disintegrating 4 mg PO Q6H PRN nausea and 5 Unknown Rx tablet vomiting #20 tabs Allergy/AdvReac [...] Narrative Constitutional: Denies fevers, chills, headaches, lightness, dizz (more content not included)... Normal [facility] Eosinophil percentageOrdered By: ED PROVIDER on 11-17-2024 Eosinophils/100 WBC (Bld) 1.0 % 0-5 [facility] Epithelial cells.squamous LM Ql (Urine sed)Ordered By: ED PROVIDER on 11-17-2024 Epithelial cells.squamous LM.HPF (Urine sed) [#/Area] 0 /[HPF] 5-10 [facility] Erythrocyte distribution wid th ratioOrdered By: ED PROVIDER on 11-17-2024 Erythrocyte distribution width (RBC) [Ratio] 13.2 % 11.6-14.6 [facility] Erythrocyte distribution wid th standard deviationOrdered By: ED PROVIDER on 11-17-2024 Erythrocyte distribution width (RBC) [Entitic vol] 43.5 fL 35.1-43.9 [facility] Estimation of creatinine linda aranceOrdered By: Chance Botello on 11-17-2024 Estimated Creatinine Clearance Calc 74.65 ml/min 50-250 [facility] GFR/1.73 sq M.predicted miroslava g non-blacks MDRD (S/P/Bld) [Vol rate/Area]Ordered By: Chance Botello on 11-17-2024 Estimated GFR (MDRD) Non-Af Amer 71 >60 [facility] Comment on above: mL/min/1.73m2 CKD-EP I Creatinine Equation (2020) Glucose Ql (U)Ordered By: ED PROVIDER on 11-17-2024 Urine Glucose (UA) Normal mg/dl Normal [facility] Hematocrit Auto (Bld) [Volum e fraction]Ordered By: ED PROVIDER on 11-17-2024 Hematocrit (Bld) [Volume fraction] 39.8 % 37-47 [facility] Hemoglobin measurementOrdere d By: ED PROVIDER on 11-17-2024 Hemoglobin (Bld) [Mass/Vol] 13.2 g/dL 12.0-15.0 [facility] Immature granulocytes/100 WB C Auto (Bld)Ordered By: ED PROVIDER on 11-17-2024 Immature granulocytes/100 WBC (Bld) 1.000 % High 0.0-0.9 [facility] Comment on above: IG% - Immature Granu locytes (promyelocytes, myelocytes and metamyelocytes) > 1% indicates that a LEFT SHIFT is Present. Ketones Test strip Ql (U)Ord ered By: ED PROVIDER on 11-17-2024 Ketones Ql (U) Negative Negative [facility] - Chemistry and C hemistry - challengeOrdered By: Chance Botello on 11-17-2024 AST [Catalytic activity/Vol] 18 U/L <32 [facility] Lymphocytes Auto (Unsp spec) [#/Vol]Ordered By: ED PROVIDER on 11-17-2024 Lymphocytes (Bld) [#/Vol] 3.78 10*3/uL 0.83-4.51 [facility] Lymphocytes/100 WBC Auto (Un sp spec)Ordered By: ED PROVIDER on 11-17-2024 Lymphocytes/100 WBC (Bld) 32.0 % 19-41 [facility] MCV (mean corpuscular volume ) determinationOrdered By: ED PROVIDER on 11-17-2024 MCV (RBC) [Entitic vol] 90.5 fL 81-99 [facility] Mean corpuscular hemoglobin (MCH) determinationOrdered By: ED PROVIDER on 11-17-2024 MCH (RBC) [Entitic mass] 30.0 pg 27.0-32.0 [facility] Mean corpuscular hemoglobin concentration (MCHC) determinationOrdered By: ED PROVIDER on 11-17-2024 MCHC (RBC) [Mass/Vol] 33.2 g/dL 32-36 [facility] Mean platelet volume determi nationOrdered By: ED PROVIDER on 11-17-2024 Platelet mean volume (Bld) [Entitic vol] 9.8 fL 6.2-12.0 [facility] Microscopic analysis of urin e for red blood cells (RBC)Ordered By: ED PROVIDER on 11-17-2024 Urine RBC 0-5 SEEN /hpf 0-5 [facility] Monocyte percentageOrdered B y: ED PROVIDER on 11-17-2024 Monocytes/100 WBC (Bld) 4.8 % 0-10 [facility] Mucus LM Ql (Urine sed)Order ed By: ED PROVIDER on 11-17-2024 Mucus Ql (Urine sed) 0 SEEN /hpf [facility] Neutrophil percentageOrdered By: ED PROVIDER on 11-17-2024 Neutrophils/100 WBC (Bld) 60.6 % 47-70 [facility] Nitrite Test strip Ql (U)Ord ered By: ED PROVIDER on 11-17-2024 Nitrite Ql (U) Negative Negative [facility] Nucleated red blood cell per centageOrdered By: ED PROVIDER on 11-17-2024 Nucleated RBC/100 WBC (Bld) [Ratio] 0 % 0-5 [facility] Platelet countOrdered By: ED PROVIDER on 11-17-2024 Platelets (Bld) [#/Vol] 292 10*3/uL 150-450 [facility] Potassium (Unsp spec) [Mass/ Vol]Ordered By: Chance Botello on 11-17-2024 Potassium [Moles/Vol] 4.0 mmol/L 3.3-5.1 [facility] Protein Test strip Ql (U)Ord ered By: ED PROVIDER on 11-17-2024 Protein Ql (U) Negative Negative [facility] RBC Auto (Bld) [#/Vol]Ordere d By: ED PROVIDER on 11-17-2024 RBC (Bld) [#/Vol] 4.40 10*6/uL 4.2-5.4 [facility] Serum creatinine measurement (mass/volume)Ordered By: Chance Botello on 11-17-2024 Creatinine [Mass/Vol] 1.00 mg/dL 0.70-1.20 [facility] Serum globulin measurementOr dered By: Chance Botello on 11-17-2024 Globulin (S) [Mass/Vol] 3.5 g/dL 2.2-4.2 [facility] Serum glucose measurement (m ass/volume)Ordered By: Chance Botello on 11-17-2024 Glucose [Mass/Vol] 95 mg/dL 70-99 [facility] Serum or plasma alanine umanzor otransferase (ALT) measurementOrdered By: Chance Botello on 11-17-2024 ALT [Catalytic activity/Vol] 22 U/L <35 [facility] Serum or plasma albumin shelley urement (mass/volume)Ordered By: Chance Botello on 11-17-2024 Albumin [Mass/Vol] 4.5 g/dL 3.5-5.0 [facility] Serum or plasma albumin/glob ulin mass ratioOrdered By: Chance Botello on 11-17-2024 Albumin/Globulin [Mass ratio] 1.3 {ratio} 0.9-2.4 [facility] Serum or plasma alkaline omero sphatase measurementOrdered By: Chance Botello on 11-17-2024 ALP [Catalytic activity/Vol] 143 U/L High 35-104 [facility] Serum or plasma calcium shelley urement (mass/volume)Ordered By: Chance Botello on 11-17-2024 Calcium [Mass/Vol] 9.4 mg/dL 7.6-11.0 [facility] Serum or plasma urea nitroge n measurement (mass/volume)Ordered By: Chance oBtello on 11-17-2024 Urea nitrogen [Mass/Vol] 12 mg/dL 4-19 [facility] Sodium levelOrdered By: Vivi Botello on 11-17-2024 Sodium [Moles/Vol] 140 mmol/L 133-145 [facility] Total proteinOrdered By: Johnathon elizabeth Botello on 11-17-2024 Protein [Mass/Vol] 8.0 g/dL 5.9-8.4 [facility] Urinalysis, Completeon 11-17 EPI,SQUAMOUS 0-5 SEEN Normal 5-10 [facility] Comment on above: Order Comment: CLEAN CATCH Performed By: #### P H.PYLORI #### [facility] [address] [place], [address] RBC 0-5 SEEN Normal 0-5 [facility] Comment on above: Order Comment: CLEAN CATCH Performed By: #### P H.PYLORI #### [facility] [address] [place], [address] BACTERIA 0 SEEN Normal None Seen [facility] Comment on above: Order Comment: CLEAN CATCH Performed By: #### P H.PYLORI #### [facility] [address] [place], [address] Mucus Ql (Urine sed) 0 SEEN Normal [facility] Comment on above: Order Comment: CLEAN CATCH Performed By: #### P H.PYLORI #### [facility] [address] [place], [address] WBC 0 SEEN Normal 0-5 [facility] Comment on above: Order Comment: CLEAN CATCH Performed By: #### P H.PYLORI #### [facility] [address] [place], [place], [address] Urine blood detectionOrdered By: ED PROVIDER on 11-17-2024 Urine Occult Blood 10 /ul High Negative [facility] Urine clarityOrdered By: ED PROVIDER on 11-17-2024 Clarity (U) Sl. Cloudy Clear [facility] Urine color determinationOrd ered By: ED PROVIDER on 11-17-2024 Color (U) Yellow Yellow [facility] Urine leukocyte esterase det ection by dipstickOrdered By: ED PROVIDER on 11-17-2024 Leukocyte esterase Test strip Ql (U) Negative Negative [facility] Urine pHOrdered By: ED PROVI ASHLEY on 11-17-2024 pH (U) 7.0 [pH] 5.0 - 8.0 [facility] Urine sediment bacteria coun t by microscopy (number/high power field)Ordered By: ED PROVIDER on 11-17-2024 Bacteria LM.HPF (Urine sed) [#/Area] 0 /[HPF] None Seen [facility] Urine specific gravity measu rementOrdered By: ED PROVIDER on 11-17-2024 Specific gravity (U) [Rel density] 1.010 1.002-1.030 [facility] Urobilinogen Ql (U)Ordered B y: ED PROVIDER on 11-17-2024 Urine Urobilinogen Normal mg/dl Normal [facility] White blood cell (WBC) count Ordered By: ED PROVIDER on 11-17-2024 WBC (Bld) [#/Vol] 11.8 10*3/uL High 4.4-11.0 [facility] White blood cell countOrdere d By: ED PROVIDER on 11-17-2024 Urine WBC 0 SEEN /hpf 0-5 [facility] CNPNon 11-16-2024 CNPN Telephone (INTMWS) -------- SALLY VARGAS ([id number]) 1980 F Date Time Provider Department 11/16/24 SILVERIO HALEY INTMWS During your visit today, [...] Date Reviewed: 11/04/2024 Reviewed by: Marcelino Bess APRN.[employer]CH[employer]ISING SPECIALIST - Fully Assessed Reason for Visit: Patient Question [4157] Prescriptions as of 11/17/2024 - benzocaine-menthol (CEPACOL) [...] NASAL) 0.65 % nasal spray Use 1 [place] in the nose as needed. - gabapentin [...] extremity [R (more content not included)... Normal [facility] ED MED ADMINISTRATION DETAIL on 11-16-2024 ED MED ADMINISTRATION DETAIL Normal [facility] ED NURSES CLINICAL NOTEon ED NURSES CLINICAL NOTE Normal [facility] ED ORDER SHEET (CPOE ONLY)on 11-16-2024 ED ORDER SHEET (CPOE ONLY) Normal [facility] ED PHYSICIAN CLINICAL REPORT on 11-16-2024 ED PHYSICIAN CLINICAL REPORT Normal [facility] ED PHYSICIAN DISCHARGE REPOR Ton 11-16-2024 ED PHYSICIAN DISCHARGE REPORT Normal [facility] ED SUPER BILLon 11-16-2024 ED SUPER BILL Normal [facility] ED VISIT SUMMARYon ED VISIT SUMMARY Normal [facility] ED VITALS FLOW SHEETon 11-16 ED VITALS FLOW SHEET Normal [facility] CBC + DIFFon 11-15-2024 Baso # 0.05 x10EE3/UL Normal 0.00 - 0.10 [facility] Comment on above: Performed By: #### 2 [id number] ####[facility],[address] [place] [address] Basophils/100 WBC (Bld) 0.4 % Normal 0.0 - 2.0 [facility] Comment on above: Performed By: #### 2 [id number] ####[facility],[address] [place] [address] CBC + DIFF Normal [facility] Comment on above: Result Comment: CBC- COMPLETE BLOOD COUNT Performed By: #### 2 [id number] ####[facility],[address] [place] [address] EO # 0.22 x10EE3/UL Normal 0.00 - 0.50 [facility] Comment on above: Performed By: #### 2 [id number] ####[facility],[address] [place], [place] [id number] Eosinophils/100 WBC (Bld) 2.0 % Normal 0.0 - 7.0 [facility] Comment on above: Performed By: #### 2 66095 ####[facility],[address] [place] [address] Erythrocyte distribution width (RBC) [Ratio] 13.5 % Normal 12.0 - 15.6 [facility] Comment on above: Performed By: #### 2 [id number] ####[facility],[address] [place] [address] Hematocrit (Bld) [Volume fraction] 41.3 % Normal 34.0 - 46.0 [facility] Comment on above: Performed By: #### 2 48875 ####[facility],[address] [place], [place] [id number] Hemoglobin (Bld) [Mass/Vol] 14.4 g/dL Normal 12.0 - 16.0 [facility] Comment on above: Performed By: #### 2 [id number] ####[facility],[address] [place] [address] Lymph # 3.39 x10EE3/UL High 0.80 - 2.80 [facility] Comment on above: Performed By: #### 2 67647 ####[facility],[address] [place] [address] Lymphocytes/100 WBC (Bld) 30.7 % Normal 20.0 - 45.0 [facility] Comment on above: Performed By: #### 2 [id number] ####[facility],[address] [place] [address] MANUAL DIFF N/A Normal [facility] Comment on above: Performed By: #### 2 [id number] ####[facility],[address] [place] [address] MCH (RBC) [Entitic mass] 31 pg Normal 27 - 33 [facility] Comment on above: Performed By: #### 2 73891 ####[facility],[address] [place] [address] MCHC 35 X10 3 Normal 32 - 36 [facility] Comment on above: Performed By: #### 2 56866 ####[facility],[address] [place] [address] MCV (RBC) [Entitic vol] 89 fL Normal 80 - 99 [facility] Comment on above: Performed By: #### 2 46585 ####[facility],[address] [place] [address] Bacon # 0.48 x10EE3/UL Normal 0.20 - 1.00 [facility] Comment on above: Performed By: #### 2 12748 ####[facility],[address] [place] [address] MONOS % 4.3 % Normal 0.0 - 10.0 [facility] Comment on above: Performed By: #### 2 95694 ####[facility],[address] [place] [address] Morphology Adrian (Bld) [Interp] N/A Normal [facility] Comment on above: Performed By: #### 2 [id number] ####[facility],[address] [place] [address] Neut # 6.91 x10EE3/UL Normal 1.50 - 7.10 [facility] Comment on above: Performed By: #### 2 07922 ####[facility],[address] [place] [address] 00409 Neutrophils/100 WBC (Bld) 62.6 % Normal 46.0 - 76.0 [facility] Comment on above: Performed By: #### 2 21481 ####[facility],[address] [place] [address] 99374 PLATELET 324 x10EE3/UL Normal 150 - 450 [facility] Comment on above: Performed By: #### 2 22202 ####[facility],[address] [place] [address] 88915 Platelet mean volume (Bld) [Entitic vol] 8.4 fL Normal 6.6 - 10.5 [facility] Comment on above: Result Comment: AUTO MATED DIFFERENTIAL Performed By: #### 2 98219 ####[facility],[address] [place] [address] 86367 RBC 4.64 x 10EE6/UL Normal 4.10 - 5.30 [facility] Comment on above: Performed By: #### 2 32737 ####[facility],[address] [place] [address] 22707 WBC 11.1 x 10EE3/UL High 4.5 - 10.8 [facility] Comment on above: Performed By: #### 2 67566 ####[facility],[address] [place] [address] 62521 CMP with eGFRon 11-15-2024 AGE 44 years Normal [facility] Comment on above: Performed By: #### 2 07217 ####[facility],[address] [place] [address] 62166 Albumin [Mass/Vol] 4.4 g/dL Normal 3.4 - 5.0 [facility] Comment on above: Performed By: #### 2 95094 ####[facility],[address] [place] [address] 17579 Albumin/Globulin [Mass ratio] 1.0 {ratio} Normal 0.9 - 1.6 [facility] Comment on above: Performed By: #### 2 36530 ####[facility],[address] [place] [address] 82789 ALK PHOS 155 U/L High 46 - 116 [facility] Comment on above: Performed By: #### 2 66217 ####[facility],[address] [place] [address] 81814 ALT [Catalytic activity/Vol] 32 U/L Normal 16 - 63 [facility] Comment on above: Performed By: #### 2 76138 ####[facility],[address] [place] [address] 27255 Anion gap [Moles/Vol] 12 mmol/L Normal 10 - 20 [facility] Comment on above: Performed By: #### 2 34711 ####[facility],[address] [place] [address] 33473 AST [Catalytic activity/Vol] 16 U/L Normal 13 - 39 [facility] Comment on above: Performed By: #### 2 39131 ####[facility],[address] [place] [address] 62263 B/C RATIO 8 ratio Normal 0 - 30 [facility] Comment on above: Performed By: #### 2 16453 ####[facility],[address] [place] [address] 42466 Bilirubin [Mass/Vol] 0.3 mg/dL Normal 0.2 - 1.0 [facility] Comment on above: Performed By: #### 2 89415 ####[facility],[address] [place] [address] 13774 Calcium [Mass/Vol] 9.5 mg/dL Normal 8.5 - 10.1 [facility] Comment on above: Performed By: #### 2 14123 ####[facility],[address] [place] [address] 92630 Chloride [Moles/Vol] 105 mmol/L Normal 98 - 107 [facility] Comment on above: Performed By: #### 2 33304 ####[facility],[address] [place] [address] 14653 CMP with eGFR Normal [facility] Comment on above: Result Comment: COMP REHENSIVE METABOLIC PANEL Performed By: #### 2 95061 ####[facility],[address] [place] [address] 89764 CO2 [Moles/Vol] 25.0 mmol/L Normal 21.0 - 32.0 [facility] Comment on above: Performed By: #### 2 53982 ####[facility],[address] [place] [address] 84064 Creatinine [Mass/Vol] 1.10 mg/dL High 0.55 - 1.02 [facility] Comment on above: Performed By: #### 2 29651 ####[facility],[address] [place] [address] 76945 eGFR 54 ML/MINUTE Low 60 - 999 [facility] Comment on above: Performed By: #### 2 07759 ####[facility],[address] [place] [address] 44372 GFR/1.73 sq M.predicted among non-blacks MDRD (S/P/Bld) [Vol rate/Area] mL/min/{1.73_m2} Normal 60 - 999 [facility] Comment on above: Result Comment: ACCO RDING TO THE NATIONAL KIDNEY DISEASE EDUCATION PROGRAM(NKDE), A NORMAL eGFRIS A VALUE GREATER THAN OR EQUAL TO 60 ML/MIN/1.73 SQ METERS.CHRONIC KIDNEY DISEASE: <60mL/MIN/1.73 SQ METERSKIDNEY FAILURE: <15mL/MIN/1.73 SQ METERSTHIS TEST SHOULD ONLY BE USED FOR PATIENTS 18 YEARS OF AGE AND OLDER. Performed By: #### 2 02663 ####[facility],[address] [place] [address] 55591 Globulin (S) [Mass/Vol] 4.2 g/dL High 1.5 - 3.8 [facility] Comment on above: Performed By: #### 2 70463 ####[facility],[address] [place] [address] 13666 Glucose [Mass/Vol] 107 mg/dL High 74 - 106 [facility] Comment on above: Performed By: #### 2 19877 ####[address] [address] Potassium [Moles/Vol] 3.4 mmol/L Low 3.5 - 5.1 [facility] Comment on above: Performed By: #### 2 62545 ####[facility],[address] [place] [address] 07198 Protein [Mass/Vol] 8.6 g/dL High 6.4 - 8.2 [facility] Comment on above: Performed By: #### 2 01477 ####[facility],[address] [place] [address] 11008 Sodium [Moles/Vol] 139 mmol/L Normal 136 - 145 [facility] Comment on above: Performed By: #### 2 40730 ####[address] 8[address]56 Urea nitrogen [Mass/Vol] 9 mg/dL Normal 7 - 18 [facility] Comment on above: Performed By: #### 2 73274 ####[address] [address] [address] ABDOMEN/PELVIS Won 2024 CT ABDOMEN/PELVIS W Normal [facility] LIPASEon 11-15-2024 Lipase [Catalytic activity/Vol] 66.0 U/L Normal 15.0 - 78.0 [facility] Comment on above: Result Comment: *PLE ASE NOTE THAT RANGES FOR LIPASE HAVE CHANGED OF 09/11/23 DUE TO AN ASSAYUPDATE BY THE SENIOR ACCOUNTING CLERK.THE NEW ASSAY RANGE IS 6-250 U/L, WITH A REFERENCERANGE OF 16-77 U/L. Performed By: #### 2 28785 ####[facility],[address] [place] [address] 74509 TROPONINon 11-15-2024 HS TROPONIN 5.9 pg/mL Normal 0.0 - 51.4 [facility] Comment on above: Performed By: #### 2 64888 ####[facility],[address] [place] [address] 48702 URINALYSISon 11-15-2024 Amorphous NONE Normal [facility] Comment on above: Performed By: #### 2 46754 ####[facility],[address] [place], [place] [id number] Bacteria NONE Normal [facility] Comment on above: Performed By: #### 2 84205 ####[facility],[address] [place] [address] 54019 Bilirubin Ql (U) Negative Normal NORMAL: NEGATIVE [facility] Comment on above: Performed By: #### 2 07665 ####[facility],[address] [place] [address] 19942 Casts NONE Normal [facility] Comment on above: Performed By: #### 2 99618 ####[facility],[address] [place] [address] 62177 Clarity (U) CLEAR Normal NORMAL: CLEAR [facility] Comment on above: Performed By: #### 2 93468 ####[facility],[address] [place] [address] 15278 Color (U) yellow Normal NORMAL: YELLOW [facility] Comment on above: Performed By: #### 2 83960 ####[facility],[address] [place] [address] 35767 Crystals LM Nom (Urine sed) NONE Normal [facility] Comment on above: Performed By: #### 2 35064 ####[facility],[address] [place] [address] 10530 Epi Cells MODERATE Normal [facility] Comment on above: Performed By: #### 2 55651 ####[facility],[address] [place] [address] 42236 Glucose Ql (U) NORM Normal NORMAL: NORMAL [facility] Comment on above: Performed By: #### 2 01656 ####[facility],[address] [place] [address] 99129 Hemoglobin Ql (U) 25 Abnormal NORMAL: NEGATIVE [facility] Comment on above: Performed By: #### 2 12866 ####[facility],[address] [place] [address] 02292 Ketone Negative Normal NORMAL: NEGATIVE [facility] Comment on above: Performed By: #### 2 26078 ####[facility],[address] [place] [address] 20857 Leukocytes Negative Normal NORMAL: NEGATIVE [facility] Comment on above: Performed By: #### 2 78414 ####[facility],[address] [place] [address] 39809 Mucous NONE Normal [facility] Comment on above: Performed By: #### 2 24518 ####[facility],[address] [place] [address] 25661 Nitrite Ql (U) Negative Normal NORMAL: NEGATIVE [facility] Comment on above: Performed By: #### 2 47895 ####[facility],[address] [place] [address] 84218 pH (U) 6 [pH] Normal NORMAL: 5.0-8.0 [facility] Comment on above: Performed By: #### 2 23753 ####[facility],[address] [place] [address] 82112 Protein Ql (U) 15 Abnormal NORMAL: NEGATIVE [facility] Comment on above: Performed By: #### 2 85494 ####[facility],[address] [place] [address] 24318 Rbc 0-5 Normal 0-3/hpf [facility] Comment on above: Performed By: #### 2 80114 ####[facility],[address] [place] [address] Sp [place] 1.020 Normal NORMAL: 1.010-1.030 [facility] Comment on above: Performed By: #### 2 34141 ####[facility],[address] [place] [address] Specimen Type R Normal [facility] Comment on above: Performed By: #### 2 93117 ####[facility],[address] [place] [address] Urinalysis dipstick W Reflex Microscopic panel (U) SEE BELOW Normal [facility] Comment on above: Result Comment: MICR OSCOPIC Performed By: #### 2 10098 ####[facility],[address] [place] [address] Urobilinog NORM Normal NORMAL: NORMAL [facility] Comment on above: Performed By: #### 2 99423 ####[facility],[address] [place], [place] [phone] Wbc 1-5 Normal 0-5/hpf [facility] Comment on above: Performed By: #### 2 61168 ####[facility],[address] [place], [place] [phone] Yeast NONE Normal [facility] Comment on above: Performed By: #### 2 46729 ####[facility],[address] [place], [place] [id number] URINE CULTURE [CCL]on 2024 Bacteria identified Cx Nom (U) Normal [facility] Comment on above: Performed By: #### 2 70408 ####[facility],[address] [place] [address] ED MED ADMINISTRATION DETAIL on 11-09-2024 ED MED ADMINISTRATION DETAIL Normal [facility] ED NURSES CLINICAL NOTEon ED NURSES CLINICAL NOTE Normal [facility] ED PHYSICIAN CLINICAL REPORT on 11-09-2024 ED PHYSICIAN CLINICAL REPORT Normal [facility] ED PHYSICIAN DISCHARGE REPOR Ton 11-09-2024 ED PHYSICIAN DISCHARGE REPORT Normal [facility] ED SUPER BILLon 11-09-2024 ED SUPER BILL Normal [facility] ED VISIT SUMMARYon ED VISIT SUMMARY Normal [facility] ED VITALS FLOW SHEETon 11-09 ED VITALS FLOW SHEET Normal [facility] Bacteria Ur Culton Bacteria identified Cx Nom (U) ORGANISM ID: 1 >=100,000 CFU/ml Normal urogenital pilar Normal [facility] Comment on above: Performed By: #### 6 30-4 ####[facility] LABCLIA [id number] [address] OF [facility] CBC + DIFFon 11-08-2024 Baso # 0.04 x10EE3/UL Normal 0.00 - 0.10 [facility] Comment on above: Performed By: #### 2 43758 ####[facility],[address] [place] [address] Basophils/100 WBC (Bld) 0.4 % Normal 0.0 - 2.0 [facility] Comment on above: Performed By: #### 2 95182 ####[facility],[address] [place] [address] CBC + DIFF Normal [facility] Comment on above: Result Comment: CBC- COMPLETE BLOOD COUNT Performed By: #### 2 59514 ####[facility],[address] [place] [address] EO # 0.28 x10EE3/UL Normal 0.00 - 0.50 [facility] Comment on above: Performed By: #### 2 75674 ####[facility],[address] [place] [address] Eosinophils/100 WBC (Bld) 2.3 % Normal 0.0 - 7.0 [facility] Comment on above: Performed By: #### 2 18281 ####[facility],[address] [place] [address] Erythrocyte distribution width (RBC) [Ratio] 13.0 % Normal 12.0 - 15.6 [facility] Comment on above: Performed By: #### 2 11568 ####[facility],[address] [place] [address] Hematocrit (Bld) [Volume fraction] 37.8 % Normal 34.0 - 46.0 [facility] Comment on above: Performed By: #### 2 02259 ####[facility],[address] [place] [address] Hemoglobin (Bld) [Mass/Vol] 13.6 g/dL Normal 12.0 - 16.0 [facility] Comment on above: Performed By: #### 2 65761 ####[facility],[address] [place] [address] Lymph # 3.70 x10EE3/UL High 0.80 - 2.80 [facility] Comment on above: Performed By: #### 2 49967 ####[facility],[address] [place], [place] [phone] Lymphocytes/100 WBC (Bld) 30.5 % Normal 20.0 - 45.0 [facility] Comment on above: Performed By: #### 2 08128 ####[facility],[address] [place] [address] 37380 MANUAL DIFF N/A Normal [facility] Comment on above: Performed By: #### 2 23067 ####[facility],[address] [place] [address] 07670 MCH (RBC) [Entitic mass] 32 pg Normal 27 - 33 [facility] Comment on above: Performed By: #### 2 60911 ####[facility],[address] [place] [address] 52504 MCHC 36 X10 3 Normal 32 - 36 [facility] Comment on above: Performed By: #### 2 01619 ####[facility],[address] [place] [address] 76783 MCV (RBC) [Entitic vol] 89 fL Normal 80 - 99 [facility] [place] [facility] Comment on above: Performed By: #### 2 52458 ####[facility],[address] [place] [address] Bacon # 0.69 x10EE3/UL Normal 0.20 - 1.00 [facility] Comment on above: Performed By: #### 2 04475 ####[facility],[address] [place] [address] MONOS % 5.7 % Normal 0.0 - 10.0 [facility] Comment on above: Performed By: #### 2 91806 ####[facility],[address] [place], [place] [phone] Morphology Adrian (Bld) [Interp] N/A Normal [facility] Comment on above: Performed By: #### 2 17155 ####[facility],[address] [place] [address] 07697 Neut # 7.43 x10EE3/UL High 1.50 - 7.10 [facility] Comment on above: Performed By: #### 2 85642 ####[facility],[address] [place], [place] [address] Neutrophils/100 WBC (Bld) 61.2 % Normal 46.0 - 76.0 [facility] Comment on above: Performed By: #### 2 80788 ####[facility],[address] [place] [address] PLATELET 265 x10EE3/UL Normal 150 - 450 [facility] Comment on above: Performed By: #### 2 14755 ####[facility],[address] [place] [address] 95281 Platelet mean volume (Bld) [Entitic vol] 8.1 fL Normal 6.6 - 10.5 [facility] Comment on above: Result Comment: AUTO MATED DIFFERENTIAL Performed By: #### 2 49122 ####[facility],[address] [place] [address] 12446 RBC 4.23 x 10EE6/UL Normal 4.10 - 5.30 [facility] Comment on above: Performed By: #### 2 75846 ####[facility],[address] [place] [address] 99262 WBC 12.1 x 10EE3/UL High 4.5 - 10.8 [facility] Comment on above: Performed By: #### 2 75629 ####[facility],[address] [place] [address] 33996 CMP with eGFRon 11-08-2024 AGE 44 years Normal [facility] Comment on above: Performed By: #### 2 97599 ####[facility],[address] [place] [address] 11909 Albumin [Mass/Vol] 4.2 g/dL Normal 3.4 - 5.0 [facility] Comment on above: Performed By: #### 2 60952 ####[facility],[address] [place] [address] 39559 Albumin/Globulin [Mass ratio] 1.1 {ratio} Normal 0.9 - 1.6 [facility] Comment on above: Performed By: #### 2 48914 ####[facility],[address] [place] [address] 94926 ALK PHOS 153 U/L High 46 - 116 [facility] Comment on above: Performed By: #### 2 15648 ####[facility],[address] [place] [address] 01869 ALT [Catalytic activity/Vol] 31 U/L Normal 16 - 63 [facility] Comment on above: Performed By: #### 2 55361 ####[facility],[address] [place] [address] 98928 Anion gap [Moles/Vol] 13 mmol/L Normal 10 - 20 [facility] Comment on above: Performed By: #### 2 39262 ####[facility],[address] [place] [address] 72832 AST [Catalytic activity/Vol] 15 U/L Normal 13 - 39 [facility] Comment on above: Performed By: #### 2 59526 ####[facility],[address] [place] [address] 27017 B/C RATIO 12 ratio Normal 0 - 30 [facility] Comment on above: Performed By: #### 2 56321 ####[facility],[address] [place] [address] 95681 Bilirubin [Mass/Vol] 0.4 mg/dL Normal 0.2 - 1.0 [facility] Comment on above: Performed By: #### 2 96586 ####[facility],[address] [place] [address] 59663 Calcium [Mass/Vol] 8.7 mg/dL Normal 8.5 - 10.1 [facility] Comment on above: Performed By: #### 2 59556 ####[facility],[address] [place] [address] 14984 Chloride [Moles/Vol] 106 mmol/L Normal 98 - 107 [facility] Comment on above: Performed By: #### 2 51837 ####[facility],[address] [place] [address] 60939 CMP with eGFR Normal [facility] Comment on above: Result Comment: COMP REHENSIVE METABOLIC PANEL Performed By: #### 2 20653 ####[facility],[address] [place] [address] 26881 CO2 [Moles/Vol] 23.8 mmol/L Normal 21.0 - 32.0 [facility] Comment on above: Performed By: #### 2 10145 ####[facility],[address] [place] [address] 66367 Creatinine [Mass/Vol] 1.19 mg/dL High 0.55 - 1.02 [facility] Comment on above: Performed By: #### 2 62747 ####[facility],[address] [place] [address] 74445 eGFR 49 ML/MINUTE Low 60 - 999 [facility] Comment on above: Performed By: #### 2 99501 ####[facility],[address] [place] [address] 71137 eGFR(AA) 59 ML/MINUTE Low 60 - 999 [facility] Comment on above: Result Comment: ACCO RDING TO THE NATIONAL KIDNEY DISEASE EDUCATION PROGRAM(NKDE), A NORMAL eGFRIS A VALUE GREATER THAN OR EQUAL TO 60 ML/MIN/1.73 SQ METERS.CHRONIC KIDNEY DISEASE: <60mL/MIN/1.73 SQ METERSKIDNEY FAILURE: <15mL/MIN/1.73 SQ METERSTHIS TEST SHOULD ONLY BE USED FOR PATIENTS 18 YEARS OF AGE AND OLDER. Performed By: #### 2 05035 ####[address] [address] Globulin (S) [Mass/Vol] 3.7 g/dL Normal 1.5 - 3.8 [facility] Comment on above: Performed By: #### 2 72961 ####[facility],[address] [place] [address] 98314 Glucose [Mass/Vol] 91 mg/dL Normal 74 - 106 [facility] Comment on above: Performed By: #### 2 72386 ####[address] 93360 Potassium [Moles/Vol] 3.2 mmol/L Low 3.5 - 5.1 [facility] Comment on above: Performed By: #### 2 08876 ####[facility],[address] [place] [address] Protein [Mass/Vol] 7.9 g/dL Normal 6.4 - 8.2 [facility] Comment on above: Performed By: #### 2 82075 ####[facility],[address] [place] [address] Sodium [Moles/Vol] 140 mmol/L Normal 136 - 145 [facility] Comment on above: Performed By: #### 2 60828 ####[facility],[address] [place] [address] Urea nitrogen [Mass/Vol] 14 mg/dL Normal 7 - 18 [facility] Comment on above: Performed By: #### 2 23889 ####[facility],[address] [place] [address] CT ABDOMEN/PELVIS WOon 11-08 CT ABDOMEN/PELVIS WO Normal [facility] LACTATEon 11-08-2024 Lactate [Moles/Vol] 1.1 mmol/L Normal 0.4 - 2.0 [facility] Comment on above: Performed By: #### 2 99812 ####[place] [address] LIPASEon 11-08-2024 Lipase [Catalytic activity/Vol] 47.0 U/L Normal 15.0 - 78.0 [facility] Comment on above: Result Comment: *PLE ASE NOTE THAT RANGES FOR LIPASE HAVE CHANGED OF 09/11/23 DUE TO AN ASSAYUPDATE BY THE SENIOR ACCOUNTING CLERK.THE NEW ASSAY RANGE IS 6-250 U/L, WITH A REFERENCERANGE OF 16-77 U/L. Performed By: #### 2 01340 ####[facility],[address] [place] [address] URINALYSISon 11-08-2024 Amorphous NONE Normal [facility] Comment on above: Performed By: #### 2 65633 ####[facility],[address] [place] [address] Bacteria 2+ Normal [facility] Comment on above: Performed By: #### 2 60678 ####[facility],[address] [place] [address] 05708 Bilirubin Ql (U) Negative Normal NORMAL: NEGATIVE [facility] Comment on above: Performed By: #### 2 31923 ####[facility],[address] [place] [address] 51020 Calcium Ox 1+ Normal NORMAL: NONE [facility] Comment on above: Performed By: #### 2 66606 ####[facility],[address] [place] [address] 35529 Casts NONE Normal [facility] Comment on above: Performed By: #### 2 92134 ####[facility],[address] [place] [address] 82100 Clarity (U) clear Normal NORMAL: CLEAR [facility] Comment on above: Performed By: #### 2 36050 ####[facility],[address] [place] [address] 72477 Color (U) saravanan Normal NORMAL: YELLOW [facility] Comment on above: Performed By: #### 2 98659 ####[facility],[address] [place] [address] 29499 Crystals LM Nom (Urine sed) SEE BELOW Normal [facility] Comment on above: Performed By: #### 2 49742 ####[facility],[address] [place] [address] 12411 Epi Cells MODERATE Normal [facility] Comment on above: Performed By: #### 2 13227 ####[facility],[address] [place] [address] 06141 Glucose Ql (U) NORM Normal NORMAL: NORMAL [facility] Comment on above: Performed By: #### 2 46657 ####[facility],[address] [place] [address] 80692 Hemoglobin Ql (U) 10 Abnormal NORMAL: NEGATIVE [facility] Comment on above: Performed By: #### 2 91294 ####[facility],[address] [place] [address] 39510 Ketone Negative Normal NORMAL: NEGATIVE [facility] Comment on above: Performed By: #### 2 17290 ####[facility],[address] [place] [address] 79913 Leukocytes 25 Abnormal NORMAL: NEGATIVE [facility] Comment on above: Performed By: #### 2 [id number] ####[facility],[address] [place] [address]907 Mucous TRACE Normal [facility] Comment on above: Performed By: #### 2 [id number] ####[facility],[address] [place], [place] [id number] Nitrite Ql (U) Negative Normal NORMAL: NEGATIVE [facility] Comment on above: Performed By: #### 2 99504 ####[facility],[address] [place] [address] pH (U) 5 [pH] Normal NORMAL: 5.0-8.0 [facility] Comment on above: Performed By: #### 2 65056 ####[facility],[address] [place], [place] [id number] Protein Ql (U) 15 Abnormal NORMAL: NEGATIVE [facility] Comment on above: Performed By: #### 2 69749 ####[facility],[address] [place], [place] [id number] Rbc 0-5 Normal 0-3/hpf [facility] Comment on above: Performed By: #### 2 56272 ####[facility],[address] [place], [place] [id number] Sp [place] 1.025 Normal NORMAL: 1.010-1.030 [facility] Comment on above: Performed By: #### 2 07695 ####[facility],[address] [place], [place] [id number] Specimen Type R Normal [facility] Comment on above: Performed By: #### 2 47624 ####[facility],[address] [place] [address]76 Urinalysis dipstick W Reflex Microscopic panel (U) SEE BELOW Normal [facility] Comment on above: Result Comment: MICR OSCOPIC Performed By: #### 2 51878 ####[facility],[address] [place] [address]006 Urobilinog NORM Normal NORMAL: NORMAL [facility] Comment on above: Performed By: #### 2 20694 ####[facility],[address] [place] [address]20 Wbc 6-10 Normal 0-5/hpf [facility] Comment on above: Performed By: #### 2 52016 ####[facility],[address] [place] [address] 38948 Yeast NONE Normal [facility] Comment on above: Performed By: #### 2 89883 ####[facility],[address] [place] [address] CNOVon 11-04-2024 CNOV Office Visit (UCTR ) -------- SALLY VARGAS ([id number]) 1980 F Date Time Provider Department 11/04/24 6:15 PM MARCELINO BESS [facility] During your visit today, we recorded the following information about you: Temperature Pulse Respiration Blood pressure 98.8 degrees 89/minute 20/minute 111/74 Weight 94 kg Marcelino Bess APRN.[employer] 11/04/2024 6:48 PM Signed Subjective HPI Nontoxic-appearing [...] Benign liver cyst 05/24/2010 CT scan at [facility] 11/2009 and 04/2010 showe 4 mm increase in size. No pain. No elevated LFTs on 03/11/2010. Calculus of kidney 05/17/[address] Nicolas: Hospitalized age 20, and again later -- no procedures so far ([facility], most, 1995 [facility]) Cancer (HCC) Chronic pain syndrome 06/06/2020 COVID-19 [...] NASAL) 0.65 % nasal spray Use 1 [place] in the nose as needed. gabapentin (NEURONTIN) [...] Maternal Grand (more content not included)... Normal [facility] STREP A MOLECULAR (POC)on Procedural Control Valid [facility] Strep A (POCT) Negative Negative [facility] CNOVon 10-27-2024 CNOV Office Visit (INTMWS ) -------- SALLY VARGAS ([id number]) 1980 F Date Time Provider Department 10/27/24 1:00 PM ROBBIN HERNANDEZ [facility] During your visit today, we recorded the following information about you: Temperature Pulse Respiration Blood pressure 98.9 degrees 80/minute 18/minute 120/78 Weight 94.8 kg Robbin Hernandez MD 10/27/2024 2:06 PM Signed This note was created using NXT-ID. Subjective Patient presents with: Headache Sally Vargas [...] NASAL) 0.65 % nasal spray Use 1 [place] in the nose as needed. cefdinir (OMNICEF) [...] deficit present. (more content not included)... Normal [facility] CNOVon 10-18-2024 CNOV Office Visit (INTMWS ) -------- SALLY VARGAS ([id number]) 1980 F Date Time Provider Department 10/18/24 11:00 AM SILVERIO HALEY [facility] During your visit today, we recorded the following information about you: Temperature Pulse Blood pressure Weight 98.8 degrees 79/minute 118/78 97.2 kg Silverio Haley MD 10/18/2024 12:27 PM Signed This note was created using NoteWriter. Subjective Sally Vargas is a 44 year [...] Benign liver cyst 05/24/2010 CT scan at [facility] 11/2009 and 04/2010 showe 4 mm increase in size. No pain. No elevated LFTs on 03/11/2010. Calculus of kidney 05/17/[address] Nicolas: Hospitalized age 20, and again later -- no procedures so far ([facility], most, 1996 [facility]) Cancer (HCC) COVID-19 virus infection 10/07/202109/2021 Diverticulosis [...] every 8 hours as needed for nausea/vomiting. zpugib-wbkjmqcr-qxqqyfd (CREON 3) 3,000-9,500- 15,000 unit delayed release [...] 10/03/2024) fluticasone-salmete (more content not included)... Normal [facility] CNOVon 10-17-2024 CNOV Office Visit (UCWSTR ) -------- SALLY VARGAS ([id number]) 1980 F Date Time Provider Department 10/17/24 11:00 AM MINI DUENAS [facility] During your visit today, we recorded the following information about you: Temperature Pulse Respiration Blood pressure 97.6 degrees 90/minute 16/minute 124/78 Weight 93.4 kg Mini Duenas APRN.[facility] 10/17/2024 11:08 AM Signed EAR INFECTION, MIDDLE [...] of the face muscles. Dizziness Mini Duenas APRN.[employer] 10/17/2024 11:14 AM Signed [facility] NOTE Subjective Sally Vargas is a 44 year old year old who presents to [facility] care today with complaint of cough [...] LORazepam (AT (more content not included)... Normal [facility] CNPNon 10-17-2024 [facility] -------- SALLY VARGAS ([id number]) 1980 F Date Time Provider Department 10/17/24 SILVERIO HALEY [facility] During your visit today, we recorded the following information about you: Ivanna Torre RN 10/17/2024 10:19 AM Signed Patient calls to schedule an appointment to follow up on sore throat and sinus congestion. Patient declines all available appointments within [facility]. Patient to go to for evaluation. Ivanna Torre RN Allergies As [...] 8 hours as needed for nausea/vomiting. - ystnav-bwoeyzrf-fincpmm (CREON 3) 3,000-9,500- 15,000 unit delayed release [...] 06/25/2021 CO (more content not included)... Normal [facility] CNOVon 10-13-2024 CNOV Office Visit (UCWSTR ) -------- SALLY VARGAS ([id number]) 1980 F Date Time Provider Department 10/13/24 10:45 AM MAUREEN BARRAGAN [facility] During your visit today, we [...] every 8 hours as needed for nausea/vomiting. fwwvsa-yhjgsbrh-brrzmns (CREON 3) 3,000-9,500- 15,000 unit delayed release [...] (SALICYLATES) 01/28/20 (more content not included)... Normal [facility] STREP A MOLECULAR (POC)on Procedural Control Valid [facility] Strep A (POCT) Negative Negative [facility] Abdomen/Pelvis W IV Cont ONL Yon 10-04-2024 Abdomen/Pelvis W IV Cont ONLY [facility] Imaging Services [address] [facility] [place], [place] [address] Abdomen/Pelvis W IV Cont ONLY MR#: [id number] Acct: [id number] Name: SALLY VARGAS Rep #: [id number] : 1980 F 44 From: Marcelino Ahmadi MD PCP: Dr. Silverio Haley MD Status: REG ER Study: Abdomen/Pelvis W IV Cont ONLY Date of Exam: Exam# [id number] Ordering Dr: Chance Botello DO [id number] STUDY: CT ABDOMEN AND PELVIS WITH CONTRAST REASON FOR EXAM: Female, 44 years old. epigastric pain, flank pain left, uterine cancer, cholecystectomy, hysterectomy. RADIATION DOSAGE (If Supplied By Facility): CTDIvol = ( 19.41 ) mGy, DLP = ( 1212.5 ) mGycm TECHNIQUE: Transaxial images were obtained from the dome of the diaphragm to the symphysis pubis without oral contrast. IV 100mL Isovue-370 was administered. Sagittal and coronal images were reconstructed. Individualized dose optimization techniques were used for this CT. COMPARISON: June 13, 2024 FINDINGS: There is minor atelectasis within the dependent portion of both lower lobes. The visualized portions of the heart are within normal limits. No coronary artery calcification observed Nonspecific fatty infiltrated liver with multiple cysts. Bile ducts are not dilated. Gallbladder has been removed surgically. Normal spleen. Normal pancreas. Normal bilateral adrenal glands. Normal right kidney. There are tiny nonobstructing left renal calculi. Normal visualized stomach. Normal small intestine. Normal colon. No evidence for acute appendicitis Normal abdominal aorta. Normal inferior vena cava. Normal retroperitoneum. Diffuse nonspecific bladder distention Uterus not visualized status post hysterectomy Normal abdominal wall. Lumbar spine demonstrates mild spondylosis. CT/Abdomen/Pelvis W IV Cont ONLY IMPRESSION: Multiple hepatic cysts Left nephrolithiasis without evidence for hydronephrosis or ureteral calculus at this time. Diffuse nonspecific bladder distention. Electronically Signed: Marcelino Ahmadi MD at 19:52 EST Reading Location ID and State: [address] [place] [address] Tel , Service support , CC: Dr. Silverio Haley MD; Dr. Chance Botello DO [employer] Supervisor: Signed Normal [facility] Absolute neutrophil countOrd ered By: Chance Botello on 10-04-2024 Neutrophils (Bld) [#/Vol] 3.6 10*3/uL 2.0-7.7 [facility] Albumin to globulin ratioOrd ered By: Chance Botello on 10-04-2024 Albumin/Globulin [Mass ratio] 0.9 {ratio} 0.9-2.4 [facility] Bacteria LM.HPF (Urine sed) [#/Area]Ordered By: Chance Botello on 10-04-2024 Urine Bacteria RARE /hpf None Seen [facility] Basophil percentageOrdered B y: Chance Botello on 10-04-2024 Basophils/100 WBC (Bld) 0.9 % 0-1 [facility] Bil[facility] Test strip Ql (U)O rdered By: Chance Botello on 10-04-2024 Bilirubin Ql (U) Negative Negative [facility] Bilirubin, totalOrdered By: Chance Botello on 10-04-2024 Bilirubin [Mass/Vol] 0.40 mg/dL 0.20-1.00 [facility] Comment on above: For patients on eltr ombopag therapy, use of Dimension Lutz TBIL is not recommended. Blood urea nitrogen (BUN)/cr eatinine ratioOrdered By: Chance Botello on 10-04-2024 Urea nitrogen/Creatinine [Mass ratio] 14.7 mg/mg 07-03 [facility] CBC W/Diff, Automatedon 09-15 Absolute Lymph 3.27 X10 3/uL Normal 0.83-4.51 [facility] Comment on above: Performed By: #### P H.PYLORI #### [facility] [address] [place], [address] Absolute Neut 3.6 X10 3/uL Normal 2.0-7.7 [facility] Comment on above: Performed By: #### P H.PYLORI #### [facility] [address] [place], [address] Basophils/100 WBC (Bld) 0.9 % Normal 0-1 [facility] Comment on above: Performed By: #### P H.PYLORI #### [facility] [address] [place], [address] Eosinophils/100 WBC (Bld) 3.2 % Normal 0-5 [facility] Comment on above: Performed By: #### P H.PYLORI #### [facility] [address] [place], [address] Erythrocyte distribution width (RBC) [Ratio] 13.0 % Normal 11.6-14.6 [facility] Comment on above: Performed By: #### P H.PYLORI #### [facility] [address] [place], [address] Hematocrit (Bld) [Volume fraction] 39.4 % Normal 37-47 [facility] Comment on above: Performed By: #### P H.PYLORI #### [facility] [address] [place], [address] Hemoglobin (Bld) [Mass/Vol] 12.9 g/dL Normal 12.0-15.0 [facility] Comment on above: Performed By: #### P H.PYLORI #### [facility] [address] [place], [address] IG% 1.700 High 0.0-0.9 [facility] Comment on above: Result Comment: IG% - Immature Granulocytes (promyelocytes, myelocytes and metamyelocytes) > 1% indicates that a LEFT SHIFT is Present. Performed By: #### P H.PYLORI #### [facility] [address] [place], [address] Lymphocytes/100 WBC (Bld) 41.6 % High 19-41 [facility] Comment on above: Performed By: #### P H.PYLORI #### [facility] [address] [place], [address] MCH (RBC) [Entitic mass] 29.9 pg Normal 27.0-32.0 [facility] Comment on above: Performed By: #### P H.PYLORI #### [facility] [address] [place], [address] MCHC (RBC) [Mass/Vol] 32.7 g/dL Normal 32-36 [facility] Comment on above: Performed By: #### P H.PYLORI #### [facility] [address] [place], [address] MCV (RBC) [Entitic vol] 91.2 fL Normal 81-99 [facility] Comment on above: Performed By: #### P H.PYLORI #### [facility] [address] [place], [address] Monocytes/100 WBC (Bld) 6.9 % Normal 0-10 [facility] Comment on above: Performed By: #### P H.PYLORI #### [facility] [address] [place], [address] Neutrophils/100 WBC (Bld) 45.7 % Low 47-70 [facility] Comment on above: Performed By: #### P H.PYLORI #### [facility] [address] [place], [address] Nucleated RBC (Bld) [#/Vol] 0 10*3/uL Normal 0-5 [facility] Comment on above: Performed By: #### P H.PYLORI #### [facility] [address] [place], [address] Platelet mean volume (Bld) [Entitic vol] 10.4 fL Normal 6.2-12.0 [facility] Comment on above: Performed By: #### P H.PYLORI #### [facility] [address] [place], [address] Platelets (Bld) [#/Vol] 250 10*3/uL Normal 150-450 [facility] Comment on above: Performed By: #### P H.PYLORI #### [facility] [address] [place], [address] RBC (Bld) [#/Vol] 4.32 10*6/uL Normal 4.2-5.4 [facility] Comment on above: Performed By: #### P H.PYLORI #### [facility] [address] [place], [address] RDW SD 43.3 fl Normal 35.1-43.9 [facility] Comment on above: Performed By: #### P H.PYLORI #### [facility] [address] [place], [address] WBC (Bld) [#/Vol] 7.9 10*3/uL Normal 4.4-11.0 [facility] Comment on above: Performed By: #### P H.PYLORI #### [facility] [address] [place], [place], [id number] Carbon dioxide measurementOr dered By: Chance Botello on 10-04-2024 CO2 [Moles/Vol] 31.0 mmol/L 21.0-32.0 [facility] Chloride measurementOrdered By: Chance Botello on 10-04-2024 Chloride [Moles/Vol] 105 mmol/L 98-107 [facility] Comprehensive Metabolic Prof ilon 10-04-2024 Albumin [Mass/Vol] 3.7 g/dL Normal 3.2-5.0 [facility] Comment on above: Performed By: #### P H.PYLORI #### [facility] [address] [place], [place], [address] Albumin/Globulin [Mass ratio] 0.9 {ratio} Normal 0.9-2.4 [facility] Comment on above: Performed By: #### P H.PYLORI #### [facility] [address] [place], [address] ALK P 140 U/L High 45-117 [facility] Comment on above: Performed By: #### P H.PYLORI #### [facility] [address] [place], [place], [address] ALT [Catalytic activity/Vol] 22 U/L Normal 13-56 [facility] Comment on above: Performed By: #### P H.PYLORI #### [facility] [address] [place], [address] AST [Catalytic activity/Vol] 9 U/L Low 15-37 [facility] Comment on above: Performed By: #### P H.PYLORI #### [facility] [address] [place], [address] Bilirubin [Mass/Vol] 0.40 mg/dL Normal 0.20-1.00 [facility] Comment on above: Result Comment: For patients on eltrombopag therapy, use of Dimension Lutz TBIL is not recommended. Performed By: #### P H.PYLORI #### [facility] [address] [place], [address] BUN/CRE 14.7 RATIO Normal 10-20 [facility] Comment on above: Performed By: #### P H.PYLORI #### [facility] [address] [place], [address] CA,Total 9.2 mg/dL Normal 8.5-10.1 [facility] Comment on above: Performed By: #### P H.PYLORI #### [facility] [address] [place], [address] Chloride [Moles/Vol] 105 mmol/L Normal 98-107 [facility] Comment on above: Performed By: #### P H.PYLORI #### [facility] [address] [place], [address] CO2 [Moles/Vol] 31.0 mmol/L Normal 21.0-32.0 [facility] Comment on above: Performed By: #### P H.PYLORI #### [facility] [address] [place], [address] Creatinine [Mass/Vol] 1.02 mg/dL Normal 0.55-1.02 [facility] Comment on above: Result Comment: The validity of the calculated GFR GFRAA in patients over 70 years has not been determined. Clinical correlation is essential. Performed By: #### P H.PYLORI #### [facility] [address] [place], [address] ECRCL 72.53 ml/min Normal [facility] Comment on above: Performed By: #### P H.PYLORI #### [facility] [address] [place], [address] EST GFR - AA 75 mL/min Normal >60 [facility] Comment on above: Result Comment: Afri can Samoan GFR Calc Performed By: #### P H.PYLORI #### [facility] [address] [place], [address] GAP 2 Low 5-15 [facility] Comment on above: Performed By: #### P H.PYLORI #### [facility] [address] [place], [address] GFR/1.73 sq M.predicted among non-blacks MDRD (S/P/Bld) [Vol rate/Area] 62 mL/min/{1.73_m2} Normal >60 [facility] Comment on above: Result Comment: Non- GFR Calc Performed By: #### P H.PYLORI #### [facility] [address] [place], [address] Globulin (S) [Mass/Vol] 3.9 g/dL Normal 2.2-4.2 [facility] Comment on above: Performed By: #### P H.PYLORI #### [facility] [address] [place], [address] Glucose [Mass/Vol] 100 mg/dL Normal 74-106 [facility] Comment on above: Result Comment: Fast ing Glucose result from 100 to 125 mg/dL suggests IMPAIRED HOMEOSTASIS per A.D.A. criteria. Performed By: #### P H.PYLORI #### [facility] [address] [place], [address] Potassium [Moles/Vol] 4.2 mmol/L Normal 3.5-5.1 [facility] Comment on above: Performed By: #### P H.PYLORI #### [facility] [address] [place], [address] Sodium [Moles/Vol] 138 mmol/L Normal 136-145 [facility] Comment on above: Performed By: #### P H.PYLORI #### [facility] [address] [place], [place], [address] T PROT 7.6 g/dL Normal 6.4-8.2 [facility] Comment on above: Performed By: #### P H.PYLORI #### [facility] [address] [place], [address] Urea nitrogen [Mass/Vol] 15 mg/dL Normal 7-18 [facility] Comment on above: Performed By: #### P H.PYLORI #### [facility] [address] [place], [place], [address] Emergency Department Summary on 10-04-2024 Emergency Department Summary [facility] Medical Records Department [address] [place] [address] Emergency Department Summary 10/04/24 MR#: [id number] Acct: [id number] Name: SALLY VARGAS Rep #: [id number] : 1980 44 From: Chance Botello DO PCP: Dr. Silverio Haley MD Status:REG ER Location: ED HPI History of Present Illness Chief Complaint: Abd Pain Narrative Narrative: Patient is a 44-year-old female with a past medical history of pancreatitis, nephrolithiasis, bipolar disorder, migraine headaches, tubo-ovarian mass status post hysterectomy and bilateral oophorectomy who presents to the emergency department with a chief complaint of abdominal pain nausea vomiting. Patient states that she follows with Dr. Rose for her pancreatitis and states that she attempted to call his office several times today and no one was returning her phone calls. States that she had pain associated with this and came here for the valuation management. Patient states that she does have a history of kidney stones but states that this does not feel like a kidney stone. She does not have any urinary symptoms. [facility] Medical History Cancer Depression Rheumatoid arthritis [...] hydronephrosis History of renal calculi Home Medications ???Medication ???Instructions ???Recorded ???Last Taken ???Type gabapentin 400 mg capsule 400 mg PO TID PRN NEUROPATHY 10/03/20 12/02/23 History aripiprazole 10 mg tablet 10 mg PO DAILY DEPRESSION 10/25/23 12/02/23 History lorazepam 0.5 mg tablet 0.5 mg PO DAILY PRN ANXIETY #7 01/26/24 Unknown Rx tabs mesalamine 1.2 gram tablet,delayed 2.4 g (2 x 1.2 gram) PO DAILY 30 02/09/24 Unknown Rx release days #60 tabs trazodone 50 mg tablet 50 mg PO QHS 02/23/24 Unknown History hyoscyamine sulfate 0.125 mg 0.125 mg PO Q6H PRN abdominal 02/24/24 Unknown Rx disintegrating tablet discomfort #10 tabs diphenhydramine HCl 25 mg capsule 25 mg PO QHS 05/25/24 Unknown History (Allergy (diphenhydramine)) escitalopram oxalate 20 mg tablet 20 mg PO DAILY 05/25/24 Unknown History pantoprazole 40 mg tablet,delayed 40 mg PO DAILY 05/25/24 Unknown History release promethazine 25 mg tablet 25 mg PO Q8H PRN PRN 05/25/24 Unknown History nausea/vomiting ciprofloxacin HCl 500 mg tablet 500 mg PO BID 5 days #10 TABLETS 06/13/24 Unknown Rx cyclobenzaprine 10 mg tablet 10 mg PO TID PRN Muscle Spasm #15 08/21/24 Unknown Rx TABLETS hyoscyamine sulfate 0.125 mg 0.125 mg PO Q6H 4 days #16 tabs 10/04/24 Unknown Rx tablet (Levsin) ondansetron 4 mg disintegrating 4 mg PO Q6H PRN nausea and 10/04/24 Unknown Rx tablet vomiting #20 tabs Allergy/AdvReac Type Severity Reaction Status Date / Time Iodinated Contrast Media (CT) Allergy Shortness Verified 10/04/24 17:59 of breath ketorolac tromethamine (From Allergy Rash Verified 10/04/24 16:52 Toradol) metronidazole (From Flagyl) Allergy Hives Verified 10/04/24 16:52 Penicillins Allergy Hives Verified 10/04/24 16:52 dicyclomine (From Bentyl) AdvReac Mild Hives Verified 10/04/24 16:52 aspirin AdvReac Upset Verified 10/04/24 16:52 Stomach Family History Aunt Breast cancer Grandfather [...] ROS ROS ED ROS Narrative Constitutional: Denies any fevers, chills, headaches, lightness, dizziness Eyes: Denies change in vision double vision blurry vision Cardiovascular: Denies chest pain Respiratory: Denies shortness of breath Abdomen: Complains of abdominal pain as noted above and nausea vomiting as well as diarrhea : Denies any urinary symptoms Neurological: Denies numbness, we (more content not included)... Normal [facility] Eosinophil percentageOrdered By: Chance Botello on 10-04-2024 Eosinophils/100 WBC (Bld) 3.2 % 0-5 [facility] Epithelial cells.squamous LM Ql (Urine sed)Ordered By: Chance Botello on 10-04-2024 Epithelial cells.squamous LM.HPF (Urine sed) [#/Area] 5 /[HPF] 5-10 [facility] Erythrocyte distribution wid th ratioOrdered By: Chance Botello on 10-04-2024 Erythrocyte distribution width (RBC) [Ratio] 13.0 % 11.6-14.6 [facility] Erythrocyte distribution wid th standard deviationOrdered By: Chance Botello on 10-04-2024 Erythrocyte distribution width (RBC) [Entitic vol] 43.3 fL 35.1-43.9 [facility] Estimated glomerular filtrat ion rate (GFR) AmericanOrdered By: Chance Botello on 10-04-2024 Estimated GFR (MDRD) Amer 75 mL/min >60 [facility] Comment on above: GFR Calc Estimation of creatinine linda aranceOrdered By: Chance Botello on 10-04-2024 Estimated Creatinine Clearance Calc 72.53 ml/min [facility] Glomerular filtration rate ( GFR) estimationOrdered By: Chance Botello on 10-04-2024 Estimated GFR (MDRD) Non-Af Amer 62 mL/min >60 [facility] Comment on above: Non- GFR Calc Glucose Ql (U)Ordered By: Jose Botello on 10-04-2024 Urine Glucose (UA) Normal mg/dl Normal [facility] Glucose measurementOrdered B y: Chance Botello on 10-04-2024 Glucose [Mass/Vol] 100 mg/dL 74-106 [facility] Comment on above: Fasting Glucose resu lt from 100 to 125 mg/dL suggests IMPAIRED HOMEOSTASIS per A.D.A. criteria. Hematocrit Auto (Bld) [Volum e fraction]Ordered By: Chance Botello on 10-04-2024 Hematocrit (Bld) [Volume fraction] 39.4 % 37-47 [facility] Hemoglobin measurementOrdere d By: Chance Botello on 10-04-2024 Hemoglobin (Bld) [Mass/Vol] 12.9 g/dL 12.0-15.0 [facility] Immature granulocytes/100 WB C Auto (Bld)Ordered By: Chance Botello on 10-04-2024 Immature granulocytes/100 WBC (Bld) 1.700 % High 0.0-0.9 [facility] Comment on above: IG% - Immature Granu locytes (promyelocytes, myelocytes and metamyelocytes) > 1% indicates that a LEFT SHIFT is Present. Influenza virus A and B and SARS-CoV-2 (COVID-19) and Respiratory syncytial virus RNAOrdered By: Chance Botello on 10-04-2024 SARS-CoV-2 (COVID-19) RNA ABRAM+probe Ql (Unsp spec) [facility] SARS-CoV-2 (COVID-19) RNA ABRAM+probe Ql (Unsp spec) [facility] Ketones Test strip Ql (U)Ord ered By: Chance Botello on 10-04-2024 Ketones Ql (U) Negative Negative [facility] - Chemistry and C hemistry - challengeOrdered By: Chance Botello on 10-04-2024 AST [Catalytic activity/Vol] 9 U/L Low 15-37 [facility] Lipaseon 10-04-2024 Lipase [Catalytic activity/Vol] 43 U/L Normal 13-75 [facility] Comment on above: Result Comment: Plehanna mortensen note: LIPASE revised reference range effective 22. New Lipase methodology. Expected to produce lower values than the previous assay method. NEW Reference Range: 13 - 75 U/L Performed By: #### P H.PYLORI #### [facility] [address] [place], [address] Lipase measurementOrdered By : Chance Botello on 10-04-2024 Lipase [Catalytic activity/Vol] 43 U/L 13-75 [facility] Comment on above: Please note:LIPASE r evised reference range effective 22. New Lipase methodology. Expected to produce lower values than the previous assay method. NEW Reference Range: 13 - 75 U/L Lymphocytes Auto (Unsp spec) [#/Vol]Ordered By: Chance Botello on 10-04-2024 Lymphocytes (Bld) [#/Vol] 3.27 10*3/uL 0.83-4.51 [facility] Lymphocytes/100 WBC Auto (Un sp spec)Ordered By: Chance Botello on 10-04-2024 Lymphocytes/100 WBC (Bld) 41.6 % High 19-41 [facility] M100.678on 10-04-2024 M100.678 Pending SARS-CoV-2 (COVID 19) Negative INFLUENZA A Negative INFLUENZA B Negative RSV PCR Negative Normal [facility] Comment on above: Performed By: #### M 100.678, L400.0001 #### [facility] [address] [place], [address] MCV (mean corpuscular volume ) determinationOrdered By: Chance Botello on 10-04-2024 MCV (RBC) [Entitic vol] 91.2 fL 81-99 [facility] Mean corpuscular hemoglobin (MCH) determinationOrdered By: Chance Botello on 10-04-2024 MCH (RBC) [Entitic mass] 29.9 pg 27.0-32.0 [facility] Mean corpuscular hemoglobin concentration (MCHC) determinationOrdered By: Chance Botello on 10-04-2024 MCHC (RBC) [Mass/Vol] 32.7 g/dL 32-36 [facility] Mean platelet volume determi nationOrdered By: Chance Botello on 10-04-2024 Platelet mean volume (Bld) [Entitic vol] 10.4 fL 6.2-12.0 [facility] Microscopic analysis of urin e for red blood cells (RBC)Ordered By: Chance Botello on 10-04-2024 Urine RBC 0 SEEN /hpf 0-5 [facility] Monocyte percentageOrdered B y: Chance Botello on 10-04-2024 Monocytes/100 WBC (Bld) 6.9 % 0-10 [facility] Mucus LM Ql (Urine sed)Order ed By: Chance Botello on 10-04-2024 Mucus Ql (Urine sed) 0 SEEN /hpf [facility] Neutrophil percentageOrdered By: Chance Botello on 10-04-2024 Neutrophils/100 WBC (Bld) 45.7 % Low 47-70 [facility] Nitrite Test strip Ql (U)Ord ered By: Chance Botello on 10-04-2024 Nitrite Ql (U) Negative Negative [facility] Nucleated red blood cell per centageOrdered By: Chance Botello on 10-04-2024 Nucleated RBC/100 WBC (Bld) [Ratio] 0 % 0-5 [facility] Platelet countOrdered By: Jose Botello on 10-04-2024 Platelets (Bld) [#/Vol] 250 10*3/uL 150-450 [facility] Potassium measurementOrdered By: Chance Botello on 10-04-2024 Potassium [Moles/Vol] 4.2 mmol/L 3.5-5.1 [facility] Protein Test strip Ql (U)Ord ered By: Chance Botello on 10-04-2024 Protein Ql (U) Negative Negative [facility] RBC Auto (Bld) [#/Vol]Ordere d By: Chance Botello on 10-04-2024 RBC (Bld) [#/Vol] 4.32 10*6/uL 4.2-5.4 [facility] Serum anion gap measurementO rdered By: Chance Botello on 10-04-2024 Anion gap [Moles/Vol] 2 mmol/L Low 5-15 [facility] Serum globulin measurementOr dered By: Chance Botello on 10-04-2024 Globulin (S) [Mass/Vol] 3.9 g/dL 2.2-4.2 [facility] Serum or plasma alanine umanzor otransferase (ALT) measurementOrdered By: Chance Botello on 10-04-2024 ALT [Catalytic activity/Vol] 22 U/L 13-56 [facility] Serum or plasma albumin shelley urement (mass/volume)Ordered By: Chance Botello on 10-04-2024 Albumin [Mass/Vol] 3.7 g/dL 3.2-5.0 [facility] Serum or plasma alkaline omero sphatase measurementOrdered By: Chance Botello on 10-04-2024 ALP [Catalytic activity/Vol] 140 U/L High 45-117 [facility] Serum or plasma calcium shelley urement (mass/volume)Ordered By: Chance Botello on 10-04-2024 Calcium [Mass/Vol] 9.2 mg/dL 8.5-10.1 [facility] Serum or plasma creatinine m easurement (mass/volume)Ordered By: Chance Botello on 10-04-2024 Creatinine [Mass/Vol] 1.02 mg/dL 0.55-1.02 [facility] Comment on above: The validity of the calculated GFR & GFRAA in patients over 70 years has not been determined. Clinical correlation is essential. Serum or plasma urea nitroge n measurement (mass/volume)Ordered By: Chacne Botello on 10-04-2024 Urea nitrogen [Mass/Vol] 15 mg/dL 7-18 [facility] Sodium levelOrdered By: Vivi Botello on 10-04-2024 Sodium [Moles/Vol] 138 mmol/L 136-145 [facility] Total proteinOrdered By: Johnathon Botello on 10-04-2024 Protein [Mass/Vol] 7.6 g/dL 6.4-8.2 [facility] Urinalysis, Completeon 10-04 BACTERIA RARE Normal None Seen [facility] Comment on above: Order Comment: CLEAN CATCH Performed By: #### M 100.678, L400.0001 #### [facility] [address] [place], [address] EPI,SQUAMOUS 5-10 SEEN Normal 5-10 [facility] Comment on above: Order Comment: CLEAN CATCH Performed By: #### M 100.678, L400.0001 #### [facility] [address] [place], [address] WBC 0-5 SEEN Normal 0-5 [facility] Comment on above: Order Comment: CLEAN CATCH Performed By: #### M 100.678, L400.0001 #### [facility] [address] [place], [address] Mucus Ql (Urine sed) 0 SEEN Normal [facility] Comment on above: Order Comment: CLEAN CATCH Performed By: #### M 100.678, L400.0001 #### [facility] [address] [place], [address] RBC 0 SEEN Normal 0-5 [facility] Comment on above: Order Comment: CLEAN CATCH Performed By: #### M 100.678, L400.0001 #### [facility] [address] [place], [address] Urine blood detectionOrdered By: Chance Botello on 10-04-2024 Urine Occult Blood Negative Negative [facility] Urine clarityOrdered By: Johnathon Botello on 10-04-2024 Clarity (U) Clear Clear [facility] Urine color determinationOrd ered By: Chance Botello on 10-04-2024 Color (U) Yellow Yellow [facility] Urine leukocyte esterase det ection by dipstickOrdered By: Chance Botello on 10-04-2024 Leukocyte esterase Test strip Ql (U) Negative Negative [facility] Urine pHOrdered By: Chance carrillo on 10-04-2024 pH (U) 6.5 [pH] 5.0 - 8.0 [facility] Urine specific gravity measu rementOrdered By: Chance Botello on 10-04-2024 Specific gravity (U) [Rel density] 1.005 1.002-1.030 [facility] Urobilinogen Ql (U)Ordered B y: Chance Botello on 10-04-2024 Urine Urobilinogen Normal mg/dl Normal [facility] White blood cell (WBC) count Ordered By: Chance Botello on 10-04-2024 WBC (Bld) [#/Vol] 7.9 10*3/uL 4.4-11.0 [facility] White blood cell countOrdere d By: Chance Botello on 10-04-2024 Urine WBC 0-5 SEEN /hpf 0-5 [facility] CNOVon 10-03-2024 CNOV Office Visit (INTMWS ) -------- TOSHIASALLY TORRES ([id number]) 1980 F Date Time Provider Department 10/03/24 10:00 AM SILVERIO HALEY INTMWS During your visit today, we recorded the following information about you: Temperature Pulse Respiration Blood pressure 98.6 degrees 64/minute 16/minute 118/74 Weight 92.3 kg Silverio Haley MD 10/03/2024 11:01 AM Signed This note was created using NoteWriter. Subjective Sally Vargas is a 44 year old female. Patient presents with: ED Follow-up: [facility] ED follow up 09/24/2024 for left [...] July. She has not yet seen a telecommunications cable jointer for asthma follow-up. Additionally, Sally reports severe [...] Benign liver cyst 05/24/2010 CT scan at [facility] 11/2009 and 04/2010 showe 4 mm increase in size. No pain. No elevated LFTs on 03/11/2010. Calculus of kidney 05/17/[address] Nicolas: Hospitalized age 20, and again later -- no procedures so far ([facility], [facility], 1995 [facility]) Cancer (HCC) COVID-19 virus infection 10/07/202109/2021 Diverticulosis [...] every 8 hours as needed for nausea/vomiting. kqiqib-djqhbuqt-zkrqcgb (CREON 3) 3,000-9,500- 15,000 unit delayed release [...] a day (more content not included)... Normal [facility] ED MED ADMINISTRATION DETAIL on 09-29-2024 ED MED ADMINISTRATION DETAIL Normal [facility] ED NURSES CLINICAL NOTEon ED NURSES CLINICAL NOTE Normal [facility] ED ORDER SHEET (CPOE ONLY)on 09-29-2024 ED ORDER SHEET (CPOE ONLY) Normal [facility] ED PHYSICIAN CLINICAL REPORT on 09-29-2024 ED PHYSICIAN CLINICAL REPORT Normal [facility] ED PHYSICIAN DISCHARGE REPOR Ton 09-29-2024 ED PHYSICIAN DISCHARGE REPORT Normal [facility] ED SUPER BILLon 09-29-2024 ED SUPER BILL Normal [facility] ED VISIT SUMMARYon ED VISIT SUMMARY Normal [facility] ED VITALS FLOW SHEETon 09-29 ED VITALS FLOW SHEET Normal [facility] .Auto Diffon 09-24-2024 Basophil, Absolute 0.1 10 3/mcL Normal 0.0-0.2 [facility] Comment on above: Performed By: #### U A UAMICAO #### [address] [address] Basophils/100 WBC (Bld) 2.0 % Normal 0.0-2.5 [facility] Comment on above: Performed By: #### U Hanna UAMICAO #### [address] [address] Eosinophil, Absolute 0.2 10 3/mcL Normal 0.0-0.[address] [facility] Comment on above: Performed By: #### U A UAMICAO #### [address] [address] Eosinophils/100 WBC (Bld) 2.3 % Normal 0.0-7.0 [facility] Comment on above: Performed By: #### U A UAMICAO #### [address] [address] Lymphocyte, Absolute 2.8 10 3/mcL Normal 0.9-4.[address] [facility] Comment on above: Performed By: #### U A UAMICAO #### [address] [address] Lymphocytes/100 WBC (Bld) 38.4 % Normal 20.0-40.0 [facility] Comment on above: Performed By: #### U A UAMICAO #### [address] [address] Monocyte, Absolute 0.5 10 3/mcL Normal 0.1-1.4 [facility] Comment on above: Performed By: #### U A UAMICAO #### [address] [address] Monocytes/100 WBC (Bld) 6.9 % Normal 2.0-13.0 [facility] Comment on above: Performed By: #### U Hanna UAMICAO #### [address] [address] Neutrophils/100 WBC (Bld) 50.4 % Normal 50.0-75.0 [facility] Comment on above: Performed By: #### Sandrine Ferreira UAMICAO #### [address] [address] .GFRon 09-24-2024 GFR 75 ml/min/1.73sqm Normal [facility] Comment on above: Result Comment: GFR [...] mL/min/1.73 square meters Performed By: #### U A UAMICAO #### [address] [address] GFR Non- 62 ml/min/1.73sqm Normal [facility] Comment on above: Result Comment: GFR [...] Performed By: #### U A, UAMICAO #### [place] [address] .MDWon 09-24-2024 Monocyte Distribution Width Not performed Normal 0.00-20.00 [facility] Comment on above: Result Comment: MDW testing performed only on adult ER patients between the ages of 18-89 years. Performed By: #### U A, UAMICAO #### [place] [address] .NEUABSon 09-24-2024 Neutrophil, Absolute 3.7 10 3/mcL Normal 2.3-8.[address] [facility] Comment on above: Performed By: #### U A, UAMICAO #### [place] [address] .Urinalysis Microscopic (AO) on 09-24-2024 UA CA Ox Crystal 1+ /hpf Normal [facility] Comment on above: Performed By: #### U A, UAMICAO #### [place] [address] UA RBC 0-5 Abnormal None Seen [facility] Comment on above: Performed By: #### U A, UAMICAO #### [place] [address] UA Squam Epithelial 5-10 Abnormal None Seen [facility] Comment on above: Performed By: #### U A, UAMICAO #### [place] [address] UA WBC 0-5 Abnormal None Seen [facility] Comment on above: Performed By: #### Sandrine Ferreira UAMICAO #### [address] [address] BMPon 09-24-2024 BUN/Creatinine Ratio 13 ratio Normal 7-27 [facility] Comment on above: Performed By: #### Sandrine Ferreira UAMICAO #### [place] [address] Calcium [Mass/Vol] 9.4 mg/dL Normal 8.4-10.2 [facility] Comment on above: Performed By: #### Sandrine Ferreira UAMICAO #### [place] [address] Chloride [Moles/Vol] 101 mmol/L Normal 98-107 [facility] Comment on above: Performed By: #### Sandrine Ferreira UAMICAO #### [place] [address] CO2 [Moles/Vol] 29 mmol/L Normal 22-29 [facility] Comment on above: Performed By: #### Sandrine Ferreira UAMICLENORE #### [place] [address] Creatinine [Mass/Vol] 0.97 mg/dL Normal 0.55-1.02 [facility] Comment on above: Result Comment: Test ing performed on Siemens Dimension EXL analyzer using a modified kinetic Eleuterio technique. Performed By: #### Sandrine Ferreira UAMICAO #### [address] [address] Electrolyte Balance 7.0 mEq/L Normal 4.0-15.0 [facility] Comment on above: Performed By: #### Sandrine Ferreira UAMICAO #### [place] [address] Glucose [Mass/Vol] 91 mg/dL Normal 70-105 [facility] Comment on above: Performed By: #### U Hanna UAMICAO #### [place] [id number] Potassium [Moles/Vol] 4.4 mmol/L Normal 3.5-5.1 [facility] Comment on above: Performed By: #### Sandrine Ferreira UAMICAO #### [address] [address] Sodium [Moles/Vol] 137 mmol/L Normal 136-145 [facility] Comment on above: Performed By: #### Sandrine Ferreira UAMICAO #### [address] [address] Urea nitrogen [Mass/Vol] 13 mg/dL Normal 7-18 [facility] Comment on above: Performed By: #### Sandrine Ferreira UAMICAO #### [address] [address] CBCon 09-24-2024 Erythrocyte distribution width (RBC) [Ratio] 13.9 % Normal 11.5-15.5 [facility] Comment on above: Order Comment: [facility] Performed By: #### Sandrine Ferreira UAMICAO #### [address] [address] Hematocrit (Bld) [Volume fraction] 39.3 % Normal 34.0-46.0 [facility] Comment on above: Order Comment: [facility] Performed By: #### Sandrine Ferreira UAMICAO #### [address] [address] Hgb 13.3 G/dL Normal 12.0-16.0 [facility] Comment on above: Order Comment: [facility] Performed By: #### U Hanna UAMICAO #### [address] [address] MCH (RBC) [Entitic mass] 30.4 pg Normal 27.0-33.0 [facility] Comment on above: Order Comment: [facility] Performed By: #### U Hanna, UAMICAO #### [address] [address] MCHC 33.8 G/dL Normal 32.0-36.0 [facility] Comment on above: Order Comment: [facility] Performed By: #### U Hanna UAMICAO #### [address] [address] MCV (RBC) [Entitic vol] 89.9 fL Normal 80.0-99.0 A [facility] Comment on above: Order Comment: [facility] Performed By: #### Sandrine Ferreira UAMICAO #### [address] [address] Platelet 218 10 3/mcL Normal 150-450 [facility] Comment on above: Order Comment: [facility] Performed By: #### GUSTAVO FloresMICAO #### [address] [address] Platelet mean volume (Bld) [Entitic vol] 8.5 fL Normal 6.6-10.5 [facility] Comment on above: Order Comment: [facility] Performed By: #### GUSTAVO FloresMICAO #### [address] [address] RBC 4.37 10 6/mcL Normal 4.10-5.30 [facility] Comment on above: Order Comment: [facility] Performed By: #### ANN MARIE Floers #### [address] [address] WBC 7.3 10 3/mcL Normal 4.5-10.8 [facility] Comment on above: Order Comment: [facility] Performed By: #### GUSTAVO FloresMICLENORE #### [address] [address] [address] ABDOMEN/PELVIS W/O CONTRA STon 09-24-2024 CT ABDOMEN/PELVIS W/O CONTRAST ORIGINAL EXAMINATION: Exam Title:CT OF THE ABDOMEN AND PELVIS WITHOUT CONTRAST Completed Time: 09/24/2024 11:58 am Procedure Description:CT ABDOMEN/PELVIS WITHOUT CONTRAST COMPARISON: February 04, 2024 CT abdomen pelvis HISTORY: ORDERING SYSTEM PROVIDED HISTORY: Reason for Exam: LEFT flank [id number]^ TECHNIQUE: Noncontrast CT performed according to protocol [...] or pneumoperitoneum. Terminal ileum normal in appearance. Aoyz-mz-dieikucf amount of stool throughout the colon. No enlarged lymph nodes. No free fluid. Hysterectomy. Bladder contour normal. Obese body habitus. Mild discogenic change thoracic spine. No gross acute osseous process. IMPRESSION:[] 1. No acute process demonstrated. 2. Other findings described above. Interpreted by: Mihir Escobar DO Preliminary Report By: Mihir Escobar DO Electronically signed By Mihir Escobar DO Dictated Date: 09/24/2024 12:09:26 PM Prelim Date: 09/24/2024 12:14:21 PM Sign Date: 09/24/2024 12:14:21 PM Ordering Provider: KAREY Guardado [facility]ATORYOrdered By: SYSTEM SYSTEM on 09-24-2024 [...] SS UAon 09-24-2024 Color (U) Yellow Normal [facility] Comment on above: Performed By: #### U A, UAMICAO #### [place] [address] Glucose (U) [Mass/Vol] Negative Normal Negative [facility] Comment on above: Performed By: #### U A, UAMICAO #### [place] [address] Ketones Ql (U) Negative Normal Negative [facility] Comment on above: Performed By: #### U A, UAMICAO #### [place] [address] UA Appear Clear Normal Clear [facility] Comment on above: Performed By: #### U A, UAMICAO #### [place] [address] UA Blood Small Abnormal Negative [facility] Comment on above: Performed By: #### U A, UAMICAO #### [place] [address] UA Leuk Est Negative Normal Negative [facility] Comment on above: Performed By: #### U A, UAMICAO #### [place] [address] UA Nitrite Negative Normal Negative [facility] Comment on above: Performed By: #### U A, UAMICAO #### [place] [address] UA pH 5.5 Normal 5.0 - 8.0 [facility] Comment on above: Performed By: #### U A, UAMICAO #### [place] [address] UA Protein Negative Normal Negative [facility] Comment on above: Performed By: #### U A, UAMICAO #### [place] [address] UA Spec Grav >=1.030 Abnormal 1.015-1.025 [facility] Comment on above: Performed By: #### U A, UAMICAO #### [place] [id number] [place], [place] [address] UA Specimen Type Clean Catch Normal [facility] Comment on above: Performed By: #### U A, UAMICAO #### [place] [address] [place], [place] [address] UA Urobilinogen 0.2 E.U./dL Normal 0.2-1.0 [facility] Comment on above: Performed By: #### U A, UAMICAO #### [place] [id number] [place] [id number] Urobilinogen (U) [Mass/Vol] Negative Normal Negative [facility] Comment on above: Performed By: #### U A, UAMICAO #### [address] [address] CNOVon 09-21-2024 CNOV Office Visit (INTMWS ) -------- SALLY VARGAS ([id number]) 1980 F Date Time Provider Department 09/21/24 10:40 AM JAJA CHAHAL INTMWS During your visit today, we recorded the following information about you: Temperature Pulse Respiration Blood pressure 97.2 degrees 85/minute 16/minute 126/78 Weight 90.8 kg Jaja Chahal, YARD 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 No pain. No elevated LFTs on 03/11/2010. Calculus of kidney 05/17/[address] Nicolas: Hospitalized age 20, and again later -- no procedures so far ([facility], [facility], [facility]) Cancer (HCC) COVID-19 virus infection 10/07/202109/2021 Diverticulosis [...] every 8 hours as needed for nausea/vomiting. qpnqbb-ryhgbyvn-dtydjar (CREON 3) 3,000-9,500- 15,000 unit delayed release [...] Problems Father (more content not included)... [facility]INTMWS[facility] -------- SALLY VARGAS ([id number]) 1980 F Date Time Provider Department 09/21/24 [...] 8 hours as needed for nausea/vomiting. - zegqbm-ddwvxzcq-dntgdgv (CREON 3) 3,000-9,500- 15,000 unit delayed release [...] spine [R93.7] (more content not included)... Normal [facility] CBC + DIFFon 09-14-2024 Baso # 0.01 x10EE3/UL Normal 0.00 - 0.10 [facility] Comment on above: Performed By: #### 2 88329 ####[facility],[address] [place] [address] Basophils/100 WBC (Bld) 0.2 % Normal 0.0 - 2.0 [facility] Comment on above: Performed By: #### 2 21117 ####[facility],[address] [place] [address] CBC + DIFF Normal [facility] Comment on above: Result Comment: CBC- COMPLETE BLOOD COUNT Performed By: #### 2 67254 ####[facility],[address] [place] [address] EO # 0.19 x10EE3/UL Normal 0.00 - 0.50 [facility] Comment on above: Performed By: #### 2 85237 ####[facility],[address] [place], [place] [id number] Eosinophils/100 WBC (Bld) 2.0 % Normal 0.0 - 7.0 [facility] Comment on above: Performed By: #### 2 10121 ####[facility],[address] [place] [address] Erythrocyte distribution width (RBC) [Ratio] 13.0 % Normal 12.0 - 15.6 [facility] Comment on above: Performed By: #### 2 [address] ####[facility],[address] [place] [address] Hematocrit (Bld) [Volume fraction] 39.3 % Normal 34.0 - 46.0 [facility] Comment on above: Performed By: #### 2 [address]1312 ####[facility],[address] [place] [address] Hemoglobin (Bld) [Mass/Vol] 13.5 g/dL Normal 12.0 - 16.0 [facility] Comment on above: Performed By: #### 2 [address] ####[facility],[address] [place] [address] Lymph # 2.88 x10EE3/UL High 0.80 - 2.80 [facility] Comment on above: Performed By: #### 2 [address]53 ####[facility],[address] [place] [address] Lymphocytes/100 WBC (Bld) 30.6 % Normal 20.0 - 45.0 [facility] Comment on above: Performed By: #### 2 62972 ####[facility],[address] [place] [address] MANUAL DIFF N/A Normal [facility] Comment on above: Performed By: #### 2 74810 ####[facility],[address] [place] [address] MCH (RBC) [Entitic mass] 30 pg Normal 27 - 33 [facility] Comment on above: Performed By: #### 2 93701 ####[facility],[address] [place] [address] MCHC 34 X10 3 Normal 32 - 36 [facility] Comment on above: Performed By: #### 2 82351 ####[facility],[address] [place], [place] [id number] MCV (RBC) [Entitic vol] 88 fL Normal 80 - 99 [facility] Comment on above: Performed By: #### 2 41952 ####[facility],[address] [place] [address] Bacon # 0.50 x10EE3/UL Normal 0.20 - 1.00 [facility] Comment on above: Performed By: #### 2 03058 ####[facility],[address] [place] [address] 21501 MONOS % 5.4 % Normal 0.0 - 10.0 [facility] Comment on above: Performed By: #### 2 98809 ####[facility],[address] [place] [address] 54550 Morphology Adrian (Bld) [Interp] N/A Normal [facility] Comment on above: Performed By: #### 2 15292 ####[facility],[address] [place] [address] 15121 Neut # 5.82 x10EE3/UL Normal 1.50 - 7.10 [facility] Comment on above: Performed By: #### 2 40120 ####[facility],[address] [place] [address] 55472 Neutrophils/100 WBC (Bld) 61.9 % Normal 46.0 - 76.0 [facility] Comment on above: Performed By: #### 2 04636 ####[facility],[address] [place] [address] 43583 PLATELET 251 x10EE3/UL Normal 150 - 450 [facility] Comment on above: Performed By: #### 2 48096 ####[facility],[address] [place] [address] 36784 Platelet mean volume (Bld) [Entitic vol] 7.6 fL Normal 6.6 - 10.5 [facility] Comment on above: Result Comment: AUTO MATED DIFFERENTIAL Performed By: #### 2 69327 ####[facility],[address] [place] [address] 47395 RBC 4.45 x 10EE6/UL Normal 4.10 - 5.30 [facility] Comment on above: Performed By: #### 2 23563 ####[facility],[address] [place] [address] 75099 WBC 9.4 x 10EE3/UL Normal 4.5 - 10.8 [facility] Comment on above: Performed By: #### 2 85428 ####[facility],[address] [place] [address] 15663 CMP with eGFRon 09-14-2024 AGE 44 years Normal [facility] Comment on above: Performed By: #### 2 81226 ####[facility],[address] [place] [address] 72919 Albumin [Mass/Vol] 3.8 g/dL Normal 3.4 - 5.0 [facility] Comment on above: Performed By: #### 2 70900 ####[facility],[address] [place] [address] 29809 Albumin/Globulin [Mass ratio] 1.1 {ratio} Normal 0.9 - 1.6 [facility] Comment on above: Performed By: #### 2 42643 ####[facility],[address] [place] [address] 40158 ALK PHOS 138 U/L High 46 - 116 [facility] Comment on above: Performed By: #### 2 47416 ####[facility],[address] [place] [address] 02666 ALT [Catalytic activity/Vol] 29 U/L Normal 16 - 63 [facility] Comment on above: Performed By: #### 2 92257 ####[facility],[address] [place] [address] 80264 Anion gap [Moles/Vol] 13 mmol/L Normal 10 - 20 [facility] Comment on above: Performed By: #### 2 55734 ####[facility],[address] [place] [address] 02991 AST [Catalytic activity/Vol] 16 U/L Normal 13 - 39 [facility] Comment on above: Performed By: #### 2 01222 ####[facility],[address] [place] [address] 86648 B/C RATIO 16 ratio Normal 0 - 30 [facility] Comment on above: Performed By: #### 2 92158 ####[facility],[address] [place] [address] 59364 Bilirubin [Mass/Vol] 0.4 mg/dL Normal 0.2 - 1.0 [facility] Comment on above: Performed By: #### 2 24075 ####[facility],[address] [place] [address] 39406 Calcium [Mass/Vol] 9.0 mg/dL Normal 8.5 - 10.1 [facility] Comment on above: Performed By: #### 2 51328 ####[facility],[address] [place] [address] 83837 Chloride [Moles/Vol] 103 mmol/L Normal 98 - 107 [facility] Comment on above: Performed By: #### 2 21260 ####[facility],[address] [place] [address] 86063 CMP with eGFR Normal [facility] Comment on above: Result Comment: COMP REHENSIVE METABOLIC PANEL Performed By: #### 2 30394 ####[facility],[address] [place] [address] 93989 CO2 [Moles/Vol] 28.4 mmol/L Normal 21.0 - 32.0 [facility] Comment on above: Performed By: #### 2 06349 ####[facility],[address] [place] [address] 35525 Creatinine [Mass/Vol] 0.96 mg/dL Normal 0.55 - 1.02 [facility] Comment on above: Performed By: #### 2 52635 ####[facility],[address] [place] [address] 26906 GFR/1.73 sq M.predicted among non-blacks MDRD (S/P/Bld) [Vol rate/Area] mL/min/{1.73_m2} Normal 60 - 999 [facility] Comment on above: Performed By: #### 2 53577 ####[facility],[address] [place] [address] 68270 Result Comment: ACCO RDING TO THE NATIONAL KIDNEY DISEASE EDUCATION PROGRAM(NKDE), A NORMAL eGFRIS A VALUE GREATER THAN OR EQUAL TO 60 ML/MIN/1.73 SQ METERS.CHRONIC KIDNEY DISEASE: <60mL/MIN/1.73 SQ METERSKIDNEY FAILURE: <15mL/MIN/1.73 SQ METERSTHIS TEST SHOULD ONLY BE USED FOR PATIENTS 18 YEARS OF AGE AND OLDER. Globulin (S) [Mass/Vol] 3.6 g/dL Normal 1.5 - 3.8 [facility] Comment on above: Performed By: #### 2 19077 ####[facility],[address] [place] [address] 27115 Glucose [Mass/Vol] 108 mg/dL High 74 - 106 [facility] Comment on above: Performed By: #### 2 68525 ####[facility],[address] [place] [address] 48995 Potassium [Moles/Vol] 3.7 mmol/L Normal 3.5 - 5.1 [facility] Comment on above: Performed By: #### 2 25662 ####[facility],[address] [place] [address] 06728 Protein [Mass/Vol] 7.4 g/dL Normal 6.4 - 8.2 [facility] Comment on above: Performed By: #### 2 30172 ####[facility],[address] [place] [address] 02147 Sodium [Moles/Vol] 141 mmol/L Normal 136 - 145 [facility] Comment on above: Performed By: #### 2 43195 ####[facility],[address] [place] [address] 02177 Urea nitrogen [Mass/Vol] 15 mg/dL Normal 7 - 18 [facility] Comment on above: Performed By: #### 2 45629 ####[facility],[address] [place] [address] 95897 ED MED ADMINISTRATION DETAIL on 09-14-2024 ED MED ADMINISTRATION DETAIL Normal [facility] ED NURSES CLINICAL NOTEon ED NURSES CLINICAL NOTE Normal [facility] [place] [facility] ED ORDER SHEET (CPOE ONLY)on 09-14-2024 ED ORDER SHEET (CPOE ONLY) Normal [facility] ED PHYSICIAN CLINICAL REPORT on 09-14-2024 ED PHYSICIAN CLINICAL REPORT Normal [facility] ED PHYSICIAN DISCHARGE REPOR Ton 09-14-2024 ED PHYSICIAN DISCHARGE REPORT Normal [facility] ED SUPER BILLon 09-14-2024 ED SUPER BILL Normal [facility] ED VISIT SUMMARYon ED VISIT SUMMARY Normal [facility] ED VITALS FLOW SHEETon 09-14 ED VITALS FLOW SHEET Normal [facility] LIPASEon 09-14-2024 Lipase [Catalytic activity/Vol] 41.0 U/L Normal 15.0 - 78.0 [facility] Comment on above: Result Comment: *PLE ASE NOTE THAT RANGES FOR LIPASE HAVE CHANGED OF 09/11/23 DUE TO AN ASSAYUPDATE BY THE SENIOR ACCOUNTING CLERK.THE NEW ASSAY RANGE IS 6-250 U/L, WITH A REFERENCERANGE OF 16-77 U/L. Performed By: #### 2 21458 ####[facility],[address] [place] [address] URINALYSISon 09-14-2024 Amorphous NONE Normal [facility] Comment on above: Performed By: #### 2 30539 ####[facility],[address] [place] [address] Bacteria 1+ Normal [facility] Comment on above: Performed By: #### 2 80967 ####[facility],[address] [place] [address] Bilirubin Ql (U) Negative Normal NORMAL: NEGATIVE [facility] Comment on above: Performed By: #### 2 49075 ####[facility],[address] [place] [address] Casts NONE Normal [facility] Comment on above: Performed By: #### 2 42211 ####[facility],[address] [place] [address] 53417 Clarity (U) clear Normal NORMAL: CLEAR [facility] Comment on above: Performed By: #### 2 57502 ####[facility],[address] [place] [address] 31953 Color (U) yellow Normal NORMAL: YELLOW [facility] Comment on above: Performed By: #### 2 38388 ####[facility],[address] [place] [address] 92525 Crystals LM Nom (Urine sed) NONE Normal [facility] Comment on above: Performed By: #### 2 97947 ####[facility],[address] [place] [address] 18442 Epi Cells MANY Normal [facility] Comment on above: Performed By: #### 2 72038 ####[facility],[address] [place] [address] 84057 Glucose Ql (U) NORM Normal NORMAL: NORMAL [facility] Comment on above: Performed By: #### 2 97316 ####[facility],[address] [place] [address] 24263 Hemoglobin Ql (U) 10 Abnormal NORMAL: NEGATIVE [facility] Comment on above: Performed By: #### 2 03485 ####[facility],[address] [place] [address] 09568 Ketone Negative Normal NORMAL: NEGATIVE [facility] Comment on above: Performed By: #### 2 10462 ####[facility],[address] [place] [address] 69150 Leukocytes Negative Normal NORMAL: NEGATIVE [facility] Comment on above: Performed By: #### 2 48307 ####[facility],[address] [place] [address] 28362 Mucous NONE Normal [facility] Comment on above: Performed By: #### 2 57142 ####[facility],[address] [place] [address] 01085 Nitrite Ql (U) Negative Normal NORMAL: NEGATIVE [facility] Comment on above: Performed By: #### 2 36325 ####[facility],[address] [place] [address] pH (U) 6 [pH] Normal NORMAL: 5.0-8.0 [facility] Comment on above: Performed By: #### 2 54023 ####[facility],[address] [place] [address] Protein Ql (U) Negative Normal NORMAL: NEGATIVE [facility] Comment on above: Performed By: #### 2 64423 ####[facility],[address] [place] [address] Rbc 0-5 Normal 0-3/hpf [facility] Comment on above: Performed By: #### 2 16121 ####[facility],[address] [place] [address] Sp [place] 1.015 Normal NORMAL: 1.010-1.030 [facility] Comment on above: Performed By: #### 2 12139 ####[facility],[address] [place] [address] Specimen Type R Normal [facility] Comment on above: Performed By: #### 2 23532 ####[facility],[address] [place] [address] Urinalysis dipstick W Reflex Microscopic panel (U) SEE BELOW Normal [facility] Comment on above: Result Comment: MICR OSCOPIC Performed By: #### 2 04533 ####[facility],[address] [place] [address] Urobilinog NORM Normal NORMAL: NORMAL [facility] Comment on above: Performed By: #### 2 15289 ####[facility],[address] [place] [address] Wbc NONE Normal 0-5/hpf [facility] Comment on above: Performed By: #### 2 84119 ####[facility],[address] [place] [address] 74670 Yeast NONE Normal [facility] Comment on above: Performed By: #### 2 29770 ####[facility],[address] [place] [address] 36165 CNPNon 08-29-2024 CNPN Telephone (INTMWS) -------- SALLY VARGAS ([id number]) 1980 F Date Time Provider Department 08/29/24 [...] 8 hours as needed for nausea/vomiting. - fxlupa-qbjqmfia-wfwdped (CREON 3) 3,000-9,500- 15,000 unit delayed release [...] blurred [H53. (more content not included)... Normal [facility] CNPNon 08-22-2024 CNPN Telephone (INTMWS) -------- SALLY VARGAS ([id number]) 1980 F Date Time Provider Department 08/22/24 [...] lip is blue. Patient was seen at [facility] ER on 08/21/2024 for back pain. No mention of lower blue lips in ER notes. Please review and advise, VIN Townsend Terri, APRN.PROVIDER ENGAGEMENT EXECUTIVE 08/22/2024 4:55 PM Signed Noted agree, if [...] 8 hours as needed for nausea/vomiting. - xwpjfn-vsyqxswb-qkrluvm (CREON 3) 3,000-9,500- 15,000 unit delayed release [...] extremity [ (more content not included)... Normal [facility] Emergency Department Summary on 08-21-2024 Emergency Department Summary [facility] Medical Records Department [address] [place] [address] Emergency Department Summary 08/21/24 MR#: [id number] Acct: [id number] Name: SALLY VARGAS Rep #: [id number] : 1980 43 From: Mac Whitmore DO PCP: Dr. Silverio Haley MD Status:DEP ER Location: ED HPI History of Present Illness Chief Complaint: Back Informant: patient Narrative Narrative: 43-year-old female with recurrent ED visits presenting to the emergency room with acute on chronic back pain. Patient states that she saw her primary care doctor a month ago and they mentioned that she has been having back pain. She states that she has sciatica. She is taking low-dose Flexeril. She states she is also on gabapentin but not specifically for the back. The patient states that she is supposed to see her doctor in about 10 days for the back. 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 She states today is more painful with movement. She denies any muscular weakness/foot drop. She notes the right side radiates to her lower leg but that has been an ongoing issue. No bowel or bladder dysfunction. No fever. No known active/treated malignancy or immunosuppression. She denies any rashes. [facility] Medical History Cancer Depression Rheumatoid [...] hydronephrosis History of renal calculi Home Medications ???Medication ???Instructions ???Recorded ???Last Taken ???Type gabapentin 400 mg capsule 400 mg PO TID PRN NEUROPATHY 10/03/20 12/02/23 History aripiprazole 10 mg tablet 10 mg PO DAILY DEPRESSION 10/25/23 12/02/23 History lorazepam 0.5 mg tablet 0.5 mg PO DAILY PRN ANXIETY #7 01/26/24 Unknown Rx tabs mesalamine 1.2 gram tablet,delayed 2.4 g (2 x 1.2 gram) PO DAILY 30 02/09/24 Unknown Rx release days #60 tabs trazodone 50 mg tablet 50 mg PO QHS 02/23/24 Unknown History hyoscyamine sulfate 0.125 mg 0.125 mg PO Q6H PRN abdominal 02/24/24 Unknown Rx disintegrating tablet discomfort #10 tabs diphenhydramine HCl 25 mg capsule 25 mg PO QHS 05/25/24 Unknown History (Allergy (diphenhydramine)) escitalopram oxalate 20 mg tablet 20 mg PO DAILY 05/25/24 Unknown History pantoprazole 40 mg tablet,delayed 40 mg PO DAILY 05/25/24 Unknown History release promethazine 25 mg tablet 25 mg PO Q8H PRN PRN 05/25/24 Unknown History nausea/vomiting ciprofloxacin HCl 500 mg tablet 500 mg PO BID 5 days #10 TABLETS 06/13/24 Unknown Rx cyclobenzaprine 10 mg tablet 10 mg PO TID PRN Muscle Spasm #15 08/21/24 Unknown Rx TABLETS Allergy/AdvReac Type Severity Reaction Status Date / Time Iodinated Contrast Media (CT) Allergy Anaphylaxis Verified 08/21/24 10:02 ketorolac tromethamine (From Allergy Rash Verified 08/21/24 10:02 Toradol) metronidazole (From Flagyl) Allergy Hives Verified 08/21/24 10:02 Penicillins Allergy Hives Verified 08/21/24 10:02 dicyclomine (From Bentyl) AdvReac Mild Hives Verified 08/21/24 10:02 aspirin AdvReac Upset Verified 08/21/24 10:02 Stomach Family History Aunt Breast cancer Grandfather [...] Constitutional Constitutional ED: Denies chills, fever(s) or weight loss Eyes Eyes: Denies change in vision or diplopia ENT ENT ED: Denies ear pain, rhinorrhea or sore throat Cardiovascular Cardiovascular: Denies chest pain, orthopnea, palpitations or racing heartbeat Respiratory/Chest Respiratory/Chest: Denies cough, dyspnea or orthopnea Gastrointestinal Gastrointestinal: Denies abdominal pain, diarrhea, nausea or vomiting Genitourinary Genitour (more content not included)... Normal [facility] Lumbar Spine 2 or 3 Viewson 08-21-2024 Lumbar Spine 2 or 3 Views [facility] Imaging Services [address] [place] [address] Lumbar Spine 2 or 3 Views MR#: [id number] Acct: [id number] Name: SALLY VARGAS Rep #: [id number] : 1980 F 43 From: Jadyn barboza MD PCP: Dr. Silverio Haley MD Status: DEP ER Study: Lumbar Spine 2 or 3 Views Date of Exam: Exam# [id number] Ordering Dr: Mac Whitmore DO [id number] HISTORY: pain. TECHNIQUE: XR Spine Lumbar 2 or 3 Views. COMPARISON: 05/01/2017. FINDINGS: VERTEBRAE: Vertebral body heights preserved. Posterior elements appear intact. ALIGNMENT: No significant anterior or posterior subluxation. Minimal dextrocurvature. INTERVERTEBRAL DISCS: Disc spaces maintained. SOFT TISSUES: Right upper quadrant surgical clips. RAD/Lumbar Spine 2 or 3 Views IMPRESSION: No acute fracture or dislocation identified in the lumbar spine. Electronically Signed: Jadyn Neff MD at 11:37 EST Reading Location ID and State: [facility] / [place] Tel , Service support , CC: Dr. Mac Whitmore DO; Dr. Silverio Haley MD [employer] Supervisor: [facility] Office Visit (UCWSTR ) -------- SALLY VARGAS ([id number]) 1980 F Date Time Provider Department 07/28/24 7:00 PM [facility] During your visit today, we recorded the following information about you: Temperature Pulse Respiration Blood pressure 98.5 degrees 96/minute 20/minute 116/78 Weight 90 kg Jonathan Bruce APRN.SALES MERCHANDISING SPECIALIST 07/28/2024 7:15 PM Signed CC: Patient presents [...] Benign liver cyst 05/24/2010 CT scan at [facility] 11/2009 and 04/2010 showe 4 mm increase in size. No pain. No elevated LFTs on 03/11/2010. Calculus of kidney 05/17/[address] Nicolas: Hospitalized age 20, and again later -- no procedures so far ([facility], [facility], 1995 [facility]) Cancer (HCC) COVID-19 virus infection 10/07/202109/2021 Diverticulosis [...] every 8 hours as needed for nausea/vomiting. raxcpl-xyliaflq-moqgqnx (CREON 3) 3,000-9,500- 15,000 unit delayed release capsule Take 1 capsule by mouth three times a day wi (more content not included)... [facility] SALLY [id number]) 1980 F Date Time Provider Department 07/28/24 SILVERIO HALEY INTTOÑITO During your visit today, we recorded the following information about you: Ivanna Torre RN 07/28/2024 4:30 PM Signed Patient calls to report that pharmacy won't fill hydrocodone cough medicine. Call placed to [facility] and spoke to Oh who reports [...] since Gretchen is not able. From triage: [facility] Pharmacy called back. I tried to [...] THE OFFICE for evaluation of ongoing cough. Jesica Baker MA 07/28/2024 6:17 PM Signed Spoke to [...] 8 hours as needed for nausea/vomiting. - pknkzb-ijcptgch-qrjrnwn (CREON 3) 3,000-9,500- 15,000 unit delayed release capsule Take 1 capsule by mouth three times a day with meals. - g (more content not included)... Normal [facility] XR CHEST 2V FRONTAL/LATon XR [...] the abdomen. IMPRESSION: No acute radiographic abnormality. [employer] Supervisor: PSCB Transcribe Date/Time: Jul 28 2024 7:35P Dictated by : KUN HALEY MD This examination was interpreted and the report reviewed and electronically signed by: KUN HALEY MD on Jul 28 2024 7:36PM EST [id number] Normal [facility] XR Chest PA and Lateralon IMPRESSION: No acute radiographic abnormality. [employer] Supervisor: PSCB Transcribe Date/Time: Jul 28 2024 7:35P [...] of the abdomen. DIVISION OF RADIOLOGY Provider, [facility] - 07/28/2024 * * *Final Report* * [...] abdomen. IMPRESSION IMPRESSION: No acute radiographic abnormality. [employer] Supervisor: HERMINIO Transcribe Date/Time: Jul 28 2024 7:35P Dictated by : KUN HALEY MD This examination was interpreted and the report reviewed and electronically signed by: KUN HALEY MD on Jul 28 2024 7:36PM EST [facility] Radiology Study observation (narrative) [facility] XR Chest PA and LateralOrder ed By: [facility] Provider on 07-28-[address] [facility] CNPNon 07-19-2024 CNPN Telephone (INTMWS) -------- SALLY VARGAS ([id number]) 1980 F Date Time Provider Department 07/19/24 [...] 8 hours as needed for nausea/vomiting. - nmgosu-hyrmijyg-jhbzrcc (CREON 3) 3,000-9,500- 15,000 unit delayed release [...] [R20.0] 02/23/2017 (more content not included)... Normal [facility] ED MED ADMINISTRATION DETAIL on 07-17-2024 ED MED ADMINISTRATION DETAIL Normal [facility] ED NURSES CLINICAL NOTEon ED NURSES CLINICAL NOTE Normal [facility] ED ORDER SHEET (CPOE ONLY)on 07-17-2024 ED ORDER SHEET (CPOE ONLY) Normal [facility] ED PHYSICIAN CLINICAL REPORT on 07-17-2024 ED PHYSICIAN CLINICAL REPORT Normal [facility] ED PHYSICIAN DISCHARGE REPOR Ton 07-17-2024 ED PHYSICIAN DISCHARGE REPORT Normal [facility] ED SUPER BILLon 07-17-2024 ED SUPER BILL Normal [facility] ED VISIT SUMMARYon ED VISIT SUMMARY Normal [facility] ED VITALS FLOW SHEETon 07-17 ED VITALS FLOW SHEET Normal [facility] CBC + DIFFon 07-15-2024 Baso # 0.01 x10EE3/UL Normal 0.00 - 0.10 [facility] Comment on above: Performed By: #### 2 17376 ####[facility],[address] [place] [address] Basophils/100 WBC (Bld) 0.1 % Normal 0.0 - 2.0 [facility] Comment on above: Performed By: #### 2 47935 ####[facility],[address] [place] [address] CBC + DIFF Normal [facility] Comment on above: Result Comment: CBC- COMPLETE BLOOD COUNT Performed By: #### 2 02691 ####[facility],[address] [place] [address] EO # 0.30 x10EE3/UL Normal 0.00 - 0.50 [facility] Comment on above: Performed By: #### 2 77076 ####[facility],[address] [place] [address] 69034 Eosinophils/100 WBC (Bld) 3.4 % Normal 0.0 - 7.0 [facility] Comment on above: Performed By: #### 2 85002 ####[facility],[address] [place] [address] Erythrocyte distribution width (RBC) [Ratio] 12.9 % Normal 12.0 - 15.6 [facility] Comment on above: Performed By: #### 2 25083 ####[facility] [facility],[address] [place] [address] Hematocrit (Bld) [Volume fraction] 41.5 % Normal 34.0 - 46.0 [facility] Comment on above: Performed By: #### 2 84968 ####[place] [address] Hemoglobin (Bld) [Mass/Vol] 13.9 g/dL Normal 12.0 - 16.0 [facility] Comment on above: Performed By: #### 2 76564 ####[facility],[address] [place] [address] 32331 Lymph # 4.27 x10EE3/UL High 0.80 - 2.80 [facility] Comment on above: Performed By: #### 2 94778 ####[facility],[address] [place], [place] [id number] Lymphocytes/100 WBC (Bld) 48.3 % High 20.0 - 45.0 [facility] Comment on above: Performed By: #### 2 42480 ####[place] [id number] MANUAL DIFF N/A Normal [facility] Comment on above: Performed By: #### 2 30185 ####[address] [address] MCH (RBC) [Entitic mass] 30 pg Normal 27 - 33 [facility] Comment on above: Performed By: #### 2 79876 ####[facility],[address] [place] [address]1058 MCHC 34 X10 3 Normal 32 - 36 [facility] Comment on above: Performed By: #### 2 49049 ####[facility],[address] [place] [address] 72038 MCV (RBC) [Entitic vol] 89 fL Normal 80 - 99 [facility] Comment on above: Performed By: #### 2 02482 ####[facility],[address] [place] [address]309 Bacon # 0.62 x10EE3/UL Normal 0.20 - 1.00 [facility] Comment on above: Performed By: #### 2 94588 ####[facility],[address] [place] [address] 07369 MONOS % 7.0 % Normal 0.0 - 10.0 [facility] Comment on above: Performed By: #### 2 54936 ####[facility],[address] [place] [address] 88281 Morphology Adrian (Bld) [Interp] N/A Normal [facility] Comment on above: Performed By: #### 2 95342 ####[facility],[address] [place] [address] 20319 Neut # 3.65 x10EE3/UL Normal 1.50 - 7.10 [facility] Comment on above: Performed By: #### 2 73486 ####[facility],[address] [place] [address] 90874 Neutrophils/100 WBC (Bld) 41.3 % Low 46.0 - 76.0 [facility] Comment on above: Performed By: #### 2 60363 ####[facility],[address] [place] [address] 61690 PLATELET 258 x10EE3/UL Normal 150 - 450 [facility] Comment on above: Performed By: #### 2 71607 ####[facility],[address] [place] [address] 89092 Platelet mean volume (Bld) [Entitic vol] 7.9 fL Normal 6.6 - 10.5 [facility] Comment on above: Result Comment: AUTO MATED DIFFERENTIAL Performed By: #### 2 47468 ####[facility],[address] [place], [place] [phone] RBC 4.66 x 10EE6/UL Normal 4.10 - 5.30 [facility] Comment on above: Performed By: #### 2 48824 ####[facility],[address] [place] [address] WBC 8.9 x 10EE3/UL Normal 4.5 - 10.8 [facility] Comment on above: Performed By: #### 2 95713 ####[facility],[address] [place], [place] [phone] CMP with eGFRon 07-15-2024 AGE 43 years Normal [facility] Comment on above: Performed By: #### 2 03211 ####[facility],[address] [place], [place] [phone] Albumin [Mass/Vol] 4.2 g/dL Normal 3.4 - 5.0 [facility] Comment on above: Performed By: #### 2 08949 ####[facility],[address] [place], [place] [phone] Albumin/Globulin [Mass ratio] 1.1 {ratio} Normal 0.9 - 1.6 [facility] Comment on above: Performed By: #### 2 07807 ####[address] [address] ALK PHOS 133 U/L High 46 - 116 [facility] Comment on above: Performed By: #### 2 52680 ####[facility],[address] [place], [place] [phone] ALT [Catalytic activity/Vol] 24 U/L Normal 16 - 63 [facility] Comment on above: Performed By: #### 2 54330 ####[facility],[address] [place], [place] [phone] Anion gap [Moles/Vol] 16 mmol/L Normal 10 - 20 [facility] Comment on above: Performed By: #### 2 36180 ####[facility],[address] [place] [address] AST [Catalytic activity/Vol] 15 U/L Normal 13 - 39 [facility] Comment on above: Performed By: #### 2 63530 ####[facility],[address] [place] [address] B/C RATIO 11 ratio Normal 0 - 30 [facility] Comment on above: Performed By: #### 2 21624 ####[facility],[address] [place] [address] Bilirubin [Mass/Vol] 0.5 mg/dL Normal 0.2 - 1.0 [facility] Comment on above: Performed By: #### 2 58198 ####[facility],[address] [place], [place] [phone] Calcium [Mass/Vol] 9.4 mg/dL Normal 8.5 - 10.1 [facility] Comment on above: Performed By: #### 2 12198 ####[facility],[address] [place], [place] [phone] Chloride [Moles/Vol] 105 mmol/L Normal 98 - 107 [facility] Comment on above: Performed By: #### 2 84835 ####[facility],[address] [place], [place] [phone] CMP with eGFR Normal [facility] Comment on above: Result Comment: COMP REHENSIVE METABOLIC PANEL Performed By: #### 2 87835 ####[facility],[address] [place] [address] 21199 CO2 [Moles/Vol] 24.7 mmol/L Normal 21.0 - 32.0 [facility] Comment on above: Performed By: #### 2 98989 ####[address] [address] Creatinine [Mass/Vol] 1.22 mg/dL High 0.55 - 1.02 [facility] Comment on above: Performed By: #### 2 80476 ####[facility],[address] [place] [address] eGFR 48 ML/MINUTE Low 60 - 999 [facility] Comment on above: Performed By: #### 2 12110 ####[place] [address] eGFR(AA) 58 ML/MINUTE Low 60 - 999 [facility] Comment on above: Result Comment: ACCO RDING TO THE NATIONAL KIDNEY DISEASE EDUCATION PROGRAM(NKDE), A NORMAL eGFRIS A VALUE GREATER THAN OR EQUAL TO 60 ML/MIN/1.73 SQ METERS.CHRONIC KIDNEY DISEASE: <60mL/MIN/1.73 SQ METERSKIDNEY FAILURE: <15mL/MIN/1.73 SQ METERSTHIS TEST SHOULD ONLY BE USED FOR PATIENTS 18 YEARS OF AGE AND OLDER. Performed By: #### 2 87021 ####[facility],[address] [place] [address]14 Globulin (S) [Mass/Vol] 3.7 g/dL Normal 1.5 - 3.8 [facility] Comment on above: Performed By: #### 2 39434 ####[address] [address] Glucose [Mass/Vol] 124 mg/dL High 74 - 106 [facility] Comment on above: Performed By: #### 2 75044 ####[address] [address] Potassium [Moles/Vol] 3.4 mmol/L Low 3.5 - 5.1 [facility] Comment on above: Performed By: #### 2 62677 ####[facility],[address] [place] [address] Protein [Mass/Vol] 7.9 g/dL Normal 6.4 - 8.2 [facility] Comment on above: Performed By: #### 2 35643 ####[facility],[address] [place] [address]11 Sodium [Moles/Vol] 142 mmol/L Normal 136 - 145 [facility] Comment on above: Performed By: #### 2 98750 ####[address] [address] Urea nitrogen [Mass/Vol] 14 mg/dL Normal 7 - 18 [facility] Comment on above: Performed By: #### 2 44667 ####[address] [address] LIPASEon 07-15-2024 Lipase [Catalytic activity/Vol] 66.0 U/L Normal 15.0 - 78.0 [facility] Comment on above: Result Comment: *PLE ASE NOTE THAT RANGES FOR LIPASE HAVE CHANGED OF 09/11/23 DUE TO AN ASSAYUPDATE BY THE SENIOR ACCOUNTING CLERK.THE NEW ASSAY RANGE IS 6-250 U/L, WITH A REFERENCERANGE OF 16-77 U/L. Performed By: #### 2 53887 ####[address] [address] URINALYSISon 07-15-2024 Amorphous NONE Normal [facility] Comment on above: Performed By: #### 2 31704 ####[address] [address] Bacteria 3+ Normal [facility] Comment on above: Performed By: #### 2 43116 ####[address] [address] Bilirubin Ql (U) Negative Normal NORMAL: NEGATIVE [facility] Comment on above: Performed By: #### 2 71796 ####[facility],[address] [place] [address]13 Calcium Ox 1+ Normal NORMAL: NONE [facility] Comment on above: Performed By: #### 2 25973 ####[facility],[address] [place], [place] [phone] Casts NONE Normal [facility] Comment on above: Performed By: #### 2 13749 ####[facility],[address] [place], [place] [phone] Clarity (U) clear Normal NORMAL: CLEAR [facility] Comment on above: Performed By: #### 2 84791 ####[facility],[address] [place] [address] Color (U) yellow Normal NORMAL: YELLOW [facility] Comment on above: Performed By: #### 2 24958 ####[facility],[address] [place] [address] Crystals LM Nom (Urine sed) SEE BELOW Normal [facility] Comment on above: Performed By: #### 2 13536 ####[facility],[address] [place], [place] [phone] Epi Cells MODERATE Normal [facility] Comment on above: Performed By: #### 2 23761 ####[facility],[address] [place] [address]758 Glucose Ql (U) NORM Normal NORMAL: NORMAL [facility] Comment on above: Performed By: #### 2 94986 ####[facility],[address] [place] [address] Hemoglobin Ql (U) 50 Abnormal NORMAL: NEGATIVE [facility] Comment on above: Performed By: #### 2 27892 ####[facility],[address] [place] [address] Ketone Negative Normal NORMAL: NEGATIVE [facility] Comment on above: Performed By: #### 2 33532 ####[facility],[address] [place], [place] [phone] Leukocytes Negative Normal NORMAL: NEGATIVE [facility] Comment on above: Performed By: #### 2 70972 ####[facility],[address] [place] [address]695 Mucous 2+ Normal [facility] Comment on above: Performed By: #### 2 52781 ####[facility],[address] [place] [address] 10832 Nitrite Ql (U) Negative Normal NORMAL: NEGATIVE [facility] Comment on above: Performed By: #### 2 38868 ####[facility],[address] [place] [address]6048 pH (U) 5 [pH] Normal NORMAL: 5.0-8.0 [facility] Comment on above: Performed By: #### 2 97285 ####[facility],[address] [place] [address] Protein Ql (U) 15 Abnormal NORMAL: NEGATIVE [facility] Comment on above: Performed By: #### 2 12647 ####[facility],[address] [place] [address]7555 Rbc 0-5 Normal 0-3/hpf [facility] Comment on above: Performed By: #### 2 15154 ####[facility],[address] [place] [address] Sp [place] 1.030 Normal NORMAL: 1.010-1.030 [facility] Comment on above: Performed By: #### 2 08172 ####[facility],[address] [place], [place] [phone] Specimen Type UNSPECIFIED Normal [facility] Comment on above: Performed By: #### 2 57082 ####[facility],[address] [place], [place] [phone] Urinalysis dipstick W Reflex Microscopic panel (U) SEE BELOW Normal [facility] Comment on above: Result Comment: MICR OSCOPIC Performed By: #### 2 81565 ####[facility],[address] [place] [address] Urobilinog NORM Normal NORMAL: NORMAL [facility] Comment on above: Performed By: #### 2 84130 ####[facility],[address] [place], [place] [phone] Wbc 1-5 Normal 0-5/hpf [facility] Comment on above: Performed By: #### 2 92425 ####[facility],[address] [place], [place] [phone] Yeast NONE Normal [facility] Comment on above: Performed By: #### 2 93832 ####[facility],[address] [place] [address] ED FACILITY CODING SUMMARYon 07-03-2024 ED FACILITY CODING SUMMARY Normal [facility] ED MED ADMINISTRATION DETAIL on 07-03-2024 ED MED ADMINISTRATION DETAIL Normal [facility] ED NURSES CLINICAL NOTEon ED NURSES CLINICAL NOTE Normal [facility] ED ORDER SHEET (CP[facility] ONLY)on 07-03-2024 ED ORDER SHEET (CPOE ONLY) Normal [facility] ED PHYS CODING ABST SUMMARYo n 07-03-2024 ED PHYS CODING ABST SUMMARY Normal [facility] ED PHYSICIAN CLINICAL REPORT on 07-03-2024 ED PHYSICIAN CLINICAL REPORT Normal [facility] ED PHYSICIAN DISCHARGE REPOR Ton 07-03-2024 ED PHYSICIAN DISCHARGE REPORT Normal [facility] ED SUPER BILLon 07-03-2024 ED SUPER BILL Normal [facility] ED VISIT SUMMARYon ED VISIT SUMMARY Normal [facility] CBC + DIFFon 07-02-2024 Baso # 0.01 x10EE3/UL Normal 0.00 - 0.10 [facility] Comment on above: Performed By: #### 2 84661 ####[facility],[address] [place] [address] Basophils/100 WBC (Bld) 0.3 % Normal 0.0 - 2.0 [facility] Comment on above: Performed By: #### 2 53480 ####[facility],[address] [place], [place] [phone] CBC + DIFF Normal [facility] Comment on above: Result Comment: CBC- COMPLETE BLOOD COUNT Performed By: #### 2 79347 ####[facility],[address] [place] [address]270 EO # 0.22 x10EE3/UL Normal 0.00 - 0.50 [facility] Comment on above: Performed By: #### 2 83102 ####[facility],[address] [place] [address]84 Eosinophils/100 WBC (Bld) 4.0 % Normal 0.0 - 7.0 [facility] Comment on above: Performed By: #### 2 41606 ####[facility],[address] [place] [address] Erythrocyte distribution width (RBC) [Ratio] 13.0 % Normal 12.0 - 15.6 [facility] Comment on above: Performed By: #### 2 37780 ####[facility],[address] [place] [address] Hematocrit (Bld) [Volume fraction] 41.9 % Normal 34.0 - 46.0 [facility] Comment on above: Performed By: #### 2 09456 ####[facility],[address] [place], [place] [phone] Hemoglobin (Bld) [Mass/Vol] 13.9 g/dL Normal 12.0 - 16.0 [facility] Comment on above: Performed By: #### 2 05911 ####[facility],[address] [place] [address]352 Lymph # 2.24 x10EE3/UL Normal 0.80 - 2.80 [facility] Comment on above: Performed By: #### 2 42757 ####[facility],[address],[place] [address] Lymphocytes/100 WBC (Bld) 40.7 % Normal 20.0 - 45.0 [facility] Comment on above: Performed By: #### 2 62996 ####[facility],[address] [place] [address] MANUAL DIFF N/A Normal [facility] Comment on above: Performed By: #### 2 53245 ####[facility],[address] [place] [address] MCH (RBC) [Entitic mass] 30 pg Normal 27 - 33 [facility] Comment on above: Performed By: #### 2 42124 ####[facility],[address] [place] [address] MCHC 33 X10 3 Normal 32 - 36 [facility] Comment on above: Performed By: #### 2 31925 ####[facility],[address] [place] [address] MCV (RBC) [Entitic vol] 89 fL Normal 80 - 99 [facility] Comment on above: Performed By: #### 2 90565 ####[facility],[address] [place] [address] Bacon # 0.34 x10EE3/UL Normal 0.20 - 1.00 [facility] Comment on above: Performed By: #### 2 61087 ####[facility],[address] [place] [address] MONOS % 6.3 % Normal 0.0 - 10.0 [facility] Comment on above: Performed By: #### 2 91535 ####[facility],[address] [place], [place] [phone] Morphology Adrian (Bld) [Interp] N/A Normal [facility] Comment on above: Performed By: #### 2 54763 ####[facility],[address] [place] [address] Neut # 2.69 x10EE3/UL Normal 1.50 - 7.10 [facility] Comment on above: Performed By: #### 2 42452 ####[facility],[address] [place] [address] Neutrophils/100 WBC (Bld) 48.8 % Normal 46.0 - 76.0 [facility] Comment on above: Performed By: #### 2 87523 ####[facility],[address] [place], [place] [phone] PLATELET 245 x10EE3/UL Normal 150 - 450 [facility] Comment on above: Performed By: #### 2 37091 ####[place] [address] Platelet mean volume (Bld) [Entitic vol] 7.3 fL Normal 6.6 - 10.5 [facility] Comment on above: Result Comment: AUTO MATED DIFFERENTIAL Performed By: #### 2 91849 ####[place] [address] RBC 4.70 x 10EE6/UL Normal 4.10 - 5.30 [facility] Comment on above: Performed By: #### 2 48302 ####[facility],[address] [place], [place] [phone] WBC 5.5 x 10EE3/UL Normal 4.5 - 10.8 [facility] Comment on above: Performed By: #### 2 65435 ####[facility],[address] [place], [place] [phone] CMP with eGFRon 07-02-2024 AGE 43 years Normal [facility] Comment on above: Performed By: #### 2 90234 ####[place] [phone] Albumin [Mass/Vol] 3.8 g/dL Normal 3.4 - 5.0 [facility] Comment on above: Performed By: #### 2 69340 ####[place] [phone] Albumin/Globulin [Mass ratio] 1.0 {ratio} Normal 0.9 - 1.6 [facility] Comment on above: Performed By: #### 2 27253 ####[facility],[address] [place], [place] [phone] ALK PHOS 110 U/L Normal 46 - 116 [facility] Comment on above: Performed By: #### 2 69908 ####[facility],[address] [place] [address] ALT [Catalytic activity/Vol] 27 U/L Normal 16 - 63 [facility] Comment on above: Performed By: #### 2 67281 ####[facility],[address] [place] [address] Anion gap [Moles/Vol] 11 mmol/L Normal 10 - 20 [facility] Comment on above: Performed By: #### 2 15153 ####[facility],[address] [place] [address] AST [Catalytic activity/Vol] 19 U/L Normal 13 - 39 [facility] Comment on above: Performed By: #### 2 12764 ####[facility],[address] [place] [address] B/C RATIO 5 ratio Normal 0 - 30 [facility] Comment on above: Performed By: #### 2 19938 ####[facility],[address] [place] [address] Bilirubin [Mass/Vol] 0.8 mg/dL Normal 0.2 - 1.0 [facility] Comment on above: Performed By: #### 2 49532 ####[facility],[address] [place] [address] Calcium [Mass/Vol] 9.0 mg/dL Normal 8.5 - 10.1 [facility] Comment on above: Performed By: #### 2 48249 ####[facility],[address] [place], [place] [phone] Chloride [Moles/Vol] 103 mmol/L Normal 98 - 107 [facility] Comment on above: Performed By: #### 2 53069 ####[facility],[address] [place], [place] [phone] CMP with eGFR Normal [facility] Comment on above: Result Comment: COMP REHENSIVE METABOLIC PANEL Performed By: #### 2 96163 ####[facility],[address] [place] [address] CO2 [Moles/Vol] 29.4 mmol/L Normal 21.0 - 32.0 [facility] Comment on above: Performed By: #### 2 98570 ####[facility],[address] [place] [address] Creatinine [Mass/Vol] 1.30 mg/dL High 0.55 - 1.02 [facility] Comment on above: Performed By: #### 2 30029 ####[facility],[address] [place] [address] eGFR 44 ML/MINUTE Low 60 - 999 [facility] Comment on above: Performed By: #### 2 50388 ####[facility],[address] [place] [address] eGFR(AA) 54 ML/MINUTE Low 60 - 999 [facility] Comment on above: Result Comment: ACCO RDING TO THE NATIONAL KIDNEY DISEASE EDUCATION PROGRAM(NKDE), A NORMAL eGFRIS A VALUE GREATER THAN OR EQUAL TO 60 ML/MIN/1.73 SQ METERS.CHRONIC KIDNEY DISEASE: <60mL/MIN/1.73 SQ METERSKIDNEY FAILURE: <15mL/MIN/1.73 SQ METERSTHIS TEST SHOULD ONLY BE USED FOR PATIENTS 18 YEARS OF AGE AND OLDER. Performed By: #### 2 80833 ####[facility],[address] [place], [place] [phone] Globulin (S) [Mass/Vol] 4.0 g/dL High 1.5 - 3.8 [facility] Comment on above: Performed By: #### 2 99442 ####[facility],[address] [place] [address]269 Glucose [Mass/Vol] 92 mg/dL Normal 74 - 106 [facility] Comment on above: Performed By: #### 2 40195 ####[facility],[address] [place] [address]137 Potassium [Moles/Vol] 3.7 mmol/L Normal 3.5 - 5.1 [facility] Comment on above: Performed By: #### 2 39911 ####[facility],[address] [place] [address]442 Protein [Mass/Vol] 7.8 g/dL Normal 6.4 - 8.2 [facility] Comment on above: Performed By: #### 2 10932 ####[address] [address] Sodium [Moles/Vol] 140 mmol/L Normal 136 - 145 [facility] Comment on above: Performed By: #### 2 01731 ####[facility],[address] [place] [address] Urea nitrogen [Mass/Vol] 7 mg/dL Normal 7 - 18 [facility] Comment on above: Performed By: #### 2 64374 ####[place] [phone] LIPASEon 07-02-2024 Lipase [Catalytic activity/Vol] 24.0 U/L Normal 15.0 - 78.0 [facility] Comment on above: Result Comment: *PLE ASE NOTE THAT RANGES FOR LIPASE HAVE CHANGED OF 09/11/23 DUE TO AN ASSAYUPDATE BY THE SENIOR ACCOUNTING CLERK.THE NEW ASSAY RANGE IS 6-250 U/L, WITH A REFERENCERANGE OF 16-77 U/L. Performed By: #### 2 11999 ####[place] [id number] URINALYSISon 07-02-2024 Bilirubin Ql (U) Negative Normal NORMAL: NEGATIVE [facility] Comment on above: Performed By: #### 2 05356 ####[facility],[address] [place] [address]277 Clarity (U) clear Normal NORMAL: CLEAR [facility] Comment on above: Performed By: #### 2 51873 ####[facility],[address] [place] [address] 88518 Color (U) yellow Normal NORMAL: YELLOW [facility] Comment on above: Performed By: #### 2 99358 ####[facility],[address] [place] [address] 88268 Glucose Ql (U) NORM Normal NORMAL: NORMAL [facility] Comment on above: Performed By: #### 2 47746 ####[facility],[address] [place] [address] 84283 Hemoglobin Ql (U) Negative Normal NORMAL: NEGATIVE [facility] Comment on above: Performed By: #### 2 16188 ####[facility],[address] [place] [address] 34945 Ketone Negative Normal NORMAL: NEGATIVE [facility] Comment on above: Performed By: #### 2 94440 ####[facility],[address] [place] [address] 35275 Leukocytes Negative Normal NORMAL: NEGATIVE [facility] Comment on above: Performed By: #### 2 95938 ####[facility],[address] [place] [address] 89028 Nitrite Ql (U) Negative Normal NORMAL: NEGATIVE [facility] Comment on above: Performed By: #### 2 06096 ####[facility],[address] [place] [address] 61303 pH (U) 6.5 [pH] Normal NORMAL: 5.0-8.0 [facility] Comment on above: Performed By: #### 2 27229 ####[facility],[address] [place] [address] Protein Ql (U) Negative Normal NORMAL: NEGATIVE [facility] Comment on above: Performed By: #### 2 [id number] ####[facility],[address] [place] [address] Sp [place] 1.015 Normal NORMAL: 1.010-1.030 [facility] Comment on above: Performed By: #### 2 02959 ####[facility],[address] [place] [address] Specimen Type R Normal [facility] Comment on above: Performed By: #### 2 [id number] ####[facility],[address] [place] [address] Urinalysis dipstick W Reflex Microscopic panel (U) NOT INDICATED Normal [facility] Comment on above: Performed By: #### 2 [id number] ####[facility],[address] [place] [address] Urobilinog NORM Normal NORMAL: NORMAL [facility] Comment on above: Performed By: #### 2 [id number] ####[facility],[address] [place] [address] CNPCarly 06-28-2024 [facility] -------- SALLY VARGAS ([id number]) 1980 F Date Time Provider Department 06/28/24 [facility] During your visit today, we recorded the following information about you: Renetta Hernández, VIN 06/28/2024 4:43 PM Signed Patient reports her hydrocodone-homatropine cough syrup was last ordered for the dates of 06/21/24 to 06/28/24 and she has 1 dose left and will be out. New hydrocodone-homatropine cough syrup prescription is to start on 06/30/24. Patient asking if the date on the new prescription can be changed to 06/29/24? Please call patient with update at [phone]. Thank you. Ivanna Torre RN 06/28/2024 4:49 [...] 8 hours as needed for nausea/vomiting. - izemwj-dftuzgvy-zteqglk (CREON 3) 3,000-9,500- 15,000 unit delayed release [...] [H53.8] 02/24/20 (more content not included)... [facility] Tele[facility] ([facility]) -------- SALLY VARGAS ([id number]) 1980 F Date Time Provider Department 06/27/24 [facility] During your visit today, we recorded the [...] to check status of request. she uses [facility] for her pharmacy. Edwina Tatum LPN 06/28/2024 [...] 8 hours as needed for nausea/vomiting. - veduej-ziyztbgj-wfnjlhf (CREON 3) 3,000-9,500- 15,000 unit delayed release capsule Take 1 capsule by mouth three times a day with meals. - gabapentin (NEURONTIN) 400 mg (more content not included)... Normal [facility] 06-20-2024 [facility] -------- SALLY VARGAS ([id number]) 1980 F Date Time Provider Department 06/20/24 [facility] During your visit today, [...] Please review and advise. DAVID Chairez Terri, APRN.PROVIDER ENGAGEMENT EXECUTIVE 06/20/2024 3:11 PM Signed If she is [...] Please review and advise, VIN Townsend Terri, APRN.PROVIDER ENGAGEMENT EXECUTIVE 06/20/2024 4:36 PM Signed She can take an bynk-mqw-sfuughb cough medicine such as delsym and take [...] - lip (more content not included)... Normal [facility] 06-15-2024 [facility] -------- SALLY VARGAS ([id number]) 1980 F Date Time Provider Department 06/15/24 [...] 8 hours as needed for nausea/vomiting. - sokipu-eilgjjnp-jrrrlqk (CREON 3) 3,000-9,500- 15,000 unit delayed release [...] [U07.1] 10/07/2021 (more content not included)... Normal [facility]NP[facility] Telephone (INT[facility]) -------- SALLY VARGAS ([id number]) 1980 F Date Time Provider Department 06/15/24 [facility]IL[facility] During your visit today, we recorded the following information about you: Whit Guardado LPN 06/15/2024 10:56 AM Signed Patient calling she said had virtual visit with INORGANIC CHEMIST this morning, she was not given any rx. Patient said she has cough for past week, yellow secretions, no chest tightness, no fever, sore throat from post nasal drainage, patient said she can not sleep due to the cough. Patient asking for prednisone and cough syrup with codeine rx to be sent to [facility] pharmacy. Please advise Whit Guardado LPN 06/15/2024 [...] back wants to have virtual visit with INORGANIC CHEMIST. She is asking for prednisone, rx cough syrup, antibiotics rx. She was not happy with virtual visit with Jaja Chahal INORGANIC CHEMIST. She can not come in for in person appt, no transportation. Aware PCP and Merced Hutchinson INORGANIC CHEMIST are out of office today. Scheduled patient with Gretchen Newton INORGANIC CHEMIST at 240 pm for virtual visit today. [...] 8 hours as needed for nausea/vomiting. - jntmji-rjercule-scwdqum (CREON 3) 3,000-9,500- 15,000 unit delayed release [...] 06/18/2016 Hydronephr (more content not included)... Normal [facility] Urine Cultureon 06-15-2024 [facility] Clinical correlation necessary, Possible skin contamination. Presumptive Lactobacillus sp. [place] Count 50,000-80,000 Normal [facility] Comment on above: Performed By: #### M 100.678, L400.0001 #### [facility] [address] [place], [place], [id number] Abdomen/Pelvis W IV Cont ONL Yon 06-13-2024 Abdomen/Pelvis W IV Cont ONLY [facility] Imaging Services [address] [place], [place] [address] Abdomen/Pelvis W IV Cont ONLY MR#: [id number] Acct: [id number] Name: SALLY VARGAS Rep #: [id number] : 1980 F 43 From: Joe monzon DO PCP: Dr. Silverio Haley MD Status: REG ER Study: Abdomen/Pelvis W IV Cont ONLY Date of Exam: Exam# [id number] Ordering Dr: Leonardo Farr DO [id number] EXAM: CT ABDOMEN AND PELVIS WITH INTRAVENOUS CONTRAST CLINICAL INDICATION: Abdominal pain TECHNIQUE: Helically acquired images were obtained of the abdomen and pelvis with intravenous contrast. This CT exam was performed using one or more of the following dose reduction techniques: automated exposure control, adjustment of the mA and/or kV according to patient size, and/or use of iterative reconstruction technique. CONTRAST: IV 100mL Isovue-370 COMPARISON: 05/28/2024 FINDINGS: LIMITATIONS: Examination is limited due to motion related artifacts. LOWER THORAX: No significant abnormality. Lung bases are clear. No cardiomegaly. No significant pericardial effusion. ABDOMEN: LIVER: There are multiple hepatic cysts for which no follow-up is indicated. GALLBLADDER AND BILE DUCTS: Status post cholecystectomy. No intra- or extrahepatic biliary ductal dilation. PANCREAS: No significant abnormality. No focal cystic or solid mass. SPLEEN: No significant abnormality. Normal size without focal cystic or solid mass. ADRENALS: No significant abnormality. No nodules. KIDNEYS AND URETERS: Multiple nonobstructing left renal calyceal stones are present, the largest measuring 2 to 3 mm. No definitive ureteral stone and no hydronephrosis. Normal renal size and position. STOMACH AND BOWEL: No significant abnormality. No stomach or bowel distention. No focal inflammatory change. PELVIS: APPENDIX: Normal appendix is identified in the right lower quadrant. BLADDER: No significant abnormality. REPRODUCTIVE: Normal as visualized. No mass. ABDOMEN and PELVIS: INTRAPERITONEAL SPACE: No significant abnormality. No ascites or other fluid collection. No free air. BONES/JOINTS: Degenerative changes in the spine and hips. No suspicious lytic or blastic abnormality. SOFT TISSUES: Small fat-containing periumbilical hernia. VASCULATURE: No significant abnormality. Abdominal aorta is non-dilated. LYMPH NODES: No significant abnormality. No enlarged lymph nodes. CT/Abdomen/Pelvis W IV Cont ONLY IMPRESSION: Multiple nonobstructing left renal calyceal stones are present, the largest measuring 2 to 3 mm. No definitive ureteral stone and no hydronephrosis. Calcification in the pelvis near the left ureterovesicular junction is unchanged and is likely a phlebolith. No additional acute findings. Electronically Signed: Joe Zimmerman DO at 21:06 EDT , CC: Dr. Leonardo Farr DO; Dr. Silverio Haley MD [employer] Supervisor: Signed Normal [facility] CBC W/Diff, Automatedon 09-3 -2023 Absolute Lymph 2.60 X10 3/uL Normal 0.83-4.51 [facility] Comment on above: Performed By: #### L 500.3637, L501.2450, L100.0100 #### [facility] [address] [place], [address] Absolute Neut 4.8 X10 3/uL Normal 2.0-7.7 [facility] Comment on above: Performed By: #### L 500.4050, L501.2450, L100.0100 #### [facility] [address] [place], [address] Basophils/100 WBC (Bld) 0.5 % Normal 0-1 [facility] Comment on above: Performed By: #### L 500.4050, L501.2450, L100.0100 #### [facility] [address] [place], [address] Eosinophils/100 WBC (Bld) 2.7 % Normal 0-5 [facility] Comment on above: Performed By: #### L 500.4050, L501.2450, L100.0100 #### [facility] [address] [place], [address] Erythrocyte distribution width (RBC) [Ratio] 12.3 % Normal 11.6-14.6 [facility] Comment on above: Performed By: #### L 500.4050, L501.2450, L100.0100 #### [facility] [address] [place], [address] Hematocrit (Bld) [Volume fraction] 38.2 % Normal 37-47 [facility] Comment on above: Performed By: #### L 500.4050, L501.2450, L100.0100 #### [facility] [address] [place], [address] Hemoglobin (Bld) [Mass/Vol] 12.3 g/dL Normal 12.0-15.0 [facility] Comment on above: Performed By: #### L 500.4050, L501.2450, L100.0100 #### [facility] [address] [place], [address] IG% 1.200 High 0.0-0.9 [facility] Comment on above: Result Comment: IG% - Immature Granulocytes (promyelocytes, myelocytes and metamyelocytes) > 1% indicates that a LEFT SHIFT is Present. Performed By: #### L 500.4050, L501.2450, L100.0100 #### [facility] [address] [place], [address] Lymphocytes/100 WBC (Bld) 31.6 % Normal 19-41 [facility] Comment on above: Performed By: #### L 500.4050, L501.2450, L100.0100 #### [facility] [address] [place], [address] MCH (RBC) [Entitic mass] 29.5 pg Normal 27.0-32.0 [facility] Comment on above: Performed By: #### L 500.4050, L501.2450, L100.0100 #### [facility] [address] [place], [address] MCHC (RBC) [Mass/Vol] 32.2 g/dL Normal 32-36 [facility] Comment on above: Performed By: #### L 500.4050, L501.2450, L100.0100 #### [facility] [address] [place], [address] MCV (RBC) [Entitic vol] 91.6 fL Normal 81-99 [facility] Comment on above: Performed By: #### L 500.4050, L501.2450, L100.0100 #### [facility] [address] [place], [address] Monocytes/100 WBC (Bld) 5.2 % Normal 0-10 [facility] Comment on above: Performed By: #### L 500.4050, L501.2450, L100.0100 #### [facility] [address] [place], [address] Neutrophils/100 WBC (Bld) 58.8 % Normal 47-70 [facility] Comment on above: Performed By: #### L 500.4050, L501.2450, L100.0100 #### [facility] [address] [place], [address] Nucleated RBC (Bld) [#/Vol] 0 10*3/uL Normal 0-5 [facility] Comment on above: Performed By: #### L 500.4050, L501.2450, L100.0100 #### [facility] [address] [place], [address] Platelet mean volume (Bld) [Entitic vol] 10.1 fL Normal 6.2-12.0 [facility] Comment on above: Performed By: #### L 500.4050, L501.2450, L100.0100 #### [facility] [address] [place], [address] Platelets (Bld) [#/Vol] 234 10*3/uL Normal 150-450 [facility] Comment on above: Performed By: #### L 500.4050, L501.2450, L100.0100 #### [facility] [address] [place], [address] RBC (Bld) [#/Vol] 4.17 10*6/uL Low 4.2-5.4 [facility] Comment on above: Performed By: #### L 500.4050, L501.2450, L100.0100 #### [facility] [address] [place], [address] RDW SD 41.4 fl Normal 35.1-43.9 [facility] Comment on above: Performed By: #### L 500.4050, L501.2450, L100.0100 #### [facility] [address] [place], [address] WBC (Bld) [#/Vol] 8.2 10*3/uL Normal 4.4-11.0 [facility] Comment on above: Performed By: #### L 500.4050, L501.2450, L100.0100 #### [facility] [address] [place], [address] Comprehensive Metabolic [facility] ilon 06-13-2024 Albumin [Mass/Vol] 3.6 g/dL Normal 3.2-5.0 [facility] Comment on above: Performed By: #### L 500.4050, L501.2450, L100.0100 #### [facility] [address] [place], [address] Albumin/Globulin [Mass ratio] 0.9 {ratio} Normal 0.9-2.4 [facility] Comment on above: Performed By: #### L 500.4050, L501.2450, L100.0100 #### [facility] [address] [place], [address] ALK P 119 U/L High 45-117 [facility] Comment on above: Performed By: #### L 500.4050, L501.2450, L100.0100 #### [facility] [address] [place], [address] ALT [Catalytic activity/Vol] 23 U/L Normal 13-56 [facility] Comment on above: Performed By: #### L 500.4050, L501.2450, L100.0100 #### [facility] [address] [place], [address] AST [Catalytic activity/Vol] 16 U/L Normal 15-37 [facility] Comment on above: Performed By: #### L 500.4050, L501.2450, L100.0100 #### [facility] [address] [place], [address] Bilirubin [Mass/Vol] 0.60 mg/dL Normal 0.20-1.00 [facility] Comment on above: Result Comment: For patients on eltrombopag therapy, use of Dimension Lutz TBIL is not recommended. Performed By: #### L 500.4050, L501.2450, L100.0100 #### [facility] [address] [place], [address] BUN/CRE 11.3 RATIO Normal 10-20 [facility] Comment on above: Performed By: #### L 500.4050, L501.2450, L100.0100 #### [facility] [address] [place], [address] CA,Total 9.0 mg/dL Normal 8.5-10.1 [facility] Comment on above: Performed By: #### L 500.4050, L501.2450, L100.0100 #### [facility] [address] [place], [address] Chloride [Moles/Vol] 104 mmol/L Normal 98-107 [facility] Comment on above: Performed By: #### L 500.4050, L501.2450, L100.0100 #### [facility] [address] [place], [address] CO2 [Moles/Vol] 28.0 mmol/L Normal 21.0-32.0 [facility] Comment on above: Performed By: #### L 500.4050, L501.2450, L100.0100 #### [facility] [address] [place], [address] Creatinine [Mass/Vol] 1.15 mg/dL High 0.55-1.02 [facility] Comment on above: Result Comment: The validity of the calculated GFR GFRAA in patients over 70 years has not been determined. Clinical correlation is essential. Performed By: #### L 500.4050, L501.2450, L100.0100 #### [facility] [address] [place], [address] ECRCL 62.95 ml/min Normal [facility] Comment on above: Performed By: #### L 500.4050, L501.2450, L100.0100 #### [facility] [address] [place], [address] EST GFR - AA 66 mL/min Normal >60 [facility] Comment on above: Result Comment: Afri can Samoan GFR Calc Performed By: #### L 500.4050, L501.2450, L100.0100 #### [facility] [address] [place], [address] GAP 5 Normal 5-15 [facility] Comment on above: Performed By: #### L 500.4050, L501.2450, L100.0100 #### [facility] [address] [place], [address] GFR/1.73 sq M.predicted among non-blacks MDRD (S/P/Bld) [Vol rate/Area] 54 mL/min/{1.73_m2} Low >60 [facility] Comment on above: Result Comment: Non- GFR Calc Performed By: #### L 500.4050, L501.2450, L100.0100 #### [facility] [address] [place], [address] Globulin (S) [Mass/Vol] 3.8 g/dL Normal 2.2-4.2 [facility] Comment on above: Performed By: #### L 500.4050, L501.2450, L100.0100 #### [facility] [address] [place], [address] Glucose [Mass/Vol] 104 mg/dL Normal 74-106 [facility] Comment on above: Result Comment: Fast ing Glucose result from 100 to 125 mg/dL suggests IMPAIRED HOMEOSTASIS per A.D.A. criteria. Performed By: #### L 500.4050, L501.2450, L100.0100 #### [facility] [address] [place], [address] Potassium [Moles/Vol] 3.7 mmol/L Normal 3.5-5.1 [facility] Comment on above: Performed By: #### L 500.4050, L501.2450, L100.0100 #### [facility] [address] [place], [address] Sodium [Moles/Vol] 137 mmol/L Normal 136-145 [facility] Comment on above: Performed By: #### L 500.4050, L501.2450, L100.0100 #### [facility] [address] [place], [address] T PROT 7.4 g/dL Normal 6.4-8.2 [facility] Comment on above: Performed By: #### L 500.4050, L501.2450, L100.0100 #### [facility] [address] [place], [address] Urea nitrogen [Mass/Vol] 13 mg/dL Normal 7-18 [facility] Comment on above: Performed By: #### L 500.4050, L501.2450, L100.0100 #### [facility] [address] [place], [address] Emergency Department Summary on 06-13-2024 Emergency Department Summary [facility] Medical Records Department [address] [place] [address] Emergency Department Summary 06/13/24 MR#: [id number] Acct: [id number] Name: SALLY VARGAS Rep #: [id number] : 1980 43 From: Leonardo Farr DO PCP: Dr. Silverio Haley MD Status:DEP ER Location: ED HPI History of Present Illness Chief Complaint: Abd Pain Narrative Narrative: Chief complaint and HPI: Abdominal pain. 43-year-old female presents for evaluation of abdominal pain. Patient has a history of chronic pancreatitis. Follows with Dr. Rose. Patient states her epigastric abdominal pain started 2 days ago and has progressively worsened. She states it feels like her previous pancreatitis. She was just seen in our emergency department earlier this month for similar symptoms. Patient endorses nausea and vomiting. She states she had decreased urination yesterday. Decreased p.o. intake. She denies any fever, chills, chest pain, shortness of breath, URI symptoms, diarrhea, constipation, dysuria, hematuria. Patient has had a total hysterectomy. Review of systems: See HPI Medications: As listed on the chart Allergies: As listed on the chart PFSH: Per chart Vital signs: As listed on the chart. Reviewed. Physical exam: Gen: A O x3, NAD Head: Normocephalic, atraumatic Eyes: No sclera icterus, conjunctiva clear ENT: Moist mucous membranes Neck: Trachea midline, No JVD CV: RRR, no murmurs, no peripheral edema Resp: Lungs CTA BL, no w/r/c GI: Abd soft, non-distended, tender to palpation in the epigastrium, no rebound or rigidity : No CVA tenderness Musc: Full ROM, no deformity Skin: Warm, dry Neuro: Alert, oriented, grossly intact, sensation intact Psych: Cooperative, appropriate mood and affect [facility] Medical History Cancer Depression Rheumatoid [...] hydronephrosis History of renal calculi Home Medications ???Medication ???Instructions ???Recorded ???Last Taken ???Type gabapentin 400 mg capsule 400 mg PO TID PRN NEUROPATHY 10/03/20 12/02/23 History aripiprazole 10 mg tablet 10 mg PO DAILY DEPRESSION 10/25/23 12/02/23 History lorazepam 0.5 mg tablet 0.5 mg PO DAILY PRN ANXIETY #7 01/26/24 Unknown Rx tabs mesalamine 1.2 gram tablet,delayed 2.4 g (2 x 1.2 gram) PO DAILY 30 02/09/24 Unknown Rx release days #60 tabs trazodone 50 mg tablet 50 mg PO QHS 02/23/24 Unknown History hyoscyamine sulfate 0.125 mg 0.125 mg PO Q6H PRN abdominal 02/24/24 Unknown Rx disintegrating tablet discomfort #10 tabs diphenhydramine HCl 25 mg capsule 25 mg PO QHS 05/25/24 Unknown History (Allergy (diphenhydramine)) escitalopram oxalate 20 mg tablet 20 mg PO DAILY 05/25/24 Unknown History pantoprazole 40 mg tablet,delayed 40 mg PO DAILY 05/25/24 Unknown History release promethazine 25 mg tablet 25 mg PO Q8H PRN PRN 05/25/24 Unknown History nausea/vomiting ciprofloxacin HCl 500 mg tablet 500 mg PO BID 5 days #10 TABLETS 06/13/24 Unknown Rx Allergy/AdvReac Type Severity Reaction Status Date / Time Iodinated Contrast Media (CT) Allergy Anaphylaxis Verified 06/13/24 15:07 ketorolac tromethamine (From Allergy Rash Verified 06/13/24 15:07 Toradol) metronidazole (From Flagyl) Allergy Hives Verified 06/13/24 15:07 Penicillins Allergy Hives Verified 06/13/24 15:07 dicyclomine (From Bentyl) AdvReac Mild Hives Verified 06/13/24 15:07 aspirin AdvReac Upset Verified 06/13/24 15:07 Stomach Family History Aunt Breast cancer Grandfather [...] current substance use type: does not use EXAM Physical Exam Const Vital Signs: 06/13/24 15:05 06/13 (more content not included)... Normal [facility] Lipaseon 06-13-2024 Lipase [Catalytic activity/Vol] 32 U/L Normal 13-75 [facility] Comment on above: Result Comment: Jay mortensen note: LIPASE revised reference range effective 22. New Lipase methodology. Expected to produce lower values than the previous assay method. NEW Reference Range: 13 - 75 U/L Performed By: #### L 500.4050, L501.2450, L100.0100 #### [facility] [address] [place], [address] Urinalysis, Completeon 06-13 BACTERIA 3+ /hpf Normal None Seen [facility] Comment on above: Order Comment: CLEAN CATCH Performed By: #### M 100.678, L400.0001 #### [facility] [address] [place], [address] CA OX CRYSTAL RARE Normal [facility] Comment on above: Order Comment: CLEAN CATCH Performed By: #### M 100.678, L400.0001 #### [facility] [address] [place], [address] EPI,SQUAMOUS 25-50 SEEN Normal 5-10 [facility] Comment on above: Order Comment: CLEAN CATCH Performed By: #### M 100.678, L400.0001 #### [facility] [address] [place], [address] Mucus Ql (Urine sed) 3+ /hpf Normal [facility] Comment on above: Order Comment: CLEAN CATCH Performed By: #### M 100.678, L400.0001 #### [facility] [address] [place], [address] RBC 0-5 SEEN Normal 0-5 [facility] Comment on above: Order Comment: CLEAN CATCH Performed By: #### M 100.678, L400.0001 #### [facility] [address] [place], [address] WBC 0-5 SEEN Normal 0-5 [facility] Comment on above: Order Comment: CLEAN CATCH Performed By: #### M 100.678, L400.0001 #### [facility] [address] [place], [address] CNOVon 06-10-2024 CNOV Office Visit (INTMWS ) -------- SALLY VARGAS ([id number]) 1980 F Date Time Provider Department 06/10/24 10:40 AM SILVERIO HALEY INTMWS During your visit today, we recorded the following information about you: Temperature Pulse Respiration Blood pressure 96.1 degrees 63/minute 16/minute 114/72 Weight 91.1 kg Silverio Haley MD 06/10/2024 12:10 PM Signed This note was created using [employer]ot[employer]. Subjective Sally Vargas is a 43 year [...] Benign liver cyst 05/24/2010 CT scan at [facility] 11/2009 and 04/2010 showe 4 mm increase in size. No pain. No elevated LFTs on 03/11/2010. Calculus of kidney 05/17/[address] Nicolas: Hospitalized age 20, and again later -- no procedures so far ([facility] [place] [facility]) Cancer (HCC) COVID-19 virus infection 10/07/202109/2021 Diverticulosis [...] every 8 hours as needed for nausea/vomiting. arjlyd-yulmgnjq-bmobpxi (CREON 3) 3,000-9,500- 15,000 unit delayed release [...] 03/11/2024) Chol (more content not included)... [facility] Telephone (INTMWS) -------- SALLY VARGSA ([id number]) 1980 F Date Time Provider Department 06/10/24 SILVERIO HALEY During your visit today, we recorded the following information about you: Brittnee Barraza LPN 06/10/2024 12:19 PM Signed Printed order for ankle brace was not given to patient before she left [facility]. Left message on answering machine as to whether to take Order to medical records for her to pickers material handlers, or mail it to her. DAVID Torrez Krystle, RN 06/10/2024 12:29 PM Signed Patient returns call and reports that she will pickers material handlers order for ankle brace in medical records. VIN Hood Sue E, LPN 06/10/2024 4:24 PM Signed Ready to [...] 8 hours as needed for nausea/vomiting. - yzpcog-tlcumtgf-kevtwhp (CREON 3) 3,000-9,500- 15,000 unit delayed release [...] pain [G89.18] (more content not included)... Normal [facility] CBC + DIFFon 09-26-2024 Baso # 0.02 x10EE3/UL Normal 0.00 - 0.10 [facility] Comment on above: Performed By: #### 2 42529 ####[facility],[address] [place], [place] [id number] Basophils/100 WBC (Bld) 0.2 % Normal 0.0 - 2.0 [facility] Comment on above: Performed By: #### 2 44355 ####[facility],[address] [place] [address] CBC + DIFF Normal [facility] Comment on above: Result Comment: CBC- COMPLETE BLOOD COUNT Performed By: #### 2 14805 ####[facility],[address] [place] [address] EO # 0.27 x10EE3/UL Normal 0.00 - 0.50 [facility] Comment on above: Performed By: #### 2 07717 ####[facility],[address] [place] [address] Eosinophils/100 WBC (Bld) 3.1 % Normal 0.0 - 7.0 [facility] Comment on above: Performed By: #### 2 58026 ####[facility],[address] [place] [address] Erythrocyte distribution width (RBC) [Ratio] 13.3 % Normal 12.0 - 15.6 [facility] Comment on above: Performed By: #### 2 43591 ####[facility],[address] [place] [address] Hematocrit (Bld) [Volume fraction] 40.9 % Normal 34.0 - 46.0 [facility] Comment on above: Performed By: #### 2 72178 ####[facility],[address] [place] [address] Hemoglobin (Bld) [Mass/Vol] 14.0 g/dL Normal 12.0 - 16.0 [facility] Comment on above: Performed By: #### 2 43053 ####[facility],[address] [place] [address] Lymph # 2.49 x10EE3/UL Normal 0.80 - 2.80 [facility] Comment on above: Performed By: #### 2 28582 ####[facility],[address] [place] [address] Lymphocytes/100 WBC (Bld) 29.1 % Normal 20.0 - 45.0 [facility] Comment on above: Performed By: #### 2 95722 ####[facility],[address] [place] [address] MANUAL DIFF N/A Normal [facility] Comment on above: Performed By: #### 2 11834 ####[facility],[address] [place] [address] MCH (RBC) [Entitic mass] 31 pg Normal 27 - 33 [facility] Comment on above: Performed By: #### 2 43601 ####[facility],[address] [place] [address] MCHC 34 X10 3 Normal 32 - 36 [facility] Comment on above: Performed By: #### 2 19246 ####[facility],[address] [place], [place] [id number] MCV (RBC) [Entitic vol] 89 fL Normal 80 - 99 [facility] [place] [facility] Comment on above: Performed By: #### 2 77882 ####[facility],[address] [place] [address] 87592 Bacon # 0.47 x10EE3/UL Normal 0.20 - 1.00 [facility] Comment on above: Performed By: #### 2 74416 ####[facility],[address] [place], [place] [id number] MONOS % 5.5 % Normal 0.0 - 10.0 [facility] Comment on above: Performed By: #### 2 21010 ####[facility],[address] [place] [address] Morphology Adrian (Bld) [Interp] N/A Normal [facility] Comment on above: Performed By: #### 2 48846 ####[facility],[address] [place], [place] [id number] Neut # 5.33 x10EE3/UL Normal 1.50 - 7.10 [facility] Comment on above: Performed By: #### 2 36620 ####[facility],[address] [place] [address] Neutrophils/100 WBC (Bld) 62.1 % Normal 46.0 - 76.0 [facility] Comment on above: Performed By: #### 2 63692 ####[facility],[address] [place] [address] PLATELET 253 x10EE3/UL Normal 150 - 450 [facility] Comment on above: Performed By: #### 2 34675 ####[facility],[address] [place] [address] Platelet mean volume (Bld) [Entitic vol] 8.2 fL Normal 6.6 - 10.5 [facility] Comment on above: Result Comment: AUTO MATED DIFFERENTIAL Performed By: #### 2 09232 ####[facility],[address] [place], [place] [id number] RBC 4.59 x 10EE6/UL Normal 4.10 - 5.30 [facility] Comment on above: Performed By: #### 2 20076 ####[facility],[address] [place], [place] [id number] WBC 8.6 x 10EE3/UL Normal 4.5 - 10.8 [facility] Comment on above: Performed By: #### 2 97756 ####[facility],[address] [place], [place] [id number] CMP with eGFRon 06-09-2024 AGE 43 years Normal [facility] Comment on above: Performed By: #### 2 68570 ####[facility],[address] [place] [address] 50633 Albumin [Mass/Vol] 3.9 g/dL Normal 3.4 - 5.0 [facility] Comment on above: Performed By: #### 2 47122 ####[facility],[address] [place] [address] 97626 Albumin/Globulin [Mass ratio] 1.1 {ratio} Normal 0.9 - 1.6 [facility] Comment on above: Performed By: #### 2 20707 ####[facility],[address] [place] [address] 05690 ALK PHOS 140 U/L High 46 - 116 [facility] Comment on above: Performed By: #### 2 60381 ####[facility],[address] [place] [address] 39159 ALT [Catalytic activity/Vol] 25 U/L Normal 16 - 63 [facility] Comment on above: Performed By: #### 2 62642 ####[facility],[address] [place] [address] 18652 Anion gap [Moles/Vol] 12 mmol/L Normal 10 - 20 [facility] Comment on above: Performed By: #### 2 51981 ####[facility],[address] [place] [address] 91606 AST [Catalytic activity/Vol] 19 U/L Normal 13 - 39 [facility] Comment on above: Performed By: #### 2 02790 ####[facility],[address] [place] [address] 87524 B/C RATIO 15 ratio Normal 0 - 30 [facility] Comment on above: Performed By: #### 2 63769 ####[facility],[address] [place] [address] 83900 Bilirubin [Mass/Vol] 1.1 mg/dL High 0.2 - 1.0 [facility] Comment on above: Performed By: #### 2 04059 ####[facility],[address] [place] [address] 07824 Calcium [Mass/Vol] 9.1 mg/dL Normal 8.5 - 10.1 [facility] Comment on above: Performed By: #### 2 34616 ####[facility],[address] [place] [address] 63154 Chloride [Moles/Vol] 99 mmol/L Normal 98 - 107 [facility] Comment on above: Performed By: #### 2 98653 ####[facility],[address] [place] [address] 41428 CMP with eGFR Normal [facility] Comment on above: Result Comment: COMP REHENSIVE METABOLIC PANEL Performed By: #### 2 31809 ####[facility],[address] [place] [address] 61840 CO2 [Moles/Vol] 29.4 mmol/L Normal 21.0 - 32.0 [facility] Comment on above: Performed By: #### 2 87022 ####[facility],[address] [place] [address] 54687 Creatinine [Mass/Vol] 1.17 mg/dL High 0.55 - 1.02 [facility] Comment on above: Performed By: #### 2 05784 ####[facility],[address] [place] [address] 83289 eGFR 50 ML/MINUTE Low 60 - 999 [facility] Comment on above: Performed By: #### 2 51048 ####[facility],[address] [place] [address] 64634 GFR/1.73 sq M.predicted among non-blacks MDRD (S/P/Bld) [Vol rate/Area] mL/min/{1.73_m2} Normal 60 - 999 [facility] Comment on above: Result Comment: ACCO RDING TO THE NATIONAL KIDNEY DISEASE EDUCATION PROGRAM(NKDE), A NORMAL eGFRIS A VALUE GREATER THAN OR EQUAL TO 60 ML/MIN/1.73 SQ METERS.CHRONIC KIDNEY DISEASE: <60mL/MIN/1.73 SQ METERSKIDNEY FAILURE: <15mL/MIN/1.73 SQ METERSTHIS TEST SHOULD ONLY BE USED FOR PATIENTS 18 YEARS OF AGE AND OLDER. Performed By: #### 2 55767 ####[facility],[address] [place] [address] 63723 Globulin (S) [Mass/Vol] 3.7 g/dL Normal 1.5 - 3.8 [facility] Comment on above: Performed By: #### 2 72314 ####[facility],[address] [place] [address] 10557 Glucose [Mass/Vol] 106 mg/dL Normal 74 - 106 [facility] Comment on above: Performed By: #### 2 43420 ####[facility],[address] [place] [address] 50872 Potassium [Moles/Vol] 3.6 mmol/L Normal 3.5 - 5.1 [facility] Comment on above: Performed By: #### 2 35314 ####[facility],[address] [place] [address] 51402 Protein [Mass/Vol] 7.6 g/dL Normal 6.4 - 8.2 [facility] Comment on above: Performed By: #### 2 06832 ####[facility],[address] [place] [address] 22962 Sodium [Moles/Vol] 137 mmol/L Normal 136 - 145 [facility] Comment on above: Performed By: #### 2 07596 ####[facility],[address] [place] [address] 36088 Urea nitrogen [Mass/Vol] 17 mg/dL Normal 7 - 18 [facility] Comment on above: Performed By: #### 2 72877 ####[facility],[address] [place] [address] KUB (KIDNEY STONE PROTOCO L)on 06-09-2024 CT KUB (KIDNEY STONE PROTOCOL) Normal [facility] PREG SERUM QUANTon HCG QUANTITATIVE 6 mIU/mL Normal 0 - 6 [facility] Comment on above: Result Comment: Refe [...] 3RD TRIMESTER 1000-50,000 Performed By: #### 2 58672 ####[facility],[address] [place] [address] SERUM QUALon 06-09 EXTERNAL QC DONE? YES Normal [facility] Comment on above: Performed By: #### 2 94302 ####[facility],[address] [place] [address] INTERNAL QC PASS Normal [facility] Comment on above: Performed By: #### 2 05960 ####[facility],[address] [place] [address] SER Positive Normal NEGATIVE [facility] Comment on above: Performed By: #### 2 78094 ####[facility],[address] [place] [address] URINALYSISon 06-09-2024 Bilirubin Ql (U) Negative Normal NORMAL: NEGATIVE [facility] Comment on above: Performed By: #### 2 92702 ####[facility],[address] [place] [address] Clarity (U) clear Normal NORMAL: CLEAR [facility] Comment on above: Performed By: #### 2 69066 ####[facility],[address] [place] [address] Color (U) yellow Normal NORMAL: YELLOW [facility] Comment on above: Performed By: #### 2 70522 ####[facility],[address] [place] [address] 51943 Glucose Ql (U) NORM Normal NORMAL: NORMAL [facility] Comment on above: Performed By: #### 2 87421 ####[facility],[address] [place] [address] 46349 Hemoglobin Ql (U) Negative Normal NORMAL: NEGATIVE [facility] Comment on above: Performed By: #### 2 90002 ####[facility],[address] [place] [address] 24688 Ketone Negative Normal NORMAL: NEGATIVE [facility] Comment on above: Performed By: #### 2 05802 ####[facility],[address] [place] [address] 67436 Leukocytes Negative Normal NORMAL: NEGATIVE [facility] Comment on above: Performed By: #### 2 08346 ####[facility],[address] [place] [address] 78134 Nitrite Ql (U) Negative Normal NORMAL: NEGATIVE [facility] Comment on above: Performed By: #### 2 12870 ####[facility],[address] [place] [address] 25350 pH (U) 6 [pH] Normal NORMAL: 5.0-8.0 [facility] Comment on above: Performed By: #### 2 68896 ####[facility],[address] [place] [address] 92159 Protein Ql (U) Negative Normal NORMAL: NEGATIVE [facility] Comment on above: Performed By: #### 2 12375 ####[facility],[address] [place] [address] 07327 Sp [place] 1.020 Normal NORMAL: 1.010-1.030 [facility] Comment on above: Performed By: #### 2 38786 ####[facility],[address] [place] [address] 37936 Specimen Type R Normal [facility] Comment on above: Performed By: #### 2 67847 ####[facility],[address] [place], [place] [phone] Urinalysis dipstick W Reflex Microscopic panel (U) NOT INDICATED Normal [facility] Comment on above: Performed By: #### 2 70981 ####[facility],[address] [place] [address] 78920 Urobilinog NORM Normal NORMAL: NORMAL [facility] Comment on above: Performed By: #### 2 37809 ####[facility],[address] [place] [address] C-REACTIVE PROTEINon 024 CRP 0.94 mg/dl High 0.00 - 0.90 [facility] Comment on above: Performed By: #### 2 33774 ####[facility],[address] [place] [address] CBC + DIFFon 06-02-2024 Baso # 0.02 x10EE3/UL Normal 0.00 - 0.10 [facility] Comment on above: Performed By: #### 2 97989 ####[facility],[address] [place] [address] 15988 Basophils/100 WBC (Bld) 0.3 % Normal 0.0 - 2.0 [facility] Comment on above: Performed By: #### 2 38309 ####[facility],[address] [place] [address] CBC + DIFF Normal [facility] Comment on above: Result Comment: CBC- COMPLETE BLOOD COUNT Performed By: #### 2 28051 ####[facility],[address] [place] [address] 09333 EO # 0.19 x10EE3/UL Normal 0.00 - 0.50 [facility] Comment on above: Performed By: #### 2 17532 ####[facility],[address] [place] [address] 43233 Eosinophils/100 WBC (Bld) 2.9 % Normal 0.0 - 7.0 [facility] Comment on above: Performed By: #### 2 57233 ####[facility],[address] [place] [address] Erythrocyte distribution width (RBC) [Ratio] 12.8 % Normal 12.0 - 15.6 [facility] Comment on above: Performed By: #### 2 01310 ####[facility],[address] [place] [address] Hematocrit (Bld) [Volume fraction] 39.4 % Normal 34.0 - 46.0 [facility] Comment on above: Performed By: #### 2 91302 ####[facility],[address] [place] [address] Hemoglobin (Bld) [Mass/Vol] 13.3 g/dL Normal 12.0 - 16.0 [facility] Comment on above: Performed By: #### 2 91914 ####[facility],[address] [place] [address] Lymph # 2.10 x10EE3/UL Normal 0.80 - 2.80 [facility] Comment on above: Performed By: #### 2 44399 ####[facility],[address] [place] [address] Lymphocytes/100 WBC (Bld) 31.0 % Normal 20.0 - 45.0 [facility] Comment on above: Performed By: #### 2 30488 ####[facility],[address] [place], [place] [id number] MANUAL DIFF N/A Normal [facility] Comment on above: Performed By: #### 2 59962 ####[facility],[address] [place] [address] MCH (RBC) [Entitic mass] 30 pg Normal 27 - 33 [facility] Comment on above: Performed By: #### 2 47116 ####[facility],[address] [place] [address] MCHC 34 X10 3 Normal 32 - 36 [facility] Comment on above: Performed By: #### 2 62291 ####[place] [address] MCV (RBC) [Entitic vol] 90 fL Normal 80 - 99 [facility] [place] [facility] Comment on above: Performed By: #### 2 23889 ####[facility],[address] [place] [address] Bacon # 0.38 x10EE3/UL Normal 0.20 - 1.00 [facility] Comment on above: Performed By: #### 2 00624 ####[place] [address] MONOS % 5.7 % Normal 0.0 - 10.0 [facility] Comment on above: Performed By: #### 2 05115 ####[place] [address] Morphology Adrian (Bld) [Interp] N/A Normal [facility] Comment on above: Performed By: #### 2 94071 ####[place] [address] Neut # 4.07 x10EE3/UL Normal 1.50 - 7.10 [facility] Comment on above: Performed By: #### 2 23556 ####[place] [address] Neutrophils/100 WBC (Bld) 60.2 % Normal 46.0 - 76.0 [facility] Comment on above: Performed By: #### 2 46796 ####[place] [address] PLATELET 257 x10EE3/UL Normal 150 - 450 [facility] Comment on above: Performed By: #### 2 35237 ####[place] [address] Platelet mean volume (Bld) [Entitic vol] 9.4 fL Normal 6.6 - 10.5 [facility] Comment on above: Result Comment: AUTO MATED DIFFERENTIAL Performed By: #### 2 06135 ####[facility],[address] [place] [address] 69952 RBC 4.38 x 10EE6/UL Normal 4.10 - 5.30 [facility] Comment on above: Performed By: #### 2 77371 ####[facility],[address] [place] [address] 63745 WBC 6.8 x 10EE3/UL Normal 4.5 - 10.8 [facility] Comment on above: Performed By: #### 2 51831 ####[facility],[address] [place] [address] 17579 CMP with eGFRon 06-02-2024 AGE 43 years Normal [facility] Comment on above: Performed By: #### 2 72904 ####[facility],[address] [place] [address] 46589 Albumin [Mass/Vol] 3.8 g/dL Normal 3.4 - 5.0 [facility] Comment on above: Performed By: #### 2 65516 ####[facility],[address] [place] [address] 95095 Albumin/Globulin [Mass ratio] 1.1 {ratio} Normal 0.9 - 1.6 [facility] Comment on above: Performed By: #### 2 88195 ####[facility],[address] [place] [address] 12984 ALK PHOS 137 U/L High 46 - 116 [facility] Comment on above: Performed By: #### 2 94332 ####[facility],[address] [place] [address] 91994 ALT [Catalytic activity/Vol] 27 U/L Normal 16 - 63 [facility] Comment on above: Performed By: #### 2 88606 ####[facility],[address] [place] [address] 17489 Anion gap [Moles/Vol] 14 mmol/L Normal 10 - 20 [facility] Comment on above: Performed By: #### 2 97092 ####[facility],[address] [place] [address] 12272 AST [Catalytic activity/Vol] 19 U/L Normal 13 - 39 [facility] Comment on above: Performed By: #### 2 90809 ####[facility],[address] [place] [address] 30391 B/C RATIO 8 ratio Normal 0 - 30 [facility] Comment on above: Performed By: #### 2 24254 ####[facility],[address] [place] [address] 83189 Bilirubin [Mass/Vol] 0.9 mg/dL Normal 0.2 - 1.0 [facility] Comment on above: Performed By: #### 2 38076 ####[facility],[address] [place] [address] 13627 Calcium [Mass/Vol] 8.9 mg/dL Normal 8.5 - 10.1 [facility] Comment on above: Performed By: #### 2 69626 ####[facility],[address] [place] [address] 91112 Chloride [Moles/Vol] 102 mmol/L Normal 98 - 107 [facility] Comment on above: Performed By: #### 2 10971 ####[facility],[address] [place] [address] 08355 CMP with eGFR Normal [facility] Comment on above: Result Comment: COMP REHENSIVE METABOLIC PANEL Performed By: #### 2 70053 ####[facility],[address] [place] [address] 95889 CO2 [Moles/Vol] 26.9 mmol/L Normal 21.0 - 32.0 [facility] Comment on above: Performed By: #### 2 46218 ####[facility],[address] [place] [address] 25271 Creatinine [Mass/Vol] 0.95 mg/dL Normal 0.55 - 1.02 [facility] Comment on above: Performed By: #### 2 73087 ####[facility],[address] [place] [address] 93057 GFR/1.73 sq M.predicted among non-blacks MDRD (S/P/Bld) [Vol rate/Area] mL/min/{1.73_m2} Normal 60 - 999 [facility] Comment on above: Performed By: #### 2 67160 ####[facility],[address] [place], [place] [id number] Result Comment: ACCO RDING TO THE NATIONAL KIDNEY DISEASE EDUCATION PROGRAM(NKDE), A NORMAL eGFRIS A VALUE GREATER THAN OR EQUAL TO 60 ML/MIN/1.73 SQ METERS.CHRONIC KIDNEY DISEASE: <60mL/MIN/1.73 SQ METERSKIDNEY FAILURE: <15mL/MIN/1.73 SQ METERSTHIS TEST SHOULD ONLY BE USED FOR PATIENTS 18 YEARS OF AGE AND OLDER. Globulin (S) [Mass/Vol] 3.6 g/dL Normal 1.5 - 3.8 [facility] Comment on above: Performed By: #### 2 34349 ####[facility],[address] [place] [address] 27560 Glucose [Mass/Vol] 109 mg/dL High 74 - 106 [facility] Comment on above: Performed By: #### 2 77633 ####[facility],[address] [place] [address] 26530 Potassium [Moles/Vol] 3.9 mmol/L Normal 3.5 - 5.1 [facility] Comment on above: Performed By: #### 2 03909 ####[facility],[address] [place] [address] 18098 Protein [Mass/Vol] 7.4 g/dL Normal 6.4 - 8.2 [facility] Comment on above: Performed By: #### 2 85710 ####[facility],[address] [place], [place] [phone] Sodium [Moles/Vol] 139 mmol/L Normal 136 - 145 [facility] Comment on above: Performed By: #### 2 64309 ####[facility],[address] [place] [address] Urea nitrogen [Mass/Vol] 8 mg/dL Normal 7 - 18 [facility] Comment on above: Performed By: #### 2 04100 ####[facility],[address] [place] [address] CT ABDOMEN/PELVIS Won 2023 CT ABDOMEN/PELVIS W Normal [facility] LIPASEon 06-02-2024 Lipase [Catalytic activity/Vol] 36.0 U/L Normal 15.0 - 78.0 [facility] Comment on above: Result Comment: *PLE ASE NOTE THAT RANGES FOR LIPASE HAVE CHANGED OF 09/11/23 DUE TO AN ASSAYUPDATE BY THE SENIOR ACCOUNTING CLERK.THE NEW ASSAY RANGE IS 6-250 U/L, WITH A REFERENCERANGE OF 16-77 U/L. Performed By: #### 2 27973 ####[facility],[address] [place] [address] TROPONIN I, HIGH SENSITIVITY on 06-02-2024 HS TROPONIN <4.0 Normal 0.0 - 51.4 [facility] Comment on above: Performed By: #### 2 58486 ####[facility],[address] [place] [address] 55260 URINALYSISon 06-02-2024 Amorphous NONE Normal [facility] Comment on above: Performed By: #### 2 85590 ####[facility],[address] [place] [id number] Bacteria TRACE Normal [facility] Comment on above: Performed By: #### 2 08858 ####[facility],[address] [place], [place] [id number] Bilirubin Ql (U) Negative Normal NORMAL: NEGATIVE [facility] Comment on above: Performed By: #### 2 05029 ####[facility],[address] [place] [address] 90516 Casts NONE Normal [facility] Comment on above: Performed By: #### 2 00119 ####[facility],[address] [place] [address] 20844 Clarity (U) clear Normal NORMAL: CLEAR [facility] Comment on above: Performed By: #### 2 64974 ####[facility],[address] [place] [address] 34135 Color (U) yellow Normal NORMAL: YELLOW [facility] Comment on above: Performed By: #### 2 52196 ####[facility],[address] [place] [address] 38068 Crystals LM Nom (Urine sed) NONE Normal [facility] Comment on above: Performed By: #### 2 76064 ####[facility],[address] [place] [address] 05985 Epi Cells FEW Normal [facility] Comment on above: Performed By: #### 2 79579 ####[facility],[address] [place] [address] 10223 Glucose Ql (U) NORM Normal NORMAL: NORMAL [facility] Comment on above: Performed By: #### 2 15464 ####[facility],[address] [place] [address] 00286 Hemoglobin Ql (U) 10 Abnormal NORMAL: NEGATIVE [facility] Comment on above: Performed By: #### 2 52783 ####[facility],[address] [place] [address] 78441 Ketone Negative Normal NORMAL: NEGATIVE [facility] Comment on above: Performed By: #### 2 01177 ####[facility],[address] [place] [address] 31882 Leukocytes 100 Abnormal NORMAL: NEGATIVE [facility] Comment on above: Performed By: #### 2 43702 ####[facility],[address] [place] [address] Mucous 2+ Normal [facility] Comment on above: Performed By: #### 2 66811 ####[facility],[address] [place], [place] [id number] Nitrite Ql (U) Negative Normal NORMAL: NEGATIVE [facility] Comment on above: Performed By: #### 2 59194 ####[facility],[address] [place] [address] pH (U) 6 [pH] Normal NORMAL: 5.0-8.0 [facility] Comment on above: Performed By: #### 2 53632 ####[facility],[address] [place] [address] Protein Ql (U) Negative Normal NORMAL: NEGATIVE [facility] Comment on above: Performed By: #### 2 99360 ####[facility],[address] [place] [address] Rbc 0-5 Normal 0-3/hpf [facility] Comment on above: Performed By: #### 2 81144 ####[facility],[address] [place] [address] Sp [place] 1.020 Normal NORMAL: 1.010-1.030 [facility] Comment on above: Performed By: #### 2 92754 ####[facility],[address] [place] [address] Specimen Type Void Normal [facility] Comment on above: Performed By: #### 2 30381 ####[facility],[address] [place] [address] Urinalysis dipstick W Reflex Microscopic panel (U) SEE BELOW Normal [facility] Comment on above: Result Comment: MICR OSCOPIC Performed By: #### 2 62543 ####[facility],[address] [place] [address] Urobilinog NORM Normal NORMAL: NORMAL [facility] Comment on above: Performed By: #### 2 63022 ####[facility],[address] [place] [address] 15425 Wbc 1-5 Normal 0-5/hpf [facility] Comment on above: Performed By: #### 2 17305 ####[facility],[address] [place] [address] 82704 Yeast 1+ Normal [facility] Comment on above: Performed By: #### 2 26993 ####[facility],[address] [place] [address] 78034 Abdomen/Pelvis without Conto n 05-28-2024 Abdomen/Pelvis without Cont [facility] Imaging Services [address] [place] [address] 12589 Abdomen/Pelvis without Cont MR#: [id number] Acct: [id number] Name: SALLY VARGAS Rep #: [id number] : 1980 F 43 From: Joe monzon DO PCP: Dr. Silverio Haley MD Status: REG ER Study: Abdomen/Pelvis without Cont Date of Exam: 05/15 01/05 Exam# [id number] Ordering Dr: Carson Ramos INORGANIC CHEMIST-C [id number] EXAM: CT ABDOMEN AND PELVIS WITHOUT INTRAVENOUS CONTRAST CLINICAL INDICATION: Pain TECHNIQUE: Helically acquired images were obtained of the abdomen and pelvis without intravenous contrast. This CT exam was performed using one or more of the following dose reduction techniques: automated exposure control, adjustment of the mA and/or kV according to patient size, and/or use of iterative reconstruction technique. COMPARISON: 02/24/2024 FINDINGS: LOWER THORAX: No significant abnormality. Lung bases are clear. No cardiomegaly. No significant pericardial effusion. ABDOMEN: LIVER: Multiple hepatic cysts are present for which no follow-up is indicated. GALLBLADDER AND BILE DUCTS: Status post cholecystectomy. No intra- or extrahepatic biliary ductal dilation. PANCREAS: No significant abnormality. No focal cystic mass. SPLEEN: No significant abnormality. Normal size without focal cystic or solid mass. ADRENALS: No significant abnormality. No nodules. KIDNEYS AND URETERS: Multiple nonobstructive left renal calyceal stones are present. No right-sided urolithiasis and no evidence of hydronephrosis. Normal renal size and position. STOMACH AND BOWEL: No significant abnormality. No stomach or bowel distention. No focal inflammatory change. PELVIS: APPENDIX: There is a normal appendix in the right lower quadrant. BLADDER: No significant abnormality. REPRODUCTIVE: Status post hysterectomy. ABDOMEN and PELVIS: INTRAPERITONEAL SPACE: No significant abnormality. No ascites or other fluid collection. No free air. BONES/JOINTS: Degenerative changes in the spine. No suspicious lytic or blastic abnormality. SOFT TISSUES: Fat-containing umbilical hernia. VASCULATURE: Trace atherosclerosis. Abdominal aorta is non-dilated. LYMPH NODES: No significant abnormality. No enlarged lymph nodes. CT/Abdomen/Pelvis without Cont IMPRESSION: 1. Multiple nonobstructive left renal calyceal stones are present. No right-sided urolithiasis and no evidence of hydronephrosis. 2. No evidence of acute pathology. Electronically Signed: Joe Zimmerman DO at 20:05 EDT , CC: SVETA Ramos; Dr. Silverio Haley MD [employer] Supervisor: Signed Normal [facility] Amylaseon 05-28-2024 SAGE 29 U/L Normal 25-115 [facility] Comment on above: Performed By: #### P H.PYLORI #### [facility] [address] [place], [place], [id number] CBC W/Diff, Automatedon 05-15 Absolute Lymph 3.28 X10 3/uL Normal 0.83-4.51 [facility] Comment on above: Performed By: #### P H.PYLORI #### [facility] [address] [place], [place], [id number] Absolute Neut 3.9 X10 3/uL Normal 2.0-7.7 [facility] Comment on above: Performed By: #### P H.PYLORI #### [facility] [address] [place], [address] Basophils/100 WBC (Bld) 0.4 % Normal 0-1 [facility] Comment on above: Performed By: #### P H.PYLORI #### [facility] [address] [place], [address] Eosinophils/100 WBC (Bld) 2.3 % Normal 0-5 [facility] Comment on above: Performed By: #### P H.PYLORI #### [facility] [address] [place], [address] Erythrocyte distribution width (RBC) [Ratio] 12.5 % Normal 11.6-14.6 [facility] Comment on above: Performed By: #### P H.PYLORI #### [facility] [address] [place], [address] Hematocrit (Bld) [Volume fraction] 37.7 % Normal 37-47 [facility] Comment on above: Performed By: #### P H.PYLORI #### [facility] [address] [place], [address] Hemoglobin (Bld) [Mass/Vol] 12.5 g/dL Normal 12.0-15.0 [facility] Comment on above: Performed By: #### P H.PYLORI #### [facility] [address] [place], [address] IG% 0.300 Normal 0.0-0.9 [facility] Comment on above: Result Comment: IG% - Immature Granulocytes (promyelocytes, myelocytes and metamyelocytes) > 1% indicates that a LEFT SHIFT is Present. Performed By: #### P H.PYLORI #### [facility] [address] [place], [address] Lymphocytes/100 WBC (Bld) 41.3 % High 19-41 [facility] Comment on above: Performed By: #### P H.PYLORI #### [facility] [address] [place], [address] MCH (RBC) [Entitic mass] 30.2 pg Normal 27.0-32.0 [facility] Comment on above: Performed By: #### P H.PYLORI #### [facility] [address] [place], [address] MCHC (RBC) [Mass/Vol] 33.2 g/dL Normal 32-36 [facility] Comment on above: Performed By: #### P H.PYLORI #### [facility] [address] [place], [address] MCV (RBC) [Entitic vol] 91.1 fL Normal 81-99 [facility] Comment on above: Performed By: #### P H.PYLORI #### [facility] [address] [place], [address] Monocytes/100 WBC (Bld) 7.2 % Normal 0-10 [facility] Comment on above: Performed By: #### P H.PYLORI #### [facility] [address] [place], [address] Neutrophils/100 WBC (Bld) 48.5 % Normal 47-70 [facility] Comment on above: Performed By: #### P H.PYLORI #### [facility] [address] [place], [address] Nucleated RBC (Bld) [#/Vol] 0 10*3/uL Normal 0-5 [facility] Comment on above: Performed By: #### P H.PYLORI #### [facility] [address] [place], [address] Platelet mean volume (Bld) [Entitic vol] 10.5 fL Normal 6.2-12.0 [facility] Comment on above: Performed By: #### P H.PYLORI #### [facility] [address] [place], [address] Platelets (Bld) [#/Vol] 226 10*3/uL Normal 150-450 [facility] Comment on above: Performed By: #### P H.PYLORI #### [facility] [address] [place], [address] RBC (Bld) [#/Vol] 4.14 10*6/uL Low 4.2-5.4 [facility] Comment on above: Performed By: #### P H.PYLORI #### [facility] [address] [place], [address] RDW SD 41.5 fl Normal 35.1-43.9 [facility] Comment on above: Performed By: #### P H.PYLORI #### [facility] [address] [place], [address] WBC (Bld) [#/Vol] 8.0 10*3/uL Normal 4.4-11.0 [facility] Comment on above: Performed By: #### P H.PYLORI #### [facility] [address] [place], [address] Comprehensive Metabolic Prof ilon 05-28-2024 Albumin [Mass/Vol] 3.8 g/dL Normal 3.2-5.0 [facility] Comment on above: Performed By: #### P H.PYLORI #### [facility] [address] [place], [address] Albumin/Globulin [Mass ratio] 1.0 {ratio} Normal 0.9-2.4 [facility] Comment on above: Performed By: #### P H.PYLORI #### [facility] [address] [place], [address] ALK P 116 U/L Normal 45-117 [facility] Comment on above: Performed By: #### P H.PYLORI #### [facility] [address] [place], [address] ALT [Catalytic activity/Vol] 27 U/L Normal 13-56 [facility] Comment on above: Performed By: #### P H.PYLORI #### [facility] [address] [place], [address] AST [Catalytic activity/Vol] 15 U/L Normal 15-37 [facility] Comment on above: Performed By: #### P H.PYLORI #### [facility] [address] [place], [address] Bilirubin [Mass/Vol] 0.60 mg/dL Normal 0.20-1.00 [facility] Comment on above: Result Comment: For patients on eltrombopag therapy, use of Dimension Lutz TBIL is not recommended. Performed By: #### P H.PYLORI #### [facility] [address] [place], [address] BUN/CRE 9.3 RATIO Low 10-20 [facility] Comment on above: Performed By: #### P H.PYLORI #### [facility] [address] [place], [address] CA,Total 9.2 mg/dL Normal 8.5-10.1 [facility] Comment on above: Performed By: #### P H.PYLORI #### [facility] [address] [place], [address] Chloride [Moles/Vol] 106 mmol/L Normal 98-107 [facility] Comment on above: Performed By: #### P H.PYLORI #### [facility] [address] [place], [address] CO2 [Moles/Vol] 25.0 mmol/L Normal 21.0-32.0 [facility] Comment on above: Performed By: #### P H.PYLORI #### [facility] [address] [place], [address] Creatinine [Mass/Vol] 1.07 mg/dL High 0.55-1.02 [facility] Comment on above: Result Comment: The validity of the calculated GFR GFRAA in patients over 70 years has not been determined. Clinical correlation is essential. Performed By: #### P H.PYLORI #### [facility] [address] [place], [address] ECRCL 69.82 ml/min Normal [facility] Comment on above: Performed By: #### P H.PYLORI #### [facility] [address] [place], [address] EST GFR - AA 71 mL/min Normal >60 [facility] Comment on above: Result Comment: Afri can Samoan GFR Calc Performed By: #### P H.PYLORI #### [facility] [address] [place], [address] GAP 8 Normal 5-15 [facility] Comment on above: Performed By: #### P H.PYLORI #### [facility] [address] [place], [address] GFR/1.73 sq M.predicted among non-blacks MDRD (S/P/Bld) [Vol rate/Area] 59 mL/min/{1.73_m2} Low >60 [facility] Comment on above: Result Comment: Non- GFR Calc Performed By: #### P H.PYLORI #### [facility] [address] [place], [address] Globulin (S) [Mass/Vol] 3.7 g/dL Normal 2.2-4.2 [facility] Comment on above: Performed By: #### P H.PYLORI #### [facility] [address] [place], [address] Glucose [Mass/Vol] 117 mg/dL High 74-106 [facility] Comment on above: Result Comment: Fast ing Glucose result from 100 to 125 mg/dL suggests IMPAIRED HOMEOSTASIS per A.D.A. criteria. Performed By: #### P H.PYLORI #### [facility] [address] [place], [address] Potassium [Moles/Vol] 3.4 mmol/L Low 3.5-5.1 [facility] Comment on above: Performed By: #### P H.PYLORI #### [facility] [address] [place], [address] Sodium [Moles/Vol] 139 mmol/L Normal 136-145 [facility] Comment on above: Performed By: #### P H.PYLORI #### [facility] [address] [place], [address] T PROT 7.5 g/dL Normal 6.4-8.2 [facility] Comment on above: Performed By: #### P H.PYLORI #### [facility] [address] [place], [address] Urea nitrogen [Mass/Vol] 10 mg/dL Normal 7-18 [facility] Comment on above: Performed By: #### P H.PYLORI #### [facility] [address] [place], [place], [address] Emergency Department Summary on 05-28-2024 Emergency Department Summary [facility] Medical Records Department [address] [place] [address] Emergency Department Summary 05/28/24 MR#: [id number] Acct: [id number] Name: SALLY VARGAS Rep #: [id number] : 1980 43 From: Tristen Adams MD PCP: Dr. Silverio Haley MD Status:DEP ER Location: ED HPI History of Present Illness Chief Complaint: Abd Pain Narrative Narrative: Patient is a 43-year-old female with history of chronic abdominal pain, anxiety, GERD who presents to the emergency department for abdominal pain. Patient is currently seeing Dr. Rose, she does have history of pancreatitis. Patient had a EGD as well as a colonoscopy yesterday, patient was given fentanyl, and she believes that this is the cause of her leg shaking and anxiety. Patient states she also had some abdominal pain today. She called Dr. Rose's office who they referred her to the emergency department. I did speak with Dr. Rose, he would like laboratory values including amylase lipase, as well as a CT scan. [facility] Medical History Cancer Depression Rheumatoid [...] hydronephrosis History of renal calculi Home Medications ???Medication ???Instructions ???Recorded ???Last Taken ???Type gabapentin 400 mg capsule 400 mg PO TID PRN NEUROPATHY 10/03/20 12/02/23 History aripiprazole 10 mg tablet 10 mg PO DAILY DEPRESSION 10/25/23 12/02/23 History lorazepam 0.5 mg tablet 0.5 mg PO DAILY PRN ANXIETY #7 01/26/24 Unknown Rx tabs mesalamine 1.2 gram tablet,delayed 2.4 g (2 x 1.2 gram) PO DAILY 30 02/09/24 Unknown Rx release days #60 tabs trazodone 50 mg tablet 50 mg PO QHS 02/23/24 Unknown History hyoscyamine sulfate 0.125 mg 0.125 mg PO Q6H PRN abdominal 02/24/24 Unknown Rx disintegrating tablet discomfort #10 tabs diphenhydramine HCl 25 mg capsule 25 mg PO QHS 05/25/24 Unknown History (Allergy (diphenhydramine)) escitalopram oxalate 20 mg tablet 20 mg PO DAILY 05/25/24 Unknown History pantoprazole 40 mg tablet,delayed 40 mg PO DAILY 05/25/24 Unknown History release promethazine 25 mg tablet 25 mg PO Q8H PRN PRN 05/25/24 Unknown History nausea/vomiting Allergy/AdvReac Type Severity Reaction Status Date / Time Iodinated Contrast Media (CT) Allergy Anaphylaxis Verified 05/28/24 19:01 ketorolac tromethamine (From Allergy Rash Verified 05/28/24 19:01 Toradol) metronidazole (From Flagyl) Allergy Hives Verified 05/28/24 19:01 Penicillins Allergy Hives Verified 05/27/24 13:33 dicyclomine (From Bentyl) AdvReac Mild Hives Verified 05/28/24 19:01 aspirin AdvReac Upset Verified 05/28/24 19:01 Stomach Family History Aunt Breast cancer Grandfather [...] use ROS ROS ED ROS Narrative Constitutional: Negative for fever, chills, weight loss, weakness Eyes: Negative for vision loss, vision change, double vision ENT: Negative for any sore throat, ear pain, congestion Cardiovascular: Negative for any chest pain, tightness, palpitations Respiratory: Negative for any cough, sputum production, hemoptysis, dyspnea, dyspnea on exertion, orthopnea Gastrointestinal: Negative for any vomiting, diarrhea, constipation, blood in stool, blood in vomit. Positive for abdominal, nausea : Negative for any urinary frequency, dysuria, retention, blood in urine Muscle skeletal: Negative for any neck pain, back pain Neurological: Negative for any headache, syncope, dizziness Skin: Negative for any rashes, itching, abrasions, lacerations Psychiatric: Negative for any depression, stress, suicidal ideation, homicidal ideation. Positive for anxiety Hematologic: N (more content not included)... Normal [facility] Lactic Acidon 05-28-2024 Lactate [Moles/Vol] 0.6 mmol/L Normal 0.4-1.9 [facility] Comment on above: Order Comment: Y Performed By: #### P H.PYLORI #### [facility] [address] [place], [address] Lipaseon 05-28-2024 Lipase [Catalytic activity/Vol] 54 U/L Normal 13-75 [facility] Comment on above: Result Comment: Jay mortensen note: LIPASE revised reference range effective 22. New Lipase methodology. Expected to produce lower values than the previous assay method. NEW Reference Range: 13 - 75 U/L Performed By: #### P H.PYLORI #### [facility] [address] [place], [address] Urinalysis, Completeon 05-28 EPI,SQUAMOUS 0-5 SEEN Normal 5-10 [facility] Comment on above: Order Comment: CLEAN CATCH Performed By: #### L 400.0001 #### [facility] [address] [place], [address] RBC 0-5 SEEN Normal 0-5 [facility] Comment on above: Order Comment: CLEAN CATCH Performed By: #### L 400.0001 #### [facility] [address] [place], [address] BACTERIA 0 SEEN Normal None Seen [facility] Comment on above: Order Comment: CLEAN CATCH Performed By: #### L 400.0001 #### [facility] [address] [place], [address] Mucus Ql (Urine sed) 0 SEEN Normal [facility] Comment on above: Order Comment: CLEAN CATCH Performed By: #### L 400.0001 #### [facility] [address] [place], [address] WBC 0 SEEN Normal 0-5 [facility] Comment on above: Order Comment: CLEAN CATCH Performed By: #### L 400.0001 #### [facility] [address] [place], [address] Colonoscopy Reporton 024 Colonoscopy Report [facility] Medical Records Department [address] [place] [address] Colonoscopy Report MR#: [id number] Acct: [id number] Name: SALLY VARGAS Rep #: [id number] : 1980 43 From: Blue Rose DO PCP: Dr. Silverio Haley MD Status:[facility] Patient Name: Sally Vargas Procedure Date: 05/27/2024 2:55 PM Date of : 1980 Age: 43 Procedure: Colonoscopy Indications: Generalized abdominal pain, Chronic diarrhea Providers: Blue Rose DO Referring MD: Silverio Haley Medicines: Monitored Anesthesia Care Patient Profile: This is a 43 year old female. Refer to note in patient chart for documentation of history and physical. Patient has symptoms of chronic abdominal cramping, acute epigastric abdominal pain, acute dyspepsia and acute throat burning. Last Colonoscopy: date unknown. Unable to locate last colonoscopy report. Complications: No immediate complications. Procedure: Pre-Anesthesia Assessment: - Prior to the procedure, a History and Physical was performed, and patient medications and allergies were reviewed. The patient is competent. The risks and benefits of the procedure and the sedation options and risks were discussed with the patient. All questions were answered and informed consent was obtained. Patient identification and proposed procedure were verified by the physician in the pre-procedure area. Mental Status Examination: alert and oriented. Airway Examination: normal oropharyngeal airway and neck mobility. Respiratory Examination: clear to auscultation. CV Examination: normal. Prophylactic Antibiotics: The patient does not require prophylactic antibiotics. Prior Anticoagulants: The patient has taken no anticoagulant or antiplatelet agents. ASA Grade Assessment: II - A patient with mild systemic disease. After reviewing the risks and benefits, the patient was deemed in satisfactory condition to undergo the procedure. The anesthesia plan was to use monitored anesthesia care (MAC). Immediately prior to administration of medications, the patient was re-assessed for adequacy to receive sedatives. The heart rate, respiratory rate, oxygen saturations, blood pressure, adequacy of pulmonary ventilation, and response to care were monitored throughout the procedure. The physical status of the patient was re-assessed after the procedure. After I obtained informed consent, the scope was passed under direct vision. Throughout the procedure, the patient's blood pressure, pulse, and oxygen saturations were monitored continuously. The Colonoscope was introduced through the anus and advanced to the terminal ileum. The colonoscopy was performed without difficulty. The patient tolerated the procedure well. The quality of the bowel preparation was adequate. The terminal ileum, ileocecal valve, appendiceal orifice, and rectum were photographed. Scope In: 2:57:12 PM Scope Withdrawal Time 0 hours 10 minutes 0 seconds Scope Out: 3:10:15 PM Total Procedure Duration Time 0 hours 13 minutes 3 seconds Findings: The perianal and digital rectal examinations were normal. An area of mildly congested mucosa was found in the sigmoid colon, in the descending colon and in the transverse colon. Biopsies were taken with a cold forceps for histology. Verification of patient identification for the specimen was done. Estimated blood loss was minimal. The terminal ileum appeared normal. Biopsies were taken with a cold forceps for histology. Verification of patient identification for the specimen was done. Estimated blood loss was minimal. Impression: - Congested mucosa in the sigmoid colon, in the descending colon and in the transverse colon. Biopsied. - The examined portion of the ileum was normal. Biopsied. Recommendation: - Discharge patient to home. - Resume previous diet. - Continue present medications. - Await pathology results. - Repeat colonoscopy is recommended. The colonoscopy date will be determined after pathology results from today's exam become available for review. Procedure Code(s): --- Professional --- 40317, Colonoscopy, flexible; with biopsy, single or multiple CPT copyright 2021 [employer]. All rights reserved. The codes documented in this report are preliminary and upon desktop publishing specialist review may be revised to meet current compliance requirements. Blue Rose DO 05/27/2024 3:16:20 PM This report has been signed electronically. Number of Addenda: 0 Note Initiated On: 05/27/2024 2:55 PM 05/27/24 1516 Date Blue Edward Signature: Date (if indicated) CC: Dr. Silverio Haley MD; Blue Rose DO Date Dictated: 05/27/24 1455 Date Transcribed: Transcri (more content not included)... Normal [facility] EGD Reporton 05-27-2024 EGD Report [facility] Medical Records Department [address] [place] [address] EGD Report MR#: [id number] Acct: [id number] Name: SALLY VARGAS Rep #: [id number] : 1980 43 From: Blue Rose DO PCP: Dr. Silverio Haley MD Status:[facility] Patient Name: Sally Vargas Procedure Date: 05/27/2024 2:37 PM Date of : 1980 Age: 43 Procedure: Upper GI endoscopy Indications: Epigastric abdominal pain, Heartburn, Failure to respond to medical treatment Providers: Blue Rose DO Referring MD: Silverio Haley Medicines: Monitored Anesthesia Care Patient Profile: This is a 43 year old female. Refer to note in patient chart for documentation of history and physical. Patient has symptoms of chronic abdominal cramping, acute epigastric abdominal pain, acute dyspepsia and acute throat burning. Complications: No immediate complications. Procedure: Pre-Anesthesia Assessment: - Prior to the procedure, a History and Physical was performed, and patient medications and allergies were reviewed. The patient is competent. The risks and benefits of the procedure and the sedation options and risks were discussed with the patient. All questions were answered and informed consent was obtained. Patient identification and proposed procedure were verified by the physician in the pre-procedure area. Mental Status Examination: alert and oriented. Airway Examination: normal oropharyngeal airway and neck mobility. Respiratory Examination: clear to auscultation. CV Examination: normal. Prophylactic Antibiotics: The patient does not require prophylactic antibiotics. Prior Anticoagulants: The patient has taken no anticoagulant or antiplatelet agents. ASA Grade Assessment: II - A patient with mild systemic disease. After reviewing the risks and benefits, the patient was deemed in satisfactory condition to undergo the procedure. The anesthesia plan was to use monitored anesthesia care (MAC). Immediately prior to administration of medications, the patient was re-assessed for adequacy to receive sedatives. The heart rate, respiratory rate, oxygen saturations, blood pressure, adequacy of pulmonary ventilation, and response to care were monitored throughout the procedure. The physical status of the patient was re-assessed after the procedure. After obtaining informed consent, the endoscope was passed under direct vision. Throughout the procedure, the patient's blood pressure, pulse, and oxygen saturations were monitored continuously. The Colonoscope was introduced through the mouth, and advanced to the second part of duodenum. The upper GI endoscopy was accomplished without difficulty. The patient tolerated the procedure well. Scope In: 2:52:27 PM Scope Out: 2:55:20 PM Total Procedure Duration Time 0 hours 2 minutes 53 seconds Findings: LA Grade B (one or more mucosal breaks greater than 5 mm, not extending between the tops of two mucosal folds) esophagitis with no bleeding was found 37 to 39 cm from the incisors. Biopsies were taken with a cold forceps for histology. Verification of patient identification for the specimen was done. Estimated blood loss was minimal. A few localized 5 mm erosions with stigmata of recent bleeding were found in the gastric antrum. Biopsies were taken with a cold forceps for histology. Verification of patient identification for the specimen was done. Biopsies were taken with a cold forceps for Helicobacter pylori testing. Verification of patient identification for the specimen was done. Estimated blood loss was minimal. A few localized erosions without bleeding were found in the duodenal bulb. Biopsies were taken with a cold forceps for histology. Verification of patient identification for the specimen was done. Estimated blood loss was minimal. Impression: - LA Grade B erosive esophagitis with no bleeding. Biopsied. - Erosive gastropathy with stigmata of recent bleeding. Biopsied. - Duodenal erosions without bleeding. Biopsied. Recommendation: - Discharge patient to home. - Resume previous diet. - Continue present medications. - Await pathology results. Procedure Code(s): --- Professional --- 58668, Esophagogastroduodenosco py, flexible, transoral; with biopsy, single or multiple CPT copyright 2021 [employer]. All rights reserved. The codes documented in this report are preliminary and upon desktop publishing specialist review may be revised to meet current compliance requirements. Blue Rose DO 05/27/2024 3:14:23 PM This report has been signed electronically. Number of Addenda: 0 Note Initiated On: 05/27/2024 2:37 PM 05/27/24 1514 Date Blue Rose DO Yumiko Signature: Date (if indicated) C (more content not included)... Normal [facility] H Pylori (initial)on 024 H Pylori (initial) ---- Patient Age/Sex Location Account Attending Physician SALLY VARGAS 43/F EN [id number] Blue Rose, DO Specimen: [id number] Received: 05/30/24 Status: NOA Avalos Num: [id number] Spec Type: IMMUNO Subm Dr: Blue Rose DO PHYSICIAN INSTITUTION [address] [address] SPECIMEN INFORMATION: Tissue Source: B- Antral biopsy Clinical Info: Nausea/vomiting, abdominal pain Specimen Number: [id number] CPT code: 63841 METHODOLOGY: Deparaffinized sections of prefer/formalin-fixed tissue or PAP/DQ stained slides are incubated with monoclonal/polyclonal antibodies/oligonucleoti de probes. Localization is made via biotin free immunoperoxidase method. Appropriate controls are performed and reacted as expected. Results on target cell population are indicated in the following table: RESULTS: ANTIBODY / CLONE RESULT Block B H Pylori (polyclonal) negative These tests were developed and their performance characteristics determined by [facility]. They may not have been cleared or approved by the U.S. Food and Drug Administration. The FDA has determined that such clearance or approval is not necessary. The above immunohistochemical/dual KISHORE markers are ordered and reviewed by the Pathologist. INTERPRETATION: B. Antrum, biopsy: Negative for Helicobacter pylori organisms. NAV/ 05/31/2024 Signed (signature on file) Dr. Jozef Jones MD 05/31/24 1506 Normal [facility] Comment on above: Performed By: #### P H.PYLORI #### [facility] [address] [place], [address] MR/POSTOP.Ayanna 05-27-2024 MR/POSTOP.[facility] Medical Records Department [address] [place] [address] Anesthesia Postop Eval I 05/27/24 1519 MR#: [id number] Acct: [id number] Name: SALLY VARGAS Rep #: [id number] : 1980 43 From: Kun Botello PCP: Dr. Silverio Haley MD Status:[facility] Y Race: C Location: [place] [address] Anesthesia: Postop Eval I Current Vital Signs Temperature: 98 F Pulse Rate: 83 Blood Pressure: 100/40 Respiratory Rate: 16 Pulse Ox: 100 Oxygen Delivery Method: Room Air Assessment Airway patent: Yes Spontaneous unlabored respirations: Yes Mental status: Awake and Calm nausea: No Vomiting: No Anesthesia Complication: No Fluid Hydration Crystalloid volume administer (ml): 800 Total IV fluid infused: 800 Progress Note Anesthesia document: Postop Eval 1 completed: Yes 05/27/24 1520 Date Kun Calderon Signature: Date CC: Signed Normal [facility] MR/QTEXTXEP3cl 05-27-2024 [facility] Medical Records Department [address] [place] [address] Anesthesia Postop Eval II 05/27/24 1531 MR#: [id number] Acct: [id number] Name: SALLY VARGAS Rep #: [id number] : 1980 43 From: Kal Capellan MD PCP: Dr. Silverio Haley MD Status:[facility] Y Race: C Location: [place] [address] Anesthesia Postop Eval I Sum Postop Eval Completion status Anesthesia document: Postop Eval 1 completed: Yes Anesthesia Postop Eval I Summary Anesthesia Postop Eval I Summary: Anesthesia Postop Eval I: Assessment Summary Airway patent Yes 05/27/24 15:20 [email or web address] Spontaneous unlabored Yes 05/27/24 15:20 [email or web address] respirations Mental status Awake,Calm 05/27/24 15:20 [email or web address] nausea No 05/27/24 15:20 [email or web address] Vomiting No 05/27/24 15:20 [email or web address] Anesthesia Postop Eval I: Fluid Summary Crystalloid volume administer 800 05/27/24 15:20 [email or web address] (ml) Colloids volume administered ( ml) Blood Product volume administered (ml) Total IV fluid infused 800 05/27/24 15:20 [email or web address] Anesthesia Postop Eval I: Summary Notes Anesthesia Complication No 05/27/24 15:20 [email or web address] Anesthesia Complication Comment: Post-operative progress note Anesthesia: Postop Eval II Evaluation Mental status: Awake Pain Level: 0 nausea: No Vomiting: No 05/27/24 1532 Date Kal Calderon Signature: Date CC: Signed Normal [facility] Special Stain Group Ion - Special Stain Group I ------ Patient Age/Sex Location Account Attending Physician SALLY VARGAS 43/F EN [id number] Blue Friend, DO Specimen: [id number] Received: 05/30/24 Status: NOA Avalos Num: [id number] Spec Type: COLON BX Subm Dr: Blue Rose DO HEADER OPERATION: Colonoscopy with biopsy, EGD with biopsy PRE-OP DIAGNOSIS: Nausea/vomiting, abdominal pain TISSUE SUBMITTED: A- Duodenal biopsy, B- Antral biopsy, C- Distal esophagus biopsy, D- Terminal ileum biopsy, E- Random colon biopsy MICROSCOPIC DIAGNOSIS A. Duodenum, biopsy: A fragment of duodenal mucosa with mild non-specific chronic inflammation. B. Antral biopsy: Mild gastritis. See microscopic description and comment. C. Distal esophagus, biopsy: Fragments of gastroesophageal mucosa with chronic inflammation. Intestinal metaplasia (goblet cell metaplasia) not identified. See comment. D. Terminal ileum, biopsy: Fragments of small intestinal mucosa, no pathologic diagnosis.E. Colon, random biopsy: Fragments of colonic mucosa, no pathologic diagnosis. NAV/ 05/31/2024 COMMENT B. The results of immunohistochemistry for Helicobacter pylori will be reported separately ([id number]). C. Alcian blue/PAS stain with matched control is used in the evaluation of the specimen. This specimen predominantly consists of squamous mucosa. MICROSCOPIC DESCRIPTION Slides are reviewed. B. The specimen shows fragments of gastric mucosa with chronic inflammatory cell infiltrates in the lamina propria consisting of lymphocytes and plasma cells, consistent with mild chronic gastritis. GROSS DESCRIPTION A. Received in fixative is one container labeled with the patient's name and designated Duodenal biopsy. The specimen consists of one irregular fragment of light musa soft tissue that measures 0.3 x 0.3 x 0.1 cm. The specimen is totally submitted in one cassette. B. Received in fixative is one container labeled with the patient's name and designated Antral biopsy. The specimen consists of two irregular fragments of light musa soft tissue that measures 0.4 x 0.3 x 0.1 cm. The specimen is totally submitted in one cassette. Patient Age/Sex Location Account Attending Physician SALLY VARGAS 43/F EN [id number] Blue Rose DO C. Received in fixative is one container labeled with the patient's name and designated Distal esophagus biopsy. The specimen consists of two irregular fragments of light musa soft tissue that measures 0.3 x 0.2 x 0.1 cm. The specimen is totally submitted in one cassette. D. Received in fixative is one container labeled with the patient's name and designated Terminal ileum biopsy. The specimen consists of two irregular fragments of light musa soft tissue that in aggregate measure 0.6 x 0.3 x 0.1 cm. The specimen is totally submitted in one cassette. E. Received in fixative is one container labeled with the patient's name and designated Random colon biopsy. The specimen consists of multiple irregular fragments of light musa soft tissue that in aggregate measure 1.0 x 0.5 x 0.1 cm. The specimen is totally submitted in one cassette. 05/30/2024 TC:3 CPT:25418c8,52491 Patient Age/Sex Location Account Attending Physician SALLY VARAGS 43/F EN [id number] Blue Rose DO Signed (signature on file) Dr. Jozef Jones MD 05/31/24 1021 Normal [facility] Comment on above: Performed By: #### M 100.678, L400.0001 #### [facility] [address] [place], [address] [facility] 05-25-2024 [facility] Telephone (INTMWS) -------- SALLY VARGAS ([id number]) 1980 F Date Time Provider Department 05/25/24 [...] review. Patient verbalizes understanding. VIN Hood Krystle, RN 05/25/2024 4:52 PM Signed Patient calls back [...] has not advised on request. VIN Townsend Linda M, LPN 05/27/2024 11:17 AM Signed Pt calls again [...] Date Reviewed: 03/31/2024 Reviewed by: Marcelino Bess APRN.[employer]CHANDISING SPECIALIST - Fully Assessed Reason for Visit: Medication [...] 8 hours as needed for nausea/vomiting. - ffjthn-rqubqudr-tfszcki (CREON 3) 3,000-9,500- 15,000 unit delayed release capsule Take 1 capsule by mouth three times a day with meals. - gabapentin (NEURONTIN) 400 mg capsule Take 1 capsule by mouth every 12 hours. - famotidine (PEPCID) 40 m (more content not included)... Normal [facility] CBC + DIFFon 05-16-2024 Baso # 0.02 x10EE3/UL Normal 0.00 - 0.10 [facility] Comment on above: Performed By: #### 2 33084 ####[facility],[address] [place] [address] Basophils/100 WBC (Bld) 0.2 % Normal 0.0 - 2.0 [facility] Comment on above: Performed By: #### 2 08645 ####[facility],[address] [place] [address] CBC + DIFF Normal [facility] Comment on above: Result Comment: CBC- COMPLETE BLOOD COUNT Performed By: #### 2 29706 ####[place] [address] EO # 0.25 x10EE3/UL Normal 0.00 - 0.50 [facility] Comment on above: Performed By: #### 2 26194 ####[place] [address] Eosinophils/100 WBC (Bld) 2.8 % Normal 0.0 - 7.0 [facility] Comment on above: Performed By: #### 2 76975 ####[place] [address] Erythrocyte distribution width (RBC) [Ratio] 13.2 % Normal 12.0 - 15.6 [facility] Comment on above: Performed By: #### 2 12854 ####[place] [address] Hematocrit (Bld) [Volume fraction] 37.4 % Normal 34.0 - 46.0 [facility] Comment on above: Performed By: #### 2 54768 ####[place] [address] Hemoglobin (Bld) [Mass/Vol] 13.1 g/dL Normal 12.0 - 16.0 [facility] Comment on above: Performed By: #### 2 61045 ####[facility],[address] [place] [address] Lymph # 2.71 x10EE3/UL Normal 0.80 - 2.80 [facility] Comment on above: Performed By: #### 2 29853 ####[facility],[address] [place] [address] Lymphocytes/100 WBC (Bld) 30.7 % Normal 20.0 - 45.0 [facility] Comment on above: Performed By: #### 2 62188 ####[facility],[address] [place] [address] MANUAL DIFF N/A Normal [facility] Comment on above: Performed By: #### 2 59814 ####[facility],[address] [place] [address] MCH (RBC) [Entitic mass] 31 pg Normal 27 - 33 [facility] Comment on above: Performed By: #### 2 48916 ####[facility],[address] [place] [address] MCHC 35 X10 3 Normal 32 - 36 [facility] Comment on above: Performed By: #### 2 51503 ####[facility],[address] [place] [address] MCV (RBC) [Entitic vol] 87 fL Normal 80 - 99 [facility] Comment on above: Performed By: #### 2 80523 ####[facility],[address] [place] [address] Bacon # 0.53 x10EE3/UL Normal 0.20 - 1.00 [facility] Comment on above: Performed By: #### 2 37551 ####[facility],[address] [place] [address] MONOS % 6.0 % Normal 0.0 - 10.0 [facility] Comment on above: Performed By: #### 2 58938 ####[facility],[address],[place] [address] Morphology Adrian (Bld) [Interp] N/A Normal [facility] Comment on above: Performed By: #### 2 35698 ####[facility],[address] [place] [address] Neut # 5.31 x10EE3/UL Normal 1.50 - 7.10 [facility] Comment on above: Performed By: #### 2 89768 ####[facility],[address] [place] [address] Neutrophils/100 WBC (Bld) 60.2 % Normal 46.0 - 76.0 [facility] Comment on above: Performed By: #### 2 98533 ####[facility],[address] [place] [address] PLATELET 247 x10EE3/UL Normal 150 - 450 [facility] Comment on above: Performed By: #### 2 24534 ####[facility],[address] [place] [address] Platelet mean volume (Bld) [Entitic vol] 8.0 fL Normal 6.6 - 10.5 [facility] Comment on above: Result Comment: AUTO MATED DIFFERENTIAL Performed By: #### 2 76095 ####[facility],[address] [place] [address] RBC 4.28 x 10EE6/UL Normal 4.10 - 5.30 [facility] Comment on above: Performed By: #### 2 38734 ####[facility],[address] [place], [place] [id number] WBC 8.8 x 10EE3/UL Normal 4.5 - 10.8 [facility] Comment on above: Performed By: #### 2 62082 ####[facility],[address] [place] [address] CMP with eGFRon 05-16-2024 AGE 43 years Normal [facility] Comment on above: Performed By: #### 2 25088 ####[facility],[address] [place] [address] Albumin [Mass/Vol] 3.9 g/dL Normal 3.4 - 5.0 [facility] Comment on above: Performed By: #### 2 84232 ####[facility],[address] [place] [address] Albumin/Globulin [Mass ratio] 1.1 {ratio} Normal 0.9 - 1.6 [facility] Comment on above: Performed By: #### 2 28769 ####[facility],[address] [place] [address] ALK PHOS 115 U/L Normal 46 - 116 [facility] Comment on above: Performed By: #### 2 79386 ####[facility],[address] [place] [address] ALT [Catalytic activity/Vol] 27 U/L Normal 16 - 63 [facility] Comment on above: Performed By: #### 2 67288 ####[facility],[address] [place] [address] Anion gap [Moles/Vol] 12 mmol/L Normal 10 - 20 [facility] Comment on above: Performed By: #### 2 43069 ####[facility],[address] [place] [address] AST [Catalytic activity/Vol] 15 U/L Normal 13 - 39 [facility] Comment on above: Performed By: #### 2 59750 ####[facility],[address] [place] [address] B/C RATIO 10 ratio Normal 0 - 30 [facility] Comment on above: Performed By: #### 2 71937 ####[facility],[address] [place] [address] Bilirubin [Mass/Vol] 0.7 mg/dL Normal 0.2 - 1.0 [facility] Comment on above: Performed By: #### 2 66518 ####[facility],[address] [place] [address] Calcium [Mass/Vol] 8.8 mg/dL Normal 8.5 - 10.1 [facility] Comment on above: Performed By: #### 2 50215 ####[facility],[address] [place] [address] Chloride [Moles/Vol] 102 mmol/L Normal 98 - 107 [facility] Comment on above: Performed By: #### 2 78667 ####[facility],[address] [place] [address] CMP with eGFR Normal [facility] Comment on above: Result Comment: COMP REHENSIVE METABOLIC PANEL Performed By: #### 2 24349 ####[facility],[address] [place] [address] CO2 [Moles/Vol] 27.1 mmol/L Normal 21.0 - 32.0 [facility] Comment on above: Performed By: #### 2 74782 ####[facility],[address] [place] [address] Creatinine [Mass/Vol] 1.15 mg/dL High 0.55 - 1.02 [facility] Comment on above: Performed By: #### 2 64410 ####[facility],[address] [place] [address] eGFR 51 ML/MINUTE Low 60 - 999 [facility] Comment on above: Performed By: #### 2 05168 ####[facility],[address] [place] [address] GFR/1.73 sq M.predicted among non-blacks MDRD (S/P/Bld) [Vol rate/Area] mL/min/{1.73_m2} Normal 60 - 999 [facility] Comment on above: Result Comment: ACCO RDING TO THE NATIONAL KIDNEY DISEASE EDUCATION PROGRAM(NKDE), A NORMAL eGFRIS A VALUE GREATER THAN OR EQUAL TO 60 ML/MIN/1.73 SQ METERS.CHRONIC KIDNEY DISEASE: <60mL/MIN/1.73 SQ METERSKIDNEY FAILURE: <15mL/MIN/1.73 SQ METERSTHIS TEST SHOULD ONLY BE USED FOR PATIENTS 18 YEARS OF AGE AND OLDER. Performed By: #### 2 77619 ####[facility],[address] [place] [address] Globulin (S) [Mass/Vol] 3.7 g/dL Normal 1.5 - 3.8 [facility] Comment on above: Performed By: #### 2 94745 ####[facility],[address] [place] [address] Glucose [Mass/Vol] 96 mg/dL Normal 74 - 106 [facility] Comment on above: Performed By: #### 2 82925 ####[facility],[address] [place] [address] Potassium [Moles/Vol] 3.7 mmol/L Normal 3.5 - 5.1 [facility] Comment on above: Performed By: #### 2 67562 ####[facility],[address] [place] [address] Protein [Mass/Vol] 7.6 g/dL Normal 6.4 - 8.2 [facility] Comment on above: Performed By: #### 2 30746 ####[facility],[address] [place] [address] Sodium [Moles/Vol] 137 mmol/L Normal 136 - 145 [facility] Comment on above: Performed By: #### 2 55066 ####[facility],[address] [place] [address] Urea nitrogen [Mass/Vol] 12 mg/dL Normal 7 - 18 [facility] Comment on above: Performed By: #### 2 15031 ####[facility],[address] [place] [address] ABDOMEN/PELVIS WOon 05-16 CT ABDOMEN/PELVIS WO Normal [facility] LIPASEon 05-16-2024 Lipase [Catalytic activity/Vol] 35.0 U/L Normal 15.0 - 78.0 [facility] Comment on above: Result Comment: *PLE ASE NOTE THAT RANGES FOR LIPASE HAVE CHANGED OF 09/11/23 DUE TO AN ASSAYUPDATE BY THE SENIOR ACCOUNTING CLERK.THE NEW ASSAY RANGE IS 6-250 U/L, WITH A REFERENCERANGE OF 16-77 U/L. Performed By: #### 2 82632 ####[facility],[address] [place] [address] URINALYSISon 05-16-2024 Amorphous NONE Normal [facility] Comment on above: Performed By: #### 2 24511 ####[facility],[address] [place] [address] Bacteria 2+ Normal [facility] Comment on above: Performed By: #### 2 69622 ####[facility],[address] [place] [address] Bilirubin Ql (U) Negative Normal NORMAL: NEGATIVE [facility] Comment on above: Performed By: #### 2 92831 ####[facility],[address] [place] [address] Casts SEE BELOW Normal [facility] Comment on above: Performed By: #### 2 18923 ####[facility],[address] [place] [address] Clarity (U) clear Normal NORMAL: CLEAR [facility] Comment on above: Performed By: #### 2 90301 ####[facility],[address] [place] [address] Color (U) yellow Normal NORMAL: YELLOW [facility] Comment on above: Performed By: #### 2 19891 ####[facility],[address] [place] [address] Crystals LM Nom (Urine sed) NONE Normal [facility] Comment on above: Performed By: #### 2 86421 ####[facility],[address] [place] [address] Epi Cells MANY Normal [facility] Comment on above: Performed By: #### 2 21731 ####[facility],[address] [place] [address] 66790 Glucose Ql (U) NORM Normal NORMAL: NORMAL [facility] Comment on above: Performed By: #### 2 06093 ####[facility],[address] [place] [address] 67457 Hemoglobin Ql (U) 150 Abnormal NORMAL: NEGATIVE [facility] Comment on above: Performed By: #### 2 48337 ####[facility],[address] [place] [address] 12524 Ketone Negative Normal NORMAL: NEGATIVE [facility] Comment on above: Performed By: #### 2 77316 ####[facility],[address] [place] [address] 25117 Leukocytes 500 Abnormal NORMAL: NEGATIVE [facility] Comment on above: Performed By: #### 2 57508 ####[facility],[address] [place] [address] 30946 Mucous NONE Normal [facility] Comment on above: Performed By: #### 2 30161 ####[facility],[address] [place] [address] 34096 Nitrite Ql (U) Negative Normal NORMAL: NEGATIVE [facility] Comment on above: Performed By: #### 2 06229 ####[facility],[address] [place] [address] 41245 pH (U) 6 [pH] Normal NORMAL: 5.0-8.0 [facility] Comment on above: Performed By: #### 2 95599 ####[facility],[address] [place] [address] 12342 Protein Ql (U) 15 Abnormal NORMAL: NEGATIVE [facility] Comment on above: Performed By: #### 2 91184 ####[facility],[address] [place] [address] 00064 Rbc 5-10 Normal 0-3/hpf [facility] Comment on above: Performed By: #### 2 96879 ####[facility],[address] [place] [address] Sp Cadiz 1.025 Normal NORMAL: 1.010-1.030 [facility] Comment on above: Performed By: #### 2 89275 ####[facility],[address] [place] [address] Specimen Type Void Normal [facility] Comment on above: Performed By: #### 2 84382 ####[facility],[address] [place] [address] Urinalysis dipstick W Reflex Microscopic panel (U) SEE BELOW Normal [facility] Comment on above: Result Comment: MICR OSCOPIC Performed By: #### 2 68316 ####[facility],[address] [place] [address] Urobilinog NORM Normal NORMAL: NORMAL [facility] Comment on above: Performed By: #### 2 33572 ####[facility],[address] [place] [address] Wbc 11-15 Normal 0-5/hpf [facility] Comment on above: Performed By: #### 2 32152 ####[facility],[address] [place] [address] Yeast NONE Normal [facility] Comment on above: Performed By: #### 2 01209 ####[facility],[address] [place], [place] [id number] AMYLASEon 05-14-2024 Amylase [Catalytic activity/Vol] 31 U/L Normal 25 - 115 [facility] Comment on above: Performed By: #### 2 55072 ####[facility],[address] [place] [address] CBC + DIFFon 05-14-2024 Baso # 0.02 x10EE3/UL Normal 0.00 - 0.10 [facility] Comment on above: Performed By: #### 2 13901 ####[facility],[address] [place] [address] 70515 Basophils/100 WBC (Bld) 0.2 % Normal 0.0 - 2.0 [facility] Comment on above: Performed By: #### 2 59820 ####[facility],[address] [place] [address] CBC + DIFF Normal [facility] Comment on above: Result Comment: CBC- COMPLETE BLOOD COUNT Performed By: #### 2 81220 ####[facility],[address] [place] [address] EO # 0.31 x10EE3/UL Normal 0.00 - 0.50 [facility] Comment on above: Performed By: #### 2 82487 ####[address] [address] Eosinophils/100 WBC (Bld) 2.9 % Normal 0.0 - 7.0 [facility] Comment on above: Performed By: #### 2 25974 ####[facility],[address] [place] [address] Erythrocyte distribution width (RBC) [Ratio] 13.4 % Normal 12.0 - 15.6 [facility] Comment on above: Performed By: #### 2 12405 ####[facility],[address] [place] [address] Hematocrit (Bld) [Volume fraction] 39.5 % Normal 34.0 - 46.0 [facility] Comment on above: Performed By: #### 2 09494 ####[facility],[address] [place] [address] 99518 Hemoglobin (Bld) [Mass/Vol] 13.6 g/dL Normal 12.0 - 16.0 [facility] Comment on above: Performed By: #### 2 39401 ####[facility],[address] [place] [address] Lymph # 3.59 x10EE3/UL High 0.80 - 2.80 [facility] Comment on above: Performed By: #### 2 86504 ####[facility],[address] [place], [place] [id number] Lymphocytes/100 WBC (Bld) 34.6 % Normal 20.0 - 45.0 [facility] Comment on above: Performed By: #### 2 74635 ####[facility],[address] [place], [place] [id number] MANUAL DIFF N/A Normal [facility] Comment on above: Performed By: #### 2 12700 ####[facility],[address] [place] [address] MCH (RBC) [Entitic mass] 31 pg Normal 27 - 33 [facility] Comment on above: Performed By: #### 2 41998 ####[place] [address] MCHC 35 X10 3 Normal 32 - 36 [facility] Comment on above: Performed By: #### 2 56801 ####[facility],[address] [place], [place] [id number] MCV (RBC) [Entitic vol] 89 fL Normal 80 - 99 [facility] Comment on above: Performed By: #### 2 92105 ####[facility],[address] [place], [place] [id number] Bacon # 0.57 x10EE3/UL Normal 0.20 - 1.00 [facility] Comment on above: Performed By: #### 2 12408 ####[place] [id number] MONOS % 5.5 % Normal 0.0 - 10.0 [facility] Comment on above: Performed By: #### 2 81380 ####[facility],[address] [place] [address] 98241 Morphology Adrian (Bld) [Interp] N/A Normal [facility] Comment on above: Performed By: #### 2 22064 ####[facility],[address] [place] [address] 15551 Neut # 5.91 x10EE3/UL Normal 1.50 - 7.10 [facility] Comment on above: Performed By: #### 2 63019 ####[facility],[address] [place] [address] 25147 Neutrophils/100 WBC (Bld) 56.9 % Normal 46.0 - 76.0 [facility] Comment on above: Performed By: #### 2 44859 ####[facility],[address] [place] [address] 75149 PLATELET 260 x10EE3/UL Normal 150 - 450 [facility] Comment on above: Performed By: #### 2 39553 ####[place] [address] Platelet mean volume (Bld) [Entitic vol] 8.3 fL Normal 6.6 - 10.5 [facility] Comment on above: Result Comment: AUTO MATED DIFFERENTIAL Performed By: #### 2 10191 ####[address] [address] RBC 4.42 x 10EE6/UL Normal 4.10 - 5.30 [facility] Comment on above: Performed By: #### 2 94147 ####[facility],[address] [place] [address] 37575 WBC 10.4 x 10EE3/UL Normal 4.5 - 10.8 [facility] Comment on above: Performed By: #### 2 01075 ####[facility],[address] [place] [address] 57031 CMP with eGFRon 05-14-2024 AGE 43 years Normal [facility] Comment on above: Performed By: #### 2 65496 ####[facility],[address] [place] [address] 10047 Albumin [Mass/Vol] 3.9 g/dL Normal 3.4 - 5.0 [facility] Comment on above: Performed By: #### 2 87588 ####[facility],[address] [place] [address] 98786 Albumin/Globulin [Mass ratio] 1.0 {ratio} Normal 0.9 - 1.6 [facility] Comment on above: Performed By: #### 2 38057 ####[facility],[address] [place], [place] [id number] ALK PHOS 121 U/L High 46 - 116 [facility] Comment on above: Performed By: #### 2 85232 ####[facility],[address] [place] [address] 60269 ALT [Catalytic activity/Vol] 28 U/L Normal 16 - 63 [facility] Comment on above: Performed By: #### 2 62145 ####[facility],[address] [place] [address] 88119 Anion gap [Moles/Vol] 6 mmol/L Low 10 - 20 [facility] Comment on above: Performed By: #### 2 96879 ####[facility],[address] [place], [place] [phone] AST [Catalytic activity/Vol] 17 U/L Normal 13 - 39 [facility] Comment on above: Performed By: #### 2 83686 ####[facility],[address] [place] [address] 86570 B/C RATIO 11 ratio Normal 0 - 30 [facility] Comment on above: Performed By: #### 2 00751 ####[facility],[address] [place] [address] 36464 Bilirubin [Mass/Vol] 0.7 mg/dL Normal 0.2 - 1.0 [facility] Comment on above: Performed By: #### 2 60982 ####[facility],[address] [place] [address] 29188 Calcium [Mass/Vol] 8.9 mg/dL Normal 8.5 - 10.1 [facility] Comment on above: Performed By: #### 2 05150 ####[facility],[address] [place] [address] 96520 Chloride [Moles/Vol] 99 mmol/L Normal 98 - 107 [facility] Comment on above: Performed By: #### 2 59302 ####[facility],[address] [place], [place] [phone] CMP with eGFR Normal [facility] Comment on above: Result Comment: COMP REHENSIVE METABOLIC PANEL Performed By: #### 2 49673 ####[facility],[address] [place] [address] 52238 CO2 [Moles/Vol] 29.8 mmol/L Normal 21.0 - 32.0 [facility] Comment on above: Performed By: #### 2 61841 ####[facility],[address] [place], [place] [phone] Creatinine [Mass/Vol] 1.22 mg/dL High 0.55 - 1.02 [facility] Comment on above: Performed By: #### 2 19295 ####[facility],[address] [place] [address] 42476 eGFR 48 ML/MINUTE Low 60 - 999 [facility] Comment on above: Performed By: #### 2 61934 ####[facility],[address] [place] [address] 77959 eGFR(AA) 58 ML/MINUTE Low 60 - 999 [facility] Comment on above: Result Comment: ACCO RDING TO THE NATIONAL KIDNEY DISEASE EDUCATION PROGRAM(NKDE), A NORMAL eGFRIS A VALUE GREATER THAN OR EQUAL TO 60 ML/MIN/1.73 SQ METERS.CHRONIC KIDNEY DISEASE: <60mL/MIN/1.73 SQ METERSKIDNEY FAILURE: <15mL/MIN/1.73 SQ METERSTHIS TEST SHOULD ONLY BE USED FOR PATIENTS 18 YEARS OF AGE AND OLDER. Performed By: #### 2 45579 ####[facility],[address] [place] [address] 48509 Globulin (S) [Mass/Vol] 3.8 g/dL Normal 1.5 - 3.8 [facility] Comment on above: Performed By: #### 2 06270 ####[facility],[address] [place] [address] 60838 Glucose [Mass/Vol] 101 mg/dL Normal 74 - 106 [facility] Comment on above: Performed By: #### 2 50514 ####[facility],[address] [place] [address] 29936 Potassium [Moles/Vol] 3.7 mmol/L Normal 3.5 - 5.1 [facility] Comment on above: Performed By: #### 2 84411 ####[facility],[address] [place] [address] 70853 Protein [Mass/Vol] 7.7 g/dL Normal 6.4 - 8.2 [facility] Comment on above: Performed By: #### 2 00449 ####[facility],[address] [place] [address] 29362 Sodium [Moles/Vol] 131 mmol/L Low 136 - 145 [facility] Comment on above: Performed By: #### 2 72537 ####[facility],[address] [place] [address] 84737 Urea nitrogen [Mass/Vol] 13 mg/dL Normal 7 - 18 [facility] Comment on above: Performed By: #### 2 58897 ####[facility],[address] [place] [address] 60863 LIPASEon 05-14-2024 Lipase [Catalytic activity/Vol] 46.0 U/L Normal 15.0 - 78.0 [facility] Comment on above: Result Comment: *PLE ASE NOTE THAT RANGES FOR LIPASE HAVE CHANGED OF 09/11/23 DUE TO AN ASSAYUPDATE BY THE SENIOR ACCOUNTING CLERK.THE NEW ASSAY RANGE IS 6-250 U/L, WITH A REFERENCERANGE OF 16-77 U/L. Performed By: #### 2 43838 ####[facility],[address] [place] [address] 73312 URINALYSISon 05-14-2024 Bilirubin Ql (U) Negative Normal NORMAL: NEGATIVE [facility] Comment on above: Performed By: #### 2 84489 ####[facility],[address] [place] [address] 63527 Clarity (U) clear Normal NORMAL: CLEAR [facility] Comment on above: Performed By: #### 2 56039 ####[facility],[address] [place], [place] [phone] Color (U) yellow Normal NORMAL: YELLOW [facility] Comment on above: Performed By: #### 2 63688 ####[facility],[address] [place] [address] 93368 Glucose Ql (U) NORM Normal NORMAL: NORMAL [facility] Comment on above: Performed By: #### 2 05727 ####[facility],[address] [place] [address] 36910 Hemoglobin Ql (U) Negative Normal NORMAL: NEGATIVE [facility] Comment on above: Performed By: #### 2 23542 ####[facility],[address] [place] [address] 46341 Ketone Negative Normal NORMAL: NEGATIVE [facility] Comment on above: Performed By: #### 2 53949 ####[facility],[address] [place] [address] 86420 Leukocytes Negative Normal NORMAL: NEGATIVE [facility] Comment on above: Performed By: #### 2 05004 ####[facility],[address] [place] [address] 49804 Nitrite Ql (U) Negative Normal NORMAL: NEGATIVE [facility] Comment on above: Performed By: #### 2 62257 ####[facility],[address] [place] [address] 61618 pH (U) 5 [pH] Normal NORMAL: 5.0-8.0 [facility] Comment on above: Performed By: #### 2 48242 ####[facility],[address] [place] [address] Protein Ql (U) 15 Abnormal NORMAL: NEGATIVE [facility] Comment on above: Performed By: #### 2 31884 ####[facility],[address] [place] [address] Sp Cadiz 1.025 Normal NORMAL: 1.010-1.030 [facility] Comment on above: Performed By: #### 2 15325 ####[facility],[address] [place] [address] Specimen Type UNSPECIFIED Normal [facility] Comment on above: Performed By: #### 2 52369 ####[facility],[address] [place] [address] Urinalysis dipstick W Reflex Microscopic panel (U) NOT INDICATED Normal [facility] Comment on above: Performed By: #### 2 74327 ####[facility],[address] [place] [address] Urobilinog NORM Normal NORMAL: NORMAL [facility] Comment on above: Performed By: #### 2 42819 ####[facility],[address] [place], [place] [phone] URINE CULTURE [CCL]on 2023 Bacteria identified Cx Nom (U) Normal [facility] Comment on above: Performed By: #### 2 66166 ####[facility],[address] [place], [place] [id number] URINALYSIS WITH MICROSCOPYon 05-07-2024 Amorphous NONE Normal [facility] Comment on above: Performed By: #### 2 50318 ####[facility],[address] [place] [address] Bacteria 4+ Normal [facility] Comment on above: Performed By: #### 2 58566 ####[facility],[address] [place] [address] 18350 Bilirubin Ql (U) Negative Normal NORMAL: NEGATIVE [facility] Comment on above: Performed By: #### 2 06830 ####[facility],[address] [place], [place] [phone] Casts NONE Normal [facility] Comment on above: Performed By: #### 2 69112 ####[facility],[address] [place], [place] [phone] Clarity (U) sl.cloudy Normal NORMAL: CLEAR [facility] Comment on above: Performed By: #### 2 96575 ####[facility],[address] [place], [place] [id number] Color (U) yellow Normal NORMAL: YELLOW [facility] Comment on above: Performed By: #### 2 21180 ####[facility],[address] [place], [place] [phone] Crystals LM Nom (Urine sed) NONE Normal [facility] Comment on above: Performed By: #### 2 15631 ####[facility],[address] [place] [address] 43015 Epi Cells MODERATE Normal [facility] Comment on above: Performed By: #### 2 14395 ####[facility],[address] [place] [address] 57910 Glucose Ql (U) NORM Normal NORMAL: NORMAL [facility] Comment on above: Performed By: #### 2 82313 ####[facility],[address] [place] [address] 39169 Hemoglobin Ql (U) 10 Abnormal NORMAL: NEGATIVE [facility] Comment on above: Performed By: #### 2 99700 ####[facility],[address] [place] [address] 69752 Ketone Negative Normal NORMAL: NEGATIVE [facility] Comment on above: Performed By: #### 2 53246 ####[facility],[address] [place] [address] Leukocytes Negative Normal NORMAL: NEGATIVE [facility] Comment on above: Result Comment: URIN E MICROSCOPIC Performed By: #### 2 49996 ####[facility],[address] [place] [address] Mucous NONE Normal [facility] Comment on above: Performed By: #### 2 48553 ####[facility],[address] [place] [address] Nitrite Ql (U) Negative Normal NORMAL: NEGATIVE [facility] Comment on above: Performed By: #### 2 51928 ####[facility],[address] [place] [address] pH (U) 6 [pH] Normal NORMAL: 5.0-8.0 [facility] Comment on above: Performed By: #### 2 88010 ####[facility],[address] [place] [address] Protein Ql (U) 15 Abnormal NORMAL: NEGATIVE [facility] Comment on above: Performed By: #### 2 53541 ####[facility],[address] [place] [address] Rbc 0-5 Normal 0-3 / hpf [facility] Comment on above: Performed By: #### 2 48877 ####[facility],[address] [place] [address] Sp Cadiz 1.020 Normal NORMAL: 1.010-1.030 [facility] Comment on above: Performed By: #### 2 63006 ####[facility],[address] [place] [address] Specimen Type UNSPECIFIED Normal [facility] Comment on above: Performed By: #### 2 77803 ####[facility],[address] [place] [address] URINALYSIS WITH MICROSCOPY Normal [facility] Comment on above: Result Comment: URIN ALYSIS Performed By: #### 2 43524 ####[facility],[address] [place] [address] 66326 Urobilinog NORM Normal NORMAL: NORMAL [facility] Comment on above: Performed By: #### 2 23297 ####[facility],[address] [place] [address] 30496 Wbc NONE Normal 0-5 / hpf [facility] Comment on above: Performed By: #### 2 02523 ####[facility],[address] [place] [address] 12141 Yeast NONE Normal [facility] Comment on above: Performed By: #### 2 97735 ####[facility],[address] [place] [address] 59231 CBC + DIFFon 05-01-2024 Baso # 0.01 x10EE3/UL Normal 0.00 - 0.10 [facility] Comment on above: Performed By: #### 2 26581 ####[facility],[address] [place] [address] 56706 Basophils/100 WBC (Bld) 0.2 % Normal 0.0 - 2.0 [facility] Comment on above: Performed By: #### 2 70294 ####[facility],[address] [place] [address] 40276 CBC + DIFF Normal [facility] Comment on above: Result Comment: CBC- COMPLETE BLOOD COUNT Performed By: #### 2 64099 ####[facility],[address] [place] [address] 37038 EO # 0.23 x10EE3/UL Normal 0.00 - 0.50 [facility] Comment on above: Performed By: #### 2 21366 ####[facility],[address] [place] [address] 96835 Eosinophils/100 WBC (Bld) 2.9 % Normal 0.0 - 7.0 [facility] Comment on above: Performed By: #### 2 44581 ####[facility],[address] [place] [address] Erythrocyte distribution width (RBC) [Ratio] 12.6 % Normal 12.0 - 15.6 [facility] Comment on above: Performed By: #### 2 94038 ####[facility],[address] [place] [address] Hematocrit (Bld) [Volume fraction] 42.4 % Normal 34.0 - 46.0 [facility] Comment on above: Performed By: #### 2 19352 ####[facility],[address] [place] [address] Hemoglobin (Bld) [Mass/Vol] 14.8 g/dL Normal 12.0 - 16.0 [facility] Comment on above: Performed By: #### 2 88412 ####[place] [address] Lymph # 3.52 x10EE3/UL High 0.80 - 2.80 [facility] Comment on above: Performed By: #### 2 54749 ####[place] [address] Lymphocytes/100 WBC (Bld) 43.3 % Normal 20.0 - 45.0 [facility] Comment on above: Performed By: #### 2 96188 ####[place] [id number] MANUAL DIFF N/A Normal [facility] Comment on above: Performed By: #### 2 18129 ####[place] [id number] MCH (RBC) [Entitic mass] 31 pg Normal 27 - 33 [facility] Comment on above: Performed By: #### 2 37354 ####[place] [address] MCHC 35 X10 3 Normal 32 - 36 [facility] Comment on above: Performed By: #### 2 58329 ####[facility],[address] [place] [address] 97732 MCV (RBC) [Entitic vol] 88 fL Normal 80 - 99 [facility] [place] [facility] Comment on above: Performed By: #### 2 25359 ####[facility],[address] [place] [address] 12748 Bacon # 0.58 x10EE3/UL Normal 0.20 - 1.00 [facility] [facility] Comment on above: Performed By: #### 2 63651 ####[facility],[address] [place] [address] 87749 MONOS % 7.1 % Normal 0.0 - 10.0 [facility] Comment on above: Performed By: #### 2 96148 ####[facility],[address] [place] [address] 30460 Morphology Adrian (Bld) [Interp] N/A Normal [facility] Comment on above: Performed By: #### 2 90004 ####[facility],[address] [place] [address] 81030 Neut # 3.79 x10EE3/UL Normal 1.50 - 7.10 [facility] Comment on above: Performed By: #### 2 64409 ####[facility],[address] [place] [address] 71846 Neutrophils/100 WBC (Bld) 46.6 % Normal 46.0 - 76.0 [facility] Comment on above: Performed By: #### 2 66728 ####[facility],[address] [place] [address] 75610 PLATELET 259 x10EE3/UL Normal 150 - 450 [facility] Comment on above: Performed By: #### 2 78076 ####[facility],[address] [place] [address] 91174 Platelet mean volume (Bld) [Entitic vol] 8.1 fL Normal 6.6 - 10.5 [facility] Comment on above: Result Comment: AUTO MATED DIFFERENTIAL Performed By: #### 2 02435 ####[facility],[address] [place] [address] 43817 RBC 4.80 x 10EE6/UL Normal 4.10 - 5.30 [facility] Comment on above: Performed By: #### 2 20905 ####[facility],[address] [place] [address] 46671 WBC 8.1 x 10EE3/UL Normal 4.5 - 10.8 [facility] Comment on above: Performed By: #### 2 70651 ####[facility],[address] [place] [address] 67174 CMP with eGFRon 05-01-2024 AGE 43 years Normal [facility] Comment on above: Performed By: #### 2 56233 ####[facility],[address] [place] [address] 26336 Albumin [Mass/Vol] 4.1 g/dL Normal 3.4 - 5.0 [facility] Comment on above: Performed By: #### 2 59821 ####[facility],[address] [place] [address] 04281 Albumin/Globulin [Mass ratio] 1.0 {ratio} Normal 0.9 - 1.6 [facility] Comment on above: Performed By: #### 2 29362 ####[facility],[address] [place] [address] 18932 ALK PHOS 125 U/L High 46 - 116 [facility] Comment on above: Performed By: #### 2 21160 ####[address] [address] ALT [Catalytic activity/Vol] 21 U/L Normal 16 - 63 [facility] Comment on above: Performed By: #### 2 82425 ####[facility],[address] [place] [address] 72582 Anion gap [Moles/Vol] 11 mmol/L Normal 10 - 20 [facility] Comment on above: Performed By: #### 2 47334 ####[facility],[address] [place] [address] 14404 AST [Catalytic activity/Vol] 13 U/L Normal 13 - 39 [facility] Comment on above: Performed By: #### 2 17487 ####[facility],[address] [place], [place] [id number] B/C RATIO 13 ratio Normal 0 - 30 [facility] Comment on above: Performed By: #### 2 26715 ####[facility],[address] [place] [address] 65054 Bilirubin [Mass/Vol] 0.6 mg/dL Normal 0.2 - 1.0 [facility] Comment on above: Performed By: #### 2 54330 ####[facility],[address] [place], [place] [phone] Calcium [Mass/Vol] 9.4 mg/dL Normal 8.5 - 10.1 [facility] Comment on above: Performed By: #### 2 79628 ####[facility],[address] [place] [address] 13891 Chloride [Moles/Vol] 101 mmol/L Normal 98 - 107 [facility] Comment on above: Performed By: #### 2 33608 ####[facility],[address] [place] [address] 43316 CMP with eGFR Normal [facility] Comment on above: Result Comment: COMP REHENSIVE METABOLIC PANEL Performed By: #### 2 83942 ####[address] [address] CO2 [Moles/Vol] 29.5 mmol/L Normal 21.0 - 32.0 [facility] Comment on above: Performed By: #### 2 99623 ####[facility],[address] [place] [address] 97888 Creatinine [Mass/Vol] 1.11 mg/dL High 0.55 - 1.02 [facility] Comment on above: Performed By: #### 2 65059 ####[facility],[address] [place], [place] [phone] eGFR 53 ML/MINUTE Low 60 - 999 [facility] Comment on above: Performed By: #### 2 56868 ####[place] [address] GFR/1.73 sq M.predicted among non-blacks MDRD (S/P/Bld) [Vol rate/Area] mL/min/{1.73_m2} Normal 60 - 999 [facility] Comment on above: Result Comment: ACCO RDING TO THE NATIONAL KIDNEY DISEASE EDUCATION PROGRAM(NKDE), A NORMAL eGFRIS A VALUE GREATER THAN OR EQUAL TO 60 ML/MIN/1.73 SQ METERS.CHRONIC KIDNEY DISEASE: <60mL/MIN/1.73 SQ METERSKIDNEY FAILURE: <15mL/MIN/1.73 SQ METERSTHIS TEST SHOULD ONLY BE USED FOR PATIENTS 18 YEARS OF AGE AND OLDER. Performed By: #### 2 64461 ####[place] [phone] Globulin (S) [Mass/Vol] 4.0 g/dL High 1.5 - 3.8 [facility] Comment on above: Performed By: #### 2 34659 ####[address] [address] Glucose [Mass/Vol] 107 mg/dL High 74 - 106 [facility] Comment on above: Performed By: #### 2 90688 ####[address] [address] Potassium [Moles/Vol] 3.8 mmol/L Normal 3.5 - 5.1 [facility] Comment on above: Performed By: #### 2 47214 ####[place] [phone] Protein [Mass/Vol] 8.1 g/dL Normal 6.4 - 8.2 [facility] Comment on above: Performed By: #### 2 84597 ####[facility],[address] [place], [place] [phone] Sodium [Moles/Vol] 138 mmol/L Normal 136 - 145 [facility] Comment on above: Performed By: #### 2 98823 ####[facility],[address] [place] [address] Urea nitrogen [Mass/Vol] 14 mg/dL Normal 7 - 18 [facility] Comment on above: Performed By: #### 2 41162 ####[facility],[address] [place] [address] LIPASEon 05-01-2024 Lipase [Catalytic activity/Vol] 37.0 U/L Normal 15.0 - 78.0 [facility] Comment on above: Result Comment: *PLE ASE NOTE THAT RANGES FOR LIPASE HAVE CHANGED OF 09/11/23 DUE TO AN ASSAYUPDATE BY THE SENIOR ACCOUNTING CLERK.THE NEW ASSAY RANGE IS 6-250 U/L, WITH A REFERENCERANGE OF 16-77 U/L. Performed By: #### 2 47294 ####[facility],[address] [place] [address] URINALYSISon 05-01-2024 Amorphous NONE Normal [facility] Comment on above: Performed By: #### 2 36981 ####[facility],[address] [place], [place] [phone] Bacteria NONE Normal [facility] Comment on above: Performed By: #### 2 18157 ####[place] [phone] Bilirubin Ql (U) Negative Normal NORMAL: NEGATIVE [facility] Comment on above: Performed By: #### 2 75911 ####[facility],[address] [place] [address] Casts NONE Normal [facility] Comment on above: Performed By: #### 2 33077 ####[facility],[address] [place] [address] 92396 Clarity (U) SL. CLOUDY Abnormal NORMAL: CLEAR [facility] Comment on above: Performed By: #### 2 52666 ####[facility],[address] [place] [address] 30509 Color (U) saravanan Normal NORMAL: YELLOW [facility] Comment on above: Performed By: #### 2 63300 ####[facility],[address] [place] [address] 93347 Crystals LM Nom (Urine sed) NONE Normal [facility] Comment on above: Performed By: #### 2 21373 ####[facility],[address] [place] [address] 11686 Epi Cells MODERATE Normal [facility] Comment on above: Performed By: #### 2 63880 ####[facility],[address] [place] [address] 68717 Glucose Ql (U) NORM Normal NORMAL: NORMAL [facility] Comment on above: Performed By: #### 2 39559 ####[facility],[address] [place] [address] 44366 Hemoglobin Ql (U) 10 Abnormal NORMAL: NEGATIVE [facility] Comment on above: Performed By: #### 2 52632 ####[facility],[address] [place] [address] 86285 Ketone Negative Normal NORMAL: NEGATIVE [facility] Comment on above: Performed By: #### 2 91149 ####[facility],[address] [place] [address] 46339 Leukocytes 25 Abnormal NORMAL: NEGATIVE [facility] Comment on above: Performed By: #### 2 25782 ####[facility],[address] [place] [address] 95387 Mucous NONE Normal [facility] Comment on above: Performed By: #### 2 32129 ####[facility],[address] [place] [address] Nitrite Ql (U) Negative Normal NORMAL: NEGATIVE [facility] Comment on above: Performed By: #### 2 40766 ####[facility],[address] [place] [address] pH (U) 6 [pH] Normal NORMAL: 5.0-8.0 [facility] Comment on above: Performed By: #### 2 54456 ####[facility],[address] [place] [address] Protein Ql (U) 30 Abnormal NORMAL: NEGATIVE [facility] Comment on above: Performed By: #### 2 26171 ####[facility],[address] [place] [address] Rbc NONE Normal 0-3/hpf [facility] Comment on above: Performed By: #### 2 89371 ####[facility],[address] [place] [address] Sp Cadiz 1.025 Normal NORMAL: 1.010-1.030 [facility] Comment on above: Performed By: #### 2 32034 ####[facility],[address] [place] [address] Specimen Type UNSPECIFIED Normal [facility] Comment on above: Performed By: #### 2 96864 ####[facility],[address] [place] [address] Urinalysis dipstick W Reflex Microscopic panel (U) SEE BELOW Normal [facility] Comment on above: Result Comment: MICR OSCOPIC Performed By: #### 2 54995 ####[facility],[address] [place] [address] Urobilinog NORM Normal NORMAL: NORMAL [facility] Comment on above: Performed By: #### 2 84187 ####[facility],[address] [place] [address] Wbc 1-5 Normal 0-5/hpf [facility] Comment on above: Performed By: #### 2 98039 ####[facility],[address] [place] [address] Yeast NONE Normal [facility] Comment on above: Performed By: #### 2 42058 ####[facility],[address] [place] [address] CBC + DIFFon 03-17-2024 Baso # 0.02 x10EE3/UL Normal 0.00 - 0.10 [facility] Comment on above: Performed By: #### 2 25460 ####[facility],[address] [place], [place] [phone] Basophils/100 WBC (Bld) 0.3 % Normal 0.0 - 2.0 [facility] Comment on above: Performed By: #### 2 19469 ####[facility],[address] [place] [address] CBC + DIFF Normal [facility] Comment on above: Result Comment: CBC- COMPLETE BLOOD COUNT Performed By: #### 2 32562 ####[facility],[address] [place] [address] EO # 0.29 x10EE3/UL Normal 0.00 - 0.50 [facility] Comment on above: Performed By: #### 2 76814 ####[facility],[address] [place], [place] [phone] Eosinophils/100 WBC (Bld) 3.8 % Normal 0.0 - 7.0 [facility] Comment on above: Performed By: #### 2 92223 ####[facility],[address] [place] [address] Erythrocyte distribution width (RBC) [Ratio] 13.4 % Normal 12.0 - 15.6 [facility] Comment on above: Performed By: #### 2 42479 ####[facility],[address] [place] [address] Hematocrit (Bld) [Volume fraction] 41.2 % Normal 34.0 - 46.0 [facility] Comment on above: Performed By: #### 2 29662 ####[facility],[address] [place] [address] Hemoglobin (Bld) [Mass/Vol] 13.9 g/dL Normal 12.0 - 16.0 [facility] Comment on above: Performed By: #### 2 95480 ####[facility],[address] [place] [address] Lymph # 2.95 x10EE3/UL High 0.80 - 2.80 [facility] Comment on above: Performed By: #### 2 10768 ####[facility],[address] [place] [address] Lymphocytes/100 WBC (Bld) 38.5 % Normal 20.0 - 45.0 [facility] Comment on above: Performed By: #### 2 94902 ####[facility],[address] [place] [address] MANUAL DIFF N/A Normal [facility] Comment on above: Performed By: #### 2 89438 ####[facility],[address] [place] [address] MCH (RBC) [Entitic mass] 30 pg Normal 27 - 33 [facility] Comment on above: Performed By: #### 2 23226 ####[facility],[address] [place] [address] MCHC 34 X10 3 Normal 32 - 36 [facility] Comment on above: Performed By: #### 2 59794 ####[facility],[address] [place], [place] [phone] MCV (RBC) [Entitic vol] 90 fL Normal 80 - 99 [facility] Comment on above: Performed By: #### 2 82546 ####[facility],[address] [place] [address] Bacon # 0.52 x10EE3/UL Normal 0.20 - 1.00 [facility] Comment on above: Performed By: #### 2 83720 ####[facility],[address] [place] [address] MONOS % 6.9 % Normal 0.0 - 10.0 [facility] Comment on above: Performed By: #### 2 60018 ####[facility],[address] [place] [address] Morphology Adrian (Bld) [Interp] N/A Normal [facility] Comment on above: Performed By: #### 2 26951 ####[facility],[address] [place] [address] Neut # 3.87 x10EE3/UL Normal 1.50 - 7.10 [facility] Comment on above: Performed By: #### 2 13004 ####[place] [address] Neutrophils/100 WBC (Bld) 50.5 % Normal 46.0 - 76.0 [facility] Comment on above: Performed By: #### 2 03282 ####[place] [address] PLATELET 239 x10EE3/UL Normal 150 - 450 [facility] Comment on above: Performed By: #### 2 62426 ####[facility],[address] [place] [address] Platelet mean volume (Bld) [Entitic vol] 8.4 fL Normal 6.6 - 10.5 [facility] Comment on above: Result Comment: AUTO MATED DIFFERENTIAL Performed By: #### 2 35612 ####[place] [address] RBC 4.60 x 10EE6/UL Normal 4.10 - 5.30 [facility] Comment on above: Performed By: #### 2 52513 ####[facility],[address] [place] [address] 26593 WBC 7.7 x 10EE3/UL Normal 4.5 - 10.8 [facility] Comment on above: Performed By: #### 2 03150 ####[facility],[address] [place] [address] 64084 CMP with eGFRon 03-17-2024 AGE 43 years Normal [facility] Comment on above: Performed By: #### 2 90756 ####[facility],[address] [place] [address] 54896 Albumin [Mass/Vol] 3.9 g/dL Normal 3.4 - 5.0 [facility] Comment on above: Performed By: #### 2 33901 ####[facility],[address] [place], [place] [phone] Albumin/Globulin [Mass ratio] 1.1 {ratio} Normal 0.9 - 1.6 [facility] Comment on above: Performed By: #### 2 17841 ####[facility],[address] [place] [address] 21394 ALK PHOS 117 U/L High 46 - 116 [facility] Comment on above: Performed By: #### 2 94359 ####[facility],[address] [place] [address] 13645 ALT [Catalytic activity/Vol] 32 U/L Normal 16 - 63 [facility] Comment on above: Performed By: #### 2 16713 ####[facility],[address] [place] [address] 64867 Anion gap [Moles/Vol] 10 mmol/L Normal 10 - 20 [facility] Comment on above: Performed By: #### 2 46398 ####[facility],[address] [place] [address] 95830 AST [Catalytic activity/Vol] 21 U/L Normal 13 - 39 [facility] Comment on above: Performed By: #### 2 24630 ####[facility],[address] [place] [address] 33133 B/C RATIO 11 ratio Normal 0 - 30 [facility] Comment on above: Performed By: #### 2 24217 ####[facility],[address] [place] [address] 90729 Bilirubin [Mass/Vol] 0.7 mg/dL Normal 0.2 - 1.0 [facility] Comment on above: Performed By: #### 2 37788 ####[facility],[address] [place] [address] 64752 Calcium [Mass/Vol] 9.0 mg/dL Normal 8.5 - 10.1 [facility] Comment on above: Performed By: #### 2 73846 ####[facility],[address] [place], [place] [phone] Chloride [Moles/Vol] 101 mmol/L Normal 98 - 107 [facility] Comment on above: Performed By: #### 2 69623 ####[facility],[address] [place], [place] [phone] CMP with eGFR Normal [facility] Comment on above: Result Comment: COMP REHENSIVE METABOLIC PANEL Performed By: #### 2 18505 ####[facility],[address] [place] [address] 06691 CO2 [Moles/Vol] 27.5 mmol/L Normal 21.0 - 32.0 [facility] Comment on above: Performed By: #### 2 79749 ####[facility],[address] [place] [address] 65748 Creatinine [Mass/Vol] 1.09 mg/dL High 0.55 - 1.02 [facility] Comment on above: Performed By: #### 2 66539 ####[facility],[address] [place] [address] 91191 eGFR 55 ML/MINUTE Low 60 - 999 [facility] Comment on above: Performed By: #### 2 13170 ####[facility],[address] [place] [address] 19253 GFR/1.73 sq M.predicted among non-blacks MDRD (S/P/Bld) [Vol rate/Area] mL/min/{1.73_m2} Normal 60 - 999 [facility] Comment on above: Result Comment: ACCO RDING TO THE NATIONAL KIDNEY DISEASE EDUCATION PROGRAM(NKDE), A NORMAL eGFRIS A VALUE GREATER THAN OR EQUAL TO 60 ML/MIN/1.73 SQ METERS.CHRONIC KIDNEY DISEASE: <60mL/MIN/1.73 SQ METERSKIDNEY FAILURE: <15mL/MIN/1.73 SQ METERSTHIS TEST SHOULD ONLY BE USED FOR PATIENTS 18 YEARS OF AGE AND OLDER. Performed By: #### 2 78312 ####[facility],[address] [place] [address] 93716 Globulin (S) [Mass/Vol] 3.6 g/dL Normal 1.5 - 3.8 [facility] Comment on above: Performed By: #### 2 31971 ####[facility],[address] [place] [address] 80376 Glucose [Mass/Vol] 102 mg/dL Normal 74 - 106 [facility] Comment on above: Performed By: #### 2 75626 ####[facility],[address] [place] [address] 71422 Potassium [Moles/Vol] 3.9 mmol/L Normal 3.5 - 5.1 [facility] Comment on above: Performed By: #### 2 34113 ####[facility],[address] [place] [address] 25523 Protein [Mass/Vol] 7.5 g/dL Normal 6.4 - 8.2 [facility] Comment on above: Performed By: #### 2 73836 ####[facility],[address] [place] [address] 68032 Sodium [Moles/Vol] 135 mmol/L Low 136 - 145 [facility] Comment on above: Performed By: #### 2 40789 ####[facility],[address] [place] [address] Urea nitrogen [Mass/Vol] 12 mg/dL Normal 7 - 18 [facility] Comment on above: Performed By: #### 2 07809 ####[facility],[address] [place] [address] CT BRAIN W/O CONTRASTon - CT BRAIN W/O CONTRAST Normal [facility] LIPASEon 03-17-2024 Lipase [Catalytic activity/Vol] 34.0 U/L Normal 15.0 - 78.0 [facility] Comment on above: Result Comment: *PLE ASE NOTE THAT RANGES FOR LIPASE HAVE CHANGED OF 09/11/23 DUE TO AN ASSAYUPDATE BY THE SENIOR ACCOUNTING CLERK.THE NEW ASSAY RANGE IS 6-250 U/L, WITH A REFERENCERANGE OF 16-77 U/L. Performed By: #### 2 60571 ####[place] [address] URINALYSISon 03-17-2024 Bilirubin Ql (U) Negative Normal NORMAL: NEGATIVE [facility] Comment on above: Performed By: #### 2 39809 ####[facility],[address] [place] [address] Clarity (U) sl.cloudy Normal NORMAL: CLEAR [facility] Comment on above: Performed By: #### 2 37387 ####[place] [phone] Color (U) p.yel Normal NORMAL: YELLOW [facility] Comment on above: Performed By: #### 2 86362 ####[address] [address] Glucose Ql (U) NORM Normal NORMAL: NORMAL [facility] Comment on above: Performed By: #### 2 10800 ####[address] [address] Hemoglobin Ql (U) Negative Normal NORMAL: NEGATIVE [facility] Comment on above: Performed By: #### 2 93206 ####[facility],[address] [place] [address] 27022 Ketone Negative Normal NORMAL: NEGATIVE [facility] Comment on above: Performed By: #### 2 16258 ####[facility],[address] [place] [address] 74537 Leukocytes Negative Normal NORMAL: NEGATIVE [facility] Comment on above: Performed By: #### 2 68362 ####[facility],[address] [place] [address] Nitrite Ql (U) Negative Normal NORMAL: NEGATIVE [facility] Comment on above: Performed By: #### 2 57085 ####[facility],[address] [place] [address] pH (U) 6 [pH] Normal NORMAL: 5.0-8.0 [facility] Comment on above: Performed By: #### 2 82943 ####[facility],[address] [place] [address] Protein Ql (U) Negative Normal NORMAL: NEGATIVE [facility] Comment on above: Performed By: #### 2 60250 ####[facility],[address] [place] [address] Sp Cad[place] 1.010 Normal NORMAL: 1.010-1.030 [facility] Comment on above: Performed By: #### 2 94037 ####[facility],[address] [place] [address] Specimen Type UNSPECIFIED Normal [facility] Comment on above: Performed By: #### 2 82927 ####[facility],[address] [place] [address] Urinalysis dipstick W Reflex Microscopic panel (U) NOT INDICATED Normal [facility] Comment on above: Performed By: #### 2 14280 ####[facility],[address],[place] [address] Urobilinog NORM Normal NORMAL: NORMAL [facility] Comment on above: Performed By: #### 2 45655 ####[facility],[address] [place] [address] CBC + DIFFon 03-12-2024 Baso # 0.01 x10EE3/UL Normal 0.00 - 0.10 [facility] Comment on above: Performed By: #### 2 00782 ####[facility],[address] [place] [address] Basophils/100 WBC (Bld) 0.2 % Normal 0.0 - 2.0 [facility] Comment on above: Performed By: #### 2 17067 ####[facility],[address] [place] [address] CBC + DIFF Normal [facility] Comment on above: Result Comment: CBC- COMPLETE BLOOD COUNT Performed By: #### 2 79013 ####[facility],[address] [place] [address] EO # 0.28 x10EE3/UL Normal 0.00 - 0.50 [facility] Comment on above: Performed By: #### 2 73392 ####[facility],[address] [place], [place] [phone] Eosinophils/100 WBC (Bld) 3.8 % Normal 0.0 - 7.0 [facility] Comment on above: Performed By: #### 2 99129 ####[facility],[address] [place], [place] [phone] Erythrocyte distribution width (RBC) [Ratio] 13.4 % Normal 12.0 - 15.6 [facility] Comment on above: Performed By: #### 2 37007 ####[facility],[address] [place] [address] Hematocrit (Bld) [Volume fraction] 36.3 % Normal 34.0 - 46.0 [facility] Comment on above: Performed By: #### 2 91184 ####[facility],[address] [place] [address] Hemoglobin (Bld) [Mass/Vol] 12.2 g/dL Normal 12.0 - 16.0 [facility] Comment on above: Performed By: #### 2 35951 ####[facility],[address] [place] [address] Lymph # 2.90 x10EE3/UL High 0.80 - 2.80 [facility] Comment on above: Performed By: #### 2 02156 ####[facility],[address] [place] [address] Lymphocytes/100 WBC (Bld) 39.0 % Normal 20.0 - 45.0 [facility] Comment on above: Performed By: #### 2 13078 ####[facility],[address] [place] [address] MANUAL DIFF N/A Normal [facility] Comment on above: Performed By: #### 2 22864 ####[facility],[address] [place], [place] [id number] MCH (RBC) [Entitic mass] 30 pg Normal 27 - 33 [facility] Comment on above: Performed By: #### 2 72864 ####[facility],[address] [place], [place] [id number] MCHC 34 X10 3 Normal 32 - 36 [facility] Comment on above: Performed By: #### 2 94186 ####[facility],[address] [place] [address] 29678 MCV (RBC) [Entitic vol] 89 fL Normal 80 - 99 [facility] Comment on above: Performed By: #### 2 96032 ####[facility],[address] [place] [address] Bacon # 0.43 x10EE3/UL Normal 0.20 - 1.00 [facility] Comment on above: Performed By: #### 2 32773 ####[facility],[address] [place] [address] 48779 MONOS % 5.8 % Normal 0.0 - 10.0 [facility] Comment on above: Performed By: #### 2 55989 ####[facility],[address] [place] [address] 90145 Morphology Adrian (Bld) [Interp] N/A Normal [facility] Comment on above: Performed By: #### 2 37044 ####[facility],[address] [place] [address] 45346 Neut # 3.81 x10EE3/UL Normal 1.50 - 7.10 [facility] Comment on above: Performed By: #### 2 48006 ####[facility],[address] [place] [address] 07606 Neutrophils/100 WBC (Bld) 51.2 % Normal 46.0 - 76.0 [facility] Comment on above: Performed By: #### 2 61679 ####[facility],[address] [place] [address] 38939 PLATELET 229 x10EE3/UL Normal 150 - 450 [facility] Comment on above: Performed By: #### 2 77378 ####[facility],[address] [place] [address] 90448 Platelet mean volume (Bld) [Entitic vol] 8.3 fL Normal 6.6 - 10.5 [facility] Comment on above: Result Comment: AUTO MATED DIFFERENTIAL Performed By: #### 2 90385 ####[facility],[address] [place] [address] 52752 RBC 4.06 x 10EE6/UL Low 4.10 - 5.30 [facility] Comment on above: Performed By: #### 2 01265 ####[facility],[address] [place] [address] 11626 WBC 7.4 x 10EE3/UL Normal 4.5 - 10.8 [facility] Comment on above: Performed By: #### 2 51005 ####[facility],[address] [place] [address] 42410 CMP with eGFRon 03-12-2024 AGE 43 years Normal [facility] Comment on above: Performed By: #### 2 95641 ####[facility],[address] [place] [address] 61190 Albumin [Mass/Vol] 3.6 g/dL Normal 3.4 - 5.0 [facility] Comment on above: Performed By: #### 2 95885 ####[facility],[address] [place] [address] 25305 Albumin/Globulin [Mass ratio] 1.1 {ratio} Normal 0.9 - 1.6 [facility] Comment on above: Performed By: #### 2 44831 ####[facility],[address] [place] [address] 12957 ALK PHOS 122 U/L High 46 - 116 [facility] Comment on above: Performed By: #### 2 41220 ####[facility],[address] [place] [address] 99766 ALT [Catalytic activity/Vol] 30 U/L Normal 16 - 63 [facility] Comment on above: Performed By: #### 2 35385 ####[facility],[address] [place] [address] 59452 Anion gap [Moles/Vol] 13 mmol/L Normal 10 - 20 [facility] Comment on above: Performed By: #### 2 03513 ####[facility],[address] [place] [address] 18163 AST [Catalytic activity/Vol] 18 U/L Normal 13 - 39 [facility] Comment on above: Performed By: #### 2 27198 ####[facility],[address] [place] [address] 74743 B/C RATIO 8 ratio Normal 0 - 30 [facility] Comment on above: Performed By: #### 2 06131 ####[facility],[address] [place] [address] 52866 Bilirubin [Mass/Vol] 0.4 mg/dL Normal 0.2 - 1.0 [facility] Comment on above: Performed By: #### 2 52243 ####[facility],[address] [place] [address] 96164 Calcium [Mass/Vol] 8.7 mg/dL Normal 8.5 - 10.1 [facility] Comment on above: Performed By: #### 2 09155 ####[facility],[address] [place] [address] 51344 Chloride [Moles/Vol] 104 mmol/L Normal 98 - 107 [facility] Comment on above: Performed By: #### 2 57140 ####[facility],[address] [place] [address] 91013 CMP with eGFR Normal [facility] Comment on above: Result Comment: COMP REHENSIVE METABOLIC PANEL Performed By: #### 2 17802 ####[facility],[address] [place] [address] 24930 CO2 [Moles/Vol] 26.3 mmol/L Normal 21.0 - 32.0 [facility] Comment on above: Performed By: #### 2 58859 ####[facility],[address] [place] [address] 98045 Creatinine [Mass/Vol] 0.99 mg/dL Normal 0.55 - 1.02 [facility] Comment on above: Performed By: #### 2 57598 ####[facility],[address] [place] [address] 94745 GFR/1.73 sq M.predicted among non-blacks MDRD (S/P/Bld) [Vol rate/Area] mL/min/{1.73_m2} Normal 60 - 999 [facility] Comment on above: Performed By: #### 2 18556 ####[facility],[address] [place] [address] 46294 Result Comment: ACCO RDING TO THE NATIONAL KIDNEY DISEASE EDUCATION PROGRAM(NKDE), A NORMAL eGFRIS A VALUE GREATER THAN OR EQUAL TO 60 ML/MIN/1.73 SQ METERS.CHRONIC KIDNEY DISEASE: <60mL/MIN/1.73 SQ METERSKIDNEY FAILURE: <15mL/MIN/1.73 SQ METERSTHIS TEST SHOULD ONLY BE USED FOR PATIENTS 18 YEARS OF AGE AND OLDER. Globulin (S) [Mass/Vol] 3.4 g/dL Normal 1.5 - 3.8 [facility] Comment on above: Performed By: #### 2 42697 ####[address] [address] Glucose [Mass/Vol] 123 mg/dL High 74 - 106 [facility] Comment on above: Performed By: #### 2 76446 ####[address] [address] Potassium [Moles/Vol] 3.8 mmol/L Normal 3.5 - 5.1 [facility] Comment on above: Performed By: #### 2 49078 ####[address] [address] Protein [Mass/Vol] 7.0 g/dL Normal 6.4 - 8.2 [facility] Comment on above: Performed By: #### 2 42997 ####[address] [address] Sodium [Moles/Vol] 139 mmol/L Normal 136 - 145 [facility] Comment on above: Performed By: #### 2 18058 ####[address] [address] Urea nitrogen [Mass/Vol] 8 mg/dL Normal 7 - 18 [facility] Comment on above: Performed By: #### 2 75299 ####[address] [address] LIPASEon 06-29-2024 Lipase [Catalytic activity/Vol] 44.0 U/L Normal 15.0 - 78.0 [facility] Comment on above: Result Comment: *PLE ASE NOTE THAT RANGES FOR LIPASE HAVE CHANGED OF 09/11/23 DUE TO AN ASSAYUPDATE BY THE SENIOR ACCOUNTING CLERK.THE NEW ASSAY RANGE IS 6-250 U/L, WITH A REFERENCERANGE OF 16-77 U/L. Performed By: #### 2 70546 ####[facility],[address] [place] [address] URINALYSISon 03-12-2024 Amorphous 4+ Normal [facility] Comment on above: Performed By: #### 2 36356 ####[facility],[address] [place] [address] Bacteria NONE Normal [facility] Comment on above: Performed By: #### 2 03541 ####[facility],[address] [place] [address] Bilirubin Ql (U) Negative Normal NORMAL: NEGATIVE [facility] Comment on above: Performed By: #### 2 09588 ####[facility],[address] [place] [address] Casts NONE Normal [facility] Comment on above: Performed By: #### 2 87118 ####[facility],[address] [place] [address] Clarity (U) very cloudy Normal NORMAL: CLEAR [facility] Comment on above: Performed By: #### 2 01528 ####[facility],[address] [place], [place] [id number] Color (U) yellow Normal NORMAL: YELLOW [facility] Comment on above: Performed By: #### 2 88683 ####[facility],[address] [place], [place] [id number] Crystals LM Nom (Urine sed) NONE Normal [facility] Comment on above: Performed By: #### 2 28842 ####[facility],[address] [place], [place] [id number] Epi Cells MANY Normal [facility] Comment on above: Performed By: #### 2 33908 ####[facility],[address] [place] [address] 96802 Glucose Ql (U) NORM Normal NORMAL: NORMAL [facility] Comment on above: Performed By: #### 2 73759 ####[facility],[address] [place] [address] 73099 Hemoglobin Ql (U) Negative Normal NORMAL: NEGATIVE [facility] Comment on above: Performed By: #### 2 70213 ####[facility],[address] [place] [address] 93645 Ketone Negative Normal NORMAL: NEGATIVE [facility] Comment on above: Performed By: #### 2 47916 ####[facility],[address] [place] [address] 13491 Leukocytes Negative Normal NORMAL: NEGATIVE [facility] Comment on above: Performed By: #### 2 04164 ####[facility],[address] [place] [address] 53009 Mucous 4+ Normal [facility] Comment on above: Performed By: #### 2 73654 ####[facility],[address] [place] [address] 35089 Nitrite Ql (U) Negative Normal NORMAL: NEGATIVE [facility] Comment on above: Performed By: #### 2 03983 ####[facility],[address] [place] [address] 78765 pH (U) 5 [pH] Normal NORMAL: 5.0-8.0 [facility] Comment on above: Performed By: #### 2 03654 ####[facility],[address] [place] [address] 77287 Protein Ql (U) 15 Abnormal NORMAL: NEGATIVE [facility] Comment on above: Performed By: #### 2 29138 ####[facility],[address] [place] [address] 63773 Rbc 0-5 Normal 0-3/hpf [facility] Comment on above: Performed By: #### 2 75561 ####[facility],[address] [place] [address] Sp [place] 1.025 Normal NORMAL: 1.010-1.030 [facility] Comment on above: Performed By: #### 2 80431 ####[facility],[address] [place] [address] Specimen Type UNSPECIFIED Normal [facility] Comment on above: Performed By: #### 2 39617 ####[facility],[address] [place] [address] Urinalysis dipstick W Reflex Microscopic panel (U) SEE BELOW Normal [facility] Comment on above: Result Comment: MICR OSCOPIC Performed By: #### 2 65824 ####[facility],[address] [place] [address] Urobilinog NORM Normal NORMAL: NORMAL [facility] Comment on above: Performed By: #### 2 91314 ####[facility],[address] [place], [place] [phone] Wbc 1-5 Normal 0-5/hpf [facility] Comment on above: Performed By: #### 2 89159 ####[facility],[address] [place] [address] 42609 Yeast NONE Normal [facility] Comment on above: Performed By: #### 2 72262 ####[facility],[address] [place], [place] [id number] CT ABDOMEN/PELVIS Won 2023 CT ABDOMEN/PELVIS W Normal [facility] TROPONIN I, HIGH SENSITIVITY on 02-29-2024 HS TROPONIN <4.0 Normal 0.0 - 51.4 [facility] Comment on above: Performed By: #### 2 88091 ####[facility],[address] [place], [place] [id number] C-REACTIVE PROTEINon 06-16-2 024 CRP 1.01 mg/dl High 0.00 - 0.90 [facility] Comment on above: Performed By: #### 2 09647 ####[facility],[address] [place], [place] [id number] CBC + DIFFon 02-28-2024 Baso # 0.02 x10EE3/UL Normal 0.00 - 0.10 [facility] Comment on above: Performed By: #### 2 36097 ####[facility],[address] [place], [place] [address] Basophils/100 WBC (Bld) 0.3 % Normal 0.0 - 2.0 [facility] Comment on above: Performed By: #### 2 45401 ####[facility],[address] [place] [address] CBC + DIFF Normal [facility] Comment on above: Result Comment: CBC- COMPLETE BLOOD COUNT Performed By: #### 2 35864 ####[facility],[address] [place] [address] EO # 0.21 x10EE3/UL Normal 0.00 - 0.50 [facility] Comment on above: Performed By: #### 2 13342 ####[facility],[address] [place], [place] [phone] Eosinophils/100 WBC (Bld) 2.3 % Normal 0.0 - 7.0 [facility] Comment on above: Performed By: #### 2 31302 ####[facility],[address] [place], [place] [id number] Erythrocyte distribution width (RBC) [Ratio] 13.1 % Normal 12.0 - 15.6 [facility] Comment on above: Performed By: #### 2 96771 ####[facility],[address] [place] [address] Hematocrit (Bld) [Volume fraction] 37.3 % Normal 34.0 - 46.0 [facility] Comment on above: Performed By: #### 2 88923 ####[facility],[address] [place], [place] [phone] Hemoglobin (Bld) [Mass/Vol] 12.5 g/dL Normal 12.0 - 16.0 [facility] Comment on above: Performed By: #### 2 06269 ####[facility],[address] [place] [address] Lymph # 3.19 x10EE3/UL High 0.80 - 2.80 [facility] Comment on above: Performed By: #### 2 67255 ####[facility],[address] [place], [place] [id number] Lymphocytes/100 WBC (Bld) 34.3 % Normal 20.0 - 45.0 [facility] Comment on above: Performed By: #### 2 39164 ####[facility],[address] [place] [address] MANUAL DIFF N/A Normal [facility] Comment on above: Performed By: #### 2 61443 ####[facility],[address] [place] [address] 71733 MCH (RBC) [Entitic mass] 30 pg Normal 27 - 33 [facility] Comment on above: Performed By: #### 2 19086 ####[facility],[address] [place] [address] 56108 MCHC 34 X10 3 Normal 32 - 36 [facility] Comment on above: Performed By: #### 2 69877 ####[facility],[address] [place] [address] 66389 MCV (RBC) [Entitic vol] 90 fL Normal 80 - 99 [facility] Comment on above: Performed By: #### 2 94966 ####[facility],[address] [place] [address] 01203 Bacon # 0.51 x10EE3/UL Normal 0.20 - 1.00 [facility] Comment on above: Performed By: #### 2 57737 ####[facility],[address] [place] [address] 44194 MONOS % 5.5 % Normal 0.0 - 10.0 [facility] Comment on above: Performed By: #### 2 46646 ####[facility],[address] [place] [address] 64792 Morphology Adrian (Bld) [Interp] N/A Normal [facility] Comment on above: Performed By: #### 2 60770 ####[facility],[address] [place] [address] 52729 Neut # 5.38 x10EE3/UL Normal 1.50 - 7.10 [facility] Comment on above: Performed By: #### 2 59213 ####[facility],[address] [place] [address] 06657 Neutrophils/100 WBC (Bld) 57.8 % Normal 46.0 - 76.0 [facility] Comment on above: Performed By: #### 2 77363 ####[facility],[address] [place] [address] 08315 PLATELET 246 x10EE3/UL Normal 150 - 450 [facility] Comment on above: Performed By: #### 2 40844 ####[facility],[address] [place] [address] 62167 Platelet mean volume (Bld) [Entitic vol] 8.0 fL Normal 6.6 - 10.5 [facility] Comment on above: Result Comment: AUTO MATED DIFFERENTIAL Performed By: #### 2 33931 ####[facility],[address] [place] [address] 35034 RBC 4.15 x 10EE6/UL Normal 4.10 - 5.30 [facility] Comment on above: Performed By: #### 2 26624 ####[facility],[address] [place] [address] 33691 WBC 9.3 x 10EE3/UL Normal 4.5 - 10.8 [facility] Comment on above: Performed By: #### 2 95137 ####[facility],[address] [place] [address] 32006 CMP with eGFRon 02-28-2024 AGE 43 years Normal [facility] Comment on above: Performed By: #### 2 78671 ####[facility],[address] [place] [address] 80494 Albumin [Mass/Vol] 3.7 g/dL Normal 3.4 - 5.0 [facility] Comment on above: Performed By: #### 2 69563 ####[facility],[address] [place] [address] 03889 Albumin/Globulin [Mass ratio] 1.0 {ratio} Normal 0.9 - 1.6 [facility] Comment on above: Performed By: #### 2 10760 ####[facility],[address] [place] [address] 79852 ALK PHOS 108 U/L Normal 46 - 116 [facility] Comment on above: Performed By: #### 2 06254 ####[facility],[address] [place] [address] 58708 ALT [Catalytic activity/Vol] 28 U/L Normal 16 - 63 [facility] Comment on above: Performed By: #### 2 34944 ####[facility],[address] [place] [address] 85373 Anion gap [Moles/Vol] 11 mmol/L Normal 10 - 20 [facility] Comment on above: Performed By: #### 2 33063 ####[facility],[address] [place] [address] 00716 AST [Catalytic activity/Vol] 15 U/L Normal 13 - 39 [facility] Comment on above: Performed By: #### 2 99231 ####[facility],[address] [place] [address] 58045 B/C RATIO 19 ratio Normal 0 - 30 [facility] Comment on above: Performed By: #### 2 97060 ####[facility],[address] [place] [address] 86174 Bilirubin [Mass/Vol] 0.7 mg/dL Normal 0.2 - 1.0 [facility] Comment on above: Performed By: #### 2 45949 ####[facility],[address] [place] [address] 25572 Calcium [Mass/Vol] 8.9 mg/dL Normal 8.5 - 10.1 [facility] Comment on above: Performed By: #### 2 21532 ####[facility],[address] [place] [address] 37216 Chloride [Moles/Vol] 103 mmol/L Normal 98 - 107 [facility] Comment on above: Performed By: #### 2 70389 ####[facility],[address] [place] [address] 78658 CMP with eGFR Normal [facility] Comment on above: Result Comment: COMP REHENSIVE METABOLIC PANEL Performed By: #### 2 32954 ####[facility],[address] [place] [address] 21265 CO2 [Moles/Vol] 27.2 mmol/L Normal 21.0 - 32.0 [facility] Comment on above: Performed By: #### 2 59012 ####[facility],[address] [place] [address] 33662 Creatinine [Mass/Vol] 1.07 mg/dL High 0.55 - 1.02 [facility] Comment on above: Performed By: #### 2 82989 ####[facility],[address] [place] [address] 40224 eGFR 56 ML/MINUTE Low 60 - 999 [facility] Comment on above: Performed By: #### 2 67101 ####[facility],[address] [place] [address] 78881 GFR/1.73 sq M.predicted among non-blacks MDRD (S/P/Bld) [Vol rate/Area] mL/min/{1.73_m2} Normal 60 - 999 [facility] Comment on above: Result Comment: ACCO RDING TO THE NATIONAL KIDNEY DISEASE EDUCATION PROGRAM(NKDE), A NORMAL eGFRIS A VALUE GREATER THAN OR EQUAL TO 60 ML/MIN/1.73 SQ METERS.CHRONIC KIDNEY DISEASE: <60mL/MIN/1.73 SQ METERSKIDNEY FAILURE: <15mL/MIN/1.73 SQ METERSTHIS TEST SHOULD ONLY BE USED FOR PATIENTS 18 YEARS OF AGE AND OLDER. Performed By: #### 2 98006 ####[facility],[address] [place] [address] 50760 Globulin (S) [Mass/Vol] 3.6 g/dL Normal 1.5 - 3.8 [facility] Comment on above: Performed By: #### 2 04577 ####[facility],[address] [place] [address] 33998 Glucose [Mass/Vol] 109 mg/dL High 74 - 106 [facility] Comment on above: Performed By: #### 2 79678 ####[facility],[address] [place] [address] 94906 Potassium [Moles/Vol] 3.7 mmol/L Normal 3.5 - 5.1 [facility] Comment on above: Performed By: #### 2 46142 ####[facility],[address] [place] [address] 46422 Protein [Mass/Vol] 7.3 g/dL Normal 6.4 - 8.2 [facility] Comment on above: Performed By: #### 2 20185 ####[facility],[address] [place] [address] 78021 Sodium [Moles/Vol] 137 mmol/L Normal 136 - 145 [facility] Comment on above: Performed By: #### 2 27355 ####[facility],[address] [place] [address] 16317 Urea nitrogen [Mass/Vol] 20 mg/dL High 7 - 18 [facility] Comment on above: Performed By: #### 2 05363 ####[facility],[address] [place] [address] 48599 LIPASEon 02-28-2024 Lipase [Catalytic activity/Vol] 52.0 U/L Normal 15.0 - 78.0 [facility] Comment on above: Result Comment: *PLE ASE NOTE THAT RANGES FOR LIPASE HAVE CHANGED OF 09/11/23 DUE TO AN ASSAYUPDATE BY THE SENIOR ACCOUNTING CLERK.THE NEW ASSAY RANGE IS 6-250 U/L, WITH A REFERENCERANGE OF 16-77 U/L. Performed By: #### 2 27654 ####[facility],[address] [place] [address] URINALYSISon 02-28-2024 Amorphous NONE Normal [facility] Comment on above: Performed By: #### 2 71860 ####[place] [address] Bacteria 1+ Normal [facility] Comment on above: Performed By: #### 2 20269 ####[facility],[address] [place] [address] Bilirubin Ql (U) Negative Normal NORMAL: NEGATIVE [facility] Comment on above: Performed By: #### 2 10365 ####[place] [address] Casts NONE Normal [facility] Comment on above: Performed By: #### 2 46112 ####[facility],[address] [place] [address] Clarity (U) sl.cloudy Normal NORMAL: CLEAR [facility] Comment on above: Performed By: #### 2 73002 ####[facility],[address] [place] [address] 56043 Color (U) yellow Normal NORMAL: YELLOW [facility] Comment on above: Performed By: #### 2 09258 ####[facility],[address] [place] [address] Crystals LM Nom (Urine sed) NONE Normal [facility] Comment on above: Performed By: #### 2 24711 ####[facility],[address] [place], [place] [id number] Epi Cells MANY Normal [facility] Comment on above: Performed By: #### 2 64573 ####[facility],[address] [place] [address] Glucose Ql (U) NORM Normal NORMAL: NORMAL [facility] Comment on above: Performed By: #### 2 74378 ####[facility],[address] [place] [address] Hemoglobin Ql (U) 10 Abnormal NORMAL: NEGATIVE [facility] Comment on above: Performed By: #### 2 70327 ####[facility],[address] [place] [address] Ketone Negative Normal NORMAL: NEGATIVE [facility] Comment on above: Performed By: #### 2 02369 ####[facility],[address] [place], [place] [id number] Leukocytes 25 Abnormal NORMAL: NEGATIVE [facility] Comment on above: Performed By: #### 2 15982 ####[facility],[address] [place], [place] [id number] Mucous 2+ Normal [facility] Comment on above: Performed By: #### 2 24339 ####[facility],[address] [place], [place] [id number] Nitrite Ql (U) Negative Normal NORMAL: NEGATIVE [facility] Comment on above: Performed By: #### 2 57449 ####[facility],[address] [place], [place] [id number] pH (U) 5 [pH] Normal NORMAL: 5.0-8.0 [facility] Comment on above: Performed By: #### 2 11595 ####[facility],[address] [place], [place] [id number] Protein Ql (U) 15 Abnormal NORMAL: NEGATIVE [facility] Comment on above: Performed By: #### 2 81859 ####[facility],[address] [place] [address] Rbc NONE Normal 0-3/hpf [facility] Comment on above: Performed By: #### 2 45939 ####[facility],[address] [place] [address] Sp Cadiz 1.020 Normal NORMAL: 1.010-1.030 [facility] Comment on above: Performed By: #### 2 01871 ####[facility],[address] [place] [address] Specimen Type Void Normal [facility] Comment on above: Performed By: #### 2 01558 ####[facility],[address] [place] [address] Urinalysis dipstick W Reflex Microscopic panel (U) SEE BELOW Normal [facility] Comment on above: Result Comment: MICR OSCOPIC Performed By: #### 2 35050 ####[facility],[address] [place] [address] Urobilinog NORM Normal NORMAL: NORMAL [facility] Comment on above: Performed By: #### 2 81558 ####[facility],[address] [place], [place] [id number] Wbc 1-5 Normal 0-5/hpf [facility] Comment on above: Performed By: #### 2 56868 ####[facility],[address] [place], [place] [phone] Yeast 2+ Normal [facility] Comment on above: Performed By: #### 2 00836 ####[facility],[address] [place] [address] C-REACTIVE PROTEINon 06-06-2 024 CRP 0.65 mg/dl Normal 0.00 - 0.90 [facility] Comment on above: Performed By: #### 2 05139 ####[facility],[address] [place] [address]59 CBC + DIFFon 02-18-2024 Baso # 0.02 x10EE3/UL Normal 0.00 - 0.10 [facility] Comment on above: Performed By: #### 2 58642 ####[facility],[address] [place] [address]56 Basophils/100 WBC (Bld) 0.2 % Normal 0.0 - 2.0 [facility] Comment on above: Performed By: #### 2 55805 ####[facility],[address] [place] [address] CBC + DIFF Normal [facility] Comment on above: Result Comment: CBC- COMPLETE BLOOD COUNT Performed By: #### 2 64685 ####[facility],[address] [place] [address] EO # 0.35 x10EE3/UL Normal 0.00 - 0.50 [facility] Comment on above: Performed By: #### 2 39145 ####[facility],[address] [place] [address] Eosinophils/100 WBC (Bld) 3.3 % Normal 0.0 - 7.0 [facility] Comment on above: Performed By: #### 2 64164 ####[facility],[address] [place], [place] [phone] Erythrocyte distribution width (RBC) [Ratio] 12.9 % Normal 12.0 - 15.6 [facility] Comment on above: Performed By: #### 2 94789 ####[facility],[address] [place] [address] Hematocrit (Bld) [Volume fraction] 36.6 % Normal 34.0 - 46.0 [facility] Comment on above: Performed By: #### 2 16893 ####[facility],[address] [place] [address] Hemoglobin (Bld) [Mass/Vol] 12.7 g/dL Normal 12.0 - 16.0 [facility] Comment on above: Performed By: #### 2 37118 ####[facility],[address] [place] [address] Lymph # 3.71 x10EE3/UL High 0.80 - 2.80 [facility] Comment on above: Performed By: #### 2 65416 ####[facility],[address] [place] [address] Lymphocytes/100 WBC (Bld) 35.4 % Normal 20.0 - 45.0 [facility] Comment on above: Performed By: #### 2 10773 ####[facility],[address] [place] [address] MANUAL DIFF N/A Normal [facility] Comment on above: Performed By: #### 2 68881 ####[facility],[address] [place] [address] MCH (RBC) [Entitic mass] 31 pg Normal 27 - 33 [facility] Comment on above: Performed By: #### 2 05361 ####[place] [address] MCHC 35 X10 3 Normal 32 - 36 [facility] Comment on above: Performed By: #### 2 82551 ####[facility],[address] [place] [address] MCV (RBC) [Entitic vol] 90 fL Normal 80 - 99 [facility] Comment on above: Performed By: #### 2 89405 ####[facility],[address] [place] [address] Bacon # 0.56 x10EE3/UL Normal 0.20 - 1.00 [facility] Comment on above: Performed By: #### 2 30653 ####[facility],[address] [place] [address] MONOS % 5.4 % Normal 0.0 - 10.0 [facility] Comment on above: Performed By: #### 2 33826 ####[facility],[address] [place], [place] [phone] Morphology Adrian (Bld) [Interp] N/A Normal [facility] Comment on above: Performed By: #### 2 75978 ####[facility],[address] [place] [address] Neut # 5.83 x10EE3/UL Normal 1.50 - 7.10 [facility] Comment on above: Performed By: #### 2 43618 ####[place] [address] Neutrophils/100 WBC (Bld) 55.7 % Normal 46.0 - 76.0 [facility] Comment on above: Performed By: #### 2 54025 ####[place] [address] PLATELET 240 x10EE3/UL Normal 150 - 450 [facility] Comment on above: Performed By: #### 2 67711 ####[place] [address] Platelet mean volume (Bld) [Entitic vol] 8.9 fL Normal 6.6 - 10.5 [facility] Comment on above: Result Comment: AUTO MATED DIFFERENTIAL Performed By: #### 2 45130 ####[place] [address] RBC 4.07 x 10EE6/UL Low 4.10 - 5.30 [facility] Comment on above: Performed By: #### 2 95087 ####[place] [id number] WBC 10.5 x 10EE3/UL Normal 4.5 - 10.8 [facility] Comment on above: Performed By: #### 2 75142 ####[place] [address] CMP with eGFRon 06-06-2024 AGE 43 years Normal [facility] Comment on above: Performed By: #### 2 45949 ####[facility],[address] [place] [address]95 Albumin [Mass/Vol] 3.7 g/dL Normal 3.4 - 5.0 [facility] Comment on above: Performed By: #### 2 37662 ####[facility],[address] [place] [address]2392 Albumin/Globulin [Mass ratio] 0.9 {ratio} Normal 0.9 - 1.6 [facility] Comment on above: Performed By: #### 2 28572 ####[facility],[address] [place] [address]347 ALK PHOS 112 U/L Normal 46 - 116 [facility] Comment on above: Performed By: #### 2 97530 ####[facility],[address] [place] [address]70 ALT [Catalytic activity/Vol] 22 U/L Normal 16 - 63 [facility] Comment on above: Performed By: #### 2 92557 ####[facility],[address] [place] [address]3664 Anion gap [Moles/Vol] 12 mmol/L Normal 10 - 20 [facility] Comment on above: Performed By: #### 2 04387 ####[facility],[address] [place] [address]9983 AST [Catalytic activity/Vol] 30 U/L Normal 13 - 39 [facility] Comment on above: Performed By: #### 2 40629 ####[address] [address] B/C RATIO 19 ratio Normal 0 - 30 [facility] Comment on above: Performed By: #### 2 22482 ####[facility],[address] [place] [address]23 Bilirubin [Mass/Vol] 0.6 mg/dL Normal 0.2 - 1.0 [facility] Comment on above: Performed By: #### 2 67428 ####[facility],[address] [place] [address]97 Calcium [Mass/Vol] 8.7 mg/dL Normal 8.5 - 10.1 [facility] Comment on above: Performed By: #### 2 09386 ####[facility],[address] [place] [address]78 Chloride [Moles/Vol] 98 mmol/L Normal 98 - 107 [facility] Comment on above: Performed By: #### 2 04968 ####[facility],[address] [place], [place] [phone] CMP with eGFR Normal [facility] Comment on above: Result Comment: COMP REHENSIVE METABOLIC PANEL Performed By: #### 2 65058 ####[facility],[address] [place] [address] 28134 CO2 [Moles/Vol] 26.8 mmol/L Normal 21.0 - 32.0 [facility] Comment on above: Performed By: #### 2 34253 ####[facility],[address] [place] [address]3217 Creatinine [Mass/Vol] 0.97 mg/dL Normal 0.55 - 1.02 [facility] Comment on above: Performed By: #### 2 65723 ####[facility],[address] [place] [address]254 GFR/1.73 sq M.predicted among non-blacks MDRD (S/P/Bld) [Vol rate/Area] mL/min/{1.73_m2} Normal 60 - 999 [facility] Comment on above: Performed By: #### 2 99310 ####[facility],[address] [place] [address] Result Comment: ACCO RDING TO THE NATIONAL KIDNEY DISEASE EDUCATION PROGRAM(NKDE), A NORMAL eGFRIS A VALUE GREATER THAN OR EQUAL TO 60 ML/MIN/1.73 SQ METERS.CHRONIC KIDNEY DISEASE: <60mL/MIN/1.73 SQ METERSKIDNEY FAILURE: <15mL/MIN/1.73 SQ METERSTHIS TEST SHOULD ONLY BE USED FOR PATIENTS 18 YEARS OF AGE AND OLDER. Globulin (S) [Mass/Vol] 4.0 g/dL High 1.5 - 3.8 [facility] Comment on above: Performed By: #### 2 59182 ####[facility],[address] [place] [address]1473 Glucose [Mass/Vol] 80 mg/dL Normal 74 - 106 [facility] Comment on above: Performed By: #### 2 38290 ####[facility],[address] [place] [address]174 Potassium [Moles/Vol] 5.6 mmol/L High 3.5 - 5.1 [facility] Comment on above: Performed By: #### 2 41633 ####[facility],[address] [place] [address] 33248 Protein [Mass/Vol] 7.7 g/dL Normal 6.4 - 8.2 [facility] Comment on above: Performed By: #### 2 34873 ####[facility],[address] [place] [address] 53097 Sodium [Moles/Vol] 131 mmol/L Low 136 - 145 [facility] Comment on above: Performed By: #### 2 67841 ####[facility],[address] [place] [address] 03870 Urea nitrogen [Mass/Vol] 18 mg/dL Normal 7 - 18 [facility] Comment on above: Performed By: #### 2 22668 ####[facility],[address] [place] [address] ABDOMEN/PELVIS Won 2023 CT ABDOMEN/PELVIS W Normal [facility] LIPASEon 02-18-2024 Lipase [Catalytic activity/Vol] 71.0 U/L Normal 15.0 - 78.0 [facility] Comment on above: Result Comment: *PLE ASE NOTE THAT RANGES FOR LIPASE HAVE CHANGED OF 09/11/23 DUE TO AN ASSAYUPDATE BY THE SENIOR ACCOUNTING CLERK.THE NEW ASSAY RANGE IS 6-250 U/L, WITH A REFERENCERANGE OF 16-77 U/L. Performed By: #### 2 21217 ####[facility],[address] [place] [address] TROPONIN I, HIGH SENSITIVITY on 02-18-2024 HS TROPONIN 4.8 pg/mL Normal 0.0 - 51.4 [facility] Comment on above: Performed By: #### 2 42770 ####[place] [id number] URINALYSISon 02-18-2024 Bilirubin Ql (U) Negative Normal NORMAL: NEGATIVE [facility] Comment on above: Performed By: #### 2 70763 ####[facility],[address] [place] [address] Clarity (U) clear Normal NORMAL: CLEAR [facility] Comment on above: Performed By: #### 2 20032 ####[facility],[address] [place], [place] [phone] Color (U) yellow Normal NORMAL: YELLOW [facility] Comment on above: Performed By: #### 2 95046 ####[facility],[address] [place] [address] 66325 Glucose Ql (U) NORM Normal NORMAL: NORMAL [facility] Comment on above: Performed By: #### 2 56855 ####[facility],[address] [place] [address] 85150 Hemoglobin Ql (U) Negative Normal NORMAL: NEGATIVE [facility] Comment on above: Performed By: #### 2 87009 ####[facility],[address] [place] [address]551 Ketone Negative Normal NORMAL: NEGATIVE [facility] Comment on above: Performed By: #### 2 70466 ####[facility],[address] [place], [place] [phone] Leukocytes Negative Normal NORMAL: NEGATIVE [facility] Comment on above: Performed By: #### 2 15954 ####[facility],[address] [place], [place] [phone] Nitrite Ql (U) Negative Normal NORMAL: NEGATIVE [facility] Comment on above: Performed By: #### 2 13924 ####[facility],[address] [place] [address] pH (U) 6.5 [pH] Normal NORMAL: 5.0-8.0 [facility] Comment on above: Performed By: #### 2 17141 ####[facility],[address] [place] [address] Protein Ql (U) Negative Normal NORMAL: NEGATIVE [facility] Comment on above: Performed By: #### 2 35197 ####[facility],[address] [place] [address] Sp Cadiz 1.015 Normal NORMAL: 1.010-1.030 [facility] Comment on above: Performed By: #### 2 00647 ####[facility],[address] [place] [address] Specimen Type Clean catch Normal [facility] Comment on above: Performed By: #### 2 66719 ####[facility],[address] [place] [address] Urinalysis dipstick W Reflex Microscopic panel (U) NOT INDICATED Normal [facility] Comment on above: Performed By: #### 2 55518 ####[facility],[address] [place] [address] Urobilinog NORM Normal NORMAL: NORMAL [facility] Comment on above: Performed By: #### 2 41868 ####[facility],[address] [place] [address] .Auto Diffon 02-04-2024 Basophil, Absolute 0.1 10 3/mcL Normal 0.0-0.2 [facility] ([place]) Comment on above: Performed By: #### U AMIC, UA #### [address] [address] Basophils/100 WBC (Bld) 1.4 % Normal 0.0-2.5 [facility] ([place]) Comment on above: Performed By: #### U AMIC, UA #### [address] [address] Eosinophil, Absolute 0.1 10 3/mcL Normal 0.0-0.4 [facility] ([place]) Comment on above: Performed By: #### U AMIC, UA #### [address] [address] Eosinophils/100 WBC (Bld) 1.7 % Normal 0.0-7.0 [facility] ([place]) Comment on above: Performed By: #### U AMIC, UA #### [address] [address] Lymphocyte, Absolute 2.9 10 3/mcL Normal 0.8-3.9 [facility] ([place]) Comment on above: Performed By: #### U AMIC, UA #### [address] [address] Lymphocytes/100 WBC (Bld) 36.1 % Normal 10.0-50.0 [facility] ([place]) Comment on above: Performed By: #### U AMIC, UA #### [address] [address] Monocyte, Absolute 0.5 10 3/mcL Normal 0.2-1.0 [facility] ([place]) Comment on above: Performed By: #### U AMIC, UA #### [address] [address] Monocytes/100 WBC (Bld) 6.2 % Normal 1.7-13.0 [facility] ([place]) Comment on above: Performed By: #### U AMIC, UA #### [address] [address] Neutrophils/100 WBC (Bld) 54.6 % Normal 37.0-80.0 [facility] ([place]) Comment on above: Performed By: #### U AMIC, UA #### [address] [address] .GFRon 02-04-2024 GFR 65 ml/min/1.73sqm Normal [facility] ([place]) Comment on above: Result Comment: GFR Population [...] Performed By: #### U AMIC, UA #### [address] [address] GFR Non- 54 ml/min/1.73sqm Normal [facility] ([place]) Comment on above: Result Comment: GFR Population [...] Performed By: #### U AMIC, UA #### [address] [address] .MDWon 02-04-2024 Monocyte Distribution Width 16.55 Normal 0.00-20.00 [facility] ([place]) Comment on above: Result Comment: For ED adult patients suspected of sepsis, MDW<=20.0 does not rule out sepsis or risk of sepsis Performed By: #### U AMIC UA #### [address] [address] .NEUABSon 02-04-2024 Neutrophil, Absolute 4.4 10 3/mcL Normal 2.9-6.2 [facility] ([place]) Comment on above: Performed By: #### U AMIC, UA #### [address] [address] .Urinalysis Microscopic (AO) on 02-04-2024 UA Bacteria Trace Abnormal [facility] ([place]) Comment on above: Performed By: #### U A UAMICAO ####[facility] [place], [place] [address] UA RBC 0-5 Abnormal None Seen [facility] ([place]) Comment on above: Performed By: #### U A, UAMICAO ####[place] [id number] [place], [place] [address] UA Squam Epithelial 15-25 Abnormal None Seen [facility] ([place]) Comment on above: Performed By: #### U A, UAMICAO ####[address] [place] [place], [place] [address] UA WBC None Seen Normal None Seen [facility] ([place]) Comment on above: Performed By: #### U A, UAMICAO ####[id number] [place], [place] [address] BMPon 02-04-2024 BUN/Creatinine Ratio 13 ratio Normal 7-27 [facility] ([place]) Comment on above: Performed By: #### U AMIC, UA #### [address] [address] Calcium [Mass/Vol] 9.5 mg/dL Normal 8.4-10.2 [facility] ([place]) Comment on above: Performed By: #### U AMIC, UA #### [address] [address] Chloride [Moles/Vol] 102 mmol/L Normal 98-107 [facility] ([place]) Comment on above: Performed By: #### U AMIC, UA #### [address] [address] CO2 [Moles/Vol] 26 mmol/L Normal 22-29 [facility] ([place]) Comment on above: Performed By: #### U AMIC, UA #### [address] [address] Creatinine [Mass/Vol] 1.10 mg/dL High 0.55-1.02 [facility] ([place]) Comment on above: Performed By: #### U AMIC, UA #### [address] [address] Electrolyte Balance 11.0 mEq/L Normal 4.0-15.0 [facility] ([place]) Comment on above: Performed By: #### U AMIC, UA #### [address] [address] Glucose [Mass/Vol] 106 mg/dL High 70-105 [facility] ([place]) Comment on above: Performed By: #### U AMIC, UA #### [address] [address] Potassium [Moles/Vol] 3.9 mmol/L Normal 3.5-5.1 [facility] ([place]) Comment on above: Performed By: #### U AMIC, UA #### [address] [address] Sodium [Moles/Vol] 139 mmol/L Normal 136-145 [facility] ([place]) Comment on above: Performed By: #### U AMIC, UA #### [address] [address] Urea nitrogen [Mass/Vol] 14 mg/dL Normal 7-18 [facility] ([place]) Comment on above: Performed By: #### U AMIC, UA #### [address] [address] CBCon 02-04-2024 Erythrocyte distribution width (RBC) [Ratio] 13.0 % Normal 11.5-14.5 [facility] ([place]) Comment on above: Performed By: #### U AMIC, UA #### [place] [phone] Hematocrit (Bld) [Volume fraction] 37.0 % Normal 37.0-47.0 [facility] ([place]) Comment on above: Performed By: #### U AMIC, UA #### [place] [id number] Hgb 13.1 G/dL Normal 12.0-16.0 [facility] ([place]) Comment on above: Performed By: #### U AMIC, UA #### [place] [id number] MCH (RBC) [Entitic mass] 30.7 pg Normal 27.0-31.2 [facility] ([place]) Comment on above: Performed By: #### U AMIC, UA #### [place] [address] MCHC 35.3 G/dL Normal 33.0-37.0 [facility] ([place]) Comment on above: Performed By: #### U AMIC, UA #### [place] [id number] MCV (RBC) [Entitic vol] 86.8 fL Normal 80.0-94.0 [facility] ([place]) Comment on above: Performed By: #### U AMIC, UA #### [place] [id number] Platelet 230 10 3/mcL Normal 130-400 [facility] ([place]) Comment on above: Performed By: #### U AMIC, UA #### [place] [id number] Platelet mean volume (Bld) [Entitic vol] 8.9 fL Normal 7.4-10.4 [facility] ([place]) Comment on above: Performed By: #### U AMIC, UA #### [place] [id number] RBC 4.27 10 6/mcL Normal 4.20-5.40 [facility] ([place]) Comment on above: Performed By: #### U AMI, UA #### [facility] [address] [place] [address] WBC 8.1 10 3/mcL Normal 4.6-10.8 [facility] ([place]) Comment on above: Performed By: #### U AMIC, UA #### [facility] [address] [place] [address] ABDOMEN/PELVIS W/O CONTRA STon 02-04-2024 CT [...] 02/04/2024 6:11:16 PM Ordering Provider: ETHAN Guardado [facility]) LABORATORYOrdered By: Eduar ruffin on 02-04-2024 Appearance [...] SS UAon 02-04-2024 Color (U) Yellow Normal [facility] ([place]) Comment on above: Performed By: #### E SR #### [address] [address] Glucose (U) [Mass/Vol] Negative Normal Negative [facility] ([place]) Comment on above: Performed By: #### E SR #### [address] [address] Ketones Ql (U) Negative Normal Negative [facility] ([place]) Comment on above: Performed By: #### E SR #### [address] [address] UA Appear Cloudy Abnormal Clear [facility] ([place]) Comment on above: Performed By: #### E SR #### [address] [address] UA Blood Trace Abnormal Negative [facility] ([place]) Comment on above: Performed By: #### E SR #### [address] [address] UA Leuk Est Negative Normal Negative [facility] ([place]) Comment on above: Performed By: #### E SR #### [address] [address] UA Nitrite Negative Normal Negative [facility] ([place]) Comment on above: Performed By: #### E SR #### [address] [address] UA pH 5.5 Normal 5.0 - 8.0 [facility] ([place]) Comment on above: Performed By: #### E SR #### [address] [address] UA Protein Trace Normal Negative [facility] ([place]) Comment on above: Performed By: #### E SR #### [address] [address] UA Spec Grav >=1.030 Abnormal 1.015-1.025 [facility] ([place]) Comment on above: Performed By: #### E SR #### [address] [address] UA Specimen Type Clean Catch Normal [facility] ([place]) Comment on above: Performed By: #### E SR #### [place] [address] UA Urobilinogen 0.2 E.U./dL Normal 0.2-1.0 [facility] ([place]) Comment on above: Performed By: #### E SR #### [place] [address] Urobilinogen (U) [Mass/Vol] Negative Normal Negative [facility] ([place]) Comment on above: Performed By: #### E SR #### [place] [address] .Auto Diffon 01-31-2024 Basophil, Absolute 0.0 10 3/mcL Normal 0.0-0.2 [facility] ([place]) Comment on above: Performed By: #### B MP, GFR #### [place] [address] Basophils/100 WBC (Bld) 0.1 % Normal 0.0-2.5 [facility] ([place]) Comment on above: Performed By: #### B MP, GFR #### [place] [address] Eosinophil, Absolute 0.0 10 3/mcL Normal 0.0-0.4 [facility] ([place]) Comment on above: Performed By: #### B MP, GFR #### [place] [id number] Eosinophils/100 WBC (Bld) 0.9 % Normal 0.0-7.0 [facility] ([place]) Comment on above: Performed By: #### B MP, GFR #### [facility] [address] [place], [place] [address] Lymphocyte, Absolute 2.3 10 3/mcL Normal 0.8-3.9 [facility] ([place]) Comment on above: Performed By: #### B MP, GFR #### [address] [address] Lymphocytes/100 WBC (Bld) 29.4 % Normal 10.0-50.0 [facility] ([place]) Comment on above: Performed By: #### B MP, GFR #### [address] [address] Monocyte, Absolute 0.5 10 3/mcL Normal 0.2-1.0 [facility] ([place]) Comment on above: Performed By: #### B MP, GFR #### [address] [address] Monocytes/100 WBC (Bld) 6.3 % Normal 1.7-13.0 [facility] ([place]) Comment on above: Performed By: #### B MP, GFR #### [address] [address] Neutrophils/100 WBC (Bld) 63.1 % Normal 37.0-80.0 [facility] ([place]) Comment on above: Performed By: #### B MP, GFR #### [address] [address] .GFRon 01-31-2024 GFR 66 ml/min/1.73sqm Normal [facility] ([place]) Comment on above: Result Comment: GFR Population [...] Performed By: #### B MP, GFR #### [place] [address] GFR Non- 55 ml/min/1.73sqm Normal [facility] ([place]) Comment on above: Result Comment: GFR Population [...] Performed By: #### B MP, GFR #### [place] [address] .MDWon 01-31-2024 Monocyte Distribution Width 19.92 Normal 0.00-20.00 [facility] ([place]) Comment on above: Result Comment: For ED adult patients suspected of sepsis, MDW<=20.0 does not rule out sepsis or risk of sepsis Performed By: #### B MP, GFR #### [place] [address] .NEUABSon 01-31-2024 Neutrophil, Absolute 5.1 10 3/mcL Normal 2.9-6.2 [facility] ([place]) Comment on above: Performed By: #### B MP, GFR #### [place] [address] .Urinalysis Microscopic (AO) on 01-31-2024 UA Bacteria Trace Abnormal [facility] ([place]) Comment on above: Performed By: #### B MP, GFR #### [place] [address] UA Mucous Trace Normal [facility] ([place]) Comment on above: Performed By: #### B MP, GFR #### [place] [address] UA RBC 0-5 Abnormal None Seen [facility] ([place]) Comment on above: Performed By: #### B MP, GFR #### [place] [address] UA Squam Epithelial 5-10 Abnormal None Seen [facility] ([place]) Comment on above: Performed By: #### B MP, GFR #### [place] [address] UA WBC 0-5 Abnormal None Seen [facility] ([place]) Comment on above: Performed By: #### B MP, GFR #### [place] [address] CBCon 01-31-2024 Erythrocyte distribution width (RBC) [Ratio] 12.5 % Normal 11.5-14.5 [facility] ([place]) Comment on above: Performed By: #### B MP, GFR #### [place] [address] Hematocrit (Bld) [Volume fraction] 37.6 % Normal 37.0-47.0 [facility] ([place]) Comment on above: Performed By: #### B MP, GFR #### [place] [address] Hgb 13.3 G/dL Normal 12.0-16.0 [facility] ([place]) Comment on above: Performed By: #### B MP, GFR #### [place] [address] MCH (RBC) [Entitic mass] 31.2 pg Normal 27.0-31.2 [facility] ([place]) Comment on above: Performed By: #### B MP, GFR #### [place] [address] MCHC 35.4 G/dL Normal 33.0-37.0 [facility] ([place]) Comment on above: Performed By: #### B MP, GFR #### [place] [address] MCV (RBC) [Entitic vol] 88.3 fL Normal 80.0-94.0 [facility] ([place]) Comment on above: Performed By: #### B MP, GFR #### [address] [address] Platelet 239 10 3/mcL Normal 130-400 [facility] ([place]) Comment on above: Performed By: #### B MP, GFR #### [address] [address] Platelet mean volume (Bld) [Entitic vol] 9.1 fL Normal 7.4-10.4 [facility] ([place]) Comment on above: Performed By: #### B MP, GFR #### [address] [address] RBC 4.26 10 6/mcL Normal 4.20-5.40 [facility] ([place]) Comment on above: Performed By: #### B MP, GFR #### [address] [address] WBC 8.1 10 3/mcL Normal 4.6-10.8 [facility] ([place]) Comment on above: Performed By: #### B MP, GFR #### [address] [address] CMPon 01-31-2024 Albumin Level 4.5 G/dL Normal 3.5-5.0 [facility] ([place]) Comment on above: Performed By: #### B MP, GFR #### [address] [address] Albumin/Globulin [Mass ratio] 1.2 {ratio} Normal 1.1-2.5 [facility] ([place]) Comment on above: Performed By: #### B MP, GFR #### [address] [address] ALP [Catalytic activity/Vol] 114 U/L Normal 40-135 [facility] ([place]) Comment on above: Performed By: #### B MP, GFR #### [address] [address] ALT [Catalytic activity/Vol] 27 U/L Normal 14-59 [facility] ([place]) Comment on above: Performed By: #### B MP, GFR #### [address] [address] AST [Catalytic activity/Vol] 17 U/L Normal 10-40 [facility] ([place]) Comment on above: Performed By: #### B MP, GFR #### [address] [address] Bili Total 0.9 mg/dL Normal 0.2-1.0 [facility] ([place]) Comment on above: Result Comment: Use of this assay is not recommended for patients undergoing treatment with eltrombopag due to the potential for falsely elevated results. Performed By: #### B MP, GFR #### [address] [address] BUN/Creatinine Ratio 14 ratio Normal 7-27 [facility] ([place]) Comment on above: Performed By: #### B MP, GFR #### [address] [address] Calcium [Mass/Vol] 9.6 mg/dL Normal 8.4-10.2 [facility] ([place]) Comment on above: Performed By: #### B MP, GFR #### [address] [address] Chloride [Moles/Vol] 100 mmol/L Normal 98-107 [facility] ([place]) Comment on above: Performed By: #### B MP, GFR #### [place] [id number] CO2 [Moles/Vol] 26 mmol/L Normal 22-29 [facility] ([place]) Comment on above: Performed By: #### B MP, GFR #### [address] [address] Creatinine [Mass/Vol] 1.09 mg/dL High 0.55-1.02 [facility] ([place]) Comment on above: Performed By: #### B MP, GFR #### [address] [address] Electrolyte Balance 11.0 mEq/L Normal 4.0-15.0 [facility] ([place]) Comment on above: Performed By: #### B MP, GFR #### [address] [address] Globulin 3.7 G/dL Normal [facility] ([place]) Comment on above: Performed By: #### B MP, GFR #### [address] [address] Glucose [Mass/Vol] 110 mg/dL High 70-105 [facility] ([place]) Comment on above: Performed By: #### B MP, GFR #### [address] [address] Potassium [Moles/Vol] 4.3 mmol/L Normal 3.5-5.1 [facility] ([place]) Comment on above: Performed By: #### B MP, GFR #### [place] [id number] Sodium [Moles/Vol] 137 mmol/L Normal 136-145 [facility] ([place]) Comment on above: Performed By: #### B MP, GFR #### [place] [address] Total Protein 8.2 G/dL Normal 6.4-8.2 [facility] ([place]) Comment on above: Performed By: #### B MP, GFR #### [place] [phone] Urea nitrogen [Mass/Vol] 15 mg/dL Normal 7-18 [facility] ([place]) Comment on above: Performed By: #### B MP, GFR #### [address] [address] LIPon 01-31-2024 Lipase Level 41 U/L Normal 16-77 [facility] ([place]) Comment on above: Performed By: #### B MP, GFR #### [address] [address] UAon 01-31-2024 Color (U) Yellow Normal [facility] ([place]) Comment on above: Performed By: #### U AMIC, UA #### [address] [address] Glucose (U) [Mass/Vol] Negative Normal Negative [facility] ([place]) Comment on above: Performed By: #### U AMIC, UA #### [facility] [address] [place] [address] Ketones Ql (U) Negative Normal Negative [facility] ([place]) Comment on above: Performed By: #### U AMIC, UA #### [facility] [address] [place] [address] UA Appear Slightly Cloudy Abnormal Clear [facility] ([place]) Comment on above: Performed By: #### U AMIC, UA #### [place] [address] UA Blood Trace Abnormal Negative [facility] ([place]) Comment on above: Performed By: #### U AMIC, UA #### [place] [address] UA Leuk Est Negative Normal Negative [facility] ([place]) Comment on above: Performed By: #### U AMIC, UA #### [place] [address] UA Nitrite Negative Normal Negative [facility] ([place]) Comment on above: Performed By: #### U AMIC, UA #### [place] [address] UA pH 6.5 Normal 5.0 - 8.0 [facility] ([place]) Comment on above: Performed By: #### U AMIC, UA #### [place] [address] UA Protein Negative Normal Negative [facility] ([place]) Comment on above: Performed By: #### U AMIC, UA #### [place] [address] UA Spec Grav 1.015 Normal 1.015-1.025 [facility] ([place]) Comment on above: Performed By: #### U AMIC, UA #### [place] [address] UA Specimen Type Clean Catch Normal [facility] ([place]) Comment on above: Performed By: #### U AMIC, UA #### [place] [address] UA Urobilinogen 0.2 E.U./dL Normal 0.2-1.0 [facility] ([place]) Comment on above: Performed By: #### U AMIC, UA #### [place] [address] [place] [address] Urobilinogen (U) [Mass/Vol] Negative Normal Negative [facility] ([place]) Comment on above: Performed By: #### U AMIC, UA #### [place] [address] [place] [address] LABORATORYOrdered By: SYSTEM SYSTEM on 01-30-2024 Albumin [...] Code None Seen AO Auto Urine SS Absolute lymphocyte countOrd ered By: Mor Painter on 01-16-2024 Lymphocytes Auto (Unsp spec) [#/Vol] 2.84 10*3/uL 0.83-4.51 [facility] Automated lymphocyte count a s percentage of total leukocytesOrdered By: Mor Painter on 01-16-2024 Lymphocytes/100 WBC Auto (Unsp spec) 37.1 % 19-41 [facility] Basophil percentageOrdered B y: Mor Painter on 01-16-2024 Basophils/100 WBC (Bld) 0.4 % 0-1 [facility] Bilirubin [Mass/Vol] 0.70 mg/dL 0.20-1.00 [facility] Comment on above: For patients on eltr ombopag therapy, use of Dimension Lutz TBIL is not recommended. Chloride [Moles/Vol] 106 mmol/L 98-107 [facility] Eosinophils/100 WBC (Bld) 2.7 % 0-5 [facility] Glucose [Mass/Vol] 95 mg/dL 74-106 [facility] Hemoglobin (Bld) [Mass/Vol] 13.2 g/dL 12.0-15.0 [facility] Monocytes/100 WBC (Bld) 6.7 % 0-10 [facility] Neutrophils (Bld) [#/Vol] 4.0 10*3/uL 2.0-7.7 [facility] Neutrophils/100 WBC (Bld) 52.7 % 47-70 [facility] Potassium [Moles/Vol] 3.7 mmol/L 3.5-5.1 [facility] Protein [Mass/Vol] 7.9 g/dL 6.4-8.2 [facility] Sodium [Moles/Vol] 140 mmol/L 136-145 [facility] WBC (Bld) [#/Vol] 7.7 10*3/uL 4.4-11.0 [facility] Basophil percentage 0-5 SEEN /hpf 0-5 [facility] Bilirubin Test strip Ql (U)O rdered By: Mor Painter on 01-16-2024 Bilirubin Ql (U) Negative Negative [facility] Culture, urineOrdered By: Nadya Painter on 01-16-2024 Bacteria identified Cx Nom (U) Culture exhibits no growth. [facility] Determination of erythrocyte mean corpuscular volume (MCV)Ordered By: Mor Painter on 01-16-2024 MCV (RBC) [Entitic vol] 93.2 fL 81-99 [facility] Erythrocyte distribution wid th ratioOrdered By: Morcharis Painter on 01-16-2024 Erythrocyte distribution width (RBC) [Ratio] 12.8 % 11.6-14.6 [facility] Erythrocyte distribution wid th standard deviationOrdered By: Morcharis Painter on 01-16-2024 Erythrocyte distribution width (RBC) [Entitic vol] 43.6 fL 35.1-43.9 [facility] Hematocrit Auto (Bld) [Volum e fraction]Ordered By: Morcharis Painter on 01-16-2024 Hematocrit (Bld) [Volume fraction] 41.4 % 37-47 [facility] Immature granulocytes/100 WB C Auto (Bld)Ordered By: Morcharis Painter on 01-16-2024 Immature granulocytes/100 WBC (Bld) 0.400 % 0.0-0.9 [facility] Comment on above: IG% - Immature Granu locytes (promyelocytes, myelocytes and metamyelocytes) > 1% indicates that a LEFT SHIFT is Present. Ketones Test strip Ql (U)Ord ered By: Morcharis Painter on 01-16-2024 Ketones Ql (U) 5 mg/dl Negative [facility] Laboratory - Chemistry and C hemistry - challengeOrdered By: [facility] on 01-16-2024 Albumin/Globulin [Mass ratio] 1.3 {ratio} 0.9-2.4 [facility] ALP [Catalytic activity/Vol] 105 U/L 45-117 [facility] ALT [Catalytic activity/Vol] 31 U/L 13-56 [facility] CO2 [Moles/Vol] 32.0 mmol/L 21.0-32.0 [facility] Globulin (S) [Mass/Vol] 3.4 g/dL 2.2-4.2 [facility] Lipase [Catalytic activity/Vol] 39 U/L 13-75 [facility] Comment on above: Please note:LIPASE r evised reference range effective 22. New Lipase methodology. Expected to produce lower values than the previous assay method. NEW Reference Range: 13 - 75 U/L Urea nitrogen/Creatinine [Mass ratio] 15.2 mg/mg 10-20 [facility] - Hematology and Cell countsOrdered By: Mor Painter on 01-16-2024 MCH (RBC) [Entitic mass] 29.7 pg 27.0-32.0 [facility] MCHC (RBC) [Mass/Vol] 31.9 g/dL 32-36 [facility] Nucleated RBC/100 WBC (Bld) [Ratio] 0 % 0-5 [facility] Platelet mean volume (Bld) [Entitic vol] 10.5 fL 6.2-12.0 [facility] Platelets (Bld) [#/Vol] 246 10*3/uL 150-450 [facility] Mucus LM Ql (Urine sed)Order ed By: Mor Painter on 01-16-2024 Mucus Ql (Urine sed) 0 SEEN /hpf [facility] Nitrite Test strip Ql (U)Ord ered By: Mor Painter on 01-16-2024 Nitrite Ql (U) Negative Negative [facility] No Panel InformationOrdered By: Mor Painter on 01-16-2024 Estimated GFR (MDRD) Amer 68 mL/min >60 [facility] Comment on above: GFR Calc Estimated GFR (MDRD) Non-Af Amer 56 mL/min >60 [facility] Comment on above: Non- GFR Calc Urine RBC 0-5 SEEN /hpf 0-5 [facility] Protein Test strip Ql (U)Ord ered By: Mor Painter on 01-16-2024 Protein Ql (U) 30 mg/dl Negative [facility] RBC Auto (Bld) [#/Vol]Ordere d By: Mor Painter on 01-16-2024 RBC (Bld) [#/Vol] 4.44 10*6/uL 4.2-5.4 [place] [facility] Serum or plasma calcium shelley urement (mass/volume)Ordered By: Mor Painter on 01-16-2024 Calcium [Mass/Vol] 9.1 mg/dL 8.5-10.1 [facility] Serum or plasma creatinine m easurement (mass/volume)Ordered By: Mor Painter on 01-16-2024 Creatinine [Mass/Vol] 1.12 mg/dL 0.55-1.02 [facility] Comment on above: The validity of the calculated GFR & GFRAA in patients over 70 years has not been determined. Clinical correlation is essential. Serum or plasma urea nitroge n measurement (mass/volume)Ordered By: Mor Painter on 01-16-2024 Urea nitrogen [Mass/Vol] 17 mg/dL 7-18 [facility] Squamous epithelial cells de tection in urine sediment by light microscopyOrdered By: Mor Painter on 01-16-2024 Epithelial cells.squamous LM Ql (Urine sed) 5-10 SEEN /hpf 5-10 [facility] Thin prep Papanicolaou smear with manual screeningOrdered By: Mor Painter on 01-16-2024 Thin prep Papanicolaou smear with manual screening 4.5 g/dL 3.2-5.0 [facility] Thin prep Papanicolaou smear with manual screening 18 U/L 15-37 [facility] Thin prep Papanicolaou smear with manual screening 2 5-15 [facility] Urine blood detectionOrdered By: Mor Painter on 01-16-2024 RBC Ql (U) 10 /ul Negative [facility] Urine clarityOrdered By: Mor Painter on 01-16-2024 Clarity (U) Sl. Cloudy Clear [facility] Urine color determinationOrd ered By: Mor Painter on 01-16-2024 Color (U) Yellow Yellow [facility] Urine glucose detectionOrder ed By: Mor Painter on 01-16-2024 Glucose Ql (U) Normal mg/dl Normal [facility] Urine leukocyte esterase det ection by dipstickOrdered By: Mor Painter on 01-16-2024 Leukocyte esterase Test strip Ql (U) Negative Negative [facility] Urine pHOrdered By: Mor vizcaino on 01-16-2024 pH (U) 5.0 [pH] 5.0 - 8.0 [facility] Urine sediment bacteria coun t by microscopy (number/high power field)Ordered By: Mor Painter on 01-16-2024 Bacteria LM.HPF (Urine sed) [#/Area] 2 /[HPF] None Seen [facility] Urine specific gravity measu rementOrdered By: Mor Painter on 01-16-2024 Specific gravity (U) [Rel density] 1.030 1.002-1.030 [facility] Urine urobilinogen measureme ntOrdered By: Mor Painter on 01-16-2024 Urobilinogen Ql (U) Normal mg/dl Normal [facility] Basophil percentageOrdered B y: Blue Rose on 01-15-2024 Triglyceride [Mass/Vol] 189 mg/dL <199 [facility] Comment on above: The drugs N-Acetylcy steine and Metamizole may falsely depress this assay.Serum Triglycerides Reference Interval Normal <150 mg/dL Borderline high 150 - 199 mg/dL High 200 - 499 mg/dL Very High > or = 500 mg/dL Erythrocyte sedimentation ra teOrdered By: Blue Rose on 01-15-2024 ESR (Bld) [Velocity] 10 mm/h 0-30 [facility] No Panel InformationOrdered By: Blue Rose on 01-15-2024 C-Reactive Protein Extended Range 9.07 mg/L 0.0-3.0 [facility] Comment on above: C-Reactive Protein ( CRP) provides useful information for thediagnosis, therapy and monitoring of inflammatory processesand associated diseases. For the evaluation of Relative Riskfor Cardiovascular Disease, a High Sensitivity CRP (HSCRP)should be ordered. Parathyroid Hormone (Intact) 73.1 pg/mL 18.4-80.1 [facility] Serum or plasma thyroid stim ulating hormone (TSH) measurement (units/volume)Ordered By: Blue Rose on 01-15-2024 TSH Qn 2.43 uIU/mL 0.358-3.74 [facility] Absolute lymphocyte countOrd ered By: Carson Ramos on 12-26-2023 Lymphocytes Auto (Unsp spec) [#/Vol] 2.71 10*3/uL 0.83-4.51 [facility] Automated lymphocyte count a s percentage of total leukocytesOrdered By: Carson Ramos on 12-26-2023 Lymphocytes/100 WBC Auto (Unsp spec) 30.8 % 19-41 [facility] Basophil percentageOrdered B y: Carson Ramos on 12-26-2023 Basophil percentage 0-5 SEEN /hpf 0-5 [facility] Basophils/100 WBC (Bld) 0.7 % 0-1 [facility] Bilirubin [Mass/Vol] 0.70 mg/dL 0.20-1.00 [facility] Comment on above: For patients on eltr ombopag therapy, use of Dimension Lutz TBIL is not recommended. Chloride [Moles/Vol] 107 mmol/L 98-107 [facility] Eosinophils/100 WBC (Bld) 1.8 % 0-5 [facility] Glucose [Mass/Vol] 127 mg/dL 74-106 [facility] Comment on above: Fasting Glucose resu lt greater than or equal to 126 mg/dL suggests DIABETES MELLITUS per A.D.A. criteria. Hemoglobin (Bld) [Mass/Vol] 13.3 g/dL 12.0-15.0 [facility] Lactate [Moles/Vol] 1.2 mmol/L 0.4-2.0 [facility] Monocytes/100 WBC (Bld) 5.3 % 0-10 [facility] Neutrophils (Bld) [#/Vol] 5.3 10*3/uL 2.0-7.7 [facility] Neutrophils/100 WBC (Bld) 60.4 % 47-70 [facility] Potassium [Moles/Vol] 3.5 mmol/L 3.5-5.1 [facility] Protein [Mass/Vol] 8.0 g/dL 6.4-8.2 [facility] Sodium [Moles/Vol] 140 mmol/L 136-145 [facility] WBC (Bld) [#/Vol] 8.8 10*3/uL 4.4-11.0 [facility] Bilirubin Test strip Ql (U)O rdered By: Carson Ramos on 12-26-2023 Bilirubin Ql (U) Negative Negative [facility] Determination of erythrocyte mean corpuscular volume (MCV)Ordered By: Carson Ramos on 12-26-2023 MCV (RBC) [Entitic vol] 91.4 fL 81-99 [facility] Erythrocyte distribution wid th ratioOrdered By: Carson Ramos on 12-26-2023 Erythrocyte distribution width (RBC) [Ratio] 12.5 % 11.6-14.6 [facility] Erythrocyte distribution wid th standard deviationOrdered By: Carson Ramos on 12-26-2023 Erythrocyte distribution width (RBC) [Entitic vol] 41.4 fL 35.1-43.9 [facility] Hematocrit Auto (Bld) [Volum e fraction]Ordered By: Crason Ramos on 12-26-2023 Hematocrit (Bld) [Volume fraction] 41.2 % 37-47 [facility] Immature granulocytes/100 WB C Auto (Bld)Ordered By: Carson Ramos on 12-26-2023 Immature granulocytes/100 WBC (Bld) 1.000 % 0.0-0.9 [facility] Comment on above: IG% - Immature Granu locytes (promyelocytes, myelocytes and metamyelocytes) > 1% indicates that a LEFT SHIFT is Present. Ketones Test strip Ql (U)Ord ered By: Carson Ramos on 12-26-2023 Ketones Ql (U) Negative Negative [facility] Laboratory - Chemistry and C hemistry - challengeOrdered By: Carson Ramos on 12-26-2023 Albumin/Globulin [Mass ratio] 1.1 {ratio} 0.9-2.4 [facility] ALP [Catalytic activity/Vol] 116 U/L 45-117 [facility] ALT [Catalytic activity/Vol] 41 U/L 13-56 [facility] CO2 [Moles/Vol] 28.0 mmol/L 21.0-32.0 [facility] Globulin (S) [Mass/Vol] 3.9 g/dL 2.2-4.2 [facility] Lipase [Catalytic activity/Vol] 27 U/L 13-75 [facility] Comment on above: Please note:LIPASE r evised reference range effective 22. New Lipase methodology. Expected to produce lower values than the previous assay method. NEW Reference Range: 13 - 75 U/L Urea nitrogen/Creatinine [Mass ratio] 7.3 mg/mg 10-20 [facility] - Hematology and Cell countsOrdered By: Carson Ramos on 12-26-2023 MCH (RBC) [Entitic mass] 29.5 pg 27.0-32.0 [facility] MCHC (RBC) [Mass/Vol] 32.3 g/dL 32-36 [facility] Nucleated RBC/100 WBC (Bld) [Ratio] 0 % 0-5 [facility] Platelet mean volume (Bld) [Entitic vol] 10.7 fL 6.2-12.0 [facility] Platelets (Bld) [#/Vol] 279 10*3/uL 150-450 [facility] Mucus LM Ql (Urine sed)Order ed By: Carson Ramos on 12-26-2023 Mucus Ql (Urine sed) 0 SEEN /hpf [facility] Nitrite Test strip Ql (U)Ord ered By: Carson Ramos on 12-26-2023 Nitrite Ql (U) Negative Negative [facility] No Panel InformationOrdered By: Carson Ramos on 12-26-2023 Urine RBC 0 SEEN /hpf 0-5 [facility] Estimated Creatinine Clearance Calc 68.54 ml/min [facility] Estimated GFR (MDRD) Amer 69 mL/min >60 [facility] Comment on above: GFR Calc Estimated GFR (MDRD) Non-Af Amer 57 mL/min >60 [facility] Comment on above: Non- GFR Calc Protein Test strip Ql (U)Ord ered By: Carson Ramos on 12-26-2023 Protein Ql (U) Negative Negative [facility] RBC Auto (Bld) [#/Vol]Ordere d By: Carson Ramos on 12-26-2023 RBC (Bld) [#/Vol] 4.51 10*6/uL 4.2-5.4 [facility] Serum or plasma calcium shelley urement (mass/volume)Ordered By: Carson Ramos on 12-26-2023 Calcium [Mass/Vol] 9.6 mg/dL 8.5-10.1 [facility] Serum or plasma creatinine m easurement (mass/volume)Ordered By: Carson Ramos on 12-26-2023 Creatinine [Mass/Vol] 1.10 mg/dL 0.55-1.02 [facility] Comment on above: The validity of the calculated GFR & GFRAA in patients over 70 years has not been determined. Clinical correlation is essential. Serum or plasma urea nitroge n measurement (mass/volume)Ordered By: Carson Ramos on 12-26-2023 Urea nitrogen [Mass/Vol] 8 mg/dL 7-18 [facility] Squamous epithelial cells de tection in urine sediment by light microscopyOrdered By: Carson Ramos on 12-26-2023 Epithelial cells.squamous LM Ql (Urine sed) 0-5 SEEN /hpf 5-10 [facility] Thin prep Papanicolaou smear with manual screeningOrdered By: Carson Ramos on 12-26-2023 Thin prep Papanicolaou smear with manual screening 4.1 g/dL 3.2-5.0 [facility] Thin prep Papanicolaou smear with manual screening 26 U/L 15-37 [facility] Thin prep Papanicolaou smear with manual screening 5 5-15 [facility] Urine blood detectionOrdered By: Carson Ramos on 12-26-2023 RBC Ql (U) Negative Negative [facility] Urine clarityOrdered By: Britt Ramos on 12-26-2023 Clarity (U) Sl. Cloudy Clear [facility] Urine color determinationOrd ered By: Carson Ramos on 12-26-2023 Color (U) Yellow Yellow [facility] Urine glucose detectionOrder ed By: Carson Ramos on 12-26-2023 Glucose Ql (U) Normal mg/dl Normal [facility] Urine leukocyte esterase det ection by dipstickOrdered By: Carson Ramos on 12-26-2023 Leukocyte esterase Test strip Ql (U) Negative Negative [facility] Urine pHOrdered By: Carson kovacs on 12-26-2023 pH (U) 7.0 [pH] 5.0 - 8.0 [facility] Urine sediment bacteria coun t by microscopy (number/high power field)Ordered By: Carson Ramos on 12-26-2023 Bacteria LM.HPF (Urine sed) [#/Area] 0 /[HPF] None Seen [facility] Urine specific gravity measu rementOrdered By: Carson Ramos on 12-26-2023 Specific gravity (U) [Rel density] 1.010 1.002-1.030 [facility] Urine urobilinogen measureme ntOrdered By: Carson Ramos on 12-26-2023 Urobilinogen Ql (U) Normal mg/dl Normal [facility] STREP A MOLECULAR (POC)on Procedural Control Valid [facility] Strep A (POCT) Negative Negative [facility] XR Chest PA and Lateralon IMPRESSION: No radiographic evidence of acute cardiopulmonary abnormality. [employer] Supervisor: HERMINIO Transcribe Date/Time: Dec 16 2023 5:36P Dictated by : FERNANDO BARNES MD This examination was interpreted and the report reviewed and electronically signed by: FERNANDO BARNES MD on Dec 16 2023 5:36PM EST DIVISION OF RADIOLOGY * * *Final [...] chest are unremarkable. DIVISION OF RADIOLOGY Provider, [facility] - 12/16/2023 * * *Final Report* * [...] No radiographic evidence of acute cardiopulmonary abnormality. [employer] Supervisor: HERMINIO Transcribe Date/Time: Dec 16 2023 5:36P Dictated by : FERNANDO BARNES MD This examination was interpreted and the report reviewed and electronically signed by: FERNANDO BARNES MD on Dec 16 2023 5:36PM EST [facility] Radiology Study observation (narrative) [facility] XR Chest PA and LateralOrder ed By: Ccf Provider on 12-16-[address] [facility] Albumin Elph [Mass/Vol]Order ed By: Blue Rose on 12-04-2023 Albumin [Mass/Vol] 3.6 g/dL 2.9-4.4 [facility] Atypical P-ANCA titerOrdered By: Blue Rose on 12-04-2023 Neutrophil cytoplasmic Ab.perinuclear.atypical IF (S) [Titer] <1:20 titer Neg:<1:20 [facility] Comment on above: *Additional results available. Contact laboratory/see report*The atypical pANCA pattern has been observed in asignificant percentage of patients with ulcerative colitis,primary sclerosing cholangitis and autoimmune hepatitis. Basophil percentageOrdered B y: Jonh Geiger on 12-04-2023 Chloride [Moles/Vol] 111 mmol/L 98-107 [facility] Glucose [Mass/Vol] 98 mg/dL 74-106 [facility] Hemoglobin (Bld) [Mass/Vol] 12.7 g/dL 12.0-15.0 [facility] Potassium [Moles/Vol] 3.7 mmol/L 3.5-5.1 [facility] Sodium [Moles/Vol] 141 mmol/L 136-145 [facility] WBC (Bld) [#/Vol] 5.7 10*3/uL 4.4-11.0 [facility] Chitobioside IgA antibody as sayOrdered By: Blue Rose on 12-04-2023 Chitobioside IgA IA Qn 53 units 0-90 [facility] Comment on above: Negative: <80 Equivo sam: 80-90 Positive: >90 Chocolate IgE serumOrdered B y: Blue Rose on 12-04-2023 Chocolate IgE Qn (S) <0.10 kU/L Class 0 [facility] Determination of erythrocyte mean corpuscular volume (MCV)Ordered By: Jonh Geiger on 12-04-2023 MCV (RBC) [Entitic vol] 93.5 fL 81-99 [facility] Erythrocyte distribution wid th ratioOrdered By: Jonh Geiger on 12-04-2023 Erythrocyte distribution width (RBC) [Ratio] 12.8 % 11.6-14.6 [facility] Erythrocyte distribution wid th standard deviationOrdered By: Jonh Geiger on 12-04-2023 Erythrocyte distribution width (RBC) [Entitic vol] 43.2 fL 35.1-43.9 [facility] Erythrocyte sedimentation ra teOrdered By: Blue Rose on 12-04-2023 ESR (Bld) [Velocity] 6 mm/h 0-30 [facility] Hematocrit Auto (Bld) [Volum e fraction]Ordered By: Jonh Geiger on 12-04-2023 Hematocrit (Bld) [Volume fraction] 39.0 % 37-47 [facility] Interpretation of serum or p lasma protein pattern by immunofixation (narrative resultOrdered By: Blue Rose on 12-04-2023 Protein Fractions Immunofixation Adrian [Interp] Not Observed g/dL Not Observed [facility] Laboratory - Chemistry and C hemistry - challengeOrdered By: Jonh Geiger on 12-04-2023 CO2 [Moles/Vol] 25.0 mmol/L 21.0-32.0 [facility] Urea nitrogen/Creatinine [Mass ratio] 7.9 mg/mg 10-20 [facility] Laboratory - Hematology and Cell countsOrdered By: Jonh Geiger on 12-04-2023 MCH (RBC) [Entitic mass] 30.5 pg 27.0-32.0 [facility] MCHC (RBC) [Mass/Vol] 32.6 g/dL 32-36 [facility] Platelet mean volume (Bld) [Entitic vol] 10.7 fL 6.2-12.0 [facility] Platelets (Bld) [#/Vol] 209 10*3/uL 150-450 [facility] Laboratory - Miscellaneous t estsOrdered By: Blue Rose on 12-04-2023 Laboratory comment Adrian (Report) Comment . [facility] Comment on above: Suggestive of Crohn' s Disease. Pattern is not conclusivefor disease behavior risk stratification. Service comment (Unsp spec) [Interp] Comment . [facility] Comment on above: Levels of Specific [...] Laminaribioside IgG IA Qn 30 units 0-60 [facility] Comment on above: Negative:<55 Equivoc al: 55-60 Positive: >60 No Panel InformationOrdered By: Blue Rose on 12-04-2023 Addendum Document Comment . [facility] Comment on above: Protein electrophore sis scan will follow via computer,mail, or hub lead delivery. Anti-Gliadin IgA Antibody 2 units 0-19 [facility] Comment on above: Negative 0 - 19 Weak Positive 20 - 30 Moderate to Strong Positive >30 Anti-Gliadin IgG Antibody 2 units 0-19 [facility] Comment on above: Negative 0 - 19 Weak Positive 20 - 30 Moderate to Strong Positive >30 Centromere B Antibody <0.2 AI 0.0-0.9 [facility] Endomysial IgA Antibody Negative Negative [facility] Immunoglobulin E 6 IU/mL 6-495 [facility] Immunoglobulin G4 30 mg/dL 2-96 [facility] Immunoglobulin M 163 mg/dL 26-217 [facility] LUZ-1 Antibody <0.2 AI 0.0-0.9 [facility] Mussel Allergen IgE Antibody <0.10 kU/L Class 0 [facility] LEVI MAKER Antibody <0.2 AI 0.0-0.9 [facility] Saccharomyces cerevisiae (Joshua)IgG 99 units 0-50 [facility] Comment on above: Negative: <45 Equivo sam: 45-50 Positive: >50 Shrimp Allergen <0.10 kU/L Class 0 [facility] SM Antibody <0.2 AI 0.0-0.9 [facility] SS-A/Ro IgG Antibody < 0.2 AI 0.0-0.9 [facility] SS-B/La IgG Antibody < 0.2 AI 0.0-0.9 [facility] Tissue Transglutaminase IgG Ab <2 U/mL 0-5 [facility] Comment on above: Negative 0 - 5 Weak Positive 6 - 9 Positive >9 C-Reactive Protein Extended Range 6.61 mg/L 0.0-3.0 [facility] Comment on above: C-Reactive Protein ( CRP) provides useful information for thediagnosis, therapy and monitoring of inflammatory processesand associated diseases. For the evaluation of Relative Riskfor Cardiovascular Disease, a High Sensitivity CRP (HSCRP)should be ordered. No Panel InformationOrdered By: Jonh Geiger on 12-04-2023 Estimated Creatinine Clearance Calc 74.33 ml/min [facility] Estimated GFR (MDRD) Amer 77 mL/min >60 [facility] Comment on above: GFR Calc Estimated GFR (MDRD) Non-Af Amer 63 mL/min >60 [facility] Comment on above: Non- GFR Calc RBC Auto (Bld) [#/Vol]Ordere d By: Jonh Geiger on 12-04-2023 RBC (Bld) [#/Vol] 4.17 10*6/uL 4.2-5.4 [facility] Serum DNA double strand anti body assay (units/volume)Ordered By: Blue Rose on 12-04-2023 DNA double strand Ab Qn (S) 1 [IU]/mL 0-9 [facility] Comment on above: Negative <5 Equivoca l 5 - 9 Positive >9 Serum IgG subclass 1 measure ment (mass/volume)Ordered By: Blue Rose on 12-04-2023 IgG subclass 1 (S) [Mass/Vol] 706 mg/dL 248-810 [facility] Serum IgG subclass 2 measure ment (mass/volume)Ordered By: Blue Rose on 12-04-2023 IgG subclass 2 (S) [Mass/Vol] 342 mg/dL 130-555 [facility] Serum IgG subclass 3 measure ment (mass/volume)Ordered By: Blue Rose on 12-04-2023 IgG subclass 3 (S) [Mass/Vol] 22 mg/dL 15-102 [facility] Serum Scl-70 antibody assay (units/volume)Ordered By: Blue Rose on 12-04-2023 SCL-70 extractable nuclear Ab Qn (S) <0.2 AI 0.0-0.9 [facility] Serum [id number] measu rement by electrophoresisOrdered By: Blue Rose on 12-04-2023 Alpha 1 globulin Elph [Mass/Vol] 0.2 g/dL 0.0-0.4 [facility] Alpha 1 globulin Elph [Mass/Vol] 0.7 g/dL 0.4-1.0 [facility] Serum beef IgE antibody assa y (units/volume)Ordered By: Blue Rose on 12-04-2023 Beef IgE Qn (S) <0.10 kU/L Class 0 [facility] Serum classic neutrophil cyt oplasmic antibody assay (units/volume)Ordered By: Blue Rose on 12-04-2023 Neutrophil cytoplasmic Ab.classic Qn (S) <1:20 titer Neg:<1:20 [facility] Serum codfish IgE antibody a ssay (units/volume)Ordered By: Blue Rose on 12-04-2023 Codfish IgE Qn (S) <0.10 kU/L Class 0 [facility] Serum corn IgE antibody assa y (units/volume)Ordered By: Blue Rose on 12-04-2023 [place] IgE Qn (S) <0.10 kU/L Class 0 [facility] Serum cow milk IgE antibody assay (units/volume)Ordered By: Blue Rose on 12-04-2023 Cow milk IgE Qn (S) <0.10 kU/L Class 0 [facility] Serum globulin measurement ( mass/volume)Ordered By: Blue Rose on 12-04-2023 Globulin (S) [Mass/Vol] 3.0 g/dL 2.2-3.9 [facility] Serum or plasma IgA measurem ent (mass/volume)Ordered By: Blue Rose on 12-04-2023 IgA [Mass/Vol] 122 mg/dL 87-352 [facility] Serum or plasma IgG measurem ent (mass/volume)Ordered By: Blue Rose on 12-04-2023 IgG [Mass/Vol] 1049 mg/dL 586-1602 [facility] IgG [Mass/Vol] Not Reportable [facility] Serum or plasma beta globuli n measurement by electrophoresis (mass/volume)Ordered By: Blue Rose on 12-04-2023 Beta globulin Elph [Mass/Vol] 1.0 g/dL 0.7-1.3 [facility] Serum or plasma calcium shelley urement (mass/volume)Ordered By: Jonh Geiger on 12-04-2023 Calcium [Mass/Vol] 8.8 mg/dL 8.5-10.1 [facility] Serum or plasma creatinine m easurement (mass/volume)Ordered By: Jonh Geiger on 12-04-2023 Creatinine [Mass/Vol] 1.01 mg/dL 0.55-1.02 [facility] Comment on above: The validity of the calculated GFR & GFRAA in patients over 70 years has not been determined. Clinical correlation is essential. Serum or plasma gamma globul in measurement by electrophoresis (mass/volume)Ordered By: Blue Rose on 12-04-2023 Gamma globulin Elph [Mass/Vol] 1.2 g/dL 0.4-1.8 [facility] Serum or plasma gastrin shelley urement (mass/volume)Ordered By: Blue Rose on 12-04-2023 Gastrin [Mass/Vol] 43 pg/mL 0-115 [facility] Comment on above: Siemens Immulite 200 0 Immunochemiluminometric assay (ICMA)Values obtained with different assay methods or kits cannotbe used interchangeably. Results cannot be interpreted asabsolute evidence of the presence or absence of malignantdisease. Serum or plasma immunoelectr ophoresis interpretation (nominal result)Ordered By: Blue Rose on 12-04-2023 Interpretation IEP [Interp] Comment . [facility] Comment on above: No monoclonality det ected. Serum or plasma mannobioside IgG antibody assay by immunoassay (units/volume)Ordered By: Blue Rose on 12-04-2023 Mannobioside IgG IA Qn 74 units 0-100 [facility] Comment on above: Negative: <90 Equivo sam: 90-100 Positive: >100 This test was developed and its performance characteristics determined by [employer]. It has not been cleared or approved by the Food and Drug Administration. The FDA has determined that such clearance or approval is not necessary. Serum or plasma urea nitroge n measurement (mass/volume)Ordered By: Jonh Geiger on 12-04-2023 Urea nitrogen [Mass/Vol] 8 mg/dL 7-18 [facility] Serum peanut IgE antibody as say (units/volume)Ordered By: Blue Rose on 12-04-2023 Peanut IgE Qn (S) <0.10 kU/L Class 0 [facility] Serum perinuclear neutrophil cytoplasmic antibody titer by immunofluorescenceOrdered By: Blue Rose on 12-04-2023 Neutrophil cytoplasmic Ab.perinuclear IF (S) [Titer] <1:20 titer Neg:<1:20 [facility] Comment on above: The presence of posi tive fluorescence exhibiting P-ANCA orC-ANCA patterns alone is not specific for the diagnosis ofWegener's Granulomatosis (WG) or microscopic polyangiitis.Decisions about treatment should not be based solely onANCA IFA results. The [employer] ANCA Group Consensusrecommends follow up testing of positive sera with both WV-3 and MPO-ANCA enzyme immunoassays. As many as 5% serumsamples are positive only by EIA. Ref. AM J Clin Kigncg6041;111:507-513. Serum pork IgE antibody assa y (units/volume)Ordered By: Blue Rose on 12-04-2023 Pork IgE Qn (S) <0.10 kU/L Class 0 [facility] Serum salmon IgE antibody as say (units/volume)Ordered By: Blue Rose on 12-04-2023 [place] IgE Qn (S) <0.10 kU/L Class 0 [facility] Serum soybean IgE antibody a ssay (units/volume)Ordered By: Blue Rose on 12-04-2023 Soybean IgE Qn (S) <0.10 kU/L Class 0 [facility] Serum tissue transglutaminas e IgA antibody assay (units/volume)Ordered By: Blue Rose on 12-04-2023 tTG IgA Qn (S) <2 U/mL 0-3 [facility] Comment on above: Negative 0 - 3 Weak Positive 4 - 10 Positive >10 Tissue Transglutaminase (tTG) has been identified as the endomysial antigen. Studies have demonstr- ated that endomysial IgA antibodies have over 99% specificity for gluten sensitive enteropathy. Serum tuna IgE antibody assa y (units/volume)Ordered By: Blue Rose on 12-04-2023 Tuna IgE Qn (S) <0.10 kU/L Class 0 [facility] Serum wheat IgE antibody ass ay (units/volume)Ordered By: Blue Rose on 12-04-2023 Wheat IgE Qn (S) <0.10 kU/L Class 0 [facility] Serum whole egg IgE antibody assay (units/volume)Ordered By: Blue Rose on 12-04-2023 Whole Egg IgE Qn (S) <0.10 kU/L Class 0 [facility] Comment on above: Performed at: [facility] [id number] Director: Gama Figueroa PhD, Phone: [phone] at: [facility] [id number] Director: Jocelyn Ames MD, Phone: [phone] Thin prep Papanicolaou smear with manual screeningOrdered By: Blue Rose on 12-04-2023 Thin prep Papanicolaou smear with manual screening 38.4 ng/mL 0.0-101.8 [facility] Comment on above: Chromogranin A perfo rmed by [employer] KRYPTORmethodologyValues obtained with different assay methods or kits cannotbe used interchangeably.Performed at: [facility] [address] [id number] Director: Gama Figueroa PhD, Phone: [phone] at: [facility] [id number] Director: Jocelyn Ames MD, Phone: [phone] Thin prep Papanicolaou smear with manual screening 1.3 0.7-1.7 [facility] Thin prep Papanicolaou smear with manual screeningOrdered By: Jonh Geiger on 12-04-2023 Thin prep Papanicolaou smear with manual screening 5 5-15 [facility] Total protein bloodOrdered B y: Blue Rose on 12-04-2023 Protein [Mass/Vol] 6.6 g/dL 6.0-8.5 [facility] Absolute lymphocyte countOrd ered By: Brina Quinteros on 12-03-2023 Lymphocytes Auto (Unsp spec) [#/Vol] 3.76 10*3/uL 0.83-4.51 [facility] Automated lymphocyte count a s percentage of total leukocytesOrdered By: Brina Quinteros on 12-03-2023 Lymphocytes/100 WBC Auto (Unsp spec) 44.6 % 19-41 [facility] Basophil percentageOrdered B y: Brina Quinteros on 12-03-2023 Basophils/100 WBC (Bld) 0.7 % 0-1 [facility] Bilirubin [Mass/Vol] 0.60 mg/dL 0.20-1.00 [facility] Comment on above: For patients on eltr ombopag therapy, use of Dimension Lutz TBIL is not recommended. Chloride [Moles/Vol] 108 mmol/L 98-107 [facility] Eosinophils/100 WBC (Bld) 2.0 % 0-5 [facility] Glucose [Mass/Vol] 103 mg/dL 74-106 [facility] Comment on above: Fasting Glucose resu lt from 100 to 125 mg/dL suggests IMPAIRED HOMEOSTASIS per A.D.A. criteria. Hemoglobin (Bld) [Mass/Vol] 13.0 g/dL 12.0-15.0 [facility] Monocytes/100 WBC (Bld) 6.8 % 0-10 [facility] Neutrophils (Bld) [#/Vol] 3.8 10*3/uL 2.0-7.7 [facility] Neutrophils/100 WBC (Bld) 45.2 % 47-70 [facility] Potassium [Moles/Vol] 3.6 mmol/L 3.5-5.1 [facility] Protein [Mass/Vol] 7.5 g/dL 6.4-8.2 [facility] Sodium [Moles/Vol] 139 mmol/L 136-145 [facility] WBC (Bld) [#/Vol] 8.4 10*3/uL 4.4-11.0 [facility] Determination of erythrocyte mean corpuscular volume (MCV)Ordered By: Brina Quinteros on 12-03-2023 MCV (RBC) [Entitic vol] 92.3 fL 81-99 [facility] Erythrocyte distribution wid th ratioOrdered By: Brina Quinteros on 12-03-2023 Erythrocyte distribution width (RBC) [Ratio] 12.4 % 11.6-14.6 [facility] Erythrocyte distribution wid th standard deviationOrdered By: Brina Quinteros on 12-03-2023 Erythrocyte distribution width (RBC) [Entitic vol] 42.4 fL 35.1-43.9 [facility] Hematocrit Auto (Bld) [Volum e fraction]Ordered By: Brina Quinteros on 12-03-2023 Hematocrit (Bld) [Volume fraction] 40.5 % 37-47 [facility] Immature granulocytes/100 WB C Auto (Bld)Ordered By: Brinashiva Quinteros on 12-03-2023 Immature granulocytes/100 WBC (Bld) 0.700 % 0.0-0.9 [facility] Comment on above: IG% - Immature Granu locytes (promyelocytes, myelocytes and metamyelocytes) > 1% indicates that a LEFT SHIFT is Present. Laboratory - Chemistry and C hemistry - challengeOrdered By: Brinashiva Quinteros on 12-03-2023 Albumin/Globulin [Mass ratio] 1.1 {ratio} 0.9-2.4 [facility] ALP [Catalytic activity/Vol] 102 U/L 45-117 [facility] ALT [Catalytic activity/Vol] 35 U/L 13-56 [facility] CO2 [Moles/Vol] 25.0 mmol/L 21.0-32.0 [facility] Globulin (S) [Mass/Vol] 3.6 g/dL 2.2-4.2 [facility] Lipase [Catalytic activity/Vol] 37 U/L 13-75 [facility] Comment on above: Please note:LIPASE r evised reference range effective 22. New Lipase methodology. Expected to produce lower values than the previous assay method. NEW Reference Range: 13 - 75 U/L Urea nitrogen/Creatinine [Mass ratio] 9.8 mg/mg 10-20 [facility] Laboratory - Hematology and Cell countsOrdered By: Brina Quinteros on 12-03-2023 MCH (RBC) [Entitic mass] 29.6 pg 27.0-32.0 [facility] MCHC (RBC) [Mass/Vol] 32.1 g/dL 32-36 [facility] Nucleated RBC/100 WBC (Bld) [Ratio] 0 % 0-5 [facility] Platelet mean volume (Bld) [Entitic vol] 11.3 fL 6.2-12.0 [facility] Platelets (Bld) [#/Vol] 261 10*3/uL 150-450 [facility] No Panel InformationOrdered By: Brina Quinteros on 12-03-2023 Estimated Creatinine Clearance Calc 73.96 ml/min [facility] Estimated GFR (MDRD) Amer 76 mL/min >60 [facility] Comment on above: GFR Calc Estimated GFR (MDRD) Non-Af Amer 63 mL/min >60 [facility] Comment on above: Non- GFR Calc RBC Auto (Bld) [#/Vol]Ordere d By: Brina Quinteros on 12-03-2023 RBC (Bld) [#/Vol] 4.39 10*6/uL 4.2-5.4 [facility] Serum or plasma calcium shelley urement (mass/volume)Ordered By: Brina Quinteros on 12-03-2023 Calcium [Mass/Vol] 9.4 mg/dL 8.5-10.1 [facility] Serum or plasma creatinine m easurement (mass/volume)Ordered By: Brina Quinteros on 12-03-2023 Creatinine [Mass/Vol] 1.02 mg/dL 0.55-1.02 [facility] Comment on above: The validity of the calculated GFR & GFRAA in patients over 70 years has not been determined. Clinical correlation is essential. Serum or plasma urea nitroge n measurement (mass/volume)Ordered By: Brina Quinteros on 12-03-2023 Urea nitrogen [Mass/Vol] 10 mg/dL 7-18 [facility] Thin prep Papanicolaou smear with manual screeningOrdered By: Brina Quinteros on 12-03-2023 Thin prep Papanicolaou smear with manual screening 3.9 g/dL 3.2-5.0 [facility] Thin prep Papanicolaou smear with manual screening 20 U/L 15-37 [facility] Thin prep Papanicolaou smear with manual screening 6 5-15 [facility] XR Chest PA and Lateralon IMPRESSION: No acute radiographic abnormality. [employer] Supervisor: HERMINIO Transcribe Date/Time: Oct 09 2023 7:44P Dictated by : SHY SHEA MD This examination was interpreted and the report reviewed and electronically signed by: SHY SHEA MD on Oct 09 2023 7:44PM [facility] DIVISION OF RADIOLOGY * * *Final Report* [...] soft tissues: Unremarkable. DIVISION OF RADIOLOGY Provider, [facility] - 10/09/2023 * * *Final Report* * [...] Unremarkable. IMPRESSION IMPRESSION: No acute radiographic abnormality. [place] [employer] Supervisor: HERMINIO Transcribe Date/Time: Oct 09 2023 7:44P Dictated by : SHY SHEA MD This examination was interpreted and the report reviewed and electronically signed by: SHY SHEA MD on Oct 09 2023 7:44PM EST [facility] Radiology Study observation (narrative) [facility] XR Chest PA and LateralOrder ed By: Ccf Provider on 10-09-[address] [facility] XR Chest PA and Lateralon IMPRESSION: Stable exam with no acute radiographic abnormality. [place] [employer] Supervisor: PSCB Transcribe Date/Time: Sep 10 2023 5:42P [...] soft tissues: Unremarkable. DIVISION OF RADIOLOGY Provider, [facility] - 09/10/2023 * * *Final Report* * [...] Stable exam with no acute radiographic abnormality. [place] Supervisor: PSCB Transcribe Date/Time: Sep 10 2023 5:42P Dictated by : SHANNON PICKETT MD This examination was interpreted and the report reviewed and electronically signed by: SHANNON PICKETT MD on Sep 10 2023 5:42PM EST [facility] Radiology Study observation (narrative) [facility] XR Chest PA and LateralOrder ed By: Ccf Provider on 09-10-[address] [facility] XR HAND GENERAL 3V PA/LAT/OB L RIGHTon 08-18-[address] [facility] XR Hand - right PA and Later al and Obliqueon 08-18-2023 IMPRESSION: Unremark able right hand x-ray. [employer] Supervisor: HERMINIO Transcribe Date/Time: Aug 18 2023 2:52P [...] soft tissue swelling. [facility]Y [facility] * * *Final Report* * [...] swelling. IMPRESSION IMPRESSION: Unremarkable right hand x-ray. [place] Supervisor: HERMINIO Transcribe Date/Time: Aug 18 2023 2:52P Dictated by : KORI BLANKENSHIP MD This examination was interpreted and the report reviewed and electronically signed by: KORI BLANKENSHIP MD on Aug 18 2023 2:58PM EST [facility] Rad[facility]narrative[facility] - right PA and Later al and ObliqueOrdered By: Ccf Provider on 08-18-[address] [facility] Absolute lymphocyte countOrd ered By: Vasiliy Mcdermott on 07-22-2023 Lymphocytes Auto (Unsp spec) [#/Vol] 3.07 10*3/uL 0.83-4.51 [facility] Basophil percentageOrdered B y: Vasiliy Mcdermott on 07-22-2023 Basophils/100 WBC (Bld) 0.6 % 0-1 [facility] Chloride [Moles/Vol] 107 mmol/L 98-107 [facility] Eosinophils/100 WBC (Bld) 3.2 % 0-5 [facility] Glucose [Mass/Vol] 119 mg/dL 74-106 [facility] Comment on above: Fasting Glucose resu lt from 100 to 125 mg/dL suggests IMPAIRED HOMEOSTASIS per A.D.A. criteria. Neutrophils (Bld) [#/Vol] 4.4 10*3/uL 2.0-7.7 [facility] Neutrophils/100 WBC (Bld) 52.5 % 47-70 [facility] Potassium [Moles/Vol] 3.7 mmol/L 3.5-5.1 [facility] Sodium [Moles/Vol] 138 mmol/L 136-145 [facility] WBC (Bld) [#/Vol] 8.3 10*3/uL 4.4-11.0 [facility] Blood erythrocytes count (nu mber/volume)Ordered By: Vasiliy Mcdermott on 07-22-2023 RBC (Bld) [#/Vol] 4.19 10*6/uL 4.2-5.4 [facility] Blood hemoglobin measurement (mass/volume)Ordered By: Vasiliy Mcdermott on 07-22-2023 Hemoglobin (Bld) [Mass/Vol] 12.7 g/dL 12.0-15.0 [facility] Blood lymphocytes/100 leukoc ytesOrdered By: Vasiliy Mcdermott on 07-22-2023 Lymphocytes/100 WBC (Bld) 36.9 % 19-41 [facility] Blood monocytes/100 leukocyt esOrdered By: Vasiliy Mcdermott on 07-22-2023 Monocytes/100 WBC (Bld) 6.0 % 0-10 [facility] Blood platelet mean volumeOr dered By: Vasiliy Mcdermott on 07-22-2023 Platelet mean volume (Bld) [Entitic vol] 10.8 fL 6.2-12.0 [facility] Determination of erythrocyte mean corpuscular volume (MCV)Ordered By: Vasiliy Mcdermott on 07-22-2023 MCV (RBC) [Entitic vol] 92.8 fL 81-99 [facility] Hematocrit Auto (Bld) [Volum e fraction]Ordered By: Strafford Sharron on 07-22-2023 Hematocrit (Bld) [Volume fraction] 38.9 % 37-47 [facility] Influenza virus A and B and SARS-CoV-2 (COVID-19) Ag panel - Upper respiratory specimOrdered By: Vasiliy Mcdermott on 07-22-2023 SARS-CoV-2 (COVID-19) RNA ABRAM+probe Ql (Resp) [facility] - Chemistry and C hemistry - challengeOrdered By: Vasiliy Mcdermott on 07-22-2023 CO2 [Moles/Vol] 30.0 mmol/L 21.0-32.0 [facility] Urea nitrogen/Creatinine [Mass ratio] 12.3 mg/mg 10-20 [facility] - Hematology and Cell countsOrdered By: Vasiliy Mcdermott on 07-22-2023 Erythrocyte distribution width (RBC) [Entitic vol] 43.5 fL 35.1-43.9 [facility] Erythrocyte distribution width (RBC) [Ratio] 12.9 % 11.6-14.6 [facility] Immature granulocytes/100 WBC (Bld) 0.800 % 0.0-0.9 [facility] Comment on above: IG% - Immature Granu locytes (promyelocytes, myelocytes and metamyelocytes) > 1% indicates that a LEFT SHIFT is Present. MCH (RBC) [Entitic mass] 30.3 pg 27.0-32.0 [facility] Nucleated RBC/100 WBC (Bld) [Ratio] 0 % 0-5 [facility] MCHC Auto (RBC) [Mass/Vol]Or dered By: Vasiliy Mcdermott on 07-22-2023 MCHC (RBC) [Mass/Vol] 32.6 g/dL 32-36 [facility] No Panel InformationOrdered By: Vasiliy Mcdermott on 07-22-2023 Estimated Creatinine Clearance Calc 48.02 ml/min [facility] Estimated GFR (MDRD) Amer 67 mL/min >60 [facility] Comment on above: GFR Calc Estimated GFR (MDRD) Non-Af Amer 55 mL/min >60 [facility] Comment on above: Non- GFR Calc Platelets bldOrdered By: Fanny Mcdermott on 07-22-2023 Platelets (Bld) [#/Vol] 232 10*3/uL 150-450 [facility] Serum or plasma calcium shelley urement (mass/volume)Ordered By: Vasiliy Mcdermott on 07-22-2023 Calcium [Mass/Vol] 8.8 mg/dL 8.5-10.1 [facility] Serum or plasma creatinine m easurement (mass/volume)Ordered By: Vasiliy Mcdermott on 07-22-2023 Creatinine [Mass/Vol] 1.14 mg/dL 0.55-1.02 [facility] Comment on above: The validity of the calculated GFR & GFRAA in patients over 70 years has not been determined. Clinical correlation is essential. Serum or plasma urea nitroge n measurement (mass/volume)Ordered By: Vasiliy Mcdermott on 07-22-2023 Urea nitrogen [Mass/Vol] 14 mg/dL 7-18 [facility] Thin prep Papanicolaou smear with manual screeningOrdered By: Vasiliy Mcdermott on 07-22-2023 Thin prep Papanicolaou smear with manual screening 1 5-15 [facility] Upper respiratory specimen i nfluenza A virus, influenza B virus, and severe acute resOrdered By: Vasiliy Mcdermott on 07-22-2023 Upper respiratory specimen influenza A virus, influenza B virus, and severe acute res [facility] Absolute lymphocyte countOrd ered By: Vikram Dominguez on 06-11-2023 Lymphocytes Auto (Unsp spec) [#/Vol] 3.53 10*3/uL 0.83-4.51 [facility] Basophil percentageOrdered B y: Vikram Dominguez on 06-11-2023 Basophils/100 WBC (Bld) 0.7 % 0-1 [facility] Bilirubin [Mass/Vol] 0.30 mg/dL 0.20-1.00 [facility] Comment on above: For patients on eltr ombopag therapy, use of Dimension Lutz TBIL is not recommended. Chloride [Moles/Vol] 107 mmol/L 98-107 [facility] Eosinophils/100 WBC (Bld) 2.8 % 0-5 [facility] Glucose [Mass/Vol] 105 mg/dL 74-106 [facility] Comment on above: Fasting Glucose resu lt from 100 to 125 mg/dL suggests IMPAIRED HOMEOSTASIS per A.D.A. criteria. Neutrophils (Bld) [#/Vol] 4.4 10*3/uL 2.0-7.7 [facility] Neutrophils/100 WBC (Bld) 50.0 % 47-70 [facility] Potassium [Moles/Vol] 3.9 mmol/L 3.5-5.1 [facility] Comment on above: Slight Hemolysis, Re sult may be falsely increased. Protein [Mass/Vol] 7.2 g/dL 6.4-8.2 [facility] Sodium [Moles/Vol] 138 mmol/L 136-145 [facility] WBC (Bld) [#/Vol] 8.8 10*3/uL 4.4-11.0 [facility] Blood erythrocytes count (nu mber/volume)Ordered By: Vikram Dominguez on 06-11-2023 RBC (Bld) [#/Vol] 4.16 10*6/uL 4.2-5.4 [facility] Blood hemoglobin measurement (mass/volume)Ordered By: Vikram Dominguez on 06-11-2023 Hemoglobin (Bld) [Mass/Vol] 12.3 g/dL 12.0-15.0 [facility] Blood lymphocytes/100 leukoc ytesOrdered By: Vikram Dominguez on 06-11-2023 Lymphocytes/100 WBC (Bld) 39.9 % 19-41 [facility] Blood monocytes/100 leukocyt esOrdered By: Vikram Dominguez on 06-11-2023 Monocytes/100 WBC (Bld) 5.7 % 0-10 [facility] Blood platelet mean volumeOr dered By: Vikram Dominguez on 06-11-2023 Platelet mean volume (Bld) [Entitic vol] 10.5 fL 6.2-12.0 [facility] Determination of erythrocyte mean corpuscular volume (MCV)Ordered By: Vikram Dominguez on 06-11-2023 MCV (RBC) [Entitic vol] 92.8 fL 81-99 [facility] Direct bilirubinOrdered By: Vikram Dominguez on 06-11-2023 Bilirubin.direct [Mass/Vol] 0.08 mg/dL 0.00-0.30 [facility] Hematocrit Auto (Bld) [Volum e fraction]Ordered By: Vikram Dominguez on 06-11-2023 Hematocrit (Bld) [Volume fraction] 38.6 % 37-47 [facility] - Chemistry and C hemistry - challengeOrdered By: Vikram Dominguez on 06-11-2023 ALP [Catalytic activity/Vol] 105 U/L 45-117 [facility] ALT [Catalytic activity/Vol] 37 U/L 13-56 [facility] CO2 [Moles/Vol] 27.0 mmol/L 21.0-32.0 [facility] Globulin (S) [Mass/Vol] 3.5 g/dL 2.2-4.2 [facility] Lipase [Catalytic activity/Vol] 42 U/L 13-75 [facility] Comment on above: Please note:LIPASE r evised reference range effective 22. New Lipase methodology. Expected to produce lower values than the previous assay method. NEW Reference Range: 13 - 75 U/L Urea nitrogen/Creatinine [Mass ratio] 10.5 mg/mg 10-20 [facility] - Hematology and Cell countsOrdered By: Vikram Dominguez on 06-11-2023 Erythrocyte distribution width (RBC) [Entitic vol] 45.4 fL 35.1-43.9 [facility] Erythrocyte distribution width (RBC) [Ratio] 13.4 % 11.6-14.6 [facility] Immature granulocytes/100 WBC (Bld) 0.900 % 0.0-0.9 [facility] Comment on above: IG% - Immature Granu locytes (promyelocytes, myelocytes and metamyelocytes) > 1% indicates that a LEFT SHIFT is Present. MCH (RBC) [Entitic mass] 29.6 pg 27.0-32.0 [facility] Nucleated RBC/100 WBC (Bld) [Ratio] 0 % 0-5 [facility] MCHC Auto (RBC) [Mass/Vol]Or dered By: Vikram Dominguez on 06-11-2023 MCHC (RBC) [Mass/Vol] 31.9 g/dL 32-36 [facility] No Panel InformationOrdered By: Vikram Dominguez on 06-11-2023 Estimated GFR (MDRD) Amer 73 mL/min >60 [facility] Comment on above: GFR Calc Estimated GFR (MDRD) Non-Af Amer 61 mL/min >60 [facility] Comment on above: Non- GFR Calc Troponin I High Sensitivity 4 pg/mL 3.0-54.0 [facility] Comment on above: Please Note: New Maru t Units and Gender Specific Reference Ranges. For more information see Policy Stat Procedure Lutz High Sensitivity Troponin (TNIH) and attachments. Platelets bldOrdered By: Weston Dominguez on 06-11-2023 Platelets (Bld) [#/Vol] 249 10*3/uL 150-450 [facility] Serum or plasma albumin shelley urement (mass/volume)Ordered By: Vikram Dominguez on 06-11-2023 Albumin [Mass/Vol] 3.7 g/dL 3.2-5.0 [facility] Serum or plasma calcium shelley urement (mass/volume)Ordered By: Vikram Dominguez on 06-11-2023 Calcium [Mass/Vol] 9.0 mg/dL 8.5-10.1 [facility] Serum or plasma creatinine m easurement (mass/volume)Ordered By: Vikram Dominguez on 06-11-2023 Creatinine [Mass/Vol] 1.05 mg/dL 0.55-1.02 [facility] Comment on above: The validity of the calculated GFR & GFRAA in patients over 70 years has not been determined. Clinical correlation is essential. Serum or plasma urea nitroge n measurement (mass/volume)Ordered By: Vikram Dominguez on 06-11-2023 Urea nitrogen [Mass/Vol] 11 mg/dL 7-18 [facility] Thin prep Papanicolaou smear with manual screeningOrdered By: Vikram Dominguez on 06-11-2023 Thin prep Papanicolaou smear with manual screening 22 U/L 15-37 [facility] Comment on above: Slight Hemolysis, Re sult may be falsely increased. Thin prep Papanicolaou smear with manual screening 4 5-15 [facility] Absolute lymphocyte countOrd ered By: Vikram Dominguez on 05-04-2023 Lymphocytes Auto (Unsp spec) [#/Vol] 3.36 10*3/uL 0.83-4.51 [facility] Basophil percentageOrdered B y: Vikram Dominguez on 05-04-2023 Basophil percentage 0 SEEN /hpf 0-5 [facility] Basophils/100 WBC (Bld) 0.8 % 0-1 [facility] Bilirubin [Mass/Vol] 0.40 mg/dL 0.20-1.00 [facility] Comment on above: For patients on eltr ombopag therapy, use of Dimension Lutz TBIL is not recommended. Chloride [Moles/Vol] 108 mmol/L 98-107 [facility] Eosinophils/100 WBC (Bld) 2.9 % 0-5 [facility] Glucose [Mass/Vol] 110 mg/dL 74-106 [facility] Comment on above: Fasting Glucose resu lt from 100 to 125 mg/dL suggests IMPAIRED HOMEOSTASIS per A.D.A. criteria. Neutrophils (Bld) [#/Vol] 3.6 10*3/uL 2.0-7.7 [facility] Neutrophils/100 WBC (Bld) 46.3 % 47-70 [facility] Potassium [Moles/Vol] 3.4 mmol/L 3.5-5.1 [facility] Comment on above: Slight Hemolysis, Re sult may be falsely increased. Protein [Mass/Vol] 7.8 g/dL 6.4-8.2 [facility] Sodium [Moles/Vol] 139 mmol/L 136-145 [facility] WBC (Bld) [#/Vol] 7.8 10*3/uL 4.4-11.0 [facility] Beta hCG serum qualOrdered B y: Vikram Dominguez on 05-04-2023 Beta HCG ( test) Ql Negative [facility] Bilirubin Test strip Ql (U)O rdered By: Vikram Dominguez on 05-04-2023 Bilirubin Ql (U) Negative Negative [facility] Blood erythrocytes count (nu mber/volume)Ordered By: Vikram Dominguez on 05-04-2023 RBC (Bld) [#/Vol] 4.35 10*6/uL 4.2-5.4 [facility] Blood hemoglobin measurement (mass/volume)Ordered By: Vikram Dominguez on 05-04-2023 Hemoglobin (Bld) [Mass/Vol] 13.2 g/dL 12.0-15.0 [facility] Blood lymphocytes/100 leukoc ytesOrdered By: Vikram Dominguez on 05-04-2023 Lymphocytes/100 WBC (Bld) 43.0 % 19-41 [facility] Blood monocytes/100 leukocyt esOrdered By: Vikram Dominguez on 05-04-2023 Monocytes/100 WBC (Bld) 6.4 % 0-10 [facility] Blood platelet mean volumeOr dered By: Vikram Dominguez on 05-04-2023 Platelet mean volume (Bld) [Entitic vol] 11.2 fL 6.2-12.0 [facility] Determination of erythrocyte mean corpuscular volume (MCV)Ordered By: Vikram Dominguez on 05-04-2023 MCV (RBC) [Entitic vol] 92.9 fL 81-99 [facility] Hematocrit Auto (Bld) [Volum e fraction]Ordered By: Vikram Dominguez on 05-04-2023 Hematocrit (Bld) [Volume fraction] 40.4 % 37-47 [facility] Ketones Test strip Ql (U)Ord ered By: Vikram Dominguez on 05-04-2023 Ketones Ql (U) Negative Negative [facility] - Chemistry and C hemistry - challengeOrdered By: Vikram Dominguez on 05-04-2023 ALP [Catalytic activity/Vol] 122 U/L 45-117 [facility] ALT [Catalytic activity/Vol] 25 U/L 13-56 [facility] CO2 [Moles/Vol] 26.0 mmol/L 21.0-32.0 [facility] Globulin (S) [Mass/Vol] 3.8 g/dL 2.2-4.2 [facility] Lipase [Catalytic activity/Vol] 35 U/L 13-75 [facility] Comment on above: Please note:LIPASE r evised reference range effective 22. New Lipase methodology. Expected to produce lower values than the previous assay method. NEW Reference Range: 13 - 75 U/L Urea nitrogen/Creatinine [Mass ratio] 8.4 mg/mg 10-20 [facility] - Hematology and Cell countsOrdered By: Vikram Dominguez on 05-04-2023 Erythrocyte distribution width (RBC) [Entitic vol] 44.4 fL 35.1-43.9 [facility] Erythrocyte distribution width (RBC) [Ratio] 13.1 % 11.6-14.6 [facility] Immature granulocytes/100 WBC (Bld) 0.600 % 0.0-0.9 [facility] Comment on above: IG% - Immature Granu locytes (promyelocytes, myelocytes and metamyelocytes) > 1% indicates that a LEFT SHIFT is Present. MCH (RBC) [Entitic mass] 30.3 pg 27.0-32.0 [facility] Nucleated RBC/100 WBC (Bld) [Ratio] 0 % 0-5 [facility] MCHC Auto (RBC) [Mass/Vol]Or dered By: Vikram Dominguez on 05-04-2023 MCHC (RBC) [Mass/Vol] 32.7 g/dL 32-36 [facility] Mucus LM Ql (Urine sed)Order ed By: Vikram Dominguez on 05-04-2023 Mucus Ql (Urine sed) 0 SEEN /hpf [facility] Nitrite Test strip Ql (U)Ord ered By: Vikram Dominguez on 05-04-2023 Nitrite Ql (U) Negative Negative [facility] No Panel InformationOrdered By: Vikram Dominguez on 05-04-2023 Estimated Creatinine Clearance Calc 46.00 ml/min [facility] Estimated GFR (MDRD) Amer 64 mL/min >60 [facility] Comment on above: GFR Calc Estimated GFR (MDRD) Non-Af Amer 53 mL/min >60 [facility] Comment on above: Non- GFR Calc Platelets bldOrdered By: Weston Dominguez on 05-04-2023 Platelets (Bld) [#/Vol] 248 10*3/uL 150-450 [facility] Protein Test strip Ql (U)Ord ered By: Vikram Dominguez on 05-04-2023 Protein Ql (U) Negative Negative [facility] Serum or plasma albumin shelley urement (mass/volume)Ordered By: Vikram Dominguez on 05-04-2023 Albumin [Mass/Vol] 4.0 g/dL 3.2-5.0 [facility] Serum or plasma albumin/glob ulin mass ratioOrdered By: Vikram Dominguez on 05-04-2023 Albumin/Globulin [Mass ratio] 1.1 {ratio} 0.9-2.4 [facility] Serum or plasma calcium shelley urement (mass/volume)Ordered By: Vikram Dominguez on 05-04-2023 Calcium [Mass/Vol] 8.6 mg/dL 8.5-10.1 [facility] Serum or plasma creatinine m easurement (mass/volume)Ordered By: Vikram Dominguez on 05-04-2023 Creatinine [Mass/Vol] 1.19 mg/dL 0.55-1.02 [facility] Comment on above: The validity of the calculated GFR & GFRAA in patients over 70 years has not been determined. Clinical correlation is essential. Serum or plasma urea nitroge n measurement (mass/volume)Ordered By: Vikram Dominguez on 05-04-2023 Urea nitrogen [Mass/Vol] 10 mg/dL 7-18 [facility] Squamous epithelial cells de tection in urine sediment by light microscopyOrdered By: Vikram Dominguez on 05-04-2023 Epithelial cells.squamous LM Ql (Urine sed) 10-25 SEEN /hpf 5-10 [facility] Thin prep Papanicolaou smear with manual screeningOrdered By: Vikram Dominguez on 05-04-2023 Thin prep Papanicolaou smear with manual screening 13 U/L 15-37 [facility] Comment on above: Slight Hemolysis, Re sult may be falsely increased. Thin prep Papanicolaou smear with manual screening 5 5-15 [facility] Urine blood detectionOrdered By: Vikram Dominguez on 05-04-2023 RBC Ql (U) Negative Negative [facility] RBC Ql (U) 0 SEEN /hpf 0-5 [facility] Urine clarityOrdered By: Weston Dominguez on 05-04-2023 Clarity (U) Sl. Cloudy Clear [facility] Urine color determinationOrd ered By: Vikram Dominguez on 05-04-2023 Color (U) Yellow Yellow [facility] Urine glucose detectionOrder ed By: Vikram Dominguez on 05-04-2023 Glucose Ql (U) Normal mg/dl Normal [facility] Urine leukocyte esterase det ection by dipstickOrdered By: Vikram Dominguez on 05-04-2023 Leukocyte esterase Test strip Ql (U) 25 /ul Negative [facility] Urine pHOrdered By: Vikram pacheco on 05-04-2023 pH (U) 6.0 [pH] 5.0 - 8.0 [facility] Urine sediment bacteria coun t by microscopy (number/high power field)Ordered By: Vikram Dominguez on 05-04-2023 Bacteria LM.HPF (Urine sed) [#/Area] 1 /[HPF] None Seen [facility] Urine specific gravity measu rementOrdered By: Vikram Dominguez on 05-04-2023 Specific gravity (U) [Rel density] 1.010 1.002-1.030 [facility] Urobilinogen Auto test strip Ql (U)Ordered By: Vikram Dominguez on 05-04-2023 Urobilinogen Ql (U) Normal mg/dl Normal [facility] Absolute lymphocyte countOrd ered By: Eleanor Borjas on 04-01-2023 Lymphocytes Auto (Unsp spec) [#/Vol] 3.17 10*3/uL 0.83-4.51 [facility] Basophil percentageOrdered B y: Eleanor Borjas on 04-01-2023 Basophil percentage 0-5 SEEN /hpf 0-5 [facility] Basophils/100 WBC (Bld) 0.6 % 0-1 [facility] Chloride [Moles/Vol] 107 mmol/L 98-107 [facility] Eosinophils/100 WBC (Bld) 3.4 % 0-5 [facility] Glucose [Mass/Vol] 94 mg/dL 74-106 [facility] Neutrophils (Bld) [#/Vol] 2.9 10*3/uL 2.0-7.7 [facility] Neutrophils/100 WBC (Bld) 43.0 % 47-70 [facility] Potassium [Moles/Vol] 3.9 mmol/L 3.5-5.1 [facility] Sodium [Moles/Vol] 139 mmol/L 136-145 [facility] WBC (Bld) [#/Vol] 6.8 10*3/uL 4.4-11.0 [facility] Bilirubin Test strip Ql (U)O rdered By: Eleanor Borjas on 04-01-2023 Bilirubin Ql (U) Negative Negative [facility] Blood erythrocytes count (nu mber/volume)Ordered By: Eleanor Borjas on 04-01-2023 RBC (Bld) [#/Vol] 4.24 10*6/uL 4.2-5.4 [facility] Blood hemoglobin measurement (mass/volume)Ordered By: Eleanor Borjas on 04-01-2023 Hemoglobin (Bld) [Mass/Vol] 12.5 g/dL 12.0-15.0 [facility] Blood lymphocytes/100 leukoc ytesOrdered By: Eleanor Borjas on 04-01-2023 Lymphocytes/100 WBC (Bld) 46.6 % 19-41 [facility] Blood monocytes/100 leukocyt esOrdered By: Eleanor Borjas on 04-01-2023 Monocytes/100 WBC (Bld) 6.0 % 0-10 [facility] Blood platelet mean volumeOr dered By: Eleanor Borjas on 04-01-2023 Platelet mean volume (Bld) [Entitic vol] 10.9 fL 6.2-12.0 [facility] Determination of erythrocyte mean corpuscular volume (MCV)Ordered By: Eleanor Borjas on 04-01-2023 MCV (RBC) [Entitic vol] 94.1 fL 81-99 [facility] Hematocrit Auto (Bld) [Volum e fraction]Ordered By: Eleanor Borjas on 04-01-2023 Hematocrit (Bld) [Volume fraction] 39.9 % 37-47 [facility] Ketones Test strip Ql (U)Ord ered By: Eleanor Borjas on 04-01-2023 Ketones Ql (U) Negative Negative [facility] - Chemistry and C hemistry - challengeOrdered By: Eleanor Borjas on 04-01-2023 CO2 [Moles/Vol] 27.0 mmol/L 21.0-32.0 [facility] Urea nitrogen/Creatinine [Mass ratio] 6.8 mg/mg 10-20 [facility] - Hematology and Cell countsOrdered By: Eleanor Borjas on 04-01-2023 Erythrocyte distribution width (RBC) [Entitic vol] 47.6 fL 35.1-43.9 [facility] Erythrocyte distribution width (RBC) [Ratio] 13.8 % 11.6-14.6 [facility] Immature granulocytes/100 WBC (Bld) 0.400 % 0.0-0.9 [facility] Comment on above: IG% - Immature Granu locytes (promyelocytes, myelocytes and metamyelocytes) > 1% indicates that a LEFT SHIFT is Present. MCH (RBC) [Entitic mass] 29.5 pg 27.0-32.0 [facility] Nucleated RBC/100 WBC (Bld) [Ratio] 0 % 0-5 [facility] MCHC Auto (RBC) [Mass/Vol]Or dered By: Eleanor Borjas on 04-01-2023 MCHC (RBC) [Mass/Vol] 31.3 g/dL 32-36 [facility] Mucus LM Ql (Urine sed)Order ed By: Eleanor Borjas on 04-01-2023 Mucus Ql (Urine sed) 0 SEEN /hpf [facility] Nitrite Test strip Ql (U)Ord ered By: Eleanor Borjas on 04-01-2023 Nitrite Ql (U) Negative Negative [facility] No Panel InformationOrdered By: Eleanor Borjas on 04-01-2023 Estimated Creatinine Clearance Calc 46.78 ml/min [facility] Estimated GFR (MDRD) Amer 65 mL/min >60 [facility] Comment on above: GFR Calc Estimated GFR (MDRD) Non-Af Amer 54 mL/min >60 [facility] Comment on above: Non- GFR Calc Platelets bldOrdered By: Shahla Borjas on 04-01-2023 Platelets (Bld) [#/Vol] 214 10*3/uL 150-450 [facility] Protein Test strip Ql (U)Ord ered By: Eleanor Borjas on 04-01-2023 Protein Ql (U) 15 mg/dl Negative [facility] Serum or plasma calcium shelley urement (mass/volume)Ordered By: Eleanor Borjas on 04-01-2023 Calcium [Mass/Vol] 9.3 mg/dL 8.5-10.1 [facility] Serum or plasma creatinine m easurement (mass/volume)Ordered By: Eleanor Borjas on 04-01-2023 Creatinine [Mass/Vol] 1.17 mg/dL 0.55-1.02 [facility] Comment on above: The validity of the calculated GFR & GFRAA in patients over 70 years has not been determined. Clinical correlation is essential. Serum or plasma urea nitroge n measurement (mass/volume)Ordered By: Eleanor Borjas on 04-01-2023 Urea nitrogen [Mass/Vol] 8 mg/dL 7-18 [facility] Squamous epithelial cells de tection in urine sediment by light microscopyOrdered By: Eleanor Borjas on 04-01-2023 Epithelial cells.squamous LM Ql (Urine sed) 5-10 SEEN /hpf 5-10 [facility] Thin prep Papanicolaou smear with manual screeningOrdered By: Eleanor Borjas on 04-01-2023 Thin prep Papanicolaou smear with manual screening 5 5-15 [facility] Urine blood detectionOrdered By: Eleanor Borjas on 04-01-2023 RBC Ql (U) 10 /ul Negative [facility] RBC Ql (U) 0-5 SEEN /hpf 0-5 [facility] Urine clarityOrdered By: Shahla Borjas on 04-01-2023 Clarity (U) Sl. Cloudy Clear [facility] Urine color determinationOrd ered By: Eleanor Borjas on 04-01-2023 Color (U) Yellow Yellow [facility] Urine glucose detectionOrder ed By: Eleanor Borjas on 04-01-2023 Glucose Ql (U) Normal mg/dl Normal [facility] [facility] leukocyte esterase det ection by dipstickOrdered By: Eelanor Borjas on 04-01-2023 Leukocyte esterase Test strip Ql (U) Negative Negative [facility] Urine pHOrdered By: Eleanor Borjas on 04-01-2023 pH (U) 5.0 [pH] 5.0 - 8.0 [facility] Urine sediment bacteria coun t by microscopy (number/high power field)Ordered By: Eleanor Borjas on 04-01-2023 Bacteria LM.HPF (Urine sed) [#/Area] 1 /[HPF] None Seen [facility] Urine specific gravity measu rementOrdered By: Eleanor Borjas on 04-01-2023 Specific gravity (U) [Rel density] 1.025 1.002-1.030 [facility] Urobilinogen Auto test strip Ql (U)Ordered By: Eleanor Borjas on 04-01-2023 Urobilinogen Ql (U) Normal mg/dl Normal [facility] CBC W Auto Differential pane l (Bld)on 03-30-2023 Basophils (Bld) [#/Vol] 0.05 10*3/uL <0.11 k/uL [facility] Basophils/100 WBC (Bld) 0.8 % [facility] Differential cell count method Nom (Bld) Auto [facility] Eosinophils (Bld) [#/Vol] 0.28 10*3/uL <0.46 k/uL [facility] Eosinophils/100 WBC (Bld) 4.6 % [facility] Erythrocyte distribution width (RBC) [Ratio] 14.2 % 11.5 - 15.0 % [facility] Hematocrit (Bld) [Volume fraction] 40.4 % 36.0 - 46.0 % [facility] Hemoglobin (Bld) [Mass/Vol] 12.6 g/dL 11.5 - 15.5 g/dL [facility] Immature granulocytes (Bld) [#/Vol] 0.05 10*3/uL <0.10 k/uL [facility] Immature granulocytes/100 WBC (Bld) 0.8 % [facility] Lymphocytes (Bld) [#/Vol] 2.99 10*3/uL 1.00 - 4.00 k/uL [facility] Lymphocytes/100 WBC (Bld) 49.2 % [facility] MCH (RBC) [Entitic mass] 29.4 pg 26.0 - 34.[address] [facility] MCHC (RBC) [Mass/Vol] 31.2 g/dL 30.5 - 36.0 g/dL [facility] MCV (RBC) [Entitic vol] 94.4 fL 80.0 - 100.[address] [facility] Monocytes (Bld) [#/Vol] 0.48 10*3/uL <0.87 k/uL [facility] Monocytes/100 WBC (Bld) 7.9 % [facility] Neutrophils (Bld) [#/Vol] 2.23 10*3/uL 1.45 - 7.50 k/uL [facility] Neutrophils/100 WBC (Bld) 36.7 % [facility] Nucleated RBC (Bld) [#/Vol] <0.01 k/uL [facility] Nucleated RBC/100 WBC (Bld) [Ratio] 0.0 /[address] [facility] Platelet mean volume (Bld) [Entitic vol] 11.1 fL 9.0 - 12.[address] [facility] Platelets (Bld) [#/Vol] 229 10*3/uL 150 - 400 k/uL [facility] RBC (Bld) [#/Vol] 4.28 10*6/uL 3.90 - 5.2 0 m/uL [facility] WBC (Bld) [#/Vol] 6.08 10*3/uL 3.70 - 11. 00 k/uL [facility] LIPASE BLDon 03-30-2023 Lipase [Catalytic activity/Vol] 23 U/L 16 - 61 U/L [facility] .Auto Diffon 03-16-2023 Basophil, Absolute 0.1 10 3/mcL Normal 0.0-0.2 [facility] ([place]) Comment on above: Performed By: #### L IP, BMP, ANEU, MG, LIPID, CBC, HFP, SAGE, ADIFF, GFR ####[address] [place], [place] [address] Basophils/100 WBC (Bld) 0.5 % Normal 0.0-2.5 [facility] ([place]) Comment on above: Performed By: #### L IP, BMP, ANEU, MG, LIPID, CBC, HFP, SAGE, ADIFF, GFR ####[place] [address] [place], [place] [address] Eosinophil, Absolute 0.1 10 3/mcL Normal 0.0-0.4 [facility] ([place]) Comment on above: Performed By: #### L IP, BMP, ANEU, MG, LIPID, CBC, HFP, SAGE, ADIFF, GFR ####[place] [address] [place], [place] [address] Eosinophils/100 WBC (Bld) 0.8 % Normal 0.0-7.0 [facility] ([place]) Comment on above: Performed By: #### L IP, BMP, ANEU, MG, LIPID, CBC, HFP, SAGE, ADIFF, GFR ####[place] [address] [place], [place] [address] Lymphocyte, Absolute 4.0 10 3/mcL High 0.8-3.9 [facility] ([place]) Comment on above: Performed By: #### L IP, BMP, ANEU, MG, LIPID, CBC, HFP, SAGE, ADIFF, GFR ####[place] [address] [place], [place] [address] Lymphocytes/100 WBC (Bld) 36.7 % Normal 10.0-50.0 [facility] ([place]) Comment on above: Performed By: #### L IP, BMP, ANEU, MG, LIPID, CBC, HFP, SAGE, ADIFF, GFR ####[address] [place], [place] [address] Monocyte, Absolute 0.7 10 3/mcL Normal 0.2-1.0 [facility] ([place]) Comment on above: Performed By: #### L IP, BMP, ANEU, MG, LIPID, CBC, HFP, SAGE, ADIFF, GFR ####[facility] [place], [place] [address] Monocytes/100 WBC (Bld) 6.3 % Normal 1.7-13.0 [facility] ([place]) Comment on above: Performed By: #### L IP, BMP, ANEU, MG, LIPID, CBC, HFP, SAGE, ADIFF, GFR ####[address] [place], [place] [address] Neutrophils/100 WBC (Bld) 55.7 % Normal 37.0-80.0 [facility] ([place]) Comment on above: Performed By: #### L IP, BMP, ANEU, MG, LIPID, CBC, HFP, SAGE, ADIFF, GFR ####[address] [place], [place] [address] .GFRon 03-16-2023 GFR 61 ml/min/1.73sqm Normal [facility] ([place]) Comment on above: Result Comment: GFR Population [...] LIPID, CBC, HFP, SAGE, ADIFF, GFR ####[address] [place], [place] [address] GFR Non- 50 ml/min/1.73sqm Normal [facility] ([place]) Comment on above: Result Comment: GFR Population [...] MG, LIPID, CBC, HFP, SAGE, ADIFF, GFR ####[address] [place], [place] [address] .NEUABSon 03-16-2023 Neutrophil, Absolute 6.1 10 3/mcL Normal 2.9-6.2 [facility] ([place]) Comment on above: Performed By: #### L IP, BMP, ANEU, MG, LIPID, CBC, HFP, SAGE, ADIFF, GFR ####[place] [address] [place], [place] [address] AMYon 03-16-2023 Amylase [Catalytic activity/Vol] 22 U/L Low 25-115 [facility] ([place]) Comment on above: Performed By: #### L IP, BMP, ANEU, MG, LIPID, CBC, HFP, SAGE, ADIFF, GFR ####[address] [place], [place] [address] BMPon 03-16-2023 BUN/Creatinine Ratio 13 ratio Normal 7-27 Replaced by [facility]) Comment on above: Performed By: #### L IP, BMP, ANEU, MG, LIPID, CBC, HFP, SAGE, ADIFF, GFR ####[place] [address] [place], [place] [address] Calcium [Mass/Vol] 9.3 mg/dL Normal 8.4-10.2 [facility] ([place]) Comment on above: Performed By: #### L IP, BMP, ANEU, MG, LIPID, CBC, HFP, SAGE, ADIFF, GFR ####[place] [address] [place], [place] [address] Chloride [Moles/Vol] 103 mmol/L Normal 98-107 [facility] ([place]) Comment on above: Performed By: #### L IP, BMP, ANEU, MG, LIPID, CBC, HFP, SAGE, ADIFF, GFR ####[place] [address] [place], [place] [address] CO2 [Moles/Vol] 33 mmol/L High 22-29 [facility] ([place]) Comment on above: Performed By: #### L IP, BMP, ANEU, MG, LIPID, CBC, HFP, SAGE, ADIFF, GFR ####[address] [place], [place] [address] Creatinine [Mass/Vol] 1.17 mg/dL High 0.55-1.02 [facility] ([place]) Comment on above: Performed By: #### L IP, BMP, ANEU, MG, LIPID, CBC, HFP, SAGE, ADIFF, GFR ####[address] [place], [place] [address] Electrolyte Balance 5.0 mEq/L Normal 4.0-15.0 [facility] ([place]) Comment on above: Performed By: #### L IP, BMP, ANEU, MG, LIPID, CBC, HFP, SAGE, ADIFF, GFR ####[address] [place], [place] [address] Glucose [Mass/Vol] 89 mg/dL Normal 70-105 [facility] ([place]) Comment on above: Performed By: #### L IP, BMP, ANEU, MG, LIPID, CBC, HFP, SAGE, ADIFF, GFR ####[address] [place], [place] [address] Potassium [Moles/Vol] 4.4 mmol/L Normal 3.5-5.1 [facility] ([place]) Comment on above: Performed By: #### L IP, BMP, ANEU, MG, LIPID, CBC, HFP, SAGE, ADIFF, GFR ####[address] [place], [place] [address] Sodium [Moles/Vol] 141 mmol/L Normal 136-145 [facility] ([place]) Comment on above: Performed By: #### L IP, BMP, ANEU, MG, LIPID, CBC, HFP, SAGE, ADIFF, GFR ####[address] [place], [place] [address] Urea nitrogen [Mass/Vol] 15 mg/dL Normal 7-18 [facility] ([place]) Comment on above: Performed By: #### L IP, BMP, ANEU, MG, LIPID, CBC, HFP, SAGE, ADIFF, GFR ####[address] [place], [place] [address] CBCon 03-16-2023 Erythrocyte distribution width (RBC) [Ratio] 14.8 % High 11.5-14.5 [facility] ([place]) Comment on above: Performed By: #### L IP, BMP, ANEU, MG, LIPID, CBC, HFP, SAGE, ADIFF, GFR ####[address] [place] [phone] Hematocrit (Bld) [Volume fraction] 33.9 % Low 37.0-47.0 [facility] ([place]) Comment on above: Performed By: #### L IP, BMP, ANEU, MG, LIPID, CBC, HFP, SAGE, ADIFF, GFR ####[address] [place] [phone] Hgb 11.4 G/dL Low 12.0-16.0 [facility] ([place]) Comment on above: Performed By: #### L IP, BMP, ANEU, MG, LIPID, CBC, HFP, SAGE, ADIFF, GFR ####[place] [address] [place], [place] [address] MCH (RBC) [Entitic mass] 29.8 pg Normal 27.0-31.2 [facility] ([place]) Comment on above: Performed By: #### L IP, BMP, ANEU, MG, LIPID, CBC, HFP, SAGE, ADIFF, GFR ####[address] [place] [phone] MCHC 33.7 G/dL Normal 33.0-37.0 [facility] ([place]) Comment on above: Performed By: #### L IP, BMP, ANEU, MG, LIPID, CBC, HFP, SAGE, ADIFF, GFR ####[place] [address] [place] [phone] MCV (RBC) [Entitic vol] 88.5 fL Normal 80.0-94.0 [facility] ([place]) Comment on above: Performed By: #### L IP, BMP, ANEU, MG, LIPID, CBC, HFP, SAGE, ADIFF, GFR ####[address] [place], [place] [address] Platelet 223 10 3/mcL Normal 130-400 [facility] ([place]) Comment on above: Performed By: #### L IP, BMP, ANEU, MG, LIPID, CBC, HFP, SAGE, ADIFF, GFR ####[address] [place], [place] [address] Platelet mean volume (Bld) [Entitic vol] 8.4 fL Normal 7.4-10.4 [facility] ([place]) Comment on above: Performed By: #### L IP, BMP, ANEU, MG, LIPID, CBC, HFP, SAGE, ADIFF, GFR ####[address] [place], [place] [address] RBC 3.83 10 6/mcL Low 4.20-5.40 [facility] ([place]) Comment on above: Performed By: #### L IP, BMP, ANEU, MG, LIPID, CBC, HFP, SAGE, ADIFF, GFR ####[address] [place], [place] [address] WBC 10.9 10 3/mcL High 4.6-10.8 [facility] ([place]) Comment on above: Performed By: #### L IP, BMP, ANEU, MG, LIPID, CBC, HFP, SAGE, ADIFF, GFR ####[address] [place], [place] [address] HFPon 03-16-2023 Bili Indirect 0.5 mg/dL Normal [facility] ([place]) Comment on above: Performed By: #### L IP, BMP, ANEU, MG, LIPID, CBC, HFP, SAGE, ADIFF, GFR ####[address] [place], [place] [address] Albumin Level 3.3 G/dL Low 3.5-5.0 [facility] ([place]) Comment on above: Performed By: #### L IP, BMP, ANEU, MG, LIPID, CBC, HFP, SAGE, ADIFF, GFR ####[address] [place], [place] [address] Albumin/Globulin [Mass ratio] 1.2 {ratio} Normal 1.1-2.5 [facility] ([place]) Comment on above: Performed By: #### L IP, BMP, ANEU, MG, LIPID, CBC, HFP, SAGE, ADIFF, GFR ####[address] [place], [place] [address] ALP [Catalytic activity/Vol] 96 U/L Normal 40-135 [facility] ([place]) Comment on above: Performed By: #### L IP, BMP, ANEU, MG, LIPID, CBC, HFP, SAGE, ADIFF, GFR ####[address] [place], [place] [address] ALT [Catalytic activity/Vol] 14 U/L Normal 14-59 [facility] ([place]) Comment on above: Performed By: #### L IP, BMP, ANEU, MG, LIPID, CBC, HFP, SAGE, ADIFF, GFR ####[address] [place], [place] [address] AST [Catalytic activity/Vol] 8 U/L Low 10-40 [facility] ([place]) Comment on above: Performed By: #### L IP, BMP, ANEU, MG, LIPID, CBC, HFP, SAGE, ADIFF, GFR ####[address] [place], [place] [address] Bili Direct 0.1 mg/dL Normal 0.0-0.2 [facility] ([place]) Comment on above: Result Comment: Use of this assay is not recommended for patients undergoing treatment with eltrombopag due to the potential for falsely elevated results. Performed By: #### L IP, BMP, ANEU, MG, LIPID, CBC, HFP, SAGE, ADIFF, GFR ####[address] [place], [place] [address] Bili Total 0.6 mg/dL Normal 0.2-1.0 [facility] ([place]) Comment on above: Result Comment: Use of this assay is not recommended for patients undergoing treatment with eltrombopag due to the potential for falsely elevated results. Performed By: #### L IP, BMP, ANEU, MG, LIPID, CBC, HFP, SAGE, ADIFF, GFR ####[address] [place], [place] [address] Globulin 2.8 G/dL Normal [facility] ([place]) Comment on above: Performed By: #### L IP, BMP, ANEU, MG, LIPID, CBC, HFP, SAGE, ADIFF, GFR ####[address] [place], [place] [address] Total Protein 6.1 G/dL Low 6.4-8.2 [facility] ([place]) Comment on above: Performed By: #### L IP, BMP, ANEU, MG, LIPID, CBC, HFP, SAGE, ADIFF, GFR ####[address] [place], [place] [address] LABORATORYOrdered By: SYSTEM SYSTEM on 03-16-2023 Albumin [...] 03-16-2023 Lipase Level 27 U/L Normal 16-77 [facility] ([place]) Comment on above: Performed By: #### L IP, BMP, ANEU, MG, LIPID, CBC, HFP, SAGE, ADIFF, GFR ####[address] [place], [place] [address] LIPIDon 03-16-2023 Cholesterol [Mass/Vol] 235 mg/dL High 0-200 [facility] ([place]) Comment on above: Result Comment: Chol esterol Reference Interval: Less than 200 Desirable 200-239 Borderline high risk 240 and above High risk Performed By: #### L IP, BMP, ANEU, MG, LIPID, CBC, HFP, SAGE, ADIFF, GFR ####[place] [address] [place], [place] [address] Cholesterol in HDL [Mass/Vol] 43 mg/dL Normal 40-60 [facility] ([place]) Comment on above: Performed By: #### L IP, BMP, ANEU, MG, LIPID, CBC, HFP, SAGE, ADIFF, GFR ####[address] [place], [place] [address] Cholesterol in LDL [Mass/Vol] 136 mg/dL High 0-130 [facility] ([place]) Comment on above: Performed By: #### L IP, BMP, ANEU, MG, LIPID, CBC, HFP, SAGE, ADIFF, GFR ####[place] [address] [place], [place] [address] Triglyceride [Mass/Vol] 281 mg/dL High 0-150 [facility] ([place]) Comment on above: Result Comment: Trig lyceride Reference Interval: Less than 150 Normal 150-199 Borderline high risk 200-499 High risk 500 or higher Very high risk Performed By: #### L IP, BMP, ANEU, MG, LIPID, CBC, HFP, SAGE, ADIFF, GFR ####[address] [place], [place] [address] MGon 03-16-2023 Magnesium [Mass/Vol] 1.9 mg/dL Normal 1.8-2.4 [facility] ([place]) Comment on above: Performed By: #### L IP, BMP, ANEU, MG, LIPID, CBC, HFP, SAGE, ADIFF, GFR ####[address] [place], [place] [address] MRI MRCPon 03-16-2023 MRI MRCP ORIGINAL EXAMINATION: [...] 03/16/2023 4:17:14 PM Ordering Provider: [facility] ([place]) CBC W Auto Differential pane l (Bld)on 03-11-2023 Basophils (Bld) [#/Vol] 0.08 10*3/uL <0.11 k/uL [facility] Basophils/100 WBC (Bld) 0.8 % [facility] Differential cell count method Nom (Bld) Auto [facility] Eosinophils (Bld) [#/Vol] 0.34 10*3/uL <0.46 k/uL [facility] Eosinophils/100 WBC (Bld) 3.6 % [facility] Erythrocyte distribution width (RBC) [Ratio] 14.2 % 11.5 - 15.0 % [facility] Hematocrit (Bld) [Volume fraction] 39.3 % 36.0 - 46.0 % [facility] Hemoglobin (Bld) [Mass/Vol] 12.6 g/dL 11.5 - 15.5 g/dL [facility] Immature granulocytes (Bld) [#/Vol] 0.11 10*3/uL High <0.10 k/uL [facility] Immature granulocytes/100 WBC (Bld) 1.2 % [facility] Lymphocytes (Bld) [#/Vol] 3.28 10*3/uL 1.00 - 4.00 k/uL [facility] Lymphocytes/100 WBC (Bld) 34.3 % [facility] MCH (RBC) [Entitic mass] 29.9 pg 26.0 - 34.[address] [facility] MCHC (RBC) [Mass/Vol] 32.1 g/dL 30.5 - 36.0 g/dL [facility] MCV (RBC) [Entitic vol] 93.1 fL 80.0 - 100.[address] [facility] Monocytes (Bld) [#/Vol] 0.62 10*3/uL <0.87 k/uL [facility] Monocytes/100 WBC (Bld) 6.5 % [facility] Neutrophils (Bld) [#/Vol] 5.12 10*3/uL 1.45 - 7.50 k/uL [facility] Neutrophils/100 WBC (Bld) 53.6 % [facility] Nucleated RBC (Bld) [#/Vol] <0.01 k/uL [facility] Nucleated RBC/100 WBC (Bld) [Ratio] 0.0 /[address] [facility] Platelet mean volume (Bld) [Entitic vol] 11.1 fL 9.0 - 12.[address] [facility] Platelets (Bld) [#/Vol] 227 10*3/uL 150 - 400 k/uL [facility] RBC (Bld) [#/Vol] 4.22 10*6/uL 3.90 - 5.2 0 m/uL [facility] WBC (Bld) [#/Vol] 9.55 10*3/uL 3.70 - 11. 00 k/uL [facility] XR CHEST 2V FRONTAL/LATon [facility] XR Chest PA and Lateralon IMPRESSION: No significant acute radiographic abnormality of the chest. [employer] Supervisor: HERMINIO Transcribe Date/Time: Mar 09 2023 5:58P Dictated [...] bony abnormality identified. DIVISION OF RADIOLOGY Provider, [facility] - 03/09/2023 * * *Final Report* * [...] significant acute radiographic abnormality of the chest. [place] Supervisor: PSCB Transcribe Date/Time: Mar 09 2023 5:58P Dictated by : RUBEN ALBERT MD This examination was interpreted and the report reviewed and electronically signed by: RUBEN ALBERT MD on Mar 09 2023 5:59PM EST [facility] Radiology Study observation (narrative) Melissa Richardson XR Chest PA and LateralOrder ed By: Ccf Provider on 03-09-[address] [facility] .Auto Diffon 02-28-2023 Basophil, Absolute 0.1 10 3/mcL Normal 0.0-0.3 [facility] ([place]) Comment on above: Performed By: #### U AMI, UA #### [address] [address] Basophils/100 WBC (Bld) 0.9 % Normal 0.0-2.5 [facility] ([place]) Comment on above: Performed By: #### U AMIC, UA #### [address] [address] Eosinophil, Absolute 0.2 10 3/mcL Normal 0.0-0.7 [facility] ([place]) Comment on above: Performed By: #### U AMIC, UA #### [address] [address] Eosinophils/100 WBC (Bld) 3.3 % Normal 0.0-6.0 [facility] ([place]) Comment on above: Performed By: #### U AMIC, UA #### [address] [address] Lymphocyte, Absolute 2.5 10 3/mcL Normal 0.9-4.3 [facility] ([place]) Comment on above: Performed By: #### U AMIC, UA #### [address] [address] Lymphocytes/100 WBC (Bld) 35.9 % Normal 20.0-40.0 [facility] ([place]) Comment on above: Performed By: #### U AMIC, UA #### [address] [address] Monocyte, Absolute 0.5 10 3/mcL Normal 0.1-1.4 [facility] ([place]) Comment on above: Performed By: #### U AMIC, UA #### [address] [address] Monocytes/100 WBC (Bld) 7.8 % Normal 2.0-13.0 [facility] ([place]) Comment on above: Performed By: #### U AMIC, UA #### [address] [address] Neutrophils/100 WBC (Bld) 52.1 % Normal 50.0-75.0 [facility] ([place]) Comment on above: Performed By: #### U AMIC, UA #### [address] [address] .GFRon 02-28-2023 GFR >60 Normal [facility] ([place]) Comment on above: Result Comment: GFR Population [...] meters Performed By: #### P RO #### [address] [address] GFR Non- >60 Normal [facility] ([place]) Comment on above: Result Comment: GFR Population [...] meters Performed By: #### P RO #### [address] [address] .NEUABSon 02-28-2023 Neutrophil, Absolute 3.6 10 3/mcL Normal 2.3-8.1 [facility] ([place]) Comment on above: Performed By: #### U AMIC, UA #### [address] [address] BMPon 02-28-2023 BUN/Creatinine Ratio 12.1 ratio Normal 10.0-22.0 [facility] ([place]) Comment on above: Performed By: #### P RO #### [address] [address] Calcium [Mass/Vol] 9.1 mg/dL Normal 8.7-10.4 [facility] ([place]) Comment on above: Performed By: #### P RO #### [address] [address] Chloride [Moles/Vol] 106 mmol/L Normal 98-110 [facility] ([place]) Comment on above: Performed By: #### P RO #### [address] [address] CO2 [Moles/Vol] 28 mmol/L Normal 22-32 [facility] ([place]) Comment on above: Performed By: #### P RO #### [address] [address] Creatinine [Mass/Vol] 0.99 mg/dL Normal 0.50-1.20 [facility] ([place]) Comment on above: Performed By: #### P RO #### [address] [address] Electrolyte Balance 8.0 mEq/L Normal 4.0-15.0 [facility] ([place]) Comment on above: Performed By: #### P RO #### [address] [address] Glucose [Mass/Vol] 90 mg/dL Normal 70-110 [facility] ([place]) Comment on above: Performed By: #### P RO #### [address] [address] Potassium [Moles/Vol] 4.5 mmol/L Normal 3.5-5.0 [facility] ([place]) Comment on above: Result Comment: Spec imen slightly hemolyzed. Performed By: #### P RO #### [address] [address] Sodium [Moles/Vol] 142 mmol/L Normal 136-145 [facility] ([place]) Comment on above: Performed By: #### P RO #### [place] [address] Urea nitrogen [Mass/Vol] 12.0 mg/dL Normal 8.0-22.0 [facility] ([place]) Comment on above: Performed By: #### P RO #### [place] [phone] CBCon 02-28-2023 Erythrocyte distribution width (RBC) [Ratio] 14.6 % Normal 11.5-15.5 [facility] ([place]) Comment on above: Performed By: #### P RO #### [place] [phone] Hematocrit (Bld) [Volume fraction] 34.2 % Normal 34.0-46.0 [facility] ([place]) Comment on above: Performed By: #### P RO #### [place] [address] Hgb 11.3 G/dL Low 12.0-16.0 [facility] ([place]) Comment on above: Performed By: #### P RO #### [place] [phone] MCH (RBC) [Entitic mass] 29.7 pg Normal 27.0-33.0 [facility] ([place]) Comment on above: Performed By: #### P RO #### [place] [phone] MCHC 33.0 G/dL Normal 32.0-36.0 [facility] ([place]) Comment on above: Performed By: #### P RO #### [place] [phone] MCV (RBC) [Entitic vol] 90.1 fL Normal 80.0-99.0 [facility] ([place]) Comment on above: Performed By: #### P RO #### [place] [id number] Platelet 159 10 3/mcL Normal 150-450 [facility] ([place]) Comment on above: Performed By: #### P RO #### [place] [phone] Platelet mean volume (Bld) [Entitic vol] 10.2 fL Normal 6.6-10.5 [facility] ([place]) Comment on above: Performed By: #### P RO #### [address] [address] RBC 3.80 10 6/mcL Low 4.10-5.30 [facility] ([place]) Comment on above: Performed By: #### P RO #### [address] [address] WBC 6.9 10 3/mcL Normal 4.5-10.8 [facility] ([place]) Comment on above: Performed By: #### P RO #### [address] [address] .Auto Diffon 02-27-2023 Basophil, Absolute 0.0 10 3/mcL Normal 0.0-0.3 [facility] ([place]) Comment on above: Performed By: #### P RO #### [address] [address] Basophils/100 WBC (Bld) 0.4 % Normal 0.0-2.5 [facility] ([place]) Comment on above: Performed By: #### P RO #### [address] [address] Eosinophil, Absolute 0.2 10 3/mcL Normal 0.0-0.7 [facility] ([place]) Comment on above: Performed By: #### P RO #### [address] [address] Eosinophils/100 WBC (Bld) 2.7 % Normal 0.0-6.0 [facility] ([place]) Comment on above: Performed By: #### P RO #### [address] [address] Lymphocyte, Absolute 2.7 10 3/mcL Normal 0.9-4.3 [facility] [facility] ([place]) Comment on above: Performed By: #### P RO #### [address] [address] Lymphocytes/100 WBC (Bld) 43.2 % High 20.0-40.0 [facility] ([place]) Comment on above: Performed By: #### P RO #### [facility] [address] [place] [address] Monocyte, Absolute 0.5 10 3/mcL Normal 0.1-1.4 [facility] ([place]) Comment on above: Performed By: #### P RO #### [facility] [address] [place] [address] Monocytes/100 WBC (Bld) 7.8 % Normal 2.0-13.0 [facility] ([place]) Comment on above: Performed By: #### P RO #### [address] [address] Neutrophils/100 WBC (Bld) 45.9 % Low 50.0-75.0 [facility] ([place]) Comment on above: Performed By: #### P RO #### [address] [address] .GFRon 02-27-2023 GFR >60 Normal [facility] ([place]) Comment on above: Result Comment: GFR Population [...] meters Performed By: #### P RO #### [address] [address] GFR Non- >60 Normal [facility] ([place]) Comment on above: Result Comment: GFR Population [...] meters Performed By: #### P RO #### [place] [address] .NEUABSon 02-27-2023 Neutrophil, Absolute 2.9 10 3/mcL Normal 2.3-8.1 [facility] ([place]) Comment on above: Performed By: #### P RO #### [place] [address] CBCon 02-27-2023 Erythrocyte distribution width (RBC) [Ratio] 14.9 % Normal 11.5-15.5 [facility] ([place]) Comment on above: Performed By: #### P RO #### [place] [address] Hematocrit (Bld) [Volume fraction] 33.6 % Low 34.0-46.0 [facility] ([place]) Comment on above: Performed By: #### P RO #### [place] [address] Hgb 11.1 G/dL Low 12.0-16.0 [facility] ([place]) Comment on above: Performed By: #### P RO #### [place] [address] MCH (RBC) [Entitic mass] 29.8 pg Normal 27.0-33.0 [facility] ([place]) Comment on above: Performed By: #### P RO #### [place] [address] MCHC 33.0 G/dL Normal 32.0-36.0 [facility] ([place]) Comment on above: Performed By: #### P RO #### [place] [address] MCV (RBC) [Entitic vol] 90.5 fL Normal 80.0-99.0 [facility] ([place]) Comment on above: Performed By: #### P RO #### [address] [address] Platelet 177 10 3/mcL Normal 150-450 [facility] ([place]) Comment on above: Performed By: #### P RO #### [address] [address] Platelet mean volume (Bld) [Entitic vol] 9.8 fL Normal 6.6-10.5 [facility] ([place]) Comment on above: Performed By: #### P RO #### [address] [address] RBC 3.71 10 6/mcL Low 4.10-5.30 [facility] ([place]) Comment on above: Performed By: #### P RO #### [address] [address] WBC 6.3 10 3/mcL Normal 4.5-10.8 [facility] ([place]) Comment on above: Performed By: #### P RO #### [address] [address] CMPon 02-27-2023 Albumin Level 3.6 G/dL Normal 3.2-4.8 [facility] ([place]) Comment on above: Performed By: #### P RO #### [address] [address] Albumin/Globulin [Mass ratio] 1.4 {ratio} Normal 0.9-1.6 [facility] ([place]) Comment on above: Performed By: #### P RO #### [address] [address] ALP [Catalytic activity/Vol] 111 U/L Normal 38-126 [facility] ([place]) Comment on above: Performed By: #### P RO #### [address] [address] ALT [Catalytic activity/Vol] 18 U/L Normal 10-49 [facility] ([place]) Comment on above: Performed By: #### P RO #### [place] [id number] AST [Catalytic activity/Vol] 14 U/L Normal 8-34 [facility] ([place]) Comment on above: Performed By: #### P RO #### [place] [id number] Bili Total 1.00 mg/dL Normal 0.20-1.20 [facility] ([place]) Comment on above: Result Comment: Use of this assay is not recommended for patients undergoing treatment with eltrombopag due to the potential for falsely elevated results. Performed By: #### P RO #### [place] [id number] BUN/Creatinine Ratio 17.2 ratio Normal 10.0-22.0 [facility] ([place]) Comment on above: Performed By: #### P RO #### [place] [id number] Calcium [Mass/Vol] 8.7 mg/dL Normal 8.7-10.4 [facility] ([place]) Comment on above: Performed By: #### P RO #### [place] [id number] Chloride [Moles/Vol] 103 mmol/L Normal 98-110 [facility] ([place]) Comment on above: Performed By: #### P RO #### [place] [id number] CO2 [Moles/Vol] 29 mmol/L Normal 22-32 [facility] ([place]) Comment on above: Performed By: #### P RO #### [place] [id number] Creatinine [Mass/Vol] 0.99 mg/dL Normal 0.50-1.20 [facility] ([place]) Comment on above: Performed By: #### P RO #### [place] [id number] Electrolyte Balance 6.0 mEq/L Normal 4.0-15.0 [facility] ([place]) Comment on above: Performed By: #### P RO #### [place] [id number] Globulin 2.6 G/dL Normal 1.5-3.8 [facility] ([place]) Comment on above: Performed By: #### P RO #### [address] [address] Glucose [Mass/Vol] 97 mg/dL Normal 70-110 [facility] ([place]) Comment on above: Performed By: #### P RO #### [address] [address] Potassium [Moles/Vol] 4.1 mmol/L Normal 3.5-5.0 [facility] ([place]) Comment on above: Performed By: #### P RO #### [address] [address] Sodium [Moles/Vol] 138 mmol/L Normal 136-145 [facility] ([place]) Comment on above: Performed By: #### P RO #### [address] [address] Total Protein 6.2 G/dL Normal 5.7-8.2 [facility] ([place]) Comment on above: Result Comment: No te - New Reference Range in effect 20 Performed By: #### P RO #### [address] [address] Urea nitrogen [Mass/Vol] 17.0 mg/dL Normal 8.0-22.0 [facility] ([place]) Comment on above: Performed By: #### P RO #### [address] [address] .Auto Diffon 02-26-2023 Basophil, Absolute 0.0 10 3/mcL Normal 0.0-0.3 [facility] ([place]) Comment on above: Performed By: #### C MP, ANEU, GFR, CBC, ADIFF ####[address] [address] Basophils/100 WBC (Bld) 0.5 % Normal 0.0-2.5 [facility] ([place]) Comment on above: Performed By: #### C MP, ANEU, GFR, CBC, ADIFF ####[address] [address] Eosinophil, Absolute 0.1 10 3/mcL Normal 0.0-0.7 [facility] ([place]) Comment on above: Performed By: #### C MP, ANEU, GFR, CBC, ADIFF ####[address] [address] Eosinophils/100 WBC (Bld) 1.9 % Normal 0.0-6.0 [facility] ([place]) Comment on above: Performed By: #### C MP, ANEU, GFR, CBC, ADIFF ####[address] [address] Lymphocyte, Absolute 3.2 10 3/mcL Normal 0.9-4.3 [facility] ([place]) Comment on above: Performed By: #### C MP, ANEU, GFR, CBC, ADIFF ####[address] [address] Lymphocytes/100 WBC (Bld) 43.7 % High 20.0-40.0 [facility] ([place]) Comment on above: Performed By: #### C MP, ANEU, GFR, CBC, ADIFF ####[address] [address] Monocyte, Absolute 0.6 10 3/mcL Normal 0.1-1.4 [facility] ([place]) Comment on above: Performed By: #### C MP, ANEU, GFR, CBC, ADIFF ####[address] [address] Monocytes/100 WBC (Bld) 8.4 % Normal 2.0-13.0 [facility] ([place]) Comment on above: Performed By: #### C MP, ANEU, GFR, CBC, ADIFF ####[address] [address] Neutrophils/100 WBC (Bld) 45.5 % Low 50.0-75.0 [facility] ([place]) Comment on above: Performed By: #### C MP, ANEU, GFR, CBC, ADIFF ####[address] [address] .GFRon 02-26-2023 GFR >60 Normal [facility] ([place]) Comment on above: Result Comment: GFR Population [...] #### C MP, ANEU, GFR, CBC, ADIFF ####[address] [address] GFR Non- >60 Normal [facility] ([place]) Comment on above: Result Comment: GFR Population [...] #### C MP, ANEU, GFR, CBC, ADIFF ####[address] [address] .NEUABSon 02-26-2023 Neutrophil, Absolute 3.3 10 3/mcL Normal 2.3-8.1 [facility] ([place]) Comment on above: Performed By: #### C MP, ANEU, GFR, CBC, ADIFF ####[address] [address] CBCon 02-26-2023 Erythrocyte distribution width (RBC) [Ratio] 14.9 % Normal 11.5-15.5 [facility] ([place]) Comment on above: Performed By: #### C MP, ANEU, GFR, CBC, ADIFF ####[place] [address] Hematocrit (Bld) [Volume fraction] 36.7 % Normal 34.0-46.0 [facility] ([place]) Comment on above: Performed By: #### C MP, ANEU, GFR, CBC, ADIFF ####[place] [address] Hgb 12.0 G/dL Normal 12.0-16.0 [facility] ([place]) Comment on above: Performed By: #### C MP, ANEU, GFR, CBC, ADIFF ####[place] [address] MCH (RBC) [Entitic mass] 29.6 pg Normal 27.0-33.0 [facility] ([place]) Comment on above: Performed By: #### C MP, ANEU, GFR, CBC, ADIFF ####[place] [address] MCHC 32.6 G/dL Normal 32.0-36.0 [facility] ([place]) Comment on above: Performed By: #### C MP, ANEU, GFR, CBC, ADIFF ####[place] [address] MCV (RBC) [Entitic vol] 90.9 fL Normal 80.0-99.0 [facility] ([place]) Comment on above: Performed By: #### C MP, ANEU, GFR, CBC, ADIFF ####[place] [address] Platelet 173 10 3/mcL Normal 150-450 [facility] ([place]) Comment on above: Performed By: #### C MP, ANEU, GFR, CBC, ADIFF ####[place] [address] Platelet mean volume (Bld) [Entitic vol] 9.4 fL Normal 6.6-10.5 [facility] ([place]) Comment on above: Performed By: #### C MP, ANEU, GFR, CBC, ADIFF ####[place] [address] RBC 4.04 10 6/mcL Low 4.10-5.30 [facility] ([place]) Comment on above: Performed By: #### C MP, ANEU, GFR, CBC, ADIFF ####[place] [address] WBC 7.3 10 3/mcL Normal 4.5-10.8 [facility] ([place]) Comment on above: Performed By: #### C MP, ANEU, GFR, CBC, ADIFF ####[place] [address] CMPon 02-26-2023 Albumin Level 3.3 G/dL Normal 3.2-4.8 [facility] ([place]) Comment on above: Performed By: #### C MP, ANEU, GFR, CBC, ADIFF ####[place] [address] Albumin/Globulin [Mass ratio] 1.0 {ratio} Normal 0.9-1.6 [facility] ([place]) Comment on above: Performed By: #### C MP, ANEU, GFR, CBC, ADIFF ####[place] [address] ALP [Catalytic activity/Vol] 108 U/L Normal 38-126 [facility] ([place]) Comment on above: Performed By: #### C MP, ANEU, GFR, CBC, ADIFF ####[place] [address] ALT [Catalytic activity/Vol] 14 U/L Normal 10-49 [facility] ([place]) Comment on above: Performed By: #### C MP, ANEU, GFR, CBC, ADIFF ####[place] [address] AST [Catalytic activity/Vol] 9 U/L Normal 8-34 [facility] ([place]) Comment on above: Performed By: #### C MP, ANEU, GFR, CBC, ADIFF ####[place] [address] Bili Total 0.70 mg/dL Normal 0.20-1.20 [facility] ([place]) Comment on above: Result Comment: Use of this assay is not recommended for patients undergoing treatment with eltrombopag due to the potential for falsely elevated results. Performed By: #### C MP, ANEU, GFR, CBC, ADIFF ####[address] [address] BUN/Creatinine Ratio 20.6 ratio Normal 10.0-22.0 [facility] ([place]) Comment on above: Performed By: #### C MP, ANEU, GFR, CBC, ADIFF ####[address] [address] Calcium [Mass/Vol] 9.2 mg/dL Normal 8.7-10.4 [facility] ([place]) Comment on above: Performed By: #### C MP, ANEU, GFR, CBC, ADIFF ####[place] [address] Chloride [Moles/Vol] 102 mmol/L Normal 98-110 [facility] ([place]) Comment on above: Performed By: #### C MP, ANEU, GFR, CBC, ADIFF ####[place] [id number] CO2 [Moles/Vol] 32 mmol/L Normal 22-32 [facility] ([place]) Comment on above: Performed By: #### C MP, ANEU, GFR, CBC, ADIFF ####[address] [address] Creatinine [Mass/Vol] 0.97 mg/dL Normal 0.50-1.20 [facility] ([place]) Comment on above: Performed By: #### C MP, ANEU, GFR, CBC, ADIFF ####[address] [address] Electrolyte Balance 6.0 mEq/L Normal 4.0-15.0 [facility] ([place]) Comment on above: Performed By: #### C MP, ANEU, GFR, CBC, ADIFF ####[address] [address] Globulin 3.2 G/dL Normal 1.5-3.8 [facility] ([place]) Comment on above: Performed By: #### C MP, ANEU, GFR, CBC, ADIFF ####[address] [address] Glucose [Mass/Vol] 97 mg/dL Normal 70-110 [facility] ([place]) Comment on above: Performed By: #### C MP, ANEU, GFR, CBC, ADIFF ####[address] [address] Potassium [Moles/Vol] 4.2 mmol/L Normal 3.5-5.0 [facility] ([place]) Comment on above: Result Comment: Spec imen slightly hemolyzed. Performed By: #### C MP, ANEU, GFR, CBC, ADIFF ####[place] [address] Sodium [Moles/Vol] 140 mmol/L Normal 136-145 [facility] ([place]) Comment on above: Performed By: #### C MP, ANEU, GFR, CBC, ADIFF ####[place] [address] Total Protein 6.5 G/dL Normal 5.7-8.2 [facility] ([place]) Comment on above: Result Comment: No te - New Reference Range in effect 20 Performed By: #### C MP, ANEU, GFR, CBC, ADIFF ####[place] [address] Urea nitrogen [Mass/Vol] 20.0 mg/dL Normal 8.0-22.0 [facility] ([place]) Comment on above: Performed By: #### C MP, ANEU, GFR, CBC, ADIFF ####[address] [address] [address] ABDOMEN/PELVIS W/O CONTRA STon 02-26-2023 CT [...] 02/26/2023 3:05:04 PM Ordering Provider: CHEY [facility] ([place]) XR ABDOMEN 2 VIEWS W/ DECUB/ ERECTon [...] by: Nigel Marroquin DO Preliminary Report By: Nigle Marroquin DO Electronically signed By Nigel Marroquin DO Dictated Date: 02/25/2023 11:08:54 PM Prelim Date: 02/25/2023 11:13:12 PM Sign Date: 02/25/2023 11:13:12 PM Ordering Provider: CHEY Guardado [facility] ([place]) .Auto Diffon 02-25-2023 Basophil, Absolute 0.0 10 3/mcL Normal 0.0-0.3 [facility] ([place]) Comment on above: Performed By: #### E SR #### [address] [address] Basophils/100 WBC (Bld) 0.4 % Normal 0.0-2.5 [facility] ([place]) Comment on above: Performed By: #### E SR #### [address] [address] Eosinophil, Absolute 0.1 10 3/mcL Normal 0.0-0.7 [facility] ([place]) Comment on above: Performed By: #### E SR #### [address] [address] Eosinophils/100 WBC (Bld) 0.7 % Normal 0.0-6.0 [facility] ([place]) Comment on above: Performed By: #### E SR #### [address] [address] Lymphocyte, Absolute 4.4 10 3/mcL High 0.9-4.3 [facility] ([place]) Comment on above: Performed By: #### E SR #### [address] [address] Lymphocytes/100 WBC (Bld) 42.8 % High 20.0-40.0 [facility] ([place]) Comment on above: Performed By: #### E SR #### [address] [address] Monocyte, Absolute 0.8 10 3/mcL Normal 0.1-1.4 [facility] ([place]) Comment on above: Performed By: #### E SR #### [address] [address] Monocytes/100 WBC (Bld) 7.7 % Normal 2.0-13.0 [facility] ([place]) Comment on above: Performed By: #### E SR #### [address] [address] Neutrophils/100 WBC (Bld) 48.4 % Low 50.0-75.0 [facility] ([place]) Comment on above: Performed By: #### E SR #### [address] [address] .GFRon 02-25-2023 GFR >60 Normal [facility] ([place]) Comment on above: Result Comment: GFR Population [...] meters Performed By: #### E SR #### [address] [address] GFR Non- >60 Normal [facility] ([place]) Comment on above: Result Comment: GFR Population [...] meters Performed By: #### E SR #### [address] [address] .NEUABSon 02-25-2023 Neutrophil, Absolute 5.0 10 3/mcL Normal 2.3-8.1 [facility] ([place]) Comment on above: Performed By: #### E SR #### [address] [address] BMPon 02-25-2023 BUN/Creatinine Ratio 21.2 ratio Normal 10.0-22.0 [facility] ([place] Comment on above: Performed By: #### E SR #### [place] [id number] Calcium [Mass/Vol] 9.4 mg/dL Normal 8.7-10.4 [facility] ([place]) Comment on above: Performed By: #### E SR #### [place] [id number] Chloride [Moles/Vol] 104 mmol/L Normal 98-110 [facility] ([place] Comment on above: Performed By: #### E SR #### [place] [id number] CO2 [Moles/Vol] 26 mmol/L Normal 22-32 [facility] ([place]) Comment on above: Performed By: #### E SR #### [place] [address] Creatinine [Mass/Vol] 0.99 mg/dL Normal 0.50-1.20 [facility] ([place]) Comment on above: Performed By: #### E SR #### [place] [id number] Electrolyte Balance 10.0 mEq/L Normal 4.0-15.0 [facility] ([place]) Comment on above: Performed By: #### E SR #### [place] [id number] Glucose [Mass/Vol] 95 mg/dL Normal 70-110 [facility] ([place]) Comment on above: Performed By: #### E SR #### [address] [address] Potassium [Moles/Vol] 4.1 mmol/L Normal 3.5-5.0 [facility] ([place] Comment on above: Performed By: #### E SR #### [place] [id number] Sodium [Moles/Vol] 140 mmol/L Normal 136-145 [facility] ([place]) Comment on above: Performed By: #### E SR #### [place] [id number] Urea nitrogen [Mass/Vol] 21.0 mg/dL Normal 8.0-22.0 [facility] ([place]) Comment on above: Performed By: #### E SR #### [place] [id number] CBCon 02-25-2023 Erythrocyte distribution width (RBC) [Ratio] 14.7 % Normal 11.5-15.5 [facility] ([place]) Comment on above: Performed By: #### E SR #### [place] [id number] Hematocrit (Bld) [Volume fraction] 37.7 % Normal 34.0-46.0 [facility] ([place] Comment on above: Performed By: #### E SR #### [place] [address] Hgb 12.3 G/dL Normal 12.0-16.0 [facility] ([place]) Comment on above: Performed By: #### E SR #### [place] [id number] MCH (RBC) [Entitic mass] 29.7 pg Normal 27.0-33.0 [facility] ([place] Comment on above: Performed By: #### E SR #### [place] [id number] MCHC 32.7 G/dL Normal 32.0-36.0 [facility] ([place]) Comment on above: Performed By: #### E SR #### [place] [id number] MCV (RBC) [Entitic vol] 90.8 fL Normal 80.0-99.0 [facility] ([place]) Comment on above: Performed By: #### E SR #### [place] [id number] Platelet 223 10 3/mcL Normal 150-450 [facility] ([place]) Comment on above: Performed By: #### E SR #### [place] [id number] Platelet mean volume (Bld) [Entitic vol] 9.5 fL Normal 6.6-10.5 [facility] ([place]) Comment on above: Performed By: #### E SR #### [place] [address] RBC 4.15 10 6/mcL Normal 4.10-5.30 [facility] ([place]) Comment on above: Performed By: #### E SR #### [place] [address] WBC 10.3 10 3/mcL Normal 4.5-10.8 [facility] ([place]) Comment on above: Performed By: #### E SR #### [place] [address] LIPon 02-25-2023 Lipase Level 86 U/L High 12-53 [facility] ([place]) Comment on above: Result Comment: No te - New Reference Range in effect 20 Performed By: #### L IP #### [place] [address] PROon 02-24-2023 INR Coag (PPP) [Relative time] 1.0 {INR} Normal [facility] ([place]) Comment on above: Result Comment: The [employer] (CHEST, 1992, [id number]) recommended therapeutic range for oral anticoagulant therapy is: LOW RISK: Prophylaxis of venous thrombosis INR: 2.0-3.0 Treatment of pulmonary embolism 2.0-3.0 Prevention of systemic embolism 2.0-3.0 HIGH RISK: Mechanical prosthetic valves 2.5-3.5 Performed By: #### P RO #### [place] [address] PT Coag (PPP) [Time] 11.7 s Normal 9.0-14.8 [facility] ([place]) Comment on above: Result Comment: Rosy ctive 03/28/08, Protime results may be affected by some antibiotics (i.e. Ciprofloxacin, Azithromycin, Bactrim) which may potentiate the action of oral anticoagulants, with further increases in Protime/INR. Performed By: #### P RO #### [place] [address] UAon 02-24-2023 Color (U) Yellow Normal [facility] ([place]) Comment on above: Performed By: #### U AMIC, UA #### [place] [address] Glucose (U) [Mass/Vol] Negative Normal Negative [facility] ([place]) Comment on above: Performed By: #### U AMIC, UA #### [place] [address] Ketones Ql (U) Trace Normal Neg-Trace [facility] ([place]) Comment on above: Performed By: #### U AMIC, UA #### [place] [address] UA Appear Hazy Abnormal Clear [facility] ([place]) Comment on above: Performed By: #### U AMIC, UA #### [place] [address] UA Blood Negative Normal Neg-Trace [facility] ([place]) Comment on above: Performed By: #### U AMIC, UA #### [place] [address] UA Leuk Est Negative Normal Negative [facility] ([place]) Comment on above: Performed By: #### U AMIC, UA #### [place] [address] UA Nitrite Negative Normal Negative [facility] ([place] Comment on above: Performed By: #### U AMIC, UA #### [place] [address] UA pH 6.5 Normal 5.0 - 8.0 [facility] ([place]) Comment on above: Performed By: #### U AMIC, UA #### [place] [address] UA Protein Negative Normal Negative [facility] ([place]) Comment on above: Performed By: #### U AMIC, UA #### [place] [address] UA Spec Grav 1.020 Normal 1.006-1.029 [facility] ([place]) Comment on above: Performed By: #### U AMIC, UA #### [place] [address] UA Specimen Type Clean Catch Normal [facility] ([place]) Comment on above: Performed By: #### U AMIC, UA #### [place] [address] UA Urobilinogen 1.0 E.U./dL Normal 0.2-1.0 [facility] ([place]) Comment on above: Performed By: #### U AMIC, UA #### [place] [address] Urobilinogen (U) [Mass/Vol] Negative Normal Neg-Trace [facility] ([place]) Comment on above: Performed By: #### U AMIC, UA #### [place] [address] UAMICon 02-24-2023 UA Bacteria 2+ /hpf Abnormal Negative [facility] ([place]) Comment on above: Performed By: #### U AMIC, UA #### [place] [address] UA Mucous 2+ /hpf Normal [facility] ([place]) Comment on above: Performed By: #### U AMIC, UA #### [place] [address] UA RBC Negative Normal 0-2 [facility] ([place] Comment on above: Performed By: #### U AMIC, UA #### [place] [address] UA Squam Epithelial 5-10 Normal 0-20 [facility] ([place]) Comment on above: Performed By: #### U AMIC, UA #### [address] [address] UA WBC Rare Normal 0-5 [facility] ([place]) Comment on above: Performed By: #### U AMIC, UA #### [address] [address] .Auto Diffon 02-23-2023 Basophil, Absolute 0.1 10 3/mcL Normal 0.0-0.3 [facility] ([place]) Comment on above: Performed By: #### U AMIC, UA #### [address] [address] Basophils/100 WBC (Bld) 0.3 % Normal 0.0-2.5 [facility] ([place]) Comment on above: Performed By: #### U AMIC, UA #### [address] [address] Eosinophil, Absolute 0.0 10 3/mcL Normal 0.0-0.7 [facility] ([place]) Comment on above: Performed By: #### U AMIC, UA #### [address] [address] Eosinophils/100 WBC (Bld) 0.0 % Normal 0.0-6.0 [facility] ([place]) Comment on above: Performed By: #### U AMIC, UA #### [address] [address] Lymphocyte, Absolute 1.8 10 3/mcL Normal 0.9-4.3 [facility] ([place]) Comment on above: Performed By: #### U AMIC, UA #### [address] [address] Lymphocytes/100 WBC (Bld) 9.3 % Low 20.0-40.0 [facility] ([place]) Comment on above: Performed By: #### U AMIC, UA #### [address] [address] Monocyte, Absolute 0.4 10 3/mcL Normal 0.1-1.4 [facility] ([place]) Comment on above: Performed By: #### U AMIC, UA #### [facility] [address] [place] [address] Monocytes/100 WBC (Bld) 2.0 % Normal 2.0-13.0 [facility] ([place]) Comment on above: Performed By: #### U AMIC, UA #### [address] [address] Neutrophils/100 WBC (Bld) 88.4 % High 50.0-75.0 [facility] ([place]) Comment on above: Performed By: #### U AMIC, UA #### [address] [address] .GFRon 02-23-2023 GFR Non- >60 Normal [facility] ([place]) Comment on above: Result Comment: GFR Population [...] Performed By: #### U AMIC, UA #### [address] [address] GFR >60 Normal [facility] ([place]) Comment on above: Result Comment: GFR Population [...] Performed By: #### U AMIC UA #### [address] [address] .NEUABSon 02-23-2023 Neutrophil, Absolute 16.8 10 3/mcL High 2.3-8.1 [facility] ([place]) Comment on above: Performed By: #### U AMIC UA #### [address] [address] BMPon 02-23-2023 BUN/Creatinine Ratio 13.3 ratio Normal 10.0-22.0 [facility] ([place]) Comment on above: Performed By: #### U AMIC UA #### [address] [address] Calcium [Mass/Vol] 9.8 mg/dL Normal 8.7-10.4 [facility] ([place]) Comment on above: Performed By: #### U AMIC UA #### [address] [address] Chloride [Moles/Vol] 104 mmol/L Normal 98-110 [facility] ([place]) Comment on above: Performed By: #### U AMIC UA #### [address] [address] CO2 [Moles/Vol] 24 mmol/L Normal 22-32 [facility] ([place]) Comment on above: Performed By: #### U AMIC, UA #### [address] [address] Creatinine [Mass/Vol] 0.83 mg/dL Normal 0.50-1.20 [facility] ([place]) Comment on above: Performed By: #### U AMIC, UA #### [address] [address] Electrolyte Balance 10.0 mEq/L Normal 4.0-15.0 [facility] ([place]) Comment on above: Performed By: #### U AMIC, UA #### [address] [address] Glucose [Mass/Vol] 176 mg/dL High 70-110 [facility] ([place]) Comment on above: Performed By: #### U ROMA UA #### [address] [address] Potassium [Moles/Vol] 4.3 mmol/L Normal 3.5-5.0 [facility] ([place]) Comment on above: Performed By: #### U AMIC, UA #### [address] [address] Sodium [Moles/Vol] 138 mmol/L Normal 136-145 [facility] ([place]) Comment on above: Performed By: #### U ROMA UA #### [address] [address] Urea nitrogen [Mass/Vol] 11.0 mg/dL Normal 8.0-22.0 [facility] ([place]) Comment on above: Performed By: #### U ROMA UA #### [address] [address] CBCon 02-23-2023 Erythrocyte distribution width (RBC) [Ratio] 14.8 % Normal 11.5-15.5 [facility] ([place]) Comment on above: Performed By: #### U ROMA UA #### [address] [address] Hematocrit (Bld) [Volume fraction] 38.1 % Normal 34.0-46.0 [facility] ([place]) Comment on above: Performed By: #### U AMIC, UA #### [address] [address] Hgb 12.6 G/dL Normal 12.0-16.0 [facility] ([place]) Comment on above: Performed By: #### U AMIC UA #### [address] [address] MCH (RBC) [Entitic mass] 29.8 pg Normal 27.0-33.0 [facility] ([place]) Comment on above: Performed By: #### U AMIC UA #### [address] [address] MCHC 33.0 G/dL Normal 32.0-36.0 [facility] ([place]) Comment on above: Performed By: #### U BIANCAC, UA #### [place] [address] MCV (RBC) [Entitic vol] 90.1 fL Normal 80.0-99.0 [facility] ([place]) Comment on above: Performed By: #### U AMIC, UA #### [place] [address] Platelet 254 10 3/mcL Normal 150-450 [facility] ([place]) Comment on above: Performed By: #### U BIANCAC, UA #### [place] [address] Platelet mean volume (Bld) [Entitic vol] 9.7 fL Normal 6.6-10.5 [facility] ([place]) Comment on above: Performed By: #### U AMIC, UA #### [place] [address] RBC 4.23 10 6/mcL Normal 4.10-5.30 [facility] ([place]) Comment on above: Performed By: #### U AMIC, UA #### [place] [address] WBC 19.0 10 3/mcL High 4.5-10.8 [facility] ([place]) Comment on above: Performed By: #### U AMIC, UA #### [place] [address] ESRon 02-23-2023 Erythrocyte Sed Rate 17 mm/hr Normal 0-20 [facility] ([place]) Comment on above: Performed By: #### E SR #### [place] [address] MGon 02-23-2023 Magnesium [Mass/Vol] 1.8 mg/dL Normal 1.6-2.4 [facility] ([place]) Comment on above: Performed By: #### U AMIC, UA #### [place] [address] .GFRon 02-22-2023 GFR Non- >60 Normal [facility] ([place]) Comment on above: Result Comment: GFR Population [...] Performed By: #### B MP, GFR #### [address] [address] GFR >60 Normal [facility] ([place]) Comment on above: Result Comment: GFR Population [...] Performed By: #### B MP, GFR #### [address] [address] .Manual Diffon 02-22-2023 Basophil %, Manual 0.0 % Normal 0.0-2.5 [facility] ([place]) Comment on above: Performed By: #### B MP, GFR #### [address] [address] Basophil, Abs Manual 0.0 10 3/mcL Normal 0.0-0.3 [facility] ([place]) Comment on above: Performed By: #### B MP, GFR #### [address] [address] Eosinophil %, Manual 1.0 % Normal 0.0-6.0 [facility] ([place]) Comment on above: Performed By: #### B MP, GFR #### [address] [address] Eosinophil, Abs Manual 0.1 10 3/mcL Normal 0.0-0.7 [facility] ([place]) Comment on above: Performed By: #### B MP, GFR #### [address] [address] Lymphocyte %, Manual 18.0 % Low 20.0-40.0 [facility] ([place]) Comment on above: Performed By: #### B MP, GFR #### [address] [address] Lymphocyte, Abs Manual 1.6 10 3/mcL Normal 0.9-4.3 [facility] ([place]) Comment on above: Performed By: #### B MP, GFR #### [address] [address] Monocyte %, Manual 0.0 % Low 2.0-13.0 [facility] ([place]) Comment on above: Performed By: #### B MP, GFR #### [address] [address] Monocyte, Abs Manual 0.0 10 3/mcL Low 0.1-1.4 [facility] ([place]) Comment on above: Performed By: #### B MP, GFR #### [address] [address] Neutrophil %, Manual 81.0 % High 50.0-75.0 [facility] ([place]) Comment on above: Performed By: #### B MP, GFR #### [address] [address] Neutrophil, Abs Manual 7.1 10 3/mcL Normal 2.3-8.1 [facility] ([place]) Comment on above: Performed By: #### B MP, GFR #### [address] [address] Nucleated RBC 0.0 /100 WBC Normal [facility] ([place]) Comment on above: Performed By: #### B MP, GFR #### [address] [address] .Morphon 02-22-2023 Platelet Estimate Normal Normal [facility] ([place]) Comment on above: Performed By: #### B MP, GFR #### [place] [address] RBC morphology finding Nom (Bld) See Below Normal [facility] ([place]) Comment on above: Result Comment: RBC Morphology appears Normal Performed By: #### B MP, GFR #### [address] [address] BMPon 02-22-2023 BUN/Creatinine Ratio 11.9 ratio Normal 10.0-22.0 [facility] ([place]) Comment on above: Performed By: #### B MP, GFR #### [place] [phone] Calcium [Mass/Vol] 9.6 mg/dL Normal 8.7-10.4 [facility] ([place]) Comment on above: Performed By: #### B MP, GFR #### [place] [phone] Chloride [Moles/Vol] 104 mmol/L Normal 98-110 [facility] ([place]) Comment on above: Performed By: #### B MP, GFR #### [place] [phone] CO2 [Moles/Vol] 23 mmol/L Normal 22-32 [facility] ([place]) Comment on above: Performed By: #### B MP, GFR #### [address] [address] Creatinine [Mass/Vol] 0.84 mg/dL Normal 0.50-1.20 [facility] ([place]) Comment on above: Performed By: #### B MP, GFR #### [address] [address] Electrolyte Balance 11.0 mEq/L Normal 4.0-15.0 [facility] ([place]) Comment on above: Performed By: #### B MP, GFR #### [address] [address] Glucose [Mass/Vol] 157 mg/dL High 70-110 [facility] ([place]) Comment on above: Performed By: #### B MP, GFR #### [address] [address] Potassium [Moles/Vol] 4.1 mmol/L Normal 3.5-5.0 [facility] ([place]) Comment on above: Performed By: #### B MP, GFR #### [address] [address] Sodium [Moles/Vol] 138 mmol/L Normal 136-145 [facility] ([place]) Comment on above: Performed By: #### B MP, GFR #### [address] [address] Urea nitrogen [Mass/Vol] 10.0 mg/dL Normal 8.0-22.0 [facility] ([place]) Comment on above: Performed By: #### B MP, GFR #### [address] [address] CBCon 02-22-2023 Platelet 187 10 3/mcL Normal 150-450 [facility] ([place]) Comment on above: Performed By: #### B MP, GFR #### [address] [address] Platelet mean volume (Bld) [Entitic vol] 9.7 fL Normal 6.6-10.5 [facility] ([place]) Comment on above: Performed By: #### B MP, GFR #### [address] [address] WBC 8.8 10 3/mcL Normal 4.5-10.8 [facility] ([place]) Comment on above: Performed By: #### B MP, GFR #### [address] [address] Erythrocyte distribution width (RBC) [Ratio] 14.4 % Normal 11.5-15.5 [facility] ([place]) Comment on above: Performed By: #### B MP, GFR #### [place] [address] Hematocrit (Bld) [Volume fraction] 39.4 % Normal 34.0-46.0 [facility] ([place]) Comment on above: Performed By: #### B MP, GFR #### [place] [address] Hgb 13.0 G/dL Normal 12.0-16.0 [facility] ([place]) Comment on above: Performed By: #### B MP, GFR #### [place] [address] MCH (RBC) [Entitic mass] 29.9 pg Normal 27.0-33.0 [facility] ([place]) Comment on above: Performed By: #### B MP, GFR #### [place] [address] MCHC 33.1 G/dL Normal 32.0-36.0 [facility] ([place]) Comment on above: Performed By: #### B MP, GFR #### [place] [address] MCV (RBC) [Entitic vol] 90.3 fL Normal 80.0-99.0 [facility] ([place]) Comment on above: Performed By: #### B MP, GFR #### [place] [address] RBC 4.36 10 6/mcL Normal 4.10-5.30 [facility] ([place]) Comment on above: Performed By: #### B MP, GFR #### [place] [address] HFPon 02-22-2023 Bili Indirect 0.4 mg/dL Normal 0.1-10.0 [facility] ([place]) Comment on above: Performed By: #### B MP, GFR #### [place] [address] Albumin Level 4.3 G/dL Normal 3.2-4.8 [facility] ([place]) Comment on above: Performed By: #### B MP, GFR #### [address] [address] Albumin/Globulin [Mass ratio] 1.2 {ratio} Normal 0.9-1.6 [facility] ([place]) Comment on above: Performed By: #### B MP, GFR #### [place] [phone] ALP [Catalytic activity/Vol] 120 U/L Normal 38-126 [facility] ([place]) Comment on above: Performed By: #### B MP, GFR #### [address] [address] ALT [Catalytic activity/Vol] 26 U/L Normal 10-49 [facility] ([place]) Comment on above: Performed By: #### B MP, GFR #### [place] [phone] AST [Catalytic activity/Vol] 18 U/L Normal 8-34 [facility] ([place]) Comment on above: Performed By: #### B MP, GFR #### [place] [phone] Bili Direct 0.2 mg/dL Normal 0.0-0.4 [facility] ([place]) Comment on above: Result Comment: Use of this assay is not recommended for patients undergoing treatment with eltrombopag due to the potential for falsely elevated results. Performed By: #### B MP, GFR #### [place] [phone] Bili Total 0.60 mg/dL Normal 0.20-1.20 [facility] ([place]) Comment on above: Result Comment: Use of this assay is not recommended for patients undergoing treatment with eltrombopag due to the potential for falsely elevated results. Performed By: #### B MP, GFR #### [place] [phone] Globulin 3.6 G/dL Normal 1.5-3.8 [facility] ([place]) Comment on above: Performed By: #### B MP, GFR #### [place] [phone] Total Protein 7.9 G/dL Normal 5.7-8.2 [facility] ([place]) Comment on above: Result Comment: No te - New Reference Range in effect 20 Performed By: #### B MP, GFR #### [address] [address] MGon 02-22-2023 Magnesium [Mass/Vol] 2.1 mg/dL Normal 1.6-2.4 [facility] ([place]) Comment on above: Performed By: #### B MP, GFR #### [facility] [address] [place] [address] MRI BRAIN W/ + W/O CONTRASTo n [...] 02/22/2023 6:53:12 PM Ordering Provider: RAN Guardado [facility] ([place]) MRV BRAIN W/O CONTRASTon MRV BRAIN W/O [...] 02/22/2023 7:48:16 PM Ordering Provider: RAN Guardado [facility] ([place]) .Auto Diffon 02-21-2023 Basophil, Absolute 0.1 10 3/mcL Normal 0.0-0.3 [facility] ([place]) Comment on above: Performed By: #### U AMIC UA #### [address] [address] Basophils/100 WBC (Bld) 1.1 % Normal 0.0-2.5 [facility] ([place]) Comment on above: Performed By: #### U AMIC UA #### [address] [address] Eosinophil, Absolute 0.2 10 3/mcL Normal 0.0-0.7 [facility] ([place]) Comment on above: Performed By: #### U AMIC, UA #### [address] [address] Eosinophils/100 WBC (Bld) 3.6 % Normal 0.0-6.0 [facility] ([place]) Comment on above: Performed By: #### U AMIC, UA #### [address] [address] Lymphocyte, Absolute 2.7 10 3/mcL Normal 0.9-4.3 [facility] ([place]) Comment on above: Performed By: #### U AMIC, UA #### [address] [address] Lymphocytes/100 WBC (Bld) 42.8 % High 20.0-40.0 [facility] ([place]) Comment on above: Performed By: #### U AMIC, UA #### [address] [address] Monocyte, Absolute 0.4 10 3/mcL Normal 0.1-1.4 [facility] ([place]) Comment on above: Performed By: #### U AMIC, UA #### [address] [address] Monocytes/100 WBC (Bld) 6.3 % Normal 2.0-13.0 [facility] ([place]) Comment on above: Performed By: #### U AMIC, UA #### [address] [address] Neutrophils/100 WBC (Bld) 46.2 % Low 50.0-75.0 [facility] ([place]) Comment on above: Performed By: #### U AMIC, UA #### [address] [address] .GFRon 02-21-2023 GFR >60 Normal [facility] ([place]) Comment on above: Result Comment: GFR Population [...] Performed By: #### U AMIC, UA #### [address] [address] GFR Non- >60 Normal [facility] ([place]) Comment on above: Result Comment: GFR Population [...] Performed By: #### U AMIC, UA #### [address] [address] .NEUABSon 02-21-2023 Neutrophil, Absolute 2.9 10 3/mcL Normal 2.3-8.1 [facility] ([place]) Comment on above: Performed By: #### U AMIC, UA #### [address] [address] BMPon 02-21-2023 BUN/Creatinine Ratio 9.2 ratio Low 10.0-22.0 [facility] ([place]) Comment on above: Performed By: #### U AMIC, UA #### [address] [address] Calcium [Mass/Vol] 10.4 mg/dL Normal 8.7-10.4 [facility] ([place]) Comment on above: Performed By: #### U AMIC, UA #### [address] [address] Chloride [Moles/Vol] 102 mmol/L Normal 98-110 [facility] ([place]) Comment on above: Performed By: #### U AMIC, UA #### [address] [address] CO2 [Moles/Vol] 30 mmol/L Normal 22-32 [facility] ([place]) Comment on above: Performed By: #### U AMIC, UA #### [address] [address] Creatinine [Mass/Vol] 0.98 mg/dL Normal 0.50-1.20 [facility] ([place]) Comment on above: Performed By: #### U AMIC, UA #### [address] [address] Electrolyte Balance 7.0 mEq/L Normal 4.0-15.0 [facility] ([place]) Comment on above: Performed By: #### U ROMA, UA #### [address] [address] Glucose [Mass/Vol] 93 mg/dL Normal 70-110 [facility] ([place]) Comment on above: Performed By: #### U ROMA, UA #### [address] [address] Potassium [Moles/Vol] 4.2 mmol/L Normal 3.5-5.0 [facility] ([place]) Comment on above: Performed By: #### Sandrine BRANDON, UA #### [address] [address] Sodium [Moles/Vol] 139 mmol/L Normal 136-145 [facility] ([place]) Comment on above: Performed By: #### Sandrine BRANDON UA #### [address] [address] Urea nitrogen [Mass/Vol] 9.0 mg/dL Normal 8.0-22.0 [facility] ([place]) Comment on above: Performed By: #### Sandrine BRANDON UA #### [address] [address] CBCon 02-21-2023 Erythrocyte distribution width (RBC) [Ratio] 14.7 % Normal 11.5-15.5 [facility] ([place]) Comment on above: Performed By: #### U BIANCAC, UA #### [address] [address] Hematocrit (Bld) [Volume fraction] 40.9 % Normal 34.0-46.0 [facility] ([place]) Comment on above: Performed By: #### U ROMA UA #### [address] [address] Hgb 13.6 G/dL Normal 12.0-16.0 [facility] ([place]) Comment on above: Performed By: #### U AMIC, UA #### [address] [address] MCH (RBC) [Entitic mass] 29.8 pg Normal 27.0-33.0 [facility] ([place]) Comment on above: Performed By: #### Sandrine BRANDON, UA #### [place] [address] MCHC 33.1 G/dL Normal 32.0-36.0 [facility] ([place]) Comment on above: Performed By: #### Sandrine BRANDON, UA #### [place] [address] MCV (RBC) [Entitic vol] 89.9 fL Normal 80.0-99.0 [facility] ([place]) Comment on above: Performed By: #### Sandrine BRANDON, UA #### [place] [address] Platelet 235 10 3/mcL Normal 150-450 [facility] ([place]) Comment on above: Performed By: #### Sandrine BRANDON UA #### [place] [address] Platelet mean volume (Bld) [Entitic vol] 9.0 fL Normal 6.6-10.5 [facility] ([place]) Comment on above: Performed By: #### Sandrine BRANDON, UA #### [place] [address] RBC 4.55 10 6/mcL Normal 4.10-5.30 [facility] ([place]) Comment on above: Performed By: #### Sandrine BRANDON, UA #### [place] [address] WBC 6.4 10 3/mcL Normal 4.5-10.8 [facility] ([place]) Comment on above: Performed By: #### Sandrine BRANDON, UA #### [place] [address] CT HEAD OR BRAIN W/O CONTRAS Ton [...] 02/21/2023 6:32:49 PM Ordering Provider: NICOLLE Guardado [facility] ([place]) .Auto Diffon 02-20-2023 Basophil, Absolute 0.1 10 3/mcL Normal 0.0-0.3 [facility] ([place]) Comment on above: Performed By: #### B MP, GFR #### [address] [address] Basophils/100 WBC (Bld) 0.7 % Normal 0.0-2.5 [facility] ([place]) Comment on above: Performed By: #### B MP, GFR #### [address] [address] Eosinophil, Absolute 0.2 10 3/mcL Normal 0.0-0.7 [facility] ([place]) Comment on above: Performed By: #### B MP, GFR #### [address] [address] Eosinophils/100 WBC (Bld) 3.1 % Normal 0.0-6.0 [facility] ([place]) Comment on above: Performed By: #### B MP, GFR #### [address] [address] Lymphocyte, Absolute 2.8 10 3/mcL Normal 0.9-4.3 [facility] ([place]) Comment on above: Performed By: #### B MP, GFR #### [address] [address] Lymphocytes/100 WBC (Bld) 39.5 % Normal 20.0-40.0 [facility] ([place]) Comment on above: Performed By: #### B MP, GFR #### [address] [address] Monocyte, Absolute 0.5 10 3/mcL Normal 0.1-1.4 [facility] ([place]) Comment on above: Performed By: #### B MP, GFR #### [address] [address] Monocytes/100 WBC (Bld) 7.2 % Normal 2.0-13.0 [facility] ([place]) Comment on above: Performed By: #### B MP, GFR #### [address] [address] Neutrophils/100 WBC (Bld) 49.5 % Low 50.0-75.0 [facility] ([place]) Comment on above: Performed By: #### B MP, GFR #### [address] [address] .GFRon 02-20-2023 GFR Non- >60 Normal [facility] ([place]) Comment on above: Result Comment: GFR Population [...] Performed By: #### B MP, GFR #### [address] [address] GFR >60 Normal [facility] ([place] Comment on above: Result Comment: GFR Population [...] Performed By: #### B MP, GFR #### [address] [address] GFR >60 Normal [facility] ([place] Comment on above: Result Comment: GFR Population [...] meters Performed By: #### E SR #### [address] [address] GFR Non- >60 Normal [facility] ([place]) Comment on above: Result Comment: GFR Population [...] meters Performed By: #### E SR #### [address] [address] .NEUABSon 02-20-2023 Neutrophil, Absolute 3.5 10 3/mcL Normal 2.3-8.1 [facility] ([place]) Comment on above: Performed By: #### B MP, GFR #### [address] [address] BMPon 02-20-2023 BUN/Creatinine Ratio 8.2 ratio Low 10.0-22.0 [facility] ([place]) Comment on above: Performed By: #### B MP, GFR #### [address] [address] Calcium [Mass/Vol] 9.3 mg/dL Normal 8.7-10.4 [facility] ([place]) Comment on above: Performed By: #### B MP, GFR #### [address] [address] Chloride [Moles/Vol] 106 mmol/L Normal 98-110 [facility] ([place]) Comment on above: Performed By: #### B MP, GFR #### [address] [address] CO2 [Moles/Vol] 28 mmol/L Normal 22-32 [facility] ([place]) Comment on above: Performed By: #### B MP, GFR #### [address] [address] Creatinine [Mass/Vol] 0.97 mg/dL Normal 0.50-1.20 [facility] ([place]) Comment on above: Performed By: #### B MP, GFR #### [address] [address] Electrolyte Balance 6.0 mEq/L Normal 4.0-15.0 [facility] ([place]) Comment on above: Performed By: #### B MP, GFR #### [address] [address] Glucose [Mass/Vol] 86 mg/dL Normal 70-110 [facility] ([place]) Comment on above: Performed By: #### B MP, GFR #### [address] [address] Potassium [Moles/Vol] 4.3 mmol/L Normal 3.5-5.0 [facility] ([place]) Comment on above: Performed By: #### B MP, GFR #### [address] [address] Sodium [Moles/Vol] 140 mmol/L Normal 136-145 [facility] ([place]) Comment on above: Performed By: #### B MP, GFR #### [address] [address] Urea nitrogen [Mass/Vol] 8.0 mg/dL Normal 8.0-22.0 [facility] ([place]) Comment on above: Performed By: #### B MP, GFR #### [address] [address] CBCon 02-20-2023 Erythrocyte distribution width (RBC) [Ratio] 14.8 % Normal 11.5-15.5 [facility] ([place]) Comment on above: Performed By: #### B MP, GFR #### [address] [address] Hematocrit (Bld) [Volume fraction] 35.9 % Normal 34.0-46.0 [facility] ([place] Comment on above: Performed By: #### B MP, GFR #### [address] [address] Hgb 11.6 G/dL Low 12.0-16.0 [facility] ([place]) Comment on above: Performed By: #### B MP, GFR #### [address] [address] MCH (RBC) [Entitic mass] 29.2 pg Normal 27.0-33.0 [facility] ([place]) Comment on above: Performed By: #### B MP, GFR #### [place] [address] MCHC 32.4 G/dL Normal 32.0-36.0 [facility] ([place]) Comment on above: Performed By: #### B MP, GFR #### [place] [address] MCV (RBC) [Entitic vol] 90.0 fL Normal 80.0-99.0 [facility] ([place]) Comment on above: Performed By: #### B MP, GFR #### [place] [address] Platelet 225 10 3/mcL Normal 150-450 [facility] ([place]) Comment on above: Performed By: #### B MP, GFR #### [place] [address] Platelet mean volume (Bld) [Entitic vol] 9.1 fL Normal 6.6-10.5 [facility] ([place]) Comment on above: Performed By: #### B MP, GFR #### [place] [address] RBC 3.99 10 6/mcL Low 4.10-5.30 [facility] ([place]) Comment on above: Performed By: #### B MP, GFR #### [place] [address] WBC 7.1 10 3/mcL Normal 4.5-10.8 [facility] ([place]) Comment on above: Performed By: #### B MP, GFR #### [place] [address] CMPon 02-20-2023 Albumin Level 3.5 G/dL Normal 3.2-4.8 [facility] ([place]) Comment on above: Performed By: #### E SR #### [address] [address] Albumin/Globulin [Mass ratio] 1.1 {ratio} Normal 0.9-1.6 [facility] ([place]) Comment on above: Performed By: #### E SR #### [place] [id number] ALP [Catalytic activity/Vol] 106 U/L Normal 38-126 [facility] [facility] ([place] Comment on above: Performed By: #### E SR #### [place] [id number] ALT [Catalytic activity/Vol] 19 U/L Normal 10-49 [facility] ([place]) Comment on above: Performed By: #### E SR #### [place] [id number] AST [Catalytic activity/Vol] 14 U/L Normal 8-34 [facility] ([place]) Comment on above: Performed By: #### E SR #### [place] [id number] Bili Total 0.50 mg/dL Normal 0.20-1.20 [facility] ([place]) Comment on above: Result Comment: Use of this assay is not recommended for patients undergoing treatment with eltrombopag due to the potential for falsely elevated results. Performed By: #### E SR #### [place] [id number] BUN/Creatinine Ratio 8.2 ratio Low 10.0-22.0 [facility] ([place]) Comment on above: Performed By: #### E SR #### [place] [id number] Calcium [Mass/Vol] 9.1 mg/dL Normal 8.7-10.4 [facility] ([place]) Comment on above: Performed By: #### E SR #### [place] [id number] Chloride [Moles/Vol] 108 mmol/L Normal 98-110 [facility] ([place]) Comment on above: Performed By: #### E SR #### [place] [id number] CO2 [Moles/Vol] 28 mmol/L Normal 22-32 [facility] ([place]) Comment on above: Performed By: #### E SR #### [address] [address] Creatinine [Mass/Vol] 0.98 mg/dL Normal 0.50-1.20 [facility] ([place]) Comment on above: Performed By: #### E SR #### [address] [address] Electrolyte Balance 4.0 mEq/L Normal 4.0-15.0 [facility] ([place]) Comment on above: Performed By: #### E SR #### [address] [address] Globulin 3.3 G/dL Normal 1.5-3.8 [facility] ([place]) Comment on above: Performed By: #### E SR #### [place] [id number] Glucose [Mass/Vol] 91 mg/dL Normal 70-110 [facility] ([place]) Comment on above: Performed By: #### E SR #### [address] [address] Potassium [Moles/Vol] 3.9 mmol/L Normal 3.5-5.0 [facility] ([place]) Comment on above: Performed By: #### E SR #### [address] [address] Sodium [Moles/Vol] 140 mmol/L Normal 136-145 [facility] ([place]) Comment on above: Performed By: #### E SR #### [address] [address] Total Protein 6.8 G/dL Normal 5.7-8.2 [facility] ([place]) Comment on above: Result Comment: No te - New Reference Range in effect 20 Performed By: #### E SR #### [address] [address] Urea nitrogen [Mass/Vol] 8.0 mg/dL Normal 8.0-22.0 [facility] ([place]) Comment on above: Performed By: #### E SR #### [address] [address] LIPIDon 02-20-2023 Cholesterol [Mass/Vol] 232 mg/dL High 50-199 [facility] ([place]) Comment on above: Result Comment: Chol esterol Reference Interval: Less than 200 Desirable 200-239 Borderline high risk 240 and above High risk Performed By: #### B MP, GFR #### [address] [address] Cholesterol in HDL [Mass/Vol] 34 mg/dL Low 40-59 [facility] ([place]) Comment on above: Performed By: #### B MP, GFR #### [place] [id number] Cholesterol in LDL [Mass/Vol] 131 mg/dL High 0-129 [facility] ([place]) Comment on above: Performed By: #### B MP, GFR #### [address] [address] Triglyceride [Mass/Vol] 334 mg/dL High 3-149 [facility] ([place]) Comment on above: Performed By: #### B MP, GFR #### [address] [address] NAURon 02-20-2023 Sodium [Moles/Vol] 145 mmol/L Normal [facility] ([place]) Comment on above: Performed By: #### P RO #### [place] [address] OSMOSon 02-20-2023 Osmolality [Osmolality] 287 mosm/kg Normal 275-300 [facility] ([place]) Comment on above: Performed By: #### O SMOS ####[address] [address] OSMOUon 02-20-2023 U Osmolality 598 mOsm/kg Normal 390-1090 [facility] ([place]) Comment on above: Performed By: #### P RO #### [address] [address] PBNPon 02-20-2023 Natriuretic peptide B (Bld) [Mass/Vol] 22 pg/mL Normal 0-450 [facility] ([place]) Comment on above: Result Comment: NT-p roBNP results of less than 300 pg/mL effectively rules out acute congestive heart failure with 99% negative predictive value. Performed By: #### B MP, GFR #### [place] [address] TSHon 02-20-2023 TSH 5.211 mIU/mL High 0.550-4.780 [facility] ([place]) Comment on above: Result Comment: No te - New Reference Range in effect 20 Performed By: #### E SR #### [place] [id number] UAon 02-20-2023 Color (U) Yellow Normal [facility] ([place]) Comment on above: Performed By: #### E SR #### [place] [address] Glucose (U) [Mass/Vol] Negative Normal Negative [facility] ([place]) Comment on above: Performed By: #### E SR #### [place] [address] Ketones Ql (U) Negative Normal Neg-Trace [facility] ([place]) Comment on above: Performed By: #### E SR #### [place] [address] UA Appear Clear Normal Clear [facility] ([place]) Comment on above: Performed By: #### E SR #### [place] [id number] UA Blood Negative Normal Neg-Trace [facility] ([place]) Comment on above: Performed By: #### E SR #### [address] [address] UA Leuk Est Negative Normal Negative [facility] ([place]) Comment on above: Performed By: #### E SR #### [address] [address] UA Nitrite Negative Normal Negative [facility] ([place]) Comment on above: Performed By: #### E SR #### [place] [address] UA pH 5.5 Normal 5.0 - 8.0 [facility] ([place]) Comment on above: Performed By: #### E SR #### [place] [address] [place] [address] UA Protein Negative Normal Negative [facility] ([place]) Comment on above: Performed By: #### E SR #### [address] [address] UA Spec Grav 1.015 Normal 1.006-1.029 [facility] ([place]) Comment on above: Performed By: #### E SR #### [address] [address] UA Specimen Type Clean Catch Normal [facility] ([place]) Comment on above: Performed By: #### E SR #### [address] [address] UA Urobilinogen 0.2 E.U./dL Normal 0.2-1.0 [facility] ([place]) Comment on above: Performed By: #### E SR #### [address] [address] Urobilinogen (U) [Mass/Vol] Negative Normal Neg-Trace [facility] ([place]) Comment on above: Performed By: #### E SR #### [address] [address] XR CHEST 1 VIEWon 02-20-2023 XR CHEST [...] Date: 02/20/2023 7:47:12 AM Ordering Provider: [facility] ([place]) CBC W Auto Differential pane l (Bld)on 02-16-2023 Basophils (Bld) [#/Vol] 0.05 10*3/uL <0.11 k/uL [facility] Basophils/100 WBC (Bld) 0.6 % [facility] Differential cell count method Nom (Bld) Auto [facility] Eosinophils (Bld) [#/Vol] 0.19 10*3/uL <0.46 k/uL [facility] Eosinophils/100 WBC (Bld) 2.4 % [facility] Erythrocyte distribution width (RBC) [Ratio] 13.8 % 11.5 - 15.0 % [facility] Hematocrit (Bld) [Volume fraction] 41.0 % 36.0 - 46.0 % [facility] Hemoglobin (Bld) [Mass/Vol] 13.3 g/dL 11.5 - 15.5 g/dL [facility] Immature granulocytes (Bld) [#/Vol] 0.07 10*3/uL <0.10 k/uL [facility] Immature granulocytes/100 WBC (Bld) 0.9 % [facility] Lymphocytes (Bld) [#/Vol] 2.18 10*3/uL 1.00 - 4.00 k/uL [facility] Lymphocytes/100 WBC (Bld) 28.1 % [facility] MCH (RBC) [Entitic mass] 30.2 pg 26.0 - 34.[address] [facility] MCHC (RBC) [Mass/Vol] 32.4 g/dL 30.5 - 36.0 g/dL [facility] MCV (RBC) [Entitic vol] 93.0 fL 80.0 - 100.[address] [facility] Monocytes (Bld) [#/Vol] 0.40 10*3/uL <0.87 k/uL [facility] Monocytes/100 WBC (Bld) 5.1 % [facility] Neutrophils (Bld) [#/Vol] 4.88 10*3/uL 1.45 - 7.50 k/uL [facility] Neutrophils/100 WBC (Bld) 62.9 % [facility] Nucleated RBC (Bld) [#/Vol] <0.01 k/uL [facility] Nucleated RBC/100 WBC (Bld) [Ratio] 0.0 /[address] [facility] Platelet mean volume (Bld) [Entitic vol] 11.4 fL 9.0 - 12.[address] [facility] Platelets (Bld) [#/Vol] 269 10*3/uL 150 - 400 k/uL [facility] RBC (Bld) [#/Vol] 4.41 10*6/uL 3.90 - 5.2 0 m/uL [facility] WBC (Bld) [#/Vol] 7.77 10*3/uL 3.70 - 11. 00 k/uL [facility] Comprehensive metabolic 2000 panelon 02-16-2023 Albumin [Mass/Vol] 4.6 g/dL 3.9 - 4.9 g/dL [facility] ALP [Catalytic activity/Vol] 123 U/L 34 - 123 U/L [facility] ALT [Catalytic activity/Vol] 17 U/L 7 - 38 U/L [facility] Anion gap [Moles/Vol] 12 mmol/L 9 - 18 mmol/L [facility] AST [Catalytic activity/Vol] 13 U/L 13 - 35 U/L [facility] Bilirubin [Mass/Vol] 0.7 mg/dL 0.2 - 1 .3 mg/dL [facility] Calcium [Mass/Vol] 9.9 mg/dL 8.5 - 10. 2 mg/dL [facility] Chloride [Moles/Vol] 102 mmol/L 97 - 10 5 mmol/L [facility] CO2 [Moles/Vol] 24 mmol/L 22 - 30 mmol/L [facility] Creatinine [Mass/Vol] 1.10 mg/dL High 0.58 - 0.96 mg/dL [facility] Estimated Glomerular Filtration Rate 64 mL/min/1.73m >=60 mL/min/1.73m [facility] Glucose [Mass/Vol] 104 mg/dL High 74 - 99 mg/dL [facility] Potassium [Moles/Vol] 4.3 mmol/L 3.7 - 5.1 mmol/L [facility] Protein [Mass/Vol] 7.5 g/dL 6.3 - 8.0 g/dL [facility] Sodium [Moles/Vol] 138 mmol/L 136 - 144 mmol/L [facility] Urea nitrogen [Mass/Vol] 14 mg/dL 7 - 21 mg/dL [facility] HEP C AB IA W/CONF SCRNon HCV Ab Ql (S) Negative Negative [facility] HIV 1+2 Ab IA Qlon 3 HIV 1 and 2 Ab IA.rapid Nom [facility] HIV 1+2 Ab+HIV1 p24 Ag IA Ql Non-Reactive Nonreactive [facility] HIV Interpretation [facility] Iron and Iron binding capaci ty panelon 02-16-2023 Iron [Mass/Vol] 55 ug/dL 41 - 186 ug/dL [facility] Iron binding capacity [Mass/Vol] 328 ug/dL 232 - 386 ug/dL [facility] Iron/TIBC [Molar ratio] 16.8 % 15.0 - 57.0 % [facility] Lipid 1996 panelon Cholesterol [Mass/Vol] 292 mg/dL High <200 mg/dL [facility] Cholesterol in HDL [Mass/Vol] 45 mg/dL >39 mg/dL [facility] Cholesterol in LDL [Mass/Vol] 211 mg/dL High <100 mg/dL [facility] Cholesterol in LDL/Cholesterol in HDL [Mass ratio] 4.69 {ratio} High <2.[address] [facility] Cholesterol in VLDL [Mass/Vol] 36 mg/dL High <30 mg/dL [facility] Cholesterol non HDL [Mass/Vol] 247 mg/dL High <130 mg/dL [facility] Cholesterol.total/Evan sterol in HDL [Mass ratio] 6.49 {ratio} High <5.[address] [facility] Fasting Time [address] [facility] Triglyceride [Mass/Vol] 179 mg/dL High <150 mg/dL [facility] MAGNESIUM [facility] 02-16-2023 Magnesium [Mass/Vol] 2.1 mg/dL 1.7 - 2 .3 mg/dL [facility] TSH [facility] 02-16-2023 TSH Qn 2.220 m[IU]/L 0.270 - 4.200 mIU/L [facility] VITAMIN B12 BLOODon 02-17-20 Cobalamin (Vitamin B12) [Mass/Vol] 297 pg/mL 232 - 1,245 pg/mL [facility] VITAMIN D 25 HYDROXYon 02-16 25-hydroxyvitamin D3 [Mass/Vol] 24.6 ng/mL Low 31.0 - 80.0 ng/mL [facility] Absolute lymphocyte countOrd ered By: Dr. Rosa on 02-10-2023 Lymphocytes Auto (Unsp spec) [#/Vol] 2.82 10*3/uL 0.83-4.51 [facility] Basophil percentageOrdered B y: Dr. Rosa on 02-10-2023 Basophils/100 WBC (Bld) 0.7 % 0-1 [facility] Bilirubin [Mass/Vol] 0.40 mg/dL 0.20-1.00 [facility] Comment on above: For patients on eltr ombopag therapy, use of Dimension Lutz TBIL is not recommended. Chloride [Moles/Vol] 104 mmol/L 98-107 [facility] Eosinophils/100 WBC (Bld) 2.4 % 0-5 [facility] Glucose [Mass/Vol] 96 mg/dL 74-106 [facility] Lactate [Moles/Vol] 0.4 mmol/L 0.4-2.0 [facility] Neutrophils (Bld) [#/Vol] 5.7 10*3/uL 2.0-7.7 [facility] Neutrophils/100 WBC (Bld) 60.2 % 47-70 [facility] Potassium [Moles/Vol] 3.6 mmol/L 3.5-5.1 [facility] Protein [Mass/Vol] 7.7 g/dL 6.4-8.2 [facility] Sodium [Moles/Vol] 138 mmol/L 136-145 [facility] WBC (Bld) [#/Vol] 9.4 10*3/uL 4.4-11.0 [facility] Basophil percentage 0 SEEN /hpf 0-5 [facility] Bilirubin Test strip Ql (U)O rdered By: Dr. Rosa on 02-10-2023 Bilirubin Ql (U) Negative Negative [facility] Blood erythrocytes count (nu mber/volume)Ordered By: Dr. Rosa on 02-10-2023 RBC (Bld) [#/Vol] 4.38 10*6/uL 4.2-5.4 [facility] Blood hemoglobin measurement (mass/volume)Ordered By: Dr. Rosa on 02-10-2023 Hemoglobin (Bld) [Mass/Vol] 12.9 g/dL 12.0-15.0 [facility] Blood lymphocytes/100 leukoc ytesOrdered By: Dr. Rosa on 02-10-2023 Lymphocytes/100 WBC (Bld) 29.9 % 19-41 [facility] Blood monocytes/100 leukocyt esOrdered By: Dr. Rosa on 02-10-2023 Monocytes/100 WBC (Bld) 5.3 % 0-10 [facility] Blood platelet mean volumeOr dered By: Dr. Rosa on 02-10-2023 Platelet mean volume (Bld) [Entitic vol] 10.7 fL 6.2-12.0 [facility] Determination of erythrocyte mean corpuscular volume (MCV)Ordered By: Dr. Rosa on 02-10-2023 MCV (RBC) [Entitic vol] 92.0 fL 81-99 [facility] Hematocrit Auto (Bld) [Volum e fraction]Ordered By: Dr. Rosa on 02-10-2023 Hematocrit (Bld) [Volume fraction] 40.3 % 37-47 [facility] Ketones Test strip Ql (U)Ord ered By: Dr. Rosa on 02-10-2023 Ketones Ql (U) Negative Negative [facility] Laboratory - Chemistry and C hemistry - challengeOrdered By: Dr. Rosa on 02-10-2023 ALP [Catalytic activity/Vol] 116 U/L 45-117 [facility] ALT [Catalytic activity/Vol] 24 U/L 13-56 [facility] CO2 [Moles/Vol] 29.0 mmol/L 21.0-32.0 [facility] Globulin (S) [Mass/Vol] 3.8 g/dL 2.2-4.2 [facility] Lipase [Catalytic activity/Vol] 37 U/L 13-75 [facility] Comment on above: Please note:LIPASE r evised reference range effective 22. New Lipase methodology. Expected to produce lower values than the previous assay method. NEW Reference Range: 13 - 75 U/L Urea nitrogen/Creatinine [Mass ratio] 9.3 mg/mg 10-20 [facility] HCG ( test) Ql (U) Negative [facility] Comment on above: Very dilute urine sp ecimens, as indicated by a low specificgravity, may not contain petroleum products sales representative levels of hCG. If is still suspected, a first morning urinespecimen should be collected 48 hours later and tested. Laboratory - Hematology and Cell countsOrdered By: Dr. Rosa on 02-10-2023 Erythrocyte distribution width (RBC) [Entitic vol] 45.7 fL 35.1-43.9 [facility] Erythrocyte distribution width (RBC) [Ratio] 13.6 % 11.6-14.6 [facility] Immature granulocytes/100 WBC (Bld) 1.500 % 0.0-0.9 [facility] Comment on above: IG% - Immature Granu locytes (promyelocytes, myelocytes and metamyelocytes) > 1% indicates that a LEFT SHIFT is Present. MCH (RBC) [Entitic mass] 29.5 pg 27.0-32.0 [facility] Nucleated RBC/100 WBC (Bld) [Ratio] 0 % 0-5 [facility] MCHC Auto (RBC) [Mass/Vol]Or dered By: Dr. Rosa on 02-10-2023 MCHC (RBC) [Mass/Vol] 32.0 g/dL 32-36 [facility] Mucus LM Ql (Urine sed)Order ed By: Dr. Rosa on 02-10-2023 Mucus Ql (Urine sed) 0 SEEN /hpf [facility] Nitrite Test strip Ql (U)Ord ered By: Dr. Rosa on 02-10-2023 Nitrite Ql (U) Negative Negative [facility] No Panel InformationOrdered By: Dr. Rosa on 02-10-2023 Estimated Creatinine Clearance Calc 50.68 ml/min [facility] Estimated GFR (MDRD) Amer 71 mL/min >60 [facility] Comment on above: GFR Calc Estimated GFR (MDRD) Non-Af Amer 59 mL/min >60 [facility] Comment on above: Non- GFR Calc Troponin I High Sensitivity 5 pg/mL 3.0-54.0 [facility] Comment on above: Please Note: New Maru t Units and Gender Specific Reference Ranges. For more information see Policy Stat Procedure Lutz High Sensitivity Troponin (TNIH) and attachments. Platelets bldOrdered By: Dr. Rosa on 02-10-2023 Platelets (Bld) [#/Vol] 244 10*3/uL 150-450 [facility] Protein Test strip Ql (U)Ord ered By: Dr. Rosa on 02-10-2023 Protein Ql (U) Negative Negative [facility] Serum or plasma albumin shelley urement (mass/volume)Ordered By: Dr. Rosa on 02-10-2023 Albumin [Mass/Vol] 3.9 g/dL 3.2-5.0 [facility] Serum or plasma albumin/glob ulin mass ratioOrdered By: Dr. Rosa on 02-10-2023 Albumin/Globulin [Mass ratio] 1.0 {ratio} 0.9-2.4 [facility] Serum or plasma calcium shelley urement (mass/volume)Ordered By: Dr. Rosa on 02-10-2023 Calcium [Mass/Vol] 9.3 mg/dL 8.5-10.1 [facility] Serum or plasma creatinine m easurement (mass/volume)Ordered By: Dr. Rosa on 02-10-2023 Creatinine [Mass/Vol] 1.08 mg/dL 0.55-1.02 [facility] Comment on above: The validity of the calculated GFR & GFRAA in patients over 70 years has not been determined. Clinical correlation is essential. Serum or plasma urea nitroge n measurement (mass/volume)Ordered By: Dr. Rosa on 02-10-2023 Urea nitrogen [Mass/Vol] 10 mg/dL 7-18 [facility] Squamous epithelial cells de tection in urine sediment by light microscopyOrdered By: Dr. Rosa on 02-10-2023 Epithelial cells.squamous LM Ql (Urine sed) 10-25 SEEN /hpf 5-10 [facility] Thin prep Papanicolaou smear with manual screeningOrdered By: Dr. Rosa on 02-10-2023 Thin prep Papanicolaou smear with manual screening 16 U/L 15-37 [facility] Thin prep Papanicolaou smear with manual screening 5 5-15 [facility] Urine blood detectionOrdered By: Dr. Rosa on 02-10-2023 RBC Ql (U) Negative Negative [facility] RBC Ql (U) 0 SEEN /hpf 0-5 [facility] Urine clarityOrdered By: Dr. Rosa on 02-10-2023 Clarity (U) Sl. Cloudy Clear [facility] Urine color determinationOrd ered By: Dr. Rosa on 02-10-2023 Color (U) Yellow Yellow [facility] Urine glucose detectionOrder ed By: Dr. Rosa on 02-10-2023 Glucose Ql (U) Normal mg/dl Normal [facility] Urine leukocyte esterase det ection by dipstickOrdered By: Dr. Rosa on 02-10-2023 Leukocyte esterase Test strip Ql (U) Negative Negative [facility] Urine pHOrdered By: Dr. Rosa on 02-10-2023 pH (U) 6.5 [pH] 5.0 - 8.0 [facility] Urine sediment bacteria coun t by microscopy (number/high power field)Ordered By: Dr. Rosa on 02-10-2023 Bacteria LM.HPF (Urine sed) [#/Area] 1 /[HPF] None Seen [facility] Urine specific gravity measu rementOrdered By: Dr. Rosa on 02-10-2023 Specific gravity (U) [Rel density] 1.015 1.002-1.030 [facility] Urobilinogen Auto test strip Ql (U)Ordered By: Dr. Rosa on 02-10-2023 Urobilinogen Ql (U) Normal mg/dl Normal [facility] LABORATORYOrdered By: SYSTEM SYSTEM on 12-24-2022 Albumin [...] Auto (Unsp spec) [#/Vol] 2.42 10*3/uL 0.83-4.51 [facility] Basophil percentageOrdered B y: Dr. Hood on 11-18-2022 Basophil percentage 0 SEEN /hpf 0-5 [facility] Basophils/100 WBC (Bld) 0.7 % 0-1 [facility] Bilirubin [Mass/Vol] 0.40 mg/dL 0.20-1.00 [facility] Comment on above: For patients on eltr ombopag therapy, use of Dimension Lutz TBIL is not recommended. Chloride [Moles/Vol] 105 mmol/L 98-107 [facility] Eosinophils/100 WBC (Bld) 3.0 % 0-5 [facility] Glucose [Mass/Vol] 110 mg/dL 74-106 [facility] Comment on above: Fasting Glucose resu lt from 100 to 125 mg/dL suggests IMPAIRED HOMEOSTASIS per A.D.A. criteria. Neutrophils (Bld) [#/Vol] 4.8 10*3/uL 2.0-7.7 [facility] Neutrophils/100 WBC (Bld) 58.9 % 47-70 [facility] Potassium [Moles/Vol] 4.2 mmol/L 3.5-5.1 [facility] Protein [Mass/Vol] 7.5 g/dL 6.4-8.2 [facility] Sodium [Moles/Vol] 140 mmol/L 136-145 [facility] WBC (Bld) [#/Vol] 8.1 10*3/uL 4.4-11.0 [facility] Bilirubin Test strip Ql (U)O rdered By: Dr. Hood on 11-18-2022 Bilirubin Ql (U) Negative Negative [facility] Blood erythrocytes count (nu mber/volume)Ordered By: Dr. Hood on 11-18-2022 RBC (Bld) [#/Vol] 4.02 10*6/uL 4.2-5.4 [facility] Blood hemoglobin measurement (mass/volume)Ordered By: Dr. Hood on 11-18-2022 Hemoglobin (Bld) [Mass/Vol] 11.9 g/dL 12.0-15.0 [facility] Blood lymphocytes/100 leukoc ytesOrdered By: Dr. Hood on 11-18-2022 Lymphocytes/100 WBC (Bld) 29.9 % 19-41 [facility] Blood monocytes/100 leukocyt esOrdered By: Dr. Hood on 11-18-2022 Monocytes/100 WBC (Bld) 5.8 % 0-10 [facility] Blood platelet mean volumeOr dered By: Dr. Hood on 11-18-2022 Platelet mean volume (Bld) [Entitic vol] 11.2 fL 6.2-12.0 [facility] Determination of erythrocyte mean corpuscular volume (MCV)Ordered By: Dr. Hood on 11-18-2022 MCV (RBC) [Entitic vol] 92.5 fL 81-99 [facility] Hematocrit Auto (Bld) [Volum e fraction]Ordered By: Dr. Hood on 11-18-2022 Hematocrit (Bld) [Volume fraction] 37.2 % 37-47 [facility] Ketones Test strip Ql (U)Ord ered By: Dr. Hood on 11-18-2022 Ketones Ql (U) Negative Negative [facility] Laboratory - Chemistry and C hemistry - challengeOrdered By: Dr. Hood on 11-18-2022 ALP [Catalytic activity/Vol] 129 U/L 45-117 [facility] ALT [Catalytic activity/Vol] 27 U/L 13-56 [facility] CO2 [Moles/Vol] 30.0 mmol/L 21.0-32.0 [facility] Globulin (S) [Mass/Vol] 3.9 g/dL 2.2-4.2 [facility] Lipase [Catalytic activity/Vol] 137 U/L 73-393 [facility] Urea nitrogen/Creatinine [Mass ratio] 11.2 mg/mg 10-20 [facility] Laboratory - Hematology and Cell countsOrdered By: Dr. Hood on 11-18-2022 Erythrocyte distribution width (RBC) [Entitic vol] 47.9 fL 35.1-43.9 [facility] Erythrocyte distribution width (RBC) [Ratio] 14.1 % 11.6-14.6 [facility] Immature granulocytes/100 WBC (Bld) 1.700 % 0.0-0.9 [facility] Comment on above: IG% - Immature Granu locytes (promyelocytes, myelocytes and metamyelocytes) > 1% indicates that a LEFT SHIFT is Present. MCH (RBC) [Entitic mass] 29.6 pg 27.0-32.0 [facility] Nucleated RBC/100 WBC (Bld) [Ratio] 0 % 0-5 [facility] MCHC Auto (RBC) [Mass/Vol]Or dered By: Dr. Hood on 11-18-2022 MCHC (RBC) [Mass/Vol] 32.0 g/dL 32-36 [facility] Mucus LM Ql (Urine sed)Order ed By: Dr. Hood on 11-18-2022 Mucus Ql (Urine sed) 0 SEEN /hpf [facility] Nitrite Test strip Ql (U)Ord ered By: Dr. Hood on 11-18-2022 Nitrite Ql (U) Negative Negative [facility] No Panel InformationOrdered By: Dr. Hood on 11-18-2022 Estimated Creatinine Clearance Calc 51.16 ml/min [facility] Estimated GFR (MDRD) Amer 72 mL/min >60 [facility] Comment on above: GFR Calc Estimated GFR (MDRD) Non-Af Amer 59 mL/min >60 [facility] Comment on above: Non- GFR Calc Platelets bldOrdered By: Dr. Hood on 11-18-2022 Platelets (Bld) [#/Vol] 223 10*3/uL 150-450 [facility] Protein Test strip Ql (U)Ord ered By: Dr. Hood on 11-18-2022 Protein Ql (U) Negative Negative [facility] Serum or plasma albumin shelley urement (mass/volume)Ordered By: Dr. Hood on 11-18-2022 Albumin [Mass/Vol] 3.6 g/dL 3.2-5.0 [facility] Serum or plasma albumin/glob ulin mass ratioOrdered By: Dr. Hood on 11-18-2022 Albumin/Globulin [Mass ratio] 0.9 {ratio} 0.9-2.4 [facility] Serum or plasma calcium shelley urement (mass/volume)Ordered By: Dr. Hood on 11-18-2022 Calcium [Mass/Vol] 9.3 mg/dL 8.5-10.1 [facility] Serum or plasma creatinine m easurement (mass/volume)Ordered By: Dr. Hood on 11-18-2022 Creatinine [Mass/Vol] 1.07 mg/dL 0.55-1.02 [facility] Comment on above: The validity of the calculated GFR & GFRAA in patients over 70 years has not been determined. Clinical correlation is essential. Serum or plasma urea nitroge n measurement (mass/volume)Ordered By: Dr. Hood on 11-18-2022 Urea nitrogen [Mass/Vol] 12 mg/dL 7-18 [facility] Squamous epithelial cells de tection in urine sediment by light microscopyOrdered By: Dr. Hood on 11-18-2022 Epithelial cells.squamous LM Ql (Urine sed) 25-50 SEEN /hpf 5-10 [facility] Thin prep Papanicolaou smear with manual screeningOrdered By: Dr. Hood on 11-18-2022 Thin prep Papanicolaou smear with manual screening 12 U/L 15-37 [facility] Thin prep Papanicolaou smear with manual screening 5 5-15 [facility] Urine blood detectionOrdered By: Dr. Hood on 11-18-2022 RBC Ql (U) Negative Negative [facility] RBC Ql (U) 0 SEEN /hpf 0-5 [facility] Urine clarityOrdered By: Dr. Hood on 11-18-2022 Clarity (U) Clear Clear [facility] Urine color determinationOrd ered By: Dr. Hood on 11-18-2022 Color (U) Yellow Yellow [facility] Urine glucose detectionOrder ed By: Dr. Hood on 11-18-2022 Glucose Ql (U) Normal mg/dl Normal [facility] Urine leukocyte esterase det ection by dipstickOrdered By: Dr. Hood on 11-18-2022 Leukocyte esterase Test strip Ql (U) Negative Negative [facility] Urine pHOrdered By: Dr. Janice strickland on 11-18-2022 pH (U) 8.0 [pH] 5.0 - 8.0 [facility] Urine sediment bacteria coun t by microscopy (number/high power field)Ordered By: Dr. Hood on 11-18-2022 Bacteria LM.HPF (Urine sed) [#/Area] 0 /[HPF] None Seen [facility] Urine specific gravity measu rementOrdered By: Dr. Hood on 11-18-2022 Specific gravity (U) [Rel density] 1.015 1.002-1.030 [facility] Urobilinogen Auto test strip Ql (U)Ordered By: Dr. Hood on 11-18-2022 Urobilinogen Ql (U) Normal mg/dl Normal [facility] LABORATORYOrdered By: Flora Hassan on 10-12-2022 Appearance [...] Auto (Unsp spec) [#/Vol] 4.36 10*3/uL 0.83-4.51 [facility] Basophil percentageOrdered B y: Dr. Cassidy on 09-07-2022 Basophils/100 WBC (Bld) 0.8 % 0-1 [facility] Chloride [Moles/Vol] 105 mmol/L 98-107 [facility] Eosinophils/100 WBC (Bld) 2.6 % 0-5 [facility] Glucose [Mass/Vol] 139 mg/dL 74-106 [facility] Comment on above: Slight Lipemia, Resu lt may be falsely increased.Fasting Glucose result greater than or equal to 126 mg/dL suggests DIABETES MELLITUS per A.D.A. criteria. Neutrophils (Bld) [#/Vol] 6.5 10*3/uL 2.0-7.7 [facility] Neutrophils/100 WBC (Bld) 53.3 % 47-70 [facility] Potassium [Moles/Vol] 4.1 mmol/L 3.5-5.1 [facility] Comment on above: Slight Hemolysis, Re sult may be falsely increased.-Slight Lipemia, Result may be falsely increased. Sodium [Moles/Vol] 139 mmol/L 136-145 [facility] WBC (Bld) [#/Vol] 12.1 10*3/uL 4.4-11.0 [facility] Blood erythrocytes count (nu mber/volume)Ordered By: Dr. Cassidy on 09-07-2022 RBC (Bld) [#/Vol] 4.49 10*6/uL 4.2-5.4 [facility] Blood hemoglobin measurement (mass/volume)Ordered By: Dr. Cassidy on 09-07-2022 Hemoglobin (Bld) [Mass/Vol] 13.5 g/dL 12.0-15.0 [facility] Blood lymphocytes/100 leukoc ytesOrdered By: Dr. Cassidy on 09-07-2022 Lymphocytes/100 WBC (Bld) 36.0 % 19-41 [facility] Blood monocytes/100 leukocyt esOrdered By: Dr. Cassidy on 09-07-2022 Monocytes/100 WBC (Bld) 5.4 % 0-10 [facility] Blood platelet mean volumeOr dered By: Dr. Cassidy on 09-07-2022 Platelet mean volume (Bld) [Entitic vol] 11.3 fL 6.2-12.0 [facility] Determination of erythrocyte mean corpuscular volume (MCV)Ordered By: Dr. Cassidy on 09-07-2022 MCV (RBC) [Entitic vol] 94.2 fL 81-99 [facility] Hematocrit Auto (Bld) [Volum e fraction]Ordered By: Dr. Cassidy on 09-07-2022 Hematocrit (Bld) [Volume fraction] 42.3 % 37-47 [facility] Laboratory - Chemistry and C hemistry - challengeOrdered By: Dr. Cassidy on 09-07-2022 CO2 [Moles/Vol] 30.0 mmol/L 21.0-32.0 [facility] Comment on above: Slight Lipemia, Resu lt may be falsely increased. Urea nitrogen/Creatinine [Mass ratio] 13.6 mg/mg 10-20 [facility] Laboratory - Drug toxicology Ordered By: Dr. Cassidy on 09-07-2022 Amphetamines Ql (U) Negative <1000 ng/mL [facility] Benzodiazepines Ql (U) Negative < 200 ng/mL [facility] Cannabinoids Screen Ql (U) Negative < 50 ng/mL [facility] Cocaine Ql (U) Negative < 300 ng/mL [facility] Opiates Ql (U) Negative < 300 ng/mL [facility] Laboratory - Hematology and Cell countsOrdered By: Dr. Cassidy on 09-07-2022 Erythrocyte distribution width (RBC) [Entitic vol] 47.4 fL 35.1-43.9 [facility] Erythrocyte distribution width (RBC) [Ratio] 13.8 % 11.6-14.6 [facility] Immature granulocytes/100 WBC (Bld) 1.900 % 0.0-0.9 [facility] Comment on above: IG% - Immature Granu locytes (promyelocytes, myelocytes and metamyelocytes) > 1% indicates that a LEFT SHIFT is Present. MCH (RBC) [Entitic mass] 30.1 pg 27.0-32.0 [facility] Nucleated RBC/100 WBC (Bld) [Ratio] 0 % 0-5 [facility] MCHC Auto (RBC) [Mass/Vol]Or dered By: Dr. Cassidy on 09-07-2022 MCHC (RBC) [Mass/Vol] 31.9 g/dL 32-36 [facility] No Panel InformationOrdered By: Dr. Cassidy on 09-07-2022 MDMA (Ecstasy) Screen Negative < 500 ng/mL [facility] Urine Barbiturates Screen Negative < 200 ng/mL [facility] Urine Drug Screen Comment [facility] Comment on above: CONFIRMATORY TESTING FOR [...] Methadone Screen Negative < 300 ng/mL [facility] Estimated Creatinine Clearance Calc 49.76 ml/min [facility] Estimated GFR (MDRD) Amer 70 mL/min >60 [facility] Comment on above: GFR Calc Estimated GFR (MDRD) Non-Af Amer 58 mL/min >60 [facility] Comment on above: Non- GFR Calc Ethyl Alcohol Level < 3.0 mg/dL [facility] Comment on above: The serum:whole bloo d ethanol ratio is approximately 1.14and varies slightly with hematocrit. Medical Alcohol reference interval and critical value innon-tolerant individuals; 50 - 100 Impairment 100 Intoxication 100 - 250 Severe Poisoning 250 - 400 Deep/possible fatal coma Platelets bldOrdered By: Dr. Cassidy on 09-07-2022 Platelets (Bld) [#/Vol] 287 10*3/uL 150-450 [facility] Serum or plasma calcium shelley urement (mass/volume)Ordered By: Dr. Cassiyd on 09-07-2022 Calcium [Mass/Vol] 9.0 mg/dL 8.5-10.1 [facility] Comment on above: Slight Lipemia, Resu lt may be falsely increased. Serum or plasma creatinine m easurement (mass/volume)Ordered By: Dr. Cassidy on 09-07-2022 Creatinine [Mass/Vol] 1.10 mg/dL 0.55-1.02 [facility] Comment on above: Slight Lipemia, Resu lt may be falsely increased.The validity of the calculated GFR & GFRAA in patients over 70 years has not been determined. Clinical correlation is essential. Serum or plasma urea nitroge n measurement (mass/volume)Ordered By: Dr. Cassidy on 09-07-2022 Urea nitrogen [Mass/Vol] 15 mg/dL 7-18 [facility] Comment on above: Slight Lipemia, Resu lt may be falsely increased. Thin prep Papanicolaou smear with manual screeningOrdered By: Dr. Cassidy on 09-07-2022 Thin prep Papanicolaou smear with manual screening 4 5-15 [facility] Urine phencyclidine (PCP) de tectionOrdered By: Dr. Cassidy on 09-07-2022 Phencyclidine Ql (U) Negative < 25 ng/mL [facility] XR CHEST 2V FRONTAL/LATon [facility] XR Chest PA and Lateralon IMPRESSION: No acute radiographic abnormality. [employer] Supervisor: PSCB Transcribe Date/Time: May 12 2022 5:40P Dictated by : BAM MASON MD This examination was interpreted and the report reviewed and electronically signed by: BAM MASON MD on May 12 2022 5:41PM [facility] DIVISION OF RADIOLOGY * * *Final Report* [...] upper quadrant abdomen. DIVISION OF RADIOLOGY Provider, [facility] Justyna [facility] - 05/12/2022 * * *Final Report* * [...] abdomen. IMPRESSION IMPRESSION: No acute radiographic abnormality. [employer] Supervisor: PSCB Transcribe Date/Time: May 12 2022 5:40P Dictated by : BAM MASON MD This examination was interpreted and the report reviewed and electronically signed by: BAM MASON MD on May 12 2022 5:41PM EST [facility] Radiology Study observation (narrative) [facility] XR Chest PA and LateralOrder ed By: [facility]cf Provider on 05-12-[address] [facility] Absolute lymphocyte counton 04-10-2022 Lymphocytes Auto (Unsp spec) [#/Vol] 3.03 10*3/uL 0.83-4.51 [facility] Work Phone: Amorphous sediment detection in urine sediment by light microscopyon 04-10-2022 Amorphous sediment LM Ql (Urine sed) 1+ [facility] Work Phone: Basophil percentageon 2021 Basophils/100 WBC (Bld) 0.7 % 0-1 [facility] Work Phone: Bilirubin [Mass/Vol] 0.40 mg/dL 0.20-1.00 [facility] Work Phone: Comment on above: For patients on eltr ombopag therapy, use of Dimension Lutz TBIL is not recommended. Chloride [Moles/Vol] 105 mmol/L 98-107 [facility] Work Phone: Eosinophils/100 WBC (Bld) 3.2 % 0-5 [facility] Work Phone: Glucose [Mass/Vol] 105 mg/dL 74-106 [facility] Work Phone: Comment on above: Fasting Glucose resu lt from 100 to 125 mg/dL suggests IMPAIRED HOMEOSTASIS per A.D.A. criteria. Neutrophils (Bld) [#/Vol] 4.8 10*3/uL 2.0-7.7 [facility] Work Phone: Neutrophils/100 WBC (Bld) 53.8 % 47-70 [facility] Work Phone: Potassium [Moles/Vol] 5.0 mmol/L 3.5-5.1 [facility] Work Phone: Comment on above: Moderate Hemolysis, Result may be falsely increased. Protein [Mass/Vol] 7.9 g/dL 6.4-8.2 [facility] Work Phone: Sodium [Moles/Vol] 137 mmol/L 136-145 [facility] Work Phone: WBC (Bld) [#/Vol] 8.8 10*3/uL 4.4-11.0 [facility] Work Phone: Basophil percentage 0-5 SEEN /hpf 0-5 [facility] Work Phone: Bilirubin Test strip Ql (U)o n 04-10-2022 Bilirubin Ql (U) Negative Negative [facility] Work Phone: Blood erythrocytes count (nu mber/volume)on 04-10-2022 RBC (Bld) [#/Vol] 4.35 10*6/uL 4.2-5.4 [facility] Work Phone: Blood hemoglobin measurement (mass/volume)on 04-10-2022 Hemoglobin (Bld) [Mass/Vol] 12.6 g/dL 12.0-15.0 [facility] Work Phone: Blood lymphocytes/100 leukoc yteson 04-10-2022 Lymphocytes/100 WBC (Bld) 34.3 % 19-41 [facility] Work Phone: Blood monocytes/100 leukocyt eson 04-10-2022 Monocytes/100 WBC (Bld) 6.4 % 0-10 [facility] Work Phone: Blood platelet mean volumeon 04-10-2022 Platelet mean volume (Bld) [Entitic vol] 10.7 fL 6.2-12.0 [facility] Work Phone: Determination of erythrocyte mean corpuscular volume (MCV)on 04-10-2022 MCV (RBC) [Entitic vol] 89.4 fL 81-99 [facility] Work Phone: Direct bilirubinon 2 Bilirubin.direct [Mass/Vol] 0.06 mg/dL 0.00-0.30 [facility] Work Phone: Hematocrit Auto (Bld) [Volum e fraction]on 04-10-2022 Hematocrit (Bld) [Volume fraction] 38.9 % 37-47 [facility] Work Phone: Ketones Test strip Ql (U)on 04-10-2022 Ketones Ql (U) Negative Negative [facility] Work Phone: Laboratory - Chemistry and C hemistry - challengeon 04-10-2022 ALP [Catalytic activity/Vol] 129 U/L 45-117 [facility] Work Phone: ALT [Catalytic activity/Vol] 33 U/L 13-56 [facility] Work Phone: CO2 [Moles/Vol] 27.0 mmol/L 21.0-32.0 [facility] Work Phone: Globulin (S) [Mass/Vol] 4.2 g/dL 2.2-4.2 [facility] Work Phone: Lipase [Catalytic activity/Vol] 191 U/L 73-393 [facility] Work Phone: Urea nitrogen/Creatinine [Mass ratio] 13.6 mg/mg 10-20 [facility] Work Phone: Laboratory - Hematology and Cell countson 04-10-2022 Erythrocyte distribution width (RBC) [Entitic vol] 48.2 fL 35.1-43.9 [facility] Work Phone: Erythrocyte distribution width (RBC) [Ratio] 14.8 % 11.6-14.6 [facility] Work Phone: Immature granulocytes/100 WBC (Bld) 1.600 % 0.0-0.9 [facility] Work Phone: Comment on above: IG% - Immature Granu locytes (promyelocytes, myelocytes and metamyelocytes) > 1% indicates that a LEFT SHIFT is Present. MCH (RBC) [Entitic mass] 29.0 pg 27.0-32.0 [facility] Work Phone: Nucleated RBC/100 WBC (Bld) [Ratio] 0 % 0-5 [facility] Work Phone: MCHC Auto (RBC) [Mass/Vol]on 04-10-2022 MCHC (RBC) [Mass/Vol] 32.4 g/dL 32-36 [facility] Work Phone: Mucus LM Ql (Urine sed)on Mucus Ql (Urine sed) 1+ /hpf [facility] Work Phone: Nitrite Test strip Ql (U)on 04-10-2022 Nitrite Ql (U) Negative Negative [facility] Work Phone: No Panel Informationon 04-10 Estimated Creatinine Clearance Calc 68.27 ml/min [facility] Work Phone: Estimated GFR (MDRD) Amer 100 mL/min >60 [facility] Work Phone: Comment on above: GFR Calc Estimated GFR (MDRD) Non-Af Amer 82 mL/min >60 [facility] Work Phone: Comment on above: Non- GFR Calc Platelets bldon 04-10-2022 Platelets (Bld) [#/Vol] 242 10*3/uL 150-450 [facility] Work Phone: Protein Test strip Ql (U)on 04-10-2022 Protein Ql (U) Negative Negative [facility] Work Phone: Serum or plasma albumin shelley urement (mass/volume)on 04-10-2022 Albumin [Mass/Vol] 3.7 g/dL 3.2-5.0 [facility] Work Phone: Serum or plasma calcium shelley urement (mass/volume)on 04-10-2022 Calcium [Mass/Vol] 9.1 mg/dL 8.5-10.1 [facility] Work Phone: Serum or plasma creatinine m easurement (mass/volume)on 04-10-2022 Creatinine [Mass/Vol] 0.81 mg/dL 0.55-1.02 [facility] Work Phone: Comment on above: The validity of the calculated GFR & GFRAA in patients over 70 years has not been determined. Clinical correlation is essential. Serum or plasma urea nitroge n measurement (mass/volume)on 04-10-2022 Urea nitrogen [Mass/Vol] 11 mg/dL 7-18 [facility] Work Phone: Squamous epithelial cells de tection in urine sediment by light microscopyon 04-10-2022 Epithelial cells.squamous LM Ql (Urine sed) 0-5 SEEN /hpf 5-10 [facility] Work Phone: Thin prep Papanicolaou smear with manual screeningon 04-10-2022 Thin prep Papanicolaou smear with manual screening 29 U/L 15-37 [facility] Work Phone: Comment on above: Moderate Hemolysis, Result may be falsely increased. Thin prep Papanicolaou smear with manual screening 5 5-15 [facility] Work Phone: Urine blood detectionon - RBC Ql (U) Negative Negative [facility] Work Phone: RBC Ql (U) 0 SEEN /hpf 0-5 [facility] Work Phone: Urine clarityon 04-10-2022 Clarity (U) Cloudy Clear [facility] Work Phone: Urine color determinationon 04-10-2022 Color (U) Yellow Yellow [facility] Work Phone: Urine glucose detectionon Glucose Ql (U) Normal mg/dl Normal [facility] Work Phone: Urine leukocyte esterase det ection by dipstickon 04-10-2022 Leukocyte esterase Test strip Ql (U) 25 /ul Negative [facility] Work Phone: Urine pHon 04-10-2022 pH (U) 8.0 [pH] 5.0 - 8.0 [facility] Work Phone: Urine sediment bacteria coun t by microscopy (number/high power field)on 04-10-2022 Bacteria LM.HPF (Urine sed) [#/Area] 1 /[HPF] None Seen [facility] Work Phone: Urine specific gravity measu rementon 04-10-2022 Specific gravity (U) [Rel density] 1.010 1.002-1.030 [facility] Work Phone: Urobilinogen Auto test strip Ql (U)on 04-10-2022 Urobilinogen Ql (U) Normal mg/dl Normal [facility] Work Phone: LABORATORYOrdered By: Ilda Al on [...] Auto (Unsp spec) [#/Vol] 3.26 10*3/uL 0.83-4.51 [facility] Work Phone: Basophil percentageon 2021 Basophils/100 WBC (Bld) 0.9 % 0-1 [facility] Work Phone: Bilirubin [Mass/Vol] 0.30 mg/dL 0.20-1.00 [facility] Work Phone: Comment on above: For patients on eltr ombopag therapy, use of Dimension Lutz TBIL is not recommended. Chloride [Moles/Vol] 103 mmol/L 98-107 [facility]: Eosinophils/100 WBC (Bld) 1.2 % 0-5 [facility] Work Phone: Glucose [Mass/Vol] 102 mg/dL 74-106 [facility] Work Phone: Comment on above: Fasting Glucose resu lt from 100 to 125 mg/dL suggests IMPAIRED HOMEOSTASIS per A.D.A. criteria. Neutrophils (Bld) [#/Vol] 3.9 10*3/uL 2.0-7.7 [facility] Work Phone: Neutrophils/100 WBC (Bld) 47.7 % 47-70 [facility] Work Phone: Potassium [Moles/Vol] 3.7 mmol/L 3.5-5.1 [facility] Work Phone: Protein [Mass/Vol] 8.9 g/dL 6.4-8.2 [facility] Work Phone: Sodium [Moles/Vol] 138 mmol/L 136-145 [facility] Work Phone: WBC (Bld) [#/Vol] 8.1 10*3/uL 4.4-11.0 [facility] Work Phone: [phone] Blood erythrocytes count (nu mber/volume)on 10-04-2021 RBC (Bld) [#/Vol] 4.52 10*6/uL 4.2-5.4 [facility] Work Phone: Blood hemoglobin measurement (mass/volume)on 10-04-2021 Hemoglobin (Bld) [Mass/Vol] 13.6 g/dL 12.0-15.0 [facility] Work Phone: Blood lymphocytes/100 leukoc yteson 10-04-2021 Lymphocytes/100 WBC (Bld) 40.3 % 19-41 [facility] Work Phone: Blood monocytes/100 leukocyt eson 10-04-2021 Monocytes/100 WBC (Bld) 7.4 % 0-10 [facility] Work Phone: Blood platelet mean volumeon 10-04-2021 Platelet mean volume (Bld) [Entitic vol] 10.5 fL 6.2-12.0 [facility] Work Phone: Determination of erythrocyte mean corpuscular volume (MCV)on 10-04-2021 MCV (RBC) [Entitic vol] 90.7 fL 81-99 [facility] Work Phone: Hematocrit Auto (Bld) [Volum e fraction]on 10-04-2021 Hematocrit (Bld) [Volume fraction] 41.0 % 37-47 [facility] Work Phone: Laboratory - Chemistry and C hemistry - challengeon 10-04-2021 ALP [Catalytic activity/Vol] 156 U/L 45-117 [facility] Work Phone: ALT [Catalytic activity/Vol] 32 U/L 13-56 [facility] Work Phone: CO2 [Moles/Vol] 29.0 mmol/L 21.0-32.0 [facility] Work Phone: Globulin (S) [Mass/Vol] 4.5 g/dL 2.2-4.2 [facility] Work Phone: Urea nitrogen/Creatinine [Mass ratio] 9.9 mg/mg 10-20 [facility] Work Phone: Laboratory - Hematology and Cell countson 10-04-2021 Erythrocyte distribution width (RBC) [Entitic vol] 42.6 fL 35.1-43.9 [facility] Work Phone: Erythrocyte distribution width (RBC) [Ratio] 12.8 % 11.6-14.6 [facility] Work Phone: Immature granulocytes/100 WBC (Bld) 2.500 % 0.0-0.9 [facility] Work Phone: Comment on above: IG% - Immature Granu locytes (promyelocytes, myelocytes and metamyelocytes) > 1% indicates that a LEFT SHIFT is Present. MCH (RBC) [Entitic mass] 30.1 pg 27.0-32.0 [facility] Work Phone: Nucleated RBC/100 WBC (Bld) [Ratio] 0 % 0-5 [facility] Work Phone: MCHC Auto (RBC) [Mass/Vol]on 10-04-2021 MCHC (RBC) [Mass/Vol] 33.2 g/dL 32-36 [facility] Work Phone: No Panel Informationon 10-04 Estimated Creatinine Clearance Calc 45.70 ml/min [facility] Work Phone: Estimated GFR (MDRD) Amer 63 mL/min >60 [facility] Work Phone: Comment on above: GFR Calc Estimated GFR (MDRD) Non-Af Amer 52 mL/min >60 [facility] Work Phone: Comment on above: Non- GFR Calc SARS-CoV-2 Antigen (Rapid) SARS-CoV-2 (COVID 19) [facility] Work Phone: Platelets bldon 10-04-2021 Platelets (Bld) [#/Vol] 258 10*3/uL 150-450 [facility] Work Phone: Serum or plasma albumin shelley urement (mass/volume)on 10-04-2021 Albumin [Mass/Vol] 4.4 g/dL 3.2-5.0 [facility] Work Phone: Serum or plasma albumin/glob ulin mass ratioon 10-04-2021 Albumin/Globulin [Mass ratio] 1.0 {ratio} 0.9-2.4 [facility] Work Phone: Serum or plasma calcium shelley urement (mass/volume)on 10-04-2021 Calcium [Mass/Vol] 9.9 mg/dL 8.5-10.1 [facility] Work Phone: Serum or plasma creatinine m easurement (mass/volume)on 10-04-2021 Creatinine [Mass/Vol] 1.21 mg/dL 0.55-1.02 [facility] Work Phone: Comment on above: The validity of the calculated GFR & GFRAA in patients over 70 years has not been determined. Clinical correlation is essential. Serum or plasma urea nitroge n measurement (mass/volume)on 10-04-2021 Urea nitrogen [Mass/Vol] 12 mg/dL 7-18 [facility] Work Phone: Thin prep Papanicolaou smear with manual screeningon 10-04-2021 Thin prep Papanicolaou smear with manual screening 19 U/L 15-37 [facility] Work Phone: Thin prep Papanicolaou smear with manual screening 6 5-15 [facility] Work Phone: LABORATORYOrdered By: Willie Pratt [...] and Lateralon IMPRESSION: No acute radiographic abnormality. [employer] Supervisor: HERMINIO Transcribe Date/Time: Jul 29 2021 9:28A Dictated by : TRISTEN PIMENTEL MD This examination was interpreted and the report reviewed and electronically signed by: TRISTEN PIMENTEL MD on Jul 29 2021 9:28AM [facility] DIVISION OF RADIOLOGY * * *Final Report* [...] the upper abdomen. DIVISION OF RADIOLOGY Provider, [facility] - 07/29/2021 * * *Final Report* * [...] abdomen. IMPRESSION IMPRESSION: No acute radiographic abnormality. [employer] Supervisor: PSCB Transcribe Date/Time: Jul 29 2021 9:28A Dictated by : TRISTEN PIMENTEL MD This examination was interpreted and the report reviewed and electronically signed by: TRISTEN PIMENTEL MD on Jul 29 2021 9:28AM EST [facility] Radiology Study [facility]narrative[facility] PA and LateralOrder ed By: Ezra Provider on 07-29-[address] [facility] EMERGENCY DEPARTMENTon 12-01 [place] [address] HEALTH INFORMATION MANAGEMENT EMERGENCY DEPARTMENT : [id number] Signed Patient: SALLY VARGAS Acct:[id number] M RUN: [id number] : 1980 Sex: F Loc: ED ADM [...] that she is going to follow-up with [facility] denies: Hx DM, previous caries, Hx of immunosupression Modifying factors: improves with: heat, cold Treatment PERFORATOR: prescription meds - Related Data Home Medications: [...] Feels Threatened In a Relationship: No - [place]/Gender ID What is your current Gender Identity? Choose all that Apply: Female - Johnson-Suicide Severity Rating Scale 1) Wish to be [...] ROM. A (more content not included)... Normal [facility] No Panel Informationon 11-19 Radiology Study observation (narrative) [facility] XR Femur - right AP and Late ralon 11-19-2020 IMPRESSION: NO ACUTE BONY ABNORMALITY NORMAL-APPEARING RIGHT HIP MILD DEGENERATIVE CHANGE OF THE RIGHT KNEE [employer] Supervisor: HERMINIO Transcribe Date/Time: Nov 19 2020 4:01P Dictated by : GARRETT WEBSTER MD This examination was interpreted and the report reviewed and electronically signed by: GARRETT WEBSTER MD on Nov 19 2020 4:02PM [facility] DIVISION OF RADIOLOGY * * *Final Report* [...] the right knee. DIVISION OF RADIOLOGY Provider, [facility] - 11/19/2020 * * *Final Report* * [...] MILD DEGENERATIVE CHANGE OF THE RIGHT KNEE [employer] Supervisor: HERMINIO Transcribe Date/Time: Nov 19 2020 4:01P Dictated by : GARRETT WEBSTER MD This examination was interpreted and the report reviewed and electronically signed by: GARRETT WEBSTER MD on Nov 19 2020 4:02PM EST [facility] XR Knee - right 4 Viewson IMPRESSION: MILD DEGENERATIVE CHANGE OF BOTH KNEES [employer] Supervisor: PSCB Transcribe Date/Time: Nov 19 2020 3:59P Dictated by : GARRETT WEBSTER MD This examination was interpreted and the report reviewed and electronically signed by: GARRETT WEBSTER MD on Nov 19 2020 4:00PM [facility] DIVISION OF RADIOLOGY * * *Final Report* [...] the left knee. DIVISION OF RADIOLOGY Provider, [facility] Justyna [facility] - 11/19/2020 * * *Final Report* * [...] IMPRESSION: MILD DEGENERATIVE CHANGE OF BOTH KNEES [employer] Supervisor: [facility] Transcribe Date/Time: Nov 19 2020 3:59P Dictated by : GARRETT WEBSTER MD This examination was interpreted and the report reviewed and electronically signed by: GARRETT WEBSTER MD on Nov 19 2020 4:00PM EST [facility] Radiology Study observation (narrative[facility] - right 4 ViewsOrder ed By: Cc Provider on 11-19-[address] [facility] XR Skull AP and Lateralon IMPRESSION: No acute osseous abnormality identified. [place] [employer] Supervisor: [facility] Transcribe Date/Time: Nov 19 2020 4:35P Dictated [...] be well aerated. DIVISION OF RADIOLOGY Provider, [facility] Justyna Gregg - 11/19/2020 * * *Final Report* * [...] IMPRESSION IMPRESSION: No acute osseous abnormality identified. [place] [employer] Supervisor: [facility] Transcribe Date/Time: Nov 19 2020 4:35P Dictated by : RADHA PEGUERO MD This examination was interpreted and the report reviewed and electronically signed by: RADHA PEGUERO MD on Nov 19 2020 4:36PM EST [facility] XR Skull AP and LateralOrder ed By: Cc Provider on 11-19-[address] [facility] CT ABD/PEL W IVCONon 020 CT ABD/PEL W IVCON Final Report DATE OF EXAM: Jun 20 2020 11:59AM [facility] 0530 - CT ABD/PEL W IVCON / [...] Visualized portions of the heart are unremarkable. Marine Consultant (topogram) images: No additional findings. IMPRESSION: 1. Postsurgical changes in the posterior right hepatic dome with residual 8.3 cm cystic cavity with trace likely postsurgical gas, but no peripheral enhancement to suggest acute inflammation. 2. Other hepatic cyst are unchanged. 3. No acute intra-abdominal or pelvic findings. [employer] Supervisor: HERMINIO Transcribe Date/Time: Jun 20 2020 12:16P Dictated by : NILAM OVIEDO MD This examination was interpreted and the report reviewed and electronically signed by: NILAM OVIEDO MD on Jun 20 2020 12:28PM EST Normal [facility] CBCOrdered By: Allie ferreira on 10-08-2019 Erythrocyte distribution width (RBC) [Ratio] 13.6 % 11.5 - 14.5 % [facility] Work Phone: Hematocrit (Bld) [Volume fraction] 33.3 % Low 35 - 47 % [facility] Work Phone: Hemoglobin (Bld) [Mass/Vol] 11.3 g/dL Low 11.7 - 16 g/dL [facility] Work Phone: Interpretation and review of laboratory results Abnormal [facility] Work Phone: MCH (RBC) [Entitic mass] 30.4 pg 26 - 34 pg [facility] Work Phone: [phone] MCHC 33.9 % 32 - 36 % [facility] Work Phone: MCV (RBC) [Entitic vol] 89.9 fL 79 - 98 fL S [facility] Work Phone: [phone] Platelet mean volume (Bld) [Entitic vol] 9.5 fL 7.4 - 10.4 fL [facility] Work Phone: [phone] Platelets (Bld) [#/Vol] 240 10*3/uL 140 - 440 10*3/uL [facility] Work Phone: [phone] RBC (Bld) [#/Vol] 3.70 10*6/uL Low 3.8 - 5.2 10*6/uL [facility] Work Phone: [phone] WBC (Bld) [#/Vol] 18.5 10*3/uL High 3.6 - 10.7 10*3/uL [facility] Work Phone: Test Performed by [facility], [address] [place] [address] [facility] Work Phone: Hemogramon 10-08-2019 Erythrocyte distribution width (RBC) [Ratio] 13.6 % Normal 11.5-14.5 [facility] Comment on above: Performed By: #### Audrey HOLBROOK3Nunu MG3, HEMOG #### [facility] [place] [facility] [place] Hematocrit (Bld) [Volume fraction] 33.3 % Low 35.0-47.0 [facility] Comment on above: Performed By: #### Audrey HOLBROOK3Nunu MG3, HEMOG #### [facility] [place] [address] Hemoglobin (Bld) [Mass/Vol] 11.3 g/dL Low 11.7-16.0 [facility] Comment on above: Performed By: #### Audrey HOLBROOK3Nunu MG3, HEMOG #### [facility] [place] [facility] [place] MCH (RBC) [Entitic mass] 30.4 pg Normal 26.0-34.0 [facility] Comment on above: Performed By: #### B MP3M, MG3, HEMOG #### [facility] [address] [place], [place] MCHC (RBC) [Mass/Vol] 33.9 % Normal 32.0-36.0 [facility] Comment on above: Performed By: #### B MP3M, MG3, HEMOG #### [place] [address] [place], [place] MCV (RBC) [Entitic vol] 89.9 fL Normal 79.0-98.0 [facility] Comment on above: Performed By: #### B MP3M, MG3, HEMOG #### [place] [address] [place], [place] Platelet mean volume (Bld) [Entitic vol] 9.5 fL Normal 7.4-10.4 [facility] Comment on above: Performed By: #### B MP3M, MG3, HEMOG #### [place] [address] [place], [place] Platelets (Bld) [#/Vol] 240 10*3/uL Normal 140-440 [facility] Comment on above: Performed By: #### B MP3M, MG3, HEMOG #### [place] [address] [place], [place] RBC (Bld) [#/Vol] 3.70 10*6/uL Low 3.80-5.20 [facility] Comment on above: Performed By: #### B MP3M, MG3, HEMOG #### [place] [address] [place], [place] WBC (Bld) [#/Vol] 18.5 10*3/uL High 3.6-10.7 [facility] Comment on above: Performed By: #### B MP3M, MG3, HEMOG #### [place] [address] [place], [place] Op Noteon 10-07-2019 Op Note PATIENT: SALLY [...] with a minimal EBL. Diskriter Job ID: [id number] Delon Palacios MD DOD:10/07/2019 10:46 A /semaj DOT:10/07/2019 12:51 P Job Number: [id number] Document Number: [id number] cc: Delon Palacios MD [address] [facility] [address] Sunny Story MD [address] [place] [address] [facility] [address] Normal [facility] Surgical Pathologyon 020 Surgical Pathology [id number] [facility] PATHOLOGY AND LABORATORY MEDICINE [address] [place], [place] [id number] FINAL SURGICAL PATHOLOGY REPORT NAME: SALLY VARGAS : 1980 39 Y F BILLING NO.: [id number] LOCATION: [facility] [id number] PROCEDURE 10/07/2019 DATE: [...] characteristics determined by the clinical laboratories of [facility]. They have not been cleared by the [...] on decalcified specimens. Professional Performing Location: [address] [address]. DEPARTMENT OF PATHOLOGY AND LABORATORY MEDICINE [place], [place] [address] Normal [facility] TS GELon 10-07-2019 TS GEL ABO Group: O Rh, Gel: POS Antibody Screen Gel: NEG Normal [facility] [place] [facility] Comment on above: Performed By: #### B MP3M, MG3, HEMOG #### [employer] [facility] [place] [address] TYPE AND SCREENOrdered By: Concepcion Palacios on 10-07-2019 ABO Grouping O [facility] Work Phone: Rh Type Positive [facility] Work Phone: Comment on above: Test Performed by [employer], [address] [place] [address] Test Performed by [facility] [place], [facility] [place] [address] [employer] Work Phone: Follicle Stim Hormoneon Follicle Stim Hormone 6.5 m[IU]/mL Normal [facility] Comment on above: Result Comment: Females: Follicular Phase ...... 2.3-12.6 Mid-cycle Peak ........ 5.2-17.5 Luteal Phase .......... 1.7-12.9 Post-menopausal ....... 12.7-132.2 Males: 0.7-10.8 Performed By: #### F SH3 #### [employer] [address] [place] [address] Follicle Stimulating Hormone Ordered By: Delon Palacios on 09-15-2019 FSH 6.5 m[IU]/mL [employer] Work Phone: Comment on above: Females: Follicular Phase ...... 2.3-12.6 Mid-cycle Peak ........ 5.2-17.5 Luteal Phase .......... 1.7-12.9 Post-menopausal ....... 12.7-132.2 Males: 0.7-10.8 Test Performed by [employer], [address], [place], [place] [address] [employer] Work Phone: US PELVIS COMPLETE NON-OB TR ANSABDOMINAL AND TRANSVAGINALOrdered By: Valerie Gee on 09-11-2019 Patient Name: SALLY BALLARD ---Ultrasound--- Exam Date/Time 09/11/2019 14:17:16 EST Exam US Pelvis TA/TV Ordering Physician MARLA GEE REBECCA E. Accession Number [id number] CPT4 Codes 59884 (US Pelvis TA/TV), 14856 (US Transvaginal) Reason For Exam right ovarian [...] Phone: [facility], [facility] Incoming Radiology Results From [facility] - 09/11/2019 2:30 PM EST Patient Name: SALLY VARGAS ---Ultrasound--- Exam Date/Time 09/11/2019 14:17:16 EST Exam US Pelvis TA/TV Ordering Physician MARLA GEE REBECCA E. Accession Number [id number] CPT4 Codes 91241 (US Pelvis TA/TV), 44525 (US Transvaginal) Reason For Exam right ovarian [...] Physician MARLA GEE REBECCA E. Accession Number [id number] CPT4 Codes 97034 (US Pelvis TA/TV), 88922 (US Transvaginal) Reason For Exam right ovarian [...] Transcribed Date and Time: 09/11/2019 2:18 Normal [facility] Basic Metabolic Panelon 12-2 Calcium [Mass/Vol] 8.7 mg/dL Normal 8.4-10.4 [facility] Comment on above: Performed By: #### H EMDF, BMP3 #### [facility] [address] [place] [address] Anion gap [Moles/Vol] 7 Normal [facility] Comment on above: Performed By: #### H EMDF, BMP3 #### [facility] [address] [place] [address] CO2 [Moles/Vol] 24 mmol/L Normal 22-30 [facility] Comment on above: Performed By: #### H EMDF, BMP3 #### [facility] [address] [place] [address] Creatinine [Mass/Vol] 0.79 mg/dL Normal 0.52-1.25 [facility] Comment on above: Performed By: #### H EMDF, BMP3 #### [facility] [address] [place] [address] GFR/1.73 sq M predicted among blacks MDRD (S/P/Bld) [Vol rate/Area] mL/min/{1.73_m2} Normal >60 [facility] Comment on above: Performed By: #### H EMDF, BMP3 #### [facility] [address] [place] [address] GFR/1.73 sq M predicted among non-blacks MDRD (S/P/Bld) [Vol rate/Area] mL/min/{1.73_m2} Normal >60 [facility] Comment on above: Result Comment: Sour ce- MDRD equation with creatinine calibration to IDMS(NKDEP) eGFR not recommended for drug dose adjustment Performed By: #### H EMDF, BMP3 #### [facility] [address] [place] [address] Glucose [Mass/Vol] 85 mg/dL Normal 70-100 [facility] Comment on above: Performed By: #### H YADIEL, BMP3 #### [facility] [address] [place] [address] Urea nitrogen [Mass/Vol] 5 mg/dL Low 7-20 [facility] Comment on above: Performed By: #### H YADIEL BMP3 #### [facility] [address] [place] [address] Chloride [Moles/Vol] 108 mmol/L High 98-107 [facility] Comment on above: Performed By: #### H YADIEL BMP3 #### [facility] [address] [place] [address] Potassium [Moles/Vol] 4.0 mmol/L Normal 3.5-5.1 [facility] Comment on above: Performed By: #### H YADIEL BMP3 #### [facility] [address] [place] [address] Sodium [Moles/Vol] 140 mmol/L Normal 135-145 [facility] Comment on above: Performed By: #### H YADIEL BMP3 #### [facility] [address] [place] [address] Basic Metabolic PanelOrdered By: Cornel Henry on 09-05-2019 Anion gap [Moles/Vol] 7 mmol/L [facility] Work Phone: Calcium [Mass/Vol] 8.7 mg/dL 8.4 - 10. 4 mg/dL [facility] Work Phone: Chloride [Moles/Vol] 108 mmol/L High 98 - 10 7 mmol/L [facility] Work Phone: CO2 [Moles/Vol] 24 mmol/L 22 - 30 mmol/L [facility] Work Phone: Creatinine [Mass/Vol] 0.79 mg/dL 0.52 - 1.25 mg/dL [facility] Work Phone: EGFR IF NonAfrican Samoan >60.0 >60 mL/min [facility] Work Phone: Comment on above: Source- MDRD equatio n with creatinine calibration to IDMS(NKDEP) eGFR not recommended for drug dose adjustment GFR/1.73 sq M.predicted among blacks MDRD (S/P/Bld) [Vol rate/Area] mL/min/{1.73_m2} >60 mL/min [facility] Work Phone: Glucose [Mass/Vol] 85 mg/dL 70 - 100 mg/dL [facility] Work Phone: Interpretation and review of laboratory results Abnormal [facility] Work Phone: Potassium [Moles/Vol] 4.0 mmol/L 3.5 - 5.1 mmol/L [facility] Work Phone: Sodium [Moles/Vol] 140 mmol/L 135 - 145 mmol/L [facility] Work Phone: Urea nitrogen [Mass/Vol] 5 mg/dL Low 7 - 20 mg/dL [facility] Work Phone: Test Performed by [facility], [address] [place] [id number] [place], [place] [address] Work Phone: CBC Auto DifferentialOrdered By: Cornel Henry on 09-05-2019 Absolute Baso # 0.0 10*3/uL 0 - 0.2 10*3/uL [facility] Work Phone: Absolute Neut # 3.9 10*3/uL 1.8 - 7 10*3/uL [facility] Work Phone: [phone] Basophils/100 WBC (Bld) 0.3 % 0 - 2 % S [facility] Work Phone: [phone] Eosinophils (Bld) [#/Vol] 0.2 10*3/uL 0 - 0.5 10*3/uL [facility] Work Phone: [phone] Eosinophils/100 WBC (Bld) 3.3 % 1 - 6 % [facility] Work Phone: Erythrocyte distribution width (RBC) [Ratio] 12.9 % 11.5 - 14.5 % [facility] Work Phone: [phone] Granulocytes/100 WBC (Bld) 55.5 % 40 - 80 % [facility] Work Phone: [phone] Hematocrit (Bld) [Volume fraction] 34.8 % Low 35 - 47 % [facility] Work Phone: [phone] Hemoglobin (Bld) [Mass/Vol] 11.5 g/dL Low 11.7 - 16 g/dL [facility] Work Phone: [phone] Interpretation and review of laboratory results Abnormal [facility] Work Phone: [phone] Lymphocytes (Bld) [#/Vol] 2.5 10*3/uL 1 - 4.3 10*3/uL [facility] Work Phone: [phone] Lymphocytes/100 WBC (Bld) 35.4 % 20 - 40 % [facility] Work Phone: [phone] MCH (RBC) [Entitic mass] 29.9 pg 26 - 34 pg [facility] Work Phone: [phone] MCHC 33.0 % 32 - 36 % [facility] Work Phone: [phone] MCV (RBC) [Entitic vol] 90.7 fL 79 - 98 fL S [employer] Work Phone: [phone] Monocytes (Bld) [#/Vol] 0.4 10*3/uL 0 - 0.8 10*3/uL [facility] Work Phone: [phone] Monocytes/100 WBC (Bld) 5.5 % 2 - 10 % [facility] Work Phone: [phone] Platelet mean volume (Bld) [Entitic vol] 9.8 fL 7.4 - 10.4 fL [facility] Work Phone: [phone] Platelets (Bld) [#/Vol] 204 10*3/uL 140 - 440 10*3/uL [facility] Work Phone: [phone] RBC (Bld) [#/Vol] 3.83 10*6/uL 3.8 - 5.2 10*6/uL [facility] Work Phone: [phone] WBC (Bld) [#/Vol] 7.0 10*3/uL 3.6 - 10.7 10*3/uL [facility] Work Phone: Test Performed by [facility], [address] [place] [address] [facility] Work Phone: CR Urography Retrograde w/ + w/o KUBon 09-05-2019 CR Urography Retrograde w/ + w/o KUB Patient Name: SALLY VARGAS Diagnostic Radiology Exam Date/Time 09/05/2019 08:12:21 EST Exam CR Urography Retrograde w/ + w/o KUB Ordering Physician MAUREEN STONE Accession Number [id number] CPT4 Codes 56751 () Reason For Exam Renal stone fluro c arm c and p Report A total of 1 minute and 11 seconds of fluoro time was used in the Operating Suite for this procedure. No other report will be generated. Final Signed Date and Time: 09/26/2019 2:02 pm Signed by: SCALP TREATMENT OPERATOR, SYSTEM Transcribed Date and Time: 09/26/2019 1:19 Transcribed By:KRISTAN Normal [facility] Hemogram w/ Autodiffon 09-05 Abs Baso Cnt 0.0 10*3/uL Normal 0.0-0.2 [facility] Comment on above: Performed By: #### H TANNER COTTO3 #### [address] [address] Abs Neutrophile Cnt 3.9 10*3/uL Normal 1.8-7.0 [facility] Comment on above: Performed By: #### H YADIEL BMP3 #### [address] [address] Basophils/100 WBC (Bld) 0.3 % Normal 0.0-2.0 [facility] Comment on above: Performed By: #### H TANNER COTTO3 #### [address] [address] Eosinophils (Bld) [#/Vol] 0.2 10*3/uL Normal 0.0-0.5 [facility] Comment on above: Performed By: #### H EMDF, BMP3 #### [facility] [address] [place] [address] Eosinophils/100 WBC (Bld) 3.3 % Normal 1.0-6.0 [facility] Comment on above: Performed By: #### H EMDF, BMP3 #### [facility] [address] [place] [address] Erythrocyte distribution width (RBC) [Ratio] 12.9 % Normal 11.5-14.5 [facility] Comment on above: Performed By: #### H EMDF, BMP3 #### [facility] [address] [place] [address] Granulocytes/100 WBC (Bld) 55.5 % Normal 40.0-80.0 [facility] Comment on above: Performed By: #### H EMDF, BMP3 #### [place] [address] [place] [address] Hematocrit (Bld) [Volume fraction] 34.8 % Low 35.0-47.0 [facility] Comment on above: Performed By: #### H EMDF, BMP3 #### [facility] [address] [place] [address] Hemoglobin (Bld) [Mass/Vol] 11.5 g/dL Low 11.7-16.0 [facility] Comment on above: Performed By: #### H EMDF, BMP3 #### [facility] [address] [place] [address] Lymphocytes (Bld) [#/Vol] 2.5 10*3/uL Normal 1.0-4.3 [facility] Comment on above: Performed By: #### H EMDF, BMP3 #### [facility] [address] [place] [address] Lymphocytes/100 WBC (Bld) 35.4 % Normal 20.0-40.0 [facility] Comment on above: Performed By: #### H EMDF, BMP3 #### [facility] [address] [place] [address] MCH (RBC) [Entitic mass] 29.9 pg Normal 26.0-34.0 [facility] Comment on above: Performed By: #### H EMDF BMP3 #### [facility] [address] [place], [place] MCHC (RBC) [Mass/Vol] 33.0 % Normal 32.0-36.0 [facility] Comment on above: Performed By: #### H EMDF, BMP3 #### [facility] [address] [place], [place] MCV (RBC) [Entitic vol] 90.7 fL Normal 79.0-98.0 [facility] Comment on above: Performed By: #### H EMDF, BMP3 #### [place] [address] [place] Monocytes (Bld) [#/Vol] 0.4 10*3/uL Normal 0.0-0.8 [facility] Comment on above: Performed By: #### H EMDF BMP3 #### [place] [address] [place] Monocytes/100 WBC (Bld) 5.5 % Normal 2.0-10.0 [facility] Comment on above: Performed By: #### H EMDF BMP3 #### [place] [address] [place] Platelet mean volume (Bld) [Entitic vol] 9.8 fL Normal 7.4-10.4 [facility] Comment on above: Performed By: #### H EMDF, BMP3 #### [place] [address] [place], [place] Platelets (Bld) [#/Vol] 204 10*3/uL Normal 140-440 [facility] Comment on above: Performed By: #### H EMDF, BMP3 #### [address] RBC (Bld) [#/Vol] 3.83 10*6/uL Normal 3.80-5.20 [facility] Comment on above: Performed By: #### H EMDF, BMP3 #### [place] [address] [place] WBC (Bld) [#/Vol] 7.0 10*3/uL Normal 3.6-10.7 [facility] Comment on above: Performed By: #### H EMDF, BMP3 #### [facility] [address] [place], [place] Basic Metabolic Panelon 12-2 Potassium [Moles/Vol] 3.5 mmol/L Normal 3.5-5.1 [facility] Comment on above: Performed By: #### B MP3M, MG3, HEMOG #### [facility] [address] [place], [place] Anion gap [Moles/Vol] 9 Normal [facility] Comment on above: Performed By: #### B MP3M, MG3, HEMOG #### [place] [address] [place], [place] Calcium [Mass/Vol] 8.8 mg/dL Normal 8.4-10.4 [facility] Comment on above: Performed By: #### B MP3M, MG3, HEMOG #### [place] [address] [place], [place] CO2 [Moles/Vol] 26 mmol/L Normal 22-30 [facility] Comment on above: Performed By: #### B MP3M, MG3, HEMOG #### [place] [address] [place], [place] Glucose [Mass/Vol] 76 mg/dL Normal 70-100 [facility] Comment on above: Performed By: #### B MP3M, MG3, HEMOG #### [facility] [address] [place], [place] Urea nitrogen [Mass/Vol] 10 mg/dL Normal 7-20 [facility] Comment on above: Performed By: #### B MP3M, MG3, HEMOG #### [facility] [address] [place], [place] Creatinine [Mass/Vol] 0.81 mg/dL Normal 0.52-1.25 [facility] Comment on above: Performed By: #### B MP3M, MG3, HEMOG #### [facility] [address] [place] [address] GFR/1.73 sq M predicted among blacks MDRD (S/P/Bld) [Vol rate/Area] mL/min/{1.73_m2} Normal >60 [facility] Comment on above: Performed By: #### B MP3M, MG3, HEMOG #### [facility] [address] [place] [address] GFR/1.73 sq M predicted among non-blacks MDRD (S/P/Bld) [Vol rate/Area] mL/min/{1.73_m2} Normal >60 [facility] Comment on above: Result Comment: Sour ce- MDRD equation with creatinine calibration to IDMS(NKDEP) eGFR not recommended for drug dose adjustment Performed By: #### B MP3M, MG3, HEMOG #### [place] [address] [place], [place] Sodium [Moles/Vol] 138 mmol/L Normal 135-145 [facility] Comment on above: Performed By: #### B MP3M, MG3, HEMOG #### [place] [address] [place], [place] Chloride [Moles/Vol] 103 mmol/L Normal 98-107 [facility] Comment on above: Performed By: #### B MP3M, MG3, HEMOG #### [facility] [address] [place], [place] Basic Metabolic Panel w/ Ref emily to MGOrdered By: Raghu Rivers on 09-04-2019 Anion gap [Moles/Vol] 9 mmol/L [facility] Work Phone: Calcium [Mass/Vol] 8.8 mg/dL 8.4 - 10. 4 mg/dL [facility] Work Phone: Chloride [Moles/Vol] 103 mmol/L 98 - 10 7 mmol/L [facility] Work Phone: CO2 [Moles/Vol] 26 mmol/L 22 - 30 mmol/L [facility] Work Phone: Creatinine [Mass/Vol] 0.81 mg/dL 0.52 - 1.25 mg/dL [employer] Work Phone: EGFR IF NonAfrican Samoan >60.0 >60 mL/min [facility] Work Phone: Comment on above: Source- MDRD equatio n with creatinine calibration to IDMS(NKDEP) eGFR not recommended for drug dose adjustment GFR/1.73 sq M.predicted among blacks MDRD (S/P/Bld) [Vol rate/Area] mL/min/{1.73_m2} >60 mL/min [facility] Work Phone: Glucose [Mass/Vol] 76 mg/dL 70 - 100 mg/dL [facility] Work Phone: Potassium [Moles/Vol] 3.5 mmol/L 3.5 - 5.1 mmol/L [facility] Work Phone: Sodium [Moles/Vol] 138 mmol/L 135 - 145 mmol/L [facility] Work Phone: Urea nitrogen [Mass/Vol] 10 mg/dL 7 - 20 mg/dL [facility] Work Phone: Test Performed by [facility], [address] [place] [address] [facility] Work Phone: CBCOrdered By: Raghu Rivers on 09-04-2019 Erythrocyte distribution width (RBC) [Ratio] 13.2 % 11.5 - 14.5 % [employer] Work Phone: Hematocrit (Bld) [Volume fraction] 36.7 % 35 - 47 % [facility] Work Phone: Hemoglobin (Bld) [Mass/Vol] 12.3 g/dL 11.7 - 16 g/dL [facility] Work Phone: MCH (RBC) [Entitic mass] 30.6 pg 26 - 34 pg [facility] Work Phone: MCHC 33.5 % 32 - 36 % [facility] Work Phone: MCV (RBC) [Entitic vol] 91.3 fL 79 - 98 fL [facility] Work Phone: Platelet mean volume (Bld) [Entitic vol] 10.4 fL 7.4 - 10.4 fL [employer] Work Phone: [phone] Platelets (Bld) [#/Vol] 211 10*3/uL 140 - 440 10*3/uL [facility] Work Phone: [phone] RBC (Bld) [#/Vol] 4.02 10*6/uL 3.8 - 5.2 10*6/uL [facility] Work Phone: [phone] WBC (Bld) [#/Vol] 7.1 10*3/uL 3.6 - 10.7 10*3/uL [facility] Work Phone: [phone] Test Performed by [facility], [address] [place] [id number] [facility] Work Phone: [phone] CULTURE URINEon 09-04-2019 CULTURE URINE CULTURE URINE --> Status: F No growth (<1,000 CFU/ml). Normal [facility] Comment on above: Order Comment: Speci men Source Comment:Urine, clean catch Performed By: #### C /UR #### [facility] [address] Hemogramon 09-04-2019 Erythrocyte distribution width (RBC) [Ratio] 13.2 % Normal 11.5-14.5 [facility] Comment on above: Performed By: #### B MP3M, MG3, HEMOG #### [facility] [place] [address] [place], [place] Hematocrit (Bld) [Volume fraction] 36.7 % Normal 35.0-47.0 [facility] Comment on above: Performed By: #### B MP3M, MG3, HEMOG #### [facility] [address] Hemoglobin (Bld) [Mass/Vol] 12.3 g/dL Normal 11.7-16.0 [facility] Comment on above: Performed By: #### B MP3M, MG3, HEMOG #### [facility] [address] [place] [address] [place], [place] MCH (RBC) [Entitic mass] 30.6 pg Normal 26.0-34.0 [facility] Comment on above: Performed By: #### B MP3M, MG3, HEMOG #### [place] [address] [address] [place], [place] MCHC (RBC) [Mass/Vol] 33.5 % Normal 32.0-36.0 [facility] Comment on above: Performed By: #### B MP3M, MG3, HEMOG #### [place] [address] [address] [place], [place] MCV (RBC) [Entitic vol] 91.3 fL Normal 79.0-98.0 [facility] Comment on above: Performed By: #### B MP3M, MG3, HEMOG #### [place] [address] [address] [place], [place] Platelet mean volume (Bld) [Entitic vol] 10.4 fL Normal 7.4-10.4 [facility] Comment on above: Performed By: #### B MP3M, MG3, HEMOG #### [place] [address] [address] [place], [place] Platelets (Bld) [#/Vol] 211 10*3/uL Normal 140-440 [facility] Comment on above: Performed By: #### B MP3M, MG3, HEMOG #### [place] [address] [address] [place], [place] RBC (Bld) [#/Vol] 4.02 10*6/uL Normal 3.80-5.20 [facility] Comment on above: Performed By: #### B MP3M, MG3, HEMOG #### [place] [address] [address] [place], [place] WBC (Bld) [#/Vol] 7.1 10*3/uL Normal 3.6-10.7 [facility] Comment on above: Performed By: #### B MP3M, MG3, HEMOG #### [place] [address] [address] [place], [place] Magnesiumon 09-04-2019 Magnesium [Mass/Vol] 1.9 mg/dL Normal 1.6-2.3 [facility] [place] [facility] Comment on above: Performed By: #### B MP3M, MG3, HEMOG #### [facility] [place] [facility] [address] [place] [phone] MagnesiumOrdered By: Raghu Rivers on 09-04-2019 Magnesium [Mass/Vol] 1.9 mg/dL 1.6 - 2 .3 mg/dL [employer] Work Phone: Test Performed by [facility] [place] [facility], [address] [place] [id number] [employer] Work Phone: Urine CultureOrdered By: Sebastian Rivers on 09-04-2019 Bacteria identified Cx Nom (U) No growth (<1,000 CFU/ml). [employer] Work Phone: Test Performed by [facility], [address] [place] [id number] Specimen Source Comment:Urine, clean catch [employer] Work Phone: CR Abdomen APon 09-03-2019 CR Abdomen AP Patient Name: SALLY BALLARD Diagnostic Radiology Exam Date/Time 09/03/2019 17:35:36 EST Exam CR Abdomen AP Ordering Physician [facility] Accession Number [id number] CPT4 Codes 74390 () Reason For Exam nephrolithiasis Report ABDOMEN, [...] Transcribed Date and Time: 09/03/2019 8:46 Normal [facility] XR ABDOMEN (KUB) (SINGLE AP VIEW)Ordered By: Italo Weaver on 09-03-2019 Patient Name: SALLY BALLARD ---Diagnostic Radiology--- Exam Date/Time 09/03/2019 17:35:36 EST Exam CR Abdomen AP Ordering Physician MD WEAVER MAX J Accession Number [id number] CPT4 Codes 15975 () Reason For Exam nephrolithiasis Report ABDOMEN, [...] ALFRED Transcribed Date and Time: 09/03/2019 8:46 [facility] Work Phone: [facility], [facility] Incoming Radiology Results From [facility] - 09/03/2019 8:48 PM EST Patient Name: SALLY VARGAS ---Diagnostic Radiology--- Exam Date/Time 09/03/2019 17:35:36 EST Exam CR Abdomen AP Ordering Physician MD WEAVER MAX J Accession Number [id number] CPT4 Codes 05047 () Reason For Exam nephrolithiasis Report ABDOMEN, [...] ALFRED Transcribed Date and Time: 09/03/2019 8:46 [facility] Work Phone: Vital Signs Date Time Vital Sign Value Performing Clinician Sandi nascimento 05-15-2025 11:06-0400 Body height 154.[address] Silverio Haley MD Work Phone: 9(892)042-079654 [place] [address] 05-15-2025 11:06-0400 Body mass index (BMI) [Ratio] 36.1 kg/m2 Dr. Silverio Haley MD Work Phone: 7(997)244-139830 [place] [address] 05-15-2025 11:06-0400 Body temperature 98.1 [degF] Dr. Silverio Haley MD Work Phone: 4(266)611-691530 [place] [address] 05-15-2025 11:06-0400 Body weight 86.[address] Silverio Haley MD Work Phone: 2(302)804-935530 [place] [address] 05-15-2025 11:06-0400 Diastolic blood pressure 69 mm[Hg] Dr. Silverio Haley MD Work Phone: 6(357)005-785054 [place] [address] 05-15-2025 11:06-0400 Heart rate 77 /min Dr. Silverio Haley MD Work Phone: 9(045)468-700554 [place] [address] 05-15-2025 11:06-0400 Respiratory rate 18 /min Dr. Silverio Haley MD Work Phone: 2(477)488-776654 [place] [address] 05-15-2025 11:06-0400 SaO2% (BldA) [Mass fraction] 98 % Dr. Silverio Haley MD Work Phone: [facility] 05-15-2025 11:06-0400 Systolic blood pressure 122 mm[Hg] Dr. Silverio Haley MD Work Phone: [facility] 02-24-2025 13:37-0400 Diastolic blood pressure 78 mm[Hg] Silverio Haley Work Phone: [facility] 02-24-2025 13:37-0400 Heart rate 79 /min Silverio Haley Work Phone: [facility] 02-24-2025 13:37-0400 Respiratory rate 18 /min Silverio Haley Work Phone: [facility] 02-24-2025 13:37-0400 SaO2% (BldA) [Mass fraction] 100 % Silverio Haley Work Phone: [facility] 02-24-2025 13:37-0400 Systolic blood pressure 115 mm[Hg] Silverio Haley Work Phone: [facility] 02-24-2025 11:12-0400 Body temperature 97.5 [degF] Silverio Haley Work Phone: [facility] 02-24-2025 11:12-0400 Body height 154.9 cm Silverio Haley Work Phone: [facility] 02-24-2025 11:12-0400 Body mass index (BMI) [Ratio] 37.03 kg/m2 Silverio Haley Work Phone: [facility] 02-24-2025 11:12-0400 Body weight 88.91 kg Silverio Haley Work Phone: [facility] 02-14-2025 11:02-0400 Body mass index (BMI) [Ratio] 37.27 kg/m2 Merced Evangelina YARD ENGINEER.[employer] MERCH[employer]ISING SPECIALIST Work Phone: [facility] 02-14-2025 11:02-0400 Body weight 90.7 kg Merced Evangelina YARD ENGINEER.[employer]AL[employer] MERCHANDISING SPECIALIST Work Phone: [facility] 02-14-2025 11:02-0400 Diastolic blood pressure 76 mm[Hg] Merced Evangelina YARD ENGINEER.SAL[employer] MERCHANDISING SPECIALIST Work Phone: [facility] 02-14-2025 11:02-0400 Heart rate 82 /min Merced Evangelina YARD ENGINEER.SALES MERCHANDISING SPECIALIST Work Phone: [facility] 02-14-2025 11:02-0400 SaO2% (BldA) [Mass fraction] 98 % Merced Evangelina YARD ENGINEER.SALES MERCHANDISING SPECIALIST Work Phone: [facility] 02-14-2025 11:02-0400 Systolic blood pressure 128 mm[Hg] Merced Hutchinson APRN.SALES MERCHANDISING SPECIALIST Work Phone: [facility] 12-29-2024 14:17-0400 Body height 162.6 cm Sunny Story MD Work Phone: [facility] 12-29-2024 14:17-0400 Body mass index (BMI) [Ratio] 33.47 kg/m2 Sunny Story MD Work Phone: [facility] 12-29-2024 14:17-0400 Body weight 88.45 kg Sunny Story MD Work Phone: [facility] 12-29-2024 14:17-0400 Diastolic blood pressure 74 mm[Hg] Sunny Story MD Work Phone: [facility] 12-29-2024 14:17-0400 Systolic blood pressure 116 mm[Hg] Sunny Story MD Work Phone: [facility] 12-27-2024 16:04-0400 SaO2% (BldA) [Mass fraction] 99 % Mejgon Shira DO Work Phone: [facility] 12-27-2024 14:08-0400 Body temperature 98.6 [degF] Mejgon Shira DO Work Phone: [facility] 12-27-2024 14:08-0400 Diastolic blood pressure 99 mm[Hg] Mejgon Shira DO Work Phone: [facility] 12-27-2024 14:08-0400 Heart rate 79 /min Mejgon Shira DO Work Phone: [facility] 12-27-2024 14:08-0400 Respiratory rate 18 /min Mejgon Shira DO Work Phone: [facility] 12-27-2024 14:08-0400 Systolic blood pressure 148 mm[Hg] Mejgon Shira DO Work Phone: [facility] 12-21-2024 12:12-0400 Body height 162.6 cm Sunny Story MD Work Phone: [facility] 12-21-2024 12:12-0400 Body mass index (BMI) [Ratio] 33.47 kg/m2 Sunny Story MD Work Phone: [facility] 12-21-2024 12:12-0400 Body weight 88.45 kg Sunny Story MD Work Phone: [facility] 12-21-2024 12:12-0400 Diastolic blood pressure 84 mm[Hg] Sunny Story MD Work Phone: [facility] 12-21-2024 12:12-0400 Systolic blood pressure 128 mm[Hg] Sunny Story MD Work Phone: [facility] 12-17-2024 14:17-0400 Diastolic blood pressure 81 mm[Hg] Emiliano White MD Work Phone: [facility] 12-17-2024 14:17-0400 Heart rate 74 /min Emiliano White MD Work Phone: [facility] 12-17-2024 14:17-0400 Respiratory rate 16 /min Emiliano White MD Work Phone: [facility] 12-17-2024 14:17-0400 SaO2% (BldA) [Mass fraction] 99 % Emiliano White MD Work Phone: [facility] 12-17-2024 14:17-0400 Systolic blood pressure 131 mm[Hg] Emiliano White MD Work Phone: [facility] 12-17-2024 11:59-0400 Body height 154.9 cm Emiliano White MD Work Phone: [facility] 12-17-2024 11:59-0400 Body mass index (BMI) [Ratio] 36.84 kg/m2 Emiliano White MD Work Phone: [facility] 12-17-2024 11:59-0400 Body temperature 98.2 [degF] Emiliano White MD Work Phone: [facility] 12-17-2024 11:59-0400 Body weight 88.45 kg Emiliano White MD Work Phone: [facility] 12-15-2024 03:33-0400 Body temperature 97.2 [degF] Fan Nesheim DO Work Phone: [facility] 12-15-2024 03:30-0400 Diastolic blood pressure 75 mm[Hg] Fan Nesheim DO Work Phone: [facility] 12-15-2024 03:30-0400 Heart rate 88 /min Fan Nesheim DO Work Phone: [facility] 12-15-2024 03:30-0400 Respiratory rate 16 /min Fan Nesheim DO Work Phone: [facility] 12-15-2024 03:30-0400 SaO2% (BldA) [Mass fraction] 98 % Fan Nesheim DO Work Phone: [facility] 12-15-2024 03:30-0400 Systolic blood pressure 99 mm[Hg] Fan Nesheim DO Work Phone: [facility] 12-12-2024 17:29-0400 Diastolic blood pressure 60 mm[Hg] Marie Aguiar MD Work Phone: [facility] 12-12-2024 17:29-0400 Heart rate 80 /min Marie Aguiar MD Work Phone: [facility] 12-12-2024 17:29-0400 Respiratory rate 18 /min Marie Aguiar MD Work Phone: [facility] 12-12-2024 17:29-0400 SaO2% (BldA) [Mass fraction] 99 % Marie Aguiar MD Work Phone: [facility] 12-12-2024 17:29-0400 Systolic blood pressure 104 mm[Hg] Marie Aguiar MD Work Phone: [facility] 12-12-2024 14:39-0400 Body temperature 98.01 [degF] Marie Aguiar MD Work Phone: [facility] 12-12-2024 14:36-0400 Body height 154.9 cm Marie Aguiar MD Work Phone: [facility] 12-12-2024 14:36-0400 Body mass index (BMI) [Ratio] 38.36 kg/m2 Marie Aguiar MD Work Phone: [facility] 12-12-2024 14:36-0400 Body weight 92.08 kg Marie Aguiar MD Work Phone: [facility] 12-07-2024 10:52-0400 Body mass index (BMI) [Ratio] 39.24 kg/m2 Silverio Haley MD Work Phone: [facility] 12-07-2024 10:52-0400 Body weight 95.5 kg Silverio Haley MD Work Phone: [facility] 12-07-2024 10:52-0400 Diastolic blood pressure 86 mm[Hg] Silverio Haley MD Work Phone: [facility] 12-07-2024 10:52-0400 Heart rate 80 /min Silverio Haley MD Work Phone: [facility] 12-07-2024 10:52-0400 Respiratory rate 16 /min Silverio Haley MD Work Phone: [facility] 12-07-2024 10:52-0400 Systolic blood pressure 146 mm[Hg] Silverio Haley MD Work Phone: [facility] 11-30-2024 11:11-0400 Body mass index (BMI) [Ratio] 39.45 kg/m2 Merced Hutchinson APRN.CNP Work Phone: [facility] 11-30-2024 11:11-0400 Body weight 96 kg Merced Evangelina YARD ENGINEER.SAL[employer] MERCHANDISING SPECIALIST Work Phone: [facility] 11-30-2024 11:11-0400 Diastolic blood pressure 80 mm[Hg] Merced Evangelina YARD ENGINEER.SALES MERCHANDISING SPECIALIST Work Phone: [facility] 11-30-2024 11:11-0400 Heart rate 81 /min Merced Evangelina YARD ENGINEER.SALES MERCHANDISING SPECIALIST Work Phone: [facility] 11-30-2024 11:11-0400 SaO2% (BldA) [Mass fraction] 99 % Merced Evangelina YARD ENGINEER.SALES MERCHANDISING SPECIALIST Work Phone: [facility] 11-30-2024 11:11-0400 Systolic blood pressure 128 mm[Hg] Merced Evangelina YARD ENGINEER.SALES MERCHANDISING SPECIALIST Work Phone: 4(962)178-831491 [place] [address] 11-22-2024 10:44-0400 Body height 154.[address] Silverio Haley MD Work Phone: 9(117)760-147154 [place] [address] 11-22-2024 10:44-0400 Body mass index (BMI) [Ratio] 38.9 kg/m2 Dr. Silverio Haley MD Work Phone: 2(564)113-381354 [place] [address] 11-22-2024 10:44-0400 Body temperature 96.5 [degF] Dr. Silverio Haley MD Work Phone: 4(685)980-972754 [place] [address] 11-22-2024 10:44-0400 Body weight 93.[address] Silverio Haley MD Work Phone: 5(178)283-251454 [place] [address] 11-22-2024 10:44-0400 Diastolic blood pressure 88 mm[Hg] Dr. Silverio Haley MD Work Phone: 4(259)250-419154 [place] [address] 11-22-2024 10:44-0400 Heart rate 92 /min Dr. Silverio Haley MD Work Phone: 2(885)050-502854 [place] [address] 11-22-2024 10:44-0400 Respiratory rate 20 /min Dr. Silverio Haley MD Work Phone: 3(157)894-171830 [place] [address] 11-22-2024 10:44-0400 SaO2% (BldA) [Mass fraction] 99 % Dr. Silverio Haley MD Work Phone: 2(578)594-784330 [place] [address] 11-22-2024 10:44-0400 Systolic blood pressure 140 mm[Hg] Dr. Silverio Haley MD Work Phone: 2(981)154-880830 [place] [address] 11-17-2024 19:24-0500 Diastolic blood pressure 80 mm[Hg] Dr. Silverio Haley MD Work Phone: 7(193)093-408930 [place] [address] 11-17-2024 19:24-0500 Heart rate 78 /min Dr. Silverio Haley MD Work Phone: 3(621)012-852630 [place] [address] 11-17-2024 19:24-0500 Respiratory rate 14 /min Dr. Silverio Haley MD Work Phone: 1(349)411-662530 [place] [address] 11-17-2024 19:24-0500 SaO2% (BldA) [Mass fraction] 98 % Dr. Silverio Haley MD Work Phone: 1(848)153-812130 [place] [address] 11-17-2024 19:24-0500 Systolic blood pressure 140 mm[Hg] Dr. Silverio Haley MD Work Phone: 6(092)360-954730 [place] [address] 11-17-2024 17:25-0500 Body height 154.[address] Silverio Haley MD Work Phone: 1(000)366-502730 [place] [address] 11-17-2024 17:25-0500 Body mass index (BMI) [Ratio] 39.4 kg/m2 Dr. Silverio Haley MD Work Phone: 9(997)255-182730 [place] [address] 11-17-2024 17:25-0500 Body temperature 97.8 [degF] Dr. Silverio Haley MD Work Phone: 1(087)121-402430 [place] [address] 11-17-2024 17:25-0500 Body weight 94.[address] Silverio Haley MD Work Phone: 7(582)626-515830 [place] [address] 11-17-2024 14:30-0500 Body mass index (BMI) [Ratio] 38.79 kg/m2 Robbin Hernandez MD Work Phone: [facility] 11-17-2024 14:30-0500 Body weight 94.4 kg Robbin Hernandez MD Work Phone: [facility] 11-17-2024 14:30-0500 Diastolic blood pressure 76 mm[Hg] Robbin Hernandez MD Work Phone: [facility] 11-17-2024 14:30-0500 Heart rate 100 /min Robbin Hernandez MD Work Phone: [facility] 11-17-2024 14:30-0500 Systolic blood pressure 136 mm[Hg] Robbin Hernandez MD Work Phone: [facility] 11-04-2024 18:20-0500 Body mass index (BMI) [Ratio] 38.63 kg/m2 Marcelino Bess YARD ENGINEER.SALES MERCHANDISING SPECIALIST Work Phone: [facility] 11-04-2024 18:20-0500 Body temperature 98.8 [degF] Marcelino Bess YARD ENGINEER.SALES MERCHANDISING SPECIALIST Work Phone: [facility] 11-04-2024 18:20-0500 Body weight 94 kg Marcelino Bess YARD ENGINEER.SALES MERCHANDISING SPECIALIST Work Phone: [facility] 11-04-2024 18:20-0500 Diastolic blood pressure 74 mm[Hg] Marcleino Bess YARD ENGINEER.SALES MERCHANDISING SPECIALIST Work Phone: [facility] 11-04-2024 18:20-0500 Heart rate 89 /min Marcelino Bess YARD ENGINEER.SALES MERCHANDISING SPECIALIST Work Phone: [facility] 11-04-2024 18:20-0500 Respiratory rate 20 /min Marcelino Bess YARD ENGINEER.SALES MERCHANDISING SPECIALIST Work Phone: [facility] 11-04-2024 18:20-0500 SaO2% (BldA) [Mass fraction] 99 % Marcelino Bess YARD ENGINEER.SALES MERCHANDISING SPECIALIST Work Phone: [facility] 11-04-2024 18:20-0500 Systolic blood pressure 111 mm[Hg] Marcelino Maria Alejandra DWYER Work Phone: [facility] 10-27-2024 13:03-0500 Body mass index (BMI) [Ratio] 38.96 kg/m2 Robbin Hernandez MD Work Phone: [facility] 10-27-2024 13:03-0500 Body temperature 98.91 [degF] Robbin Hernandez MD Work Phone: [facility] 10-27-2024 13:03-0500 Body weight 94.8 kg Robbin Hernandez MD Work Phone: [facility] 10-27-2024 13:03-0500 Diastolic blood pressure 78 mm[Hg] Robbin Hernandez MD Work Phone: [facility] 10-27-2024 13:03-0500 Heart rate 80 /min Robbin Hernandez MD Work Phone: [facility] 10-27-2024 13:03-0500 Respiratory rate 18 /min Robbin Hernandez MD Work Phone: [facility] 10-27-2024 13:03-0500 Systolic blood pressure 120 mm[Hg] Robbin Hernandez MD Work Phone: [facility] 10-18-2024 11:41-0500 Body mass index (BMI) [Ratio] 39.94 kg/m2 Silverio Haley MD Work Phone: [facility] 10-18-2024 11:41-0500 Body temperature 98.8 [degF] Silverio Haley MD Work Phone: [facility] 10-18-2024 11:41-0500 Body weight 97.2 kg Silverio Haley MD Work Phone: [facility] 10-18-2024 11:41-0500 Diastolic blood pressure 78 mm[Hg] Silverio Haley MD Work Phone: [facility] 10-18-2024 11:41-0500 Heart rate 79 /min Silverio Haley MD Work Phone: [facility] 10-18-2024 11:41-0500 SaO2% (BldA) [Mass fraction] 98 % Silverio Haley MD Work Phone: [facility] 10-18-2024 11:41-0500 Systolic blood pressure 118 mm[Hg] Silverio Haley MD Work Phone: [facility] 10-17-2024 11:00-0500 Body mass index (BMI) [Ratio] 38.38 kg/m2 Mini Duenas APRN.SALES MERCHANDISING SPECIALIST Work Phone: [facility] 10-17-2024 11:00-0500 Body temperature 97.59 [degF] Mini Duenas APRN.SALES MERCHANDISING SPECIALIST Work Phone: [facility] 10-17-2024 11:00-0500 Body weight 93.4 kg Mini Duenas APRN.SALES MERCHANDISING SPECIALIST Work Phone: [facility] 10-17-2024 11:00-0500 Diastolic blood pressure 78 mm[Hg] Mini Duenas APRN.SALES MERCHANDISING SPECIALIST Work Phone: [facility] 10-17-2024 11:00-0500 Heart rate 90 /min Mnii Duenas APRN.SALES MERCHANDISING SPECIALIST Work Phone: [facility] 10-17-2024 11:00-0500 Respiratory rate 16 /min Mini Duenas APRN.SALES MERCHANDISING SPECIALIST Work Phone: [facility] 10-17-2024 11:00-0500 SaO2% (BldA) [Mass fraction] 99 % Mini Duenas APRN.SALES MERCHANDISING SPECIALIST Work Phone: [facility] 10-17-2024 11:00-0500 Systolic blood pressure 124 mm[Hg] Mini Duenas APRN.SALES MERCHANDISING SPECIALIST Work Phone: [facility] 10-13-2024 10:59-0500 Body mass index (BMI) [Ratio] 38.09 kg/m2 Maureen Barragan MD Work Phone: [facility] 10-13-2024 10:59-0500 Body temperature 97.7 [degF] Maureen Barragan MD Work Phone: [facility] 10-13-2024 10:59-0500 Body weight 92.7 kg Maureen Barragan MD Work Phone: [facility] 10-13-2024 10:59-0500 Diastolic blood pressure 84 mm[Hg] Maureen Barragan MD Work Phone: [facility] 10-13-2024 10:59-0500 Heart rate 73 /min Maureen Barragan MD Work Phone: 2(950)870-036491 [place] [address] 10-13-2024 10:59-0500 Respiratory rate 19 /min Maureen Barragan MD Work Phone: [facility] 10-13-2024 10:59-0500 SaO2% (BldA) [Mass fraction] 98 % Maureen Barragan MD Work Phone: [facility] 10-13-2024 10:59-0500 Systolic blood pressure 120 mm[Hg] Maureen Barragan MD Work Phone: 6(645)196-681591 [place] [address] 10-04-2024 20:00-0500 Body temperature 98.8 [degF] Dr. Silverio Haley MD Work Phone: 7(877)289-032854 [place] [address] 10-04-2024 20:00-0500 Diastolic blood pressure 63 mm[Hg] Dr. Silverio Haley MD Work Phone: 5(436)307-037354 [place] [address] 10-04-2024 20:00-0500 Heart rate 61 /min Dr. Silverio Haley MD Work Phone: 5(564)969-737754 [place] [address] 10-04-2024 20:00-0500 Respiratory rate 18 /min Dr. Silverio Haley MD Work Phone: 3(794)859-681554 [place] [address] 10-04-2024 20:00-0500 SaO2% (BldA) [Mass fraction] 99 % Dr. Silverio Haley MD Work Phone: 7(236)625-562654 [place] [address] 10-04-2024 20:00-0500 Systolic blood pressure 104 mm[Hg] Dr. Silverio Haley MD Work Phone: [facility] 10-04-2024 16:52-0500 Body mass index (BMI) [Ratio] 38.8 kg/m2 Dr. Silverio Haley MD Work Phone: [facility] 10-04-2024 16:52-0500 Body weight 93.[address] Silverio Haley MD Work Phone: [facility] 10-03-2024 09:47-0500 Body mass index (BMI) [Ratio] 37.93 kg/m2 Silverio Haley MD Work Phone: [facility] 10-03-2024 09:47-0500 Body temperature 98.6 [degF] Silverio Haley MD Work Phone: [facility] 10-03-2024 09:47-0500 Body weight 92.3 kg Silverio Haley MD Work Phone: [facility] 10-03-2024 09:47-0500 Diastolic blood pressure 74 mm[Hg] Silverio Haley MD Work Phone: [facility] 10-03-2024 09:47-0500 Heart rate 64 /min Silverio Haley MD [facility]: [facility] [facility] 10-03-2024 09:47-0500 Respiratory rate 16 /min Silverio Haley MD Work Phone: [facility] 10-03-2024 09:47-0500 SaO2% (BldA) [Mass fraction] 100 % Silverio Haley MD Work Phone: [facility] 10-03-2024 09:47-0500 Systolic blood pressure 118 mm[Hg] Silverio Haley MD Work Phone: [facility] 09-24-2024 13:09-0500 Diastolic Blood Pressure Non-Invasive 72 mm[Hg] KAREY GILMORE MD [facility] 09-24-2024 13:09-0500 Heart rate 61 /min KAREY GILMORE MD [facility] 09-24-2024 13:09-0500 Mean blood pressure 85 mm[Hg] KAREY GILMORE MD [facility] 09-24-2024 13:09-0500 Respiratory rate 18 /min KAREY GILMORE MD [facility] 09-24-2024 13:09-0500 Systolic Blood Pressure Non-Invasive 113 mm[Hg] KAREY GILMORE MD [facility] 09-24-2024 10:33-0500 Blood Pressure Cuff Size KAREY GILMORE MD [facility] 09-24-2024 10:33-0500 Blood Pressure Location KAREY GILMORE MD [facility] 09-24-2024 10:33-0500 Blood Pressure Method KAREY GILMORE MD [facility] 09-24-2024 10:33-0500 Body temperature 98.24 [degF] KAREY GILMORE MD [facility] 09-24-2024 10:33-0500 Diastolic Blood Pressure Non-Invasive 87 mm[Hg] KAREY GILMORE MD [facility] 09-24-2024 10:33-0500 Heart rate 78 /min KAREY GILMORE MD [facility] 09-24-2024 10:33-0500 Respiratory rate 18 /min KAREY GILMORE MD [facility] 09-24-2024 10:33-0500 Systolic Blood Pressure Non-Invasive 126 mm[Hg] KAREY GILMORE MD [facility] 09-22-2024 19:11-0500 Blood Pressure Location MACKENZIE MORALEST DO [facility] 09-22-2024 19:11-0500 Body temperature 98.24 [degF] MACKENZIE MORALEST DO [facility] 09-22-2024 19:11-0500 Diastolic Blood Pressure Non-Invasive 67 mm[Hg] MACKENZIE MORALEST DO [facility] 09-22-2024 19:11-0500 Heart rate 84 /min MACKENZIE MORALEST DO [facility] 09-22-2024 19:11-0500 Respiratory rate 16 /min MACKENZIE MORALEST DO [facility] 09-22-2024 19:11-0500 Systolic Blood Pressure Non-Invasive 114 mm[Hg] MACKENZIE MORALEST DO [facility] 09-21-2024 10:36-0500 Body mass index (BMI) [Ratio] 37.31 kg/m2 Jaja Fela YARD ENGINEER.SALES MERCHANDISING SPECIALIST Work Phone: [facility] 09-21-2024 10:36-0500 Body temperature 97.2 [degF] Jaja ScanlonFela YARD ENGINEER.SALES MERCHANDISING SPECIALIST Work Phone: [facility] 09-21-2024 10:36-0500 Body weight 90.8 kg Jaja Fela YARD ENGINEER.SALES MERCHANDISING SPECIALIST Work Phone: [facility] 09-21-2024 10:36-0500 Diastolic blood pressure 78 mm[Hg] Jaja Fela YARD ENGINEER.SALES MERCHANDISING SPECIALIST Work Phone: [facility] 09-21-2024 10:36-0500 Heart rate 85 /min Jaja ScanlonFela YARD ENGINEER.SALES MERCHANDISING SPECIALIST Work Phone: [facility] 09-21-2024 10:36-0500 Respiratory rate 16 /min [facility].SALES MERCHANDISING SPECIALIST Work Phone: [facility] 09-21-2024 10:36-0500 SaO2% (BldA) [Mass fraction] 99 % [facility] YARD ENGINEER.SALES MERCHANDISING SPECIALIST Work Phone: [facility] 09-21-2024 10:36-0500 Systolic blood pressure 126 mm[Hg] [facility] ENGINEER.SALES MERCHANDISING SPECIALIST Work Phone: [facility] 08-21-2024 10:00-0500 Body mass index (BMI) [Ratio] 37.8 kg/m2 Dr. Silverio Haley MD Work Phone: 6(718)059-741054 [place] [address] 08-21-2024 10:00-0500 Body temperature 96.9 [degF] Dr. Silverio Haley MD Work Phone: 8(046)347-189630 [place] [address] 08-21-2024 10:00-0500 Body weight 90.[address] Silverio Haley MD Work Phone: 5(120)676-599554 [place] [address] 08-21-2024 10:00-0500 Diastolic blood pressure 77 mm[Hg] Dr. Silverio Haley MD Work Phone: 1(031)206-461730 [place] [address] 08-21-2024 10:00-0500 Heart rate 94 /min Dr. Silverio Haley MD Work Phone: 1(884)874-665054 [place] [address] 08-21-2024 10:00-0500 Respiratory rate 16 /min Dr. Silverio Haley MD Work Phone: 3(041)017-774954 [place] [address] 08-21-2024 10:00-0500 SaO2% (BldA) [Mass fraction] 99 % Dr. Silverio Haley MD Work Phone: 3(278)994-408654 [place] [address] 08-21-2024 10:00-0500 Systolic blood pressure 137 mm[Hg] Dr. Silverio Haley MD Work Phone: 8(787)233-890454 [place] [address] 07-28-2024 18:56-0500 Body mass index (BMI) [Ratio] 36.98 kg/m2 Holly Fraga YARD ENGINEER.SALES MERCHANDISING SPECIALIST Work Phone: [facility] 07-28-2024 18:56-0500 Body temperature 98.49 [degF] Holly Fraga YARD ENGINEER.SALES MERCHANDISING SPECIALIST Work Phone: [facility] 07-28-2024 18:56-0500 Body weight 90 kg Holly Fraga YARD ENGINEER.SALES MERCHANDISING SPECIALIST Work Phone: [facility] 07-28-2024 18:56-0500 Diastolic blood pressure 78 mm[Hg] Holly Fraga YARD ENGINEER.SALES MERCHANDISING SPECIALIST Work Phone: [facility] 07-28-2024 18:56-0500 Heart rate 96 /min Holly Fraga YARD ENGINEER.SALES MERCHANDISING SPECIALIST Work Phone: [facility] 07-28-2024 18:56-0500 Respiratory rate 20 /min Holly Fraga YARD ENGINEER.SALES MERCHANDISING SPECIALIST Work Phone: [facility] 07-28-2024 18:56-0500 SaO2% (BldA) [Mass fraction] 97 % Holly Fraga YARD ENGINEER.SALES MERCHANDISING SPECIALIST Work Phone: [facility] 07-28-2024 18:56-0500 Systolic blood pressure 116 mm[Hg] Holly Fraga YARD ENGINEER.SALES MERCHANDISING SPECIALIST Work Phone: [facility] 06-10-2024 11:27-0400 Body mass index (BMI) [Ratio] 37.43 kg/m2 Silverio Haley MD Work Phone: [facility] 06-10-2024 11:27-0400 Body temperature 96.1 [degF] Silverio Haley MD Work Phone: [facility] 06-10-2024 11:27-0400 Body weight 91.1 kg Silverio Haley MD Work Phone: [facility] 06-10-2024 11:27-0400 Diastolic blood pressure 72 mm[Hg] Silverio Haley MD Work Phone: [facility] 06-10-2024 11:27-0400 Heart rate 63 /min Silverio Haley MD Work Phone: [facility] 06-10-2024 11:27-0400 Respiratory rate 16 /min Silverio Haley MD Work Phone: [facility] 06-10-2024 11:27-0400 SaO2% (BldA) [Mass fraction] 97 % Silverio Haley MD Work Phone: [facility] 06-10-2024 11:27-0400 Systolic blood pressure 114 mm[Hg] Silverio Haley MD Work Phone: [facility] 03-31-2024 17:26-0400 Body mass index (BMI) [Ratio] 37.68 kg/m2 Marcelino Pendlebury YARD ENGINEER.SALES MERCHANDISING SPECIALIST Work Phone: [facility] 03-31-2024 17:26-0400 Body temperature 98.29 [degF] Marcelino Pendlebury YARD ENGINEER.SALES MERCHANDISING SPECIALIST Work Phone: [facility] 03-31-2024 17:26-0400 Body weight 91.7 kg Marcelino Pendlebury YARD ENGINEER.SALES MERCHANDISING SPECIALIST Work Phone: [facility] 03-31-2024 17:26-0400 Diastolic blood pressure 80 mm[Hg] Marcelino Pendlebury YARD ENGINEER.SALES MERCHANDISING SPECIALIST Work Phone: [facility] 03-31-2024 17:26-0400 Heart rate 66 /min Marcelino Pendlebury YARD ENGINEER.SALES MERCHANDISING SPECIALIST Work Phone: [facility] 03-31-2024 17:26-0400 Respiratory rate 18 /min Marcelino Pendlebury YARD ENGINEER.SALES MERCHANDISING SPECIALIST Work Phone: [facility] 03-31-2024 17:26-0400 SaO2% (BldA) [Mass fraction] 97 % Marcelino Pendlebury YARD ENGINEER.SALES MERCHANDISING SPECIALIST Work Phone: [facility] 03-31-2024 17:26-0400 Systolic blood pressure 114 mm[Hg] Marcelino Pendlebury YARD ENGINEER.SALES MERCHANDISING SPECIALIST Work Phone: [facility] 06-28-2024 17:00-0400 Body mass index (BMI) [Ratio] 37.8 kg/m2 Krislyn Aberegg PA Work Phone: [facility] 03-11-2024 17:00-0400 Body temperature 98.01 [degF] Krislyn Aberegg PA Work Phone: [facility] 03-11-2024 17:00-0400 Body weight 92 kg Krislyn Aberegg PA Work Phone: [facility] 03-11-2024 17:00-0400 Diastolic blood pressure 68 mm[Hg] Krislyn Aberegg PA Work Phone: [facility] 03-11-2024 17:00-0400 Heart rate 70 /min Krislyn Aberegg PA Work Phone: [facility] 03-11-2024 17:00-0400 Respiratory rate 18 /min Krislyn Aberegg PA Work Phone: [facility] 03-11-2024 17:00-0400 SaO2% (BldA) [Mass fraction] 98 % Krislyn Aberegg PA Work Phone: [facility] 03-11-2024 17:00-0400 Systolic blood pressure 103 mm[Hg] Krislyn Aberegg PA Work Phone: [facility] 02-04-2024 16:51-0400 Body temperature 97.52 [degF] ETHAN HENDERSON MD [facility] 02-04-2024 16:51-0400 Body weight 88 kg ETHAN HENDERSON MD [facility] 02-04-2024 16:51-0400 Diastolic Blood Pressure Non-Invasive 72 mm[Hg] ETHAN HENDERSON MD [facility] 02-04-2024 16:51-0400 Heart rate 97 /min ETHAN HENDERSON MD [facility] 02-04-2024 16:51-0400 Respiratory rate 20 /min ETHAN HENDERSON MD [facility] 02-04-2024 16:51-0400 Systolic Blood Pressure Non-Invasive 114 mm[Hg] ETHAN HENDERSON MD [facility] 01-30-2024 23:53-0400 Diastolic Blood Pressure Non-Invasive 94 mm[Hg] ETHAN HENDERSON MD [facility] 01-30-2024 23:53-0400 Heart rate 86 /min ETHAN HENDERSON MD [facility] 01-30-2024 23:53-0400 Respiratory rate 22 /min ETHAN HENDERSON MD [facility] 01-30-2024 23:53-0400 Systolic Blood Pressure Non-Invasive 134 mm[Hg] ETHAN HENDERSON MD [facility] 01-30-2024 22:56-0400 Blood Pressure Location ETHAN HENDERSON MD [facility] 01-30-2024 22:56-0400 Blood Pressure Method ETHAN HENDERSON MD [facility] 01-30-2024 22:56-0400 Body temperature 97.34 [degF] ETHAN HENDERSON MD [facility] 01-30-2024 22:56-0400 Diastolic Blood Pressure Non-Invasive 83 mm[Hg] ETHAN HENDERSON MD [facility] 01-30-2024 22:56-0400 Heart rate 93 /min ETHAN HENDERSON MD [facility] 01-30-2024 22:56-0400 Respiratory rate 22 /min ETHAN HENDERSON MD [facility] 01-30-2024 22:56-0400 Systolic Blood Pressure Non-Invasive 127 mm[Hg] ETHAN HENDERSON MD [facility] 01-16-2024 17:49-0400 Heart rate 66 /min Dr. Silverio Haley Work Phone: [facility] 01-16-2024 17:49-0400 Respiratory rate 16 /min Dr. Silverio Haley Work Phone: [facility] 01-16-2024 17:49-0400 SaO2% (BldA) [Mass fraction] 98 % Dr. Silverio Haley Work Phone: [facility] 01-16-2024 14:57-0400 Body height 154.[address] Silverio Haley Work Phone: [facility] 01-16-2024 14:57-0400 Body temperature 97.7 [degF] Dr. Silverio Haley Work Phone: [facility] 01-16-2024 14:57-0400 Diastolic blood pressure 83 mm[Hg] Dr. Silverio Haley Work Phone: [facility] 01-16-2024 14:57-0400 Systolic blood pressure 123 mm[Hg] Dr. Silverio Haley Work Phone: [facility] 01-01-2024 10:19-0400 Body mass index (BMI) [Ratio] 38.77 kg/m2 Silverio Haley MD Work Phone: [facility] 01-01-2024 10:19-0400 Body temperature 97 [degF] Silverio Haley MD Work Phone: [facility] 01-01-2024 10:190400 Body weight 94.35 kg Silverio Haley MD Work Phone: [facility] 01-01-2024 10:19-0400 Diastolic blood pressure 82 mm[Hg] Silverio Haley MD Work Phone: [facility] 01-01-2024 10:19-0400 Heart rate 64 /min Silverio Haley MD Work Phone: [facility] 01-01-2024 10:19-0400 Respiratory rate 18 /min Silverio Haley MD Work Phone: [facility] 01-01-2024 10:19-0400 SaO2% (BldA) [Mass fraction] 98 % Silverio Haley MD Work Phone: [facility] 01-01-2024 10:19-0400 Systolic blood pressure 118 mm[Hg] Silverio Haley MD Work Phone: [facility] 12-26-2023 17:26-0400 Body temperature 98 [degF] Dr. Silverio Haley Work Phone: [facility] 12-26-2023 17:26-0400 Diastolic blood pressure 63 mm[Hg] Dr. Silverio Haley Work Phone: [facility] 12-26-2023 17:26-0400 Heart rate 68 /min Dr. Silverio Haley Work Phone: [facility] 12-26-2023 17:26-0400 Respiratory rate 20 /min Dr. Silverio Haley Work Phone: [facility] 12-26-2023 17:26-0400 SaO2% (BldA) [Mass fraction] 96 % Dr. Silverio Haley Work Phone: [facility] 12-26-2023 17:26-0400 Systolic blood pressure 138 mm[Hg] Dr. Silverio Haley Work Phone: [facility] 12-26-2023 15:51-0400 Body height 154.[address] Silverio Haley Work Phone: 1(344)288-208930 [place] [address] 12-26-2023 15:51-0400 Body mass index (BMI) [Ratio] 39.4 kg/m2 Dr. Silverio Haley Work Phone: 1(124)565-878730 [place] [address] 12-26-2023 15:51-0400 Body weight 94.[address] Silverio Haley Work Phone: 2(445)540-669430 [place] [address] 12-24-2023 17:05-0400 Body temperature 97.4 [degF] Dr. Silverio Haley Work Phone: 4(146)720-281030 [place] [address] 12-24-2023 17:05-0400 Diastolic blood pressure 85 mm[Hg] Dr. Silverio Haley Work Phone: 7(151)422-284730 [place] [address] 12-24-2023 17:05-0400 Heart rate 88 /min Dr. Silverio Haley Work Phone: 1(440)537-142654 [place] [address] 12-24-2023 17:05-0400 Respiratory rate 16 /min Dr. Silverio Haley Work Phone: 9(712)011-091930 [place] [address] 12-24-2023 17:05-0400 SaO2% (BldA) [Mass fraction] 98 % Dr. Silverio Haley Work Phone: 2(286)600-483030 [place] [address] 12-24-2023 17:05-0400 Systolic blood pressure 123 mm[Hg] Dr. Silverio Haley Work Phone: 8(476)575-220454 [place] [address] 12-24-2023 17:01-0400 Body height 154.[address] Silverio Haley Work Phone: 3(115)215-374354 [place] [address] 12-24-2023 17:01-0400 Body mass index (BMI) [Ratio] 39.1 kg/m2 Dr. Silverio Haley Work Phone: 8(213)192-869630 [place] [address] 12-24-2023 17:01-0400 Body weight 93.[address] Silverio Haley Work Phone: [facility] 12-16-2023 16:51-0400 Body temperature 97.7 [degF] Holly Fraga YARD ENGINEER.SALES MERCHANDISING SPECIALIST Work Phone: [facility] 12-16-2023 16:51-0400 Body weight 94 kg Holly Fraga YARD ENGINEER.SALES MERCHANDISING SPECIALIST Work Phone: [facility] 12-16-2023 16:51-0400 Diastolic blood pressure 78 mm[Hg] Holly Fraga YARD ENGINEER.SALES MERCHANDISING SPECIALIST Work Phone: [facility] 12-16-2023 16:51-0400 Heart rate 80 /min Holly Fraga YARD ENGINEER.SALES MERCHANDISING SPECIALIST Work Phone: [facility] 12-16-2023 16:51-0400 Respiratory rate 18 /min Holly Fraga YARD ENGINEER.SALES MERCHANDISING SPECIALIST Work Phone: [facility] 12-16-2023 16:51-0400 SaO2% (BldA) [Mass fraction] 97 % Holly Fraga YARD ENGINEER.SALES MERCHANDISING SPECIALIST Work Phone: [facility] 12-16-2023 16:51-0400 Systolic blood pressure 110 mm[Hg] Holly Fraga YARD ENGINEER.SALES MERCHANDISING SPECIALIST Work Phone: [facility] 12-09-2023 18:22-0400 Body temperature 98.9 [degF] Dr. Silverio Haley Work Phone: [facility] 12-09-2023 18:22-0400 Diastolic blood pressure 76 mm[Hg] Dr. Silverio Haley Work Phone: [facility] 12-09-2023 18:22-0400 Heart rate 85 /min Dr. Silverio Haley Work Phone: [facility] 12-09-2023 18:22-0400 Respiratory rate 12 /min Dr. Silverio Haley Work Phone: [facility] 12-09-2023 18:22-0400 SaO2% (BldA) [Mass fraction] 100 % Dr. Silverio Haley Work Phone: 0(656)301-698454 [place] [address] 12-09-2023 18:22-0400 Systolic blood pressure 153 mm[Hg] Dr. Silverio Haley Work Phone: 7(901)330-945430 [place] [address] 12-09-2023 17:31-0400 Body height 154.[address] Silverio Haley Work Phone: 4(540)292-924130 [place] [address] 12-09-2023 17:31-0400 Body mass index (BMI) [Ratio] 39.9 kg/m2 Dr. Silverio Haley Work Phone: 4(352)545-071530 [place] [address] 12-09-2023 17:31-0400 Body weight 95.[address] Silverio Haley Work Phone: 6(027)366-645030 [place] [address] 12-04-2023 15:25-0400 Body temperature 97.7 [degF] Dr. Silverio Haley Work Phone: 3(572)456-976630 [place] [address] 12-04-2023 15:25-0400 Diastolic blood pressure 74 mm[Hg] Dr. Silverio Haley Work Phone: 3(961)433-731430 [place] [address] 12-04-2023 15:25-0400 Heart rate 64 /min Dr. Silverio Haley Work Phone: 5(938)240-774254 [place] [address] 12-04-2023 15:25-0400 Respiratory rate 16 /min Dr. Silverio Haley Work Phone: 3(043)019-799254 [place] [address] 12-04-2023 15:25-0400 SaO2% (BldA) [Mass fraction] 99 % Dr. Silverio Haley Work Phone: 9(597)504-505254 [place] [address] 12-04-2023 15:25-0400 Systolic blood pressure 98 mm[Hg] Dr. Silverio Haley Work Phone: 1(084)328-622830 [place] [address] 12-04-2023 09:57-0400 Body height 154.[address] Silverio Haley Work Phone: 0(237)175-537130 [place] [address] 12-04-2023 09:57-0400 Body weight 93.[address] Silverio Haley Work Phone: [facility] 12-03-2023 17:37-0400 Body mass index (BMI) [Ratio] 39.1 kg/m2 Dr. Silverio Haley Work Phone: [facility] 12-03-2023 17:15-0400 Body temperature 98 [degF] [facility] 12-03-2023 17:15-0400 Diastolic blood pressure 78 mm[Hg] [facility] 12-03-2023 17:15-0400 Heart rate 67 /min [facility] 12-03-2023 17:15-0400 Respiratory rate 16 /min [facility] 12-03-2023 17:15-0400 SaO2% (BldA) [Mass fraction] 99 % [facility] 12-03-2023 17:15-0400 Systolic blood pressure 124 mm[Hg] [facility] 12-03-2023 14:23-0400 Body height 154.94 cm [facility] 12-03-2023 14:23-0400 Body mass index (BMI) [Ratio] 39.4 kg/m2 [facility] 12-03-2023 14:23-0400 Body weight 94.7 kg [facility] 10-25-2023 17:29-0500 Diastolic blood pressure 81 mm[Hg] [facility] 10-25-2023 17:29-0500 Systolic blood pressure 113 mm[Hg] [facility] 10-25-2023 16:30-0500 Body height 154.94 cm [facility] 10-25-2023 16:30-0500 Body mass index (BMI) [Ratio] 35.9 kg/m2 [facility] 10-25-2023 16:30-0500 Body temperature 98.3 [degF] [facility] 10-25-2023 16:30-0500 Body weight 86.26 kg [facility] 10-25-2023 16:30-0500 Heart rate 85 /min [facility] 10-25-2023 16:30-0500 Respiratory rate 16 /min [facility] 10-25-2023 16:30-0500 SaO2% (BldA) [Mass fraction] 100 % [facility] 10-24-2023 20:01-0500 Body height 154.94 cm [facility] 10-24-2023 20:01-0500 Body mass index (BMI) [Ratio] 40.2 kg/m2 [facility] 10-24-2023 20:01-0500 Body temperature 97 [degF] [facility] 10-24-2023 20:01-0500 Body weight 96.6 kg [facility] 10-24-2023 20:01-0500 Diastolic blood pressure 85 mm[Hg] [facility] 10-24-2023 20:01-0500 Heart rate 117 /min [facility] 10-24-2023 20:01-0500 Respiratory rate 25 /min [facility] 10-24-2023 20:01-0500 SaO2% (BldA) [Mass fraction] 98 % [facility] 10-24-2023 20:01-0500 Systolic blood pressure 139 mm[Hg] [facility] 09-20-2023 07:23-0500 Body height 154.94 cm [facility] 09-20-2023 07:23-0500 Body mass index (BMI) [Ratio] 39.2 kg/m2 [facility] 09-20-2023 07:23-0500 Body temperature 97.2 [degF] [facility] 09-20-2023 07:23-0500 Body weight 94.34 kg [facility] 09-20-2023 07:23-0500 Diastolic blood pressure 88 mm[Hg] [facility] 09-20-2023 07:23-0500 Heart rate 96 /min [facility] 09-20-2023 07:23-0500 Respiratory rate 15 /min [facility] 09-20-2023 07:23-0500 SaO2% (BldA) [Mass fraction] 99 % [facility] 09-20-2023 07:23-0500 Systolic blood pressure 139 mm[Hg] [facility] 08-18-2023 14:12-0500 Body temperature 98.1 [degF] Milly Praisler-Wood YARD ENGINEER.SALES MERCHANDISING SPECIALIST Work Phone: [facility] 08-18-2023 14:12-0500 Body weight 94.35 kg Milly Praisler-Wood YARD ENGINEER.SALES MERCHANDISING SPECIALIST Work Phone: [facility] 08-18-2023 14:12-0500 Diastolic blood pressure 96 mm[Hg] Milly Praisler-Wood YARD ENGINEER.SALES MERCHANDISING SPECIALIST Work Phone: [facility] 08-18-2023 14:12-0500 Heart rate 80 /min Milly Praisler-Wood YARD ENGINEER.SALES MERCHANDISING SPECIALIST Work Phone: [facility] 08-18-2023 14:12-0500 Respiratory rate 16 /min Milly Praisler-Wood YARD ENGINEER.SALES MERCHANDISING SPECIALIST Work Phone: [facility] 08-18-2023 14:12-0500 SaO2% (BldA) [Mass fraction] 96 % Milly Praisler-Wood YARD ENGINEER.SALES MERCHANDISING SPECIALIST Work Phone: [facility] 08-18-2023 14:12-0500 Systolic blood pressure 142 mm[Hg] Milly Praisler-Wood YARD ENGINEER.SALES MERCHANDISING SPECIALIST Work Phone: [facility] 08-12-2023 16:57-0500 Body temperature 97.81 [degF] Milly Praisler-Wood YARD ENGINEER.SALES MERCHANDISING SPECIALIST Work Phone: [facility] 08-12-2023 16:57-0500 Body weight 94.62 kg Milly Praisler-Wood YARD ENGINEER.SALES MERCHANDISING SPECIALIST Work Phone: [facility] 08-12-2023 16:57-0500 Diastolic blood pressure 78 mm[Hg] Milly Praisler-Wood YARD ENGINEER.SALES MERCHANDISING SPECIALIST Work Phone: [facility] 08-12-2023 16:57-0500 Heart rate 80 /min Milly Praisler-Wood YARD ENGINEER.SALES MERCHANDISING SPECIALIST Work Phone: [facility] 08-12-2023 16:57-0500 Respiratory rate 21 /min Milly Praisler-Wood YARD ENGINEER.SALES MERCHANDISING SPECIALIST Work Phone: [facility] 08-12-2023 16:57-0500 SaO2% (BldA) [Mass fraction] 98 % Millyson Henderson APRN.SALES MERCHANDISING SPECIALIST Work Phone: [facility] 08-12-2023 16:57-0500 Systolic blood pressure 110 mm[Hg] Milly Henderson YARD ENGINEER.SALES MERCHANDISING SPECIALIST Work Phone: [facility] 07-22-2023 17:42-0500 Respiratory rate 18 /min [facility] 07-22-2023 16:54-0500 Diastolic blood pressure 78 mm[Hg] [facility] 07-22-2023 16:54-0500 Heart rate 89 /min [facility] 07-22-2023 16:54-0500 Systolic blood pressure 114 mm[Hg] [facility] 07-22-2023 15:43-0500 Body height 154.94 cm [facility] 07-22-2023 15:43-0500 Body mass index (BMI) [Ratio] 39.6 kg/m2 [facility] 07-22-2023 15:43-0500 Body temperature 98.1 [degF] [facility] 07-22-2023 15:43-0500 Body weight 95.3 kg [facility] 07-22-2023 15:43-0500 SaO2% (BldA) [Mass fraction] 96 % [facility] 06-11-2023 16:44-0400 Heart rate 81 /min [facility] 06-11-2023 16:44-0400 Respiratory rate 18 /min [facility] 06-11-2023 16:44-0400 SaO2% (BldA) [Mass fraction] 100 % [facility] 06-11-2023 16:29-0400 Body height 154.94 cm [facility] 06-11-2023 16:29-0400 Body temperature 97.5 [degF] [facility] 06-11-2023 16:29-0400 Diastolic blood pressure 141 mm[Hg] [facility] 06-11-2023 16:29-0400 Systolic blood pressure 170 mm[Hg] [facility] 06-06-2023 17:22-0400 Diastolic blood pressure 102 mm[Hg] [facility] 06-06-2023 17:22-0400 Systolic blood pressure 168 mm[Hg] [facility] 06-06-2023 16:49-0400 Body mass index (BMI) [Ratio] 40.5 kg/m2 [facility] 06-06-2023 16:49-0400 Body weight 97.3 kg [facility] 06-06-2023 16:42-0400 Body height 154.94 cm [facility] 06-06-2023 16:42-0400 Body temperature 98.2 [degF] [facility] 06-06-2023 16:42-0400 Heart rate 95 /min [facility] 06-06-2023 16:42-0400 Respiratory rate 16 /min [facility] 06-06-2023 16:42-0400 SaO2% (BldA) [Mass fraction] 98 % [facility] 05-04-2023 17:22-0400 Body mass index (BMI) [Ratio] 38.3 kg/m2 [facility] 05-04-2023 17:22-0400 Body weight 92.07 kg [facility] 05-04-2023 17:02-0400 Body height 154.94 cm [facility] 05-04-2023 17:02-0400 Body temperature 98 [degF] [facility] 05-04-2023 17:02-0400 Diastolic blood pressure 77 mm[Hg] [facility] 05-04-2023 17:02-0400 Heart rate 98 /min [facility] 05-04-2023 17:02-0400 Respiratory rate 18 /min [facility] 05-04-2023 17:02-0400 SaO2% (BldA) [Mass fraction] 99 % [facility] 05-04-2023 17:02-0400 Systolic blood pressure 134 mm[Hg] [facility] 04-16-2023 16:34-0400 Body mass index (BMI) [Ratio] 38.7 kg/m2 [facility] 04-16-2023 16:34-0400 Body temperature 98.8 [degF] [facility] 04-16-2023 16:34-0400 Body weight 92.98 kg [facility] 04-16-2023 16:34-0400 Diastolic blood pressure 69 mm[Hg] [facility] 04-16-2023 16:34-0400 Heart rate 90 /min [facility] 04-16-2023 16:34-0400 Respiratory rate 17 /min [facility] 04-16-2023 16:34-0400 SaO2% (BldA) [Mass fraction] 99 % [facility] 04-16-2023 16:34-0400 Systolic blood pressure 108 mm[Hg] [facility] 04-01-2023 17:15-0400 Body height 154.94 cm [facility] 04-01-2023 17:15-0400 Body mass index (BMI) [Ratio] 38.8 kg/m2 [facility] 04-01-2023 17:15-0400 Body temperature 98.1 [degF] [facility] 04-01-2023 17:15-0400 Body weight 93.25 kg [facility] 04-01-2023 17:15-0400 Diastolic blood pressure 98 mm[Hg] [facility] 04-01-2023 17:15-0400 Heart rate 75 /min [facility] 04-01-2023 17:15-0400 Respiratory rate 17 /min [facility] 04-01-2023 17:15-0400 SaO2% (BldA) [Mass fraction] 99 % [facility] 04-01-2023 17:15-0400 Systolic blood pressure 116 mm[Hg] [facility] 03-30-2023 08:36-0400 Body weight 92.08 kg Merced Evangelina YARD ENGINEER.[employer]CH[employer]ISING SPECIALIST Work Phone: [facility] 03-30-2023 08:36-0400 Diastolic blood pressure 70 mm[Hg] Merced Evangelina YARD ENGINEER.SALES MERCHANDISING SPECIALIST Work Phone: [facility] 03-30-2023 08:36-0400 Heart rate 70 /min Merced Evangelina YARD ENGINEER.SALES MERCHANDISING SPECIALIST Work Phone: [facility] 03-30-2023 08:36-0400 SaO2% (BldA) [Mass fraction] 98 % Merced Beasleyr YARD ENGINEER.SALES MERCHANDISING SPECIALIST Work Phone: [facility] 03-30-2023 08:36-0400 Systolic blood pressure 100 mm[Hg] Merced Beasleyr YARD ENGINEER.SALES MERCHANDISING SPECIALIST Work Phone: [facility] 03-16-2023 15:40-0400 Body temperature 97.7 [degF] PIERCE KAPPER YARD ENGINEER-SALES MERCHANDISING SPECIALIST [facility] 03-16-2023 15:40-0400 Diastolic Blood Pressure Non-Invasive 55 1 PIERCE KAPPER YARD ENGINEER-SALES MERCHANDISING SPECIALIST [facility] 03-16-2023 15:40-0400 Heart rate 77 /min PIERCE KAPPER YARD ENGINEER-SALES MERCHANDISING SPECIALIST [facility] 03-16-2023 15:40-0400 Respiratory rate 16 /min PIERCE KAPPER YARD ENGINEER-SALES MERCHANDISING SPECIALIST [facility] 03-16-2023 15:40-0400 Systolic Blood Pressure Non-Invasive 96 1 PIERCE KAPPER YARD ENGINEER-SALES MERCHANDISING SPECIALIST [facility] 03-16-2023 11:09-0400 Body temperature 97.7 [degF] PIERCE KAPPER YARD ENGINEER-SALES MERCHANDISING SPECIALIST [facility] 03-16-2023 11:09-0400 Diastolic Blood Pressure Non-Invasive 56 1 PIERCE KAPPER YARD ENGINEER-SALES MERCHANDISING SPECIALIST [facility] 03-16-2023 11:09-0400 Heart rate 63 /min PIERCE KAPPER YARD ENGINEER-SALES MERCHANDISING SPECIALIST [facility] 03-16-2023 11:09-0400 Respiratory rate 16 /min PIERCE KAPPER YARD ENGINEER-SALES MERCHANDISING SPECIALIST [facility] 03-16-2023 11:09-0400 Systolic Blood Pressure Non-Invasive 99 1 PIERCE KAPPER YARD ENGINEER-SALES MERCHANDISING SPECIALIST [facility] 03-16-2023 07:20-0400 Body temperature 97.52 [degF] PIERCE KAPPER YARD ENGINEER-SALES MERCHANDISING SPECIALIST [facility] 03-16-2023 07:20-0400 Diastolic Blood Pressure Non-Invasive 57 1 PIERCE KAPPER YARD ENGINEER-SALES MERCHANDISING SPECIALIST [facility] 03-16-2023 07:20-0400 Heart rate 59 /min PIERCE KAPPER YARD ENGINEER-SALES MERCHANDISING SPECIALIST [facility] 03-16-2023 07:20-0400 Respiratory rate 16 /min PIERCE KAPPER YARD ENGINEER-SALES MERCHANDISING SPECIALIST [facility] 03-16-2023 07:20-0400 Systolic Blood Pressure Non-Invasive 108 1 PIERCE KAPPER YARD ENGINEER-SALES MERCHANDISING SPECIALIST [facility] 03-15-2023 11:55-0400 Heart rate 56 /min PIERCE KAPPER YARD ENGINEER-SALES MERCHANDISING SPECIALIST [facility] 03-15-2023 11:21-0400 Body height 155 cm PIERCE KAPPER YARD ENGINEER-SALES MERCHANDISING SPECIALIST [facility] 03-15-2023 11:21-0400 Body weight 92 kg PIERCE KAPPER YARD ENGINEER-SALES MERCHANDISING SPECIALIST [facility] 03-15-2023 11:21-0400 Body weight 38.29 kg/m2 PIERCE KAPPER YARD ENGINEER-SALES MERCHANDISING SPECIALIST [facility] 03-11-2023 13:52-0400 Body temperature 97 [degF] Merced Beasleyr YARD ENGINEER.SALES MERCHANDISING SPECIALIST Work Phone: [facility] 03-11-2023 13:52-0400 Body weight 93.8 kg Merced Evangelina YARD ENGINEER.SALES MERCHANDISING SPECIALIST Work Phone: [facility] 03-11-2023 13:52-0400 Diastolic blood pressure 78 mm[Hg] Merced Evangelina YARD ENGINEER.SALES MERCHANDISING SPECIALIST Work Phone: [facility] 03-11-2023 13:52-0400 Heart rate 93 /min Merced Evangelina YARD ENGINEER.SALES MERCHANDISING SPECIALIST Work Phone: [facility] 03-11-2023 13:52-0400 SaO2% (BldA) [Mass fraction] 97 % Merced Evangelina YARD ENGINEER.SALES MERCHANDISING SPECIALIST Work Phone: [facility] 03-11-2023 13:52-0400 Systolic blood pressure 138 mm[Hg] Merced Evangelina YARD ENGINEER.SALES MERCHANDISING SPECIALIST Work Phone: [facility] 03-09-2023 17:34-0400 Body temperature 99.19 [degF] Krislyn Aberegg PA Work Phone: [facility] 03-09-2023 17:34-0400 Body weight 94.26 kg Krislyn Aberegg PA Work Phone: [facility] 03-09-2023 17:34-0400 Diastolic blood pressure 80 mm[Hg] Krislyn Aberegg PA Work Phone: [facility] 03-09-2023 17:34-0400 Heart rate 104 /min Krislyn Aberegg PA Work Phone: [facility] 03-09-2023 17:34-0400 Respiratory rate 20 /min Krislyn Aberegg PA Work Phone: [facility] 03-09-2023 17:34-0400 SaO2% (BldA) [Mass fraction] 96 % Krislyn Aberegg PA Work Phone: [facility] 03-09-2023 17:34-0400 Systolic blood pressure 158 mm[Hg] Krislyn Aberegg PA Work Phone: [facility] 02-16-2023 08:32-0400 Body weight 95.25 kg Merced Evangelina YARD ENGINEER.SALES MERCHANDISING SPECIALIST Work Phone: [facility] 02-16-2023 08:32-0400 Diastolic blood pressure 84 mm[Hg] Merced Evangelina YARD ENGINEER.SALES MERCHANDISING SPECIALIST Work Phone: [facility] 02-16-2023 08:32-0400 Heart rate 80 /min Merced Evangelina YARD ENGINEER.SALES MERCHANDISING SPECIALIST Work Phone: [facility] 02-16-2023 08:32-0400 SaO2% (BldA) [Mass fraction] 98 % Merced Evangelina YARD ENGINEER.SALES MERCHANDISING SPECIALIST Work Phone: [facility] 02-16-2023 08:32-0400 Systolic blood pressure 118 mm[Hg] Merced Evangelina YARD ENGINEER.SALES MERCHANDISING SPECIALIST Work Phone: [facility] 02-10-2023 18:00-0400 Respiratory rate 18 /min [facility] 02-10-2023 16:34-0400 Heart rate 79 /min [facility] 02-10-2023 16:34-0400 SaO2% (BldA) [Mass fraction] 94 % [facility] 02-10-2023 14:35-0400 Body height 154.94 cm [facility] 02-10-2023 14:35-0400 Body mass index (BMI) [Ratio] 40.6 kg/m2 [facility] 02-10-2023 14:35-0400 Body temperature 96.3 [degF] [facility] 02-10-2023 14:35-0400 Body weight 97.4 kg [facility] 02-10-2023 14:35-0400 Diastolic blood pressure 85 mm[Hg] [facility] 02-10-2023 14:35-0400 Systolic blood pressure 146 mm[Hg] [facility] 02-09-2023 22:58-0400 Diastolic blood pressure 93 mm[Hg] [facility] 02-09-2023 22:58-0400 Heart rate 66 /min [facility] 02-09-2023 22:58-0400 Respiratory rate 18 /min [facility] 02-09-2023 22:58-0400 SaO2% (BldA) [Mass fraction] 96 % [facility] 02-09-2023 22:58-0400 Systolic blood pressure 153 mm[Hg] [facility] 02-09-2023 19:34-0400 Body temperature 97.3 [degF] [facility] 02-09-2023 19:25-0400 Body height 154.94 cm [facility] 02-09-2023 19:25-0400 Body mass index (BMI) [Ratio] 43 kg/m2 [facility] 02-09-2023 19:25-0400 Body weight 103.4 kg [facility] 01-21-2023 15:14-0400 Body temperature 98.06 [degF] JAIME BRADFORD MD [facility] 01-21-2023 15:14-0400 Body weight 97.7 kg JAIME BRADFORD MD [facility] 01-21-2023 15:14-0400 Diastolic Blood Pressure Non-Invasive 94 1 JAIME BRADFORD MD [facility] 01-21-2023 15:14-0400 Heart rate 89 /min JAIME BRADFORD MD [facility] 01-21-2023 15:14-0400 Respiratory rate 20 /min JAIME BRADFORD MD [facility] 01-21-2023 15:14-0400 Systolic Blood Pressure Non-Invasive 142 1 JAIME BRADFORD MD [facility] 01-19-2023 19:07-0400 Body temperature 98.6 [degF] Robbin Hernandez MD Work Phone: [facility] 01-19-2023 19:07-0400 Body weight 97.98 kg Robbin Hernandez MD Work Phone: [facility] 01-19-2023 19:07-0400 Diastolic blood pressure 76 mm[Hg] Robbin Hernandez MD Work Phone: [facility] 01-19-2023 19:07-0400 Heart rate 84 /min Robbin Hernandez MD Work Phone: [facility] 01-19-2023 19:07-0400 Respiratory rate 18 /min Robbin Hernandez MD Work Phone: [facility] 01-19-2023 19:07-0400 Systolic blood pressure 130 mm[Hg] Robbin Hernandez MD Work Phone: [facility] 01-15-2023 11:07-0400 Body temperature 98.6 [degF] DONNA VERAS DO [facility] 01-15-2023 11:07-0400 Body weight 90.9 kg DONNA VERAS DO [facility] 01-15-2023 11:07-0400 Diastolic Blood Pressure Non-Invasive 82 1 DONNA VERAS DO [facility] 01-15-2023 11:07-0400 Heart rate 100 /min DONNA VERAS DO [facility] 01-15-2023 11:07-0400 Respiratory rate 18 /min DONNA VERAS DO [facility] 01-15-2023 11:07-0400 Systolic Blood Pressure Non-Invasive 126 1 DONNA VERAS DO [facility] 01-07-2023 13:41-0400 Diastolic Blood Pressure Non-Invasive 86 1 ETHAN HENDERSON MD [facility] 01-07-2023 13:41-0400 Systolic Blood Pressure Non-Invasive 160 1 ETHAN HENDERSON MD [facility] 01-07-2023 13:14-0400 Body height 155 cm ETHAN HENDERSON MD [facility] 01-07-2023 13:14-0400 Body temperature 97.88 [degF] ETHAN HENDERSON MD [facility] 01-07-2023 13:14-0400 Body weight 99 kg ETHAN HENDERSON MD [facility] 01-07-2023 13:14-0400 Heart rate 110 /min ETHAN HENDERSON MD [facility] 01-07-2023 13:14-0400 Respiratory rate 16 /min ETHAN HENDERSON MD [facility] 01-07-2023 11:19-0400 Body temperature 97.81 [degF] Nasrin Athy PA-C Work Phone: [facility] 01-07-2023 11:19-0400 Body weight 98.88 kg Nasrin Athy PA-C Work Phone: [facility] 01-07-2023 11:19-0400 Diastolic blood pressure 72 mm[Hg] Nasrin Athy PA-C Work Phone: [facility] 01-07-2023 11:19-0400 Heart rate 100 /min Nasrin Athy PA-C Work Phone: [facility] 01-07-2023 11:19-0400 Respiratory rate 18 /min Nasrin Athy PA-C Work Phone: [facility] 01-07-2023 11:19-0400 SaO2% (BldA) [Mass fraction] 96 % Nasrin Athy PA-C Work Phone: [facility] 01-07-2023 11:19-0400 Systolic blood pressure 122 mm[Hg] Nasrin Athy PA-C Work Phone: [facility] 01-04-2023 13:16-0400 Diastolic Blood Pressure Non-Invasive 80 1 KAREY GILMORE MD [facility] 01-04-2023 13:16-0400 Heart rate 77 /min KAREY GILMORE MD [facility] 01-04-2023 13:16-0400 Respiratory rate 16 /min KAREY GILMORE MD [facility] 01-04-2023 13:16-0400 Systolic Blood Pressure Non-Invasive 118 1 KAREY GILMORE MD [facility] 01-04-2023 12:07-0400 Body temperature 97.88 [degF] KAREY GILMORE MD [facility] 01-04-2023 12:07-0400 Body weight 93.2 kg KAREY GILMORE MD [facility] 01-04-2023 12:07-0400 Diastolic Blood Pressure Non-Invasive 86 1 KAREY GILMORE MD [facility] 01-04-2023 12:07-0400 Heart rate 83 /min KAREY GILMORE MD [facility] 01-04-2023 12:07-0400 Respiratory rate 18 /min KAREY GILMORE MD [facility] 01-04-2023 12:07-0400 Systolic Blood Pressure Non-Invasive 123 1 KAREY GILMORE MD [facility] 12-24-2022 21:17-0400 Diastolic Blood Pressure Non-Invasive 88 1 MARCELA LOPEZ MD [facility] 12-24-2022 21:17-0400 Heart rate 108 /min MARCELA LOPEZ MD [facility] 12-24-2022 21:17-0400 Respiratory rate 20 /min MARCELA LOPEZ MD [facility] 12-24-2022 21:17-0400 Systolic Blood Pressure Non-Invasive 124 1 MARCELA LOPEZ MD [facility] 12-24-2022 19:40-0400 Body temperature 98.78 [degF] MARCELA LOPEZ MD [facility] 12-24-2022 19:40-0400 Diastolic Blood Pressure Non-Invasive 98 1 MARCELA LOPEZ MD [facility] 12-24-2022 19:40-0400 Heart rate 122 /min MARCELA LOPEZ MD [facility] 12-24-2022 19:40-0400 Respiratory rate 20 /min MARCELA LOPEZ MD [facility] 12-24-2022 19:40-0400 Systolic Blood Pressure Non-Invasive 136 1 MARCELA LOPEZ MD [facility] 11-18-2022 13:00-0500 Diastolic blood pressure 78 mm[Hg] [facility] 11-18-2022 13:00-0500 Heart rate 62 /min [facility] 11-18-2022 13:00-0500 Respiratory rate 16 /min [facility] 11-18-2022 13:00-0500 SaO2% (BldA) [Mass fraction] 99 % [facility] 11-18-2022 13:00-0500 Systolic blood pressure 104 mm[Hg] [facility] 11-18-2022 09:50-0500 Body height 154.94 cm [facility] 11-18-2022 09:50-0500 Body mass index (BMI) [Ratio] 39.9 kg/m2 [facility] 11-18-2022 09:50-0500 Body temperature 97.7 [degF] [facility] 11-18-2022 09:50-0500 Body weight 95.7 kg [facility] 10-13-2022 16:26-0500 Body height 155 cm KUN ELLIS MD [facility] 10-13-2022 16:26-0500 Body temperature 97.7 [degF] KUN ELLIS MD [facility] 10-13-2022 16:26-0500 Body weight 96.8 kg KUN ELLIS MD [facility] 10-13-2022 16:26-0500 Diastolic Blood Pressure Non-Invasive 50 1 KUN ELLIS MD [facility] 10-13-2022 16:26-0500 Heart rate 94 /min KUN ELLIS MD [facility] 10-13-2022 16:26-0500 Respiratory rate 20 /min KUN ELLIS MD [facility] 10-13-2022 16:26-0500 Systolic Blood Pressure Non-Invasive 136 1 KUN ELLIS MD [facility] 10-12-2022 10:04-0500 Body temperature 98.06 [degF] ANNE BURROWS MD [facility] 10-12-2022 10:04-0500 Diastolic Blood Pressure Non-Invasive 77 1 ANNE BURROWS MD [facility] 10-12-2022 10:04-0500 Heart rate 88 /min ANNE BURROWS MD [facility] 10-12-2022 10:04-0500 Respiratory rate 18 /min ANNE BURROWS MD [facility] 10-12-2022 10:04-0500 Systolic Blood Pressure Non-Invasive 133 1 ANNE BURROWS MD [facility] 09-08-2022 11:24-0500 Body temperature 97.3 [degF] Holly Fraga YARD ENGINEER.SALES MERCHANDISING SPECIALIST Work Phone: [facility] 09-08-2022 11:24-0500 Body weight 100.7 kg Holly Fraga YARD ENGINEER.SALES MERCHANDISING SPECIALIST Work Phone: [facility] 09-08-2022 11:24-0500 Diastolic blood pressure 76 mm[Hg] Holly Fraga YARD ENGINEER.SALES MERCHANDISING SPECIALIST Work Phone: [facility] 09-08-2022 11:24-0500 Heart rate 80 /min Holly Fraga YARD ENGINEER.SALES MERCHANDISING SPECIALIST Work Phone: [facility] 09-08-2022 11:24-0500 Respiratory rate 21 /min Holly Fraga YARD ENGINEER.SALES MERCHANDISING SPECIALIST Work Phone: [facility] 09-08-2022 11:24-0500 SaO2% (BldA) [Mass fraction] 99 % Holly Fraga YARD ENGINEER.SALES MERCHANDISING SPECIALIST Work Phone: [facility] 09-08-2022 11:24-0500 Systolic blood pressure 128 mm[Hg] Holly Fraga YARD ENGINEER.SALES MERCHANDISING SPECIALIST Work Phone: [facility] 09-07-2022 03:59-0500 Diastolic blood pressure 62 mm[Hg] [facility] 09-07-2022 03:59-0500 Heart rate 67 /min [facility] 09-07-2022 03:59-0500 Respiratory rate 12 /min [facility] 09-07-2022 03:59-0500 SaO2% (BldA) [Mass fraction] 97 % [facility] 09-07-2022 03:59-0500 Systolic blood pressure 106 mm[Hg] [facility] 09-07-2022 01:50-0500 Body height 154.94 cm [facility] Work Phone: 09-07-2022 01:50-0500 Body mass index (BMI) [Ratio] 45.8 kg/m2 [facility] 09-07-2022 01:50-0500 Body temperature 96.2 [degF] [facility] 09-07-2022 01:50-0500 Body weight 110 kg [facility] 07-29-2022 14:19-0500 Respiratory rate 18 /min [facility] 07-29-2022 14:19-0500 SaO2% (BldA) [Mass fraction] 95 % [facility] 07-29-2022 14:18-0500 Heart rate 80 /min [facility] 07-29-2022 13:13-0500 Body temperature 99.6 [degF] [facility] 07-29-2022 13:13-0500 Diastolic blood pressure 68 mm[Hg] [facility] 07-29-2022 13:13-0500 Systolic blood pressure 140 mm[Hg] [facility] 07-29-2022 13:11-0500 Body height 154.94 cm [facility] Work Phone: 07-29-2022 13:11-0500 Body mass index (BMI) [Ratio] 38.8 kg/m2 [facility] 07-29-2022 13:11-0500 Body weight 93.3 kg [facility] 07-18-2022 18:14-0400 Body temperature 98.29 [degF] Nasrin Athy PA-C Work Phone: [facility] 07-18-2022 18:14-0400 Body weight 95.25 kg Nasrin Athy PA-C Work Phone: [facility] 07-18-2022 18:14-0400 Diastolic blood pressure 80 mm[Hg] Nasrin Athy PA-C Work Phone: [facility] 07-18-2022 18:14-0400 Heart rate 74 /min Nasrin Athy PA-C Work Phone: [facility] 07-18-2022 18:14-0400 Respiratory rate 18 /min Nasrinhanna Lagunasy PA-C Work Phone: [facility] 07-18-2022 18:14-0400 SaO2% (BldA) [Mass fraction] 98 % Nasrin Jannethy PA-C Work Phone: [facility] 07-18-2022 18:14-0400 Systolic blood pressure 110 mm[Hg] Nasrinhanna Lagunasy PA-C Work Phone: [facility] 06-26-2022 11:42-0400 Body weight 94.8 kg Isabel Arias PA-C Work Phone: [facility] 06-26-2022 11:42-0400 Diastolic blood pressure 78 mm[Hg] Isabel Arias PA-C Work Phone: [facility] 06-26-2022 11:42-0400 Heart rate 82 /min Isabel Arias PA-C Work Phone: [facility] 06-26-2022 11:42-0400 Respiratory rate 16 /min Isabel Arias PA-C Work Phone: [facility] 06-26-2022 11:42-0400 Systolic blood pressure 122 mm[Hg] Isabel Arias PA-C Work Phone: [facility] 05-12-2022 17:10-0400 Body temperature 98.91 [degF] Marcelino Bess YARD ENGINEER.SALES MERCHANDISING SPECIALIST Work Phone: [facility] 05-12-2022 17:10-0400 Body weight 94.98 kg Marcelino Bess YARD ENGINEER.SALES MERCHANDISING SPECIALIST Work Phone: [facility] 05-12-2022 17:10-0400 Diastolic blood pressure 88 mm[Hg] Marcelino Bess YARD ENGINEER.SALES MERCHANDISING SPECIALIST Work Phone: [facility] 05-12-2022 17:10-0400 Heart rate 86 /min Marcelino Bess YARD ENGINEER.SALES MERCHANDISING SPECIALIST Work Phone: [facility] 05-12-2022 17:10-0400 Respiratory rate 18 /min Marcelino Pendlebury YARD ENGINEER.SALES MERCHANDISING SPECIALIST Work Phone: [facility] 05-12-2022 17:10-0400 SaO2% (BldA) [Mass fraction] 98 % Marcelino Maria Alejandra YARD ENGINEER.SALES MERCHANDISING SPECIALIST Work Phone: [facility] 05-12-2022 17:10-0400 Systolic blood pressure 128 mm[Hg] Marcelino Maria Alejandra YARD ENGINEER.SALES MERCHANDISING SPECIALIST Work Phone: [facility] 04-10-2022 10:58-0400 Body temperature 98.1 [degF] [facility] Work Phone: 04-10-2022 10:58-0400 Diastolic blood pressure 66 mm[Hg] [facility] Work Phone: 04-10-2022 10:58-0400 Heart rate 105 /min [facility] Work Phone: 04-10-2022 10:58-0400 Respiratory rate 11 /min [facility] Work Phone: 04-10-2022 10:58-0400 SaO2% (BldA) [Mass fraction] 97 % [facility] Work Phone: 04-10-2022 10:58-0400 Systolic blood pressure 135 mm[Hg] [facility] Work Phone: 04-10-2022 10:57-0400 Body height 154.94 cm [facility] Work Phone: 04-10-2022 10:57-0400 Body mass index (BMI) [Ratio] 39 kg/m2 [facility] Work Phone: 04-10-2022 10:57-0400 Body weight 93.7 kg [facility] Work Phone: 02-06-2022 22:21-0400 Diastolic blood pressure 70 mm[Hg] MELLO BAUER [facility] 02-06-2022 22:21-0400 Heart rate 82 /min MELLO BAUER MD [facility] 02-06-2022 22:21-0400 Respiratory rate 18 /min MELLO BAUER MD [facility] 02-06-2022 22:21-0400 Systolic blood pressure 113 mm[Hg] MELLO BAUER MD [facility] 02-06-2022 18:35-0400 Body temperature 98.42 [degF] MELLO BAUER MD [facility] 02-06-2022 18:35-0400 Body weight 93.3 kg MELLO BAUER MD [facility] 02-06-2022 18:35-0400 Diastolic blood pressure 71 mm[Hg] MELLO BAUER MD [facility] 02-06-2022 18:35-0400 Heart rate 103 /min MELLO BAUER MD [facility] 02-06-2022 18:35-0400 Respiratory rate 16 /min MELLO BAUER MD [facility] 02-06-2022 18:35-0400 Systolic blood pressure 141 mm[Hg] MELLO BAUER MD [facility] 10-04-2021 20:24-0500 SaO2% (BldA) [Mass fraction] 98 % [facility] Work Phone: 10-04-2021 18:17-0500 Body height 154.94 cm [facility] Work Phone: 10-04-2021 18:17-0500 Body mass index (BMI) [Ratio] 39.6 kg/m2 [facility] Work Phone: 10-04-2021 18:17-0500 Body temperature 98 [degF] [facility] Work Phone: 10-04-2021 18:17-0500 Body weight 95.25 kg [facility] Work Phone: 10-04-2021 18:17-0500 Diastolic blood pressure 72 mm[Hg] [facility] Work Phone: 10-04-2021 18:17-0500 Heart rate 78 /min [facility] Work Phone: 10-04-2021 18:17-0500 Respiratory rate 16 /min [facility] Work Phone: 10-04-2021 18:17-0500 Systolic blood pressure 127 mm[Hg] [facility] Work Phone: 09-15-2021 14:01-0500 Body mass index (BMI) [Ratio] 38.4 kg/m2 [facility] Work Phone: 09-15-2021 14:01-0500 Body temperature 98.1 [degF] [facility] Work Phone: 09-15-2021 14:01-0500 Body weight 95.25 kg [facility] Work Phone: 09-15-2021 14:01-0500 Diastolic blood pressure 85 mm[Hg] [facility] Work Phone: 09-15-2021 14:01-0500 Heart rate 103 /min [facility] Work Phone: 09-15-2021 14:01-0500 Respiratory rate 16 /min [facility] Work Phone: 09-15-2021 14:01-0500 SaO2% (BldA) [Mass fraction] 95 % [facility] Work Phone: 09-15-2021 14:01-0500 Systolic blood pressure 113 mm[Hg] [facility] Work Phone: 09-13-2021 14:34-0500 Diastolic blood pressure 62 mm[Hg] ANNE BURROWS MD [facility] 09-13-2021 14:34-0500 Heart rate 88 /min ANNE BURROWS MD [facility] 09-13-2021 14:34-0500 Respiratory rate 18 /min ANNE BURROWS MD [facility] 09-13-2021 14:34-0500 Systolic blood pressure 100 mm[Hg] ANNE BURROWS MD [facility] 09-13-2021 13:13-0500 Body temperature 98.24 [degF] ANNE BURROWS MD [facility] 09-13-2021 13:13-0500 Diastolic blood pressure 81 mm[Hg] ANNE BURROWS MD [facility] 09-13-2021 13:13-0500 Heart rate 91 /min ANNE BURROWS MD [facility] 09-13-2021 13:13-0500 Respiratory rate 18 /min ANNE BURROWS MD [facility] 09-13-2021 13:13-0500 Systolic blood pressure 137 mm[Hg] ANNE BURROWS MD [facility] 08-16-2021 16:12-0500 Body height 155 cm ANNE BURROWS MD [facility] 08-16-2021 16:12-0500 Body temperature 97.88 [degF] ANNE BURROWS MD [facility] 08-16-2021 16:12-0500 Body weight 91 kg ANNE BURROWS MD [facility] 08-16-2021 16:12-0500 Diastolic blood pressure 68 mm[Hg] ANNE BURROWS MD [facility] 08-16-2021 16:12-0500 Heart rate 55 /min ANNE BURROWS MD [facility] 08-16-2021 16:12-0500 Respiratory rate 16 /min ANNE BURROWS MD [facility] 08-16-2021 16:12-0500 Systolic blood pressure 115 mm[Hg] ANNE BURROWS MD [facility] 10-09-2019 06:36-0500 Body temperature 97.3 [degF] [...] 10-07-2019 08:24-0500 Body weight 74.84 kg Delon Palacios MD Work Phone: [facility] Work Phone: 09-30-2019 10:40-0500 Body height 154.9 cm Delon Palacios MD Work Phone: [facility] Work Phone: 09-30-2019 10:40-0500 Body mass index (BMI) [Ratio] 31.18 kg/m2 Delon Palacios MD Work Phone: [facility] Work Phone: 09-30-2019 10:40-0500 Body weight 74.84 kg Delon Palacios MD Work Phone: [facility] Work Phone: 09-11-2019 17:36-0500 Diastolic blood pressure 73 mm[Hg] Rich Johnson DO Work Phone: [facility] Work Phone: 09-11-2019 17:36-0500 Heart rate 86 /min Rich Johnson DO Work Phone: [facility] Work Phone: 09-11-2019 17:36-0500 Respiratory rate 18 /min Rich Johnson DO Work Phone: [facility] Work Phone: 09-11-2019 17:36-0500 SaO2% (BldA) [Mass fraction] 97 % Rich Johnson DO Work Phone: [facility] Work Phone: 09-11-2019 17:36-0500 Systolic blood pressure 119 mm[Hg] Rich Johnson DO Work Phone: [facility] Work Phone: 09-11-2019 11:58-0500 Body height 154.9 cm Rich Johnson DO Work Phone: [facility] Work Phone: 09-11-2019 11:58-0500 Body mass index (BMI) [Ratio] 31.18 kg/m2 Rich Johnson DO Work Phone: [facility] Work Phone: 09-11-2019 11:58-0500 Body temperature 98.6 [degF] Rich Johnson DO Work Phone: [facility] Work Phone: 09-11-2019 11:58-0500 Body weight 74.84 kg Rich Johnson DO Work Phone: [facility] Work Phone: 09-05-2019 09:53-0500 Body temperature 98.1 [degF] Raghu Rivers MD Work Phone: [facility] Work Phone: 09-05-2019 09:53-0500 Diastolic blood pressure 73 mm[Hg] Raghu Rivers MD Work Phone: [facility] Work Phone: 09-05-2019 09:53-0500 Heart rate 93 /min Raghu Rivers MD Work Phone: [facility] Work Phone: 09-05-2019 09:53-0500 Respiratory rate 18 /min Raghu Rivers MD Work Phone: [facility] Work Phone: 09-05-2019 09:53-0500 SaO2% (BldA) [Mass fraction] 94 % Raghu Rivers MD Work Phone: [facility] Work Phone: 09-05-2019 09:53-0500 Systolic blood pressure 134 mm[Hg] Raghu Rivers MD Work Phone: [facility] Work Phone: Encounters Encounter Date Encounter Type Care Provider Facility Start: 05-15-2025 End: 05-15-2025 Emergency department patient visit Dr. Silverio Haley MD Work Phone: -Emergency Department Work Phone: Start: 05-12-2025 End: 05-12-2025 Telephone encounter Silverio Haley MD Work Phone: [facility] [place] Comment on above: Patient Update Start: 03-02-2025 End: 03-29-2025 Telephone encounter Sunny Story MD Work Phone: [facility] Clinical Communication Comment on above: Other (Missed call f rom Dr. Story's Nurse) Start: 02-28-2025 End: 03-16-2025 ambulatory Ariella [facility] Clinical [facility] Start: 02-28-2025 End: 03-16-2025 Patient encounter procedure Ariella Kent [facility] Start: 02-24-2025 End: 02-27-2025 ambulatory Shakila Rees RN [facility] Clinical Communication Start: 02-24-2025 End: 02-27-2025 Patient encounter procedure Shakila Doea Clinical Communication Start: 02-24-2025 End: 02-24-2025 Emergency department patient visit SUDHA SAWYER [facility] Comment on above: Lower abdominal pain (Primary Dx); Chronic pelvic pain in female; Urinary tract infection without hematuria, site unspecified Start: 02-23-2025 End: 02-27-2025 Telephone encounter Merced Hutchinson APRN.SALES MERCHANDISING SPECIALIST Work Phone: [facility] [place] Comment on above: Continued symptoms ( urinary problem and vaginal problem) Start: 02-23-2025 End: 02-23-2025 Emergency department patient visit ETHAN HENDERSON MD [facility] Start: 02-19-2025 End: 02-19-2025 Emergency department patient visit TAMI TRISTAN DO [facility] Start: 02-16-2025 End: 02-17-2025 Telephone encounter Merced Hutchinson APRN.[employer]AL[employer] MERCH[employer]ISING SPECIALIST Work Phone: [facility] [place] Comment on above: Patient Update Start: 02-14-2025 End: 02-14-2025 Emergency department patient visit LARA BELLEGEANT [facility] Start: 02-14-2025 End: 02-14-2025 Patient encounter procedure Merced Hutchinson APRN.[employer]AL[employer] MERCHANDISING SPECIALIST Work Phone: [facility] Comment on above: Acute UTI (Primary D x); BV (bacterial vaginosis); Hemorrhoids, unspecified hemorrhoid type Start: 02-14-2025 End: 02-14-2025 ambulatory SELF Facility:[facility] Start: 02-02-2025 End: 02-02-2025 Emergency department patient visit NIKHIL PENA [facility] Start: 01-19-2025 End: 01-19-2025 Emergency department patient visit CHEKO REVELES [facility] Start: 01-17-2025 End: 02-17-2025 ambulatory Silverio Haley MD Work Phone: [facility] [place] Start: 12-29-2024 End: 12-29-2024 Office outpatient visit 25 minutes Sunny Story MD Work Phone: [facility] Comment on above: Pelvic pain in femal e (Primary Dx) Start: 12-29-2024 End: 12-29-2024 ambulatory SUNNY STORY [facility] Start: 12-27-2024 End: 12-27-2024 Emergency department patient visit Damion Silva DO Work Phone: [facility] Comment on above: Chronic pelvic pain in female (Primary Dx) Start: 12-27-2024 End: 01-04-2025 Telephone encounter Sunny Story MD Work Phone: [facility] Comment on above: Other (Patient state s she was told to go to the ER and she wants Dr. Story to know that she is there for abdominal pain. ); Appointment (See triage 12.27.24) Start: 12-21-2024 End: 12-21-2024 Office outpatient new 30 minutes Sunny Story MD Work Phone: [facility] Comment on above: Pelvic pain (Primary Dx) Start: 12-21-2024 End: 12-21-2024 ambulatory SUNNY STORY [facility] Start: 12-20-2024 End: 12-20-2024 ambulatory Kathy Churchill RN [facility] Clinical Communication Start: 12-20-2024 End: 12-20-2024 Patient encounter procedure [facility] Start: 12-19-2024 End: 12-19-2024 ambulatory August[facility] Start: 12-19-2024 End: 12-19-2024 Patient encounter procedure Augustina Allen [facility] Start: 12-17-2024 End: 12-17-2024 Emergency department patient visit Emiliano White MD Work Phone: [facility] Comment on above: Abdominal pain, unsp ecified abdominal location (Primary Dx) Start: 12-15-2024 End: 12-15-2024 Telephone encounter Sunny Story MD Work Phone: [facility] Comment on above: Appointment (ED FU) Start: 12-15-2024 End: 12-15-2024 Emergency department patient visit Fan Wesley DO Work Phone: [facility] Comment on above: Suprapubic pain (Lynn mckay Dx) Start: 12-14-2024 End: 12-14-2024 ambulatory Alice Cameron RN NURSE [employer] Comment on above: Vaginal Bleeding Start: 12-14-2024 End: 12-14-2024 Patient encounter procedure Renetta Gonzales RN [facility] Clinical Communication Start: 12-12-2024 End: 12-12-2024 Emergency department patient visit Marie Aguiar MD Work Phone: [facility] Comment on above: Chronic pain in fema le pelvis (Primary Dx); Left renal stone; History of endometriosis Start: 12-12-2024 End: 12-12-2024 ambulatory Shakila Rees RN [facility] Clinical Communication Start: 12-12-2024 End: 12-12-2024 Patient encounter procedure Shakila Rees RN [facility] Clinical Communication Start: 12-09-2024 End: 12-13-2024 Telephone encounter Abi KIRKLAND Navigation Start: 12-07-2024 End: 12-07-2024 ambulatory SELF Facility:[facility] Start: 12-07-2024 End: 12-07-2024 Office outpatient visit 25 minutes Silverio Haley MD Work Phone: [facility] [place] Comment on above: Chronic abdominal pa in (Primary Dx); Bilateral low back pain without sciatica,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 Hakael GOLDBERG.SALES MERCHANDISING SPECIALIST Work Phone: [facility] Start: 10-13-2022 End: 10-13-2022 Emergency department patient visit KUN ELLIS MD [facility] Start: 10-12-2022 End: 10-12-2022 Emergency department patient visit ANNE BURROWS MD [facility] Start: 09-15-2022 Telephone encounter Isabel wells PA-C Work Phone: [facility] [place] Comment on above: Green Stool Start: 09-09-2022 Telephone encounter No Pcp [facility] Comment on above: Patient Update; Melyssa ent Request Start: 09-08-2022 End: 09-08-2022 Patient encounter procedure Holly Fraga YARD ENGINEER.SALES MERCHANDISING SPECIALIST Work Phone: [facility] Comment on above: Pain, dental (Primar y Dx) Start: 09-07-2022 End: 09-07-2022 [facility] Start: 08-14-2022 Refill Taylor Sanabria jhonny YARD ENGINEER.SALES MERCHANDISING SPECIALIST Work Phone: Neurology Comment on above: Refill Request Start: 08-12-2022 Telephone encounter Marcelino Albert MD Work Phone: [facility] Comment on above: Patient Update Start: 08-05-2022 Telephone encounter No scruggs APRN.SALES MERCHANDISING SPECIALIST Work Phone: [facility] Comment on above: Medication Question Start: 08-04-2022 End: 08-04-2022 ambulatory No Akers YARD ENGINEER.SALES MERCHANDISING SPECIALIST Work Phone: [facility] Comment on above: Acute cough (Primary Dx) Start: 08-04-2022 End: 08-04-2022 Telemedicine consultation with patient No Akers ASHLYN.SALES MERCHANDISING SPECIALIST Work Phone: [facility] Start: 07-29-2022 Telephone encounter Marcelino Albert MD Work Phone: [facility] Comment on above: cough perisiting/tig htness in chest Start: 07-29-2022 End: 07-29-2022 Emergency department patient visit [facility] Start: 07-22-2022 End: 07-22-2022 ambulatory No Akers YARD ENGINEER.SALES MERCHANDISING SPECIALIST Work Phone: [facility] Comment on above: Upper respiratory in fection with cough and congestion (Primary Dx); Acute cough Start: 07-22-2022 End: 07-22-2022 Telemedicine consultation with patient No Akers ASHLYN.SALES MERCHANDISING SPECIALIST Work Phone: [facility] Start: 07-18-2022 End: 07-18-2022 Patient encounter procedure Nasrin Dunlap PA-C Work Phone: [facility] Comment on above: Sinobronchitis (Prim bryant Dx) Start: 06-30-2022 Telephone encounter Isabel wells PA-C Work Phone: [facility] Comment on above: Results (Vit D resul ts) Start: 06-27-2022 Telephone encounter Isabel Marcela WARE-C Work Phone: [facility] Comment on above: Results Start: 06-26-2022 End: 06-26-2022 Patient encounter procedure Isabel Arias PA-C Work Phone: [facility] Comment on above: Fatigue, unspecified type (Primary Dx); Former smoker; Reactive depression; Generalized anxiety disorder; Impaired fasting glucose; Encounter for screening for cardiovascular disorders Start: 06-18-2022 Telephone encounter Isabel Marcela WARE-C Work Phone: [facility] Comment on above: Opened In Error Start: 06-05-2022 ambulatory Francisco Herrera RN NURSE HYDROPULPER Comment on above: Covid19 Concern; Inf ormation Start: 05-27-2022 End: 05-27-2022 ambulatory No Akers APRN.SALES MERCHANDISING SPECIALIST Work Phone: [facility] Comment on above: Subacute cough (Prim bryant Dx) Start: 05-27-2022 End: 05-27-2022 Telemedicine consultation with patient No Hakael GOLDBERG.SALES MERCHANDISING SPECIALIST Work Phone: [facility] Start: 05-13-2022 End: 05-13-2022 ambulatory No Akers YARD ENGINEER.SALES MERCHANDISING SPECIALIST Work Phone: [facility] Comment on above: COVID-19 (Primary Dx ) Start: 05-13-2022 End: 05-13-2022 Telemedicine consultation with patient No Akers ASHLYN.SALES MERCHANDISING SPECIALIST Work Phone: [facility] Start: 05-13-2022 Telephone encounter Marcelino Albert MD Work Phone: [facility] Comment on above: Appointment Start: 05-12-2022 End: 05-12-2022 Subsequent hospital visit by physician Xr [facility] Work Phone: Radiology Comment on above: Acute cough [R05.1] Start: 05-12-2022 End: 05-12-2022 Patient encounter procedure Marcelino Bess APRN.SALES MERCHANDISING SPECIALIST Work Phone: [facility] Comment on above: Acute cough (Primary Dx) Start: 05-06-2022 Patient Outreach Romelmichael Hanna laguerre LPN [facility] [place] Comment on above: Transition Of Care ( 05/02/22) Start: 05-05-2022 Telephone encounter Isabel WARE-C Work Phone: [facility] Comment on above: Hospital F/U Start: 04-10-2022 End: 04-10-2022 Emergency department patient visit [facility] Start: 04-09-2022 ambulatory Marcelino be MD Work Phone: [facility] [place] Start: 02-06-2022 End: 02-06-2022 Emergency department patient visit MELLO BAUER MD [facility] Start: 01-27-2022 ambulatory Taylor barry APRN.SALES MERCHANDISING SPECIALIST Work Phone: Neurology Comment on above: Medicine Start: 12-24-2021 End: 12-24-2021 ambulatory Isabel WARE-C Work Phone: [facility] Comment on above: Generalized abdomina l pain (Primary Dx) Start: 12-24-2021 End: 12-24-2021 Telemedicine consultation with patient Isabel Hugo WARE-C Work Phone: [facility] Start: 11-22-2021 End: 11-22-2021 Discharged Recurring [facility] Start: 10-04-2021 End: 10-04-2021 Emergency department patient visit [facility] Start: 09-15-2021 End: 09-15-2021 Emergency department patient visit [facility] Start: 09-13-2021 End: 09-13-2021 Emergency department patient visit ANNE BURROWS MD [facility] Start: 08-16-2021 End: 08-16-2021 Emergency department patient visit ANNE BURROWS MD [facility] Start: 07-29-2021 End: 07-29-2021 Subsequent hospital visit by physician Xr [facility] Work Phone: Radiology Comment on above: LRTI (lower respirat ory tract infection) [J22] Start: 06-26-2021 Orders Only Sarah Morrison MD Work Phone: [facility] Comment on above: Arthralgia, unspecif ied joint (Primary Dx); Bilateral chronic knee pain Start: 06-25-2021 End: 06-25-2021 ambulatory PHYSICIAN NO [facility] Amb[facility] Start: 11-19-2020 End: 11-19-2020 Subsequent hospital visit by physician Xr [facility] Work Phone: Radiology Comment on above: Elevated alkaline ph osphatase level [R74.8] Acute pain of right knee [M25.561] Start: 10-07-2019 End: 10-09-2019 Evaluation and management of inpatient Delon Palacios MD Work Phone: [facility] Comment on above: S/P laparotomy (Prim bryant Dx) Start: 09-30-2019 End: 09-30-2019 Subsequent hospital visit by physician Delon Palacios MD Work Phone: [facility] Pre-Admit Testing Comment on above: Arrived Start: 09-15-2019 End: 09-15-2019 Subsequent hospital visit by physician Delon Palacios MD Work Phone: [facility] [address] Comment on above: Pelvic pain in femal e; Pelvic mass in female Start: 09-11-2019 End: 09-11-2019 Emergency department patient visit Rich Johnson DO Work Phone: [facility] Emergency Dept Comment on above: Adnexal mass (Primar y Dx) Start: 09-03-2019 End: 09-05-2019 Evaluation and management of inpatient Raghu Rivers MD Work Phone: [facility] H5 MED SURG Comment on above: Pelvic pain in femal e (Primary Dx) Start: 03-31-2016 Patient encounter status Bradley Arias PA-C Work Phone: [facility] Work Phone: Start: 05-17-2008 End: 02-16-2023 Patient encounter status Silverio Haley MD Work Phone: [facility] Procedures Date Procedure Procedure Detail Performing Clinician Start: 02-24-2025 End: 02-24-2025 Comprehensive metabolic panel Mac adler YARD ENGINEER - SALES MERCHANDISING SPECIALIST Work Phone: Start: 02-24-2025 Bacterial vaginosis and vaginitis rRNA panel - Vaginal fluid by Probe Mac Harding YARD ENGINEER - SALES MERCHANDISING SPECIALIST Work Phone: Start: 02-24-2025 Iadna chlamydia trachomatis amplified probe tq Mac Harding YARD ENGINEER - SALES MERCHANDISING SPECIALIST Work Phone: Start: 02-14-2025 Urinalysis NIKHIL PENA Comment on above: Result Comment: URINALYSIS Performed By: [id number] ####[facility],[address] [place] [address] Start: 02-14-2025 Urnls dip stick/tablet rgnt auto w/o microscopy Merced Hutchinson YARD ENGINEER.SALES MERCHANDISING SPECIALIST Work Phone: Start: 01-19-2025 Urinalysis NIKHIL PENA Comment on above: Result Comment: URINALYSIS Performed By: [id number] ####[facility],[address] [place] [address] Start: 12-29-2024 Follow-up visit Follow-up SUNNY STORY [...] Phone: Start: 12-15-2024 Comprehensive metabolic panel Fan G N esheim DO Work Phone: Start: 12-15-2024 Urinalysis complete panel - Urine Fan G Nesheim DO Work Phone: Start: 12-15-2024 Urnls dip stick/tablet reagent auto microscopy Fan G Nesheim DO Work Phone: Start: 12-12-2024 Us transvaginal Fay Oplinger PA-C Work Phone: Start: 12-12-2024 Ct abdomen & pelvis w/o contrast material Fay Oplinger PA-C Work Phone: Start: 12-12-2024 Comprehensive metabolic panel Fay Torreser PA-C Work Phone: Start: 12-12-2024 Urinalysis complete panel - Urine Madiso jabari Oplinger PA-C Work Phone: Start: 12-12-2024 Urnls dip stick/tablet rgnt auto w/o microscopy Fay Oplinger PA-C Work Phone: Start: 11-15-2024 Urinalysis NIKHIL PENA Comment on above: Result Comment: URINALYSIS Performed By: #### 2 [id number] ####[place] [address] Start: 11-08-2024 Urinalysis NIKHIL PENA Comment on above: Result Comment: URINALYSIS Performed By: #### 2 [id number] ####[place] [address] Start: 11-04-2024 STREP A MOLECULAR (POC) Marcelino guzman YARD ENGINEER.SALES MERCHANDISING SPECIALIST Work Phone: Start: 10-13-2024 STREP A MOLECULAR (POC) Marie Santamaria APRN.SALES MERCHANDISING SPECIALIST Work Phone: Start: 10-04-2024 Computed tomography of abdomen and pelvis with intravenous contrast Dr. Silverio Haley MD Work Phone: Start: 10-04-2024 SARS-CoV-2, Influenza & RSV (PCR) Dr. Genna Haley MD Work Phone: Start: 09-14-2024 Urinalysis NIKHIL PENA Comment on above: Result Comment: URINALYSIS Performed By: #### 2 [id number] ####[facility],[address] [place] [address] Start: 08-21-2024 X-ray of lumbar spine, two or three views Dr. Silverio Haley MD Work Phone: Start: 07-28-2024 Radiologic exam chest 2 views Jonathan Bruce APRN.CNP Work Phone: Start: 07-15-2024 Urinalysis NIKHIL PENA Comment on above: Result Comment: URINALYSIS Performed By: #### 2 [id number] ####[facility],[address] [place] [address] Start: 07-02-2024 Urinalysis NIKHIL PENA Comment on above: Result Comment: URINALYSIS Performed By: #### 2 [id number] ####[facility],[address] [place] [address] Start: 06-09-2024 Urinalysis NIKHIL PENA Comment on above: Result Comment: URINALYSIS Performed By: #### 2 [id number] ####[facility],[address] [place] [address] Start: 06-02-2024 Urinalysis NIKHIL PENA Comment on above: Result Comment: URINALYSIS Performed By: #### 2 [id number] ####[facility],[address] [place] [address] Start: 05-16-2024 Urinalysis NIKHIL PENA Comment on above: Result Comment: URINALYSIS Performed By: #### 2 [id number] ####[facility],[address] [place] [address] Start: 05-14-2024 Urinalysis NIKHIL PENA Comment on above: Result Comment: URINALYSIS Performed By: #### 2 [id number] ####[place] [address] Start: 05-01-2024 Urinalysis NIKHIL PENA Comment on above: Result Comment: URINALYSIS Performed By: #### 2 [id number] ####[place] [address] Start: 03-17-2024 Urinalysis NIKHIL PENA Comment on above: Result Comment: URINALYSIS Performed By: #### 2 [id number] ####[place] [address] Start: 03-12-2024 Urinalysis NIKHIL PENA Comment on above: Result Comment: URINALYSIS Performed By: #### 2 [id number] ####[place] [address] Start: 02-28-2024 Urinalysis NIKHIL PENA Comment on above: Result Comment: URINALYSIS Performed By: #### 2 [id number] ####[place] [address] Start: 02-18-2024 Urinalysis NIKHIL PENA Comment on above: Result Comment: URINALYSIS Performed By: #### 2 [id number] ####[place] [address] Start: 01-16-[address] Silverio Haley Work Phone: Start: 01-15-[address] Silverio Haley Work Phone: Start: 12-26-2023 CT of abdomen and pelvis without contrast Dr. Silverio Haley Work Phone: Start: 12-18-2023 Radionuclide gastric emptying study Dr. Silverio Haley Work Phone: Start: 12-16-2023 Radiologic exam chest 2 views Hollylucia mcpherson YARD ENGINEER.SALES MERCHANDISING SPECIALIST Work Phone: Start: 12-16-2023 STREP A MOLECULAR (POC) [facility] Provider Start: 12-04-[address] Silverio Haley Work Phone: Start: 10-24-2023 Radiologic examination of knee Start: 10-09-2023 Radiologic exam chest 2 views Silverio patel MD Work Phone: Start: 09-10-2023 Radiologic exam chest 2 views Marieomkar pederson YARD ENGINEER.SALES MERCHANDISING SPECIALIST Work Phone: Start: 08-18-2023 Radex hand minimum 3 views Milly Henderson YARD ENGINEER.SALES MERCHANDISING SPECIALIST Work Phone: Start: 07-22-2023 Plain chest X-ray Start: 07-22-2023 CT cervical spine without contrast Start: 07-22-2023 CT of head without contrast Start: 07-22-2023 SARS-CoV-2 & FLU Antigen (Rapid) Start: 07-22-2023 Viral antigen assay Start: 06-11-2023 Plain chest X-ray Start: 04-01-2023 CT of abdomen and pelvis without contrast Start: 03-09-2023 Radiologic exam chest 2 views Yumiko WARE Work Phone: Start: 02-16-2023 Lipid 1996 panel - Serum or Plasma Silverio Haley [...] 05-12-2022 Radiologic exam chest 2 views Marcelino Quinn garcía YARD ENGINEER.SALES MERCHANDISING SPECIALIST Work Phone: Start: 04-10-2022 CT of abdomen and pelvis without contrast Start: 10-04-2021 Plain chest X-ray Start: 10-04-2021 SARS-CoV-2 Antigen (Rapid) Start: 07-29-2021 Radiologic exam chest 2 views Shantell waldrop PA-C Work Phone: Start: 11-19-2020 Radiologic examination femur [...] Phone: Comment on above: Test Performed by [employer] [facility], [address] [place] [id number] Start: 10-07-2019 Blood typing serologic abo Alessandro Oliver Work Phone: Start: 09-15-2019 Gonadotropin follicle stimulating hormone Delon Palacios MD Work Phone: Start: 09-11-2019 Us transvaginal Valerie Gee YARD ENGINEER - SALES MERCHANDISING SPECIALIST Work Phone: Start: 09-05-2019 OPERATIVE REPORT 3m [...] above: Does not meet criteria for Lupus anticoa gulant Plan of Treatment Date Care Activity Detail Author Start: 2054 RSV Immunization for Adults (1 - 1-dose 75+ series) RSV Immunization for Adults (1 - 1-dose 75+ series) [facility] Start: 2044 Pneumococcal Vaccine: Ped or At-Risk (2 of 2 - PPSV23) Pneumococcal Vaccine: Ped or At-Risk (2 of 2 - PPSV23) [facility] Start: 2029 Zoster Vaccines (1 of 2) Zoster Vaccines (1 of 2) [facility] Start: 02-25-2028 Diabetes Screening Diabetes Screening [facility] Start: 02-17-2028 Lipid panel Lipid Screening [facility] Start: 12-18-2027 Diabetes Screening Diabetes Screening [facility] Start: 12-16-2027 Diabetes Screening Diabetes Screening [facility] Start: 06-26-2027 Lipid panel Lipid Panel [facility] Start: 03-30-2026 Diabetes Screening Diabetes Screening [facility] Start: 02-16-2026 Diabetes mellitus screening Diabetes Screening [facility] Start: 02-14-2026 Annual PCP Team Chronic Disease Visit Annual PCP Team Chronic Disease Visit [facility] Start: 12-07-2025 Annual PCP Team Chronic Disease Visit Annual PCP Team Chronic Disease Visit [facility] Start: 11-30-2025 Annual PCP Team Chronic Disease Visit Annual PCP Team Chronic Disease Visit [facility] Start: 11-17-2025 Annual PCP Team Chronic Disease Visit Annual PCP Team Chronic Disease Visit [facility] Start: 10-27-2025 Annual PCP Team Chronic Disease Visit Annual PCP Team Chronic Disease Visit [facility] Start: 10-18-2025 Annual PCP Team Chronic Disease Visit Annual PCP Team Chronic Disease Visit [facility] Start: 10-03-2025 Annual PCP Team Chronic Disease Visit Annual PCP Team Chronic Disease Visit [facility] Start: 10-03-2025 Covid-19 Vaccine ( season) Covid-19 Vaccine () [facility] Comment on above: Postponed from 05/15/2024 (Declined at t his time) Start: 09-21-2025 Annual PCP Team Chronic Disease Visit Annual PCP Team Chronic Disease Visit [facility] Start: 07-20-2025 Annual PCP Team Chronic Disease Visit Annual PCP Team Chronic Disease Visit [facility] Start: 07-11-2025 Annual PCP Team Chronic Disease Visit Annual PCP Team Chronic Disease Visit [facility] Start: 06-21-2025 Annual PCP Team Chronic Disease Visit Annual PCP Team Chronic Disease Visit [facility] Start: 05-28-2025 DTaP/Tdap/Td vaccine (2 - Td) DTaP/Tdap/Td vaccine (2 - Td) [facility] Work Phone: Start: 05-28-2025 DTaP/Tdap/Td Vaccines (2 - Td or Tdap) DTaP/Tdap/Td Vaccines (2 - Td or Tdap) [facility] Start: 05-28-2025 Tetanus vaccination Tetanus: Every 10yrs [facility] Start: 05-28-2025 Urine microalbumin profile [facility] Start: 05-15-2025 Influenza vaccination [facility] Start: 05-15-2025 [facility] Start: 05-08-2025 Colonoscopy COLONOSCOPY [facility] Start: 05-08-2025 COLORECTAL CANCER SCREENING COLORECTAL CANCER SCREENING [facility] Start: 05-08-2025 Screening for malignant neoplasm of colon [facility] Start: 03-13-2025 Influenza vaccination Influenza Vaccine (#1) [facility] Comment on above: Postponed from 05/15/2024 (Declined at t his time) Start: 01-30-2025 End: 01-30-2025 Patient encounter procedure 01/30/2025 1:00 PM EDT Office Visit [facility] Ob[facility]etrics and Gyne[facility] - [place] [address] [facility] [address] [place] [address] Sunny Story MD [address] [place] [address] [facility] Start: 12-29-2024 End: 12-29-2024 Patient encounter procedure 12/29/2024 2:45 PM EDT Office Visit [facility] Ob[facility]etrics [facility] Gynecology [facility] [address] [place] [phone] Sunny Story MD [address] [place] [address] [facility] Start: 12-27-2024 End: 12-27-2024 Patient encounter procedure 12/27/2024 11:00 AM EDT Office Visit [facility] [address] [place] [phone] Shelli Espinal PA-C [address] [place] [address] [facility] Start: 12-21-2024 End: 12-21-2024 Patient encounter procedure 12/21/2024 12:30 PM EDT Office Visit [facility] Ob[facility]s and [facility] [address] [place] [phone] Sunny Story MD [address] [place] [address] [facility] [place] Start: 11-25-2024 End: 11-25-2024 Patient encounter procedure Internal Med [facility] Comment on above: 4 wk follow up - headaches Start: 11-17-2024 [facility] Start: 11-17-2024 End: 02-16-2025 CBC panel - Blood by Automated count COMPLETE BLOOD COUNT Lab Routine Tremor Expected: 11/17/2024, Expires: 02/16/2025 [facility] Work Phone: Comment on above: Expected: 11/17/2024, Expires: Start: 11-17-2024 End: 02-16-2025 Cobalamin (Vitamin B12) [Mass/volume] in Serum or Plasma VITAMIN B12 Lab Routine Tremor Expected: 11/17/2024, Expires: 02/16/[address] [facility] Comment on above: Expected: 11/17/2024, Expires: Start: 11-17-2024 End: 02-16-2025 Comprehensive metabolic 2000 panel - Serum or Plasma COMPREHENSIVE METABOLIC PANEL Lab Routine Tremor Expected: 11/17/2024, Expires: 02/16/[address] [facility] Comment on above: Expected: 11/17/2024, Expires: Start: 11-17-2024 End: 02-16-2025 Ferritin [Mass/volume] in Serum or Plasma FERRITIN Lab Routine Tremor Expected: 11/17/2024, Expires: 02/16/[address] [facility] Comment on above: Expected: 11/17/2024, Expires: Start: 11-17-2024 End: 02-16-2025 Thyrotropin [Units/volume] in Serum or Plasma THYROID STIMULATING HORMONE Lab Routine Tremor Expected: 11/17/2024, Expires: 02/16/[address] [facility] Comment on above: Expected: 11/17/2024, Expires: Start: 10-04-2024 [facility] Start: 2024 Screening for malignant neoplasm of colon [facility] Start: 08-21-2024 [facility] Start: 06-10-2024 End: 06-10-2024 Patient encounter procedure 06/10/2024 10:40 AM EDT Office Visit [facility] [address] [place] [address] Silverio Haley MD [address] [place] [address] right leg edema, painful when walking, Patient [...] COVID-19 Vaccine ( season) COVID-19 Vaccine () [facility] Start: 05-15-2024 Covid-19 Vaccine ( season) Covid-19 Vaccine () [facility] Start: 05-15-2024 Influenza vaccination Influenza Vaccine (#1) [facility] Start: 05-04-2024 End: 05-04-2024 Follow-up encounter 05/04/2024 8:00 AM EDT [facility] [address] [place] [address] Silverio Haley MD [address] [place] [address] virtual visit per LT 5 day follow up [facility] Comment on above: virtual visit per LT 5 day follow up Start: 03-12-2024 End: 03-12-2024 Follow-up encounter 03/12/2024 9:40 AM EDT [facility] [address] [place], [place] [id number] Silverio Haley MD [address] [place], [place] [address] 2 month follow up [facility] Comment on above: 2 month follow up Start: 03-04-2024 End: 03-04-2024 Follow-up encounter 03/04/2024 10:00 AM EDT [facility] [address] [place] [address] Silverio Haley MD [address] [place], [place] [address] 2 month follow up [facility] Comment on above: 2 month follow up Start: 01-20-2024 COVID-19 VACCINE (3 - Booster for Lauren series) COVID-19 VACCINE (3 - Booster for Lauren series) [facility] Comment on above: Postponed from 11/21/2021 (Declined at t his time) Start: 01-19-2024 End: 01-19-2024 ambulatory 01/19/2024 9:40 AM EDT [facility] [place] [address] [place] [address] Gretchen Newton APRN.PROVIDER ENGAGEMENT EXECUTIVE [address] [place] [address] [facility] FU 5-4-24 abdominal pain dx with UTI( See phone encounter) [facility] [place] Comment on above: [facility] FU 5-4-24 abdominal pain dx with UTI ( See phone encounter) Start: 01-16-2024 End: 01-16-2024 [facility] Start: 01-15-[address] [facility] Start: 01-15-2024 Screening for malignant neoplasm of breast [facility] Start: 01-15-2024 Antibody to gastric parietal cell measurement [facility] Start: 01-15-2024 Cancer antigen 19-9 measurement [facility] Start: 01-15-2024 Catecholamines [Moles/volume] in Plasma [facility] Start: 01-15-2024 Celiac disease screen [facility] Start: 01-15-2024 Gastrin [Mass/volume] in Serum or Plasma [facility] Start: 01-15-2024 IgG subclass panel [Mass/volume] - Serum [facility] Start: 01-15-2024 In-vitro immunologic test [facility] Start: 01-15-2024 Lupus anticoagulant assay [facility] Start: 01-15-2024 Procedure [facility] Start: 01-15-2024 [facility] Start: 12-09-2023 [facility] Start: 12-04-2023 Patient discharge [facility] Start: 12-04-2023 Magnetic resonance cholangiopancreatography MRCP Abdomen without Contrast [facility] Start: 12-04-2023 MR Biliary ducts and Pancreatic duct WO contrast [facility] Start: 12-04-2023 Serum immunofixation [facility] Start: 12-04-2023 [facility] Start: 12-04-2023 Application of intermittent pneumatic compression device [facility] Start: 12-03-2023 Ambulation without limitation [facility] Start: 12-03-2023 Assessment of risk of venous thromboembolism [facility] Start: 12-03-2023 Insertion of catheter into peripheral vein [facility] Start: 12-03-2023 Oxygen therapy [facility] Start: 12-03-2023 Patient referral to dietitian [facility] Start: 12-03-2023 Providing care according to standard [facility] Start: 12-03-2023 Referral to gastroenterology service [facility] Start: 12-03-2023 [facility] Start: 12-03-2023 Following clinical pathway protocol [facility] Start: 12-03-2023 Hospital admission, emergency, from emergency room, medical nature [facility] Start: 12-03-2023 Verification routine [facility] Start: 12-03-2023 Admission procedure [facility] Start: 10-24-2023 [facility] Start: 09-20-2023 [facility] Start: 07-22-2023 [facility] Start: 06-17-2023 End: 06-17-2023 Patient encounter procedure 06/17/2023 9:00 AM EDT Office Visit [facility] [address] [place] [phone] Sunny Story MD [address] [place] [address] [facility] Start: 06-11-2023 [facility] Start: 05-25-2023 End: 05-25-2023 Patient encounter procedure 05/25/2023 11:00 AM EDT Office Visit [facility] [address] [place] [phone] Sunny Story MD [address] [place] [address] [facility] Start: 05-15-2023 Influenza vaccination [facility] Start: 03-30-2023 End: 05-30-2023 Amylase [Enzymatic activity/volume] in Serum or Plasma [facility] Work Phone: Comment on above: Expected: 03/30/2023, Expires: 3 Start: 03-30-2023 End: 05-30-2023 KRISTI BY IFA SCREEN [facility] Work Phone: Comment on above: Expected: 03/30/2023, Expires: 3 Start: 03-30-2023 End: 05-30-2023 Basic metabolic 2000 panel - Serum or Plasma [facility] Work Phone: Comment on above: Expected: 03/30/2023, Expires: 3 Start: 03-30-2023 End: 05-30-2023 C reactive protein [Mass/volume] in Serum or Plasma [facility] Work Phone: Comment on above: Expected: 03/30/2023, Expires: 3 Start: 03-30-2023 End: 05-30-2023 CELIAC SCREEN WITH REFLEX [facility] Work Phone: Comment on above: Expected: 03/30/2023, Expires: 3 Start: 03-30-2023 End: 05-30-2023 Erythrocyte sedimentation rate [facility] Work Phone: Comment on above: Expected: 03/30/2023, Expires: 3 Start: 03-30-2023 End: 05-30-2023 Hepatic function 2000 panel - Serum or Plasma [facility] Work Phone: Comment on above: Expected: 03/30/2023, Expires: 3 Start: 03-11-2023 End: 05-11-2023 Amylase [Enzymatic activity/volume] in Serum or Plasma [facility] Work Phone: Comment on above: Expected: 03/11/2023, Expires: 3 Start: 03-11-2023 End: 05-11-2023 Comprehensive metabolic 2000 panel - Serum or Plasma [facility] Work Phone: Comment on above: Expected: 03/11/2023, Expires: 3 Start: 03-11-2023 End: 05-11-2023 Lipase [Enzymatic activity/volume] in Serum or Plasma [facility] Work Phone: Comment on above: Expected: 03/11/2023, Expires: 3 Start: 02-16-2023 End: 04-18-2023 Hemoglobin A1c in Blood [facility] Work Phone: Comment on above: Expected: 02/16/2023, Expires: 3 Start: 09-30-2022 End: 11-30-2022 25-hydroxyvitamin D3 [Mass/volume] in Serum or Plasma VITAMIN D 25 HYDROXY Lab Routine Vitamin D deficiency Expected: 09/30/2022, Expires: 11/30/2022 [facility] Work Phone: Comment on above: Expected: 09/30/2022, Expires: 3 Start: 09-30-2022 End: 11-30-2022 Cobalamin (Vitamin B12) [Mass/volume] in Serum or Plasma VITAMIN B12 BLOOD Lab Routine Vitamin B12 deficiency Expected: 09/30/2022, Expires: 11/30/2022 [facility] Work Phone: Comment on above: Expected: 09/30/2022, Expires: 3 Start: 07-29-2022 [facility] Start: 06-26-2022 End: 08-26-2022 25-hydroxyvitamin D3 [Mass/volume] in Serum or Plasma [facility] Work Phone: Comment on above: Expected: 06/26/2022, Expires: 2 Start: 06-26-2022 End: 08-26-2022 CBC W Auto Differential panel - Blood [facility] Work Phone: Comment on above: Expected: 06/26/2022, Expires: 2 Start: 06-26-2022 End: 12-13-2022 Cobalamin (Vitamin B12) [Mass/volume] in Serum or Plasma [facility] Work Phone: Comment on above: Expected: 06/26/2022, Expires: 2 Start: 06-26-2022 End: 08-26-2022 Comprehensive metabolic 2000 panel - Serum or Plasma [facility] Work Phone: Comment on above: Expected: 06/26/2022, Expires: 2 Start: 06-26-2022 End: 08-26-2022 Folate [Mass/volume] in Serum or Plasma [facility] Work Phone: Comment on above: Expected: 06/26/2022, Expires: 2 Start: 06-26-2022 End: 08-26-2022 Hemoglobin A1c in Blood [facility] Work Phone: Comment on above: Expected: 06/26/2022, Expires: 2 Start: 06-26-2022 End: 08-26-2022 Iron and Iron binding capacity panel - Serum or Plasma [facility] Work Phone: Comment on above: Expected: 06/26/2022, Expires: 2 Start: 06-26-2022 End: 08-26-2022 LIPID PANEL, NONFASTING [facility] Work Phone: Comment on above: Expected: 06/26/2022, Expires: 2 Start: 06-26-2022 End: 08-26-2022 Thyrotropin [Units/volume] in Serum or Plasma [facility] Work Phone: Comment on above: Expected: 06/26/2022, Expires: 2 Start: 06-26-2022 End: 08-26-2022 Thyroxine (T4) free [Mass/volume] in Serum or Plasma [facility] Work Phone: Comment on above: Expected: 06/26/2022, Expires: 2 Start: 05-15-2022 Influenza vaccination INFLUENZA (#1) [facility] Start: 11-21-2021 COVID-19 VACCINE (3 - Booster for Lauren series) COVID-19 VACCINE (3 - Booster for Lauren series) 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 General Surgery Start: 10-06-2019 End: 10-06-2019 Patient encounter procedure 10/06/2019 Office Visit Urology Vitor Barragan, YARD ENGINEER - SALES MERCHANDISING SPECIALIST [address] [place] [address] [phone] [facility] [place] Start: 10-03-2019 End: 10-03-2019 Evaluation and management of inpatient 10/03/2019 Office Visit Urology Vitor Barragan, YARD ENGINEER - SALES MERCHANDISING SPECIALIST [address] [place] [address] [phone] [employer] [place] Start: 09-30-2019 End: 09-30-2019 Patient encounter procedure 09/30/2019 Appointment Pre-Admission Testing Delon Palacios MD [address] [facility] [place] [address] [phone] [facility] Pre-Admit Testing Start: 09-21-2019 End: 09-21-2019 Patient encounter procedure 09/21/2019 Office Visit Obstetrics and Gynecology Sunny Story MD [address] [place] [address] [phone] [facility] Start: 2019 Lipid screen Lipid screen [facility] Work Phone: Start: 2019 Mammography MAMMOGRAM [facility] Start: 2019 Screening for malignant neoplasm of breast Mammogram [facility] Start: 05-19-2018 PNEUMOCOCCAL (2 - PCV) PNEUMOCOCCAL (2 - PCV) [facility] Start: 05-19-2018 Pneumococcal vaccination [facility] Start: 05-19-2018 Pneumococcal Vaccine: Pediatrics (0 to 5 Years) and At-Risk Patients (6 to 49 Years) (2 of 2 - PCV) Pneumococcal Vaccine: Pediatrics (0 to 5 Years) and At-Risk Patients (6 to 49 Years) (2 of 2 - PCV) [facility] Start: 05-19-2018 Pneumococcal Vaccine: Pediatrics (0 to 5 Years) and At-Risk Patients (6 to 64 Years) (2 - PCV) Pneumococcal Vaccine: Pediatrics (0 to 5 Years) and At-Risk Patients (6 to 64 Years) (2 - PCV) [facility] Start: 2009 Screening for malignant neoplasm of cervix [facility] Start: 2006 HPV Vaccine (1 - 3-dose SCDM series) HPV Vaccine (1 - 3-dose SCDM series) [facility] Start: 2000 Cervical cancer screen Cervical cancer screen [facility] Work Phone: Start: 2000 Screening for malignant neoplasm of cervix Pap Smear [facility] Start: 1998 Hepatitis A Vaccines (1 of 2 - Risk 2-dose series) Hepatitis A Vaccines (1 of 2 - Risk 2-dose series) [facility] Start: 1998 Hepatitis B Vaccine (1 of 3 - 19+ 3-dose series) Hepatitis B Vaccine (1 of 3 - 19+ 3-dose series) [facility] Start: 1998 Hepatitis B Vaccines (1 of 3 - 19+ 3-dose series) Hepatitis B Vaccines (1 of 3 - 19+ 3-dose series) [facility] Start: 1997 Diabetes mellitus screening Diabetes Screening [facility] Start: 1997 Hepatitis C screening Hepatitis C Screening [facility] Start: 1997 HEPATITIS C SCREENING HEPATITIS C SCREENING [facility] Start: 1997 HIV SCREENING HIV SCREENING [facility] Start: 1997 Spirometry Spirometry [facility] Start: 1994 HIV screen HIV screen [facility] Work Phone: Start: 1994 HIV screening HIV Screening [facility] Start: 1991 Depression Monitoring Depression Monitoring [facility] Start: 1991 Depression screening using PHQ-9 (Patient Health Questionnaire 9) score [facility] Start: 1982 History and physical examination, annual for health maintenance Wellness Visit [facility] Start: 1980 MMR Vaccines (1 of 1 - Standard series) MMR Vaccines (1 of 1 - Standard series) [facility] Start: 1979 HEPATITIS B (1 of 3 - 3-dose series) HEPATITIS B (1 of 3 - 3-dose series) [facility] Start: 1979 Hepatitis B Vaccine (1 of 3 - 3-dose series) Hepatitis B Vaccine (1 of 3 - 3-dose series) [facility] Start: 1979 Hepatitis B Vaccines (1 of 3 - 3-dose series) Hepatitis B Vaccines (1 of 3 - 3-dose series) [facility] Start: 1979 HIV screening HIV Screening [facility] Start: 1979 Lipid panel Lipid Panel [facility] Start: 1979 Screening for malignant neoplasm of cervix Pap Smear [facility] Start: 1979 Screening for malignant neoplasm of colon [facility] Albumin [Moles/volum e] in Serum or Plasma [facility] Albumin/Globulin ratio [facility] Amphetamine [Mass/vo lume] in Urine [facility] Antibody to lupus La protein measurement [facility] Antibody to SS-A measurement [facility] Bacteria identified in Urine by Culture [facility] End: 02-24-2025 Bacteria identified in Urine by Culture [facility] Work Phone: Comment on above: Once (Lab) for 1 Occurrences starting until 02/24/2025 Bacteria identified in Urine by Culture BACTERIAL CULTURE, URINE Microbiology Routine Acute UTI 02/14/2025 11:21 AM EDT [facility] End: 09-07-2019 Basic metabolic 2000 panel - Serum or Plasma Basic Metabolic Panel Lab Routine Daily for 3 Days starting 09/05/2019 until 09/07/2019, 1 completed [facility] Work Phone: Comment on above: Daily for 3 Days starting 09/05/2019 unt il 09/07/2019, 1 completed Beef IgE Ab [Units/v olume] in Serum [facility] Benzodiazepine measu rement, urine [facility] End: 09-07-2019 CBC W Auto Differential panel - Blood CBC Auto Differential Lab Routine Daily for 3 Days starting 09/05/2019 until 09/07/2019, 1 completed [facility] Work Phone: Comment on above: Daily for 3 Days starting 09/05/2019 unt il 09/07/2019, 1 completed Centromere protein B Ab [Units/volume] in Serum [facility] Chocolate IgE Ab [Un its/volume] in Serum [facility] Chromatin Ab [Units/ volume] in Serum or Plasma [facility] Cocaine measurement, urine [facility] Codfish IgE Ab [Unit s/volume] in Serum [facility] Steuben IgE Ab [Units/v olume] in Serum [facility] Cow milk IgE Ab [Uni ts/volume] in Serum [facility] End: 02-16-2026 DBT Breast - bilateral screening SOPHIE SCREENING W [facility] Radiology Routine Encounter for screening mammogram for breast cancer 1 Occurrences starting 01/17/2025 until 02/16/2026 [facility] Work Phone: Comment on above: 1 Occurrences starting 01/17/2025 until 02/16/2026 DNA double strand Ab [Units/volume] in Serum [facility] DOPamine [Mass/volum e] in Serum or Plasma [facility] End: 10-03-2025 Echocardiography ECHO Cardiology Routine Pericardial effusion LARSON (dyspnea on exertion) 1 Occurrences starting 10/03/2024 until 10/03/2025 [facility] Work Phone: Comment on above: 1 Occurrences starting 10/03/2024 until 10/03/2025 Elastase.pancreatic [Presence] in Stool [facility] Electrophoresis: [id number] [facility] Electrophoresis: gamma globulin [facility] End: 11-17-2025 EMG(NEURO/NI) EMG(NEURO/NI) EMG Routine Tremor 1 Occurrences starting 11/17/2024 until 11/17/[address] [facility] Comment on above: 1 Occurrences starting 11/17/2024 until 11/17/2025 EPINEPHrine [Mass/vo lume] in Plasma [facility] End: 09-05-2019 FL Retrograde Pyelogram W WO Kub FL Retrograde Pyelogram W WO Kub Imaging Routine Once for 1 Occurrences starting 09/05/2019 until 09/05/2019 [facility] Work Phone: Comment on above: Once for 1 Occurrences starting 09/05/20 19 until 09/05/2019 FL Retrograde Pyelogram W WO Kub FL Retrograde Pyelogram W WO Kub Imaging Routine 09/05/2019 7:35 AM EST [employer] Work Phone: Gastrin [Mass/volume ] in Serum or Plasma [facility] Gastrointestinal pat hogens panel - Stool by ABRAM with probe detection [facility] Giardia lamblia Ag [ Presence] in Stool by Immunoassay [facility] Gliadin peptide IgA Ab [Units/volume] in Serum [facility] Gliadin peptide IgG Ab [Units/volume] in Serum [facility] Globulin measurement [facility] Helicobacter pylori Ag [Presence] in Stool by Immunoassay H PYLORI AG BY EIA,STOOL Microbiology Routine Intractable nausea and vomiting Right sided abdominal pain Ordered: 03/30/2023 [facility] Work Phone: Comment on above: Ordered: 03/30/2023 IgA [Mass/volume] in Serum or Plasma [facility] IgA [Mass/volume] in Serum or Plasma [facility] IgE [Units/volume] i n Serum or Plasma [facility] IgG [Mass/volume] in Serum or Plasma [facility] IgG [Mass/volume] in Serum or Plasma [facility] IgG subclass 1 [Mass /volume] in Serum [facility] IgG subclass 1 [Mass /volume] in Serum [facility] IgG subclass 2 [Mass /volume] in Serum [facility] IgG subclass 2 [Mass /volume] in Serum [facility] IgG subclass 3 [Mass /volume] in Serum [facility] IgG subclass 3 [Mass /volume] in Serum [facility] IgG subclass 4 [Mass /volume] in Serum [facility] IgG subclass 4 [Mass /volume] in Serum [facility] IgM [Mass/volume] in Serum or Plasma [facility] Incentive spirometry Incentive s pirometry Respiratory Care Routine Every 2hr while awake until discontinued starting 10/07/2019 [employer] Work Phone: Comment on above: Every 2hr while awake until discontinued starting 10/07/2019 Influenza virus A an d B RNA and SARS-CoV-2 (COVID-19) N gene panel - Respiratory specimen by ABRAM with probe detection COVID & INFLUENZA A/B NAAT, ROUTINE Microbiology Routine Viral URI with cough 08/12/2023 5:34 PM EST [facility] Work Phone: Initiate Oxygen Therapy Protocol [facility] Work Phone: Comment on above: Daily until discontinued starting 2018 Daily until disconti nued starting 10/07/2019 Luz-1 extractable nuc lear Ab [Units/volume] in Serum [facility] End: 08-19-2025 LUNG VOLUMES LUNG VOLUMES PFT Routine Subacute cough Acute asthmatic bronchitis 1 Occurrences starting 07/20/2024 until 08/19/[address] [facility] Comment on above: 1 Occurrences starting 07/20/2024 until 08/19/2025 Lupus anticoagulant screening test [facility] Measurement of 3,4-methylenedioxymethamphetamin e in urine [facility] Measurement of immun oglobulin A in serum specimen [facility] Methadone measurement, urine [facility] End: 03-18-2025 MG Breast Screening SOPHIE SCREENING Radiology Routine Encounter for screening mammogram for breast cancer 1 Occurrences starting 02/17/2024 until 03/18/2025 [facility] Work Phone: Comment on above: 1 Occurrences starting 02/17/2024 until 03/18/2025 Microscopic urinalysis [facility] Mycobacterium tuberc ulosis tuberculin stimulated gamma interferon [Presence] in Blood [facility] End: 12-17-2024 Neisseria gonorrhoeae DNA [Presence] in Cervical mucus [facility] Comment on above: Once (Lab) for 1 Occurrences starting until 12/17/2024 Neutrophil cytoplasm ic Ab.classic [Units/volume] in Serum [facility] End: 08-19-2025 NITRIC OXIDE, EXHALED NITRIC OXIDE, EXHALED PFT Routine Subacute cough Acute asthmatic bronchitis 1 Occurrences starting 07/20/2024 until 08/19/[address] [facility] Comment on above: 1 Occurrences starting 07/20/2024 until 08/19/2025 End: 01-12-2025 NM Stomach Views for gastric emptying liquid phase W radionuclide PO NM GASTRIC EMPTYING LIQUID Radiology Routine Intractable nausea and vomiting Nausea 1 Occurrences starting 12/14/2023 until 01/12/2025 [facility] Work Phone: Comment on above: 1 Occurrences starting 12/14/2023 until 01/12/2025 Organism count, micr oscopic method [facility] P-ANCA measurement [facility] Partial thromboplast in time ratio [facility] Patient Education [facility] Work Phone: Patient referral [facility] Work Phone: Peanut IgE Ab [Units /volume] in Serum [facility] pH of Urine [facility] Phencyclidine [Prese nce] in Urine [facility] Plasma norepinephrin e measurement [facility] Pork IgE Ab [Units/v olume] in Serum [facility] Protein electrophore sis panel - Serum or Plasma [facility] Protein measurement [facility] End: 08-21-2023 Radiologic exam chest 2 views XR CHEST 2V FRONTAL/LAT Radiology Routine Acute cough 1 Occurrences starting 07/22/2022 until 08/21/2023 [facility] Work Phone: Comment on above: 1 Occurrences starting 07/22/2022 until 08/21/2023 LEVI MAKER antibody measurement [facility] [place] IgE Ab [Units /volume] in Serum [facility] SCL-70 extractable n uclear Ab [Units/volume] in Serum by Immunoassay [facility] End: 05-09-2023 Screening mammography bi 2-view breast inc cad SOPHIE SCREENING Radiology Routine Encounter for screening mammogram for breast cancer 1 Occurrences starting 04/09/2022 until 05/09/2023 [facility] Work Phone: Comment on above: 1 Occurrences starting 04/09/2022 until 05/09/2023 Shrimp IgE Ab [Units /volume] in Serum [facility] Rosales extractable nu clear Ab [Presence] in Serum [facility] Soybean IgE Ab [Unit s/volume] in Serum [facility] End: 08-19-2025 SPIROMETRY - BASELINE AND POST DILATOR SPIROMETRY - BASELINE AND POST DILATOR PFT Routine Subacute cough Acute asthmatic bronchitis 1 Occurrences starting 07/20/2024 until 08/19/2025 [facility] Work Phone: Comment on above: 1 Occurrences starting 07/20/2024 until 08/19/2025 End: 10-07-2019 Surgical Pathology Surgical Pathology Lab Routine Once for 1 Occurrences starting 10/07/2019 until 10/07/2019 [facility] Work Phone: Comment on above: Once for 1 Occurrences starting 10/07/19 until 10/07/2019 Surgical Pathology Surgical Path ology Lab Routine 10/07/2019 9:44 AM EST [facility] Work Phone: Thrombin time [facility] Tissue transglutamin ase IgA Ab [Units/volume] in Serum [facility] Tissue transglutamin ase IgA Ab [Units/volume] in Serum [facility] Tuna IgE Ab [Units/v olume] in Serum [facility] UA DIP B/O UA DIP B/O Lab Routine Acute UTI Ordered: 02/14/2025 [facility] Work Phone: Comment on above: Ordered: 02/14/2025 Urine barbiturate measurement [facility] Urine cannabinoid measurement [facility] Urine microscopy: ep ithelial cells [facility] Urine microscopy: red cells [facility] Urine opiate measurement [facility] End: 04-09-2024 US ABD RIGHT UPPER QUADRANT US ABD RIGHT UPPER QUADRANT Radiology Routine Acute pancreatitis without infection or necrosis, unspecified pancreatitis type 1 Occurrences starting 03/11/2023 until 04/09/2024 [facility] Work Phone: Comment on above: 1 Occurrences starting 03/11/2023 until 04/09/2024 End: 06-10-2024 US KIDNEY/BLADDER US KIDNEY/BLADDER Radiology Routine Generalized abdominal pain Hydroureter on left History of kidney stones 1 Occurrences starting 05/12/2023 until 06/10/2024 [facility] Work Phone: Comment on above: 1 Occurrences starting 05/12/2023 until 06/10/2024 Wheat IgE Ab [Units/ volume] in Serum [facility] White blood cell count [facility] Whole Egg IgE Ab [Un its/volume] in Serum [facility] End: 07-10-2025 XR Ankle - left AP and Lateral and oblique XR ANKLE GENERAL 3V AP/LAT/OBL LEFT Radiology Routine Acute left ankle pain Localized swelling, mass and lump, left lower limb 1 Occurrences starting 06/10/2024 until 07/10/2025 [facility] Work Phone: Comment on above: 1 Occurrences starting 06/10/2024 until 07/10/2025 End: 05-01-2025 XR Chest PA and Lateral XR CHEST 2V FRONTAL/LAT Radiology STAT Acute cough 1 Occurrences starting 04/01/2024 until 05/01/2025 [facility] Work Phone: Comment on above: 1 Occurrences starting 04/01/2024 until 05/01/2025 End: 08-19-2025 XR Chest PA and Lateral XR CHEST 2V FRONTAL/LAT Radiology Routine Subacute cough Acute asthmatic bronchitis 1 Occurrences starting 07/20/2024 until 08/19/[address] [facility] Comment on above: 1 Occurrences starting 07/20/2024 until 08/19/2025 End: 12-30-2025 XR Knee - right AP and Lateral XR KNEE LIMITED 2V AP/LAT RIGHT Radiology Routine Chronic pain of right knee Locking of right knee 1 Occurrences starting 11/30/2024 until 12/30/2025 [facility] Work Phone: Comment on above: 1 Occurrences starting 11/30/2024 until 12/30/2025 [facility] Immunizations Immunization Date Immunization Notes Care Provider Lisy pichardo 06-16-2023 influenza, injectabl e, quadrivalent, preservative free Silverio Haley MD Work Phone: [facility] 06-16-2023 influenza virus vacc ine, unspecified formulation Marcelino Bess YARD ENGINEER.[facility] Work Phone: [facility] 05-30-2022 influenza, injectabl e, quadrivalent, preservative free No Pcp [facility] Work Phone: 05-30-2022 influenza virus vacc ine, unspecified formulation Megan Ardon [facility] 08-05-2021 influenza, injectabl e, quadrivalent, preservative free Isabel Arias PA-C Work Phone: [facility] Work Phone: 01-15-2021 COVID-19 vaccine (LAUREN) Isabel Arias PA-C Work Phone: [facility] Work Phone: 05-11-2020 influenza, seasonal, injectable Isabel Arias PA-C Work Phone: [facility] 05-31-2019 influenza, seasonal, injectable Isabel Arias PA-C Work Phone: [facility] 05-19-2017 pneumococcal polysaccharide vaccine, 23 valent Isabel Arias PA-C Work Phone: [facility] 06-14-2016 influenza virus vacc ine, unspecified formulation ANNE BURROWS MD [facility] 05-28-2015 tetanus toxoid, redu cierra diphtheria toxoid, and acellular pertussis vaccine, adsorbed Isabel Arias PA-C Work Phone: [facility] Work Phone: Payers Date Payer Category Payer Unknown [id number] 2025 Private Health Insurance JESSICA SHULTZ [id number] 2024 Self-pay [id number] 2023 Government (not [facility] care or Medicaid) [employer] [id number] 2023 Unknown [id number] .[id number] 2019 Medicaid [id number] 2019 Unknown [id number] .[id number] 2016 Unknown [id number] 2015 Unknown [facility] HEALTH [facility]AN [facility] xxxxxxxxxxxx 2015-Present [phone] [address] [place] [address] xxxxxxxxxxxx [id number] .[id number] 1979 Unknown [id number] 2.16.840.1.152307.3.579.2 .903 1979 Unknown [id number] 2.16.840.1.422200.3.579.2 .903 1979 Unknown [id number] 2.16.840.1.994946.3.579.2 .627 1979 Unknown [id number] 2.16.840.1.520312.3.579.2 .627 1979 Unknown [id number] 2.16.840.1.427426.3.579.2 .627 1979 Unknown [id number] 2.16.840.1.658276.3.579.2 .627 1979 Unknown [id number] 2.16.840.1.472132.3.579.2 .627 1979 Unknown [id number] 2.16.840.1.436455.3.579.2 .627 1979 Unknown [id number] 2.16.840.1.889134.3.579.2 .627 1979 Unknown [id number] 2.16.840.1.156654.3.579.2 .627 1979 Unknown [id number] 2.16.840.1.062981.3.579.2 .627 1979 Unknown [id number] 2.16.840.1.025587.3.579.2 .627 1979 Unknown [id number] 2.16.840.1.958312.3.579.2 .651 1979 Unknown [id number] 2.16.840.1.781520.3.579.2 .651 1979 Unknown [id number] 2.16.840.1.418018.3.579.2 .651 1979 Unknown [id number] 2.16.840.1.880604.3.579.2 .651 1979 Unknown [id number] 2.16.840.1.580561.3.579.2 .651 1979 Unknown [id number] 2.16.840.1.873483.3.579.2 .651 1979 Unknown [id number] 2.16.840.1.946947.3.579.2 .651 1979 Unknown [id number] 2.16.840.1.661032.3.579.2 .651 1979 Unknown [id number] 2.16.840.1.765165.3.579.2 .651 1979 Unknown [id number] 2.16.840.1.821795.3.579.2 .651 1979 Unknown [id number] 2.16.840.1.658966.3.579.2 .651 1979 Unknown [id number] 2.16.840.1.524635.3.579.2 .651 1979 Unknown [id number] 2.16.840.1.935176.3.579.2 .651 1979 Unknown [id number] 2.16.840.1.131677.3.579.2 .651 1979 Unknown [id number] 2.16.840.1.857645.3.579.2 .651 Unknown [id number] Unknown [id number] 2.16.840.1.384542.3.579.2 .462 Unknown [id number] 2.16.840.1.977589.3.579.2 .462 Unknown [id number] 2.16.840.1.237155.3.579.2 .462 Unknown [id number] 2.16.840.1.028919.3.579.2 .462 Unknown [id number] 2.16.840.1.046384.3.579.2 .462 Unknown [id number] 2.16.840.1.944695.3.579.2 .462 Unknown [id number] 2.16.840.1.964822.3.579.2 .462 Unknown [id number] 2.16.840.1.444514.3.579.2 .462 Unknown [id number] 2.16.840.1.670094.3.579.2 .462 Unknown [id number] 2.16.840.1.518526.3.579.2 .462 Unknown [id number] 2.16.840.1.862269.3.579.2 .462 Social History Date Type Detail Facility Start: 06-25-2021 End: 05-15-2025 Tobacco smoking status INIS Smokes tobacco daily [employer] Work Phone: Start: 01-12-2014 End: 01-12-2017 History of tobacco use Cigarette Smoker [employer] Work Phone: Start: 06-25-2021 End: 12-03-2023 Cigarettes smoked current (pack per day) - Reported 0.[address] [facility] Start: 1980 Sex Assigned At Not on file [facility] Work Phone: Exposure to SARS-CoV -2 (event) Unable to assess [facility] Start: 01-21-2020 Heavy tobacco smoker (finding) [facility] Start: 08-15-[address] [facility] Start: 1980 Sex Assigned At Female [facility] Start: 09-05-2019 End: 10-18-2024 Tobacco smoking status NHIS Former smoker 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 Start: 06-29-2017 End: 10-27-2024 Tobacco use and exposure Smokeless tobacco non-user [facility] Start: 11-16-2020 End: 08-04-2022 History SDOH Alcohol Frequency [address] [facility] Start: 11-26-2010 History SDOH Alcohol Comment Occasional [facility] Start: 11-16-2020 History SDOH Social Connections Phone [address] [facility] Start: 11-16-2020 End: 08-27-2021 History SDOH Social Connections Judaism [address] [facility] Start: 11-16-2020 End: 06-17-2022 History SDOH Social Connections Membership [address] [facility] Start: 11-15-2020 Education [address] [facility] Start: 03-10-2011 End: 05-12-2022 Tobacco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 directions below to access the portal: 1.Access the email account you provided upon registration to the [facility].2.Look for an invitation email from [facility].3.Open the email and access the invitation link: Accept Invitation to [facility]4.Fill in the required xiong to create your account. Sign into [email or web address] with your username and password that you [...] you will allow to register on the [facility] Patient Portal for access to your information. You can also access the [facility] Patient Portal on the Chromasun mini. Simply click on Health Records under Health Data and then click on the [employer] logo. HOW TO SAFELY DISPOSE OF PRESCRIPTION [...] Call your local pharmacy or go to http://[employer].Fashfix/[email or web address] to find one close to you.3.Make use of household items: Use cat litter or old coffee grounds to dispose medications if other options are not available. Mix your drugs with these household products, seal them in an airtight container and throw it into the garbage. Call [facility]: [phone] to be sure your drugs can be [...] aware that I should contact my doctor. 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 She was seen for abd pain, difficulty urinating and foul smelling vaginal discharge. Pt called in again on 02/16/25 reporting worsening symptoms. 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 Went over these instructions with pt who is very angry and yelled several times that she is not going back to the ER becausethey won't do anything for her. Asked pt if she contacted her weaving professor provider. Pt states she did and they [...] who states pt is cleared until 03/09/25. [facility]06-10-2025 Note. MICRO - Microbiology PROCEDURE: Urine Culture [...] Locations *1: This test was performed at: [facility], [address] [place] [address], [id number] , [facility] Hospital Discharge instructions Patient Education [...] swelling in the outer vaginal area (labia) 9914-5644 [employer]. [address] [place] [address]. All rights reserved. This information is not intended as a substitute for professional medical care. Always follow yourhealthcare professional's instructions. Follow Up Care 02/19/2025 10:32:20 With:Go to emergency room if symptoms worsen Address:Unknown When:2-4 days With:SILVERIO HALEY MD Address: [address] [place] [address]- When:2-4 days [facility] 06-08-2025 Emergency department Discharge summary Discharge Instructions Thank you for allowing [facility] to assist you with your healthcare needs. [...] SILVERIO HALEY MD When:Within 2-4 days Where:[address] [place] [address]- Allergies Advil Contrast dye Flagyl Motrin NSAIDS [...] may report side effects to FDA at 5-129-MEU-1379. What other drugs will affect cephalexin? Tell your doctor about all your other medicines, especially: metformin; or probenecid. This list is not complete. Other drugs may affect cephalexin, including prescription and goxl-cqa-tlupgts medicines, vitamins, and herbal products. Not all [...] to ensure that the information provided by [employer]. ('[employer]') is accurate, up-to-date, and complete, but no guarantee is made to that effect. Drug information contained herein may be time sensitive. [employer] information has been compiled for use by healthcare practitioners and consumers in the [place] and therefore [employer] does not warrant that uses outside of the [place] are appropriate, unless specifically indicated otherwise. [employer] drug information does not endorse drugs, diagnose patients or recommend therapy. [employer] drug information isan informational resource designed to [...] effective or appropriate for any given patient. [employer] does not assume any responsibility for any aspect of healthcare administered with the aid of information [employer] provides. The information contained herein is not intended to cover all possible uses, directions, precautions, warnings, drug interactions, allergic reactions, or adverse effects. If you have questions about the drugs you are taking, check with your doctor, nurse or pharmacist. Copyright 4107-6732 [employer]. Version: 08.14. Revision Date: 04/15/2023. phenazopyridine (fen AY fredis [...] diabetes; or a genetic enzyme deficiency called hgdqbmb-7-rrsbroffc dehydrogenase (G6PD) deficiency. FDA category B. Phenazopyridine [...] may report side effects to FDA at 3-736-FOB-2754. What other drugs will affect phenazopyridine? Other drugs may interact with phenazopyridine, including prescription and huxo-cms-hiasmwm medicines, vitamins, and herbal products. Tell each [...] to ensure that the information provided by [employer] ('[employer]') is accurate, up-to-date, and complete, but no guarantee is made to that effect. Drug information contained herein may be time sensitive. [employer] information has been compiled for use by healthcare practitioners and consumers in the [place] and therefore [employer] does not warrant that uses outside of the [place] are appropriate, unless specifically indicated otherwise. [employer] drug information does not endorse drugs, diagnose patients or recommend therapy. [employer] drug information isan informational resource designed to [...] effective or appropriate for any given patient. [facility] does not assume any responsibility for any aspect of healthcare administered with the aid of information [facility] provides. The information contained herein is not intended to cover all possible uses, directions, precautions, warnings, drug interactions, allergic reactions, or adverse effects. If you have questions about the drugs you are taking, check with your doctor, nurse or pharmacist. Copyright 2416-9894 [facility] [employer]. Version: 5.01. Revision Date: 04/21/2023. fluconazole (oral/injection) [...] may report side effects to FDA at 3-834-PJX-1052. What other drugs will affect fluconazole? Sometimes [...] or stop using. This includes prescription and byvw-dyu-zlbdmng medicines, vitamins, and herbal products. Not all [...] to ensure that the information provided by [employer] ('[employer]') is accurate, up-to-date, and complete, but no guarantee is made to that effect. Drug information contained herein may be time sensitive. [employer] information has been compiled for use by healthcare practitioners and consumers in the [place] and therefore [employer] does not warrant that uses outside of the [place] are appropriate, unless specifically indicated otherwise. [employer] drug information does not endorse drugs, diagnose patients or recommend therapy. [employer] drug information isan informational resource designed to [...] effective or appropriate for any given patient. [employer] does not assume any responsibility for any aspect of healthcare administered with the aid of information [employer] provides. The information contained herein is not intended to cover all possible uses, directions, precautions, warnings, drug interactions, allergic reactions, or adverse effects. If you have questions about the drugs you are taking, check with your doctor, nurse or pharmacist. Copyright 3618-3919 [employer]. Version: 14.. Revision Date: 10/08/2022. Education Materials [...] swelling in the outer vaginal area (labia) 1087-5779 [employer]. [address] [place] [address]. All rights reserved. This information is not intended as a substitute for professional medical care. Always follow yourhealthcare professional's instructions. Additional Information VACCINATE! IT SAVES LIVES! Members of the community who have not yet received the COVID-19 vaccine and would like to receive it can visit one of [facility] vaccine clinics. There are many vaccine clinic locations within the [facility]. For locations and available times, please visit www.gettheshot.coronavirus.[place].gov/. It is important to note that some COVID mobile vaccine clinics are held outdoors and may be canceled in rainy or stormy conditions. To learn more about pediatric vaccinations (ages 5-11), we invite you to visit the [facility] webpage. https://www.[facility].org/pages/7050-Qmbkz-Yijaryqfeis-Hhvkowaemj-Aqdiv-Llh stions.htmlTo learn more about the COVID-19 vaccine, we invite you to visit the CDC website for a list of frequently asked questions. https://www.cdc.gov/coronavirus/2019-ncov/vaccines/faq.html [facility] [employer] Patient Portal Access Instructions: Stay connected with your healthcare team and access your personal medical information anytime with the [facility] Patient Portal. If you would like a full copy of your medical records please contact the [facility] Medical Records Department Thursday through Thursday between 8a.m. and 4:30p.m. Please follow the directions below to access the portal: 1.Access the email account you provided upon registration to the [facility].2.Look for an invitation email from [facility].3.Open the email and access the invitation link: Accept Invitation to [facility]4.Fill in the required xiong to create your account. Sign into [email or web address] with your username and password that you [...] you will allow to register on the [facility] Patient Portal for access to your information. You can also access the [facility] Patient Portal on the Chromasun mini. Simply click on Health Records under VitrynData and then click on the [employer] logo. HOW TO SAFELY DISPOSE OF PRESCRIPTION [...] Call your local pharmacy or go to http://bit.ly/3P2Aw5c to find one close to you.3.Make use of household items: Use cat litter or old coffee grounds to dispose medications if other options arenot available. Mix your drugs with these household products, seal them in an airtight container andthrow it into the garbage. Call [facility]: [phone] to be sure your drugs can be [...] aware that I should contact my doctor. 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 Crystal [id number] Telephone encounter Note* Telephone Encounter - Merced Hutchinson APRN.CNP - 02/17/2025 2:44 PM EDT Okay with whatever ER she prefers but I cannot say if she needs or does not need a catheter. If sheis not urinating she likely needs one to help decompress the bladder. That would be at the discretion of the ER provider. [facility]06-06-2025 Miscellaneous Notes* Telephone Encounter - Merced Hutchinson [...] a catheter. Patient plans to go to [facility] ER. Attempted to discuss further with patient and she disconnected the line. Ivanna Torre RN * Telephone Encounter - Sallie Benitez LPN - 02/17/2025 11:12 AM EDT Spoke with patient and as soon as she realized who was calling she stated I'm not going to no ER and I am having no catheter inserted unless they put me out. [facility] ER will not do anything for me. Patient did state that she still has yet to urinate and made comment that she was trying to make money. Call ended before suggestion could be made to visit [place] or [place] ER. * Telephone Encounter - Ashlyn Recio RN - 02/17/2025 11:07 AM EDT Pt called and is notified of providers message and instructions. Pt states she feels the same way. She is in pain and can't pee. She states,I'm not going to [facility] they think I'm just there for pain [...] worse. Pt reports she went to the [facility] the same night she went in to see Merced Hutchinson INORGANIC CHEMIST because of the pain. She states they [...] advise. Ashlyn Recio RN documented in this [facility] Telephone encounter Note * Telephone Encounter - Ivanna Torre RN - 02/17/2025 12:59 PM EDT Patient calls back to let provider know that she will go to the ER only if provider herself calls to say she is coming and to tell the ER staff that she is in pain and she doesn't need a catheter. Patient plans to go to [facility] ER. Attempted to discuss further with patient and she disconnected the line. Ivanna Torre RN [facility]06-06-2025 Telephone encounter Note* Telephone Encounter - Sallie Benitez LPN - 02/17/2025 11:12 AM EDT Spoke with patient and as soon as she realized who was calling she stated I'm not going to no ER and I am having no catheter inserted unless they put me out. [facility] ER will not do anything for me. Patient did state that she still has yet to urinate and made comment that she was trying to make money. Call ended before suggestion could be made to visit [place] or [place] ER. [facility]06-06-2025 Telephone encounter Note* Telephone Encounter - Ashlyn Recio RN - 02/17/2025 11:07 AM EDT Pt called and is notified of providers message and instructions. Pt states she feels the same way. She is in pain and can't pee. She states,I'm not going to [facility] they think I'm just there for pain medicine and treat me like shit. I'm not going to the ER and no one wants to help me. I can't pee. If I I , Oh well.. Then Pt hung up on me. Ashlyn Recio RN [facility]06-06-2025 Telephone encounter Note* Telephone Encounter - Merced Hutchinson APRN.CNP - 02/17/2025 8:34 AM EDT If pain is that severe and not able to urinate then agree, she needs to return to ER [facility]. Since she has been on treatment for a few days, please get an update on how she is feeling/doing today. [facility]06-05-2025 Telephone encounter Note* Telephone Encounter - Ivanna [...] be aware. See below for further detail. Iavnna Torre RN [facility]06-05-2025 Telephone encounter Note* Telephone Encounter - Ashlyn [...] worse. Pt reports she went to the [facility] the same night she went in to see Merced Hutchinson INORGANIC CHEMIST because of the pain. She states they [...] Please call and advise. Ashlyn Recio RN [facility]06-03-2025 NoteHNO ID: [id number] Author: MERCED HUTCHINSON APRN.MANUELITO Service: ? Author Type: Nurse Practitioner Type: [...] On Thursday, Sally attempted to work at [employer] but had to leave early due to [...] NASAL) 0.65 % nasal spray Use 1 [place]loo in the nose as needed. etodolac (LODINE) [...] Disorder - 03/31/2016 (A priority) Comment: Seeing [place] [facility]. Reactive Depression - 03/31/2016 (A priority) Comment: Seeing INORGANIC CHEMIST at Counseling (more content not included)...[facility]06-03-2025 History of Present illness Narrative* Merced Hutchinson APRN.SALES MERCHANDISING SPECIALIST - 02/14/2025 11:06 AM EDT SUBJECTIVE Sally [...] On Thursday, Sally attempted to work at [employer] but had to leave early due to [...] NASAL) 0.65 % nasal spray Use 1 Waterloo in the nose as needed. etodolac (LODINE) [...] Disorder - 03/31/2016 (A priority) Comment: Seeing [facility]. Reactive Depression - 03/31/2016 (A priority) Comment: Seeing INORGANIC CHEMIST at Counseling center. Migraine Without Aura - 05/17/2008 (A priority) Comment: Has used imitrex with good response; Adjustment Insomnia - 03/31/2016 (B priority) Allergic rhinitis, cause unspecified - 05/17/2008 (B priority) Comment: Spring and summer Calculus of Kidney - 05/17/2008 (C priority) Comment: Sees Dr. Nicolas: Hospitalized age 20, and again later -- no procedures so far ([facility], [facility]) Cigarette Smoker - 05/17/2008 (C priority) Bilateral [...] for 7 days. - Prescriptions sent to [facility] pharmacy. - Follow-up via phone in one [...] hours after completion. - Prescriptions sent to [facility] pharmacy. - Follow-up via phone in one [...] improve. Merced Hutchinson APRN-MANUELITO documented in this encounterUniversity Hospitals [facility]. [facility]06-[facility] Instructions* Patient Instructions* Sallie Benitez LPN - [...] treated. A physician, nurse practitioner or physician switchboard operator assistant may treat with a short course [...] women if symptoms resolve. documented in this encounterUniversity Hospitals St. [facility]-2025 NotePatient Outreach (INTMWS) SALLY VARGAS ([id number]) 1980 F Date Time Provider Department 01/17/25 [...] Upset Date Reviewed: 12/14/2024 Reviewed by: Alice Cameron RN - Fully Assessed Visit Diagnosis:Encounter for screening mammogram for breast cancer [Z12.31] Order(s):[facility] SCREENING [facility] [[id number]] Order #: [id number] FUTURE Prescriptions as of 02/17/2025 - nitrofurantoin [...] NASAL) 0.65 % nasal spray Use 1 Waterloo in the nose as needed. - gabapentin [...] Marijuana use [F12.90] 10 (more content not included)...[facility]04-17-2025 History of Present illness Narrative* [...] 4 weeks (around 01/26/2025). documented in this [place] [id number] Hospital Discharge instructions* Discharge Instructions* Damion Silva DO - 12/27/2024 4:28 PM EDT Follow-up with your PRESS MANAGER as scheduled on . You can alternate the oxycodone with 1000 mg of Tylenol every 4 hours as needed for pain, or you can take them together every 6 hours. documented in this [place] [id number] Telephone encounter Note* Telephone Encounter - Tamara Castillo MA - 12/27/2024 3:22 PM EDT Noted. Patient in ED. [place] [id number] Miscellaneous Notes* Telephone Encounter - Tamara Castillo [...] schedule and patient hung up Office Name: [facility] Medication Refills need, if any: n/a Medication Name: n/a * Telephone Encounter - Tomasa Richardson MA - 12/27/2024 2:41 PM EDT Reviewed * Telephone Encounter - Bisi Lozada - 12/27/2024 2:18 PM EDT Name of caller: Sally Contact phone number: [phone] Relationship to Patient: patient Provider: Kimberly Practice: [facility] Chief Complaint/Reason for Call: Patient states she was told to go to the ER and she wants Dr. Story to know that she is there for abdominal pain. Best time of day caller can be reached: PM Patient advised that office/PCP has 24-48 business hours to return their call: No documented in this [facility]04-15-2025 Telephone encounter Note* Telephone Encounter - Rhonda Hodge - 12/27/2024 3:01 PM EDT Name of Caller: Sally Vargas Contact Reason for Appointment: Patient returning call from office. Advised patient the Dr would like her to schedule an appointment, see triage 12.27.24. Patient states I'm already in the emergency department. Put patient on hold to schedule and patient hung up Office Name: [facility] Medication Refills need, if any: n/a Medication Name: n/a [id number] Telephone encounter Note* Telephone Encounter - Tomasa Richardson MA - 12/27/2024 2:41 PM EDT Reviewed [place] [id number] Telephone encounter Note* Telephone Encounter - Bisi Lozada - 12/27/2024 2:18 PM EDT Name of caller: Sally Contact phone number: [phone] Relationship to Patient: patient Provider: Kimberly Practice: [facility] Chief Complaint/Reason for Call: Patient states she was told to go to the ER and she wants Dr. Story to know that she is there for abdominal pain. Best time of day caller can be reached: PM Patient advised that office/PCP has 24-48 business hours to return their call: No [place] [id number] Emergency department Note* Damion Silva DO - [...] and was supposed to follow-up with her PRESS MANAGER, Dr. Story. Was attempting to make an [...] mg by mouth every 12 hours. HYDROcodone-acetaminophen (Raymond) 5-325 MG tablet Dose = 1 tab(s), [...] Problem Relation Name Age of Onset Other (54534) Mother blood clots Hyperlipidemia Mother High Blood [...] Resource Strain: Patient Declined (12/14/2023) Received from [facility] Overall Financial Resource Strain (CARDIA) Difficulty of Paying Living Expenses: Patient declined Food Insecurity: Patient Declined (12/14/2023) Received from [facility] Hunger Vital Sign Worried About Running Out of Food in the Last Year: Patient declined Ran Out of Food in the Last Year: Patient declined Transportation Needs: Patient Declined (12/14/2023) Received from [facility] PRAPARE - Transportation Lack of Transportation (Medical): Patient declined Lack of Transportation (Non-Medical): Patient declined Physical Activity: Patient Declined (12/14/2023) Received from [facility] Exercise Vital Sign Days of Exercise per Week: Patient declined Minutes of Exercise per Session: Patient declined Stress: No Stress Concern Present (11/15/2020) Received from [facility], [facility] [place] [facility] - Occupational Stress Questionnaire Feeling of Stress : Only a little Social Connections: Unknown (12/14/2023) Received from [facility] Social Connection and Isolation Panel [NHANES] Active Member of Clubs or Organizations: Patient declined Marital Status: Patient declined Housing Stability: Patient Declined (12/14/2023) Received from [facility] Housing Stability Vital Sign Unable to Pay [...] schedule an appointment to follow-up with her PRESS MANAGER and they had discussed doing scoping due to her persistent chronic pain. She is here for pain control today. She was given p.o. oxycodone and Zofran. Will be given a short course of oxycodone. She is now scheduled follow-up with her PRESS MANAGER for . CRITICAL CARE TIME CONSULTS: None PROCEDURES: Unless otherwise noted below, none Procedures Patients symptoms are consistent with sepsis, severe sepsis, or septic shock (If yes use .sepsiscoremeasure): FINAL IMPRESSION 1. Chronic pelvic pain in female DISPOSITION Discharge 12/27/2024 04:27:02 PM PATIENT REFERRED TO: Sunny Story MD [address] [facility] [address] DISCHARGE MEDICATIONS: Current Discharge Medication List START [...] Silva DO 12/27/[address] [facility]04-15-2025 Physician Emergency department Note* Damion Silva DO [...] and was supposed to follow-up with her PRESS MANAGER, Dr. Story. Was attempting to make an [...] mg by mouth every 12 hours. HYDROcodone-acetaminophen (Raymond) 5-325 MG tablet Dose = 1 tab(s), [...] Problem Relation Name Age of Onset Other (15462) Mother blood clots Hyperlipidemia Mother High Blood [...] Resource Strain: Patient Declined (12/14/2023) Received from [facility] Overall Financial Resource Strain (CARDIA) Difficulty of Paying Living Expenses: Patient declined Food Insecurity: Patient Declined (12/14/2023) Received from [facility] Hunger Vital Sign Worried About Running Out of Food in the Last Year: Patient declined Ran Out of Food in the Last Year: Patient declined Transportation Needs: Patient Declined (12/14/2023) Received from [facility] PRAPARE - Transportation Lack of Transportation (Medical): Patient declined Lack of Transportation (Non-Medical): Patient declined Physical Activity: Patient Declined (12/14/2023) Received from [facility] Exercise Vital Sign Days of Exercise per Week: Patient declined Minutes of Exercise per Session: Patient declined Stress: No Stress Concern Present (11/15/2020) Received from [facility], [facility] [place] [facility] [employer] [facility] - Occupational Stress Questionnaire Feeling of Stress : Only a little Social Connections: Unknown (12/14/2023) Received from [facility] Social Connection and Isolation Panel [NHANES] Active Member of Clubs or Organizations: Patient declined Marital Status: Patient declined Housing Stability: Patient Declined (12/14/2023) Received from [facility] Housing Stability Vital Sign Unable to Pay [...] 4 mg (4 mg Oral Given 12/27/24 8598) REVAL: 44-year-old female presenting to the ED [...] schedule an appointment to follow-up with her PRESS MANAGER and they had discussed doing scoping due to her persistent chronic pain. She is here for pain control today. She was given p.o. oxycodone and Zofran. Will be given a short course of oxycodone. She is now scheduled follow-up with her PRESS MANAGER for . CRITICAL CARE TIME CONSULTS: None PROCEDURES: Unless otherwise noted below, none Procedures Patients symptoms are consistent with sepsis, severe sepsis, or septic shock (If yes use .sepsiscoremeasure): FINAL IMPRESSION 1. Chronic pelvic pain in female DISPOSITION Discharge 12/27/2024 04:27:02 PM PATIENT REFERRED TO: Sunny Story MD [address] [place] [id number] DISCHARGE MEDICATIONS: Current Discharge Medication List START [...] Medicine Provider Damion Silva DO 12/27/24 1641 [facility] [id number] History of Present illness Narrative* Sunny Story [...] estrogen- having hot flashes HPI : Sally aVrgas is a 44 y.o. female here for [...] Problem Relation Name Age of Onset Other (01861) Mother blood clots Hyperlipidemia Mother High Blood [...] Resource Strain: Patient Declined (12/14/2023) Received from [facility] Overall Financial Resource Strain (CARDIA) Difficulty of Paying Living Expenses: Patient declined Food Insecurity: Patient Declined (12/14/2023) Received from [facility] Hunger Vital Sign Worried About Running Out of Food in the Last Year: Patient declined Ran Out of Food in the Last Year: Patient declined Transportation Needs: Patient Declined (12/14/2023) Received from [facility] PRAPARE - Transportation Lack of Transportation (Medical): Patient declined Lack of Transportation (Non-Medical): Patient declined Physical Activity: Patient Declined (12/14/2023) Received from [facility] Exercise Vital Sign Days of Exercise per Week: Patient declined Minutes of Exercise per Session: Patient declined Stress: No Stress Concern Present (11/15/2020) Received from [facility], [facility] [place] of Occupational Health - Occupational Stress Questionnaire Feeling of Stress : Only a little Social Connections: Unknown (12/14/2023) Received from [facility] Social Connection and Isolation Panel [NHANES] Frequency of Communication with Friends and Family: Not on file Frequency of Social Gatherings with Friends and Family: Not on file Attends Jainism Services: Not on file Active Member of Clubs or Organizations: Patient declined Attends Club or Organization Meetings: Not on file Marital Status: Patient declined Intimate Partner Violence: Not on file Housing Stability: Patient Declined (12/14/2023) Received from [facility] Housing Stability Vital Sign Unable to Pay [...] mg by mouth every 12 hours. HYDROcodone-acetaminophen (Raymond) 5-325 MG tablet Dose = 1 tab(s), [...] Body mass index is 33.47 kg/m . 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 Pelvic Health; Future Other orders - estradiol (Estrace) 2 MG tablet; Take 1 tablet (2 mg) by mouth daily. Follow up for annual. ER notes and imaging reviewed Not on estrogen - was on in past Discussed ERT, pain clinic, and surgery Restart estrogen and see pain clinic documented in this [facility]04-08-2025 Telephone encounter Note* Telephone Encounter - Kathy [...] hours Protocols used: Abdominal Pain - ADULT-[place] [facility] [id number] Miscellaneous Notes* Telephone Encounter - Kathy Churchill RN - 12/20/2024 10:32 AM EDT S: Patient spoke with [facility] nurse seeking a sooner appointment with Dr. [...] Abdominal Pain - ADULT-[place] documented in this encounterSUpper Valley Medical [id number] Telephone encounter Note* Telephone Encounter - Augustina Allen RN - 12/19/2024 8:45 AM EDT S: Caller spoke with [facility] nurse regarding lower abdominal pain and nausea. B: Onset of symptoms/concern: Not an established patient A: Caller states she has gone to the ED three (3) times for this issue, has an appointment on Thursday but is looking for something sooner, was told by her PCP that she needs to see her PRESS MANAGER for her chronic abdominal pain. Caller denies pelvic pain. R: Caller advised I am unable to get her seen sooner and needs to keep her appointment as scheduledon 12/21/24 to re-establish care. Reason for Disposition Abdominal pain is a chronic symptom (recurrent or ongoing AND lasting > 4 weeks) Protocols used: Abdominal Pain - ADULT-[place] [facility] [id number] Miscellaneous Notes* Telephone Encounter - Augustina Allen RN - 12/19/2024 8:45 AM EDT S: Caller spoke with [facility] nurse regarding lower abdominal pain and nausea. B: Onset of symptoms/concern: Not an established patient A: Caller states she has gone to the ED three (3) times for this issue, has an appointment on Thursday but is looking for something sooner, was told by her PCP that she needs to see her PRESS MANAGER for her chronic abdominal pain. Caller denies pelvic pain. R: Caller advised I am unable to get her seen sooner and needs to keep her appointment as scheduledon 12/21/24 to re-establish care. Reason for Disposition Abdominal pain is a chronic symptom (recurrent or ongoing AND lasting > 4 weeks) Protocols used: Abdominal Pain - ADULT-[place] documented in this encounterSUpper Valley Medical [id number] Emergency department Note* Silvia Lofton RN - 12/17/2024 2:17 PM EDT Pt observed on camera getting into her vehicle and driving away after being instructed not to driveafter receiving narcotics in the ER [id number] Emergency department Note* Silvia Lofton RN - [...] come back reassuring. She has follow-up with PRESS MANAGER in 4 days Nursing Notes were reviewed. [...] Problem Relation Name Age of Onset Other (45077) Mother blood clots Hyperlipidemia Mother High Blood [...] Resource Strain: Patient Declined (12/14/2023) Received from [facility] Overall Financial Resource Strain (CARDIA) Difficulty of Paying Living Expenses: Patient declined Food Insecurity: Patient Declined (12/14/2023) Received from [facility] Hunger Vital Sign Worried About Running Out of Food in the Last Year: Patient declined Ran Out of Food in the Last Year: Patient declined Transportation Needs: Patient Declined (12/14/2023) Received from [facility] PRAPARE - Transportation Lack of Transportation (Medical): Patient declined Lack of Transportation (Non-Medical): Patient declined Physical Activity: Patient Declined (12/14/2023) Received from [facility] Exercise Vital Sign Days of Exercise per Week: Patient declined Minutes of Exercise per Session: Patient declined Stress: No Stress Concern Present (11/15/2020) Received from [facility], [facility] [place] of Occupational Health - Occupational Stress Questionnaire Feeling of Stress : Only a little Social Connections: Unknown (12/14/2023) Received from [facility] Social Connection and Isolation Panel [NHANES] Active Member of Clubs or Organizations: Patient declined Marital Status: Patient declined Housing Stability: Patient Declined (12/14/2023) Received from [facility] Housing Stability Vital Sign Unable to Pay [...] [facility] (Per Emergency Physician): Interpretation per the [...] Culture. Procedure Abnormality Status --------- ------ Complete Urinalysis[[id number]] Please view results for these tests on [...] she has relatively benign exam. She says Raymond at home is not controlling her pain.This [...] had a hysterectomy. Pt was seen at [facility] recently for same and has not improved. Taking Raymond without relief. Rates pain 9/10 at this time. States had some slightly bloody vaginal discharge. Denies urinary symptoms, vomiting or diarrhea. + nausea which is unrelieved by Zofran. Pt ambulatory on arrival with steady gait. Alert and oriented x 4. Skin warm and dry. Respirations even and unlabored. Pt changed into hospital gown. Call light in reach. documented in this encounterSUpper Valley Medical [id number] Emergency department Note* Silvia Lofton RN - 12/17/2024 2:16 PM EDT Discussed with pt the need to get a ride home due to receiving IV narcotic pain medication. Pt states she will sit in the waiting room and not drive home. [facility] [id number] Emergency department Note* Silvia Lofton RN - 12/17/2024 12:40 PM EDT Pt instructed on self swab for GC/ chlamydia and verbalized understanding [facility] [id number] Emergency department Triage note* Silvia Lofton RN - 12/17/2024 11:40 AM EDT Pt to ER with complaint of pelvic pain. And vaginal discharge. States she has had a hysterectomy. Pt was seen at [facility] recently for same and has not improved. Taking Raymond without relief. Rates pain 9/10 at this time. States had some slightly bloody vaginal discharge. Denies urinary symptoms, vomiting or diarrhea. + nausea which is unrelieved by Zofran. Pt ambulatory on arrival with steady gait. Alert and oriented x 4. Skin warm and dry. Respirations even and unlabored. Pt changed into hospital gown. Call light in reach. [facility] [id number] Physician Emergency department Note* Emiliano White MD [...] come back reassuring. She has follow-up with PRESS MANAGER in 4 days Nursing Notes were reviewed. [...] Problem Relation Name Age of Onset Other (68114) Mother blood clots Hyperlipidemia Mother High Blood [...] Resource Strain: Patient Declined (12/14/2023) Received from [facility] Overall Financial Resource Strain (CARDIA) Difficulty of Paying Living Expenses: Patient declined Food Insecurity: Patient Declined (12/14/2023) Received from [facility] Hunger Vital Sign Worried About Running Out of Food in the Last Year: Patient declined Ran Out of Food in the Last Year: Patient declined Transportation Needs: Patient Declined (12/14/2023) Received from [facility] PRAPARE - Transportation Lack of Transportation (Medical): Patient declined Lack of Transportation (Non-Medical): Patient declined Physical Activity: Patient Declined (12/14/2023) Received from [facility] Exercise Vital Sign Days of Exercise per Week: Patient declined Minutes of Exercise per Session: Patient declined Stress: No Stress Concern Present (11/15/2020) Received from [facility], [facility] [place] of Occupational Health - Occupational Stress Questionnaire Feeling of Stress : Only a little Social Connections: Unknown (12/14/2023) Received from [facility] Social Connection and Isolation Panel [NHANES] Active Member of Clubs or Organizations: Patient declined Marital Status: Patient declined Housing Stability: Patient Declined (12/14/2023) Received from [facility] Housing Stability Vital Sign Unable to Pay [...] Culture. Procedure Abnormality Status --------- ------ Complete Urinalysis[[id number]] Please view results for these tests on [...] she has relatively benign exam. She says Raymond at home is not controlling her pain.This [...] 10 mg (10 mg IntraVENous Given 12/17/24 5365) REVAL: CRITICAL CARE TIME CONSULTS: None PROCEDURES: [...] Medicine Provider Emiliano White MD 12/17/24 1301 [facility] InstituteOthjwt29-74-1382 Telephone encounter Note* Telephone Encounter - Tamara Castillo MA - 12/15/2024 11:19 AM EDT LVM for patient to return call to schedule ED follow up [facility] [id number] Miscellaneous Notes* Telephone Encounter - Tamara Castillo [...] N/A Medication Name: N/A documented [place]SB[place] [id number] Telephone encounter Note* Telephone Encounter - Marisa [...] need, if any: N/A Medication Name: N/A [id number] Emergency department Note* Amanda Nath RN - 12/15/2024 3:30 AM EDT IV removed from right AC prior to DC [id number] Emergency department Note* Amanda Nath RN - 12/15/2024 3:30 AM EDT IV removed from right AC prior to DC * Fan Wesley DO - 12/15/2024 12:41 AM EDT Emergency Department Encounter [facility] ED Patient: Sally Vargas : 1980 Date of Evaluation: 12/15/2024 ED Provider: Fan Wesley DO Chief Complaint Chief Complaint Patient presents with Abdominal Pain Pt reports abd pain with nausea for the past 4 days, reports she went to the restroom and noticed blood in her underwear, she reports a hx of a total hysterectomy CHEHALIS Sally Vargas is a 44 y.o. female [...] Resource Strain: Patient Declined (12/14/2023) Received from [facility] Overall Financial Resource Strain (CARDIA) Difficulty of Paying Living Expenses: Patient declined Food Insecurity: Patient Declined (12/14/2023) Received from [facility] Hunger Vital Sign Worried About Running Out of Food in the Last Year: Patient declined Ran Out of Food in the Last Year: Patient declined Transportation Needs: Patient Declined (12/14/2023) Received from [facility] PRAPARE - Transportation Lack of Transportation (Medical): Patient declined Lack of Transportation (Non-Medical): Patient declined Physical Activity: Patient Declined (12/14/2023) Received from [facility] Exercise Vital Sign Days of Exercise per Week: Patient declined Minutes of Exercise per Session: Patient declined Stress: No Stress Concern Present (11/15/2020) Received from [facility], [facility] [place] [facility] [employer] [facility] - Occupational Stress Questionnaire Feeling of Stress : Only a little Social Connections: Unknown (12/14/2023) Received from [facility] Social Connection and Isolation Panel [NHANES] Active Member of Clubs or Organizations: Patient declined Marital Status: Patient declined Housing Stability: Patient Declined (12/14/2023) Received from [facility] Housing Stability Vital Sign Unable to Pay [...] MOUTH EVERY DAY, Starting 06/06/2023, Normal HYDROcodone-acetaminophen (Raymond) 5-325 MG tablet Take 1 tablet by [...] Triage Vitals Temp Heart Rate Resp BP 12/15/244712/15/244712/15/244712/15/2447 36.6 C (97.9 F) 106 16 (!) 168/81 SpO2 Temp Source Heart Rate Source Patient Position 12/15/244712/15/244712/15/244712/15/24157 100 % Temporal Monitor Lying BP Location FiO2 (%) 12/15/248 -- Left arm GENERAL: The patient appears [...] follow-up with her primary care doctor and PRESS MANAGER. Diagnoses as of 12/15/24 0732 Suprapubic pain ED Medications managed: Medications morphine injection 4 mg (4 mg IntraVENous Given 12/15/24218) ondansetron (Zofran) injection 4 mg (4 mg IntraVENous Given 12/15/24215) Patients symptoms are consistent with sepsis, severe [...] for clarification. Fan Wesley DO Acute Care [facility] Fan Wesley DO 12/15/[address] [facility]04-03-2025 Hospital Discharge instructions* Discharge Instructions* Fan Wesley DO - 12/15/2024 3:14 AM EDT Please continue to take Tylenol as needed for pain, use the previously prescribed pain medicine andfollow-up with your primary care doctor. I also recommend you follow-up with Dr. Hearn's office. * Attachments The following attachments cannot be sent through Care Everywhere. * Severe Abdominal Pain Discharge Instructions, Adult ([place]) documented in this [facility]04-03-2025 Physician Emergency department Note* Fan Wesley DO - 12/15/2024 12:41 AM EDT Emergency Department Encounter [facility] ED Patient: Sally Vargas : 1980 Date of Evaluation: 12/15/2024 ED Provider: Fan Wesley DO Chief Complaint Chief Complaint Patient presents with Abdominal Pain Pt reports abd pain with nausea for the past 4 days, reports she went to the restroom and noticed blood in her underwear, she reports a hx of a total hysterectomy CHEHALIS Sally Vargas is a 44 y.o. female [...] Resource Strain: Patient Declined (12/14/2023) Received from [facility] Overall Financial Resource Strain (CARDIA) Difficulty of Paying Living Expenses: Patient declined Food Insecurity: Patient Declined (12/14/2023) Received from [facility] Hunger Vital Sign Worried About Running Out of Food in the Last Year: Patient declined Ran Out of Food in the Last Year: Patient declined Transportation Needs: Patient Declined (12/14/2023) Received from [facility] PRAPARE - Transportation Lack of Transportation (Medical): Patient declined Lack of Transportation (Non-Medical): Patient declined Physical Activity: Patient Declined (12/14/2023) Received from [facility] Exercise Vital Sign Days of Exercise per Week: Patient declined Minutes of Exercise per Session: Patient declined Stress: No Stress Concern Present (11/15/2020) Received from [facility], [facility] [place] [facility] [employer] Health - Occupational Stress Questionnaire Feeling of Stress : Only a little Social Connections: Unknown (12/14/2023) Received from [facility] Social Connection and Isolation Panel [NHANES] Active Member of Clubs or Organizations: Patient declined Marital Status: Patient declined Housing Stability: Patient Declined (12/14/2023) Received from [facility] Housing Stability Vital Sign Unable to Pay [...] MOUTH EVERY DAY, Starting 06/06/2023, Normal HYDROcodone-acetaminophen (Raymond) 5-325 MG tablet Take 1 tablet by [...] Triage Vitals Temp Heart Rate Resp BP 12/15/244712/15/244712/15/244712/15/2447 36.6 C (97.9 F) 106 16 (!) 168/81 SpO2 Temp Source Heart Rate Source Patient Position 12/15/244712/15/244712/15/244712/15/24157 100 % Temporal Monitor Lying BP Location FiO2 (%) 12/15/24157 -- Left arm GENERAL: The patient appears [...] follow-up with her primary care doctor and PRESS MANAGER. Diagnoses as of 12/15/24 0732 Suprapubic pain ED Medications managed: Medications morphine injection 4 mg (4 mg IntraVENous Given 12/15/24218) ondansetron (Zofran) injection 4 mg (4 mg IntraVENous Given 12/15/24215) Patients symptoms are consistent with sepsis, severe [...] for clarification. Fan Wesley DO Acute Care [facility] Fan Wesley DO 12/15/24 0738 [facility] [id number] Telephone encounter Note* Telephone Encounter - Renetta Gonzales RN - 12/14/2024 11:03 PM EDT S: Patient spoke with [facility] nurse regarding abdominal pain. DONTRELL 2020. B: Onset of symptoms/concern patient was in ER on 12/12/2024 and states that she was told that pain was from endometriosis. Patient spoke with [facility] nurse industrial relations director today and was advised to go to [...] hour Protocols used: Abdominal Pain - ADULT-[place] [facility] [id number] Miscellaneous Notes* Telephone Encounter - Renetta Gonzales RN - 12/14/2024 11:03 PM EDT S: Patient spoke with [facility] nurse regarding abdominal pain. DONTRELL 2020. B: Onset of symptoms/concern patient was in ER on 12/12/2024 and states that she was told that pain was from endometriosis. Patient spoke with [facility] nurse industrial relations director today and was advised to go to [...] Abdominal Pain - ADULT-[place] documented [facility] this [facility]04-02-[facility] Telephone encounter Note* Telephone Encounter - Alice [...] History or hysterectomy Patient was seen at [facility] 2 days ago for belly pain and dizziness and diagnosed with an endometriosis flare. 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 Vaginal bleeding this evening is a new symptom. Outcome Go To Emergency Room Now (disposition given to patient). Patient plans to drive self to an emergency room but not [place] [facility]. She may use an emergency room in [place]. Advised patient not to drive self. Call [...] My Note Protocols used: Vaginal Bleeding - [id number]-IY [facility]04-02-2025 Miscellaneous Notes* Telephone Encounter - Alice Cameron [...] History or hysterectomy Patient was seen at [facility] 2 days ago for belly pain and dizziness and diagnosed with an endometriosis flare. 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 Vaginal bleeding this evening is a new symptom. Outcome Go To Emergency Room Now (disposition given to patient). Patient plans to drive self to an emergency room but not [facility]. She may use an emergency room in [place]. Advised patient not to drive self. Call [...] My Note Protocols used: Vaginal Bleeding - [id number] documented in this encounterUniversity [facility] Telephone encounter Note * Telephone Encounter - Abi Galicia MSW - 12/13/2024 12:25 PM EDT Scott called and left patient message in regards to follow up on discussion of medication cost issue. Scott will send patient My Chart message with patient assistance info. [facility]04-01-2025 Miscellaneous Notes* Telephone Encounter - Abi Galicia MSW - 12/13/2024 12:25 PM EDT Scott called and left patient message in [...] been denied. Patient reports currently working for [employer]. No longer has her Medicaid due to this. Patient notes that she has reapplied for Medicaid, needs to submit documents to finalize her Medicaid application with [employer]. This Sw mentioned checking with [employer] for help with medication cost needs. Patient states I do not go to [employer]. This Sw will review patient medication listing and call patient back next week with any patient assistance program options documented in this encounterUniversity [facility]als St. [facility]-2025 Telephone encounter Note * Telephone Encounter - Abi Galicia MSW - 12/13/2024 10:40 AM EDT Sw reviewed patient medication list. Patient medications show up on Rx Outreach. There is a cost tomedications on Rx Outreach. Sw can let patient know this information. [facility]03-31-2025 Hospital Discharge instructions* Discharge Instructions* Fay Kevin [...] seen a soon as possible by her PRESS MANAGER. I am going to send you with something to have on hand for pain and nausea. Please take these as prescribed and return to the emergency department should anything change or worsen. * Attachments The following attachments cannot be sent through Care Everywhere. * Chronic Pelvic Pain Discharge Instructions (British) documented in this [facility]03-31-2025 Emergency department Note* Fay Kevin PA-C - [...] most recently around 2 weeks ago at [place] and had a negative CT at that time. States this most recent flare of abdominal pain has been ongoing for the last couple of days with associated nausea. No actual episodes of emesis. No fevers, but does endorse chills. No dysuria, hematuria, urgency, or frequency, but does have history of renal stones. Tried to schedule an appointment with her PRESS MANAGER today, but when she called the nurse [...] Problem Relation Name Age of Onset Other (73050) Mother blood clots Hyperlipidemia Mother High Blood Pressure Mother SOCIAL HISTORY Social History Socioeconomic History Marital status: Tobacco Use Smoking status: Every Day Current packs/day: 0.50 Types: Cigarettes Smokeless tobacco: Never Substance and Sexual Activity Alcohol use: Yes Alcohol/week: 0.0 standard drinks of alcohol Drug use: Never Social Drivers of Health Financial Resource Strain: Patient Declined (12/14/2023) Received from [facility] Overall Financial Resource Strain (CARDIA) Difficulty of Paying Living Expenses: Patient declined Food Insecurity: Patient Declined (12/14/2023) Received from [facility] Hunger Vital Sign Worried About Running Out of Food in the Last Year: Patient declined Ran Out of Food in the Last Year: Patient declined Transportation Needs: Patient Declined (12/14/2023) Received from [facility] PRAPARE - Transportation Lack of Transportation (Medical): Patient declined Lack of Transportation (Non-Medical): Patient declined Physical Activity: Patient Declined (12/14/2023) Received from [facility] Exercise Vital Sign Days of Exercise per Week: Patient declined Minutes of Exercise per Session: Patient declined Stress: No Stress Concern Present (11/15/2020) Received from [facility], [facility] of Occupational Health - Occupational Stress Questionnaire Feeling of Stress : Only a little Social Connections: Unknown (12/14/2023) Received from [facility] Social Connection and Isolation Panel [NHANES] Active Member of Clubs or Organizations: Patient declined Marital Status: Patient declined Housing Stability: Patient Declined (12/14/2023) Received from [facility] Housing Stability Vital Sign Unable to Pay [...] Culture. Procedure Abnormality Status --------- ------ Complete Urinalysis[[id number]] Normal Final result Please view results for [...] tablet 1 tablet (1 tablet Oral Given 12/12/241728) I independently evaluated the patient with supervising [...] with prescription for Zofran, short course of Raymond, do feel she is appropriate for outpatient management. Recommended that she call her primary care provider to schedule close outpatient follow-up, as well as her PRESS MANAGER today or first thing tomorrow morning. She [...] PATIENT REFERRED TO: Marcelino Albert MD [address] [facility] 2ND FLOOR [facility] [id number] In 2 days [facility] [address] [address] As needed, If symptoms worsen DISCHARGE MEDICATIONS: Discharge Medication List as of 12/12/2024 4:55 PM START taking these medications Details HYDROcodone-acetaminophen (Raymond) 5-325 MG tablet Take 1 tablet by [...] Fay Kevin PA-C 12/12/241945 documented in this [facility]03-31-2025 Physician Emergency department Note* Fay Kevin PA-C [...] most recently around 2 weeks ago at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 03/11/2010. Calculus of kidney 05/17/[address] Nicolas: Hospitalized age 20, and again later -- no procedures so far ([facility], [place], [facility]) Cancer (HCC) COVID-19 virus infection 10/07/202109/2021 Diverticulosis [...] every 8 hours as needed for nausea/vomiting. owxoxl-ktuqnhrl-jtnieqa (CREON 3) 3,000-9,500- 15,000 unit delayed release capsule Take 1 capsule by mouth three times a day with meals. gabapentin (NEURONTIN) 400 mg capsule Take 1 capsule by mouth every 12 hours. diphenhydrAMINE (BENADRYL) 25 mg capsule Take 50 mg by mouth at bedtime as needed. Bcpuaufbnoczbjc-Jpplaggoc-DG (BROMFED DM) 2-30-10 mg/5 mL syrup Take 5 mL by mouth four times a day as needed. (Patient not taking: Reported on 10/03/2024) cyclobenzaprine (FLEXERIL) 10 mg tablet Take 1 tablet by mouth three times a day as needed. (Patient not taking: Reported on 10/03/2024) fluticasone-salmeterol (WIXELA INHUB) 500-50 mcg/dose dsdv Inhale 1 Puff as instructed two times a day. (Melyssaen (more content not included)...[facility]01-20-2025 History of Present illness Narrative* Silverio Haley MD - 10/03/2024 10:16 AM EST Images from the original note were not included. This note was created using NXT-ID. Subjective Sally Vargas is a 44 year old female. Patient presents with: ED Follow-up: [facility] ED follow up 09/24/2024 for left [...] July. She has not yet seen a telecommunications cable jointer for asthma follow-up. Additionally, Sally reports severe [...] Benign liver cyst 05/24/2010 CT scan at [facility] 11/2009 and 04/2010 showe 4 mm increase in size. No pain. No elevated LFTs on 03/11/2010. Calculus of kidney 05/17/[address] Nicolas: Hospitalized age 20, and again later -- no procedures so far ([facility], [facility]) Cancer (HCC) COVID-19 virus infection 10/07/202109/2021 Diverticulosis [...] every 8 hours as needed for nausea/vomiting. gtbuoc-aqpushgf-hcsuoje (CREON 3) 3,000-9,500- 15,000 unit delayed release capsule Take 1 capsule by mouth three times a day with meals. gabapentin (NEURONTIN) 400 mg capsule Take 1 capsule by mouth every 12 hours. diphenhydrAMINE (BENADRYL) 25 mg capsule Take 50 mg by mouth at bedtime as needed. Cobbwhyootyowoy-Mdydqhfgy-VR (BROMFED DM) 2-30-10 mg/5 mL syrup Take [...] which included preparing to see the patient, mtbg-sk-wfmu patient care, completing clinical documentation, obtaining and/or reviewing separately obtained history, performing a medically appropriate examination, counseling and educating the pat ient/family/caregiver, ordering medications, tests, or procedures, independently interpreting results (not separately reported), and communicating results to the patient/family/caregiver. Silverio Haley MD documented in this encounterUniversity Hospitals St. John [facility] Center01-11-2025 Hospital Discharge instructions Patient Education 09/24/2024 12:58:20 [...] for 8 hours or increasing bladder pressure 2563-4497 [employer]. [address] [place] [address]. All rights reserved. This information is not intended as a substitute for professional medical care. Always follow yourfostoria city hospitalcare professional's instructions. 09/24/2024 12:58:07 Flank Pain, Uncertain [...] worse Numbness or weakness in a leg 9929-5448 [employer]. [address] [place] [address]. All rights reserved. This information is not intended as a substitute for professional medical care. Always follow yourhealthcare professional's instructions. Follow Up Care 09/24/2024 10:27:38 With:SILVERIO HALEY Address: [address] [place] [id number] [facility] (1) When:2-4 days Comments:Schedule appointment as soon as possibleReturn to ED if symptoms worsenLimit activityIf nausea start with Pedialyte for 4 to 6 hours then brat diet then back to fullMay use Tylenol for pain and cyclobenzaprine for muscle spasm [facility] 01-11-2025 Emergency department Discharge summary Discharge Instructions Thank you for allowing [facility] to assist you with your healthcare needs. The following is importantdischarge information regarding your hospital visit. Diagnosis from Today's Visit Flank pain What to Do Next Instructions from Your Care Team No qualifying data available. Post Acute Orders No qualifying data available. You Need to Schedule the Following Appointments Follow Up with SILVERIO HALEY When:Within 2-4 days Where:[address] [place] [address]- [facility] (1) Additional Information: Schedule appointment as soon [...] or retail pharmacies. Medication Leaflets cyclobenzaprine (gabriel gould preen) Amrix, Fexmid What is the most important information [...] may report side effects to FDA at 1-535-ZAX-8712. What other drugs will affect cyclobenzaprine? Using [...] drugs may affect cyclobenzaprine, including prescription and eler-gdb-qseqwcu medicines, vitamins, and herbal products. Not all [...] to ensure that the information provided by [employer]. ('[employer]') is accurate, up-to-date, and complete, but no guarantee is made to that effect. Drug information contained herein may be time sensitive. [employer] information has been compiled for use by healthcare practitioners and consumers in the [place] and therefore [employer] does not warrant that uses outside of the [place] are appropriate, unless specifically indicated otherwise. [employer] drug information does not endorse drugs, diagnose patients or recommend therapy. [employer] drug information isan informational resource designed to [...] effective or appropriate for any given patient. [employer] does not assume any responsibility for any aspect of healthcare administered with the aid of information [employer] provides. The information contained herein is not intended to cover all possible uses, directions, precautions, warnings, drug interactions, allergic reactions, or adverse effects. If you have questions about the drugs you are taking, check with your doctor, nurse or pharmacist. Copyright 5532-8042 [employer]. Version: 7.. Revision Date: 04/17/2023. Education Materials Kidney Stone, [...] for 8 hours or increasing bladder pressure 9439-8198 [employer]. [address] [place] [address]. All rights reserved. This information is not [...] worse Numbness or weakness in a leg 9796-7551 [employer]. [address] [place] [address]. All rights reserved. This information is not intended as a substitute for professional medical care. Always follow yourhealthcare professional's instructions. Additional Information VACCINATE! IT SAVES LIVES! Members of the community who have not yet received the COVID-19 vaccine and would like to receive it can visit one of [facility] vaccine clinics. There are many vaccine clinic locations within the [facility]. For locations and available times, please visit www.gettheshot.coronavirus.[place].gov/. It is important to note that some COVID mobile vaccine clinics are held outdoors and may be canceled in rainy or stormy conditions. To learn more about pediatric vaccinations (ages 5-11), we invite you to visit the [facility] webpage. https://www.[email or web address]/pages/3020-Xidqp-Xrqlfcjzmcd-Rtqqdnymxl-Boqud-Qmn stions.htmlTo learn more about the COVID-19 vaccine, we invite you to visit the CDC website for a list of frequently asked questions. https://www.cdc.gov/coronavirus/2019-ncov/vaccines/faq.html [facility] Patient Portal Access Instructions: Stay connected with your healthcare team and access your personal medical information anytime with the [facility] Patient Portal. If you would like a full copy of your medical records please contact the [facility] Medical Records Department Thursday through Thursday between 8a.m. and 4:30p.m. Please follow the directions below to access the portal: 1.Access the email account you provided upon registration to the [facility].2.Look for an invitation email from [facility].3.Open the email and access the invitation link: Accept Invitation to [facility]4.Fill in the required xiong to create your account. Sign into [email or web address] with your username and password that you [...] you will allow to register on the [facility] Patient Portal for access to your information. You can also access the [facility] Patient Portal on the [employer]. Simply click on Health Records under MRO and then click on the [employer] logo. HOW TO SAFELY DISPOSE OF PRESCRIPTION [...] Call your local pharmacy or go to [email or web address] to find one close to you.3.Make use of household items: Use cat litter or old coffee grounds to dispose medications if other options arenot available. Mix your drugs with these household products, seal them in an airtight container andthrow it into the garbage. Call [facility]: [phone] to be sure your drugs can be [...] aware that I should contact my doctor. 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 Signature: Date/Time: Relationship to Patient: Witness Name/Signature: Date/Time: [facility] [id number] Note* Exam Date Time Procedure Performing Provider Status 09/24/24 11:[address] Abdomen/Pelvis w/o Contrast MIHIR ESCOBAR DO; Auth (Verified) [id number] ORIGINAL EXAMINATION: Exam Title:CT OF THE ABDOMEN AND PELVIS WITHOUT CONTRAST Completed Time: 09/24/2024 11:58 am Procedure Description:CT ABDOMEN/PELVIS WITHOUT CONTRAST COMPARISON: February 04, 2024 CT abdomen pelvis HISTORY: ORDERING SYSTEM PROVIDED HISTORY: Reason for Exam: LEFT flank [id number]^ TECHNIQUE: Noncontrast CT performed according to protocol [...] or pneumoperitoneum. Terminal ileum normal in appearance. Jagj-hc-ymscmxka amount of stool throughout the colon. No enlarged lymph nodes. No free fluid. Hysterectomy. Bladder contour normal. Obese body habitus. Mild discogenic change thoracic spine. No gross acute osseous process. IMPRESSION:[] 1. No acute process demonstrated. 2. Other findings described above. Interpreted by: Mihir Escobar DO Preliminary Report By: Mihir Escobar DO Electronically signed By Mihir Escobar DO Dictated Date: 09/24/2024 12:09:26 PM Prelim Date: 09/24/2024 12:14:21 PM Sign Date: 09/24/2024 12:14:21 PM Ordering Provider: [facility]01-08-2025 NoteHNO ID: [id number] Author: JAJA CHAHAL APRN.SALES MERCHANDISING SPECIALIST Service: ? Author Type: Nurse Practitioner Type: [...] Benign liver cyst 05/24/2010 CT scan at [facility] 11/2009 and 04/2010 showe 4 mm increase in size. No pain. No elevated LFTs on 03/11/2010. Calculus of kidney 05/17/[address] Nicolas: Hospitalized age 20, and again later -- no procedures so far ([facility], [facility]) Cancer (HCC) COVID-19 virus infection 10/07/202109/2021 Diverticulosis [...] every 8 hours as needed for nausea/vomiting. izajbt-ianprlfw-tdnbiyg (CREON 3) 3,000-9,500- 15,000 unit delayed release capsule Take 1 capsule by mouth three times a day with meals. gabapentin (NEURONTIN) 400 mg capsule Take 1 capsule by mouth every 12 hours. diphenhydrAMINE (BENADRYL) 25 mg capsule Take 50 mg by mouth at bedtime as needed. Pzzrynbkjuihmob-Ibstwupbm-YA (BROMFED DM) 2-30-10 mg/5 mL syrup Take [...] Maternal Grandfather Pancreatic Cance (more content not included)...[facility] 09-21-2024 History of Present illness Narrative* Jaja Chahal, YARD ENGINEER.[facility] - 09/21/2024 10:40 AM EST CC: Patient [...] Benign liver cyst 05/24/2010 CT scan at [facility] 11/2009 and 04/2010 showe 4 mm increase in size. No pain. No elevated LFTs on 03/11/2010. Calculus of kidney 05/17/[address] Nicolas: Hospitalized age 20, and again later -- no procedures so far ([facility], [facility]) Cancer (HCC) COVID-19 virus infection 10/07/202109/2021 Diverticulosis [...] every 8 hours as needed for nausea/vomiting. nnurjt-peebdwqb-lkrtkwq (CREON 3) 3,000-9,500- 15,000 unit delayed release capsule Take 1 capsule by mouth three times a day with meals. gabapentin (NEURONTIN) 400 mg capsule Take 1 capsule by mouth every 12 hours. diphenhydrAMINE (BENADRYL) 25 mg capsule Take 50 mg by mouth at bedtime as needed. Drqpkmjlntnwiiw-Dyycpjwag-NA (BROMFED DM) 2-30-10 mg/5 mL syrup Take [...] Wt 90.8 kg (200 lb 2.8 oz) LMP110/10/2005 SpO2 99% BMI 37.31 kg/m Physical Exam Vitals reviewed. Constitutional: General: She is not in acute distress. Appearance: She is ill-appearing. She is not toxic-appearing. HENT: Head: Normocephalic and atraumatic. Right Ear: Tympanic membrane normal. Left Ear: Tympanic membrane normal. Nose: Right Sinus: Maxillary sinus tenderness present. No frontal sinus tenderness. Left Sinus: Maxillary sinus tenderness present. No frontal sinus tenderness. Mouth/Throat: Lips: [place]. Mouth: Mucous membranes are moist. Pharynx: Oropharynx [...] Patient agreeable to treatment plan. Jaja Chahal APRN.MANUELITO documented in this encounterUniversity Hospitals St. [facility]01-08-2025 Telephone encounter Note * Telephone Encounter - [...] severe symptoms as discussed. Renetta Hernández RN [facility]01-08-2025 Miscellaneous Notes* Telephone Encounter - Renetta Hernández [...] discussed. Renetta Hernández RN documented in this encounterUniversity Hospitals St. John [facility] Center12-18-2024 Telephone encounter Note * Telephone Encounter - Lexy Desouza LPN - 08/31/2024 10:16 AM EST Pt cancelled apt. I called to see if she needed to reschedule and she reports no does not need to reschedule. Lexy Desouza LPN [facility]12-18-2024 Miscellaneous Notes* Telephone Encounter - Lexy Desouza [...] provider/team. Please advise pt. documented in this encounterUniversity Hospitals St. John [facility] Center12-16-2024 Telephone encounter Note * Telephone Encounter - [...] for 08-30-24 with provider/team. Please advise pt. [facility]12-09-2024 Telephone encounter Note* Telephone Encounter - Kristen Andrade LPN - 08/22/2024 5:29 PM EST Patient notified of providers recommendations and verbalized understanding. Patient declines ER visit. She states they are not blue at this time but will schedule an appointment if blue lips returns [facility]12-09-2024 Miscellaneous Notes* Telephone Encounter - Kristen Andrade [...] lip is blue. Patient was seen at [facility] ER on 08/21/2024 for back pain. No mention of lower blue lips in ER notes. Please review and advise, Paradise Haley RN documented in this encounterUniversity Hospitals St. John [facility] Center12-09-2024 Telephone encounter Note * Telephone Encounter - Gretchen Newton APRN.CNS - 08/22/2024 4:54 PM EST Noted agree, if signs of hypoxia should go to ER. [facility]12-09-2024 Telephone encounter Note* Telephone Encounter - Paradise [...] lip is blue. Patient was seen at [facility] ER on 08/21/2024 for back pain. No mention of lower blue lips in ER notes. Please review and advise, Paradise Haley RN [facility]11-14-2024 History of Present illness Narrative* Mini Bunch, RT(R) - 07/28/2024 7:20 PM EST Radiology [...] PATIENT PRESENTS WITH AN IMPLANTABLE OR ATTACHED SUPERVISOR PROPERTIES: No RADIOLOGY DEPARTMENT: General X-ray: Exam(s) Completed: Chest X-Ray PERIPHERAL IV DATA: Not applicable SIGNED BY: RT Belinda(Fransisco) July 28, 2024 7:13 PM documented in this encounterUniversity Hospitals St. John Medical [facility]24 NoteHNO ID: [id number] Author: MINI BUNCH RT(R) Service: ? Author Type: Internal Wholesaler Type: Progress Notes Filed: 07/28/2024 19:20 Note [...] PATIENT PRESENTS WITH AN IMPLANTABLE OR ATTACHED SUPERVISOR PROPERTIES: No RADIOLOGY DEPARTMENT: General X-ray: Exam(s) Completed: Chest X-Ray PERIPHERAL IV DATA: Not applicable SIGNED BY: RT Belinda(Fransisco) July 28, 2024 7:[address] [facility]11-14-2024 NoteHNO ID: [id number] Author: JONAHTAN BRUCE APRN.SALES MERCHANDISING SPECIALIST Service: ? Author Type: Nurse Practitioner Type: [...] Benign liver cyst 05/24/2010 CT scan at [facility] 11/2009 and 04/2010 showe 4 mm increase in size. No pain. No elevated LFTs on 03/11/2010. Calculus of kidney 05/17/[address] Nicolas: Hospitalized age 20, and again later -- no procedures so far ([facility], [facility]) Cancer (HCC) COVID-19 virus infection 10/07/202109/2021 Diverticulosis [...] every 8 hours as needed for nausea/vomiting. nndycf-zribtfqt-xqqruzs (CREON 3) 3,000-9,500- 15,000 unit delayed release [...] 4 hours as neede (more content not included)...[facility]11-14-2024 History of Present illness Narrative* Jonathan Bruce APRN.[facility] - 07/28/2024 6:58 PM EST CC: Patient [...] Benign liver cyst 05/24/2010 CT scan at [facility] 11/2009 and 04/2010 showe 4 mm increase in size. No pain. No elevated LFTs on 03/11/2010. Calculus of kidney 05/17/[address] Nicolas: Hospitalized age 20, and again later -- no procedures so far ([facility], [facility]) Cancer (HCC) COVID-19 virus infection 10/07/202109/2021 Diverticulosis [...] esophagitis, 2 cm hiatal hernia EGD W/O [facility] SPEC VARICIES INJ 05/28/2020 LIG/TRNSXJ FLP TUBE [...] every 8 hours as needed for nausea/vomiting. nfqapk-ncjccigr-jjzwydh (CREON 3) 3,000-9,500- 15,000 unit delayed release [...] had a zpak and Augmentin already. - XDWKSZHXNQLTVUK-NIGXLCHVKRGULMP-DX 2 MG-30 MG-10 MG/5 ML ORAL SYRUP Prescription instructions reviewed with patient as applicable. Potential red flag symptoms discussed with the patient. Reviewed appropriate action plan to take if red flag symptoms occur. Patient agreeable to treatment plan. Jonathan Bruce APRN.MANUELITO documented in this encounterUniversity Hospitals St. [facility]11-14-2024 Telephone encounter Note * Telephone Encounter - Jesica Baker MA - 07/28/2024 6:17 PM EST Spoke to patient and advised provider note below. Patient declined appointment said she will just deal with the coughing and ended call. Jesica Baker MA [facility]11-14-2024 Miscellaneous Notes* Telephone Encounter - Jesica Baker [...] since Gretchen is not able. From triage: [facility] Pharmacy called back. I tried to [...] filled today * Telephone Encounter - Nunu Carcamo RN [...] fill hydrocodone cough medicine. Call placed to [facility] and spoke to Oh who reports there is an issue with the NPI number for provider. Insurance won't allow the fill as they don't have information on file. Oh said he sent something to prescriber as well. Ivanna Torre RN documented in this encounterUniversity Hospitals St. [facility]11-14-2024 Telephone encounter Note * Telephone Encounter - [...] THE OFFICE for evaluation of ongoing cough. [facility]11-14-2024 Telephone encounter Note* Telephone Encounter - Kristen Andrade LPN - 07/28/2024 5:15 PM EST Patient is very upset and crying routed to Dr. Cleaning to see if her would ordering since Gretchen is not able. From triage: [facility] Pharmacy called back. I tried to help but they says they have Gretchen's NPI and CARLOS number but their system is telling them it is not registered with Medicaid. They said they need to talk to Gretchentamara Casiano. [facility]11-14-2024 Telephone encounter Note* Telephone Encounter - Kristen Andrade LPN - 07/28/2024 4:53 PM EST Attempted to contact pharmacy regarding problem with NPI number for provider but they are not answering, had to leave a voice mail and ask to call back MEME as patient is needing her prescription filled today [facility]11-14-2024 Telephone encounter Note* Telephone Encounter - Nunu Carcamo, VIN - 07/28/2024 4:32 PM EST Patient phoned upset she cannot get the cough medicine. Reports she hasn't slept in 2 days d/t cough. Asking if Gretchen can get the number straightened out soon. See message below- a problem with NPI [facility]11-14-2024 Telephone encounter Note* Telephone Encounter - Ivanna Torre RN - 07/28/2024 4:26 PM EST Patient calls to report that pharmacy won't fill hydrocodone cough medicine. Call placed to [facility] and spoke to Oh who reports there is an issue with the NPI number for provider. Insurance won't allow the fill as they don't have information on file. Oh said he sent something to prescriber as well. Ivanna Torre RN [facility]11-14-2024 Telephone encounter Note* Telephone Encounter - Lexy Desouza LPN - 07/28/2024 4:02 PM EST Spoke with pt and transferred her to get testing scheduled. Lexy Desouza LPN [facility]11-14-2024 Miscellaneous Notes* Telephone Encounter - Lexy Desouza LPN - 07/28/2024 4:02 PM EST Spoke with pt and transferred her to get testing scheduled. Lexy Desouza LPN * Telephone Encounter - Ivanna Torre RN - 07/28/2024 3:34 PM EST Patient returns call and notified medication was sent to [facility]. Patient requested to be transferred to schedule spirometry and lung volume testing. Disconnected line before getting transferred. Ivanna Torre RN * Telephone Encounter - Gretchen Newton APRN.CNS - 07/28/2024 3:30 PM EST ok * [...] requesting a call back with an update. [phone]. Thank you. * Telephone Encounter - Cara Hernandez LPN - 07/28/2024 10:33 AM EST Patient is still coughing and is requesting more cough syrup. [facility] Prescription Refill Information The patient has been [...] 28, 2024 10:36 AM documented in this encounterUniversity Hospitals St. [facility]11-14-2024 Telephone encounter Note * Telephone Encounter - Ivanna Torre RN - 07/28/2024 3:34 PM EST Patient returns call and notified medication was sent to [facility]. Patient requested to be transferred to schedule spirometry and lung volume testing. Disconnected line before getting transferred. Ivanna Torre RN [facility]11-14-2024 Telephone encounter Note* Telephone Encounter - Gretchen Newton APRN.CNS - 07/28/2024 3:30 PM EST ok [facility]11-14-2024 Telephone encounter Note* Telephone Encounter - Renetta Hernández RN - 07/28/2024 2:26 PM EST Patient calling in to ask if Merced Hutchinson MANUELITO is in office today and can review [...] requesting a call back with an update. [phone]. Thank you. [facility]11-14-2024 Telephone encounter Note* Telephone Encounter - Cara Hernandez LPN - 07/28/2024 10:33 AM EST Patient is still coughing and is requesting more cough syrup. [facility] [place] Prescription Refill Information The patient has been [...] Hernandez LPN July 28, 2024 10:36 AM [facility]11-06-2024 NoteHNO ID: [id number] Author: SILVERIO HALEY MD Service: ? Author Type: Physician Type: Progress Notes Filed: 07/25/2024 22:06 Note Text: VIRTUAL VISIT PROGRESS NOTE This is a virtual visit using [employer] Video Visit. It required patient-provider interaction for the medical decision making as documented below. I have communicated my name and active licensure. The patient's identity and physical location were verified at the time of this visit. Either the patient or their legal petroleum products sales representative has been informed of the risks [...] Benign liver cyst 05/24/2010 CT scan at [facility] 11/2009 and 04/2010 showe 4 mm increase in size. No pain. No elevated LFTs on 03/11/2010. Calculus of kidney 05/17/[address] Nicolas: Hospitalized age 20, and again later -- no procedures so far ([facility], [facility]) Cancer (HCC) COVID-19 virus infection 10/07/202109/2021 Diverticulosis [...] Cigarettes Start date: 01/12/2014 (more content not included)...[facility]11-06-2024 History of Present illness Narrative* Silverio Haley MD - 07/20/2024 12:07 PM EST VIRTUAL VISIT PROGRESS NOTE This is a virtual visit using [employer] Video Visit. It required patient- provider interaction for the medical decision making as documented below. I have communicated my name and active licensure. The patient's identity and physical location wereverified at the time of this visit. Either the patient or their legal petroleum products sales representative has been informed of the risks [...] Benign liver cyst 05/24/2010 CT scan at [facility] 11/2009 and 04/2010 showe 4 mm increase in size. No pain. No elevated LFTs on 03/11/2010. Calculus of kidney 05/17/[address] Nicolas: Hospitalized age 20, and again later -- no procedures so far ([facility], [facility]) Cancer (HCC) COVID-19 virus infection 10/07/202109/2021 Diverticulosis [...] every 8 hours as needed for nausea/vomiting. xhrcht-afttbsse-xfnverx (CREON 3) 3,000-9,500- 15,000 unit delayed release [...] excessive drowsiness occurs. - Prescription sent to [facility] in [place]. There are no Patient Instructions on file for this visit. Silverio Haley MD documented in this encounterUniversity Hospitals St. [facility]11-06-2024 Telephone encounter Note * Telephone Encounter - Sallie Benitez LPN - 07/20/2024 7:19 AM EST Appointment scheduled 07/20/24 at 10:40. Detailed message left for patient. [facility]11-06-2024 Miscellaneous Notes* Telephone Encounter - Sallie Benitez LPN - 07/20/2024 7:19 AM EST Appointment scheduled 07/20/24 at 10:40. Detailed message left for patient. * Telephone Encounter - Silverio Haley MD - 07/19/2024 8:37 PM EST There is an opening 07/20 at 10/40. [...] advise, Paradise Haley RN documented in this encounterUniversity Hospitals St. [facility]11-05-2024 Telephone encounter Note * Telephone Encounter - Silverio Haley MD - 07/19/2024 8:37 PM EST There is an opening 07/20 at 40. Can discuss muscle relaxant then and whether to add [facility]11-05-2024 Telephone encounter Note* Telephone Encounter - Paradise [...] Please review and advise, Paradise Haley RN [facility]10-28-2024 NoteHNO ID: [id number] Author: SILVERIO HALEY MD Service: ? Author Type: Physician Type: Progress Notes Filed: 07/11/2024 17:33 Note Text: VIRTUAL VISIT PROGRESS NOTE This is a virtual visit using [employer] Video Visit. It required patient-provider interaction for the medical decision making as documented below. I have communicated my name and active licensure. The patient's identity and physical location were verified at the time of this visit. Either the patient or their legal petroleum products sales representative has been informed of the risks [...] Benign liver cyst 05/24/2010 CT scan at [facility] 11/2009 and 04/2010 showe 4 mm increase in size. No pain. No elevated LFTs on 03/11/2010. Calculus of kidney 05/17/[address] Nicolas: Hospitalized age 20, and again later -- no procedures so far ([facility], [facility]) Cancer (HCC) COVID-19 virus infection 10/07/202109/2021 Diverticulosis [...] Maternal Uncle Coronary Arter (more content not included)...[facility] 07-11-2024 History of Present illness Narrative* Silverio Haley MD - 07/11/2024 5:02 PM EDT VIRTUAL VISIT PROGRESS NOTE This is a virtual visit using [employer] Z[employer] Video Visit. It required patient- provider interaction for the medical decision making as documented below. I have communicated my name and active licensure. The patient's identity and physical location wereverified at the time of this visit. Either the patient or their legal petroleum products sales representative has been informed of the risks [...] Benign liver cyst 05/24/2010 CT scan at [facility] 11/2009 and 04/2010 showe 4 mm increase in size. No pain. No elevated LFTs on 03/11/2010. Calculus of kidney 05/17/[address] Nicolas: Hospitalized age 20, and again later -- no procedures so far ([facility], [place] [facility]) Cancer (HCC) COVID-19 virus infection 10/07/202109/2021 Diverticulosis [...] every 8 hours as needed for nausea/vomiting. zndvlu-spvfxjwl-kcvuppg (CREON 3) 3,000-9,500- 15,000 unit delayed release [...] quit. Silverio Haley MD documented in this encounterUniversity Hospitals St. [facility]10-15-2024 Telephone encounter Note * Telephone Encounter - Ivanna Torre RN - 06/28/2024 4:48 PM EDT See previous TE. Medication to be filled on 06/30/2024 as previously ordered. Ivanna Torre RN [facility]10-15-2024 Miscellaneous Notes* Telephone Encounter - Ivanna Torre [...] 06/29/24? Please call patient with update at [phone]. Thank you. documented in this encounterUniversity Hospitals St. [facility]10-15-2024 Telephone encounter Note * Telephone Encounter - Ivanna Torre RN - 06/28/2024 4:47 PM EDT Patient returns call and notified of below. Patient verbalizes understanding. Aware prescription can be picked up on 06/30/2024. Ivanna Torre RN [facility]10-15-2024 Miscellaneous Notes* Telephone Encounter - Ivanna Torre [...] to check status of request. she uses [facility] for her pharmacy. * Telephone Encounter - [...] pt with 's message. documented in this encounterUniversity Hospitals St. [facility]10-15-2024 Telephone encounter Note * Telephone Encounter - [...] 06/29/24? Please call patient with update at [phone]. Thank you. [facility]10-15-2024 Telephone encounter Note* Telephone Encounter - Silverio [...] 30, 2024. Authorizing Provider: SILVERIO HALEY MD [facility]10-15-2024 Telephone encounter Note* Telephone Encounter - Brittnee Barraza LPN - 06/28/2024 3:36 PM EDT Patient aware PCP to address. Brittnee Barraza LPN [facility]10-15-2024 Telephone encounter Note* Telephone Encounter - Brittnee Barraza LPN - 06/28/2024 3:13 PM EDT Made copy of TE and placed on Urgent clipboard to bring to PCP attention. Brittnee Barraza LPN [facility]10-15-2024 Telephone encounter Note* Telephone Encounter - Paradise Haley RN - 06/28/2024 1:53 PM EDT Patient calls to see the status of prescription request. Paradise Haley RN [facility]10-15-2024 Telephone encounter Note* Telephone Encounter - Edwina Tatum LPN - 06/28/2024 12:34 PM EDT Pt called back in to check on status of rx. Edwina Tatum LPN [facility]10-15-2024 Telephone encounter Note* Telephone Encounter - Whit Guardado LPN - 06/28/2024 10:23 AM EDT Patient calling back to check status of request. she uses [facility] for her pharmacy. [facility]10-14-2024 Telephone encounter Note* Telephone Encounter - Edwina [...] has no other complaints. Call pt with dr's message. [facility]10-08-2024 Instructions* Patient Instructions* Silverio Haley MD - [...] which can trigger coughing. documented in this encounterUniversity Hospitals St. [facility]10-08-2024 History of Present illness Narrative* Silverio Haley MD - 06/21/2024 5:03 PM EDT VIRTUAL VISIT PROGRESS NOTE This is a virtual visit using [employer] Video Visit. It required patient- provider interaction for the medical decision making as documented below. I have communicated my name and active licensure. The patient's identity and physical location wereverified at the time of this visit. Either the patient or their legal petroleum products sales representative has been informed of the risks [...] Benign liver cyst 05/24/2010 CT scan at [facility] 11/2009 and 04/2010 showe 4 mm increase in size. No pain. No elevated LFTs on 03/11/2010. Calculus of kidney 05/17/[address] Nicolas: Hospitalized age 20, and again later -- no procedures so far ([facility], [place] [facility]) Cancer (HCC) COVID-19 virus infection 10/07/202109/2021 Diverticulosis [...] every 8 hours as needed for nausea/vomiting. vmzlun-hvtejwbo-unfsqhp (CREON 3) 3,000-9,500- 15,000 unit delayed release [...] inhaler, one puff BID; prescription sent to [facility]. - Discontinued codeine cough syrup due to [...] visit. Silverio Haley MD documented in this encounterUniversity Hospitals St. [facility]10-08-2024 NoteHNO ID: [id number] Author: SILVERIO HALEY MD Service: ? Author Type: Physician Type: Progress Notes Filed: 06/21/2024 17:35 Note Text: VIRTUAL VISIT PROGRESS NOTE This is a virtual visit using [employer]Chart Zoom Video Visit. It required patient-provider interaction for the medical decision making as documented below. I have communicated my name and active licensure. The patient's identity and physical location were verified at the time of this visit. Either the patient or their legal petroleum products sales representative has been informed of the risks [...] Benign liver cyst 05/24/2010 CT scan at [facility] 11/2009 and 04/2010 showe 4 mm increase in size. No pain. No elevated LFTs on 03/11/2010. Calculus of kidney 05/17/[address] Nicolas: Hospitalized age 20, and again later -- no procedures so far ([facility] [place], [facility]) Cancer (HCC) COVID-19 virus infection 10/07/202109/2021 Diverticulosis [...] Medications Medication Sig al (more content not included)...[facility]10-07-2024 Telephone encounter Note* Telephone Encounter - Kristen Andrade LPN - 06/20/2024 4:44 PM EDT No answer. Left providers message and ask to call office and ask to speak to a nurse with any questions or concerns [facility]10-07-2024 Miscellaneous Notes* Telephone Encounter - Kristen Andrade LPN - 06/20/2024 4:44 PM EDT No answer. Left providers message and ask to call office and ask to speak to a nurse with any questions or concerns * Telephone Encounter - Gretchen Newton APRN.CNS - 06/20/2024 4:35 PM EDT She can take an tckg-xls-kanmdla cough medicine such as delsym and take [...] advise. Edwina Tatum LPN documented in this encounterUniversity Hospitals St. [facility]10-07-2024 Telephone encounter Note * Telephone Encounter - Gretchen Newton APRN.CNS - 06/20/2024 4:35 PM EDT She can take an yfbr-ewd-ajoczzi cough medicine such as delsym and take Benadryl if she would like.Notes she declines to be seen due to transportation. Did she need to speak with social work regarding transportation? [facility]10-07-2024 Telephone encounter Note* Telephone Encounter - Paradise [...] Please review and advise, Paradise Haley RN [facility]10-07-2024 Telephone encounter Note* Telephone Encounter - Gretchen Newton APRN.CNS - 06/20/2024 3:08 PM EDT If she is not currently using albuterol inhaler every 6 hours would recommend doing so. Can add benzonatate to current medications. She has had 2 virtual visits for upper respiratory infection. She may want to come in to be checkedin the office. T [facility]10-07-2024 Telephone encounter Note* Telephone Encounter - Edwina [...] Please review and advise. Edwina Tatum LPN [facility]10-03-2024 Telephone encounter Note* Telephone Encounter - Silverio Haley MD - 06/16/2024 10:16 PM EDT Patient had VV with Gretchen Newton [facility]10-03-2024 Miscellaneous Notes* Telephone Encounter - Silverio Haley MD - 06/16/2024 10:16 PM EDT Patient had VV with Gretchen Newton * Telephone Encounter - Aleksander Couch MA - 06/16/2024 8:10 AM EDT Also TE regarding this. documented in this encounterUniversity Hospitals St. [facility]10-03-2024 History of Present illness Narrative* Gretchen Newton APRN.PROVIDER ENGAGEMENT EXECUTIVE - 06/16/2024 2:40 PM EDT Telemedicine Evaluation for COVID-19 Infection MyChart Zoom Video Visit was used for evaluation of this patient. I have communicated my name and active licensure. The patient's identity and physical location wereverified at the time of this visit. Either the patient or their legal petroleum products sales representative has been informed of the risks [...] - AZITHROMYCIN 250 MG TABLET Gretchen Newton APRN.PROVIDER ENGAGEMENT EXECUTIVE - Discussed symptom monitoring and supportive care - Red flag symptoms requiring follow up discussed 15 min in visit documented in this encounterUniversity Hospitals St. [facility] Center10-03-2024 NoteHNO ID: [id number] Author: GRETCHEN NEWTON APRN.PROVIDER ENGAGEMENT EXECUTIVE Service: ? Author Type: Nurse Specialist Type: Progress Notes Filed: 06/16/2024 15:52 Note Text: Telemedicine Evaluation for COVID-19 Infection MyChart Zoom Video Visit was used for evaluation of this patient. I have communicated my name and active licensure. The patient's identity and physical location were verified at the time of this visit. Either the patient or their legal petroleum products sales representative has been informed of the risks [...] - AZITHROMYCIN 250 MG TABLET Gretchen Newton APRN.PROVIDER ENGAGEMENT EXECUTIVE - Discussed symptom monitoring and supportive care - Red flag symptoms requiring follow up discussed 15 min in visitSumma Health [facility]10-03-2024 Telephone encounter Note* Telephone Encounter - Whit Guardado LPN - 06/16/2024 11:20 AM EDT Patient calling back wants to have virtual visit with INORGANIC CHEMIST. She is asking for prednisone, rx cough syrup, antibiotics rx. She was not happy with virtual visit with Jaja Chahal INORGANIC CHEMIST. She can not come in for in person appt, no transportation. Aware PCP and Merced Hutchinson INORGANIC CHEMIST are out of office today. Scheduled patient with Gretchen Newton INORGANIC CHEMIST at 240 pm for virtual visit today. [facility]10-03-2024 Miscellaneous Notes* Telephone Encounter - Whit Guardado LPN - 06/16/2024 11:20 AM EDT Patient calling back wants to have virtual visit with INORGANIC CHEMIST. She is asking for prednisone, rx cough syrup, antibiotics rx. She was not happy with virtual visit with Jaja Chahal INORGANIC CHEMIST. She can not come in for in person appt, no transportation. Aware PCP and Merced Hutchinson INORGANIC CHEMIST are out of office today. Scheduled patient with Gretchen Newton INORGANIC CHEMIST at 240 pm for virtual visit today. [...] calling she said had virtual visit with INORGANIC CHEMIST this morning, she was not given any rx. Patient said she has cough for past week, yellow secretions, no chest tightness, no fever, sore throat from post nasal drainage, patient said she can not sleep due to the cough. Patient asking for prednisone and cough syrup with codeine rx to be sent to [facility] pharmacy. Please advise documented in this encounterUniversity Hospitals St. [facility]10-03-2024 Telephone encounter Note * Telephone Encounter - [...] refuses appointment asks to have message resent. [facility]10-03-2024 Telephone encounter Note* Telephone Encounter - Aleksander Couch MA - 06/16/2024 8:10 AM EDT Also TE regarding this. [facility]10-02-2024 Telephone encounter Note* Telephone Encounter - Whit Guardado LPN - 06/15/2024 1:37 PM EDT Patient calling back asking for antibiotic rx also. Please advise [facility]10-02-2024 Telephone encounter Note* Telephone Encounter - Whit Guardado LPN - 06/15/2024 10:53 AM EDT Patient calling she said had virtual visit with [facility] this morning, she was not given any rx. Patient said she has cough for past week, yellow secretions, no chest tightness, no fever, sore throat from post nasal drainage, patient said she can not sleep due to the cough. Patient asking for prednisone and cough syrup with codeine rx to be sent to [facility] pharmacy. Please advise [facility]10-02-2024 NoteHNO ID: [id number] Author: JAJA CHAHAL APRN.SALES MERCHANDISING SPECIALIST Service: ? Author Type: Nurse Practitioner Type: Progress Notes Filed: 06/15/2024 10:55 Note Text: This Team Access Model visit is a virtual encounter. It required patient-provider interaction for the medical decision making as documented below. I have communicated my name and active licensure. The patient's identity and physical location were verified at the time of this visit. Either the patient or their legal petroleum products sales representative has been informed of the risks and benefits of -- and alternatives to -- treatment through a remote evaluation and consents to proceed with the evaluation remotely. Patient Location: [place] CC: Patient presents with: URI HPI: Sally [...] Benign liver cyst 05/24/2010 CT scan at [facility] 11/2009 and 04/2010 showe 4 mm increase in size. No pain. No elevated LFTs on 03/11/2010. Calculus of kidney 05/17/[address] Nicolas: Hospitalized age 20, and again later -- no procedures so far ([facility], [facility]) Cancer (HCC) COVID-19 virus infection 10/07/202109/2021 Diverticulosis [...] esophagitis, 2 cm hiatal hernia EGD W/O [facility] SPEC VARICIES INJ 05/28/2020 LIG/TRNSXJ FLP TUBE [...] every 8 hours as needed for nausea/vomiting. ivevfq-hpjcwkbd-bqucanr (CREON 3) 3,000-9,500- 15,000 unit delayed release capsule Take 1 capsule by mouth three times a day with meals (more content not included)...[facility]10-02-2024 History of Present illness Narrative* Danielle Chahalz M, YARD ENGINEER.SALES MERCHANDISING SPECIALIST - 06/15/2024 10:41 AM EDT This Team Access Model visit is a virtual encounter. It required patient- provider interaction for the medical decision making as documented below. I have communicated my name and active licensure. The patient's identity and physical location wereverified at the time of this visit. Either the patient or their legal petroleum products sales representative has been informed of the risks and benefits of -- and alternatives to -- treatment through a remote evaluation andconsents to proceed with the evaluation remotely. Patient Location: [place] CC: Patient presents with: URI HPI: Sally [...] Benign liver cyst 05/24/2010 CT scan at [facility] 11/2009 and 04/2010 showe 4 mm increase in size. No pain. No elevated LFTs on 03/11/2010. Calculus of kidney 05/17/[address] Nicolas: Hospitalized age 20, and again later -- no procedures so far ([facility]) Cancer (HCC) COVID-19 virus infection 10/07/202109/2021 Diverticulosis [...] every 8 hours as needed for nausea/vomiting. diycyb-vwctpnbl-zrfvsvl (CREON 3) 3,000-9,500- 15,000 unit delayed release [...] Patient agreeable to treatment plan. Jaja Chahal APRN.SALES MERCHANDISING SPECIALIST documented in this encounterUniversity Hospitals St. [facility]10-[facility]-2024 Telephone encounter Note * Telephone Encounter - Lara Mercado LPN - 06/15/2024 9:04 AM EDT Cough, congestion & sore throat per pt. Pt states she can not come in for an appt today & requested a VV. Pt states her friend's nurse tested her for strep throat & covid & both were negative. VV scheduled today 10:40am Lara Mercado LPN [facility]10-02-2024 Miscellaneous Notes* Telephone Encounter - Lara Mercado LPN - 06/15/2024 9:04 AM EDT Cough, congestion & sore throat per pt. Pt states she can not come in for an appt today & requested a VV. Pt states her friend's nurse tested her for strep throat & covid & both were negative. VV scheduled today 10:40am Lara Mercado LPN documented in this encounterUniversity [facility]als [facility]. [facility]09-27-2024 Telephone encounter Note * Telephone Encounter - Brittnee Barraza LPN - 06/10/2024 4:24 PM EDT Ready to go down to Med Rec. Brittnee Barraza LPN [facility]09-27-2024 Miscellaneous Notes* Telephone Encounter - Brittnee Barraza LPN - 06/10/2024 4:24 PM EDT Ready to go down to Med Rec. Brittnee Barraza LPN * Telephone Encounter - Ivanna Torre RN - 06/10/2024 12:28 PM EDT Patient returns call and reports that she will pickers material handlers order for ankle brace in medical records. Ivanna Torre RN * Telephone Encounter - Brittnee Barraza LPN - 06/10/2024 12:16 PM EDT Printed order for ankle brace was not given to patient before she left OV. Left message on answering machine as to whether to take Order to medical records for her to pickers material handlers, or mail it to her. Brittnee Barraza LPN documented in this encounterUniversity Hospitals St. [facility]09-27-2024 Telephone encounter Note * Telephone Encounter - Ivanna Torre RN - 06/10/2024 12:28 PM EDT Patient returns call and reports that she will pickers material handlers order for ankle brace in medical records. Ivanna Torre RN [facility]09-27-2024 Telephone encounter Note* Telephone Encounter - Brittnee Barraza LPN - 06/10/2024 12:16 PM EDT Printed order for ankle brace was not given to patient before she left OV. Left message on answering machine as to whether to take Order to medical records for her to pickers material handlers, or mail it to her. Brittnee Barraza LPN [facility]09-27-2024 Instructions* Patient Instructions* Silverio Haley MD - [...] symptoms do not improve. documented in this encounterUniversity Hospitals St. [facility] Center09-27-2024 NoteHNO ID: [id number] Author: SILVERIO HALEY MD Service: ? Author Type: Physician Type: Progress Notes Filed: 06/10/2024 12:10 Note Text: This note was created using Clueyter. Subjective Sally Vargas is a 43 year [...] Benign liver cyst 05/24/2010 CT scan at [facility] 11/2009 and 04/2010 showe 4 mm increase in size. No pain. No elevated LFTs on 03/11/2010. Calculus of kidney 05/17/[address] Nicolas: Hospitalized age 20, and again later -- no procedures so far ([facility]) Cancer (HCC) COVID-19 virus infection 10/07/202109/2021 Diverticulosis [...] every 8 hours as needed for nausea/vomiting. nqnihk-gtwxrzqq-fheqemy (CREON 3) 3,000-9,500- 15,000 unit delayed release [...] facility-administered medications for (more content not included)... [facility]09-27-2024 History of Present illness Narrative* Silverio Haley MD - 06/10/2024 11:30 AM EDT This note was created using Fotologriter. Subjective Sally Vargas is a 43 year [...] Benign liver cyst 05/24/2010 CT scan at [facility] 11/2009 and 04/2010 showe 4 mm increase in size. No pain. No elevated LFTs on 03/11/2010. Calculus of kidney 05/17/[address] Nicolas: Hospitalized age 20, and again later -- no procedures so far ([facility], [facility]) Cancer (HCC) COVID-19 virus infection 10/07/202109/2021 Diverticulosis [...] every 8 hours as needed for nausea/vomiting. hsnsdh-zijxlvze-otoevmt (CREON 3) 3,000-9,500- 15,000 unit delayed release [...] urology evaluation. - Recent CT scan at [facility] showed no signs of current kidney stones or infection. - Follow-up with urology to determine further management. Silverio Haley MD documented in this encounterUniversity Hospitals St. [facility]09-13-2024 Telephone encounter Note * Telephone Encounter - Silverio Haley MD - 05/27/2024 6:56 PM EDT Noted. Silverio Haley MD [facility]09-13-2024 Miscellaneous Notes* Telephone Encounter - Silverio Haley [...] now will leave medication as is. Ivanna Torre, RN * Telephone Encounter - Whit Guardado [...] advise Cara Hernandez LPN documented in this encounterUniversity Hospitals St. [facility]09-13-2024 Telephone encounter Note * Telephone Encounter - [...] leave medication as is. Ivanna Torre RN [facility]09-13-2024 [facility] Medical Records Department [address] [place] [address] History Physical Exam 05/27/24 1337 MR#: [id number] Acct: [id number] Name: BENJIShivaGIOVANNASALLY CHEPE Rep #: [id number] : 1980 43 From: Blue Rose DO PCP: Dr. Silverio Haley MD Status:[facility] Location: [place] [address] History and Physical Date of Admission: 05/27/24 [facility] [address] [place] [address] OFFICE VISIT Date of Service: 05/10/24 MR#: [id number] Acct: [id number] Name: SALLY VARGAS Rep #: [id number] : 1980 Provider: Blue Rose DO Age/Sex: 43/F Location: [facility] Status: Signed Intake Vital Signs 04/01/2415:13 Height 5 ft 1 in Intake Visit Reasons: Pancreas Pain Allergies Iodinated Contrast Media (CT) Allergy (Verified 04/01/24 15:13) Anaphylaxisketorolac tromethamine (From Toradol) Allergy (Verified 04/01/24 15:13) Rashmetronidazole (From Flagyl) Allergy (Verified 04/01/24 15:13) HivesPenicillins Allergy (Verified 04/01/24 15:13) Hivesdicyclomine (From Bentyl) Adverse Reaction (Mild, Verified 04/01/24 15:13) Hivesaspirin Adverse Reaction (Verified 04/01/24 15:13) Upset Stomach Medications ???Medication ???Instructions ???Recorded ???Confirmed ???Type gabapentin 400 mg capsule 400 mg PO TID PRN NEUROPATHY 10/03/20 05/10/24 History aripiprazole 10 mg tablet 10 mg PO DAILY DEPRESSION 10/25/23 05/10/24 History lorazepam 0.5 mg tablet 0.5 mg PO DAILY PRN ANXIETY #7 01/26/24 05/10/24 Rx tabs mesalamine 1.2 gram tablet,delayed 2.4 g (2 x 1.2 gram) PO DAILY 30 02/09/24 05/10/24 Rx release days #60 tabs trazodone 50 mg tablet 50 mg PO QHS 02/23/24 05/10/24 History hyoscyamine sulfate 0.125 mg 0.125 mg PO Q6H PRN abdominal 02/24/24 05/10/24 Rx disintegrating tablet discomfort #10 tabs metoclopramide HCl 10 mg tablet 10 mg PO Q12H PRN PRN nausea and 02/24/24 05/10/24 Rx vomiting #8 tabs prednisone 10 mg tablet 40 mg PO DAILY 04/01/24 05/10/24 History PFSH Medical History Anxiety Kidney stones Smoker Abdominal pain Intractable nausea and vomiting History of pancreatitis Pancreatitis Bipolar disorder Lung nodule Migraine Chronic pain Ovarian cyst Obesity Incomplete right bundle branch block Hyperlipidemia History of uterine cancer (2006) Right tubo-ovarian mass Ureteral stone with hydronephrosis History of renal calculi Surgical History History of cholecystectomy H/O ovarian cystectomy (09/2019) History of bilateral oophorectomy History of hysterectomy History of tubal ligation Family History Aunt Breast cancerGrandfather CAD (coronary artery disease)Father Heart disease, Onset Age: 73 Triple bypassMother Heart disease, Onset Age: 62Other Diabetes Social History household members: none Smoking Status: Current every day smoker tobacco type: cigarettes Tobacco: How many years used: 15 alcohol intake: current substance use type: does not use HPI HPI Details: SALLY VARGAS, is a 43 F who presents to the office today for follow up. OV 5..24 pt reports she has been having the following symptoms since August of 2023. She is experiencing LLQ pain; daily N/V and is unable to keep any food down; alternating constipation and diarrhea that has a green color. Pt states that she is taking Creon, pantoprazole, and Phenergan. abd/pelvis CT 02.24.24 No acute findings in the abdomen or pelvis. Nonobstructing left nephrolithiasis. Colonic fecal burden consistent with clinical constipation. abd/pelvis CT 03.05.24 Hepatic cysts. Nonobstructive left renal calculi. OV 05.10.24 pt reports continued symptoms of N/V/D; occasional constipation, abd pain, HB, and difficulty swallowing. Pt reports that she is getting fitted for dentures in 3 months. ROS Const Constitutional: Positive for fatigue, headache(s) and weight change (weight loss); No fever(s) ENT ENT: Positive for headache(s) and difficulty swallowing Gastro GI: Positive for abdominal pain, bloating, change in bowel habits, constipation, diarrhea, heartburn, difficulty swallowing, excessive flatus, nausea/dyspepsia and vomiting; No belching, change in stool character, coffee ground emesis, cramping, feeling full early, incontinent of stools, Vomiting blood/hematemesis, Blood in stool, loose stools, Black,tarry stools, pain with swallowing or other Musc Musculoskeletal: Positive fo (more content not included)...[facility]09-13-2024 Telephone encounter Note* Telephone Encounter - Whit Guardado LPN - 05/27/2024 1:22 PM EDT Phoned patient left message to return call and ask to speak to a nurse. [facility]09-13-2024 Telephone encounter Note* Telephone Encounter - Silverio [...] refer her to our [facility] (neurology)? [facility]09-13-2024 Telephone encounter Note* Telephone Encounter - Brittnee Barraza LPN - 05/27/2024 12:55 PM EDT Encounter printed for Provider to address. Brittnee Barraza LPN [facility]09-13-2024 Telephone encounter Note* Telephone Encounter - Deepa Salvador LPN - 05/27/2024 11:12 AM EDT Pt calls again asking if doctor had answered her request for increase as of yet . I explained was not answered as of yet. [facility]09-12-2024 Telephone encounter Note* Telephone Encounter - Paradise Haley RN - 05/26/2024 9:12 AM EDT Patient calls back to see if provider has responded to request. Notified patient that provider still has not advised on request. Paradise Haley RN [facility]09-11-2024 Telephone encounter Note* Telephone Encounter - Ivanna Torre RN - 05/25/2024 4:50 PM EDT Patient calls back and asks that this message be sent urgent to provider. Injections are helping. She just needs a little stronger dose of sumatriptan for migraine relief. Please review and advise, Ivanna Torre RN [facility]09-11-2024 Telephone encounter Note* Telephone Encounter - Ivanna Torre RN - 05/25/2024 2:30 PM EDT Patient calls to check on status of request below. Notified patient request was sent to provider and waiting for review. Patient verbalizes understanding. Ivanna Torre RN [facility]09-11-2024 Telephone encounter Note* Telephone Encounter - Cara Hernandez LPN - 05/25/2024 11:41 AM EDT Patient is requesting a higher dose of her migraine injection (sumatripan). PATIENT stated that stated if she needed to calling to get her dosage increased. Please review advise Cara Hernandez LPN [facility]09-05-2024 Telephone encounter Note* Telephone Encounter - Lara [...] is needed, pt agreed. Lara Mercado LPN [facility]09-05-2024 Miscellaneous Notes* Telephone Encounter - Lara Mercado [...] advise patient. Thank you. documented in this encounterUniversity Hospitals St. [facility]09-04-2024 Telephone encounter Note * Telephone Encounter - [...] whether patient knows how to use pen [facility]09-04-2024 Telephone encounter Note* Telephone Encounter - Nunu Carcamo RN - 05/18/2024 9:42 AM EDT Patient asking if pcp ordered the imitrex injections for her? [facility]09-03-2024 Telephone encounter Note* Telephone Encounter - Lexy Desouza LPN - 05/17/2024 11:32 AM EDT Pt called to check status because she did not hear back from the office. Lexy Desouza LPN [facility]08-30-2024 Telephone encounter Note* Telephone Encounter - Ivanna Torre RN - 05/13/2024 11:34 AM EDT Patient calls to check on status of request. Notified request had been sent to provider and was pending review. Patient verbalizes understanding. Ivanna Torre RN [facility]08-29-2024 Telephone encounter Note* Telephone Encounter - Renetta Hernández RN - 05/12/2024 10:35 AM EDT Patient calling in. Pt had [facility] visit with Dr. Haley on 04/29/24 due to migraines and pt was ordered Imitrex tablets. Pt states the tablets work but not for very long. Asking if she could try the injections? Please advise patient. Thank you. [facility]08-21-2024 Telephone encounter Note* Telephone Encounter - Ashlyn [...] Recio RN May 04, 2024 8:53 AM T [facility]08-21-2024 Miscellaneous Notes* Telephone Encounter - Ashlyn Recio [...] 04, 2024 8:53 AM documented in this encounterUniversity Hospitals St. [facility]08-16-2024 History of Present illness Narrative* Silverio Haley MD - 04/29/2024 3:39 PM EDT VIRTUAL VISIT PROGRESS NOTE This is a virtual visit using Tarisa Zoom Video Visit. It required patient- provider interaction for the medical decision making as documented below. I have communicated my name and active licensure. The patient's identity and physical location wereverified at the time of this visit. Either the patient or their legal petroleum products sales representative has been informed of the risks and benefits of -- and alternatives to -- treatment through a remote evaluation andconsents to proceed with the evaluation remotely. Sally Vargas is a 43 year old female seen for migraines. Patient is a 43-year-old female with a history of migraines, presenting with worsening migraines over the past three months. Patient was diagnosed with migraines in 2015 and has been on gabapentin for management. In 2016, she experienced a severe migraine lasting almost two weeks, prompting a visitto the ER at [facility], where a CT scan was performed. 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 She was subsequently referred to a neurologist at [facility]. In 2019, patient was hospitalized for a severe migraine and was found to have low sodium levels, leading to a transfer to [facility] for two nights. She was hospitalized for [...] Benign liver cyst Comment: CT scan at [facility] 11/2009 and 04/2010 showe 4 mm increase in size. No pain. No elevated LFTs on 03/11/2010. 05/17/2008: Calculus of kidney Comment: Sees Dr. Nicolas: Hospitalized age 20, and again later -- no procedures so far ([facility], [facility]) No date: Cancer (HCC) 10/07/2021: COVID-19 virus infection Comment: 09/2021 No date: Diverticulosis No date: Dysmenorrhea No date: Hemorrhoids No date: History of blood transfusion 05/17/2008: Impaired fasting glucose Comment: Sugar 104 fasting, 04/2105/25/2020: Intractable nausea and vomiting 07/10/2020: Marijuana use Comment: ER visit 07/06/2020, [place] 05/17/2008: MIGRAINE Comment: Has used imitrex with [...] every 8 hours as needed for nausea/vomiting. yftyvb-ujmwuyow-kybucus (CREON 3) 3,000-9,500- 15,000 unit delayed release [...] which included preparing to see the patient, awij-jf-yuoz patient care, completing clinical documentation, obtaining and/or reviewing separately obtained history, performing a medically appropriate examination, counseling and educating the pat ient/family/caregiver, and ordering medications, tests, or procedures. Silverio Haley MD documented in this encounterUniversity Hospitals St. [facility]08-16-2024 Telephone encounter Note * Telephone Encounter - [...] for today with provider. Lexy Desouza LPN [facility]08-16-2024 Miscellaneous Notes* Telephone Encounter - Lexy Desouza [...] provider. Lexy Desouza LPN documented in this encounterUniversity Hospitals St. John [facility] Center07-19-2024 Telephone encounter Note * Telephone Encounter - Yumiko Dailey PA - 04/01/2024 2:38 PM EDT I contacted patient to discuss her symptoms since she reported chest pain to [place]. If patient returnscall, please connect her with provider. In original note, she just reported worsening cough and continues fever. If patient is having any chest pain, needs to proceed to ER. [facility]07-19-2024 Miscellaneous Notes* Telephone Encounter - Yumiko Dailey [...] calling and states she was seen in [facility] yesterday and a chest xray [...] free, etc. Please call patient with reply. [phone] Thank you. documented in this encounterUniversity Hospitals St. [facility] Center07-19-2024 Telephone encounter Note * Telephone Encounter - [...] proceed to the ER. Lou Gallego MA [facility]07-19-2024 Telephone encounter Note* Telephone Encounter - Yumiko Dailey PA - 04/01/2024 2:22 PM EDT Patient called requesting CXR order she declined yesterday. Order was placed. We will contact her with results. Of note, she is on doxycycline, prednisone and tessalon perles already. Work note in chart [facility]07-19-2024 Telephone encounter Note* Telephone Encounter - Renetta Hernández RN - 04/01/2024 1:51 PM EDT Patient calling and states she was seen in [facility] yesterday and a chest xray [...] free, etc. Please call patient with reply. [phone] [facility]07-18-2024 History of Present illness Narrative* Marcelino Bess APRN.SALES MERCHANDISING SPECIALIST - 03/31/2024 5:29 PM EDT Subjective HPI [...] Benign liver cyst 05/24/2010 CT scan at [facility] 11/2009 and 04/2010 showe 4 mm increase in size. No pain. No elevated LFTs on 03/11/2010. Calculus of kidney 05/17/[address] Nicloas: Hospitalized age 20, and again later -- no procedures so far ([facility], [facility]) Cancer (HCC) COVID-19 virus infection 10/07/202109/2021 Diverticulosis [...] every 8 hours as needed for nausea/vomiting. fzmjwk-ozdksmbt-aywsagy (CREON 3) 3,000-9,500- 15,000 unit delayed release [...] of care. This note was generated using Invincea software. It may contain errors in wording, punctuation, or spelling. Marcelino Bess APRN.MANUELITO documented in this encounterUniversity Hospitals St. John [facility] Center06-28-2024 History of Present illness Narrative* Yumiko Dailey, CHAZ - 03/11/2024 5:11 PM EDT Images from the original note were not included. This note was created using NXT-ID. Subjective Sally Vargas is a 43 year [...] in for evaluation. She has been taking fqqn-rcn-jskthow Motrin with minimal improvement. PAST MEDICAL HISTORY Diagnosis Date Allergic rhinitis, cause unspecified 05/17/2008 Spring and summer Benign liver cyst 05/24/2010 CT scan at [facility] 11/2009 and 04/2010 showe 4 mm increase in size. No pain. No elevated LFTs on 03/11/2010. Calculus of kidney 05/17/[address] Nicolas: Hospitalized age 20, and again later -- no procedures so far ([facility]) Cancer (HCC) COVID-19 virus infection 10/07/202109/2021 Diverticulosis [...] every 8 hours as needed for nausea/vomiting. uepqft-clrphxfv-tsixaex (CREON 3) 3,000-9,500- 15,000 unit delayed release [...] three times a day for 5 days. mbsjnrik-zqxkyxwut-ucteikqhtyvrry (CORTISPORIN) 3.5-10,000-1 mg/mL-unit/mL-% otic suspension Use 3 [...] ER evaluation. CHAZ Combs documented in this encounterUniversity [facility]als [facility]. [facility]24 Hospital Discharge instructions Patient Education 02/04/2024 18:20:25 [...] worse Numbness or weakness in a leg 5849-6752 [employer]. [address] [place] [address]. All rights reserved. This information is not [...] foods again, start with small amounts of yuvq-it-vszqja, low- fat foods. These include apple sauce, [...] increase stomach acid. Don't use aspirin or vkka-ydw-ynrnfnf pain and fever medicines, if possible. This includes nonsteroidal anti-inflammatory drugs (NSAIDs). Lose excess weight. Finish eating at least 2 hours before you go to bed or lie down. Raise the head of your bed. [phone] [employer]. [address] [place] [address]. All rights reserved. This information is not intended as a substitute for professional medical care. Always follow yourhealthcare professional's instructions. Follow Up Care 02/04/2024 16:44:42 With:MERCED HUTCHINSON Address: [address] [place] [phone] When:2-4 days [facility] 05-23-2024 Note Discharge Instructions Thank you for allowing [facility] to assist you with your healthcare needs. [...] Up with MERCED HUTCHINSON When:Within 2-4 days Where:[address] [place] [phone] Allergies Advil Contrast dye Flagyl Motrin NSAIDS [...] worse Numbness or weakness in a leg 4301-4521 [employer]. [address] [place] [address]. All rights reserved. This information is not [...] foods again, start with small amounts of tafj-yb-tqacyl, low- fat foods. These include apple sauce, [...] increase stomach acid. Don't use aspirin or kqlp-uwq-nrfhpsc pain and fever medicines, if possible. This includes nonsteroidal anti-inflammatory drugs (NSAIDs). Lose excess weight. Finish eating at least 2 hours before you go to bed or lie down. Raise the head of your bed. 5265-0659 [employer]. [address] [place] [address], [place] [address]. All rights reserved. This information is not intended as a substitute for professional medical care. Always follow yourhealthcare professional's instructions. Additional Information VACCINATE! IT SAVES LIVES! Members of the community who have not yet received the COVID-19 vaccine and would like to receive it can visit one of [facility] vaccine clinics. There are many vaccine clinic locations within the [facility]. For locations and available times, please visit www.gettheshot.coronavirus.[place].gov/. It is important to note that some COVID mobile vaccine clinics are held outdoors and may be canceled in rainy or stormy conditions. To learn more about pediatric vaccinations (ages 5-11), we invite you to visit the [facility] webpage. https://www.[facility].org/pages/1040-Fwjlu-Mfuxhvqhoky-Uckcbraoxq-Xvhgd-Ova stions.htmlTo learn more about the COVID-19 vaccine, we invite you to visit the CDC website for a list of frequently asked questions. https://www.cdc.gov/coronavirus/2019-ncov/vaccines/faq.html [facility] [employer] [employer] Patient Portal Access Instructions: Stay connected with your healthcare team and access your personal medical information anytime with the [facility] Patient Portal. If you would like a full copy of your medical records please contact the [facility] Medical Records Department Thursday through Thursday between 8a.m. and 4:30p.m. Please follow the directions below to access the portal: 1.Access the email account you provided upon registration to the [facility].2.Look for an invitation email from [facility].3.Open the email and access the invitation link: Accept Invitation to [facility]4.Fill in the required xiong to create your account. Sign into [email or web address] with your username and password that you [...] you will allow to register on the [facility] Patient Portal for access to your information. You can also access the [facility] Patient Portal on the [employer] mini. Simply click on Health Records under MRO and then click on the Crystal logo. [...] Call your local pharmacy or go to http://[employer].Fashfix/5A8Fn4s to find one close to you.3.Make use of household items: Use cat litter or old coffee grounds to dispose medications if other options arenot available. Mix your drugs with these household products, seal them in an airtight container andthrow it into the garbage. Call [facility]: [phone] to be sure your drugs can be [...] aware that I should contact my doctor. 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 These include apple sauce, [...] increase stomach acid. Don't use aspirin or gnfd-lrs-xzzsowz pain and fever medicines, if possible. This includes nonsteroidal anti-inflammatory drugs (NSAIDs). Lose excess weight. Finish eating at least 2 hours before you go to bed or lie down. Raise the head of your bed. 7523-7312 [employer]. [address] [place] [address]. All rights reserved. This information is not intended as a substitute for professional medical care. Always follow yourhealthcare professional's instructions. Follow Up Care 01/30/2024 22:51:13 With:BLUE ROSE DO Address: [facility] [place] [phone]- [phone] When:2-4 days [facility] Address: [address] [place] [phone] When:2-4 days [facility] 05-18-2024 Note Discharge Instructions Thank you for allowing [facility] to assist you with your healthcare needs. The following is importantdischarge information regarding your hospital visit. Diagnosis from Today's Visit Abdominal pain What to Do Next Instructions from Your Care Team No qualifying data available. Post Acute Orders No qualifying data available. You Need to Schedule the Following Appointments Follow Up with BLUE ROSE DO When: When:Within 2-4 days Where:[address] [place] [address]- [phone] Follow Up with MERCED HUTCHINSON When: When:Within 2-4 days Where:[address] [place] [address] [phone] Allergies Advil Contrast dye Flagyl Motrin NSAIDS [...] foods again, start with small amounts of ywvn-ve-zuxoea, low- fat foods. These include apple sauce, [...] increase stomach acid. Don't use aspirin or uzbu-zse-hixgkdc pain and fever medicines, if possible. This includes nonsteroidal anti-inflammatory drugs (NSAIDs). Lose excess weight. Finish eating at least 2 hours before you go to bed or lie down. Raise the head of your bed. 5656-5464 [employer]. [address] [place] [address]. All rights reserved. This information is not intended as a substitute for professional medical care. Always follow yourhealthcare professional's instructions. Additional Information VACCINATE! IT SAVES LIVES! Members of the community who have not yet received the COVID-19 vaccine and would like to receive it can visit one of [facility] vaccine clinics. There are many vaccine clinic locations within the [facility]. For locations and available times, please visit www.gettheshot.coronavirus.[place].gov/. It is important to note that some COVID mobile vaccine clinics are held outdoors and may be canceled in rainy or stormy conditions. To learn more about pediatric vaccinations (ages 5-11), we invite you to visit the [facility] webpage. https://www.[facility].org/pages/7416-Qkqnf-Cgqdxxklkwn-Awnanhutxm-Boftd-Qin stions.htmlTo learn more about the COVID-19 vaccine, we invite you to visit the CDC website for a list of frequently asked questions. https://www.cdc.gov/coronavirus/2019-ncov/vaccines/faq.html [employer] Patient Portal Access Instructions: Stay connected with your healthcare team and access your personal medical information anytime with the [employer] Patient Portal. If you would like a full copy of your medical records please contact the [facility] Medical Records Department Thursday through Thursday between 8a.m. and 4:30p.m. Please follow the directions below to access the portal: 1.Access the email account you provided upon registration to the [facility].2.Look for an invitation email from [facility].3.Open the email and access the invitation link: Accept Invitation to [facility]4.Fill in the required xiong to create your account. Sign into [email or web address] with your username and password that you [...] you will allow to register on the [facility] Patient Portal for access to your information. You can also access the [facility] Patient Portal on the [employer]. Simply click on Health Records under MRO and then click on the Crystal logo. [...] Call your local pharmacy or go to http://bit.Fashfix/0U0Dq1l to find one close to you.3.Make use of household items: Use cat litter or old coffee grounds to dispose medications if other options arenot available. Mix your drugs with these household products, seal them in an airtight container andthrow it into the garbage. Call [facility]: [phone] to be sure your drugs can be [...] aware that I should contact my doctor. 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 DC Cipro. [facility]05-07-2024 Miscellaneous Notes* Telephone Encounter - Gretchen Newton APRN.CNS - 01/19/2024 10:18 AM EDT Negative urine culture.. DC Cipro. documented in this encounterUniversity Hospitals St. [facility]05-07-2024 History of Present illness Narrative* Gretchen Newton APRN.CNS - 01/19/2024 9:45 AM EDT AMBULATORY TELEPHONE VISIT Sally Vargas has consented to this telephone encounter. Persons Present: patient Chief Complaint/Reason: ER follow up, rash HPI: She was seen at [facility] on January 16, 2024. Noted UTI [...] systemic complaints. Data Reviewed: Outside chart from [facility] reviewed. Assessment: (N39.0) Urinary tract infection without [...] on with cetirizine and Kenalog as needed. Tarisa message sent. 2. Pruritus - ICD9: 698.9, ICD10: L29.9 - TRIAMCINOLONE ACETONIDE 0.1 % TOPICAL CREAM 3. Rash and nonspecific skin eruption - ICD9: 782.1, ICD10: R21 . - CETIRIZINE 10 MG TABLET Total Time Spent: 10 minutes in visit Gretchen Newton APRN.CNS documented in this encounterUniversity Hospitals St. [facility]05-06-2024 Telephone encounter Note * Telephone Encounter - Kristen Andrade LPN - 01/18/2024 5:05 PM EDT Spoke with patient and patient agreed to changing appointment to tomorrow. [facility]05-06-2024 Miscellaneous Notes* Telephone Encounter - Kristen Andrade LPN - 01/18/2024 5:05 PM EDT Spoke with patient and patient agreed to changing appointment to tomorrow. * Telephone Encounter - Gretchen Newton APRN.CNS - 01/18/2024 4:32 PM EDT Can we have a video visit tomorrow instead of the 9th? Please pull records today for review, I can not see anything in care everywhere. * Telephone Encounter - Lexy Desouza LPN - 01/18/2024 2:05 PM EDT Pt called in for an ER FU. Pt was seen at [facility] ER 01-16-24. Pt calling for an ER [...] problem. Lexy Desouza LPN documented in this encounterUniversity Hospitals St. [facility]05-06-2024 Telephone encounter Note * Telephone Encounter - Gretchen Newton APRN.CNS - 01/18/2024 4:32 PM EDT Can we have a video visit tomorrow instead of the 9th? Please pull records today for review, I can not see anything in care everywhere. [facility]05-06-2024 Telephone encounter Note* Telephone Encounter - Lexy Desouza LPN - 01/18/2024 2:05 PM EDT Pt called in for an ER FU. Pt was seen at [facility] ER 01-16-24. Pt calling for an ER [...] there is a problem. Lexy Desouza LPN [facility]05-04-2024 Discharge summary Author Mor Painter [facility] January 16, 2024 6:07pm Note Date/Time January 16, 2024 4:41pm [facility] Medical Records Department [address] [place] [address] Emergency Department Summary 01/16/24 MR#: [id number] Acct: [id number] Name: SALLY VARGAS Rep #:[id number] : [...] plan that I have access to is 2019. Documentation is available is that patient has [...] symptoms: Yes (December 2023) Recent Illness/Hospitalization: Yes PFSH PFS Medical History Abdominal pain Anxiety Bipolar disorder [...] % (Auto) 52.7 Lymph % (Auto) 37.1 Bacon % (Auto) 6.7 Eos % (Auto) 2.7 [...] Sl. Cloudy Urine pH 5.0 Ur Specific Cadiz 1.030 Urine Protein 30 H Urine Glucose [...] your Primary Care Provider. Call [facility] ([phone]) or report to the closest Emergency Room. Call 911 if necessary. 01/16/241806 <Electronically signed by Mor Painter MD> Cosigner Signature (if applicable): CC: Dr. Silverio Haley MD ~ Signed [facility] Work Phone: [phone] Instructions* Patient Instructions* Silverio Haley MD - 01/01/2024 11:12 AM EDT Tylenol ES 500mg --max dose is 1000mg 4 times daily. From Up to Date for treating chronic pancreatitis: We generally use a combination of vitamin E (200 international units [IU]), vitamin C (500 mg), beta-carotene (5000 IU), selenium (500 mcg), and methionine (1000 mg). documented in this encounterUniversity Hospitals St. John [facility] Center04-19-2024 History of Present illness Narrative* Silverio Haley MD - 01/01/2024 10:53 AM EDT This note was created using NoteWriter. Subjective Sally Vargas is a 43 year old female. Patient presents with: ED Follow-up: [facility] ED follow up 12/26/23 for stomach pain SUBJECTIVE: Sally Vargas is a 43 year old year old lady here today for ED follow up appointment for reviewof medical conditions. From [facility]: Reports ongoing stomach issues for several months, [...] up Phenergan helps. Takes first thing in AM\. Metoclopramide did not help. Will see Dr. [...] Benign liver cyst 05/24/2010 CT scan at [facility] 11/2009 and 04/2010 showe 4 mm increase in size. No pain. No elevated LFTs on 03/11/2010. Calculus of kidney 05/17/[address] Nicolas: Hospitalized age 20, and again later -- no procedures so far ([facility], [facility]) Cancer (HCC) COVID-19 virus infection 10/07/202109/2021 Diverticulosis [...] every 8 hours as needed for nausea/vomiting. pbwdtj-vffvizcx-aklzqhy (CREON 3) 3,000-9,500- 15,000 unit delayed release [...] food. - Provide a short-term prescription for Raymond for severe pain episodes. - Recommend Metamucil to bulk up stools and slow down bowel movements. - Discuss with psychiatrist the possibility of adding duloxetine for chronic pain. - Follow-up appointment with director call center sales next month. - Monitor for signs of anemia, blood in stools, and changes in bowel movements. - Avoid foods with MSG and limit dairy intake. - Consider adding vitamin E and C supplements to help with inflammation. - Check on the Creon dose with the director call center sales. - Schedule a check-up appointment in a couple of months. - Offered the option of virtual visits for future appointments. Note with portions drafted by Celaton. Note reviewed, edited, and signed by the visit provider. I spent a total of 38 minutes on the date of the service which included uwpt-pb-fmwb patient care, completing clinical documentation, obtaining and/or reviewing separately obtained history, performing a medically appropriate examination, counseling and educating the patient/family/caregiver, ordering medications, tests, or procedures, independently interpreting results (not separately reported), and communicating results to the patient/family/caregiver. documented in this encounterUniversity Hospitals St. John Medical Center04-16-2024 History of Present illness Narrative* Silverio Haley [...] indicated even if F2F. documented in this encounterUniversity Hospitals St. John Medical Center04-12-2024 Miscellaneous Notes* Telephone Encounter - Silverio Haley [...] provider can send in prescription forphenergan to [facility] Cons[facility]o? Patient states that pain in [...] EDT 1) Wish things were better at [facility] ER so they could have at [...] patient I have not seen--this is a [facility] institute policy. Also, primary care providers are [...] in to also request something for pain (Raymond) be sent to [facility]. Ivanna Torre RN * Telephone Encounter - Ashlyn Recio RN - 12/25/2023 9:08 AM EDT Pt states she went to [facility] ER last night like provider suggested and [...] She states she is never going to [facility] ER again. I let the Pt know [...] before does more testing. Will discuss with Merced when she returns since she knows patient [...] I just get sent home. 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 Patient states they don't care about me & ended conversation. Rema Lehman MA * Telephone Encounter - Silverio Haley MD - 12/23/2023 7:51 PM EDT Below noted--if any signs of dehydration, but does not want to go back to [facility] ER, consider going toa [facility] ER ([place], [place], or [facility]). See whether patient wants to try metoclopromide [...] time. The last time she went to [facility] and they gave her Vicodin and [...] She said not to even bother an rojas madsen p. Ashlyn Recio RN * Telephone Encounter [...] results of Gastric Emptying Study completed at [facility] on 12/17/2022. Ordered byRosa but out this week. Sending to PCP. Patient also asking for hemoglobin results from last [facility] visit: 13.0 g/dL 12.0-15.0 Ivanna Torre RN documented in this encounterUniversity Hospitals St. John Medical Center04-03-2024 History of Present illness Narrative* Holly Fraga APRN.SALES MERCHANDISING SPECIALIST - 12/16/2023 6:16 PM EDT This note [...] dyspnea Denies using homeopathic or OTC medicines PERFORATOR Has not been able to smoke as much related to illness. The history is provided by the patient. No english language learner tutor was used. Cough This is a new [...] Benign liver cyst 05/24/2010 CT scan at [facility] 11/2009 and 04/2010 showe 4 mm increase in size. No pain. No elevated LFTs on 03/11/2010. Calculus of kidney 05/17/[address] Nicolas: Hospitalized age 20, and again later -- no procedures so far [facility]) Cancer (HCC) COVID-19 virus infection 10/07/202109/2021 Diverticulosis [...] esophagitis, 2 cm hiatal hernia EGD W/O [facility] SPEC VARICIES INJ 05/28/2020 LIG/TRNSXJ FLP TUBE [...] Contrast Dye [Iodine], Dicyclomine, and Ibuprofen MEDICATIONS jtgyqr-wybucqxr-dhiwaug (CREON 3) 3,000-9,500- 15,000 unit delayed release [...] sooner if worsening of symptoms Holly Fraga APRN.SALES MERCHANDISING SPECIALIST documented in this encounterUniversity Hospitals St. John Medical Center04-03-2024 History of Present illness Narrative* Mini Bunch [...] PATIENT PRESENTS WITH AN IMPLANTABLE OR ATTACHED SUPERVISOR PROPERTIES: No RADIOLOGY DEPARTMENT: General X-ray: Exam(s) Completed: Chest X-Ray PERIPHERAL IV DATA: Not applicable SIGNED BY: RT Belinda(R) December 16, 2023 5:22 PM documented in this encounterUniversity Hospitals St. John [facility] Center04-02-2024 Miscellaneous Notes* Telephone Encounter - Ivanna Torre RN - 12/15/2023 9:28 AM EDT Mckay with [facility] calls to ask if Gastric Emptying liquid study has to be done with liquid or can it bedone with oatmeal or semi-solid as they don't do it with liquid at [facility]. Notified provider and received ok for change. Call placed to [facility] and verbal order given to Jeison that Gastric Emptying studying could be changed to oatmeal or semi-solid. Ivanna Torre RN documented in this encounterUniversity Hospitals St. John [facility] Center04-01-2024 Miscellaneous Notes* Telephone Encounter - Ivanna Torre RN - 12/14/2023 3:54 PM EDT Patient calls to report that she is unable to print off the work excuse that was uploaded to to return to work. 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 Work excuse is electronically signed by Merced. Copy placed in medical records for pickers material handlers. Patient aware. Patient requested Merced's staff be notified. Message sent. Closing encounter. Ivanna Torre RN documented in this encounterUniversity Hospitals St. John Medical Center04-01-2024 History of Present illness Narrative* Merced Hutchinson APRN.SALES MERCHANDISING SPECIALIST - 12/14/2023 1:37 PM EDT VIRTUAL VISIT [...] a virtual visit on my chart via [employer] platform. She presents for concerns of nausea, vomiting. Recently seen in the ER and admitted to [facility] 12/02. Seen with GI, Dr. Rose. Questionable [...] date. Medications Current Outpatient Medications Medication Sig ehhcgv-wosirmrr-rgwryfy (CREON 3) 3,000-9,500- 15,000 unit delayed release [...] Disorder - 03/31/2016 (A priority) Comment: Seeing [place] counseling [facility]. Reactive Depression - 03/31/2016 (A priority) Comment: Seeing INORGANIC CHEMIST at Counseling center. Migraine Without Aura - 05/17/2008 (A priority) Comment: Has used imitrex with good response; Adjustment Insomnia - 03/31/2016 (B priority) Allergic rhinitis, cause unspecified - 05/17/2008 (B priority) Comment: Spring and summer Ovarian Cyst - 07/15/2012 (C priority) Benign Liver Cyst - 05/24/2010 (C priority, Chronic) Comment: CT scan at [facility] 11/2009 and 04/2010 showe 4 mm increase in size. No pain. No elevated LFTs on 03/11/2010. Calculus of Kidney - 05/17/2008 (C priority) Comment: Sees Dr. Nicolas: Hospitalized age 20, and again later -- no procedures so far ([facility], [facility]) Family history of diabetes mellitus - 05/17/2008 [...] - ICD9: 789.00, ICD10: R10.9 Merced Hutchinson APRN.MANUELITO Patient verbalizes understanding of instructions from today's [...] Time Spent: 19 minutes documented in this encounterUniversity Hospitals St. John Medical Center03-27-2024 Hospital Discharge instructions Additional Instructions Follow-up with Dr. Monster matamoros in 1 to 2 weeks as needed. Tylenol or ibuprofen Profen for headache as needed. Ice to injured area of head as needed. Return to ED for worsening or concerning symptoms.[facility] Work Phone: [phone]) 166-666003-21-2024 Discharge summary Author Brina Quinteros [facility] December 03, 2023 9:59pm Note Date/Time December 03, 2023 3:4 4pm [facility] Medical Records Department [address] [place] [address] Emergency Department Summary 12/03/23 MR#: [id number] Acct: [id number] Name: SALLY VARGASN Rep #:[id number] : 1980 43 From: Ryan Bradford PCP: Dr. Silverio Haley MD Status:AD M IN Location: MS3 [id number] HPI <CHAZ Ayala - Last Filed: 12/03/23 [...] fevers, chills, hematemesis, melena/hematochezia, and urinary symptoms. PFSH <CHAZ Ayala - Last Filed: 12/03/23 21:59> [facility] Medical History (Updated 12/03/23 @ 17:43 [...] Oxygen Delivery Method Room Air Room Air [facility] <CHAZ Ayala - Last Filed: 12/03/23 21:59> [facility] Narrative Medical decision making narrative: Patient presenting due to epigastric abdominal pain that radiates to her left upper quadrant that she has had for 2 weeks. She does take Creon and Protonix daily. She was seen in [facility] ED about 2 weeks ago, I did [...] 45.2 L Lymph % (Auto) 44.6 H Bacon % (Auto) 6.8 Eos % (Auto) 2.0 [...] Garcia, DO - Last Filed: 12/03/23 17:36> MDM MDM Narrative Medical decision making narrative: Patient presenting due to epigastric abdominal pain that radiates to her left upper quadrant that she has had for 2 weeks. She does take Creon and Protonix daily. She was seen in [facility] ED about 2 weeks ago, I did [...] Attending note: Patient seen and evaluated with head start director. I perform my own ixxf-ws-petm evaluation. I agree with the plan of work-up. Continued abdominal pain mid abdomen to the left worse last 2 weeks. History of pancreatitis for the past few years. Gallbladder removed in 1998 prior to pancreatitis. Denies alcohol history. She was last seen 2 weeks ago at [place] ED reported CT scan labs were normal. She was sent home on Zofran for which she had at home. Had appointment with GI [facility] today however her insurance ride did not [...] clinician: Hospitalist This note was generated with [employer] dictation software. It may contain incorrectwords, spelling, and [...] 45.2 L Lymph % (Auto) 44.6 H Bacon % (Auto) 6.8 Eos % (Auto) 2.0 [...] Abdominal pain Disposition Disposition: Acute Care Hospital [facility] Discharge Date/Time: 12/03/23 17:27 What to do if you have Problems For any increased pain, shortness of breath, bleeding, nausea or vomiting, chestpain, or any unexpected problems, contact your Primary Care Provider. Call [facility] ([phone]) or report to the closest Emergency Room. Call 911 if necessary. 12/03/23 1736 <Electronically signed by Ryan Bradford> Cosigner Signature (if applicable): 12/03/23 2159 <Electronically signed by Brina WARE> CC: Dr. Silverio Haley MD ~ Signed [facility] Work Phone: 1(680) 490-584503-21-2024 History and physical note Author Jonh Geiger [facility] December 03, 2023 6:20pm Note Date/Time December 03, 2023 4:3 2pm [facility] Medical Records Department [address] [place] [address] H&P Exam - Hospitalist 12/03/23 1632 MR#: [id number] Acct: [id number] Name: SALLY VARGAS Rep #:[id number] : 1980 43 From: Jonh matthew DO PCP: Dr. Silverio Haley MD Status:AD M IN Location: [facility] HA064-4 HPI - General General Date of Admission: 12/03/23 Date of Service: 12/03/23 Chief Complaint: Intractable nausea and vomiting HPI Narrative SALLY VARGAS, is a 43 F who presented to [facility] ED on 12/03/2023 with intractable nausea [...] pancreatitis. She went to the ED at [facility] about 2 weeks ago for this. Her [...] of [facility] records. Patient was admitted to [facility] in early March 2023 with very similar symptoms. She was transferred to [facility] in [place] for further management. She was seen there [...] that hospitalization and thinks that Dr. Young's INORGANIC CHEMIST started her on Creon. Unclear if the patient ever had the gastric emptying study done. Patient was hospitalized at [facility] in 2019 for significant abdominal pain. She [...] breath. No other acute concerns this time. [facility] Medical History (Updated 12/03/23 @ 17:43 [...] 45.2 L, Lymph % (Auto) 44.6 H, Bacon % (Auto) 6.8, Eos % (Auto) 2.0, [...] is a 43-year-old female who presented to [facility] ED on 12/03/2023 with abdominal pain [...] here. ? Admit under inpatient status to [facility]. GI consulted. Will allow patient tohave a [...] 55 minutes. Charges/Coding Visit Charges Inpatient E&M: 53287 Init Hosp L2 12/03/23 1820 <Electronically signed by Jonh Geiger DO> Cosigner Signature (if applicable): CC: Dr. Jonh Geiger DO; Dr. Silverio Haley MD~ Signed [facility] Work Phone: 1(401) 187-940903-21-2024 Miscellaneous Notes* Telephone Encounter - Kristen Andrade LPN - 12/03/2023 3:18 PM EDT Spoke with patient and gave her providers message but she informs that she is already in the ER dueto the abdominal pain. * Telephone Encounter - Gretchen Newton APRN.GARCIA - 12/03/2023 2:59 PM EDT Review of [...] advise, Ivanna Torre RN documented in this encounterUniversity Hospitals St. John Medical Center02-11-2024 Miscellaneous Notes* Telephone Encounter - Joana Maldonado RN - 10/25/2023 2:46 PM EST Patient calling with request for pain medication to be called in . Patient denies any new or worsening symptoms of which a provider is not aware: No. Offered to triage patient and possibly schedule avirtual appointment and she declined. Informed her she can do a virtual appointment per Mira. Patient agrees. documented in this encounterUniversity Hospitals St. John Medical Center02-10-2024 Discharge summary Author Fernando Cassidy [facility] October 24, 2023 9:34pm Note Date/Time October 24, 2023 8:48pm [facility] Medical Records Department [address] [place] [address] Emergency Department Summary 10/24/23 MR#: [id number] Acct: [id number] Name: SALLY VARGAS Rep #:[id number] : [...] head. She is not on blood thinners. PFSH PFS Medical History Bipolar disorder Chronic [...] your Primary Care Provider. Call [facility] ([phone]) or report to the closest Emergency Room. Call 911 if necessary. 10/24/232133 <Electronically signed by Fernando Cassidy MD> Cosigner Signature (if applicable): CC: Dr. Silverio Haley MD ~ Signed [facility] Work Phone: [phone]) 165-774802-09-2024 Miscellaneous Notes* Telephone Encounter - Merced Hutchinson [...] issues with vomiting. Patient voiced understanding. Paradise Haley RN documented in this encounterUniversity Hospitals St. John Medical Center01-26-2024 History of Present illness Narrative* Mini Bunch, [...] PATIENT PRESENTS WITH AN IMPLANTABLE OR ATTACHED SUPERVISOR PROPERTIES: No RADIOLOGY DEPARTMENT: General X-ray: Exam(s) Completed: Chest X-Ray PERIPHERAL IV DATA: Not applicable SIGNED BY: RT Belinda(R) October 09, 2023 5:05 PM documented in this encounterUniversity Hospitals St. John Medical Center12-28-2023 History of Present illness Narrative* Madeline Luo [...] 10, 2023 5:42 PM documented in this encounterUniversity Hospitals St. John Medical Center12-05-2023 Miscellaneous Notes* Telephone Encounter - Milly Henderson APRN.MANUELITO - 08/18/2023 3:37 PM EST Patient identified by name and date of . Patient advised of xray result (no fracture). Advised to take tylenol and rest, ice, elevate hand. Go to ER if pain worsens. Milly Henderson APRN.SALES MERCHANDISING SPECIALIST documented in this encounterUniversity Hospitals St. John Medical Center12-05-2023 History of Present illness Narrative* Milly Henderson APRN.MANUELITO - 08/18/2023 3:09 PM EST Images from the original note were not included. Subjective Hand Injury Pertinent negatives include no chills, fever or rash. Sally Vargas is a 42 year old female who presents with left hand injury. 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 Her thumb has been hurting since. She has tried putting ice on it and taking tylenol. She rates her pain 10/10. Review of Systems Constitutional: Negative for chills and fever. Musculoskeletal: Positive for falls and joint pain. Skin: Negative for itching and rash. BP 142/96 Pulse 80 Temp 36.7 C (98.1 F) Resp 16 Wt 94.3 kg (208 lb) LMP 08/10/2006 YwX972% BMI 38.77 kg/m PAST MEDICAL HISTORY Diagnosis Date Allergic rhinitis, cause unspecified 05/17/2008 Spring and summer Benign liver cyst 05/24/2010 CT scan at [facility] 11/2009 and 04/2010 showe 4 mm increase in size. No pain. No elevated LFTs on 03/11/2010. Calculus of kidney 05/17/[address] Nicolas: Hospitalized age 20, and again later -- no procedures so far ([facility]) Cancer (HCC) COVID-19 virus infection 10/07/202109/2021 Diverticulosis [...] three times daily as needed for nausea/vomiting. khokku-fnmxwyzq-kquvaeh (CREON 3) 3,000-9,500- 15,000 unit delayed release [...] tissue swelling. IMPRESSION: Unremarkable right hand x-ray. Ferry Terminal Supervisor: HERMINIO Transcribe Date/Time: Aug 18 2023 2:52P [...] ER if her pain worsens. Milly Henderson APRN.CNP documented in this encounterUniversity Hospitals St. John Medical Center12-05-2023 Instructions* Patient Instructions* Milly Henderson APRN.CNP - 08/18/2023 3:04 PM EST [...] tissue swelling. IMPRESSION: Unremarkable right hand x-ray. [employer]erry [employer] Supervisor: HERMINIO Transcribe Date/Time: Aug 18 2023 2:52P [...] ER if her pain worsens. Milly Henderson APRN.SALES MERCHANDISING SPECIALIST documented in this encounterUniversity Hospitals St. John Medical Center12-05-2023 History of Present illness Narrative* Kylee Davenport, [...] 18, 2023 2:23 PM documented in this encounterUniversity Hospitals St. John Medical Center11-29-2023 History of Present illness Narrative* Milly Henderson APRN.SALES MERCHANDISING SPECIALIST - 08/12/2023 5:05 PM EST Subjective Cough [...] Benign liver cyst 05/24/2010 CT scan at [facility] 11/2009 and 04/2010 showe 4 mm increase in size. No pain. No elevated LFTs on 03/11/2010. Calculus of kidney 05/17/[address] Nicolas: Hospitalized age 20, and again later -- no procedures so far ([facility]) Cancer (HCC) COVID-19 virus infection 10/07/202109/2021 Diverticulosis [...] three times daily as needed for nausea/vomiting. aqrshv-tfctqimn-pkbrxet (CREON 3) 3,000-9,500- 15,000 unit delayed release [...] Discussed expected course of illness Milly Henderson APRN.SALES MERCHANDISING SPECIALIST documented in this encounterUniversity Hospitals St. John Medical Center11-29-2023 Instructions* Patient Instructions* Milly Henderson APRN.CNP - [...] Discussed expected course of illness Milly Henderson APRN.SALES MERCHANDISING SPECIALIST Treatment for Viral Upper Respiratory Tract Infections [...] fluids help open respiratory and sinus passages [place] [facility] [place] may offer relief of nasal and head [...] worse rather than better documented in this encounterUniversity Hospitals St. John Medical Center09-23-2023 Discharge summary Author Grzegorz Roper [facility] June 06, 2023 5:17pm Note Date/Time June 06, 2023 5:05pm [facility] Medical Records Department [address] [place] [address] Emergency Department Summary 06/06/23 MR#: [id number] Acct: [id number] Name: SALLY VARGAS Rep #:[id number] : [...] similar symptoms: Yes Recent Illness/Hospitalization: No PFSH PFSH Medical History Bipolar disorder Chronic pain History [...] your Primary Care Provider. Call [facility] ([phone]) or report to the closest Emergency Room. Call 911 if necessary. 06/06/231716 <Electronically signed by Grzegorz Roper MD> Cosigner Signature (if applicable): CC: Dr. Silverio Haley MD ~ Signed [facility] Work Phone: 1(509) 794-940409-11-2023 Telephone encounter Note* Telephone Encounter - eMgan Ardon LPN - 05/25/2023 12:36 PM EDT Patient scheduled her WW visit that she missed. [facility] [id number] Miscellaneous Notes* Telephone Encounter - Megan Ardon LPN - 05/25/2023 12:36 PM EDT Patient scheduled her WW visit that she missed. documented in this encounterSUpper Valley Medical [id number] Miscellaneous Notes* Telephone Encounter - Sallie Benitez LPN - 05/19/2023 11:57 AM EDT Patient scheduled for an ER follow up on 05/20/2023. States tooth infection has been addressed and has been referred to oral surgeon and ultrasound of abdomen was normal. * Telephone Encounter - Merced Hutchinson APRN.CNP - 05/15/2023 4:55 PM EDT Noted that [...] 05/15/2023 4:[address] Pena from [facility] calls and states that patient is [...] VV. Denies fever. Pt did go to [facility] ER on 05/04 for evaluation and [...] asking if Merced will call script to [facility] for antibiotics? Please call patient with reply. Thank you. documented in this encounterUniversity Hospitals St. John Medical Center2023 Miscellaneous Notes* Telephone Encounter - Renetta Hernández RN - 05/15/2023 1:57 PM EDT Patient updated of message below. Transferred to screw eye assembler to schedule with Urology. Pt has US scheduled for 05/21. Renetta Hernández RN * Telephone Encounter - Chery Solorzano - 05/13/2023 8:42 AM EDT 1st call attempt, left vm * Telephone Encounter - Merced Hutchinson APRN.MANUELITO - 05/12/2023 4:16 PM EDT I believe [...] had a VV on 04/22/23 & states INORGANIC CHEMIST Evangelina wanted to order an US but pt forgot about it. Pt states she wants to schedule it now. There is an US order in from 03/11/23, is this the correct order? Please advise. Lara Mercado LPN documented in this encounterUniversity Hospitals St. John Medical Center08-21-2023 Discharge summary Author Vikram Dominguez [facility] May 04, 2023 8:05pm Note Date/Time May 04, 2023 8: 04pm [facility] Medical Records Department [address] [place] [address] Emergency Department Summary 05/04/23 MR#: [id number] Acct: [id number] Name: SALLY VARGAS Rep #:[id number] : [...] vaginal complaints. No fevers or chills. PFSH PFSH Medical History Bipolar disorder Chronic pain History [...] 46.3 L Lymph % (Auto) 43.0 H Bacon % (Auto) 6.4 Eos % (Auto) 2.9 [...] Sl. Cloudy Urine pH 6.0 Ur Specific [place] 1.010 Urine Protein Negative Urine Glucose (UA) [...] your Primary Care Provider. Call [facility] ([phone]) or report to the closest Emergency Room. Call 911 if necessary. 05/04/232004 <Electronically signed by Vikram Dominguez DO> Cosigner Signature (if applicable): CC: Dr. Silverio Haley MD ~ Signed [facility] Work Phone: [phone]) 364-693908-09-2023 History of Present illness Narrative* Merced Hutchinson APRN.SALES MERCHANDISING SPECIALIST - 04/22/2023 11:32 AM EDT VIRTUAL VISIT [...] visit. Either the patient or their legal petroleum products sales representative has been informed of the risks [...] she went back to the ER at [facility]. Noted some kidney stones. Prior hysterectomy and gallbladder removal. She has been referred to pain management. Has an appointment set up. Her medications were reviewed today and her list is now up to date. Medications Current Outpatient Medications Medication Sig prochlorperazine (COMPAZINE) 10 mg tablet Take 1 tablet by mouth three times daily as needed for nausea/vomiting. mduyme-ujpryhyc-jhhrkvt (CREON 3) 3,000-9,500- 15,000 unit delayed release [...] Disorder - 03/31/2016 (A priority) Comment: Seeing [place] [facility]. Reactive Depression - 03/31/2016 (A priority) Comment: Seeing INORGANIC CHEMIST at Counseling center. Migraine Without Aura - [...] (C priority, Chronic) Comment: CT scan at [facility] 11/2009 and 04/2010 showe 4 mm increase in size. No pain. No elevated LFTs on 03/11/2010. Calculus of Kidney - 05/17/2008 (C priority) Comment: Sees Dr. Nicolas: Hospitalized age 20, and again later -- no procedures so far ([facility]) Smoker - 05/17/2008 (C priority) Comment: Started [...] Kidney stones noted with recent visit to [facility] ER, noted on prior exams, possible contributor [...] Time Spent: 19 minutes documented in this encounterUniversity Hospitals St. John Medical Center08-03-2023 History of Present illness Narrative* Kalina Jj - 04/16/2023 10:58 AM EDT POPULATION HEALTH NAVIGATION OUTREACH Action/[facility] Called pt to schedule an appt in [...] Care Gap or Scheduling/Wellness visits Payer: [facility] / Plan: [facility] MEDICAID / Product Type: Medicaid / Care Gap Reviewed:: Specialty Scheduling Reminder: Reminder note to check Health Maintenance for items below Health Maintenance items due: HEPATITIS B(1 of 3 - 3-dose series) Never done PNEUMOCOCCAL(2 - PCV) due on 05/19/2018 Navigation Signature: Kalina Jj April 16, 2023 10:58 AM documented in this encounterUniversity Hospitals St. John Medical Center07-19-2023 Miscellaneous Notes* Telephone Encounter - Ivanna Torre [...] calling for lab results. Please advise. Lexy HARMON documented in this encounterUniversity Hospitals St. John Medical Center07-18-2023 Telephone encounter Note * Telephone Encounter - Megan Ardon LPN - 03/31/2023 11:15 AM EDT Patient called to schedule appointment with Dr Joyner. Checked the location of Ed and no available appt until 05/25. Checked for other providers and patient stated she will call her PCP. Call disconnected [facility] Health [id number] Miscellaneous Notes* Telephone Encounter - Megan Ardon LPN - 03/31/2023 11:15 AM EDT Patient called to schedule appointment with Dr Joyner. Checked the location of Ed and no available appt until 05/25. Checked for other providers and patient stated she will call her PCP. Call disconnected documented in this encounterSUpper Valley Medical [id number] Instructions* Patient Instructions* Merced Hutchinson APRN.[facility] - 03/30/2023 9:02 AM EDT Schedule with GI, needs seen [facility]. Can try and see what soonest is with [facility] Can also see if Dr. Martinez or Dr. Lau can see you sooner. [facility] Providers: Derik Evans M.D., F.A.C.G., F.A.C.PNitish Kingston M.D. Janet Euceda.-Kimmie. Kaylan Patiño, C.N.S. [address], [address] [facility] [place], [place] [address] Main # [phone] [facility] Address: [address] [place] [address] [address], [place] [address] documented in this encounterUniversity Hospitals St. John Medical Center07-17-2023 History of Present illness Narrative* Merced Hutchinson [...] follow up. Seen in the ER at [facility] on 03/23. ER note and hospital records are available in Care everywhere. She actually was admitted to [facility] from [facility] on 03/14 and discharged 03/16 then returned to ER 03/23. Diagnosed with acute on chronic pancreatitis. She had an MRCP and was referred to Dr. Martinez for GI follow up. MRCP showed resolution of mild pancreatitis and no choledocholithiasis. Had just been in [facility] 02/25- 02/28 for pancreatitis also. Prior hysterectomy [...] Benign liver cyst 05/24/2010 CT scan at [facility] 11/2009 and 04/2010 showe 4 mm increase in size. No pain. No elevated LFTs on 03/11/2010. Calculus of kidney 05/17/[address] Nicolas: Hospitalized age 20, and again later -- no procedures so far ([facility]) Cancer (HCC) COVID-19 virus infection 10/07/202109/2021 Diverticulosis Dysmenorrhea Hemorrhoids History of blood transfusion Impaired fasting glucose 05/17/2008 Sugar 104 fasting, 04/21 Marijuana use 07/10/2020 ER visit 07/06/2020, [place] MIGRAINE 05/17/2008 Has used imitrex with good response; Keeps Vicodin on hand when needed; Ovarian cyst 07/15/2012 Pancreatitis Smoker 05/17/2008 Started age 26, 09/15 a PPD ALLERGIES: Reviewed and updated ALLERGIES Allergen Reactions Penicillins Rash Cephalexin Itching Chlorhexidine Rash Skin rash Toradol [Ketorolac] Rash Tramadol Rash Patient reports no allergy to Tramadol. Asa [Salicylates] Other: See Comments ulcers Contrast Dye [Iodin* Shortness of Breath Ibuprofen GI Upset Prednisone Other: See Comments makes agitated and mean MEDICATIONS: Reviewed and updated Current Outpatient Medications Medication Sig dlgqlz-pqkfbjxm-qsipqro (CREON 3) 3,000-9,500- 15,000 unit delayed release [...] is to the right side. MRCP in [facility] showed resolution of mild pancreatitis. Has not set up GI follow up. Advised see GI [facility] since still having issues. Can set up with general surgery to discuss scopes if not able to get in with GI soon. Can check with [facility] GI, [facility] GI, Dr. Martinez, and [facility] in [place] to see where she can be seen [...] appointment.. Merced Hutchinson APRN.MANUELITO documented in this encounterUniversity Hospitals St. John Medical Center07-13-2023 Miscellaneous Notes* Telephone Encounter - Silverio Haley MD - 03/26/2023 9:13 PM EDT Noted * Telephone Encounter - Nunu Carcamo RN - 03/25/2023 10:16 AM EDT Patient phoned for urine culture results done on 03-18-23 and given results. Patient reports she was seen in [facility] ER on 03-19 and 03-23 for right side/center to upper torso and back pain. Reports the pain continues to come and go and at times moderate pain. Reports her urine is dark yellow. Advised p atient to increased water intake and patient agreeable. Patient scheduled a ER f/u visit for 20 min. Re-scheduled patient for a 40 min ER f/u. documented in this encounterUniversity Hospitals St. John Medical Center07-05-2023 Miscellaneous Notes* Telephone Encounter - Silverio Haley [...] : NO Protocols used: Abdominal Pain - Eiorz-AVYBE-VP documented in this encounterUniversity Hospitals St. John Medical Center07-03-2023 Note Discharge Instructions Thank you for allowing [facility] to assist you with your healthcare needs. The following is importantdischarge information regarding your hospital visit. Your Care Team Pierce Mars APRN Your Diagnosis Acute pancreatitis Hypercholesteremia Anxiety Chronic [...] Why: follow-up for chronic pancreatitis Where: [address] [place] [address]- [phone] Follow Up with MERCED HUTCHINSON APRN-SALES MERCHANDISING SPECIALIST When Within 5 to 7 days Why: 1-2 weeks for post-hospital follow-up Where: [address] [place] [address]- [phone] The Following Activity and Diet Have Been [...] When Why Instructions Last Dose New acetaminophen-hydrocodone (Raymond 325- 5 mg oral tablet) 1 tab(s) by mouth Four (4) times a day as needed for Pain, scale 4-6 Acute pancreatitis Duration: 3 Days Pickup at [facility]/pharmacy #[id number] 03/16/23 at 1:54pm New prochlorperazine (prochlorperazine 10 mg oral tablet) 1 tab(s) by mouth Three (3) times a day as needed for Nausea/Vomiting Duration: 5 Days Pickup at [facility]/pharmacy #[id number] 03/16/23 at 0950am Unchanged albuterol (albuterol MDI [...] a day 03/16/23 at 0950am Pharmacy Information [facility]/pharmacy #[id number]: [address] [place], [place] [id number] [phone] What How Much When Comments Stop Taking [...] You may work with a diet and director of food and nutrition (dietitian) to make aneating plan. Surgery to: [...] your urine pale yellow. General instructions Take unsg-xyn-lnzpqlu and prescription medicines only as told by your health care provider. These include vitamin supplements. Do not drive or use heavy machinery while taking prescription pain medicine. If you are taking prescription pain medicine, take actions to prevent or treat constipation. Your health care provider may recommend that you: ? Take an qlie-nyg-knqznnv or prescription medicine for constipation. ? Eat [...] 09/26/2016 Document Revised: 06/20/2019 Document Reviewed: 04/30/2018 [employer] Patient Education 2020 [employer] Additional Information VACCINATE! IT SAVES LIVES! Members of the community who have not yet received the COVID-19 vaccine and would like to receive it can visit one of [facility] vaccine clinics. There are many vaccine clinic locations within the [facility]. For locations and available times, please visit https://gettheshot.coronavirus.[place].gov/. It is important to note that some COVID mobile vaccine clinics are held outdoors and may be canceled in rainy or stormy conditions. To learn more about pediatric vaccinations (ages 5-11), we invite you to visit the [facility] webpage. https://www.[facility].org/pages/4686-Ycvwi-Zaoeulwoawk-Oxkdjoywki-Tvoeh-Tku stions.htmlTo learn more about the COVID-19 vaccine, we invite you to visit the CDC website for a list of frequently asked questions.https://www.cdc.gov/coronavirus/2019-ncov/vaccines/faq.html [facility] Patient Portal Access Instructions: Stay connected with your healthcare team and access your personal medical information anytime with the [facility] Patient Portal. Please follow the directions below to create your [employer] account: 1.Access the email account you provided upon registration to the hospital/physician office.2.Look for an invitation email from [facility].3.Open the email and access the invitation link: AcceptInvitation to [facility].4.Fill in the required xiong to create your account. To access your account, visit [email or web address]. Click the blue button labeled Access Patient [...] who you will allowto register on the [facility] Patient Portal for access to your information. You can also access the [facility] Patient Portal on the [employer] Anywhere mini. Simply click on Patient Portal and then log into your account. If you would like to receive a full copy of your medical records, please contact the [facility] Medical Records Department by calling [phone], Thursday through Thursday between 8 a.m. and [...] Call your local pharmacy or go to [email or web address] to find one close to you.3.Make use of household items: Use cat litter or old coffee grounds to dispose medications if other options arenot available. Mix your drugs with these household products, seal them in an airtight container andthrow it into the garbage. Call [facility]: [phone] to be sure your drugs can be [...] aware that I should contact my doctor. 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 Surgery [...] your urine pale yellow. General instructions Take rgkh-pqg-mbcdsze and prescription medicines only as told by your health care provider. These include vitamin supplements. Do not drive or use heavy machinery while taking prescription pain medicine. If you are taking prescription pain medicine, take actions to prevent or treat constipation. Your health care provider may recommend that you: ?Take an kibj-zas-kblhssa or prescription medicine for constipation. ?Eat foods [...] 09/26/2016 Document Revised: 06/20/2019 Document Reviewed: 04/30/2018 [employer] Patient Education 2020 [employer] Follow Up Care 03/15/2023 11:13:46 With:GAMA MARTINEZ MD Address: [address] [address]- [phone] When:5 to 7 days Comments:follow-up for chronic pancreatitis With:MERCED HUTCHINSON APRN-SALES MERCHANDISING SPECIALIST Address: [address] [place] [phone]- [phone] When:5 to 7 days Comments:1-2 weeks for post-hospital follow-up [facility] 07-03-2023 Note ORIGINAL EXAMINATION: MRCP03/16/2023 9:45 [...] Date: 03/16/2023 4:17:14 PM [facility]ing [facility] Evaluation + Plan noteExtracted from: Title:History and Physical Author:PIERCE MARS APRN-SALES MERCHANDISING SPECIALIST Date:03/15/23 1. Acute pancreatitis Acute on chronic, accompanied by worsening nausea and pain *Patient was just a [facility] and diagnosed with mild acute pancreatitis 02/25, [...] collaborating with physician, and documenting in chart. [facility] 07-02-2023 Note Date of Service 03/15/2023 Chief Complaint Abdominal pain, intractable nausea/vomiting History of Present Illness Patient is a 42-year-old female, who follows with Merced Hutchinson CNP with hyperlipidemia, anxiety andchronic low back pain, presented initially to [facility] with the chief complaint of abdominal pain. Patient states the pain is on the right side between upper and lower quadrants and started a few days ago. It has been accompanied by nausea and vomiting. She has been unable to keep food or fluids down since it started a few days ago. Patient was just admitted to [facility] from02/20-02/28/2023. She was initially admitted due to intractable headache and sodium 118. She was seen by neurology during this admission who ordered MRI/MRV of the brain and lumbar puncture. Patient maryjane cotter refused lumbar puncture. The MRI/MRV of the [...] given and patient was otherwise managed on Raymond. Patient improved and was discharged home on Raymond, prochlorperazine and medrol dose-pack (per neurology for [...] physician and case was discussed with the bathhouse keeper INORGANIC CHEMIST. Due to patient's intractable nausea and vomiting and ongoing problems with pancreatitis, the ED physician felt that patient should be transferred for a GI consult. Patient was transferred via squad to [facility] medical surgical unit for observation. We will consult Dr. Gama Martinez, GI, for recommendation. We will send patient for MRCP in the am. We will start LR @ 125cc/hr. Continue IV and PO pain medications and antiemetics. Start clear liquid diet. Repeat CBC, CMP and magnesium level in theam. Patient seen and evaluated on arrival to [facility]. She rates her pain as 10/10 but [...] nausea and pain *Patient was just a [facility] and diagnosed with mild acute pancreatitis 02/25, [...] by PIERCE MARS on 03/15/2023 02:52 PM [facility]06-30-2023 Miscellaneous Notes* Telephone Encounter - Merced Hutchinson APRN.CNP - 03/13/2023 10:56 AM EDT See separate phone encounter. documented in this encounterUniversity Hospitals St. [facility]06-28-2023 History of Present illness Narrative* Merced Hutchinson APRN.CNP - 03/11/2023 2:04 PM EDT SUBJECTIVE Sally Vargas is a 42 year old female here today for a hospital discharge follow up. Chief Complaint Patient presents with: Hospital F/U HPI Sally Vargas is a 42 year old female established patient of Silverio Haley MD who presents for hospital discharge follow up. Discharged from [facility] in [place], admitted on 02/20 and lukeivgowq80/17. Transferred from [facility]. No outreach completed. Admitted for pancreatitis, low sodium (lab error?), migraines. Lipase was high. Has had 3 episodes of pancreatitis in the last few years. Doesnot drink alcohol, none in almost 3 years. Has a family history of pancreatitis and DM. Last xknr9zuig 5.5%. Mild inflammatory changes to the pancrease on CT imaging. No gallbladder, removed in 1998. Triglycerides 3 weeks ago 179. Advised to see neuro for migraine follow up. [facility]eds to [facility]. Just seen in [facility] for cough. Still having cough. Her medications were reviewed today and her list is now up to date. Medications Current Outpatient Medications Medication Sig methylPREDNISolone (MEDROL, JO,) 4 mg Dose-Pack Follow dosing instructions, take with food. ayczpe-vqthyhre-tligxbr (CREON 3) 3,000-9,500- 15,000 unit delayed release [...] Disorder - 03/31/2016 (A priority) Comment: Seeing [facility]. Reactive Depression - 03/31/2016 (A priority) Comment: Seeing INORGANIC CHEMIST at Counseling center. Migraine Without Aura - [...] (C priority, Chronic) Comment: CT scan at [facility] 11/2009 and 04/2010 showe 4 mm increase in size. No pain. No elevated LFTs on 03/11/2010. Calculus of Kidney - 05/17/2008 (C priority) Comment: Sees Dr. Nicolas: Hospitalized age 20, and again later -- no procedures so far ([facility], [facility]) Smoker - 05/17/2008 (C priority) Comment: Started [...] for recheck. COCO Mclean documented in this encounterUniversity Hospitals St. John Medical Center06-26-2023 History of Present illness Narrative* Kylee Davenport RT(R) - 03/09/2023 5:50 PM EDT Radiology Service [...] DATA: Not applicable SIGNED BY: RT Olivier(R) March 09, 2023 5:45 PM documented in this encounterUniversity Hospitals St. John Medical Center06-26-2023 History of Present illness Narrative* CHAZ Combs - 03/09/2023 5:45 PM EDT This note was created using Fotologriter. Subjective Sally Vargas is a 42 year [...] Benign liver cyst 05/24/2010 CT scan at [facility] 11/2009 and 04/2010 showe 4 mm increase in size. No pain. No elevated LFTs on 03/11/2010. Calculus of kidney 05/17/[address] Nicolas: Hospitalized age 20, and again later -- no procedures so far ([facility], [facility]) Cancer (HCC) COVID-19 virus infection 10/07/202109/2021 Diverticulosis [...] esophagitis, 2 cm hiatal hernia EGD W/O [facility] SPEC VARICIES INJ 05/28/2020 LIG/TRNSXJ FLP TUBE [...] ER evaluation. CHAZ Combs documented in this encounterUniversity Hospitals St. John Medical Center06-06-2023 NoteHNO ID: [id number] Author: Mala Almendarez MD Service: ? Author [...] visit. Either the patient or their legal petroleum products sales representative has been informed of the risks [...] Benign liver cyst 05/24/2010 CT scan at [facility] 11/2009 and 04/2010 showe 4 mm increase in size. No pain. No elevated LFTs on 03/11/2010. Calculus of kidney 05/17/[address] Nicolas: Hospitalized age 20, and again later -- no procedures so far ([facility], [facility]) Cancer (HCC) COVID-19 virus infection 10/07/202109/2021 Diverticulosis [...] Patient reports no allergy (more content not included)...[facility]06-06-2023 History of Present illness Narrative* Mala [...] visit. Either the patient or their legal petroleum products sales representative has been informed of the risks [...] Benign liver cyst 05/24/2010 CT scan at [facility] 11/2009 and 04/2010 showe 4 mm increase in size. No pain. No elevated LFTs on 03/11/2010. Calculus of kidney 05/17/[address] Nicolas: Hospitalized age 20, and again later -- no procedures so far ([facility], [facility]) Cancer (HCC) COVID-19 virus infection 10/07/202109/2021 Diverticulosis [...] difficulties. Mala Almendarez MD documented in this encounterUniversity Hospitals St. John Medical Center06-05-2023 Instructions* Patient Instructions* Merced Hutchinson APRN.SALES MERCHANDISING SPECIALIST - 02/16/2023 8:49 AM EDT Try and drink 3 bottles of water per day. Keep trying to cut back on smoking. Get labs today. Wound Center with [facility] for the left breast wound. PT for vestibular therapy. documented in this encounterUniversity Hospitals St. John Medical Center06-05-2023 History of Present illness Narrative* Merced Hutchinson APRN.MANUELITO - 02/16/2023 8:38 AM EDT SUBJECTIVE Sally Vargas is a 42 year old female here today for a check up on her medical problems. Chief Complaint Patient presents with: Establish Care ER F/U: had 3 visits to the ER last week due to passing out. Wound Check: left breast on going for several months HPI Sally Vargas is a 42 year old female established patient of our practice, switching PCP withinthe practice. Presents today with concerns of an ER follow up. , a week ago, went in toER for passing out. Went to [facility]. The next night she was outside, got lightheaded/dizzy, and passed out again, taken to [facility] Then the following day felt dizzy again, called squad and went back to [facility] and advised to follow up with PCP. [...] about a year ago). Had EKG in [facility]. Stresstest on treadmill in 2020, suboptimal test, [...] Disorder - 03/31/2016 (A priority) Comment: Seeing [facility]. Reactive Depression - 03/31/2016 (A priority) Comment: Seeing INORGANIC CHEMIST at [facility]ing center. Migraine Without Aura - [...] (C priority, Chronic) Comment: CT scan at [facility] 11/2009 and 04/2010 showe 4 mm increase in size. No pain. No elevated LFTs on 03/11/2010. Calculus of Kidney - 05/17/2008 (C priority) Comment: Sees Dr. Nicolas: Hospitalized age 20, and again later -- no procedures so far ([facility], [facility]) Smoker - 05/17/2008 (C priority) Comment: Started [...] Use - 07/10/2020 Comment: ER visit 07/06/2020, [place] Liver Cyst - 06/08/2020 Chronic Pain Syndrome [...] ICD10: T14.8XXA Refer to wound center with [facility], discussed care of the area until seen [...] medications.. Merced Hutchinson APRN-MANUELITO documented in this encounterUniversity Hospitals St. John Medical Center05-30-[address] Rosa [facility] February 10, 2023 6:16pm Note Date/Time February 10, 2023 3:46p [facility] Medical Records Department [address] [place] [address] Emergency Department Summary 02/10/23 MR#: [id number] Acct: [id number] Name: SALLY VARGAS Rep #:[id number] : [...] maybe I got that morphine dose in [place] previously patient has no new extremity complaint. No acute bowel or bladder changes, no other acute complaints [facility] Medical History Bipolar disorder Chronic [...] Ox 98 Oxygen Delivery Method Room Air [facility] Lab Data Attestation: I reviewed the [...] % (Auto) 60.2 Lymph % (Auto) 29.9 Bacon % (Auto) 5.3 Eos % (Auto) 2.4 [...] Sl. Cloudy Urine pH 6.5 Ur Specific [place] 1.015 Urine Protein Negative Urine Glucose (UA) [...] (Auto) Neut % (Auto) Lymph % (Auto) Bacon % (Auto) Eos % (Auto) Baso % [...] Color Urine Clarity Urine pH Ur Specific [place] Urine Protein Urine Glucose (UA) Urine Ketones [...] itching, irritation or possible allergic reaction, use xqjo-yzg-fgjuszu antihistamines and Pepcid if needed for possible allergic reaction. Disposition Disposition: Home, Self Care What to do if you have Problems For any increased pain, shortness of breath, bleeding, nausea or vomiting, chestpain, or any unexpected problems, contact your Primary Care Provider. Call [facility] ([phone]) or report to the closest Emergency Room. Call 911 if necessary. 02/10/231815 <Electronically signed by Marcelino Rosa DO> Cosigner Signature (if applicable): CC: CHAZ Arias ~ Signed [facility] Work Phone: [phone]) 913-276605-10-2023 Hospital Discharge instructions Patient Education 01/21/2023 15:58:33 [...] or higher after 2 days on antibiotics [id number] [employer]. [address] [place] [address]. All rights reserved. This information is not intended as a substitute for professional medical care. Always follow yourhealthcare professional's instructions. Follow Up Care 01/21/2023 15:10:03 With:MERCED HUTCHINSON Address: [address] [place] [phone]- [phone] When:2-4 days Comments:Make an appointment in 2 to 4 days with your physician. Return if you are worse in any way. [facility] 05-10-2023 Note Discharge Instructions Thank you for allowing [facility] to assist you with your healthcare needs. [...] you are worse in any way. Where: [address] [place] [phone] Allergies Advil Contrast dye Flagyl Motrin NSAIDS [...] Duration: 10 Days Printed Prescription Unchanged acetaminophen-hydrocodone (Raymond 325- 5 mg oral tablet) 1 tab(s) by mouth Every 6 hours as needed for as needed for pain Abdominal pain Duration: 3 Days Unchanged acetaminophen-hydrocodone (Raymond 325- 5 mg oral tablet) 1 tab(s) by mouth Every 6 hours Cellulitis Duration: 3 Days Unchanged acetaminophen-hydrocodone (Raymond 325- 5 mg oral tablet) 1 tab(s) [...] or higher after 2 days on antibiotics [id number] [employer] [facility]. [address] [place] [address]. All rights reserved. This information is not intended as a substitute for professional medical care. Always follow yourhealthcare professional's instructions. Additional Information VACCINATE! IT SAVES LIVES! Members of the community who have not yet received the COVID-19 vaccine and would like to receive it can visit one of [facility] vaccine clinics. There are many vaccine clinic locations within the [facility]. For locations and available times, please visit www.gettheshot.coronavirus.[place].gov/. It is important to note that some COVID mobile vaccine clinics are held outdoors and may be canceled in rainy or stormy conditions. To learn more about pediatric vaccinations (ages 5-11), we invite you to visit the [facility] webpage. https://www.[facility].org/pages/6270-Yrecc-Odwkbxhsgbc-Lvvzlxidxw-Oackx-Ksh stions.htmlTo learn more about the COVID-19 vaccine, we invite you to visit the CDC website for a list of frequently asked questions. https://www.cdc.gov/coronavirus/2019-ncov/vaccines/faq.html [facility] Patient Portal Access Instructions: Stay connected with your healthcare team and access your personal medical information anytime with the [facility] Patient Portal. If you would like a full copy of your medical records please contact the [facility] Medical Records Department Thursday through Thursday between 8a.m. and 4:30p.m. Please follow the directions below to access the portal: 1.Access the email account you provided upon registration to the hospital.2.Look for an invitation email from [facility].3.Open the email and access the invitation link: Accept Invitation to [facility]4.Fill in the required xiong to create your account. Sign into [email or web address] with your username and password that you [...] you will allow to register on the [facility] Patient Portal for access to your information. You can also access the [facility] Patient Portal on the [employer] mini. Simply click on Health Records under MRO and then click on the [facility] logo. HOW TO SAFELY DISPOSE OF PRESCRIPTION [...] Call your local pharmacy or go to [email or web address] to find one close to you.3.Make use of household items: Use cat litter or old coffee grounds to dispose medications if other options arenot available. Mix your drugs with these household products, seal them in an airtight container andthrow it into the garbage. Call [facility]: [phone] to be sure your drugs can be [...] aware that I should contact my doctor. 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 She checked with [facility] Wound [facility], Dr there does not take her insurance. Any other recommendations? * Telephone Encounter - Cintia Clay LPN - 01/21/2023 1:25 PM EDT Can you file new order for consult? * Telephone Encounter - Robbin Hernandez MD - 01/21/2023 12:54 PM EDT No additional medications recommended. Refer to [facility]. * Telephone Encounter - Renetta Hernández RN - 01/20/2023 4:54 PM EDT Patient calling and reports she was seen by Dr. Hernandez on 01/19 for her open wound to left breast.Patient states she was referred to [facility]. Patient calling to update provider and PCP that the [facility] wound center does not take her insurance. Patient asking what should she do? Patient also states she has completed the doxycycline and mupirocin and asks if additional medication should be ordered? Please advise patient. Thank you. documented in this encounterUniversity Hospitals St. John Medical Center05-08-2023 History of Present illness Narrative* Robbin Hernandez MD - 01/19/2023 7:36 PM EDT This note was created using [employer]ot[employer]. Subjective Patient presents with: ED Follow-up Sally Vargas is a 42 year old female here with her female friend, for a sore of the left breast ongoing for 2 months, with purulent drainage off and on. She was seen in [facility] and it seemswas seen in [facility] ER twice. Records were limited on Care Everywhere. She was on doxycycline and mupirocin. Pain was 9/10. She was told her wound was negative for MRSA. She's had similar issues in the past, and was admitted at [facility] 2 years ago for IV antibiotics. Mammogram [...] TABLET - CONSULT TO NON-[facility] FACILITY - [facility]. Patient indicated understanding and willingness to follow recommendations. Follow up with her PCP. Robbin Hernandez MD documented in this encounterUniversity Hospitals St. John Medical Center05-04-2023 Hospital Discharge instructions Patient Education 01/15/2023 11:15:50 [...] a problem: Bleeding that soaks the dressing [place] fluid weeping from the wound Increased drainage [...] increased fatigue, or a loss of appetite [phone] [facility]. [address] [place] [address]. All rights reserved. This information is not intended as a substitute for professional medical care. Always follow yourhealthcare professional's instructions. Follow Up Care 01/15/2023 10:59:24 With:MERCED HUTCHINSON Address: [address] [place] [phone]- [phone] When:2-4 days [facility] 05-04-2023 Note Discharge Instructions Thank you for allowing [facility] to assist you with your healthcare needs. The following is importantdischarge information regarding your hospital visit. Diagnosis from Today's Visit Breast Pain/Discharge What to Do Next Instructions from Your Care Team No qualifying data available. Post Acute Orders No qualifying data available. You Need to Schedule the Following Appointments Follow Up with MERCED HUTCHINSON When Within 2-4 days Where: [address] [place] [phone] Allergies Advil Contrast dye Flagyl Motrin NSAIDS [...] Duration: 7 Days Printed Prescription Unchanged acetaminophen-hydrocodone (Raymond 325- 5 mg oral tablet) 1 tab(s) by mouth Every 6 hours as needed for as needed for pain Abdominal pain Duration: 3 Days Unchanged acetaminophen-hydrocodone (Raymond 325- 5 mg oral tablet) 1 tab(s) by mouth Every 6 hours Cellulitis Duration: 3 Days Unchanged acetaminophen-hydrocodone (Raymond 325- 5 mg oral tablet) 1 tab(s) [...] bone and tooth development in a nursing infant. Do not breastfeed while you are taking doxycycline. Doxycycline can cause permanent yellowing or graying of the teeth in children younger than 8 years old. Children should use doxycycline only in cases of severe or life-threatening conditions such as anthrax or [place] spotted fever. The benefit of treating a [...] may report side effects to FDA at 4-425-EEO-5487. What other drugs will affect doxycycline? Sometimes it is not safe to use certain medications at the same time. Some drugs can affect your blood levels of other drugs you take, which may increase side effects or make the medications less effective. Other drugs may affect doxycycline, including prescription and neyw-gkv-ccwrovl medicines, vitamins, and herbal products. Tell your [...] to ensure that the information provided by [employer]. ('[employer]') is accurate, up-to-date, and complete, but no guarantee is made to that effect. Drug information contained herein may be time sensitive. [employer] information has been compiled for use by healthcare practitioners and consumers in the [place] and therefore [employer] does not warrant that uses outside of the [place] are appropriate, unless specifically indicated otherwise. [employer] drug information does not endorse drugs, diagnose patients or recommend therapy. [employer] drug information isan informational resource designed to [...] effective or appropriate for any given patient. [facility] does not assume any responsibility for any aspect of healthcare administered with the aid of information [facility] provides. The information contained herein is not intended to cover all possible uses, directions, precautions, warnings, drug interactions, allergic reactions, or adverse effects. If you have questions about the drugs you are taking, check with your doctor, nurse or pharmacist. Copyright 3003-3602 [employer]. Version: .. Revision Date: 07/18/2020. mupirocin topical (myoo PEER oh sin) Bactlev, Tereso, Tereso AT Kit What is the most important [...] to treat skin infections such as impetigo (UJ-yf-XUK-go) or a 'Staph' infection of the skin. [...] may report side effects to FDA at 4-150-ZXY-6848. What other drugs will affect mupirocin topical? It is not likely that other drugs you take orally or inject will have an effect on topically applied mupirocin. But many drugs can interact with each other. Tell each of your health care providers about all medicines you use, including prescription and bqhe-jxq-xhtzpzj medicines, vitamins, and herbal products. Where can I get more information? Your pharmacist can provide more information about mupirocin topical. Remember, keep this and all other medicines out of the reach of children, never share your medicines with others, and use this medication only for the indication prescribed. Every effort has been made to ensure that the information provided by [employer]. ('Multum') is accurate, up-to-date, and complete, but no guarantee is made to that effect. Drug information contained herein may be time sensitive. [employer] information has been compiled for use by healthcare practitioners and consumers in the [place] and therefore [employer] does not warrant that uses outside of the [place] are appropriate, unless specifically indicated otherwise. [employer]'s drug information does not endorse drugs, diagnose patients or recommend therapy. [employer] drug information isan informational resource designed to [...] effective or appropriate for any given patient. [facility] does not assume any responsibility for any aspect of healthcare administered with the aid of information [facility] provides. The information contained herein is not intended to cover all possible uses, directions, precautions, warnings, drug interactions, allergic reactions, or adverse effects. If you have questions about the drugs you are taking, check with your doctor, nurse or pharmacist. Copyright 5691-5284 [facility] [place]. Version: 4.01. Revision Date: 02/02/2017. mupirocin topical (myoo PEER oh sin) Bactroban, Centany, Centany AT Kit What is the most [...] to treat skin infections such as impetigo (NP-ok-LKA-go) or a 'Staph' infection of the skin. [...] may report side effects to FDA at 4-044-WXC-6768. What other drugs will affect mupirocin topical? It is not likely that other drugs you take orally or inject will have an effect on topically applied mupirocin. But many drugs can interact with each other. Tell each of your health care providers about all medicines you use, including prescription and hbls-qpm-fdnalsh medicines, vitamins, and herbal products. Where can I get more information? Your pharmacist can provide more information about mupirocin topical. Remember, keep this and all other medicines out of the reach of children, never share your medicines with others, and use this medication only for the indication prescribed. Every effort has been made to ensure that the information provided by [employer]. ('[employer]') is accurate, up-to-date, and complete, but no guarantee is made to that effect. Drug information contained herein may be time sensitive. [employer] information has been compiled for use by healthcare practitioners and consumers in the [place] and therefore [employer] does not warrant that uses outside of the [place] are appropriate, unless specifically indicated otherwise. [employer] drug information does not endorse drugs, diagnose patients or recommend therapy. [employer] drug information isan informational resource designed to [...] effective or appropriate for any given patient. [facility] does not assume any responsibility for any aspect of healthcare administered with the aid of information [facility] provides. The information contained herein is not intended to cover all possible uses, directions, precautions, warnings, drug interactions, allergic reactions, or adverse effects. If you have questions about the drugs you are taking, check with your doctor, nurse or pharmacist. Copyright 4585-8827 [facility]. Version: 4.01. Revision Date: 02/02/2017. Education Materials [...] a problem: Bleeding that soaks the dressing [place] fluid weeping from the wound Increased drainage [...] increased fatigue, or a loss of appetite 1821-8922 [facility]. [address] [place] [address]. All rights reserved. This information is not intended as a substitute for professional medical care. Always follow yourhealthcare professional's instructions. Additional Information VACCINATE! IT SAVES LIVES! Members of the community who have not yet received the COVID-19 vaccine and would like to receive it can visit one of [facility] vaccine clinics. There are many vaccine clinic locations within the [facility]. For locations and available times, please visit www.[email or web address].[place].gov/. It is important to note that some COVID mobile vaccine clinics are held outdoors and may be canceled in rainy or stormy conditions. To learn more about pediatric vaccinations (ages 5-11), we invite you to visit the [facility] webpage. https://www.[facility].org/pages/7169-Vhedb-Yynvbobylve-Sywiisqvoz-Rzehq-Utj stions.htmlTo learn more about the COVID-19 vaccine, we invite you to visit the CDC website for a list of frequently asked questions. https://www.cdc.gov/coronavirus/2019-ncov/vaccines/faq.html [facility] Patient Portal Access Instructions: Stay connected with your healthcare team and access your personal medical information anytime with the [facility] Patient Portal. If you would like a full copy of your medical records please contact the [facility] Medical Records Department Thursday through Thursday between 8a.m. and 4:30p.m. Please follow the directions below to access the portal: 1.Access the email account you provided upon registration to the [facility].2.Look for an invitation email from [facility].3.Open the email and access the invitation link: Accept Invitation to [facility]4.Fill in the required xiong to create your account. Sign into [email or web address] with your username and password that you [...] you will allow to register on the [facility] Patient Portal for access to your information. You can also access the [facility] Patient Portal on the Chromasun mini. Simply click on Health Records under MRO and then click on the Crystal logo. [...] Call your local pharmacy or go to http://bit.Fashfix/1N9Th1d to find one close to you.3.Make use of household items: Use cat litter or old coffee grounds to dispose medications if other options arenot available. Mix your drugs with these household products, seal them in an airtight container andthrow it into the garbage. Call [facility]: [phone] to be sure your drugs can be [...] aware that I should contact my doctor. 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 Lexy Desouza LPN documented in this encounterUniversity [facility]23 Miscellaneous Notes* Telephone Encounter - Jigar Bernardo LPN - 01/14/2023 1:55 PM EDT Pt notified of same. Jigar Bernardo LPN * Telephone Encounter - Jigar Bernardo LPN - 01/14/2023 1:52 PM EDT ----- Message from Isabel Arias PA-C sent at 01/14/2023 11:43 AM EDT ----- Normal mammogram. Repeat in 1 year. documented in [address] encounterUniversity [facility]. [facility]05-03-2023 Miscellaneous Notes* Letter - Mammography Coordinator - 01/14/2023 9:45 AM EDT January 15, 2023 PID: [id number] Sally Vargas [address] [place] [address] Dear Ms. Vargas, We are pleased to [...] report will be kept on file at [facility] as part of your permanent medical record and are available for your continuing care. Thank you for allowing us to help in meeting your health care needs. Sincerely, Dr. Rosenberg Interpreting Radiologist [facility] (Normal over 40) documented in this encounterUniversity Hospitals St. [facility]04-26-2023 Note ORIGINAL EXAMINATION: SOFT TISSUE ULTRASOUND OF [...] Date: 01/07/2023 3:23:54 PM Ordering Provider: ETHAN HENDERSON [facility]04-26-2023 Note ORIGINAL EXAMINATION: SOFT TISSUE ULTRASOUND [...] Sign Date: 01/07/2023 3:23:54 PM Ordering Provider: [facility]04-26-2023 History of Present illness Narrative* Nasrin Dunlap PA-C - 01/07/2023 11:50 AM EDT Images from the original note were not included. This note was created using Clueyter. Subjective Sally Vargas is a 42 year old female. HPI Patient presents with an infection on the left breast over the past week. She has had increased pain, some nausea over the past couple of days. She has a history of a breast abscess on that breast 2 years ago and was admitted at [facility]. A culture that was performed here was [...] Benign liver cyst 05/24/2010 CT scan at [facility] 11/2009 and 04/2010 showe 4 mm increase in size. No pain. No elevated LFTs on 03/11/2010. Calculus of kidney 05/17/[address] Nicolas: Hospitalized age 20, and again later -- no procedures so far ([facility], [facility]) Cancer (HCC) COVID-19 virus infection 10/07/202109/2021 Diverticulosis [...] esophagitis, 2 cm hiatal hernia EGD W/O [facility] SPEC VARICIES INJ 05/28/2020 LIG/TRNSXJ FLP TUBE [...] ED. Nasrin Dunlap PA-C documented in this encounterUniversity Hospitals St. [facility]04-23-2023 Hospital Discharge instructions Patient Education 01/04/2023 12:33:52 [...] of your face Difficulty talking or seeing 3436-7862 [facility]. [address] [place] [address], [place] [address]. All rights reserved. This information is not intended as a substitute for professional medical care. Always follow yourhealthcare professional's instructions. Follow Up Care 01/04/2023 12:06:58 With:[facility] neurology Address:Unknown When:2-4 days Comments:Schedule appointment as soon as possibleIncrease diet from pedialyte to brat to full With:MARCELINO ALBERT Address: [address] [place] [id number] Business (1) When:2-4 days [facility] 04-23-2023 Emergency department Discharge summary Discharge Instructions Thank you for allowing [facility] to assist you with your healthcare needs. The following is importantdischarge information regarding your hospital visit. Diagnosis from Today's Visit Migraine Headache What to Do Next Instructions from Your Care Team No qualifying data available. Post Acute Orders No qualifying data available. You Need to Schedule the Following Appointments Follow Up with [facility] neurology When Within 2-4 days Why: Schedule appointment as soon as possible Increase diet from pedialyte to brat to full Follow Up with MARCELINO ALBERT When Within 2-4 days Where: [address] [place] [address] [facility] (1) Allergies Advil Contrast dye Flagyl Motrin NSAIDS Toradol Toradol IV/IM Zofran aspirin penicillin Medications Please ask your primary doctor or pharmacist before taking any other medication not listed, including over the counter drugs, herbal medications, vitamins and or supplements as they may interact withyour home medications. What How Much When Why Instructions Last Dose Unchanged acetaminophen- hydrocodone (Raymond 325- 5 mg oral tablet) 1 tab(s) by mouth Every 6 hours as needed for as needed for pain Abdominal pain Duration: 3 Days Unchanged acetaminophen-hydrocodone (Raymond 325- 5 mg oral tablet) 1 tab(s) by mouth Every 6 hours Cellulitis Duration: 3 Days Unchanged acetaminophen-hydrocodone (Raymond 325- 5 mg oral tablet) 1 tab(s) [...] of your face Difficulty talking or seeing 7163-3108 [facility]. [address] [place] [address]. All rights reserved. This information is not intended as a substitute for professional medical care. Always follow yourhealthcare professional's instructions. Additional Information VACCINATE! IT SAVES LIVES! Members of the community who have not yet received the COVID-19 vaccine and would like to receive it can visit one of [facility] vaccine clinics. There are many vaccine clinic locations within the [facility]. For locations and available times, please visit www.[email or web address].[place].gov/. It is important to note that some COVID mobile vaccine clinics are held outdoors and may be canceled in rainy or stormy conditions. To learn more about pediatric vaccinations (ages 5-11), we invite you to visit the [facility] webpage. https://www.[facility].org/pages/7960-Gqvhy-Yztxhjbneny-Htvoqlpwph-Zhbof-Zev stions.htmlTo learn more about the COVID-19 vaccine, we invite you to visit the CDC website for a list of frequently asked questions. https://www.cdc.gov/coronavirus/2019-ncov/vaccines/faq.html [facility] Patient Portal Access Instructions: Stay connected with your healthcare team and access your personal medical information anytime with the [facility] Patient Portal. If you would like a full copy of your medical records please contact the [facility] Medical Records Department Thursday through Thursday between 8a.m. and 4:30p.m. Please follow the directions below to access the portal: 1.Access the email account you provided upon registration to the [facility].2.Look for an invitation email from [facility].3.Open the email and access the invitation link: Accept Invitation to [facility]4.Fill in the required xiong to create your account. Sign into [email or web address] with your username and password that you [...] you will allow to register on the [facility] Patient Portal for access to your information. You can also access the [facility] Patient Portal on the Chromasun mini. Simply click on Health Records under HealthData and then click on the Meetrics logo. HOW TO SAFELY DISPOSE OF PRESCRIPTION [...] Call your local pharmacy or go to http://bit.ly/7P5Uq0m to find one close to you.3.Make use of household items: Use cat litter or old coffee grounds to dispose medications if other options arenot available. Mix your drugs with these household products, seal them in an airtight container andthrow it into the garbage. Call [facility]: [phone] to be sure your drugs can be [...] aware that I should contact my doctor. 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 * Telephone Encounter - Merced Hutchinson APRN.CNP - 12/26/2022 2:47 PM EDT Will send in cough syrup that patient is requesting for short supply to use until able to start Flovent * Telephone Encounter - Sallie Benitez LPN - 12/26/2022 2:28 PM EDT Called [facility] in [place] and was told insurance does cover it however they do not have it in stock and it was ordered but will not arrive until Thursday. Called [facility] in [place] and was told not in stock and [...] medication that was talked about at appointment. [facility] ispharmacy. Paradise Haley RN documented in this encounterUniversity Hospitals St. [facility]04-14-2023 Miscellaneous Notes* Telephone Encounter - Nunu Carcamo [...] go to for evaluation. documented in this encounterUniversity Hospitals St. [facility]04-12-2023 Hospital Discharge instructions Patient Education 12/24/2022 21:03:31 [...] for 8 hours or increasing bladder pressure 5723-8932 [facility]. [address] [place] [address]. All rights reserved. This information is not [...] foods again, start with small amounts of tumd-eb-kuxkwm, low- fat foods. These include apple sauce, [...] increase stomach acid. Don't use aspirin or bcoe-uwg-hqgmttf pain and fever medicines, if possible. This includes nonsteroidal anti-inflammatory drugs (NSAIDs). Lose excess weight. Finish eating at least 2 hours before you go to bed or lie down. Raise the head of your bed. 7029-7253 [facility]. [address] [place] [address], [place] [address]. All rights reserved. This information is not intended as a substitute for professional medical care. Always follow yourhealthcare professional's instructions. Follow Up Care 12/24/2022 19:35:27 With:Follow up with primary care provider Address:Unknown When:2-4 days [facility] 04-12-2023 Note ORIGINAL EXAMINATION: CT OF [...] Date: 12/24/2022 9:23:01 PM Ordering Provider: MARCELA [facility]04-12-2023 Note Discharge Instructions Thank you for allowing [facility] to assist you with your healthcare needs. [...] for 8 hours or increasing bladder pressure 9496-8741 [facility]. [address] [place] [address], [place] [address]. All rights reserved. This information is not [...] foods again, start with small amounts of cyny-wq-tvdgsd, low- fat foods. These include apple sauce, [...] increase stomach acid. Don't use aspirin or bhrp-pzj-hvmpswv pain and fever medicines, if possible. This includes nonsteroidal anti-inflammatory drugs (NSAIDs). Lose excess weight. Finish eating at least 2 hours before you go to bed or lie down. Raise the head of your bed. 4160-1846 [facility]. [address] [place] [address]. All rights reserved. This information is not intended as a substitute for professional medical care. Always follow yourhealthcare professional's instructions. Additional Information VACCINATE! IT SAVES LIVES! Members of the community who have not yet received the COVID-19 vaccine and would like to receive it can visit one of [facility] vaccine clinics. There are many vaccine clinic locations within the [facility]. For locations and available times, please visit www.gettheshot.coronavirus.[place].gov/. It is important to note that some COVID mobile vaccine clinics are held outdoors and may be canceled in rainy or stormy conditions. To learn more about pediatric vaccinations (ages 5-11), we invite you to visit the [facility] webpage. https://www.[facility].org/pages/6125-Qeiym-Rjngyyzirez-Tmfvlebgyp-Bjsjj-Zxm stions.htmlTo learn more about the COVID-19 vaccine, we invite you to visit the CDC website for a list of frequently asked questions. https://www.cdc.gov/coronavirus/2019-ncov/vaccines/faq.html [facility] Patient Portal Access Instructions: Stay connected with your healthcare team and access your personal medical information anytime with the [facility] Patient Portal. If you would like a full copy of your medical records please contact the [facility] Medical Records Department Thursday through Thursday between 8a.m. and 4:30p.m. Please follow the directions below to access the portal: 1.Access the email account you provided upon registration to the [facility].2.Look for an invitation email from [facility].3.Open the email and access the invitation link: Accept Invitation to [facility]4.Fill in the required xiong to create your account. Sign into [email or web address] with your username and password that you [...] you will allow to register on the [facility] Patient Portal for access to your information. You can also access the [facility] Patient Portal on the Comverging Technologies. Simply click on Health Records under MRO and then click on the Meetrics logo. HOW TO SAFELY DISPOSE OF PRESCRIPTION [...] Call your local pharmacy or go to http://Realvu Inc.Fashfix/3W5Kj0l to find one close to you.3.Make use of household items: Use cat litter or old coffee grounds to dispose medications if other options arenot available. Mix your drugs with these household products, seal them in an airtight container andthrow it into the garbage. Call [facility]: [phone] to be sure your drugs can be [...] reviewed and explained to me and I,SALLY LEBLANC understand my current condition and have read and understand these discharge instructions. I have received a written copy of the plan/instructions. If I have questions, I am aware that I should contactmy doctor. 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03-07-[address] Hood [facility] November 18, 2022 12:23pm Note Date/Time November 18, 2022 10:0 3am [facility] Medical Records Department [address] [place] [address] Emergency Department Summary 11/18/22 MR#: [id number] Acct: [id number] Name: BENJIShivaGIOVANNASALLY CHEPE Rep #:[id number] : 1980 42 From: [...] a few times, nonbloody, but more acidy. [facility] Medical History Bipolar disorder Chronic [...] % (Auto) 58.9 Lymph % (Auto) 29.9 Bacon % (Auto) 5.8 Eos % (Auto) 3.0 [...] Clarity Clear Urine pH 8.0 Ur Specific [place] 1.015 Urine Protein Negative Urine Glucose (UA) [...] your Primary Care Provider. Call [facility] ([phone]) or report to the closest Emergency Room. Call 911 if necessary. 11/18/22 1223 <Electronically signed by Stefano Hood MD> Cosigner Signature (if applicable): CC: CHAZ Arias ~ Signed [facility] Work Phone: [phone]) 152-698502-08-2023 History of Present illness Narrative* No Akers APRN.SALES MERCHANDISING SPECIALIST - 10/22/2022 1:07 PM EST Chief Complaint [...] agrees to the visit: Yes Patient Location: [facility] Sally Vargas is a 42 year old [...] Benign liver cyst 05/24/2010 CT scan at [facility] 11/2009 and 04/2010 showe 4 mm increase in size. No pain. No elevated LFTs on 03/11/2010. Calculus of kidney 05/17/[address] Nicolas: Hospitalized age 20, and again later -- no procedures so far ([facility]) Cancer (HCC) COVID-19 virus infection 10/07/202109/2021 Diverticulosis [...] Yes Comment: Occasional Drug use: Never EXAM: [facility] 08/10/2006 Limited exam as visit was completed [...] as needed for worsening/no improvement. No Akers APRN.SALES MERCHANDISING SPECIALIST documented in this encounterUniversity [facility] Hospital Discharge instructions Patient Education 10/12/2022 11:54:58 [...] help prevent kidney stones in the future. 6112-1228 [employer] [facility] [employer]. [address] [place] [address], [place] [address]. All rights reserved. This information is not intended as a substitute for professional medical care. Always follow yourhealthcare professional's instructions. Follow Up Care 10/12/2022 09:59:50 With:MARCELINO ALBERT MD Address: [address] [place] [id number] When:2-[address] [facility] 01-29-2023 Note Discharge Instructions Thank you for allowing [facility] to assist you with your healthcare needs. [...] MD When Within 2-4 days Where: [address] [place] [address]- Allergies Advil Contrast dye Flagyl NSAIDS Toradol [...] Duration: 7 Days Printed Prescription Changed acetaminophen-hydrocodone (Raymond 325- 5 mg oral tablet) 1 tab(s) by mouth Every 6 hours as needed for as needed for pain Kidney stone Duration: 3 Days Printed Prescription Changed acetaminophen-hydrocodone (Raymond 325- 5 mg oral tablet) 1 tab(s) by mouth Every 6 hours as needed for as needed for pain Abdominal pain Duration: 3 Days Changed acetaminophen-hydrocodone (Raymond 325- 5 mg oral tablet) 1 tab(s) [...] help prevent kidney stones in the future. 3251-8534 [employer] [facility] [employer]. [address] [place] [address]. All rights reserved. This information is not intended as a substitute for professional medical care. Always follow yourhealthcare professional's instructions. Additional Information VACCINATE! IT SAVES LIVES! Members of the community who have not yet received the COVID-19 vaccine and would like to receive it can visit one of [facility] vaccine clinics. There are many vaccine clinic locations within the [facility]. For locations and available times, please visit [email or web address]. It is important to note that some COVID mobile vaccine clinics are held outdoors and may be canceled in rainy orstormy conditions. To learn more about pediatric vaccinations (ages 5-11), we invite you to visit the [facility] webpage. [email or web address] learn more about the COVID-19 vaccine, we invite you to visit the [employer] website for a list of frequently asked questions. [email or web address] [facility] [employer] Patient Portal Access Instructions: Stay connected with your healthcare team and access your personal medical information anytime with the [employer] Patient Portal. If you would like a full copy of your medical records please contact the [facility] Medical Records Department Thursday through Thursday between 8a.m. and 4:30p.m. Please follow the directions below to access the portal: 1.Access the email account you provided upon registration to the hospital.2.Look for an invitation email from [facility].3.Open the email and access the invitation link: Accept Invitation to [facility] [employer]4.Fill in the required xiong to create your account. Sign into [email or web address] with your username and password that you [...] you will allow to register on the [facility] [employer] [employer] Patient Portal for access to your information. You can also access the [facility] [employer] [employer] Patient Portal on the Chromasun mini. Simply click on Health Records under MRO and then click on the [facility] logo. HOW TO SAFELY DISPOSE OF PRESCRIPTION [...] Call your local pharmacy or go to http://bit.Fashfix/6I3Ff0e to find one close to you.3.Make use of household items: Use cat litter or old coffee grounds to dispose medications if other options arenot available. Mix your drugs with these household products, seal them in an airtight container andthrow it into the garbage. Call [facility]: [phone] to be sure your drugs can be [...] aware that I should contact my doctor. 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 Lara Mercado LPN documented in this encounterUniversity Hospitals St. [facility]12-27-2022 Miscellaneous Notes* Telephone Encounter - Milly Henderson APRN.MANUELITO - 09/09/2022 11:30 AM EST I advised [...] and discussed that she was seen in [place] [facility] yesterday due to dental pain. [...] advise patient. Thank you. documented in this encounterUniversity Hospitals St. [facility]12-26-2022 History of Present illness Narrative* Holly Fraga APRN.MANUELITO - 09/08/2022 11:33 AM EST This note was created using NoteWriter. Subjective [...] that she is scheduled next month at [facility] to have all of her bottom teeth extricated Denies fever or chills. Denies inability to open or close mouth. Patient requesting Tramadol The history is provided by the patient. No english language learner tutor was used. Mouth/Lip Problem This is a [...] Benign liver cyst 05/24/2010 CT scan at [facility] 11/2009 and 04/2010 showe 4 mm increase in size. No pain. No elevated LFTs on 03/11/2010. Calculus of kidney 05/17/[address] Nicolas: Hospitalized age 20, and again later -- no procedures so far ([facility]) Cancer (HCC) COVID-19 virus infection 10/07/202109/2021 Diverticulosis [...] esophagitis, 2 cm hiatal hernia EGD W/O [facility] SPEC VARICIES INJ 05/28/2020 LIG/TRNSXJ FLP TUBE [...] few days ago [facility]. Patient requesting Tramadol, informed that the [facility] does not provide controlled substance RX Clindamycin and Naprosyn Encouraged to keep appointment with dental next month. Holly Fraga APRN.CNP documented in this encounterUniversity Hospitals St. [facility]12-07-2022 Miscellaneous Notes* Telephone Encounter - Rema Lehman [...] new PCP if staying with [facility] in [place] since she has stated, I'm not her [...] here. Pulled out the information for the [facility], and Pt said she has no money. Let her know it's only a dollar. Pt states, Never mind I'll take care of it myself., and hung up on me. Ashlyn Recio RN * Telephone Encounter - No Akers APRN.SALES MERCHANDISING SPECIALIST - 08/12/2022 11:43 AM EST See office [...] you. Ashlyn Recio RN documented in this encounterUniversity Hospitals St. [facility]12-01-2022 Miscellaneous Notes* Telephone Encounter - Paradise Ott RN - 08/14/2022 11:33 AM EST Images from the original note were not included. Provider: Rashid Figueroa CNP pharmacy requesting refill via [employer] . Please E-Scribe Last OV: 11-19-21 with Rashid Figueroa APRN.CNP Future OV: N/A Last prescribed: 01-27-22 Anticonvulsant [...] review Paradise Ott RN documented in this encounterUniversity Hospitals St. [facility]11-22-2022 Miscellaneous Notes* Telephone Encounter - Renetta Hernández RN - 08/05/2022 1:07 PM EST Detailed message left on pt's identified and secure VM. Renetta Hernández RN * Telephone Encounter - No Akers APRN.CNP - 08/05/2022 12:49 PM EST Script sent. Will need appt if no better. No Akers APRN.CNP * Telephone Encounter - Ivanna Torre RN - 08/05/2022 12:08 PM EST Patient calls to ask if provider would be willing to send in a prescription for Guaifenesin AC cough syrup. She forgot to ask last night during VV. Pended for review. Requesting it be sent to [facility] in [place]. Ivanna Torre RN documented in this encounterUniversity Hospitals St. [facility]11-21-2022 History of Present illness Narrative* No Akers APRN.SALES MERCHANDISING SPECIALIST - 08/04/2022 5:01 PM EST Chief Complaint [...] agrees to the visit: Yes Patient Location: [facility] Sally Vargas is a 41 year old [...] Benign liver cyst 05/24/2010 CT scan at [facility] 11/2009 and 04/2010 showe 4 mm increase in size. No pain. No elevated LFTs on 03/11/2010. Calculus of kidney 05/17/[address] Nicolas: Hospitalized age 20, and again later -- no procedures so far ([facility]) Cancer (HCC) COVID-19 virus infection 10/07/202109/2021 Diverticulosis Dysmenorrhea Hemorrhoids History of blood transfusion Impaired fasting glucose 05/17/2008 Sugar 104 fasting, 04/21 Marijuana use 07/10/2020 ER visit 07/06/2020, [place] [facility] 05/17/2008 Has used imitrex with good response; Keeps Vicodin on hand when needed; Ovarian cyst 07/15/2012 Pancreatitis Smoker 05/17/2008 Started age 26, 09/15 a PPD Previous Surgical History PAST SURGICAL [...] improvement. No Akers APRN.CNP documented in this encounterUniversity Hospitals St. [facility]11-15-2022 Miscellaneous Notes* Telephone Encounter - No Akers [...] an evaluation/assessment. Unfortunately, this will require a prgg-su-aywb evaluation so we can assess her lungs. [...] her. Lexy Desouza LPN documented in this encounterUniversity Hospitals St. [facility]11-15-2022 Hospital Discharge instructions Additional Instructions It is in your best interest to quit smoking. Because you smoke you may have a cough for an additional 2 to 4 weeks.[facility] Work Phone: 1(257) 942-768711-08-2022 History of Present illness Narrative* No Akers APRN.SALES MERCHANDISING SPECIALIST - 07/22/2022 2:03 PM EST Chief Complaint [...] agrees to the visit: Yes Patient Location: [facility] Sally Vargas is a 41 year old [...] Benign liver cyst 05/24/2010 CT scan at [facility] 11/2009 and 04/2010 showe 4 mm increase in size. No pain. No elevated LFTs on 03/11/2010. Calculus of kidney 05/17/[address] Nicolas: Hospitalized age 20, and again later -- no procedures so far ([facility] [place] [facility]) Cancer (HCC) COVID-19 virus infection 10/07/202109/2021 Diverticulosis [...] Yes Comment: Occasional Drug use: Never EXAM: [facility] 08/10/2006 Limited exam as visit was completed [...] as needed for worsening/no improvement. No Akers APRN.SALES MERCHANDISING SPECIALIST documented in this encounterUniversity Hospitals St. [facility] Center11-04-2022 History of Present illness Narrative* Nasrin Dunlap PA-C - 07/18/2022 6:32 PM EDT This note was created using Clueyter. Subjective Sally Vargas is a 41 year old female. HPI Patient presents with a chief complaint of cough and sinus congestion and pressure for 3 weeks. Shefeels like she is getting worse the past few days. No fever. No vomiting. She has tried egbh-zyd-whfvciv cough medicines that are not helping. Her [...] Benign liver cyst 05/24/2010 CT scan at [facility] 11/2009 and 04/2010 showe 4 mm increase in size. No pain. No elevated LFTs on 03/11/2010. Calculus of kidney 05/17/[address] Nicolas: Hospitalized age 20, and again later -- no procedures so far ([facility] [place] [facility]) Cancer (HCC) COVID-19 virus infection 10/07/202109/2021 Diverticulosis [...] TUBE ABDL/VAG APPR UNI/BI OOPHORECTOMY PARTIAL/TOTAL UNI/BI 2010 Oophorectomy right, still has left OOPHORECTOMY PARTIAL/TOTAL [...] worsen. Nasrin Dunlap PA-C documented in this encounterUniversity Hospitals St. [facility] Center10-17-2022 Miscellaneous Notes* Telephone Encounter - Whit Guardado [...] levels in 3 months. documented in this encounterUniversity Hospitals St. John Medical Center10-14-2022 Miscellaneous Notes* Telephone Encounter - Isabel Arias [...] process. Isabel Arias PA-C documented in this encounterUniversity Hospitals St. [facility] Center10-13-2022 History of Present illness Narrative* Isabel Arias PA-C - 06/26/2022 11:48 AM EDT Chief Complaint Patient presents with: Fatigue HPI Sally Vargas is a 41 year old [...] Benign liver cyst 05/24/2010 CT scan at [facility] 11/2009 and 04/2010 showe 4 mm increase in size. No pain. No elevated LFTs on 03/11/2010. Calculus of kidney 05/17/[address] Nicolas: Hospitalized age 20, and again later -- no procedures so far ([facility] [place] [facility]) Cancer (HCC) COVID-19 virus infection 10/07/202109/2021 Diverticulosis [...] NONFASTING Isabel Arias PA-C documented in this encounterUniversity Hospitals St. [facility] Center09-22-2022 Miscellaneous Notes* Telephone Encounter - Francisco Herrera [...] she has an appointment on the June 18. 2021 GO TO THE EMERGENCY ROOM OR CALL 911 IF: * You develop any new symptoms * Your condition worsens * You are concerned or anxious about your condition for any other reason. If you have any questions, you can call Nurse manager of corporate communications back. documented in this encounterUniversity Hospitals St. [facility] Center09-13-2022 History of Present illness Narrative* No Akers APRN.MANUELITO - 05/27/2022 1:05 PM EDT Chief Complaint [...] agrees to the visit: Yes Patient Location: [facility] Sally Vargas is a 41 year old [...] Benign liver cyst 05/24/2010 CT scan at [facility] 11/2009 and 04/2010 showe 4 mm increase in size. No pain. No elevated LFTs on 03/11/2010. Calculus of kidney 05/17/[address] Nicolas: Hospitalized age 20, and again later -- no procedures so far ([facility]) Cancer (HCC) COVID-19 virus infection 10/07/202109/2021 Diverticulosis [...] Yes Comment: Occasional Drug use: Never EXAM: [facility] 08/10/2006 Limited exam as visit was completed [...] APRN.CNP This note was partially generated using Invincea voice recognition system. Note was reviewed for accuracy. There may be minor misspellings or grammar miscues with Invincea voice recognition. documented in this encounterUniversity Hospitals St. [facility] Center08-30-2022 Miscellaneous Notes* Telephone Encounter - No Akers [...] coughing, short of breath with up walking SDUKNU-PXIC-YKXGT: worse HIGH RISK DISEASE: none VACCINE: yes OTHER SYMPTOMS: loss of taste and smell, weak diarrhea, neck pain, chills, fatigued, muscle pain and aches DENIES: vomiting : no, hysterectomy Pt scheduled for phone apt . Pt having problems with MyChart. Lexy Desouza LPN documented in this encounterUniversity Hospitals St. [facility] Center08-30-2022 History of Present illness Narrative* No Akers [...] agrees to the visit: Yes Patient Location: [facility] Sally Vargas is a 41 year old [...] Benign liver cyst 05/24/2010 CT scan at [facility] 11/2009 and 04/2010 showe 4 mm increase in size. No pain. No elevated LFTs on 03/11/2010. Calculus of kidney 05/17/[address] Nicolas: Hospitalized age 20, and again later -- no procedures so far ([facility]) Cancer (HCC) COVID-19 virus infection 10/07/202109/2021 Diverticulosis [...] minutes Nirmatrelvir/Ritonavir (Paxlovid) Eligibility and Patient Discussion [facility] Formulary Restriction Criteria: Adult outpatients 18 years [...] 13, 2022 12:53 PM documented in this encounterUniversity Hospitals St. [facility] Center08-30-2022 Instructions* Patient Instructions* No Akers APRN.CNP - 05/13/2022 12:51 PM EDT FACT SHEET FOR PATIENTS, PARENTS, AND CAREGIVERS EMERGENCY USE AUTHORIZATION (EUA) OF PAXLOVID FOR CORONAVIRUS DISEASE 2019 (COVID-19) You are being given this Fact Sheet because your healthcare provider believes it is necessary to provide you with PAXLOVID for the treatment of ftzr-ui-qweyarce coronavirus disease (COVID-19) caused by the SARS-CoV-2 [...] virus. COVID-19 illnesses have ranged from very irfu-nc-qobmoc, including illness resulting in . While information [...] is an investigational medicine used to treat kfos-ej-rlemvkoh COVID-19 in adults and children [12 years [...] of using PAXLOVID to treat people with jvna-hf-nlhszisf COVID-19. The FDA has authorized the emergency use of PAXLOVID for the treatment of rudx-zd-leeisqeg COVID-19in adults and children [12 years of [...] the medicines you take, including prescription and plku-znm-dakrkcw medicines, vitamins, and herbal supplements. Some medicines [...] (remdesivir) is FDA-approved for the treatment of lnzl-lp-ayxszgxt COVID-19 in certain adults and children. Talk with your doctor to see if Veklury is appropriate for you. Like PAXLOVID, FDA may also allow for the emergency use of other medicines to treat people with COVID-19. Go to https://www.fda.gov/pmeigjrwa-eagmdizamuxt-ietxcjababu/hag-gylnf-ixpjejiset-and- policy-framework/arkdkxpwu-mnc-bszhwxchsozdn for information on the emergency use of [...] if I am or ? There is certified performance technologist treating women or mothers with PAXLOVID. For [...] not go away. Report side effects to [employer] at www.Fuel3D.gov/medKISSmetrics or call 2-368-VST5205 or you can reportside effects to [employer] at the contact information provided below. Website Fax number Telephone number GET IT Mobile How should I store PAXLOVID? Store PAXLOVID [...] (EUA). The EUA is supported by a [place] of Health and Human Service (HHS) declaration that circumstances exist to justify the emergency use of drugs and biological productsduring the COVID-19 pandemic. PAXLOVID for the treatment of eepo-yz-vqifzhlo COVID-19 in adults and children [12 years [...] telephone number provided below. Website Telephone number wwwThird Age (6-632-I71-IWGO) You can also go to www.OneSource Water or call for more information. Pfizer Distributed by [employer] [address] [id number] Revised: 29 November 2021 documented in [address] encounterUniversity Hospitals St. [facility] Center08-29-2022 Instructions* Patient Instructions* Marcelino Bess APRN.CNP - [...] or other serious complaints. documented in this encounterUniversity Hospitals St. John Medical Center08-29-2022 History of Present illness Narrative* Madeline Luo [...] 12, 2022 5:32 PM documented in this encounterUniversity Hospitals St. John Medical Center08-29-2022 History of Present illness Narrative* Marcelino Bess APRN.CNP - 05/12/2022 5:20 PM EDT Subjective HPI [...] Benign liver cyst 05/24/2010 CT scan at [facility] 11/2009 and 04/2010 showe 4 mm increase in size. No pain. No elevated LFTs on 03/11/2010. Calculus of kidney 05/17/[address] Nicolas: Hospitalized age 20, and again later -- no procedures so far ([facility], [facility]) Cancer (HCC) COVID-19 virus infection 10/07/202109/2021 Diverticulosis [...] of care. This note was generated using Invincea software. It may contain errors in wording, punctuation, or spelling. Marcelino Bess APRN.SALES MERCHANDISING SPECIALIST documented in this encounterUniversity Hospitals St. [facility] Center08-24-2022 History of Present illness Narrative* Isabel Arias [...] might be hidden SUMMARY: -Pt discharged from [facility] on 05/02/22. -Follow up appointment on 05/16/22. -Medication review done No. -Admitted for: syncope CONCERNS: none NEW MEDICATIONS: Antivert 25 mg every 8 hours as needed MEDS HELD/DISCONTINUED: none BRIEF HOSPITAL COURSE: documented in this encounterUniversity Hospitals St. [facility] Center08-23-2022 Miscellaneous Notes* Telephone Encounter - Jigar Bernardo LPN - 05/06/2022 2:43 PM EDT Spoke with pt. She was discharged 05/02/22. Pt needed to reschedule appointment d/t transportation. TCM done and appointment rescheduled. Jigar Bernardo LPN * Telephone Encounter - Jigar Bernardo LPN - 05/05/2022 10:07 AM EDT Pt is scheduled to see Isabel for a hosp f/u from [facility]. Call to pt to see what day she was discharged. If still within 2 days please do a TCM encounter on pt. Jigar Bernardo LPN documented in this encounterUniversity Hospitals St. John Medical Center05-27-2022 Hospital Discharge instructions Patient Education 02/06/2022 22:07:16 [...] worse Numbness or weakness in a leg 4621-6517 [employer] [facility]. [address] [place] [address]. All rights reserved. This information is not intended as a substitute for professional medical care. Always follow yourhealthcare professional's instructions. Follow Up Care 02/06/2022 18:30:50 With:MARCELINO ALBERT MD Address: [address] [place] [id number] When:2-4 days [facility] 05-26-2022 Evaluation + Plan note Diagnostic Tests Pending * Urine Culture 02/06/22 [facility] 05-16-2022 Miscellaneous Notes* Telephone Encounter - Taylor Figueroa APRN.SALES MERCHANDISING SPECIALIST - 01/27/2022 3:55 PM EDT PDMP website checked and validated. All prescriptions have been APPROPRIATELY filled. No suspiciousactivity was identified. January 27, 2022 Taylor Figueroa APRN.SALES MERCHANDISING SPECIALIST documented in this encounterUniversity Hospitals St. John Medical Center04-12-2022 History of Present illness Narrative* Isabel Arias [...] plan. Isabel Arias PA-C documented in this encounterUniversity Hospitals St. [facility] Center01-24-2022 History of Past illness Narrative* Problem Noted Date Diagnosed Date Resolved Date COVID-19 virus infection 10/07/2021 Overview: 09/2021 Marijuana use 07/10/2020 03/30/2023 Overview: ER visit 07/06/2020 [place] Post-op pain 06/19/2020 02/16/2023 Encounter for screening for cardiovascular disorders 03/31/2016 02/16/2023 Routine gynecological examination 05/17/2008 02/16/2023 Overview: [facility] documented as of this encounter (statuses as of 03/30/2023) [facility]24[facility] History of Past illness Narrative* Problem Noted Date Diagnosed Date Resolved Date COVID-19 virus infection 10/07/2021 Overview: 09/2021 Marijuana use 07/10/2020 03/30/2023 Overview: ER visit 07/06/2020Jordan Post-op pain 06/19/2020 02/16/2023 Encounter for screening for cardiovascular disorders 03/31/2016 02/16/2023 Routine gynecological examination 05/17/2008 02/16/2023 Overview: [facility] documented as of this encounter (statuses as of 04/01/2023) [facility] History of Past illness Narrative* Problem Noted Date Diagnosed Date Resolved Date COVID-19 virus infection 10/07/2021 Overview: 09/2021 Marijuana use 07/10/2020 03/30/2023 Overview: ER visit 07/06/2020Jordan Post-op pain 06/19/2020 02/16/2023 Encounter for screening for cardiovascular disorders 03/31/2016 02/16/2023 Routine gynecological examination 05/17/2008 02/16/2023 Overview: [facility] documented as of this encounter (statuses as of 04/16/2023) [facility] History of Past illness Narrative* Problem Noted Date Diagnosed Date Resolved Date COVID-19 virus infection 10/07/2021 Overview: 09/2021 Marijuana use 07/10/2020 03/30/2023 Overview: ER visit 07/06/2020Jordan Post-op pain 06/19/2020 02/16/2023 Encounter for screening for cardiovascular disorders 03/31/2016 02/16/2023 Routine gynecological examination 05/17/2008 02/16/2023 Overview: [facility] documented as of this encounter (statuses as of 04/22/2023) [facility] History of Past illness Narrative* Problem Noted Date Diagnosed Date Resolved Date COVID-19 virus infection 10/07/2021 Overview: 09/2021 Marijuana use 07/10/2020 03/30/2023 Overview: ER visit 07/06/2020Jordan Post-op pain 06/19/2020 02/16/2023 Encounter for screening for cardiovascular disorders 03/31/2016 02/16/2023 Routine gynecological examination 05/17/2008 02/16/2023 Overview: [facility] documented [facility] of this encounter (statuses as of 05/15/2023) [facility]24[facility]22 History of Past illness Narrative* Problem Noted Date Diagnosed Date Resolved Date COVID-19 virus infection 10/07/2021 Overview: 09/2021 Marijuana use 07/10/2020 03/30/2023 Overview: ER visit 07/06/2020Jordan Post-op pain 06/19/2020 02/16/2023 Encounter for screening for cardiovascular disorders 03/31/2016 02/16/2023 Routine gynecological examination 05/17/2008 02/16/2023 Overview: [facility] as of this encounter (statuses as of 05/19/2023) [facility] History of Past illness Narrative* Problem Noted Date Diagnosed Date Resolved Date COVID-19 virus infection 10/07/2021 Overview: 09/2021 Marijuana use 07/10/2020 03/30/2023 Overview: ER visit 07/06/2020Jordan Post-op pain 06/19/2020 02/16/2023 Encounter for screening for cardiovascular disorders 03/31/2016 02/16/2023 Routine gynecological examination 05/17/2008 02/16/2023 Overview: [facility] as of this encounter (statuses as of 05/21/2023) [facility] History of Past illness Narrative* Problem Noted Date Diagnosed Date Resolved Date COVID-19 virus infection 10/07/2021 Overview: 09/2021 Marijuana use 07/10/2020 03/30/2023 Overview: ER visit 07/06/2020Jordan Post-op pain 06/19/2020 02/16/2023 Encounter for screening for cardiovascular disorders 03/31/2016 02/16/2023 Routine gynecological examination 05/17/2008 02/16/2023 Overview: [facility] as of this encounter (statuses as of 05/21/2023) [facility] History of Past illness Narrative* Problem Noted Date Diagnosed Date Resolved Date COVID-19 virus infection 10/07/2021 Overview: 09/2021 Marijuana use 07/10/2020 03/30/2023 Overview: ER visit 07/06/2020Jordan Post-op pain 06/19/2020 02/16/2023 Encounter for screening for cardiovascular disorders 03/31/2016 02/16/2023 Routine gynecological examination 05/17/2008 02/16/2023 Overview: [facility] as of this encounter (statuses as of 08/13/2023) [facility] History of Past illness Narrative* Problem Noted Date Diagnosed Date Resolved Date COVID-19 virus infection 10/07/2021 Overview: 09/2021 Marijuana use 07/10/2020 03/30/2023 Overview: ER visit 07/06/2020, [place] Post-op pain 06/19/2020 02/16/2023 Encounter for screening for cardiovascular disorders 03/31/2016 02/16/2023 Routine gynecological examination 05/17/2008 02/16/2023 Overview: [facility] as of this encounter (statuses as of 08/19/2023) [facility] History of Past illness Narrative* Problem Noted Date Diagnosed Date Resolved Date COVID-19 virus infection 10/07/2021 Overview: 09/2021 Marijuana use 07/10/2020 03/30/2023 Overview: ER visit 07/06/2020Jordan Post-op pain 06/19/2020 02/16/2023 Encounter for screening for cardiovascular disorders 03/31/2016 02/16/2023 Routine gynecological examination 05/17/2008 02/16/2023 Overview: [facility] as of this encounter (statuses as of 08/19/2023) [facility] History of Past illness Narrative* Problem Noted Date Diagnosed Date Resolved Date COVID-19 virus infection 10/07/2021 Overview: 09/2021 Marijuana use 07/10/2020 03/30/2023 Overview: ER visit 07/06/2020Jordan Post-op pain 06/19/2020 02/16/2023 Encounter for screening for cardiovascular disorders 03/31/2016 02/16/2023 Routine gynecological examination 05/17/2008 02/16/2023 Overview: [facility] as of this encounter (statuses as of 10/23/2023) [facility] History of Past illness Narrative* Problem Noted Date Diagnosed Date Resolved Date COVID-19 virus infection 10/07/2021 Overview: 09/2021 Marijuana use 07/10/2020 03/30/2023 Overview: ER visit 07/06/2020Jordan Post-op pain 06/19/2020 02/16/2023 Encounter for screening for cardiovascular disorders 03/31/2016 02/16/2023 Routine gynecological examination 05/17/2008 02/16/2023 Overview: [facility] as of this encounter (statuses as of 10/25/2023) [facility] History of Past illness Narrative* Problem Noted Date Diagnosed Date Resolved Date COVID-19 virus infection 10/07/2021 Overview: 09/2021 Marijuana use 07/10/2020 03/30/2023 Overview: ER visit 07/06/2020Jordan Post-op pain 06/19/2020 02/16/2023 Encounter for screening for cardiovascular disorders 03/31/2016 02/16/2023 Routine gynecological examination 05/17/2008 02/16/2023 Overview: [facility] Smoker 05/17/2008 12/01/2023 Overview: Started age 26, 1/2 a PPD Impaired fasting glucose 05/17/2008 Overview: Sugar 104 fasting, 8/08 documented as of this encounter (statuses as of 12/03/2023) [facility] History of Past illness Narrative* Problem Noted Date Diagnosed Date Resolved Date COVID-19 virus infection 10/07/2021 Overview: 09/2021 Marijuana use 07/10/2020 03/30/2023 Overview: ER visit 07/06/2020, [place] Post-op pain 06/19/2020 02/16/2023 Encounter for screening for cardiovascular disorders 03/31/2016 02/16/2023 Routine gynecological examination 05/17/2008 02/16/2023 Overview: [facility] Smoker 05/17/2008 12/01/2023 Overview: Started age 26, 1/2 a PPD Impaired fasting glucose 05/17/2008 Overview: Sugar 104 fasting, 8/08 documented as of this encounter (statuses as of 12/15/2023) [facility] History of Past illness Narrative* Problem Noted Date Diagnosed Date Resolved Date COVID-19 virus infection 10/07/2021 Overview: 09/2021 Marijuana use 07/10/2020 03/30/2023 Overview: ER visit 07/06/2020, [place] Post-op pain 06/19/2020 02/16/2023 Encounter for screening for cardiovascular disorders 03/31/2016 02/16/2023 Routine gynecological examination 05/17/2008 02/16/2023 Overview: [facility] Smoker 05/17/2008 12/01/2023 Overview: Started age 26, 1/2 a PPD Impaired fasting glucose 05/17/2008 Overview: Sugar 104 fasting, 8/08 documented as of this encounter (statuses as of 12/15/2023) [facility] History of Past illness Narrative* Problem Noted Date Diagnosed Date Resolved Date COVID-19 virus infection 10/07/2021 Overview: 09/2021 Marijuana use 07/10/2020 03/30/2023 Overview: ER visit 07/06/2020, [place] Post-op pain 06/19/2020 02/16/2023 Encounter for screening for cardiovascular disorders 03/31/2016 02/16/2023 Routine gynecological examination 05/17/2008 02/16/2023 Overview: Dr[facility] Smoker 05/17/2008 12/01/2023 Overview: Started age 26, 1/2 a PPD Impaired fasting glucose 05/17/2008 Overview: Sugar 104 fasting, 8/08 documented as of this encounter (statuses as of 12/17/2023) [facility] History of Past illness Narrative* Problem Noted Date Diagnosed Date Resolved Date COVID-19 virus infection 10/07/2021 Overview: 09/2021 Marijuana use 07/10/2020 03/30/2023 Overview: ER visit 07/06/2020, [place] Post-op pain 06/19/2020 02/16/2023 Encounter for screening for cardiovascular disorders 03/31/2016 02/16/2023 Routine gynecological examination 05/17/2008 02/16/2023 Overview: Dr[facility] Smoker 05/17/2008 12/01/2023 Overview: Started age 26, 1/2 a PPD Impaired fasting glucose 05/17/2008 Overview: Sugar 104 fasting, 8/08 documented as of this encounter (statuses as of 12/28/2023) [facility] History of Past illness Narrative* Problem Noted Date Diagnosed Date Resolved Date COVID-19 virus infection 10/07/2021 Overview: 09/2021 Marijuana use 07/10/2020 03/30/2023 Overview: ER visit 07/06/2020, [place] Post-op pain 06/19/2020 02/16/2023 Encounter for screening for cardiovascular disorders 03/31/2016 02/16/2023 Routine gynecological examination 05/17/2008 02/16/2023 Overview: Dr[facility] Benitez, [facility] Smoker 05/17/2008 12/01/2023 Overview: Started age 26, 1/2 a PPD Impaired fasting glucose 05/17/2008 Overview: Sugar 104 fasting, 8/08 documented as of this encounter (statuses as of 12/30/2023) [facility]12-[facility]-2021 Hospital Discharge instructions Patient Education 09/13/2021 14:47:01 [...] foods again, start with small amounts of zdzd-ml-vmdeyo, low- fat foods. These include apple sauce, [...] increase stomach acid. Don't use aspirin or ptsw-rji-etmemje pain and fever medicines, if possible. This includes nonsteroidal anti-inflammatory drugs (NSAIDs). Lose excess weight. Finish eating at least 2 hours before you go to bed or lie down. Raise the head of your bed. [id number] [employer]. [address] [place] [address]. All rights reserved. This information is not intended as a substitute for professional medical care. Always follow yourhealthcare professional's instructions. Follow Up Care 09/13/2021 13:08:49 With:MARCELINO ALBERT MD Address: [address] [place] [phone]- When:2-4 days [facility] 12-03-2021 Hospital Discharge instructions Patient Education [...] or higher after 2 days on antibiotics [phone] [employer]. [address] [place] [address]. All rights reserved. This information is not intended as a substitute for professional medical care. Always follow yourhealthcare professional's instructions. Follow Up Care 08/16/2021 15:45:40 With:MARCELINO ALBERT MD Address: [address] [place] [phone]- When:3-5 days [facility] 11-15-2021 History of Present illness Narrative* Madeline Luo RT(R) - 07/29/2021 9:20 AM EST Radiology [...] 29, 2021 9:19 AM documented in 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 Contact pt @[phone] [facility]03-08-2021 History of Present illness Narrative* Madeline Luo), Tech - 11/19/2020 3:40 PM EST Radiology [...] 19, 2020 3:56 PM documented in this encounter[facility] History of Present illness Narrative* Madeline Luo [...] 19, 2020 3:55 PM documented in this encounter[facility] History of Past illness Narrative* Problem Noted Date Resolved Date Post-op pain 06/19/2020 02/16/2023 Encounter for screening for cardiovascular disor ders 03/31/2016 02/16/2023 Routine gynecological examination 05/17/2008 02/16/2023 Overview: [facility] documented as of this encounter (statuses as of 02/16/2023) [facility] History of Past illness Narrative* Problem Noted Date Resolved Date Post-op pain 06/19/2020 02/16/2023 Encounter for screening for cardiovascular disor ders 03/31/2016 02/16/2023 Routine gynecological examination 05/17/2008 02/16/2023 Overview: [facility] Benitez, [facility] documented as of this encounter (statuses as of 02/17/2023) [facility] History of Past illness Narrative* Problem Noted Date Resolved Date Post-op pain 06/19/2020 02/16/2023 Encounter for screening for cardiovascular disor ders 03/31/2016 02/16/2023 Routine gynecological examination 05/17/2008 02/16/2023 Overview: [facility] documented as of this encounter (statuses as of 02/17/2023) [facility] History of Past illness Narrative* Problem Noted Date Resolved Date Post-op pain 06/19/2020 02/16/2023 Encounter for screening for cardiovascular disor ders 03/31/2016 02/16/2023 Routine gynecological examination 05/17/2008 02/16/2023 Overview: [facility] documented as of this encounter (statuses as of 03/10/2023) [facility] History of Past illness Narrative* Problem Noted Date Resolved Date Post-op pain 06/19/2020 02/16/2023 Encounter for screening for cardiovascular disor ders 03/31/2016 02/16/2023 Routine gynecological examination 05/17/2008 02/16/2023 Overview: [facility] documented as of this encounter (statuses as of 03/12/2023) [facility] History of Past illness Narrative* Problem Noted Date Resolved Date Post-op pain 06/19/2020 02/16/2023 Encounter for screening for cardiovascular disor ders 03/31/2016 02/16/2023 Routine gynecological examination 05/17/2008 02/16/2023 Overview: [facility] documented as of this encounter (statuses as of 03/13/2023) [facility] History of Past illness Narrative* Problem Noted Date Resolved Date Post-op pain 06/19/2020 02/16/2023 Encounter for screening for cardiovascular disor ders 03/31/2016 02/16/2023 Routine gynecological examination 05/17/2008 02/16/2023 Overview: [facility] documented as of this encounter (statuses as of 03/19/2023) [facility] History of Past illness Narrative* Problem Noted Date Diagnosed Date Resolved Date Post-op pain 06/19/2020 02/16/2023 Encounter for screening for cardiovascular disorders 03/31/2016 02/16/2023 Routine gynecological examination 05/17/2008 02/16/2023 Overview: [facility] documented as of this encounter (statuses as of 03/27/2023) [facility]01-26-2020 History of Present illness Narrative* Vanita Quinteros [...] be monitored and followed by the diet oral surgery technician.JIM Ratliff * Stacey Schaefer MD - 10/09/2019 6:31 AM EST COMPUTER PERIPHERAL EQUIPMENT OPERATOR/ONC Progress Note Date: 10/09/2019 Time: 6:31 AM Sally Sam 39 y.o. female POD #2 s/p Ex [...] 98% 95% Weight: Height: Intake/Output: Last Shift: @[id number]@ Current Shift: I/O this shift: In: 900 [...] PRN Allie Lebron MD 10 mg at 10/09/19 0026 ondansetron [...] 10/07/2019 POS NA Final Test Performed by [facility], [address] [place] [address] Antibody Screen 10/07/2019 NEG NA Final Test Performed by [facility], [address] [place] [address] WBC 10/08/2019 18.5* 3.6 - 10.7 10*3/uL [...] Note Date: 10/08/2019 Time: 12:22 AM Sally Gardinerderekshiva 39 y.o. female POD#1 s/p Ex Lap, [...] PRN Allie Lebron MD 10 mg at 10/07/19 194 HYDROmorphone (DILAUDID) injection 0.25 mg 0.25 mg Intravenous Q3H PRN Allie Lebron MD Or HYDROmorphone (DILAUDID) injection 0.5 mg 0.5 mg Intravenous Q3H PRN Allie Lebron MD 0.5 mg at 10/08/19 0003 ketorolac (TORADOL) injection 30 mg 30 mg Intravenous Q6H Allie Lebron MD 30 mg at 10/07/19 194 ondansetron (ZOFRAN) injection 4 mg 4 mg Intravenous Q8H PRN Allie Lebron MD lactated ringers infusion Intravenous Continuous Allie Lebron MD 75 mL/hr at 10/07/19 1319 melatonin tablet 1 mg 1 mg Oral Nightly PRN Allie Lebron MD 1 mg at 10/07/19 210 Diagnostics: No results found. Labs: Admission on 10/07/2019 Component Date Value Ref Range Status ABO Grouping 10/07/2019 O NA Final Rh Type 10/07/2019 POS NA Final Test Performed by [address] [address] Antibody Screen 10/07/2019 NEG NA Final Test Performed by [address] [address] Assessment/Plan: Sally Vargas 39 y.o. female POD#1 [...] RN - 10/07/2019 8:20 AM EST RN pagebenito Palacios regarding patient consent. Waiting for response. documented in this encounterSUMMA Work Phone: [phone] 874-331001-17-2020 History of Present illness Narrative* Sarah Fernández [...] products. Pt verbalizes understanding. documented in this [employer] Work Phone: [phone] 696-934112-23-2019 History of Present illness Narrative* Kilo Lucero RN - 09/05/2019 1:10 PM EST Tolerating diet. Good pain control. Instructed to call dr lorenzo office with temp>101 or unrelieved pain. refusing wheelchair for discharge. Ambulated with boyfriend for discharge home. Instructedno driving today or driving while on percocet * Kilo Lucero RN - 09/05/2019 1:[address] penaloza pagebenito due to no follow up appointment with urology. Stated to proceed with discharge and office will call with appointment * Penny Duenas - 09/05/2019 9:45 AM EST .Nutrition rescreen completed. Chart reviewed. 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 [...] limited to Failure of procedure, Bleeding, infection, ME, Stroke, PE, . Patient understands and agrees [...] Date 09/04/19 0000 - 09/04/19 2359 Shift 8312-5297 7826-4999 4612-3451 24 Hour Total INTAKE I.V. 1478 1478 [...] no passed stone Await urine cx Her Veterans Contact Representative/ pelvic findings can likely be worked up [...] 09/04/2019 0627 Gross per 24 hour Intake 1978 ml Output Net 1978 ml Physical Exam: General: Neck: Resp: Abdomen: [...] Group B streptococcus (A) 03/31/2017 0412 LABURIN 03/31/2017 0412 10,000-50,000 CFU/ml Susceptibility testing not routinely performed. Group B streptococcus is universally susceptible to beta-lactam antibiotics and vancomycin. If patient is beta-lactam allergic, please call [facility] Microbiology lab ([phone])OR [facility] Microbiology lab ([phone]) within 2 days to request susceptibility testing. [...] 09/04/2019 8:04 AM For questions/concerns please page industrial relations director Urology resident The admission history and physical [...] Per Galicia M.D. 09/04/2019 documented in this [facility] Work Phone: [phone]) 783-618312-23-2019 Hospital course Narrative* Abid, Blanche, MD - 09/05/2019 8:41 AM EST Hospitalist Discharge Summary Sally Vargas : 1980 Admit date: 09/03/2019 Discharge date: 09/05/19 Admitting Physician: Raghu Rivers MD Primary Care Physician: Marcelino Albert MD Discharge Diagnosis: Obstructing renal calculi. HLD depression Hospital Course: The patient is a 39 y.o. female who [facility] ''There are [...] Physician MD WEAVER MAX J Accession Number [id number] CPT4 Codes 39392 () Reason For Exam nephrolithiasis Report ABDOMEN, [...] Discharge Medications: Sally Vargas Home Medication Instructions ANITA:[id number] Printed on:09/05/19 0824 Medication Information ALPRAZolam (XANAX) 0.5 MG tablet [...] encounterSUMMA Work Phone: Consult note Author Blue Rose [facility] December 04, 2023 4:55pm Note Date/Time December 04, 2023 4:5 5pm [facility] Medical Records Department [address] [place] [address] Consultation - GI 12/04/23 1651 MR#: [id number] Acct: [id number] Name: SALLY VARGAS Rep #:[id number] : 1980 43 From: Blue Rose DO PCP: Dr. Silverio Haley MD Status:AD M IN Location: [facility] [id number] HPI Consult Data Date of Consult: 12/04/23 [...] pancreatitis. She went to the ED at [facility] about 2 weeks ago for this. Her [...] nausea and vomiting. Patient was hospitalized at [facility] in 2019 for significant abdominal pain. She [...] breath. No other acute concerns this time. [facility] Medical History (Updated 12/03/23 @ 17:43 [...] (MDRD) Non-Af 63, BUN/Creatinine Ratio 7.9 L, Hyolcue51, Calcium 8.8, C-React Prot Ext Range 6.61 H Assessment & Plan Assessment/Plan (1) Abdominal pain: (2) Intractable nausea and vomiting: PLAN: Plan Patient is a 43-year-old female who presented to [facility] ED on 12/03/2023 with abdominal pain [...] p.o. intake. Charges/Coding Visit Charges Inpatient E&M: 90153 Init Hosp L3 12/04/23 1655 <Electronically signed by Blue Rose DO> Cosigner Signature (if applicable): CC: Dr. Jonh Geiger DO; Dr. Silverio Haley MD; Blue Rose DO~ Signed [facility] Work Phone: Discharge summary Author Eduar Messinatyler hospital[facility] December 04, 2023 4:51pm Note Date/Time December 04, 2023 4:4 6pm [facility] Medical Records Department [address] [place] [address] Instructions for Home/Discharge Instructions 12/04/23 1645 MR#: [id number] Acct: [id number] Name: SALLY VARGAS Rep #:[id number] : [...] if applicable. Discharge Plan Admission Admit Date/Time: 12/03/23 16:46 Primary Reason for Your Visit: chronic abdominal pain Attending Provider: Eduar Gurrola Primary Care Provider: Silverio Haley Consulting Providers: Helena Rose Alexander Discharge Orders/Prescriptions Prescriptions: New oxycodone 5 mg [...] can be placed): Home, Self Care 12/04/23 9639<Electronically signed by Eduar Gurrola DO>Eduar Gurrola DO CC: Dr. Jonh Geiger, ; Dr. Silverio Haley MD; Blue Rose, DO ~ Signed [facility] Work Phone: Discharge summary Author Leonardo Farr [facility] Note Date/Time May 15, 2025 12:10pm [facility] Medical Records Department [address] [place] [address] Emergency Department Summary 05/15/25 MR#: [id number] Acct: [id number] Name: SALLY VARGAS Rep #:[id number] : 1980 44 From: Leonardo rosado DO PCP: Dr. Silverio Haley MD Status:RE G ER Location: ED HPI History of Present Illness Chief Complaint: Cold Sx Narrative Narrative: Chief complaint and HPI: 44 -year-old female with anxiety, HLD, asthma presents for evaluation of cold-like symptoms. Patient states for the past week she has had nasal congestion, rhinorrhea, sinus pressure, sore throat. Endorses mild cough. Has been using her inhalers. Denies any chest pain, shortness of breath,abdominal pain, nausea, vomiting. Boyfriend has similar symptoms. Review of systems: See HPI Medications: As listed on the chart Allergies: As listed on the chart PFSH: Per chart Vital signs: As listed on the chart. Reviewed. Physical exam: Gen: A&O x3, NAD Head: Normocephalic, atraumatic Eyes: No sclera icterus, conjunctiva clear, PERRL, EOMI ENT: TMs clear BL, moist mucous membranes, posterior oropharynx unremarkable, uvula midline, tonsils not enlarged, no tonsillar exudates, + sinus tenderness, + nasal congestion Neck: Trachea midline, No JVD, Full ROM, No meningismus, no lymphadenopathy CV: RRR, no murmurs, no peripheral edema Resp: Lungs CTA BL, no w/r/c GI: Abd soft, non-distended, non-tender, no r/r/g Musc: Full ROM, no deformity Skin: Warm, dry, no rash Neuro: Alert, oriented, grossly intact, sensation intact PFSH PFSH Medical History Cancer Depression Rheumatoid arthritis Arthritis [...] PO TID PRN NEUROPATHY 10/03/20 12/02/23 History hyoscyamine sulfate 0.125 mg 0.125 mg [...] Q8H PRN PRN 4 Unknown History nausea/vomiting cyclobenzaprine 10 mg tablet 10 mg PO TID PRN Muscle S pasm #15 08/21/24 Unknown Rx TABLETS ondansetron 4 mg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 Referral ID Status Reason Start Date Expiration Date Visits Requested Visits Authorized [id number] New Request Auto-Generat ed Referral 07/20/2024 08/19/2025 1 1 * Outpatient Procedure (Routine) - New Request Specialty Diagnoses / Procedures Referred By Contac t Referred To [facility] Diagnoses Subacute cough Acute asthmatic bronchitis Procedures SPIROMETRY - BASELINE AND POST DILATOR BRNCDILAT RSPSE SPMTRY PRE&POST-BRNCDILAT ADMN Silverio Haley MD [address] [place] [address] [address] Referral ID Status Reason Start Date Expiration Date Visits Requested Visits Authorized [id number] New Request Auto-Generat ed Referral 07/20/2024 08/19/2025 1 1 [facility] for referral (narrative)* Outpatient Procedure (Routine) - New Request Specialty Diagnoses / Procedures Referred By Alma hollis Referred To [facility] Diagnoses Pericardial effusion LARSON (dyspnea on exertion) Procedures ECHO ECHO TTHRC R-T 2D W/WOM-MODE COMPL SPEC&COLR D Silverio Haley MD [address] [place] [address] [facility] [place] [address] [place] [address] Referral ID Status Reason Start Date Expiration Date Visits Requested Visits Authorized [id number] New Request Auto-Generat ed Referral 10/03/2024 10/03/2025 1 1 [facility] for referral (narrative)No reason for referral information [facility] Work Phone: Reason for visit Narrative* Diagnostic Procedure Only (Urgent) - Closed Specialty Diagnoses / Procedures Referred By Alma hollis Referred To Contact XR IMAGING Diagnoses Hand injury, right, initial encounter Procedures XR HAND GENERAL 3V PA/LAT/OBL RIGHT RADEX HAND MINIMUM 3 VIEWS Milly Henderson, ASHLYN.SALES MERCHANDISING SPECIALIST [address] [place] [address] [place] [address] Referral ID Status Reason Start Date Expiration Date V isits Requested Visits Authorized [id number] Closed Auto-Generate d Referral 08/18/2023 09/16/2024 [address] 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 Advance Directives and Living Will Power of Case Liner Latest Code Status on File Code Status [...] Will No October 04 8:34pm Power of Case Liner No October 04, 2021 8:34pm Documents on File Type Date Recorded 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 Advance Directive(s) 06/19/2021 7:41 AM Advance Directive(s) 06/19/2020 3:44 PM Advance Directive(s) 06/08/2020 9:30 AM Advance Directive(s) 05/25/2020 7:47 AM Advance Directive(s) 05/08/2020 12:13 PM Advance Directive Response Recorded Date/ Time Living Will No April 10, 2022 11:00am Power of Case Liner No April 10 11:00am Documents on File Type Date Recorded 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 Advance Directive(s) 06/19/2021 7:41 AM Advance Directive(s) 06/19/2020 3:44 PM Advance Directive(s) 06/08/2020 9:30 AM Advance Directive(s) 05/25/2020 7:47 AM Advance Directive(s) 05/08/2020 12:13 PM Advance Directive Response Recorded Date/ Time Living Will No July 29, 2 022 1:28pm Power of Case Liner No July 29, 2022 1:28pm Advance Directive Response Recorded Date/ Time Living Will No September 07, 2 022 1:56am Power of Case Liner No September 07, 2022 1:56am Advance Directive Response Recorded Date/ Time Living Will No November 18, 2022 10:05am Power of Case Liner No November 18 10:05am Advance Directive Response Recorded Date/ Time Living Will No February 09, 2023 7 :32pm Power of Case Liner No February 09, 2023 7:32pm Advance Directive Response Recorded Date/ Time Living Will No February 10, 2023 2 :44pm Power of Case Liner No February 10, 2023 2:44pm Advance Directive Response Recorded Date/ Time Living Will No April 01, 2023 5:13pm Power of Case Liner No April 01 5:13pm Advance Directive Response Recorded Date/ Time Living Will No May 04 5:22pm Power of Case Liner No May 04 5:22pm Advance Directive Response Recorded Date/ Time Living Will No June 06, 2023 4:49pm Power of Case Liner No May 4:49pm Advance Directive Response Recorded Date/ Time Living Will No June 11, 2023 4:44pm Power of Case Liner No May 4:44pm Advance Directive Response Recorded Date/ Time Living Will No July 22 3:43pm Power of Case Liner No July 22, 2023 3:43pm Advance Directive Response Recorded Date/ Time Living Will No September 20 7:25am Power of Case Liner No September 20 024 7:25am Advance Directive Response Recorded Date/ Time Living Will No October 25 024 4:51pm Power of Case Liner No October 25, 2023 4:51pm Advance Directive Response Recorded Date/ Time Living Will No October 24, 2 024 8:47pm Power of Case Liner No October 24, 2023 8:47pm Advance Directive Response Recorded Date/ Time Living Will No December 03, 2023 2:28pm Power of Case Liner No December 02 2:28pm Advance Directive Response Recorded Date/ Time Living Will No December 03, 2023 5:37pm Power of Case Liner No December 02 5:37pm Advance Directive Response Recorded Date/ Time Living Will No December 09, 2023 5:50pm Power of Case Liner No December 08 5:50pm Advance Directive Response Recorded Date/ Time Living Will No December 26, 2023 3:57pm Power of Case Liner No December 25 3:57pm Advance Directive Response Recorded Date/ Time Living Will No January 16, 2024 6: 26pm Power of Case Liner No January 16, 2024 6:26pm Advance Directive Response Recorded Date/ Time Living Will No August 21 10:13am Power of Case Liner No August 21, 2024 10:13am Living Will No October 04 5:41pm Power of Case Liner No October 04, 2024 5:41pm Living Will No November 17, 2024 7:08pm Power of Case Liner No November 17 7:08pm Advance Directive Response Recorded Date/ Time Living Will No August 21 11:13am Power of Case Liner No August 21, 2024 11:13am Living Will No October 04 6:41pm Power of Case Liner No October 04, 2024 6:41pm Living Will No November 17, 2024 8:08pm Power of Case Liner No November 17 8:08pm Advance Directive Response Recorded Date/ Time Do you have a Healthcare Power of Case Liner? No May 15, 2025 11:06am Hospital Course Note Veterans Contact Representative Discharge Summary ? Melyssa ent Name: Sally [...] Referred By Alma hollis Referred To Contact Rheumatology Diagnoses Bilateral chronic knee pain Arthralgia, unspecified joint Tamiko, Sarah Marina MD [address] [place] [id number] Ashley Golden MD [address] [place] [address] Referral ID Status Reason Start Date Expiration Date V isits Requested Visits Authorized [id number] Closed Specialty Services Required/Melyssa ent's Best Interest 06/26/2021 06/26/2022 1 1 Specialty Diagnoses / Procedures Referred By Contac t Referred To Contact Diagnoses Acute cough Upper respiratory infection with cough and congestion No Akers APRN.SALES MERCHANDISING SPECIALIST [address] [place] [address] Referral ID Status Reason Start Date Expiration Date Visits Re quested Visits Authorized [id number] Closed 1 1 Specialty Diagnoses / Procedures Referred By Contac t Referred To Contact [facility] Diagnoses Vertigo Procedures CONSULT TO PHYSICAL THERAPY PHYSICAL THERAPY EVALUATION HIGH COMPLEX 45 MINS Merced Hutchinson APRN.SALES MERCHANDISING SPECIALIST [address] [place] [address] [facility] [place] [address] [place] [address] Referral ID Status Reason Start Date Expiration Date Visits Requested Visits Authorized [id number] Pending Review Auto-Generat ed Referral 02/16/2023 02/16/2024 1 1 Specialty Diagnoses / Procedures Referred By Contac t Referred To Contact General Surgery Diagnoses Acute pancreatitis without infection or necrosis, unspecified pancreatitis type Intractable nausea and vomiting Right sided abdominal pain Chronic pancreatitis, unspecified pancreatitis type (HCC) Procedures CONSULT TO GENERAL SURGERY OFFICE/OUTPATIENT [facility] 60-74 MINUTES Merced Hutchinson APRN.SALES MERCHANDISING SPECIALIST [address] [place] [address] Referral ID Status Reason Start Date Expiration Date Visits Requested Visits Authorized [id number] Authorized PCP Requested Referral 03/30/2023 03/29/2024 1 1 Specialty Diagnoses / Procedures Referred By Contac t Referred To Contact Gastroenterology Diagnoses Acute pancreatitis without infection or necrosis, unspecified pancreatitis type Intractable nausea and vomiting Procedures CONSULT TO GASTROENTEROLOGY OFFICE/OUTPATIENT [facility] 60-74 MINUTES Merced Hutchinson APRN.SALES MERCHANDISING SPECIALIST [address] [place] [address] Referral ID Status Reason Start Date Expiration Date Visits Requested Visits Authorized [id number] Authorized PCP Requested Referral 03/30/2023 03/29/2024 1 1 Specialty Diagnoses / Procedures Referred By Contac t Referred To Contact Urology Diagnoses Calculus of kidney Procedures CONSULT TO UROLOGY OFFICE/OUTPATIENT [facility] 60-74 MINUTES Merced Hutchinson APRN.SALES MERCHANDISING SPECIALIST [address] [place] [address] Referral ID Status Reason Start Date Expiration Date Visits Requested Visits Authorized [id number] Authorized PCP Requested Referral 04/22/2023 04/21/2024 1 1 Specialty Diagnoses / Procedures Referred By Contac t Referred To Contact Urology Diagnoses RLQ abdominal pain History of kidney stones Procedures CONSULT TO UROLOGY OFFICE/OUTPATIENT [facility] 60 MINUTES Silverio Haley MD [address] [place] [address] Referral ID Status Reason Start Date Expiration Date Visits Requested Visits Authorized [id number] Authorized PCP Requested Referral 06/10/2024 06/10/2025 1 1 Specialty Diagnoses / Procedures Referred By Contac t Referred To Contact XR IMAGING Diagnoses Acute left ankle pain Localized swelling, mass and lump, left lower limb Procedures XR ANKLE GENERAL 3V AP/LAT/OBL LEFT RADEX ANKLE COMPLETE MINIMUM 3 VIEWS Silverio Haley MD [address] [place], [place] [id number] [place] [address] Referral ID Status Reason Start Date Expiration Date Visits Requested Visits Authorized [id number] New Request Auto-Generat ed Referral 06/10/2024 07/10/2025 1 1 Specialty Diagnoses / Procedures Referred By Contac t Referred To Contact Diagnoses Acute asthmatic bronchitis Silverio Haley MD [address] [place], [place] [address] Referral ID Status Reason Start Date Expiration Date V isits Requested Visits Authorized [id number] Pending Review 1 1 Referral ID Status Reason Start Date Expiration Date V isits Requested Visits Authorized [id number] Pending Review 1 1 Chief Complaint and [...] LOWER EXT November 22, 2024 10: 44am Chief Complaint Admit Date cold sx May 15, 2025 11:05am Additional Source Comments INFORMATION SOURCE (unrecogn ized section and content) DATE CREATED AUTHOR 10/21/2019 [facility] DATE CREATED AUTHOR AUTHOR'S ORGANIZ ATION 06/13/2021 [facility] DATE CREATED AUTHOR AUTHOR'S ORGANIZ ATION 06/19/2021 [facility] DATE CREATED AUTHOR AUTHOR'S ORGANIZ ATION 06/26/2021 [facility] DATE CREATED AUTHOR AUTHOR'S ORGANIZ ATION 10/24/2021 [facility] DATE CREATED AUTHOR AUTHOR'S ORGANIZ ATION 02/23/2023 [facility] DATE CREATED AUTHOR AUTHOR'S ORGANIZ ATION 02/08/2024 [facility] ([place]) DATE CREATED AUTHOR AUTHOR'S ORGANIZ ATION 02/15/2025 [facility] DATE CREATED AUTHOR AUTHOR'S ORGANIZ ATION 03/03/2025 [facility] DATE CREATED AUTHOR AUTHOR'S ORGANIZ ATION 03/03/2025 [facility] DATE CREATED AUTHOR AUTHOR'S ORGANIZ ATION 05/14/2025 [facility] DATE CREATED AUTHOR AUTHOR'S ORGANIZ ATION 05/21/2025 [facility] Care Teams (unrecognized sec tion and content) Tubing Oiler Relationship Specialty Start Date End Date No, Physician [facility] PCP - General 04/30/21 Tubing Oiler Relationship Specialty Start Date End Date Marcelino Albert MD [address] [place] [address] PCP - General Family Practice 04/05/21 Tubing Oiler Relationship Specialty Start Date End Date Marcelino Albert MD [address] [place] [address] PCP - General Family Practice 04/05/21 Tubing Oiler Relationship Specialty Start Date End Date Marcelino Albert MD [address] [place] [address] PCP - General Family Practice 04/05/21 Tubing Oiler Relationship Specialty Start Date End Date Marcelino Albert MD [address] [place] [address] PCP - General Family Practice 04/05/21 Tubing Oiler Relationship Specialty Start Date End Date Marcelino Albert MD [address] [facility] [place] [address] PCP - General Family Practice 04/05/21 Tubing Oiler Relationship Specialty Start Date End Date Marcelino Albert MD [facility] [place] [address] PCP - General Family Practice 04/05/21 Tubing Oiler Relationship Specialty Start Date End Date Marcelino Albert MD [address] [place] [address], [place] [address] PCP - General Family Practice 04/05/21 Tubing Oiler Relationship Specialty Start Date End Date Marcelino Albert MD [address] [place] [address], [place] [address] PCP - General Family Medicine 04/05/21 Tubing Oiler Relationship Specialty Start Date End Date Marcelino Albert MD [address] [place] [address], [place] [address] PCP - General Family Medicine 04/05/21 Tubing Oiler Relationship Specialty Start Date End Date Marcelino Albert MD [address] [place] [address], [place] [address] PCP - General Family Medicine 04/05/21 Tubing Oiler Relationship Specialty Start Date End Date Marcelino Albert MD [address] [place] [address], [place] [address] PCP - General Family Medicine 04/05/21 Tubing Oiler Relationship Specialty Start Date End Date Marcelino Albert MD [address] [place] [address], [place] [address] PCP - General Family Medicine 04/05/21 Tubing Oiler Relationship Specialty Start Date End Date Marcelino Albert MD [address] [place] [address], [place] [address] PCP - General Family Medicine 04/05/21 Tubing Oiler Relationship Specialty Start Date End Date Marcelino Albert MD [address] [place] [address] PCP - General Family Medicine 04/05/21 Tubing Oiler Relationship Specialty Start Date End Date Marcelino Albert MD [address] [place] [address] PCP - General Family Medicine 04/05/21 Tubing Oiler Relationship Specialty Start Date End Date Marcelino Albert MD [address] [place] [address] PCP - General Family Medicine 04/05/21 Tubing Oiler Relationship Specialty Start Date End Date Marcelino Albert MD [address] [place] [address] PCP - General Family Medicine 04/05/21 08/13/22 [...] Active Stefano Hood MD Emergency Provider Active Tubing Oiler Relationship Specialty Start Date End Date Silverio Haley MD [address] [place] [address] PCP - General Internal Medicine 01/07/23 Tubing Oiler Relationship Specialty Start Date End Date Silverio Haley MD [address] [place] [address] PCP - General Internal Medicine 01/07/23 Tubing Oiler Relationship Specialty Start Date End Date Silverio Haley MD [address] [facility] [place] [address] PCP - General Internal Medicine 01/07/23 Tubing Oiler Relationship Specialty Start Date End Date Silverio Haley MD [address] [facility] [place] [address] PCP - General Internal Medicine 01/07/23 Tubing Oiler Relationship Specialty Start Date End Date Silverio Haley MD [address] [facility] [place] [address] PCP - General Internal Medicine 01/07/23 Team Status: Inactive Member Role Status Dates CHAZ Hamilton Primary Care Provider Active Stefano Hood MD Attending Provider, Emergency Provid er Active Team Status: Inactive Member Role Status Dates CHAZ Hamilton Primary Care Provider Active Dr. Ran Torres , DO Referring Provider, Emergency P [facility] Active Team Status: Inactive Member Role Status Dates CHAZ Hamilton Primary Care Provider Active Dr. Marcelino Rosa , DO Emergency Provider Active Tubing Oiler Relationship Specialty Start Date End Date Silverio Haley MD [address] [place] [address] PCP - General Internal Medicine 01/07/23 Tubing Oiler Relationship Specialty Start Date End Date Silverio Haley MD [address] [place] [address] PCP - General Internal Medicine 01/07/23 Tubing Oiler Relationship Specialty Start Date End Date Silverio Haley MD [address] [place] [address] PCP - General Internal Medicine 01/07/23 Tubing Oiler Relationship Specialty Start Date End Date Silverio Haley MD [address] [place] [address] PCP - General Internal Medicine 01/07/23 Tubing Oiler Relationship Specialty Start Date End Date Silverio Haley MD [address] [place] [address] PCP - General Internal Medicine 01/07/23 Tubing Oiler Relationship Specialty Start Date End Date Silverio Haley MD [address] [place], [place] [address] PCP - General Internal Medicine 01/07/23 Tubing Oiler Relationship Specialty Start Date End Date Silverio Haley MD [address] [place], [place] [address] PCP - General Internal Medicine 01/07/23 Tubing Oiler Relationship Specialty Start Date End Date Marcelino Albert MD [address] [facility] [address] [facility] [address] [place] [address] PCP - General 10/10/16 Tubing Oiler Relationship Specialty Start Date End Date Silverio Haley MD [address] [place], [place] [address] PCP - General Internal Medicine 01/07/23 Team [...] Dr. Eleanor Borjas MD Emergency Provider Active Tubing Oiler Relationship Specialty Start Date End Date Silverio Haley MD [address] [place] [address] PCP - General Internal Medicine 01/07/23 Tubing Oiler Relationship Specialty Start Date End Date Silverio Haley MD [address] [place] [address] PCP - General Internal Medicine 01/07/23 Team Status: Inactive Member Role Status Dates Dr. Silverio Haley MD Primary Care Provider Active Dr. Eleanor Borjas MD Attending Provider, Emergency Provider Active Team Status: Inactive Member Role Status Dates Dr. Silverio Haley MD Primary Care Provider Active Dr. Vikram Dominguez DO Emergency Provider Active Tubing Oiler Relationship Specialty Start Date End Date Marcelino Albert MD 1 [facility] [address] [place] [address] PCP - General 10/10/16 Tubing Oiler Relationship Specialty Start Date End Date Silverio Haley MD [address] [place] [address] PCP - General Internal Medicine 01/07/23 Tubing Oiler Relationship Specialty Start Date End Date Silverio Haley MD [address] [place] [address] PCP - General Internal Medicine 01/07/23 Tubing Oiler Relationship Specialty Start Date End Date Silverio Haley MD [address] [place] [address] PCP - General Internal Medicine 01/07/23 Tubing Oiler Relationship Specialty Start Date End Date Silverio Haley MD [address] [place] [address] PCP - General Internal Medicine 01/07/23 Team Status: Inactive Member Role Status Dates Dr. Silverio Haley MD Primary Care Provider Active Dr. Vikram Dominguez DO Attending Provider, Emergency Provider Active Team Status: Inactive Member Role Status Dates Dr. Silverio Haley MD Primary Care Provider Active Dr. Grzegorz Roper MD Emergency Provider Active Tubing Oiler Relationship Specialty Start Date End Date Marcelino Albert MD [address] [facility] [address] [place] [address] PCP - General 10/10/16 Team Status: Inactive Member Role Status Dates Dr. Silverio Haley MD Primary Care Provider Active Dr. Grzegorz Roper MD Attending Provider, Emergency Pro vider Active Team Status: Inactive Member Role Status Dates Dr. Silverio Haley MD Primary Care Provider Active Dr. Vasiliy Mcdermott DO Emergency Provider Active Tubing Oiler Relationship Specialty Start Date End Date Silverio Haley MD [address] [place] [address] PCP - General Internal Medicine 01/07/23 Tubing Oiler Relationship Specialty Start Date End Date Silverio Haley MD [address] [place] [address] PCP - General Internal Medicine 01/07/23 Tubing Oiler Relationship Specialty Start Date End Date Silverio Haley MD [address] [place] [address] PCP - General Internal Medicine 01/07/23 Team Status: Inactive Member Role Status Dates Dr. Silverio Haley MD Primary Care Provider Active Dr. Vasiliy Mcdermott DO Attending Provider, Emergency Pro vider Active Team Status: Inactive Member Role Status Dates Dr. Silverio Haley MD Primary Care Provider Active Dr. Ran Torres DO Emergency Provider Active Tubing Oiler Relationship Specialty Start Date End Date Silverio Haley MD [address] [place] [address] PCP - General Internal Medicine 01/07/23 Team [...] Dr. Jonh Geiger , DO Admit Provider, Attending Provider [...] DO Attending Provider, Other Pro vider Active Tubing Oiler Relationship Specialty Start Date End Date Silverio Haley MD [address] [place] [address] PCP - General Internal Medicine 01/07/23 Tubing Oiler Relationship Specialty Start Date End Date Silverio Haley MD [address] [place] [address] PCP - General Internal Medicine 01/07/23 Team Status: Inactive Member Role Status Dates Dr. Silverio Haley MD Primary Care Provider Active Merced Beasleyr INORGANIC CHEMIST, INORGANIC CHEMIST-C Attending Provider, Referring Pr ovider Active Team Status: Inactive Member Role Status Dates Dr. Silverio Haley MD Primary Care Provider Active Ed Physician Provider Emergency Provider Active Team Status: Inactive Member Role Status Dates Dr. Silverio Haley MD Primary Care Provider Active Stefano Hood MD Emergency Provider Active Tubing Oiler Relationship Specialty Start Date End Date Silverio Haley MD [address] [place] [address] PCP - General Internal Medicine 01/07/23 Tubing Oiler Relationship Specialty Start Date End Date Silverio Haley MD [address] [place] [address] PCP - General Internal Medicine 01/07/23 Team [...] Dr. Mor Painter MD Emergency Provider Active Tubing Oiler Relationship Specialty Start Date End Date Silverio Haley MD [address] [place] [address] PCP - General Internal Medicine 01/07/23 Team Status: Inactive Member Role Status Dates Dr. Silverio Haley MD Primary Care Provider Active Dr. Blue Rose , DO Attending Provider, Referring Provider Active Tubing Oiler Relationship Specialty Start Date End Date Silverio Haley MD [address] [facility] [place] [address] PCP - General Internal Medicine 01/07/23 Tubing Oiler Relationship Specialty Start Date End Date Silverio Haley MD [address] [facility] [place] [address] PCP - General Internal Medicine 01/07/23 Tubing Oiler Relationship Specialty Start Date End Date Silverio Haley MD [address] [facility] [place] [address] PCP - General Internal Medicine 01/07/23 Tubing Oiler Relationship Specialty Start Date End Date Silverio Haley MD [address] [facility] [place] [address] PCP - General Internal Medicine 01/07/23 Tubing Oiler Relationship Specialty Start Date End Date Silverio Haley MD [address] [facility] [place] [address] PCP - General Internal Medicine 01/07/23 Tubing Oiler Relationship Specialty Start Date End Date Silverio Haley MD [address] [facility] [place] [address] PCP - General Internal Medicine 01/07/23 Tubing Oiler Relationship Specialty Start Date End Date Silverio Haley MD [address] [facility] [place] [address] PCP - General Internal Medicine 01/07/23 Tubing Oiler Relationship Specialty Start Date End Date Silverio Haley MD [address] [facility] [place] [address] PCP - General Internal Medicine 01/07/23 Tubing Oiler Relationship Specialty Start Date End Date Marcelino Albert MD [address] [place] [address] PCP - General Family Medicine 04/05/21 08/13/22 Tubing Oiler Relationship Specialty Start Date End Date Silverio Haley MD [address] [place] [address] PCP - General Internal Medicine 01/07/23 Tubing Oiler Relationship Specialty Start Date End Date Marcelino Albert MD [address] [facility] [place] [address] PCP - General Family Medicine 04/05/21 08/13/22 Tubing Oiler Relationship Specialty Start Date End Date Silverio Haley MD [address] [facility] [place] [address] PCP - General Internal Medicine 01/07/23 Tubing Oiler Relationship Specialty Start Date End Date Silverio Haley MD [address] [facility] [place] [address] PCP - General Internal Medicine 01/07/23 Tubing Oiler Relationship Specialty Start Date End Date Silverio Haley MD [address] [facility] [place] [address] PCP - General Internal Medicine 01/07/23 Tubing Oiler Relationship Specialty Start Date End Date Silverio Haley MD [address] [facility] [place] [address] PCP - General Internal Medicine 01/07/23 Tubing Oiler Relationship Specialty Start Date End Date Marcelino Albert MD [address] [facility] [place] [address] PCP - General Family Medicine 03/31/16 03/31/21 Marcelino Albert MD [address] [facility] [place] [address] Referring Family Medicine 05/06/17 03/31/21 Tubing Oiler Relationship Specialty Start Date End Date Marcelino Albert MD [address] [facility] [place] [address] PCP - General Family Medicine 03/31/16 03/31/21 Marcelino Albert MD [address] [facility] [place] [address] Referring Family Medicine 05/06/17 03/31/21 Tubing Oiler Relationship Specialty Start Date End Date Silverio Haley MD [address] [facility] [place] [address] PCP - General Internal Medicine 01/07/23 Tubing Oiler Relationship Specialty Start Date End Date Silverio Haley MD [address] [facility] [place] [address] PCP - General Internal Medicine 01/07/23 Tubing Oiler Relationship Specialty Start Date End Date Silverio Haley MD [address] [facility] [place] [address] PCP - General Internal Medicine 01/07/23 Tubing Oiler Relationship Specialty Start Date End Date Silverio Haley MD [address] [facility] [place] [address] PCP - General Internal Medicine 01/07/23 Tubing Oiler Relationship Specialty Start Date End Date Silverio Haley MD [address] [place] [address] PCP - General Internal Medicine 01/07/23 Gretchen Newton, YARD ENGINEER.PROVIDER ENGAGEMENT EXECUTIVE [address] [place] [address] Capsule Machine Operator Internal Medicine 08/22/24 Merced Hutchinson YARD ENGINEER.SALES MERCHANDISING SPECIALIST [address] [place] [address] Capsule Machine Operator Internal Medicine 08/22/24 Tubing Oiler Relationship Specialty Start Date End Date Silverio Haley MD [address] [place] [address] PCP - General Internal Medicine 01/07/23 Gretchen Newton, YARD ENGINEER.PROVIDER ENGAGEMENT EXECUTIVE [address] [place] [address] Capsule Machine Operator Internal Medicine 08/22/24 Mercde Hutchinson YARD ENGINEER.SALES MERCHANDISING SPECIALIST [address] [place] [address] Capsule Machine Operator Internal Medicine 08/22/24 Tubing Oiler Relationship Specialty Start Date End Date Silverio Haley MD [address] [place] [address] PCP - General Internal Medicine 01/07/23 Gretchen Newton, YARD ENGINEER.PROVIDER ENGAGEMENT EXECUTIVE [address] [place] [address] Capsule Machine Operator Internal Medicine 08/22/24 Merced Hutchinson APRN.SALES MERCHANDISING SPECIALIST [address] [place] [address] Capsule Machine Operator Internal Medicine 08/22/24 Tubing Oiler Relationship Specialty Start Date End Date Silverio Haley MD [address] [place] [address] PCP - General Internal Medicine 01/07/23 Gretchen Newton APRN.PROVIDER ENGAGEMENT EXECUTIVE [address] [place] [address] Capsule Machine Operator Internal Medicine 08/22/24 Merced Hutchinson APRN.SALES MERCHANDISING SPECIALIST [address] [place] [address] Capsule Machine Operator Internal Medicine 08/22/24 Tubing Oiler Relationship Specialty Start Date End Date Silverio Haley MD [address] [place] [address] PCP - General Internal Medicine 01/07/23 Gretchen Newton APRN.PROVIDER ENGAGEMENT EXECUTIVE [address] [place] [address] Capsule Machine Operator Internal Medicine 08/22/24 Merced Hutchinson APRN.SALES MERCHANDISING SPECIALIST [address] [place] [address] Capsule Machine Operator Internal Medicine 08/22/24 Tubing Oiler Relationship Specialty Start Date End Date Silverio Haley MD [address] [place] [address] PCP - General Internal Medicine 01/07/23 Gretchen Newton APRN.PROVIDER ENGAGEMENT EXECUTIVE [address] [place] [address] Capsule Machine Operator Internal Medicine 08/22/24 Merced Hutchinson APRN.SALES MERCHANDISING SPECIALIST [address] [place] [address] Capsule Machine Operator Internal Medicine 08/22/24 Tubing Oiler Relationship Specialty Start Date End Date Silverio Haley MD [address] [place] [address] PCP - General Internal Medicine 01/07/23 Gretchen Newton YARD ENGINEER.PROVIDER ENGAGEMENT EXECUTIVE [address] [place] [address] Capsule Machine Operator Internal Medicine 08/22/24 Merced Hutchinson APRN.SALES MERCHANDISING SPECIALIST [address] [place] [address] Capsule Machine Operator Internal Medicine 08/22/24 Tubing Oiler Relationship Specialty Start Date End Date Silverio Haley MD [address] [place] [address] PCP - General Internal Medicine 01/07/23 Gretchen Newton YARD ENGINEER.PROVIDER ENGAGEMENT EXECUTIVE [address] [place] [address] Capsule Machine Operator Internal Medicine 08/22/24 Merced Hutchinson APRN.SALES MERCHANDISING SPECIALIST [address] [place] [address] Capsule Machine Operator Internal Medicine 08/22/24 Tubing Oiler Relationship Specialty Start Date End Date Silverio Haley MD [address] [place] [address] PCP - General Internal Medicine 01/07/23 Gretchen Newton, YARD ENGINEER.PROVIDER ENGAGEMENT EXECUTIVE [address] [place] [address] Capsule Machine Operator Internal Medicine 08/22/24 Merced Hutchinson YARD ENGINEER.SALES MERCHANDISING SPECIALIST [address] [place] [address] [facility] Internal Medicine 08/22/24 Tubing Oiler Relationship Specialty Start Date End Date Silverio Haley MD [address] [place] [address] PCP - General Internal Medicine 01/07/23 Gretchen Newton, YARD ENGINEER.PROVIDER ENGAGEMENT EXECUTIVE [address] [place] [address] [facility] Internal Medicine 08/22/24 Merced Hutchinson APRN.SALES MERCHANDISING SPECIALIST [address] [place] [address] [facility] Internal Medicine 08/22/24 Tubing Oiler Relationship Specialty Start Date End Date Silverio Haley MD [address] [place] [address] PCP - General Internal Medicine 01/07/23 Gretchen Newton, YARD ENGINEER.PROVIDER ENGAGEMENT EXECUTIVE [address] [facility] [place] [address] [facility] Internal Medicine 08/22/24 Merced Hutchinson APRN.SALES MERCHANDISING SPECIALIST [address] [facility] [place] [address] Capsule Machine Operator Internal Medicine 08/22/24 Tubing Oiler Relationship Specialty Start Date End Date Silverio Haley MD [address] [facility] [place] [address] PCP - General Internal Medicine 01/07/23 Gretchen Newton, YARD ENGINEER.PROVIDER ENGAGEMENT EXECUTIVE [address] [facility] [place] [address] Capsule Machine Operator Internal Medicine 08/22/24 Merced Hutchinson YARD ENGINEER.SALES MERCHANDISING SPECIALIST [address] [facility] [place] [address] Capsule Machine Operator Internal Medicine 08/22/24 Tubing Oiler Relationship Specialty Start Date End Date Silverio Haley MD [address] [facility] [place] [address] PCP - General Internal Medicine 01/07/23 Gretchen Newton, YARD ENGINEER.PROVIDER ENGAGEMENT EXECUTIVE [address] [facility] [place] [address] Capsule Machine Operator Internal Medicine 08/22/24 Merced Hutchinson YARD ENGINEER.SALES MERCHANDISING SPECIALIST [address] [facility] [place] [address] Capsule Machine Operator Internal Medicine 08/22/24 Tubing Oiler Relationship Specialty Start Date End Date Silverio Haley MD [address] [facility] [place] [address] PCP - General Internal Medicine 01/07/23 Gretchen Newton, YARD ENGINEER.PROVIDER ENGAGEMENT EXECUTIVE [address] [facility] [place] [address] Capsule Machine Operator Internal Medicine 08/22/24 Merced Hutchinson APRN.CNP [address] [place] [address] [facility] Internal Medicine 08/22/24 Team Status: Active [...] November 22, 2024 End: November 22, 2024 Tubing Oiler Relationship Specialty Start Date End Date Marcelino Albert MD [address] [place] [address] PCP - General 10/10/16 Tubing Oiler Relationship Specialty Start Date End Date Marcelino Albert MD [address] [facility] [address] [place], [place] [id number] PCP - General 10/10/16 Tubing Oiler Relationship Specialty Start Date End Date Silverio Haley MD [address] [place], [place] [address] PCP - General Internal Medicine 01/07/23 Gretchen Newton, YARD ENGINEER.PROVIDER ENGAGEMENT EXECUTIVE [address] [place] [address] Capsule Machine Operator Internal Medicine 08/22/24 Merced Hutchinson, YARD ENGINEER.SALES MERCHANDISING SPECIALIST [address] [place] [address] Capsule Machine Operator Internal Medicine 12/06/24 Tubing Oiler Relationship Specialty Start Date End Date Silverio Haley [address] [place] [address] PCP - General Internal Medicine 12/15/24 Tubing Oiler Relationship Specialty Start Date End Date Silverio Haley [address] [place] [address] PCP - General Internal Medicine 12/15/24 Tubing Oiler Relationship Specialty Start Date End Date Silverio Haley MD [address] [place] [address] PCP - General Internal Medicine 01/07/23 Gretchen Newton, YARD ENGINEER.PROVIDER ENGAGEMENT EXECUTIVE [address] [place] [address] Capsule Machine Operator Internal Medicine 08/22/24 Merced Hutchinson APRN.MANUELITO [address] [place] [address] Capsule Machine Operator Internal Medicine 12/06/24 Tubing Oiler Relationship Specialty Start Date End Date Silverio Haley [address] [place] [address] PCP - General Internal Medicine 12/15/24 Tubing Oiler Relationship Specialty Start Date End Date Silverio Haley [address] [place] [address] PCP - General Internal Medicine 12/15/24 Tubing Oiler Relationship Specialty Start Date End Date Silverio Haley [address] [place] [address] PCP - General Internal Medicine 12/15/24 Tubing Oiler Relationship Specialty Start Date End Date Silverio Haley [address] [place] [address] PCP - General Internal Medicine 12/15/24 Tubing Oiler Relationship Specialty Start Date End Date Silverio Haley [address] [place] [address] PCP - General Internal Medicine 12/15/24 Tubing Oiler Relationship Specialty Start Date End Date Silverio Haley [address] [place] [address] PCP - General Internal Medicine 12/15/24 Tubing Oiler Relationship Specialty Start Date End Date Silverio Haley [address] [place] [address] PCP - General Internal Medicine 12/15/24 Tubing Oiler Relationship Specialty Start Date End Date Silverio Haley MD [address] [place] [address] PCP - General Internal Medicine 01/07/23 Gretchen Newton, YARD ENGINEER.PROVIDER ENGAGEMENT EXECUTIVE [address] [place] [address] Capsule Machine Operator Internal Medicine 08/22/24 01/31/25 Merced Hutchinson, YARD ENGINEER.SALES MERCHANDISING SPECIALIST [address] [place] [address] Capsule Machine Operator Internal Medicine 12/06/24 Gretchen Newton, YARD ENGINEER.PROVIDER ENGAGEMENT EXECUTIVE [address] [facility] [place] [address] Capsule Machine Operator Internal Medicine 02/01/25 Tubing Oiler Relationship Specialty Start Date End Date Silverio Haley MD [address] [place] [address] PCP - General Internal Medicine 01/07/23 Merced Hutchinson, YARD ENGINEER.SALES MERCHANDISING SPECIALIST [address] [place] [address] Capsule Machine Operator Internal Medicine 12/06/24 Gretchen Newton, YARD ENGINEER.PROVIDER ENGAGEMENT EXECUTIVE [address] [facility] [place] [address] [facility] Internal Medicine 02/01/25 Tubing Oiler Relationship Specialty Start Date End Date Silverio Haley [address] [place] [address] PCP - General Internal Medicine 12/15/24 Tubing Oiler Relationship Specialty Start Date End Date Silverio Haley MD [address] [facility] [place] [address] PCP - General Internal Medicine 01/07/23 Merced Hutchinson, YARD ENGINEER.SALES MERCHANDISING SPECIALIST [address] [facility] [place] [address] Capsule Machine Operator Internal Medicine 12/06/24 Gretchen Newton, YARD ENGINEER.PROVIDER ENGAGEMENT EXECUTIVE [address] [facility] [place] [address] Capsule Machine Operator Internal Medicine 02/01/25 Tubing Oiler Relationship Specialty Start Date End Date Silverio Haley MD [address] [facility] [place] [address] PCP - General Internal Medicine 01/07/23 Merced Hutchinson, YARD ENGINEER.SALES MERCHANDISING SPECIALIST [address] [facility] [place] [address] Capsule Machine Operator Internal Medicine 12/06/24 Gretchen Newton, YARD ENGINEER.PROVIDER ENGAGEMENT EXECUTIVE [address] [facility] [place] [address] Capsule Machine Operator Internal Medicine 02/01/25 Tubing Oiler Relationship Specialty Start Date End Date Silverio Haley [address] [facility] [place] [address] PCP - General Internal Medicine 12/15/24 Tubing Oiler Relationship Specialty Start Date End Date Silverio Haley [address] [facility] [place] [address] PCP - General Internal Medicine 12/15/24 Tubing Oiler Relationship Specialty Start Date End Date Silverio Haley MD [address] [facility] [place] [address] PCP - General Internal Medicine 01/07/23 Merced Hutchinson APRN.SALES MERCHANDISING SPECIALIST [address] [facility] [place] [address] Capsule Machine Operator Internal Medicine 12/06/24 Gretchen Newton APRN.PROVIDER ENGAGEMENT EXECUTIVE [address] [facility] [place] [address] Capsule Machine Operator Internal Medicine 02/01/25 Team Status: Active Member Role/Relationship Status Dates Dr. Silverio Haley MD Primary Care Provider Active Team Status: Inactive Member Role/Relationship Status Dates Dr. Silverio Haley MD Primary Care Provider Active Start: May 15, 2025 End: May 15, 2025 Dr. Leonardo Farr DO Emergency Provider Activ e Start: May 15, 2025 End: May 15, 2025 Reason for Visit (unrecogniz ed section and content) Reason Comments Abdominal Pain patient was a transf er from [facility] for abd pain and was told that her abd mass that has grown in size and that she needed to be sent to [facility] for evaulation.Patient is alert and oriented [...] Comments Hospital F/U Reason Comments ER F/U [facility] 03/14/20 and then transferred to [facility] 03/23/23 chronic pancreatitis Medication Problem states since startin denzel Flannery her legs are shaking or constantly moving [...] 2 wee ks Reason Comments ED Follow-up [facility] ED follow up 12/13 12/05 for stomach [...] Reason Comments Medication Dosage Adjustment increased d [place] Reason Comments Established Patient X 3 weeks [...] x 1 month Reason Comments ED Follow-up [facility] ED follow up 09/24/2024 for left flank pain Reason Comments Cough Sore throat, AL x 2 weeks Reason Comments Cough congestion, nasal dr baljit, sore throat and fever seen on 10/13 worse Specialty Diagnoses / Procedures Referred By Alma hollis Referred To Contact Internal Medicine / [facility] Diagnoses cough and sore throat Procedures EST SAME DAY Self [facility] [address] [place] [address] Referral ID Status Reason Start Date Expiration Date Visits Requested Visits Authorized [id number] Pending Review Financial Clearance Required - Self [...] pain Specialty Diagnoses / Procedures Referred By Alma hollis Referred To Contact Internal Medicine / [facility] Diagnoses left leg shaking and weakness, no injury -see 11/16/24 phone note Procedures 4C EST Self Robbin Hernandez MD [address] [place] [address] Phone: tel: fax: Referral ID Status Reason Start Date Expiration Date Visits Requested Visits Authorized [id number] Pending Review Financial Clearance Required - Self Pay 11/17/2024 02/15/2025 1 1 Reason Comments Knee Pain right knee has been ongoing for years but worse in the last few days. Has locked up and caused her to fall Been treating with tylenol but that doesn't helpAt one time was told had arthritis in the joint Specialty Diagnoses / Procedures Referred By Alma hollis Referred To Contact Internal Medicine / INTERNAL MEDICINE Diagnoses Right Knee Pain Procedures 4C EST Self Merced Hutchinson APRN.CNP [address] [place] [address] Phone: tel: fax: Referral ID Status Reason Start Date Expiration Date Visits Requested Visits Authorized [id number] Pending Review Financial Clearance Required - Self [...] placard Specialty Diagnoses / Procedures Referred By Alma hollis Referred To Contact Internal Medicine / INTERNAL MEDICINE Diagnoses knee pain/disability Procedures 4C EST Self Silverio Haley MD [address] [place] [address] Phone: tel: fax: Referral ID Status Reason Start Date Expiration Date V isits Requested Visits Authorized [id number] Closed Financial Clearance Required - Self Pay [...] for abdominal pain. Appointment 12/27/2024 See triage 12.27 . Reason Comments Pelvic Pain Pt presents [...] Referred By Alma hollis Referred To Contact Diagnoses Anything Medically Necessary Procedures Anything Medically Necessary Self [facility] [place] [place] [address] Referral ID Status Reason Start Date Expiration Date Visits Requested Visits Authorized [id number] Authorized Patient Cleared - Qualified HCAP/FA Referred [...] any alcohol or drug abuse patient.[facility] the event this information is protected by the Federal Confidentiality of Alcohol and Drug Abuse Patient Records regulations: The Federal rules restrict any use of the information to criminally investigate or prosecute any alcohol or drug abuse patient.[facility] Center[facility] the event this information is protected by the Federal Confidentiality of Alcohol and Drug Abuse Patient Records regulations: The Federal rules restrict any use of the information to criminally investigate or prosecute any alcohol or drug abuse patient.[facility] CenterIn the event this information is protected by the Federal Confidentiality of Alcohol and Drug Abuse Patient Records regulations: The Federal rules restrict any use of the information to criminally investigate or prosecute any alcohol or drug abuse patient.[facility] CenterIn the event this information is protected by the Federal Confidentiality of Alcohol and Drug Abuse Patient Records regulations: The Federal rules restrict any use of the information to criminally investigate or prosecute any alcohol or drug abuse patient.[facility] CenterIn the event this information is protected by the Federal Confidentiality of Alcohol and Drug Abuse Patient Records regulations: The Federal rules restrict any use of the information to criminally investigate or prosecute any alcohol or drug abuse patient.[facility] CenterIn the event this information is protected by the Federal Confidentiality of Alcohol and Drug Abuse Patient Records regulations: The Federal rules restrict any use of the information to criminally investigate or prosecute any alcohol or drug abuse patient.[facility] CenterIn the event this information is protected by the Federal Confidentiality of Alcohol and Drug Abuse Patient Records regulations: The Federal rules restrict any use of the information to criminally investigate or prosecute any alcohol or drug abuse patient.[facility] CenterIn the event this information is protected by the Federal Confidentiality of Alcohol and Drug Abuse Patient Records regulations: The Federal rules restrict any use of the information to criminally investigate or prosecute any alcohol or drug abuse patient.[facility] CenterIn the event this information is protected by the Federal Confidentiality of Alcohol and Drug Abuse Patient Records regulations: The Federal rules restrict any use of the information to criminally investigate or prosecute any alcohol or drug abuse patient.[facility] CenterIn the event this information is protected by the Federal Confidentiality of Alcohol and Drug Abuse Patient Records regulations: The Federal rules restrict any use of the information to criminally investigate or prosecute any alcohol or drug abuse patient.[facility] CenterIn the event this information is protected by the Federal Confidentiality of Alcohol and Drug Abuse Patient Records regulations: The Federal rules restrict any use of the information to criminally investigate or prosecute any alcohol or drug abuse patient.[facility] CenterIn the event this information is protected by the Federal Confidentiality of Alcohol and Drug Abuse Patient Records regulations: The Federal rules restrict any use of the information to criminally investigate or prosecute any alcohol or drug abuse patient.[facility] CenterIn the event this information is protected by the Federal Confidentiality of Alcohol and Drug Abuse Patient Records regulations: The Federal rules restrict any use of the information to criminally investigate or prosecute any alcohol or drug abuse patient.[facility] CenterIn the event this information is protected by the Federal Confidentiality of Alcohol and Drug Abuse Patient Records regulations: The Federal rules restrict any use of the information to criminally investigate or prosecute any alcohol or drug abuse patient.[facility] CenterIn the event this information is protected by the Federal Confidentiality of Alcohol and Drug Abuse Patient Records regulations: The Federal rules restrict any use of the information to criminally investigate or prosecute any alcohol or drug abuse patient.[facility] CenterIn the event this information is protected by the Federal Confidentiality of Alcohol and Drug Abuse Patient Records regulations: The Federal rules restrict any use of the information to criminally investigate or prosecute any alcohol or drug abuse patient.[facility] CenterIn the event this information is protected by the Federal Confidentiality of Alcohol and Drug Abuse Patient Records regulations: The Federal rules restrict any use of the information to criminally investigate or prosecute any alcohol or drug abuse patient.[facility] CenterIn the event this information is protected by the Federal Confidentiality of Alcohol and Drug Abuse Patient Records regulations: The Federal rules restrict any use of the information to criminally investigate or prosecute any alcohol or drug abuse patient.[facility] CenterIn the event this information is protected by the Federal Confidentiality of Alcohol and Drug Abuse Patient Records regulations: The Federal rules restrict any use of the information to criminally investigate or prosecute any alcohol or drug abuse patient.[facility] CenterIn the event this information is protected by the Federal Confidentiality of Alcohol and Drug Abuse Patient Records regulations: The Federal rules restrict any use of the information to criminally investigate or prosecute any alcohol or drug abuse patient.[facility] CenterIn the event this information is protected by the Federal Confidentiality of Alcohol and Drug Abuse Patient Records regulations: The Federal rules restrict any use of the information to criminally investigate or prosecute any alcohol or drug abuse patient.[facility] CenterIn the event this information is protected by the Federal Confidentiality of Alcohol and Drug Abuse Patient Records regulations: The Federal rules restrict any use of the information to criminally investigate or prosecute any alcohol or drug abuse patient.[facility] CenterIn the event this information is protected by the Federal Confidentiality of Alcohol and Drug Abuse Patient Records regulations: The Federal rules restrict any use of the information to criminally investigate or prosecute any alcohol or drug abuse patient.[facility] CenterIn the event this information is protected by the Federal Confidentiality of Alcohol and Drug Abuse Patient Records regulations: The Federal rules restrict any use of the information to criminally investigate or prosecute any alcohol or drug abuse patient.[facility] CenterIn the event this information is protected by the Federal Confidentiality of Alcohol and Drug Abuse Patient Records regulations: The Federal rules restrict any use of the information to criminally investigate or prosecute any alcohol or drug abuse patient.[facility] CenterIn the event this information is protected by the Federal Confidentiality of Alcohol and Drug Abuse Patient Records regulations: The Federal rules restrict any use of the information to criminally investigate or prosecute any alcohol or drug abuse patient.[facility] CenterIn the event this information is protected by the Federal Confidentiality of Alcohol and Drug Abuse Patient Records regulations: The Federal rules restrict any use of the information to criminally investigate or prosecute any alcohol or drug abuse patient.[facility] CenterIn the event this information is protected by the Federal Confidentiality of Alcohol and Drug Abuse Patient Records regulations: The Federal rules restrict any use of the information to criminally investigate or prosecute any alcohol or drug abuse patient.[facility] CenterIn the event this information is protected by the Federal Confidentiality of Alcohol and Drug Abuse Patient Records regulations: The Federal rules restrict any use of the information to criminally investigate or prosecute any alcohol or drug abuse patient.[facility] CenterIn the event this information is protected by the Federal Confidentiality of Alcohol and Drug Abuse Patient Records regulations: The Federal rules restrict any use of the information to criminally investigate or prosecute any alcohol or drug abuse patient.[facility] CenterIn the event this information is protected by the Federal Confidentiality of Alcohol and Drug Abuse Patient Records regulations: The Federal rules restrict any use of the information to criminally investigate or prosecute any alcohol or drug abuse patient.[facility] CenterIn the event this information is protected by the Federal Confidentiality of Alcohol and Drug Abuse Patient Records regulations: The Federal rules restrict any use of the information to criminally investigate or prosecute any alcohol or drug abuse patient.[facility] CenterIn the event this information is protected by the Federal Confidentiality of Alcohol and Drug Abuse Patient Records regulations: The Federal rules restrict any use of the information to criminally investigate or prosecute any alcohol or drug abuse patient.[facility] CenterIn the event this information is protected by the Federal Confidentiality of Alcohol and Drug Abuse Patient Records regulations: The Federal rules restrict any use of the information to criminally investigate or prosecute any alcohol or drug abuse patient.[facility] CenterIn the event this information is protected by the Federal Confidentiality of Alcohol and Drug Abuse Patient Records regulations: The Federal rules restrict any use of the information to criminally investigate or prosecute any alcohol or drug abuse patient.[facility] CenterIn the event this information is protected by the Federal Confidentiality of Alcohol and Drug Abuse Patient Records regulations: The Federal rules restrict any use of the information to criminally investigate or prosecute any alcohol or drug abuse patient.[facility] CenterIn the event this information is protected by the Federal Confidentiality of Alcohol and Drug Abuse Patient Records regulations: The Federal rules restrict any use of the information to criminally investigate or prosecute any alcohol or drug abuse patient.[facility] CenterIn the event this information is protected by the Federal Confidentiality of Alcohol and Drug Abuse Patient Records regulations: The Federal rules restrict any use of the information to criminally investigate or prosecute any alcohol or drug abuse patient.[facility] CenterIn the event this information is protected by the Federal Confidentiality of Alcohol and Drug Abuse Patient Records regulations: The Federal rules restrict any use of the information to criminally investigate or prosecute any alcohol or drug abuse patient.[facility] CenterIn the event this information is protected by the Federal Confidentiality of Alcohol and Drug Abuse Patient Records regulations: The Federal rules restrict any use of the information to criminally investigate or prosecute any alcohol or drug abuse patient.[facility] CenterIn the event this information is protected by the Federal Confidentiality of Alcohol and Drug Abuse Patient Records regulations: The Federal rules restrict any use of the information to criminally investigate or prosecute any alcohol or drug abuse patient.[facility] CenterIn the event this information is protected by the Federal Confidentiality of Alcohol and Drug Abuse Patient Records regulations: The Federal rules restrict any use of the information to criminally investigate or prosecute any alcohol or drug abuse patient.[facility] CenterIn the event this information is protected by the Federal Confidentiality of Alcohol and Drug Abuse Patient Records regulations: The Federal rules restrict any use of the information to criminally investigate or prosecute any alcohol or drug abuse patient.[facility] CenterIn the event this information is protected by the Federal Confidentiality of Alcohol and Drug Abuse Patient Records regulations: The Federal rules restrict any use of the information to criminally investigate or prosecute any alcohol or drug abuse patient.[facility] CenterIn the event this information is protected by the Federal Confidentiality of Alcohol and Drug Abuse Patient Records regulations: The Federal rules restrict any use of the information to criminally investigate or prosecute any alcohol or drug abuse patient.[facility] CenterIn the event this information is protected by the Federal Confidentiality of Alcohol and Drug Abuse Patient Records regulations: The Federal rules restrict any use of the information to criminally investigate or prosecute any alcohol or drug abuse patient.[facility] CenterIn the event this information is protected by the Federal Confidentiality of Alcohol and Drug Abuse Patient Records regulations: The Federal rules restrict any use of the information to criminally investigate or prosecute any alcohol or drug abuse patient.[facility] CenterIn the event this information is protected by the Federal Confidentiality of Alcohol and Drug Abuse Patient Records regulations: The Federal rules restrict any use of the information to criminally investigate or prosecute any alcohol or drug abuse patient.[facility] CenterIn the event this information is protected by the Federal Confidentiality of Alcohol and Drug Abuse Patient Records regulations: The Federal rules restrict any use of the information to criminally investigate or prosecute any alcohol or drug abuse patient.[facility] CenterIn the event this information is protected by the Federal Confidentiality of Alcohol and Drug Abuse Patient Records regulations: The Federal rules restrict any use of the information to criminally investigate or prosecute any alcohol or drug abuse patient.[facility] CenterIn the event this information is protected by the Federal Confidentiality of Alcohol and Drug Abuse Patient Records regulations: The Federal rules restrict any use of the information to criminally investigate or prosecute any alcohol or drug abuse patient.[facility] CenterIn the event this information is protected by the Federal Confidentiality of Alcohol and Drug Abuse Patient Records regulations: The Federal rules restrict any use of the information to criminally investigate or prosecute any alcohol or drug abuse patient.[facility] CenterIn the event this information is protected by the Federal Confidentiality of Alcohol and Drug Abuse Patient Records regulations: The Federal rules restrict any use of the information to criminally investigate or prosecute any alcohol or drug abuse patient.[facility] CenterIn the event this information is protected by the Federal Confidentiality of Alcohol and Drug Abuse Patient Records regulations: The Federal rules restrict any use of the information to criminally investigate or prosecute any alcohol or drug abuse patient.[facility] CenterIn the event this information is protected by the Federal Confidentiality of Alcohol and Drug Abuse Patient Records regulations: The Federal rules restrict any use of the information to criminally investigate or prosecute any alcohol or drug abuse patient.[facility] CenterIn the event this information is protected by the Federal Confidentiality of Alcohol and Drug Abuse Patient Records regulations: The Federal rules restrict any use of the information to criminally investigate or prosecute any alcohol or drug abuse patient.[facility] CenterIn the event this information is protected by the Federal Confidentiality of Alcohol and Drug Abuse Patient Records regulations: The Federal rules restrict any use of the information to criminally investigate or prosecute any alcohol or drug abuse patient.[facility] CenterIn the event this information is protected by the Federal Confidentiality of Alcohol and Drug Abuse Patient Records regulations: The Federal rules restrict any use of the information to criminally investigate or prosecute any alcohol or drug abuse patient.[facility] CenterIn the event this information is protected by the Federal Confidentiality of Alcohol and Drug Abuse Patient Records regulations: The Federal rules restrict any use of the information to criminally investigate or prosecute any alcohol or drug abuse patient.[facility] CenterIn the event this information is protected by the Federal Confidentiality of Alcohol and Drug Abuse Patient Records regulations: The Federal rules restrict any use of the information to criminally investigate or prosecute any alcohol or drug abuse patient.[facility] CenterIn the event this information is protected by the Federal Confidentiality of Alcohol and Drug Abuse Patient Records regulations: The Federal rules restrict any use of the information to criminally investigate or prosecute any alcohol or drug abuse patient.[facility] CenterIn the event this information is protected by the Federal Confidentiality of Alcohol and Drug Abuse Patient Records regulations: The Federal rules restrict any use of the information to criminally investigate or prosecute any alcohol or drug abuse patient.[facility] CenterIn the event this information is protected by the Federal Confidentiality of Alcohol and Drug Abuse Patient Records regulations: The Federal rules restrict any use of the information to criminally investigate or prosecute any alcohol or drug abuse patient.[facility] CenterIn the event this information is protected by the Federal Confidentiality of Alcohol and Drug Abuse Patient Records regulations: The Federal rules restrict any use of the information to criminally investigate or prosecute any alcohol or drug abuse patient.[facility] CenterIn the event this information is protected by the Federal Confidentiality of Alcohol and Drug Abuse Patient Records regulations: The Federal rules restrict any use of the information to criminally investigate or prosecute any alcohol or drug abuse patient.[facility] CenterIn the event this information is protected by the Federal Confidentiality of Alcohol and Drug Abuse Patient Records regulations: The Federal rules restrict any use of the information to criminally investigate or prosecute any alcohol or drug abuse patient.[facility] CenterIn the event this information is protected by the Federal Confidentiality of Alcohol and Drug Abuse Patient Records regulations: The Federal rules restrict any use of the information to criminally investigate or prosecute any alcohol or drug abuse patient.[facility] CenterIn the event this information is protected by the Federal Confidentiality of Alcohol and Drug Abuse Patient Records regulations: The Federal rules restrict any use of the information to criminally investigate or prosecute any alcohol or drug abuse patient.[facility] CenterIn the event this information is protected by the Federal Confidentiality of Alcohol and Drug Abuse Patient Records regulations: The Federal rules restrict any use of the information to criminally investigate or prosecute any alcohol or drug abuse patient.[facility] CenterIn the event this information is protected by the Federal Confidentiality of Alcohol and Drug Abuse Patient Records regulations: The Federal rules restrict any use of the information to criminally investigate or prosecute any alcohol or drug abuse patient.[facility] CenterIn the event this information is protected by the Federal Confidentiality of Alcohol and Drug Abuse Patient Records regulations: The Federal rules restrict any use of the information to criminally investigate or prosecute any alcohol or drug abuse patient.[facility] CenterIn the event this information is protected by the Federal Confidentiality of Alcohol and Drug Abuse Patient Records regulations: The Federal rules restrict any use of the information to criminally investigate or prosecute any alcohol or drug abuse patient.[facility] CenterIn the event this information is protected by the Federal Confidentiality of Alcohol and Drug Abuse Patient Records regulations: The Federal rules restrict any use of the information to criminally investigate or prosecute any alcohol or drug abuse patient.[facility] CenterIn the event this information is protected by the Federal Confidentiality of Alcohol and Drug Abuse Patient Records regulations: The Federal rules restrict any use of the information to criminally investigate or prosecute any alcohol or drug abuse patient.[facility] CenterIn the event this information is protected by the Federal Confidentiality of Alcohol and Drug Abuse Patient Records regulations: The Federal rules restrict any use of the information to criminally investigate or prosecute any alcohol or drug abuse patient.[facility] CenterIn the event this information is protected by the Federal Confidentiality of Alcohol and Drug Abuse Patient Records regulations: The Federal rules restrict any use of the information to criminally investigate or prosecute any alcohol or drug abuse patient.[facility] CenterIn the event this information is protected by the Federal Confidentiality of Alcohol and Drug Abuse Patient Records regulations: The Federal rules restrict any use of the information to criminally investigate or prosecute any alcohol or drug abuse patient.[facility] CenterIn the event this information is protected by the Federal Confidentiality of Alcohol and Drug Abuse Patient Records regulations: The Federal rules restrict any use of the information to criminally investigate or prosecute any alcohol or drug abuse patient.[facility] CenterIn the event this information is protected by the Federal Confidentiality of Alcohol and Drug Abuse Patient Records regulations: The Federal rules restrict any use of the information to criminally investigate or prosecute any alcohol or drug abuse patient.[facility] CenterIn the event this information is protected by the Federal Confidentiality of Alcohol and Drug Abuse Patient Records regulations: The Federal rules restrict any use of the information to criminally investigate or prosecute any alcohol or drug abuse patient.[facility] CenterIn the event this information is protected by the Federal Confidentiality of Alcohol and Drug Abuse Patient Records regulations: The Federal rules restrict any use of the information to criminally investigate or prosecute any alcohol or drug abuse patient.[facility] CenterIn the event this information is protected by the Federal Confidentiality of Alcohol and Drug Abuse Patient Records regulations: The Federal rules restrict any use of the information to criminally investigate or prosecute any alcohol or drug abuse patient.[facility] CenterIn the event this information is protected by the Federal Confidentiality of Alcohol and Drug Abuse Patient Records regulations: The Federal rules restrict any use of the information to criminally investigate or prosecute any alcohol or drug abuse patient.[facility] CenterIn the event this information is protected by the Federal Confidentiality of Alcohol and Drug Abuse Patient Records regulations: The Federal rules restrict any use of the information to criminally investigate or prosecute any alcohol or drug abuse patient.[facility] CenterIn the event this information is protected by the Federal Confidentiality of Alcohol and Drug Abuse Patient Records regulations: The Federal rules restrict any use of the information to criminally investigate or prosecute any alcohol or drug abuse patient.[facility] CenterIn the event this information is protected by the Federal Confidentiality of Alcohol and Drug Abuse Patient Records regulations: The Federal rules restrict any use of the information to criminally investigate or prosecute any alcohol or drug abuse patient.[facility] CenterIn the event this information is protected by the Federal Confidentiality of Alcohol and Drug Abuse Patient Records regulations: The Federal rules restrict any use of the information to criminally investigate or prosecute any alcohol or drug abuse patient.[facility] CenterIn the event this information is protected by the Federal Confidentiality of Alcohol and Drug Abuse Patient Records regulations: The Federal rules restrict any use of the information to criminally investigate or prosecute any alcohol or drug abuse patient.[facility] CenterIn the event this information is protected by the Federal Confidentiality of Alcohol and Drug Abuse Patient Records regulations: The Federal rules restrict any use of the information to criminally investigate or prosecute any alcohol or drug abuse patient.[facility] CenterIn the event this information is protected by the Federal Confidentiality of Alcohol and Drug Abuse Patient Records regulations: The Federal rules restrict any use of the information to criminally investigate or prosecute any alcohol or drug abuse patient.[facility] CenterIn the event this information is protected by the Federal Confidentiality of Alcohol and Drug Abuse Patient Records regulations: The Federal rules restrict any use of the information to criminally investigate or prosecute any alcohol or drug abuse patient.[facility] CenterIn the event this information is protected by the Federal Confidentiality of Alcohol and Drug Abuse Patient Records regulations: The Federal rules restrict any use of the information to criminally investigate or prosecute any alcohol or drug abuse patient.[facility] CenterIn the event this information is protected by the Federal Confidentiality of Alcohol and Drug Abuse Patient Records regulations: The Federal rules restrict any use of the information to criminally investigate or prosecute any alcohol or drug abuse patient.[facility] CenterIn the event this information is protected by the Federal Confidentiality of Alcohol and Drug Abuse Patient Records regulations: The Federal rules restrict any use of the information to criminally investigate or prosecute any alcohol or drug abuse patient.[facility] CenterIn the event this information is protected by the Federal Confidentiality of Alcohol and Drug Abuse Patient Records regulations: The Federal rules restrict any use of the information to criminally investigate or prosecute any alcohol or drug abuse patient.[facility] CenterIn the event this information is protected by the Federal Confidentiality of Alcohol and Drug Abuse Patient Records regulations: The Federal rules restrict any use of the information to criminally investigate or prosecute any alcohol or drug abuse patient.[facility] CenterIn the event this information is protected by the Federal Confidentiality of Alcohol and Drug Abuse Patient Records regulations: The Federal rules restrict any use of the information to criminally investigate or prosecute any alcohol or drug abuse patient.[facility] CenterIn the event this information is protected by the Federal Confidentiality of Alcohol and Drug Abuse Patient Records regulations: The Federal rules restrict any use of the information to criminally investigate or prosecute any alcohol or drug abuse patient.[facility] CenterIn the event this information is protected by the Federal Confidentiality of Alcohol and Drug Abuse Patient Records regulations: The Federal rules restrict any use of the information to criminally investigate or prosecute any alcohol or drug abuse patient.[facility] CenterIn the event this information is protected by the Federal Confidentiality of Alcohol and Drug Abuse Patient Records regulations: The Federal rules restrict any use of the information to criminally investigate or prosecute any alcohol or drug abuse patient.[facility] CenterIn the event this information is protected by the Federal Confidentiality of Alcohol and Drug Abuse Patient Records regulations: The Federal rules restrict any use of the information to criminally investigate or prosecute any alcohol or drug abuse patient.[facility] CenterIn the event this information is protected by the Federal Confidentiality of Alcohol and Drug Abuse Patient Records regulations: The Federal rules restrict any use of the information to criminally investigate or prosecute any alcohol or drug abuse patient.[facility] CenterIn the event this information is protected by the Federal Confidentiality of Alcohol and Drug Abuse Patient Records regulations: The Federal rules restrict any use of the information to criminally investigate or prosecute any alcohol or drug abuse patient.[facility] CenterIn the event this information is protected by the Federal Confidentiality of Alcohol and Drug Abuse Patient Records regulations: The Federal rules restrict any use of the information to criminally investigate or prosecute any alcohol or drug abuse patient.[facility] CenterIn the event this information is protected by the Federal Confidentiality of Alcohol and Drug Abuse Patient Records regulations: The Federal rules restrict any use of the information to criminally investigate or prosecute any alcohol or drug abuse patient.[facility] CenterIn the event this information is protected by the Federal Confidentiality of Alcohol and Drug Abuse Patient Records regulations: The Federal rules restrict any use of the information to criminally investigate or prosecute any alcohol or drug abuse patient.[facility] CenterIn the event this information is protected by the Federal Confidentiality of Alcohol and Drug Abuse Patient Records regulations: The Federal rules restrict any use of the information to criminally investigate or prosecute any alcohol or drug abuse patient.[facility] CenterIn the event this information is protected by the Federal Confidentiality of Alcohol and Drug Abuse Patient Records regulations: The Federal rules restrict any use of the information to criminally investigate or prosecute any alcohol or drug abuse patient.[facility] CenterIn the event this information is protected by the Federal Confidentiality of Alcohol and Drug Abuse Patient Records regulations: The Federal rules restrict any use of the information to criminally investigate or prosecute any alcohol or drug abuse patient.[facility] CenterIn the event this information is protected by the Federal Confidentiality of Alcohol and Drug Abuse Patient Records regulations: The Federal rules restrict any use of the information to criminally investigate or prosecute any alcohol or drug abuse patient.[facility] CenterIn the event this information is protected by the Federal Confidentiality of Alcohol and Drug Abuse Patient Records regulations: The Federal rules restrict any use of the information to criminally investigate or prosecute any alcohol or drug abuse patient.[facility] CenterIn the event this information is protected by the Federal Confidentiality of Alcohol and Drug Abuse Patient Records regulations: The Federal rules restrict any use of the information to criminally investigate or prosecute any alcohol or drug abuse patient.[facility] CenterIn the event this information is protected by the Federal Confidentiality of Alcohol and Drug Abuse Patient Records regulations: The Federal rules restrict any use of the information to criminally investigate or prosecute any alcohol or drug abuse patient.[facility] CenterIn the event this information is protected by the Federal Confidentiality of Alcohol and Drug Abuse Patient Records regulations: The Federal rules restrict any use of the information to criminally investigate or prosecute any alcohol or drug abuse patient.[facility] CenterIn the event this information is protected by the Federal Confidentiality of Alcohol and Drug Abuse Patient Records regulations: The Federal rules restrict any use of the information to criminally investigate or prosecute any alcohol or drug abuse patient.[facility] CenterIn the event this information is protected by the Federal Confidentiality of Alcohol and Drug Abuse Patient Records regulations: The Federal rules restrict any use of the information to criminally investigate or prosecute any alcohol or drug abuse patient.[facility] CenterIn the event this information is protected by the Federal Confidentiality of Alcohol and Drug Abuse Patient Records regulations: The Federal rules restrict any use of the information to criminally investigate or prosecute any alcohol or drug abuse patient.[facility] CenterIn the event this information is protected by the Federal Confidentiality of Alcohol and Drug Abuse Patient Records regulations: The Federal rules restrict any use of the information to criminally investigate or prosecute any alcohol or drug abuse patient.[facility] CenterIn the event this information is protected by the Federal Confidentiality of Alcohol and Drug Abuse Patient Records regulations: The Federal rules restrict any use of the information to criminally investigate or prosecute any alcohol or drug abuse patient.[facility] CenterIn the event this information is protected by the Federal Confidentiality of Alcohol and Drug Abuse Patient Records regulations: The Federal rules restrict any use of the information to criminally investigate or prosecute any alcohol or drug abuse patient.[facility] CenterIn the event this information is protected by the Federal Confidentiality of Alcohol and Drug Abuse Patient Records regulations: The Federal rules restrict any use of the information to criminally investigate or prosecute any alcohol or drug abuse patient.[facility] CenterIn the event this information is protected by the Federal Confidentiality of Alcohol and Drug Abuse Patient Records regulations: The Federal rules restrict any use of the information to criminally investigate or prosecute any alcohol or drug abuse patient.[facility] Care Team (unrecognized sect ion and content) Care Team Personnel Name: MARCELINO ALBERT MD Member Role: Primary Care Physician Address: Address: [address] [place] [address] Name: ANNE BURROWS MD Position: ED Physician Member Role: ED Physician Address: Address: [address] [place] [id number] Care Team Related Persons Name: PLEASE, ASK Name: HORACE NEVILLE Care Team Personnel Name: MARCELINO ALBERT MD Member Role: Primary Care Physician Address: Address: [address] [place] [address] Name: KAYLEN CHAVEZ MD Position: Resident Member Role: Resident Address: Address: [address] [place] [address] Name: KUN ELLIS MD Position: ED Physician Member Role: ED Physician Address: Address: [facility] [address] [place] [address] Name: Alejandra Hubbard RN Position: AO RN Member Role: RN Care Team Related Persons Name: PLEASE, ASK Name: HORACE NEVILLE Scheduled Active and Recently Administ ered Medications (unrecognized section and content) Medication Order 12/10/2024 12/11/2024 12/12/2024 morphine injection 4 mg (COMPLETED) 4 mg, IntraVENous, Once, On Thu12/12/24 at 1520, For 1 dose 1539 (Given - Provid er: Abi White RN) ondansetron (Zofran) injection 4 mg (COMPLETED) 4 mg, IntraVENous, Once, On Thu12/12/24 at 1520, For 1 dose 1539 (Given - Provid er: Abi White RN) oxyCODONE-acetaminophen (Percocet) 5-325 MG per tablet 1 [...] 12/17/24 at 1230, For 1 dose 1250 (New [...] BE BASED ON THE PRIMARY CLINICAL RECORDS. [employer] [facility]. provides no warranty or guarantee of the accuracy or completeness of information in this document.
[2025-05-27] MEDS: 0.9% Normal Saline (1000mL) 1,000 ML 1000 ML IV (17:18)
[2025-05-27 18:09] LABS: Anion Gap 12 (5-15); BUN 12 mg/dL (4-19); BUN/Creat Ratio 13.4 RATIO (10-20); Calcium,Total 9.5 mg/dL (7.6-11.0); Carbon Dioxide 23.6 mmol/L (21.0-32.0); Chloride 104 mmol/L (98-108); Estimated Creatinine Clearance 77.25 ml/min (50-250); Glucose 97 mg/dL (70-99); Potassium 3.7 mmol/L (3.3-5.1)
[2025-05-27 18:21] VITALS: BP 131/74; PULSE 82; RESP 16; TEMP 36.7; O2SAT 99
== END 2025-05-27 18:24 | disposition home or self-care (01) ==
PROVIDERS: Emergency Provider Emergency Medicine; PCP Internal Medicine; Visit Provider Emergency Medicine
DX: G43.909 Migraine, unspecified, not intractable, without status migrainosus (principal); F31.9 Bipolar disorder, unspecified; F17.210 Nicotine dependence, cigarettes, uncomplicated; Z90.710 Acquired absence of both cervix and uterus; E78.5 Hyperlipidemia, unspecified; Z87.442 Personal history of urinary calculi; Z90.49 Acquired absence of other specified parts of digestive tract; Z98.51 Tubal ligation status
CPT/HCPCS: 80048; 96361; 96374; 96375; 99284; A4216

== ENCOUNTER → 2025-07-10 | Outpatient (CLI) | payer SELFPAY | END | disposition home or self-care (01) | LOC: LABSPEC 08:29 | PROVIDERS: PCP Internal Medicine; Referring Provider Nurse Practitioner Acute Care; Visit Provider Nurse Practitioner Acute Care | DX: K58.0 Irritable bowel syndrome with diarrhea (principal); R19.7 Diarrhea, unspecified | CPT/HCPCS: 87493; 87506 ==